=== PATIENT | male | born 1965 | race Hispanic/Latino ===

== ENCOUNTER 2018-01-14 23:32 | Emergency (ER) | payer MEDICAID ==
--- OUTSIDE RECORDS SUMMARY | 2018-01-14 23:40 | XMS REPORT ---
:1965 [facility] Address [address] [place] [address] [address] [place] [address] Care Team Providers Name Role Phone WAYNE HEATH Unavailable Unavailable ZOE, TOMASZ JULIO Unavailable Unavailable ISABELLA, ANJELICA WEAVER Unavailable Unavailable LOREN, BETH MARTINEZ Unavailable Unavailable Problems This patient has no known problems. Allergies, Adverse Reactions, Alerts This patient has no known allergies or adverse reactions. Medications This patient has no known medications. Results Test Description Test Time Test Comments Text Results Atomic Results Result Comments CHINA KNEE, 2018-01-06 11:15:00 Reason for FINAL REPORT PATIENT COMPLETE (4 exam:->FALL, PAIN ID: [id number] VIEWS), RIGHT Bilateral knee series INDICATION: Fall, pain COMPARISON: None available IMPRESSION: Four images of the right knee and four images of the left knee are provided. The bones appear demineralized. No evident acute fracture or dislocation is seen bilaterally. Mild joint space loss suggests degenerative arthritic changes. Small knee joint effusions are suspected. There are extensive bilateral vascular calcifications. Signed: Tatiana Quezada MDReport Verified Date/Time: 01/06/2018 11:15:08 Reading Location: [facility] Radiology Reading Room A KNEE, 2018-01-06 11:15:00 Reason for FINAL REPORT PATIENT COMPLETE (4 exam:->FALL, PAIN ID: [id number] VIEWS), LEFT Bilateral knee series INDICATION: Fall, pain COMPARISON: None available IMPRESSION: Four images of the right knee and four images of the left knee are provided. The bones appear demineralized. No evident acute fracture or dislocation is seen bilaterally. Mild joint space loss suggests degenerative arthritic changes. Small knee joint effusions are suspected. There are extensive bilateral vascular calcifications. Signed: Tatiana Quezada MDReport Verified Date/Time: 01/06/2018 11:15:08 Reading Location: [facility] Reading Room W/PLT COUNT & AUTO DIFFERENTIAL 2018-01-06 10:58:00 Test Item Value Reference Range Comments WHITE BLOOD CELL COUNT (BEAKER) (test pubr=337) 2.9 K/ L 3.5-10.5 RED BLOOD CELL COUNT (BEAKER) (test huwl=504) 2.27 M/ L 4.63-6.08 HEMOGLOBIN (BEAKER) (test ptym=505) 7.1 GM/DL 13.7-17.5 HEMATOCRIT (BEAKER) (test mjkw=138) 21.0 % 40.1-51.0 MEAN CORPUSCULAR VOLUME (BEAKER) (test ekyx=741) 92.5 fL 79.0-92.2 MEAN CORPUSCULAR HEMOGLOBIN (BEAKER) (test afve=561) 31.3 pg 25.7-32.2 MEAN CORPUSCULAR HEMOGLOBIN CONC (BEAKER) (test uwkf=249) 33.8 GM/DL 32.3- 36.5 RED CELL DISTRIBUTION WIDTH (BEAKER) (test jpis=415) 17.2 % 11.6-14.4 PLATELET COUNT (BEAKER) (test uxpl=679) 42 K/CU MM 150-450 MEAN PLATELET VOLUME (BEAKER) (test mohk=232) 10.1 fL 9.4-12.4 NUCLEATED RED BLOOD CELLS (BEAKER) (test oklx=743) 0 /100 WBC 0-0 NEUTROPHILS RELATIVE PERCENT (BEAKER) (test yapt=465) 77 % LYMPHOCYTES RELATIVE PERCENT (BEAKER) (test lshj=288) 12 % MONOCYTES RELATIVE PERCENT (BEAKER) (test yuuc=771) 10 % EOSINOPHILS RELATIVE PERCENT (BEAKER) (test vyzr=540) 1 % BASOPHILS RELATIVE PERCENT (BEAKER) (test slvc=276) 0 % NEUTROPHILS ABSOLUTE COUNT (BEAKER) (test uhez=668) 2.21 K/ L 1.78-5.38 LYMPHOCYTES ABSOLUTE COUNT (BEAKER) (test nhfx=294) 0.33 K/ L 1.32-3.57 MONOCYTES ABSOLUTE COUNT (BEAKER) (test dsjq=878) 0.30 K/ L 0.30-0.82 EOSINOPHILS ABSOLUTE COUNT (BEAKER) (test efmz=026) 0.03 K/ L 0.04-0.54 BASOPHILS ABSOLUTE COUNT (BEAKER) (test nsgb=141) 0.00 K/ L 0.01-0.08 IMMATURE GRANULOCYTES-RELATIVE PERCENT (BEAKER) (test 0 % 0-1 rgvj=2899) [id number] 06:06:00 Test Item Value Reference Range Comments PHOSPHORUS (BEAKER) (test degc=827) 3.6 mg/dL 2.3-4.7 [id number] 06:06:00 Test Item Value Reference Range Comments MAGNESIUM (BEAKER) (test sese=784) 2.0 mg/dL 1.6-2.6 BASIC METABOLIC [id number] 06:06:00 Test Item Value Reference Range Comments SODIUM (BEAKER) (test 130 meq/L 136-145 uqgb=830) POTASSIUM (BEAKER) (test 4.4 meq/L 3.5-5.1 ikwh=099) CHLORIDE (BEAKER) (test 100 meq/L 98-107 qkhq=094) CO2 (BEAKER) (test 23 meq/L 22-29 iltc=176) BLOOD UREA NITROGEN 21 mg/dL 7-21 (BEAKER) (test ncum=565) CREATININE (BEAKER) (test 1.11 mg/dL 0.57-1.25 ukab=936) GLUCOSE RANDOM (BEAKER) 120 mg/dL 70-105 (test yaqu=305) CALCIUM (BEAKER) (test 9.4 mg/dL 8.4-10.2 pamf=905) EGFR (BEAKER) (test 70 mL/min/1.73 sq m ESTIMATED GFR IS NOT wlzk=8815) ACCURATE CREATININE CLEARANCE IN PREDICTING GLOMERULAR FILTRATION RATE. ESTIMATED GFR IS NOT APPLICABLE FOR DIALYSIS PATIENTS. Specimen slightly ictericPROTHROMBIN [id number] 06:02:00 Test Item Value Reference Range Comments PROTIME (BEAKER) (test wbhy=928) 22.9 seconds 11.7-14.7 INR (BEAKER) (test bxlm=864) 2.0 <=5.9 RECOMMENDED COUMADIN/WARFARIN INR THERAPY RANGESSTANDARD DOSE: 2.0 - 3.0 Includes: PROPHYLAXIS forvenous thrombosis, systemic embolization; TREATMENT for venous thrombosis and/or pulmonary embolus.HIGH RISK: Target INR is 2.5-3.5 for patients with mechanical heart valves.CALCIUM, [id number] 06:01:00 Test Item Value Reference Range Comments CALCIUM IONIZED (BEAKER) (test pqxe=360) 1.11 mmol/L 1.12-1.27 PH, BLOOD (BEAKER) (test vzzc=3087) 7.53 CORTISOL,60 [id number] 23:20:00 Test Item Value Reference Range Comments CORTISOL BASELINE NETWORKED (BEAKER) (test 4.8 mcg/dL teco=9305) CORTISOL 30 MINUTE NETWORKED (BEAKER) (test 9.2 mcg/dL wvll=1739) CORTISOL, 60 MINUTE (BEAKER) (test wvaz=2533) 12.6 ug/dL ACTH STIMULATION TEST INTERPRETATION GUIDELINES(Synonyms: Cortrosyn Test, Cosyntropin or Corticotropin Stimulation Test)Adenocorticotropic hormone (ACTH) is a tropic hormone, made in the pituitary gland, which travels trhough the bloodstream and stimulates the cortex of the adrenal glands to release cortisol. Cortisol is a primary hormone, which aids the body's metabolism of fats, carbohydrates, and protein as well as sodium and potassium regulation.ACTH Stimulation Test: Exogenous administrationof biologically active ACTH stimulates the secretion of cortisol from the adrenal gland. This test is used to evaluate adrenal function by measuring cortisol levels at baseline and at 30 and 60 minutesafter the administration of 250 micrograms of cosyntropin (Cortrosyn). Patients who have received exogenous corticosteroids immediately prior to performing the ACTH Stimulation Test will often have elevated baseline cortisol levels, which may lead to erroneous interpretation of test results. The notable exception is with dexamethasone.Normal Response: An increase in cortisol after stimulation by ACTHis normal. Post-stimulation cortisol concentration should be greater than 20 mcg/dL or the rate of rise from baseline cortisol should be greater than or equal to 9 mcg/dL.Patients with sepsis or septicshock: According to a study by Mindy et al (NEVAEH 2000,283( 8):2792-45), the ACTH Stimulation Test provides important prognostic information. This study defined 3 groups of patients with sepsis or septic shock : 1. Good Survival: Low basal cortisol (<or=34 mcg/dL) and high ACTH response (>9mcg/dL) 2. Intermediate Survival: Low basal cortisol (< 34 mcg/dL) and low response to ACTH (<or=9 mcg/dL) OR High basal cortisol (>34 mcg/dL) or high ACTH response (>9 mcg/dL) 3.Poor Survival: High basal cortisol (>34 mcg/dL) and low ACTH response (<or=9 mcg/dL) .Treatment of patients with relative adrenal dysfunction may be indicated based on test results and the clinical condition of the patient. Additional information, including treatment recommendations, is available in critically ill patients, approved by the Pharmacy, Nutrition, and Therapeutics Committee on 10/05/2004 and available through the Pharmacy Policy and Procedure Section on The Source.Do not run this test if systemic hydrocortisone, methylprednisolone, prednisolone or prednisone has been administered within the past 24 hours. Draw baseline cortisol level just prior to cosyntropin administration. Administer cosyntropin 0.25 mg diluted in 2-5 mL of normal saline slow IV Push over a period of 2 minutes. Draw serum cortisol level 30 minutes after cosyntropin administration. Draw serum cortisollevel 60 minutes after cosyntropin administration.CORTISOL,30 [id number] 22:35:00 Test Item Value Reference Range Comments CORTISOL BASELINE NETWORKED (BEAKER) (test 4.8 mcg/dL aomq=1969) CORTISOL, 30 MINUTE (BEAKER) (test yhax=0628) 9.2 ug/dL ACTH STIMULATION TEST INTERPRETATION GUIDELINES(Synonyms: Cortrosyn Test, Cosyntropin or Corticotropin Stimulation Test)Adenocorticotropic hormone (ACTH) is a tropic hormone, made in the pituitary gland, which travels trhough the bloodstream and stimulates the cortex of the adrenal glands to release cortisol. Cortisol is a primary hormone, which aids the body's metabolism of fats, carbohydrates, and protein as well as sodium and potassium regulation.ACTH Stimulation Test: Exogenous administrationof biologically active ACTH stimulates the secretion of cortisol from the adrenal gland. This test is used to evaluate adrenal function by measuring cortisol levels at baseline and at 30 and 60 minutesafter the administration of 250 micrograms of cosyntropin (Cortrosyn). Patients who have received exogenous corticosteroids immediately prior to performing the ACTH Stimulation Test will often have elevated baseline cortisol levels, which may lead to erroneous interpretation of test results. The notable exception is with dexamethasone.Normal Response: An increase in cortisol after stimulation by ACTHis normal. Post-stimulation cortisol concentration should be greater than 20 mcg/dL or the rate of rise from baseline cortisol should be greater than or equal to 9 mcg/dL.Patients with sepsis or septicshock: According to a study by Mindy et al (NEVAEH 2000,283( 8):1038-45), the ACTH Stimulation Test provides important prognostic information. This study defined 3 groups of patients with sepsis or septic shock : 1. Good Survival: Low basal cortisol (<or=34 mcg/dL) and high ACTH response (>9mcg/dL) 2. Intermediate Survival: Low basal cortisol (< 34 mcg/dL) and low response to ACTH (<or=9 mcg/dL) OR High basal cortisol (>34 mcg/dL) or high ACTH response (>9 mcg/dL) 3.Poor Survival: High basal cortisol (>34 mcg/dL) and low ACTH response (<or=9 mcg/dL) .Treatment of patients with relative adrenal dysfunction may be indicated based on test results and the clinical condition of the patient. Additional information, including treatment recommendations, is available in critically ill patients, approved by the Pharmacy, Nutrition, and Therapeutics Committee on 10/05/2004 and available through the Pharmacy Policy and Procedure Section on The Source.Do not run this test if systemic hydrocortisone, methylprednisolone, prednisolone or prednisone has been administered within the past 24 hours. Draw baseline cortisol level just prior to cosyntropin administration. Administer cosyntropin 0.25 mg diluted in 2-5 mL of normal saline slow IV Push over a period of 2 minutes. Draw serum cortisol level 30 minutes after cosyntropin administration. Draw serum cortisollevel 60 minutes after cosyntropin administration.CORTISOL,[id number] 22:35:00 Test Item Value Reference Range Comments CORTISOL, BASELINE (TUNG) (test iofm=8755) 4.8 ug/dL ACTH STIMULATION TEST INTERPRETATION GUIDELINES(Synonyms: Cortrosyn Test, Cosyntropin or Corticotropin Stimulation Test)Adenocorticotropic hormone (ACTH) is a tropic hormone, made in the pituitary gland, which travels trhough the bloodstream and stimulates the cortex of the adrenal glands to release cortisol. Cortisol is a primary hormone, which aids the body's metabolism of fats, carbohydrates, and protein as well as sodium and potassium regulation.ACTH Stimulation Test: Exogenous administrationof biologically active ACTH stimulates the secretion of cortisol from the adrenal gland. This test is used to evaluate adrenal function by measuring cortisol levels at baseline and at 30 and 60 minutesafter the administration of 250 micrograms of cosyntropin (Cortrosyn). Patients who have received exogenous corticosteroids immediately prior to performing the ACTH Stimulation Test will often have elevated baseline cortisol levels, which may lead to erroneous interpretation of test results. The notable exception is with dexamethasone.Normal Response: An increase in cortisol after stimulation by ACTHis normal. Post-stimulation cortisol concentration should be greater than 20 mcg/dL or the rate of rise from baseline cortisol should be greater than or equal to 9 mcg/dL.Patients with sepsis or septicshock: According to a study by Mindy et al (NEVAEH 2000,283( 8):1038-45), the ACTH Stimulation Test provides important prognostic information. This study defined 3 groups of patients with sepsis or septic shock : 1. Good Survival: Low basal cortisol (<or=34 mcg/dL) and high ACTH response (>9mcg/dL) 2. Intermediate Survival: Low basal cortisol (< 34 mcg/dL) and low response to ACTH (<or=9 mcg/dL) OR High basal cortisol (>34 mcg/dL) or high ACTH response (>9 mcg/dL) 3.Poor Survival: High basal cortisol (>34 mcg/dL) and low ACTH response (<or=9 mcg/dL) .Treatment of patients with relative adrenal dysfunction may be indicated based on test results and the clinical condition of the patient. Additional information, including treatment recommendations, is available in critically ill patients, approved by the Pharmacy, Nutrition, and Therapeutics Committee on 10/05/2004 and available through the Pharmacy Policy and Procedure Section on The Source.Do not run this test if systemic hydrocortisone, methylprednisolone, prednisolone or prednisone has been administered within the past 24 hours. Draw baseline cortisol level just prior to cosyntropin administration. Administer cosyntropin 0.25 mg diluted in 2-5 mL of normal saline slow IV Push over a period of 2 minutes. Draw serum cortisol level 30 minutes after cosyntropin administration. Draw serum cortisollevel 60 minutes after cosyntropin administration.U/S, [id number] 17:54:00Reason for exam:->therapeuticFINAL REPORT History: Ascites. PROCEDURE: Following informed written consent,the patient's right lower quadrant was prepped and draped in the usual sterile manner. 2% lidocaine was given locally for anesthesia. No conscious sedation was administered. Using ultrasound guidance, a 5 Swedish one-step catheter was advanced percutaneously into the patient's right lower quadrant peritoneal cavity. Approximately 6.2 L of yellow fluid was removed. Small samples of the fluid were submitted to the lab for requested analysis. At the conclusion of the procedure, the catheter was withdrawn. Overall, the patient tolerated the procedure well without immediate complications and was discharged from the department in stable condition. FINDINGS: Limited sonographic examination of the abdomen performed prior to and during the procedure demonstrates a large volume of anechoic fluid in the peritoneal cavity. Following placement of the catheter, the catheter tip is noted to lie within the largest collection of fluid in the right lower quadrant. IMPRESSION: 1. Successful uncomplicated ultrasound-guided paracentesis. Signed: Karina Rain MDReport Verified Date/Time: 01/05/2018 17: 54:16 Reading Location: [place] [id number] Ul[facility] Reading Room [id number] 11:19:00 Test Item Value Reference Range Comments CORTISOL, TOTAL (BEAKER) (test xxli=4601) 2.7 ug/dL 3.7-19.4 [id number] 10:21:00 Test Item Value Reference Range Comments PHOSPHORUS (BEAKER) (test inng=276) 2.8 mg/dL 2.3-4.7 [id number] 10:21:00 Test Item Value Reference Range Comments MAGNESIUM (BEAKER) (test tggc=505) 1.9 mg/dL 1.6-2.6 BASIC METABOLIC [id number] 10:21:00 Test Item Value Reference Range Comments SODIUM (BEAKER) (test 127 meq/L 136-145 nsky=667) POTASSIUM (BEAKER) (test 5.0 meq/L 3.5-5.1 vsav=975) CHLORIDE (BEAKER) (test 100 meq/L 98-107 anjn=732) CO2 (BEAKER) (test 22 meq/L 22-29 hifo=198) BLOOD UREA NITROGEN 25 mg/dL 7-21 (BEAKER) (test rrrj=819) CREATININE (BEAKER) (test 1.17 mg/dL 0.57-1.25 mswy=810) GLUCOSE RANDOM (BEAKER) 84 mg/dL 70-105 (test wmxx=614) CALCIUM (BEAKER) (test 8.7 mg/dL 8.4-10.2 nmuf=608) EGFR (BEAKER) (test 65 mL/min/1.73 sq m ESTIMATED GFR IS NOT afah=7516) ACCURATE CREATININE CLEARANCE IN PREDICTING GLOMERULAR FILTRATION RATE. ESTIMATED GFR IS NOT APPLICABLE FOR DIALYSIS PATIENTS. Specimen slightly ictericCBC W/PLT COUNT & AUTO [id number] 08:42 :00 Test Item Value Reference Range Comments WHITE BLOOD CELL COUNT (BEAKER) (test otfe=582) 2.7 K/ L 3.5-10.5 RED BLOOD CELL COUNT (BEAKER) (test fgxe=103) 2.33 M/ L 4.63-6.08 HEMOGLOBIN (BEAKER) (test clhu=212) 7.3 GM/DL 13.7-17.5 HEMATOCRIT (BEAKER) (test xznp=988) 22.0 % 40.1-51.0 MEAN CORPUSCULAR VOLUME (BEAKER) (test hhdv=593) 94.4 fL 79.0-92.2 MEAN CORPUSCULAR HEMOGLOBIN (BEAKER) (test 31.3 pg 25.7-32.2 fxfu=227) MEAN CORPUSCULAR HEMOGLOBIN CONC (BEAKER) (test 33.2 GM/DL 32.3-36.5 axcc=221) RED CELL DISTRIBUTION WIDTH (BEAKER) (test 17.2 % 11.6-14.4 fgxk=063) PLATELET COUNT (BEAKER) (test ktxa=316) 45 K/CU MM 150-450 MEAN PLATELET VOLUME (BEAKER) (test yxqk=308) 9.3 fL 9.4-12.4 NUCLEATED RED BLOOD CELLS (BEAKER) (test 0 /100 WBC 0-0 nidb=351) NEUTROPHILS RELATIVE PERCENT (BEAKER) (test 60 % rzqi=794) LYMPHOCYTES RELATIVE PERCENT (BEAKER) (test 17 % sefj=369) MONOCYTES RELATIVE PERCENT (BEAKER) (test 16 % ipya=359) EOSINOPHILS RELATIVE PERCENT (BEAKER) (test 6 % gnto=725) BASOPHILS RELATIVE PERCENT (BEAKER) (test 0 % znui=466) NEUTROPHILS ABSOLUTE COUNT (BEAKER) (test 1.63 K/ L 1.78-5.38 zivh=645) LYMPHOCYTES ABSOLUTE COUNT (BEAKER) (test 0.45 K/ L 1.32-3.57 rgxz=199) MONOCYTES ABSOLUTE COUNT (BEAKER) (test rpss=951) 0.44 K/ L 0.30-0.82 EOSINOPHILS ABSOLUTE COUNT (BEAKER) (test 0.16 K/ L 0.04-0.54 zbbd=887) BASOPHILS ABSOLUTE COUNT (BEAKER) (test mpwo=456) 0.01 K/ L 0.01-0.08 IMMATURE GRANULOCYTES-RELATIVE PERCENT (BEAKER) 1 % 0-1 (test lhda=8426) (MANUAL DIFFERENTIAL)2018-01-05 08:42:00 Test Item Value Reference Range Comments TOTAL COUNTED (BEAKER) (test arcl=5373) WBC MORPHOLOGY (BEAKER) (test xfrs=461) Normal PLT MORPHOLOGY (BEAKER) (test rodz=210) Normal ANISOCYTOSIS (BEAKER) (test rdjw=942) 1+ few CALCIUM, [id number] 08:10:00 Test Item Value Reference Range Comments CALCIUM IONIZED (BEAKER) (test nnuy=632) 1.08 mmol/L 1.12-1.27 PH, BLOOD (BEAKER) (test ztqy=8635) 7.44 PROTHROMBIN [id number] 07:12:00 Test Item Value Reference Range Comments PROTIME (BEAKER) (test xecz=178) 22.4 seconds 11.7-14.7 INR (BEAKER) (test srgm=718) 2.0 <=5.9 RECOMMENDED COUMADIN/WARFARIN INR THERAPY RANGESSTANDARD DOSE: 2.0 - 3.0 Includes: PROPHYLAXIS forvenous thrombosis, systemic embolization; TREATMENT for venous thrombosis and/or pulmonary embolus.HIGH RISK: Target INR is 2.5-3.5 for patients with mechanical heart valves.[id number] 17:54:00 Test Item Value Reference Range Comments SODIUM (BEAKER) (test ykqd=955) 129 meq/L 136-145 POTASSIUM (BEAKER) (test ywri=268) 5.5 meq/L 3.5-5.1 CHLORIDE (BEAKER) (test sbqg=468) 101 meq/L 98-107 CO2 (BEAKER) (test yshf=464) 26 meq/L 22-29 Call [id number] with resultsCBC (HEMOGRAM ONLY)2018-01-04 07:16:00 Test Item Value Reference Range Comments WHITE BLOOD CELL COUNT (BEAKER) (test axvv=338) 2.9 K/ L 3.5-10.5 RED BLOOD CELL COUNT (BEAKER) (test lshv=266) 2.25 M/ L 4.63-6.08 HEMOGLOBIN (BEAKER) (test afab=204) 7.3 GM/DL 13.7-17.5 HEMATOCRIT (BEAKER) (test qdio=260) 21.3 % 40.1-51.0 MEAN CORPUSCULAR VOLUME (BEAKER) (test frba=928) 94.7 fL 79.0-92.2 MEAN CORPUSCULAR HEMOGLOBIN (BEAKER) (test 32.4 pg 25.7-32.2 lfgb=296) MEAN CORPUSCULAR HEMOGLOBIN CONC (BEAKER) (test 34.3 GM/DL 32.3-36.5 rsjf=206) RED CELL DISTRIBUTION WIDTH (BEAKER) (test 17.6 % 11.6-14.4 ubow=658) PLATELET COUNT (BEAKER) (test paag=509) 59 K/CU MM 150-450 MEAN PLATELET VOLUME (BEAKER) (test uqlp=491) 11.3 fL 9.4-12.4 NUCLEATED RED BLOOD CELLS (BEAKER) (test 0 /100 WBC 0-0 okyf=720) COMPREHENSIVE METABOLIC [id number] 06:49:00 Test Item Value Reference Range Comments TOTAL PROTEIN (BEAKER) 5.3 gm/dL 6.0-8.3 Specimen slightly (test viqg=132) hemolyzed ALBUMIN (BEAKER) (test 3.3 g/dL 3.5-5.0 Specimen slightly qoxu=5053) hemolyzed ALKALINE PHOSPHATASE 81 U/L 40-150 (BEAKER) (test ircb=185) BILIRUBIN TOTAL (BEAKER) 2.4 mg/dL 0.2-1.2 Specimen slightly (test dybz=345) hemolyzed SODIUM (BEAKER) (test 127 meq/L 136-145 zcom=801) POTASSIUM (BEAKER) (test 5.7 meq/L 3.5-5.1 Specimen slightly vxqb=999) hemolyzed CHLORIDE (BEAKER) (test 100 meq/L 98-107 awem=117) CO2 (BEAKER) (test 20 meq/L 22-29 dafq=442) BLOOD UREA NITROGEN 22 mg/dL 7-21 (BEAKER) (test plei=978) CREATININE (BEAKER) (test 1.14 mg/dL 0.57-1.25 Specimen slightly lwzf=201) hemolyzed GLUCOSE RANDOM (BEAKER) 96 mg/dL 70-105 (test gyef=323) CALCIUM (BEAKER) (test 8.9 mg/dL 8.4-10.2 aaon=878) AST (SGOT) (BEAKER) (test 30 U/L 5-34 Specimen slightly uddn=296) hemolyzed ALT (SGPT) (BEAKER) (test 8 U/L 6-55 Specimen slightly zzuo=297) hemolyzed EGFR (BEAKER) (test 67 mL/min/1.73 sq m ESTIMATED GFR IS NOT tevl=4314) ACCURATE CREATININE CLEARANCE IN PREDICTING GLOMERULAR FILTRATION RATE. ESTIMATED GFR IS NOT APPLICABLE FOR DIALYSIS PATIENTS. Specimen slightly ictericPROTHROMBIN [id number] 06:15:00 Test Item Value Reference Range Comments PROTIME (BEAKER) (test mqhr=239) 22.7 seconds 11.7-14.7 INR (BEAKER) (test tcxu=937) 2.0 <=5.9 RECOMMENDED COUMADIN/WARFARIN INR THERAPY RANGESSTANDARD DOSE: 2.0 - 3.0 Includes: PROPHYLAXIS forvenous thrombosis, systemic embolization; TREATMENT for venous thrombosis and/or pulmonary embolus.HIGH RISK: Target INR is 2.5-3.5 for patients with mechanical heart valves.VITAMIN B12 AND [id number] 16:39 :00 Test Item Value Reference Range Comments VITAMIN B12 (BEAKER) (test tcwo=055) 829 pg/mL 213-816 FOLATE (BEAKER) (test tnbj=538) 18.9 ng/mL >=7.0 CALCIUM, [id number] 07:14:00 Test Item Value Reference Range Comments CALCIUM IONIZED (BEAKER) (test xqnx=522) 1.08 mmol/L 1.12-1.27 PH, BLOOD (BEAKER) (test zkat=7735) 7.41 COMPREHENSIVE METABOLIC [id number] 07:00:00 Test Item Value Reference Range Comments TOTAL PROTEIN (BEAKER) 5.0 gm/dL 6.0-8.3 (test bkao=048) ALBUMIN (BEAKER) (test 3.1 g/dL 3.5-5.0 jwpr=1587) ALKALINE PHOSPHATASE 65 U/L 40-150 (BEAKER) (test ekkj=982) BILIRUBIN TOTAL (BEAKER) 2.5 mg/dL 0.2-1.2 (test yrld=360) SODIUM (BEAKER) (test 127 meq/L 136-145 syzm=114) POTASSIUM (BEAKER) (test 4.7 meq/L 3.5-5.1 xkhh=591) CHLORIDE (BEAKER) (test 99 meq/L 98-107 pltx=526) CO2 (BEAKER) (test 23 meq/L 22-29 sifn=793) BLOOD UREA NITROGEN 21 mg/dL 7-21 (BEAKER) (test esbz=117) CREATININE (BEAKER) (test 1.13 mg/dL 0.57-1.25 knnh=860) GLUCOSE RANDOM (BEAKER) 92 mg/dL 70-105 (test seqy=405) CALCIUM (BEAKER) (test 8.9 mg/dL 8.4-10.2 ifdd=347) AST (SGOT) (BEAKER) (test 18 U/L 5-34 gnwg=233) ALT (SGPT) (BEAKER) (test 8 U/L 6-55 iqud=701) EGFR (BEAKER) (test 68 mL/min/1.73 sq m ESTIMATED GFR IS NOT ftyp=5574) ACCURATE CREATININE CLEARANCE IN PREDICTING GLOMERULAR FILTRATION RATE. ESTIMATED GFR IS NOT APPLICABLE FOR DIALYSIS PATIENTS. [id number] 06:37:00 Test Item Value Reference Range Comments PHOSPHORUS (BEAKER) (test xtpr=742) 3.2 mg/dL 2.3-4.7 [id number] 06:37:00 Test Item Value Reference Range Comments MAGNESIUM (BEAKER) (test msnt=928) 1.9 mg/dL 1.6-2.6 CBC (HEMOGRAM ONLY)2018-01-03 06:25:00 Test Item Value Reference Range Comments WHITE BLOOD CELL COUNT (BEAKER) (test fcpx=431) 3.1 K/ L 3.5-10.5 RED BLOOD CELL COUNT (BEAKER) (test sxur=068) 2.31 M/ L 4.63-6.08 HEMOGLOBIN (BEAKER) (test vycw=512) 7.4 GM/DL 13.7-17.5 HEMATOCRIT (BEAKER) (test zosh=154) 21.6 % 40.1-51.0 MEAN CORPUSCULAR VOLUME (BEAKER) (test asjn=601) 93.5 fL 79.0-92.2 MEAN CORPUSCULAR HEMOGLOBIN (BEAKER) (test 32.0 pg 25.7-32.2 uixq=148) MEAN CORPUSCULAR HEMOGLOBIN CONC (BEAKER) (test 34.3 GM/DL 32.3-36.5 dhjt=520) RED CELL DISTRIBUTION WIDTH (BEAKER) (test 17.4 % 11.6-14.4 ncsf=382) PLATELET COUNT (BEAKER) (test zcix=222) 50 K/CU MM 150-450 MEAN PLATELET VOLUME (BEAKER) (test lzci=216) 10.5 fL 9.4-12.4 NUCLEATED RED BLOOD CELLS (BEAKER) (test 0 /100 WBC 0-0 otti=168) PROTHROMBIN TIME/[id number] 06:09:00 Test Item Value Reference Range Comments PROTIME (BEAKER) (test uwjy=419) 22.2 seconds 11.7-14.7 INR (BEAKER) (test gckc=523) 2.0 <=5.9 RECOMMENDED COUMADIN/WARFARIN INR THERAPY RANGESSTANDARD DOSE: 2.0 - 3.0 Includes: PROPHYLAXIS forvenous thrombosis, systemic embolization; TREATMENT for venous thrombosis and/or pulmonary embolus.HIGH RISK: Target INR is 2.5-3.5 for patients with mechanical heart valves.[id number] 07:54:00 Test Item Value Reference Range Comments PHOSPHORUS (BEAKER) (test btny=470) 3.2 mg/dL 2.3-4.7 [id number] 07:54:00 Test Item Value Reference Range Comments MAGNESIUM (BEAKER) (test nbhw=098) 1.4 mg/dL 1.6-2.6 COMPREHENSIVE METABOLIC [id number] 07:54:00 Test Item Value Reference Range Comments TOTAL PROTEIN (BEAKER) 5.3 gm/dL 6.0-8.3 (test tmfo=454) ALBUMIN (BEAKER) (test 3.4 g/dL 3.5-5.0 gxgk=1147) ALKALINE PHOSPHATASE 55 U/L 40-150 (BEAKER) (test xicg=634) BILIRUBIN TOTAL (BEAKER) 3.9 mg/dL 0.2-1.2 (test epfl=200) SODIUM (BEAKER) (test 131 meq/L 136-145 yuve=994) POTASSIUM (BEAKER) (test 4.3 meq/L 3.5-5.1 vctu=566) CHLORIDE (BEAKER) (test 101 meq/L 98-107 zwrx=483) CO2 (BEAKER) (test 23 meq/L 22-29 mhnz=739) BLOOD UREA NITROGEN 19 mg/dL 7-21 (BEAKER) (test qovm=628) CREATININE (BEAKER) (test 0.97 mg/dL 0.57-1.25 ruoz=613) GLUCOSE RANDOM (BEAKER) 80 mg/dL 70-105 (test cscv=971) CALCIUM (BEAKER) (test 9.4 mg/dL 8.4-10.2 hvaz=607) AST (SGOT) (BEAKER) (test 17 U/L 5-34 xqxl=684) ALT (SGPT) (BEAKER) (test 8 U/L 6-55 bbsb=513) EGFR (BEAKER) (test 81 mL/min/1.73 sq m ESTIMATED GFR IS NOT mddc=9158) ACCURATE CREATININE CLEARANCE IN PREDICTING GLOMERULAR FILTRATION RATE. ESTIMATED GFR IS NOT APPLICABLE FOR DIALYSIS PATIENTS. Specimen slightly ictericCBC W/PLT COUNT & AUTO [id number] 07:14 :00 Test Item Value Reference Range Comments WHITE BLOOD CELL COUNT (BEAKER) (test xpeu=773) 2.9 K/ L 3.5-10.5 RED BLOOD CELL COUNT (BEAKER) (test gygh=129) 2.55 M/ L 4.63-6.08 HEMOGLOBIN (BEAKER) (test toif=489) 8.1 GM/DL 13.7-17.5 HEMATOCRIT (BEAKER) (test ivei=426) 23.7 % 40.1-51.0 MEAN CORPUSCULAR VOLUME (BEAKER) (test uclc=356) 92.9 fL 79.0-92.2 MEAN CORPUSCULAR HEMOGLOBIN (BEAKER) (test 31.8 pg 25.7-32.2 vnys=412) MEAN CORPUSCULAR HEMOGLOBIN CONC (BEAKER) (test 34.2 GM/DL 32.3-36.5 xtct=370) RED CELL DISTRIBUTION WIDTH (BEAKER) (test 17.5 % 11.6-14.4 jrmm=314) PLATELET COUNT (BEAKER) (test yrqr=878) 50 K/CU MM 150-450 MEAN PLATELET VOLUME (BEAKER) (test vuil=997) 9.5 fL 9.4-12.4 NUCLEATED RED BLOOD CELLS (BEAKER) (test 0 /100 WBC 0-0 nbol=190) NEUTROPHILS RELATIVE PERCENT (BEAKER) (test 57 % hnxr=463) LYMPHOCYTES RELATIVE PERCENT (BEAKER) (test 17 % ncwq=645) MONOCYTES RELATIVE PERCENT (BEAKER) (test 18 % tvyg=177) EOSINOPHILS RELATIVE PERCENT (BEAKER) (test 7 % hmbi=297) BASOPHILS RELATIVE PERCENT (BEAKER) (test 0 % lytw=215) NEUTROPHILS ABSOLUTE COUNT (BEAKER) (test 1.65 K/ L 1.78-5.38 vxrl=574) LYMPHOCYTES ABSOLUTE COUNT (BEAKER) (test 0.49 K/ L 1.32-3.57 qsze=294) MONOCYTES ABSOLUTE COUNT (BEAKER) (test fjmk=982) 0.51 K/ L 0.30-0.82 EOSINOPHILS ABSOLUTE COUNT (BEAKER) (test 0.20 K/ L 0.04-0.54 cdyu=405) BASOPHILS ABSOLUTE COUNT (BEAKER) (test jjbd=979) 0.01 K/ L 0.01-0.08 IMMATURE GRANULOCYTES-RELATIVE PERCENT (BEAKER) 1 % 0-1 (test btkx=3230) (MANUAL DIFFERENTIAL)2018-01-02 07:14:00 Test Item Value Reference Range Comments TOTAL COUNTED (BEAKER) (test fkog=3946) CALCIUM, [id number] 07:04:00 Test Item Value Reference Range Comments CALCIUM IONIZED (BEAKER) (test mwmo=880) 1.07 mmol/L 1.12-1.27 PH, BLOOD (BEAKER) (test xyjz=8464) 7.49 PROTHROMBIN [id number] 06:42:00 Test Item Value Reference Range Comments PROTIME (BEAKER) (test fjbf=697) 24.6 seconds 11.7-14.7 INR (BEAKER) (test wllg=287) 2.2 <=5.9 RECOMMENDED COUMADIN/WARFARIN INR THERAPY RANGESSTANDARD DOSE: 2.0 - 3.0 Includes: PROPHYLAXIS forvenous thrombosis, systemic embolization; TREATMENT for venous thrombosis and/or pulmonary embolus.HIGH RISK: Target INR is 2.5-3.5 for patients with mechanical heart valves.CYTOMEGALOVIRUS ANTIBODY, [id number] 14:58:00 Test Item Value Reference Range Comments CYTOMEGALOVIRUS IGG ANTIBODY (BEAKER) (test Positive qdfa=998) CYTOMEGALOVIRUS ANTIBODY, [id number] 14:58:00 Test Item Value Reference Range Comments CYTOMEGALOVIRUS IGM ANTIBODY (BEAKER) (test Negative naai=592) EBV-VCA ANTIBODY, [id number] 14:58:00 Test Item Value Reference Range Comments MARCELLUS-DAVIS VCA IGG (BEAKER) (test fefq=507) Positive EBV-VCA ANTIBODY, [id number] 14:58:00 Test Item Value Reference Range Comments MARCELLUS-DAVIS VCA IGM (BEAKER) (test iddf=110) Negative BODY FLUID CELL COUNT WITH [id number] 14:27:00 Test Item Value Reference Range Comments APPEARANCE FLUID (BEAKER) (test ygpz=338) Slightly Hazy Clear COLOR FLUID (BEAKER) (test jwee=189) Yellow Colorless, Straw RBC FLUID (BEAKER) (test tvbl=549) 378 /cu mm <=1 ADJUSTED WBC FLUID (BEAKER) (test cicl=2723) 84 /cu mm <=5 LINING CELLS (BEAKER) (test kwgk=2552) 17 /cu mm <=1 NEUTROPHILS FLUID (BEAKER) (test nazu=8925) 1 % LYMPHS FLUID (BEAKER) (test zrth=102) 14 % MONO/MACROPHAGE FLUID (BEAKER) (test 85 % llsb=315) EOSINOPHILS FLUID (BEAKER) (test qvjf=923) 0 % BASO FLUID (BEAKER) (test ejel=655) 0 % CONTAINER BODY FLUID (BEAKER) (test EDTA Tube prjw=5623) U/S, [id number] 11:17:00Reason for exam:->ascitesFINAL REPORT Ultrasound guided paracentesis, 01/01/2018. Clinical History:Ascites. Sedation: None. Drapery Hanger: Paul Butler MD Gas Treater: None. Estimated Blood Loss: < 1 cc. Specimen: 9000 cc of clear yellow fluid, samples sent to laboratory. Technique: Informed consent was obtained. The risks of pain, bleeding, infection, bowel perforation, injury to adjacent structures, and adverse medication reactions were discussed with the patient. After informed consent was obtained, the patient's abdomen was scanned. The right lower quadrant of theabdomen was selected for paracentesis. After the largest fluid pocket area was marked, and the anterior abdominal wall was evaluated with color Doppler to exclude presence of blood vessels traversing the area, the skin was prepped and draped in the usual sterile manner. After local anesthesia was achieved with 1% lidocaine, a 5 Swedish one-step catheter was advanced into the peritoneal cavity under ultrasound guidance. After completion of drainage, the catheter was removed. There was no evidence ofcomplication. Patient Disposition: The patient was transferred to the inpatient unit from the ultrasound department after the paracentesis, in good condition. Impression:Successful ultrasound guided paracentesis. Signed: Paul Butler MDReport Verified Date/Time: 01/01/2018 11:17:26 Reading Location: [address] Ultrasound Reading Room CBC W/PLT COUNT & AUTO [id number] 08:55:00 Test Item Value Reference Range Comments WHITE BLOOD CELL COUNT (BEAKER) (test krva=239) 2.6 K/ L 3.5-10.5 RED BLOOD CELL COUNT (BEAKER) (test rfeo=974) 2.17 M/ L 4.63-6.08 HEMOGLOBIN (BEAKER) (test zvuf=480) 6.9 GM/DL 13.7-17.5 HEMATOCRIT (BEAKER) (test bgxi=867) 20.6 % 40.1-51.0 MEAN CORPUSCULAR VOLUME (BEAKER) (test gbvw=056) 94.9 fL 79.0-92.2 MEAN CORPUSCULAR HEMOGLOBIN (BEAKER) (test 31.8 pg 25.7-32.2 utez=596) MEAN CORPUSCULAR HEMOGLOBIN CONC (BEAKER) (test 33.5 GM/DL 32.3-36.5 ojvi=343) RED CELL DISTRIBUTION WIDTH (BEAKER) (test 17.0 % 11.6-14.4 kabb=493) PLATELET COUNT (BEAKER) (test pfaq=304) 43 K/CU MM 150-450 MEAN PLATELET VOLUME (BEAKER) (test lloc=053) 9.3 fL 9.4-12.4 NUCLEATED RED BLOOD CELLS (BEAKER) (test 0 /100 WBC 0-0 abim=639) NEUTROPHILS RELATIVE PERCENT (BEAKER) (test 62 % xawq=416) LYMPHOCYTES RELATIVE PERCENT (BEAKER) (test 13 % wfnc=331) MONOCYTES RELATIVE PERCENT (BEAKER) (test 18 % xxnk=956) EOSINOPHILS RELATIVE PERCENT (BEAKER) (test 6 % dtnk=864) BASOPHILS RELATIVE PERCENT (BEAKER) (test 0 % fykl=853) NEUTROPHILS ABSOLUTE COUNT (BEAKER) (test 1.58 K/ L 1.78-5.38 alph=608) LYMPHOCYTES ABSOLUTE COUNT (BEAKER) (test 0.33 K/ L 1.32-3.57 rzuu=541) MONOCYTES ABSOLUTE COUNT (BEAKER) (test jqao=247) 0.46 K/ L 0.30-0.82 EOSINOPHILS ABSOLUTE COUNT (BEAKER) (test 0.15 K/ L 0.04-0.54 kddy=627) BASOPHILS ABSOLUTE COUNT (BEAKER) (test yrla=492) 0.01 K/ L 0.01-0.08 IMMATURE GRANULOCYTES-RELATIVE PERCENT (BEAKER) 1 % 0-1 (test ctjl=4135) (MANUAL DIFFERENTIAL)2018-01-01 08:55:00 Test Item Value Reference Range Comments TOTAL COUNTED (BEAKER) (test fidx=4256) CALCIUM, [id number] 07:43:00 Test Item Value Reference Range Comments CALCIUM IONIZED (BEAKER) (test bdbe=649) 1.14 mmol/L 1.12-1.27 PH, BLOOD (BEAKER) (test dhzi=2532) 7.52 [id number] 06:11:00 Test Item Value Reference Range Comments PHOSPHORUS (BEAKER) (test yevx=996) 2.5 mg/dL 2.3-4.7 [id number] 06:11:00 Test Item Value Reference Range Comments MAGNESIUM (BEAKER) (test bldd=462) 1.7 mg/dL 1.6-2.6 COMPREHENSIVE METABOLIC [id number] 06:11:00 Test Item Value Reference Range Comments TOTAL PROTEIN (BEAKER) 5.6 gm/dL 6.0-8.3 (test mvhr=465) ALBUMIN (BEAKER) (test 3.6 g/dL 3.5-5.0 msic=1496) ALKALINE PHOSPHATASE 68 U/L 40-150 (BEAKER) (test mbtn=049) BILIRUBIN TOTAL (BEAKER) 2.7 mg/dL 0.2-1.2 (test tbmg=168) SODIUM (BEAKER) (test 132 meq/L 136-145 djah=922) POTASSIUM (BEAKER) (test 4.9 meq/L 3.5-5.1 smnx=608) CHLORIDE (BEAKER) (test 102 meq/L 98-107 olhg=043) CO2 (BEAKER) (test 24 meq/L 22-29 nosv=046) BLOOD UREA NITROGEN 20 mg/dL 7-21 (BEAKER) (test eunv=263) CREATININE (BEAKER) (test 1.17 mg/dL 0.57-1.25 purz=045) GLUCOSE RANDOM (BEAKER) 92 mg/dL 70-105 (test frms=822) CALCIUM (BEAKER) (test 9.7 mg/dL 8.4-10.2 ywde=189) AST (SGOT) (BEAKER) (test 16 U/L 5-34 phnt=105) ALT (SGPT) (BEAKER) (test 8 U/L 6-55 dhvm=254) EGFR (BEAKER) (test 65 mL/min/1.73 sq m ESTIMATED GFR IS NOT sngd=8066) ACCURATE CREATININE CLEARANCE IN PREDICTING GLOMERULAR FILTRATION RATE. ESTIMATED GFR IS NOT APPLICABLE FOR DIALYSIS PATIENTS. Specimen slightly ictericPROTHROMBIN TIME/[id number] 06:00:00 Test Item Value Reference Range Comments PROTIME (TUNG) (test xflv=270) 24.0 seconds 11.7-14.7 INR (TUNG) (test qfcv=748) 2.2 <=5.9 RECOMMENDED COUMADIN/WARFARIN INR THERAPY RANGESSTANDARD DOSE: 2.0 - 3.0 Includes: PROPHYLAXIS forvenous thrombosis, systemic embolization; TREATMENT for venous thrombosis and/or pulmonary embolus.HIGH RISK: Target INR is 2.5-3.5 for patients with mechanical heart valves.CT, CHEST, WITHOUT [id number] 19:24:00FINAL REPORT HISTORY: Lung nodule, >=1cm COMPARISON : Chest CT dated 02/11/2017 and a chest x-ray dated 12/30/2017 Technique : Multiple axial images of the chest were performed from the lung apices to the lung bases without the administration of IV contrast. Images were presented in both the lung and soft tissue windows. This exam was performed according to our departmental dose optimization program which includes automated exposure control, adjustment of the mA and/or kV according to patient size and/or use of iterative reconstructive technique. Comment: The thyroid gland iswithin normal limits. There is no hilar, mediastinal or axillary lymphadenopathy. There is atherosclerotic vascular disease. There is coronary atherosclerosis. The visualized portions of the adrenal glands, pancreas, and kidneys are within normal limits. There is hepatic cirrhosis. The patient does have splenomegaly. There is a moderate-large amount of partially visualized upper abdominal ascites/free fluid. Multilevel degenerative disc changes of the thoracic spine are seen. The patient does have gynecomastia. No pneumothorax or pleural effusion is seen. The patient does have COPD/emphysema. Thereare bibasilar areas of some linear subsegmental atelectasis versus scarring. In the right lower lobe, there is an elongated nodular density identified measuring up to 2.6 x 1.1 cm. While this could be a component of some atelectasis or parenchymal airspace disease, a lung mass/neoplasm cannot be entirely excluded but is considered less likely. This finding can either be closely followed by chest CT or correlated with a PET-CT scan. Impression: 1. Bibasilar areas of some linear subsegmental atelectasis versus scarring. 2. Elongated nodular density in the right lower lobe that likely corresponds to the finding on the prior chest x-ray. More likely, this represents a component of some atelectasis or some focal airspace disease such as pneumonitis or aspiration. However, this finding should be eitherclosely followed by chest CT or correlated with a PET- CT scan to exclude a mass/neoplasm. 3. COPD/emphysema. 4. Hepatic cirrhosis, splenomegaly and upper abdominal ascites. Signed: Nick Landeros MDReport Verified Date/Time: 12/31/2017 19:24:12 Reading Location: [facility] [id number] Consult Reading Room 07: 24 PMPERIPHERAL BLOOD SMEAR - HOLD [id number] 19:18:00 Test Item Value Reference Range Comments PERIPHERAL SMEAR SAVE (BEAKER) prepared and saved smear, (test jzax=7993) 12/31/17 RETICULOCYTE [id number] 19:14:00 Test Item Value Reference Range Comments RETICULOCYTE COUNT PCT (BEAKER) (test flmk=532) 3.5 % 0.5-1.8 LACTATE DEHYDROGENASE (LDH)2017-12-31 17:47:00 Test Item Value Reference Range Comments LACTATE DEHYDROGENASE (BEAKER) (test avea=384) 112 U/L 125-220 BLOOD GAS, [id number] 17:27:00 Test Item Value Reference Range Comments PH ARTERIAL (BEAKER) (test eryc=829) 7.45 7.35-7.45 PCO2 ARTERIAL (BEAKER) (test jfnf=860) 36 mmHg 35-45 PO2 ARTERIAL (BEAKER) (test kvjk=396) 76 mmHg 80-90 O2 SATURATION ARTERIAL (BEAKER) (test tebe=104) 96.1 % 96.0-97.0 HCO3 ARTERIAL (BEAKER) (test upkb=220) 24 mmol/L 21-29 BASE EXCESS ARTERIAL (BEAKER) (test nott=163) 0.2 mmol/L -2.0-3.0 PATIENT TEMPERATURE (BEAKER) (test lhqg=8416) 36.4 C FIO2 (BEAKER) (test ukzc=5893) 21.0 % MYOCARD IMAGING, MULTI, PHARM, [id number] 15:12:00FINAL REPORT PROCEDURE: Rest/Stress MYOCARDIAL PERFUSION SPECT with regadenoson\XA9\ CPT CODE: 11705 INDICATION: Liver transplant evaluation HISTORY: Cardiac risk factors: Stroke. Other cardiovascular history: No reported CAD. Recent cardiac symptoms:Dyspnea. Current cardiovascular-related medications: None reported. PROTOCOL: 10.8 mCi of Tc -99m sestamibi was injected iv at rest, and SPECT (tomographic) images were obtained. Also, 32.0 mCi of Tc-99m sestamibi was injected iv at expected peak pharmacologic effect, and gated SPECT images were obtained. PRELIMINARY STRESS TEST DATA FROM NONINVASIVE CARDIOLOGY: Pharmacologic stress was by 10-second iv infusion of 0.4 mg of regadenoson. Radiotracer was injected 30 seconds after start of stress. Heart rate was 78 beats/min at rest and 83 beats/min (49 % of MPHR) at tracer injection. BP was 112/75 mmHg at rest and 100/73 mmHg at tracer injection. Stress was stopped for predetermined endpoint. The patient experienced no symptoms; treatment was not required. Preliminary ECG evaluation revealed normal sinus rhythm at rest and no ischemic changes with stress. ( Final ECG interpretation and other stress and monitoring data are reported separately by Cardiology.) IMAGING FINDINGS: Study quality is good. Images obtained after rest and stress injections show normal LV activity. LV and RV volumes appear normal. Gated images obtained at rest after stress show normal LV wall motion and thickening. QGS LVEF is >70%. IMPRESSION: 1. Normal study. 2. Appropriate pharmacologic stress. 3. Normal myocardial perfusion. 4. Normal resting LV function. 5. Normal extracardiac tracer distribution. 6. No previous [facility] study for comparison. NONINVASIVE RISK STRATIFICATION: The above findings are considered low risk (<1% annual mortality rate) based on the following criterion:- Normal orsmall myocardial perfusion defect at rest or with stress(JACC. 2012;59(9):857-81.) Signed: Quinten Napier MDReport Verified Date/Time: 12/31/2017 15:12:03 Reading Location: [address] Reading Room BILIRUBIN, [id number] 14:10:00 Test Item Value Reference Range Comments BILIRUBIN DIRECT (BEAKER) (test kxwh=808) 1.6 mg/dL 0.1-0.5 HEMOGLOBIN AND [id number] 13:22:00 Test Item Value Reference Range Comments HEMOGLOBIN (BEAKER) (test ltvt=035) 7.3 GM/DL 13.7-17.5 HEMATOCRIT (BEAKER) (test ltmz=538) 21.9 % 40.1-51.0 CBC W/PLT COUNT & AUTO [id number] 11:06:00 Test Item Value Reference Range Comments WHITE BLOOD CELL COUNT (BEAKER) (test ycdr=709) 2.2 K/ L 3.5-10.5 RED BLOOD CELL COUNT (BEAKER) (test gtnj=868) 2.07 M/ L 4.63-6.08 HEMOGLOBIN (BEAKER) (test zubc=069) 6.8 GM/DL 13.7-17.5 HEMATOCRIT (BEAKER) (test tsiq=031) 19.6 % 40.1-51.0 MEAN CORPUSCULAR VOLUME (BEAKER) (test urcm=016) 94.7 fL 79.0-92.2 MEAN CORPUSCULAR HEMOGLOBIN (BEAKER) (test 32.9 pg 25.7-32.2 bagv=964) MEAN CORPUSCULAR HEMOGLOBIN CONC (BEAKER) (test 34.7 GM/DL 32.3-36.5 biry=013) RED CELL DISTRIBUTION WIDTH (BEAKER) (test 16.9 % 11.6-14.4 ztke=631) PLATELET COUNT (BEAKER) (test sesl=800) 47 K/CU MM 150-450 MEAN PLATELET VOLUME (BEAKER) (test fdyk=841) 9.7 fL 9.4-12.4 NUCLEATED RED BLOOD CELLS (BEAKER) (test 0 /100 WBC 0-0 dxps=098) NEUTROPHILS RELATIVE PERCENT (BEAKER) (test 54 % iqlx=683) LYMPHOCYTES RELATIVE PERCENT (BEAKER) (test 17 % aufz=246) MONOCYTES RELATIVE PERCENT (BEAKER) (test 21 % ypis=021) EOSINOPHILS RELATIVE PERCENT (BEAKER) (test 8 % qixl=196) BASOPHILS RELATIVE PERCENT (BEAKER) (test 1 % jbbh=404) NEUTROPHILS ABSOLUTE COUNT (BEAKER) (test 1.17 K/ L 1.78-5.38 xflw=811) LYMPHOCYTES ABSOLUTE COUNT (BEAKER) (test 0.36 K/ L 1.32-3.57 lsrl=831) MONOCYTES ABSOLUTE COUNT (BEAKER) (test kafu=656) 0.45 K/ L 0.30-0.82 EOSINOPHILS ABSOLUTE COUNT (BEAKER) (test 0.17 K/ L 0.04-0.54 kinj=627) BASOPHILS ABSOLUTE COUNT (BEAKER) (test qstt=224) 0.01 K/ L 0.01-0.08 IMMATURE GRANULOCYTES-RELATIVE PERCENT (BEAKER) 1 % 0-1 (test mqhv=3337) (MANUAL DIFFERENTIAL)2017-12-31 11:06:00 Test Item Value Reference Range Comments TOTAL COUNTED (BEAKER) (test lbtn=8346) [id number] 08:37:00 Test Item Value Reference Range Comments PROTIME (BEAKER) (test rhqq=741) 24.0 seconds 11.7-14.7 INR (BEAKER) (test wlnp=270) 2.2 <=5.9 PARTIAL THROMBOPLASTIN TIME (BEAKER) (test 55.2 seconds 22.5-36.0 tdoc=150) RECOMMENDED COUMADIN/WARFARIN INR THERAPY RANGESSTANDARD DOSE: 2.0 - 3.0 Includes: PROPHYLAXIS forvenous thrombosis, systemic embolization; TREATMENT for venous thrombosis and/or pulmonary embolus.HIGH RISK: Target INR is 2.5-3.5 for patients with mechanical heart valves.COMPREHENSIVE METABOLIC [id number] 06:37:00 Test Item Value Reference Range Comments TOTAL PROTEIN (BEAKER) 5.7 gm/dL 6.0-8.3 (test wpoi=011) ALBUMIN (BEAKER) (test 3.7 g/dL 3.5-5.0 swhp=0161) ALKALINE PHOSPHATASE 70 U/L 40-150 (BEAKER) (test aypu=938) BILIRUBIN TOTAL (BEAKER) 2.6 mg/dL 0.2-1.2 (test pydy=559) SODIUM (BEAKER) (test 130 meq/L 136-145 wlib=022) POTASSIUM (BEAKER) (test 5.2 meq/L 3.5-5.1 npaw=561) CHLORIDE (BEAKER) (test 100 meq/L 98-107 hrnl=813) CO2 (BEAKER) (test 25 meq/L 22-29 vgnk=178) BLOOD UREA NITROGEN 20 mg/dL 7-21 (BEAKER) (test slwl=498) CREATININE (BEAKER) (test 1.08 mg/dL 0.57-1.25 kxau=874) GLUCOSE RANDOM (BEAKER) 91 mg/dL 70-105 (test nvfo=151) CALCIUM (BEAKER) (test 9.6 mg/dL 8.4-10.2 xahf=694) AST (SGOT) (BEAKER) (test 16 U/L 5-34 zeff=784) ALT (SGPT) (BEAKER) (test 6 U/L 6-55 ncry=977) EGFR (BEAKER) (test 72 mL/min/1.73 sq m ESTIMATED GFR IS NOT ftpk=4788) ACCURATE CREATININE CLEARANCE IN PREDICTING GLOMERULAR FILTRATION RATE. ESTIMATED GFR IS NOT APPLICABLE FOR DIALYSIS PATIENTS. Specimen slightly [id number] 06:01:00 Test Item Value Reference Range Comments RPR SCREEN (BEAKER) (test lqbh=834) Nonreactive Nonreactive CRYPTOCOCCAL [id number] 05:59:00 Test Item Value Reference Range Comments CRYPTOCOCCAL ANTIGEN, SERUM (BEAKER) (test Negative Negative, Interference vtlg=0367) RAD, MANDIBLE, MIN 4 [id number] 01:37:00Reason for exam:->liver transplant evalShould this be performed at the bedside?->YesFINAL REPORT EXAMINATION: MANDIBULAR SERIES, 6 VIEWS CLINICAL INDICATION: TRANSPLANT CANDIDATE. EVALUATE FOR ODONTOGENIC INFECTION. IMPRESSION : No definite evidence of odontogenic infection. The paranasal sinuses and mastoid air cells appear well pneumatized. Orbits are unremarkable. Bony calvarium is mildly heterogeneous with small scattered nonspecific sclerotic foci. Maxillofacial / head CT could be performed for further evaluation if warranted. Bone scan could also be performed to evaluate metabolic activity of the small scattered sclerotic calvarial foci. Signed: Slick Barcenas MDReport Verified Date/Time: 12/31/2017 01:37:57 Reading Location: [address] Reading Room Electronically signed by: SLICK BARCENAS M.D. on 04/2018 01:37 AMRAD, CHEST, 2 [id number] 23:32:00Reason for exam:-> liver transplant evalShould this be performed at the bedside?->YesFINAL REPORT EXAMINATION: 2 VIEW CHEST CLINICAL INDICATION: Liver failure. Transplant candidate IMPRESSION: Compared with February 14, 2017. Of note, a small new or more conspicuouspatchy nodular 2-3 cm opacity projects over the right lung base near the level of the diaphragm. Although the finding may reflect artifact from superimposed soft tissue and bony structures including a prominent right inferior pulmonary artery, a nonspecific pulmonary nodule should also be considered. Thin curvilinear opacities are again noted in both lungs. The morphology, distribution and relative stability favor scarring and/or subsegmental atelectasis. Mild pulmonary edema is difficult to exclude. The heart size is normal. Mediastinal contours are sharp and grossly similar to the prior study. No definite evidence of an acute osseous abnormality or pneumothorax. Chest CT could be performed for further evaluation if warranted. Signed: Slick Barcenas MDReport Verified Date/Time: 12/30/2017 23:32:31 Reading Location: [address] Reading Room HEMOGLOBIN [id number] 22:54:00 Test Item Value Reference Range Comments HEMOGLOBIN A1C (BEAKER) (test ssse=188) 4.1 % 4.3-6.1 HEPATITIS B SURFACE [id number] 16:31:00 Test Item Value Reference Range Comments HEPATITIS B SURFACE ANTIBODY (BEAKER) (test < mIU/mL <8.0 gdry=964) HEPATITIS B SURFACE [id number] 16:29:00 Test Item Value Reference Range Comments HEPATITIS B SURFACE ANTIGEN (2) (BEAKER) (test Nonreactive Nonreactive rpsk=3202) HEPATITIS B CORE ANTIBODY, [id number] 16:29:00 Test Item Value Reference Range Comments HEPATITIS B CORE IGM ANTIBODY (BEAKER) (test Nonreactive Nonreactive uqhh=478) HEPATITIS A ANTIBODY, [id number] 16:29:00 Test Item Value Reference Range Comments HEPATITIS A IGM ANTIBODY (BEAKER) (test Nonreactive Nonreactive weto=548) HEPATITIS B CORE ANTIBODY, [id number] 16:29:00 Test Item Value Reference Range Comments HEPATITIS B CORE TOTAL ANTIBODY (BEAKER) (test Nonreactive Nonreactive dkxt=847) [id number] 16:26:00 Test Item Value Reference Range Comments T4 TOTAL (BEAKER) (test fdik=932) 3.5 ug/dL 4.9-11.7 [id number] 16:26:00 Test Item Value Reference Range Comments T3 TOTAL (BEAKER) (test juqf=623) 42 ng/dL 48-159 [id number] 16:24:00 Test Item Value Reference Range Comments FERRITIN (BEAKER) (test fhiu=375) 1460 ng/mL 5-275 VITAMIN D, 98-[id number] 16:24:00 Test Item Value Reference Range Comments VITAMIN D 25-OH (BEAKER) (test lnlo=1129) 6.9 ng/mL 6.6-49.9 Effective 08/06/2017: Reference Range ChangeNew: 6.6-49.9 ng/mL Previous: 13.0 -47.8 ng/mLRecommended Vitamin D Target Range: 30.0-40.0 ng/[id number] 16: 24:00 Test Item Value Reference Range Comments THYROID STIMULATING HORMONE (BEAKER) (test 1.55 uIU/mL 0.35-4.94 olcw=482) CARCINOEMBRYONIC ANTIGEN (CEA)2017-12-30 16:24:00 Test Item Value Reference Range Comments CARCINOEMBRYONIC ANTIGEN (BEAKER) (test jlki=235) 3.0 ng/mL 0.0-5.0 [id number] 16:23:00 Test Item Value Reference Range Comments PROSTATE SPECIFIC ANTIGEN (BEAKER) (test zsfy=922) 0.1 ng/mL 0.0-4.0 HIV-1 ANTIGEN WITH HIV-1/2 [id number] 16:23:00 Test Item Value Reference Range Comments HIV-1 ANTIGEN WITH HIV 1\T\2 ANTIBODY (2) Nonreactive Nonreactive (BEAKER) (test yfyl=7678) HEPATITIS C [id number] 16:23:00 Test Item Value Reference Range Comments HEPATITIS C ANTIBODY (BEAKER) (test ziak=540) Nonreactive Nonreactive LIPID [id number] 16:06:00 Test Item Value Reference Range Comments TRIGLYCERIDES (BEAKER) (test bote=448) 38 mg/dL CHOLESTEROL (BEAKER) (test ugch=329) 51 mg/dL HDL CHOLESTEROL (BEAKER) (test hztu=553) 10 mg/dL LDL CHOLESTEROL CALCULATED (BEAKER) (test atbs=114) 33 mg/dL Triglyceride Reference Range: Low Risk <150 Borderline 150- 199 High Risk 200-499 Very High Risk >=500Cholesterol Reference Range: Low Risk <200 Borderline 200-239 High Risk > 240HDL Cholesterol Reference Range: Low Risk >=60 High Risk <40LDL Cholesterol Reference Range: Optimal <100 Near Optimal 100-129 Borderline 130-159 High 160-189 Very High >=190 Specimen slightly ictericIRON, TIBC, % SAT. (WITHOUT FERRITIN) 2017-12-30 16:04:00 Test Item Value Reference Range Comments IRON (BEAKER) (test mbos=031) 90 ug/dL 40-160 TOTAL IRON BINDING CAPACITY (BEAKER) (test 85 ug/dL 250-450 hfvn=332) IRON % SATURATION (2) (BEAKER) (test ilvc=7685) 106 % 20-55 [id number] 16:04:00 Test Item Value Reference Range Comments TRANSFERRIN (BEAKER) (test ofga=847) 65 mg/dL 174-382 Specimen slightly ictericURIC [id number] 16:02:00 Test Item Value Reference Range Comments URIC ACID (BEAKER) (test omam=106) 8.5 mg/dL 2.6-7.2 Specimen slightly [id number] 15:50:00 Test Item Value Reference Range Comments FIBRINOGEN LEVEL (BEAKER) (test vmon=685) 161 mg/dl 225-434 BODY FLUID CULTURE + GRAM [id number] 11:45:00 Test Item Value Reference Range Comments CULTURE (BEAKER) (test myrc=0213) No growth GRAM STAIN RESULT (BEAKER) (test No WBCs ujkv=6472) GRAM STAIN RESULT (BEAKER) (test No organisms seen yahx=20988) CBC W/PLT COUNT & AUTO [id number] 08:05:00 Test Item Value Reference Range Comments WHITE BLOOD CELL COUNT (BEAKER) (test ttxa=369) 2.0 K/ L 3.5-10.5 RED BLOOD CELL COUNT (BEAKER) (test unje=125) 2.20 M/ L 4.63-6.08 HEMOGLOBIN (BEAKER) (test weox=348) 7.1 GM/DL 13.7-17.5 HEMATOCRIT (BEAKER) (test uupb=194) 20.8 % 40.1-51.0 MEAN CORPUSCULAR VOLUME (BEAKER) (test xfvr=264) 94.5 fL 79.0-92.2 MEAN CORPUSCULAR HEMOGLOBIN (BEAKER) (test 32.3 pg 25.7-32.2 apwr=777) MEAN CORPUSCULAR HEMOGLOBIN CONC (BEAKER) (test 34.1 GM/DL 32.3-36.5 mjja=096) RED CELL DISTRIBUTION WIDTH (BEAKER) (test 17.0 % 11.6-14.4 lknx=646) PLATELET COUNT (BEAKER) (test vlbc=167) 52 K/CU MM 150-450 MEAN PLATELET VOLUME (BEAKER) (test togs=441) 10.7 fL 9.4-12.4 NUCLEATED RED BLOOD CELLS (BEAKER) (test 0 /100 WBC 0-0 ygrg=304) NEUTROPHILS RELATIVE PERCENT (BEAKER) (test 55 % nkxe=423) LYMPHOCYTES RELATIVE PERCENT (BEAKER) (test 16 % flhx=535) MONOCYTES RELATIVE PERCENT (BEAKER) (test 20 % fzhk=949) EOSINOPHILS RELATIVE PERCENT (BEAKER) (test 8 % vhaq=735) BASOPHILS RELATIVE PERCENT (BEAKER) (test 1 % inet=517) NEUTROPHILS ABSOLUTE COUNT (BEAKER) (test 1.10 K/ L 1.78-5.38 jdmo=729) LYMPHOCYTES ABSOLUTE COUNT (BEAKER) (test 0.32 K/ L 1.32-3.57 zpgm=076) MONOCYTES ABSOLUTE COUNT (BEAKER) (test dwzy=506) 0.40 K/ L 0.30-0.82 EOSINOPHILS ABSOLUTE COUNT (BEAKER) (test 0.16 K/ L 0.04-0.54 lxfk=374) BASOPHILS ABSOLUTE COUNT (BEAKER) (test zgpe=085) 0.01 K/ L 0.01-0.08 IMMATURE GRANULOCYTES-RELATIVE PERCENT (BEAKER) 1 % 0-1 (test akmm=7548) (MANUAL DIFFERENTIAL)2017-12-30 08:05:00 Test Item Value Reference Range Comments TOTAL COUNTED (BEAKER) (test yuty=4636) URINALYSIS W/ [id number] 06:46:00 Test Item Value Reference Range Comments COLOR (BEAKER) (test irul=547) Yellow CLARITY (BEAKER) (test whvd=855) Clear SPECIFIC GRAVITY UA (BEAKER) (test coek=794) 1.008 1.001-1.035 PH UA (BEAKER) (test dmcd=461) 6.0 5.0-8.0 PROTEIN UA (BEAKER) (test enhq=506) Negative Negative GLUCOSE UA (BEAKER) (test welj=314) Negative Negative KETONES UA (BEAKER) (test jkil=409) Negative Negative BILIRUBIN UA (BEAKER) (test qhzu=598) Negative Negative BLOOD UA (BEAKER) (test hapf=897) Negative Negative NITRITE UA (BEAKER) (test blfq=641) Negative Negative LEUKOCYTE ESTERASE UA (BEAKER) (test wwnb=825) Negative Negative UROBILINOGEN UA (BEAKER) (test psjr=056) 0.2 mg/dL 0.2-1.0 RBC UA (BEAKER) (test gawj=502) 0 /HPF WBC UA (BEAKER) (test djgg=703) 0 /HPF HYALINE CASTS (BEAKER) (test vbec=738) 5 /LPF SOURCE(BEAKER) (test elih=2212) Urine, Voided SODIUM, RANDOM [id number] 06:35:00 Test Item Value Reference Range Comments SODIUM URINE (BEAKER) (test odpu=937) < meq/L Reference Range: No NormalsPROTEIN, RANDOM [id number] 06:35:00 Test Item Value Reference Range Comments PROTEIN, URINE (BEAKER) (test grfq=1189) < mg/dL 0-14 [id number] 06:21:00 Test Item Value Reference Range Comments MAGNESIUM (BEAKER) (test 1.8 mg/dL 1.6-2.6 Specimen slightly hemolyzed orqc=946) [id number] 06:21:00 Test Item Value Reference Range Comments PHOSPHORUS (BEAKER) (test 2.9 mg/dL 2.3-4.7 Specimen slightly hemolyzed zhrt=812) COMPREHENSIVE METABOLIC [id number] 06:21:00 Test Item Value Reference Range Comments TOTAL PROTEIN (BEAKER) 5.6 gm/dL 6.0-8.3 Specimen slightly (test czvj=211) hemolyzed ALBUMIN (BEAKER) (test 3.5 g/dL 3.5-5.0 Specimen slightly olnq=4076) hemolyzed ALKALINE PHOSPHATASE 75 U/L 40-150 (BEAKER) (test ovdm=573) BILIRUBIN TOTAL (BEAKER) 3.0 mg/dL 0.2-1.2 Specimen slightly (test hpbt=431) hemolyzed SODIUM (BEAKER) (test 127 meq/L 136-145 zjbj=561) POTASSIUM (BEAKER) (test 5.2 meq/L 3.5-5.1 Specimen slightly zlzh=086) hemolyzed CHLORIDE (BEAKER) (test 97 meq/L 98-107 cotd=449) CO2 (BEAKER) (test 24 meq/L 22-29 pnno=579) BLOOD UREA NITROGEN 22 mg/dL 7-21 (BEAKER) (test bemd=521) CREATININE (BEAKER) (test 1.11 mg/dL 0.57-1.25 Specimen slightly jkus=531) hemolyzed GLUCOSE RANDOM (BEAKER) 94 mg/dL 70-105 (test hhdj=932) CALCIUM (BEAKER) (test 9.4 mg/dL 8.4-10.2 rkny=064) AST (SGOT) (BEAKER) (test 22 U/L 5-34 Specimen slightly ghzk=895) hemolyzed ALT (SGPT) (BEAKER) (test 7 U/L 6-55 Specimen slightly nlya=056) hemolyzed EGFR (BEAKER) (test 70 mL/min/1.73 sq m ESTIMATED GFR IS NOT loom=0506) ACCURATE CREATININE CLEARANCE IN PREDICTING GLOMERULAR FILTRATION RATE. ESTIMATED GFR IS NOT APPLICABLE FOR DIALYSIS PATIENTS. Specimen slightly ictericCREATININE, RANDOM [id number] 06:19:00 Test Item Value Reference Range Comments CREATININE URINE (BEAKER) (test mieu=047) 60.6 mg/dL Reference Range: No [id number] 13:43:00 Test Item Value Reference Range Comments ETHANOL (BEAKER) (test wwwg=960) < mg/dL <=10 COMPREHENSIVE METABOLIC [id number] 08:23:00 Test Item Value Reference Range Comments TOTAL PROTEIN (BEAKER) 5.5 gm/dL 6.0-8.3 (test aapx=126) ALBUMIN (BEAKER) (test 3.3 g/dL 3.5-5.0 unbc=2590) ALKALINE PHOSPHATASE 85 U/L 40-150 (BEAKER) (test qhiu=045) BILIRUBIN TOTAL (BEAKER) 3.8 mg/dL 0.2-1.2 (test zryz=906) SODIUM (BEAKER) (test 125 meq/L 136-145 fpun=183) POTASSIUM (BEAKER) (test 4.7 meq/L 3.5-5.1 yjxs=233) CHLORIDE (BEAKER) (test 96 meq/L 98-107 dkzl=917) CO2 (BEAKER) (test 21 meq/L 22-29 wune=612) BLOOD UREA NITROGEN 22 mg/dL 7-21 (BEAKER) (test zkwd=268) CREATININE (BEAKER) (test 1.26 mg/dL 0.57-1.25 yqjl=222) GLUCOSE RANDOM (BEAKER) 95 mg/dL 70-105 (test owib=972) CALCIUM (BEAKER) (test 9.1 mg/dL 8.4-10.2 geov=919) AST (SGOT) (BEAKER) (test 20 U/L 5-34 nekc=903) ALT (SGPT) (BEAKER) (test 8 U/L 6-55 bywo=742) EGFR (BEAKER) (test 60 mL/min/1.73 sq m ESTIMATED GFR IS NOT hrgx=1118) ACCURATE CREATININE CLEARANCE IN PREDICTING GLOMERULAR FILTRATION RATE. ESTIMATED GFR IS NOT APPLICABLE FOR DIALYSIS PATIENTS. Specimen slightly ictericCBC W/PLT COUNT & AUTO [id number] 07:17 :00 Test Item Value Reference Range Comments WHITE BLOOD CELL COUNT (BEAKER) (test cvsc=514) 2.8 K/ L 3.5-10.5 RED BLOOD CELL COUNT (BEAKER) (test xswz=748) 2.28 M/ L 4.63-6.08 HEMOGLOBIN (BEAKER) (test ygdh=066) 7.3 GM/DL 13.7-17.5 HEMATOCRIT (BEAKER) (test uvaq=791) 21.4 % 40.1-51.0 MEAN CORPUSCULAR VOLUME (BEAKER) (test abxu=927) 93.9 fL 79.0-92.2 MEAN CORPUSCULAR HEMOGLOBIN (BEAKER) (test 32.0 pg 25.7-32.2 hzhn=113) MEAN CORPUSCULAR HEMOGLOBIN CONC (BEAKER) (test 34.1 GM/DL 32.3-36.5 ytzq=370) RED CELL DISTRIBUTION WIDTH (BEAKER) (test 16.9 % 11.6-14.4 oxid=326) PLATELET COUNT (BEAKER) (test mbrs=680) 52 K/CU MM 150-450 MEAN PLATELET VOLUME (BEAKER) (test pgku=973) 9.8 fL 9.4-12.4 NUCLEATED RED BLOOD CELLS (BEAKER) (test 0 /100 WBC 0-0 zoor=156) NEUTROPHILS RELATIVE PERCENT (BEAKER) (test 61 % uhpk=183) LYMPHOCYTES RELATIVE PERCENT (BEAKER) (test 14 % fffw=339) MONOCYTES RELATIVE PERCENT (BEAKER) (test 18 % rtbl=928) EOSINOPHILS RELATIVE PERCENT (BEAKER) (test 7 % ftsx=227) BASOPHILS RELATIVE PERCENT (BEAKER) (test 0 % mogh=686) NEUTROPHILS ABSOLUTE COUNT (BEAKER) (test 1.69 K/ L 1.78-5.38 vryi=519) LYMPHOCYTES ABSOLUTE COUNT (BEAKER) (test 0.38 K/ L 1.32-3.57 rbbj=226) MONOCYTES ABSOLUTE COUNT (BEAKER) (test vaql=186) 0.51 K/ L 0.30-0.82 EOSINOPHILS ABSOLUTE COUNT (BEAKER) (test 0.18 K/ L 0.04-0.54 jxoh=744) BASOPHILS ABSOLUTE COUNT (BEAKER) (test wodh=112) 0.01 K/ L 0.01-0.08 IMMATURE GRANULOCYTES-RELATIVE PERCENT (BEAKER) 1 % 0-1 (test pzzv=0496) CT, [id number] 22:20:00FINAL REPORT EXAM: CT of the abdomen and pelvis, without contrast CLINICAL HISTORY: Paracentesis yesterday with acute drop in hemoglobin. TECHNIQUE: CT of the abdomen and pelviswas performed without the intravenous administration of contrast. This exam was performed accordingto our departmental dose optimization program which includes automated exposure control, adjustment of the mA and/or kV according to patient's size and/or use of iterative reconstructive technique. COMPARISON: CT abdomen and pelvis 02/11/2017. FINDINGS: Please note study is limited due to lack of intravenous contrast. LOWER CHEST: Bilateral gynecomastia. Atherosclerotic calcifications of the coronaryarteries.LIVER: Cirrhotic morphology of the liver.BILE DUCTS: Within normal limits.GALL BLADDER: Cholelithiasis.PANCREAS: Within normal limits.SPLEEN: Mild splenomegaly.ADRENALS : Within normal limits.KIDNEYS/URETERS: Within normal limits. URINARY BLADDER: Apparent diffuse mural thickening is likely due to under distention.REPRODUCTIVE ORGANS: Within normal limits. BOWEL/MESENTERY: Few scattered colonic diverticula without acute diverticulitis. No bowel obstruction or abnormal wall thickening. Normalappendix. PERITONEUM/ RETROPERITONEUM: Large abdominal and pelvic ascites, which measures simple fluid in attenuation. No retroperitoneal hematoma. No free air or fluid collection. VESSELS: Atherosclerotic calcifications of the aorta and branches. LYMPH NODES: No abdominal or pelvic lymphadenopathy.SOFT TISSUES: Small loculated ascites in the periumbilical region likely within an umbilical herniaBONES: Generalized osteopenia. No suspicious osseous lesions. IMPRESSION : Nonhemorrhagic large abdominal and pelvic ascites. No retroperitoneal hematoma.Cirrhosis. Mild hepatomegaly.Cholelithiasis. Signed: Aba Auguste MDReport Verified Date/Time: 12/28/2017 22:20:52 Reading Location: [address] Transitional Reading Room CBC W/PLT COUNT & AUTO [id number] 18:06:00 Test Item Value Reference Range Comments WHITE BLOOD CELL COUNT (BEAKER) (test dvfm=070) 2.9 K/ L 3.5-10.5 RED BLOOD CELL COUNT (BEAKER) (test ghqw=202) 2.03 M/ L 4.63-6.08 HEMOGLOBIN (BEAKER) (test winv=872) 6.5 GM/DL 13.7-17.5 HEMATOCRIT (BEAKER) (test lolv=576) 19.2 % 40.1-51.0 MEAN CORPUSCULAR VOLUME (BEAKER) (test hsqy=411) 94.6 fL 79.0-92.2 MEAN CORPUSCULAR HEMOGLOBIN (BEAKER) (test 32.0 pg 25.7-32.2 rzmh=755) MEAN CORPUSCULAR HEMOGLOBIN CONC (BEAKER) (test 33.9 GM/DL 32.3-36.5 lvhs=608) RED CELL DISTRIBUTION WIDTH (BEAKER) (test 17.6 % 11.6-14.4 ozxs=121) PLATELET COUNT (BEAKER) (test jnqg=972) 46 K/CU MM 150-450 MEAN PLATELET VOLUME (BEAKER) (test qanj=800) 9.3 fL 9.4-12.4 NUCLEATED RED BLOOD CELLS (BEAKER) (test 0 /100 WBC 0-0 hdjx=009) NEUTROPHILS RELATIVE PERCENT (BEAKER) (test 66 % cqyt=781) LYMPHOCYTES RELATIVE PERCENT (BEAKER) (test 12 % kzku=705) MONOCYTES RELATIVE PERCENT (BEAKER) (test 15 % mlsr=814) EOSINOPHILS RELATIVE PERCENT (BEAKER) (test 6 % imnn=977) BASOPHILS RELATIVE PERCENT (BEAKER) (test 0 % heso=583) NEUTROPHILS ABSOLUTE COUNT (BEAKER) (test 1.92 K/ L 1.78-5.38 fxnr=136) LYMPHOCYTES ABSOLUTE COUNT (BEAKER) (test 0.36 K/ L 1.32-3.57 iypd=749) MONOCYTES ABSOLUTE COUNT (BEAKER) (test hzhb=764) 0.44 K/ L 0.30-0.82 EOSINOPHILS ABSOLUTE COUNT (BEAKER) (test 0.16 K/ L 0.04-0.54 zdck=523) BASOPHILS ABSOLUTE COUNT (BEAKER) (test fjla=970) 0.01 K/ L 0.01-0.08 IMMATURE GRANULOCYTES-RELATIVE PERCENT (BEAKER) 1 % 0-1 (test japr=1690) CBC W/PLT COUNT & AUTO [id number] 12:30:00 Test Item Value Reference Range Comments WHITE BLOOD CELL COUNT (BEAKER) (test auwd=003) 3.1 K/ L 3.5-10.5 RED BLOOD CELL COUNT (BEAKER) (test xypt=055) 2.09 M/ L 4.63-6.08 HEMOGLOBIN (BEAKER) (test gaji=248) 6.8 GM/DL 13.7-17.5 HEMATOCRIT (BEAKER) (test vppj=586) 19.9 % 40.1-51.0 MEAN CORPUSCULAR VOLUME (BEAKER) (test oxhw=830) 95.2 fL 79.0-92.2 MEAN CORPUSCULAR HEMOGLOBIN (BEAKER) (test 32.5 pg 25.7-32.2 gxed=176) MEAN CORPUSCULAR HEMOGLOBIN CONC (BEAKER) (test 34.2 GM/DL 32.3-36.5 epgu=034) RED CELL DISTRIBUTION WIDTH (BEAKER) (test 17.5 % 11.6-14.4 kfqu=728) PLATELET COUNT (BEAKER) (test sdmc=493) 65 K/CU MM 150-450 MEAN PLATELET VOLUME (BEAKER) (test twbm=999) 10.6 fL 9.4-12.4 NUCLEATED RED BLOOD CELLS (BEAKER) (test 0 /100 WBC 0-0 hkhd=799) NEUTROPHILS RELATIVE PERCENT (BEAKER) (test 60 % jkot=373) LYMPHOCYTES RELATIVE PERCENT (BEAKER) (test 14 % jqbq=312) MONOCYTES RELATIVE PERCENT (BEAKER) (test 17 % pwxz=792) EOSINOPHILS RELATIVE PERCENT (BEAKER) (test 8 % tlxx=762) BASOPHILS RELATIVE PERCENT (BEAKER) (test 0 % xrdh=929) NEUTROPHILS ABSOLUTE COUNT (BEAKER) (test 1.85 K/ L 1.78-5.38 dqde=198) LYMPHOCYTES ABSOLUTE COUNT (BEAKER) (test 0.42 K/ L 1.32-3.57 ukzz=748) MONOCYTES ABSOLUTE COUNT (BEAKER) (test qeoo=151) 0.52 K/ L 0.30-0.82 EOSINOPHILS ABSOLUTE COUNT (BEAKER) (test 0.26 K/ L 0.04-0.54 udwt=009) BASOPHILS ABSOLUTE COUNT (BEAKER) (test fljy=530) 0.01 K/ L 0.01-0.08 IMMATURE GRANULOCYTES-RELATIVE PERCENT (BEAKER) 1 % 0-1 (test itby=9240) U/S, [id number] 06:59:00Limit fluid removal to no more than 5 litersReason for exam:->ascites, concern for sbpShould thisbe performed at the bedside?->NoFINAL REPORT Paracentesis dated 2017 Procedure: Ultrasound-guided paracentesis. Preprocedure diagnosis: Ascites Postprocedure diagnosis: Ascites Conscious sedation: None. Radiologist: Lena Leah, M.D. Gas Treater: None Anesthesia: 1% Xylocaine mixed with sodium bicarbonate local anesthesia. Technique: After obtaining informed consent, ultrasound-guided paracentesis was performed under usual sterile technique. Using a 5 irish drainage catheter, puncture was made in the right lower quadrant abdomen. Approximately 5000 cc of serous fluid was removed. Patient tolerated the procedure well without complication. Complication: None Graft/ Implant: None Estimated Blood Loss: NoneImpression: Ultrasound-guided paracentesis. Signed: Lena Lynn Verified Date/Time: 12/28/2017 06:59 :16 Reading Location: [facility] B1 C013Y CT Body Reading Room ALPHA FETOPROTEIN (AFP), TUMOR [id number] 06:22:00 Test Item Value Reference Range Comments ALPHA-FETOPROTEIN (BEAKER) (test ddvm=2520) 4.1 ng/mL <10.0 COMPREHENSIVE METABOLIC [id number] 06:00:00 Test Item Value Reference Range Comments TOTAL PROTEIN (BEAKER) 5.3 gm/dL 6.0-8.3 (test yvqu=619) ALBUMIN (BEAKER) (test 2.7 g/dL 3.5-5.0 mmyq=5745) ALKALINE PHOSPHATASE 94 U/L 40-150 (BEAKER) (test unqb=129) BILIRUBIN TOTAL (BEAKER) 3.7 mg/dL 0.2-1.2 (test hxhj=524) SODIUM (BEAKER) (test 124 meq/L 136-145 dnsl=397) POTASSIUM (BEAKER) (test 4.6 meq/L 3.5-5.1 zrng=198) CHLORIDE (BEAKER) (test 96 meq/L 98-107 bcgy=523) CO2 (BEAKER) (test 22 meq/L 22-29 wccb=054) BLOOD UREA NITROGEN 22 mg/dL 7-21 (BEAKER) (test xfjv=752) CREATININE (BEAKER) (test 1.40 mg/dL 0.57-1.25 hpyt=233) GLUCOSE RANDOM (BEAKER) 89 mg/dL 70-105 (test xefo=977) CALCIUM (BEAKER) (test 8.8 mg/dL 8.4-10.2 rduf=505) AST (SGOT) (BEAKER) (test 25 U/L 5-34 tgls=899) ALT (SGPT) (BEAKER) (test 10 U/L 6-55 vecv=423) EGFR (BEAKER) (test 53 mL/min/1.73 sq m ESTIMATED GFR IS NOT sxmt=2302) ACCURATE CREATININE CLEARANCE IN PREDICTING GLOMERULAR FILTRATION RATE. ESTIMATED GFR IS NOT APPLICABLE FOR DIALYSIS PATIENTS. Specimen slightly ictericCBC W/PLT COUNT & AUTO [id number] 05:50 :00 Test Item Value Reference Range Comments WHITE BLOOD CELL COUNT (BEAKER) (test hvue=948) 3.1 K/ L 3.5-10.5 RED BLOOD CELL COUNT (BEAKER) (test imxs=536) 2.00 M/ L 4.63-6.08 HEMOGLOBIN (BEAKER) (test aljm=897) 6.4 GM/DL 13.7-17.5 HEMATOCRIT (BEAKER) (test hbdy=277) 18.9 % 40.1-51.0 MEAN CORPUSCULAR VOLUME (BEAKER) (test ntcw=986) 94.5 fL 79.0-92.2 MEAN CORPUSCULAR HEMOGLOBIN (BEAKER) (test 32.0 pg 25.7-32.2 fvpl=275) MEAN CORPUSCULAR HEMOGLOBIN CONC (BEAKER) (test 33.9 GM/DL 32.3-36.5 ucqg=220) RED CELL DISTRIBUTION WIDTH (BEAKER) (test 17.9 % 11.6-14.4 bxnw=648) PLATELET COUNT (BEAKER) (test myov=195) 59 K/CU MM 150-450 MEAN PLATELET VOLUME (BEAKER) (test mjuk=054) 10.4 fL 9.4-12.4 NUCLEATED RED BLOOD CELLS (BEAKER) (test 0 /100 WBC 0-0 efly=624) NEUTROPHILS RELATIVE PERCENT (BEAKER) (test 63 % ehky=565) LYMPHOCYTES RELATIVE PERCENT (BEAKER) (test 14 % riai=206) MONOCYTES RELATIVE PERCENT (BEAKER) (test 15 % rkft=532) EOSINOPHILS RELATIVE PERCENT (BEAKER) (test 7 % jcgu=488) BASOPHILS RELATIVE PERCENT (BEAKER) (test 0 % acpb=049) NEUTROPHILS ABSOLUTE COUNT (BEAKER) (test 1.94 K/ L 1.78-5.38 hosp=429) LYMPHOCYTES ABSOLUTE COUNT (BEAKER) (test 0.44 K/ L 1.32-3.57 rgta=535) MONOCYTES ABSOLUTE COUNT (BEAKER) (test asdb=552) 0.47 K/ L 0.30-0.82 EOSINOPHILS ABSOLUTE COUNT (BEAKER) (test 0.21 K/ L 0.04-0.54 pjot=409) BASOPHILS ABSOLUTE COUNT (BEAKER) (test sveo=269) 0.01 K/ L 0.01-0.08 IMMATURE GRANULOCYTES-RELATIVE PERCENT (BEAKER) 1 % 0-1 (test ygux=8690) BODY FLUID CELL COUNT WITH [id number] 20:39:00 Test Item Value Reference Range Comments APPEARANCE FLUID (BEAKER) (test udhe=627) Slightly Hazy Clear COLOR FLUID (BEAKER) (test mqdl=975) Yellow Colorless, Straw RBC FLUID (BEAKER) (test nblz=362) 90 /cu mm <=1 ADJUSTED WBC FLUID (BEAKER) (test rxsx=2472) 47 /cu mm <=5 LINING CELLS (BEAKER) (test nljc=4045) 3 /cu mm <=1 NEUTROPHILS FLUID (BEAKER) (test vnob=6802) 2 % LYMPHS FLUID (BEAKER) (test juvb=431) 19 % MONO/MACROPHAGE FLUID (BEAKER) (test 79 % uzni=036) EOSINOPHILS FLUID (BEAKER) (test nzkv=240) 0 % BASO FLUID (BEAKER) (test vtpi=898) 0 % CONTAINER BODY FLUID (BEAKER) (test EDTA Tube gsrn=9148) ALBUMIN, BODY [id number] 20:14:00 Test Item Value Reference Range Comments ALBUMIN FLUID (BEAKER) (test ksde=750) 0.4 gm/dL Reference Range: No Normals Assay performance has not been validated for this type of specimen.BASIC METABOLIC [id number] 10:31:00 Test Item Value Reference Range Comments SODIUM (BEAKER) (test 125 meq/L 136-145 rdyp=127) POTASSIUM (BEAKER) (test 4.5 meq/L 3.5-5.1 rwdy=714) CHLORIDE (BEAKER) (test 98 meq/L 98-107 ghvw=850) CO2 (BEAKER) (test 20 meq/L 22-29 jsgr=032) BLOOD UREA NITROGEN 22 mg/dL 7-21 (BEAKER) (test rqop=281) CREATININE (BEAKER) (test 1.45 mg/dL 0.57-1.25 gmjm=199) GLUCOSE RANDOM (BEAKER) 87 mg/dL 70-105 (test jqde=442) CALCIUM (BEAKER) (test 8.6 mg/dL 8.4-10.2 rghe=881) EGFR (BEAKER) (test 51 mL/min/1.73 sq m ESTIMATED GFR IS NOT efhh=8796) ACCURATE CREATININE CLEARANCE IN PREDICTING GLOMERULAR FILTRATION RATE. ESTIMATED GFR IS NOT APPLICABLE FOR DIALYSIS PATIENTS. Specimen slightly ictericHEPATIC FUNCTION [id number] 10:31:00 Test Item Value Reference Range Comments TOTAL PROTEIN (BEAKER) (test klxs=514) 5.8 gm/dL 6.0-8.3 ALBUMIN (BEAKER) (test vnok=2710) 2.4 g/dL 3.5-5.0 BILIRUBIN TOTAL (BEAKER) (test qoyo=369) 4.1 mg/dL 0.2-1.2 BILIRUBIN DIRECT (BEAKER) (test gyzx=395) 3.1 mg/dL 0.1-0.5 ALKALINE PHOSPHATASE (BEAKER) (test txor=593) 126 U/L 40-150 AST (SGOT) (BEAKER) (test fzzk=189) 28 U/L 5-34 ALT (SGPT) (BEAKER) (test mkgs=803) 13 U/L 6-55 Specimen slightly ictericCBC W/PLT COUNT & AUTO [id number] 10:09 :00 Test Item Value Reference Range Comments WHITE BLOOD CELL COUNT (BEAKER) (test zdak=787) 5.5 K/ L 3.5-10.5 RED BLOOD CELL COUNT (BEAKER) (test suag=815) 2.56 M/ L 4.63-6.08 HEMOGLOBIN (BEAKER) (test wzfp=263) 8.1 GM/DL 13.7-17.5 HEMATOCRIT (BEAKER) (test lsbg=449) 24.2 % 40.1-51.0 MEAN CORPUSCULAR VOLUME (BEAKER) (test lwiz=641) 94.5 fL 79.0-92.2 MEAN CORPUSCULAR HEMOGLOBIN (BEAKER) (test 31.6 pg 25.7-32.2 agar=481) MEAN CORPUSCULAR HEMOGLOBIN CONC (BEAKER) (test 33.5 GM/DL 32.3-36.5 vljc=213) RED CELL DISTRIBUTION WIDTH (BEAKER) (test 18.6 % 11.6-14.4 gagn=041) PLATELET COUNT (BEAKER) (test xztv=539) 86 K/CU MM 150-450 MEAN PLATELET VOLUME (BEAKER) (test kppv=997) 9.7 fL 9.4-12.4 NUCLEATED RED BLOOD CELLS (BEAKER) (test 0 /100 WBC 0-0 tdjp=334) NEUTROPHILS RELATIVE PERCENT (BEAKER) (test 65 % yylz=932) LYMPHOCYTES RELATIVE PERCENT (BEAKER) (test 13 % cdpt=372) MONOCYTES RELATIVE PERCENT (BEAKER) (test 14 % uyvo=796) EOSINOPHILS RELATIVE PERCENT (BEAKER) (test 6 % xrzr=664) BASOPHILS RELATIVE PERCENT (BEAKER) (test 0 % pgxk=456) NEUTROPHILS ABSOLUTE COUNT (BEAKER) (test 3.59 K/ L 1.78-5.38 jsos=808) LYMPHOCYTES ABSOLUTE COUNT (BEAKER) (test 0.73 K/ L 1.32-3.57 fkip=395) MONOCYTES ABSOLUTE COUNT (BEAKER) (test gthq=393) 0.76 K/ L 0.30-0.82 EOSINOPHILS ABSOLUTE COUNT (BEAKER) (test 0.33 K/ L 0.04-0.54 xphg=157) BASOPHILS ABSOLUTE COUNT (BEAKER) (test mhym=284) 0.02 K/ L 0.01-0.08 IMMATURE GRANULOCYTES-RELATIVE PERCENT (BEAKER) 1 % 0-1 (test ovkj=1853) PROTHROMBIN [id number] 07:51:00 Test Item Value Reference Range Comments PROTIME (BEAKER) (test aimz=974) 23.8 seconds 11.7-14.7 INR (BEAKER) (test wcuy=931) 2.1 <=5.9 RECOMMENDED COUMADIN/WARFARIN INR THERAPY RANGESSTANDARD DOSE: 2.0 - 3.0 Includes: PROPHYLAXIS forvenous thrombosis, systemic embolization; TREATMENT for venous thrombosis and/or pulmonary embolus.HIGH RISK: Target INR is 2.5-3.5 for patients with mechanical heart valves.BLOOD [id number] 05:02:00 Test Item Value Reference Range Comments CULTURE (BEAKER) (test gksu=1006) No growth in 5 days BLOOD [id number] 05:02:00 Test Item Value Reference Range Comments CULTURE (BEAKER) (test pecn=3533) No growth in 5 days BODY FLUID CULTURE + GRAM [id number] 09:05:00 Test Item Value Reference Range Comments CULTURE (BEAKER) (test jbfb=2809) No growth GRAM STAIN RESULT (BEAKER) (test No White blood cells seen wyfi=7871) GRAM STAIN RESULT (BEAKER) (test No organisms seen iejr=59146) RAPID DRUG SCREEN, [id number] 23:13:00 Test Item Value Reference Range Comments BARBITURATE URINE (BEAKER) (test cuvl=508) Negative Negative BENZODIAZEPINE SCREEN URINE (BEAKER) (test Negative Negative jqgt=905) COCAINE (METAB.) SCREEN (BEAKER) (test lbeo=3353) Negative Negative METHADONE SCREEN (BEAKER) (test imuz=3790) Negative Negative OPIATE SCREEN URINE (BEAKER) (test mgrm=594) Negative Negative CANNABINOID SCREEN URINE (BEAKER) (test cwtr=742) Negative Negative AMPH/METHAMPH SCREEN (BEAKER) (test ytqm=1862) Negative Negative PHENCYCLIDINE SCREEN URINE (BEAKER) (test ozfv=783) Negative Negative OXYCODONE SCREEN URINE (BEAKER) (test bvzi=4745) Negative Negative DRUG CUTOFF CONC.Cocaine 300 ng/mL Cannabinoid 50 ng/mL Benzodiazepine 200 ng/mLBarbiturate 200 ng/ mLPhencyclidine 25 ng/mLOpiate 300 ng/mLMethadone 300 ng/mLAmphetamine/ 1000 ng/mL MethamphetamineOxycodone 300 ng/mLThis assay provides an unconfirmed qualitative test result for the clinical management of patients in emergency situations. Chain of custody not maintained. Some ytgl-muc-fndopfs medications, as well as adulterants, may cause inaccurate results. Clinical correlation should be applied. A more comprehensive drug screen or confirmation of a detected drug may be performed upon request.MR, ABDOMEN, [id number] 13:52:00FINAL REPORT MRI of the abdomen with and without contrast Reason for study: Liver protocol, cirrhosis Comparison: CT, 02/11/2017; abdominal Doppler ultrasound, 07/2017 Technique: Multisequence, multiplanar MRI of the abdomen was performed before and after intravenous gadoliniumcontrast injection. Findings: The liver is cirrhotic. No abnormally enhancing liver mass is seen. There are bandlike areas of hypervascularity which probably represent areas of altered perfusion. A tiny cyst is identified in the anterior right hepatic lobe. The portal venous system is patent. The mainportal vein measures 2.2 cm in caliber proximally. A recanalized periumbilical vein is identified. The spleen is enlarged. Ascites is noted. The kidneys enhance symmetrically. No hydronephrosis is seen. The adrenal glands and pancreas are unremarkable. The gallbladder is enlarged and contains stones. There is no bile duct dilatation. No lymphadenopathy is appreciated. The lung bases are grossly unremarkable by MRI. An area of edema is identified in the right L3 vertebral body. There is some enhancement seen postcontrast. An area of edema is also identified in the left upper sacrum. Impression 1. Cirrhosis and portal hypertension. No suspicious liver mass. 2. Areas of marrow edema in the right L3 vertebral body and left upper sacrum which are nonspecific and should be closely followed. Signed: Ten Mcgarry MDReport Verified Date/Time: 09/05/2017 13:52:35 Reading Location: [address] BodyReading Room CBC W/PLT COUNT & AUTO [id number] 05:46:00 Test Item Value Reference Range Comments WHITE BLOOD CELL COUNT (BEAKER) (test kysq=665) 4.7 K/ L 3.5-10.5 RED BLOOD CELL COUNT (BEAKER) (test dnlg=925) 2.49 M/ L 4.63-6.08 HEMOGLOBIN (BEAKER) (test ylui=258) 7.9 GM/DL 13.7-17.5 HEMATOCRIT (BEAKER) (test gyzc=736) 22.6 % 40.1-51.0 MEAN CORPUSCULAR VOLUME (BEAKER) (test pwjy=966) 90.8 fL 79.0-92.2 MEAN CORPUSCULAR HEMOGLOBIN (BEAKER) (test 31.7 pg 25.7-32.2 pqlz=624) MEAN CORPUSCULAR HEMOGLOBIN CONC (BEAKER) (test 35.0 GM/DL 32.3-36.5 lzzm=462) RED CELL DISTRIBUTION WIDTH (BEAKER) (test 18.8 % 11.6-14.4 ptai=399) PLATELET COUNT (BEAKER) (test uobx=819) 60 K/CU MM 150-450 MEAN PLATELET VOLUME (BEAKER) (test tmnn=836) 9.2 fL 9.4-12.4 NUCLEATED RED BLOOD CELLS (BEAKER) (test 0 /100 WBC 0-0 hxja=135) NEUTROPHILS RELATIVE PERCENT (BEAKER) (test 65 % bsbv=441) LYMPHOCYTES RELATIVE PERCENT (BEAKER) (test 13 % cdue=055) MONOCYTES RELATIVE PERCENT (BEAKER) (test 15 % xjpc=656) EOSINOPHILS RELATIVE PERCENT (BEAKER) (test 6 % kfgs=292) BASOPHILS RELATIVE PERCENT (BEAKER) (test 0 % lhjp=495) NEUTROPHILS ABSOLUTE COUNT (BEAKER) (test 3.05 K/ L 1.78-5.38 aiif=903) LYMPHOCYTES ABSOLUTE COUNT (BEAKER) (test 0.62 K/ L 1.32-3.57 bvlu=785) MONOCYTES ABSOLUTE COUNT (BEAKER) (test wvoy=964) 0.68 K/ L 0.30-0.82 EOSINOPHILS ABSOLUTE COUNT (BEAKER) (test 0.28 K/ L 0.04-0.54 byjk=263) BASOPHILS ABSOLUTE COUNT (BEAKER) (test lzly=805) 0.02 K/ L 0.01-0.08 IMMATURE GRANULOCYTES-RELATIVE PERCENT (BEAKER) 1 % 0-1 (test hxke=1684) BASIC METABOLIC [id number] 05:44:00 Test Item Value Reference Range Comments SODIUM (BEAKER) (test 127 meq/L 136-145 amev=270) POTASSIUM (BEAKER) (test 4.5 meq/L 3.5-5.1 uysr=743) CHLORIDE (BEAKER) (test 101 meq/L 98-107 univ=820) CO2 (BEAKER) (test 19 meq/L 22-29 kdod=630) BLOOD UREA NITROGEN 17 mg/dL 7-21 (BEAKER) (test uxfc=016) CREATININE (BEAKER) (test 0.91 mg/dL 0.57-1.25 kxxp=070) GLUCOSE RANDOM (BEAKER) 107 mg/dL 70-105 (test qmwi=044) CALCIUM (BEAKER) (test 9.4 mg/dL 8.4-10.2 xzyx=627) EGFR (BEAKER) (test 87 mL/min/1.73 sq m ESTIMATED GFR IS NOT janx=3913) ACCURATE CREATININE CLEARANCE IN PREDICTING GLOMERULAR FILTRATION RATE. ESTIMATED GFR IS NOT APPLICABLE FOR DIALYSIS PATIENTS. Specimen moderately ictericHEPATIC FUNCTION [id number] 05:44:00 Test Item Value Reference Range Comments TOTAL PROTEIN (BEAKER) (test xzkh=268) 5.6 gm/dL 6.0-8.3 ALBUMIN (BEAKER) (test lreu=8084) 3.3 g/dL 3.5-5.0 BILIRUBIN TOTAL (BEAKER) (test gfdw=400) 10.3 mg/dL 0.2-1.2 BILIRUBIN DIRECT (BEAKER) (test fsxb=742) 6.8 mg/dL 0.1-0.5 ALKALINE PHOSPHATASE (BEAKER) (test dixn=389) 103 U/L 40-150 AST (SGOT) (BEAKER) (test ncku=135) 17 U/L 5-34 ALT (SGPT) (BEAKER) (test bhiz=641) 8 U/L 6-55 Specimen moderately ictericPT/[id number] 05:31:00 Test Item Value Reference Range Comments PROTIME (BEAKER) (test kisa=603) 25.6 seconds 11.7-14.7 INR (BEAKER) (test rakv=095) 2.3 <=5.9 PARTIAL THROMBOPLASTIN TIME (BEAKER) (test 51.6 seconds 22.5-36.0 aofe=644) RECOMMENDED COUMADIN/WARFARIN INR THERAPY RANGESSTANDARD DOSE: 2.0 - 3.0 Includes: PROPHYLAXIS forvenous thrombosis, systemic embolization; TREATMENT for venous thrombosis and/or pulmonary embolus.HIGH RISK: Target INR is 2.5-3.5 for patients with mechanical heart valves.PROTHROMBIN TIME/[id number] 05:30: 00 Test Item Value Reference Range Comments PROTIME (BEAKER) (test bems=291) 25.6 seconds 11.7-14.7 INR (BEAKER) (test askb=191) 2.3 <=5.9 RECOMMENDED COUMADIN/WARFARIN INR THERAPY RANGESSTANDARD DOSE: 2.0 - 3.0 Includes: PROPHYLAXIS forvenous thrombosis, systemic embolization; TREATMENT for venous thrombosis and/or pulmonary embolus.HIGH RISK: Target INR is 2.5-3.5 for patients with mechanical heart valves.BODY FLUID CELL COUNT WITH [id number] 19:30:00 Test Item Value Reference Range Comments APPEARANCE FLUID (BEAKER) (test kdtj=192) Slightly Hazy Clear COLOR FLUID (BEAKER) (test vwiy=409) Yellow Colorless, Straw RBC FLUID (BEAKER) (test mzcd=554) 100 /cu mm <=1 ADJUSTED WBC FLUID (BEAKER) (test kfky=8925) 36 /cu mm <=5 LINING CELLS (BEAKER) (test jbqj=0557) 4 /cu mm <=1 NEUTROPHILS FLUID (BEAKER) (test hoqj=9383) 0 % LYMPHS FLUID (BEAKER) (test qllt=578) 20 % MONO/MACROPHAGE FLUID (BEAKER) (test 80 % sagr=004) EOSINOPHILS FLUID (BEAKER) (test uibn=446) 0 % BASO FLUID (BEAKER) (test kdvq=119) 0 % CONTAINER BODY FLUID (BEAKER) (test EDTA Tube srer=0725) U/S, [id number] 16:21:00Reason for exam:->ascitesShould this be performed at the bedside?->NoFINAL REPORT PROCEDURE: Ultrasound-guided paracentesis. INDICATION: 52-year-old man with ascites. DESCRIPTION: After obtaining informed written consent, ultrasound scan of the abdomen identified ascites in the right lower quadrant. The overlying skin was prepped and draped in the usual, sterile fashion and local 1% lidocaine anesthesia was administered. A 5 Swedish catheter was advanced into the peritoneal cavity and 13,200 cc of cloudy yellow fluid was removed. The catheter was removed without immediate complication. Samples were sent for analysis. IMPRESSION:Uncomplicated ultrasound-guided paracentesis with 13,200 cc fluid removed. Signed: Candice Mckeon Verified Date/Time: 2016 16:21:22 Reading Location: [address] Ultrasound Reading Room [facility] METABOLIC [id number] 11:07:00 Test Item Value Reference Range Comments SODIUM (BEAKER) (test 127 meq/L 136-145 gaxi=562) POTASSIUM (BEAKER) (test 4.1 meq/L 3.5-5.1 zpjj=727) CHLORIDE (BEAKER) (test 101 meq/L 98-107 sylo=740) CO2 (BEAKER) (test 23 meq/L 22-29 shrg=678) BLOOD UREA NITROGEN 17 mg/dL 7-21 (BEAKER) (test ijib=781) CREATININE (BEAKER) (test 1.06 mg/dL 0.57-1.25 xdyl=239) GLUCOSE RANDOM (BEAKER) 104 mg/dL 70-105 (test tpsa=598) CALCIUM (BEAKER) (test 8.9 mg/dL 8.4-10.2 wgjy=007) EGFR (BEAKER) (test 73 mL/min/1.73 sq m ESTIMATED GFR IS NOT cnor=4309) ACCURATE CREATININE CLEARANCE IN PREDICTING GLOMERULAR FILTRATION RATE. ESTIMATED GFR IS NOT APPLICABLE FOR DIALYSIS PATIENTS. Specimen markedly ictericHEPATIC FUNCTION [id number] 11:07:00 Test Item Value Reference Range Comments TOTAL PROTEIN (BEAKER) (test ekri=395) 5.4 gm/dL 6.0-8.3 ALBUMIN (BEAKER) (test wemr=2022) 2.8 g/dL 3.5-5.0 BILIRUBIN TOTAL (BEAKER) (test klgz=105) 12.7 mg/dL 0.2-1.2 BILIRUBIN DIRECT (BEAKER) (test oein=136) 7.8 mg/dL 0.1-0.5 ALKALINE PHOSPHATASE (BEAKER) (test bekq=672) 90 U/L 40-150 AST (SGOT) (BEAKER) (test hjxf=607) 22 U/L 5-34 ALT (SGPT) (BEAKER) (test ebhl=959) 11 U/L 6-55 Specimen markedly ictericPT/[id number] 11:02:00 Test Item Value Reference Range Comments PROTIME (BEAKER) (test fvhi=727) 23.4 seconds 11.7-14.7 INR (BEAKER) (test kixb=103) 2.1 <=5.9 PARTIAL THROMBOPLASTIN TIME (BEAKER) (test 48.7 seconds 22.5-36.0 iisn=913) RECOMMENDED COUMADIN/WARFARIN INR THERAPY RANGESSTANDARD DOSE: 2.0 - 3.0 Includes: PROPHYLAXIS forvenous thrombosis, systemic embolization; TREATMENT for venous thrombosis and/or pulmonary embolus.HIGH RISK: Target INR is 2.5-3.5 for patients with mechanical heart valves.PROTHROMBIN [id number] 11:01: 00 Test Item Value Reference Range Comments PROTIME (BEAKER) (test tzll=971) 23.4 seconds 11.7-14.7 INR (BEAKER) (test ydjq=203) 2.1 <=5.9 RECOMMENDED COUMADIN/WARFARIN INR THERAPY RANGESSTANDARD DOSE: 2.0 - 3.0 Includes: PROPHYLAXIS forvenous thrombosis, systemic embolization; TREATMENT for venous thrombosis and/or pulmonary embolus.HIGH RISK: Target INR is 2.5-3.5 for patients with mechanical heart valves.CBC W/PLT COUNT & AUTO [id number] 10:56:00 Test Item Value Reference Range Comments WHITE BLOOD CELL COUNT (BEAKER) (test xvmi=955) 4.4 K/ L 3.5-10.5 RED BLOOD CELL COUNT (BEAKER) (test nher=614) 2.48 M/ L 4.63-6.08 HEMOGLOBIN (BEAKER) (test xsvk=055) 7.8 GM/DL 13.7-17.5 HEMATOCRIT (BEAKER) (test sijq=008) 22.7 % 40.1-51.0 MEAN CORPUSCULAR VOLUME (BEAKER) (test bcue=212) 91.5 fL 79.0-92.2 MEAN CORPUSCULAR HEMOGLOBIN (BEAKER) (test 31.5 pg 25.7-32.2 jmxr=951) MEAN CORPUSCULAR HEMOGLOBIN CONC (BEAKER) (test 34.4 GM/DL 32.3-36.5 jtqq=877) RED CELL DISTRIBUTION WIDTH (BEAKER) (test 18.6 % 11.6-14.4 znoe=621) PLATELET COUNT (BEAKER) (test bwdu=629) 60 K/CU MM 150-450 MEAN PLATELET VOLUME (BEAKER) (test mnzc=507) 8.8 fL 9.4-12.4 NUCLEATED RED BLOOD CELLS (BEAKER) (test 0 /100 WBC 0-0 uuzf=937) NEUTROPHILS RELATIVE PERCENT (BEAKER) (test 61 % nsru=117) LYMPHOCYTES RELATIVE PERCENT (BEAKER) (test 9 % wxbh=776) MONOCYTES RELATIVE PERCENT (BEAKER) (test 21 % jior=459) EOSINOPHILS RELATIVE PERCENT (BEAKER) (test 8 % maux=175) BASOPHILS RELATIVE PERCENT (BEAKER) (test 1 % yzpn=469) NEUTROPHILS ABSOLUTE COUNT (BEAKER) (test 2.68 K/ L 1.78-5.38 hgtu=393) LYMPHOCYTES ABSOLUTE COUNT (BEAKER) (test 0.38 K/ L 1.32-3.57 cxan=983) MONOCYTES ABSOLUTE COUNT (BEAKER) (test ghjs=563) 0.94 K/ L 0.30-0.82 EOSINOPHILS ABSOLUTE COUNT (BEAKER) (test 0.33 K/ L 0.04-0.54 virb=611) BASOPHILS ABSOLUTE COUNT (BEAKER) (test rzjg=770) 0.02 K/ L 0.01-0.08 IMMATURE GRANULOCYTES-RELATIVE PERCENT (BEAKER) 1 % 0-1 (test wgqb=8492) URINALYSIS W/ [id number] 06:18:00 Test Item Value Reference Range Comments COLOR (BEAKER) (test lvrm=153) Dark Yellow CLARITY (BEAKER) (test cgea=478) Clear SPECIFIC GRAVITY UA (BEAKER) (test fxnp=262) 1.008 1.001-1.035 PH UA (BEAKER) (test tghz=843) 6.0 5.0-8.0 PROTEIN UA (BEAKER) (test dikc=365) Negative Negative GLUCOSE UA (BEAKER) (test ovix=742) Negative Negative KETONES UA (BEAKER) (test xdpm=541) Negative Negative BILIRUBIN UA (BEAKER) (test amhc=683) Positive Negative BLOOD UA (BEAKER) (test lijl=963) Moderate Negative NITRITE UA (BEAKER) (test xdop=513) Negative Negative LEUKOCYTE ESTERASE UA (BEAKER) (test dzye=644) Negative Negative UROBILINOGEN UA (BEAKER) (test jfmx=907) 0.2 mg/dL 0.2-1.0 RBC UA (BEAKER) (test yirt=023) 80 /HPF WBC UA (BEAKER) (test zqpb=702) 10 /HPF HYALINE CASTS (BEAKER) (test bdcn=616) 5 /LPF AMORPHOUS CRYSTALS (BEAKER) (test pzsc=4830) Rare SOURCE(BEAKER) (test wilu=2136) CBC W/PLT COUNT & AUTO [id number] 00:00:00 Test Item Value Reference Range Comments WHITE BLOOD CELL COUNT (BEAKER) (test uyqj=777) 3.7 K/ L 3.5-10.5 RED BLOOD CELL COUNT (BEAKER) (test kxrl=179) 2.20 M/ L 4.63-6.08 HEMOGLOBIN (BEAKER) (test jlbg=265) 7.0 GM/DL 13.7-17.5 HEMATOCRIT (BEAKER) (test xjkn=567) 20.2 % 40.1-51.0 MEAN CORPUSCULAR VOLUME (BEAKER) (test ehzd=619) 91.8 fL 79.0-92.2 MEAN CORPUSCULAR HEMOGLOBIN (BEAKER) (test 31.8 pg 25.7-32.2 jukr=262) MEAN CORPUSCULAR HEMOGLOBIN CONC (BEAKER) (test 34.7 GM/DL 32.3-36.5 vpta=517) RED CELL DISTRIBUTION WIDTH (BEAKER) (test 19.3 % 11.6-14.4 dkir=111) PLATELET COUNT (BEAKER) (test bkpk=712) 63 K/CU MM 150-450 MEAN PLATELET VOLUME (BEAKER) (test imwp=599) 9.1 fL 9.4-12.4 NUCLEATED RED BLOOD CELLS (BEAKER) (test 0 /100 WBC 0-0 trqs=196) NEUTROPHILS RELATIVE PERCENT (BEAKER) (test 62 % jgsd=114) LYMPHOCYTES RELATIVE PERCENT (BEAKER) (test 11 % wzsn=278) MONOCYTES RELATIVE PERCENT (BEAKER) (test 19 % ozej=334) EOSINOPHILS RELATIVE PERCENT (BEAKER) (test 7 % avlw=003) BASOPHILS RELATIVE PERCENT (BEAKER) (test 1 % adzc=790) NEUTROPHILS ABSOLUTE COUNT (BEAKER) (test 2.29 K/ L 1.78-5.38 qabh=851) LYMPHOCYTES ABSOLUTE COUNT (BEAKER) (test 0.39 K/ L 1.32-3.57 ulmk=259) MONOCYTES ABSOLUTE COUNT (BEAKER) (test maqa=552) 0.71 K/ L 0.30-0.82 EOSINOPHILS ABSOLUTE COUNT (BEAKER) (test 0.27 K/ L 0.04-0.54 igvz=430) BASOPHILS ABSOLUTE COUNT (BEAKER) (test skzu=041) 0.02 K/ L 0.01-0.08 IMMATURE GRANULOCYTES-RELATIVE PERCENT (BEAKER) 1 % 0-1 (test jtsf=9467) PROTHROMBIN [id number] 22:52:00 Test Item Value Reference Range Comments PROTIME (BEAKER) (test fafr=688) 25.6 seconds 11.7-14.7 INR (BEAKER) (test rhqt=176) 2.3 <=5.9 RECOMMENDED COUMADIN/WARFARIN INR THERAPY RANGESSTANDARD DOSE: 2.0 - 3.0 Includes: PROPHYLAXIS forvenous thrombosis, systemic embolization; TREATMENT for venous thrombosis and/or pulmonary embolus.HIGH RISK: Target INR is 2.5-3.5 for patients with mechanical heart valves.[id number] 22:52:00 Test Item Value Reference Range Comments MAGNESIUM (BEAKER) (test ztju=640) 1.3 mg/dL 1.6-2.6 BASIC METABOLIC [id number] 22:52:00 Test Item Value Reference Range Comments SODIUM (BEAKER) (test 124 meq/L 136-145 dvxq=130) POTASSIUM (BEAKER) (test 4.1 meq/L 3.5-5.1 haex=127) CHLORIDE (BEAKER) (test 99 meq/L 98-107 gure=431) CO2 (BEAKER) (test 18 meq/L 22-29 dmsn=375) BLOOD UREA NITROGEN 16 mg/dL 7-21 (BEAKER) (test grvj=415) CREATININE (BEAKER) (test 0.97 mg/dL 0.57-1.25 gaex=450) GLUCOSE RANDOM (BEAKER) 99 mg/dL 70-105 (test ezlu=204) CALCIUM (BEAKER) (test 8.7 mg/dL 8.4-10.2 yyto=840) EGFR (BEAKER) (test 81 mL/min/1.73 sq m ESTIMATED GFR IS NOT lqdm=0458) ACCURATE CREATININE CLEARANCE IN PREDICTING GLOMERULAR FILTRATION RATE. ESTIMATED GFR IS NOT APPLICABLE FOR DIALYSIS PATIENTS. Specimen markedly ictericHEPATIC FUNCTION [id number] 22:52:00 Test Item Value Reference Range Comments TOTAL PROTEIN (BEAKER) (test fspo=240) 5.3 gm/dL 6.0-8.3 ALBUMIN (BEAKER) (test idef=6426) 2.8 g/dL 3.5-5.0 BILIRUBIN TOTAL (BEAKER) (test fbie=186) 12.7 mg/dL 0.2-1.2 BILIRUBIN DIRECT (BEAKER) (test wmed=012) 7.6 mg/dL 0.1-0.5 ALKALINE PHOSPHATASE (BEAKER) (test rdht=939) 93 U/L 40-150 AST (SGOT) (BEAKER) (test zmrf=156) 21 U/L 5-34 ALT (SGPT) (BEAKER) (test ebon=945) 9 U/L 6-55 Specimen markedly ictericALPHA FETOPROTEIN (AFP), TUMOR [id number] 16:39: 00 Test Item Value Reference Range Comments ALPHA-FETOPROTEIN (BEAKER) (test gimz=7608) 2.5 ng/mL <10.0 BASIC METABOLIC [id number] 15:53:00 Test Item Value Reference Range Comments SODIUM (BEAKER) (test 126 meq/L 136-145 fwaf=680) POTASSIUM (BEAKER) (test 5.1 meq/L 3.5-5.1 whms=710) CHLORIDE (BEAKER) (test 101 meq/L 98-107 bmsh=239) CO2 (BEAKER) (test 19 meq/L 22-29 jauw=486) BLOOD UREA NITROGEN 14 mg/dL 7-21 (BEAKER) (test qeej=625) CREATININE (BEAKER) (test 1.01 mg/dL 0.57-1.25 nrje=604) GLUCOSE RANDOM (BEAKER) 104 mg/dL 70-105 (test jlrb=203) CALCIUM (BEAKER) (test 9.0 mg/dL 8.4-10.2 ueve=486) EGFR (BEAKER) (test 78 mL/min/1.73 sq m ESTIMATED GFR IS NOT ycha=7244) ACCURATE CREATININE CLEARANCE IN PREDICTING GLOMERULAR FILTRATION RATE. ESTIMATED GFR IS NOT APPLICABLE FOR DIALYSIS PATIENTS. Specimen moderately ictericHEPATIC FUNCTION [id number] 15:53:00 Test Item Value Reference Range Comments TOTAL PROTEIN (BEAKER) (test xwmw=434) 6.1 gm/dL 6.0-8.3 ALBUMIN (BEAKER) (test mypt=7469) 2.6 g/dL 3.5-5.0 BILIRUBIN TOTAL (BEAKER) (test kohx=186) 10.4 mg/dL 0.2-1.2 BILIRUBIN DIRECT (BEAKER) (test sowe=262) 7.5 mg/dL 0.1-0.5 ALKALINE PHOSPHATASE (BEAKER) (test mkpc=705) 124 U/L 40-150 AST (SGOT) (BEAKER) (test beat=305) 29 U/L 5-34 ALT (SGPT) (BEAKER) (test gixe=391) 12 U/L 6-55 Specimen moderately ictericGAMMA GLUTAMYL TRANSFERASE (GGT)[id number] 15:53:00 Test Item Value Reference Range Comments GAMMA GLUTAMYL TRANSFERASE (BEAKER) (test oxty=264) 17 U/L 9-64 Specimen moderately ictericPROTHROMBIN [id number] 15:40:00 Test Item Value Reference Range Comments PROTIME (BEAKER) (test ixji=473) 22.6 seconds 11.7-14.7 INR (BEAKER) (test utbz=555) 2.0 <=5.9 RECOMMENDED COUMADIN/WARFARIN INR THERAPY RANGESSTANDARD DOSE: 2.0 - 3.0 Includes: PROPHYLAXIS forvenous thrombosis, systemic embolization; TREATMENT for venous thrombosis and/or pulmonary embolus.HIGH RISK: Target INR is 2.5-3.5 for patients with mechanical heart valves.CBC W/PLT COUNT & AUTO [id number] 15:38:00 Test Item Value Reference Range Comments WHITE BLOOD CELL COUNT (BEAKER) (test xizt=921) 7.3 K/ L 3.5-10.5 RED BLOOD CELL COUNT (BEAKER) (test mjem=582) 2.78 M/ L 4.63-6.08 HEMOGLOBIN (BEAKER) (test itqa=252) 9.1 GM/DL 13.7-17.5 HEMATOCRIT (BEAKER) (test nhjq=188) 27.3 % 40.1-51.0 MEAN CORPUSCULAR VOLUME (BEAKER) (test aqhg=634) 98.2 fL 79.0-92.2 MEAN CORPUSCULAR HEMOGLOBIN (BEAKER) (test 32.7 pg 25.7-32.2 byln=101) MEAN CORPUSCULAR HEMOGLOBIN CONC (BEAKER) (test 33.3 GM/DL 32.3-36.5 ikla=174) RED CELL DISTRIBUTION WIDTH (BEAKER) (test 16.4 % 11.6-14.4 qswd=155) PLATELET COUNT (BEAKER) (test gmar=546) 71 K/CU MM 150-450 MEAN PLATELET VOLUME (BEAKER) (test byya=076) 9.1 fL 9.4-12.4 NUCLEATED RED BLOOD CELLS (BEAKER) (test 0 /100 WBC 0-0 yshr=697) NEUTROPHILS RELATIVE PERCENT (BEAKER) (test 71 % asvd=049) LYMPHOCYTES RELATIVE PERCENT (BEAKER) (test 8 % rorg=946) MONOCYTES RELATIVE PERCENT (BEAKER) (test 15 % hseh=066) EOSINOPHILS RELATIVE PERCENT (BEAKER) (test 5 % kzyy=512) BASOPHILS RELATIVE PERCENT (BEAKER) (test 0 % wwgo=071) NEUTROPHILS ABSOLUTE COUNT (BEAKER) (test 5.13 K/ L 1.78-5.38 imrz=616) LYMPHOCYTES ABSOLUTE COUNT (BEAKER) (test 0.59 K/ L 1.32-3.57 ubrh=220) MONOCYTES ABSOLUTE COUNT (BEAKER) (test jhuk=125) 1.06 K/ L 0.30-0.82 EOSINOPHILS ABSOLUTE COUNT (BEAKER) (test 0.33 K/ L 0.04-0.54 qlxg=454) BASOPHILS ABSOLUTE COUNT (BEAKER) (test ggzu=722) 0.03 K/ L 0.01-0.08 IMMATURE GRANULOCYTES-RELATIVE PERCENT (BEAKER) 2 % 0-1 (test yare=7003) FUNGUS CULTURE + [id number] 07:22:00 Test Item Value Reference Range Comments CULTURE (BEAKER) (test No fungus isolated in 28 days qmgb=4770) FUNGUS SMEAR (BEAKER) (test No fungi seen jdia=6111) HISTOPLASMA ANTIGEN, [id number] 08:01:00 Test Item Value Reference Range Comments SCAN RESULT (test ohev=[id number]) TISSUE [id number] 10:58:00 Test Item Value Reference Range Comments LAB AP CPT CODE (BEAKER) (test xmmc=5831) [id number] BLOOD [id number] 16:15:00 Test Item Value Reference Range Comments CULTURE (BEAKER) (test cfvs=1827) No growth in 5 days BLOOD [id number] 16:15:00 Test Item Value Reference Range Comments CULTURE (BEAKER) (test tnfp=3268) No growth in 5 days [id number] 06:54:00 Test Item Value Reference Range Comments PHOSPHORUS (BEAKER) (test tjfs=947) 3.3 mg/dL 2.3-4.7 [id number] 06:54:00 Test Item Value Reference Range Comments MAGNESIUM (BEAKER) (test zyoh=436) 1.2 mg/dL 1.6-2.6 BASIC METABOLIC [id number] 06:54:00 Test Item Value Reference Range Comments SODIUM (BEAKER) (test 133 meq/L 136-145 uuoj=963) POTASSIUM (BEAKER) (test 3.6 meq/L 3.5-5.1 jagw=980) CHLORIDE (BEAKER) (test 108 meq/L 98-107 vlbj=129) CO2 (BEAKER) (test 17 meq/L 22-29 kjkf=443) BLOOD UREA NITROGEN 13 mg/dL 7-21 (BEAKER) (test fkhd=236) CREATININE (BEAKER) (test 1.16 mg/dL 0.57-1.25 bgpb=545) GLUCOSE RANDOM (BEAKER) 82 mg/dL 70-105 (test ntpc=108) CALCIUM (BEAKER) (test 8.0 mg/dL 8.4-10.2 ijxw=731) EGFR (BEAKER) (test 66 mL/min/1.73 sq m ESTIMATED GFR IS NOT kvpj=7154) ACCURATE CREATININE CLEARANCE IN PREDICTING GLOMERULAR FILTRATION RATE. ESTIMATED GFR IS NOT APPLICABLE FOR DIALYSIS PATIENTS. Specimen moderately ictericHEPATIC FUNCTION [id number] 06:54:00 Test Item Value Reference Range Comments TOTAL PROTEIN (BEAKER) (test wbyc=636) 5.7 gm/dL 6.0-8.3 ALBUMIN (BEAKER) (test uieq=2408) 3.1 g/dL 3.5-5.0 BILIRUBIN TOTAL (BEAKER) (test mlcq=231) 5.2 mg/dL 0.2-1.2 BILIRUBIN DIRECT (BEAKER) (test gbds=855) 2.6 mg/dL 0.1-0.5 ALKALINE PHOSPHATASE (BEAKER) (test eyzz=115) 55 U/L 40-150 AST (SGOT) (BEAKER) (test monh=134) 32 U/L 5-34 ALT (SGPT) (BEAKER) (test vyag=475) 9 U/L 6-55 Specimen moderately ictericCALCIUM, [id number] 06:30:00 Test Item Value Reference Range Comments CALCIUM IONIZED (BEAKER) (test nfmw=456) 1.00 mmol/L 1.12-1.27 PH, BLOOD (BEAKER) (test gycw=1343) 7.52 CBC W/PLT COUNT & AUTO [id number] 06:17:00 Test Item Value Reference Range Comments WHITE BLOOD CELL COUNT (BEAKER) (test vcon=258) 4.7 K/ L 4.0-10.0 RED BLOOD CELL COUNT (BEAKER) (test sqfc=059) 2.05 M/ L 4.20-5.80 HEMOGLOBIN (BEAKER) (test gllz=414) 7.1 GM/DL 13.0-16.8 HEMATOCRIT (BEAKER) (test ifow=529) 21.1 % 40.0-50.0 MEAN CORPUSCULAR VOLUME (BEAKER) (test temf=664) 103.0 fL 82.0-98.0 MEAN CORPUSCULAR HEMOGLOBIN (BEAKER) (test 34.8 pg 27.0-33.0 tbit=413) MEAN CORPUSCULAR HEMOGLOBIN CONC (BEAKER) (test 33.8 GM/DL 32.0-36.0 dylf=119) RED CELL DISTRIBUTION WIDTH (BEAKER) (test 13.9 % 10.3-14.2 eidr=381) PLATELET COUNT (BEAKER) (test ourr=566) 71 K/CU MM 150-430 MEAN PLATELET VOLUME (BEAKER) (test thrg=724) 6.6 fL 6.5-10.5 NUCLEATED RED BLOOD CELLS (BEAKER) (test 0 /100 WBC 0-0 inbr=318) NEUTROPHILS RELATIVE PERCENT (BEAKER) (test 68 % rttd=611) LYMPHOCYTES RELATIVE PERCENT (BEAKER) (test 16 % ravp=750) MONOCYTES RELATIVE PERCENT (BEAKER) (test 12 % kbix=001) EOSINOPHILS RELATIVE PERCENT (BEAKER) (test 4 % gurf=965) BASOPHILS RELATIVE PERCENT (BEAKER) (test 1 % gggr=897) NEUTROPHILS ABSOLUTE COUNT (BEAKER) (test 3.21 K/ L 1.80-8.00 gdyo=448) LYMPHOCYTES ABSOLUTE COUNT (BEAKER) (test 0.75 K/ L 1.48-4.50 zdlg=232) MONOCYTES ABSOLUTE COUNT (BEAKER) (test knci=892) 0.57 K/ L 0.00-1.30 EOSINOPHILS ABSOLUTE COUNT (BEAKER) (test 0.19 K/ L 0.00-0.50 fwhz=473) BASOPHILS ABSOLUTE COUNT (BEAKER) (test hfkm=571) 0.03 K/ L 0.00-0.20 0.00PROTHROMBIN [id number] 05:56:00 Test Item Value Reference Range Comments PROTIME (BEAKER) (test fvkg=065) 26.4 seconds 11.7-14.7 INR (BEAKER) (test pmjp=743) 2.4 <=5.9 RECOMMENDED COUMADIN/WARFARIN INR THERAPY RANGESSTANDARD DOSE: 2.0 - 3.0 Includes: PROPHYLAXIS forvenous thrombosis, systemic embolization; TREATMENT for venous thrombosis and/or pulmonary embolus.HIGH RISK: Target INR is 2.5-3.5 for patients with mechanical heart valves.BASIC METABOLIC [id number] 04:44: 00 Test Item Value Reference Range Comments SODIUM (BEAKER) (test 134 meq/L 136-145 dlas=005) POTASSIUM (BEAKER) (test 3.6 meq/L 3.5-5.1 bvhd=301) CHLORIDE (BEAKER) (test 108 meq/L 98-107 lrvv=080) CO2 (BEAKER) (test 19 meq/L 22-29 ryik=945) BLOOD UREA NITROGEN 12 mg/dL 7-21 (BEAKER) (test zqvr=381) CREATININE (BEAKER) (test 1.32 mg/dL 0.57-1.25 eban=245) GLUCOSE RANDOM (BEAKER) 82 mg/dL 70-105 (test yqys=219) CALCIUM (BEAKER) (test 7.9 mg/dL 8.4-10.2 sbcx=411) EGFR (BEAKER) (test 57 mL/min/1.73 sq m ESTIMATED GFR IS NOT pneg=8589) ACCURATE CREATININE CLEARANCE IN PREDICTING GLOMERULAR FILTRATION RATE. ESTIMATED GFR IS NOT APPLICABLE FOR DIALYSIS PATIENTS. Specimen moderately ictericHEPATIC FUNCTION [id number] 04:42:00 Test Item Value Reference Range Comments TOTAL PROTEIN (BEAKER) (test nqtr=611) 5.8 gm/dL 6.0-8.3 ALBUMIN (BEAKER) (test vplo=9680) 3.1 g/dL 3.5-5.0 BILIRUBIN TOTAL (BEAKER) (test oiew=718) 5.1 mg/dL 0.2-1.2 BILIRUBIN DIRECT (BEAKER) (test tkls=709) 2.7 mg/dL 0.1-0.5 ALKALINE PHOSPHATASE (BEAKER) (test exdb=101) 51 U/L 40-150 AST (SGOT) (BEAKER) (test pxqo=596) 27 U/L 5-34 ALT (SGPT) (BEAKER) (test inhz=638) 7 U/L 6-55 Specimen moderately ictericCBC W/PLT COUNT & AUTO [id number] 04: 35:00 Test Item Value Reference Range Comments WHITE BLOOD CELL COUNT (BEAKER) (test kzts=877) 4.6 K/ L 4.0-10.0 RED BLOOD CELL COUNT (BEAKER) (test nobx=302) 2.06 M/ L 4.20-5.80 HEMOGLOBIN (BEAKER) (test bhsc=808) 7.2 GM/DL 13.0-16.8 HEMATOCRIT (BEAKER) (test jqah=072) 21.5 % 40.0-50.0 MEAN CORPUSCULAR VOLUME (BEAKER) (test czol=811) 104.0 fL 82.0-98.0 MEAN CORPUSCULAR HEMOGLOBIN (BEAKER) (test 35.0 pg 27.0-33.0 glbd=616) MEAN CORPUSCULAR HEMOGLOBIN CONC (BEAKER) (test 33.6 GM/DL 32.0-36.0 oclu=563) RED CELL DISTRIBUTION WIDTH (BEAKER) (test 13.4 % 10.3-14.2 uwtc=063) PLATELET COUNT (BEAKER) (test ekjw=686) 76 K/CU MM 150-430 MEAN PLATELET VOLUME (BEAKER) (test uldf=653) 6.5 fL 6.5-10.5 NUCLEATED RED BLOOD CELLS (BEAKER) (test 0 /100 WBC 0-0 vtkd=702) NEUTROPHILS RELATIVE PERCENT (BEAKER) (test 64 % vhma=367) LYMPHOCYTES RELATIVE PERCENT (BEAKER) (test 16 % txpb=855) MONOCYTES RELATIVE PERCENT (BEAKER) (test 16 % fcpv=768) EOSINOPHILS RELATIVE PERCENT (BEAKER) (test 4 % mkhk=338) BASOPHILS RELATIVE PERCENT (BEAKER) (test 1 % gwed=631) NEUTROPHILS ABSOLUTE COUNT (BEAKER) (test 2.89 K/ L 1.80-8.00 wnes=165) LYMPHOCYTES ABSOLUTE COUNT (BEAKER) (test 0.72 K/ L 1.48-4.50 fukr=607) MONOCYTES ABSOLUTE COUNT (BEAKER) (test jekn=442) 0.71 K/ L 0.00-1.30 EOSINOPHILS ABSOLUTE COUNT (BEAKER) (test 0.20 K/ L 0.00-0.50 owpk=716) BASOPHILS ABSOLUTE COUNT (BEAKER) (test xiwf=147) 0.03 K/ L 0.00-0.20 0.00PROTHROMBIN [id number] 04:33:00 Test Item Value Reference Range Comments PROTIME (BEAKER) (test xbox=881) 30.2 seconds 11.7-14.7 INR (BEAKER) (test ppxy=325) 2.9 <=5.9 RECOMMENDED COUMADIN/WARFARIN INR THERAPY RANGESSTANDARD DOSE: 2.0 - 3.0 Includes: PROPHYLAXIS forvenous thrombosis, systemic embolization; TREATMENT for venous thrombosis and/or pulmonary embolus.HIGH RISK: Target INR is 2.5-3.5 for patients with mechanical heart valves.VANCOMYCIN LEVEL, [id number] 17: 04:00 Test Item Value Reference Range Comments VANCOMYCIN TROUGH (BEAKER) (test kohl=938) 12.2 ug/mL 10.0-20.0 URINE [id number] 14:25:00 Test Item Value Reference Range Comments CULTURE (BEAKER) (test eqlk=4823) No growth TSH/FREE T4 IF [id number] 14:22:00 Test Item Value Reference Range Comments THYROID STIMULATING HORMONE (BEAKER) (test 3.53 uIU/mL 0.35-4.94 iqea=336) URINE [id number] 11:43:00 Test Item Value Reference Range Comments CULTURE (BEAKER) (test mkgj=3924) No growth CBC W/PLT COUNT & AUTO [id number] 07:55:00 Test Item Value Reference Range Comments WHITE BLOOD CELL COUNT (BEAKER) (test kcwj=590) 4.5 K/ L 4.0-10.0 RED BLOOD CELL COUNT (BEAKER) (test uamm=867) 2.06 M/ L 4.20-5.80 HEMOGLOBIN (BEAKER) (test dxbp=912) 7.1 GM/DL 13.0-16.8 HEMATOCRIT (BEAKER) (test gcgy=109) 21.5 % 40.0-50.0 MEAN CORPUSCULAR VOLUME (BEAKER) (test dwbv=591) 104.0 fL 82.0-98.0 MEAN CORPUSCULAR HEMOGLOBIN (BEAKER) (test 34.5 pg 27.0-33.0 ktpd=352) MEAN CORPUSCULAR HEMOGLOBIN CONC (BEAKER) (test 33.1 GM/DL 32.0-36.0 htqx=540) RED CELL DISTRIBUTION WIDTH (BEAKER) (test 13.4 % 10.3-14.2 odmz=031) PLATELET COUNT (BEAKER) (test hgth=853) 79 K/CU MM 150-430 MEAN PLATELET VOLUME (BEAKER) (test uzry=808) 6.8 fL 6.5-10.5 NUCLEATED RED BLOOD CELLS (BEAKER) (test 0 /100 WBC 0-0 wpmu=221) NEUTROPHILS RELATIVE PERCENT (BEAKER) (test 64 % agxe=872) LYMPHOCYTES RELATIVE PERCENT (BEAKER) (test 16 % dkqs=174) MONOCYTES RELATIVE PERCENT (BEAKER) (test 15 % bexb=016) EOSINOPHILS RELATIVE PERCENT (BEAKER) (test 5 % xpdy=254) BASOPHILS RELATIVE PERCENT (BEAKER) (test 0 % ckzx=449) NEUTROPHILS ABSOLUTE COUNT (BEAKER) (test 2.88 K/ L 1.80-8.00 jsjs=537) LYMPHOCYTES ABSOLUTE COUNT (BEAKER) (test 0.73 K/ L 1.48-4.50 kiqv=607) MONOCYTES ABSOLUTE COUNT (BEAKER) (test mugg=578) 0.68 K/ L 0.00-1.30 EOSINOPHILS ABSOLUTE COUNT (BEAKER) (test 0.23 K/ L 0.00-0.50 pjce=356) BASOPHILS ABSOLUTE COUNT (BEAKER) (test bwxt=336) 0.02 K/ L 0.00-0.20 0.00BASIC METABOLIC [id number] 05:58:00 Test Item Value Reference Range Comments SODIUM (BEAKER) (test 137 meq/L 136-145 fwjs=366) POTASSIUM (BEAKER) (test 3.7 meq/L 3.5-5.1 koro=889) CHLORIDE (BEAKER) (test 110 meq/L 98-107 ocfx=400) CO2 (BEAKER) (test 19 meq/L 22-29 ygsq=619) BLOOD UREA NITROGEN 12 mg/dL 7-21 (BEAKER) (test khhw=116) CREATININE (BEAKER) (test 1.29 mg/dL 0.57-1.25 ustq=450) GLUCOSE RANDOM (BEAKER) 80 mg/dL 70-105 (test bdom=114) CALCIUM (BEAKER) (test 8.1 mg/dL 8.4-10.2 czmh=180) EGFR (BEAKER) (test 59 mL/min/1.73 sq m ESTIMATED GFR IS NOT alil=1175) ACCURATE CREATININE CLEARANCE IN PREDICTING GLOMERULAR FILTRATION RATE. ESTIMATED GFR IS NOT APPLICABLE FOR DIALYSIS PATIENTS. Specimen moderately ictericHEPATIC FUNCTION [id number] 05:58:00 Test Item Value Reference Range Comments TOTAL PROTEIN (BEAKER) (test xihm=406) 5.9 gm/dL 6.0-8.3 ALBUMIN (BEAKER) (test pzqw=7880) 3.4 g/dL 3.5-5.0 BILIRUBIN TOTAL (BEAKER) (test pllr=264) 5.6 mg/dL 0.2-1.2 BILIRUBIN DIRECT (BEAKER) (test gvkv=944) 2.6 mg/dL 0.1-0.5 ALKALINE PHOSPHATASE (BEAKER) (test ddgn=586) 50 U/L 40-150 AST (SGOT) (BEAKER) (test lrzf=480) 30 U/L 5-34 ALT (SGPT) (BEAKER) (test mlrd=177) 9 U/L 6-55 Specimen moderately ictericPROTHROMBIN [id number] 05:31:00 Test Item Value Reference Range Comments PROTIME (BEAKER) (test bvik=504) 29.0 seconds 11.7-14.7 INR (BEAKER) (test slgw=110) 2.7 <=5.9 RECOMMENDED COUMADIN/WARFARIN INR THERAPY RANGESSTANDARD DOSE: 2.0 - 3.0 Includes: PROPHYLAXIS forvenous thrombosis, systemic embolization; TREATMENT for venous thrombosis and/or pulmonary embolus.HIGH RISK: Target INR is 2.5-3.5 for patients with mechanical heart valves.ANAEROBIC [id number] 05:15:00 Test Item Value Reference Range Comments CULTURE (BEAKER) (test acmm=3684) No anaerobes isolated BLOOD [id number] 00:00:00 Test Item Value Reference Range Comments CULTURE (BEAKER) (test fosv=7001) No growth in 5 days BLOOD [id number] 00:00:00 Test Item Value Reference Range Comments CULTURE (BEAKER) (test yfzw=9353) No growth in 5 days URINALYSIS W/ REFLEX URINE [id number] 08:28:00 Test Item Value Reference Range Comments COLOR (BEAKER) (test gquz=478) Yellow CLARITY (BEAKER) (test omse=897) Clear SPECIFIC GRAVITY UA (BEAKER) (test akrs=372) 1.006 1.001-1.035 PH UA (BEAKER) (test peox=589) 6.5 5.0-8.0 PROTEIN UA (BEAKER) (test iyyb=707) Negative Negative GLUCOSE UA (BEAKER) (test lclc=333) Negative Negative KETONES UA (BEAKER) (test ntsa=019) Negative Negative BILIRUBIN UA (BEAKER) (test wpsn=715) Negative Negative BLOOD UA (BEAKER) (test gqos=291) Negative Negative NITRITE UA (BEAKER) (test teol=421) Negative Negative LEUKOCYTE ESTERASE UA (BEAKER) (test amus=697) Small Negative UROBILINOGEN UA (BEAKER) (test ldil=376) 0.2 mg/dL 0.2-1.0 RBC UA (BEAKER) (test klfx=756) 1 /HPF WBC UA (BEAKER) (test mybo=721) 6 /HPF BACTERIA (BEAKER) (test hvns=097) Rare SOURCE(BEAKER) (test kayz=7823) CBC W/PLT COUNT & AUTO [id number] 07:21:00 Test Item Value Reference Range Comments WHITE BLOOD CELL COUNT (BEAKER) (test exwt=899) 5.9 K/ L 4.0-10.0 RED BLOOD CELL COUNT (BEAKER) (test pckn=205) 2.12 M/ L 4.20-5.80 HEMOGLOBIN (BEAKER) (test gwth=296) 7.3 GM/DL 13.0-16.8 HEMATOCRIT (BEAKER) (test mwvu=677) 22.2 % 40.0-50.0 MEAN CORPUSCULAR VOLUME (BEAKER) (test zvlz=745) 105.0 fL 82.0-98.0 MEAN CORPUSCULAR HEMOGLOBIN (BEAKER) (test 34.2 pg 27.0-33.0 bjzw=801) MEAN CORPUSCULAR HEMOGLOBIN CONC (BEAKER) (test 32.7 GM/DL 32.0-36.0 etjh=858) RED CELL DISTRIBUTION WIDTH (BEAKER) (test 13.1 % 10.3-14.2 lpah=623) PLATELET COUNT (BEAKER) (test imrj=532) 80 K/CU MM 150-430 MEAN PLATELET VOLUME (BEAKER) (test wtpa=575) 6.5 fL 6.5-10.5 NUCLEATED RED BLOOD CELLS (BEAKER) (test 0 /100 WBC 0-0 kmiz=854) NEUTROPHILS RELATIVE PERCENT (BEAKER) (test 67 % dnpo=765) LYMPHOCYTES RELATIVE PERCENT (BEAKER) (test 14 % lqai=059) MONOCYTES RELATIVE PERCENT (BEAKER) (test 14 % esjw=019) EOSINOPHILS RELATIVE PERCENT (BEAKER) (test 4 % vxel=719) BASOPHILS RELATIVE PERCENT (BEAKER) (test 0 % vash=832) NEUTROPHILS ABSOLUTE COUNT (BEAKER) (test 3.97 K/ L 1.80-8.00 ysdz=921) LYMPHOCYTES ABSOLUTE COUNT (BEAKER) (test 0.85 K/ L 1.48-4.50 sdif=372) MONOCYTES ABSOLUTE COUNT (BEAKER) (test ulrw=149) 0.81 K/ L 0.00-1.30 EOSINOPHILS ABSOLUTE COUNT (BEAKER) (test 0.25 K/ L 0.00-0.50 irbh=108) BASOPHILS ABSOLUTE COUNT (BEAKER) (test vkpx=540) 0.03 K/ L 0.00-0.20 [id number] 06:35:00 Test Item Value Reference Range Comments PHOSPHORUS (BEAKER) (test ykvw=375) 3.5 mg/dL 2.3-4.7 [id number] 06:35:00 Test Item Value Reference Range Comments MAGNESIUM (BEAKER) (test dbzl=998) 1.7 mg/dL 1.6-2.6 BASIC METABOLIC [id number] 06:35:00 Test Item Value Reference Range Comments SODIUM (BEAKER) (test 137 meq/L 136-145 zpak=661) POTASSIUM (BEAKER) (test 4.0 meq/L 3.5-5.1 ispt=577) CHLORIDE (BEAKER) (test 109 meq/L 98-107 jkii=292) CO2 (BEAKER) (test 20 meq/L 22-29 xbcn=381) BLOOD UREA NITROGEN 13 mg/dL 7-21 (BEAKER) (test grbk=903) CREATININE (BEAKER) (test 1.56 mg/dL 0.57-1.25 vchq=834) GLUCOSE RANDOM (BEAKER) 85 mg/dL 70-105 (test nksn=962) CALCIUM (BEAKER) (test 8.4 mg/dL 8.4-10.2 dfhy=376) EGFR (BEAKER) (test 47 mL/min/1.73 sq m ESTIMATED GFR IS NOT wveh=3607) ACCURATE CREATININE CLEARANCE IN PREDICTING GLOMERULAR FILTRATION RATE. ESTIMATED GFR IS NOT APPLICABLE FOR DIALYSIS PATIENTS. Specimen moderately ictericHEPATIC FUNCTION [id number] 06:35:00 Test Item Value Reference Range Comments TOTAL PROTEIN (BEAKER) (test yjyb=504) 6.5 gm/dL 6.0-8.3 ALBUMIN (BEAKER) (test tmrd=2261) 3.8 g/dL 3.5-5.0 BILIRUBIN TOTAL (BEAKER) (test bzjz=192) 6.1 mg/dL 0.2-1.2 BILIRUBIN DIRECT (BEAKER) (test tujl=116) 2.9 mg/dL 0.1-0.5 ALKALINE PHOSPHATASE (BEAKER) (test alnu=764) 54 U/L 40-150 AST (SGOT) (BEAKER) (test kdgo=793) 28 U/L 5-34 ALT (SGPT) (BEAKER) (test mgap=387) 7 U/L 6-55 Specimen moderately ictericPROTHROMBIN [id number] 06:06:00 Test Item Value Reference Range Comments PROTIME (BEAKER) (test knws=420) 26.1 seconds 11.7-14.7 INR (BEAKER) (test kppl=183) 2.4 <=5.9 RECOMMENDED COUMADIN/WARFARIN INR THERAPY RANGESSTANDARD DOSE: 2.0 - 3.0 Includes: PROPHYLAXIS forvenous thrombosis, systemic embolization; TREATMENT for venous thrombosis and/or pulmonary embolus.HIGH RISK: Target INR is 2.5-3.5 for patients with mechanical heart valves.CALCIUM, [id number] 06:06:00 Test Item Value Reference Range Comments CALCIUM IONIZED (BEAKER) (test bpdd=915) 1.06 mmol/L 1.12-1.27 PH, BLOOD (BEAKER) (test hfvi=6966) 7.46 SURGICALLY OBTAINED CULTURE + GRAM [id number] 23:51:00 Test Item Value Reference Range Comments CULTURE (BEAKER) (test tzhv=4563) No growth GRAM STAIN RESULT (BEAKER) (test 1+ WBCs cqwc=1434) GRAM STAIN RESULT (BEAKER) (test No organisms seen kryk=98553) BODY FLUID CULTURE + GRAM [id number] 23:42:00 Test Item Value Reference Range Comments CULTURE (BEAKER) (test bdpr=2295) No growth GRAM STAIN RESULT (BEAKER) (test 1+ WBCs pbco=7583) GRAM STAIN RESULT (BEAKER) (test No organisms seen iqfw=58792) BODY FLUID CELL COUNT WITH [id number] 19:59:00 Test Item Value Reference Range Comments APPEARANCE FLUID (BEAKER) (test bqej=564) Hazy Clear COLOR FLUID (BEAKER) (test wwmp=852) Yellow Colorless, Straw RBC FLUID (BEAKER) (test wuno=986) 2435 /cu mm <=1 ADJUSTED WBC FLUID (BEAKER) (test lttf=4980) 441 /cu mm <=5 LINING CELLS (BEAKER) (test bctx=5687) 9 /cu mm <=1 NEUTROPHILS FLUID (BEAKER) (test bakg=4303) 16 % LYMPHS FLUID (BEAKER) (test wzzd=546) 10 % MONO/MACROPHAGE FLUID (BEAKER) (test yxic=358) 74 % EOSINOPHILS FLUID (BEAKER) (test etjv=306) 0 % BASO FLUID (BEAKER) (test gvcu=754) 0 % CONTAINER BODY FLUID (BEAKER) (test rrml=5361) EDTA Tube [id number] 11:01:00 Test Item Value Reference Range Comments PROCALCITONIN (BEAKER) (test uayj=5937) 0.25 ng/mL <0.05 SEPSIS RISK (ng/mL)Low: 0.05-0.50Intermediate: 0.51-2.00High: & gt;=2.01CBC W/PLT COUNT & AUTO [id number] 08:40:00 Test Item Value Reference Range Comments WHITE BLOOD CELL COUNT (BEAKER) (test dhlv=880) 6.3 K/ L 4.0-10.0 RED BLOOD CELL COUNT (BEAKER) (test lrhx=799) 2.07 M/ L 4.20-5.80 HEMOGLOBIN (BEAKER) (test lkkc=663) 7.1 GM/DL 13.0-16.8 HEMATOCRIT (BEAKER) (test kenh=208) 21.9 % 40.0-50.0 MEAN CORPUSCULAR VOLUME (BEAKER) (test ihqi=812) 106.0 fL 82.0-98.0 MEAN CORPUSCULAR HEMOGLOBIN (BEAKER) (test 34.1 pg 27.0-33.0 ahtv=942) MEAN CORPUSCULAR HEMOGLOBIN CONC (BEAKER) (test 32.2 GM/DL 32.0-36.0 jcan=721) RED CELL DISTRIBUTION WIDTH (BEAKER) (test 13.1 % 10.3-14.2 lrjq=028) PLATELET COUNT (BEAKER) (test uxzv=932) 78 K/CU MM 150-430 MEAN PLATELET VOLUME (BEAKER) (test ocdw=798) 6.6 fL 6.5-10.5 NUCLEATED RED BLOOD CELLS (BEAKER) (test 0 /100 WBC 0-0 hofv=020) NEUTROPHILS RELATIVE PERCENT (BEAKER) (test 73 % mimf=275) LYMPHOCYTES RELATIVE PERCENT (BEAKER) (test 10 % zruh=900) MONOCYTES RELATIVE PERCENT (BEAKER) (test 13 % eire=073) EOSINOPHILS RELATIVE PERCENT (BEAKER) (test 4 % evmd=748) BASOPHILS RELATIVE PERCENT (BEAKER) (test 0 % zhif=931) NEUTROPHILS ABSOLUTE COUNT (BEAKER) (test 4.60 K/ L 1.80-8.00 dras=344) LYMPHOCYTES ABSOLUTE COUNT (BEAKER) (test 0.64 K/ L 1.48-4.50 xjzk=907) MONOCYTES ABSOLUTE COUNT (BEAKER) (test rjyh=378) 0.81 K/ L 0.00-1.30 EOSINOPHILS ABSOLUTE COUNT (BEAKER) (test 0.23 K/ L 0.00-0.50 sxhn=123) BASOPHILS ABSOLUTE COUNT (BEAKER) (test tffo=118) 0.01 K/ L 0.00-0.20 [id number] 06:50:00 Test Item Value Reference Range Comments PHOSPHORUS (BEAKER) (test kwly=491) 3.0 mg/dL 2.3-4.7 [id number] 06:50:00 Test Item Value Reference Range Comments MAGNESIUM (BEAKER) (test jqst=683) 1.9 mg/dL 1.6-2.6 BASIC METABOLIC [id number] 06:50:00 Test Item Value Reference Range Comments SODIUM (BEAKER) (test 135 meq/L 136-145 fltp=451) POTASSIUM (BEAKER) (test 4.2 meq/L 3.5-5.1 ryjp=180) CHLORIDE (BEAKER) (test 106 meq/L 98-107 itkr=040) CO2 (BEAKER) (test 21 meq/L 22-29 rlqr=941) BLOOD UREA NITROGEN 19 mg/dL 7-21 (BEAKER) (test uglc=875) CREATININE (BEAKER) (test 1.62 mg/dL 0.57-1.25 sxrx=311) GLUCOSE RANDOM (BEAKER) 98 mg/dL 70-105 (test zovd=976) CALCIUM (BEAKER) (test 8.6 mg/dL 8.4-10.2 vptq=333) EGFR (BEAKER) (test 45 mL/min/1.73 sq m ESTIMATED GFR IS NOT yqmk=4494) ACCURATE CREATININE CLEARANCE IN PREDICTING GLOMERULAR FILTRATION RATE. ESTIMATED GFR IS NOT APPLICABLE FOR DIALYSIS PATIENTS. Specimen moderately ictericHEPATIC FUNCTION [id number] 06:50:00 Test Item Value Reference Range Comments TOTAL PROTEIN (BEAKER) (test piaa=409) 6.3 gm/dL 6.0-8.3 ALBUMIN (BEAKER) (test jbwq=0977) 3.7 g/dL 3.5-5.0 BILIRUBIN TOTAL (BEAKER) (test yufn=011) 6.2 mg/dL 0.2-1.2 BILIRUBIN DIRECT (BEAKER) (test zpgf=590) 2.8 mg/dL 0.1-0.5 ALKALINE PHOSPHATASE (BEAKER) (test qvwy=630) 54 U/L 40-150 AST (SGOT) (BEAKER) (test spsm=330) 29 U/L 5-34 ALT (SGPT) (BEAKER) (test zubu=199) 8 U/L 6-55 Specimen moderately ictericCALCIUM, [id number] 06:48:00 Test Item Value Reference Range Comments CALCIUM IONIZED (BEAKER) (test cqzz=288) 1.12 mmol/L 1.12-1.27 PH, BLOOD (BEAKER) (test dbke=6854) 7.33 PROTHROMBIN [id number] 06:24:00 Test Item Value Reference Range Comments PROTIME (BEAKER) (test pwnr=540) 25.4 seconds 11.7-14.7 INR (BEAKER) (test tlcm=046) 2.3 <=5.9 RECOMMENDED COUMADIN/WARFARIN INR THERAPY RANGESSTANDARD DOSE: 2.0 - 3.0 Includes: PROPHYLAXIS forvenous thrombosis, systemic embolization; TREATMENT for venous thrombosis and/or pulmonary embolus.HIGH RISK: Target INR is 2.5-3.5 for patients with mechanical heart valves.[id number] 11:17:00 Test Item Value Reference Range Comments FIBRINOGEN LEVEL (BEAKER) (test gbgw=079) 115 mg/dl 225-434 CALCIUM, [id number] 06:04:00 Test Item Value Reference Range Comments CALCIUM IONIZED (BEAKER) (test xayn=145) 1.08 mmol/L 1.12-1.27 PH, BLOOD (BEAKER) (test xccq=7798) 7.41 CBC W/PLT COUNT & AUTO [id number] 05:28:00 Test Item Value Reference Range Comments WHITE BLOOD CELL COUNT (BEAKER) (test lyzj=449) 5.6 K/ L 4.0-10.0 RED BLOOD CELL COUNT (BEAKER) (test lwcn=949) 2.00 M/ L 4.20-5.80 HEMOGLOBIN (BEAKER) (test vikz=116) 7.2 GM/DL 13.0-16.8 HEMATOCRIT (BEAKER) (test vyeb=144) 21.2 % 40.0-50.0 MEAN CORPUSCULAR VOLUME (BEAKER) (test bllj=844) 106.0 fL 82.0-98.0 MEAN CORPUSCULAR HEMOGLOBIN (BEAKER) (test 36.0 pg 27.0-33.0 dlyh=697) MEAN CORPUSCULAR HEMOGLOBIN CONC (BEAKER) (test 34.0 GM/DL 32.0-36.0 imoy=215) RED CELL DISTRIBUTION WIDTH (BEAKER) (test 13.9 % 10.3-14.2 ohkb=792) PLATELET COUNT (BEAKER) (test mxfk=941) 74 K/CU MM 150-430 MEAN PLATELET VOLUME (BEAKER) (test bymy=755) 6.6 fL 6.5-10.5 NUCLEATED RED BLOOD CELLS (BEAKER) (test 0 /100 WBC 0-0 aogs=547) NEUTROPHILS RELATIVE PERCENT (BEAKER) (test 66 % klhh=490) LYMPHOCYTES RELATIVE PERCENT (BEAKER) (test 14 % uoce=038) MONOCYTES RELATIVE PERCENT (BEAKER) (test 13 % qhlt=030) EOSINOPHILS RELATIVE PERCENT (BEAKER) (test 7 % wjfr=141) BASOPHILS RELATIVE PERCENT (BEAKER) (test 0 % zmgc=029) NEUTROPHILS ABSOLUTE COUNT (BEAKER) (test 3.67 K/ L 1.80-8.00 tmve=801) LYMPHOCYTES ABSOLUTE COUNT (BEAKER) (test 0.80 K/ L 1.48-4.50 olcf=088) MONOCYTES ABSOLUTE COUNT (BEAKER) (test zygs=451) 0.69 K/ L 0.00-1.30 EOSINOPHILS ABSOLUTE COUNT (BEAKER) (test 0.38 K/ L 0.00-0.50 ywoq=568) BASOPHILS ABSOLUTE COUNT (BEAKER) (test zobt=735) 0.02 K/ L 0.00-0.20 0.00PROTHROMBIN [id number] 05:11:00 Test Item Value Reference Range Comments PROTIME (BEAKER) (test vgoq=188) 25.9 seconds 11.7-14.7 INR (BEAKER) (test tawk=104) 2.4 <=5.9 RECOMMENDED COUMADIN/WARFARIN INR THERAPY RANGESSTANDARD DOSE: 2.0 - 3.0 Includes: PROPHYLAXIS forvenous thrombosis, systemic embolization; TREATMENT for venous thrombosis and/or pulmonary embolus.HIGH RISK: Target INR is 2.5-3.5 for patients with mechanical heart valves.[id number] 05:03:00 Test Item Value Reference Range Comments PHOSPHORUS (BEAKER) (test sumj=801) 3.5 mg/dL 2.3-4.7 [id number] 05:03:00 Test Item Value Reference Range Comments MAGNESIUM (BEAKER) (test lmac=375) 1.7 mg/dL 1.6-2.6 BASIC METABOLIC [id number] 05:03:00 Test Item Value Reference Range Comments SODIUM (BEAKER) (test 135 meq/L 136-145 litv=849) POTASSIUM (BEAKER) (test 4.0 meq/L 3.5-5.1 xghe=633) CHLORIDE (BEAKER) (test 107 meq/L 98-107 wjfo=968) CO2 (BEAKER) (test 20 meq/L 22-29 qjtf=695) BLOOD UREA NITROGEN 22 mg/dL 7-21 (BEAKER) (test tafy=185) CREATININE (BEAKER) (test 1.77 mg/dL 0.57-1.25 wunv=514) GLUCOSE RANDOM (BEAKER) 83 mg/dL 70-105 (test avta=395) CALCIUM (BEAKER) (test 8.3 mg/dL 8.4-10.2 nwxy=520) EGFR (BEAKER) (test 41 mL/min/1.73 sq m ESTIMATED GFR IS NOT qcuu=4296) ACCURATE CREATININE CLEARANCE IN PREDICTING GLOMERULAR FILTRATION RATE. ESTIMATED GFR IS NOT APPLICABLE FOR DIALYSIS PATIENTS. Specimen moderately ictericHEPATIC FUNCTION [id number] 05:03:00 Test Item Value Reference Range Comments TOTAL PROTEIN (BEAKER) (test ihjn=091) 6.2 gm/dL 6.0-8.3 ALBUMIN (BEAKER) (test zwzc=1945) 3.7 g/dL 3.5-5.0 BILIRUBIN TOTAL (BEAKER) (test zllo=910) 6.0 mg/dL 0.2-1.2 BILIRUBIN DIRECT (BEAKER) (test qitl=347) 2.6 mg/dL 0.1-0.5 ALKALINE PHOSPHATASE (BEAKER) (test wezb=651) 48 U/L 40-150 AST (SGOT) (BEAKER) (test uofq=753) 26 U/L 5-34 ALT (SGPT) (BEAKER) (test yliw=918) 8 U/L 6-55 Specimen moderately ictericURINE [id number] 14:42:00 Test Item Value Reference Range Comments CULTURE (BEAKER) (test dkqj=2468) No growth ANTI-NUCLEAR ANTIBODY (CHERYL)2017-02-12 13:32:00 Test Item Value Reference Range Comments ANTI-NUCLEAR ANTIBODY (CHERYL) (BEAKER) (test Negative Negative zuwd=989) PLATELET [id number] 06:30:00 Test Item Value Reference Range Comments PLATELET COUNT (BEAKER) (test dbll=013) 104 K/CU MM 150-430 [id number] 06:22:00 Test Item Value Reference Range Comments FIBRINOGEN LEVEL (BEAKER) (test ztwn=439) 106 mg/dl 225-434 [id number] 06:16:00 Test Item Value Reference Range Comments PARTIAL THROMBOPLASTIN TIME (BEAKER) (test 48.1 seconds 22.5-36.0 rxnf=770) PROTHROMBIN [id number] 06:15:00 Test Item Value Reference Range Comments PROTIME (BEAKER) (test mcrr=569) 23.5 seconds 11.7-14.7 INR (BEAKER) (test zjut=916) 2.1 <=5.9 RECOMMENDED COUMADIN/WARFARIN INR THERAPY RANGESSTANDARD DOSE: 2.0 - 3.0 Includes: PROPHYLAXIS forvenous thrombosis, systemic embolization; TREATMENT for venous thrombosis and/or pulmonary embolus.HIGH RISK: Target INR is 2.5-3.5 for patients with mechanical heart valves.[id number] 06:12:00 Test Item Value Reference Range Comments MAGNESIUM (BEAKER) (test 2.0 mg/dL 1.6-2.6 Specimen slightly hemolyzed bkzd=633) [id number] 06:12:00 Test Item Value Reference Range Comments PHOSPHORUS (BEAKER) (test 5.0 mg/dL 2.3-4.7 Specimen slightly hemolyzed rvse=449) BASIC METABOLIC [id number] 06:12:00 Test Item Value Reference Range Comments SODIUM (BEAKER) (test 135 meq/L 136-145 jntt=895) POTASSIUM (BEAKER) (test 4.7 meq/L 3.5-5.1 Specimen slightly yciv=007) hemolyzed CHLORIDE (BEAKER) (test 107 meq/L 98-107 gspy=429) CO2 (BEAKER) (test 20 meq/L 22-29 zowj=278) BLOOD UREA NITROGEN 18 mg/dL 7-21 (BEAKER) (test gord=903) CREATININE (BEAKER) (test 1.74 mg/dL 0.57-1.25 Specimen slightly utvt=326) hemolyzed GLUCOSE RANDOM (BEAKER) 76 mg/dL 70-105 (test bdhk=150) CALCIUM (BEAKER) (test 8.1 mg/dL 8.4-10.2 ghns=432) EGFR (BEAKER) (test 42 mL/min/1.73 sq m ESTIMATED GFR IS NOT trws=9655) ACCURATE CREATININE CLEARANCE IN PREDICTING GLOMERULAR FILTRATION RATE. ESTIMATED GFR IS NOT APPLICABLE FOR DIALYSIS PATIENTS. Specimen moderately ictericHEPATIC FUNCTION [id number] 06:12:00 Test Item Value Reference Range Comments TOTAL PROTEIN (BEAKER) (test 6.6 gm/dL 6.0-8.3 Specimen slightly hemolyzed bxkq=348) ALBUMIN (BEAKER) (test 3.7 g/dL 3.5-5.0 Specimen slightly hemolyzed qmxx=9708) BILIRUBIN TOTAL (BEAKER) (test 5.7 mg/dL 0.2-1.2 Specimen slightly hemolyzed ftab=326) BILIRUBIN DIRECT (BEAKER) (test 2.7 mg/dL 0.1-0.5 Specimen slightly hemolyzed jbpm=401) ALKALINE PHOSPHATASE (BEAKER) 56 U/L 40-150 (test rzcg=177) AST (SGOT) (BEAKER) (test 29 U/L 5-34 Specimen slightly hemolyzed bxvh=911) ALT (SGPT) (BEAKER) (test 7 U/L 6-55 Specimen slightly hemolyzed esyv=962) Specimen moderately ictericLACTIC ACID, VENOUS, WHOLE [id number] 06:04:00 Test Item Value Reference Range Comments LACTATE BLOOD VENOUS (2) (BEAKER) (test 1.0 mmol/L 0.5-2.2 dnqu=9769) Effective 02/28/2016: Units/Reference Range ChangeNew: 0.5-2.2 mmol/L Previous: 5 -20 mg/dLSpecimen moderately ictericCALCIUM, [id number] 05:56:00 Test Item Value Reference Range Comments CALCIUM IONIZED (BEAKER) (test ufdq=311) 1.00 mmol/L 1.12-1.27 PH, BLOOD (BEAKER) (test ontk=6124) 7.34 [id number] 21:34:00 Test Item Value Reference Range Comments FIBRINOGEN LEVEL (BEAKER) (test crhl=261) 105 mg/dl 225-434 PLATELET [id number] 20:52:00 Test Item Value Reference Range Comments PLATELET COUNT (BEAKER) (test syqe=458) 77 K/CU MM 150-430 [id number] 20:51:00 Test Item Value Reference Range Comments PROTIME (BEAKER) (test tczt=464) 21.1 seconds 11.7-14.7 INR (BEAKER) (test pwsa=065) 1.8 <=5.9 PARTIAL THROMBOPLASTIN TIME (BEAKER) (test 47.3 seconds 22.5-36.0 wjbb=790) RECOMMENDED COUMADIN/WARFARIN INR THERAPY RANGESSTANDARD DOSE: 2.0 - 3.0 Includes: PROPHYLAXIS forvenous thrombosis, systemic embolization; TREATMENT for venous thrombosis and/or pulmonary embolus.HIGH RISK: Target INR is 2.5-3.5 for patients with mechanical heart valves.[id number] 20:51:00 Test Item Value Reference Range Comments PARTIAL THROMBOPLASTIN TIME (BEAKER) (test 47.3 seconds 22.5-36.0 tlzs=264) PROTHROMBIN TIME/[id number] 20:50:00 Test Item Value Reference Range Comments PROTIME (BEAKER) (test mqxj=371) 21.1 seconds 11.7-14.7 INR (BEAKER) (test qwix=009) 1.8 <=5.9 RECOMMENDED COUMADIN/WARFARIN INR THERAPY RANGESSTANDARD DOSE: 2.0 - 3.0 Includes: PROPHYLAXIS forvenous thrombosis, systemic embolization; TREATMENT for venous thrombosis and/or pulmonary embolus.HIGH RISK: Target INR is 2.5-3.5 for patients with mechanical heart valves.[id number] 19:30:00 Test Item Value Reference Range Comments PARTIAL THROMBOPLASTIN TIME (BEAKER) (test 45.1 seconds 22.5-36.0 toyk=020) PROTHROMBIN TIME/[id number] 19:29:00 Test Item Value Reference Range Comments PROTIME (BEAKER) (test fmvg=358) 28.2 seconds 11.7-14.7 INR (BEAKER) (test jikr=354) 2.6 <=5.9 RECOMMENDED COUMADIN/WARFARIN INR THERAPY RANGESSTANDARD DOSE: 2.0 - 3.0 Includes: PROPHYLAXIS forvenous thrombosis, systemic embolization; TREATMENT for venous thrombosis and/or pulmonary embolus.HIGH RISK: Target INR is 2.5-3.5 for patients with mechanical heart valves.BODY FLUID CELL COUNT WITH [id number] 18:53:00 Test Item Value Reference Range Comments APPEARANCE FLUID (BEAKER) (test aqaj=375) Hazy Clear COLOR FLUID (BEAKER) (test rdwa=189) Yellow Colorless, Straw RBC FLUID (BEAKER) (test eiqo=278) 900 /cu mm <=1 ADJUSTED WBC FLUID (BEAKER) (test nqti=6873) 306 /cu mm <=5 LINING CELLS (BEAKER) (test gjbp=1688) 64 /cu mm <=1 NEUTROPHILS FLUID (BEAKER) (test lfvd=2643) 4 % LYMPHS FLUID (BEAKER) (test vhot=859) 18 % MONO/MACROPHAGE FLUID (BEAKER) (test nvhg=941) 78 % EOSINOPHILS FLUID (BEAKER) (test adil=154) 0 % BASO FLUID (BEAKER) (test pxar=571) 0 % CONTAINER BODY FLUID (BEAKER) (test uniz=3285) EDTA Tube [id number] 16:56:00 Test Item Value Reference Range Comments AMYLASE (BEAKER) (test cwcc=378) 37 U/L 25-125 Specimen moderately ictericCOMPREHENSIVE METABOLIC [id number] 16:56:00 Test Item Value Reference Range Comments TOTAL PROTEIN (BEAKER) 6.1 gm/dL 6.0-8.3 (test ndnl=299) ALBUMIN (BEAKER) (test 3.2 g/dL 3.5-5.0 qqmk=0153) ALKALINE PHOSPHATASE 67 U/L 40-150 (BEAKER) (test hhkj=493) BILIRUBIN TOTAL (BEAKER) 5.7 mg/dL 0.2-1.2 (test xvjt=680) SODIUM (BEAKER) (test 134 meq/L 136-145 roay=379) POTASSIUM (BEAKER) (test 3.8 meq/L 3.5-5.1 xrex=724) CHLORIDE (BEAKER) (test 106 meq/L 98-107 lxnc=706) CO2 (BEAKER) (test 19 meq/L 22-29 udia=220) BLOOD UREA NITROGEN 18 mg/dL 7-21 (BEAKER) (test ahhl=629) CREATININE (BEAKER) (test 1.52 mg/dL 0.57-1.25 levj=173) GLUCOSE RANDOM (BEAKER) 112 mg/dL 70-105 (test xsew=721) CALCIUM (BEAKER) (test 8.3 mg/dL 8.4-10.2 tbep=371) AST (SGOT) (BEAKER) (test 28 U/L 5-34 rjqs=330) ALT (SGPT) (BEAKER) (test 10 U/L 6-55 qyhz=367) EGFR (BEAKER) (test 49 mL/min/1.73 sq m ESTIMATED GFR IS NOT xadn=1790) ACCURATE CREATININE CLEARANCE IN PREDICTING GLOMERULAR FILTRATION RATE. ESTIMATED GFR IS NOT APPLICABLE FOR DIALYSIS PATIENTS. Specimen moderately [id number] 16:56:00 Test Item Value Reference Range Comments LIPASE (BEAKER) (test emsg=319) 52 U/L 8-78 Specimen moderately ictericCBC W/PLT COUNT & AUTO [id number] 16: 27:00 Test Item Value Reference Range Comments WHITE BLOOD CELL COUNT (BEAKER) (test lvfe=309) 3.7 K/ L 4.0-10.0 RED BLOOD CELL COUNT (BEAKER) (test zoec=595) 2.16 M/ L 4.20-5.80 HEMOGLOBIN (BEAKER) (test exlh=264) 7.8 GM/DL 13.0-16.8 HEMATOCRIT (BEAKER) (test jmfs=406) 23.1 % 40.0-50.0 MEAN CORPUSCULAR VOLUME (BEAKER) (test oxon=672) 107.0 fL 82.0-98.0 MEAN CORPUSCULAR HEMOGLOBIN (BEAKER) (test 36.0 pg 27.0-33.0 qlmn=284) MEAN CORPUSCULAR HEMOGLOBIN CONC (BEAKER) (test 33.6 GM/DL 32.0-36.0 ufxb=609) RED CELL DISTRIBUTION WIDTH (BEAKER) (test 13.9 % 10.3-14.2 whzi=080) PLATELET COUNT (BEAKER) (test qnzq=855) 78 K/CU MM 150-430 MEAN PLATELET VOLUME (BEAKER) (test lwcw=992) 6.2 fL 6.5-10.5 NUCLEATED RED BLOOD CELLS (BEAKER) (test 0 /100 WBC 0-0 iggk=489) NEUTROPHILS RELATIVE PERCENT (BEAKER) (test 50 % erle=804) LYMPHOCYTES RELATIVE PERCENT (BEAKER) (test 25 % ktro=406) MONOCYTES RELATIVE PERCENT (BEAKER) (test 19 % vgxj=546) EOSINOPHILS RELATIVE PERCENT (BEAKER) (test 6 % ihpz=258) BASOPHILS RELATIVE PERCENT (BEAKER) (test 1 % dfot=586) NEUTROPHILS ABSOLUTE COUNT (BEAKER) (test 1.82 K/ L 1.80-8.00 ihom=045) LYMPHOCYTES ABSOLUTE COUNT (BEAKER) (test 0.91 K/ L 1.48-4.50 vqdq=561) MONOCYTES ABSOLUTE COUNT (BEAKER) (test pypd=317) 0.69 K/ L 0.00-1.30 EOSINOPHILS ABSOLUTE COUNT (BEAKER) (test 0.21 K/ L 0.00-0.50 ftcm=931) BASOPHILS ABSOLUTE COUNT (BEAKER) (test dqfo=449) 0.02 K/ L 0.00-0.20 0.00HEPATIC FUNCTION [id number] 08:34:00 Test Item Value Reference Range Comments TOTAL PROTEIN (BEAKER) (test fvft=598) 5.9 gm/dL 6.0-8.3 ALBUMIN (BEAKER) (test ivhu=1204) 3.2 g/dL 3.5-5.0 BILIRUBIN TOTAL (BEAKER) (test fnkt=526) 5.4 mg/dL 0.2-1.2 BILIRUBIN DIRECT (BEAKER) (test ildl=829) 2.5 mg/dL 0.1-0.5 ALKALINE PHOSPHATASE (BEAKER) (test wwuk=901) 60 U/L 40-150 AST (SGOT) (BEAKER) (test vttq=896) 28 U/L 5-34 ALT (SGPT) (BEAKER) (test gdvc=797) 10 U/L 6-55 Specimen moderately [id number] 08:16:00 Test Item Value Reference Range Comments PHOSPHORUS (BEAKER) (test lkbj=820) 3.0 mg/dL 2.3-4.7 [id number] 08:16:00 Test Item Value Reference Range Comments MAGNESIUM (BEAKER) (test ktcd=227) 1.6 mg/dL 1.6-2.6 BASIC METABOLIC [id number] 08:16:00 Test Item Value Reference Range Comments SODIUM (BEAKER) (test 133 meq/L 136-145 frnr=726) POTASSIUM (BEAKER) (test 3.6 meq/L 3.5-5.1 sijt=113) CHLORIDE (BEAKER) (test 105 meq/L 98-107 njdn=412) CO2 (BEAKER) (test 20 meq/L 22-29 dung=860) BLOOD UREA NITROGEN 18 mg/dL 7-21 (BEAKER) (test crld=830) CREATININE (BEAKER) (test 1.54 mg/dL 0.57-1.25 yuun=891) GLUCOSE RANDOM (BEAKER) 70 mg/dL 70-105 (test gjyi=505) CALCIUM (BEAKER) (test 8.2 mg/dL 8.4-10.2 qiby=545) EGFR (BEAKER) (test 48 mL/min/1.73 sq m ESTIMATED GFR IS NOT xiwi=8939) ACCURATE CREATININE CLEARANCE IN PREDICTING GLOMERULAR FILTRATION RATE. ESTIMATED GFR IS NOT APPLICABLE FOR DIALYSIS PATIENTS. Specimen moderately ictericCBC W/PLT COUNT & AUTO [id number] 08: 06:00 Test Item Value Reference Range Comments WHITE BLOOD CELL COUNT (BEAKER) (test mseq=696) 3.4 K/ L 4.0-10.0 RED BLOOD CELL COUNT (BEAKER) (test eviv=467) 2.03 M/ L 4.20-5.80 HEMOGLOBIN (BEAKER) (test frpv=063) 7.3 GM/DL 13.0-16.8 HEMATOCRIT (BEAKER) (test pszl=179) 21.6 % 40.0-50.0 MEAN CORPUSCULAR VOLUME (BEAKER) (test nupm=400) 106.0 fL 82.0-98.0 MEAN CORPUSCULAR HEMOGLOBIN (BEAKER) (test 35.8 pg 27.0-33.0 xzgy=699) MEAN CORPUSCULAR HEMOGLOBIN CONC (BEAKER) (test 33.7 GM/DL 32.0-36.0 pyno=465) RED CELL DISTRIBUTION WIDTH (BEAKER) (test 13.5 % 10.3-14.2 gkei=939) PLATELET COUNT (BEAKER) (test ipkb=846) 82 K/CU MM 150-430 MEAN PLATELET VOLUME (BEAKER) (test rjry=462) 6.7 fL 6.5-10.5 NUCLEATED RED BLOOD CELLS (BEAKER) (test 0 /100 WBC 0-0 krye=626) NEUTROPHILS RELATIVE PERCENT (BEAKER) (test 50 % uujb=316) LYMPHOCYTES RELATIVE PERCENT (BEAKER) (test 25 % cwdt=535) MONOCYTES RELATIVE PERCENT (BEAKER) (test 19 % nxhn=767) EOSINOPHILS RELATIVE PERCENT (BEAKER) (test 5 % fvsy=391) BASOPHILS RELATIVE PERCENT (BEAKER) (test 1 % wdwd=662) NEUTROPHILS ABSOLUTE COUNT (BEAKER) (test 1.69 K/ L 1.80-8.00 igkk=669) LYMPHOCYTES ABSOLUTE COUNT (BEAKER) (test 0.83 K/ L 1.48-4.50 isiu=882) MONOCYTES ABSOLUTE COUNT (BEAKER) (test jpng=650) 0.65 K/ L 0.00-1.30 EOSINOPHILS ABSOLUTE COUNT (BEAKER) (test 0.17 K/ L 0.00-0.50 sgrh=998) BASOPHILS ABSOLUTE COUNT (BEAKER) (test tohf=484) 0.04 K/ L 0.00-0.20 0.00PROTHROMBIN [id number] 08:01:00 Test Item Value Reference Range Comments PROTIME (BEAKER) (test ckfk=292) 27.6 seconds 11.7-14.7 INR (BEAKER) (test isdm=150) 2.6 <=5.9 RECOMMENDED COUMADIN/WARFARIN INR THERAPY RANGESSTANDARD DOSE: 2.0 - 3.0 Includes: PROPHYLAXIS forvenous thrombosis, systemic embolization; TREATMENT for venous thrombosis and/or pulmonary embolus.HIGH RISK: Target INR is 2.5-3.5 for patients with mechanical heart valves.CALCIUM, [id number] 07:58:00 Test Item Value Reference Range Comments CALCIUM IONIZED (BEAKER) (test pkka=998) 1.00 mmol/L 1.12-1.27 PH, BLOOD (BEAKER) (test gqlc=8154) 7.53 URINALYSIS W/ [id number] 18:42:00 Test Item Value Reference Range Comments COLOR (BEAKER) (test minp=509) Yellow CLARITY (BEAKER) (test kyfz=499) Clear SPECIFIC GRAVITY UA (BEAKER) (test 1.009 1.001-1.035 ewhn=025) PH UA (BEAKER) (test tjrw=371) 7.5 5.0-8.0 PROTEIN UA (BEAKER) (test jnqe=177) Negative Negative GLUCOSE UA (BEAKER) (test syju=922) Negative Negative KETONES UA (BEAKER) (test nxin=080) Negative Negative BILIRUBIN UA (BEAKER) (test pdhx=718) Negative Negative BLOOD UA (BEAKER) (test xqha=375) Negative Negative NITRITE UA (BEAKER) (test xvmv=589) Negative Negative LEUKOCYTE ESTERASE UA (BEAKER) (test Negative Negative spog=631) UROBILINOGEN UA (BEAKER) (test dcjk=249) 3.0 mg/dL 0.2-1.0 RBC UA (BEAKER) (test gngk=581) 6 /HPF WBC UA (BEAKER) (test tzxa=978) 1 /HPF SOURCE(BEAKER) (test cfyw=1741) Urine, Clean Catch PROTHROMBIN [id number] 15:13:00 Test Item Value Reference Range Comments PROTIME (BEAKER) (test rfyv=158) 31.4 seconds 11.7-14.7 INR (BEAKER) (test vcaj=826) 3.0 <=5.9 RECOMMENDED COUMADIN/WARFARIN INR THERAPY RANGESSTANDARD DOSE: 2.0 - 3.0 Includes: PROPHYLAXIS forvenous thrombosis, systemic embolization; TREATMENT for venous thrombosis and/or pulmonary embolus.HIGH RISK: Target INR is 2.5-3.5 for patients with mechanical heart valves.Draw after vitamin K [facility]AD[facility]/PLT COUNT & AUTO [id number] 07:02:00 Test Item Value Reference Range Comments WHITE BLOOD CELL COUNT (BEAKER) (test iafp=319) 3.0 K/ L 4.0-10.0 RED BLOOD CELL COUNT (BEAKER) (test qnub=262) 2.21 M/ L 4.20-5.80 HEMOGLOBIN (BEAKER) (test rfsa=170) 7.5 GM/DL 13.0-16.8 HEMATOCRIT (BEAKER) (test bgzp=263) 23.5 % 40.0-50.0 MEAN CORPUSCULAR VOLUME (BEAKER) (test qlka=495) 106.0 fL 82.0-98.0 MEAN CORPUSCULAR HEMOGLOBIN (BEAKER) (test 34.0 pg 27.0-33.0 svqp=780) MEAN CORPUSCULAR HEMOGLOBIN CONC (BEAKER) (test 32.0 GM/DL 32.0-36.0 drai=302) RED CELL DISTRIBUTION WIDTH (BEAKER) (test 13.0 % 10.3-14.2 jvpg=732) PLATELET COUNT (BEAKER) (test npcf=517) 81 K/CU MM 150-430 MEAN PLATELET VOLUME (BEAKER) (test zanf=555) 6.3 fL 6.5-10.5 NUCLEATED RED BLOOD CELLS (BEAKER) (test 0 /100 WBC 0-0 gzvo=786) NEUTROPHILS RELATIVE PERCENT (BEAKER) (test 52 % ihyv=620) LYMPHOCYTES RELATIVE PERCENT (BEAKER) (test 24 % pyxu=866) MONOCYTES RELATIVE PERCENT (BEAKER) (test 20 % ttff=018) EOSINOPHILS RELATIVE PERCENT (BEAKER) (test 3 % usod=684) BASOPHILS RELATIVE PERCENT (BEAKER) (test 1 % qctz=160) NEUTROPHILS ABSOLUTE COUNT (BEAKER) (test 1.53 K/ L 1.80-8.00 vvjp=395) LYMPHOCYTES ABSOLUTE COUNT (BEAKER) (test 0.71 K/ L 1.48-4.50 mfqh=283) MONOCYTES ABSOLUTE COUNT (BEAKER) (test lksp=580) 0.60 K/ L 0.00-1.30 EOSINOPHILS ABSOLUTE COUNT (BEAKER) (test 0.10 K/ L 0.00-0.50 dxqg=635) BASOPHILS ABSOLUTE COUNT (BEAKER) (test gmaw=190) 0.03 K/ L 0.00-0.20 0.00BASIC METABOLIC [id number] 06:29:00 Test Item Value Reference Range Comments SODIUM (BEAKER) (test 135 meq/L 136-145 jvmi=886) POTASSIUM (BEAKER) (test 4.0 meq/L 3.5-5.1 jwog=704) CHLORIDE (BEAKER) (test 106 meq/L 98-107 ahgb=104) CO2 (BEAKER) (test 22 meq/L 22-29 tewo=653) BLOOD UREA NITROGEN 17 mg/dL 7-21 (BEAKER) (test flbj=744) CREATININE (BEAKER) (test 1.46 mg/dL 0.57-1.25 ahxl=201) GLUCOSE RANDOM (BEAKER) 75 mg/dL 70-105 (test qeiz=155) CALCIUM (BEAKER) (test 8.0 mg/dL 8.4-10.2 gyud=391) EGFR (BEAKER) (test 51 mL/min/1.73 sq m ESTIMATED GFR IS NOT dhiy=2082) ACCURATE CREATININE CLEARANCE IN PREDICTING GLOMERULAR FILTRATION RATE. ESTIMATED GFR IS NOT APPLICABLE FOR DIALYSIS PATIENTS. Specimen moderately ictericHEPATIC FUNCTION [id number] 06:29:00 Test Item Value Reference Range Comments TOTAL PROTEIN (BEAKER) (test akpz=889) 5.9 gm/dL 6.0-8.3 ALBUMIN (BEAKER) (test jozr=4439) 3.0 g/dL 3.5-5.0 BILIRUBIN TOTAL (BEAKER) (test udpk=393) 5.4 mg/dL 0.2-1.2 BILIRUBIN DIRECT (BEAKER) (test uisq=830) 2.7 mg/dL 0.1-0.5 ALKALINE PHOSPHATASE (BEAKER) (test puna=248) 65 U/L 40-150 AST (SGOT) (BEAKER) (test bvnv=449) 27 U/L 5-34 ALT (SGPT) (BEAKER) (test xvjo=740) 7 U/L 6-55 Specimen moderately ictericPROTHROMBIN [id number] 06:23:00 Test Item Value Reference Range Comments PROTIME (BEAKER) (test rzub=885) 31.2 seconds 11.7-14.7 INR (BEAKER) (test ezhl=461) 3.0 <=5.9 RECOMMENDED COUMADIN/WARFARIN INR THERAPY RANGESSTANDARD DOSE: 2.0 - 3.0 Includes: PROPHYLAXIS forvenous thrombosis, systemic embolization; TREATMENT for venous thrombosis and/or pulmonary embolus.HIGH RISK: Target INR is 2.5-3.5 for patients with mechanical heart valves.CBC W/PLT COUNT & AUTO [id number] 06:26:00 Test Item Value Reference Range Comments WHITE BLOOD CELL COUNT (BEAKER) (test zkej=686) 3.0 K/ L 4.0-10.0 RED BLOOD CELL COUNT (BEAKER) (test ckfy=553) 2.16 M/ L 4.20-5.80 HEMOGLOBIN (BEAKER) (test tgva=601) 7.4 GM/DL 13.0-16.8 HEMATOCRIT (BEAKER) (test ftmc=857) 23.1 % 40.0-50.0 MEAN CORPUSCULAR VOLUME (BEAKER) (test cbzx=940) 107.0 fL 82.0-98.0 MEAN CORPUSCULAR HEMOGLOBIN (BEAKER) (test 34.4 pg 27.0-33.0 ubfq=039) MEAN CORPUSCULAR HEMOGLOBIN CONC (BEAKER) (test 32.1 GM/DL 32.0-36.0 ypht=797) RED CELL DISTRIBUTION WIDTH (BEAKER) (test 13.1 % 10.3-14.2 nwik=386) PLATELET COUNT (BEAKER) (test zdhx=509) 72 K/CU MM 150-430 MEAN PLATELET VOLUME (BEAKER) (test mcwp=823) 6.1 fL 6.5-10.5 NUCLEATED RED BLOOD CELLS (BEAKER) (test 0 /100 WBC 0-0 rnys=769) NEUTROPHILS RELATIVE PERCENT (BEAKER) (test 58 % dzxo=230) LYMPHOCYTES RELATIVE PERCENT (BEAKER) (test 21 % tfli=572) MONOCYTES RELATIVE PERCENT (BEAKER) (test 15 % izav=602) EOSINOPHILS RELATIVE PERCENT (BEAKER) (test 4 % tzfr=753) BASOPHILS RELATIVE PERCENT (BEAKER) (test 1 % nkmk=344) NEUTROPHILS ABSOLUTE COUNT (BEAKER) (test 1.73 K/ L 1.80-8.00 ruil=515) LYMPHOCYTES ABSOLUTE COUNT (BEAKER) (test 0.64 K/ L 1.48-4.50 gqqv=809) MONOCYTES ABSOLUTE COUNT (BEAKER) (test ubfv=682) 0.45 K/ L 0.00-1.30 EOSINOPHILS ABSOLUTE COUNT (BEAKER) (test 0.13 K/ L 0.00-0.50 mrkq=467) BASOPHILS ABSOLUTE COUNT (BEAKER) (test wmpe=615) 0.02 K/ L 0.00-0.20 0.00BASIC METABOLIC [id number] 06:24:00 Test Item Value Reference Range Comments SODIUM (BEAKER) (test 134 meq/L 136-145 rrmh=902) POTASSIUM (BEAKER) (test 3.7 meq/L 3.5-5.1 hntv=975) CHLORIDE (BEAKER) (test 105 meq/L 98-107 dbvn=992) CO2 (BEAKER) (test 21 meq/L 22-29 vrvt=737) BLOOD UREA NITROGEN 18 mg/dL 7-21 (BEAKER) (test lyfs=054) CREATININE (BEAKER) (test 1.53 mg/dL 0.57-1.25 jyvi=179) GLUCOSE RANDOM (BEAKER) 103 mg/dL 70-105 (test oarl=055) CALCIUM (BEAKER) (test 7.6 mg/dL 8.4-10.2 rthu=447) EGFR (BEAKER) (test 48 mL/min/1.73 sq m ESTIMATED GFR IS NOT ycdu=1663) ACCURATE CREATININE CLEARANCE IN PREDICTING GLOMERULAR FILTRATION RATE. ESTIMATED GFR IS NOT APPLICABLE FOR DIALYSIS PATIENTS. Specimen moderately ictericHEPATIC FUNCTION [id number] 06:19:00 Test Item Value Reference Range Comments TOTAL PROTEIN (BEAKER) (test obza=197) 5.6 gm/dL 6.0-8.3 ALBUMIN (BEAKER) (test ezvz=0463) 2.4 g/dL 3.5-5.0 BILIRUBIN TOTAL (BEAKER) (test xmel=273) 4.8 mg/dL 0.2-1.2 BILIRUBIN DIRECT (BEAKER) (test czts=140) 2.6 mg/dL 0.1-0.5 ALKALINE PHOSPHATASE (BEAKER) (test txgv=095) 70 U/L 40-150 AST (SGOT) (BEAKER) (test rjas=270) 28 U/L 5-34 ALT (SGPT) (BEAKER) (test rjnk=377) 11 U/L 6-55 Specimen moderately ictericPROTHROMBIN [id number] 06:00:00 Test Item Value Reference Range Comments PROTIME (BEAKER) (test ktkk=464) 36.7 seconds 11.7-14.7 INR (BEAKER) (test jris=937) 3.7 <=5.9 RECOMMENDED COUMADIN/WARFARIN INR THERAPY RANGESSTANDARD DOSE: 2.0 - 3.0 Includes: PROPHYLAXIS forvenous thrombosis, systemic embolization; TREATMENT for venous thrombosis and/or pulmonary embolus.HIGH RISK: Target INR is 2.5-3.5 for patients with mechanical heart valves.BODY FLUID CULTURE + GRAM [id number] 00:51:00 Test Item Value Reference Range Comments CULTURE (BEAKER) (test eugc=5115) No growth GRAM STAIN RESULT (BEAKER) (test 3+ WBCs goin=0673) GRAM STAIN RESULT (BEAKER) (test No organisms seen luco=45444) BLOOD [id number] 17:08:00 Test Item Value Reference Range Comments CULTURE (BEAKER) (test ftrd=9352) No growth in 5 days BLOOD [id number] 17:06:00 Test Item Value Reference Range Comments CULTURE (BEAKER) (test zkel=4635) No growth in 5 days CBC W/PLT COUNT & AUTO [id number] 07:05:00 Test Item Value Reference Range Comments WHITE BLOOD CELL COUNT (BEAKER) (test ygsn=091) 3.5 K/ L 4.0-10.0 RED BLOOD CELL COUNT (BEAKER) (test strn=361) 2.16 M/ L 4.20-5.80 HEMOGLOBIN (BEAKER) (test bdtn=805) 7.8 GM/DL 13.0-16.8 HEMATOCRIT (BEAKER) (test eari=015) 23.9 % 40.0-50.0 MEAN CORPUSCULAR VOLUME (BEAKER) (test fzjy=109) 111.0 fL 82.0-98.0 MEAN CORPUSCULAR HEMOGLOBIN (BEAKER) (test 36.3 pg 27.0-33.0 badz=508) MEAN CORPUSCULAR HEMOGLOBIN CONC (BEAKER) (test 32.8 GM/DL 32.0-36.0 ouxa=492) RED CELL DISTRIBUTION WIDTH (BEAKER) (test 13.9 % 10.3-14.2 sxwv=008) PLATELET COUNT (BEAKER) (test lwxe=047) 72 K/CU MM 150-430 MEAN PLATELET VOLUME (BEAKER) (test pqws=585) 6.4 fL 6.5-10.5 NUCLEATED RED BLOOD CELLS (BEAKER) (test 0 /100 WBC 0-0 tpwa=714) NEUTROPHILS RELATIVE PERCENT (BEAKER) (test 51 % wdln=534) LYMPHOCYTES RELATIVE PERCENT (BEAKER) (test 25 % vpiq=428) MONOCYTES RELATIVE PERCENT (BEAKER) (test 18 % xefi=607) EOSINOPHILS RELATIVE PERCENT (BEAKER) (test 6 % djbc=789) BASOPHILS RELATIVE PERCENT (BEAKER) (test 0 % hsvj=271) NEUTROPHILS ABSOLUTE COUNT (BEAKER) (test 1.77 K/ L 1.80-8.00 zbkt=662) LYMPHOCYTES ABSOLUTE COUNT (BEAKER) (test 0.87 K/ L 1.48-4.50 ckpk=228) MONOCYTES ABSOLUTE COUNT (BEAKER) (test llpe=971) 0.62 K/ L 0.00-1.30 EOSINOPHILS ABSOLUTE COUNT (BEAKER) (test 0.22 K/ L 0.00-0.50 vxrm=119) BASOPHILS ABSOLUTE COUNT (BEAKER) (test hzty=438) 0.01 K/ L 0.00-0.20 0.00BASI METABOLIC [id number] 06:54:00 Test Item Value Reference Range Comments SODIUM (BEAKER) (test 137 meq/L 136-145 hgqz=351) POTASSIUM (BEAKER) (test 3.8 meq/L 3.5-5.1 uejs=324) CHLORIDE (BEAKER) (test 109 meq/L 98-107 vxfp=468) CO2 (BEAKER) (test 21 meq/L 22-29 dhfh=995) BLOOD UREA NITROGEN 17 mg/dL 7-21 (BEAKER) (test zckh=548) CREATININE (BEAKER) (test 1.60 mg/dL 0.57-1.25 roqd=965) GLUCOSE RANDOM (BEAKER) 76 mg/dL 70-105 (test esod=657) CALCIUM (BEAKER) (test 7.5 mg/dL 8.4-10.2 qwdx=593) EGFR (BEAKER) (test 46 mL/min/1.73 sq m ESTIMATED GFR IS NOT knqi=9533) ACCURATE CREATININE CLEARANCE IN PREDICTING GLOMERULAR FILTRATION RATE. ESTIMATED GFR IS NOT APPLICABLE FOR DIALYSIS PATIENTS. Specimen moderately ictericHEPATIC FUNCTION [id number] 06:53:00 Test Item Value Reference Range Comments TOTAL PROTEIN (BEAKER) (test bqqo=489) 5.6 gm/dL 6.0-8.3 ALBUMIN (BEAKER) (test hyrb=2308) 2.4 g/dL 3.5-5.0 BILIRUBIN TOTAL (BEAKER) (test eqwo=279) 4.5 mg/dL 0.2-1.2 BILIRUBIN DIRECT (BEAKER) (test gxto=598) 2.7 mg/dL 0.1-0.5 ALKALINE PHOSPHATASE (BEAKER) (test noyx=493) 74 U/L 40-150 AST (SGOT) (BEAKER) (test zcay=870) 36 U/L 5-34 ALT (SGPT) (BEAKER) (test bbpo=019) 13 U/L 6-55 Specimen moderately ictericB-TYPE NATRIURETIC FACTOR (BNP)[id number] 06:52:00 Test Item Value Reference Range Comments B-TYPE NATRIURETIC PEPTIDE (BEAKER) (test 446 pg/mL 0-100 zoda=894) PROTHROMBIN [id number] 06:36:00 Test Item Value Reference Range Comments PROTIME (BEAKER) (test kliy=482) 28.7 seconds 11.7-14.7 INR (BEAKER) (test xfmy=241) 2.7 <=5.9 RECOMMENDED COUMADIN/WARFARIN INR THERAPY RANGESSTANDARD DOSE: 2.0 - 3.0 Includes: PROPHYLAXIS forvenous thrombosis, systemic embolization; TREATMENT for venous thrombosis and/or pulmonary embolus.HIGH RISK: Target INR is 2.5-3.5 for patients with mechanical heart valves.EOSINOPHIL SMEAR, [id number] 21: 44:00 Test Item Value Reference Range Comments EOSINOPHIL SMEAR, URINE (BEAKER) (test No EOS seen No EOS seen eiku=5846) CREATININE, RANDOM [id number] 18:02:00 Test Item Value Reference Range Comments CREATININE URINE (BEAKER) (test npwa=389) 96.3 mg/dL Reference Range: No NormalsSODIUM, RANDOM [id number] 18:02:00 Test Item Value Reference Range Comments SODIUM URINE (BEAKER) (test eoay=598) 58 meq/L Reference Range: No NormalsURINALYSIS W/ [id number] 17:33:00 Test Item Value Reference Range Comments COLOR (BEAKER) (test rpxk=620) Yellow CLARITY (BEAKER) (test kyfx=649) Clear SPECIFIC GRAVITY UA (BEAKER) (test wagi=442) 1.009 1.001-1.035 PH UA (BEAKER) (test qlke=727) 6.0 5.0-8.0 PROTEIN UA (BEAKER) (test gqvz=685) Negative Negative GLUCOSE UA (BEAKER) (test mkuu=050) Negative Negative KETONES UA (BEAKER) (test opca=101) Negative Negative BILIRUBIN UA (BEAKER) (test fxof=910) Negative Negative BLOOD UA (BEAKER) (test hagn=235) Negative Negative NITRITE UA (BEAKER) (test gvvq=783) Negative Negative LEUKOCYTE ESTERASE UA (BEAKER) (test zkwv=030) Negative Negative UROBILINOGEN UA (BEAKER) (test cdjb=920) 4.0 mg/dL 0.2-1.0 RBC UA (BEAKER) (test zywu=679) < /HPF WBC UA (BEAKER) (test mvzv=476) 2 /HPF BACTERIA (BEAKER) (test wxpm=461) Rare SOURCE(BEAKER) (test lauu=5185) CBC W/PLT COUNT & AUTO [id number] 06:53:00 Test Item Value Reference Range Comments WHITE BLOOD CELL COUNT (BEAKER) (test cvdy=423) 3.5 K/ L 4.0-10.0 RED BLOOD CELL COUNT (BEAKER) (test lcxc=477) 2.17 M/ L 4.20-5.80 HEMOGLOBIN (BEAKER) (test iajo=856) 7.9 GM/DL 13.0-16.8 HEMATOCRIT (BEAKER) (test rrxk=306) 23.9 % 40.0-50.0 MEAN CORPUSCULAR VOLUME (BEAKER) (test vzfn=677) 110.0 fL 82.0-98.0 MEAN CORPUSCULAR HEMOGLOBIN (BEAKER) (test 36.1 pg 27.0-33.0 btun=062) MEAN CORPUSCULAR HEMOGLOBIN CONC (BEAKER) (test 32.9 GM/DL 32.0-36.0 awzf=286) RED CELL DISTRIBUTION WIDTH (BEAKER) (test 14.0 % 10.3-14.2 rkfh=696) PLATELET COUNT (BEAKER) (test gtmd=408) 77 K/CU MM 150-430 MEAN PLATELET VOLUME (BEAKER) (test difh=557) 6.1 fL 6.5-10.5 NUCLEATED RED BLOOD CELLS (BEAKER) (test 0 /100 WBC 0-0 wipl=296) NEUTROPHILS RELATIVE PERCENT (BEAKER) (test 56 % hxwh=690) LYMPHOCYTES RELATIVE PERCENT (BEAKER) (test 20 % pldp=675) MONOCYTES RELATIVE PERCENT (BEAKER) (test 18 % hyrl=080) EOSINOPHILS RELATIVE PERCENT (BEAKER) (test 6 % utzf=248) BASOPHILS RELATIVE PERCENT (BEAKER) (test 1 % utvc=797) NEUTROPHILS ABSOLUTE COUNT (BEAKER) (test 1.95 K/ L 1.80-8.00 yluo=619) LYMPHOCYTES ABSOLUTE COUNT (BEAKER) (test 0.69 K/ L 1.48-4.50 fgwu=724) MONOCYTES ABSOLUTE COUNT (BEAKER) (test obgz=109) 0.62 K/ L 0.00-1.30 EOSINOPHILS ABSOLUTE COUNT (BEAKER) (test 0.20 K/ L 0.00-0.50 ibxa=088) BASOPHILS ABSOLUTE COUNT (BEAKER) (test euka=351) 0.03 K/ L 0.00-0.20 0.00BASI METABOLIC [id number] 06:45:00 Test Item Value Reference Range Comments SODIUM (BEAKER) (test 134 meq/L 136-145 fumq=623) POTASSIUM (BEAKER) (test 3.6 meq/L 3.5-5.1 ryxu=682) CHLORIDE (BEAKER) (test 106 meq/L 98-107 fcrz=183) CO2 (BEAKER) (test 21 meq/L 22-29 ftob=983) BLOOD UREA NITROGEN 14 mg/dL 7-21 (BEAKER) (test idrq=952) CREATININE (BEAKER) (test 1.33 mg/dL 0.57-1.25 gaxv=852) GLUCOSE RANDOM (BEAKER) 71 mg/dL 70-105 (test grwu=901) CALCIUM (BEAKER) (test 7.6 mg/dL 8.4-10.2 javi=523) EGFR (BEAKER) (test 57 mL/min/1.73 sq m ESTIMATED GFR IS NOT mhtt=1708) ACCURATE CREATININE CLEARANCE IN PREDICTING GLOMERULAR FILTRATION RATE. ESTIMATED GFR IS NOT APPLICABLE FOR DIALYSIS PATIENTS. Specimen moderately ictericHEPATIC FUNCTION [id number] 06:40:00 Test Item Value Reference Range Comments TOTAL PROTEIN (BEAKER) (test nyqz=006) 5.6 gm/dL 6.0-8.3 ALBUMIN (BEAKER) (test vxbq=7875) 2.1 g/dL 3.5-5.0 BILIRUBIN TOTAL (BEAKER) (test bijj=653) 4.4 mg/dL 0.2-1.2 BILIRUBIN DIRECT (BEAKER) (test eszb=466) 2.9 mg/dL 0.1-0.5 ALKALINE PHOSPHATASE (BEAKER) (test esmi=038) 86 U/L 40-150 AST (SGOT) (BEAKER) (test jwdr=027) 45 U/L 5-34 ALT (SGPT) (BEAKER) (test leyv=704) 13 U/L 6-55 Specimen moderately ictericPROTHROMBIN [id number] 06:05:00 Test Item Value Reference Range Comments PROTIME (BEAKER) (test lkdj=750) 29.4 seconds 11.7-14.7 INR (BEAKER) (test ouwy=128) 2.8 <=5.9 RECOMMENDED COUMADIN/WARFARIN INR THERAPY RANGESSTANDARD DOSE: 2.0 - 3.0 Includes: PROPHYLAXIS forvenous thrombosis, systemic embolization; TREATMENT for venous thrombosis and/or pulmonary embolus.HIGH RISK: Target INR is 2.5-3.5 for patients with mechanical heart valves.BODY FLUID CELL COUNT WITH [id number] 20:51:00 Test Item Value Reference Range Comments APPEARANCE FLUID (BEAKER) (test ejop=032) Slightly Hazy Clear COLOR FLUID (BEAKER) (test xcfl=796) Yellow Colorless, Straw RBC FLUID (BEAKER) (test ldtc=646) 545 /cu mm <=1 ADJUSTED WBC FLUID (BEAKER) (test ronn=7243) 104 /cu mm <=5 LINING CELLS (BEAKER) (test cesc=3546) 1 /cu mm <=1 NEUTROPHILS FLUID (BEAKER) (test vlji=8549) 3 % LYMPHS FLUID (BEAKER) (test uyxm=847) 13 % MONO/MACROPHAGE FLUID (BEAKER) (test 84 % ynum=805) EOSINOPHILS FLUID (BEAKER) (test ndfg=151) 0 % BASO FLUID (BEAKER) (test sech=140) 0 % CONTAINER BODY FLUID (BEAKER) (test EDTA Tube lgvk=3613) POCT-GLUCOSE [id number] 18:48:00 Test Item Value Reference Range Comments POC-GLUCOSE METER (BEAKER) 105 mg/dL 70-110 TESTED AT [facility] [address] [facility] (test ftwk=5509) [facility] [address] BASIC METABOLIC [id number] 05:45:00 Test Item Value Reference Range Comments SODIUM (BEAKER) (test 133 meq/L 136-145 xule=064) POTASSIUM (BEAKER) (test 4.3 meq/L 3.5-5.1 Specimen moderately ldoe=774) hemolyzed CHLORIDE (BEAKER) (test 107 meq/L 98-107 cuza=957) CO2 (BEAKER) (test 19 meq/L 22-29 fizz=201) BLOOD UREA NITROGEN 10 mg/dL 7-21 (BEAKER) (test fqyw=326) CREATININE (BEAKER) (test 0.86 mg/dL 0.57-1.25 Specimen moderately qoep=398) hemolyzed GLUCOSE RANDOM (BEAKER) 68 mg/dL 70-105 (test wgqp=920) CALCIUM (BEAKER) (test 7.5 mg/dL 8.4-10.2 giqt=755) EGFR (BEAKER) (test 94 mL/min/1.73 sq m ESTIMATED GFR IS NOT zzix=0037) ACCURATE CREATININE CLEARANCE IN PREDICTING GLOMERULAR FILTRATION RATE. ESTIMATED GFR IS NOT APPLICABLE FOR DIALYSIS PATIENTS. Specimen slightly ictericHEPATIC FUNCTION [id number] 05:45:00 Test Item Value Reference Range Comments TOTAL PROTEIN (BEAKER) (test 5.9 gm/dL 6.0-8.3 Specimen moderately hemolyzed agdq=577) ALBUMIN (BEAKER) (test 1.9 g/dL 3.5-5.0 Specimen moderately hemolyzed hksz=5321) BILIRUBIN TOTAL (BEAKER) (test 4.4 mg/dL 0.2-1.2 Specimen moderately hemolyzed vlor=952) BILIRUBIN DIRECT (BEAKER) 2.6 mg/dL 0.1-0.5 Specimen moderately hemolyzed (test pcqx=666) ALKALINE PHOSPHATASE (BEAKER) 86 U/L 40-150 (test wtjl=894) AST (SGOT) (BEAKER) (test 74 U/L 5-34 Specimen moderately hemolyzed zwvb=349) ALT (SGPT) (BEAKER) (test 17 U/L 6-55 Specimen moderately smlf=110) hemolyzed Specimen slightly ictericCBC W/PLT COUNT & AUTO [id number] 05:21 :00 Test Item Value Reference Range Comments WHITE BLOOD CELL COUNT (BEAKER) (test qktl=508) 3.5 K/ L 4.0-10.0 RED BLOOD CELL COUNT (BEAKER) (test gjpq=253) 2.06 M/ L 4.20-5.80 HEMOGLOBIN (BEAKER) (test wuma=730) 7.9 GM/DL 13.0-16.8 HEMATOCRIT (BEAKER) (test zspb=743) 22.8 % 40.0-50.0 MEAN CORPUSCULAR VOLUME (BEAKER) (test eknw=131) 110.0 fL 82.0-98.0 MEAN CORPUSCULAR HEMOGLOBIN (BEAKER) (test 38.2 pg 27.0-33.0 elem=744) MEAN CORPUSCULAR HEMOGLOBIN CONC (BEAKER) (test 34.6 GM/DL 32.0-36.0 wexm=270) RED CELL DISTRIBUTION WIDTH (BEAKER) (test 13.5 % 10.3-14.2 upix=905) PLATELET COUNT (BEAKER) (test kxuq=882) 61 K/CU MM 150-430 MEAN PLATELET VOLUME (BEAKER) (test qppk=343) 6.8 fL 6.5-10.5 NUCLEATED RED BLOOD CELLS (BEAKER) (test 0 /100 WBC 0-0 jwub=093) NEUTROPHILS RELATIVE PERCENT (BEAKER) (test 51 % cgfe=487) LYMPHOCYTES RELATIVE PERCENT (BEAKER) (test 24 % sgfm=738) MONOCYTES RELATIVE PERCENT (BEAKER) (test 18 % kmoy=659) EOSINOPHILS RELATIVE PERCENT (BEAKER) (test 7 % xmpf=333) BASOPHILS RELATIVE PERCENT (BEAKER) (test 1 % rzbb=019) NEUTROPHILS ABSOLUTE COUNT (BEAKER) (test 1.76 K/ L 1.80-8.00 vyal=657) LYMPHOCYTES ABSOLUTE COUNT (BEAKER) (test 0.85 K/ L 1.48-4.50 hwaa=437) MONOCYTES ABSOLUTE COUNT (BEAKER) (test ynly=671) 0.61 K/ L 0.00-1.30 EOSINOPHILS ABSOLUTE COUNT (BEAKER) (test 0.23 K/ L 0.00-0.50 cgxg=782) BASOPHILS ABSOLUTE COUNT (BEAKER) (test utdg=194) 0.02 K/ L 0.00-0.20 0.00PROTHROMBIN [id number] 05:19:00 Test Item Value Reference Range Comments PROTIME (BEAKER) (test fnpz=311) 28.2 seconds 11.7-14.7 INR (BEAKER) (test wjjp=006) 2.6 <=5.9 RECOMMENDED COUMADIN/WARFARIN INR THERAPY RANGESSTANDARD DOSE: 2.0 - 3.0 Includes: PROPHYLAXIS forvenous thrombosis, systemic embolization; TREATMENT for venous thrombosis and/or pulmonary embolus.HIGH RISK: Target INR is 2.5-3.5 for patients with mechanical heart valves.BODY FLUID CULTURE + GRAM [id number] 14:14:00 Test Item Value Reference Range Comments CULTURE (BEAKER) (test cqsb=2750) No growth GRAM STAIN RESULT (BEAKER) (test 2+ WBCs zkjx=2633) GRAM STAIN RESULT (BEAKER) (test No organisms seen tckx=42286) CBC W/PLT COUNT & AUTO [id number] 10:28:00 Test Item Value Reference Range Comments WHITE BLOOD CELL COUNT (BEAKER) (test bvid=359) 3.6 K/ L 4.0-10.0 RED BLOOD CELL COUNT (BEAKER) (test voxx=083) 2.17 M/ L 4.20-5.80 HEMOGLOBIN (BEAKER) (test sbem=447) 7.7 GM/DL 13.0-16.8 HEMATOCRIT (BEAKER) (test zghg=538) 23.8 % 40.0-50.0 MEAN CORPUSCULAR VOLUME (BEAKER) (test erlt=726) 110.0 fL 82.0-98.0 MEAN CORPUSCULAR HEMOGLOBIN (BEAKER) (test 35.3 pg 27.0-33.0 recz=955) MEAN CORPUSCULAR HEMOGLOBIN CONC (BEAKER) (test 32.1 GM/DL 32.0-36.0 adbp=462) RED CELL DISTRIBUTION WIDTH (BEAKER) (test 13.7 % 10.3-14.2 ldff=622) PLATELET COUNT (BEAKER) (test tnqy=721) 62 K/CU MM 150-430 MEAN PLATELET VOLUME (BEAKER) (test jxxv=711) 6.5 fL 6.5-10.5 NUCLEATED RED BLOOD CELLS (BEAKER) (test 0 /100 WBC 0-0 ioyv=368) NEUTROPHILS RELATIVE PERCENT (BEAKER) (test 58 % xlpb=260) LYMPHOCYTES RELATIVE PERCENT (BEAKER) (test 18 % nclk=793) MONOCYTES RELATIVE PERCENT (BEAKER) (test 17 % eouv=877) EOSINOPHILS RELATIVE PERCENT (BEAKER) (test 8 % bznv=050) BASOPHILS RELATIVE PERCENT (BEAKER) (test 0 % rnuh=171) NEUTROPHILS ABSOLUTE COUNT (BEAKER) (test 2.10 K/ L 1.80-8.00 kwbc=330) LYMPHOCYTES ABSOLUTE COUNT (BEAKER) (test 0.63 K/ L 1.48-4.50 miqc=403) MONOCYTES ABSOLUTE COUNT (BEAKER) (test pfgg=134) 0.59 K/ L 0.00-1.30 EOSINOPHILS ABSOLUTE COUNT (BEAKER) (test 0.28 K/ L 0.00-0.50 lxyx=705) BASOPHILS ABSOLUTE COUNT (BEAKER) (test nctl=584) 0.00 K/ L 0.00-0.20 [id number] 10:16:00 Test Item Value Reference Range Comments PROCALCITONIN (BEAKER) (test khaf=2818) < ng/mL <0.05 SEPSIS RISK (ng/mL)Low: 0.05-0.50Intermediate: 0.51-2.00High: & gt;=2.01HEPATIC FUNCTION [id number] 06:26:00 Test Item Value Reference Range Comments TOTAL PROTEIN (BEAKER) (test ceks=447) 5.6 gm/dL 6.0-8.3 ALBUMIN (BEAKER) (test fvwq=4190) 1.9 g/dL 3.5-5.0 BILIRUBIN TOTAL (BEAKER) (test kdon=726) 4.7 mg/dL 0.2-1.2 BILIRUBIN DIRECT (BEAKER) (test jiwl=982) 2.9 mg/dL 0.1-0.5 ALKALINE PHOSPHATASE (BEAKER) (test pxch=015) 85 U/L 40-150 AST (SGOT) (BEAKER) (test qmve=462) 53 U/L 5-34 ALT (SGPT) (BEAKER) (test mvqa=054) 14 U/L 6-55 Specimen moderately ictericBASIC METABOLIC [id number] 06:26:00 Test Item Value Reference Range Comments SODIUM (BEAKER) (test 134 meq/L 136-145 ikfx=657) POTASSIUM (BEAKER) (test 3.8 meq/L 3.5-5.1 xiku=483) CHLORIDE (BEAKER) (test 107 meq/L 98-107 jcqx=161) CO2 (BEAKER) (test 19 meq/L 22-29 wslm=849) BLOOD UREA NITROGEN 8 mg/dL 7-21 (BEAKER) (test ntzr=665) CREATININE (BEAKER) (test 0.73 mg/dL 0.57-1.25 hmtz=011) GLUCOSE RANDOM (BEAKER) 73 mg/dL 70-105 (test saxo=915) CALCIUM (BEAKER) (test 7.2 mg/dL 8.4-10.2 wcui=349) EGFR (BEAKER) (test 113 mL/min/1.73 sq m ESTIMATED GFR IS NOT arnd=2867) ACCURATE CREATININE CLEARANCE IN PREDICTING GLOMERULAR FILTRATION RATE. ESTIMATED GFR IS NOT APPLICABLE FOR DIALYSIS PATIENTS. Specimen moderately ictericPROTHROMBIN [id number] 06:05:00 Test Item Value Reference Range Comments PROTIME (BEAKER) (test wcgp=736) 30.9 seconds 11.7-14.7 INR (BEAKER) (test lkho=908) 3.0 <=5.9 RECOMMENDED COUMADIN/WARFARIN INR THERAPY RANGESSTANDARD DOSE: 2.0 - 3.0 Includes: PROPHYLAXIS forvenous thrombosis, systemic embolization; TREATMENT for venous thrombosis and/or pulmonary embolus.HIGH RISK: Target INR is 2.5-3.5 for patients with mechanical heart valves.[id number] 05:54:00 Test Item Value Reference Range Comments PREALBUMIN (BEAKER) (test uieg=046) < mg/dL 14-45 URINE [id number] 12:11:00 Test Item Value Reference Range Comments CULTURE (BEAKER) (test adrs=9971) No growth VANCOMYCIN LEVEL, [id number] 09:26:00 Test Item Value Reference Range Comments VANCOMYCIN TROUGH (BEAKER) (test xnnp=178) 15.3 ug/mL 10.0-20.0 HEPATIC FUNCTION [id number] 06:17:00 Test Item Value Reference Range Comments TOTAL PROTEIN (BEAKER) (test ibhb=776) 5.6 gm/dL 6.0-8.3 ALBUMIN (BEAKER) (test eotz=5740) 2.0 g/dL 3.5-5.0 BILIRUBIN TOTAL (BEAKER) (test hnbw=642) 4.2 mg/dL 0.2-1.2 BILIRUBIN DIRECT (BEAKER) (test ptzk=644) 2.7 mg/dL 0.1-0.5 ALKALINE PHOSPHATASE (BEAKER) (test xhgi=392) 98 U/L 40-150 AST (SGOT) (BEAKER) (test aahh=945) 45 U/L 5-34 ALT (SGPT) (BEAKER) (test icli=053) 12 U/L 6-55 Specimen slightly ictericBASIC METABOLIC [id number] 06:17:00 Test Item Value Reference Range Comments SODIUM (BEAKER) (test 133 meq/L 136-145 tfbv=506) POTASSIUM (BEAKER) (test 3.4 meq/L 3.5-5.1 mlds=729) CHLORIDE (BEAKER) (test 107 meq/L 98-107 owuh=679) CO2 (BEAKER) (test 22 meq/L 22-29 rgnv=893) BLOOD UREA NITROGEN 7 mg/dL 7-21 (BEAKER) (test sfkc=559) CREATININE (BEAKER) (test 0.73 mg/dL 0.57-1.25 ksqr=280) GLUCOSE RANDOM (BEAKER) 87 mg/dL 70-105 (test lutx=690) CALCIUM (BEAKER) (test 7.2 mg/dL 8.4-10.2 qiuk=665) EGFR (BEAKER) (test 113 mL/min/1.73 sq m ESTIMATED GFR IS NOT vfsx=3291) ACCURATE CREATININE CLEARANCE IN PREDICTING GLOMERULAR FILTRATION RATE. ESTIMATED GFR IS NOT APPLICABLE FOR DIALYSIS PATIENTS. Specimen slightly ictericPROTHROMBIN [id number] 06:04:00 Test Item Value Reference Range Comments PROTIME (BEAKER) (test azws=378) 31.7 seconds 11.7-14.7 INR (BEAKER) (test ahyu=455) 3.0 <=5.9 RECOMMENDED COUMADIN/WARFARIN INR THERAPY RANGESSTANDARD DOSE: 2.0 - 3.0 Includes: PROPHYLAXIS forvenous thrombosis, systemic embolization; TREATMENT for venous thrombosis and/or pulmonary embolus.HIGH RISK: Target INR is 2.5-3.5 for patients with mechanical heart valves.VITAMIN B12 AND [id number] 19:36 :00 Test Item Value Reference Range Comments VITAMIN B12 (BEAKER) (test prdt=020) 1121 pg/mL 213-816 FOLATE (BEAKER) (test zgmt=991) 18.3 ng/mL >=7.0 Effective 09/13/2014: Folate Reference Range ChangeNew: >=7.0 Previous: & gt;=5.4VITAMIN B12 AND [id number] 14:57:00 Test Item Value Reference Range Comments VITAMIN B12 (BEAKER) (test wics=588) 1325 pg/mL 213-816 FOLATE (BEAKER) (test bnpv=599) 8.3 ng/mL >=7.0 Effective 09/13/2014: Folate Reference Range ChangeNew: >=7.0 Previous: & gt;=5.4ANTI-NUCLEAR ANTIBODY (CHERYL)2017-02-03 13:56:00 Test Item Value Reference Range Comments ANTI-NUCLEAR ANTIBODY (CHERYL) (BEAKER) (test Negative Negative piqx=521) HEPATITIS B CORE ANTIBODY, [id number] 12:27:00 Test Item Value Reference Range Comments HEPATITIS B CORE TOTAL ANTIBODY (BEAKER) (test Nonreactive Nonreactive istw=164) CRYPTOCOCCAL [id number] 11:25:00 Test Item Value Reference Range Comments CRYPTOCOCCAL ANTIGEN, SERUM (BEAKER) (test Negative Negative, Interference jtij=6618) HEPATITIS B SURFACE [id number] 11:15:00 Test Item Value Reference Range Comments HEPATITIS B SURFACE ANTIBODY (BEAKER) (test < mIU/mL <8.0 npkk=426) HEPATITIS B SURFACE [id number] 09:53:00 Test Item Value Reference Range Comments HEPATITIS B SURFACE ANTIGEN (2) (BEAKER) (test Nonreactive Nonreactive wkbk=8604) HIV-1 ANTIGEN WITH HIV-1/2 [id number] 09:53:00 Test Item Value Reference Range Comments HIV-1 ANTIGEN WITH HIV 1\T\2 ANTIBODY (2) Nonreactive Nonreactive (BEAKER) (test qusg=9852) HEPATIC FUNCTION [id number] 07:01:00 Test Item Value Reference Range Comments TOTAL PROTEIN (BEAKER) (test odfn=450) 5.5 gm/dL 6.0-8.3 ALBUMIN (BEAKER) (test yxep=8854) 2.0 g/dL 3.5-5.0 BILIRUBIN TOTAL (BEAKER) (test uahj=946) 3.8 mg/dL 0.2-1.2 BILIRUBIN DIRECT (BEAKER) (test lxhm=009) 2.5 mg/dL 0.1-0.5 ALKALINE PHOSPHATASE (BEAKER) (test jieh=416) 108 U/L 40-150 AST (SGOT) (BEAKER) (test dhww=752) 40 U/L 5-34 ALT (SGPT) (BEAKER) (test oxna=982) 10 U/L 6-55 Specimen slightly ictericBASIC METABOLIC [id number] 07:01:00 Test Item Value Reference Range Comments SODIUM (BEAKER) (test 133 meq/L 136-145 apok=676) POTASSIUM (BEAKER) (test 3.7 meq/L 3.5-5.1 csie=220) CHLORIDE (BEAKER) (test 108 meq/L 98-107 upry=066) CO2 (BEAKER) (test 20 meq/L 22-29 ymhh=608) BLOOD UREA NITROGEN 7 mg/dL 7-21 (BEAKER) (test ajfp=879) CREATININE (BEAKER) (test 0.76 mg/dL 0.57-1.25 vied=306) GLUCOSE RANDOM (BEAKER) 100 mg/dL 70-105 (test evqm=013) CALCIUM (BEAKER) (test 7.3 mg/dL 8.4-10.2 udbe=068) EGFR (BEAKER) (test 108 mL/min/1.73 sq m ESTIMATED GFR IS NOT qlxd=7645) ACCURATE CREATININE CLEARANCE IN PREDICTING GLOMERULAR FILTRATION RATE. ESTIMATED GFR IS NOT APPLICABLE FOR DIALYSIS PATIENTS. Specimen slightly ictericCBC W/PLT COUNT & AUTO [id number] 06:53 :00 Test Item Value Reference Range Comments WHITE BLOOD CELL COUNT (BEAKER) (test savp=113) 3.5 K/ L 4.0-10.0 RED BLOOD CELL COUNT (BEAKER) (test iqzp=874) 1.83 M/ L 4.20-5.80 HEMOGLOBIN (BEAKER) (test bmes=085) 7.3 GM/DL 13.0-16.8 HEMATOCRIT (BEAKER) (test jhow=378) 19.9 % 40.0-50.0 MEAN CORPUSCULAR VOLUME (BEAKER) (test douq=062) 109.0 fL 82.0-98.0 MEAN CORPUSCULAR HEMOGLOBIN (BEAKER) (test 39.9 pg 27.0-33.0 dxrq=273) MEAN CORPUSCULAR HEMOGLOBIN CONC (BEAKER) (test 36.6 GM/DL 32.0-36.0 avbt=573) RED CELL DISTRIBUTION WIDTH (BEAKER) (test 14.3 % 10.3-14.2 khsp=763) PLATELET COUNT (BEAKER) (test zqqn=228) 35 K/CU MM 150-430 MEAN PLATELET VOLUME (BEAKER) (test kreg=671) 6.6 fL 6.5-10.5 NUCLEATED RED BLOOD CELLS (BEAKER) (test 0 /100 WBC 0-0 axkx=996) NEUTROPHILS RELATIVE PERCENT (BEAKER) (test 60 % zlio=009) LYMPHOCYTES RELATIVE PERCENT (BEAKER) (test 18 % znvc=511) MONOCYTES RELATIVE PERCENT (BEAKER) (test 17 % psai=064) EOSINOPHILS RELATIVE PERCENT (BEAKER) (test 6 % wrwr=780) BASOPHILS RELATIVE PERCENT (BEAKER) (test 0 % esdk=147) NEUTROPHILS ABSOLUTE COUNT (BEAKER) (test 2.06 K/ L 1.80-8.00 yrpe=449) LYMPHOCYTES ABSOLUTE COUNT (BEAKER) (test 0.61 K/ L 1.48-4.50 twzd=659) MONOCYTES ABSOLUTE COUNT (BEAKER) (test cfuv=495) 0.58 K/ L 0.00-1.30 EOSINOPHILS ABSOLUTE COUNT (BEAKER) (test 0.19 K/ L 0.00-0.50 yewc=078) BASOPHILS ABSOLUTE COUNT (BEAKER) (test keua=109) 0.01 K/ L 0.00-0.20 0.00PROTHROMBIN [id number] 06:39:00 Test Item Value Reference Range Comments PROTIME (BEAKER) (test gzws=564) 30.6 seconds 11.7-14.7 INR (BEAKER) (test eadl=281) 2.9 <=5.9 RECOMMENDED COUMADIN/WARFARIN INR THERAPY RANGESSTANDARD DOSE: 2.0 - 3.0 Includes: PROPHYLAXIS forvenous thrombosis, systemic embolization; TREATMENT for venous thrombosis and/or pulmonary embolus.HIGH RISK: Target INR is 2.5-3.5 for patients with mechanical heart valves.URINALYSIS W/ [id number] 16 :58:00 Test Item Value Reference Range Comments COLOR (BEAKER) (test hycw=323) Yellow CLARITY (BEAKER) (test alpy=808) Clear SPECIFIC GRAVITY UA (BEAKER) (test 1.025 1.001-1.035 njdh=421) PH UA (BEAKER) (test kagy=930) 7.0 5.0-8.0 PROTEIN UA (BEAKER) (test jufs=718) Negative Negative GLUCOSE UA (BEAKER) (test ornh=420) Negative Negative KETONES UA (BEAKER) (test lcda=340) Negative Negative BILIRUBIN UA (BEAKER) (test yrpa=204) Positive Negative BLOOD UA (BEAKER) (test nytb=510) Negative Negative NITRITE UA (BEAKER) (test xunn=509) Negative Negative LEUKOCYTE ESTERASE UA (BEAKER) (test Negative Negative rmvb=519) UROBILINOGEN UA (BEAKER) (test ommp=763) 8.0 mg/dL 0.2-1.0 RBC UA (BEAKER) (test vnhe=446) 0 /HPF WBC UA (BEAKER) (test fnhq=944) 2 /HPF MUCUS (BEAKER) (test xdte=1191) Rare HYALINE CASTS (BEAKER) (test eoqn=152) 3 /LPF SOURCE(BEAKER) (test nvvj=7674) Urine, Clean Catch [id number] 13:32:00 Test Item Value Reference Range Comments FERRITIN (BEAKER) (test qjdh=609) 116 ng/mL 5-275 Effective 09/13/2014: Reference Range ChangeNew: Male 5-275 Previous: Male 22-322 Female 5-275 Female 10-291HEPATITIS A ANTIBODY, [id number] 13:19:00 Test Item Value Reference Range Comments HEPATITIS A IGG ANTIBODY (BEAKER) (test pfom=0802) Reactive Nonreactive ALPHA FETOPROTEIN (AFP), TUMOR [id number] 13:17:00 Test Item Value Reference Range Comments ALPHA-FETOPROTEIN (BEAKER) (test affz=0725) 4.5 ng/mL <10.0 Effective 09/13/2014: Reference Range ChangeNew: <10.0 Previous: 0.0- 8.0HEPATITIS C [id number] 13:17:00 Test Item Value Reference Range Comments HEPATITIS C ANTIBODY (BEAKER) (test kabd=612) Nonreactive Nonreactive BODY FLUID CELL COUNT WITH [id number] 13:03:00 Test Item Value Reference Range Comments APPEARANCE FLUID (BEAKER) (test tjfr=224) Cloudy Clear COLOR FLUID (BEAKER) (test rohv=372) Yellow Colorless, Straw RBC FLUID (BEAKER) (test tltd=249) 1519 /cu mm <=1 ADJUSTED WBC FLUID (BEAKER) (test mnro=6882) 108 /cu mm <=5 LINING CELLS (BEAKER) (test cagl=0007) 14 /cu mm <=1 NEUTROPHILS FLUID (BEAKER) (test gidk=9038) 11 % LYMPHS FLUID (BEAKER) (test sjvp=728) 30 % MONO/MACROPHAGE FLUID (BEAKER) (test kfdz=990) 59 % EOSINOPHILS FLUID (BEAKER) (test xptf=100) 0 % BASO FLUID (BEAKER) (test xuvv=146) 0 % CONTAINER BODY FLUID (BEAKER) (test ezzr=7383) EDTA Tube BASIC METABOLIC [id number] 12:56:00 Test Item Value Reference Range Comments SODIUM (BEAKER) (test 131 meq/L 136-145 rnkr=098) POTASSIUM (BEAKER) (test 4.0 meq/L 3.5-5.1 Specimen moderately wjvu=300) hemolyzed CHLORIDE (BEAKER) (test 105 meq/L 98-107 uhhn=787) CO2 (BEAKER) (test 18 meq/L 22-29 wlrj=184) BLOOD UREA NITROGEN 6 mg/dL 7-21 (BEAKER) (test tjka=658) CREATININE (BEAKER) (test 0.72 mg/dL 0.57-1.25 Specimen moderately jqqp=559) hemolyzed GLUCOSE RANDOM (BEAKER) 103 mg/dL 70-105 (test vkmv=082) CALCIUM (BEAKER) (test 7.4 mg/dL 8.4-10.2 kesb=680) EGFR (BEAKER) (test 115 mL/min/1.73 sq m ESTIMATED GFR IS NOT tlwu=7498) ACCURATE CREATININE CLEARANCE IN PREDICTING GLOMERULAR FILTRATION RATE. ESTIMATED GFR IS NOT APPLICABLE FOR DIALYSIS PATIENTS. Specimen moderately ictericIRON, TIBC, % SAT. (WITHOUT FERRITIN)[id number] 12:56 :00 Test Item Value Reference Range Comments IRON (BEAKER) (test gwbv=852) 55 ug/dL 40-160 TOTAL IRON BINDING CAPACITY (BEAKER) (test 175 ug/dL 250-450 twmg=971) IRON % SATURATION (2) (BEAKER) (test dzxp=4328) 31 % 20-55 HEPATIC FUNCTION [id number] 12:50:00 Test Item Value Reference Range Comments TOTAL PROTEIN (BEAKER) (test 6.7 gm/dL 6.0-8.3 Specimen moderately hemolyzed uorx=911) ALBUMIN (BEAKER) (test 2.0 g/dL 3.5-5.0 Specimen moderately hemolyzed rrxc=0000) BILIRUBIN TOTAL (BEAKER) (test 5.1 mg/dL 0.2-1.2 Specimen moderately hemolyzed zqos=340) BILIRUBIN DIRECT (BEAKER) 2.8 mg/dL 0.1-0.5 Specimen moderately hemolyzed (test mbqq=221) ALKALINE PHOSPHATASE (BEAKER) 99 U/L 40-150 (test tsnl=762) AST (SGOT) (BEAKER) (test 62 U/L 5-34 Specimen moderately hemolyzed fsbo=312) ALT (SGPT) (BEAKER) (test 15 U/L 6-55 Specimen moderately lrof=768) hemolyzed Specimen moderately ictericCBC W/PLT COUNT & AUTO [id number] 12: 47:00 Test Item Value Reference Range Comments WHITE BLOOD CELL COUNT (BEAKER) (test qkck=732) 3.3 K/ L 4.0-10.0 RED BLOOD CELL COUNT (BEAKER) (test hemo=401) 2.08 M/ L 4.20-5.80 HEMOGLOBIN (BEAKER) (test mxvm=977) 7.8 GM/DL 13.0-16.8 HEMATOCRIT (BEAKER) (test uyks=625) 22.9 % 40.0-50.0 MEAN CORPUSCULAR VOLUME (BEAKER) (test cjao=551) 110.0 fL 82.0-98.0 MEAN CORPUSCULAR HEMOGLOBIN (BEAKER) (test 37.4 pg 27.0-33.0 pgaw=536) MEAN CORPUSCULAR HEMOGLOBIN CONC (BEAKER) (test 34.1 GM/DL 32.0-36.0 ozom=838) RED CELL DISTRIBUTION WIDTH (BEAKER) (test 15.0 % 10.3-14.2 perk=390) PLATELET COUNT (BEAKER) (test cnci=071) 48 K/CU MM 150-430 MEAN PLATELET VOLUME (BEAKER) (test hfzj=433) 6.6 fL 6.5-10.5 NUCLEATED RED BLOOD CELLS (BEAKER) (test 0 /100 WBC 0-0 juid=776) NEUTROPHILS RELATIVE PERCENT (BEAKER) (test 62 % gthk=784) LYMPHOCYTES RELATIVE PERCENT (BEAKER) (test 17 % qcme=845) MONOCYTES RELATIVE PERCENT (BEAKER) (test 15 % xxdn=753) EOSINOPHILS RELATIVE PERCENT (BEAKER) (test 6 % piyt=659) BASOPHILS RELATIVE PERCENT (BEAKER) (test 0 % gfwc=521) NEUTROPHILS ABSOLUTE COUNT (BEAKER) (test 2.03 K/ L 1.80-8.00 fzto=091) LYMPHOCYTES ABSOLUTE COUNT (BEAKER) (test 0.57 K/ L 1.48-4.50 keno=537) MONOCYTES ABSOLUTE COUNT (BEAKER) (test uwxz=633) 0.48 K/ L 0.00-1.30 EOSINOPHILS ABSOLUTE COUNT (BEAKER) (test 0.19 K/ L 0.00-0.50 rclt=995) BASOPHILS ABSOLUTE COUNT (BEAKER) (test pyju=882) 0.01 K/ L 0.00-0.20 0.00PROTHROMBIN [id number] 12:42:00 Test Item Value Reference Range Comments PROTIME (BEAKER) (test onvh=640) 27.0 seconds 11.7-14.7 INR (BEAKER) (test wtuf=608) 2.5 <=5.9 RECOMMENDED COUMADIN/WARFARIN INR THERAPY RANGESSTANDARD DOSE: 2.0 - 3.0 Includes: PROPHYLAXIS forvenous thrombosis, systemic embolization; TREATMENT for venous thrombosis and/or pulmonary embolus.HIGH RISK: Target INR is 2.5-3.5 for patients with mechanical heart valves.ALBUMIN, BODY [id number] 11:46:00 Test Item Value Reference Range Comments ALBUMIN FLUID (BEAKER) (test grya=800) 0.5 gm/dL Reference Range: No Normals Assay performance has not been validated for this type of specimen.PROTEIN, BODY [id number] 11:42:00 Test Item Value Reference Range Comments PROTEIN FLUID (BEAKER) (test eleh=575) 1.3 g/dL Absence of reference range indicates that normals have not been defined.Assay performance has not been validated for this type of specimen.
--- NOTE | 2018-01-15 00:54 | EDPHYS ---
Physician Documentation [facility] Name: Abhishek Davis Age: 52 yrs Sex: Male : 1965 Arrival Date: 01/14/2018 Time: 23:33 Bed 27 Private MD: [facility] ED Physician Stanislaw Stratton HPI: 01/15 17:32 This 52 yrs old Male presents to ER via Wheelchair with complaints of snw Abdominal Distention, Abdominal Pain. 17:32 The patient presents with abdominal distention that is diffuse. Onset: The snw symptoms/episode began/occurred gradually, 2 week(s) ago, and became persistent. The symptoms do not radiate. Associated signs and symptoms: Pertinent positives: pressure. The symptoms are described as steady. The patient has experienced similar episodes in the past. [place]'d from [place] ago. Pt requests paracentesis. Historical: - Allergies: 01/14 23:55 No Known Allergies; bb - Home Meds: 23:55 Lactulose Oral 3 times per day [Active]; midodrine Oral 3 times per day [Active]; bb ursodiol 300 mg Oral cap 2 cap 2 times per day [Active]; Xifaxan 550 mg Oral tab 1 tab 2 times per day [Active]; Hydrocortisone Oral [Active]; Hydroxyzine Oral [Active]; mag oxide [Active]; - PMHx: 23:55 Anemia; Cirrhosis; KIDNEY INSUFF; Umbilical hernia; bb - PSHx: 23:55 Hernia repair; bb - Immunization history:: Adult Immunizations up to date. - Social history:: Smoking status: Patient/guardian denies using tobacco, Patient/guardian denies using alcohol, street drugs. ROS: 01/15 17:32 Constitutional: Negative for fever, chills, and weight loss, Eyes: Negative for injury, snw pain, redness, and discharge, ENT: Negative for injury, pain, and discharge, Neck: Negative for injury, pain, and swelling, Cardiovascular: Negative for chest pain, palpitations, and edema, Respiratory: Negative for shortness of breath, cough, wheezing, and pleuritic chest pain, Back: Negative for injury and pain, : Negative for injury, bleeding, discharge, and swelling, MS/Extremity: Negative for injury and deformity, Skin: Negative for injury, rash, and discoloration, Neuro: Negative for headache, weakness, numbness, tingling, and seizure. Abdomen/GI: Positive for abdominal pain, abdominal distension. Exam: 17:34 Constitutional: This is a well developed, well nourished patient who is awake, alert, snw and in no acute distress. Head/Face: Normocephalic, atraumatic. Eyes: Pupils equal round and reactive to light, extra-ocular motions intact. Lids and lashes normal. Conjunctiva and sclera are icteric and not injected. Cornea within normal limits. Periorbital areas with no swelling, redness, or edema. ENT: Nares patent. No nasal discharge, no septal abnormalities noted. Tympanic membranes are normal and external auditory canals are clear. Oropharynx with no redness, swelling, or masses, exudates, or evidence of obstruction, uvula midline. Mucous membranes moist. Neck: Trachea midline, no thyromegaly or masses palpated, and no cervical lymphadenopathy. Supple, full range of motion without nuchal rigidity, or vertebral point tenderness. No Meningismus. Chest/axilla: Normal chest wall appearance and motion. Nontender with no deformity. No lesions are appreciated. Cardiovascular: Regular rate and rhythm with a normal S1 and S2. No gallops, murmurs, or rubs. Normal PMI, no JVD. No pulse deficits. Respiratory: Lungs have equal breath sounds bilaterally, clear to auscultation and percussion. No rales, rhonchi or wheezes noted. No increased work of breathing, no retractions or nasal flaring. Back: No spinal tenderness. No costovertebral tenderness. Full range of motion. Skin: Warm, dry with normal turgor. Pale with no rashes, no lesions, and no evidence of cellulitis. MS/ Extremity: Pulses equal, no cyanosis. Neurovascular intact. Full, normal range of motion. Neuro: Awake and alert, GCS 15, oriented to person, place, time, and situation. Cranial nerves II-XII grossly intact. Motor strength 5/5 in all extremities. Sensory grossly intact. Cerebellar exam normal. Normal gait. 17:34 Abdomen/GI: Inspection: distension, that is moderate, that is severe, Bowel sounds: normal, Palpation: nontender, in all quadrants, mild abdominal tenderness. Vital Signs: 01/14 23:55 BP 115 / 95; Pulse 79; Resp 20 S; Pulse Ox 100% on R/A; Weight 71.67 kg (R); Height 6 bb ft. 0 in. (182.88 cm) (R); Pain 10/10; 01/15 00:36 Temp 98.7(O); kb1 00:41 BP 121 / 97; Pulse 80; Resp 18; Pulse Ox 100% ; kb1 01:09 BP 126 / 92; Pulse 75; Resp 20; Pulse Ox 99% ; kb1 01/14 23:55 Body Mass Index 21.43 (71.67 kg, 182.88 cm) bb MDM: 00:46 Patient medically screened. snw 17:35 Data reviewed: vital signs, nurses notes. Data interpreted: Pulse oximetry: on room air snw is 99 %. Interpretation: normal. Counseling: I had a detailed discussion with the patient and/or guardian regarding: the historical points, exam findings, and any diagnostic results supporting the discharge/admit diagnosis, the presence of at least one elevated blood pressure reading (>120/80) during this emergency department visit, the need for outpatient follow up, to return to the emergency department if symptoms worsen or persist or if there are any questions or concerns that arise at home. Special discussion: Based on the history and exam findings, there is no indication for further emergent testing or inpatient evaluation. I discussed with the patient/guardian the need to see the primary care provider for further evaluation of the symptoms. IR. Administered Medications: 01:02 CANCELLED (other intervention used): fentaNYL (PF) 50 mcg IM once snw 01:08 Drug: morphine 8 mg Route: IM; Site: right deltoid; kb1 01:37 Follow up: Response: No adverse reaction; Pain is decreased kb1 Disposition: 01/15/18 00:54 Discharged to Home. Impression: Ascites. - Condition is Fair. - Discharge Instructions: Paracentesis. - Medication Reconciliation Form, Thank You Letter, Antibiotic Education, Prescription Opioid Use form. - Follow up: Carlos Payne DO; When: Tomorrow; Reason: Recheck today's complaints, Continuance of care, Re-evaluation by your physician. Follow up: Emergency Department; When: As needed; Reason: Trouble breathing, Worsening of condition. - Problem is chronic. - Symptoms are unchanged. Addendum: 01/16/2018 14:45 Co-signature as Attending Physician, Stanislaw Stratton MD I agree with the assessment and c preston plan of care. Signatures: Stanislaw Stratton MD MD cha Therrien, Shelly, [employer]ICER-C [employer]ER-Csnw Andie Martin, RN RN bb Olga Lidia Haney RN RN kb1 Corrections: (The following items were deleted from the chart) 01/15 01:02 00:53 fentaNYL (PF) 50 mcg IM once ordered. snw snw
--- NOTE | 2018-01-15 00:54 | ER ---
Nurse's Notes [facility] Name: Abhishek Davis Age: 52 yrs Sex: Male : 1965 Arrival Date: 01/14/2018 Time: 23:33 Bed 27 Private MD: Carlos Payne Diagnosis: Ascites Presentation: 01/14 23:52 Presenting complaint: Patient states: he has been home for approx one week from [facility] for same problem with distended abdomen due to liver disease, abdomen is distended, painful and he is having difficulty breathing. Transition of care: patient was not received from another setting of care. Onset of symptoms was January 14, 2018. Care prior to arrival: None. 23:52 Method Of Arrival: Wheelchair 23:52 Acuity: KACEY 2 bb Historical: - Allergies: 23:55 No Known Allergies; bb - Home Meds: 23:55 Lactulose Oral 3 times per day [Active]; midodrine Oral 3 times per day [Active]; bb ursodiol 300 mg Oral cap 2 cap 2 times per day [Active]; Xifaxan 550 mg Oral tab 1 tab 2 times per day [Active]; Hydrocortisone Oral [Active]; Hydroxyzine Oral [Active]; mag oxide [Active]; - PMHx: 23:55 Anemia; Cirrhosis; KIDNEY INSUFF; Umbilical hernia; bb - PSHx: 23:55 Hernia repair; bb - Immunization history:: Adult Immunizations up to date. - Social history:: Smoking status: Patient/guardian denies using tobacco, Patient/guardian denies using alcohol, street drugs. Screenin/22 00:36 Abuse screen: Denies threats or abuse. Nutritional screening: No deficits noted. kb1 Tuberculosis screening: No symptoms or risk factors identified. Fall Risk None identified. Assessment: 00:36 General: Appears in no apparent distress. Behavior is calm, cooperative. Pain: kb1 Complains of pain in abdomen. Neuro: Level of Consciousness is awake, alert, obeys commands, Oriented to person, place, time, situation. Cardiovascular: Patient's skin is warm and dry. Respiratory: Airway is patent Respiratory effort is even, unlabored, Respiratory pattern is regular, symmetrical. GI: Bowel sounds present X 4 quads. firm Reports nausea, hx of cirrhosis. : No signs and/or symptoms were reported regarding the genitourinary system. Derm: Skin is jaundiced. 01:08 Reassessment: Patient appears in no apparent distress at this time. Patient and/or kb1 family updated on plan of care and expected duration. Pain level reassessed. Patient is alert, oriented x 3, equal unlabored respirations, skin warm/dry/pink. Vital Signs: 01/14 23:55 BP 115 / 95; Pulse 79; Resp 20 S; Pulse Ox 100% on R/A; Weight 71.67 kg (R); Height 6 bb ft. 0 in. (182.88 cm) (R); Pain 10/10; 01/15 00:36 Temp 98.7(O); kb1 00:41 BP 121 / 97; Pulse 80; Resp 18; Pulse Ox 100% ; kb1 01:09 BP 126 / 92; Pulse 75; Resp 20; Pulse Ox 99% ; kb1 01/14 23:55 Body Mass Index 21.43 (71.67 kg, 182.88 cm) ED Course: 01/14 23:33 Patient arrived in ED. am2 23:33 Carlos Payne DO is Private Physician. am2 23:43 Olga Lidia Haney, RN is Primary Nurse. kb1 23:54 Triage completed. bb 23:55 Arm band placed on Patient placed in an exam room, on a stretcher, on pulse oximetry. bb Family accompanied patient. 01/15 00:36 Patient has correct armband on for positive identification. Bed in low position. Call kb1 light in reach. Side rails up X 1. nurse monitoring on. Pulse ox on. NIBP on. 00:36 No provider procedures requiring assistance completed. kb1 00:46 [facility] snw 00:46 Stanislaw Stratton MD is Attending Physician. snw 00:53 Carlos Payne DO is Referral Physician. snw 01:38 Patient did not have IV access during this emergency room visit. kb1 Administered Medications: 01:02 CANCELLED (other intervention used): fentaNYL (PF) 50 mcg IM once snw 01:08 Drug: morphine 8 mg Route: IM; Site: right deltoid; kb1 01:37 Follow up: Response: No adverse reaction; Pain is decreased kb1 Outcome: 00:54 Discharge ordered by . snw 01:37 Discharged to home ambulatory, via wheelchair, with family. kb1 01:37 Condition: stable 01:37 Discharge instructions given to patient, Instructed on discharge instructions, follow up and referral plans. Demonstrated understanding of instructions, follow-up care. 01:38 Patient left the ED. kb1 Signatures: Rima Mack, APPLICATIONS PROGRAMMER ANALYST-C APPLICATIONS PROGRAMMER ANALYST-Csnw Andie Martin RN RN Breanna Ocampo Kristina, RN RN kb1
[2018-01-15] MEDS ORDERED: MORPHINE 10 MG/ML VIAL ONE (01:22)
[2018-01-15 01:56] VITALS: TEMP 98.7
[2018-01-15 01:58] VITALS: BP 126/92; O2SAT 99
== END 2018-01-15 01:38 | disposition home or self-care (01) ==
LOC: ER 23:32
DX: R18.8 Other ascites
CPT/HCPCS: 96372; 99284

== ENCOUNTER 2018-02-13 22:59 | Observation (INO) | payer MEDICAID ==
--- OUTSIDE RECORDS SUMMARY | 2018-02-13 23:03 | XMS REPORT | Clinical Summary ---
:1965 Author Organization [facility] Address [address] [place] [address] Phone Care Team Providers Name Role Phone Unavailable Primary Care Provider Unavailable Allergies No Known Allergies Current Medications Prescription Sig. Disp. Refills Start Date End Date Status multivitamin Take 1 tablet 90 tablet 3 02/18/2017 Active (THERAGRAN) tablet by mouth 8 daily. folic acid (FOLVITE) Take 1 tablet 90 tablet 3 02/18/2017 Active 1 MG tablet (1 mg total) 8 by mouth daily. citalopram (CELEXA) Take 10 mg by Active 10 MG mouth daily. tabletIndications: Alcoholic cirrhosis of liver with ascites (HCC) furosemide (LASIX) Take 1 tablet 30 tablet 3 02/03/2018 Active 40 MG (40 mg total) 9 tabletIndications: by mouth Alcoholic cirrhosis daily. of liver with ascites (HCC), Portal hypertensive gastropathy (HCC) furosemide (LASIX) Take 1 tablet 30 tablet 2 02/18/2017 Discontinued 20 MG tablet (20 mg total) 8 by mouth daily. lactulose Take 20 g by Discontinued (CHRONULAC) 20 mouth 3 8 gram/30 mL (three) times solutionIndications: daily. Alcoholic cirrhosis of liver with ascites (HCC) pantoprazole Take 40 mg by Discontinued (PROTONIX) 40 MG mouth daily. 8 tabletIndications: Alcoholic cirrhosis of liver with ascites (HCC) spironolactone Take 50 mg by Discontinued (ALDACTONE) 50 MG mouth 2 (two) 8 tabletIndications: times daily. Alcoholic cirrhosis of liver with ascites (HCC) ciprofloxacin HCl Take 1 tablet 4 tablet 0 09/05/2017 (CIPRO) 500 MG (500 mg 7 tablet total) by mouth once a week for 28 days. furosemide (LASIX) Take 1 tablet 30 tablet 0 09/06/2017 Discontinued 20 MG tablet (20 mg total) 8 by mouth daily. lactulose Take 30 mLs 3000 mL 0 09/05/2017 Discontinued (CHRONULAC) 20 (20 g total) 8 gram/30 mL solution by mouth 3 (three) times daily. spironolactone Take 1 tablet 30 tablet 0 09/05/2017 Discontinued (ALDACTONE) 50 MG (50 mg total) 8 tablet by mouth 2 (two) times daily. midodrine Take 1 tablet 90 tablet 1 01/06/2018 (PROAMATINE) 5 MG (5 mg total) 8 tablet by mouth 3 (three) times daily for 30 days. hydrOXYzine (ATARAX) Take 1 tablet 30 tablet 0 01/06/2018 10 MG tablet (10 mg total) 8 by mouth 4 (four) times daily as needed for Itching for up to 10 days. hydrocortisone Take 1 tablet 30 tablet 1 01/06/2018 (CORTEF) 20 MG (20 mg total) 8 tablet by mouth daily for 30 days. hydrocortisone Take 1 tablet 30 tablet 1 01/06/2018 (CORTEF) 10 MG (10 mg total) 8 tablet by mouth nightly for 30 days. lactulose Take 30 mLs 2700 mL 1 01/06/2018 Discontinued (CHRONULAC) 20 (20 g total) 8 gram/30 mL solution by mouth 3 (three) times daily for 30 days. ursodiol (ACTIGALL) Take 300 mg Discontinued 300 mg capsule by mouth 3 8 (three) times daily. ursodiol (ACTIGALL) Take 1 90 capsule 1 01/06/2018 300 mg capsule capsule (300 8 mg total) by mouth 3 (three) times daily for 30 days. lactulose Take 30 mLs 300 mL 1 01/08/2018 Discontinued (CHRONULAC) 20 (20 g total) 8 gram/30 mL by mouth 3 solutionIndications: (three) times Alcoholic cirrhosis daily. of liver with ascites (HCC) pantoprazole Take 1 tablet 30 tablet 1 01/08/2018 (PROTONIX) 40 MG (40 mg total) 8 tabletIndications: by mouth Alcoholic cirrhosis daily for 30 of liver with days. ascites (HCC) Active Problems Problem Noted Date Pancytopenia (HCC) 01/05/2018 Sarcopenia 01/05/2018 Portal hypertensive gastropathy (HCC) 01/05/2018 Hyponatremia 01/05/2018 Hyperkalemia 01/05/2018 Hypotension 01/05/[address] scan, chest 01/05/2018 H/O alcohol abuse 01/05/2018 Adrenal insufficiency (HCC) 01/05/2018 POLLY (acute kidney injury) (HCC) 12/29/2017 Liver failure (HCC) 12/27/2017 Symptomatic anemia 09/03/2017 Acute kidney injury (HCC) 02/07/2017 Ascites 02/02/2017 Tachycardia 02/02/2017 Alcoholic cirrhosis of liver with ascites (HCC) 02/02/2017 Fever 02/02/2017 Resolved Problems Problem Noted Date Resolved Date Alcohol abuse 02/02/2017 07/24/2017 Encounters Date Type Specialty Care Team Description Telephone Transplant Hepatology Ade Arriaga Follow-up 8 NIYA Seals Telephone Transplant Hepatology Meggan Erickson Appointment ( LVM. 8 E Calling to confirm 03/03 clinic appt w/pt.) Follow-Up Transplant Hepatology Kasi Franklin Itching (Primary 8 MD Gavi Dx);Abnormal CT scan, Woody Malave chest;Acute kidney MD Noman injury (HCC);Alcoholic cirrhosis of liver with ascites (HCC);Other ascites;Portal hypertensive gastropathy (HCC);Sarcopenia Telephone Transplant Hepatology Meggan Erickson Appointment ( LVM. 8 E Calling too confirm 02/03 clinic appt.) Abstract Transplant Hepatology Mohini Nair 8 Documentation Transplant Hepatology Ade Arriaga 8 Bozena, RN Telephone Transplant Hepatology Meggan Erickson Appointment ( LVM. 8 E Calling to confirm 02/03 clinic appt. Itinerary mailed.) Telephone Transplant Hepatology Meggan Erickson 8 E Procedure Pass Gastroenterology 8 Surgery Gastroenterology Jarred Kumari, UPPER ENDOSCOPY 8 Anesthesia Event Gastroenterology Balbir Siegel 8 SHIV Gardner Procedure Pass 8 Documentation Transplant Hepatology Law Mohini R 8 Documentation Transplant Hepatology Mohini Nair R 8 Orders Only General Internal 8 Medicine Abstract Transplant Hepatology Karina Benton 8 MD Hospital Encounter General Internal Brann, Alcoholic cirrhosis 8 - Medicine Michelopher of liver with ascites MD Ghanshyam (HCC) (Primary 8 Tirukkovallfabiola, Dx);Other ascites;POLLY MD Gilda (acute kidney injury) Tyler, (HCC);Portal MD Lesa hypertension Cyrus Benitez, (HCC);Acute kidney MD injury (HCC);Symptomatic anemia;Tachycardia;Ga strointestinal hemorrhage, unspecified gastrointestinal hemorrhage type;Chronic liver failure with hepatic coma (HCC);Abnormal findings on diagnostic imaging of lung;Pancytopenia (HCC);Splenomegaly;Im mune to hepatitis A;Immunization counseling Telephone Critical Care German Holm, Transfer to MICU: 7 Medicine Sepsis with hypotension in liver cirrhosis Telephone Hepatology Bree Dejesus call 7 [facility] Encounter General Internal Ramu Aguila Acute kidney injury 7 - Medicine MD Jj (HCC);Ascites due to Lacie Calderon alcoholic cirrhosis 7 MD Rea (HCC);Other Martha, ascites;Symptomatic Yashash-D anemia;Tachycardia;Al coholic cirrhosis of liver with ascites (HCC) Abstract Transplant Hepatology Ade Arriaga 7 Bozena, RN Documentation Transplant Hepatology Ade Arriaga RN Abstract Transplant Hepatology Ade Arriaga, NIYA Telephone Hepatology Bree Dejesus call 7 [facility] Office Visit Hepatology Kasi Franklin Alcoholic cirrhosis 7 MD Gavi of liver with ascites Suraj, Rise (HCC) (Primary J, MD Dx);Other ascites;History of alcohol use;Esophageal varices without bleeding, unspecified esophageal varices type (HCC);Screening for malignant neoplasm;Hyponatremia Abstract Transplant Hepatology Karina Benton 7 MD Telephone Hepatology Brigitte Man Appointment 7 Orders Only Hepatology Sesay, Alcoholic cirrhosis 7 NIYA Palm of liver with ascites (HCC) (Primary Dx) Hospital Encounter Radiology Michael Davison, Canceled (Patient) 7 Orders Only Hepatology Kiki Carrasquillo Other ascites 7 PAUL Marinelli (Primary Dx) Abstract Transplant Hepatology Ade Arriaga, NIYA Hospital Encounter General Internal Lucina, [facility] Alcoholic cirrhosis 7 - Medicine MD Francesca of liver with ascites Christelle Estrada (HCC);Coagulopathy Sugar Parks MD (HCC);Thrombocytopeni rey Leary (HCC);Generalized Regina Shannon MD abdominal pain;Fever, Yara, Artis, unspecified fever MD cause;Alcohol abuse;Other ascites;Ascites due to alcoholic hepatitis;Macrocytic anemia;Portal hypertension (HCC);POLLY (acute kidney injury) (HCC);Acute kidney injury (HCC);Jaundice;Umbili marcus hernia, incarcerated;Ascites due to alcoholic cirrhosis (HCC);S/P hernia repair after 02/12/2017 Immunizations Name Dates Previously Given Next Due Hepatitis B Dialysis Or Immunosupressed 3-Dose IM 01/02/2018 Family History Medical History Relation Name Comments Diabetes Father Relation Name Status Comments Father Social History Tobacco Use Types Packs/Day Years Used Date Former Smoker Alcohol Use Drinks/Week oz/Week Comments Yes 6 Cans of beer 3.6 Sex Assigned at Date Recorded Not on file Last Filed Vital Signs Vital Sign Reading Time Taken Blood Pressure 129/87 02/03/2018 9:52 AM CDT Pulse 92 02/03/2018 9:52 AM CDT Temperature 37.1 C (98.7 F) 02/03/2018 9:52 AM CDT Respiratory Rate 18 02/03/2018 9:52 AM CDT Oxygen Saturation 97% 02/03/2018 9:52 AM CDT Inhaled Oxygen Concentration - - Weight 87.5 kg (192 lb 12.8 oz) 02/03/2018 9:52 AM CDT Height 182.9 cm (6') 02/03/2018 9:52 AM CDT Body Mass Index 26.15 02/03/2018 9:52 AM CDT Plan of Treatment Date Type Specialty Care Team Description 02/23/2018 Surgery Rinku R & L CATH / MD Tom CORONARY ANGIOS (+/- [address] [place], [place] [id number] 02/23/2018 Procedure Pass 02/23/2018 Hospital Encounter Tom Dobbs MD [address] [place], [place] [id number] 03/03/2018 Follow-Up Transplant Hepatology Health Maintenance Due Date Last Done Comments INFLUENZA VACCINE 07/27/2018 Procedures Procedure Name Priority Date/Time Associated Diagnosis Comments COLONOSCOPY 01/02/2018 9:00 AM SAFETY COMPANION Other iron deficiency anemia UPPER ENDOSCOPY 01/02/2018 9:00 AM SAFETY COMPANION Other iron deficiency anemia after 02/12/2017 Results CBC with platelet count + automated diff (02/03/2018 1:58 PM)Only the most recent of22 resultswithin the time period is included. Component Value Ref Range WBC 5.5 3.5 - 10.5 K/L RBC 2.84 (L) 4.63 - 6.08 M/L Hemoglobin 9.5 (L) 13.7 - 17.5 GM/DL Hematocrit 28.8 (L) 40.1 - 51.0 % MCV 101.4 (H) 79.0 - 92.2 fL MCH 33.5 (H) 25.7 - 32.2 pg MCHC 33.0 32.3 - 36.5 GM/DL RDW 19.4 (H) 11.6 - 14.4 % Platelets 65 (L) 150 - 450 K/CU MM MPV 8.8 (L) 9.4 - 12.4 fL nRBC 0 0 - 0 /100 WBC % Neutros 66 % % Lymphs 14 % % Monos 15 % % Eos 4 % % Baso 0 % # Neutros 3.58 1.78 - 5.38 K/L # Lymphs 0.78 (L) 1.32 - 3.57 K/L # Monos 0.79 0.30 - 0.82 K/L # Eos 0.23 0.04 - 0.54 K/L # Baso 0.02 0.01 - 0.08 K/L Immature Granulocytes-Relative 1 0 - 1 % Specimen Performing Laboratory Blood [address] [address] Prothrombin time/INR (02/03/2018 1:58 PM)Only the most recent of19 resultswithin the time period is included. Component Value Ref Range Protime 19.1 (H) 11.7 - 14.7 seconds INR 1.6 <=5.9 Specimen Performing Laboratory Blood [address] [address] Narrative RECOMMENDED COUMADIN/WARFARIN INR THERAPY RANGES STANDARD DOSE: 2.0 - 3.0 Includes: PROPHYLAXIS for venous thrombosis, systemic embolization; TREATMENT for venous thrombosis and/or pulmonary embolus. HIGH RISK: Target INR is 2.5-3.5 for patients with mechanical heart valves. CBC with platelet count + automated diff (02/03/2018 1:58 PM)Only the most recent of22 resultswithin the time period is included. Specimen Performing Laboratory Blood [facility] ([facility]) Narrative The following orders were created for panel order CBC with platelet count + automated diff. Procedure Abnormality Status --------- ------ CBC with platelet count ...[[id number]]AbnormalFinal result Please view results for these tests on the individual orders. Bilirubin, direct (02/03/2018 1:58 PM)Only the most recent of2 resultswithin the time period is included. Component Value Ref Range Bilirubin, Direct 3.0 (H) 0.1 - 0.5 mg/dL Specimen Performing Laboratory Blood [address] [address] Comprehensive metabolic panel (02/03/2018 1:58 PM)Only the most recent of9 resultswithin the time period is included. Component Value Ref Range Protein, Total 6.5 6.0 - 8.3 gm/dL Albumin 3.7 3.5 - 5.0 g/dL Alkaline Phosphatase 135 40 - 150 U/L Total Bilirubin 4.5 (H) 0.2 - 1.2 mg/dL Sodium 131 (L) 136 - 145 meq/L Potassium 5.8 (H) 3.5 - 5.1 meq/L Chloride 103 98 - 107 meq/L CO2 24 22 - 29 meq/L BUN 27 (H) 7 - 21 mg/dL Creatinine 1.17 0.57 - 1.25 mg/dL Glucose 111 (H) 70 - 105 mg/dL Calcium 11.0 (H) 8.4 - 10.2 mg/dL AST 28 5 - 34 U/L ALT 19 6 - 55 U/L EGFR 65Comment: ESTIMATED GFR IS NOT ACCURATE mL/min/1.73 sq m CREATININE CLEARANCE IN PREDICTING GLOMERULAR FILTRATION RATE. ESTIMATED GFR IS NOT APPLICABLE FOR DIALYSIS PATIENTS. Specimen Performing Laboratory Blood [address] [address] Narrative Specimen slightly icteric EKG-SCANNED (01/08/2018 10:12 AM)XR knee complete 4 views right (01/06/2018 10: 06 AM) Specimen Performing Laboratory GE RIS Narrative FINAL REPORT Bilateral knee series INDICATION: Fall, pain COMPARISON: None available IMPRESSION: Four images of the right knee and four images of the left knee are provided. The bones appear demineralized. No evident acute fracture or dislocation is seen bilaterally. Mild joint space loss suggests degenerative arthritic changes. Small knee joint effusions are suspected. There are extensive bilateral vascular calcifications. Signed: Armin Quezada MD Report Verified Date/Time:01/06/2018 11:15:08 Reading Location: [facility] Radiology Reading Room Procedure Note Interface, External Ris In - 01/06/2018 12:29 PM CDT FINAL REPORT Bilateral knee series INDICATION: Fall, pain COMPARISON: None available IMPRESSION: Four images of the right knee and four images of the left knee are provided. The bones appear demineralized. No evident acute fracture or dislocation is seen bilaterally. Mild joint space loss suggests degenerative arthritic changes. Small knee joint effusions are suspected. There are extensive bilateral vascular calcifications. Signed: Armin Quezada MD Report Verified Date/Time: 01/06/2018 11:15:08 Reading Location: [facility] Radiology Reading Room knee complete 4 views left (01/06/2018 10:06 AM) Specimen Performing Laboratory GE RIS Narrative FINAL REPORT Bilateral knee series INDICATION: Fall, pain COMPARISON: None available IMPRESSION: Four images of the right knee and four images of the left knee are provided. The bones appear demineralized. No evident acute fracture or dislocation is seen bilaterally. Mild joint space loss suggests degenerative arthritic changes. Small knee joint effusions are suspected. There are extensive bilateral vascular calcifications. Signed: Armin Quezada MD Report Verified Date/Time:01/06/2018 11:15:08 Reading Location: [facility] Radiology Reading Room Procedure Note Interface, External Ris In - 01/06/2018 12:29 PM CDT FINAL REPORT Bilateral knee series INDICATION: Fall, pain COMPARISON: None available IMPRESSION: Four images of the right knee and four images of the left knee are provided. The bones appear demineralized. No evident acute fracture or dislocation is seen bilaterally. Mild joint space loss suggests degenerative arthritic changes. Small knee joint effusions are suspected. There are extensive bilateral vascular calcifications. Signed: Armin Quezada MD Report Verified Date/Time: 01/06/2018 11:15:08 Reading Location: [facility] Radiology Reading Room Calcium, Ionized (01/06/2018 5:16 AM)Only the most recent of10 resultswithin the time period is included. Component Value Ref Range Calcium, Ion 1.11 (L) 1.12 - 1.27 mmol/L pH, Blood 7.53 Specimen Performing Laboratory Blood - Arm, [address] [address] Phosphorus (01/06/2018 5:16 AM)Only the most recent of11 resultswithin the time period is included. Component Value Ref Range Phosphorus 3.6 2.3 - 4.7 mg/dL Specimen Performing Laboratory Blood - [place], [address] [address] Magnesium (01/06/2018 5:16 AM)Only the most recent of12 resultswithin the time period is included. Component Value Ref Range Magnesium 2.0 1.6 - 2.6 mg/dL Specimen Performing Laboratory Blood - [place], [address] [address] Basic Metabolic Panel (01/06/2018 5:16 AM)Only the most recent of14 resultswithin the time period is included. Component Value Ref Range Sodium 130 (L) 136 - 145 meq/L Potassium 4.4 3.5 - 5.1 meq/L Chloride 100 98 - 107 meq/L CO2 23 22 - 29 meq/L BUN 21 7 - 21 mg/dL Creatinine 1.11 0.57 - 1.25 mg/dL Glucose 120 (H) 70 - 105 mg/dL Calcium 9.4 8.4 - 10.2 mg/dL EGFR 70Comment: ESTIMATED GFR IS NOT ACCURATE mL/min/1.73 sq m CREATININE CLEARANCE IN PREDICTING GLOMERULAR FILTRATION RATE. ESTIMATED GFR IS NOT APPLICABLE FOR DIALYSIS PATIENTS. Specimen Performing Laboratory Blood - [place], [address] [address] Narrative Specimen slightly icteric Cortisol, 60 minutes (01/05/2018 10:14 PM) Component Value Ref Range Cortisol, Baseline 4.8 mcg/dL Cortisol 30 minute 9.2 mcg/dL Cortisol, 60 Minute 12.6 ug/dL Specimen Performing Laboratory Blood - [place], [address] [address] Narrative ACTH STIMULATION TEST INTERPRETATION GUIDELINES (Synonyms: Cortrosyn Test, Cosyntropin or Corticotropin Stimulation Test) Adenocorticotropic hormone (ACTH)is a tropic hormone, made in the pituitary gland, which travels trhough the bloodstream and stimulates the cortex of the adrenal glands to release cortisol. Cortisol is a primary hormone, which aids the body's metabolism of fats, carbohydrates, and protein as well as sodium and potassium regulation. ACTH Stimulation Test: Exogenous administration of biologically active ACTH stimulates the secretion of cortisol from the adrenal gland. This test is used to evaluate adrenal function by measuring cortisol levels at baseline and at 30 and 60 minutes after the administration of 250 micrograms of cosyntropin (Cortrosyn). Patients who have received exogenous corticosteroids immediately prior to performing the ACTH Stimulation Test will often have elevated baseline cortisol levels, which may lead to erroneous interpretation of test results. The notable exception is with dexamethasone. Normal Response: An increase in cortisol after stimulation by ACTH is normal. Post-stimulation cortisol concentration should be greater than 20 mcg/dL or the rate of rise from baseline cortisol should be greater than or equal to 9 mcg/dL. Patients with sepsis or septic shock: According to a study by Mindy et al ( NEVAEH 2000,283(8):0573-45), the ACTH Stimulation Test provides important prognostic information. This study defined 3 groups of patients with sepsis or septic shock: 1. Good Survival: Low basal cortisol (<or=34 mcg/dL) and high ACTH response (>9mcg/dL) 2.Intermediate Survival: Low basal cortisol (<34 mcg/dL) and low response to ACTH (<or=9 mcg/dL) OR High basal cortisol (>34 mcg/dL) or high ACTH response (>9 mcg/dL) 3.Poor Survival: High basal cortisol (>34 mcg/dL) and low ACTH response (<or=9 mcg/dL). Treatment of patients with relative adrenal dysfunction may be indicated based on test results and the clinical condition of the patient. Additional information, including treatment recommendations, is available in critically ill patients, approved by the Pharmacy, Nutrition, and Therapeutics Committee on 10/05/2004 and available through the Pharmacy Policy and Procedure Section on The Source. Do not run this test if systemic hydrocortisone, methylprednisolone, prednisolone or prednisone has been administered within the past 24 hours.Draw baseline cortisol level just prior to cosyntropin administration.Administer cosyntropin 0.25 mg diluted in 2-5 mL of normal saline slow IV Push over a period of 2 minutes. Draw serum cortisol level 30 minutes after cosyntropin administration.Draw serum cortisol level 60 minutes after cosyntropin administration. Cortisol, 30 minutes (01/05/2018 9:45 PM) Component Value Ref Range Cortisol, Baseline 4.8 mcg/dL Cortisol, 30 Minute 9.2 ug/dL Specimen Performing Laboratory Blood - Arm, [place] [address] Narrative ACTH STIMULATION TEST INTERPRETATION GUIDELINES (Synonyms: Cortrosyn Test, Cosyntropin or Corticotropin Stimulation Test) Adenocorticotropic hormone (ACTH)is a tropic hormone, made in the pituitary gland, which travels trhough the bloodstream and stimulates the cortex of the adrenal glands to release cortisol. Cortisol is a primary hormone, which aids the body's metabolism of fats, carbohydrates, and protein as well as sodium and potassium regulation. ACTH Stimulation Test: Exogenous administration of biologically active ACTH stimulates the secretion of cortisol from the adrenal gland. This test is used to evaluate adrenal function by measuring cortisol levels at baseline and at 30 and 60 minutes after the administration of 250 micrograms of cosyntropin (Cortrosyn). Patients who have received exogenous corticosteroids immediately prior to performing the ACTH Stimulation Test will often have elevated baseline cortisol levels, which may lead to erroneous interpretation of test results. The notable exception is with dexamethasone. Normal Response: An increase in cortisol after stimulation by ACTH is normal. Post-stimulation cortisol concentration should be greater than 20 mcg/dL or the rate of rise from baseline cortisol should be greater than or equal to 9 mcg/dL. Patients with sepsis or septic shock: According to a study by Mindy et al ( NEVAEH 2000,283(8):6890-45), the ACTH Stimulation Test provides important prognostic information. This study defined 3 groups of patients with sepsis or septic shock: 1. Good Survival: Low basal cortisol (<or=34 mcg/dL) and high ACTH response (>9mcg/dL) 2.Intermediate Survival: Low basal cortisol (<34 mcg/dL) and low response to ACTH (<or=9 mcg/dL) OR High basal cortisol (>34 mcg/dL) or high ACTH response (>9 mcg/dL) 3.Poor Survival: High basal cortisol (>34 mcg/dL) and low ACTH response (<or=9 mcg/dL). Treatment of patients with relative adrenal dysfunction may be indicated based on test results and the clinical condition of the patient. Additional information, including treatment recommendations, is available in critically ill patients, approved by the Pharmacy, Nutrition, and Therapeutics Committee on 10/05/2004 and available through the Pharmacy Policy and Procedure Section on The Source. Do not run this test if systemic hydrocortisone, methylprednisolone, prednisolone or prednisone has been administered within the past 24 hours.Draw baseline cortisol level just prior to cosyntropin administration.Administer cosyntropin 0.25 mg diluted in 2-5 mL of normal saline slow IV Push over a period of 2 minutes. Draw serum cortisol level 30 minutes after cosyntropin administration.Draw serum cortisol level 60 minutes after cosyntropin administration. Cortisol, baseline (01/05/2018 9:12 PM) Component Value Ref Range Cortisol, Baseline 4.8 ug/dL Specimen Performing Laboratory Blood - Arm, [place] [address] Narrative ACTH STIMULATION TEST INTERPRETATION GUIDELINES (Synonyms: Cortrosyn Test, Cosyntropin or Corticotropin Stimulation Test) Adenocorticotropic hormone (ACTH)is a tropic hormone, made in the pituitary gland, which travels trhough the bloodstream and stimulates the cortex of the adrenal glands to release cortisol. Cortisol is a primary hormone, which aids the body's metabolism of fats, carbohydrates, and protein as well as sodium and potassium regulation. ACTH Stimulation Test: Exogenous administration of biologically active ACTH stimulates the secretion of cortisol from the adrenal gland. This test is used to evaluate adrenal function by measuring cortisol levels at baseline and at 30 and 60 minutes after the administration of 250 micrograms of cosyntropin (Cortrosyn). Patients who have received exogenous corticosteroids immediately prior to performing the ACTH Stimulation Test will often have elevated baseline cortisol levels, which may lead to erroneous interpretation of test results. The notable exception is with dexamethasone. Normal Response: An increase in cortisol after stimulation by ACTH is normal. Post-stimulation cortisol concentration should be greater than 20 mcg/dL or the rate of rise from baseline cortisol should be greater than or equal to 9 mcg/dL. Patients with sepsis or septic shock: According to a study by Mindy et al ( NEVAEH 2000,283(8):5352-78), the ACTH Stimulation Test provides important prognostic information. This study defined 3 groups of patients with sepsis or septic shock: 1. Good Survival: Low basal cortisol (<or=34 mcg/dL) and high ACTH response (>9mcg/dL) 2.Intermediate Survival: Low basal cortisol (<34 mcg/dL) and low response to ACTH (<or=9 mcg/dL) OR High basal cortisol (>34 mcg/dL) or high ACTH response (>9 mcg/dL) 3.Poor Survival: High basal cortisol (>34 mcg/dL) and low ACTH response (<or=9 mcg/dL). Treatment of patients with relative adrenal dysfunction may be indicated based on test results and the clinical condition of the patient. Additional information, including treatment recommendations, is available in critically ill patients, approved by the Pharmacy, Nutrition, and Therapeutics Committee on 10/05/2004 and available through the Pharmacy Policy and Procedure Section on [employer] Source. Do not run this test if systemic hydrocortisone, methylprednisolone, prednisolone or prednisone has been administered within the past 24 hours.Draw baseline cortisol level just prior to cosyntropin administration.Administer cosyntropin 0.25 mg diluted in 2-5 mL of normal saline slow IV Push over a period of 2 minutes. Draw serum cortisol level 30 minutes after cosyntropin administration.Draw serum cortisol level 60 minutes after cosyntropin administration. ACTH stimulation (01/05/2018 9:12 PM) Specimen Performing Laboratory Blood Narrative The following orders were created for panel order ACTH stimulation. Procedure Abnormality Status --------- ------ Cortisol, baseline[[id number]] Final result Cortisol, 30 minutes[[id number]] Final result Cortisol, 60 minutes[[id number]] Final result Please view results for these tests on the individual orders. ACTH (01/05/2018 9:12 PM) Component Value Ref Range ACTH 10 6 - 50 pg/mL Comment: Reference range applies only to the specimens collected between 7am-10am. Specimen Performing Laboratory Blood - Arm, Left [facility] [address] [place] [address] Narrative Performing Lab [facility] [address] [place] [address] Clau Avila MD, PhD US paracentesis (01/05/2018 5:34 PM)Only the most recent of5 resultswithin the time period is included. Specimen Performing Laboratory GE [facility] Narrative FINAL REPORT History: Ascites. PROCEDURE: Following informed written consent, the patient's right lower quadrant was prepped and draped in the usual sterile manner. 2% lidocaine was given locally for anesthesia. No conscious sedation was administered. Using ultrasound guidance, a 5 Pakistani one-step catheter was advanced percutaneously into the [...] Successful uncomplicated ultrasound-guided paracentesis. Signed: Karina Rain MD Report Verified Date/Time:01/05/2018 17:54:16 Reading Location: [address] Ultrasound Reading Room Procedure Note Interface, External Ris In - 01/05/2018 5:56 PM CDT FINAL REPORT History: Ascites. PROCEDURE: Following informed written consent, the patient's right lower quadrant was prepped and draped in the usual sterile manner. 2% lidocaine was given locally for anesthesia. No conscious sedation was administered. Using ultrasound guidance, a 5 Pakistani one-step catheter was advanced percutaneously into the [...] Successful uncomplicated ultrasound-guided paracentesis. Signed: Karina Rain MD Report Verified Date/Time: 01/05/2018 17:54:16 Reading Location: [address] Ultrasound Reading Room Manual Differential (01/05/2018 6:10 AM)Only the most recent of6 resultswithin the time period is included. Component Value Ref Range Total Counted WBC Morphology Normal Platelet Morphology Normal Anisocytosis 1+ few Specimen Performing Laboratory Blood - Arm, [address] [address] Cortisol (01/05/2018 6:10 AM) Component Value Ref Range Cortisol, Total 2.7 (L) 3.7 - 19.4 ug/dL Specimen Performing Laboratory Blood - Arm, [address] [address] Electrolytes (01/04/2018 4:46 PM) Component Value Ref Range Sodium 129 (L) 136 - 145 meq/L Potassium 5.5 (H) 3.5 - 5.1 meq/L Chloride 101 98 - 107 meq/L CO2 26 22 - 29 meq/L Specimen Performing Laboratory Blood [address] [address] Narrative Call [phone] with results CBC (Hemogram only) (01/04/2018 5:21 AM)Only the most recent of2 resultswithin the time period is included. Component Value Ref Range WBC 2.9 (L) 3.5 - 10.5 K/L RBC 2.25 (L) 4.63 - 6.08 M/L Hemoglobin 7.3 (L) 13.7 - 17.5 GM/DL Hematocrit 21.3 (L) 40.1 - 51.0 % MCV 94.7 (H) 79.0 - 92.2 fL MCH 32.4 (H) 25.7 - 32.2 pg MCHC 34.3 32.3 - 36.5 GM/DL RDW 17.6 (H) 11.6 - 14.4 % Platelets 59 (L) 150 - 450 K/CU MM MPV 11.3 9.4 - 12.4 fL nRBC 0 0 - 0 /100 WBC Specimen Performing Laboratory Blood - Arm, [address] [address] TRANSFUSION SERVICE REPORT - SCAN (01/03/2018 5:53 PM)Only the most recent of6 resultswithin the time period is included.Vitamin B12 and Folate (01/03/2018 2: 57 PM) Component Value Ref Range Vitamin B12 829 (H) 213 - 816 pg/mL Folate 18.9 >=7.0 ng/mL Specimen Performing Laboratory Blood - Arm, [address] [address] Prepare Leuko-Red RBC (01/02/2018 11:55 PM)Only the most recent of3 resultswithin the time period is included. Component Value Ref Range CROSSMATCH COMPATIBLE Unit ABO A Pos UNIT NUMBER [id number] Status TRANSFUSED Blood Bank Product RED BLOOD CELLS PRODUCT CODE [id number] Specimen Performing Laboratory Other [facility] [place] REPORT OF PROCEDURE - ENDOSCOPY URL (01/02/2018 11:12 AM)Only the most recent of2 resultswithin the time period is included.Transfuse Leuko-Red RBC (2017 7:11 PM)Only the most recent of6 resultswithin the time period is included.Type and screen, automated (01/01/2018 2:20 PM)Only the most recent of4 resultswithin the time period is included. Component Value Ref Range ABO/RH AUTOMATED (BEAKER) A POSITIVE Ab Scrn NEGATIVE Specimen Performing Laboratory Blood [address] [address] Body fluid cell count with differential (01/01/2018 9:40 AM)Only the most recent of4 resultswithin the time period is included. Component Value Ref Range Appearance Slightly Hazy (A) Clear Color Yellow (A) Colorless, Straw RBCs 378 (H) <=1 /cu mm Adjusted WBC Count 84 (H) <=5 /cu mm Lining Cells 17 (H) <=1 /cu mm % Segs 1 % % Lymphs 14 % % Monos 85 % % Eos 0 % % Baso 0 % Container Body Fluid EDTA Tube Specimen Performing Laboratory Body Fluid - Ascites [facility] [address] [address] Hereditary Hemochromatosis DNA (01/01/2018 5:26 AM)Only the most recent of2 resultswithin the time period is included. 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 However, it does not rule out the presence of other mutations within the HFE gene or a diagnosis of HH. The risk of this individual carrying a HFE mutation other than those tested in this assay depends greatly on family and clinical history as well as ethnicity. This assay does not test for other primary or secondary iron overload disorders.Consider genetic counseling and DNA testing for at-risk family members. Pablo Meade, Ph.D., [facility] Director, Molecular Genetics Hereditary hemochromatosis (HH) is an autosomal recessive disorder of iron metabolism that results in iron overload and potential organ failure.It is one of the most common genetic disorders in individuals of - ancestry, with an estimated carrier frequency of 10%.HH is caused by mutations in the HFE gene.Most individuals with HH (60-90%) are homozygous for the C282Y mutation.A smaller percentage of affected individuals are either compound heterozygous for the C282Y and H63D mutations (3%-8%), or homozygous for the H63D mutation (approximately 1%). This assay detects the two mutations in the HFE gene, C282Y ([id number]: c.845G>A) and H63D (NM_000410.2: c. 187C>G), that are commonly associated with HH.The mutations are detected by multiplex-polymerase chain reaction (PCR) amplification, followed by digestion of the amplification products with the restriction enzymes Rsal and NlaIII, for the detection of the C282Y and H63D mutations respectively.Fluorescent-labeled restriction fragments are detected by capillary electrophoresis. This assay does not detect other mutations in the HFE gene that can cause HH.Since genetic variation and other factors can affect the accuracy of direct mutation testing, these results should be interpreted in light of clinical and familial data. For assistance with interpretation of these results, please contact your local [email or web address] genetic counselor or call [phone] ([phone]). This test was developed and its analytical performance characteristics have been determined by [employer] [place], [place]. It has not been cleared or approved by the FDA. This assay has been validated pursuant to the CLIA regulations and is used for clinical purposes. For more information on this test, go to http://education.Tempo AI/faq/hemochromatos Specimen Performing Laboratory Blood - Line, Venous [facility] [address] [place] [address] Narrative Performing Lab 15 [employer] [facility], [address] [place] [address] [place] [address] Ly Hansen MD, PhD CT chest without IV contrast (12/31/2017 7:21 PM) Specimen Performing Laboratory [facility] Narrative FINAL REPORT HISTORY: Lung nodule, >=1cm COMPARISON : [...] iterative reconstructive technique. Comment: The thyroid gland is within normal limits. There is no hilar, mediastinal [...] is seen. The patient does have COPD/emphysema. There are bibasilar areas of some linear subsegmental atelectasis [...] or aspiration. However, this finding should be either closely followed by chest CT or correlated with a PET-CT scan to exclude a mass/neoplasm. 3. COPD/emphysema. 4. Hepatic cirrhosis, splenomegaly and upper abdominal ascites. Signed: Sol Landeros MD Report Verified Date/Time:12/31/2017 19:24:12 Reading Location: [address] Consult Reading Room Procedure Note Interface, External Ris In - 12/31/2017 7:26 PM SAFETY COMPANION FINAL REPORT HISTORY: Lung nodule, >=1cm COMPARISON : [...] iterative reconstructive technique. Comment: The thyroid gland is within normal limits. There is no hilar, mediastinal [...] is seen. The patient does have COPD/emphysema. There are bibasilar areas of some linear subsegmental atelectasis [...] or aspiration. However, this finding should be either closely followed by chest CT or correlated with a PET-CT scan to exclude a mass/neoplasm. 3. COPD/emphysema. 4. Hepatic cirrhosis, splenomegaly and upper abdominal ascites. Signed: Sol Landeros MD Report Verified Date/Time: 12/31/2017 19:24:12 Reading Location: [facility] [id number] Consult Reading Room Blood gas, arterial (12/31/2017 5:18 PM) Component Value Ref Range pH, Arterial 7.45 7.35 - 7.45 pCO2, Arterial 36 35 - 45 mmHg pO2, Arterial 76 (L) 80 - 90 mmHg O2 Sat, Arterial 96.1 96.0 - 97.0 % HCO3, Arterial 24 21 - 29 mmol/L Base Excess, Arterial 0.2 -2.0 - 3.0 mmol/L Patient Temperature 36.4 C FIO2 21.0 % Specimen Performing Laboratory Blood, Arterial - Arm, [address] [address] Peripheral Blood Smear - Hold only (12/31/2017 4:48 PM) Component Value Ref Range Peripheral Smear Save prepared and saved smear, 12/31/17 Specimen Performing Laboratory Blood - Arm, [address] [address] Reticulocyte count (12/31/2017 4:48 PM) Component Value Ref Range % Retic 3.5 (H) 0.5 - 1.8 % Specimen Performing Laboratory Blood - Arm, [address] [address] Lactate dehydrogenase (LDH) (12/31/2017 4:48 PM) Component Value Ref Range LDH 112 (L) 125 - 220 U/L Specimen Performing Laboratory Blood - Arm, [address] [address] Hemoglobin and hematocrit (12/31/2017 1:03 PM) Component Value Ref Range Hemoglobin 7.3 (L) 13.7 - 17.5 GM/DL Hematocrit 21.9 (L) 40.1 - 51.0 % Specimen Performing Laboratory Blood - Arm, [address] [address] NM myocardial perfusion SPECT,pharm(Lexiscan) (12/31/2017 12:10 PM) Specimen Performing Laboratory [facility] Narrative FINAL REPORT PROCEDURE:Rest/Stress MYOCARDIAL PERFUSION SPECT with regadenoson\\XA9\\ CPT CODE:34970 INDICATION:Liver transplant evaluation HISTORY:Cardiac risk factors: Stroke. Other cardiovascular history: No reported CAD. Recent cardiac symptoms: Dyspnea. Current cardiovascular-related medications: None reported. PROTOCOL:10.8 mCi of Tc-99m sestamibi was injected iv at rest, and [...] rest and no ischemic changes with stress. (Final ECG interpretation and other stress and monitoring data are reported separately by Cardiology.) IMAGING FINDINGS:Study quality is good. Images obtained after rest and stress injections show normal LV activity. LV and RV volumes appear normal. Gated images obtained at rest after stress show normal LV wall motion and thickening. QGS LVEF is >70%. IMPRESSION: 1. Normal study.2. Appropriate pharmacologic stress. 3. Normal myocardial perfusion.4. Normal resting LV function.5. Normal extracardiac tracer distribution.6. No previous [facility] study for comparison. NONINVASIVE RISK STRATIFICATION: The above findings are considered low risk (<1% annual mortality rate) based on the following criterion: - Normal or small myocardial perfusion defect at rest or with stress (JAC. 2012;59(9):857-74.) Signed: Mabel Napier MD Report Verified Date/Time:12/31/2017 15:12:03 Reading Location: [address] Reading Room Procedure Note Interface, External Ris In - 12/31/2017 3:14 PM SAFETY COMPANION FINAL REPORT PROCEDURE: Rest/Stress MYOCARDIAL PERFUSION SPECT with regadenoson\\XA9\\ CPT CODE: 38141 INDICATION: Liver transplant evaluation HISTORY: Cardiac risk factors: Stroke. Other cardiovascular history: No reported CAD. Recent cardiac symptoms: Dyspnea. Current cardiovascular-related medications: None reported. PROTOCOL: 10.8 mCi of Tc-99m sestamibi was injected iv at rest, and [...] rest and no ischemic changes with stress. (Final ECG interpretation and other stress and monitoring [...] Normal extracardiac tracer distribution. 6. No previous [facility] study for comparison. NONINVASIVE RISK STRATIFICATION: The above findings are considered low risk (<1% annual mortality rate) based on the following criterion: - Normal or small myocardial perfusion defect at rest or with stress (JACC. 2012;59(9):857-81.) Signed: Mabel Napier MD Report Verified Date/Time: 12/31/2017 15:12:03 Reading Location: [address] Reading Room Treadmill tolerance(Non-Nuclear Treadmill) (12/31/2017 10:40 AM) Specimen Performing Laboratory [facility] Narrative Protocol Name Lexiscan Time In Exercise Phase 00:01:00 Max. Systolic BP 100 mmHg Max Diastolic BP 73 mmHg Max Heart Rate 83 BPM Max Predicted Heart Rate 168 BPM Reason For Termination Predetermined end point Reason for Test Pre Op Liver Transplant Evaluation Target HR Formula (220 - Age)*100% Arrhythmias none Resting ECG Normal sinus rhythm ST Changes No Significant Changes Overall Impression Indeterminate due to pharmacological stress Chest Pain none HR Response To Exercise Appropriate for pharmacological stress BP Response To Exercise Appropriate Response for Pharma Stress No meds Confirmed by fellow Patrick Katz ([id number]) on 12/31/2017 10:58:52 AM Confirmed by MD COKER JORGE ([id number]) on 01/02/2018 11:06:54 AM Procedure Note Interface, External Ris In - 01/02/2018 11:07 AM SAFETY COMPANION Protocol Name Lexiscan Time In Exercise Phase 00:01:00 Max. Systolic BP 100 mmHg Max Diastolic BP 73 mmHg Max Heart Rate 83 BPM Max Predicted Heart Rate 168 BPM Reason For Termination Predetermined end point Reason for Test Pre Op Liver Transplant Evaluation Target HR Formula (220 - Age)*100% Arrhythmias none Resting ECG Normal sinus rhythm ST Changes No Significant Changes Overall Impression Indeterminate due to pharmacological stress Chest Pain none HR Response To Exercise Appropriate for pharmacological stress BP Response To Exercise Appropriate Response for Pharma Stress No meds Confirmed by fellow Patrick Katz ([id number]) on 12/31/2017 10:58:52 AM Confirmed by MD COKER JORGE ([id number]) on 01/02/2018 11:06:54 AM ECHOCARDIOGRAM REPORT - SCAN (12/31/2017 9:50 AM)PT/aPTT (12/31/2017 8:08 AM) Only the most recent of3 resultswithin the time period is included. Component Value Ref Range Protime 24.0 (H) 11.7 - 14.7 seconds INR 2.2 <=5.9 PTT 55.2 (H) 22.5 - 36.0 seconds Specimen Performing Laboratory Blood - Arm, [place] [address] Narrative RECOMMENDED COUMADIN/WARFARIN INR THERAPY RANGES STANDARD DOSE: 2.0 - 3.0 Includes: PROPHYLAXIS for venous thrombosis, systemic embolization; TREATMENT for venous thrombosis and/or pulmonary embolus. HIGH RISK: Target INR is 2.5-3.5 for patients with mechanical heart valves. PERIPHERAL VASCULAR REPORT - SCAN (12/31/2017 7:20 AM)XR chest 2 views (2017 11:15 PM) Specimen Performing Laboratory [facility] Narrative FINAL REPORT EXAMINATION: 2 VIEW CHEST CLINICAL INDICATION: Liver failure. Transplant candidate IMPRESSION: Compared with February 14, 2017. Of note, a small new or more conspicuous patchy nodular 2-3 cm opacity projects over the [...] performed for further evaluation if warranted. Signed: Cash Barcenas MD Report Verified Date/Time:12/30/2017 23:32:31 Reading Location: [address] Reading Room Procedure Note Interface, External Ris In - 12/30/2017 11:34 PM SAFETY COMPANION FINAL REPORT EXAMINATION: 2 VIEW CHEST CLINICAL INDICATION: Liver failure. Transplant candidate IMPRESSION: Compared with February 14, 2017. Of note, a small new or more conspicuous patchy nodular 2-3 cm opacity projects over the [...] performed for further evaluation if warranted. Signed: Cash Barcenas MD Report Verified Date/Time: 12/30/2017 23:32:31 Reading Location: [address] Reading Room mandible min 4 views (12/30/2017 11:15 PM) Specimen Performing Laboratory RIS Narrative FINAL REPORT EXAMINATION: MANDIBULAR SERIES, 6 VIEWS CLINICAL INDICATION: TRANSPLANT CANDIDATE. EVALUATE FOR ODONTOGENIC INFECTION. IMPRESSION: No definite evidence of odontogenic infection. The paranasal sinuses and mastoid air cells appear well pneumatized. Orbits are unremarkable. Bony calvarium is mildly heterogeneous with small scattered nonspecific sclerotic foci. Maxillofacial / head CT could be performed for further evaluation if warranted. Bone scan could also be performed to evaluate metabolic activity of the small scattered sclerotic calvarial foci. Signed: Cash Barcenas MD Report Verified Date/Time:12/31/2017 01:37:57 Reading Location: [address] Reading Room Procedure Note Interface, External Ris In - 12/31/2017 1:40 AM SAFETY COMPANION FINAL REPORT EXAMINATION: MANDIBULAR SERIES, 6 VIEWS CLINICAL INDICATION: TRANSPLANT CANDIDATE. EVALUATE FOR ODONTOGENIC INFECTION. IMPRESSION: No definite evidence of odontogenic infection. The paranasal sinuses and mastoid air cells appear well pneumatized. Orbits are unremarkable. Bony calvarium is mildly heterogeneous with small scattered nonspecific sclerotic foci. Maxillofacial / head CT could be performed for further evaluation if warranted. Bone scan could also be performed to evaluate metabolic activity of the small scattered sclerotic calvarial foci. Signed: Cash Barcenas MD Report Verified Date/Time: 12/31/2017 01:37:57 Reading Location: [address] Reading Room 12 lead (12/30/2017 8:35 PM) Specimen Performing Laboratory [facility] Narrative Ventricular Rate 85 BPM Atrial Rate 394 BPM QRS Duration 86 ms Q-T Interval 376 ms QTC Calculation(Bazett) 447 ms P [place] 69 degrees R [place] -3 degrees T [place] 43 degrees Poor data quality, interpretation may be adversely affected Atrial rhythm cannot be determined Cannot rule out Anterior infarct , age undetermined Abnormal ECG No previous ECGs available Please repeat Confirmed by MD CASTILLO YOCHAI ([id number]) on 12/31/2017 6:30:28 AM Procedure Note Interface, External Ris In - 12/31/2017 6:30 AM SAFETY COMPANION Ventricular Rate 85 BPM Atrial Rate 394 BPM QRS Duration 86 ms Q-T Interval 376 ms QTC Calculation(Bazett) 447 ms P [place] 69 degrees R [place] -3 degrees T [place] 43 degrees Poor data quality, interpretation may be adversely affected Atrial rhythm cannot be determined Cannot rule out Anterior infarct , age undetermined Abnormal ECG No previous ECGs available Please repeat Confirmed by MD CASTILLO YOCHAI ([id number]) on 12/31/2017 6:30:28 AM ECHO W CONTRAST & DOPPLER (12/30/2017 7:06 PM) Component Value Ref Range Ejection Fraction Specimen Performing Laboratory [facility] ECHO [facility] MKCKESSON CPA Narrative Transthoracic Echocardiography Report (TTE) Demographics Patient Name ABHISHEK ARRIETADate of Study 12/30/2017 [id number] Male Visit Number [id number] Unknown [id number] Room Number 923 Number Date of Birth1965Referring Physician Pacheco Mota MD Age52 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 Needs to be Pre Physician Read Sarah Ortega MD Fellow CARRIE Benavidez Procedure Type of Study TTE procedure:2DECHO W/CONTRAST & DOPPLER (STAT) Indications:Acute Chest Pain/ Suspected CAD. Clinical History ANEMIA CIRRHOSIS POLLY ASCITIS FEVER TACHYCARDIA HGB 7.1 HCT 20.8 % Height: 72 inches Weight: 77.56 kg (171 lbs) BSA: 1.99 m^2 BMI: 23.19 kg/m^2 HR: 89 bpm BP: 98/63 mmHg Summary 1. IV saline contrast injection demostrates a PFO (patent foramen ovale) at rest . 2. LVEF by Mota's method of disk assessment is increased (>60%) . 3. Estimated peak systolic PA pressure is 20-25 mmHg . 4. Left pleural effusion appears moderate in size. Signature Findings Left Ventricle The left ventricle is chamber size (by vol index) is normal. No evidence of LV hypertrophy. LVEF by Mota's method of disk assessment is increased (>60%) . Normal diastolic function. Left AtriumNormal size left atrium. Right VentricleNormal right ventricle structure and function. Right Atrium Normal right atrium. Atrial SeptumIV saline contrast injection demostrates a PFO (patent foramen ovale) at rest . Aortic Valve Normal AoV structure and function. Mitral Valve Normal MV structure and function. Tricuspid ValveTV structure is normal. A trace of tricuspid regurgitation. Estimated peak systolic PA pressure is 20-25 mmHg . Peak systolic pressure may be underestimated; partial TR signal. Pulmonic Valve PV is not well visualized; function appears normal by Doppler visualized. AortaAortic root size (SInus of Valsalva diameter) is normal . PericardiumNo significant pericardial effusion is visualized. IVC/SVC/PA/PV/PleuralThe estimated RA pressure by IVC dynamics 0-5mmHg . A left pleural effusion is noted. Left pleural effusion appears moderate in size. Ascites is noted. Chambers/Structures Left Atrium LA Volume: 49.36 ml LA Area: 17.68 cm^ 2 LA Vol. Index: 25 ml/m^2 Left Ventricle LVIDd: 4.57 cm LVIDs: 3.02 cm LV Septum Diastolic: 0.97 cm LV PW Diastolic: 0.85 cmLV FS: 33.9 % LVEDV Mota's:124.03 ml LVESV Mota's:39.88 mlLVEDVI: 62 ml/ m^2 LVEF Mota's: 67.9 %LVESVI: 20 ml/m^2 LVOT Diameter: 2.33 cm Aorta Ao Root S of Nori.: 3.64 cm Doppler/Quantitative Measurements Mitral Valve MV Peak E-Wave: 0.87 m/sMV Peak A-Wave: 0.74 m/s E/A Ratio: 1.18 Peak Gradient: 3.05 mmHg MV Blu. Peak: Tissue Doppler E' Lateral Velocity: 0.18 m/s E/E': 4.83 Aortic Valve Peak Velocity: 1.69 m/sMean Velocity: 1.25 m/s Peak Gradient: 11.47 mmHgMean Gradient: 6.72 mmHg AV Area (continuity): 2.47 cm^2 AV VTI: 31.52 cm AV DVI: 0.58 LVOT Peak Velocity: 0.96 m/s Peak Gradient: 3.71 mmHg Mean Velocity: 0.64 m/s Mean Gradient: 1.95 mmHg LVOT Diameter: 2.33 cmLVOT VTI: 18.26 cm LVOT Area: 4.26 cm^2LVOT SV:77.82 ml LVOT CO: 6.93 l/min LVOT CI: 3.48 l/min/m^2 Tricuspid Valve TR Velocity: 2.29 m/s TR Gradient: 21.03 mmHg Procedure Note Interface, External Ris In - 12/31/2017 9:21 AM SAFETY COMPANION Transthoracic Echocardiography Report (TTE) Demographics Patient Name ABHISHEK ARRIETA Date of Study 12/30/2017 Gender Male Visit Number [id number] Race Unknown Room Number 923 Number Date of 1965 Referring Physician Pacheco Mota MD Age 52 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 Needs to be Pre Physician Read Sarah Ortega MD Fellow CARRIE Benavidez Procedure Type of Study TTE procedure:2DECHO W/CONTRAST & DOPPLER (STAT) Indications:Acute Chest Pain/ Suspected CAD. Clinical History ANEMIA CIRRHOSIS POLLY ASCITIS FEVER TACHYCARDIA HGB 7.1 HCT 20.8 % Height: 72 inches Weight: 77.56 kg (171 lbs) BSA: 1.99 m^2 BMI: 23.19 kg/m^2 HR: 89 bpm BP: 98/63 mmHg Summary 1. IV saline contrast injection demostrates a PFO (patent foramen ovale) at rest . 2. LVEF by Mota's method of disk assessment is increased (>60%) . 3. Estimated peak systolic PA pressure is 20-25 mmHg . 4. Left pleural effusion appears moderate in size. Signature Findings Left Ventricle The left ventricle is chamber size (by vol index) is normal. No evidence of LV hypertrophy. LVEF by Mota's method of disk assessment is increased (>60%) . Normal diastolic function. Left Atrium Normal size left atrium. Right Ventricle Normal right ventricle structure and function. Right Atrium Normal right atrium. Atrial Septum IV saline contrast injection demostrates a PFO (patent foramen ovale) at rest . Aortic Valve Normal AoV structure and function. Mitral Valve Normal MV structure and function. Tricuspid Valve TV structure is normal. A trace of tricuspid regurgitation. Estimated peak systolic PA pressure is 20-25 mmHg . Peak systolic pressure may be underestimated; partial TR signal. Pulmonic Valve PV is not well visualized; function appears normal by Doppler visualized. Aorta Aortic root size (SInus of Valsalva diameter) is normal . Pericardium No significant pericardial effusion is visualized. IVC/SVC/PA/PV/Pleural The estimated RA pressure by IVC dynamics 0-5mmHg . A left pleural effusion is noted. Left pleural effusion appears moderate in size. Ascites is noted. Chambers/Structures Left Atrium LA Volume: 49.36 ml LA Area: 17.68 cm^2 LA Vol. Index: 25 ml/m^2 Left Ventricle LVIDd: 4.57 cm LVIDs: 3.02 cm LV Septum Diastolic: 0.97 cm LV PW Diastolic: 0.85 cm LV FS: 33.9 % LVEDV Mota's:124.03 ml LVESV Mota's:39.88 ml LVEDVI: 62 ml/m^2 LVEF Mota's: 67.9 % LVESVI: 20 ml/m^2 LVOT Diameter: 2.33 cm Aorta Ao Root S of Nori.: 3.64 cm Doppler/Quantitative Measurements Mitral Valve MV Peak E-Wave: 0.87 m/s MV Peak A-Wave: 0.74 m/s E/A Ratio: 1.18 Peak Gradient: 3.05 mmHg MV Blu. Peak: Tissue Doppler E' Lateral Velocity: 0.18 m/s E/E': 4.83 Aortic Valve Peak Velocity: 1.69 m/s Mean Velocity: 1.25 m/s Peak Gradient: 11.47 mmHg Mean Gradient: 6.72 mmHg AV Area (continuity): 2.47 cm^2 AV VTI: 31.52 cm AV DVI: 0.58 LVOT Peak Velocity: 0.96 m/s Peak Gradient: 3.71 mmHg Mean Velocity: 0.64 m/s Mean Gradient: 1.95 mmHg LVOT Diameter: 2.33 cm LVOT VTI: 18.26 cm LVOT Area: 4.26 cm^2 LVOT SV:77.82 ml LVOT CO: 6.93 l/min LVOT CI: 3.48 l/min/m^2 Tricuspid Valve TR Velocity: 2.29 m/s TR Gradient: 21.03 mmHg Carotid doppler bilateral (12/30/2017 4:53 PM) Component Value Ref Range Ejection Fraction Specimen Performing Laboratory [facility] Impressions Right Impression 1. There is <50% diameter reduction (approximately 45% by 2-D measurement) in the internal carotid artery with a peak velocity of 64/25 cm/sec and echodense plaque. 2. The external carotid artery is within normal limits. 3. There is non-occluding plaque in the common carotid artery. 4. The vertebral artery flow is antegrade and normal. 5. The subclavian artery is within normal limits where visualized. Left Impression 1. There is <50% diameter reduction (approximately 40% by 2-D measurement) in the internal carotid artery with a peak velocity of 61/17 cm/sec and echodense plaque. 2. The external carotid artery is within normal limits. 3. There is non-occluding plaque in the common carotid artery. 4. The vertebral artery flow is antegrade and normal. 5. The subclavian artery is within normal limits where visualized. Conclusions Summary Carotid duplex scanning and color flow imaging were performed bilaterally. The arteries were adequately visualized. The bilateral internal carotid arteries had <50% hemodynamically insignificant stenosis (approximately 45% by 2-D measurement on the right, approximately 40% by 2-D measurement on the left) with echodense plaque. The vertebral artery flow was antegrade and normal bilaterally. Signature Velocities are measured in cm/s ; Diameters are measured in cm Carotid Right Measurements + +----+----+-----+ + + + !Location !PSV !EDV !Angle!%Stenosis 2D!%Stenosis Doppler! Tortuosity ! + +----+----+-----+ + + + !Prox CCA !80.9!17.6!60 !! ! ! + +----+----+-----+ + + + !Dist CCA !71.1!17.7!60 !! ! ! + +----+----+-----+ + + + !Prox ICA !47.5!16.5!60 !45% !<50% ! ! + +----+----+-----+ + + + !Dist ICA !64!25.1!60 !! ! ! + +----+----+-----+ + + + !Prox ECA !77.4!10.6!60 !! ! ! + +----+----+-----+ + + + !Vertebral!34.8!11.2!60 !! ! ! + +----+----+-----+ + + + !Prox Subclavian!92.7!!60 !! ! ! + +----+----+-----+ + + + - There is antegrade vertebral flow noted on the right side. - Additional Measurements:ICAPSV/CCAPSV 0.9.ICAEDV/CCAEDV 1.43. Carotid Left Measurements + +----+----+-----+ + + + !Location !PSV !EDV !Angle!%Stenosis 2D!%Stenosis Doppler! Tortuosity ! + +----+----+-----+ + + + !Prox CCA !133 !23.6!60 !! ! ! + +----+----+-----+ + + + !Dist CCA !59.8!14.1!60 !! ! ! + +----+----+-----+ + + + !Prox ICA !37.9!14.5!60 !40% !<50% ! ! + +----+----+-----+ + + + !Dist ICA !61!17.6!60 !! ! ! + +----+----+-----+ + + + !Prox ECA !50.3!6.29!60 !! ! ! + +----+----+-----+ + + + !Vertebral!43.2!16.9!60 !! ! ! + +----+----+-----+ + + + !Prox Subclavian!118 !!60 !! ! ! + +----+----+-----+ + + + - There is antegrade vertebral flow noted on the left side. - Additional Measurements:ICAPSV/CCAPSV 1.02.ICAEDV/CCAEDV 0.75. Narrative PV LAB - Carotid Duplex Study Demographics Patient Name Madison ARRIETA of Study 12/30/2017 [id number] Visit Number [id number] Male Accession Number [id number] of 1965 [facility] Number [id number] PhysicianKumar SonographerHeather L.InterpretingJ. Gregory Odell T Physician , RPVI Procedure Type of Study: Cerebral: Carotid, CAROTID DOPPLER, BILATERAL. Indications for Study:Liver transplant evaluation. Patient Status:Routine. Study Location:Vascular Lab. Technical Quality:Adequate visualization. Risk Factors History of Disease + +----+ + !Diagnosis !Date!Comments ! + +----+ + !History/Risk!!Alcoholic cirrhosis, Ascites, Liver Failure, POLLY! !Factors:!! ! + +----+ + Procedure Note Interface, External Ris In - 12/31/2017 5:43 AM SAFETY COMPANION PV LAB - Carotid Duplex Study Demographics Patient Name ABHISHEK ARRIETA Date of Study 12/30/2017 Age 52 Visit Number [id number] Gender Male Accession Number [id number] Date of 1965 Referring Ananda Mckay Room Number 923 Physician [employer] Photographer Massiel Riddle Interpreting Gregory Lopez T Physician , RPJAYLENE Procedure Type of Study: Cerebral: Carotid, CAROTID DOPPLER, BILATERAL. Indications for Study:Liver transplant evaluation. Patient Status:Routine. Study Location:Vascular Lab. Technical Quality:Adequate visualization. Risk Factors History of Disease + +----+ + !Diagnosis !Date!Comments ! + +----+ + !History/Risk ! !Alcoholic cirrhosis, Ascites, Liver Failure, POLLY! !Factors: ! ! ! + +----+ + Impressions Right Impression 1. There is <50% diameter reduction (approximately 45% by 2-D measurement) in the internal carotid artery with a peak velocity of 64/25 cm/sec and echodense plaque. 2. The external carotid artery is within normal limits. 3. There is non-occluding plaque in the common carotid artery. 4. The vertebral artery flow is antegrade and normal. 5. The subclavian artery is within normal limits where visualized. Left Impression 1. There is <50% diameter reduction (approximately 40% by 2-D measurement) in the internal carotid artery with a peak velocity of 61/17 cm/sec and echodense plaque. 2. The external carotid artery is within normal limits. 3. There is non-occluding plaque in the common carotid artery. 4. The vertebral artery flow is antegrade and normal. 5. The subclavian artery is within normal limits where visualized. Conclusions Summary Carotid duplex scanning and color flow imaging were performed bilaterally. The arteries were adequately visualized. The bilateral internal carotid arteries had <50% hemodynamically insignificant stenosis (approximately 45% by 2-D measurement on the right, approximately 40% by 2-D measurement on the left) with echodense plaque. The vertebral artery flow was antegrade and normal bilaterally. Signature Velocities are measured in cm/s ; Diameters are measured in cm Carotid Right Measurements + +----+----+-----+ + + + !Location !PSV !EDV !Angle!%Stenosis 2D!%Stenosis Doppler!Tortuosity ! + +----+----+-----+ + + + !Prox CCA !80.9!17.6!60 ! ! ! ! + +----+----+-----+ + + + !Dist CCA !71.1!17.7!60 ! ! ! ! + +----+----+-----+ + + + !Prox ICA !47.5!16.5!60 !45% !<50% ! ! + +----+----+-----+ + + + !Dist ICA !64 !25.1!60 ! ! ! ! + +----+----+-----+ + + + !Prox ECA !77.4!10.6!60 ! ! ! ! + +----+----+-----+ + + + !Vertebral !34.8!11.2!60 ! ! ! ! + +----+----+-----+ + + + !Prox Subclavian!92.7! !60 ! ! ! ! + +----+----+-----+ + + + - There is antegrade vertebral flow noted on the right side. - Additional Measurements:ICAPSV/CCAPSV 0.9.ICAEDV/CCAEDV 1.43. Carotid Left Measurements + +----+----+-----+ + + + !Location !PSV !EDV !Angle!%Stenosis 2D!%Stenosis Doppler!Tortuosity ! + +----+----+-----+ + + + !Prox CCA !133 !23.6!60 ! ! ! ! + +----+----+-----+ + + + !Dist CCA !59.8!14.1!60 ! ! ! ! + +----+----+-----+ + + + !Prox ICA !37.9!14.5!60 !40% !<50% ! ! + +----+----+-----+ + + + !Dist ICA !61 !17.6!60 ! ! ! ! + +----+----+-----+ + + + !Prox ECA !50.3!6.29!60 ! ! ! ! + +----+----+-----+ + + + !Vertebral !43.2!16.9!60 ! ! ! ! + +----+----+-----+ + + + !Prox Subclavian!118 ! !60 ! ! ! ! + +----+----+-----+ + + + - There is antegrade vertebral flow noted on the left side. - Additional Measurements:ICAPSV/CCAPSV 1.02.ICAEDV/CCAEDV 0.75. Carbohydrate antigen 19-9 (CA 19-9) (12/30/2017 3:24 PM) Component Value Ref Range CA 19-9 17 <34 U/mL Comment: This test was performed using the Siemens (StrikeIron) Chemiluminescent method. Values obtained from different assay methods cannot be used interchangeably. CA19-9 levels, regardless of value, should not be interpreted as absolute evidence of the presence or absence of disease. Specimen Performing Laboratory Blood [facility] [address] [address] Narrative Performing Lab E[facility] [address] [address] Clau Avila MD, PhD Hemoglobin A1c (12/30/2017 3:19 PM) Component Value Ref Range Hemoglobin A1C 4.1 (L) 4.3 - 6.1 % Specimen Performing Laboratory Blood [address] [address] Ieods-5-Wxxxdhpixqg Phenotype (12/30/2017 3:18 PM) Component Value Ref Range A-1 Antitryp Phenotyp SEE BELOW Comment: THIS PATIENT'S IXHXX-3-[id number] PHENOTYPE IS PI*MM. 90% of normal individuals have the MM phenotype, with normal quantitative AAT levels. Many phenotypic patterns have been described, including deficiency states with F, S, Z, or other alleles. As a general estimation, compared to M allele of 100% of normal Z-4-Qvrulllulkx protein, the S allele produces approximately 60% and the Z allele 20%. For example, an MS phenotype would have about 80% of normal C-2-Xjqrpzbkuzq protein level, a 50% contribution from the M allele and 30% from the S allele. A ZZ phenotype would have about 20% of normal levels, a 10% contribution from each Z gene. The F allele has normal H-6-Ccwksoxyajo levels, but the kinetics of elastase inhibition is not as efficient as an M allele product; F alleles should be considered functionally mildly deficient. Other variants are identifiable by phenotypic analysis. These include CM, DP, EM, GM, IS, LM, M1M2, M3M3, MP, MT, XX, MY, and M1N. I, P, T and null alleles are considered deleterious. C, D, E, G, L, M1, M2, M3, X and Y alleles are generally considered normal variants. The MZ-Hughes phenotype is a normal variant; care should be taken to avoid confusion with the deficient MZ phenotype. Specimen Performing Laboratory Blood - Other [facility] [address] [address] Narrative Performing Lab EZ [email or web address] [address] [address] Clau Avila MD, PhD Zinc (12/30/2017 3:18 PM) Component Value Ref Range Zinc 32 (L) 60 - 130 mcg/dL Comment: This test was developed and its analytical performance characteristics have been determined by [email or web address]. It has not been cleared or approved by the US Food and Drug Administration. This assay has been validated pursuant to the CLIA regulations and is used for clinical purposes. Specimen Performing Laboratory Blood [facility] [address] [address] Narrative Performing Lab *SPL [email or web address], [address] [place] [address] Clau Avila MD, PhD Testosterone, free + total (12/30/2017 3:18 PM) Component Value Ref Range Testosterone 90 (L) 250 - 1100 ng/dL Testosterone, Free 12.6 (L) 35.0 - 155.0 pg/mL Comment: This test was developed and its analytical performance characteristics have been determined by [facility]. It has not been cleared or approved by the US Food and Drug Administration. This assay has been validated pursuant to the CLIA regulations and is used for clinical purposes. Specimen Performing Laboratory Blood [facility] [address] [place] [address] Narrative Performing Lab *SPL [facility], [address] [place] [address] Clau Avila MD, PhD Iron, TIBC, % sat. (without ferritin) (12/30/2017 3:17 PM) Component Value Ref Range Iron 90 40 - 160 ug/dL TIBC 85 (L) 250 - 450 ug/dL Iron % Saturation 106 (H) 20 - 55 % Specimen Performing Laboratory Blood [address] [address] HIV-1 Antigen with HIV-1/2 Antibody (12/30/2017 3:17 PM) Component Value Ref Range HIV-1 Antigen with HIV 1&2 Antibody Nonreactive Nonreactive Specimen Performing Laboratory [address] [address] Hepatitis C antibody (12/30/2017 3:17 PM) Component Value Ref Range Hepatitis C Ab Nonreactive Nonreactive Specimen Performing Laboratory Blood [address] [address] Hepatitis A antibody, IgM (12/30/2017 3:17 PM) Component Value Ref Range Hep A IgM Nonreactive Nonreactive Specimen Performing Laboratory [address] [address] Hepatitis B core antibody, IgM (12/30/2017 3:17 PM) Component Value Ref Range Hep B C IgM Nonreactive Nonreactive Specimen Performing Laboratory Blood [address] [address] Hepatitis B core antibody, total (12/30/2017 3:17 PM) Component Value Ref Range Hep B Core Total Ab Nonreactive Nonreactive Specimen Performing Laboratory [address] [address] Vitamin D, 25-Hydroxy (12/30/2017 3:17 PM) Component Value Ref Range Vitamin D 25-Hydroxy 6.9 6.6 - 49.9 ng/mL Specimen Performing Laboratory Blood [address] [address] Narrative Effective 08/06/2017: Reference Range Change New: 6.6-49.9 ng/mL Previous: 13.0-47.8 ng/mL Recommended Vitamin D Target Range: 30.0-40.0 ng/mL RPR (12/30/2017 3:17 PM) Component Value Ref Range RPR Nonreactive Nonreactive Specimen Performing Laboratory [address] [address] Hepatitis B surface antibody (12/30/2017 3:17 PM) Component Value Ref Range Hep B S Ab <8.0 <8.0 mIU/mL Specimen Performing Laboratory [address] [address] Hepatitis B surface antigen (12/30/2017 3:17 PM) Component Value Ref Range hepatitis B Surface Ag Nonreactive Nonreactive Specimen Performing Laboratory [address] [address] Fibrinogen (12/30/2017 3:17 PM)Only the most recent of3 resultswithin the time period is included. Component Value Ref Range Fibrinogen 161 (L) 225 - 434 mg/dl Specimen Performing Laboratory [address] [address] T3 (12/30/2017 3:17 PM) Component Value Ref Range T3, Total 42 (L) 48 - 159 ng/dL Specimen Performing Laboratory [address] [address] Transferrin (12/30/2017 3:17 PM) Component Value Ref Range Transferrin 65 (L) 174 - 382 mg/dL Specimen Performing Laboratory [address] [address] Narrative Specimen slightly icteric TSH (12/30/2017 3:17 PM) Component Value Ref Range TSH 1.55 0.35 - 4.94 uIU/mL Specimen Performing Laboratory [address] [address] T4 (12/30/2017 3:17 PM) Component Value Ref Range T4, Total 3.5 (L) 4.9 - 11.7 ug/dL Specimen Performing Laboratory Blood [facility] [address] PSA (12/30/2017 3:17 PM) Component Value Ref Range PSA 0.1 0.0 - 4.0 ng/mL Specimen Performing Laboratory Blood [address] [address] Ferritin (12/30/2017 3:17 PM) Component Value Ref Range Ferritin 1460 (H) 5 - 275 ng/mL Specimen Performing Laboratory Blood [address] [address] Carcinoembryonic Antigen (CEA) (12/30/2017 3:17 PM) Component Value Ref Range CEA, SERUM 3.0 0.0 - 5.0 ng/mL Specimen Performing Laboratory Blood [address] [address] Cytomegalovirus antibody, IgM (12/30/2017 3:16 PM) Component Value Ref Range CMV IgM Negative Specimen Performing Laboratory Blood - Arm, [address] [address] Cryptococcal antigen (12/30/2017 3:16 PM) Component Value Ref Range Cryptococcal Antigen, Serum Negative Negative, Interference Specimen Performing Laboratory Blood - Arm, [address] [address] EBV-VCA antibody, IgM (12/30/2017 3:16 PM) Component Value Ref Range EBV VCA IgM Negative Specimen Performing Laboratory Blood - Arm, [address] [address] EBV-VCA antibody, IgG (12/30/2017 3:16 PM) Component Value Ref Range EBV VCA IgG Positive Specimen Performing Laboratory Blood - Arm, [address] [address] Cytomegalovirus antibody, IgG (12/30/2017 3:16 PM) Component Value Ref Range CMV IgG Positive Specimen Performing Laboratory Blood - Arm, [address] [address] Uric acid (12/30/2017 3:16 PM) Component Value Ref Range Uric Acid 8.5 (H) 2.6 - 7.2 mg/dL Specimen Performing Laboratory Blood - Arm, Right [address] [address] Narrative Specimen slightly icteric Lipid panel (12/30/2017 3:16 PM) Component Value Ref Range Triglycerides 38 mg/dL Cholesterol 51 mg/dL HDL 10 mg/dL LDL Calculated 33 mg/dL Specimen Performing Laboratory Blood - Arm, Right [address] [address] Narrative Triglyceride Reference Range: Low Risk <150 [id number] High Risk 200-499 Very High Risk>=500 Cholesterol Reference Range: Low Risk <200 [id number] High Risk>240 HDL Cholesterol Reference Range: Low Risk >=60 High Risk <40 LDL Cholesterol Reference Range: Optimal<100 Near Hthlcrx026-249 [id number] [id number] Very High >=190 Specimen slightly icteric Sodium, random urine (12/30/2017 5:14 AM) Component Value Ref Range Sodium Urine <20 meq/L Specimen Performing Laboratory Urine - Urine, Voided [address] [address] Narrative Reference Range: No Normals Protein, random urine (12/30/2017 5:14 AM) Component Value Ref Range Protein, Urine <7 0 - 14 mg/dL Specimen Performing Laboratory Urine - Urine, Voided [address] [address] Creatinine, random urine (12/30/2017 5:14 AM) Component Value Ref Range Creatinine, Ur 60.6 mg/dL Specimen Performing Laboratory Urine - Urine, Void[address] [address] Narrative Reference Range: No Normals Urinalysis w/Microscopic (12/30/2017 5:14 AM)Only the most recent of2 resultswithin the time period is included. Component Value Ref Range Color, UA Yellow Clarity, UA Clear Specific [place], UA 1.008 1.001 - 1.035 pH, UA 6.0 5.0 - 8.0 Protein, UA Negative Negative Glucose, UA Negative Negative Ketones, UA Negative Negative Bilirubin, UA Negative Negative Blood, UA Negative Negative Nitrite, UA Negative Negative Leukocytes, UA Negative Negative Urobilinogen, UA 0.2 0.2 - 1.0 mg/dL RBC, UA 0 /HPF WBC, UA 0 /HPF Hyaline Casts, UA 5 /LPF Specimen Source Urine, Voided Specimen Performing Laboratory Urine - Urine, Voided [address] [address] Drug screen, urine, transplant (12/29/2017 1:12 PM)Only the most recent of2 resultswithin the time period is included. Specimen Performing Laboratory Urine - Urine, [facility] [address] [place] [address] Ethanol (12/29/2017 12:33 PM) Component Value Ref Range Ethanol Lvl <10 <=10 mg/dL Specimen Performing Laboratory Blood - Arm, Right [address] [address] [address] abdomen/pelvis without iv contrast (12/28/2017 9:28 PM) Specimen Performing Laboratory [facility] Narrative FINAL REPORT EXAM: CT of the abdomen and pelvis, without contrast CLINICAL HISTORY: Paracentesis yesterday with acute drop in hemoglobin. TECHNIQUE: CT of the abdomen and pelvis was performed without the intravenous administration of contrast.This exam was performed according to our departmental dose optimization program which includes automated exposure control, adjustment of the mA and/or kV according to patient's size and/or use of iterative reconstructive technique. COMPARISON:CT abdomen and pelvis 02/11/2017. FINDINGS: Please note study is limited due to lack of intravenous contrast. LOWER CHEST: Bilateral gynecomastia. Atherosclerotic calcifications of the coronary arteries. LIVER: Cirrhotic morphology of the liver. BILE DUCTS: Within normal limits. GALL BLADDER: Cholelithiasis. PANCREAS: Within normal limits. SPLEEN: Mild splenomegaly. ADRENALS: Within normal limits. KIDNEYS/URETERS: Within normal limits. URINARY BLADDER: Apparent diffuse mural thickening is likely due to under distention. REPRODUCTIVE ORGANS: Within normal limits. BOWEL/MESENTERY: Few scattered colonic diverticula without acute diverticulitis. No bowel obstruction or abnormal wall thickening. Normal appendix. PERITONEUM/RETROPERITONEUM: Large abdominal and pelvic ascites, which measures simple fluid in attenuation. No retroperitoneal hematoma. No free air or fluid collection. VESSELS: Atherosclerotic calcifications of the aorta and branches. LYMPH NODES: No abdominal or pelvic lymphadenopathy. SOFT TISSUES: Small loculated ascites in the periumbilical region likely within an umbilical hernia BONES: Generalized osteopenia. No suspicious osseous lesions. IMPRESSION: Nonhemorrhagic large abdominal and pelvic ascites. No retroperitoneal hematoma. Cirrhosis. Mild hepatomegaly. Cholelithiasis. Signed: Aba Auguste MD Report Verified Date/Time:12/28/2017 22:20:52 Reading Location: [address] Transitional Reading Room Procedure Note Interface, External Ris In - 12/28/2017 10:23 PM SAFETY COMPANION FINAL REPORT EXAM: CT of the abdomen and pelvis, without contrast CLINICAL HISTORY: Paracentesis yesterday with acute drop in hemoglobin. TECHNIQUE: CT of the abdomen and pelvis was performed without the intravenous administration of contrast. This exam was performed according to our departmental dose optimization program which includes automated exposure control, adjustment of the mA and/or kV according to patient's size and/or use of iterative reconstructive technique. COMPARISON: CT abdomen and pelvis 02/11/2017. FINDINGS: Please note study is limited due to lack of intravenous contrast. LOWER CHEST: Bilateral gynecomastia. Atherosclerotic calcifications of the coronary arteries. LIVER: Cirrhotic morphology of the liver. BILE DUCTS: Within normal limits. GALL BLADDER: Cholelithiasis. PANCREAS: Within normal limits. SPLEEN: Mild splenomegaly. ADRENALS: Within normal limits. KIDNEYS/URETERS: Within normal limits. URINARY BLADDER: Apparent diffuse mural thickening is likely due to under distention. REPRODUCTIVE ORGANS: Within normal limits. BOWEL/MESENTERY: Few scattered colonic diverticula without acute diverticulitis. No bowel obstruction or abnormal wall thickening. Normal appendix. PERITONEUM/RETROPERITONEUM: Large abdominal and pelvic ascites, which measures simple fluid in attenuation. No retroperitoneal hematoma. No free air or fluid collection. VESSELS: Atherosclerotic calcifications of the aorta and branches. LYMPH NODES: No abdominal or pelvic lymphadenopathy. SOFT TISSUES: Small loculated ascites in the periumbilical region likely within an umbilical hernia BONES: Generalized osteopenia. No suspicious osseous lesions. IMPRESSION: Nonhemorrhagic large abdominal and pelvic ascites. No retroperitoneal hematoma. Cirrhosis. Mild hepatomegaly. Cholelithiasis. Signed: Aba Auguste MD Report Verified Date/Time: 12/28/2017 22:20:52 Reading Location: [address] Transitional Reading Room Alpha fetoprotein (AFP), tumor marker (12/28/2017 4:47 AM)Only the most recent of2 resultswithin the time period is included. Component Value Ref Range Alpha-Fetoprotein 4.1 <10.0 ng/mL Specimen Performing Laboratory Blood - Arm, Left [address] [address] Body fluid culture + gram stain (12/27/2017 7:03 PM)Only the most recent of2 resultswithin the time period is included. Component Value Ref Range Result No growth Gram Stain Result No WBCs Gram Stain Result No organisms seen Specimen Performing Laboratory Body Fluid - Ascites [address] [address] Albumin, body fluid (12/27/2017 7:03 PM) Component Value Ref Range Albumin, Fluid 0.4 gm/dL Specimen Performing Laboratory Body Fluid - Ascites [address] [address] Narrative Reference Range:No Normals Assay performance has not been validated for this type of specimen. Hepatic function panel (12/27/2017 9:55 AM)Only the most recent of12 resultswithin the time period is included. Component Value Ref Range Protein, Total 5.8 (L) 6.0 - 8.3 gm/dL Albumin 2.4 (L) 3.5 - 5.0 g/dL Total Bilirubin 4.1 (H) 0.2 - 1.2 mg/dL Bilirubin, Direct 3.1 (H) 0.1 - 0.5 mg/dL Alkaline Phosphatase 126 40 - 150 U/L AST 28 5 - 34 U/L ALT 13 6 - 55 U/L Specimen Performing Laboratory Blood - Arm, Left [address] [address] Narrative Specimen slightly icteric RHYTHM STRIP - SCAN (09/08/2017 12:02 PM)Only the most recent of2 resultswithin the time period is included.Rapid drug screen, urine (09/05/2017 6:02 PM) Component Value Ref Range Barbiturate Screen Negative Negative Benzodiazepine Screen Negative Negative Cocaine (Metab.) Screen Negative Negative Methadone Screen Negative Negative Opiate Screen Negative Negative Cannabinoid Screen Negative Negative Amph/Methamph Screen Negative Negative Phencyclidine Screen Negative Negative Oxycodone Screen Negative Negative Specimen Performing Laboratory Urine - Urine, Clean Catch [address] [address] Narrative DRUGCUTOFF CONC. Cocaine 300 ng/mL Oeammakhvoy70 ng/mL Bvzivfalercbyi917 ng/mL Barbiturate 200 ng/mL Cuxfgdhxaewvz92 ng/mL Vhyoej735 ng/mL Methadone 300 ng/mL Amphetamine/ 1000 ng/mL Methamphetamine Oxycodone 300 ng/mL This assay provides an unconfirmed qualitative test result for the clinical management of patients in emergency situations. Chain of custody not maintained. Some sniq-zaj-fnauzez medications, as well as adulterants, may cause inaccurate results. Clinical correlation should be applied. A more comprehensive drug screen or confirmation of a detected drug may be performed upon request. MR abdomen without & with IV contrast (09/05/2017 12:11 PM) Specimen Performing Laboratory [facility] Narrative FINAL REPORT MRI of the abdomen with and without contrast Reason for study: Liver protocol, cirrhosis Comparison: CT, 02/11/2017; abdominal Doppler ultrasound, 02/03/2017 Technique: Multisequence, multiplanar MRI of the abdomen was performed before and after intravenous gadolinium contrast injection. Findings: The liver is cirrhotic. No abnormally enhancing liver mass is seen. There are bandlike areas of hypervascularity which probably represent areas of altered perfusion. A tiny cyst is identified in the anterior right hepatic lobe. The portal venous system is patent. The main portal vein measures 2.2 cm in caliber proximally. [...] should be closely followed. Signed: Ten Mcgarry MD Report Verified Date/Time:09/05/2017 13:52:35 Reading Location: [facility] C013Y CT Body Reading Room Procedure Note Interface, External Ris In - 09/05/2017 1:54 PM [employer] FINAL REPORT MRI of the abdomen with and without contrast Reason for study: Liver protocol, cirrhosis Comparison: CT, 02/11/2017; abdominal Doppler ultrasound, 02/03/2017 Technique: Multisequence, multiplanar MRI of the abdomen was performed before and after intravenous gadolinium contrast injection. Findings: The liver is cirrhotic. No abnormally enhancing liver mass is seen. There are bandlike areas of hypervascularity which probably represent areas of altered perfusion. A tiny cyst is identified in the anterior right hepatic lobe. The portal venous system is patent. The main portal vein measures 2.2 cm in caliber proximally. [...] should be closely followed. Signed: Ten Mcgarry MD Report Verified Date/Time: 09/05/2017 13:52:35 Reading Location: [facility] B1 C013Y CT Body Reading Room Blood culture #2 (09/03/2017 10:15 PM)Only the most recent of4 resultswithin the time period is included. Component Value Ref Range Result No growth in 5 days Specimen Performing Laboratory Blood - Arm, [address] [address] Gamma Glutamyl Transferase (GGT) (07/24/2017 2:42 PM) Component Value Ref Range GGT 17 9 - 64 U/L Specimen Performing Laboratory Blood [address] [address] Narrative Specimen moderately icteric Vancomycin level, trough (02/16/2017 4:23 PM) Component Value Ref Range Vancomycin Tr 12.2 10.0 - 20.0 ug/mL Specimen Performing Laboratory Blood - Arm, Left [address] [address] TSH/Free T4 If Indicated (02/16/2017 12:29 PM) Component Value Ref Range TSH 3.53 0.35 - 4.94 uIU/mL Specimen Performing Laboratory Blood - Arm, Left [address] [address] Urinalysis w/Microscopic + Reflex to Culture (02/15/2017 5:03 AM) Component Value Ref Range Color, UA Yellow Clarity, UA Clear Specific [place], UA 1.006 1.001 - 1.035 pH, UA 6.5 5.0 - 8.0 Protein, UA Negative Negative Glucose, UA Negative Negative Ketones, UA Negative Negative Bilirubin, UA Negative Negative Blood, UA Negative Negative Nitrite, UA Negative Negative Leukocytes, UA Small (A) Negative Urobilinogen, UA 0.2 0.2 - 1.0 mg/dL RBC, UA 1 /HPF WBC, UA 6 /HPF Bacteria, UA Rare Specimen Source Specimen Performing Laboratory Urine - Urine, Voided [address] [address] Urine culture (02/15/2017 5:03 AM)Only the most recent of2 resultswithin the time period is included. Component Value Ref Range Result No growth Specimen Performing Laboratory Urine - Urine, Voided [address] [address] XR chest 1 view portable / bedside (02/14/2017 10:28 AM) Specimen Performing Laboratory [facility] Narrative FINAL REPORT Chest, portable AP view History: Fever Comparison: CT of the chest dated 02/11/2017, chest radiograph dated 02/02/2017 IMPRESSION: The cardiomediastinal silhouette and pulmonary vasculature are within normal limits. The lungs are clear without evidence of consolidation or effusion.There are no acute osseous abnormalities. The soft tissues are unremarkable. Signed: Paul Butler MD Report Verified Date/Time:02/14/2017 10:49:25 Reading Location: [facility] Radiology Reading Room Procedure Note Interface, External Ris In - 02/14/2017 10:51 AM CDT FINAL REPORT Chest, portable AP view History: Fever Comparison: CT of the chest dated 02/11/2017, chest radiograph dated 02/02/2017 IMPRESSION: The cardiomediastinal silhouette and pulmonary vasculature are within normal limits. The lungs are clear without evidence of consolidation or effusion. There are no acute osseous abnormalities. The soft tissues are unremarkable. Signed: Paul Butler MD Report Verified Date/Time: 02/14/2017 10:49:25 Reading Location: [facility] Radiology Reading Room Procalcitonin (02/14/2017 5:53 AM) Component Value Ref Range Procalcitonin 0.25 (H) <0.05 ng/mL Specimen Performing Laboratory Blood - Arm, [facility] [address] [place] [address] Narrative SEPSIS RISK (ng/mL) Low:0.05-0.50 Intermediate: 0.51-2.00 High: >=2.01 Prepare cryoprecipitate (02/13/2017 6:54 PM)Only the most recent of2 resultswithin the time period is included. Component Value Ref Range Unit ABO O Pos UNIT NUMBER [id number]^CRYO POOLED THAWED Status TRANSFUSED Blood Bank Product CRYOPRECIPITATE PRODUCT CODE O5432T41 Unit ABO O Pos UNIT NUMBER [id number]^CRYO POOLED THAWED Status TRANSFUSED Blood Bank Product CRYOPRECIPITATE PRODUCT CODE [id number] Specimen Performing Laboratory Blood Histoplasma antigen, urine (02/13/2017 4:15 AM) Component Value Ref Range Scan Result Histoplasma Antigen <0.5 ng/mL Comment: REFERENCE RANGE: <0.5 ng/mL Histoplasma galactomannan is frequently detected in urine from patients with disseminated histoplasmosis. However, a negative result does not exclude a diagnosis of histoplasmosis. Many patients with acute pulmonary disease or chronic cavitary disease do not exhibit antigenuria. Galactomannan levels in urine typically decrease with successful treatment. Specimens from patients with other endemic mycoses, such as blastomycosis, coccidioidomycosis, or aspergillosis, may also be positive in this assay. This test should be used in conjunction with other diagnostics tests, including culture, molecular assays, and histology in making a final diagnosis. This test was developed and its analytical performance characteristics have been determined by [email or web address]. It has not been cleared or approved by the U.S. Food and Drug Administration.The FDA has determined that such clearance or approval is not necessary. This assay has been validated pursuant to the CLIA regulations andis used for clinical purposes. Specimen Performing Laboratory Urine - Urine, [facility] [id number] [place] [address] Narrative Performing Lab *[facility] [address] [place] [phone] Tina Wilson MD Prepare plasma (02/12/2017 11:54 PM) Component Value Ref Range Unit ABO A Pos UNIT NUMBER [id number]^THAWED PLASMA Status WORK IN PROGRESS Blood Bank Product FFP PRODUCT CODE M3544G41 Unit ABO A Pos UNIT NUMBER [id number]^THAWED PLASMA Status CANCELED Blood Bank Product FFP PRODUCT CODE [id number] Unit ABO A Pos UNIT NUMBER [id number]^THAWED PLASMA Status CANCELED Blood Bank Product FFP PRODUCT CODE [id number] Unit ABO A Pos UNIT NUMBER [id number]^THAWED PLASMA Status TRANSFUSED Blood Bank Product FFP PRODUCT CODE [id number] Unit ABO A Pos UNIT NUMBER [id number]^THAWED PLASMA Status READY Blood Bank Product FFP PRODUCT CODE [id number] Specimen Performing Laboratory Blood Lactic acid, venous, whole blood (02/12/2017 5:49 AM) Component Value Ref Range Lactate, Venous 1.0 0.5 - 2.2 mmol/L Specimen Performing Laboratory Blood [facility] [address] [address] Narrative Effective 02/28/2016: Units/Reference Range Change New: 0.5-2.2 mmol/LPrevious: 5-20 mg/dL Specimen moderately icteric Platelet count (02/12/2017 5:49 AM) Component Value Ref Range Platelets 104 (L) 150 - 430 K/CU MM Specimen Performing Laboratory Blood [address] [address] T Spot TB (02/12/2017 5:40 AM) Component Value Ref Range T-Spot TB Negative Neg Ctrl Spot Count 0 Panel A Spot 0 Panel B Spot [address] >20 Scan Result Specimen Performing Laboratory Blood [facility] [address], [address] [place] [address] Coccidioides antibodies (02/12/2017 5:40 AM) Component Value Ref Range Coccidioides Ab,Id NEGATIVE Comment: REFERENCE RANGE:NEGATIVE INTERPRETIVE CRITERIA: NEGATIVE:Antibody Not Detected POSITIVE:Antibody Detected The immunodiffusion (ID) procedure correlates both in sensitivity and clinical utility with the CF test. The ID test, which detects IgG directed to the "F" antigen, becomes positive within 4 weeks after infection and remains positive throughout clinically active disease. It is most useful in confirming the specificity of low CF titers, where line(s) of identity are formed with reference antisera. Positive ID reactions are diagnostic for coccidioidomycosis and usually indicate active or recent disease and remain detectable for up to 1 year thereafter. Specimen Performing Laboratory Blood [facility] [address] [address] Narrative Performing Lab *[facility] [address] [place] [phone] Tina Wilson MD aPTT (02/12/2017 5:40 AM) Component Value Ref Range PTT 48.1 (H) 22.5 - 36.0 seconds Specimen Performing Laboratory Blood [address] [address] Anti-Nuclear Antibody (CHERYL) (02/12/2017 5:40 AM) Component Value Ref Range CHERYL Negative Negative Specimen Performing Laboratory Blood [address] [address] after 02/12/2017
--- OUTSIDE RECORDS SUMMARY | 2018-02-13 23:08 | XMS REPORT ---
:1965 [facility] Address [address] [place] [address] [address] [place] [address] Care Team Providers Name Role Phone ISABELLAANJELICA Unavailable Unavailable WAYNE HEATH Unavailable Unavailable TOMASZ ENRIQUEZ Unavailable Unavailable LORENBETH Allen Unavailable Unavailable Problems This patient has no known problems. Allergies, Adverse Reactions, Alerts This patient has no known allergies or adverse reactions. Medications This patient has no known medications. Results Test Description Test Time Test Comments Text Results Atomic Results Result Comments COMPREHENSIVE METABOLIC PANEL 2018-02-03 15:06:00 Test Item Value Reference Range Comments TOTAL PROTEIN (BEAKER) (test 6.5 gm/dL 6.0-8.3 afhm=439) ALBUMIN (BEAKER) (test 3.7 g/dL 3.5-5.0 fdte=1171) ALKALINE PHOSPHATASE 135 U/L 40-150 (BEAKER) (test qcoy=010) BILIRUBIN TOTAL (BEAKER) 4.5 mg/dL 0.2-1.2 (test orso=243) SODIUM (BEAKER) (test 131 meq/L 136-145 xfku=071) POTASSIUM (BEAKER) (test 5.8 meq/L 3.5-5.1 dgit=840) CHLORIDE (BEAKER) (test 103 meq/L 98-107 yjhx=375) CO2 (BEAKER) (test xaxs=999) 24 meq/L 22-29 BLOOD UREA NITROGEN (BEAKER) 27 mg/dL 7-21 (test jiwp=019) CREATININE (BEAKER) (test 1.17 mg/dL 0.57-1.25 kmbl=184) GLUCOSE RANDOM (BEAKER) 111 mg/dL 70-105 (test pngk=602) CALCIUM (BEAKER) (test 11.0 mg/dL 8.4-10.2 bmqm=692) AST (SGOT) (BEAKER) (test 28 U/L 5-34 zast=947) ALT (SGPT) (BEAKER) (test 19 U/L 6-55 dqdk=788) EGFR (BEAKER) (test 65 mL/min/1.73 sq m ESTIMATED GFR IS NOT ydhn=8897) ACCURATE CREATININE CLEARANCE IN PREDICTING GLOMERULAR FILTRATION RATE. ESTIMATED GFR IS NOT APPLICABLE FOR DIALYSIS PATIENTS. Specimen slightly ictericBILIRUBIN, [id number] 15:06:00 Test Item Value Reference Range Comments BILIRUBIN DIRECT (BEAKER) (test iubf=950) 3.0 mg/dL 0.1-0.5 PROTHROMBIN [id number] 14:42:00 Test Item Value Reference Range Comments PROTIME (BEAKER) (test byeq=206) 19.1 seconds 11.7-14.7 INR (BEAKER) (test andw=838) 1.6 <=5.9 RECOMMENDED COUMADIN/WARFARIN INR THERAPY RANGESSTANDARD DOSE: 2.0 - 3.0 Includes: PROPHYLAXIS forvenous thrombosis, systemic embolization; TREATMENT for venous thrombosis and/or pulmonary embolus.HIGH RISK: Target INR is 2.5-3.5 for patients with mechanical heart valves.CBC W/PLT COUNT & AUTO [id number] 14:36:00 Test Item Value Reference Range Comments WHITE BLOOD CELL COUNT (BEAKER) (test alxe=066) 5.5 K/ L 3.5-10.5 RED BLOOD CELL COUNT (BEAKER) (test ddue=501) 2.84 M/ L 4.63-6.08 HEMOGLOBIN (BEAKER) (test jxym=384) 9.5 GM/DL 13.7-17.5 HEMATOCRIT (BEAKER) (test reiw=303) 28.8 % 40.1-51.0 MEAN CORPUSCULAR VOLUME (BEAKER) (test sroc=145) 101.4 fL 79.0-92.2 MEAN CORPUSCULAR HEMOGLOBIN (BEAKER) (test 33.5 pg 25.7-32.2 wxfb=426) MEAN CORPUSCULAR HEMOGLOBIN CONC (BEAKER) (test 33.0 GM/DL 32.3-36.5 irlw=805) RED CELL DISTRIBUTION WIDTH (BEAKER) (test 19.4 % 11.6-14.4 gujd=480) PLATELET COUNT (BEAKER) (test kktk=776) 65 K/CU MM 150-450 MEAN PLATELET VOLUME (BEAKER) (test runm=806) 8.8 fL 9.4-12.4 NUCLEATED RED BLOOD CELLS (BEAKER) (test 0 /100 WBC 0-0 dfox=758) NEUTROPHILS RELATIVE PERCENT (BEAKER) (test 66 % fsbc=343) LYMPHOCYTES RELATIVE PERCENT (BEAKER) (test 14 % fvii=527) MONOCYTES RELATIVE PERCENT (BEAKER) (test 15 % deod=812) EOSINOPHILS RELATIVE PERCENT (BEAKER) (test 4 % wwjl=075) BASOPHILS RELATIVE PERCENT (BEAKER) (test 0 % ghuu=246) NEUTROPHILS ABSOLUTE COUNT (BEAKER) (test 3.58 K/ L 1.78-5.38 zwqm=801) LYMPHOCYTES ABSOLUTE COUNT (BEAKER) (test 0.78 K/ L 1.32-3.57 wlae=161) MONOCYTES ABSOLUTE COUNT (BEAKER) (test cptw=486) 0.79 K/ L 0.30-0.82 EOSINOPHILS ABSOLUTE COUNT (BEAKER) (test 0.23 K/ L 0.04-0.54 uqjr=996) BASOPHILS ABSOLUTE COUNT (BEAKER) (test zvga=039) 0.02 K/ L 0.01-0.08 IMMATURE GRANULOCYTES-RELATIVE PERCENT (BEAKER) 1 % 0-1 (test thny=0871) RAD, KNEE, COMPLETE (4 VIEWS), [id number] 11:15:00Reason for exam:->FALL , PAINFINAL REPORT Bilateral knee series INDICATION: Fall , pain COMPARISON: None available IMPRESSION: Four images of the right knee and four images of the left knee are provided. The bones appear demineralized. No evident acute fracture or dislocation is seen bilaterally. Mild joint space loss suggests degenerative arthritic changes. Small knee joint effusions are suspected. There are extensive bilateral vascular calcifications. Signed: Tatiana Quezada Verified Date/Time: 01/06/2018 11:15:08 Reading Location: [facility] Radiology Reading Room RAD, KNEE, COMPLETE (4 VIEWS), [id number] 11:15:00Reason for exam:->FALL, PAINFINAL REPORT Bilateral knee series INDICATION: Fall, pain [...] MDReport Verified Date/Time: 01/06/2018 11:15:08 Reading Location: [facility] Radiology Reading Room CBC W/PLT COUNT & AUTO [id number] 10: 58:00 Test Item Value Reference Range Comments WHITE BLOOD CELL COUNT (BEAKER) (test rlco=775) 2.9 K/ L 3.5-10.5 RED BLOOD CELL COUNT (BEAKER) (test cmjk=628) 2.27 M/ L 4.63-6.08 HEMOGLOBIN (BEAKER) (test uflk=022) 7.1 GM/DL 13.7-17.5 HEMATOCRIT (BEAKER) (test btrf=887) 21.0 % 40.1-51.0 MEAN CORPUSCULAR VOLUME (BEAKER) (test luhg=249) 92.5 fL 79.0-92.2 MEAN CORPUSCULAR HEMOGLOBIN (BEAKER) (test 31.3 pg 25.7-32.2 mfnh=077) MEAN CORPUSCULAR HEMOGLOBIN CONC (BEAKER) (test 33.8 GM/DL 32.3-36.5 zrxw=255) RED CELL DISTRIBUTION WIDTH (BEAKER) (test 17.2 % 11.6-14.4 bfwv=817) PLATELET COUNT (BEAKER) (test rans=636) 42 K/CU MM 150-450 MEAN PLATELET VOLUME (BEAKER) (test qxmg=431) 10.1 fL 9.4-12.4 NUCLEATED RED BLOOD CELLS (BEAKER) (test 0 /100 WBC 0-0 yopk=098) NEUTROPHILS RELATIVE PERCENT (BEAKER) (test 77 % csla=467) LYMPHOCYTES RELATIVE PERCENT (BEAKER) (test 12 % trnc=083) MONOCYTES RELATIVE PERCENT (BEAKER) (test 10 % eatn=502) EOSINOPHILS RELATIVE PERCENT (BEAKER) (test 1 % pxjf=962) BASOPHILS RELATIVE PERCENT (BEAKER) (test 0 % nnbe=625) NEUTROPHILS ABSOLUTE COUNT (BEAKER) (test 2.21 K/ L 1.78-5.38 efyj=717) LYMPHOCYTES ABSOLUTE COUNT (BEAKER) (test 0.33 K/ L 1.32-3.57 ezek=380) MONOCYTES ABSOLUTE COUNT (BEAKER) (test bwqu=565) 0.30 K/ L 0.30-0.82 EOSINOPHILS ABSOLUTE COUNT (BEAKER) (test 0.03 K/ L 0.04-0.54 jgob=797) BASOPHILS ABSOLUTE COUNT (BEAKER) (test tcdd=122) 0.00 K/ L 0.01-0.08 IMMATURE GRANULOCYTES-RELATIVE PERCENT (BEAKER) 0 % 0-1 (test qdsl=4433) [id number] 06:06:00 Test Item Value Reference Range Comments PHOSPHORUS (BEAKER) (test nydf=319) 3.6 mg/dL 2.3-4.7 [id number] 06:06:00 Test Item Value Reference Range Comments MAGNESIUM (BEAKER) (test uude=738) 2.0 mg/dL 1.6-2.6 BASIC METABOLIC [id number] 06:06:00 Test Item Value Reference Range Comments SODIUM (BEAKER) (test 130 meq/L 136-145 iorc=247) POTASSIUM (BEAKER) (test 4.4 meq/L 3.5-5.1 ifqk=540) CHLORIDE (BEAKER) (test 100 meq/L 98-107 gosz=557) CO2 (BEAKER) (test 23 meq/L 22-29 cupq=125) BLOOD UREA NITROGEN 21 mg/dL 7-21 (BEAKER) (test smrd=159) CREATININE (BEAKER) (test 1.11 mg/dL 0.57-1.25 ffsk=541) GLUCOSE RANDOM (BEAKER) 120 mg/dL 70-105 (test rkit=135) CALCIUM (BEAKER) (test 9.4 mg/dL 8.4-10.2 zalz=059) EGFR (BEAKER) (test 70 mL/min/1.73 sq m ESTIMATED GFR IS NOT nwhn=7976) ACCURATE CREATININE CLEARANCE IN PREDICTING GLOMERULAR FILTRATION RATE. ESTIMATED GFR IS NOT APPLICABLE FOR DIALYSIS PATIENTS. Specimen slightly ictericPROTHROMBIN [id number] 06:02:00 Test Item Value Reference Range Comments PROTIME (BEAKER) (test llzk=685) 22.9 seconds 11.7-14.7 INR (BEAKER) (test poeq=930) 2.0 <=5.9 RECOMMENDED COUMADIN/WARFARIN INR THERAPY RANGESSTANDARD DOSE: 2.0 - 3.0 Includes: PROPHYLAXIS forvenous thrombosis, systemic embolization; TREATMENT for venous thrombosis and/or pulmonary embolus.HIGH RISK: Target INR is 2.5-3.5 for patients with mechanical heart valves.CALCIUM, [id number] 06:01:00 Test Item Value Reference Range Comments CALCIUM IONIZED (BEAKER) (test lalf=509) 1.11 mmol/L 1.12-1.27 PH, BLOOD (BEAKER) (test iuam=1207) 7.53 CORTISOL,60 [id number] 23:20:00 Test Item Value Reference Range Comments CORTISOL BASELINE NETWORKED (BEAKER) (test 4.8 mcg/dL iqjr=5922) CORTISOL 30 MINUTE NETWORKED (BEAKER) (test 9.2 mcg/dL jxte=0772) CORTISOL, 60 MINUTE (BEAKER) (test kkvw=9596) 12.6 ug/dL ACTH STIMULATION TEST INTERPRETATION GUIDELINES(Synonyms: [...] serum cortisollevel 60 minutes after cosyntropin administration.CORTISOL,30 [id number] 22:35:00 Test Item Value Reference Range Comments CORTISOL BASELINE NETWORKED (BEAKER) (test 4.8 mcg/dL ifcu=3005) CORTISOL, 30 MINUTE (BEAKER) (test iwok=9097) 9.2 ug/dL ACTH STIMULATION TEST INTERPRETATION GUIDELINES(Synonyms: [...] Draw serum cortisollevel 60 minutes after cosyntropin administration.CORTISOL,[id number] 22:35:00 Test Item Value Reference Range Comments CORTISOL, BASELINE (TUNG) (test hiyj=8307) 4.8 ug/dL ACTH STIMULATION TEST INTERPRETATION GUIDELINES(Synonyms: [...] study by Mindy et al (NEVAEH 2000,283( 8):7262-45), the ACTH Stimulation Test provides important prognostic [...] serum cortisollevel 60 minutes after cosyntropin administration.U/S, [id number] 17:54:00Reason for exam:->therapeuticFINAL REPORT History: Ascites. PROCEDURE: Following informed written consent,the patient's right lower quadrant was prepped and draped in the usual sterile manner. 2% lidocaine was given locally for anesthesia. No conscious sedation was administered. Using ultrasound guidance, a 5 [place]uv[place] one-step catheter was advanced percutaneously into the [...] Successful uncomplicated ultrasound-guided paracentesis. Signed: Karina Rain Verified Date/Time: 01/05/2018 17: 54:16 Reading Location: [facility] [id number] Ultrasound Reading Room [id number] 11:19:00 Test Item Value Reference Range Comments CORTISOL, TOTAL (BEAKER) (test nzcj=0244) 2.7 ug/dL 3.7-19.4 [id number] 10:21:00 Test Item Value Reference Range Comments PHOSPHORUS (BEAKER) (test wnct=403) 2.8 mg/dL 2.3-4.7 [id number] 10:21:00 Test Item Value Reference Range Comments MAGNESIUM (BEAKER) (test ibiy=604) 1.9 mg/dL 1.6-2.6 BASIC METABOLIC [id number] 10:21:00 Test Item Value Reference Range Comments SODIUM (BEAKER) (test 127 meq/L 136-145 nonw=138) POTASSIUM (BEAKER) (test 5.0 meq/L 3.5-5.1 fjxm=343) CHLORIDE (BEAKER) (test 100 meq/L 98-107 vfng=758) CO2 (BEAKER) (test 22 meq/L 22-29 lilb=468) BLOOD UREA NITROGEN 25 mg/dL 7-21 (BEAKER) (test dfiu=991) CREATININE (BEAKER) (test 1.17 mg/dL 0.57-1.25 ascc=919) GLUCOSE RANDOM (BEAKER) 84 mg/dL 70-105 (test kbxa=721) CALCIUM (BEAKER) (test 8.7 mg/dL 8.4-10.2 gbti=478) EGFR (BEAKER) (test 65 mL/min/1.73 sq m ESTIMATED GFR IS NOT xxfu=0099) ACCURATE CREATININE CLEARANCE IN PREDICTING GLOMERULAR FILTRATION RATE. ESTIMATED GFR IS NOT APPLICABLE FOR DIALYSIS PATIENTS. Specimen slightly ictericCBC W/PLT COUNT & AUTO [id number] 08:42 :00 Test Item Value Reference Range Comments WHITE BLOOD CELL COUNT (BEAKER) (test jobm=848) 2.7 K/ L 3.5-10.5 RED BLOOD CELL COUNT (BEAKER) (test bppo=047) 2.33 M/ L 4.63-6.08 HEMOGLOBIN (BEAKER) (test ksmt=342) 7.3 GM/DL 13.7-17.5 HEMATOCRIT (BEAKER) (test abaa=310) 22.0 % 40.1-51.0 MEAN CORPUSCULAR VOLUME (BEAKER) (test xpfz=314) 94.4 fL 79.0-92.2 MEAN CORPUSCULAR HEMOGLOBIN (BEAKER) (test 31.3 pg 25.7-32.2 smyy=922) MEAN CORPUSCULAR HEMOGLOBIN CONC (BEAKER) (test 33.2 GM/DL 32.3-36.5 zrul=301) RED CELL DISTRIBUTION WIDTH (BEAKER) (test 17.2 % 11.6-14.4 tiim=954) PLATELET COUNT (BEAKER) (test lnny=099) 45 K/CU MM 150-450 MEAN PLATELET VOLUME (BEAKER) (test httz=745) 9.3 fL 9.4-12.4 NUCLEATED RED BLOOD CELLS (BEAKER) (test 0 /100 WBC 0-0 nfow=887) NEUTROPHILS RELATIVE PERCENT (BEAKER) (test 60 % bfne=534) LYMPHOCYTES RELATIVE PERCENT (BEAKER) (test 17 % mskx=037) MONOCYTES RELATIVE PERCENT (BEAKER) (test 16 % oygj=053) EOSINOPHILS RELATIVE PERCENT (BEAKER) (test 6 % nrsj=062) BASOPHILS RELATIVE PERCENT (BEAKER) (test 0 % khth=714) NEUTROPHILS ABSOLUTE COUNT (BEAKER) (test 1.63 K/ L 1.78-5.38 jsls=704) LYMPHOCYTES ABSOLUTE COUNT (BEAKER) (test 0.45 K/ L 1.32-3.57 gscp=776) MONOCYTES ABSOLUTE COUNT (BEAKER) (test hnxq=512) 0.44 K/ L 0.30-0.82 EOSINOPHILS ABSOLUTE COUNT (BEAKER) (test 0.16 K/ L 0.04-0.54 twoq=037) BASOPHILS ABSOLUTE COUNT (BEAKER) (test fvpp=350) 0.01 K/ L 0.01-0.08 IMMATURE GRANULOCYTES-RELATIVE PERCENT (BEAKER) 1 % 0-1 (test xbzt=8315) (MANUAL DIFFERENTIAL)2018-01-05 08:42:00 Test Item Value Reference Range Comments TOTAL COUNTED (BEAKER) (test wkun=5856) WBC MORPHOLOGY (BEAKER) (test tvnq=755) Normal PLT MORPHOLOGY (BEAKER) (test riod=739) Normal ANISOCYTOSIS (BEAKER) (test hmdj=031) 1+ few CALCIUM, [id number] 08:10:00 Test Item Value Reference Range Comments CALCIUM IONIZED (BEAKER) (test lbms=017) 1.08 mmol/L 1.12-1.27 PH, BLOOD (BEAKER) (test jfsq=4248) 7.44 PROTHROMBIN [id number] 07:12:00 Test Item Value Reference Range Comments PROTIME (BEAKER) (test hgxh=661) 22.4 seconds 11.7-14.7 INR (BEAKER) (test obmi=903) 2.0 <=5.9 RECOMMENDED COUMADIN/WARFARIN INR THERAPY RANGESSTANDARD DOSE: 2.0 - 3.0 Includes: PROPHYLAXIS forvenous thrombosis, systemic embolization; TREATMENT for venous thrombosis and/or pulmonary embolus.HIGH RISK: Target INR is 2.5-3.5 for patients with mechanical heart valves.[id number] 17:54:00 Test Item Value Reference Range Comments SODIUM (BEAKER) (test lldt=761) 129 meq/L 136-145 POTASSIUM (BEAKER) (test ells=362) 5.5 meq/L 3.5-5.1 CHLORIDE (BEAKER) (test prjf=016) 101 meq/L 98-107 CO2 (BEAKER) (test ifnj=742) 26 meq/L 22-29 Call [id number] with resultsCBC (HEMOGRAM ONLY)2018-01-04 07:16:00 Test Item Value Reference Range Comments WHITE BLOOD CELL COUNT (BEAKER) (test axdr=578) 2.9 K/ L 3.5-10.5 RED BLOOD CELL COUNT (BEAKER) (test uask=289) 2.25 M/ L 4.63-6.08 HEMOGLOBIN (BEAKER) (test lhgk=706) 7.3 GM/DL 13.7-17.5 HEMATOCRIT (BEAKER) (test rjer=078) 21.3 % 40.1-51.0 MEAN CORPUSCULAR VOLUME (BEAKER) (test ldai=739) 94.7 fL 79.0-92.2 MEAN CORPUSCULAR HEMOGLOBIN (BEAKER) (test 32.4 pg 25.7-32.2 hdtp=093) MEAN CORPUSCULAR HEMOGLOBIN CONC (BEAKER) (test 34.3 GM/DL 32.3-36.5 fyqs=576) RED CELL DISTRIBUTION WIDTH (BEAKER) (test 17.6 % 11.6-14.4 shio=017) PLATELET COUNT (BEAKER) (test higu=747) 59 K/CU MM 150-450 MEAN PLATELET VOLUME (BEAKER) (test xpjl=909) 11.3 fL 9.4-12.4 NUCLEATED RED BLOOD CELLS (BEAKER) (test 0 /100 WBC 0-0 hlgd=775) COMPREHENSIVE METABOLIC [id number] 06:49:00 Test Item Value Reference Range Comments TOTAL PROTEIN (BEAKER) 5.3 gm/dL 6.0-8.3 Specimen slightly (test pkyk=389) hemolyzed ALBUMIN (BEAKER) (test 3.3 g/dL 3.5-5.0 Specimen slightly uffm=2408) hemolyzed ALKALINE PHOSPHATASE 81 U/L 40-150 (BEAKER) (test vvnj=308) BILIRUBIN TOTAL (BEAKER) 2.4 mg/dL 0.2-1.2 Specimen slightly (test zhcj=151) hemolyzed SODIUM (BEAKER) (test 127 meq/L 136-145 eymg=300) POTASSIUM (BEAKER) (test 5.7 meq/L 3.5-5.1 Specimen slightly yvcr=132) hemolyzed CHLORIDE (BEAKER) (test 100 meq/L 98-107 tmdk=303) CO2 (BEAKER) (test 20 meq/L 22-29 ypip=259) BLOOD UREA NITROGEN 22 mg/dL 7-21 (BEAKER) (test hjgz=787) CREATININE (BEAKER) (test 1.14 mg/dL 0.57-1.25 Specimen slightly jmem=484) hemolyzed GLUCOSE RANDOM (BEAKER) 96 mg/dL 70-105 (test qjxo=761) CALCIUM (BEAKER) (test 8.9 mg/dL 8.4-10.2 ysgj=791) AST (SGOT) (BEAKER) (test 30 U/L 5-34 Specimen slightly wxbv=507) hemolyzed ALT (SGPT) (BEAKER) (test 8 U/L 6-55 Specimen slightly yaxv=673) hemolyzed EGFR (BEAKER) (test 67 mL/min/1.73 sq m ESTIMATED GFR IS NOT fwun=4930) ACCURATE CREATININE CLEARANCE IN PREDICTING GLOMERULAR FILTRATION RATE. ESTIMATED GFR IS NOT APPLICABLE FOR DIALYSIS PATIENTS. Specimen slightly ictericPROTHROMBIN [id number] 06:15:00 Test Item Value Reference Range Comments PROTIME (BEAKER) (test ostb=697) 22.7 seconds 11.7-14.7 INR (BEAKER) (test byhx=763) 2.0 <=5.9 RECOMMENDED COUMADIN/WARFARIN INR THERAPY RANGESSTANDARD DOSE: 2.0 - 3.0 Includes: PROPHYLAXIS forvenous thrombosis, systemic embolization; TREATMENT for venous thrombosis and/or pulmonary embolus.HIGH RISK: Target INR is 2.5-3.5 for patients with mechanical heart valves.VITAMIN B12 AND [id number] 16:39 :00 Test Item Value Reference Range Comments VITAMIN B12 (BEAKER) (test mrhi=122) 829 pg/mL 213-816 FOLATE (BEAKER) (test quwm=105) 18.9 ng/mL >=7.0 CALCIUM, [id number] 07:14:00 Test Item Value Reference Range Comments CALCIUM IONIZED (BEAKER) (test fuxu=809) 1.08 mmol/L 1.12-1.27 PH, BLOOD (BEAKER) (test tpcf=6848) 7.41 COMPREHENSIVE METABOLIC [id number] 07:00:00 Test Item Value Reference Range Comments TOTAL PROTEIN (BEAKER) 5.0 gm/dL 6.0-8.3 (test vmxj=601) ALBUMIN (BEAKER) (test 3.1 g/dL 3.5-5.0 mjae=0420) ALKALINE PHOSPHATASE 65 U/L 40-150 (BEAKER) (test yfco=901) BILIRUBIN TOTAL (BEAKER) 2.5 mg/dL 0.2-1.2 (test vyzw=648) SODIUM (BEAKER) (test 127 meq/L 136-145 pjwd=653) POTASSIUM (BEAKER) (test 4.7 meq/L 3.5-5.1 glsj=091) CHLORIDE (BEAKER) (test 99 meq/L 98-107 wfyc=103) CO2 (BEAKER) (test 23 meq/L 22-29 weqt=447) BLOOD UREA NITROGEN 21 mg/dL 7-21 (BEAKER) (test mexh=492) CREATININE (BEAKER) (test 1.13 mg/dL 0.57-1.25 bqwp=492) GLUCOSE RANDOM (BEAKER) 92 mg/dL 70-105 (test lfxc=220) CALCIUM (BEAKER) (test 8.9 mg/dL 8.4-10.2 ifbj=968) AST (SGOT) (BEAKER) (test 18 U/L 5-34 ycbx=190) ALT (SGPT) (BEAKER) (test 8 U/L 6-55 qidg=649) EGFR (BEAKER) (test 68 mL/min/1.73 sq m ESTIMATED GFR IS NOT tpwh=3585) ACCURATE CREATININE CLEARANCE IN PREDICTING GLOMERULAR FILTRATION RATE. ESTIMATED GFR IS NOT APPLICABLE FOR DIALYSIS PATIENTS. [id number] 06:37:00 Test Item Value Reference Range Comments PHOSPHORUS (BEAKER) (test ybgr=618) 3.2 mg/dL 2.3-4.7 [id number] 06:37:00 Test Item Value Reference Range Comments MAGNESIUM (BEAKER) (test hwno=966) 1.9 mg/dL 1.6-2.6 CBC (HEMOGRAM ONLY)2018-01-03 06:25:00 Test Item Value Reference Range Comments WHITE BLOOD CELL COUNT (BEAKER) (test mttf=790) 3.1 K/ L 3.5-10.5 RED BLOOD CELL COUNT (BEAKER) (test wevz=856) 2.31 M/ L 4.63-6.08 HEMOGLOBIN (BEAKER) (test rull=215) 7.4 GM/DL 13.7-17.5 HEMATOCRIT (BEAKER) (test mpct=161) 21.6 % 40.1-51.0 MEAN CORPUSCULAR VOLUME (BEAKER) (test oxxx=050) 93.5 fL 79.0-92.2 MEAN CORPUSCULAR HEMOGLOBIN (BEAKER) (test 32.0 pg 25.7-32.2 jvvd=984) MEAN CORPUSCULAR HEMOGLOBIN CONC (BEAKER) (test 34.3 GM/DL 32.3-36.5 ksfs=698) RED CELL DISTRIBUTION WIDTH (BEAKER) (test 17.4 % 11.6-14.4 vzdy=659) PLATELET COUNT (BEAKER) (test eawl=350) 50 K/CU MM 150-450 MEAN PLATELET VOLUME (BEAKER) (test jatr=326) 10.5 fL 9.4-12.4 NUCLEATED RED BLOOD CELLS (BEAKER) (test 0 /100 WBC 0-0 csvi=983) PROTHROMBIN [id number] 06:09:00 Test Item Value Reference Range Comments PROTIME (BEAKER) (test yvcj=139) 22.2 seconds 11.7-14.7 INR (BEAKER) (test dsru=046) 2.0 <=5.9 RECOMMENDED COUMADIN/WARFARIN INR THERAPY RANGESSTANDARD DOSE: 2.0 - 3.0 Includes: PROPHYLAXIS forvenous thrombosis, systemic embolization; TREATMENT for venous thrombosis and/or pulmonary embolus.HIGH RISK: Target INR is 2.5-3.5 for patients with mechanical heart valves.[id number] 07:54:00 Test Item Value Reference Range Comments PHOSPHORUS (BEAKER) (test lbwa=149) 3.2 mg/dL 2.3-4.7 [id number] 07:54:00 Test Item Value Reference Range Comments MAGNESIUM (BEAKER) (test vmxw=663) 1.4 mg/dL 1.6-2.6 COMPREHENSIVE METABOLIC [id number] 07:54:00 Test Item Value Reference Range Comments TOTAL PROTEIN (BEAKER) 5.3 gm/dL 6.0-8.3 (test qoev=929) ALBUMIN (BEAKER) (test 3.4 g/dL 3.5-5.0 krdh=8237) ALKALINE PHOSPHATASE 55 U/L 40-150 (BEAKER) (test jcpt=512) BILIRUBIN TOTAL (BEAKER) 3.9 mg/dL 0.2-1.2 (test ljqa=873) SODIUM (BEAKER) (test 131 meq/L 136-145 lcej=274) POTASSIUM (BEAKER) (test 4.3 meq/L 3.5-5.1 yjeb=282) CHLORIDE (BEAKER) (test 101 meq/L 98-107 bkqd=327) CO2 (BEAKER) (test 23 meq/L 22-29 rvys=598) BLOOD UREA NITROGEN 19 mg/dL 7-21 (BEAKER) (test kemt=865) CREATININE (BEAKER) (test 0.97 mg/dL 0.57-1.25 mnlf=537) GLUCOSE RANDOM (BEAKER) 80 mg/dL 70-105 (test qere=590) CALCIUM (BEAKER) (test 9.4 mg/dL 8.4-10.2 pynk=041) AST (SGOT) (BEAKER) (test 17 U/L 5-34 mnbr=290) ALT (SGPT) (BEAKER) (test 8 U/L 6-55 ftsh=967) EGFR (BEAKER) (test 81 mL/min/1.73 sq m ESTIMATED GFR IS NOT ounz=3974) ACCURATE CREATININE CLEARANCE IN PREDICTING GLOMERULAR FILTRATION RATE. ESTIMATED GFR IS NOT APPLICABLE FOR DIALYSIS PATIENTS. Specimen slightly ictericCBC W/PLT COUNT & AUTO [id number] 07:14 :00 Test Item Value Reference Range Comments WHITE BLOOD CELL COUNT (BEAKER) (test wzau=593) 2.9 K/ L 3.5-10.5 RED BLOOD CELL COUNT (BEAKER) (test ubtg=431) 2.55 M/ L 4.63-6.08 HEMOGLOBIN (BEAKER) (test jlfh=135) 8.1 GM/DL 13.7-17.5 HEMATOCRIT (BEAKER) (test axem=849) 23.7 % 40.1-51.0 MEAN CORPUSCULAR VOLUME (BEAKER) (test pwtu=933) 92.9 fL 79.0-92.2 MEAN CORPUSCULAR HEMOGLOBIN (BEAKER) (test 31.8 pg 25.7-32.2 ylgi=444) MEAN CORPUSCULAR HEMOGLOBIN CONC (BEAKER) (test 34.2 GM/DL 32.3-36.5 pwnt=535) RED CELL DISTRIBUTION WIDTH (BEAKER) (test 17.5 % 11.6-14.4 wbgd=407) PLATELET COUNT (BEAKER) (test ieck=680) 50 K/CU MM 150-450 MEAN PLATELET VOLUME (BEAKER) (test lamk=067) 9.5 fL 9.4-12.4 NUCLEATED RED BLOOD CELLS (BEAKER) (test 0 /100 WBC 0-0 ainr=724) NEUTROPHILS RELATIVE PERCENT (BEAKER) (test 57 % orvv=105) LYMPHOCYTES RELATIVE PERCENT (BEAKER) (test 17 % djmi=364) MONOCYTES RELATIVE PERCENT (BEAKER) (test 18 % lmev=118) EOSINOPHILS RELATIVE PERCENT (BEAKER) (test 7 % wfck=283) BASOPHILS RELATIVE PERCENT (BEAKER) (test 0 % ydkc=745) NEUTROPHILS ABSOLUTE COUNT (BEAKER) (test 1.65 K/ L 1.78-5.38 ueco=117) LYMPHOCYTES ABSOLUTE COUNT (BEAKER) (test 0.49 K/ L 1.32-3.57 dzjd=301) MONOCYTES ABSOLUTE COUNT (BEAKER) (test hkwo=542) 0.51 K/ L 0.30-0.82 EOSINOPHILS ABSOLUTE COUNT (BEAKER) (test 0.20 K/ L 0.04-0.54 qtsm=026) BASOPHILS ABSOLUTE COUNT (BEAKER) (test hpam=039) 0.01 K/ L 0.01-0.08 IMMATURE GRANULOCYTES-RELATIVE PERCENT (BEAKER) 1 % 0-1 (test kcca=2469) (MANUAL DIFFERENTIAL)2018-01-02 07:14:00 Test Item Value Reference Range Comments TOTAL COUNTED (BEAKER) (test juhr=6038) CALCIUM, [id number] 07:04:00 Test Item Value Reference Range Comments CALCIUM IONIZED (BEAKER) (test fovr=143) 1.07 mmol/L 1.12-1.27 PH, BLOOD (BEAKER) (test jusk=9931) 7.49 PROTHROMBIN TIME/[id number] 06:42:00 Test Item Value Reference Range Comments PROTIME (BEAKER) (test flgp=013) 24.6 seconds 11.7-14.7 INR (BEAKER) (test mnqt=125) 2.2 <=5.9 RECOMMENDED COUMADIN/WARFARIN INR THERAPY RANGESSTANDARD DOSE: 2.0 - 3.0 Includes: PROPHYLAXIS forvenous thrombosis, systemic embolization; TREATMENT for venous thrombosis and/or pulmonary embolus.HIGH RISK: Target INR is 2.5-3.5 for patients with mechanical heart valves.CYTOMEGALOVIRUS ANTIBODY, [id number] 14:58:00 Test Item Value Reference Range Comments CYTOMEGALOVIRUS IGG ANTIBODY (BEAKER) (test Positive vhkz=112) CYTOMEGALOVIRUS ANTIBODY, [id number] 14:58:00 Test Item Value Reference Range Comments CYTOMEGALOVIRUS IGM ANTIBODY (BEAKER) (test Negative pgpk=151) EBV-VCA ANTIBODY, [id number] 14:58:00 Test Item Value Reference Range Comments MACRELLUS-DAVIS VCA IGG (BEAKER) (test bfam=005) Positive EBV-VCA ANTIBODY, [id number] 14:58:00 Test Item Value Reference Range Comments MARCELLUS-DAVIS VCA IGM (BEAKER) (test drqo=378) Negative BODY FLUID CELL COUNT WITH [id number] 14:27:00 Test Item Value Reference Range Comments APPEARANCE FLUID (BEAKER) (test zjvy=358) Slightly Hazy Clear COLOR FLUID (BEAKER) (test wjlo=914) Yellow Colorless, Straw RBC FLUID (BEAKER) (test wwpp=102) 378 /cu mm <=1 ADJUSTED WBC FLUID (BEAKER) (test hdoi=6035) 84 /cu mm <=5 LINING CELLS (BEAKER) (test hrvy=2707) 17 /cu mm <=1 NEUTROPHILS FLUID (BEAKER) (test irzb=0080) 1 % LYMPHS FLUID (BEAKER) (test jaev=226) 14 % MONO/MACROPHAGE FLUID (BEAKER) (test 85 % bdzv=366) EOSINOPHILS FLUID (BEAKER) (test kxfs=714) 0 % BASO FLUID (BEAKER) (test zjkw=254) 0 % CONTAINER BODY FLUID (BEAKER) (test EDTA Tube nknt=2253) U/S, [id number] 11:17:00Reason for exam:->ascitesFINAL REPORT Ultrasound guided paracentesis, 01/01/2018. Clinical History:Ascites. Sedation: None. Wood Carving Machine Operator: Paul Butler MD Primer Inserting Machine Adjuster: None. Estimated Blood Loss: < 1 cc. [...] was achieved with 1% lidocaine, a 5 [place] one-step catheter was advanced into the peritoneal cavity under ultrasound guidance. After completion of drainage, the catheter was removed. There was no evidence ofcomplication. Patient Disposition: The patient was transferred to the inpatient unit from the ultrasound department after the paracentesis, in good condition. Impression:Successful ultrasound guided paracentesis. S[facility]: [facility] Verified Date/Time: 01/01/2018 11:17:26 Reading Location: [address] Ultrasound Reading Room CBC W/PLT COUNT & AUTO [id number] 08:55:00 Test Item Value Reference Range Comments WHITE BLOOD CELL COUNT (BEAKER) (test lzjj=845) 2.6 K/ L 3.5-10.5 RED BLOOD CELL COUNT (BEAKER) (test lmss=479) 2.17 M/ L 4.63-6.08 HEMOGLOBIN (BEAKER) (test qdya=714) 6.9 GM/DL 13.7-17.5 HEMATOCRIT (BEAKER) (test bzhg=014) 20.6 % 40.1-51.0 MEAN CORPUSCULAR VOLUME (BEAKER) (test cvfe=498) 94.9 fL 79.0-92.2 MEAN CORPUSCULAR HEMOGLOBIN (BEAKER) (test 31.8 pg 25.7-32.2 snhm=723) MEAN CORPUSCULAR HEMOGLOBIN CONC (BEAKER) (test 33.5 GM/DL 32.3-36.5 xsbv=938) RED CELL DISTRIBUTION WIDTH (BEAKER) (test 17.0 % 11.6-14.4 kbcb=622) PLATELET COUNT (BEAKER) (test mccu=234) 43 K/CU MM 150-450 MEAN PLATELET VOLUME (BEAKER) (test kqwj=608) 9.3 fL 9.4-12.4 NUCLEATED RED BLOOD CELLS (BEAKER) (test 0 /100 WBC 0-0 xzwh=752) NEUTROPHILS RELATIVE PERCENT (BEAKER) (test 62 % nkbu=525) LYMPHOCYTES RELATIVE PERCENT (BEAKER) (test 13 % volp=248) MONOCYTES RELATIVE PERCENT (BEAKER) (test 18 % ivmb=811) EOSINOPHILS RELATIVE PERCENT (BEAKER) (test 6 % vnna=416) BASOPHILS RELATIVE PERCENT (BEAKER) (test 0 % rftb=690) NEUTROPHILS ABSOLUTE COUNT (BEAKER) (test 1.58 K/ L 1.78-5.38 eako=333) LYMPHOCYTES ABSOLUTE COUNT (BEAKER) (test 0.33 K/ L 1.32-3.57 uyws=454) MONOCYTES ABSOLUTE COUNT (BEAKER) (test xmsf=030) 0.46 K/ L 0.30-0.82 EOSINOPHILS ABSOLUTE COUNT (BEAKER) (test 0.15 K/ L 0.04-0.54 nody=681) BASOPHILS ABSOLUTE COUNT (BEAKER) (test fhpg=833) 0.01 K/ L 0.01-0.08 IMMATURE GRANULOCYTES-RELATIVE PERCENT (BEAKER) 1 % 0-1 (test ogpk=9632) (MANUAL DIFFERENTIAL)2018-01-01 08:55:00 Test Item Value Reference Range Comments TOTAL COUNTED (BEAKER) (test trkg=3189) CALCIUM, [id number] 07:43:00 Test Item Value Reference Range Comments CALCIUM IONIZED (BEAKER) (test prqk=548) 1.14 mmol/L 1.12-1.27 PH, BLOOD (BEAKER) (test mfnk=5976) 7.52 [id number] 06:11:00 Test Item Value Reference Range Comments PHOSPHORUS (BEAKER) (test zfdq=708) 2.5 mg/dL 2.3-4.7 [id number] 06:11:00 Test Item Value Reference Range Comments MAGNESIUM (BEAKER) (test pkum=945) 1.7 mg/dL 1.6-2.6 COMPREHENSIVE METABOLIC [id number] 06:11:00 Test Item Value Reference Range Comments TOTAL PROTEIN (BEAKER) 5.6 gm/dL 6.0-8.3 (test htyh=702) ALBUMIN (BEAKER) (test 3.6 g/dL 3.5-5.0 ybdr=5081) ALKALINE PHOSPHATASE 68 U/L 40-150 (BEAKER) (test xomr=318) BILIRUBIN TOTAL (BEAKER) 2.7 mg/dL 0.2-1.2 (test nipr=049) SODIUM (BEAKER) (test 132 meq/L 136-145 vujx=766) POTASSIUM (BEAKER) (test 4.9 meq/L 3.5-5.1 qtxn=307) CHLORIDE (BEAKER) (test 102 meq/L 98-107 qlbt=299) CO2 (BEAKER) (test 24 meq/L 22-29 qfxg=684) BLOOD UREA NITROGEN 20 mg/dL 7-21 (BEAKER) (test vmgm=718) CREATININE (BEAKER) (test 1.17 mg/dL 0.57-1.25 fjjb=743) GLUCOSE RANDOM (BEAKER) 92 mg/dL 70-105 (test bght=164) CALCIUM (BEAKER) (test 9.7 mg/dL 8.4-10.2 tjbs=305) AST (SGOT) (BEAKER) (test 16 U/L 5-34 yddp=486) ALT (SGPT) (BEAKER) (test 8 U/L 6-55 lhfq=598) EGFR (BEAKER) (test 65 mL/min/1.73 sq m ESTIMATED GFR IS NOT aoct=0472) ACCURATE CREATININE CLEARANCE IN PREDICTING GLOMERULAR FILTRATION RATE. ESTIMATED GFR IS NOT APPLICABLE FOR DIALYSIS PATIENTS. Specimen slightly ictericPROTHROMBIN TIME/[id number] 06:00:00 Test Item Value Reference Range Comments PROTIME (TUNG) (test kjmw=497) 24.0 seconds 11.7-14.7 INR (BEAKER) (test robh=083) 2.2 <=5.9 RECOMMENDED COUMADIN/WARFARIN INR THERAPY RANGESSTANDARD DOSE: 2.0 - 3.0 Includes: PROPHYLAXIS forvenous thrombosis, systemic embolization; TREATMENT for venous thrombosis and/or pulmonary embolus.HIGH RISK: Target INR is 2.5-3.5 for patients with mechanical heart valves.CT, CHEST, WITHOUT [id number] 19:24:00FINAL REPORT HISTORY: Lung nodule, >=1cm COMPARISON [...] and upper abdominal ascites. Signed: Nick Landeros Verified Date/Time: 12/31/2017 19:24:12 Reading Location: [address] Consult Reading Room 07: 24 PMPERIPHERAL BLOOD SMEAR - HOLD [id number] 19:18:00 Test Item Value Reference Range Comments PERIPHERAL SMEAR SAVE (BEAKER) prepared and saved smear, (test hltp=0568) 12/31/17 RETICULOCYTE [id number] 19:14:00 Test Item Value Reference Range Comments RETICULOCYTE COUNT PCT (BEAKER) (test nptt=690) 3.5 % 0.5-1.8 LACTATE DEHYDROGENASE (LDH)2017-12-31 17:47:00 Test Item Value Reference Range Comments LACTATE DEHYDROGENASE (BEAKER) (test bzib=092) 112 U/L 125-220 BLOOD GAS, [id number] 17:27:00 Test Item Value Reference Range Comments PH ARTERIAL (BEAKER) (test vbll=732) 7.45 7.35-7.45 PCO2 ARTERIAL (BEAKER) (test zofz=142) 36 mmHg 35-45 PO2 ARTERIAL (BEAKER) (test mbsl=996) 76 mmHg 80-90 O2 SATURATION ARTERIAL (BEAKER) (test mhjl=674) 96.1 % 96.0-97.0 HCO3 ARTERIAL (BEAKER) (test ngcx=340) 24 mmol/L 21-29 BASE EXCESS ARTERIAL (BEAKER) (test qcjw=854) 0.2 mmol/L -2.0-3.0 PATIENT TEMPERATURE (BEAKER) (test zgwc=3307) 36.4 C FIO2 (BEAKER) (test fpvq=6522) 21.0 % MYOCARD IMAGING, MULTI, PHARM, [id number] 15:12:00FINAL REPORT PROCEDURE: Rest/Stress MYOCARDIAL PERFUSION SPECT with regadenoson\XA9\ CPT CODE: 22814 INDICATION: Liver transplant evaluation HISTORY: Cardiac risk [...] tracer distribution. 6. No previous [facility] study for comparison. NONINVASIVE RISK STRATIFICATION: The above findings are considered low risk (<1% annual mortality rate) based on the following criterion:- Normal orsmall myocardial perfusion defect at rest or with stress(JACC. 2012;59(9):857-63.) Signed: Quinten Napier Verified Date/Time: 12/31/2017 15:12:03 Reading Location: [facility] 3rd Flr P327B [facility] Reading Room BILIRUBIN, [id number] 14:10:00 Test Item Value Reference Range Comments BILIRUBIN DIRECT (BEAKER) (test wlec=121) 1.6 mg/dL 0.1-0.5 HEMOGLOBIN AND [id number] 13:22:00 Test Item Value Reference Range Comments HEMOGLOBIN (BEAKER) (test vmyh=295) 7.3 GM/DL 13.7-17.5 HEMATOCRIT (BEAKER) (test jmke=597) 21.9 % 40.1-51.0 CBC W/PLT COUNT & AUTO [id number] 11:06:00 Test Item Value Reference Range Comments WHITE BLOOD CELL COUNT (BEAKER) (test pcab=617) 2.2 K/ L 3.5-10.5 RED BLOOD CELL COUNT (BEAKER) (test qumh=387) 2.07 M/ L 4.63-6.08 HEMOGLOBIN (BEAKER) (test hwgo=239) 6.8 GM/DL 13.7-17.5 HEMATOCRIT (BEAKER) (test bntd=275) 19.6 % 40.1-51.0 MEAN CORPUSCULAR VOLUME (BEAKER) (test atgl=041) 94.7 fL 79.0-92.2 MEAN CORPUSCULAR HEMOGLOBIN (BEAKER) (test 32.9 pg 25.7-32.2 kqyn=540) MEAN CORPUSCULAR HEMOGLOBIN CONC (BEAKER) (test 34.7 GM/DL 32.3-36.5 xuqy=123) RED CELL DISTRIBUTION WIDTH (BEAKER) (test 16.9 % 11.6-14.4 bfkq=526) PLATELET COUNT (BEAKER) (test diex=881) 47 K/CU MM 150-450 MEAN PLATELET VOLUME (BEAKER) (test reaa=973) 9.7 fL 9.4-12.4 NUCLEATED RED BLOOD CELLS (BEAKER) (test 0 /100 WBC 0-0 xzvj=996) NEUTROPHILS RELATIVE PERCENT (BEAKER) (test 54 % bunn=696) LYMPHOCYTES RELATIVE PERCENT (BEAKER) (test 17 % mity=962) MONOCYTES RELATIVE PERCENT (BEAKER) (test 21 % ajbj=471) EOSINOPHILS RELATIVE PERCENT (BEAKER) (test 8 % rkan=346) BASOPHILS RELATIVE PERCENT (BEAKER) (test 1 % qjgh=477) NEUTROPHILS ABSOLUTE COUNT (BEAKER) (test 1.17 K/ L 1.78-5.38 cyzh=665) LYMPHOCYTES ABSOLUTE COUNT (BEAKER) (test 0.36 K/ L 1.32-3.57 rfru=939) MONOCYTES ABSOLUTE COUNT (BEAKER) (test bacd=409) 0.45 K/ L 0.30-0.82 EOSINOPHILS ABSOLUTE COUNT (BEAKER) (test 0.17 K/ L 0.04-0.54 oecg=431) BASOPHILS ABSOLUTE COUNT (BEAKER) (test hcji=481) 0.01 K/ L 0.01-0.08 IMMATURE GRANULOCYTES-RELATIVE PERCENT (BEAKER) 1 % 0-1 (test mrey=7555) (MANUAL DIFFERENTIAL)2017-12-31 11:06:00 Test Item Value Reference Range Comments TOTAL COUNTED (BEAKER) (test ybta=7628) [id number] 08:37:00 Test Item Value Reference Range Comments PROTIME (BEAKER) (test uwpo=709) 24.0 seconds 11.7-14.7 INR (BEAKER) (test pvoa=454) 2.2 <=5.9 PARTIAL THROMBOPLASTIN TIME (BEAKER) (test 55.2 seconds 22.5-36.0 cigv=602) RECOMMENDED COUMADIN/WARFARIN INR THERAPY RANGESSTANDARD DOSE: 2.0 - 3.0 Includes: PROPHYLAXIS forvenous thrombosis, systemic embolization; TREATMENT for venous thrombosis and/or pulmonary embolus.HIGH RISK: Target INR is 2.5-3.5 for patients with mechanical heart valves.COMPREHENSIVE METABOLIC [id number] 06:37:00 Test Item Value Reference Range Comments TOTAL PROTEIN (BEAKER) 5.7 gm/dL 6.0-8.3 (test pkcw=714) ALBUMIN (BEAKER) (test 3.7 g/dL 3.5-5.0 kgfg=4562) ALKALINE PHOSPHATASE 70 U/L 40-150 (BEAKER) (test yqjc=840) BILIRUBIN TOTAL (BEAKER) 2.6 mg/dL 0.2-1.2 (test qvaa=146) SODIUM (BEAKER) (test 130 meq/L 136-145 tnot=046) POTASSIUM (BEAKER) (test 5.2 meq/L 3.5-5.1 tniq=963) CHLORIDE (BEAKER) (test 100 meq/L 98-107 phjn=484) CO2 (BEAKER) (test 25 meq/L 22-29 tgoo=486) BLOOD UREA NITROGEN 20 mg/dL 7-21 (BEAKER) (test tatr=932) CREATININE (BEAKER) (test 1.08 mg/dL 0.57-1.25 nfgz=429) GLUCOSE RANDOM (BEAKER) 91 mg/dL 70-105 (test zzxa=878) CALCIUM (BEAKER) (test 9.6 mg/dL 8.4-10.2 zfvs=614) AST (SGOT) (BEAKER) (test 16 U/L 5-34 gmyc=689) ALT (SGPT) (BEAKER) (test 6 U/L 6-55 dgro=362) EGFR (BEAKER) (test 72 mL/min/1.73 sq m ESTIMATED GFR IS NOT nvgb=1745) ACCURATE CREATININE CLEARANCE IN PREDICTING GLOMERULAR FILTRATION RATE. ESTIMATED GFR IS NOT APPLICABLE FOR DIALYSIS PATIENTS. Specimen slightly [id number] 06:01:00 Test Item Value Reference Range Comments RPR SCREEN (BEAKER) (test wcmn=338) Nonreactive Nonreactive CRYPTOCOCCAL [id number] 05:59:00 Test Item Value Reference Range Comments CRYPTOCOCCAL ANTIGEN, SERUM (BEAKER) (test Negative Negative, Interference udmn=1739) RAD, MANDIBLE, MIN 4 [id number] 01:37:00Reason for exam:->liver transplant evalShould this be [...] small scattered sclerotic calvarial foci. Signed: Slick Barcenaseport Verified Date/Time: 12/31/2017 01:37:57 Reading Location: [address] Reading Room Electronically signed by: SLICK BARCENAS M.D. on 04/2018 01:37 AMRAD, CHEST, 2 [id number] 23:32:00Reason for exam:-> liver transplant evalShould this [...] MDReport Verified Date/Time: 12/30/2017 23:32:31 Reading Location: [address] Reading Room HEMOGLOBIN [id number] 22:54:00 Test Item Value Reference Range Comments HEMOGLOBIN A1C (BEAKER) (test krig=400) 4.1 % 4.3-6.1 HEPATITIS B SURFACE [id number] 16:31:00 Test Item Value Reference Range Comments HEPATITIS B SURFACE ANTIBODY (BEAKER) (test < mIU/mL <8.0 yecf=895) HEPATITIS B SURFACE [id number] 16:29:00 Test Item Value Reference Range Comments HEPATITIS B SURFACE ANTIGEN (2) (BEAKER) (test Nonreactive Nonreactive kmaq=1271) HEPATITIS B CORE ANTIBODY, [id number] 16:29:00 Test Item Value Reference Range Comments HEPATITIS B CORE IGM ANTIBODY (BEAKER) (test Nonreactive Nonreactive bpkc=563) HEPATITIS A ANTIBODY, [id number] 16:29:00 Test Item Value Reference Range Comments HEPATITIS A IGM ANTIBODY (BEAKER) (test Nonreactive Nonreactive vfzz=004) HEPATITIS B CORE ANTIBODY, [id number] 16:29:00 Test Item Value Reference Range Comments HEPATITIS B CORE TOTAL ANTIBODY (BEAKER) (test Nonreactive Nonreactive hxzv=891) [id number] 16:26:00 Test Item Value Reference Range Comments T4 TOTAL (BEAKER) (test qswl=917) 3.5 ug/dL 4.9-11.7 [id number] 16:26:00 Test Item Value Reference Range Comments T3 TOTAL (BEAKER) (test amro=258) 42 ng/dL 48-159 [id number] 16:24:00 Test Item Value Reference Range Comments FERRITIN (BEAKER) (test brqh=742) 1460 ng/mL 5-275 VITAMIN D, [id number] 16:24:00 Test Item Value Reference Range Comments VITAMIN D 25-OH (BEAKER) (test ciws=4286) 6.9 ng/mL 6.6-49.9 Effective 08/06/2017: Reference Range ChangeNew: 6.6-49.9 ng/mL Previous: 13.0 -47.8 ng/mLRecommended Vitamin D Target Range: 30.0-40.0 ng/[id number] 16: 24:00 Test Item Value Reference Range Comments THYROID STIMULATING HORMONE (BEAKER) (test 1.55 uIU/mL 0.35-4.94 omog=813) CARCINOEMBRYONIC ANTIGEN (CEA)2017-12-30 16:24:00 Test Item Value Reference Range Comments CARCINOEMBRYONIC ANTIGEN (BEAKER) (test kxep=925) 3.0 ng/mL 0.0-5.0 [id number] 16:23:00 Test Item Value Reference Range Comments PROSTATE SPECIFIC ANTIGEN (BEAKER) (test ooru=464) 0.1 ng/mL 0.0-4.0 HIV-1 ANTIGEN WITH HIV-1/2 [id number] 16:23:00 Test Item Value Reference Range Comments HIV-1 ANTIGEN WITH HIV 1\T\2 ANTIBODY (2) Nonreactive Nonreactive (BEAKER) (test miwi=6834) HEPATITIS C [id number] 16:23:00 Test Item Value Reference Range Comments HEPATITIS C ANTIBODY (BEAKER) (test akvv=286) Nonreactive Nonreactive LIPID [id number] 16:06:00 Test Item Value Reference Range Comments TRIGLYCERIDES (BEAKER) (test uxdv=778) 38 mg/dL CHOLESTEROL (BEAKER) (test opdc=502) 51 mg/dL HDL CHOLESTEROL (BEAKER) (test wvxj=719) 10 mg/dL LDL CHOLESTEROL CALCULATED (BEAKER) (test uhee=485) 33 mg/dL Triglyceride Reference Range: Low Risk [...] Value Reference Range Comments IRON (BEAKER) (test dywl=613) 90 ug/dL 40-160 TOTAL IRON BINDING CAPACITY (BEAKER) (test 85 ug/dL 250-450 uoez=840) IRON % SATURATION (2) (BEAKER) (test lgnx=3418) 106 % 20-55 [id number] 16:04:00 Test Item Value Reference Range Comments TRANSFERRIN (BEAKER) (test hlyw=151) 65 mg/dL 174-382 Specimen slightly ictericURIC [id number] 16:02:00 Test Item Value Reference Range Comments URIC ACID (BEAKER) (test axwx=353) 8.5 mg/dL 2.6-7.2 Specimen slightly [id number] 15:50:00 Test Item Value Reference Range Comments FIBRINOGEN LEVEL (BEAKER) (test nrur=463) 161 mg/dl 225-434 BODY FLUID CULTURE + GRAM [id number] 11:45:00 Test Item Value Reference Range Comments CULTURE (BEAKER) (test wkqr=9190) No growth GRAM STAIN RESULT (BEAKER) (test No WBCs knde=9484) GRAM STAIN RESULT (BEAKER) (test No organisms seen oifa=35479) CBC W/PLT COUNT & AUTO [id number] 08:05:00 Test Item Value Reference Range Comments WHITE BLOOD CELL COUNT (BEAKER) (test qbyx=266) 2.0 K/ L 3.5-10.5 RED BLOOD CELL COUNT (BEAKER) (test phwe=203) 2.20 M/ L 4.63-6.08 HEMOGLOBIN (BEAKER) (test jatb=433) 7.1 GM/DL 13.7-17.5 HEMATOCRIT (BEAKER) (test edql=961) 20.8 % 40.1-51.0 MEAN CORPUSCULAR VOLUME (BEAKER) (test jazp=701) 94.5 fL 79.0-92.2 MEAN CORPUSCULAR HEMOGLOBIN (BEAKER) (test 32.3 pg 25.7-32.2 jhxu=748) MEAN CORPUSCULAR HEMOGLOBIN CONC (BEAKER) (test 34.1 GM/DL 32.3-36.5 crmp=513) RED CELL DISTRIBUTION WIDTH (BEAKER) (test 17.0 % 11.6-14.4 dycx=918) PLATELET COUNT (BEAKER) (test vmwx=295) 52 K/CU MM 150-450 MEAN PLATELET VOLUME (BEAKER) (test zcbk=012) 10.7 fL 9.4-12.4 NUCLEATED RED BLOOD CELLS (BEAKER) (test 0 /100 WBC 0-0 lwvw=209) NEUTROPHILS RELATIVE PERCENT (BEAKER) (test 55 % ghmi=018) LYMPHOCYTES RELATIVE PERCENT (BEAKER) (test 16 % wmvc=540) MONOCYTES RELATIVE PERCENT (BEAKER) (test 20 % bbdb=479) EOSINOPHILS RELATIVE PERCENT (BEAKER) (test 8 % rblu=046) BASOPHILS RELATIVE PERCENT (BEAKER) (test 1 % qwdu=937) NEUTROPHILS ABSOLUTE COUNT (BEAKER) (test 1.10 K/ L 1.78-5.38 pmwu=941) LYMPHOCYTES ABSOLUTE COUNT (BEAKER) (test 0.32 K/ L 1.32-3.57 ocyl=689) MONOCYTES ABSOLUTE COUNT (BEAKER) (test mewg=208) 0.40 K/ L 0.30-0.82 EOSINOPHILS ABSOLUTE COUNT (BEAKER) (test 0.16 K/ L 0.04-0.54 plvr=146) BASOPHILS ABSOLUTE COUNT (BEAKER) (test wghr=177) 0.01 K/ L 0.01-0.08 IMMATURE GRANULOCYTES-RELATIVE PERCENT (BEAKER) 1 % 0-1 (test zguv=2881) (MANUAL DIFFERENTIAL)2017-12-30 08:05:00 Test Item Value Reference Range Comments TOTAL COUNTED (BEAKER) (test qdxg=5071) URINALYSIS W/ [id number] 06:46:00 Test Item Value Reference Range Comments COLOR (BEAKER) (test znri=524) Yellow CLARITY (BEAKER) (test utph=996) Clear SPECIFIC GRAVITY UA (BEAKER) (test fbmf=945) 1.008 1.001-1.035 PH UA (BEAKER) (test nohy=009) 6.0 5.0-8.0 PROTEIN UA (BEAKER) (test mnye=564) Negative Negative GLUCOSE UA (BEAKER) (test oqax=678) Negative Negative KETONES UA (BEAKER) (test mpgk=843) Negative Negative BILIRUBIN UA (BEAKER) (test qhri=670) Negative Negative BLOOD UA (BEAKER) (test txhw=610) Negative Negative NITRITE UA (BEAKER) (test fnru=418) Negative Negative LEUKOCYTE ESTERASE UA (BEAKER) (test thby=125) Negative Negative UROBILINOGEN UA (BEAKER) (test vcpr=508) 0.2 mg/dL 0.2-1.0 RBC UA (BEAKER) (test vqlr=489) 0 /HPF WBC UA (BEAKER) (test baqb=526) 0 /HPF HYALINE CASTS (BEAKER) (test tbvw=922) 5 /LPF SOURCE(BEAKER) (test mdno=1136) Urine, Voided SODIUM, RANDOM [id number] 06:35:00 Test Item Value Reference Range Comments SODIUM URINE (BEAKER) (test himu=863) < meq/L Reference Range: No NormalsPROTEIN, RANDOM [id number] 06:35:00 Test Item Value Reference Range Comments PROTEIN, URINE (BEAKER) (test inxn=2142) < mg/dL 0-14 [id number] 06:21:00 Test Item Value Reference Range Comments MAGNESIUM (BEAKER) (test 1.8 mg/dL 1.6-2.6 Specimen slightly hemolyzed ldqt=739) [id number] 06:21:00 Test Item Value Reference Range Comments PHOSPHORUS (BEAKER) (test 2.9 mg/dL 2.3-4.7 Specimen slightly hemolyzed qpna=746) COMPREHENSIVE METABOLIC [id number] 06:21:00 Test Item Value Reference Range Comments TOTAL PROTEIN (BEAKER) 5.6 gm/dL 6.0-8.3 Specimen slightly (test zkqh=647) hemolyzed ALBUMIN (BEAKER) (test 3.5 g/dL 3.5-5.0 Specimen slightly ojsm=8866) hemolyzed ALKALINE PHOSPHATASE 75 U/L 40-150 (BEAKER) (test gfga=304) BILIRUBIN TOTAL (BEAKER) 3.0 mg/dL 0.2-1.2 Specimen slightly (test gsxj=428) hemolyzed SODIUM (BEAKER) (test 127 meq/L 136-145 rgmx=035) POTASSIUM (BEAKER) (test 5.2 meq/L 3.5-5.1 Specimen slightly weva=988) hemolyzed CHLORIDE (BEAKER) (test 97 meq/L 98-107 moeq=286) CO2 (BEAKER) (test 24 meq/L 22-29 lgkq=235) BLOOD UREA NITROGEN 22 mg/dL 7-21 (BEAKER) (test wpww=912) CREATININE (BEAKER) (test 1.11 mg/dL 0.57-1.25 Specimen slightly ucsd=208) hemolyzed GLUCOSE RANDOM (BEAKER) 94 mg/dL 70-105 (test nwaj=028) CALCIUM (BEAKER) (test 9.4 mg/dL 8.4-10.2 qfty=362) AST (SGOT) (BEAKER) (test 22 U/L 5-34 Specimen slightly pzmp=914) hemolyzed ALT (SGPT) (BEAKER) (test 7 U/L 6-55 Specimen slightly wiuf=601) hemolyzed EGFR (BEAKER) (test 70 mL/min/1.73 sq m ESTIMATED GFR IS NOT ohcc=7947) ACCURATE CREATININE CLEARANCE IN PREDICTING GLOMERULAR FILTRATION RATE. ESTIMATED GFR IS NOT APPLICABLE FOR DIALYSIS PATIENTS. Specimen slightly ictericCREATININE, RANDOM [id number] 06:19:00 Test Item Value Reference Range Comments CREATININE URINE (BEAKER) (test bezv=146) 60.6 mg/dL Reference Range: No [id number] 13:43:00 Test Item Value Reference Range Comments ETHANOL (BEAKER) (test zraf=025) < mg/dL <=10 COMPREHENSIVE METABOLIC [id number] 08:23:00 Test Item Value Reference Range Comments TOTAL PROTEIN (BEAKER) 5.5 gm/dL 6.0-8.3 (test ngmc=538) ALBUMIN (BEAKER) (test 3.3 g/dL 3.5-5.0 aqyw=9583) ALKALINE PHOSPHATASE 85 U/L 40-150 (BEAKER) (test pnse=825) BILIRUBIN TOTAL (BEAKER) 3.8 mg/dL 0.2-1.2 (test qcwr=279) SODIUM (BEAKER) (test 125 meq/L 136-145 ctkn=438) POTASSIUM (BEAKER) (test 4.7 meq/L 3.5-5.1 jejf=382) CHLORIDE (BEAKER) (test 96 meq/L 98-107 zidl=698) CO2 (BEAKER) (test 21 meq/L 22-29 tppy=383) BLOOD UREA NITROGEN 22 mg/dL 7-21 (BEAKER) (test itcp=531) CREATININE (BEAKER) (test 1.26 mg/dL 0.57-1.25 qyba=054) GLUCOSE RANDOM (BEAKER) 95 mg/dL 70-105 (test otbu=664) CALCIUM (BEAKER) (test 9.1 mg/dL 8.4-10.2 rvjc=346) AST (SGOT) (BEAKER) (test 20 U/L 5-34 fjks=549) ALT (SGPT) (BEAKER) (test 8 U/L 6-55 wtbg=722) EGFR (BEAKER) (test 60 mL/min/1.73 sq m ESTIMATED GFR IS NOT gzjq=4686) ACCURATE CREATININE CLEARANCE IN PREDICTING GLOMERULAR FILTRATION RATE. ESTIMATED GFR IS NOT APPLICABLE FOR DIALYSIS PATIENTS. Specimen slightly ictericCBC W/PLT COUNT & AUTO [id number] 07:17 :00 Test Item Value Reference Range Comments WHITE BLOOD CELL COUNT (BEAKER) (test smql=125) 2.8 K/ L 3.5-10.5 RED BLOOD CELL COUNT (BEAKER) (test qtts=719) 2.28 M/ L 4.63-6.08 HEMOGLOBIN (BEAKER) (test owvk=066) 7.3 GM/DL 13.7-17.5 HEMATOCRIT (BEAKER) (test sdnr=766) 21.4 % 40.1-51.0 MEAN CORPUSCULAR VOLUME (BEAKER) (test njvp=200) 93.9 fL 79.0-92.2 MEAN CORPUSCULAR HEMOGLOBIN (BEAKER) (test 32.0 pg 25.7-32.2 iihp=569) MEAN CORPUSCULAR HEMOGLOBIN CONC (BEAKER) (test 34.1 GM/DL 32.3-36.5 xdqz=312) RED CELL DISTRIBUTION WIDTH (BEAKER) (test 16.9 % 11.6-14.4 dlfp=828) PLATELET COUNT (BEAKER) (test sdpd=789) 52 K/CU MM 150-450 MEAN PLATELET VOLUME (BEAKER) (test pcsb=156) 9.8 fL 9.4-12.4 NUCLEATED RED BLOOD CELLS (BEAKER) (test 0 /100 WBC 0-0 jzut=646) NEUTROPHILS RELATIVE PERCENT (BEAKER) (test 61 % tkct=880) LYMPHOCYTES RELATIVE PERCENT (BEAKER) (test 14 % nuhu=152) MONOCYTES RELATIVE PERCENT (BEAKER) (test 18 % nmzw=500) EOSINOPHILS RELATIVE PERCENT (BEAKER) (test 7 % tlte=623) BASOPHILS RELATIVE PERCENT (BEAKER) (test 0 % kdra=610) NEUTROPHILS ABSOLUTE COUNT (BEAKER) (test 1.69 K/ L 1.78-5.38 hyuu=500) LYMPHOCYTES ABSOLUTE COUNT (BEAKER) (test 0.38 K/ L 1.32-3.57 cxws=012) MONOCYTES ABSOLUTE COUNT (BEAKER) (test rjzq=868) 0.51 K/ L 0.30-0.82 EOSINOPHILS ABSOLUTE COUNT (BEAKER) (test 0.18 K/ L 0.04-0.54 ybrd=648) BASOPHILS ABSOLUTE COUNT (BEAKER) (test lwaf=938) 0.01 K/ L 0.01-0.08 IMMATURE GRANULOCYTES-RELATIVE PERCENT (BEAKER) 1 % 0-1 (test qpfs=8500) CT, [id number] 22:20:00FINAL REPORT EXAM: CT of the abdomen [...] MDReport Verified Date/Time: 12/28/2017 22:20:52 Reading Location: [address] Transitional Reading Room CBC W/PLT COUNT & AUTO [id number] 18:06:00 Test Item Value Reference Range Comments WHITE BLOOD CELL COUNT (BEAKER) (test rfza=278) 2.9 K/ L 3.5-10.5 RED BLOOD CELL COUNT (BEAKER) (test vzwx=814) 2.03 M/ L 4.63-6.08 HEMOGLOBIN (BEAKER) (test qhrl=277) 6.5 GM/DL 13.7-17.5 HEMATOCRIT (BEAKER) (test inbq=451) 19.2 % 40.1-51.0 MEAN CORPUSCULAR VOLUME (BEAKER) (test jctj=741) 94.6 fL 79.0-92.2 MEAN CORPUSCULAR HEMOGLOBIN (BEAKER) (test 32.0 pg 25.7-32.2 bdcr=941) MEAN CORPUSCULAR HEMOGLOBIN CONC (BEAKER) (test 33.9 GM/DL 32.3-36.5 xovr=959) RED CELL DISTRIBUTION WIDTH (BEAKER) (test 17.6 % 11.6-14.4 wzou=113) PLATELET COUNT (BEAKER) (test mshe=068) 46 K/CU MM 150-450 MEAN PLATELET VOLUME (BEAKER) (test duax=926) 9.3 fL 9.4-12.4 NUCLEATED RED BLOOD CELLS (BEAKER) (test 0 /100 WBC 0-0 vyin=682) NEUTROPHILS RELATIVE PERCENT (BEAKER) (test 66 % shlh=113) LYMPHOCYTES RELATIVE PERCENT (BEAKER) (test 12 % fmcv=112) MONOCYTES RELATIVE PERCENT (BEAKER) (test 15 % qoki=357) EOSINOPHILS RELATIVE PERCENT (BEAKER) (test 6 % ltcw=271) BASOPHILS RELATIVE PERCENT (BEAKER) (test 0 % upvf=527) NEUTROPHILS ABSOLUTE COUNT (BEAKER) (test 1.92 K/ L 1.78-5.38 lnzp=363) LYMPHOCYTES ABSOLUTE COUNT (BEAKER) (test 0.36 K/ L 1.32-3.57 eqmz=132) MONOCYTES ABSOLUTE COUNT (BEAKER) (test shmj=644) 0.44 K/ L 0.30-0.82 EOSINOPHILS ABSOLUTE COUNT (BEAKER) (test 0.16 K/ L 0.04-0.54 jpsm=185) BASOPHILS ABSOLUTE COUNT (BEAKER) (test mmbs=829) 0.01 K/ L 0.01-0.08 IMMATURE GRANULOCYTES-RELATIVE PERCENT (BEAKER) 1 % 0-1 (test eonr=7935) CBC W/PLT COUNT & AUTO [id number] 12:30:00 Test Item Value Reference Range Comments WHITE BLOOD CELL COUNT (BEAKER) (test ebct=798) 3.1 K/ L 3.5-10.5 RED BLOOD CELL COUNT (BEAKER) (test nepg=284) 2.09 M/ L 4.63-6.08 HEMOGLOBIN (BEAKER) (test vmha=699) 6.8 GM/DL 13.7-17.5 HEMATOCRIT (BEAKER) (test ccll=544) 19.9 % 40.1-51.0 MEAN CORPUSCULAR VOLUME (BEAKER) (test cxyn=492) 95.2 fL 79.0-92.2 MEAN CORPUSCULAR HEMOGLOBIN (BEAKER) (test 32.5 pg 25.7-32.2 gvsz=776) MEAN CORPUSCULAR HEMOGLOBIN CONC (BEAKER) (test 34.2 GM/DL 32.3-36.5 wxcl=219) RED CELL DISTRIBUTION WIDTH (BEAKER) (test 17.5 % 11.6-14.4 mdhc=993) PLATELET COUNT (BEAKER) (test rggl=664) 65 K/CU MM 150-450 MEAN PLATELET VOLUME (BEAKER) (test tkao=153) 10.6 fL 9.4-12.4 NUCLEATED RED BLOOD CELLS (BEAKER) (test 0 /100 WBC 0-0 amlt=448) NEUTROPHILS RELATIVE PERCENT (BEAKER) (test 60 % gxwj=345) LYMPHOCYTES RELATIVE PERCENT (BEAKER) (test 14 % mtjk=442) MONOCYTES RELATIVE PERCENT (BEAKER) (test 17 % pvnt=782) EOSINOPHILS RELATIVE PERCENT (BEAKER) (test 8 % mmgj=955) BASOPHILS RELATIVE PERCENT (BEAKER) (test 0 % qecj=459) NEUTROPHILS ABSOLUTE COUNT (BEAKER) (test 1.85 K/ L 1.78-5.38 zxva=804) LYMPHOCYTES ABSOLUTE COUNT (BEAKER) (test 0.42 K/ L 1.32-3.57 dvnx=102) MONOCYTES ABSOLUTE COUNT (BEAKER) (test mcrg=714) 0.52 K/ L 0.30-0.82 EOSINOPHILS ABSOLUTE COUNT (BEAKER) (test 0.26 K/ L 0.04-0.54 bthj=420) BASOPHILS ABSOLUTE COUNT (BEAKER) (test dcpq=498) 0.01 K/ L 0.01-0.08 IMMATURE GRANULOCYTES-RELATIVE PERCENT (BEAKER) 1 % 0-1 (test tgov=0370) U/S, [id number] 06:59:00Limit fluid removal to no more than 5 litersReason for exam:->ascites, concern for sbpShould thisbe performed at the bedside?->NoFINAL REPORT Paracentesis dated 2017 Procedure: Ultrasound-guided paracentesis. Preprocedure diagnosis: Ascites Postprocedure diagnosis: Ascites Conscious sedation: None. Radiologist: Lena Lynn M.D. Primer Inserting Machine Adjuster: None Anesthesia: 1% Xylocaine mixed with sodium bicarbonate local anesthesia. Technique: After obtaining informed consent, ultrasound-guided paracentesis was performed under usual sterile technique. Using a 5 lebanese drainage catheter, puncture was made in the right lower quadrant abdomen. Approximately 5000 cc of serous fluid was removed. Patient tolerated the procedure well without complication. Complication: None Graft/ Implant: None Estimated Blood Loss: NoneImpression: Ultrasound-guided paracentesis. Signed: Lena Lynn MDReport Verified Date/Time: 12/28/2017 06:59 :16 Reading Location: [address] Body Reading Room ALPHA FETOPROTEIN (AFP), TUMOR [id number] 06:22:00 Test Item Value Reference Range Comments ALPHA-FETOPROTEIN (BEAKER) (test uvkc=5900) 4.1 ng/mL <10.0 COMPREHENSIVE METABOLIC [id number] 06:00:00 Test Item Value Reference Range Comments TOTAL PROTEIN (BEAKER) 5.3 gm/dL 6.0-8.3 (test vhti=758) ALBUMIN (BEAKER) (test 2.7 g/dL 3.5-5.0 tzow=1506) ALKALINE PHOSPHATASE 94 U/L 40-150 (BEAKER) (test lgiq=660) BILIRUBIN TOTAL (BEAKER) 3.7 mg/dL 0.2-1.2 (test swdz=135) SODIUM (BEAKER) (test 124 meq/L 136-145 iggt=950) POTASSIUM (BEAKER) (test 4.6 meq/L 3.5-5.1 sdou=338) CHLORIDE (BEAKER) (test 96 meq/L 98-107 vsft=628) CO2 (BEAKER) (test 22 meq/L 22-29 ncps=466) BLOOD UREA NITROGEN 22 mg/dL 7-21 (BEAKER) (test plbk=347) CREATININE (BEAKER) (test 1.40 mg/dL 0.57-1.25 qufv=795) GLUCOSE RANDOM (BEAKER) 89 mg/dL 70-105 (test yljn=643) CALCIUM (BEAKER) (test 8.8 mg/dL 8.4-10.2 cadu=150) AST (SGOT) (BEAKER) (test 25 U/L 5-34 nqxb=837) ALT (SGPT) (BEAKER) (test 10 U/L 6-55 hmxy=541) EGFR (BEAKER) (test 53 mL/min/1.73 sq m ESTIMATED GFR IS NOT oona=4071) ACCURATE CREATININE CLEARANCE IN PREDICTING GLOMERULAR FILTRATION RATE. ESTIMATED GFR IS NOT APPLICABLE FOR DIALYSIS PATIENTS. Specimen slightly ictericCBC W/PLT COUNT & AUTO [id number] 05:50 :00 Test Item Value Reference Range Comments WHITE BLOOD CELL COUNT (BEAKER) (test vjxl=261) 3.1 K/ L 3.5-10.5 RED BLOOD CELL COUNT (BEAKER) (test pjer=145) 2.00 M/ L 4.63-6.08 HEMOGLOBIN (BEAKER) (test blat=907) 6.4 GM/DL 13.7-17.5 HEMATOCRIT (BEAKER) (test gbpl=480) 18.9 % 40.1-51.0 MEAN CORPUSCULAR VOLUME (BEAKER) (test epyc=775) 94.5 fL 79.0-92.2 MEAN CORPUSCULAR HEMOGLOBIN (BEAKER) (test 32.0 pg 25.7-32.2 tkns=556) MEAN CORPUSCULAR HEMOGLOBIN CONC (BEAKER) (test 33.9 GM/DL 32.3-36.5 ysmp=865) RED CELL DISTRIBUTION WIDTH (BEAKER) (test 17.9 % 11.6-14.4 gixn=842) PLATELET COUNT (BEAKER) (test shbn=929) 59 K/CU MM 150-450 MEAN PLATELET VOLUME (BEAKER) (test iyip=775) 10.4 fL 9.4-12.4 NUCLEATED RED BLOOD CELLS (BEAKER) (test 0 /100 WBC 0-0 iijx=858) NEUTROPHILS RELATIVE PERCENT (BEAKER) (test 63 % elxd=030) LYMPHOCYTES RELATIVE PERCENT (BEAKER) (test 14 % tlhn=405) MONOCYTES RELATIVE PERCENT (BEAKER) (test 15 % nsbv=909) EOSINOPHILS RELATIVE PERCENT (BEAKER) (test 7 % yjux=787) BASOPHILS RELATIVE PERCENT (BEAKER) (test 0 % kies=706) NEUTROPHILS ABSOLUTE COUNT (BEAKER) (test 1.94 K/ L 1.78-5.38 zgpi=624) LYMPHOCYTES ABSOLUTE COUNT (BEAKER) (test 0.44 K/ L 1.32-3.57 yzbm=200) MONOCYTES ABSOLUTE COUNT (BEAKER) (test zmgd=511) 0.47 K/ L 0.30-0.82 EOSINOPHILS ABSOLUTE COUNT (BEAKER) (test 0.21 K/ L 0.04-0.54 alkw=515) BASOPHILS ABSOLUTE COUNT (BEAKER) (test rwmn=337) 0.01 K/ L 0.01-0.08 IMMATURE GRANULOCYTES-RELATIVE PERCENT (BEAKER) 1 % 0-1 (test obig=6593) BODY FLUID CELL COUNT WITH [id number] 20:39:00 Test Item Value Reference Range Comments APPEARANCE FLUID (BEAKER) (test usmj=881) Slightly Hazy Clear COLOR FLUID (BEAKER) (test jivd=930) Yellow Colorless, Straw RBC FLUID (BEAKER) (test fitd=158) 90 /cu mm <=1 ADJUSTED WBC FLUID (BEAKER) (test spgk=0336) 47 /cu mm <=5 LINING CELLS (BEAKER) (test cjjf=4152) 3 /cu mm <=1 NEUTROPHILS FLUID (BEAKER) (test ofwh=5248) 2 % LYMPHS FLUID (BEAKER) (test hsif=991) 19 % MONO/MACROPHAGE FLUID (BEAKER) (test 79 % brwn=449) EOSINOPHILS FLUID (BEAKER) (test wwpx=180) 0 % BASO FLUID (BEAKER) (test alow=831) 0 % CONTAINER BODY FLUID (BEAKER) (test EDTA Tube kreo=5338) ALBUMIN, BODY [id number] 20:14:00 Test Item Value Reference Range Comments ALBUMIN FLUID (BEAKER) (test pkmh=441) 0.4 gm/dL Reference Range: No Normals Assay performance has not been validated for this type of specimen.BASIC METABOLIC [id number] 10:31:00 Test Item Value Reference Range Comments SODIUM (BEAKER) (test 125 meq/L 136-145 kykb=977) POTASSIUM (BEAKER) (test 4.5 meq/L 3.5-5.1 weqx=018) CHLORIDE (BEAKER) (test 98 meq/L 98-107 anuf=712) CO2 (BEAKER) (test 20 meq/L 22-29 pysx=086) BLOOD UREA NITROGEN 22 mg/dL 7-21 (BEAKER) (test azeu=042) CREATININE (BEAKER) (test 1.45 mg/dL 0.57-1.25 ywwe=442) GLUCOSE RANDOM (BEAKER) 87 mg/dL 70-105 (test rccn=661) CALCIUM (BEAKER) (test 8.6 mg/dL 8.4-10.2 vvod=888) EGFR (BEAKER) (test 51 mL/min/1.73 sq m ESTIMATED GFR IS NOT tmqj=1606) ACCURATE CREATININE CLEARANCE IN PREDICTING GLOMERULAR FILTRATION RATE. ESTIMATED GFR IS NOT APPLICABLE FOR DIALYSIS PATIENTS. Specimen slightly ictericHEPATIC FUNCTION [id number] 10:31:00 Test Item Value Reference Range Comments TOTAL PROTEIN (BEAKER) (test jqfz=021) 5.8 gm/dL 6.0-8.3 ALBUMIN (BEAKER) (test voav=8200) 2.4 g/dL 3.5-5.0 BILIRUBIN TOTAL (BEAKER) (test otej=631) 4.1 mg/dL 0.2-1.2 BILIRUBIN DIRECT (BEAKER) (test kzct=160) 3.1 mg/dL 0.1-0.5 ALKALINE PHOSPHATASE (BEAKER) (test mgtn=852) 126 U/L 40-150 AST (SGOT) (BEAKER) (test nrvi=889) 28 U/L 5-34 ALT (SGPT) (BEAKER) (test tkma=661) 13 U/L 6-55 Specimen slightly ictericCBC W/PLT COUNT & AUTO [id number] 10:09 :00 Test Item Value Reference Range Comments WHITE BLOOD CELL COUNT (BEAKER) (test fyov=783) 5.5 K/ L 3.5-10.5 RED BLOOD CELL COUNT (BEAKER) (test fkje=358) 2.56 M/ L 4.63-6.08 HEMOGLOBIN (BEAKER) (test ylpm=901) 8.1 GM/DL 13.7-17.5 HEMATOCRIT (BEAKER) (test xulf=632) 24.2 % 40.1-51.0 MEAN CORPUSCULAR VOLUME (BEAKER) (test qttj=408) 94.5 fL 79.0-92.2 MEAN CORPUSCULAR HEMOGLOBIN (BEAKER) (test 31.6 pg 25.7-32.2 ixvh=819) MEAN CORPUSCULAR HEMOGLOBIN CONC (BEAKER) (test 33.5 GM/DL 32.3-36.5 yluh=660) RED CELL DISTRIBUTION WIDTH (BEAKER) (test 18.6 % 11.6-14.4 blos=033) PLATELET COUNT (BEAKER) (test tikm=057) 86 K/CU MM 150-450 MEAN PLATELET VOLUME (BEAKER) (test dsxt=074) 9.7 fL 9.4-12.4 NUCLEATED RED BLOOD CELLS (BEAKER) (test 0 /100 WBC 0-0 ckjb=919) NEUTROPHILS RELATIVE PERCENT (BEAKER) (test 65 % ldvo=309) LYMPHOCYTES RELATIVE PERCENT (BEAKER) (test 13 % dzzw=964) MONOCYTES RELATIVE PERCENT (BEAKER) (test 14 % qvlk=110) EOSINOPHILS RELATIVE PERCENT (BEAKER) (test 6 % rgkb=499) BASOPHILS RELATIVE PERCENT (BEAKER) (test 0 % kijz=826) NEUTROPHILS ABSOLUTE COUNT (BEAKER) (test 3.59 K/ L 1.78-5.38 zobr=485) LYMPHOCYTES ABSOLUTE COUNT (BEAKER) (test 0.73 K/ L 1.32-3.57 hnye=748) MONOCYTES ABSOLUTE COUNT (BEAKER) (test yjxn=462) 0.76 K/ L 0.30-0.82 EOSINOPHILS ABSOLUTE COUNT (BEAKER) (test 0.33 K/ L 0.04-0.54 qtjd=944) BASOPHILS ABSOLUTE COUNT (BEAKER) (test sdkf=128) 0.02 K/ L 0.01-0.08 IMMATURE GRANULOCYTES-RELATIVE PERCENT (BEAKER) 1 % 0-1 (test knuo=0606) PROTHROMBIN TIME/[id number] 07:51:00 Test Item Value Reference Range Comments PROTIME (BEAKER) (test aavz=625) 23.8 seconds 11.7-14.7 INR (BEAKER) (test nrzp=830) 2.1 <=5.9 RECOMMENDED COUMADIN/WARFARIN INR THERAPY RANGESSTANDARD DOSE: 2.0 - 3.0 Includes: PROPHYLAXIS forvenous thrombosis, systemic embolization; TREATMENT for venous thrombosis and/or pulmonary embolus.HIGH RISK: Target INR is 2.5-3.5 for patients with mechanical heart valves.BLOOD [id number] 05:02:00 Test Item Value Reference Range Comments CULTURE (BEAKER) (test gfvj=0306) No growth in 5 days BLOOD [id number] 05:02:00 Test Item Value Reference Range Comments CULTURE (BEAKER) (test yken=9350) No growth in 5 days BODY FLUID CULTURE + GRAM [id number] 09:05:00 Test Item Value Reference Range Comments CULTURE (BEAKER) (test ryfc=6460) No growth GRAM STAIN RESULT (BEAKER) (test No White blood cells seen osyn=4872) GRAM STAIN RESULT (BEAKER) (test No organisms seen etkl=06250) RAPID DRUG SCREEN, [id number] 23:13:00 Test Item Value Reference Range Comments BARBITURATE URINE (BEAKER) (test uscn=578) Negative Negative BENZODIAZEPINE SCREEN URINE (BEAKER) (test Negative Negative ywfm=540) COCAINE (METAB.) SCREEN (BEAKER) (test antm=5160) Negative Negative METHADONE SCREEN (BEAKER) (test eioq=4402) Negative Negative OPIATE SCREEN URINE (BEAKER) (test wdno=661) Negative Negative CANNABINOID SCREEN URINE (BEAKER) (test adnh=772) Negative Negative AMPH/METHAMPH SCREEN (BEAKER) (test uiyz=8005) Negative Negative PHENCYCLIDINE SCREEN URINE (BEAKER) (test tfqo=670) Negative Negative OXYCODONE SCREEN URINE (BEAKER) (test hpkq=4298) Negative Negative DRUG CUTOFF CONC.Cocaine 300 ng/mL Cannabinoid 50 ng/mL Benzodiazepine 200 ng/mLBarbiturate 200 ng/ mLPhencyclidine 25 ng/mLOpiate 300 ng/mLMethadone 300 ng/mLAmphetamine/ 1000 ng/mL MethamphetamineOxycodone 300 ng/mLThis assay provides an unconfirmed qualitative test result for the clinical management of patients in emergency situations. Chain of custody not maintained. Some vwpe-xet-fsfjcwf medications, as well as adulterants, may cause inaccurate results. Clinical correlation should be applied. A more comprehensive drug screen or confirmation of a detected drug may be performed upon request.MR, ABDOMEN, [id number] 13:52:00FINAL REPORT MRI of the abdomen with [...] MDReport Verified Date/Time: 09/05/2017 13:52:35 Reading Location: [address] BodyReading Room CBC W/PLT COUNT & AUTO [id number] 05:46:00 Test Item Value Reference Range Comments WHITE BLOOD CELL COUNT (BEAKER) (test qyuz=127) 4.7 K/ L 3.5-10.5 RED BLOOD CELL COUNT (BEAKER) (test fohc=736) 2.49 M/ L 4.63-6.08 HEMOGLOBIN (BEAKER) (test gmbg=867) 7.9 GM/DL 13.7-17.5 HEMATOCRIT (BEAKER) (test hxvj=754) 22.6 % 40.1-51.0 MEAN CORPUSCULAR VOLUME (BEAKER) (test pvvh=953) 90.8 fL 79.0-92.2 MEAN CORPUSCULAR HEMOGLOBIN (BEAKER) (test 31.7 pg 25.7-32.2 wiem=492) MEAN CORPUSCULAR HEMOGLOBIN CONC (BEAKER) (test 35.0 GM/DL 32.3-36.5 yjzk=054) RED CELL DISTRIBUTION WIDTH (BEAKER) (test 18.8 % 11.6-14.4 mtou=971) PLATELET COUNT (BEAKER) (test sjjt=796) 60 K/CU MM 150-450 MEAN PLATELET VOLUME (BEAKER) (test lbly=209) 9.2 fL 9.4-12.4 NUCLEATED RED BLOOD CELLS (BEAKER) (test 0 /100 WBC 0-0 rmup=686) NEUTROPHILS RELATIVE PERCENT (BEAKER) (test 65 % rdvb=222) LYMPHOCYTES RELATIVE PERCENT (BEAKER) (test 13 % lktj=765) MONOCYTES RELATIVE PERCENT (BEAKER) (test 15 % njke=041) EOSINOPHILS RELATIVE PERCENT (BEAKER) (test 6 % dpxp=812) BASOPHILS RELATIVE PERCENT (BEAKER) (test 0 % idfe=449) NEUTROPHILS ABSOLUTE COUNT (BEAKER) (test 3.05 K/ L 1.78-5.38 juxh=072) LYMPHOCYTES ABSOLUTE COUNT (BEAKER) (test 0.62 K/ L 1.32-3.57 lejv=338) MONOCYTES ABSOLUTE COUNT (BEAKER) (test mknk=428) 0.68 K/ L 0.30-0.82 EOSINOPHILS ABSOLUTE COUNT (BEAKER) (test 0.28 K/ L 0.04-0.54 eaok=583) BASOPHILS ABSOLUTE COUNT (BEAKER) (test vlms=558) 0.02 K/ L 0.01-0.08 IMMATURE GRANULOCYTES-RELATIVE PERCENT (BEAKER) 1 % 0-1 (test yajp=5538) BASIC METABOLIC [id number] 05:44:00 Test Item Value Reference Range Comments SODIUM (BEAKER) (test 127 meq/L 136-145 hkdr=553) POTASSIUM (BEAKER) (test 4.5 meq/L 3.5-5.1 kcni=589) CHLORIDE (BEAKER) (test 101 meq/L 98-107 jiev=982) CO2 (BEAKER) (test 19 meq/L 22-29 sasx=036) BLOOD UREA NITROGEN 17 mg/dL 7-21 (BEAKER) (test oged=256) CREATININE (BEAKER) (test 0.91 mg/dL 0.57-1.25 dfmh=759) GLUCOSE RANDOM (BEAKER) 107 mg/dL 70-105 (test zsyh=932) CALCIUM (BEAKER) (test 9.4 mg/dL 8.4-10.2 firz=698) EGFR (BEAKER) (test 87 mL/min/1.73 sq m ESTIMATED GFR IS NOT rgwg=8144) ACCURATE CREATININE CLEARANCE IN PREDICTING GLOMERULAR FILTRATION RATE. ESTIMATED GFR IS NOT APPLICABLE FOR DIALYSIS PATIENTS. Specimen moderately ictericHEPATIC FUNCTION [id number] 05:44:00 Test Item Value Reference Range Comments TOTAL PROTEIN (BEAKER) (test wiuv=648) 5.6 gm/dL 6.0-8.3 ALBUMIN (BEAKER) (test zvqx=0668) 3.3 g/dL 3.5-5.0 BILIRUBIN TOTAL (BEAKER) (test mpbw=660) 10.3 mg/dL 0.2-1.2 BILIRUBIN DIRECT (BEAKER) (test jabj=596) 6.8 mg/dL 0.1-0.5 ALKALINE PHOSPHATASE (BEAKER) (test ojpd=110) 103 U/L 40-150 AST (SGOT) (BEAKER) (test pnwi=237) 17 U/L 5-34 ALT (SGPT) (BEAKER) (test todg=673) 8 U/L 6-55 Specimen moderately ictericPT/[id number] 05:31:00 Test Item Value Reference Range Comments PROTIME (BEAKER) (test diwt=182) 25.6 seconds 11.7-14.7 INR (BEAKER) (test jhfs=709) 2.3 <=5.9 PARTIAL THROMBOPLASTIN TIME (BEAKER) (test 51.6 seconds 22.5-36.0 rogq=281) RECOMMENDED COUMADIN/WARFARIN INR THERAPY RANGESSTANDARD DOSE: 2.0 - 3.0 Includes: PROPHYLAXIS forvenous thrombosis, systemic embolization; TREATMENT for venous thrombosis and/or pulmonary embolus.HIGH RISK: Target INR is 2.5-3.5 for patients with mechanical heart valves.PROTHROMBIN TIME/[id number] 05:30: 00 Test Item Value Reference Range Comments PROTIME (BEAKER) (test ztnv=206) 25.6 seconds 11.7-14.7 INR (BEAKER) (test ruvx=190) 2.3 <=5.9 RECOMMENDED COUMADIN/WARFARIN INR THERAPY RANGESSTANDARD DOSE: 2.0 - 3.0 Includes: PROPHYLAXIS forvenous thrombosis, systemic embolization; TREATMENT for venous thrombosis and/or pulmonary embolus.HIGH RISK: Target INR is 2.5-3.5 for patients with mechanical heart valves.BODY FLUID CELL COUNT WITH [id number] 19:30:00 Test Item Value Reference Range Comments APPEARANCE FLUID (BEAKER) (test ldwf=420) Slightly Hazy Clear COLOR FLUID (BEAKER) (test twav=839) Yellow Colorless, Straw RBC FLUID (BEAKER) (test xeea=327) 100 /cu mm <=1 ADJUSTED WBC FLUID (BEAKER) (test ybgc=3365) 36 /cu mm <=5 LINING CELLS (BEAKER) (test yipr=0535) 4 /cu mm <=1 NEUTROPHILS FLUID (BEAKER) (test lnuf=7696) 0 % LYMPHS FLUID (BEAKER) (test vfbn=197) 20 % MONO/MACROPHAGE FLUID (BEAKER) (test 80 % htlu=898) EOSINOPHILS FLUID (BEAKER) (test dzks=709) 0 % BASO FLUID (BEAKER) (test jnej=805) 0 % CONTAINER BODY FLUID (BEAKER) (test EDTA Tube hopm=7285) U/S, [id number] 16:21:00Reason for exam:->ascitesShould this be performed at the bedside?->NoFINAL REPORT PROCEDURE: Ultrasound-guided paracentesis. INDICATION: 52-year-old man with ascites. DESCRIPTION: After obtaining informed written consent, ultrasound scan of the abdomen identified ascites in the right lower quadrant. The overlying skin was prepped and draped in the usual, sterile fashion and local 1% lidocaine anesthesia was administered. A 5 [place]ian catheter was advanced into the peritoneal cavity and 13,200 cc of cloudy yellow fluid was removed. The catheter was removed without immediate complication. Samples were sent for analysis. IMPRESSION:Uncomplicated ultrasound-guided paracentesis with 13,200 cc fluid removed. Signed: Candice Mckeon MDReport Verified Date/Time: 2016 16:21:22 Reading Location: [place] [id number] Ultrasound Reading Room BASI METABOLIC [id number] 11:07:00 Test Item Value Reference Range Comments SODIUM (BEAKER) (test 127 meq/L 136-145 qbji=726) POTASSIUM (BEAKER) (test 4.1 meq/L 3.5-5.1 nwot=176) CHLORIDE (BEAKER) (test 101 meq/L 98-107 rwfv=687) CO2 (BEAKER) (test 23 meq/L 22-29 ozxh=488) BLOOD UREA NITROGEN 17 mg/dL 7-21 (BEAKER) (test mlig=655) CREATININE (BEAKER) (test 1.06 mg/dL 0.57-1.25 gyja=011) GLUCOSE RANDOM (BEAKER) 104 mg/dL 70-105 (test xxld=024) CALCIUM (BEAKER) (test 8.9 mg/dL 8.4-10.2 mnws=889) EGFR (BEAKER) (test 73 mL/min/1.73 sq m ESTIMATED GFR IS NOT cmoe=9048) ACCURATE CREATININE CLEARANCE IN PREDICTING GLOMERULAR FILTRATION RATE. ESTIMATED GFR IS NOT APPLICABLE FOR DIALYSIS PATIENTS. Specimen markedly ictericHEPATIC FUNCTION [id number] 11:07:00 Test Item Value Reference Range Comments TOTAL PROTEIN (BEAKER) (test rtox=724) 5.4 gm/dL 6.0-8.3 ALBUMIN (BEAKER) (test ayis=8022) 2.8 g/dL 3.5-5.0 BILIRUBIN TOTAL (BEAKER) (test abik=450) 12.7 mg/dL 0.2-1.2 BILIRUBIN DIRECT (BEAKER) (test cjpn=416) 7.8 mg/dL 0.1-0.5 ALKALINE PHOSPHATASE (BEAKER) (test ktun=702) 90 U/L 40-150 AST (SGOT) (BEAKER) (test swme=174) 22 U/L 5-34 ALT (SGPT) (BEAKER) (test dzwy=354) 11 U/L 6-55 Specimen markedly ictericPT/[id number] 11:02:00 Test Item Value Reference Range Comments PROTIME (BEAKER) (test wuhi=684) 23.4 seconds 11.7-14.7 INR (BEAKER) (test xlpr=065) 2.1 <=5.9 PARTIAL THROMBOPLASTIN TIME (BEAKER) (test 48.7 seconds 22.5-36.0 bttz=599) RECOMMENDED COUMADIN/WARFARIN INR THERAPY RANGESSTANDARD DOSE: 2.0 - 3.0 Includes: PROPHYLAXIS forvenous thrombosis, systemic embolization; TREATMENT for venous thrombosis and/or pulmonary embolus.HIGH RISK: Target INR is 2.5-3.5 for patients with mechanical heart valves.PROTHROMBIN TIME/[id number] 11:01: 00 Test Item Value Reference Range Comments PROTIME (BEAKER) (test ilpr=640) 23.4 seconds 11.7-14.7 INR (BEAKER) (test cywj=819) 2.1 <=5.9 RECOMMENDED COUMADIN/WARFARIN INR THERAPY RANGESSTANDARD DOSE: 2.0 - 3.0 Includes: PROPHYLAXIS forvenous thrombosis, systemic embolization; TREATMENT for venous thrombosis and/or pulmonary embolus.HIGH RISK: Target INR is 2.5-3.5 for patients with mechanical heart valves.CBC W/PLT COUNT & AUTO [id number] 10:56:00 Test Item Value Reference Range Comments WHITE BLOOD CELL COUNT (BEAKER) (test sqwi=472) 4.4 K/ L 3.5-10.5 RED BLOOD CELL COUNT (BEAKER) (test dorm=552) 2.48 M/ L 4.63-6.08 HEMOGLOBIN (BEAKER) (test kceg=783) 7.8 GM/DL 13.7-17.5 HEMATOCRIT (BEAKER) (test fhbz=031) 22.7 % 40.1-51.0 MEAN CORPUSCULAR VOLUME (BEAKER) (test ikiu=432) 91.5 fL 79.0-92.2 MEAN CORPUSCULAR HEMOGLOBIN (BEAKER) (test 31.5 pg 25.7-32.2 ntht=897) MEAN CORPUSCULAR HEMOGLOBIN CONC (BEAKER) (test 34.4 GM/DL 32.3-36.5 kfcq=828) RED CELL DISTRIBUTION WIDTH (BEAKER) (test 18.6 % 11.6-14.4 ljdx=527) PLATELET COUNT (BEAKER) (test sznr=070) 60 K/CU MM 150-450 MEAN PLATELET VOLUME (BEAKER) (test jolb=971) 8.8 fL 9.4-12.4 NUCLEATED RED BLOOD CELLS (BEAKER) (test 0 /100 WBC 0-0 rowo=561) NEUTROPHILS RELATIVE PERCENT (BEAKER) (test 61 % howt=521) LYMPHOCYTES RELATIVE PERCENT (BEAKER) (test 9 % lqgm=696) MONOCYTES RELATIVE PERCENT (BEAKER) (test 21 % iece=230) EOSINOPHILS RELATIVE PERCENT (BEAKER) (test 8 % dhlr=817) BASOPHILS RELATIVE PERCENT (BEAKER) (test 1 % smcv=473) NEUTROPHILS ABSOLUTE COUNT (BEAKER) (test 2.68 K/ L 1.78-5.38 skdx=840) LYMPHOCYTES ABSOLUTE COUNT (BEAKER) (test 0.38 K/ L 1.32-3.57 rhtt=498) MONOCYTES ABSOLUTE COUNT (BEAKER) (test uwhv=256) 0.94 K/ L 0.30-0.82 EOSINOPHILS ABSOLUTE COUNT (BEAKER) (test 0.33 K/ L 0.04-0.54 uzcg=996) BASOPHILS ABSOLUTE COUNT (BEAKER) (test sqyh=562) 0.02 K/ L 0.01-0.08 IMMATURE GRANULOCYTES-RELATIVE PERCENT (BEAKER) 1 % 0-1 (test dgzd=9076) URINALYSIS W/ [id number] 06:18:00 Test Item Value Reference Range Comments COLOR (BEAKER) (test dlef=675) Dark Yellow CLARITY (BEAKER) (test jbvj=121) Clear SPECIFIC GRAVITY UA (BEAKER) (test pysr=719) 1.008 1.001-1.035 PH UA (BEAKER) (test ndwz=710) 6.0 5.0-8.0 PROTEIN UA (BEAKER) (test uxly=579) Negative Negative GLUCOSE UA (BEAKER) (test xsoo=618) Negative Negative KETONES UA (BEAKER) (test upod=277) Negative Negative BILIRUBIN UA (BEAKER) (test tchw=977) Positive Negative BLOOD UA (BEAKER) (test dbgh=510) Moderate Negative NITRITE UA (BEAKER) (test yraq=874) Negative Negative LEUKOCYTE ESTERASE UA (BEAKER) (test laln=106) Negative Negative UROBILINOGEN UA (BEAKER) (test cwxh=688) 0.2 mg/dL 0.2-1.0 RBC UA (BEAKER) (test ewmj=320) 80 /HPF WBC UA (BEAKER) (test xpuc=509) 10 /HPF HYALINE CASTS (BEAKER) (test bscp=510) 5 /LPF AMORPHOUS CRYSTALS (BEAKER) (test vbrf=2020) Rare SOURCE(BEAKER) (test tyxa=9626) CBC W/PLT COUNT & AUTO [id number] 00:00:00 Test Item Value Reference Range Comments WHITE BLOOD CELL COUNT (BEAKER) (test vrnr=582) 3.7 K/ L 3.5-10.5 RED BLOOD CELL COUNT (BEAKER) (test jowk=566) 2.20 M/ L 4.63-6.08 HEMOGLOBIN (BEAKER) (test zvov=654) 7.0 GM/DL 13.7-17.5 HEMATOCRIT (BEAKER) (test dsyz=726) 20.2 % 40.1-51.0 MEAN CORPUSCULAR VOLUME (BEAKER) (test qmcv=446) 91.8 fL 79.0-92.2 MEAN CORPUSCULAR HEMOGLOBIN (BEAKER) (test 31.8 pg 25.7-32.2 rnnm=526) MEAN CORPUSCULAR HEMOGLOBIN CONC (BEAKER) (test 34.7 GM/DL 32.3-36.5 nprv=848) RED CELL DISTRIBUTION WIDTH (BEAKER) (test 19.3 % 11.6-14.4 vtad=208) PLATELET COUNT (BEAKER) (test znjd=738) 63 K/CU MM 150-450 MEAN PLATELET VOLUME (BEAKER) (test idud=231) 9.1 fL 9.4-12.4 NUCLEATED RED BLOOD CELLS (BEAKER) (test 0 /100 WBC 0-0 ykds=402) NEUTROPHILS RELATIVE PERCENT (BEAKER) (test 62 % ihar=117) LYMPHOCYTES RELATIVE PERCENT (BEAKER) (test 11 % oetb=515) MONOCYTES RELATIVE PERCENT (BEAKER) (test 19 % yhsx=675) EOSINOPHILS RELATIVE PERCENT (BEAKER) (test 7 % lfbp=865) BASOPHILS RELATIVE PERCENT (BEAKER) (test 1 % kpyx=794) NEUTROPHILS ABSOLUTE COUNT (BEAKER) (test 2.29 K/ L 1.78-5.38 tjdm=454) LYMPHOCYTES ABSOLUTE COUNT (BEAKER) (test 0.39 K/ L 1.32-3.57 mjzp=579) MONOCYTES ABSOLUTE COUNT (BEAKER) (test mext=560) 0.71 K/ L 0.30-0.82 EOSINOPHILS ABSOLUTE COUNT (BEAKER) (test 0.27 K/ L 0.04-0.54 crsj=084) BASOPHILS ABSOLUTE COUNT (BEAKER) (test pxpw=130) 0.02 K/ L 0.01-0.08 IMMATURE GRANULOCYTES-RELATIVE PERCENT (BEAKER) 1 % 0-1 (test jyor=3638) PROTHROMBIN [id number] 22:52:00 Test Item Value Reference Range Comments PROTIME (BEAKER) (test ndow=429) 25.6 seconds 11.7-14.7 INR (BEAKER) (test fenj=907) 2.3 <=5.9 RECOMMENDED COUMADIN/WARFARIN INR THERAPY RANGESSTANDARD DOSE: 2.0 - 3.0 Includes: PROPHYLAXIS forvenous thrombosis, systemic embolization; TREATMENT for venous thrombosis and/or pulmonary embolus.HIGH RISK: Target INR is 2.5-3.5 for patients with mechanical heart valves.[id number] 22:52:00 Test Item Value Reference Range Comments MAGNESIUM (BEAKER) (test cvmc=516) 1.3 mg/dL 1.6-2.6 BASIC METABOLIC [id number] 22:52:00 Test Item Value Reference Range Comments SODIUM (BEAKER) (test 124 meq/L 136-145 bjag=556) POTASSIUM (BEAKER) (test 4.1 meq/L 3.5-5.1 zkpc=585) CHLORIDE (BEAKER) (test 99 meq/L 98-107 abgz=140) CO2 (BEAKER) (test 18 meq/L 22-29 nmyw=545) BLOOD UREA NITROGEN 16 mg/dL 7-21 (BEAKER) (test zavl=995) CREATININE (BEAKER) (test 0.97 mg/dL 0.57-1.25 iqkq=676) GLUCOSE RANDOM (BEAKER) 99 mg/dL 70-105 (test uagk=682) CALCIUM (BEAKER) (test 8.7 mg/dL 8.4-10.2 dddr=122) EGFR (BEAKER) (test 81 mL/min/1.73 sq m ESTIMATED GFR IS NOT vnoi=4418) ACCURATE CREATININE CLEARANCE IN PREDICTING GLOMERULAR FILTRATION RATE. ESTIMATED GFR IS NOT APPLICABLE FOR DIALYSIS PATIENTS. Specimen markedly ictericHEPATIC FUNCTION [id number] 22:52:00 Test Item Value Reference Range Comments TOTAL PROTEIN (BEAKER) (test gwpl=881) 5.3 gm/dL 6.0-8.3 ALBUMIN (BEAKER) (test xqbc=1101) 2.8 g/dL 3.5-5.0 BILIRUBIN TOTAL (BEAKER) (test odxv=040) 12.7 mg/dL 0.2-1.2 BILIRUBIN DIRECT (BEAKER) (test tgtp=440) 7.6 mg/dL 0.1-0.5 ALKALINE PHOSPHATASE (BEAKER) (test tyci=936) 93 U/L 40-150 AST (SGOT) (BEAKER) (test ommw=949) 21 U/L 5-34 ALT (SGPT) (BEAKER) (test qdlh=321) 9 U/L 6-55 Specimen markedly ictericALPHA FETOPROTEIN (AFP), TUMOR [id number] 16:39: 00 Test Item Value Reference Range Comments ALPHA-FETOPROTEIN (BEAKER) (test kvlo=6169) 2.5 ng/mL <10.0 BASIC METABOLIC [id number] 15:53:00 Test Item Value Reference Range Comments SODIUM (BEAKER) (test 126 meq/L 136-145 qwuw=729) POTASSIUM (BEAKER) (test 5.1 meq/L 3.5-5.1 fulj=654) CHLORIDE (BEAKER) (test 101 meq/L 98-107 mghb=584) CO2 (BEAKER) (test 19 meq/L 22-29 zaxm=433) BLOOD UREA NITROGEN 14 mg/dL 7-21 (BEAKER) (test goiv=057) CREATININE (BEAKER) (test 1.01 mg/dL 0.57-1.25 hpcc=635) GLUCOSE RANDOM (BEAKER) 104 mg/dL 70-105 (test qkzg=976) CALCIUM (BEAKER) (test 9.0 mg/dL 8.4-10.2 nfcs=907) EGFR (BEAKER) (test 78 mL/min/1.73 sq m ESTIMATED GFR IS NOT qncj=9880) ACCURATE CREATININE CLEARANCE IN PREDICTING GLOMERULAR FILTRATION RATE. ESTIMATED GFR IS NOT APPLICABLE FOR DIALYSIS PATIENTS. Specimen moderately ictericHEPATIC FUNCTION [id number] 15:53:00 Test Item Value Reference Range Comments TOTAL PROTEIN (BEAKER) (test mahi=989) 6.1 gm/dL 6.0-8.3 ALBUMIN (BEAKER) (test evfv=8381) 2.6 g/dL 3.5-5.0 BILIRUBIN TOTAL (BEAKER) (test obvd=520) 10.4 mg/dL 0.2-1.2 BILIRUBIN DIRECT (BEAKER) (test pyem=932) 7.5 mg/dL 0.1-0.5 ALKALINE PHOSPHATASE (BEAKER) (test wicj=474) 124 U/L 40-150 AST (SGOT) (BEAKER) (test gnzk=382) 29 U/L 5-34 ALT (SGPT) (BEAKER) (test thnr=716) 12 U/L 6-55 Specimen moderately ictericGAMMA GLUTAMYL TRANSFERASE (GGT)[id number] 15:53:00 Test Item Value Reference Range Comments GAMMA GLUTAMYL TRANSFERASE (BEAKER) (test rgde=070) 17 U/L 9-64 Specimen moderately ictericPROTHROMBIN [id number] 15:40:00 Test Item Value Reference Range Comments PROTIME (BEAKER) (test zkdp=311) 22.6 seconds 11.7-14.7 INR (BEAKER) (test xzcd=525) 2.0 <=5.9 RECOMMENDED COUMADIN/WARFARIN INR THERAPY RANGESSTANDARD DOSE: 2.0 - 3.0 Includes: PROPHYLAXIS forvenous thrombosis, systemic embolization; TREATMENT for venous thrombosis and/or pulmonary embolus.HIGH RISK: Target INR is 2.5-3.5 for patients with mechanical heart valves.CBC W/PLT COUNT & AUTO [id number] 15:38:00 Test Item Value Reference Range Comments WHITE BLOOD CELL COUNT (BEAKER) (test qwth=765) 7.3 K/ L 3.5-10.5 RED BLOOD CELL COUNT (BEAKER) (test nrqy=685) 2.78 M/ L 4.63-6.08 HEMOGLOBIN (BEAKER) (test fepv=313) 9.1 GM/DL 13.7-17.5 HEMATOCRIT (BEAKER) (test muca=399) 27.3 % 40.1-51.0 MEAN CORPUSCULAR VOLUME (BEAKER) (test jnea=665) 98.2 fL 79.0-92.2 MEAN CORPUSCULAR HEMOGLOBIN (BEAKER) (test 32.7 pg 25.7-32.2 gcfz=440) MEAN CORPUSCULAR HEMOGLOBIN CONC (BEAKER) (test 33.3 GM/DL 32.3-36.5 znhz=151) RED CELL DISTRIBUTION WIDTH (BEAKER) (test 16.4 % 11.6-14.4 rfzx=405) PLATELET COUNT (BEAKER) (test ttbx=214) 71 K/CU MM 150-450 MEAN PLATELET VOLUME (BEAKER) (test safp=566) 9.1 fL 9.4-12.4 NUCLEATED RED BLOOD CELLS (BEAKER) (test 0 /100 WBC 0-0 jcjg=233) NEUTROPHILS RELATIVE PERCENT (BEAKER) (test 71 % ukpv=239) LYMPHOCYTES RELATIVE PERCENT (BEAKER) (test 8 % fahd=894) MONOCYTES RELATIVE PERCENT (BEAKER) (test 15 % rnad=031) EOSINOPHILS RELATIVE PERCENT (BEAKER) (test 5 % jgku=771) BASOPHILS RELATIVE PERCENT (BEAKER) (test 0 % recj=202) NEUTROPHILS ABSOLUTE COUNT (BEAKER) (test 5.13 K/ L 1.78-5.38 nfht=614) LYMPHOCYTES ABSOLUTE COUNT (BEAKER) (test 0.59 K/ L 1.32-3.57 krmk=457) MONOCYTES ABSOLUTE COUNT (BEAKER) (test aazx=795) 1.06 K/ L 0.30-0.82 EOSINOPHILS ABSOLUTE COUNT (BEAKER) (test 0.33 K/ L 0.04-0.54 hlcc=238) BASOPHILS ABSOLUTE COUNT (BEAKER) (test yfwa=037) 0.03 K/ L 0.01-0.08 IMMATURE GRANULOCYTES-RELATIVE PERCENT (BEAKER) 2 % 0-1 (test iegv=3671) FUNGUS CULTURE + [id number] 07:22:00 Test Item Value Reference Range Comments CULTURE (BEAKER) (test No fungus isolated in 28 days cflt=3053) FUNGUS SMEAR (BEAKER) (test No fungi seen rpix=2971) HISTOPLASMA ANTIGEN, [id number] 08:01:00 Test Item Value Reference Range Comments SCAN RESULT (test oghn=[id number]) TISSUE [id number] 10:58:00 Test Item Value Reference Range Comments LAB AP CPT CODE (BEAKER) (test tlro=8306) [id number] BLOOD [id number] 16:15:00 Test Item Value Reference Range Comments CULTURE (BEAKER) (test auaj=9603) No growth in 5 days BLOOD [id number] 16:15:00 Test Item Value Reference Range Comments CULTURE (BEAKER) (test gcht=4957) No growth in 5 days [id number] 06:54:00 Test Item Value Reference Range Comments PHOSPHORUS (BEAKER) (test vbis=175) 3.3 mg/dL 2.3-4.7 [id number] 06:54:00 Test Item Value Reference Range Comments MAGNESIUM (BEAKER) (test kchm=158) 1.2 mg/dL 1.6-2.6 BASIC METABOLIC [id number] 06:54:00 Test Item Value Reference Range Comments SODIUM (BEAKER) (test 133 meq/L 136-145 fmey=201) POTASSIUM (BEAKER) (test 3.6 meq/L 3.5-5.1 gsdo=667) CHLORIDE (BEAKER) (test 108 meq/L 98-107 ffcq=681) CO2 (BEAKER) (test 17 meq/L 22-29 ekyr=444) BLOOD UREA NITROGEN 13 mg/dL 7-21 (BEAKER) (test nzey=664) CREATININE (BEAKER) (test 1.16 mg/dL 0.57-1.25 isnx=972) GLUCOSE RANDOM (BEAKER) 82 mg/dL 70-105 (test wphi=991) CALCIUM (BEAKER) (test 8.0 mg/dL 8.4-10.2 kkem=235) EGFR (BEAKER) (test 66 mL/min/1.73 sq m ESTIMATED GFR IS NOT fkob=1978) ACCURATE CREATININE CLEARANCE IN PREDICTING GLOMERULAR FILTRATION RATE. ESTIMATED GFR IS NOT APPLICABLE FOR DIALYSIS PATIENTS. Specimen moderately ictericHEPATIC FUNCTION [id number] 06:54:00 Test Item Value Reference Range Comments TOTAL PROTEIN (BEAKER) (test ngmk=172) 5.7 gm/dL 6.0-8.3 ALBUMIN (BEAKER) (test ksbk=3234) 3.1 g/dL 3.5-5.0 BILIRUBIN TOTAL (BEAKER) (test uskz=287) 5.2 mg/dL 0.2-1.2 BILIRUBIN DIRECT (BEAKER) (test edqb=558) 2.6 mg/dL 0.1-0.5 ALKALINE PHOSPHATASE (BEAKER) (test xuql=110) 55 U/L 40-150 AST (SGOT) (BEAKER) (test kypu=325) 32 U/L 5-34 ALT (SGPT) (BEAKER) (test yiim=844) 9 U/L 6-55 Specimen moderately ictericCALCIUM, [id number] 06:30:00 Test Item Value Reference Range Comments CALCIUM IONIZED (BEAKER) (test ywji=106) 1.00 mmol/L 1.12-1.27 PH, BLOOD (BEAKER) (test tvkl=2115) 7.52 CBC W/PLT COUNT & AUTO [id number] 06:17:00 Test Item Value Reference Range Comments WHITE BLOOD CELL COUNT (BEAKER) (test ygqt=315) 4.7 K/ L 4.0-10.0 RED BLOOD CELL COUNT (BEAKER) (test krvc=989) 2.05 M/ L 4.20-5.80 HEMOGLOBIN (BEAKER) (test xoia=200) 7.1 GM/DL 13.0-16.8 HEMATOCRIT (BEAKER) (test znhd=061) 21.1 % 40.0-50.0 MEAN CORPUSCULAR VOLUME (BEAKER) (test juqj=824) 103.0 fL 82.0-98.0 MEAN CORPUSCULAR HEMOGLOBIN (BEAKER) (test 34.8 pg 27.0-33.0 avgf=740) MEAN CORPUSCULAR HEMOGLOBIN CONC (BEAKER) (test 33.8 GM/DL 32.0-36.0 kytq=246) RED CELL DISTRIBUTION WIDTH (BEAKER) (test 13.9 % 10.3-14.2 lzvn=336) PLATELET COUNT (BEAKER) (test lefo=184) 71 K/CU MM 150-430 MEAN PLATELET VOLUME (BEAKER) (test fwhv=174) 6.6 fL 6.5-10.5 NUCLEATED RED BLOOD CELLS (BEAKER) (test 0 /100 WBC 0-0 cazj=222) NEUTROPHILS RELATIVE PERCENT (BEAKER) (test 68 % ibtc=182) LYMPHOCYTES RELATIVE PERCENT (BEAKER) (test 16 % fxff=660) MONOCYTES RELATIVE PERCENT (BEAKER) (test 12 % uwjg=246) EOSINOPHILS RELATIVE PERCENT (BEAKER) (test 4 % ruqd=819) BASOPHILS RELATIVE PERCENT (BEAKER) (test 1 % oyxs=487) NEUTROPHILS ABSOLUTE COUNT (BEAKER) (test 3.21 K/ L 1.80-8.00 vkcq=852) LYMPHOCYTES ABSOLUTE COUNT (BEAKER) (test 0.75 K/ L 1.48-4.50 ajzg=486) MONOCYTES ABSOLUTE COUNT (BEAKER) (test rrhv=459) 0.57 K/ L 0.00-1.30 EOSINOPHILS ABSOLUTE COUNT (BEAKER) (test 0.19 K/ L 0.00-0.50 uyqx=769) BASOPHILS ABSOLUTE COUNT (BEAKER) (test hiae=699) 0.03 K/ L 0.00-0.20 0.00PROTHROMBIN [id number] 05:56:00 Test Item Value Reference Range Comments PROTIME (BEAKER) (test qrrf=085) 26.4 seconds 11.7-14.7 INR (BEAKER) (test uanx=892) 2.4 <=5.9 RECOMMENDED COUMADIN/WARFARIN INR THERAPY RANGESSTANDARD DOSE: 2.0 - 3.0 Includes: PROPHYLAXIS forvenous thrombosis, systemic embolization; TREATMENT for venous thrombosis and/or pulmonary embolus.HIGH RISK: Target INR is 2.5-3.5 for patients with mechanical heart valves.BASIC METABOLIC [id number] 04:44: 00 Test Item Value Reference Range Comments SODIUM (BEAKER) (test 134 meq/L 136-145 wfsd=331) POTASSIUM (BEAKER) (test 3.6 meq/L 3.5-5.1 wrkq=124) CHLORIDE (BEAKER) (test 108 meq/L 98-107 codm=634) CO2 (BEAKER) (test 19 meq/L 22-29 hxat=338) BLOOD UREA NITROGEN 12 mg/dL 7-21 (BEAKER) (test riou=727) CREATININE (BEAKER) (test 1.32 mg/dL 0.57-1.25 lrlc=986) GLUCOSE RANDOM (BEAKER) 82 mg/dL 70-105 (test ltvp=085) CALCIUM (BEAKER) (test 7.9 mg/dL 8.4-10.2 jfae=062) EGFR (BEAKER) (test 57 mL/min/1.73 sq m ESTIMATED GFR IS NOT dcnx=8727) ACCURATE CREATININE CLEARANCE IN PREDICTING GLOMERULAR FILTRATION RATE. ESTIMATED GFR IS NOT APPLICABLE FOR DIALYSIS PATIENTS. Specimen moderately ictericHEPATIC FUNCTION [id number] 04:42:00 Test Item Value Reference Range Comments TOTAL PROTEIN (BEAKER) (test dtnx=325) 5.8 gm/dL 6.0-8.3 ALBUMIN (BEAKER) (test vqdl=5887) 3.1 g/dL 3.5-5.0 BILIRUBIN TOTAL (BEAKER) (test eawz=348) 5.1 mg/dL 0.2-1.2 BILIRUBIN DIRECT (BEAKER) (test gipo=831) 2.7 mg/dL 0.1-0.5 ALKALINE PHOSPHATASE (BEAKER) (test wyhg=610) 51 U/L 40-150 AST (SGOT) (BEAKER) (test xcit=404) 27 U/L 5-34 ALT (SGPT) (BEAKER) (test donm=670) 7 U/L 6-55 Specimen moderately ictericCBC W/PLT COUNT & AUTO [id number] 04: 35:00 Test Item Value Reference Range Comments WHITE BLOOD CELL COUNT (BEAKER) (test ynai=726) 4.6 K/ L 4.0-10.0 RED BLOOD CELL COUNT (BEAKER) (test nfwb=028) 2.06 M/ L 4.20-5.80 HEMOGLOBIN (BEAKER) (test eumc=732) 7.2 GM/DL 13.0-16.8 HEMATOCRIT (BEAKER) (test hvwx=997) 21.5 % 40.0-50.0 MEAN CORPUSCULAR VOLUME (BEAKER) (test tixl=841) 104.0 fL 82.0-98.0 MEAN CORPUSCULAR HEMOGLOBIN (BEAKER) (test 35.0 pg 27.0-33.0 stjs=057) MEAN CORPUSCULAR HEMOGLOBIN CONC (BEAKER) (test 33.6 GM/DL 32.0-36.0 gabl=310) RED CELL DISTRIBUTION WIDTH (BEAKER) (test 13.4 % 10.3-14.2 svgi=268) PLATELET COUNT (BEAKER) (test uyrj=436) 76 K/CU MM 150-430 MEAN PLATELET VOLUME (BEAKER) (test hvwj=768) 6.5 fL 6.5-10.5 NUCLEATED RED BLOOD CELLS (BEAKER) (test 0 /100 WBC 0-0 sudb=142) NEUTROPHILS RELATIVE PERCENT (BEAKER) (test 64 % rrpe=184) LYMPHOCYTES RELATIVE PERCENT (BEAKER) (test 16 % ycda=427) MONOCYTES RELATIVE PERCENT (BEAKER) (test 16 % zjjz=447) EOSINOPHILS RELATIVE PERCENT (BEAKER) (test 4 % uzib=407) BASOPHILS RELATIVE PERCENT (BEAKER) (test 1 % tcjl=046) NEUTROPHILS ABSOLUTE COUNT (BEAKER) (test 2.89 K/ L 1.80-8.00 kjpm=445) LYMPHOCYTES ABSOLUTE COUNT (BEAKER) (test 0.72 K/ L 1.48-4.50 qskt=784) MONOCYTES ABSOLUTE COUNT (BEAKER) (test fwui=649) 0.71 K/ L 0.00-1.30 EOSINOPHILS ABSOLUTE COUNT (BEAKER) (test 0.20 K/ L 0.00-0.50 unwc=567) BASOPHILS ABSOLUTE COUNT (BEAKER) (test awju=217) 0.03 K/ L 0.00-0.20 0.00PROTHROMBIN [id number] 04:33:00 Test Item Value Reference Range Comments PROTIME (BEAKER) (test jwil=914) 30.2 seconds 11.7-14.7 INR (BEAKER) (test gofj=888) 2.9 <=5.9 RECOMMENDED COUMADIN/WARFARIN INR THERAPY RANGESSTANDARD DOSE: 2.0 - 3.0 Includes: PROPHYLAXIS forvenous thrombosis, systemic embolization; TREATMENT for venous thrombosis and/or pulmonary embolus.HIGH RISK: Target INR is 2.5-3.5 for patients with mechanical heart valves.VANCOMYCIN LEVEL, [id number] 17: 04:00 Test Item Value Reference Range Comments VANCOMYCIN TROUGH (BEAKER) (test iwue=145) 12.2 ug/mL 10.0-20.0 URINE [id number] 14:25:00 Test Item Value Reference Range Comments CULTURE (BEAKER) (test fbwl=4802) No growth TSH/FREE T4 IF [id number] 14:22:00 Test Item Value Reference Range Comments THYROID STIMULATING HORMONE (BEAKER) (test 3.53 uIU/mL 0.35-4.94 nuge=597) URINE [id number] 11:43:00 Test Item Value Reference Range Comments CULTURE (BEAKER) (test nonp=9201) No growth CBC W/PLT COUNT & AUTO [id number] 07:55:00 Test Item Value Reference Range Comments WHITE BLOOD CELL COUNT (BEAKER) (test ritx=527) 4.5 K/ L 4.0-10.0 RED BLOOD CELL COUNT (BEAKER) (test edvl=137) 2.06 M/ L 4.20-5.80 HEMOGLOBIN (BEAKER) (test zwrp=769) 7.1 GM/DL 13.0-16.8 HEMATOCRIT (BEAKER) (test cvjj=525) 21.5 % 40.0-50.0 MEAN CORPUSCULAR VOLUME (BEAKER) (test zfsp=722) 104.0 fL 82.0-98.0 MEAN CORPUSCULAR HEMOGLOBIN (BEAKER) (test 34.5 pg 27.0-33.0 pgxv=724) MEAN CORPUSCULAR HEMOGLOBIN CONC (BEAKER) (test 33.1 GM/DL 32.0-36.0 jtuh=569) RED CELL DISTRIBUTION WIDTH (BEAKER) (test 13.4 % 10.3-14.2 tzwg=994) PLATELET COUNT (BEAKER) (test aaei=539) 79 K/CU MM 150-430 MEAN PLATELET VOLUME (BEAKER) (test axnf=642) 6.8 fL 6.5-10.5 NUCLEATED RED BLOOD CELLS (BEAKER) (test 0 /100 WBC 0-0 sska=531) NEUTROPHILS RELATIVE PERCENT (BEAKER) (test 64 % gxpx=260) LYMPHOCYTES RELATIVE PERCENT (BEAKER) (test 16 % potw=971) MONOCYTES RELATIVE PERCENT (BEAKER) (test 15 % vynf=652) EOSINOPHILS RELATIVE PERCENT (BEAKER) (test 5 % rqfp=896) BASOPHILS RELATIVE PERCENT (BEAKER) (test 0 % ivhn=988) NEUTROPHILS ABSOLUTE COUNT (BEAKER) (test 2.88 K/ L 1.80-8.00 uiyo=284) LYMPHOCYTES ABSOLUTE COUNT (BEAKER) (test 0.73 K/ L 1.48-4.50 klpj=903) MONOCYTES ABSOLUTE COUNT (BEAKER) (test bjay=772) 0.68 K/ L 0.00-1.30 EOSINOPHILS ABSOLUTE COUNT (BEAKER) (test 0.23 K/ L 0.00-0.50 iphg=279) BASOPHILS ABSOLUTE COUNT (BEAKER) (test yeqh=327) 0.02 K/ L 0.00-0.20 0.00BASIC METABOLIC [id number] 05:58:00 Test Item Value Reference Range Comments SODIUM (BEAKER) (test 137 meq/L 136-145 qept=476) POTASSIUM (BEAKER) (test 3.7 meq/L 3.5-5.1 bgdt=464) CHLORIDE (BEAKER) (test 110 meq/L 98-107 ufni=699) CO2 (BEAKER) (test 19 meq/L 22-29 bjlo=212) BLOOD UREA NITROGEN 12 mg/dL 7-21 (BEAKER) (test gipg=897) CREATININE (BEAKER) (test 1.29 mg/dL 0.57-1.25 fmpk=739) GLUCOSE RANDOM (BEAKER) 80 mg/dL 70-105 (test bria=925) CALCIUM (BEAKER) (test 8.1 mg/dL 8.4-10.2 iyzr=142) EGFR (BEAKER) (test 59 mL/min/1.73 sq m ESTIMATED GFR IS NOT apxp=3371) ACCURATE CREATININE CLEARANCE IN PREDICTING GLOMERULAR FILTRATION RATE. ESTIMATED GFR IS NOT APPLICABLE FOR DIALYSIS PATIENTS. Specimen moderately ictericHEPATIC FUNCTION [id number] 05:58:00 Test Item Value Reference Range Comments TOTAL PROTEIN (BEAKER) (test dvpl=611) 5.9 gm/dL 6.0-8.3 ALBUMIN (BEAKER) (test owfh=8984) 3.4 g/dL 3.5-5.0 BILIRUBIN TOTAL (BEAKER) (test xnhg=611) 5.6 mg/dL 0.2-1.2 BILIRUBIN DIRECT (BEAKER) (test yjoh=268) 2.6 mg/dL 0.1-0.5 ALKALINE PHOSPHATASE (BEAKER) (test pvks=367) 50 U/L 40-150 AST (SGOT) (BEAKER) (test puco=431) 30 U/L 5-34 ALT (SGPT) (BEAKER) (test luyy=271) 9 U/L 6-55 Specimen moderately ictericPROTHROMBIN [id number] 05:31:00 Test Item Value Reference Range Comments PROTIME (BEAKER) (test voji=153) 29.0 seconds 11.7-14.7 INR (BEAKER) (test nrmd=901) 2.7 <=5.9 RECOMMENDED COUMADIN/WARFARIN INR THERAPY RANGESSTANDARD DOSE: 2.0 - 3.0 Includes: PROPHYLAXIS forvenous thrombosis, systemic embolization; TREATMENT for venous thrombosis and/or pulmonary embolus.HIGH RISK: Target INR is 2.5-3.5 for patients with mechanical heart valves.ANAEROBIC [id number] 05:15:00 Test Item Value Reference Range Comments CULTURE (BEAKER) (test bhes=6731) No anaerobes isolated BLOOD [id number] 00:00:00 Test Item Value Reference Range Comments CULTURE (BEAKER) (test qbvw=2821) No growth in 5 days BLOOD [id number] 00:00:00 Test Item Value Reference Range Comments CULTURE (BEAKER) (test asds=1104) No growth in 5 days URINALYSIS W/ REFLEX URINE [id number] 08:28:00 Test Item Value Reference Range Comments COLOR (BEAKER) (test logv=062) Yellow CLARITY (BEAKER) (test wwux=356) Clear SPECIFIC GRAVITY UA (BEAKER) (test trnk=115) 1.006 1.001-1.035 PH UA (BEAKER) (test xgds=824) 6.5 5.0-8.0 PROTEIN UA (BEAKER) (test zmtz=087) Negative Negative GLUCOSE UA (BEAKER) (test zhdd=922) Negative Negative KETONES UA (BEAKER) (test xlpk=450) Negative Negative BILIRUBIN UA (BEAKER) (test qmba=391) Negative Negative BLOOD UA (BEAKER) (test sdwz=985) Negative Negative NITRITE UA (BEAKER) (test qfei=496) Negative Negative LEUKOCYTE ESTERASE UA (BEAKER) (test ksne=344) Small Negative UROBILINOGEN UA (BEAKER) (test imhs=385) 0.2 mg/dL 0.2-1.0 RBC UA (BEAKER) (test jzwc=270) 1 /HPF WBC UA (BEAKER) (test nnsk=454) 6 /HPF BACTERIA (BEAKER) (test mydd=104) Rare SOURCE(BEAKER) (test xkbf=5185) CBC W/PLT COUNT & AUTO [id number] 07:21:00 Test Item Value Reference Range Comments WHITE BLOOD CELL COUNT (BEAKER) (test yiml=477) 5.9 K/ L 4.0-10.0 RED BLOOD CELL COUNT (BEAKER) (test fxnw=925) 2.12 M/ L 4.20-5.80 HEMOGLOBIN (BEAKER) (test vjua=129) 7.3 GM/DL 13.0-16.8 HEMATOCRIT (BEAKER) (test pilu=312) 22.2 % 40.0-50.0 MEAN CORPUSCULAR VOLUME (BEAKER) (test pnvz=671) 105.0 fL 82.0-98.0 MEAN CORPUSCULAR HEMOGLOBIN (BEAKER) (test 34.2 pg 27.0-33.0 emwv=891) MEAN CORPUSCULAR HEMOGLOBIN CONC (BEAKER) (test 32.7 GM/DL 32.0-36.0 vntg=604) RED CELL DISTRIBUTION WIDTH (BEAKER) (test 13.1 % 10.3-14.2 lvuu=952) PLATELET COUNT (BEAKER) (test ptgj=154) 80 K/CU MM 150-430 MEAN PLATELET VOLUME (BEAKER) (test qlvk=858) 6.5 fL 6.5-10.5 NUCLEATED RED BLOOD CELLS (BEAKER) (test 0 /100 WBC 0-0 virj=878) NEUTROPHILS RELATIVE PERCENT (BEAKER) (test 67 % fpcj=076) LYMPHOCYTES RELATIVE PERCENT (BEAKER) (test 14 % amsd=336) MONOCYTES RELATIVE PERCENT (BEAKER) (test 14 % tdjq=281) EOSINOPHILS RELATIVE PERCENT (BEAKER) (test 4 % ighh=367) BASOPHILS RELATIVE PERCENT (BEAKER) (test 0 % qiqc=861) NEUTROPHILS ABSOLUTE COUNT (BEAKER) (test 3.97 K/ L 1.80-8.00 urhr=862) LYMPHOCYTES ABSOLUTE COUNT (BEAKER) (test 0.85 K/ L 1.48-4.50 daem=224) MONOCYTES ABSOLUTE COUNT (BEAKER) (test qqkq=270) 0.81 K/ L 0.00-1.30 EOSINOPHILS ABSOLUTE COUNT (BEAKER) (test 0.25 K/ L 0.00-0.50 vnef=298) BASOPHILS ABSOLUTE COUNT (BEAKER) (test iqmf=226) 0.03 K/ L 0.00-0.20 [id number] 06:35:00 Test Item Value Reference Range Comments PHOSPHORUS (BEAKER) (test pypu=296) 3.5 mg/dL 2.3-4.7 [id number] 06:35:00 Test Item Value Reference Range Comments MAGNESIUM (BEAKER) (test nqng=979) 1.7 mg/dL 1.6-2.6 BASIC METABOLIC [id number] 06:35:00 Test Item Value Reference Range Comments SODIUM (BEAKER) (test 137 meq/L 136-145 iade=715) POTASSIUM (BEAKER) (test 4.0 meq/L 3.5-5.1 xoox=542) CHLORIDE (BEAKER) (test 109 meq/L 98-107 chsv=765) CO2 (BEAKER) (test 20 meq/L 22-29 ypsm=132) BLOOD UREA NITROGEN 13 mg/dL 7-21 (BEAKER) (test yrga=235) CREATININE (BEAKER) (test 1.56 mg/dL 0.57-1.25 xhou=123) GLUCOSE RANDOM (BEAKER) 85 mg/dL 70-105 (test cvxh=106) CALCIUM (BEAKER) (test 8.4 mg/dL 8.4-10.2 ynsb=710) EGFR (BEAKER) (test 47 mL/min/1.73 sq m ESTIMATED GFR IS NOT dysu=7173) ACCURATE CREATININE CLEARANCE IN PREDICTING GLOMERULAR FILTRATION RATE. ESTIMATED GFR IS NOT APPLICABLE FOR DIALYSIS PATIENTS. Specimen moderately ictericHEPATIC FUNCTION [id number] 06:35:00 Test Item Value Reference Range Comments TOTAL PROTEIN (BEAKER) (test kjsz=831) 6.5 gm/dL 6.0-8.3 ALBUMIN (BEAKER) (test japp=5933) 3.8 g/dL 3.5-5.0 BILIRUBIN TOTAL (BEAKER) (test pvgi=577) 6.1 mg/dL 0.2-1.2 BILIRUBIN DIRECT (BEAKER) (test lfhx=571) 2.9 mg/dL 0.1-0.5 ALKALINE PHOSPHATASE (BEAKER) (test jptu=162) 54 U/L 40-150 AST (SGOT) (BEAKER) (test musl=609) 28 U/L 5-34 ALT (SGPT) (BEAKER) (test dcbb=912) 7 U/L 6-55 Specimen moderately ictericPROTHROMBIN [id number] 06:06:00 Test Item Value Reference Range Comments PROTIME (BEAKER) (test twia=065) 26.1 seconds 11.7-14.7 INR (BEAKER) (test hpje=513) 2.4 <=5.9 RECOMMENDED COUMADIN/WARFARIN INR THERAPY RANGESSTANDARD DOSE: 2.0 - 3.0 Includes: PROPHYLAXIS forvenous thrombosis, systemic embolization; TREATMENT for venous thrombosis and/or pulmonary embolus.HIGH RISK: Target INR is 2.5-3.5 for patients with mechanical heart valves.CALCIUM, [id number] 06:06:00 Test Item Value Reference Range Comments CALCIUM IONIZED (BEAKER) (test zjfd=098) 1.06 mmol/L 1.12-1.27 PH, BLOOD (BEAKER) (test acqj=9144) 7.46 SURGICALLY OBTAINED CULTURE + GRAM [id number] 23:51:00 Test Item Value Reference Range Comments CULTURE (BEAKER) (test wbwa=7589) No growth GRAM STAIN RESULT (BEAKER) (test 1+ WBCs xqnu=8266) GRAM STAIN RESULT (BEAKER) (test No organisms seen owkr=81702) BODY FLUID CULTURE + GRAM [id number] 23:42:00 Test Item Value Reference Range Comments CULTURE (BEAKER) (test ydbk=8820) No growth GRAM STAIN RESULT (BEAKER) (test 1+ WBCs booh=8808) GRAM STAIN RESULT (BEAKER) (test No organisms seen dmjt=94672) BODY FLUID CELL COUNT WITH [id number] 19:59:00 Test Item Value Reference Range Comments APPEARANCE FLUID (BEAKER) (test xili=371) Hazy Clear COLOR FLUID (BEAKER) (test fpqu=748) Yellow Colorless, Straw RBC FLUID (BEAKER) (test dpqy=646) 2435 /cu mm <=1 ADJUSTED WBC FLUID (BEAKER) (test hhhm=4922) 441 /cu mm <=5 LINING CELLS (BEAKER) (test jagm=9072) 9 /cu mm <=1 NEUTROPHILS FLUID (BEAKER) (test omdf=6414) 16 % LYMPHS FLUID (BEAKER) (test jhrh=221) 10 % MONO/MACROPHAGE FLUID (BEAKER) (test yhsi=550) 74 % EOSINOPHILS FLUID (BEAKER) (test kjsx=345) 0 % BASO FLUID (BEAKER) (test mzpj=937) 0 % CONTAINER BODY FLUID (BEAKER) (test qbdh=4002) EDTA Tube [id number] 11:01:00 Test Item Value Reference Range Comments PROCALCITONIN (BEAKER) (test rkaj=7355) 0.25 ng/mL <0.05 SEPSIS RISK (ng/mL)Low: 0.05-0.50Intermediate: 0.51-2.00High: & gt;=2.01CBC W/PLT COUNT & AUTO [id number] 08:40:00 Test Item Value Reference Range Comments WHITE BLOOD CELL COUNT (BEAKER) (test rrcy=421) 6.3 K/ L 4.0-10.0 RED BLOOD CELL COUNT (BEAKER) (test siqk=703) 2.07 M/ L 4.20-5.80 HEMOGLOBIN (BEAKER) (test mxkj=763) 7.1 GM/DL 13.0-16.8 HEMATOCRIT (BEAKER) (test tcrt=005) 21.9 % 40.0-50.0 MEAN CORPUSCULAR VOLUME (BEAKER) (test cuqi=329) 106.0 fL 82.0-98.0 MEAN CORPUSCULAR HEMOGLOBIN (BEAKER) (test 34.1 pg 27.0-33.0 zdbl=076) MEAN CORPUSCULAR HEMOGLOBIN CONC (BEAKER) (test 32.2 GM/DL 32.0-36.0 donm=091) RED CELL DISTRIBUTION WIDTH (BEAKER) (test 13.1 % 10.3-14.2 baet=209) PLATELET COUNT (BEAKER) (test uzpb=407) 78 K/CU MM 150-430 MEAN PLATELET VOLUME (BEAKER) (test mqbj=691) 6.6 fL 6.5-10.5 NUCLEATED RED BLOOD CELLS (BEAKER) (test 0 /100 WBC 0-0 gtkv=773) NEUTROPHILS RELATIVE PERCENT (BEAKER) (test 73 % vjum=137) LYMPHOCYTES RELATIVE PERCENT (BEAKER) (test 10 % uely=647) MONOCYTES RELATIVE PERCENT (BEAKER) (test 13 % jcxg=669) EOSINOPHILS RELATIVE PERCENT (BEAKER) (test 4 % xozm=184) BASOPHILS RELATIVE PERCENT (BEAKER) (test 0 % sxrh=659) NEUTROPHILS ABSOLUTE COUNT (BEAKER) (test 4.60 K/ L 1.80-8.00 dkpp=693) LYMPHOCYTES ABSOLUTE COUNT (BEAKER) (test 0.64 K/ L 1.48-4.50 mtty=378) MONOCYTES ABSOLUTE COUNT (BEAKER) (test rxsm=944) 0.81 K/ L 0.00-1.30 EOSINOPHILS ABSOLUTE COUNT (BEAKER) (test 0.23 K/ L 0.00-0.50 vikr=373) BASOPHILS ABSOLUTE COUNT (BEAKER) (test tjwa=387) 0.01 K/ L 0.00-0.20 [id number] 06:50:00 Test Item Value Reference Range Comments PHOSPHORUS (BEAKER) (test zxcg=411) 3.0 mg/dL 2.3-4.7 [id number] 06:50:00 Test Item Value Reference Range Comments MAGNESIUM (BEAKER) (test yrym=889) 1.9 mg/dL 1.6-2.6 BASIC METABOLIC [id number] 06:50:00 Test Item Value Reference Range Comments SODIUM (BEAKER) (test 135 meq/L 136-145 zgze=719) POTASSIUM (BEAKER) (test 4.2 meq/L 3.5-5.1 vzuu=482) CHLORIDE (BEAKER) (test 106 meq/L 98-107 glig=547) CO2 (BEAKER) (test 21 meq/L 22-29 oyjj=822) BLOOD UREA NITROGEN 19 mg/dL 7-21 (BEAKER) (test wbej=102) CREATININE (BEAKER) (test 1.62 mg/dL 0.57-1.25 yfle=147) GLUCOSE RANDOM (BEAKER) 98 mg/dL 70-105 (test krik=989) CALCIUM (BEAKER) (test 8.6 mg/dL 8.4-10.2 zhop=575) EGFR (BEAKER) (test 45 mL/min/1.73 sq m ESTIMATED GFR IS NOT sjxr=6054) ACCURATE CREATININE CLEARANCE IN PREDICTING GLOMERULAR FILTRATION RATE. ESTIMATED GFR IS NOT APPLICABLE FOR DIALYSIS PATIENTS. Specimen moderately ictericHEPATIC FUNCTION [id number] 06:50:00 Test Item Value Reference Range Comments TOTAL PROTEIN (BEAKER) (test eznu=060) 6.3 gm/dL 6.0-8.3 ALBUMIN (BEAKER) (test jate=3280) 3.7 g/dL 3.5-5.0 BILIRUBIN TOTAL (BEAKER) (test pbcf=111) 6.2 mg/dL 0.2-1.2 BILIRUBIN DIRECT (BEAKER) (test zdjn=793) 2.8 mg/dL 0.1-0.5 ALKALINE PHOSPHATASE (BEAKER) (test pukt=650) 54 U/L 40-150 AST (SGOT) (BEAKER) (test fdws=467) 29 U/L 5-34 ALT (SGPT) (BEAKER) (test uymu=927) 8 U/L 6-55 Specimen moderately ictericCALCIUM, [id number] 06:48:00 Test Item Value Reference Range Comments CALCIUM IONIZED (BEAKER) (test xpvl=255) 1.12 mmol/L 1.12-1.27 PH, BLOOD (BEAKER) (test kplp=3374) 7.33 PROTHROMBIN [id number] 06:24:00 Test Item Value Reference Range Comments PROTIME (BEAKER) (test izfn=727) 25.4 seconds 11.7-14.7 INR (BEAKER) (test nput=934) 2.3 <=5.9 RECOMMENDED COUMADIN/WARFARIN INR THERAPY RANGESSTANDARD DOSE: 2.0 - 3.0 Includes: PROPHYLAXIS forvenous thrombosis, systemic embolization; TREATMENT for venous thrombosis and/or pulmonary embolus.HIGH RISK: Target INR is 2.5-3.5 for patients with mechanical heart valves.[id number] 11:17:00 Test Item Value Reference Range Comments FIBRINOGEN LEVEL (BEAKER) (test dxyk=410) 115 mg/dl 225-434 CALCIUM, [id number] 06:04:00 Test Item Value Reference Range Comments CALCIUM IONIZED (BEAKER) (test xuzk=751) 1.08 mmol/L 1.12-1.27 PH, BLOOD (BEAKER) (test rmji=7665) 7.41 CBC W/PLT COUNT & AUTO [id number] 05:28:00 Test Item Value Reference Range Comments WHITE BLOOD CELL COUNT (BEAKER) (test hmwf=676) 5.6 K/ L 4.0-10.0 RED BLOOD CELL COUNT (BEAKER) (test wkxj=085) 2.00 M/ L 4.20-5.80 HEMOGLOBIN (BEAKER) (test ikmb=818) 7.2 GM/DL 13.0-16.8 HEMATOCRIT (BEAKER) (test skla=751) 21.2 % 40.0-50.0 MEAN CORPUSCULAR VOLUME (BEAKER) (test yvtb=936) 106.0 fL 82.0-98.0 MEAN CORPUSCULAR HEMOGLOBIN (BEAKER) (test 36.0 pg 27.0-33.0 bjng=276) MEAN CORPUSCULAR HEMOGLOBIN CONC (BEAKER) (test 34.0 GM/DL 32.0-36.0 npyz=109) RED CELL DISTRIBUTION WIDTH (BEAKER) (test 13.9 % 10.3-14.2 zqhu=638) PLATELET COUNT (BEAKER) (test zins=180) 74 K/CU MM 150-430 MEAN PLATELET VOLUME (BEAKER) (test iqlc=375) 6.6 fL 6.5-10.5 NUCLEATED RED BLOOD CELLS (BEAKER) (test 0 /100 WBC 0-0 eilu=752) NEUTROPHILS RELATIVE PERCENT (BEAKER) (test 66 % rrgq=286) LYMPHOCYTES RELATIVE PERCENT (BEAKER) (test 14 % hrni=445) MONOCYTES RELATIVE PERCENT (BEAKER) (test 13 % tkwn=706) EOSINOPHILS RELATIVE PERCENT (BEAKER) (test 7 % xnug=128) BASOPHILS RELATIVE PERCENT (BEAKER) (test 0 % kcxr=855) NEUTROPHILS ABSOLUTE COUNT (BEAKER) (test 3.67 K/ L 1.80-8.00 xqnj=646) LYMPHOCYTES ABSOLUTE COUNT (BEAKER) (test 0.80 K/ L 1.48-4.50 nosz=210) MONOCYTES ABSOLUTE COUNT (BEAKER) (test oehx=348) 0.69 K/ L 0.00-1.30 EOSINOPHILS ABSOLUTE COUNT (BEAKER) (test 0.38 K/ L 0.00-0.50 eilz=311) BASOPHILS ABSOLUTE COUNT (BEAKER) (test iqtl=710) 0.02 K/ L 0.00-0.20 0.00PROTHROMBIN [id number] 05:11:00 Test Item Value Reference Range Comments PROTIME (BEAKER) (test rhod=772) 25.9 seconds 11.7-14.7 INR (BEAKER) (test xlas=344) 2.4 <=5.9 RECOMMENDED COUMADIN/WARFARIN INR THERAPY RANGESSTANDARD DOSE: 2.0 - 3.0 Includes: PROPHYLAXIS forvenous thrombosis, systemic embolization; TREATMENT for venous thrombosis and/or pulmonary embolus.HIGH RISK: Target INR is 2.5-3.5 for patients with mechanical heart valves.[id number] 05:03:00 Test Item Value Reference Range Comments PHOSPHORUS (BEAKER) (test rjlv=288) 3.5 mg/dL 2.3-4.7 [id number] 05:03:00 Test Item Value Reference Range Comments MAGNESIUM (BEAKER) (test kfiw=745) 1.7 mg/dL 1.6-2.6 BASIC METABOLIC [id number] 05:03:00 Test Item Value Reference Range Comments SODIUM (BEAKER) (test 135 meq/L 136-145 fadj=100) POTASSIUM (BEAKER) (test 4.0 meq/L 3.5-5.1 sodz=468) CHLORIDE (BEAKER) (test 107 meq/L 98-107 gylc=668) CO2 (BEAKER) (test 20 meq/L 22-29 mpzi=605) BLOOD UREA NITROGEN 22 mg/dL 7-21 (BEAKER) (test hhxr=425) CREATININE (BEAKER) (test 1.77 mg/dL 0.57-1.25 rbtw=322) GLUCOSE RANDOM (BEAKER) 83 mg/dL 70-105 (test lnvk=214) CALCIUM (BEAKER) (test 8.3 mg/dL 8.4-10.2 gttz=587) EGFR (BEAKER) (test 41 mL/min/1.73 sq m ESTIMATED GFR IS NOT exsb=1388) ACCURATE CREATININE CLEARANCE IN PREDICTING GLOMERULAR FILTRATION RATE. ESTIMATED GFR IS NOT APPLICABLE FOR DIALYSIS PATIENTS. Specimen moderately ictericHEPATIC FUNCTION [id number] 05:03:00 Test Item Value Reference Range Comments TOTAL PROTEIN (BEAKER) (test hjzo=129) 6.2 gm/dL 6.0-8.3 ALBUMIN (BEAKER) (test oevs=1111) 3.7 g/dL 3.5-5.0 BILIRUBIN TOTAL (BEAKER) (test ukhq=482) 6.0 mg/dL 0.2-1.2 BILIRUBIN DIRECT (BEAKER) (test huqy=871) 2.6 mg/dL 0.1-0.5 ALKALINE PHOSPHATASE (BEAKER) (test bzlo=792) 48 U/L 40-150 AST (SGOT) (BEAKER) (test bsdr=486) 26 U/L 5-34 ALT (SGPT) (BEAKER) (test jybw=182) 8 U/L 6-55 Specimen moderately ictericURINE [id number] 14:42:00 Test Item Value Reference Range Comments CULTURE (BEAKER) (test zibu=6245) No growth ANTI-NUCLEAR ANTIBODY (CHERYL)[id number] 13:32:00 Test Item Value Reference Range Comments ANTI-NUCLEAR ANTIBODY (CHERYL) (BEAKER) (test Negative Negative hmjl=647) PLATELET [id number] 06:30:00 Test Item Value Reference Range Comments PLATELET COUNT (BEAKER) (test cwjl=099) 104 K/CU MM 150-430 [id number] 06:22:00 Test Item Value Reference Range Comments FIBRINOGEN LEVEL (BEAKER) (test tnjo=453) 106 mg/dl 225-434 [id number] 06:16:00 Test Item Value Reference Range Comments PARTIAL THROMBOPLASTIN TIME (BEAKER) (test 48.1 seconds 22.5-36.0 rhmr=885) PROTHROMBIN [id number] 06:15:00 Test Item Value Reference Range Comments PROTIME (BEAKER) (test sbnx=889) 23.5 seconds 11.7-14.7 INR (BEAKER) (test oezd=671) 2.1 <=5.9 RECOMMENDED COUMADIN/WARFARIN INR THERAPY RANGESSTANDARD DOSE: 2.0 - 3.0 Includes: PROPHYLAXIS forvenous thrombosis, systemic embolization; TREATMENT for venous thrombosis and/or pulmonary embolus.HIGH RISK: Target INR is 2.5-3.5 for patients with mechanical heart valves.[id number] 06:12:00 Test Item Value Reference Range Comments MAGNESIUM (BEAKER) (test 2.0 mg/dL 1.6-2.6 Specimen slightly hemolyzed uljg=024) [id number] 06:12:00 Test Item Value Reference Range Comments PHOSPHORUS (BEAKER) (test 5.0 mg/dL 2.3-4.7 Specimen slightly hemolyzed wewz=515) BASIC METABOLIC [id number] 06:12:00 Test Item Value Reference Range Comments SODIUM (BEAKER) (test 135 meq/L 136-145 qnmn=257) POTASSIUM (BEAKER) (test 4.7 meq/L 3.5-5.1 Specimen slightly goys=630) hemolyzed CHLORIDE (BEAKER) (test 107 meq/L 98-107 aoxq=481) CO2 (BEAKER) (test 20 meq/L 22-29 lhcw=066) BLOOD UREA NITROGEN 18 mg/dL 7-21 (BEAKER) (test avas=479) CREATININE (BEAKER) (test 1.74 mg/dL 0.57-1.25 Specimen slightly aazf=505) hemolyzed GLUCOSE RANDOM (BEAKER) 76 mg/dL 70-105 (test tcki=288) CALCIUM (BEAKER) (test 8.1 mg/dL 8.4-10.2 gecc=489) EGFR (BEAKER) (test 42 mL/min/1.73 sq m ESTIMATED GFR IS NOT qelf=1399) ACCURATE CREATININE CLEARANCE IN PREDICTING GLOMERULAR FILTRATION RATE. ESTIMATED GFR IS NOT APPLICABLE FOR DIALYSIS PATIENTS. Specimen moderately ictericHEPATIC FUNCTION [id number] 06:12:00 Test Item Value Reference Range Comments TOTAL PROTEIN (BEAKER) (test 6.6 gm/dL 6.0-8.3 Specimen slightly hemolyzed llih=647) ALBUMIN (BEAKER) (test 3.7 g/dL 3.5-5.0 Specimen slightly hemolyzed pzjy=5045) BILIRUBIN TOTAL (BEAKER) (test 5.7 mg/dL 0.2-1.2 Specimen slightly hemolyzed sbct=998) BILIRUBIN DIRECT (BEAKER) (test 2.7 mg/dL 0.1-0.5 Specimen slightly hemolyzed ppxf=876) ALKALINE PHOSPHATASE (BEAKER) 56 U/L 40-150 (test hzpp=049) AST (SGOT) (BEAKER) (test 29 U/L 5-34 Specimen slightly hemolyzed lubm=225) ALT (SGPT) (BEAKER) (test 7 U/L 6-55 Specimen slightly hemolyzed qqwk=290) Specimen moderately ictericLACTIC ACID, VENOUS, WHOLE [id number] 06:04:00 Test Item Value Reference Range Comments LACTATE BLOOD VENOUS (2) (BEAKER) (test 1.0 mmol/L 0.5-2.2 otoa=4717) Effective 02/28/2016: Units/Reference Range ChangeNew: 0.5-2.2 mmol/L Previous: 5 -20 mg/dLSpecimen moderately ictericCALCIUM, [id number] 05:56:00 Test Item Value Reference Range Comments CALCIUM IONIZED (BEAKER) (test tspj=621) 1.00 mmol/L 1.12-1.27 PH, BLOOD (BEAKER) (test kdlx=1235) 7.34 [id number] 21:34:00 Test Item Value Reference Range Comments FIBRINOGEN LEVEL (BEAKER) (test wgwv=461) 105 mg/dl 225-434 PLATELET [id number] 20:52:00 Test Item Value Reference Range Comments PLATELET COUNT (BEAKER) (test eelr=593) 77 K/CU MM 150-430 PT/[id number] 20:51:00 Test Item Value Reference Range Comments PROTIME (BEAKER) (test szwb=612) 21.1 seconds 11.7-14.7 INR (BEAKER) (test hxjv=837) 1.8 <=5.9 PARTIAL THROMBOPLASTIN TIME (BEAKER) (test 47.3 seconds 22.5-36.0 ugah=805) RECOMMENDED COUMADIN/WARFARIN INR THERAPY RANGESSTANDARD DOSE: 2.0 - 3.0 Includes: PROPHYLAXIS forvenous thrombosis, systemic embolization; TREATMENT for venous thrombosis and/or pulmonary embolus.HIGH RISK: Target INR is 2.5-3.5 for patients with mechanical heart valves.[id number] 20:51:00 Test Item Value Reference Range Comments PARTIAL THROMBOPLASTIN TIME (BEAKER) (test 47.3 seconds 22.5-36.0 uwsl=261) PROTHROMBIN TIME/[id number] 20:50:00 Test Item Value Reference Range Comments PROTIME (BEAKER) (test eumk=631) 21.1 seconds 11.7-14.7 INR (BEAKER) (test spqn=683) 1.8 <=5.9 RECOMMENDED COUMADIN/WARFARIN INR THERAPY RANGESSTANDARD DOSE: 2.0 - 3.0 Includes: PROPHYLAXIS forvenous thrombosis, systemic embolization; TREATMENT for venous thrombosis and/or pulmonary embolus.HIGH RISK: Target INR is 2.5-3.5 for patients with mechanical heart valves.[id number] 19:30:00 Test Item Value Reference Range Comments PARTIAL THROMBOPLASTIN TIME (BEAKER) (test 45.1 seconds 22.5-36.0 syvm=052) PROTHROMBIN TIME/[id number] 19:29:00 Test Item Value Reference Range Comments PROTIME (BEAKER) (test qcwp=018) 28.2 seconds 11.7-14.7 INR (BEAKER) (test ppma=350) 2.6 <=5.9 RECOMMENDED COUMADIN/WARFARIN INR THERAPY RANGESSTANDARD DOSE: 2.0 - 3.0 Includes: PROPHYLAXIS forvenous thrombosis, systemic embolization; TREATMENT for venous thrombosis and/or pulmonary embolus.HIGH RISK: Target INR is 2.5-3.5 for patients with mechanical heart valves.BODY FLUID CELL COUNT WITH [id number] 18:53:00 Test Item Value Reference Range Comments APPEARANCE FLUID (BEAKER) (test gddo=737) Hazy Clear COLOR FLUID (BEAKER) (test nsdc=088) Yellow Colorless, Straw RBC FLUID (BEAKER) (test kjln=442) 900 /cu mm <=1 ADJUSTED WBC FLUID (BEAKER) (test oixy=6316) 306 /cu mm <=5 LINING CELLS (BEAKER) (test sewq=2595) 64 /cu mm <=1 NEUTROPHILS FLUID (BEAKER) (test rsws=0459) 4 % LYMPHS FLUID (BEAKER) (test vfyu=902) 18 % MONO/MACROPHAGE FLUID (BEAKER) (test zegd=824) 78 % EOSINOPHILS FLUID (BEAKER) (test tuax=660) 0 % BASO FLUID (BEAKER) (test nsfv=167) 0 % CONTAINER BODY FLUID (BEAKER) (test hhwz=7765) EDTA Tube [id number] 16:56:00 Test Item Value Reference Range Comments AMYLASE (BEAKER) (test jjxn=617) 37 U/L 25-125 Specimen moderately ictericCOMPREHENSIVE METABOLIC [id number] 16:56:00 Test Item Value Reference Range Comments TOTAL PROTEIN (BEAKER) 6.1 gm/dL 6.0-8.3 (test mvqz=933) ALBUMIN (BEAKER) (test 3.2 g/dL 3.5-5.0 ndvs=3579) ALKALINE PHOSPHATASE 67 U/L 40-150 (BEAKER) (test hbjp=905) BILIRUBIN TOTAL (BEAKER) 5.7 mg/dL 0.2-1.2 (test lhhn=732) SODIUM (BEAKER) (test 134 meq/L 136-145 rngo=649) POTASSIUM (BEAKER) (test 3.8 meq/L 3.5-5.1 caed=413) CHLORIDE (BEAKER) (test 106 meq/L 98-107 mmfj=660) CO2 (BEAKER) (test 19 meq/L 22-29 zrql=244) BLOOD UREA NITROGEN 18 mg/dL 7-21 (BEAKER) (test vnqy=173) CREATININE (BEAKER) (test 1.52 mg/dL 0.57-1.25 izoy=597) GLUCOSE RANDOM (BEAKER) 112 mg/dL 70-105 (test ybrd=257) CALCIUM (BEAKER) (test 8.3 mg/dL 8.4-10.2 gyam=469) AST (SGOT) (BEAKER) (test 28 U/L 5-34 jfpd=002) ALT (SGPT) (BEAKER) (test 10 U/L 6-55 bhdu=390) EGFR (BEAKER) (test 49 mL/min/1.73 sq m ESTIMATED GFR IS NOT bqqd=0240) ACCURATE CREATININE CLEARANCE IN PREDICTING GLOMERULAR FILTRATION RATE. ESTIMATED GFR IS NOT APPLICABLE FOR DIALYSIS PATIENTS. Specimen moderately [id number] 16:56:00 Test Item Value Reference Range Comments LIPASE (BEAKER) (test zugk=415) 52 U/L 8-78 Specimen moderately ictericCBC W/PLT COUNT & AUTO [id number] 16: 27:00 Test Item Value Reference Range Comments WHITE BLOOD CELL COUNT (BEAKER) (test egmq=311) 3.7 K/ L 4.0-10.0 RED BLOOD CELL COUNT (BEAKER) (test hmhy=757) 2.16 M/ L 4.20-5.80 HEMOGLOBIN (BEAKER) (test adsi=783) 7.8 GM/DL 13.0-16.8 HEMATOCRIT (BEAKER) (test dekx=849) 23.1 % 40.0-50.0 MEAN CORPUSCULAR VOLUME (BEAKER) (test eexr=834) 107.0 fL 82.0-98.0 MEAN CORPUSCULAR HEMOGLOBIN (BEAKER) (test 36.0 pg 27.0-33.0 qqek=638) MEAN CORPUSCULAR HEMOGLOBIN CONC (BEAKER) (test 33.6 GM/DL 32.0-36.0 ejit=061) RED CELL DISTRIBUTION WIDTH (BEAKER) (test 13.9 % 10.3-14.2 nztr=066) PLATELET COUNT (BEAKER) (test aouu=053) 78 K/CU MM 150-430 MEAN PLATELET VOLUME (BEAKER) (test cott=240) 6.2 fL 6.5-10.5 NUCLEATED RED BLOOD CELLS (BEAKER) (test 0 /100 WBC 0-0 tvez=302) NEUTROPHILS RELATIVE PERCENT (BEAKER) (test 50 % jhzn=801) LYMPHOCYTES RELATIVE PERCENT (BEAKER) (test 25 % omuy=228) MONOCYTES RELATIVE PERCENT (BEAKER) (test 19 % qsaj=941) EOSINOPHILS RELATIVE PERCENT (BEAKER) (test 6 % nlpc=080) BASOPHILS RELATIVE PERCENT (BEAKER) (test 1 % mfxr=368) NEUTROPHILS ABSOLUTE COUNT (BEAKER) (test 1.82 K/ L 1.80-8.00 xhvf=467) LYMPHOCYTES ABSOLUTE COUNT (BEAKER) (test 0.91 K/ L 1.48-4.50 lzfu=888) MONOCYTES ABSOLUTE COUNT (BEAKER) (test uuew=351) 0.69 K/ L 0.00-1.30 EOSINOPHILS ABSOLUTE COUNT (BEAKER) (test 0.21 K/ L 0.00-0.50 pash=364) BASOPHILS ABSOLUTE COUNT (BEAKER) (test zrex=460) 0.02 K/ L 0.00-0.20 0.00HEPATIC FUNCTION [id number] 08:34:00 Test Item Value Reference Range Comments TOTAL PROTEIN (BEAKER) (test lvic=195) 5.9 gm/dL 6.0-8.3 ALBUMIN (BEAKER) (test qsgo=1195) 3.2 g/dL 3.5-5.0 BILIRUBIN TOTAL (BEAKER) (test zxwm=793) 5.4 mg/dL 0.2-1.2 BILIRUBIN DIRECT (BEAKER) (test xmug=103) 2.5 mg/dL 0.1-0.5 ALKALINE PHOSPHATASE (BEAKER) (test page=887) 60 U/L 40-150 AST (SGOT) (BEAKER) (test wdlb=805) 28 U/L 5-34 ALT (SGPT) (BEAKER) (test zqwl=693) 10 U/L 6-55 Specimen moderately [id number] 08:16:00 Test Item Value Reference Range Comments PHOSPHORUS (BEAKER) (test iofw=465) 3.0 mg/dL 2.3-4.7 [id number] 08:16:00 Test Item Value Reference Range Comments MAGNESIUM (BEAKER) (test bjca=616) 1.6 mg/dL 1.6-2.6 BASIC METABOLIC [id number] 08:16:00 Test Item Value Reference Range Comments SODIUM (BEAKER) (test 133 meq/L 136-145 hnae=370) POTASSIUM (BEAKER) (test 3.6 meq/L 3.5-5.1 dsni=394) CHLORIDE (BEAKER) (test 105 meq/L 98-107 ypfb=954) CO2 (BEAKER) (test 20 meq/L 22-29 cqjx=385) BLOOD UREA NITROGEN 18 mg/dL 7-21 (BEAKER) (test fqti=542) CREATININE (BEAKER) (test 1.54 mg/dL 0.57-1.25 armz=040) GLUCOSE RANDOM (BEAKER) 70 mg/dL 70-105 (test dudu=009) CALCIUM (BEAKER) (test 8.2 mg/dL 8.4-10.2 spih=685) EGFR (BEAKER) (test 48 mL/min/1.73 sq m ESTIMATED GFR IS NOT ubnz=5394) ACCURATE CREATININE CLEARANCE IN PREDICTING GLOMERULAR FILTRATION RATE. ESTIMATED GFR IS NOT APPLICABLE FOR DIALYSIS PATIENTS. Specimen moderately ictericCBC W/PLT COUNT & AUTO [id number] 08: 06:00 Test Item Value Reference Range Comments WHITE BLOOD CELL COUNT (BEAKER) (test upqo=275) 3.4 K/ L 4.0-10.0 RED BLOOD CELL COUNT (BEAKER) (test iqkt=043) 2.03 M/ L 4.20-5.80 HEMOGLOBIN (BEAKER) (test thne=059) 7.3 GM/DL 13.0-16.8 HEMATOCRIT (BEAKER) (test kzmp=424) 21.6 % 40.0-50.0 MEAN CORPUSCULAR VOLUME (BEAKER) (test vccd=461) 106.0 fL 82.0-98.0 MEAN CORPUSCULAR HEMOGLOBIN (BEAKER) (test 35.8 pg 27.0-33.0 kjfz=237) MEAN CORPUSCULAR HEMOGLOBIN CONC (BEAKER) (test 33.7 GM/DL 32.0-36.0 yrbv=366) RED CELL DISTRIBUTION WIDTH (BEAKER) (test 13.5 % 10.3-14.2 utcm=468) PLATELET COUNT (BEAKER) (test elea=481) 82 K/CU MM 150-430 MEAN PLATELET VOLUME (BEAKER) (test oeek=858) 6.7 fL 6.5-10.5 NUCLEATED RED BLOOD CELLS (BEAKER) (test 0 /100 WBC 0-0 bfiz=180) NEUTROPHILS RELATIVE PERCENT (BEAKER) (test 50 % wzdp=561) LYMPHOCYTES RELATIVE PERCENT (BEAKER) (test 25 % iorp=162) MONOCYTES RELATIVE PERCENT (BEAKER) (test 19 % ibza=231) EOSINOPHILS RELATIVE PERCENT (BEAKER) (test 5 % ijzg=685) BASOPHILS RELATIVE PERCENT (BEAKER) (test 1 % bfpx=171) NEUTROPHILS ABSOLUTE COUNT (BEAKER) (test 1.69 K/ L 1.80-8.00 ukzq=695) LYMPHOCYTES ABSOLUTE COUNT (BEAKER) (test 0.83 K/ L 1.48-4.50 osdl=670) MONOCYTES ABSOLUTE COUNT (BEAKER) (test snmp=355) 0.65 K/ L 0.00-1.30 EOSINOPHILS ABSOLUTE COUNT (BEAKER) (test 0.17 K/ L 0.00-0.50 gjmr=012) BASOPHILS ABSOLUTE COUNT (BEAKER) (test bpri=073) 0.04 K/ L 0.00-0.20 0.00PROTHROMBIN [id number] 08:01:00 Test Item Value Reference Range Comments PROTIME (BEAKER) (test wrvf=413) 27.6 seconds 11.7-14.7 INR (BEAKER) (test wmjy=108) 2.6 <=5.9 RECOMMENDED COUMADIN/WARFARIN INR THERAPY RANGESSTANDARD DOSE: 2.0 - 3.0 Includes: PROPHYLAXIS forvenous thrombosis, systemic embolization; TREATMENT for venous thrombosis and/or pulmonary embolus.HIGH RISK: Target INR is 2.5-3.5 for patients with mechanical heart valves.CALCIUM, [id number] 07:58:00 Test Item Value Reference Range Comments CALCIUM IONIZED (BEAKER) (test kbcj=257) 1.00 mmol/L 1.12-1.27 PH, BLOOD (BEAKER) (test cdgc=6789) 7.53 URINALYSIS W/ [id number] 18:42:00 Test Item Value Reference Range Comments COLOR (BEAKER) (test hbuo=771) Yellow CLARITY (BEAKER) (test obit=129) Clear SPECIFIC GRAVITY UA (BEAKER) (test 1.009 1.001-1.035 ilgx=278) PH UA (BEAKER) (test udwt=659) 7.5 5.0-8.0 PROTEIN UA (BEAKER) (test zjot=503) Negative Negative GLUCOSE UA (BEAKER) (test ytwx=795) Negative Negative KETONES UA (BEAKER) (test ksff=321) Negative Negative BILIRUBIN UA (BEAKER) (test eqwx=812) Negative Negative BLOOD UA (BEAKER) (test aygl=386) Negative Negative NITRITE UA (BEAKER) (test ljwq=647) Negative Negative LEUKOCYTE ESTERASE UA (BEAKER) (test Negative Negative fbdx=794) UROBILINOGEN UA (BEAKER) (test lbuk=165) 3.0 mg/dL 0.2-1.0 RBC UA (BEAKER) (test zoyl=742) 6 /HPF WBC UA (BEAKER) (test cehv=440) 1 /HPF SOURCE(BEAKER) (test egsf=1643) Urine, Clean Catch PROTHROMBIN TIME/[id number] 15:13:00 Test Item Value Reference Range Comments PROTIME (BEAKER) (test odir=828) 31.4 seconds 11.7-14.7 INR (BEAKER) (test hrpt=649) 3.0 <=5.9 RECOMMENDED COUMADIN/WARFARIN INR THERAPY RANGESSTANDARD DOSE: 2.0 - 3.0 Includes: PROPHYLAXIS forvenous thrombosis, systemic embolization; TREATMENT for venous thrombosis and/or pulmonary embolus.HIGH RISK: Target INR is 2.5-3.5 for patients with mechanical heart valves.Draw after vitamin K administrationCBC W/PLT COUNT & AUTO [id number] 07:02:00 Test Item Value Reference Range Comments WHITE BLOOD CELL COUNT (BEAKER) (test ibcn=790) 3.0 K/ L 4.0-10.0 RED BLOOD CELL COUNT (BEAKER) (test ptuc=969) 2.21 M/ L 4.20-5.80 HEMOGLOBIN (BEAKER) (test vywa=410) 7.5 GM/DL 13.0-16.8 HEMATOCRIT (BEAKER) (test eeef=532) 23.5 % 40.0-50.0 MEAN CORPUSCULAR VOLUME (BEAKER) (test mtbm=773) 106.0 fL 82.0-98.0 MEAN CORPUSCULAR HEMOGLOBIN (BEAKER) (test 34.0 pg 27.0-33.0 uxti=792) MEAN CORPUSCULAR HEMOGLOBIN CONC (BEAKER) (test 32.0 GM/DL 32.0-36.0 jams=688) RED CELL DISTRIBUTION WIDTH (BEAKER) (test 13.0 % 10.3-14.2 egqi=188) PLATELET COUNT (BEAKER) (test zzgk=133) 81 K/CU MM 150-430 MEAN PLATELET VOLUME (BEAKER) (test vtxd=231) 6.3 fL 6.5-10.5 NUCLEATED RED BLOOD CELLS (BEAKER) (test 0 /100 WBC 0-0 qkkl=184) NEUTROPHILS RELATIVE PERCENT (BEAKER) (test 52 % oeos=987) LYMPHOCYTES RELATIVE PERCENT (BEAKER) (test 24 % vcet=525) MONOCYTES RELATIVE PERCENT (BEAKER) (test 20 % nnqu=624) EOSINOPHILS RELATIVE PERCENT (BEAKER) (test 3 % zyny=773) BASOPHILS RELATIVE PERCENT (BEAKER) (test 1 % uipq=795) NEUTROPHILS ABSOLUTE COUNT (BEAKER) (test 1.53 K/ L 1.80-8.00 ddfi=627) LYMPHOCYTES ABSOLUTE COUNT (BEAKER) (test 0.71 K/ L 1.48-4.50 nszy=025) MONOCYTES ABSOLUTE COUNT (BEAKER) (test cypg=056) 0.60 K/ L 0.00-1.30 EOSINOPHILS ABSOLUTE COUNT (BEAKER) (test 0.10 K/ L 0.00-0.50 wgcn=769) BASOPHILS ABSOLUTE COUNT (BEAKER) (test qrsw=338) 0.03 K/ L 0.00-0.20 0.00BASIC METABOLIC [id number] 06:29:00 Test Item Value Reference Range Comments SODIUM (BEAKER) (test 135 meq/L 136-145 ptgq=024) POTASSIUM (BEAKER) (test 4.0 meq/L 3.5-5.1 qntp=301) CHLORIDE (BEAKER) (test 106 meq/L 98-107 jxmr=938) CO2 (BEAKER) (test 22 meq/L 22-29 huwa=963) BLOOD UREA NITROGEN 17 mg/dL 7-21 (BEAKER) (test scbh=011) CREATININE (BEAKER) (test 1.46 mg/dL 0.57-1.25 gvgc=094) GLUCOSE RANDOM (BEAKER) 75 mg/dL 70-105 (test neox=778) CALCIUM (BEAKER) (test 8.0 mg/dL 8.4-10.2 xuxq=196) EGFR (BEAKER) (test 51 mL/min/1.73 sq m ESTIMATED GFR IS NOT jjas=3610) ACCURATE CREATININE CLEARANCE IN PREDICTING GLOMERULAR FILTRATION RATE. ESTIMATED GFR IS NOT APPLICABLE FOR DIALYSIS PATIENTS. Specimen moderately ictericHEPATIC FUNCTION [id number] 06:29:00 Test Item Value Reference Range Comments TOTAL PROTEIN (BEAKER) (test ufde=552) 5.9 gm/dL 6.0-8.3 ALBUMIN (BEAKER) (test qlav=0402) 3.0 g/dL 3.5-5.0 BILIRUBIN TOTAL (BEAKER) (test zhsr=264) 5.4 mg/dL 0.2-1.2 BILIRUBIN DIRECT (BEAKER) (test iasb=567) 2.7 mg/dL 0.1-0.5 ALKALINE PHOSPHATASE (BEAKER) (test engw=433) 65 U/L 40-150 AST (SGOT) (BEAKER) (test bbxb=190) 27 U/L 5-34 ALT (SGPT) (BEAKER) (test vrgo=045) 7 U/L 6-55 Specimen moderately ictericPROTHROMBIN [id number] 06:23:00 Test Item Value Reference Range Comments PROTIME (BEAKER) (test ibhz=193) 31.2 seconds 11.7-14.7 INR (BEAKER) (test eldc=646) 3.0 <=5.9 RECOMMENDED COUMADIN/WARFARIN INR THERAPY RANGESSTANDARD DOSE: 2.0 - 3.0 Includes: PROPHYLAXIS forvenous thrombosis, systemic embolization; TREATMENT for venous thrombosis and/or pulmonary embolus.HIGH RISK: Target INR is 2.5-3.5 for patients with mechanical heart valves.CBC W/PLT COUNT & AUTO [id number] 06:26:00 Test Item Value Reference Range Comments WHITE BLOOD CELL COUNT (BEAKER) (test qlkb=681) 3.0 K/ L 4.0-10.0 RED BLOOD CELL COUNT (BEAKER) (test rpiw=599) 2.16 M/ L 4.20-5.80 HEMOGLOBIN (BEAKER) (test jcsh=005) 7.4 GM/DL 13.0-16.8 HEMATOCRIT (BEAKER) (test oxpy=730) 23.1 % 40.0-50.0 MEAN CORPUSCULAR VOLUME (BEAKER) (test empo=225) 107.0 fL 82.0-98.0 MEAN CORPUSCULAR HEMOGLOBIN (BEAKER) (test 34.4 pg 27.0-33.0 imun=228) MEAN CORPUSCULAR HEMOGLOBIN CONC (BEAKER) (test 32.1 GM/DL 32.0-36.0 ualj=819) RED CELL DISTRIBUTION WIDTH (BEAKER) (test 13.1 % 10.3-14.2 mmfc=921) PLATELET COUNT (BEAKER) (test ehxg=978) 72 K/CU MM 150-430 MEAN PLATELET VOLUME (BEAKER) (test xvah=699) 6.1 fL 6.5-10.5 NUCLEATED RED BLOOD CELLS (BEAKER) (test 0 /100 WBC 0-0 xjye=009) NEUTROPHILS RELATIVE PERCENT (BEAKER) (test 58 % cddl=801) LYMPHOCYTES RELATIVE PERCENT (BEAKER) (test 21 % wtgw=273) MONOCYTES RELATIVE PERCENT (BEAKER) (test 15 % ezih=735) EOSINOPHILS RELATIVE PERCENT (BEAKER) (test 4 % edel=049) BASOPHILS RELATIVE PERCENT (BEAKER) (test 1 % xwkc=102) NEUTROPHILS ABSOLUTE COUNT (BEAKER) (test 1.73 K/ L 1.80-8.00 wwik=995) LYMPHOCYTES ABSOLUTE COUNT (BEAKER) (test 0.64 K/ L 1.48-4.50 qage=089) MONOCYTES ABSOLUTE COUNT (BEAKER) (test eibk=674) 0.45 K/ L 0.00-1.30 EOSINOPHILS ABSOLUTE COUNT (BEAKER) (test 0.13 K/ L 0.00-0.50 qacr=975) BASOPHILS ABSOLUTE COUNT (BEAKER) (test zonh=255) 0.02 K/ L 0.00-0.20 0.00BASIC METABOLIC [id number] 06:24:00 Test Item Value Reference Range Comments SODIUM (BEAKER) (test 134 meq/L 136-145 ezvd=113) POTASSIUM (BEAKER) (test 3.7 meq/L 3.5-5.1 ehli=716) CHLORIDE (BEAKER) (test 105 meq/L 98-107 dttx=266) CO2 (BEAKER) (test 21 meq/L 22-29 uxta=332) BLOOD UREA NITROGEN 18 mg/dL 7-21 (BEAKER) (test wxuh=332) CREATININE (BEAKER) (test 1.53 mg/dL 0.57-1.25 uerv=213) GLUCOSE RANDOM (BEAKER) 103 mg/dL 70-105 (test dfkg=426) CALCIUM (BEAKER) (test 7.6 mg/dL 8.4-10.2 rgoz=988) EGFR (BEAKER) (test 48 mL/min/1.73 sq m ESTIMATED GFR IS NOT tmzx=1581) ACCURATE CREATININE CLEARANCE IN PREDICTING GLOMERULAR FILTRATION RATE. ESTIMATED GFR IS NOT APPLICABLE FOR DIALYSIS PATIENTS. Specimen moderately ictericHEPATIC FUNCTION [id number] 06:19:00 Test Item Value Reference Range Comments TOTAL PROTEIN (BEAKER) (test cgsc=642) 5.6 gm/dL 6.0-8.3 ALBUMIN (BEAKER) (test yqer=7367) 2.4 g/dL 3.5-5.0 BILIRUBIN TOTAL (BEAKER) (test umqb=649) 4.8 mg/dL 0.2-1.2 BILIRUBIN DIRECT (BEAKER) (test hepj=942) 2.6 mg/dL 0.1-0.5 ALKALINE PHOSPHATASE (BEAKER) (test gbrc=364) 70 U/L 40-150 AST (SGOT) (BEAKER) (test nagc=325) 28 U/L 5-34 ALT (SGPT) (BEAKER) (test dqlv=920) 11 U/L 6-55 Specimen moderately ictericPROTHROMBIN [id number] 06:00:00 Test Item Value Reference Range Comments PROTIME (BEAKER) (test ppqn=251) 36.7 seconds 11.7-14.7 INR (BEAKER) (test lxyb=610) 3.7 <=5.9 RECOMMENDED COUMADIN/WARFARIN INR THERAPY RANGESSTANDARD DOSE: 2.0 - 3.0 Includes: PROPHYLAXIS forvenous thrombosis, systemic embolization; TREATMENT for venous thrombosis and/or pulmonary embolus.HIGH RISK: Target INR is 2.5-3.5 for patients with mechanical heart valves.BODY FLUID CULTURE + GRAM [id number] 00:51:00 Test Item Value Reference Range Comments CULTURE (BEAKER) (test mkek=1088) No growth GRAM STAIN RESULT (BEAKER) (test 3+ WBCs curb=1799) GRAM STAIN RESULT (BEAKER) (test No organisms seen pfmh=13631) BLOOD [id number] 17:08:00 Test Item Value Reference Range Comments CULTURE (BEAKER) (test anct=8297) No growth in 5 days BLOOD [id number] 17:06:00 Test Item Value Reference Range Comments CULTURE (BEAKER) (test yges=3865) No growth in 5 days CBC W/PLT COUNT & AUTO [id number] 07:05:00 Test Item Value Reference Range Comments WHITE BLOOD CELL COUNT (BEAKER) (test kmoj=512) 3.5 K/ L 4.0-10.0 RED BLOOD CELL COUNT (BEAKER) (test dzmj=116) 2.16 M/ L 4.20-5.80 HEMOGLOBIN (BEAKER) (test qsmp=368) 7.8 GM/DL 13.0-16.8 HEMATOCRIT (BEAKER) (test ypno=482) 23.9 % 40.0-50.0 MEAN CORPUSCULAR VOLUME (BEAKER) (test xpcz=189) 111.0 fL 82.0-98.0 MEAN CORPUSCULAR HEMOGLOBIN (BEAKER) (test 36.3 pg 27.0-33.0 cmkk=120) MEAN CORPUSCULAR HEMOGLOBIN CONC (BEAKER) (test 32.8 GM/DL 32.0-36.0 awaq=652) RED CELL DISTRIBUTION WIDTH (BEAKER) (test 13.9 % 10.3-14.2 zspd=883) PLATELET COUNT (BEAKER) (test yeye=303) 72 K/CU MM 150-430 MEAN PLATELET VOLUME (BEAKER) (test rtwv=102) 6.4 fL 6.5-10.5 NUCLEATED RED BLOOD CELLS (BEAKER) (test 0 /100 WBC 0-0 ulve=966) NEUTROPHILS RELATIVE PERCENT (BEAKER) (test 51 % bpaw=710) LYMPHOCYTES RELATIVE PERCENT (BEAKER) (test 25 % qbhm=524) MONOCYTES RELATIVE PERCENT (BEAKER) (test 18 % vjfn=411) EOSINOPHILS RELATIVE PERCENT (BEAKER) (test 6 % znfi=995) BASOPHILS RELATIVE PERCENT (BEAKER) (test 0 % bwyi=078) NEUTROPHILS ABSOLUTE COUNT (BEAKER) (test 1.77 K/ L 1.80-8.00 uwre=829) LYMPHOCYTES ABSOLUTE COUNT (BEAKER) (test 0.87 K/ L 1.48-4.50 gefv=819) MONOCYTES ABSOLUTE COUNT (BEAKER) (test vfti=092) 0.62 K/ L 0.00-1.30 EOSINOPHILS ABSOLUTE COUNT (BEAKER) (test 0.22 K/ L 0.00-0.50 pjfr=179) BASOPHILS ABSOLUTE COUNT (BEAKER) (test fbvd=387) 0.01 K/ L 0.00-0.20 0.00BASI METABOLIC [id number] 06:54:00 Test Item Value Reference Range Comments SODIUM (BEAKER) (test 137 meq/L 136-145 zzwb=413) POTASSIUM (BEAKER) (test 3.8 meq/L 3.5-5.1 fehu=065) CHLORIDE (BEAKER) (test 109 meq/L 98-107 okaa=067) CO2 (BEAKER) (test 21 meq/L 22-29 exos=461) BLOOD UREA NITROGEN 17 mg/dL 7-21 (BEAKER) (test ivul=892) CREATININE (BEAKER) (test 1.60 mg/dL 0.57-1.25 mehs=479) GLUCOSE RANDOM (BEAKER) 76 mg/dL 70-105 (test bpcw=200) CALCIUM (BEAKER) (test 7.5 mg/dL 8.4-10.2 kvex=461) EGFR (BEAKER) (test 46 mL/min/1.73 sq m ESTIMATED GFR IS NOT ywtw=1600) ACCURATE CREATININE CLEARANCE IN PREDICTING GLOMERULAR FILTRATION RATE. ESTIMATED GFR IS NOT APPLICABLE FOR DIALYSIS PATIENTS. Specimen moderately ictericHEPATIC FUNCTION [id number] 06:53:00 Test Item Value Reference Range Comments TOTAL PROTEIN (BEAKER) (test qhix=474) 5.6 gm/dL 6.0-8.3 ALBUMIN (BEAKER) (test ltwi=8575) 2.4 g/dL 3.5-5.0 BILIRUBIN TOTAL (BEAKER) (test lpyi=446) 4.5 mg/dL 0.2-1.2 BILIRUBIN DIRECT (BEAKER) (test ewvk=217) 2.7 mg/dL 0.1-0.5 ALKALINE PHOSPHATASE (BEAKER) (test ckon=362) 74 U/L 40-150 AST (SGOT) (BEAKER) (test jnfm=380) 36 U/L 5-34 ALT (SGPT) (BEAKER) (test fnth=618) 13 U/L 6-55 Specimen moderately ictericB-TYPE NATRIURETIC FACTOR (BNP)2017-02-08 06:52:00 Test Item Value Reference Range Comments B-TYPE NATRIURETIC PEPTIDE (BEAKER) (test 446 pg/mL 0-100 lzog=139) PROTHROMBIN [id number] 06:36:00 Test Item Value Reference Range Comments PROTIME (BEAKER) (test omyf=050) 28.7 seconds 11.7-14.7 INR (BEAKER) (test kbpp=022) 2.7 <=5.9 RECOMMENDED COUMADIN/WARFARIN INR THERAPY RANGESSTANDARD DOSE: 2.0 - 3.0 Includes: PROPHYLAXIS forvenous thrombosis, systemic embolization; TREATMENT for venous thrombosis and/or pulmonary embolus.HIGH RISK: Target INR is 2.5-3.5 for patients with mechanical heart valves.EOSINOPHIL SMEAR, [id number] 21: 44:00 Test Item Value Reference Range Comments EOSINOPHIL SMEAR, URINE (BEAKER) (test No EOS seen No EOS seen thho=7076) CREATININE, RANDOM [id number] 18:02:00 Test Item Value Reference Range Comments CREATININE URINE (BEAKER) (test snps=214) 96.3 mg/dL Reference Range: No NormalsSODIUM, RANDOM [id number] 18:02:00 Test Item Value Reference Range Comments SODIUM URINE (BEAKER) (test xopv=455) 58 meq/L Reference Range: No NormalsURINALYSIS W/ [id number] 17:33:00 Test Item Value Reference Range Comments COLOR (BEAKER) (test azjj=940) Yellow CLARITY (BEAKER) (test bifr=155) Clear SPECIFIC GRAVITY UA (BEAKER) (test rxgn=118) 1.009 1.001-1.035 PH UA (BEAKER) (test bhav=232) 6.0 5.0-8.0 PROTEIN UA (BEAKER) (test uxtx=583) Negative Negative GLUCOSE UA (BEAKER) (test qcyh=771) Negative Negative KETONES UA (BEAKER) (test tpic=339) Negative Negative BILIRUBIN UA (BEAKER) (test negc=386) Negative Negative BLOOD UA (BEAKER) (test yozx=472) Negative Negative NITRITE UA (BEAKER) (test idnv=179) Negative Negative LEUKOCYTE ESTERASE UA (BEAKER) (test zggd=753) Negative Negative UROBILINOGEN UA (BEAKER) (test cgqv=697) 4.0 mg/dL 0.2-1.0 RBC UA (BEAKER) (test axgr=556) < /HPF WBC UA (BEAKER) (test zjdw=876) 2 /HPF BACTERIA (BEAKER) (test ypfh=646) Rare SOURCE(BEAKER) (test agkg=1664) CBC W/PLT COUNT & AUTO [id number] 06:53:00 Test Item Value Reference Range Comments WHITE BLOOD CELL COUNT (BEAKER) (test izlm=032) 3.5 K/ L 4.0-10.0 RED BLOOD CELL COUNT (BEAKER) (test wikj=576) 2.17 M/ L 4.20-5.80 HEMOGLOBIN (BEAKER) (test xmgm=302) 7.9 GM/DL 13.0-16.8 HEMATOCRIT (BEAKER) (test fjmq=489) 23.9 % 40.0-50.0 MEAN CORPUSCULAR VOLUME (BEAKER) (test btia=581) 110.0 fL 82.0-98.0 MEAN CORPUSCULAR HEMOGLOBIN (BEAKER) (test 36.1 pg 27.0-33.0 mozt=893) MEAN CORPUSCULAR HEMOGLOBIN CONC (BEAKER) (test 32.9 GM/DL 32.0-36.0 gdqd=219) RED CELL DISTRIBUTION WIDTH (BEAKER) (test 14.0 % 10.3-14.2 esqf=244) PLATELET COUNT (BEAKER) (test rabl=803) 77 K/CU MM 150-430 MEAN PLATELET VOLUME (BEAKER) (test rrqh=851) 6.1 fL 6.5-10.5 NUCLEATED RED BLOOD CELLS (BEAKER) (test 0 /100 WBC 0-0 gkpj=905) NEUTROPHILS RELATIVE PERCENT (BEAKER) (test 56 % hirf=726) LYMPHOCYTES RELATIVE PERCENT (BEAKER) (test 20 % evbe=375) MONOCYTES RELATIVE PERCENT (BEAKER) (test 18 % pbdq=998) EOSINOPHILS RELATIVE PERCENT (BEAKER) (test 6 % njph=368) BASOPHILS RELATIVE PERCENT (BEAKER) (test 1 % orxa=987) NEUTROPHILS ABSOLUTE COUNT (BEAKER) (test 1.95 K/ L 1.80-8.00 gunu=706) LYMPHOCYTES ABSOLUTE COUNT (BEAKER) (test 0.69 K/ L 1.48-4.50 vamv=685) MONOCYTES ABSOLUTE COUNT (BEAKER) (test dynd=160) 0.62 K/ L 0.00-1.30 EOSINOPHILS ABSOLUTE COUNT (BEAKER) (test 0.20 K/ L 0.00-0.50 azpp=429) BASOPHILS ABSOLUTE COUNT (BEAKER) (test fcue=555) 0.03 K/ L 0.00-0.20 0.00BASI METABOLIC [id number] 06:45:00 Test Item Value Reference Range Comments SODIUM (BEAKER) (test 134 meq/L 136-145 iups=404) POTASSIUM (BEAKER) (test 3.6 meq/L 3.5-5.1 wbnv=975) CHLORIDE (BEAKER) (test 106 meq/L 98-107 kuns=820) CO2 (BEAKER) (test 21 meq/L 22-29 xwfd=460) BLOOD UREA NITROGEN 14 mg/dL 7-21 (BEAKER) (test kpfb=597) CREATININE (BEAKER) (test 1.33 mg/dL 0.57-1.25 zdjv=136) GLUCOSE RANDOM (BEAKER) 71 mg/dL 70-105 (test deiq=691) CALCIUM (BEAKER) (test 7.6 mg/dL 8.4-10.2 ufrf=529) EGFR (BEAKER) (test 57 mL/min/1.73 sq m ESTIMATED GFR IS NOT vjkn=3066) ACCURATE CREATININE CLEARANCE IN PREDICTING GLOMERULAR FILTRATION RATE. ESTIMATED GFR IS NOT APPLICABLE FOR DIALYSIS PATIENTS. Specimen moderately ictericHEPATIC FUNCTION [id number] 06:40:00 Test Item Value Reference Range Comments TOTAL PROTEIN (BEAKER) (test szdf=839) 5.6 gm/dL 6.0-8.3 ALBUMIN (BEAKER) (test zqrn=2030) 2.1 g/dL 3.5-5.0 BILIRUBIN TOTAL (BEAKER) (test frzy=638) 4.4 mg/dL 0.2-1.2 BILIRUBIN DIRECT (BEAKER) (test kgxc=151) 2.9 mg/dL 0.1-0.5 ALKALINE PHOSPHATASE (BEAKER) (test kujb=072) 86 U/L 40-150 AST (SGOT) (BEAKER) (test qfts=259) 45 U/L 5-34 ALT (SGPT) (BEAKER) (test zvha=797) 13 U/L 6-55 Specimen moderately ictericPROTHROMBIN [id number] 06:05:00 Test Item Value Reference Range Comments PROTIME (BEAKER) (test lttb=700) 29.4 seconds 11.7-14.7 INR (BEAKER) (test lwib=969) 2.8 <=5.9 RECOMMENDED COUMADIN/WARFARIN INR THERAPY RANGESSTANDARD DOSE: 2.0 - 3.0 Includes: PROPHYLAXIS forvenous thrombosis, systemic embolization; TREATMENT for venous thrombosis and/or pulmonary embolus.HIGH RISK: Target INR is 2.5-3.5 for patients with mechanical heart valves.BODY FLUID CELL COUNT WITH [id number] 20:51:00 Test Item Value Reference Range Comments APPEARANCE FLUID (BEAKER) (test etku=113) Slightly Hazy Clear COLOR FLUID (BEAKER) (test zncy=020) Yellow Colorless, Straw RBC FLUID (BEAKER) (test bybl=642) 545 /cu mm <=1 ADJUSTED WBC FLUID (BEAKER) (test fmnw=5263) 104 /cu mm <=5 LINING CELLS (BEAKER) (test nhpj=1454) 1 /cu mm <=1 NEUTROPHILS FLUID (BEAKER) (test nyaw=3736) 3 % LYMPHS FLUID (BEAKER) (test nmmv=466) 13 % MONO/MACROPHAGE FLUID (BEAKER) (test 84 % lrog=848) EOSINOPHILS FLUID (BEAKER) (test rvtv=155) 0 % BASO FLUID (BEAKER) (test zmuv=208) 0 % CONTAINER BODY FLUID (BEAKER) (test EDTA Tube ozxi=7800) POCT-GLUCOSE [id number] 18:48:00 Test Item Value Reference Range Comments POC-GLUCOSE METER (BEAKER) 105 mg/dL 70-110 TESTED AT [facility] [address] [facility] (test beyv=2556) [facility] [address] BASIC METABOLIC [id number] 05:45:00 Test Item Value Reference Range Comments SODIUM (BEAKER) (test 133 meq/L 136-145 ipoc=901) POTASSIUM (BEAKER) (test 4.3 meq/L 3.5-5.1 Specimen moderately bscm=455) hemolyzed CHLORIDE (BEAKER) (test 107 meq/L 98-107 aefv=275) CO2 (BEAKER) (test 19 meq/L 22-29 xtve=188) BLOOD UREA NITROGEN 10 mg/dL 7-21 (BEAKER) (test myxt=070) CREATININE (BEAKER) (test 0.86 mg/dL 0.57-1.25 Specimen moderately dbao=107) hemolyzed GLUCOSE RANDOM (BEAKER) 68 mg/dL 70-105 (test jyvu=061) CALCIUM (BEAKER) (test 7.5 mg/dL 8.4-10.2 zqkb=092) EGFR (BEAKER) (test 94 mL/min/1.73 sq m ESTIMATED GFR IS NOT atsq=1329) ACCURATE CREATININE CLEARANCE IN PREDICTING GLOMERULAR FILTRATION RATE. ESTIMATED GFR IS NOT APPLICABLE FOR DIALYSIS PATIENTS. Specimen slightly ictericHEPATIC FUNCTION [id number] 05:45:00 Test Item Value Reference Range Comments TOTAL PROTEIN (BEAKER) (test 5.9 gm/dL 6.0-8.3 Specimen moderately hemolyzed skim=365) ALBUMIN (BEAKER) (test 1.9 g/dL 3.5-5.0 Specimen moderately hemolyzed ppva=0735) BILIRUBIN TOTAL (BEAKER) (test 4.4 mg/dL 0.2-1.2 Specimen moderately hemolyzed azmv=863) BILIRUBIN DIRECT (BEAKER) 2.6 mg/dL 0.1-0.5 Specimen moderately hemolyzed (test kmbs=912) ALKALINE PHOSPHATASE (BEAKER) 86 U/L 40-150 (test eeeb=236) AST (SGOT) (BEAKER) (test 74 U/L 5-34 Specimen moderately hemolyzed ywhx=534) ALT (SGPT) (BEAKER) (test 17 U/L 6-55 Specimen moderately tmqa=171) hemolyzed Specimen slightly ictericCBC W/PLT COUNT & AUTO [id number] 05:21 :00 Test Item Value Reference Range Comments WHITE BLOOD CELL COUNT (BEAKER) (test ltzy=583) 3.5 K/ L 4.0-10.0 RED BLOOD CELL COUNT (BEAKER) (test betz=200) 2.06 M/ L 4.20-5.80 HEMOGLOBIN (BEAKER) (test tfsc=969) 7.9 GM/DL 13.0-16.8 HEMATOCRIT (BEAKER) (test ngmu=192) 22.8 % 40.0-50.0 MEAN CORPUSCULAR VOLUME (BEAKER) (test grvv=701) 110.0 fL 82.0-98.0 MEAN CORPUSCULAR HEMOGLOBIN (BEAKER) (test 38.2 pg 27.0-33.0 htjo=352) MEAN CORPUSCULAR HEMOGLOBIN CONC (BEAKER) (test 34.6 GM/DL 32.0-36.0 frjo=433) RED CELL DISTRIBUTION WIDTH (BEAKER) (test 13.5 % 10.3-14.2 xetl=556) PLATELET COUNT (BEAKER) (test kwvh=498) 61 K/CU MM 150-430 MEAN PLATELET VOLUME (BEAKER) (test mfal=977) 6.8 fL 6.5-10.5 NUCLEATED RED BLOOD CELLS (BEAKER) (test 0 /100 WBC 0-0 wgbt=687) NEUTROPHILS RELATIVE PERCENT (BEAKER) (test 51 % lgub=202) LYMPHOCYTES RELATIVE PERCENT (BEAKER) (test 24 % disi=127) MONOCYTES RELATIVE PERCENT (BEAKER) (test 18 % hvdr=213) EOSINOPHILS RELATIVE PERCENT (BEAKER) (test 7 % szeb=789) BASOPHILS RELATIVE PERCENT (BEAKER) (test 1 % paij=542) NEUTROPHILS ABSOLUTE COUNT (BEAKER) (test 1.76 K/ L 1.80-8.00 dxtb=096) LYMPHOCYTES ABSOLUTE COUNT (BEAKER) (test 0.85 K/ L 1.48-4.50 vkmv=486) MONOCYTES ABSOLUTE COUNT (BEAKER) (test nqad=242) 0.61 K/ L 0.00-1.30 EOSINOPHILS ABSOLUTE COUNT (BEAKER) (test 0.23 K/ L 0.00-0.50 vttd=184) BASOPHILS ABSOLUTE COUNT (BEAKER) (test bdlf=502) 0.02 K/ L 0.00-0.20 0.00PROTHROMBIN [id number] 05:19:00 Test Item Value Reference Range Comments PROTIME (BEAKER) (test pqik=840) 28.2 seconds 11.7-14.7 INR (BEAKER) (test osrn=849) 2.6 <=5.9 RECOMMENDED COUMADIN/WARFARIN INR THERAPY RANGESSTANDARD DOSE: 2.0 - 3.0 Includes: PROPHYLAXIS forvenous thrombosis, systemic embolization; TREATMENT for venous thrombosis and/or pulmonary embolus.HIGH RISK: Target INR is 2.5-3.5 for patients with mechanical heart valves.BODY FLUID CULTURE + GRAM [id number] 14:14:00 Test Item Value Reference Range Comments CULTURE (BEAKER) (test zxzx=0868) No growth GRAM STAIN RESULT (BEAKER) (test 2+ WBCs bmom=0945) GRAM STAIN RESULT (BEAKER) (test No organisms seen rcte=93675) CBC W/PLT COUNT & AUTO [id number] 10:28:00 Test Item Value Reference Range Comments WHITE BLOOD CELL COUNT (BEAKER) (test stdm=963) 3.6 K/ L 4.0-10.0 RED BLOOD CELL COUNT (BEAKER) (test zqat=970) 2.17 M/ L 4.20-5.80 HEMOGLOBIN (BEAKER) (test wwki=953) 7.7 GM/DL 13.0-16.8 HEMATOCRIT (BEAKER) (test vhoy=484) 23.8 % 40.0-50.0 MEAN CORPUSCULAR VOLUME (BEAKER) (test rqtx=490) 110.0 fL 82.0-98.0 MEAN CORPUSCULAR HEMOGLOBIN (BEAKER) (test 35.3 pg 27.0-33.0 ctph=086) MEAN CORPUSCULAR HEMOGLOBIN CONC (BEAKER) (test 32.1 GM/DL 32.0-36.0 wtws=197) RED CELL DISTRIBUTION WIDTH (BEAKER) (test 13.7 % 10.3-14.2 zrvs=415) PLATELET COUNT (BEAKER) (test pxur=099) 62 K/CU MM 150-430 MEAN PLATELET VOLUME (BEAKER) (test ysyw=505) 6.5 fL 6.5-10.5 NUCLEATED RED BLOOD CELLS (BEAKER) (test 0 /100 WBC 0-0 gxfk=398) NEUTROPHILS RELATIVE PERCENT (BEAKER) (test 58 % ocyg=798) LYMPHOCYTES RELATIVE PERCENT (BEAKER) (test 18 % omdz=071) MONOCYTES RELATIVE PERCENT (BEAKER) (test 17 % cnmf=549) EOSINOPHILS RELATIVE PERCENT (BEAKER) (test 8 % zutj=131) BASOPHILS RELATIVE PERCENT (BEAKER) (test 0 % qjit=123) NEUTROPHILS ABSOLUTE COUNT (BEAKER) (test 2.10 K/ L 1.80-8.00 szew=402) LYMPHOCYTES ABSOLUTE COUNT (BEAKER) (test 0.63 K/ L 1.48-4.50 dtcq=573) MONOCYTES ABSOLUTE COUNT (BEAKER) (test ogfg=819) 0.59 K/ L 0.00-1.30 EOSINOPHILS ABSOLUTE COUNT (BEAKER) (test 0.28 K/ L 0.00-0.50 peyj=876) BASOPHILS ABSOLUTE COUNT (BEAKER) (test tttm=172) 0.00 K/ L 0.00-0.20 [id number] 10:16:00 Test Item Value Reference Range Comments PROCALCITONIN (BEAKER) (test bapq=6441) < ng/mL <0.05 SEPSIS RISK (ng/mL)Low: 0.05-0.50Intermediate: 0.51-2.00High: & gt;=2.01HEPATIC FUNCTION [id number] 06:26:00 Test Item Value Reference Range Comments TOTAL PROTEIN (BEAKER) (test ukpo=190) 5.6 gm/dL 6.0-8.3 ALBUMIN (BEAKER) (test fqkb=6507) 1.9 g/dL 3.5-5.0 BILIRUBIN TOTAL (BEAKER) (test qxie=958) 4.7 mg/dL 0.2-1.2 BILIRUBIN DIRECT (BEAKER) (test glav=804) 2.9 mg/dL 0.1-0.5 ALKALINE PHOSPHATASE (BEAKER) (test gmvn=925) 85 U/L 40-150 AST (SGOT) (BEAKER) (test mlds=256) 53 U/L 5-34 ALT (SGPT) (BEAKER) (test pgij=056) 14 U/L 6-55 Specimen moderately ictericBASIC METABOLIC [id number] 06:26:00 Test Item Value Reference Range Comments SODIUM (BEAKER) (test 134 meq/L 136-145 ndny=251) POTASSIUM (BEAKER) (test 3.8 meq/L 3.5-5.1 xmgw=307) CHLORIDE (BEAKER) (test 107 meq/L 98-107 rdio=315) CO2 (BEAKER) (test 19 meq/L 22-29 lkcd=595) BLOOD UREA NITROGEN 8 mg/dL 7-21 (BEAKER) (test ziwv=889) CREATININE (BEAKER) (test 0.73 mg/dL 0.57-1.25 pzgq=457) GLUCOSE RANDOM (BEAKER) 73 mg/dL 70-105 (test gajf=194) CALCIUM (BEAKER) (test 7.2 mg/dL 8.4-10.2 lsyd=486) EGFR (BEAKER) (test 113 mL/min/1.73 sq m ESTIMATED GFR IS NOT ipfv=0575) ACCURATE CREATININE CLEARANCE IN PREDICTING GLOMERULAR FILTRATION RATE. ESTIMATED GFR IS NOT APPLICABLE FOR DIALYSIS PATIENTS. Specimen moderately ictericPROTHROMBIN TIME/[id number] 06:05:00 Test Item Value Reference Range Comments PROTIME (BEAKER) (test nmso=002) 30.9 seconds 11.7-14.7 INR (BEAKER) (test dtta=598) 3.0 <=5.9 RECOMMENDED COUMADIN/WARFARIN INR THERAPY RANGESSTANDARD DOSE: 2.0 - 3.0 Includes: PROPHYLAXIS forvenous thrombosis, systemic embolization; TREATMENT for venous thrombosis and/or pulmonary embolus.HIGH RISK: Target INR is 2.5-3.5 for patients with mechanical heart valves.[id number] 05:54:00 Test Item Value Reference Range Comments PREALBUMIN (BEAKER) (test tfdf=723) < mg/dL 14-45 URINE [id number] 12:11:00 Test Item Value Reference Range Comments CULTURE (BEAKER) (test cbsk=7568) No growth VANCOMYCIN LEVEL, [id number] 09:26:00 Test Item Value Reference Range Comments VANCOMYCIN TROUGH (BEAKER) (test bpng=073) 15.3 ug/mL 10.0-20.0 HEPATIC FUNCTION [id number] 06:17:00 Test Item Value Reference Range Comments TOTAL PROTEIN (BEAKER) (test qudk=071) 5.6 gm/dL 6.0-8.3 ALBUMIN (BEAKER) (test grgu=7756) 2.0 g/dL 3.5-5.0 BILIRUBIN TOTAL (BEAKER) (test csyb=302) 4.2 mg/dL 0.2-1.2 BILIRUBIN DIRECT (BEAKER) (test czqd=217) 2.7 mg/dL 0.1-0.5 ALKALINE PHOSPHATASE (BEAKER) (test hgfk=042) 98 U/L 40-150 AST (SGOT) (BEAKER) (test nqph=130) 45 U/L 5-34 ALT (SGPT) (BEAKER) (test rgka=020) 12 U/L 6-55 Specimen slightly ictericBASIC METABOLIC [id number] 06:17:00 Test Item Value Reference Range Comments SODIUM (BEAKER) (test 133 meq/L 136-145 vrsu=567) POTASSIUM (BEAKER) (test 3.4 meq/L 3.5-5.1 hgun=877) CHLORIDE (BEAKER) (test 107 meq/L 98-107 gmkw=626) CO2 (BEAKER) (test 22 meq/L 22-29 hpzt=452) BLOOD UREA NITROGEN 7 mg/dL 7-21 (BEAKER) (test yepv=912) CREATININE (BEAKER) (test 0.73 mg/dL 0.57-1.25 hfjw=046) GLUCOSE RANDOM (BEAKER) 87 mg/dL 70-105 (test qaij=826) CALCIUM (BEAKER) (test 7.2 mg/dL 8.4-10.2 pmow=581) EGFR (BEAKER) (test 113 mL/min/1.73 sq m ESTIMATED GFR IS NOT copr=4103) ACCURATE CREATININE CLEARANCE IN PREDICTING GLOMERULAR FILTRATION RATE. ESTIMATED GFR IS NOT APPLICABLE FOR DIALYSIS PATIENTS. Specimen slightly ictericPROTHROMBIN [id number] 06:04:00 Test Item Value Reference Range Comments PROTIME (BEAKER) (test nwuw=977) 31.7 seconds 11.7-14.7 INR (BEAKER) (test znfo=251) 3.0 <=5.9 RECOMMENDED COUMADIN/WARFARIN INR THERAPY RANGESSTANDARD DOSE: 2.0 - 3.0 Includes: PROPHYLAXIS forvenous thrombosis, systemic embolization; TREATMENT for venous thrombosis and/or pulmonary embolus.HIGH RISK: Target INR is 2.5-3.5 for patients with mechanical heart valves.VITAMIN B12 AND [id number] 19:36 :00 Test Item Value Reference Range Comments VITAMIN B12 (BEAKER) (test yige=953) 1121 pg/mL 213-816 FOLATE (BEAKER) (test axzk=025) 18.3 ng/mL >=7.0 Effective 09/13/2014: Folate Reference Range ChangeNew: >=7.0 Previous: & gt;=5.4VITAMIN B12 AND [id number] 14:57:00 Test Item Value Reference Range Comments VITAMIN B12 (BEAKER) (test oizr=814) 1325 pg/mL 213-816 FOLATE (BEAKER) (test dxyl=650) 8.3 ng/mL >=7.0 Effective 09/13/2014: Folate Reference Range ChangeNew: >=7.0 Previous: & gt;=5.4ANTI-NUCLEAR ANTIBODY (CHERYL)2017-02-03 13:56:00 Test Item Value Reference Range Comments ANTI-NUCLEAR ANTIBODY (CHERYL) (BEAKER) (test Negative Negative ziwk=451) HEPATITIS B CORE ANTIBODY, [id number] 12:27:00 Test Item Value Reference Range Comments HEPATITIS B CORE TOTAL ANTIBODY (BEAKER) (test Nonreactive Nonreactive leqq=597) CRYPTOCOCCAL [id number] 11:25:00 Test Item Value Reference Range Comments CRYPTOCOCCAL ANTIGEN, SERUM (BEAKER) (test Negative Negative, Interference bbqk=5755) HEPATITIS B SURFACE [id number] 11:15:00 Test Item Value Reference Range Comments HEPATITIS B SURFACE ANTIBODY (BEAKER) (test < mIU/mL <8.0 lmna=111) HEPATITIS B SURFACE [id number] 09:53:00 Test Item Value Reference Range Comments HEPATITIS B SURFACE ANTIGEN (2) (BEAKER) (test Nonreactive Nonreactive ttef=0321) HIV-1 ANTIGEN WITH HIV-1/2 [id number] 09:53:00 Test Item Value Reference Range Comments HIV-1 ANTIGEN WITH HIV 1\T\2 ANTIBODY (2) Nonreactive Nonreactive (BEAKER) (test xlaa=7099) HEPATIC FUNCTION [id number] 07:01:00 Test Item Value Reference Range Comments TOTAL PROTEIN (BEAKER) (test qggl=668) 5.5 gm/dL 6.0-8.3 ALBUMIN (BEAKER) (test irfm=5957) 2.0 g/dL 3.5-5.0 BILIRUBIN TOTAL (BEAKER) (test vmyz=390) 3.8 mg/dL 0.2-1.2 BILIRUBIN DIRECT (BEAKER) (test nkld=203) 2.5 mg/dL 0.1-0.5 ALKALINE PHOSPHATASE (BEAKER) (test cyqr=124) 108 U/L 40-150 AST (SGOT) (BEAKER) (test ofyz=875) 40 U/L 5-34 ALT (SGPT) (BEAKER) (test qgbe=255) 10 U/L 6-55 Specimen slightly ictericBASIC METABOLIC [id number] 07:01:00 Test Item Value Reference Range Comments SODIUM (BEAKER) (test 133 meq/L 136-145 jjix=144) POTASSIUM (BEAKER) (test 3.7 meq/L 3.5-5.1 keqr=548) CHLORIDE (BEAKER) (test 108 meq/L 98-107 gwie=207) CO2 (BEAKER) (test 20 meq/L 22-29 luhm=409) BLOOD UREA NITROGEN 7 mg/dL 7-21 (BEAKER) (test iwkj=170) CREATININE (BEAKER) (test 0.76 mg/dL 0.57-1.25 ejpe=905) GLUCOSE RANDOM (BEAKER) 100 mg/dL 70-105 (test dfck=820) CALCIUM (BEAKER) (test 7.3 mg/dL 8.4-10.2 qjha=922) EGFR (BEAKER) (test 108 mL/min/1.73 sq m ESTIMATED GFR IS NOT qmgp=7290) ACCURATE CREATININE CLEARANCE IN PREDICTING GLOMERULAR FILTRATION RATE. ESTIMATED GFR IS NOT APPLICABLE FOR DIALYSIS PATIENTS. Specimen slightly ictericCBC W/PLT COUNT & AUTO [id number] 06:53 :00 Test Item Value Reference Range Comments WHITE BLOOD CELL COUNT (BEAKER) (test edyu=213) 3.5 K/ L 4.0-10.0 RED BLOOD CELL COUNT (BEAKER) (test kvta=545) 1.83 M/ L 4.20-5.80 HEMOGLOBIN (BEAKER) (test lbrx=715) 7.3 GM/DL 13.0-16.8 HEMATOCRIT (BEAKER) (test gpbe=148) 19.9 % 40.0-50.0 MEAN CORPUSCULAR VOLUME (BEAKER) (test futy=124) 109.0 fL 82.0-98.0 MEAN CORPUSCULAR HEMOGLOBIN (BEAKER) (test 39.9 pg 27.0-33.0 wugj=922) MEAN CORPUSCULAR HEMOGLOBIN CONC (BEAKER) (test 36.6 GM/DL 32.0-36.0 cvxl=208) RED CELL DISTRIBUTION WIDTH (BEAKER) (test 14.3 % 10.3-14.2 cfug=238) PLATELET COUNT (BEAKER) (test csad=274) 35 K/CU MM 150-430 MEAN PLATELET VOLUME (BEAKER) (test nyyt=230) 6.6 fL 6.5-10.5 NUCLEATED RED BLOOD CELLS (BEAKER) (test 0 /100 WBC 0-0 jcuy=127) NEUTROPHILS RELATIVE PERCENT (BEAKER) (test 60 % wjju=057) LYMPHOCYTES RELATIVE PERCENT (BEAKER) (test 18 % vobf=120) MONOCYTES RELATIVE PERCENT (BEAKER) (test 17 % qzhp=588) EOSINOPHILS RELATIVE PERCENT (BEAKER) (test 6 % sexg=823) BASOPHILS RELATIVE PERCENT (BEAKER) (test 0 % exdl=171) NEUTROPHILS ABSOLUTE COUNT (BEAKER) (test 2.06 K/ L 1.80-8.00 rfle=509) LYMPHOCYTES ABSOLUTE COUNT (BEAKER) (test 0.61 K/ L 1.48-4.50 jguz=591) MONOCYTES ABSOLUTE COUNT (BEAKER) (test lwlm=803) 0.58 K/ L 0.00-1.30 EOSINOPHILS ABSOLUTE COUNT (BEAKER) (test 0.19 K/ L 0.00-0.50 fifv=885) BASOPHILS ABSOLUTE COUNT (BEAKER) (test tggt=924) 0.01 K/ L 0.00-0.20 0.00PROTHROMBIN [id number] 06:39:00 Test Item Value Reference Range Comments PROTIME (BEAKER) (test hyzr=448) 30.6 seconds 11.7-14.7 INR (BEAKER) (test fqbk=673) 2.9 <=5.9 RECOMMENDED COUMADIN/WARFARIN INR THERAPY RANGESSTANDARD DOSE: 2.0 - 3.0 Includes: PROPHYLAXIS forvenous thrombosis, systemic embolization; TREATMENT for venous thrombosis and/or pulmonary embolus.HIGH RISK: Target INR is 2.5-3.5 for patients with mechanical heart valves.URINALYSIS W/ [id number] 16 :58:00 Test Item Value Reference Range Comments COLOR (BEAKER) (test herh=255) Yellow CLARITY (BEAKER) (test qjht=569) Clear SPECIFIC GRAVITY UA (BEAKER) (test 1.025 1.001-1.035 djra=158) PH UA (BEAKER) (test zlqg=213) 7.0 5.0-8.0 PROTEIN UA (BEAKER) (test fmie=643) Negative Negative GLUCOSE UA (BEAKER) (test qmbs=987) Negative Negative KETONES UA (BEAKER) (test fbwh=011) Negative Negative BILIRUBIN UA (BEAKER) (test yyyr=302) Positive Negative BLOOD UA (BEAKER) (test yyka=646) Negative Negative NITRITE UA (BEAKER) (test munw=476) Negative Negative LEUKOCYTE ESTERASE UA (BEAKER) (test Negative Negative yuzj=725) UROBILINOGEN UA (BEAKER) (test onyv=403) 8.0 mg/dL 0.2-1.0 RBC UA (BEAKER) (test bkes=530) 0 /HPF WBC UA (BEAKER) (test wknq=684) 2 /HPF MUCUS (BEAKER) (test qpfs=0767) Rare HYALINE CASTS (BEAKER) (test rgeu=547) 3 /LPF SOURCE(BEAKER) (test fckl=4925) Urine, Clean Catch [id number] 13:32:00 Test Item Value Reference Range Comments FERRITIN (BEAKER) (test rdpl=069) 116 ng/mL 5-275 Effective 09/13/2014: Reference Range ChangeNew: Male 5-275 Previous: Male 22-322 Female 5-275 Female 10-291HEPATITIS A ANTIBODY, [id number] 13:19:00 Test Item Value Reference Range Comments HEPATITIS A IGG ANTIBODY (BEAKER) (test jluv=0012) Reactive Nonreactive ALPHA FETOPROTEIN (AFP), TUMOR [id number] 13:17:00 Test Item Value Reference Range Comments ALPHA-FETOPROTEIN (BEAKER) (test kely=3603) 4.5 ng/mL <10.0 Effective 09/13/2014: Reference Range ChangeNew: <10.0 Previous: 0.0- 8.0HEPATITIS C [id number] 13:17:00 Test Item Value Reference Range Comments HEPATITIS C ANTIBODY (BEAKER) (test ifpj=770) Nonreactive Nonreactive BODY FLUID CELL COUNT WITH [id number] 13:03:00 Test Item Value Reference Range Comments APPEARANCE FLUID (BEAKER) (test qibz=816) Cloudy Clear COLOR FLUID (BEAKER) (test zqxd=092) Yellow Colorless, Straw RBC FLUID (BEAKER) (test wgmu=129) 1519 /cu mm <=1 ADJUSTED WBC FLUID (BEAKER) (test yfiq=0485) 108 /cu mm <=5 LINING CELLS (BEAKER) (test mfpa=1245) 14 /cu mm <=1 NEUTROPHILS FLUID (BEAKER) (test ngru=2676) 11 % LYMPHS FLUID (BEAKER) (test ligp=833) 30 % MONO/MACROPHAGE FLUID (BEAKER) (test phfb=965) 59 % EOSINOPHILS FLUID (BEAKER) (test ilwl=508) 0 % BASO FLUID (BEAKER) (test fsch=325) 0 % CONTAINER BODY FLUID (BEAKER) (test dund=8434) EDTA Tube BASIC METABOLIC [id number] 12:56:00 Test Item Value Reference Range Comments SODIUM (BEAKER) (test 131 meq/L 136-145 haco=442) POTASSIUM (BEAKER) (test 4.0 meq/L 3.5-5.1 Specimen moderately jwrw=450) hemolyzed CHLORIDE (BEAKER) (test 105 meq/L 98-107 kfhw=912) CO2 (BEAKER) (test 18 meq/L 22-29 pyxi=926) BLOOD UREA NITROGEN 6 mg/dL 7-21 (BEAKER) (test ualu=387) CREATININE (BEAKER) (test 0.72 mg/dL 0.57-1.25 Specimen moderately kjzj=347) hemolyzed GLUCOSE RANDOM (BEAKER) 103 mg/dL 70-105 (test zezk=450) CALCIUM (BEAKER) (test 7.4 mg/dL 8.4-10.2 hzpf=531) EGFR (BEAKER) (test 115 mL/min/1.73 sq m ESTIMATED GFR IS NOT kmqs=3516) ACCURATE CREATININE CLEARANCE IN PREDICTING GLOMERULAR FILTRATION RATE. ESTIMATED GFR IS NOT APPLICABLE FOR DIALYSIS PATIENTS. Specimen moderately ictericIRON, TIBC, % SAT. (WITHOUT FERRITIN)2017-02-02 12:56 :00 Test Item Value Reference Range Comments IRON (BEAKER) (test uupn=063) 55 ug/dL 40-160 TOTAL IRON BINDING CAPACITY (BEAKER) (test 175 ug/dL 250-450 tksv=111) IRON % SATURATION (2) (BEAKER) (test rbge=3408) 31 % 20-55 HEPATIC FUNCTION [id number] 12:50:00 Test Item Value Reference Range Comments TOTAL PROTEIN (BEAKER) (test 6.7 gm/dL 6.0-8.3 Specimen moderately hemolyzed bgjy=071) ALBUMIN (BEAKER) (test 2.0 g/dL 3.5-5.0 Specimen moderately hemolyzed vkvp=9988) BILIRUBIN TOTAL (BEAKER) (test 5.1 mg/dL 0.2-1.2 Specimen moderately hemolyzed uhhw=347) BILIRUBIN DIRECT (BEAKER) 2.8 mg/dL 0.1-0.5 Specimen moderately hemolyzed (test jbdu=766) ALKALINE PHOSPHATASE (BEAKER) 99 U/L 40-150 (test aovc=356) AST (SGOT) (BEAKER) (test 62 U/L 5-34 Specimen moderately hemolyzed dqfz=552) ALT (SGPT) (BEAKER) (test 15 U/L 6-55 Specimen moderately okxh=843) hemolyzed Specimen moderately ictericCBC W/PLT COUNT & AUTO [id number] 12: 47:00 Test Item Value Reference Range Comments WHITE BLOOD CELL COUNT (BEAKER) (test lkir=329) 3.3 K/ L 4.0-10.0 RED BLOOD CELL COUNT (BEAKER) (test xhgc=726) 2.08 M/ L 4.20-5.80 HEMOGLOBIN (BEAKER) (test ecqh=326) 7.8 GM/DL 13.0-16.8 HEMATOCRIT (BEAKER) (test cqbv=998) 22.9 % 40.0-50.0 MEAN CORPUSCULAR VOLUME (BEAKER) (test iszs=350) 110.0 fL 82.0-98.0 MEAN CORPUSCULAR HEMOGLOBIN (BEAKER) (test 37.4 pg 27.0-33.0 jpjl=991) MEAN CORPUSCULAR HEMOGLOBIN CONC (BEAKER) (test 34.1 GM/DL 32.0-36.0 lrnv=790) RED CELL DISTRIBUTION WIDTH (BEAKER) (test 15.0 % 10.3-14.2 uvvp=613) PLATELET COUNT (BEAKER) (test dryo=707) 48 K/CU MM 150-430 MEAN PLATELET VOLUME (BEAKER) (test ynie=312) 6.6 fL 6.5-10.5 NUCLEATED RED BLOOD CELLS (BEAKER) (test 0 /100 WBC 0-0 fese=378) NEUTROPHILS RELATIVE PERCENT (BEAKER) (test 62 % ffbp=897) LYMPHOCYTES RELATIVE PERCENT (BEAKER) (test 17 % kybt=534) MONOCYTES RELATIVE PERCENT (BEAKER) (test 15 % wsoj=631) EOSINOPHILS RELATIVE PERCENT (BEAKER) (test 6 % yxbk=951) BASOPHILS RELATIVE PERCENT (BEAKER) (test 0 % evmn=652) NEUTROPHILS ABSOLUTE COUNT (BEAKER) (test 2.03 K/ L 1.80-8.00 qvpx=810) LYMPHOCYTES ABSOLUTE COUNT (BEAKER) (test 0.57 K/ L 1.48-4.50 ikab=669) MONOCYTES ABSOLUTE COUNT (BEAKER) (test cwnj=327) 0.48 K/ L 0.00-1.30 EOSINOPHILS ABSOLUTE COUNT (BEAKER) (test 0.19 K/ L 0.00-0.50 hrkz=078) BASOPHILS ABSOLUTE COUNT (BEAKER) (test oktb=854) 0.01 K/ L 0.00-0.20 0.00PROTHROMBIN [id number] 12:42:00 Test Item Value Reference Range Comments PROTIME (BEAKER) (test wylu=485) 27.0 seconds 11.7-14.7 INR (BEAKER) (test pmhr=911) 2.5 <=5.9 RECOMMENDED COUMADIN/WARFARIN INR THERAPY RANGESSTANDARD DOSE: 2.0 - 3.0 Includes: PROPHYLAXIS forvenous thrombosis, systemic embolization; TREATMENT for venous thrombosis and/or pulmonary embolus.HIGH RISK: Target INR is 2.5-3.5 for patients with mechanical heart valves.ALBUMIN, BODY [id number] 11:46:00 Test Item Value Reference Range Comments ALBUMIN FLUID (BEAKER) (test vtgd=662) 0.5 gm/dL Reference Range: No Normals Assay performance has not been validated for this type of specimen.PROTEIN, BODY [id number] 11:42:00 Test Item Value Reference Range Comments PROTEIN FLUID (BEAKER) (test lzum=321) 1.3 g/dL Absence of reference range indicates that normals have not been defined.Assay performance has not been validated for this type of specimen.
[2018-02-14 00:27] LABS: Absolute Lymphocytes (CBC) 0.6 K/uL (0.7-4.9); Absolute Monocytes 0.7 K/uL (0.1-1.3); Absolute Neutrophil 2.5 K/uL (1.8-8.0); Basophils % 0.4 % (0-1.3); Eosinophils % 2.5 % (0-4.4); Hematocrit 24.9 % (39.6-49.0); Lymphocytes % 14.8 % (15.3-44.8); MCH 34.1 pg (27.0-35.0); MCV 98.9 fL (80-100); MPV 6.8 fL (7.6-11.3); Monocytes % 17.4 % (3.3-12.3); RBC Red Blood Cell Count 2.52 M/uL (4.33-5.43)
[2018-02-14 00:30] LABS: Protime INR 1.85
[2018-02-14 00:41] LABS: Potassium 3.8 mEq/L (3.6-5.0)
[2018-02-14 00:47] LABS: Albumin 3.4 g/dL (3.2-5.5); Bilirubin Direct 2.6 mg/dL (0-0.2); CKMB Creatine Kinase MB 0.7 ng/ml (0.3-4.0); Magnesium 1.6 mg/dL (1.8-2.5)
[2018-02-14 00:50] LABS: Bilirubin Total 5.1 mg/dL (0.3-1.2)
[2018-02-14] MEDS ORDERED: MAGNESIUM SULFATE 1 gm IVPB 1 GM/100 ML BAG IV ONE ×2 (01:42→11:00)
[2018-02-14 02:01] LABS: Blood Morphology Comment NOTED (NOT SEEN); Platelet Estimate DECR; Teardrop Cell 1+
[2018-02-14 02:20] LABS: Urine Blood NEGATIVE (NEG); Urine Glucose NEGATIVE (NEG); Urine Protein NEGATIVE (NEG); Urine pH 5.5 (5.0-7.0)
--- NOTE | 2018-02-14 03:12 | EDPHYS ---
Physician Documentation [facility] Name: Abhishek Davis Age: 52 yrs Sex: Male : 1965 Arrival Date: 02/13/2018 Time: 23:02 Bed 20 Private MD: ED Physician Stanislaw Stratton HPI: 02/13 23:19 This 52 yrs old Male presents to ER via Unassigned with complaints of fall to marquise left side, ascites. 23:19 The patient presents with abdominal pain in the upper abdomen, in the lower abdomen, marquise abdominal distention in the upper abdomen, in the lower abdomen. Onset: The symptoms/episode began/occurred just prior to arrival, this morning. hx of cirrhosis, needed paracentesis friday. Details of fall: The patient fell from an upright position, while walking. Onset: The symptoms/episode began/occurred 1 week(s) ago. Associated injuries: The patient sustained injury to the abdomen, specifically the anterior aspect of right lateral abdomen, posterior aspect of right lateral abdomen, left upper quadrant and left lower quadrant, contusion. Historical: - Allergies: 23:24 No Known Allergies; kr2 - Home Meds: 23:24 Hydrocortisone Oral [Active]; Hydroxyzine Oral [Active]; Lactulose Oral 3 times per day kr2 [Active]; mag oxide [Active]; midodrine Oral 3 times per day [Active]; ursodiol 300 mg Oral cap 2 cap 2 times per day [Active]; Xifaxan 550 mg Oral tab 1 tab 2 times per day [Active]; - PMHx: 23:24 Anemia; Cirrhosis; Umbilical hernia; renal insufficiency; kr2 - PSHx: 23:24 Hernia repair; kr2 - Immunization history:: Adult Immunizations unknown. - Social history:: Smoking status: Patient/guardian denies using tobacco. - Family history:: not pertinent. ROS: 23:19 Constitutional: Negative for fever, chills, and weight loss, Eyes: Negative for injury, marquise pain, redness, and discharge, ENT: Negative for injury, pain, and discharge, Neck: Negative for injury, pain, and swelling, Cardiovascular: Negative for chest pain, palpitations, and edema, : Negative for injury, bleeding, discharge, and swelling, MS/Extremity: Negative for injury and deformity, Skin: Negative for injury, rash, and discoloration, Neuro: Negative for headache, weakness, numbness, tingling, and seizure, Psych: Negative for depression, anxiety, suicide ideation, homicidal ideation, and hallucinations, Allergy/Immunology: Negative for hives, rash, and allergies, Endocrine: Negative for neck swelling, polydipsia, polyuria, polyphagia, and marked weight changes, Hematologic/Lymphatic: Negative for swollen nodes, abnormal bleeding, and unusual bruising. 23:19 Respiratory: Positive for cough. 23:19 Abdomen/GI: Positive for abdominal pain, of the anterior aspect of right lateral abdomen, posterior aspect of right lateral abdomen, left upper quadrant and left lower quadrant. Exam: 23:19 Constitutional: This is a well developed, well nourished patient who is awake, alert, marquise and in no acute distress. Head/Face: Normocephalic, atraumatic. Eyes: Pupils equal round and reactive to light, extra-ocular motions intact. Lids and lashes normal. Conjunctiva and sclera are non-icteric and not injected. Cornea within normal limits. Periorbital areas with no swelling, redness, or edema. ENT: Nares patent. No nasal discharge, no septal abnormalities noted. Tympanic membranes are normal and external auditory canals are clear. Oropharynx with no redness, swelling, or masses, exudates, or evidence of obstruction, uvula midline. Mucous membranes moist. Neck: Trachea midline, no thyromegaly or masses palpated, and no cervical lymphadenopathy. Supple, full range of motion without nuchal rigidity, or vertebral point tenderness. No Meningismus. Cardiovascular: Regular rate and rhythm with a normal S1 and S2. No gallops, murmurs, or rubs. Normal PMI, no JVD. No pulse deficits. 23:19 Chest/axilla: Inspection: normal, Palpation: tenderness, that is moderate, of the left lateral anterior chest and left lateral posterior chest, Axilla: are normal, Lymph nodes: lymphadenopathy is not appreciated. Vital Signs: 23:21 BP 105 / 88; Pulse 84; Resp 18; Temp 99.2; Pulse Ox 95% on R/A; Weight 73.94 kg (R); kr2 Height 6 ft. (182.88 cm); Pain 8/10; 02/14 00:29 BP 110 / 90; Pulse 81; Resp 16; Pulse Ox 95% on R/A; kr2 01:20 BP 115 / 90; Pulse 78; Resp 16; Pulse Ox 98% on R/A; ao 02:21 BP 120 / 91; Pulse 74; Resp 18; Pulse Ox 98% on R/A; ao 03:30 BP 115 / 88; Pulse 84; Resp 18; Pulse Ox 97% on R/A; Pain 5/10; bs1 04:45 BP 109 / 80; Pulse 83; Resp 18; Pulse Ox 99% on R/A; Pain 4/10; bs1 05:35 BP 114 / 85; Pulse 86; Resp 18; Temp 98.0(O); Pulse Ox 98% on R/A; Pain 0/10; bs1 02/13 23:21 Body Mass Index 22.11 (73.94 kg, 182.88 cm) kr2 MDM: 02/13 23:07 Patient medically screened. [facility] 23:23 Data reviewed: vital signs, nurses notes, lab test result(s), EKG, radiologic studies, [facility] CT scan, plain films. 02/13 23:18 Order name: Basic Metabolic Panel; Complete Time: 01:37 marquise 02/13 23:18 Order name: BNP; Complete Time: 03:01 marquise 02/13 23:18 Order name: CBC with Diff; Complete Time: 03:01 marquise 02/13 23:18 Order name: Ckmb; Complete Time: 01:37 marquise 02/13 23:18 Order name: CPK; Complete Time: 01:37 marquise 02/13 23:18 Order name: LFT's; Complete Time: 01:37 marquise 02/13 23:18 Order name: Magnesium; Complete Time: 01:37 marquise 02/13 23:18 Order name: PT-INR; Complete Time: 01:37 marquise 02/13 23:18 Order name: Ptt, Activated; Complete Time: 01:37 marquise 02/13 23:18 Order name: Troponin (emerg Dept Use Only); Complete Time: 01:37 marquise 02/13 23:18 Order name: Lipase; Complete Time: 01:37 marquise 02/13 23:18 Order name: AMMONIA; Complete Time: 01:37 marquise 02/13 23:18 Order name: Type And Screen marquise 02/14 00:29 Order name: Urine Dipstick--Ancillary (enter results); Complete Time: 03:01 em1 02/13 23:18 Order name: XRAY Chest (1 view) [facility] 02/13 23:18 Order name: EKG; Complete Time: 23:19 [facility] 02/13 23:18 Order name: Cardiac monitoring; Complete Time: 00: [facility] 02/13 23:18 Order name: EKG - Nurse/Tech; Complete Time: 00:31 [facility] 02/13 23:18 Order name: IV Saline Lock; Complete Time: 00: [facility] 02/13 23:18 Order name: Labs collected and sent; Complete Time: 00: [facility] 02/13 23:18 Order name: O2 Per Protocol; Complete Time: 00: [facility] 02/13 23:18 Order name: O2 Sat Monitoring; Complete Time: 00: [facility] 02/13 23:18 Order name: CT Traumagram (Head C Spine CAP W Con) [facility] 02/14 00:32 Order name: Manual Differential; Complete Time: 03:01 EDMS 02/14 03:11 Order name: CONS Physician Consult; Complete Time: 04: EDOH 02/13 23:18 Order name: Urine Dipstick-Ancillary (obtain specimen); Complete Time: 00:28 [facility] Administered Medications: 02/14 00:15 Drug: NS 0.9% 1000 ml Route: IV; Rate: 25 ml/hr; Site: right antecubital; kr2 05:44 Follow up: IV Status: Infusion continued upon admission bs1 00:15 Drug: fentaNYL (PF) 25 mcg Route: IVP; Site: right antecubital; kr2 00:45 Follow up: Response: No adverse reaction; Pain is unchanged, physician notified kr2 00:15 Drug: Zofran 4 mg Route: IVP; Site: right antecubital; kr2 00:44 Follow up: Response: No adverse reaction; Nausea is decreased kr2 00:44 Drug: fentaNYL (PF) 25 mcg Route: IVP; Site: right antecubital; kr2 01:45 Follow up: Response: No adverse reaction ao 01:44 Drug: Magnesium Sulfate 1 grams Route: IVPB; Infused Over: 1 hrs; Site: right ao antecubital; 05:44 Follow up: IV Status: Completed infusion bs1 Disposition: 02/14/18 03:11 Hospitalization ordered by Bobbi Moe for Observation. Preliminary diagnosis are Fall due to bumping against object, Contusion of abdominal wall, Unspecified cirrhosis of liver, Ascites - tense, Hypomagnesemia, Anemia, unspecified, Fracture of one rib, left side - #11, Unspecified kidney failure - insufficency. - Bed requested for Telemetry/MedSurg (observation). - Status is Observation. bs1 - Condition is Stable. - Problem is new. - Symptoms are unchanged. UTI on Admission? No Signatures: Dispatcher [employer] Noemi Ji, RN RN Stanislaw Schmitz MD MD cha Ortiz, Alex, RN RN Elena Fox RN RN kr2 Pebbles Serna, RN RN bs1
--- NOTE | 2018-02-14 03:12 | ER ---
Nurse's Notes [facility] Name: Abhishek Davis Age: 52 yrs Sex: Male : 1965 Arrival Date: 02/13/2018 Time: 23:02 Bed 20 Private MD: Diagnosis: Fall due to bumping against object;Contusion of abdominal wall;Unspecified cirrhosis of liver;Ascites-tense;Hypomagnesemia;Anemia, unspecified;Fracture of one rib, left side-#11;Unspecified kidney failure-insufficency Presentation: 02/13 23:17 Presenting complaint: Patient states: he is supposed to have paracentesis on Friday kr2 but was told that if he became to uncomfortable or swollen to come to the ER. Reports he also fell into the edge of a couch, earlier today, hitting the left side of his abdomen and started hurting more this evening. Transition of care: patient was not received from another setting of care. Onset of symptoms was February 13, 2018. Initial Sepsis Screen: Does the patient meet any 2 criteria? No. Patient's initial sepsis screen is negative. Does the patient have a suspected source of infection? No. Patient's initial sepsis screen is negative. Care prior to arrival: None. 23:17 Method Of Arrival: Wheelchair kr2 23:17 Acuity: KACEY 3 kr2 Triage Assessment: 23:25 General: Appears in no apparent distress. uncomfortable, well nourished, Behavior is kr2 calm, cooperative, appropriate for age. Pain: Complains of pain in abdomen Pain does not radiate. Pain currently is 8 out of 10 on a pain scale. Quality of pain is described as pressure, sharp, stabbing, tender, Is continuous, Alleviated by paracentesis Aggravated by increased activity. EENT: Nares are clear bilaterally Oral mucosa is dry. Neuro: Level of Consciousness is awake, alert, obeys commands, Oriented to person, place, time, situation, Appropriate for age. Cardiovascular: Patient's skin is warm and dry. Respiratory: Airway is patent Respiratory effort is even, unlabored, Respiratory pattern is regular, symmetrical, Parent/caregiver reports the patient having shortness of breath on exertion. GI: Abdomen is round noted to have ascites, Abdomen is tender to palpation in left upper quadrant and left lower quadrant. Derm: Skin is intact, Skin is jaundiced. Musculoskeletal: Circulation, motion, and sensation intact. Historical: - Allergies: 23:24 No Known Allergies; kr2 - Home Meds: 23:24 Hydrocortisone Oral [Active]; Hydroxyzine Oral [Active]; Lactulose Oral 3 times per day kr2 [Active]; mag oxide [Active]; midodrine Oral 3 times per day [Active]; ursodiol 300 mg Oral cap 2 cap 2 times per day [Active]; Xifaxan 550 mg Oral tab 1 tab 2 times per day [Active]; - PMHx: 23:24 Anemia; Cirrhosis; Umbilical hernia; renal insufficiency; kr2 - PSHx: 23:24 Hernia repair; kr2 - Immunization history:: Adult Immunizations unknown. - Social history:: Smoking status: Patient/guardian denies using tobacco. - Family history:: not pertinent. Screenin:24 Abuse screen: Denies threats or abuse. Denies injuries from another. Nutritional kr2 screening: No deficits noted. Tuberculosis screening: No symptoms or risk factors identified. Fall Risk Gait- Weak (10 pts.). Assessment: 23:20 Reassessment: See triage assessment. kr2 02/14 00:33 Reassessment: Patient appears in no apparent distress at this time. Patient and/or kr2 family updated on plan of care and expected duration. Pain level reassessed. Patient is alert, oriented x 3, equal unlabored respirations, skin warm/dry/pink. 00:42 Reassessment: Patient appears in no apparent distress at this time. Patient states his kr2 pain has not improved. Medicated again for pain as ordered, See DEC. 01:20 General: Received report from Elena Antonio RN. Patient AOX3 VS WNL. ao 01:20 Pain: Denies pain. Neuro: Level of Consciousness is awake, alert, obeys commands, ao Oriented to person, place, time, situation, Appropriate for age Moves all extremities. Speech is normal, Facial symmetry appears normal, Pupils are PERRLA, Cardiovascular: Patient's skin is warm and dry. Respiratory: Airway is patent Respiratory effort is even, unlabored, Respiratory pattern is regular, symmetrical. GI: Abdomen is distended, noted to have ascites. : No signs and/or symptoms were reported regarding the genitourinary system. EENT: No signs and/or symptoms were reported regarding the EENT system. Derm: No signs and/or symptoms reported regarding the dermatologic system. Musculoskeletal: No signs and/or symptoms reported regarding the musculoskeletal system. 02:20 Reassessment: Patient appears in no apparent distress at this time. Patient and/or ao family updated on plan of care and expected duration. Pain level reassessed. Patient is alert, oriented x 3, equal unlabored respirations, skin warm/dry/pink. 03:01 Neuro: Level of Consciousness is awake, alert, obeys commands, Oriented to person, bs1 place, time, situation, Appropriate for age Moves all extremities. Speech is normal. Cardiovascular: Denies chest pain, palpitations, shortness of breath, Patient's skin is warm and dry. Respiratory: Airway is patent Trachea midline Respiratory effort is even, unlabored, Respiratory pattern is regular, symmetrical, Breath sounds are clear bilaterally. GI: Abdomen is distended, noted to have ascites, Bowel sounds hypoactive in right upper quadrant, left upper quadrant, right lower quadrant and left lower quadrant. : No signs and/or symptoms were reported regarding the genitourinary system. EENT: No signs and/or symptoms were reported regarding the EENT system. Derm: No signs and/or symptoms reported regarding the dermatologic system. Musculoskeletal: No signs and/or symptoms reported regarding the musculoskeletal system. Circulation, motion, and sensation intact. Capillary refill < 3 seconds. 04:30 Reassessment: No changes from previously documented assessment. Patient and/or family bs1 updated on plan of care and expected duration. Pain level reassessed. Patient is alert, oriented x 3, equal unlabored respirations, skin warm/dry/pink. 05:39 Reassessment: Patient appears in no apparent distress at this time. No changes from bs1 previously documented assessment. Patient and/or family updated on plan of care and expected duration. Pain level reassessed. Patient is alert, oriented x 3, equal unlabored respirations, skin warm/dry/pink. Vital Signs: 02/13 23:21 BP 105 / 88; Pulse 84; Resp 18; Temp 99.2; Pulse Ox 95% on R/A; Weight 73.94 kg (R); kr2 Height 6 ft. (182.88 cm); Pain 8/10; 02/14 00:29 BP 110 / 90; Pulse 81; Resp 16; Pulse Ox 95% on R/A; kr2 01:20 BP 115 / 90; Pulse 78; Resp 16; Pulse Ox 98% on R/A; ao 02:21 BP 120 / 91; Pulse 74; Resp 18; Pulse Ox 98% on R/A; ao 03:30 BP 115 / 88; Pulse 84; Resp 18; Pulse Ox 97% on R/A; Pain 5/10; bs1 04:45 BP 109 / 80; Pulse 83; Resp 18; Pulse Ox 99% on R/A; Pain 4/10; bs1 05:35 BP 114 / 85; Pulse 86; Resp 18; Temp 98.0(O); Pulse Ox 98% on R/A; Pain 0/10; bs1 02/13 23:21 Body Mass Index 22.11 (73.94 kg, 182.88 cm) kr2 ED Course: 02/13 23:02 Patient arrived in ED. es 23:07 Stanislaw Stratton MD is Attending Physician. marquise 23:16 Elena Antonio, NIYA is Primary Nurse. kr2 23:21 Triage completed. kr2 23:28 Arm band placed on. kr2 23:28 Patient has correct armband on for positive identification. Bed in low position. Call kr2 light in reach. Side rails up X2. bottom stainer on. Pulse ox on. NIBP on. Door closed. Warm blanket given. Head of bed elevated. 23:50 Missed attempt(s): 20 gauge in right antecubital area. Bleeding controlled, band aid kr2 applied, catheter tip intact. 23:52 Radiology exam delayed due to lab results not completed at this time. (BUN/Creatinine). 23:53 X-ray completed. Portable x-ray completed in exam room. Patient tolerated procedure jw2 well. 23:55 Inserted saline lock: 20 gauge in right antecubital area, using aseptic technique. kr2 Blood collected. 23:57 XRAY Chest (1 view) In Process Unspecified. EDMS 02/14 00:15 Urine collected: clean catch specimen, adolfo colored. kr2 01:57 CT Traumagram (Head C Spine CAP W Con) In Process Unspecified. EDMS 03:04 Bobbi Moe MD is Hospitalizing Provider. marquise 05:43 No provider procedures requiring assistance completed. Patient admitted, IV remains in bs1 place. intact. Administered Medications: 00:15 Drug: NS 0.9% 1000 ml Route: IV; Rate: 25 ml/hr; Site: right antecubital; kr2 05:44 Follow up: IV Status: Infusion continued upon admission bs1 00:15 Drug: fentaNYL (PF) 25 mcg Route: IVP; Site: right antecubital; kr2 00:45 Follow up: Response: No adverse reaction; Pain is unchanged, physician notified kr2 00:15 Drug: Zofran 4 mg Route: IVP; Site: right antecubital; kr2 00:44 Follow up: Response: No adverse reaction; Nausea is decreased kr2 00:44 Drug: fentaNYL (PF) 25 mcg Route: IVP; Site: right antecubital; kr2 01:45 Follow up: Response: No adverse reaction ao 01:44 Drug: Magnesium Sulfate 1 grams Route: IVPB; Infused Over: 1 hrs; Site: right ao antecubital; 05:44 Follow up: IV Status: Completed infusion bs1 Outcome: 03:11 Decision to Hospitalize by Provider. marquise 05:43 Admitted to Med/surg accompanied by jessica, via stretcher, room 205, with chart, Report bs1 called to NIYA Berrios 05:43 Condition: stable 05:43 Instructed on the need for admit, Demonstrated understanding of instructions. 05:44 Patient left the ED. bs1 Signatures: Dispatcher [employer] Stanislaw Curry MD MD cha Salyer, Ana Canela Alex RN Kia Contreras Karey RN RN Pebbles Lorenzo RN RN bs1
--- NOTE | 2018-02-14 05:28 | P.HP ---
Certification for Inpatient Patient admitted to: Observation With expected LOS: <2 Midnights Practitioner: I am a practitioner with admitting privileges, knowledge of patient current condition, hospital course, and medical plan of care. Services: Services provided to patient in accordance with Admission requirements found in Title 42 Section 412.3 of the Code of Federal Regulations Patient History Date of Service: 02/14/18 Reason for admission: severe ascites History of Present Illness: Mr Davis is a 52 yars old male with history of alcoholic liver cirrhosis, anemia , CKD, who suppose to have done a outpatient paracentesis 4 days ago, however, since his abdominal girth was significant big, he was not easy to move and deferred it. Today he was fell at home over his left side, then he start having significant pain over the left rib cage. He denied chest pain or dizziness. He is more SOB than usual, due to his ascites. At arrival he was afebrile, WBC WNL , bands 1%. CT head/cervical/chest/abd/pelvis remarkable for left 11th rib fracture, no pneumothorax. Allergies No Known Drug Allergies Allergy (Verified 12/06/17 02:55) Unknown No Known Allergies Allergy (Uncoded 08/23/17 06:55) Unknown Home Medications: Diphenhydramine [Benadryl*] 25 mg PO Q6H PRN #30 tab 10/09/17 Lactulose 30 ml PO TID #500 ml 11/20/17 Midodrine HCl 10 mg PO TID #90 tablet 11/20/17 Ondansetron HCl [Zofran] 4 mg PO Q8H PRN #15 tablet 11/20/17 Rifaximin [Xifaxan] 550 mg PO BID #60 tablet 11/20/17 Ursodiol 2 cap PO BID #60 capsule 11/20/17 Magnesium Oxide [Mag 0X Tab] 400 mg PO BID #60 tab 12/07/17 Furosemide [Lasix] 40 mg PO DAILY 02/05/18 - Past Medical/Surgical History Diabetic: No -: kidney insufficiency -: liver cirrhosis -: anemia -: jaundice -: alchohol withdrawal -: left wrist sx to remove cyst -: hernia repair -: sx on left lower leg - Family History Mother -: GI disease, Liver disease Notes: mother because of cirrhosis Father -: Diabetes - Social History Alcohol use: No CD- Drugs: No Caffeine use: Yes Place of Residence: Home Review of Systems 10-point ROS is otherwise unremarkable Physical Examination - Physical Exam General: Alert, In no apparent distress HEENT: Atraumatic, PERRLA, Mucous membr. moist/pink, EOMI, Sclerae nonicteric Neck: Supple, 2+ carotid pulse no bruit, No LAD, Without JVD or thyroid abnormality Respiratory: Diminished (bilateral), Crackles/rales (bibasilar scattered rales) Cardiovascular: Regular rate/rhythm, Normal S1 S2 Gastrointestinal: Normal bowel sounds, Ascites, Tenderness (diffuse tenderness, but more localized over left flank) Musculoskeletal: No tenderness Integumentary: No rashes Neurological: Normal speech, Normal strength at 5/5 x4 extr, Normal tone, Normal affect Lymphatics: No axilla or inguinal lymphadenopathy - Studies Laboratory Data (last 24 hrs) 02/13/18 23:55: PT 22.0 H, INR 1.85, APTT 37.7 H 02/13/18 23:55: WBC 3.9 L, Hgb 8.6 L, Hct 24.9 L, Plt Count 88 L D 02/13/18 23:55: B-Natriuretic Peptide 33 02/13/18 23:55: Sodium 131 L, Potassium 3.8, BUN 27 H, Creatinine 1.40 H, Glucose 112, Magnesium 1.6 L, Total Bilirubin 5.1 H*, AST 34, ALT 16, Alkaline Phosphatase 108, Lipase 23 Assessment and Plan - Problems (Diagnosis) (1) Rib fracture Current Visit: Yes Status: Acute Qualifiers: Encounter type: initial encounter Rib fracture type: single rib Fracture type: closed Laterality: left Qualified Code(s): S22.32XA - Fracture of one rib, left side, initial encounter for closed fracture (2) Dyspnea Onset Date: 06/13/17 Current Visit: No Status: Acute Qualifiers: Dyspnea type: shortness of breath Qualified Code(s): R06.02 - Shortness of breath; R06.00 - Dyspnea, unspecified; R06.01 - Orthopnea (3) Anemia Onset Date: 03/26/17 Current Visit: No Status: Chronic Qualifiers: Anemia type: unspecified type Qualified Code(s): D64.9 - Anemia, unspecified (4) Ascites Onset Date: 11/20/17 Current Visit: No Status: Chronic Qualifiers: Ascites type: due to alcoholic cirrhosis (5) Chronic renal disease Onset Date: 12/11/17 Current Visit: No Status: Chronic Qualifiers: Chronic kidney disease stage: stage 3 (moderate) Qualified Code(s): N18.3 - Chronic kidney disease, stage 3 (moderate) (6) Hyponatremia Onset Date: 06/13/17 Current Visit: No Status: Chronic - Plan Mr Davis will be admitted under observation due to an US guided paracentesis. According to his , he is requiring ascetic fluid remove every week. Will order the procedure today. Give pain medication for broken rib, He may go home after the procedure and be followed up by his civilian jail officer. - Advance Directives Does patient have a Living Will: No Does patient have a Durable POA for Healthcare: No - Code Status/Comfort Care Code Status Assessed: Yes Code Status: Full Code
[2018-02-14] MEDS ORDERED: ONDANSETRON 4 MG/2 ML VIAL IV PRN (05:49)
[2018-02-14] MEDS ORDERED: TRAMADOL HCL 50 MG TAB PO PRN (05:49)
--- NOTE | 2018-02-14 07:15 | EKG ---
Test Date: 2018-02-13 Test Time: 23:34:32 [employer] Applicator: KOBI MEASUREMENT RESULTS: Intervals: Rate: 82 IA: 166 QRSD: 96 QT: 396 QTc: 462 [place]: P: 54 IA: 166 QRS: 1 T: 0 INTERPRETIVE STATEMENTS: Normal sinus rhythm Prolonged QT Abnormal ECG Compared to ECG 12/27/2017 00:37:28 Prolonged QT interval now present Myocardial infarct finding no longer present Electronically Signed On 02-14-18 07:14:42 CDT by Ghanshyam Young
[2018-02-14] MEDS ORDERED: Magnesium Sulfate 2gm IVPB 2 G/50 ML BAG IV ONE (11:00)
--- NOTE | 2018-02-14 12:08 | RAD REPORT ---
EXAM DESCRIPTION: CT - Head C Spine Cap Jyoti Britton - 02/14/2018 9:05 am CLINICAL HISTORY: Head and neck injury with chest and abdominal pain status post fall. Head and neck pain . TECHNIQUE: Computed axial tomography of the head and cervical spine was obtained Computed axial tomography of the chest, abdomen and pelvis was obtained. 100 cc Isovue-300 was given intravenously coronal and sagittal reconstruction was performed.A preliminary report was generated by [employer] in reviewed prior to this dictation All CT scans are performed using dose optimization technique as appropriate and may include automated exposure control or mA/KV adjustment according to patient size. COMPARISON: CT abdomen December 2017 FINDINGS: An intracranial bleed is not seen. The ventricles are normal in caliber. An extra-axial fl uid collection is not noted. A cervical fracture is not seen. No dislocation is seen. A mediastinal hematoma is not noted. A pleural effusion is not present. A lung contusion is not seen. A nondisplaced fracture involves the posterior left eleventh rib. Gallstones are present without gallbladder wall thickening A cirrhotic liver is present. The spleen, pancreas, adrenals and kidneys are unremarkable. A large amount of ascites is present. An umbilical hernia contains fluid IMPRESSION: 1. No acute intracranial abnormality is seen 2. A cervical fracture is not visualized. If the patient continues have symptoms to suggest intracran ial/spinal cord pathology then MRI would be recommended. 3. Nondisplaced fracture involving the posterior left eleventh rib without a pneumothorax 4. No traumatic injury involving the abdomen/pelvis
--- NOTE | 2018-02-14 12:09 | RAD REPORT ---
EXAM DESCRIPTION: Elizabeth Single View02/13/2018 11:57 pm CLINICAL HISTORY: Abdominal pain COMPARISON: December 2017 FINDINGS: The lungs appear clear of acute infiltrate. The heart is normal size. IMPRESSION: No acute abnormalities displayed
[2018-02-14] MEDS: HYDROCODONE/APAP 7.5/325 MG TAB PO PRN ×2 (13:14→19:44)
[2018-02-14] MEDS ORDERED: DIPHENHYDRAMINE 25 MG TAB/CAP PO ONE (19:15)
[2018-02-15] MEDS: HYDROCODONE/APAP 7.5/325 MG TAB PO PRN ×3 (01:36→18:32)
[2018-02-15] MEDS ORDERED: DIPHENHYDRAMINE 25 MG TAB/CAP PO PRN (01:45)
[2018-02-15] MEDS ORDERED: HOME MED 1 EA UNK (Ondansetron Hcl [Zofran] 4 MG) PO PRN (10:53)
[2018-02-15] MEDS ORDERED: ONDANSETRON 4 MG (ODT) TAB PO PRN (12:24)
[2018-02-15] MEDS: DIPHENHYDRAMINE 25 MG TAB/CAP PO PRN ×2 (12:32→18:33)
[2018-02-15] MEDS: LACTULOSE 20 GM/30 ML UCUP PO SCH ×2 (13:25→20:58)
[2018-02-15] MEDS: MIDODRINE HCL 5 MG TABLET PO SCH ×2 (13:25→20:58)
[2018-02-15] MEDS: URSODIOL 300 MG CAP PO SCH ×2 (13:25→20:58)
[2018-02-15] MEDS ORDERED: MIDODRINE HCL 5 MG PO SCH (14:00)
[2018-02-15] MEDS ORDERED: HOME MED 1 EA UNK (Lactulose [Lactulose] 30 ML) PO SCH (14:00)
[2018-02-15] MEDS: MAGNESIUM OXIDE 400 MG TAB PO SCH (20:58)
[2018-02-15] MEDS: Rifaximin 550 MG Tab PO SCH (20:58)
[2018-02-16] MEDS: HYDROCODONE/APAP 7.5/325 MG TAB PO PRN (01:06)
[2018-02-16] MEDS: DIPHENHYDRAMINE 25 MG TAB/CAP PO PRN ×2 (01:06→13:35)
[2018-02-16 05:43] VITALS: BMI 24.9
[2018-02-16 05:44] LABS: Albumin 2.9 g/dL (3.2-5.5); Bilirubin Total 4.1 mg/dL (0.3-1.2); Potassium 3.9 mEq/L (3.6-5.0); Protein, Total 5.3 g/dL (6.0-8.3)
[2018-02-16 05:48] LABS: Absolute Lymphocytes (CBC) 0.6 K/uL (0.7-4.9); Absolute Monocytes 0.6 K/uL (0.1-1.3); Basophils % 0.4 % (0-1.3); Eosinophils % 6.5 % (0-4.4); Hematocrit 22.9 % (39.6-49.0); Lymphocytes % 17.2 % (15.3-44.8); MCH 33.7 pg (27.0-35.0); MCV 97.4 fL (80-100); MPV 6.9 fL (7.6-11.3); RBC Red Blood Cell Count 2.35 M/uL (4.33-5.43)
[2018-02-16] MEDS: LACTULOSE 20 GM/30 ML UCUP PO SCH ×2 (09:00→13:22)
[2018-02-16] MEDS ORDERED: CITALOPRAM 10 MG TABLET PO SCH (09:00)
[2018-02-16] MEDS: Rifaximin 550 MG Tab PO SCH (09:00)
[2018-02-16] MEDS: MAGNESIUM OXIDE 400 MG TAB PO SCH (09:00)
[2018-02-16] MEDS ORDERED: MULTIVITAMIN TAB PO SCH (09:00)
[2018-02-16] MEDS ORDERED: FUROSEMIDE 40 MG TABLET PO SCH (09:00)
[2018-02-16] MEDS: URSODIOL 300 MG CAP PO SCH ×2 (09:00→13:22)
[2018-02-16] MEDS: MIDODRINE HCL 5 MG TABLET PO SCH ×2 (09:00→13:23)
--- NOTE | 2018-02-16 09:48 | PN ---
Subjective: Patient currently lying in bed. He is itching all over. He is sleepy, but arousable. His at the bedside. They think he would need to have more frequent paracentesis than scheduled by primary care physician. They are anxious to have that done tomorrow. Physical Examination: Vital Signs: Currently vital signs; blood pressure is 103/72, respiratory rate 18, pulse 75, tempera ture 97.8, saturating 96% on room air. General: The patient is a sleepy but arousable. He is really. Does not look in severe distress. HEENT: Atraumatic, normocephalic. PERRLA. Oral mucosa is moist. Icteric sclera. Neck: Supple. No JVD. No carotid bruits. Chest: Clear to auscultation with crackles in the bases. Heart: Regular rate and rhythm. S1, S2 normal. No gallop or murmur. Abdomen: Soft with shifting dullness and diffuse tenderness. Extremities: No clubbing or cyanosis. Trace edema. Neurologic: Grossly intact. Cranial nerve exam 2 through 12 intact. Normal sensation. Normal refl exes. Normal muscle strength. Laboratory Data: Labs not done today. They are all pending. Assessment And Plan: 1.Fall with subsequent rib fracture. It is nondisplaced, involving the posterior left 11th rib with out pneumothorax. Continue symptomatic treatment with pain control. 2.Liver cirrhosis with recurrent ascites. The patient will need a paracentesis tomorrow. I resumed his Lasix 40 mg once a day. The patient will probably benefit from Aldactone added to his regimen b efore discharge. 3.History of hepatic encephalopathy. We will resume patient on his rifaximin and ursodiol. 4.Itchiness. The patient will be resumed on his ursodiol 600 mg t.i.d. and also Benadryl 25 mg as n eeded. 5.History of depression. Continue Celexa. 6.Hypomagnesemia, replaced magnesium. 7.Chronic renal insufficiency. Labs today pending. 8.Elevated liver function tests secondary to liver cirrhosis, labs again pending, so I do not know i f they are trending up or down. 9.Discharge plan hopefully after his paracentesis in a.m. YAMILET/ELINA Voice ID: [id number] Report ID: [id number]
[2018-02-16] MEDS ORDERED: ALBUMIN HUMAN 25% 50 ML IV ONE (11:00)
--- NOTE | 2018-02-16 11:22 | RAD REPORT ---
EXAM DESCRIPTION: US - Paracentesis Proc Guidance - 02/16/2018 10:30 am CLINICAL HISTORY: Recurrent ascites, liver failure COMPARISON: Multiple prior paracentesis procedures. TECHNIQUE: The patient presents for ultrasound-guided paracentesis. The procedure, risks and altern atives were discussed with the patient in detail. Oral and written consent were obtained. Time out p rocedure was performed. The patient had no contraindicated allergy or medication history. Preliminary sonographic evaluation identified a right lower quadrant access site. The skin and deepe r tissues were anesthetized with 1 percent lidocaine. Under direct sonographic visualization, a para centesis catheter was advanced into the peritoneal cavity. Intraperitoneal placement was confirmed. A pproximately 15 mL of ascites obtained for requested laboratory studies. Large volume drainage was in itiated with 12 liters of ascites removed. At the conclusion of the procedure, catheter was withdrawn and a bandage placed at the puncture site. Patient was transferred back to the floor for continued c are and albumin infusion. IMPRESSION: Ultrasound-guided paracentesis as detailed.
[2018-02-16 11:39] VITALS: O2SAT 96
[2018-02-16 11:44] LABS: Appearance SLT. TURBID (CLEAR); Body Fluid Source PERITONEAL; Body Fluid WBC 26 /mm^3; Color of fluid Yellow (COLORLESS)
[2018-02-16 12:44] VITALS: BP 102/59; TEMP 98.2
[2018-02-16] MEDS ORDERED: ALBUMIN HUMAN 25% 100 ML IV ONE (12:44)
--- NOTE | 2018-02-16 17:24 | P.DS ---
Admission Date: 02/14/18 Discharge Date: 02/16/18 Primary Care Provider: Carlos Payne Disposition: ROUTINE DISCHARGE Discharge Condition: GOOD Reason for Admission: severe ascites Consultations: Radiology Procedures: Paracentesis Brief History of Present Illness: Mr Davis is a 52 yars old male with history of alcoholic liver cirrhosis, anemia , CKD, who suppose to have done a outpatient paracentesis 4 days ago, however, since his abdominal girth was significant big, he was not easy to move and deferred it. Today he was fell at home over his left side, then he start having significant pain over the left rib cage. He denied chest pain or dizziness. He is more SOB than usual, due to his ascites. At arrival he was afebrile, WBC WNL , bands 1%. CT head/cervical/chest/abd/pelvis remarkable for left 11th rib fracture, no pneumothorax. Hospital Course: Overall during the hospital stay patient remained stable Patient was initially admitted to the hospital for significant ascites. Patient does get outpatient paracentesis done however his schedule was not told to stay and he started feeling short of breath and worsening of his fluid accumulation since Friday morning and thus was to come to the ER and the his fluid tapped. Patient had a paracentesis done here in the hospital today with 12 L of fluid that was obtained by radiology. Patient tolerated the procedure well and this patient was discharged home under stable condition. Patient did receive 2 rounds of albumin 12.5 here in the hospital his vital signs were stable and patient had no other complaints to offer. Patient was asked to follow up with his primary care provider to schedule paracentesis twice weekly now and patient demonstrated understanding. Patient was thus discharged home under stable condition and was asked to follow up with his PCP to repeat lab work and to set up paracentesis 2 times in a Week Vital Signs/Physical Exam: Temp Pulse Resp BP Pulse Ox 98.2 F 93 H 16 102/59 L 98 02/16/18 12:00 02/16/18 12:00 02/16/18 12:00 02/16/18 12:02/16/18 12:00 General: Alert, In no apparent distress HEENT: Atraumatic, Scleral icterus Neck: Supple Respiratory: Clear to auscultation bilaterally, Normal air movement Cardiovascular: Regular rate/rhythm, Normal S1 S2 Gastrointestinal: Normal bowel sounds, Distended, Succussion splash, Ascites Musculoskeletal: No tenderness Integumentary: No rashes Neurological: Normal speech, Normal tone, Normal affect Lymphatics: No axilla or inguinal lymphadenopathy Laboratory Data at Discharge: WBC 3.4 K/uL (4.3-10.9) L 02/16/18 04:35 Hgb 7.9 g/dL (13.6-17.9) L* 02/16/18 04:35 Hct 22.9 % (39.6-49.0) L 02/16/18 04:35 Plt Count 96 K/uL (152-406) L 02/16/18 04:35 PT 22.0 SECONDS (9.5-12.5) H 02/13/18 23:55 INR 1.85 02/13/18 23:55 APTT 37.7 SECONDS (24.3-36.9) H 02/13/18 23:55 Sodium 126 mEq/L (135-145) L 02/16/18 04:35 Potassium 3.9 mEq/L (3.6-5.0) 02/16/18 04:35 BUN 25 mg/dL (6-20) H 02/16/18 04:35 Creatinine 1.39 mg/dL (0.61-1.24) H 02/16/18 04:35 Glucose 84 mg/dL (65-120) 02/16/18 04:35 Magnesium 1.6 mg/dL (1.8-2.5) L 02/13/18 23:55 Total Bilirubin 4.1 mg/dL (0.3-1.2) H 02/16/18 04:35 AST 31 IU/L (10-42) 02/16/18 04:35 ALT 16 IU/L (10-60) 02/16/18 04:35 Alkaline Phosphatase 111 IU/L (42-121) 02/16/18 04:35 B-Natriuretic Peptide 33 pg/ml (<=100) 02/13/18 23:55 Lipase 23 U/L (22-51) 02/13/18 23:55 Home Medications: Diphenhydramine [Benadryl*] 25 mg PO Q6H PRN #30 tab 10/09/17 Lactulose 30 ml PO TID #500 ml 11/20/17 Rifaximin [Xifaxan] 550 mg PO BID #60 tablet 11/20/17 Magnesium Oxide [Mag 0X*] 400 mg PO BID #60 tab 12/07/17 Furosemide [Lasix*] 40 mg PO DAILY 02/05/18 Citalopram [Celexa*] 10 mg PO DAILY 02/14/18 Midodrine HCl 5 mg PO TID 02/14/18 Multivitamin/Iron/Folic Acid [Centrum Adults Tablet] 1 tab PO DAILY 02/14/18 Ondansetron HCl [Zofran] 4 mg PO Q8HP PRN 02/14/18 Ursodiol 2 cap PO TID 02/14/18 Diet: Regular Activity: Ad dell Followup: Carlos Payne DO [Primary Care Provider] - 1 Week
== END 2018-02-16 14:25 | disposition home or self-care (01) ==
LOC: ER 22:59 → ERHOLD 02-14 03:09 → 2ND 02-14 05:29
PROVIDERS: ADMIT Internal Medicine; ATTEND Internal Medicine
PROC: 0W9G3ZX Drainage of Peritoneal Cavity, Percutaneous Approach, Diagnostic (ICD-10-PCS; principal; 2018-02-16)
PROC: BW40ZZZ Ultrasonography of Abdomen (ICD-10-PCS; 2018-02-16)
DX: K70.31 Alcoholic cirrhosis of liver with ascites (principal); S22.32XA Fracture of one rib, left side, initial encounter for closed fracture; W18.30XA Fall on same level, unspecified, initial encounter; Y92.009 Unspecified place in unspecified non-institutional (private) residence as the place of occurrence of the external cause; N18.3 Chronic kidney disease, stage 3 (moderate); D64.9 Anemia, unspecified; E87.1 Hypo-osmolality and hyponatremia; F32.9 Major depressive disorder, single episode, unspecified; E83.42 Hypomagnesemia
CPT/HCPCS: 36415; 49083; 70450; 71045; 71260; 72125; 74177; 80048; 80053; 80076; 81003; 82140; 82550; 82553; 83690; 83735; 83880; 84484; 85025; 85610; 85730; 86850; 86900; 86901; 89050; 93005; 96361; 96365; 96366; 96375; 99285; G0378; J3475; P9047; Q9967

== ENCOUNTER 2018-03-09 10:37 | Emergency (ER) | payer MEDICAID ==
--- OUTSIDE RECORDS SUMMARY | 2018-03-09 10:41 | XMS REPORT | Clinical Summary ---
:1965 Author Organization [facility] Address [address] [place] [address] Phone Care Team Providers Name Role Phone Unavailable Primary Care Provider Unavailable Allergies No Known Allergies Current Medications Prescription Sig. Disp. Refills Start Date End Date Status citalopram (CELEXA) Take 10 mg by Active 10 MG mouth daily. tabletIndications: Alcoholic cirrhosis of liver with ascites (HCC) furosemide (LASIX) 40 Take 1 tablet 30 tablet 3 02/03/2018 Active MG tabletIndications: (40 mg total) 9 Alcoholic cirrhosis by mouth of liver with ascites daily. (HCC), Portal hypertensive gastropathy (HCC) ursodiol (ACTIGALL) Take 300 mg Active 300 mg capsule by mouth 3 (three) times daily. lactulose (CEPHULAC) Take 10 g by Active 10 gram packet mouth 3 (three) times daily. midodrine Take 5 mg by Active (PROAMATINE) 5 MG mouth 3 tablet (three) times daily. magnesium oxide Take 400 mg Active (MAG-OX) 400 mg by mouth 2 tablet (two) times daily. guyzcjxw-hihk-lfh-fol Take by Active ic acid mouth. (FHIBKAVBJVHE-MXGW-KY NERALS-FOLIC ACID) 3,500-18-0.4 unit-mg-mg Chew diphenhydrAMINE Take 25 mg by Active (BENADRYL) 25 mg mouth tablet nightly. ondansetron (ZOFRAN) Take 4 mg by Active 4 MG tablet mouth 2 (two) times daily as needed for Nausea. multivitamin Take 1 tablet 90 tablet 3 02/18/2017 (THERAGRAN) tablet by mouth 8 daily. folic acid (FOLVITE) Take 1 tablet 90 tablet 3 02/18/2017 1 MG tablet (1 mg total) 8 by mouth daily. furosemide (LASIX) 20 Take 1 tablet 30 tablet 2 02/18/2017 Discontinued MG tablet (20 mg total) 8 by mouth daily. lactulose (CHRONULAC) Take 20 g by Discontinued 20 gram/30 mL mouth 3 8 solutionIndications: (three) times Alcoholic cirrhosis daily. of [...] 4 tablet 0 09/05/2017 (CIPRO) 500 MG tablet (500 mg 7 total) by mouth once a week for 28 days. furosemide (LASIX) 20 Take 1 tablet 30 tablet 0 09/06/2017 Discontinued MG tablet (20 mg total) 8 by mouth daily. lactulose (CHRONULAC) Take 30 mLs 3000 mL 0 09/05/2017 Discontinued 20 gram/30 mL (20 g total) 8 solution by mouth 3 (three) times daily. [...] 30 tablet 1 01/06/2018 (CORTEF) 20 MG tablet (20 mg total) 8 by mouth daily for 30 days. hydrocortisone Take 1 tablet 30 tablet 1 01/06/2018 (CORTEF) 10 MG tablet (10 mg total) 8 by mouth nightly for 30 days. lactulose (CHRONULAC) Take 30 mLs 2700 mL 1 01/06/2018 Discontinued 20 gram/30 mL (20 g total) 8 solution by mouth 3 (three) times daily for 30 days. ursodiol (ACTIGALL) Take 300 mg Discontinued 300 mg capsule by mouth 3 8 (three) times daily. ursodiol (ACTIGALL) Take 1 90 capsule 1 01/06/2018 300 mg capsule capsule (300 8 mg total) by mouth 3 (three) times daily for 30 days. lactulose (CHRONULAC) Take 30 mLs 300 mL 1 01/08/2018 Discontinued 20 gram/30 mL (20 g total) 8 solutionIndications: by mouth 3 Alcoholic cirrhosis (three) times of liver with ascites daily. (HCC) pantoprazole Take 1 tablet 30 tablet 1 01/08/2018 (PROTONIX) 40 MG (40 mg total) 8 tabletIndications: by mouth Alcoholic cirrhosis daily for 30 of liver with ascites days. (HCC) Active Problems Problem Noted Date Risk for falls 03/03/2018 CAD (coronary artery disease) 02/23/2018 Pancytopenia (HCC) 01/05/2018 Sarcopenia 01/05/2018 Portal hypertensive [...] Specialty Care Team Description Telephone Transplant Hepatology Meggan Erickson Appointment 8 E (Scheduled 03/[address] scan w/pts spouse. Itinerary mailed.) Telephone Transplant Hepatology Ade Arriaga Follow-up 8 C RN Orders Only Transplant Hepatology Ade Arriaga Abnormal CT scan , 8 C, RN chest (Primary Dx) Hospital Encounter Respiratory Therapy Woody Malave Abnormal CT scan, 8 MD Noman chest Follow-Up Transplant Hepatology Michael Davison, Alcoholic cirrhosis 8 MD of liver with ascites Woody Malave (HCC) (Primary MD Noman Dx);Risk for falls;Pre-transplant evaluation for liver transplant Telephone Transplant Hepatology Meggan Erickson Appointment ( LVM. 8 E Calling to confirm 03/03 clinic appt.) Telephone Transplant Hepatology Meggan Erickson Appointment 8 E (Confirmed 03/03 clinic appt w/spouse (pt will arrive at 10:30) also scheduled 2 pm pft on that day. Itinerary mailed. ) Telephone Central Scheduling Meggan Erickson 8 E Orders Only Transplant Hepatology Ade Arriaga Abnormal CT scan , 8 CNIYA chest (Primary Dx) Hospital Encounter Rinku Abnormal CT scan, 8 MD Tom chest Procedure Pass 8 Surgery Rinku R & L CATH / CORONARY 8 MD Tom ANGIOS (+/- LV) Orders Only Transplant Hepatology Ade Arriaga Encounter for 8 C RN pre-transplant evaluation for liver transplant (Primary Dx);Abnormal CT scan, chest;Screening for malignant neoplasm Telephone Transplant Hepatology Ade Arriaga Follow-up 8 Bozena RN Telephone Transplant Hepatology Meggan Erickson Appointment ( LVM. 8 E Calling to confirm 03/03 clinic appt w/pt.) Follow-Up Transplant Hepatology Noemi, Kasi Itching (Primary 8 MD Gavi Dx);Abnormal CT scan, Woody Malave chest;Acute kidney MD Noman injury (HCC);Alcoholic cirrhosis of liver with ascites (HCC);Other ascites;Portal hypertensive gastropathy (HCC);Sarcopenia Telephone Transplant Hepatology Meggan Erickson Appointment ( LVM. 8 E Calling too confirm 02/03 clinic appt.) Abstract Transplant Hepatology Law Mohini R 8 Documentation Transplant Hepatology Ade Arriaga 8 C, RN Telephone Transplant Hepatology Dre Meggan Appointment ( LVM. 8 E Calling to confirm 02/03 clinic appt. Itinerary mailed.) Telephone Transplant Hepatology Meggan Erickson 8 E Procedure Pass Gastroenterology 8 Surgery Gastroenterology Jarred Kumari, UPPER ENDOSCOPY 8 Anesthesia Event Gastroenterology Balbir Siegel 8 Jj, SHIV Procedure Pass 8 Documentation Transplant Hepatology Law, Mohini R 8 Documentation Transplant Hepatology Law Mohini R Vaelrie Orders Only General Internal 8 Medicine Abstract Transplant Hepatology Karina Benton 8 Hospital Encounter General Internal Brann, Alcoholic cirrhosis [facility] MD Ghanshyam (HCC) (Primary 8 Keyla, Dx);Other ascites;POLLY Vo MD (acute kidney injury) Tyler, (HCC);Portal MD Lesa [...] Ramu Aguila Acute kidney injury 7 - Edgar Gardner MD (HCC);Ascites due to Lacie Calderon alcoholic cirrhosis 7 MD Rea (HCC);Other Martha, Yashash ascites;Symptomatic D anemia;Tachycardia;Al coholic cirrhosis of liver with ascites (HCC) Abstract Transplant Hepatology Ade Arriaga, NIYA Documentation Transplant Hepatology Ade Arriaga, RN Abstract Transplant Hepatology Ade Arriaga, RN Telephone Hepatology Anjelica Bree call 7 AFSHIN Mcfarland Office Visit Hepatology Kasi Franklin Alcoholic cirrhosis 7 MD Gavi of liver with ascites Suraj, Rise (HCC) (Primary J, Dx);Other ascites;History of alcohol use;Esophageal varices without bleeding, unspecified esophageal varices type (HCC);Screening for malignant neoplasm;Hyponatremia Abstract Transplant Hepatology Karina Benton 7 MD Telephone Hepatology Brigitte Man Appointment 7 Orders Only Hepatology Lázaro, Alcoholic cirrhosis 7 NIYA Palm of liver with ascites (HCC) (Primary Dx) Hospital Encounter Radiology Michael Davison, Canceled (Patient) 7 after 03/08/2017 Immunizations Name Dates Previously Given Next Due Hepatitis B Dialysis Or Immunosupressed 3-Dose IM 01/02/2018 Family History Medical History Relation Name Comments Diabetes Father Relation Name Status Comments Father Social History Tobacco Use Types Packs/Day Years Used Date Former Smoker Smokeless Tobacco: Never Used Alcohol Use Drinks/Week oz/Week Comments No Sex Assigned at Date Recorded Not on file Last Filed Vital Signs Vital Sign Reading Time Taken Blood Pressure 96/66 03/03/2018 11:15 AM CDT Pulse 88 03/03/2018 11:15 AM CDT Temperature 36.7 C (98.1 F) 03/03/2018 11:15 AM CDT Respiratory Rate 16 03/03/2018 11:15 AM CDT Oxygen Saturation 96% 03/03/2018 11:15 AM CDT Inhaled Oxygen Concentration - - Weight 79.8 kg (175 lb 14.4 oz) 03/03/2018 11:15 AM CDT Height 182.9 cm (6') 03/03/2018 11:15 AM CDT Body Mass Index 23.86 03/03/2018 11:15 AM CDT Plan of Treatment Date Type Specialty Care Team Description 03/11/2018 Appointment Radiology Woody Malave MD [address] [place] [address] [phone] Health Maintenance Due Date Last Done Comments INFLUENZA VACCINE 07/27/2018 Procedures Procedure Name Priority Date/Time Associated Diagnosis Comments R & L CATH / CORONARY 02/23/2018 10:26 AM Encounter for ANGIOS (+/- LV) CDT pre-transplant evaluation for liver transplant Case Notes (2) POP6 POSSIBLE PCI COLONOSCOPY 01/02/2018 9:00 AM MAINTENANCE MECHANIC TECHNICIAN Other iron deficiency anemia UPPER ENDOSCOPY 01/02/2018 9:00 AM MAINTENANCE MECHANIC TECHNICIAN Other iron deficiency anemia after 03/08/2017 Results PULMONARY FUNCTION - SCAN (03/05/2018 10:13 AM)Pulmonary Funct Lab Spirometry ( 03/03/2018 2:56 PM) Narrative Candido Alejandra, COMMISSIONING EDITOR, SPEEDOMETER MECHANIC 03/03/20182:[address] [facility] PFT CHARTING REPORT Infection Control/Hand Hygiene procedures followed throughout the encounter with patient: Yes Patient Identification Method: Patient name verified on armband, and Medical record on armband, Is the order complete?: Yes Account ID#: [id number] Patient Name: Abhishek Arrieta Birthdate: 1965 Age: 52 y.o.Sex: male Admission Date: 03/03/2018Patient Status: Outpatient Reasons/Symptom for having the Test?: the need of pre-op transplant evaluation and other diagnosis/symptoms as noted Type of study/treatment ordered by physician: Single Breath DLCO and Spirometry Lab Results Component Value Date HGB 8.8 (L) 02/23/2018 Ranges: Adult Male 13 - 16.8 g/dlAdult Female 12 - 15 g/dl 6 Minute Walk (read only) 02/23/2018 02/23/2018 03/03/2018 Pulse 77 77 88 SpO2 - - 96 Study Date: 03/03/18tudy Time: 1350 ASSESSMENT History & Physical Mode of Arrival: Wheel chair Pulse: 84Resp: 18SPO2: 96 %on ra Pain Assessment Pain:None TESTING/THERAPEUTICS Medications ordered or required for procedure: N/A PT EDUCATION/INSTRUCTIONS Barriers to learning: No known barriers to learning. Learning need identified: Yes, Patient/Family/Guradian was informed of the ordered study by the physician Barriers to performing study or treatment: Patient has no known disability to perform the study or treatment. DISCHARGE The study was completed in accordance with the physician's order and patient released from the lab without adverse outcome. CBC with platelet count + automated diff (03/03/2018 1:06 PM)Only the most recent of17 resultswithin the time period is included. Component Value Ref Range WBC 6.0 3.5 - 10.5 K/L RBC 2.74 (L) 4.63 - 6.08 M/L Hemoglobin 9.3 (L) 13.7 - 17.5 GM/DL Hematocrit 27.6 (L) 40.1 - 51.0 % MCV 100.7 (H) 79.0 - 92.2 fL MCH 33.9 (H) 25.7 - 32.2 pg MCHC 33.7 32.3 - 36.5 GM/DL RDW 14.9 (H) 11.6 - 14.4 % Platelets 96 (L) 150 - 450 K/CU MM MPV 9.4 9.4 - 12.4 fL nRBC 0 0 - 0 /100 WBC % Neutros 64 % % Lymphs 11 % % Monos 16 % % Eos 7 % % Baso 1 % # Neutros 3.83 1.78 - 5.38 K/L # Lymphs 0.66 (L) 1.32 - 3.57 K/L # Monos 0.95 (H) 0.30 - 0.82 K/L # Eos 0.41 0.04 - 0.54 K/L # Baso 0.03 0.01 - 0.08 K/L Immature Granulocytes-Relative 2 (H) 0 - 1 % Specimen Performing Laboratory Blood [facility] [address] [place] [address] Prothrombin time/INR (03/03/2018 1:06 PM)Only the most recent of13 resultswithin the time period is included. Component Value Ref Range Protime 19.0 (H) 11.7 - 14.7 seconds INR 1.6 <=5.9 Specimen Performing Laboratory Blood [address] [address] Narrative RECOMMENDED COUMADIN/WARFARIN INR THERAPY RANGES STANDARD DOSE: 2.0 - 3.0 Includes: PROPHYLAXIS for venous thrombosis, systemic embolization; TREATMENT for venous thrombosis and/or pulmonary embolus. HIGH RISK: Target INR is 2.5-3.5 for patients with mechanical heart valves. CBC with platelet count + automated diff (03/03/2018 1:06 PM)Only the most recent of17 resultswithin the time period is included. Specimen Performing Laboratory Blood [facility] ([facility]) Narrative The following orders were created for panel order CBC with platelet count + automated diff. Procedure Abnormality Status --------- ------ CBC with platelet count ...[[id number]]AbnormalFinal result Please view results for these tests on the individual orders. Bilirubin, direct (03/03/2018 1:06 PM)Only the most recent of3 resultswithin the time period is included. Component Value Ref Range Bilirubin, Direct 2.8 (H) 0.1 - 0.5 mg/dL Specimen Performing Laboratory Blood [address] [address] Comprehensive metabolic panel (03/03/2018 1:06 PM)Only the most recent of10 resultswithin the time period is included. Component Value Ref Range Protein, Total 6.2 6.0 - 8.3 gm/dL Albumin 3.4 (L) 3.5 - 5.0 g/dL Alkaline Phosphatase 139 40 - 150 U/L Total Bilirubin 4.0 (H) 0.2 - 1.2 mg/dL Sodium 129 (L) 136 - 145 meq/L Potassium 4.3 3.5 - 5.1 meq/L Chloride 96 (L) 98 - 107 meq/L CO2 22 22 - 29 meq/L BUN 28 (H) 7 - 21 mg/dL Creatinine 1.51 (H) 0.57 - 1.25 mg/dL Glucose 89 70 - 105 mg/dL Calcium 9.5 8.4 - 10.2 mg/dL AST 26 5 - 34 U/L ALT 11 6 - 55 U/L EGFR 49Comment: ESTIMATED GFR IS NOT ACCURATE mL/min/1.73 sq m CREATININE CLEARANCE IN PREDICTING GLOMERULAR FILTRATION RATE. ESTIMATED GFR IS NOT APPLICABLE FOR DIALYSIS PATIENTS. Specimen Performing Laboratory Blood [facility] [address] [place] [address] Narrative Specimen slightly icteric VASCULAR DIAGRAM -SCAN (02/25/2018 10:40 AM)CARDIAC CATH REPORT - SCAN (2017 8:50 PM)ECG 12 lead (02/23/2018 8:36 AM)Only the most recent of2 resultswithin the time period is included. Specimen Performing Laboratory [facility]USE Narrative Ventricular Rate 81 BPM Atrial Rate 81 BPM P-R Interval 172 ms QRS Duration 92 ms Q-T Interval 386 ms QTC Calculation(Bazett) 448 ms P Energy 63 degrees R Energy 8 degrees T Energy 48 degrees Normal sinus rhythm Normal ECG When compared with ECG of 30-DEC-2017 20:35, Previous ECG has undetermined rhythm, needs review Confirmed by MD DAGO, IHAB ([id number]) on 02/23/2018 1:18:52 PM Procedure Note Interface, External Ris In - 02/23/2018 1:19 PM CDT Ventricular Rate 81 BPM Atrial Rate 81 BPM P-R Interval 172 ms QRS Duration 92 ms Q-T Interval 386 ms QTC Calculation(Bazett) 448 ms P Energy 63 degrees R Energy 8 degrees T Energy 48 degrees Normal sinus rhythm Normal ECG When compared with ECG of 30-DEC-2017 20:35, Previous ECG has undetermined rhythm, needs review Confirmed by MD DAGO, IHAB ([id number]) on 02/23/2018 1:18:52 PM CBC (Hemogram only) (02/23/2018 8:00 AM)Only the most recent of3 resultswithin the time period is included. Component Value Ref Range WBC 5.4 3.5 - 10.5 K/L RBC 2.64 (L) 4.63 - 6.08 M/L Hemoglobin 8.8 (L) 13.7 - 17.5 GM/DL Hematocrit 26.2 (L) 40.1 - 51.0 % MCV 99.2 (H) 79.0 - 92.2 fL MCH 33.3 (H) 25.7 - 32.2 pg MCHC 33.6 32.3 - 36.5 GM/DL RDW 16.2 (H) 11.6 - 14.4 % Platelets 100 (L) 150 - 450 K/CU MM MPV 8.7 (L) 9.4 - 12.4 fL nRBC 0 0 - 0 /100 WBC Specimen Performing Laboratory Blood [address] [address] Basic metabolic panel (02/23/2018 8:00 AM)Only the most recent of8 resultswithin the time period is included. Component Value Ref Range Sodium 127 (L) 136 - 145 meq/L Potassium 4.3 3.5 - 5.1 meq/L Chloride 96 (L) 98 - 107 meq/L CO2 23 22 - 29 meq/L BUN 25 (H) 7 - 21 mg/dL Creatinine 1.46 (H) 0.57 - 1.25 mg/dL Glucose 130 (H) 70 - 105 mg/dL Calcium 9.1 8.4 - 10.2 mg/dL EGFR 51Comment: ESTIMATED GFR IS NOT ACCURATE mL/min/1.73 sq m CREATININE CLEARANCE IN PREDICTING GLOMERULAR FILTRATION RATE. ESTIMATED GFR IS NOT APPLICABLE FOR DIALYSIS PATIENTS. Specimen Performing Laboratory Blood [address] [address] Narrative Specimen slightly icteric EKG-SCANNED (01/08/2018 10:12 [...] MD Report Verified Date/Time:01/06/2018 11:15:08 Reading Location: [facility] Reading Room Procedure Note Interface, External [...] Report Verified Date/Time: 01/06/2018 11:15:08 Reading Location: [facility] Reading Room knee complete 4 views [...] MD Report Verified Date/Time:01/06/2018 11:15:08 Reading Location: [facility] Reading Room Procedure Note Interface, External [...] Report Verified Date/Time: 01/06/2018 11:15:08 Reading Location: [facility] Reading Room Calcium, Ionized (01/06/2018 5:16 AM)Only the most recent of5 resultswithin the time period is included. Component Value Ref Range Calcium, Ion 1.11 (L) 1.12 - 1.27 mmol/L pH, Blood 7.53 Specimen Performing Laboratory Blood - Arm, [address] [address] Phosphorus (01/06/2018 5:16 AM)Only the most recent of6 resultswithin the time period is included. Component Value Ref Range Phosphorus 3.6 2.3 - 4.7 mg/dL Specimen Performing Laboratory Blood - Arm, [address] [address] Magnesium (01/06/2018 5:16 AM)Only the most recent of7 resultswithin the time period is included. Component Value Ref Range Magnesium 2.0 1.6 - 2.6 mg/dL Specimen Performing Laboratory Blood - Arm, [address] [address] Cortisol, 60 minutes (01/05/2018 10:14 PM) Component Value Ref Range Cortisol, Baseline 4.8 mcg/dL Cortisol 30 minute 9.2 mcg/dL Cortisol, 60 Minute 12.6 ug/dL Specimen Performing Laboratory Blood - Arm, [address] [address] Narrative ACTH STIMULATION TEST INTERPRETATION GUIDELINES (Synonyms: [...] study by Mindy et al ( NEVAEH 2000,283(8):3090-22), the ACTH Stimulation Test provides important prognostic [...] ug/dL Specimen Performing Laboratory Blood - Arm, [address] [address] Narrative ACTH STIMULATION TEST INTERPRETATION GUIDELINES (Synonyms: [...] study by Mindy et al ( NEVAEH 2000,283(8):1038-45), the ACTH Stimulation Test provides important prognostic [...] ug/dL Specimen Performing Laboratory Blood - Arm, [address] ACTH STIMULATION TEST INTERPRETATION GUIDELINES (Synonyms: Cortrosyn [...] study by Mindy et al ( NEVAEH 2000,283(8):1038-45), the ACTH Stimulation Test provides important prognostic [...] stimulation. Procedure Abnormality Status --------- ------ Cortisol, baseline[[id number]] Final result Cortisol, 30 minutes[[id number]] Final result Cortisol, 60 minutes[[id number]] Final result Please view results for these tests on the individual orders. ACTH (01/05/2018 9:12 PM) Component Value Ref Range ACTH 10 6 - 50 pg/mL Comment: Reference range applies only to the specimens collected between 7am-10am. Specimen Performing Laboratory Blood - Arm, Left [facility] [address] [address] Narrative Performing Lab [facility] [address] [place] [address] Clau Avila MD, PhD US paracentesis (01/05/2018 5:34 PM)Only the most recent of4 resultswithin the time period is included. Specimen Performing Laboratory GE RIS Narrative FINAL REPORT History: Ascites. PROCEDURE: Following informed written consent, the patient's right lower quadrant was prepped and draped in the usual sterile manner. 2% lidocaine was given locally for anesthesia. No conscious sedation was administered. Using ultrasound guidance, a 5 Greenlandic one-step catheter was advanced percutaneously into the [...] MD Report Verified Date/Time:01/05/2018 17:54:16 Reading Location: [address] Ultrasound Reading Room Procedure Note Interface, External Ris In - 01/05/2018 5:56 PM CDT FINAL REPORT History: Ascites. PROCEDURE: Following informed written consent, the patient's right lower quadrant was prepped and draped in the usual sterile manner. 2% lidocaine was given locally for anesthesia. No conscious sedation was administered. Using ultrasound guidance, a 5 Greenlandic one-step catheter was advanced percutaneously into the [...] Report Verified Date/Time: 01/05/2018 17:54:16 Reading Location: [address] Ultrasound Reading Room Manual Differential (01/05/2018 6:10 AM)Only the most recent of6 resultswithin the time period is included. Component Value Ref Range Total Counted WBC Morphology Normal Platelet Morphology Normal Anisocytosis 1+ few Specimen Performing Laboratory Blood - Arm, [address] [address] Cortisol (01/05/2018 6:10 AM) Component Value Ref Range Cortisol, Total 2.7 (L) 3.7 - 19.4 ug/dL Specimen Performing Laboratory Blood - Arm, [address] [address] Electrolytes (01/04/2018 4:46 PM) Component Value Ref Range Sodium 129 (L) 136 - 145 meq/L Potassium 5.5 (H) 3.5 - 5.1 meq/L Chloride 101 98 - 107 meq/L CO2 26 22 - 29 meq/L Specimen Performing Laboratory Blood [address] [address] Narrative Call [phone] with results TRANSFUSION SERVICE REPORT - SCAN (01/03/2018 5:53 PM)Only the most recent of6 resultswithin the time period is included.Vitamin B12 and Folate (01/03/2018 2: 57 PM) Component Value Ref Range Vitamin B12 829 (H) 213 - 816 pg/mL Folate 18.9 >=7.0 ng/mL Specimen Performing Laboratory Blood - Arm, Right [address] [address] Prepare Leuko-Red RBC (01/02/2018 11:55 PM)Only the most recent of3 resultswithin the time period is included. Component Value Ref Range CROSSMATCH COMPATIBLE Unit ABO A Pos UNIT NUMBER [id number] Status TRANSFUSED Blood Bank Product RED BLOOD CELLS PRODUCT CODE [id number] Specimen Performing Laboratory Other [employer] [place] REPORT OF PROCEDURE - ENDOSCOPY URL (01/02/2018 11:12 AM)Only the most recent of2 resultswithin the time period is included.Transfuse Leuko-Red RBC (2017 7:11 PM)Only the most recent of6 resultswithin the time period is included.Type and screen, automated (01/01/2018 2:20 PM)Only the most recent of3 resultswithin the time period is included. Component Value Ref Range ABO/RH AUTOMATED (BEAKER) A POSITIVE Ab Scrn NEGATIVE Specimen Performing Laboratory Blood [address] [address] Body fluid cell count with differential (01/01/2018 9:40 AM)Only the most recent of3 resultswithin the time [...] Performing Laboratory Body Fluid - Ascites [facility] [address] [address] Hereditary Hemochromatosis DNA (01/01/2018 5:26 AM)Only the [...] for at-risk family members. Pablo Meade, Ph.D., [facility] Director, Molecular Genetics Hereditary hemochromatosis (HH) is [...] of these results, please contact your local [employer] genetic counselor or call [phone] ([phone]). This test was developed and its analytical performance characteristics have been determined by [employer] [place], [place], [place]. It has not been cleared or approved by the FDA. This assay has been validated pursuant to the CLIA regulations and is used for clinical purposes. For more information on this test, go to http://education.AdMoment/faq/hemochromatos Specimen Performing Laboratory Blood - Line, Venous [employer] [facility] [address] [place] [address] Narrative Performing Lab [address] [facility], [address] [place] [address] Ly Hansen MD, PhD CT chest without IV contrast (12/31/2017 7:21 PM) Specimen Performing Laboratory [employer] RIS Narrative FINAL REPORT HISTORY: Lung nodule, [...] MD Report Verified Date/Time:12/31/2017 19:24:12 Reading Location: [address] Consult Reading Room Procedure Note Interface, External Ris In - 12/31/2017 7:26 PM MAINTENANCE MECHANIC TECHNICIAN FINAL REPORT HISTORY: Lung nodule, >=1cm COMPARISON [...] Report Verified Date/Time: 12/31/2017 19:24:12 Reading Location: [facility] [id number] Consult Reading Room Blood gas, arterial [...] Specimen Performing Laboratory Blood, Arterial - Arm, [address] [address] Peripheral Blood Smear - Hold only (12/31/2017 4:48 PM) Component Value Ref Range Peripheral Smear Save prepared and saved smear, 12/31/17 Specimen Performing Laboratory Blood - Arm, [address] [address] Reticulocyte count (12/31/2017 4:48 PM) Component Value Ref Range % Retic 3.5 (H) 0.5 - 1.8 % Specimen Performing Laboratory Blood - Arm, Right [facility] [address] [place] [address] Lactate dehydrogenase (LDH) (12/31/2017 4:48 PM) Component Value Ref Range LDH 112 (L) 125 - 220 U/L Specimen Performing Laboratory Blood - Arm, Right [address] [address] Hemoglobin and hematocrit (12/31/2017 1:03 PM) Component Value Ref Range Hemoglobin 7.3 (L) 13.7 - 17.5 GM/DL Hematocrit 21.9 (L) 40.1 - 51.0 % Specimen Performing Laboratory Blood - Arm, Right [address] [address] NM myocardial perfusion SPECT,pharm(Lexiscan) (12/31/2017 12:10 PM) Specimen Performing Laboratory [employer] RIS Narrative FINAL REPORT PROCEDURE:Rest/Stress MYOCARDIAL PERFUSION SPECT with regadenoson\XA9\ CPT CODE:23655 INDICATION:Liver transplant evaluation HISTORY:Cardiac risk factors: Stroke. [...] function.5. Normal extracardiac tracer distribution.6. No previous [facility] study for comparison. NONINVASIVE RISK STRATIFICATION: The above findings are considered low risk (<1% annual mortality rate) based on the following criterion: - Normal or small myocardial perfusion defect at rest or with stress ([facility]. 2012;59(9):857-35.) Signed: Mabel Napier MD Report Verified Date/Time:12/31/2017 15:12:03 Reading Location: [address] [facility] Reading Room Procedure Note Interface, External Ris In - 12/31/2017 3:14 PM MAINTENANCE MECHANIC TECHNICIAN FINAL REPORT PROCEDURE: Rest/Stress MYOCARDIAL PERFUSION SPECT with regadenoson\XA9\ CPT CODE: 79637 INDICATION: Liver transplant evaluation HISTORY: Cardiac risk [...] Normal extracardiac tracer distribution. 6. No previous [facility] study for comparison. NONINVASIVE RISK STRATIFICATION: The above findings are considered low risk (<1% annual mortality rate) based on the following criterion: - Normal or small myocardial perfusion defect at rest or with stress ([facility]. 2012;59(9):857-81.) Signed: Mabel Napier MD Report Verified Date/Time: 12/31/2017 15:12:03 Reading Location: [address] Reading Room Treadmill tolerance(Non-Nuclear Treadmill) (12/31/2017 10:40 AM) Specimen Performing Laboratory [employer] Narrative Protocol Name Lexiscan Time In Exercise [...] No meds Confirmed by fellow Patrick Katz ([id number]) on 12/31/2017 10:58:52 AM Confirmed by MD COKER JORGE [id number]) on 01/02/2018 11:06:54 AM Procedure Note Interface, External Ris In - 01/02/2018 11:07 AM MAINTENANCE MECHANIC TECHNICIAN Protocol Name Lexiscan Time In Exercise Phase [...] No meds Confirmed by fellow Patrick Katz ([id number]) on 12/31/2017 10:58:52 AM Confirmed by MD COKER JORGE ([id number]) on 01/02/2018 11:06:54 AM ECHOCARDIOGRAM REPORT - SCAN (12/31/2017 9:50 AM)PT/aPTT (12/31/2017 8:08 AM) Only the most recent of3 resultswithin the time period is included. Component Value Ref Range Protime 24.0 (H) 11.7 - 14.7 seconds INR 2.2 <=5.9 PTT 55.2 (H) 22.5 - 36.0 seconds Specimen Performing Laboratory Blood - Arm, Right [facility] [address] [address] Narrative RECOMMENDED COUMADIN/WARFARIN INR THERAPY RANGES STANDARD DOSE: 2.0 - 3.0 Includes: PROPHYLAXIS for venous thrombosis, systemic embolization; TREATMENT for venous thrombosis and/or pulmonary embolus. HIGH RISK: Target INR is 2.5-3.5 for patients with mechanical heart valves. PERIPHERAL VASCULAR REPORT - SCAN (12/31/2017 7:20 AM)XR chest 2 views (2017 11:15 PM) Specimen Performing Laboratory [employer] RIS Narrative FINAL REPORT EXAMINATION: 2 VIEW [...] MD Report Verified Date/Time:12/30/2017 23:32:31 Reading Location: [address] Reading Room Procedure Note Interface, External Ris In - 12/30/2017 11:34 PM MAINTENANCE MECHANIC TECHNICIAN FINAL REPORT EXAMINATION: 2 VIEW CHEST CLINICAL [...] Report Verified Date/Time: 12/30/2017 23:32:31 Reading Location: [address] Reading Room mandible min 4 views [...] MD Report Verified Date/Time:12/31/2017 01:37:57 Reading Location: [address] Reading Room Procedure Note Interface, External Ris In - 12/31/2017 1:40 AM MAINTENANCE MECHANIC TECHNICIAN FINAL REPORT EXAMINATION: MANDIBULAR SERIES, 6 VIEWS [...] Report Verified Date/Time: 12/31/2017 01:37:57 Reading Location: [address] Reading Room W CONTRAST & DOPPLER (12/30/2017 7:06 PM) Component Value Ref Range Ejection Fraction Specimen Performing Laboratory [facility] MK[facility]ESSON CPA Narrative Transthoracic Echocardiography Report (TTE) Demographics Patient Name Madison ARRIETA of Study 12/30/2017 [id number] Male Visit Number [id number] Unknown [id number] Room Number 923 Number Date of Birth1965Referring Physician Pacheco Mota MD Age52 year(s)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 Judi Pearson Interpreting [facility] Needs to be Pre Physician Read Sarah Otrega MD Fellow CARRIE Benavidez Procedure Type of [...] External Ris In - 12/31/2017 9:21 AM MAINTENANCE MECHANIC TECHNICIAN Transthoracic Echocardiography Report (TTE) Demographics Patient Name ABHISHEK ARRIETA Date of Study 12/30/2017 Gender Male Visit Number [id number] Race Unknown Room Number 923 Number Date of 1965 Referring Physician Pacheco Mota MD Age 52 year(s) 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 There is [...] Patient Name Madison ARRIETA of Study 12/30/2017 [id number] Visit Number [id number] Male Accession Number [id number] [facility] 1965 [facility] PhysicianKumar SonographerNationwide Children'S Hospitalther L.InterpretingJGregory Matthew T Physician , WOLF Procedure Type of Study: Cerebral: Carotid, CAROTID DOPPLER, BILATERAL. Indications for Study:Liver transplant evaluation. Patient Status:Routine. Study Location:Vascular Lab. Technical Quality:Adequate visualization. Risk Factors History of Disease + +----+ + !Diagnosis !Date!Comments ! + +----+ + !History/Risk!!Alcoholic cirrhosis, Ascites, Liver Failure, POLLY! !Factors:!! ! + +----+ + Procedure Note Interface, External Ris In - 12/31/2017 5:43 AM MAINTENANCE MECHANIC TECHNICIAN [facility] - Carotid Duplex Study Demographics Patient Name ABHISHEK ARRIETA Date of Study 12/30/2017 Age 52 Visit Number [id number] Gender Male Accession Number [id number] Date of 1965 Referring Maylinfrederick Bryanbishop Room Number 923 Physician Noman 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 Massiel Riddle Interpreting Gregory Lopez Angela Physician , RPVI Procedure Type of Study: [...] This test was performed using the Siemens (Forseva) Chemiluminescent method. Values obtained from different assay methods cannot be used interchangeably. CA19-9 levels, regardless of value, should not be interpreted as absolute evidence of the presence or absence of disease. Specimen Performing Laboratory Blood [facility] [address] [place] [address] Narrative Performing Lab [facility] [address] [place] [address] Clau Avila MD, PhD Hemoglobin A1c (12/30/2017 3:19 PM) Component Value Ref Range Hemoglobin A1C 4.1 (L) 4.3 - 6.1 % Specimen Performing Laboratory Blood [facility] [address] [address] Euayn-5-Toovjuseovk Phenotype (12/30/2017 3:18 PM) Component Value Ref Range A-1 Antitryp Phenotyp SEE BELOW Comment: THIS PATIENT'S BIQEQ-0-HBLGGRLMTMF PHENOTYPE IS PI*MM. 90% of normal individuals have the MM phenotype, with normal quantitative AAT levels. Many phenotypic patterns have been described, including deficiency states with F, S, Z, or other alleles. As a general estimation, compared to M allele of 100% of normal L-3-Uvdjcoyqwdx protein, the S allele produces approximately 60% and the Z allele 20%. For example, an MS phenotype would have about 80% of normal M-1-Vgwbetilosi protein level, a 50% contribution from the M allele and 30% from the S allele. A ZZ phenotype would have about 20% of normal levels, a 10% contribution from each Z gene. The F allele has normal K-1-Ncyxzrfzfth levels, but the kinetics of elastase inhibition [...] phenotype. Specimen Performing Laboratory Blood - Other [facility] [address] [place] [address] Narrative Performing Lab E[facility] [address] [place] [address] Clau Avila MD, PhD Zinc (12/30/2017 3:18 PM) Component Value Ref Range Zinc 32 (L) 60 - 130 mcg/dL Comment: This test was developed and its analytical performance characteristics have been determined by [facility]. It has not been cleared or approved by the US Food and Drug Administration. This assay has been validated pursuant to the CLIA regulations and is used for clinical purposes. Specimen Performing Laboratory Blood [address] [address] Narrative Performing Lab *[facility], [address] [place] [phone] Clau Avila MD, PhD Testosterone, free + total (12/30/2017 3:18 PM) Component Value Ref Range Testosterone 90 (L) 250 - 1100 ng/dL Testosterone, Free 12.6 (L) 35.0 - 155.0 pg/mL Comment: This test was developed and its analytical performance characteristics have been determined by [facility]. It has not been cleared or approved by the [place] Food and Drug Administration. This assay has been validated pursuant to the CLIA regulations and is used for clinical purposes. Specimen Performing Laboratory Blood [address] [address] Narrative Performing Lab *[facility], [address] [place] [phone] Clau Avila MD, PhD Iron, TIBC, % sat. (without ferritin) (12/30/2017 3:17 PM) Component Value Ref Range Iron 90 40 - 160 ug/dL TIBC 85 (L) 250 - 450 ug/dL Iron % Saturation 106 (H) 20 - 55 % Specimen Performing Laboratory Blood [address] [address] HIV-1 Antigen with HIV-1/2 Antibody (12/30/2017 3:17 PM) Component Value Ref Range HIV-1 Antigen with HIV 1&2 Antibody Nonreactive Nonreactive Specimen Performing Laboratory Blood [address] [address] Hepatitis C antibody (12/30/2017 3:17 PM) Component Value Ref Range Hepatitis C Ab Nonreactive Nonreactive Specimen Performing Laboratory Blood [address] [address] Hepatitis A antibody, IgM (12/30/2017 3:17 PM) Component Value Ref Range Hep A IgM Nonreactive Nonreactive Specimen Performing Laboratory [address] [address] Hepatitis B core antibody, IgM (12/30/2017 3:17 PM) Component Value Ref Range Hep B C IgM Nonreactive Nonreactive Specimen Performing Laboratory [address] [address] Hepatitis B core antibody, total (12/30/2017 3:17 PM) Component Value Ref Range Hep B Core Total Ab Nonreactive Nonreactive Specimen Performing Laboratory [address] [address] Vitamin D, 25-Hydroxy (12/30/2017 3:17 PM) Component Value Ref Range Vitamin D 25-Hydroxy 6.9 6.6 - 49.9 ng/mL Specimen Performing Laboratory [address] [address] Narrative Effective 08/06/2017: Reference Range Change New: 6.6-49.9 ng/mL Previous: 13.0-47.8 ng/mL Recommended Vitamin D Target Range: 30.0-40.0 ng/mL RPR (12/30/2017 3:17 PM) Component Value Ref Range RPR Nonreactive Nonreactive Specimen Performing Laboratory [address] [address] Hepatitis B surface antibody (12/30/2017 3:17 PM) Component Value Ref Range Hep B S Ab <8.0 <8.0 mIU/mL Specimen Performing Laboratory [address] [address] Hepatitis B surface antigen (12/30/2017 3:17 PM) Component Value Ref Range hepatitis B Surface Ag Nonreactive Nonreactive Specimen Performing Laboratory [address] [address] Fibrinogen (12/30/2017 3:17 PM) Component Value Ref Range Fibrinogen 161 (L) 225 - 434 mg/dl Specimen Performing Laboratory [address] [address] T3 (12/30/2017 3:17 PM) Component Value Ref Range T3, Total 42 (L) 48 - 159 ng/dL Specimen Performing Laboratory [address] [address] Transferrin (12/30/2017 3:17 PM) Component Value Ref Range Transferrin 65 (L) 174 - 382 mg/dL Specimen Performing Laboratory [address] [address] Narrative Specimen slightly icteric TSH (12/30/2017 3:17 PM) Component Value Ref Range TSH 1.55 0.35 - 4.94 uIU/mL Specimen Performing Laboratory [address] [address] T4 (12/30/2017 3:17 PM) Component Value Ref Range T4, Total 3.5 (L) 4.9 - 11.7 ug/dL Specimen Performing Laboratory [address] [address] PSA (12/30/2017 3:17 PM) Component Value Ref Range PSA 0.1 0.0 - 4.0 ng/mL Specimen Performing Laboratory [address] [address] Ferritin (12/30/2017 3:17 PM) Component Value Ref Range Ferritin 1460 (H) 5 - 275 ng/mL Specimen Performing Laboratory [address] [address] Carcinoembryonic Antigen (CEA) (12/30/2017 3:17 PM) Component Value Ref Range CEA, SERUM 3.0 0.0 - 5.0 ng/mL Specimen Performing Laboratory [address] [address] Cytomegalovirus antibody, IgM (12/30/2017 3:16 PM) Component Value Ref Range CMV IgM Negative Specimen Performing Laboratory Blood - Arm, [address] [address] Cryptococcal antigen (12/30/2017 3:16 PM) Component Value Ref Range Cryptococcal Antigen, Serum Negative Negative, Interference Specimen Performing Laboratory Blood - Arm, [address] [address] EBV-VCA antibody, IgM (12/30/2017 3:16 PM) Component Value Ref Range EBV VCA IgM Negative Specimen Performing Laboratory Blood - Arm, [address] [address] EBV-VCA antibody, IgG (12/30/2017 3:16 PM) Component Value Ref Range EBV VCA IgG Positive Specimen Performing Laboratory Blood - Arm, [address] [address] Cytomegalovirus antibody, IgG (12/30/2017 3:16 PM) Component Value Ref Range CMV IgG Positive Specimen Performing Laboratory Blood - Arm, [address] [address] Uric acid (12/30/2017 3:16 PM) Component Value Ref Range Uric Acid 8.5 (H) 2.6 - 7.2 mg/dL Specimen Performing Laboratory Blood - Arm, [address] [address] Narrative Specimen slightly icteric Lipid panel (12/30/2017 3:16 PM) Component Value Ref Range Triglycerides 38 mg/dL Cholesterol 51 mg/dL HDL 10 mg/dL LDL Calculated 33 mg/dL Specimen Performing Laboratory Blood - Arm, [address] [address] Narrative Triglyceride Reference Range: Low Risk <150 Hvwyzxvigu482-690 High Risk 200-499 Very High Risk>=500 Cholesterol Reference Range: Low Risk <200 Hmjtgsmpgq000-338 High Risk>240 HDL Cholesterol Reference Range: Low Risk >=60 High Risk <40 LDL Cholesterol Reference Range: Optimal<100 Near Kogkhid387-670 Yvwslvdvxr011-276 Bltb772-738 Very High >=190 Specimen slightly icteric Sodium, random urine (12/30/2017 5:14 AM) Component Value Ref Range Sodium Urine <20 meq/L Specimen Performing Laboratory Urine - Urine, Voided [address] [address] Narrative Reference Range: No Normals Protein, random urine (12/30/2017 5:14 AM) Component Value Ref Range Protein, Urine <7 0 - 14 mg/dL Specimen Performing Laboratory Urine - Urine, Voided [address] [address] Creatinine, random urine (12/30/2017 5:14 AM) Component Value Ref Range Creatinine, Ur 60.6 mg/dL Specimen Performing Laboratory Urine - Urine, Voided [address] [address] Narrative Reference Range: No Normals Urinalysis w/Microscopic (12/30/2017 5:14 AM)Only the most recent of2 resultswithin the time period is included. Component Value Ref Range Color, UA Yellow Clarity, UA Clear Specific [place], UA 1.008 1.001 - 1.035 pH, UA [...] Specimen Performing Laboratory Urine - Urine, Voided [address] [address] Drug screen, urine, transplant (12/29/2017 1:12 PM)Only the most recent of2 resultswithin the time period is included. Specimen Performing Laboratory Urine - Urine, Clean Catch [facility] [phone] Ethanol (12/29/2017 12:33 PM) Component Value Ref Range Ethanol Lvl <10 <=10 mg/dL Specimen Performing Laboratory Blood - Arm, Right [address] [address] [address] abdomen/pelvis without iv contrast (12/28/2017 9:28 PM) Specimen Performing Laboratory [facility] Narrative FINAL REPORT EXAM: CT of [...] MD Report Verified Date/Time:12/28/2017 22:20:52 Reading Location: [address] Transitional Reading Room Procedure Note Interface, External Ris In - 12/28/2017 10:23 PM MAINTENANCE MECHANIC TECHNICIAN FINAL REPORT EXAM: CT of the abdomen [...] Report Verified Date/Time: 12/28/2017 22:20:52 Reading Location: [address] Reading Room Alpha fetoprotein (AFP), tumor marker (12/28/2017 4:47 AM)Only the most recent of2 resultswithin the time period is included. Component Value Ref Range Alpha-Fetoprotein 4.1 <10.0 ng/mL Specimen Performing Laboratory Blood - Arm, Left [address] [address] Body fluid culture + gram stain (12/27/2017 7:03 PM)Only the most recent of2 resultswithin the time period is included. Component Value Ref Range Result No growth Gram Stain Result No WBCs Gram Stain Result No organisms seen Specimen Performing Laboratory Body Fluid - Ascites [address] [address] Albumin, body fluid (12/27/2017 7:03 PM) Component Value Ref Range Albumin, Fluid 0.4 gm/dL Specimen Performing Laboratory Body Fluid - Ascites [address] [address] Narrative Reference Range:No Normals Assay performance has not been validated for this type of specimen. Hepatic function panel (12/27/2017 9:55 AM)Only the most recent of5 resultswithin the time period is included. Component [...] Specimen Performing Laboratory Blood - Arm, Left [address] [address] Narrative Specimen slightly icteric RHYTHM STRIP - SCAN (09/08/2017 12:02 PM)Rapid drug screen, urine (09/05/2017 6 :02 PM) Component Value Ref Range Barbiturate Screen Negative Negative Benzodiazepine Screen Negative Negative Cocaine (Metab.) Screen Negative Negative Methadone Screen Negative Negative Opiate Screen Negative Negative Cannabinoid Screen Negative Negative Amph/Methamph Screen Negative Negative Phencyclidine Screen Negative Negative Oxycodone Screen Negative Negative Specimen Performing Laboratory Urine - Urine, Clean Catch [address] [address] Narrative DRUGCUTOFF CONC. Cocaine 300 ng/mL Bzolzqllhun29 ng/mL Luxhyfwlunulxr067 ng/mL Barbiturate 200 ng/mL Vliltcmvhfjji64 ng/mL Eyjjdd713 ng/mL Methadone 300 ng/mL Amphetamine/ 1000 ng/mL Methamphetamine Oxycodone 300 ng/mL This assay provides an unconfirmed qualitative test result for the clinical management of patients in emergency situations. Chain of custody not maintained. Some mebh-mos-vshppzm medications, as well as adulterants, may cause inaccurate results. Clinical correlation should be applied. A more comprehensive drug screen or confirmation of a detected drug may be performed upon request. MR abdomen without & with IV contrast (09/05/2017 12:11 PM) Specimen Performing Laboratory [employer] Narrative FINAL REPORT MRI of the abdomen [...] MD Report Verified Date/Time:09/05/2017 13:52:35 Reading Location: [facility] C013Y CT Body Reading Room Procedure Note Interface, External Ris In - 09/05/2017 1:54 PM MAINTENANCE MECHANIC TECHNICIAN FINAL REPORT MRI of the abdomen with [...] Report Verified Date/Time: 09/05/2017 13:52:35 Reading Location: [facility] B1 C013Y CT Body Reading Room Blood culture #2 (09/03/2017 10:15 PM)Only the most recent of2 resultswithin the time period is included. Component Value Ref Range Result No growth in 5 days Specimen Performing Laboratory Blood - Arm, Left [address] [address] Gamma Glutamyl Transferase (GGT) (07/24/2017 2:42 PM) Component Value Ref Range GGT 17 9 - 64 U/L Specimen Performing Laboratory Blood [address] [address] Narrative Specimen moderately icteric after 03/08/2017
--- OUTSIDE RECORDS SUMMARY | 2018-03-09 10:46 | XMS REPORT ---
:1965 [facility] Address [address] [place] [address] [address] [place] [address] Care Team Providers Name Role Phone BRYAN MUSA Unavailable Unavailable ANDREA DENTON Unavailable Unavailable OWEN MASON Unavailable Unavailable MARIAA HEATH Unavailable Unavailable JULIO ENRIQUEZ Unavailable Unavailable JUAN PIMENTEL Unavailable Unavailable Problems This patient has no known problems. Allergies, Adverse Reactions, Alerts This patient has no known allergies or adverse reactions. Medications This patient has no known medications. Results Test Description Test Time Test Comments Text Results Atomic Results Result Comments COMPREHENSIVE METABOLIC PANEL 2018-03-03 16:49:00 Test Item Value Reference Range Comments TOTAL PROTEIN (BEAKER) (test 6.2 gm/dL 6.0-8.3 zeiu=198) ALBUMIN (BEAKER) (test 3.4 g/dL 3.5-5.0 hhrg=5628) ALKALINE PHOSPHATASE 139 U/L 40-150 (BEAKER) (test ladw=630) BILIRUBIN TOTAL (BEAKER) 4.0 mg/dL 0.2-1.2 (test sryo=748) SODIUM (BEAKER) (test 129 meq/L 136-145 uhid=910) POTASSIUM (BEAKER) (test 4.3 meq/L 3.5-5.1 vwic=291) CHLORIDE (BEAKER) (test 96 meq/L 98-107 jwyr=607) CO2 (BEAKER) (test udha=484) 22 meq/L 22-29 BLOOD UREA NITROGEN (BEAKER) 28 mg/dL 7-21 (test abul=180) CREATININE (BEAKER) (test 1.51 mg/dL 0.57-1.25 tues=942) GLUCOSE RANDOM (BEAKER) 89 mg/dL 70-105 (test owfb=606) CALCIUM (BEAKER) (test 9.5 mg/dL 8.4-10.2 kjaf=058) AST (SGOT) (BEAKER) (test 26 U/L 5-34 ueed=398) ALT (SGPT) (BEAKER) (test 11 U/L 6-55 praw=942) EGFR (BEAKER) (test 49 mL/min/1.73 sq m ESTIMATED GFR IS NOT ibsf=8154) ACCURATE CREATININE CLEARANCE IN PREDICTING GLOMERULAR FILTRATION RATE. ESTIMATED GFR IS NOT APPLICABLE FOR DIALYSIS PATIENTS. Specimen slightly ictericBILIRUBIN, [id number] 16:49:00 Test Item Value Reference Range Comments BILIRUBIN DIRECT (BEAKER) (test mqau=902) 2.8 mg/dL 0.1-0.5 PROTHROMBIN [id number] 16:36:00 Test Item Value Reference Range Comments PROTIME (BEAKER) (test fnhy=819) 19.0 seconds 11.7-14.7 INR (BEAKER) (test ylbq=425) 1.6 <=5.9 RECOMMENDED COUMADIN/WARFARIN INR THERAPY RANGESSTANDARD DOSE: 2.0 - 3.0 Includes: PROPHYLAXIS forvenous thrombosis, systemic embolization; TREATMENT for venous thrombosis and/or pulmonary embolus.HIGH RISK: Target INR is 2.5-3.5 for patients with mechanical heart valves.CBC W/PLT COUNT & AUTO [id number] 16:27:00 Test Item Value Reference Range Comments WHITE BLOOD CELL COUNT (BEAKER) (test pvvz=192) 6.0 K/ L 3.5-10.5 RED BLOOD CELL COUNT (BEAKER) (test agdy=835) 2.74 M/ L 4.63-6.08 HEMOGLOBIN (BEAKER) (test hyyh=543) 9.3 GM/DL 13.7-17.5 HEMATOCRIT (BEAKER) (test jlul=050) 27.6 % 40.1-51.0 MEAN CORPUSCULAR VOLUME (BEAKER) (test bsqd=961) 100.7 fL 79.0-92.2 MEAN CORPUSCULAR HEMOGLOBIN (BEAKER) (test 33.9 pg 25.7-32.2 ohwo=426) MEAN CORPUSCULAR HEMOGLOBIN CONC (BEAKER) (test 33.7 GM/DL 32.3-36.5 jsgr=094) RED CELL DISTRIBUTION WIDTH (BEAKER) (test 14.9 % 11.6-14.4 sypa=541) PLATELET COUNT (BEAKER) (test zzam=931) 96 K/CU MM 150-450 MEAN PLATELET VOLUME (BEAKER) (test pkpe=856) 9.4 fL 9.4-12.4 NUCLEATED RED BLOOD CELLS (BEAKER) (test 0 /100 WBC 0-0 syow=573) NEUTROPHILS RELATIVE PERCENT (BEAKER) (test 64 % iwcr=589) LYMPHOCYTES RELATIVE PERCENT (BEAKER) (test 11 % ejab=355) MONOCYTES RELATIVE PERCENT (BEAKER) (test 16 % isxh=805) EOSINOPHILS RELATIVE PERCENT (BEAKER) (test 7 % jpyq=504) BASOPHILS RELATIVE PERCENT (BEAKER) (test 1 % wukn=365) NEUTROPHILS ABSOLUTE COUNT (BEAKER) (test 3.83 K/ L 1.78-5.38 lmiy=420) LYMPHOCYTES ABSOLUTE COUNT (BEAKER) (test 0.66 K/ L 1.32-3.57 pvda=428) MONOCYTES ABSOLUTE COUNT (BEAKER) (test mzve=402) 0.95 K/ L 0.30-0.82 EOSINOPHILS ABSOLUTE COUNT (BEAKER) (test 0.41 K/ L 0.04-0.54 fjml=922) BASOPHILS ABSOLUTE COUNT (BEAKER) (test cjjw=666) 0.03 K/ L 0.01-0.08 IMMATURE GRANULOCYTES-RELATIVE PERCENT (BEAKER) 2 % 0-1 (test wtcz=9505) BASIC METABOLIC [id number] 08:26:00 Test Item Value Reference Range Comments SODIUM (BEAKER) (test 127 meq/L 136-145 pqzj=471) POTASSIUM (BEAKER) (test 4.3 meq/L 3.5-5.1 subf=561) CHLORIDE (BEAKER) (test 96 meq/L 98-107 mjjz=405) CO2 (BEAKER) (test 23 meq/L 22-29 eufg=868) BLOOD UREA NITROGEN 25 mg/dL 7-21 (BEAKER) (test jliu=250) CREATININE (BEAKER) (test 1.46 mg/dL 0.57-1.25 kwkd=330) GLUCOSE RANDOM (BEAKER) 130 mg/dL 70-105 (test qbgh=236) CALCIUM (BEAKER) (test 9.1 mg/dL 8.4-10.2 urwx=742) EGFR (BEAKER) (test 51 mL/min/1.73 sq m ESTIMATED GFR IS NOT qyiq=2961) ACCURATE CREATININE CLEARANCE IN PREDICTING GLOMERULAR FILTRATION RATE. ESTIMATED GFR IS NOT APPLICABLE FOR DIALYSIS PATIENTS. Specimen slightly ictericCBC (HEMOGRAM ONLY)2018-02-23 08:06:00 Test Item Value Reference Range Comments WHITE BLOOD CELL COUNT (BEAKER) (test reue=659) 5.4 K/ L 3.5-10.5 RED BLOOD CELL COUNT (BEAKER) (test sexk=270) 2.64 M/ L 4.63-6.08 HEMOGLOBIN (BEAKER) (test yvwn=693) 8.8 GM/DL 13.7-17.5 HEMATOCRIT (BEAKER) (test cpln=486) 26.2 % 40.1-51.0 MEAN CORPUSCULAR VOLUME (BEAKER) (test pjpo=967) 99.2 fL 79.0-92.2 MEAN CORPUSCULAR HEMOGLOBIN (BEAKER) (test 33.3 pg 25.7-32.2 frlk=919) MEAN CORPUSCULAR HEMOGLOBIN CONC (BEAKER) (test 33.6 GM/DL 32.3-36.5 ezhq=800) RED CELL DISTRIBUTION WIDTH (BEAKER) (test 16.2 % 11.6-14.4 oroi=445) PLATELET COUNT (BEAKER) (test howf=328) 100 K/CU MM 150-450 MEAN PLATELET VOLUME (BEAKER) (test xdrc=113) 8.7 fL 9.4-12.4 NUCLEATED RED BLOOD CELLS (BEAKER) (test 0 /100 WBC 0-0 jltm=507) COMPREHENSIVE METABOLIC [id number] 15:06:00 Test Item Value Reference Range Comments TOTAL PROTEIN (BEAKER) 6.5 gm/dL 6.0-8.3 (test sdrv=699) ALBUMIN (BEAKER) (test 3.7 g/dL 3.5-5.0 jexa=6124) ALKALINE PHOSPHATASE 135 U/L 40-150 (BEAKER) (test abxd=745) BILIRUBIN TOTAL (BEAKER) 4.5 mg/dL 0.2-1.2 (test xdzy=449) SODIUM (BEAKER) (test 131 meq/L 136-145 ewwo=219) POTASSIUM (BEAKER) (test 5.8 meq/L 3.5-5.1 kpwb=768) CHLORIDE (BEAKER) (test 103 meq/L 98-107 jjzi=617) CO2 (BEAKER) (test 24 meq/L 22-29 uprp=258) BLOOD UREA NITROGEN 27 mg/dL 7-21 (BEAKER) (test pgki=828) CREATININE (BEAKER) (test 1.17 mg/dL 0.57-1.25 qlkm=085) GLUCOSE RANDOM (BEAKER) 111 mg/dL 70-105 (test kqed=886) CALCIUM (BEAKER) (test 11.0 mg/dL 8.4-10.2 ynod=741) AST (SGOT) (BEAKER) (test 28 U/L 5-34 ntpo=502) ALT (SGPT) (BEAKER) (test 19 U/L 6-55 pcks=454) EGFR (BEAKER) (test 65 mL/min/1.73 sq m ESTIMATED GFR IS NOT fwxm=2073) ACCURATE CREATININE CLEARANCE IN PREDICTING GLOMERULAR FILTRATION RATE. ESTIMATED GFR IS NOT APPLICABLE FOR DIALYSIS PATIENTS. Specimen slightly ictericBILIRUBIN, [id number] 15:06:00 Test Item Value Reference Range Comments BILIRUBIN DIRECT (BEAKER) (test wzwa=480) 3.0 mg/dL 0.1-0.5 PROTHROMBIN [id number] 14:42:00 Test Item Value Reference Range Comments PROTIME (BEAKER) (test fuid=157) 19.1 seconds 11.7-14.7 INR (BEAKER) (test eyjs=078) 1.6 <=5.9 RECOMMENDED COUMADIN/WARFARIN INR THERAPY RANGESSTANDARD DOSE: 2.0 - 3.0 Includes: PROPHYLAXIS forvenous thrombosis, systemic embolization; TREATMENT for venous thrombosis and/or pulmonary embolus.HIGH RISK: Target INR is 2.5-3.5 for patients with mechanical heart valves.CBC W/PLT COUNT & AUTO [id number] 14:36:00 Test Item Value Reference Range Comments WHITE BLOOD CELL COUNT (BEAKER) (test dlgn=379) 5.5 K/ L 3.5-10.5 RED BLOOD CELL COUNT (BEAKER) (test dsfu=615) 2.84 M/ L 4.63-6.08 HEMOGLOBIN (BEAKER) (test qpbw=490) 9.5 GM/DL 13.7-17.5 HEMATOCRIT (BEAKER) (test ysxj=389) 28.8 % 40.1-51.0 MEAN CORPUSCULAR VOLUME (BEAKER) (test xguj=887) 101.4 fL 79.0-92.2 MEAN CORPUSCULAR HEMOGLOBIN (BEAKER) (test 33.5 pg 25.7-32.2 fcgl=720) MEAN CORPUSCULAR HEMOGLOBIN CONC (BEAKER) (test 33.0 GM/DL 32.3-36.5 geee=144) RED CELL DISTRIBUTION WIDTH (BEAKER) (test 19.4 % 11.6-14.4 nztj=761) PLATELET COUNT (BEAKER) (test lgvc=510) 65 K/CU MM 150-450 MEAN PLATELET VOLUME (BEAKER) (test kpvp=535) 8.8 fL 9.4-12.4 NUCLEATED RED BLOOD CELLS (BEAKER) (test 0 /100 WBC 0-0 xfti=298) NEUTROPHILS RELATIVE PERCENT (BEAKER) (test 66 % wfzs=826) LYMPHOCYTES RELATIVE PERCENT (BEAKER) (test 14 % hcqc=631) MONOCYTES RELATIVE PERCENT (BEAKER) (test 15 % nfvk=528) EOSINOPHILS RELATIVE PERCENT (BEAKER) (test 4 % dlcb=999) BASOPHILS RELATIVE PERCENT (BEAKER) (test 0 % esuh=703) NEUTROPHILS ABSOLUTE COUNT (BEAKER) (test 3.58 K/ L 1.78-5.38 cgaq=529) LYMPHOCYTES ABSOLUTE COUNT (BEAKER) (test 0.78 K/ L 1.32-3.57 gbjj=469) MONOCYTES ABSOLUTE COUNT (BEAKER) (test sfgz=747) 0.79 K/ L 0.30-0.82 EOSINOPHILS ABSOLUTE COUNT (BEAKER) (test 0.23 K/ L 0.04-0.54 aqbk=580) BASOPHILS ABSOLUTE COUNT (BEAKER) (test ixlt=771) 0.02 K/ L 0.01-0.08 IMMATURE GRANULOCYTES-RELATIVE PERCENT (BEAKER) 1 % 0-1 (test wcpj=0481) RAD, KNEE, COMPLETE (4 VIEWS), [id number] 11:15:00Reason for exam:->FALL , PAINFINAL REPORT Bilateral [...] MDReport Verified Date/Time: 01/06/2018 11:15:08 Reading Location: [facility] Radiology Reading Room RAD, KNEE, COMPLETE (4 VIEWS), [id number] 11:15:00Reason for exam:->FALL, PAINFINAL REPORT Bilateral knee [...] MDReport Verified Date/Time: 01/06/2018 11:15:08 Reading Location: [facility] Radiology Reading Room CBC W/PLT COUNT & AUTO [id number] 10: 58:00 Test Item Value Reference Range Comments WHITE BLOOD CELL COUNT (BEAKER) (test xmsp=796) 2.9 K/ L 3.5-10.5 RED BLOOD CELL COUNT (BEAKER) (test svki=076) 2.27 M/ L 4.63-6.08 HEMOGLOBIN (BEAKER) (test xmhy=860) 7.1 GM/DL 13.7-17.5 HEMATOCRIT (BEAKER) (test gxoc=687) 21.0 % 40.1-51.0 MEAN CORPUSCULAR VOLUME (BEAKER) (test lbdm=916) 92.5 fL 79.0-92.2 MEAN CORPUSCULAR HEMOGLOBIN (BEAKER) (test 31.3 pg 25.7-32.2 gyuy=994) MEAN CORPUSCULAR HEMOGLOBIN CONC (BEAKER) (test 33.8 GM/DL 32.3-36.5 fana=251) RED CELL DISTRIBUTION WIDTH (BEAKER) (test 17.2 % 11.6-14.4 dxij=434) PLATELET COUNT (BEAKER) (test fznd=669) 42 K/CU MM 150-450 MEAN PLATELET VOLUME (BEAKER) (test pfar=853) 10.1 fL 9.4-12.4 NUCLEATED RED BLOOD CELLS (BEAKER) (test 0 /100 WBC 0-0 pdrj=158) NEUTROPHILS RELATIVE PERCENT (BEAKER) (test 77 % tjig=582) LYMPHOCYTES RELATIVE PERCENT (BEAKER) (test 12 % twtw=015) MONOCYTES RELATIVE PERCENT (BEAKER) (test 10 % heha=171) EOSINOPHILS RELATIVE PERCENT (BEAKER) (test 1 % jbbi=809) BASOPHILS RELATIVE PERCENT (BEAKER) (test 0 % vgqy=621) NEUTROPHILS ABSOLUTE COUNT (BEAKER) (test 2.21 K/ L 1.78-5.38 qobh=443) LYMPHOCYTES ABSOLUTE COUNT (BEAKER) (test 0.33 K/ L 1.32-3.57 gnzt=058) MONOCYTES ABSOLUTE COUNT (BEAKER) (test rnag=488) 0.30 K/ L 0.30-0.82 EOSINOPHILS ABSOLUTE COUNT (BEAKER) (test 0.03 K/ L 0.04-0.54 asmn=622) BASOPHILS ABSOLUTE COUNT (BEAKER) (test tcxr=895) 0.00 K/ L 0.01-0.08 IMMATURE GRANULOCYTES-RELATIVE PERCENT (BEAKER) 0 % 0-1 (test zynf=8237) [id number] 06:06:00 Test Item Value Reference Range Comments PHOSPHORUS (BEAKER) (test tsch=934) 3.6 mg/dL 2.3-4.7 [id number] 06:06:00 Test Item Value Reference Range Comments MAGNESIUM (BEAKER) (test blpv=045) 2.0 mg/dL 1.6-2.6 BASIC METABOLIC [id number] 06:06:00 Test Item Value Reference Range Comments SODIUM (BEAKER) (test 130 meq/L 136-145 mybd=419) POTASSIUM (BEAKER) (test 4.4 meq/L 3.5-5.1 vagw=688) CHLORIDE (BEAKER) (test 100 meq/L 98-107 gxwb=218) CO2 (BEAKER) (test 23 meq/L 22-29 baid=424) BLOOD UREA NITROGEN 21 mg/dL 7-21 (BEAKER) (test ufrf=918) CREATININE (BEAKER) (test 1.11 mg/dL 0.57-1.25 spto=125) GLUCOSE RANDOM (BEAKER) 120 mg/dL 70-105 (test avbe=073) CALCIUM (BEAKER) (test 9.4 mg/dL 8.4-10.2 wwft=191) EGFR (BEAKER) (test 70 mL/min/1.73 sq m ESTIMATED GFR IS NOT uvlg=4112) ACCURATE CREATININE CLEARANCE IN PREDICTING GLOMERULAR FILTRATION RATE. ESTIMATED GFR IS NOT APPLICABLE FOR DIALYSIS PATIENTS. Specimen slightly ictericPROTHROMBIN TIME/[id number] 06:02:00 Test Item Value Reference Range Comments PROTIME (BEAKER) (test qrzq=817) 22.9 seconds 11.7-14.7 INR (BEAKER) (test cwsv=958) 2.0 <=5.9 RECOMMENDED COUMADIN/WARFARIN INR THERAPY RANGESSTANDARD DOSE: 2.0 - 3.0 Includes: PROPHYLAXIS forvenous thrombosis, systemic embolization; TREATMENT for venous thrombosis and/or pulmonary embolus.HIGH RISK: Target INR is 2.5-3.5 for patients with mechanical heart valves.CALCIUM, [id number] 06:01:00 Test Item Value Reference Range Comments CALCIUM IONIZED (BEAKER) (test raoc=673) 1.11 mmol/L 1.12-1.27 PH, BLOOD (BEAKER) (test dhmo=9940) 7.53 CORTISOL,60 [id number] 23:20:00 Test Item Value Reference Range Comments CORTISOL BASELINE NETWORKED (BEAKER) (test 4.8 mcg/dL uveo=9248) CORTISOL 30 MINUTE NETWORKED (BEAKER) (test 9.2 mcg/dL uadp=0653) CORTISOL, 60 MINUTE (BEAKER) (test qxxv=1753) 12.6 ug/dL ACTH STIMULATION TEST INTERPRETATION GUIDELINES(Synonyms: [...] to a study by Mindy et al (ENVAEH 2000,283( 8):1038-45), the ACTH Stimulation Test provides [...] serum cortisollevel 60 minutes after cosyntropin administration.CORTISOL,30 [id number] 22:35:00 Test Item Value Reference Range Comments CORTISOL BASELINE NETWORKED (BEAKER) (test 4.8 mcg/dL jndu=7231) CORTISOL, 30 MINUTE (BEAKER) (test ptbq=2707) 9.2 ug/dL ACTH STIMULATION TEST INTERPRETATION GUIDELINES(Synonyms: [...] Draw serum cortisollevel 60 minutes after cosyntropin administration.CORTISOL,[id number] 22:35:00 Test Item Value Reference Range Comments CORTISOL, BASELINE (TUNG) (test nmbc=2463) 4.8 ug/dL ACTH STIMULATION TEST INTERPRETATION GUIDELINES(Synonyms: [...] study by Mindy et al (NEVAEH 2000,283( 8):8369-45), the ACTH Stimulation Test provides important prognostic [...] serum cortisollevel 60 minutes after cosyntropin administration.U/S, [id number] 17:54:00Reason for exam:->therapeuticFINAL REPORT History: Ascites. PROCEDURE: Following informed written consent,the patient's right lower quadrant was prepped and draped in the usual sterile manner. 2% lidocaine was given locally for anesthesia. No conscious sedation was administered. Using ultrasound guidance, a 5 Israeli one-step catheter was advanced percutaneously into the [...] IMPRESSION: 1. Successful uncomplicated ultrasound-guided paracentesis. Signed: Rain, Karina MDReport Verified Date/Time: 01/05/2018 17: 54:16 Reading Location: [facility] [id number] Ultrasound Reading Room [id number] 11:19:00 Test Item Value Reference Range Comments CORTISOL, TOTAL (BEAKER) (test vmcp=0248) 2.7 ug/dL 3.7-19.4 [id number] 10:21:00 Test Item Value Reference Range Comments PHOSPHORUS (BEAKER) (test eavq=774) 2.8 mg/dL 2.3-4.7 [id number] 10:21:00 Test Item Value Reference Range Comments MAGNESIUM (BEAKER) (test fesw=330) 1.9 mg/dL 1.6-2.6 BASIC METABOLIC [id number] 10:21:00 Test Item Value Reference Range Comments SODIUM (BEAKER) (test 127 meq/L 136-145 gdzy=354) POTASSIUM (BEAKER) (test 5.0 meq/L 3.5-5.1 uzki=159) CHLORIDE (BEAKER) (test 100 meq/L 98-107 kcub=547) CO2 (BEAKER) (test 22 meq/L 22-29 aqeo=706) BLOOD UREA NITROGEN 25 mg/dL 7-21 (BEAKER) (test ehgm=501) CREATININE (BEAKER) (test 1.17 mg/dL 0.57-1.25 pish=334) GLUCOSE RANDOM (BEAKER) 84 mg/dL 70-105 (test pgiz=614) CALCIUM (BEAKER) (test 8.7 mg/dL 8.4-10.2 mmeb=251) EGFR (BEAKER) (test 65 mL/min/1.73 sq m ESTIMATED GFR IS NOT kzxg=4632) ACCURATE CREATININE CLEARANCE IN PREDICTING GLOMERULAR FILTRATION RATE. ESTIMATED GFR IS NOT APPLICABLE FOR DIALYSIS PATIENTS. Specimen slightly ictericCBC W/PLT COUNT & AUTO [id number] 08:42 :00 Test Item Value Reference Range Comments WHITE BLOOD CELL COUNT (BEAKER) (test uxgq=099) 2.7 K/ L 3.5-10.5 RED BLOOD CELL COUNT (BEAKER) (test yvpr=003) 2.33 M/ L 4.63-6.08 HEMOGLOBIN (BEAKER) (test sryz=530) 7.3 GM/DL 13.7-17.5 HEMATOCRIT (BEAKER) (test zmth=369) 22.0 % 40.1-51.0 MEAN CORPUSCULAR VOLUME (BEAKER) (test cdce=236) 94.4 fL 79.0-92.2 MEAN CORPUSCULAR HEMOGLOBIN (BEAKER) (test 31.3 pg 25.7-32.2 iufh=033) MEAN CORPUSCULAR HEMOGLOBIN CONC (BEAKER) (test 33.2 GM/DL 32.3-36.5 fwye=853) RED CELL DISTRIBUTION WIDTH (BEAKER) (test 17.2 % 11.6-14.4 gyuf=783) PLATELET COUNT (BEAKER) (test fxnb=685) 45 K/CU MM 150-450 MEAN PLATELET VOLUME (BEAKER) (test udos=489) 9.3 fL 9.4-12.4 NUCLEATED RED BLOOD CELLS (BEAKER) (test 0 /100 WBC 0-0 dwii=845) NEUTROPHILS RELATIVE PERCENT (BEAKER) (test 60 % ebqk=447) LYMPHOCYTES RELATIVE PERCENT (BEAKER) (test 17 % ifux=218) MONOCYTES RELATIVE PERCENT (BEAKER) (test 16 % iipn=120) EOSINOPHILS RELATIVE PERCENT (BEAKER) (test 6 % rqac=685) BASOPHILS RELATIVE PERCENT (BEAKER) (test 0 % jtcu=376) NEUTROPHILS ABSOLUTE COUNT (BEAKER) (test 1.63 K/ L 1.78-5.38 xmwc=908) LYMPHOCYTES ABSOLUTE COUNT (BEAKER) (test 0.45 K/ L 1.32-3.57 exzl=691) MONOCYTES ABSOLUTE COUNT (BEAKER) (test iaay=072) 0.44 K/ L 0.30-0.82 EOSINOPHILS ABSOLUTE COUNT (BEAKER) (test 0.16 K/ L 0.04-0.54 dhig=273) BASOPHILS ABSOLUTE COUNT (BEAKER) (test rhxs=025) 0.01 K/ L 0.01-0.08 IMMATURE GRANULOCYTES-RELATIVE PERCENT (BEAKER) 1 % 0-1 (test uejv=9758) (MANUAL DIFFERENTIAL)2018-01-05 08:42:00 Test Item Value Reference Range Comments TOTAL COUNTED (BEAKER) (test bfym=0047) WBC MORPHOLOGY (BEAKER) (test chqj=030) Normal PLT MORPHOLOGY (BEAKER) (test scox=248) Normal ANISOCYTOSIS (BEAKER) (test kbfr=037) 1+ few CALCIUM, [id number] 08:10:00 Test Item Value Reference Range Comments CALCIUM IONIZED (BEAKER) (test sycc=279) 1.08 mmol/L 1.12-1.27 PH, BLOOD (BEAKER) (test ptbo=2550) 7.44 PROTHROMBIN [id number] 07:12:00 Test Item Value Reference Range Comments PROTIME (BEAKER) (test wcim=660) 22.4 seconds 11.7-14.7 INR (BEAKER) (test zoeb=771) 2.0 <=5.9 RECOMMENDED COUMADIN/WARFARIN INR THERAPY RANGESSTANDARD DOSE: 2.0 - 3.0 Includes: PROPHYLAXIS forvenous thrombosis, systemic embolization; TREATMENT for venous thrombosis and/or pulmonary embolus.HIGH RISK: Target INR is 2.5-3.5 for patients with mechanical heart valves.[id number] 17:54:00 Test Item Value Reference Range Comments SODIUM (BEAKER) (test zrrs=685) 129 meq/L 136-145 POTASSIUM (BEAKER) (test lzxh=748) 5.5 meq/L 3.5-5.1 CHLORIDE (BEAKER) (test unpe=044) 101 meq/L 98-107 CO2 (BEAKER) (test igdt=144) 26 meq/L 22-29 Call [id number] with resultsCBC (HEMOGRAM ONLY)2018-01-04 07:16:00 Test Item Value Reference Range Comments WHITE BLOOD CELL COUNT (BEAKER) (test mjci=334) 2.9 K/ L 3.5-10.5 RED BLOOD CELL COUNT (BEAKER) (test jujv=875) 2.25 M/ L 4.63-6.08 HEMOGLOBIN (BEAKER) (test auva=483) 7.3 GM/DL 13.7-17.5 HEMATOCRIT (BEAKER) (test cyni=633) 21.3 % 40.1-51.0 MEAN CORPUSCULAR VOLUME (BEAKER) (test xrpg=241) 94.7 fL 79.0-92.2 MEAN CORPUSCULAR HEMOGLOBIN (BEAKER) (test 32.4 pg 25.7-32.2 hbcy=317) MEAN CORPUSCULAR HEMOGLOBIN CONC (BEAKER) (test 34.3 GM/DL 32.3-36.5 bokc=659) RED CELL DISTRIBUTION WIDTH (BEAKER) (test 17.6 % 11.6-14.4 axkv=080) PLATELET COUNT (BEAKER) (test wwkn=781) 59 K/CU MM 150-450 MEAN PLATELET VOLUME (BEAKER) (test smal=918) 11.3 fL 9.4-12.4 NUCLEATED RED BLOOD CELLS (BEAKER) (test 0 /100 WBC 0-0 tpdw=585) COMPREHENSIVE METABOLIC [id number] 06:49:00 Test Item Value Reference Range Comments TOTAL PROTEIN (BEAKER) 5.3 gm/dL 6.0-8.3 Specimen slightly (test wgqr=399) hemolyzed ALBUMIN (BEAKER) (test 3.3 g/dL 3.5-5.0 Specimen slightly uywa=1732) hemolyzed ALKALINE PHOSPHATASE 81 U/L 40-150 (BEAKER) (test favm=037) BILIRUBIN TOTAL (BEAKER) 2.4 mg/dL 0.2-1.2 Specimen slightly (test vjbo=793) hemolyzed SODIUM (BEAKER) (test 127 meq/L 136-145 inus=551) POTASSIUM (BEAKER) (test 5.7 meq/L 3.5-5.1 Specimen slightly uciw=469) hemolyzed CHLORIDE (BEAKER) (test 100 meq/L 98-107 icpf=009) CO2 (BEAKER) (test 20 meq/L 22-29 yguu=704) BLOOD UREA NITROGEN 22 mg/dL 7-21 (BEAKER) (test mwyc=204) CREATININE (BEAKER) (test 1.14 mg/dL 0.57-1.25 Specimen slightly rqjv=714) hemolyzed GLUCOSE RANDOM (BEAKER) 96 mg/dL 70-105 (test jvmm=988) CALCIUM (BEAKER) (test 8.9 mg/dL 8.4-10.2 otvp=766) AST (SGOT) (BEAKER) (test 30 U/L 5-34 Specimen slightly jvun=898) hemolyzed ALT (SGPT) (BEAKER) (test 8 U/L 6-55 Specimen slightly dcof=730) hemolyzed EGFR (BEAKER) (test 67 mL/min/1.73 sq m ESTIMATED GFR IS NOT hvoc=1223) ACCURATE CREATININE CLEARANCE IN PREDICTING GLOMERULAR FILTRATION RATE. ESTIMATED GFR IS NOT APPLICABLE FOR DIALYSIS PATIENTS. Specimen slightly ictericPROTHROMBIN TIME/[id number] 06:15:00 Test Item Value Reference Range Comments PROTIME (BEAKER) (test hmpy=373) 22.7 seconds 11.7-14.7 INR (BEAKER) (test eque=549) 2.0 <=5.9 RECOMMENDED COUMADIN/WARFARIN INR THERAPY RANGESSTANDARD DOSE: 2.0 - 3.0 Includes: PROPHYLAXIS forvenous thrombosis, systemic embolization; TREATMENT for venous thrombosis and/or pulmonary embolus.HIGH RISK: Target INR is 2.5-3.5 for patients with mechanical heart valves.VITAMIN B12 AND [id number] 16:39 :00 Test Item Value Reference Range Comments VITAMIN B12 (BEAKER) (test lzfg=166) 829 pg/mL 213-816 FOLATE (BEAKER) (test mtll=569) 18.9 ng/mL >=7.0 CALCIUM, [id number] 07:14:00 Test Item Value Reference Range Comments CALCIUM IONIZED (BEAKER) (test zkyd=361) 1.08 mmol/L 1.12-1.27 PH, BLOOD (BEAKER) (test ijyt=5313) 7.41 COMPREHENSIVE METABOLIC [id number] 07:00:00 Test Item Value Reference Range Comments TOTAL PROTEIN (BEAKER) 5.0 gm/dL 6.0-8.3 (test bjpc=462) ALBUMIN (BEAKER) (test 3.1 g/dL 3.5-5.0 fmeo=8442) ALKALINE PHOSPHATASE 65 U/L 40-150 (BEAKER) (test erdo=061) BILIRUBIN TOTAL (BEAKER) 2.5 mg/dL 0.2-1.2 (test iyvk=372) SODIUM (BEAKER) (test 127 meq/L 136-145 pgpn=648) POTASSIUM (BEAKER) (test 4.7 meq/L 3.5-5.1 xibc=716) CHLORIDE (BEAKER) (test 99 meq/L 98-107 lxjc=051) CO2 (BEAKER) (test 23 meq/L 22-29 rcti=255) BLOOD UREA NITROGEN 21 mg/dL 7-21 (BEAKER) (test muws=010) CREATININE (BEAKER) (test 1.13 mg/dL 0.57-1.25 qfou=954) GLUCOSE RANDOM (BEAKER) 92 mg/dL 70-105 (test ivak=390) CALCIUM (BEAKER) (test 8.9 mg/dL 8.4-10.2 cyes=303) AST (SGOT) (BEAKER) (test 18 U/L 5-34 lifm=079) ALT (SGPT) (BEAKER) (test 8 U/L 6-55 unty=788) EGFR (BEAKER) (test 68 mL/min/1.73 sq m ESTIMATED GFR IS NOT knxm=9277) ACCURATE CREATININE CLEARANCE IN PREDICTING GLOMERULAR FILTRATION RATE. ESTIMATED GFR IS NOT APPLICABLE FOR DIALYSIS PATIENTS. [id number] 06:37:00 Test Item Value Reference Range Comments PHOSPHORUS (BEAKER) (test zqez=195) 3.2 mg/dL 2.3-4.7 [id number] 06:37:00 Test Item Value Reference Range Comments MAGNESIUM (BEAKER) (test ucjz=899) 1.9 mg/dL 1.6-2.6 CBC (HEMOGRAM ONLY)[id number] 06:25:00 Test Item Value Reference Range Comments WHITE BLOOD CELL COUNT (BEAKER) (test puex=298) 3.1 K/ L 3.5-10.5 RED BLOOD CELL COUNT (BEAKER) (test ceom=930) 2.31 M/ L 4.63-6.08 HEMOGLOBIN (BEAKER) (test fgrv=751) 7.4 GM/DL 13.7-17.5 HEMATOCRIT (BEAKER) (test dllr=451) 21.6 % 40.1-51.0 MEAN CORPUSCULAR VOLUME (BEAKER) (test ckpy=373) 93.5 fL 79.0-92.2 MEAN CORPUSCULAR HEMOGLOBIN (BEAKER) (test 32.0 pg 25.7-32.2 sllf=694) MEAN CORPUSCULAR HEMOGLOBIN CONC (BEAKER) (test 34.3 GM/DL 32.3-36.5 jajn=103) RED CELL DISTRIBUTION WIDTH (BEAKER) (test 17.4 % 11.6-14.4 bopj=765) PLATELET COUNT (BEAKER) (test jwyk=528) 50 K/CU MM 150-450 MEAN PLATELET VOLUME (BEAKER) (test guvz=645) 10.5 fL 9.4-12.4 NUCLEATED RED BLOOD CELLS (BEAKER) (test 0 /100 WBC 0-0 czmp=286) PROTHROMBIN [id number] 06:09:00 Test Item Value Reference Range Comments PROTIME (BEAKER) (test pyun=388) 22.2 seconds 11.7-14.7 INR (BEAKER) (test cpua=024) 2.0 <=5.9 RECOMMENDED COUMADIN/WARFARIN INR THERAPY RANGESSTANDARD DOSE: 2.0 - 3.0 Includes: PROPHYLAXIS forvenous thrombosis, systemic embolization; TREATMENT for venous thrombosis and/or pulmonary embolus.HIGH RISK: Target INR is 2.5-3.5 for patients with mechanical heart valves.[id number] 07:54:00 Test Item Value Reference Range Comments PHOSPHORUS (BEAKER) (test yuiv=170) 3.2 mg/dL 2.3-4.7 [id number] 07:54:00 Test Item Value Reference Range Comments MAGNESIUM (BEAKER) (test wcsu=566) 1.4 mg/dL 1.6-2.6 COMPREHENSIVE METABOLIC [id number] 07:54:00 Test Item Value Reference Range Comments TOTAL PROTEIN (BEAKER) 5.3 gm/dL 6.0-8.3 (test uuna=194) ALBUMIN (BEAKER) (test 3.4 g/dL 3.5-5.0 zvjt=5423) ALKALINE PHOSPHATASE 55 U/L 40-150 (BEAKER) (test fgkk=343) BILIRUBIN TOTAL (BEAKER) 3.9 mg/dL 0.2-1.2 (test vcxv=292) SODIUM (BEAKER) (test 131 meq/L 136-145 hhfa=344) POTASSIUM (BEAKER) (test 4.3 meq/L 3.5-5.1 gqhv=705) CHLORIDE (BEAKER) (test 101 meq/L 98-107 gjry=877) CO2 (BEAKER) (test 23 meq/L 22-29 irhv=945) BLOOD UREA NITROGEN 19 mg/dL 7-21 (BEAKER) (test wxot=624) CREATININE (BEAKER) (test 0.97 mg/dL 0.57-1.25 nxqc=426) GLUCOSE RANDOM (BEAKER) 80 mg/dL 70-105 (test bfkf=064) CALCIUM (BEAKER) (test 9.4 mg/dL 8.4-10.2 mvyi=919) AST (SGOT) (BEAKER) (test 17 U/L 5-34 bomb=802) ALT (SGPT) (BEAKER) (test 8 U/L 6-55 goji=078) EGFR (BEAKER) (test 81 mL/min/1.73 sq m ESTIMATED GFR IS NOT xqje=3909) ACCURATE CREATININE CLEARANCE IN PREDICTING GLOMERULAR FILTRATION RATE. ESTIMATED GFR IS NOT APPLICABLE FOR DIALYSIS PATIENTS. Specimen slightly ictericCBC W/PLT COUNT & AUTO [id number] 07:14 :00 Test Item Value Reference Range Comments WHITE BLOOD CELL COUNT (BEAKER) (test zdll=942) 2.9 K/ L 3.5-10.5 RED BLOOD CELL COUNT (BEAKER) (test hdca=627) 2.55 M/ L 4.63-6.08 HEMOGLOBIN (BEAKER) (test mlzp=572) 8.1 GM/DL 13.7-17.5 HEMATOCRIT (BEAKER) (test ewlh=813) 23.7 % 40.1-51.0 MEAN CORPUSCULAR VOLUME (BEAKER) (test sehn=876) 92.9 fL 79.0-92.2 MEAN CORPUSCULAR HEMOGLOBIN (BEAKER) (test 31.8 pg 25.7-32.2 bnun=200) MEAN CORPUSCULAR HEMOGLOBIN CONC (BEAKER) (test 34.2 GM/DL 32.3-36.5 qtlp=750) RED CELL DISTRIBUTION WIDTH (BEAKER) (test 17.5 % 11.6-14.4 rqwj=303) PLATELET COUNT (BEAKER) (test bmwo=972) 50 K/CU MM 150-450 MEAN PLATELET VOLUME (BEAKER) (test ldks=815) 9.5 fL 9.4-12.4 NUCLEATED RED BLOOD CELLS (BEAKER) (test 0 /100 WBC 0-0 yilq=696) NEUTROPHILS RELATIVE PERCENT (BEAKER) (test 57 % ikja=449) LYMPHOCYTES RELATIVE PERCENT (BEAKER) (test 17 % sgvy=400) MONOCYTES RELATIVE PERCENT (BEAKER) (test 18 % onwe=974) EOSINOPHILS RELATIVE PERCENT (BEAKER) (test 7 % xyqr=819) BASOPHILS RELATIVE PERCENT (BEAKER) (test 0 % jgof=187) NEUTROPHILS ABSOLUTE COUNT (BEAKER) (test 1.65 K/ L 1.78-5.38 ekgx=126) LYMPHOCYTES ABSOLUTE COUNT (BEAKER) (test 0.49 K/ L 1.32-3.57 optm=005) MONOCYTES ABSOLUTE COUNT (BEAKER) (test eahb=496) 0.51 K/ L 0.30-0.82 EOSINOPHILS ABSOLUTE COUNT (BEAKER) (test 0.20 K/ L 0.04-0.54 wyil=213) BASOPHILS ABSOLUTE COUNT (BEAKER) (test prum=248) 0.01 K/ L 0.01-0.08 IMMATURE GRANULOCYTES-RELATIVE PERCENT (BEAKER) 1 % 0-1 (test pubz=8134) (MANUAL DIFFERENTIAL)2018-01-02 07:14:00 Test Item Value Reference Range Comments TOTAL COUNTED (BEAKER) (test ldhj=6941) CALCIUM, [id number] 07:04:00 Test Item Value Reference Range Comments CALCIUM IONIZED (BEAKER) (test iqcv=625) 1.07 mmol/L 1.12-1.27 PH, BLOOD (BEAKER) (test cqma=7753) 7.49 PROTHROMBIN [id number] 06:42:00 Test Item Value Reference Range Comments PROTIME (BEAKER) (test ltep=696) 24.6 seconds 11.7-14.7 INR (BEAKER) (test vgkc=751) 2.2 <=5.9 RECOMMENDED COUMADIN/WARFARIN INR THERAPY RANGESSTANDARD DOSE: 2.0 - 3.0 Includes: PROPHYLAXIS forvenous thrombosis, systemic embolization; TREATMENT for venous thrombosis and/or pulmonary embolus.HIGH RISK: Target INR is 2.5-3.5 for patients with mechanical heart valves.CYTOMEGALOVIRUS ANTIBODY, [id number] 14:58:00 Test Item Value Reference Range Comments CYTOMEGALOVIRUS IGG ANTIBODY (BEAKER) (test Positive lgne=721) CYTOMEGALOVIRUS ANTIBODY, [id number] 14:58:00 Test Item Value Reference Range Comments CYTOMEGALOVIRUS IGM ANTIBODY (BEAKER) (test Negative ller=395) EBV-VCA ANTIBODY, [id number] 14:58:00 Test Item Value Reference Range Comments MARCELLUS-DAVIS VCA IGG (BEAKER) (test uztz=174) Positive EBV-VCA ANTIBODY, [id number] 14:58:00 Test Item Value Reference Range Comments MARCELLUS-DAVIS VCA IGM (BEAKER) (test nial=473) Negative BODY FLUID CELL COUNT WITH [id number] 14:27:00 Test Item Value Reference Range Comments APPEARANCE FLUID (BEAKER) (test qzux=386) Slightly Hazy Clear COLOR FLUID (BEAKER) (test xvno=916) Yellow Colorless, Straw RBC FLUID (BEAKER) (test zpww=857) 378 /cu mm <=1 ADJUSTED WBC FLUID (BEAKER) (test oywq=9659) 84 /cu mm <=5 LINING CELLS (BEAKER) (test kxud=4556) 17 /cu mm <=1 NEUTROPHILS FLUID (BEAKER) (test ajro=5834) 1 % LYMPHS FLUID (BEAKER) (test rmod=375) 14 % MONO/MACROPHAGE FLUID (BEAKER) (test 85 % odsk=051) EOSINOPHILS FLUID (BEAKER) (test tuvw=784) 0 % BASO FLUID (BEAKER) (test sfza=640) 0 % CONTAINER BODY FLUID (BEAKER) (test EDTA Tube fasn=5472) U/S, [id number] 11:17:00Reason for exam:->ascitesFINAL REPORT Ultrasound guided paracentesis, 01/01/2018. Clinical History:Ascites. Sedation: None. Ornamenter Hand: Paul Butler MD Professor Of Religion: None. Estimated Blood Loss: < 1 cc. [...] was achieved with 1% lidocaine, a 5 Israeli one-step catheter was advanced into the peritoneal cavity under ultrasound guidance. After completion of drainage, the catheter was removed. There was no evidence ofcomplication. Patient Disposition: The patient was transferred to the inpatient unit from the ultrasound department after the paracentesis, in good condition. Impression:Successful ultrasound guided paracentesis. Signed: Paul Butlerort Verified Date/Time: 01/01/2018 11:17:26 Reading Location: [place] [id number] Ultrasound Reading Room CBC W/PLT COUNT & AUTO [id number] 08:55:00 Test Item Value Reference Range Comments WHITE BLOOD CELL COUNT (BEAKER) (test azuo=589) 2.6 K/ L 3.5-10.5 RED BLOOD CELL COUNT (BEAKER) (test rhfj=159) 2.17 M/ L 4.63-6.08 HEMOGLOBIN (BEAKER) (test qnnx=965) 6.9 GM/DL 13.7-17.5 HEMATOCRIT (BEAKER) (test ebyp=964) 20.6 % 40.1-51.0 MEAN CORPUSCULAR VOLUME (BEAKER) (test eauk=429) 94.9 fL 79.0-92.2 MEAN CORPUSCULAR HEMOGLOBIN (BEAKER) (test 31.8 pg 25.7-32.2 gxpa=075) MEAN CORPUSCULAR HEMOGLOBIN CONC (BEAKER) (test 33.5 GM/DL 32.3-36.5 fwdq=283) RED CELL DISTRIBUTION WIDTH (BEAKER) (test 17.0 % 11.6-14.4 okxt=754) PLATELET COUNT (BEAKER) (test qmhw=043) 43 K/CU MM 150-450 MEAN PLATELET VOLUME (BEAKER) (test hykh=932) 9.3 fL 9.4-12.4 NUCLEATED RED BLOOD CELLS (BEAKER) (test 0 /100 WBC 0-0 cglx=066) NEUTROPHILS RELATIVE PERCENT (BEAKER) (test 62 % fmko=783) LYMPHOCYTES RELATIVE PERCENT (BEAKER) (test 13 % qolq=589) MONOCYTES RELATIVE PERCENT (BEAKER) (test 18 % hapg=631) EOSINOPHILS RELATIVE PERCENT (BEAKER) (test 6 % quqr=748) BASOPHILS RELATIVE PERCENT (BEAKER) (test 0 % fmec=734) NEUTROPHILS ABSOLUTE COUNT (BEAKER) (test 1.58 K/ L 1.78-5.38 mvmo=624) LYMPHOCYTES ABSOLUTE COUNT (BEAKER) (test 0.33 K/ L 1.32-3.57 mmry=473) MONOCYTES ABSOLUTE COUNT (BEAKER) (test ymhi=780) 0.46 K/ L 0.30-0.82 EOSINOPHILS ABSOLUTE COUNT (BEAKER) (test 0.15 K/ L 0.04-0.54 ndea=811) BASOPHILS ABSOLUTE COUNT (BEAKER) (test ajcu=465) 0.01 K/ L 0.01-0.08 IMMATURE GRANULOCYTES-RELATIVE PERCENT (BEAKER) 1 % 0-1 (test mtkm=6070) (MANUAL DIFFERENTIAL)2018-01-01 08:55:00 Test Item Value Reference Range Comments TOTAL COUNTED (BEAKER) (test qhdn=1241) CALCIUM, [id number] 07:43:00 Test Item Value Reference Range Comments CALCIUM IONIZED (BEAKER) (test hxlv=541) 1.14 mmol/L 1.12-1.27 PH, BLOOD (BEAKER) (test xsic=7521) 7.52 [id number] 06:11:00 Test Item Value Reference Range Comments PHOSPHORUS (BEAKER) (test kkgq=354) 2.5 mg/dL 2.3-4.7 [id number] 06:11:00 Test Item Value Reference Range Comments MAGNESIUM (BEAKER) (test ikub=339) 1.7 mg/dL 1.6-2.6 COMPREHENSIVE METABOLIC [id number] 06:11:00 Test Item Value Reference Range Comments TOTAL PROTEIN (BEAKER) 5.6 gm/dL 6.0-8.3 (test mexp=507) ALBUMIN (BEAKER) (test 3.6 g/dL 3.5-5.0 vxfp=4939) ALKALINE PHOSPHATASE 68 U/L 40-150 (BEAKER) (test wknz=714) BILIRUBIN TOTAL (BEAKER) 2.7 mg/dL 0.2-1.2 (test uali=787) SODIUM (BEAKER) (test 132 meq/L 136-145 lpsk=224) POTASSIUM (BEAKER) (test 4.9 meq/L 3.5-5.1 cpoo=528) CHLORIDE (BEAKER) (test 102 meq/L 98-107 puck=753) CO2 (BEAKER) (test 24 meq/L 22-29 nndz=227) BLOOD UREA NITROGEN 20 mg/dL 7-21 (BEAKER) (test tgaa=064) CREATININE (BEAKER) (test 1.17 mg/dL 0.57-1.25 ikah=248) GLUCOSE RANDOM (BEAKER) 92 mg/dL 70-105 (test zxjn=289) CALCIUM (BEAKER) (test 9.7 mg/dL 8.4-10.2 grua=695) AST (SGOT) (BEAKER) (test 16 U/L 5-34 davg=676) ALT (SGPT) (BEAKER) (test 8 U/L 6-55 oogh=843) EGFR (BEAKER) (test 65 mL/min/1.73 sq m ESTIMATED GFR IS NOT wnvw=5038) ACCURATE CREATININE CLEARANCE IN PREDICTING GLOMERULAR FILTRATION RATE. ESTIMATED GFR IS NOT APPLICABLE FOR DIALYSIS PATIENTS. Specimen slightly ictericPROTHROMBIN [id number] 06:00:00 Test Item Value Reference Range Comments PROTIME (BEAKER) (test yfpd=140) 24.0 seconds 11.7-14.7 INR (BEAKER) (test fcuy=243) 2.2 <=5.9 RECOMMENDED COUMADIN/WARFARIN INR THERAPY RANGESSTANDARD DOSE: 2.0 - 3.0 Includes: PROPHYLAXIS forvenous thrombosis, systemic embolization; TREATMENT for venous thrombosis and/or pulmonary embolus.HIGH RISK: Target INR is 2.5-3.5 for patients with mechanical heart valves.CT, CHEST, WITHOUT [id number] 19:24:00FINAL REPORT HISTORY: Lung nodule, >=1cm COMPARISON [...] splenomegaly and upper abdominal ascites. Signed: [facility] Verified Date/Time: 12/31/2017 19:24:12 Reading Location: [address] Consult Reading Room 07: 24 PMPERIPHERAL BLOOD SMEAR - HOLD [id number] 19:18:00 Test Item Value Reference Range Comments PERIPHERAL SMEAR SAVE (BEAKER) prepared and saved smear, (test gwyh=8861) 12/31/17 RETICULOCYTE [id number] 19:14:00 Test Item Value Reference Range Comments RETICULOCYTE COUNT PCT (BEAKER) (test pjlh=529) 3.5 % 0.5-1.8 LACTATE DEHYDROGENASE (LDH)2017-12-31 17:47:00 Test Item Value Reference Range Comments LACTATE DEHYDROGENASE (BEAKER) (test eihb=642) 112 U/L 125-220 BLOOD GAS, [id number] 17:27:00 Test Item Value Reference Range Comments PH ARTERIAL (BEAKER) (test immv=249) 7.45 7.35-7.45 PCO2 ARTERIAL (BEAKER) (test jjwx=108) 36 mmHg 35-45 PO2 ARTERIAL (BEAKER) (test ldma=765) 76 mmHg 80-90 O2 SATURATION ARTERIAL (BEAKER) (test qdtc=926) 96.1 % 96.0-97.0 HCO3 ARTERIAL (BEAKER) (test vowg=151) 24 mmol/L 21-29 BASE EXCESS ARTERIAL (BEAKER) (test rxlr=939) 0.2 mmol/L -2.0-3.0 PATIENT TEMPERATURE (BEAKER) (test tevp=0485) 36.4 C FIO2 (BEAKER) (test lvye=7976) 21.0 % MYOCARD IMAGING, MULTI, PHARM, [id number] 15:12:00FINAL REPORT PROCEDURE: Rest/Stress MYOCARDIAL PERFUSION SPECT with regadenoson\XA9\ CPT CODE: 75181 INDICATION: Liver transplant evaluation HISTORY: Cardiac risk [...] extracardiac tracer distribution. 6. No previous [facility] study for comparison. NONINVASIVE RISK STRATIFICATION: The above findings are considered low risk (<1% annual mortality rate) based on the following criterion:- Normal orsmall myocardial perfusion defect at rest or with stress(JACC. 2012;59(9):857-81.) Signed: Quinten Napiereport Verified Date/Time: 12/31/2017 15:12:03 Reading Location: [place] [id number] Reading Room BILIRUBIN, [id number] 14:10:00 Test Item Value Reference Range Comments BILIRUBIN DIRECT (BEAKER) (test jdad=945) 1.6 mg/dL 0.1-0.5 HEMOGLOBIN AND [id number] 13:22:00 Test Item Value Reference Range Comments HEMOGLOBIN (BEAKER) (test iizx=070) 7.3 GM/DL 13.7-17.5 HEMATOCRIT (BEAKER) (test trwe=606) 21.9 % 40.1-51.0 CBC W/PLT COUNT & AUTO [id number] 11:06:00 Test Item Value Reference Range Comments WHITE BLOOD CELL COUNT (BEAKER) (test bjjf=780) 2.2 K/ L 3.5-10.5 RED BLOOD CELL COUNT (BEAKER) (test hcox=317) 2.07 M/ L 4.63-6.08 HEMOGLOBIN (BEAKER) (test ziow=930) 6.8 GM/DL 13.7-17.5 HEMATOCRIT (BEAKER) (test llpt=227) 19.6 % 40.1-51.0 MEAN CORPUSCULAR VOLUME (BEAKER) (test dehd=005) 94.7 fL 79.0-92.2 MEAN CORPUSCULAR HEMOGLOBIN (BEAKER) (test 32.9 pg 25.7-32.2 oisy=257) MEAN CORPUSCULAR HEMOGLOBIN CONC (BEAKER) (test 34.7 GM/DL 32.3-36.5 gebj=609) RED CELL DISTRIBUTION WIDTH (BEAKER) (test 16.9 % 11.6-14.4 asyu=849) PLATELET COUNT (BEAKER) (test wecp=523) 47 K/CU MM 150-450 MEAN PLATELET VOLUME (BEAKER) (test vwdt=540) 9.7 fL 9.4-12.4 NUCLEATED RED BLOOD CELLS (BEAKER) (test 0 /100 WBC 0-0 rugo=230) NEUTROPHILS RELATIVE PERCENT (BEAKER) (test 54 % banv=483) LYMPHOCYTES RELATIVE PERCENT (BEAKER) (test 17 % drzt=173) MONOCYTES RELATIVE PERCENT (BEAKER) (test 21 % zlfy=352) EOSINOPHILS RELATIVE PERCENT (BEAKER) (test 8 % gclm=854) BASOPHILS RELATIVE PERCENT (BEAKER) (test 1 % jhth=917) NEUTROPHILS ABSOLUTE COUNT (BEAKER) (test 1.17 K/ L 1.78-5.38 zxms=812) LYMPHOCYTES ABSOLUTE COUNT (BEAKER) (test 0.36 K/ L 1.32-3.57 zwea=453) MONOCYTES ABSOLUTE COUNT (BEAKER) (test bxum=525) 0.45 K/ L 0.30-0.82 EOSINOPHILS ABSOLUTE COUNT (BEAKER) (test 0.17 K/ L 0.04-0.54 hxrg=215) BASOPHILS ABSOLUTE COUNT (BEAKER) (test eixm=097) 0.01 K/ L 0.01-0.08 IMMATURE GRANULOCYTES-RELATIVE PERCENT (BEAKER) 1 % 0-1 (test kqlo=8412) (MANUAL DIFFERENTIAL)2017-12-31 11:06:00 Test Item Value Reference Range Comments TOTAL COUNTED (BEAKER) (test jucc=0539) [id number] 08:37:00 Test Item Value Reference Range Comments PROTIME (BEAKER) (test tiyp=262) 24.0 seconds 11.7-14.7 INR (BEAKER) (test sxkx=887) 2.2 <=5.9 PARTIAL THROMBOPLASTIN TIME (BEAKER) (test 55.2 seconds 22.5-36.0 erux=938) RECOMMENDED COUMADIN/WARFARIN INR THERAPY RANGESSTANDARD DOSE: 2.0 - 3.0 Includes: PROPHYLAXIS forvenous thrombosis, systemic embolization; TREATMENT for venous thrombosis and/or pulmonary embolus.HIGH RISK: Target INR is 2.5-3.5 for patients with mechanical heart valves.COMPREHENSIVE METABOLIC [id number] 06:37:00 Test Item Value Reference Range Comments TOTAL PROTEIN (BEAKER) 5.7 gm/dL 6.0-8.3 (test axfr=152) ALBUMIN (BEAKER) (test 3.7 g/dL 3.5-5.0 kgjd=3954) ALKALINE PHOSPHATASE 70 U/L 40-150 (BEAKER) (test imqn=349) BILIRUBIN TOTAL (BEAKER) 2.6 mg/dL 0.2-1.2 (test iugh=305) SODIUM (BEAKER) (test 130 meq/L 136-145 zhlt=719) POTASSIUM (BEAKER) (test 5.2 meq/L 3.5-5.1 dhro=289) CHLORIDE (BEAKER) (test 100 meq/L 98-107 batv=493) CO2 (BEAKER) (test 25 meq/L 22-29 mbcr=082) BLOOD UREA NITROGEN 20 mg/dL 7-21 (BEAKER) (test pwla=942) CREATININE (BEAKER) (test 1.08 mg/dL 0.57-1.25 ebtc=892) GLUCOSE RANDOM (BEAKER) 91 mg/dL 70-105 (test begz=638) CALCIUM (BEAKER) (test 9.6 mg/dL 8.4-10.2 jgii=618) AST (SGOT) (BEAKER) (test 16 U/L 5-34 uhgx=254) ALT (SGPT) (BEAKER) (test 6 U/L 6-55 wnpk=099) EGFR (BEAKER) (test 72 mL/min/1.73 sq m ESTIMATED GFR IS NOT hwvv=3784) ACCURATE CREATININE CLEARANCE IN PREDICTING GLOMERULAR FILTRATION RATE. ESTIMATED GFR IS NOT APPLICABLE FOR DIALYSIS PATIENTS. Specimen slightly [id number] 06:01:00 Test Item Value Reference Range Comments RPR SCREEN (BEAKER) (test ivdb=264) Nonreactive Nonreactive CRYPTOCOCCAL [id number] 05:59:00 Test Item Value Reference Range Comments CRYPTOCOCCAL ANTIGEN, SERUM (BEAKER) (test Negative Negative, Interference yqqo=3835) RAD, MANDIBLE, MIN 4 [id number] 01:37:00Reason for exam:->liver transplant evalShould this be [...] small scattered sclerotic calvarial foci. Signed: Slick Barcenasort Verified Date/Time: 12/31/2017 01:37:57 Reading Location: [address] Reading Room Electronically signed by: SLICK BARCENAS M.D. on 04/2018 01:37 AMRAD, CHEST, 2 [id number] 23:32:00Reason for exam:-> liver transplant evalShould this [...] further evaluation if warranted. Signed: Slick Barcenas Verified Date/Time: 12/30/2017 23:32:31 Reading Location: [address] Reading Room HEMOGLOBIN [id number] 22:54:00 Test Item Value Reference Range Comments HEMOGLOBIN A1C (BEAKER) (test mgmp=609) 4.1 % 4.3-6.1 HEPATITIS B SURFACE [id number] 16:31:00 Test Item Value Reference Range Comments HEPATITIS B SURFACE ANTIBODY (BEAKER) (test < mIU/mL <8.0 btnm=850) HEPATITIS B SURFACE [id number] 16:29:00 Test Item Value Reference Range Comments HEPATITIS B SURFACE ANTIGEN (2) (BEAKER) (test Nonreactive Nonreactive kuob=2798) HEPATITIS B CORE ANTIBODY, [id number] 16:29:00 Test Item Value Reference Range Comments HEPATITIS B CORE IGM ANTIBODY (BEAKER) (test Nonreactive Nonreactive oxyi=676) HEPATITIS A ANTIBODY, [id number] 16:29:00 Test Item Value Reference Range Comments HEPATITIS A IGM ANTIBODY (BEAKER) (test Nonreactive Nonreactive zfoj=030) HEPATITIS B CORE ANTIBODY, [id number] 16:29:00 Test Item Value Reference Range Comments HEPATITIS B CORE TOTAL ANTIBODY (BEAKER) (test Nonreactive Nonreactive prpq=460) [id number] 16:26:00 Test Item Value Reference Range Comments T4 TOTAL (BEAKER) (test zicu=208) 3.5 ug/dL 4.9-11.7 [id number] 16:26:00 Test Item Value Reference Range Comments T3 TOTAL (BEAKER) (test udqm=956) 42 ng/dL 48-159 [id number] 16:24:00 Test Item Value Reference Range Comments FERRITIN (BEAKER) (test pkub=417) 1460 ng/mL 5-275 VITAMIN D, [id number] 16:24:00 Test Item Value Reference Range Comments VITAMIN D 25-OH (BEAKER) (test crqs=4972) 6.9 ng/mL 6.6-49.9 Effective 08/06/2017: Reference Range ChangeNew: 6.6-49.9 ng/mL Previous: 13.0 -47.8 ng/mLRecommended Vitamin D Target Range: 30.0-40.0 ng/[id number] 16: 24:00 Test Item Value Reference Range Comments THYROID STIMULATING HORMONE (BEAKER) (test 1.55 uIU/mL 0.35-4.94 cbxz=440) CARCINOEMBRYONIC ANTIGEN (CEA)2017-12-30 16:24:00 Test Item Value Reference Range Comments CARCINOEMBRYONIC ANTIGEN (BEAKER) (test rtpo=862) 3.0 ng/mL 0.0-5.0 [id number] 16:23:00 Test Item Value Reference Range Comments PROSTATE SPECIFIC ANTIGEN (BEAKER) (test ufob=189) 0.1 ng/mL 0.0-4.0 HIV-1 ANTIGEN WITH HIV-1/2 [id number] 16:23:00 Test Item Value Reference Range Comments HIV-1 ANTIGEN WITH HIV 1\T\2 ANTIBODY (2) Nonreactive Nonreactive (BEAKER) (test tnyl=8568) HEPATITIS C [id number] 16:23:00 Test Item Value Reference Range Comments HEPATITIS C ANTIBODY (BEAKER) (test cqwz=827) Nonreactive Nonreactive LIPID [id number] 16:06:00 Test Item Value Reference Range Comments TRIGLYCERIDES (BEAKER) (test jrcy=375) 38 mg/dL CHOLESTEROL (BEAKER) (test zuec=490) 51 mg/dL HDL CHOLESTEROL (BEAKER) (test fdfm=699) 10 mg/dL LDL CHOLESTEROL CALCULATED (BEAKER) (test jgjj=603) 33 mg/dL Triglyceride Reference Range: Low Risk [...] Value Reference Range Comments IRON (BEAKER) (test gefe=610) 90 ug/dL 40-160 TOTAL IRON BINDING CAPACITY (BEAKER) (test 85 ug/dL 250-450 gnhs=859) IRON % SATURATION (2) (BEAKER) (test bpzb=4288) 106 % 20-55 [id number] 16:04:00 Test Item Value Reference Range Comments TRANSFERRIN (BEAKER) (test yexs=670) 65 mg/dL 174-382 Specimen slightly ictericURIC [id number] 16:02:00 Test Item Value Reference Range Comments URIC ACID (BEAKER) (test xuah=864) 8.5 mg/dL 2.6-7.2 Specimen slightly [id number] 15:50:00 Test Item Value Reference Range Comments FIBRINOGEN LEVEL (BEAKER) (test rxsc=087) 161 mg/dl 225-434 BODY FLUID CULTURE + GRAM [id number] 11:45:00 Test Item Value Reference Range Comments CULTURE (BEAKER) (test mosv=1516) No growth GRAM STAIN RESULT (BEAKER) (test No WBCs cfwx=4072) GRAM STAIN RESULT (BEAKER) (test No organisms seen kxwf=26857) CBC W/PLT COUNT & AUTO [id number] 08:05:00 Test Item Value Reference Range Comments WHITE BLOOD CELL COUNT (BEAKER) (test vhon=687) 2.0 K/ L 3.5-10.5 RED BLOOD CELL COUNT (BEAKER) (test jhfk=041) 2.20 M/ L 4.63-6.08 HEMOGLOBIN (BEAKER) (test mlwa=700) 7.1 GM/DL 13.7-17.5 HEMATOCRIT (BEAKER) (test jfro=337) 20.8 % 40.1-51.0 MEAN CORPUSCULAR VOLUME (BEAKER) (test fqhb=488) 94.5 fL 79.0-92.2 MEAN CORPUSCULAR HEMOGLOBIN (BEAKER) (test 32.3 pg 25.7-32.2 mpxn=565) MEAN CORPUSCULAR HEMOGLOBIN CONC (BEAKER) (test 34.1 GM/DL 32.3-36.5 fzji=547) RED CELL DISTRIBUTION WIDTH (BEAKER) (test 17.0 % 11.6-14.4 lbdz=752) PLATELET COUNT (BEAKER) (test jqzb=853) 52 K/CU MM 150-450 MEAN PLATELET VOLUME (BEAKER) (test zfva=256) 10.7 fL 9.4-12.4 NUCLEATED RED BLOOD CELLS (BEAKER) (test 0 /100 WBC 0-0 iacv=276) NEUTROPHILS RELATIVE PERCENT (BEAKER) (test 55 % yxeu=615) LYMPHOCYTES RELATIVE PERCENT (BEAKER) (test 16 % fqar=796) MONOCYTES RELATIVE PERCENT (BEAKER) (test 20 % jlyp=850) EOSINOPHILS RELATIVE PERCENT (BEAKER) (test 8 % rsdq=927) BASOPHILS RELATIVE PERCENT (BEAKER) (test 1 % doob=998) NEUTROPHILS ABSOLUTE COUNT (BEAKER) (test 1.10 K/ L 1.78-5.38 xkfp=288) LYMPHOCYTES ABSOLUTE COUNT (BEAKER) (test 0.32 K/ L 1.32-3.57 vuls=221) MONOCYTES ABSOLUTE COUNT (BEAKER) (test rbyd=953) 0.40 K/ L 0.30-0.82 EOSINOPHILS ABSOLUTE COUNT (BEAKER) (test 0.16 K/ L 0.04-0.54 mndp=886) BASOPHILS ABSOLUTE COUNT (BEAKER) (test sygt=541) 0.01 K/ L 0.01-0.08 IMMATURE GRANULOCYTES-RELATIVE PERCENT (BEAKER) 1 % 0-1 (test rtie=9395) (MANUAL DIFFERENTIAL)2017-12-30 08:05:00 Test Item Value Reference Range Comments TOTAL COUNTED (BEAKER) (test qsqk=1648) URINALYSIS W/ [id number] 06:46:00 Test Item Value Reference Range Comments COLOR (BEAKER) (test jpya=469) Yellow CLARITY (BEAKER) (test vmrf=467) Clear SPECIFIC GRAVITY UA (BEAKER) (test vblv=951) 1.008 1.001-1.035 PH UA (BEAKER) (test xnhl=194) 6.0 5.0-8.0 PROTEIN UA (BEAKER) (test tnhi=910) Negative Negative GLUCOSE UA (BEAKER) (test rcue=463) Negative Negative KETONES UA (BEAKER) (test fnlu=612) Negative Negative BILIRUBIN UA (BEAKER) (test wefa=569) Negative Negative BLOOD UA (BEAKER) (test brym=544) Negative Negative NITRITE UA (BEAKER) (test xyym=350) Negative Negative LEUKOCYTE ESTERASE UA (BEAKER) (test crmu=861) Negative Negative UROBILINOGEN UA (BEAKER) (test cztd=771) 0.2 mg/dL 0.2-1.0 RBC UA (BEAKER) (test cwoi=980) 0 /HPF WBC UA (BEAKER) (test brgq=109) 0 /HPF HYALINE CASTS (BEAKER) (test ceus=671) 5 /LPF SOURCE(BEAKER) (test lbov=7270) Urine, Voided SODIUM, RANDOM [id number] 06:35:00 Test Item Value Reference Range Comments SODIUM URINE (BEAKER) (test kfpp=862) < meq/L Reference Range: No NormalsPROTEIN, RANDOM [id number] 06:35:00 Test Item Value Reference Range Comments PROTEIN, URINE (BEAKER) (test ohdj=0125) < mg/dL 0-14 [id number] 06:21:00 Test Item Value Reference Range Comments MAGNESIUM (BEAKER) (test 1.8 mg/dL 1.6-2.6 Specimen slightly hemolyzed bkbe=198) [id number] 06:21:00 Test Item Value Reference Range Comments PHOSPHORUS (BEAKER) (test 2.9 mg/dL 2.3-4.7 Specimen slightly hemolyzed ledy=330) COMPREHENSIVE METABOLIC [id number] 06:21:00 Test Item Value Reference Range Comments TOTAL PROTEIN (BEAKER) 5.6 gm/dL 6.0-8.3 Specimen slightly (test tboc=679) hemolyzed ALBUMIN (BEAKER) (test 3.5 g/dL 3.5-5.0 Specimen slightly cclo=3161) hemolyzed ALKALINE PHOSPHATASE 75 U/L 40-150 (BEAKER) (test jsuo=853) BILIRUBIN TOTAL (BEAKER) 3.0 mg/dL 0.2-1.2 Specimen slightly (test bacz=596) hemolyzed SODIUM (BEAKER) (test 127 meq/L 136-145 omxe=216) POTASSIUM (BEAKER) (test 5.2 meq/L 3.5-5.1 Specimen slightly doax=007) hemolyzed CHLORIDE (BEAKER) (test 97 meq/L 98-107 yagu=897) CO2 (BEAKER) (test 24 meq/L 22-29 ysfu=425) BLOOD UREA NITROGEN 22 mg/dL 7-21 (BEAKER) (test gugs=640) CREATININE (BEAKER) (test 1.11 mg/dL 0.57-1.25 Specimen slightly zild=857) hemolyzed GLUCOSE RANDOM (BEAKER) 94 mg/dL 70-105 (test qxej=078) CALCIUM (BEAKER) (test 9.4 mg/dL 8.4-10.2 nzwu=661) AST (SGOT) (BEAKER) (test 22 U/L 5-34 Specimen slightly ujbi=051) hemolyzed ALT (SGPT) (BEAKER) (test 7 U/L 6-55 Specimen slightly lcvj=876) hemolyzed EGFR (BEAKER) (test 70 mL/min/1.73 sq m ESTIMATED GFR IS NOT qlrg=5789) ACCURATE CREATININE CLEARANCE IN PREDICTING GLOMERULAR FILTRATION RATE. ESTIMATED GFR IS NOT APPLICABLE FOR DIALYSIS PATIENTS. Specimen slightly ictericCREATININE, RANDOM [id number] 06:19:00 Test Item Value Reference Range Comments CREATININE URINE (BEAKER) (test frmc=801) 60.6 mg/dL Reference Range: No [id number] 13:43:00 Test Item Value Reference Range Comments ETHANOL (BEAKER) (test dwfd=159) < mg/dL <=10 COMPREHENSIVE METABOLIC [id number] 08:23:00 Test Item Value Reference Range Comments TOTAL PROTEIN (BEAKER) 5.5 gm/dL 6.0-8.3 (test ibsv=447) ALBUMIN (BEAKER) (test 3.3 g/dL 3.5-5.0 zxnx=8369) ALKALINE PHOSPHATASE 85 U/L 40-150 (BEAKER) (test jdri=145) BILIRUBIN TOTAL (BEAKER) 3.8 mg/dL 0.2-1.2 (test kepn=887) SODIUM (BEAKER) (test 125 meq/L 136-145 uoej=931) POTASSIUM (BEAKER) (test 4.7 meq/L 3.5-5.1 yhim=168) CHLORIDE (BEAKER) (test 96 meq/L 98-107 uqeu=252) CO2 (BEAKER) (test 21 meq/L 22-29 pwcu=081) BLOOD UREA NITROGEN 22 mg/dL 7-21 (BEAKER) (test vafq=683) CREATININE (BEAKER) (test 1.26 mg/dL 0.57-1.25 ykll=209) GLUCOSE RANDOM (BEAKER) 95 mg/dL 70-105 (test xhqp=889) CALCIUM (BEAKER) (test 9.1 mg/dL 8.4-10.2 qhlp=220) AST (SGOT) (BEAKER) (test 20 U/L 5-34 inti=550) ALT (SGPT) (BEAKER) (test 8 U/L 6-55 glbs=596) EGFR (BEAKER) (test 60 mL/min/1.73 sq m ESTIMATED GFR IS NOT wgoz=6984) ACCURATE CREATININE CLEARANCE IN PREDICTING GLOMERULAR FILTRATION RATE. ESTIMATED GFR IS NOT APPLICABLE FOR DIALYSIS PATIENTS. Specimen slightly ictericCBC W/PLT COUNT & AUTO [id number] 07:17 :00 Test Item Value Reference Range Comments WHITE BLOOD CELL COUNT (BEAKER) (test gtet=771) 2.8 K/ L 3.5-10.5 RED BLOOD CELL COUNT (BEAKER) (test rzlq=055) 2.28 M/ L 4.63-6.08 HEMOGLOBIN (BEAKER) (test aifc=602) 7.3 GM/DL 13.7-17.5 HEMATOCRIT (BEAKER) (test erim=770) 21.4 % 40.1-51.0 MEAN CORPUSCULAR VOLUME (BEAKER) (test aabz=966) 93.9 fL 79.0-92.2 MEAN CORPUSCULAR HEMOGLOBIN (BEAKER) (test 32.0 pg 25.7-32.2 nupc=866) MEAN CORPUSCULAR HEMOGLOBIN CONC (BEAKER) (test 34.1 GM/DL 32.3-36.5 lmpl=114) RED CELL DISTRIBUTION WIDTH (BEAKER) (test 16.9 % 11.6-14.4 bfpx=267) PLATELET COUNT (BEAKER) (test jpdu=607) 52 K/CU MM 150-450 MEAN PLATELET VOLUME (BEAKER) (test jdnt=891) 9.8 fL 9.4-12.4 NUCLEATED RED BLOOD CELLS (BEAKER) (test 0 /100 WBC 0-0 fzbx=277) NEUTROPHILS RELATIVE PERCENT (BEAKER) (test 61 % cjvz=906) LYMPHOCYTES RELATIVE PERCENT (BEAKER) (test 14 % eyri=708) MONOCYTES RELATIVE PERCENT (BEAKER) (test 18 % nkms=047) EOSINOPHILS RELATIVE PERCENT (BEAKER) (test 7 % norv=661) BASOPHILS RELATIVE PERCENT (BEAKER) (test 0 % dbpk=263) NEUTROPHILS ABSOLUTE COUNT (BEAKER) (test 1.69 K/ L 1.78-5.38 uiwh=864) LYMPHOCYTES ABSOLUTE COUNT (BEAKER) (test 0.38 K/ L 1.32-3.57 nsri=601) MONOCYTES ABSOLUTE COUNT (BEAKER) (test mfku=210) 0.51 K/ L 0.30-0.82 EOSINOPHILS ABSOLUTE COUNT (BEAKER) (test 0.18 K/ L 0.04-0.54 nfot=537) BASOPHILS ABSOLUTE COUNT (BEAKER) (test elmw=746) 0.01 K/ L 0.01-0.08 IMMATURE GRANULOCYTES-RELATIVE PERCENT (BEAKER) 1 % 0-1 (test wfjq=0749) CT, [id number] 22:20:00FINAL REPORT EXAM: CT of the abdomen [...] MDReport Verified Date/Time: 12/28/2017 22:20:52 Reading Location: [address] Reading Room CBC W/PLT COUNT & AUTO [id number] 18:06:00 Test Item Value Reference Range Comments WHITE BLOOD CELL COUNT (BEAKER) (test lvbd=330) 2.9 K/ L 3.5-10.5 RED BLOOD CELL COUNT (BEAKER) (test kcuw=967) 2.03 M/ L 4.63-6.08 HEMOGLOBIN (BEAKER) (test tzwn=851) 6.5 GM/DL 13.7-17.5 HEMATOCRIT (BEAKER) (test skne=347) 19.2 % 40.1-51.0 MEAN CORPUSCULAR VOLUME (BEAKER) (test zsew=405) 94.6 fL 79.0-92.2 MEAN CORPUSCULAR HEMOGLOBIN (BEAKER) (test 32.0 pg 25.7-32.2 rvwl=819) MEAN CORPUSCULAR HEMOGLOBIN CONC (BEAKER) (test 33.9 GM/DL 32.3-36.5 qcvl=334) RED CELL DISTRIBUTION WIDTH (BEAKER) (test 17.6 % 11.6-14.4 oicp=848) PLATELET COUNT (BEAKER) (test tfeb=782) 46 K/CU MM 150-450 MEAN PLATELET VOLUME (BEAKER) (test mtcv=069) 9.3 fL 9.4-12.4 NUCLEATED RED BLOOD CELLS (BEAKER) (test 0 /100 WBC 0-0 hjwg=001) NEUTROPHILS RELATIVE PERCENT (BEAKER) (test 66 % lkwx=144) LYMPHOCYTES RELATIVE PERCENT (BEAKER) (test 12 % jmiw=830) MONOCYTES RELATIVE PERCENT (BEAKER) (test 15 % vbhb=461) EOSINOPHILS RELATIVE PERCENT (BEAKER) (test 6 % sxie=519) BASOPHILS RELATIVE PERCENT (BEAKER) (test 0 % wavq=601) NEUTROPHILS ABSOLUTE COUNT (BEAKER) (test 1.92 K/ L 1.78-5.38 dvms=869) LYMPHOCYTES ABSOLUTE COUNT (BEAKER) (test 0.36 K/ L 1.32-3.57 oagu=805) MONOCYTES ABSOLUTE COUNT (BEAKER) (test wfgb=230) 0.44 K/ L 0.30-0.82 EOSINOPHILS ABSOLUTE COUNT (BEAKER) (test 0.16 K/ L 0.04-0.54 xlop=139) BASOPHILS ABSOLUTE COUNT (BEAKER) (test qnha=619) 0.01 K/ L 0.01-0.08 IMMATURE GRANULOCYTES-RELATIVE PERCENT (BEAKER) 1 % 0-1 (test ddod=7994) CBC W/PLT COUNT & AUTO [id number] 12:30:00 Test Item Value Reference Range Comments WHITE BLOOD CELL COUNT (BEAKER) (test cscg=854) 3.1 K/ L 3.5-10.5 RED BLOOD CELL COUNT (BEAKER) (test ikyb=550) 2.09 M/ L 4.63-6.08 HEMOGLOBIN (BEAKER) (test lgfq=924) 6.8 GM/DL 13.7-17.5 HEMATOCRIT (BEAKER) (test yvsb=339) 19.9 % 40.1-51.0 MEAN CORPUSCULAR VOLUME (BEAKER) (test efel=347) 95.2 fL 79.0-92.2 MEAN CORPUSCULAR HEMOGLOBIN (BEAKER) (test 32.5 pg 25.7-32.2 lrfp=332) MEAN CORPUSCULAR HEMOGLOBIN CONC (BEAKER) (test 34.2 GM/DL 32.3-36.5 cjgd=792) RED CELL DISTRIBUTION WIDTH (BEAKER) (test 17.5 % 11.6-14.4 whyi=034) PLATELET COUNT (BEAKER) (test ysbg=545) 65 K/CU MM 150-450 MEAN PLATELET VOLUME (BEAKER) (test yxjs=802) 10.6 fL 9.4-12.4 NUCLEATED RED BLOOD CELLS (BEAKER) (test 0 /100 WBC 0-0 hbdr=809) NEUTROPHILS RELATIVE PERCENT (BEAKER) (test 60 % rouo=560) LYMPHOCYTES RELATIVE PERCENT (BEAKER) (test 14 % srfa=038) MONOCYTES RELATIVE PERCENT (BEAKER) (test 17 % nwfg=804) EOSINOPHILS RELATIVE PERCENT (BEAKER) (test 8 % zdri=137) BASOPHILS RELATIVE PERCENT (BEAKER) (test 0 % rjos=322) NEUTROPHILS ABSOLUTE COUNT (BEAKER) (test 1.85 K/ L 1.78-5.38 nvhy=195) LYMPHOCYTES ABSOLUTE COUNT (BEAKER) (test 0.42 K/ L 1.32-3.57 kbdu=072) MONOCYTES ABSOLUTE COUNT (BEAKER) (test jkbv=520) 0.52 K/ L 0.30-0.82 EOSINOPHILS ABSOLUTE COUNT (BEAKER) (test 0.26 K/ L 0.04-0.54 ldrt=701) BASOPHILS ABSOLUTE COUNT (BEAKER) (test nikq=741) 0.01 K/ L 0.01-0.08 IMMATURE GRANULOCYTES-RELATIVE PERCENT (BEAKER) 1 % 0-1 (test grbp=7001) U/S, [id number] 06:59:00Limit fluid removal to no more than 5 litersReason for exam:->ascites, concern for sbpShould thisbe performed at the bedside?->NoFINAL REPORT Paracentesis dated 2017 Procedure: Ultrasound-guided paracentesis. Preprocedure diagnosis: Ascites Postprocedure diagnosis: Ascites Conscious sedation: None. Radiologist: Lena Lynn M.D. Professor Of Religion: None Anesthesia: 1% Xylocaine mixed with sodium bicarbonate local anesthesia. Technique: After obtaining informed consent, ultrasound-guided paracentesis was performed under usual sterile technique. Using a 5 belgian drainage catheter, puncture was made in the right lower quadrant abdomen. Approximately 5000 cc of serous fluid was removed. Patient tolerated the procedure well without complication. Complication: None Graft/ Implant: None Estimated Blood Loss: NoneImpression: Ultrasound-guided paracentesis. Signed: Lena Lynn [facility] Verified Date/Time: 12/28/2017 06:59 :16 Reading Location: [facility] C013Y CT Body Reading Room ALPHA FETOPROTEIN (AFP), TUMOR [id number] 06:22:00 Test Item Value Reference Range Comments ALPHA-FETOPROTEIN (BEAKER) (test wlqq=4094) 4.1 ng/mL <10.0 COMPREHENSIVE METABOLIC [id number] 06:00:00 Test Item Value Reference Range Comments TOTAL PROTEIN (BEAKER) 5.3 gm/dL 6.0-8.3 (test cilj=932) ALBUMIN (BEAKER) (test 2.7 g/dL 3.5-5.0 wxxg=1261) ALKALINE PHOSPHATASE 94 U/L 40-150 (BEAKER) (test dxbp=176) BILIRUBIN TOTAL (BEAKER) 3.7 mg/dL 0.2-1.2 (test gknr=037) SODIUM (BEAKER) (test 124 meq/L 136-145 nyay=183) POTASSIUM (BEAKER) (test 4.6 meq/L 3.5-5.1 wrlc=019) CHLORIDE (BEAKER) (test 96 meq/L 98-107 pfbk=460) CO2 (BEAKER) (test 22 meq/L 22-29 rxga=875) BLOOD UREA NITROGEN 22 mg/dL 7-21 (BEAKER) (test hnyp=953) CREATININE (BEAKER) (test 1.40 mg/dL 0.57-1.25 dkdi=004) GLUCOSE RANDOM (BEAKER) 89 mg/dL 70-105 (test gvmw=176) CALCIUM (BEAKER) (test 8.8 mg/dL 8.4-10.2 eonx=274) AST (SGOT) (BEAKER) (test 25 U/L 5-34 dsdf=465) ALT (SGPT) (BEAKER) (test 10 U/L 6-55 joiu=235) EGFR (BEAKER) (test 53 mL/min/1.73 sq m ESTIMATED GFR IS NOT dmuq=4433) ACCURATE CREATININE CLEARANCE IN PREDICTING GLOMERULAR FILTRATION RATE. ESTIMATED GFR IS NOT APPLICABLE FOR DIALYSIS PATIENTS. Specimen slightly ictericCBC W/PLT COUNT & AUTO [id number] 05:50 :00 Test Item Value Reference Range Comments WHITE BLOOD CELL COUNT (BEAKER) (test xgex=006) 3.1 K/ L 3.5-10.5 RED BLOOD CELL COUNT (BEAKER) (test fmzv=597) 2.00 M/ L 4.63-6.08 HEMOGLOBIN (BEAKER) (test jymk=841) 6.4 GM/DL 13.7-17.5 HEMATOCRIT (BEAKER) (test ylvs=229) 18.9 % 40.1-51.0 MEAN CORPUSCULAR VOLUME (BEAKER) (test kncm=138) 94.5 fL 79.0-92.2 MEAN CORPUSCULAR HEMOGLOBIN (BEAKER) (test 32.0 pg 25.7-32.2 kjrp=797) MEAN CORPUSCULAR HEMOGLOBIN CONC (BEAKER) (test 33.9 GM/DL 32.3-36.5 nmzx=574) RED CELL DISTRIBUTION WIDTH (BEAKER) (test 17.9 % 11.6-14.4 dxby=364) PLATELET COUNT (BEAKER) (test xeyo=298) 59 K/CU MM 150-450 MEAN PLATELET VOLUME (BEAKER) (test vjhp=823) 10.4 fL 9.4-12.4 NUCLEATED RED BLOOD CELLS (BEAKER) (test 0 /100 WBC 0-0 flhw=503) NEUTROPHILS RELATIVE PERCENT (BEAKER) (test 63 % cimg=704) LYMPHOCYTES RELATIVE PERCENT (BEAKER) (test 14 % ewxt=585) MONOCYTES RELATIVE PERCENT (BEAKER) (test 15 % cakt=500) EOSINOPHILS RELATIVE PERCENT (BEAKER) (test 7 % jpdk=887) BASOPHILS RELATIVE PERCENT (BEAKER) (test 0 % sqre=641) NEUTROPHILS ABSOLUTE COUNT (BEAKER) (test 1.94 K/ L 1.78-5.38 mhaf=394) LYMPHOCYTES ABSOLUTE COUNT (BEAKER) (test 0.44 K/ L 1.32-3.57 sdfy=409) MONOCYTES ABSOLUTE COUNT (BEAKER) (test wruj=435) 0.47 K/ L 0.30-0.82 EOSINOPHILS ABSOLUTE COUNT (BEAKER) (test 0.21 K/ L 0.04-0.54 anhv=550) BASOPHILS ABSOLUTE COUNT (BEAKER) (test qkdr=154) 0.01 K/ L 0.01-0.08 IMMATURE GRANULOCYTES-RELATIVE PERCENT (BEAKER) 1 % 0-1 (test errh=7321) BODY FLUID CELL COUNT WITH [id number] 20:39:00 Test Item Value Reference Range Comments APPEARANCE FLUID (BEAKER) (test bqdr=262) Slightly Hazy Clear COLOR FLUID (BEAKER) (test jppe=514) Yellow Colorless, Straw RBC FLUID (BEAKER) (test tvlf=522) 90 /cu mm <=1 ADJUSTED WBC FLUID (BEAKER) (test goun=2772) 47 /cu mm <=5 LINING CELLS (BEAKER) (test yoku=0972) 3 /cu mm <=1 NEUTROPHILS FLUID (BEAKER) (test hguz=3563) 2 % LYMPHS FLUID (BEAKER) (test nvfk=857) 19 % MONO/MACROPHAGE FLUID (BEAKER) (test 79 % hslp=971) EOSINOPHILS FLUID (BEAKER) (test fylv=150) 0 % BASO FLUID (BEAKER) (test kyoq=122) 0 % CONTAINER BODY FLUID (BEAKER) (test EDTA Tube wltx=0910) ALBUMIN, BODY [id number] 20:14:00 Test Item Value Reference Range Comments ALBUMIN FLUID (BEAKER) (test ygec=336) 0.4 gm/dL Reference Range: No Normals Assay performance has not been validated for this type of specimen.BASIC METABOLIC [id number] 10:31:00 Test Item Value Reference Range Comments SODIUM (BEAKER) (test 125 meq/L 136-145 coiy=544) POTASSIUM (BEAKER) (test 4.5 meq/L 3.5-5.1 ecpe=610) CHLORIDE (BEAKER) (test 98 meq/L 98-107 oddv=761) CO2 (BEAKER) (test 20 meq/L 22-29 fsnc=304) BLOOD UREA NITROGEN 22 mg/dL 7-21 (BEAKER) (test ffeq=685) CREATININE (BEAKER) (test 1.45 mg/dL 0.57-1.25 qzfl=056) GLUCOSE RANDOM (BEAKER) 87 mg/dL 70-105 (test kbxu=198) CALCIUM (BEAKER) (test 8.6 mg/dL 8.4-10.2 uthn=981) EGFR (BEAKER) (test 51 mL/min/1.73 sq m ESTIMATED GFR IS NOT nbcp=6777) ACCURATE CREATININE CLEARANCE IN PREDICTING GLOMERULAR FILTRATION RATE. ESTIMATED GFR IS NOT APPLICABLE FOR DIALYSIS PATIENTS. Specimen slightly ictericHEPATIC FUNCTION [id number] 10:31:00 Test Item Value Reference Range Comments TOTAL PROTEIN (BEAKER) (test upqu=984) 5.8 gm/dL 6.0-8.3 ALBUMIN (BEAKER) (test xoyt=9500) 2.4 g/dL 3.5-5.0 BILIRUBIN TOTAL (BEAKER) (test ancw=480) 4.1 mg/dL 0.2-1.2 BILIRUBIN DIRECT (BEAKER) (test popc=688) 3.1 mg/dL 0.1-0.5 ALKALINE PHOSPHATASE (BEAKER) (test eazi=119) 126 U/L 40-150 AST (SGOT) (BEAKER) (test pzpi=983) 28 U/L 5-34 ALT (SGPT) (BEAKER) (test zrza=535) 13 U/L 6-55 Specimen slightly ictericCBC W/PLT COUNT & AUTO [id number] 10:09 :00 Test Item Value Reference Range Comments WHITE BLOOD CELL COUNT (BEAKER) (test ehic=811) 5.5 K/ L 3.5-10.5 RED BLOOD CELL COUNT (BEAKER) (test tdgz=803) 2.56 M/ L 4.63-6.08 HEMOGLOBIN (BEAKER) (test yuvr=600) 8.1 GM/DL 13.7-17.5 HEMATOCRIT (BEAKER) (test uojo=581) 24.2 % 40.1-51.0 MEAN CORPUSCULAR VOLUME (BEAKER) (test nwva=849) 94.5 fL 79.0-92.2 MEAN CORPUSCULAR HEMOGLOBIN (BEAKER) (test 31.6 pg 25.7-32.2 zkoc=248) MEAN CORPUSCULAR HEMOGLOBIN CONC (BEAKER) (test 33.5 GM/DL 32.3-36.5 ijyi=076) RED CELL DISTRIBUTION WIDTH (BEAKER) (test 18.6 % 11.6-14.4 fxbg=107) PLATELET COUNT (BEAKER) (test pnle=620) 86 K/CU MM 150-450 MEAN PLATELET VOLUME (BEAKER) (test osdd=456) 9.7 fL 9.4-12.4 NUCLEATED RED BLOOD CELLS (BEAKER) (test 0 /100 WBC 0-0 uvwt=251) NEUTROPHILS RELATIVE PERCENT (BEAKER) (test 65 % xhsg=150) LYMPHOCYTES RELATIVE PERCENT (BEAKER) (test 13 % zpjh=482) MONOCYTES RELATIVE PERCENT (BEAKER) (test 14 % qssa=150) EOSINOPHILS RELATIVE PERCENT (BEAKER) (test 6 % wnmm=944) BASOPHILS RELATIVE PERCENT (BEAKER) (test 0 % werv=174) NEUTROPHILS ABSOLUTE COUNT (BEAKER) (test 3.59 K/ L 1.78-5.38 qesv=759) LYMPHOCYTES ABSOLUTE COUNT (BEAKER) (test 0.73 K/ L 1.32-3.57 dtal=822) MONOCYTES ABSOLUTE COUNT (BEAKER) (test suax=610) 0.76 K/ L 0.30-0.82 EOSINOPHILS ABSOLUTE COUNT (BEAKER) (test 0.33 K/ L 0.04-0.54 shco=716) BASOPHILS ABSOLUTE COUNT (BEAKER) (test femu=417) 0.02 K/ L 0.01-0.08 IMMATURE GRANULOCYTES-RELATIVE PERCENT (BEAKER) 1 % 0-1 (test ptav=1203) PROTHROMBIN [id number] 07:51:00 Test Item Value Reference Range Comments PROTIME (BEAKER) (test bqve=087) 23.8 seconds 11.7-14.7 INR (BEAKER) (test dgzj=745) 2.1 <=5.9 RECOMMENDED COUMADIN/WARFARIN INR THERAPY RANGESSTANDARD DOSE: 2.0 - 3.0 Includes: PROPHYLAXIS forvenous thrombosis, systemic embolization; TREATMENT for venous thrombosis and/or pulmonary embolus.HIGH RISK: Target INR is 2.5-3.5 for patients with mechanical heart valves.BLOOD [id number] 05:02:00 Test Item Value Reference Range Comments CULTURE (BEAKER) (test ghsd=0774) No growth in 5 days BLOOD [id number] 05:02:00 Test Item Value Reference Range Comments CULTURE (BEAKER) (test dihb=5108) No growth in 5 days BODY FLUID CULTURE + GRAM [id number] 09:05:00 Test Item Value Reference Range Comments CULTURE (BEAKER) (test xuqm=7218) No growth GRAM STAIN RESULT (BEAKER) (test No White blood cells seen wtln=7056) GRAM STAIN RESULT (BEAKER) (test No organisms seen nkcl=88226) RAPID DRUG SCREEN, [id number] 23:13:00 Test Item Value Reference Range Comments BARBITURATE URINE (BEAKER) (test evth=592) Negative Negative BENZODIAZEPINE SCREEN URINE (BEAKER) (test Negative Negative tyvl=318) COCAINE (METAB.) SCREEN (BEAKER) (test lpjd=1689) Negative Negative METHADONE SCREEN (BEAKER) (test pbvf=4633) Negative Negative OPIATE SCREEN URINE (BEAKER) (test jftq=723) Negative Negative CANNABINOID SCREEN URINE (BEAKER) (test saiy=886) Negative Negative AMPH/METHAMPH SCREEN (BEAKER) (test ciaf=7271) Negative Negative PHENCYCLIDINE SCREEN URINE (BEAKER) (test opte=110) Negative Negative OXYCODONE SCREEN URINE (BEAKER) (test fghr=8666) Negative Negative DRUG CUTOFF CONC.Cocaine 300 ng/mL Cannabinoid 50 ng/mL Benzodiazepine 200 ng/mLBarbiturate 200 ng/ mLPhencyclidine 25 ng/mLOpiate 300 ng/mLMethadone 300 ng/mLAmphetamine/ 1000 ng/mL MethamphetamineOxycodone 300 ng/mLThis assay provides an unconfirmed qualitative test result for the clinical management of patients in emergency situations. Chain of custody not maintained. Some vbip-csx-unxzstc medications, as well as adulterants, may cause inaccurate results. Clinical correlation should be applied. A more comprehensive drug screen or confirmation of a detected drug may be performed upon request.MR, ABDOMEN, [id number] 13:52:00FINAL REPORT MRI of the abdomen with [...] MDReport Verified Date/Time: 09/05/2017 13:52:35 Reading Location: [facility] C013Y CT BodyReading Room CBC W/PLT COUNT & AUTO [id number] 05:46:00 Test Item Value Reference Range Comments WHITE BLOOD CELL COUNT (BEAKER) (test ehoj=510) 4.7 K/ L 3.5-10.5 RED BLOOD CELL COUNT (BEAKER) (test pzrn=811) 2.49 M/ L 4.63-6.08 HEMOGLOBIN (BEAKER) (test kbal=708) 7.9 GM/DL 13.7-17.5 HEMATOCRIT (BEAKER) (test gknp=633) 22.6 % 40.1-51.0 MEAN CORPUSCULAR VOLUME (BEAKER) (test tzrg=957) 90.8 fL 79.0-92.2 MEAN CORPUSCULAR HEMOGLOBIN (BEAKER) (test 31.7 pg 25.7-32.2 dgal=792) MEAN CORPUSCULAR HEMOGLOBIN CONC (BEAKER) (test 35.0 GM/DL 32.3-36.5 wffd=387) RED CELL DISTRIBUTION WIDTH (BEAKER) (test 18.8 % 11.6-14.4 ytid=710) PLATELET COUNT (BEAKER) (test kfbo=217) 60 K/CU MM 150-450 MEAN PLATELET VOLUME (BEAKER) (test dczk=676) 9.2 fL 9.4-12.4 NUCLEATED RED BLOOD CELLS (BEAKER) (test 0 /100 WBC 0-0 maxr=279) NEUTROPHILS RELATIVE PERCENT (BEAKER) (test 65 % vwpf=096) LYMPHOCYTES RELATIVE PERCENT (BEAKER) (test 13 % oezu=865) MONOCYTES RELATIVE PERCENT (BEAKER) (test 15 % upde=168) EOSINOPHILS RELATIVE PERCENT (BEAKER) (test 6 % awdi=359) BASOPHILS RELATIVE PERCENT (BEAKER) (test 0 % oppx=104) NEUTROPHILS ABSOLUTE COUNT (BEAKER) (test 3.05 K/ L 1.78-5.38 hupe=147) LYMPHOCYTES ABSOLUTE COUNT (BEAKER) (test 0.62 K/ L 1.32-3.57 knic=527) MONOCYTES ABSOLUTE COUNT (BEAKER) (test vnsh=524) 0.68 K/ L 0.30-0.82 EOSINOPHILS ABSOLUTE COUNT (BEAKER) (test 0.28 K/ L 0.04-0.54 zebm=932) BASOPHILS ABSOLUTE COUNT (BEAKER) (test lydz=568) 0.02 K/ L 0.01-0.08 IMMATURE GRANULOCYTES-RELATIVE PERCENT (BEAKER) 1 % 0-1 (test cxat=9625) BASIC METABOLIC [id number] 05:44:00 Test Item Value Reference Range Comments SODIUM (BEAKER) (test 127 meq/L 136-145 dogz=878) POTASSIUM (BEAKER) (test 4.5 meq/L 3.5-5.1 nwec=193) CHLORIDE (BEAKER) (test 101 meq/L 98-107 xyut=567) CO2 (BEAKER) (test 19 meq/L 22-29 drkn=306) BLOOD UREA NITROGEN 17 mg/dL 7-21 (BEAKER) (test uqbk=543) CREATININE (BEAKER) (test 0.91 mg/dL 0.57-1.25 tdch=556) GLUCOSE RANDOM (BEAKER) 107 mg/dL 70-105 (test dqzm=907) CALCIUM (BEAKER) (test 9.4 mg/dL 8.4-10.2 mgro=110) EGFR (BEAKER) (test 87 mL/min/1.73 sq m ESTIMATED GFR IS NOT bovc=4676) ACCURATE CREATININE CLEARANCE IN PREDICTING GLOMERULAR FILTRATION RATE. ESTIMATED GFR IS NOT APPLICABLE FOR DIALYSIS PATIENTS. Specimen moderately ictericHEPATIC FUNCTION [id number] 05:44:00 Test Item Value Reference Range Comments TOTAL PROTEIN (BEAKER) (test wlpm=507) 5.6 gm/dL 6.0-8.3 ALBUMIN (BEAKER) (test oeng=3192) 3.3 g/dL 3.5-5.0 BILIRUBIN TOTAL (BEAKER) (test hhsx=063) 10.3 mg/dL 0.2-1.2 BILIRUBIN DIRECT (BEAKER) (test cuta=176) 6.8 mg/dL 0.1-0.5 ALKALINE PHOSPHATASE (BEAKER) (test kzeu=355) 103 U/L 40-150 AST (SGOT) (BEAKER) (test ncwq=299) 17 U/L 5-34 ALT (SGPT) (BEAKER) (test bocs=974) 8 U/L 6-55 Specimen moderately ictericPT/[id number] 05:31:00 Test Item Value Reference Range Comments PROTIME (BEAKER) (test yuiz=854) 25.6 seconds 11.7-14.7 INR (BEAKER) (test ilwn=671) 2.3 <=5.9 PARTIAL THROMBOPLASTIN TIME (BEAKER) (test 51.6 seconds 22.5-36.0 uiuw=504) RECOMMENDED COUMADIN/WARFARIN INR THERAPY RANGESSTANDARD DOSE: 2.0 - 3.0 Includes: PROPHYLAXIS forvenous thrombosis, systemic embolization; TREATMENT for venous thrombosis and/or pulmonary embolus.HIGH RISK: Target INR is 2.5-3.5 for patients with mechanical heart valves.PROTHROMBIN TIME/[id number] 05:30: 00 Test Item Value Reference Range Comments PROTIME (BEAKER) (test bmhu=775) 25.6 seconds 11.7-14.7 INR (BEAKER) (test dosf=559) 2.3 <=5.9 RECOMMENDED COUMADIN/WARFARIN INR THERAPY RANGESSTANDARD DOSE: 2.0 - 3.0 Includes: PROPHYLAXIS forvenous thrombosis, systemic embolization; TREATMENT for venous thrombosis and/or pulmonary embolus.HIGH RISK: Target INR is 2.5-3.5 for patients with mechanical heart valves.BODY FLUID CELL COUNT WITH [id number] 19:30:00 Test Item Value Reference Range Comments APPEARANCE FLUID (BEAKER) (test rvyw=607) Slightly Hazy Clear COLOR FLUID (BEAKER) (test xbwy=059) Yellow Colorless, Straw RBC FLUID (BEAKER) (test hhje=445) 100 /cu mm <=1 ADJUSTED WBC FLUID (BEAKER) (test bdhz=7354) 36 /cu mm <=5 LINING CELLS (BEAKER) (test uwvo=1810) 4 /cu mm <=1 NEUTROPHILS FLUID (BEAKER) (test wmri=3391) 0 % LYMPHS FLUID (BEAKER) (test zkgy=042) 20 % MONO/MACROPHAGE FLUID (BEAKER) (test 80 % ghue=386) EOSINOPHILS FLUID (BEAKER) (test vres=809) 0 % BASO FLUID (BEAKER) (test xwox=241) 0 % CONTAINER BODY FLUID (BEAKER) (test EDTA Tube teel=4310) U/S, [id number] 16:21:00Reason for exam:->ascitesShould this be performed at the bedside?->NoFINAL REPORT PROCEDURE: Ultrasound-guided paracentesis. INDICATION: 52-year-old man with ascites. DESCRIPTION: After obtaining informed written consent, ultrasound scan of the abdomen identified ascites in the right lower quadrant. The overlying skin was prepped and draped in the usual, sterile fashion and local 1% lidocaine anesthesia was administered. A 5 Israeli catheter was advanced into the peritoneal cavity and 13,200 cc of cloudy yellow fluid was removed. The catheter was removed without immediate complication. Samples were sent for analysis. IMPRESSION:Uncomplicated ultrasound-guided paracentesis with 13,200 cc fluid removed. Signed: Candice Mckeon MDReport Verified Date/Time: 2016 16:21:22 Reading Location: [facility] [id number] Ultrasound Reading Room BASIC METABOLIC [id number] 11:07:00 Test Item Value Reference Range Comments SODIUM (BEAKER) (test 127 meq/L 136-145 woai=145) POTASSIUM (BEAKER) (test 4.1 meq/L 3.5-5.1 izqe=582) CHLORIDE (BEAKER) (test 101 meq/L 98-107 udle=926) CO2 (BEAKER) (test 23 meq/L 22-29 jbjb=622) BLOOD UREA NITROGEN 17 mg/dL 7-21 (BEAKER) (test cghi=329) CREATININE (BEAKER) (test 1.06 mg/dL 0.57-1.25 rrxp=983) GLUCOSE RANDOM (BEAKER) 104 mg/dL 70-105 (test aqda=536) CALCIUM (BEAKER) (test 8.9 mg/dL 8.4-10.2 ocns=110) EGFR (BEAKER) (test 73 mL/min/1.73 sq m ESTIMATED GFR IS NOT vjln=5061) ACCURATE CREATININE CLEARANCE IN PREDICTING GLOMERULAR FILTRATION RATE. ESTIMATED GFR IS NOT APPLICABLE FOR DIALYSIS PATIENTS. Specimen markedly ictericHEPATIC FUNCTION [id number] 11:07:00 Test Item Value Reference Range Comments TOTAL PROTEIN (BEAKER) (test abkr=194) 5.4 gm/dL 6.0-8.3 ALBUMIN (BEAKER) (test thfy=7641) 2.8 g/dL 3.5-5.0 BILIRUBIN TOTAL (BEAKER) (test bjwz=594) 12.7 mg/dL 0.2-1.2 BILIRUBIN DIRECT (BEAKER) (test lrhu=488) 7.8 mg/dL 0.1-0.5 ALKALINE PHOSPHATASE (BEAKER) (test ajrt=113) 90 U/L 40-150 AST (SGOT) (BEAKER) (test egxt=374) 22 U/L 5-34 ALT (SGPT) (BEAKER) (test pwkm=048) 11 U/L 6-55 Specimen markedly ictericPT/[id number] 11:02:00 Test Item Value Reference Range Comments PROTIME (BEAKER) (test kade=143) 23.4 seconds 11.7-14.7 INR (BEAKER) (test xmuf=590) 2.1 <=5.9 PARTIAL THROMBOPLASTIN TIME (BEAKER) (test 48.7 seconds 22.5-36.0 cltv=417) RECOMMENDED COUMADIN/WARFARIN INR THERAPY RANGESSTANDARD DOSE: 2.0 - 3.0 Includes: PROPHYLAXIS forvenous thrombosis, systemic embolization; TREATMENT for venous thrombosis and/or pulmonary embolus.HIGH RISK: Target INR is 2.5-3.5 for patients with mechanical heart valves.PROTHROMBIN TIME/[id number] 11:01: 00 Test Item Value Reference Range Comments PROTIME (BEAKER) (test cwww=679) 23.4 seconds 11.7-14.7 INR (BEAKER) (test nwew=255) 2.1 <=5.9 RECOMMENDED COUMADIN/WARFARIN INR THERAPY RANGESSTANDARD DOSE: 2.0 - 3.0 Includes: PROPHYLAXIS forvenous thrombosis, systemic embolization; TREATMENT for venous thrombosis and/or pulmonary embolus.HIGH RISK: Target INR is 2.5-3.5 for patients with mechanical heart valves.CBC W/PLT COUNT & AUTO [id number] 10:56:00 Test Item Value Reference Range Comments WHITE BLOOD CELL COUNT (BEAKER) (test kbza=539) 4.4 K/ L 3.5-10.5 RED BLOOD CELL COUNT (BEAKER) (test ugcl=185) 2.48 M/ L 4.63-6.08 HEMOGLOBIN (BEAKER) (test fezu=022) 7.8 GM/DL 13.7-17.5 HEMATOCRIT (BEAKER) (test xjmf=351) 22.7 % 40.1-51.0 MEAN CORPUSCULAR VOLUME (BEAKER) (test xffk=216) 91.5 fL 79.0-92.2 MEAN CORPUSCULAR HEMOGLOBIN (BEAKER) (test 31.5 pg 25.7-32.2 wyta=155) MEAN CORPUSCULAR HEMOGLOBIN CONC (BEAKER) (test 34.4 GM/DL 32.3-36.5 xixo=004) RED CELL DISTRIBUTION WIDTH (BEAKER) (test 18.6 % 11.6-14.4 nctj=885) PLATELET COUNT (BEAKER) (test webp=967) 60 K/CU MM 150-450 MEAN PLATELET VOLUME (BEAKER) (test dqtz=568) 8.8 fL 9.4-12.4 NUCLEATED RED BLOOD CELLS (BEAKER) (test 0 /100 WBC 0-0 gjsf=921) NEUTROPHILS RELATIVE PERCENT (BEAKER) (test 61 % pvlu=534) LYMPHOCYTES RELATIVE PERCENT (BEAKER) (test 9 % faio=028) MONOCYTES RELATIVE PERCENT (BEAKER) (test 21 % qfmb=060) EOSINOPHILS RELATIVE PERCENT (BEAKER) (test 8 % eqhy=634) BASOPHILS RELATIVE PERCENT (BEAKER) (test 1 % hvqd=756) NEUTROPHILS ABSOLUTE COUNT (BEAKER) (test 2.68 K/ L 1.78-5.38 cdob=699) LYMPHOCYTES ABSOLUTE COUNT (BEAKER) (test 0.38 K/ L 1.32-3.57 kvnf=428) MONOCYTES ABSOLUTE COUNT (BEAKER) (test wrfi=075) 0.94 K/ L 0.30-0.82 EOSINOPHILS ABSOLUTE COUNT (BEAKER) (test 0.33 K/ L 0.04-0.54 snps=647) BASOPHILS ABSOLUTE COUNT (BEAKER) (test adfn=123) 0.02 K/ L 0.01-0.08 IMMATURE GRANULOCYTES-RELATIVE PERCENT (BEAKER) 1 % 0-1 (test gnaw=8446) URINALYSIS W/ [id number] 06:18:00 Test Item Value Reference Range Comments COLOR (BEAKER) (test cxza=979) Dark Yellow CLARITY (BEAKER) (test dviq=462) Clear SPECIFIC GRAVITY UA (BEAKER) (test cnrw=308) 1.008 1.001-1.035 PH UA (BEAKER) (test wybq=545) 6.0 5.0-8.0 PROTEIN UA (BEAKER) (test pctg=977) Negative Negative GLUCOSE UA (BEAKER) (test jysp=435) Negative Negative KETONES UA (BEAKER) (test bbif=473) Negative Negative BILIRUBIN UA (BEAKER) (test bknu=662) Positive Negative BLOOD UA (BEAKER) (test wrgv=878) Moderate Negative NITRITE UA (BEAKER) (test opct=324) Negative Negative LEUKOCYTE ESTERASE UA (BEAKER) (test geat=242) Negative Negative UROBILINOGEN UA (BEAKER) (test esru=159) 0.2 mg/dL 0.2-1.0 RBC UA (BEAKER) (test bwax=146) 80 /HPF WBC UA (BEAKER) (test uckq=891) 10 /HPF HYALINE CASTS (BEAKER) (test tosk=859) 5 /LPF AMORPHOUS CRYSTALS (BEAKER) (test ibgu=0816) Rare SOURCE(BEAKER) (test nsrb=9652) CBC W/PLT COUNT & AUTO [id number] 00:00:00 Test Item Value Reference Range Comments WHITE BLOOD CELL COUNT (BEAKER) (test vbjm=485) 3.7 K/ L 3.5-10.5 RED BLOOD CELL COUNT (BEAKER) (test ecax=756) 2.20 M/ L 4.63-6.08 HEMOGLOBIN (BEAKER) (test rrmu=856) 7.0 GM/DL 13.7-17.5 HEMATOCRIT (BEAKER) (test tfza=364) 20.2 % 40.1-51.0 MEAN CORPUSCULAR VOLUME (BEAKER) (test zmej=777) 91.8 fL 79.0-92.2 MEAN CORPUSCULAR HEMOGLOBIN (BEAKER) (test 31.8 pg 25.7-32.2 dqus=575) MEAN CORPUSCULAR HEMOGLOBIN CONC (BEAKER) (test 34.7 GM/DL 32.3-36.5 wqan=817) RED CELL DISTRIBUTION WIDTH (BEAKER) (test 19.3 % 11.6-14.4 ctgi=504) PLATELET COUNT (BEAKER) (test jiiv=572) 63 K/CU MM 150-450 MEAN PLATELET VOLUME (BEAKER) (test igwr=514) 9.1 fL 9.4-12.4 NUCLEATED RED BLOOD CELLS (BEAKER) (test 0 /100 WBC 0-0 xzee=129) NEUTROPHILS RELATIVE PERCENT (BEAKER) (test 62 % ccsp=549) LYMPHOCYTES RELATIVE PERCENT (BEAKER) (test 11 % myvx=089) MONOCYTES RELATIVE PERCENT (BEAKER) (test 19 % iwpd=439) EOSINOPHILS RELATIVE PERCENT (BEAKER) (test 7 % veno=161) BASOPHILS RELATIVE PERCENT (BEAKER) (test 1 % qefk=515) NEUTROPHILS ABSOLUTE COUNT (BEAKER) (test 2.29 K/ L 1.78-5.38 sdml=099) LYMPHOCYTES ABSOLUTE COUNT (BEAKER) (test 0.39 K/ L 1.32-3.57 edos=468) MONOCYTES ABSOLUTE COUNT (BEAKER) (test extd=295) 0.71 K/ L 0.30-0.82 EOSINOPHILS ABSOLUTE COUNT (BEAKER) (test 0.27 K/ L 0.04-0.54 xvvu=209) BASOPHILS ABSOLUTE COUNT (BEAKER) (test kepr=560) 0.02 K/ L 0.01-0.08 IMMATURE GRANULOCYTES-RELATIVE PERCENT (BEAKER) 1 % 0-1 (test btjj=0285) PROTHROMBIN [id number] 22:52:00 Test Item Value Reference Range Comments PROTIME (BEAKER) (test dxoo=057) 25.6 seconds 11.7-14.7 INR (BEAKER) (test hktj=960) 2.3 <=5.9 RECOMMENDED COUMADIN/WARFARIN INR THERAPY RANGESSTANDARD DOSE: 2.0 - 3.0 Includes: PROPHYLAXIS forvenous thrombosis, systemic embolization; TREATMENT for venous thrombosis and/or pulmonary embolus.HIGH RISK: Target INR is 2.5-3.5 for patients with mechanical heart valves.[id number] 22:52:00 Test Item Value Reference Range Comments MAGNESIUM (BEAKER) (test cwpc=230) 1.3 mg/dL 1.6-2.6 BASIC METABOLIC [id number] 22:52:00 Test Item Value Reference Range Comments SODIUM (BEAKER) (test 124 meq/L 136-145 rjaq=176) POTASSIUM (BEAKER) (test 4.1 meq/L 3.5-5.1 uvln=834) CHLORIDE (BEAKER) (test 99 meq/L 98-107 cpct=891) CO2 (BEAKER) (test 18 meq/L 22-29 ltwe=196) BLOOD UREA NITROGEN 16 mg/dL 7-21 (BEAKER) (test aisj=247) CREATININE (BEAKER) (test 0.97 mg/dL 0.57-1.25 kmxg=478) GLUCOSE RANDOM (BEAKER) 99 mg/dL 70-105 (test ztbn=093) CALCIUM (BEAKER) (test 8.7 mg/dL 8.4-10.2 wbbp=890) EGFR (BEAKER) (test 81 mL/min/1.73 sq m ESTIMATED GFR IS NOT hnue=5194) ACCURATE CREATININE CLEARANCE IN PREDICTING GLOMERULAR FILTRATION RATE. ESTIMATED GFR IS NOT APPLICABLE FOR DIALYSIS PATIENTS. Specimen markedly ictericHEPATIC FUNCTION [id number] 22:52:00 Test Item Value Reference Range Comments TOTAL PROTEIN (BEAKER) (test spar=329) 5.3 gm/dL 6.0-8.3 ALBUMIN (BEAKER) (test obbi=3821) 2.8 g/dL 3.5-5.0 BILIRUBIN TOTAL (BEAKER) (test butd=718) 12.7 mg/dL 0.2-1.2 BILIRUBIN DIRECT (BEAKER) (test qgyp=373) 7.6 mg/dL 0.1-0.5 ALKALINE PHOSPHATASE (BEAKER) (test ouaj=579) 93 U/L 40-150 AST (SGOT) (BEAKER) (test hhis=055) 21 U/L 5-34 ALT (SGPT) (BEAKER) (test hsye=147) 9 U/L 6-55 Specimen markedly ictericALPHA FETOPROTEIN (AFP), TUMOR [id number] 16:39: 00 Test Item Value Reference Range Comments ALPHA-FETOPROTEIN (BEAKER) (test qiju=4892) 2.5 ng/mL <10.0 BASIC METABOLIC [id number] 15:53:00 Test Item Value Reference Range Comments SODIUM (BEAKER) (test 126 meq/L 136-145 rvaq=957) POTASSIUM (BEAKER) (test 5.1 meq/L 3.5-5.1 dtek=021) CHLORIDE (BEAKER) (test 101 meq/L 98-107 eiyd=292) CO2 (BEAKER) (test 19 meq/L 22-29 zqwo=363) BLOOD UREA NITROGEN 14 mg/dL 7-21 (BEAKER) (test yeom=686) CREATININE (BEAKER) (test 1.01 mg/dL 0.57-1.25 dtzu=478) GLUCOSE RANDOM (BEAKER) 104 mg/dL 70-105 (test dlrk=732) CALCIUM (BEAKER) (test 9.0 mg/dL 8.4-10.2 hgmr=563) EGFR (BEAKER) (test 78 mL/min/1.73 sq m ESTIMATED GFR IS NOT pycs=1710) ACCURATE CREATININE CLEARANCE IN PREDICTING GLOMERULAR FILTRATION RATE. ESTIMATED GFR IS NOT APPLICABLE FOR DIALYSIS PATIENTS. Specimen moderately ictericHEPATIC FUNCTION [id number] 15:53:00 Test Item Value Reference Range Comments TOTAL PROTEIN (BEAKER) (test ndhs=252) 6.1 gm/dL 6.0-8.3 ALBUMIN (BEAKER) (test lkyn=9158) 2.6 g/dL 3.5-5.0 BILIRUBIN TOTAL (BEAKER) (test wtbe=362) 10.4 mg/dL 0.2-1.2 BILIRUBIN DIRECT (BEAKER) (test cgwk=402) 7.5 mg/dL 0.1-0.5 ALKALINE PHOSPHATASE (BEAKER) (test aioo=468) 124 U/L 40-150 AST (SGOT) (BEAKER) (test kasi=586) 29 U/L 5-34 ALT (SGPT) (BEAKER) (test cxee=013) 12 U/L 6-55 Specimen moderately ictericGAMMA GLUTAMYL TRANSFERASE (GGT)[id number] 15:53:00 Test Item Value Reference Range Comments GAMMA GLUTAMYL TRANSFERASE (BEAKER) (test tyce=479) 17 U/L 9-64 Specimen moderately ictericPROTHROMBIN [id number] 15:40:00 Test Item Value Reference Range Comments PROTIME (BEAKER) (test gvvh=378) 22.6 seconds 11.7-14.7 INR (BEAKER) (test xrlw=237) 2.0 <=5.9 RECOMMENDED COUMADIN/WARFARIN INR THERAPY RANGESSTANDARD DOSE: 2.0 - 3.0 Includes: PROPHYLAXIS forvenous thrombosis, systemic embolization; TREATMENT for venous thrombosis and/or pulmonary embolus.HIGH RISK: Target INR is 2.5-3.5 for patients with mechanical heart valves.CBC W/PLT COUNT & AUTO [id number] 15:38:00 Test Item Value Reference Range Comments WHITE BLOOD CELL COUNT (BEAKER) (test hdoj=937) 7.3 K/ L 3.5-10.5 RED BLOOD CELL COUNT (BEAKER) (test devz=671) 2.78 M/ L 4.63-6.08 HEMOGLOBIN (BEAKER) (test jajd=840) 9.1 GM/DL 13.7-17.5 HEMATOCRIT (BEAKER) (test dugk=771) 27.3 % 40.1-51.0 MEAN CORPUSCULAR VOLUME (BEAKER) (test uqhk=946) 98.2 fL 79.0-92.2 MEAN CORPUSCULAR HEMOGLOBIN (BEAKER) (test 32.7 pg 25.7-32.2 wkvj=129) MEAN CORPUSCULAR HEMOGLOBIN CONC (BEAKER) (test 33.3 GM/DL 32.3-36.5 pugo=098) RED CELL DISTRIBUTION WIDTH (BEAKER) (test 16.4 % 11.6-14.4 ubfw=790) PLATELET COUNT (BEAKER) (test aecx=910) 71 K/CU MM 150-450 MEAN PLATELET VOLUME (BEAKER) (test ohey=940) 9.1 fL 9.4-12.4 NUCLEATED RED BLOOD CELLS (BEAKER) (test 0 /100 WBC 0-0 dwhe=527) NEUTROPHILS RELATIVE PERCENT (BEAKER) (test 71 % qvzd=658) LYMPHOCYTES RELATIVE PERCENT (BEAKER) (test 8 % nclq=418) MONOCYTES RELATIVE PERCENT (BEAKER) (test 15 % lobt=269) EOSINOPHILS RELATIVE PERCENT (BEAKER) (test 5 % odrk=850) BASOPHILS RELATIVE PERCENT (BEAKER) (test 0 % ldqv=265) NEUTROPHILS ABSOLUTE COUNT (BEAKER) (test 5.13 K/ L 1.78-5.38 zpai=577) LYMPHOCYTES ABSOLUTE COUNT (BEAKER) (test 0.59 K/ L 1.32-3.57 muah=916) MONOCYTES ABSOLUTE COUNT (BEAKER) (test gkhg=296) 1.06 K/ L 0.30-0.82 EOSINOPHILS ABSOLUTE COUNT (BEAKER) (test 0.33 K/ L 0.04-0.54 jypt=669) BASOPHILS ABSOLUTE COUNT (BEAKER) (test dxlo=681) 0.03 K/ L 0.01-0.08 IMMATURE GRANULOCYTES-RELATIVE PERCENT (BEAKER) 2 % 0-1 (test figl=9660) FUNGUS CULTURE + [id number] 07:22:00 Test Item Value Reference Range Comments CULTURE (BEAKER) (test No fungus isolated in 28 days oinc=5950) FUNGUS SMEAR (BEAKER) (test No fungi seen xfxr=6252) HISTOPLASMA ANTIGEN, [id number] 08:01:00 Test Item Value Reference Range Comments SCAN RESULT (test jmdg=[id number]) TISSUE [id number] 10:58:00 Test Item Value Reference Range Comments LAB AP CPT CODE (BEAKER) (test jsza=3042) 08513 BLOOD [id number] 16:15:00 Test Item Value Reference Range Comments CULTURE (BEAKER) (test uowv=1317) No growth in 5 days BLOOD [id number] 16:15:00 Test Item Value Reference Range Comments CULTURE (BEAKER) (test jsjw=2513) No growth in 5 days [id number] 06:54:00 Test Item Value Reference Range Comments PHOSPHORUS (BEAKER) (test xvqt=194) 3.3 mg/dL 2.3-4.7 [id number] 06:54:00 Test Item Value Reference Range Comments MAGNESIUM (BEAKER) (test accn=710) 1.2 mg/dL 1.6-2.6 BASIC METABOLIC [id number] 06:54:00 Test Item Value Reference Range Comments SODIUM (BEAKER) (test 133 meq/L 136-145 vblh=299) POTASSIUM (BEAKER) (test 3.6 meq/L 3.5-5.1 ogzj=392) CHLORIDE (BEAKER) (test 108 meq/L 98-107 ztuz=813) CO2 (BEAKER) (test 17 meq/L 22-29 kkus=265) BLOOD UREA NITROGEN 13 mg/dL 7-21 (BEAKER) (test pjha=729) CREATININE (BEAKER) (test 1.16 mg/dL 0.57-1.25 vppo=003) GLUCOSE RANDOM (BEAKER) 82 mg/dL 70-105 (test zfxo=342) CALCIUM (BEAKER) (test 8.0 mg/dL 8.4-10.2 eibx=611) EGFR (BEAKER) (test 66 mL/min/1.73 sq m ESTIMATED GFR IS NOT ewcn=3174) ACCURATE CREATININE CLEARANCE IN PREDICTING GLOMERULAR FILTRATION RATE. ESTIMATED GFR IS NOT APPLICABLE FOR DIALYSIS PATIENTS. Specimen moderately ictericHEPATIC FUNCTION [id number] 06:54:00 Test Item Value Reference Range Comments TOTAL PROTEIN (BEAKER) (test anfu=921) 5.7 gm/dL 6.0-8.3 ALBUMIN (BEAKER) (test rnlh=2104) 3.1 g/dL 3.5-5.0 BILIRUBIN TOTAL (BEAKER) (test hnfx=216) 5.2 mg/dL 0.2-1.2 BILIRUBIN DIRECT (BEAKER) (test xnuv=793) 2.6 mg/dL 0.1-0.5 ALKALINE PHOSPHATASE (BEAKER) (test jmmb=771) 55 U/L 40-150 AST (SGOT) (BEAKER) (test vrdn=843) 32 U/L 5-34 ALT (SGPT) (BEAKER) (test mmga=216) 9 U/L 6-55 Specimen moderately ictericCALCIUM, [id number] 06:30:00 Test Item Value Reference Range Comments CALCIUM IONIZED (BEAKER) (test xgst=838) 1.00 mmol/L 1.12-1.27 PH, BLOOD (BEAKER) (test qxee=8735) 7.52 CBC W/PLT COUNT & AUTO [id number] 06:17:00 Test Item Value Reference Range Comments WHITE BLOOD CELL COUNT (BEAKER) (test gjxu=120) 4.7 K/ L 4.0-10.0 RED BLOOD CELL COUNT (BEAKER) (test yghq=617) 2.05 M/ L 4.20-5.80 HEMOGLOBIN (BEAKER) (test cwum=105) 7.1 GM/DL 13.0-16.8 HEMATOCRIT (BEAKER) (test cikg=245) 21.1 % 40.0-50.0 MEAN CORPUSCULAR VOLUME (BEAKER) (test cwmb=214) 103.0 fL 82.0-98.0 MEAN CORPUSCULAR HEMOGLOBIN (BEAKER) (test 34.8 pg 27.0-33.0 esix=975) MEAN CORPUSCULAR HEMOGLOBIN CONC (BEAKER) (test 33.8 GM/DL 32.0-36.0 chuv=203) RED CELL DISTRIBUTION WIDTH (BEAKER) (test 13.9 % 10.3-14.2 scnt=538) PLATELET COUNT (BEAKER) (test ripm=865) 71 K/CU MM 150-430 MEAN PLATELET VOLUME (BEAKER) (test wufw=024) 6.6 fL 6.5-10.5 NUCLEATED RED BLOOD CELLS (BEAKER) (test 0 /100 WBC 0-0 mniz=271) NEUTROPHILS RELATIVE PERCENT (BEAKER) (test 68 % gxpf=699) LYMPHOCYTES RELATIVE PERCENT (BEAKER) (test 16 % unpw=270) MONOCYTES RELATIVE PERCENT (BEAKER) (test 12 % anqk=232) EOSINOPHILS RELATIVE PERCENT (BEAKER) (test 4 % rywu=580) BASOPHILS RELATIVE PERCENT (BEAKER) (test 1 % rmpe=633) NEUTROPHILS ABSOLUTE COUNT (BEAKER) (test 3.21 K/ L 1.80-8.00 amds=522) LYMPHOCYTES ABSOLUTE COUNT (BEAKER) (test 0.75 K/ L 1.48-4.50 ujsw=705) MONOCYTES ABSOLUTE COUNT (BEAKER) (test bfky=208) 0.57 K/ L 0.00-1.30 EOSINOPHILS ABSOLUTE COUNT (BEAKER) (test 0.19 K/ L 0.00-0.50 xdcn=405) BASOPHILS ABSOLUTE COUNT (BEAKER) (test kglj=988) 0.03 K/ L 0.00-0.20 0.00PROTHROMBIN [id number] 05:56:00 Test Item Value Reference Range Comments PROTIME (BEAKER) (test tecu=194) 26.4 seconds 11.7-14.7 INR (BEAKER) (test ijro=700) 2.4 <=5.9 RECOMMENDED COUMADIN/WARFARIN INR THERAPY RANGESSTANDARD DOSE: 2.0 - 3.0 Includes: PROPHYLAXIS forvenous thrombosis, systemic embolization; TREATMENT for venous thrombosis and/or pulmonary embolus.HIGH RISK: Target INR is 2.5-3.5 for patients with mechanical heart valves.BASIC METABOLIC [id number] 04:44: 00 Test Item Value Reference Range Comments SODIUM (BEAKER) (test 134 meq/L 136-145 jklv=091) POTASSIUM (BEAKER) (test 3.6 meq/L 3.5-5.1 qkmi=177) CHLORIDE (BEAKER) (test 108 meq/L 98-107 ximh=406) CO2 (BEAKER) (test 19 meq/L 22-29 skqe=280) BLOOD UREA NITROGEN 12 mg/dL 7-21 (BEAKER) (test xkzs=278) CREATININE (BEAKER) (test 1.32 mg/dL 0.57-1.25 kdzp=156) GLUCOSE RANDOM (BEAKER) 82 mg/dL 70-105 (test mvky=401) CALCIUM (BEAKER) (test 7.9 mg/dL 8.4-10.2 tgpd=207) EGFR (BEAKER) (test 57 mL/min/1.73 sq m ESTIMATED GFR IS NOT pcgr=4676) ACCURATE CREATININE CLEARANCE IN PREDICTING GLOMERULAR FILTRATION RATE. ESTIMATED GFR IS NOT APPLICABLE FOR DIALYSIS PATIENTS. Specimen moderately ictericHEPATIC FUNCTION [id number] 04:42:00 Test Item Value Reference Range Comments TOTAL PROTEIN (BEAKER) (test bakr=944) 5.8 gm/dL 6.0-8.3 ALBUMIN (BEAKER) (test czmz=9301) 3.1 g/dL 3.5-5.0 BILIRUBIN TOTAL (BEAKER) (test hpod=088) 5.1 mg/dL 0.2-1.2 BILIRUBIN DIRECT (BEAKER) (test fnyp=587) 2.7 mg/dL 0.1-0.5 ALKALINE PHOSPHATASE (BEAKER) (test vtdg=696) 51 U/L 40-150 AST (SGOT) (BEAKER) (test ggnx=909) 27 U/L 5-34 ALT (SGPT) (BEAKER) (test mfnm=154) 7 U/L 6-55 Specimen moderately ictericCBC W/PLT COUNT & AUTO [id number] 04: 35:00 Test Item Value Reference Range Comments WHITE BLOOD CELL COUNT (BEAKER) (test xioq=481) 4.6 K/ L 4.0-10.0 RED BLOOD CELL COUNT (BEAKER) (test wkjb=502) 2.06 M/ L 4.20-5.80 HEMOGLOBIN (BEAKER) (test fshx=854) 7.2 GM/DL 13.0-16.8 HEMATOCRIT (BEAKER) (test ibkm=164) 21.5 % 40.0-50.0 MEAN CORPUSCULAR VOLUME (BEAKER) (test udam=087) 104.0 fL 82.0-98.0 MEAN CORPUSCULAR HEMOGLOBIN (BEAKER) (test 35.0 pg 27.0-33.0 yukf=577) MEAN CORPUSCULAR HEMOGLOBIN CONC (BEAKER) (test 33.6 GM/DL 32.0-36.0 ught=152) RED CELL DISTRIBUTION WIDTH (BEAKER) (test 13.4 % 10.3-14.2 ctiv=265) PLATELET COUNT (BEAKER) (test hhgw=650) 76 K/CU MM 150-430 MEAN PLATELET VOLUME (BEAKER) (test dels=463) 6.5 fL 6.5-10.5 NUCLEATED RED BLOOD CELLS (BEAKER) (test 0 /100 WBC 0-0 qxkl=322) NEUTROPHILS RELATIVE PERCENT (BEAKER) (test 64 % kijl=782) LYMPHOCYTES RELATIVE PERCENT (BEAKER) (test 16 % ffvk=064) MONOCYTES RELATIVE PERCENT (BEAKER) (test 16 % dbid=899) EOSINOPHILS RELATIVE PERCENT (BEAKER) (test 4 % trab=209) BASOPHILS RELATIVE PERCENT (BEAKER) (test 1 % bxqw=826) NEUTROPHILS ABSOLUTE COUNT (BEAKER) (test 2.89 K/ L 1.80-8.00 khal=740) LYMPHOCYTES ABSOLUTE COUNT (BEAKER) (test 0.72 K/ L 1.48-4.50 ufel=344) MONOCYTES ABSOLUTE COUNT (BEAKER) (test tdie=209) 0.71 K/ L 0.00-1.30 EOSINOPHILS ABSOLUTE COUNT (BEAKER) (test 0.20 K/ L 0.00-0.50 bpdw=403) BASOPHILS ABSOLUTE COUNT (BEAKER) (test xdan=937) 0.03 K/ L 0.00-0.20 0.00PROTHROMBIN [id number] 04:33:00 Test Item Value Reference Range Comments PROTIME (BEAKER) (test qund=765) 30.2 seconds 11.7-14.7 INR (BEAKER) (test waqe=165) 2.9 <=5.9 RECOMMENDED COUMADIN/WARFARIN INR THERAPY RANGESSTANDARD DOSE: 2.0 - 3.0 Includes: PROPHYLAXIS forvenous thrombosis, systemic embolization; TREATMENT for venous thrombosis and/or pulmonary embolus.HIGH RISK: Target INR is 2.5-3.5 for patients with mechanical heart valves.VANCOMYCIN LEVEL, [id number] 17: 04:00 Test Item Value Reference Range Comments VANCOMYCIN TROUGH (BEAKER) (test egps=625) 12.2 ug/mL 10.0-20.0 URINE [id number] 14:25:00 Test Item Value Reference Range Comments CULTURE (BEAKER) (test lcyp=7655) No growth TSH/FREE T4 IF [id number] 14:22:00 Test Item Value Reference Range Comments THYROID STIMULATING HORMONE (BEAKER) (test 3.53 uIU/mL 0.35-4.94 oqzz=658) URINE [id number] 11:43:00 Test Item Value Reference Range Comments CULTURE (BEAKER) (test evji=4929) No growth CBC W/PLT COUNT & AUTO [id number] 07:55:00 Test Item Value Reference Range Comments WHITE BLOOD CELL COUNT (BEAKER) (test mzkh=949) 4.5 K/ L 4.0-10.0 RED BLOOD CELL COUNT (BEAKER) (test byve=613) 2.06 M/ L 4.20-5.80 HEMOGLOBIN (BEAKER) (test avyo=662) 7.1 GM/DL 13.0-16.8 HEMATOCRIT (BEAKER) (test wttv=399) 21.5 % 40.0-50.0 MEAN CORPUSCULAR VOLUME (BEAKER) (test pyuw=854) 104.0 fL 82.0-98.0 MEAN CORPUSCULAR HEMOGLOBIN (BEAKER) (test 34.5 pg 27.0-33.0 sszz=818) MEAN CORPUSCULAR HEMOGLOBIN CONC (BEAKER) (test 33.1 GM/DL 32.0-36.0 tzcg=345) RED CELL DISTRIBUTION WIDTH (BEAKER) (test 13.4 % 10.3-14.2 vtjc=945) PLATELET COUNT (BEAKER) (test ztlu=338) 79 K/CU MM 150-430 MEAN PLATELET VOLUME (BEAKER) (test ynng=484) 6.8 fL 6.5-10.5 NUCLEATED RED BLOOD CELLS (BEAKER) (test 0 /100 WBC 0-0 qajg=371) NEUTROPHILS RELATIVE PERCENT (BEAKER) (test 64 % mhrz=693) LYMPHOCYTES RELATIVE PERCENT (BEAKER) (test 16 % owsp=729) MONOCYTES RELATIVE PERCENT (BEAKER) (test 15 % nzrj=524) EOSINOPHILS RELATIVE PERCENT (BEAKER) (test 5 % fnhz=988) BASOPHILS RELATIVE PERCENT (BEAKER) (test 0 % bpzr=446) NEUTROPHILS ABSOLUTE COUNT (BEAKER) (test 2.88 K/ L 1.80-8.00 mhay=224) LYMPHOCYTES ABSOLUTE COUNT (BEAKER) (test 0.73 K/ L 1.48-4.50 meba=215) MONOCYTES ABSOLUTE COUNT (BEAKER) (test abee=616) 0.68 K/ L 0.00-1.30 EOSINOPHILS ABSOLUTE COUNT (BEAKER) (test 0.23 K/ L 0.00-0.50 gxaj=679) BASOPHILS ABSOLUTE COUNT (BEAKER) (test niea=444) 0.02 K/ L 0.00-0.20 0.00BASIC METABOLIC [id number] 05:58:00 Test Item Value Reference Range Comments SODIUM (BEAKER) (test 137 meq/L 136-145 ymna=745) POTASSIUM (BEAKER) (test 3.7 meq/L 3.5-5.1 fmja=558) CHLORIDE (BEAKER) (test 110 meq/L 98-107 mpke=488) CO2 (BEAKER) (test 19 meq/L 22-29 rtmm=203) BLOOD UREA NITROGEN 12 mg/dL 7-21 (BEAKER) (test jvjf=596) CREATININE (BEAKER) (test 1.29 mg/dL 0.57-1.25 cryo=625) GLUCOSE RANDOM (BEAKER) 80 mg/dL 70-105 (test jxly=118) CALCIUM (BEAKER) (test 8.1 mg/dL 8.4-10.2 fwmo=463) EGFR (BEAKER) (test 59 mL/min/1.73 sq m ESTIMATED GFR IS NOT yoem=6949) ACCURATE CREATININE CLEARANCE IN PREDICTING GLOMERULAR FILTRATION RATE. ESTIMATED GFR IS NOT APPLICABLE FOR DIALYSIS PATIENTS. Specimen moderately ictericHEPATIC FUNCTION [id number] 05:58:00 Test Item Value Reference Range Comments TOTAL PROTEIN (BEAKER) (test usji=826) 5.9 gm/dL 6.0-8.3 ALBUMIN (BEAKER) (test annp=9045) 3.4 g/dL 3.5-5.0 BILIRUBIN TOTAL (BEAKER) (test cpay=289) 5.6 mg/dL 0.2-1.2 BILIRUBIN DIRECT (BEAKER) (test tjvi=657) 2.6 mg/dL 0.1-0.5 ALKALINE PHOSPHATASE (BEAKER) (test vrur=582) 50 U/L 40-150 AST (SGOT) (BEAKER) (test gmuy=564) 30 U/L 5-34 ALT (SGPT) (BEAKER) (test vomi=595) 9 U/L 6-55 Specimen moderately ictericPROTHROMBIN [id number] 05:31:00 Test Item Value Reference Range Comments PROTIME (BEAKER) (test ysyi=007) 29.0 seconds 11.7-14.7 INR (BEAKER) (test ejvo=702) 2.7 <=5.9 RECOMMENDED COUMADIN/WARFARIN INR THERAPY RANGESSTANDARD DOSE: 2.0 - 3.0 Includes: PROPHYLAXIS forvenous thrombosis, systemic embolization; TREATMENT for venous thrombosis and/or pulmonary embolus.HIGH RISK: Target INR is 2.5-3.5 for patients with mechanical heart valves.ANAEROBIC [id number] 05:15:00 Test Item Value Reference Range Comments CULTURE (BEAKER) (test swlv=5548) No anaerobes isolated BLOOD [id number] 00:00:00 Test Item Value Reference Range Comments CULTURE (BEAKER) (test rstp=3775) No growth in 5 days BLOOD [id number] 00:00:00 Test Item Value Reference Range Comments CULTURE (BEAKER) (test lfof=7765) No growth in 5 days URINALYSIS W/ REFLEX URINE [id number] 08:28:00 Test Item Value Reference Range Comments COLOR (BEAKER) (test felk=693) Yellow CLARITY (BEAKER) (test wsfi=401) Clear SPECIFIC GRAVITY UA (BEAKER) (test bpdu=024) 1.006 1.001-1.035 PH UA (BEAKER) (test ssxl=053) 6.5 5.0-8.0 PROTEIN UA (BEAKER) (test fsvr=463) Negative Negative GLUCOSE UA (BEAKER) (test deyf=224) Negative Negative KETONES UA (BEAKER) (test yacx=451) Negative Negative BILIRUBIN UA (BEAKER) (test bkgh=480) Negative Negative BLOOD UA (BEAKER) (test pnyw=726) Negative Negative NITRITE UA (BEAKER) (test spix=531) Negative Negative LEUKOCYTE ESTERASE UA (BEAKER) (test dedc=503) Small Negative UROBILINOGEN UA (BEAKER) (test urqc=579) 0.2 mg/dL 0.2-1.0 RBC UA (BEAKER) (test nbmh=572) 1 /HPF WBC UA (BEAKER) (test nops=870) 6 /HPF BACTERIA (BEAKER) (test kqlp=979) Rare SOURCE(BEAKER) (test ogti=0951) CBC W/PLT COUNT & AUTO [id number] 07:21:00 Test Item Value Reference Range Comments WHITE BLOOD CELL COUNT (BEAKER) (test lrkh=642) 5.9 K/ L 4.0-10.0 RED BLOOD CELL COUNT (BEAKER) (test vmlx=363) 2.12 M/ L 4.20-5.80 HEMOGLOBIN (BEAKER) (test wwvj=484) 7.3 GM/DL 13.0-16.8 HEMATOCRIT (BEAKER) (test kgzt=926) 22.2 % 40.0-50.0 MEAN CORPUSCULAR VOLUME (BEAKER) (test utzu=177) 105.0 fL 82.0-98.0 MEAN CORPUSCULAR HEMOGLOBIN (BEAKER) (test 34.2 pg 27.0-33.0 eqyw=982) MEAN CORPUSCULAR HEMOGLOBIN CONC (BEAKER) (test 32.7 GM/DL 32.0-36.0 fozp=058) RED CELL DISTRIBUTION WIDTH (BEAKER) (test 13.1 % 10.3-14.2 twnc=377) PLATELET COUNT (BEAKER) (test tukh=848) 80 K/CU MM 150-430 MEAN PLATELET VOLUME (BEAKER) (test juxu=573) 6.5 fL 6.5-10.5 NUCLEATED RED BLOOD CELLS (BEAKER) (test 0 /100 WBC 0-0 yvim=886) NEUTROPHILS RELATIVE PERCENT (BEAKER) (test 67 % kaqp=076) LYMPHOCYTES RELATIVE PERCENT (BEAKER) (test 14 % mlrf=194) MONOCYTES RELATIVE PERCENT (BEAKER) (test 14 % chee=002) EOSINOPHILS RELATIVE PERCENT (BEAKER) (test 4 % yhls=233) BASOPHILS RELATIVE PERCENT (BEAKER) (test 0 % dmrr=707) NEUTROPHILS ABSOLUTE COUNT (BEAKER) (test 3.97 K/ L 1.80-8.00 elxv=151) LYMPHOCYTES ABSOLUTE COUNT (BEAKER) (test 0.85 K/ L 1.48-4.50 vede=615) MONOCYTES ABSOLUTE COUNT (BEAKER) (test itdh=132) 0.81 K/ L 0.00-1.30 EOSINOPHILS ABSOLUTE COUNT (BEAKER) (test 0.25 K/ L 0.00-0.50 zlly=644) BASOPHILS ABSOLUTE COUNT (BEAKER) (test kuyz=762) 0.03 K/ L 0.00-0.20 [id number] 06:35:00 Test Item Value Reference Range Comments PHOSPHORUS (BEAKER) (test hzwe=433) 3.5 mg/dL 2.3-4.7 [id number] 06:35:00 Test Item Value Reference Range Comments MAGNESIUM (BEAKER) (test oxml=286) 1.7 mg/dL 1.6-2.6 BASIC METABOLIC [id number] 06:35:00 Test Item Value Reference Range Comments SODIUM (BEAKER) (test 137 meq/L 136-145 jiod=431) POTASSIUM (BEAKER) (test 4.0 meq/L 3.5-5.1 ettb=981) CHLORIDE (BEAKER) (test 109 meq/L 98-107 toua=569) CO2 (BEAKER) (test 20 meq/L 22-29 giom=813) BLOOD UREA NITROGEN 13 mg/dL 7-21 (BEAKER) (test tqzd=149) CREATININE (BEAKER) (test 1.56 mg/dL 0.57-1.25 wkft=676) GLUCOSE RANDOM (BEAKER) 85 mg/dL 70-105 (test vzvh=961) CALCIUM (BEAKER) (test 8.4 mg/dL 8.4-10.2 yyrk=101) EGFR (BEAKER) (test 47 mL/min/1.73 sq m ESTIMATED GFR IS NOT fueo=4981) ACCURATE CREATININE CLEARANCE IN PREDICTING GLOMERULAR FILTRATION RATE. ESTIMATED GFR IS NOT APPLICABLE FOR DIALYSIS PATIENTS. Specimen moderately ictericHEPATIC FUNCTION [id number] 06:35:00 Test Item Value Reference Range Comments TOTAL PROTEIN (BEAKER) (test ilyd=397) 6.5 gm/dL 6.0-8.3 ALBUMIN (BEAKER) (test ktgi=4191) 3.8 g/dL 3.5-5.0 BILIRUBIN TOTAL (BEAKER) (test vqdt=086) 6.1 mg/dL 0.2-1.2 BILIRUBIN DIRECT (BEAKER) (test fumu=829) 2.9 mg/dL 0.1-0.5 ALKALINE PHOSPHATASE (BEAKER) (test kvmx=127) 54 U/L 40-150 AST (SGOT) (BEAKER) (test raek=011) 28 U/L 5-34 ALT (SGPT) (BEAKER) (test amas=481) 7 U/L 6-55 Specimen moderately ictericPROTHROMBIN [id number] 06:06:00 Test Item Value Reference Range Comments PROTIME (BEAKER) (test cegc=939) 26.1 seconds 11.7-14.7 INR (BEAKER) (test adfe=875) 2.4 <=5.9 RECOMMENDED COUMADIN/WARFARIN INR THERAPY RANGESSTANDARD DOSE: 2.0 - 3.0 Includes: PROPHYLAXIS forvenous thrombosis, systemic embolization; TREATMENT for venous thrombosis and/or pulmonary embolus.HIGH RISK: Target INR is 2.5-3.5 for patients with mechanical heart valves.CALCIUM, [id number] 06:06:00 Test Item Value Reference Range Comments CALCIUM IONIZED (BEAKER) (test qvwy=788) 1.06 mmol/L 1.12-1.27 PH, BLOOD (BEAKER) (test khxn=5913) 7.46 SURGICALLY OBTAINED CULTURE + GRAM [id number] 23:51:00 Test Item Value Reference Range Comments CULTURE (BEAKER) (test tajx=0103) No growth GRAM STAIN RESULT (BEAKER) (test 1+ WBCs lnyg=2476) GRAM STAIN RESULT (BEAKER) (test No organisms seen hfli=68175) BODY FLUID CULTURE + GRAM [id number] 23:42:00 Test Item Value Reference Range Comments CULTURE (BEAKER) (test mkni=1743) No growth GRAM STAIN RESULT (BEAKER) (test 1+ WBCs uviz=7180) GRAM STAIN RESULT (BEAKER) (test No organisms seen jvab=45341) BODY FLUID CELL COUNT WITH [id number] 19:59:00 Test Item Value Reference Range Comments APPEARANCE FLUID (BEAKER) (test wqih=642) Hazy Clear COLOR FLUID (BEAKER) (test iwvx=554) Yellow Colorless, Straw RBC FLUID (BEAKER) (test mkzm=782) 2435 /cu mm <=1 ADJUSTED WBC FLUID (BEAKER) (test bjjz=9884) 441 /cu mm <=5 LINING CELLS (BEAKER) (test mfbp=1535) 9 /cu mm <=1 NEUTROPHILS FLUID (BEAKER) (test bfda=4249) 16 % LYMPHS FLUID (BEAKER) (test hfcc=624) 10 % MONO/MACROPHAGE FLUID (BEAKER) (test yokw=965) 74 % EOSINOPHILS FLUID (BEAKER) (test pptw=392) 0 % BASO FLUID (BEAKER) (test ncnl=325) 0 % CONTAINER BODY FLUID (BEAKER) (test ndqb=3453) EDTA Tube [id number] 11:01:00 Test Item Value Reference Range Comments PROCALCITONIN (BEAKER) (test xcil=4242) 0.25 ng/mL <0.05 SEPSIS RISK (ng/mL)Low: 0.05-0.50Intermediate: 0.51-2.00High: & gt;=2.01CBC W/PLT COUNT & AUTO [id number] 08:40:00 Test Item Value Reference Range Comments WHITE BLOOD CELL COUNT (BEAKER) (test icxm=161) 6.3 K/ L 4.0-10.0 RED BLOOD CELL COUNT (BEAKER) (test zdnl=178) 2.07 M/ L 4.20-5.80 HEMOGLOBIN (BEAKER) (test afcs=814) 7.1 GM/DL 13.0-16.8 HEMATOCRIT (BEAKER) (test dgoq=248) 21.9 % 40.0-50.0 MEAN CORPUSCULAR VOLUME (BEAKER) (test kkxp=136) 106.0 fL 82.0-98.0 MEAN CORPUSCULAR HEMOGLOBIN (BEAKER) (test 34.1 pg 27.0-33.0 sgly=661) MEAN CORPUSCULAR HEMOGLOBIN CONC (BEAKER) (test 32.2 GM/DL 32.0-36.0 qmpq=588) RED CELL DISTRIBUTION WIDTH (BEAKER) (test 13.1 % 10.3-14.2 nkfx=437) PLATELET COUNT (BEAKER) (test qqda=495) 78 K/CU MM 150-430 MEAN PLATELET VOLUME (BEAKER) (test zkxu=766) 6.6 fL 6.5-10.5 NUCLEATED RED BLOOD CELLS (BEAKER) (test 0 /100 WBC 0-0 cwnf=348) NEUTROPHILS RELATIVE PERCENT (BEAKER) (test 73 % yaut=452) LYMPHOCYTES RELATIVE PERCENT (BEAKER) (test 10 % cowd=326) MONOCYTES RELATIVE PERCENT (BEAKER) (test 13 % iebv=247) EOSINOPHILS RELATIVE PERCENT (BEAKER) (test 4 % dgzi=105) BASOPHILS RELATIVE PERCENT (BEAKER) (test 0 % wykg=946) NEUTROPHILS ABSOLUTE COUNT (BEAKER) (test 4.60 K/ L 1.80-8.00 kicc=009) LYMPHOCYTES ABSOLUTE COUNT (BEAKER) (test 0.64 K/ L 1.48-4.50 uhdr=849) MONOCYTES ABSOLUTE COUNT (BEAKER) (test dbqw=077) 0.81 K/ L 0.00-1.30 EOSINOPHILS ABSOLUTE COUNT (BEAKER) (test 0.23 K/ L 0.00-0.50 stwz=724) BASOPHILS ABSOLUTE COUNT (BEAKER) (test goyv=198) 0.01 K/ L 0.00-0.20 [id number] 06:50:00 Test Item Value Reference Range Comments PHOSPHORUS (BEAKER) (test hqtb=479) 3.0 mg/dL 2.3-4.7 [id number] 06:50:00 Test Item Value Reference Range Comments MAGNESIUM (BEAKER) (test rifx=206) 1.9 mg/dL 1.6-2.6 BASIC METABOLIC [id number] 06:50:00 Test Item Value Reference Range Comments SODIUM (BEAKER) (test 135 meq/L 136-145 omdv=306) POTASSIUM (BEAKER) (test 4.2 meq/L 3.5-5.1 viwj=105) CHLORIDE (BEAKER) (test 106 meq/L 98-107 eflr=426) CO2 (BEAKER) (test 21 meq/L 22-29 cbbp=474) BLOOD UREA NITROGEN 19 mg/dL 7-21 (BEAKER) (test mjfe=248) CREATININE (BEAKER) (test 1.62 mg/dL 0.57-1.25 fmcm=860) GLUCOSE RANDOM (BEAKER) 98 mg/dL 70-105 (test jgip=753) CALCIUM (BEAKER) (test 8.6 mg/dL 8.4-10.2 yrhq=569) EGFR (BEAKER) (test 45 mL/min/1.73 sq m ESTIMATED GFR IS NOT boci=5752) ACCURATE CREATININE CLEARANCE IN PREDICTING GLOMERULAR FILTRATION RATE. ESTIMATED GFR IS NOT APPLICABLE FOR DIALYSIS PATIENTS. Specimen moderately ictericHEPATIC FUNCTION [id number] 06:50:00 Test Item Value Reference Range Comments TOTAL PROTEIN (BEAKER) (test hbja=036) 6.3 gm/dL 6.0-8.3 ALBUMIN (BEAKER) (test sdou=9804) 3.7 g/dL 3.5-5.0 BILIRUBIN TOTAL (BEAKER) (test rmlg=946) 6.2 mg/dL 0.2-1.2 BILIRUBIN DIRECT (BEAKER) (test pckd=170) 2.8 mg/dL 0.1-0.5 ALKALINE PHOSPHATASE (BEAKER) (test cfwm=540) 54 U/L 40-150 AST (SGOT) (BEAKER) (test txun=274) 29 U/L 5-34 ALT (SGPT) (BEAKER) (test zodz=473) 8 U/L 6-55 Specimen moderately ictericCALCIUM, [id number] 06:48:00 Test Item Value Reference Range Comments CALCIUM IONIZED (BEAKER) (test keps=986) 1.12 mmol/L 1.12-1.27 PH, BLOOD (BEAKER) (test lfzl=4215) 7.33 PROTHROMBIN [id number] 06:24:00 Test Item Value Reference Range Comments PROTIME (BEAKER) (test thns=832) 25.4 seconds 11.7-14.7 INR (BEAKER) (test dgww=172) 2.3 <=5.9 RECOMMENDED COUMADIN/WARFARIN INR THERAPY RANGESSTANDARD DOSE: 2.0 - 3.0 Includes: PROPHYLAXIS forvenous thrombosis, systemic embolization; TREATMENT for venous thrombosis and/or pulmonary embolus.HIGH RISK: Target INR is 2.5-3.5 for patients with mechanical heart valves.[id number] 11:17:00 Test Item Value Reference Range Comments FIBRINOGEN LEVEL (BEAKER) (test bvnu=742) 115 mg/dl 225-434 CALCIUM, [id number] 06:04:00 Test Item Value Reference Range Comments CALCIUM IONIZED (BEAKER) (test zuth=159) 1.08 mmol/L 1.12-1.27 PH, BLOOD (BEAKER) (test imba=7670) 7.41 CBC W/PLT COUNT & AUTO [id number] 05:28:00 Test Item Value Reference Range Comments WHITE BLOOD CELL COUNT (BEAKER) (test moex=159) 5.6 K/ L 4.0-10.0 RED BLOOD CELL COUNT (BEAKER) (test khzc=568) 2.00 M/ L 4.20-5.80 HEMOGLOBIN (BEAKER) (test dsmd=249) 7.2 GM/DL 13.0-16.8 HEMATOCRIT (BEAKER) (test lmrn=559) 21.2 % 40.0-50.0 MEAN CORPUSCULAR VOLUME (BEAKER) (test ikre=498) 106.0 fL 82.0-98.0 MEAN CORPUSCULAR HEMOGLOBIN (BEAKER) (test 36.0 pg 27.0-33.0 bthd=358) MEAN CORPUSCULAR HEMOGLOBIN CONC (BEAKER) (test 34.0 GM/DL 32.0-36.0 lpsi=004) RED CELL DISTRIBUTION WIDTH (BEAKER) (test 13.9 % 10.3-14.2 yiwe=840) PLATELET COUNT (BEAKER) (test zbrf=055) 74 K/CU MM 150-430 MEAN PLATELET VOLUME (BEAKER) (test bole=257) 6.6 fL 6.5-10.5 NUCLEATED RED BLOOD CELLS (BEAKER) (test 0 /100 WBC 0-0 sfdh=527) NEUTROPHILS RELATIVE PERCENT (BEAKER) (test 66 % iqll=051) LYMPHOCYTES RELATIVE PERCENT (BEAKER) (test 14 % phmb=748) MONOCYTES RELATIVE PERCENT (BEAKER) (test 13 % xgmg=835) EOSINOPHILS RELATIVE PERCENT (BEAKER) (test 7 % zpqr=136) BASOPHILS RELATIVE PERCENT (BEAKER) (test 0 % azva=706) NEUTROPHILS ABSOLUTE COUNT (BEAKER) (test 3.67 K/ L 1.80-8.00 mhgr=186) LYMPHOCYTES ABSOLUTE COUNT (BEAKER) (test 0.80 K/ L 1.48-4.50 cbbq=576) MONOCYTES ABSOLUTE COUNT (BEAKER) (test nlfe=762) 0.69 K/ L 0.00-1.30 EOSINOPHILS ABSOLUTE COUNT (BEAKER) (test 0.38 K/ L 0.00-0.50 cqou=293) BASOPHILS ABSOLUTE COUNT (BEAKER) (test vldv=737) 0.02 K/ L 0.00-0.20 0.00PROTHROMBIN [id number] 05:11:00 Test Item Value Reference Range Comments PROTIME (BEAKER) (test yxlp=656) 25.9 seconds 11.7-14.7 INR (BEAKER) (test xmoz=256) 2.4 <=5.9 RECOMMENDED COUMADIN/WARFARIN INR THERAPY RANGESSTANDARD DOSE: 2.0 - 3.0 Includes: PROPHYLAXIS forvenous thrombosis, systemic embolization; TREATMENT for venous thrombosis and/or pulmonary embolus.HIGH RISK: Target INR is 2.5-3.5 for patients with mechanical heart valves.[id number] 05:03:00 Test Item Value Reference Range Comments PHOSPHORUS (BEAKER) (test gadk=238) 3.5 mg/dL 2.3-4.7 [id number] 05:03:00 Test Item Value Reference Range Comments MAGNESIUM (BEAKER) (test uynm=568) 1.7 mg/dL 1.6-2.6 BASIC METABOLIC [id number] 05:03:00 Test Item Value Reference Range Comments SODIUM (BEAKER) (test 135 meq/L 136-145 gqhy=733) POTASSIUM (BEAKER) (test 4.0 meq/L 3.5-5.1 kmvo=407) CHLORIDE (BEAKER) (test 107 meq/L 98-107 wzbl=346) CO2 (BEAKER) (test 20 meq/L 22-29 czsm=561) BLOOD UREA NITROGEN 22 mg/dL 7-21 (BEAKER) (test yyht=246) CREATININE (BEAKER) (test 1.77 mg/dL 0.57-1.25 zkgy=071) GLUCOSE RANDOM (BEAKER) 83 mg/dL 70-105 (test oaaz=526) CALCIUM (BEAKER) (test 8.3 mg/dL 8.4-10.2 ftna=456) EGFR (BEAKER) (test 41 mL/min/1.73 sq m ESTIMATED GFR IS NOT pxgo=7070) ACCURATE CREATININE CLEARANCE IN PREDICTING GLOMERULAR FILTRATION RATE. ESTIMATED GFR IS NOT APPLICABLE FOR DIALYSIS PATIENTS. Specimen moderately ictericHEPATIC FUNCTION [id number] 05:03:00 Test Item Value Reference Range Comments TOTAL PROTEIN (BEAKER) (test ytlk=406) 6.2 gm/dL 6.0-8.3 ALBUMIN (BEAKER) (test gypt=2561) 3.7 g/dL 3.5-5.0 BILIRUBIN TOTAL (BEAKER) (test ljcn=988) 6.0 mg/dL 0.2-1.2 BILIRUBIN DIRECT (BEAKER) (test bnod=564) 2.6 mg/dL 0.1-0.5 ALKALINE PHOSPHATASE (BEAKER) (test ogol=064) 48 U/L 40-150 AST (SGOT) (BEAKER) (test mvgr=683) 26 U/L 5-34 ALT (SGPT) (BEAKER) (test wbeb=251) 8 U/L 6-55 Specimen moderately ictericURINE [id number] 14:42:00 Test Item Value Reference Range Comments CULTURE (BEAKER) (test lblp=6244) No growth ANTI-NUCLEAR ANTIBODY (CHERYL)[id number] 13:32:00 Test Item Value Reference Range Comments ANTI-NUCLEAR ANTIBODY (CHERYL) (BEAKER) (test Negative Negative vhxx=647) PLATELET [id number] 06:30:00 Test Item Value Reference Range Comments PLATELET COUNT (BEAKER) (test zxsp=146) 104 K/CU MM 150-430 [id number] 06:22:00 Test Item Value Reference Range Comments FIBRINOGEN LEVEL (BEAKER) (test ukzr=550) 106 mg/dl 225-434 [id number] 06:16:00 Test Item Value Reference Range Comments PARTIAL THROMBOPLASTIN TIME (BEAKER) (test 48.1 seconds 22.5-36.0 zbhr=754) PROTHROMBIN [id number] 06:15:00 Test Item Value Reference Range Comments PROTIME (BEAKER) (test gpto=448) 23.5 seconds 11.7-14.7 INR (BEAKER) (test kowg=856) 2.1 <=5.9 RECOMMENDED COUMADIN/WARFARIN INR THERAPY RANGESSTANDARD DOSE: 2.0 - 3.0 Includes: PROPHYLAXIS forvenous thrombosis, systemic embolization; TREATMENT for venous thrombosis and/or pulmonary embolus.HIGH RISK: Target INR is 2.5-3.5 for patients with mechanical heart valves.[id number] 06:12:00 Test Item Value Reference Range Comments MAGNESIUM (BEAKER) (test 2.0 mg/dL 1.6-2.6 Specimen slightly hemolyzed lkbc=857) [id number] 06:12:00 Test Item Value Reference Range Comments PHOSPHORUS (BEAKER) (test 5.0 mg/dL 2.3-4.7 Specimen slightly hemolyzed suqj=906) BASIC METABOLIC [id number] 06:12:00 Test Item Value Reference Range Comments SODIUM (BEAKER) (test 135 meq/L 136-145 pxsc=772) POTASSIUM (BEAKER) (test 4.7 meq/L 3.5-5.1 Specimen slightly sfpw=403) hemolyzed CHLORIDE (BEAKER) (test 107 meq/L 98-107 xzkg=405) CO2 (BEAKER) (test 20 meq/L 22-29 zimp=696) BLOOD UREA NITROGEN 18 mg/dL 7-21 (BEAKER) (test unmn=704) CREATININE (BEAKER) (test 1.74 mg/dL 0.57-1.25 Specimen slightly lrlz=944) hemolyzed GLUCOSE RANDOM (BEAKER) 76 mg/dL 70-105 (test ajcy=744) CALCIUM (BEAKER) (test 8.1 mg/dL 8.4-10.2 fekr=255) EGFR (BEAKER) (test 42 mL/min/1.73 sq m ESTIMATED GFR IS NOT tmya=3288) ACCURATE CREATININE CLEARANCE IN PREDICTING GLOMERULAR FILTRATION RATE. ESTIMATED GFR IS NOT APPLICABLE FOR DIALYSIS PATIENTS. Specimen moderately ictericHEPATIC FUNCTION [id number] 06:12:00 Test Item Value Reference Range Comments TOTAL PROTEIN (BEAKER) (test 6.6 gm/dL 6.0-8.3 Specimen slightly hemolyzed dphi=962) ALBUMIN (BEAKER) (test 3.7 g/dL 3.5-5.0 Specimen slightly hemolyzed izfk=1027) BILIRUBIN TOTAL (BEAKER) (test 5.7 mg/dL 0.2-1.2 Specimen slightly hemolyzed irle=183) BILIRUBIN DIRECT (BEAKER) (test 2.7 mg/dL 0.1-0.5 Specimen slightly hemolyzed esdv=791) ALKALINE PHOSPHATASE (BEAKER) 56 U/L 40-150 (test joon=208) AST (SGOT) (BEAKER) (test 29 U/L 5-34 Specimen slightly hemolyzed uxmw=903) ALT (SGPT) (BEAKER) (test 7 U/L 6-55 Specimen slightly hemolyzed gynf=398) Specimen moderately ictericLACTIC ACID, VENOUS, WHOLE [id number] 06:04:00 Test Item Value Reference Range Comments LACTATE BLOOD VENOUS (2) (BEAKER) (test 1.0 mmol/L 0.5-2.2 drrl=1471) Effective 02/28/2016: Units/Reference Range ChangeNew: 0.5-2.2 mmol/L Previous: 5 -20 mg/dLSpecimen moderately ictericCALCIUM, [id number] 05:56:00 Test Item Value Reference Range Comments CALCIUM IONIZED (BEAKER) (test zmrn=916) 1.00 mmol/L 1.12-1.27 PH, BLOOD (BEAKER) (test xglq=6952) 7.34 [id number] 21:34:00 Test Item Value Reference Range Comments FIBRINOGEN LEVEL (BEAKER) (test zifj=184) 105 mg/dl 225-434 PLATELET [id number] 20:52:00 Test Item Value Reference Range Comments PLATELET COUNT (BEAKER) (test oyls=123) 77 K/CU MM 150-430 PT/[id number] 20:51:00 Test Item Value Reference Range Comments PROTIME (BEAKER) (test hhbj=461) 21.1 seconds 11.7-14.7 INR (BEAKER) (test wjpq=715) 1.8 <=5.9 PARTIAL THROMBOPLASTIN TIME (BEAKER) (test 47.3 seconds 22.5-36.0 ghza=816) RECOMMENDED COUMADIN/WARFARIN INR THERAPY RANGESSTANDARD DOSE: 2.0 - 3.0 Includes: PROPHYLAXIS forvenous thrombosis, systemic embolization; TREATMENT for venous thrombosis and/or pulmonary embolus.HIGH RISK: Target INR is 2.5-3.5 for patients with mechanical heart valves.[id number] 20:51:00 Test Item Value Reference Range Comments PARTIAL THROMBOPLASTIN TIME (BEAKER) (test 47.3 seconds 22.5-36.0 rany=259) PROTHROMBIN [id number] 20:50:00 Test Item Value Reference Range Comments PROTIME (BEAKER) (test ohdl=222) 21.1 seconds 11.7-14.7 INR (BEAKER) (test fexi=739) 1.8 <=5.9 RECOMMENDED COUMADIN/WARFARIN INR THERAPY RANGESSTANDARD DOSE: 2.0 - 3.0 Includes: PROPHYLAXIS forvenous thrombosis, systemic embolization; TREATMENT for venous thrombosis and/or pulmonary embolus.HIGH RISK: Target INR is 2.5-3.5 for patients with mechanical heart valves.[id number] 19:30:00 Test Item Value Reference Range Comments PARTIAL THROMBOPLASTIN TIME (BEAKER) (test 45.1 seconds 22.5-36.0 tpze=373) PROTHROMBIN TIME/[id number] 19:29:00 Test Item Value Reference Range Comments PROTIME (BEAKER) (test vxhl=205) 28.2 seconds 11.7-14.7 INR (BEAKER) (test migx=242) 2.6 <=5.9 RECOMMENDED COUMADIN/WARFARIN INR THERAPY RANGESSTANDARD DOSE: 2.0 - 3.0 Includes: PROPHYLAXIS forvenous thrombosis, systemic embolization; TREATMENT for venous thrombosis and/or pulmonary embolus.HIGH RISK: Target INR is 2.5-3.5 for patients with mechanical heart valves.BODY FLUID CELL COUNT WITH [id number] 18:53:00 Test Item Value Reference Range Comments APPEARANCE FLUID (BEAKER) (test ezvj=119) Hazy Clear COLOR FLUID (BEAKER) (test shnz=794) Yellow Colorless, Straw RBC FLUID (BEAKER) (test chvy=996) 900 /cu mm <=1 ADJUSTED WBC FLUID (BEAKER) (test zhgi=0757) 306 /cu mm <=5 LINING CELLS (BEAKER) (test ihon=1054) 64 /cu mm <=1 NEUTROPHILS FLUID (BEAKER) (test kgug=0129) 4 % LYMPHS FLUID (BEAKER) (test jqwo=819) 18 % MONO/MACROPHAGE FLUID (BEAKER) (test holh=451) 78 % EOSINOPHILS FLUID (BEAKER) (test jesb=207) 0 % BASO FLUID (BEAKER) (test gwpp=416) 0 % CONTAINER BODY FLUID (BEAKER) (test yoog=3494) EDTA Tube [id number] 16:56:00 Test Item Value Reference Range Comments AMYLASE (BEAKER) (test xjwb=433) 37 U/L 25-125 Specimen moderately ictericCOMPREHENSIVE METABOLIC [id number] 16:56:00 Test Item Value Reference Range Comments TOTAL PROTEIN (BEAKER) 6.1 gm/dL 6.0-8.3 (test gvtr=710) ALBUMIN (BEAKER) (test 3.2 g/dL 3.5-5.0 bumo=1613) ALKALINE PHOSPHATASE 67 U/L 40-150 (BEAKER) (test chsb=903) BILIRUBIN TOTAL (BEAKER) 5.7 mg/dL 0.2-1.2 (test bept=894) SODIUM (BEAKER) (test 134 meq/L 136-145 bvfn=646) POTASSIUM (BEAKER) (test 3.8 meq/L 3.5-5.1 move=848) CHLORIDE (BEAKER) (test 106 meq/L 98-107 qpwk=224) CO2 (BEAKER) (test 19 meq/L 22-29 choq=223) BLOOD UREA NITROGEN 18 mg/dL 7-21 (BEAKER) (test nzen=790) CREATININE (BEAKER) (test 1.52 mg/dL 0.57-1.25 xufu=185) GLUCOSE RANDOM (BEAKER) 112 mg/dL 70-105 (test thng=553) CALCIUM (BEAKER) (test 8.3 mg/dL 8.4-10.2 ssrr=959) AST (SGOT) (BEAKER) (test 28 U/L 5-34 lczq=626) ALT (SGPT) (BEAKER) (test 10 U/L 6-55 iwuc=811) EGFR (BEAKER) (test 49 mL/min/1.73 sq m ESTIMATED GFR IS NOT ffaf=6977) ACCURATE CREATININE CLEARANCE IN PREDICTING GLOMERULAR FILTRATION RATE. ESTIMATED GFR IS NOT APPLICABLE FOR DIALYSIS PATIENTS. Specimen moderately [id number] 16:56:00 Test Item Value Reference Range Comments LIPASE (BEAKER) (test erol=492) 52 U/L 8-78 Specimen moderately ictericCBC W/PLT COUNT & AUTO [id number] 16: 27:00 Test Item Value Reference Range Comments WHITE BLOOD CELL COUNT (BEAKER) (test afoc=493) 3.7 K/ L 4.0-10.0 RED BLOOD CELL COUNT (BEAKER) (test oxah=762) 2.16 M/ L 4.20-5.80 HEMOGLOBIN (BEAKER) (test txhk=885) 7.8 GM/DL 13.0-16.8 HEMATOCRIT (BEAKER) (test xojk=068) 23.1 % 40.0-50.0 MEAN CORPUSCULAR VOLUME (BEAKER) (test fkcg=341) 107.0 fL 82.0-98.0 MEAN CORPUSCULAR HEMOGLOBIN (BEAKER) (test 36.0 pg 27.0-33.0 nmdl=396) MEAN CORPUSCULAR HEMOGLOBIN CONC (BEAKER) (test 33.6 GM/DL 32.0-36.0 bikx=310) RED CELL DISTRIBUTION WIDTH (BEAKER) (test 13.9 % 10.3-14.2 xbal=691) PLATELET COUNT (BEAKER) (test onlm=662) 78 K/CU MM 150-430 MEAN PLATELET VOLUME (BEAKER) (test skps=760) 6.2 fL 6.5-10.5 NUCLEATED RED BLOOD CELLS (BEAKER) (test 0 /100 WBC 0-0 djtl=050) NEUTROPHILS RELATIVE PERCENT (BEAKER) (test 50 % yrgw=761) LYMPHOCYTES RELATIVE PERCENT (BEAKER) (test 25 % legu=780) MONOCYTES RELATIVE PERCENT (BEAKER) (test 19 % rtgm=281) EOSINOPHILS RELATIVE PERCENT (BEAKER) (test 6 % ihrz=596) BASOPHILS RELATIVE PERCENT (BEAKER) (test 1 % rgqt=338) NEUTROPHILS ABSOLUTE COUNT (BEAKER) (test 1.82 K/ L 1.80-8.00 wfzy=041) LYMPHOCYTES ABSOLUTE COUNT (BEAKER) (test 0.91 K/ L 1.48-4.50 rwsv=399) MONOCYTES ABSOLUTE COUNT (BEAKER) (test xmtr=842) 0.69 K/ L 0.00-1.30 EOSINOPHILS ABSOLUTE COUNT (BEAKER) (test 0.21 K/ L 0.00-0.50 qkfz=677) BASOPHILS ABSOLUTE COUNT (BEAKER) (test klzd=095) 0.02 K/ L 0.00-0.20 0.00HEPATIC FUNCTION [id number] 08:34:00 Test Item Value Reference Range Comments TOTAL PROTEIN (BEAKER) (test clbl=177) 5.9 gm/dL 6.0-8.3 ALBUMIN (BEAKER) (test zopl=9460) 3.2 g/dL 3.5-5.0 BILIRUBIN TOTAL (BEAKER) (test jjph=572) 5.4 mg/dL 0.2-1.2 BILIRUBIN DIRECT (BEAKER) (test yvve=318) 2.5 mg/dL 0.1-0.5 ALKALINE PHOSPHATASE (BEAKER) (test nykl=338) 60 U/L 40-150 AST (SGOT) (BEAKER) (test lrcr=820) 28 U/L 5-34 ALT (SGPT) (BEAKER) (test uyod=114) 10 U/L 6-55 Specimen moderately [id number] 08:16:00 Test Item Value Reference Range Comments PHOSPHORUS (BEAKER) (test akvv=294) 3.0 mg/dL 2.3-4.7 [id number] 08:16:00 Test Item Value Reference Range Comments MAGNESIUM (BEAKER) (test pwqe=525) 1.6 mg/dL 1.6-2.6 BASIC METABOLIC [id number] 08:16:00 Test Item Value Reference Range Comments SODIUM (BEAKER) (test 133 meq/L 136-145 doct=175) POTASSIUM (BEAKER) (test 3.6 meq/L 3.5-5.1 emdg=888) CHLORIDE (BEAKER) (test 105 meq/L 98-107 qvpb=549) CO2 (BEAKER) (test 20 meq/L 22-29 kctg=846) BLOOD UREA NITROGEN 18 mg/dL 7-21 (BEAKER) (test gcby=233) CREATININE (BEAKER) (test 1.54 mg/dL 0.57-1.25 vaej=984) GLUCOSE RANDOM (BEAKER) 70 mg/dL 70-105 (test xwgq=041) CALCIUM (BEAKER) (test 8.2 mg/dL 8.4-10.2 liwz=172) EGFR (BEAKER) (test 48 mL/min/1.73 sq m ESTIMATED GFR IS NOT pbpb=5641) ACCURATE CREATININE CLEARANCE IN PREDICTING GLOMERULAR FILTRATION RATE. ESTIMATED GFR IS NOT APPLICABLE FOR DIALYSIS PATIENTS. Specimen moderately ictericCBC W/PLT COUNT & AUTO [id number] 08: 06:00 Test Item Value Reference Range Comments WHITE BLOOD CELL COUNT (BEAKER) (test denf=484) 3.4 K/ L 4.0-10.0 RED BLOOD CELL COUNT (BEAKER) (test vaym=519) 2.03 M/ L 4.20-5.80 HEMOGLOBIN (BEAKER) (test nsch=967) 7.3 GM/DL 13.0-16.8 HEMATOCRIT (BEAKER) (test nnbh=354) 21.6 % 40.0-50.0 MEAN CORPUSCULAR VOLUME (BEAKER) (test sssf=886) 106.0 fL 82.0-98.0 MEAN CORPUSCULAR HEMOGLOBIN (BEAKER) (test 35.8 pg 27.0-33.0 amss=906) MEAN CORPUSCULAR HEMOGLOBIN CONC (BEAKER) (test 33.7 GM/DL 32.0-36.0 nlfi=043) RED CELL DISTRIBUTION WIDTH (BEAKER) (test 13.5 % 10.3-14.2 fkzi=148) PLATELET COUNT (BEAKER) (test slmk=782) 82 K/CU MM 150-430 MEAN PLATELET VOLUME (BEAKER) (test bgsh=596) 6.7 fL 6.5-10.5 NUCLEATED RED BLOOD CELLS (BEAKER) (test 0 /100 WBC 0-0 shtt=076) NEUTROPHILS RELATIVE PERCENT (BEAKER) (test 50 % qxzz=410) LYMPHOCYTES RELATIVE PERCENT (BEAKER) (test 25 % velg=698) MONOCYTES RELATIVE PERCENT (BEAKER) (test 19 % zexx=873) EOSINOPHILS RELATIVE PERCENT (BEAKER) (test 5 % fbau=563) BASOPHILS RELATIVE PERCENT (BEAKER) (test 1 % undh=249) NEUTROPHILS ABSOLUTE COUNT (BEAKER) (test 1.69 K/ L 1.80-8.00 sabe=811) LYMPHOCYTES ABSOLUTE COUNT (BEAKER) (test 0.83 K/ L 1.48-4.50 lomm=389) MONOCYTES ABSOLUTE COUNT (BEAKER) (test foci=622) 0.65 K/ L 0.00-1.30 EOSINOPHILS ABSOLUTE COUNT (BEAKER) (test 0.17 K/ L 0.00-0.50 gfsw=731) BASOPHILS ABSOLUTE COUNT (BEAKER) (test fwxq=225) 0.04 K/ L 0.00-0.20 0.00PROTHROMBIN [id number] 08:01:00 Test Item Value Reference Range Comments PROTIME (BEAKER) (test bpze=393) 27.6 seconds 11.7-14.7 INR (BEAKER) (test meno=552) 2.6 <=5.9 RECOMMENDED COUMADIN/WARFARIN INR THERAPY RANGESSTANDARD DOSE: 2.0 - 3.0 Includes: PROPHYLAXIS forvenous thrombosis, systemic embolization; TREATMENT for venous thrombosis and/or pulmonary embolus.HIGH RISK: Target INR is 2.5-3.5 for patients with mechanical heart valves.CALCIUM, [id number] 07:58:00 Test Item Value Reference Range Comments CALCIUM IONIZED (BEAKER) (test epow=891) 1.00 mmol/L 1.12-1.27 PH, BLOOD (BEAKER) (test znia=1524) 7.53 URINALYSIS W/ [id number] 18:42:00 Test Item Value Reference Range Comments COLOR (BEAKER) (test qoij=822) Yellow CLARITY (BEAKER) (test iyqr=038) Clear SPECIFIC GRAVITY UA (BEAKER) (test 1.009 1.001-1.035 pzzp=940) PH UA (BEAKER) (test momv=021) 7.5 5.0-8.0 PROTEIN UA (BEAKER) (test yqos=782) Negative Negative GLUCOSE UA (BEAKER) (test npip=476) Negative Negative KETONES UA (BEAKER) (test lpcu=667) Negative Negative BILIRUBIN UA (BEAKER) (test ixmx=014) Negative Negative BLOOD UA (BEAKER) (test zhbs=011) Negative Negative NITRITE UA (BEAKER) (test wzch=078) Negative Negative LEUKOCYTE ESTERASE UA (BEAKER) (test Negative Negative xzce=124) UROBILINOGEN UA (BEAKER) (test jhiy=894) 3.0 mg/dL 0.2-1.0 RBC UA (BEAKER) (test ruwg=924) 6 /HPF WBC UA (BEAKER) (test srxg=799) 1 /HPF SOURCE(BEAKER) (test biqh=7360) Urine, Clean Catch PROTHROMBIN [id number] 15:13:00 Test Item Value Reference Range Comments PROTIME (BEAKER) (test buwp=991) 31.4 seconds 11.7-14.7 INR (BEAKER) (test mqwu=080) 3.0 <=5.9 RECOMMENDED COUMADIN/WARFARIN INR THERAPY RANGESSTANDARD DOSE: 2.0 - 3.0 Includes: PROPHYLAXIS forvenous thrombosis, systemic embolization; TREATMENT for venous thrombosis and/or pulmonary embolus.HIGH RISK: Target INR is 2.5-3.5 for patients with mechanical heart valves.Draw after vitamin K administrationCBC W/PLT COUNT & AUTO [id number] 07:02:00 Test Item Value Reference Range Comments WHITE BLOOD CELL COUNT (BEAKER) (test uqqj=087) 3.0 K/ L 4.0-10.0 RED BLOOD CELL COUNT (BEAKER) (test xvuo=536) 2.21 M/ L 4.20-5.80 HEMOGLOBIN (BEAKER) (test xnkp=998) 7.5 GM/DL 13.0-16.8 HEMATOCRIT (BEAKER) (test rypq=663) 23.5 % 40.0-50.0 MEAN CORPUSCULAR VOLUME (BEAKER) (test dexp=059) 106.0 fL 82.0-98.0 MEAN CORPUSCULAR HEMOGLOBIN (BEAKER) (test 34.0 pg 27.0-33.0 xbzz=645) MEAN CORPUSCULAR HEMOGLOBIN CONC (BEAKER) (test 32.0 GM/DL 32.0-36.0 kcjk=711) RED CELL DISTRIBUTION WIDTH (BEAKER) (test 13.0 % 10.3-14.2 wdsz=689) PLATELET COUNT (BEAKER) (test nzus=089) 81 K/CU MM 150-430 MEAN PLATELET VOLUME (BEAKER) (test elnw=510) 6.3 fL 6.5-10.5 NUCLEATED RED BLOOD CELLS (BEAKER) (test 0 /100 WBC 0-0 fumg=689) NEUTROPHILS RELATIVE PERCENT (BEAKER) (test 52 % qfcl=699) LYMPHOCYTES RELATIVE PERCENT (BEAKER) (test 24 % yaht=252) MONOCYTES RELATIVE PERCENT (BEAKER) (test 20 % eeru=968) EOSINOPHILS RELATIVE PERCENT (BEAKER) (test 3 % dstv=132) BASOPHILS RELATIVE PERCENT (BEAKER) (test 1 % zsko=761) NEUTROPHILS ABSOLUTE COUNT (BEAKER) (test 1.53 K/ L 1.80-8.00 xfoy=030) LYMPHOCYTES ABSOLUTE COUNT (BEAKER) (test 0.71 K/ L 1.48-4.50 fppj=270) MONOCYTES ABSOLUTE COUNT (BEAKER) (test wnzs=972) 0.60 K/ L 0.00-1.30 EOSINOPHILS ABSOLUTE COUNT (BEAKER) (test 0.10 K/ L 0.00-0.50 xgki=446) BASOPHILS ABSOLUTE COUNT (BEAKER) (test rzqt=807) 0.03 K/ L 0.00-0.20 0.00BASIC METABOLIC [id number] 06:29:00 Test Item Value Reference Range Comments SODIUM (BEAKER) (test 135 meq/L 136-145 nlwq=446) POTASSIUM (BEAKER) (test 4.0 meq/L 3.5-5.1 umti=438) CHLORIDE (BEAKER) (test 106 meq/L 98-107 zcch=124) CO2 (BEAKER) (test 22 meq/L 22-29 ntrp=362) BLOOD UREA NITROGEN 17 mg/dL 7-21 (BEAKER) (test hvke=748) CREATININE (BEAKER) (test 1.46 mg/dL 0.57-1.25 zttb=795) GLUCOSE RANDOM (BEAKER) 75 mg/dL 70-105 (test pzcu=228) CALCIUM (BEAKER) (test 8.0 mg/dL 8.4-10.2 xliq=464) EGFR (BEAKER) (test 51 mL/min/1.73 sq m ESTIMATED GFR IS NOT dize=5573) ACCURATE CREATININE CLEARANCE IN PREDICTING GLOMERULAR FILTRATION RATE. ESTIMATED GFR IS NOT APPLICABLE FOR DIALYSIS PATIENTS. Specimen moderately ictericHEPATIC FUNCTION [id number] 06:29:00 Test Item Value Reference Range Comments TOTAL PROTEIN (BEAKER) (test corl=886) 5.9 gm/dL 6.0-8.3 ALBUMIN (BEAKER) (test ueor=0516) 3.0 g/dL 3.5-5.0 BILIRUBIN TOTAL (BEAKER) (test mvgj=478) 5.4 mg/dL 0.2-1.2 BILIRUBIN DIRECT (BEAKER) (test lxmu=604) 2.7 mg/dL 0.1-0.5 ALKALINE PHOSPHATASE (BEAKER) (test ilaw=640) 65 U/L 40-150 AST (SGOT) (BEAKER) (test rvmw=218) 27 U/L 5-34 ALT (SGPT) (BEAKER) (test htoi=598) 7 U/L 6-55 Specimen moderately ictericPROTHROMBIN [id number] 06:23:00 Test Item Value Reference Range Comments PROTIME (BEAKER) (test oujk=116) 31.2 seconds 11.7-14.7 INR (BEAKER) (test whie=257) 3.0 <=5.9 RECOMMENDED COUMADIN/WARFARIN INR THERAPY RANGESSTANDARD DOSE: 2.0 - 3.0 Includes: PROPHYLAXIS forvenous thrombosis, systemic embolization; TREATMENT for venous thrombosis and/or pulmonary embolus.HIGH RISK: Target INR is 2.5-3.5 for patients with mechanical heart valves.CBC W/PLT COUNT & AUTO [id number] 06:26:00 Test Item Value Reference Range Comments WHITE BLOOD CELL COUNT (BEAKER) (test wgvx=812) 3.0 K/ L 4.0-10.0 RED BLOOD CELL COUNT (BEAKER) (test swzd=776) 2.16 M/ L 4.20-5.80 HEMOGLOBIN (BEAKER) (test rvlb=093) 7.4 GM/DL 13.0-16.8 HEMATOCRIT (BEAKER) (test pzgp=144) 23.1 % 40.0-50.0 MEAN CORPUSCULAR VOLUME (BEAKER) (test hfot=917) 107.0 fL 82.0-98.0 MEAN CORPUSCULAR HEMOGLOBIN (BEAKER) (test 34.4 pg 27.0-33.0 jwad=615) MEAN CORPUSCULAR HEMOGLOBIN CONC (BEAKER) (test 32.1 GM/DL 32.0-36.0 xoyi=498) RED CELL DISTRIBUTION WIDTH (BEAKER) (test 13.1 % 10.3-14.2 dbqx=388) PLATELET COUNT (BEAKER) (test nnvc=902) 72 K/CU MM 150-430 MEAN PLATELET VOLUME (BEAKER) (test xurr=692) 6.1 fL 6.5-10.5 NUCLEATED RED BLOOD CELLS (BEAKER) (test 0 /100 WBC 0-0 vyxz=968) NEUTROPHILS RELATIVE PERCENT (BEAKER) (test 58 % hvsk=425) LYMPHOCYTES RELATIVE PERCENT (BEAKER) (test 21 % uovp=143) MONOCYTES RELATIVE PERCENT (BEAKER) (test 15 % dvkg=733) EOSINOPHILS RELATIVE PERCENT (BEAKER) (test 4 % cmjs=256) BASOPHILS RELATIVE PERCENT (BEAKER) (test 1 % tfft=438) NEUTROPHILS ABSOLUTE COUNT (BEAKER) (test 1.73 K/ L 1.80-8.00 pxbk=727) LYMPHOCYTES ABSOLUTE COUNT (BEAKER) (test 0.64 K/ L 1.48-4.50 sgks=085) MONOCYTES ABSOLUTE COUNT (BEAKER) (test xbwq=229) 0.45 K/ L 0.00-1.30 EOSINOPHILS ABSOLUTE COUNT (BEAKER) (test 0.13 K/ L 0.00-0.50 ydpd=506) BASOPHILS ABSOLUTE COUNT (BEAKER) (test eyzx=369) 0.02 K/ L 0.00-0.20 0.00BASIC METABOLIC [id number] 06:24:00 Test Item Value Reference Range Comments SODIUM (BEAKER) (test 134 meq/L 136-145 glib=179) POTASSIUM (BEAKER) (test 3.7 meq/L 3.5-5.1 qjit=622) CHLORIDE (BEAKER) (test 105 meq/L 98-107 bvdm=333) CO2 (BEAKER) (test 21 meq/L 22-29 pviz=417) BLOOD UREA NITROGEN 18 mg/dL 7-21 (BEAKER) (test iqnl=242) CREATININE (BEAKER) (test 1.53 mg/dL 0.57-1.25 yqzx=980) GLUCOSE RANDOM (BEAKER) 103 mg/dL 70-105 (test yxvb=270) CALCIUM (BEAKER) (test 7.6 mg/dL 8.4-10.2 yyye=709) EGFR (BEAKER) (test 48 mL/min/1.73 sq m ESTIMATED GFR IS NOT vvuj=3706) ACCURATE CREATININE CLEARANCE IN PREDICTING GLOMERULAR FILTRATION RATE. ESTIMATED GFR IS NOT APPLICABLE FOR DIALYSIS PATIENTS. Specimen [facility] ictericHEPATIC FUNCTION [id number] 06:19:00 Test Item Value Reference Range Comments TOTAL PROTEIN (BEAKER) (test dase=143) 5.6 gm/dL 6.0-8.3 ALBUMIN (BEAKER) (test yemc=5219) 2.4 g/dL 3.5-5.0 BILIRUBIN TOTAL (BEAKER) (test djfg=257) 4.8 mg/dL 0.2-1.2 BILIRUBIN DIRECT (BEAKER) (test zxrj=574) 2.6 mg/dL 0.1-0.5 ALKALINE PHOSPHATASE (BEAKER) (test lgbk=737) 70 U/L 40-150 AST (SGOT) (BEAKER) (test sbpe=716) 28 U/L 5-34 ALT (SGPT) (BEAKER) (test rzwk=769) 11 U/L 6-55 Specimen moderately ictericPROTHROMBIN [id number] 06:00:00 Test Item Value Reference Range Comments PROTIME (BEAKER) (test xqsf=952) 36.7 seconds 11.7-14.7 INR (BEAKER) (test fzcx=574) 3.7 <=5.9 RECOMMENDED COUMADIN/WARFARIN INR THERAPY RANGESSTANDARD DOSE: 2.0 - 3.0 Includes: PROPHYLAXIS forvenous thrombosis, systemic embolization; TREATMENT for venous thrombosis and/or pulmonary embolus.HIGH RISK: Target INR is 2.5-3.5 for patients with mechanical heart valves.BODY FLUID CULTURE + GRAM [id number] 00:51:00 Test Item Value Reference Range Comments CULTURE (BEAKER) (test hsfv=6798) No growth GRAM STAIN RESULT (BEAKER) (test 3+ WBCs szhl=8702) GRAM STAIN RESULT (BEAKER) (test No organisms seen nnhl=51072) BLOOD [id number] 17:08:00 Test Item Value Reference Range Comments CULTURE (BEAKER) (test ligt=5612) No growth in 5 days BLOOD [id number] 17:06:00 Test Item Value Reference Range Comments CULTURE (BEAKER) (test ougp=5578) No growth in 5 days CBC W/PLT COUNT & AUTO [id number] 07:05:00 Test Item Value Reference Range Comments WHITE BLOOD CELL COUNT (BEAKER) (test ptth=568) 3.5 K/ L 4.0-10.0 RED BLOOD CELL COUNT (BEAKER) (test kule=173) 2.16 M/ L 4.20-5.80 HEMOGLOBIN (BEAKER) (test rrkb=553) 7.8 GM/DL 13.0-16.8 HEMATOCRIT (BEAKER) (test swfo=376) 23.9 % 40.0-50.0 MEAN CORPUSCULAR VOLUME (BEAKER) (test gxva=022) 111.0 fL 82.0-98.0 MEAN CORPUSCULAR HEMOGLOBIN (BEAKER) (test 36.3 pg 27.0-33.0 kyto=008) MEAN CORPUSCULAR HEMOGLOBIN CONC (BEAKER) (test 32.8 GM/DL 32.0-36.0 afhn=345) RED CELL DISTRIBUTION WIDTH (BEAKER) (test 13.9 % 10.3-14.2 uflr=658) PLATELET COUNT (BEAKER) (test nyyp=102) 72 K/CU MM 150-430 MEAN PLATELET VOLUME (BEAKER) (test ewgh=044) 6.4 fL 6.5-10.5 NUCLEATED RED BLOOD CELLS (BEAKER) (test 0 /100 WBC 0-0 nipj=018) NEUTROPHILS RELATIVE PERCENT (BEAKER) (test 51 % cshv=875) LYMPHOCYTES RELATIVE PERCENT (BEAKER) (test 25 % trpg=797) MONOCYTES RELATIVE PERCENT (BEAKER) (test 18 % cndb=425) EOSINOPHILS RELATIVE PERCENT (BEAKER) (test 6 % psob=462) BASOPHILS RELATIVE PERCENT (BEAKER) (test 0 % dmfv=042) NEUTROPHILS ABSOLUTE COUNT (BEAKER) (test 1.77 K/ L 1.80-8.00 bkjm=361) LYMPHOCYTES ABSOLUTE COUNT (BEAKER) (test 0.87 K/ L 1.48-4.50 fvfg=785) MONOCYTES ABSOLUTE COUNT (BEAKER) (test heun=508) 0.62 K/ L 0.00-1.30 EOSINOPHILS ABSOLUTE COUNT (BEAKER) (test 0.22 K/ L 0.00-0.50 bjhm=999) BASOPHILS ABSOLUTE COUNT (BEAKER) (test timk=324) 0.01 K/ L 0.00-0.20 0.00BASIC METABOLIC [id number] 06:54:00 Test Item Value Reference Range Comments SODIUM (BEAKER) (test 137 meq/L 136-145 lelm=189) POTASSIUM (BEAKER) (test 3.8 meq/L 3.5-5.1 gqzw=095) CHLORIDE (BEAKER) (test 109 meq/L 98-107 fgee=182) CO2 (BEAKER) (test 21 meq/L 22-29 glqd=202) BLOOD UREA NITROGEN 17 mg/dL 7-21 (BEAKER) (test nkdp=392) CREATININE (BEAKER) (test 1.60 mg/dL 0.57-1.25 aolf=333) GLUCOSE RANDOM (BEAKER) 76 mg/dL 70-105 (test uzrl=323) CALCIUM (BEAKER) (test 7.5 mg/dL 8.4-10.2 mrci=739) EGFR (BEAKER) (test 46 mL/min/1.73 sq m ESTIMATED GFR IS NOT epuz=2993) ACCURATE CREATININE CLEARANCE IN PREDICTING GLOMERULAR FILTRATION RATE. ESTIMATED GFR IS NOT APPLICABLE FOR DIALYSIS PATIENTS. Specimen moderately ictericHEPATIC FUNCTION [id number] 06:53:00 Test Item Value Reference Range Comments TOTAL PROTEIN (BEAKER) (test qmbr=977) 5.6 gm/dL 6.0-8.3 ALBUMIN (BEAKER) (test divs=2322) 2.4 g/dL 3.5-5.0 BILIRUBIN TOTAL (BEAKER) (test mkuy=231) 4.5 mg/dL 0.2-1.2 BILIRUBIN DIRECT (BEAKER) (test kodn=199) 2.7 mg/dL 0.1-0.5 ALKALINE PHOSPHATASE (BEAKER) (test jbhe=471) 74 U/L 40-150 AST (SGOT) (BEAKER) (test vmkf=204) 36 U/L 5-34 ALT (SGPT) (BEAKER) (test ubsz=248) 13 U/L 6-55 Specimen moderately ictericB-TYPE NATRIURETIC FACTOR (BNP)[id number] 06:52:00 Test Item Value Reference Range Comments B-TYPE NATRIURETIC PEPTIDE (BEAKER) (test 446 pg/mL 0-100 ttpj=537) PROTHROMBIN [id number] 06:36:00 Test Item Value Reference Range Comments PROTIME (BEAKER) (test xnxn=709) 28.7 seconds 11.7-14.7 INR (BEAKER) (test zefw=037) 2.7 <=5.9 RECOMMENDED COUMADIN/WARFARIN INR THERAPY RANGESSTANDARD DOSE: 2.0 - 3.0 Includes: PROPHYLAXIS forvenous thrombosis, systemic embolization; TREATMENT for venous thrombosis and/or pulmonary embolus.HIGH RISK: Target INR is 2.5-3.5 for patients with mechanical heart valves.EOSINOPHIL SMEAR, [id number] 21: 44:00 Test Item Value Reference Range Comments EOSINOPHIL SMEAR, URINE (BEAKER) (test No EOS seen No EOS seen zcro=6988) CREATININE, RANDOM [id number] 18:02:00 Test Item Value Reference Range Comments CREATININE URINE (BEAKER) (test mxfz=467) 96.3 mg/dL Reference Range: No NormalsSODIUM, RANDOM [id number] 18:02:00 Test Item Value Reference Range Comments SODIUM URINE (BEAKER) (test xvxs=952) 58 meq/L Reference Range: No NormalsURINALYSIS W/ [id number] 17:33:00 Test Item Value Reference Range Comments COLOR (BEAKER) (test pxjk=272) Yellow CLARITY (BEAKER) (test wjlh=923) Clear SPECIFIC GRAVITY UA (BEAKER) (test mmif=519) 1.009 1.001-1.035 PH UA (BEAKER) (test oeql=509) 6.0 5.0-8.0 PROTEIN UA (BEAKER) (test kveo=672) Negative Negative GLUCOSE UA (BEAKER) (test bsbx=182) Negative Negative KETONES UA (BEAKER) (test ayol=466) Negative Negative BILIRUBIN UA (BEAKER) (test grej=567) Negative Negative BLOOD UA (BEAKER) (test ptnb=859) Negative Negative NITRITE UA (BEAKER) (test roxq=332) Negative Negative LEUKOCYTE ESTERASE UA (BEAKER) (test glor=461) Negative Negative UROBILINOGEN UA (BEAKER) (test curo=296) 4.0 mg/dL 0.2-1.0 RBC UA (BEAKER) (test pvey=449) < /HPF WBC UA (BEAKER) (test ekto=172) 2 /HPF BACTERIA (BEAKER) (test xlfs=664) Rare SOURCE(BEAKER) (test xbxz=2335) CBC W/PLT COUNT & AUTO [id number] 06:53:00 Test Item Value Reference Range Comments WHITE BLOOD CELL COUNT (BEAKER) (test vkgb=915) 3.5 K/ L 4.0-10.0 RED BLOOD CELL COUNT (BEAKER) (test nzaf=407) 2.17 M/ L 4.20-5.80 HEMOGLOBIN (BEAKER) (test tmwk=063) 7.9 GM/DL 13.0-16.8 HEMATOCRIT (BEAKER) (test gjzy=219) 23.9 % 40.0-50.0 MEAN CORPUSCULAR VOLUME (BEAKER) (test hkka=228) 110.0 fL 82.0-98.0 MEAN CORPUSCULAR HEMOGLOBIN (BEAKER) (test 36.1 pg 27.0-33.0 momo=316) MEAN CORPUSCULAR HEMOGLOBIN CONC (BEAKER) (test 32.9 GM/DL 32.0-36.0 gxox=579) RED CELL DISTRIBUTION WIDTH (BEAKER) (test 14.0 % 10.3-14.2 izwf=343) PLATELET COUNT (BEAKER) (test gvbr=402) 77 K/CU MM 150-430 MEAN PLATELET VOLUME (BEAKER) (test xwdj=120) 6.1 fL 6.5-10.5 NUCLEATED RED BLOOD CELLS (BEAKER) (test 0 /100 WBC 0-0 xohe=962) NEUTROPHILS RELATIVE PERCENT (BEAKER) (test 56 % wkzr=274) LYMPHOCYTES RELATIVE PERCENT (BEAKER) (test 20 % cvtv=631) MONOCYTES RELATIVE PERCENT (BEAKER) (test 18 % ippf=630) EOSINOPHILS RELATIVE PERCENT (BEAKER) (test 6 % wuxa=037) BASOPHILS RELATIVE PERCENT (BEAKER) (test 1 % aysj=214) NEUTROPHILS ABSOLUTE COUNT (BEAKER) (test 1.95 K/ L 1.80-8.00 uwmg=670) LYMPHOCYTES ABSOLUTE COUNT (BEAKER) (test 0.69 K/ L 1.48-4.50 izqq=243) MONOCYTES ABSOLUTE COUNT (BEAKER) (test chxi=552) 0.62 K/ L 0.00-1.30 EOSINOPHILS ABSOLUTE COUNT (BEAKER) (test 0.20 K/ L 0.00-0.50 rmmd=866) BASOPHILS ABSOLUTE COUNT (BEAKER) (test nrac=859) 0.03 K/ L 0.00-0.20 0.00BASI METABOLIC [id number] 06:45:00 Test Item Value Reference Range Comments SODIUM (BEAKER) (test 134 meq/L 136-145 pgja=936) POTASSIUM (BEAKER) (test 3.6 meq/L 3.5-5.1 ekrt=062) CHLORIDE (BEAKER) (test 106 meq/L 98-107 ncfh=349) CO2 (BEAKER) (test 21 meq/L 22-29 jtev=291) BLOOD UREA NITROGEN 14 mg/dL 7-21 (BEAKER) (test dwtx=968) CREATININE (BEAKER) (test 1.33 mg/dL 0.57-1.25 wbcb=918) GLUCOSE RANDOM (BEAKER) 71 mg/dL 70-105 (test zclh=409) CALCIUM (BEAKER) (test 7.6 mg/dL 8.4-10.2 flqj=832) EGFR (BEAKER) (test 57 mL/min/1.73 sq m ESTIMATED GFR IS NOT arts=8437) ACCURATE CREATININE CLEARANCE IN PREDICTING GLOMERULAR FILTRATION RATE. ESTIMATED GFR IS NOT APPLICABLE FOR DIALYSIS PATIENTS. Specimen moderately ictericHEPATIC FUNCTION [id number] 06:40:00 Test Item Value Reference Range Comments TOTAL PROTEIN (BEAKER) (test skzd=844) 5.6 gm/dL 6.0-8.3 ALBUMIN (BEAKER) (test umwh=2599) 2.1 g/dL 3.5-5.0 BILIRUBIN TOTAL (BEAKER) (test kbul=668) 4.4 mg/dL 0.2-1.2 BILIRUBIN DIRECT (BEAKER) (test udqn=304) 2.9 mg/dL 0.1-0.5 ALKALINE PHOSPHATASE (BEAKER) (test mney=905) 86 U/L 40-150 AST (SGOT) (BEAKER) (test losu=558) 45 U/L 5-34 ALT (SGPT) (BEAKER) (test iiml=689) 13 U/L 6-55 Specimen moderately ictericPROTHROMBIN TIME/[id number] 06:05:00 Test Item Value Reference Range Comments PROTIME (BEAKER) (test hgen=402) 29.4 seconds 11.7-14.7 INR (BEAKER) (test jmjj=436) 2.8 <=5.9 RECOMMENDED COUMADIN/WARFARIN INR THERAPY RANGESSTANDARD DOSE: 2.0 - 3.0 Includes: PROPHYLAXIS forvenous thrombosis, systemic embolization; TREATMENT for venous thrombosis and/or pulmonary embolus.HIGH RISK: Target INR is 2.5-3.5 for patients with mechanical heart valves.BODY FLUID CELL COUNT WITH [id number] 20:51:00 Test Item Value Reference Range Comments APPEARANCE FLUID (BEAKER) (test ozcl=011) Slightly Hazy Clear COLOR FLUID (BEAKER) (test qvsu=657) Yellow Colorless, Straw RBC FLUID (BEAKER) (test mexa=740) 545 /cu mm <=1 ADJUSTED WBC FLUID (BEAKER) (test ztot=4503) 104 /cu mm <=5 LINING CELLS (BEAKER) (test snvv=1269) 1 /cu mm <=1 NEUTROPHILS FLUID (BEAKER) (test vixy=3924) 3 % LYMPHS FLUID (BEAKER) (test huyc=730) 13 % MONO/MACROPHAGE FLUID (BEAKER) (test 84 % atck=156) EOSINOPHILS FLUID (BEAKER) (test dmjk=640) 0 % BASO FLUID (BEAKER) (test mltb=413) 0 % CONTAINER BODY FLUID (BEAKER) (test EDTA Tube ovgl=0440) POCT-GLUCOSE [id number] 18:48:00 Test Item Value Reference Range Comments POC-GLUCOSE METER (BEAKER) 105 mg/dL 70-[address] [facility] [address] [facility] (test elfw=6694) [facility] [id number] BASIC METABOLIC [id number] 05:45:00 Test Item Value Reference Range Comments SODIUM (BEAKER) (test 133 meq/L 136-145 xbpx=345) POTASSIUM (BEAKER) (test 4.3 meq/L 3.5-5.1 Specimen moderately ugfv=610) hemolyzed CHLORIDE (BEAKER) (test 107 meq/L 98-107 gqvf=932) CO2 (BEAKER) (test 19 meq/L 22-29 orey=106) BLOOD UREA NITROGEN 10 mg/dL 7-21 (BEAKER) (test xtgy=583) CREATININE (BEAKER) (test 0.86 mg/dL 0.57-1.25 Specimen moderately aqaa=679) hemolyzed GLUCOSE RANDOM (BEAKER) 68 mg/dL 70-105 (test lxay=006) CALCIUM (BEAKER) (test 7.5 mg/dL 8.4-10.2 tzlo=604) EGFR (BEAKER) (test 94 mL/min/1.73 sq m ESTIMATED GFR IS NOT kfxd=4577) ACCURATE CREATININE CLEARANCE IN PREDICTING GLOMERULAR FILTRATION RATE. ESTIMATED GFR IS NOT APPLICABLE FOR DIALYSIS PATIENTS. Specimen slightly ictericHEPATIC FUNCTION [id number] 05:45:00 Test Item Value Reference Range Comments TOTAL PROTEIN (BEAKER) (test 5.9 gm/dL 6.0-8.3 Specimen moderately hemolyzed ykvi=770) ALBUMIN (BEAKER) (test 1.9 g/dL 3.5-5.0 Specimen moderately hemolyzed vxvb=2929) BILIRUBIN TOTAL (BEAKER) (test 4.4 mg/dL 0.2-1.2 Specimen moderately hemolyzed hypg=944) BILIRUBIN DIRECT (BEAKER) 2.6 mg/dL 0.1-0.5 Specimen moderately hemolyzed (test lfps=497) ALKALINE PHOSPHATASE (BEAKER) 86 U/L 40-150 (test nmac=162) AST (SGOT) (BEAKER) (test 74 U/L 5-34 Specimen moderately hemolyzed uhem=037) ALT (SGPT) (BEAKER) (test 17 U/L 6-55 Specimen moderately clee=420) hemolyzed Specimen slightly ictericCBC W/PLT COUNT & AUTO [id number] 05:21 :00 Test Item Value Reference Range Comments WHITE BLOOD CELL COUNT (BEAKER) (test xecn=885) 3.5 K/ L 4.0-10.0 RED BLOOD CELL COUNT (BEAKER) (test vrlp=438) 2.06 M/ L 4.20-5.80 HEMOGLOBIN (BEAKER) (test zeet=361) 7.9 GM/DL 13.0-16.8 HEMATOCRIT (BEAKER) (test szrf=472) 22.8 % 40.0-50.0 MEAN CORPUSCULAR VOLUME (BEAKER) (test kfoa=331) 110.0 fL 82.0-98.0 MEAN CORPUSCULAR HEMOGLOBIN (BEAKER) (test 38.2 pg 27.0-33.0 evto=738) MEAN CORPUSCULAR HEMOGLOBIN CONC (BEAKER) (test 34.6 GM/DL 32.0-36.0 gqlx=274) RED CELL DISTRIBUTION WIDTH (BEAKER) (test 13.5 % 10.3-14.2 emxs=382) PLATELET COUNT (BEAKER) (test actv=907) 61 K/CU MM 150-430 MEAN PLATELET VOLUME (BEAKER) (test zobb=542) 6.8 fL 6.5-10.5 NUCLEATED RED BLOOD CELLS (BEAKER) (test 0 /100 WBC 0-0 yrwi=754) NEUTROPHILS RELATIVE PERCENT (BEAKER) (test 51 % sljy=725) LYMPHOCYTES RELATIVE PERCENT (BEAKER) (test 24 % lwjd=497) MONOCYTES RELATIVE PERCENT (BEAKER) (test 18 % xqzd=329) EOSINOPHILS RELATIVE PERCENT (BEAKER) (test 7 % kcdo=290) BASOPHILS RELATIVE PERCENT (BEAKER) (test 1 % rrpv=707) NEUTROPHILS ABSOLUTE COUNT (BEAKER) (test 1.76 K/ L 1.80-8.00 nqez=429) LYMPHOCYTES ABSOLUTE COUNT (BEAKER) (test 0.85 K/ L 1.48-4.50 hiqm=093) MONOCYTES ABSOLUTE COUNT (BEAKER) (test cfgl=311) 0.61 K/ L 0.00-1.30 EOSINOPHILS ABSOLUTE COUNT (BEAKER) (test 0.23 K/ L 0.00-0.50 phyl=241) BASOPHILS ABSOLUTE COUNT (BEAKER) (test psox=937) 0.02 K/ L 0.00-0.20 0.00PROTHROMBIN [id number] 05:19:00 Test Item Value Reference Range Comments PROTIME (BEAKER) (test cntw=992) 28.2 seconds 11.7-14.7 INR (BEAKER) (test fzyg=591) 2.6 <=5.9 RECOMMENDED COUMADIN/WARFARIN INR THERAPY RANGESSTANDARD DOSE: 2.0 - 3.0 Includes: PROPHYLAXIS forvenous thrombosis, systemic embolization; TREATMENT for venous thrombosis and/or pulmonary embolus.HIGH RISK: Target INR is 2.5-3.5 for patients with mechanical heart valves.BODY FLUID CULTURE + GRAM [id number] 14:14:00 Test Item Value Reference Range Comments CULTURE (BEAKER) (test rpcu=6036) No growth GRAM STAIN RESULT (BEAKER) (test 2+ WBCs olaq=7566) GRAM STAIN RESULT (BEAKER) (test No organisms seen vkak=72507) CBC W/PLT COUNT & AUTO [id number] 10:28:00 Test Item Value Reference Range Comments WHITE BLOOD CELL COUNT (BEAKER) (test mrct=879) 3.6 K/ L 4.0-10.0 RED BLOOD CELL COUNT (BEAKER) (test fodj=772) 2.17 M/ L 4.20-5.80 HEMOGLOBIN (BEAKER) (test udzy=330) 7.7 GM/DL 13.0-16.8 HEMATOCRIT (BEAKER) (test vegs=473) 23.8 % 40.0-50.0 MEAN CORPUSCULAR VOLUME (BEAKER) (test pncx=174) 110.0 fL 82.0-98.0 MEAN CORPUSCULAR HEMOGLOBIN (BEAKER) (test 35.3 pg 27.0-33.0 fhbr=308) MEAN CORPUSCULAR HEMOGLOBIN CONC (BEAKER) (test 32.1 GM/DL 32.0-36.0 rcyx=853) RED CELL DISTRIBUTION WIDTH (BEAKER) (test 13.7 % 10.3-14.2 hxgp=533) PLATELET COUNT (BEAKER) (test oecf=507) 62 K/CU MM 150-430 MEAN PLATELET VOLUME (BEAKER) (test cgtu=213) 6.5 fL 6.5-10.5 NUCLEATED RED BLOOD CELLS (BEAKER) (test 0 /100 WBC 0-0 bmfg=787) NEUTROPHILS RELATIVE PERCENT (BEAKER) (test 58 % mjir=611) LYMPHOCYTES RELATIVE PERCENT (BEAKER) (test 18 % mmju=731) MONOCYTES RELATIVE PERCENT (BEAKER) (test 17 % lbrn=302) EOSINOPHILS RELATIVE PERCENT (BEAKER) (test 8 % wzju=764) BASOPHILS RELATIVE PERCENT (BEAKER) (test 0 % runq=205) NEUTROPHILS ABSOLUTE COUNT (BEAKER) (test 2.10 K/ L 1.80-8.00 henj=195) LYMPHOCYTES ABSOLUTE COUNT (BEAKER) (test 0.63 K/ L 1.48-4.50 mpcg=005) MONOCYTES ABSOLUTE COUNT (BEAKER) (test ukpe=870) 0.59 K/ L 0.00-1.30 EOSINOPHILS ABSOLUTE COUNT (BEAKER) (test 0.28 K/ L 0.00-0.50 qsve=441) BASOPHILS ABSOLUTE COUNT (BEAKER) (test tvbj=259) 0.00 K/ L 0.00-0.20 [id number] 10:16:00 Test Item Value Reference Range Comments PROCALCITONIN (BEAKER) (test ucya=9666) < ng/mL <0.05 SEPSIS RISK (ng/mL)Low: 0.05-0.50Intermediate: 0.51-2.00High: & gt;=2.01HEPATIC FUNCTION [id number] 06:26:00 Test Item Value Reference Range Comments TOTAL PROTEIN (BEAKER) (test leuo=472) 5.6 gm/dL 6.0-8.3 ALBUMIN (BEAKER) (test piuw=2882) 1.9 g/dL 3.5-5.0 BILIRUBIN TOTAL (BEAKER) (test zpsz=193) 4.7 mg/dL 0.2-1.2 BILIRUBIN DIRECT (BEAKER) (test dccq=601) 2.9 mg/dL 0.1-0.5 ALKALINE PHOSPHATASE (BEAKER) (test ilkz=355) 85 U/L 40-150 AST (SGOT) (BEAKER) (test wawj=999) 53 U/L 5-34 ALT (SGPT) (BEAKER) (test jxqg=924) 14 U/L 6-55 Specimen moderately ictericBASIC METABOLIC [id number] 06:26:00 Test Item Value Reference Range Comments SODIUM (BEAKER) (test 134 meq/L 136-145 wlzl=963) POTASSIUM (BEAKER) (test 3.8 meq/L 3.5-5.1 vtjp=559) CHLORIDE (BEAKER) (test 107 meq/L 98-107 uhyx=263) CO2 (BEAKER) (test 19 meq/L 22-29 afai=252) BLOOD UREA NITROGEN 8 mg/dL 7-21 (BEAKER) (test njwe=578) CREATININE (BEAKER) (test 0.73 mg/dL 0.57-1.25 jsac=174) GLUCOSE RANDOM (BEAKER) 73 mg/dL 70-105 (test hpom=387) CALCIUM (BEAKER) (test 7.2 mg/dL 8.4-10.2 caxu=773) EGFR (BEAKER) (test 113 mL/min/1.73 sq m ESTIMATED GFR IS NOT czjt=8910) ACCURATE CREATININE CLEARANCE IN PREDICTING GLOMERULAR FILTRATION RATE. ESTIMATED GFR IS NOT APPLICABLE FOR DIALYSIS PATIENTS. Specimen moderately ictericPROTHROMBIN [id number] 06:05:00 Test Item Value Reference Range Comments PROTIME (BEAKER) (test qzil=033) 30.9 seconds 11.7-14.7 INR (BEAKER) (test zyfr=296) 3.0 <=5.9 RECOMMENDED COUMADIN/WARFARIN INR THERAPY RANGESSTANDARD DOSE: 2.0 - 3.0 Includes: PROPHYLAXIS forvenous thrombosis, systemic embolization; TREATMENT for venous thrombosis and/or pulmonary embolus.HIGH RISK: Target INR is 2.5-3.5 for patients with mechanical heart valves.[id number] 05:54:00 Test Item Value Reference Range Comments PREALBUMIN (BEAKER) (test vpvb=067) < mg/dL 14-45 URINE [id number] 12:11:00 Test Item Value Reference Range Comments CULTURE (BEAKER) (test jpzd=4279) No growth VANCOMYCIN LEVEL, [id number] 09:26:00 Test Item Value Reference Range Comments VANCOMYCIN TROUGH (BEAKER) (test rghz=510) 15.3 ug/mL 10.0-20.0 HEPATIC FUNCTION [id number] 06:17:00 Test Item Value Reference Range Comments TOTAL PROTEIN (BEAKER) (test utcs=650) 5.6 gm/dL 6.0-8.3 ALBUMIN (BEAKER) (test qypf=5644) 2.0 g/dL 3.5-5.0 BILIRUBIN TOTAL (BEAKER) (test sxeb=003) 4.2 mg/dL 0.2-1.2 BILIRUBIN DIRECT (BEAKER) (test mcuq=783) 2.7 mg/dL 0.1-0.5 ALKALINE PHOSPHATASE (BEAKER) (test aute=357) 98 U/L 40-150 AST (SGOT) (BEAKER) (test ijgc=159) 45 U/L 5-34 ALT (SGPT) (BEAKER) (test fqha=570) 12 U/L 6-55 Specimen slightly ictericBASIC METABOLIC [id number] 06:17:00 Test Item Value Reference Range Comments SODIUM (BEAKER) (test 133 meq/L 136-145 esgu=042) POTASSIUM (BEAKER) (test 3.4 meq/L 3.5-5.1 mquj=064) CHLORIDE (BEAKER) (test 107 meq/L 98-107 qwqp=299) CO2 (BEAKER) (test 22 meq/L 22-29 qkxf=907) BLOOD UREA NITROGEN 7 mg/dL 7-21 (BEAKER) (test luwe=872) CREATININE (BEAKER) (test 0.73 mg/dL 0.57-1.25 vmuq=598) GLUCOSE RANDOM (BEAKER) 87 mg/dL 70-105 (test oefp=812) CALCIUM (BEAKER) (test 7.2 mg/dL 8.4-10.2 yiuk=960) EGFR (BEAKER) (test 113 mL/min/1.73 sq m ESTIMATED GFR IS NOT avsj=9849) ACCURATE CREATININE CLEARANCE IN PREDICTING GLOMERULAR FILTRATION RATE. ESTIMATED GFR IS NOT APPLICABLE FOR DIALYSIS PATIENTS. Specimen slightly ictericPROTHROMBIN [id number] 06:04:00 Test Item Value Reference Range Comments PROTIME (BEAKER) (test jabh=817) 31.7 seconds 11.7-14.7 INR (BEAKER) (test hiph=226) 3.0 <=5.9 RECOMMENDED COUMADIN/WARFARIN INR THERAPY RANGESSTANDARD DOSE: 2.0 - 3.0 Includes: PROPHYLAXIS forvenous thrombosis, systemic embolization; TREATMENT for venous thrombosis and/or pulmonary embolus.HIGH RISK: Target INR is 2.5-3.5 for patients with mechanical heart valves.VITAMIN B12 AND [id number] 19:36 :00 Test Item Value Reference Range Comments VITAMIN B12 (BEAKER) (test nsqm=803) 1121 pg/mL 213-816 FOLATE (BEAKER) (test hgan=671) 18.3 ng/mL >=7.0 Effective 09/13/2014: Folate Reference Range ChangeNew: >=7.0 Previous: & gt;=5.4VITAMIN B12 AND [id number] 14:57:00 Test Item Value Reference Range Comments VITAMIN B12 (BEAKER) (test bwrk=108) 1325 pg/mL 213-816 FOLATE (BEAKER) (test bhxq=054) 8.3 ng/mL >=7.0 Effective 09/13/2014: Folate Reference Range ChangeNew: >=7.0 Previous: & gt;=5.4ANTI-NUCLEAR ANTIBODY (CHERYL)2017-02-03 13:56:00 Test Item Value Reference Range Comments ANTI-NUCLEAR ANTIBODY (CHERYL) (BEAKER) (test Negative Negative wyat=624) HEPATITIS B CORE ANTIBODY, [id number] 12:27:00 Test Item Value Reference Range Comments HEPATITIS B CORE TOTAL ANTIBODY (BEAKER) (test Nonreactive Nonreactive vzls=122) CRYPTOCOCCAL [id number] 11:25:00 Test Item Value Reference Range Comments CRYPTOCOCCAL ANTIGEN, SERUM (BEAKER) (test Negative Negative, Interference ngcd=6490) HEPATITIS B SURFACE [id number] 11:15:00 Test Item Value Reference Range Comments HEPATITIS B SURFACE ANTIBODY (BEAKER) (test < mIU/mL <8.0 zmug=280) HEPATITIS B SURFACE [id number] 09:53:00 Test Item Value Reference Range Comments HEPATITIS B SURFACE ANTIGEN (2) (BEAKER) (test Nonreactive Nonreactive iepp=5396) HIV-1 ANTIGEN WITH HIV-1/2 [id number] 09:53:00 Test Item Value Reference Range Comments HIV-1 ANTIGEN WITH HIV 1\T\2 ANTIBODY (2) Nonreactive Nonreactive (BEAKER) (test eqgv=0017) HEPATIC FUNCTION [id number] 07:01:00 Test Item Value Reference Range Comments TOTAL PROTEIN (BEAKER) (test ojga=107) 5.5 gm/dL 6.0-8.3 ALBUMIN (BEAKER) (test qldc=3799) 2.0 g/dL 3.5-5.0 BILIRUBIN TOTAL (BEAKER) (test hoix=066) 3.8 mg/dL 0.2-1.2 BILIRUBIN DIRECT (BEAKER) (test hwgh=676) 2.5 mg/dL 0.1-0.5 ALKALINE PHOSPHATASE (BEAKER) (test atdv=747) 108 U/L 40-150 AST (SGOT) (BEAKER) (test mfun=494) 40 U/L 5-34 ALT (SGPT) (BEAKER) (test jnwg=125) 10 U/L 6-55 Specimen slightly ictericBASIC METABOLIC [id number] 07:01:00 Test Item Value Reference Range Comments SODIUM (BEAKER) (test 133 meq/L 136-145 quln=248) POTASSIUM (BEAKER) (test 3.7 meq/L 3.5-5.1 eqvc=742) CHLORIDE (BEAKER) (test 108 meq/L 98-107 owdh=241) CO2 (BEAKER) (test 20 meq/L 22-29 ellq=494) BLOOD UREA NITROGEN 7 mg/dL 7-21 (BEAKER) (test gash=730) CREATININE (BEAKER) (test 0.76 mg/dL 0.57-1.25 hujd=022) GLUCOSE RANDOM (BEAKER) 100 mg/dL 70-105 (test hlnp=940) CALCIUM (BEAKER) (test 7.3 mg/dL 8.4-10.2 dusp=657) EGFR (BEAKER) (test 108 mL/min/1.73 sq m ESTIMATED GFR IS NOT yupo=1988) ACCURATE CREATININE CLEARANCE IN PREDICTING GLOMERULAR FILTRATION RATE. ESTIMATED GFR IS NOT APPLICABLE FOR DIALYSIS PATIENTS. Specimen slightly ictericCBC W/PLT COUNT & AUTO [id number] 06:53 :00 Test Item Value Reference Range Comments WHITE BLOOD CELL COUNT (BEAKER) (test tafb=189) 3.5 K/ L 4.0-10.0 RED BLOOD CELL COUNT (BEAKER) (test hvzh=632) 1.83 M/ L 4.20-5.80 HEMOGLOBIN (BEAKER) (test pmsy=615) 7.3 GM/DL 13.0-16.8 HEMATOCRIT (BEAKER) (test ckpv=251) 19.9 % 40.0-50.0 MEAN CORPUSCULAR VOLUME (BEAKER) (test solr=210) 109.0 fL 82.0-98.0 MEAN CORPUSCULAR HEMOGLOBIN (BEAKER) (test 39.9 pg 27.0-33.0 vdtp=878) MEAN CORPUSCULAR HEMOGLOBIN CONC (BEAKER) (test 36.6 GM/DL 32.0-36.0 qfun=494) RED CELL DISTRIBUTION WIDTH (BEAKER) (test 14.3 % 10.3-14.2 kwsb=807) PLATELET COUNT (BEAKER) (test xtse=679) 35 K/CU MM 150-430 MEAN PLATELET VOLUME (BEAKER) (test wsrt=989) 6.6 fL 6.5-10.5 NUCLEATED RED BLOOD CELLS (BEAKER) (test 0 /100 WBC 0-0 ymwt=694) NEUTROPHILS RELATIVE PERCENT (BEAKER) (test 60 % vlxt=087) LYMPHOCYTES RELATIVE PERCENT (BEAKER) (test 18 % vukl=060) MONOCYTES RELATIVE PERCENT (BEAKER) (test 17 % esyd=883) EOSINOPHILS RELATIVE PERCENT (BEAKER) (test 6 % rgit=762) BASOPHILS RELATIVE PERCENT (BEAKER) (test 0 % bvfq=451) NEUTROPHILS ABSOLUTE COUNT (BEAKER) (test 2.06 K/ L 1.80-8.00 yuqh=532) LYMPHOCYTES ABSOLUTE COUNT (BEAKER) (test 0.61 K/ L 1.48-4.50 redt=599) MONOCYTES ABSOLUTE COUNT (BEAKER) (test axmv=500) 0.58 K/ L 0.00-1.30 EOSINOPHILS ABSOLUTE COUNT (BEAKER) (test 0.19 K/ L 0.00-0.50 buli=830) BASOPHILS ABSOLUTE COUNT (BEAKER) (test hcnd=838) 0.01 K/ L 0.00-0.20 0.00PROTHROMBIN [id number] 06:39:00 Test Item Value Reference Range Comments PROTIME (BEAKER) (test mpup=213) 30.6 seconds 11.7-14.7 INR (BEAKER) (test zfxy=754) 2.9 <=5.9 RECOMMENDED COUMADIN/WARFARIN INR THERAPY RANGESSTANDARD DOSE: 2.0 - 3.0 Includes: PROPHYLAXIS forvenous thrombosis, systemic embolization; TREATMENT for venous thrombosis and/or pulmonary embolus.HIGH RISK: Target INR is 2.5-3.5 for patients with mechanical heart valves.URINALYSIS W/ [id number] 16 :58:00 Test Item Value Reference Range Comments COLOR (BEAKER) (test nhul=922) Yellow CLARITY (BEAKER) (test mznn=668) Clear SPECIFIC GRAVITY UA (BEAKER) (test 1.025 1.001-1.035 jpfv=538) PH UA (BEAKER) (test syai=649) 7.0 5.0-8.0 PROTEIN UA (BEAKER) (test eatq=889) Negative Negative GLUCOSE UA (BEAKER) (test znsz=973) Negative Negative KETONES UA (BEAKER) (test aodn=931) Negative Negative BILIRUBIN UA (BEAKER) (test rdrj=662) Positive Negative BLOOD UA (BEAKER) (test rkxw=914) Negative Negative NITRITE UA (BEAKER) (test cksc=394) Negative Negative LEUKOCYTE ESTERASE UA (BEAKER) (test Negative Negative kjfw=903) UROBILINOGEN UA (BEAKER) (test hkmz=704) 8.0 mg/dL 0.2-1.0 RBC UA (BEAKER) (test isxi=532) 0 /HPF WBC UA (BEAKER) (test bcku=381) 2 /HPF MUCUS (BEAKER) (test phoe=4703) Rare HYALINE CASTS (BEAKER) (test jgbg=277) 3 /LPF SOURCE(BEAKER) (test azzg=1379) Urine, Clean Catch [id number] 13:32:00 Test Item Value Reference Range Comments FERRITIN (BEAKER) (test rqlg=335) 116 ng/mL 5-275 Effective 09/13/2014: Reference Range ChangeNew: Male 5-275 Previous: Male 22-322 Female 5-275 Female 10-291HEPATITIS A ANTIBODY, [id number] 13:19:00 Test Item Value Reference Range Comments HEPATITIS A IGG ANTIBODY (BEAKER) (test dhhd=3666) Reactive Nonreactive ALPHA FETOPROTEIN (AFP), TUMOR [id number] 13:17:00 Test Item Value Reference Range Comments ALPHA-FETOPROTEIN (BEAKER) (test uwbm=5789) 4.5 ng/mL <10.0 Effective 09/13/2014: Reference Range ChangeNew: <10.0 Previous: 0.0- 8.0HEPATITIS C [id number] 13:17:00 Test Item Value Reference Range Comments HEPATITIS C ANTIBODY (BEAKER) (test xsvb=221) Nonreactive Nonreactive BODY FLUID CELL COUNT WITH [id number] 13:03:00 Test Item Value Reference Range Comments APPEARANCE FLUID (BEAKER) (test zhmj=887) Cloudy Clear COLOR FLUID (BEAKER) (test nqgg=054) Yellow Colorless, Straw RBC FLUID (BEAKER) (test ifbd=964) 1519 /cu mm <=1 ADJUSTED WBC FLUID (BEAKER) (test ksan=5340) 108 /cu mm <=5 LINING CELLS (BEAKER) (test yrlf=6288) 14 /cu mm <=1 NEUTROPHILS FLUID (BEAKER) (test alyb=4201) 11 % LYMPHS FLUID (BEAKER) (test zurp=068) 30 % MONO/MACROPHAGE FLUID (BEAKER) (test ohbc=730) 59 % EOSINOPHILS FLUID (BEAKER) (test nglv=662) 0 % BASO FLUID (BEAKER) (test xmms=552) 0 % CONTAINER BODY FLUID (BEAKER) (test cvew=6791) EDTA Tube BASIC METABOLIC [id number] 12:56:00 Test Item Value Reference Range Comments SODIUM (BEAKER) (test 131 meq/L 136-145 tzhi=279) POTASSIUM (BEAKER) (test 4.0 meq/L 3.5-5.1 Specimen moderately xdhw=593) hemolyzed CHLORIDE (BEAKER) (test 105 meq/L 98-107 orep=715) CO2 (BEAKER) (test 18 meq/L 22-29 pqks=370) BLOOD UREA NITROGEN 6 mg/dL 7-21 (BEAKER) (test eevo=705) CREATININE (BEAKER) (test 0.72 mg/dL 0.57-1.25 Specimen moderately qmvq=006) hemolyzed GLUCOSE RANDOM (BEAKER) 103 mg/dL 70-105 (test ynkg=159) CALCIUM (BEAKER) (test 7.4 mg/dL 8.4-10.2 kubz=859) EGFR (BEAKER) (test 115 mL/min/1.73 sq m ESTIMATED GFR IS NOT vzhf=0111) ACCURATE CREATININE CLEARANCE IN PREDICTING GLOMERULAR FILTRATION RATE. ESTIMATED GFR IS NOT APPLICABLE FOR DIALYSIS PATIENTS. Specimen moderately ictericIRON, TIBC, % SAT. (WITHOUT FERRITIN)2017-02-02 12:56 :00 Test Item Value Reference Range Comments IRON (BEAKER) (test bqzh=409) 55 ug/dL 40-160 TOTAL IRON BINDING CAPACITY (BEAKER) (test 175 ug/dL 250-450 votg=334) IRON % SATURATION (2) (BEAKER) (test fdqf=4075) 31 % 20-55 HEPATIC FUNCTION [id number] 12:50:00 Test Item Value Reference Range Comments TOTAL PROTEIN (BEAKER) (test 6.7 gm/dL 6.0-8.3 Specimen moderately hemolyzed lxjb=383) ALBUMIN (BEAKER) (test 2.0 g/dL 3.5-5.0 Specimen moderately hemolyzed htbr=1475) BILIRUBIN TOTAL (BEAKER) (test 5.1 mg/dL 0.2-1.2 Specimen moderately hemolyzed nohq=470) BILIRUBIN DIRECT (BEAKER) 2.8 mg/dL 0.1-0.5 Specimen moderately hemolyzed (test vjtb=551) ALKALINE PHOSPHATASE (BEAKER) 99 U/L 40-150 (test ymgo=471) AST (SGOT) (BEAKER) (test 62 U/L 5-34 Specimen moderately hemolyzed dgxg=164) ALT (SGPT) (BEAKER) (test 15 U/L 6-55 Specimen moderately eboc=799) hemolyzed Specimen moderately ictericCBC W/PLT COUNT & AUTO [id number] 12: 47:00 Test Item Value Reference Range Comments WHITE BLOOD CELL COUNT (BEAKER) (test amkp=393) 3.3 K/ L 4.0-10.0 RED BLOOD CELL COUNT (BEAKER) (test vlry=326) 2.08 M/ L 4.20-5.80 HEMOGLOBIN (BEAKER) (test xbbn=918) 7.8 GM/DL 13.0-16.8 HEMATOCRIT (BEAKER) (test mhsw=535) 22.9 % 40.0-50.0 MEAN CORPUSCULAR VOLUME (BEAKER) (test supk=624) 110.0 fL 82.0-98.0 MEAN CORPUSCULAR HEMOGLOBIN (BEAKER) (test 37.4 pg 27.0-33.0 iubc=182) MEAN CORPUSCULAR HEMOGLOBIN CONC (BEAKER) (test 34.1 GM/DL 32.0-36.0 jwce=971) RED CELL DISTRIBUTION WIDTH (BEAKER) (test 15.0 % 10.3-14.2 iuzg=795) PLATELET COUNT (BEAKER) (test wioj=690) 48 K/CU MM 150-430 MEAN PLATELET VOLUME (BEAKER) (test ugqr=965) 6.6 fL 6.5-10.5 NUCLEATED RED BLOOD CELLS (BEAKER) (test 0 /100 WBC 0-0 uhma=485) NEUTROPHILS RELATIVE PERCENT (BEAKER) (test 62 % trwo=413) LYMPHOCYTES RELATIVE PERCENT (BEAKER) (test 17 % knst=005) MONOCYTES RELATIVE PERCENT (BEAKER) (test 15 % fral=529) EOSINOPHILS RELATIVE PERCENT (BEAKER) (test 6 % qdes=615) BASOPHILS RELATIVE PERCENT (BEAKER) (test 0 % hkpw=816) NEUTROPHILS ABSOLUTE COUNT (BEAKER) (test 2.03 K/ L 1.80-8.00 vrca=493) LYMPHOCYTES ABSOLUTE COUNT (BEAKER) (test 0.57 K/ L 1.48-4.50 hrzn=554) MONOCYTES ABSOLUTE COUNT (BEAKER) (test ecyr=572) 0.48 K/ L 0.00-1.30 EOSINOPHILS ABSOLUTE COUNT (BEAKER) (test 0.19 K/ L 0.00-0.50 irxn=431) BASOPHILS ABSOLUTE COUNT (BEAKER) (test mzlo=560) 0.01 K/ L 0.00-0.20 0.00PROTHROMBIN [id number] 12:42:00 Test Item Value Reference Range Comments PROTIME (BEAKER) (test nuov=586) 27.0 seconds 11.7-14.7 INR (BEAKER) (test uvxs=433) 2.5 <=5.9 RECOMMENDED COUMADIN/WARFARIN INR THERAPY RANGESSTANDARD DOSE: 2.0 - 3.0 Includes: PROPHYLAXIS forvenous thrombosis, systemic embolization; TREATMENT for venous thrombosis and/or pulmonary embolus.HIGH RISK: Target INR is 2.5-3.5 for patients with mechanical heart valves.ALBUMIN, BODY [id number] 11:46:00 Test Item Value Reference Range Comments ALBUMIN FLUID (BEAKER) (test nvxb=547) 0.5 gm/dL Reference Range: No Normals Assay performance has not been validated for this type of specimen.PROTEIN, BODY [id number] 11:42:00 Test Item Value Reference Range Comments PROTEIN FLUID (BEAKER) (test mxwe=529) 1.3 g/dL Absence of reference range indicates that normals have not been defined.Assay performance has not been validated for this type of specimen.
--- OUTSIDE RECORDS SUMMARY | 2018-03-09 10:46 | XMS REPORT ---
:1965 Author Organization [employer] Care Team Providers Name Role Phone Carlos Payne Provider Role Unavailable Allergies No Known Allergies Problems Problem Type Condition Code Onset Dates Condition Status Problem Chronic alcohol use F10.10 Active Problem History of alcohol abuse Z87.898 Active Problem Encephalopathy, hepatic K72.90 Active Problem Thrombocytopenia D69.6 Active Assessment History of alcohol abuse Z87.898 Active Problem Orthostatic hypotension I95.1 Active Problem Hypomagnesemia E83.42 Active Problem Alcoholic cirrhosis of liver with K70.31 Active ascites Problem GERD without esophagitis K21.9 Active Problem Ascites R18.8 Active Problem Anemia, chronic disease D63.8 Active Assessment Closed fracture of one rib of left S22.32XD Active side with routine healing, subsequent encounter Assessment Thrombocytopenia D69.6 Active Assessment Orthostatic hypotension I95.1 Active Assessment Encephalopathy, hepatic K72.90 Active Assessment Anemia, chronic disease D63.8 Active Assessment Alcoholic cirrhosis of liver with K70.31 Active ascites Assessment Hypomagnesemia E83.42 Active Problem Cirrhosis of liver K74.60 Active Assessment GERD without esophagitis K21.9 Active Problem Depression with anxiety F41.8 Active Medications Medication Code Code Instructions Start End Status Dosage System Date Date Midodrine HCl [facility] 77418993470 10 MG Orally Active 1 tablet Three times a day Pantoprazole [facility] 25638448116 40 MG Orally Active 1 tablet Sodium Once a day Sodium Chloride ND 21853692457 1 GM Orally TID Active 2 tablets Ondansetron HCl ND 08228216307 4 MG Orally Active 1 tab every 8 hours as needed for Nausea and vomiting Hydrocortisone ND 23913326136 20 MG Orally AM Active 1 tablet Once a day with food or milk Ursodiol ND 25073454493 300 MG Orally Active not defined Lactulose ND 99101841580 10 GM/15ML Active 15 ml Orally TID Citalopram [facility] 85131732114 10 MG Active TAKE ONE Hydrobromide DAILY Rifaximin [facility] [address]-28 550 MG Orally Active 1 tablet Twice a day Ondansetron HCl [facility] 67635277017 4 MG Active 1 TAB EVERY 8 HOURS NEEDED FOR NAUSEA AND VOMITING ORALLY 10 DAYS Magnesium Oxide [facility] 96361227578 400 MG Orally Active 1 tablet BID as needed NuFera [facility] 13712277573 - Orally once a Active 1 tab day Hydrocortisone [facility] 07041033894 10 MG Orally PM Active 1 tablet Once a day with food or milk Results No Known Results Summary Purpose [employer] Submission
[2018-03-09] MEDS ORDERED: NA CHLORIDE 0.9% 500 ML ONE (11:12)
[2018-03-09] MEDS ORDERED: ALBUMIN HUMAN 25% 50 ML IV ONE (11:12)
--- NOTE | 2018-03-09 11:23 | RAD REPORT ---
EXAM DESCRIPTION: CT - Head Brain Wo Cont - 03/09/2018 11:15 am CLINICAL HISTORY: Syncope COMPARISON: August 2017 TECHNIQUE: Computed axial tomography of the head was obtained. IV contrast was not requested. All CT scans are performed using dose optimization technique as appropriate and may include automated exposure control or mA/KV adjustment according to patient size. FINDINGS: An intracranial bleed is not seen . The ventricles are normal in caliber. No extra-axial fluid collection is noted. Mild cerebral atrophy is present. Fluid within the sinuses/ mastoids is not seen. Coarse vascular calcifications are noted. IMPRESSION: No acute intracranial abnormality is seen. If patient's symptoms persist MRI of the bra in would be recommended.
[2018-03-09 11:27] LABS: Absolute Lymphocytes (CBC) 1.1 K/uL (0.7-4.9); Absolute Monocytes 0.9 K/uL (0.1-1.3); Absolute Neutrophil 4.8 K/uL (1.8-8.0); Basophils % 0.3 % (0-1.3); Eosinophils % 7.5 % (0-4.4); Hematocrit 29.4 % (39.6-49.0); Lymphocytes % 15.5 % (15.3-44.8); MCH 33.4 pg (27.0-35.0); MCV 97.5 fL (80-100); MPV 7.6 fL (7.6-11.3); Monocytes % 12.2 % (3.3-12.3); RBC Red Blood Cell Count 3.02 M/uL (4.33-5.43)
[2018-03-09 11:30] LABS: Protime INR 1.56
[2018-03-09 11:52] LABS: CKMB Creatine Kinase MB 0.7 ng/ml (0.3-4.0)
[2018-03-09 11:58] LABS: Albumin 3.3 g/dL (3.2-5.5); Bilirubin Direct 1.6 mg/dL (0-0.2); Bilirubin Total 3.3 mg/dL (0.3-1.2); Protein, Total 5.7 g/dL (6.0-8.3)
--- NOTE | 2018-03-09 12:19 | RAD REPORT ---
EXAM DESCRIPTION: [facility] Single View03/09/2018 11:41 am CLINICAL HISTORY: Chest pain COMPARISON: January 2018 FINDINGS: A few areas of subsegmental atelectasis are present within the left lung base. Otherwise, lungs appear clear. The heart is normal size
--- NOTE | 2018-03-09 12:27 | RAD REPORT ---
EXAM DESCRIPTION: CT - Abdomen Pelvis Wo Contrast - 03/09/2018 12:14 pm CLINICAL HISTORY: Abdominal pain COMPARISON: January 2018 TECHNIQUE: Computed axial tomography of the abdomen and pelvis was obtained. IV and oral contrast we re not requested. All CT scans are performed using dose optimization technique as appropriate and may include automated exposure control or mA/KV adjustment according to patient size. FINDINGS: The evaluation of solid organs, vessels and bowel is limited secondary to the lack of con trast administration. A cirrhotic liver is noted. Spleen, pancreas, adrenals and kidneys appear grossly normal. Multiple gallstones are seen without significant gallbladder wall thickening. An umbilical hernia is present which contains ascites. A moderate amount ascites is present within abdomen pelvis which is diminished when compared to January 2018 exam IMPRESSION: Cirrhosis Cholelithiasis without evidence cholecystitis
--- NOTE | 2018-03-09 14:16 | EDPHYS ---
Physician Documentation [facility] Name: Abhishek Davis Age: 52 yrs Sex: Male : 1965 Arrival Date: 03/09/2018 Time: 10:40 Bed 4 Private MD: ED Physician Yasir Watkins HPI: 03/09 11:21 This 52 yrs old Male presents to ER via EMS with complaints of Syncope. rn 11:21 The patient has experienced syncope. Onset: The symptoms/episode began/occurred just rn prior to arrival. Duration: This was a single episode. Context:. Current symptoms: generalized weakness. The patient has not experienced similar symptoms in the past. Patient and report syncope, had 14 L removed from abdomen, paracentesis, 3 days ago, has felt weak since then, no fever, stood up and felt lightheaded, passed out, otherwise has been feeling ok, no fever/vomiting blood/blood in stool, stopped taking lactulose for a few days because of diarrhea, but now taking it again. . Historical: - Allergies: 10:45 No Known Allergies; sv - PMHx: 10:45 Anemia; Cirrhosis; KIDNEY INSUFF; renal insufficiency; Umbilical hernia; sv - PSHx: 10:45 Hernia repair; sv - Immunization history:: Adult Immunizations up to date. - Family history:: not pertinent. - Social history:: Smoking status: Patient/guardian denies using tobacco. - Hospitalizations: : The patient was recently seen at [facility]. ROS: 11:21 Constitutional: Negative for fever, chills, and weight loss, Eyes: Negative for injury, rn pain, redness, and discharge, Neck: Negative for injury, pain, and swelling, Cardiovascular: Negative for chest pain, palpitations, and edema, Respiratory: Negative for shortness of breath, cough, wheezing, and pleuritic chest pain, Abdomen/GI: Negative for vomiting, diarrhea, and constipation, Back: Negative for injury and pain, MS/Extremity: Negative for injury and deformity, Skin: Negative for injury, rash, and discoloration, Neuro: Negative for headache, numbness, tingling, and seizure. Exam: 11:21 Constitutional: This is a well developed, well nourished patient who is awake, alert, rn and in no acute distress. Head/Face: Normocephalic, atraumatic. Eyes: + scleral icterus Neck: Trachea midline, no thyromegaly or masses palpated, and no cervical lymphadenopathy. Supple, full range of motion without nuchal rigidity, or vertebral point tenderness. No Meningismus. Cardiovascular: Regular rate and rhythm with a normal S1 and S2. No gallops, murmurs, or rubs. Normal PMI, no JVD. No pulse deficits. Respiratory: Lungs have equal breath sounds bilaterally, clear to auscultation and percussion. No rales, rhonchi or wheezes noted. No increased work of breathing, no retractions or nasal flaring. Abdomen/GI: soft, mild tenderness at site of peracentesis, no ecchymosis, no peritoneal signs MS/ Extremity: Pulses equal, no cyanosis. Neurovascular intact. Full, normal range of motion. Equal circumference. Neuro: Awake and alert, GCS 15, oriented to person, place, time, and situation. Cranial nerves II-XII grossly intact. Motor strength 5/5 in all extremities. Sensory grossly intact. Vital Signs: 10:44 BP 92 / 72; Pulse 69; Resp 16; Temp 98.2; Pulse Ox 95% ; sv 11:45 BP 98 / 75; Pulse 69; Resp 17; Pulse Ox 98% on R/A; sv 13:48 BP 107 / 80; Pulse 67 MON; Resp 18; Pulse Ox 100% on R/A; sv 13:48 Sinus Rhythm sv MDM: 03/09 10:44 Order name: Basic Metabolic Panel; Complete Time: 12:20 03/09 10:44 Order name: BNP; Complete Time: 12:03/09 10:44 Order name: CBC with Diff; Complete Time: 11:03/09 10:44 Order name: Ckmb; Complete Time: 12:20 sv 03/09 10:44 Order name: CPK; Complete Time: 12:20 03/09 10:44 Order name: LFT's; Complete Time: 12:03/09 10:43 Order name: CT Head Brain wo Cont; Complete Time: 11:03/09 10:44 Order name: Magnesium; Complete Time: 12:20 03/09 10:44 Order name: PT-INR; Complete Time: :03/09 10:44 Order name: Ptt, Activated; Complete Time: 11:40 sv 03/09 10:44 Order name: Troponin (emerg Dept Use Only); Complete Time: 13:12 sv 03/09 10:44 Order name: XRAY Chest (1 view); Complete Time: 12:21 sv 03/09 10:44 Order name: AMMONIA; Complete Time: 11:40 sv 03/09 14:03 Order name: Urine Dipstick--Ancillary (enter results) bd 03/09 10:44 Order name: EKG; Complete Time: 10:44 sv 03/09 10:44 Order name: Cardiac monitoring; Complete Time: : sv 03/09 10:44 Order name: EKG - Nurse/Tech; Complete Time: : sv 03/09 10:44 Order name: IV Saline Lock; Complete Time: : sv 03/09 10:44 Order name: Labs collected and sent; Complete Time: : sv 03/09 10:44 Order name: O2 Per Protocol; Complete Time: :03/09 10:44 Order name: O2 Sat Monitoring; Complete Time: : sv 03/09 11:42 Order name: CT Abd/Pelvis - Without Cont; Complete Time: 13:12 rn MDM: 10:51 Patient medically screened. rn 14:12 Differential Diagnosis: idiopathic syncope, vasovagal episode, dehydration. Data rn reviewed: vital signs, nurses notes, lab test result(s), EKG, radiologic studies, CT scan, plain films, and as a result, I will discharge patient. Counseling: I had a detailed discussion with the patient and/or guardian regarding: the historical points, exam findings, and any diagnostic results supporting the discharge/admit diagnosis, lab results, radiology results, the need for outpatient follow up, to return to the emergency department if symptoms worsen or persist or if there are any questions or concerns that arise at home. Response to treatment: the patient's symptoms have markedly improved after treatment, and as a result, I will discharge patient. Special discussion: I discussed with the patient/guardian in detail that at this point there is no indication for admission to the hospital. It is understood, however, that if the symptoms persist or worsen the patient needs to return immediately for re-evaluation. ED course: Pt feels better, + dehydration from large volume paracentesis, improved with volume here, ct head and abd no acute findings. Will dc home as ecg without ischemia, normal neuro exam. . ED course: Pt got up to go urinate a while ago, feels better. . 03/09 10:44 Order name: Basic Metabolic Panel; Complete Time: 12:20 sv 03/09 10:44 Order name: BNP; Complete Time: 12:20 sv 03/09 10:44 Order name: CBC with Diff; Complete Time: 11:40 sv 03/09 10:44 Order name: Ckmb; Complete Time: 12:20 sv 03/09 10:44 Order name: CPK; Complete Time: 12:20 sv 03/09 10:44 Order name: LFT's; Complete Time: 12:20 sv 03/09 10:43 Order name: CT Head Brain wo Cont; Complete Time: :40 sv 03/09 10:44 Order name: Magnesium; Complete Time: 12:20 sv 03/09 10:44 Order name: PT-INR; Complete Time: :40 03/09 10:44 Order name: Ptt, Activated; Complete Time: : sv 03/09 10:44 Order name: Troponin (emerg Dept Use Only); Complete Time: 13:12 sv 03/09 10:44 Order name: XRAY Chest (1 view); Complete Time: 12: sv 03/09 10:44 Order name: AMMONIA; Complete Time: : sv 03/09 14:03 Order name: Urine Dipstick--Ancillary (enter results) bd 03/09 10:44 Order name: EKG; Complete Time: 10:44 sv 03/09 10:44 Order name: Cardiac monitoring; Complete Time: :03/09 10:44 Order name: EKG - Nurse/Tech; Complete Time: :03/09 10:44 Order name: IV Saline Lock; Complete Time: :03/09 10:44 Order name: Labs collected and sent; Complete Time: :03/09 10:44 Order name: O2 Per Protocol; Complete Time: :03/09 10:44 Order name: O2 Sat Monitoring; Complete Time: :03/09 11:42 Order name: CT Abd/Pelvis - Without Cont; Complete Time: 13:12 rn Administered Medications: 11:15 Drug: Albumin 25 grams Volume: 100 ml; Route: IVPB; Site: right wrist; sv 11:59 Follow up: Response: No adverse reaction; IV Status: Completed infusion; IV Intake: sg 100ml 12:15 Follow up: Response: No adverse reaction; IV Status: Completed infusion; IV Intake: sv 100ml 11:15 Drug: NS 0.9% 500 ml Route: IV; Rate: bolus; Site: right wrist; sv 12:00 Follow up: Response: No adverse reaction; IV Status: Completed infusion; IV Intake: sv 500ml Point of Care Testing: Blood Glucose: 10:44 Blood Glucose: 100 mg/dL; sv Guaiac: 11:40 Stool Guaiac: Negative; Stool Hemoccult Control: Pass; sv 12:21 Stool Guaiac: Negative; Stool Hemoccult Control: Pass; rn 11:[address] June turcios Ranges: Critical Glucose Levels:Adult <50 mg/dl or >400 mg/dl <40 mg/dl or >180 mg/dl Disposition: 03/09/18 14:15 Discharged to Home. Impression: Syncope and collapse, Dehydration, Unspecified cirrhosis of liver. - Condition is Stable. - Discharge Instructions: Dehydration, Adult, Syncope. - Medication Reconciliation Form, Thank You Letter, Antibiotic Education, Prescription Opioid Use form. - Follow up: Private Physician; When: As needed; Reason: Recheck today's complaints, Re-evaluation by your physician. - Problem is new. - Symptoms have improved. Signatures: Dispatcher [employer] Sarah Abdi RN RN sv Nieto, Roman, MD MD rn Gay, Steven RN sg Corrections: (The following items were deleted from the chart) 14:46 14:15 03/09/2018 14:15 Discharged to Home. Impression: Syncope and collapse; sv Dehydration; Unspecified cirrhosis of liver. Condition is Stable. Forms are Medication Reconciliation Form, Thank You Letter, Antibiotic Education, Prescription Opioid Use. Follow up: Private Physician; When: As needed; Reason: Recheck today's complaints, Re-evaluation by your physician. Problem is new. Symptoms have improved. rn
--- NOTE | 2018-03-09 14:16 | ER ---
Nurse's Notes [facility] Name: Abhishek Davis Age: 52 yrs Sex: Male : 1965 Arrival Date: 03/09/2018 Time: 10:40 Bed 4 Private MD: Diagnosis: Syncope and collapse;Dehydration;Unspecified cirrhosis of liver Presentation: 03/09 10:30 Presenting complaint: EMS states: Pt stood up to get some water, felt dizzy and had a sv syncopal episode. c/o head, low back and bilateral hip pain. Pt attempting to get on the liver transplant list. BS-125 20G L AC, SBP on EMS arrival was 190s, en route SBP was in the 90s. Temp-98.5. Pt gets a paracentesis done every 1.5 weeks, last one was last Friday. Transition of care: patient was not received from another setting of care. Onset of symptoms was March 09, 2018. Care prior to arrival: IV initiated. 20 GA, in the left antecubital area, Glucose check: 125. 10:30 Acuity: KACEY 2 sv 10:30 Method Of Arrival: EMS: [facility] sv 10:31 Initial Sepsis Screen: Does the patient meet any 2 criteria? No. Patient's initial sv sepsis screen is negative. Does the patient have a suspected source of infection? No. Patient's initial sepsis screen is negative. Triage Assessment: 10:30 General: Appears uncomfortable, Behavior is calm, cooperative, appropriate for age. sv Pain: Complains of pain in lumbar area, left lower back and right lower back Pain does not radiate. Pain currently is 5 out of 10 on a pain scale. Quality of pain is described as tender, throbbing, Pain began 1 hour ago. Is intermittent, Aggravated by repositioning. EENT: No signs and/or symptoms were reported regarding the EENT system. Neuro: Level of Consciousness is awake, alert, obeys commands, Oriented to person, place, time, situation, Moves all extremities. Full function Speech is normal, Reports a syncopal episode Denies blurred vision dizziness, numbness photophobia. Cardiovascular: Heart tones S1 S2 present Patient's skin is warm and dry. Pulses are 3+ in right radial artery and left radial artery Rhythm is sinus rhythm. Respiratory: Airway is patent Trachea midline Respiratory effort is even, unlabored, Respiratory pattern is regular, symmetrical, Breath sounds are clear bilaterally. Denies shortness of breath. GI: Abdomen is distended, Reports he gets a paracentesis about every 1.5 weeks. Pt had it done Friday. Derm: Skin is jaundiced. Musculoskeletal: No signs and/or symptoms reported regarding the musculoskeletal system. Historical: - Allergies: 10:45 No Known Allergies; sv - PMHx: 10:45 Anemia; Cirrhosis; KIDNEY INSUFF; renal insufficiency; Umbilical hernia; sv - PSHx: 10:45 Hernia repair; sv - Immunization history:: Adult Immunizations up to date. - Family history:: not pertinent. - Social history:: Smoking status: Patient/guardian denies using tobacco. - Hospitalizations: : The patient was recently seen at [facility]. Screenin:30 Abuse screen: Denies threats or abuse. Denies injuries from another. Nutritional sv screening: No deficits noted. Tuberculosis screening: No symptoms or risk factors identified. Fall Risk No fall in past 12 months (0 pts). No secondary diagnosis (0 pts). IV access (20 points). Ambulatory Aid- None/Bed Rest/Nurse Assist (0 pts). Gait- Normal/Bed Rest/Wheelchair (0 pts) Mental Status- Oriented to own ability (0 pts). Total Ty Fall Scale indicates No Risk (0-24 pts). Assessment: 10:30 Reassessment: See triage assessment. sv 11:15 Reassessment: Patient appears in no apparent distress at this time. No changes from sv previously documented assessment. Patient and/or family updated on plan of care and expected duration. Pain level reassessed. Patient is alert, oriented x 3, equal unlabored respirations, skin warm/dry/pink. 12:40 Reassessment: Patient appears in no apparent distress at this time. No changes from sv previously documented assessment. Patient and/or family updated on plan of care and expected duration. Pain level reassessed. Patient is alert, oriented x 3, equal unlabored respirations, skin warm/dry/pink. 14:45 Reassessment: Patient appears in no apparent distress at this time. No changes from sv previously documented assessment. Patient and/or family updated on plan of care and expected duration. Pain level reassessed. Patient is alert, oriented x 3, equal unlabored respirations, skin warm/dry/pink. Vital Signs: 10:44 BP 92 / 72; Pulse 69; Resp 16; Temp 98.2; Pulse Ox 95% ; sv 11:45 BP 98 / 75; Pulse 69; Resp 17; Pulse Ox 98% on R/A; sv 13:48 BP 107 / 80; Pulse 67 MON; Resp 18; Pulse Ox 100% on R/A; sv 13:48 Sinus Rhythm sv ED Course: 10:30 Maintain EMS IV. Dressing intact. Site clean \T\ dry. Gauge \T\ site: 20G L AC. sv 10:30 Arm band placed on right wrist. sv 10:30 Patient has correct armband on for positive identification. Placed in gown. Bed in low sv position. Side rails up X2. vehicle monitor technician on. Pulse ox on. NIBP on. Door closed. Warm blanket given. Pillow given. Head of bed elevated. 10:35 Initial lab(s) drawn, by ED staff, sent to lab. Inserted saline lock: 20 gauge in right sv wrist, using aseptic technique. ,using aseptic technique. done by Andrew NÚÑEZ Blood collected. 10:40 Patient arrived in ED. sv 10:41 Sarah Singh RN is Primary Nurse. sv 10:43 Triage completed. sv 10:50 EKG done, by arch support technician. reviewed by Yasir Watkins MD. sm3 10:51 Yasir Watkins MD is Attending Physician. rn 11:02 Radiology exam delayed due to was with pt at this time. kw1 11:[address] via stretcher. sv 11:14 CT completed. Patient tolerated procedure well. Patient moved back from CT. kw1 11:15 CT Head Brain wo Cont In Process Unspecified. EDMS 11:38 X-ray completed. Portable x-ray completed in exam room. Patient tolerated procedure mh1 well. 11:42 XRAY Chest (1 view) In Process Unspecified. EDMS 12:14 CT Abd/Pelvis - Without Cont In Process Unspecified. EDMS 14:46 No provider procedures requiring assistance completed. IV discontinued, intact, sv bleeding controlled, No redness/swelling at site. Pressure dressing applied. Administered Medications: 11:15 Drug: Albumin 25 grams Volume: 100 ml; Route: IVPB; Site: right wrist; sv 11:59 Follow up: Response: No adverse reaction; IV Status: Completed infusion; IV Intake: sg 100ml 12:15 Follow up: Response: No adverse reaction; IV Status: Completed infusion; IV Intake: sv 100ml 11:15 Drug: NS 0.9% 500 ml Route: IV; Rate: bolus; Site: right wrist; sv 12:00 Follow up: Response: No adverse reaction; IV Status: Completed infusion; IV Intake: sv 500ml Point of Care Testing: Blood Glucose: 10:44 Blood Glucose: 100 mg/dL; sv Guaiac: 11:40 Stool Guaiac: Negative; Stool Hemoccult Control: Pass; sv 12:21 Stool Guaiac: Negative; Stool Hemoccult Control: Pass; rn 11:[address] Watkins sv Ranges: Intake: 11:59 IV: 100ml; Total: 100ml. sg 12:00 IV: 500ml; Total: 600ml. sv 12:15 IV: 100ml; Total: 700ml. sv Output: 13:46 Urine: 200ml (Voided); Total: 200ml. sv Outcome: 14:15 Discharge ordered by MD. rn 14:46 Discharged to home via wheelchair, with family. sv 14:46 Condition: stable 14:46 Condition: improved 14:46 Discharge instructions given to patient, family, Instructed on discharge instructions, follow up and referral plans. Demonstrated understanding of instructions, follow-up care. 14:46 Patient left the ED. sv Signatures: Dispatcher [employer] Sarah Abdi RN RN sv Gay, Steven, RN RN sg Harvey, Martha 1 Yasir Watkins MD MD rn Wilhelm, Kimberly kw1 Katlyn Ordonez 3 Corrections: (The following items were deleted from the chart) 11:02 10:55 Patient moved to [place] via wheelchair. kw1 kw1
[2018-03-09 14:19] LABS: Urine Blood NEGATIVE (NEG); Urine Glucose NEGATIVE (NEG); Urine Protein NEGATIVE (NEG)
--- NOTE | 2018-03-09 14:40 | EKG ---
Test Date: 2018-03-09 Test Time: 10:50:41 Buckle Frame Shaper: PETE MEASUREMENT RESULTS: Intervals: Rate: 68 NH: 170 QRSD: 96 QT: 408 QTc: 433 [place]: P: 39 NH: 170 QRS: -5 T: 17 INTERPRETIVE STATEMENTS: Normal sinus rhythm normal ECG Compared to ECG 02/13/2018 23:34:32 Prolonged QT interval no longer present Electronically Signed On 03-09-18 14:39:50 CDT by Ghanshyam Young
[2018-03-09 15:06] VITALS: TEMP 98.2
[2018-03-09 15:08] VITALS: BP 107/80; O2SAT 100
== END 2018-03-09 14:46 | disposition home or self-care (01) ==
LOC: ER 10:37
DX: E86.0 Dehydration (principal); K74.60 Unspecified cirrhosis of liver
CPT/HCPCS: 36415; 70450; 71045; 74176; 80048; 80076; 81003; 82140; 82550; 82553; 83735; 83880; 84484; 85025; 85610; 85730; 93005; 96361; 96365; 99285; P9047

== ENCOUNTER 2018-04-30 19:44 | Emergency (ER) | payer MEDICAID ==
--- OUTSIDE RECORDS SUMMARY | 2018-04-30 19:47 | XMS REPORT | Clinical Summary ---
:1965 Author Organization [facility] Address [address] [place] [address] Phone Care Team Providers Name Role Phone Unavailable Primary Care Provider Unavailable Allergies No Known Allergies Current Medications Prescription Sig. Disp. Refills Start Date End Date Status citalopram (CELEXA) Take 10 mg by Active 10 MG mouth daily. tabletIndications: Alcoholic cirrhosis of liver with ascites (HCC) furosemide (LASIX) Take 1 tablet 30 tablet 3 02/03/2018 02/04/20 Active 40 MG (40 mg total) 19 tabletIndications: by mouth daily. Alcoholic cirrhosis of liver with ascites (HCC), Portal hypertensive gastropathy (HCC) magnesium oxide Take 400 mg by Active (MAG-OX) 400 mg mouth 2 (two) tablet times daily. dcrcuqes-nrep-fkh-fo Take by mouth. Active lic acid (OVRQXATFTHKO-LLRU-J INERALS-FOLIC ACID) 3,500-18-0.4 unit-mg-mg Chew diphenhydrAMINE Take 25 mg by Active (BENADRYL) 25 mg mouth nightly. tablet ondansetron (ZOFRAN) Take 4 mg by Active 4 MG tablet mouth 2 (two) times daily as needed for Nausea. MOVIPREP USE DIRECTED 1 packet 0 04/07/2018 Active 100-7.5-2.691 gram PwPk packetIndications: Screen for colon cancer rifAXIMin 550 mg Tab Take 550 mg by Active mouth 2 (two) times daily. lactulose Take 30 ml 2200 mL 3 04/06/2018 Active (CHRONULAC) 10 three times a gram/15 mL day to solutionIndications: accomplish 2-3 Hepatic bowel movements encephalopathy (HCC) daily.. ursodiol (ACTIGALL) Take 1 capsule 60 capsule 0 04/17/2018 Active 300 mg (300 mg total) capsuleIndications: by mouth 2 Alcoholic cirrhosis (two) times of liver with daily. ascites (HCC) midodrine Take 2 tablets 120 tablet 0 04/17/2018 Active (PROAMATINE) 5 MG (10 mg total) tabletIndications: by mouth 2 Hypotension, (two) times unspecified daily. hypotension type, Alcoholic cirrhosis of liver with ascites (HCC) multivitamin Take 1 tablet 90 tablet 3 02/18/2017 02/19/20 (THERAGRAN) tablet by mouth daily. 18 folic acid (FOLVITE) Take 1 tablet 90 tablet 3 02/18/2017 02/19/20 1 MG tablet (1 mg total) by 18 mouth daily. furosemide (LASIX) Take 1 tablet 30 tablet 2 02/18/2017 01/06/20 Discontinued 20 MG tablet (20 mg total) 18 by mouth daily. lactulose Take 20 g by 01/09/20 Discontinued (CHRONULAC) 20 mouth 3 (three) 18 gram/30 mL times daily. solutionIndications: Alcoholic cirrhosis of liver with ascites (HCC) pantoprazole Take 40 mg by 01/09/20 Discontinued (PROTONIX) 40 MG mouth daily. 18 tabletIndications: Alcoholic cirrhosis of liver with ascites (HCC) spironolactone Take 50 mg by 01/06/20 Discontinued (ALDACTONE) 50 MG mouth 2 (two) 18 tabletIndications: times daily. Alcoholic cirrhosis of liver with ascites (HCC) ciprofloxacin HCl Take 1 tablet 4 tablet 0 09/05/2017 10/03/20 (CIPRO) 500 MG (500 mg total) 17 tablet by mouth once a week for 28 days. furosemide (LASIX) Take 1 tablet 30 tablet 0 09/06/2017 01/06/20 Discontinued 20 MG tablet (20 mg total) 18 by mouth daily. lactulose Take 30 mLs (20 3000 mL 0 09/05/2017 02/04/20 Discontinued (CHRONULAC) 20 g total) by 18 gram/30 mL solution mouth 3 (three) times daily. spironolactone Take 1 tablet 30 tablet 0 09/05/2017 01/06/20 Discontinued (ALDACTONE) 50 MG (50 mg total) 18 tablet by mouth 2 (two) times daily. midodrine Take 1 tablet 90 tablet 1 01/06/2018 02/06/20 (PROAMATINE) 5 MG (5 mg total) by 18 tablet mouth 3 (three) times daily for 30 days. hydrOXYzine (ATARAX) Take 1 tablet 30 tablet 0 01/06/2018 01/17/20 10 MG tablet (10 mg total) 18 by mouth 4 (four) times daily as needed for Itching for up to 10 days. hydrocortisone Take 1 tablet 30 tablet 1 01/06/2018 02/06/20 (CORTEF) 20 MG (20 mg total) 18 tablet by mouth daily for 30 days. hydrocortisone Take 1 tablet 30 tablet 1 01/06/2018 02/06/20 (CORTEF) 10 MG (10 mg total) 18 tablet by mouth nightly for 30 days. lactulose Take 30 mLs (20 2700 mL 1 01/06/2018 02/04/20 Discontinued (CHRONULAC) 20 g total) by 18 gram/30 mL solution mouth 3 (three) times daily for 30 days. ursodiol (ACTIGALL) Take 300 mg by 01/07/20 Discontinued 300 mg capsule mouth 3 (three) 18 times daily. ursodiol (ACTIGALL) Take 1 capsule 90 capsule 1 01/06/2018 02/06/20 300 mg capsule (300 mg total) 18 by mouth 3 (three) times daily for 30 days. lactulose Take 30 mLs (20 300 mL 1 01/08/2018 02/04/20 Discontinued (CHRONULAC) 20 g total) by 18 gram/30 mL mouth 3 (three) solutionIndications: times daily. Alcoholic cirrhosis of liver with ascites (HCC) pantoprazole Take 1 tablet 30 tablet 1 01/08/2018 02/08/20 (PROTONIX) 40 MG (40 mg total) 18 tabletIndications: by mouth daily Alcoholic cirrhosis for 30 days. of liver with ascites (HCC) ursodiol (ACTIGALL) Take 300 mg by 04/17/20 Discontinued 300 mg capsule mouth 2 (two) 18 times daily . lactulose (CEPHULAC) Take 10 g by 04/06/20 Discontinued 10 gram packet mouth 3 (three) 18 times daily. midodrine Take 10 mg by 04/17/20 Discontinued (PROAMATINE) 5 MG mouth 2 (two) 18 tablet times daily . PEG Use as 1 packet 0 03/13/2018 03/22/20 Discontinued [id number] directed. 18 tamin C (MOVIPREP) 100-7.5-2.691 gram PwPk packetIndications: Screen for colon cancer Active Problems Problem Noted Date Risk for [...] Encounters Date Type Specialty Care Team Description Orders Only Transplant Hepatology Ade Arriaga Alcoholic cirrhosis 8 C, RN of liver with ascites (HCC) Hospital Encounter Radiology Suraj, Rise Encounter for 8 MD Clau pre-transplant evaluation for liver transplant;Screening for malignant neoplasm Follow-Up Transplant Hepatology Woody Malave Vomiting and diarrhea 8 MD Noman (Primary Dx);Pruritus Telephone Transplant Hepatology Gema Hong, ONELIA albumin 100 gm 8 RN Orders Only Transplant Hepatology Ade Arriaga Alcoholic cirrhosis 8 C, RN of liver with ascites (HCC) Telephone Transplant Hepatology Meggan Erickson Appointment 8 E (Scheduled 06/02 followup appt w/spouse. Itinerary mailed.) UNOS Charge Visit Transplant Hepatology Karina Benton, 8 Provider, Unos Registry Generic Telephone Transplant Hepatology Meggan Erickson Appointment ( LVM. 8 E Calling to confirm 04/28 appts w/pt.) Telephone Transplant Hepatology Luis Manuel Arriagain Follow-up 8 C, RN Abstract Transplant Hepatology Luis Manuel Arriagain 8 C, RN Orders Only Transplant Hepatology Luis Manuel Arriagain Alcoholic cirrhosis 8 C, RN of liver with ascites (HCC) Telephone Transplant Hepatology Luis Manuel Arriagain Labs Only 8 C, RN Orders Only Transplant Hepatology Corina Ade Alcoholic cirrhosis 8 C, RN of liver with ascites (HCC) (Primary Dx) Orders Only Transplant Hepatology Ade Arriaga Alcoholic cirrhosis 8 C, RN of liver with ascites (HCC) (Primary Dx);Acute kidney injury (HCC);Chronic liver failure with hepatic coma (HCC);POLLY (acute kidney injury) (HCC);Pancytopenia (HCC) Telephone Transplant Hepatology Ade Arriaga Labs Only 8 C, RN Telephone Transplant Hepatology Luis Manuel Arriagain Follow-up 8 C, RN Orders Only Transplant Hepatology Ade Arriaga Hypotension, 8 C, RN unspecified hypotension type (Primary Dx);Alcoholic cirrhosis of liver with ascites (HCC) Telephone Transplant Hepatology Meggan Erickson Appointment 8 E (Scheduled 04/28 clinic & mri appt w/pt. Itinerary mailed.) Orders Only Transplant Hepatology Luis Manuel Arriagain Hepatic 8 C, RN encephalopathy (HCC) (Primary Dx) Telephone Transplant Hepatology Luis Manuel Arriagain Follow-up 8 C, RN Telephone Transplant Hepatology Luis Manuel Arriagain Follow-up 8 C, RN Telephone Transplant Hepatology Luis Manuel Arriagain fax PET CT chest and 8 C, RN pulmonary fx tests to dr. Spann Hospital Encounter Radiology Woody Malave Abnormal CT scan, 8 MD Noman chest Hospital Encounter Gastroenterology Michael Davison, 8 Procedure Pass Gastroenterology 8 Surgery Gastroenterology Michael Davison, COLONOSCOPY 8 Hospital Encounter Pre-Admission Testing Michael Davison 8 MD Anesthesia Event Gastroenterology Artem Chavarria MD Refill Hepatology Michael Davison, Screen for colon 8 MD cancer Telephone Transplant Hepatology Meggan Erickson Appointment ( LVM. 8 E Calling to schedule linnea clinic and possible MRI (Check w/Ade).) Telephone Transplant HepatMeggan Garrett Appointment 8 E (Scheduled 03/[address] w/spouse. Itinerary mailed.) Telephone Transplant Hepatology Meggan Erickson Appointment ( LVM. 8 E Calling to schedule PET scan) Telephone Hepatology Selin Chambers, Appointment 8 RN (colonoscopy) Documentation Transplant HepatMeggan Garrett 8 E Orders Only Hepatology Selin Chambers, Screen for colon 8 RN cancer (Primary Dx) Telephone Hepatology Heena Garrido Procedure 8 (Colonoscopy) Telephone Transplant HepatMeggan Garrett Appointment 8 E (Rescheduled NM CTchest w/spouse. New dos 03/13. ) Telephone Transplant Hepatology Meggan Erickson Appointment 8 E (Scheduled 03/[address] scan w/pts spouse. Itinerary mailed.) Telephone Transplant Hepatology Ade Arriaga Follow-up 8 CNIYA Orders Only Transplant HepatAde Tam Abnormal CT scan , 8 C RN chest (Primary Dx) Hospital Encounter Respiratory Therapy Woody Malave Abnormal CT scan, 8 MD Noman chest Follow-Up Transplant Hepatology Michael Davison, Alcoholic cirrhosis 8 of liver with ascites Woody Malave (HCC) (Primary MD Noman Dx);Risk for falls;Pre-transplant evaluation for liver transplant Telephone Transplant HepatMeggan Garrett Appointment ( LVM. 8 E Calling to confirm 03/03 clinic appt.) Telephone Transplant Hepatology Meggan Erickson Appointment 8 E (Confirmed 03/03 clinic appt w/spouse (pt will arrive at 10:30) also scheduled 2 pm pft on that day. Itinerary mailed. ) Telephone Central Scheduling Meggan Erickson 8 E Orders Only Transplant Hepatology Ade Arriaga Abnormal CT scan , 8 NIYA Seals chest (Primary Dx) Hospital Encounter Rinku, Abnormal CT scan, 8 MD Tom chest Procedure Pass 8 Surgery Rinku, R & L CATH / CORONARY 8 MD Tom ANGIOS (+/- LV) Orders Only Transplant Hepatology Ade Arriaga Encounter for 8 Bzoena RN pre-transplant evaluation for liver transplant (Primary Dx);Abnormal CT scan, chest;Screening for malignant neoplasm Telephone Transplant HepatAde Tam Follow-up 8 Bozena RN Telephone Transplant Hepatology Meggan Erickson Appointment ( LVM. 8 E Calling to confirm 03/03 clinic appt w/pt.) Follow-Up Transplant Hepatology Kasi Franklin Itching (Primary 8 MD Gavi Dx);Abnormal CT scan, Jalal, Prasun chest;Acute kidney MD Noman injury (HCC);Alcoholic cirrhosis of liver with ascites (HCC);Other ascites;Portal hypertensive gastropathy (HCC);Sarcopenia Telephone Transplant Hepatology Meggan Erickson Appointment ( LVM. 8 E Calling too confirm 02/03 clinic appt.) Abstract Transplant Hepatology Mohini Nair R 8 Documentation Transplant Hepatology Ade Arriaga 8 C RN Telephone Transplant Hepatology Meggan Erickson Appointment ( LVM. 8 E Calling to confirm 02/03 clinic appt. Itinerary mailed.) Telephone Transplant Hepatology Meggan Erickson 8 E Procedure Pass Gastroenterology 8 Surgery Gastroenterology Jarred Kumari, UPPER ENDOSCOPY 8 Anesthesia Event Gastroenterology Balbir Siegel 8 SHIV Gardner Procedure Pass 8 Documentation Transplant Hepatology Mohini Nair R 8 Documentation Transplant Hepatology Mohini Nair R 8 Orders Only General Internal 8 Medicine Abstract Transplant Hepatology Karina Benton 8 Hospital Encounter General Internal Brann, Alcoholic cirrhosis 8 - Medicine Jerad of liver with ascites MD Ghanshyam (HCC) [...] 7 [facility] Encounter General Internal Ayla Ramu Acute kidney injury 7 - Medicine MD Jj (HCC);Ascites due to Lacie Calderon alcoholic cirrhosis 7 MD Rea (HCC);Other Martha, Yashash ascites;Symptomatic D anemia;Tachycardia;Al coholic cirrhosis of liver with ascites (HCC) Abstract Transplant Hepatology Ade Arriaga, RN Documentation Transplant Hepatology Ade Arriaga, RN Abstract Transplant Hepatology Ade Arriaga, RN Telephone Hepatology Bree Dejesus call 7 AFSHIN [facility] Office Visit Hepatology Kasi Franklin Alcoholic cirrhosis 7 MD Gavi of liver with ascites Suraj, Rise (HCC) (Primary J, Dx);Other ascites;History of alcohol use;Esophageal varices without bleeding, unspecified esophageal varices type (HCC);Screening for malignant neoplasm;Hyponatremia Abstract Transplant Hepatology Karina Benton 7 MD Telephone Hepatology Brigitte Man Appointment 7 after 04/29/2017 Immunizations Name Dates Previously Given Next Due Hepatitis B Dialysis Or Immunosupressed 3-Dose IM 01/02/2018 Family History Medical History Relation Name Comments Diabetes Father Relation Name Status Comments Father Social History Tobacco Use Types Packs/Day Years Used Date Former Smoker Smokeless Tobacco: Never Used Comments: January 2015 Alcohol Use Drinks/Week oz/Week Comments No quit January 2015 Sex Assigned at Date Recorded Not on file Last Filed Vital Signs Vital Sign Reading Time Taken Blood Pressure 97/66 04/28/2018 11:17 AM CDT Pulse 86 04/28/2018 11:17 AM CDT Temperature 37 C (98.6 F) 04/28/2018 11:17 AM CDT Respiratory Rate 16 04/28/2018 11:17 AM CDT Oxygen Saturation 96% 04/28/2018 11:17 AM CDT Inhaled Oxygen Concentration - - Weight 73.9 kg (163 lb) 04/28/2018 11:17 AM CDT Height 182.9 cm (6' 0.01") 04/28/2018 11:17 AM CDT Body Mass Index 22.1 04/28/2018 11:17 AM CDT Plan of Treatment Date Type Specialty Care Team Description 06/02/2018 Follow-Up Transplant Hepatology Health Maintenance Due Date Last Done Comments INFLUENZA VACCINE 07/27/2018 Procedures Procedure Name Priority Date/Time Associated Diagnosis Comments COLONOSCOPY 03/25/2018 2:00 PM Pre-transplant CDT evaluation for liver transplant R & L CATH / CORONARY 02/23/2018 10:26 AM Encounter for ANGIOS (+/- LV) CDT pre-transplant evaluation for liver transplant Case Notes (2) POP6 POSSIBLE PCI COLONOSCOPY 01/02/2018 9:00 AM 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 Other iron deficiency anemia UPPER ENDOSCOPY 01/02/2018 9:00 AM 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 Other iron deficiency anemia after 04/29/2017 Results POC-Creatinine (04/28/2018 1:54 PM) Component Value Ref Range POC-Creatinine 2.0 (H)Comment: TESTED AT [facility] [address] [facility] 0.6 - 1.3 mg/[place] [address] POC-EGFR 35 mL/min/1.73M2 Specimen Performing Laboratory Blood [facility] [address] [address] VASCULAR DIAGRAM -SCAN (04/23/2018 11:40 AM)Only the most recent of2 resultswithin the time period is included.NM PET/CT Limited Area Initial (2017 4:44 PM) Specimen Performing Laboratory GE RIS Narrative FINAL REPORT EXAMINATION: FDG-PET/CT, 03/30/2018 2:00 PM CLINICAL HISTORY: Indeterminate right lower lobe pulmonary nodule. INDICATION: Evaluate for malignancy.FDG-PET/CT is obtained for initial treatment evaluation. COMPARISON: Prior scans, most recently Chest CT 12/31/2017. TECHNIQUE: Radiopharmaceutical: F-18 Fluorodeoxyglucose Administered activity: 10.5] mCi Route of administration: Intravenously via the right antecubital vein Localization time: 66 minutes Scan extent: Skull base to the proximal thighs Additional imaging: None Serum blood glucose: 119 CPT Code: 10864 FINDINGS: Head and Neck: There is no trisha hypermetabolism along the cervical chains. Tracer uptake in the head and neck mucosa is normal and symmetric. Chest: The elongated pulmonary nodule in the right lower lobe along the fissure exhibits only background-level radiotracer activity on PET scanning (SUV <0.9). Additional scattered linear opacities also show minimal activity, consistent with scarring and atelectasis. There are no hypermetabolic pulmonary nodules, and there is no trisha hypermetabolism in the chest. Note is made of bilateral gynecomastia. There are scattered coronary arterial calcifications. Abdomen and Pelvis: CT images again show evidence of cirrhosis with a large amount of intra-abdominal ascites. Tracer uptake in the hepatic parenchyma is heterogeneous, but no dominant foci of hypermetabolism are seen in the liver. There are numerous calcified gallstones. Renal contours are normal. There is faint density in the region of the renal pyramids suggesting calcinosis. There is an umbilical-region hernia with extension of ascites through the defect. Musculoskeletal: There are foci of intermediate-grade radiotracer activity localizing to the ribs along the costochondral margins bilaterally, with evidence of cortical irregularity on CT. These are consistent with sites of healing trauma and fracture. No suspicious sites of osseous hypermetabolism are seen. IMPRESSION: 1. The right lower lobe pulmonary nodule seen on the recent CT examination shows only background-level radiotracer activity, favoring a benign etiology. 2. Additional CT findings in the abdomen, including cirrhosis and ascites, as documented on prior scans. Signed: Ingrid Hung MD Report Verified Date/Time:03/31/2018 08:25:09 Procedure Note Interface, External Ris In - 03/31/2018 8:27 AM CDT FINAL REPORT EXAMINATION: FDG-PET/CT, 03/30/2018 2:00 PM CLINICAL HISTORY: Indeterminate right lower lobe pulmonary nodule. INDICATION: Evaluate for malignancy. FDG-PET/CT is obtained for initial treatment evaluation. COMPARISON: Prior scans, most recently Chest CT 12/31/2017. TECHNIQUE: Radiopharmaceutical: F-18 Fluorodeoxyglucose Administered activity: 10.5] mCi Route of administration: Intravenously via the right antecubital vein Localization time: 66 minutes Scan extent: Skull base to the proximal thighs Additional imaging: None Serum blood glucose: 119 CPT Code: 25198 FINDINGS: Head and Neck: There is no trisha hypermetabolism along the cervical chains. Tracer uptake in the head and neck mucosa is normal and symmetric. Chest: The elongated pulmonary nodule in the right lower lobe along the fissure exhibits only background-level radiotracer activity on PET scanning (SUV <0.9). Additional scattered linear opacities also show minimal activity, consistent with scarring and atelectasis. There are no hypermetabolic pulmonary nodules, and there is no trisha hypermetabolism in the chest. Note is made of bilateral gynecomastia. There are scattered coronary arterial calcifications. Abdomen and Pelvis: CT images again show evidence of cirrhosis with a large amount of intra-abdominal ascites. Tracer uptake in the hepatic parenchyma is heterogeneous, but no dominant foci of hypermetabolism are seen in the liver. There are numerous calcified gallstones. Renal contours are normal. There is faint density in the region of the renal pyramids suggesting calcinosis. There is an umbilical-region hernia with extension of ascites through the defect. Musculoskeletal: There are foci of intermediate-grade radiotracer activity localizing to the ribs along the costochondral margins bilaterally, with evidence of cortical irregularity on CT. These are consistent with sites of healing trauma and fracture. No suspicious sites of osseous hypermetabolism are seen. IMPRESSION: 1. The right lower lobe pulmonary nodule seen on the recent CT examination shows only background-level radiotracer activity, favoring a benign etiology. 2. Additional CT findings in the abdomen, including cirrhosis and ascites, as documented on prior scans. Signed: Ingrid Hung MD Report Verified Date/Time: 03/31/2018 08:25:09 -Glucose meter (03/30/2018 2:53 PM) Component Value Ref Range POC-Glucose Meter 119 (H)Comment: TESTED AT [address] 70 - 110 mg/[place] [address] Specimen Performing Laboratory Blood [facility] [address] [address] REPORT OF PROCEDURE - ENDOSCOPY URL (03/25/2018 2:49 PM)Only the most recent of3 resultswithin the time period is included.PULMONARY FUNCTION - SCAN (2017 10:13 AM)Pulmonary Funct Lab Spirometry (03/03/2018 2:56 PM) Narrative Candido Alejandra RRT, COMMERCIAL DRAFTER 03/03/20182:56 PM [facility] PFT CHARTING REPORT Infection Control/Hand Hygiene procedures followed throughout the encounter with patient: Yes Patient Identification Method: Patient name verified on armband, and Medical record on armband, Is the order complete?: Yes Account ID#: [id number] Patient Name: Abhishek Arrieta Birthdate: 1965 Age: [...] released from the lab without adverse outcome. Drug screen, urine, transplant (03/03/2018 1:11 PM)Only the most recent of3 resultswithin the time period is included. Specimen Performing Laboratory Urine [facility] [address] [facility] [place] [address] CBC with platelet count + automated diff [...] 1 % Specimen Performing Laboratory Blood [facility] [address] [address] Prothrombin time/INR (03/03/2018 1:06 PM)Only the most recent of13 resultswithin the time period is included. Component Value Ref Range Protime 19.0 (H) 11.7 - 14.7 seconds INR 1.6 <=5.9 Specimen Performing Laboratory Blood [address] [address] Narrative RECOMMENDED COUMADIN/WARFARIN INR THERAPY RANGES STANDARD DOSE: 2.0 - 3.0 Includes: PROPHYLAXIS for venous thrombosis, systemic embolization; TREATMENT for venous thrombosis and/or pulmonary embolus. HIGH RISK: Target INR is 2.5-3.5 for patients with mechanical heart valves. CBC with platelet count + automated diff (03/03/2018 1:06 PM)Only the most recent of17 resultswithin the time period is included. Specimen Performing Laboratory Blood [facility] ([facility]) Narrative The following orders were created for panel order CBC with platelet count + automated diff. Procedure Abnormality Status --------- ------ CBC with platelet count ...[[id number]]AbnormalFinal result Please view results for these tests on the individual orders. Bilirubin, direct (03/03/2018 1:06 PM)Only the most recent of3 resultswithin the time period is included. Component Value Ref Range Bilirubin, Direct 2.8 (H) 0.1 - 0.5 mg/dL Specimen Performing Laboratory Blood [address] [address] Comprehensive metabolic panel (03/03/2018 1:06 PM)Only the [...] DIALYSIS PATIENTS. Specimen Performing Laboratory Blood [facility] [address] [address] Narrative Specimen slightly icteric CARDIAC CATH REPORT - SCAN (02/24/2018 8:50 PM)ECG 12 lead (02/23/2018 8:36 AM )Only the most recent of2 resultswithin the time period is included. Specimen Performing Laboratory GE MUSE Narrative Ventricular Rate 81 BPM Atrial Rate 81 BPM P-R Interval 172 ms QRS Duration 92 ms Q-T Interval 386 ms QTC Calculation(Bazett) 448 ms P [place]red[place] 63 degrees R [place]red[place] 8 degrees T [place] 48 degrees Normal sinus rhythm Normal ECG [...] 386 ms QTC Calculation(Bazett) 448 ms P [place] 63 degrees R [place]red[place] 8 degrees T [place] 48 degrees Normal sinus rhythm Normal ECG [...] 0 /100 WBC Specimen Performing Laboratory Blood [address] [address] Basic metabolic panel (02/23/2018 8:00 AM)Only the [...] FOR DIALYSIS PATIENTS. Specimen Performing Laboratory Blood [address] [address] Narrative Specimen slightly icteric EKG-SCANNED (01/08/2018 10:12 [...] MD Report Verified Date/Time:01/06/2018 11:15:08 Reading Location: [facility] Radiology Reading Room Procedure Note Interface, [...] Report Verified Date/Time: 01/06/2018 11:15:08 Reading Location: [facility] Radiology Reading Room knee complete 4 [...] MD Report Verified Date/Time:01/06/2018 11:15:08 Reading Location: [facility] Radiology Reading Room Procedure Note Interface, [...] Report Verified Date/Time: 01/06/2018 11:15:08 Reading Location: [facility] Radiology Reading Room Calcium, Ionized (01/06/2018 5:16 AM)Only the most recent of5 resultswithin the time period is included. Component Value Ref Range Calcium, Ion 1.11 (L) 1.12 - 1.27 mmol/L pH, Blood 7.53 Specimen Performing Laboratory Blood - Arm, [address] [address] Phosphorus (01/06/2018 5:16 AM)Only the most recent of6 resultswithin the time period is included. Component Value Ref Range Phosphorus 3.6 2.3 - 4.7 mg/dL Specimen Performing Laboratory Blood - Arm, [address] [address] Magnesium (01/06/2018 5:16 AM)Only the most recent of7 resultswithin the time period is included. Component Value Ref Range Magnesium 2.0 1.6 - 2.6 mg/dL Specimen Performing Laboratory Blood - Arm, [address] [address] Cortisol, 60 minutes (01/05/2018 10:14 PM) Component Value Ref Range Cortisol, Baseline 4.8 mcg/dL Cortisol 30 minute 9.2 mcg/dL Cortisol, 60 Minute 12.6 ug/dL Specimen Performing Laboratory Blood - Arm, [address] [address] Narrative ACTH STIMULATION TEST INTERPRETATION GUIDELINES (Synonyms: [...] study by Mindy et al ( NEVAEH 2000,[id number]), the ACTH Stimulation Test provides important prognostic [...] ug/dL Specimen Performing Laboratory Blood - Arm, [facility] [address] [place] [address], [place] [address] Narrative ACTH STIMULATION TEST INTERPRETATION GUIDELINES (Synonyms: [...] Performing Laboratory Blood - Arm, Left [facility] [address] [place] [address], [place] [address] Narrative ACTH STIMULATION TEST INTERPRETATION GUIDELINES (Synonyms: [...] stimulation. Procedure Abnormality Status --------- ------ Cortisol, baseline[[id number]] Final result Cortisol, 30 minutes[[id number]] Final result Cortisol, 60 minutes[[id number]] Final result Please view results for these tests on the individual orders. ACTH (01/05/2018 9:12 PM) Component Value Ref Range ACTH 10 6 - 50 pg/mL Comment: Reference range applies only to the specimens collected between 7am-10am. Specimen Performing Laboratory Blood - Arm, Left [facility] [address] [address] Narrative Performing Lab [facility] [address] [address] Clau Avila MD, PhD US paracentesis (01/05/2018 [...] was administered. Using ultrasound guidance, a 5 Lao one-step catheter was advanced percutaneously into the [...] MD Report Verified Date/Time:01/05/2018 17:54:16 Reading Location: [address] Ultrasound Reading Room Procedure Note Interface, External Ris In - 01/05/2018 5:56 PM CDT FINAL REPORT History: Ascites. PROCEDURE: Following informed written consent, the patient's right lower quadrant was prepped and draped in the usual sterile manner. 2% lidocaine was given locally for anesthesia. No conscious sedation was administered. Using ultrasound guidance, a 5 Lao one-step catheter was advanced percutaneously into the [...] Report Verified Date/Time: 01/05/2018 17:54:16 Reading Location: [address] Ultrasound Reading Room Manual Differential (01/05/2018 6:10 AM)Only the most recent of6 resultswithin the time period is included. Component Value Ref Range Total Counted WBC Morphology Normal Platelet Morphology Normal Anisocytosis 1+ few Specimen Performing Laboratory Blood - Arm, [address] [address] Cortisol (01/05/2018 6:10 AM) Component Value Ref Range Cortisol, Total 2.7 (L) 3.7 - 19.4 ug/dL Specimen Performing Laboratory Blood - Arm, Left [facility] [address] [address] Electrolytes (01/04/2018 4:46 PM) Component Value Ref Range Sodium 129 (L) 136 - 145 meq/L Potassium 5.5 (H) 3.5 - 5.1 meq/L Chloride 101 98 - 107 meq/L CO2 26 22 - 29 meq/L Specimen Performing Laboratory Blood [address] [address] Narrative Call [phone] with results TRANSFUSION SERVICE REPORT - SCAN (01/03/2018 5:53 PM)Only the most recent of6 resultswithin the time period is included.Vitamin B12 and Folate (01/03/2018 2: 57 PM) Component Value Ref Range Vitamin B12 829 (H) 213 - 816 pg/mL Folate 18.9 >=7.0 ng/mL Specimen Performing Laboratory Blood - Arm, [address] [address] Prepare Leuko-Red RBC (01/02/2018 11:55 PM)Only the most recent of3 resultswithin the time period is included. Component Value Ref Range CROSSMATCH COMPATIBLE Unit ABO A Pos UNIT NUMBER [id number] Status TRANSFUSED Blood Bank Product RED BLOOD CELLS PRODUCT CODE [id number] Specimen Performing Laboratory Other [employer] [place] Transfuse Leuko-Red RBC (01/01/2018 7:11 PM)Only the most recent of6 resultswithin the time period is included.Type and screen, automated (2017 2:20 PM)Only the most recent of3 resultswithin the time period is included. Component Value Ref Range ABO/RH AUTOMATED (BEAKER) A POSITIVE Ab Scrn NEGATIVE Specimen Performing Laboratory Blood [address] [address] Body fluid cell count with differential (01/01/2018 [...] Performing Laboratory Body Fluid - Ascites [facility] [address] [address] Hereditary Hemochromatosis DNA (01/01/2018 5:26 AM)Only the [...] for at-risk family members. Pablo Meade, Ph.D., [facility] Director, Molecular Genetics Hereditary hemochromatosis (HH) [...] of these results, please contact your local [employer] genetic counselor or call [phone] ([phone]). This test was developed and its analytical performance characteristics have been determined by [employer], [place], [place]. It has not been cleared or approved by the FDA. This assay has been validated pursuant to the CLIA regulations and is used for clinical purposes. For more information on this test, go to http://education.[employer]/faq/hemochromatos Specimen Performing Laboratory Blood - Line, [facility] [address] [place] [address] Narrative Performing Lab 15 [employer] [facility], [address] [place] [address] [place] [address] Ly Hansen MD, PhD CT chest without IV contrast (12/31/2017 7:21 PM) Specimen Performing Laboratory [employer] Narrative FINAL REPORT HISTORY: Lung nodule, >=1cm [...] MD Report Verified Date/Time:12/31/2017 19:24:12 Reading Location: [address] Consult Reading Room Procedure Note Interface, External Ris In - 12/31/2017 7:26 PM 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 FINAL REPORT HISTORY: Lung nodule, >=1cm COMPARISON [...] Report Verified Date/Time: 12/31/2017 19:24:12 Reading Location: [address] Consult Reading Room Blood gas, arterial (12/31/2017 [...] Specimen Performing Laboratory Blood, Arterial - Arm, [address] [address] Peripheral Blood Smear - Hold only (12/31/2017 4:48 PM) Component Value Ref Range Peripheral Smear Save prepared and saved smear, 12/31/17 Specimen Performing Laboratory Blood - Arm, [address] [address] Reticulocyte count (12/31/2017 4:48 PM) Component Value Ref Range % Retic 3.5 (H) 0.5 - 1.8 % Specimen Performing Laboratory Blood - Arm, [address] [address] Lactate dehydrogenase (LDH) (12/31/2017 4:48 PM) Component Value Ref Range LDH 112 (L) 125 - 220 U/L Specimen Performing Laboratory Blood - Arm, [address] [address] Hemoglobin and hematocrit (12/31/2017 1:03 PM) Component Value Ref Range Hemoglobin 7.3 (L) 13.7 - 17.5 GM/DL Hematocrit 21.9 (L) 40.1 - 51.0 % Specimen Performing Laboratory Blood - Arm, [address] [address] NM myocardial perfusion SPECT,pharm(Lexiscan) (12/31/2017 12:10 PM) Specimen Performing Laboratory [facility] Narrative FINAL REPORT PROCEDURE:Rest/Stress MYOCARDIAL PERFUSION SPECT with regadenoson\\XA9\\ CPT CODE:72802 INDICATION:Liver transplant evaluation HISTORY:Cardiac risk factors: Stroke. [...] function.5. Normal extracardiac tracer distribution.6. No previous [facility] study for comparison. NONINVASIVE RISK STRATIFICATION: The above findings are considered low risk (<1% annual mortality rate) based on the following criterion: - Normal or small myocardial perfusion defect at rest or with stress ([facility]. 2012;59(9):282-25.) Signed: Mabel Napier MD Report Verified Date/Time:12/31/2017 15:12:03 Reading Location: [address] P327B [facility] Reading Room Procedure Note Interface, External Ris In - 12/31/2017 3:14 PM 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 FINAL REPORT PROCEDURE: Rest/Stress MYOCARDIAL PERFUSION SPECT with regadenoson\\XA9\\ CPT CODE: 46919 INDICATION: Liver transplant evaluation HISTORY: Cardiac risk [...] Normal extracardiac tracer distribution. 6. No previous [facility] study for comparison. NONINVASIVE RISK STRATIFICATION: The above findings are considered low risk (<1% annual mortality rate) based on the following criterion: - Normal or small myocardial perfusion defect at rest or with stress ([facility]. 2012;59(9):857-81.) Signed: Mabel Napier MD Report Verified Date/Time: 12/31/2017 15:12:03 Reading Location: [place] [id number] Med Reading Room Treadmill tolerance(Non-Nuclear Treadmill) (12/31/2017 10:40 AM) Specimen Performing Laboratory [employer] Narrative Protocol Name Lexiscan Time In Exercise [...] No meds Confirmed by fellow Patrick Katz ([id number]) on 12/31/2017 10:58:52 AM Confirmed by MD COKER JORGE ([id number]) on 01/02/2018 11:06:54 AM Procedure Note Interface, External Ris In - 01/02/2018 11:07 AM 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 Protocol Name Lexiscan Time In Exercise Phase [...] No meds Confirmed by fellow Patrick Katz ([id number]) on 12/31/2017 10:58:52 AM Confirmed by MD COKER JORGE ([id number]) on 01/02/2018 11:06:54 AM ECHOCARDIOGRAM REPORT - SCAN (12/31/2017 9:50 AM)PT/aPTT (12/31/2017 8:08 AM) Only the most recent of3 resultswithin the time period is included. Component Value Ref Range Protime 24.0 (H) 11.7 - 14.7 seconds INR 2.2 <=5.9 PTT 55.2 (H) 22.5 - 36.0 seconds Specimen Performing Laboratory Blood - Arm, Right [address] [address] Narrative RECOMMENDED COUMADIN/WARFARIN INR THERAPY RANGES STANDARD DOSE: 2.0 - 3.0 Includes: PROPHYLAXIS for venous thrombosis, systemic embolization; TREATMENT for venous thrombosis and/or pulmonary embolus. HIGH RISK: Target INR is 2.5-3.5 for patients with mechanical heart valves. PERIPHERAL VASCULAR REPORT - SCAN (12/31/2017 7:20 AM)XR chest 2 views (2017 11:15 PM) Specimen Performing Laboratory [facility] Narrative FINAL REPORT EXAMINATION: 2 VIEW [...] MD Report Verified Date/Time:12/30/2017 23:32:31 Reading Location: [address] Reading Room Procedure Note Interface, External Ris In - 12/30/2017 11:34 PM 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 FINAL REPORT EXAMINATION: 2 VIEW CHEST CLINICAL [...] Report Verified Date/Time: 12/30/2017 23:32:31 Reading Location: [address] Reading Room mandible min 4 views [...] MD Report Verified Date/Time:12/31/2017 01:37:57 Reading Location: [address] Reading Room Procedure Note Interface, External Ris In - 12/31/2017 1:40 AM 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 FINAL REPORT EXAMINATION: MANDIBULAR SERIES, 6 VIEWS [...] Report Verified Date/Time: 12/31/2017 01:37:57 Reading Location: [address] Reading Room W CONTRAST & DOPPLER (12/30/2017 7:06 PM) Component Value Ref Range Ejection Fraction Specimen Performing Laboratory [facility] Narrative Transthoracic Echocardiography Report (TTE) Demographics Patient Name Madison ARRIETA of Study 12/30/2017 [id number] Male Visit Number [id number] Unknown [id number] Room Number 923 Number Date of Birth1965Referring Physician Pacheco Mota MD Age52 year(s)Mold Designer Judi Peasron Interpreting [facility] Needs to be Pre Physician [...] External Ris In - 12/31/2017 9:21 AM 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 Transthoracic Echocardiography Report (TTE) Demographics Patient Name ABHISHEK ARRIETA Date of Study 12/30/2017 Gender Male Visit Number [id number] Race Unknown Room Number 923 Number Date of 1965 Referring Physician Pacheco Mota MD Age 52 year(s) Mold Designer Judi Pearson Interpreting [facility] Needs to be Pre Physician [...] Ref Range Ejection Fraction Specimen Performing Laboratory [facility] Impressions Right Impression 1. There is [...] Patient Name Madison ARRIETA of Study 12/30/2017 [id number] Visit Number [id number] Male Accession Number [id number] of 1965 ReferringJalal PrasunRoom Number 923 Kirma SonographerHeather Gregory Rajan Angela Physician , WOLF Procedure Type of Study: Cerebral: Carotid, CAROTID DOPPLER, BILATERAL. Indications for Study:Liver transplant evaluation. Patient Status:Routine. Study Location:Vascular Lab. Technical Quality:Adequate visualization. Risk Factors History of Disease + +----+ + !Diagnosis !Date!Comments ! + +----+ + !History/Risk!!Alcoholic cirrhosis, Ascites, Liver Failure, POLLY! !Factors:!! ! + +----+ + Procedure Note Interface, External Ris In - 12/31/2017 5:43 AM 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 PV LAB - Carotid Duplex Study Demographics Patient Name ABHISHEK ARRIETA Date of Study 12/30/2017 Age 52 Visit Number [id number] Gender Male Accession Number [id number] Date of 1965 Referring Ananda Mckay Room Number 923 Physician Noman Mold Designer Massiel Riddle Interpreting Gregory Lopez Angela Physician [...] This test was performed using the Siemens (Stunn) Chemiluminescent method. Values obtained from different assay methods cannot be used interchangeably. CA19-9 levels, regardless of value, should not be interpreted as absolute evidence of the presence or absence of disease. Specimen Performing Laboratory Blood [facility] [address] [place] [address] Narrative Performing Lab [facility] [address] [place] [address] Clau Avila MD, PhD Hemoglobin A1c (12/30/2017 3:19 PM) Component Value Ref Range Hemoglobin A1C 4.1 (L) 4.3 - 6.1 % Specimen Performing Laboratory Blood [facility] [address] [address] Zmffg-6-Znmegsrhthw Phenotype (12/30/2017 3:18 PM) Component Value Ref Range A-1 Antitryp Phenotyp SEE BELOW Comment: THIS PATIENT'S VLIXQ-2-HYRLZCVBMFL PHENOTYPE IS PI*MM. 90% of normal individuals have the MM phenotype, with normal quantitative AAT levels. Many phenotypic patterns have been described, including deficiency states with F, S, Z, or other alleles. As a general estimation, compared to M allele of 100% of normal E-2-Qtjczjocflp protein, the S allele produces approximately 60% and the Z allele 20%. For example, an MS phenotype would have about 80% of normal G-8-Sqvhzaexdcy protein level, a 50% contribution from the M allele and 30% from the S allele. A ZZ phenotype would have about 20% of normal levels, a 10% contribution from each Z gene. The F allele has normal U-3-Rpwefekuuli levels, but the kinetics of elastase inhibition [...] Laboratory Blood - Other [facility] [address] [address] [place] [address] Narrative Performing Lab [facility] [address] [place] [address] Clau Avila MD, PhD Zinc (12/30/2017 3:18 PM) Component Value Ref Range Zinc 32 (L) 60 - 130 mcg/dL Comment: This test was developed and its analytical performance characteristics have been determined by [facility]. It has not been cleared or approved by the US Food and Drug Administration. This assay has been validated pursuant to the CLIA regulations and is used for clinical purposes. Specimen Performing Laboratory Blood [address] [address] Narrative Performing Lab *[facility], [address] [place] [phone] Clau Avila MD, PhD Testosterone, free + total (12/30/2017 3:18 PM) Component Value Ref Range Testosterone 90 (L) 250 - 1100 ng/dL Testosterone, Free 12.6 (L) 35.0 - 155.0 pg/mL Comment: This test was developed and its analytical performance characteristics have been determined by [employer] [facility]. It has not been cleared or approved by the US Food and Drug Administration. This assay has been validated pursuant to the CLIA regulations and is used for clinical purposes. Specimen Performing Laboratory Blood [address] [address] Narrative Performing Lab *[facility], [address] [place] [phone] Clau Avila MD, PhD Iron, TIBC, % sat. (without ferritin) (12/30/2017 3:17 PM) Component Value Ref Range Iron 90 40 - 160 ug/dL TIBC 85 (L) 250 - 450 ug/dL Iron % Saturation 106 (H) 20 - 55 % Specimen Performing Laboratory Blood [address] [address] HIV-1 Antigen with HIV-1/2 Antibody (12/30/2017 3:17 PM) Component Value Ref Range HIV-1 Antigen with HIV 1&2 Antibody Nonreactive Nonreactive Specimen Performing Laboratory Blood [address] [address] Hepatitis C antibody (12/30/2017 3:17 PM) Component Value Ref Range Hepatitis C Ab Nonreactive Nonreactive Specimen Performing Laboratory Blood [address] [address] Hepatitis A antibody, IgM (12/30/2017 3:17 PM) Component Value Ref Range Hep A IgM Nonreactive Nonreactive Specimen Performing Laboratory Blood [facility] [address] [place] [address] Hepatitis B core antibody, IgM (12/30/2017 3:17 PM) Component Value Ref Range Hep B C IgM Nonreactive Nonreactive Specimen Performing Laboratory [address] [address] Hepatitis B core antibody, total (12/30/2017 3:17 PM) Component Value Ref Range Hep B Core Total Ab Nonreactive Nonreactive Specimen Performing Laboratory [address] [address] Vitamin D, 25-Hydroxy (12/30/2017 3:17 PM) Component Value Ref Range Vitamin D 25-Hydroxy 6.9 6.6 - 49.9 ng/mL Specimen Performing Laboratory [address] [address] Narrative Effective 08/06/2017: Reference Range Change New: 6.6-49.9 ng/mL Previous: 13.0-47.8 ng/mL Recommended Vitamin D Target Range: 30.0-40.0 ng/mL RPR (12/30/2017 3:17 PM) Component Value Ref Range RPR Nonreactive Nonreactive Specimen Performing Laboratory [address] [address] Hepatitis B surface antibody (12/30/2017 3:17 PM) Component Value Ref Range Hep B S Ab <8.0 <8.0 mIU/mL Specimen Performing Laboratory [address] [address] Hepatitis B surface antigen (12/30/2017 3:17 PM) Component Value Ref Range hepatitis B Surface Ag Nonreactive Nonreactive Specimen Performing Laboratory [address] [address] Fibrinogen (12/30/2017 3:17 PM) Component Value Ref Range Fibrinogen 161 (L) 225 - 434 mg/dl Specimen Performing Laboratory [address] [address] T3 (12/30/2017 3:17 PM) Component Value Ref Range T3, Total 42 (L) 48 - 159 ng/dL Specimen Performing Laboratory Blood [facility] [address] Transferrin (12/30/2017 3:17 PM) Component Value Ref Range Transferrin 65 (L) 174 - 382 mg/dL Specimen Performing Laboratory Blood [address] [address] Narrative Specimen slightly icteric TSH (12/30/2017 3:17 PM) Component Value Ref Range TSH 1.55 0.35 - 4.94 uIU/mL Specimen Performing Laboratory Blood [address] [address] T4 (12/30/2017 3:17 PM) Component Value Ref Range T4, Total 3.5 (L) 4.9 - 11.7 ug/dL Specimen Performing Laboratory Blood [address] [address] PSA (12/30/2017 3:17 PM) Component Value Ref Range PSA 0.1 0.0 - 4.0 ng/mL Specimen Performing Laboratory Blood [address] [address] Ferritin (12/30/2017 3:17 PM) Component Value Ref Range Ferritin 1460 (H) 5 - 275 ng/mL Specimen Performing Laboratory Blood [address] [address] Carcinoembryonic Antigen (CEA) (12/30/2017 3:17 PM) Component Value Ref Range CEA, SERUM 3.0 0.0 - 5.0 ng/mL Specimen Performing Laboratory Blood [address] [address] Cytomegalovirus antibody, IgM (12/30/2017 3:16 PM) Component Value Ref Range CMV IgM Negative Specimen Performing Laboratory Blood - Arm, [address] [address] Cryptococcal antigen (12/30/2017 3:16 PM) Component Value Ref Range Cryptococcal Antigen, Serum Negative Negative, Interference Specimen Performing Laboratory Blood - Arm, [address] [address] EBV-VCA antibody, IgM (12/30/2017 3:16 PM) Component Value Ref Range EBV VCA IgM Negative Specimen Performing Laboratory Blood - Arm, [address] [address] EBV-VCA antibody, IgG (12/30/2017 3:16 PM) Component Value Ref Range EBV VCA IgG Positive Specimen Performing Laboratory Blood - Arm, [address] [address] Cytomegalovirus antibody, IgG (12/30/2017 3:16 PM) Component Value Ref Range CMV IgG Positive Specimen Performing Laboratory Blood - Arm, [address] [address] Uric acid (12/30/2017 3:16 PM) Component Value Ref Range Uric Acid 8.5 (H) 2.6 - 7.2 mg/dL Specimen Performing Laboratory Blood - Arm, [address] [address] Narrative Specimen slightly icteric Lipid panel (12/30/2017 3:16 PM) Component Value Ref Range Triglycerides 38 mg/dL Cholesterol 51 mg/dL HDL 10 mg/dL LDL Calculated 33 mg/dL Specimen Performing Laboratory Blood - Arm, [address] [address] Narrative Triglyceride Reference Range: Low Risk <150 Pyznjxzpxi613-987 High Risk 200-499 Very High Risk>=500 Cholesterol Reference Range: Low Risk <200 Icunlzsjgd426-262 High Risk>240 HDL Cholesterol Reference Range: Low Risk >=60 High Risk <40 LDL Cholesterol Reference Range: Optimal<100 Near Irhodcx889-328 Ztmgkhzxoz841-574 Kuqq732-506 Very High >=190 Specimen slightly icteric Sodium, random urine (12/30/2017 5:14 AM) Component Value Ref Range Sodium Urine <20 meq/L Specimen Performing Laboratory Urine - Urine, Voided [address] [address] Narrative Reference Range: No Normals Protein, random urine (12/30/2017 5:14 AM) Component Value Ref Range Protein, Urine <7 0 - 14 mg/dL Specimen Performing Laboratory Urine - Urine, Voided [address] [address] Creatinine, random urine (12/30/2017 5:14 AM) Component Value Ref Range Creatinine, Ur 60.6 mg/dL Specimen Performing Laboratory Urine - Urine, Voided [address] [address] Narrative Reference Range: No Normals Urinalysis w/Microscopic (12/30/2017 5:14 AM)Only the most recent of2 resultswithin the time period is included. Component Value Ref Range Color, UA Yellow Clarity, UA Clear Specific [place], UA 1.008 1.001 - 1.035 pH, UA [...] Specimen Performing Laboratory Urine - Urine, Voided [address] [address] Ethanol (12/29/2017 12:33 PM) Component Value Ref Range Ethanol Lvl <10 <=10 mg/dL Specimen Performing Laboratory Blood - Arm, Right [address] [address] [address] abdomen/pelvis without iv contrast (12/28/2017 9:28 PM) Specimen Performing Laboratory [employer] Narrative FINAL REPORT EXAM: CT of the [...] MD Report Verified Date/Time:12/28/2017 22:20:52 Reading Location: [address] Transitional Reading Room Procedure Note Interface, External Ris In - 12/28/2017 10:23 PM 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 FINAL REPORT EXAM: CT of the abdomen [...] Report Verified Date/Time: 12/28/2017 22:20:52 Reading Location: [address] Transitional Reading Room Alpha fetoprotein (AFP), tumor marker (12/28/2017 4:47 AM)Only the most recent of2 resultswithin the time period is included. Component Value Ref Range Alpha-Fetoprotein 4.1 <10.0 ng/mL Specimen Performing Laboratory Blood - Arm, [address] [address] Body fluid culture + gram stain (12/27/2017 7:03 PM)Only the most recent of2 resultswithin the time period is included. Component Value Ref Range Result No growth Gram Stain Result No WBCs Gram Stain Result No organisms seen Specimen Performing Laboratory Body Fluid - Ascites [address] [address] Albumin, body fluid (12/27/2017 7:03 PM) Component Value Ref Range Albumin, Fluid 0.4 gm/dL Specimen Performing Laboratory Body Fluid - Ascites [address] [address] Narrative Reference Range:No Normals Assay performance has [...] Specimen Performing Laboratory Blood - Arm, Left [address] [address] Narrative Specimen slightly icteric RHYTHM STRIP - [...] Performing Laboratory Urine - Urine, Clean Catch [address] [address] Narrative DRUGCUTOFF CONC. Cocaine 300 ng/mL Gdxehxycofw06 ng/mL Tejkodkelidpoo570 ng/mL Barbiturate 200 ng/mL Mjtklaopltlsn85 ng/mL Yoigav861 ng/mL Methadone 300 ng/mL Amphetamine/ 1000 ng/mL Methamphetamine Oxycodone 300 ng/mL This assay provides an unconfirmed qualitative test result for the clinical management of patients in emergency situations. Chain of custody not maintained. Some pngf-inc-sezwrsh medications, as well as adulterants, may cause inaccurate results. Clinical correlation should be applied. A more comprehensive drug screen or confirmation of a detected drug may be performed upon request. MR abdomen without & with IV contrast (09/05/2017 12:11 PM) Specimen Performing Laboratory [employer] Narrative FINAL REPORT MRI of the abdomen [...] MD Report Verified Date/Time:09/05/2017 13:52:35 Reading Location: [facility] C013Y CT Body Reading Room Procedure Note Interface, External Ris In - 09/05/2017 1:54 PM 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 FINAL REPORT MRI of the abdomen with [...] Report Verified Date/Time: 09/05/2017 13:52:35 Reading Location: [facility] B1 C013Y CT Body Reading Room Blood culture #2 (09/03/2017 10:15 PM)Only the most recent of2 resultswithin the time period is included. Component Value Ref Range Result No growth in 5 days Specimen Performing Laboratory Blood - Arm, Left [address] [address] Gamma Glutamyl Transferase (GGT) (07/24/2017 2:42 PM) Component Value Ref Range GGT 17 9 - 64 U/L Specimen Performing Laboratory Blood [address] [address] Narrative Specimen moderately icteric after 04/29/2017
--- OUTSIDE RECORDS SUMMARY | 2018-04-30 19:51 | XMS REPORT ---
:1965 [facility] Address [address] [place] [address] Dr. [place] [address] [place] [address] Care Team Providers Name Role Phone BRANDO AGUILAR Unavailable Unavailable BRYAN MUSA Unavailable Unavailable ANDREA DENTON Unavailable [...] Comments Text Results Atomic Results Result Comments POCT-CREATININE 2018-04-28 13:59:00 Test Item Value Reference Range Comments POC-CREATININE (BEAKER) (test 2.0 mg/dL 0.6-1.3 TESTED AT [facility] 6720 rgfu=1881) [facility] [address] POC-EGFR (BEAKER) (test cuqm=7585) 35 mL/min/1.73M2 PET/CT, LIMITED AREA [id number] 08:25:00PET/ CT ChestReason for Exam:-> Elongated nodular density in the right lower lobeFINAL REPORT EXAMINATION: FDG-PET/CT, 03/30/2018 2:00 PM CLINICAL HISTORY: Indeterminate right lower lobe pulmonary nodule.INDICATION: Evaluate for malignancy. FDG-PET/CT is obtained for initial treatment evaluation.COMPARISON : Prior scans, most recently Chest CT 12/31/2017. TECHNIQUE:Radiopharmaceutical: F -18 FluorodeoxyglucoseAdministered activity: 10.5] mCiRoute of administration: Intravenously via the right antecubital veinLocalization time: 66 minutesScan extent: Skull base to the proximal thighsAdditional imaging: NoneSerum blood glucose: 119CPT Code: 83508 FINDINGS:Head and Neck: There is no trisha hypermetabolism along the cervical chains. Tracer uptake in the head and neck mucosa is normal and symmetric. Chest: The elongated pulmonary nodule in the right lower lobealong the fissure exhibits only background-level radiotracer activity on PET scanning (SUV <0.9).Additional scattered linear opacities also show minimal activity, [...] the defect. Musculoskeletal: There are foci of intermediate- grade radiotracer activity localizing to the ribs along the costochondral margins bilaterally, with evidence of cortical irregularity on CT. These are consistent with sites of healing trauma and fracture. No suspicious sites of osseous hypermetabolism are seen. IMPRESSION: 1. The right lower lobepulmonary nodule seen on the recent CT examination shows only background-level radiotracer activity,favoring a benign etiology. 2. Additional CT findings in the abdomen, including cirrhosis and ascites, as documented on prior scans. Signed: Ingrid Hung MDReport Verified Date/Time: 03/31/2018 08:25:09 POCT- GLUCOSE [id number] 14:54:00 Test Item Value Reference Range Comments POC-GLUCOSE METER (BEAKER) 119 mg/dL 70-110 TESTED AT [facility] [address] [facility] (test kfau=5753) [facility] [address] COMPREHENSIVE METABOLIC [id number] 16:49:00 Test Item Value Reference Range Comments TOTAL PROTEIN (BEAKER) 6.2 gm/dL 6.0-8.3 (test akcx=900) ALBUMIN (BEAKER) (test 3.4 g/dL 3.5-5.0 rziz=4655) ALKALINE PHOSPHATASE 139 U/L 40-150 (BEAKER) (test tbua=006) BILIRUBIN TOTAL (BEAKER) 4.0 mg/dL 0.2-1.2 (test oxvm=570) SODIUM (BEAKER) (test 129 meq/L 136-145 wvya=089) POTASSIUM (BEAKER) (test 4.3 meq/L 3.5-5.1 hfvp=241) CHLORIDE (BEAKER) (test 96 meq/L 98-107 kemh=646) CO2 (BEAKER) (test 22 meq/L 22-29 xtxg=982) BLOOD UREA NITROGEN 28 mg/dL 7-21 (BEAKER) (test jmld=930) CREATININE (BEAKER) (test 1.51 mg/dL 0.57-1.25 gdvn=710) GLUCOSE RANDOM (BEAKER) 89 mg/dL 70-105 (test ruwz=776) CALCIUM (BEAKER) (test 9.5 mg/dL 8.4-10.2 lixx=038) AST (SGOT) (BEAKER) (test 26 U/L 5-34 gelf=019) ALT (SGPT) (BEAKER) (test 11 U/L 6-55 nrdu=478) EGFR (BEAKER) (test 49 mL/min/1.73 sq m ESTIMATED GFR IS NOT vxtr=7076) ACCURATE CREATININE CLEARANCE IN PREDICTING GLOMERULAR FILTRATION RATE. ESTIMATED GFR IS NOT APPLICABLE FOR DIALYSIS PATIENTS. Specimen slightly ictericBILIRUBIN, [id number] 16:49:00 Test Item Value Reference Range Comments BILIRUBIN DIRECT (BEAKER) (test acxf=343) 2.8 mg/dL 0.1-0.5 PROTHROMBIN [id number] 16:36:00 Test Item Value Reference Range Comments PROTIME (BEAKER) (test viki=158) 19.0 seconds 11.7-14.7 INR (BEAKER) (test yzwx=701) 1.6 <=5.9 RECOMMENDED COUMADIN/WARFARIN INR THERAPY RANGESSTANDARD DOSE: 2.0 - 3.0 Includes: PROPHYLAXIS forvenous thrombosis, systemic embolization; TREATMENT for venous thrombosis and/or pulmonary embolus.HIGH RISK: Target INR is 2.5-3.5 for patients with mechanical heart valves.CBC W/PLT COUNT & AUTO [id number] 16:27:00 Test Item Value Reference Range Comments WHITE BLOOD CELL COUNT (BEAKER) (test vfzq=669) 6.0 K/ L 3.5-10.5 RED BLOOD CELL COUNT (BEAKER) (test slid=323) 2.74 M/ L 4.63-6.08 HEMOGLOBIN (BEAKER) (test omkl=305) 9.3 GM/DL 13.7-17.5 HEMATOCRIT (BEAKER) (test lwqy=925) 27.6 % 40.1-51.0 MEAN CORPUSCULAR VOLUME (BEAKER) (test xpta=026) 100.7 fL 79.0-92.2 MEAN CORPUSCULAR HEMOGLOBIN (BEAKER) (test 33.9 pg 25.7-32.2 dfwv=866) MEAN CORPUSCULAR HEMOGLOBIN CONC (BEAKER) (test 33.7 GM/DL 32.3-36.5 xhyd=445) RED CELL DISTRIBUTION WIDTH (BEAKER) (test 14.9 % 11.6-14.4 adyr=724) PLATELET COUNT (BEAKER) (test ynxy=462) 96 K/CU MM 150-450 MEAN PLATELET VOLUME (BEAKER) (test kgdx=491) 9.4 fL 9.4-12.4 NUCLEATED RED BLOOD CELLS (BEAKER) (test 0 /100 WBC 0-0 oelr=889) NEUTROPHILS RELATIVE PERCENT (BEAKER) (test 64 % gmfg=091) LYMPHOCYTES RELATIVE PERCENT (BEAKER) (test 11 % gocd=143) MONOCYTES RELATIVE PERCENT (BEAKER) (test 16 % djdi=360) EOSINOPHILS RELATIVE PERCENT (BEAKER) (test 7 % wyzx=175) BASOPHILS RELATIVE PERCENT (BEAKER) (test 1 % izrr=505) NEUTROPHILS ABSOLUTE COUNT (BEAKER) (test 3.83 K/ L 1.78-5.38 vtps=668) LYMPHOCYTES ABSOLUTE COUNT (BEAKER) (test 0.66 K/ L 1.32-3.57 pnct=800) MONOCYTES ABSOLUTE COUNT (BEAKER) (test alza=351) 0.95 K/ L 0.30-0.82 EOSINOPHILS ABSOLUTE COUNT (BEAKER) (test 0.41 K/ L 0.04-0.54 zypj=081) BASOPHILS ABSOLUTE COUNT (BEAKER) (test bgqi=215) 0.03 K/ L 0.01-0.08 IMMATURE GRANULOCYTES-RELATIVE PERCENT (BEAKER) 2 % 0-1 (test awnf=1852) BASIC METABOLIC [id number] 08:26:00 Test Item Value Reference Range Comments SODIUM (BEAKER) (test 127 meq/L 136-145 ljfn=089) POTASSIUM (BEAKER) (test 4.3 meq/L 3.5-5.1 zier=652) CHLORIDE (BEAKER) (test 96 meq/L 98-107 nqem=580) CO2 (BEAKER) (test 23 meq/L 22-29 jvvu=379) BLOOD UREA NITROGEN 25 mg/dL 7-21 (BEAKER) (test fwhz=223) CREATININE (BEAKER) (test 1.46 mg/dL 0.57-1.25 tnaw=867) GLUCOSE RANDOM (BEAKER) 130 mg/dL 70-105 (test czrb=580) CALCIUM (BEAKER) (test 9.1 mg/dL 8.4-10.2 wblk=620) EGFR (BEAKER) (test 51 mL/min/1.73 sq m ESTIMATED GFR IS NOT jfsp=0413) ACCURATE CREATININE CLEARANCE IN PREDICTING GLOMERULAR FILTRATION RATE. ESTIMATED GFR IS NOT APPLICABLE FOR DIALYSIS PATIENTS. Specimen slightly ictericCBC (HEMOGRAM ONLY)2018-02-23 08:06:00 Test Item Value Reference Range Comments WHITE BLOOD CELL COUNT (BEAKER) (test dcte=048) 5.4 K/ L 3.5-10.5 RED BLOOD CELL COUNT (BEAKER) (test wmdf=517) 2.64 M/ L 4.63-6.08 HEMOGLOBIN (BEAKER) (test faub=941) 8.8 GM/DL 13.7-17.5 HEMATOCRIT (BEAKER) (test ppnf=530) 26.2 % 40.1-51.0 MEAN CORPUSCULAR VOLUME (BEAKER) (test vehy=343) 99.2 fL 79.0-92.2 MEAN CORPUSCULAR HEMOGLOBIN (BEAKER) (test 33.3 pg 25.7-32.2 wybm=580) MEAN CORPUSCULAR HEMOGLOBIN CONC (BEAKER) (test 33.6 GM/DL 32.3-36.5 sqnb=299) RED CELL DISTRIBUTION WIDTH (BEAKER) (test 16.2 % 11.6-14.4 fgmw=353) PLATELET COUNT (BEAKER) (test pbnr=602) 100 K/CU MM 150-450 MEAN PLATELET VOLUME (BEAKER) (test evae=144) 8.7 fL 9.4-12.4 NUCLEATED RED BLOOD CELLS (BEAKER) (test 0 /100 WBC 0-0 qrbl=127) COMPREHENSIVE METABOLIC [id number] 15:06:00 Test Item Value Reference Range Comments TOTAL PROTEIN (BEAKER) 6.5 gm/dL 6.0-8.3 (test kuso=064) ALBUMIN (BEAKER) (test 3.7 g/dL 3.5-5.0 fcko=6722) ALKALINE PHOSPHATASE 135 U/L 40-150 (BEAKER) (test xtmc=197) BILIRUBIN TOTAL (BEAKER) 4.5 mg/dL 0.2-1.2 (test svfm=474) SODIUM (BEAKER) (test 131 meq/L 136-145 vumf=770) POTASSIUM (BEAKER) (test 5.8 meq/L 3.5-5.1 bamt=015) CHLORIDE (BEAKER) (test 103 meq/L 98-107 lghd=941) CO2 (BEAKER) (test 24 meq/L 22-29 fina=725) BLOOD UREA NITROGEN 27 mg/dL 7-21 (BEAKER) (test xfbd=524) CREATININE (BEAKER) (test 1.17 mg/dL 0.57-1.25 irpg=960) GLUCOSE RANDOM (BEAKER) 111 mg/dL 70-105 (test avew=040) CALCIUM (BEAKER) (test 11.0 mg/dL 8.4-10.2 xbzq=071) AST (SGOT) (BEAKER) (test 28 U/L 5-34 rpgn=418) ALT (SGPT) (BEAKER) (test 19 U/L 6-55 iuzd=036) EGFR (BEAKER) (test 65 mL/min/1.73 sq m ESTIMATED GFR IS NOT pwsh=9897) ACCURATE CREATININE CLEARANCE IN PREDICTING GLOMERULAR FILTRATION RATE. ESTIMATED GFR IS NOT APPLICABLE FOR DIALYSIS PATIENTS. Specimen slightly ictericBILIRUBIN, [id number] 15:06:00 Test Item Value Reference Range Comments BILIRUBIN DIRECT (BEAKER) (test gpar=356) 3.0 mg/dL 0.1-0.5 PROTHROMBIN [id number] 14:42:00 Test Item Value Reference Range Comments PROTIME (BEAKER) (test menx=746) 19.1 seconds 11.7-14.7 INR (BEAKER) (test qhro=748) 1.6 <=5.9 RECOMMENDED COUMADIN/WARFARIN INR THERAPY RANGESSTANDARD DOSE: 2.0 - 3.0 Includes: PROPHYLAXIS forvenous thrombosis, systemic embolization; TREATMENT for venous thrombosis and/or pulmonary embolus.HIGH RISK: Target INR is 2.5-3.5 for patients with mechanical heart valves.CBC W/PLT COUNT & AUTO [id number] 14:36:00 Test Item Value Reference Range Comments WHITE BLOOD CELL COUNT (BEAKER) (test foqx=143) 5.5 K/ L 3.5-10.5 RED BLOOD CELL COUNT (BEAKER) (test kmbb=830) 2.84 M/ L 4.63-6.08 HEMOGLOBIN (BEAKER) (test ndhq=020) 9.5 GM/DL 13.7-17.5 HEMATOCRIT (BEAKER) (test qowf=713) 28.8 % 40.1-51.0 MEAN CORPUSCULAR VOLUME (BEAKER) (test vukn=216) 101.4 fL 79.0-92.2 MEAN CORPUSCULAR HEMOGLOBIN (BEAKER) (test 33.5 pg 25.7-32.2 zmwx=725) MEAN CORPUSCULAR HEMOGLOBIN CONC (BEAKER) (test 33.0 GM/DL 32.3-36.5 rklh=695) RED CELL DISTRIBUTION WIDTH (BEAKER) (test 19.4 % 11.6-14.4 fypx=836) PLATELET COUNT (BEAKER) (test vmgu=449) 65 K/CU MM 150-450 MEAN PLATELET VOLUME (BEAKER) (test oubj=137) 8.8 fL 9.4-12.4 NUCLEATED RED BLOOD CELLS (BEAKER) (test 0 /100 WBC 0-0 mxls=541) NEUTROPHILS RELATIVE PERCENT (BEAKER) (test 66 % ryht=517) LYMPHOCYTES RELATIVE PERCENT (BEAKER) (test 14 % nvev=848) MONOCYTES RELATIVE PERCENT (BEAKER) (test 15 % tksg=655) EOSINOPHILS RELATIVE PERCENT (BEAKER) (test 4 % yeot=551) BASOPHILS RELATIVE PERCENT (BEAKER) (test 0 % duvy=394) NEUTROPHILS ABSOLUTE COUNT (BEAKER) (test 3.58 K/ L 1.78-5.38 xmpb=650) LYMPHOCYTES ABSOLUTE COUNT (BEAKER) (test 0.78 K/ L 1.32-3.57 lekx=825) MONOCYTES ABSOLUTE COUNT (BEAKER) (test mohr=768) 0.79 K/ L 0.30-0.82 EOSINOPHILS ABSOLUTE COUNT (BEAKER) (test 0.23 K/ L 0.04-0.54 jnav=254) BASOPHILS ABSOLUTE COUNT (BEAKER) (test xdyt=663) 0.02 K/ L 0.01-0.08 IMMATURE GRANULOCYTES-RELATIVE PERCENT (BEAKER) 1 % 0-1 (test rpcj=0375) RAD, KNEE, COMPLETE (4 VIEWS), [id number] 11:15:00Reason for exam:->FALL , PAINFINAL REPORT Bilateral [...] Reading Room RAD, KNEE, COMPLETE (4 VIEWS), [id number] 11:15:00Reason for exam:->FALL, PAINFINAL REPORT Bilateral knee [...] extensive bilateral vascular calcifications. Signed: Tatiana Quezada MDRstanort Verified Date/Time: 01/06/2018 11:15:08 Reading Location: [facility] Radiology Reading Room CBC W/PLT COUNT & AUTO [id number] 10: 58:00 Test Item Value Reference Range Comments WHITE BLOOD CELL COUNT (BEAKER) (test yhdd=929) 2.9 K/ L 3.5-10.5 RED BLOOD CELL COUNT (BEAKER) (test xexk=552) 2.27 M/ L 4.63-6.08 HEMOGLOBIN (BEAKER) (test adyw=457) 7.1 GM/DL 13.7-17.5 HEMATOCRIT (BEAKER) (test krui=039) 21.0 % 40.1-51.0 MEAN CORPUSCULAR VOLUME (BEAKER) (test ctsb=281) 92.5 fL 79.0-92.2 MEAN CORPUSCULAR HEMOGLOBIN (BEAKER) (test 31.3 pg 25.7-32.2 zkyr=578) MEAN CORPUSCULAR HEMOGLOBIN CONC (BEAKER) (test 33.8 GM/DL 32.3-36.5 hkzu=124) RED CELL DISTRIBUTION WIDTH (BEAKER) (test 17.2 % 11.6-14.4 mngy=593) PLATELET COUNT (BEAKER) (test lgzs=858) 42 K/CU MM 150-450 MEAN PLATELET VOLUME (BEAKER) (test jgvy=483) 10.1 fL 9.4-12.4 NUCLEATED RED BLOOD CELLS (BEAKER) (test 0 /100 WBC 0-0 nfuz=726) NEUTROPHILS RELATIVE PERCENT (BEAKER) (test 77 % cnds=120) LYMPHOCYTES RELATIVE PERCENT (BEAKER) (test 12 % yamn=331) MONOCYTES RELATIVE PERCENT (BEAKER) (test 10 % gxow=897) EOSINOPHILS RELATIVE PERCENT (BEAKER) (test 1 % dxew=570) BASOPHILS RELATIVE PERCENT (BEAKER) (test 0 % rdev=911) NEUTROPHILS ABSOLUTE COUNT (BEAKER) (test 2.21 K/ L 1.78-5.38 jifs=364) LYMPHOCYTES ABSOLUTE COUNT (BEAKER) (test 0.33 K/ L 1.32-3.57 wxlm=467) MONOCYTES ABSOLUTE COUNT (BEAKER) (test evkz=481) 0.30 K/ L 0.30-0.82 EOSINOPHILS ABSOLUTE COUNT (BEAKER) (test 0.03 K/ L 0.04-0.54 srdd=114) BASOPHILS ABSOLUTE COUNT (BEAKER) (test vxxc=790) 0.00 K/ L 0.01-0.08 IMMATURE GRANULOCYTES-RELATIVE PERCENT (BEAKER) 0 % 0-1 (test xmjd=1307) [id number] 06:06:00 Test Item Value Reference Range Comments PHOSPHORUS (BEAKER) (test swov=654) 3.6 mg/dL 2.3-4.7 [id number] 06:06:00 Test Item Value Reference Range Comments MAGNESIUM (BEAKER) (test caec=869) 2.0 mg/dL 1.6-2.6 BASIC METABOLIC [id number] 06:06:00 Test Item Value Reference Range Comments SODIUM (BEAKER) (test 130 meq/L 136-145 yaxr=802) POTASSIUM (BEAKER) (test 4.4 meq/L 3.5-5.1 vctp=452) CHLORIDE (BEAKER) (test 100 meq/L 98-107 wnmn=194) CO2 (BEAKER) (test 23 meq/L 22-29 pbro=864) BLOOD UREA NITROGEN 21 mg/dL 7-21 (BEAKER) (test cjcs=601) CREATININE (BEAKER) (test 1.11 mg/dL 0.57-1.25 ydgn=759) GLUCOSE RANDOM (BEAKER) 120 mg/dL 70-105 (test fxoq=790) CALCIUM (BEAKER) (test 9.4 mg/dL 8.4-10.2 cyju=709) EGFR (BEAKER) (test 70 mL/min/1.73 sq m ESTIMATED GFR IS NOT tppz=5911) ACCURATE CREATININE CLEARANCE IN PREDICTING GLOMERULAR FILTRATION RATE. ESTIMATED GFR IS NOT APPLICABLE FOR DIALYSIS PATIENTS. Specimen slightly ictericPROTHROMBIN [id number] 06:02:00 Test Item Value Reference Range Comments PROTIME (BEAKER) (test dmsh=772) 22.9 seconds 11.7-14.7 INR (BEAKER) (test oaav=898) 2.0 <=5.9 RECOMMENDED COUMADIN/WARFARIN INR THERAPY RANGESSTANDARD DOSE: 2.0 - 3.0 Includes: PROPHYLAXIS forvenous thrombosis, systemic embolization; TREATMENT for venous thrombosis and/or pulmonary embolus.HIGH RISK: Target INR is 2.5-3.5 for patients with mechanical heart valves.CALCIUM, [id number] 06:01:00 Test Item Value Reference Range Comments CALCIUM IONIZED (BEAKER) (test bpph=112) 1.11 mmol/L 1.12-1.27 PH, BLOOD (BEAKER) (test rcic=6427) 7.53 CORTISOL,60 [id number] 23:20:00 Test Item Value Reference Range Comments CORTISOL BASELINE NETWORKED (BEAKER) (test 4.8 mcg/dL tcmr=0563) CORTISOL 30 MINUTE NETWORKED (BEAKER) (test 9.2 mcg/dL jjgk=8078) CORTISOL, 60 MINUTE (BEAKER) (test olpt=6735) 12.6 ug/dL ACTH STIMULATION TEST INTERPRETATION GUIDELINES(Synonyms: [...] study by Mindy et al (NEVAEH 2000,283( 8):6452-45), the ACTH Stimulation Test provides important prognostic [...] serum cortisollevel 60 minutes after cosyntropin administration.CORTISOL,30 [id number] 22:35:00 Test Item Value Reference Range Comments CORTISOL BASELINE NETWORKED (BEAKER) (test 4.8 mcg/dL lqzj=0559) CORTISOL, 30 MINUTE (BEAKER) (test ejst=1886) 9.2 ug/dL ACTH STIMULATION TEST INTERPRETATION GUIDELINES(Synonyms: [...] study by Mindy et al (NEVAEH 2000,283( 8):1063-46), the ACTH Stimulation Test provides important prognostic [...] Draw serum cortisollevel 60 minutes after cosyntropin administration.CORTISOL,[id number] 22:35:00 Test Item Value Reference Range Comments CORTISOL, BASELINE (TIMOTHYAKER) (test fbno=7653) 4.8 ug/dL ACTH STIMULATION TEST INTERPRETATION GUIDELINES(Synonyms: [...] serum cortisollevel 60 minutes after cosyntropin administration.U/S, [id number] 17:54:00Reason for exam:->therapeuticFINAL REPORT History: Ascites. PROCEDURE: Following informed written consent,the patient's right lower quadrant was prepped and draped in the usual sterile manner. 2% lidocaine was given locally for anesthesia. No conscious sedation was administered. Using ultrasound guidance, a 5 Wolof one-step catheter was advanced percutaneously into the [...] 1. Successful uncomplicated ultrasound-guided paracentesis. Signed: Karina Rainelif Verified Date/Time: 01/05/2018 17: 54:16 Reading Location: [address] Ultrasound Reading Room [id number] 11:19:00 Test Item Value Reference Range Comments CORTISOL, TOTAL (BEAKER) (test tuwq=4299) 2.7 ug/dL 3.7-19.4 [id number] 10:21:00 Test Item Value Reference Range Comments PHOSPHORUS (BEAKER) (test loku=951) 2.8 mg/dL 2.3-4.7 [id number] 10:21:00 Test Item Value Reference Range Comments MAGNESIUM (BEAKER) (test bwxt=860) 1.9 mg/dL 1.6-2.6 BASIC METABOLIC [id number] 10:21:00 Test Item Value Reference Range Comments SODIUM (BEAKER) (test 127 meq/L 136-145 piow=982) POTASSIUM (BEAKER) (test 5.0 meq/L 3.5-5.1 bvjw=376) CHLORIDE (BEAKER) (test 100 meq/L 98-107 mngj=417) CO2 (BEAKER) (test 22 meq/L 22-29 lems=593) BLOOD UREA NITROGEN 25 mg/dL 7-21 (BEAKER) (test jjrl=833) CREATININE (BEAKER) (test 1.17 mg/dL 0.57-1.25 zwsw=765) GLUCOSE RANDOM (BEAKER) 84 mg/dL 70-105 (test gwgu=082) CALCIUM (BEAKER) (test 8.7 mg/dL 8.4-10.2 pjmj=015) EGFR (BEAKER) (test 65 mL/min/1.73 sq m ESTIMATED GFR IS NOT tyvs=1893) ACCURATE CREATININE CLEARANCE IN PREDICTING GLOMERULAR FILTRATION RATE. ESTIMATED GFR IS NOT APPLICABLE FOR DIALYSIS PATIENTS. Specimen slightly ictericCBC W/PLT COUNT & AUTO [id number] 08:42 :00 Test Item Value Reference Range Comments WHITE BLOOD CELL COUNT (BEAKER) (test szav=654) 2.7 K/ L 3.5-10.5 RED BLOOD CELL COUNT (BEAKER) (test qzid=374) 2.33 M/ L 4.63-6.08 HEMOGLOBIN (BEAKER) (test lcrw=123) 7.3 GM/DL 13.7-17.5 HEMATOCRIT (BEAKER) (test qwww=699) 22.0 % 40.1-51.0 MEAN CORPUSCULAR VOLUME (BEAKER) (test serb=972) 94.4 fL 79.0-92.2 MEAN CORPUSCULAR HEMOGLOBIN (BEAKER) (test 31.3 pg 25.7-32.2 ltbp=709) MEAN CORPUSCULAR HEMOGLOBIN CONC (BEAKER) (test 33.2 GM/DL 32.3-36.5 vvgi=710) RED CELL DISTRIBUTION WIDTH (BEAKER) (test 17.2 % 11.6-14.4 ulxc=751) PLATELET COUNT (BEAKER) (test myfm=915) 45 K/CU MM 150-450 MEAN PLATELET VOLUME (BEAKER) (test ybka=320) 9.3 fL 9.4-12.4 NUCLEATED RED BLOOD CELLS (BEAKER) (test 0 /100 WBC 0-0 vzrx=211) NEUTROPHILS RELATIVE PERCENT (BEAKER) (test 60 % dxun=789) LYMPHOCYTES RELATIVE PERCENT (BEAKER) (test 17 % jozn=616) MONOCYTES RELATIVE PERCENT (BEAKER) (test 16 % rofv=013) EOSINOPHILS RELATIVE PERCENT (BEAKER) (test 6 % tafp=048) BASOPHILS RELATIVE PERCENT (BEAKER) (test 0 % vjqj=574) NEUTROPHILS ABSOLUTE COUNT (BEAKER) (test 1.63 K/ L 1.78-5.38 bqal=113) LYMPHOCYTES ABSOLUTE COUNT (BEAKER) (test 0.45 K/ L 1.32-3.57 vbpf=581) MONOCYTES ABSOLUTE COUNT (BEAKER) (test zfkz=602) 0.44 K/ L 0.30-0.82 EOSINOPHILS ABSOLUTE COUNT (BEAKER) (test 0.16 K/ L 0.04-0.54 jweu=727) BASOPHILS ABSOLUTE COUNT (BEAKER) (test eens=084) 0.01 K/ L 0.01-0.08 IMMATURE GRANULOCYTES-RELATIVE PERCENT (BEAKER) 1 % 0-1 (test xhvq=0600) (MANUAL DIFFERENTIAL)2018-01-05 08:42:00 Test Item Value Reference Range Comments TOTAL COUNTED (BEAKER) (test aoyk=0883) WBC MORPHOLOGY (BEAKER) (test qeax=497) Normal PLT MORPHOLOGY (BEAKER) (test jzyv=573) Normal ANISOCYTOSIS (BEAKER) (test qmcu=090) 1+ few CALCIUM, [id number] 08:10:00 Test Item Value Reference Range Comments CALCIUM IONIZED (BEAKER) (test bzei=588) 1.08 mmol/L 1.12-1.27 PH, BLOOD (BEAKER) (test tqpo=2127) 7.44 PROTHROMBIN [id number] 07:12:00 Test Item Value Reference Range Comments PROTIME (BEAKER) (test mmec=158) 22.4 seconds 11.7-14.7 INR (BEAKER) (test fyik=929) 2.0 <=5.9 RECOMMENDED COUMADIN/WARFARIN INR THERAPY RANGESSTANDARD DOSE: 2.0 - 3.0 Includes: PROPHYLAXIS forvenous thrombosis, systemic embolization; TREATMENT for venous thrombosis and/or pulmonary embolus.HIGH RISK: Target INR is 2.5-3.5 for patients with mechanical heart valves.[id number] 17:54:00 Test Item Value Reference Range Comments SODIUM (BEAKER) (test scxf=349) 129 meq/L 136-145 POTASSIUM (BEAKER) (test ibck=722) 5.5 meq/L 3.5-5.1 CHLORIDE (BEAKER) (test hlxn=873) 101 meq/L 98-107 CO2 (BEAKER) (test slmv=349) 26 meq/L 22-29 Call [id number] with resultsCBC (HEMOGRAM ONLY)2018-01-04 07:16:00 Test Item Value Reference Range Comments WHITE BLOOD CELL COUNT (BEAKER) (test unef=582) 2.9 K/ L 3.5-10.5 RED BLOOD CELL COUNT (BEAKER) (test weru=035) 2.25 M/ L 4.63-6.08 HEMOGLOBIN (BEAKER) (test lrdv=960) 7.3 GM/DL 13.7-17.5 HEMATOCRIT (BEAKER) (test dner=239) 21.3 % 40.1-51.0 MEAN CORPUSCULAR VOLUME (BEAKER) (test iqkl=880) 94.7 fL 79.0-92.2 MEAN CORPUSCULAR HEMOGLOBIN (BEAKER) (test 32.4 pg 25.7-32.2 mmen=827) MEAN CORPUSCULAR HEMOGLOBIN CONC (BEAKER) (test 34.3 GM/DL 32.3-36.5 zoqg=965) RED CELL DISTRIBUTION WIDTH (BEAKER) (test 17.6 % 11.6-14.4 gbnz=775) PLATELET COUNT (BEAKER) (test gbet=383) 59 K/CU MM 150-450 MEAN PLATELET VOLUME (BEAKER) (test awsk=276) 11.3 fL 9.4-12.4 NUCLEATED RED BLOOD CELLS (BEAKER) (test 0 /100 WBC 0-0 ebow=923) COMPREHENSIVE METABOLIC [id number] 06:49:00 Test Item Value Reference Range Comments TOTAL PROTEIN (BEAKER) 5.3 gm/dL 6.0-8.3 Specimen slightly (test vrjl=965) hemolyzed ALBUMIN (BEAKER) (test 3.3 g/dL 3.5-5.0 Specimen slightly nreg=6567) hemolyzed ALKALINE PHOSPHATASE 81 U/L 40-150 (BEAKER) (test mskl=423) BILIRUBIN TOTAL (BEAKER) 2.4 mg/dL 0.2-1.2 Specimen slightly (test uwsv=820) hemolyzed SODIUM (BEAKER) (test 127 meq/L 136-145 ujza=344) POTASSIUM (BEAKER) (test 5.7 meq/L 3.5-5.1 Specimen slightly qwcm=494) hemolyzed CHLORIDE (BEAKER) (test 100 meq/L 98-107 qxjj=720) CO2 (BEAKER) (test 20 meq/L 22-29 ilbv=048) BLOOD UREA NITROGEN 22 mg/dL 7-21 (BEAKER) (test pfpz=699) CREATININE (BEAKER) (test 1.14 mg/dL 0.57-1.25 Specimen slightly pdkf=332) hemolyzed GLUCOSE RANDOM (BEAKER) 96 mg/dL 70-105 (test aehj=707) CALCIUM (BEAKER) (test 8.9 mg/dL 8.4-10.2 xzrd=996) AST (SGOT) (BEAKER) (test 30 U/L 5-34 Specimen slightly svkw=905) hemolyzed ALT (SGPT) (BEAKER) (test 8 U/L 6-55 Specimen slightly iypf=688) hemolyzed EGFR (BEAKER) (test 67 mL/min/1.73 sq m ESTIMATED GFR IS NOT awgj=3258) ACCURATE CREATININE CLEARANCE IN PREDICTING GLOMERULAR FILTRATION RATE. ESTIMATED GFR IS NOT APPLICABLE FOR DIALYSIS PATIENTS. Specimen slightly ictericPROTHROMBIN [id number] 06:15:00 Test Item Value Reference Range Comments PROTIME (BEAKER) (test wxlx=397) 22.7 seconds 11.7-14.7 INR (BEAKER) (test iwod=593) 2.0 <=5.9 RECOMMENDED COUMADIN/WARFARIN INR THERAPY RANGESSTANDARD DOSE: 2.0 - 3.0 Includes: PROPHYLAXIS forvenous thrombosis, systemic embolization; TREATMENT for venous thrombosis and/or pulmonary embolus.HIGH RISK: Target INR is 2.5-3.5 for patients with mechanical heart valves.VITAMIN B12 AND [id number] 16:39 :00 Test Item Value Reference Range Comments VITAMIN B12 (BEAKER) (test pzva=629) 829 pg/mL 213-816 FOLATE (BEAKER) (test tzzf=390) 18.9 ng/mL >=7.0 CALCIUM, [id number] 07:14:00 Test Item Value Reference Range Comments CALCIUM IONIZED (BEAKER) (test dwco=797) 1.08 mmol/L 1.12-1.27 PH, BLOOD (BEAKER) (test kwfy=3884) 7.41 COMPREHENSIVE METABOLIC [id number] 07:00:00 Test Item Value Reference Range Comments TOTAL PROTEIN (BEAKER) 5.0 gm/dL 6.0-8.3 (test npbj=003) ALBUMIN (BEAKER) (test 3.1 g/dL 3.5-5.0 jsvu=0096) ALKALINE PHOSPHATASE 65 U/L 40-150 (BEAKER) (test jidw=672) BILIRUBIN TOTAL (BEAKER) 2.5 mg/dL 0.2-1.2 (test dchg=692) SODIUM (BEAKER) (test 127 meq/L 136-145 nhob=859) POTASSIUM (BEAKER) (test 4.7 meq/L 3.5-5.1 ifxo=139) CHLORIDE (BEAKER) (test 99 meq/L 98-107 kbpa=575) CO2 (BEAKER) (test 23 meq/L 22-29 nsia=766) BLOOD UREA NITROGEN 21 mg/dL 7-21 (BEAKER) (test ohhw=755) CREATININE (BEAKER) (test 1.13 mg/dL 0.57-1.25 tzlg=244) GLUCOSE RANDOM (BEAKER) 92 mg/dL 70-105 (test qcjn=367) CALCIUM (BEAKER) (test 8.9 mg/dL 8.4-10.2 iyqm=207) AST (SGOT) (BEAKER) (test 18 U/L 5-34 qoir=394) ALT (SGPT) (BEAKER) (test 8 U/L 6-55 ncyc=795) EGFR (BEAKER) (test 68 mL/min/1.73 sq m ESTIMATED GFR IS NOT clpl=9230) ACCURATE CREATININE CLEARANCE IN PREDICTING GLOMERULAR FILTRATION RATE. ESTIMATED GFR IS NOT APPLICABLE FOR DIALYSIS PATIENTS. [id number] 06:37:00 Test Item Value Reference Range Comments PHOSPHORUS (BEAKER) (test vejr=926) 3.2 mg/dL 2.3-4.7 [id number] 06:37:00 Test Item Value Reference Range Comments MAGNESIUM (BEAKER) (test rhda=530) 1.9 mg/dL 1.6-2.6 CBC (HEMOGRAM ONLY)2018-01-03 06:25:00 Test Item Value Reference Range Comments WHITE BLOOD CELL COUNT (BEAKER) (test oeuc=699) 3.1 K/ L 3.5-10.5 RED BLOOD CELL COUNT (BEAKER) (test mfed=949) 2.31 M/ L 4.63-6.08 HEMOGLOBIN (BEAKER) (test fhwm=233) 7.4 GM/DL 13.7-17.5 HEMATOCRIT (BEAKER) (test wqsw=553) 21.6 % 40.1-51.0 MEAN CORPUSCULAR VOLUME (BEAKER) (test unuj=070) 93.5 fL 79.0-92.2 MEAN CORPUSCULAR HEMOGLOBIN (BEAKER) (test 32.0 pg 25.7-32.2 cjsp=403) MEAN CORPUSCULAR HEMOGLOBIN CONC (BEAKER) (test 34.3 GM/DL 32.3-36.5 jjux=602) RED CELL DISTRIBUTION WIDTH (BEAKER) (test 17.4 % 11.6-14.4 rwaj=532) PLATELET COUNT (BEAKER) (test uifp=606) 50 K/CU MM 150-450 MEAN PLATELET VOLUME (BEAKER) (test aytf=732) 10.5 fL 9.4-12.4 NUCLEATED RED BLOOD CELLS (BEAKER) (test 0 /100 WBC 0-0 bkhq=416) PROTHROMBIN [id number] 06:09:00 Test Item Value Reference Range Comments PROTIME (BEAKER) (test kpos=225) 22.2 seconds 11.7-14.7 INR (BEAKER) (test voyi=858) 2.0 <=5.9 RECOMMENDED COUMADIN/WARFARIN INR THERAPY RANGESSTANDARD DOSE: 2.0 - 3.0 Includes: PROPHYLAXIS forvenous thrombosis, systemic embolization; TREATMENT for venous thrombosis and/or pulmonary embolus.HIGH RISK: Target INR is 2.5-3.5 for patients with mechanical heart valves.[id number] 07:54:00 Test Item Value Reference Range Comments PHOSPHORUS (BEAKER) (test gkmb=326) 3.2 mg/dL 2.3-4.7 [id number] 07:54:00 Test Item Value Reference Range Comments MAGNESIUM (BEAKER) (test mfli=591) 1.4 mg/dL 1.6-2.6 COMPREHENSIVE METABOLIC [id number] 07:54:00 Test Item Value Reference Range Comments TOTAL PROTEIN (BEAKER) 5.3 gm/dL 6.0-8.3 (test wkqp=630) ALBUMIN (BEAKER) (test 3.4 g/dL 3.5-5.0 catm=8560) ALKALINE PHOSPHATASE 55 U/L 40-150 (BEAKER) (test uyqp=240) BILIRUBIN TOTAL (BEAKER) 3.9 mg/dL 0.2-1.2 (test zzfc=773) SODIUM (BEAKER) (test 131 meq/L 136-145 itcr=792) POTASSIUM (BEAKER) (test 4.3 meq/L 3.5-5.1 whnn=286) CHLORIDE (BEAKER) (test 101 meq/L 98-107 gfgo=971) CO2 (BEAKER) (test 23 meq/L 22-29 olni=020) BLOOD UREA NITROGEN 19 mg/dL 7-21 (BEAKER) (test trmw=023) CREATININE (BEAKER) (test 0.97 mg/dL 0.57-1.25 rduu=138) GLUCOSE RANDOM (BEAKER) 80 mg/dL 70-105 (test varw=651) CALCIUM (BEAKER) (test 9.4 mg/dL 8.4-10.2 vfxs=205) AST (SGOT) (BEAKER) (test 17 U/L 5-34 kmqp=018) ALT (SGPT) (BEAKER) (test 8 U/L 6-55 qfoc=425) EGFR (BEAKER) (test 81 mL/min/1.73 sq m ESTIMATED GFR IS NOT covr=3493) ACCURATE CREATININE CLEARANCE IN PREDICTING GLOMERULAR FILTRATION RATE. ESTIMATED GFR IS NOT APPLICABLE FOR DIALYSIS PATIENTS. Specimen slightly ictericCBC W/PLT COUNT & AUTO [id number] 07:14 :00 Test Item Value Reference Range Comments WHITE BLOOD CELL COUNT (BEAKER) (test mzbl=937) 2.9 K/ L 3.5-10.5 RED BLOOD CELL COUNT (BEAKER) (test hnsx=592) 2.55 M/ L 4.63-6.08 HEMOGLOBIN (BEAKER) (test kess=521) 8.1 GM/DL 13.7-17.5 HEMATOCRIT (BEAKER) (test hiyo=486) 23.7 % 40.1-51.0 MEAN CORPUSCULAR VOLUME (BEAKER) (test qjgl=069) 92.9 fL 79.0-92.2 MEAN CORPUSCULAR HEMOGLOBIN (BEAKER) (test 31.8 pg 25.7-32.2 pqmg=624) MEAN CORPUSCULAR HEMOGLOBIN CONC (BEAKER) (test 34.2 GM/DL 32.3-36.5 umiv=523) RED CELL DISTRIBUTION WIDTH (BEAKER) (test 17.5 % 11.6-14.4 dona=703) PLATELET COUNT (BEAKER) (test xcac=477) 50 K/CU MM 150-450 MEAN PLATELET VOLUME (BEAKER) (test oirc=265) 9.5 fL 9.4-12.4 NUCLEATED RED BLOOD CELLS (BEAKER) (test 0 /100 WBC 0-0 nqpm=420) NEUTROPHILS RELATIVE PERCENT (BEAKER) (test 57 % ngmj=452) LYMPHOCYTES RELATIVE PERCENT (BEAKER) (test 17 % zwfk=853) MONOCYTES RELATIVE PERCENT (BEAKER) (test 18 % mqgw=279) EOSINOPHILS RELATIVE PERCENT (BEAKER) (test 7 % lqfn=238) BASOPHILS RELATIVE PERCENT (BEAKER) (test 0 % wjjt=230) NEUTROPHILS ABSOLUTE COUNT (BEAKER) (test 1.65 K/ L 1.78-5.38 tmkk=072) LYMPHOCYTES ABSOLUTE COUNT (BEAKER) (test 0.49 K/ L 1.32-3.57 iahj=011) MONOCYTES ABSOLUTE COUNT (BEAKER) (test chyv=403) 0.51 K/ L 0.30-0.82 EOSINOPHILS ABSOLUTE COUNT (BEAKER) (test 0.20 K/ L 0.04-0.54 ichs=599) BASOPHILS ABSOLUTE COUNT (BEAKER) (test hikd=916) 0.01 K/ L 0.01-0.08 IMMATURE GRANULOCYTES-RELATIVE PERCENT (BEAKER) 1 % 0-1 (test jxey=7274) (MANUAL DIFFERENTIAL)2018-01-02 07:14:00 Test Item Value Reference Range Comments TOTAL COUNTED (BEAKER) (test gtoe=0369) CALCIUM, [id number] 07:04:00 Test Item Value Reference Range Comments CALCIUM IONIZED (BEAKER) (test daam=643) 1.07 mmol/L 1.12-1.27 PH, BLOOD (BEAKER) (test lfaw=3714) 7.49 PROTHROMBIN [id number] 06:42:00 Test Item Value Reference Range Comments PROTIME (BEAKER) (test cfgr=224) 24.6 seconds 11.7-14.7 INR (BEAKER) (test lnpn=949) 2.2 <=5.9 RECOMMENDED COUMADIN/WARFARIN INR THERAPY RANGESSTANDARD DOSE: 2.0 - 3.0 Includes: PROPHYLAXIS forvenous thrombosis, systemic embolization; TREATMENT for venous thrombosis and/or pulmonary embolus.HIGH RISK: Target INR is 2.5-3.5 for patients with mechanical heart valves.CYTOMEGALOVIRUS ANTIBODY, [id number] 14:58:00 Test Item Value Reference Range Comments CYTOMEGALOVIRUS IGG ANTIBODY (BEAKER) (test Positive xhgj=980) CYTOMEGALOVIRUS ANTIBODY, [id number] 14:58:00 Test Item Value Reference Range Comments CYTOMEGALOVIRUS IGM ANTIBODY (BEAKER) (test Negative vmbo=943) EBV-VCA ANTIBODY, [id number] 14:58:00 Test Item Value Reference Range Comments MARCELLUS-DAVIS VCA IGG (BEAKER) (test lhap=166) Positive EBV-VCA ANTIBODY, [id number] 14:58:00 Test Item Value Reference Range Comments MARCELLUS-DAVIS VCA IGM (BEAKER) (test hlqw=894) Negative BODY FLUID CELL COUNT WITH [id number] 14:27:00 Test Item Value Reference Range Comments APPEARANCE FLUID (BEAKER) (test ivhl=960) Slightly Hazy Clear COLOR FLUID (BEAKER) (test fodk=022) Yellow Colorless, Straw RBC FLUID (BEAKER) (test kaga=392) 378 /cu mm <=1 ADJUSTED WBC FLUID (BEAKER) (test vvep=0651) 84 /cu mm <=5 LINING CELLS (BEAKER) (test obbh=0891) 17 /cu mm <=1 NEUTROPHILS FLUID (BEAKER) (test dcpz=7860) 1 % LYMPHS FLUID (BEAKER) (test uhav=791) 14 % MONO/MACROPHAGE FLUID (BEAKER) (test 85 % twax=404) EOSINOPHILS FLUID (BEAKER) (test mbqg=227) 0 % BASO FLUID (BEAKER) (test bnhy=087) 0 % CONTAINER BODY FLUID (BEAKER) (test EDTA Tube cqmz=4225) U/S, [id number] 11:17:00Reason for exam:->ascitesFINAL REPORT Ultrasound guided paracentesis, 01/01/2018. Clinical History:Ascites. Sedation: None. Service Shop Foreman: Paul Butler MD Data Compiler: None. Estimated Blood Loss: < 1 cc. [...] was achieved with 1% lidocaine, a 5 Wolof one-step catheter was advanced into the peritoneal cavity under ultrasound guidance. After completion of drainage, the catheter was removed. There was no evidence ofcomplication. Patient Disposition: The patient was transferred to the inpatient unit from the ultrasound department after the paracentesis, in good condition. Impression:Successful ultrasound guided paracentesis. Signed: Paul Butler MDReport Verified Date/Time: 01/01/2018 11:17:26 Reading Location: [address] Ultrasound Reading Room CBC W/PLT COUNT & AUTO [id number] 08:55:00 Test Item Value Reference Range Comments WHITE BLOOD CELL COUNT (BEAKER) (test fwxy=208) 2.6 K/ L 3.5-10.5 RED BLOOD CELL COUNT (BEAKER) (test ssub=738) 2.17 M/ L 4.63-6.08 HEMOGLOBIN (BEAKER) (test efsq=998) 6.9 GM/DL 13.7-17.5 HEMATOCRIT (BEAKER) (test cxxc=807) 20.6 % 40.1-51.0 MEAN CORPUSCULAR VOLUME (BEAKER) (test gjbd=301) 94.9 fL 79.0-92.2 MEAN CORPUSCULAR HEMOGLOBIN (BEAKER) (test 31.8 pg 25.7-32.2 rohe=549) MEAN CORPUSCULAR HEMOGLOBIN CONC (BEAKER) (test 33.5 GM/DL 32.3-36.5 zycn=687) RED CELL DISTRIBUTION WIDTH (BEAKER) (test 17.0 % 11.6-14.4 zmah=204) PLATELET COUNT (BEAKER) (test jtqd=400) 43 K/CU MM 150-450 MEAN PLATELET VOLUME (BEAKER) (test yjbf=392) 9.3 fL 9.4-12.4 NUCLEATED RED BLOOD CELLS (BEAKER) (test 0 /100 WBC 0-0 kxlt=776) NEUTROPHILS RELATIVE PERCENT (BEAKER) (test 62 % asbt=834) LYMPHOCYTES RELATIVE PERCENT (BEAKER) (test 13 % nmrd=050) MONOCYTES RELATIVE PERCENT (BEAKER) (test 18 % hylj=500) EOSINOPHILS RELATIVE PERCENT (BEAKER) (test 6 % mtuh=131) BASOPHILS RELATIVE PERCENT (BEAKER) (test 0 % qopq=066) NEUTROPHILS ABSOLUTE COUNT (BEAKER) (test 1.58 K/ L 1.78-5.38 kunr=048) LYMPHOCYTES ABSOLUTE COUNT (BEAKER) (test 0.33 K/ L 1.32-3.57 mbdl=860) MONOCYTES ABSOLUTE COUNT (BEAKER) (test xdrz=927) 0.46 K/ L 0.30-0.82 EOSINOPHILS ABSOLUTE COUNT (BEAKER) (test 0.15 K/ L 0.04-0.54 rfud=811) BASOPHILS ABSOLUTE COUNT (BEAKER) (test sczt=147) 0.01 K/ L 0.01-0.08 IMMATURE GRANULOCYTES-RELATIVE PERCENT (BEAKER) 1 % 0-1 (test zhvp=9571) (MANUAL DIFFERENTIAL)2018-01-01 08:55:00 Test Item Value Reference Range Comments TOTAL COUNTED (BEAKER) (test qhzy=4962) CALCIUM, [id number] 07:43:00 Test Item Value Reference Range Comments CALCIUM IONIZED (BEAKER) (test uuge=122) 1.14 mmol/L 1.12-1.27 PH, BLOOD (BEAKER) (test dxlr=5821) 7.52 [id number] 06:11:00 Test Item Value Reference Range Comments PHOSPHORUS (BEAKER) (test aeof=967) 2.5 mg/dL 2.3-4.7 [id number] 06:11:00 Test Item Value Reference Range Comments MAGNESIUM (BEAKER) (test lylg=076) 1.7 mg/dL 1.6-2.6 COMPREHENSIVE METABOLIC [id number] 06:11:00 Test Item Value Reference Range Comments TOTAL PROTEIN (BEAKER) 5.6 gm/dL 6.0-8.3 (test xtpb=274) ALBUMIN (BEAKER) (test 3.6 g/dL 3.5-5.0 zimu=0515) ALKALINE PHOSPHATASE 68 U/L 40-150 (BEAKER) (test kpje=387) BILIRUBIN TOTAL (BEAKER) 2.7 mg/dL 0.2-1.2 (test yacm=954) SODIUM (BEAKER) (test 132 meq/L 136-145 uywh=505) POTASSIUM (BEAKER) (test 4.9 meq/L 3.5-5.1 duwt=021) CHLORIDE (BEAKER) (test 102 meq/L 98-107 xelr=496) CO2 (BEAKER) (test 24 meq/L 22-29 tgyp=494) BLOOD UREA NITROGEN 20 mg/dL 7-21 (BEAKER) (test yexi=238) CREATININE (BEAKER) (test 1.17 mg/dL 0.57-1.25 pccn=025) GLUCOSE RANDOM (BEAKER) 92 mg/dL 70-105 (test kpma=277) CALCIUM (BEAKER) (test 9.7 mg/dL 8.4-10.2 tzqe=689) AST (SGOT) (BEAKER) (test 16 U/L 5-34 lzdt=137) ALT (SGPT) (BEAKER) (test 8 U/L 6-55 ixkr=406) EGFR (BEAKER) (test 65 mL/min/1.73 sq m ESTIMATED GFR IS NOT hcrs=0823) ACCURATE CREATININE CLEARANCE IN PREDICTING GLOMERULAR FILTRATION RATE. ESTIMATED GFR IS NOT APPLICABLE FOR DIALYSIS PATIENTS. Specimen slightly ictericPROTHROMBIN TIME/[id number] 06:00:00 Test Item Value Reference Range Comments PROTIME (BEAKER) (test ogzg=924) 24.0 seconds 11.7-14.7 INR (BEAKER) (test nhym=116) 2.2 <=5.9 RECOMMENDED COUMADIN/WARFARIN INR THERAPY RANGESSTANDARD DOSE: 2.0 - 3.0 Includes: PROPHYLAXIS forvenous thrombosis, systemic embolization; TREATMENT for venous thrombosis and/or pulmonary embolus.HIGH RISK: Target INR is 2.5-3.5 for patients with mechanical heart valves.CT, CHEST, WITHOUT [id number] 19:24:00FINAL REPORT HISTORY: Lung nodule, >=1cm COMPARISON [...] cirrhosis, splenomegaly and upper abdominal ascites. Signed: Sarna, Achal MDReport Verified Date/Time: 12/31/2017 19:24:12 Reading Location: [facility] [id number] Consult Reading Room 07: 24 PMPERIPHERAL BLOOD SMEAR - HOLD [id number] 19:18:00 Test Item Value Reference Range Comments PERIPHERAL SMEAR SAVE (BEAKER) prepared and saved smear, (test pyym=6103) 12/31/17 RETICULOCYTE [id number] 19:14:00 Test Item Value Reference Range Comments RETICULOCYTE COUNT PCT (BEAKER) (test xyva=655) 3.5 % 0.5-1.8 LACTATE DEHYDROGENASE (LDH)2017-12-31 17:47:00 Test Item Value Reference Range Comments LACTATE DEHYDROGENASE (BEAKER) (test atky=921) 112 U/L 125-220 BLOOD GAS, [id number] 17:27:00 Test Item Value Reference Range Comments PH ARTERIAL (BEAKER) (test oypt=812) 7.45 7.35-7.45 PCO2 ARTERIAL (BEAKER) (test hgah=564) 36 mmHg 35-45 PO2 ARTERIAL (BEAKER) (test fque=005) 76 mmHg 80-90 O2 SATURATION ARTERIAL (BEAKER) (test utze=839) 96.1 % 96.0-97.0 HCO3 ARTERIAL (BEAKER) (test gbdp=267) 24 mmol/L 21-29 BASE EXCESS ARTERIAL (BEAKER) (test suaq=230) 0.2 mmol/L -2.0-3.0 PATIENT TEMPERATURE (BEAKER) (test nlcy=6672) 36.4 C FIO2 (BEAKER) (test vaqx=8398) 21.0 % MYOCARD IMAGING, MULTI, PHARM, [id number] 15:12:00FINAL REPORT PROCEDURE: Rest/Stress MYOCARDIAL PERFUSION SPECT with regadenoson\XA9\ CPT CODE: 56420 INDICATION: Liver transplant evaluation HISTORY: Cardiac risk [...] Normal extracardiac tracer distribution. 6. No previous [facility] study for comparison. NONINVASIVE RISK STRATIFICATION: The above findings are considered low risk (<1% annual mortality rate) based on the following criterion:- Normal orsmall myocardial perfusion defect at rest or with stress(JACC. 2012;59(9):857-81.) Signed: Quinten Napier Verified Date/Time: 12/31/2017 15:12:03 Reading Location: [address] Reading Room BILIRUBIN, [id number] 14:10:00 Test Item Value Reference Range Comments BILIRUBIN DIRECT (BEAKER) (test czar=004) 1.6 mg/dL 0.1-0.5 HEMOGLOBIN AND [id number] 13:22:00 Test Item Value Reference Range Comments HEMOGLOBIN (BEAKER) (test izhc=351) 7.3 GM/DL 13.7-17.5 HEMATOCRIT (BEAKER) (test dxcd=795) 21.9 % 40.1-51.0 CBC W/PLT COUNT & AUTO [id number] 11:06:00 Test Item Value Reference Range Comments WHITE BLOOD CELL COUNT (BEAKER) (test iyhl=463) 2.2 K/ L 3.5-10.5 RED BLOOD CELL COUNT (BEAKER) (test lwcm=253) 2.07 M/ L 4.63-6.08 HEMOGLOBIN (BEAKER) (test bvos=081) 6.8 GM/DL 13.7-17.5 HEMATOCRIT (BEAKER) (test npto=072) 19.6 % 40.1-51.0 MEAN CORPUSCULAR VOLUME (BEAKER) (test fcds=439) 94.7 fL 79.0-92.2 MEAN CORPUSCULAR HEMOGLOBIN (BEAKER) (test 32.9 pg 25.7-32.2 jjkk=761) MEAN CORPUSCULAR HEMOGLOBIN CONC (BEAKER) (test 34.7 GM/DL 32.3-36.5 xoqh=501) RED CELL DISTRIBUTION WIDTH (BEAKER) (test 16.9 % 11.6-14.4 nguf=289) PLATELET COUNT (BEAKER) (test olqr=167) 47 K/CU MM 150-450 MEAN PLATELET VOLUME (BEAKER) (test bgqs=981) 9.7 fL 9.4-12.4 NUCLEATED RED BLOOD CELLS (BEAKER) (test 0 /100 WBC 0-0 xyce=192) NEUTROPHILS RELATIVE PERCENT (BEAKER) (test 54 % zqan=218) LYMPHOCYTES RELATIVE PERCENT (BEAKER) (test 17 % fydn=380) MONOCYTES RELATIVE PERCENT (BEAKER) (test 21 % czqt=541) EOSINOPHILS RELATIVE PERCENT (BEAKER) (test 8 % tquo=849) BASOPHILS RELATIVE PERCENT (BEAKER) (test 1 % kvee=248) NEUTROPHILS ABSOLUTE COUNT (BEAKER) (test 1.17 K/ L 1.78-5.38 rlww=558) LYMPHOCYTES ABSOLUTE COUNT (BEAKER) (test 0.36 K/ L 1.32-3.57 wlxl=678) MONOCYTES ABSOLUTE COUNT (BEAKER) (test vbul=413) 0.45 K/ L 0.30-0.82 EOSINOPHILS ABSOLUTE COUNT (BEAKER) (test 0.17 K/ L 0.04-0.54 vxdr=836) BASOPHILS ABSOLUTE COUNT (BEAKER) (test yjag=846) 0.01 K/ L 0.01-0.08 IMMATURE GRANULOCYTES-RELATIVE PERCENT (BEAKER) 1 % 0-1 (test xikh=6920) (MANUAL DIFFERENTIAL)2017-12-31 11:06:00 Test Item Value Reference Range Comments TOTAL COUNTED (BEAKER) (test tduk=9549) [id number] 08:37:00 Test Item Value Reference Range Comments PROTIME (BEAKER) (test dcvo=715) 24.0 seconds 11.7-14.7 INR (BEAKER) (test harg=427) 2.2 <=5.9 PARTIAL THROMBOPLASTIN TIME (BEAKER) (test 55.2 seconds 22.5-36.0 qhlx=735) RECOMMENDED COUMADIN/WARFARIN INR THERAPY RANGESSTANDARD DOSE: 2.0 - 3.0 Includes: PROPHYLAXIS forvenous thrombosis, systemic embolization; TREATMENT for venous thrombosis and/or pulmonary embolus.HIGH RISK: Target INR is 2.5-3.5 for patients with mechanical heart valves.COMPREHENSIVE METABOLIC [id number] 06:37:00 Test Item Value Reference Range Comments TOTAL PROTEIN (BEAKER) 5.7 gm/dL 6.0-8.3 (test veop=531) ALBUMIN (BEAKER) (test 3.7 g/dL 3.5-5.0 namj=1543) ALKALINE PHOSPHATASE 70 U/L 40-150 (BEAKER) (test dozm=139) BILIRUBIN TOTAL (BEAKER) 2.6 mg/dL 0.2-1.2 (test zxqo=485) SODIUM (BEAKER) (test 130 meq/L 136-145 bmdg=624) POTASSIUM (BEAKER) (test 5.2 meq/L 3.5-5.1 kdyr=062) CHLORIDE (BEAKER) (test 100 meq/L 98-107 fwcg=646) CO2 (BEAKER) (test 25 meq/L 22-29 cyih=477) BLOOD UREA NITROGEN 20 mg/dL 7-21 (BEAKER) (test xmsf=453) CREATININE (BEAKER) (test 1.08 mg/dL 0.57-1.25 ksak=115) GLUCOSE RANDOM (BEAKER) 91 mg/dL 70-105 (test koxx=720) CALCIUM (BEAKER) (test 9.6 mg/dL 8.4-10.2 piwq=168) AST (SGOT) (BEAKER) (test 16 U/L 5-34 smja=141) ALT (SGPT) (BEAKER) (test 6 U/L 6-55 ehmc=286) EGFR (BEAKER) (test 72 mL/min/1.73 sq m ESTIMATED GFR IS NOT lnnj=3875) ACCURATE CREATININE CLEARANCE IN PREDICTING GLOMERULAR FILTRATION RATE. ESTIMATED GFR IS NOT APPLICABLE FOR DIALYSIS PATIENTS. Specimen slightly [id number] 06:01:00 Test Item Value Reference Range Comments RPR SCREEN (BEAKER) (test jdmq=248) Nonreactive Nonreactive CRYPTOCOCCAL [id number] 05:59:00 Test Item Value Reference Range Comments CRYPTOCOCCAL ANTIGEN, SERUM (BEAKER) (test Negative Negative, Interference jaay=1455) RAD, MANDIBLE, MIN 4 [id number] 01:37:00Reason for exam:->liver transplant evalShould this be [...] scattered sclerotic calvarial foci. Signed: Slick Barcenas MDRep[facility] Verified Date/Time: 12/31/2017 01:37:57 Reading Location: [address] Reading Room Electronically signed by: SLICK BARCENAS M.D. on 04/2018 01:37 AMRAD, CHEST, 2 [id number] 23:32:00Reason for exam:-> liver transplant evalShould this [...] MDReport Verified Date/Time: 12/30/2017 23:32:31 Reading Location: [address] Reading Room HEMOGLOBIN [id number] 22:54:00 Test Item Value Reference Range Comments HEMOGLOBIN A1C (BEAKER) (test xewr=393) 4.1 % 4.3-6.1 HEPATITIS B SURFACE [id number] 16:31:00 Test Item Value Reference Range Comments HEPATITIS B SURFACE ANTIBODY (BEAKER) (test < mIU/mL <8.0 pbgz=106) HEPATITIS B SURFACE [id number] 16:29:00 Test Item Value Reference Range Comments HEPATITIS B SURFACE ANTIGEN (2) (BEAKER) (test Nonreactive Nonreactive ltid=3055) HEPATITIS B CORE ANTIBODY, [id number] 16:29:00 Test Item Value Reference Range Comments HEPATITIS B CORE IGM ANTIBODY (BEAKER) (test Nonreactive Nonreactive hxmg=153) HEPATITIS A ANTIBODY, [id number] 16:29:00 Test Item Value Reference Range Comments HEPATITIS A IGM ANTIBODY (BEAKER) (test Nonreactive Nonreactive jlkz=193) HEPATITIS B CORE ANTIBODY, [id number] 16:29:00 Test Item Value Reference Range Comments HEPATITIS B CORE TOTAL ANTIBODY (BEAKER) (test Nonreactive Nonreactive dtjz=147) [id number] 16:26:00 Test Item Value Reference Range Comments T4 TOTAL (BEAKER) (test fnbt=424) 3.5 ug/dL 4.9-11.7 [id number] 16:26:00 Test Item Value Reference Range Comments T3 TOTAL (BEAKER) (test skio=287) 42 ng/dL 48-159 [id number] 16:24:00 Test Item Value Reference Range Comments FERRITIN (BEAKER) (test tjrj=663) 1460 ng/mL 5-275 VITAMIN D, [id number] 16:24:00 Test Item Value Reference Range Comments VITAMIN D 25-OH (BEAKER) (test twsm=7834) 6.9 ng/mL 6.6-49.9 Effective 08/06/2017: Reference Range ChangeNew: 6.6-49.9 ng/mL Previous: 13.0 -47.8 ng/mLRecommended Vitamin D Target Range: 30.0-40.0 ng/[id number] 16: 24:00 Test Item Value Reference Range Comments THYROID STIMULATING HORMONE (BEAKER) (test 1.55 uIU/mL 0.35-4.94 uhrw=158) CARCINOEMBRYONIC ANTIGEN (CEA)2017-12-30 16:24:00 Test Item Value Reference Range Comments CARCINOEMBRYONIC ANTIGEN (BEAKER) (test dzez=862) 3.0 ng/mL 0.0-5.0 [id number] 16:23:00 Test Item Value Reference Range Comments PROSTATE SPECIFIC ANTIGEN (BEAKER) (test aewv=417) 0.1 ng/mL 0.0-4.0 HIV-1 ANTIGEN WITH HIV-1/2 [id number] 16:23:00 Test Item Value Reference Range Comments HIV-1 ANTIGEN WITH HIV 1\T\2 ANTIBODY (2) Nonreactive Nonreactive (BEAKER) (test plbg=3194) HEPATITIS C [id number] 16:23:00 Test Item Value Reference Range Comments HEPATITIS C ANTIBODY (BEAKER) (test xagt=504) Nonreactive Nonreactive LIPID [id number] 16:06:00 Test Item Value Reference Range Comments TRIGLYCERIDES (BEAKER) (test bycn=318) 38 mg/dL CHOLESTEROL (BEAKER) (test yjlc=081) 51 mg/dL HDL CHOLESTEROL (BEAKER) (test qmvt=779) 10 mg/dL LDL CHOLESTEROL CALCULATED (BEAKER) (test lmyh=350) 33 mg/dL Triglyceride Reference Range: Low Risk [...] Value Reference Range Comments IRON (BEAKER) (test lcko=970) 90 ug/dL 40-160 TOTAL IRON BINDING CAPACITY (BEAKER) (test 85 ug/dL 250-450 bqum=329) IRON % SATURATION (2) (BEAKER) (test ktbx=8248) 106 % 20-55 [id number] 16:04:00 Test Item Value Reference Range Comments TRANSFERRIN (BEAKER) (test xfoe=344) 65 mg/dL 174-382 Specimen slightly ictericURIC [id number] 16:02:00 Test Item Value Reference Range Comments URIC ACID (BEAKER) (test bebt=340) 8.5 mg/dL 2.6-7.2 Specimen slightly [id number] 15:50:00 Test Item Value Reference Range Comments FIBRINOGEN LEVEL (BEAKER) (test ofsq=856) 161 mg/dl 225-434 BODY FLUID CULTURE + GRAM [id number] 11:45:00 Test Item Value Reference Range Comments CULTURE (BEAKER) (test gxms=9284) No growth GRAM STAIN RESULT (BEAKER) (test No WBCs zulw=3013) GRAM STAIN RESULT (BEAKER) (test No organisms seen ncru=04579) CBC W/PLT COUNT & AUTO [id number] 08:05:00 Test Item Value Reference Range Comments WHITE BLOOD CELL COUNT (BEAKER) (test plxx=044) 2.0 K/ L 3.5-10.5 RED BLOOD CELL COUNT (BEAKER) (test izgk=363) 2.20 M/ L 4.63-6.08 HEMOGLOBIN (BEAKER) (test huev=214) 7.1 GM/DL 13.7-17.5 HEMATOCRIT (BEAKER) (test udag=914) 20.8 % 40.1-51.0 MEAN CORPUSCULAR VOLUME (BEAKER) (test flea=322) 94.5 fL 79.0-92.2 MEAN CORPUSCULAR HEMOGLOBIN (BEAKER) (test 32.3 pg 25.7-32.2 urxm=667) MEAN CORPUSCULAR HEMOGLOBIN CONC (BEAKER) (test 34.1 GM/DL 32.3-36.5 qitv=100) RED CELL DISTRIBUTION WIDTH (BEAKER) (test 17.0 % 11.6-14.4 wejl=122) PLATELET COUNT (BEAKER) (test veor=910) 52 K/CU MM 150-450 MEAN PLATELET VOLUME (BEAKER) (test ayhy=951) 10.7 fL 9.4-12.4 NUCLEATED RED BLOOD CELLS (BEAKER) (test 0 /100 WBC 0-0 yphy=652) NEUTROPHILS RELATIVE PERCENT (BEAKER) (test 55 % ccnn=478) LYMPHOCYTES RELATIVE PERCENT (BEAKER) (test 16 % pzfg=608) MONOCYTES RELATIVE PERCENT (BEAKER) (test 20 % wqgn=355) EOSINOPHILS RELATIVE PERCENT (BEAKER) (test 8 % jtld=254) BASOPHILS RELATIVE PERCENT (BEAKER) (test 1 % elku=294) NEUTROPHILS ABSOLUTE COUNT (BEAKER) (test 1.10 K/ L 1.78-5.38 znjs=981) LYMPHOCYTES ABSOLUTE COUNT (BEAKER) (test 0.32 K/ L 1.32-3.57 iklj=861) MONOCYTES ABSOLUTE COUNT (BEAKER) (test xcii=536) 0.40 K/ L 0.30-0.82 EOSINOPHILS ABSOLUTE COUNT (BEAKER) (test 0.16 K/ L 0.04-0.54 ybft=061) BASOPHILS ABSOLUTE COUNT (BEAKER) (test ltdh=413) 0.01 K/ L 0.01-0.08 IMMATURE GRANULOCYTES-RELATIVE PERCENT (BEAKER) 1 % 0-1 (test qhxa=9388) (MANUAL DIFFERENTIAL)2017-12-30 08:05:00 Test Item Value Reference Range Comments TOTAL COUNTED (BEAKER) (test pmvt=2584) URINALYSIS W/ [id number] 06:46:00 Test Item Value Reference Range Comments COLOR (BEAKER) (test kcfo=419) Yellow CLARITY (BEAKER) (test hswh=740) Clear SPECIFIC GRAVITY UA (BEAKER) (test ojnd=891) 1.008 1.001-1.035 PH UA (BEAKER) (test mzuf=207) 6.0 5.0-8.0 PROTEIN UA (BEAKER) (test fvaf=380) Negative Negative GLUCOSE UA (BEAKER) (test gwfc=159) Negative Negative KETONES UA (BEAKER) (test frgf=344) Negative Negative BILIRUBIN UA (BEAKER) (test pxec=112) Negative Negative BLOOD UA (BEAKER) (test ifhc=610) Negative Negative NITRITE UA (BEAKER) (test iuhs=865) Negative Negative LEUKOCYTE ESTERASE UA (BEAKER) (test nvsp=795) Negative Negative UROBILINOGEN UA (BEAKER) (test znbz=220) 0.2 mg/dL 0.2-1.0 RBC UA (BEAKER) (test dnav=470) 0 /HPF WBC UA (BEAKER) (test miap=738) 0 /HPF HYALINE CASTS (BEAKER) (test sgje=184) 5 /LPF SOURCE(BEAKER) (test qbze=6179) Urine, Voided SODIUM, RANDOM [id number] 06:35:00 Test Item Value Reference Range Comments SODIUM URINE (BEAKER) (test lyiv=646) < meq/L Reference Range: No NormalsPROTEIN, RANDOM [id number] 06:35:00 Test Item Value Reference Range Comments PROTEIN, URINE (BEAKER) (test bpri=2302) < mg/dL 0-14 [id number] 06:21:00 Test Item Value Reference Range Comments MAGNESIUM (BEAKER) (test 1.8 mg/dL 1.6-2.6 Specimen slightly hemolyzed kacx=030) [id number] 06:21:00 Test Item Value Reference Range Comments PHOSPHORUS (BEAKER) (test 2.9 mg/dL 2.3-4.7 Specimen slightly hemolyzed kasc=108) COMPREHENSIVE METABOLIC [id number] 06:21:00 Test Item Value Reference Range Comments TOTAL PROTEIN (BEAKER) 5.6 gm/dL 6.0-8.3 Specimen slightly (test lnyb=534) hemolyzed ALBUMIN (BEAKER) (test 3.5 g/dL 3.5-5.0 Specimen slightly spgq=2260) hemolyzed ALKALINE PHOSPHATASE 75 U/L 40-150 (BEAKER) (test lasn=987) BILIRUBIN TOTAL (BEAKER) 3.0 mg/dL 0.2-1.2 Specimen slightly (test vbew=081) hemolyzed SODIUM (BEAKER) (test 127 meq/L 136-145 xheo=330) POTASSIUM (BEAKER) (test 5.2 meq/L 3.5-5.1 Specimen slightly ptiz=305) hemolyzed CHLORIDE (BEAKER) (test 97 meq/L 98-107 uhds=361) CO2 (BEAKER) (test 24 meq/L 22-29 xjzr=212) BLOOD UREA NITROGEN 22 mg/dL 7-21 (BEAKER) (test dieq=633) CREATININE (BEAKER) (test 1.11 mg/dL 0.57-1.25 Specimen slightly sbvh=786) hemolyzed GLUCOSE RANDOM (BEAKER) 94 mg/dL 70-105 (test aebk=049) CALCIUM (BEAKER) (test 9.4 mg/dL 8.4-10.2 htqv=745) AST (SGOT) (BEAKER) (test 22 U/L 5-34 Specimen slightly skcv=349) hemolyzed ALT (SGPT) (BEAKER) (test 7 U/L 6-55 Specimen slightly uwxf=801) hemolyzed EGFR (BEAKER) (test 70 mL/min/1.73 sq m ESTIMATED GFR IS NOT mizi=8195) ACCURATE CREATININE CLEARANCE IN PREDICTING GLOMERULAR FILTRATION RATE. ESTIMATED GFR IS NOT APPLICABLE FOR DIALYSIS PATIENTS. Specimen slightly ictericCREATININE, RANDOM [id number] 06:19:00 Test Item Value Reference Range Comments CREATININE URINE (BEAKER) (test ovci=342) 60.6 mg/dL Reference Range: No [id number] 13:43:00 Test Item Value Reference Range Comments ETHANOL (BEAKER) (test bjpo=561) < mg/dL <=10 COMPREHENSIVE METABOLIC [id number] 08:23:00 Test Item Value Reference Range Comments TOTAL PROTEIN (BEAKER) 5.5 gm/dL 6.0-8.3 (test mpai=020) ALBUMIN (BEAKER) (test 3.3 g/dL 3.5-5.0 zkii=4331) ALKALINE PHOSPHATASE 85 U/L 40-150 (BEAKER) (test lkuw=611) BILIRUBIN TOTAL (BEAKER) 3.8 mg/dL 0.2-1.2 (test jwkm=033) SODIUM (BEAKER) (test 125 meq/L 136-145 wvtx=547) POTASSIUM (BEAKER) (test 4.7 meq/L 3.5-5.1 tsya=970) CHLORIDE (BEAKER) (test 96 meq/L 98-107 mtgp=612) CO2 (BEAKER) (test 21 meq/L 22-29 fdyb=467) BLOOD UREA NITROGEN 22 mg/dL 7-21 (BEAKER) (test inea=179) CREATININE (BEAKER) (test 1.26 mg/dL 0.57-1.25 fmdu=249) GLUCOSE RANDOM (BEAKER) 95 mg/dL 70-105 (test jiek=993) CALCIUM (BEAKER) (test 9.1 mg/dL 8.4-10.2 rfez=390) AST (SGOT) (BEAKER) (test 20 U/L 5-34 nyhm=536) ALT (SGPT) (BEAKER) (test 8 U/L 6-55 irdm=954) EGFR (BEAKER) (test 60 mL/min/1.73 sq m ESTIMATED GFR IS NOT edio=1886) ACCURATE CREATININE CLEARANCE IN PREDICTING GLOMERULAR FILTRATION RATE. ESTIMATED GFR IS NOT APPLICABLE FOR DIALYSIS PATIENTS. Specimen slightly ictericCBC W/PLT COUNT & AUTO [id number] 07:17 :00 Test Item Value Reference Range Comments WHITE BLOOD CELL COUNT (BEAKER) (test eczy=337) 2.8 K/ L 3.5-10.5 RED BLOOD CELL COUNT (BEAKER) (test suet=842) 2.28 M/ L 4.63-6.08 HEMOGLOBIN (BEAKER) (test reqh=665) 7.3 GM/DL 13.7-17.5 HEMATOCRIT (BEAKER) (test fqct=471) 21.4 % 40.1-51.0 MEAN CORPUSCULAR VOLUME (BEAKER) (test iynr=682) 93.9 fL 79.0-92.2 MEAN CORPUSCULAR HEMOGLOBIN (BEAKER) (test 32.0 pg 25.7-32.2 sgau=194) MEAN CORPUSCULAR HEMOGLOBIN CONC (BEAKER) (test 34.1 GM/DL 32.3-36.5 sqtb=478) RED CELL DISTRIBUTION WIDTH (BEAKER) (test 16.9 % 11.6-14.4 fxpw=037) PLATELET COUNT (BEAKER) (test skqx=097) 52 K/CU MM 150-450 MEAN PLATELET VOLUME (BEAKER) (test tnou=519) 9.8 fL 9.4-12.4 NUCLEATED RED BLOOD CELLS (BEAKER) (test 0 /100 WBC 0-0 hskd=204) NEUTROPHILS RELATIVE PERCENT (BEAKER) (test 61 % encu=518) LYMPHOCYTES RELATIVE PERCENT (BEAKER) (test 14 % qwcr=750) MONOCYTES RELATIVE PERCENT (BEAKER) (test 18 % gsns=679) EOSINOPHILS RELATIVE PERCENT (BEAKER) (test 7 % kpch=591) BASOPHILS RELATIVE PERCENT (BEAKER) (test 0 % vvsu=762) NEUTROPHILS ABSOLUTE COUNT (BEAKER) (test 1.69 K/ L 1.78-5.38 pkys=223) LYMPHOCYTES ABSOLUTE COUNT (BEAKER) (test 0.38 K/ L 1.32-3.57 hvhd=002) MONOCYTES ABSOLUTE COUNT (BEAKER) (test wqfy=363) 0.51 K/ L 0.30-0.82 EOSINOPHILS ABSOLUTE COUNT (BEAKER) (test 0.18 K/ L 0.04-0.54 ensh=675) BASOPHILS ABSOLUTE COUNT (BEAKER) (test uufo=394) 0.01 K/ L 0.01-0.08 IMMATURE GRANULOCYTES-RELATIVE PERCENT (BEAKER) 1 % 0-1 (test nggi=2014) CT, [id number] 22:20:00FINAL REPORT EXAM: CT of the abdomen [...] MDReport Verified Date/Time: 12/28/2017 22:20:52 Reading Location: [address] Reading Room CBC W/PLT COUNT & AUTO [id number] 18:06:00 Test Item Value Reference Range Comments WHITE BLOOD CELL COUNT (BEAKER) (test mqyb=518) 2.9 K/ L 3.5-10.5 RED BLOOD CELL COUNT (BEAKER) (test osvf=852) 2.03 M/ L 4.63-6.08 HEMOGLOBIN (BEAKER) (test gyxf=294) 6.5 GM/DL 13.7-17.5 HEMATOCRIT (BEAKER) (test jseo=206) 19.2 % 40.1-51.0 MEAN CORPUSCULAR VOLUME (BEAKER) (test xaft=558) 94.6 fL 79.0-92.2 MEAN CORPUSCULAR HEMOGLOBIN (BEAKER) (test 32.0 pg 25.7-32.2 qavz=885) MEAN CORPUSCULAR HEMOGLOBIN CONC (BEAKER) (test 33.9 GM/DL 32.3-36.5 lcbm=904) RED CELL DISTRIBUTION WIDTH (BEAKER) (test 17.6 % 11.6-14.4 bwle=198) PLATELET COUNT (BEAKER) (test jqqs=497) 46 K/CU MM 150-450 MEAN PLATELET VOLUME (BEAKER) (test oowa=339) 9.3 fL 9.4-12.4 NUCLEATED RED BLOOD CELLS (BEAKER) (test 0 /100 WBC 0-0 ovgy=273) NEUTROPHILS RELATIVE PERCENT (BEAKER) (test 66 % qjeu=039) LYMPHOCYTES RELATIVE PERCENT (BEAKER) (test 12 % zxay=997) MONOCYTES RELATIVE PERCENT (BEAKER) (test 15 % uqbl=561) EOSINOPHILS RELATIVE PERCENT (BEAKER) (test 6 % qamw=054) BASOPHILS RELATIVE PERCENT (BEAKER) (test 0 % lhqv=400) NEUTROPHILS ABSOLUTE COUNT (BEAKER) (test 1.92 K/ L 1.78-5.38 klyb=433) LYMPHOCYTES ABSOLUTE COUNT (BEAKER) (test 0.36 K/ L 1.32-3.57 lzsk=514) MONOCYTES ABSOLUTE COUNT (BEAKER) (test dofb=511) 0.44 K/ L 0.30-0.82 EOSINOPHILS ABSOLUTE COUNT (BEAKER) (test 0.16 K/ L 0.04-0.54 kpig=704) BASOPHILS ABSOLUTE COUNT (BEAKER) (test kvpz=715) 0.01 K/ L 0.01-0.08 IMMATURE GRANULOCYTES-RELATIVE PERCENT (BEAKER) 1 % 0-1 (test xuql=9144) CBC W/PLT COUNT & AUTO [id number] 12:30:00 Test Item Value Reference Range Comments WHITE BLOOD CELL COUNT (BEAKER) (test qpwt=870) 3.1 K/ L 3.5-10.5 RED BLOOD CELL COUNT (BEAKER) (test czbe=437) 2.09 M/ L 4.63-6.08 HEMOGLOBIN (BEAKER) (test rnls=690) 6.8 GM/DL 13.7-17.5 HEMATOCRIT (BEAKER) (test hoan=964) 19.9 % 40.1-51.0 MEAN CORPUSCULAR VOLUME (BEAKER) (test dfiw=960) 95.2 fL 79.0-92.2 MEAN CORPUSCULAR HEMOGLOBIN (BEAKER) (test 32.5 pg 25.7-32.2 wtcx=601) MEAN CORPUSCULAR HEMOGLOBIN CONC (BEAKER) (test 34.2 GM/DL 32.3-36.5 dych=923) RED CELL DISTRIBUTION WIDTH (BEAKER) (test 17.5 % 11.6-14.4 ctya=714) PLATELET COUNT (BEAKER) (test uovl=375) 65 K/CU MM 150-450 MEAN PLATELET VOLUME (BEAKER) (test sslz=480) 10.6 fL 9.4-12.4 NUCLEATED RED BLOOD CELLS (BEAKER) (test 0 /100 WBC 0-0 vocp=393) NEUTROPHILS RELATIVE PERCENT (BEAKER) (test 60 % leof=233) LYMPHOCYTES RELATIVE PERCENT (BEAKER) (test 14 % kqqj=986) MONOCYTES RELATIVE PERCENT (BEAKER) (test 17 % vuup=132) EOSINOPHILS RELATIVE PERCENT (BEAKER) (test 8 % oevu=609) BASOPHILS RELATIVE PERCENT (BEAKER) (test 0 % qdey=796) NEUTROPHILS ABSOLUTE COUNT (BEAKER) (test 1.85 K/ L 1.78-5.38 rduk=166) LYMPHOCYTES ABSOLUTE COUNT (BEAKER) (test 0.42 K/ L 1.32-3.57 jzpa=887) MONOCYTES ABSOLUTE COUNT (BEAKER) (test xaxd=373) 0.52 K/ L 0.30-0.82 EOSINOPHILS ABSOLUTE COUNT (BEAKER) (test 0.26 K/ L 0.04-0.54 kqpd=689) BASOPHILS ABSOLUTE COUNT (BEAKER) (test bvyo=709) 0.01 K/ L 0.01-0.08 IMMATURE GRANULOCYTES-RELATIVE PERCENT (BEAKER) 1 % 0-1 (test ymrh=9921) U/S, [id number] 06:59:00Limit fluid removal to no more than 5 litersReason for exam:->ascites, concern for sbpShould thisbe performed at the bedside?->NoFINAL REPORT Paracentesis dated 2017 Procedure: Ultrasound-guided paracentesis. Preprocedure diagnosis: Ascites Postprocedure diagnosis: Ascites Conscious sedation: None. Radiologist: Lena Lynn M.D. Data Compiler: None Anesthesia: 1% Xylocaine mixed with sodium bicarbonate local anesthesia. Technique: After obtaining informed consent, ultrasound-guided paracentesis was performed under usual sterile technique. Using a 5 swedish drainage catheter, puncture was made in the right lower quadrant abdomen. Approximately 5000 cc of serous fluid was removed. Patient tolerated the procedure well without complication. Complication: None Graft/ Implant: None Estimated Blood Loss: NoneImpression: Ultrasound-guided paracentesis. Signed: Lena Lynn MDReport Verified Date/Time: 12/28/2017 06:59 :16 Reading Location: [facility] B1 C013Y CT Body Reading Room ALPHA FETOPROTEIN (AFP), TUMOR [id number] 06:22:00 Test Item Value Reference Range Comments ALPHA-FETOPROTEIN (BEAKER) (test apqy=0067) 4.1 ng/mL <10.0 COMPREHENSIVE METABOLIC [id number] 06:00:00 Test Item Value Reference Range Comments TOTAL PROTEIN (BEAKER) 5.3 gm/dL 6.0-8.3 (test ldqz=815) ALBUMIN (BEAKER) (test 2.7 g/dL 3.5-5.0 rkzs=8954) ALKALINE PHOSPHATASE 94 U/L 40-150 (BEAKER) (test vqhz=857) BILIRUBIN TOTAL (BEAKER) 3.7 mg/dL 0.2-1.2 (test ymim=599) SODIUM (BEAKER) (test 124 meq/L 136-145 sqnl=954) POTASSIUM (BEAKER) (test 4.6 meq/L 3.5-5.1 euei=150) CHLORIDE (BEAKER) (test 96 meq/L 98-107 zgtl=921) CO2 (BEAKER) (test 22 meq/L 22-29 hwoj=741) BLOOD UREA NITROGEN 22 mg/dL 7-21 (BEAKER) (test yznp=901) CREATININE (BEAKER) (test 1.40 mg/dL 0.57-1.25 dlui=959) GLUCOSE RANDOM (BEAKER) 89 mg/dL 70-105 (test uoib=198) CALCIUM (BEAKER) (test 8.8 mg/dL 8.4-10.2 qpob=944) AST (SGOT) (BEAKER) (test 25 U/L 5-34 ajsl=465) ALT (SGPT) (BEAKER) (test 10 U/L 6-55 ycik=895) EGFR (BEAKER) (test 53 mL/min/1.73 sq m ESTIMATED GFR IS NOT subs=1366) ACCURATE CREATININE CLEARANCE IN PREDICTING GLOMERULAR FILTRATION RATE. ESTIMATED GFR IS NOT APPLICABLE FOR DIALYSIS PATIENTS. Specimen slightly ictericCBC W/PLT COUNT & AUTO [id number] 05:50 :00 Test Item Value Reference Range Comments WHITE BLOOD CELL COUNT (BEAKER) (test gzsr=806) 3.1 K/ L 3.5-10.5 RED BLOOD CELL COUNT (BEAKER) (test hrtt=438) 2.00 M/ L 4.63-6.08 HEMOGLOBIN (BEAKER) (test qefc=481) 6.4 GM/DL 13.7-17.5 HEMATOCRIT (BEAKER) (test vhrb=211) 18.9 % 40.1-51.0 MEAN CORPUSCULAR VOLUME (BEAKER) (test ocmt=732) 94.5 fL 79.0-92.2 MEAN CORPUSCULAR HEMOGLOBIN (BEAKER) (test 32.0 pg 25.7-32.2 sjsq=422) MEAN CORPUSCULAR HEMOGLOBIN CONC (BEAKER) (test 33.9 GM/DL 32.3-36.5 ivmu=369) RED CELL DISTRIBUTION WIDTH (BEAKER) (test 17.9 % 11.6-14.4 gvnj=384) PLATELET COUNT (BEAKER) (test fchi=935) 59 K/CU MM 150-450 MEAN PLATELET VOLUME (BEAKER) (test ydhl=542) 10.4 fL 9.4-12.4 NUCLEATED RED BLOOD CELLS (BEAKER) (test 0 /100 WBC 0-0 hhrp=262) NEUTROPHILS RELATIVE PERCENT (BEAKER) (test 63 % tvvu=018) LYMPHOCYTES RELATIVE PERCENT (BEAKER) (test 14 % hjet=852) MONOCYTES RELATIVE PERCENT (BEAKER) (test 15 % dznu=397) EOSINOPHILS RELATIVE PERCENT (BEAKER) (test 7 % vovd=880) BASOPHILS RELATIVE PERCENT (BEAKER) (test 0 % nbzs=822) NEUTROPHILS ABSOLUTE COUNT (BEAKER) (test 1.94 K/ L 1.78-5.38 eaae=024) LYMPHOCYTES ABSOLUTE COUNT (BEAKER) (test 0.44 K/ L 1.32-3.57 ngih=779) MONOCYTES ABSOLUTE COUNT (BEAKER) (test fkzv=055) 0.47 K/ L 0.30-0.82 EOSINOPHILS ABSOLUTE COUNT (BEAKER) (test 0.21 K/ L 0.04-0.54 rwgq=585) BASOPHILS ABSOLUTE COUNT (BEAKER) (test dvth=830) 0.01 K/ L 0.01-0.08 IMMATURE GRANULOCYTES-RELATIVE PERCENT (BEAKER) 1 % 0-1 (test lskx=3459) BODY FLUID CELL COUNT WITH [id number] 20:39:00 Test Item Value Reference Range Comments APPEARANCE FLUID (BEAKER) (test tysy=363) Slightly Hazy Clear COLOR FLUID (BEAKER) (test xoik=910) Yellow Colorless, Straw RBC FLUID (BEAKER) (test meqs=185) 90 /cu mm <=1 ADJUSTED WBC FLUID (BEAKER) (test eiad=0030) 47 /cu mm <=5 LINING CELLS (BEAKER) (test qmmk=8410) 3 /cu mm <=1 NEUTROPHILS FLUID (BEAKER) (test jdpe=9197) 2 % LYMPHS FLUID (BEAKER) (test dnkd=480) 19 % MONO/MACROPHAGE FLUID (BEAKER) (test 79 % jvnj=240) EOSINOPHILS FLUID (BEAKER) (test deqb=291) 0 % BASO FLUID (BEAKER) (test lyeo=072) 0 % CONTAINER BODY FLUID (BEAKER) (test EDTA Tube epit=4703) ALBUMIN, BODY [id number] 20:14:00 Test Item Value Reference Range Comments ALBUMIN FLUID (BEAKER) (test dmnx=379) 0.4 gm/dL Reference Range: No Normals Assay performance has not been validated for this type of specimen.BASIC METABOLIC [id number] 10:31:00 Test Item Value Reference Range Comments SODIUM (BEAKER) (test 125 meq/L 136-145 cbdd=951) POTASSIUM (BEAKER) (test 4.5 meq/L 3.5-5.1 zian=798) CHLORIDE (BEAKER) (test 98 meq/L 98-107 sugx=084) CO2 (BEAKER) (test 20 meq/L 22-29 qyoz=941) BLOOD UREA NITROGEN 22 mg/dL 7-21 (BEAKER) (test yoey=345) CREATININE (BEAKER) (test 1.45 mg/dL 0.57-1.25 cxkr=310) GLUCOSE RANDOM (BEAKER) 87 mg/dL 70-105 (test fuwt=759) CALCIUM (BEAKER) (test 8.6 mg/dL 8.4-10.2 ryeq=919) EGFR (BEAKER) (test 51 mL/min/1.73 sq m ESTIMATED GFR IS NOT thbj=9070) ACCURATE CREATININE CLEARANCE IN PREDICTING GLOMERULAR FILTRATION RATE. ESTIMATED GFR IS NOT APPLICABLE FOR DIALYSIS PATIENTS. Specimen slightly ictericHEPATIC FUNCTION [id number] 10:31:00 Test Item Value Reference Range Comments TOTAL PROTEIN (BEAKER) (test zbnh=944) 5.8 gm/dL 6.0-8.3 ALBUMIN (BEAKER) (test vsqj=0124) 2.4 g/dL 3.5-5.0 BILIRUBIN TOTAL (BEAKER) (test taaw=923) 4.1 mg/dL 0.2-1.2 BILIRUBIN DIRECT (BEAKER) (test rrhk=978) 3.1 mg/dL 0.1-0.5 ALKALINE PHOSPHATASE (BEAKER) (test jjvt=144) 126 U/L 40-150 AST (SGOT) (BEAKER) (test imxc=939) 28 U/L 5-34 ALT (SGPT) (BEAKER) (test noty=796) 13 U/L 6-55 Specimen slightly ictericCBC W/PLT COUNT & AUTO [id number] 10:09 :00 Test Item Value Reference Range Comments WHITE BLOOD CELL COUNT (BEAKER) (test wxkp=556) 5.5 K/ L 3.5-10.5 RED BLOOD CELL COUNT (BEAKER) (test wiou=288) 2.56 M/ L 4.63-6.08 HEMOGLOBIN (BEAKER) (test zkdm=110) 8.1 GM/DL 13.7-17.5 HEMATOCRIT (BEAKER) (test kssz=389) 24.2 % 40.1-51.0 MEAN CORPUSCULAR VOLUME (BEAKER) (test bkhx=701) 94.5 fL 79.0-92.2 MEAN CORPUSCULAR HEMOGLOBIN (BEAKER) (test 31.6 pg 25.7-32.2 xfcj=352) MEAN CORPUSCULAR HEMOGLOBIN CONC (BEAKER) (test 33.5 GM/DL 32.3-36.5 glsi=155) RED CELL DISTRIBUTION WIDTH (BEAKER) (test 18.6 % 11.6-14.4 cjbd=171) PLATELET COUNT (BEAKER) (test fcjq=632) 86 K/CU MM 150-450 MEAN PLATELET VOLUME (BEAKER) (test kylc=552) 9.7 fL 9.4-12.4 NUCLEATED RED BLOOD CELLS (BEAKER) (test 0 /100 WBC 0-0 pmhd=514) NEUTROPHILS RELATIVE PERCENT (BEAKER) (test 65 % zegj=796) LYMPHOCYTES RELATIVE PERCENT (BEAKER) (test 13 % zcwz=724) MONOCYTES RELATIVE PERCENT (BEAKER) (test 14 % ljja=160) EOSINOPHILS RELATIVE PERCENT (BEAKER) (test 6 % jqom=014) BASOPHILS RELATIVE PERCENT (BEAKER) (test 0 % jpiq=352) NEUTROPHILS ABSOLUTE COUNT (BEAKER) (test 3.59 K/ L 1.78-5.38 egkz=689) LYMPHOCYTES ABSOLUTE COUNT (BEAKER) (test 0.73 K/ L 1.32-3.57 udft=853) MONOCYTES ABSOLUTE COUNT (BEAKER) (test stqw=980) 0.76 K/ L 0.30-0.82 EOSINOPHILS ABSOLUTE COUNT (BEAKER) (test 0.33 K/ L 0.04-0.54 wzbh=595) BASOPHILS ABSOLUTE COUNT (BEAKER) (test ckqc=971) 0.02 K/ L 0.01-0.08 IMMATURE GRANULOCYTES-RELATIVE PERCENT (BEAKER) 1 % 0-1 (test jhzn=3972) PROTHROMBIN [id number] 07:51:00 Test Item Value Reference Range Comments PROTIME (BEAKER) (test jxeu=423) 23.8 seconds 11.7-14.7 INR (BEAKER) (test pqbg=257) 2.1 <=5.9 RECOMMENDED COUMADIN/WARFARIN INR THERAPY RANGESSTANDARD DOSE: 2.0 - 3.0 Includes: PROPHYLAXIS forvenous thrombosis, systemic embolization; TREATMENT for venous thrombosis and/or pulmonary embolus.HIGH RISK: Target INR is 2.5-3.5 for patients with mechanical heart valves.BLOOD [id number] 05:02:00 Test Item Value Reference Range Comments CULTURE (BEAKER) (test cnzo=5213) No growth in 5 days BLOOD [id number] 05:02:00 Test Item Value Reference Range Comments CULTURE (BEAKER) (test wwqt=1476) No growth in 5 days BODY FLUID CULTURE + GRAM [id number] 09:05:00 Test Item Value Reference Range Comments CULTURE (BEAKER) (test xybb=6486) No growth GRAM STAIN RESULT (BEAKER) (test No White blood cells seen yngc=8891) GRAM STAIN RESULT (BEAKER) (test No organisms seen wilb=18156) RAPID DRUG SCREEN, [id number] 23:13:00 Test Item Value Reference Range Comments BARBITURATE URINE (BEAKER) (test yqih=200) Negative Negative BENZODIAZEPINE SCREEN URINE (BEAKER) (test Negative Negative ouea=374) COCAINE (METAB.) SCREEN (BEAKER) (test hrpk=8769) Negative Negative METHADONE SCREEN (BEAKER) (test ojsg=6369) Negative Negative OPIATE SCREEN URINE (BEAKER) (test nzfc=601) Negative Negative CANNABINOID SCREEN URINE (BEAKER) (test utbh=311) Negative Negative AMPH/METHAMPH SCREEN (BEAKER) (test smon=0805) Negative Negative PHENCYCLIDINE SCREEN URINE (BEAKER) (test lkrv=267) Negative Negative OXYCODONE SCREEN URINE (BEAKER) (test zfnw=3886) Negative Negative DRUG CUTOFF CONC.Cocaine 300 ng/mL Cannabinoid 50 ng/mL Benzodiazepine 200 ng/mLBarbiturate 200 ng/ mLPhencyclidine 25 ng/mLOpiate 300 ng/mLMethadone 300 ng/mLAmphetamine/ 1000 ng/mL MethamphetamineOxycodone 300 ng/mLThis assay provides an unconfirmed qualitative test result for the clinical management of patients in emergency situations. Chain of custody not maintained. Some kjqc-mgs-odxdzdi medications, as well as adulterants, may cause inaccurate results. Clinical correlation should be applied. A more comprehensive drug screen or confirmation of a detected drug may be performed upon request.MR, ABDOMEN, [id number] 13:52:00FINAL REPORT MRI of the abdomen with [...] MDReport Verified Date/Time: 09/05/2017 13:52:35 Reading Location: [address] BodyReading Room CBC W/PLT COUNT & AUTO [id number] 05:46:00 Test Item Value Reference Range Comments WHITE BLOOD CELL COUNT (BEAKER) (test mdtp=084) 4.7 K/ L 3.5-10.5 RED BLOOD CELL COUNT (BEAKER) (test wsxx=479) 2.49 M/ L 4.63-6.08 HEMOGLOBIN (BEAKER) (test iwur=670) 7.9 GM/DL 13.7-17.5 HEMATOCRIT (BEAKER) (test iqnz=504) 22.6 % 40.1-51.0 MEAN CORPUSCULAR VOLUME (BEAKER) (test fjcb=183) 90.8 fL 79.0-92.2 MEAN CORPUSCULAR HEMOGLOBIN (BEAKER) (test 31.7 pg 25.7-32.2 untk=217) MEAN CORPUSCULAR HEMOGLOBIN CONC (BEAKER) (test 35.0 GM/DL 32.3-36.5 aurc=563) RED CELL DISTRIBUTION WIDTH (BEAKER) (test 18.8 % 11.6-14.4 ffst=385) PLATELET COUNT (BEAKER) (test yyla=315) 60 K/CU MM 150-450 MEAN PLATELET VOLUME (BEAKER) (test aqdx=547) 9.2 fL 9.4-12.4 NUCLEATED RED BLOOD CELLS (BEAKER) (test 0 /100 WBC 0-0 aeii=347) NEUTROPHILS RELATIVE PERCENT (BEAKER) (test 65 % ldtd=396) LYMPHOCYTES RELATIVE PERCENT (BEAKER) (test 13 % ttxd=963) MONOCYTES RELATIVE PERCENT (BEAKER) (test 15 % xglc=631) EOSINOPHILS RELATIVE PERCENT (BEAKER) (test 6 % sisu=944) BASOPHILS RELATIVE PERCENT (BEAKER) (test 0 % ajdz=103) NEUTROPHILS ABSOLUTE COUNT (BEAKER) (test 3.05 K/ L 1.78-5.38 qank=468) LYMPHOCYTES ABSOLUTE COUNT (BEAKER) (test 0.62 K/ L 1.32-3.57 sehx=471) MONOCYTES ABSOLUTE COUNT (BEAKER) (test ypun=651) 0.68 K/ L 0.30-0.82 EOSINOPHILS ABSOLUTE COUNT (BEAKER) (test 0.28 K/ L 0.04-0.54 linl=522) BASOPHILS ABSOLUTE COUNT (BEAKER) (test ihaw=707) 0.02 K/ L 0.01-0.08 IMMATURE GRANULOCYTES-RELATIVE PERCENT (BEAKER) 1 % 0-1 (test mmac=7897) BASIC METABOLIC [id number] 05:44:00 Test Item Value Reference Range Comments SODIUM (BEAKER) (test 127 meq/L 136-145 hkil=408) POTASSIUM (BEAKER) (test 4.5 meq/L 3.5-5.1 slnr=714) CHLORIDE (BEAKER) (test 101 meq/L 98-107 zimp=349) CO2 (BEAKER) (test 19 meq/L 22-29 gkja=185) BLOOD UREA NITROGEN 17 mg/dL 7-21 (BEAKER) (test lnli=020) CREATININE (BEAKER) (test 0.91 mg/dL 0.57-1.25 rcnv=375) GLUCOSE RANDOM (BEAKER) 107 mg/dL 70-105 (test vcfk=233) CALCIUM (BEAKER) (test 9.4 mg/dL 8.4-10.2 tpex=883) EGFR (BEAKER) (test 87 mL/min/1.73 sq m ESTIMATED GFR IS NOT zent=1207) ACCURATE CREATININE CLEARANCE IN PREDICTING GLOMERULAR FILTRATION RATE. ESTIMATED GFR IS NOT APPLICABLE FOR DIALYSIS PATIENTS. Specimen moderately ictericHEPATIC FUNCTION [id number] 05:44:00 Test Item Value Reference Range Comments TOTAL PROTEIN (BEAKER) (test whcc=493) 5.6 gm/dL 6.0-8.3 ALBUMIN (BEAKER) (test eebb=4624) 3.3 g/dL 3.5-5.0 BILIRUBIN TOTAL (BEAKER) (test pwal=780) 10.3 mg/dL 0.2-1.2 BILIRUBIN DIRECT (BEAKER) (test tqsh=408) 6.8 mg/dL 0.1-0.5 ALKALINE PHOSPHATASE (BEAKER) (test rdsq=561) 103 U/L 40-150 AST (SGOT) (BEAKER) (test pmrf=705) 17 U/L 5-34 ALT (SGPT) (BEAKER) (test tjze=067) 8 U/L 6-55 Specimen moderately ictericPT/[id number] 05:31:00 Test Item Value Reference Range Comments PROTIME (BEAKER) (test fbmx=352) 25.6 seconds 11.7-14.7 INR (BEAKER) (test bmoi=362) 2.3 <=5.9 PARTIAL THROMBOPLASTIN TIME (BEAKER) (test 51.6 seconds 22.5-36.0 ftvm=456) RECOMMENDED COUMADIN/WARFARIN INR THERAPY RANGESSTANDARD DOSE: 2.0 - 3.0 Includes: PROPHYLAXIS forvenous thrombosis, systemic embolization; TREATMENT for venous thrombosis and/or pulmonary embolus.HIGH RISK: Target INR is 2.5-3.5 for patients with mechanical heart valves.PROTHROMBIN TIME/[id number] 05:30: 00 Test Item Value Reference Range Comments PROTIME (BEAKER) (test ifnd=470) 25.6 seconds 11.7-14.7 INR (BEAKER) (test fzof=594) 2.3 <=5.9 RECOMMENDED COUMADIN/WARFARIN INR THERAPY RANGESSTANDARD DOSE: 2.0 - 3.0 Includes: PROPHYLAXIS forvenous thrombosis, systemic embolization; TREATMENT for venous thrombosis and/or pulmonary embolus.HIGH RISK: Target INR is 2.5-3.5 for patients with mechanical heart valves.BODY FLUID CELL COUNT WITH [id number] 19:30:00 Test Item Value Reference Range Comments APPEARANCE FLUID (BEAKER) (test welk=977) Slightly Hazy Clear COLOR FLUID (BEAKER) (test bhct=414) Yellow Colorless, Straw RBC FLUID (BEAKER) (test nlgi=243) 100 /cu mm <=1 ADJUSTED WBC FLUID (BEAKER) (test wics=7033) 36 /cu mm <=5 LINING CELLS (BEAKER) (test cwir=3897) 4 /cu mm <=1 NEUTROPHILS FLUID (BEAKER) (test pqbp=5197) 0 % LYMPHS FLUID (BEAKER) (test wcoi=280) 20 % MONO/MACROPHAGE FLUID (BEAKER) (test 80 % ezvp=792) EOSINOPHILS FLUID (BEAKER) (test uzew=479) 0 % BASO FLUID (BEAKER) (test rcvj=107) 0 % CONTAINER BODY FLUID (BEAKER) (test EDTA Tube irty=2529) U/S, [id number] 16:21:00Reason for exam:->ascitesShould this be performed at the bedside?->NoFINAL REPORT PROCEDURE: Ultrasound-guided paracentesis. INDICATION: 52-year-old man with ascites. DESCRIPTION: After obtaining informed written consent, ultrasound scan of the abdomen identified ascites in the right lower quadrant. The overlying skin was prepped and draped in the usual, sterile fashion and local 1% lidocaine anesthesia was administered. A 5 Wolof catheter was advanced into the peritoneal cavity and 13,200 cc of cloudy yellow fluid was removed. The catheter was removed without immediate complication. Samples were sent for analysis. IMPRESSION:Uncomplicated ultrasound-guided paracentesis with 13,200 cc fluid removed. Signed: Candice Mckeon Verified Date/Time: 2016 16:21:22 Reading Location: [address] Ultrasound Reading Room [facility] METABOLIC [id number] 11:07:00 Test Item Value Reference Range Comments SODIUM (BEAKER) (test 127 meq/L 136-145 xurq=168) POTASSIUM (BEAKER) (test 4.1 meq/L 3.5-5.1 vjlw=506) CHLORIDE (BEAKER) (test 101 meq/L 98-107 jadp=549) CO2 (BEAKER) (test 23 meq/L 22-29 fwxi=268) BLOOD UREA NITROGEN 17 mg/dL 7-21 (BEAKER) (test vfls=213) CREATININE (BEAKER) (test 1.06 mg/dL 0.57-1.25 wsxy=239) GLUCOSE RANDOM (BEAKER) 104 mg/dL 70-105 (test boae=738) CALCIUM (BEAKER) (test 8.9 mg/dL 8.4-10.2 czet=826) EGFR (BEAKER) (test 73 mL/min/1.73 sq m ESTIMATED GFR IS NOT dyza=7772) ACCURATE CREATININE CLEARANCE IN PREDICTING GLOMERULAR FILTRATION RATE. ESTIMATED GFR IS NOT APPLICABLE FOR DIALYSIS PATIENTS. Specimen markedly ictericHEPATIC FUNCTION [id number] 11:07:00 Test Item Value Reference Range Comments TOTAL PROTEIN (BEAKER) (test wfhj=271) 5.4 gm/dL 6.0-8.3 ALBUMIN (BEAKER) (test zeby=5135) 2.8 g/dL 3.5-5.0 BILIRUBIN TOTAL (BEAKER) (test okjs=500) 12.7 mg/dL 0.2-1.2 BILIRUBIN DIRECT (BEAKER) (test clba=528) 7.8 mg/dL 0.1-0.5 ALKALINE PHOSPHATASE (BEAKER) (test izxd=510) 90 U/L 40-150 AST (SGOT) (BEAKER) (test hobl=424) 22 U/L 5-34 ALT (SGPT) (BEAKER) (test zchx=572) 11 U/L 6-55 Specimen markedly ictericPT/[id number] 11:02:00 Test Item Value Reference Range Comments PROTIME (BEAKER) (test xggo=702) 23.4 seconds 11.7-14.7 INR (BEAKER) (test sjuf=517) 2.1 <=5.9 PARTIAL THROMBOPLASTIN TIME (BEAKER) (test 48.7 seconds 22.5-36.0 nwyk=486) RECOMMENDED COUMADIN/WARFARIN INR THERAPY RANGESSTANDARD DOSE: 2.0 - 3.0 Includes: PROPHYLAXIS forvenous thrombosis, systemic embolization; TREATMENT for venous thrombosis and/or pulmonary embolus.HIGH RISK: Target INR is 2.5-3.5 for patients with mechanical heart valves.PROTHROMBIN TIME/[id number] 11:01: 00 Test Item Value Reference Range Comments PROTIME (BEAKER) (test ozlz=635) 23.4 seconds 11.7-14.7 INR (BEAKER) (test ilai=215) 2.1 <=5.9 RECOMMENDED COUMADIN/WARFARIN INR THERAPY RANGESSTANDARD DOSE: 2.0 - 3.0 Includes: PROPHYLAXIS forvenous thrombosis, systemic embolization; TREATMENT for venous thrombosis and/or pulmonary embolus.HIGH RISK: Target INR is 2.5-3.5 for patients with mechanical heart valves.CBC W/PLT COUNT & AUTO [id number] 10:56:00 Test Item Value Reference Range Comments WHITE BLOOD CELL COUNT (BEAKER) (test xxpb=092) 4.4 K/ L 3.5-10.5 RED BLOOD CELL COUNT (BEAKER) (test yqnc=473) 2.48 M/ L 4.63-6.08 HEMOGLOBIN (BEAKER) (test rgmp=149) 7.8 GM/DL 13.7-17.5 HEMATOCRIT (BEAKER) (test xytd=181) 22.7 % 40.1-51.0 MEAN CORPUSCULAR VOLUME (BEAKER) (test volg=455) 91.5 fL 79.0-92.2 MEAN CORPUSCULAR HEMOGLOBIN (BEAKER) (test 31.5 pg 25.7-32.2 qbds=238) MEAN CORPUSCULAR HEMOGLOBIN CONC (BEAKER) (test 34.4 GM/DL 32.3-36.5 arut=791) RED CELL DISTRIBUTION WIDTH (BEAKER) (test 18.6 % 11.6-14.4 duin=158) PLATELET COUNT (BEAKER) (test lfbc=991) 60 K/CU MM 150-450 MEAN PLATELET VOLUME (BEAKER) (test kerp=411) 8.8 fL 9.4-12.4 NUCLEATED RED BLOOD CELLS (BEAKER) (test 0 /100 WBC 0-0 uewj=763) NEUTROPHILS RELATIVE PERCENT (BEAKER) (test 61 % nzgr=350) LYMPHOCYTES RELATIVE PERCENT (BEAKER) (test 9 % hrac=022) MONOCYTES RELATIVE PERCENT (BEAKER) (test 21 % uybx=055) EOSINOPHILS RELATIVE PERCENT (BEAKER) (test 8 % yrna=676) BASOPHILS RELATIVE PERCENT (BEAKER) (test 1 % jdyj=451) NEUTROPHILS ABSOLUTE COUNT (BEAKER) (test 2.68 K/ L 1.78-5.38 qkiu=369) LYMPHOCYTES ABSOLUTE COUNT (BEAKER) (test 0.38 K/ L 1.32-3.57 regz=242) MONOCYTES ABSOLUTE COUNT (BEAKER) (test ewkr=653) 0.94 K/ L 0.30-0.82 EOSINOPHILS ABSOLUTE COUNT (BEAKER) (test 0.33 K/ L 0.04-0.54 aurd=239) BASOPHILS ABSOLUTE COUNT (BEAKER) (test dehq=464) 0.02 K/ L 0.01-0.08 IMMATURE GRANULOCYTES-RELATIVE PERCENT (BEAKER) 1 % 0-1 (test ahwd=1352) URINALYSIS W/ [id number] 06:18:00 Test Item Value Reference Range Comments COLOR (BEAKER) (test gofa=657) Dark Yellow CLARITY (BEAKER) (test rhtq=276) Clear SPECIFIC GRAVITY UA (BEAKER) (test lkat=939) 1.008 1.001-1.035 PH UA (BEAKER) (test rtty=705) 6.0 5.0-8.0 PROTEIN UA (BEAKER) (test zvow=563) Negative Negative GLUCOSE UA (BEAKER) (test ymhv=067) Negative Negative KETONES UA (BEAKER) (test aycm=445) Negative Negative BILIRUBIN UA (BEAKER) (test ocsg=518) Positive Negative BLOOD UA (BEAKER) (test oqdo=323) Moderate Negative NITRITE UA (BEAKER) (test ljlq=907) Negative Negative LEUKOCYTE ESTERASE UA (BEAKER) (test lvey=580) Negative Negative UROBILINOGEN UA (BEAKER) (test wwav=532) 0.2 mg/dL 0.2-1.0 RBC UA (BEAKER) (test bmae=273) 80 /HPF WBC UA (BEAKER) (test xvnk=351) 10 /HPF HYALINE CASTS (BEAKER) (test svgt=291) 5 /LPF AMORPHOUS CRYSTALS (BEAKER) (test hlmd=4693) Rare SOURCE(BEAKER) (test kthm=4579) CBC W/PLT COUNT & AUTO [id number] 00:00:00 Test Item Value Reference Range Comments WHITE BLOOD CELL COUNT (BEAKER) (test fcce=577) 3.7 K/ L 3.5-10.5 RED BLOOD CELL COUNT (BEAKER) (test ulgh=672) 2.20 M/ L 4.63-6.08 HEMOGLOBIN (BEAKER) (test eyda=567) 7.0 GM/DL 13.7-17.5 HEMATOCRIT (BEAKER) (test gmlo=072) 20.2 % 40.1-51.0 MEAN CORPUSCULAR VOLUME (BEAKER) (test sqdm=232) 91.8 fL 79.0-92.2 MEAN CORPUSCULAR HEMOGLOBIN (BEAKER) (test 31.8 pg 25.7-32.2 qped=061) MEAN CORPUSCULAR HEMOGLOBIN CONC (BEAKER) (test 34.7 GM/DL 32.3-36.5 qshz=726) RED CELL DISTRIBUTION WIDTH (BEAKER) (test 19.3 % 11.6-14.4 bsty=936) PLATELET COUNT (BEAKER) (test qfgo=746) 63 K/CU MM 150-450 MEAN PLATELET VOLUME (BEAKER) (test ohmx=641) 9.1 fL 9.4-12.4 NUCLEATED RED BLOOD CELLS (BEAKER) (test 0 /100 WBC 0-0 xsog=825) NEUTROPHILS RELATIVE PERCENT (BEAKER) (test 62 % kmed=351) LYMPHOCYTES RELATIVE PERCENT (BEAKER) (test 11 % wiwe=280) MONOCYTES RELATIVE PERCENT (BEAKER) (test 19 % eapp=634) EOSINOPHILS RELATIVE PERCENT (BEAKER) (test 7 % jecf=125) BASOPHILS RELATIVE PERCENT (BEAKER) (test 1 % bsyi=514) NEUTROPHILS ABSOLUTE COUNT (BEAKER) (test 2.29 K/ L 1.78-5.38 gmkj=260) LYMPHOCYTES ABSOLUTE COUNT (BEAKER) (test 0.39 K/ L 1.32-3.57 fadq=024) MONOCYTES ABSOLUTE COUNT (BEAKER) (test asai=780) 0.71 K/ L 0.30-0.82 EOSINOPHILS ABSOLUTE COUNT (BEAKER) (test 0.27 K/ L 0.04-0.54 sqhl=139) BASOPHILS ABSOLUTE COUNT (BEAKER) (test bbug=209) 0.02 K/ L 0.01-0.08 IMMATURE GRANULOCYTES-RELATIVE PERCENT (BEAKER) 1 % 0-1 (test zohq=1299) PROTHROMBIN [id number] 22:52:00 Test Item Value Reference Range Comments PROTIME (BEAKER) (test qcua=146) 25.6 seconds 11.7-14.7 INR (BEAKER) (test jmtb=285) 2.3 <=5.9 RECOMMENDED COUMADIN/WARFARIN INR THERAPY RANGESSTANDARD DOSE: 2.0 - 3.0 Includes: PROPHYLAXIS forvenous thrombosis, systemic embolization; TREATMENT for venous thrombosis and/or pulmonary embolus.HIGH RISK: Target INR is 2.5-3.5 for patients with mechanical heart valves.[id number] 22:52:00 Test Item Value Reference Range Comments MAGNESIUM (BEAKER) (test bjlf=634) 1.3 mg/dL 1.6-2.6 BASIC METABOLIC [id number] 22:52:00 Test Item Value Reference Range Comments SODIUM (BEAKER) (test 124 meq/L 136-145 eflu=704) POTASSIUM (BEAKER) (test 4.1 meq/L 3.5-5.1 cgoz=094) CHLORIDE (BEAKER) (test 99 meq/L 98-107 dsmu=168) CO2 (BEAKER) (test 18 meq/L 22-29 mcfr=085) BLOOD UREA NITROGEN 16 mg/dL 7-21 (BEAKER) (test gxic=946) CREATININE (BEAKER) (test 0.97 mg/dL 0.57-1.25 ogvi=904) GLUCOSE RANDOM (BEAKER) 99 mg/dL 70-105 (test uuac=544) CALCIUM (BEAKER) (test 8.7 mg/dL 8.4-10.2 fxfh=737) EGFR (BEAKER) (test 81 mL/min/1.73 sq m ESTIMATED GFR IS NOT nhpf=8823) ACCURATE CREATININE CLEARANCE IN PREDICTING GLOMERULAR FILTRATION RATE. ESTIMATED GFR IS NOT APPLICABLE FOR DIALYSIS PATIENTS. Specimen markedly ictericHEPATIC FUNCTION [id number] 22:52:00 Test Item Value Reference Range Comments TOTAL PROTEIN (BEAKER) (test sxoa=520) 5.3 gm/dL 6.0-8.3 ALBUMIN (BEAKER) (test wnby=1379) 2.8 g/dL 3.5-5.0 BILIRUBIN TOTAL (BEAKER) (test nety=187) 12.7 mg/dL 0.2-1.2 BILIRUBIN DIRECT (BEAKER) (test lqmr=369) 7.6 mg/dL 0.1-0.5 ALKALINE PHOSPHATASE (BEAKER) (test mlhl=157) 93 U/L 40-150 AST (SGOT) (BEAKER) (test nbju=843) 21 U/L 5-34 ALT (SGPT) (BEAKER) (test oufh=350) 9 U/L 6-55 Specimen markedly ictericALPHA FETOPROTEIN (AFP), TUMOR [id number] 16:39: 00 Test Item Value Reference Range Comments ALPHA-FETOPROTEIN (BEAKER) (test dagv=3370) 2.5 ng/mL <10.0 BASIC METABOLIC [id number] 15:53:00 Test Item Value Reference Range Comments SODIUM (BEAKER) (test 126 meq/L 136-145 agdj=201) POTASSIUM (BEAKER) (test 5.1 meq/L 3.5-5.1 rgjy=388) CHLORIDE (BEAKER) (test 101 meq/L 98-107 pjmf=620) CO2 (BEAKER) (test 19 meq/L 22-29 pqae=762) BLOOD UREA NITROGEN 14 mg/dL 7-21 (BEAKER) (test vtyp=990) CREATININE (BEAKER) (test 1.01 mg/dL 0.57-1.25 zqmw=574) GLUCOSE RANDOM (BEAKER) 104 mg/dL 70-105 (test spix=867) CALCIUM (BEAKER) (test 9.0 mg/dL 8.4-10.2 ogfx=795) EGFR (BEAKER) (test 78 mL/min/1.73 sq m ESTIMATED GFR IS NOT alqx=4519) ACCURATE CREATININE CLEARANCE IN PREDICTING GLOMERULAR FILTRATION RATE. ESTIMATED GFR IS NOT APPLICABLE FOR DIALYSIS PATIENTS. Specimen moderately ictericHEPATIC FUNCTION [id number] 15:53:00 Test Item Value Reference Range Comments TOTAL PROTEIN (BEAKER) (test uyvn=090) 6.1 gm/dL 6.0-8.3 ALBUMIN (BEAKER) (test qoru=5710) 2.6 g/dL 3.5-5.0 BILIRUBIN TOTAL (BEAKER) (test xxza=902) 10.4 mg/dL 0.2-1.2 BILIRUBIN DIRECT (BEAKER) (test lfqy=772) 7.5 mg/dL 0.1-0.5 ALKALINE PHOSPHATASE (BEAKER) (test kspr=934) 124 U/L 40-150 AST (SGOT) (BEAKER) (test aiyx=645) 29 U/L 5-34 ALT (SGPT) (BEAKER) (test dypb=463) 12 U/L 6-55 Specimen moderately ictericGAMMA GLUTAMYL TRANSFERASE (GGT)[id number] 15:53:00 Test Item Value Reference Range Comments GAMMA GLUTAMYL TRANSFERASE (BEAKER) (test ibun=942) 17 U/L 9-64 Specimen moderately ictericPROTHROMBIN [id number] 15:40:00 Test Item Value Reference Range Comments PROTIME (BEAKER) (test xvis=629) 22.6 seconds 11.7-14.7 INR (BEAKER) (test lujc=036) 2.0 <=5.9 RECOMMENDED COUMADIN/WARFARIN INR THERAPY RANGESSTANDARD DOSE: 2.0 - 3.0 Includes: PROPHYLAXIS forvenous thrombosis, systemic embolization; TREATMENT for venous thrombosis and/or pulmonary embolus.HIGH RISK: Target INR is 2.5-3.5 for patients with mechanical heart valves.CBC W/PLT COUNT & AUTO [id number] 15:38:00 Test Item Value Reference Range Comments WHITE BLOOD CELL COUNT (BEAKER) (test ipsk=694) 7.3 K/ L 3.5-10.5 RED BLOOD CELL COUNT (BEAKER) (test mkqr=175) 2.78 M/ L 4.63-6.08 HEMOGLOBIN (BEAKER) (test bxhd=241) 9.1 GM/DL 13.7-17.5 HEMATOCRIT (BEAKER) (test umkf=128) 27.3 % 40.1-51.0 MEAN CORPUSCULAR VOLUME (BEAKER) (test ucdd=017) 98.2 fL 79.0-92.2 MEAN CORPUSCULAR HEMOGLOBIN (BEAKER) (test 32.7 pg 25.7-32.2 zmsx=799) MEAN CORPUSCULAR HEMOGLOBIN CONC (BEAKER) (test 33.3 GM/DL 32.3-36.5 gxot=722) RED CELL DISTRIBUTION WIDTH (BEAKER) (test 16.4 % 11.6-14.4 uqdd=776) PLATELET COUNT (BEAKER) (test cbma=458) 71 K/CU MM 150-450 MEAN PLATELET VOLUME (BEAKER) (test kizb=991) 9.1 fL 9.4-12.4 NUCLEATED RED BLOOD CELLS (BEAKER) (test 0 /100 WBC 0-0 qkvr=957) NEUTROPHILS RELATIVE PERCENT (BEAKER) (test 71 % yiuh=890) LYMPHOCYTES RELATIVE PERCENT (BEAKER) (test 8 % mehy=828) MONOCYTES RELATIVE PERCENT (BEAKER) (test 15 % hrpn=451) EOSINOPHILS RELATIVE PERCENT (BEAKER) (test 5 % jynq=620) BASOPHILS RELATIVE PERCENT (BEAKER) (test 0 % gsap=872) NEUTROPHILS ABSOLUTE COUNT (BEAKER) (test 5.13 K/ L 1.78-5.38 ixla=523) LYMPHOCYTES ABSOLUTE COUNT (BEAKER) (test 0.59 K/ L 1.32-3.57 lvhc=361) MONOCYTES ABSOLUTE COUNT (BEAKER) (test cywz=346) 1.06 K/ L 0.30-0.82 EOSINOPHILS ABSOLUTE COUNT (BEAKER) (test 0.33 K/ L 0.04-0.54 eyfj=999) BASOPHILS ABSOLUTE COUNT (BEAKER) (test dacu=144) 0.03 K/ L 0.01-0.08 IMMATURE GRANULOCYTES-RELATIVE PERCENT (BEAKER) 2 % 0-1 (test ypfp=1506) FUNGUS CULTURE + [id number] 07:22:00 Test Item Value Reference Range Comments CULTURE (BEAKER) (test No fungus isolated in 28 days cvqo=1310) FUNGUS SMEAR (BEAKER) (test No fungi seen dhlo=2280) HISTOPLASMA ANTIGEN, [id number] 08:01:00 Test Item Value Reference Range Comments SCAN RESULT (test wvpa=[id number]) TISSUE [id number] 10:58:00 Test Item Value Reference Range Comments LAB AP CPT CODE (BEAKER) (test pgiz=9444) 98594 BLOOD [id number] 16:15:00 Test Item Value Reference Range Comments CULTURE (BEAKER) (test ilkq=9145) No growth in 5 days BLOOD [id number] 16:15:00 Test Item Value Reference Range Comments CULTURE (BEAKER) (test ntmj=2091) No growth in 5 days [id number] 06:54:00 Test Item Value Reference Range Comments PHOSPHORUS (BEAKER) (test mwde=046) 3.3 mg/dL 2.3-4.7 [id number] 06:54:00 Test Item Value Reference Range Comments MAGNESIUM (BEAKER) (test hjdw=236) 1.2 mg/dL 1.6-2.6 BASIC METABOLIC [id number] 06:54:00 Test Item Value Reference Range Comments SODIUM (BEAKER) (test 133 meq/L 136-145 dvdl=317) POTASSIUM (BEAKER) (test 3.6 meq/L 3.5-5.1 eofp=485) CHLORIDE (BEAKER) (test 108 meq/L 98-107 hihn=289) CO2 (BEAKER) (test 17 meq/L 22-29 lyuk=571) BLOOD UREA NITROGEN 13 mg/dL 7-21 (BEAKER) (test dgop=023) CREATININE (BEAKER) (test 1.16 mg/dL 0.57-1.25 ugbr=889) GLUCOSE RANDOM (BEAKER) 82 mg/dL 70-105 (test ccyh=758) CALCIUM (BEAKER) (test 8.0 mg/dL 8.4-10.2 lhff=244) EGFR (BEAKER) (test 66 mL/min/1.73 sq m ESTIMATED GFR IS NOT igwp=3859) ACCURATE CREATININE CLEARANCE IN PREDICTING GLOMERULAR FILTRATION RATE. ESTIMATED GFR IS NOT APPLICABLE FOR DIALYSIS PATIENTS. Specimen moderately ictericHEPATIC FUNCTION [id number] 06:54:00 Test Item Value Reference Range Comments TOTAL PROTEIN (BEAKER) (test vwup=519) 5.7 gm/dL 6.0-8.3 ALBUMIN (BEAKER) (test hmvq=9019) 3.1 g/dL 3.5-5.0 BILIRUBIN TOTAL (BEAKER) (test eswc=082) 5.2 mg/dL 0.2-1.2 BILIRUBIN DIRECT (BEAKER) (test rfxu=816) 2.6 mg/dL 0.1-0.5 ALKALINE PHOSPHATASE (BEAKER) (test avhq=743) 55 U/L 40-150 AST (SGOT) (BEAKER) (test lvmu=915) 32 U/L 5-34 ALT (SGPT) (BEAKER) (test ehvg=350) 9 U/L 6-55 Specimen moderately ictericCALCIUM, [id number] 06:30:00 Test Item Value Reference Range Comments CALCIUM IONIZED (BEAKER) (test npko=559) 1.00 mmol/L 1.12-1.27 PH, BLOOD (BEAKER) (test ukes=4166) 7.52 CBC W/PLT COUNT & AUTO [id number] 06:17:00 Test Item Value Reference Range Comments WHITE BLOOD CELL COUNT (BEAKER) (test xdhh=931) 4.7 K/ L 4.0-10.0 RED BLOOD CELL COUNT (BEAKER) (test vkpk=387) 2.05 M/ L 4.20-5.80 HEMOGLOBIN (BEAKER) (test ybhm=981) 7.1 GM/DL 13.0-16.8 HEMATOCRIT (BEAKER) (test cxrd=679) 21.1 % 40.0-50.0 MEAN CORPUSCULAR VOLUME (BEAKER) (test qzkm=424) 103.0 fL 82.0-98.0 MEAN CORPUSCULAR HEMOGLOBIN (BEAKER) (test 34.8 pg 27.0-33.0 xiok=914) MEAN CORPUSCULAR HEMOGLOBIN CONC (BEAKER) (test 33.8 GM/DL 32.0-36.0 kofc=705) RED CELL DISTRIBUTION WIDTH (BEAKER) (test 13.9 % 10.3-14.2 twpu=642) PLATELET COUNT (BEAKER) (test rotk=773) 71 K/CU MM 150-430 MEAN PLATELET VOLUME (BEAKER) (test uqvo=893) 6.6 fL 6.5-10.5 NUCLEATED RED BLOOD CELLS (BEAKER) (test 0 /100 WBC 0-0 iwjm=901) NEUTROPHILS RELATIVE PERCENT (BEAKER) (test 68 % aywp=716) LYMPHOCYTES RELATIVE PERCENT (BEAKER) (test 16 % omax=904) MONOCYTES RELATIVE PERCENT (BEAKER) (test 12 % ckcp=662) EOSINOPHILS RELATIVE PERCENT (BEAKER) (test 4 % brpr=976) BASOPHILS RELATIVE PERCENT (BEAKER) (test 1 % htgy=757) NEUTROPHILS ABSOLUTE COUNT (BEAKER) (test 3.21 K/ L 1.80-8.00 fwqv=722) LYMPHOCYTES ABSOLUTE COUNT (BEAKER) (test 0.75 K/ L 1.48-4.50 ampy=349) MONOCYTES ABSOLUTE COUNT (BEAKER) (test jkub=574) 0.57 K/ L 0.00-1.30 EOSINOPHILS ABSOLUTE COUNT (BEAKER) (test 0.19 K/ L 0.00-0.50 cldl=707) BASOPHILS ABSOLUTE COUNT (BEAKER) (test lhua=284) 0.03 K/ L 0.00-0.20 0.00PROTHROMBIN [id number] 05:56:00 Test Item Value Reference Range Comments PROTIME (BEAKER) (test ycff=032) 26.4 seconds 11.7-14.7 INR (BEAKER) (test vcie=926) 2.4 <=5.9 RECOMMENDED COUMADIN/WARFARIN INR THERAPY RANGESSTANDARD DOSE: 2.0 - 3.0 Includes: PROPHYLAXIS forvenous thrombosis, systemic embolization; TREATMENT for venous thrombosis and/or pulmonary embolus.HIGH RISK: Target INR is 2.5-3.5 for patients with mechanical heart valves.BASIC METABOLIC [id number] 04:44: 00 Test Item Value Reference Range Comments SODIUM (BEAKER) (test 134 meq/L 136-145 jqet=397) POTASSIUM (BEAKER) (test 3.6 meq/L 3.5-5.1 tfyy=985) CHLORIDE (BEAKER) (test 108 meq/L 98-107 dzxa=847) CO2 (BEAKER) (test 19 meq/L 22-29 zavm=890) BLOOD UREA NITROGEN 12 mg/dL 7-21 (BEAKER) (test xknq=718) CREATININE (BEAKER) (test 1.32 mg/dL 0.57-1.25 phcd=242) GLUCOSE RANDOM (BEAKER) 82 mg/dL 70-105 (test unfx=627) CALCIUM (BEAKER) (test 7.9 mg/dL 8.4-10.2 hwzx=868) EGFR (BEAKER) (test 57 mL/min/1.73 sq m ESTIMATED GFR IS NOT qbcz=9012) ACCURATE CREATININE CLEARANCE IN PREDICTING GLOMERULAR FILTRATION RATE. ESTIMATED GFR IS NOT APPLICABLE FOR DIALYSIS PATIENTS. Specimen moderately ictericHEPATIC FUNCTION [id number] 04:42:00 Test Item Value Reference Range Comments TOTAL PROTEIN (BEAKER) (test qyjt=585) 5.8 gm/dL 6.0-8.3 ALBUMIN (BEAKER) (test qnur=8966) 3.1 g/dL 3.5-5.0 BILIRUBIN TOTAL (BEAKER) (test olgz=223) 5.1 mg/dL 0.2-1.2 BILIRUBIN DIRECT (BEAKER) (test urbk=565) 2.7 mg/dL 0.1-0.5 ALKALINE PHOSPHATASE (BEAKER) (test rsqd=937) 51 U/L 40-150 AST (SGOT) (BEAKER) (test tnzc=200) 27 U/L 5-34 ALT (SGPT) (BEAKER) (test zbir=839) 7 U/L 6-55 Specimen moderately ictericCBC W/PLT COUNT & AUTO [id number] 04: 35:00 Test Item Value Reference Range Comments WHITE BLOOD CELL COUNT (BEAKER) (test oklz=533) 4.6 K/ L 4.0-10.0 RED BLOOD CELL COUNT (BEAKER) (test jdit=284) 2.06 M/ L 4.20-5.80 HEMOGLOBIN (BEAKER) (test qpis=195) 7.2 GM/DL 13.0-16.8 HEMATOCRIT (BEAKER) (test zxqt=361) 21.5 % 40.0-50.0 MEAN CORPUSCULAR VOLUME (BEAKER) (test zaty=399) 104.0 fL 82.0-98.0 MEAN CORPUSCULAR HEMOGLOBIN (BEAKER) (test 35.0 pg 27.0-33.0 uxzr=624) MEAN CORPUSCULAR HEMOGLOBIN CONC (BEAKER) (test 33.6 GM/DL 32.0-36.0 wxad=752) RED CELL DISTRIBUTION WIDTH (BEAKER) (test 13.4 % 10.3-14.2 uykn=804) PLATELET COUNT (BEAKER) (test zkop=711) 76 K/CU MM 150-430 MEAN PLATELET VOLUME (BEAKER) (test hdmd=710) 6.5 fL 6.5-10.5 NUCLEATED RED BLOOD CELLS (BEAKER) (test 0 /100 WBC 0-0 vwrb=670) NEUTROPHILS RELATIVE PERCENT (BEAKER) (test 64 % dtcw=903) LYMPHOCYTES RELATIVE PERCENT (BEAKER) (test 16 % lpcq=182) MONOCYTES RELATIVE PERCENT (BEAKER) (test 16 % xujz=490) EOSINOPHILS RELATIVE PERCENT (BEAKER) (test 4 % lzxf=094) BASOPHILS RELATIVE PERCENT (BEAKER) (test 1 % pclc=094) NEUTROPHILS ABSOLUTE COUNT (BEAKER) (test 2.89 K/ L 1.80-8.00 aile=345) LYMPHOCYTES ABSOLUTE COUNT (BEAKER) (test 0.72 K/ L 1.48-4.50 fpkm=983) MONOCYTES ABSOLUTE COUNT (BEAKER) (test iiqn=892) 0.71 K/ L 0.00-1.30 EOSINOPHILS ABSOLUTE COUNT (BEAKER) (test 0.20 K/ L 0.00-0.50 zhpp=203) BASOPHILS ABSOLUTE COUNT (BEAKER) (test gwkj=771) 0.03 K/ L 0.00-0.20 0.00PROTHROMBIN [id number] 04:33:00 Test Item Value Reference Range Comments PROTIME (BEAKER) (test memh=869) 30.2 seconds 11.7-14.7 INR (BEAKER) (test wdtg=084) 2.9 <=5.9 RECOMMENDED COUMADIN/WARFARIN INR THERAPY RANGESSTANDARD DOSE: 2.0 - 3.0 Includes: PROPHYLAXIS forvenous thrombosis, systemic embolization; TREATMENT for venous thrombosis and/or pulmonary embolus.HIGH RISK: Target INR is 2.5-3.5 for patients with mechanical heart valves.VANCOMYCIN LEVEL, [id number] 17: 04:00 Test Item Value Reference Range Comments VANCOMYCIN TROUGH (BEAKER) (test ilnn=026) 12.2 ug/mL 10.0-20.0 URINE [id number] 14:25:00 Test Item Value Reference Range Comments CULTURE (BEAKER) (test qzfy=2228) No growth TSH/FREE T4 IF [id number] 14:22:00 Test Item Value Reference Range Comments THYROID STIMULATING HORMONE (BEAKER) (test 3.53 uIU/mL 0.35-4.94 olgh=362) URINE [id number] 11:43:00 Test Item Value Reference Range Comments CULTURE (BEAKER) (test esuh=1613) No growth CBC W/PLT COUNT & AUTO [id number] 07:55:00 Test Item Value Reference Range Comments WHITE BLOOD CELL COUNT (BEAKER) (test huub=668) 4.5 K/ L 4.0-10.0 RED BLOOD CELL COUNT (BEAKER) (test euzv=616) 2.06 M/ L 4.20-5.80 HEMOGLOBIN (BEAKER) (test fxiv=738) 7.1 GM/DL 13.0-16.8 HEMATOCRIT (BEAKER) (test qlog=866) 21.5 % 40.0-50.0 MEAN CORPUSCULAR VOLUME (BEAKER) (test xapy=900) 104.0 fL 82.0-98.0 MEAN CORPUSCULAR HEMOGLOBIN (BEAKER) (test 34.5 pg 27.0-33.0 gljr=012) MEAN CORPUSCULAR HEMOGLOBIN CONC (BEAKER) (test 33.1 GM/DL 32.0-36.0 xqok=882) RED CELL DISTRIBUTION WIDTH (BEAKER) (test 13.4 % 10.3-14.2 dcza=723) PLATELET COUNT (BEAKER) (test aebf=808) 79 K/CU MM 150-430 MEAN PLATELET VOLUME (BEAKER) (test pcfi=735) 6.8 fL 6.5-10.5 NUCLEATED RED BLOOD CELLS (BEAKER) (test 0 /100 WBC 0-0 qzle=449) NEUTROPHILS RELATIVE PERCENT (BEAKER) (test 64 % xbgb=600) LYMPHOCYTES RELATIVE PERCENT (BEAKER) (test 16 % wflb=481) MONOCYTES RELATIVE PERCENT (BEAKER) (test 15 % jeej=306) EOSINOPHILS RELATIVE PERCENT (BEAKER) (test 5 % jjkv=560) BASOPHILS RELATIVE PERCENT (BEAKER) (test 0 % npkz=132) NEUTROPHILS ABSOLUTE COUNT (BEAKER) (test 2.88 K/ L 1.80-8.00 yjjn=457) LYMPHOCYTES ABSOLUTE COUNT (BEAKER) (test 0.73 K/ L 1.48-4.50 brqx=571) MONOCYTES ABSOLUTE COUNT (BEAKER) (test jwcu=183) 0.68 K/ L 0.00-1.30 EOSINOPHILS ABSOLUTE COUNT (BEAKER) (test 0.23 K/ L 0.00-0.50 july=091) BASOPHILS ABSOLUTE COUNT (BEAKER) (test awfw=729) 0.02 K/ L 0.00-0.20 [facility]00[facility] [id number] 05:58:00 Test Item Value Reference Range Comments SODIUM (BEAKER) (test 137 meq/L 136-145 nirm=568) POTASSIUM (BEAKER) (test 3.7 meq/L 3.5-5.1 rywo=807) CHLORIDE (BEAKER) (test 110 meq/L 98-107 xshk=029) CO2 (BEAKER) (test 19 meq/L 22-29 ojil=846) BLOOD UREA NITROGEN 12 mg/dL 7-21 (BEAKER) (test xsdt=687) CREATININE (BEAKER) (test 1.29 mg/dL 0.57-1.25 ejik=606) GLUCOSE RANDOM (BEAKER) 80 mg/dL 70-105 (test zeva=687) CALCIUM (BEAKER) (test 8.1 mg/dL 8.4-10.2 cbad=712) EGFR (BEAKER) (test 59 mL/min/1.73 sq m ESTIMATED GFR IS NOT ccbn=2401) ACCURATE CREATININE CLEARANCE IN PREDICTING GLOMERULAR FILTRATION RATE. ESTIMATED GFR IS NOT APPLICABLE FOR DIALYSIS PATIENTS. Specimen moderately ictericHEPATIC FUNCTION [id number] 05:58:00 Test Item Value Reference Range Comments TOTAL PROTEIN (BEAKER) (test edrb=355) 5.9 gm/dL 6.0-8.3 ALBUMIN (BEAKER) (test skzw=1253) 3.4 g/dL 3.5-5.0 BILIRUBIN TOTAL (BEAKER) (test bsdu=219) 5.6 mg/dL 0.2-1.2 BILIRUBIN DIRECT (BEAKER) (test rvkn=097) 2.6 mg/dL 0.1-0.5 ALKALINE PHOSPHATASE (BEAKER) (test qnyh=627) 50 U/L 40-150 AST (SGOT) (BEAKER) (test ijtr=257) 30 U/L 5-34 ALT (SGPT) (BEAKER) (test sray=062) 9 U/L 6-55 Specimen moderately ictericPROTHROMBIN [id number] 05:31:00 Test Item Value Reference Range Comments PROTIME (BEAKER) (test ibkk=029) 29.0 seconds 11.7-14.7 INR (BEAKER) (test iojn=651) 2.7 <=5.9 RECOMMENDED COUMADIN/WARFARIN INR THERAPY RANGESSTANDARD DOSE: 2.0 - 3.0 Includes: PROPHYLAXIS forvenous thrombosis, systemic embolization; TREATMENT for venous thrombosis and/or pulmonary embolus.HIGH RISK: Target INR is 2.5-3.5 for patients with mechanical heart valves.ANAEROBIC [id number] 05:15:00 Test Item Value Reference Range Comments CULTURE (BEAKER) (test tbzp=4345) No anaerobes isolated BLOOD [id number] 00:00:00 Test Item Value Reference Range Comments CULTURE (BEAKER) (test uzsy=8969) No growth in 5 days BLOOD [id number] 00:00:00 Test Item Value Reference Range Comments CULTURE (BEAKER) (test lhhh=7464) No growth in 5 days URINALYSIS W/ REFLEX URINE [id number] 08:28:00 Test Item Value Reference Range Comments COLOR (BEAKER) (test sawu=609) Yellow CLARITY (BEAKER) (test zvgt=731) Clear SPECIFIC GRAVITY UA (BEAKER) (test mbgo=636) 1.006 1.001-1.035 PH UA (BEAKER) (test hokn=215) 6.5 5.0-8.0 PROTEIN UA (BEAKER) (test auuy=847) Negative Negative GLUCOSE UA (BEAKER) (test retw=790) Negative Negative KETONES UA (BEAKER) (test tybj=181) Negative Negative BILIRUBIN UA (BEAKER) (test epfo=745) Negative Negative BLOOD UA (BEAKER) (test kzyg=922) Negative Negative NITRITE UA (BEAKER) (test kwik=838) Negative Negative LEUKOCYTE ESTERASE UA (BEAKER) (test cvpf=402) Small Negative UROBILINOGEN UA (BEAKER) (test iyou=770) 0.2 mg/dL 0.2-1.0 RBC UA (BEAKER) (test qpwq=306) 1 /HPF WBC UA (BEAKER) (test ggji=269) 6 /HPF BACTERIA (BEAKER) (test lcax=229) Rare SOURCE(BEAKER) (test rxrk=9789) CBC W/PLT COUNT & AUTO [id number] 07:21:00 Test Item Value Reference Range Comments WHITE BLOOD CELL COUNT (BEAKER) (test ocde=579) 5.9 K/ L 4.0-10.0 RED BLOOD CELL COUNT (BEAKER) (test rcij=062) 2.12 M/ L 4.20-5.80 HEMOGLOBIN (BEAKER) (test hosa=508) 7.3 GM/DL 13.0-16.8 HEMATOCRIT (BEAKER) (test syzi=764) 22.2 % 40.0-50.0 MEAN CORPUSCULAR VOLUME (BEAKER) (test vlmi=809) 105.0 fL 82.0-98.0 MEAN CORPUSCULAR HEMOGLOBIN (BEAKER) (test 34.2 pg 27.0-33.0 yvvc=035) MEAN CORPUSCULAR HEMOGLOBIN CONC (BEAKER) (test 32.7 GM/DL 32.0-36.0 sses=680) RED CELL DISTRIBUTION WIDTH (BEAKER) (test 13.1 % 10.3-14.2 hopm=905) PLATELET COUNT (BEAKER) (test jqdb=046) 80 K/CU MM 150-430 MEAN PLATELET VOLUME (BEAKER) (test qvhc=744) 6.5 fL 6.5-10.5 NUCLEATED RED BLOOD CELLS (BEAKER) (test 0 /100 WBC 0-0 fmcz=344) NEUTROPHILS RELATIVE PERCENT (BEAKER) (test 67 % jcqh=533) LYMPHOCYTES RELATIVE PERCENT (BEAKER) (test 14 % zxre=806) MONOCYTES RELATIVE PERCENT (BEAKER) (test 14 % cibn=981) EOSINOPHILS RELATIVE PERCENT (BEAKER) (test 4 % hdba=842) BASOPHILS RELATIVE PERCENT (BEAKER) (test 0 % kfgf=907) NEUTROPHILS ABSOLUTE COUNT (BEAKER) (test 3.97 K/ L 1.80-8.00 zkqx=709) LYMPHOCYTES ABSOLUTE COUNT (BEAKER) (test 0.85 K/ L 1.48-4.50 irxu=157) MONOCYTES ABSOLUTE COUNT (BEAKER) (test rlbb=739) 0.81 K/ L 0.00-1.30 EOSINOPHILS ABSOLUTE COUNT (BEAKER) (test 0.25 K/ L 0.00-0.50 zmga=600) BASOPHILS ABSOLUTE COUNT (BEAKER) (test jiwo=367) 0.03 K/ L 0.00-0.20 [id number] 06:35:00 Test Item Value Reference Range Comments PHOSPHORUS (BEAKER) (test gwqk=508) 3.5 mg/dL 2.3-4.7 [id number] 06:35:00 Test Item Value Reference Range Comments MAGNESIUM (BEAKER) (test vmwt=435) 1.7 mg/dL 1.6-2.6 BASIC METABOLIC [id number] 06:35:00 Test Item Value Reference Range Comments SODIUM (BEAKER) (test 137 meq/L 136-145 xqje=820) POTASSIUM (BEAKER) (test 4.0 meq/L 3.5-5.1 sxoq=254) CHLORIDE (BEAKER) (test 109 meq/L 98-107 xrgp=338) CO2 (BEAKER) (test 20 meq/L 22-29 agoc=318) BLOOD UREA NITROGEN 13 mg/dL 7-21 (BEAKER) (test emvz=164) CREATININE (BEAKER) (test 1.56 mg/dL 0.57-1.25 czys=702) GLUCOSE RANDOM (BEAKER) 85 mg/dL 70-105 (test sssy=868) CALCIUM (BEAKER) (test 8.4 mg/dL 8.4-10.2 jxeo=621) EGFR (BEAKER) (test 47 mL/min/1.73 sq m ESTIMATED GFR IS NOT pxvt=5620) ACCURATE CREATININE CLEARANCE IN PREDICTING GLOMERULAR FILTRATION RATE. ESTIMATED GFR IS NOT APPLICABLE FOR DIALYSIS PATIENTS. Specimen moderately ictericHEPATIC FUNCTION [id number] 06:35:00 Test Item Value Reference Range Comments TOTAL PROTEIN (BEAKER) (test vtrk=539) 6.5 gm/dL 6.0-8.3 ALBUMIN (BEAKER) (test atku=9444) 3.8 g/dL 3.5-5.0 BILIRUBIN TOTAL (BEAKER) (test dfvr=498) 6.1 mg/dL 0.2-1.2 BILIRUBIN DIRECT (BEAKER) (test yoch=825) 2.9 mg/dL 0.1-0.5 ALKALINE PHOSPHATASE (BEAKER) (test phqj=191) 54 U/L 40-150 AST (SGOT) (BEAKER) (test xjhh=874) 28 U/L 5-34 ALT (SGPT) (BEAKER) (test fkrf=543) 7 U/L 6-55 Specimen moderately ictericPROTHROMBIN TIME/[id number] 06:06:00 Test Item Value Reference Range Comments PROTIME (BEAKER) (test bbav=924) 26.1 seconds 11.7-14.7 INR (BEAKER) (test rbmv=101) 2.4 <=5.9 RECOMMENDED COUMADIN/WARFARIN INR THERAPY RANGESSTANDARD DOSE: 2.0 - 3.0 Includes: PROPHYLAXIS forvenous thrombosis, systemic embolization; TREATMENT for venous thrombosis and/or pulmonary embolus.HIGH RISK: Target INR is 2.5-3.5 for patients with mechanical heart valves.CALCIUM, [id number] 06:06:00 Test Item Value Reference Range Comments CALCIUM IONIZED (BEAKER) (test hgst=807) 1.06 mmol/L 1.12-1.27 PH, BLOOD (BEAKER) (test ccti=8742) 7.46 SURGICALLY OBTAINED CULTURE + GRAM [id number] 23:51:00 Test Item Value Reference Range Comments CULTURE (BEAKER) (test jrhp=1983) No growth GRAM STAIN RESULT (BEAKER) (test 1+ WBCs ootq=2291) GRAM STAIN RESULT (BEAKER) (test No organisms seen pupr=25512) BODY FLUID CULTURE + GRAM [id number] 23:42:00 Test Item Value Reference Range Comments CULTURE (BEAKER) (test bevc=5526) No growth GRAM STAIN RESULT (BEAKER) (test 1+ WBCs qcnj=3379) GRAM STAIN RESULT (BEAKER) (test No organisms seen kpcp=52862) BODY FLUID CELL COUNT WITH [id number] 19:59:00 Test Item Value Reference Range Comments APPEARANCE FLUID (BEAKER) (test zeii=947) Hazy Clear COLOR FLUID (BEAKER) (test rqjo=107) Yellow Colorless, Straw RBC FLUID (BEAKER) (test fyth=405) 2435 /cu mm <=1 ADJUSTED WBC FLUID (BEAKER) (test wsgk=2692) 441 /cu mm <=5 LINING CELLS (BEAKER) (test elxe=3171) 9 /cu mm <=1 NEUTROPHILS FLUID (BEAKER) (test qezd=5948) 16 % LYMPHS FLUID (BEAKER) (test pbql=127) 10 % MONO/MACROPHAGE FLUID (BEAKER) (test lunw=456) 74 % EOSINOPHILS FLUID (BEAKER) (test teag=559) 0 % BASO FLUID (BEAKER) (test cplj=833) 0 % CONTAINER BODY FLUID (BEAKER) (test uwna=8800) EDTA Tube [id number] 11:01:00 Test Item Value Reference Range Comments PROCALCITONIN (BEAKER) (test ctsg=1222) 0.25 ng/mL <0.05 SEPSIS RISK (ng/mL)Low: 0.05-0.50Intermediate: 0.51-2.00High: & gt;=2.01CBC W/PLT COUNT & AUTO [id number] 08:40:00 Test Item Value Reference Range Comments WHITE BLOOD CELL COUNT (BEAKER) (test secs=624) 6.3 K/ L 4.0-10.0 RED BLOOD CELL COUNT (BEAKER) (test govp=042) 2.07 M/ L 4.20-5.80 HEMOGLOBIN (BEAKER) (test ular=159) 7.1 GM/DL 13.0-16.8 HEMATOCRIT (BEAKER) (test nmsk=147) 21.9 % 40.0-50.0 MEAN CORPUSCULAR VOLUME (BEAKER) (test ucep=529) 106.0 fL 82.0-98.0 MEAN CORPUSCULAR HEMOGLOBIN (BEAKER) (test 34.1 pg 27.0-33.0 vkbf=998) MEAN CORPUSCULAR HEMOGLOBIN CONC (BEAKER) (test 32.2 GM/DL 32.0-36.0 aqcx=447) RED CELL DISTRIBUTION WIDTH (BEAKER) (test 13.1 % 10.3-14.2 ueky=797) PLATELET COUNT (BEAKER) (test yfvq=671) 78 K/CU MM 150-430 MEAN PLATELET VOLUME (BEAKER) (test jvhg=245) 6.6 fL 6.5-10.5 NUCLEATED RED BLOOD CELLS (BEAKER) (test 0 /100 WBC 0-0 kvdw=765) NEUTROPHILS RELATIVE PERCENT (BEAKER) (test 73 % lhiu=707) LYMPHOCYTES RELATIVE PERCENT (BEAKER) (test 10 % basw=152) MONOCYTES RELATIVE PERCENT (BEAKER) (test 13 % penh=384) EOSINOPHILS RELATIVE PERCENT (BEAKER) (test 4 % isdf=041) BASOPHILS RELATIVE PERCENT (BEAKER) (test 0 % axcm=682) NEUTROPHILS ABSOLUTE COUNT (BEAKER) (test 4.60 K/ L 1.80-8.00 bamq=038) LYMPHOCYTES ABSOLUTE COUNT (BEAKER) (test 0.64 K/ L 1.48-4.50 jijo=259) MONOCYTES ABSOLUTE COUNT (BEAKER) (test fury=167) 0.81 K/ L 0.00-1.30 EOSINOPHILS ABSOLUTE COUNT (BEAKER) (test 0.23 K/ L 0.00-0.50 dvyt=107) BASOPHILS ABSOLUTE COUNT (BEAKER) (test kolw=212) 0.01 K/ L 0.00-0.20 [id number] 06:50:00 Test Item Value Reference Range Comments PHOSPHORUS (BEAKER) (test mkny=659) 3.0 mg/dL 2.3-4.7 [id number] 06:50:00 Test Item Value Reference Range Comments MAGNESIUM (BEAKER) (test byec=263) 1.9 mg/dL 1.6-2.6 BASIC METABOLIC [id number] 06:50:00 Test Item Value Reference Range Comments SODIUM (BEAKER) (test 135 meq/L 136-145 trnc=644) POTASSIUM (BEAKER) (test 4.2 meq/L 3.5-5.1 oguq=892) CHLORIDE (BEAKER) (test 106 meq/L 98-107 lvry=567) CO2 (BEAKER) (test 21 meq/L 22-29 xqvn=254) BLOOD UREA NITROGEN 19 mg/dL 7-21 (BEAKER) (test uafp=261) CREATININE (BEAKER) (test 1.62 mg/dL 0.57-1.25 bkti=235) GLUCOSE RANDOM (BEAKER) 98 mg/dL 70-105 (test yarr=841) CALCIUM (BEAKER) (test 8.6 mg/dL 8.4-10.2 lzyj=144) EGFR (BEAKER) (test 45 mL/min/1.73 sq m ESTIMATED GFR IS NOT movq=2587) ACCURATE CREATININE CLEARANCE IN PREDICTING GLOMERULAR FILTRATION RATE. ESTIMATED GFR IS NOT APPLICABLE FOR DIALYSIS PATIENTS. Specimen moderately ictericHEPATIC FUNCTION [id number] 06:50:00 Test Item Value Reference Range Comments TOTAL PROTEIN (BEAKER) (test vnxf=799) 6.3 gm/dL 6.0-8.3 ALBUMIN (BEAKER) (test ashj=9310) 3.7 g/dL 3.5-5.0 BILIRUBIN TOTAL (BEAKER) (test xsjk=371) 6.2 mg/dL 0.2-1.2 BILIRUBIN DIRECT (BEAKER) (test cgnm=428) 2.8 mg/dL 0.1-0.5 ALKALINE PHOSPHATASE (BEAKER) (test ivyl=853) 54 U/L 40-150 AST (SGOT) (BEAKER) (test vzmk=311) 29 U/L 5-34 ALT (SGPT) (BEAKER) (test rups=554) 8 U/L 6-55 Specimen moderately ictericCALCIUM, [id number] 06:48:00 Test Item Value Reference Range Comments CALCIUM IONIZED (BEAKER) (test pzyb=359) 1.12 mmol/L 1.12-1.27 PH, BLOOD (BEAKER) (test xhpy=4670) 7.33 PROTHROMBIN TIME/[id number] 06:24:00 Test Item Value Reference Range Comments PROTIME (BEAKER) (test fues=380) 25.4 seconds 11.7-14.7 INR (BEAKER) (test eqru=369) 2.3 <=5.9 RECOMMENDED COUMADIN/WARFARIN INR THERAPY RANGESSTANDARD DOSE: 2.0 - 3.0 Includes: PROPHYLAXIS forvenous thrombosis, systemic embolization; TREATMENT for venous thrombosis and/or pulmonary embolus.HIGH RISK: Target INR is 2.5-3.5 for patients with mechanical heart valves.[id number] 11:17:00 Test Item Value Reference Range Comments FIBRINOGEN LEVEL (BEAKER) (test rzpn=246) 115 mg/dl 225-434 CALCIUM, [id number] 06:04:00 Test Item Value Reference Range Comments CALCIUM IONIZED (BEAKER) (test elgi=503) 1.08 mmol/L 1.12-1.27 PH, BLOOD (BEAKER) (test kzdt=0043) 7.41 CBC W/PLT COUNT & AUTO [id number] 05:28:00 Test Item Value Reference Range Comments WHITE BLOOD CELL COUNT (BEAKER) (test ophr=622) 5.6 K/ L 4.0-10.0 RED BLOOD CELL COUNT (BEAKER) (test zplu=428) 2.00 M/ L 4.20-5.80 HEMOGLOBIN (BEAKER) (test yyhg=527) 7.2 GM/DL 13.0-16.8 HEMATOCRIT (BEAKER) (test lqhs=760) 21.2 % 40.0-50.0 MEAN CORPUSCULAR VOLUME (BEAKER) (test cujz=004) 106.0 fL 82.0-98.0 MEAN CORPUSCULAR HEMOGLOBIN (BEAKER) (test 36.0 pg 27.0-33.0 blps=698) MEAN CORPUSCULAR HEMOGLOBIN CONC (BEAKER) (test 34.0 GM/DL 32.0-36.0 ziqx=619) RED CELL DISTRIBUTION WIDTH (BEAKER) (test 13.9 % 10.3-14.2 mumz=104) PLATELET COUNT (BEAKER) (test zeog=248) 74 K/CU MM 150-430 MEAN PLATELET VOLUME (BEAKER) (test qlfl=791) 6.6 fL 6.5-10.5 NUCLEATED RED BLOOD CELLS (BEAKER) (test 0 /100 WBC 0-0 hgpp=323) NEUTROPHILS RELATIVE PERCENT (BEAKER) (test 66 % lhbh=541) LYMPHOCYTES RELATIVE PERCENT (BEAKER) (test 14 % wkbf=701) MONOCYTES RELATIVE PERCENT (BEAKER) (test 13 % huzr=497) EOSINOPHILS RELATIVE PERCENT (BEAKER) (test 7 % kqen=186) BASOPHILS RELATIVE PERCENT (BEAKER) (test 0 % hicq=622) NEUTROPHILS ABSOLUTE COUNT (BEAKER) (test 3.67 K/ L 1.80-8.00 prau=637) LYMPHOCYTES ABSOLUTE COUNT (BEAKER) (test 0.80 K/ L 1.48-4.50 ndaf=532) MONOCYTES ABSOLUTE COUNT (BEAKER) (test xnfj=165) 0.69 K/ L 0.00-1.30 EOSINOPHILS ABSOLUTE COUNT (BEAKER) (test 0.38 K/ L 0.00-0.50 yhxr=605) BASOPHILS ABSOLUTE COUNT (BEAKER) (test huuc=842) 0.02 K/ L 0.00-0.20 0.00PROTHROMBIN [id number] 05:11:00 Test Item Value Reference Range Comments PROTIME (BEAKER) (test czpe=829) 25.9 seconds 11.7-14.7 INR (BEAKER) (test orpt=034) 2.4 <=5.9 RECOMMENDED COUMADIN/WARFARIN INR THERAPY RANGESSTANDARD DOSE: 2.0 - 3.0 Includes: PROPHYLAXIS forvenous thrombosis, systemic embolization; TREATMENT for venous thrombosis and/or pulmonary embolus.HIGH RISK: Target INR is 2.5-3.5 for patients with mechanical heart valves.[id number] 05:03:00 Test Item Value Reference Range Comments PHOSPHORUS (BEAKER) (test kzfa=245) 3.5 mg/dL 2.3-4.7 [id number] 05:03:00 Test Item Value Reference Range Comments MAGNESIUM (BEAKER) (test kgpj=819) 1.7 mg/dL 1.6-2.6 BASIC METABOLIC [id number] 05:03:00 Test Item Value Reference Range Comments SODIUM (BEAKER) (test 135 meq/L 136-145 cdax=173) POTASSIUM (BEAKER) (test 4.0 meq/L 3.5-5.1 lgjc=142) CHLORIDE (BEAKER) (test 107 meq/L 98-107 ujln=309) CO2 (BEAKER) (test 20 meq/L 22-29 cdyn=518) BLOOD UREA NITROGEN 22 mg/dL 7-21 (BEAKER) (test gkkv=825) CREATININE (BEAKER) (test 1.77 mg/dL 0.57-1.25 uynm=708) GLUCOSE RANDOM (BEAKER) 83 mg/dL 70-105 (test rtrt=206) CALCIUM (BEAKER) (test 8.3 mg/dL 8.4-10.2 ylmd=158) EGFR (BEAKER) (test 41 mL/min/1.73 sq m ESTIMATED GFR IS NOT jxst=4298) ACCURATE CREATININE CLEARANCE IN PREDICTING GLOMERULAR FILTRATION RATE. ESTIMATED GFR IS NOT APPLICABLE FOR DIALYSIS PATIENTS. Specimen moderately ictericHEPATIC FUNCTION [id number] 05:03:00 Test Item Value Reference Range Comments TOTAL PROTEIN (BEAKER) (test qoqi=342) 6.2 gm/dL 6.0-8.3 ALBUMIN (BEAKER) (test qfhc=7402) 3.7 g/dL 3.5-5.0 BILIRUBIN TOTAL (BEAKER) (test legb=737) 6.0 mg/dL 0.2-1.2 BILIRUBIN DIRECT (BEAKER) (test eqla=928) 2.6 mg/dL 0.1-0.5 ALKALINE PHOSPHATASE (BEAKER) (test jqqn=235) 48 U/L 40-150 AST (SGOT) (BEAKER) (test fpaf=574) 26 U/L 5-34 ALT (SGPT) (BEAKER) (test alji=589) 8 U/L 6-55 Specimen moderately ictericURINE [id number] 14:42:00 Test Item Value Reference Range Comments CULTURE (BEAKER) (test euhb=4854) No growth ANTI-NUCLEAR ANTIBODY (CHERYL)[id number] 13:32:00 Test Item Value Reference Range Comments ANTI-NUCLEAR ANTIBODY (CHERYL) (BEAKER) (test Negative Negative djsz=871) PLATELET [id number] 06:30:00 Test Item Value Reference Range Comments PLATELET COUNT (BEAKER) (test lsig=693) 104 K/CU MM 150-430 [id number] 06:22:00 Test Item Value Reference Range Comments FIBRINOGEN LEVEL (BEAKER) (test iuck=550) 106 mg/dl 225-434 [id number] 06:16:00 Test Item Value Reference Range Comments PARTIAL THROMBOPLASTIN TIME (BEAKER) (test 48.1 seconds 22.5-36.0 eisg=362) PROTHROMBIN [id number] 06:15:00 Test Item Value Reference Range Comments PROTIME (BEAKER) (test mgjp=995) 23.5 seconds 11.7-14.7 INR (BEAKER) (test uvpk=061) 2.1 <=5.9 RECOMMENDED COUMADIN/WARFARIN INR THERAPY RANGESSTANDARD DOSE: 2.0 - 3.0 Includes: PROPHYLAXIS forvenous thrombosis, systemic embolization; TREATMENT for venous thrombosis and/or pulmonary embolus.HIGH RISK: Target INR is 2.5-3.5 for patients with mechanical heart valves.[id number] 06:12:00 Test Item Value Reference Range Comments MAGNESIUM (BEAKER) (test 2.0 mg/dL 1.6-2.6 Specimen slightly hemolyzed jiww=290) [id number] 06:12:00 Test Item Value Reference Range Comments PHOSPHORUS (BEAKER) (test 5.0 mg/dL 2.3-4.7 Specimen slightly hemolyzed poox=535) BASIC METABOLIC [id number] 06:12:00 Test Item Value Reference Range Comments SODIUM (BEAKER) (test 135 meq/L 136-145 zhmf=872) POTASSIUM (BEAKER) (test 4.7 meq/L 3.5-5.1 Specimen slightly pcwj=115) hemolyzed CHLORIDE (BEAKER) (test 107 meq/L 98-107 vjnq=215) CO2 (BEAKER) (test 20 meq/L 22-29 mizm=738) BLOOD UREA NITROGEN 18 mg/dL 7-21 (BEAKER) (test gjuv=481) CREATININE (BEAKER) (test 1.74 mg/dL 0.57-1.25 Specimen slightly gdup=339) hemolyzed GLUCOSE RANDOM (BEAKER) 76 mg/dL 70-105 (test gklw=328) CALCIUM (BEAKER) (test 8.1 mg/dL 8.4-10.2 avju=929) EGFR (BEAKER) (test 42 mL/min/1.73 sq m ESTIMATED GFR IS NOT tuod=4655) ACCURATE CREATININE CLEARANCE IN PREDICTING GLOMERULAR FILTRATION RATE. ESTIMATED GFR IS NOT APPLICABLE FOR DIALYSIS PATIENTS. Specimen moderately ictericHEPATIC FUNCTION [id number] 06:12:00 Test Item Value Reference Range Comments TOTAL PROTEIN (BEAKER) (test 6.6 gm/dL 6.0-8.3 Specimen slightly hemolyzed zsni=990) ALBUMIN (BEAKER) (test 3.7 g/dL 3.5-5.0 Specimen slightly hemolyzed berv=1827) BILIRUBIN TOTAL (BEAKER) (test 5.7 mg/dL 0.2-1.2 Specimen slightly hemolyzed xmcp=522) BILIRUBIN DIRECT (BEAKER) (test 2.7 mg/dL 0.1-0.5 Specimen slightly hemolyzed sltf=403) ALKALINE PHOSPHATASE (BEAKER) 56 U/L 40-150 (test lczb=245) AST (SGOT) (BEAKER) (test 29 U/L 5-34 Specimen slightly hemolyzed olvk=489) ALT (SGPT) (BEAKER) (test 7 U/L 6-55 Specimen slightly hemolyzed ssep=345) Specimen moderately ictericLACTIC ACID, VENOUS, WHOLE [id number] 06:04:00 Test Item Value Reference Range Comments LACTATE BLOOD VENOUS (2) (BEAKER) (test 1.0 mmol/L 0.5-2.2 mohf=2902) Effective 02/28/2016: Units/Reference Range ChangeNew: 0.5-2.2 mmol/L Previous: 5 -20 mg/dLSpecimen moderately ictericCALCIUM, [id number] 05:56:00 Test Item Value Reference Range Comments CALCIUM IONIZED (BEAKER) (test rmxu=489) 1.00 mmol/L 1.12-1.27 PH, BLOOD (BEAKER) (test usab=1309) 7.34 [id number] 21:34:00 Test Item Value Reference Range Comments FIBRINOGEN LEVEL (BEAKER) (test ddnd=982) 105 mg/dl 225-434 PLATELET [id number] 20:52:00 Test Item Value Reference Range Comments PLATELET COUNT (BEAKER) (test idke=524) 77 K/CU MM 150-430 PT/[id number] 20:51:00 Test Item Value Reference Range Comments PROTIME (BEAKER) (test zdwj=795) 21.1 seconds 11.7-14.7 INR (BEAKER) (test qtsk=829) 1.8 <=5.9 PARTIAL THROMBOPLASTIN TIME (BEAKER) (test 47.3 seconds 22.5-36.0 fucd=610) RECOMMENDED COUMADIN/WARFARIN INR THERAPY RANGESSTANDARD DOSE: 2.0 - 3.0 Includes: PROPHYLAXIS forvenous thrombosis, systemic embolization; TREATMENT for venous thrombosis and/or pulmonary embolus.HIGH RISK: Target INR is 2.5-3.5 for patients with mechanical heart valves.[id number] 20:51:00 Test Item Value Reference Range Comments PARTIAL THROMBOPLASTIN TIME (BEAKER) (test 47.3 seconds 22.5-36.0 dkwt=949) PROTHROMBIN [id number] 20:50:00 Test Item Value Reference Range Comments PROTIME (BEAKER) (test zlty=303) 21.1 seconds 11.7-14.7 INR (BEAKER) (test moee=412) 1.8 <=5.9 RECOMMENDED COUMADIN/WARFARIN INR THERAPY RANGESSTANDARD DOSE: 2.0 - 3.0 Includes: PROPHYLAXIS forvenous thrombosis, systemic embolization; TREATMENT for venous thrombosis and/or pulmonary embolus.HIGH RISK: Target INR is 2.5-3.5 for patients with mechanical heart valves.[id number] 19:30:00 Test Item Value Reference Range Comments PARTIAL THROMBOPLASTIN TIME (BEAKER) (test 45.1 seconds 22.5-36.0 lcgs=132) PROTHROMBIN TIME/[id number] 19:29:00 Test Item Value Reference Range Comments PROTIME (BEAKER) (test rgkj=357) 28.2 seconds 11.7-14.7 INR (BEAKER) (test wvsk=348) 2.6 <=5.9 RECOMMENDED COUMADIN/WARFARIN INR THERAPY RANGESSTANDARD DOSE: 2.0 - 3.0 Includes: PROPHYLAXIS forvenous thrombosis, systemic embolization; TREATMENT for venous thrombosis and/or pulmonary embolus.HIGH RISK: Target INR is 2.5-3.5 for patients with mechanical heart valves.BODY FLUID CELL COUNT WITH [id number] 18:53:00 Test Item Value Reference Range Comments APPEARANCE FLUID (BEAKER) (test enwr=919) Hazy Clear COLOR FLUID (BEAKER) (test jgxj=381) Yellow Colorless, Straw RBC FLUID (BEAKER) (test qeom=883) 900 /cu mm <=1 ADJUSTED WBC FLUID (BEAKER) (test oxgv=6535) 306 /cu mm <=5 LINING CELLS (BEAKER) (test vyct=1951) 64 /cu mm <=1 NEUTROPHILS FLUID (BEAKER) (test yshc=1990) 4 % LYMPHS FLUID (BEAKER) (test ezvq=620) 18 % MONO/MACROPHAGE FLUID (BEAKER) (test jikp=137) 78 % EOSINOPHILS FLUID (BEAKER) (test bvfr=232) 0 % BASO FLUID (BEAKER) (test imoa=855) 0 % CONTAINER BODY FLUID (BEAKER) (test pzle=3231) EDTA Tube [id number] 16:56:00 Test Item Value Reference Range Comments AMYLASE (BEAKER) (test wtni=779) 37 U/L 25-125 Specimen moderately ictericCOMPREHENSIVE METABOLIC [id number] 16:56:00 Test Item Value Reference Range Comments TOTAL PROTEIN (BEAKER) 6.1 gm/dL 6.0-8.3 (test fvcq=919) ALBUMIN (BEAKER) (test 3.2 g/dL 3.5-5.0 uhzs=0712) ALKALINE PHOSPHATASE 67 U/L 40-150 (BEAKER) (test rwtl=717) BILIRUBIN TOTAL (BEAKER) 5.7 mg/dL 0.2-1.2 (test qmdr=468) SODIUM (BEAKER) (test 134 meq/L 136-145 lvqu=011) POTASSIUM (BEAKER) (test 3.8 meq/L 3.5-5.1 vnci=285) CHLORIDE (BEAKER) (test 106 meq/L 98-107 tafc=089) CO2 (BEAKER) (test 19 meq/L 22-29 uuug=140) BLOOD UREA NITROGEN 18 mg/dL 7-21 (BEAKER) (test fhcv=807) CREATININE (BEAKER) (test 1.52 mg/dL 0.57-1.25 pbdr=263) GLUCOSE RANDOM (BEAKER) 112 mg/dL 70-105 (test ojjk=461) CALCIUM (BEAKER) (test 8.3 mg/dL 8.4-10.2 rvea=880) AST (SGOT) (BEAKER) (test 28 U/L 5-34 ikdk=566) ALT (SGPT) (BEAKER) (test 10 U/L 6-55 hobl=213) EGFR (BEAKER) (test 49 mL/min/1.73 sq m ESTIMATED GFR IS NOT rjpv=8443) ACCURATE CREATININE CLEARANCE IN PREDICTING GLOMERULAR FILTRATION RATE. ESTIMATED GFR IS NOT APPLICABLE FOR DIALYSIS PATIENTS. Specimen moderately [id number] 16:56:00 Test Item Value Reference Range Comments LIPASE (BEAKER) (test avce=340) 52 U/L 8-78 Specimen moderately ictericCBC W/PLT COUNT & AUTO [id number] 16: 27:00 Test Item Value Reference Range Comments WHITE BLOOD CELL COUNT (BEAKER) (test mxjk=471) 3.7 K/ L 4.0-10.0 RED BLOOD CELL COUNT (BEAKER) (test mqfp=762) 2.16 M/ L 4.20-5.80 HEMOGLOBIN (BEAKER) (test iidz=023) 7.8 GM/DL 13.0-16.8 HEMATOCRIT (BEAKER) (test lcex=315) 23.1 % 40.0-50.0 MEAN CORPUSCULAR VOLUME (BEAKER) (test jezb=749) 107.0 fL 82.0-98.0 MEAN CORPUSCULAR HEMOGLOBIN (BEAKER) (test 36.0 pg 27.0-33.0 cygz=240) MEAN CORPUSCULAR HEMOGLOBIN CONC (BEAKER) (test 33.6 GM/DL 32.0-36.0 gdyn=133) RED CELL DISTRIBUTION WIDTH (BEAKER) (test 13.9 % 10.3-14.2 wyer=277) PLATELET COUNT (BEAKER) (test ffii=389) 78 K/CU MM 150-430 MEAN PLATELET VOLUME (BEAKER) (test nrjo=575) 6.2 fL 6.5-10.5 NUCLEATED RED BLOOD CELLS (BEAKER) (test 0 /100 WBC 0-0 dgpr=385) NEUTROPHILS RELATIVE PERCENT (BEAKER) (test 50 % toir=547) LYMPHOCYTES RELATIVE PERCENT (BEAKER) (test 25 % mqnd=806) MONOCYTES RELATIVE PERCENT (BEAKER) (test 19 % aoux=222) EOSINOPHILS RELATIVE PERCENT (BEAKER) (test 6 % zjgk=034) BASOPHILS RELATIVE PERCENT (BEAKER) (test 1 % ugio=976) NEUTROPHILS ABSOLUTE COUNT (BEAKER) (test 1.82 K/ L 1.80-8.00 buee=735) LYMPHOCYTES ABSOLUTE COUNT (BEAKER) (test 0.91 K/ L 1.48-4.50 oddr=319) MONOCYTES ABSOLUTE COUNT (BEAKER) (test sjsh=391) 0.69 K/ L 0.00-1.30 EOSINOPHILS ABSOLUTE COUNT (BEAKER) (test 0.21 K/ L 0.00-0.50 wqpb=499) BASOPHILS ABSOLUTE COUNT (BEAKER) (test vsuu=951) 0.02 K/ L 0.00-0.20 0.00HEPATIC FUNCTION [id number] 08:34:00 Test Item Value Reference Range Comments TOTAL PROTEIN (BEAKER) (test zzlj=466) 5.9 gm/dL 6.0-8.3 ALBUMIN (BEAKER) (test bdum=7508) 3.2 g/dL 3.5-5.0 BILIRUBIN TOTAL (BEAKER) (test nsno=814) 5.4 mg/dL 0.2-1.2 BILIRUBIN DIRECT (BEAKER) (test rzon=444) 2.5 mg/dL 0.1-0.5 ALKALINE PHOSPHATASE (BEAKER) (test tjre=193) 60 U/L 40-150 AST (SGOT) (BEAKER) (test xiru=142) 28 U/L 5-34 ALT (SGPT) (BEAKER) (test cqwq=686) 10 U/L 6-55 Specimen moderately [id number] 08:16:00 Test Item Value Reference Range Comments PHOSPHORUS (BEAKER) (test hsgi=388) 3.0 mg/dL 2.3-4.7 [id number] 08:16:00 Test Item Value Reference Range Comments MAGNESIUM (BEAKER) (test aaln=346) 1.6 mg/dL 1.6-2.6 BASIC METABOLIC [id number] 08:16:00 Test Item Value Reference Range Comments SODIUM (BEAKER) (test 133 meq/L 136-145 gjpc=616) POTASSIUM (BEAKER) (test 3.6 meq/L 3.5-5.1 vuet=923) CHLORIDE (BEAKER) (test 105 meq/L 98-107 jdwz=479) CO2 (BEAKER) (test 20 meq/L 22-29 yeoc=294) BLOOD UREA NITROGEN 18 mg/dL 7-21 (BEAKER) (test wkpc=262) CREATININE (BEAKER) (test 1.54 mg/dL 0.57-1.25 dsca=903) GLUCOSE RANDOM (BEAKER) 70 mg/dL 70-105 (test xxfe=046) CALCIUM (BEAKER) (test 8.2 mg/dL 8.4-10.2 hrdx=041) EGFR (BEAKER) (test 48 mL/min/1.73 sq m ESTIMATED GFR IS NOT rmwe=0456) ACCURATE CREATININE CLEARANCE IN PREDICTING GLOMERULAR FILTRATION RATE. ESTIMATED GFR IS NOT APPLICABLE FOR DIALYSIS PATIENTS. Specimen moderately ictericCBC W/PLT COUNT & AUTO [id number] 08: 06:00 Test Item Value Reference Range Comments WHITE BLOOD CELL COUNT (BEAKER) (test jdju=627) 3.4 K/ L 4.0-10.0 RED BLOOD CELL COUNT (BEAKER) (test fjqs=399) 2.03 M/ L 4.20-5.80 HEMOGLOBIN (BEAKER) (test nlry=831) 7.3 GM/DL 13.0-16.8 HEMATOCRIT (BEAKER) (test ufmq=537) 21.6 % 40.0-50.0 MEAN CORPUSCULAR VOLUME (BEAKER) (test pvcl=741) 106.0 fL 82.0-98.0 MEAN CORPUSCULAR HEMOGLOBIN (BEAKER) (test 35.8 pg 27.0-33.0 jgfd=638) MEAN CORPUSCULAR HEMOGLOBIN CONC (BEAKER) (test 33.7 GM/DL 32.0-36.0 wdec=343) RED CELL DISTRIBUTION WIDTH (BEAKER) (test 13.5 % 10.3-14.2 ppmg=994) PLATELET COUNT (BEAKER) (test opno=792) 82 K/CU MM 150-430 MEAN PLATELET VOLUME (BEAKER) (test bkds=315) 6.7 fL 6.5-10.5 NUCLEATED RED BLOOD CELLS (BEAKER) (test 0 /100 WBC 0-0 hmdb=101) NEUTROPHILS RELATIVE PERCENT (BEAKER) (test 50 % xtoi=557) LYMPHOCYTES RELATIVE PERCENT (BEAKER) (test 25 % djbs=577) MONOCYTES RELATIVE PERCENT (BEAKER) (test 19 % ovdp=140) EOSINOPHILS RELATIVE PERCENT (BEAKER) (test 5 % qhbg=945) BASOPHILS RELATIVE PERCENT (BEAKER) (test 1 % irxe=753) NEUTROPHILS ABSOLUTE COUNT (BEAKER) (test 1.69 K/ L 1.80-8.00 alyu=109) LYMPHOCYTES ABSOLUTE COUNT (BEAKER) (test 0.83 K/ L 1.48-4.50 qryx=259) MONOCYTES ABSOLUTE COUNT (BEAKER) (test jryi=202) 0.65 K/ L 0.00-1.30 EOSINOPHILS ABSOLUTE COUNT (BEAKER) (test 0.17 K/ L 0.00-0.50 zcha=135) BASOPHILS ABSOLUTE COUNT (BEAKER) (test focf=237) 0.04 K/ L 0.00-0.20 0.00PROTHROMBIN [id number] 08:01:00 Test Item Value Reference Range Comments PROTIME (BEAKER) (test opro=745) 27.6 seconds 11.7-14.7 INR (BEAKER) (test tbke=332) 2.6 <=5.9 RECOMMENDED COUMADIN/WARFARIN INR THERAPY RANGESSTANDARD DOSE: 2.0 - 3.0 Includes: PROPHYLAXIS forvenous thrombosis, systemic embolization; TREATMENT for venous thrombosis and/or pulmonary embolus.HIGH RISK: Target INR is 2.5-3.5 for patients with mechanical heart valves.CALCIUM, [id number] 07:58:00 Test Item Value Reference Range Comments CALCIUM IONIZED (BEAKER) (test yggt=498) 1.00 mmol/L 1.12-1.27 PH, BLOOD (BEAKER) (test merz=4352) 7.53 URINALYSIS W/ [id number] 18:42:00 Test Item Value Reference Range Comments COLOR (BEAKER) (test rasb=532) Yellow CLARITY (BEAKER) (test irez=474) Clear SPECIFIC GRAVITY UA (BEAKER) (test 1.009 1.001-1.035 gnxb=864) PH UA (BEAKER) (test cfft=144) 7.5 5.0-8.0 PROTEIN UA (BEAKER) (test svbx=494) Negative Negative GLUCOSE UA (BEAKER) (test upkv=159) Negative Negative KETONES UA (BEAKER) (test vfqa=169) Negative Negative BILIRUBIN UA (BEAKER) (test myah=062) Negative Negative BLOOD UA (BEAKER) (test mwpn=644) Negative Negative NITRITE UA (BEAKER) (test tehd=857) Negative Negative LEUKOCYTE ESTERASE UA (BEAKER) (test Negative Negative zcto=620) UROBILINOGEN UA (BEAKER) (test obze=169) 3.0 mg/dL 0.2-1.0 RBC UA (BEAKER) (test yivf=825) 6 /HPF WBC UA (BEAKER) (test wnpa=536) 1 /HPF SOURCE(BEAKER) (test wwhi=9634) Urine, Clean Catch PROTHROMBIN [id number] 15:13:00 Test Item Value Reference Range Comments PROTIME (BEAKER) (test vcbh=349) 31.4 seconds 11.7-14.7 INR (BEAKER) (test egje=713) 3.0 <=5.9 RECOMMENDED COUMADIN/WARFARIN INR THERAPY RANGESSTANDARD DOSE: 2.0 - 3.0 Includes: PROPHYLAXIS forvenous thrombosis, systemic embolization; TREATMENT for venous thrombosis and/or pulmonary embolus.HIGH RISK: Target INR is 2.5-3.5 for patients with mechanical heart valves.Draw after vitamin K administrationCBC W/PLT COUNT & AUTO [id number] 07:02:00 Test Item Value Reference Range Comments WHITE BLOOD CELL COUNT (BEAKER) (test cbct=031) 3.0 K/ L 4.0-10.0 RED BLOOD CELL COUNT (BEAKER) (test ineu=453) 2.21 M/ L 4.20-5.80 HEMOGLOBIN (BEAKER) (test omym=825) 7.5 GM/DL 13.0-16.8 HEMATOCRIT (BEAKER) (test xmza=455) 23.5 % 40.0-50.0 MEAN CORPUSCULAR VOLUME (BEAKER) (test flnb=038) 106.0 fL 82.0-98.0 MEAN CORPUSCULAR HEMOGLOBIN (BEAKER) (test 34.0 pg 27.0-33.0 uqol=965) MEAN CORPUSCULAR HEMOGLOBIN CONC (BEAKER) (test 32.0 GM/DL 32.0-36.0 nmxa=283) RED CELL DISTRIBUTION WIDTH (BEAKER) (test 13.0 % 10.3-14.2 ztnx=481) PLATELET COUNT (BEAKER) (test nngm=367) 81 K/CU MM 150-430 MEAN PLATELET VOLUME (BEAKER) (test uebq=221) 6.3 fL 6.5-10.5 NUCLEATED RED BLOOD CELLS (BEAKER) (test 0 /100 WBC 0-0 exbp=956) NEUTROPHILS RELATIVE PERCENT (BEAKER) (test 52 % lxom=296) LYMPHOCYTES RELATIVE PERCENT (BEAKER) (test 24 % naex=550) MONOCYTES RELATIVE PERCENT (BEAKER) (test 20 % ktvc=750) EOSINOPHILS RELATIVE PERCENT (BEAKER) (test 3 % lncl=679) BASOPHILS RELATIVE PERCENT (BEAKER) (test 1 % qvit=042) NEUTROPHILS ABSOLUTE COUNT (BEAKER) (test 1.53 K/ L 1.80-8.00 wtfs=616) LYMPHOCYTES ABSOLUTE COUNT (BEAKER) (test 0.71 K/ L 1.48-4.50 mttu=715) MONOCYTES ABSOLUTE COUNT (BEAKER) (test blic=836) 0.60 K/ L 0.00-1.30 EOSINOPHILS ABSOLUTE COUNT (BEAKER) (test 0.10 K/ L 0.00-0.50 gepg=495) BASOPHILS ABSOLUTE COUNT (BEAKER) (test vujq=682) 0.03 K/ L 0.00-0.20 0.00BASI METABOLIC [id number] 06:29:00 Test Item Value Reference Range Comments SODIUM (BEAKER) (test 135 meq/L 136-145 ljjr=257) POTASSIUM (BEAKER) (test 4.0 meq/L 3.5-5.1 povf=506) CHLORIDE (BEAKER) (test 106 meq/L 98-107 nzwv=899) CO2 (BEAKER) (test 22 meq/L 22-29 iflt=665) BLOOD UREA NITROGEN 17 mg/dL 7-21 (BEAKER) (test uoqi=135) CREATININE (BEAKER) (test 1.46 mg/dL 0.57-1.25 nufl=920) GLUCOSE RANDOM (BEAKER) 75 mg/dL 70-105 (test ywtp=484) CALCIUM (BEAKER) (test 8.0 mg/dL 8.4-10.2 uakl=210) EGFR (BEAKER) (test 51 mL/min/1.73 sq m ESTIMATED GFR IS NOT xxwp=3844) ACCURATE CREATININE CLEARANCE IN PREDICTING GLOMERULAR FILTRATION RATE. ESTIMATED GFR IS NOT APPLICABLE FOR DIALYSIS PATIENTS. Specimen moderately ictericHEPATIC FUNCTION [id number] 06:29:00 Test Item Value Reference Range Comments TOTAL PROTEIN (BEAKER) (test zbtz=102) 5.9 gm/dL 6.0-8.3 ALBUMIN (BEAKER) (test aajw=5098) 3.0 g/dL 3.5-5.0 BILIRUBIN TOTAL (BEAKER) (test zpul=309) 5.4 mg/dL 0.2-1.2 BILIRUBIN DIRECT (BEAKER) (test bmtq=109) 2.7 mg/dL 0.1-0.5 ALKALINE PHOSPHATASE (BEAKER) (test pjyq=781) 65 U/L 40-150 AST (SGOT) (BEAKER) (test cbtw=459) 27 U/L 5-34 ALT (SGPT) (BEAKER) (test sqpl=976) 7 U/L 6-55 Specimen moderately ictericPROTHROMBIN [id number] 06:23:00 Test Item Value Reference Range Comments PROTIME (BEAKER) (test yptc=230) 31.2 seconds 11.7-14.7 INR (BEAKER) (test lfxl=649) 3.0 <=5.9 RECOMMENDED COUMADIN/WARFARIN INR THERAPY RANGESSTANDARD DOSE: 2.0 - 3.0 Includes: PROPHYLAXIS forvenous thrombosis, systemic embolization; TREATMENT for venous thrombosis and/or pulmonary embolus.HIGH RISK: Target INR is 2.5-3.5 for patients with mechanical heart valves.CBC W/PLT COUNT & AUTO [id number] 06:26:00 Test Item Value Reference Range Comments WHITE BLOOD CELL COUNT (BEAKER) (test gboq=301) 3.0 K/ L 4.0-10.0 RED BLOOD CELL COUNT (BEAKER) (test sewh=788) 2.16 M/ L 4.20-5.80 HEMOGLOBIN (BEAKER) (test gsbs=522) 7.4 GM/DL 13.0-16.8 HEMATOCRIT (BEAKER) (test func=022) 23.1 % 40.0-50.0 MEAN CORPUSCULAR VOLUME (BEAKER) (test wfmg=649) 107.0 fL 82.0-98.0 MEAN CORPUSCULAR HEMOGLOBIN (BEAKER) (test 34.4 pg 27.0-33.0 ebyh=401) MEAN CORPUSCULAR HEMOGLOBIN CONC (BEAKER) (test 32.1 GM/DL 32.0-36.0 ceoj=834) RED CELL DISTRIBUTION WIDTH (BEAKER) (test 13.1 % 10.3-14.2 goir=072) PLATELET COUNT (BEAKER) (test comb=069) 72 K/CU MM 150-430 MEAN PLATELET VOLUME (BEAKER) (test bhwu=257) 6.1 fL 6.5-10.5 NUCLEATED RED BLOOD CELLS (BEAKER) (test 0 /100 WBC 0-0 raza=465) NEUTROPHILS RELATIVE PERCENT (BEAKER) (test 58 % kvaz=291) LYMPHOCYTES RELATIVE PERCENT (BEAKER) (test 21 % batg=948) MONOCYTES RELATIVE PERCENT (BEAKER) (test 15 % imgw=497) EOSINOPHILS RELATIVE PERCENT (BEAKER) (test 4 % ywhx=157) BASOPHILS RELATIVE PERCENT (BEAKER) (test 1 % dxya=502) NEUTROPHILS ABSOLUTE COUNT (BEAKER) (test 1.73 K/ L 1.80-8.00 sgzi=832) LYMPHOCYTES ABSOLUTE COUNT (BEAKER) (test 0.64 K/ L 1.48-4.50 qzxg=388) MONOCYTES ABSOLUTE COUNT (BEAKER) (test afrm=625) 0.45 K/ L 0.00-1.30 EOSINOPHILS ABSOLUTE COUNT (BEAKER) (test 0.13 K/ L 0.00-0.50 cpab=428) BASOPHILS ABSOLUTE COUNT (BEAKER) (test oggw=010) 0.02 K/ L 0.00-0.20 0.00BASIC METABOLIC [id number] 06:24:00 Test Item Value Reference Range Comments SODIUM (BEAKER) (test 134 meq/L 136-145 mkoi=627) POTASSIUM (BEAKER) (test 3.7 meq/L 3.5-5.1 apjk=256) CHLORIDE (BEAKER) (test 105 meq/L 98-107 xngx=950) CO2 (BEAKER) (test 21 meq/L 22-29 oyoh=165) BLOOD UREA NITROGEN 18 mg/dL 7-21 (BEAKER) (test vptx=181) CREATININE (BEAKER) (test 1.53 mg/dL 0.57-1.25 ruxm=137) GLUCOSE RANDOM (BEAKER) 103 mg/dL 70-105 (test kxir=796) CALCIUM (BEAKER) (test 7.6 mg/dL 8.4-10.2 mwnl=718) EGFR (BEAKER) (test 48 mL/min/1.73 sq m ESTIMATED GFR IS NOT baui=1669) ACCURATE CREATININE CLEARANCE IN PREDICTING GLOMERULAR FILTRATION RATE. ESTIMATED GFR IS NOT APPLICABLE FOR DIALYSIS PATIENTS. Specimen moderately ictericHEPATIC FUNCTION [id number] 06:19:00 Test Item Value Reference Range Comments TOTAL PROTEIN (BEAKER) (test qwkq=368) 5.6 gm/dL 6.0-8.3 ALBUMIN (BEAKER) (test oxsi=5172) 2.4 g/dL 3.5-5.0 BILIRUBIN TOTAL (BEAKER) (test ojju=703) 4.8 mg/dL 0.2-1.2 BILIRUBIN DIRECT (BEAKER) (test xete=737) 2.6 mg/dL 0.1-0.5 ALKALINE PHOSPHATASE (BEAKER) (test kndd=458) 70 U/L 40-150 AST (SGOT) (BEAKER) (test gssp=575) 28 U/L 5-34 ALT (SGPT) (BEAKER) (test vsea=960) 11 U/L 6-55 Specimen moderately ictericPROTHROMBIN [id number] 06:00:00 Test Item Value Reference Range Comments PROTIME (BEAKER) (test lmyq=380) 36.7 seconds 11.7-14.7 INR (BEAKER) (test hzel=630) 3.7 <=5.9 RECOMMENDED COUMADIN/WARFARIN INR THERAPY RANGESSTANDARD DOSE: 2.0 - 3.0 Includes: PROPHYLAXIS forvenous thrombosis, systemic embolization; TREATMENT for venous thrombosis and/or pulmonary embolus.HIGH RISK: Target INR is 2.5-3.5 for patients with mechanical heart valves.BODY FLUID CULTURE + GRAM [id number] 00:51:00 Test Item Value Reference Range Comments CULTURE (BEAKER) (test ggkr=7047) No growth GRAM STAIN RESULT (BEAKER) (test 3+ WBCs ddts=2214) GRAM STAIN RESULT (BEAKER) (test No organisms seen clfi=13831) BLOOD [id number] 17:08:00 Test Item Value Reference Range Comments CULTURE (BEAKER) (test nbye=0512) No growth in 5 days BLOOD [id number] 17:06:00 Test Item Value Reference Range Comments CULTURE (BEAKER) (test zdda=2318) No growth in 5 days CBC W/PLT COUNT & AUTO [id number] 07:05:00 Test Item Value Reference Range Comments WHITE BLOOD CELL COUNT (BEAKER) (test btmz=053) 3.5 K/ L 4.0-10.0 RED BLOOD CELL COUNT (BEAKER) (test xetg=955) 2.16 M/ L 4.20-5.80 HEMOGLOBIN (BEAKER) (test smwq=908) 7.8 GM/DL 13.0-16.8 HEMATOCRIT (BEAKER) (test gzjr=056) 23.9 % 40.0-50.0 MEAN CORPUSCULAR VOLUME (BEAKER) (test bmyt=611) 111.0 fL 82.0-98.0 MEAN CORPUSCULAR HEMOGLOBIN (BEAKER) (test 36.3 pg 27.0-33.0 vvig=858) MEAN CORPUSCULAR HEMOGLOBIN CONC (BEAKER) (test 32.8 GM/DL 32.0-36.0 bbnp=236) RED CELL DISTRIBUTION WIDTH (BEAKER) (test 13.9 % 10.3-14.2 igwf=622) PLATELET COUNT (BEAKER) (test nhpm=812) 72 K/CU MM 150-430 MEAN PLATELET VOLUME (BEAKER) (test rmfc=220) 6.4 fL 6.5-10.5 NUCLEATED RED BLOOD CELLS (BEAKER) (test 0 /100 WBC 0-0 snnq=300) NEUTROPHILS RELATIVE PERCENT (BEAKER) (test 51 % yxof=444) LYMPHOCYTES RELATIVE PERCENT (BEAKER) (test 25 % lrjp=068) MONOCYTES RELATIVE PERCENT (BEAKER) (test 18 % jbza=976) EOSINOPHILS RELATIVE PERCENT (BEAKER) (test 6 % xdlv=092) BASOPHILS RELATIVE PERCENT (BEAKER) (test 0 % nghr=078) NEUTROPHILS ABSOLUTE COUNT (BEAKER) (test 1.77 K/ L 1.80-8.00 cbcc=453) LYMPHOCYTES ABSOLUTE COUNT (BEAKER) (test 0.87 K/ L 1.48-4.50 wrsv=024) MONOCYTES ABSOLUTE COUNT (BEAKER) (test xdxj=386) 0.62 K/ L 0.00-1.30 EOSINOPHILS ABSOLUTE COUNT (BEAKER) (test 0.22 K/ L 0.00-0.50 mqvo=213) BASOPHILS ABSOLUTE COUNT (BEAKER) (test siwp=595) 0.01 K/ L 0.00-0.20 0.00BASIC METABOLIC [id number] 06:54:00 Test Item Value Reference Range Comments SODIUM (BEAKER) (test 137 meq/L 136-145 gchv=801) POTASSIUM (BEAKER) (test 3.8 meq/L 3.5-5.1 lmtn=808) CHLORIDE (BEAKER) (test 109 meq/L 98-107 qvty=215) CO2 (BEAKER) (test 21 meq/L 22-29 qrqr=466) BLOOD UREA NITROGEN 17 mg/dL 7-21 (BEAKER) (test kteh=544) CREATININE (BEAKER) (test 1.60 mg/dL 0.57-1.25 dsoy=304) GLUCOSE RANDOM (BEAKER) 76 mg/dL 70-105 (test wsmj=038) CALCIUM (BEAKER) (test 7.5 mg/dL 8.4-10.2 fhwx=599) EGFR (BEAKER) (test 46 mL/min/1.73 sq m ESTIMATED GFR IS NOT ggrj=6640) ACCURATE CREATININE CLEARANCE IN PREDICTING GLOMERULAR FILTRATION RATE. ESTIMATED GFR IS NOT APPLICABLE FOR DIALYSIS PATIENTS. Specimen moderately ictericHEPATIC FUNCTION [id number] 06:53:00 Test Item Value Reference Range Comments TOTAL PROTEIN (BEAKER) (test huhr=390) 5.6 gm/dL 6.0-8.3 ALBUMIN (BEAKER) (test bdxx=5711) 2.4 g/dL 3.5-5.0 BILIRUBIN TOTAL (BEAKER) (test yixm=971) 4.5 mg/dL 0.2-1.2 BILIRUBIN DIRECT (BEAKER) (test mwdw=148) 2.7 mg/dL 0.1-0.5 ALKALINE PHOSPHATASE (BEAKER) (test lvkk=020) 74 U/L 40-150 AST (SGOT) (BEAKER) (test sguk=051) 36 U/L 5-34 ALT (SGPT) (BEAKER) (test sbkl=184) 13 U/L 6-55 Specimen moderately ictericB-TYPE NATRIURETIC FACTOR (BNP)[id number] 06:52:00 Test Item Value Reference Range Comments B-TYPE NATRIURETIC PEPTIDE (BEAKER) (test 446 pg/mL 0-100 gasf=824) PROTHROMBIN [id number] 06:36:00 Test Item Value Reference Range Comments PROTIME (BEAKER) (test jaik=401) 28.7 seconds 11.7-14.7 INR (BEAKER) (test gotf=446) 2.7 <=5.9 RECOMMENDED COUMADIN/WARFARIN INR THERAPY RANGESSTANDARD DOSE: 2.0 - 3.0 Includes: PROPHYLAXIS forvenous thrombosis, systemic embolization; TREATMENT for venous thrombosis and/or pulmonary embolus.HIGH RISK: Target INR is 2.5-3.5 for patients with mechanical heart valves.EOSINOPHIL SMEAR, [id number] 21: 44:00 Test Item Value Reference Range Comments EOSINOPHIL SMEAR, URINE (BEAKER) (test No EOS seen No EOS seen rjst=5221) CREATININE, RANDOM [id number] 18:02:00 Test Item Value Reference Range Comments CREATININE URINE (BEAKER) (test ynnu=410) 96.3 mg/dL Reference Range: No NormalsSODIUM, RANDOM [id number] 18:02:00 Test Item Value Reference Range Comments SODIUM URINE (BEAKER) (test bnlf=061) 58 meq/L Reference Range: No NormalsURINALYSIS W/ [id number] 17:33:00 Test Item Value Reference Range Comments COLOR (BEAKER) (test rpwp=457) Yellow CLARITY (BEAKER) (test mass=834) Clear SPECIFIC GRAVITY UA (BEAKER) (test pqsm=645) 1.009 1.001-1.035 PH UA (BEAKER) (test hoei=679) 6.0 5.0-8.0 PROTEIN UA (BEAKER) (test qppg=870) Negative Negative GLUCOSE UA (BEAKER) (test vamr=669) Negative Negative KETONES UA (BEAKER) (test jbmo=418) Negative Negative BILIRUBIN UA (BEAKER) (test gznu=348) Negative Negative BLOOD UA (BEAKER) (test pnmk=616) Negative Negative NITRITE UA (BEAKER) (test pxcz=499) Negative Negative LEUKOCYTE ESTERASE UA (BEAKER) (test kyje=073) Negative Negative UROBILINOGEN UA (BEAKER) (test tnij=812) 4.0 mg/dL 0.2-1.0 RBC UA (BEAKER) (test mjld=358) < /HPF WBC UA (BEAKER) (test ogod=980) 2 /HPF BACTERIA (BEAKER) (test emlb=592) Rare SOURCE(BEAKER) (test gred=0790) CBC W/PLT COUNT & AUTO [id number] 06:53:00 Test Item Value Reference Range Comments WHITE BLOOD CELL COUNT (BEAKER) (test dhtm=382) 3.5 K/ L 4.0-10.0 RED BLOOD CELL COUNT (BEAKER) (test vtak=395) 2.17 M/ L 4.20-5.80 HEMOGLOBIN (BEAKER) (test gncz=753) 7.9 GM/DL 13.0-16.8 HEMATOCRIT (BEAKER) (test imot=896) 23.9 % 40.0-50.0 MEAN CORPUSCULAR VOLUME (BEAKER) (test mmzd=177) 110.0 fL 82.0-98.0 MEAN CORPUSCULAR HEMOGLOBIN (BEAKER) (test 36.1 pg 27.0-33.0 dgiz=930) MEAN CORPUSCULAR HEMOGLOBIN CONC (BEAKER) (test 32.9 GM/DL 32.0-36.0 fbjg=814) RED CELL DISTRIBUTION WIDTH (BEAKER) (test 14.0 % 10.3-14.2 vaxl=077) PLATELET COUNT (BEAKER) (test ylkl=121) 77 K/CU MM 150-430 MEAN PLATELET VOLUME (BEAKER) (test mcme=243) 6.1 fL 6.5-10.5 NUCLEATED RED BLOOD CELLS (BEAKER) (test 0 /100 WBC 0-0 bhyy=817) NEUTROPHILS RELATIVE PERCENT (BEAKER) (test 56 % qegz=827) LYMPHOCYTES RELATIVE PERCENT (BEAKER) (test 20 % eonw=840) MONOCYTES RELATIVE PERCENT (BEAKER) (test 18 % jklq=340) EOSINOPHILS RELATIVE PERCENT (BEAKER) (test 6 % ulew=853) BASOPHILS RELATIVE PERCENT (BEAKER) (test 1 % uzpk=888) NEUTROPHILS ABSOLUTE COUNT (BEAKER) (test 1.95 K/ L 1.80-8.00 codt=557) LYMPHOCYTES ABSOLUTE COUNT (BEAKER) (test 0.69 K/ L 1.48-4.50 kimp=430) MONOCYTES ABSOLUTE COUNT (BEAKER) (test dfqh=787) 0.62 K/ L 0.00-1.30 EOSINOPHILS ABSOLUTE COUNT (BEAKER) (test 0.20 K/ L 0.00-0.50 rsfp=395) BASOPHILS ABSOLUTE COUNT (BEAKER) (test jbgy=945) 0.03 K/ L 0.00-0.20 0.00BASIC METABOLIC [id number] 06:45:00 Test Item Value Reference Range Comments SODIUM (BEAKER) (test 134 meq/L 136-145 brhc=533) POTASSIUM (BEAKER) (test 3.6 meq/L 3.5-5.1 konf=498) CHLORIDE (BEAKER) (test 106 meq/L 98-107 gdgs=550) CO2 (BEAKER) (test 21 meq/L 22-29 pjlg=117) BLOOD UREA NITROGEN 14 mg/dL 7-21 (BEAKER) (test aeyh=396) CREATININE (BEAKER) (test 1.33 mg/dL 0.57-1.25 wflw=927) GLUCOSE RANDOM (BEAKER) 71 mg/dL 70-105 (test kjhx=126) CALCIUM (BEAKER) (test 7.6 mg/dL 8.4-10.2 iabz=381) EGFR (BEAKER) (test 57 mL/min/1.73 sq m ESTIMATED GFR IS NOT yqfj=7553) ACCURATE CREATININE CLEARANCE IN PREDICTING GLOMERULAR FILTRATION RATE. ESTIMATED GFR IS NOT APPLICABLE FOR DIALYSIS PATIENTS. Specimen moderately ictericHEPATIC FUNCTION [id number] 06:40:00 Test Item Value Reference Range Comments TOTAL PROTEIN (BEAKER) (test mviz=902) 5.6 gm/dL 6.0-8.3 ALBUMIN (BEAKER) (test nmkn=8993) 2.1 g/dL 3.5-5.0 BILIRUBIN TOTAL (BEAKER) (test bbnj=311) 4.4 mg/dL 0.2-1.2 BILIRUBIN DIRECT (BEAKER) (test dzml=470) 2.9 mg/dL 0.1-0.5 ALKALINE PHOSPHATASE (BEAKER) (test hujm=901) 86 U/L 40-150 AST (SGOT) (BEAKER) (test gslh=252) 45 U/L 5-34 ALT (SGPT) (BEAKER) (test cafc=569) 13 U/L 6-55 Specimen moderately ictericPROTHROMBIN [id number] 06:05:00 Test Item Value Reference Range Comments PROTIME (BEAKER) (test tbwn=256) 29.4 seconds 11.7-14.7 INR (BEAKER) (test ncwc=429) 2.8 <=5.9 RECOMMENDED COUMADIN/WARFARIN INR THERAPY RANGESSTANDARD DOSE: 2.0 - 3.0 Includes: PROPHYLAXIS forvenous thrombosis, systemic embolization; TREATMENT for venous thrombosis and/or pulmonary embolus.HIGH RISK: Target INR is 2.5-3.5 for patients with mechanical heart valves.BODY FLUID CELL COUNT WITH [id number] 20:51:00 Test Item Value Reference Range Comments APPEARANCE FLUID (BEAKER) (test kkzw=139) Slightly Hazy Clear COLOR FLUID (BEAKER) (test kqdf=473) Yellow Colorless, Straw RBC FLUID (BEAKER) (test hfuv=688) 545 /cu mm <=1 ADJUSTED WBC FLUID (BEAKER) (test jqba=7416) 104 /cu mm <=5 LINING CELLS (BEAKER) (test gwec=1567) 1 /cu mm <=1 NEUTROPHILS FLUID (BEAKER) (test idtx=9684) 3 % LYMPHS FLUID (BEAKER) (test qsre=887) 13 % MONO/MACROPHAGE FLUID (BEAKER) (test 84 % ysrw=302) EOSINOPHILS FLUID (BEAKER) (test uxzu=519) 0 % BASO FLUID (BEAKER) (test ilmx=593) 0 % CONTAINER BODY FLUID (BEAKER) (test EDTA Tube vehd=1448) POCT-GLUCOSE [id number] 18:48:00 Test Item Value Reference Range Comments POC-GLUCOSE METER (BEAKER) 105 mg/dL 70-110 TESTED AT [address] (test bcqy=9369) [facility] [address] BASIC METABOLIC [id number] 05:45:00 Test Item Value Reference Range Comments SODIUM (BEAKER) (test 133 meq/L 136-145 afvi=084) POTASSIUM (BEAKER) (test 4.3 meq/L 3.5-5.1 Specimen moderately wzzg=295) hemolyzed CHLORIDE (BEAKER) (test 107 meq/L 98-107 qopx=516) CO2 (BEAKER) (test 19 meq/L 22-29 wohe=828) BLOOD UREA NITROGEN 10 mg/dL 7-21 (BEAKER) (test iluc=152) CREATININE (BEAKER) (test 0.86 mg/dL 0.57-1.25 Specimen moderately mrvd=841) hemolyzed GLUCOSE RANDOM (BEAKER) 68 mg/dL 70-105 (test jfjl=343) CALCIUM (BEAKER) (test 7.5 mg/dL 8.4-10.2 pvyf=712) EGFR (BEAKER) (test 94 mL/min/1.73 sq m ESTIMATED GFR IS NOT uzdy=8406) ACCURATE CREATININE CLEARANCE IN PREDICTING GLOMERULAR FILTRATION RATE. ESTIMATED GFR IS NOT APPLICABLE FOR DIALYSIS PATIENTS. Specimen slightly ictericHEPATIC FUNCTION [id number] 05:45:00 Test Item Value Reference Range Comments TOTAL PROTEIN (BEAKER) (test 5.9 gm/dL 6.0-8.3 Specimen moderately hemolyzed siwe=531) ALBUMIN (BEAKER) (test 1.9 g/dL 3.5-5.0 Specimen moderately hemolyzed gyxs=1060) BILIRUBIN TOTAL (BEAKER) (test 4.4 mg/dL 0.2-1.2 Specimen moderately hemolyzed upye=340) BILIRUBIN DIRECT (BEAKER) 2.6 mg/dL 0.1-0.5 Specimen moderately hemolyzed (test nbvl=556) ALKALINE PHOSPHATASE (BEAKER) 86 U/L 40-150 (test uhee=138) AST (SGOT) (BEAKER) (test 74 U/L 5-34 Specimen moderately hemolyzed zeyn=894) ALT (SGPT) (BEAKER) (test 17 U/L 6-55 Specimen moderately jism=183) hemolyzed Specimen slightly ictericCBC W/PLT COUNT & AUTO [id number] 05:21 :00 Test Item Value Reference Range Comments WHITE BLOOD CELL COUNT (BEAKER) (test xzet=895) 3.5 K/ L 4.0-10.0 RED BLOOD CELL COUNT (BEAKER) (test tvwu=067) 2.06 M/ L 4.20-5.80 HEMOGLOBIN (BEAKER) (test etia=633) 7.9 GM/DL 13.0-16.8 HEMATOCRIT (BEAKER) (test yvmv=223) 22.8 % 40.0-50.0 MEAN CORPUSCULAR VOLUME (BEAKER) (test odwf=643) 110.0 fL 82.0-98.0 MEAN CORPUSCULAR HEMOGLOBIN (BEAKER) (test 38.2 pg 27.0-33.0 suln=115) MEAN CORPUSCULAR HEMOGLOBIN CONC (BEAKER) (test 34.6 GM/DL 32.0-36.0 hmcd=994) RED CELL DISTRIBUTION WIDTH (BEAKER) (test 13.5 % 10.3-14.2 tdfc=768) PLATELET COUNT (BEAKER) (test mmaf=385) 61 K/CU MM 150-430 MEAN PLATELET VOLUME (BEAKER) (test rlxa=554) 6.8 fL 6.5-10.5 NUCLEATED RED BLOOD CELLS (BEAKER) (test 0 /100 WBC 0-0 tomy=770) NEUTROPHILS RELATIVE PERCENT (BEAKER) (test 51 % jjva=159) LYMPHOCYTES RELATIVE PERCENT (BEAKER) (test 24 % dnsl=833) MONOCYTES RELATIVE PERCENT (BEAKER) (test 18 % lsrg=356) EOSINOPHILS RELATIVE PERCENT (BEAKER) (test 7 % atix=267) BASOPHILS RELATIVE PERCENT (BEAKER) (test 1 % neox=268) NEUTROPHILS ABSOLUTE COUNT (BEAKER) (test 1.76 K/ L 1.80-8.00 yudc=200) LYMPHOCYTES ABSOLUTE COUNT (BEAKER) (test 0.85 K/ L 1.48-4.50 hsve=106) MONOCYTES ABSOLUTE COUNT (BEAKER) (test qzgj=689) 0.61 K/ L 0.00-1.30 EOSINOPHILS ABSOLUTE COUNT (BEAKER) (test 0.23 K/ L 0.00-0.50 bxux=751) BASOPHILS ABSOLUTE COUNT (BEAKER) (test ufqz=793) 0.02 K/ L 0.00-0.20 0.00PROTHROMBIN [id number] 05:19:00 Test Item Value Reference Range Comments PROTIME (BEAKER) (test gyoj=249) 28.2 seconds 11.7-14.7 INR (BEAKER) (test ygtx=320) 2.6 <=5.9 RECOMMENDED COUMADIN/WARFARIN INR THERAPY RANGESSTANDARD DOSE: 2.0 - 3.0 Includes: PROPHYLAXIS forvenous thrombosis, systemic embolization; TREATMENT for venous thrombosis and/or pulmonary embolus.HIGH RISK: Target INR is 2.5-3.5 for patients with mechanical heart valves.BODY FLUID CULTURE + GRAM [id number] 14:14:00 Test Item Value Reference Range Comments CULTURE (BEAKER) (test ricv=6692) No growth GRAM STAIN RESULT (BEAKER) (test 2+ WBCs rmmu=9081) GRAM STAIN RESULT (BEAKER) (test No organisms seen tzgy=16164) CBC W/PLT COUNT & AUTO [id number] 10:28:00 Test Item Value Reference Range Comments WHITE BLOOD CELL COUNT (BEAKER) (test ozgd=019) 3.6 K/ L 4.0-10.0 RED BLOOD CELL COUNT (BEAKER) (test xbxc=862) 2.17 M/ L 4.20-5.80 HEMOGLOBIN (BEAKER) (test xfev=492) 7.7 GM/DL 13.0-16.8 HEMATOCRIT (BEAKER) (test helu=701) 23.8 % 40.0-50.0 MEAN CORPUSCULAR VOLUME (BEAKER) (test ypeb=662) 110.0 fL 82.0-98.0 MEAN CORPUSCULAR HEMOGLOBIN (BEAKER) (test 35.3 pg 27.0-33.0 dibs=287) MEAN CORPUSCULAR HEMOGLOBIN CONC (BEAKER) (test 32.1 GM/DL 32.0-36.0 mflk=097) RED CELL DISTRIBUTION WIDTH (BEAKER) (test 13.7 % 10.3-14.2 pztp=129) PLATELET COUNT (BEAKER) (test wtzj=170) 62 K/CU MM 150-430 MEAN PLATELET VOLUME (BEAKER) (test mlmd=304) 6.5 fL 6.5-10.5 NUCLEATED RED BLOOD CELLS (BEAKER) (test 0 /100 WBC 0-0 rtys=847) NEUTROPHILS RELATIVE PERCENT (BEAKER) (test 58 % patr=045) LYMPHOCYTES RELATIVE PERCENT (BEAKER) (test 18 % rbze=550) MONOCYTES RELATIVE PERCENT (BEAKER) (test 17 % vlwp=446) EOSINOPHILS RELATIVE PERCENT (BEAKER) (test 8 % tooo=491) BASOPHILS RELATIVE PERCENT (BEAKER) (test 0 % ruyz=835) NEUTROPHILS ABSOLUTE COUNT (BEAKER) (test 2.10 K/ L 1.80-8.00 igks=730) LYMPHOCYTES ABSOLUTE COUNT (BEAKER) (test 0.63 K/ L 1.48-4.50 rgfx=588) MONOCYTES ABSOLUTE COUNT (BEAKER) (test cpwg=420) 0.59 K/ L 0.00-1.30 EOSINOPHILS ABSOLUTE COUNT (BEAKER) (test 0.28 K/ L 0.00-0.50 myso=847) BASOPHILS ABSOLUTE COUNT (BEAKER) (test rlzt=535) 0.00 K/ L 0.00-0.20 [id number] 10:16:00 Test Item Value Reference Range Comments PROCALCITONIN (BEAKER) (test ktin=8150) < ng/mL <0.05 SEPSIS RISK (ng/mL)Low: 0.05-0.50Intermediate: 0.51-2.00High: & gt;=2.01HEPATIC FUNCTION [id number] 06:26:00 Test Item Value Reference Range Comments TOTAL PROTEIN (BEAKER) (test wsnc=692) 5.6 gm/dL 6.0-8.3 ALBUMIN (BEAKER) (test guhq=8456) 1.9 g/dL 3.5-5.0 BILIRUBIN TOTAL (BEAKER) (test bron=121) 4.7 mg/dL 0.2-1.2 BILIRUBIN DIRECT (BEAKER) (test sdnm=108) 2.9 mg/dL 0.1-0.5 ALKALINE PHOSPHATASE (BEAKER) (test sxli=778) 85 U/L 40-150 AST (SGOT) (BEAKER) (test dmqp=124) 53 U/L 5-34 ALT (SGPT) (BEAKER) (test awjm=207) 14 U/L 6-55 Specimen moderately ictericBASIC METABOLIC [id number] 06:26:00 Test Item Value Reference Range Comments SODIUM (BEAKER) (test 134 meq/L 136-145 ebvx=163) POTASSIUM (BEAKER) (test 3.8 meq/L 3.5-5.1 lcve=826) CHLORIDE (BEAKER) (test 107 meq/L 98-107 wmub=108) CO2 (BEAKER) (test 19 meq/L 22-29 wbyz=264) BLOOD UREA NITROGEN 8 mg/dL 7-21 (BEAKER) (test eduk=323) CREATININE (BEAKER) (test 0.73 mg/dL 0.57-1.25 xkmj=046) GLUCOSE RANDOM (BEAKER) 73 mg/dL 70-105 (test xeya=717) CALCIUM (BEAKER) (test 7.2 mg/dL 8.4-10.2 ygao=677) EGFR (BEAKER) (test 113 mL/min/1.73 sq m ESTIMATED GFR IS NOT wlkk=0651) ACCURATE CREATININE CLEARANCE IN PREDICTING GLOMERULAR FILTRATION RATE. ESTIMATED GFR IS NOT APPLICABLE FOR DIALYSIS PATIENTS. Specimen moderately ictericPROTHROMBIN [id number] 06:05:00 Test Item Value Reference Range Comments PROTIME (BEAKER) (test pnco=106) 30.9 seconds 11.7-14.7 INR (BEAKER) (test mlds=453) 3.0 <=5.9 RECOMMENDED COUMADIN/WARFARIN INR THERAPY RANGESSTANDARD DOSE: 2.0 - 3.0 Includes: PROPHYLAXIS forvenous thrombosis, systemic embolization; TREATMENT for venous thrombosis and/or pulmonary embolus.HIGH RISK: Target INR is 2.5-3.5 for patients with mechanical heart valves.[id number] 05:54:00 Test Item Value Reference Range Comments PREALBUMIN (BEAKER) (test kutf=525) < mg/dL 14-45 URINE [id number] 12:11:00 Test Item Value Reference Range Comments CULTURE (BEAKER) (test zvjw=0720) No growth VANCOMYCIN LEVEL, [id number] 09:26:00 Test Item Value Reference Range Comments VANCOMYCIN TROUGH (BEAKER) (test ikxu=948) 15.3 ug/mL 10.0-20.0 HEPATIC FUNCTION [id number] 06:17:00 Test Item Value Reference Range Comments TOTAL PROTEIN (BEAKER) (test gkgu=013) 5.6 gm/dL 6.0-8.3 ALBUMIN (BEAKER) (test dpmc=5566) 2.0 g/dL 3.5-5.0 BILIRUBIN TOTAL (BEAKER) (test xkxw=298) 4.2 mg/dL 0.2-1.2 BILIRUBIN DIRECT (BEAKER) (test wpcf=474) 2.7 mg/dL 0.1-0.5 ALKALINE PHOSPHATASE (BEAKER) (test dcbs=322) 98 U/L 40-150 AST (SGOT) (BEAKER) (test xuux=564) 45 U/L 5-34 ALT (SGPT) (BEAKER) (test kpoy=103) 12 U/L 6-55 Specimen slightly ictericBASIC METABOLIC [id number] 06:17:00 Test Item Value Reference Range Comments SODIUM (BEAKER) (test 133 meq/L 136-145 qdiu=309) POTASSIUM (BEAKER) (test 3.4 meq/L 3.5-5.1 dpkr=934) CHLORIDE (BEAKER) (test 107 meq/L 98-107 kius=899) CO2 (BEAKER) (test 22 meq/L 22-29 ftll=932) BLOOD UREA NITROGEN 7 mg/dL 7-21 (BEAKER) (test idiw=671) CREATININE (BEAKER) (test 0.73 mg/dL 0.57-1.25 vrnb=795) GLUCOSE RANDOM (BEAKER) 87 mg/dL 70-105 (test taed=260) CALCIUM (BEAKER) (test 7.2 mg/dL 8.4-10.2 nmag=621) EGFR (BEAKER) (test 113 mL/min/1.73 sq m ESTIMATED GFR IS NOT rcnk=2619) ACCURATE CREATININE CLEARANCE IN PREDICTING GLOMERULAR FILTRATION RATE. ESTIMATED GFR IS NOT APPLICABLE FOR DIALYSIS PATIENTS. Specimen slightly ictericPROTHROMBIN [id number] 06:04:00 Test Item Value Reference Range Comments PROTIME (BEAKER) (test yaaj=738) 31.7 seconds 11.7-14.7 INR (BEAKER) (test xrgl=930) 3.0 <=5.9 RECOMMENDED COUMADIN/WARFARIN INR THERAPY RANGESSTANDARD DOSE: 2.0 - 3.0 Includes: PROPHYLAXIS forvenous thrombosis, systemic embolization; TREATMENT for venous thrombosis and/or pulmonary embolus.HIGH RISK: Target INR is 2.5-3.5 for patients with mechanical heart valves.VITAMIN B12 AND [id number] 19:36 :00 Test Item Value Reference Range Comments VITAMIN B12 (BEAKER) (test aldv=251) 1121 pg/mL 213-816 FOLATE (BEAKER) (test cexk=376) 18.3 ng/mL >=7.0 Effective 09/13/2014: Folate Reference Range ChangeNew: >=7.0 Previous: & gt;=5.4VITAMIN B12 AND [id number] 14:57:00 Test Item Value Reference Range Comments VITAMIN B12 (BEAKER) (test buxk=580) 1325 pg/mL 213-816 FOLATE (BEAKER) (test gqhb=977) 8.3 ng/mL >=7.0 Effective 09/13/2014: Folate Reference Range ChangeNew: >=7.0 Previous: & gt;=5.4ANTI-NUCLEAR ANTIBODY (CHERYL)2017-02-03 13:56:00 Test Item Value Reference Range Comments ANTI-NUCLEAR ANTIBODY (CHERYL) (BEAKER) (test Negative Negative izcj=222) HEPATITIS B CORE ANTIBODY, [id number] 12:27:00 Test Item Value Reference Range Comments HEPATITIS B CORE TOTAL ANTIBODY (BEAKER) (test Nonreactive Nonreactive jnns=742) CRYPTOCOCCAL [id number] 11:25:00 Test Item Value Reference Range Comments CRYPTOCOCCAL ANTIGEN, SERUM (BEAKER) (test Negative Negative, Interference ezyi=6391) HEPATITIS B SURFACE [id number] 11:15:00 Test Item Value Reference Range Comments HEPATITIS B SURFACE ANTIBODY (BEAKER) (test < mIU/mL <8.0 vide=931) HEPATITIS B SURFACE [id number] 09:53:00 Test Item Value Reference Range Comments HEPATITIS B SURFACE ANTIGEN (2) (BEAKER) (test Nonreactive Nonreactive fayl=3354) HIV-1 ANTIGEN WITH HIV-1/2 [id number] 09:53:00 Test Item Value Reference Range Comments HIV-1 ANTIGEN WITH HIV 1\T\2 ANTIBODY (2) Nonreactive Nonreactive (BEAKER) (test pzfd=3599) HEPATIC FUNCTION [id number] 07:01:00 Test Item Value Reference Range Comments TOTAL PROTEIN (BEAKER) (test izgo=218) 5.5 gm/dL 6.0-8.3 ALBUMIN (BEAKER) (test orrt=2281) 2.0 g/dL 3.5-5.0 BILIRUBIN TOTAL (BEAKER) (test avfo=705) 3.8 mg/dL 0.2-1.2 BILIRUBIN DIRECT (BEAKER) (test djch=418) 2.5 mg/dL 0.1-0.5 ALKALINE PHOSPHATASE (BEAKER) (test hknx=809) 108 U/L 40-150 AST (SGOT) (BEAKER) (test qnjz=143) 40 U/L 5-34 ALT (SGPT) (BEAKER) (test zhzi=620) 10 U/L 6-55 Specimen slightly ictericBASIC METABOLIC [id number] 07:01:00 Test Item Value Reference Range Comments SODIUM (BEAKER) (test 133 meq/L 136-145 fxkr=174) POTASSIUM (BEAKER) (test 3.7 meq/L 3.5-5.1 xest=231) CHLORIDE (BEAKER) (test 108 meq/L 98-107 qmzn=204) CO2 (BEAKER) (test 20 meq/L 22-29 foog=879) BLOOD UREA NITROGEN 7 mg/dL 7-21 (BEAKER) (test gqgy=345) CREATININE (BEAKER) (test 0.76 mg/dL 0.57-1.25 wqqj=578) GLUCOSE RANDOM (BEAKER) 100 mg/dL 70-105 (test joit=797) CALCIUM (BEAKER) (test 7.3 mg/dL 8.4-10.2 viem=186) EGFR (BEAKER) (test 108 mL/min/1.73 sq m ESTIMATED GFR IS NOT xyfe=9590) ACCURATE CREATININE CLEARANCE IN PREDICTING GLOMERULAR FILTRATION RATE. ESTIMATED GFR IS NOT APPLICABLE FOR DIALYSIS PATIENTS. Specimen slightly ictericCBC W/PLT COUNT & AUTO [id number] 06:53 :00 Test Item Value Reference Range Comments WHITE BLOOD CELL COUNT (BEAKER) (test wapp=398) 3.5 K/ L 4.0-10.0 RED BLOOD CELL COUNT (BEAKER) (test wjtu=536) 1.83 M/ L 4.20-5.80 HEMOGLOBIN (BEAKER) (test rfpy=006) 7.3 GM/DL 13.0-16.8 HEMATOCRIT (BEAKER) (test xhen=162) 19.9 % 40.0-50.0 MEAN CORPUSCULAR VOLUME (BEAKER) (test ddgz=623) 109.0 fL 82.0-98.0 MEAN CORPUSCULAR HEMOGLOBIN (BEAKER) (test 39.9 pg 27.0-33.0 edjm=248) MEAN CORPUSCULAR HEMOGLOBIN CONC (BEAKER) (test 36.6 GM/DL 32.0-36.0 lkit=555) RED CELL DISTRIBUTION WIDTH (BEAKER) (test 14.3 % 10.3-14.2 dyuv=668) PLATELET COUNT (BEAKER) (test whzt=758) 35 K/CU MM 150-430 MEAN PLATELET VOLUME (BEAKER) (test rdhf=463) 6.6 fL 6.5-10.5 NUCLEATED RED BLOOD CELLS (BEAKER) (test 0 /100 WBC 0-0 jpkf=551) NEUTROPHILS RELATIVE PERCENT (BEAKER) (test 60 % xjtc=821) LYMPHOCYTES RELATIVE PERCENT (BEAKER) (test 18 % zhit=524) MONOCYTES RELATIVE PERCENT (BEAKER) (test 17 % eqtj=954) EOSINOPHILS RELATIVE PERCENT (BEAKER) (test 6 % mfns=437) BASOPHILS RELATIVE PERCENT (BEAKER) (test 0 % uhqd=950) NEUTROPHILS ABSOLUTE COUNT (BEAKER) (test 2.06 K/ L 1.80-8.00 trde=681) LYMPHOCYTES ABSOLUTE COUNT (BEAKER) (test 0.61 K/ L 1.48-4.50 nwjt=379) MONOCYTES ABSOLUTE COUNT (BEAKER) (test qhax=838) 0.58 K/ L 0.00-1.30 EOSINOPHILS ABSOLUTE COUNT (BEAKER) (test 0.19 K/ L 0.00-0.50 uqyl=701) BASOPHILS ABSOLUTE COUNT (BEAKER) (test qfac=394) 0.01 K/ L 0.00-0.20 0.00PROTHROMBIN [id number] 06:39:00 Test Item Value Reference Range Comments PROTIME (BEAKER) (test kcmi=850) 30.6 seconds 11.7-14.7 INR (BEAKER) (test rjqr=525) 2.9 <=5.9 RECOMMENDED COUMADIN/WARFARIN INR THERAPY RANGESSTANDARD DOSE: 2.0 - 3.0 Includes: PROPHYLAXIS forvenous thrombosis, systemic embolization; TREATMENT for venous thrombosis and/or pulmonary embolus.HIGH RISK: Target INR is 2.5-3.5 for patients with mechanical heart valves.URINALYSIS W/ [id number] 16 :58:00 Test Item Value Reference Range Comments COLOR (BEAKER) (test jxyg=555) Yellow CLARITY (BEAKER) (test rwdh=889) Clear SPECIFIC GRAVITY UA (BEAKER) (test 1.025 1.001-1.035 azbs=568) PH UA (BEAKER) (test rkok=628) 7.0 5.0-8.0 PROTEIN UA (BEAKER) (test mczq=542) Negative Negative GLUCOSE UA (BEAKER) (test vtha=758) Negative Negative KETONES UA (BEAKER) (test qmus=463) Negative Negative BILIRUBIN UA (BEAKER) (test wtkz=245) Positive Negative BLOOD UA (BEAKER) (test pshr=800) Negative Negative NITRITE UA (BEAKER) (test zxio=923) Negative Negative LEUKOCYTE ESTERASE UA (BEAKER) (test Negative Negative xjiv=464) UROBILINOGEN UA (BEAKER) (test qvev=356) 8.0 mg/dL 0.2-1.0 RBC UA (BEAKER) (test npgr=162) 0 /HPF WBC UA (BEAKER) (test crhu=203) 2 /HPF MUCUS (BEAKER) (test lplu=4818) Rare HYALINE CASTS (BEAKER) (test geoq=779) 3 /LPF SOURCE(BEAKER) (test yind=4427) Urine, Clean Catch [id number] 13:32:00 Test Item Value Reference Range Comments FERRITIN (BEAKER) (test yxmz=470) 116 ng/mL 5-275 Effective 09/13/2014: Reference Range ChangeNew: Male 5-275 Previous: Male 22-322 Female 5-275 Female 10-291HEPATITIS A ANTIBODY, [id number] 13:19:00 Test Item Value Reference Range Comments HEPATITIS A IGG ANTIBODY (BEAKER) (test zsjz=5570) Reactive Nonreactive ALPHA FETOPROTEIN (AFP), TUMOR [id number] 13:17:00 Test Item Value Reference Range Comments ALPHA-FETOPROTEIN (BEAKER) (test axdc=8154) 4.5 ng/mL <10.0 Effective 09/13/2014: Reference Range ChangeNew: <10.0 Previous: 0.0- 8.0HEPATITIS C [id number] 13:17:00 Test Item Value Reference Range Comments HEPATITIS C ANTIBODY (BEAKER) (test vciy=098) Nonreactive Nonreactive BODY FLUID CELL COUNT WITH [id number] 13:03:00 Test Item Value Reference Range Comments APPEARANCE FLUID (BEAKER) (test rkzr=203) Cloudy Clear COLOR FLUID (BEAKER) (test rstt=035) Yellow Colorless, Straw RBC FLUID (BEAKER) (test ipmw=053) 1519 /cu mm <=1 ADJUSTED WBC FLUID (BEAKER) (test tnjy=8562) 108 /cu mm <=5 LINING CELLS (BEAKER) (test mdot=4780) 14 /cu mm <=1 NEUTROPHILS FLUID (BEAKER) (test pvru=3211) 11 % LYMPHS FLUID (BEAKER) (test ibit=081) 30 % MONO/MACROPHAGE FLUID (BEAKER) (test ugug=897) 59 % EOSINOPHILS FLUID (BEAKER) (test vizg=214) 0 % BASO FLUID (BEAKER) (test zbnt=208) 0 % CONTAINER BODY FLUID (BEAKER) (test qhem=5196) EDTA Tube BASIC METABOLIC [id number] 12:56:00 Test Item Value Reference Range Comments SODIUM (BEAKER) (test 131 meq/L 136-145 eoqx=809) POTASSIUM (BEAKER) (test 4.0 meq/L 3.5-5.1 Specimen moderately ztay=485) hemolyzed CHLORIDE (BEAKER) (test 105 meq/L 98-107 zlyz=350) CO2 (BEAKER) (test 18 meq/L 22-29 wzwx=298) BLOOD UREA NITROGEN 6 mg/dL 7-21 (BEAKER) (test anrx=071) CREATININE (BEAKER) (test 0.72 mg/dL 0.57-1.25 Specimen moderately yjhf=209) hemolyzed GLUCOSE RANDOM (BEAKER) 103 mg/dL 70-105 (test ayyi=461) CALCIUM (BEAKER) (test 7.4 mg/dL 8.4-10.2 rfuh=282) EGFR (BEAKER) (test 115 mL/min/1.73 sq m ESTIMATED GFR IS NOT dlvh=7285) ACCURATE CREATININE CLEARANCE IN PREDICTING GLOMERULAR FILTRATION RATE. ESTIMATED GFR IS NOT APPLICABLE FOR DIALYSIS PATIENTS. Specimen moderately ictericIRON, TIBC, % SAT. (WITHOUT FERRITIN)2017-02-02 12:56 :00 Test Item Value Reference Range Comments IRON (BEAKER) (test cemf=241) 55 ug/dL 40-160 TOTAL IRON BINDING CAPACITY (BEAKER) (test 175 ug/dL 250-450 ovct=397) IRON % SATURATION (2) (BEAKER) (test djhm=2618) 31 % 20-55 HEPATIC FUNCTION [id number] 12:50:00 Test Item Value Reference Range Comments TOTAL PROTEIN (BEAKER) (test 6.7 gm/dL 6.0-8.3 Specimen moderately hemolyzed skgp=726) ALBUMIN (BEAKER) (test 2.0 g/dL 3.5-5.0 Specimen moderately hemolyzed vgtg=2802) BILIRUBIN TOTAL (BEAKER) (test 5.1 mg/dL 0.2-1.2 Specimen moderately hemolyzed sacz=548) BILIRUBIN DIRECT (BEAKER) 2.8 mg/dL 0.1-0.5 Specimen moderately hemolyzed (test ivvl=619) ALKALINE PHOSPHATASE (BEAKER) 99 U/L 40-150 (test mooz=072) AST (SGOT) (BEAKER) (test 62 U/L 5-34 Specimen moderately hemolyzed hmuu=798) ALT (SGPT) (BEAKER) (test 15 U/L 6-55 Specimen moderately wkej=655) hemolyzed Specimen moderately ictericCBC W/PLT COUNT & AUTO [id number] 12: 47:00 Test Item Value Reference Range Comments WHITE BLOOD CELL COUNT (BEAKER) (test rxiu=577) 3.3 K/ L 4.0-10.0 RED BLOOD CELL COUNT (BEAKER) (test qfso=491) 2.08 M/ L 4.20-5.80 HEMOGLOBIN (BEAKER) (test xxsi=795) 7.8 GM/DL 13.0-16.8 HEMATOCRIT (BEAKER) (test hjuu=462) 22.9 % 40.0-50.0 MEAN CORPUSCULAR VOLUME (BEAKER) (test hcgm=641) 110.0 fL 82.0-98.0 MEAN CORPUSCULAR HEMOGLOBIN (BEAKER) (test 37.4 pg 27.0-33.0 tlmt=416) MEAN CORPUSCULAR HEMOGLOBIN CONC (BEAKER) (test 34.1 GM/DL 32.0-36.0 tjmh=410) RED CELL DISTRIBUTION WIDTH (BEAKER) (test 15.0 % 10.3-14.2 ljpr=433) PLATELET COUNT (BEAKER) (test vdrz=361) 48 K/CU MM 150-430 MEAN PLATELET VOLUME (BEAKER) (test egkw=300) 6.6 fL 6.5-10.5 NUCLEATED RED BLOOD CELLS (BEAKER) (test 0 /100 WBC 0-0 sakh=068) NEUTROPHILS RELATIVE PERCENT (BEAKER) (test 62 % thkz=533) LYMPHOCYTES RELATIVE PERCENT (BEAKER) (test 17 % wdpp=113) MONOCYTES RELATIVE PERCENT (BEAKER) (test 15 % xuzk=447) EOSINOPHILS RELATIVE PERCENT (BEAKER) (test 6 % gina=964) BASOPHILS RELATIVE PERCENT (BEAKER) (test 0 % bnqe=334) NEUTROPHILS ABSOLUTE COUNT (BEAKER) (test 2.03 K/ L 1.80-8.00 kktf=195) LYMPHOCYTES ABSOLUTE COUNT (BEAKER) (test 0.57 K/ L 1.48-4.50 szzo=007) MONOCYTES ABSOLUTE COUNT (BEAKER) (test uxfd=519) 0.48 K/ L 0.00-1.30 EOSINOPHILS ABSOLUTE COUNT (BEAKER) (test 0.19 K/ L 0.00-0.50 shwi=317) BASOPHILS ABSOLUTE COUNT (BEAKER) (test crsv=258) 0.01 K/ L 0.00-0.20 0.00PROTHROMBIN [id number] 12:42:00 Test Item Value Reference Range Comments PROTIME (BEAKER) (test srpa=074) 27.0 seconds 11.7-14.7 INR (BEAKER) (test heto=337) 2.5 <=5.9 RECOMMENDED COUMADIN/WARFARIN INR THERAPY RANGESSTANDARD DOSE: 2.0 - 3.0 Includes: PROPHYLAXIS forvenous thrombosis, systemic embolization; TREATMENT for venous thrombosis and/or pulmonary embolus.HIGH RISK: Target INR is 2.5-3.5 for patients with mechanical heart valves.ALBUMIN, BODY [id number] 11:46:00 Test Item Value Reference Range Comments ALBUMIN FLUID (BEAKER) (test qevp=938) 0.5 gm/dL Reference Range: No Normals Assay performance has not been validated for this type of specimen.PROTEIN, BODY [id number] 11:42:00 Test Item Value Reference Range Comments PROTEIN FLUID (BEAKER) (test rhfg=984) 1.3 g/dL Absence of reference range indicates that normals have not been defined.Assay performance has not been validated for this type of specimen.
--- OUTSIDE RECORDS SUMMARY | 2018-04-30 19:51 | XMS REPORT ---
[...] Status Dosage System Date Date Midodrine HCl [facility] 53096924361 10 MG Orally Active 1 tablet Three times a day Pantoprazole [facility] 32936114227 40 MG Orally Active 1 tablet Sodium Once a day Sodium Chloride ND 99633227013 1 GM Orally TID Active 2 tablets Ondansetron HCl ND 86255271134 4 MG Orally Active 1 tab every 8 hours as needed for Nausea and vomiting Hydrocortisone ND 70066945795 20 MG Orally AM Active 1 tablet Once a day with food or milk Ursodiol ND 76376293639 300 MG Orally Active not defined Lactulose ND 28300730089 10 GM/15ML Active 15 ml Orally TID Citalopram [facility] 76455121129 10 MG Active TAKE ONE Hydrobromide DAILY Rifaximin [facility] [address]-17 550 MG Orally Active 1 tablet Twice a day Ondansetron HCl [facility] 63543901812 4 MG Active 1 TAB EVERY 8 HOURS NEEDED FOR NAUSEA AND VOMITING ORALLY 10 DAYS Magnesium Oxide [facility] 87851157841 400 MG Orally Active 1 tablet BID as needed NuFera [facility] 76689418300 - Orally once a Active 1 tab day Hydrocortisone [facility] 13305063535 10 MG Orally PM Active 1 tablet Once a day with food or milk Results No Known Results Summary Purpose eClinicalWorks Submission
--- OUTSIDE RECORDS SUMMARY | 2018-04-30 19:52 | XMS REPORT ---
:1965 Author Organization eClinicalWorks Care Team Providers Name Role Phone Elmer Carlos Provider Role Unavailable Allergies, Adverse Reactions, Alerts Substance Reaction Event Type N.K.D.A. Info Not Available Non Drug Allergy Problems Problem Type Condition Code Onset Dates Condition Status Problem Chronic alcohol use F10.10 Active Problem History of alcohol abuse Z87.898 Active Problem Encephalopathy, hepatic K72.90 Active Problem Thrombocytopenia D69.6 Active Assessment Orthostatic hypotension I95.1 Active Problem Orthostatic hypotension I95.1 Active Assessment History of alcohol abuse Z87.898 Active Problem Hypomagnesemia E83.42 Active Problem Alcoholic cirrhosis of liver with K70.31 Active ascites Problem GERD without esophagitis K21.9 Active Problem Ascites R18.8 Active Problem Anemia, chronic disease D63.8 Active Assessment Hypomagnesemia E83.42 Active Assessment GERD without esophagitis K21.9 Active Assessment Encephalopathy, hepatic K72.90 Active Assessment Thrombocytopenia D69.6 Active Assessment Alcoholic cirrhosis of liver with K70.31 Active ascites Assessment Depression with anxiety F41.8 Active Problem Cirrhosis of liver K74.60 Active Assessment Anemia, chronic disease D63.8 Active Problem Depression with anxiety F41.8 Active Medications Medication Code Code Instructions Start End Status Dosage System Date Date Ondansetron HCl [facility] 57593929053 4 MG Orally Active 1 tab every 8 hours as needed for Nausea and vomiting Hydrocortisone ND 55329991848 20 MG Orally AM Active 1 tablet Once a day with food or milk Magnesium Oxide ND 80269776944 400 MG Orally Active 1 tablet BID as needed Rifaximin [facility] [address]-53 550 MG Orally Active 1 tablet Twice a day Pantoprazole ND 10960089468 40 MG Orally Active 1 tablet Sodium Once a day Sodium Chloride ND 31576714716 1 GM Orally TID Active 2 tablets Lactulose ND 41127390819 10 GM/15ML Active 15 ml Orally TID Ondansetron HCl [facility] 80277184591 4 MG Active 1 TAB EVERY 8 HOURS NEEDED FOR NAUSEA AND VOMITING ORALLY 10 DAYS Citalopram [facility] 68400342401 40 MG Orally Active take one Hydrobromide once a day daily Hydrocortisone [facility] 01261747401 10 MG Orally PM Active 1 tablet Once a day with food or milk NuFera [facility] 05721439016 - Orally once a Active 1 tab day Citalopram [facility] 25640256338 10 MG Active TAKE ONE Hydrobromide DAILY Ursodiol [facility] 63103828549 300 MG Orally Active not defined Midodrine HCl [facility] 80087496548 10 MG Orally Active 1 tablet Three times a day Results No Known Results Summary Purpose eClinicalWorks Submission
[2018-04-30] MEDS ORDERED: NA CHLORIDE 0.9% 1,000 ML ONE (20:10)
[2018-04-30] MEDS ORDERED: ONDANSETRON 4 MG/2 ML VIAL ONE (20:28)
[2018-04-30] MEDS ORDERED: MORPHINE 4 MG/ML SYR ONE (20:28)
[2018-04-30 20:45] LABS: Absolute Lymphocytes (CBC) 0.3 K/uL (0.7-4.9); Absolute Monocytes 0.5 K/uL (0.1-1.3); Basophils % 0.2 % (0-1.3); Eosinophils % 5.3 % (0-4.4); Hematocrit 23.9 % (39.6-49.0); Lymphocytes % 11.8 % (15.3-44.8); MCH 32.2 pg (27.0-35.0); Monocytes % 15.7 % (3.3-12.3); RBC Red Blood Cell Count 2.54 M/uL (4.33-5.43)
[2018-04-30 20:54] LABS: Albumin 3.7 g/dL (3.4-5.0); Bilirubin Direct 2.1 mg/dL (0-0.2); Bilirubin Total 2.9 mg/dL (0.2-1.0); Potassium 3.9 mmol/L (3.5-5.1); Protein, Total 6.3 g/dL (6.4-8.2)
[2018-04-30 21:03] LABS: MCV 93.9 fL (80-100)
[2018-04-30 21:04] LABS: MPV 7.5 fL (7.6-11.3)
[2018-04-30 21:56] LABS: Urine Blood NEGATIVE (NEG); Urine Glucose NEGATIVE (NEG); Urine Protein NEGATIVE (NEG); Urine Specific Gravity 1.015 (1.005-1.030); Urine pH 5.5 (5.0-7.0)
[2018-04-30 22:15] LABS: Urine Bacteria <20 /HPF (NONE SEEN); Urine Culture Reflex Order NOT NEEDED; Urine RBC <5 /HPF (NONE SEEN)
--- NOTE | 2018-04-30 23:16 | EDPHYS ---
Physician Documentation [facility] Name: Abhishek Davis Age: 52 yrs Sex: Male : 1965 Arrival Date: 04/30/2018 Time: 19:45 Bed 5 Private MD: Elmer [facility] ED Physician Carlos Segal HPI: 04/30 20:11 This 52 yrs old Male presents to ER via Wheelchair with complaints of Back pkl Pain. 20:11 The patient presents with pain that is acute. The symptoms are located in the bilateral pkl low back pain. Onset: The symptoms/episode began/occurred 2 day(s) ago. Patient had paracentesis done this morning.. Historical: - Allergies: 19:59 No Known Allergies; aj1 - Home Meds: 19:59 ursodiol 300 mg Oral cap 1 cap 2 times per day [Active]; Lactulose Oral 30 mL 3 times aj1 per day [Active]; midodrine 5 mg oral tab 3 times per day [Active]; mag oxide 400 mg daily [Active]; citalopram 10 mg tab 1 tab once daily [Active]; Xifaxan 550 mg oral tab 1 tab 2 times per day [Active]; Lasix 40 mg Oral tab 1 tab once daily [Active]; Centrum oral oral daily [Active]; - PMHx: 19:59 Anemia; Cirrhosis; renal insufficiency; Umbilical hernia; aj1 - Immunization history:: Flu vaccine is up to date. - Social history:: Smoking status: Patient/guardian denies using tobacco, Patient/guardian denies using alcohol. - Ebola Screening: : Patient denies travel to an Ebola-affected area in the 21 days before illness onset. ROS: 20:11 Eyes: Negative for injury, pain, redness, and discharge, ENT: Negative for injury, pkl pain, and discharge, Neck: Negative for injury, pain, and swelling, Cardiovascular: Negative for chest pain, palpitations, and edema, Respiratory: Negative for shortness of breath, cough, wheezing, and pleuritic chest pain. 20:11 Abdomen/GI: Positive for abdominal pain, of the right lower quadrant and left lower quadrant. 20:11 Back: Positive for pain at rest, of the bilateral lower back. 20:11 : Negative for urinary symptoms. 20:11 MS/extremity: Negative for acute changes. 20:11 Skin: Negative for rash. 20:11 Neuro: Negative for altered mental status. Exam: 20:11 Head/Face: Normocephalic, atraumatic. Eyes: Pupils equal round and reactive to light, pkl extra-ocular motions intact. Lids and lashes normal. Conjunctiva and sclera are non-icteric and not injected. Cornea within normal limits. Periorbital areas with no swelling, redness, or edema. ENT: Nares patent. No nasal discharge, no septal abnormalities noted. Tympanic membranes are normal and external auditory canals are clear. Oropharynx with no redness, swelling, or masses, exudates, or evidence of obstruction, uvula midline. Mucous membranes moist. Neck: Trachea midline, no thyromegaly or masses palpated, and no cervical lymphadenopathy. Supple, full range of motion without nuchal rigidity, or vertebral point tenderness. No Meningismus. Chest/axilla: Normal chest wall appearance and motion. Nontender with no deformity. No lesions are appreciated. Cardiovascular: Regular rate and rhythm with a normal S1 and S2. No gallops, murmurs, or rubs. Normal PMI, no JVD. No pulse deficits. Respiratory: Lungs have equal breath sounds bilaterally, clear to auscultation and percussion. No rales, rhonchi or wheezes noted. No increased work of breathing, no retractions or nasal flaring. 20:11 Abdomen/GI: Bowel sounds: normal, Palpation: abdomen is soft and non-tender, in all quadrants. 20:11 Back: pain, that is moderate, of the bilateral lower back. 20:11 : Exam negative for acute changes. 20:11 Musculoskeletal/extremity: Exam is negative for acute changes. 20:11 Skin: Exam negative for rash. 20:11 Neuro: Orientation: appropriate for stated age, Mentation: is normal, Cranial nerves: grossly normal, Motor: is normal. 20:34 Abdomen/GI: Rectal exam: Stool: guaiac negative, the exam is chaperoned by the nurse. [facility] Vital Signs: 19:59 BP 83 / 61; Pulse 95; Resp 22; Temp 98.5; Pulse Ox 98% on R/A; Weight 76.2 kg (R); aj1 Height 6 ft. 0 in. (182.88 cm) (R); Pain 10/10; 20:51 BP 102 / 76; Pulse 88; Resp 19; Pulse Ox 100% on R/A; rv 21:21 BP 102 / 75; Pulse 96; Resp 16; Pulse Ox 97% on R/A; bp 22:29 BP 100 / 76; Pulse 87; Resp 16; Pulse Ox 94% on R/A; bp 23:09 BP 107 / 77; Pulse 85; Resp 16; Pulse Ox 99% on R/A; bp 19:59 Body Mass Index 22.78 (76.20 kg, 182.88 cm) aj1 MDM: 20:02 Patient medically screened. pkl 23:12 Data reviewed: vital signs, nurses notes, lab test result(s), radiologic studies, CT pkl scan. 04/30 20:09 Order name: Amylase, Serum; Complete Time: 21:22 pkl 04/30 20:09 Order name: Basic Metabolic Panel; Complete Time: 21:22 pkl 04/30 20:09 Order name: CBC with Diff; Complete Time: 21:22 pkl 04/30 20:09 Order name: Creatinine for Radiology; Complete Time: 21:22 pkl 04/30 20:09 Order name: Hepatic Function; Complete Time: 21:22 pkl 04/30 20:09 Order name: Lipase; Complete Time: 21:22 pkl 04/30 20:09 Order name: Urine Microscopic Only; Complete Time: 22:25 pkl 04/30 21:46 Order name: Urine Dipstick--Ancillary (enter results); Complete Time: 22:25 eb 04/30 22:15 Order name: Abdomen EDMS 04/30 20:09 Order name: IV Saline Lock; Complete Time: 20:35 pkl 04/30 20:09 Order name: Labs collected and sent; Complete Time: 20:35 pkl 04/30 20:09 Order name: Urine Dipstick-Ancillary (obtain specimen); Complete Time: 22:49 pkl Administered Medications: 20:34 Drug: NS 0.9% 500 ml Route: IV; Rate: bolus; Site: right antecubital; rv 20:50 Follow up: Response: No adverse reaction; IV Status: Completed infusion rv 20:34 Drug: morphine 2 mg Route: IVP; Site: right antecubital; rv 21:37 Follow up: Response: No adverse reaction; Pain is decreased rv 20:34 Drug: Zofran 4 mg Route: IVP; Site: right antecubital; rv 21:37 Follow up: Response: No adverse reaction rv 20:50 Drug: NS 0.9% 1000 ml Route: IV; Rate: 100 ml/hr; Site: right antecubital; rv Point of Care Testing: Guaiac: 20:45 Stool Guaiac: Negative; Stool Hemoccult Control: Pass; rv Disposition: 04/30/18 23:15 Discharged to Home. Impression: Back pain. Cholelithiasis. S/P paracentesis. Cirrhosis of liver. Anemia. Chronic renal disease. - Condition is Stable. - Prescriptions for Ultram 50 mg Oral Tablet - take 1 tablet by ORAL route every 8 hours As needed; 20 tablet. - Medication Reconciliation Form, Thank You Letter, Antibiotic Education, Prescription Opioid Use form. - Follow up: Melo Motley MD; When: 2 - 3 days; Reason: Re-evaluation by your physician. - Problem is new. - Symptoms have improved. Signatures: Dispatcher [employer] Alyx Yip RN RN aj1 Carlos Segal MD MD pkl Nima Singleton RN RN rv Corrections: (The following items were deleted from the chart) 22:15 20:12 Abdomen Pelvis W Con+CT.RAD.BRZ ordered. [facility] 23:34 23:15 04/30/2018 23:15 Discharged to Home. Impression: Back pain. Cholelithiasis. S/P rv paracentesis. Cirrhosis of liver. Anemia. Chronic renal disease. Condition is Stable. Forms are Medication Reconciliation Form, Thank You Letter, Antibiotic Education, Prescription Opioid Use. Follow up: Melo Motley; When: 2 - 3 days; Reason: Re-evaluation by your physician. Problem is new. Symptoms have improved. pkl
--- NOTE | 2018-04-30 23:16 | ER ---
Nurse's Notes [facility] Name: Abhishek Davis Age: 52 yrs Sex: Male : 1965 Arrival Date: 04/30/2018 Time: 19:45 Bed 5 Private MD: Carlos Payne Diagnosis: Back pain. Cholelithiasis. S/P paracentesis. Cirrhosis of liver. Anemia. Chronic renal disease Presentation: 04/30 19:51 Presenting complaint: Patient states: Bilateral low back pain for the past 2 days. aj1 States that it was hurting before he went to have a paracentesis done this morning, but he felt a little better afterwards so he went home. Denies N/V/D/fever. Reports weakness, dizziness. Transition of care: patient was not received from another setting of care. Onset of symptoms was April 28, 2018. Risk Assessment: Do you want to hurt yourself or someone else? Patient reports no desire to harm self or others. Initial Sepsis Screen: Does the patient meet any 2 criteria? Systolic BP < 90 mmHg. HR > 90 bpm. Yes. Care prior to arrival: None. 19:51 Method Of Arrival: Wheelchair aj1 19:51 Acuity: KACEY 2 aj1 21:22 Initial Sepsis Screen: Does the patient have a suspected source of infection? No. rv Patient's initial sepsis screen is negative. Triage Assessment: 19:59 General: Appears in no apparent distress. uncomfortable, Behavior is calm, cooperative, aj1 appropriate for age. Pain: Complains of pain in low back area Pain radiates to abdomen Pain currently is 10 out of 10 on a pain scale. Quality of pain is described as aching, sharp, stabbing, Pain began 2-3 days ago. Is continuous. Neuro: Level of Consciousness is awake, alert, obeys commands, Speech is normal, Facial symmetry appears normal. Cardiovascular: Patient's skin is warm and dry. Respiratory: Airway is patent Respiratory effort is even, unlabored, Respiratory pattern is regular, symmetrical. GI: Abdomen is distended, Patient currently denies diarrhea, nausea, vomiting. : No signs and/or symptoms were reported regarding the genitourinary system. Derm: Skin is jaundiced. Musculoskeletal: Circulation, motion, and sensation intact. Historical: - Allergies: 19:59 No Known Allergies; aj1 - Home Meds: 19:59 ursodiol 300 mg Oral cap 1 cap 2 times per day [Active]; Lactulose Oral 30 mL 3 times aj1 per day [Active]; midodrine 5 mg oral tab 3 times per day [Active]; mag oxide 400 mg daily [Active]; citalopram 10 mg tab 1 tab once daily [Active]; Xifaxan 550 mg oral tab 1 tab 2 times per day [Active]; Lasix 40 mg Oral tab 1 tab once daily [Active]; Centrum oral oral daily [Active]; - PMHx: 19:59 Anemia; Cirrhosis; renal insufficiency; Umbilical hernia; aj1 - Immunization history:: Flu vaccine is up to date. - Social history:: Smoking status: Patient/guardian denies using tobacco, Patient/guardian denies using alcohol. - Ebola Screening: : Patient denies travel to an Ebola-affected area in the 21 days before illness onset. Screenin:37 Abuse screen: Denies threats or abuse. Denies injuries from another. Nutritional rv screening: No deficits noted. Tuberculosis screening: No symptoms or risk factors identified. Fall Risk None identified. Assessment: 20:35 General: Appears in no apparent distress. comfortable, Behavior is calm, cooperative. rv Pain: Complains of pain in back. Neuro: Level of Consciousness is awake, alert, obeys commands, Oriented to person, place, time, situation. Cardiovascular: Capillary refill < 3 seconds. Respiratory: Airway is patent. GI: No signs and/or symptoms were reported involving the gastrointestinal system. : No signs and/or symptoms were reported regarding the genitourinary system. EENT: No signs and/or symptoms were reported regarding the EENT system. Derm: Bruising that is probably from previous iv insertions on both upper extremities.. 21:37 Reassessment: Patient appears in no apparent distress at this time. Patient and/or rv family updated on plan of care and expected duration. Pain level reassessed. Patient is alert, oriented x 3, equal unlabored respirations, skin warm/dry/pink. patient is comfortable on bed, vital signs are stable. 22:08 Reassessment: patient taken to CT scan. rv 22:28 Reassessment: PATIENT CAME BACK FROM CT SCAN. AWAITING RESULT. bp 23:10 Reassessment: Patient appears in no apparent distress at this time. Patient and/or rv family updated on plan of care and expected duration. Pain level reassessed. Patient is alert, oriented x 3, equal unlabored respirations, skin warm/dry/pink. vital signs are stable. Vital Signs: 19:59 BP 83 / 61; Pulse 95; Resp 22; Temp 98.5; Pulse Ox 98% on R/A; Weight 76.2 kg (R); aj1 Height 6 ft. 0 in. (182.88 cm) (R); Pain 10/10; 20:51 BP 102 / 76; Pulse 88; Resp 19; Pulse Ox 100% on R/A; rv 21:21 BP 102 / 75; Pulse 96; Resp 16; Pulse Ox 97% on R/A; bp 22:29 BP 100 / 76; Pulse 87; Resp 16; Pulse Ox 94% on R/A; bp 23:09 BP 107 / 77; Pulse 85; Resp 16; Pulse Ox 99% on R/A; bp 19:59 Body Mass Index 22.78 (76.20 kg, 182.88 cm) aj1 ED Course: 19:45 Patient arrived in ED. ds1 19:45 Carlos Payne DO is Private Physician. ds1 19:56 Triage completed. aj1 19:59 Arm band placed on Patient placed in an exam room. aj1 20:02 Carlos Segal MD is Attending Physician. pkl 20:08 Cash Torre, NIYA is Primary Nurse. bp 20:20 Inserted saline lock: 20 gauge in right antecubital area, using aseptic technique. rv 20:37 Patient has correct armband on for positive identification. Placed in gown. Bed in low rv position. Call light in reach. Side rails up X 1. Pulse ox on. NIBP on. 20:45 Served as a vp product management during rectal exam. rv 22:18 Abdomen In Process Unspecified. EDMS 23:13 Melo Motley MD is Referral Physician. pkl 23:34 IV discontinued, bleeding controlled, No redness/swelling at site. Pressure dressing rv applied. Administered Medications: 20:34 Drug: NS 0.9% 500 ml Route: IV; Rate: bolus; Site: right antecubital; rv 20:50 Follow up: Response: No adverse reaction; IV Status: Completed infusion rv 20:34 Drug: morphine 2 mg Route: IVP; Site: right antecubital; rv 21:37 Follow up: Response: No adverse reaction; Pain is decreased rv 20:34 Drug: Zofran 4 mg Route: IVP; Site: right antecubital; rv 21:37 Follow up: Response: No adverse reaction rv 20:50 Drug: NS 0.9% 1000 ml Route: IV; Rate: 100 ml/hr; Site: right antecubital; rv Point of Care Testing: Guaiac: 20:45 Stool Guaiac: Negative; Stool Hemoccult Control: Pass; rv Outcome: 23:15 Discharge ordered by . [email or web address] 23:33 Discharged to home via wheelchair. rv 23:33 Condition: stable 23:33 Discharge instructions given to patient, family, Instructed on discharge instructions, follow up and referral plans. medication usage. 23:34 Patient left the ED. rv Signatures: Dispatcher [employer] Alyx Hager RN RN aj1 Carlos Segal MD MD pkl Sanford, Demi ds1 Cash Torre RN RN bp Vicente, Ronaldo, RN RN rv
[2018-04-30 23:38] VITALS: TEMP 98.5
[2018-04-30 23:42] VITALS: BP 107/77; O2SAT 99
--- NOTE | 2018-05-01 08:18 | RAD REPORT ---
EXAM DESCRIPTION: CT - Abdomen Pelvis Wo Contrast - 05/01/2018 5:16 am CLINICAL HISTORY: Abdominal pain. back pain;Abd pain COMPARISON: Abdomen Pelvis Wo Contrast dated 03/09/2018; Paracentesis Proc Guidance dated 04/30/2018 TECHNIQUE: CT imaging of the abdomen and pelvis was performed without contrast. Solid organ and vasc ular assessment is limited due to lack of IV contrast. All CT scans are performed using dose optimization technique as appropriate and may include automated exposure control or mA/KV adjustment according to patient size. FINDINGS: Linear subsegmental atelectasis is present both lung bases, greater on the right. Cirrhotic liver is identified. Multiple gallstones are present gallbladder. Mild splenomegaly. The pa ncreas, adrenal glands and kidneys show no acute process. Moderate ascites. No bowel obstruction or free air. Moderate fecal retention in the colon. Moderate v entral hernia is present containing fat and fluid. No acute fracture is demonstrated. Moderate lumbosacral degenerative changes. IMPRESSION: Liver cirrhosis with mild splenomegaly and moderate ascites. Cholelithiasis. A limited non-contrast examination was performed as detailed.
== END 2018-04-30 23:34 | disposition home or self-care (01) ==
LOC: ER 19:44
DX: K80.20 Calculus of gallbladder without cholecystitis without obstruction (principal); K74.60 Unspecified cirrhosis of liver; D64.9 Anemia, unspecified; N18.9 Chronic kidney disease, unspecified; Z98.890 Other specified postprocedural states
CPT/HCPCS: 36415; 74176; 80048; 80076; 81003; 81015; 82150; 83690; 85025; 96374; 96375; 99284; J2405; J7030

== ENCOUNTER 2018-05-04 21:21 | Emergency (ER) | payer MEDICAID ==
--- OUTSIDE RECORDS SUMMARY | 2018-05-04 21:25 | XMS REPORT | Clinical Summary ---
:1965 Author Organization [facility] Address [address] [place] [address] Phone Care Team Providers Name Role Phone [...] mg mouth 2 (two) tablet times daily. itbtpoug-shlw-vbr-fo Take by mouth. Active lic acid (EMIFYQEGROLR-OUMH-M INERALS-FOLIC ACID) 3,500-18-0.4 unit-mg-mg Chew diphenhydrAMINE Take [...] as 1 packet 0 03/13/2018 03/22/20 Discontinued 4361-yhbveuebvkhd-bd directed. 18 tamin C (MOVIPREP) 100-7.5-2.691 gram [...] Telephone Transplant Hepatology Ade Arriaga Follow-up 8 C, RN Orders Only Transplant [...] confirm 04/28 appts w/pt.) Telephone Transplant Hepatology Corina Ade Follow-up 8 C, RN Abstract Transplant Hepatology Luis Manuel rAriagain 8 C, RN Orders Only Transplant Hepatology Corina Ade Alcoholic cirrhosis 8 C, RN of liver with ascites (HCC) Telephone Transplant Hepatology Corina Ade Labs Only 8 C, RN Orders Only Transplant Hepatology Corina Ade Alcoholic cirrhosis 8 C, RN of liver with ascites (HCC) (Primary Dx) Orders Only Transplant Hepatology Corina Ade Alcoholic cirrhosis 8 C, RN of liver with ascites (HCC) (Primary Dx);Acute kidney injury (HCC);Chronic liver failure with hepatic coma (HCC);POLLY (acute kidney injury) (HCC);Pancytopenia (HCC) Telephone Transplant Hepatology Corina Ade Labs Only 8 C, RN Telephone Transplant Hepatology Luis Manuel Arriagain Follow-up 8 C, RN Orders Only Transplant Hepatology Luis Manuel Arriagain Hypotension, 8 C, RN unspecified hypotension type (Primary Dx);Alcoholic cirrhosis of liver with ascites (HCC) Telephone Transplant Hepatology Meggan Erickson Appointment 8 E (Scheduled 04/28 clinic & mri appt w/pt. Itinerary mailed.) Orders Only Transplant Hepatology Corina Ade Hepatic 8 C, RN encephalopathy (HCC) (Primary Dx) Telephone Transplant Hepatology Corina Ade Follow-up 8 C, RN Telephone Transplant Hepatology Corina Ade Follow-up 8 C, RN Telephone Transplant Hepatology Luis Manuel Arriagain fax PET CT chest and 8 C, RN pulmonary fx tests to dr. Spann Hospital Encounter Radiology Woody Malave Abnormal CT scan, 8 MD Noman chest Hospital Encounter Gastroenterology Michael Davison, 8 Procedure Pass Gastroenterology 8 Surgery Gastroenterology Michael Davison, COLONOSCOPY 8 Hospital Encounter Pre-Admission Testing Michael Davison, Valerie HURT Anesthesia Event Gastroenterology Artem Chavarria MD Refill Hepatology Michael Davison, Screen for colon 8 MD cancer Telephone Transplant Hepatology Meggan Erickson Appointment ( LVM. 8 E Calling to schedule linnea clinic and possible MRI (Check w/Ade).) Telephone Transplant Hepatology Meggan Erickson Appointment 8 E (Scheduled 03/30 NM Pet [...] w/spouse. New dos 03/13. ) Telephone Transplant HepatMeggan Garrett Appointment 8 E (Scheduled 03/[address] scan w/pts spouse. Itinerary mailed.) Telephone Transplant Hepatology Ade Arriaga Follow-up 8 Bozena RN Orders Only Transplant Hepatology Ade Arriaga Abnormal CT scan , 8 C RN [...] NIYA Seals chest (Primary Dx) Hospital Encounter Rinku Abnormal CT scan, 8 MD Tom chest Procedure Pass 8 Surgery Rinku R & L CATH / CORONARY 8 MD Tom ANGIOS (+/- LV) Orders Only Transplant Hepatology Ade Arriaga Encounter for 8 NIYA Seals pre-transplant evaluation for liver transplant (Primary Dx);Abnormal [...] Arriaga 8 C, RN Telephone Transplant Hepatology Meggan Erickson Appointment ( LVM. 8 E Calling to confirm 02/03 clinic appt. Itinerary mailed.) Telephone Transplant Hepatology Meggan Erickson 8 E Procedure Pass Gastroenterology 8 Surgery Gastroenterology Jarred Kumari, UPPER ENDOSCOPY 8 Anesthesia Event Gastroenterology Balbir Siegel 8 SHIV Gardner Procedure Pass 8 Documentation Transplant Hepatology Law Mohini R 8 Documentation Transplant Hepatology LawMohini R 8 Orders Only General Internal 8 Medicine Abstract Transplant Hepatology Karina eBnton 8 Hospital Encounter General Internal Brann, Alcoholic cirrhosis 8 - Medicine Juner of liver with ascites MD Ghanshyam (HCC) (Primary 8 Keyla, Dx);Other ascites;POLLY MD Gilda (acute kidney injury) [...] Telephone Hepatology Brigitte Man Appointment 7 after 05/03/2017 Immunizations Name Dates Previously Given Next Due [...] POP6 POSSIBLE PCI COLONOSCOPY 01/02/2018 9:00 AM MICA MINER Other iron deficiency anemia UPPER ENDOSCOPY 01/02/2018 9:00 AM MICA MINER Other iron deficiency anemia after 05/03/2017 Results POC-Creatinine (04/28/2018 1:54 PM) Component Value Ref Range POC-Creatinine 2.0 (H)Comment: TESTED AT [facility] [address] 0.6 - 1.3 mg/[place] [address] POC-EGFR 35 mL/min/1.73M2 Specimen Performing Laboratory Blood [facility] [address] [place] [address], [place] [address] VASCULAR DIAGRAM -SCAN (04/23/2018 11:40 AM)Only the [...] None Serum blood glucose: 119 CPT Code: 90716 FINDINGS: Head and Neck: There is no [...] None Serum blood glucose: 119 CPT Code: 97948 FINDINGS: Head and Neck: There is no [...] Range POC-Glucose Meter 119 (H)Comment: TESTED AT [address] 70 - 110 mg/[place] [address] Specimen Performing Laboratory Blood [facility] [address] [address] REPORT OF PROCEDURE - ENDOSCOPY URL (03/25/2018 2:49 PM)Only the most recent of3 resultswithin the time period is included.PULMONARY FUNCTION - SCAN (2017 10:13 AM)Pulmonary Funct Lab Spirometry (03/03/2018 2:56 PM) Narrative Candido Alejandra, BLOWER MECHANIC, GRADER OPERATOR 03/03/20182:56 PM [facility] PFT CHARTING REPORT Infection Control/Hand Hygiene procedures followed throughout the encounter with patient: Yes Patient Identification Method: Patient name verified on armband, and Medical record on armband, Is the order complete?: Yes Account ID#: [id number] Patient Name: Abhishek Arrieta Birthdate: 1965 Age: [...] period is included. Specimen Performing Laboratory Urine [employer] [address] [facility] [place] [address] CBC with platelet count + automated diff [...] 1 % Specimen Performing Laboratory Blood [facility] [address] [place] [address] Prothrombin time/INR (03/03/2018 1:06 PM)Only the most recent of13 resultswithin the time period is included. Component Value Ref Range Protime 19.0 (H) 11.7 - 14.7 seconds INR 1.6 <=5.9 Specimen Performing Laboratory Blood [address] [address] Narrative RECOMMENDED COUMADIN/WARFARIN INR THERAPY RANGES STANDARD DOSE: 2.0 - 3.0 Includes: PROPHYLAXIS for venous thrombosis, systemic embolization; TREATMENT for venous thrombosis and/or pulmonary embolus. HIGH RISK: Target INR is 2.5-3.5 for patients with mechanical heart valves. CBC with platelet count + automated diff (03/03/2018 1:06 PM)Only the most recent of17 resultswithin the time period is included. Specimen Performing Laboratory Blood [facility] ([facility]) Narrative The following orders were created for panel order CBC with platelet count + automated diff. Procedure Abnormality Status --------- ------ CBC with platelet count ...[[id number]]AbnormalFinal result Please view results for these tests on the individual orders. Bilirubin, direct (03/03/2018 1:06 PM)Only the most recent of3 resultswithin the time period is included. Component Value Ref Range Bilirubin, Direct 2.8 (H) 0.1 - 0.5 mg/dL Specimen Performing Laboratory Blood [address] [address] Comprehensive metabolic panel (03/03/2018 1:06 PM)Only the [...] DIALYSIS PATIENTS. Specimen Performing Laboratory Blood [facility] [address] [address] Narrative Specimen slightly icteric CARDIAC CATH REPORT - SCAN (02/24/2018 8:50 PM)ECG 12 lead (02/23/2018 8:36 AM )Only the most recent of2 resultswithin the time period is included. Specimen Performing Laboratory [employer] Narrative Ventricular Rate 81 BPM Atrial Rate 81 BPM P-R Interval 172 ms QRS Duration 92 ms Q-T Interval 386 ms QTC Calculation(Bazett) 448 ms P [place] 63 degrees R [place] 8 degrees T [place] 48 degrees Normal sinus rhythm Normal ECG [...] 386 ms QTC Calculation(Bazett) 448 ms P [place] 63 degrees R [place] 8 degrees T [place] 48 degrees Normal sinus rhythm Normal ECG [...] 0 /100 WBC Specimen Performing Laboratory Blood [address] [address] Basic metabolic panel (02/23/2018 8:00 AM)Only the [...] FOR DIALYSIS PATIENTS. Specimen Performing Laboratory Blood [address] [address] Narrative Specimen slightly icteric EKG-SCANNED (01/08/2018 10:12 [...] MD Report Verified Date/Time:01/06/2018 11:15:08 Reading Location: [facility] Radiology Reading Room Procedure Note Interface, External [...] Report Verified Date/Time: 01/06/2018 11:15:08 Reading Location: [facility] Radiology Reading Room knee complete 4 views [...] MD Report Verified Date/Time:01/06/2018 11:15:08 Reading Location: [facility] Radiology Reading Room Procedure Note Interface, External [...] Report Verified Date/Time: 01/06/2018 11:15:08 Reading Location: [facility] Radiology Reading Room Calcium, Ionized (01/06/2018 5:16 AM)Only the most recent of5 resultswithin the time period is included. Component Value Ref Range Calcium, Ion 1.11 (L) 1.12 - 1.27 mmol/L pH, Blood 7.53 Specimen Performing Laboratory Blood - Arm, [address] [address] Phosphorus (01/06/2018 5:16 AM)Only the most recent of6 resultswithin the time period is included. Component Value Ref Range Phosphorus 3.6 2.3 - 4.7 mg/dL Specimen Performing Laboratory Blood - Arm, [address] [address] Magnesium (01/06/2018 5:16 AM)Only the most recent of7 resultswithin the time period is included. Component Value Ref Range Magnesium 2.0 1.6 - 2.6 mg/dL Specimen Performing Laboratory Blood - Arm, [address] [address] Cortisol, 60 minutes (01/05/2018 10:14 PM) Component Value Ref Range Cortisol, Baseline 4.8 mcg/dL Cortisol 30 minute 9.2 mcg/dL Cortisol, 60 Minute 12.6 ug/dL Specimen Performing Laboratory Blood - Arm, [address] [address] Narrative ACTH STIMULATION TEST INTERPRETATION GUIDELINES (Synonyms: [...] study by Mindy et al ( NEVAEH 2000,283(8):3604-45), the ACTH Stimulation Test provides important prognostic [...] Specimen Performing Laboratory Blood - Arm, Left [address] [address] Narrative ACTH STIMULATION TEST INTERPRETATION GUIDELINES (Synonyms: [...] Performing Laboratory Blood - Arm, Left [facility] [address] [address] Narrative ACTH STIMULATION TEST INTERPRETATION GUIDELINES (Synonyms: [...] study by Mindy et al ( NEVAEH 2000,283(8):1848-45), the ACTH Stimulation Test provides important prognostic [...] stimulation. Procedure Abnormality Status --------- ------ Cortisol, baseline[[id number]] Final result Cortisol, 30 minutes[[id number]] Final result Cortisol, 60 minutes[[id number]] Final result Please view results for these tests on the individual orders. ACTH (01/05/2018 9:12 PM) Component Value Ref Range ACTH 10 6 - 50 pg/mL Comment: Reference range applies only to the specimens collected between 7am-10am. Specimen Performing Laboratory Blood - Arm, Left [facility] [address] [address] Narrative Performing Lab [facility] [address] [address] Clau Avila MD, PhD US paracentesis (01/05/2018 5:34 PM)Only the most recent of4 resultswithin the time period is included. Specimen Performing Laboratory [employer] Narrative FINAL REPORT History: Ascites. PROCEDURE: Following informed written consent, the patient's right lower quadrant was prepped and draped in the usual sterile manner. 2% lidocaine was given locally for anesthesia. No conscious sedation was administered. Using ultrasound guidance, a 5 Cymraes one-step catheter was advanced percutaneously into the [...] MD Report Verified Date/Time:01/05/2018 17:54:16 Reading Location: [address] Ultrasound Reading Room Procedure Note Interface, External Ris In - 01/05/2018 5:56 PM CDT FINAL REPORT History: Ascites. PROCEDURE: Following informed written consent, the patient's right lower quadrant was prepped and draped in the usual sterile manner. 2% lidocaine was given locally for anesthesia. No conscious sedation was administered. Using ultrasound guidance, a 5 Cymraes one-step catheter was advanced percutaneously into the [...] Report Verified Date/Time: 01/05/2018 17:54:16 Reading Location: [address] Ultrasound Reading Room Manual Differential (01/05/2018 6:10 AM)Only the most recent of6 resultswithin the time period is included. Component Value Ref Range Total Counted WBC Morphology Normal Platelet Morphology Normal Anisocytosis 1+ few Specimen Performing Laboratory Blood - Arm, Left [address] [address] Cortisol (01/05/2018 6:10 AM) Component Value Ref Range Cortisol, Total 2.7 (L) 3.7 - 19.4 ug/dL Specimen Performing Laboratory Blood - Arm, Left [address] [address] Electrolytes (01/04/2018 4:46 PM) Component Value Ref Range Sodium 129 (L) 136 - 145 meq/L Potassium 5.5 (H) 3.5 - 5.1 meq/L Chloride 101 98 - 107 meq/L CO2 26 22 - 29 meq/L Specimen Performing Laboratory Blood [address] [address] Narrative Call [phone] with results TRANSFUSION SERVICE REPORT - SCAN (01/03/2018 5:53 PM)Only the most recent of6 resultswithin the time period is included.Vitamin B12 and Folate (01/03/2018 2: 57 PM) Component Value Ref Range Vitamin B12 829 (H) 213 - 816 pg/mL Folate 18.9 >=7.0 ng/mL Specimen Performing Laboratory Blood - Arm, Right [address] [address] Prepare Leuko-Red RBC (01/02/2018 11:55 PM)Only the most recent of3 resultswithin the time period is included. Component Value Ref Range CROSSMATCH COMPATIBLE Unit ABO A Pos UNIT NUMBER [id number] Status TRANSFUSED Blood Bank Product RED BLOOD CELLS PRODUCT CODE [id number] Specimen Performing Laboratory Other [employer] [place] Transfuse Leuko-Red RBC (01/01/2018 7:11 PM)Only the most recent of6 resultswithin the time period is included.Type and screen, automated (2017 2:20 PM)Only the most recent of3 resultswithin the time period is included. Component Value Ref Range ABO/RH AUTOMATED (BEAKER) A POSITIVE Ab Scrn NEGATIVE Specimen Performing Laboratory Blood [address] [address] Body fluid cell count with differential (01/01/2018 [...] Performing Laboratory Body Fluid - Ascites [facility] [address] [address] Hereditary Hemochromatosis DNA (01/01/2018 5:26 AM)Only the [...] for at-risk family members. Pablo Meade, Ph.D., [facility] Director, Molecular Genetics Hereditary hemochromatosis (HH) [...] of these results, please contact your local [employer] genetic counselor or call [phone] ([phone]). This test was developed and its analytical performance characteristics have been determined by [employer], [place], [place]. It has not been cleared or approved by the FDA. This assay has been validated pursuant to the CLIA regulations and is used for clinical purposes. For more information on this test, go to http://education.Rx Network/faq/hemochromatos Specimen Performing Laboratory Blood - Line, Venous [email or web address] [address] [place] [address] Narrative Performing Lab [address] [facility], [address] [place] [address] [place] [address] Ly Hansen MD, PhD CT chest without IV contrast (12/31/2017 7:21 PM) Specimen Performing Laboratory REPP RIS Narrative FINAL REPORT HISTORY: Lung nodule, [...] MD Report Verified Date/Time:12/31/2017 19:24:12 Reading Location: [address] Consult Reading Room Procedure Note Interface, External Ris In - 12/31/2017 7:26 PM MICA MINER FINAL REPORT HISTORY: Lung nodule, >=1cm COMPARISON [...] Report Verified Date/Time: 12/31/2017 19:24:12 Reading Location: [facility] [id number] Consult Reading Room Blood gas, [...] Specimen Performing Laboratory Blood, Arterial - Arm, [address] [address] Peripheral Blood Smear - Hold only (12/31/2017 4:48 PM) Component Value Ref Range Peripheral Smear Save prepared and saved smear, 12/31/17 Specimen Performing Laboratory Blood - Arm, [address] [address] Reticulocyte count (12/31/2017 4:48 PM) Component Value Ref Range % Retic 3.5 (H) 0.5 - 1.8 % Specimen Performing Laboratory Blood - Arm, Right [address] [address] Lactate dehydrogenase (LDH) (12/31/2017 4:48 PM) Component Value Ref Range LDH 112 (L) 125 - 220 U/L Specimen Performing Laboratory Blood - Arm, [address] [address] Hemoglobin and hematocrit (12/31/2017 1:03 PM) Component Value Ref Range Hemoglobin 7.3 (L) 13.7 - 17.5 GM/DL Hematocrit 21.9 (L) 40.1 - 51.0 % Specimen Performing Laboratory Blood - Arm, [address] [address] NM myocardial perfusion SPECT,pharm(Lexiscan) (12/31/2017 12:10 PM) Specimen Performing Laboratory REPP RIS Narrative FINAL REPORT PROCEDURE:Rest/Stress MYOCARDIAL PERFUSION SPECT with regadenoson\\XA9\\ CPT CODE:50913 INDICATION:Liver transplant evaluation HISTORY:Cardiac risk factors: Stroke. [...] function.5. Normal extracardiac tracer distribution.6. No previous [facility] study for comparison. NONINVASIVE RISK STRATIFICATION: The above findings are considered low risk (<1% annual mortality rate) based on the following criterion: - Normal or small myocardial perfusion defect at rest or with stress (JAC. 2012;59(9):857-60.) Signed: Mabel Napier MD Report Verified Date/Time:12/31/2017 15:12:03 Reading Location: [address] Reading Room Procedure Note Interface, External Ris In - 12/31/2017 3:14 PM MICA MINER FINAL REPORT PROCEDURE: Rest/Stress MYOCARDIAL PERFUSION SPECT with regadenoson\\XA9\\ CPT CODE: 81092 INDICATION: Liver transplant evaluation HISTORY: Cardiac risk [...] Normal extracardiac tracer distribution. 6. No previous [facility] study for comparison. NONINVASIVE RISK STRATIFICATION: The above findings are considered low risk (<1% annual mortality rate) based on the following criterion: - Normal or small myocardial perfusion defect at rest or with stress (JACC. 2012;59(9):857-81.) Signed: Mabel Napier MD Report Verified Date/Time: 12/31/2017 15:12:03 Reading Location: [address] Reading Room Treadmill tolerance(Non-Nuclear Treadmill) (12/31/2017 10:40 AM) Specimen Performing Laboratory [facility] Narrative Protocol Name Lexiscan Time In Exercise [...] No meds Confirmed by fellow Patrick Katz ([id number]) on 12/31/2017 10:58:52 AM Confirmed by MD COKER JORGE ([id number]) on 01/02/2018 11:06:54 AM Procedure Note Interface, External Ris In - 01/02/2018 11:07 AM MICA MINER Protocol Name Lexiscan Time In Exercise Phase [...] No meds Confirmed by fellow Patrick Katz ([id number]) on 12/31/2017 10:58:52 AM Confirmed by MD COKER JORGE ([id number]) on 01/02/2018 11:06:54 AM ECHOCARDIOGRAM REPORT - SCAN (12/31/2017 9:50 AM)PT/aPTT (12/31/2017 8:08 AM) Only the most recent of3 resultswithin the time period is included. Component Value Ref Range Protime 24.0 (H) 11.7 - 14.7 seconds INR 2.2 <=5.9 PTT 55.2 (H) 22.5 - 36.0 seconds Specimen Performing Laboratory Blood - Arm, [address] [address] Narrative RECOMMENDED COUMADIN/WARFARIN INR THERAPY RANGES STANDARD DOSE: 2.0 - 3.0 Includes: PROPHYLAXIS for venous thrombosis, systemic embolization; TREATMENT for venous thrombosis and/or pulmonary embolus. HIGH RISK: Target INR is 2.5-3.5 for patients with mechanical heart valves. PERIPHERAL VASCULAR REPORT - SCAN (12/31/2017 7:20 AM)XR chest 2 views (2017 11:15 PM) Specimen Performing Laboratory REPP RIS Narrative FINAL REPORT EXAMINATION: 2 VIEW [...] MD Report Verified Date/Time:12/30/2017 23:32:31 Reading Location: [address] Reading Room Procedure Note Interface, External Ris In - 12/30/2017 11:34 PM MICA MINER FINAL REPORT EXAMINATION: 2 VIEW CHEST CLINICAL [...] Report Verified Date/Time: 12/30/2017 23:32:31 Reading Location: [address] Reading Room mandible min 4 views [...] MD Report Verified Date/Time:12/31/2017 01:37:57 Reading Location: [address] Reading Room Procedure Note Interface, External Ris In - 12/31/2017 1:40 AM MICA MINER FINAL REPORT EXAMINATION: MANDIBULAR SERIES, 6 VIEWS [...] Report Verified Date/Time: 12/31/2017 01:37:57 Reading Location: [address] Reading Room W CONTRAST & DOPPLER (12/30/2017 7:06 PM) Component Value Ref Range Ejection Fraction Specimen Performing Laboratory [facility] Narrative Transthoracic Echocardiography Report (TTE) Demographics Patient Name Madison ARRIETA of Study 12/30/2017 [id number] Male Visit Number [id number] Unknown [id number] Room Number 923 Number Date of Birth1965Referring Physician Pacheco Mota MD Age52 year(s)Carpenter/Labor Judi Pearson Interpreting [facility] Needs to be Pre Physician [...] External Ris In - 12/31/2017 9:21 AM MICA MINER Transthoracic Echocardiography Report (TTE) Demographics Patient Name ABHISHEK ARRIETA Date of Study 12/30/2017 Gender Male Visit Number [id number] Race Unknown Room Number 923 Number Date of 1965 Referring Physician Pacheco Mota MD Age 52 year(s) Carpenter/Labor Judi Pearson Interpreting [facility] Needs to be Pre Physician [...] Ref Range Ejection Fraction Specimen Performing Laboratory [facility] Impressions Right Impression 1. There is [...] Patient Name Madison ARRIETA of Study 12/30/2017 [id number] Visit Number [id number] Male Accession Number [id number] [facility] 1965 [facility] PhysicianKirma SonographerLuis Carlosther Gregory Rajan T Physician , RPVI Procedure Type of Study: Cerebral: Carotid, CAROTID DOPPLER, BILATERAL. Indications for Study:Liver transplant evaluation. Patient Status:Routine. Study Location:Vascular Lab. Technical Quality:Adequate visualization. Risk Factors History of Disease + +----+ + !Diagnosis !Date!Comments ! + +----+ + !History/Risk!!Alcoholic cirrhosis, Ascites, Liver Failure, POLLY! !Factors:!! ! + +----+ + Procedure Note Interface, External Ris In - 12/31/2017 5:43 AM MICA MINER PV LAB - Carotid Duplex Study Demographics Patient Name ABHISHEK ARRIETA Date of Study 12/30/2017 Age 52 Visit Number [id number] Gender Male Accession Number [id number] Date of 1965 Referring Ananda Mckay Room Number 923 Physician Noman Carpenter/Labor Massiel Riddle Interpreting Gregory Lopez T Physician , RPVI Procedure Type of [...] This test was performed using the Siemens ([employer]) Chemiluminescent method. Values obtained from different assay methods cannot be used interchangeably. CA19-9 levels, regardless of value, should not be interpreted as absolute evidence of the presence or absence of disease. Specimen Performing Laboratory Blood [facility] [address] [facility] [place] [address] Narrative Performing Lab [facility] [place] [id number] [place] [address] Clau Avila MD, PhD Hemoglobin A1c (12/30/2017 3:19 PM) Component Value Ref Range Hemoglobin A1C 4.1 (L) 4.3 - 6.1 % Specimen Performing Laboratory Blood [facility] [address] [address] Etfxb-9-Nyfgddhhopy Phenotype (12/30/2017 3:18 PM) Component Value Ref Range A-1 Antitryp Phenotyp SEE BELOW Comment: THIS PATIENT'S OXSZJ-0-CEXZIERZWII PHENOTYPE IS PI*MM. 90% of normal individuals have the MM phenotype, with normal quantitative AAT levels. Many phenotypic patterns have been described, including deficiency states with F, S, Z, or other alleles. As a general estimation, compared to M allele of 100% of normal U-6-Yvbevykmglc protein, the S allele produces approximately 60% and the Z allele 20%. For example, an MS phenotype would have about 80% of normal U-8-Urkcpflqnqc protein level, a 50% contribution from the M allele and 30% from the S allele. A ZZ phenotype would have about 20% of normal levels, a 10% contribution from each Z gene. The F allele has normal S-4-Ctqxczrlybm levels, but the kinetics of elastase inhibition [...] Laboratory Blood - Other [facility] [place] [id number] [place] [address] Narrative Performing Lab [facility] [address] [place] [address] Clau Avila MD, PhD Zinc (12/30/2017 3:18 PM) Component Value Ref Range Zinc 32 (L) 60 - 130 mcg/dL Comment: This test was developed and its analytical performance characteristics have been determined by [employer] [facility]. It has not been cleared or approved by the [place] Food and Drug Administration. This assay has been validated pursuant to the CLIA regulations and is used for clinical purposes. Specimen Performing Laboratory Blood [facility] [address] [address] Narrative Performing Lab *[facility], [address] [place] [phone] Clau Avila MD, PhD Testosterone, free + total (12/30/2017 3:18 PM) Component Value Ref Range Testosterone 90 (L) 250 - 1100 ng/dL Testosterone, Free 12.6 (L) 35.0 - 155.0 pg/mL Comment: This test was developed and its analytical performance characteristics have been determined by [employer] [facility]. It has not been cleared or approved by the [place] Food and Drug Administration. This assay has been validated pursuant to the CLIA regulations and is used for clinical purposes. Specimen Performing Laboratory Blood [address] [address] Narrative Performing Lab *[facility], [address] [place] [phone] Clau Avila MD, PhD Iron, TIBC, % sat. (without ferritin) (12/30/2017 3:17 PM) Component Value Ref Range Iron 90 40 - 160 ug/dL TIBC 85 (L) 250 - 450 ug/dL Iron % Saturation 106 (H) 20 - 55 % Specimen Performing Laboratory Blood [address] [address] HIV-1 Antigen with HIV-1/2 Antibody (12/30/2017 3:17 PM) Component Value Ref Range HIV-1 Antigen with HIV 1&2 Antibody Nonreactive Nonreactive Specimen Performing Laboratory Blood [address] [address] Hepatitis C antibody (12/30/2017 3:17 PM) Component Value Ref Range Hepatitis C Ab Nonreactive Nonreactive Specimen Performing Laboratory [address] [address] Hepatitis A antibody, IgM (12/30/2017 3:17 PM) Component Value Ref Range Hep A IgM Nonreactive Nonreactive Specimen Performing Laboratory [address] [address] Hepatitis B core antibody, IgM (12/30/2017 3:17 PM) Component Value Ref Range Hep B C IgM Nonreactive Nonreactive Specimen Performing Laboratory [address] [address] Hepatitis B core antibody, total (12/30/2017 3:17 PM) Component Value Ref Range Hep B Core Total Ab Nonreactive Nonreactive Specimen Performing Laboratory [address] [address] Vitamin D, 25-Hydroxy (12/30/2017 3:17 PM) Component Value Ref Range Vitamin D 25-Hydroxy 6.9 6.6 - 49.9 ng/mL Specimen Performing Laboratory [address] [address] Narrative Effective 08/06/2017: Reference Range Change New: 6.6-49.9 ng/mL Previous: 13.0-47.8 ng/mL Recommended Vitamin D Target Range: 30.0-40.0 ng/mL RPR (12/30/2017 3:17 PM) Component Value Ref Range RPR Nonreactive Nonreactive Specimen Performing Laboratory [address] [address] Hepatitis B surface antibody (12/30/2017 3:17 PM) Component Value Ref Range Hep B S Ab <8.0 <8.0 mIU/mL Specimen Performing Laboratory [address] [address] Hepatitis B surface antigen (12/30/2017 3:17 PM) Component Value Ref Range hepatitis B Surface Ag Nonreactive Nonreactive Specimen Performing Laboratory [address] [address] Fibrinogen (12/30/2017 3:17 PM) Component Value Ref Range Fibrinogen 161 (L) 225 - 434 mg/dl Specimen Performing Laboratory [address] [address] T3 (12/30/2017 3:17 PM) Component Value Ref Range T3, Total 42 (L) 48 - 159 ng/dL Specimen Performing Laboratory Blood [address] [address] Transferrin (12/30/2017 3:17 PM) Component Value Ref Range Transferrin 65 (L) 174 - 382 mg/dL Specimen Performing Laboratory [address] [address] Narrative Specimen slightly icteric TSH (12/30/2017 3:17 PM) Component Value Ref Range TSH 1.55 0.35 - 4.94 uIU/mL Specimen Performing Laboratory [address] [address] T4 (12/30/2017 3:17 PM) Component Value Ref Range T4, Total 3.5 (L) 4.9 - 11.7 ug/dL Specimen Performing Laboratory [address] [address] PSA (12/30/2017 3:17 PM) Component Value Ref Range PSA 0.1 0.0 - 4.0 ng/mL Specimen Performing Laboratory [address] [address] Ferritin (12/30/2017 3:17 PM) Component Value Ref Range Ferritin 1460 (H) 5 - 275 ng/mL Specimen Performing Laboratory [address] [address] Carcinoembryonic Antigen (CEA) (12/30/2017 3:17 PM) Component Value Ref Range CEA, SERUM 3.0 0.0 - 5.0 ng/mL Specimen Performing Laboratory [address] [address] Cytomegalovirus antibody, IgM (12/30/2017 3:16 PM) Component Value Ref Range CMV IgM Negative Specimen Performing Laboratory Blood - Arm, [address] [address] Cryptococcal antigen (12/30/2017 3:16 PM) Component Value Ref Range Cryptococcal Antigen, Serum Negative Negative, Interference Specimen Performing Laboratory Blood - Arm, [address] [address] EBV-VCA antibody, IgM (12/30/2017 3:16 PM) Component Value Ref Range EBV VCA IgM Negative Specimen Performing Laboratory Blood - Arm, [address] [address] EBV-VCA antibody, IgG (12/30/2017 3:16 PM) Component Value Ref Range EBV VCA IgG Positive Specimen Performing Laboratory Blood - Arm, [address] [address] Cytomegalovirus antibody, IgG (12/30/2017 3:16 PM) Component Value Ref Range CMV IgG Positive Specimen Performing Laboratory Blood - Arm, [address] [address] Uric acid (12/30/2017 3:16 PM) Component Value Ref Range Uric Acid 8.5 (H) 2.6 - 7.2 mg/dL Specimen Performing Laboratory Blood - Arm, [address] [address] Narrative Specimen slightly icteric Lipid panel (12/30/2017 3:16 PM) Component Value Ref Range Triglycerides 38 mg/dL Cholesterol 51 mg/dL HDL 10 mg/dL LDL Calculated 33 mg/dL Specimen Performing Laboratory Blood - Arm, [address] [address] Narrative Triglyceride Reference Range: Low Risk <150 [id number] High Risk 200-499 Very High Risk>=500 Cholesterol Reference Range: Low Risk <200 [id number] High Risk>240 HDL Cholesterol Reference Range: Low Risk >=60 High Risk <40 LDL Cholesterol Reference Range: Optimal<100 Near [id number] Very High >=190 Specimen slightly icteric Sodium, random urine (12/30/2017 5:14 AM) Component Value Ref Range Sodium Urine <20 meq/L Specimen Performing Laboratory Urine - Urine, Voided [address] [address] Narrative Reference Range: No Normals Protein, random urine (12/30/2017 5:14 AM) Component Value Ref Range Protein, Urine <7 0 - 14 mg/dL Specimen Performing Laboratory Urine - Urine, Voided [address] [address] Creatinine, random urine (12/30/2017 5:14 AM) Component Value Ref Range Creatinine, Ur 60.6 mg/dL Specimen Performing Laboratory Urine - Urine, Voided [address] [address] Narrative Reference Range: No Normals Urinalysis w/Microscopic (12/30/2017 5:14 AM)Only the most recent of2 resultswithin the time period is included. Component Value Ref Range Color, UA Yellow Clarity, UA Clear Specific [place], UA 1.008 1.001 - 1.035 pH, UA [...] Specimen Performing Laboratory Urine - Urine, Voided [address] [address] Ethanol (12/29/2017 12:33 PM) Component Value Ref Range Ethanol Lvl <10 <=10 mg/dL Specimen Performing Laboratory Blood - Arm, Right [address] [address] [address] abdomen/pelvis without iv contrast (12/28/2017 9:28 PM) Specimen Performing Laboratory [employer] Narrative FINAL REPORT EXAM: CT of the [...] MD Report Verified Date/Time:12/28/2017 22:20:52 Reading Location: [address] Transitional Reading Room Procedure Note Interface, External Ris In - 12/28/2017 10:23 PM MICA MINER FINAL REPORT EXAM: CT of the abdomen [...] Report Verified Date/Time: 12/28/2017 22:20:52 Reading Location: [facility] C0[facility] Transitional Reading Room Alpha fetoprotein (AFP), tumor marker (12/28/2017 4:47 AM)Only the most recent of2 resultswithin the time period is included. Component Value Ref Range Alpha-Fetoprotein 4.1 <10.0 ng/mL Specimen Performing Laboratory Blood - Arm, Left [address] [address] Body fluid culture + gram stain (12/27/2017 7:03 PM)Only the most recent of2 resultswithin the time period is included. Component Value Ref Range Result No growth Gram Stain Result No WBCs Gram Stain Result No organisms seen Specimen Performing Laboratory Body Fluid - Ascites [address] [address] Albumin, body fluid (12/27/2017 7:03 PM) Component Value Ref Range Albumin, Fluid 0.4 gm/dL Specimen Performing Laboratory Body Fluid - Ascites [address] [address] Narrative Reference Range:No Normals Assay performance has [...] Specimen Performing Laboratory Blood - Arm, Left [address] [address] Narrative Specimen slightly icteric RHYTHM STRIP - [...] Performing Laboratory Urine - Urine, Clean Catch [address] [address] Narrative [employer]UT[employer] CONC. Cocaine 300 ng/mL Nnmkzpxfdbd36 ng/mL Afswtmrwjwxpaq665 ng/mL Barbiturate 200 ng/mL Nkjjftjjyjfrp26 ng/mL Yfxruu801 ng/mL Methadone 300 ng/mL Amphetamine/ 1000 ng/mL Methamphetamine Oxycodone 300 ng/mL This assay provides an unconfirmed qualitative test result for the clinical management of patients in emergency situations. Chain of custody not maintained. Some vavv-mvo-sjyjofd medications, as well as adulterants, may cause inaccurate results. Clinical correlation should be applied. A more comprehensive drug screen or confirmation of a detected drug may be performed upon request. MR abdomen without & with IV contrast (09/05/2017 12:11 PM) Specimen Performing Laboratory [employer] Narrative FINAL REPORT MRI of the abdomen [...] MD Report Verified Date/Time:09/05/2017 13:52:35 Reading Location: [facility] C013Y CT Body Reading Room Procedure Note Interface, External Ris In - 09/05/2017 1:54 PM MICA MINER FINAL REPORT MRI of the abdomen with [...] Report Verified Date/Time: 09/05/2017 13:52:35 Reading Location: [facility] C013Y CT Body Reading Room Blood culture #2 (09/03/2017 10:15 PM)Only the most recent of2 resultswithin the time period is included. Component Value Ref Range Result No growth in 5 days Specimen Performing Laboratory Blood - Arm, Left [address] [address] Gamma Glutamyl Transferase (GGT) (07/24/2017 2:42 PM) Component Value Ref Range GGT 17 9 - 64 U/L Specimen Performing Laboratory Blood [address] [address] Narrative Specimen moderately icteric after 05/03/2017
--- OUTSIDE RECORDS SUMMARY | 2018-05-04 21:29 | XMS REPORT ---
:1965 Author Organization [facility] Address [address] [place] [address] Dr. Lant[address]ua [address] [place] [id number] Care Team Providers Name Role Phone BRANDO [...] 0.6-1.3 TESTED AT [facility] 6720 ffcs=[id number]) [facility] [address] POC-EGFR (BEAKER) (test ysdi=8506) 35 mL/min/1.73M2 PET/CT, LIMITED AREA [id number] 08:25:00PET/ CT ChestReason for Exam:-> Elongated nodular [...] thighsAdditional imaging: NoneSerum blood glucose: 119CPT Code: 22274 FINDINGS:Head and Neck: There is no trisha [...] MDReport Verified Date/Time: 03/31/2018 08:25:09 POCT- GLUCOSE [id number] 14:54:00 Test Item Value Reference Range Comments POC-GLUCOSE METER (BEAKER) 119 mg/dL 70-110 TESTED AT [facility] 6720 [facility] (test pzmx=4980) [facility] [address] COMPREHENSIVE METABOLIC [id number] 16:49:00 Test Item Value Reference Range Comments TOTAL PROTEIN (BEAKER) 6.2 gm/dL 6.0-8.3 (test gclf=221) ALBUMIN (BEAKER) (test 3.4 g/dL 3.5-5.0 ykvu=4710) ALKALINE PHOSPHATASE 139 U/L 40-150 (BEAKER) (test rtdk=209) BILIRUBIN TOTAL (BEAKER) 4.0 mg/dL 0.2-1.2 (test thds=426) SODIUM (BEAKER) (test 129 meq/L 136-145 nbgy=710) POTASSIUM (BEAKER) (test 4.3 meq/L 3.5-5.1 srqb=418) CHLORIDE (BEAKER) (test 96 meq/L 98-107 ngpr=566) CO2 (BEAKER) (test 22 meq/L 22-29 tnlp=181) BLOOD UREA NITROGEN 28 mg/dL 7-21 (BEAKER) (test xvof=515) CREATININE (BEAKER) (test 1.51 mg/dL 0.57-1.25 smwf=146) GLUCOSE RANDOM (BEAKER) 89 mg/dL 70-105 (test eynx=083) CALCIUM (BEAKER) (test 9.5 mg/dL 8.4-10.2 etxn=968) AST (SGOT) (BEAKER) (test 26 U/L 5-34 gvkb=994) ALT (SGPT) (BEAKER) (test 11 U/L 6-55 nowh=604) EGFR (BEAKER) (test 49 mL/min/1.73 sq m ESTIMATED GFR IS NOT vwta=0323) ACCURATE CREATININE CLEARANCE IN PREDICTING GLOMERULAR FILTRATION RATE. ESTIMATED GFR IS NOT APPLICABLE FOR DIALYSIS PATIENTS. Specimen slightly ictericBILIRUBIN, [id number] 16:49:00 Test Item Value Reference Range Comments BILIRUBIN DIRECT (BEAKER) (test hscg=112) 2.8 mg/dL 0.1-0.5 PROTHROMBIN [id number] 16:36:00 Test Item Value Reference Range Comments PROTIME (BEAKER) (test edmu=540) 19.0 seconds 11.7-14.7 INR (BEAKER) (test bhoa=447) 1.6 <=5.9 RECOMMENDED COUMADIN/WARFARIN INR THERAPY RANGESSTANDARD DOSE: 2.0 - 3.0 Includes: PROPHYLAXIS forvenous thrombosis, systemic embolization; TREATMENT for venous thrombosis and/or pulmonary embolus.HIGH RISK: Target INR is 2.5-3.5 for patients with mechanical heart valves.CBC W/PLT COUNT & AUTO [id number] 16:27:00 Test Item Value Reference Range Comments WHITE BLOOD CELL COUNT (BEAKER) (test eabt=253) 6.0 K/ L 3.5-10.5 RED BLOOD CELL COUNT (BEAKER) (test dotc=523) 2.74 M/ L 4.63-6.08 HEMOGLOBIN (BEAKER) (test ympl=580) 9.3 GM/DL 13.7-17.5 HEMATOCRIT (BEAKER) (test bujm=720) 27.6 % 40.1-51.0 MEAN CORPUSCULAR VOLUME (BEAKER) (test gfmv=550) 100.7 fL 79.0-92.2 MEAN CORPUSCULAR HEMOGLOBIN (BEAKER) (test 33.9 pg 25.7-32.2 cczl=568) MEAN CORPUSCULAR HEMOGLOBIN CONC (BEAKER) (test 33.7 GM/DL 32.3-36.5 bjbn=475) RED CELL DISTRIBUTION WIDTH (BEAKER) (test 14.9 % 11.6-14.4 pffi=453) PLATELET COUNT (BEAKER) (test awou=721) 96 K/CU MM 150-450 MEAN PLATELET VOLUME (BEAKER) (test tfzb=401) 9.4 fL 9.4-12.4 NUCLEATED RED BLOOD CELLS (BEAKER) (test 0 /100 WBC 0-0 foyc=452) NEUTROPHILS RELATIVE PERCENT (BEAKER) (test 64 % guyb=580) LYMPHOCYTES RELATIVE PERCENT (BEAKER) (test 11 % botu=500) MONOCYTES RELATIVE PERCENT (BEAKER) (test 16 % fsyt=722) EOSINOPHILS RELATIVE PERCENT (BEAKER) (test 7 % jytp=802) BASOPHILS RELATIVE PERCENT (BEAKER) (test 1 % nuua=698) NEUTROPHILS ABSOLUTE COUNT (BEAKER) (test 3.83 K/ L 1.78-5.38 dvgx=862) LYMPHOCYTES ABSOLUTE COUNT (BEAKER) (test 0.66 K/ L 1.32-3.57 mhnf=298) MONOCYTES ABSOLUTE COUNT (BEAKER) (test kxrx=528) 0.95 K/ L 0.30-0.82 EOSINOPHILS ABSOLUTE COUNT (BEAKER) (test 0.41 K/ L 0.04-0.54 htue=525) BASOPHILS ABSOLUTE COUNT (BEAKER) (test cykh=832) 0.03 K/ L 0.01-0.08 IMMATURE GRANULOCYTES-RELATIVE PERCENT (BEAKER) 2 % 0-1 (test blbh=5073) BASIC METABOLIC [id number] 08:26:00 Test Item Value Reference Range Comments SODIUM (BEAKER) (test 127 meq/L 136-145 sogr=603) POTASSIUM (BEAKER) (test 4.3 meq/L 3.5-5.1 fssr=769) CHLORIDE (BEAKER) (test 96 meq/L 98-107 ctdw=972) CO2 (BEAKER) (test 23 meq/L 22-29 gfds=748) BLOOD UREA NITROGEN 25 mg/dL 7-21 (BEAKER) (test ypme=157) CREATININE (BEAKER) (test 1.46 mg/dL 0.57-1.25 fbsq=154) GLUCOSE RANDOM (BEAKER) 130 mg/dL 70-105 (test fpvj=392) CALCIUM (BEAKER) (test 9.1 mg/dL 8.4-10.2 vjoo=818) EGFR (BEAKER) (test 51 mL/min/1.73 sq m ESTIMATED GFR IS NOT btnj=9997) ACCURATE CREATININE CLEARANCE IN PREDICTING GLOMERULAR FILTRATION RATE. ESTIMATED GFR IS NOT APPLICABLE FOR DIALYSIS PATIENTS. Specimen slightly ictericCBC (HEMOGRAM ONLY)2018-02-23 08:06:00 Test Item Value Reference Range Comments WHITE BLOOD CELL COUNT (BEAKER) (test xkok=497) 5.4 K/ L 3.5-10.5 RED BLOOD CELL COUNT (BEAKER) (test admz=119) 2.64 M/ L 4.63-6.08 HEMOGLOBIN (BEAKER) (test eqqb=415) 8.8 GM/DL 13.7-17.5 HEMATOCRIT (BEAKER) (test ttkq=171) 26.2 % 40.1-51.0 MEAN CORPUSCULAR VOLUME (BEAKER) (test fkzr=797) 99.2 fL 79.0-92.2 MEAN CORPUSCULAR HEMOGLOBIN (BEAKER) (test 33.3 pg 25.7-32.2 ldjd=344) MEAN CORPUSCULAR HEMOGLOBIN CONC (BEAKER) (test 33.6 GM/DL 32.3-36.5 zxlh=815) RED CELL DISTRIBUTION WIDTH (BEAKER) (test 16.2 % 11.6-14.4 ssyt=993) PLATELET COUNT (BEAKER) (test ldwz=533) 100 K/CU MM 150-450 MEAN PLATELET VOLUME (BEAKER) (test rmyd=348) 8.7 fL 9.4-12.4 NUCLEATED RED BLOOD CELLS (BEAKER) (test 0 /100 WBC 0-0 euer=383) COMPREHENSIVE METABOLIC [id number] 15:06:00 Test Item Value Reference Range Comments TOTAL PROTEIN (BEAKER) 6.5 gm/dL 6.0-8.3 (test agjk=829) ALBUMIN (BEAKER) (test 3.7 g/dL 3.5-5.0 amdy=6048) ALKALINE PHOSPHATASE 135 U/L 40-150 (BEAKER) (test cecj=082) BILIRUBIN TOTAL (BEAKER) 4.5 mg/dL 0.2-1.2 (test iqer=908) SODIUM (BEAKER) (test 131 meq/L 136-145 yvjf=244) POTASSIUM (BEAKER) (test 5.8 meq/L 3.5-5.1 ghug=950) CHLORIDE (BEAKER) (test 103 meq/L 98-107 gqde=222) CO2 (BEAKER) (test 24 meq/L 22-29 kzds=742) BLOOD UREA NITROGEN 27 mg/dL 7-21 (BEAKER) (test ipkg=202) CREATININE (BEAKER) (test 1.17 mg/dL 0.57-1.25 wzle=512) GLUCOSE RANDOM (BEAKER) 111 mg/dL 70-105 (test xswn=134) CALCIUM (BEAKER) (test 11.0 mg/dL 8.4-10.2 lwgt=670) AST (SGOT) (BEAKER) (test 28 U/L 5-34 swau=676) ALT (SGPT) (BEAKER) (test 19 U/L 6-55 yqdw=254) EGFR (BEAKER) (test 65 mL/min/1.73 sq m ESTIMATED GFR IS NOT hpvm=8226) ACCURATE CREATININE CLEARANCE IN PREDICTING GLOMERULAR FILTRATION RATE. ESTIMATED GFR IS NOT APPLICABLE FOR DIALYSIS PATIENTS. Specimen slightly ictericBILIRUBIN, [id number] 15:06:00 Test Item Value Reference Range Comments BILIRUBIN DIRECT (BEAKER) (test tbpj=710) 3.0 mg/dL 0.1-0.5 PROTHROMBIN [id number] 14:42:00 Test Item Value Reference Range Comments PROTIME (BEAKER) (test yosn=014) 19.1 seconds 11.7-14.7 INR (BEAKER) (test tlcj=262) 1.6 <=5.9 RECOMMENDED COUMADIN/WARFARIN INR THERAPY RANGESSTANDARD DOSE: 2.0 - 3.0 Includes: PROPHYLAXIS forvenous thrombosis, systemic embolization; TREATMENT for venous thrombosis and/or pulmonary embolus.HIGH RISK: Target INR is 2.5-3.5 for patients with mechanical heart valves.CBC W/PLT COUNT & AUTO [id number] 14:36:00 Test Item Value Reference Range Comments WHITE BLOOD CELL COUNT (BEAKER) (test mncs=546) 5.5 K/ L 3.5-10.5 RED BLOOD CELL COUNT (BEAKER) (test nnsw=264) 2.84 M/ L 4.63-6.08 HEMOGLOBIN (BEAKER) (test kkxk=106) 9.5 GM/DL 13.7-17.5 HEMATOCRIT (BEAKER) (test jytc=880) 28.8 % 40.1-51.0 MEAN CORPUSCULAR VOLUME (BEAKER) (test nmdw=237) 101.4 fL 79.0-92.2 MEAN CORPUSCULAR HEMOGLOBIN (BEAKER) (test 33.5 pg 25.7-32.2 bmem=862) MEAN CORPUSCULAR HEMOGLOBIN CONC (BEAKER) (test 33.0 GM/DL 32.3-36.5 zuvi=245) RED CELL DISTRIBUTION WIDTH (BEAKER) (test 19.4 % 11.6-14.4 iyoe=898) PLATELET COUNT (BEAKER) (test cdwr=922) 65 K/CU MM 150-450 MEAN PLATELET VOLUME (BEAKER) (test ydox=381) 8.8 fL 9.4-12.4 NUCLEATED RED BLOOD CELLS (BEAKER) (test 0 /100 WBC 0-0 qqka=106) NEUTROPHILS RELATIVE PERCENT (BEAKER) (test 66 % khnz=021) LYMPHOCYTES RELATIVE PERCENT (BEAKER) (test 14 % sqfu=576) MONOCYTES RELATIVE PERCENT (BEAKER) (test 15 % exnn=510) EOSINOPHILS RELATIVE PERCENT (BEAKER) (test 4 % xwsy=264) BASOPHILS RELATIVE PERCENT (BEAKER) (test 0 % duhx=532) NEUTROPHILS ABSOLUTE COUNT (BEAKER) (test 3.58 K/ L 1.78-5.38 vrkx=318) LYMPHOCYTES ABSOLUTE COUNT (BEAKER) (test 0.78 K/ L 1.32-3.57 zdqk=947) MONOCYTES ABSOLUTE COUNT (BEAKER) (test ewzs=337) 0.79 K/ L 0.30-0.82 EOSINOPHILS ABSOLUTE COUNT (BEAKER) (test 0.23 K/ L 0.04-0.54 jixq=765) BASOPHILS ABSOLUTE COUNT (BEAKER) (test ixym=255) 0.02 K/ L 0.01-0.08 IMMATURE GRANULOCYTES-RELATIVE PERCENT (BEAKER) 1 % 0-1 (test zwjv=1738) RAD, KNEE, COMPLETE (4 VIEWS), [id number] 11:15:00Reason for exam:->FALL , PAINFINAL REPORT Bilateral [...] Quezada Verified Date/Time: 01/06/2018 11:15:08 Reading Location: [facility] Radiology Reading Room RAD, KNEE, COMPLETE (4 VIEWS), [id number] 11:15:00Reason for exam:->FALL, PAINFINAL REPORT Bilateral knee [...] MDRstanort Verified Date/Time: 01/06/2018 11:15:08 Reading Location: [facility] Radiology Reading Room CBC W/PLT COUNT & AUTO [id number] 10: 58:00 Test Item Value Reference Range Comments WHITE BLOOD CELL COUNT (BEAKER) (test blfa=084) 2.9 K/ L 3.5-10.5 RED BLOOD CELL COUNT (BEAKER) (test bpqp=193) 2.27 M/ L 4.63-6.08 HEMOGLOBIN (BEAKER) (test ejkm=059) 7.1 GM/DL 13.7-17.5 HEMATOCRIT (BEAKER) (test wynt=044) 21.0 % 40.1-51.0 MEAN CORPUSCULAR VOLUME (BEAKER) (test vttv=365) 92.5 fL 79.0-92.2 MEAN CORPUSCULAR HEMOGLOBIN (BEAKER) (test 31.3 pg 25.7-32.2 dnsx=793) MEAN CORPUSCULAR HEMOGLOBIN CONC (BEAKER) (test 33.8 GM/DL 32.3-36.5 mcmy=592) RED CELL DISTRIBUTION WIDTH (BEAKER) (test 17.2 % 11.6-14.4 ibxo=610) PLATELET COUNT (BEAKER) (test crza=711) 42 K/CU MM 150-450 MEAN PLATELET VOLUME (BEAKER) (test qpku=014) 10.1 fL 9.4-12.4 NUCLEATED RED BLOOD CELLS (BEAKER) (test 0 /100 WBC 0-0 prdq=323) NEUTROPHILS RELATIVE PERCENT (BEAKER) (test 77 % zunv=370) LYMPHOCYTES RELATIVE PERCENT (BEAKER) (test 12 % bilb=626) MONOCYTES RELATIVE PERCENT (BEAKER) (test 10 % mhil=823) EOSINOPHILS RELATIVE PERCENT (BEAKER) (test 1 % ssvl=734) BASOPHILS RELATIVE PERCENT (BEAKER) (test 0 % fote=312) NEUTROPHILS ABSOLUTE COUNT (BEAKER) (test 2.21 K/ L 1.78-5.38 ycuf=831) LYMPHOCYTES ABSOLUTE COUNT (BEAKER) (test 0.33 K/ L 1.32-3.57 dsdx=099) MONOCYTES ABSOLUTE COUNT (BEAKER) (test zoyy=728) 0.30 K/ L 0.30-0.82 EOSINOPHILS ABSOLUTE COUNT (BEAKER) (test 0.03 K/ L 0.04-0.54 oduy=081) BASOPHILS ABSOLUTE COUNT (BEAKER) (test nrto=646) 0.00 K/ L 0.01-0.08 IMMATURE GRANULOCYTES-RELATIVE PERCENT (BEAKER) 0 % 0-1 (test knxl=3154) [id number] 06:06:00 Test Item Value Reference Range Comments PHOSPHORUS (BEAKER) (test bwdk=814) 3.6 mg/dL 2.3-4.7 [id number] 06:06:00 Test Item Value Reference Range Comments MAGNESIUM (BEAKER) (test igzh=608) 2.0 mg/dL 1.6-2.6 BASIC METABOLIC [id number] 06:06:00 Test Item Value Reference Range Comments SODIUM (BEAKER) (test 130 meq/L 136-145 eipn=736) POTASSIUM (BEAKER) (test 4.4 meq/L 3.5-5.1 lewn=293) CHLORIDE (BEAKER) (test 100 meq/L 98-107 urlk=881) CO2 (BEAKER) (test 23 meq/L 22-29 gkab=088) BLOOD UREA NITROGEN 21 mg/dL 7-21 (BEAKER) (test jtvt=779) CREATININE (BEAKER) (test 1.11 mg/dL 0.57-1.25 grfc=676) GLUCOSE RANDOM (BEAKER) 120 mg/dL 70-105 (test ocfj=404) CALCIUM (BEAKER) (test 9.4 mg/dL 8.4-10.2 fxhg=502) EGFR (BEAKER) (test 70 mL/min/1.73 sq m ESTIMATED GFR IS NOT udky=6644) ACCURATE CREATININE CLEARANCE IN PREDICTING GLOMERULAR FILTRATION RATE. ESTIMATED GFR IS NOT APPLICABLE FOR DIALYSIS PATIENTS. Specimen slightly ictericPROTHROMBIN [id number] 06:02:00 Test Item Value Reference Range Comments PROTIME (BEAKER) (test hdns=676) 22.9 seconds 11.7-14.7 INR (BEAKER) (test xypz=539) 2.0 <=5.9 RECOMMENDED COUMADIN/WARFARIN INR THERAPY RANGESSTANDARD DOSE: 2.0 - 3.0 Includes: PROPHYLAXIS forvenous thrombosis, systemic embolization; TREATMENT for venous thrombosis and/or pulmonary embolus.HIGH RISK: Target INR is 2.5-3.5 for patients with mechanical heart valves.CALCIUM, [id number] 06:01:00 Test Item Value Reference Range Comments CALCIUM IONIZED (BEAKER) (test geml=600) 1.11 mmol/L 1.12-1.27 PH, BLOOD (BEAKER) (test yqap=7441) 7.53 CORTISOL,60 [id number] 23:20:00 Test Item Value Reference Range Comments CORTISOL BASELINE NETWORKED (BEAKER) (test 4.8 mcg/dL fwrq=6006) CORTISOL 30 MINUTE NETWORKED (BEAKER) (test 9.2 mcg/dL pauj=0060) CORTISOL, 60 MINUTE (BEAKER) (test fdjm=2071) 12.6 ug/dL ACTH STIMULATION TEST INTERPRETATION GUIDELINES(Synonyms: [...] study by Mindy et al (NEVAEH 2000,283( 8):4266-45), the ACTH Stimulation Test provides important prognostic [...] serum cortisollevel 60 minutes after cosyntropin administration.CORTISOL,30 [id number] 22:35:00 Test Item Value Reference Range Comments CORTISOL BASELINE NETWORKED (BEAKER) (test 4.8 mcg/dL eydk=9620) CORTISOL, 30 MINUTE (BEAKER) (test rgpq=5982) 9.2 ug/dL ACTH STIMULATION TEST INTERPRETATION GUIDELINES(Synonyms: [...] study by Mindy et al (NEVAEH 2000,283( 8):0044-49), the ACTH Stimulation Test provides important prognostic [...] Draw serum cortisollevel 60 minutes after cosyntropin administration.CORTISOL,[id number] 22:35:00 Test Item Value Reference Range Comments CORTISOL, BASELINE (TIMOTHYAKER) (test xsrw=1700) 4.8 ug/dL ACTH STIMULATION TEST INTERPRETATION GUIDELINES(Synonyms: [...] serum cortisollevel 60 minutes after cosyntropin administration.U/S, [id number] 17:54:00Reason for exam:->therapeuticFINAL REPORT History: Ascites. PROCEDURE: Following informed written consent,the patient's right lower quadrant was prepped and draped in the usual sterile manner. 2% lidocaine was given locally for anesthesia. No conscious sedation was administered. Using ultrasound guidance, a 5 Setswana one-step catheter was advanced percutaneously into the [...] Verified Date/Time: 01/05/2018 17: 54:16 Reading Location: [address] Ultrasound Reading Room [id number] 11:19:00 Test Item Value Reference Range Comments CORTISOL, TOTAL (BEAKER) (test qghs=5397) 2.7 ug/dL 3.7-19.4 [id number] 10:21:00 Test Item Value Reference Range Comments PHOSPHORUS (BEAKER) (test rrvc=586) 2.8 mg/dL 2.3-4.7 [id number] 10:21:00 Test Item Value Reference Range Comments MAGNESIUM (BEAKER) (test nnmu=032) 1.9 mg/dL 1.6-2.6 BASIC METABOLIC [id number] 10:21:00 Test Item Value Reference Range Comments SODIUM (BEAKER) (test 127 meq/L 136-145 psoc=539) POTASSIUM (BEAKER) (test 5.0 meq/L 3.5-5.1 dvdq=380) CHLORIDE (BEAKER) (test 100 meq/L 98-107 wclo=872) CO2 (BEAKER) (test 22 meq/L 22-29 zavb=547) BLOOD UREA NITROGEN 25 mg/dL 7-21 (BEAKER) (test stmq=922) CREATININE (BEAKER) (test 1.17 mg/dL 0.57-1.25 obhc=335) GLUCOSE RANDOM (BEAKER) 84 mg/dL 70-105 (test evnk=630) CALCIUM (BEAKER) (test 8.7 mg/dL 8.4-10.2 ddhi=648) EGFR (BEAKER) (test 65 mL/min/1.73 sq m ESTIMATED GFR IS NOT gvpj=7858) ACCURATE CREATININE CLEARANCE IN PREDICTING GLOMERULAR FILTRATION RATE. ESTIMATED GFR IS NOT APPLICABLE FOR DIALYSIS PATIENTS. Specimen slightly ictericCBC W/PLT COUNT & AUTO [id number] 08:42 :00 Test Item Value Reference Range Comments WHITE BLOOD CELL COUNT (BEAKER) (test vbro=434) 2.7 K/ L 3.5-10.5 RED BLOOD CELL COUNT (BEAKER) (test iwdt=095) 2.33 M/ L 4.63-6.08 HEMOGLOBIN (BEAKER) (test dmgw=143) 7.3 GM/DL 13.7-17.5 HEMATOCRIT (BEAKER) (test nptn=314) 22.0 % 40.1-51.0 MEAN CORPUSCULAR VOLUME (BEAKER) (test mrxj=623) 94.4 fL 79.0-92.2 MEAN CORPUSCULAR HEMOGLOBIN (BEAKER) (test 31.3 pg 25.7-32.2 xpmn=222) MEAN CORPUSCULAR HEMOGLOBIN CONC (BEAKER) (test 33.2 GM/DL 32.3-36.5 yibz=266) RED CELL DISTRIBUTION WIDTH (BEAKER) (test 17.2 % 11.6-14.4 vvim=658) PLATELET COUNT (BEAKER) (test qxxs=327) 45 K/CU MM 150-450 MEAN PLATELET VOLUME (BEAKER) (test lqpy=704) 9.3 fL 9.4-12.4 NUCLEATED RED BLOOD CELLS (BEAKER) (test 0 /100 WBC 0-0 pjmy=015) NEUTROPHILS RELATIVE PERCENT (BEAKER) (test 60 % uzmc=602) LYMPHOCYTES RELATIVE PERCENT (BEAKER) (test 17 % swei=971) MONOCYTES RELATIVE PERCENT (BEAKER) (test 16 % elvs=474) EOSINOPHILS RELATIVE PERCENT (BEAKER) (test 6 % cxxt=132) BASOPHILS RELATIVE PERCENT (BEAKER) (test 0 % rnos=139) NEUTROPHILS ABSOLUTE COUNT (BEAKER) (test 1.63 K/ L 1.78-5.38 cbmj=231) LYMPHOCYTES ABSOLUTE COUNT (BEAKER) (test 0.45 K/ L 1.32-3.57 szsr=018) MONOCYTES ABSOLUTE COUNT (BEAKER) (test vdyo=433) 0.44 K/ L 0.30-0.82 EOSINOPHILS ABSOLUTE COUNT (BEAKER) (test 0.16 K/ L 0.04-0.54 irdd=551) BASOPHILS ABSOLUTE COUNT (BEAKER) (test diql=549) 0.01 K/ L 0.01-0.08 IMMATURE GRANULOCYTES-RELATIVE PERCENT (BEAKER) 1 % 0-1 (test fuxg=5076) (MANUAL DIFFERENTIAL)2018-01-05 08:42:00 Test Item Value Reference Range Comments TOTAL COUNTED (BEAKER) (test wbnu=0166) WBC MORPHOLOGY (BEAKER) (test ftoq=137) Normal PLT MORPHOLOGY (BEAKER) (test pqlm=946) Normal ANISOCYTOSIS (BEAKER) (test rlsg=551) 1+ few CALCIUM, [id number] 08:10:00 Test Item Value Reference Range Comments CALCIUM IONIZED (BEAKER) (test dcno=763) 1.08 mmol/L 1.12-1.27 PH, BLOOD (BEAKER) (test exml=5521) 7.44 PROTHROMBIN [id number] 07:12:00 Test Item Value Reference Range Comments PROTIME (BEAKER) (test eueo=325) 22.4 seconds 11.7-14.7 INR (BEAKER) (test joik=103) 2.0 <=5.9 RECOMMENDED COUMADIN/WARFARIN INR THERAPY RANGESSTANDARD DOSE: 2.0 - 3.0 Includes: PROPHYLAXIS forvenous thrombosis, systemic embolization; TREATMENT for venous thrombosis and/or pulmonary embolus.HIGH RISK: Target INR is 2.5-3.5 for patients with mechanical heart valves.[id number] 17:54:00 Test Item Value Reference Range Comments SODIUM (BEAKER) (test bgxz=339) 129 meq/L 136-145 POTASSIUM (BEAKER) (test wuja=117) 5.5 meq/L 3.5-5.1 CHLORIDE (BEAKER) (test blex=473) 101 meq/L 98-107 CO2 (BEAKER) (test ibhz=180) 26 meq/L 22-29 Call [id number] with resultsCBC (HEMOGRAM ONLY)2018-01-04 07:16:00 Test Item Value Reference Range Comments WHITE BLOOD CELL COUNT (BEAKER) (test lewq=958) 2.9 K/ L 3.5-10.5 RED BLOOD CELL COUNT (BEAKER) (test ialt=328) 2.25 M/ L 4.63-6.08 HEMOGLOBIN (BEAKER) (test crvn=114) 7.3 GM/DL 13.7-17.5 HEMATOCRIT (BEAKER) (test mait=024) 21.3 % 40.1-51.0 MEAN CORPUSCULAR VOLUME (BEAKER) (test fkpt=539) 94.7 fL 79.0-92.2 MEAN CORPUSCULAR HEMOGLOBIN (BEAKER) (test 32.4 pg 25.7-32.2 xtwk=686) MEAN CORPUSCULAR HEMOGLOBIN CONC (BEAKER) (test 34.3 GM/DL 32.3-36.5 sqtn=940) RED CELL DISTRIBUTION WIDTH (BEAKER) (test 17.6 % 11.6-14.4 divw=773) PLATELET COUNT (BEAKER) (test khkg=359) 59 K/CU MM 150-450 MEAN PLATELET VOLUME (BEAKER) (test akmd=811) 11.3 fL 9.4-12.4 NUCLEATED RED BLOOD CELLS (BEAKER) (test 0 /100 WBC 0-0 wxei=745) COMPREHENSIVE METABOLIC [id number] 06:49:00 Test Item Value Reference Range Comments TOTAL PROTEIN (BEAKER) 5.3 gm/dL 6.0-8.3 Specimen slightly (test cijz=797) hemolyzed ALBUMIN (BEAKER) (test 3.3 g/dL 3.5-5.0 Specimen slightly goxb=0035) hemolyzed ALKALINE PHOSPHATASE 81 U/L 40-150 (BEAKER) (test mxww=840) BILIRUBIN TOTAL (BEAKER) 2.4 mg/dL 0.2-1.2 Specimen slightly (test bmhs=699) hemolyzed SODIUM (BEAKER) (test 127 meq/L 136-145 foyg=963) POTASSIUM (BEAKER) (test 5.7 meq/L 3.5-5.1 Specimen slightly htbx=870) hemolyzed CHLORIDE (BEAKER) (test 100 meq/L 98-107 dcem=879) CO2 (BEAKER) (test 20 meq/L 22-29 lwdv=165) BLOOD UREA NITROGEN 22 mg/dL 7-21 (BEAKER) (test cgbj=201) CREATININE (BEAKER) (test 1.14 mg/dL 0.57-1.25 Specimen slightly taxl=836) hemolyzed GLUCOSE RANDOM (BEAKER) 96 mg/dL 70-105 (test hhpz=512) CALCIUM (BEAKER) (test 8.9 mg/dL 8.4-10.2 lgsf=050) AST (SGOT) (BEAKER) (test 30 U/L 5-34 Specimen slightly xrgx=711) hemolyzed ALT (SGPT) (BEAKER) (test 8 U/L 6-55 Specimen slightly ijwr=361) hemolyzed EGFR (BEAKER) (test 67 mL/min/1.73 sq m ESTIMATED GFR IS NOT hcli=4498) ACCURATE CREATININE CLEARANCE IN PREDICTING GLOMERULAR FILTRATION RATE. ESTIMATED GFR IS NOT APPLICABLE FOR DIALYSIS PATIENTS. Specimen slightly ictericPROTHROMBIN [id number] 06:15:00 Test Item Value Reference Range Comments PROTIME (BEAKER) (test yjza=249) 22.7 seconds 11.7-14.7 INR (BEAKER) (test guqw=141) 2.0 <=5.9 RECOMMENDED COUMADIN/WARFARIN INR THERAPY RANGESSTANDARD DOSE: 2.0 - 3.0 Includes: PROPHYLAXIS forvenous thrombosis, systemic embolization; TREATMENT for venous thrombosis and/or pulmonary embolus.HIGH RISK: Target INR is 2.5-3.5 for patients with mechanical heart valves.VITAMIN B12 AND [id number] 16:39 :00 Test Item Value Reference Range Comments VITAMIN B12 (BEAKER) (test cszp=523) 829 pg/mL 213-816 FOLATE (BEAKER) (test clvg=391) 18.9 ng/mL >=7.0 CALCIUM, [id number] 07:14:00 Test Item Value Reference Range Comments CALCIUM IONIZED (BEAKER) (test jvlm=925) 1.08 mmol/L 1.12-1.27 PH, BLOOD (BEAKER) (test ceyu=1639) 7.41 COMPREHENSIVE METABOLIC [id number] 07:00:00 Test Item Value Reference Range Comments TOTAL PROTEIN (BEAKER) 5.0 gm/dL 6.0-8.3 (test hgzp=803) ALBUMIN (BEAKER) (test 3.1 g/dL 3.5-5.0 qgxz=0826) ALKALINE PHOSPHATASE 65 U/L 40-150 (BEAKER) (test efog=935) BILIRUBIN TOTAL (BEAKER) 2.5 mg/dL 0.2-1.2 (test tumg=457) SODIUM (BEAKER) (test 127 meq/L 136-145 mrwq=392) POTASSIUM (BEAKER) (test 4.7 meq/L 3.5-5.1 rfen=540) CHLORIDE (BEAKER) (test 99 meq/L 98-107 rxny=808) CO2 (BEAKER) (test 23 meq/L 22-29 stmg=882) BLOOD UREA NITROGEN 21 mg/dL 7-21 (BEAKER) (test wbps=387) CREATININE (BEAKER) (test 1.13 mg/dL 0.57-1.25 cwfx=243) GLUCOSE RANDOM (BEAKER) 92 mg/dL 70-105 (test qccs=856) CALCIUM (BEAKER) (test 8.9 mg/dL 8.4-10.2 klwl=994) AST (SGOT) (BEAKER) (test 18 U/L 5-34 yxuo=600) ALT (SGPT) (BEAKER) (test 8 U/L 6-55 ahjd=202) EGFR (BEAKER) (test 68 mL/min/1.73 sq m ESTIMATED GFR IS NOT tzek=0703) ACCURATE CREATININE CLEARANCE IN PREDICTING GLOMERULAR FILTRATION RATE. ESTIMATED GFR IS NOT APPLICABLE FOR DIALYSIS PATIENTS. [id number] 06:37:00 Test Item Value Reference Range Comments PHOSPHORUS (BEAKER) (test jdfa=069) 3.2 mg/dL 2.3-4.7 [id number] 06:37:00 Test Item Value Reference Range Comments MAGNESIUM (BEAKER) (test pert=703) 1.9 mg/dL 1.6-2.6 CBC (HEMOGRAM ONLY)2018-01-03 06:25:00 Test Item Value Reference Range Comments WHITE BLOOD CELL COUNT (BEAKER) (test kica=258) 3.1 K/ L 3.5-10.5 RED BLOOD CELL COUNT (BEAKER) (test fywh=078) 2.31 M/ L 4.63-6.08 HEMOGLOBIN (BEAKER) (test vsrs=854) 7.4 GM/DL 13.7-17.5 HEMATOCRIT (BEAKER) (test jpsr=704) 21.6 % 40.1-51.0 MEAN CORPUSCULAR VOLUME (BEAKER) (test lhrx=460) 93.5 fL 79.0-92.2 MEAN CORPUSCULAR HEMOGLOBIN (BEAKER) (test 32.0 pg 25.7-32.2 yvmp=544) MEAN CORPUSCULAR HEMOGLOBIN CONC (BEAKER) (test 34.3 GM/DL 32.3-36.5 bxrd=754) RED CELL DISTRIBUTION WIDTH (BEAKER) (test 17.4 % 11.6-14.4 whwl=246) PLATELET COUNT (BEAKER) (test gopb=711) 50 K/CU MM 150-450 MEAN PLATELET VOLUME (BEAKER) (test ujcj=318) 10.5 fL 9.4-12.4 NUCLEATED RED BLOOD CELLS (BEAKER) (test 0 /100 WBC 0-0 afxx=839) PROTHROMBIN [id number] 06:09:00 Test Item Value Reference Range Comments PROTIME (BEAKER) (test utuh=697) 22.2 seconds 11.7-14.7 INR (BEAKER) (test nvow=526) 2.0 <=5.9 RECOMMENDED COUMADIN/WARFARIN INR THERAPY RANGESSTANDARD DOSE: 2.0 - 3.0 Includes: PROPHYLAXIS forvenous thrombosis, systemic embolization; TREATMENT for venous thrombosis and/or pulmonary embolus.HIGH RISK: Target INR is 2.5-3.5 for patients with mechanical heart valves.[id number] 07:54:00 Test Item Value Reference Range Comments PHOSPHORUS (BEAKER) (test shna=710) 3.2 mg/dL 2.3-4.7 [id number] 07:54:00 Test Item Value Reference Range Comments MAGNESIUM (BEAKER) (test wqwb=627) 1.4 mg/dL 1.6-2.6 COMPREHENSIVE METABOLIC [id number] 07:54:00 Test Item Value Reference Range Comments TOTAL PROTEIN (BEAKER) 5.3 gm/dL 6.0-8.3 (test xlvo=475) ALBUMIN (BEAKER) (test 3.4 g/dL 3.5-5.0 wiqu=0207) ALKALINE PHOSPHATASE 55 U/L 40-150 (BEAKER) (test tjft=638) BILIRUBIN TOTAL (BEAKER) 3.9 mg/dL 0.2-1.2 (test prpv=273) SODIUM (BEAKER) (test 131 meq/L 136-145 xuwa=730) POTASSIUM (BEAKER) (test 4.3 meq/L 3.5-5.1 bfyj=260) CHLORIDE (BEAKER) (test 101 meq/L 98-107 afac=565) CO2 (BEAKER) (test 23 meq/L 22-29 xtiq=419) BLOOD UREA NITROGEN 19 mg/dL 7-21 (BEAKER) (test sabi=543) CREATININE (BEAKER) (test 0.97 mg/dL 0.57-1.25 acbn=620) GLUCOSE RANDOM (BEAKER) 80 mg/dL 70-105 (test lkti=724) CALCIUM (BEAKER) (test 9.4 mg/dL 8.4-10.2 kxag=017) AST (SGOT) (BEAKER) (test 17 U/L 5-34 qyhc=065) ALT (SGPT) (BEAKER) (test 8 U/L 6-55 trts=893) EGFR (BEAKER) (test 81 mL/min/1.73 sq m ESTIMATED GFR IS NOT ahtf=9588) ACCURATE CREATININE CLEARANCE IN PREDICTING GLOMERULAR FILTRATION RATE. ESTIMATED GFR IS NOT APPLICABLE FOR DIALYSIS PATIENTS. Specimen slightly ictericCBC W/PLT COUNT & AUTO [id number] 07:14 :00 Test Item Value Reference Range Comments WHITE BLOOD CELL COUNT (BEAKER) (test vruo=824) 2.9 K/ L 3.5-10.5 RED BLOOD CELL COUNT (BEAKER) (test lsoy=303) 2.55 M/ L 4.63-6.08 HEMOGLOBIN (BEAKER) (test zoxy=623) 8.1 GM/DL 13.7-17.5 HEMATOCRIT (BEAKER) (test jqmm=520) 23.7 % 40.1-51.0 MEAN CORPUSCULAR VOLUME (BEAKER) (test ymoa=934) 92.9 fL 79.0-92.2 MEAN CORPUSCULAR HEMOGLOBIN (BEAKER) (test 31.8 pg 25.7-32.2 dxir=716) MEAN CORPUSCULAR HEMOGLOBIN CONC (BEAKER) (test 34.2 GM/DL 32.3-36.5 ysnl=568) RED CELL DISTRIBUTION WIDTH (BEAKER) (test 17.5 % 11.6-14.4 ugfg=029) PLATELET COUNT (BEAKER) (test bcwp=286) 50 K/CU MM 150-450 MEAN PLATELET VOLUME (BEAKER) (test fsoe=903) 9.5 fL 9.4-12.4 NUCLEATED RED BLOOD CELLS (BEAKER) (test 0 /100 WBC 0-0 vvdx=970) NEUTROPHILS RELATIVE PERCENT (BEAKER) (test 57 % omjk=293) LYMPHOCYTES RELATIVE PERCENT (BEAKER) (test 17 % vdqx=339) MONOCYTES RELATIVE PERCENT (BEAKER) (test 18 % szbi=700) EOSINOPHILS RELATIVE PERCENT (BEAKER) (test 7 % zozj=457) BASOPHILS RELATIVE PERCENT (BEAKER) (test 0 % exzq=682) NEUTROPHILS ABSOLUTE COUNT (BEAKER) (test 1.65 K/ L 1.78-5.38 muin=558) LYMPHOCYTES ABSOLUTE COUNT (BEAKER) (test 0.49 K/ L 1.32-3.57 tree=661) MONOCYTES ABSOLUTE COUNT (BEAKER) (test whew=741) 0.51 K/ L 0.30-0.82 EOSINOPHILS ABSOLUTE COUNT (BEAKER) (test 0.20 K/ L 0.04-0.54 zrzg=557) BASOPHILS ABSOLUTE COUNT (BEAKER) (test buhq=171) 0.01 K/ L 0.01-0.08 IMMATURE GRANULOCYTES-RELATIVE PERCENT (BEAKER) 1 % 0-1 (test fnze=2469) (MANUAL DIFFERENTIAL)2018-01-02 07:14:00 Test Item Value Reference Range Comments TOTAL COUNTED (BEAKER) (test axav=4955) CALCIUM, [id number] 07:04:00 Test Item Value Reference Range Comments CALCIUM IONIZED (BEAKER) (test powl=462) 1.07 mmol/L 1.12-1.27 PH, BLOOD (BEAKER) (test fttf=8767) 7.49 PROTHROMBIN TIME/[id number] 06:42:00 Test Item Value Reference Range Comments PROTIME (BEAKER) (test qzsu=572) 24.6 seconds 11.7-14.7 INR (BEAKER) (test koqu=098) 2.2 <=5.9 RECOMMENDED COUMADIN/WARFARIN INR THERAPY RANGESSTANDARD DOSE: 2.0 - 3.0 Includes: PROPHYLAXIS forvenous thrombosis, systemic embolization; TREATMENT for venous thrombosis and/or pulmonary embolus.HIGH RISK: Target INR is 2.5-3.5 for patients with mechanical heart valves.CYTOMEGALOVIRUS ANTIBODY, [id number] 14:58:00 Test Item Value Reference Range Comments CYTOMEGALOVIRUS IGG ANTIBODY (BEAKER) (test Positive yxvq=186) CYTOMEGALOVIRUS ANTIBODY, [id number] 14:58:00 Test Item Value Reference Range Comments CYTOMEGALOVIRUS IGM ANTIBODY (BEAKER) (test Negative khom=493) EBV-VCA ANTIBODY, [id number] 14:58:00 Test Item Value Reference Range Comments MARCELLUS-DAVIS VCA IGG (BEAKER) (test eiuo=416) Positive EBV-VCA ANTIBODY, [id number] 14:58:00 Test Item Value Reference Range Comments MARCELLUS-DAVIS VCA IGM (BEAKER) (test tcrf=470) Negative BODY FLUID CELL COUNT WITH [id number] 14:27:00 Test Item Value Reference Range Comments APPEARANCE FLUID (BEAKER) (test jhjc=959) Slightly Hazy Clear COLOR FLUID (BEAKER) (test toan=026) Yellow Colorless, Straw RBC FLUID (BEAKER) (test ilar=078) 378 /cu mm <=1 ADJUSTED WBC FLUID (BEAKER) (test gtzu=8128) 84 /cu mm <=5 LINING CELLS (BEAKER) (test jtom=4125) 17 /cu mm <=1 NEUTROPHILS FLUID (BEAKER) (test efpx=5158) 1 % LYMPHS FLUID (BEAKER) (test lxwb=552) 14 % MONO/MACROPHAGE FLUID (BEAKER) (test 85 % wwdk=175) EOSINOPHILS FLUID (BEAKER) (test kkqx=783) 0 % BASO FLUID (BEAKER) (test nlkj=514) 0 % CONTAINER BODY FLUID (BEAKER) (test EDTA Tube phnc=4783) U/S, [id number] 11:17:00Reason for exam:->ascitesFINAL REPORT Ultrasound guided paracentesis, 01/01/2018. Clinical History:Ascites. Sedation: None. Trim Attacher: Paul Butler MD Peritoneal Dialysis Registered Nurse: None. Estimated Blood Loss: < 1 cc. [...] was achieved with 1% lidocaine, a 5 Setswana one-step catheter was advanced into the peritoneal cavity under ultrasound guidance. After completion of drainage, the catheter was removed. There was no evidence ofcomplication. Patient Disposition: The patient was transferred to the inpatient unit from the ultrasound department after the paracentesis, in good condition. Impression:Successful ultrasound guided paracentesis. Signed: Paul Butler MDReport Verified Date/Time: 01/01/2018 11:17:26 Reading Location: [address] Ultrasound Reading Room CBC W/PLT COUNT & AUTO [id number] 08:55:00 Test Item Value Reference Range Comments WHITE BLOOD CELL COUNT (BEAKER) (test qrit=040) 2.6 K/ L 3.5-10.5 RED BLOOD CELL COUNT (BEAKER) (test aerl=699) 2.17 M/ L 4.63-6.08 HEMOGLOBIN (BEAKER) (test gure=210) 6.9 GM/DL 13.7-17.5 HEMATOCRIT (BEAKER) (test qcwn=810) 20.6 % 40.1-51.0 MEAN CORPUSCULAR VOLUME (BEAKER) (test fcwl=643) 94.9 fL 79.0-92.2 MEAN CORPUSCULAR HEMOGLOBIN (BEAKER) (test 31.8 pg 25.7-32.2 rskh=537) MEAN CORPUSCULAR HEMOGLOBIN CONC (BEAKER) (test 33.5 GM/DL 32.3-36.5 eyyc=749) RED CELL DISTRIBUTION WIDTH (BEAKER) (test 17.0 % 11.6-14.4 ujic=053) PLATELET COUNT (BEAKER) (test wayy=584) 43 K/CU MM 150-450 MEAN PLATELET VOLUME (BEAKER) (test laka=775) 9.3 fL 9.4-12.4 NUCLEATED RED BLOOD CELLS (BEAKER) (test 0 /100 WBC 0-0 dgwg=066) NEUTROPHILS RELATIVE PERCENT (BEAKER) (test 62 % igku=896) LYMPHOCYTES RELATIVE PERCENT (BEAKER) (test 13 % nmaa=138) MONOCYTES RELATIVE PERCENT (BEAKER) (test 18 % bxvk=918) EOSINOPHILS RELATIVE PERCENT (BEAKER) (test 6 % exlu=604) BASOPHILS RELATIVE PERCENT (BEAKER) (test 0 % hgki=764) NEUTROPHILS ABSOLUTE COUNT (BEAKER) (test 1.58 K/ L 1.78-5.38 ptxq=847) LYMPHOCYTES ABSOLUTE COUNT (BEAKER) (test 0.33 K/ L 1.32-3.57 hqvm=345) MONOCYTES ABSOLUTE COUNT (BEAKER) (test boii=167) 0.46 K/ L 0.30-0.82 EOSINOPHILS ABSOLUTE COUNT (BEAKER) (test 0.15 K/ L 0.04-0.54 ubhl=092) BASOPHILS ABSOLUTE COUNT (BEAKER) (test nyqb=987) 0.01 K/ L 0.01-0.08 IMMATURE GRANULOCYTES-RELATIVE PERCENT (BEAKER) 1 % 0-1 (test btjh=5744) (MANUAL DIFFERENTIAL)2018-01-01 08:55:00 Test Item Value Reference Range Comments TOTAL COUNTED (BEAKER) (test gpma=1038) CALCIUM, [id number] 07:43:00 Test Item Value Reference Range Comments CALCIUM IONIZED (BEAKER) (test vvch=307) 1.14 mmol/L 1.12-1.27 PH, BLOOD (BEAKER) (test ybqu=2861) 7.52 [id number] 06:11:00 Test Item Value Reference Range Comments PHOSPHORUS (BEAKER) (test evha=195) 2.5 mg/dL 2.3-4.7 [id number] 06:11:00 Test Item Value Reference Range Comments MAGNESIUM (BEAKER) (test hwwg=362) 1.7 mg/dL 1.6-2.6 COMPREHENSIVE METABOLIC [id number] 06:11:00 Test Item Value Reference Range Comments TOTAL PROTEIN (BEAKER) 5.6 gm/dL 6.0-8.3 (test bcze=162) ALBUMIN (BEAKER) (test 3.6 g/dL 3.5-5.0 ybpn=7719) ALKALINE PHOSPHATASE 68 U/L 40-150 (BEAKER) (test mgnu=428) BILIRUBIN TOTAL (BEAKER) 2.7 mg/dL 0.2-1.2 (test sjgd=453) SODIUM (BEAKER) (test 132 meq/L 136-145 effd=455) POTASSIUM (BEAKER) (test 4.9 meq/L 3.5-5.1 kyzg=502) CHLORIDE (BEAKER) (test 102 meq/L 98-107 ohdy=471) CO2 (BEAKER) (test 24 meq/L 22-29 rrtt=871) BLOOD UREA NITROGEN 20 mg/dL 7-21 (BEAKER) (test buzx=381) CREATININE (BEAKER) (test 1.17 mg/dL 0.57-1.25 cepi=607) GLUCOSE RANDOM (BEAKER) 92 mg/dL 70-105 (test okit=651) CALCIUM (BEAKER) (test 9.7 mg/dL 8.4-10.2 ihzu=090) AST (SGOT) (BEAKER) (test 16 U/L 5-34 ccvs=070) ALT (SGPT) (BEAKER) (test 8 U/L 6-55 pzgq=102) EGFR (BEAKER) (test 65 mL/min/1.73 sq m ESTIMATED GFR IS NOT qwwk=9005) ACCURATE CREATININE CLEARANCE IN PREDICTING GLOMERULAR FILTRATION RATE. ESTIMATED GFR IS NOT APPLICABLE FOR DIALYSIS PATIENTS. Specimen slightly ictericPROTHROMBIN TIME/[id number] 06:00:00 Test Item Value Reference Range Comments PROTIME (BEAKER) (test ajll=592) 24.0 seconds 11.7-14.7 INR (BEAKER) (test uedu=654) 2.2 <=5.9 RECOMMENDED COUMADIN/WARFARIN INR THERAPY RANGESSTANDARD DOSE: 2.0 - 3.0 Includes: PROPHYLAXIS forvenous thrombosis, systemic embolization; TREATMENT for venous thrombosis and/or pulmonary embolus.HIGH RISK: Target INR is 2.5-3.5 for patients with mechanical heart valves.CT, CHEST, WITHOUT [id number] 19:24:00FINAL REPORT HISTORY: Lung nodule, >=1cm COMPARISON [...] MDReport Verified Date/Time: 12/31/2017 19:24:12 Reading Location: [facility] [id number] Consult Reading Room 07: 24 PMPERIPHERAL BLOOD SMEAR - HOLD [id number] 19:18:00 Test Item Value Reference Range Comments PERIPHERAL SMEAR SAVE (BEAKER) prepared and saved smear, (test plza=0654) 12/31/17 RETICULOCYTE [id number] 19:14:00 Test Item Value Reference Range Comments RETICULOCYTE COUNT PCT (BEAKER) (test fskz=298) 3.5 % 0.5-1.8 LACTATE DEHYDROGENASE (LDH)2017-12-31 17:47:00 Test Item Value Reference Range Comments LACTATE DEHYDROGENASE (BEAKER) (test hyko=614) 112 U/L 125-220 BLOOD GAS, [id number] 17:27:00 Test Item Value Reference Range Comments PH ARTERIAL (BEAKER) (test iyse=821) 7.45 7.35-7.45 PCO2 ARTERIAL (BEAKER) (test zkcl=673) 36 mmHg 35-45 PO2 ARTERIAL (BEAKER) (test vdgl=918) 76 mmHg 80-90 O2 SATURATION ARTERIAL (BEAKER) (test boam=598) 96.1 % 96.0-97.0 HCO3 ARTERIAL (BEAKER) (test kqnq=219) 24 mmol/L 21-29 BASE EXCESS ARTERIAL (BEAKER) (test hhuq=316) 0.2 mmol/L -2.0-3.0 PATIENT TEMPERATURE (BEAKER) (test nmbp=3427) 36.4 C FIO2 (BEAKER) (test ysny=2911) 21.0 % MYOCARD IMAGING, MULTI, PHARM, [id number] 15:12:00FINAL REPORT PROCEDURE: Rest/Stress MYOCARDIAL PERFUSION SPECT with regadenoson\XA9\ CPT CODE: 47289 INDICATION: Liver transplant evaluation HISTORY: Cardiac risk [...] [place] Verified Date/Time: 12/31/2017 15:12:03 Reading Location: [address] Reading Room BILIRUBIN, [id number] 14:10:00 Test Item Value Reference Range Comments BILIRUBIN DIRECT (BEAKER) (test hqnw=178) 1.6 mg/dL 0.1-0.5 HEMOGLOBIN AND [id number] 13:22:00 Test Item Value Reference Range Comments HEMOGLOBIN (BEAKER) (test kdng=967) 7.3 GM/DL 13.7-17.5 HEMATOCRIT (BEAKER) (test xdqw=079) 21.9 % 40.1-51.0 CBC W/PLT COUNT & AUTO [id number] 11:06:00 Test Item Value Reference Range Comments WHITE BLOOD CELL COUNT (BEAKER) (test jlgs=197) 2.2 K/ L 3.5-10.5 RED BLOOD CELL COUNT (BEAKER) (test wwsb=271) 2.07 M/ L 4.63-6.08 HEMOGLOBIN (BEAKER) (test fbxh=080) 6.8 GM/DL 13.7-17.5 HEMATOCRIT (BEAKER) (test hzie=028) 19.6 % 40.1-51.0 MEAN CORPUSCULAR VOLUME (BEAKER) (test mzsv=257) 94.7 fL 79.0-92.2 MEAN CORPUSCULAR HEMOGLOBIN (BEAKER) (test 32.9 pg 25.7-32.2 fgns=874) MEAN CORPUSCULAR HEMOGLOBIN CONC (BEAKER) (test 34.7 GM/DL 32.3-36.5 ilkz=516) RED CELL DISTRIBUTION WIDTH (BEAKER) (test 16.9 % 11.6-14.4 tfku=419) PLATELET COUNT (BEAKER) (test nteh=736) 47 K/CU MM 150-450 MEAN PLATELET VOLUME (BEAKER) (test fmeq=955) 9.7 fL 9.4-12.4 NUCLEATED RED BLOOD CELLS (BEAKER) (test 0 /100 WBC 0-0 seqf=509) NEUTROPHILS RELATIVE PERCENT (BEAKER) (test 54 % kbkn=216) LYMPHOCYTES RELATIVE PERCENT (BEAKER) (test 17 % rvys=387) MONOCYTES RELATIVE PERCENT (BEAKER) (test 21 % xwpm=788) EOSINOPHILS RELATIVE PERCENT (BEAKER) (test 8 % wvqc=659) BASOPHILS RELATIVE PERCENT (BEAKER) (test 1 % qcxn=517) NEUTROPHILS ABSOLUTE COUNT (BEAKER) (test 1.17 K/ L 1.78-5.38 cngo=299) LYMPHOCYTES ABSOLUTE COUNT (BEAKER) (test 0.36 K/ L 1.32-3.57 wmbi=884) MONOCYTES ABSOLUTE COUNT (BEAKER) (test shrh=251) 0.45 K/ L 0.30-0.82 EOSINOPHILS ABSOLUTE COUNT (BEAKER) (test 0.17 K/ L 0.04-0.54 jwbf=943) BASOPHILS ABSOLUTE COUNT (BEAKER) (test vsxw=497) 0.01 K/ L 0.01-0.08 IMMATURE GRANULOCYTES-RELATIVE PERCENT (BEAKER) 1 % 0-1 (test dryo=8544) (MANUAL DIFFERENTIAL)2017-12-31 11:06:00 Test Item Value Reference Range Comments TOTAL COUNTED (BEAKER) (test yyjo=1116) [id number] 08:37:00 Test Item Value Reference Range Comments PROTIME (BEAKER) (test inxw=328) 24.0 seconds 11.7-14.7 INR (BEAKER) (test tqeg=943) 2.2 <=5.9 PARTIAL THROMBOPLASTIN TIME (BEAKER) (test 55.2 seconds 22.5-36.0 awkm=180) RECOMMENDED COUMADIN/WARFARIN INR THERAPY RANGESSTANDARD DOSE: 2.0 - 3.0 Includes: PROPHYLAXIS forvenous thrombosis, systemic embolization; TREATMENT for venous thrombosis and/or pulmonary embolus.HIGH RISK: Target INR is 2.5-3.5 for patients with mechanical heart valves.COMPREHENSIVE METABOLIC [id number] 06:37:00 Test Item Value Reference Range Comments TOTAL PROTEIN (BEAKER) 5.7 gm/dL 6.0-8.3 (test tsml=825) ALBUMIN (BEAKER) (test 3.7 g/dL 3.5-5.0 uwfi=1317) ALKALINE PHOSPHATASE 70 U/L 40-150 (BEAKER) (test avbd=396) BILIRUBIN TOTAL (BEAKER) 2.6 mg/dL 0.2-1.2 (test jzgc=664) SODIUM (BEAKER) (test 130 meq/L 136-145 epjm=058) POTASSIUM (BEAKER) (test 5.2 meq/L 3.5-5.1 hwml=980) CHLORIDE (BEAKER) (test 100 meq/L 98-107 xvyb=060) CO2 (BEAKER) (test 25 meq/L 22-29 lxli=263) BLOOD UREA NITROGEN 20 mg/dL 7-21 (BEAKER) (test nrjg=134) CREATININE (BEAKER) (test 1.08 mg/dL 0.57-1.25 zmfu=981) GLUCOSE RANDOM (BEAKER) 91 mg/dL 70-105 (test bpai=909) CALCIUM (BEAKER) (test 9.6 mg/dL 8.4-10.2 xury=744) AST (SGOT) (BEAKER) (test 16 U/L 5-34 fvkv=121) ALT (SGPT) (BEAKER) (test 6 U/L 6-55 yyfu=292) EGFR (BEAKER) (test 72 mL/min/1.73 sq m ESTIMATED GFR IS NOT jolg=4310) ACCURATE CREATININE CLEARANCE IN PREDICTING GLOMERULAR FILTRATION RATE. ESTIMATED GFR IS NOT APPLICABLE FOR DIALYSIS PATIENTS. Specimen slightly [id number] 06:01:00 Test Item Value Reference Range Comments RPR SCREEN (BEAKER) (test vhns=379) Nonreactive Nonreactive CRYPTOCOCCAL [id number] 05:59:00 Test Item Value Reference Range Comments CRYPTOCOCCAL ANTIGEN, SERUM (BEAKER) (test Negative Negative, Interference zfwv=2417) RAD, MANDIBLE, MIN 4 [id number] 01:37:00Reason for exam:->liver transplant evalShould this be [...] scattered sclerotic calvarial foci. Signed: Slick Barcenas [facility] Verified Date/Time: 12/31/2017 01:37:57 Reading Location: [address] Reading Room Electronically signed by: SLICK BARCENAS M.D. on 04/2018 01:37 AMRAD, CHEST, 2 [id number] 23:32:00Reason for exam:-> liver transplant evalShould this [...] MDReport Verified Date/Time: 12/30/2017 23:32:31 Reading Location: [address] Reading Room HEMOGLOBIN [id number] 22:54:00 Test Item Value Reference Range Comments HEMOGLOBIN A1C (BEAKER) (test nuyh=934) 4.1 % 4.3-6.1 HEPATITIS B SURFACE [id number] 16:31:00 Test Item Value Reference Range Comments HEPATITIS B SURFACE ANTIBODY (BEAKER) (test < mIU/mL <8.0 ngdv=981) HEPATITIS B SURFACE [id number] 16:29:00 Test Item Value Reference Range Comments HEPATITIS B SURFACE ANTIGEN (2) (BEAKER) (test Nonreactive Nonreactive mrux=1613) HEPATITIS B CORE ANTIBODY, [id number] 16:29:00 Test Item Value Reference Range Comments HEPATITIS B CORE IGM ANTIBODY (BEAKER) (test Nonreactive Nonreactive tynx=464) HEPATITIS A ANTIBODY, [id number] 16:29:00 Test Item Value Reference Range Comments HEPATITIS A IGM ANTIBODY (BEAKER) (test Nonreactive Nonreactive zqoa=166) HEPATITIS B CORE ANTIBODY, [id number] 16:29:00 Test Item Value Reference Range Comments HEPATITIS B CORE TOTAL ANTIBODY (BEAKER) (test Nonreactive Nonreactive xbkk=438) [id number] 16:26:00 Test Item Value Reference Range Comments T4 TOTAL (BEAKER) (test lsju=689) 3.5 ug/dL 4.9-11.7 [id number] 16:26:00 Test Item Value Reference Range Comments T3 TOTAL (BEAKER) (test zsao=713) 42 ng/dL 48-159 [id number] 16:24:00 Test Item Value Reference Range Comments FERRITIN (BEAKER) (test fokj=158) 1460 ng/mL 5-275 VITAMIN D, 23-[id number] 16:24:00 Test Item Value Reference Range Comments VITAMIN D 25-OH (BEAKER) (test rtjp=1115) 6.9 ng/mL 6.6-49.9 Effective 08/06/2017: Reference Range ChangeNew: 6.6-49.9 ng/mL Previous: 13.0 -47.8 ng/mLRecommended Vitamin D Target Range: 30.0-40.0 ng/[id number] 16: 24:00 Test Item Value Reference Range Comments THYROID STIMULATING HORMONE (BEAKER) (test 1.55 uIU/mL 0.35-4.94 fqvr=448) CARCINOEMBRYONIC ANTIGEN (CEA)2017-12-30 16:24:00 Test Item Value Reference Range Comments CARCINOEMBRYONIC ANTIGEN (BEAKER) (test qwdf=856) 3.0 ng/mL 0.0-5.0 [id number] 16:23:00 Test Item Value Reference Range Comments PROSTATE SPECIFIC ANTIGEN (BEAKER) (test rbhr=951) 0.1 ng/mL 0.0-4.0 HIV-1 ANTIGEN WITH HIV-1/2 [id number] 16:23:00 Test Item Value Reference Range Comments HIV-1 ANTIGEN WITH HIV 1\T\2 ANTIBODY (2) Nonreactive Nonreactive (BEAKER) (test gyco=9924) HEPATITIS C [id number] 16:23:00 Test Item Value Reference Range Comments HEPATITIS C ANTIBODY (BEAKER) (test lnrg=663) Nonreactive Nonreactive LIPID [id number] 16:06:00 Test Item Value Reference Range Comments TRIGLYCERIDES (BEAKER) (test ltzm=660) 38 mg/dL CHOLESTEROL (BEAKER) (test jtuw=780) 51 mg/dL HDL CHOLESTEROL (BEAKER) (test maef=912) 10 mg/dL LDL CHOLESTEROL CALCULATED (BEAKER) (test byeh=903) 33 mg/dL Triglyceride Reference Range: Low Risk [...] Value Reference Range Comments IRON (BEAKER) (test hxdu=614) 90 ug/dL 40-160 TOTAL IRON BINDING CAPACITY (BEAKER) (test 85 ug/dL 250-450 ahni=351) IRON % SATURATION (2) (BEAKER) (test klqz=9795) 106 % 20-55 [id number] 16:04:00 Test Item Value Reference Range Comments TRANSFERRIN (BEAKER) (test tnqp=059) 65 mg/dL 174-382 Specimen slightly ictericURIC [id number] 16:02:00 Test Item Value Reference Range Comments URIC ACID (BEAKER) (test shhk=789) 8.5 mg/dL 2.6-7.2 Specimen slightly [id number] 15:50:00 Test Item Value Reference Range Comments FIBRINOGEN LEVEL (BEAKER) (test eild=245) 161 mg/dl 225-434 BODY FLUID CULTURE + GRAM [id number] 11:45:00 Test Item Value Reference Range Comments CULTURE (BEAKER) (test igwq=3957) No growth GRAM STAIN RESULT (BEAKER) (test No WBCs zmvy=4155) GRAM STAIN RESULT (BEAKER) (test No organisms seen rkxo=67020) CBC W/PLT COUNT & AUTO [id number] 08:05:00 Test Item Value Reference Range Comments WHITE BLOOD CELL COUNT (BEAKER) (test zmqb=443) 2.0 K/ L 3.5-10.5 RED BLOOD CELL COUNT (BEAKER) (test aizf=673) 2.20 M/ L 4.63-6.08 HEMOGLOBIN (BEAKER) (test mpst=782) 7.1 GM/DL 13.7-17.5 HEMATOCRIT (BEAKER) (test oerj=720) 20.8 % 40.1-51.0 MEAN CORPUSCULAR VOLUME (BEAKER) (test wgou=715) 94.5 fL 79.0-92.2 MEAN CORPUSCULAR HEMOGLOBIN (BEAKER) (test 32.3 pg 25.7-32.2 rklu=184) MEAN CORPUSCULAR HEMOGLOBIN CONC (BEAKER) (test 34.1 GM/DL 32.3-36.5 ijiw=439) RED CELL DISTRIBUTION WIDTH (BEAKER) (test 17.0 % 11.6-14.4 quvx=094) PLATELET COUNT (BEAKER) (test vxbq=982) 52 K/CU MM 150-450 MEAN PLATELET VOLUME (BEAKER) (test qxpb=879) 10.7 fL 9.4-12.4 NUCLEATED RED BLOOD CELLS (BEAKER) (test 0 /100 WBC 0-0 lewn=683) NEUTROPHILS RELATIVE PERCENT (BEAKER) (test 55 % uxme=487) LYMPHOCYTES RELATIVE PERCENT (BEAKER) (test 16 % irif=454) MONOCYTES RELATIVE PERCENT (BEAKER) (test 20 % wxbi=951) EOSINOPHILS RELATIVE PERCENT (BEAKER) (test 8 % klvn=573) BASOPHILS RELATIVE PERCENT (BEAKER) (test 1 % tkzg=375) NEUTROPHILS ABSOLUTE COUNT (BEAKER) (test 1.10 K/ L 1.78-5.38 zqcp=009) LYMPHOCYTES ABSOLUTE COUNT (BEAKER) (test 0.32 K/ L 1.32-3.57 fmpz=263) MONOCYTES ABSOLUTE COUNT (BEAKER) (test vevj=475) 0.40 K/ L 0.30-0.82 EOSINOPHILS ABSOLUTE COUNT (BEAKER) (test 0.16 K/ L 0.04-0.54 dfrd=025) BASOPHILS ABSOLUTE COUNT (BEAKER) (test mycq=483) 0.01 K/ L 0.01-0.08 IMMATURE GRANULOCYTES-RELATIVE PERCENT (BEAKER) 1 % 0-1 (test xqzq=8944) (MANUAL DIFFERENTIAL)2017-12-30 08:05:00 Test Item Value Reference Range Comments TOTAL COUNTED (BEAKER) (test oliq=6823) URINALYSIS W/ [id number] 06:46:00 Test Item Value Reference Range Comments COLOR (BEAKER) (test gald=521) Yellow CLARITY (BEAKER) (test ttwt=954) Clear SPECIFIC GRAVITY UA (BEAKER) (test tmyv=863) 1.008 1.001-1.035 PH UA (BEAKER) (test pzfk=812) 6.0 5.0-8.0 PROTEIN UA (BEAKER) (test qykf=702) Negative Negative GLUCOSE UA (BEAKER) (test fnkf=111) Negative Negative KETONES UA (BEAKER) (test vajc=011) Negative Negative BILIRUBIN UA (BEAKER) (test twes=691) Negative Negative BLOOD UA (BEAKER) (test tpdm=801) Negative Negative NITRITE UA (BEAKER) (test jasw=698) Negative Negative LEUKOCYTE ESTERASE UA (BEAKER) (test nzyj=242) Negative Negative UROBILINOGEN UA (BEAKER) (test vyif=044) 0.2 mg/dL 0.2-1.0 RBC UA (BEAKER) (test cvua=345) 0 /HPF WBC UA (BEAKER) (test civp=560) 0 /HPF HYALINE CASTS (BEAKER) (test inqy=204) 5 /LPF SOURCE(BEAKER) (test phzd=0503) Urine, Voided SODIUM, RANDOM [id number] 06:35:00 Test Item Value Reference Range Comments SODIUM URINE (BEAKER) (test iwrs=568) < meq/L Reference Range: No NormalsPROTEIN, RANDOM [id number] 06:35:00 Test Item Value Reference Range Comments PROTEIN, URINE (BEAKER) (test vuch=1348) < mg/dL 0-14 [id number] 06:21:00 Test Item Value Reference Range Comments MAGNESIUM (BEAKER) (test 1.8 mg/dL 1.6-2.6 Specimen slightly hemolyzed zdys=416) [id number] 06:21:00 Test Item Value Reference Range Comments PHOSPHORUS (BEAKER) (test 2.9 mg/dL 2.3-4.7 Specimen slightly hemolyzed ixti=362) COMPREHENSIVE METABOLIC [id number] 06:21:00 Test Item Value Reference Range Comments TOTAL PROTEIN (BEAKER) 5.6 gm/dL 6.0-8.3 Specimen slightly (test ncmw=981) hemolyzed ALBUMIN (BEAKER) (test 3.5 g/dL 3.5-5.0 Specimen slightly yxzk=0771) hemolyzed ALKALINE PHOSPHATASE 75 U/L 40-150 (BEAKER) (test tfbw=421) BILIRUBIN TOTAL (BEAKER) 3.0 mg/dL 0.2-1.2 Specimen slightly (test risk=661) hemolyzed SODIUM (BEAKER) (test 127 meq/L 136-145 jfvm=906) POTASSIUM (BEAKER) (test 5.2 meq/L 3.5-5.1 Specimen slightly umeh=614) hemolyzed CHLORIDE (BEAKER) (test 97 meq/L 98-107 skae=318) CO2 (BEAKER) (test 24 meq/L 22-29 cayz=458) BLOOD UREA NITROGEN 22 mg/dL 7-21 (BEAKER) (test xqti=423) CREATININE (BEAKER) (test 1.11 mg/dL 0.57-1.25 Specimen slightly onfd=202) hemolyzed GLUCOSE RANDOM (BEAKER) 94 mg/dL 70-105 (test prli=735) CALCIUM (BEAKER) (test 9.4 mg/dL 8.4-10.2 fdgn=946) AST (SGOT) (BEAKER) (test 22 U/L 5-34 Specimen slightly vert=291) hemolyzed ALT (SGPT) (BEAKER) (test 7 U/L 6-55 Specimen slightly avpu=376) hemolyzed EGFR (BEAKER) (test 70 mL/min/1.73 sq m ESTIMATED GFR IS NOT ohcp=3424) ACCURATE CREATININE CLEARANCE IN PREDICTING GLOMERULAR FILTRATION RATE. ESTIMATED GFR IS NOT APPLICABLE FOR DIALYSIS PATIENTS. Specimen slightly ictericCREATININE, RANDOM [id number] 06:19:00 Test Item Value Reference Range Comments CREATININE URINE (BEAKER) (test iual=796) 60.6 mg/dL Reference Range: No [id number] 13:43:00 Test Item Value Reference Range Comments ETHANOL (BEAKER) (test mafa=948) < mg/dL <=10 COMPREHENSIVE METABOLIC [id number] 08:23:00 Test Item Value Reference Range Comments TOTAL PROTEIN (BEAKER) 5.5 gm/dL 6.0-8.3 (test wbmf=944) ALBUMIN (BEAKER) (test 3.3 g/dL 3.5-5.0 mekz=4656) ALKALINE PHOSPHATASE 85 U/L 40-150 (BEAKER) (test sqeg=920) BILIRUBIN TOTAL (BEAKER) 3.8 mg/dL 0.2-1.2 (test jtrf=780) SODIUM (BEAKER) (test 125 meq/L 136-145 actt=583) POTASSIUM (BEAKER) (test 4.7 meq/L 3.5-5.1 yqzt=323) CHLORIDE (BEAKER) (test 96 meq/L 98-107 twnd=483) CO2 (BEAKER) (test 21 meq/L 22-29 aydp=803) BLOOD UREA NITROGEN 22 mg/dL 7-21 (BEAKER) (test wbof=645) CREATININE (BEAKER) (test 1.26 mg/dL 0.57-1.25 ngvu=857) GLUCOSE RANDOM (BEAKER) 95 mg/dL 70-105 (test zzmi=647) CALCIUM (BEAKER) (test 9.1 mg/dL 8.4-10.2 kdvg=481) AST (SGOT) (BEAKER) (test 20 U/L 5-34 wssv=367) ALT (SGPT) (BEAKER) (test 8 U/L 6-55 dzyq=151) EGFR (BEAKER) (test 60 mL/min/1.73 sq m ESTIMATED GFR IS NOT qcsu=0055) ACCURATE CREATININE CLEARANCE IN PREDICTING GLOMERULAR FILTRATION RATE. ESTIMATED GFR IS NOT APPLICABLE FOR DIALYSIS PATIENTS. Specimen slightly ictericCBC W/PLT COUNT & AUTO [id number] 07:17 :00 Test Item Value Reference Range Comments WHITE BLOOD CELL COUNT (BEAKER) (test ydic=192) 2.8 K/ L 3.5-10.5 RED BLOOD CELL COUNT (BEAKER) (test kpid=307) 2.28 M/ L 4.63-6.08 HEMOGLOBIN (BEAKER) (test bjzc=848) 7.3 GM/DL 13.7-17.5 HEMATOCRIT (BEAKER) (test evpr=487) 21.4 % 40.1-51.0 MEAN CORPUSCULAR VOLUME (BEAKER) (test fknq=462) 93.9 fL 79.0-92.2 MEAN CORPUSCULAR HEMOGLOBIN (BEAKER) (test 32.0 pg 25.7-32.2 xget=205) MEAN CORPUSCULAR HEMOGLOBIN CONC (BEAKER) (test 34.1 GM/DL 32.3-36.5 nbqe=544) RED CELL DISTRIBUTION WIDTH (BEAKER) (test 16.9 % 11.6-14.4 ldrp=091) PLATELET COUNT (BEAKER) (test qnmk=534) 52 K/CU MM 150-450 MEAN PLATELET VOLUME (BEAKER) (test qqco=740) 9.8 fL 9.4-12.4 NUCLEATED RED BLOOD CELLS (BEAKER) (test 0 /100 WBC 0-0 uprk=349) NEUTROPHILS RELATIVE PERCENT (BEAKER) (test 61 % injd=257) LYMPHOCYTES RELATIVE PERCENT (BEAKER) (test 14 % sswk=825) MONOCYTES RELATIVE PERCENT (BEAKER) (test 18 % yclf=543) EOSINOPHILS RELATIVE PERCENT (BEAKER) (test 7 % wvei=598) BASOPHILS RELATIVE PERCENT (BEAKER) (test 0 % bqyq=585) NEUTROPHILS ABSOLUTE COUNT (BEAKER) (test 1.69 K/ L 1.78-5.38 xhmf=391) LYMPHOCYTES ABSOLUTE COUNT (BEAKER) (test 0.38 K/ L 1.32-3.57 exov=051) MONOCYTES ABSOLUTE COUNT (BEAKER) (test omcl=531) 0.51 K/ L 0.30-0.82 EOSINOPHILS ABSOLUTE COUNT (BEAKER) (test 0.18 K/ L 0.04-0.54 vole=944) BASOPHILS ABSOLUTE COUNT (BEAKER) (test afvu=180) 0.01 K/ L 0.01-0.08 IMMATURE GRANULOCYTES-RELATIVE PERCENT (BEAKER) 1 % 0-1 (test qffo=0289) CT, [id number] 22:20:00FINAL REPORT EXAM: CT of the abdomen [...] MDReport Verified Date/Time: 12/28/2017 22:20:52 Reading Location: [address] Reading Room CBC W/PLT COUNT & AUTO [id number] 18:06:00 Test Item Value Reference Range Comments WHITE BLOOD CELL COUNT (BEAKER) (test vxiq=596) 2.9 K/ L 3.5-10.5 RED BLOOD CELL COUNT (BEAKER) (test mqpz=194) 2.03 M/ L 4.63-6.08 HEMOGLOBIN (BEAKER) (test bsya=997) 6.5 GM/DL 13.7-17.5 HEMATOCRIT (BEAKER) (test kqie=659) 19.2 % 40.1-51.0 MEAN CORPUSCULAR VOLUME (BEAKER) (test hzhj=244) 94.6 fL 79.0-92.2 MEAN CORPUSCULAR HEMOGLOBIN (BEAKER) (test 32.0 pg 25.7-32.2 rhuy=303) MEAN CORPUSCULAR HEMOGLOBIN CONC (BEAKER) (test 33.9 GM/DL 32.3-36.5 bqwz=354) RED CELL DISTRIBUTION WIDTH (BEAKER) (test 17.6 % 11.6-14.4 owrd=852) PLATELET COUNT (BEAKER) (test holy=033) 46 K/CU MM 150-450 MEAN PLATELET VOLUME (BEAKER) (test tpdr=262) 9.3 fL 9.4-12.4 NUCLEATED RED BLOOD CELLS (BEAKER) (test 0 /100 WBC 0-0 ybov=252) NEUTROPHILS RELATIVE PERCENT (BEAKER) (test 66 % swaa=735) LYMPHOCYTES RELATIVE PERCENT (BEAKER) (test 12 % irvo=068) MONOCYTES RELATIVE PERCENT (BEAKER) (test 15 % hrva=758) EOSINOPHILS RELATIVE PERCENT (BEAKER) (test 6 % rutz=782) BASOPHILS RELATIVE PERCENT (BEAKER) (test 0 % hpkm=659) NEUTROPHILS ABSOLUTE COUNT (BEAKER) (test 1.92 K/ L 1.78-5.38 torl=777) LYMPHOCYTES ABSOLUTE COUNT (BEAKER) (test 0.36 K/ L 1.32-3.57 dhog=680) MONOCYTES ABSOLUTE COUNT (BEAKER) (test otus=509) 0.44 K/ L 0.30-0.82 EOSINOPHILS ABSOLUTE COUNT (BEAKER) (test 0.16 K/ L 0.04-0.54 gfls=014) BASOPHILS ABSOLUTE COUNT (BEAKER) (test prpn=037) 0.01 K/ L 0.01-0.08 IMMATURE GRANULOCYTES-RELATIVE PERCENT (BEAKER) 1 % 0-1 (test htsq=5349) CBC W/PLT COUNT & AUTO [id number] 12:30:00 Test Item Value Reference Range Comments WHITE BLOOD CELL COUNT (BEAKER) (test dafi=051) 3.1 K/ L 3.5-10.5 RED BLOOD CELL COUNT (BEAKER) (test kucc=190) 2.09 M/ L 4.63-6.08 HEMOGLOBIN (BEAKER) (test oieh=283) 6.8 GM/DL 13.7-17.5 HEMATOCRIT (BEAKER) (test kwqb=019) 19.9 % 40.1-51.0 MEAN CORPUSCULAR VOLUME (BEAKER) (test aivo=657) 95.2 fL 79.0-92.2 MEAN CORPUSCULAR HEMOGLOBIN (BEAKER) (test 32.5 pg 25.7-32.2 ixtc=254) MEAN CORPUSCULAR HEMOGLOBIN CONC (BEAKER) (test 34.2 GM/DL 32.3-36.5 dqxw=510) RED CELL DISTRIBUTION WIDTH (BEAKER) (test 17.5 % 11.6-14.4 okel=082) PLATELET COUNT (BEAKER) (test spgx=887) 65 K/CU MM 150-450 MEAN PLATELET VOLUME (BEAKER) (test vxhc=680) 10.6 fL 9.4-12.4 NUCLEATED RED BLOOD CELLS (BEAKER) (test 0 /100 WBC 0-0 vzos=589) NEUTROPHILS RELATIVE PERCENT (BEAKER) (test 60 % hjyd=767) LYMPHOCYTES RELATIVE PERCENT (BEAKER) (test 14 % epdd=750) MONOCYTES RELATIVE PERCENT (BEAKER) (test 17 % qyli=493) EOSINOPHILS RELATIVE PERCENT (BEAKER) (test 8 % pytm=274) BASOPHILS RELATIVE PERCENT (BEAKER) (test 0 % mdhn=025) NEUTROPHILS ABSOLUTE COUNT (BEAKER) (test 1.85 K/ L 1.78-5.38 kxvx=185) LYMPHOCYTES ABSOLUTE COUNT (BEAKER) (test 0.42 K/ L 1.32-3.57 dfew=467) MONOCYTES ABSOLUTE COUNT (BEAKER) (test bubn=840) 0.52 K/ L 0.30-0.82 EOSINOPHILS ABSOLUTE COUNT (BEAKER) (test 0.26 K/ L 0.04-0.54 oapt=445) BASOPHILS ABSOLUTE COUNT (BEAKER) (test sgmt=762) 0.01 K/ L 0.01-0.08 IMMATURE GRANULOCYTES-RELATIVE PERCENT (BEAKER) 1 % 0-1 (test vllk=1507) U/S, [id number] 06:59:00Limit fluid removal to no more than 5 litersReason for exam:->ascites, concern for sbpShould thisbe performed at the bedside?->NoFINAL REPORT Paracentesis dated 2017 Procedure: Ultrasound-guided paracentesis. Preprocedure diagnosis: Ascites Postprocedure diagnosis: Ascites Conscious sedation: None. Radiologist: Lena Lynn M.D. Peritoneal Dialysis Registered Nurse: None Anesthesia: 1% Xylocaine mixed with sodium bicarbonate local anesthesia. Technique: After obtaining informed consent, ultrasound-guided paracentesis was performed under usual sterile technique. Using a 5 [place] drainage catheter, puncture was made in the right lower quadrant abdomen. Approximately 5000 cc of serous fluid was removed. Patient tolerated the procedure well without complication. Complication: None Graft/ Implant: None Estimated Blood Loss: NoneImpression: Ultrasound-guided paracentesis. Signed: Lena Lynn MDReport Verified Date/Time: 12/28/2017 06:59 :16 Reading Location: [facility] B1 C013Y CT Body Reading Room ALPHA FETOPROTEIN (AFP), TUMOR [id number] 06:22:00 Test Item Value Reference Range Comments ALPHA-FETOPROTEIN (BEAKER) (test srjb=4833) 4.1 ng/mL <10.0 COMPREHENSIVE METABOLIC [id number] 06:00:00 Test Item Value Reference Range Comments TOTAL PROTEIN (BEAKER) 5.3 gm/dL 6.0-8.3 (test tnqy=915) ALBUMIN (BEAKER) (test 2.7 g/dL 3.5-5.0 agdz=9323) ALKALINE PHOSPHATASE 94 U/L 40-150 (BEAKER) (test vmbl=961) BILIRUBIN TOTAL (BEAKER) 3.7 mg/dL 0.2-1.2 (test lgaw=869) SODIUM (BEAKER) (test 124 meq/L 136-145 vqpk=363) POTASSIUM (BEAKER) (test 4.6 meq/L 3.5-5.1 zgkw=978) CHLORIDE (BEAKER) (test 96 meq/L 98-107 ryzv=976) CO2 (BEAKER) (test 22 meq/L 22-29 oijr=077) BLOOD UREA NITROGEN 22 mg/dL 7-21 (BEAKER) (test fcfn=695) CREATININE (BEAKER) (test 1.40 mg/dL 0.57-1.25 ndxy=083) GLUCOSE RANDOM (BEAKER) 89 mg/dL 70-105 (test uffd=405) CALCIUM (BEAKER) (test 8.8 mg/dL 8.4-10.2 edlj=905) AST (SGOT) (BEAKER) (test 25 U/L 5-34 gdkd=454) ALT (SGPT) (BEAKER) (test 10 U/L 6-55 mjys=910) EGFR (BEAKER) (test 53 mL/min/1.73 sq m ESTIMATED GFR IS NOT xidh=9294) ACCURATE CREATININE CLEARANCE IN PREDICTING GLOMERULAR FILTRATION RATE. ESTIMATED GFR IS NOT APPLICABLE FOR DIALYSIS PATIENTS. Specimen slightly ictericCBC W/PLT COUNT & AUTO [id number] 05:50 :00 Test Item Value Reference Range Comments WHITE BLOOD CELL COUNT (BEAKER) (test rgzq=892) 3.1 K/ L 3.5-10.5 RED BLOOD CELL COUNT (BEAKER) (test oplx=331) 2.00 M/ L 4.63-6.08 HEMOGLOBIN (BEAKER) (test wjfv=482) 6.4 GM/DL 13.7-17.5 HEMATOCRIT (BEAKER) (test stmr=657) 18.9 % 40.1-51.0 MEAN CORPUSCULAR VOLUME (BEAKER) (test wnke=358) 94.5 fL 79.0-92.2 MEAN CORPUSCULAR HEMOGLOBIN (BEAKER) (test 32.0 pg 25.7-32.2 hypp=950) MEAN CORPUSCULAR HEMOGLOBIN CONC (BEAKER) (test 33.9 GM/DL 32.3-36.5 ikyk=978) RED CELL DISTRIBUTION WIDTH (BEAKER) (test 17.9 % 11.6-14.4 wrub=826) PLATELET COUNT (BEAKER) (test aavv=380) 59 K/CU MM 150-450 MEAN PLATELET VOLUME (BEAKER) (test rujt=321) 10.4 fL 9.4-12.4 NUCLEATED RED BLOOD CELLS (BEAKER) (test 0 /100 WBC 0-0 xmqs=488) NEUTROPHILS RELATIVE PERCENT (BEAKER) (test 63 % lkdy=897) LYMPHOCYTES RELATIVE PERCENT (BEAKER) (test 14 % ygnv=997) MONOCYTES RELATIVE PERCENT (BEAKER) (test 15 % iryi=273) EOSINOPHILS RELATIVE PERCENT (BEAKER) (test 7 % tzpi=642) BASOPHILS RELATIVE PERCENT (BEAKER) (test 0 % uvjj=383) NEUTROPHILS ABSOLUTE COUNT (BEAKER) (test 1.94 K/ L 1.78-5.38 ptps=240) LYMPHOCYTES ABSOLUTE COUNT (BEAKER) (test 0.44 K/ L 1.32-3.57 kpdo=905) MONOCYTES ABSOLUTE COUNT (BEAKER) (test dpnx=525) 0.47 K/ L 0.30-0.82 EOSINOPHILS ABSOLUTE COUNT (BEAKER) (test 0.21 K/ L 0.04-0.54 hknf=041) BASOPHILS ABSOLUTE COUNT (BEAKER) (test gxkl=090) 0.01 K/ L 0.01-0.08 IMMATURE GRANULOCYTES-RELATIVE PERCENT (BEAKER) 1 % 0-1 (test ywbb=7247) BODY FLUID CELL COUNT WITH [id number] 20:39:00 Test Item Value Reference Range Comments APPEARANCE FLUID (BEAKER) (test smfl=359) Slightly Hazy Clear COLOR FLUID (BEAKER) (test unzy=617) Yellow Colorless, Straw RBC FLUID (BEAKER) (test mnvd=502) 90 /cu mm <=1 ADJUSTED WBC FLUID (BEAKER) (test rdpw=6484) 47 /cu mm <=5 LINING CELLS (BEAKER) (test vuqk=8761) 3 /cu mm <=1 NEUTROPHILS FLUID (BEAKER) (test diuk=9140) 2 % LYMPHS FLUID (BEAKER) (test jafm=098) 19 % MONO/MACROPHAGE FLUID (BEAKER) (test 79 % hmcg=832) EOSINOPHILS FLUID (BEAKER) (test xtnr=588) 0 % BASO FLUID (BEAKER) (test bggy=628) 0 % CONTAINER BODY FLUID (BEAKER) (test EDTA Tube unbr=5042) ALBUMIN, BODY [id number] 20:14:00 Test Item Value Reference Range Comments ALBUMIN FLUID (BEAKER) (test zrkp=130) 0.4 gm/dL Reference Range: No Normals Assay performance has not been validated for this type of specimen.BASIC METABOLIC [id number] 10:31:00 Test Item Value Reference Range Comments SODIUM (BEAKER) (test 125 meq/L 136-145 njsy=813) POTASSIUM (BEAKER) (test 4.5 meq/L 3.5-5.1 jsob=269) CHLORIDE (BEAKER) (test 98 meq/L 98-107 drue=171) CO2 (BEAKER) (test 20 meq/L 22-29 nspy=868) BLOOD UREA NITROGEN 22 mg/dL 7-21 (BEAKER) (test xhhf=301) CREATININE (BEAKER) (test 1.45 mg/dL 0.57-1.25 vyad=821) GLUCOSE RANDOM (BEAKER) 87 mg/dL 70-105 (test ymyp=637) CALCIUM (BEAKER) (test 8.6 mg/dL 8.4-10.2 xiye=851) EGFR (BEAKER) (test 51 mL/min/1.73 sq m ESTIMATED GFR IS NOT xpsy=1973) ACCURATE CREATININE CLEARANCE IN PREDICTING GLOMERULAR FILTRATION RATE. ESTIMATED GFR IS NOT APPLICABLE FOR DIALYSIS PATIENTS. Specimen slightly ictericHEPATIC FUNCTION [id number] 10:31:00 Test Item Value Reference Range Comments TOTAL PROTEIN (BEAKER) (test znno=302) 5.8 gm/dL 6.0-8.3 ALBUMIN (BEAKER) (test wgiy=4431) 2.4 g/dL 3.5-5.0 BILIRUBIN TOTAL (BEAKER) (test agxx=824) 4.1 mg/dL 0.2-1.2 BILIRUBIN DIRECT (BEAKER) (test ymqb=759) 3.1 mg/dL 0.1-0.5 ALKALINE PHOSPHATASE (BEAKER) (test cqcp=216) 126 U/L 40-150 AST (SGOT) (BEAKER) (test knqe=532) 28 U/L 5-34 ALT (SGPT) (BEAKER) (test uiwn=874) 13 U/L 6-55 Specimen slightly ictericCBC W/PLT COUNT & AUTO [id number] 10:09 :00 Test Item Value Reference Range Comments WHITE BLOOD CELL COUNT (BEAKER) (test wvyh=397) 5.5 K/ L 3.5-10.5 RED BLOOD CELL COUNT (BEAKER) (test iieo=791) 2.56 M/ L 4.63-6.08 HEMOGLOBIN (BEAKER) (test opzc=656) 8.1 GM/DL 13.7-17.5 HEMATOCRIT (BEAKER) (test tjrl=377) 24.2 % 40.1-51.0 MEAN CORPUSCULAR VOLUME (BEAKER) (test xxia=405) 94.5 fL 79.0-92.2 MEAN CORPUSCULAR HEMOGLOBIN (BEAKER) (test 31.6 pg 25.7-32.2 lojv=908) MEAN CORPUSCULAR HEMOGLOBIN CONC (BEAKER) (test 33.5 GM/DL 32.3-36.5 pjgh=664) RED CELL DISTRIBUTION WIDTH (BEAKER) (test 18.6 % 11.6-14.4 rmeb=012) PLATELET COUNT (BEAKER) (test bwsz=677) 86 K/CU MM 150-450 MEAN PLATELET VOLUME (BEAKER) (test mpsr=327) 9.7 fL 9.4-12.4 NUCLEATED RED BLOOD CELLS (BEAKER) (test 0 /100 WBC 0-0 lkuk=348) NEUTROPHILS RELATIVE PERCENT (BEAKER) (test 65 % pwpt=440) LYMPHOCYTES RELATIVE PERCENT (BEAKER) (test 13 % xbin=027) MONOCYTES RELATIVE PERCENT (BEAKER) (test 14 % oyvs=799) EOSINOPHILS RELATIVE PERCENT (BEAKER) (test 6 % gwfe=280) BASOPHILS RELATIVE PERCENT (BEAKER) (test 0 % jmfs=597) NEUTROPHILS ABSOLUTE COUNT (BEAKER) (test 3.59 K/ L 1.78-5.38 bbvm=020) LYMPHOCYTES ABSOLUTE COUNT (BEAKER) (test 0.73 K/ L 1.32-3.57 jzyq=323) MONOCYTES ABSOLUTE COUNT (BEAKER) (test qjra=926) 0.76 K/ L 0.30-0.82 EOSINOPHILS ABSOLUTE COUNT (BEAKER) (test 0.33 K/ L 0.04-0.54 jlfs=380) BASOPHILS ABSOLUTE COUNT (BEAKER) (test wawv=568) 0.02 K/ L 0.01-0.08 IMMATURE GRANULOCYTES-RELATIVE PERCENT (BEAKER) 1 % 0-1 (test empf=3615) PROTHROMBIN TIME/[id number] 07:51:00 Test Item Value Reference Range Comments PROTIME (BEAKER) (test algl=578) 23.8 seconds 11.7-14.7 INR (BEAKER) (test susq=320) 2.1 <=5.9 RECOMMENDED COUMADIN/WARFARIN INR THERAPY RANGESSTANDARD DOSE: 2.0 - 3.0 Includes: PROPHYLAXIS forvenous thrombosis, systemic embolization; TREATMENT for venous thrombosis and/or pulmonary embolus.HIGH RISK: Target INR is 2.5-3.5 for patients with mechanical heart valves.BLOOD [id number] 05:02:00 Test Item Value Reference Range Comments CULTURE (BEAKER) (test zrbk=2599) No growth in 5 days BLOOD [id number] 05:02:00 Test Item Value Reference Range Comments CULTURE (BEAKER) (test hzuk=2034) No growth in 5 days BODY FLUID CULTURE + GRAM [id number] 09:05:00 Test Item Value Reference Range Comments CULTURE (BEAKER) (test zonp=5869) No growth GRAM STAIN RESULT (BEAKER) (test No White blood cells seen clnk=3446) GRAM STAIN RESULT (BEAKER) (test No organisms seen vvqh=34959) RAPID DRUG SCREEN, [id number] 23:13:00 Test Item Value Reference Range Comments BARBITURATE URINE (BEAKER) (test loms=720) Negative Negative BENZODIAZEPINE SCREEN URINE (BEAKER) (test Negative Negative pbxu=215) COCAINE (METAB.) SCREEN (BEAKER) (test tahq=7223) Negative Negative METHADONE SCREEN (BEAKER) (test wfzq=1875) Negative Negative OPIATE SCREEN URINE (BEAKER) (test hwyt=361) Negative Negative CANNABINOID SCREEN URINE (BEAKER) (test gnuj=144) Negative Negative AMPH/METHAMPH SCREEN (BEAKER) (test nxnr=5979) Negative Negative PHENCYCLIDINE SCREEN URINE (BEAKER) (test krdg=701) Negative Negative OXYCODONE SCREEN URINE (BEAKER) (test qnnw=6422) Negative Negative DRUG CUTOFF CONC.Cocaine 300 ng/mL Cannabinoid 50 ng/mL Benzodiazepine 200 ng/mLBarbiturate 200 ng/ mLPhencyclidine 25 ng/mLOpiate 300 ng/mLMethadone 300 ng/mLAmphetamine/ 1000 ng/mL MethamphetamineOxycodone 300 ng/mLThis assay provides an unconfirmed qualitative test result for the clinical management of patients in emergency situations. Chain of custody not maintained. Some ctic-vey-iogumcq medications, as well as adulterants, may cause inaccurate results. Clinical correlation should be applied. A more comprehensive drug screen or confirmation of a detected drug may be performed upon request.MR, ABDOMEN, [id number] 13:52:00FINAL REPORT MRI of the abdomen with [...] MDReport Verified Date/Time: 09/05/2017 13:52:35 Reading Location: [address] BodyReading Room CBC W/PLT COUNT & AUTO [id number] 05:46:00 Test Item Value Reference Range Comments WHITE BLOOD CELL COUNT (BEAKER) (test afbv=013) 4.7 K/ L 3.5-10.5 RED BLOOD CELL COUNT (BEAKER) (test vfts=187) 2.49 M/ L 4.63-6.08 HEMOGLOBIN (BEAKER) (test falo=766) 7.9 GM/DL 13.7-17.5 HEMATOCRIT (BEAKER) (test yxfk=037) 22.6 % 40.1-51.0 MEAN CORPUSCULAR VOLUME (BEAKER) (test gmna=541) 90.8 fL 79.0-92.2 MEAN CORPUSCULAR HEMOGLOBIN (BEAKER) (test 31.7 pg 25.7-32.2 uumk=630) MEAN CORPUSCULAR HEMOGLOBIN CONC (BEAKER) (test 35.0 GM/DL 32.3-36.5 insx=040) RED CELL DISTRIBUTION WIDTH (BEAKER) (test 18.8 % 11.6-14.4 kvnt=300) PLATELET COUNT (BEAKER) (test wvtk=116) 60 K/CU MM 150-450 MEAN PLATELET VOLUME (BEAKER) (test eeei=991) 9.2 fL 9.4-12.4 NUCLEATED RED BLOOD CELLS (BEAKER) (test 0 /100 WBC 0-0 ucyi=703) NEUTROPHILS RELATIVE PERCENT (BEAKER) (test 65 % cqrs=192) LYMPHOCYTES RELATIVE PERCENT (BEAKER) (test 13 % qtoy=770) MONOCYTES RELATIVE PERCENT (BEAKER) (test 15 % ksos=760) EOSINOPHILS RELATIVE PERCENT (BEAKER) (test 6 % yjvv=333) BASOPHILS RELATIVE PERCENT (BEAKER) (test 0 % veyq=223) NEUTROPHILS ABSOLUTE COUNT (BEAKER) (test 3.05 K/ L 1.78-5.38 pajn=322) LYMPHOCYTES ABSOLUTE COUNT (BEAKER) (test 0.62 K/ L 1.32-3.57 sgfo=055) MONOCYTES ABSOLUTE COUNT (BEAKER) (test rbqj=854) 0.68 K/ L 0.30-0.82 EOSINOPHILS ABSOLUTE COUNT (BEAKER) (test 0.28 K/ L 0.04-0.54 ptvh=905) BASOPHILS ABSOLUTE COUNT (BEAKER) (test hshe=750) 0.02 K/ L 0.01-0.08 IMMATURE GRANULOCYTES-RELATIVE PERCENT (BEAKER) 1 % 0-1 (test vild=7527) BASIC METABOLIC [id number] 05:44:00 Test Item Value Reference Range Comments SODIUM (BEAKER) (test 127 meq/L 136-145 stex=725) POTASSIUM (BEAKER) (test 4.5 meq/L 3.5-5.1 tlck=411) CHLORIDE (BEAKER) (test 101 meq/L 98-107 xwfw=824) CO2 (BEAKER) (test 19 meq/L 22-29 mnls=539) BLOOD UREA NITROGEN 17 mg/dL 7-21 (BEAKER) (test ktkg=266) CREATININE (BEAKER) (test 0.91 mg/dL 0.57-1.25 rhut=709) GLUCOSE RANDOM (BEAKER) 107 mg/dL 70-105 (test akth=521) CALCIUM (BEAKER) (test 9.4 mg/dL 8.4-10.2 obzy=831) EGFR (BEAKER) (test 87 mL/min/1.73 sq m ESTIMATED GFR IS NOT wsfo=3088) ACCURATE CREATININE CLEARANCE IN PREDICTING GLOMERULAR FILTRATION RATE. ESTIMATED GFR IS NOT APPLICABLE FOR DIALYSIS PATIENTS. Specimen moderately ictericHEPATIC FUNCTION [id number] 05:44:00 Test Item Value Reference Range Comments TOTAL PROTEIN (BEAKER) (test dnou=284) 5.6 gm/dL 6.0-8.3 ALBUMIN (BEAKER) (test dyia=4471) 3.3 g/dL 3.5-5.0 BILIRUBIN TOTAL (BEAKER) (test kkpm=603) 10.3 mg/dL 0.2-1.2 BILIRUBIN DIRECT (BEAKER) (test oojh=858) 6.8 mg/dL 0.1-0.5 ALKALINE PHOSPHATASE (BEAKER) (test bvqu=007) 103 U/L 40-150 AST (SGOT) (BEAKER) (test qsqk=591) 17 U/L 5-34 ALT (SGPT) (BEAKER) (test walq=094) 8 U/L 6-55 Specimen moderately ictericPT/[id number] 05:31:00 Test Item Value Reference Range Comments PROTIME (BEAKER) (test pxwb=057) 25.6 seconds 11.7-14.7 INR (BEAKER) (test kqzv=992) 2.3 <=5.9 PARTIAL THROMBOPLASTIN TIME (BEAKER) (test 51.6 seconds 22.5-36.0 wwsz=424) RECOMMENDED COUMADIN/WARFARIN INR THERAPY RANGESSTANDARD DOSE: 2.0 - 3.0 Includes: PROPHYLAXIS forvenous thrombosis, systemic embolization; TREATMENT for venous thrombosis and/or pulmonary embolus.HIGH RISK: Target INR is 2.5-3.5 for patients with mechanical heart valves.PROTHROMBIN TIME/[id number] 05:30: 00 Test Item Value Reference Range Comments PROTIME (BEAKER) (test xusw=593) 25.6 seconds 11.7-14.7 INR (BEAKER) (test cpov=015) 2.3 <=5.9 RECOMMENDED COUMADIN/WARFARIN INR THERAPY RANGESSTANDARD DOSE: 2.0 - 3.0 Includes: PROPHYLAXIS forvenous thrombosis, systemic embolization; TREATMENT for venous thrombosis and/or pulmonary embolus.HIGH RISK: Target INR is 2.5-3.5 for patients with mechanical heart valves.BODY FLUID CELL COUNT WITH [id number] 19:30:00 Test Item Value Reference Range Comments APPEARANCE FLUID (BEAKER) (test wfph=843) Slightly Hazy Clear COLOR FLUID (BEAKER) (test fssr=779) Yellow Colorless, Straw RBC FLUID (BEAKER) (test asqr=506) 100 /cu mm <=1 ADJUSTED WBC FLUID (BEAKER) (test nmph=2857) 36 /cu mm <=5 LINING CELLS (BEAKER) (test akun=4856) 4 /cu mm <=1 NEUTROPHILS FLUID (BEAKER) (test snak=6084) 0 % LYMPHS FLUID (BEAKER) (test nfni=190) 20 % MONO/MACROPHAGE FLUID (BEAKER) (test 80 % kpwk=205) EOSINOPHILS FLUID (BEAKER) (test igbd=728) 0 % BASO FLUID (BEAKER) (test ilob=252) 0 % CONTAINER BODY FLUID (BEAKER) (test EDTA Tube hdyt=5621) U/S, [id number] 16:21:00Reason for exam:->ascitesShould this be performed at the bedside?->NoFINAL REPORT PROCEDURE: Ultrasound-guided paracentesis. INDICATION: 52-year-old man with ascites. DESCRIPTION: After obtaining informed written consent, ultrasound scan of the abdomen identified ascites in the right lower quadrant. The overlying skin was prepped and draped in the usual, sterile fashion and local 1% lidocaine anesthesia was administered. A 5 Setswana catheter was advanced into the peritoneal cavity and 13,200 cc of cloudy yellow fluid was removed. The catheter was removed without immediate complication. Samples were sent for analysis. IMPRESSION:Uncomplicated ultrasound-guided paracentesis with 13,200 cc fluid removed. Signed: Candice Mckeon Verified Date/Time: 2016 16:21:22 Reading Location: [address] Ultrasound Reading Room [facility] [id number] 11:07:00 Test Item Value Reference Range Comments SODIUM (BEAKER) (test 127 meq/L 136-145 rlll=933) POTASSIUM (BEAKER) (test 4.1 meq/L 3.5-5.1 velc=476) CHLORIDE (BEAKER) (test 101 meq/L 98-107 ndrr=979) CO2 (BEAKER) (test 23 meq/L 22-29 hqjb=628) BLOOD UREA NITROGEN 17 mg/dL 7-21 (BEAKER) (test ewph=251) CREATININE (BEAKER) (test 1.06 mg/dL 0.57-1.25 dcrh=436) GLUCOSE RANDOM (BEAKER) 104 mg/dL 70-105 (test iydc=903) CALCIUM (BEAKER) (test 8.9 mg/dL 8.4-10.2 nsqf=241) EGFR (BEAKER) (test 73 mL/min/1.73 sq m ESTIMATED GFR IS NOT nrlk=5974) ACCURATE CREATININE CLEARANCE IN PREDICTING GLOMERULAR FILTRATION RATE. ESTIMATED GFR IS NOT APPLICABLE FOR DIALYSIS PATIENTS. Specimen markedly ictericHEPATIC FUNCTION [id number] 11:07:00 Test Item Value Reference Range Comments TOTAL PROTEIN (BEAKER) (test fsja=109) 5.4 gm/dL 6.0-8.3 ALBUMIN (BEAKER) (test xaow=2363) 2.8 g/dL 3.5-5.0 BILIRUBIN TOTAL (BEAKER) (test unel=473) 12.7 mg/dL 0.2-1.2 BILIRUBIN DIRECT (BEAKER) (test mrvw=725) 7.8 mg/dL 0.1-0.5 ALKALINE PHOSPHATASE (BEAKER) (test utmd=576) 90 U/L 40-150 AST (SGOT) (BEAKER) (test cpmw=896) 22 U/L 5-34 ALT (SGPT) (BEAKER) (test izsi=555) 11 U/L 6-55 Specimen markedly ictericPT/[id number] 11:02:00 Test Item Value Reference Range Comments PROTIME (BEAKER) (test dwpk=113) 23.4 seconds 11.7-14.7 INR (BEAKER) (test lnvk=266) 2.1 <=5.9 PARTIAL THROMBOPLASTIN TIME (BEAKER) (test 48.7 seconds 22.5-36.0 wjtt=210) RECOMMENDED COUMADIN/WARFARIN INR THERAPY RANGESSTANDARD DOSE: 2.0 - 3.0 Includes: PROPHYLAXIS forvenous thrombosis, systemic embolization; TREATMENT for venous thrombosis and/or pulmonary embolus.HIGH RISK: Target INR is 2.5-3.5 for patients with mechanical heart valves.PROTHROMBIN TIME/[id number] 11:01: 00 Test Item Value Reference Range Comments PROTIME (BEAKER) (test xaue=508) 23.4 seconds 11.7-14.7 INR (BEAKER) (test japr=317) 2.1 <=5.9 RECOMMENDED COUMADIN/WARFARIN INR THERAPY RANGESSTANDARD DOSE: 2.0 - 3.0 Includes: PROPHYLAXIS forvenous thrombosis, systemic embolization; TREATMENT for venous thrombosis and/or pulmonary embolus.HIGH RISK: Target INR is 2.5-3.5 for patients with mechanical heart valves.CBC W/PLT COUNT & AUTO [id number] 10:56:00 Test Item Value Reference Range Comments WHITE BLOOD CELL COUNT (BEAKER) (test kmkj=718) 4.4 K/ L 3.5-10.5 RED BLOOD CELL COUNT (BEAKER) (test dnbh=474) 2.48 M/ L 4.63-6.08 HEMOGLOBIN (BEAKER) (test hsth=032) 7.8 GM/DL 13.7-17.5 HEMATOCRIT (BEAKER) (test xmcj=859) 22.7 % 40.1-51.0 MEAN CORPUSCULAR VOLUME (BEAKER) (test ywku=490) 91.5 fL 79.0-92.2 MEAN CORPUSCULAR HEMOGLOBIN (BEAKER) (test 31.5 pg 25.7-32.2 czmf=707) MEAN CORPUSCULAR HEMOGLOBIN CONC (BEAKER) (test 34.4 GM/DL 32.3-36.5 ehge=032) RED CELL DISTRIBUTION WIDTH (BEAKER) (test 18.6 % 11.6-14.4 vixa=259) PLATELET COUNT (BEAKER) (test xfbs=428) 60 K/CU MM 150-450 MEAN PLATELET VOLUME (BEAKER) (test wkjn=616) 8.8 fL 9.4-12.4 NUCLEATED RED BLOOD CELLS (BEAKER) (test 0 /100 WBC 0-0 amga=839) NEUTROPHILS RELATIVE PERCENT (BEAKER) (test 61 % geqf=583) LYMPHOCYTES RELATIVE PERCENT (BEAKER) (test 9 % ucsz=348) MONOCYTES RELATIVE PERCENT (BEAKER) (test 21 % isfn=050) EOSINOPHILS RELATIVE PERCENT (BEAKER) (test 8 % upda=704) BASOPHILS RELATIVE PERCENT (BEAKER) (test 1 % kywv=546) NEUTROPHILS ABSOLUTE COUNT (BEAKER) (test 2.68 K/ L 1.78-5.38 snmz=074) LYMPHOCYTES ABSOLUTE COUNT (BEAKER) (test 0.38 K/ L 1.32-3.57 ukop=589) MONOCYTES ABSOLUTE COUNT (BEAKER) (test jjhy=298) 0.94 K/ L 0.30-0.82 EOSINOPHILS ABSOLUTE COUNT (BEAKER) (test 0.33 K/ L 0.04-0.54 btic=923) BASOPHILS ABSOLUTE COUNT (BEAKER) (test vlqj=796) 0.02 K/ L 0.01-0.08 IMMATURE GRANULOCYTES-RELATIVE PERCENT (BEAKER) 1 % 0-1 (test yyzz=1457) URINALYSIS W/ [id number] 06:18:00 Test Item Value Reference Range Comments COLOR (BEAKER) (test urjl=810) Dark Yellow CLARITY (BEAKER) (test cpaz=184) Clear SPECIFIC GRAVITY UA (BEAKER) (test hnji=717) 1.008 1.001-1.035 PH UA (BEAKER) (test cgly=134) 6.0 5.0-8.0 PROTEIN UA (BEAKER) (test kewh=317) Negative Negative GLUCOSE UA (BEAKER) (test nzvm=838) Negative Negative KETONES UA (BEAKER) (test hpxv=049) Negative Negative BILIRUBIN UA (BEAKER) (test niwd=734) Positive Negative BLOOD UA (BEAKER) (test yrix=254) Moderate Negative NITRITE UA (BEAKER) (test ejak=528) Negative Negative LEUKOCYTE ESTERASE UA (BEAKER) (test gbyz=552) Negative Negative UROBILINOGEN UA (BEAKER) (test abtu=322) 0.2 mg/dL 0.2-1.0 RBC UA (BEAKER) (test lpjt=263) 80 /HPF WBC UA (BEAKER) (test pzsz=969) 10 /HPF HYALINE CASTS (BEAKER) (test cjvx=424) 5 /LPF AMORPHOUS CRYSTALS (BEAKER) (test nmrg=2464) Rare SOURCE(BEAKER) (test jlzb=5819) CBC W/PLT COUNT & AUTO [id number] 00:00:00 Test Item Value Reference Range Comments WHITE BLOOD CELL COUNT (BEAKER) (test cgir=594) 3.7 K/ L 3.5-10.5 RED BLOOD CELL COUNT (BEAKER) (test rxfm=339) 2.20 M/ L 4.63-6.08 HEMOGLOBIN (BEAKER) (test irrl=435) 7.0 GM/DL 13.7-17.5 HEMATOCRIT (BEAKER) (test qdlc=362) 20.2 % 40.1-51.0 MEAN CORPUSCULAR VOLUME (BEAKER) (test iebe=382) 91.8 fL 79.0-92.2 MEAN CORPUSCULAR HEMOGLOBIN (BEAKER) (test 31.8 pg 25.7-32.2 rhgc=793) MEAN CORPUSCULAR HEMOGLOBIN CONC (BEAKER) (test 34.7 GM/DL 32.3-36.5 llky=431) RED CELL DISTRIBUTION WIDTH (BEAKER) (test 19.3 % 11.6-14.4 kzsw=563) PLATELET COUNT (BEAKER) (test zzxq=615) 63 K/CU MM 150-450 MEAN PLATELET VOLUME (BEAKER) (test kkxq=631) 9.1 fL 9.4-12.4 NUCLEATED RED BLOOD CELLS (BEAKER) (test 0 /100 WBC 0-0 czfn=881) NEUTROPHILS RELATIVE PERCENT (BEAKER) (test 62 % fdnu=202) LYMPHOCYTES RELATIVE PERCENT (BEAKER) (test 11 % qgmr=462) MONOCYTES RELATIVE PERCENT (BEAKER) (test 19 % bavg=153) EOSINOPHILS RELATIVE PERCENT (BEAKER) (test 7 % hsvd=549) BASOPHILS RELATIVE PERCENT (BEAKER) (test 1 % awhc=182) NEUTROPHILS ABSOLUTE COUNT (BEAKER) (test 2.29 K/ L 1.78-5.38 urfe=134) LYMPHOCYTES ABSOLUTE COUNT (BEAKER) (test 0.39 K/ L 1.32-3.57 kqol=389) MONOCYTES ABSOLUTE COUNT (BEAKER) (test xknu=181) 0.71 K/ L 0.30-0.82 EOSINOPHILS ABSOLUTE COUNT (BEAKER) (test 0.27 K/ L 0.04-0.54 kaja=894) BASOPHILS ABSOLUTE COUNT (BEAKER) (test ceqp=212) 0.02 K/ L 0.01-0.08 IMMATURE GRANULOCYTES-RELATIVE PERCENT (BEAKER) 1 % 0-1 (test ocsv=5729) PROTHROMBIN [id number] 22:52:00 Test Item Value Reference Range Comments PROTIME (BEAKER) (test xsnr=330) 25.6 seconds 11.7-14.7 INR (BEAKER) (test tscz=468) 2.3 <=5.9 RECOMMENDED COUMADIN/WARFARIN INR THERAPY RANGESSTANDARD DOSE: 2.0 - 3.0 Includes: PROPHYLAXIS forvenous thrombosis, systemic embolization; TREATMENT for venous thrombosis and/or pulmonary embolus.HIGH RISK: Target INR is 2.5-3.5 for patients with mechanical heart valves.[id number] 22:52:00 Test Item Value Reference Range Comments MAGNESIUM (BEAKER) (test ggmm=263) 1.3 mg/dL 1.6-2.6 BASIC METABOLIC [id number] 22:52:00 Test Item Value Reference Range Comments SODIUM (BEAKER) (test 124 meq/L 136-145 podj=489) POTASSIUM (BEAKER) (test 4.1 meq/L 3.5-5.1 hmlk=949) CHLORIDE (BEAKER) (test 99 meq/L 98-107 mtng=635) CO2 (BEAKER) (test 18 meq/L 22-29 kzvw=333) BLOOD UREA NITROGEN 16 mg/dL 7-21 (BEAKER) (test utgi=432) CREATININE (BEAKER) (test 0.97 mg/dL 0.57-1.25 kceg=029) GLUCOSE RANDOM (BEAKER) 99 mg/dL 70-105 (test jggn=158) CALCIUM (BEAKER) (test 8.7 mg/dL 8.4-10.2 buwx=034) EGFR (BEAKER) (test 81 mL/min/1.73 sq m ESTIMATED GFR IS NOT uzjw=2702) ACCURATE CREATININE CLEARANCE IN PREDICTING GLOMERULAR FILTRATION RATE. ESTIMATED GFR IS NOT APPLICABLE FOR DIALYSIS PATIENTS. Specimen markedly ictericHEPATIC FUNCTION [id number] 22:52:00 Test Item Value Reference Range Comments TOTAL PROTEIN (BEAKER) (test czbc=221) 5.3 gm/dL 6.0-8.3 ALBUMIN (BEAKER) (test qumx=9882) 2.8 g/dL 3.5-5.0 BILIRUBIN TOTAL (BEAKER) (test ysts=555) 12.7 mg/dL 0.2-1.2 BILIRUBIN DIRECT (BEAKER) (test bghl=961) 7.6 mg/dL 0.1-0.5 ALKALINE PHOSPHATASE (BEAKER) (test jyga=230) 93 U/L 40-150 AST (SGOT) (BEAKER) (test ques=468) 21 U/L 5-34 ALT (SGPT) (BEAKER) (test shhg=823) 9 U/L 6-55 Specimen markedly ictericALPHA FETOPROTEIN (AFP), TUMOR [id number] 16:39: 00 Test Item Value Reference Range Comments ALPHA-FETOPROTEIN (BEAKER) (test dcog=7885) 2.5 ng/mL <10.0 BASIC METABOLIC [id number] 15:53:00 Test Item Value Reference Range Comments SODIUM (BEAKER) (test 126 meq/L 136-145 lkhj=820) POTASSIUM (BEAKER) (test 5.1 meq/L 3.5-5.1 gjud=382) CHLORIDE (BEAKER) (test 101 meq/L 98-107 xxmo=414) CO2 (BEAKER) (test 19 meq/L 22-29 oist=432) BLOOD UREA NITROGEN 14 mg/dL 7-21 (BEAKER) (test icbo=696) CREATININE (BEAKER) (test 1.01 mg/dL 0.57-1.25 aase=955) GLUCOSE RANDOM (BEAKER) 104 mg/dL 70-105 (test rrsq=540) CALCIUM (BEAKER) (test 9.0 mg/dL 8.4-10.2 idxu=707) EGFR (BEAKER) (test 78 mL/min/1.73 sq m ESTIMATED GFR IS NOT rrwi=5746) ACCURATE CREATININE CLEARANCE IN PREDICTING GLOMERULAR FILTRATION RATE. ESTIMATED GFR IS NOT APPLICABLE FOR DIALYSIS PATIENTS. Specimen moderately ictericHEPATIC FUNCTION [id number] 15:53:00 Test Item Value Reference Range Comments TOTAL PROTEIN (BEAKER) (test pvvz=656) 6.1 gm/dL 6.0-8.3 ALBUMIN (BEAKER) (test bpex=1172) 2.6 g/dL 3.5-5.0 BILIRUBIN TOTAL (BEAKER) (test xarx=473) 10.4 mg/dL 0.2-1.2 BILIRUBIN DIRECT (BEAKER) (test vrwx=593) 7.5 mg/dL 0.1-0.5 ALKALINE PHOSPHATASE (BEAKER) (test cfxa=806) 124 U/L 40-150 AST (SGOT) (BEAKER) (test eokw=112) 29 U/L 5-34 ALT (SGPT) (BEAKER) (test imfh=935) 12 U/L 6-55 Specimen moderately ictericGAMMA GLUTAMYL TRANSFERASE (GGT)[id number] 15:53:00 Test Item Value Reference Range Comments GAMMA GLUTAMYL TRANSFERASE (BEAKER) (test xctx=781) 17 U/L 9-64 Specimen moderately ictericPROTHROMBIN [id number] 15:40:00 Test Item Value Reference Range Comments PROTIME (BEAKER) (test fpxx=798) 22.6 seconds 11.7-14.7 INR (BEAKER) (test jztw=899) 2.0 <=5.9 RECOMMENDED COUMADIN/WARFARIN INR THERAPY RANGESSTANDARD DOSE: 2.0 - 3.0 Includes: PROPHYLAXIS forvenous thrombosis, systemic embolization; TREATMENT for venous thrombosis and/or pulmonary embolus.HIGH RISK: Target INR is 2.5-3.5 for patients with mechanical heart valves.CBC W/PLT COUNT & AUTO [id number] 15:38:00 Test Item Value Reference Range Comments WHITE BLOOD CELL COUNT (BEAKER) (test atey=518) 7.3 K/ L 3.5-10.5 RED BLOOD CELL COUNT (BEAKER) (test zcyp=424) 2.78 M/ L 4.63-6.08 HEMOGLOBIN (BEAKER) (test thcd=270) 9.1 GM/DL 13.7-17.5 HEMATOCRIT (BEAKER) (test mqza=220) 27.3 % 40.1-51.0 MEAN CORPUSCULAR VOLUME (BEAKER) (test tzku=202) 98.2 fL 79.0-92.2 MEAN CORPUSCULAR HEMOGLOBIN (BEAKER) (test 32.7 pg 25.7-32.2 ovzz=935) MEAN CORPUSCULAR HEMOGLOBIN CONC (BEAKER) (test 33.3 GM/DL 32.3-36.5 skrq=271) RED CELL DISTRIBUTION WIDTH (BEAKER) (test 16.4 % 11.6-14.4 wogg=397) PLATELET COUNT (BEAKER) (test dbvk=729) 71 K/CU MM 150-450 MEAN PLATELET VOLUME (BEAKER) (test pasc=071) 9.1 fL 9.4-12.4 NUCLEATED RED BLOOD CELLS (BEAKER) (test 0 /100 WBC 0-0 qzap=737) NEUTROPHILS RELATIVE PERCENT (BEAKER) (test 71 % jlph=495) LYMPHOCYTES RELATIVE PERCENT (BEAKER) (test 8 % czds=051) MONOCYTES RELATIVE PERCENT (BEAKER) (test 15 % vcen=942) EOSINOPHILS RELATIVE PERCENT (BEAKER) (test 5 % btnn=835) BASOPHILS RELATIVE PERCENT (BEAKER) (test 0 % qxem=237) NEUTROPHILS ABSOLUTE COUNT (BEAKER) (test 5.13 K/ L 1.78-5.38 ylgd=230) LYMPHOCYTES ABSOLUTE COUNT (BEAKER) (test 0.59 K/ L 1.32-3.57 yffu=565) MONOCYTES ABSOLUTE COUNT (BEAKER) (test wcpr=733) 1.06 K/ L 0.30-0.82 EOSINOPHILS ABSOLUTE COUNT (BEAKER) (test 0.33 K/ L 0.04-0.54 jlbz=183) BASOPHILS ABSOLUTE COUNT (BEAKER) (test pfqq=632) 0.03 K/ L 0.01-0.08 IMMATURE GRANULOCYTES-RELATIVE PERCENT (BEAKER) 2 % 0-1 (test aczp=5671) FUNGUS CULTURE + [id number] 07:22:00 Test Item Value Reference Range Comments CULTURE (BEAKER) (test No fungus isolated in 28 days wigq=1184) FUNGUS SMEAR (BEAKER) (test No fungi seen hcaw=6465) HISTOPLASMA ANTIGEN, [id number] 08:01:00 Test Item Value Reference Range Comments SCAN RESULT (test zbvr=[id number]) TISSUE [id number] 10:58:00 Test Item Value Reference Range Comments LAB AP CPT CODE (BEAKER) (test gdie=5500) 25199 BLOOD [id number] 16:15:00 Test Item Value Reference Range Comments CULTURE (BEAKER) (test gixl=1408) No growth in 5 days BLOOD [id number] 16:15:00 Test Item Value Reference Range Comments CULTURE (BEAKER) (test txzq=8481) No growth in 5 days [id number] 06:54:00 Test Item Value Reference Range Comments PHOSPHORUS (BEAKER) (test bxcs=435) 3.3 mg/dL 2.3-4.7 [id number] 06:54:00 Test Item Value Reference Range Comments MAGNESIUM (BEAKER) (test hwzn=052) 1.2 mg/dL 1.6-2.6 BASIC METABOLIC [id number] 06:54:00 Test Item Value Reference Range Comments SODIUM (BEAKER) (test 133 meq/L 136-145 bffp=272) POTASSIUM (BEAKER) (test 3.6 meq/L 3.5-5.1 gobq=975) CHLORIDE (BEAKER) (test 108 meq/L 98-107 zstv=699) CO2 (BEAKER) (test 17 meq/L 22-29 akrs=006) BLOOD UREA NITROGEN 13 mg/dL 7-21 (BEAKER) (test kphn=891) CREATININE (BEAKER) (test 1.16 mg/dL 0.57-1.25 hgeo=419) GLUCOSE RANDOM (BEAKER) 82 mg/dL 70-105 (test yojz=252) CALCIUM (BEAKER) (test 8.0 mg/dL 8.4-10.2 bhaa=472) EGFR (BEAKER) (test 66 mL/min/1.73 sq m ESTIMATED GFR IS NOT jglr=9913) ACCURATE CREATININE CLEARANCE IN PREDICTING GLOMERULAR FILTRATION RATE. ESTIMATED GFR IS NOT APPLICABLE FOR DIALYSIS PATIENTS. Specimen moderately ictericHEPATIC FUNCTION [id number] 06:54:00 Test Item Value Reference Range Comments TOTAL PROTEIN (BEAKER) (test ycbw=361) 5.7 gm/dL 6.0-8.3 ALBUMIN (BEAKER) (test euzo=1210) 3.1 g/dL 3.5-5.0 BILIRUBIN TOTAL (BEAKER) (test strr=163) 5.2 mg/dL 0.2-1.2 BILIRUBIN DIRECT (BEAKER) (test jadm=935) 2.6 mg/dL 0.1-0.5 ALKALINE PHOSPHATASE (BEAKER) (test wksx=718) 55 U/L 40-150 AST (SGOT) (BEAKER) (test veeg=523) 32 U/L 5-34 ALT (SGPT) (BEAKER) (test qvry=496) 9 U/L 6-55 Specimen moderately ictericCALCIUM, [id number] 06:30:00 Test Item Value Reference Range Comments CALCIUM IONIZED (BEAKER) (test csbm=334) 1.00 mmol/L 1.12-1.27 PH, BLOOD (BEAKER) (test bipj=8636) 7.52 CBC W/PLT COUNT & AUTO [id number] 06:17:00 Test Item Value Reference Range Comments WHITE BLOOD CELL COUNT (BEAKER) (test ujqf=821) 4.7 K/ L 4.0-10.0 RED BLOOD CELL COUNT (BEAKER) (test equl=596) 2.05 M/ L 4.20-5.80 HEMOGLOBIN (BEAKER) (test fwqs=426) 7.1 GM/DL 13.0-16.8 HEMATOCRIT (BEAKER) (test hupc=786) 21.1 % 40.0-50.0 MEAN CORPUSCULAR VOLUME (BEAKER) (test rqjf=985) 103.0 fL 82.0-98.0 MEAN CORPUSCULAR HEMOGLOBIN (BEAKER) (test 34.8 pg 27.0-33.0 kesy=474) MEAN CORPUSCULAR HEMOGLOBIN CONC (BEAKER) (test 33.8 GM/DL 32.0-36.0 viwu=925) RED CELL DISTRIBUTION WIDTH (BEAKER) (test 13.9 % 10.3-14.2 qmnn=440) PLATELET COUNT (BEAKER) (test mjkh=561) 71 K/CU MM 150-430 MEAN PLATELET VOLUME (BEAKER) (test jyao=899) 6.6 fL 6.5-10.5 NUCLEATED RED BLOOD CELLS (BEAKER) (test 0 /100 WBC 0-0 fvhf=819) NEUTROPHILS RELATIVE PERCENT (BEAKER) (test 68 % iwrd=825) LYMPHOCYTES RELATIVE PERCENT (BEAKER) (test 16 % skcp=795) MONOCYTES RELATIVE PERCENT (BEAKER) (test 12 % xmuc=979) EOSINOPHILS RELATIVE PERCENT (BEAKER) (test 4 % bvon=579) BASOPHILS RELATIVE PERCENT (BEAKER) (test 1 % jjvm=922) NEUTROPHILS ABSOLUTE COUNT (BEAKER) (test 3.21 K/ L 1.80-8.00 ultz=163) LYMPHOCYTES ABSOLUTE COUNT (BEAKER) (test 0.75 K/ L 1.48-4.50 rfpz=044) MONOCYTES ABSOLUTE COUNT (BEAKER) (test jfoc=634) 0.57 K/ L 0.00-1.30 EOSINOPHILS ABSOLUTE COUNT (BEAKER) (test 0.19 K/ L 0.00-0.50 uyfx=156) BASOPHILS ABSOLUTE COUNT (BEAKER) (test zszo=405) 0.03 K/ L 0.00-0.20 0.00PROTHROMBIN [id number] 05:56:00 Test Item Value Reference Range Comments PROTIME (BEAKER) (test vezv=160) 26.4 seconds 11.7-14.7 INR (BEAKER) (test vrkb=785) 2.4 <=5.9 RECOMMENDED COUMADIN/WARFARIN INR THERAPY RANGESSTANDARD DOSE: 2.0 - 3.0 Includes: PROPHYLAXIS forvenous thrombosis, systemic embolization; TREATMENT for venous thrombosis and/or pulmonary embolus.HIGH RISK: Target INR is 2.5-3.5 for patients with mechanical heart valves.BASIC METABOLIC [id number] 04:44: 00 Test Item Value Reference Range Comments SODIUM (BEAKER) (test 134 meq/L 136-145 fuwv=519) POTASSIUM (BEAKER) (test 3.6 meq/L 3.5-5.1 zygs=189) CHLORIDE (BEAKER) (test 108 meq/L 98-107 npfk=280) CO2 (BEAKER) (test 19 meq/L 22-29 lqom=167) BLOOD UREA NITROGEN 12 mg/dL 7-21 (BEAKER) (test cooo=091) CREATININE (BEAKER) (test 1.32 mg/dL 0.57-1.25 gmzn=714) GLUCOSE RANDOM (BEAKER) 82 mg/dL 70-105 (test qvzi=497) CALCIUM (BEAKER) (test 7.9 mg/dL 8.4-10.2 drpe=204) EGFR (BEAKER) (test 57 mL/min/1.73 sq m ESTIMATED GFR IS NOT cvdl=1569) ACCURATE CREATININE CLEARANCE IN PREDICTING GLOMERULAR FILTRATION RATE. ESTIMATED GFR IS NOT APPLICABLE FOR DIALYSIS PATIENTS. Specimen moderately ictericHEPATIC FUNCTION [id number] 04:42:00 Test Item Value Reference Range Comments TOTAL PROTEIN (BEAKER) (test mlug=516) 5.8 gm/dL 6.0-8.3 ALBUMIN (BEAKER) (test xshc=8849) 3.1 g/dL 3.5-5.0 BILIRUBIN TOTAL (BEAKER) (test szro=848) 5.1 mg/dL 0.2-1.2 BILIRUBIN DIRECT (BEAKER) (test dlbf=207) 2.7 mg/dL 0.1-0.5 ALKALINE PHOSPHATASE (BEAKER) (test tgzf=830) 51 U/L 40-150 AST (SGOT) (BEAKER) (test tfll=614) 27 U/L 5-34 ALT (SGPT) (BEAKER) (test vemr=907) 7 U/L 6-55 Specimen moderately ictericCBC W/PLT COUNT & AUTO [id number] 04: 35:00 Test Item Value Reference Range Comments WHITE BLOOD CELL COUNT (BEAKER) (test hibr=361) 4.6 K/ L 4.0-10.0 RED BLOOD CELL COUNT (BEAKER) (test xnzu=786) 2.06 M/ L 4.20-5.80 HEMOGLOBIN (BEAKER) (test bjcm=299) 7.2 GM/DL 13.0-16.8 HEMATOCRIT (BEAKER) (test rrer=178) 21.5 % 40.0-50.0 MEAN CORPUSCULAR VOLUME (BEAKER) (test apug=243) 104.0 fL 82.0-98.0 MEAN CORPUSCULAR HEMOGLOBIN (BEAKER) (test 35.0 pg 27.0-33.0 idwm=348) MEAN CORPUSCULAR HEMOGLOBIN CONC (BEAKER) (test 33.6 GM/DL 32.0-36.0 qbqk=898) RED CELL DISTRIBUTION WIDTH (BEAKER) (test 13.4 % 10.3-14.2 bmqd=936) PLATELET COUNT (BEAKER) (test ebkl=305) 76 K/CU MM 150-430 MEAN PLATELET VOLUME (BEAKER) (test dlcq=292) 6.5 fL 6.5-10.5 NUCLEATED RED BLOOD CELLS (BEAKER) (test 0 /100 WBC 0-0 vnat=532) NEUTROPHILS RELATIVE PERCENT (BEAKER) (test 64 % vupz=058) LYMPHOCYTES RELATIVE PERCENT (BEAKER) (test 16 % hxcx=827) MONOCYTES RELATIVE PERCENT (BEAKER) (test 16 % vigk=395) EOSINOPHILS RELATIVE PERCENT (BEAKER) (test 4 % dksm=396) BASOPHILS RELATIVE PERCENT (BEAKER) (test 1 % fycy=396) NEUTROPHILS ABSOLUTE COUNT (BEAKER) (test 2.89 K/ L 1.80-8.00 kwea=773) LYMPHOCYTES ABSOLUTE COUNT (BEAKER) (test 0.72 K/ L 1.48-4.50 mzhw=190) MONOCYTES ABSOLUTE COUNT (BEAKER) (test abkz=710) 0.71 K/ L 0.00-1.30 EOSINOPHILS ABSOLUTE COUNT (BEAKER) (test 0.20 K/ L 0.00-0.50 zewj=509) BASOPHILS ABSOLUTE COUNT (BEAKER) (test wfbn=916) 0.03 K/ L 0.00-0.20 0.00PROTHROMBIN [id number] 04:33:00 Test Item Value Reference Range Comments PROTIME (BEAKER) (test udyv=557) 30.2 seconds 11.7-14.7 INR (BEAKER) (test niro=541) 2.9 <=5.9 RECOMMENDED COUMADIN/WARFARIN INR THERAPY RANGESSTANDARD DOSE: 2.0 - 3.0 Includes: PROPHYLAXIS forvenous thrombosis, systemic embolization; TREATMENT for venous thrombosis and/or pulmonary embolus.HIGH RISK: Target INR is 2.5-3.5 for patients with mechanical heart valves.VANCOMYCIN LEVEL, [id number] 17: 04:00 Test Item Value Reference Range Comments VANCOMYCIN TROUGH (BEAKER) (test uese=594) 12.2 ug/mL 10.0-20.0 URINE [id number] 14:25:00 Test Item Value Reference Range Comments CULTURE (BEAKER) (test xkqp=0971) No growth TSH/FREE T4 IF [id number] 14:22:00 Test Item Value Reference Range Comments THYROID STIMULATING HORMONE (BEAKER) (test 3.53 uIU/mL 0.35-4.94 kqvk=239) URINE [id number] 11:43:00 Test Item Value Reference Range Comments CULTURE (BEAKER) (test wzey=4543) No growth CBC W/PLT COUNT & AUTO [id number] 07:55:00 Test Item Value Reference Range Comments WHITE BLOOD CELL COUNT (BEAKER) (test rokp=874) 4.5 K/ L 4.0-10.0 RED BLOOD CELL COUNT (BEAKER) (test zbar=501) 2.06 M/ L 4.20-5.80 HEMOGLOBIN (BEAKER) (test ieey=334) 7.1 GM/DL 13.0-16.8 HEMATOCRIT (BEAKER) (test soid=563) 21.5 % 40.0-50.0 MEAN CORPUSCULAR VOLUME (BEAKER) (test idiw=991) 104.0 fL 82.0-98.0 MEAN CORPUSCULAR HEMOGLOBIN (BEAKER) (test 34.5 pg 27.0-33.0 cuau=948) MEAN CORPUSCULAR HEMOGLOBIN CONC (BEAKER) (test 33.1 GM/DL 32.0-36.0 znee=441) RED CELL DISTRIBUTION WIDTH (BEAKER) (test 13.4 % 10.3-14.2 tgii=953) PLATELET COUNT (BEAKER) (test uzsl=563) 79 K/CU MM 150-430 MEAN PLATELET VOLUME (BEAKER) (test pced=235) 6.8 fL 6.5-10.5 NUCLEATED RED BLOOD CELLS (BEAKER) (test 0 /100 WBC 0-0 uwle=901) NEUTROPHILS RELATIVE PERCENT (BEAKER) (test 64 % icgx=184) LYMPHOCYTES RELATIVE PERCENT (BEAKER) (test 16 % tlkz=139) MONOCYTES RELATIVE PERCENT (BEAKER) (test 15 % crke=955) EOSINOPHILS RELATIVE PERCENT (BEAKER) (test 5 % yfwd=411) BASOPHILS RELATIVE PERCENT (BEAKER) (test 0 % yqao=297) NEUTROPHILS ABSOLUTE COUNT (BEAKER) (test 2.88 K/ L 1.80-8.00 mtcm=877) LYMPHOCYTES ABSOLUTE COUNT (BEAKER) (test 0.73 K/ L 1.48-4.50 hpps=904) MONOCYTES ABSOLUTE COUNT (BEAKER) (test jwey=360) 0.68 K/ L 0.00-1.30 EOSINOPHILS ABSOLUTE COUNT (BEAKER) (test 0.23 K/ L 0.00-0.50 ejcj=995) BASOPHILS ABSOLUTE COUNT (BEAKER) (test uies=588) 0.02 K/ L 0.00-0.20 [facility]00[facility] [id number] 05:58:00 Test Item Value Reference Range Comments SODIUM (BEAKER) (test 137 meq/L 136-145 zcyz=323) POTASSIUM (BEAKER) (test 3.7 meq/L 3.5-5.1 sfjl=723) CHLORIDE (BEAKER) (test 110 meq/L 98-107 odgp=802) CO2 (BEAKER) (test 19 meq/L 22-29 drkm=495) BLOOD UREA NITROGEN 12 mg/dL 7-21 (BEAKER) (test qohn=110) CREATININE (BEAKER) (test 1.29 mg/dL 0.57-1.25 ggif=868) GLUCOSE RANDOM (BEAKER) 80 mg/dL 70-105 (test wfno=580) CALCIUM (BEAKER) (test 8.1 mg/dL 8.4-10.2 brxs=084) EGFR (BEAKER) (test 59 mL/min/1.73 sq m ESTIMATED GFR IS NOT zqly=5511) ACCURATE CREATININE CLEARANCE IN PREDICTING GLOMERULAR FILTRATION RATE. ESTIMATED GFR IS NOT APPLICABLE FOR DIALYSIS PATIENTS. Specimen moderately ictericHEPATIC FUNCTION [id number] 05:58:00 Test Item Value Reference Range Comments TOTAL PROTEIN (BEAKER) (test qyjv=315) 5.9 gm/dL 6.0-8.3 ALBUMIN (BEAKER) (test braj=0925) 3.4 g/dL 3.5-5.0 BILIRUBIN TOTAL (BEAKER) (test qcgs=543) 5.6 mg/dL 0.2-1.2 BILIRUBIN DIRECT (BEAKER) (test lpfe=251) 2.6 mg/dL 0.1-0.5 ALKALINE PHOSPHATASE (BEAKER) (test ectx=351) 50 U/L 40-150 AST (SGOT) (BEAKER) (test saez=176) 30 U/L 5-34 ALT (SGPT) (BEAKER) (test tsit=232) 9 U/L 6-55 Specimen moderately ictericPROTHROMBIN [id number] 05:31:00 Test Item Value Reference Range Comments PROTIME (BEAKER) (test rmxs=091) 29.0 seconds 11.7-14.7 INR (BEAKER) (test xcwz=206) 2.7 <=5.9 RECOMMENDED COUMADIN/WARFARIN INR THERAPY RANGESSTANDARD DOSE: 2.0 - 3.0 Includes: PROPHYLAXIS forvenous thrombosis, systemic embolization; TREATMENT for venous thrombosis and/or pulmonary embolus.HIGH RISK: Target INR is 2.5-3.5 for patients with mechanical heart valves.ANAEROBIC [id number] 05:15:00 Test Item Value Reference Range Comments CULTURE (BEAKER) (test jklw=2005) No anaerobes isolated BLOOD [id number] 00:00:00 Test Item Value Reference Range Comments CULTURE (BEAKER) (test sjfc=3962) No growth in 5 days BLOOD [id number] 00:00:00 Test Item Value Reference Range Comments CULTURE (BEAKER) (test nsmq=3593) No growth in 5 days URINALYSIS W/ REFLEX URINE [id number] 08:28:00 Test Item Value Reference Range Comments COLOR (BEAKER) (test ggis=892) Yellow CLARITY (BEAKER) (test kbhj=352) Clear SPECIFIC GRAVITY UA (BEAKER) (test deon=258) 1.006 1.001-1.035 PH UA (BEAKER) (test cbjn=315) 6.5 5.0-8.0 PROTEIN UA (BEAKER) (test qwqa=895) Negative Negative GLUCOSE UA (BEAKER) (test nxij=564) Negative Negative KETONES UA (BEAKER) (test qypo=997) Negative Negative BILIRUBIN UA (BEAKER) (test ulbn=522) Negative Negative BLOOD UA (BEAKER) (test nwrh=913) Negative Negative NITRITE UA (BEAKER) (test iplf=092) Negative Negative LEUKOCYTE ESTERASE UA (BEAKER) (test otie=801) Small Negative UROBILINOGEN UA (BEAKER) (test zhht=728) 0.2 mg/dL 0.2-1.0 RBC UA (BEAKER) (test ctpw=644) 1 /HPF WBC UA (BEAKER) (test xwem=678) 6 /HPF BACTERIA (BEAKER) (test ayra=131) Rare SOURCE(BEAKER) (test rjga=1838) CBC W/PLT COUNT & AUTO [id number] 07:21:00 Test Item Value Reference Range Comments WHITE BLOOD CELL COUNT (BEAKER) (test khkl=445) 5.9 K/ L 4.0-10.0 RED BLOOD CELL COUNT (BEAKER) (test dyzk=283) 2.12 M/ L 4.20-5.80 HEMOGLOBIN (BEAKER) (test dgah=945) 7.3 GM/DL 13.0-16.8 HEMATOCRIT (BEAKER) (test alab=972) 22.2 % 40.0-50.0 MEAN CORPUSCULAR VOLUME (BEAKER) (test ncxk=484) 105.0 fL 82.0-98.0 MEAN CORPUSCULAR HEMOGLOBIN (BEAKER) (test 34.2 pg 27.0-33.0 mhgv=016) MEAN CORPUSCULAR HEMOGLOBIN CONC (BEAKER) (test 32.7 GM/DL 32.0-36.0 jjvv=166) RED CELL DISTRIBUTION WIDTH (BEAKER) (test 13.1 % 10.3-14.2 xttz=020) PLATELET COUNT (BEAKER) (test ojjf=567) 80 K/CU MM 150-430 MEAN PLATELET VOLUME (BEAKER) (test qpmx=297) 6.5 fL 6.5-10.5 NUCLEATED RED BLOOD CELLS (BEAKER) (test 0 /100 WBC 0-0 uihf=028) NEUTROPHILS RELATIVE PERCENT (BEAKER) (test 67 % clvc=419) LYMPHOCYTES RELATIVE PERCENT (BEAKER) (test 14 % pbij=645) MONOCYTES RELATIVE PERCENT (BEAKER) (test 14 % rzlp=229) EOSINOPHILS RELATIVE PERCENT (BEAKER) (test 4 % zmwe=563) BASOPHILS RELATIVE PERCENT (BEAKER) (test 0 % cbox=394) NEUTROPHILS ABSOLUTE COUNT (BEAKER) (test 3.97 K/ L 1.80-8.00 toqw=111) LYMPHOCYTES ABSOLUTE COUNT (BEAKER) (test 0.85 K/ L 1.48-4.50 bkdq=856) MONOCYTES ABSOLUTE COUNT (BEAKER) (test frqf=569) 0.81 K/ L 0.00-1.30 EOSINOPHILS ABSOLUTE COUNT (BEAKER) (test 0.25 K/ L 0.00-0.50 ujxs=767) BASOPHILS ABSOLUTE COUNT (BEAKER) (test ezkk=449) 0.03 K/ L 0.00-0.20 [id number] 06:35:00 Test Item Value Reference Range Comments PHOSPHORUS (BEAKER) (test mwjv=550) 3.5 mg/dL 2.3-4.7 [id number] 06:35:00 Test Item Value Reference Range Comments MAGNESIUM (BEAKER) (test vvup=576) 1.7 mg/dL 1.6-2.6 BASIC METABOLIC [id number] 06:35:00 Test Item Value Reference Range Comments SODIUM (BEAKER) (test 137 meq/L 136-145 mfue=603) POTASSIUM (BEAKER) (test 4.0 meq/L 3.5-5.1 hylr=515) CHLORIDE (BEAKER) (test 109 meq/L 98-107 dlsc=804) CO2 (BEAKER) (test 20 meq/L 22-29 hskm=662) BLOOD UREA NITROGEN 13 mg/dL 7-21 (BEAKER) (test uwtu=220) CREATININE (BEAKER) (test 1.56 mg/dL 0.57-1.25 wdfo=374) GLUCOSE RANDOM (BEAKER) 85 mg/dL 70-105 (test hfha=564) CALCIUM (BEAKER) (test 8.4 mg/dL 8.4-10.2 voam=856) EGFR (BEAKER) (test 47 mL/min/1.73 sq m ESTIMATED GFR IS NOT wtit=3274) ACCURATE CREATININE CLEARANCE IN PREDICTING GLOMERULAR FILTRATION RATE. ESTIMATED GFR IS NOT APPLICABLE FOR DIALYSIS PATIENTS. Specimen moderately ictericHEPATIC FUNCTION [id number] 06:35:00 Test Item Value Reference Range Comments TOTAL PROTEIN (BEAKER) (test jeig=038) 6.5 gm/dL 6.0-8.3 ALBUMIN (BEAKER) (test zmra=1611) 3.8 g/dL 3.5-5.0 BILIRUBIN TOTAL (BEAKER) (test efja=449) 6.1 mg/dL 0.2-1.2 BILIRUBIN DIRECT (BEAKER) (test uvdr=435) 2.9 mg/dL 0.1-0.5 ALKALINE PHOSPHATASE (BEAKER) (test hurb=427) 54 U/L 40-150 AST (SGOT) (BEAKER) (test otoh=122) 28 U/L 5-34 ALT (SGPT) (BEAKER) (test egme=811) 7 U/L 6-55 Specimen moderately ictericPROTHROMBIN [id number] 06:06:00 Test Item Value Reference Range Comments PROTIME (BEAKER) (test lbpg=256) 26.1 seconds 11.7-14.7 INR (BEAKER) (test vzcp=875) 2.4 <=5.9 RECOMMENDED COUMADIN/WARFARIN INR THERAPY RANGESSTANDARD DOSE: 2.0 - 3.0 Includes: PROPHYLAXIS forvenous thrombosis, systemic embolization; TREATMENT for venous thrombosis and/or pulmonary embolus.HIGH RISK: Target INR is 2.5-3.5 for patients with mechanical heart valves.CALCIUM, [id number] 06:06:00 Test Item Value Reference Range Comments CALCIUM IONIZED (BEAKER) (test hzsk=448) 1.06 mmol/L 1.12-1.27 PH, BLOOD (BEAKER) (test xutg=8615) 7.46 SURGICALLY OBTAINED CULTURE + GRAM [id number] 23:51:00 Test Item Value Reference Range Comments CULTURE (BEAKER) (test ixqv=4052) No growth GRAM STAIN RESULT (BEAKER) (test 1+ WBCs hntx=5829) GRAM STAIN RESULT (BEAKER) (test No organisms seen ojbv=52860) BODY FLUID CULTURE + GRAM [id number] 23:42:00 Test Item Value Reference Range Comments CULTURE (BEAKER) (test zlln=1808) No growth GRAM STAIN RESULT (BEAKER) (test 1+ WBCs yrnz=4858) GRAM STAIN RESULT (BEAKER) (test No organisms seen qpca=61214) BODY FLUID CELL COUNT WITH [id number] 19:59:00 Test Item Value Reference Range Comments APPEARANCE FLUID (BEAKER) (test zgox=952) Hazy Clear COLOR FLUID (BEAKER) (test ewaa=216) Yellow Colorless, Straw RBC FLUID (BEAKER) (test dxme=394) 2435 /cu mm <=1 ADJUSTED WBC FLUID (BEAKER) (test fgtq=4336) 441 /cu mm <=5 LINING CELLS (BEAKER) (test bpoj=7028) 9 /cu mm <=1 NEUTROPHILS FLUID (BEAKER) (test npln=6670) 16 % LYMPHS FLUID (BEAKER) (test qhwk=748) 10 % MONO/MACROPHAGE FLUID (BEAKER) (test qpis=984) 74 % EOSINOPHILS FLUID (BEAKER) (test vkoo=840) 0 % BASO FLUID (BEAKER) (test mvdd=634) 0 % CONTAINER BODY FLUID (BEAKER) (test thuq=6243) EDTA Tube [id number] 11:01:00 Test Item Value Reference Range Comments PROCALCITONIN (BEAKER) (test ckwv=4856) 0.25 ng/mL <0.05 SEPSIS RISK (ng/mL)Low: 0.05-0.50Intermediate: 0.51-2.00High: & gt;=2.01CBC W/PLT COUNT & AUTO [id number] 08:40:00 Test Item Value Reference Range Comments WHITE BLOOD CELL COUNT (BEAKER) (test bzjx=104) 6.3 K/ L 4.0-10.0 RED BLOOD CELL COUNT (BEAKER) (test ldbj=528) 2.07 M/ L 4.20-5.80 HEMOGLOBIN (BEAKER) (test tfzx=627) 7.1 GM/DL 13.0-16.8 HEMATOCRIT (BEAKER) (test xalx=316) 21.9 % 40.0-50.0 MEAN CORPUSCULAR VOLUME (BEAKER) (test dxxb=676) 106.0 fL 82.0-98.0 MEAN CORPUSCULAR HEMOGLOBIN (BEAKER) (test 34.1 pg 27.0-33.0 zkto=752) MEAN CORPUSCULAR HEMOGLOBIN CONC (BEAKER) (test 32.2 GM/DL 32.0-36.0 pxjj=354) RED CELL DISTRIBUTION WIDTH (BEAKER) (test 13.1 % 10.3-14.2 lvlr=199) PLATELET COUNT (BEAKER) (test jqjf=819) 78 K/CU MM 150-430 MEAN PLATELET VOLUME (BEAKER) (test ldxv=960) 6.6 fL 6.5-10.5 NUCLEATED RED BLOOD CELLS (BEAKER) (test 0 /100 WBC 0-0 life=440) NEUTROPHILS RELATIVE PERCENT (BEAKER) (test 73 % tovc=333) LYMPHOCYTES RELATIVE PERCENT (BEAKER) (test 10 % zinc=247) MONOCYTES RELATIVE PERCENT (BEAKER) (test 13 % sqjs=427) EOSINOPHILS RELATIVE PERCENT (BEAKER) (test 4 % fzjx=094) BASOPHILS RELATIVE PERCENT (BEAKER) (test 0 % ipgp=167) NEUTROPHILS ABSOLUTE COUNT (BEAKER) (test 4.60 K/ L 1.80-8.00 bizd=965) LYMPHOCYTES ABSOLUTE COUNT (BEAKER) (test 0.64 K/ L 1.48-4.50 svaw=420) MONOCYTES ABSOLUTE COUNT (BEAKER) (test vglv=473) 0.81 K/ L 0.00-1.30 EOSINOPHILS ABSOLUTE COUNT (BEAKER) (test 0.23 K/ L 0.00-0.50 svhx=212) BASOPHILS ABSOLUTE COUNT (BEAKER) (test clxl=666) 0.01 K/ L 0.00-0.20 [id number] 06:50:00 Test Item Value Reference Range Comments PHOSPHORUS (BEAKER) (test yhbv=713) 3.0 mg/dL 2.3-4.7 [id number] 06:50:00 Test Item Value Reference Range Comments MAGNESIUM (BEAKER) (test glrx=103) 1.9 mg/dL 1.6-2.6 BASIC METABOLIC [id number] 06:50:00 Test Item Value Reference Range Comments SODIUM (BEAKER) (test 135 meq/L 136-145 dyfy=892) POTASSIUM (BEAKER) (test 4.2 meq/L 3.5-5.1 hoef=576) CHLORIDE (BEAKER) (test 106 meq/L 98-107 ithu=504) CO2 (BEAKER) (test 21 meq/L 22-29 hmwx=033) BLOOD UREA NITROGEN 19 mg/dL 7-21 (BEAKER) (test wuon=555) CREATININE (BEAKER) (test 1.62 mg/dL 0.57-1.25 gdrg=964) GLUCOSE RANDOM (BEAKER) 98 mg/dL 70-105 (test puev=051) CALCIUM (BEAKER) (test 8.6 mg/dL 8.4-10.2 rgcv=539) EGFR (BEAKER) (test 45 mL/min/1.73 sq m ESTIMATED GFR IS NOT uamf=2827) ACCURATE CREATININE CLEARANCE IN PREDICTING GLOMERULAR FILTRATION RATE. ESTIMATED GFR IS NOT APPLICABLE FOR DIALYSIS PATIENTS. Specimen moderately ictericHEPATIC FUNCTION [id number] 06:50:00 Test Item Value Reference Range Comments TOTAL PROTEIN (BEAKER) (test mzwz=775) 6.3 gm/dL 6.0-8.3 ALBUMIN (BEAKER) (test ezov=1823) 3.7 g/dL 3.5-5.0 BILIRUBIN TOTAL (BEAKER) (test vqja=033) 6.2 mg/dL 0.2-1.2 BILIRUBIN DIRECT (BEAKER) (test buqa=024) 2.8 mg/dL 0.1-0.5 ALKALINE PHOSPHATASE (BEAKER) (test buzf=721) 54 U/L 40-150 AST (SGOT) (BEAKER) (test bzhw=545) 29 U/L 5-34 ALT (SGPT) (BEAKER) (test mbno=784) 8 U/L 6-55 Specimen moderately ictericCALCIUM, [id number] 06:48:00 Test Item Value Reference Range Comments CALCIUM IONIZED (BEAKER) (test syfj=720) 1.12 mmol/L 1.12-1.27 PH, BLOOD (BEAKER) (test rgyw=8013) 7.33 PROTHROMBIN TIME/[id number] 06:24:00 Test Item Value Reference Range Comments PROTIME (BEAKER) (test dubo=081) 25.4 seconds 11.7-14.7 INR (BEAKER) (test ogsi=709) 2.3 <=5.9 RECOMMENDED COUMADIN/WARFARIN INR THERAPY RANGESSTANDARD DOSE: 2.0 - 3.0 Includes: PROPHYLAXIS forvenous thrombosis, systemic embolization; TREATMENT for venous thrombosis and/or pulmonary embolus.HIGH RISK: Target INR is 2.5-3.5 for patients with mechanical heart valves.[id number] 11:17:00 Test Item Value Reference Range Comments FIBRINOGEN LEVEL (BEAKER) (test ruvc=598) 115 mg/dl 225-434 CALCIUM, [id number] 06:04:00 Test Item Value Reference Range Comments CALCIUM IONIZED (BEAKER) (test jdxe=282) 1.08 mmol/L 1.12-1.27 PH, BLOOD (BEAKER) (test rqel=8399) 7.41 CBC W/PLT COUNT & AUTO [id number] 05:28:00 Test Item Value Reference Range Comments WHITE BLOOD CELL COUNT (BEAKER) (test gxxh=395) 5.6 K/ L 4.0-10.0 RED BLOOD CELL COUNT (BEAKER) (test kkub=800) 2.00 M/ L 4.20-5.80 HEMOGLOBIN (BEAKER) (test ujru=571) 7.2 GM/DL 13.0-16.8 HEMATOCRIT (BEAKER) (test zhia=556) 21.2 % 40.0-50.0 MEAN CORPUSCULAR VOLUME (BEAKER) (test pubq=055) 106.0 fL 82.0-98.0 MEAN CORPUSCULAR HEMOGLOBIN (BEAKER) (test 36.0 pg 27.0-33.0 xmfv=293) MEAN CORPUSCULAR HEMOGLOBIN CONC (BEAKER) (test 34.0 GM/DL 32.0-36.0 bbov=367) RED CELL DISTRIBUTION WIDTH (BEAKER) (test 13.9 % 10.3-14.2 vjhg=598) PLATELET COUNT (BEAKER) (test akyc=836) 74 K/CU MM 150-430 MEAN PLATELET VOLUME (BEAKER) (test detz=148) 6.6 fL 6.5-10.5 NUCLEATED RED BLOOD CELLS (BEAKER) (test 0 /100 WBC 0-0 ngtd=892) NEUTROPHILS RELATIVE PERCENT (BEAKER) (test 66 % mfkn=496) LYMPHOCYTES RELATIVE PERCENT (BEAKER) (test 14 % mplo=108) MONOCYTES RELATIVE PERCENT (BEAKER) (test 13 % cuwo=593) EOSINOPHILS RELATIVE PERCENT (BEAKER) (test 7 % epse=804) BASOPHILS RELATIVE PERCENT (BEAKER) (test 0 % uybw=484) NEUTROPHILS ABSOLUTE COUNT (BEAKER) (test 3.67 K/ L 1.80-8.00 perv=053) LYMPHOCYTES ABSOLUTE COUNT (BEAKER) (test 0.80 K/ L 1.48-4.50 szhp=512) MONOCYTES ABSOLUTE COUNT (BEAKER) (test xwes=608) 0.69 K/ L 0.00-1.30 EOSINOPHILS ABSOLUTE COUNT (BEAKER) (test 0.38 K/ L 0.00-0.50 nisd=089) BASOPHILS ABSOLUTE COUNT (BEAKER) (test vbww=055) 0.02 K/ L 0.00-0.20 0.00PROTHROMBIN [id number] 05:11:00 Test Item Value Reference Range Comments PROTIME (BEAKER) (test obwa=071) 25.9 seconds 11.7-14.7 INR (BEAKER) (test admh=647) 2.4 <=5.9 RECOMMENDED COUMADIN/WARFARIN INR THERAPY RANGESSTANDARD DOSE: 2.0 - 3.0 Includes: PROPHYLAXIS forvenous thrombosis, systemic embolization; TREATMENT for venous thrombosis and/or pulmonary embolus.HIGH RISK: Target INR is 2.5-3.5 for patients with mechanical heart valves.[id number] 05:03:00 Test Item Value Reference Range Comments PHOSPHORUS (BEAKER) (test dvtn=253) 3.5 mg/dL 2.3-4.7 [id number] 05:03:00 Test Item Value Reference Range Comments MAGNESIUM (BEAKER) (test ifba=845) 1.7 mg/dL 1.6-2.6 BASIC METABOLIC [id number] 05:03:00 Test Item Value Reference Range Comments SODIUM (BEAKER) (test 135 meq/L 136-145 sxjg=524) POTASSIUM (BEAKER) (test 4.0 meq/L 3.5-5.1 ukxp=060) CHLORIDE (BEAKER) (test 107 meq/L 98-107 jkgz=904) CO2 (BEAKER) (test 20 meq/L 22-29 hunu=153) BLOOD UREA NITROGEN 22 mg/dL 7-21 (BEAKER) (test zoaq=137) CREATININE (BEAKER) (test 1.77 mg/dL 0.57-1.25 jbmt=814) GLUCOSE RANDOM (BEAKER) 83 mg/dL 70-105 (test ioiu=623) CALCIUM (BEAKER) (test 8.3 mg/dL 8.4-10.2 ayzj=878) EGFR (BEAKER) (test 41 mL/min/1.73 sq m ESTIMATED GFR IS NOT brqp=4391) ACCURATE CREATININE CLEARANCE IN PREDICTING GLOMERULAR FILTRATION RATE. ESTIMATED GFR IS NOT APPLICABLE FOR DIALYSIS PATIENTS. Specimen moderately ictericHEPATIC FUNCTION [id number] 05:03:00 Test Item Value Reference Range Comments TOTAL PROTEIN (BEAKER) (test qyvz=163) 6.2 gm/dL 6.0-8.3 ALBUMIN (BEAKER) (test xiyp=7366) 3.7 g/dL 3.5-5.0 BILIRUBIN TOTAL (BEAKER) (test lvli=108) 6.0 mg/dL 0.2-1.2 BILIRUBIN DIRECT (BEAKER) (test jvdf=722) 2.6 mg/dL 0.1-0.5 ALKALINE PHOSPHATASE (BEAKER) (test iqbt=103) 48 U/L 40-150 AST (SGOT) (BEAKER) (test acfc=018) 26 U/L 5-34 ALT (SGPT) (BEAKER) (test dycx=835) 8 U/L 6-55 Specimen moderately ictericURINE [id number] 14:42:00 Test Item Value Reference Range Comments CULTURE (BEAKER) (test rsza=2527) No growth ANTI-NUCLEAR ANTIBODY (CHERYL)[id number] 13:32:00 Test Item Value Reference Range Comments ANTI-NUCLEAR ANTIBODY (CHERYL) (BEAKER) (test Negative Negative mrtz=125) PLATELET [id number] 06:30:00 Test Item Value Reference Range Comments PLATELET COUNT (BEAKER) (test tdvn=475) 104 K/CU MM 150-430 [id number] 06:22:00 Test Item Value Reference Range Comments FIBRINOGEN LEVEL (BEAKER) (test jekn=385) 106 mg/dl 225-434 [id number] 06:16:00 Test Item Value Reference Range Comments PARTIAL THROMBOPLASTIN TIME (BEAKER) (test 48.1 seconds 22.5-36.0 gndu=936) PROTHROMBIN [id number] 06:15:00 Test Item Value Reference Range Comments PROTIME (BEAKER) (test nhby=737) 23.5 seconds 11.7-14.7 INR (BEAKER) (test raxc=549) 2.1 <=5.9 RECOMMENDED COUMADIN/WARFARIN INR THERAPY RANGESSTANDARD DOSE: 2.0 - 3.0 Includes: PROPHYLAXIS forvenous thrombosis, systemic embolization; TREATMENT for venous thrombosis and/or pulmonary embolus.HIGH RISK: Target INR is 2.5-3.5 for patients with mechanical heart valves.[id number] 06:12:00 Test Item Value Reference Range Comments MAGNESIUM (BEAKER) (test 2.0 mg/dL 1.6-2.6 Specimen slightly hemolyzed vrva=415) [id number] 06:12:00 Test Item Value Reference Range Comments PHOSPHORUS (BEAKER) (test 5.0 mg/dL 2.3-4.7 Specimen slightly hemolyzed kfqs=598) BASIC METABOLIC [id number] 06:12:00 Test Item Value Reference Range Comments SODIUM (BEAKER) (test 135 meq/L 136-145 bxsn=955) POTASSIUM (BEAKER) (test 4.7 meq/L 3.5-5.1 Specimen slightly hxtv=859) hemolyzed CHLORIDE (BEAKER) (test 107 meq/L 98-107 niyd=882) CO2 (BEAKER) (test 20 meq/L 22-29 pyrw=235) BLOOD UREA NITROGEN 18 mg/dL 7-21 (BEAKER) (test ujoo=525) CREATININE (BEAKER) (test 1.74 mg/dL 0.57-1.25 Specimen slightly puar=326) hemolyzed GLUCOSE RANDOM (BEAKER) 76 mg/dL 70-105 (test ydqv=190) CALCIUM (BEAKER) (test 8.1 mg/dL 8.4-10.2 hvpr=161) EGFR (BEAKER) (test 42 mL/min/1.73 sq m ESTIMATED GFR IS NOT cnat=3741) ACCURATE CREATININE CLEARANCE IN PREDICTING GLOMERULAR FILTRATION RATE. ESTIMATED GFR IS NOT APPLICABLE FOR DIALYSIS PATIENTS. Specimen moderately ictericHEPATIC FUNCTION [id number] 06:12:00 Test Item Value Reference Range Comments TOTAL PROTEIN (BEAKER) (test 6.6 gm/dL 6.0-8.3 Specimen slightly hemolyzed wjbi=146) ALBUMIN (BEAKER) (test 3.7 g/dL 3.5-5.0 Specimen slightly hemolyzed ungr=2009) BILIRUBIN TOTAL (BEAKER) (test 5.7 mg/dL 0.2-1.2 Specimen slightly hemolyzed bpsi=192) BILIRUBIN DIRECT (BEAKER) (test 2.7 mg/dL 0.1-0.5 Specimen slightly hemolyzed sytj=589) ALKALINE PHOSPHATASE (BEAKER) 56 U/L 40-150 (test tgcq=169) AST (SGOT) (BEAKER) (test 29 U/L 5-34 Specimen slightly hemolyzed sgtv=121) ALT (SGPT) (BEAKER) (test 7 U/L 6-55 Specimen slightly hemolyzed hvmr=687) Specimen moderately ictericLACTIC ACID, VENOUS, WHOLE [id number] 06:04:00 Test Item Value Reference Range Comments LACTATE BLOOD VENOUS (2) (BEAKER) (test 1.0 mmol/L 0.5-2.2 iezf=9137) Effective 02/28/2016: Units/Reference Range ChangeNew: 0.5-2.2 mmol/L Previous: 5 -20 mg/dLSpecimen moderately ictericCALCIUM, [id number] 05:56:00 Test Item Value Reference Range Comments CALCIUM IONIZED (BEAKER) (test tumy=868) 1.00 mmol/L 1.12-1.27 PH, BLOOD (BEAKER) (test nstj=0653) 7.34 [id number] 21:34:00 Test Item Value Reference Range Comments FIBRINOGEN LEVEL (BEAKER) (test xcua=100) 105 mg/dl 225-434 PLATELET [id number] 20:52:00 Test Item Value Reference Range Comments PLATELET COUNT (BEAKER) (test vhor=179) 77 K/CU MM 150-430 [id number] 20:51:00 Test Item Value Reference Range Comments PROTIME (BEAKER) (test wfwd=461) 21.1 seconds 11.7-14.7 INR (BEAKER) (test asmz=159) 1.8 <=5.9 PARTIAL THROMBOPLASTIN TIME (BEAKER) (test 47.3 seconds 22.5-36.0 ngpd=141) RECOMMENDED COUMADIN/WARFARIN INR THERAPY RANGESSTANDARD DOSE: 2.0 - 3.0 Includes: PROPHYLAXIS forvenous thrombosis, systemic embolization; TREATMENT for venous thrombosis and/or pulmonary embolus.HIGH RISK: Target INR is 2.5-3.5 for patients with mechanical heart valves.[id number] 20:51:00 Test Item Value Reference Range Comments PARTIAL THROMBOPLASTIN TIME (BEAKER) (test 47.3 seconds 22.5-36.0 aeff=605) PROTHROMBIN [id number] 20:50:00 Test Item Value Reference Range Comments PROTIME (BEAKER) (test edzz=524) 21.1 seconds 11.7-14.7 INR (BEAKER) (test sonc=097) 1.8 <=5.9 RECOMMENDED COUMADIN/WARFARIN INR THERAPY RANGESSTANDARD DOSE: 2.0 - 3.0 Includes: PROPHYLAXIS forvenous thrombosis, systemic embolization; TREATMENT for venous thrombosis and/or pulmonary embolus.HIGH RISK: Target INR is 2.5-3.5 for patients with mechanical heart valves.[id number] 19:30:00 Test Item Value Reference Range Comments PARTIAL THROMBOPLASTIN TIME (BEAKER) (test 45.1 seconds 22.5-36.0 gvpr=434) PROTHROMBIN [id number] 19:29:00 Test Item Value Reference Range Comments PROTIME (BEAKER) (test ffxh=238) 28.2 seconds 11.7-14.7 INR (BEAKER) (test etsk=211) 2.6 <=5.9 RECOMMENDED COUMADIN/WARFARIN INR THERAPY RANGESSTANDARD DOSE: 2.0 - 3.0 Includes: PROPHYLAXIS forvenous thrombosis, systemic embolization; TREATMENT for venous thrombosis and/or pulmonary embolus.HIGH RISK: Target INR is 2.5-3.5 for patients with mechanical heart valves.BODY FLUID CELL COUNT WITH [id number] 18:53:00 Test Item Value Reference Range Comments APPEARANCE FLUID (BEAKER) (test ghhs=998) Hazy Clear COLOR FLUID (BEAKER) (test xgjw=278) Yellow Colorless, Straw RBC FLUID (BEAKER) (test tfah=385) 900 /cu mm <=1 ADJUSTED WBC FLUID (BEAKER) (test rzle=9758) 306 /cu mm <=5 LINING CELLS (BEAKER) (test rmcj=9708) 64 /cu mm <=1 NEUTROPHILS FLUID (BEAKER) (test yhln=6467) 4 % LYMPHS FLUID (BEAKER) (test jblp=950) 18 % MONO/MACROPHAGE FLUID (BEAKER) (test zrcx=754) 78 % EOSINOPHILS FLUID (BEAKER) (test pokk=922) 0 % BASO FLUID (BEAKER) (test lkqa=502) 0 % CONTAINER BODY FLUID (BEAKER) (test nfsd=2691) EDTA Tube [id number] 16:56:00 Test Item Value Reference Range Comments AMYLASE (BEAKER) (test qrnr=686) 37 U/L 25-125 Specimen moderately ictericCOMPREHENSIVE METABOLIC [id number] 16:56:00 Test Item Value Reference Range Comments TOTAL PROTEIN (BEAKER) 6.1 gm/dL 6.0-8.3 (test trrr=828) ALBUMIN (BEAKER) (test 3.2 g/dL 3.5-5.0 ixgy=1971) ALKALINE PHOSPHATASE 67 U/L 40-150 (BEAKER) (test impj=064) BILIRUBIN TOTAL (BEAKER) 5.7 mg/dL 0.2-1.2 (test eoff=629) SODIUM (BEAKER) (test 134 meq/L 136-145 jujs=063) POTASSIUM (BEAKER) (test 3.8 meq/L 3.5-5.1 nrvr=469) CHLORIDE (BEAKER) (test 106 meq/L 98-107 tmfr=687) CO2 (BEAKER) (test 19 meq/L 22-29 gaqw=792) BLOOD UREA NITROGEN 18 mg/dL 7-21 (BEAKER) (test ejww=004) CREATININE (BEAKER) (test 1.52 mg/dL 0.57-1.25 xbce=134) GLUCOSE RANDOM (BEAKER) 112 mg/dL 70-105 (test serd=563) CALCIUM (BEAKER) (test 8.3 mg/dL 8.4-10.2 mflr=311) AST (SGOT) (BEAKER) (test 28 U/L 5-34 sscq=597) ALT (SGPT) (BEAKER) (test 10 U/L 6-55 maos=422) EGFR (BEAKER) (test 49 mL/min/1.73 sq m ESTIMATED GFR IS NOT apnu=6873) ACCURATE CREATININE CLEARANCE IN PREDICTING GLOMERULAR FILTRATION RATE. ESTIMATED GFR IS NOT APPLICABLE FOR DIALYSIS PATIENTS. Specimen moderately [id number] 16:56:00 Test Item Value Reference Range Comments LIPASE (BEAKER) (test nrwl=666) 52 U/L 8-78 Specimen moderately ictericCBC W/PLT COUNT & AUTO [id number] 16: 27:00 Test Item Value Reference Range Comments WHITE BLOOD CELL COUNT (BEAKER) (test qqiz=084) 3.7 K/ L 4.0-10.0 RED BLOOD CELL COUNT (BEAKER) (test mpfk=674) 2.16 M/ L 4.20-5.80 HEMOGLOBIN (BEAKER) (test zeqd=507) 7.8 GM/DL 13.0-16.8 HEMATOCRIT (BEAKER) (test ummx=411) 23.1 % 40.0-50.0 MEAN CORPUSCULAR VOLUME (BEAKER) (test alom=429) 107.0 fL 82.0-98.0 MEAN CORPUSCULAR HEMOGLOBIN (BEAKER) (test 36.0 pg 27.0-33.0 jubp=285) MEAN CORPUSCULAR HEMOGLOBIN CONC (BEAKER) (test 33.6 GM/DL 32.0-36.0 mwln=678) RED CELL DISTRIBUTION WIDTH (BEAKER) (test 13.9 % 10.3-14.2 unal=828) PLATELET COUNT (BEAKER) (test zppa=175) 78 K/CU MM 150-430 MEAN PLATELET VOLUME (BEAKER) (test jwof=863) 6.2 fL 6.5-10.5 NUCLEATED RED BLOOD CELLS (BEAKER) (test 0 /100 WBC 0-0 gbcw=300) NEUTROPHILS RELATIVE PERCENT (BEAKER) (test 50 % tavq=932) LYMPHOCYTES RELATIVE PERCENT (BEAKER) (test 25 % arju=571) MONOCYTES RELATIVE PERCENT (BEAKER) (test 19 % johv=550) EOSINOPHILS RELATIVE PERCENT (BEAKER) (test 6 % ofgd=378) BASOPHILS RELATIVE PERCENT (BEAKER) (test 1 % uyix=381) NEUTROPHILS ABSOLUTE COUNT (BEAKER) (test 1.82 K/ L 1.80-8.00 ialt=244) LYMPHOCYTES ABSOLUTE COUNT (BEAKER) (test 0.91 K/ L 1.48-4.50 tvfh=534) MONOCYTES ABSOLUTE COUNT (BEAKER) (test tzsu=630) 0.69 K/ L 0.00-1.30 EOSINOPHILS ABSOLUTE COUNT (BEAKER) (test 0.21 K/ L 0.00-0.50 vhhj=743) BASOPHILS ABSOLUTE COUNT (BEAKER) (test ytvo=053) 0.02 K/ L 0.00-0.20 0.00HEPATIC FUNCTION [id number] 08:34:00 Test Item Value Reference Range Comments TOTAL PROTEIN (BEAKER) (test smdn=300) 5.9 gm/dL 6.0-8.3 ALBUMIN (BEAKER) (test jsgq=3912) 3.2 g/dL 3.5-5.0 BILIRUBIN TOTAL (BEAKER) (test fgpk=151) 5.4 mg/dL 0.2-1.2 BILIRUBIN DIRECT (BEAKER) (test hvtv=733) 2.5 mg/dL 0.1-0.5 ALKALINE PHOSPHATASE (BEAKER) (test nbed=545) 60 U/L 40-150 AST (SGOT) (BEAKER) (test cpmu=194) 28 U/L 5-34 ALT (SGPT) (BEAKER) (test udap=053) 10 U/L 6-55 Specimen moderately [id number] 08:16:00 Test Item Value Reference Range Comments PHOSPHORUS (BEAKER) (test akky=883) 3.0 mg/dL 2.3-4.7 [id number] 08:16:00 Test Item Value Reference Range Comments MAGNESIUM (BEAKER) (test yvvb=541) 1.6 mg/dL 1.6-2.6 BASIC METABOLIC [id number] 08:16:00 Test Item Value Reference Range Comments SODIUM (BEAKER) (test 133 meq/L 136-145 flze=489) POTASSIUM (BEAKER) (test 3.6 meq/L 3.5-5.1 esqw=498) CHLORIDE (BEAKER) (test 105 meq/L 98-107 vmfv=689) CO2 (BEAKER) (test 20 meq/L 22-29 zvda=288) BLOOD UREA NITROGEN 18 mg/dL 7-21 (BEAKER) (test ssxa=425) CREATININE (BEAKER) (test 1.54 mg/dL 0.57-1.25 essu=574) GLUCOSE RANDOM (BEAKER) 70 mg/dL 70-105 (test gldj=528) CALCIUM (BEAKER) (test 8.2 mg/dL 8.4-10.2 jvhf=366) EGFR (BEAKER) (test 48 mL/min/1.73 sq m ESTIMATED GFR IS NOT ksag=0015) ACCURATE CREATININE CLEARANCE IN PREDICTING GLOMERULAR FILTRATION RATE. ESTIMATED GFR IS NOT APPLICABLE FOR DIALYSIS PATIENTS. Specimen moderately ictericCBC W/PLT COUNT & AUTO [id number] 08: 06:00 Test Item Value Reference Range Comments WHITE BLOOD CELL COUNT (BEAKER) (test dhef=701) 3.4 K/ L 4.0-10.0 RED BLOOD CELL COUNT (BEAKER) (test abql=064) 2.03 M/ L 4.20-5.80 HEMOGLOBIN (BEAKER) (test vbvx=417) 7.3 GM/DL 13.0-16.8 HEMATOCRIT (BEAKER) (test tqiy=983) 21.6 % 40.0-50.0 MEAN CORPUSCULAR VOLUME (BEAKER) (test peau=470) 106.0 fL 82.0-98.0 MEAN CORPUSCULAR HEMOGLOBIN (BEAKER) (test 35.8 pg 27.0-33.0 eceu=645) MEAN CORPUSCULAR HEMOGLOBIN CONC (BEAKER) (test 33.7 GM/DL 32.0-36.0 wzit=431) RED CELL DISTRIBUTION WIDTH (BEAKER) (test 13.5 % 10.3-14.2 vuqa=464) PLATELET COUNT (BEAKER) (test xjtg=547) 82 K/CU MM 150-430 MEAN PLATELET VOLUME (BEAKER) (test mwrt=031) 6.7 fL 6.5-10.5 NUCLEATED RED BLOOD CELLS (BEAKER) (test 0 /100 WBC 0-0 qwto=389) NEUTROPHILS RELATIVE PERCENT (BEAKER) (test 50 % ieel=824) LYMPHOCYTES RELATIVE PERCENT (BEAKER) (test 25 % wlzv=599) MONOCYTES RELATIVE PERCENT (BEAKER) (test 19 % neiq=548) EOSINOPHILS RELATIVE PERCENT (BEAKER) (test 5 % dsbj=699) BASOPHILS RELATIVE PERCENT (BEAKER) (test 1 % exqa=244) NEUTROPHILS ABSOLUTE COUNT (BEAKER) (test 1.69 K/ L 1.80-8.00 ccrl=893) LYMPHOCYTES ABSOLUTE COUNT (BEAKER) (test 0.83 K/ L 1.48-4.50 iaaw=659) MONOCYTES ABSOLUTE COUNT (BEAKER) (test ufgj=289) 0.65 K/ L 0.00-1.30 EOSINOPHILS ABSOLUTE COUNT (BEAKER) (test 0.17 K/ L 0.00-0.50 fbsx=873) BASOPHILS ABSOLUTE COUNT (BEAKER) (test ljri=074) 0.04 K/ L 0.00-0.20 0.00PROTHROMBIN [id number] 08:01:00 Test Item Value Reference Range Comments PROTIME (BEAKER) (test tcon=333) 27.6 seconds 11.7-14.7 INR (BEAKER) (test nnzo=462) 2.6 <=5.9 RECOMMENDED COUMADIN/WARFARIN INR THERAPY RANGESSTANDARD DOSE: 2.0 - 3.0 Includes: PROPHYLAXIS forvenous thrombosis, systemic embolization; TREATMENT for venous thrombosis and/or pulmonary embolus.HIGH RISK: Target INR is 2.5-3.5 for patients with mechanical heart valves.CALCIUM, [id number] 07:58:00 Test Item Value Reference Range Comments CALCIUM IONIZED (BEAKER) (test fckt=282) 1.00 mmol/L 1.12-1.27 PH, BLOOD (BEAKER) (test heco=0251) 7.53 URINALYSIS W/ [id number] 18:42:00 Test Item Value Reference Range Comments COLOR (BEAKER) (test ktfd=617) Yellow CLARITY (BEAKER) (test zcrz=510) Clear SPECIFIC GRAVITY UA (BEAKER) (test 1.009 1.001-1.035 wsdn=369) PH UA (BEAKER) (test ioum=352) 7.5 5.0-8.0 PROTEIN UA (BEAKER) (test nlvg=317) Negative Negative GLUCOSE UA (BEAKER) (test molw=133) Negative Negative KETONES UA (BEAKER) (test hryl=715) Negative Negative BILIRUBIN UA (BEAKER) (test eexh=567) Negative Negative BLOOD UA (BEAKER) (test qbvr=550) Negative Negative NITRITE UA (BEAKER) (test swzz=249) Negative Negative LEUKOCYTE ESTERASE UA (BEAKER) (test Negative Negative cklb=332) UROBILINOGEN UA (BEAKER) (test iezp=342) 3.0 mg/dL 0.2-1.0 RBC UA (BEAKER) (test pfkz=118) 6 /HPF WBC UA (BEAKER) (test ocnj=094) 1 /HPF SOURCE(BEAKER) (test xdpx=5551) Urine, Clean Catch PROTHROMBIN [id number] 15:13:00 Test Item Value Reference Range Comments PROTIME (BEAKER) (test xeds=567) 31.4 seconds 11.7-14.7 INR (BEAKER) (test yfri=012) 3.0 <=5.9 RECOMMENDED COUMADIN/WARFARIN INR THERAPY RANGESSTANDARD DOSE: 2.0 - 3.0 Includes: PROPHYLAXIS forvenous thrombosis, systemic embolization; TREATMENT for venous thrombosis and/or pulmonary embolus.HIGH RISK: Target INR is 2.5-3.5 for patients with mechanical heart valves.Draw after vitamin K administrationCBC W/PLT COUNT & AUTO [id number] 07:02:00 Test Item Value Reference Range Comments WHITE BLOOD CELL COUNT (BEAKER) (test tndv=409) 3.0 K/ L 4.0-10.0 RED BLOOD CELL COUNT (BEAKER) (test giat=876) 2.21 M/ L 4.20-5.80 HEMOGLOBIN (BEAKER) (test zogv=842) 7.5 GM/DL 13.0-16.8 HEMATOCRIT (BEAKER) (test lioh=928) 23.5 % 40.0-50.0 MEAN CORPUSCULAR VOLUME (BEAKER) (test zjhr=923) 106.0 fL 82.0-98.0 MEAN CORPUSCULAR HEMOGLOBIN (BEAKER) (test 34.0 pg 27.0-33.0 fdpa=120) MEAN CORPUSCULAR HEMOGLOBIN CONC (BEAKER) (test 32.0 GM/DL 32.0-36.0 bhfv=804) RED CELL DISTRIBUTION WIDTH (BEAKER) (test 13.0 % 10.3-14.2 ebxp=578) PLATELET COUNT (BEAKER) (test gsth=350) 81 K/CU MM 150-430 MEAN PLATELET VOLUME (BEAKER) (test bgzp=425) 6.3 fL 6.5-10.5 NUCLEATED RED BLOOD CELLS (BEAKER) (test 0 /100 WBC 0-0 hydg=004) NEUTROPHILS RELATIVE PERCENT (BEAKER) (test 52 % khzl=719) LYMPHOCYTES RELATIVE PERCENT (BEAKER) (test 24 % lluu=270) MONOCYTES RELATIVE PERCENT (BEAKER) (test 20 % xyft=684) EOSINOPHILS RELATIVE PERCENT (BEAKER) (test 3 % akgi=127) BASOPHILS RELATIVE PERCENT (BEAKER) (test 1 % ttsk=504) NEUTROPHILS ABSOLUTE COUNT (BEAKER) (test 1.53 K/ L 1.80-8.00 gbzj=655) LYMPHOCYTES ABSOLUTE COUNT (BEAKER) (test 0.71 K/ L 1.48-4.50 bwdv=806) MONOCYTES ABSOLUTE COUNT (BEAKER) (test tube=885) 0.60 K/ L 0.00-1.30 EOSINOPHILS ABSOLUTE COUNT (BEAKER) (test 0.10 K/ L 0.00-0.50 xvdv=834) BASOPHILS ABSOLUTE COUNT (BEAKER) (test pykj=772) 0.03 K/ L 0.00-0.20 0.00BASI METABOLIC [id number] 06:29:00 Test Item Value Reference Range Comments SODIUM (BEAKER) (test 135 meq/L 136-145 ixnh=774) POTASSIUM (BEAKER) (test 4.0 meq/L 3.5-5.1 cpwj=737) CHLORIDE (BEAKER) (test 106 meq/L 98-107 yody=443) CO2 (BEAKER) (test 22 meq/L 22-29 qewd=442) BLOOD UREA NITROGEN 17 mg/dL 7-21 (BEAKER) (test pjgm=710) CREATININE (BEAKER) (test 1.46 mg/dL 0.57-1.25 dwnc=529) GLUCOSE RANDOM (BEAKER) 75 mg/dL 70-105 (test gksw=340) CALCIUM (BEAKER) (test 8.0 mg/dL 8.4-10.2 qaiz=141) EGFR (BEAKER) (test 51 mL/min/1.73 sq m ESTIMATED GFR IS NOT kaun=7075) ACCURATE CREATININE CLEARANCE IN PREDICTING GLOMERULAR FILTRATION RATE. ESTIMATED GFR IS NOT APPLICABLE FOR DIALYSIS PATIENTS. Specimen moderately ictericHEPATIC FUNCTION [id number] 06:29:00 Test Item Value Reference Range Comments TOTAL PROTEIN (BEAKER) (test qnad=997) 5.9 gm/dL 6.0-8.3 ALBUMIN (BEAKER) (test zhjh=5353) 3.0 g/dL 3.5-5.0 BILIRUBIN TOTAL (BEAKER) (test qpqr=939) 5.4 mg/dL 0.2-1.2 BILIRUBIN DIRECT (BEAKER) (test cqqv=763) 2.7 mg/dL 0.1-0.5 ALKALINE PHOSPHATASE (BEAKER) (test htnv=799) 65 U/L 40-150 AST (SGOT) (BEAKER) (test srne=548) 27 U/L 5-34 ALT (SGPT) (BEAKER) (test qzpx=315) 7 U/L 6-55 Specimen moderately ictericPROTHROMBIN [id number] 06:23:00 Test Item Value Reference Range Comments PROTIME (BEAKER) (test plko=382) 31.2 seconds 11.7-14.7 INR (BEAKER) (test dapr=931) 3.0 <=5.9 RECOMMENDED COUMADIN/WARFARIN INR THERAPY RANGESSTANDARD DOSE: 2.0 - 3.0 Includes: PROPHYLAXIS forvenous thrombosis, systemic embolization; TREATMENT for venous thrombosis and/or pulmonary embolus.HIGH RISK: Target INR is 2.5-3.5 for patients with mechanical heart valves.CBC W/PLT COUNT & AUTO [id number] 06:26:00 Test Item Value Reference Range Comments WHITE BLOOD CELL COUNT (BEAKER) (test vdbm=628) 3.0 K/ L 4.0-10.0 RED BLOOD CELL COUNT (BEAKER) (test cgxe=599) 2.16 M/ L 4.20-5.80 HEMOGLOBIN (BEAKER) (test zmcg=598) 7.4 GM/DL 13.0-16.8 HEMATOCRIT (BEAKER) (test uziz=215) 23.1 % 40.0-50.0 MEAN CORPUSCULAR VOLUME (BEAKER) (test pexf=951) 107.0 fL 82.0-98.0 MEAN CORPUSCULAR HEMOGLOBIN (BEAKER) (test 34.4 pg 27.0-33.0 aril=023) MEAN CORPUSCULAR HEMOGLOBIN CONC (BEAKER) (test 32.1 GM/DL 32.0-36.0 bdks=160) RED CELL DISTRIBUTION WIDTH (BEAKER) (test 13.1 % 10.3-14.2 xxnr=456) PLATELET COUNT (BEAKER) (test ldtv=939) 72 K/CU MM 150-430 MEAN PLATELET VOLUME (BEAKER) (test nzby=051) 6.1 fL 6.5-10.5 NUCLEATED RED BLOOD CELLS (BEAKER) (test 0 /100 WBC 0-0 ystq=058) NEUTROPHILS RELATIVE PERCENT (BEAKER) (test 58 % maaq=505) LYMPHOCYTES RELATIVE PERCENT (BEAKER) (test 21 % ijtk=224) MONOCYTES RELATIVE PERCENT (BEAKER) (test 15 % afua=829) EOSINOPHILS RELATIVE PERCENT (BEAKER) (test 4 % qakl=232) BASOPHILS RELATIVE PERCENT (BEAKER) (test 1 % npma=005) NEUTROPHILS ABSOLUTE COUNT (BEAKER) (test 1.73 K/ L 1.80-8.00 xvrg=417) LYMPHOCYTES ABSOLUTE COUNT (BEAKER) (test 0.64 K/ L 1.48-4.50 erwr=265) MONOCYTES ABSOLUTE COUNT (BEAKER) (test cmzi=797) 0.45 K/ L 0.00-1.30 EOSINOPHILS ABSOLUTE COUNT (BEAKER) (test 0.13 K/ L 0.00-0.50 afzh=649) BASOPHILS ABSOLUTE COUNT (BEAKER) (test jole=700) 0.02 K/ L 0.00-0.20 0.00BASIC METABOLIC [id number] 06:24:00 Test Item Value Reference Range Comments SODIUM (BEAKER) (test 134 meq/L 136-145 oiom=941) POTASSIUM (BEAKER) (test 3.7 meq/L 3.5-5.1 uive=634) CHLORIDE (BEAKER) (test 105 meq/L 98-107 nmrw=094) CO2 (BEAKER) (test 21 meq/L 22-29 ukac=775) BLOOD UREA NITROGEN 18 mg/dL 7-21 (BEAKER) (test yrhw=647) CREATININE (BEAKER) (test 1.53 mg/dL 0.57-1.25 rdfh=834) GLUCOSE RANDOM (BEAKER) 103 mg/dL 70-105 (test cdbj=276) CALCIUM (BEAKER) (test 7.6 mg/dL 8.4-10.2 lkyg=034) EGFR (BEAKER) (test 48 mL/min/1.73 sq m ESTIMATED GFR IS NOT daqv=0986) ACCURATE CREATININE CLEARANCE IN PREDICTING GLOMERULAR FILTRATION RATE. ESTIMATED GFR IS NOT APPLICABLE FOR DIALYSIS PATIENTS. Specimen moderately ictericHEPATIC FUNCTION [id number] 06:19:00 Test Item Value Reference Range Comments TOTAL PROTEIN (BEAKER) (test kafs=106) 5.6 gm/dL 6.0-8.3 ALBUMIN (BEAKER) (test gbsz=7758) 2.4 g/dL 3.5-5.0 BILIRUBIN TOTAL (BEAKER) (test dfji=718) 4.8 mg/dL 0.2-1.2 BILIRUBIN DIRECT (BEAKER) (test ctpi=937) 2.6 mg/dL 0.1-0.5 ALKALINE PHOSPHATASE (BEAKER) (test bdrh=304) 70 U/L 40-150 AST (SGOT) (BEAKER) (test pifm=022) 28 U/L 5-34 ALT (SGPT) (BEAKER) (test txit=377) 11 U/L 6-55 Specimen moderately ictericPROTHROMBIN [id number] 06:00:00 Test Item Value Reference Range Comments PROTIME (BEAKER) (test mvsb=811) 36.7 seconds 11.7-14.7 INR (BEAKER) (test qqgn=035) 3.7 <=5.9 RECOMMENDED COUMADIN/WARFARIN INR THERAPY RANGESSTANDARD DOSE: 2.0 - 3.0 Includes: PROPHYLAXIS forvenous thrombosis, systemic embolization; TREATMENT for venous thrombosis and/or pulmonary embolus.HIGH RISK: Target INR is 2.5-3.5 for patients with mechanical heart valves.BODY FLUID CULTURE + GRAM [id number] 00:51:00 Test Item Value Reference Range Comments CULTURE (BEAKER) (test rpiu=6996) No growth GRAM STAIN RESULT (BEAKER) (test 3+ WBCs obzs=1010) GRAM STAIN RESULT (BEAKER) (test No organisms seen zidu=78772) BLOOD [id number] 17:08:00 Test Item Value Reference Range Comments CULTURE (BEAKER) (test xmgg=3354) No growth in 5 days BLOOD [id number] 17:06:00 Test Item Value Reference Range Comments CULTURE (BEAKER) (test aucd=7398) No growth in 5 days CBC W/PLT COUNT & AUTO [id number] 07:05:00 Test Item Value Reference Range Comments WHITE BLOOD CELL COUNT (BEAKER) (test hipp=759) 3.5 K/ L 4.0-10.0 RED BLOOD CELL COUNT (BEAKER) (test otrq=744) 2.16 M/ L 4.20-5.80 HEMOGLOBIN (BEAKER) (test weak=737) 7.8 GM/DL 13.0-16.8 HEMATOCRIT (BEAKER) (test cvhm=762) 23.9 % 40.0-50.0 MEAN CORPUSCULAR VOLUME (BEAKER) (test uilp=379) 111.0 fL 82.0-98.0 MEAN CORPUSCULAR HEMOGLOBIN (BEAKER) (test 36.3 pg 27.0-33.0 aucj=894) MEAN CORPUSCULAR HEMOGLOBIN CONC (BEAKER) (test 32.8 GM/DL 32.0-36.0 ilff=384) RED CELL DISTRIBUTION WIDTH (BEAKER) (test 13.9 % 10.3-14.2 fjjn=189) PLATELET COUNT (BEAKER) (test ruup=068) 72 K/CU MM 150-430 MEAN PLATELET VOLUME (BEAKER) (test akya=681) 6.4 fL 6.5-10.5 NUCLEATED RED BLOOD CELLS (BEAKER) (test 0 /100 WBC 0-0 ucbu=097) NEUTROPHILS RELATIVE PERCENT (BEAKER) (test 51 % riju=859) LYMPHOCYTES RELATIVE PERCENT (BEAKER) (test 25 % zscy=159) MONOCYTES RELATIVE PERCENT (BEAKER) (test 18 % sqly=203) EOSINOPHILS RELATIVE PERCENT (BEAKER) (test 6 % frzy=339) BASOPHILS RELATIVE PERCENT (BEAKER) (test 0 % iezn=658) NEUTROPHILS ABSOLUTE COUNT (BEAKER) (test 1.77 K/ L 1.80-8.00 geaf=033) LYMPHOCYTES ABSOLUTE COUNT (BEAKER) (test 0.87 K/ L 1.48-4.50 kepz=539) MONOCYTES ABSOLUTE COUNT (BEAKER) (test efzn=989) 0.62 K/ L 0.00-1.30 EOSINOPHILS ABSOLUTE COUNT (BEAKER) (test 0.22 K/ L 0.00-0.50 ixgj=521) BASOPHILS ABSOLUTE COUNT (BEAKER) (test woje=364) 0.01 K/ L 0.00-0.20 0.00BASIC METABOLIC [id number] 06:54:00 Test Item Value Reference Range Comments SODIUM (BEAKER) (test 137 meq/L 136-145 ulqc=163) POTASSIUM (BEAKER) (test 3.8 meq/L 3.5-5.1 bqnd=171) CHLORIDE (BEAKER) (test 109 meq/L 98-107 izxd=231) CO2 (BEAKER) (test 21 meq/L 22-29 wlpu=494) BLOOD UREA NITROGEN 17 mg/dL 7-21 (BEAKER) (test qdew=257) CREATININE (BEAKER) (test 1.60 mg/dL 0.57-1.25 rpuw=030) GLUCOSE RANDOM (BEAKER) 76 mg/dL 70-105 (test uzkg=092) CALCIUM (BEAKER) (test 7.5 mg/dL 8.4-10.2 dyzj=779) EGFR (BEAKER) (test 46 mL/min/1.73 sq m ESTIMATED GFR IS NOT osgb=0319) ACCURATE CREATININE CLEARANCE IN PREDICTING GLOMERULAR FILTRATION RATE. ESTIMATED GFR IS NOT APPLICABLE FOR DIALYSIS PATIENTS. Specimen moderately ictericHEPATIC FUNCTION [id number] 06:53:00 Test Item Value Reference Range Comments TOTAL PROTEIN (BEAKER) (test ibpv=949) 5.6 gm/dL 6.0-8.3 ALBUMIN (BEAKER) (test gnnm=7143) 2.4 g/dL 3.5-5.0 BILIRUBIN TOTAL (BEAKER) (test rmby=295) 4.5 mg/dL 0.2-1.2 BILIRUBIN DIRECT (BEAKER) (test mizs=731) 2.7 mg/dL 0.1-0.5 ALKALINE PHOSPHATASE (BEAKER) (test wxzr=130) 74 U/L 40-150 AST (SGOT) (BEAKER) (test uxgc=420) 36 U/L 5-34 ALT (SGPT) (BEAKER) (test mxtr=036) 13 U/L 6-55 Specimen moderately ictericB-TYPE NATRIURETIC FACTOR (BNP)[id number] 06:52:00 Test Item Value Reference Range Comments B-TYPE NATRIURETIC PEPTIDE (BEAKER) (test 446 pg/mL 0-100 ggno=811) PROTHROMBIN [id number] 06:36:00 Test Item Value Reference Range Comments PROTIME (BEAKER) (test ajbk=897) 28.7 seconds 11.7-14.7 INR (BEAKER) (test ksbw=059) 2.7 <=5.9 RECOMMENDED COUMADIN/WARFARIN INR THERAPY RANGESSTANDARD DOSE: 2.0 - 3.0 Includes: PROPHYLAXIS forvenous thrombosis, systemic embolization; TREATMENT for venous thrombosis and/or pulmonary embolus.HIGH RISK: Target INR is 2.5-3.5 for patients with mechanical heart valves.EOSINOPHIL SMEAR, [id number] 21: 44:00 Test Item Value Reference Range Comments EOSINOPHIL SMEAR, URINE (BEAKER) (test No EOS seen No EOS seen ydlm=3375) CREATININE, RANDOM [id number] 18:02:00 Test Item Value Reference Range Comments CREATININE URINE (BEAKER) (test czjh=205) 96.3 mg/dL Reference Range: No NormalsSODIUM, RANDOM [id number] 18:02:00 Test Item Value Reference Range Comments SODIUM URINE (BEAKER) (test isyc=810) 58 meq/L Reference Range: No NormalsURINALYSIS W/ [id number] 17:33:00 Test Item Value Reference Range Comments COLOR (BEAKER) (test dyjl=883) Yellow CLARITY (BEAKER) (test kzwe=023) Clear SPECIFIC GRAVITY UA (BEAKER) (test raiw=235) 1.009 1.001-1.035 PH UA (BEAKER) (test bqxy=425) 6.0 5.0-8.0 PROTEIN UA (BEAKER) (test phmt=728) Negative Negative GLUCOSE UA (BEAKER) (test taab=407) Negative Negative KETONES UA (BEAKER) (test hmmb=162) Negative Negative BILIRUBIN UA (BEAKER) (test wmuc=737) Negative Negative BLOOD UA (BEAKER) (test btwq=726) Negative Negative NITRITE UA (BEAKER) (test euha=719) Negative Negative LEUKOCYTE ESTERASE UA (BEAKER) (test wvwq=186) Negative Negative UROBILINOGEN UA (BEAKER) (test ihxt=979) 4.0 mg/dL 0.2-1.0 RBC UA (BEAKER) (test lcre=411) < /HPF WBC UA (BEAKER) (test wcjo=551) 2 /HPF BACTERIA (BEAKER) (test asiw=265) Rare SOURCE(BEAKER) (test kzue=7408) CBC W/PLT COUNT & AUTO [id number] 06:53:00 Test Item Value Reference Range Comments WHITE BLOOD CELL COUNT (BEAKER) (test olkr=535) 3.5 K/ L 4.0-10.0 RED BLOOD CELL COUNT (BEAKER) (test ektp=846) 2.17 M/ L 4.20-5.80 HEMOGLOBIN (BEAKER) (test qzov=890) 7.9 GM/DL 13.0-16.8 HEMATOCRIT (BEAKER) (test bfbt=650) 23.9 % 40.0-50.0 MEAN CORPUSCULAR VOLUME (BEAKER) (test tqgq=510) 110.0 fL 82.0-98.0 MEAN CORPUSCULAR HEMOGLOBIN (BEAKER) (test 36.1 pg 27.0-33.0 podv=015) MEAN CORPUSCULAR HEMOGLOBIN CONC (BEAKER) (test 32.9 GM/DL 32.0-36.0 lysl=095) RED CELL DISTRIBUTION WIDTH (BEAKER) (test 14.0 % 10.3-14.2 uiiq=763) PLATELET COUNT (BEAKER) (test prhr=015) 77 K/CU MM 150-430 MEAN PLATELET VOLUME (BEAKER) (test yitb=784) 6.1 fL 6.5-10.5 NUCLEATED RED BLOOD CELLS (BEAKER) (test 0 /100 WBC 0-0 vane=859) NEUTROPHILS RELATIVE PERCENT (BEAKER) (test 56 % xjlo=059) LYMPHOCYTES RELATIVE PERCENT (BEAKER) (test 20 % spxh=878) MONOCYTES RELATIVE PERCENT (BEAKER) (test 18 % ghwx=738) EOSINOPHILS RELATIVE PERCENT (BEAKER) (test 6 % kknn=392) BASOPHILS RELATIVE PERCENT (BEAKER) (test 1 % gspc=883) NEUTROPHILS ABSOLUTE COUNT (BEAKER) (test 1.95 K/ L 1.80-8.00 kkrx=608) LYMPHOCYTES ABSOLUTE COUNT (BEAKER) (test 0.69 K/ L 1.48-4.50 tugx=630) MONOCYTES ABSOLUTE COUNT (BEAKER) (test ppiu=084) 0.62 K/ L 0.00-1.30 EOSINOPHILS ABSOLUTE COUNT (BEAKER) (test 0.20 K/ L 0.00-0.50 owdz=502) BASOPHILS ABSOLUTE COUNT (BEAKER) (test izap=422) 0.03 K/ L 0.00-0.20 0.00BASIC METABOLIC [id number] 06:45:00 Test Item Value Reference Range Comments SODIUM (BEAKER) (test 134 meq/L 136-145 fiht=014) POTASSIUM (BEAKER) (test 3.6 meq/L 3.5-5.1 ornw=989) CHLORIDE (BEAKER) (test 106 meq/L 98-107 xeyz=392) CO2 (BEAKER) (test 21 meq/L 22-29 xiza=967) BLOOD UREA NITROGEN 14 mg/dL 7-21 (BEAKER) (test wtla=215) CREATININE (BEAKER) (test 1.33 mg/dL 0.57-1.25 qrzx=267) GLUCOSE RANDOM (BEAKER) 71 mg/dL 70-105 (test mjhc=738) CALCIUM (BEAKER) (test 7.6 mg/dL 8.4-10.2 uytx=814) EGFR (BEAKER) (test 57 mL/min/1.73 sq m ESTIMATED GFR IS NOT wcjs=3882) ACCURATE CREATININE CLEARANCE IN PREDICTING GLOMERULAR FILTRATION RATE. ESTIMATED GFR IS NOT APPLICABLE FOR DIALYSIS PATIENTS. Specimen moderately ictericHEPATIC FUNCTION [id number] 06:40:00 Test Item Value Reference Range Comments TOTAL PROTEIN (BEAKER) (test auka=109) 5.6 gm/dL 6.0-8.3 ALBUMIN (BEAKER) (test xtjl=8307) 2.1 g/dL 3.5-5.0 BILIRUBIN TOTAL (BEAKER) (test fhes=897) 4.4 mg/dL 0.2-1.2 BILIRUBIN DIRECT (BEAKER) (test wced=446) 2.9 mg/dL 0.1-0.5 ALKALINE PHOSPHATASE (BEAKER) (test naoo=535) 86 U/L 40-150 AST (SGOT) (BEAKER) (test ratk=378) 45 U/L 5-34 ALT (SGPT) (BEAKER) (test euml=864) 13 U/L 6-55 Specimen moderately ictericPROTHROMBIN [id number] 06:05:00 Test Item Value Reference Range Comments PROTIME (BEAKER) (test aynf=300) 29.4 seconds 11.7-14.7 INR (BEAKER) (test falw=454) 2.8 <=5.9 RECOMMENDED COUMADIN/WARFARIN INR THERAPY RANGESSTANDARD DOSE: 2.0 - 3.0 Includes: PROPHYLAXIS forvenous thrombosis, systemic embolization; TREATMENT for venous thrombosis and/or pulmonary embolus.HIGH RISK: Target INR is 2.5-3.5 for patients with mechanical heart valves.BODY FLUID CELL COUNT WITH [id number] 20:51:00 Test Item Value Reference Range Comments APPEARANCE FLUID (BEAKER) (test huzh=527) Slightly Hazy Clear COLOR FLUID (BEAKER) (test jsuz=914) Yellow Colorless, Straw RBC FLUID (BEAKER) (test njby=047) 545 /cu mm <=1 ADJUSTED WBC FLUID (BEAKER) (test lqov=0155) 104 /cu mm <=5 LINING CELLS (BEAKER) (test nprr=9522) 1 /cu mm <=1 NEUTROPHILS FLUID (BEAKER) (test qvlc=4424) 3 % LYMPHS FLUID (BEAKER) (test hgwr=786) 13 % MONO/MACROPHAGE FLUID (BEAKER) (test 84 % hpiy=449) EOSINOPHILS FLUID (BEAKER) (test kveo=718) 0 % BASO FLUID (BEAKER) (test bpct=501) 0 % CONTAINER BODY FLUID (BEAKER) (test EDTA Tube kfog=6873) POCT-GLUCOSE [id number] 18:48:00 Test Item Value Reference Range Comments POC-GLUCOSE METER (BEAKER) 105 mg/dL 70-110 TESTED AT [address] (test pjlv=6465) [facility] [address] BASIC METABOLIC [id number] 05:45:00 Test Item Value Reference Range Comments SODIUM (BEAKER) (test 133 meq/L 136-145 gvvc=164) POTASSIUM (BEAKER) (test 4.3 meq/L 3.5-5.1 Specimen moderately neta=053) hemolyzed CHLORIDE (BEAKER) (test 107 meq/L 98-107 sbjz=672) CO2 (BEAKER) (test 19 meq/L 22-29 nxwq=917) BLOOD UREA NITROGEN 10 mg/dL 7-21 (BEAKER) (test nwvp=064) CREATININE (BEAKER) (test 0.86 mg/dL 0.57-1.25 Specimen moderately xqon=318) hemolyzed GLUCOSE RANDOM (BEAKER) 68 mg/dL 70-105 (test jdjx=860) CALCIUM (BEAKER) (test 7.5 mg/dL 8.4-10.2 ezmt=804) EGFR (BEAKER) (test 94 mL/min/1.73 sq m ESTIMATED GFR IS NOT xawd=0007) ACCURATE CREATININE CLEARANCE IN PREDICTING GLOMERULAR FILTRATION RATE. ESTIMATED GFR IS NOT APPLICABLE FOR DIALYSIS PATIENTS. Specimen slightly ictericHEPATIC FUNCTION [id number] 05:45:00 Test Item Value Reference Range Comments TOTAL PROTEIN (BEAKER) (test 5.9 gm/dL 6.0-8.3 Specimen moderately hemolyzed knci=424) ALBUMIN (BEAKER) (test 1.9 g/dL 3.5-5.0 Specimen moderately hemolyzed egjh=8411) BILIRUBIN TOTAL (BEAKER) (test 4.4 mg/dL 0.2-1.2 Specimen moderately hemolyzed hmel=033) BILIRUBIN DIRECT (BEAKER) 2.6 mg/dL 0.1-0.5 Specimen moderately hemolyzed (test cwks=711) ALKALINE PHOSPHATASE (BEAKER) 86 U/L 40-150 (test ihel=369) AST (SGOT) (BEAKER) (test 74 U/L 5-34 Specimen moderately hemolyzed gqll=013) ALT (SGPT) (BEAKER) (test 17 U/L 6-55 Specimen moderately gelx=905) hemolyzed Specimen slightly ictericCBC W/PLT COUNT & AUTO [id number] 05:21 :00 Test Item Value Reference Range Comments WHITE BLOOD CELL COUNT (BEAKER) (test hnhi=615) 3.5 K/ L 4.0-10.0 RED BLOOD CELL COUNT (BEAKER) (test zixc=467) 2.06 M/ L 4.20-5.80 HEMOGLOBIN (BEAKER) (test nisq=367) 7.9 GM/DL 13.0-16.8 HEMATOCRIT (BEAKER) (test qead=892) 22.8 % 40.0-50.0 MEAN CORPUSCULAR VOLUME (BEAKER) (test xgjo=655) 110.0 fL 82.0-98.0 MEAN CORPUSCULAR HEMOGLOBIN (BEAKER) (test 38.2 pg 27.0-33.0 hild=666) MEAN CORPUSCULAR HEMOGLOBIN CONC (BEAKER) (test 34.6 GM/DL 32.0-36.0 kuge=153) RED CELL DISTRIBUTION WIDTH (BEAKER) (test 13.5 % 10.3-14.2 bsau=131) PLATELET COUNT (BEAKER) (test winz=183) 61 K/CU MM 150-430 MEAN PLATELET VOLUME (BEAKER) (test fhsx=428) 6.8 fL 6.5-10.5 NUCLEATED RED BLOOD CELLS (BEAKER) (test 0 /100 WBC 0-0 khfr=242) NEUTROPHILS RELATIVE PERCENT (BEAKER) (test 51 % kdzs=348) LYMPHOCYTES RELATIVE PERCENT (BEAKER) (test 24 % cxnx=701) MONOCYTES RELATIVE PERCENT (BEAKER) (test 18 % luvr=259) EOSINOPHILS RELATIVE PERCENT (BEAKER) (test 7 % aapd=334) BASOPHILS RELATIVE PERCENT (BEAKER) (test 1 % iqqp=207) NEUTROPHILS ABSOLUTE COUNT (BEAKER) (test 1.76 K/ L 1.80-8.00 cdhq=820) LYMPHOCYTES ABSOLUTE COUNT (BEAKER) (test 0.85 K/ L 1.48-4.50 bfei=333) MONOCYTES ABSOLUTE COUNT (BEAKER) (test xltl=014) 0.61 K/ L 0.00-1.30 EOSINOPHILS ABSOLUTE COUNT (BEAKER) (test 0.23 K/ L 0.00-0.50 rexk=527) BASOPHILS ABSOLUTE COUNT (BEAKER) (test oyzo=559) 0.02 K/ L 0.00-0.20 0.00PROTHROMBIN [id number] 05:19:00 Test Item Value Reference Range Comments PROTIME (BEAKER) (test cgul=279) 28.2 seconds 11.7-14.7 INR (BEAKER) (test nmhr=942) 2.6 <=5.9 RECOMMENDED COUMADIN/WARFARIN INR THERAPY RANGESSTANDARD DOSE: 2.0 - 3.0 Includes: PROPHYLAXIS forvenous thrombosis, systemic embolization; TREATMENT for venous thrombosis and/or pulmonary embolus.HIGH RISK: Target INR is 2.5-3.5 for patients with mechanical heart valves.BODY FLUID CULTURE + GRAM [id number] 14:14:00 Test Item Value Reference Range Comments CULTURE (BEAKER) (test crnw=6873) No growth GRAM STAIN RESULT (BEAKER) (test 2+ WBCs qtzb=6458) GRAM STAIN RESULT (BEAKER) (test No organisms seen xkgh=28861) CBC W/PLT COUNT & AUTO [id number] 10:28:00 Test Item Value Reference Range Comments WHITE BLOOD CELL COUNT (BEAKER) (test xmxh=372) 3.6 K/ L 4.0-10.0 RED BLOOD CELL COUNT (BEAKER) (test exvc=919) 2.17 M/ L 4.20-5.80 HEMOGLOBIN (BEAKER) (test fvwg=561) 7.7 GM/DL 13.0-16.8 HEMATOCRIT (BEAKER) (test ogwg=611) 23.8 % 40.0-50.0 MEAN CORPUSCULAR VOLUME (BEAKER) (test nakj=927) 110.0 fL 82.0-98.0 MEAN CORPUSCULAR HEMOGLOBIN (BEAKER) (test 35.3 pg 27.0-33.0 wmld=009) MEAN CORPUSCULAR HEMOGLOBIN CONC (BEAKER) (test 32.1 GM/DL 32.0-36.0 kjhf=243) RED CELL DISTRIBUTION WIDTH (BEAKER) (test 13.7 % 10.3-14.2 vhhi=395) PLATELET COUNT (BEAKER) (test rsql=362) 62 K/CU MM 150-430 MEAN PLATELET VOLUME (BEAKER) (test qmus=986) 6.5 fL 6.5-10.5 NUCLEATED RED BLOOD CELLS (BEAKER) (test 0 /100 WBC 0-0 lxsh=687) NEUTROPHILS RELATIVE PERCENT (BEAKER) (test 58 % gdrt=406) LYMPHOCYTES RELATIVE PERCENT (BEAKER) (test 18 % pnux=305) MONOCYTES RELATIVE PERCENT (BEAKER) (test 17 % xktj=801) EOSINOPHILS RELATIVE PERCENT (BEAKER) (test 8 % xwuo=242) BASOPHILS RELATIVE PERCENT (BEAKER) (test 0 % ssxo=654) NEUTROPHILS ABSOLUTE COUNT (BEAKER) (test 2.10 K/ L 1.80-8.00 jesi=049) LYMPHOCYTES ABSOLUTE COUNT (BEAKER) (test 0.63 K/ L 1.48-4.50 dvnd=967) MONOCYTES ABSOLUTE COUNT (BEAKER) (test loli=671) 0.59 K/ L 0.00-1.30 EOSINOPHILS ABSOLUTE COUNT (BEAKER) (test 0.28 K/ L 0.00-0.50 npkh=534) BASOPHILS ABSOLUTE COUNT (BEAKER) (test pejq=549) 0.00 K/ L 0.00-0.20 [id number] 10:16:00 Test Item Value Reference Range Comments PROCALCITONIN (BEAKER) (test hbru=4051) < ng/mL <0.05 SEPSIS RISK (ng/mL)Low: 0.05-0.50Intermediate: 0.51-2.00High: & gt;=2.01HEPATIC FUNCTION [id number] 06:26:00 Test Item Value Reference Range Comments TOTAL PROTEIN (BEAKER) (test nmsj=952) 5.6 gm/dL 6.0-8.3 ALBUMIN (BEAKER) (test josl=6802) 1.9 g/dL 3.5-5.0 BILIRUBIN TOTAL (BEAKER) (test spte=297) 4.7 mg/dL 0.2-1.2 BILIRUBIN DIRECT (BEAKER) (test ikyr=080) 2.9 mg/dL 0.1-0.5 ALKALINE PHOSPHATASE (BEAKER) (test bidi=286) 85 U/L 40-150 AST (SGOT) (BEAKER) (test egby=748) 53 U/L 5-34 ALT (SGPT) (BEAKER) (test nxdk=656) 14 U/L 6-55 Specimen moderately ictericBASIC METABOLIC [id number] 06:26:00 Test Item Value Reference Range Comments SODIUM (BEAKER) (test 134 meq/L 136-145 daap=212) POTASSIUM (BEAKER) (test 3.8 meq/L 3.5-5.1 elcd=464) CHLORIDE (BEAKER) (test 107 meq/L 98-107 ovmo=152) CO2 (BEAKER) (test 19 meq/L 22-29 xugy=113) BLOOD UREA NITROGEN 8 mg/dL 7-21 (BEAKER) (test yeuk=646) CREATININE (BEAKER) (test 0.73 mg/dL 0.57-1.25 gpxr=459) GLUCOSE RANDOM (BEAKER) 73 mg/dL 70-105 (test nitq=596) CALCIUM (BEAKER) (test 7.2 mg/dL 8.4-10.2 kiof=376) EGFR (BEAKER) (test 113 mL/min/1.73 sq m ESTIMATED GFR IS NOT gjtz=5660) ACCURATE CREATININE CLEARANCE IN PREDICTING GLOMERULAR FILTRATION RATE. ESTIMATED GFR IS NOT APPLICABLE FOR DIALYSIS PATIENTS. Specimen moderately ictericPROTHROMBIN [id number] 06:05:00 Test Item Value Reference Range Comments PROTIME (BEAKER) (test lmcl=904) 30.9 seconds 11.7-14.7 INR (BEAKER) (test bkdr=051) 3.0 <=5.9 RECOMMENDED COUMADIN/WARFARIN INR THERAPY RANGESSTANDARD DOSE: 2.0 - 3.0 Includes: PROPHYLAXIS forvenous thrombosis, systemic embolization; TREATMENT for venous thrombosis and/or pulmonary embolus.HIGH RISK: Target INR is 2.5-3.5 for patients with mechanical heart valves.[id number] 05:54:00 Test Item Value Reference Range Comments PREALBUMIN (BEAKER) (test uyev=984) < mg/dL 14-45 URINE [id number] 12:11:00 Test Item Value Reference Range Comments CULTURE (BEAKER) (test isvv=5121) No growth VANCOMYCIN LEVEL, [id number] 09:26:00 Test Item Value Reference Range Comments VANCOMYCIN TROUGH (BEAKER) (test niqi=617) 15.3 ug/mL 10.0-20.0 HEPATIC FUNCTION [id number] 06:17:00 Test Item Value Reference Range Comments TOTAL PROTEIN (BEAKER) (test xvgr=309) 5.6 gm/dL 6.0-8.3 ALBUMIN (BEAKER) (test ecls=9140) 2.0 g/dL 3.5-5.0 BILIRUBIN TOTAL (BEAKER) (test rxjd=655) 4.2 mg/dL 0.2-1.2 BILIRUBIN DIRECT (BEAKER) (test ppim=767) 2.7 mg/dL 0.1-0.5 ALKALINE PHOSPHATASE (BEAKER) (test iahv=316) 98 U/L 40-150 AST (SGOT) (BEAKER) (test useh=810) 45 U/L 5-34 ALT (SGPT) (BEAKER) (test aykz=288) 12 U/L 6-55 Specimen slightly ictericBASIC METABOLIC [id number] 06:17:00 Test Item Value Reference Range Comments SODIUM (BEAKER) (test 133 meq/L 136-145 mlmn=458) POTASSIUM (BEAKER) (test 3.4 meq/L 3.5-5.1 tnyc=038) CHLORIDE (BEAKER) (test 107 meq/L 98-107 jzkn=177) CO2 (BEAKER) (test 22 meq/L 22-29 ypvj=894) BLOOD UREA NITROGEN 7 mg/dL 7-21 (BEAKER) (test kghl=085) CREATININE (BEAKER) (test 0.73 mg/dL 0.57-1.25 nxjt=404) GLUCOSE RANDOM (BEAKER) 87 mg/dL 70-105 (test roii=709) CALCIUM (BEAKER) (test 7.2 mg/dL 8.4-10.2 kjwh=093) EGFR (BEAKER) (test 113 mL/min/1.73 sq m ESTIMATED GFR IS NOT ifcr=3088) ACCURATE CREATININE CLEARANCE IN PREDICTING GLOMERULAR FILTRATION RATE. ESTIMATED GFR IS NOT APPLICABLE FOR DIALYSIS PATIENTS. Specimen slightly ictericPROTHROMBIN [id number] 06:04:00 Test Item Value Reference Range Comments PROTIME (BEAKER) (test zrzv=041) 31.7 seconds 11.7-14.7 INR (BEAKER) (test cxmh=072) 3.0 <=5.9 RECOMMENDED COUMADIN/WARFARIN INR THERAPY RANGESSTANDARD DOSE: 2.0 - 3.0 Includes: PROPHYLAXIS forvenous thrombosis, systemic embolization; TREATMENT for venous thrombosis and/or pulmonary embolus.HIGH RISK: Target INR is 2.5-3.5 for patients with mechanical heart valves.VITAMIN B12 AND [id number] 19:36 :00 Test Item Value Reference Range Comments VITAMIN B12 (BEAKER) (test qfya=299) 1121 pg/mL 213-816 FOLATE (BEAKER) (test mvqc=018) 18.3 ng/mL >=7.0 Effective 09/13/2014: Folate Reference Range ChangeNew: >=7.0 Previous: & gt;=5.4VITAMIN B12 AND [id number] 14:57:00 Test Item Value Reference Range Comments VITAMIN B12 (BEAKER) (test nuzv=682) 1325 pg/mL 213-816 FOLATE (BEAKER) (test nfan=833) 8.3 ng/mL >=7.0 Effective 09/13/2014: Folate Reference Range ChangeNew: >=7.0 Previous: & gt;=5.4ANTI-NUCLEAR ANTIBODY (CHERYL)2017-02-03 13:56:00 Test Item Value Reference Range Comments ANTI-NUCLEAR ANTIBODY (CHERYL) (BEAKER) (test Negative Negative xdht=162) HEPATITIS B CORE ANTIBODY, [id number] 12:27:00 Test Item Value Reference Range Comments HEPATITIS B CORE TOTAL ANTIBODY (BEAKER) (test Nonreactive Nonreactive pjjf=873) CRYPTOCOCCAL [id number] 11:25:00 Test Item Value Reference Range Comments CRYPTOCOCCAL ANTIGEN, SERUM (BEAKER) (test Negative Negative, Interference brbk=7621) HEPATITIS B SURFACE [id number] 11:15:00 Test Item Value Reference Range Comments HEPATITIS B SURFACE ANTIBODY (BEAKER) (test < mIU/mL <8.0 xscu=377) HEPATITIS B SURFACE [id number] 09:53:00 Test Item Value Reference Range Comments HEPATITIS B SURFACE ANTIGEN (2) (BEAKER) (test Nonreactive Nonreactive kekn=4067) HIV-1 ANTIGEN WITH HIV-1/2 [id number] 09:53:00 Test Item Value Reference Range Comments HIV-1 ANTIGEN WITH HIV 1\T\2 ANTIBODY (2) Nonreactive Nonreactive (BEAKER) (test ktcq=4250) HEPATIC FUNCTION [id number] 07:01:00 Test Item Value Reference Range Comments TOTAL PROTEIN (BEAKER) (test gbnj=214) 5.5 gm/dL 6.0-8.3 ALBUMIN (BEAKER) (test pxzd=8824) 2.0 g/dL 3.5-5.0 BILIRUBIN TOTAL (BEAKER) (test nsgm=381) 3.8 mg/dL 0.2-1.2 BILIRUBIN DIRECT (BEAKER) (test qgtj=304) 2.5 mg/dL 0.1-0.5 ALKALINE PHOSPHATASE (BEAKER) (test tsur=066) 108 U/L 40-150 AST (SGOT) (BEAKER) (test jmzq=388) 40 U/L 5-34 ALT (SGPT) (BEAKER) (test ktwd=417) 10 U/L 6-55 Specimen slightly ictericBASIC METABOLIC [id number] 07:01:00 Test Item Value Reference Range Comments SODIUM (BEAKER) (test 133 meq/L 136-145 kapz=837) POTASSIUM (BEAKER) (test 3.7 meq/L 3.5-5.1 rock=274) CHLORIDE (BEAKER) (test 108 meq/L 98-107 gvjo=864) CO2 (BEAKER) (test 20 meq/L 22-29 qpcs=859) BLOOD UREA NITROGEN 7 mg/dL 7-21 (BEAKER) (test jplo=645) CREATININE (BEAKER) (test 0.76 mg/dL 0.57-1.25 aqxe=370) GLUCOSE RANDOM (BEAKER) 100 mg/dL 70-105 (test hkxo=517) CALCIUM (BEAKER) (test 7.3 mg/dL 8.4-10.2 opuk=605) EGFR (BEAKER) (test 108 mL/min/1.73 sq m ESTIMATED GFR IS NOT qjle=7293) ACCURATE CREATININE CLEARANCE IN PREDICTING GLOMERULAR FILTRATION RATE. ESTIMATED GFR IS NOT APPLICABLE FOR DIALYSIS PATIENTS. Specimen slightly ictericCBC W/PLT COUNT & AUTO [id number] 06:53 :00 Test Item Value Reference Range Comments WHITE BLOOD CELL COUNT (BEAKER) (test lflb=275) 3.5 K/ L 4.0-10.0 RED BLOOD CELL COUNT (BEAKER) (test rlam=572) 1.83 M/ L 4.20-5.80 HEMOGLOBIN (BEAKER) (test outg=211) 7.3 GM/DL 13.0-16.8 HEMATOCRIT (BEAKER) (test hlmz=828) 19.9 % 40.0-50.0 MEAN CORPUSCULAR VOLUME (BEAKER) (test xmav=359) 109.0 fL 82.0-98.0 MEAN CORPUSCULAR HEMOGLOBIN (BEAKER) (test 39.9 pg 27.0-33.0 ycei=427) MEAN CORPUSCULAR HEMOGLOBIN CONC (BEAKER) (test 36.6 GM/DL 32.0-36.0 ntqa=599) RED CELL DISTRIBUTION WIDTH (BEAKER) (test 14.3 % 10.3-14.2 svag=346) PLATELET COUNT (BEAKER) (test mofp=432) 35 K/CU MM 150-430 MEAN PLATELET VOLUME (BEAKER) (test idwu=302) 6.6 fL 6.5-10.5 NUCLEATED RED BLOOD CELLS (BEAKER) (test 0 /100 WBC 0-0 ogqk=487) NEUTROPHILS RELATIVE PERCENT (BEAKER) (test 60 % cece=146) LYMPHOCYTES RELATIVE PERCENT (BEAKER) (test 18 % erkv=253) MONOCYTES RELATIVE PERCENT (BEAKER) (test 17 % fmqo=912) EOSINOPHILS RELATIVE PERCENT (BEAKER) (test 6 % tplp=934) BASOPHILS RELATIVE PERCENT (BEAKER) (test 0 % ewus=686) NEUTROPHILS ABSOLUTE COUNT (BEAKER) (test 2.06 K/ L 1.80-8.00 tvjh=914) LYMPHOCYTES ABSOLUTE COUNT (BEAKER) (test 0.61 K/ L 1.48-4.50 envp=624) MONOCYTES ABSOLUTE COUNT (BEAKER) (test xrlz=727) 0.58 K/ L 0.00-1.30 EOSINOPHILS ABSOLUTE COUNT (BEAKER) (test 0.19 K/ L 0.00-0.50 rvvo=496) BASOPHILS ABSOLUTE COUNT (BEAKER) (test gelj=284) 0.01 K/ L 0.00-0.20 0.00PROTHROMBIN [id number] 06:39:00 Test Item Value Reference Range Comments PROTIME (BEAKER) (test orgx=453) 30.6 seconds 11.7-14.7 INR (BEAKER) (test mpvb=369) 2.9 <=5.9 RECOMMENDED COUMADIN/WARFARIN INR THERAPY RANGESSTANDARD DOSE: 2.0 - 3.0 Includes: PROPHYLAXIS forvenous thrombosis, systemic embolization; TREATMENT for venous thrombosis and/or pulmonary embolus.HIGH RISK: Target INR is 2.5-3.5 for patients with mechanical heart valves.URINALYSIS W/ [id number] 16 :58:00 Test Item Value Reference Range Comments COLOR (BEAKER) (test llxp=389) Yellow CLARITY (BEAKER) (test wcyk=668) Clear SPECIFIC GRAVITY UA (BEAKER) (test 1.025 1.001-1.035 xtsl=199) PH UA (BEAKER) (test reuz=012) 7.0 5.0-8.0 PROTEIN UA (BEAKER) (test pfnu=138) Negative Negative GLUCOSE UA (BEAKER) (test wxsi=058) Negative Negative KETONES UA (BEAKER) (test zkjt=690) Negative Negative BILIRUBIN UA (BEAKER) (test nqul=471) Positive Negative BLOOD UA (BEAKER) (test mord=899) Negative Negative NITRITE UA (BEAKER) (test tjer=477) Negative Negative LEUKOCYTE ESTERASE UA (BEAKER) (test Negative Negative fqkb=401) UROBILINOGEN UA (BEAKER) (test ogkb=441) 8.0 mg/dL 0.2-1.0 RBC UA (BEAKER) (test cepq=957) 0 /HPF WBC UA (BEAKER) (test xjjm=051) 2 /HPF MUCUS (BEAKER) (test worz=3053) Rare HYALINE CASTS (BEAKER) (test hgvx=423) 3 /LPF SOURCE(BEAKER) (test cgwx=6212) Urine, Clean Catch [id number] 13:32:00 Test Item Value Reference Range Comments FERRITIN (BEAKER) (test azok=788) 116 ng/mL 5-275 Effective 09/13/2014: Reference Range ChangeNew: Male 5-275 Previous: Male 22-322 Female 5-275 Female 10-291HEPATITIS A ANTIBODY, [id number] 13:19:00 Test Item Value Reference Range Comments HEPATITIS A IGG ANTIBODY (BEAKER) (test tzls=8836) Reactive Nonreactive ALPHA FETOPROTEIN (AFP), TUMOR [id number] 13:17:00 Test Item Value Reference Range Comments ALPHA-FETOPROTEIN (BEAKER) (test vuzy=6043) 4.5 ng/mL <10.0 Effective 09/13/2014: Reference Range ChangeNew: <10.0 Previous: 0.0- 8.0HEPATITIS C [id number] 13:17:00 Test Item Value Reference Range Comments HEPATITIS C ANTIBODY (BEAKER) (test nqpt=724) Nonreactive Nonreactive BODY FLUID CELL COUNT WITH [id number] 13:03:00 Test Item Value Reference Range Comments APPEARANCE FLUID (BEAKER) (test aeed=709) Cloudy Clear COLOR FLUID (BEAKER) (test vgfy=429) Yellow Colorless, Straw RBC FLUID (BEAKER) (test grrr=338) 1519 /cu mm <=1 ADJUSTED WBC FLUID (BEAKER) (test nupy=2267) 108 /cu mm <=5 LINING CELLS (BEAKER) (test htvr=5297) 14 /cu mm <=1 NEUTROPHILS FLUID (BEAKER) (test fmwq=9182) 11 % LYMPHS FLUID (BEAKER) (test ctzb=292) 30 % MONO/MACROPHAGE FLUID (BEAKER) (test ngsc=300) 59 % EOSINOPHILS FLUID (BEAKER) (test vqaw=595) 0 % BASO FLUID (BEAKER) (test omts=955) 0 % CONTAINER BODY FLUID (BEAKER) (test brui=8073) EDTA Tube BASIC METABOLIC [id number] 12:56:00 Test Item Value Reference Range Comments SODIUM (BEAKER) (test 131 meq/L 136-145 vjbl=694) POTASSIUM (BEAKER) (test 4.0 meq/L 3.5-5.1 Specimen moderately hxyp=988) hemolyzed CHLORIDE (BEAKER) (test 105 meq/L 98-107 skve=623) CO2 (BEAKER) (test 18 meq/L 22-29 bihj=909) BLOOD UREA NITROGEN 6 mg/dL 7-21 (BEAKER) (test ljcb=155) CREATININE (BEAKER) (test 0.72 mg/dL 0.57-1.25 Specimen moderately dimv=805) hemolyzed GLUCOSE RANDOM (BEAKER) 103 mg/dL 70-105 (test zize=691) CALCIUM (BEAKER) (test 7.4 mg/dL 8.4-10.2 lkhc=493) EGFR (BEAKER) (test 115 mL/min/1.73 sq m ESTIMATED GFR IS NOT vmop=9458) ACCURATE CREATININE CLEARANCE IN PREDICTING GLOMERULAR FILTRATION RATE. ESTIMATED GFR IS NOT APPLICABLE FOR DIALYSIS PATIENTS. Specimen moderately ictericIRON, TIBC, % SAT. (WITHOUT FERRITIN)2017-02-02 12:56 :00 Test Item Value Reference Range Comments IRON (BEAKER) (test iyjc=538) 55 ug/dL 40-160 TOTAL IRON BINDING CAPACITY (BEAKER) (test 175 ug/dL 250-450 rnqp=944) IRON % SATURATION (2) (BEAKER) (test pnfm=1911) 31 % 20-55 HEPATIC FUNCTION [id number] 12:50:00 Test Item Value Reference Range Comments TOTAL PROTEIN (BEAKER) (test 6.7 gm/dL 6.0-8.3 Specimen moderately hemolyzed mdfj=310) ALBUMIN (BEAKER) (test 2.0 g/dL 3.5-5.0 Specimen moderately hemolyzed ohfu=6477) BILIRUBIN TOTAL (BEAKER) (test 5.1 mg/dL 0.2-1.2 Specimen moderately hemolyzed eycw=525) BILIRUBIN DIRECT (BEAKER) 2.8 mg/dL 0.1-0.5 Specimen moderately hemolyzed (test tmoi=664) ALKALINE PHOSPHATASE (BEAKER) 99 U/L 40-150 (test nhyw=492) AST (SGOT) (BEAKER) (test 62 U/L 5-34 Specimen moderately hemolyzed nler=651) ALT (SGPT) (BEAKER) (test 15 U/L 6-55 Specimen moderately laju=706) hemolyzed Specimen moderately ictericCBC W/PLT COUNT & AUTO [id number] 12: 47:00 Test Item Value Reference Range Comments WHITE BLOOD CELL COUNT (BEAKER) (test erza=835) 3.3 K/ L 4.0-10.0 RED BLOOD CELL COUNT (BEAKER) (test bqlp=765) 2.08 M/ L 4.20-5.80 HEMOGLOBIN (BEAKER) (test kvvu=543) 7.8 GM/DL 13.0-16.8 HEMATOCRIT (BEAKER) (test tyvo=224) 22.9 % 40.0-50.0 MEAN CORPUSCULAR VOLUME (BEAKER) (test sphy=323) 110.0 fL 82.0-98.0 MEAN CORPUSCULAR HEMOGLOBIN (BEAKER) (test 37.4 pg 27.0-33.0 rohz=372) MEAN CORPUSCULAR HEMOGLOBIN CONC (BEAKER) (test 34.1 GM/DL 32.0-36.0 ommd=245) RED CELL DISTRIBUTION WIDTH (BEAKER) (test 15.0 % 10.3-14.2 wjib=980) PLATELET COUNT (BEAKER) (test tjvh=030) 48 K/CU MM 150-430 MEAN PLATELET VOLUME (BEAKER) (test ytoj=100) 6.6 fL 6.5-10.5 NUCLEATED RED BLOOD CELLS (BEAKER) (test 0 /100 WBC 0-0 nqpx=050) NEUTROPHILS RELATIVE PERCENT (BEAKER) (test 62 % rdpc=169) LYMPHOCYTES RELATIVE PERCENT (BEAKER) (test 17 % shyw=516) MONOCYTES RELATIVE PERCENT (BEAKER) (test 15 % qnrv=813) EOSINOPHILS RELATIVE PERCENT (BEAKER) (test 6 % vkam=469) BASOPHILS RELATIVE PERCENT (BEAKER) (test 0 % mrwv=446) NEUTROPHILS ABSOLUTE COUNT (BEAKER) (test 2.03 K/ L 1.80-8.00 wpgr=098) LYMPHOCYTES ABSOLUTE COUNT (BEAKER) (test 0.57 K/ L 1.48-4.50 wghq=871) MONOCYTES ABSOLUTE COUNT (BEAKER) (test vwvr=967) 0.48 K/ L 0.00-1.30 EOSINOPHILS ABSOLUTE COUNT (BEAKER) (test 0.19 K/ L 0.00-0.50 sevn=257) BASOPHILS ABSOLUTE COUNT (BEAKER) (test epkc=158) 0.01 K/ L 0.00-0.20 0.00PROTHROMBIN [id number] 12:42:00 Test Item Value Reference Range Comments PROTIME (BEAKER) (test lvry=609) 27.0 seconds 11.7-14.7 INR (BEAKER) (test hszy=963) 2.5 <=5.9 RECOMMENDED COUMADIN/WARFARIN INR THERAPY RANGESSTANDARD DOSE: 2.0 - 3.0 Includes: PROPHYLAXIS forvenous thrombosis, systemic embolization; TREATMENT for venous thrombosis and/or pulmonary embolus.HIGH RISK: Target INR is 2.5-3.5 for patients with mechanical heart valves.ALBUMIN, BODY [id number] 11:46:00 Test Item Value Reference Range Comments ALBUMIN FLUID (BEAKER) (test waig=675) 0.5 gm/dL Reference Range: No Normals Assay performance has not been validated for this type of specimen.PROTEIN, BODY [id number] 11:42:00 Test Item Value Reference Range Comments PROTEIN FLUID (BEAKER) (test ncsk=889) 1.3 g/dL Absence of reference range indicates that normals have not been defined.Assay performance has not been validated for this type of specimen.
--- OUTSIDE RECORDS SUMMARY | 2018-05-04 21:30 | XMS REPORT ---
[...] Status Dosage System Date Date Midodrine HCl [facility] 94119473448 10 MG Orally Active 1 tablet Three times a day Pantoprazole [facility] 57376868151 40 MG Orally Active 1 tablet Sodium Once a day Sodium Chloride ND 87484306879 1 GM Orally TID Active 2 tablets Ondansetron HCl ND 59299180360 4 MG Orally Active 1 tab every 8 hours as needed for Nausea and vomiting Hydrocortisone ND 94626363667 20 MG Orally AM Active 1 tablet Once a day with food or milk Ursodiol ND 12780109186 300 MG Orally Active not defined Lactulose ND 53866823087 10 GM/15ML Active 15 ml Orally TID Citalopram [facility] 09615165414 10 MG Active TAKE ONE Hydrobromide DAILY Rifaximin [facility] [address]-79 550 MG Orally Active 1 tablet Twice a day Ondansetron HCl [facility] 25311768364 4 MG Active 1 TAB EVERY 8 HOURS NEEDED FOR NAUSEA AND VOMITING ORALLY 10 DAYS Magnesium Oxide [facility] 73392857711 400 MG Orally Active 1 tablet BID as needed NuFera [facility] 12197508707 - Orally once a Active 1 tab day Hydrocortisone [facility] 42055869785 10 MG Orally PM Active 1 tablet Once a day with food or milk Results No Known Results Summary Purpose eClinicalWorks Submission
--- OUTSIDE RECORDS SUMMARY | 2018-05-04 21:30 | XMS REPORT ---
[...] Status Dosage System Date Date Ondansetron HCl [facility] 94132761026 4 MG Orally Active 1 tab every 8 hours as needed for Nausea and vomiting Hydrocortisone ND 33764079574 20 MG Orally AM Active 1 tablet Once a day with food or milk Magnesium Oxide ND 91906112465 400 MG Orally Active 1 tablet BID as needed Rifaximin [facility] [address]-35 550 MG Orally Active 1 tablet Twice a day Pantoprazole ND 36706669848 40 MG Orally Active 1 tablet Sodium Once a day Sodium Chloride ND 47348931019 1 GM Orally TID Active 2 tablets Lactulose ND 96132767062 10 GM/15ML Active 15 ml Orally TID Ondansetron HCl [facility] 59334858526 4 MG Active 1 TAB EVERY 8 HOURS NEEDED FOR NAUSEA AND VOMITING ORALLY 10 DAYS Citalopram [facility] 61922243128 40 MG Orally Active take one Hydrobromide once a day daily Hydrocortisone [facility] 00721278470 10 MG Orally PM Active 1 tablet Once a day with food or milk NuFera [facility] 41582536919 - Orally once a Active 1 tab day Citalopram [facility] 76299602505 10 MG Active TAKE ONE Hydrobromide DAILY Ursodiol [facility] 93712087186 300 MG Orally Active not defined Midodrine HCl [facility] 11050585016 10 MG Orally Active 1 tablet Three times a day Results No Known Results Summary Purpose eClinicalWorks Submission
--- NOTE | 2018-05-04 23:09 | RAD REPORT ---
EXAM DESCRIPTION: RAD - Chest Single View - 05/04/2018 11:00 pm CLINICAL HISTORY: COUGH Chest pain. COMPARISON: Chest Single View dated 03/09/2018; Chest Single View dated 02/13/2018; Chest Single View dated 12/27/2017; Chest Single View dated 12/05/2017 FINDINGS: Portable technique limits examination quality. The lungs are underinflated with subsegmental atelectasis in the left lung base. The heart is normal in size. No displaced fractures. IMPRESSION: Underinflated lungs with subsegmental atelectasis in the left lung base.
[2018-05-04 23:36] LABS: Protime INR 1.71
[2018-05-04 23:44] LABS: Absolute Lymphocytes (CBC) 0.6 K/uL (0.7-4.9); Absolute Monocytes 0.8 K/uL (0.1-1.3); Absolute Neutrophil 3.5 K/uL (1.8-8.0); Basophils % 0.2 % (0-1.3); Eosinophils % 1.6 % (0-4.4); Hematocrit 22.7 % (39.6-49.0); Lymphocytes % 11.7 % (15.3-44.8); MCH 32.9 pg (27.0-35.0); MCV 92.9 fL (80-100); MPV 6.8 fL (7.6-11.3); Monocytes % 15.8 % (3.3-12.3); RBC Red Blood Cell Count 2.45 M/uL (4.33-5.43)
[2018-05-04] MEDS ORDERED: PANTOPRAZOLE 40 MG INJ ONE (23:45)
[2018-05-04] MEDS ORDERED: NA CHLORIDE 0.9% 1,000 ML ONE (23:45)
[2018-05-04 23:50] LABS: Urine Blood NEGATIVE (NEG); Urine Glucose NEGATIVE (NEG); Urine Protein NEGATIVE (NEG); Urine Specific Gravity 1.015 (1.005-1.030); Urine pH 5.5 (5.0-7.0)
[2018-05-04 23:55] LABS: ALT/SGPT 12 U/L (12-78); AST/SGOT 21 U/L (15-37); Albumin 3.2 g/dL (3.4-5.0); Alkaline Phosphatase 132 U/L (45-117); BUN Blood Urea Nitrogen 29 mg/dL (7-18); Bicarbonate 28 mmol/L (21-32); Bilirubin Direct 2.5 mg/dL (0-0.2); Bilirubin Total 3.7 mg/dL (0.2-1.0); CKMB Creatine Kinase MB < 1.0 ng/mL (0.3-3.6); Creatine Phosphokinase 17 U/L (39-308); Glucose Level 115 mg/dL (74-106); Lipase 92 U/L (73-393); Magnesium 2.3 mg/dL (1.8-2.4); NT PRO-BNP 731 pg/mL (<125); Potassium 4.5 mmol/L (3.5-5.1); Protein, Total 5.9 g/dL (6.4-8.2); Sodium Level 130 mmol/L (136-145)
--- NOTE | 2018-05-05 01:17 | ER ---
Nurse's Notes [facility] Name: Abhishek Davis Age: 52 yrs Sex: Male : 1965 Arrival Date: 05/04/2018 Time: 21:24 Bed 15 Private MD: Diagnosis: Fall due to bumping against object;Unspecified cirrhosis of liver;Alcoholic cirrhosis of liver;Fracture of thoracic vertebra-compression fractures T 11, T 12;Fracture of second lumbar vertebra-COMPRESSION;Anemia, unspecified;Ascites;Fracture of first lumbar vertebra-TRANSVERSE PROCESS FRACTURE;Fracture of third lumbar vertebra-transverse process fracture Presentation: 05/04 21:32 Presenting complaint: EMS states: Patient had paracentesis and had a fall. Was kr2 seen in ER for the fall, diagnosed with gallstones and sent home. Since he has had multiple falls everyday, the worst fall being today. Resulting in lower back pain. Multiple bruises to upper arms and back. Denies hitting his head or losing consciousness. Family reports he has been very weak and off balance as well as confused at times. Transition of care: patient was not received from another setting of care. Onset of symptoms was April 30, 2018. Risk Assessment: Do you want to hurt yourself or someone else? Patient reports no desire to harm self or others. Initial Sepsis Screen: Does the patient meet any 2 criteria? No. Patient's initial sepsis screen is negative. Does the patient have a suspected source of infection? No. Patient's initial sepsis screen is negative. Care prior to arrival: None. 21:32 Method Of Arrival: EMS: [facility] kr2 21:32 Acuity: KACEY 3 kr2 Triage Assessment: 21:35 General: Appears in no apparent distress. Behavior is calm, cooperative. Pain: kr2 Complains of pain in lower back Pain does not radiate. Pain currently is 7 out of 10 on a pain scale. Quality of pain is described as aching, tender, Is continuous, Alleviated by rest, Aggravated by increased activity. Historical: - Allergies: 21:36 No Known Allergies; kr2 - Home Meds: 22:22 ursodiol 300 mg Oral cap 1 cap 2 times per day [Active]; Lactulose Oral 30 mL 3 times kr2 per day [Active]; midodrine 5 mg Oral tab twice a day [Active]; mag oxide 400 mg daily [Active]; citalopram 10 mg tab 1 tab once daily [Active]; Xifaxan 550 mg Oral tab 1 tab 2 times per day [Active]; Lasix 40 mg Oral tab 1 tab once daily [Active]; Centrum Oral daily [Active]; - PMHx: 21:36 Anemia; Cirrhosis; renal insufficiency; Umbilical hernia; kr2 - Immunization history:: Adult Immunizations unknown. - Social history:: Smoking status: Patient/guardian denies using tobacco. - Ebola Screening: : No symptoms or risks identified at this time. - Family history:: not pertinent. Screenin:34 Abuse screen: Denies threats or abuse. Denies injuries from another. Nutritional kr2 screening: No deficits noted. Tuberculosis screening: No symptoms or risk factors identified. Fall Risk None identified. Assessment: 21:35 General: Appears in no apparent distress. uncomfortable, well groomed, well developed, kr2 Behavior is calm, cooperative, appropriate for age. Pain: Complains of pain in back, see triage assessment. Neuro: Level of Consciousness is awake, alert, obeys commands, Oriented to person, place, time, situation, confused at times. Neuro: Reports dizziness. Cardiovascular: Capillary refill < 3 seconds in bilateral fingers Patient's skin is warm and dry. Cardiovascular: Reports fatigue. Respiratory: Airway is patent Respiratory effort is even, unlabored, Respiratory pattern is regular, symmetrical. GI: Abdomen is round distended, noted to have ascites. : Denies burning with urination. EENT: Oral mucosa is dry. Derm: Skin is intact, with poor turgor Skin is jaundiced, pale, Skin temperature is warm Bruising that is dark purple, on back, right arm and left arm. Musculoskeletal: Circulation, motion, and sensation intact. Range of motion: limited in all extremities. 22:52 Reassessment: Patient in radiology department at this time. kr2 23:51 Reassessment: Patient appears in no apparent distress at this time. Patient and/or kr2 family updated on plan of care and expected duration. Pain level reassessed. Patient is alert, oriented x 3, equal unlabored respirations, skin warm/dry/pink. 05/05 00:26 Reassessment: Patient appears in no apparent distress at this time. Patient and/or kr2 family updated on plan of care and expected duration. Pain level reassessed. Patient is alert, oriented x 3, equal unlabored respirations, skin warm/dry/pink. Patient denies pain at this time. 03:02 Reassessment: GAVE REPORT ON [facility]. AWAITING EMS FOR TRANSPORT. rv Vital Signs: 05/04 21:36 BP 91 / 64; Pulse 79; Resp 20; Temp 98.4; Pulse Ox 95% on 2 lpm NC; Weight 76.2 kg; kr2 Height 6 ft. (182.88 cm); Pain /; 23:49 BP 96 / 75; Pulse 74; Resp 18; Pulse Ox 96% on 2 lpm NC; kr2 05/05 00:40 BP 97 / 75; Pulse 75; Resp 17; Pulse Ox 95% on 2 lpm NC; kr2 02:06 BP 102 / 77; Pulse 74; Resp 16; Pulse Ox 94% on 3 lpm NC; rv 05/04 21:36 Body Mass Index 22.78 (76.20 kg, 182.88 cm) kr2 ED Course: 05/04 21:24 Patient arrived in ED. fc 21:31 Elena Antonio, RN is Primary Nurse. kr2 21:34 Triage completed. kr2 21:35 Arm band placed on. kr2 21:37 Patient has correct armband on for positive identification. Bed in low position. Call kr2 light in reach. Side rails up X2. Adult w/ patient. site monitor on. Pulse ox on. NIBP on. Door closed. Warm blanket given. Head of bed elevated. 22:23 Stanislaw Stratton MD is Attending Physician. marquise 22:[address] via stretcher. nj 22:51 CT Traumagram (Head C Spine CAP wo con) In Process Unspecified. EDMS 22:51 CT completed. Patient tolerated procedure well. Patient moved back from CT. nj 22:59 XRAY Chest (1 view) In Process Unspecified. EDMS 23:05 Inserted saline lock: 22 gauge in right antecubital area, using aseptic technique. kr2 Blood collected. 23:10 Initial lab(s) drawn, by sd, sent to lab. First set of blood cultures drawn by me. EKG kr2 done, by ED staff, reviewed by Stanislaw Stratton MD. 23:25 Second set of blood cultures drawn. kr2 05/05 03:18 No provider procedures requiring assistance completed. Patient transferred, IV remains rv in place. intact. Administered Medications: 05/04 23:47 Drug: NS 0.9% 1000 ml Route: IV; Rate: 100 ml/hr; Site: right antecubital; kr2 23:47 Drug: ProTONIX 40 mg Route: IVP; Site: right antecubital; kr2 05/05 01:39 Drug: Lactulose 30 grams Volume: 45 ml; Route: PO; rv Outcome: 01:16 ER care complete, transfer ordered by MD. [place] 03:18 Transferred by ground EMS to [facility], Transfer form completed. rv 03:18 Condition: stable 03:18 Discharge instructions given to patient, family, Instructed on the need for transfer. 03:18 Patient left the ED. rv Signatures: Dispatcher [employer] EDMS Stanislaw Stratton MD MD cha Chretien, Felicia, RN RN Alexey Vivas Karey, RN RN kr2 Nima Singleton RN RN rv Corrections: (The following items were deleted from the chart) 00:34 05/04 21:35 Derm: Skin is intact, with poor turgor Skin is jaundiced, pale, Skin kr2 temperature is warm kr2 05/05 00:41 05/04 23:49 BP 96 / 75; Pulse 74bpm; Resp 18bpm; Pulse Ox 96% RA; kr2 kr2
--- NOTE | 2018-05-05 01:17 | EDPHYS ---
Physician Documentation [facility] Name: Abhishek Davis Age: 52 yrs Sex: Male : 1965 Arrival Date: 05/04/2018 Time: 21:24 Bed 15 Private MD: ED Physician Stanislaw Stratton HPI: 05/05 01:05 This 52 yrs old Male presents to ER via EMS with complaints of Weakness - marquise Multiple falls. 01:05 The patient presents to the emergency department with weakness of the entire body, marquise generalized weakness. Onset: The symptoms/episode began/occurred 5 day(s) ago. Context: occurred at home. 01:06 The patient presents with pain that is acute, and decreased range of motion. The marquise symptoms are located in the low back, lumbar area. Onset: The symptoms/episode began/occurred 4 day(s) ago. The pain does not radiate. Associated signs and symptoms: The patient has no apparent associated signs or symptoms. Modifying factors: The patient symptoms are alleviated by remaining still, the patient symptoms are aggravated by movement. Severity of symptoms: At their worst the symptoms were moderate. Severity of symptoms: At their worst the symptoms were moderate in the emergency department the symptoms are worse. Historical: - Allergies: 05/04 21:36 No Known Allergies; kr2 - Home Meds: 22:22 ursodiol 300 mg Oral cap 1 cap 2 times per day [Active]; Lactulose Oral 30 mL 3 times kr2 per day [Active]; midodrine 5 mg Oral tab twice a day [Active]; mag oxide 400 mg daily [Active]; citalopram 10 mg tab 1 tab once daily [Active]; Xifaxan 550 mg Oral tab 1 tab 2 times per day [Active]; Lasix 40 mg Oral tab 1 tab once daily [Active]; Centrum Oral daily [Active]; - PMHx: 21:36 Anemia; Cirrhosis; renal insufficiency; Umbilical hernia; kr2 - Immunization history:: Adult Immunizations unknown. - Social history:: Smoking status: Patient/guardian denies using tobacco. - Ebola Screening: : No symptoms or risks identified at this time. - Family history:: not pertinent. ROS: 05/05 01:06 Constitutional: Negative for fever, chills, and weight loss, Eyes: Negative for injury, marquise pain, redness, and discharge, ENT: Negative for injury, pain, and discharge, Neck: Negative for injury, pain, and swelling, Cardiovascular: Negative for chest pain, palpitations, and edema, Respiratory: Negative for shortness of breath, cough, wheezing, and pleuritic chest pain, : Negative for injury, bleeding, discharge, and swelling, MS/Extremity: Negative for injury and deformity, Skin: Negative for injury, rash, and discoloration, Psych: Negative for depression, anxiety, suicide ideation, homicidal ideation, and hallucinations, Allergy/Immunology: Negative for hives, rash, and allergies, Endocrine: Negative for neck swelling, polydipsia, polyuria, polyphagia, and marked weight changes, Hematologic/Lymphatic: Negative for swollen nodes, abnormal bleeding, and unusual bruising. Abdomen/GI: Positive for abdominal distension. Back: Positive for decreased range of motion, pain at rest, pain with movement, of the lumbar area. Back: Positive for Neuro: Positive for dizziness, weakness, of the right leg and left leg. Exam: 01:06 Constitutional: This is a well developed, well nourished patient who is awake, alert, marquise and in no acute distress. Head/Face: Normocephalic, atraumatic. Eyes: Pupils equal round and reactive to light, extra-ocular motions intact. Lids and lashes normal. Conjunctiva and sclera are non-icteric and not injected. Cornea within normal limits. Periorbital areas with no swelling, redness, or edema. ENT: Nares patent. No nasal discharge, no septal abnormalities noted. Tympanic membranes are normal and external auditory canals are clear. Oropharynx with no redness, swelling, or masses, exudates, or evidence of obstruction, uvula midline. Mucous membranes moist. Neck: Trachea midline, no thyromegaly or masses palpated, and no cervical lymphadenopathy. Supple, full range of motion without nuchal rigidity, or vertebral point tenderness. No Meningismus. Chest/axilla: Normal chest wall appearance and motion. Nontender with no deformity. No lesions are appreciated. Cardiovascular: Regular rate and rhythm with a normal S1 and S2. No gallops, murmurs, or rubs. Normal PMI, no JVD. No pulse deficits. Respiratory: Lungs have equal breath sounds bilaterally, clear to auscultation and percussion. No rales, rhonchi or wheezes noted. No increased work of breathing, no retractions or nasal flaring. Abdomen/GI: Soft, non-tender, with normal bowel sounds. No distension or tympany. No guarding or rebound. No evidence of tenderness throughout. Male : Normal genitalia with no discharge or lesions. Skin: Warm, dry with normal turgor. Normal color with no rashes, no lesions, and no evidence of cellulitis. MS/ Extremity: Pulses equal, no cyanosis. Neurovascular intact. Full, normal range of motion. Psych: Awake, alert, with orientation to person, place and time. Behavior, mood, and affect are within normal limits. 01:06 Back: ROM is painful, normal spinal alignment noted, CVA tenderness, is absent, vertebral tenderness, is appreciated at T9, T10, T11, T12, L1 and L2, muscle spasm, is appreciated in the left low back, left mid back, right mid back and right low back. Vital Signs: 05/04 21:36 BP 91 / 64; Pulse 79; Resp 20; Temp 98.4; Pulse Ox 95% on 2 lpm NC; Weight 76.2 kg; kr2 Height 6 ft. (182.88 cm); Pain 7/10; 23:49 BP 96 / 75; Pulse 74; Resp 18; Pulse Ox 96% on 2 lpm NC; kr2 05/05 00:40 BP 97 / 75; Pulse 75; Resp 17; Pulse Ox 95% on 2 lpm NC; 2 02:06 BP 102 / 77; Pulse 74; Resp 16; Pulse Ox 94% on 3 lpm NC; rv 05/04 21:36 Body Mass Index 22.78 (76.20 kg, 182.88 cm) [facility] MDM: 05/04 22:23 Patient medically screened. [facility] 05/05 01:06 Data reviewed: vital signs, nurses notes, lab test result(s), EKG, radiologic studies, [facility] CT scan, plain films. 05/04 22:26 Order name: Basic Metabolic Panel; Complete Time: 00:15 [facility] 05/04 22:26 Order name: CBC with Diff [facility] 05/04 22: Order name: Ckmb; Complete Time: 00:15 [facility] 05/04 22:26 Order name: CPK; Complete Time: 00:15 [facility] 05/04 22:26 Order name: LFT's; Complete Time: 00:15 [facility] 05/04 22:26 Order name: Magnesium; Complete Time: 00:15 [facility] 05/04 22:26 Order name: NT PRO-BNP; Complete Time: 00:15 [facility] 05/04 22:26 Order name: PT-INR; Complete Time: 00:15 [facility] 05/04 22:26 Order name: Ptt, Activated; Complete Time: 00:15 [facility] 05/04 22:26 Order name: Troponin (emerg Dept Use Only); Complete Time: 00:15 [facility] 05/04 22:26 Order name: Lipase; Complete Time: 00:15 [facility] 05/04 22:26 Order name: Blood Culture Adult (2) [facility] 05/04 22:26 Order name: AMMONIA; Complete Time: 00:15 [facility] 05/04 22:26 Order name: Type And Screen; Complete Time: 00:58 [facility] 05/04 22:26 Order name: XRAY Chest (1 view); Complete Time: 00:15 [facility] 05/04 22:26 Order name: EKG; Complete Time: 22:27 [facility] 05/04 22:26 Order name: Cardiac monitoring; Complete Time: 23:33 [facility] 05/04 22:26 Order name: EKG - Nurse/Tech; Complete Time: 23:33 [facility] 05/04 22:26 Order name: IV Saline Lock; Complete Time: 23:33 [facility] 05/04 22:26 Order name: Labs collected and sent; Complete Time: 23:33 [facility] 05/04 22:26 Order name: O2 Per Protocol; Complete Time: 23:33 [facility] 05/04 22:26 Order name: O2 Sat Monitoring; Complete Time: 23:33 [facility] 05/04 22:26 Order name: Urine Dipstick-Ancillary (obtain specimen); Complete Time: 00:10 [facility] 05/04 22:26 Order name: CT Traumagram (Head C Spine CAP wo con) [facility] 05/04 22:26 Order name: Urine Culture: viscus lido [facility] 05/04 23:47 Order name: Urine Dipstick--Ancillary (enter results); Complete Time: 00:15 [facility] 05/05 01:39 Order name: CBC Smear Scan EDMS Administered Medications: 05/04 23:47 Drug: NS 0.9% 1000 ml Route: IV; Rate: 100 ml/hr; Site: right antecubital; kr2 23:47 Drug: ProTONIX 40 mg Route: IVP; Site: right antecubital; kr2 05/05 01:39 Drug: Lactulose 30 grams Volume: 45 ml; Route: PO; rv Disposition: 05/05/18 01:16 Transfer ordered to [facility]. Diagnosis are Fall due to bumping against object, Unspecified cirrhosis of liver, Alcoholic cirrhosis of liver, Fracture of thoracic vertebra - compression fractures T 11, T 12, Fracture of second lumbar vertebra - COMPRESSION, Anemia, unspecified, Ascites, Fracture of first lumbar vertebra - TRANSVERSE PROCESS FRACTURE, Fracture of third lumbar vertebra - transverse process fracture. - Reason for transfer: Higher level of care. - Accepting physician is to liver team, [facility]. - Condition is Fair. - Problem is new. - Symptoms are unchanged. Signatures: Dispatcher [employer] EDMS Stanislaw Stratton MD MD cha Reaves, Karey, RN RN kr2 Nima Singleton RN RN rv Corrections: (The following items were deleted from the chart) 16 01:16 05/05/2018 01:16 Transfer ordered to [facility]. Diagnosis is marquise Fall due to bumping against object; Unspecified cirrhosis of liver; Alcoholic cirrhosis of liver; Fracture of thoracic vertebra - compression fractures T 11, T 12; Fracture of second lumbar vertebra - COMPRESSION. Reason for transfer: Higher level of care. Accepting physician is to liver team, [facility]. Condition is Fair. Problem is new. Symptoms are unchanged. marquise :18 01:16 05/05/2018 01:16 Transfer ordered to [facility]. Diagnosis is marquise Fall due to bumping against object; Unspecified cirrhosis of liver; Alcoholic cirrhosis of liver; Fracture of thoracic vertebra - compression fractures T 11, T 12; Fracture of second lumbar vertebra - COMPRESSION; Anemia, unspecified; Ascites. Reason for transfer: Higher level of care. Accepting physician is to liver team, [facility]. Condition is Fair. Problem is new. Symptoms are unchanged. marquise 03:18 01:18 05/05/2018 01:16 Transfer ordered to [facility]. Diagnosis is rv Fall due to bumping against object; Unspecified cirrhosis of liver; Alcoholic cirrhosis of liver; Fracture of thoracic vertebra - compression fractures T 11, T 12; Fracture of second lumbar vertebra - COMPRESSION; Anemia, unspecified; Ascites; Fracture of first lumbar vertebra - TRANSVERSE PROCESS FRACTURE; Fracture of third lumbar vertebra - transverse process fracture. Reason for transfer: Higher level of care. Accepting physician is to liver team, [facility]. Condition is Fair. Problem is new. Symptoms are unchanged. marquise
[2018-05-05] MEDS ORDERED: LACTULOSE 20 GM/30 ML UCUP ONE (01:35)
[2018-05-05 01:38] LABS: Blood Morphology Comment NOT SEEN (NOT SEEN); Platelet Estimate DECR; Urine White Blood Cell Casts OK
[2018-05-05 03:26] VITALS: TEMP 98.4
[2018-05-05 03:30] VITALS: BP 102/77; O2SAT 94
--- NOTE | 2018-05-05 06:30 | EKG ---
Test Date: 2018-05-04 Test Time: 23:15:37 Narrative Writer: KOBI MEASUREMENT RESULTS: Intervals: Rate: 74 MI: 170 QRSD: 94 QT: 426 QTc: 472 [place]: P: 44 MI: 170 QRS: 3 T: 26 INTERPRETIVE STATEMENTS: Normal sinus rhythm Normal ECG Compared to ECG 03/09/2018 10:50:41 No significant changes Electronically Signed On 05-05-18 06:29:40 CDT by Ghanshyam Young
--- NOTE | 2018-05-05 08:22 | RAD REPORT ---
EXAM DESCRIPTION: CT - Head C Spine Cap Wo Con - 05/05/2018 6:40 am CLINICAL HISTORY: Trauma, head and neck injury. Chest, abdomen and pelvis pain. Fall, trauma. COMPARISON: Abdomen Pelvis Wo Contrast dated 04/30/2018; Abdomen Pelvis Wo Contrast dated 8; Head Brain Wo Cont dated 03/09/2018; Head C Spine Cap W Con dated 02/14/2018; Abdomen Pelvis W Co ntrast dated 12/10/2017 TECHNIQUE: CT head without contrast. CT cervical spine without contrast with coronal and sagittal reformatted images. CT chest, abdomen and pelvis without contrast with coronal and sagittal reformatted images of the [place] [employer] [facility]. All CT scans are performed using dose optimization technique as appropriate and may include automated exposure control or mA/KV adjustment according to patient size. FINDINGS: CT HEAD WITHOUT CONTRAST: No intracranial hemorrhage, hydrocephalus or extra-axial fluid collection. Mild generalized brain atr ophy is present with mild periventricular and deep white matter chronic microvascular ischemic change s. No areas of brain edema or midline shift. The paranasal sinuses and mastoids are clear. The calvarium is intact. CT CERVICAL SPINE WITHOUT CONTRAST: No fracture or subluxation. The prevertebral soft tissues are normal in thickness. CT CHEST, ABDOMEN, PELVIS WITHOUT CONTRAST: NOTE: Lack of contrast is a significant limitation in the assessment of trauma related findings. Spec ifically, solid organ, vascular and bowel evaluation is significantly limited. The lungs are clear.No pneumothorax or pericardial/pleural fluid. Bilateral gynecomastia is present. Hepatic cirrhosis is noted with significant ascites. Extensive cholelithiasis. Anterior abdominal wal l defect with ascitic fluid within a anterior abdominal hernia. No concerning pelvic findings. Compression fractures involve T11, T12 and L2. These are new since January 2018 comparative study. S2 v ertebral body fractures also noted of indeterminate age. Old left-sided rib fractures. IMPRESSION: [id number] compression fractures involving T11, T12 and L2, new since January 2018 s sheryl. Hepatic cirrhosis with large volume of ascites. Extensive cholelithiasis.
== END 2018-05-05 03:18 | disposition short-term general hospital (02) ==
LOC: ER 21:21
DX: K70.30 Alcoholic cirrhosis of liver without ascites (principal); S22.080A Wedge compression fracture of T11-T12 vertebra, initial encounter for closed fracture; S32.020A Wedge compression fracture of second lumbar vertebra, initial encounter for closed fracture; S32.019A Unspecified fracture of first lumbar vertebra, initial encounter for closed fracture; S32.039A Unspecified fracture of third lumbar vertebra, initial encounter for closed fracture; R18.8 Other ascites; D64.9 Anemia, unspecified; W18.00XA Striking against unspecified object with subsequent fall, initial encounter; Y93.9 Activity, unspecified; Y92.9 Unspecified place or not applicable
CPT/HCPCS: 36415; 70450; 71045; 71250; 72125; 80048; 80076; 81003; 82140; 82550; 82553; 83690; 83735; 83880; 84484; 85025; 85610; 85730; 86850; 86900; 86901; 87040; 87086; 87088; 93005; 96374; 99285; C9113; J7030

== ENCOUNTER 2018-08-13 14:50 | Emergency (ER) | payer MEDICAID ==
--- OUTSIDE RECORDS SUMMARY | 2018-08-13 14:54 | XMS REPORT | Clinical Summary ---
:1965 Author Organization [facility] Address [address] [place] [address] Phone Care Team Providers Name Role Phone Unavailable Primary Care Provider Unavailable Allergies No Known Allergies Current Medications Prescription Sig. Disp. Refills Start End Status Date Date citalopram (CELEXA) Take 10 mg by Active 10 MG mouth daily. tabletIndications: Alcoholic cirrhosis of liver with ascites (HCC) [id number] Take by mouth. Active olic acid (MULTIVITAMIN-IRON- MINERALS-FOLIC ACID) 3,500-18-0.4 unit-mg-mg Chew diphenhydrAMINE Take 25 mg by Active (BENADRYL) 25 mg mouth nightly. tablet lactulose Take 30 ml three 2200 mL 3 Active (CHRONULAC) 10 times a day to 8 gram/15 mL accomplish 2-3 solutionIndications bowel movements : Hepatic daily.. encephalopathy (HCC) midodrine Take 2 tablets (10 120 tablet 0 Active (PROAMATINE) 5 MG mg total) by mouth 8 tabletIndications: 2 (two) times Hypotension, daily. unspecified hypotension type, Alcoholic cirrhosis of liver with ascites (HCC) calcitonin, salmon, 1 spray by Nasal 3.7 mL 0 Active (MIACALCIN) 200 route daily. 8 019 unit/actuation nasal spray ursodiol (ACTIGALL) Take 1 capsule 60 capsule 3 Active 300 mg (300 mg total) by 8 capsuleIndications: mouth 2 (two) Alcoholic cirrhosis times daily. of liver with ascites (HCC), Awaiting organ transplant status rifAXIMin 550 mg Take 1 tablet (550 60 tablet 3 Active TabIndications: mg total) by mouth 8 Alcoholic cirrhosis 2 (two) times of liver with daily. ascites (HCC), Awaiting organ transplant status ondansetron Take 1 tablet (4 30 tablet 0 Active (ZOFRAN) 4 MG mg total) by mouth 8 tabletIndications: 2 (two) times Alcoholic cirrhosis daily as needed of liver with for Nausea. ascites (HCC), Awaiting organ transplant status multivitamin Take 1 tablet by 90 tablet 3 (THERAGRAN) tablet mouth daily. 7 018 folic acid Take 1 tablet (1 90 tablet 3 (FOLVITE) 1 MG mg total) by mouth 7 018 tablet daily. furosemide (LASIX) Take 1 tablet (20 30 tablet 2 Discontinued 20 MG tablet mg total) by mouth 7 018 daily. lactulose Take 20 g by mouth Discontinued (CHRONULAC) 20 3 (three) times 018 gram/30 mL daily. solutionIndications : Alcoholic cirrhosis of liver with ascites (HCC) pantoprazole Take 40 mg by Discontinued (PROTONIX) 40 MG mouth daily. 018 tabletIndications: Alcoholic cirrhosis of liver with ascites (HCC) spironolactone Take 50 mg by Discontinued (ALDACTONE) 50 MG mouth 2 (two) 018 tabletIndications: times daily. Alcoholic cirrhosis of liver with ascites (HCC) ciprofloxacin HCl Take 1 tablet (500 4 tablet 0 (CIPRO) 500 MG mg total) by mouth 7 017 tablet once a week for 28 days. furosemide (LASIX) Take 1 tablet (20 30 tablet 0 Discontinued 20 MG tablet mg total) by mouth 7 018 daily. lactulose Take 30 mLs (20 g 3000 mL 0 Discontinued (CHRONULAC) 20 total) by mouth 3 7 018 gram/30 mL solution (three) times daily. spironolactone Take 1 tablet (50 30 tablet 0 Discontinued (ALDACTONE) 50 MG mg total) by mouth 7 018 tablet 2 (two) times daily. midodrine Take 1 tablet (5 90 tablet 1 (PROAMATINE) 5 MG mg total) by mouth 8 018 tablet 3 (three) times daily for 30 days. hydrOXYzine Take 1 tablet (10 30 tablet 0 (ATARAX) 10 MG mg total) by mouth 8 018 tablet 4 (four) times daily as needed for Itching for up to 10 days. hydrocortisone Take 1 tablet (20 30 tablet 1 (CORTEF) 20 MG mg total) by mouth 8 018 tablet daily for 30 days. hydrocortisone Take 1 tablet (10 30 tablet 1 (CORTEF) 10 MG mg total) by mouth 8 018 tablet nightly for 30 days. lactulose Take 30 mLs (20 g 2700 mL 1 Discontinued (CHRONULAC) 20 total) by mouth 3 8 018 gram/30 mL solution (three) times daily for 30 days. ursodiol (ACTIGALL) Take 300 mg by Discontinued 300 mg capsule mouth 3 (three) 018 times daily. ursodiol (ACTIGALL) Take 1 capsule 90 capsule 1 300 mg capsule (300 mg total) by 8 018 mouth 3 (three) times daily for 30 days. lactulose Take 30 mLs (20 g 300 mL 1 Discontinued (CHRONULAC) 20 total) by mouth 3 8 018 gram/30 mL (three) times solutionIndications daily. : Alcoholic cirrhosis of liver with ascites (HCC) pantoprazole Take 1 tablet (40 30 tablet 1 (PROTONIX) 40 MG mg total) by mouth 8 018 tabletIndications: daily for 30 days. Alcoholic cirrhosis of liver with ascites (HCC) furosemide (LASIX) Take 1 tablet (40 30 tablet 3 Discontinued 40 MG mg total) by mouth 8 018 tabletIndications: daily. Alcoholic cirrhosis of liver with ascites (HCC), Portal hypertensive gastropathy (HCC) ursodiol (ACTIGALL) Take 300 mg by Discontinued 300 mg capsule mouth 2 (two) 018 times daily . lactulose Take 10 g by mouth Discontinued (CEPHULAC) 10 gram 3 (three) times 018 packet daily. midodrine Take 10 mg by Discontinued (PROAMATINE) 5 MG mouth 2 (two) 018 tablet times daily . magnesium oxide Take 400 mg by Discontinued (MAG-OX) 400 mg mouth 2 (two) 018 tablet times daily. ondansetron Take 4 mg by mouth Discontinued (ZOFRAN) 4 MG 2 (two) times 018 tablet daily as needed for Nausea. PEG Use as directed. 1 packet 0 Discontinued [id number] 8 018 itamin C (MOVIPREP) 100-7.5-2.691 gram PwPk packetIndications: Screen for colon cancer MOVIPREP USE DIRECTED 1 packet 0 Discontinued 100-7.5-2.691 gram 8 018 PwPk packetIndications: Screen for colon cancer rifAXIMin 550 mg Take 550 mg by Discontinued Tab mouth 2 (two) 018 times daily. ursodiol (ACTIGALL) Take 1 capsule 60 capsule 0 Discontinued 300 mg (300 mg total) by 8 018 capsuleIndications: mouth 2 (two) Alcoholic cirrhosis times daily. of liver with ascites (HCC) acetaminophen Take 1 tablet (500 30 tablet 0 (TYLENOL) 500 MG mg total) by mouth 8 018 tablet every 8 (eight) hours for 10 days. traMADol (ULTRAM) Take 2 tablets 30 tablet 0 50 mg tablet (100 mg total) by 8 018 mouth every 6 (six) hours as needed for up to 10 days. Max Daily Amount: 400 mg famotidine (PEPCID) Take 1 tablet (20 60 tablet 0 20 MG tablet mg total) by mouth 8 018 2 (two) times daily for 30 days. docusate sodium Take 1 capsule 10 capsule 0 (COLACE) 100 MG (100 mg total) by 8 018 capsule mouth 2 (two) times daily for [address] 2 patches 30 patch 0 (LIDODERM) 5 % onto the skin 8 018 patch daily for 30 days Remove & Discard patch within 12 hours or as directed by MD. octreotide Inject 1 mL (100 90 mL 0 (SANDOSTATIN) 100 mcg total) 8 018 mcg/mL Soln subcutaneously 3 (three) times daily for 30 days. ondansetron Take 1 tablet (4 30 tablet 0 Discontinued (ZOFRAN) 4 MG mg total) by mouth 8 018 tabletIndications: 2 (two) times Alcoholic cirrhosis daily as needed of liver with for Nausea. ascites (HCC), Awaiting organ transplant status Active Problems Problem Noted Date Coagulopathy (HCC) 05/07/2018 Mild protein-calorie malnutrition (HCC) 05/06/2018 Hepatic encephalopathy (HCC) 05/06/2018 Portal hypertension (HCC) 05/06/2018 Compression fracture of body of thoracic vertebra (HCC) 05/05/2018 Lumbar compression fracture, closed, initial encounter (HCC) 05/05/2018 Risk for falls 03/03/2018 CAD (coronary artery disease) 02/23/2018 Pancytopenia (HCC) 01/05/2018 Sarcopenia 01/05/2018 Portal hypertensive gastropathy (HCC) 01/05/2018 Hyponatremia 01/05/2018 Hyperkalemia 01/05/2018 Hypotension 01/05/[address] scan, chest 01/05/2018 H/O alcohol abuse 01/05/2018 Adrenal insufficiency (HCC) 01/05/2018 POLLY (acute kidney injury) (HCC) 12/29/2017 Hepatorenal syndrome (HCC) 12/27/2017 Symptomatic anemia 09/03/2017 Acute kidney injury (HCC) 02/07/2017 Ascites 02/02/2017 Tachycardia 02/02/2017 Alcoholic cirrhosis of liver with ascites (HCC) 02/02/2017 Fever 02/02/2017 Encounters Date Type Specialty Care Team Description Orders Only Transplant Hepatology Kelsie Smith Alcoholic cirrhosis 8 F, RN of liver with ascites (HCC);Awaiting organ transplant status Telephone Transplant Hepatology Kelsie Smith Follow-up 8 F, RN Hospital Encounter Radiology Kasi Franklin 8 MD Gavi Hospital Encounter Radiology Kasi Franklin 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 8 E Scheduled 08/18 clinic appt. 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 8 E Returning spouse's call.) Telephone Transplant Hepatology Meggan Erickson Appointment ( LVM. 8 E Calling to confirm 06/02 appt w/pt.) Telephone Central Scheduling Meggan Erickson Appointment 8 E (Scheduled 08/05 bone scan w/spouse. Itinerary mailed.) Orders Only Transplant Hepatology Ade Arriaga Alcoholic cirrhosis 8 C, RN of liver with ascites (HCC) Orders Only Transplant Hepatology Ade Arriaga Incomplete lesion of 8 C, RN L3 level of lumbar spinal cord, subsequent encounter (HCC) (Primary Dx);Lesion of lung Telephone Transplant Hepatology Ade Arriaga encephalopathy 8 C, RN Procedure Pass 8 Surgery Virtual, Surgeon PROCEDURE DONE 8 OUTSIDE OR Anesthesia Event Valerie Dumont MD Hospital Encounter General Internal ChangelaChristelle Alcoholic cirrhosis 8 - Edgar Parks MD of liver with ascites Efren Ogden (HCC) (Primary 8 RMD Kenzie Dx);Ascites due to AylaRamu MD hepatitis;Compression fracture of body of thoracic vertebra (HCC);Hyponatremia;Cindy mbar compression fracture, closed, initial encounter (HCC);Portal hypertensive gastropathy (HCC);Symptomatic anemia;Acute kidney injury (HCC);Other ascites;Risk for falls;Sarcopenia;POLLY (acute kidney injury) (HCC);Hepatic encephalopathy (HCC);Portal hypertension (HCC) Telephone Transplant Hepatology Ade Arriaga Follow-up 8 C, RN Orders Only Transplant Hepatology Ade Arriaga Alcoholic cirrhosis 8 C, RN of liver with ascites (HCC) Hospital Encounter Radiology Suraj, Rise Encounter for 8 MD Clau pre-transplant evaluation for liver transplant;Screening for malignant neoplasm Follow-Up Transplant Hepatology Woody Malave Vomiting and diarrhea 8 MD Noman (Primary Dx);Pruritus Telephone Transplant Hepatology Gema Hong, IV albumin 100 gm 8 RN Orders Only Transplant Hepatology Ade Arriaga Alcoholic cirrhosis 8 C, RN of liver with ascites (HCC) Telephone Transplant Hepatology Meggan Erickson Appointment 8 E (Scheduled 06/02 followup appt w/spouse. Itinerary mailed.) UNOS Charge Visit Transplant Hepatology Karina Benton, Valerie HURT Provider, Unos Registry Generic Telephone Transplant Hepatology Meggan Erickson Appointment ( LVM. 8 E Calling to confirm 04/28 appts w/pt.) Telephone Transplant Hepatology Ade Arriaga Follow-up 8 C, RN Abstract Transplant Hepatology Ade Arriaga 8 C, RN Orders Only Transplant Hepatology Ade Arriaga Alcoholic cirrhosis 8 C, RN of liver with ascites (HCC) Telephone Transplant Hepatology Ade Arriaga Labs Only 8 C, RN Orders Only Transplant Hepatology Luis Manuel Arriagain Alcoholic cirrhosis 8 C, RN of liver with ascites (HCC) (Primary Dx) Orders Only Transplant Hepatology Corina Ade Alcoholic cirrhosis 8 C, RN of liver with ascites (HCC) (Primary Dx);Acute kidney injury (HCC);Chronic liver failure with hepatic coma (HCC);POLLY (acute kidney injury) (HCC);Pancytopenia (HCC) Telephone Transplant Hepatology Luis Manuel Arriagain Labs Only 8 C, RN Telephone Transplant Hepatology Corina Ade Follow-up 8 C, RN Orders Only Transplant [...] Noman chest Hospital Encounter Gastroenterology Michael Davison, Valerie HURT Procedure Pass Gastroenterology 8 Surgery Gastroenterology Michael Davison, COLONOSCOPY 8 Hospital Encounter Pre-Admission Testing Michael Davison, Valerie HURT Anesthesia Event Gastroenterology Artem Chavarria MD Refill Hepatology Michael Davison, Screen for colon 8 cancer Telephone Transplant Hepatology Meggan Erickson Appointment ( LVM. 8 E Calling to schedule [facility] and possible MRI (Check w/Ade).) Telephone Transplant Hepatology Meggan Erickson Appointment 8 E (Scheduled 03/[address] w/spouse. Itinerary mailed.) Telephone Transplant Hepatology Meggan Erickson Appointment ( LVM. 8 E Calling to schedule PET scan) Telephone Hepatology Selin Chambers, Appointment 8 RN (colonoscopy) Documentation Transplant Hepatology Meggan Erickson 8 E Orders Only Hepatology Selin Chambers, Screen for colon 8 RN cancer (Primary Dx) Telephone Hepatology Heena Garrido Procedure 8 (Colonoscopy) Telephone Transplant Hepatology Meggan Erickson Appointment 8 E (Rescheduled NM CTchest w/spouse. [...] C, RN chest (Primary Dx) Hospital Encounter Rinku, Abnormal CT scan, 8 MD Tom chest Procedure Pass 8 Surgery Rinku, R & L CATH / CORONARY 8 MD Tom ANGIOS (+/- LV) Orders Only Transplant Hepatology Ade Arriaga Encounter for 8 Bozena, RN pre-transplant evaluation for liver transplant (Primary Dx);Abnormal CT scan, chest;Screening for malignant neoplasm Telephone Transplant Hepatology Ade Arriaga Follow-up 8 Bozena RN Telephone Transplant Hepatology Meggan Erickson Appointment ( LVM. 8 E Calling to confirm 03/03 clinic appt w/pt.) Follow-Up Transplant Hepatology Kasi Franklin Itching (Primary 8 MD Gavi Dx);Abnormal CT scan, Maylinl Prasun chest;Acute kidney MD Noman injury (HCC);Alcoholic cirrhosis of liver with ascites (HCC);Other ascites;Portal hypertensive gastropathy (HCC);Sarcopenia Telephone Transplant Hepatology Meggan Erickson Appointment ( LVM. 8 E Calling too confirm 02/03 clinic appt.) Abstract Transplant Hepatology Mohini Nair R Valerie Documentation Transplant Hepatology Ade Arriaga 8 Bozena RN Telephone Transplant Hepatology Meggan Erickson Appointment ( LVM. 8 E Calling to confirm 02/03 clinic appt. Itinerary mailed.) Telephone Transplant Hepatology Meggan Erickson 8 E Procedure Pass Gastroenterology 8 Surgery Gastroenterology Jarred Kumari, UPPER ENDOSCOPY 8 MD Anesthesia Event Gastroenterology Balbir Siegel 8 SHIV Gardner Procedure Pass 8 Documentation Transplant Hepatology Law Mohini R 8 Documentation Transplant Hepatology Law Mohini R Valerie Orders Only General Internal 8 Medicine Abstract Transplant Hepatology Karina Benton 8 Hospital Encounter General Internal Brann, Alcoholic cirrhosis 8 - Medicine Christopher of liver with ascites MD Ghanshyam (HCC) [...] RN Documentation Transplant Hepatology Ade Arriaga, RN after 08/12/2017 Immunizations Name Dates Previously Given Next Due [...] Vital Sign Reading Time Taken Blood Pressure 112/75 06/02/2018 12:43 PM CDT Pulse 104 06/02/2018 12:43 PM CDT Temperature 36.9 C (98.4 F) 06/02/2018 12:43 PM CDT Respiratory Rate 18 06/02/2018 12:43 PM CDT Oxygen Saturation 95% 06/02/2018 12:43 PM CDT Inhaled Oxygen Concentration - - Weight 75.1 kg (165 lb 8 oz) 06/02/2018 12:43 PM CDT Height 182.9 cm (6') 06/02/2018 12:43 PM CDT Body Mass Index 22.45 06/02/2018 12:43 PM CDT Plan of Treatment Date Type Specialty Care Team Description 08/18/2018 Follow-Up Transplant Hepatology Health Maintenance Due Date Last Done Comments INFLUENZA VACCINE 07/27/2018 Procedures Procedure Name Priority Date/Time Associated Diagnosis Comments PROCEDURE DONE OUTSIDE 05/08/2018 1:00 PM Lumbar compression OR CDT fracture, sequela Special Needs COLONOSCOPY 03/25/2018 2:00 PM CDT Pre-transplant evaluation for liver transplant R & L CATH / CORONARY 02/23/2018 10:26 AM CDT Encounter for pre-transplant ANGIOS (+/- LV) evaluation for liver transplant Case Notes (2) POP6 POSSIBLE PCI COLONOSCOPY 01/02/2018 9:00 AM AEROSPACE QUALITY ENGINEER Other iron deficiency anemia UPPER ENDOSCOPY 01/02/2018 9:00 AM AEROSPACE QUALITY ENGINEER Other iron deficiency anemia after 08/12/2017 Results NM bone scan whole body (08/05/2018 4:09 PM) Specimen Performing Laboratory GE RIS Narrative FINAL REPORT PROCEDURE: BONE SCAN, WHOLE BODY CPT CODE:54404 INDICATION:L3 vertebral body lesion follow-upR91.1 PROTOCOL:21.6 mCi of Tc-99m MDP was injected intravenously. Whole body and selected spot images were obtained approximately 3 hours later. FINDINGS: There is focal marked increase in activity in the medial aspect of the right clavicle and mild to moderate increase in activity in multiple costochondral junctions bilaterally. There is additional moderate focal increase in the anterior aspect of left ribs 3-5 and right rib four. There is mild to moderate increase in activity in T12-S1 with greatest increase in the lower lumbar spine. Focal increase in tracer activity in the shoulders, elbows, wrists, hips, knees, ankles, and feet. IMPRESSION: 1. No specific evidence to indicate bony neoplastic disease. 2. Multiple rib and vertebral lesions consistent with prior trauma of varying ages. Comparison was made with CT Abdomen/Pelvis dated 05/08/2018. Signed: Ashutosh Tolliver MD Report Verified Date/Time:08/05/2018 16:45:34 Reading Location: [address] [place] [address] Reading Room Procedure Note Interface, External Ris In - 08/05/2018 4:47 PM CDT FINAL REPORT PROCEDURE: BONE SCAN, WHOLE BODY CPT CODE: 54922 INDICATION: L3 vertebral body lesion follow-up R91.1 PROTOCOL: 21.6 mCi of Tc-99m MDP was injected intravenously. Whole body and selected spot images were obtained approximately 3 hours later. FINDINGS: There is focal marked increase in activity in the medial aspect of the right clavicle and mild to moderate increase in activity in multiple costochondral junctions bilaterally. There is additional moderate focal increase in the anterior aspect of left ribs 3-5 and right rib four. There is mild to moderate increase in activity in T12-S1 with greatest increase in the lower lumbar spine. Focal increase in tracer activity in the shoulders, elbows, wrists, hips, knees, ankles, and feet. IMPRESSION: 1. No specific evidence to indicate bony neoplastic disease. 2. Multiple rib and vertebral lesions consistent with prior trauma of varying ages. Comparison was made with CT Abdomen/Pelvis dated 05/08/2018. Signed: Ashutosh Tolliver MD Report Verified Date/Time: 08/05/2018 16:45:34 Reading Location: [address] Reading Room with platelet count + automated diff (06/02/2018 1:45 PM)Only the most recent of29 resultswithin the time period is included. Component Value Ref Range WBC 3.9 3.5 - 10.5 K/L RBC 2.69 (L) 4.63 - 6.08 M/L Hemoglobin 9.1 (L) 13.7 - 17.5 GM/DL Hematocrit 27.3 (L) 40.1 - 51.0 % MCV 101.5 (H) 79.0 - 92.2 fL MCH 33.8 (H) 25.7 - 32.2 pg MCHC 33.3 32.3 - 36.5 GM/DL RDW 18.6 (H) 11.6 - 14.4 % Platelets 71 (L) 150 - 450 K/CU MM MPV 9.6 9.4 - 12.4 fL nRBC 0 0 - 0 /100 WBC % Neutros 62 % % Lymphs 16 % % Monos 17 % % Eos 5 % % Baso 0 % # Neutros 2.41 1.78 - 5.38 K/L # Lymphs 0.62 (L) 1.32 - 3.57 K/L # Monos 0.65 0.30 - 0.82 K/L # Eos 0.20 0.04 - 0.54 K/L # Baso 0.01 0.01 - 0.08 K/L Immature Granulocytes-Relative 0 0 - 1 % Specimen Performing Laboratory Blood [address] [address] Alpha fetoprotein (AFP), tumor marker (06/02/2018 1:45 PM)Only the most recent of2 resultswithin the time period is included. Component Value Ref Range Alpha-Fetoprotein 2.2 <10.0 ng/mL Specimen Performing Laboratory Blood [address] [address] Prothrombin time/INR (06/02/2018 1:45 PM)Only the most recent of25 resultswithin the time period is included. Component Value Ref Range Protime 19.5 (H) 11.7 - 14.7 seconds INR 1.7 <=5.9 Specimen Performing Laboratory Blood [address] [address] Narrative RECOMMENDED COUMADIN/WARFARIN INR THERAPY RANGES STANDARD DOSE: 2.0 - 3.0 Includes: PROPHYLAXIS for venous thrombosis, systemic embolization; TREATMENT for venous thrombosis and/or pulmonary embolus. HIGH RISK: Target INR is 2.5-3.5 for patients with mechanical heart valves. CBC with platelet count + automated diff (06/02/2018 1:45 PM)Only the most recent of29 resultswithin the time period is included. Specimen Performing Laboratory Blood [facility] ([facility]) Narrative The following orders were created for panel order CBC with platelet count + automated diff. Procedure Abnormality Status --------- ------ CBC with platelet count ...[[id number]]AbnormalFinal result Please view results for these tests on the individual orders. Bilirubin, direct (06/02/2018 1:45 PM)Only the most recent of4 resultswithin the time period is included. Component Value Ref Range Bilirubin, Direct 2.1 (H) 0.1 - 0.5 mg/dL Specimen Performing Laboratory Blood [address] [address] Comprehensive metabolic panel (06/02/2018 1:45 PM)Only the most recent of18 resultswithin the time period is included. Component Value Ref Range Protein, Total 6.5 6.0 - 8.3 gm/dL Albumin 3.6 3.5 - 5.0 g/dL Alkaline Phosphatase 342 (H) 40 - 150 U/L Total Bilirubin 4.2 (H) 0.2 - 1.2 mg/dL Sodium 128 (L) 136 - 145 meq/L Potassium 4.6 3.5 - 5.1 meq/L Chloride 100 98 - 107 meq/L CO2 21 (L) 22 - 29 meq/L BUN 21 7 - 21 mg/dL Creatinine 1.37 (H) 0.57 - 1.25 mg/dL Glucose 108 (H) 70 - 105 mg/dL Calcium 9.5 8.4 - 10.2 mg/dL AST 25 5 - 34 U/L ALT 10 6 - 55 U/L EGFR 54Comment: ESTIMATED GFR IS NOT ACCURATE mL/min/1.73 sq m CREATININE CLEARANCE IN PREDICTING GLOMERULAR FILTRATION RATE. ESTIMATED GFR IS NOT APPLICABLE FOR DIALYSIS PATIENTS. Specimen Performing Laboratory Blood [address] [address] Narrative Specimen slightly icteric Electrolytes (05/15/2018 4:56 PM)Only the most recent of5 resultswithin the time period is included. Component Value Ref Range Sodium 133 (L) 136 - 145 meq/L Potassium 3.2 (L) 3.5 - 5.1 meq/L Chloride 102 98 - 107 meq/L CO2 21 (L) 22 - 29 meq/L Specimen Performing Laboratory Blood - Arm, Right [address] [address] Calcium, Ionized (05/15/2018 3:21 AM)Only the most recent of11 resultswithin the time period is included. Component Value Ref Range Calcium, Ion 1.09 (L) 1.12 - 1.27 mmol/L pH, Blood 7.35 Specimen Performing Laboratory Blood - Arm, Left [address] [address] Phosphorus (05/15/2018 3:21 AM)Only the most recent of12 resultswithin the time period is included. Component Value Ref Range Phosphorus 2.4 2.3 - 4.7 mg/dL Specimen Performing Laboratory Blood - Arm, [address] [address] Magnesium (05/15/2018 3:21 AM)Only the most recent of14 resultswithin the time period is included. Component Value Ref Range Magnesium 2.0 1.6 - 2.6 mg/dL Specimen Performing Laboratory Blood - Arm, [address] [address] Hepatic function panel (05/15/2018 3:21 AM)Only the most recent of15 resultswithin the time period is included. Component Value Ref Range Protein, Total 5.8 (L) 6.0 - 8.3 gm/dL Albumin 4.1 3.5 - 5.0 g/dL Total Bilirubin 3.9 (H) 0.2 - 1.2 mg/dL Bilirubin, Direct 2.0 (H) 0.1 - 0.5 mg/dL Alkaline Phosphatase 123 40 - 150 U/L AST 14 5 - 34 U/L ALT <6 (L) 6 - 55 U/L Specimen Performing Laboratory Blood - Arm, [address] [address] Narrative Specimen slightly icteric Lactic acid, venous, whole blood (05/14/2018 12:52 PM)Only the most recent of2 resultswithin the time period is included. Component Value Ref Range Lactate, Venous 1.6Comment: Specimen slightly hemolyzed 0.5 - 2.2 mmol/L Specimen Performing Laboratory Blood [address] [address] Narrative Effective 02/28/2016: Units/Reference Range Change New: 0.5-2.2 mmol/LPrevious: 5-20 mg/dL Specimen slightly icteric Body fluid culture + gram stain (05/13/2018 3:06 PM)Only the most recent of5 resultswithin the time period is included. Component Value Ref Range Result No growth Gram Stain Result No WBCs Gram Stain Result No organisms seen Specimen Performing Laboratory Body Fluid - Ascites [address] [address] Body fluid cell count with differential (05/13/2018 3:06 PM)Only the most recent of6 resultswithin the time period is included. Component Value Ref Range Appearance Hazy (A) Clear Color Yellow (A) Colorless, Straw RBCs 2000 (H) <=1 /cu mm Adjusted WBC Count 96 (H) <=5 /cu mm Lining Cells 2 (H) <=1 /cu mm % Segs 4 % % Lymphs 11 % % Monos 85 % % Eos 0 % % Baso 0 % Container Body Fluid EDTA Tube Specimen Performing Laboratory [place] [address] US paracentesis (05/13/2018 12:36 PM)Only the most recent of7 resultswithin the time period is included. Specimen Performing Laboratory [facility] Narrative FINAL REPORT Indication: Ascites. Technique: Ultrasound guided paracentesis. Findings: Preliminary ultrasound confirms ascites. A safe window was identified in the midline (suprapubic). The procedure was explained to the patient and informed consent was signed. The skin was marked and prepped in standard sterile fashion. 2% lidocaine was used for local anesthesia. A 5 Cameroonian needle catheter system was advanced into the peritoneal space. 3300 cc clear yellow fluid was taken off. Sample of the fluid was sent to the laboratory. Patient tolerated the procedure well. Impression: Ultrasound guided paracentesis. Signed: Jono Way MD Report Verified Date/Time:05/13/2018 12:49:12 Reading Location: [address] Ultrasound Reading Room Procedure Note Interface, External Ris In - 05/13/2018 12:51 PM CDT FINAL REPORT Indication: Ascites. Technique: Ultrasound guided paracentesis. Findings: Preliminary ultrasound confirms ascites. A safe window was identified in the midline (suprapubic). The procedure was explained to the patient and informed consent was signed. The skin was marked and prepped in standard sterile fashion. 2% lidocaine was used for local anesthesia. A 5 Cameroonian needle catheter system was advanced into the peritoneal space. 3300 cc clear yellow fluid was taken off. Sample of the fluid was sent to the laboratory. Patient tolerated the procedure well. Impression: Ultrasound guided paracentesis. Signed: Jono Way MD Report Verified Date/Time: 05/13/2018 12:49:12 Reading Location: [facility] B1 [id number] Ultrasound Reading Room B-type Natriuretic Factor (BNP) (05/13/2018 3:55 AM) Component Value Ref Range BNP 274 (H) 0 - 100 pg/mL Specimen Performing Laboratory Blood - Arm, [place] [address] TRANSFUSION SERVICE REPORT - SCAN (05/12/2018 5:53 PM)Only the most recent of12 resultswithin the time period is included.XR chest 1 view portable / bedside (05/12/2018 1:18 PM) Specimen Performing Laboratory [facility] Narrative FINAL REPORT Chest one view compared to December 30 Discussion: Ill-defined bilateral airspace opacities are worse since the previous study although this may reflect a lesser inspiratory effort. No gross effusion or pneumothorax. Signed: Karina Pugh MD Report Verified Date/Time:05/12/2018 13:56:44 Reading Location: [facility] B1 [id number] Consult Reading Room Procedure Note Interface, External Ris In - 05/12/2018 1:59 PM CDT FINAL REPORT Chest one view compared to December 30 Discussion: Ill-defined bilateral airspace opacities are worse since the previous study although this may reflect a lesser inspiratory effort. No gross effusion or pneumothorax. Signed: Karina Pugh MD Report Verified Date/Time: 05/12/2018 13:56:44 Reading Location: [facility] B1 [id number] Consult Reading Room Prepare Leuko-Red RBC (05/11/2018 11:54 PM)Only the most recent of5 resultswithin the time period is included. Component Value Ref Range CROSSMATCH COMPATIBLE Unit ABO A Pos UNIT NUMBER [id number] Status TRANSFUSED Blood Bank Product RED BLOOD CELLS PRODUCT CODE [id number] Specimen Performing Laboratory Other [employer] Sodium, random urine (05/11/2018 4:08 PM)Only the most recent of3 resultswithin the time period is included. Component Value Ref Range Sodium Urine <20 meq/L Specimen Performing Laboratory Urine [address] [address] Narrative Reference Range: No Normals Protein, random urine (05/11/2018 4:08 PM)Only the most recent of3 resultswithin the time period is included. Component Value Ref Range Protein, Urine 7 0 - 14 mg/dL Specimen Performing Laboratory Urine [address] [address] Osmolality, urine (05/11/2018 4:08 PM)Only the most recent of2 resultswithin the time period is included. Component Value Ref Range Osmolality, Ur 312 40 - 1400 mOsm/kg Specimen Performing Laboratory Urine [address] [address] Creatinine, random urine (05/11/2018 4:08 PM)Only the most recent of3 resultswithin the time period is included. Component Value Ref Range Creatinine, Ur 116.1 mg/dL Specimen Performing Laboratory Urine [address] [address] Narrative Reference Range: No Normals Urinalysis w/Microscopic (05/11/2018 4:08 PM)Only the most recent of3 resultswithin the time period is included. Component Value Ref Range Color, UA Yellow Clarity, UA Clear Specific [place], UA 1.012 1.001 - 1.035 pH, UA 5.5 5.0 - 8.0 Protein, UA Negative Negative Glucose, UA Negative Negative Ketones, UA Negative Negative Bilirubin, UA Negative Negative Blood, UA Negative Negative Nitrite, UA Negative Negative Leukocytes, UA Negative Negative Urobilinogen, UA 2.0 (H) 0.2 - 1.0 mg/dL RBC, UA 0 /HPF WBC, UA 1 /HPF Mucus Rare Hyaline Casts, UA 15 /LPF Specimen Source Specimen Performing Laboratory Urine [address] [address] XR spine lumbar 2 or 3 views (05/11/2018 11:49 AM) Specimen Performing Laboratory [facility] Narrative FINAL REPORT INDICATION: Mid back and low back pain. Recent kyphoplasty. COMPARISON: MR lumbar spine May 07, 2018 TECHNIQUE: Thoracic spine radiograph two views. Lumbar spine radiograph three views. FINDINGS / IMPRESSION: There is interval kyphoplasty with cement in the L2, T12, and T11 vertebral bodies. No new compression fracture is demonstrated. Normal thoracic kyphosis and lumbar lordosis is maintained. There is no spondylolisthesis. Diffuse osteopenia noted. Intervertebral disc space is relatively maintained. Signed: Jono Way MD Report Verified Date/Time:05/11/2018 13:53:06 Reading Location: [facility] Mammo Reading Room Procedure Note Interface, External Ris In - 05/11/2018 1:55 PM CDT FINAL REPORT INDICATION: Mid back and low back pain. Recent kyphoplasty. COMPARISON: MR lumbar spine May 07, 2018 TECHNIQUE: Thoracic spine radiograph two views. Lumbar spine radiograph three views. FINDINGS / IMPRESSION: There is interval kyphoplasty with cement in the L2, T12, and T11 vertebral bodies. No new compression fracture is demonstrated. Normal thoracic kyphosis and lumbar lordosis is maintained. There is no spondylolisthesis. Diffuse osteopenia noted. Intervertebral disc space is relatively maintained. Signed: Jono Way MD Report Verified Date/Time: 05/11/2018 13:53:06 Reading Location: [facility] Mammo Reading Room spine thoracic 2 views (05/11/2018 11:49 AM) Specimen Performing Laboratory [facility] Narrative FINAL REPORT INDICATION: Mid back and low back pain. Recent kyphoplasty. COMPARISON: MR lumbar spine May 07, 2018 TECHNIQUE: Thoracic spine radiograph two views. Lumbar spine radiograph three views. FINDINGS / IMPRESSION: There is interval kyphoplasty with cement in the L2, T12, and T11 vertebral bodies. No new compression fracture is demonstrated. Normal thoracic kyphosis and lumbar lordosis is maintained. There is no spondylolisthesis. Diffuse osteopenia noted. Intervertebral disc space is relatively maintained. Signed: Jono Way MD Report Verified Date/Time:05/11/2018 13:53:06 Reading Location: [facility] Mammo Reading Room Procedure Note Interface, External Ris In - 05/11/2018 1:55 PM CDT FINAL REPORT INDICATION: Mid back and low back pain. Recent kyphoplasty. COMPARISON: MR lumbar spine May 07, 2018 TECHNIQUE: Thoracic spine radiograph two views. Lumbar spine radiograph three views. FINDINGS / IMPRESSION: There is interval kyphoplasty with cement in the L2, T12, and T11 vertebral bodies. No new compression fracture is demonstrated. Normal thoracic kyphosis and lumbar lordosis is maintained. There is no spondylolisthesis. Diffuse osteopenia noted. Intervertebral disc space is relatively maintained. Signed: Jono Way MD Report Verified Date/Time: 05/11/2018 13:53:06 Reading Location: [facility] Reading Room Transfuse Leuko-Red RBC (05/10/2018 4:51 PM)Only the most recent of10 resultswithin the time period is included.Basic Metabolic Panel (05/10/2018 3: 41 PM)Only the most recent of12 resultswithin the time period is included. Component Value Ref Range Sodium 124 (L) 136 - 145 meq/L Potassium 3.8 3.5 - 5.1 meq/L Chloride 91 (L) 98 - 107 meq/L CO2 22 22 - 29 meq/L BUN 19 7 - 21 mg/dL Creatinine 1.49 (H) 0.57 - 1.25 mg/dL Glucose 105 70 - 105 mg/dL Calcium 9.3 8.4 - 10.2 mg/dL EGFR 50Comment: ESTIMATED GFR IS NOT ACCURATE mL/min/1.73 sq m CREATININE CLEARANCE IN PREDICTING GLOMERULAR FILTRATION RATE. ESTIMATED GFR IS NOT APPLICABLE FOR DIALYSIS PATIENTS. Specimen Performing Laboratory Blood - Arm, [place] [address] Narrative Call [phone] Specimen slightly icteric Type and screen, automated (05/10/2018 10:44 AM)Only the most recent of5 resultswithin the time period is included. Component Value Ref Range ABO/RH AUTOMATED (BEAKER) A POSITIVE Ab Scrn NEGATIVE Specimen Performing Laboratory Blood [place] [id number] Prepare Leuko-Red PLT (05/09/2018 11:54 PM) Component Value Ref Range Unit ABO O Pos UNIT NUMBER [id number] Status TRANSFUSED Blood Bank Product PLATELETS PRODUCT CODE [id number] Specimen Performing Laboratory Blood [employer] Prepare plasma (05/09/2018 11:54 PM)Only the most recent of2 resultswithin the time period is included. Component Value Ref Range Unit ABO A Pos UNIT NUMBER [id number] Status TRANSFUSED Blood Bank Product FFP PRODUCT CODE [id number] Unit ABO A Pos UNIT NUMBER [id number] Status TRANSFUSED Blood Bank Product FFP PRODUCT CODE [id number] Unit ABO A Pos UNIT NUMBER [id number] Status TRANSFUSED Blood Bank Product FFP PRODUCT CODE [id number] Specimen Performing Laboratory Blood [employer] [place] Vertebroplasty/Kyphoplasty (05/08/2018 10:10 PM) Specimen Performing Laboratory [facility] Narrative Addendum Begins REPORT STATUS:A Addendum: June 04, 2018 1720 hours It should be noted that the number images saved to PACS procedure are extremely limited due to equipment malfunction and image archiving problems. Because of these issues, two views of the thoracic and lumbar spine were obtained following the procedure Signed: Karina Alva MD Report Verified Date/Time:06/04/2018 17:23:27 Reading Location: [address] Radiology Reading Room Addendum Ends FINAL REPORT HISTORY: T11, T12 and L2 wedge vertebral compression fracture and severe lower back pain despite conservative therapy. PROCEDURE: Following informed written consent, general endotracheal anesthesia was performed by the anesthesiology service and the patient was placed in a prone position on the angiographic table. The lower back was prepped and draped in the usual sterile manner. Using a bilateral posterior transpedicular approach and fluoroscopic guidance, a single access needle was placed through the right pedicle at L3 and into the posterior aspect of the vertebral body in the sclerotic lesion identified by recent CT scan. Core bone biopsy was obtained from this area and submitted to pathology formalin for evaluation. Bilateral access needles were then placed into the T11, T12 and L2 vertebral bodies again using fluoroscopic guidance and a posterior transpedicular approach. Tracts were drilled through each cannula into the T11, T12 and L2 vertebral bodies. Vertebral augmentation balloons were placed through the access cannulas and inflated bilaterally. The balloons were deflated, removed and a total of 14 cc of methyl methacrylate was infused into the T11, T12 and L2 vertebral bodies under constant fluoroscopic visualization. The cannulas were then removed and the access sites closed with Steri-Strips. Sterile bandages were applied and the patient was transferred from the department in stable condition. There were no immediate complications. FINDINGS: Images obtained during the procedure show the access needles, cannulas and balloons in expected positions within the T11, T12 and L2 vertebral body. Following methacrylate infusion, adequate distribution is seen within the T11, T12 and L2 vertebral body without extravasation. IMPRESSION: 1. Technically successful T11, T12 and L2 percutaneous vertebral augmentation. No immediate complications. Two. Successful uncomplicated fluoroscopically guided core biopsy of the posterior right aspect of the L3 vertebral body. Total fluoroscopy time: 17 mins Estimated dose reported as (Ka,r): 1550 mGy Signed: Karina Alva MD Report Verified Date/Time:06/03/2018 17:56:43 Reading Location: [place] [address] Angio Body Reading Room Procedure Note Interface, External Ris In - 06/04/2018 5:25 PM CDT Addendum Begins REPORT STATUS:A Addendum: June 04, 2018 1720 hours It should be noted that the number images saved to PACS procedure are extremely limited due to equipment malfunction and image archiving problems. Because of these issues, two views of the thoracic and lumbar spine were obtained following the procedure Signed: Karina Alva MD Report Verified Date/Time: 06/04/2018 17:23:27 Reading Location: [address] Radiology Reading Room Addendum Ends FINAL REPORT HISTORY: T11, T12 and L2 wedge vertebral compression fracture and severe lower back pain despite conservative therapy. PROCEDURE: Following informed written consent, general endotracheal anesthesia was performed by the anesthesiology service and the patient was placed in a prone position on the angiographic table. The lower back was prepped and draped in the usual sterile manner. Using a bilateral posterior transpedicular approach and fluoroscopic guidance, a single access needle was placed through the right pedicle at L3 and into the posterior aspect of the vertebral body in the sclerotic lesion identified by recent CT scan. Core bone biopsy was obtained from this area and submitted to pathology formalin for evaluation. Bilateral access needles were then placed into the T11, T12 and L2 vertebral bodies again using fluoroscopic guidance and a posterior transpedicular approach. Tracts were drilled through each cannula into the T11, T12 and L2 vertebral bodies. Vertebral augmentation balloons were placed through the access cannulas and inflated bilaterally. The balloons were deflated, removed and a total of 14 cc of methyl methacrylate was infused into the T11, T12 and L2 vertebral bodies under constant fluoroscopic visualization. The cannulas were then removed and the access sites closed with Steri-Strips. Sterile bandages were applied and the patient was transferred from the department in stable condition. There were no immediate complications. FINDINGS: Images obtained during the procedure show the access needles, cannulas and balloons in expected positions within the T11, T12 and L2 vertebral body. Following methacrylate infusion, adequate distribution is seen within the T11, T12 and L2 vertebral body without extravasation. IMPRESSION: 1. Technically successful T11, T12 and L2 percutaneous vertebral augmentation. No immediate complications. Two. Successful uncomplicated fluoroscopically guided core biopsy of the posterior right aspect of the L3 vertebral body. Total fluoroscopy time: 17 mins Estimated dose reported as (Ka,r): 1550 mGy Signed: Karina Alva MD Report Verified Date/Time: 06/03/2018 17:56:43 Reading Location: [place] [address] Angio Body Reading Room Tissue Exam (05/08/2018 8:00 PM) Component Value Ref Range Case Report Surgical Pathology Report Case: [id number] Authorizing Provider:Karina Alva MDCollected: 05/08/20181999 Ordering Location: [address] Received: 05/11/2018 0837 Service Pathologist: Jesús Craig MD Specimen:Bone DIAGNOSIS L3 VERTEBRAL BODY BONE BIOPSY: BONE AND BONE MARROW, NEGATIVE FOR MALIGNANCY. SEE DIAGNOSTIC COMMENT. Signing Pathologist Direct Phone Line: [phone] COMMENT Histological sections demonstrate portions of bone and bone marrow without evidence of a malignant process. Immunohistochemical studies performed on block A1 demonstrate polytypic plasma cells by kappa and lambda immunostains. Blasts are not increased by CD34. Immunostain for keratin is negative. There is no morphologic evidence of a malignant process in the sampled material. If there is a strong clinical concern for a malignant process, a repeat tissue based study may be warranted as the sample d material may not be fully solar sales representative and assessor. This case was discussed with Dr. Andrea Franklin, cobbler apprentice. CPT Code(s) 99362, 40126, 35526, 17956s4 CLINICAL HISTORY Compression fracture of body thoracic vertebral SPECIMEN SOURCE L3 vertebral body biopsy GROSS DESCRIPTION Received in formalin labeled "L3 vertebral body" is a 0.3 cm in length hong-white core of osseous tissue. The specimen is entirely submitted in cassette A1 for decalcification. DB/pl MICROSCOPIC DESCRIPTION Performed. SPECIAL STUDIES The following special studies were performed on this case and the interpretation is incorporated in the diagnostic report above: BLOCK A1- CD34, KAPPA, LAMBDA, KERATIN The immunohistochemistry test was developed and its performance characteristics determined by [facility], Pathology Laboratory. It has not been cleared or approved by the U.S. Food and Drug Administration. The FDA has determined that such clearance or approval is not necessary. The test is used for clinical purposes. It should not be regarded as investigational or for research. This laboratory is certified under the Clinical Laboratory Improvement Amendments of 1988 (CLIA-88) as qualified to perform high complexity clinical laboratory testing. Specimen Performing Laboratory Tissue - Bone [address] [address] Transfuse plasma (05/08/2018 5:51 PM)Only the most recent of5 resultswithin the time period is included.PT/aPTT (05/08/2018 2:57 PM)Only the most recent of4 resultswithin the time period is included. Component Value Ref Range Protime 20.3 (H) 11.7 - 14.7 seconds INR 1.7 <=5.9 PTT 46.2 (H) 22.5 - 36.0 seconds Specimen Performing Laboratory Blood [address] [address] Narrative RECOMMENDED COUMADIN/WARFARIN INR THERAPY RANGES STANDARD DOSE: 2.0 - 3.0 Includes: PROPHYLAXIS for venous thrombosis, systemic embolization; TREATMENT for venous thrombosis and/or pulmonary embolus. HIGH RISK: Target INR is 2.5-3.5 for patients with mechanical heart valves. 30 minutes after administration of Kcentra 30 minutes after administration of Kcentra Transfuse Leuko-Red PLT (05/08/2018 10:03 AM)Only the most recent of2 resultswithin the time period is included.aPTT (05/08/2018 5:57 AM) Component Value Ref Range PTT 47.9 (H) 22.5 - 36.0 seconds Specimen Performing Laboratory Blood - Arm, Left [address] [address] [address] abdomen/pelvis without iv contrast (05/08/2018 3:11 AM)Only the most recent of2 resultswithin the time period is included. Specimen Performing Laboratory [facility] Narrative FINAL REPORT HISTORY : r/o intra abdominal bleed Technique: Multiple axial images of the abdomen and pelvis were performed without the administration of IV or oral contrast. This exam was performed according to our departmental dose optimization program which includes automated exposure control, adjustment of the mA and/or kV according to patient size and/or use of iterative reconstructive technique. COMPARISON :12/28/2017 COMMENT : The lung bases are clear. The visualized adrenal glands, pancreas, stomach and duodenum are within normal limits. There is medullary nephrocalcinosis. There is splenomegaly. There is hepatic cirrhosis. There is cholelithiasis. There is no abdominal, retroperitoneal or pelvic lymphadenopathy. There is a sclerotic focus in the left acetabulum measuring 0.5 cm. There is gynecomastia. There is a midline ventral hernia in the lower pelvis containing fat and fluid. There are new age indeterminate compression deformities/fractures of the T11 and L2 vertebral bodies. No free air is identified in the abdomen or pelvis. There is a moderate-large amount of abdominal ascites/free fluid. There is colonic diverticulosis. There are no CT findings to suggest diverticulitis, however. There are some nonspecific mildly prominent loops of small bowel particularly in the anterior abdomen or likely due to an ileus. No obvious transition point is seen. A degree of small bowel obstruction cannot be entirely excluded, however. The appendix is visualized and is within normal limits. The prostate gland and seminal vesicles are within normal limits. Impression: 1. No intraabdominal/retroperitoneal hematoma. 2. Hepatic cirrhosis, splenomegaly and findings of portal hypertension. 3. Moderate-large amount of abdominal ascites/free fluid. 4. Midline ventral hernia containing fat as well as fluid. No bowel contents are seen within the hernia. 5. New age indeterminate compression deformities/fractures of the T11 and L2 vertebral bodies. Signed: Sol Del Rosario MD Report Verified Date/Time:05/08/2018 10:30:57 Reading Location: [facility] Diagnostic Imaging Reading Room - [place] [address] Procedure Note Interface, External Ris In - 05/08/2018 10:33 AM CDT FINAL REPORT HISTORY : r/o intra abdominal bleed Technique: Multiple axial images of the abdomen and pelvis were performed without the administration of IV or oral contrast. This exam was performed according to our departmental dose optimization program which includes automated exposure control, adjustment of the mA and/or kV according to patient size and/or use of iterative reconstructive technique. COMPARISON : 12/28/2017 COMMENT : The lung bases are clear. The visualized adrenal glands, pancreas, stomach and duodenum are within normal limits. There is medullary nephrocalcinosis. There is splenomegaly. There is hepatic cirrhosis. There is cholelithiasis. There is no abdominal, retroperitoneal or pelvic lymphadenopathy. There is a sclerotic focus in the left acetabulum measuring 0.5 cm. There is gynecomastia. There is a midline ventral hernia in the lower pelvis containing fat and fluid. There are new age indeterminate compression deformities/fractures of the T11 and L2 vertebral bodies. No free air is identified in the abdomen or pelvis. There is a moderate-large amount of abdominal ascites/free fluid. There is colonic diverticulosis. There are no CT findings to suggest diverticulitis, however. There are some nonspecific mildly prominent loops of small bowel particularly in the anterior abdomen or likely due to an ileus. No obvious transition point is seen. A degree of small bowel obstruction cannot be entirely excluded, however. The appendix is visualized and is within normal limits. The prostate gland and seminal vesicles are within normal limits. Impression: 1. No intraabdominal/retroperitoneal hematoma. 2. Hepatic cirrhosis, splenomegaly and findings of portal hypertension. 3. Moderate-large amount of abdominal ascites/free fluid. 4. Midline ventral hernia containing fat as well as fluid. No bowel contents are seen within the hernia. 5. New age indeterminate compression deformities/fractures of the T11 and L2 vertebral bodies. Signed: Sol Del Rosario MD Report Verified Date/Time: 05/08/2018 10:30:57 Reading Location: [facility] Diagnostic Imaging Reading Room - [place] [address] spine lumbar without IV contrast (05/07/2018 4:50 PM) Specimen Performing Laboratory [facility] Narrative FINAL REPORT MRI lumbar spine without contrast 05/07/2018 at 1632. CLINICAL HISTORY: Low back pain. TECHNIQUE: MRI of the lumbar spine was performed, utilizing the following sequences: Sagittal T1, T2, STIR; axial T1 and T2. COMPARISON: None available. FINDINGS: There are recent superior T11, T12, and L2 compression fractures resulting in up to 30% loss of height in the T11 vertebral body. There is mild osseous retropulsion of the posterior cortex of T12, without mass effect on the distal spinal cord. There is no remarkable osseous retropulsion involving the T11 or L2 vertebral bodies. The remaining vertebral bodies are osteopenic, but intact. There is a nonexpansile 19 mm lesion in the L3 vertebral body, potentially reflecting metastasis. The conus medullaris terminates at L1. The distal spinal cord and terminal nerve roots are unremarkable. 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 Superimposed degenerative changes resulting in varying degrees of foraminal stenosis, without high-grade central canal stenosis. There is large volume ascites. There is cirrhosis with evidence for portal hypertension. IMPRESSION: 1. Recent mild T11, T12, and L2 compression fractures without spinal canal compromise. 2. Potential L3 vertebral body metastasis. 3. Cirrhosis with portal hypertension and large volume ascites. Signed: Tashia Bain MD Report Verified Date/Time:05/07/2018 16:57:00 Reading Location: [facility] [address] Radiology Reading Room Procedure Note Interface, External Ris In - 05/07/2018 4:59 PM CDT FINAL REPORT MRI lumbar spine without contrast 05/07/2018 at 1632. CLINICAL HISTORY: Low back pain. TECHNIQUE: MRI of the lumbar spine was performed, utilizing the following sequences: Sagittal T1, T2, STIR; axial T1 and T2. COMPARISON: None available. FINDINGS: There are recent superior T11, T12, and L2 compression fractures resulting in up to 30% loss of height in the T11 vertebral body. There is mild osseous retropulsion of the posterior cortex of T12, without mass effect on the distal spinal cord. There is no remarkable osseous retropulsion involving the T11 or L2 vertebral bodies. The remaining vertebral bodies are osteopenic, but intact. There is a nonexpansile 19 mm lesion in the L3 vertebral body, potentially reflecting metastasis. The conus medullaris terminates at L1. The distal spinal cord and terminal nerve roots are unremarkable. 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 Superimposed degenerative changes resulting in varying degrees of foraminal stenosis, without high-grade central canal stenosis. There is large volume ascites. There is cirrhosis with evidence for portal hypertension. IMPRESSION: 1. Recent mild T11, T12, and L2 compression fractures without spinal canal compromise. 2. Potential L3 vertebral body metastasis. 3. Cirrhosis with portal hypertension and large volume ascites. Signed: Tashia Bain MD Report Verified Date/Time: 05/07/2018 16:57:00 Reading Location: [facility] [address] Radiology Reading Room 12 lead (05/07/2018 3:00 PM)Only the most recent of3 resultswithin the time period is included. Specimen Performing Laboratory [employer] MUSE Narrative Ventricular Rate 61 BPM Atrial Rate 61 BPM P-R Interval 158 ms QRS Duration 92 ms Q-T Interval 450 ms QTC Calculation(Bazett) 453 ms P Judsonia 42 degrees R Judsonia -3 degrees T Judsonia 20 degrees Normal sinus rhythm Normal ECG When compared with ECG of 23-FEB-2018 08:36, No significant change was found Confirmed by Beulah WILEY, ARGENIS ([id number]) on 05/08/2018 7:20:48 AM Procedure Note Interface, External Ris In - 05/08/2018 7:20 AM CDT Ventricular Rate 61 BPM Atrial Rate 61 BPM P-R Interval 158 ms QRS Duration 92 ms Q-T Interval 450 ms QTC Calculation(Bazett) 453 ms P Judsonia 42 degrees R Judsonia -3 degrees T Judsonia 20 degrees Normal sinus rhythm Normal ECG When compared with ECG of 23-FEB-2018 08:36, No significant change was found Confirmed by Beulah WILEY MICHAEL ([id number]) on 05/08/2018 7:20:48 AM Hemoglobin and hematocrit (05/07/2018 1:37 PM)Only the most recent of4 resultswithin the time period is included. Component Value Ref Range Hemoglobin 7.1 (L) 13.7 - 17.5 GM/DL Hematocrit 21.7 (L) 40.1 - 51.0 % Specimen Performing Laboratory Blood [facility] [address] renal complete (05/07/2018 9:34 AM) Specimen Performing Laboratory GE RIS Narrative FINAL REPORT Renal ultrasound Clinical History:Acute kidney injury Discussion: Sonographic evaluation of the kidneys is performed. The right kidney is normal in size measuring 11.4 x 5.2 x 7.2 cm with cortical thickness of 1.7 cm. Cortical echogenicity is within normal limits. The main renal artery and vein are patent. There is no evidence for solid renal mass, hydronephrosis, or shadowing calculi. The left kidney is normal in size measuring 10.7 x 5.4 x 5.3 cm with cortical thickness is 2.1 cm. Cortical echogenicity is within normal limits. The main renal artery and vein are patent. There is no evidence for solid renal mass, hydronephrosis, or shadowing calculi. The urinary bladder appears grossly unremarkable. Incidentally noted is a moderate volume of the ascites. The spleen appears mildly enlarged. Impression: Unremarkable sonographic appearance of the kidneys. Ascites. Signed: Reece Haque MD Report Verified Date/Time:05/07/2018 09:48:55 Reading Location: [address] Ultrasound Reading Room Procedure Note Interface, External Ris In - 05/07/2018 4:37 PM CDT FINAL REPORT Renal ultrasound Clinical History: Acute kidney injury Discussion: Sonographic evaluation of the kidneys is performed. The right kidney is normal in size measuring 11.4 x 5.2 x 7.2 cm with cortical thickness of 1.7 cm. Cortical echogenicity is within normal limits. The main renal artery and vein are patent. There is no evidence for solid renal mass, hydronephrosis, or shadowing calculi. The left kidney is normal in size measuring 10.7 x 5.4 x 5.3 cm with cortical thickness is 2.1 cm. Cortical echogenicity is within normal limits. The main renal artery and vein are patent. There is no evidence for solid renal mass, hydronephrosis, or shadowing calculi. The urinary bladder appears grossly unremarkable. Incidentally noted is a moderate volume of the ascites. The spleen appears mildly enlarged. Impression: Unremarkable sonographic appearance of the kidneys. Ascites. Signed: Reece Haque MD Report Verified Date/Time: 05/07/2018 09:48:55 Reading Location: [address] Ultrasound Reading Room Blood culture (05/06/2018 7:25 PM)Only the most recent of4 resultswithin the time period is included. Component Value Ref Range Result No growth in 5 days Specimen Performing Laboratory Blood - Arm, Left [address] [address] ethyl glucuronide (05/05/2018 6:51 PM) Component Value Ref Range Scan Result Specimen Performing Laboratory Urine - Urine, Clean Catch [facility] [address] [place] [address] Eosinophil smear (05/05/2018 6:51 PM) Component Value Ref Range Eosinophil Smear No EOS seen No EOS seen Specimen Performing Laboratory Urine - Urine, Clean Catch [address] [address] Zinc (05/05/2018 3:51 PM)Only the most recent of2 resultswithin the time period is included. Component Value Ref Range Zinc 28 (L) 60 - 130 mcg/dL Comment: This test was developed and its analytical performance characteristics have been determined by [employer] [facility]. It has not been cleared or approved by the US Food and Drug Administration. This assay has been validated pursuant to the CLIA regulations and is used for clinical purposes. ZINC Confirmed by repeat analysis. Specimen Performing Laboratory Blood - Arm, Left [employer] [facility] [address] [address] Narrative Performing Lab *SPL [facility], [address] [place] [phone] Clau Avila MD, PhD Prealbumin (05/05/2018 3:51 PM) Component Value Ref Range Prealbumin 5 (L) 14 - 45 mg/dL Specimen Performing Laboratory Blood - Arm, Left [address] [address] Narrative Listed for OLT - Nutrition Surveillance ([facility] Hepatology Transplant Team) POC-Creatinine (04/28/2018 1:54 PM) Component Value Ref Range POC-Creatinine 2.0 (H)Comment: TESTED AT [address] 0.6 - 1.3 mg/[place] [address] POC-EGFR 35 mL/min/1.73M2 Specimen Performing Laboratory Blood [address] [address] VASCULAR DIAGRAM -SCAN (04/23/2018 11:40 AM)Only the [...] None Serum blood glucose: 119 CPT Code: 86248 FINDINGS: Head and Neck: There is no [...] None Serum blood glucose: 119 CPT Code: 48851 FINDINGS: Head and Neck: There is no [...] Range POC-Glucose Meter 119 (H)Comment: TESTED AT [address] 70 - 110 mg/[place] [address] Specimen Performing Laboratory Blood [facility] [address] [address] REPORT OF PROCEDURE - ENDOSCOPY URL (03/25/2018 2:49 PM)Only the most recent of3 resultswithin the time period is included.PULMONARY FUNCTION - SCAN (2017 10:13 AM)Pulmonary Funct Lab Spirometry (03/03/2018 2:56 PM) Narrative Candido Alejandra, GRANITE WORKER, NUTRITION REPRESENTATIVE 03/03/20182:56 PM [facility] PFT CHARTING REPORT Infection Control/Hand Hygiene procedures followed throughout the encounter with patient: Yes Patient Identification Method: Patient name verified on armband, and Medical record on armband, Is the order complete?: Yes Account ID#: [id number] Patient Name: Abhishek Arrieta Birthdate: 1965 Age: [...] included. Specimen Performing Laboratory Urine [facility] [address] [place] [address] CARDIAC CATH REPORT - SCAN (02/24/2018 8:50 PM)CBC (Hemogram only) (02/23/2018 8:00 AM)Only the most [...] 0 /100 WBC Specimen Performing Laboratory Blood [facility] [address] [address] EKG-SCANNED (01/08/2018 10:12 AM)XR knee complete 4 [...] MD Report Verified Date/Time:01/06/2018 11:15:08 Reading Location: [facility] [address] Radiology Reading Room Procedure Note Interface, External [...] Report Verified Date/Time: 01/06/2018 11:15:08 Reading Location: [facility] [address] Radiology Reading Room knee complete 4 views [...] MD Report Verified Date/Time:01/06/2018 11:15:08 Reading Location: [facility] [address] Radiology Reading Room Procedure Note Interface, External [...] Report Verified Date/Time: 01/06/2018 11:15:08 Reading Location: [facility] [address] Radiology Reading Room Cortisol, 60 minutes (01/05/2018 10:14 PM) Component Value Ref Range Cortisol, Baseline 4.8 mcg/dL Cortisol 30 minute 9.2 mcg/dL Cortisol, 60 Minute 12.6 ug/dL Specimen Performing Laboratory Blood - Arm, [place] [address] Narrative ACTH STIMULATION TEST INTERPRETATION GUIDELINES (Synonyms: [...] Specimen Performing Laboratory Blood - Arm, Left [address] [address] Narrative ACTH STIMULATION TEST INTERPRETATION GUIDELINES (Synonyms: [...] Performing Laboratory Blood - Arm, Left [facility] [address] [address] Narrative ACTH STIMULATION TEST INTERPRETATION GUIDELINES (Synonyms: [...] stimulation. Procedure Abnormality Status --------- ------ Cortisol, baseline[[id number]] Final result Cortisol, 30 minutes[[id number]] Final result Cortisol, 60 minutes[[id number]] Final result Please view results for these tests on the individual orders. ACTH (01/05/2018 9:12 PM) Component Value Ref Range ACTH 10 6 - 50 pg/mL Comment: Reference range applies only to the specimens collected between 7am-10am. Specimen Performing Laboratory Blood - Arm, [facility] [address] [address] Narrative Performing Lab [facility] [address] [address] Clau Avila MD, PhD Manual Differential (01/05/2018 6:10 AM)Only the most recent of6 resultswithin the time period is included. Component Value Ref Range Total Counted WBC Morphology Normal Platelet Morphology Normal Anisocytosis 1+ few Specimen Performing Laboratory Blood - Arm, [address] [address] Cortisol (01/05/2018 6:10 AM) Component Value Ref Range Cortisol, Total 2.7 (L) 3.7 - 19.4 ug/dL Specimen Performing Laboratory Blood - Arm, [address] [address] Vitamin B12 and Folate (01/03/2018 2:57 PM) Component Value Ref Range Vitamin B12 829 (H) 213 - 816 pg/mL Folate 18.9 >=7.0 ng/mL Specimen Performing Laboratory Blood - Arm, Right [facility] [address] [place] [address], [place] [address] Hereditary Hemochromatosis DNA (01/01/2018 5:26 AM)Only the [...] for at-risk family members. Pablo Meade, Ph.D., [facility] Director, Molecular Genetics Hereditary hemochromatosis (HH) is [...] of these results, please contact your local [facility] genetic counselor or call [phone] ([phone]). This test was developed and its analytical performance characteristics have been determined by [employer], [place], [place]. It has not been cleared or approved by the FDA. This assay has been validated pursuant to the CLIA regulations and is used for clinical purposes. For more information on this test, go to http://education.MentiNova/faq/hemochromatos Specimen Performing Laboratory Blood - Line, Venous [employer] [facility] [address] [place] [address] Narrative Performing Lab [address] [facility], [address] [place] [address] [place] [address] Ly Hansen MD, PhD CT chest without IV contrast (12/31/2017 7:21 PM) Specimen Performing Laboratory GE RIS Narrative FINAL REPORT HISTORY: Lung nodule, [...] splenomegaly and upper abdominal ascites. Signed: Sol Del Rosario MD Report Verified Date/Time:12/31/2017 19:24:12 Reading Location: [address] Consult Reading Room Procedure Note Interface, External Ris In - 12/31/2017 7:26 PM AEROSPACE QUALITY ENGINEER FINAL REPORT HISTORY: Lung nodule, >=1cm [...] splenomegaly and upper abdominal ascites. Signed: Sol Del Rosario MD Report Verified Date/Time: 12/31/2017 19:24:12 Reading Location: [address] Consult Reading Room Blood gas, arterial [...] Performing Laboratory Blood, Arterial - Arm, [address] [address] Peripheral Blood Smear - Hold only (12/31/2017 4:48 PM) Component Value Ref Range Peripheral Smear Save prepared and saved smear, 12/31/17 Specimen Performing Laboratory Blood - Arm, [address] [address] Reticulocyte count (12/31/2017 4:48 PM) Component Value Ref Range % Retic 3.5 (H) 0.5 - 1.8 % Specimen Performing Laboratory Blood - Arm, [address] [place] [address] Lactate dehydrogenase (LDH) (12/31/2017 4:48 PM) Component Value Ref Range LDH 112 (L) 125 - 220 U/L Specimen Performing Laboratory Blood - Arm, Right [facility] [id number] [place] [address] [place] myocardial perfusion SPECT,pharm(Lexiscan) (12/31/2017 12:10 PM) Specimen Performing Laboratory Induction Manager Narrative FINAL REPORT PROCEDURE:Rest/Stress MYOCARDIAL PERFUSION SPECT with regadenoson\\XA9\\ CPT CODE:88466 INDICATION:Liver transplant evaluation HISTORY:Cardiac risk factors: Stroke. [...] Normal extracardiac tracer distribution.6. No previous [facility] study for comparison. NONINVASIVE RISK STRATIFICATION: The above findings are considered low risk (<1% annual mortality rate) based on the following criterion: - Normal or small myocardial perfusion defect at rest or with stress (JACC. 2012;59(9):857-81.) Signed: Mabel Napier MD Report Verified Date/Time:12/31/2017 15:12:03 Reading Location: [address] Reading Room Procedure Note Interface, External Ris In - 12/31/2017 3:14 PM AEROSPACE QUALITY ENGINEER FINAL REPORT PROCEDURE: Rest/Stress MYOCARDIAL PERFUSION SPECT with regadenoson\\XA9\\ CPT CODE: 81593 INDICATION: Liver transplant evaluation HISTORY: Cardiac risk [...] tracer distribution. 6. No previous [facility] study for comparison. NONINVASIVE RISK STRATIFICATION: The above findings are considered low risk (<1% annual mortality rate) based on the following criterion: - Normal or small myocardial perfusion defect at rest or with stress ([facility]. 2012;59(7):990-09.) Signed: Mabel Napier MD Report Verified Date/Time: 12/31/2017 15:12:03 Reading Location: [address] Reading Room Treadmill tolerance(Non-Nuclear Treadmill) (12/31/2017 10:40 AM) Specimen Performing Laboratory GE MUSE Narrative Protocol Name Lexiscan Time In Exercise [...] No meds Confirmed by fellow Patrick Katz ([id number]) on 12/31/2017 10:58:52 AM Confirmed by MD COKER JORGE ([id number]) on 01/02/2018 11:06:54 AM Procedure Note Interface, External Ris In - 01/02/2018 11:07 AM AEROSPACE QUALITY ENGINEER Protocol Name Lexiscan Time In Exercise [...] No meds Confirmed by fellow Patrick Katz ([id number]) on 12/31/2017 10:58:52 AM Confirmed by MD COKER JORGE ([id number]) on 01/02/2018 11:06:54 AM ECHOCARDIOGRAM REPORT - SCAN (12/31/2017 9:50 AM)PERIPHERAL VASCULAR REPORT - SCAN (12/31/2017 7:20 AM)XR chest 2 views (12/30/2017 11:15 PM) Specimen Performing Laboratory GE RIS Narrative FINAL REPORT EXAMINATION: 2 VIEW [...] for further evaluation if warranted. Signed: Cash Stahl MD Report Verified Date/Time:12/30/2017 23:32:31 Reading Location: [address] [place] Reading Room Procedure Note Interface, External Ris In - 12/30/2017 11:34 PM AEROSPACE QUALITY ENGINEER FINAL REPORT EXAMINATION: 2 VIEW CHEST [...] for further evaluation if warranted. Signed: Cash Stahl MD Report Verified Date/Time: 12/30/2017 23:32:31 Reading Location: [address] [place] Reading Room mandible min 4 views (12/30/2017 [...] small scattered sclerotic calvarial foci. Signed: Cash Stahl MD Report Verified Date/Time:12/31/2017 01:37:57 Reading Location: [address] Reading Room Procedure Note Interface, External Ris In - 12/31/2017 1:40 AM AEROSPACE QUALITY ENGINEER FINAL REPORT EXAMINATION: MANDIBULAR SERIES, 6 [...] small scattered sclerotic calvarial foci. Signed: Cash Stahl MD Report Verified Date/Time: 12/31/2017 01:37:57 Reading Location: [address] Reading Room W CONTRAST & DOPPLER (12/30/2017 7:06 PM) Component Value Ref Range Ejection Fraction Specimen Performing Laboratory [facility] ECHO HEARTLAB MKCKESSON CPACS Narrative Transthoracic Echocardiography Report (TTE) Demographics Patient Name Lamar ARRIETAte of Study 12/30/2017 [id number] Male Visit Number [id number] Unknown [id number] Room Number 923 Number Date of Birth1965Referring Physician Pacheco Mota MD Age52 year(s)Director Custom Judi Pearson Interpreting [facility] Needs to be Pre Physician [...] External Ris In - 12/31/2017 9:21 AM AEROSPACE QUALITY ENGINEER Transthoracic Echocardiography Report (TTE) Demographics Patient Name ABHISHEK ARRIETA Date of Study 12/30/2017 Gender Male Visit Number [id number] Race Unknown Room Number 923 Number Date of 1965 Referring Physician Pacheco Mota MD Age 52 year(s) Director Custom Judi Pearson Interpreting [facility] Needs to be Pre Physician [...] Ref Range Ejection Fraction Specimen Performing Laboratory [facility]CHO HEARTLAB CKESSON [facility] Impressions Right Impression 1. There is <50% [...] Patient Name Madison ARRIETA of Study 12/30/2017 [id number] Visit Number [id number] Male Accession Number [id number] [facility] 1965 [facility] PhysicianKumar SonographerMassiel Pittman.InterpretingJ. Gregory Odell T Physician , WOLF Procedure Type of Study: Cerebral: Carotid, CAROTID DOPPLER, BILATERAL. Indications for Study:Liver transplant evaluation. Patient Status:Routine. Study Location:Vascular Lab. Technical Quality:Adequate visualization. Risk Factors History of Disease + +----+ + !Diagnosis !Date!Comments ! + +----+ + !History/Risk!!Alcoholic cirrhosis, Ascites, Liver Failure, POLLY! !Factors:!! ! + +----+ + Procedure Note Interface, External Ris In - 12/31/2017 5:43 AM AEROSPACE QUALITY ENGINEER PV LAB - Carotid Duplex Study Demographics Patient Name ABHISHEK ARRIETA Date of Study 12/30/2017 Age 52 Visit Number [id number] Gender Male Accession Number [id number] Date of 1965 Referring Ananda Mckay Room Number 923 Physician Noman Director Custom Massiel Riddle Interpreting Gregory Lopez [facility] Physician , RPVI Procedure Type of Study: [...] This test was performed using the Siemens ([employer]) Chemiluminescent method. Values obtained from different assay methods cannot be used interchangeably. CA19-9 levels, regardless of value, should not be interpreted as absolute evidence of the presence or absence of disease. Specimen Performing Laboratory Blood [facility] [id number] [place] [address] Narrative Performing Lab [facility] [address] [place] [address] Clau Avila MD, PhD Hemoglobin A1c (12/30/2017 3:19 PM) Component Value Ref Range Hemoglobin A1C 4.1 (L) 4.3 - 6.1 % Specimen Performing Laboratory Blood [facility] [address] [address] Nxevf-4-Xuffplvcisj Phenotype (12/30/2017 3:18 PM) Component Value Ref Range A-1 Antitryp Phenotyp SEE BELOW Comment: THIS PATIENT'S LNGYD-8-ZYRPXAYEBPD PHENOTYPE IS PI*MM. 90% of normal individuals have the MM phenotype, with normal quantitative AAT levels. Many phenotypic patterns have been described, including deficiency states with F, S, Z, or other alleles. As a general estimation, compared to M allele of 100% of normal O-8-Bzjiiiickzj protein, the S allele produces approximately 60% and the Z allele 20%. For example, an MS phenotype would have about 80% of normal F-8-Brfjxfzjiaq protein level, a 50% contribution from the M allele and 30% from the S allele. A ZZ phenotype would have about 20% of normal levels, a 10% contribution from each Z gene. The F allele has normal S-3-Hrokxrwythl levels, but the kinetics of elastase inhibition [...] phenotype. Specimen Performing Laboratory Blood - Other [employer] [facility] [address] [address] Narrative Performing Lab EZ [facility] [address] [address] Clau Avila MD, PhD Testosterone, free + total (12/30/2017 3:18 PM) Component Value Ref Range Testosterone 90 (L) 250 - 1100 ng/dL Testosterone, Free 12.6 (L) 35.0 - 155.0 pg/mL Comment: This test was developed and its analytical performance characteristics have been determined by [facility]. It has not been cleared or approved by the US Food and Drug Administration. This assay has been validated pursuant to the CLIA regulations and is used for clinical purposes. Specimen Performing Laboratory Blood [employer] [facility] [employer] [address] [address] Narrative Performing Lab *SPL [facility] [place] [employer] [place], [address] [place] [phone] Clau Avila MD, PhD Iron, TIBC, % sat. (without ferritin) (12/30/2017 3:17 PM) Component Value Ref Range Iron 90 40 - 160 ug/dL TIBC 85 (L) 250 - 450 ug/dL Iron % Saturation 106 (H) 20 - 55 % Specimen Performing Laboratory Blood [facility] [address] [place] [address] HIV-1 Antigen with HIV-1/2 Antibody (12/30/2017 3:17 PM) Component Value Ref Range HIV-1 Antigen with HIV 1&2 Antibody Nonreactive Nonreactive Specimen Performing Laboratory Blood [address] [address] Hepatitis C antibody (12/30/2017 3:17 PM) Component Value Ref Range Hepatitis C Ab Nonreactive Nonreactive Specimen Performing Laboratory [address] [address] Hepatitis A antibody, IgM (12/30/2017 3:17 PM) Component Value Ref Range Hep A IgM Nonreactive Nonreactive Specimen Performing Laboratory [address] [address] Hepatitis B core antibody, IgM (12/30/2017 3:17 PM) Component Value Ref Range Hep B C IgM Nonreactive Nonreactive Specimen Performing Laboratory [address] [address] Hepatitis B core antibody, total (12/30/2017 3:17 PM) Component Value Ref Range Hep B Core Total Ab Nonreactive Nonreactive Specimen Performing Laboratory [address] [address] Vitamin D, 25-Hydroxy (12/30/2017 3:17 PM) Component Value Ref Range Vitamin D 25-Hydroxy 6.9 6.6 - 49.9 ng/mL Specimen Performing Laboratory [address] [address] Narrative Effective 08/06/2017: Reference Range Change New: 6.6-49.9 ng/mL Previous: 13.0-47.8 ng/mL Recommended Vitamin D Target Range: 30.0-40.0 ng/mL RPR (12/30/2017 3:17 PM) Component Value Ref Range RPR Nonreactive Nonreactive Specimen Performing Laboratory [address] [address] Hepatitis B surface antibody (12/30/2017 3:17 PM) Component Value Ref Range Hep B S Ab <8.0 <8.0 mIU/mL Specimen Performing Laboratory [address] [address] Hepatitis B surface antigen (12/30/2017 3:17 PM) Component Value Ref Range hepatitis B Surface Ag Nonreactive Nonreactive Specimen Performing Laboratory [facility] [address] Fibrinogen (12/30/2017 3:17 PM) Component Value Ref Range Fibrinogen 161 (L) 225 - 434 mg/dl Specimen Performing Laboratory [address] [address] T3 (12/30/2017 3:17 PM) Component Value Ref Range T3, Total 42 (L) 48 - 159 ng/dL Specimen Performing Laboratory [address] [address] Transferrin (12/30/2017 3:17 PM) Component Value Ref Range Transferrin 65 (L) 174 - 382 mg/dL Specimen Performing Laboratory [address] [address] Narrative Specimen slightly icteric TSH (12/30/2017 3:17 PM) Component Value Ref Range TSH 1.55 0.35 - 4.94 uIU/mL Specimen Performing Laboratory [address] [address] T4 (12/30/2017 3:17 PM) Component Value Ref Range T4, Total 3.5 (L) 4.9 - 11.7 ug/dL Specimen Performing Laboratory [address] [address] PSA (12/30/2017 3:17 PM) Component Value Ref Range PSA 0.1 0.0 - 4.0 ng/mL Specimen Performing Laboratory [address] [address] Ferritin (12/30/2017 3:17 PM) Component Value Ref Range Ferritin 1460 (H) 5 - 275 ng/mL Specimen Performing Laboratory [address] [address] Carcinoembryonic Antigen (CEA) (12/30/2017 3:17 PM) Component Value Ref Range CEA, SERUM 3.0 0.0 - 5.0 ng/mL Specimen Performing Laboratory [address] [address] Cytomegalovirus antibody, IgM (12/30/2017 3:16 PM) Component Value Ref Range CMV IgM Negative Specimen Performing Laboratory Blood - Arm, Right [facility] [address] [address] Cryptococcal antigen (12/30/2017 3:16 PM) Component Value Ref Range Cryptococcal Antigen, Serum Negative Negative, Interference Specimen Performing Laboratory Blood - Arm, [address] [address] EBV-VCA antibody, IgM (12/30/2017 3:16 PM) Component Value Ref Range EBV VCA IgM Negative Specimen Performing Laboratory Blood - Arm, [address] [address] EBV-VCA antibody, IgG (12/30/2017 3:16 PM) Component Value Ref Range EBV VCA IgG Positive Specimen Performing Laboratory Blood - Arm, [address] [address] Cytomegalovirus antibody, IgG (12/30/2017 3:16 PM) Component Value Ref Range CMV IgG Positive Specimen Performing Laboratory Blood - Arm, [address] [address] Uric acid (12/30/2017 3:16 PM) Component Value Ref Range Uric Acid 8.5 (H) 2.6 - 7.2 mg/dL Specimen Performing Laboratory Blood - Arm, [address] [address] Narrative Specimen slightly icteric Lipid panel (12/30/2017 3:16 PM) Component Value Ref Range Triglycerides 38 mg/dL Cholesterol 51 mg/dL HDL 10 mg/dL LDL Calculated 33 mg/dL Specimen Performing Laboratory Blood - Arm, [address] [address] Narrative Triglyceride Reference Range: Low Risk <150 [id number] High Risk 200-499 Very High Risk>=500 Cholesterol Reference Range: Low Risk <200 [id number] High Risk>240 HDL Cholesterol Reference Range: Low Risk >=60 High Risk <40 LDL Cholesterol Reference Range: Optimal<100 Near [id number] [id number] Very High >=190 Specimen slightly icteric Ethanol (12/29/2017 12:33 PM) Component Value Ref Range Ethanol Lvl <10 <=10 mg/dL Specimen Performing Laboratory Blood - Arm, [address] [place] [address] Albumin, body fluid (12/27/2017 7:03 PM) Component Value Ref Range Albumin, Fluid 0.4 gm/dL Specimen Performing Laboratory Body Fluid - Ascites [address] [address] Narrative Reference Range:No Normals Assay performance has not been validated for this type of specimen. RHYTHM STRIP - SCAN (09/08/2017 12:02 PM)Rapid drug screen, urine (09/05/2017 6 :02 PM) Component Value Ref Range Barbiturate Screen Negative Negative Benzodiazepine Screen Negative Negative Cocaine (Metab.) Screen Negative Negative Methadone Screen Negative Negative Opiate Screen Negative Negative Cannabinoid Screen Negative Negative Amph/Methamph Screen Negative Negative Phencyclidine Screen Negative Negative Oxycodone Screen Negative Negative Specimen Performing Laboratory Urine - Urine, Clean Catch [address] [address] Narrative DRUGCUTOFF CONC. Cocaine 300 ng/mL Sjprcfqvycw80 ng/mL [id number] ng/mL Barbiturate 200 ng/mL Vfuaoxpmcpdcb70 ng/mL Xcrqlh228 ng/mL Methadone 300 ng/mL Amphetamine/ 1000 ng/mL Methamphetamine Oxycodone 300 ng/mL This assay provides an unconfirmed qualitative test result for the clinical management of patients in emergency situations. Chain of custody not maintained. Some ndaa-jpi-qrzxhjh medications, as well as adulterants, may cause inaccurate results. Clinical correlation should be applied. A more comprehensive drug screen or confirmation of a detected drug may be performed upon request. MR abdomen without & with IV contrast (09/05/2017 12:11 PM) Specimen Performing Laboratory Induction Manager Narrative FINAL REPORT MRI of the abdomen [...] and should be closely followed. Signed: Ten Julio MD Report Verified Date/Time:09/05/2017 13:52:35 Reading Location: [facility] C013Y CT Body Reading Room Procedure Note Interface, External Ris In - 09/05/2017 1:54 PM [employer] QUALITY ENGINEER FINAL REPORT MRI of the abdomen [...] and should be closely followed. Signed: Ten Julio MD Report Verified Date/Time: 09/05/2017 13:52:35 Reading Location: [facility] C013Y CT Body Reading Room after 08/12/2017
--- OUTSIDE RECORDS SUMMARY | 2018-08-13 15:01 | XMS REPORT ---
:1965 [facility] Address [address] [place] [address] Dr. [place] [address] [place] [id number] Care Team Providers Name Role Phone BRANDO AGUILAR Unavailable Unavailable RYANNE LARKIN Unavailable Unavailable BRYAN MUSA Unavailable Unavailable ANDREA DENTON Unavailable Unavailable OWEN MASON Unavailable Unavailable MARIAA HEATH Unavailable Unavailable JULIO ENRIQUEZ Unavailable Unavailable LORENJUAN Unavailable Unavailable Problems This patient has no known problems. Allergies, Adverse Reactions, Alerts This patient has no known allergies or adverse reactions. Medications This patient has no known medications. Results Test Description Test Time Test Comments Text Results Atomic Results Result Comments BONE AND/OR JOINT 2018-08-05 FINAL REPORT PATIENT ID: IMAGING, WHOLE BODY 16:45:00 [id number] PROCEDURE: BONE SCAN, WHOLE BODY CPT CODE: 66688 INDICATION: L3 vertebral body lesion follow-up R91.1 [...] No specific evidence to indicate bony neoplastic disease.2. Multiple rib and vertebral lesions consistent with prior trauma of varying ages. Comparison was made with CT Abdomen/Pelvis dated 05/08/2018. Signed: Prakash Reideport Verified Date/Time: 08/05/2018 16:45:34 Reading Location: [address] [address] [facility] Med Reading Room IN, VERTEBROPLASTY 2018-06-04 Reason for Addendum BeginsREPORT THORACIC, S 17:23:00 exam:->T11, T12, L2 STATUS:A PATIENT ID: vanessa [id number] Addendum: fractures June 04, 2018 1720 hours It should be noted that the number images saved to PACS procedure are extremely limited due to equipment malfunction and image archiving problems. Because of these issues, two views of the thoracic and lumbar spine were obtained following the procedure Signed: Karina Rain MDReport Verified Date/Time: 06/04/2018 17:23:27 Reading Location: [address] Radiology Reading RoomAddendum EndsFINAL REPORT HISTORY: T11, T12 and L2 wedge [...] L3 vertebral body. Total fluoroscopy time: 17 minsEstimated dose reported as (Ka,r): 1550 mGy Signed: Karina Rain MDReport Verified Date/Time: 06/03/2018 17:56:43 Reading Location: [place] [address] Angio Body Reading Room A FETOPROTEIN (AFP), TUMOR MARKER 2018-06-02 15:20:00 Test Item Value Reference Range Comments ALPHA-FETOPROTEIN (BEAKER) (test terx=4898) 2.2 ng/mL <10.0 COMPREHENSIVE METABOLIC [id number] 14:54:00 Test Item Value Reference Range Comments TOTAL PROTEIN (BEAKER) 6.5 gm/dL 6.0-8.3 (test brwv=544) ALBUMIN (BEAKER) (test 3.6 g/dL 3.5-5.0 gxsw=6114) ALKALINE PHOSPHATASE 342 U/L 40-150 (BEAKER) (test kfew=047) BILIRUBIN TOTAL (BEAKER) 4.2 mg/dL 0.2-1.2 (test tudf=767) SODIUM (BEAKER) (test 128 meq/L 136-145 tcto=284) POTASSIUM (BEAKER) (test 4.6 meq/L 3.5-5.1 nsnn=633) CHLORIDE (BEAKER) (test 100 meq/L 98-107 rqjk=582) CO2 (BEAKER) (test 21 meq/L 22-29 wpkr=501) BLOOD UREA NITROGEN 21 mg/dL 7-21 (BEAKER) (test nyvb=608) CREATININE (BEAKER) (test 1.37 mg/dL 0.57-1.25 funn=339) GLUCOSE RANDOM (BEAKER) 108 mg/dL 70-105 (test mrye=203) CALCIUM (BEAKER) (test 9.5 mg/dL 8.4-10.2 wgmo=192) AST (SGOT) (BEAKER) (test 25 U/L 5-34 rddr=817) ALT (SGPT) (BEAKER) (test 10 U/L 6-55 epeq=411) EGFR (BEAKER) (test 54 mL/min/1.73 sq m ESTIMATED GFR IS NOT ghkh=4650) ACCURATE CREATININE CLEARANCE IN PREDICTING GLOMERULAR FILTRATION RATE. ESTIMATED GFR IS NOT APPLICABLE FOR DIALYSIS PATIENTS. Specimen slightly ictericBILIRUBIN, [id number] 14:54:00 Test Item Value Reference Range Comments BILIRUBIN DIRECT (BEAKER) (test sxtw=298) 2.1 mg/dL 0.1-0.5 CBC W/PLT COUNT & AUTO [id number] 14:52:00 Test Item Value Reference Range Comments WHITE BLOOD CELL COUNT (BEAKER) (test ifmo=250) 3.9 K/ L 3.5-10.5 RED BLOOD CELL COUNT (BEAKER) (test nbkb=241) 2.69 M/ L 4.63-6.08 HEMOGLOBIN (BEAKER) (test wdge=862) 9.1 GM/DL 13.7-17.5 HEMATOCRIT (BEAKER) (test ngoi=200) 27.3 % 40.1-51.0 MEAN CORPUSCULAR VOLUME (BEAKER) (test auur=711) 101.5 fL 79.0-92.2 MEAN CORPUSCULAR HEMOGLOBIN (BEAKER) (test 33.8 pg 25.7-32.2 uoza=041) MEAN CORPUSCULAR HEMOGLOBIN CONC (BEAKER) (test 33.3 GM/DL 32.3-36.5 xfre=509) RED CELL DISTRIBUTION WIDTH (BEAKER) (test 18.6 % 11.6-14.4 mcnr=608) PLATELET COUNT (BEAKER) (test ypnz=663) 71 K/CU MM 150-450 MEAN PLATELET VOLUME (BEAKER) (test yrgf=424) 9.6 fL 9.4-12.4 NUCLEATED RED BLOOD CELLS (BEAKER) (test 0 /100 WBC 0-0 cmwj=580) NEUTROPHILS RELATIVE PERCENT (BEAKER) (test 62 % jopt=390) LYMPHOCYTES RELATIVE PERCENT (BEAKER) (test 16 % hyiq=708) MONOCYTES RELATIVE PERCENT (BEAKER) (test 17 % ontv=719) EOSINOPHILS RELATIVE PERCENT (BEAKER) (test 5 % mkee=004) BASOPHILS RELATIVE PERCENT (BEAKER) (test 0 % ajoe=770) NEUTROPHILS ABSOLUTE COUNT (BEAKER) (test 2.41 K/ L 1.78-5.38 uyhz=454) LYMPHOCYTES ABSOLUTE COUNT (BEAKER) (test 0.62 K/ L 1.32-3.57 ippd=970) MONOCYTES ABSOLUTE COUNT (BEAKER) (test ebou=923) 0.65 K/ L 0.30-0.82 EOSINOPHILS ABSOLUTE COUNT (BEAKER) (test 0.20 K/ L 0.04-0.54 vhif=762) BASOPHILS ABSOLUTE COUNT (BEAKER) (test frei=704) 0.01 K/ L 0.01-0.08 IMMATURE GRANULOCYTES-RELATIVE PERCENT (BEAKER) 0 % 0-1 (test gkdi=2077) PROTHROMBIN [id number] 14:50:00 Test Item Value Reference Range Comments PROTIME (BEAKER) (test wxra=084) 19.5 seconds 11.7-14.7 INR (BEAKER) (test lurw=709) 1.7 <=5.9 RECOMMENDED COUMADIN/WARFARIN INR THERAPY RANGESSTANDARD DOSE: 2.0 - 3.0 Includes: PROPHYLAXIS forvenous thrombosis, systemic embolization; TREATMENT for venous thrombosis and/or pulmonary embolus.HIGH RISK: Target INR is 2.5-3.5 for patients with mechanical heart valves.BODY FLUID CULTURE + GRAM [id number] 13:19:00 Test Item Value Reference Range Comments CULTURE (BEAKER) (test wxoy=2820) No growth GRAM STAIN RESULT (BEAKER) (test No WBCs hnyf=9391) GRAM STAIN RESULT (BEAKER) (test No organisms seen lpzx=60135) [id number] 17:36:00 Test Item Value Reference Range Comments SODIUM (BEAKER) (test cnjn=698) 133 meq/L 136-145 POTASSIUM (BEAKER) (test zglg=299) 3.2 meq/L 3.5-5.1 CHLORIDE (BEAKER) (test lwmu=004) 102 meq/L 98-107 CO2 (BEAKER) (test ytth=850) 21 meq/L 22-29 [id number] 13:21:00 Test Item Value Reference Range Comments SODIUM (BEAKER) (test xbse=735) 134 meq/L 136-145 POTASSIUM (BEAKER) (test mefz=634) 3.0 meq/L 3.5-5.1 CHLORIDE (BEAKER) (test qmry=670) 103 meq/L 98-107 CO2 (BEAKER) (test cnqn=890) 22 meq/L 22-29 CALCIUM, [id number] 04:54:00 Test Item Value Reference Range Comments CALCIUM IONIZED (BEAKER) (test emxz=525) 1.09 mmol/L 1.12-1.27 PH, BLOOD (BEAKER) (test kvqg=8353) 7.35 [id number] 04:04:00 Test Item Value Reference Range Comments PHOSPHORUS (BEAKER) (test wphg=006) 2.4 mg/dL 2.3-4.7 [id number] 04:04:00 Test Item Value Reference Range Comments MAGNESIUM (BEAKER) (test kpsl=657) 2.0 mg/dL 1.6-2.6 HEPATIC FUNCTION [id number] 04:04:00 Test Item Value Reference Range Comments TOTAL PROTEIN (BEAKER) (test vuue=278) 5.8 gm/dL 6.0-8.3 ALBUMIN (BEAKER) (test vumg=5729) 4.1 g/dL 3.5-5.0 BILIRUBIN TOTAL (BEAKER) (test qayv=224) 3.9 mg/dL 0.2-1.2 BILIRUBIN DIRECT (BEAKER) (test xuzw=068) 2.0 mg/dL 0.1-0.5 ALKALINE PHOSPHATASE (BEAKER) (test tpxa=776) 123 U/L 40-150 AST (SGOT) (BEAKER) (test zoxn=592) 14 U/L 5-34 ALT (SGPT) (BEAKER) (test ujii=058) < U/L 6-55 Specimen slightly ictericCOMPREHENSIVE METABOLIC [id number] 04:04:00 Test Item Value Reference Range Comments TOTAL PROTEIN (BEAKER) 5.8 gm/dL 6.0-8.3 (test qfli=147) ALBUMIN (BEAKER) (test 4.1 g/dL 3.5-5.0 vifu=7947) ALKALINE PHOSPHATASE 123 U/L 40-150 (BEAKER) (test ovkh=133) BILIRUBIN TOTAL (BEAKER) 3.9 mg/dL 0.2-1.2 (test pohy=181) SODIUM (BEAKER) (test 135 meq/L 136-145 zfav=257) POTASSIUM (BEAKER) (test 2.9 meq/L 3.5-5.1 mogm=137) CHLORIDE (BEAKER) (test 103 meq/L 98-107 mrud=178) CO2 (BEAKER) (test 21 meq/L 22-29 cank=533) BLOOD UREA NITROGEN 18 mg/dL 7-21 (BEAKER) (test tovw=134) CREATININE (BEAKER) (test 1.32 mg/dL 0.57-1.25 niux=581) GLUCOSE RANDOM (BEAKER) 126 mg/dL 70-105 (test oowh=695) CALCIUM (BEAKER) (test 9.8 mg/dL 8.4-10.2 xfvi=035) AST (SGOT) (BEAKER) (test 14 U/L 5-34 flnp=167) ALT (SGPT) (BEAKER) (test < U/L 6-55 tpqv=222) EGFR (BEAKER) (test 57 mL/min/1.73 sq m ESTIMATED GFR IS NOT mcve=9342) ACCURATE CREATININE CLEARANCE IN PREDICTING GLOMERULAR FILTRATION RATE. ESTIMATED GFR IS NOT APPLICABLE FOR DIALYSIS PATIENTS. Specimen slightly ictericPROTHROMBIN TIME/[id number] 04:02:00 Test Item Value Reference Range Comments PROTIME (BEAKER) (test gijj=274) 25.1 seconds 11.7-14.7 INR (BEAKER) (test kazf=641) 2.3 <=5.9 RECOMMENDED COUMADIN/WARFARIN INR THERAPY RANGESSTANDARD DOSE: 2.0 - 3.0 Includes: PROPHYLAXIS forvenous thrombosis, systemic embolization; TREATMENT for venous thrombosis and/or pulmonary embolus.HIGH RISK: Target INR is 2.5-3.5 for patients with mechanical heart valves.CBC W/PLT COUNT & AUTO [id number] 03:55:00 Test Item Value Reference Range Comments WHITE BLOOD CELL COUNT (BEAKER) (test ogrn=110) 3.6 K/ L 3.5-10.5 RED BLOOD CELL COUNT (BEAKER) (test fdag=876) 2.48 M/ L 4.63-6.08 HEMOGLOBIN (BEAKER) (test fltl=110) 7.9 GM/DL 13.7-17.5 HEMATOCRIT (BEAKER) (test gtlp=295) 23.7 % 40.1-51.0 MEAN CORPUSCULAR VOLUME (BEAKER) (test iuys=402) 95.6 fL 79.0-92.2 MEAN CORPUSCULAR HEMOGLOBIN (BEAKER) (test 31.9 pg 25.7-32.2 fgcz=397) MEAN CORPUSCULAR HEMOGLOBIN CONC (BEAKER) (test 33.3 GM/DL 32.3-36.5 eyaj=141) RED CELL DISTRIBUTION WIDTH (BEAKER) (test 18.8 % 11.6-14.4 qvar=581) PLATELET COUNT (BEAKER) (test lqlu=834) 38 K/CU MM 150-450 MEAN PLATELET VOLUME (BEAKER) (test favg=573) 9.3 fL 9.4-12.4 NUCLEATED RED BLOOD CELLS (BEAKER) (test 0 /100 WBC 0-0 hkev=064) NEUTROPHILS RELATIVE PERCENT (BEAKER) (test 57 % uyng=015) LYMPHOCYTES RELATIVE PERCENT (BEAKER) (test 15 % bdio=480) MONOCYTES RELATIVE PERCENT (BEAKER) (test 22 % sesq=356) EOSINOPHILS RELATIVE PERCENT (BEAKER) (test 4 % csen=774) BASOPHILS RELATIVE PERCENT (BEAKER) (test 0 % wjis=265) NEUTROPHILS ABSOLUTE COUNT (BEAKER) (test 2.09 K/ L 1.78-5.38 isyp=125) LYMPHOCYTES ABSOLUTE COUNT (BEAKER) (test 0.54 K/ L 1.32-3.57 umtx=818) MONOCYTES ABSOLUTE COUNT (BEAKER) (test jvwu=055) 0.81 K/ L 0.30-0.82 EOSINOPHILS ABSOLUTE COUNT (BEAKER) (test 0.15 K/ L 0.04-0.54 ajup=438) BASOPHILS ABSOLUTE COUNT (BEAKER) (test gyif=216) 0.01 K/ L 0.01-0.08 IMMATURE GRANULOCYTES-RELATIVE PERCENT (BEAKER) 1 % 0-1 (test uoaw=2575) [id number] 18:07:00 Test Item Value Reference Range Comments SODIUM (BEAKER) (test zjwe=748) 132 meq/L 136-145 POTASSIUM (BEAKER) (test 2.9 meq/L 3.5-5.1 Specimen slightly hemolyzed mtxm=250) CHLORIDE (BEAKER) (test 101 meq/L 98-107 kkgp=942) CO2 (BEAKER) (test cpxt=691) 18 meq/L 22-29 LACTIC ACID, VENOUS, WHOLE [id number] 16:43:00 Test Item Value Reference Range Comments LACTATE BLOOD VENOUS (2) 1.6 mmol/L 0.5-2.2 Specimen slightly hemolyzed (BEAKER) (test ocrm=9296) Effective 02/28/2016: Units/Reference Range ChangeNew: 0.5-2.2 mmol/L Previous: 5 -20 mg/dLSpecimen slightly ictericBODY FLUID CULTURE + GRAM [id number] 12: 08:00 Test Item Value Reference Range Comments CULTURE (BEAKER) (test ahun=3442) No growth GRAM STAIN RESULT (BEAKER) (test <1+ WBCs qanx=9823) GRAM STAIN RESULT (BEAKER) (test No organisms seen unny=69739) [id number] 08:10:00 Test Item Value Reference Range Comments PHOSPHORUS (BEAKER) (test mklj=377) 2.8 mg/dL 2.3-4.7 [id number] 08:10:00 Test Item Value Reference Range Comments MAGNESIUM (BEAKER) (test lzkb=172) 2.2 mg/dL 1.6-2.6 COMPREHENSIVE METABOLIC [id number] 08:10:00 Test Item Value Reference Range Comments TOTAL PROTEIN (BEAKER) 6.2 gm/dL 6.0-8.3 (test rbsb=038) ALBUMIN (BEAKER) (test 4.4 g/dL 3.5-5.0 srii=6316) ALKALINE PHOSPHATASE 121 U/L 40-150 (BEAKER) (test wsvt=194) BILIRUBIN TOTAL (BEAKER) 4.4 mg/dL 0.2-1.2 (test vwql=041) SODIUM (BEAKER) (test 135 meq/L 136-145 dgjl=897) POTASSIUM (BEAKER) (test 2.8 meq/L 3.5-5.1 blwv=083) CHLORIDE (BEAKER) (test 102 meq/L 98-107 fhki=473) CO2 (BEAKER) (test 21 meq/L 22-29 wbsl=823) BLOOD UREA NITROGEN 20 mg/dL 7-21 (BEAKER) (test ubqp=656) CREATININE (BEAKER) (test 1.34 mg/dL 0.57-1.25 jkyt=592) GLUCOSE RANDOM (BEAKER) 132 mg/dL 70-105 (test eeeb=991) CALCIUM (BEAKER) (test 10.0 mg/dL 8.4-10.2 kuqa=965) AST (SGOT) (BEAKER) (test 16 U/L 5-34 nhyz=297) ALT (SGPT) (BEAKER) (test 6 U/L 6-55 yimz=911) EGFR (BEAKER) (test 56 mL/min/1.73 sq m ESTIMATED GFR IS NOT pssz=0265) ACCURATE CREATININE CLEARANCE IN PREDICTING GLOMERULAR FILTRATION RATE. ESTIMATED GFR IS NOT APPLICABLE FOR DIALYSIS PATIENTS. Specimen slightly ictericHEPATIC FUNCTION [id number] 08:10:00 Test Item Value Reference Range Comments TOTAL PROTEIN (BEAKER) (test wsfh=024) 6.2 gm/dL 6.0-8.3 ALBUMIN (BEAKER) (test wqyq=1058) 4.4 g/dL 3.5-5.0 BILIRUBIN TOTAL (BEAKER) (test vmpw=325) 4.4 mg/dL 0.2-1.2 BILIRUBIN DIRECT (BEAKER) (test deli=839) 1.9 mg/dL 0.1-0.5 ALKALINE PHOSPHATASE (BEAKER) (test xesm=386) 121 U/L 40-150 AST (SGOT) (BEAKER) (test nynx=811) 16 U/L 5-34 ALT (SGPT) (BEAKER) (test sfzn=315) 6 U/L 6-55 Specimen slightly ictericCALCIUM, [id number] 07:20:00 Test Item Value Reference Range Comments CALCIUM IONIZED (BEAKER) (test msde=689) 1.01 mmol/L 1.12-1.27 PH, BLOOD (BEAKER) (test emej=1981) 7.49 CBC W/PLT COUNT & AUTO [id number] 06:59:00 Test Item Value Reference Range Comments WHITE BLOOD CELL COUNT (BEAKER) (test nctp=655) 4.1 K/ L 3.5-10.5 RED BLOOD CELL COUNT (BEAKER) (test dvps=409) 2.62 M/ L 4.63-6.08 HEMOGLOBIN (BEAKER) (test jems=085) 8.2 GM/DL 13.7-17.5 HEMATOCRIT (BEAKER) (test fhkm=657) 24.9 % 40.1-51.0 MEAN CORPUSCULAR VOLUME (BEAKER) (test kyby=192) 95.0 fL 79.0-92.2 MEAN CORPUSCULAR HEMOGLOBIN (BEAKER) (test 31.3 pg 25.7-32.2 lzjh=357) MEAN CORPUSCULAR HEMOGLOBIN CONC (BEAKER) (test 32.9 GM/DL 32.3-36.5 pelb=834) RED CELL DISTRIBUTION WIDTH (BEAKER) (test 18.6 % 11.6-14.4 phxq=491) PLATELET COUNT (BEAKER) (test qoen=253) 38 K/CU MM 150-450 MEAN PLATELET VOLUME (BEAKER) (test mnik=955) 9.3 fL 9.4-12.4 NUCLEATED RED BLOOD CELLS (BEAKER) (test 0 /100 WBC 0-0 osck=232) NEUTROPHILS RELATIVE PERCENT (BEAKER) (test 66 % bten=827) LYMPHOCYTES RELATIVE PERCENT (BEAKER) (test 12 % twat=564) MONOCYTES RELATIVE PERCENT (BEAKER) (test 18 % zcpj=386) EOSINOPHILS RELATIVE PERCENT (BEAKER) (test 3 % wzdn=034) BASOPHILS RELATIVE PERCENT (BEAKER) (test 1 % kime=658) NEUTROPHILS ABSOLUTE COUNT (BEAKER) (test 2.74 K/ L 1.78-5.38 osjm=298) LYMPHOCYTES ABSOLUTE COUNT (BEAKER) (test 0.49 K/ L 1.32-3.57 klhm=768) MONOCYTES ABSOLUTE COUNT (BEAKER) (test ksfi=335) 0.75 K/ L 0.30-0.82 EOSINOPHILS ABSOLUTE COUNT (BEAKER) (test 0.11 K/ L 0.04-0.54 ybcn=563) BASOPHILS ABSOLUTE COUNT (BEAKER) (test ivkz=865) 0.02 K/ L 0.01-0.08 IMMATURE GRANULOCYTES-RELATIVE PERCENT (BEAKER) 1 % 0-1 (test uiof=0946) PROTHROMBIN [id number] 06:56:00 Test Item Value Reference Range Comments PROTIME (BEAKER) (test bkwz=705) 24.5 seconds 11.7-14.7 INR (BEAKER) (test cwsg=450) 2.2 <=5.9 RECOMMENDED COUMADIN/WARFARIN INR THERAPY RANGESSTANDARD DOSE: 2.0 - 3.0 Includes: PROPHYLAXIS forvenous thrombosis, systemic embolization; TREATMENT for venous thrombosis and/or pulmonary embolus.HIGH RISK: Target INR is 2.5-3.5 for patients with mechanical heart valves.BODY FLUID CELL COUNT WITH [id number] 18:36:00 Test Item Value Reference Range Comments APPEARANCE FLUID (BEAKER) (test trxb=294) Hazy Clear COLOR FLUID (BEAKER) (test hnke=592) Yellow Colorless, Straw RBC FLUID (BEAKER) (test moka=247) 2000 /cu mm <=1 ADJUSTED WBC FLUID (BEAKER) (test wfyd=2989) 96 /cu mm <=5 LINING CELLS (BEAKER) (test jxob=6523) 2 /cu mm <=1 NEUTROPHILS FLUID (BEAKER) (test hzts=4764) 4 % LYMPHS FLUID (BEAKER) (test hdrt=490) 11 % MONO/MACROPHAGE FLUID (BEAKER) (test hfpz=527) 85 % EOSINOPHILS FLUID (BEAKER) (test wcic=176) 0 % BASO FLUID (BEAKER) (test ythu=170) 0 % CONTAINER BODY FLUID (BEAKER) (test zsjj=5968) EDTA Tube U/S, [id number] 12:49:00Limit to 4L due to AKIReason for exam:-> ascitesFINAL REPORT Indication: Ascites. Technique: Ultrasound guided paracentesis. Findings:Preliminary ultrasound confirms ascites. A safe window was identified in the midline (suprapubic). The procedure was explained to the patient and informed consent was signed. The skin was marked and prepped in standard sterile fashion. 2% lidocaine was used for local anesthesia. A 5 [place] needle catheter system was advanced into the peritoneal space. 3300 cc clear yellow fluid was taken off.Sample of the fluid was sent to the laboratory. Patient tolerated the procedure well. Impression: Ultrasound guided paracentesis. Signed: Aristeo Xiong MDReport Verified Date/ Time: 05/13/2018 12:49:12 Reading Location: [facility] [id number] Ultrasound Reading Room 12: 49 PMCALCIUM, [id number] 05:29:00 Test Item Value Reference Range Comments CALCIUM IONIZED (BEAKER) (test sbkt=314) 1.10 mmol/L 1.12-1.27 PH, BLOOD (BEAKER) (test djwx=1087) 7.35 B-TYPE NATRIURETIC FACTOR (BNP)2018-05-13 04:48:00 Test Item Value Reference Range Comments B-TYPE NATRIURETIC PEPTIDE (BEAKER) (test 274 pg/mL 0-100 knsl=934) [id number] 04:44:00 Test Item Value Reference Range Comments PHOSPHORUS (BEAKER) (test dpda=080) 3.0 mg/dL 2.3-4.7 [id number] 04:44:00 Test Item Value Reference Range Comments MAGNESIUM (BEAKER) (test ecaf=910) 2.0 mg/dL 1.6-2.6 COMPREHENSIVE METABOLIC [id number] 04:44:00 Test Item Value Reference Range Comments TOTAL PROTEIN (BEAKER) 6.2 gm/dL 6.0-8.3 (test gmlh=747) ALBUMIN (BEAKER) (test 4.3 g/dL 3.5-5.0 crby=5912) ALKALINE PHOSPHATASE 134 U/L 40-150 (BEAKER) (test jozo=451) BILIRUBIN TOTAL (BEAKER) 4.4 mg/dL 0.2-1.2 (test wght=957) SODIUM (BEAKER) (test 131 meq/L 136-145 uuqs=328) POTASSIUM (BEAKER) (test 3.7 meq/L 3.5-5.1 ysqo=446) CHLORIDE (BEAKER) (test 96 meq/L 98-107 xhyy=979) CO2 (BEAKER) (test 26 meq/L 22-29 pnge=846) BLOOD UREA NITROGEN 20 mg/dL 7-21 (BEAKER) (test inis=187) CREATININE (BEAKER) (test 1.60 mg/dL 0.57-1.25 kdmo=802) GLUCOSE RANDOM (BEAKER) 149 mg/dL 70-105 (test mjdd=309) CALCIUM (BEAKER) (test 10.0 mg/dL 8.4-10.2 scqz=745) AST (SGOT) (BEAKER) (test 18 U/L 5-34 ozpg=861) ALT (SGPT) (BEAKER) (test 7 U/L 6-55 yeft=070) EGFR (BEAKER) (test 46 mL/min/1.73 sq m ESTIMATED GFR IS NOT davc=5855) ACCURATE CREATININE CLEARANCE IN PREDICTING GLOMERULAR FILTRATION RATE. ESTIMATED GFR IS NOT APPLICABLE FOR DIALYSIS PATIENTS. Specimen slightly ictericHEPATIC FUNCTION [id number] 04:44:00 Test Item Value Reference Range Comments TOTAL PROTEIN (BEAKER) (test jdio=479) 6.2 gm/dL 6.0-8.3 ALBUMIN (BEAKER) (test zkas=0847) 4.3 g/dL 3.5-5.0 BILIRUBIN TOTAL (BEAKER) (test idix=173) 4.4 mg/dL 0.2-1.2 BILIRUBIN DIRECT (BEAKER) (test ugly=556) 2.4 mg/dL 0.1-0.5 ALKALINE PHOSPHATASE (BEAKER) (test knob=042) 134 U/L 40-150 AST (SGOT) (BEAKER) (test xytq=086) 18 U/L 5-34 ALT (SGPT) (BEAKER) (test qinv=803) 7 U/L 6-55 Specimen slightly ictericPROTHROMBIN [id number] 04:30:00 Test Item Value Reference Range Comments PROTIME (BEAKER) (test jdqt=826) 23.8 seconds 11.7-14.7 INR (BEAKER) (test wrxw=373) 2.1 <=5.9 RECOMMENDED COUMADIN/WARFARIN INR THERAPY RANGESSTANDARD DOSE: 2.0 - 3.0 Includes: PROPHYLAXIS forvenous thrombosis, systemic embolization; TREATMENT for venous thrombosis and/or pulmonary embolus.HIGH RISK: Target INR is 2.5-3.5 for patients with mechanical heart valves.CBC W/PLT COUNT & AUTO [id number] 04:19:00 Test Item Value Reference Range Comments WHITE BLOOD CELL COUNT (BEAKER) (test humy=835) 4.0 K/ L 3.5-10.5 RED BLOOD CELL COUNT (BEAKER) (test nxbt=650) 2.60 M/ L 4.63-6.08 HEMOGLOBIN (BEAKER) (test uzqe=897) 8.2 GM/DL 13.7-17.5 HEMATOCRIT (BEAKER) (test xhjb=347) 24.6 % 40.1-51.0 MEAN CORPUSCULAR VOLUME (BEAKER) (test ulwd=212) 94.6 fL 79.0-92.2 MEAN CORPUSCULAR HEMOGLOBIN (BEAKER) (test 31.5 pg 25.7-32.2 gewb=318) MEAN CORPUSCULAR HEMOGLOBIN CONC (BEAKER) (test 33.3 GM/DL 32.3-36.5 xdpo=964) RED CELL DISTRIBUTION WIDTH (BEAKER) (test 18.1 % 11.6-14.4 glyk=218) PLATELET COUNT (BEAKER) (test qlmm=098) 46 K/CU MM 150-450 MEAN PLATELET VOLUME (BEAKER) (test gcak=288) 9.1 fL 9.4-12.4 NUCLEATED RED BLOOD CELLS (BEAKER) (test 0 /100 WBC 0-0 qfyf=826) NEUTROPHILS RELATIVE PERCENT (BEAKER) (test 62 % bhgn=996) LYMPHOCYTES RELATIVE PERCENT (BEAKER) (test 13 % imel=834) MONOCYTES RELATIVE PERCENT (BEAKER) (test 21 % yplm=391) EOSINOPHILS RELATIVE PERCENT (BEAKER) (test 3 % cmoi=226) BASOPHILS RELATIVE PERCENT (BEAKER) (test 0 % bkmw=106) NEUTROPHILS ABSOLUTE COUNT (BEAKER) (test 2.49 K/ L 1.78-5.38 ooqp=731) LYMPHOCYTES ABSOLUTE COUNT (BEAKER) (test 0.53 K/ L 1.32-3.57 jsjj=537) MONOCYTES ABSOLUTE COUNT (BEAKER) (test gzwq=328) 0.86 K/ L 0.30-0.82 EOSINOPHILS ABSOLUTE COUNT (BEAKER) (test 0.10 K/ L 0.04-0.54 buoe=286) BASOPHILS ABSOLUTE COUNT (BEAKER) (test qxlb=603) 0.01 K/ L 0.01-0.08 IMMATURE GRANULOCYTES-RELATIVE PERCENT (BEAKER) 1 % 0-1 (test otmr=4846) TISSUE [id number] 14:55:00Surgical Pathology Report Case: [id number] Authorizing Provider: Karina Rain MD Collected: 05/08/20181999 Ordering Location: [address] Received: 05/11/2018 0837 Service Pathologist: Jesús Craig MD Specimen: Bone L3 VERTEBRAL BODYBONE BIOPSY:BONE AND BONE MARROW, NEGATIVE FOR MALIGNANCY.SEE DIAGNOSTIC COMMENT. Signing Pathologist Direct Phone Line: [phone] signed by Jesús Craig MD on 05/12/2018 at 2:55 PMHistological sections demonstrate portions of bone and bone marrow without evidence of amalignant process. Immunohistochemical studies performed on block A1 demonstrate polytypic plasma cells by kappa and lambda immunostains. Blasts are not increased by CD34. Immunostain for keratin is negative.There is no morphologic evidence of a malignant process in the sampled material. If there is astrong clinical concern for a malignant process, a repeat tissue based study may be warranted as thesampled material may not be fully b2b sales representative. This case was discussed with Dr. Andrea Mason, churn driller.[id number], [id number], [id number], [id number] fracture of body thoracic vertebralL3 vertebral body biopsyReceived in formalin labeled "L3 vertebral body" is a 0.3 cm in length becerra-white core of osseous tissue. The specimen is entirely submitted in cassette A1 for decalcification. DB/plPerformed.The following special studies were performed on this case and the interpretation is incorporated in the diagnostic report above:BLOCK A1- CD34 , KAPPA, LAMBDA, KERATINThe immunohistochemistry test was developed and its performance characteristics determined by [facility], Pathology Laboratory. It has not been cleared [...] qualified to perform high complexity clinical laboratory testing.RAD, CHEST, 1 VIEW, NON [id number] 13:56:00Reason for exam:->edemaShould this be performed at the bedside?->YesFINAL REPORT Chest one view compared to December 30 Discussion: Ill-defined bilateral airspace opacities are worse since the previous study although this may reflect a lesser inspiratory effort. No gross effusion or pneumothorax. Signed: Karina Pugh MDReport Verified Date/Time : 05/12/2018 13:56:44 Reading Location: [address] Consult Reading Room CALCIUM, [id number] 06:58:00 Test Item Value Reference Range Comments CALCIUM IONIZED (BEAKER) (test vbai=671) 1.11 mmol/L 1.12-1.27 PH, BLOOD (BEAKER) (test pzjk=3422) 7.36 [id number] 06:31:00 Test Item Value Reference Range Comments PHOSPHORUS (BEAKER) (test lfyi=370) 2.9 mg/dL 2.3-4.7 [id number] 06:31:00 Test Item Value Reference Range Comments MAGNESIUM (BEAKER) (test nnxc=472) 1.9 mg/dL 1.6-2.6 COMPREHENSIVE METABOLIC [id number] 06:31:00 Test Item Value Reference Range Comments TOTAL PROTEIN (BEAKER) 5.8 gm/dL 6.0-8.3 (test euvw=217) ALBUMIN (BEAKER) (test 4.0 g/dL 3.5-5.0 npab=3025) ALKALINE PHOSPHATASE 124 U/L 40-150 (BEAKER) (test jeeu=068) BILIRUBIN TOTAL (BEAKER) 4.3 mg/dL 0.2-1.2 (test ynko=110) SODIUM (BEAKER) (test 128 meq/L 136-145 smoe=932) POTASSIUM (BEAKER) (test 3.9 meq/L 3.5-5.1 euzn=022) CHLORIDE (BEAKER) (test 92 meq/L 98-107 wdon=997) CO2 (BEAKER) (test 26 meq/L 22-29 zzgm=003) BLOOD UREA NITROGEN 21 mg/dL 7-21 (BEAKER) (test ynkp=892) CREATININE (BEAKER) (test 1.54 mg/dL 0.57-1.25 wqjn=754) GLUCOSE RANDOM (BEAKER) 113 mg/dL 70-105 (test khyx=802) CALCIUM (BEAKER) (test 9.5 mg/dL 8.4-10.2 paft=865) AST (SGOT) (BEAKER) (test 16 U/L 5-34 sloh=673) ALT (SGPT) (BEAKER) (test 6 U/L 6-55 dbon=024) EGFR (BEAKER) (test 48 mL/min/1.73 sq m ESTIMATED GFR IS NOT dzzc=3393) ACCURATE CREATININE CLEARANCE IN PREDICTING GLOMERULAR FILTRATION RATE. ESTIMATED GFR IS NOT APPLICABLE FOR DIALYSIS PATIENTS. Specimen slightly ictericHEPATIC FUNCTION [id number] 06:31:00 Test Item Value Reference Range Comments TOTAL PROTEIN (BEAKER) (test vkmk=433) 5.8 gm/dL 6.0-8.3 ALBUMIN (BEAKER) (test oqtu=5923) 4.0 g/dL 3.5-5.0 BILIRUBIN TOTAL (BEAKER) (test reqk=296) 4.3 mg/dL 0.2-1.2 BILIRUBIN DIRECT (BEAKER) (test lwuk=712) 2.3 mg/dL 0.1-0.5 ALKALINE PHOSPHATASE (BEAKER) (test fisd=355) 124 U/L 40-150 AST (SGOT) (BEAKER) (test lhce=446) 16 U/L 5-34 ALT (SGPT) (BEAKER) (test gmmt=520) 6 U/L 6-55 Specimen slightly ictericPROTHROMBIN [id number] 06:16:00 Test Item Value Reference Range Comments PROTIME (BEAKER) (test utwh=091) 22.3 seconds 11.7-14.7 INR (BEAKER) (test haen=407) 2.0 <=5.9 RECOMMENDED COUMADIN/WARFARIN INR THERAPY RANGESSTANDARD DOSE: 2.0 - 3.0 Includes: PROPHYLAXIS forvenous thrombosis, systemic embolization; TREATMENT for venous thrombosis and/or pulmonary embolus.HIGH RISK: Target INR is 2.5-3.5 for patients with mechanical heart valves.CBC W/PLT COUNT & AUTO [id number] 06:00:00 Test Item Value Reference Range Comments WHITE BLOOD CELL COUNT (BEAKER) (test vstr=622) 4.3 K/ L 3.5-10.5 RED BLOOD CELL COUNT (BEAKER) (test asrk=266) 2.68 M/ L 4.63-6.08 HEMOGLOBIN (BEAKER) (test snat=140) 8.3 GM/DL 13.7-17.5 HEMATOCRIT (BEAKER) (test yrul=057) 25.0 % 40.1-51.0 MEAN CORPUSCULAR VOLUME (BEAKER) (test uzih=552) 93.3 fL 79.0-92.2 MEAN CORPUSCULAR HEMOGLOBIN (BEAKER) (test 31.0 pg 25.7-32.2 ikds=406) MEAN CORPUSCULAR HEMOGLOBIN CONC (BEAKER) (test 33.2 GM/DL 32.3-36.5 vvzx=528) RED CELL DISTRIBUTION WIDTH (BEAKER) (test 17.4 % 11.6-14.4 gnbq=344) PLATELET COUNT (BEAKER) (test vwez=688) 57 K/CU MM 150-450 MEAN PLATELET VOLUME (BEAKER) (test hzfd=378) 9.3 fL 9.4-12.4 NUCLEATED RED BLOOD CELLS (BEAKER) (test 0 /100 WBC 0-0 zkdb=508) NEUTROPHILS RELATIVE PERCENT (BEAKER) (test 61 % lczk=122) LYMPHOCYTES RELATIVE PERCENT (BEAKER) (test 14 % wrve=275) MONOCYTES RELATIVE PERCENT (BEAKER) (test 17 % frqr=877) EOSINOPHILS RELATIVE PERCENT (BEAKER) (test 7 % ztfa=731) BASOPHILS RELATIVE PERCENT (BEAKER) (test 1 % ebpg=049) NEUTROPHILS ABSOLUTE COUNT (BEAKER) (test 2.62 K/ L 1.78-5.38 shkj=839) LYMPHOCYTES ABSOLUTE COUNT (BEAKER) (test 0.59 K/ L 1.32-3.57 mpkl=829) MONOCYTES ABSOLUTE COUNT (BEAKER) (test wlpv=835) 0.73 K/ L 0.30-0.82 EOSINOPHILS ABSOLUTE COUNT (BEAKER) (test 0.29 K/ L 0.04-0.54 xnvf=733) BASOPHILS ABSOLUTE COUNT (BEAKER) (test irrc=496) 0.02 K/ L 0.01-0.08 IMMATURE GRANULOCYTES-RELATIVE PERCENT (BEAKER) 1 % 0-1 (test cpox=8802) BLOOD [id number] 00:00:00 Test Item Value Reference Range Comments CULTURE (BEAKER) (test btlm=7862) No growth in 5 days BLOOD [id number] 00:00:00 Test Item Value Reference Range Comments CULTURE (BEAKER) (test umke=6193) No growth in 5 days OSMOLALITY, [id number] 18:16:00 Test Item Value Reference Range Comments OSMOLALITY URINE (BEAKER) (test bxfr=092) 312 mOsm/kg 40-1400 BODY FLUID CELL COUNT WITH [id number] 17:17:00 Test Item Value Reference Range Comments APPEARANCE FLUID (BEAKER) (test mswq=405) Clear Clear COLOR FLUID (BEAKER) (test gyxk=455) Yellow Colorless, Straw RBC FLUID (BEAKER) (test jtwb=785) 150 /cu mm <=1 ADJUSTED WBC FLUID (BEAKER) (test yhjc=1499) 72 /cu mm <=5 LINING CELLS (BEAKER) (test wtpc=4283) 2 /cu mm <=1 NEUTROPHILS FLUID (BEAKER) (test pbnl=9001) 3 % LYMPHS FLUID (BEAKER) (test ktde=048) 28 % MONO/MACROPHAGE FLUID (BEAKER) (test duvs=529) 68 % EOSINOPHILS FLUID (BEAKER) (test ulho=760) 1 % BASO FLUID (BEAKER) (test cqnm=015) 0 % CONTAINER BODY FLUID (BEAKER) (test wjdo=1597) EDTA Tube SODIUM, RANDOM [id number] 17:09:00 Test Item Value Reference Range Comments SODIUM URINE (BEAKER) (test nwyl=698) < meq/L Reference Range: No NormalsURINALYSIS W/ [id number] 17:08:00 Test Item Value Reference Range Comments COLOR (BEAKER) (test fxdp=251) Yellow CLARITY (BEAKER) (test xzzp=494) Clear SPECIFIC GRAVITY UA (BEAKER) (test jele=546) 1.012 1.001-1.035 PH UA (BEAKER) (test ynaz=483) 5.5 5.0-8.0 PROTEIN UA (BEAKER) (test wjnn=340) Negative Negative GLUCOSE UA (BEAKER) (test lpcr=918) Negative Negative KETONES UA (BEAKER) (test jeqr=466) Negative Negative BILIRUBIN UA (BEAKER) (test glkl=815) Negative Negative BLOOD UA (BEAKER) (test hnpb=373) Negative Negative NITRITE UA (BEAKER) (test ejfr=347) Negative Negative LEUKOCYTE ESTERASE UA (BEAKER) (test wmmk=984) Negative Negative UROBILINOGEN UA (BEAKER) (test bgyx=863) 2.0 mg/dL 0.2-1.0 RBC UA (BEAKER) (test opjy=414) 0 /HPF WBC UA (BEAKER) (test vypk=996) 1 /HPF MUCUS (BEAKER) (test fzjd=3212) Rare HYALINE CASTS (BEAKER) (test uaqn=211) 15 /LPF SOURCE(BEAKER) (test bypa=8510) CREATININE, RANDOM [id number] 17:05:00 Test Item Value Reference Range Comments CREATININE URINE (BEAKER) (test rluo=564) 116.1 mg/dL Reference Range: No NormalsPROTEIN, RANDOM [id number] 17:05:00 Test Item Value Reference Range Comments PROTEIN, URINE (BEAKER) (test visy=7535) 7 mg/dL 0-14 RAD, SPINE, THORACIC, 2 [id number] 13:53:00Reason for exam:->back pain, s/p kyphoplastyFINAL REPORT INDICATION:Mid back and low back pain. Recent kyphoplasty. COMPARISON: MR lumbar spine May 07, 2018 TECHNIQUE: Thoracic spine radiograph two views.Lumbar spine radiograph three views. FINDINGS / IMPRESSION:There is interval kyphoplasty with cement in the L2 , T12, and T11 vertebral bodies. No new compression fracture is demonstrated. Normal thoracic kyphosis and lumbar lordosis is maintained. There is no spondylolisthesis. Diffuse osteopenia noted. Intervertebral disc space is relatively maintained. Signed: Aristeo Xiong Verified Date/Time: 13:53:06 Reading Location: [facility] Mammo Reading Room RAD, SPINE, LUMBAR, 2 OR 3 [id number] 13:53:00Reason for exam:->back pain, s/p kyphoplastyFINAL REPORT INDICATION:Mid back and low back pain. Recent kyphoplasty. COMPARISON: MR lumbar spine May 07, 2018 TECHNIQUE: Thoracic spine radiograph two views.Lumbar spine radiograph three views. FINDINGS / IMPRESSION:There is interval kyphoplasty with cement in the L2, T12, and T11 vertebral bodies. No new compression fracture is demonstrated. Normal thoracic kyphosis and lumbar lordosis is maintained. There is no spondylolisthesis. Diffuse osteopenia noted. Intervertebral disc space is relatively maintained. Signed: Aristeo XiongOnepager Verified Date/Time: 13:53:06 Reading Location: [facility] Mammo Reading Room U/S, [id number] 12:52:00Limit to 4L due to AKIReason for exam:-> ascitesShould this be performed at the bedside?->NoFINAL REPORT Ultrasound guided paracentesis, 05/11/2018. Clinical History: Ascites. Sedation: None. Practice Office Associate: Elle. Marine Operations Coordinator: None. Estimated Blood Loss: < 1 cc. Specimen: 4000 cc of clear yellow fluid, samples sent to laboratory. Technique: Informed consent was obtained. The risks of pain, bleeding, infection, bowel perforation, injury to adjacent structures, and adverse medication reactions were discussed with the patient. After informed consent was obtained, the patient's abdomen was scanned. The right lower quadrant of the abdomen was selected for paracentesis. After the largest fluid pocket area was marked, and the anterior abdominal wall was evaluated with color Doppler to exclude presence of blood vessels traversing the area, theskin was prepped and draped in the usual sterile manner. After local anesthesia was achieved with 1% lidocaine, a 5 [place] one-step catheter was advanced into the peritoneal cavity under ultrasound guidance. After completion of drainage, the catheter was removed. There was no evidence of complication. Patient Disposition: The patient was discharged from the ultrasound department after the paracentesis, in good condition. Impression: Successful ultrasound guided paracentesis. Signed: Perlita AlmeidaReport Verified Date/Time: 05/11/2018 12:52:57 Reading Location: [facility] B1 [id number] Ultrasound Reading Room MISCELLANEOUS LAB [id number] 10:45:00 Test Item Value Reference Range Comments SCAN RESULT (test apqh=[id number]) [id number] 07:31:00 Test Item Value Reference Range Comments PHOSPHORUS (BEAKER) (test zokl=958) 2.7 mg/dL 2.3-4.7 [id number] 07:31:00 Test Item Value Reference Range Comments MAGNESIUM (BEAKER) (test nmlq=073) 1.8 mg/dL 1.6-2.6 COMPREHENSIVE METABOLIC [id number] 07:31:00 Test Item Value Reference Range Comments TOTAL PROTEIN (BEAKER) 5.5 gm/dL 6.0-8.3 (test knhz=270) ALBUMIN (BEAKER) (test 3.5 g/dL 3.5-5.0 fwux=0462) ALKALINE PHOSPHATASE 118 U/L 40-150 (BEAKER) (test cvdb=448) BILIRUBIN TOTAL (BEAKER) 5.1 mg/dL 0.2-1.2 (test sfwi=414) SODIUM (BEAKER) (test 123 meq/L 136-145 dkbn=415) POTASSIUM (BEAKER) (test 4.1 meq/L 3.5-5.1 uqwf=874) CHLORIDE (BEAKER) (test 91 meq/L 98-107 wlxm=881) CO2 (BEAKER) (test 25 meq/L 22-29 heun=499) BLOOD UREA NITROGEN 21 mg/dL 7-21 (BEAKER) (test emtx=694) CREATININE (BEAKER) (test 1.59 mg/dL 0.57-1.25 ktug=400) GLUCOSE RANDOM (BEAKER) 121 mg/dL 70-105 (test ogmk=965) CALCIUM (BEAKER) (test 9.4 mg/dL 8.4-10.2 qbvs=826) AST (SGOT) (BEAKER) (test 17 U/L 5-34 ehuh=024) ALT (SGPT) (BEAKER) (test 8 U/L 6-55 ciqt=933) EGFR (BEAKER) (test 46 mL/min/1.73 sq m ESTIMATED GFR IS NOT ygqi=0025) ACCURATE CREATININE CLEARANCE IN PREDICTING GLOMERULAR FILTRATION RATE. ESTIMATED GFR IS NOT APPLICABLE FOR DIALYSIS PATIENTS. Specimen moderately ictericHEPATIC FUNCTION [id number] 07:31:00 Test Item Value Reference Range Comments TOTAL PROTEIN (BEAKER) (test luls=237) 5.5 gm/dL 6.0-8.3 ALBUMIN (BEAKER) (test ypog=7444) 3.5 g/dL 3.5-5.0 BILIRUBIN TOTAL (BEAKER) (test htvd=596) 5.1 mg/dL 0.2-1.2 BILIRUBIN DIRECT (BEAKER) (test xpzb=926) 2.3 mg/dL 0.1-0.5 ALKALINE PHOSPHATASE (BEAKER) (test qrnc=490) 118 U/L 40-150 AST (SGOT) (BEAKER) (test feew=985) 17 U/L 5-34 ALT (SGPT) (BEAKER) (test hdln=426) 8 U/L 6-55 Specimen moderately ictericPROTHROMBIN [id number] 07:17:00 Test Item Value Reference Range Comments PROTIME (BEAKER) (test pqco=514) 23.8 seconds 11.7-14.7 INR (BEAKER) (test wsga=985) 2.1 <=5.9 RECOMMENDED COUMADIN/WARFARIN INR THERAPY RANGESSTANDARD DOSE: 2.0 - 3.0 Includes: PROPHYLAXIS forvenous thrombosis, systemic embolization; TREATMENT for venous thrombosis and/or pulmonary embolus.HIGH RISK: Target INR is 2.5-3.5 for patients with mechanical heart valves.CBC W/PLT COUNT & AUTO [id number] 07:15:00 Test Item Value Reference Range Comments WHITE BLOOD CELL COUNT (BEAKER) (test imss=979) 4.4 K/ L 3.5-10.5 RED BLOOD CELL COUNT (BEAKER) (test uenc=785) 2.52 M/ L 4.63-6.08 HEMOGLOBIN (BEAKER) (test vujw=756) 7.9 GM/DL 13.7-17.5 HEMATOCRIT (BEAKER) (test mysx=719) 23.7 % 40.1-51.0 MEAN CORPUSCULAR VOLUME (BEAKER) (test islz=570) 94.0 fL 79.0-92.2 MEAN CORPUSCULAR HEMOGLOBIN (BEAKER) (test 31.3 pg 25.7-32.2 vfbo=938) MEAN CORPUSCULAR HEMOGLOBIN CONC (BEAKER) (test 33.3 GM/DL 32.3-36.5 xsng=518) RED CELL DISTRIBUTION WIDTH (BEAKER) (test 17.6 % 11.6-14.4 jgbe=928) PLATELET COUNT (BEAKER) (test lgia=145) 52 K/CU MM 150-450 MEAN PLATELET VOLUME (BEAKER) (test munq=713) 9.2 fL 9.4-12.4 NUCLEATED RED BLOOD CELLS (BEAKER) (test 0 /100 WBC 0-0 izot=682) NEUTROPHILS RELATIVE PERCENT (BEAKER) (test 62 % txao=012) LYMPHOCYTES RELATIVE PERCENT (BEAKER) (test 10 % qolh=350) MONOCYTES RELATIVE PERCENT (BEAKER) (test 19 % tvnb=900) EOSINOPHILS RELATIVE PERCENT (BEAKER) (test 8 % ocbj=664) BASOPHILS RELATIVE PERCENT (BEAKER) (test 0 % vpen=257) NEUTROPHILS ABSOLUTE COUNT (BEAKER) (test 2.72 K/ L 1.78-5.38 jhvm=426) LYMPHOCYTES ABSOLUTE COUNT (BEAKER) (test 0.42 K/ L 1.32-3.57 qdwm=541) MONOCYTES ABSOLUTE COUNT (BEAKER) (test lwgg=581) 0.84 K/ L 0.30-0.82 EOSINOPHILS ABSOLUTE COUNT (BEAKER) (test 0.34 K/ L 0.04-0.54 yhak=472) BASOPHILS ABSOLUTE COUNT (BEAKER) (test ckzd=205) 0.00 K/ L 0.01-0.08 IMMATURE GRANULOCYTES-RELATIVE PERCENT (BEAKER) 1 % 0-1 (test ccgs=7203) CALCIUM, [id number] 07:09:00 Test Item Value Reference Range Comments CALCIUM IONIZED (BEAKER) (test npxz=418) 1.09 mmol/L 1.12-1.27 PH, BLOOD (BEAKER) (test bqku=2833) 7.36 BASIC METABOLIC [id number] 17:49:00 Test Item Value Reference Range Comments SODIUM (BEAKER) (test 124 meq/L 136-145 vzve=087) POTASSIUM (BEAKER) (test 3.8 meq/L 3.5-5.1 gewg=829) CHLORIDE (BEAKER) (test 91 meq/L 98-107 fxho=658) CO2 (BEAKER) (test 22 meq/L 22-29 zbzk=854) BLOOD UREA NITROGEN 19 mg/dL 7-21 (BEAKER) (test cxdv=682) CREATININE (BEAKER) (test 1.49 mg/dL 0.57-1.25 szva=757) GLUCOSE RANDOM (BEAKER) 105 mg/dL 70-105 (test ejec=378) CALCIUM (BEAKER) (test 9.3 mg/dL 8.4-10.2 poiw=111) EGFR (BEAKER) (test 50 mL/min/1.73 sq m ESTIMATED GFR IS NOT byav=0847) ACCURATE CREATININE CLEARANCE IN PREDICTING GLOMERULAR FILTRATION RATE. ESTIMATED GFR IS NOT APPLICABLE FOR DIALYSIS PATIENTS. Call [id number] slightly ictericCALCIUM, [id number] 06:59:00 Test Item Value Reference Range Comments CALCIUM IONIZED (BEAKER) (test cnky=064) 1.00 mmol/L 1.12-1.27 PH, BLOOD (BEAKER) (test uzat=1831) 7.47 [id number] 05:42:00 Test Item Value Reference Range Comments PHOSPHORUS (BEAKER) (test tszn=803) 2.7 mg/dL 2.3-4.7 [id number] 05:42:00 Test Item Value Reference Range Comments MAGNESIUM (BEAKER) (test qcii=713) 1.7 mg/dL 1.6-2.6 HEPATIC FUNCTION [id number] 05:42:00 Test Item Value Reference Range Comments TOTAL PROTEIN (BEAKER) (test gwkd=171) 5.2 gm/dL 6.0-8.3 ALBUMIN (BEAKER) (test sqif=1767) 3.5 g/dL 3.5-5.0 BILIRUBIN TOTAL (BEAKER) (test vikj=876) 3.4 mg/dL 0.2-1.2 BILIRUBIN DIRECT (BEAKER) (test xkyc=388) 1.8 mg/dL 0.1-0.5 ALKALINE PHOSPHATASE (BEAKER) (test lecz=263) 106 U/L 40-150 AST (SGOT) (BEAKER) (test ibjr=106) 15 U/L 5-34 ALT (SGPT) (BEAKER) (test qkco=212) 7 U/L 6-55 Specimen slightly ictericPROTHROMBIN [id number] 05:22:00 Test Item Value Reference Range Comments PROTIME (BEAKER) (test rujn=549) 22.6 seconds 11.7-14.7 INR (BEAKER) (test nkav=838) 2.0 <=5.9 RECOMMENDED COUMADIN/WARFARIN INR THERAPY RANGESSTANDARD DOSE: 2.0 - 3.0 Includes: PROPHYLAXIS forvenous thrombosis, systemic embolization; TREATMENT for venous thrombosis and/or pulmonary embolus.HIGH RISK: Target INR is 2.5-3.5 for patients with mechanical heart valves.CBC W/PLT COUNT & AUTO [id number] 05:10:00 Test Item Value Reference Range Comments WHITE BLOOD CELL COUNT (BEAKER) (test hxyg=995) 5.6 K/ L 3.5-10.5 RED BLOOD CELL COUNT (BEAKER) (test kafy=231) 2.09 M/ L 4.63-6.08 HEMOGLOBIN (BEAKER) (test rela=284) 6.5 GM/DL 13.7-17.5 HEMATOCRIT (BEAKER) (test dtae=411) 19.8 % 40.1-51.0 MEAN CORPUSCULAR VOLUME (BEAKER) (test pejy=779) 94.7 fL 79.0-92.2 MEAN CORPUSCULAR HEMOGLOBIN (BEAKER) (test 31.1 pg 25.7-32.2 ftqv=008) MEAN CORPUSCULAR HEMOGLOBIN CONC (BEAKER) (test 32.8 GM/DL 32.3-36.5 sgtb=978) RED CELL DISTRIBUTION WIDTH (BEAKER) (test 17.3 % 11.6-14.4 eaex=964) PLATELET COUNT (BEAKER) (test tbkp=564) 57 K/CU MM 150-450 MEAN PLATELET VOLUME (BEAKER) (test qrsj=594) 8.9 fL 9.4-12.4 NUCLEATED RED BLOOD CELLS (BEAKER) (test 0 /100 WBC 0-0 uhle=471) NEUTROPHILS RELATIVE PERCENT (BEAKER) (test 71 % cbfi=389) LYMPHOCYTES RELATIVE PERCENT (BEAKER) (test 9 % hgpv=480) MONOCYTES RELATIVE PERCENT (BEAKER) (test 16 % oxvq=939) EOSINOPHILS RELATIVE PERCENT (BEAKER) (test 3 % lvsh=022) BASOPHILS RELATIVE PERCENT (BEAKER) (test 0 % xfpj=384) NEUTROPHILS ABSOLUTE COUNT (BEAKER) (test 3.93 K/ L 1.78-5.38 degf=861) LYMPHOCYTES ABSOLUTE COUNT (BEAKER) (test 0.52 K/ L 1.32-3.57 blam=462) MONOCYTES ABSOLUTE COUNT (BEAKER) (test wost=500) 0.87 K/ L 0.30-0.82 EOSINOPHILS ABSOLUTE COUNT (BEAKER) (test 0.19 K/ L 0.04-0.54 zxtf=218) BASOPHILS ABSOLUTE COUNT (BEAKER) (test uluy=083) 0.01 K/ L 0.01-0.08 IMMATURE GRANULOCYTES-RELATIVE PERCENT (BEAKER) 1 % 0-1 (test xeyv=9572) HEPATIC FUNCTION [id number] 11:05:00 Test Item Value Reference Range Comments TOTAL PROTEIN (BEAKER) (test rjcu=627) 5.7 gm/dL 6.0-8.3 ALBUMIN (BEAKER) (test xizf=1353) 3.9 g/dL 3.5-5.0 BILIRUBIN TOTAL (BEAKER) (test zgyx=315) 4.9 mg/dL 0.2-1.2 BILIRUBIN DIRECT (BEAKER) (test zkvt=276) 2.0 mg/dL 0.1-0.5 ALKALINE PHOSPHATASE (BEAKER) (test zegi=496) 98 U/L 40-150 AST (SGOT) (BEAKER) (test oekn=637) 19 U/L 5-34 ALT (SGPT) (BEAKER) (test yrcs=780) 8 U/L 6-55 Specimen moderately ictericBASIC METABOLIC [id number] 10:06:00 Test Item Value Reference Range Comments SODIUM (BEAKER) (test 132 meq/L 136-145 fffg=797) POTASSIUM (BEAKER) (test 5.0 meq/L 3.5-5.1 pris=816) CHLORIDE (BEAKER) (test 97 meq/L 98-107 wkxf=135) CO2 (BEAKER) (test 25 meq/L 22-29 qxyh=567) BLOOD UREA NITROGEN 17 mg/dL 7-21 (BEAKER) (test payk=742) CREATININE (BEAKER) (test 1.33 mg/dL 0.57-1.25 vpnq=926) GLUCOSE RANDOM (BEAKER) 181 mg/dL 70-105 (test vega=277) CALCIUM (BEAKER) (test 9.4 mg/dL 8.4-10.2 jzbv=664) EGFR (BEAKER) (test 56 mL/min/1.73 sq m ESTIMATED GFR IS NOT sbym=8745) ACCURATE CREATININE CLEARANCE IN PREDICTING GLOMERULAR FILTRATION RATE. ESTIMATED GFR IS NOT APPLICABLE FOR DIALYSIS PATIENTS. Specimen moderately ictericCBC W/PLT COUNT & AUTO [id number] 07: 45:00 Test Item Value Reference Range Comments WHITE BLOOD CELL COUNT (BEAKER) (test zhxo=903) 3.4 K/ L 3.5-10.5 RED BLOOD CELL COUNT (BEAKER) (test satj=846) 2.26 M/ L 4.63-6.08 HEMOGLOBIN (BEAKER) (test mggw=705) 7.0 GM/DL 13.7-17.5 HEMATOCRIT (BEAKER) (test lvru=690) 21.6 % 40.1-51.0 MEAN CORPUSCULAR VOLUME (BEAKER) (test usrt=156) 95.6 fL 79.0-92.2 MEAN CORPUSCULAR HEMOGLOBIN (BEAKER) (test 31.0 pg 25.7-32.2 sgza=856) MEAN CORPUSCULAR HEMOGLOBIN CONC (BEAKER) (test 32.4 GM/DL 32.3-36.5 ghvi=461) RED CELL DISTRIBUTION WIDTH (BEAKER) (test 17.3 % 11.6-14.4 enms=360) PLATELET COUNT (BEAKER) (test gwgv=518) 66 K/CU MM 150-450 MEAN PLATELET VOLUME (BEAKER) (test xlam=574) 9.8 fL 9.4-12.4 NUCLEATED RED BLOOD CELLS (BEAKER) (test 0 /100 WBC 0-0 omba=457) NEUTROPHILS RELATIVE PERCENT (BEAKER) (test 87 % pniv=552) LYMPHOCYTES RELATIVE PERCENT (BEAKER) (test 7 % lxyv=920) MONOCYTES RELATIVE PERCENT (BEAKER) (test 5 % iedt=491) EOSINOPHILS RELATIVE PERCENT (BEAKER) (test 0 % odbp=954) BASOPHILS RELATIVE PERCENT (BEAKER) (test 0 % quby=599) NEUTROPHILS ABSOLUTE COUNT (BEAKER) (test 2.94 K/ L 1.78-5.38 zhku=084) LYMPHOCYTES ABSOLUTE COUNT (BEAKER) (test 0.23 K/ L 1.32-3.57 pblz=392) MONOCYTES ABSOLUTE COUNT (BEAKER) (test zmho=920) 0.17 K/ L 0.30-0.82 EOSINOPHILS ABSOLUTE COUNT (BEAKER) (test 0.00 K/ L 0.04-0.54 ilta=687) BASOPHILS ABSOLUTE COUNT (BEAKER) (test sdwh=250) 0.00 K/ L 0.01-0.08 IMMATURE GRANULOCYTES-RELATIVE PERCENT (BEAKER) 1 % 0-1 (test wggb=3168) PROTHROMBIN [id number] 06:06:00 Test Item Value Reference Range Comments PROTIME (BEAKER) (test bqcn=920) 19.1 seconds 11.7-14.7 INR (BEAKER) (test dkes=814) 1.6 <=5.9 RECOMMENDED COUMADIN/WARFARIN INR THERAPY RANGESSTANDARD DOSE: 2.0 - 3.0 Includes: PROPHYLAXIS forvenous thrombosis, systemic embolization; TREATMENT for venous thrombosis and/or pulmonary embolus.HIGH RISK: Target INR is 2.5-3.5 for patients with mechanical heart valves.PT/[id number] 15:35:00 Test Item Value Reference Range Comments PROTIME (BEAKER) (test bbwa=095) 20.3 seconds 11.7-14.7 INR (BEAKER) (test zwwi=780) 1.7 <=5.9 PARTIAL THROMBOPLASTIN TIME (BEAKER) (test 46.2 seconds 22.5-36.0 zemk=065) RECOMMENDED COUMADIN/WARFARIN INR THERAPY RANGESSTANDARD DOSE: 2.0 - 3.0 Includes: PROPHYLAXIS forvenous thrombosis, systemic embolization; TREATMENT for venous thrombosis and/or pulmonary embolus.HIGH RISK: Target INR is 2.5-3.5 for patients with mechanical heart valves.30 minutes after administration of Jfwdtry84 minutes after administration of KcentraPROTHROMBIN TIME/[id number] 15:33:00 Test Item Value Reference Range Comments PROTIME (BEAKER) (test tqjl=880) 20.1 seconds 11.7-14.7 INR (BEAKER) (test lkls=223) 1.7 <=5.9 RECOMMENDED COUMADIN/WARFARIN INR THERAPY RANGESSTANDARD DOSE: 2.0 - 3.0 Includes: PROPHYLAXIS forvenous thrombosis, systemic embolization; TREATMENT for venous thrombosis and/or pulmonary embolus.HIGH RISK: Target INR is 2.5-3.5 for patients with mechanical heart valves.Please draw 30 mins after Kcentra doseBODY FLUID CULTURE + GRAM [id number] 11:29:00 Test Item Value Reference Range Comments CULTURE (BEAKER) (test vrhf=7793) No growth GRAM STAIN RESULT (BEAKER) (test <1+ WBCs slde=9020) GRAM STAIN RESULT (BEAKER) (test No organisms seen vugx=91125) CT, [id number] 10:30:00FINAL REPORT HISTORY : r/o intra abdominal bleed Technique: Multiple axial images of the abdomen and pelvis were performed without the administration of IV or oral contrast. Thisexam was performed according to our departmental dose [...] age indeterminate compression deformities/fractures of the T11 andL2 vertebral bodies. No free air is identified [...] the hernia. 5. New age indeterminate compression deformities/ fractures of the T11 and L2 vertebral bodies. Signed: Nick Landerosort Verified Date/Time: 05/08/2018 10:30:57 Reading Location: [facility] Diagnostic Imaging Reading Room - [place] [id number] 1120 CBC W/PLT COUNT & AUTO [id number] 07:27:00 Test Item Value Reference Range Comments WHITE BLOOD CELL COUNT (BEAKER) (test kqzh=883) 3.1 K/ L 3.5-10.5 RED BLOOD CELL COUNT (BEAKER) (test sbjg=394) 2.27 M/ L 4.63-6.08 HEMOGLOBIN (BEAKER) (test oagi=280) 7.1 GM/DL 13.7-17.5 HEMATOCRIT (BEAKER) (test xnbi=901) 21.4 % 40.1-51.0 MEAN CORPUSCULAR VOLUME (BEAKER) (test dzae=076) 94.3 fL 79.0-92.2 MEAN CORPUSCULAR HEMOGLOBIN (BEAKER) (test 31.3 pg 25.7-32.2 nhyc=033) MEAN CORPUSCULAR HEMOGLOBIN CONC (BEAKER) (test 33.2 GM/DL 32.3-36.5 mdzp=386) RED CELL DISTRIBUTION WIDTH (BEAKER) (test 17.5 % 11.6-14.4 qcdz=325) PLATELET COUNT (BEAKER) (test wilm=733) 43 K/CU MM 150-450 MEAN PLATELET VOLUME (BEAKER) (test quxv=838) 8.7 fL 9.4-12.4 NUCLEATED RED BLOOD CELLS (BEAKER) (test 0 /100 WBC 0-0 cjnq=311) NEUTROPHILS RELATIVE PERCENT (BEAKER) (test 60 % qwta=831) LYMPHOCYTES RELATIVE PERCENT (BEAKER) (test 16 % mlfg=153) MONOCYTES RELATIVE PERCENT (BEAKER) (test 17 % djwb=539) EOSINOPHILS RELATIVE PERCENT (BEAKER) (test 7 % vjws=391) BASOPHILS RELATIVE PERCENT (BEAKER) (test 0 % kksx=533) NEUTROPHILS ABSOLUTE COUNT (BEAKER) (test 1.85 K/ L 1.78-5.38 bivl=371) LYMPHOCYTES ABSOLUTE COUNT (BEAKER) (test 0.48 K/ L 1.32-3.57 sgrp=713) MONOCYTES ABSOLUTE COUNT (BEAKER) (test jbtg=197) 0.54 K/ L 0.30-0.82 EOSINOPHILS ABSOLUTE COUNT (BEAKER) (test 0.22 K/ L 0.04-0.54 rwue=577) BASOPHILS ABSOLUTE COUNT (BEAKER) (test odxm=261) 0.00 K/ L 0.01-0.08 IMMATURE GRANULOCYTES-RELATIVE PERCENT (BEAKER) 0 % 0-1 (test yreu=8929) CBC W/PLT COUNT & AUTO [id number] 07:26:00 Test Item Value Reference Range Comments WHITE BLOOD CELL COUNT (BEAKER) (test dnku=176) 2.9 K/ L 3.5-10.5 RED BLOOD CELL COUNT (BEAKER) (test orha=655) 2.25 M/ L 4.63-6.08 HEMOGLOBIN (BEAKER) (test ltvj=911) 7.1 GM/DL 13.7-17.5 HEMATOCRIT (BEAKER) (test vjzy=302) 21.4 % 40.1-51.0 MEAN CORPUSCULAR VOLUME (BEAKER) (test gblx=647) 95.1 fL 79.0-92.2 MEAN CORPUSCULAR HEMOGLOBIN (BEAKER) (test 31.6 pg 25.7-32.2 vokk=292) MEAN CORPUSCULAR HEMOGLOBIN CONC (BEAKER) (test 33.2 GM/DL 32.3-36.5 mncp=544) RED CELL DISTRIBUTION WIDTH (BEAKER) (test 17.5 % 11.6-14.4 rsmx=309) PLATELET COUNT (BEAKER) (test tyyz=140) 44 K/CU MM 150-450 MEAN PLATELET VOLUME (BEAKER) (test xfzm=063) 9.3 fL 9.4-12.4 NUCLEATED RED BLOOD CELLS (BEAKER) (test 0 /100 WBC 0-0 oyfb=795) NEUTROPHILS RELATIVE PERCENT (BEAKER) (test 59 % hqgb=174) LYMPHOCYTES RELATIVE PERCENT (BEAKER) (test 16 % jqpe=327) MONOCYTES RELATIVE PERCENT (BEAKER) (test 17 % vifw=819) EOSINOPHILS RELATIVE PERCENT (BEAKER) (test 7 % akkj=229) BASOPHILS RELATIVE PERCENT (BEAKER) (test 0 % kbzf=198) NEUTROPHILS ABSOLUTE COUNT (BEAKER) (test 1.72 K/ L 1.78-5.38 pqoi=299) LYMPHOCYTES ABSOLUTE COUNT (BEAKER) (test 0.46 K/ L 1.32-3.57 nwlq=549) MONOCYTES ABSOLUTE COUNT (BEAKER) (test dses=674) 0.51 K/ L 0.30-0.82 EOSINOPHILS ABSOLUTE COUNT (BEAKER) (test 0.21 K/ L 0.04-0.54 pcav=419) BASOPHILS ABSOLUTE COUNT (BEAKER) (test nvll=819) 0.01 K/ L 0.01-0.08 IMMATURE GRANULOCYTES-RELATIVE PERCENT (BEAKER) 1 % 0-1 (test nxwn=5407) BASIC METABOLIC [id number] 07:00:00 Test Item Value Reference Range Comments SODIUM (BEAKER) (test 130 meq/L 136-145 misl=002) POTASSIUM (BEAKER) (test 3.6 meq/L 3.5-5.1 ptob=202) CHLORIDE (BEAKER) (test 94 meq/L 98-107 azrf=773) CO2 (BEAKER) (test 27 meq/L 22-29 mkka=185) BLOOD UREA NITROGEN 19 mg/dL 7-21 (BEAKER) (test cnrw=942) CREATININE (BEAKER) (test 1.40 mg/dL 0.57-1.25 opmb=185) GLUCOSE RANDOM (BEAKER) 111 mg/dL 70-105 (test nwjj=356) CALCIUM (BEAKER) (test 9.2 mg/dL 8.4-10.2 zepb=151) EGFR (BEAKER) (test 53 mL/min/1.73 sq m ESTIMATED GFR IS NOT tedb=2036) ACCURATE CREATININE CLEARANCE IN PREDICTING GLOMERULAR FILTRATION RATE. ESTIMATED GFR IS NOT APPLICABLE FOR DIALYSIS PATIENTS. Specimen moderately ictericCOMPREHENSIVE METABOLIC [id number] 07:00:00 Test Item Value Reference Range Comments TOTAL PROTEIN (BEAKER) 5.7 gm/dL 6.0-8.3 (test irxp=768) ALBUMIN (BEAKER) (test 4.0 g/dL 3.5-5.0 spma=6008) ALKALINE PHOSPHATASE 92 U/L 40-150 (BEAKER) (test rric=631) BILIRUBIN TOTAL (BEAKER) 4.6 mg/dL 0.2-1.2 (test nvkp=444) SODIUM (BEAKER) (test 130 meq/L 136-145 rzcq=104) POTASSIUM (BEAKER) (test 3.6 meq/L 3.5-5.1 npgx=233) CHLORIDE (BEAKER) (test 94 meq/L 98-107 view=494) CO2 (BEAKER) (test 27 meq/L 22-29 zxrk=614) BLOOD UREA NITROGEN 19 mg/dL 7-21 (BEAKER) (test jnst=025) CREATININE (BEAKER) (test 1.40 mg/dL 0.57-1.25 yxhi=283) GLUCOSE RANDOM (BEAKER) 111 mg/dL 70-105 (test ubnu=475) CALCIUM (BEAKER) (test 9.2 mg/dL 8.4-10.2 fdqu=364) AST (SGOT) (BEAKER) (test 16 U/L 5-34 aofb=700) ALT (SGPT) (BEAKER) (test 6 U/L 6-55 pcon=033) EGFR (BEAKER) (test 53 mL/min/1.73 sq m ESTIMATED GFR IS NOT tedm=0940) ACCURATE CREATININE CLEARANCE IN PREDICTING GLOMERULAR FILTRATION RATE. ESTIMATED GFR IS NOT APPLICABLE FOR DIALYSIS PATIENTS. Specimen moderately ictericHEPATIC FUNCTION [id number] 07:00:00 Test Item Value Reference Range Comments TOTAL PROTEIN (BEAKER) (test oawo=600) 5.7 gm/dL 6.0-8.3 ALBUMIN (BEAKER) (test gvnn=0130) 4.0 g/dL 3.5-5.0 BILIRUBIN TOTAL (BEAKER) (test gtli=852) 4.6 mg/dL 0.2-1.2 BILIRUBIN DIRECT (BEAKER) (test bcnf=573) 1.8 mg/dL 0.1-0.5 ALKALINE PHOSPHATASE (BEAKER) (test nuvf=815) 92 U/L 40-150 AST (SGOT) (BEAKER) (test kmbq=725) 16 U/L 5-34 ALT (SGPT) (BEAKER) (test hqjq=411) 6 U/L 6-55 Specimen moderately [id number] 06:57:00 Test Item Value Reference Range Comments PARTIAL THROMBOPLASTIN TIME (BEAKER) (test 47.9 seconds 22.5-36.0 wuqw=437) PROTHROMBIN TIME/[id number] 06:55:00 Test Item Value Reference Range Comments PROTIME (BEAKER) (test yxcj=582) 23.7 seconds 11.7-14.7 INR (BEAKER) (test ucoi=909) 2.1 <=5.9 RECOMMENDED COUMADIN/WARFARIN INR THERAPY RANGESSTANDARD DOSE: 2.0 - 3.0 Includes: PROPHYLAXIS forvenous thrombosis, systemic embolization; TREATMENT for venous thrombosis and/or pulmonary embolus.HIGH RISK: Target INR is 2.5-3.5 for patients with mechanical heart valves.MR, SPINE, LUMBAR, WITHOUT [id number] 16:57:00FINAL REPORT MRI lumbar spine without contrast 05/07/2018 [...] posterior cortex of T12, without mass effect onthe distal spinal cord. There is no remarkable osseous retropulsion involving the T11 or L2 vertebral bodies. The remaining vertebral bodies are osteopenic, but intact. There is a nonexpansile 19 mm lesion in the L3 vertebral body, potentially reflecting metastasis. The conus medullaris terminates at L1. The distal spinal cord and terminal nerve roots are unremarkable. 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 [...] portal hypertension and large volume ascites. Signed: Chase Bain Verified Date/Time: 05/07/2018 16:57:00 Reading Location: [facility] Radiology Reading Room LACTIC ACID, VENOUS, WHOLE [id number] 14:13:00 Test Item Value Reference Range Comments LACTATE BLOOD VENOUS (2) (BEAKER) (test 2.6 mmol/L 0.5-2.2 phny=8660) Effective 02/28/2016: Units/Reference Range ChangeNew: 0.5-2.2 mmol/L Previous: 5 -20 mg/dLSpecimen slightly ictericHEMOGLOBIN AND [id number] 13:51:00 Test Item Value Reference Range Comments HEMOGLOBIN (BEAKER) (test eeki=496) 7.1 GM/DL 13.7-17.5 HEMATOCRIT (BEAKER) (test rifo=266) 21.7 % 40.1-51.0 U/S, RENAL, [id number] 09:48:00Reason for exam:->AKIFINAL REPORT Renal ultrasound Clinical History: Acute kidney injury Discussion: Sonographic evaluation of the kidneys is performed. The right kidney is normal in size measuring 11.4 x 5.2 x 7.2 cm with cortical thickness of 1.7 cm. Cortical echogenicity is within normal limits.The main renal artery and vein are patent. There is no evidence for solid renal mass, hydronephrosis, or shadowing calculi. The left kidney is normal in size measuring 10.7 x 5.4 x 5.3 cm with corticalthickness is 2.1 cm. Cortical echogenicity is within normal limits. The main renal artery and vein are patent. There is no evidence for solid renal mass, hydronephrosis, or shadowing calculi. The urinary bladder appears grossly unremarkable. Incidentally noted is a moderate volume of the ascites. The spleen appears mildly enlarged. Impression: Unremarkable sonographic appearance of the kidneys. Ascites. Signed: Reece Haque Verified Date/Time: 05/07/2018 09:48:55 Reading Location: [address] Ultrasound Reading Room Electronically signed by: REECE HAQUE MD on 09:[id number] 09:04:00 Test Item Value Reference Range Comments MAGNESIUM (BEAKER) (test etyq=117) 2.0 mg/dL 1.6-2.6 COMPREHENSIVE METABOLIC [id number] 09:04:00 Test Item Value Reference Range Comments TOTAL PROTEIN (BEAKER) 5.2 gm/dL 6.0-8.3 (test vsob=797) ALBUMIN (BEAKER) (test 3.5 g/dL 3.5-5.0 ovok=9353) ALKALINE PHOSPHATASE 96 U/L 40-150 (BEAKER) (test ckjf=594) BILIRUBIN TOTAL (BEAKER) 4.1 mg/dL 0.2-1.2 (test pzfe=426) SODIUM (BEAKER) (test 129 meq/L 136-145 ilbn=466) POTASSIUM (BEAKER) (test 3.8 meq/L 3.5-5.1 hmcx=378) CHLORIDE (BEAKER) (test 96 meq/L 98-107 pvch=181) CO2 (BEAKER) (test 25 meq/L 22-29 qglf=479) BLOOD UREA NITROGEN 22 mg/dL 7-21 (BEAKER) (test psln=081) CREATININE (BEAKER) (test 1.57 mg/dL 0.57-1.25 auey=492) GLUCOSE RANDOM (BEAKER) 122 mg/dL 70-105 (test edii=855) CALCIUM (BEAKER) (test 8.9 mg/dL 8.4-10.2 txwo=611) AST (SGOT) (BEAKER) (test 15 U/L 5-34 xizi=395) ALT (SGPT) (BEAKER) (test 7 U/L 6-55 ljgo=108) EGFR (BEAKER) (test 47 mL/min/1.73 sq m ESTIMATED GFR IS NOT bbpz=3499) ACCURATE CREATININE CLEARANCE IN PREDICTING GLOMERULAR FILTRATION RATE. ESTIMATED GFR IS NOT APPLICABLE FOR DIALYSIS PATIENTS. Specimen moderately ictericHEPATIC FUNCTION [id number] 09:04:00 Test Item Value Reference Range Comments TOTAL PROTEIN (BEAKER) (test iula=520) 5.2 gm/dL 6.0-8.3 ALBUMIN (BEAKER) (test yize=0686) 3.5 g/dL 3.5-5.0 BILIRUBIN TOTAL (BEAKER) (test cgfr=145) 4.1 mg/dL 0.2-1.2 BILIRUBIN DIRECT (BEAKER) (test mnzd=328) 1.8 mg/dL 0.1-0.5 ALKALINE PHOSPHATASE (BEAKER) (test yprc=436) 96 U/L 40-150 AST (SGOT) (BEAKER) (test ocfb=412) 15 U/L 5-34 ALT (SGPT) (BEAKER) (test thsf=942) 7 U/L 6-55 Specimen moderately ictericCBC W/PLT COUNT & AUTO [id number] 08: 26:00 Test Item Value Reference Range Comments WHITE BLOOD CELL COUNT (BEAKER) (test afyu=378) 2.7 K/ L 3.5-10.5 RED BLOOD CELL COUNT (BEAKER) (test apid=010) 2.13 M/ L 4.63-6.08 HEMOGLOBIN (BEAKER) (test gcqf=002) 6.8 GM/DL 13.7-17.5 HEMATOCRIT (BEAKER) (test slrk=847) 19.5 % 40.1-51.0 MEAN CORPUSCULAR VOLUME (BEAKER) (test vvjk=620) 91.5 fL 79.0-92.2 MEAN CORPUSCULAR HEMOGLOBIN (BEAKER) (test 31.9 pg 25.7-32.2 mgje=711) MEAN CORPUSCULAR HEMOGLOBIN CONC (BEAKER) (test 34.9 GM/DL 32.3-36.5 cdwx=542) RED CELL DISTRIBUTION WIDTH (BEAKER) (test 17.5 % 11.6-14.4 plhl=607) PLATELET COUNT (BEAKER) (test vhnj=724) 52 K/CU MM 150-450 MEAN PLATELET VOLUME (BEAKER) (test vskr=647) 9.1 fL 9.4-12.4 NUCLEATED RED BLOOD CELLS (BEAKER) (test 0 /100 WBC 0-0 laeb=902) NEUTROPHILS RELATIVE PERCENT (BEAKER) (test 62 % leoq=285) LYMPHOCYTES RELATIVE PERCENT (BEAKER) (test 16 % azai=622) MONOCYTES RELATIVE PERCENT (BEAKER) (test 17 % apoy=804) EOSINOPHILS RELATIVE PERCENT (BEAKER) (test 4 % lrbe=630) BASOPHILS RELATIVE PERCENT (BEAKER) (test 0 % xgsd=511) NEUTROPHILS ABSOLUTE COUNT (BEAKER) (test 1.66 K/ L 1.78-5.38 ijhg=792) LYMPHOCYTES ABSOLUTE COUNT (BEAKER) (test 0.43 K/ L 1.32-3.57 nowy=517) MONOCYTES ABSOLUTE COUNT (BEAKER) (test gwwn=981) 0.44 K/ L 0.30-0.82 EOSINOPHILS ABSOLUTE COUNT (BEAKER) (test 0.11 K/ L 0.04-0.54 imzn=138) BASOPHILS ABSOLUTE COUNT (BEAKER) (test tkgo=877) 0.00 K/ L 0.01-0.08 IMMATURE GRANULOCYTES-RELATIVE PERCENT (BEAKER) 1 % 0-1 (test qidi=3748) PROTHROMBIN TIME/[id number] 08:08:00 Test Item Value Reference Range Comments PROTIME (BEAKER) (test mpgj=385) 28.3 seconds 11.7-14.7 INR (BEAKER) (test vmxt=539) 2.7 <=5.9 RECOMMENDED COUMADIN/WARFARIN INR THERAPY RANGESSTANDARD DOSE: 2.0 - 3.0 Includes: PROPHYLAXIS forvenous thrombosis, systemic embolization; TREATMENT for venous thrombosis and/or pulmonary embolus.HIGH RISK: Target INR is 2.5-3.5 for patients with mechanical heart valves.[id number] 19:47:00 Test Item Value Reference Range Comments SODIUM (BEAKER) (test mxgi=737) 129 meq/L 136-145 POTASSIUM (BEAKER) (test rtpx=717) 4.6 meq/L 3.5-5.1 CHLORIDE (BEAKER) (test szqx=065) 96 meq/L 98-107 CO2 (BEAKER) (test fehd=696) 22 meq/L 22-29 Call [id number] AND [id number] 19:27:00 Test Item Value Reference Range Comments HEMOGLOBIN (BEAKER) (test sqgk=335) 7.1 GM/DL 13.7-17.5 HEMATOCRIT (BEAKER) (test pqfx=744) 21.4 % 40.1-51.0 Draw after transfusion of 1u RBC, notify hospitalist if Hgb remains less than 7.0HEMOGLOBIN AND [id number] 11:52:00 Test Item Value Reference Range Comments HEMOGLOBIN (BEAKER) (test xezm=569) 6.3 GM/DL 13.7-17.5 HEMATOCRIT (BEAKER) (test afhk=821) 18.9 % 40.1-51.0 Notify Hepatology if Hgb< 7.0YUNIOR Sandoval PA-CPager#: .BASIC METABOLIC [id number] 05:55:00 Test Item Value Reference Range Comments SODIUM (BEAKER) (test 129 meq/L 136-145 pgso=577) POTASSIUM (BEAKER) (test 5.2 meq/L 3.5-5.1 jplf=823) CHLORIDE (BEAKER) (test 97 meq/L 98-107 mrns=967) CO2 (BEAKER) (test 22 meq/L 22-29 ohgq=598) BLOOD UREA NITROGEN 28 mg/dL 7-21 (BEAKER) (test kbmk=408) CREATININE (BEAKER) (test 1.95 mg/dL 0.57-1.25 ubcm=320) GLUCOSE RANDOM (BEAKER) 102 mg/dL 70-105 (test bqbm=381) CALCIUM (BEAKER) (test 9.4 mg/dL 8.4-10.2 yldl=996) EGFR (BEAKER) (test 36 mL/min/1.73 sq m ESTIMATED GFR IS NOT zsbs=6207) ACCURATE CREATININE CLEARANCE IN PREDICTING GLOMERULAR FILTRATION RATE. ESTIMATED GFR IS NOT APPLICABLE FOR DIALYSIS PATIENTS. Specimen slightly ictericHEPATIC FUNCTION [id number] 05:55:00 Test Item Value Reference Range Comments TOTAL PROTEIN (BEAKER) (test vnjv=782) 5.6 gm/dL 6.0-8.3 ALBUMIN (BEAKER) (test lotm=1788) 3.4 g/dL 3.5-5.0 BILIRUBIN TOTAL (BEAKER) (test eqgi=276) 3.7 mg/dL 0.2-1.2 BILIRUBIN DIRECT (BEAKER) (test yqpl=823) 2.5 mg/dL 0.1-0.5 ALKALINE PHOSPHATASE (BEAKER) (test oxnx=746) 108 U/L 40-150 AST (SGOT) (BEAKER) (test dses=474) 17 U/L 5-34 ALT (SGPT) (BEAKER) (test iwbk=410) 7 U/L 6-55 Specimen slightly ictericCBC W/PLT COUNT & AUTO [id number] 05:42 :00 Test Item Value Reference Range Comments WHITE BLOOD CELL COUNT (BEAKER) (test gfgv=668) 3.7 K/ L 3.5-10.5 RED BLOOD CELL COUNT (BEAKER) (test jrvs=126) 2.10 M/ L 4.63-6.08 HEMOGLOBIN (BEAKER) (test ilge=972) 6.5 GM/DL 13.7-17.5 HEMATOCRIT (BEAKER) (test tmmv=698) 19.8 % 40.1-51.0 MEAN CORPUSCULAR VOLUME (BEAKER) (test tpgq=167) 94.3 fL 79.0-92.2 MEAN CORPUSCULAR HEMOGLOBIN (BEAKER) (test 31.0 pg 25.7-32.2 qcqy=729) MEAN CORPUSCULAR HEMOGLOBIN CONC (BEAKER) (test 32.8 GM/DL 32.3-36.5 qsxn=950) RED CELL DISTRIBUTION WIDTH (BEAKER) (test 16.4 % 11.6-14.4 knjo=288) PLATELET COUNT (BEAKER) (test upue=748) 54 K/CU MM 150-450 MEAN PLATELET VOLUME (BEAKER) (test zxnn=520) 9.8 fL 9.4-12.4 NUCLEATED RED BLOOD CELLS (BEAKER) (test 0 /100 WBC 0-0 gbce=392) NEUTROPHILS RELATIVE PERCENT (BEAKER) (test 62 % muqg=539) LYMPHOCYTES RELATIVE PERCENT (BEAKER) (test 15 % tefw=116) MONOCYTES RELATIVE PERCENT (BEAKER) (test 18 % yvzj=856) EOSINOPHILS RELATIVE PERCENT (BEAKER) (test 3 % szcv=814) BASOPHILS RELATIVE PERCENT (BEAKER) (test 0 % fpfv=823) NEUTROPHILS ABSOLUTE COUNT (BEAKER) (test 2.27 K/ L 1.78-5.38 bhlh=582) LYMPHOCYTES ABSOLUTE COUNT (BEAKER) (test 0.56 K/ L 1.32-3.57 wmwe=681) MONOCYTES ABSOLUTE COUNT (BEAKER) (test kodh=246) 0.66 K/ L 0.30-0.82 EOSINOPHILS ABSOLUTE COUNT (BEAKER) (test 0.12 K/ L 0.04-0.54 rumi=950) BASOPHILS ABSOLUTE COUNT (BEAKER) (test tmvz=333) 0.01 K/ L 0.01-0.08 IMMATURE GRANULOCYTES-RELATIVE PERCENT (BEAKER) 1 % 0-1 (test ayqn=3050) PROTHROMBIN TIME/[id number] 05:34:00 Test Item Value Reference Range Comments PROTIME (BEAKER) (test rhvd=175) 21.7 seconds 11.7-14.7 INR (BEAKER) (test ljim=831) 1.9 <=5.9 RECOMMENDED COUMADIN/WARFARIN INR THERAPY RANGESSTANDARD DOSE: 2.0 - 3.0 Includes: PROPHYLAXIS forvenous thrombosis, systemic embolization; TREATMENT for venous thrombosis and/or pulmonary embolus.HIGH RISK: Target INR is 2.5-3.5 for patients with mechanical heart valves.EOSINOPHIL SMEAR, [id number] 21: 51:00 Test Item Value Reference Range Comments EOSINOPHIL SMEAR, URINE (BEAKER) (test No EOS seen No EOS seen biqn=4984) BODY FLUID CELL COUNT WITH [id number] 21:42:00 Test Item Value Reference Range Comments APPEARANCE FLUID (BEAKER) (test cqdt=520) Hazy Clear COLOR FLUID (BEAKER) (test jewp=068) Yellow Colorless, Straw RBC FLUID (BEAKER) (test lyse=863) 70 /cu mm <=1 ADJUSTED WBC FLUID (BEAKER) (test jueh=1892) 44 /cu mm <=5 LINING CELLS (BEAKER) (test zvdu=4749) 8 /cu mm <=1 NEUTROPHILS FLUID (BEAKER) (test ghub=3067) 0 % LYMPHS FLUID (BEAKER) (test zklh=806) 11 % MONO/MACROPHAGE FLUID (BEAKER) (test dchm=377) 89 % EOSINOPHILS FLUID (BEAKER) (test pogr=709) 0 % BASO FLUID (BEAKER) (test pehj=560) 0 % CONTAINER BODY FLUID (BEAKER) (test dbdq=7735) EDTA Tube OSMOLALITY, [id number] 19:46:00 Test Item Value Reference Range Comments OSMOLALITY URINE (BEAKER) (test leyh=665) 355 mOsm/kg 40-1400 SODIUM, RANDOM [id number] 19:35:00 Test Item Value Reference Range Comments SODIUM URINE (BEAKER) (test uswn=845) < meq/L Reference Range: No NormalsPROTEIN, RANDOM [id number] 19:27:00 Test Item Value Reference Range Comments PROTEIN, URINE (BEAKER) (test ypoc=7472) 7 mg/dL 0-14 CREATININE, RANDOM [id number] 19:25:00 Test Item Value Reference Range Comments CREATININE URINE (BEAKER) (test wnnj=876) 150.3 mg/dL Reference Range: No [id number] 16:26:00 Test Item Value Reference Range Comments PREALBUMIN (BEAKER) (test uioa=288) 5 mg/dL 14-45 Listed for OLT - Nutrition Surveillance ([facility] Hepatology Transplant Team)U/S, [id number] 14:56:00Reason for exam:->ascites - limit to 5L fluid removal, pt has AKIShould this be performed at the bedside?->NoFINAL REPORT Paracentesis: Performing MD: Meggan Escoto M.D.Preoperative Diagnosis:AscitesPostoperative Diagnosis: AscitesAssistant: noneSpecimen: As requestedEstimated Blood Loss: less than 10 ccComplications: noneAnesthesia: local 2% subcutaneously at the insertion site Grafts or Implants : noneModality: sonographySedation: noneApproach: Right lower quadrant, anterior abdominalwall Technique: After informed written consent was obtained, the patient was prepped and draped in the usual sterile manner. Access was obtained using sonographic guidance. Images documented fluid.The images were saved to PACS. The right lower quadrant anterior abdominal wall was instrumented.A small bore catheter was advanced into the peritoneal space. The patient tolerated the procedure well. Impression:Successful, uncomplicated ultrasound guided paracentesis of the right lower quadrant peritoneal space. 5000 cc of serous fluid was removed. The paracentesis was limited to 5 L as ordered by referring physicians. Signed: Meggan Escoto MDReport Verified Date/Time: 05/05/2018 14:56:27 Reading Location: [facility] [id number] Ultrasound Reading Room [facility] METABOLIC [id number] 09:36:00 Test Item Value Reference Range Comments SODIUM (BEAKER) (test 125 meq/L 136-145 rfjq=086) POTASSIUM (BEAKER) (test 4.2 meq/L 3.5-5.1 fzox=525) CHLORIDE (BEAKER) (test 95 meq/L 98-107 pewi=152) CO2 (BEAKER) (test 23 meq/L 22-29 wgqi=638) BLOOD UREA NITROGEN 29 mg/dL 7-21 (BEAKER) (test tzmt=116) CREATININE (BEAKER) (test 2.01 mg/dL 0.57-1.25 wmmv=202) GLUCOSE RANDOM (BEAKER) 112 mg/dL 70-105 (test iogp=272) CALCIUM (BEAKER) (test 9.2 mg/dL 8.4-10.2 ehyq=937) EGFR (BEAKER) (test 35 mL/min/1.73 sq m ESTIMATED GFR IS NOT ijol=9336) ACCURATE CREATININE CLEARANCE IN PREDICTING GLOMERULAR FILTRATION RATE. ESTIMATED GFR IS NOT APPLICABLE FOR DIALYSIS PATIENTS. Specimen slightly ictericHEPATIC FUNCTION [id number] 09:36:00 Test Item Value Reference Range Comments TOTAL PROTEIN (BEAKER) (test lazv=219) 5.3 gm/dL 6.0-8.3 ALBUMIN (BEAKER) (test ordg=1693) 3.0 g/dL 3.5-5.0 BILIRUBIN TOTAL (BEAKER) (test dmmc=626) 4.1 mg/dL 0.2-1.2 BILIRUBIN DIRECT (BEAKER) (test jysg=478) 2.8 mg/dL 0.1-0.5 ALKALINE PHOSPHATASE (BEAKER) (test kbkx=166) 115 U/L 40-150 AST (SGOT) (BEAKER) (test lpgl=721) 20 U/L 5-34 ALT (SGPT) (BEAKER) (test ssnw=969) 9 U/L 6-55 Specimen slightly ictericCBC W/PLT COUNT & AUTO [id number] 09:28 :00 Test Item Value Reference Range Comments WHITE BLOOD CELL COUNT (BEAKER) (test zmak=236) 4.4 K/ L 3.5-10.5 RED BLOOD CELL COUNT (BEAKER) (test uksc=498) 2.20 M/ L 4.63-6.08 HEMOGLOBIN (BEAKER) (test zzhv=764) 7.1 GM/DL 13.7-17.5 HEMATOCRIT (BEAKER) (test cbid=407) 21.1 % 40.1-51.0 MEAN CORPUSCULAR VOLUME (BEAKER) (test yeco=195) 95.9 fL 79.0-92.2 MEAN CORPUSCULAR HEMOGLOBIN (BEAKER) (test 32.3 pg 25.7-32.2 usxc=770) MEAN CORPUSCULAR HEMOGLOBIN CONC (BEAKER) (test 33.6 GM/DL 32.3-36.5 vyfu=981) RED CELL DISTRIBUTION WIDTH (BEAKER) (test 16.7 % 11.6-14.4 vnmf=972) PLATELET COUNT (BEAKER) (test obmn=760) 60 K/CU MM 150-450 MEAN PLATELET VOLUME (BEAKER) (test vxdl=272) 9.7 fL 9.4-12.4 NUCLEATED RED BLOOD CELLS (BEAKER) (test 0 /100 WBC 0-0 xghl=760) NEUTROPHILS RELATIVE PERCENT (BEAKER) (test 71 % vmxp=498) LYMPHOCYTES RELATIVE PERCENT (BEAKER) (test 9 % yuqg=193) MONOCYTES RELATIVE PERCENT (BEAKER) (test 16 % dfrm=422) EOSINOPHILS RELATIVE PERCENT (BEAKER) (test 3 % hbvg=623) BASOPHILS RELATIVE PERCENT (BEAKER) (test 0 % htiq=959) NEUTROPHILS ABSOLUTE COUNT (BEAKER) (test 3.10 K/ L 1.78-5.38 ytle=798) LYMPHOCYTES ABSOLUTE COUNT (BEAKER) (test 0.39 K/ L 1.32-3.57 fadj=701) MONOCYTES ABSOLUTE COUNT (BEAKER) (test xpao=327) 0.69 K/ L 0.30-0.82 EOSINOPHILS ABSOLUTE COUNT (BEAKER) (test 0.12 K/ L 0.04-0.54 tvww=625) BASOPHILS ABSOLUTE COUNT (BEAKER) (test giec=807) 0.01 K/ L 0.01-0.08 IMMATURE GRANULOCYTES-RELATIVE PERCENT (BEAKER) 1 % 0-1 (test tgxa=9686) PROTHROMBIN TIME/[id number] 09:07:00 Test Item Value Reference Range Comments PROTIME (BEAKER) (test mznr=059) 21.6 seconds 11.7-14.7 INR (BEAKER) (test bvyu=699) 1.9 <=5.9 RECOMMENDED COUMADIN/WARFARIN INR THERAPY RANGESSTANDARD DOSE: 2.0 - 3.0 Includes: PROPHYLAXIS forvenous thrombosis, systemic embolization; TREATMENT for venous thrombosis and/or pulmonary embolus.HIGH RISK: Target INR is 2.5-3.5 for patients with mechanical heart valves.[id number] 13:59:00 Test Item Value Reference Range Comments POC-CREATININE (BEAKER) 2.0 mg/dL 0.6-1.[address] [facility] [address] [facility] (test xiit=1643) [facility] [address] POC-EGFR (BEAKER) (test 35 mL/min/1.73M2 uidm=9831) PET/CT, LIMITED AREA [id number] 08:25:00PET/ CT ChestReason for Exam:-> Elongated nodular [...] thighsAdditional imaging: NoneSerum blood glucose: 119CPT Code: 50470 FINDINGS:Head and Neck: There is no trisha [...] documented on prior scans. Signed: Ingrid Hung [facility] Verified Date/Time: 03/31/2018 08:25:09 POCT- GLUCOSE [id number] 14:54:00 Test Item Value Reference Range Comments POC-GLUCOSE METER (BEAKER) 119 mg/dL 70-[address] [facility] [address] (test ceeo=4867) [facility] [address] COMPREHENSIVE METABOLIC [id number] 16:49:00 Test Item Value Reference Range Comments TOTAL PROTEIN (BEAKER) 6.2 gm/dL 6.0-8.3 (test icop=026) ALBUMIN (BEAKER) (test 3.4 g/dL 3.5-5.0 nfbd=8629) ALKALINE PHOSPHATASE 139 U/L 40-150 (BEAKER) (test ebtq=696) BILIRUBIN TOTAL (BEAKER) 4.0 mg/dL 0.2-1.2 (test nyul=524) SODIUM (BEAKER) (test 129 meq/L 136-145 ijar=532) POTASSIUM (BEAKER) (test 4.3 meq/L 3.5-5.1 mpov=274) CHLORIDE (BEAKER) (test 96 meq/L 98-107 kjgw=786) CO2 (BEAKER) (test 22 meq/L 22-29 kbuz=913) BLOOD UREA NITROGEN 28 mg/dL 7-21 (BEAKER) (test trdu=461) CREATININE (BEAKER) (test 1.51 mg/dL 0.57-1.25 zvhg=688) GLUCOSE RANDOM (BEAKER) 89 mg/dL 70-105 (test vthz=509) CALCIUM (BEAKER) (test 9.5 mg/dL 8.4-10.2 hjed=893) AST (SGOT) (BEAKER) (test 26 U/L 5-34 yyrw=229) ALT (SGPT) (BEAKER) (test 11 U/L 6-55 vvrf=518) EGFR (BEAKER) (test 49 mL/min/1.73 sq m ESTIMATED GFR IS NOT jvtn=0776) ACCURATE CREATININE CLEARANCE IN PREDICTING GLOMERULAR FILTRATION RATE. ESTIMATED GFR IS NOT APPLICABLE FOR DIALYSIS PATIENTS. Specimen slightly ictericBILIRUBIN, [id number] 16:49:00 Test Item Value Reference Range Comments BILIRUBIN DIRECT (BEAKER) (test secy=599) 2.8 mg/dL 0.1-0.5 PROTHROMBIN [id number] 16:36:00 Test Item Value Reference Range Comments PROTIME (BEAKER) (test iajx=550) 19.0 seconds 11.7-14.7 INR (BEAKER) (test iimt=534) 1.6 <=5.9 RECOMMENDED COUMADIN/WARFARIN INR THERAPY RANGESSTANDARD DOSE: 2.0 - 3.0 Includes: PROPHYLAXIS forvenous thrombosis, systemic embolization; TREATMENT for venous thrombosis and/or pulmonary embolus.HIGH RISK: Target INR is 2.5-3.5 for patients with mechanical heart valves.CBC W/PLT COUNT & AUTO [id number] 16:27:00 Test Item Value Reference Range Comments WHITE BLOOD CELL COUNT (BEAKER) (test kagk=851) 6.0 K/ L 3.5-10.5 RED BLOOD CELL COUNT (BEAKER) (test fvzu=537) 2.74 M/ L 4.63-6.08 HEMOGLOBIN (BEAKER) (test dqep=118) 9.3 GM/DL 13.7-17.5 HEMATOCRIT (BEAKER) (test adxt=630) 27.6 % 40.1-51.0 MEAN CORPUSCULAR VOLUME (BEAKER) (test rhyr=124) 100.7 fL 79.0-92.2 MEAN CORPUSCULAR HEMOGLOBIN (BEAKER) (test 33.9 pg 25.7-32.2 lvgj=229) MEAN CORPUSCULAR HEMOGLOBIN CONC (BEAKER) (test 33.7 GM/DL 32.3-36.5 dipv=136) RED CELL DISTRIBUTION WIDTH (BEAKER) (test 14.9 % 11.6-14.4 dbdk=252) PLATELET COUNT (BEAKER) (test lsjz=384) 96 K/CU MM 150-450 MEAN PLATELET VOLUME (BEAKER) (test zwit=451) 9.4 fL 9.4-12.4 NUCLEATED RED BLOOD CELLS (BEAKER) (test 0 /100 WBC 0-0 tcfx=468) NEUTROPHILS RELATIVE PERCENT (BEAKER) (test 64 % izku=888) LYMPHOCYTES RELATIVE PERCENT (BEAKER) (test 11 % ygiz=746) MONOCYTES RELATIVE PERCENT (BEAKER) (test 16 % ckqu=531) EOSINOPHILS RELATIVE PERCENT (BEAKER) (test 7 % qdgj=247) BASOPHILS RELATIVE PERCENT (BEAKER) (test 1 % jiiy=628) NEUTROPHILS ABSOLUTE COUNT (BEAKER) (test 3.83 K/ L 1.78-5.38 fwnq=761) LYMPHOCYTES ABSOLUTE COUNT (BEAKER) (test 0.66 K/ L 1.32-3.57 coea=646) MONOCYTES ABSOLUTE COUNT (BEAKER) (test yhzu=390) 0.95 K/ L 0.30-0.82 EOSINOPHILS ABSOLUTE COUNT (BEAKER) (test 0.41 K/ L 0.04-0.54 zfpu=887) BASOPHILS ABSOLUTE COUNT (BEAKER) (test kmzz=569) 0.03 K/ L 0.01-0.08 IMMATURE GRANULOCYTES-RELATIVE PERCENT (BEAKER) 2 % 0-1 (test pyzv=7561) BASIC METABOLIC [id number] 08:26:00 Test Item Value Reference Range Comments SODIUM (BEAKER) (test 127 meq/L 136-145 dprr=620) POTASSIUM (BEAKER) (test 4.3 meq/L 3.5-5.1 iafu=971) CHLORIDE (BEAKER) (test 96 meq/L 98-107 mvnz=025) CO2 (BEAKER) (test 23 meq/L 22-29 wboh=058) BLOOD UREA NITROGEN 25 mg/dL 7-21 (BEAKER) (test updi=846) CREATININE (BEAKER) (test 1.46 mg/dL 0.57-1.25 qktf=252) GLUCOSE RANDOM (BEAKER) 130 mg/dL 70-105 (test mols=517) CALCIUM (BEAKER) (test 9.1 mg/dL 8.4-10.2 xhwh=955) EGFR (BEAKER) (test 51 mL/min/1.73 sq m ESTIMATED GFR IS NOT adfm=[id number]) ACCURATE CREATININE CLEARANCE IN PREDICTING GLOMERULAR FILTRATION RATE. ESTIMATED GFR IS NOT APPLICABLE FOR DIALYSIS PATIENTS. Specimen slightly ictericCBC (HEMOGRAM ONLY)2018-02-23 08:06:00 Test Item Value Reference Range Comments WHITE BLOOD CELL COUNT (BEAKER) (test dtzv=501) 5.4 K/ L 3.5-10.5 RED BLOOD CELL COUNT (BEAKER) (test rwaw=741) 2.64 M/ L 4.63-6.08 HEMOGLOBIN (BEAKER) (test jlwj=395) 8.8 GM/DL 13.7-17.5 HEMATOCRIT (BEAKER) (test jddc=921) 26.2 % 40.1-51.0 MEAN CORPUSCULAR VOLUME (BEAKER) (test iksp=932) 99.2 fL 79.0-92.2 MEAN CORPUSCULAR HEMOGLOBIN (BEAKER) (test 33.3 pg 25.7-32.2 vawo=594) MEAN CORPUSCULAR HEMOGLOBIN CONC (BEAKER) (test 33.6 GM/DL 32.3-36.5 ttyu=266) RED CELL DISTRIBUTION WIDTH (BEAKER) (test 16.2 % 11.6-14.4 znhb=982) PLATELET COUNT (BEAKER) (test rvlg=364) 100 K/CU MM 150-450 MEAN PLATELET VOLUME (BEAKER) (test ycnl=719) 8.7 fL 9.4-12.4 NUCLEATED RED BLOOD CELLS (BEAKER) (test 0 /100 WBC 0-0 jpko=309) COMPREHENSIVE METABOLIC [id number] 15:06:00 Test Item Value Reference Range Comments TOTAL PROTEIN (BEAKER) 6.5 gm/dL 6.0-8.3 (test tdes=076) ALBUMIN (BEAKER) (test 3.7 g/dL 3.5-5.0 rthf=8598) ALKALINE PHOSPHATASE 135 U/L 40-150 (BEAKER) (test yqbs=189) BILIRUBIN TOTAL (BEAKER) 4.5 mg/dL 0.2-1.2 (test xvzo=254) SODIUM (BEAKER) (test 131 meq/L 136-145 rgtr=253) POTASSIUM (BEAKER) (test 5.8 meq/L 3.5-5.1 wxel=532) CHLORIDE (BEAKER) (test 103 meq/L 98-107 wzse=849) CO2 (BEAKER) (test 24 meq/L 22-29 rohe=624) BLOOD UREA NITROGEN 27 mg/dL 7-21 (BEAKER) (test pluj=470) CREATININE (BEAKER) (test 1.17 mg/dL 0.57-1.25 mekw=613) GLUCOSE RANDOM (BEAKER) 111 mg/dL 70-105 (test pkbg=100) CALCIUM (BEAKER) (test 11.0 mg/dL 8.4-10.2 snit=949) AST (SGOT) (BEAKER) (test 28 U/L 5-34 vkik=342) ALT (SGPT) (BEAKER) (test 19 U/L 6-55 rrmw=150) EGFR (BEAKER) (test 65 mL/min/1.73 sq m ESTIMATED GFR IS NOT pqpj=5008) ACCURATE CREATININE CLEARANCE IN PREDICTING GLOMERULAR FILTRATION RATE. ESTIMATED GFR IS NOT APPLICABLE FOR DIALYSIS PATIENTS. Specimen slightly ictericBILIRUBIN, [id number] 15:06:00 Test Item Value Reference Range Comments BILIRUBIN DIRECT (BEAKER) (test cbse=738) 3.0 mg/dL 0.1-0.5 PROTHROMBIN [id number] 14:42:00 Test Item Value Reference Range Comments PROTIME (BEAKER) (test pjge=464) 19.1 seconds 11.7-14.7 INR (BEAKER) (test qcrs=392) 1.6 <=5.9 RECOMMENDED COUMADIN/WARFARIN INR THERAPY RANGESSTANDARD DOSE: 2.0 - 3.0 Includes: PROPHYLAXIS forvenous thrombosis, systemic embolization; TREATMENT for venous thrombosis and/or pulmonary embolus.HIGH RISK: Target INR is 2.5-3.5 for patients with mechanical heart valves.CBC W/PLT COUNT & AUTO [id number] 14:36:00 Test Item Value Reference Range Comments WHITE BLOOD CELL COUNT (BEAKER) (test ilkt=391) 5.5 K/ L 3.5-10.5 RED BLOOD CELL COUNT (BEAKER) (test zhjy=218) 2.84 M/ L 4.63-6.08 HEMOGLOBIN (BEAKER) (test jele=306) 9.5 GM/DL 13.7-17.5 HEMATOCRIT (BEAKER) (test dlnq=276) 28.8 % 40.1-51.0 MEAN CORPUSCULAR VOLUME (BEAKER) (test fucl=091) 101.4 fL 79.0-92.2 MEAN CORPUSCULAR HEMOGLOBIN (BEAKER) (test 33.5 pg 25.7-32.2 irzv=432) MEAN CORPUSCULAR HEMOGLOBIN CONC (BEAKER) (test 33.0 GM/DL 32.3-36.5 heab=426) RED CELL DISTRIBUTION WIDTH (BEAKER) (test 19.4 % 11.6-14.4 cpxp=900) PLATELET COUNT (BEAKER) (test prbe=810) 65 K/CU MM 150-450 MEAN PLATELET VOLUME (BEAKER) (test sgox=738) 8.8 fL 9.4-12.4 NUCLEATED RED BLOOD CELLS (BEAKER) (test 0 /100 WBC 0-0 khew=662) NEUTROPHILS RELATIVE PERCENT (BEAKER) (test 66 % udrv=513) LYMPHOCYTES RELATIVE PERCENT (BEAKER) (test 14 % yjmw=172) MONOCYTES RELATIVE PERCENT (BEAKER) (test 15 % avmu=411) EOSINOPHILS RELATIVE PERCENT (BEAKER) (test 4 % hylj=694) BASOPHILS RELATIVE PERCENT (BEAKER) (test 0 % ejxb=468) NEUTROPHILS ABSOLUTE COUNT (BEAKER) (test 3.58 K/ L 1.78-5.38 xznj=717) LYMPHOCYTES ABSOLUTE COUNT (BEAKER) (test 0.78 K/ L 1.32-3.57 oeec=818) MONOCYTES ABSOLUTE COUNT (BEAKER) (test inbd=443) 0.79 K/ L 0.30-0.82 EOSINOPHILS ABSOLUTE COUNT (BEAKER) (test 0.23 K/ L 0.04-0.54 vzuz=861) BASOPHILS ABSOLUTE COUNT (BEAKER) (test lpil=316) 0.02 K/ L 0.01-0.08 IMMATURE GRANULOCYTES-RELATIVE PERCENT (BEAKER) 1 % 0-1 (test ixqc=2430) RAD, KNEE, COMPLETE (4 VIEWS), [id number] 11:15:00Reason for exam:->FALL , PAINFINAL REPORT Bilateral [...] MDReport Verified Date/Time: 01/06/2018 11:15:08 Reading Location: [facility] Reading Room RAD, KNEE, COMPLETE (4 VIEWS), [id number] 11:15:00Reason for exam:->FALL, PAINFINAL REPORT Bilateral knee [...] MDReport Verified Date/Time: 01/06/2018 11:15:08 Reading Location: [facility] Reading Room CBC W/PLT COUNT & AUTO [id number] 10: 58:00 Test Item Value Reference Range Comments WHITE BLOOD CELL COUNT (BEAKER) (test nxky=876) 2.9 K/ L 3.5-10.5 RED BLOOD CELL COUNT (BEAKER) (test tcxy=004) 2.27 M/ L 4.63-6.08 HEMOGLOBIN (BEAKER) (test cimf=083) 7.1 GM/DL 13.7-17.5 HEMATOCRIT (BEAKER) (test okfw=930) 21.0 % 40.1-51.0 MEAN CORPUSCULAR VOLUME (BEAKER) (test zabn=989) 92.5 fL 79.0-92.2 MEAN CORPUSCULAR HEMOGLOBIN (BEAKER) (test 31.3 pg 25.7-32.2 otzj=578) MEAN CORPUSCULAR HEMOGLOBIN CONC (BEAKER) (test 33.8 GM/DL 32.3-36.5 sndt=831) RED CELL DISTRIBUTION WIDTH (BEAKER) (test 17.2 % 11.6-14.4 rgbz=368) PLATELET COUNT (BEAKER) (test bwhl=695) 42 K/CU MM 150-450 MEAN PLATELET VOLUME (BEAKER) (test fqzz=976) 10.1 fL 9.4-12.4 NUCLEATED RED BLOOD CELLS (BEAKER) (test 0 /100 WBC 0-0 qdpx=447) NEUTROPHILS RELATIVE PERCENT (BEAKER) (test 77 % xepv=206) LYMPHOCYTES RELATIVE PERCENT (BEAKER) (test 12 % hkaw=848) MONOCYTES RELATIVE PERCENT (BEAKER) (test 10 % hwsc=831) EOSINOPHILS RELATIVE PERCENT (BEAKER) (test 1 % hdoh=056) BASOPHILS RELATIVE PERCENT (BEAKER) (test 0 % fbuq=535) NEUTROPHILS ABSOLUTE COUNT (BEAKER) (test 2.21 K/ L 1.78-5.38 phzt=972) LYMPHOCYTES ABSOLUTE COUNT (BEAKER) (test 0.33 K/ L 1.32-3.57 kpzl=558) MONOCYTES ABSOLUTE COUNT (BEAKER) (test qkac=144) 0.30 K/ L 0.30-0.82 EOSINOPHILS ABSOLUTE COUNT (BEAKER) (test 0.03 K/ L 0.04-0.54 cbjs=243) BASOPHILS ABSOLUTE COUNT (BEAKER) (test xvcg=345) 0.00 K/ L 0.01-0.08 IMMATURE GRANULOCYTES-RELATIVE PERCENT (BEAKER) 0 % 0-1 (test hbwq=4442) [id number] 06:06:00 Test Item Value Reference Range Comments PHOSPHORUS (BEAKER) (test qbky=800) 3.6 mg/dL 2.3-4.7 [id number] 06:06:00 Test Item Value Reference Range Comments MAGNESIUM (BEAKER) (test sjjn=216) 2.0 mg/dL 1.6-2.6 BASIC METABOLIC [id number] 06:06:00 Test Item Value Reference Range Comments SODIUM (BEAKER) (test 130 meq/L 136-145 yjqk=364) POTASSIUM (BEAKER) (test 4.4 meq/L 3.5-5.1 nlcb=107) CHLORIDE (BEAKER) (test 100 meq/L 98-107 eosc=935) CO2 (BEAKER) (test 23 meq/L 22-29 awxt=774) BLOOD UREA NITROGEN 21 mg/dL 7-21 (BEAKER) (test lswn=342) CREATININE (BEAKER) (test 1.11 mg/dL 0.57-1.25 sqdr=648) GLUCOSE RANDOM (BEAKER) 120 mg/dL 70-105 (test twan=318) CALCIUM (BEAKER) (test 9.4 mg/dL 8.4-10.2 pfnj=922) EGFR (BEAKER) (test 70 mL/min/1.73 sq m ESTIMATED GFR IS NOT zcna=1002) ACCURATE CREATININE CLEARANCE IN PREDICTING GLOMERULAR FILTRATION RATE. ESTIMATED GFR IS NOT APPLICABLE FOR DIALYSIS PATIENTS. Specimen slightly ictericPROTHROMBIN [id number] 06:02:00 Test Item Value Reference Range Comments PROTIME (BEAKER) (test tzqa=955) 22.9 seconds 11.7-14.7 INR (BEAKER) (test spsl=998) 2.0 <=5.9 RECOMMENDED COUMADIN/WARFARIN INR THERAPY RANGESSTANDARD DOSE: 2.0 - 3.0 Includes: PROPHYLAXIS forvenous thrombosis, systemic embolization; TREATMENT for venous thrombosis and/or pulmonary embolus.HIGH RISK: Target INR is 2.5-3.5 for patients with mechanical heart valves.CALCIUM, [id number] 06:01:00 Test Item Value Reference Range Comments CALCIUM IONIZED (BEAKER) (test yvyz=418) 1.11 mmol/L 1.12-1.27 PH, BLOOD (BEAKER) (test uifs=4337) 7.53 CORTISOL,60 [id number] 23:20:00 Test Item Value Reference Range Comments CORTISOL BASELINE NETWORKED (BEAKER) (test 4.8 mcg/dL etcy=0047) CORTISOL 30 MINUTE NETWORKED (BEAKER) (test 9.2 mcg/dL uwrr=1453) CORTISOL, 60 MINUTE (BEAKER) (test hkrg=9529) 12.6 ug/dL ACTH STIMULATION TEST INTERPRETATION GUIDELINES(Synonyms: [...] study by Mindy et al (NEVAEH 2000,283( 8):8181-45), the ACTH Stimulation Test provides important prognostic [...] serum cortisollevel 60 minutes after cosyntropin administration.CORTISOL,30 [id number] 22:35:00 Test Item Value Reference Range Comments CORTISOL BASELINE NETWORKED (BEAKER) (test 4.8 mcg/dL wukb=7923) CORTISOL, 30 MINUTE (BEAKER) (test qyyn=8855) 9.2 ug/dL ACTH STIMULATION TEST INTERPRETATION GUIDELINES(Synonyms: [...] Draw serum cortisollevel 60 minutes after cosyntropin administration.CORTISOL,[id number] 22:35:00 Test Item Value Reference Range Comments CORTISOL, BASELINE (BEAKER) (test vnwk=7982) 4.8 ug/dL ACTH STIMULATION TEST INTERPRETATION GUIDELINES(Synonyms: [...] serum cortisollevel 60 minutes after cosyntropin administration.U/S, [id number] 17:54:00Reason for exam:->therapeuticFINAL REPORT History: Ascites. PROCEDURE: Following informed written consent,the patient's right lower quadrant was prepped and draped in the usual sterile manner. 2% lidocaine was given locally for anesthesia. No conscious sedation was administered. Using ultrasound guidance, a 5 [place] one-step catheter was advanced percutaneously into the [...] Verified Date/Time: 01/05/2018 17: 54:16 Reading Location: [facility] [id number] Ultrasound Reading Room [id number] 11:19:00 Test Item Value Reference Range Comments CORTISOL, TOTAL (BEAKER) (test nhmh=8586) 2.7 ug/dL 3.7-19.4 [id number] 10:21:00 Test Item Value Reference Range Comments PHOSPHORUS (BEAKER) (test xumk=011) 2.8 mg/dL 2.3-4.7 [id number] 10:21:00 Test Item Value Reference Range Comments MAGNESIUM (BEAKER) (test siul=634) 1.9 mg/dL 1.6-2.6 BASIC METABOLIC [id number] 10:21:00 Test Item Value Reference Range Comments SODIUM (BEAKER) (test 127 meq/L 136-145 glfk=348) POTASSIUM (BEAKER) (test 5.0 meq/L 3.5-5.1 apfy=360) CHLORIDE (BEAKER) (test 100 meq/L 98-107 wlog=067) CO2 (BEAKER) (test 22 meq/L 22-29 fzhs=035) BLOOD UREA NITROGEN 25 mg/dL 7-21 (BEAKER) (test xrog=632) CREATININE (BEAKER) (test 1.17 mg/dL 0.57-1.25 qaiv=969) GLUCOSE RANDOM (BEAKER) 84 mg/dL 70-105 (test rypb=354) CALCIUM (BEAKER) (test 8.7 mg/dL 8.4-10.2 izbe=673) EGFR (BEAKER) (test 65 mL/min/1.73 sq m ESTIMATED GFR IS NOT arrk=7044) ACCURATE CREATININE CLEARANCE IN PREDICTING GLOMERULAR FILTRATION RATE. ESTIMATED GFR IS NOT APPLICABLE FOR DIALYSIS PATIENTS. Specimen slightly ictericCBC W/PLT COUNT & AUTO [id number] 08:42 :00 Test Item Value Reference Range Comments WHITE BLOOD CELL COUNT (BEAKER) (test fxrg=971) 2.7 K/ L 3.5-10.5 RED BLOOD CELL COUNT (BEAKER) (test qcob=654) 2.33 M/ L 4.63-6.08 HEMOGLOBIN (BEAKER) (test lfzh=769) 7.3 GM/DL 13.7-17.5 HEMATOCRIT (BEAKER) (test apkw=191) 22.0 % 40.1-51.0 MEAN CORPUSCULAR VOLUME (BEAKER) (test acqr=911) 94.4 fL 79.0-92.2 MEAN CORPUSCULAR HEMOGLOBIN (BEAKER) (test 31.3 pg 25.7-32.2 kiit=205) MEAN CORPUSCULAR HEMOGLOBIN CONC (BEAKER) (test 33.2 GM/DL 32.3-36.5 dnlz=199) RED CELL DISTRIBUTION WIDTH (BEAKER) (test 17.2 % 11.6-14.4 mzqa=778) PLATELET COUNT (BEAKER) (test vgzb=184) 45 K/CU MM 150-450 MEAN PLATELET VOLUME (BEAKER) (test zqgy=499) 9.3 fL 9.4-12.4 NUCLEATED RED BLOOD CELLS (BEAKER) (test 0 /100 WBC 0-0 gnmq=832) NEUTROPHILS RELATIVE PERCENT (BEAKER) (test 60 % yoem=450) LYMPHOCYTES RELATIVE PERCENT (BEAKER) (test 17 % hgel=371) MONOCYTES RELATIVE PERCENT (BEAKER) (test 16 % ieqh=409) EOSINOPHILS RELATIVE PERCENT (BEAKER) (test 6 % vbcm=663) BASOPHILS RELATIVE PERCENT (BEAKER) (test 0 % ahzv=288) NEUTROPHILS ABSOLUTE COUNT (BEAKER) (test 1.63 K/ L 1.78-5.38 bjef=880) LYMPHOCYTES ABSOLUTE COUNT (BEAKER) (test 0.45 K/ L 1.32-3.57 rhsg=776) MONOCYTES ABSOLUTE COUNT (BEAKER) (test mtug=268) 0.44 K/ L 0.30-0.82 EOSINOPHILS ABSOLUTE COUNT (BEAKER) (test 0.16 K/ L 0.04-0.54 qjid=901) BASOPHILS ABSOLUTE COUNT (BEAKER) (test zlex=670) 0.01 K/ L 0.01-0.08 IMMATURE GRANULOCYTES-RELATIVE PERCENT (BEAKER) 1 % 0-1 (test shmb=3135) (MANUAL DIFFERENTIAL)2018-01-05 08:42:00 Test Item Value Reference Range Comments TOTAL COUNTED (BEAKER) (test qebz=5155) WBC MORPHOLOGY (BEAKER) (test xpwp=224) Normal PLT MORPHOLOGY (BEAKER) (test pwfa=471) Normal ANISOCYTOSIS (BEAKER) (test egnz=358) 1+ few CALCIUM, [id number] 08:10:00 Test Item Value Reference Range Comments CALCIUM IONIZED (BEAKER) (test mokj=123) 1.08 mmol/L 1.12-1.27 PH, BLOOD (BEAKER) (test edtv=1290) 7.44 PROTHROMBIN [id number] 07:12:00 Test Item Value Reference Range Comments PROTIME (BEAKER) (test aefn=617) 22.4 seconds 11.7-14.7 INR (BEAKER) (test klwc=943) 2.0 <=5.9 RECOMMENDED COUMADIN/WARFARIN INR THERAPY RANGESSTANDARD DOSE: 2.0 - 3.0 Includes: PROPHYLAXIS forvenous thrombosis, systemic embolization; TREATMENT for venous thrombosis and/or pulmonary embolus.HIGH RISK: Target INR is 2.5-3.5 for patients with mechanical heart valves.[id number] 17:54:00 Test Item Value Reference Range Comments SODIUM (BEAKER) (test etfk=144) 129 meq/L 136-145 POTASSIUM (BEAKER) (test dkkb=649) 5.5 meq/L 3.5-5.1 CHLORIDE (BEAKER) (test agae=894) 101 meq/L 98-107 CO2 (BEAKER) (test zdaq=884) 26 meq/L 22-29 Call [id number] with resultsCBC (HEMOGRAM ONLY)2018-01-04 07:16:00 Test Item Value Reference Range Comments WHITE BLOOD CELL COUNT (BEAKER) (test dkji=950) 2.9 K/ L 3.5-10.5 RED BLOOD CELL COUNT (BEAKER) (test yhli=254) 2.25 M/ L 4.63-6.08 HEMOGLOBIN (BEAKER) (test izkc=400) 7.3 GM/DL 13.7-17.5 HEMATOCRIT (BEAKER) (test rqxv=079) 21.3 % 40.1-51.0 MEAN CORPUSCULAR VOLUME (BEAKER) (test mvhv=474) 94.7 fL 79.0-92.2 MEAN CORPUSCULAR HEMOGLOBIN (BEAKER) (test 32.4 pg 25.7-32.2 iuys=465) MEAN CORPUSCULAR HEMOGLOBIN CONC (BEAKER) (test 34.3 GM/DL 32.3-36.5 unlf=652) RED CELL DISTRIBUTION WIDTH (BEAKER) (test 17.6 % 11.6-14.4 lnmx=475) PLATELET COUNT (BEAKER) (test ydlg=073) 59 K/CU MM 150-450 MEAN PLATELET VOLUME (BEAKER) (test gskw=774) 11.3 fL 9.4-12.4 NUCLEATED RED BLOOD CELLS (BEAKER) (test 0 /100 WBC 0-0 hxyk=804) COMPREHENSIVE METABOLIC [id number] 06:49:00 Test Item Value Reference Range Comments TOTAL PROTEIN (BEAKER) 5.3 gm/dL 6.0-8.3 Specimen slightly (test cfjj=686) hemolyzed ALBUMIN (BEAKER) (test 3.3 g/dL 3.5-5.0 Specimen slightly wfsy=1021) hemolyzed ALKALINE PHOSPHATASE 81 U/L 40-150 (BEAKER) (test vott=534) BILIRUBIN TOTAL (BEAKER) 2.4 mg/dL 0.2-1.2 Specimen slightly (test ztzr=227) hemolyzed SODIUM (BEAKER) (test 127 meq/L 136-145 rznv=784) POTASSIUM (BEAKER) (test 5.7 meq/L 3.5-5.1 Specimen slightly ncqj=197) hemolyzed CHLORIDE (BEAKER) (test 100 meq/L 98-107 nnpe=457) CO2 (BEAKER) (test 20 meq/L 22-29 ayur=933) BLOOD UREA NITROGEN 22 mg/dL 7-21 (BEAKER) (test mxli=746) CREATININE (BEAKER) (test 1.14 mg/dL 0.57-1.25 Specimen slightly djfl=227) hemolyzed GLUCOSE RANDOM (BEAKER) 96 mg/dL 70-105 (test cpoo=873) CALCIUM (BEAKER) (test 8.9 mg/dL 8.4-10.2 lodd=704) AST (SGOT) (BEAKER) (test 30 U/L 5-34 Specimen slightly qtvi=886) hemolyzed ALT (SGPT) (BEAKER) (test 8 U/L 6-55 Specimen slightly zxng=867) hemolyzed EGFR (BEAKER) (test 67 mL/min/1.73 sq m ESTIMATED GFR IS NOT iwkt=0448) ACCURATE CREATININE CLEARANCE IN PREDICTING GLOMERULAR FILTRATION RATE. ESTIMATED GFR IS NOT APPLICABLE FOR DIALYSIS PATIENTS. Specimen slightly ictericPROTHROMBIN [id number] 06:15:00 Test Item Value Reference Range Comments PROTIME (BEAKER) (test bszx=178) 22.7 seconds 11.7-14.7 INR (BEAKER) (test bgbb=518) 2.0 <=5.9 RECOMMENDED COUMADIN/WARFARIN INR THERAPY RANGESSTANDARD DOSE: 2.0 - 3.0 Includes: PROPHYLAXIS forvenous thrombosis, systemic embolization; TREATMENT for venous thrombosis and/or pulmonary embolus.HIGH RISK: Target INR is 2.5-3.5 for patients with mechanical heart valves.VITAMIN B12 AND [id number] 16:39 :00 Test Item Value Reference Range Comments VITAMIN B12 (BEAKER) (test cnze=321) 829 pg/mL 213-816 FOLATE (BEAKER) (test zqeb=381) 18.9 ng/mL >=7.0 CALCIUM, [id number] 07:14:00 Test Item Value Reference Range Comments CALCIUM IONIZED (BEAKER) (test hmaf=054) 1.08 mmol/L 1.12-1.27 PH, BLOOD (BEAKER) (test mslj=4019) 7.41 COMPREHENSIVE METABOLIC [id number] 07:00:00 Test Item Value Reference Range Comments TOTAL PROTEIN (BEAKER) 5.0 gm/dL 6.0-8.3 (test kygq=021) ALBUMIN (BEAKER) (test 3.1 g/dL 3.5-5.0 jrlh=6302) ALKALINE PHOSPHATASE 65 U/L 40-150 (BEAKER) (test vhje=643) BILIRUBIN TOTAL (BEAKER) 2.5 mg/dL 0.2-1.2 (test tooj=098) SODIUM (BEAKER) (test 127 meq/L 136-145 ircd=208) POTASSIUM (BEAKER) (test 4.7 meq/L 3.5-5.1 vciu=547) CHLORIDE (BEAKER) (test 99 meq/L 98-107 dmcq=211) CO2 (BEAKER) (test 23 meq/L 22-29 uygf=219) BLOOD UREA NITROGEN 21 mg/dL 7-21 (BEAKER) (test vxge=845) CREATININE (BEAKER) (test 1.13 mg/dL 0.57-1.25 ekxf=563) GLUCOSE RANDOM (BEAKER) 92 mg/dL 70-105 (test mwna=918) CALCIUM (BEAKER) (test 8.9 mg/dL 8.4-10.2 rkpk=118) AST (SGOT) (BEAKER) (test 18 U/L 5-34 yuzv=915) ALT (SGPT) (BEAKER) (test 8 U/L 6-55 vadp=093) EGFR (BEAKER) (test 68 mL/min/1.73 sq m ESTIMATED GFR IS NOT tmax=8921) ACCURATE CREATININE CLEARANCE IN PREDICTING GLOMERULAR FILTRATION RATE. ESTIMATED GFR IS NOT APPLICABLE FOR DIALYSIS PATIENTS. [id number] 06:37:00 Test Item Value Reference Range Comments PHOSPHORUS (BEAKER) (test ijve=788) 3.2 mg/dL 2.3-4.7 [id number] 06:37:00 Test Item Value Reference Range Comments MAGNESIUM (BEAKER) (test kxwp=970) 1.9 mg/dL 1.6-2.6 CBC (HEMOGRAM ONLY)2018-01-03 06:25:00 Test Item Value Reference Range Comments WHITE BLOOD CELL COUNT (BEAKER) (test xlae=646) 3.1 K/ L 3.5-10.5 RED BLOOD CELL COUNT (BEAKER) (test cntm=216) 2.31 M/ L 4.63-6.08 HEMOGLOBIN (BEAKER) (test lpmw=230) 7.4 GM/DL 13.7-17.5 HEMATOCRIT (BEAKER) (test xeqt=246) 21.6 % 40.1-51.0 MEAN CORPUSCULAR VOLUME (BEAKER) (test ezsw=417) 93.5 fL 79.0-92.2 MEAN CORPUSCULAR HEMOGLOBIN (BEAKER) (test 32.0 pg 25.7-32.2 gxpk=957) MEAN CORPUSCULAR HEMOGLOBIN CONC (BEAKER) (test 34.3 GM/DL 32.3-36.5 pppy=491) RED CELL DISTRIBUTION WIDTH (BEAKER) (test 17.4 % 11.6-14.4 ofqk=980) PLATELET COUNT (BEAKER) (test bbfj=235) 50 K/CU MM 150-450 MEAN PLATELET VOLUME (BEAKER) (test adgg=559) 10.5 fL 9.4-12.4 NUCLEATED RED BLOOD CELLS (BEAKER) (test 0 /100 WBC 0-0 ecia=543) PROTHROMBIN [id number] 06:09:00 Test Item Value Reference Range Comments PROTIME (BEAKER) (test idxi=867) 22.2 seconds 11.7-14.7 INR (BEAKER) (test ifgb=943) 2.0 <=5.9 RECOMMENDED COUMADIN/WARFARIN INR THERAPY RANGESSTANDARD DOSE: 2.0 - 3.0 Includes: PROPHYLAXIS forvenous thrombosis, systemic embolization; TREATMENT for venous thrombosis and/or pulmonary embolus.HIGH RISK: Target INR is 2.5-3.5 for patients with mechanical heart valves.[id number] 07:54:00 Test Item Value Reference Range Comments PHOSPHORUS (BEAKER) (test ilqf=535) 3.2 mg/dL 2.3-4.7 [id number] 07:54:00 Test Item Value Reference Range Comments MAGNESIUM (BEAKER) (test zovz=400) 1.4 mg/dL 1.6-2.6 COMPREHENSIVE METABOLIC [id number] 07:54:00 Test Item Value Reference Range Comments TOTAL PROTEIN (BEAKER) 5.3 gm/dL 6.0-8.3 (test aqfg=353) ALBUMIN (BEAKER) (test 3.4 g/dL 3.5-5.0 deyi=1988) ALKALINE PHOSPHATASE 55 U/L 40-150 (BEAKER) (test bzbu=879) BILIRUBIN TOTAL (BEAKER) 3.9 mg/dL 0.2-1.2 (test mwhh=086) SODIUM (BEAKER) (test 131 meq/L 136-145 fqqa=974) POTASSIUM (BEAKER) (test 4.3 meq/L 3.5-5.1 vmpe=638) CHLORIDE (BEAKER) (test 101 meq/L 98-107 azyq=078) CO2 (BEAKER) (test 23 meq/L 22-29 kwql=526) BLOOD UREA NITROGEN 19 mg/dL 7-21 (BEAKER) (test kxug=105) CREATININE (BEAKER) (test 0.97 mg/dL 0.57-1.25 tarh=485) GLUCOSE RANDOM (BEAKER) 80 mg/dL 70-105 (test iyzd=764) CALCIUM (BEAKER) (test 9.4 mg/dL 8.4-10.2 sfum=825) AST (SGOT) (BEAKER) (test 17 U/L 5-34 ijnx=148) ALT (SGPT) (BEAKER) (test 8 U/L 6-55 legv=944) EGFR (BEAKER) (test 81 mL/min/1.73 sq m ESTIMATED GFR IS NOT gmbd=1535) ACCURATE CREATININE CLEARANCE IN PREDICTING GLOMERULAR FILTRATION RATE. ESTIMATED GFR IS NOT APPLICABLE FOR DIALYSIS PATIENTS. Specimen slightly ictericCBC W/PLT COUNT & AUTO [id number] 07:14 :00 Test Item Value Reference Range Comments WHITE BLOOD CELL COUNT (BEAKER) (test myqd=580) 2.9 K/ L 3.5-10.5 RED BLOOD CELL COUNT (BEAKER) (test lqeh=311) 2.55 M/ L 4.63-6.08 HEMOGLOBIN (BEAKER) (test lojc=563) 8.1 GM/DL 13.7-17.5 HEMATOCRIT (BEAKER) (test hvtf=106) 23.7 % 40.1-51.0 MEAN CORPUSCULAR VOLUME (BEAKER) (test vxvs=449) 92.9 fL 79.0-92.2 MEAN CORPUSCULAR HEMOGLOBIN (BEAKER) (test 31.8 pg 25.7-32.2 sfpu=812) MEAN CORPUSCULAR HEMOGLOBIN CONC (BEAKER) (test 34.2 GM/DL 32.3-36.5 cybu=563) RED CELL DISTRIBUTION WIDTH (BEAKER) (test 17.5 % 11.6-14.4 bwzd=751) PLATELET COUNT (BEAKER) (test qtqi=509) 50 K/CU MM 150-450 MEAN PLATELET VOLUME (BEAKER) (test voac=536) 9.5 fL 9.4-12.4 NUCLEATED RED BLOOD CELLS (BEAKER) (test 0 /100 WBC 0-0 zdub=828) NEUTROPHILS RELATIVE PERCENT (BEAKER) (test 57 % bzlj=412) LYMPHOCYTES RELATIVE PERCENT (BEAKER) (test 17 % vlcd=132) MONOCYTES RELATIVE PERCENT (BEAKER) (test 18 % dylk=700) EOSINOPHILS RELATIVE PERCENT (BEAKER) (test 7 % qjbv=403) BASOPHILS RELATIVE PERCENT (BEAKER) (test 0 % fddj=928) NEUTROPHILS ABSOLUTE COUNT (BEAKER) (test 1.65 K/ L 1.78-5.38 vqhy=883) LYMPHOCYTES ABSOLUTE COUNT (BEAKER) (test 0.49 K/ L 1.32-3.57 coed=532) MONOCYTES ABSOLUTE COUNT (BEAKER) (test byda=960) 0.51 K/ L 0.30-0.82 EOSINOPHILS ABSOLUTE COUNT (BEAKER) (test 0.20 K/ L 0.04-0.54 jvqa=595) BASOPHILS ABSOLUTE COUNT (BEAKER) (test dcvt=778) 0.01 K/ L 0.01-0.08 IMMATURE GRANULOCYTES-RELATIVE PERCENT (BEAKER) 1 % 0-1 (test wlvc=9208) (MANUAL DIFFERENTIAL)2018-01-02 07:14:00 Test Item Value Reference Range Comments TOTAL COUNTED (BEAKER) (test tlxw=6146) CALCIUM, [id number] 07:04:00 Test Item Value Reference Range Comments CALCIUM IONIZED (BEAKER) (test hnna=383) 1.07 mmol/L 1.12-1.27 PH, BLOOD (BEAKER) (test tctm=3573) 7.49 PROTHROMBIN [id number] 06:42:00 Test Item Value Reference Range Comments PROTIME (BEAKER) (test eosy=932) 24.6 seconds 11.7-14.7 INR (BEAKER) (test enag=200) 2.2 <=5.9 RECOMMENDED COUMADIN/WARFARIN INR THERAPY RANGESSTANDARD DOSE: 2.0 - 3.0 Includes: PROPHYLAXIS forvenous thrombosis, systemic embolization; TREATMENT for venous thrombosis and/or pulmonary embolus.HIGH RISK: Target INR is 2.5-3.5 for patients with mechanical heart valves.CYTOMEGALOVIRUS ANTIBODY, [id number] 14:58:00 Test Item Value Reference Range Comments CYTOMEGALOVIRUS IGG ANTIBODY (BEAKER) (test Positive evsh=897) CYTOMEGALOVIRUS ANTIBODY, [id number] 14:58:00 Test Item Value Reference Range Comments CYTOMEGALOVIRUS IGM ANTIBODY (BEAKER) (test Negative mhjk=156) EBV-VCA ANTIBODY, [id number] 14:58:00 Test Item Value Reference Range Comments MARCELLUS-DAVIS VCA IGG (BEAKER) (test asvr=203) Positive EBV-VCA ANTIBODY, [id number] 14:58:00 Test Item Value Reference Range Comments MARCELLUS-DAVIS VCA IGM (BEAKER) (test eqbt=233) Negative BODY FLUID CELL COUNT WITH [id number] 14:27:00 Test Item Value Reference Range Comments APPEARANCE FLUID (BEAKER) (test mgfx=943) Slightly Hazy Clear COLOR FLUID (BEAKER) (test luzd=373) Yellow Colorless, Straw RBC FLUID (BEAKER) (test hlsb=482) 378 /cu mm <=1 ADJUSTED WBC FLUID (BEAKER) (test nhax=7181) 84 /cu mm <=5 LINING CELLS (BEAKER) (test ujlt=8630) 17 /cu mm <=1 NEUTROPHILS FLUID (BEAKER) (test uawp=3703) 1 % LYMPHS FLUID (BEAKER) (test hgvc=460) 14 % MONO/MACROPHAGE FLUID (BEAKER) (test 85 % xnho=554) EOSINOPHILS FLUID (BEAKER) (test qwgx=635) 0 % BASO FLUID (BEAKER) (test chzr=948) 0 % CONTAINER BODY FLUID (BEAKER) (test EDTA Tube nesh=8030) U/S, [id number] 11:17:00Reason for exam:->ascitesFINAL REPORT Ultrasound guided paracentesis, 01/01/2018. Clinical History:Ascites. Sedation: None. Practice Office Associate: Paul Butler MD Marine Operations Coordinator: None. Estimated Blood Loss: < 1 cc. [...] was achieved with 1% lidocaine, a 5 [place] one-step catheter was advanced into the peritoneal cavity under ultrasound guidance. After completion of drainage, the catheter was removed. There was no evidence ofcomplication. Patient Disposition: The patient was transferred to the inpatient unit from the ultrasound department after the paracentesis, in good condition. Impression:Successful ultrasound guided paracentesis. Signed: Paul Butler MDReport Verified Date/Time: 01/01/2018 11:17:26 Reading Location: [address] Ultrasound Reading Room CBC W/PLT COUNT & AUTO [id number] 08:55:00 Test Item Value Reference Range Comments WHITE BLOOD CELL COUNT (BEAKER) (test adgt=576) 2.6 K/ L 3.5-10.5 RED BLOOD CELL COUNT (BEAKER) (test bvyo=995) 2.17 M/ L 4.63-6.08 HEMOGLOBIN (BEAKER) (test eajl=754) 6.9 GM/DL 13.7-17.5 HEMATOCRIT (BEAKER) (test bgmf=041) 20.6 % 40.1-51.0 MEAN CORPUSCULAR VOLUME (BEAKER) (test mwai=891) 94.9 fL 79.0-92.2 MEAN CORPUSCULAR HEMOGLOBIN (BEAKER) (test 31.8 pg 25.7-32.2 keqo=621) MEAN CORPUSCULAR HEMOGLOBIN CONC (BEAKER) (test 33.5 GM/DL 32.3-36.5 wtbb=209) RED CELL DISTRIBUTION WIDTH (BEAKER) (test 17.0 % 11.6-14.4 eorb=892) PLATELET COUNT (BEAKER) (test dduv=871) 43 K/CU MM 150-450 MEAN PLATELET VOLUME (BEAKER) (test cvcr=071) 9.3 fL 9.4-12.4 NUCLEATED RED BLOOD CELLS (BEAKER) (test 0 /100 WBC 0-0 vmao=537) NEUTROPHILS RELATIVE PERCENT (BEAKER) (test 62 % laec=534) LYMPHOCYTES RELATIVE PERCENT (BEAKER) (test 13 % pyds=071) MONOCYTES RELATIVE PERCENT (BEAKER) (test 18 % upxm=613) EOSINOPHILS RELATIVE PERCENT (BEAKER) (test 6 % cefw=253) BASOPHILS RELATIVE PERCENT (BEAKER) (test 0 % lbjf=679) NEUTROPHILS ABSOLUTE COUNT (BEAKER) (test 1.58 K/ L 1.78-5.38 syus=698) LYMPHOCYTES ABSOLUTE COUNT (BEAKER) (test 0.33 K/ L 1.32-3.57 hhuu=002) MONOCYTES ABSOLUTE COUNT (BEAKER) (test zcta=958) 0.46 K/ L 0.30-0.82 EOSINOPHILS ABSOLUTE COUNT (BEAKER) (test 0.15 K/ L 0.04-0.54 xjam=073) BASOPHILS ABSOLUTE COUNT (BEAKER) (test hmwe=472) 0.01 K/ L 0.01-0.08 IMMATURE GRANULOCYTES-RELATIVE PERCENT (BEAKER) 1 % 0-1 (test indl=3018) (MANUAL DIFFERENTIAL)2018-01-01 08:55:00 Test Item Value Reference Range Comments TOTAL COUNTED (BEAKER) (test vcgw=2787) CALCIUM, [id number] 07:43:00 Test Item Value Reference Range Comments CALCIUM IONIZED (BEAKER) (test misr=888) 1.14 mmol/L 1.12-1.27 PH, BLOOD (BEAKER) (test dorg=8799) 7.52 [id number] 06:11:00 Test Item Value Reference Range Comments PHOSPHORUS (BEAKER) (test zndi=131) 2.5 mg/dL 2.3-4.7 [id number] 06:11:00 Test Item Value Reference Range Comments MAGNESIUM (BEAKER) (test ilcu=827) 1.7 mg/dL 1.6-2.6 COMPREHENSIVE METABOLIC [id number] 06:11:00 Test Item Value Reference Range Comments TOTAL PROTEIN (BEAKER) 5.6 gm/dL 6.0-8.3 (test dxvl=907) ALBUMIN (BEAKER) (test 3.6 g/dL 3.5-5.0 tvil=6814) ALKALINE PHOSPHATASE 68 U/L 40-150 (BEAKER) (test ytul=488) BILIRUBIN TOTAL (BEAKER) 2.7 mg/dL 0.2-1.2 (test neaw=578) SODIUM (BEAKER) (test 132 meq/L 136-145 zqkx=502) POTASSIUM (BEAKER) (test 4.9 meq/L 3.5-5.1 ntgj=165) CHLORIDE (BEAKER) (test 102 meq/L 98-107 smti=811) CO2 (BEAKER) (test 24 meq/L 22-29 rqzm=622) BLOOD UREA NITROGEN 20 mg/dL 7-21 (BEAKER) (test suwo=226) CREATININE (BEAKER) (test 1.17 mg/dL 0.57-1.25 arxp=369) GLUCOSE RANDOM (BEAKER) 92 mg/dL 70-105 (test izxo=776) CALCIUM (BEAKER) (test 9.7 mg/dL 8.4-10.2 phhd=813) AST (SGOT) (BEAKER) (test 16 U/L 5-34 nexh=766) ALT (SGPT) (BEAKER) (test 8 U/L 6-55 iqix=785) EGFR (BEAKER) (test 65 mL/min/1.73 sq m ESTIMATED GFR IS NOT viuv=5534) ACCURATE CREATININE CLEARANCE IN PREDICTING GLOMERULAR FILTRATION RATE. ESTIMATED GFR IS NOT APPLICABLE FOR DIALYSIS PATIENTS. Specimen slightly ictericPROTHROMBIN [id number] 06:00:00 Test Item Value Reference Range Comments PROTIME (TUNG) (test ansz=778) 24.0 seconds 11.7-14.7 INR (BEAKER) (test yovl=917) 2.2 <=5.9 RECOMMENDED COUMADIN/WARFARIN INR THERAPY RANGESSTANDARD DOSE: 2.0 - 3.0 Includes: PROPHYLAXIS forvenous thrombosis, systemic embolization; TREATMENT for venous thrombosis and/or pulmonary embolus.HIGH RISK: Target INR is 2.5-3.5 for patients with mechanical heart valves.CT, CHEST, WITHOUT [id number] 19:24:00FINAL REPORT HISTORY: Lung nodule, >=1cm COMPARISON [...] MDReport Verified Date/Time: 12/31/2017 19:24:12 Reading Location: [address] Consult Reading Room 07: 24 PMPERIPHERAL BLOOD SMEAR - HOLD [id number] 19:18:00 Test Item Value Reference Range Comments PERIPHERAL SMEAR SAVE (BEAKER) prepared and saved smear, (test zaxd=4906) 12/31/17 RETICULOCYTE [id number] 19:14:00 Test Item Value Reference Range Comments RETICULOCYTE COUNT PCT (BEAKER) (test bqfz=289) 3.5 % 0.5-1.8 LACTATE DEHYDROGENASE (LDH)2017-12-31 17:47:00 Test Item Value Reference Range Comments LACTATE DEHYDROGENASE (BEAKER) (test pqnc=609) 112 U/L 125-220 BLOOD GAS, [id number] 17:27:00 Test Item Value Reference Range Comments PH ARTERIAL (BEAKER) (test kkxb=562) 7.45 7.35-7.45 PCO2 ARTERIAL (BEAKER) (test bcwg=453) 36 mmHg 35-45 PO2 ARTERIAL (BEAKER) (test pivi=400) 76 mmHg 80-90 O2 SATURATION ARTERIAL (BEAKER) (test npqn=416) 96.1 % 96.0-97.0 HCO3 ARTERIAL (BEAKER) (test xwld=319) 24 mmol/L 21-29 BASE EXCESS ARTERIAL (BEAKER) (test ehmi=662) 0.2 mmol/L -2.0-3.0 PATIENT TEMPERATURE (BEAKER) (test pccd=8348) 36.4 C FIO2 (BEAKER) (test lfyc=4371) 21.0 % MYOCARD IMAGING, MULTI, PHARM, [id number] 15:12:00FINAL REPORT PROCEDURE: Rest/Stress MYOCARDIAL PERFUSION SPECT with regadenoson\\XA9\\ CPT CODE: 67393 INDICATION: Liver transplant evaluation HISTORY: Cardiac risk [...] [place] Verified Date/Time: 12/31/2017 15:12:03 Reading Location: [address] Reading Room BILIRUBIN, [id number] 14:10:00 Test Item Value Reference Range Comments BILIRUBIN DIRECT (BEAKER) (test zfup=621) 1.6 mg/dL 0.1-0.5 HEMOGLOBIN AND [id number] 13:22:00 Test Item Value Reference Range Comments HEMOGLOBIN (BEAKER) (test joel=827) 7.3 GM/DL 13.7-17.5 HEMATOCRIT (BEAKER) (test aigt=427) 21.9 % 40.1-51.0 CBC W/PLT COUNT & AUTO [id number] 11:06:00 Test Item Value Reference Range Comments WHITE BLOOD CELL COUNT (BEAKER) (test yceu=792) 2.2 K/ L 3.5-10.5 RED BLOOD CELL COUNT (BEAKER) (test zuan=171) 2.07 M/ L 4.63-6.08 HEMOGLOBIN (BEAKER) (test ipza=536) 6.8 GM/DL 13.7-17.5 HEMATOCRIT (BEAKER) (test qpie=636) 19.6 % 40.1-51.0 MEAN CORPUSCULAR VOLUME (BEAKER) (test nryw=877) 94.7 fL 79.0-92.2 MEAN CORPUSCULAR HEMOGLOBIN (BEAKER) (test 32.9 pg 25.7-32.2 lgvd=938) MEAN CORPUSCULAR HEMOGLOBIN CONC (BEAKER) (test 34.7 GM/DL 32.3-36.5 zymu=416) RED CELL DISTRIBUTION WIDTH (BEAKER) (test 16.9 % 11.6-14.4 eknn=256) PLATELET COUNT (BEAKER) (test grlo=702) 47 K/CU MM 150-450 MEAN PLATELET VOLUME (BEAKER) (test shdo=031) 9.7 fL 9.4-12.4 NUCLEATED RED BLOOD CELLS (BEAKER) (test 0 /100 WBC 0-0 ffve=263) NEUTROPHILS RELATIVE PERCENT (BEAKER) (test 54 % hitn=705) LYMPHOCYTES RELATIVE PERCENT (BEAKER) (test 17 % fhmf=492) MONOCYTES RELATIVE PERCENT (BEAKER) (test 21 % vlot=923) EOSINOPHILS RELATIVE PERCENT (BEAKER) (test 8 % wxhu=137) BASOPHILS RELATIVE PERCENT (BEAKER) (test 1 % txwj=198) NEUTROPHILS ABSOLUTE COUNT (BEAKER) (test 1.17 K/ L 1.78-5.38 yjjr=714) LYMPHOCYTES ABSOLUTE COUNT (BEAKER) (test 0.36 K/ L 1.32-3.57 fack=864) MONOCYTES ABSOLUTE COUNT (BEAKER) (test vsbz=492) 0.45 K/ L 0.30-0.82 EOSINOPHILS ABSOLUTE COUNT (BEAKER) (test 0.17 K/ L 0.04-0.54 dofa=200) BASOPHILS ABSOLUTE COUNT (BEAKER) (test mtlh=795) 0.01 K/ L 0.01-0.08 IMMATURE GRANULOCYTES-RELATIVE PERCENT (BEAKER) 1 % 0-1 (test gcci=9140) (MANUAL DIFFERENTIAL)2017-12-31 11:06:00 Test Item Value Reference Range Comments TOTAL COUNTED (BEAKER) (test irhx=1534) [id number] 08:37:00 Test Item Value Reference Range Comments PROTIME (BEAKER) (test mnut=250) 24.0 seconds 11.7-14.7 INR (BEAKER) (test cjdq=319) 2.2 <=5.9 PARTIAL THROMBOPLASTIN TIME (BEAKER) (test 55.2 seconds 22.5-36.0 iclg=773) RECOMMENDED COUMADIN/WARFARIN INR THERAPY RANGESSTANDARD DOSE: 2.0 - 3.0 Includes: PROPHYLAXIS forvenous thrombosis, systemic embolization; TREATMENT for venous thrombosis and/or pulmonary embolus.HIGH RISK: Target INR is 2.5-3.5 for patients with mechanical heart valves.COMPREHENSIVE METABOLIC [id number] 06:37:00 Test Item Value Reference Range Comments TOTAL PROTEIN (BEAKER) 5.7 gm/dL 6.0-8.3 (test tmey=147) ALBUMIN (BEAKER) (test 3.7 g/dL 3.5-5.0 oakd=5914) ALKALINE PHOSPHATASE 70 U/L 40-150 (BEAKER) (test yuzo=341) BILIRUBIN TOTAL (BEAKER) 2.6 mg/dL 0.2-1.2 (test zmfd=527) SODIUM (BEAKER) (test 130 meq/L 136-145 zzcj=559) POTASSIUM (BEAKER) (test 5.2 meq/L 3.5-5.1 egfs=378) CHLORIDE (BEAKER) (test 100 meq/L 98-107 sqij=778) CO2 (BEAKER) (test 25 meq/L 22-29 tkqx=658) BLOOD UREA NITROGEN 20 mg/dL 7-21 (BEAKER) (test inpb=447) CREATININE (BEAKER) (test 1.08 mg/dL 0.57-1.25 vzkg=775) GLUCOSE RANDOM (BEAKER) 91 mg/dL 70-105 (test qalk=047) CALCIUM (BEAKER) (test 9.6 mg/dL 8.4-10.2 bnzr=608) AST (SGOT) (BEAKER) (test 16 U/L 5-34 bobw=291) ALT (SGPT) (BEAKER) (test 6 U/L 6-55 gkav=128) EGFR (BEAKER) (test 72 mL/min/1.73 sq m ESTIMATED GFR IS NOT yykx=1010) ACCURATE CREATININE CLEARANCE IN PREDICTING GLOMERULAR FILTRATION RATE. ESTIMATED GFR IS NOT APPLICABLE FOR DIALYSIS PATIENTS. Specimen slightly [id number] 06:01:00 Test Item Value Reference Range Comments RPR SCREEN (BEAKER) (test rwga=426) Nonreactive Nonreactive CRYPTOCOCCAL [id number] 05:59:00 Test Item Value Reference Range Comments CRYPTOCOCCAL ANTIGEN, SERUM (BEAKER) (test Negative Negative, Interference tkow=5604) RAD, MANDIBLE, MIN 4 [id number] 01:37:00Reason for exam:->liver transplant evalShould this be [...] MDReport Verified Date/Time: 12/31/2017 01:37:57 Reading Location: [address] Reading Room Electronically signed by: SLICK BARCENAS M.D. on 04/2018 01:37 AMRAD, CHEST, 2 [id number] 23:32:00Reason for exam:-> liver transplant evalShould this [...] further evaluation if warranted. Signed: Slick Barcenas [facility] Verified Date/Time: 12/30/2017 23:32:31 Reading Location: [address] Reading Room HEMOGLOBIN [id number] 22:54:00 Test Item Value Reference Range Comments HEMOGLOBIN A1C (BEAKER) (test ljez=709) 4.1 % 4.3-6.1 HEPATITIS B SURFACE [id number] 16:31:00 Test Item Value Reference Range Comments HEPATITIS B SURFACE ANTIBODY (BEAKER) (test < mIU/mL <8.0 ubst=014) HEPATITIS B SURFACE [id number] 16:29:00 Test Item Value Reference Range Comments HEPATITIS B SURFACE ANTIGEN (2) (BEAKER) (test Nonreactive Nonreactive ebta=3996) HEPATITIS B CORE ANTIBODY, [id number] 16:29:00 Test Item Value Reference Range Comments HEPATITIS B CORE IGM ANTIBODY (BEAKER) (test Nonreactive Nonreactive ordr=149) HEPATITIS A ANTIBODY, [id number] 16:29:00 Test Item Value Reference Range Comments HEPATITIS A IGM ANTIBODY (BEAKER) (test Nonreactive Nonreactive deic=667) HEPATITIS B CORE ANTIBODY, [id number] 16:29:00 Test Item Value Reference Range Comments HEPATITIS B CORE TOTAL ANTIBODY (BEAKER) (test Nonreactive Nonreactive syom=273) [id number] 16:26:00 Test Item Value Reference Range Comments T4 TOTAL (BEAKER) (test zbld=696) 3.5 ug/dL 4.9-11.7 [id number] 16:26:00 Test Item Value Reference Range Comments T3 TOTAL (BEAKER) (test qiey=816) 42 ng/dL 48-159 [id number] 16:24:00 Test Item Value Reference Range Comments FERRITIN (BEAKER) (test iamf=141) 1460 ng/mL 5-275 VITAMIN D, 40-[id number] 16:24:00 Test Item Value Reference Range Comments VITAMIN D 25-OH (BEAKER) (test jgcx=3503) 6.9 ng/mL 6.6-49.9 Effective 08/06/2017: Reference Range ChangeNew: 6.6-49.9 ng/mL Previous: 13.0 -47.8 ng/mLRecommended Vitamin D Target Range: 30.0-40.0 ng/[id number] 16: 24:00 Test Item Value Reference Range Comments THYROID STIMULATING HORMONE (BEAKER) (test 1.55 uIU/mL 0.35-4.94 quqk=611) CARCINOEMBRYONIC ANTIGEN (CEA)2017-12-30 16:24:00 Test Item Value Reference Range Comments CARCINOEMBRYONIC ANTIGEN (BEAKER) (test yeee=723) 3.0 ng/mL 0.0-5.0 [id number] 16:23:00 Test Item Value Reference Range Comments PROSTATE SPECIFIC ANTIGEN (BEAKER) (test rhno=660) 0.1 ng/mL 0.0-4.0 HIV-1 ANTIGEN WITH HIV-1/2 [id number] 16:23:00 Test Item Value Reference Range Comments HIV-1 ANTIGEN WITH HIV 1\\T\\2 ANTIBODY (2) Nonreactive Nonreactive (BEAKER) (test ckhe=3006) HEPATITIS C [id number] 16:23:00 Test Item Value Reference Range Comments HEPATITIS C ANTIBODY (BEAKER) (test bpxp=433) Nonreactive Nonreactive LIPID [id number] 16:06:00 Test Item Value Reference Range Comments TRIGLYCERIDES (BEAKER) (test wpqf=780) 38 mg/dL CHOLESTEROL (BEAKER) (test zqvb=358) 51 mg/dL HDL CHOLESTEROL (BEAKER) (test vtcs=300) 10 mg/dL LDL CHOLESTEROL CALCULATED (BEAKER) (test pett=309) 33 mg/dL Triglyceride Reference Range: Low Risk [...] Value Reference Range Comments IRON (BEAKER) (test yakk=282) 90 ug/dL 40-160 TOTAL IRON BINDING CAPACITY (BEAKER) (test 85 ug/dL 250-450 ofna=994) IRON % SATURATION (2) (BEAKER) (test ylhr=2060) 106 % 20-55 [id number] 16:04:00 Test Item Value Reference Range Comments TRANSFERRIN (BEAKER) (test pfuk=301) 65 mg/dL 174-382 Specimen slightly ictericURIC [id number] 16:02:00 Test Item Value Reference Range Comments URIC ACID (BEAKER) (test iuql=287) 8.5 mg/dL 2.6-7.2 Specimen slightly [id number] 15:50:00 Test Item Value Reference Range Comments FIBRINOGEN LEVEL (BEAKER) (test ylzw=094) 161 mg/dl 225-434 BODY FLUID CULTURE + GRAM [id number] 11:45:00 Test Item Value Reference Range Comments CULTURE (BEAKER) (test nthh=6423) No growth GRAM STAIN RESULT (BEAKER) (test No WBCs vmbj=4977) GRAM STAIN RESULT (BEAKER) (test No organisms seen luhx=33958) CBC W/PLT COUNT & AUTO [id number] 08:05:00 Test Item Value Reference Range Comments WHITE BLOOD CELL COUNT (BEAKER) (test ahnc=378) 2.0 K/ L 3.5-10.5 RED BLOOD CELL COUNT (BEAKER) (test lilw=668) 2.20 M/ L 4.63-6.08 HEMOGLOBIN (BEAKER) (test jvbt=196) 7.1 GM/DL 13.7-17.5 HEMATOCRIT (BEAKER) (test aoya=404) 20.8 % 40.1-51.0 MEAN CORPUSCULAR VOLUME (BEAKER) (test xtsq=231) 94.5 fL 79.0-92.2 MEAN CORPUSCULAR HEMOGLOBIN (BEAKER) (test 32.3 pg 25.7-32.2 lvvy=488) MEAN CORPUSCULAR HEMOGLOBIN CONC (BEAKER) (test 34.1 GM/DL 32.3-36.5 abqs=792) RED CELL DISTRIBUTION WIDTH (BEAKER) (test 17.0 % 11.6-14.4 nhdo=655) PLATELET COUNT (BEAKER) (test ojpe=367) 52 K/CU MM 150-450 MEAN PLATELET VOLUME (BEAKER) (test mpkc=124) 10.7 fL 9.4-12.4 NUCLEATED RED BLOOD CELLS (BEAKER) (test 0 /100 WBC 0-0 mkjg=539) NEUTROPHILS RELATIVE PERCENT (BEAKER) (test 55 % weiq=542) LYMPHOCYTES RELATIVE PERCENT (BEAKER) (test 16 % yfnm=452) MONOCYTES RELATIVE PERCENT (BEAKER) (test 20 % ljwr=947) EOSINOPHILS RELATIVE PERCENT (BEAKER) (test 8 % iyto=594) BASOPHILS RELATIVE PERCENT (BEAKER) (test 1 % hvzc=504) NEUTROPHILS ABSOLUTE COUNT (BEAKER) (test 1.10 K/ L 1.78-5.38 oerg=740) LYMPHOCYTES ABSOLUTE COUNT (BEAKER) (test 0.32 K/ L 1.32-3.57 lwjn=758) MONOCYTES ABSOLUTE COUNT (BEAKER) (test balp=217) 0.40 K/ L 0.30-0.82 EOSINOPHILS ABSOLUTE COUNT (BEAKER) (test 0.16 K/ L 0.04-0.54 fhwy=270) BASOPHILS ABSOLUTE COUNT (BEAKER) (test bygn=897) 0.01 K/ L 0.01-0.08 IMMATURE GRANULOCYTES-RELATIVE PERCENT (BEAKER) 1 % 0-1 (test lbqe=9151) (MANUAL DIFFERENTIAL)2017-12-30 08:05:00 Test Item Value Reference Range Comments TOTAL COUNTED (BEAKER) (test pntm=6950) URINALYSIS W/ [id number] 06:46:00 Test Item Value Reference Range Comments COLOR (BEAKER) (test fxaq=568) Yellow CLARITY (BEAKER) (test pgjj=670) Clear SPECIFIC GRAVITY UA (BEAKER) (test wpsp=840) 1.008 1.001-1.035 PH UA (BEAKER) (test fblw=720) 6.0 5.0-8.0 PROTEIN UA (BEAKER) (test kpsh=625) Negative Negative GLUCOSE UA (BEAKER) (test tjph=825) Negative Negative KETONES UA (BEAKER) (test injv=784) Negative Negative BILIRUBIN UA (BEAKER) (test gtmq=329) Negative Negative BLOOD UA (BEAKER) (test cobi=792) Negative Negative NITRITE UA (BEAKER) (test gper=921) Negative Negative LEUKOCYTE ESTERASE UA (BEAKER) (test ujzs=964) Negative Negative UROBILINOGEN UA (BEAKER) (test brlf=698) 0.2 mg/dL 0.2-1.0 RBC UA (BEAKER) (test xkhx=265) 0 /HPF WBC UA (BEAKER) (test rtal=531) 0 /HPF HYALINE CASTS (BEAKER) (test nqhl=417) 5 /LPF SOURCE(BEAKER) (test wpfy=9770) Urine, Voided SODIUM, RANDOM [id number] 06:35:00 Test Item Value Reference Range Comments SODIUM URINE (BEAKER) (test njud=629) < meq/L Reference Range: No NormalsPROTEIN, RANDOM [id number] 06:35:00 Test Item Value Reference Range Comments PROTEIN, URINE (BEAKER) (test dlog=1890) < mg/dL 0-14 [id number] 06:21:00 Test Item Value Reference Range Comments MAGNESIUM (BEAKER) (test 1.8 mg/dL 1.6-2.6 Specimen slightly hemolyzed cmsx=597) [id number] 06:21:00 Test Item Value Reference Range Comments PHOSPHORUS (BEAKER) (test 2.9 mg/dL 2.3-4.7 Specimen slightly hemolyzed dmza=348) COMPREHENSIVE METABOLIC [id number] 06:21:00 Test Item Value Reference Range Comments TOTAL PROTEIN (BEAKER) 5.6 gm/dL 6.0-8.3 Specimen slightly (test gmcg=260) hemolyzed ALBUMIN (BEAKER) (test 3.5 g/dL 3.5-5.0 Specimen slightly socy=2383) hemolyzed ALKALINE PHOSPHATASE 75 U/L 40-150 (BEAKER) (test bkrw=695) BILIRUBIN TOTAL (BEAKER) 3.0 mg/dL 0.2-1.2 Specimen slightly (test ihau=883) hemolyzed SODIUM (BEAKER) (test 127 meq/L 136-145 mizr=548) POTASSIUM (BEAKER) (test 5.2 meq/L 3.5-5.1 Specimen slightly xpxz=231) hemolyzed CHLORIDE (BEAKER) (test 97 meq/L 98-107 gxuv=241) CO2 (BEAKER) (test 24 meq/L 22-29 lvzv=134) BLOOD UREA NITROGEN 22 mg/dL 7-21 (BEAKER) (test snoh=486) CREATININE (BEAKER) (test 1.11 mg/dL 0.57-1.25 Specimen slightly yuvf=042) hemolyzed GLUCOSE RANDOM (BEAKER) 94 mg/dL 70-105 (test bkuq=959) CALCIUM (BEAKER) (test 9.4 mg/dL 8.4-10.2 utkx=531) AST (SGOT) (BEAKER) (test 22 U/L 5-34 Specimen slightly lyrm=484) hemolyzed ALT (SGPT) (BEAKER) (test 7 U/L 6-55 Specimen slightly umaw=852) hemolyzed EGFR (BEAKER) (test 70 mL/min/1.73 sq m ESTIMATED GFR IS NOT butv=9581) ACCURATE CREATININE CLEARANCE IN PREDICTING GLOMERULAR FILTRATION RATE. ESTIMATED GFR IS NOT APPLICABLE FOR DIALYSIS PATIENTS. Specimen slightly ictericCREATININE, RANDOM [id number] 06:19:00 Test Item Value Reference Range Comments CREATININE URINE (BEAKER) (test rxsd=100) 60.6 mg/dL Reference Range: No [id number] 13:43:00 Test Item Value Reference Range Comments ETHANOL (BEAKER) (test guqg=416) < mg/dL <=10 COMPREHENSIVE METABOLIC [id number] 08:23:00 Test Item Value Reference Range Comments TOTAL PROTEIN (BEAKER) 5.5 gm/dL 6.0-8.3 (test ezzl=045) ALBUMIN (BEAKER) (test 3.3 g/dL 3.5-5.0 irej=1518) ALKALINE PHOSPHATASE 85 U/L 40-150 (BEAKER) (test kgcx=505) BILIRUBIN TOTAL (BEAKER) 3.8 mg/dL 0.2-1.2 (test vcmm=530) SODIUM (BEAKER) (test 125 meq/L 136-145 kkyy=772) POTASSIUM (BEAKER) (test 4.7 meq/L 3.5-5.1 bons=229) CHLORIDE (BEAKER) (test 96 meq/L 98-107 lekp=669) CO2 (BEAKER) (test 21 meq/L 22-29 aqhg=270) BLOOD UREA NITROGEN 22 mg/dL 7-21 (BEAKER) (test voei=584) CREATININE (BEAKER) (test 1.26 mg/dL 0.57-1.25 wgiq=107) GLUCOSE RANDOM (BEAKER) 95 mg/dL 70-105 (test djrk=170) CALCIUM (BEAKER) (test 9.1 mg/dL 8.4-10.2 ratc=216) AST (SGOT) (BEAKER) (test 20 U/L 5-34 truh=950) ALT (SGPT) (BEAKER) (test 8 U/L 6-55 gbmy=687) EGFR (BEAKER) (test 60 mL/min/1.73 sq m ESTIMATED GFR IS NOT xivs=7583) ACCURATE CREATININE CLEARANCE IN PREDICTING GLOMERULAR FILTRATION RATE. ESTIMATED GFR IS NOT APPLICABLE FOR DIALYSIS PATIENTS. Specimen slightly ictericCBC W/PLT COUNT & AUTO [id number] 07:17 :00 Test Item Value Reference Range Comments WHITE BLOOD CELL COUNT (BEAKER) (test jqwn=824) 2.8 K/ L 3.5-10.5 RED BLOOD CELL COUNT (BEAKER) (test jnuy=864) 2.28 M/ L 4.63-6.08 HEMOGLOBIN (BEAKER) (test enrq=317) 7.3 GM/DL 13.7-17.5 HEMATOCRIT (BEAKER) (test hldh=008) 21.4 % 40.1-51.0 MEAN CORPUSCULAR VOLUME (BEAKER) (test qfat=612) 93.9 fL 79.0-92.2 MEAN CORPUSCULAR HEMOGLOBIN (BEAKER) (test 32.0 pg 25.7-32.2 eeqg=528) MEAN CORPUSCULAR HEMOGLOBIN CONC (BEAKER) (test 34.1 GM/DL 32.3-36.5 blwf=486) RED CELL DISTRIBUTION WIDTH (BEAKER) (test 16.9 % 11.6-14.4 htvu=107) PLATELET COUNT (BEAKER) (test deim=210) 52 K/CU MM 150-450 MEAN PLATELET VOLUME (BEAKER) (test hhfa=817) 9.8 fL 9.4-12.4 NUCLEATED RED BLOOD CELLS (BEAKER) (test 0 /100 WBC 0-0 kekc=816) NEUTROPHILS RELATIVE PERCENT (BEAKER) (test 61 % ywro=291) LYMPHOCYTES RELATIVE PERCENT (BEAKER) (test 14 % ykcf=384) MONOCYTES RELATIVE PERCENT (BEAKER) (test 18 % rjfn=538) EOSINOPHILS RELATIVE PERCENT (BEAKER) (test 7 % erqf=159) BASOPHILS RELATIVE PERCENT (BEAKER) (test 0 % agud=492) NEUTROPHILS ABSOLUTE COUNT (BEAKER) (test 1.69 K/ L 1.78-5.38 pqlo=739) LYMPHOCYTES ABSOLUTE COUNT (BEAKER) (test 0.38 K/ L 1.32-3.57 ycdn=315) MONOCYTES ABSOLUTE COUNT (BEAKER) (test pgvl=840) 0.51 K/ L 0.30-0.82 EOSINOPHILS ABSOLUTE COUNT (BEAKER) (test 0.18 K/ L 0.04-0.54 zyto=908) BASOPHILS ABSOLUTE COUNT (BEAKER) (test gaet=054) 0.01 K/ L 0.01-0.08 IMMATURE GRANULOCYTES-RELATIVE PERCENT (BEAKER) 1 % 0-1 (test ucxr=8925) CT, [id number] 22:20:00FINAL REPORT EXAM: CT of the abdomen [...] MDReport Verified Date/Time: 12/28/2017 22:20:52 Reading Location: [address] Transitional Reading Room CBC W/PLT COUNT & AUTO [id number] 18:06:00 Test Item Value Reference Range Comments WHITE BLOOD CELL COUNT (BEAKER) (test oplr=304) 2.9 K/ L 3.5-10.5 RED BLOOD CELL COUNT (BEAKER) (test ckpg=774) 2.03 M/ L 4.63-6.08 HEMOGLOBIN (BEAKER) (test zdht=322) 6.5 GM/DL 13.7-17.5 HEMATOCRIT (BEAKER) (test hhdu=315) 19.2 % 40.1-51.0 MEAN CORPUSCULAR VOLUME (BEAKER) (test syan=945) 94.6 fL 79.0-92.2 MEAN CORPUSCULAR HEMOGLOBIN (BEAKER) (test 32.0 pg 25.7-32.2 kmdt=762) MEAN CORPUSCULAR HEMOGLOBIN CONC (BEAKER) (test 33.9 GM/DL 32.3-36.5 fyty=475) RED CELL DISTRIBUTION WIDTH (BEAKER) (test 17.6 % 11.6-14.4 vvjz=081) PLATELET COUNT (BEAKER) (test zjpn=107) 46 K/CU MM 150-450 MEAN PLATELET VOLUME (BEAKER) (test teht=852) 9.3 fL 9.4-12.4 NUCLEATED RED BLOOD CELLS (BEAKER) (test 0 /100 WBC 0-0 iyam=635) NEUTROPHILS RELATIVE PERCENT (BEAKER) (test 66 % dqnb=594) LYMPHOCYTES RELATIVE PERCENT (BEAKER) (test 12 % hrsp=306) MONOCYTES RELATIVE PERCENT (BEAKER) (test 15 % rnss=792) EOSINOPHILS RELATIVE PERCENT (BEAKER) (test 6 % ugpc=581) BASOPHILS RELATIVE PERCENT (BEAKER) (test 0 % awnm=849) NEUTROPHILS ABSOLUTE COUNT (BEAKER) (test 1.92 K/ L 1.78-5.38 uptn=186) LYMPHOCYTES ABSOLUTE COUNT (BEAKER) (test 0.36 K/ L 1.32-3.57 tnxw=482) MONOCYTES ABSOLUTE COUNT (BEAKER) (test juix=119) 0.44 K/ L 0.30-0.82 EOSINOPHILS ABSOLUTE COUNT (BEAKER) (test 0.16 K/ L 0.04-0.54 pjow=056) BASOPHILS ABSOLUTE COUNT (BEAKER) (test aluu=887) 0.01 K/ L 0.01-0.08 IMMATURE GRANULOCYTES-RELATIVE PERCENT (BEAKER) 1 % 0-1 (test dsjs=1790) CBC W/PLT COUNT & AUTO [id number] 12:30:00 Test Item Value Reference Range Comments WHITE BLOOD CELL COUNT (BEAKER) (test urqj=422) 3.1 K/ L 3.5-10.5 RED BLOOD CELL COUNT (BEAKER) (test mtze=653) 2.09 M/ L 4.63-6.08 HEMOGLOBIN (BEAKER) (test uksr=518) 6.8 GM/DL 13.7-17.5 HEMATOCRIT (BEAKER) (test kfjt=743) 19.9 % 40.1-51.0 MEAN CORPUSCULAR VOLUME (BEAKER) (test drps=630) 95.2 fL 79.0-92.2 MEAN CORPUSCULAR HEMOGLOBIN (BEAKER) (test 32.5 pg 25.7-32.2 kuef=603) MEAN CORPUSCULAR HEMOGLOBIN CONC (BEAKER) (test 34.2 GM/DL 32.3-36.5 zevc=008) RED CELL DISTRIBUTION WIDTH (BEAKER) (test 17.5 % 11.6-14.4 ncyy=121) PLATELET COUNT (BEAKER) (test mygw=705) 65 K/CU MM 150-450 MEAN PLATELET VOLUME (BEAKER) (test ppkv=415) 10.6 fL 9.4-12.4 NUCLEATED RED BLOOD CELLS (BEAKER) (test 0 /100 WBC 0-0 icez=912) NEUTROPHILS RELATIVE PERCENT (BEAKER) (test 60 % qzxt=791) LYMPHOCYTES RELATIVE PERCENT (BEAKER) (test 14 % rwqt=193) MONOCYTES RELATIVE PERCENT (BEAKER) (test 17 % erxn=822) EOSINOPHILS RELATIVE PERCENT (BEAKER) (test 8 % imtj=543) BASOPHILS RELATIVE PERCENT (BEAKER) (test 0 % mfww=080) NEUTROPHILS ABSOLUTE COUNT (BEAKER) (test 1.85 K/ L 1.78-5.38 jhol=129) LYMPHOCYTES ABSOLUTE COUNT (BEAKER) (test 0.42 K/ L 1.32-3.57 xmuv=215) MONOCYTES ABSOLUTE COUNT (BEAKER) (test mtlh=258) 0.52 K/ L 0.30-0.82 EOSINOPHILS ABSOLUTE COUNT (BEAKER) (test 0.26 K/ L 0.04-0.54 dljx=823) BASOPHILS ABSOLUTE COUNT (BEAKER) (test fhdu=755) 0.01 K/ L 0.01-0.08 IMMATURE GRANULOCYTES-RELATIVE PERCENT (BEAKER) 1 % 0-1 (test azjw=7831) U/S, [id number] 06:59:00Limit fluid removal to no more than 5 litersReason for exam:->ascites, concern for sbpShould thisbe performed at the bedside?->NoFINAL REPORT Paracentesis dated 2017 Procedure: Ultrasound-guided paracentesis. Preprocedure diagnosis: Ascites Postprocedure diagnosis: Ascites Conscious sedation: None. Radiologist: Lena Lynn M.D. Marine Operations Coordinator: None Anesthesia: 1% Xylocaine mixed with sodium bicarbonate local anesthesia. Technique: After obtaining informed consent, ultrasound-guided paracentesis was performed under usual sterile technique. Using a 5 finnish drainage catheter, puncture was made in the right lower quadrant abdomen. Approximately 5000 cc of serous fluid was removed. Patient tolerated the procedure well without complication. Complication: None Graft/ Implant: None Estimated Blood Loss: NoneImpression: Ultrasound-guided paracentesis. Signed: Lena Lynn MDReport Verified Date/Time: 12/28/2017 06:59 :16 Reading Location: [facility] C013Y CT Body Reading Room ALPHA FETOPROTEIN (AFP), TUMOR [id number] 06:22:00 Test Item Value Reference Range Comments ALPHA-FETOPROTEIN (BEAKER) (test aqqv=0521) 4.1 ng/mL <10.0 COMPREHENSIVE METABOLIC [id number] 06:00:00 Test Item Value Reference Range Comments TOTAL PROTEIN (BEAKER) 5.3 gm/dL 6.0-8.3 (test ejis=196) ALBUMIN (BEAKER) (test 2.7 g/dL 3.5-5.0 yplk=4545) ALKALINE PHOSPHATASE 94 U/L 40-150 (BEAKER) (test vucm=873) BILIRUBIN TOTAL (BEAKER) 3.7 mg/dL 0.2-1.2 (test zqhy=692) SODIUM (BEAKER) (test 124 meq/L 136-145 yarr=803) POTASSIUM (BEAKER) (test 4.6 meq/L 3.5-5.1 laqu=431) CHLORIDE (BEAKER) (test 96 meq/L 98-107 uwjl=346) CO2 (BEAKER) (test 22 meq/L 22-29 lvlj=361) BLOOD UREA NITROGEN 22 mg/dL 7-21 (BEAKER) (test ltvc=879) CREATININE (BEAKER) (test 1.40 mg/dL 0.57-1.25 rzhj=024) GLUCOSE RANDOM (BEAKER) 89 mg/dL 70-105 (test skbt=894) CALCIUM (BEAKER) (test 8.8 mg/dL 8.4-10.2 srsq=156) AST (SGOT) (BEAKER) (test 25 U/L 5-34 smws=223) ALT (SGPT) (BEAKER) (test 10 U/L 6-55 nezt=364) EGFR (BEAKER) (test 53 mL/min/1.73 sq m ESTIMATED GFR IS NOT spfs=2830) ACCURATE CREATININE CLEARANCE IN PREDICTING GLOMERULAR FILTRATION RATE. ESTIMATED GFR IS NOT APPLICABLE FOR DIALYSIS PATIENTS. Specimen slightly ictericCBC W/PLT COUNT & AUTO [id number] 05:50 :00 Test Item Value Reference Range Comments WHITE BLOOD CELL COUNT (BEAKER) (test jixu=569) 3.1 K/ L 3.5-10.5 RED BLOOD CELL COUNT (BEAKER) (test widn=336) 2.00 M/ L 4.63-6.08 HEMOGLOBIN (BEAKER) (test tuqb=272) 6.4 GM/DL 13.7-17.5 HEMATOCRIT (BEAKER) (test ncon=367) 18.9 % 40.1-51.0 MEAN CORPUSCULAR VOLUME (BEAKER) (test dyjv=894) 94.5 fL 79.0-92.2 MEAN CORPUSCULAR HEMOGLOBIN (BEAKER) (test 32.0 pg 25.7-32.2 rqfy=412) MEAN CORPUSCULAR HEMOGLOBIN CONC (BEAKER) (test 33.9 GM/DL 32.3-36.5 ruyk=138) RED CELL DISTRIBUTION WIDTH (BEAKER) (test 17.9 % 11.6-14.4 zthi=055) PLATELET COUNT (BEAKER) (test xakg=098) 59 K/CU MM 150-450 MEAN PLATELET VOLUME (BEAKER) (test yvwq=335) 10.4 fL 9.4-12.4 NUCLEATED RED BLOOD CELLS (BEAKER) (test 0 /100 WBC 0-0 uorr=561) NEUTROPHILS RELATIVE PERCENT (BEAKER) (test 63 % nucj=875) LYMPHOCYTES RELATIVE PERCENT (BEAKER) (test 14 % nclb=877) MONOCYTES RELATIVE PERCENT (BEAKER) (test 15 % pchb=696) EOSINOPHILS RELATIVE PERCENT (BEAKER) (test 7 % ejcu=807) BASOPHILS RELATIVE PERCENT (BEAKER) (test 0 % lzvz=655) NEUTROPHILS ABSOLUTE COUNT (BEAKER) (test 1.94 K/ L 1.78-5.38 fbyf=029) LYMPHOCYTES ABSOLUTE COUNT (BEAKER) (test 0.44 K/ L 1.32-3.57 qfxz=947) MONOCYTES ABSOLUTE COUNT (BEAKER) (test nksi=998) 0.47 K/ L 0.30-0.82 EOSINOPHILS ABSOLUTE COUNT (BEAKER) (test 0.21 K/ L 0.04-0.54 yxkz=807) BASOPHILS ABSOLUTE COUNT (BEAKER) (test wqws=719) 0.01 K/ L 0.01-0.08 IMMATURE GRANULOCYTES-RELATIVE PERCENT (BEAKER) 1 % 0-1 (test yryv=2074) BODY FLUID CELL COUNT WITH [id number] 20:39:00 Test Item Value Reference Range Comments APPEARANCE FLUID (BEAKER) (test bilj=902) Slightly Hazy Clear COLOR FLUID (BEAKER) (test zeuz=662) Yellow Colorless, Straw RBC FLUID (BEAKER) (test deyz=114) 90 /cu mm <=1 ADJUSTED WBC FLUID (BEAKER) (test ljwc=0818) 47 /cu mm <=5 LINING CELLS (BEAKER) (test kheu=1560) 3 /cu mm <=1 NEUTROPHILS FLUID (BEAKER) (test ymde=2099) 2 % LYMPHS FLUID (BEAKER) (test ukxe=267) 19 % MONO/MACROPHAGE FLUID (BEAKER) (test 79 % gpeu=664) EOSINOPHILS FLUID (BEAKER) (test uffd=404) 0 % BASO FLUID (BEAKER) (test xksj=079) 0 % CONTAINER BODY FLUID (BEAKER) (test EDTA Tube spem=5439) ALBUMIN, BODY [id number] 20:14:00 Test Item Value Reference Range Comments ALBUMIN FLUID (BEAKER) (test owsn=669) 0.4 gm/dL Reference Range: No Normals Assay performance has not been validated for this type of specimen.BASIC METABOLIC [id number] 10:31:00 Test Item Value Reference Range Comments SODIUM (BEAKER) (test 125 meq/L 136-145 swul=174) POTASSIUM (BEAKER) (test 4.5 meq/L 3.5-5.1 kihy=241) CHLORIDE (BEAKER) (test 98 meq/L 98-107 yyyz=706) CO2 (BEAKER) (test 20 meq/L 22-29 fhzn=735) BLOOD UREA NITROGEN 22 mg/dL 7-21 (BEAKER) (test dtwl=621) CREATININE (BEAKER) (test 1.45 mg/dL 0.57-1.25 rgrj=022) GLUCOSE RANDOM (BEAKER) 87 mg/dL 70-105 (test cujs=355) CALCIUM (BEAKER) (test 8.6 mg/dL 8.4-10.2 ezce=646) EGFR (BEAKER) (test 51 mL/min/1.73 sq m ESTIMATED GFR IS NOT fsao=1926) ACCURATE CREATININE CLEARANCE IN PREDICTING GLOMERULAR FILTRATION RATE. ESTIMATED GFR IS NOT APPLICABLE FOR DIALYSIS PATIENTS. Specimen slightly ictericHEPATIC FUNCTION [id number] 10:31:00 Test Item Value Reference Range Comments TOTAL PROTEIN (BEAKER) (test dnmp=629) 5.8 gm/dL 6.0-8.3 ALBUMIN (BEAKER) (test klhe=8996) 2.4 g/dL 3.5-5.0 BILIRUBIN TOTAL (BEAKER) (test mdgg=643) 4.1 mg/dL 0.2-1.2 BILIRUBIN DIRECT (BEAKER) (test otdy=741) 3.1 mg/dL 0.1-0.5 ALKALINE PHOSPHATASE (BEAKER) (test cwmq=554) 126 U/L 40-150 AST (SGOT) (BEAKER) (test kutw=681) 28 U/L 5-34 ALT (SGPT) (BEAKER) (test ccel=253) 13 U/L 6-55 Specimen slightly ictericCBC W/PLT COUNT & AUTO [id number] 10:09 :00 Test Item Value Reference Range Comments WHITE BLOOD CELL COUNT (BEAKER) (test imkb=471) 5.5 K/ L 3.5-10.5 RED BLOOD CELL COUNT (BEAKER) (test tacd=474) 2.56 M/ L 4.63-6.08 HEMOGLOBIN (BEAKER) (test qnul=531) 8.1 GM/DL 13.7-17.5 HEMATOCRIT (BEAKER) (test thnm=819) 24.2 % 40.1-51.0 MEAN CORPUSCULAR VOLUME (BEAKER) (test rgez=238) 94.5 fL 79.0-92.2 MEAN CORPUSCULAR HEMOGLOBIN (BEAKER) (test 31.6 pg 25.7-32.2 pukj=995) MEAN CORPUSCULAR HEMOGLOBIN CONC (BEAKER) (test 33.5 GM/DL 32.3-36.5 qrvb=946) RED CELL DISTRIBUTION WIDTH (BEAKER) (test 18.6 % 11.6-14.4 dzgt=512) PLATELET COUNT (BEAKER) (test huby=288) 86 K/CU MM 150-450 MEAN PLATELET VOLUME (BEAKER) (test scdz=116) 9.7 fL 9.4-12.4 NUCLEATED RED BLOOD CELLS (BEAKER) (test 0 /100 WBC 0-0 uflz=546) NEUTROPHILS RELATIVE PERCENT (BEAKER) (test 65 % shyz=504) LYMPHOCYTES RELATIVE PERCENT (BEAKER) (test 13 % dwif=567) MONOCYTES RELATIVE PERCENT (BEAKER) (test 14 % rfct=514) EOSINOPHILS RELATIVE PERCENT (BEAKER) (test 6 % tssy=098) BASOPHILS RELATIVE PERCENT (BEAKER) (test 0 % xgki=598) NEUTROPHILS ABSOLUTE COUNT (BEAKER) (test 3.59 K/ L 1.78-5.38 qdrx=602) LYMPHOCYTES ABSOLUTE COUNT (BEAKER) (test 0.73 K/ L 1.32-3.57 hcxv=487) MONOCYTES ABSOLUTE COUNT (BEAKER) (test qnrd=470) 0.76 K/ L 0.30-0.82 EOSINOPHILS ABSOLUTE COUNT (BEAKER) (test 0.33 K/ L 0.04-0.54 mtfy=924) BASOPHILS ABSOLUTE COUNT (BEAKER) (test zpmm=451) 0.02 K/ L 0.01-0.08 IMMATURE GRANULOCYTES-RELATIVE PERCENT (BEAKER) 1 % 0-1 (test edez=7022) PROTHROMBIN [id number] 07:51:00 Test Item Value Reference Range Comments PROTIME (BEAKER) (test ipnm=394) 23.8 seconds 11.7-14.7 INR (BEAKER) (test bkbm=996) 2.1 <=5.9 RECOMMENDED COUMADIN/WARFARIN INR THERAPY RANGESSTANDARD DOSE: 2.0 - 3.0 Includes: PROPHYLAXIS forvenous thrombosis, systemic embolization; TREATMENT for venous thrombosis and/or pulmonary embolus.HIGH RISK: Target INR is 2.5-3.5 for patients with mechanical heart valves.BLOOD [id number] 05:02:00 Test Item Value Reference Range Comments CULTURE (BEAKER) (test lndl=5963) No growth in 5 days BLOOD [id number] 05:02:00 Test Item Value Reference Range Comments CULTURE (BEAKER) (test slhl=4112) No growth in 5 days BODY FLUID CULTURE + GRAM [id number] 09:05:00 Test Item Value Reference Range Comments CULTURE (BEAKER) (test fnza=6664) No growth GRAM STAIN RESULT (BEAKER) (test No White blood cells seen nrnt=3745) GRAM STAIN RESULT (BEAKER) (test No organisms seen fpxw=84572) RAPID DRUG SCREEN, [id number] 23:13:00 Test Item Value Reference Range Comments BARBITURATE URINE (BEAKER) (test zuzg=442) Negative Negative BENZODIAZEPINE SCREEN URINE (BEAKER) (test Negative Negative vioi=128) COCAINE (METAB.) SCREEN (BEAKER) (test fizq=2846) Negative Negative METHADONE SCREEN (BEAKER) (test djad=8616) Negative Negative OPIATE SCREEN URINE (BEAKER) (test rfjf=309) Negative Negative CANNABINOID SCREEN URINE (BEAKER) (test xlcm=890) Negative Negative AMPH/METHAMPH SCREEN (BEAKER) (test utxk=6251) Negative Negative PHENCYCLIDINE SCREEN URINE (BEAKER) (test nbde=152) Negative Negative OXYCODONE SCREEN URINE (BEAKER) (test cslc=7544) Negative Negative DRUG CUTOFF CONC.Cocaine 300 ng/mL Cannabinoid 50 ng/mL Benzodiazepine 200 ng/mLBarbiturate 200 ng/ mLPhencyclidine 25 ng/mLOpiate 300 ng/mLMethadone 300 ng/mLAmphetamine/ 1000 ng/mL MethamphetamineOxycodone 300 ng/mLThis assay provides an unconfirmed qualitative test result for the clinical management of patients in emergency situations. Chain of custody not maintained. Some khoi-hzn-fsbplhi medications, as well as adulterants, may cause inaccurate results. Clinical correlation should be applied. A more comprehensive drug screen or confirmation of a detected drug may be performed upon request.MR, ABDOMEN, [id number] 13:52:00FINAL REPORT MRI of the abdomen with [...] MDReport Verified Date/Time: 09/05/2017 13:52:35 Reading Location: [address] BodyReading Room CBC W/PLT COUNT & AUTO [id number] 05:46:00 Test Item Value Reference Range Comments WHITE BLOOD CELL COUNT (BEAKER) (test kiju=258) 4.7 K/ L 3.5-10.5 RED BLOOD CELL COUNT (BEAKER) (test ggoi=684) 2.49 M/ L 4.63-6.08 HEMOGLOBIN (BEAKER) (test sgwh=411) 7.9 GM/DL 13.7-17.5 HEMATOCRIT (BEAKER) (test nyae=130) 22.6 % 40.1-51.0 MEAN CORPUSCULAR VOLUME (BEAKER) (test bzsv=762) 90.8 fL 79.0-92.2 MEAN CORPUSCULAR HEMOGLOBIN (BEAKER) (test 31.7 pg 25.7-32.2 usqw=470) MEAN CORPUSCULAR HEMOGLOBIN CONC (BEAKER) (test 35.0 GM/DL 32.3-36.5 objg=156) RED CELL DISTRIBUTION WIDTH (BEAKER) (test 18.8 % 11.6-14.4 tlhf=387) PLATELET COUNT (BEAKER) (test ebra=495) 60 K/CU MM 150-450 MEAN PLATELET VOLUME (BEAKER) (test cweu=400) 9.2 fL 9.4-12.4 NUCLEATED RED BLOOD CELLS (BEAKER) (test 0 /100 WBC 0-0 mxii=043) NEUTROPHILS RELATIVE PERCENT (BEAKER) (test 65 % cwdu=090) LYMPHOCYTES RELATIVE PERCENT (BEAKER) (test 13 % budg=506) MONOCYTES RELATIVE PERCENT (BEAKER) (test 15 % chie=807) EOSINOPHILS RELATIVE PERCENT (BEAKER) (test 6 % kppw=899) BASOPHILS RELATIVE PERCENT (BEAKER) (test 0 % bhsx=991) NEUTROPHILS ABSOLUTE COUNT (BEAKER) (test 3.05 K/ L 1.78-5.38 nynv=157) LYMPHOCYTES ABSOLUTE COUNT (BEAKER) (test 0.62 K/ L 1.32-3.57 hgun=937) MONOCYTES ABSOLUTE COUNT (BEAKER) (test acyb=672) 0.68 K/ L 0.30-0.82 EOSINOPHILS ABSOLUTE COUNT (BEAKER) (test 0.28 K/ L 0.04-0.54 jpmt=355) BASOPHILS ABSOLUTE COUNT (BEAKER) (test xfrk=962) 0.02 K/ L 0.01-0.08 IMMATURE GRANULOCYTES-RELATIVE PERCENT (BEAKER) 1 % 0-1 (test ebwf=4510) BASIC METABOLIC [id number] 05:44:00 Test Item Value Reference Range Comments SODIUM (BEAKER) (test 127 meq/L 136-145 xtzk=618) POTASSIUM (BEAKER) (test 4.5 meq/L 3.5-5.1 xfnm=162) CHLORIDE (BEAKER) (test 101 meq/L 98-107 marj=582) CO2 (BEAKER) (test 19 meq/L 22-29 wvwg=169) BLOOD UREA NITROGEN 17 mg/dL 7-21 (BEAKER) (test aaam=716) CREATININE (BEAKER) (test 0.91 mg/dL 0.57-1.25 cqsy=089) GLUCOSE RANDOM (BEAKER) 107 mg/dL 70-105 (test jsvb=297) CALCIUM (BEAKER) (test 9.4 mg/dL 8.4-10.2 wnad=027) EGFR (BEAKER) (test 87 mL/min/1.73 sq m ESTIMATED GFR IS NOT wfvu=9433) ACCURATE CREATININE CLEARANCE IN PREDICTING GLOMERULAR FILTRATION RATE. ESTIMATED GFR IS NOT APPLICABLE FOR DIALYSIS PATIENTS. Specimen moderately ictericHEPATIC FUNCTION [id number] 05:44:00 Test Item Value Reference Range Comments TOTAL PROTEIN (BEAKER) (test pycu=905) 5.6 gm/dL 6.0-8.3 ALBUMIN (BEAKER) (test klej=4181) 3.3 g/dL 3.5-5.0 BILIRUBIN TOTAL (BEAKER) (test mpjq=963) 10.3 mg/dL 0.2-1.2 BILIRUBIN DIRECT (BEAKER) (test xsgq=353) 6.8 mg/dL 0.1-0.5 ALKALINE PHOSPHATASE (BEAKER) (test veak=386) 103 U/L 40-150 AST (SGOT) (BEAKER) (test yvhc=970) 17 U/L 5-34 ALT (SGPT) (BEAKER) (test qkrj=934) 8 U/L 6-55 Specimen moderately ictericPT/[id number] 05:31:00 Test Item Value Reference Range Comments PROTIME (BEAKER) (test adeg=295) 25.6 seconds 11.7-14.7 INR (BEAKER) (test fcdm=763) 2.3 <=5.9 PARTIAL THROMBOPLASTIN TIME (BEAKER) (test 51.6 seconds 22.5-36.0 prai=485) RECOMMENDED COUMADIN/WARFARIN INR THERAPY RANGESSTANDARD DOSE: 2.0 - 3.0 Includes: PROPHYLAXIS forvenous thrombosis, systemic embolization; TREATMENT for venous thrombosis and/or pulmonary embolus.HIGH RISK: Target INR is 2.5-3.5 for patients with mechanical heart valves.PROTHROMBIN TIME/[id number] 05:30: 00 Test Item Value Reference Range Comments PROTIME (BEAKER) (test pqyk=302) 25.6 seconds 11.7-14.7 INR (BEAKER) (test vinm=448) 2.3 <=5.9 RECOMMENDED COUMADIN/WARFARIN INR THERAPY RANGESSTANDARD DOSE: 2.0 - 3.0 Includes: PROPHYLAXIS forvenous thrombosis, systemic embolization; TREATMENT for venous thrombosis and/or pulmonary embolus.HIGH RISK: Target INR is 2.5-3.5 for patients with mechanical heart valves.BODY FLUID CELL COUNT WITH [id number] 19:30:00 Test Item Value Reference Range Comments APPEARANCE FLUID (BEAKER) (test owkl=574) Slightly Hazy Clear COLOR FLUID (BEAKER) (test lfve=336) Yellow Colorless, Straw RBC FLUID (BEAKER) (test xlru=787) 100 /cu mm <=1 ADJUSTED WBC FLUID (BEAKER) (test xkbj=4119) 36 /cu mm <=5 LINING CELLS (BEAKER) (test bqfe=2774) 4 /cu mm <=1 NEUTROPHILS FLUID (BEAKER) (test tyks=0440) 0 % LYMPHS FLUID (BEAKER) (test ovks=765) 20 % MONO/MACROPHAGE FLUID (BEAKER) (test 80 % mxgm=976) EOSINOPHILS FLUID (BEAKER) (test aqow=734) 0 % BASO FLUID (BEAKER) (test psjm=461) 0 % CONTAINER BODY FLUID (BEAKER) (test EDTA Tube blkz=7352) U/S, [id number] 16:21:00Reason for exam:->ascitesShould this be performed at the bedside?->NoFINAL REPORT PROCEDURE: Ultrasound-guided paracentesis. INDICATION: 52-year-old man with ascites. DESCRIPTION: After obtaining informed written consent, ultrasound scan of the abdomen identified ascites in the right lower quadrant. The overlying skin was prepped and draped in the usual, sterile fashion and local 1% lidocaine anesthesia was administered. A 5 [place] catheter was advanced into the peritoneal cavity and 13,200 cc of cloudy yellow fluid was removed. The catheter was removed without immediate complication. Samples were sent for analysis. IMPRESSION:Uncomplicated ultrasound-guided paracentesis with 13,200 cc fluid removed. Signed: Candice Mckeon Verified Date/Time: 2016 16:21:22 Reading Location: [address] Ultrasound Reading Room [facility] METABOLIC [id number] 11:07:00 Test Item Value Reference Range Comments SODIUM (BEAKER) (test 127 meq/L 136-145 cvwt=957) POTASSIUM (BEAKER) (test 4.1 meq/L 3.5-5.1 ahyt=357) CHLORIDE (BEAKER) (test 101 meq/L 98-107 pahg=390) CO2 (BEAKER) (test 23 meq/L 22-29 bqsz=909) BLOOD UREA NITROGEN 17 mg/dL 7-21 (BEAKER) (test uzfy=845) CREATININE (BEAKER) (test 1.06 mg/dL 0.57-1.25 iyao=336) GLUCOSE RANDOM (BEAKER) 104 mg/dL 70-105 (test wfdw=575) CALCIUM (BEAKER) (test 8.9 mg/dL 8.4-10.2 fzwv=702) EGFR (BEAKER) (test 73 mL/min/1.73 sq m ESTIMATED GFR IS NOT htvy=6200) ACCURATE CREATININE CLEARANCE IN PREDICTING GLOMERULAR FILTRATION RATE. ESTIMATED GFR IS NOT APPLICABLE FOR DIALYSIS PATIENTS. Specimen markedly ictericHEPATIC FUNCTION [id number] 11:07:00 Test Item Value Reference Range Comments TOTAL PROTEIN (BEAKER) (test hjrn=173) 5.4 gm/dL 6.0-8.3 ALBUMIN (BEAKER) (test sras=5703) 2.8 g/dL 3.5-5.0 BILIRUBIN TOTAL (BEAKER) (test bknb=496) 12.7 mg/dL 0.2-1.2 BILIRUBIN DIRECT (BEAKER) (test dxcu=067) 7.8 mg/dL 0.1-0.5 ALKALINE PHOSPHATASE (BEAKER) (test sofz=423) 90 U/L 40-150 AST (SGOT) (BEAKER) (test zsps=408) 22 U/L 5-34 ALT (SGPT) (BEAKER) (test modk=762) 11 U/L 6-55 Specimen markedly ictericPT/[id number] 11:02:00 Test Item Value Reference Range Comments PROTIME (BEAKER) (test ebqm=996) 23.4 seconds 11.7-14.7 INR (BEAKER) (test ucoj=076) 2.1 <=5.9 PARTIAL THROMBOPLASTIN TIME (BEAKER) (test 48.7 seconds 22.5-36.0 ycch=569) RECOMMENDED COUMADIN/WARFARIN INR THERAPY RANGESSTANDARD DOSE: 2.0 - 3.0 Includes: PROPHYLAXIS forvenous thrombosis, systemic embolization; TREATMENT for venous thrombosis and/or pulmonary embolus.HIGH RISK: Target INR is 2.5-3.5 for patients with mechanical heart valves.PROTHROMBIN TIME/[id number] 11:01: 00 Test Item Value Reference Range Comments PROTIME (BEAKER) (test wlkh=750) 23.4 seconds 11.7-14.7 INR (BEAKER) (test yypm=243) 2.1 <=5.9 RECOMMENDED COUMADIN/WARFARIN INR THERAPY RANGESSTANDARD DOSE: 2.0 - 3.0 Includes: PROPHYLAXIS forvenous thrombosis, systemic embolization; TREATMENT for venous thrombosis and/or pulmonary embolus.HIGH RISK: Target INR is 2.5-3.5 for patients with mechanical heart valves.CBC W/PLT COUNT & AUTO [id number] 10:56:00 Test Item Value Reference Range Comments WHITE BLOOD CELL COUNT (BEAKER) (test sqto=279) 4.4 K/ L 3.5-10.5 RED BLOOD CELL COUNT (BEAKER) (test lwhh=358) 2.48 M/ L 4.63-6.08 HEMOGLOBIN (BEAKER) (test dein=812) 7.8 GM/DL 13.7-17.5 HEMATOCRIT (BEAKER) (test ixzg=639) 22.7 % 40.1-51.0 MEAN CORPUSCULAR VOLUME (BEAKER) (test iogg=758) 91.5 fL 79.0-92.2 MEAN CORPUSCULAR HEMOGLOBIN (BEAKER) (test 31.5 pg 25.7-32.2 dtwt=395) MEAN CORPUSCULAR HEMOGLOBIN CONC (BEAKER) (test 34.4 GM/DL 32.3-36.5 bwks=354) RED CELL DISTRIBUTION WIDTH (BEAKER) (test 18.6 % 11.6-14.4 nuap=797) PLATELET COUNT (BEAKER) (test zhxj=205) 60 K/CU MM 150-450 MEAN PLATELET VOLUME (BEAKER) (test bede=443) 8.8 fL 9.4-12.4 NUCLEATED RED BLOOD CELLS (BEAKER) (test 0 /100 WBC 0-0 vzfd=639) NEUTROPHILS RELATIVE PERCENT (BEAKER) (test 61 % pwck=884) LYMPHOCYTES RELATIVE PERCENT (BEAKER) (test 9 % hsum=331) MONOCYTES RELATIVE PERCENT (BEAKER) (test 21 % srol=470) EOSINOPHILS RELATIVE PERCENT (BEAKER) (test 8 % perz=028) BASOPHILS RELATIVE PERCENT (BEAKER) (test 1 % mdkc=276) NEUTROPHILS ABSOLUTE COUNT (BEAKER) (test 2.68 K/ L 1.78-5.38 xhwa=554) LYMPHOCYTES ABSOLUTE COUNT (BEAKER) (test 0.38 K/ L 1.32-3.57 ecel=238) MONOCYTES ABSOLUTE COUNT (BEAKER) (test vqhc=738) 0.94 K/ L 0.30-0.82 EOSINOPHILS ABSOLUTE COUNT (BEAKER) (test 0.33 K/ L 0.04-0.54 uxrc=425) BASOPHILS ABSOLUTE COUNT (BEAKER) (test mpke=149) 0.02 K/ L 0.01-0.08 IMMATURE GRANULOCYTES-RELATIVE PERCENT (BEAKER) 1 % 0-1 (test yyhv=1413) URINALYSIS W/ [id number] 06:18:00 Test Item Value Reference Range Comments COLOR (BEAKER) (test wzin=042) Dark Yellow CLARITY (BEAKER) (test eche=142) Clear SPECIFIC GRAVITY UA (BEAKER) (test dhfj=251) 1.008 1.001-1.035 PH UA (BEAKER) (test ihnh=665) 6.0 5.0-8.0 PROTEIN UA (BEAKER) (test uhis=684) Negative Negative GLUCOSE UA (BEAKER) (test jepu=081) Negative Negative KETONES UA (BEAKER) (test orec=602) Negative Negative BILIRUBIN UA (BEAKER) (test exmc=560) Positive Negative BLOOD UA (BEAKER) (test ynyc=340) Moderate Negative NITRITE UA (BEAKER) (test emlg=016) Negative Negative LEUKOCYTE ESTERASE UA (BEAKER) (test gfew=075) Negative Negative UROBILINOGEN UA (BEAKER) (test pgef=828) 0.2 mg/dL 0.2-1.0 RBC UA (BEAKER) (test ebrb=974) 80 /HPF WBC UA (BEAKER) (test auow=033) 10 /HPF HYALINE CASTS (BEAKER) (test tlyr=931) 5 /LPF AMORPHOUS CRYSTALS (BEAKER) (test xmin=2176) Rare SOURCE(BEAKER) (test qaxv=4273) CBC W/PLT COUNT & AUTO [id number] 00:00:00 Test Item Value Reference Range Comments WHITE BLOOD CELL COUNT (BEAKER) (test czao=917) 3.7 K/ L 3.5-10.5 RED BLOOD CELL COUNT (BEAKER) (test mrbw=706) 2.20 M/ L 4.63-6.08 HEMOGLOBIN (BEAKER) (test hwos=490) 7.0 GM/DL 13.7-17.5 HEMATOCRIT (BEAKER) (test txmh=246) 20.2 % 40.1-51.0 MEAN CORPUSCULAR VOLUME (BEAKER) (test tidy=682) 91.8 fL 79.0-92.2 MEAN CORPUSCULAR HEMOGLOBIN (BEAKER) (test 31.8 pg 25.7-32.2 tuhv=882) MEAN CORPUSCULAR HEMOGLOBIN CONC (BEAKER) (test 34.7 GM/DL 32.3-36.5 vbmy=387) RED CELL DISTRIBUTION WIDTH (BEAKER) (test 19.3 % 11.6-14.4 hokp=489) PLATELET COUNT (BEAKER) (test zpdc=208) 63 K/CU MM 150-450 MEAN PLATELET VOLUME (BEAKER) (test syzf=935) 9.1 fL 9.4-12.4 NUCLEATED RED BLOOD CELLS (BEAKER) (test 0 /100 WBC 0-0 orxr=290) NEUTROPHILS RELATIVE PERCENT (BEAKER) (test 62 % ytnz=522) LYMPHOCYTES RELATIVE PERCENT (BEAKER) (test 11 % ggwk=748) MONOCYTES RELATIVE PERCENT (BEAKER) (test 19 % kwck=502) EOSINOPHILS RELATIVE PERCENT (BEAKER) (test 7 % ydex=424) BASOPHILS RELATIVE PERCENT (BEAKER) (test 1 % xham=291) NEUTROPHILS ABSOLUTE COUNT (BEAKER) (test 2.29 K/ L 1.78-5.38 azlb=735) LYMPHOCYTES ABSOLUTE COUNT (BEAKER) (test 0.39 K/ L 1.32-3.57 bdjz=403) MONOCYTES ABSOLUTE COUNT (BEAKER) (test znbo=197) 0.71 K/ L 0.30-0.82 EOSINOPHILS ABSOLUTE COUNT (BEAKER) (test 0.27 K/ L 0.04-0.54 nzfw=913) BASOPHILS ABSOLUTE COUNT (BEAKER) (test ijnt=597) 0.02 K/ L 0.01-0.08 IMMATURE GRANULOCYTES-RELATIVE PERCENT (BEAKER) 1 % 0-1 (test tsbq=3744) PROTHROMBIN TIME/[id number] 22:52:00 Test Item Value Reference Range Comments PROTIME (BEAKER) (test ayco=195) 25.6 seconds 11.7-14.7 INR (BEAKER) (test rnva=261) 2.3 <=5.9 RECOMMENDED COUMADIN/WARFARIN INR THERAPY RANGESSTANDARD DOSE: 2.0 - 3.0 Includes: PROPHYLAXIS forvenous thrombosis, systemic embolization; TREATMENT for venous thrombosis and/or pulmonary embolus.HIGH RISK: Target INR is 2.5-3.5 for patients with mechanical heart valves.[id number] 22:52:00 Test Item Value Reference Range Comments MAGNESIUM (BEAKER) (test xyfx=017) 1.3 mg/dL 1.6-2.6 BASIC METABOLIC [id number] 22:52:00 Test Item Value Reference Range Comments SODIUM (BEAKER) (test 124 meq/L 136-145 yrrc=036) POTASSIUM (BEAKER) (test 4.1 meq/L 3.5-5.1 xpkj=502) CHLORIDE (BEAKER) (test 99 meq/L 98-107 atiq=684) CO2 (BEAKER) (test 18 meq/L 22-29 lbmj=552) BLOOD UREA NITROGEN 16 mg/dL 7-21 (BEAKER) (test psco=577) CREATININE (BEAKER) (test 0.97 mg/dL 0.57-1.25 ckpg=188) GLUCOSE RANDOM (BEAKER) 99 mg/dL 70-105 (test tpet=260) CALCIUM (BEAKER) (test 8.7 mg/dL 8.4-10.2 bqvc=342) EGFR (BEAKER) (test 81 mL/min/1.73 sq m ESTIMATED GFR IS NOT ndtb=1774) ACCURATE CREATININE CLEARANCE IN PREDICTING GLOMERULAR FILTRATION RATE. ESTIMATED GFR IS NOT APPLICABLE FOR DIALYSIS PATIENTS. Specimen markedly ictericHEPATIC FUNCTION [id number] 22:52:00 Test Item Value Reference Range Comments TOTAL PROTEIN (BEAKER) (test dufg=640) 5.3 gm/dL 6.0-8.3 ALBUMIN (BEAKER) (test erdj=7084) 2.8 g/dL 3.5-5.0 BILIRUBIN TOTAL (BEAKER) (test btvp=173) 12.7 mg/dL 0.2-1.2 BILIRUBIN DIRECT (BEAKER) (test ztoz=456) 7.6 mg/dL 0.1-0.5 ALKALINE PHOSPHATASE (BEAKER) (test ires=699) 93 U/L 40-150 AST (SGOT) (BEAKER) (test pxmj=721) 21 U/L 5-34 ALT (SGPT) (BEAKER) (test dqbx=786) 9 U/L 6-55 Specimen markedly ictericALPHA FETOPROTEIN (AFP), TUMOR [id number] 16:39: 00 Test Item Value Reference Range Comments ALPHA-FETOPROTEIN (BEAKER) (test vwsp=7816) 2.5 ng/mL <10.0 BASIC METABOLIC [id number] 15:53:00 Test Item Value Reference Range Comments SODIUM (BEAKER) (test 126 meq/L 136-145 mwyj=481) POTASSIUM (BEAKER) (test 5.1 meq/L 3.5-5.1 itqp=467) CHLORIDE (BEAKER) (test 101 meq/L 98-107 ckys=177) CO2 (BEAKER) (test 19 meq/L 22-29 uxcb=227) BLOOD UREA NITROGEN 14 mg/dL 7-21 (BEAKER) (test bbmc=456) CREATININE (BEAKER) (test 1.01 mg/dL 0.57-1.25 nxjh=041) GLUCOSE RANDOM (BEAKER) 104 mg/dL 70-105 (test iuit=225) CALCIUM (BEAKER) (test 9.0 mg/dL 8.4-10.2 agzv=078) EGFR (BEAKER) (test 78 mL/min/1.73 sq m ESTIMATED GFR IS NOT ssxl=1046) ACCURATE CREATININE CLEARANCE IN PREDICTING GLOMERULAR FILTRATION RATE. ESTIMATED GFR IS NOT APPLICABLE FOR DIALYSIS PATIENTS. Specimen moderately ictericHEPATIC FUNCTION [id number] 15:53:00 Test Item Value Reference Range Comments TOTAL PROTEIN (BEAKER) (test ifvl=971) 6.1 gm/dL 6.0-8.3 ALBUMIN (BEAKER) (test xdoj=7597) 2.6 g/dL 3.5-5.0 BILIRUBIN TOTAL (BEAKER) (test alcu=495) 10.4 mg/dL 0.2-1.2 BILIRUBIN DIRECT (BEAKER) (test hmkr=290) 7.5 mg/dL 0.1-0.5 ALKALINE PHOSPHATASE (BEAKER) (test rtqk=416) 124 U/L 40-150 AST (SGOT) (BEAKER) (test mbqs=141) 29 U/L 5-34 ALT (SGPT) (BEAKER) (test hxlw=722) 12 U/L 6-55 Specimen moderately ictericGAMMA GLUTAMYL TRANSFERASE (GGT)[id number] 15:53:00 Test Item Value Reference Range Comments GAMMA GLUTAMYL TRANSFERASE (BEAKER) (test yncg=739) 17 U/L 9-64 Specimen moderately ictericPROTHROMBIN TIME/[id number] 15:40:00 Test Item Value Reference Range Comments PROTIME (BEAKER) (test jzzj=449) 22.6 seconds 11.7-14.7 INR (BEAKER) (test pkao=415) 2.0 <=5.9 RECOMMENDED COUMADIN/WARFARIN INR THERAPY RANGESSTANDARD DOSE: 2.0 - 3.0 Includes: PROPHYLAXIS forvenous thrombosis, systemic embolization; TREATMENT for venous thrombosis and/or pulmonary embolus.HIGH RISK: Target INR is 2.5-3.5 for patients with mechanical heart valves.CBC W/PLT COUNT & AUTO [id number] 15:38:00 Test Item Value Reference Range Comments WHITE BLOOD CELL COUNT (BEAKER) (test yavc=238) 7.3 K/ L 3.5-10.5 RED BLOOD CELL COUNT (BEAKER) (test hpku=680) 2.78 M/ L 4.63-6.08 HEMOGLOBIN (BEAKER) (test pvdy=041) 9.1 GM/DL 13.7-17.5 HEMATOCRIT (BEAKER) (test lwzn=284) 27.3 % 40.1-51.0 MEAN CORPUSCULAR VOLUME (BEAKER) (test svfb=182) 98.2 fL 79.0-92.2 MEAN CORPUSCULAR HEMOGLOBIN (BEAKER) (test 32.7 pg 25.7-32.2 huzx=247) MEAN CORPUSCULAR HEMOGLOBIN CONC (BEAKER) (test 33.3 GM/DL 32.3-36.5 vmnb=515) RED CELL DISTRIBUTION WIDTH (BEAKER) (test 16.4 % 11.6-14.4 jmvs=261) PLATELET COUNT (BEAKER) (test jmdg=873) 71 K/CU MM 150-450 MEAN PLATELET VOLUME (BEAKER) (test ggdc=021) 9.1 fL 9.4-12.4 NUCLEATED RED BLOOD CELLS (BEAKER) (test 0 /100 WBC 0-0 zvgr=986) NEUTROPHILS RELATIVE PERCENT (BEAKER) (test 71 % cdcg=052) LYMPHOCYTES RELATIVE PERCENT (BEAKER) (test 8 % isgs=890) MONOCYTES RELATIVE PERCENT (BEAKER) (test 15 % asal=656) EOSINOPHILS RELATIVE PERCENT (BEAKER) (test 5 % yufv=459) BASOPHILS RELATIVE PERCENT (BEAKER) (test 0 % tdos=088) NEUTROPHILS ABSOLUTE COUNT (BEAKER) (test 5.13 K/ L 1.78-5.38 rctc=664) LYMPHOCYTES ABSOLUTE COUNT (BEAKER) (test 0.59 K/ L 1.32-3.57 mypa=895) MONOCYTES ABSOLUTE COUNT (BEAKER) (test xgaf=683) 1.06 K/ L 0.30-0.82 EOSINOPHILS ABSOLUTE COUNT (BEAKER) (test 0.33 K/ L 0.04-0.54 jbsg=477) BASOPHILS ABSOLUTE COUNT (BEAKER) (test rjoj=599) 0.03 K/ L 0.01-0.08 IMMATURE GRANULOCYTES-RELATIVE PERCENT (BEAKER) 2 % 0-1 (test wpib=1341) FUNGUS CULTURE + [id number] 07:22:00 Test Item Value Reference Range Comments CULTURE (BEAKER) (test No fungus isolated in 28 days ujge=6654) FUNGUS SMEAR (BEAKER) (test No fungi seen gibn=2015) HISTOPLASMA ANTIGEN, [id number] 08:01:00 Test Item Value Reference Range Comments SCAN RESULT (test hoei=[id number]) TISSUE [id number] 10:58:00 Test Item Value Reference Range Comments LAB AP CPT CODE (BEAKER) (test ytfn=2679) [id number] BLOOD [id number] 16:15:00 Test Item Value Reference Range Comments CULTURE (BEAKER) (test guuw=2878) No growth in 5 days BLOOD [id number] 16:15:00 Test Item Value Reference Range Comments CULTURE (BEAKER) (test trqh=9054) No growth in 5 days [id number] 06:54:00 Test Item Value Reference Range Comments PHOSPHORUS (BEAKER) (test yhpb=907) 3.3 mg/dL 2.3-4.7 [id number] 06:54:00 Test Item Value Reference Range Comments MAGNESIUM (BEAKER) (test khtl=131) 1.2 mg/dL 1.6-2.6 BASIC METABOLIC [id number] 06:54:00 Test Item Value Reference Range Comments SODIUM (BEAKER) (test 133 meq/L 136-145 kdqp=364) POTASSIUM (BEAKER) (test 3.6 meq/L 3.5-5.1 rzdg=119) CHLORIDE (BEAKER) (test 108 meq/L 98-107 estc=223) CO2 (BEAKER) (test 17 meq/L 22-29 jvoz=175) BLOOD UREA NITROGEN 13 mg/dL 7-21 (BEAKER) (test sdxt=533) CREATININE (BEAKER) (test 1.16 mg/dL 0.57-1.25 rijx=658) GLUCOSE RANDOM (BEAKER) 82 mg/dL 70-105 (test rbju=939) CALCIUM (BEAKER) (test 8.0 mg/dL 8.4-10.2 pvpo=984) EGFR (BEAKER) (test 66 mL/min/1.73 sq m ESTIMATED GFR IS NOT ffeb=6896) ACCURATE CREATININE CLEARANCE IN PREDICTING GLOMERULAR FILTRATION RATE. ESTIMATED GFR IS NOT APPLICABLE FOR DIALYSIS PATIENTS. Specimen moderately ictericHEPATIC FUNCTION [id number] 06:54:00 Test Item Value Reference Range Comments TOTAL PROTEIN (BEAKER) (test daru=744) 5.7 gm/dL 6.0-8.3 ALBUMIN (BEAKER) (test muwy=4695) 3.1 g/dL 3.5-5.0 BILIRUBIN TOTAL (BEAKER) (test qrdd=996) 5.2 mg/dL 0.2-1.2 BILIRUBIN DIRECT (BEAKER) (test slxv=609) 2.6 mg/dL 0.1-0.5 ALKALINE PHOSPHATASE (BEAKER) (test wyxh=955) 55 U/L 40-150 AST (SGOT) (BEAKER) (test sjxz=361) 32 U/L 5-34 ALT (SGPT) (BEAKER) (test pxhv=231) 9 U/L 6-55 Specimen moderately ictericCALCIUM, [id number] 06:30:00 Test Item Value Reference Range Comments CALCIUM IONIZED (BEAKER) (test gvtw=244) 1.00 mmol/L 1.12-1.27 PH, BLOOD (BEAKER) (test hvag=6241) 7.52 CBC W/PLT COUNT & AUTO [id number] 06:17:00 Test Item Value Reference Range Comments WHITE BLOOD CELL COUNT (BEAKER) (test zcrd=200) 4.7 K/ L 4.0-10.0 RED BLOOD CELL COUNT (BEAKER) (test scdx=077) 2.05 M/ L 4.20-5.80 HEMOGLOBIN (BEAKER) (test tbmd=013) 7.1 GM/DL 13.0-16.8 HEMATOCRIT (BEAKER) (test dhwj=380) 21.1 % 40.0-50.0 MEAN CORPUSCULAR VOLUME (BEAKER) (test vjxg=140) 103.0 fL 82.0-98.0 MEAN CORPUSCULAR HEMOGLOBIN (BEAKER) (test 34.8 pg 27.0-33.0 qnqt=043) MEAN CORPUSCULAR HEMOGLOBIN CONC (BEAKER) (test 33.8 GM/DL 32.0-36.0 rahg=527) RED CELL DISTRIBUTION WIDTH (BEAKER) (test 13.9 % 10.3-14.2 yqka=366) PLATELET COUNT (BEAKER) (test wowu=327) 71 K/CU MM 150-430 MEAN PLATELET VOLUME (BEAKER) (test onvu=107) 6.6 fL 6.5-10.5 NUCLEATED RED BLOOD CELLS (BEAKER) (test 0 /100 WBC 0-0 yktt=823) NEUTROPHILS RELATIVE PERCENT (BEAKER) (test 68 % qorl=194) LYMPHOCYTES RELATIVE PERCENT (BEAKER) (test 16 % alfy=166) MONOCYTES RELATIVE PERCENT (BEAKER) (test 12 % wxug=763) EOSINOPHILS RELATIVE PERCENT (BEAKER) (test 4 % wjdn=899) BASOPHILS RELATIVE PERCENT (BEAKER) (test 1 % dvtt=548) NEUTROPHILS ABSOLUTE COUNT (BEAKER) (test 3.21 K/ L 1.80-8.00 pspo=455) LYMPHOCYTES ABSOLUTE COUNT (BEAKER) (test 0.75 K/ L 1.48-4.50 rzbd=586) MONOCYTES ABSOLUTE COUNT (BEAKER) (test skvg=338) 0.57 K/ L 0.00-1.30 EOSINOPHILS ABSOLUTE COUNT (BEAKER) (test 0.19 K/ L 0.00-0.50 qaqs=129) BASOPHILS ABSOLUTE COUNT (BEAKER) (test twsb=882) 0.03 K/ L 0.00-0.20 0.00PROTHROMBIN [id number] 05:56:00 Test Item Value Reference Range Comments PROTIME (BEAKER) (test accg=896) 26.4 seconds 11.7-14.7 INR (BEAKER) (test witw=959) 2.4 <=5.9 RECOMMENDED COUMADIN/WARFARIN INR THERAPY RANGESSTANDARD DOSE: 2.0 - 3.0 Includes: PROPHYLAXIS forvenous thrombosis, systemic embolization; TREATMENT for venous thrombosis and/or pulmonary embolus.HIGH RISK: Target INR is 2.5-3.5 for patients with mechanical heart valves.BASIC METABOLIC [id number] 04:44: 00 Test Item Value Reference Range Comments SODIUM (BEAKER) (test 134 meq/L 136-145 ferr=560) POTASSIUM (BEAKER) (test 3.6 meq/L 3.5-5.1 imum=411) CHLORIDE (BEAKER) (test 108 meq/L 98-107 been=507) CO2 (BEAKER) (test 19 meq/L 22-29 pwvd=519) BLOOD UREA NITROGEN 12 mg/dL 7-21 (BEAKER) (test vpuu=889) CREATININE (BEAKER) (test 1.32 mg/dL 0.57-1.25 xpds=245) GLUCOSE RANDOM (BEAKER) 82 mg/dL 70-105 (test bule=723) CALCIUM (BEAKER) (test 7.9 mg/dL 8.4-10.2 lzcw=172) EGFR (BEAKER) (test 57 mL/min/1.73 sq m ESTIMATED GFR IS NOT cpmt=1177) ACCURATE CREATININE CLEARANCE IN PREDICTING GLOMERULAR FILTRATION RATE. ESTIMATED GFR IS NOT APPLICABLE FOR DIALYSIS PATIENTS. Specimen moderately ictericHEPATIC FUNCTION [id number] 04:42:00 Test Item Value Reference Range Comments TOTAL PROTEIN (BEAKER) (test bihm=058) 5.8 gm/dL 6.0-8.3 ALBUMIN (BEAKER) (test spil=1437) 3.1 g/dL 3.5-5.0 BILIRUBIN TOTAL (BEAKER) (test esmv=575) 5.1 mg/dL 0.2-1.2 BILIRUBIN DIRECT (BEAKER) (test pody=790) 2.7 mg/dL 0.1-0.5 ALKALINE PHOSPHATASE (BEAKER) (test wnzt=603) 51 U/L 40-150 AST (SGOT) (BEAKER) (test klam=803) 27 U/L 5-34 ALT (SGPT) (BEAKER) (test oodv=889) 7 U/L 6-55 Specimen moderately ictericCBC W/PLT COUNT & AUTO [id number] 04: 35:00 Test Item Value Reference Range Comments WHITE BLOOD CELL COUNT (BEAKER) (test gzjx=670) 4.6 K/ L 4.0-10.0 RED BLOOD CELL COUNT (BEAKER) (test qrop=436) 2.06 M/ L 4.20-5.80 HEMOGLOBIN (BEAKER) (test gykt=231) 7.2 GM/DL 13.0-16.8 HEMATOCRIT (BEAKER) (test fygg=238) 21.5 % 40.0-50.0 MEAN CORPUSCULAR VOLUME (BEAKER) (test gwyy=699) 104.0 fL 82.0-98.0 MEAN CORPUSCULAR HEMOGLOBIN (BEAKER) (test 35.0 pg 27.0-33.0 edju=200) MEAN CORPUSCULAR HEMOGLOBIN CONC (BEAKER) (test 33.6 GM/DL 32.0-36.0 pnbt=777) RED CELL DISTRIBUTION WIDTH (BEAKER) (test 13.4 % 10.3-14.2 nszr=738) PLATELET COUNT (BEAKER) (test vtvm=532) 76 K/CU MM 150-430 MEAN PLATELET VOLUME (BEAKER) (test pwyd=997) 6.5 fL 6.5-10.5 NUCLEATED RED BLOOD CELLS (BEAKER) (test 0 /100 WBC 0-0 neuw=907) NEUTROPHILS RELATIVE PERCENT (BEAKER) (test 64 % swka=529) LYMPHOCYTES RELATIVE PERCENT (BEAKER) (test 16 % jvuo=586) MONOCYTES RELATIVE PERCENT (BEAKER) (test 16 % mbrs=679) EOSINOPHILS RELATIVE PERCENT (BEAKER) (test 4 % sdno=085) BASOPHILS RELATIVE PERCENT (BEAKER) (test 1 % bpnj=319) NEUTROPHILS ABSOLUTE COUNT (BEAKER) (test 2.89 K/ L 1.80-8.00 dvai=909) LYMPHOCYTES ABSOLUTE COUNT (BEAKER) (test 0.72 K/ L 1.48-4.50 euxu=479) MONOCYTES ABSOLUTE COUNT (BEAKER) (test exzh=776) 0.71 K/ L 0.00-1.30 EOSINOPHILS ABSOLUTE COUNT (BEAKER) (test 0.20 K/ L 0.00-0.50 cnhf=738) BASOPHILS ABSOLUTE COUNT (BEAKER) (test nwwh=288) 0.03 K/ L 0.00-0.20 0.00PROTHROMBIN [id number] 04:33:00 Test Item Value Reference Range Comments PROTIME (BEAKER) (test niod=660) 30.2 seconds 11.7-14.7 INR (BEAKER) (test dtuk=367) 2.9 <=5.9 RECOMMENDED COUMADIN/WARFARIN INR THERAPY RANGESSTANDARD DOSE: 2.0 - 3.0 Includes: PROPHYLAXIS forvenous thrombosis, systemic embolization; TREATMENT for venous thrombosis and/or pulmonary embolus.HIGH RISK: Target INR is 2.5-3.5 for patients with mechanical heart valves.VANCOMYCIN LEVEL, [id number] 17: 04:00 Test Item Value Reference Range Comments VANCOMYCIN TROUGH (BEAKER) (test hprh=889) 12.2 ug/mL 10.0-20.0 URINE [id number] 14:25:00 Test Item Value Reference Range Comments CULTURE (BEAKER) (test tzix=5416) No growth TSH/FREE T4 IF [id number] 14:22:00 Test Item Value Reference Range Comments THYROID STIMULATING HORMONE (BEAKER) (test 3.53 uIU/mL 0.35-4.94 joog=060) URINE [id number] 11:43:00 Test Item Value Reference Range Comments CULTURE (BEAKER) (test rqfq=2060) No growth CBC W/PLT COUNT & AUTO [id number] 07:55:00 Test Item Value Reference Range Comments WHITE BLOOD CELL COUNT (BEAKER) (test ggez=024) 4.5 K/ L 4.0-10.0 RED BLOOD CELL COUNT (BEAKER) (test wzgm=300) 2.06 M/ L 4.20-5.80 HEMOGLOBIN (BEAKER) (test ilfe=802) 7.1 GM/DL 13.0-16.8 HEMATOCRIT (BEAKER) (test iytu=006) 21.5 % 40.0-50.0 MEAN CORPUSCULAR VOLUME (BEAKER) (test vekk=603) 104.0 fL 82.0-98.0 MEAN CORPUSCULAR HEMOGLOBIN (BEAKER) (test 34.5 pg 27.0-33.0 uaqz=106) MEAN CORPUSCULAR HEMOGLOBIN CONC (BEAKER) (test 33.1 GM/DL 32.0-36.0 varr=452) RED CELL DISTRIBUTION WIDTH (BEAKER) (test 13.4 % 10.3-14.2 bprc=717) PLATELET COUNT (BEAKER) (test cypx=292) 79 K/CU MM 150-430 MEAN PLATELET VOLUME (BEAKER) (test abuq=757) 6.8 fL 6.5-10.5 NUCLEATED RED BLOOD CELLS (BEAKER) (test 0 /100 WBC 0-0 ruey=798) NEUTROPHILS RELATIVE PERCENT (BEAKER) (test 64 % ineb=967) LYMPHOCYTES RELATIVE PERCENT (BEAKER) (test 16 % wrnn=601) MONOCYTES RELATIVE PERCENT (BEAKER) (test 15 % lznr=826) EOSINOPHILS RELATIVE PERCENT (BEAKER) (test 5 % otsk=376) BASOPHILS RELATIVE PERCENT (BEAKER) (test 0 % pgwe=396) NEUTROPHILS ABSOLUTE COUNT (BEAKER) (test 2.88 K/ L 1.80-8.00 kabu=536) LYMPHOCYTES ABSOLUTE COUNT (BEAKER) (test 0.73 K/ L 1.48-4.50 jxoy=716) MONOCYTES ABSOLUTE COUNT (BEAKER) (test mrst=537) 0.68 K/ L 0.00-1.30 EOSINOPHILS ABSOLUTE COUNT (BEAKER) (test 0.23 K/ L 0.00-0.50 lljb=440) BASOPHILS ABSOLUTE COUNT (BEAKER) (test vxbo=675) 0.02 K/ L 0.00-0.20 0.00BASIC METABOLIC [id number] 05:58:00 Test Item Value Reference Range Comments SODIUM (BEAKER) (test 137 meq/L 136-145 wabh=509) POTASSIUM (BEAKER) (test 3.7 meq/L 3.5-5.1 uyje=459) CHLORIDE (BEAKER) (test 110 meq/L 98-107 ialn=422) CO2 (BEAKER) (test 19 meq/L 22-29 ayjb=153) BLOOD UREA NITROGEN 12 mg/dL 7-21 (BEAKER) (test jmou=623) CREATININE (BEAKER) (test 1.29 mg/dL 0.57-1.25 rzjf=917) GLUCOSE RANDOM (BEAKER) 80 mg/dL 70-105 (test dbot=658) CALCIUM (BEAKER) (test 8.1 mg/dL 8.4-10.2 cefx=127) EGFR (BEAKER) (test 59 mL/min/1.73 sq m ESTIMATED GFR IS NOT qtkl=8859) ACCURATE CREATININE CLEARANCE IN PREDICTING GLOMERULAR FILTRATION RATE. ESTIMATED GFR IS NOT APPLICABLE FOR DIALYSIS PATIENTS. Specimen moderately ictericHEPATIC FUNCTION [id number] 05:58:00 Test Item Value Reference Range Comments TOTAL PROTEIN (BEAKER) (test nhud=261) 5.9 gm/dL 6.0-8.3 ALBUMIN (BEAKER) (test nqrz=2522) 3.4 g/dL 3.5-5.0 BILIRUBIN TOTAL (BEAKER) (test cynu=549) 5.6 mg/dL 0.2-1.2 BILIRUBIN DIRECT (BEAKER) (test srbz=766) 2.6 mg/dL 0.1-0.5 ALKALINE PHOSPHATASE (BEAKER) (test rore=861) 50 U/L 40-150 AST (SGOT) (BEAKER) (test ctmj=647) 30 U/L 5-34 ALT (SGPT) (BEAKER) (test kvdr=879) 9 U/L 6-55 Specimen moderately ictericPROTHROMBIN [id number] 05:31:00 Test Item Value Reference Range Comments PROTIME (BEAKER) (test wzrh=347) 29.0 seconds 11.7-14.7 INR (BEAKER) (test zqlp=712) 2.7 <=5.9 RECOMMENDED COUMADIN/WARFARIN INR THERAPY RANGESSTANDARD DOSE: 2.0 - 3.0 Includes: PROPHYLAXIS forvenous thrombosis, systemic embolization; TREATMENT for venous thrombosis and/or pulmonary embolus.HIGH RISK: Target INR is 2.5-3.5 for patients with mechanical heart valves.ANAEROBIC [id number] 05:15:00 Test Item Value Reference Range Comments CULTURE (BEAKER) (test deyy=6025) No anaerobes isolated BLOOD [id number] 00:00:00 Test Item Value Reference Range Comments CULTURE (BEAKER) (test kuby=5720) No growth in 5 days BLOOD [id number] 00:00:00 Test Item Value Reference Range Comments CULTURE (BEAKER) (test yudr=3146) No growth in 5 days URINALYSIS W/ REFLEX URINE [id number] 08:28:00 Test Item Value Reference Range Comments COLOR (BEAKER) (test wgtv=723) Yellow CLARITY (BEAKER) (test cmrd=327) Clear SPECIFIC GRAVITY UA (BEAKER) (test tbpg=757) 1.006 1.001-1.035 PH UA (BEAKER) (test bzqr=664) 6.5 5.0-8.0 PROTEIN UA (BEAKER) (test sxsb=868) Negative Negative GLUCOSE UA (BEAKER) (test xxjm=664) Negative Negative KETONES UA (BEAKER) (test vxsa=215) Negative Negative BILIRUBIN UA (BEAKER) (test smiu=348) Negative Negative BLOOD UA (BEAKER) (test dzmo=021) Negative Negative NITRITE UA (BEAKER) (test yhvw=725) Negative Negative LEUKOCYTE ESTERASE UA (BEAKER) (test clmx=697) Small Negative UROBILINOGEN UA (BEAKER) (test vowy=914) 0.2 mg/dL 0.2-1.0 RBC UA (BEAKER) (test quoi=965) 1 /HPF WBC UA (BEAKER) (test cuew=850) 6 /HPF BACTERIA (BEAKER) (test dqqw=781) Rare SOURCE(BEAKER) (test npda=3699) CBC W/PLT COUNT & AUTO [id number] 07:21:00 Test Item Value Reference Range Comments WHITE BLOOD CELL COUNT (BEAKER) (test lfki=080) 5.9 K/ L 4.0-10.0 RED BLOOD CELL COUNT (BEAKER) (test pphr=341) 2.12 M/ L 4.20-5.80 HEMOGLOBIN (BEAKER) (test iuhs=773) 7.3 GM/DL 13.0-16.8 HEMATOCRIT (BEAKER) (test jhph=195) 22.2 % 40.0-50.0 MEAN CORPUSCULAR VOLUME (BEAKER) (test zpeo=701) 105.0 fL 82.0-98.0 MEAN CORPUSCULAR HEMOGLOBIN (BEAKER) (test 34.2 pg 27.0-33.0 acgo=459) MEAN CORPUSCULAR HEMOGLOBIN CONC (BEAKER) (test 32.7 GM/DL 32.0-36.0 vdvt=850) RED CELL DISTRIBUTION WIDTH (BEAKER) (test 13.1 % 10.3-14.2 koea=048) PLATELET COUNT (BEAKER) (test hafl=930) 80 K/CU MM 150-430 MEAN PLATELET VOLUME (BEAKER) (test byne=991) 6.5 fL 6.5-10.5 NUCLEATED RED BLOOD CELLS (BEAKER) (test 0 /100 WBC 0-0 haou=976) NEUTROPHILS RELATIVE PERCENT (BEAKER) (test 67 % smok=490) LYMPHOCYTES RELATIVE PERCENT (BEAKER) (test 14 % mrte=602) MONOCYTES RELATIVE PERCENT (BEAKER) (test 14 % cafr=903) EOSINOPHILS RELATIVE PERCENT (BEAKER) (test 4 % wipe=840) BASOPHILS RELATIVE PERCENT (BEAKER) (test 0 % bzxp=068) NEUTROPHILS ABSOLUTE COUNT (BEAKER) (test 3.97 K/ L 1.80-8.00 cjgw=780) LYMPHOCYTES ABSOLUTE COUNT (BEAKER) (test 0.85 K/ L 1.48-4.50 zokr=473) MONOCYTES ABSOLUTE COUNT (BEAKER) (test hawr=479) 0.81 K/ L 0.00-1.30 EOSINOPHILS ABSOLUTE COUNT (BEAKER) (test 0.25 K/ L 0.00-0.50 dzng=100) BASOPHILS ABSOLUTE COUNT (BEAKER) (test kvbi=428) 0.03 K/ L 0.00-0.20 [id number] 06:35:00 Test Item Value Reference Range Comments PHOSPHORUS (BEAKER) (test dqks=086) 3.5 mg/dL 2.3-4.7 [id number] 06:35:00 Test Item Value Reference Range Comments MAGNESIUM (BEAKER) (test laia=762) 1.7 mg/dL 1.6-2.6 BASIC METABOLIC [id number] 06:35:00 Test Item Value Reference Range Comments SODIUM (BEAKER) (test 137 meq/L 136-145 xofa=851) POTASSIUM (BEAKER) (test 4.0 meq/L 3.5-5.1 gtvi=785) CHLORIDE (BEAKER) (test 109 meq/L 98-107 dpgi=846) CO2 (BEAKER) (test 20 meq/L 22-29 avfa=892) BLOOD UREA NITROGEN 13 mg/dL 7-21 (BEAKER) (test flst=535) CREATININE (BEAKER) (test 1.56 mg/dL 0.57-1.25 zciy=493) GLUCOSE RANDOM (BEAKER) 85 mg/dL 70-105 (test zagc=726) CALCIUM (BEAKER) (test 8.4 mg/dL 8.4-10.2 fkza=001) EGFR (BEAKER) (test 47 mL/min/1.73 sq m ESTIMATED GFR IS NOT mltf=6815) ACCURATE CREATININE CLEARANCE IN PREDICTING GLOMERULAR FILTRATION RATE. ESTIMATED GFR IS NOT APPLICABLE FOR DIALYSIS PATIENTS. Specimen moderately ictericHEPATIC FUNCTION [id number] 06:35:00 Test Item Value Reference Range Comments TOTAL PROTEIN (BEAKER) (test dgsa=863) 6.5 gm/dL 6.0-8.3 ALBUMIN (BEAKER) (test qfpo=9658) 3.8 g/dL 3.5-5.0 BILIRUBIN TOTAL (BEAKER) (test cptz=986) 6.1 mg/dL 0.2-1.2 BILIRUBIN DIRECT (BEAKER) (test ukyu=183) 2.9 mg/dL 0.1-0.5 ALKALINE PHOSPHATASE (BEAKER) (test sfuy=800) 54 U/L 40-150 AST (SGOT) (BEAKER) (test pene=878) 28 U/L 5-34 ALT (SGPT) (BEAKER) (test upnx=919) 7 U/L 6-55 Specimen moderately ictericPROTHROMBIN [id number] 06:06:00 Test Item Value Reference Range Comments PROTIME (BEAKER) (test ujcy=992) 26.1 seconds 11.7-14.7 INR (BEAKER) (test wyyo=511) 2.4 <=5.9 RECOMMENDED COUMADIN/WARFARIN INR THERAPY RANGESSTANDARD DOSE: 2.0 - 3.0 Includes: PROPHYLAXIS forvenous thrombosis, systemic embolization; TREATMENT for venous thrombosis and/or pulmonary embolus.HIGH RISK: Target INR is 2.5-3.5 for patients with mechanical heart valves.CALCIUM, [id number] 06:06:00 Test Item Value Reference Range Comments CALCIUM IONIZED (BEAKER) (test juoc=595) 1.06 mmol/L 1.12-1.27 PH, BLOOD (BEAKER) (test jtts=7074) 7.46 SURGICALLY OBTAINED CULTURE + GRAM [id number] 23:51:00 Test Item Value Reference Range Comments CULTURE (BEAKER) (test nrur=8579) No growth GRAM STAIN RESULT (BEAKER) (test 1+ WBCs ntck=6482) GRAM STAIN RESULT (BEAKER) (test No organisms seen urkd=43972) BODY FLUID CULTURE + GRAM [id number] 23:42:00 Test Item Value Reference Range Comments CULTURE (BEAKER) (test kpcv=9281) No growth GRAM STAIN RESULT (BEAKER) (test 1+ WBCs uvka=2273) GRAM STAIN RESULT (BEAKER) (test No organisms seen bgti=18501) BODY FLUID CELL COUNT WITH [id number] 19:59:00 Test Item Value Reference Range Comments APPEARANCE FLUID (BEAKER) (test kkdw=293) Hazy Clear COLOR FLUID (BEAKER) (test cwrk=272) Yellow Colorless, Straw RBC FLUID (BEAKER) (test htpj=134) 2435 /cu mm <=1 ADJUSTED WBC FLUID (BEAKER) (test keez=9592) 441 /cu mm <=5 LINING CELLS (BEAKER) (test rpgq=0943) 9 /cu mm <=1 NEUTROPHILS FLUID (BEAKER) (test funr=1986) 16 % LYMPHS FLUID (BEAKER) (test aqyy=062) 10 % MONO/MACROPHAGE FLUID (BEAKER) (test vwbf=770) 74 % EOSINOPHILS FLUID (BEAKER) (test ijof=498) 0 % BASO FLUID (BEAKER) (test lpao=858) 0 % CONTAINER BODY FLUID (BEAKER) (test eslk=3958) EDTA Tube [id number] 11:01:00 Test Item Value Reference Range Comments PROCALCITONIN (BEAKER) (test bfcu=0720) 0.25 ng/mL <0.05 SEPSIS RISK (ng/mL)Low: 0.05-0.50Intermediate: 0.51-2.00High: & gt;=2.01CBC W/PLT COUNT & AUTO [id number] 08:40:00 Test Item Value Reference Range Comments WHITE BLOOD CELL COUNT (BEAKER) (test jvqr=577) 6.3 K/ L 4.0-10.0 RED BLOOD CELL COUNT (BEAKER) (test xfon=365) 2.07 M/ L 4.20-5.80 HEMOGLOBIN (BEAKER) (test bglk=119) 7.1 GM/DL 13.0-16.8 HEMATOCRIT (BEAKER) (test uqjq=648) 21.9 % 40.0-50.0 MEAN CORPUSCULAR VOLUME (BEAKER) (test vzdb=336) 106.0 fL 82.0-98.0 MEAN CORPUSCULAR HEMOGLOBIN (BEAKER) (test 34.1 pg 27.0-33.0 quku=119) MEAN CORPUSCULAR HEMOGLOBIN CONC (BEAKER) (test 32.2 GM/DL 32.0-36.0 awsr=139) RED CELL DISTRIBUTION WIDTH (BEAKER) (test 13.1 % 10.3-14.2 fodp=171) PLATELET COUNT (BEAKER) (test jxhw=105) 78 K/CU MM 150-430 MEAN PLATELET VOLUME (BEAKER) (test tkyi=022) 6.6 fL 6.5-10.5 NUCLEATED RED BLOOD CELLS (BEAKER) (test 0 /100 WBC 0-0 ymnl=899) NEUTROPHILS RELATIVE PERCENT (BEAKER) (test 73 % unzb=637) LYMPHOCYTES RELATIVE PERCENT (BEAKER) (test 10 % lfcc=394) MONOCYTES RELATIVE PERCENT (BEAKER) (test 13 % rcni=641) EOSINOPHILS RELATIVE PERCENT (BEAKER) (test 4 % adrt=752) BASOPHILS RELATIVE PERCENT (BEAKER) (test 0 % ansk=979) NEUTROPHILS ABSOLUTE COUNT (BEAKER) (test 4.60 K/ L 1.80-8.00 awpi=831) LYMPHOCYTES ABSOLUTE COUNT (BEAKER) (test 0.64 K/ L 1.48-4.50 rbvk=490) MONOCYTES ABSOLUTE COUNT (BEAKER) (test xamj=495) 0.81 K/ L 0.00-1.30 EOSINOPHILS ABSOLUTE COUNT (BEAKER) (test 0.23 K/ L 0.00-0.50 lfgv=913) BASOPHILS ABSOLUTE COUNT (BEAKER) (test gvza=991) 0.01 K/ L 0.00-0.20 [id number] 06:50:00 Test Item Value Reference Range Comments PHOSPHORUS (BEAKER) (test dbpv=508) 3.0 mg/dL 2.3-4.7 [id number] 06:50:00 Test Item Value Reference Range Comments MAGNESIUM (BEAKER) (test auaf=897) 1.9 mg/dL 1.6-2.6 BASIC METABOLIC [id number] 06:50:00 Test Item Value Reference Range Comments SODIUM (BEAKER) (test 135 meq/L 136-145 cvhh=035) POTASSIUM (BEAKER) (test 4.2 meq/L 3.5-5.1 usjj=301) CHLORIDE (BEAKER) (test 106 meq/L 98-107 dofq=388) CO2 (BEAKER) (test 21 meq/L 22-29 tqfg=236) BLOOD UREA NITROGEN 19 mg/dL 7-21 (BEAKER) (test hyuc=711) CREATININE (BEAKER) (test 1.62 mg/dL 0.57-1.25 ljln=231) GLUCOSE RANDOM (BEAKER) 98 mg/dL 70-105 (test laaq=875) CALCIUM (BEAKER) (test 8.6 mg/dL 8.4-10.2 jacd=063) EGFR (BEAKER) (test 45 mL/min/1.73 sq m ESTIMATED GFR IS NOT fyzx=9553) ACCURATE CREATININE CLEARANCE IN PREDICTING GLOMERULAR FILTRATION RATE. ESTIMATED GFR IS NOT APPLICABLE FOR DIALYSIS PATIENTS. Specimen moderately ictericHEPATIC FUNCTION [id number] 06:50:00 Test Item Value Reference Range Comments TOTAL PROTEIN (BEAKER) (test epmg=788) 6.3 gm/dL 6.0-8.3 ALBUMIN (BEAKER) (test avlw=9683) 3.7 g/dL 3.5-5.0 BILIRUBIN TOTAL (BEAKER) (test uldm=370) 6.2 mg/dL 0.2-1.2 BILIRUBIN DIRECT (BEAKER) (test eqvk=665) 2.8 mg/dL 0.1-0.5 ALKALINE PHOSPHATASE (BEAKER) (test dacc=299) 54 U/L 40-150 AST (SGOT) (BEAKER) (test xoqf=635) 29 U/L 5-34 ALT (SGPT) (BEAKER) (test vpov=887) 8 U/L 6-55 Specimen moderately ictericCALCIUM, [id number] 06:48:00 Test Item Value Reference Range Comments CALCIUM IONIZED (BEAKER) (test tkme=553) 1.12 mmol/L 1.12-1.27 PH, BLOOD (BEAKER) (test gizc=9510) 7.33 PROTHROMBIN [id number] 06:24:00 Test Item Value Reference Range Comments PROTIME (BEAKER) (test unff=078) 25.4 seconds 11.7-14.7 INR (BEAKER) (test ukwa=717) 2.3 <=5.9 RECOMMENDED COUMADIN/WARFARIN INR THERAPY RANGESSTANDARD DOSE: 2.0 - 3.0 Includes: PROPHYLAXIS forvenous thrombosis, systemic embolization; TREATMENT for venous thrombosis and/or pulmonary embolus.HIGH RISK: Target INR is 2.5-3.5 for patients with mechanical heart valves.[id number] 11:17:00 Test Item Value Reference Range Comments FIBRINOGEN LEVEL (BEAKER) (test rrdw=442) 115 mg/dl 225-434 CALCIUM, [id number] 06:04:00 Test Item Value Reference Range Comments CALCIUM IONIZED (BEAKER) (test kizt=728) 1.08 mmol/L 1.12-1.27 PH, BLOOD (BEAKER) (test jrwz=5971) 7.41 CBC W/PLT COUNT & AUTO [id number] 05:28:00 Test Item Value Reference Range Comments WHITE BLOOD CELL COUNT (BEAKER) (test ders=552) 5.6 K/ L 4.0-10.0 RED BLOOD CELL COUNT (BEAKER) (test grzt=113) 2.00 M/ L 4.20-5.80 HEMOGLOBIN (BEAKER) (test fiww=636) 7.2 GM/DL 13.0-16.8 HEMATOCRIT (BEAKER) (test kwhg=492) 21.2 % 40.0-50.0 MEAN CORPUSCULAR VOLUME (BEAKER) (test uwxd=714) 106.0 fL 82.0-98.0 MEAN CORPUSCULAR HEMOGLOBIN (BEAKER) (test 36.0 pg 27.0-33.0 smti=050) MEAN CORPUSCULAR HEMOGLOBIN CONC (BEAKER) (test 34.0 GM/DL 32.0-36.0 sdql=570) RED CELL DISTRIBUTION WIDTH (BEAKER) (test 13.9 % 10.3-14.2 vrdr=877) PLATELET COUNT (BEAKER) (test gxdz=640) 74 K/CU MM 150-430 MEAN PLATELET VOLUME (BEAKER) (test zrfv=778) 6.6 fL 6.5-10.5 NUCLEATED RED BLOOD CELLS (BEAKER) (test 0 /100 WBC 0-0 vitb=178) NEUTROPHILS RELATIVE PERCENT (BEAKER) (test 66 % qyvf=025) LYMPHOCYTES RELATIVE PERCENT (BEAKER) (test 14 % srik=674) MONOCYTES RELATIVE PERCENT (BEAKER) (test 13 % virs=566) EOSINOPHILS RELATIVE PERCENT (BEAKER) (test 7 % pdsi=372) BASOPHILS RELATIVE PERCENT (BEAKER) (test 0 % ljyh=604) NEUTROPHILS ABSOLUTE COUNT (BEAKER) (test 3.67 K/ L 1.80-8.00 raoo=260) LYMPHOCYTES ABSOLUTE COUNT (BEAKER) (test 0.80 K/ L 1.48-4.50 hqmd=592) MONOCYTES ABSOLUTE COUNT (BEAKER) (test hcyv=139) 0.69 K/ L 0.00-1.30 EOSINOPHILS ABSOLUTE COUNT (BEAKER) (test 0.38 K/ L 0.00-0.50 jwjo=779) BASOPHILS ABSOLUTE COUNT (BEAKER) (test gzdq=876) 0.02 K/ L 0.00-0.20 0.00PROTHROMBIN [id number] 05:11:00 Test Item Value Reference Range Comments PROTIME (BEAKER) (test ucbs=594) 25.9 seconds 11.7-14.7 INR (BEAKER) (test ighn=254) 2.4 <=5.9 RECOMMENDED COUMADIN/WARFARIN INR THERAPY RANGESSTANDARD DOSE: 2.0 - 3.0 Includes: PROPHYLAXIS forvenous thrombosis, systemic embolization; TREATMENT for venous thrombosis and/or pulmonary embolus.HIGH RISK: Target INR is 2.5-3.5 for patients with mechanical heart valves.[id number] 05:03:00 Test Item Value Reference Range Comments PHOSPHORUS (BEAKER) (test seoe=133) 3.5 mg/dL 2.3-4.7 [id number] 05:03:00 Test Item Value Reference Range Comments MAGNESIUM (BEAKER) (test kusp=691) 1.7 mg/dL 1.6-2.6 BASIC METABOLIC [id number] 05:03:00 Test Item Value Reference Range Comments SODIUM (BEAKER) (test 135 meq/L 136-145 yhnk=968) POTASSIUM (BEAKER) (test 4.0 meq/L 3.5-5.1 cdvt=939) CHLORIDE (BEAKER) (test 107 meq/L 98-107 gvnt=621) CO2 (BEAKER) (test 20 meq/L 22-29 ukdn=438) BLOOD UREA NITROGEN 22 mg/dL 7-21 (BEAKER) (test fuyb=244) CREATININE (BEAKER) (test 1.77 mg/dL 0.57-1.25 ycuh=948) GLUCOSE RANDOM (BEAKER) 83 mg/dL 70-105 (test jfjh=997) CALCIUM (BEAKER) (test 8.3 mg/dL 8.4-10.2 ivpg=438) EGFR (BEAKER) (test 41 mL/min/1.73 sq m ESTIMATED GFR IS NOT dkpx=2391) ACCURATE CREATININE CLEARANCE IN PREDICTING GLOMERULAR FILTRATION RATE. ESTIMATED GFR IS NOT APPLICABLE FOR DIALYSIS PATIENTS. Specimen moderately ictericHEPATIC FUNCTION [id number] 05:03:00 Test Item Value Reference Range Comments TOTAL PROTEIN (BEAKER) (test csmw=061) 6.2 gm/dL 6.0-8.3 ALBUMIN (BEAKER) (test hjau=9990) 3.7 g/dL 3.5-5.0 BILIRUBIN TOTAL (BEAKER) (test egdn=451) 6.0 mg/dL 0.2-1.2 BILIRUBIN DIRECT (BEAKER) (test phxv=709) 2.6 mg/dL 0.1-0.5 ALKALINE PHOSPHATASE (BEAKER) (test vlug=548) 48 U/L 40-150 AST (SGOT) (BEAKER) (test jbog=378) 26 U/L 5-34 ALT (SGPT) (BEAKER) (test yaqj=539) 8 U/L 6-55 Specimen moderately ictericURINE [id number] 14:42:00 Test Item Value Reference Range Comments CULTURE (BEAKER) (test obbv=7948) No growth ANTI-NUCLEAR ANTIBODY (CHERYL)[id number] 13:32:00 Test Item Value Reference Range Comments ANTI-NUCLEAR ANTIBODY (CHERYL) (BEAKER) (test Negative Negative mtzj=657) PLATELET [id number] 06:30:00 Test Item Value Reference Range Comments PLATELET COUNT (BEAKER) (test unwb=563) 104 K/CU MM 150-430 [id number] 06:22:00 Test Item Value Reference Range Comments FIBRINOGEN LEVEL (BEAKER) (test ahlc=694) 106 mg/dl 225-434 [id number] 06:16:00 Test Item Value Reference Range Comments PARTIAL THROMBOPLASTIN TIME (BEAKER) (test 48.1 seconds 22.5-36.0 mruj=345) PROTHROMBIN [id number] 06:15:00 Test Item Value Reference Range Comments PROTIME (BEAKER) (test qldi=230) 23.5 seconds 11.7-14.7 INR (BEAKER) (test kfzd=430) 2.1 <=5.9 RECOMMENDED COUMADIN/WARFARIN INR THERAPY RANGESSTANDARD DOSE: 2.0 - 3.0 Includes: PROPHYLAXIS forvenous thrombosis, systemic embolization; TREATMENT for venous thrombosis and/or pulmonary embolus.HIGH RISK: Target INR is 2.5-3.5 for patients with mechanical heart valves.[id number] 06:12:00 Test Item Value Reference Range Comments MAGNESIUM (BEAKER) (test 2.0 mg/dL 1.6-2.6 Specimen slightly hemolyzed rnfg=265) [id number] 06:12:00 Test Item Value Reference Range Comments PHOSPHORUS (BEAKER) (test 5.0 mg/dL 2.3-4.7 Specimen slightly hemolyzed uxdr=078) BASIC METABOLIC [id number] 06:12:00 Test Item Value Reference Range Comments SODIUM (BEAKER) (test 135 meq/L 136-145 yqfm=296) POTASSIUM (BEAKER) (test 4.7 meq/L 3.5-5.1 Specimen slightly aphj=714) hemolyzed CHLORIDE (BEAKER) (test 107 meq/L 98-107 ghjl=652) CO2 (BEAKER) (test 20 meq/L 22-29 zxcg=365) BLOOD UREA NITROGEN 18 mg/dL 7-21 (BEAKER) (test klrm=342) CREATININE (BEAKER) (test 1.74 mg/dL 0.57-1.25 Specimen slightly fcjr=207) hemolyzed GLUCOSE RANDOM (BEAKER) 76 mg/dL 70-105 (test vcyk=976) CALCIUM (BEAKER) (test 8.1 mg/dL 8.4-10.2 xvre=774) EGFR (BEAKER) (test 42 mL/min/1.73 sq m ESTIMATED GFR IS NOT cqdt=9898) ACCURATE CREATININE CLEARANCE IN PREDICTING GLOMERULAR FILTRATION RATE. ESTIMATED GFR IS NOT APPLICABLE FOR DIALYSIS PATIENTS. Specimen moderately ictericHEPATIC FUNCTION [id number] 06:12:00 Test Item Value Reference Range Comments TOTAL PROTEIN (BEAKER) (test 6.6 gm/dL 6.0-8.3 Specimen slightly hemolyzed ijeo=221) ALBUMIN (BEAKER) (test 3.7 g/dL 3.5-5.0 Specimen slightly hemolyzed qpsk=7342) BILIRUBIN TOTAL (BEAKER) (test 5.7 mg/dL 0.2-1.2 Specimen slightly hemolyzed ponk=596) BILIRUBIN DIRECT (BEAKER) (test 2.7 mg/dL 0.1-0.5 Specimen slightly hemolyzed lhuw=708) ALKALINE PHOSPHATASE (BEAKER) 56 U/L 40-150 (test rgqb=131) AST (SGOT) (BEAKER) (test 29 U/L 5-34 Specimen slightly hemolyzed ojcp=728) ALT (SGPT) (BEAKER) (test 7 U/L 6-55 Specimen slightly hemolyzed eocq=887) Specimen moderately ictericLACTIC ACID, VENOUS, WHOLE [id number] 06:04:00 Test Item Value Reference Range Comments LACTATE BLOOD VENOUS (2) (BEAKER) (test 1.0 mmol/L 0.5-2.2 smwr=4422) Effective 02/28/2016: Units/Reference Range ChangeNew: 0.5-2.2 mmol/L Previous: 5 -20 mg/dLSpecimen moderately ictericCALCIUM, [id number] 05:56:00 Test Item Value Reference Range Comments CALCIUM IONIZED (BEAKER) (test wljc=727) 1.00 mmol/L 1.12-1.27 PH, BLOOD (BEAKER) (test ynhn=2905) 7.34 [id number] 21:34:00 Test Item Value Reference Range Comments FIBRINOGEN LEVEL (BEAKER) (test sdop=859) 105 mg/dl 225-434 PLATELET [id number] 20:52:00 Test Item Value Reference Range Comments PLATELET COUNT (BEAKER) (test xnvw=315) 77 K/CU MM 150-430 [id number] 20:51:00 Test Item Value Reference Range Comments PROTIME (BEAKER) (test eapx=132) 21.1 seconds 11.7-14.7 INR (BEAKER) (test nmyd=304) 1.8 <=5.9 PARTIAL THROMBOPLASTIN TIME (BEAKER) (test 47.3 seconds 22.5-36.0 lnqt=487) RECOMMENDED COUMADIN/WARFARIN INR THERAPY RANGESSTANDARD DOSE: 2.0 - 3.0 Includes: PROPHYLAXIS forvenous thrombosis, systemic embolization; TREATMENT for venous thrombosis and/or pulmonary embolus.HIGH RISK: Target INR is 2.5-3.5 for patients with mechanical heart valves.[id number] 20:51:00 Test Item Value Reference Range Comments PARTIAL THROMBOPLASTIN TIME (BEAKER) (test 47.3 seconds 22.5-36.0 dcfe=229) PROTHROMBIN [id number] 20:50:00 Test Item Value Reference Range Comments PROTIME (BEAKER) (test arpw=307) 21.1 seconds 11.7-14.7 INR (BEAKER) (test vwpn=021) 1.8 <=5.9 RECOMMENDED COUMADIN/WARFARIN INR THERAPY RANGESSTANDARD DOSE: 2.0 - 3.0 Includes: PROPHYLAXIS forvenous thrombosis, systemic embolization; TREATMENT for venous thrombosis and/or pulmonary embolus.HIGH RISK: Target INR is 2.5-3.5 for patients with mechanical heart valves.[id number] 19:30:00 Test Item Value Reference Range Comments PARTIAL THROMBOPLASTIN TIME (BEAKER) (test 45.1 seconds 22.5-36.0 lfgj=933) PROTHROMBIN [id number] 19:29:00 Test Item Value Reference Range Comments PROTIME (BEAKER) (test siad=161) 28.2 seconds 11.7-14.7 INR (BEAKER) (test hcki=602) 2.6 <=5.9 RECOMMENDED COUMADIN/WARFARIN INR THERAPY RANGESSTANDARD DOSE: 2.0 - 3.0 Includes: PROPHYLAXIS forvenous thrombosis, systemic embolization; TREATMENT for venous thrombosis and/or pulmonary embolus.HIGH RISK: Target INR is 2.5-3.5 for patients with mechanical heart valves.BODY FLUID CELL COUNT WITH [id number] 18:53:00 Test Item Value Reference Range Comments APPEARANCE FLUID (BEAKER) (test clve=768) Hazy Clear COLOR FLUID (BEAKER) (test hghy=855) Yellow Colorless, Straw RBC FLUID (BEAKER) (test ywkx=451) 900 /cu mm <=1 ADJUSTED WBC FLUID (BEAKER) (test nvrs=9676) 306 /cu mm <=5 LINING CELLS (BEAKER) (test gmqg=1062) 64 /cu mm <=1 NEUTROPHILS FLUID (BEAKER) (test xaoa=8197) 4 % LYMPHS FLUID (BEAKER) (test rgpx=957) 18 % MONO/MACROPHAGE FLUID (BEAKER) (test rnbm=186) 78 % EOSINOPHILS FLUID (BEAKER) (test hois=740) 0 % BASO FLUID (BEAKER) (test tpec=583) 0 % CONTAINER BODY FLUID (BEAKER) (test zmvs=4229) EDTA Tube [id number] 16:56:00 Test Item Value Reference Range Comments AMYLASE (BEAKER) (test uyrq=475) 37 U/L 25-125 Specimen moderately ictericCOMPREHENSIVE METABOLIC [id number] 16:56:00 Test Item Value Reference Range Comments TOTAL PROTEIN (BEAKER) 6.1 gm/dL 6.0-8.3 (test wpgg=445) ALBUMIN (BEAKER) (test 3.2 g/dL 3.5-5.0 oaqk=6080) ALKALINE PHOSPHATASE 67 U/L 40-150 (BEAKER) (test iaht=940) BILIRUBIN TOTAL (BEAKER) 5.7 mg/dL 0.2-1.2 (test vndm=678) SODIUM (BEAKER) (test 134 meq/L 136-145 bowi=630) POTASSIUM (BEAKER) (test 3.8 meq/L 3.5-5.1 opqb=806) CHLORIDE (BEAKER) (test 106 meq/L 98-107 ftxh=968) CO2 (BEAKER) (test 19 meq/L 22-29 oigp=348) BLOOD UREA NITROGEN 18 mg/dL 7-21 (BEAKER) (test oydv=044) CREATININE (BEAKER) (test 1.52 mg/dL 0.57-1.25 ennu=955) GLUCOSE RANDOM (BEAKER) 112 mg/dL 70-105 (test idja=558) CALCIUM (BEAKER) (test 8.3 mg/dL 8.4-10.2 upaq=805) AST (SGOT) (BEAKER) (test 28 U/L 5-34 pbtj=874) ALT (SGPT) (BEAKER) (test 10 U/L 6-55 ksyt=696) EGFR (BEAKER) (test 49 mL/min/1.73 sq m ESTIMATED GFR IS NOT gyag=2840) ACCURATE CREATININE CLEARANCE IN PREDICTING GLOMERULAR FILTRATION RATE. ESTIMATED GFR IS NOT APPLICABLE FOR DIALYSIS PATIENTS. Specimen moderately [id number] 16:56:00 Test Item Value Reference Range Comments LIPASE (BEAKER) (test qzic=743) 52 U/L 8-78 Specimen moderately ictericCBC W/PLT COUNT & AUTO [id number] 16: 27:00 Test Item Value Reference Range Comments WHITE BLOOD CELL COUNT (BEAKER) (test nnrf=112) 3.7 K/ L 4.0-10.0 RED BLOOD CELL COUNT (BEAKER) (test vozn=915) 2.16 M/ L 4.20-5.80 HEMOGLOBIN (BEAKER) (test cdgr=124) 7.8 GM/DL 13.0-16.8 HEMATOCRIT (BEAKER) (test dvfo=826) 23.1 % 40.0-50.0 MEAN CORPUSCULAR VOLUME (BEAKER) (test jxro=060) 107.0 fL 82.0-98.0 MEAN CORPUSCULAR HEMOGLOBIN (BEAKER) (test 36.0 pg 27.0-33.0 hzsn=219) MEAN CORPUSCULAR HEMOGLOBIN CONC (BEAKER) (test 33.6 GM/DL 32.0-36.0 ijmw=629) RED CELL DISTRIBUTION WIDTH (BEAKER) (test 13.9 % 10.3-14.2 tisw=435) PLATELET COUNT (BEAKER) (test uafv=385) 78 K/CU MM 150-430 MEAN PLATELET VOLUME (BEAKER) (test wsrp=884) 6.2 fL 6.5-10.5 NUCLEATED RED BLOOD CELLS (BEAKER) (test 0 /100 WBC 0-0 rony=592) NEUTROPHILS RELATIVE PERCENT (BEAKER) (test 50 % xgct=231) LYMPHOCYTES RELATIVE PERCENT (BEAKER) (test 25 % hjxh=658) MONOCYTES RELATIVE PERCENT (BEAKER) (test 19 % qfnn=475) EOSINOPHILS RELATIVE PERCENT (BEAKER) (test 6 % taev=879) BASOPHILS RELATIVE PERCENT (BEAKER) (test 1 % gdur=743) NEUTROPHILS ABSOLUTE COUNT (BEAKER) (test 1.82 K/ L 1.80-8.00 nwpb=853) LYMPHOCYTES ABSOLUTE COUNT (BEAKER) (test 0.91 K/ L 1.48-4.50 vflv=531) MONOCYTES ABSOLUTE COUNT (BEAKER) (test pqga=527) 0.69 K/ L 0.00-1.30 EOSINOPHILS ABSOLUTE COUNT (BEAKER) (test 0.21 K/ L 0.00-0.50 nxaw=715) BASOPHILS ABSOLUTE COUNT (BEAKER) (test dcwb=042) 0.02 K/ L 0.00-0.20 0.00HEPATIC FUNCTION [id number] 08:34:00 Test Item Value Reference Range Comments TOTAL PROTEIN (BEAKER) (test fxor=848) 5.9 gm/dL 6.0-8.3 ALBUMIN (BEAKER) (test dnsl=0885) 3.2 g/dL 3.5-5.0 BILIRUBIN TOTAL (BEAKER) (test duuh=000) 5.4 mg/dL 0.2-1.2 BILIRUBIN DIRECT (BEAKER) (test slcc=672) 2.5 mg/dL 0.1-0.5 ALKALINE PHOSPHATASE (BEAKER) (test zsol=452) 60 U/L 40-150 AST (SGOT) (BEAKER) (test ljxc=662) 28 U/L 5-34 ALT (SGPT) (BEAKER) (test nuug=773) 10 U/L 6-55 Specimen moderately [id number] 08:16:00 Test Item Value Reference Range Comments PHOSPHORUS (BEAKER) (test uvft=320) 3.0 mg/dL 2.3-4.7 [id number] 08:16:00 Test Item Value Reference Range Comments MAGNESIUM (BEAKER) (test czom=390) 1.6 mg/dL 1.6-2.6 BASIC METABOLIC [id number] 08:16:00 Test Item Value Reference Range Comments SODIUM (BEAKER) (test 133 meq/L 136-145 zlnk=283) POTASSIUM (BEAKER) (test 3.6 meq/L 3.5-5.1 eeke=861) CHLORIDE (BEAKER) (test 105 meq/L 98-107 zdbm=958) CO2 (BEAKER) (test 20 meq/L 22-29 obru=251) BLOOD UREA NITROGEN 18 mg/dL 7-21 (BEAKER) (test jrvi=917) CREATININE (BEAKER) (test 1.54 mg/dL 0.57-1.25 uxnu=844) GLUCOSE RANDOM (BEAKER) 70 mg/dL 70-105 (test binv=559) CALCIUM (BEAKER) (test 8.2 mg/dL 8.4-10.2 mgdz=201) EGFR (BEAKER) (test 48 mL/min/1.73 sq m ESTIMATED GFR IS NOT uwnr=5283) ACCURATE CREATININE CLEARANCE IN PREDICTING GLOMERULAR FILTRATION RATE. ESTIMATED GFR IS NOT APPLICABLE FOR DIALYSIS PATIENTS. Specimen moderately ictericCBC W/PLT COUNT & AUTO [id number] 08: 06:00 Test Item Value Reference Range Comments WHITE BLOOD CELL COUNT (BEAKER) (test lfrk=851) 3.4 K/ L 4.0-10.0 RED BLOOD CELL COUNT (BEAKER) (test kuut=573) 2.03 M/ L 4.20-5.80 HEMOGLOBIN (BEAKER) (test oscx=040) 7.3 GM/DL 13.0-16.8 HEMATOCRIT (BEAKER) (test rpxt=495) 21.6 % 40.0-50.0 MEAN CORPUSCULAR VOLUME (BEAKER) (test anre=124) 106.0 fL 82.0-98.0 MEAN CORPUSCULAR HEMOGLOBIN (BEAKER) (test 35.8 pg 27.0-33.0 rhtx=438) MEAN CORPUSCULAR HEMOGLOBIN CONC (BEAKER) (test 33.7 GM/DL 32.0-36.0 xkok=675) RED CELL DISTRIBUTION WIDTH (BEAKER) (test 13.5 % 10.3-14.2 qyvq=191) PLATELET COUNT (BEAKER) (test wqds=926) 82 K/CU MM 150-430 MEAN PLATELET VOLUME (BEAKER) (test fxil=010) 6.7 fL 6.5-10.5 NUCLEATED RED BLOOD CELLS (BEAKER) (test 0 /100 WBC 0-0 elbu=168) NEUTROPHILS RELATIVE PERCENT (BEAKER) (test 50 % ypcd=234) LYMPHOCYTES RELATIVE PERCENT (BEAKER) (test 25 % zjvd=694) MONOCYTES RELATIVE PERCENT (BEAKER) (test 19 % jmgd=042) EOSINOPHILS RELATIVE PERCENT (BEAKER) (test 5 % tufm=032) BASOPHILS RELATIVE PERCENT (BEAKER) (test 1 % enck=918) NEUTROPHILS ABSOLUTE COUNT (BEAKER) (test 1.69 K/ L 1.80-8.00 ljko=807) LYMPHOCYTES ABSOLUTE COUNT (BEAKER) (test 0.83 K/ L 1.48-4.50 ktwo=005) MONOCYTES ABSOLUTE COUNT (BEAKER) (test abkh=297) 0.65 K/ L 0.00-1.30 EOSINOPHILS ABSOLUTE COUNT (BEAKER) (test 0.17 K/ L 0.00-0.50 wqcw=279) BASOPHILS ABSOLUTE COUNT (BEAKER) (test bspe=927) 0.04 K/ L 0.00-0.20 0.00PROTHROMBIN TIME/[id number] 08:01:00 Test Item Value Reference Range Comments PROTIME (BEAKER) (test jydj=958) 27.6 seconds 11.7-14.7 INR (BEAKER) (test adwa=115) 2.6 <=5.9 RECOMMENDED COUMADIN/WARFARIN INR THERAPY RANGESSTANDARD DOSE: 2.0 - 3.0 Includes: PROPHYLAXIS forvenous thrombosis, systemic embolization; TREATMENT for venous thrombosis and/or pulmonary embolus.HIGH RISK: Target INR is 2.5-3.5 for patients with mechanical heart valves.CALCIUM, [id number] 07:58:00 Test Item Value Reference Range Comments CALCIUM IONIZED (BEAKER) (test diob=104) 1.00 mmol/L 1.12-1.27 PH, BLOOD (BEAKER) (test oyjc=7790) 7.53 URINALYSIS W/ [id number] 18:42:00 Test Item Value Reference Range Comments COLOR (BEAKER) (test lwvk=728) Yellow CLARITY (BEAKER) (test ancc=412) Clear SPECIFIC GRAVITY UA (BEAKER) (test 1.009 1.001-1.035 wkpt=947) PH UA (BEAKER) (test xhdv=967) 7.5 5.0-8.0 PROTEIN UA (BEAKER) (test muos=199) Negative Negative GLUCOSE UA (BEAKER) (test uawo=109) Negative Negative KETONES UA (BEAKER) (test qheo=414) Negative Negative BILIRUBIN UA (BEAKER) (test aula=649) Negative Negative BLOOD UA (BEAKER) (test lfex=375) Negative Negative NITRITE UA (BEAKER) (test abba=192) Negative Negative LEUKOCYTE ESTERASE UA (BEAKER) (test Negative Negative bkpd=075) UROBILINOGEN UA (BEAKER) (test thiw=524) 3.0 mg/dL 0.2-1.0 RBC UA (BEAKER) (test togy=870) 6 /HPF WBC UA (BEAKER) (test vpff=242) 1 /HPF SOURCE(BEAKER) (test hcvj=0282) Urine, Clean Catch PROTHROMBIN [id number] 15:13:00 Test Item Value Reference Range Comments PROTIME (BEAKER) (test ntkg=059) 31.4 seconds 11.7-14.7 INR (BEAKER) (test ciio=562) 3.0 <=5.9 RECOMMENDED COUMADIN/WARFARIN INR THERAPY RANGESSTANDARD DOSE: 2.0 - 3.0 Includes: PROPHYLAXIS forvenous thrombosis, systemic embolization; TREATMENT for venous thrombosis and/or pulmonary embolus.HIGH RISK: Target INR is 2.5-3.5 for patients with mechanical heart valves.Draw after vitamin K administrationCBC W/PLT COUNT & AUTO [id number] 07:02:00 Test Item Value Reference Range Comments WHITE BLOOD CELL COUNT (BEAKER) (test kgkm=082) 3.0 K/ L 4.0-10.0 RED BLOOD CELL COUNT (BEAKER) (test ozjq=991) 2.21 M/ L 4.20-5.80 HEMOGLOBIN (BEAKER) (test shhr=509) 7.5 GM/DL 13.0-16.8 HEMATOCRIT (BEAKER) (test hnip=366) 23.5 % 40.0-50.0 MEAN CORPUSCULAR VOLUME (BEAKER) (test qtjj=753) 106.0 fL 82.0-98.0 MEAN CORPUSCULAR HEMOGLOBIN (BEAKER) (test 34.0 pg 27.0-33.0 zwgd=375) MEAN CORPUSCULAR HEMOGLOBIN CONC (BEAKER) (test 32.0 GM/DL 32.0-36.0 qxal=784) RED CELL DISTRIBUTION WIDTH (BEAKER) (test 13.0 % 10.3-14.2 upro=460) PLATELET COUNT (BEAKER) (test btvh=050) 81 K/CU MM 150-430 MEAN PLATELET VOLUME (BEAKER) (test zmqh=531) 6.3 fL 6.5-10.5 NUCLEATED RED BLOOD CELLS (BEAKER) (test 0 /100 WBC 0-0 qdwt=816) NEUTROPHILS RELATIVE PERCENT (BEAKER) (test 52 % uzso=469) LYMPHOCYTES RELATIVE PERCENT (BEAKER) (test 24 % admz=269) MONOCYTES RELATIVE PERCENT (BEAKER) (test 20 % dihp=662) EOSINOPHILS RELATIVE PERCENT (BEAKER) (test 3 % avch=807) BASOPHILS RELATIVE PERCENT (BEAKER) (test 1 % jrmf=059) NEUTROPHILS ABSOLUTE COUNT (BEAKER) (test 1.53 K/ L 1.80-8.00 mbir=812) LYMPHOCYTES ABSOLUTE COUNT (BEAKER) (test 0.71 K/ L 1.48-4.50 qmcd=453) MONOCYTES ABSOLUTE COUNT (BEAKER) (test olww=073) 0.60 K/ L 0.00-1.30 EOSINOPHILS ABSOLUTE COUNT (BEAKER) (test 0.10 K/ L 0.00-0.50 jxng=807) BASOPHILS ABSOLUTE COUNT (BEAKER) (test qpeb=431) 0.03 K/ L 0.00-0.20 0.00BASIC METABOLIC [id number] 06:29:00 Test Item Value Reference Range Comments SODIUM (BEAKER) (test 135 meq/L 136-145 aaso=079) POTASSIUM (BEAKER) (test 4.0 meq/L 3.5-5.1 irzf=067) CHLORIDE (BEAKER) (test 106 meq/L 98-107 bacu=513) CO2 (BEAKER) (test 22 meq/L 22-29 yrnr=145) BLOOD UREA NITROGEN 17 mg/dL 7-21 (BEAKER) (test ruax=015) CREATININE (BEAKER) (test 1.46 mg/dL 0.57-1.25 dblr=856) GLUCOSE RANDOM (BEAKER) 75 mg/dL 70-105 (test ztyx=619) CALCIUM (BEAKER) (test 8.0 mg/dL 8.4-10.2 shjc=658) EGFR (BEAKER) (test 51 mL/min/1.73 sq m ESTIMATED GFR IS NOT tuah=2700) ACCURATE CREATININE CLEARANCE IN PREDICTING GLOMERULAR FILTRATION RATE. ESTIMATED GFR IS NOT APPLICABLE FOR DIALYSIS PATIENTS. Specimen moderately ictericHEPATIC FUNCTION [id number] 06:29:00 Test Item Value Reference Range Comments TOTAL PROTEIN (BEAKER) (test sile=922) 5.9 gm/dL 6.0-8.3 ALBUMIN (BEAKER) (test fpkw=0009) 3.0 g/dL 3.5-5.0 BILIRUBIN TOTAL (BEAKER) (test yrhp=824) 5.4 mg/dL 0.2-1.2 BILIRUBIN DIRECT (BEAKER) (test wjwb=994) 2.7 mg/dL 0.1-0.5 ALKALINE PHOSPHATASE (BEAKER) (test unlm=116) 65 U/L 40-150 AST (SGOT) (BEAKER) (test pean=414) 27 U/L 5-34 ALT (SGPT) (BEAKER) (test gqpp=857) 7 U/L 6-55 Specimen moderately ictericPROTHROMBIN [id number] 06:23:00 Test Item Value Reference Range Comments PROTIME (BEAKER) (test oggp=251) 31.2 seconds 11.7-14.7 INR (BEAKER) (test bust=270) 3.0 <=5.9 RECOMMENDED COUMADIN/WARFARIN INR THERAPY RANGESSTANDARD DOSE: 2.0 - 3.0 Includes: PROPHYLAXIS forvenous thrombosis, systemic embolization; TREATMENT for venous thrombosis and/or pulmonary embolus.HIGH RISK: Target INR is 2.5-3.5 for patients with mechanical heart valves.CBC W/PLT COUNT & AUTO [id number] 06:26:00 Test Item Value Reference Range Comments WHITE BLOOD CELL COUNT (BEAKER) (test wvtb=583) 3.0 K/ L 4.0-10.0 RED BLOOD CELL COUNT (BEAKER) (test hjqj=275) 2.16 M/ L 4.20-5.80 HEMOGLOBIN (BEAKER) (test blee=653) 7.4 GM/DL 13.0-16.8 HEMATOCRIT (BEAKER) (test thvw=230) 23.1 % 40.0-50.0 MEAN CORPUSCULAR VOLUME (BEAKER) (test vuto=034) 107.0 fL 82.0-98.0 MEAN CORPUSCULAR HEMOGLOBIN (BEAKER) (test 34.4 pg 27.0-33.0 bwav=100) MEAN CORPUSCULAR HEMOGLOBIN CONC (BEAKER) (test 32.1 GM/DL 32.0-36.0 gvtk=207) RED CELL DISTRIBUTION WIDTH (BEAKER) (test 13.1 % 10.3-14.2 ysie=161) PLATELET COUNT (BEAKER) (test umin=426) 72 K/CU MM 150-430 MEAN PLATELET VOLUME (BEAKER) (test euwp=137) 6.1 fL 6.5-10.5 NUCLEATED RED BLOOD CELLS (BEAKER) (test 0 /100 WBC 0-0 xrxu=107) NEUTROPHILS RELATIVE PERCENT (BEAKER) (test 58 % avcq=773) LYMPHOCYTES RELATIVE PERCENT (BEAKER) (test 21 % uyft=673) MONOCYTES RELATIVE PERCENT (BEAKER) (test 15 % etsx=287) EOSINOPHILS RELATIVE PERCENT (BEAKER) (test 4 % xduq=055) BASOPHILS RELATIVE PERCENT (BEAKER) (test 1 % zmsi=980) NEUTROPHILS ABSOLUTE COUNT (BEAKER) (test 1.73 K/ L 1.80-8.00 fjda=352) LYMPHOCYTES ABSOLUTE COUNT (BEAKER) (test 0.64 K/ L 1.48-4.50 sqku=094) MONOCYTES ABSOLUTE COUNT (BEAKER) (test ryxq=341) 0.45 K/ L 0.00-1.30 EOSINOPHILS ABSOLUTE COUNT (BEAKER) (test 0.13 K/ L 0.00-0.50 vzjq=525) BASOPHILS ABSOLUTE COUNT (BEAKER) (test sytf=494) 0.02 K/ L 0.00-0.20 0.00BASIC METABOLIC [id number] 06:24:00 Test Item Value Reference Range Comments SODIUM (BEAKER) (test 134 meq/L 136-145 eeou=315) POTASSIUM (BEAKER) (test 3.7 meq/L 3.5-5.1 fksp=103) CHLORIDE (BEAKER) (test 105 meq/L 98-107 bvzd=392) CO2 (BEAKER) (test 21 meq/L 22-29 latw=995) BLOOD UREA NITROGEN 18 mg/dL 7-21 (BEAKER) (test mqyh=054) CREATININE (BEAKER) (test 1.53 mg/dL 0.57-1.25 prfn=139) GLUCOSE RANDOM (BEAKER) 103 mg/dL 70-105 (test dpck=669) CALCIUM (BEAKER) (test 7.6 mg/dL 8.4-10.2 gijw=567) EGFR (BEAKER) (test 48 mL/min/1.73 sq m ESTIMATED GFR IS NOT ghfr=7816) ACCURATE CREATININE CLEARANCE IN PREDICTING GLOMERULAR FILTRATION RATE. ESTIMATED GFR IS NOT APPLICABLE FOR DIALYSIS PATIENTS. Specimen moderately ictericHEPATIC FUNCTION [id number] 06:19:00 Test Item Value Reference Range Comments TOTAL PROTEIN (BEAKER) (test tpta=597) 5.6 gm/dL 6.0-8.3 ALBUMIN (BEAKER) (test rwgj=1831) 2.4 g/dL 3.5-5.0 BILIRUBIN TOTAL (BEAKER) (test yhme=946) 4.8 mg/dL 0.2-1.2 BILIRUBIN DIRECT (BEAKER) (test aguc=448) 2.6 mg/dL 0.1-0.5 ALKALINE PHOSPHATASE (BEAKER) (test sdzm=279) 70 U/L 40-150 AST (SGOT) (BEAKER) (test qvfr=066) 28 U/L 5-34 ALT (SGPT) (BEAKER) (test jzwq=105) 11 U/L 6-55 Specimen moderately ictericPROTHROMBIN [id number] 06:00:00 Test Item Value Reference Range Comments PROTIME (BEAKER) (test wdop=749) 36.7 seconds 11.7-14.7 INR (BEAKER) (test dqkp=424) 3.7 <=5.9 RECOMMENDED COUMADIN/WARFARIN INR THERAPY RANGESSTANDARD DOSE: 2.0 - 3.0 Includes: PROPHYLAXIS forvenous thrombosis, systemic embolization; TREATMENT for venous thrombosis and/or pulmonary embolus.HIGH RISK: Target INR is 2.5-3.5 for patients with mechanical heart valves.BODY FLUID CULTURE + GRAM [id number] 00:51:00 Test Item Value Reference Range Comments CULTURE (BEAKER) (test kaxy=9975) No growth GRAM STAIN RESULT (BEAKER) (test 3+ WBCs vhxb=3860) GRAM STAIN RESULT (BEAKER) (test No organisms seen lyoy=26550) BLOOD [id number] 17:08:00 Test Item Value Reference Range Comments CULTURE (BEAKER) (test snug=6458) No growth in 5 days BLOOD [id number] 17:06:00 Test Item Value Reference Range Comments CULTURE (BEAKER) (test hfmh=3476) No growth in 5 days CBC W/PLT COUNT & AUTO [id number] 07:05:00 Test Item Value Reference Range Comments WHITE BLOOD CELL COUNT (BEAKER) (test tikf=796) 3.5 K/ L 4.0-10.0 RED BLOOD CELL COUNT (BEAKER) (test kmbk=767) 2.16 M/ L 4.20-5.80 HEMOGLOBIN (BEAKER) (test oxru=024) 7.8 GM/DL 13.0-16.8 HEMATOCRIT (BEAKER) (test gfxy=403) 23.9 % 40.0-50.0 MEAN CORPUSCULAR VOLUME (BEAKER) (test kjwn=760) 111.0 fL 82.0-98.0 MEAN CORPUSCULAR HEMOGLOBIN (BEAKER) (test 36.3 pg 27.0-33.0 dgio=289) MEAN CORPUSCULAR HEMOGLOBIN CONC (BEAKER) (test 32.8 GM/DL 32.0-36.0 sffb=380) RED CELL DISTRIBUTION WIDTH (BEAKER) (test 13.9 % 10.3-14.2 zpsb=091) PLATELET COUNT (BEAKER) (test rwov=029) 72 K/CU MM 150-430 MEAN PLATELET VOLUME (BEAKER) (test lwjf=025) 6.4 fL 6.5-10.5 NUCLEATED RED BLOOD CELLS (BEAKER) (test 0 /100 WBC 0-0 zvcb=428) NEUTROPHILS RELATIVE PERCENT (BEAKER) (test 51 % nkyu=216) LYMPHOCYTES RELATIVE PERCENT (BEAKER) (test 25 % mbtt=321) MONOCYTES RELATIVE PERCENT (BEAKER) (test 18 % yoez=840) EOSINOPHILS RELATIVE PERCENT (BEAKER) (test 6 % ajoz=302) BASOPHILS RELATIVE PERCENT (BEAKER) (test 0 % iulr=935) NEUTROPHILS ABSOLUTE COUNT (BEAKER) (test 1.77 K/ L 1.80-8.00 coce=045) LYMPHOCYTES ABSOLUTE COUNT (BEAKER) (test 0.87 K/ L 1.48-4.50 jimz=891) MONOCYTES ABSOLUTE COUNT (BEAKER) (test myvd=111) 0.62 K/ L 0.00-1.30 EOSINOPHILS ABSOLUTE COUNT (BEAKER) (test 0.22 K/ L 0.00-0.50 uomy=693) BASOPHILS ABSOLUTE COUNT (BEAKER) (test sbxb=848) 0.01 K/ L 0.00-0.20 0.00BASI METABOLIC [id number] 06:54:00 Test Item Value Reference Range Comments SODIUM (BEAKER) (test 137 meq/L 136-145 vgnq=744) POTASSIUM (BEAKER) (test 3.8 meq/L 3.5-5.1 dbgc=485) CHLORIDE (BEAKER) (test 109 meq/L 98-107 zaaf=281) CO2 (BEAKER) (test 21 meq/L 22-29 yvya=952) BLOOD UREA NITROGEN 17 mg/dL 7-21 (BEAKER) (test ange=500) CREATININE (BEAKER) (test 1.60 mg/dL 0.57-1.25 hkee=500) GLUCOSE RANDOM (BEAKER) 76 mg/dL 70-105 (test avpf=107) CALCIUM (BEAKER) (test 7.5 mg/dL 8.4-10.2 sntk=740) EGFR (BEAKER) (test 46 mL/min/1.73 sq m ESTIMATED GFR IS NOT xwzi=3173) ACCURATE CREATININE CLEARANCE IN PREDICTING GLOMERULAR FILTRATION RATE. ESTIMATED GFR IS NOT APPLICABLE FOR DIALYSIS PATIENTS. Specimen moderately ictericHEPATIC FUNCTION [id number] 06:53:00 Test Item Value Reference Range Comments TOTAL PROTEIN (BEAKER) (test iynb=363) 5.6 gm/dL 6.0-8.3 ALBUMIN (BEAKER) (test mlmd=8413) 2.4 g/dL 3.5-5.0 BILIRUBIN TOTAL (BEAKER) (test cpym=469) 4.5 mg/dL 0.2-1.2 BILIRUBIN DIRECT (BEAKER) (test caru=041) 2.7 mg/dL 0.1-0.5 ALKALINE PHOSPHATASE (BEAKER) (test yybh=795) 74 U/L 40-150 AST (SGOT) (BEAKER) (test bqlz=719) 36 U/L 5-34 ALT (SGPT) (BEAKER) (test pxps=899) 13 U/L 6-55 Specimen moderately ictericB-TYPE NATRIURETIC FACTOR (BNP)2017-02-08 06:52:00 Test Item Value Reference Range Comments B-TYPE NATRIURETIC PEPTIDE (BEAKER) (test 446 pg/mL 0-100 rgpr=184) PROTHROMBIN [id number] 06:36:00 Test Item Value Reference Range Comments PROTIME (BEAKER) (test nozj=400) 28.7 seconds 11.7-14.7 INR (BEAKER) (test mzgk=913) 2.7 <=5.9 RECOMMENDED COUMADIN/WARFARIN INR THERAPY RANGESSTANDARD DOSE: 2.0 - 3.0 Includes: PROPHYLAXIS forvenous thrombosis, systemic embolization; TREATMENT for venous thrombosis and/or pulmonary embolus.HIGH RISK: Target INR is 2.5-3.5 for patients with mechanical heart valves.EOSINOPHIL SMEAR, [id number] 21: 44:00 Test Item Value Reference Range Comments EOSINOPHIL SMEAR, URINE (BEAKER) (test No EOS seen No EOS seen jfxq=8796) CREATININE, RANDOM [id number] 18:02:00 Test Item Value Reference Range Comments CREATININE URINE (BEAKER) (test lcik=420) 96.3 mg/dL Reference Range: No NormalsSODIUM, RANDOM [id number] 18:02:00 Test Item Value Reference Range Comments SODIUM URINE (BEAKER) (test rlid=548) 58 meq/L Reference Range: No NormalsURINALYSIS W/ [id number] 17:33:00 Test Item Value Reference Range Comments COLOR (BEAKER) (test tvpn=928) Yellow CLARITY (BEAKER) (test xksa=103) Clear SPECIFIC GRAVITY UA (BEAKER) (test ofqm=413) 1.009 1.001-1.035 PH UA (BEAKER) (test hrgc=725) 6.0 5.0-8.0 PROTEIN UA (BEAKER) (test dbbf=249) Negative Negative GLUCOSE UA (BEAKER) (test kvue=238) Negative Negative KETONES UA (BEAKER) (test cflc=001) Negative Negative BILIRUBIN UA (BEAKER) (test fezs=545) Negative Negative BLOOD UA (BEAKER) (test jxdj=424) Negative Negative NITRITE UA (BEAKER) (test fspt=218) Negative Negative LEUKOCYTE ESTERASE UA (BEAKER) (test zpgb=105) Negative Negative UROBILINOGEN UA (BEAKER) (test ishh=306) 4.0 mg/dL 0.2-1.0 RBC UA (BEAKER) (test kdur=665) < /HPF WBC UA (BEAKER) (test nyjo=284) 2 /HPF BACTERIA (BEAKER) (test wiui=806) Rare SOURCE(BEAKER) (test vaku=8101) CBC W/PLT COUNT & AUTO [id number] 06:53:00 Test Item Value Reference Range Comments WHITE BLOOD CELL COUNT (BEAKER) (test yjex=906) 3.5 K/ L 4.0-10.0 RED BLOOD CELL COUNT (BEAKER) (test ugok=300) 2.17 M/ L 4.20-5.80 HEMOGLOBIN (BEAKER) (test kczo=708) 7.9 GM/DL 13.0-16.8 HEMATOCRIT (BEAKER) (test vdvr=394) 23.9 % 40.0-50.0 MEAN CORPUSCULAR VOLUME (BEAKER) (test bini=928) 110.0 fL 82.0-98.0 MEAN CORPUSCULAR HEMOGLOBIN (BEAKER) (test 36.1 pg 27.0-33.0 auks=269) MEAN CORPUSCULAR HEMOGLOBIN CONC (BEAKER) (test 32.9 GM/DL 32.0-36.0 nead=029) RED CELL DISTRIBUTION WIDTH (BEAKER) (test 14.0 % 10.3-14.2 uarr=490) PLATELET COUNT (BEAKER) (test rlvm=590) 77 K/CU MM 150-430 MEAN PLATELET VOLUME (BEAKER) (test uukt=437) 6.1 fL 6.5-10.5 NUCLEATED RED BLOOD CELLS (BEAKER) (test 0 /100 WBC 0-0 xugz=660) NEUTROPHILS RELATIVE PERCENT (BEAKER) (test 56 % hcdg=879) LYMPHOCYTES RELATIVE PERCENT (BEAKER) (test 20 % aaaq=085) MONOCYTES RELATIVE PERCENT (BEAKER) (test 18 % yzaa=843) EOSINOPHILS RELATIVE PERCENT (BEAKER) (test 6 % uddh=257) BASOPHILS RELATIVE PERCENT (BEAKER) (test 1 % qjia=445) NEUTROPHILS ABSOLUTE COUNT (BEAKER) (test 1.95 K/ L 1.80-8.00 zobx=859) LYMPHOCYTES ABSOLUTE COUNT (BEAKER) (test 0.69 K/ L 1.48-4.50 ddfh=452) MONOCYTES ABSOLUTE COUNT (BEAKER) (test nqux=025) 0.62 K/ L 0.00-1.30 EOSINOPHILS ABSOLUTE COUNT (BEAKER) (test 0.20 K/ L 0.00-0.50 heql=320) BASOPHILS ABSOLUTE COUNT (BEAKER) (test tgjp=093) 0.03 K/ L 0.00-0.20 0.00BASI METABOLIC [id number] 06:45:00 Test Item Value Reference Range Comments SODIUM (BEAKER) (test 134 meq/L 136-145 wznh=249) POTASSIUM (BEAKER) (test 3.6 meq/L 3.5-5.1 ittf=796) CHLORIDE (BEAKER) (test 106 meq/L 98-107 vkvm=342) CO2 (BEAKER) (test 21 meq/L 22-29 pzbq=845) BLOOD UREA NITROGEN 14 mg/dL 7-21 (BEAKER) (test fuvw=381) CREATININE (BEAKER) (test 1.33 mg/dL 0.57-1.25 tsve=593) GLUCOSE RANDOM (BEAKER) 71 mg/dL 70-105 (test ujuf=206) CALCIUM (BEAKER) (test 7.6 mg/dL 8.4-10.2 rcaf=013) EGFR (BEAKER) (test 57 mL/min/1.73 sq m ESTIMATED GFR IS NOT ubgo=6169) ACCURATE CREATININE CLEARANCE IN PREDICTING GLOMERULAR FILTRATION RATE. ESTIMATED GFR IS NOT APPLICABLE FOR DIALYSIS PATIENTS. Specimen moderately ictericHEPATIC FUNCTION [id number] 06:40:00 Test Item Value Reference Range Comments TOTAL PROTEIN (BEAKER) (test oamo=251) 5.6 gm/dL 6.0-8.3 ALBUMIN (BEAKER) (test agpe=3764) 2.1 g/dL 3.5-5.0 BILIRUBIN TOTAL (BEAKER) (test hlzz=594) 4.4 mg/dL 0.2-1.2 BILIRUBIN DIRECT (BEAKER) (test orzq=962) 2.9 mg/dL 0.1-0.5 ALKALINE PHOSPHATASE (BEAKER) (test niyz=293) 86 U/L 40-150 AST (SGOT) (BEAKER) (test dhno=317) 45 U/L 5-34 ALT (SGPT) (BEAKER) (test lzzi=699) 13 U/L 6-55 Specimen moderately ictericPROTHROMBIN [id number] 06:05:00 Test Item Value Reference Range Comments PROTIME (BEAKER) (test aqrc=330) 29.4 seconds 11.7-14.7 INR (BEAKER) (test fsbu=379) 2.8 <=5.9 RECOMMENDED COUMADIN/WARFARIN INR THERAPY RANGESSTANDARD DOSE: 2.0 - 3.0 Includes: PROPHYLAXIS forvenous thrombosis, systemic embolization; TREATMENT for venous thrombosis and/or pulmonary embolus.HIGH RISK: Target INR is 2.5-3.5 for patients with mechanical heart valves.BODY FLUID CELL COUNT WITH [id number] 20:51:00 Test Item Value Reference Range Comments APPEARANCE FLUID (BEAKER) (test ndko=106) Slightly Hazy Clear COLOR FLUID (BEAKER) (test sblm=228) Yellow Colorless, Straw RBC FLUID (BEAKER) (test wpso=205) 545 /cu mm <=1 ADJUSTED WBC FLUID (BEAKER) (test ztws=5909) 104 /cu mm <=5 LINING CELLS (BEAKER) (test fgre=0714) 1 /cu mm <=1 NEUTROPHILS FLUID (BEAKER) (test mxkc=0044) 3 % LYMPHS FLUID (BEAKER) (test wieg=158) 13 % MONO/MACROPHAGE FLUID (BEAKER) (test 84 % spgy=521) EOSINOPHILS FLUID (BEAKER) (test jgrx=976) 0 % BASO FLUID (BEAKER) (test uwrp=167) 0 % CONTAINER BODY FLUID (BEAKER) (test EDTA Tube flsh=4749) POCT-GLUCOSE [id number] 18:48:00 Test Item Value Reference Range Comments POC-GLUCOSE METER (BEAKER) 105 mg/dL 70-[address] [facility] [address] [facility] (test oyxv=0648) [facility] [address] BASIC METABOLIC [id number] 05:45:00 Test Item Value Reference Range Comments SODIUM (BEAKER) (test 133 meq/L 136-145 dabe=401) POTASSIUM (BEAKER) (test 4.3 meq/L 3.5-5.1 Specimen moderately utyb=164) hemolyzed CHLORIDE (BEAKER) (test 107 meq/L 98-107 pvaq=354) CO2 (BEAKER) (test 19 meq/L 22-29 unhn=852) BLOOD UREA NITROGEN 10 mg/dL 7-21 (BEAKER) (test briv=893) CREATININE (BEAKER) (test 0.86 mg/dL 0.57-1.25 Specimen moderately vupe=119) hemolyzed GLUCOSE RANDOM (BEAKER) 68 mg/dL 70-105 (test xtzw=666) CALCIUM (BEAKER) (test 7.5 mg/dL 8.4-10.2 hqhj=109) EGFR (BEAKER) (test 94 mL/min/1.73 sq m ESTIMATED GFR IS NOT vypi=2037) ACCURATE CREATININE CLEARANCE IN PREDICTING GLOMERULAR FILTRATION RATE. ESTIMATED GFR IS NOT APPLICABLE FOR DIALYSIS PATIENTS. Specimen slightly ictericHEPATIC FUNCTION [id number] 05:45:00 Test Item Value Reference Range Comments TOTAL PROTEIN (BEAKER) (test 5.9 gm/dL 6.0-8.3 Specimen moderately hemolyzed bcnj=101) ALBUMIN (BEAKER) (test 1.9 g/dL 3.5-5.0 Specimen moderately hemolyzed ezmc=6638) BILIRUBIN TOTAL (BEAKER) (test 4.4 mg/dL 0.2-1.2 Specimen moderately hemolyzed styi=220) BILIRUBIN DIRECT (BEAKER) 2.6 mg/dL 0.1-0.5 Specimen moderately hemolyzed (test bkrw=816) ALKALINE PHOSPHATASE (BEAKER) 86 U/L 40-150 (test kfos=673) AST (SGOT) (BEAKER) (test 74 U/L 5-34 Specimen moderately hemolyzed guzw=124) ALT (SGPT) (BEAKER) (test 17 U/L 6-55 Specimen moderately lltn=296) hemolyzed Specimen slightly ictericCBC W/PLT COUNT & AUTO [id number] 05:21 :00 Test Item Value Reference Range Comments WHITE BLOOD CELL COUNT (BEAKER) (test fwsh=742) 3.5 K/ L 4.0-10.0 RED BLOOD CELL COUNT (BEAKER) (test jazk=532) 2.06 M/ L 4.20-5.80 HEMOGLOBIN (BEAKER) (test yfxn=938) 7.9 GM/DL 13.0-16.8 HEMATOCRIT (BEAKER) (test uinn=455) 22.8 % 40.0-50.0 MEAN CORPUSCULAR VOLUME (BEAKER) (test ekyz=186) 110.0 fL 82.0-98.0 MEAN CORPUSCULAR HEMOGLOBIN (BEAKER) (test 38.2 pg 27.0-33.0 ufid=897) MEAN CORPUSCULAR HEMOGLOBIN CONC (BEAKER) (test 34.6 GM/DL 32.0-36.0 mrcc=094) RED CELL DISTRIBUTION WIDTH (BEAKER) (test 13.5 % 10.3-14.2 xhmm=277) PLATELET COUNT (BEAKER) (test fakj=396) 61 K/CU MM 150-430 MEAN PLATELET VOLUME (BEAKER) (test tmau=984) 6.8 fL 6.5-10.5 NUCLEATED RED BLOOD CELLS (BEAKER) (test 0 /100 WBC 0-0 vgdb=812) NEUTROPHILS RELATIVE PERCENT (BEAKER) (test 51 % xiog=823) LYMPHOCYTES RELATIVE PERCENT (BEAKER) (test 24 % vsvs=037) MONOCYTES RELATIVE PERCENT (BEAKER) (test 18 % iifo=450) EOSINOPHILS RELATIVE PERCENT (BEAKER) (test 7 % zgay=246) BASOPHILS RELATIVE PERCENT (BEAKER) (test 1 % iyei=702) NEUTROPHILS ABSOLUTE COUNT (BEAKER) (test 1.76 K/ L 1.80-8.00 zjhd=986) LYMPHOCYTES ABSOLUTE COUNT (BEAKER) (test 0.85 K/ L 1.48-4.50 icak=152) MONOCYTES ABSOLUTE COUNT (BEAKER) (test yvbn=880) 0.61 K/ L 0.00-1.30 EOSINOPHILS ABSOLUTE COUNT (BEAKER) (test 0.23 K/ L 0.00-0.50 uvej=635) BASOPHILS ABSOLUTE COUNT (BEAKER) (test hwqk=314) 0.02 K/ L 0.00-0.20 0.00PROTHROMBIN [id number] 05:19:00 Test Item Value Reference Range Comments PROTIME (BEAKER) (test coxc=667) 28.2 seconds 11.7-14.7 INR (BEAKER) (test sdpi=737) 2.6 <=5.9 RECOMMENDED COUMADIN/WARFARIN INR THERAPY RANGESSTANDARD DOSE: 2.0 - 3.0 Includes: PROPHYLAXIS forvenous thrombosis, systemic embolization; TREATMENT for venous thrombosis and/or pulmonary embolus.HIGH RISK: Target INR is 2.5-3.5 for patients with mechanical heart valves.BODY FLUID CULTURE + GRAM [id number] 14:14:00 Test Item Value Reference Range Comments CULTURE (BEAKER) (test stsz=1621) No growth GRAM STAIN RESULT (BEAKER) (test 2+ WBCs ldjl=2209) GRAM STAIN RESULT (BEAKER) (test No organisms seen xwgq=54833) CBC W/PLT COUNT & AUTO [id number] 10:28:00 Test Item Value Reference Range Comments WHITE BLOOD CELL COUNT (BEAKER) (test wiji=957) 3.6 K/ L 4.0-10.0 RED BLOOD CELL COUNT (BEAKER) (test uurr=170) 2.17 M/ L 4.20-5.80 HEMOGLOBIN (BEAKER) (test sytr=993) 7.7 GM/DL 13.0-16.8 HEMATOCRIT (BEAKER) (test iqjk=153) 23.8 % 40.0-50.0 MEAN CORPUSCULAR VOLUME (BEAKER) (test wgbh=115) 110.0 fL 82.0-98.0 MEAN CORPUSCULAR HEMOGLOBIN (BEAKER) (test 35.3 pg 27.0-33.0 qfla=919) MEAN CORPUSCULAR HEMOGLOBIN CONC (BEAKER) (test 32.1 GM/DL 32.0-36.0 szbb=820) RED CELL DISTRIBUTION WIDTH (BEAKER) (test 13.7 % 10.3-14.2 yvnd=557) PLATELET COUNT (BEAKER) (test iqyv=854) 62 K/CU MM 150-430 MEAN PLATELET VOLUME (BEAKER) (test qykw=497) 6.5 fL 6.5-10.5 NUCLEATED RED BLOOD CELLS (BEAKER) (test 0 /100 WBC 0-0 ldpy=335) NEUTROPHILS RELATIVE PERCENT (BEAKER) (test 58 % ghjy=729) LYMPHOCYTES RELATIVE PERCENT (BEAKER) (test 18 % pvff=305) MONOCYTES RELATIVE PERCENT (BEAKER) (test 17 % iegs=196) EOSINOPHILS RELATIVE PERCENT (BEAKER) (test 8 % znwi=065) BASOPHILS RELATIVE PERCENT (BEAKER) (test 0 % iiza=917) NEUTROPHILS ABSOLUTE COUNT (BEAKER) (test 2.10 K/ L 1.80-8.00 vqmz=830) LYMPHOCYTES ABSOLUTE COUNT (BEAKER) (test 0.63 K/ L 1.48-4.50 wrad=091) MONOCYTES ABSOLUTE COUNT (BEAKER) (test mfen=769) 0.59 K/ L 0.00-1.30 EOSINOPHILS ABSOLUTE COUNT (BEAKER) (test 0.28 K/ L 0.00-0.50 xbor=820) BASOPHILS ABSOLUTE COUNT (BEAKER) (test zxry=507) 0.00 K/ L 0.00-0.20 [id number] 10:16:00 Test Item Value Reference Range Comments PROCALCITONIN (BEAKER) (test tcfb=8269) < ng/mL <0.05 SEPSIS RISK (ng/mL)Low: 0.05-0.50Intermediate: 0.51-2.00High: & gt;=2.01HEPATIC FUNCTION [id number] 06:26:00 Test Item Value Reference Range Comments TOTAL PROTEIN (BEAKER) (test oikh=354) 5.6 gm/dL 6.0-8.3 ALBUMIN (BEAKER) (test yozs=8504) 1.9 g/dL 3.5-5.0 BILIRUBIN TOTAL (BEAKER) (test rpye=979) 4.7 mg/dL 0.2-1.2 BILIRUBIN DIRECT (BEAKER) (test flsw=647) 2.9 mg/dL 0.1-0.5 ALKALINE PHOSPHATASE (BEAKER) (test qmlg=359) 85 U/L 40-150 AST (SGOT) (BEAKER) (test hkjn=322) 53 U/L 5-34 ALT (SGPT) (BEAKER) (test gvdl=188) 14 U/L 6-55 Specimen moderately ictericBASIC METABOLIC [id number] 06:26:00 Test Item Value Reference Range Comments SODIUM (BEAKER) (test 134 meq/L 136-145 sseo=009) POTASSIUM (BEAKER) (test 3.8 meq/L 3.5-5.1 zafw=436) CHLORIDE (BEAKER) (test 107 meq/L 98-107 drwj=818) CO2 (BEAKER) (test 19 meq/L 22-29 qmxt=021) BLOOD UREA NITROGEN 8 mg/dL 7-21 (BEAKER) (test rtjs=272) CREATININE (BEAKER) (test 0.73 mg/dL 0.57-1.25 kiig=189) GLUCOSE RANDOM (BEAKER) 73 mg/dL 70-105 (test knxt=392) CALCIUM (BEAKER) (test 7.2 mg/dL 8.4-10.2 punw=661) EGFR (BEAKER) (test 113 mL/min/1.73 sq m ESTIMATED GFR IS NOT dzqm=6859) ACCURATE CREATININE CLEARANCE IN PREDICTING GLOMERULAR FILTRATION RATE. ESTIMATED GFR IS NOT APPLICABLE FOR DIALYSIS PATIENTS. Specimen moderately ictericPROTHROMBIN [id number] 06:05:00 Test Item Value Reference Range Comments PROTIME (BEAKER) (test acxi=041) 30.9 seconds 11.7-14.7 INR (BEAKER) (test jfun=534) 3.0 <=5.9 RECOMMENDED COUMADIN/WARFARIN INR THERAPY RANGESSTANDARD DOSE: 2.0 - 3.0 Includes: PROPHYLAXIS forvenous thrombosis, systemic embolization; TREATMENT for venous thrombosis and/or pulmonary embolus.HIGH RISK: Target INR is 2.5-3.5 for patients with mechanical heart valves.[id number] 05:54:00 Test Item Value Reference Range Comments PREALBUMIN (BEAKER) (test zsmc=856) < mg/dL 14-45 URINE [id number] 12:11:00 Test Item Value Reference Range Comments CULTURE (BEAKER) (test vriv=6565) No growth VANCOMYCIN LEVEL, [id number] 09:26:00 Test Item Value Reference Range Comments VANCOMYCIN TROUGH (BEAKER) (test zsok=078) 15.3 ug/mL 10.0-20.0 HEPATIC FUNCTION [id number] 06:17:00 Test Item Value Reference Range Comments TOTAL PROTEIN (BEAKER) (test msta=735) 5.6 gm/dL 6.0-8.3 ALBUMIN (BEAKER) (test lbvn=2112) 2.0 g/dL 3.5-5.0 BILIRUBIN TOTAL (BEAKER) (test rqeu=670) 4.2 mg/dL 0.2-1.2 BILIRUBIN DIRECT (BEAKER) (test xbuf=031) 2.7 mg/dL 0.1-0.5 ALKALINE PHOSPHATASE (BEAKER) (test jnah=906) 98 U/L 40-150 AST (SGOT) (BEAKER) (test ryem=566) 45 U/L 5-34 ALT (SGPT) (BEAKER) (test savc=667) 12 U/L 6-55 Specimen slightly ictericBASIC METABOLIC [id number] 06:17:00 Test Item Value Reference Range Comments SODIUM (BEAKER) (test 133 meq/L 136-145 hxng=238) POTASSIUM (BEAKER) (test 3.4 meq/L 3.5-5.1 zwid=957) CHLORIDE (BEAKER) (test 107 meq/L 98-107 kavq=462) CO2 (BEAKER) (test 22 meq/L 22-29 lebt=450) BLOOD UREA NITROGEN 7 mg/dL 7-21 (BEAKER) (test vwbz=929) CREATININE (BEAKER) (test 0.73 mg/dL 0.57-1.25 dcsi=443) GLUCOSE RANDOM (BEAKER) 87 mg/dL 70-105 (test sqyd=777) CALCIUM (BEAKER) (test 7.2 mg/dL 8.4-10.2 cgja=714) EGFR (BEAKER) (test 113 mL/min/1.73 sq m ESTIMATED GFR IS NOT huuw=7024) ACCURATE CREATININE CLEARANCE IN PREDICTING GLOMERULAR FILTRATION RATE. ESTIMATED GFR IS NOT APPLICABLE FOR DIALYSIS PATIENTS. Specimen slightly ictericPROTHROMBIN [id number] 06:04:00 Test Item Value Reference Range Comments PROTIME (BEAKER) (test gddz=546) 31.7 seconds 11.7-14.7 INR (BEAKER) (test fpkw=640) 3.0 <=5.9 RECOMMENDED COUMADIN/WARFARIN INR THERAPY RANGESSTANDARD DOSE: 2.0 - 3.0 Includes: PROPHYLAXIS forvenous thrombosis, systemic embolization; TREATMENT for venous thrombosis and/or pulmonary embolus.HIGH RISK: Target INR is 2.5-3.5 for patients with mechanical heart valves.VITAMIN B12 AND [id number] 19:36 :00 Test Item Value Reference Range Comments VITAMIN B12 (BEAKER) (test iyij=684) 1121 pg/mL 213-816 FOLATE (BEAKER) (test gsrj=128) 18.3 ng/mL >=7.0 Effective 09/13/2014: Folate Reference Range ChangeNew: >=7.0 Previous: & gt;=5.4VITAMIN B12 AND [id number] 14:57:00 Test Item Value Reference Range Comments VITAMIN B12 (BEAKER) (test ddvg=024) 1325 pg/mL 213-816 FOLATE (BEAKER) (test xrzq=707) 8.3 ng/mL >=7.0 Effective 09/13/2014: Folate Reference Range ChangeNew: >=7.0 Previous: & gt;=5.4ANTI-NUCLEAR ANTIBODY (CHERYL)2017-02-03 13:56:00 Test Item Value Reference Range Comments ANTI-NUCLEAR ANTIBODY (CHERYL) (BEAKER) (test Negative Negative milw=078) HEPATITIS B CORE ANTIBODY, [id number] 12:27:00 Test Item Value Reference Range Comments HEPATITIS B CORE TOTAL ANTIBODY (BEAKER) (test Nonreactive Nonreactive izlw=355) CRYPTOCOCCAL [id number] 11:25:00 Test Item Value Reference Range Comments CRYPTOCOCCAL ANTIGEN, SERUM (BEAKER) (test Negative Negative, Interference rzvy=3718) HEPATITIS B SURFACE [id number] 11:15:00 Test Item Value Reference Range Comments HEPATITIS B SURFACE ANTIBODY (BEAKER) (test < mIU/mL <8.0 jypv=602) HEPATITIS B SURFACE [id number] 09:53:00 Test Item Value Reference Range Comments HEPATITIS B SURFACE ANTIGEN (2) (BEAKER) (test Nonreactive Nonreactive sqkn=3022) HIV-1 ANTIGEN WITH HIV-1/2 [id number] 09:53:00 Test Item Value Reference Range Comments HIV-1 ANTIGEN WITH HIV 1\\T\\2 ANTIBODY (2) Nonreactive Nonreactive (BEAKER) (test ktjq=5044) HEPATIC FUNCTION [id number] 07:01:00 Test Item Value Reference Range Comments TOTAL PROTEIN (BEAKER) (test jmxc=316) 5.5 gm/dL 6.0-8.3 ALBUMIN (BEAKER) (test njgg=0106) 2.0 g/dL 3.5-5.0 BILIRUBIN TOTAL (BEAKER) (test pduk=983) 3.8 mg/dL 0.2-1.2 BILIRUBIN DIRECT (BEAKER) (test rwcg=855) 2.5 mg/dL 0.1-0.5 ALKALINE PHOSPHATASE (BEAKER) (test zxbt=797) 108 U/L 40-150 AST (SGOT) (BEAKER) (test fghy=962) 40 U/L 5-34 ALT (SGPT) (BEAKER) (test lbyi=128) 10 U/L 6-55 Specimen slightly ictericBASIC METABOLIC [id number] 07:01:00 Test Item Value Reference Range Comments SODIUM (BEAKER) (test 133 meq/L 136-145 mxzd=751) POTASSIUM (BEAKER) (test 3.7 meq/L 3.5-5.1 zkba=572) CHLORIDE (BEAKER) (test 108 meq/L 98-107 fuko=582) CO2 (BEAKER) (test 20 meq/L 22-29 wufu=939) BLOOD UREA NITROGEN 7 mg/dL 7-21 (BEAKER) (test qbhr=192) CREATININE (BEAKER) (test 0.76 mg/dL 0.57-1.25 tweb=902) GLUCOSE RANDOM (BEAKER) 100 mg/dL 70-105 (test ahtk=574) CALCIUM (BEAKER) (test 7.3 mg/dL 8.4-10.2 fmsb=075) EGFR (BEAKER) (test 108 mL/min/1.73 sq m ESTIMATED GFR IS NOT vvrh=3884) ACCURATE CREATININE CLEARANCE IN PREDICTING GLOMERULAR FILTRATION RATE. ESTIMATED GFR IS NOT APPLICABLE FOR DIALYSIS PATIENTS. Specimen slightly ictericCBC W/PLT COUNT & AUTO [id number] 06:53 :00 Test Item Value Reference Range Comments WHITE BLOOD CELL COUNT (BEAKER) (test smbp=314) 3.5 K/ L 4.0-10.0 RED BLOOD CELL COUNT (BEAKER) (test qhql=204) 1.83 M/ L 4.20-5.80 HEMOGLOBIN (BEAKER) (test atsv=202) 7.3 GM/DL 13.0-16.8 HEMATOCRIT (BEAKER) (test juen=936) 19.9 % 40.0-50.0 MEAN CORPUSCULAR VOLUME (BEAKER) (test rtbh=836) 109.0 fL 82.0-98.0 MEAN CORPUSCULAR HEMOGLOBIN (BEAKER) (test 39.9 pg 27.0-33.0 rohs=803) MEAN CORPUSCULAR HEMOGLOBIN CONC (BEAKER) (test 36.6 GM/DL 32.0-36.0 vqlp=736) RED CELL DISTRIBUTION WIDTH (BEAKER) (test 14.3 % 10.3-14.2 zptg=130) PLATELET COUNT (BEAKER) (test ulvq=842) 35 K/CU MM 150-430 MEAN PLATELET VOLUME (BEAKER) (test bdql=950) 6.6 fL 6.5-10.5 NUCLEATED RED BLOOD CELLS (BEAKER) (test 0 /100 WBC 0-0 amfq=497) NEUTROPHILS RELATIVE PERCENT (BEAKER) (test 60 % vlvo=309) LYMPHOCYTES RELATIVE PERCENT (BEAKER) (test 18 % mtls=241) MONOCYTES RELATIVE PERCENT (BEAKER) (test 17 % mshy=003) EOSINOPHILS RELATIVE PERCENT (BEAKER) (test 6 % pijo=410) BASOPHILS RELATIVE PERCENT (BEAKER) (test 0 % jlvp=634) NEUTROPHILS ABSOLUTE COUNT (BEAKER) (test 2.06 K/ L 1.80-8.00 hnrh=287) LYMPHOCYTES ABSOLUTE COUNT (BEAKER) (test 0.61 K/ L 1.48-4.50 uaws=615) MONOCYTES ABSOLUTE COUNT (BEAKER) (test paex=538) 0.58 K/ L 0.00-1.30 EOSINOPHILS ABSOLUTE COUNT (BEAKER) (test 0.19 K/ L 0.00-0.50 pfjq=509) BASOPHILS ABSOLUTE COUNT (BEAKER) (test smmy=840) 0.01 K/ L 0.00-0.20 0.00PROTHROMBIN [id number] 06:39:00 Test Item Value Reference Range Comments PROTIME (BEAKER) (test rjag=613) 30.6 seconds 11.7-14.7 INR (BEAKER) (test vbxj=246) 2.9 <=5.9 RECOMMENDED COUMADIN/WARFARIN INR THERAPY RANGESSTANDARD DOSE: 2.0 - 3.0 Includes: PROPHYLAXIS forvenous thrombosis, systemic embolization; TREATMENT for venous thrombosis and/or pulmonary embolus.HIGH RISK: Target INR is 2.5-3.5 for patients with mechanical heart valves.URINALYSIS W/ [id number] 16 :58:00 Test Item Value Reference Range Comments COLOR (BEAKER) (test ksgj=498) Yellow CLARITY (BEAKER) (test pqlk=351) Clear SPECIFIC GRAVITY UA (BEAKER) (test 1.025 1.001-1.035 mruh=097) PH UA (BEAKER) (test aszu=320) 7.0 5.0-8.0 PROTEIN UA (BEAKER) (test liiq=840) Negative Negative GLUCOSE UA (BEAKER) (test agtb=285) Negative Negative KETONES UA (BEAKER) (test pccx=694) Negative Negative BILIRUBIN UA (BEAKER) (test tlgh=669) Positive Negative BLOOD UA (BEAKER) (test wlkg=136) Negative Negative NITRITE UA (BEAKER) (test fnoh=196) Negative Negative LEUKOCYTE ESTERASE UA (BEAKER) (test Negative Negative bjxu=238) UROBILINOGEN UA (BEAKER) (test prju=636) 8.0 mg/dL 0.2-1.0 RBC UA (BEAKER) (test zpny=458) 0 /HPF WBC UA (BEAKER) (test ejfp=887) 2 /HPF MUCUS (BEAKER) (test edec=5266) Rare HYALINE CASTS (BEAKER) (test neim=207) 3 /LPF SOURCE(BEAKER) (test vtog=4155) Urine, Clean Catch [id number] 13:32:00 Test Item Value Reference Range Comments FERRITIN (BEAKER) (test gfyg=805) 116 ng/mL 5-275 Effective 09/13/2014: Reference Range ChangeNew: Male 5-275 Previous: Male 22-322 Female 5-275 Female 10-291HEPATITIS A ANTIBODY, [id number] 13:19:00 Test Item Value Reference Range Comments HEPATITIS A IGG ANTIBODY (BEAKER) (test idqs=7152) Reactive Nonreactive ALPHA FETOPROTEIN (AFP), TUMOR [id number] 13:17:00 Test Item Value Reference Range Comments ALPHA-FETOPROTEIN (BEAKER) (test tsaw=4157) 4.5 ng/mL <10.0 Effective 09/13/2014: Reference Range ChangeNew: <10.0 Previous: 0.0- 8.0HEPATITIS C [id number] 13:17:00 Test Item Value Reference Range Comments HEPATITIS C ANTIBODY (BEAKER) (test kbwz=110) Nonreactive Nonreactive BODY FLUID CELL COUNT WITH [id number] 13:03:00 Test Item Value Reference Range Comments APPEARANCE FLUID (BEAKER) (test jrkh=811) Cloudy Clear COLOR FLUID (BEAKER) (test kmvt=309) Yellow Colorless, Straw RBC FLUID (BEAKER) (test skcd=365) 1519 /cu mm <=1 ADJUSTED WBC FLUID (BEAKER) (test wkyh=7331) 108 /cu mm <=5 LINING CELLS (BEAKER) (test hgrz=7115) 14 /cu mm <=1 NEUTROPHILS FLUID (BEAKER) (test rkkz=4700) 11 % LYMPHS FLUID (BEAKER) (test fcte=170) 30 % MONO/MACROPHAGE FLUID (BEAKER) (test dfvh=760) 59 % EOSINOPHILS FLUID (BEAKER) (test tetc=032) 0 % BASO FLUID (BEAKER) (test paqb=642) 0 % CONTAINER BODY FLUID (BEAKER) (test wxpm=6717) EDTA Tube BASIC METABOLIC [id number] 12:56:00 Test Item Value Reference Range Comments SODIUM (BEAKER) (test 131 meq/L 136-145 hvlw=870) POTASSIUM (BEAKER) (test 4.0 meq/L 3.5-5.1 Specimen moderately eaha=874) hemolyzed CHLORIDE (BEAKER) (test 105 meq/L 98-107 kway=792) CO2 (BEAKER) (test 18 meq/L 22-29 efzo=758) BLOOD UREA NITROGEN 6 mg/dL 7-21 (BEAKER) (test ukbd=232) CREATININE (BEAKER) (test 0.72 mg/dL 0.57-1.25 Specimen moderately zrkb=703) hemolyzed GLUCOSE RANDOM (BEAKER) 103 mg/dL 70-105 (test dinr=037) CALCIUM (BEAKER) (test 7.4 mg/dL 8.4-10.2 wpkz=091) EGFR (BEAKER) (test 115 mL/min/1.73 sq m ESTIMATED GFR IS NOT soug=9630) ACCURATE CREATININE CLEARANCE IN PREDICTING GLOMERULAR FILTRATION RATE. ESTIMATED GFR IS NOT APPLICABLE FOR DIALYSIS PATIENTS. Specimen moderately ictericIRON, TIBC, % SAT. (WITHOUT FERRITIN)2017-02-02 12:56 :00 Test Item Value Reference Range Comments IRON (BEAKER) (test firb=507) 55 ug/dL 40-160 TOTAL IRON BINDING CAPACITY (BEAKER) (test 175 ug/dL 250-450 hjjk=456) IRON % SATURATION (2) (BEAKER) (test kwdf=6507) 31 % 20-55 HEPATIC FUNCTION [id number] 12:50:00 Test Item Value Reference Range Comments TOTAL PROTEIN (BEAKER) (test 6.7 gm/dL 6.0-8.3 Specimen moderately hemolyzed lfdt=929) ALBUMIN (BEAKER) (test 2.0 g/dL 3.5-5.0 Specimen moderately hemolyzed xfss=6177) BILIRUBIN TOTAL (BEAKER) (test 5.1 mg/dL 0.2-1.2 Specimen moderately hemolyzed bodu=807) BILIRUBIN DIRECT (BEAKER) 2.8 mg/dL 0.1-0.5 Specimen moderately hemolyzed (test mnzz=725) ALKALINE PHOSPHATASE (BEAKER) 99 U/L 40-150 (test gocr=104) AST (SGOT) (BEAKER) (test 62 U/L 5-34 Specimen moderately hemolyzed favv=710) ALT (SGPT) (BEAKER) (test 15 U/L 6-55 Specimen moderately eqwa=506) hemolyzed Specimen moderately ictericCBC W/PLT COUNT & AUTO [id number] 12: 47:00 Test Item Value Reference Range Comments WHITE BLOOD CELL COUNT (BEAKER) (test cyah=610) 3.3 K/ L 4.0-10.0 RED BLOOD CELL COUNT (BEAKER) (test jqrz=862) 2.08 M/ L 4.20-5.80 HEMOGLOBIN (BEAKER) (test kkeo=768) 7.8 GM/DL 13.0-16.8 HEMATOCRIT (BEAKER) (test glzq=630) 22.9 % 40.0-50.0 MEAN CORPUSCULAR VOLUME (BEAKER) (test hurn=801) 110.0 fL 82.0-98.0 MEAN CORPUSCULAR HEMOGLOBIN (BEAKER) (test 37.4 pg 27.0-33.0 paea=887) MEAN CORPUSCULAR HEMOGLOBIN CONC (BEAKER) (test 34.1 GM/DL 32.0-36.0 iceb=703) RED CELL DISTRIBUTION WIDTH (BEAKER) (test 15.0 % 10.3-14.2 kvxz=827) PLATELET COUNT (BEAKER) (test vvkr=973) 48 K/CU MM 150-430 MEAN PLATELET VOLUME (BEAKER) (test xqhg=153) 6.6 fL 6.5-10.5 NUCLEATED RED BLOOD CELLS (BEAKER) (test 0 /100 WBC 0-0 fxwy=012) NEUTROPHILS RELATIVE PERCENT (BEAKER) (test 62 % goog=497) LYMPHOCYTES RELATIVE PERCENT (BEAKER) (test 17 % xpjw=324) MONOCYTES RELATIVE PERCENT (BEAKER) (test 15 % gvbz=034) EOSINOPHILS RELATIVE PERCENT (BEAKER) (test 6 % gqni=544) BASOPHILS RELATIVE PERCENT (BEAKER) (test 0 % fqun=839) NEUTROPHILS ABSOLUTE COUNT (BEAKER) (test 2.03 K/ L 1.80-8.00 fxsk=070) LYMPHOCYTES ABSOLUTE COUNT (BEAKER) (test 0.57 K/ L 1.48-4.50 kqpr=483) MONOCYTES ABSOLUTE COUNT (BEAKER) (test rery=999) 0.48 K/ L 0.00-1.30 EOSINOPHILS ABSOLUTE COUNT (BEAKER) (test 0.19 K/ L 0.00-0.50 jfjq=968) BASOPHILS ABSOLUTE COUNT (BEAKER) (test liol=155) 0.01 K/ L 0.00-0.20 0.00PROTHROMBIN [id number] 12:42:00 Test Item Value Reference Range Comments PROTIME (BEAKER) (test caly=206) 27.0 seconds 11.7-14.7 INR (BEAKER) (test fimx=791) 2.5 <=5.9 RECOMMENDED COUMADIN/WARFARIN INR THERAPY RANGESSTANDARD DOSE: 2.0 - 3.0 Includes: PROPHYLAXIS forvenous thrombosis, systemic embolization; TREATMENT for venous thrombosis and/or pulmonary embolus.HIGH RISK: Target INR is 2.5-3.5 for patients with mechanical heart valves.ALBUMIN, BODY [id number] 11:46:00 Test Item Value Reference Range Comments ALBUMIN FLUID (BEAKER) (test wuzz=662) 0.5 gm/dL Reference Range: No Normals Assay performance has not been validated for this type of specimen.PROTEIN, BODY [id number] 11:42:00 Test Item Value Reference Range Comments PROTEIN FLUID (BEAKER) (test sexp=702) 1.3 g/dL Absence of reference range indicates that normals have not been defined.Assay performance has not been validated for this type of specimen.
--- OUTSIDE RECORDS SUMMARY | 2018-08-13 15:02 | XMS REPORT ---
[...] Status Dosage System Date Date Ondansetron HCl [facility] [place] 22994597363 4 MG Orally Active 1 tab every 8 hours as needed for Nausea and vomiting Hydrocortisone ND 36055573083 20 MG Orally AM Active 1 tablet Once a day with food or milk Magnesium Oxide ND 50019396644 400 MG Orally Active 1 tablet BID as needed Rifaximin [facility] [place] [address]-27 550 MG Orally Active 1 tablet Twice a day Pantoprazole ND 07383966962 40 MG Orally Active 1 tablet Sodium Once a day Sodium Chloride ND 96871203984 1 GM Orally TID Active 2 tablets Lactulose ND 01821033073 10 GM/15ML Active 15 ml Orally TID Ondansetron HCl [facility] [place] 24180180700 4 MG Active 1 TAB EVERY 8 HOURS NEEDED FOR NAUSEA AND VOMITING ORALLY 10 DAYS Citalopram [facility] 92659518619 40 MG Orally Active take one Hydrobromide once a day daily Hydrocortisone [facility] [place] 83813091108 10 MG Orally PM Active 1 tablet Once a day with food or milk NuFera [facility] [place] 10152422194 - Orally once a Active 1 tab day Citalopram [facility] 64660783326 10 MG Active TAKE ONE Hydrobromide DAILY Ursodiol [facility] [place] 06515958459 300 MG Orally Active not defined Midodrine HCl [facility] 50313816284 10 MG Orally Active 1 tablet Three times a day Results No Known Results Summary Purpose eClinicalWorks Submission
--- OUTSIDE RECORDS SUMMARY | 2018-08-13 15:02 | XMS REPORT ---
[...] Status Dosage System Date Date Midodrine HCl [facility] 80504686269 10 MG Orally Active 1 tablet Three times a day Pantoprazole [facility] 59177088591 40 MG Orally Active 1 tablet Sodium Once a day Sodium Chloride ND 72860718528 1 GM Orally TID Active 2 tablets Ondansetron HCl ND 58515240526 4 MG Orally Active 1 tab every 8 hours as needed for Nausea and vomiting Hydrocortisone ND 41172436876 20 MG Orally AM Active 1 tablet Once a day with food or milk Ursodiol ND 77797145307 300 MG Orally Active not defined Lactulose ND 65979532533 10 GM/15ML Active 15 ml Orally TID Citalopram [facility] 01360048192 10 MG Active TAKE ONE Hydrobromide DAILY Rifaximin [facility] [address]-97 550 MG Orally Active 1 tablet Twice a day Ondansetron HCl [facility] 80476760171 4 MG Active 1 TAB EVERY 8 HOURS NEEDED FOR NAUSEA AND VOMITING ORALLY 10 DAYS Magnesium Oxide [facility] 30062473513 400 MG Orally Active 1 tablet BID as needed NuFera [facility] 55824363640 - Orally once a Active 1 tab day Hydrocortisone [facility] 16031819743 10 MG Orally PM Active 1 tablet Once a day with food or milk Results No Known Results Summary Purpose eClinicalWorks Submission
[2018-08-13 15:57] LABS: Absolute Lymphocytes (CBC) 0.3 K/uL (0.7-4.9); Absolute Monocytes 0.6 K/uL (0.1-1.3); Absolute Neutrophil 3.3 K/uL (1.8-8.0); Basophils % 0.3 % (0-1.3); Eosinophils % 2.4 % (0-4.4); Hematocrit 22.3 % (39.6-49.0); Lymphocytes % 7.1 % (15.3-44.8); MCV 94.5 fL (80-100); MPV 7.3 fL (7.6-11.3); Monocytes % 13.8 % (3.3-12.3); RBC Red Blood Cell Count 2.36 M/uL (4.33-5.43)
--- NOTE | 2018-08-13 16:04 | RAD REPORT ---
EXAM DESCRIPTION: Elizabeth Single View08/13/2018 3:51 pm CLINICAL HISTORY: Shortness of breath COMPARISON: April 2018 FINDINGS: The lungs appear clear of acute infiltrate. The heart is normal size IMPRESSION: No acute abnormalities displayed
[2018-08-13 16:07] LABS: Protime INR 1.63
[2018-08-13 16:13] LABS: ALT/SGPT 13 U/L (12-78); AST/SGOT 11 U/L (15-37); Albumin 3.7 g/dL (3.4-5.0); Alkaline Phosphatase 145 U/L (45-117); BUN Blood Urea Nitrogen 37 mg/dL (7-18); Bicarbonate 21 mmol/L (21-32); Bilirubin Total 1.8 mg/dL (0.2-1.0); Glucose Level 138 mg/dL (74-106); Magnesium 2.9 mg/dL (1.8-2.4); NT PRO-BNP 267 pg/mL (<125); Potassium 4.1 mmol/L (3.5-5.1); Protein, Total 6.2 g/dL (6.4-8.2); Sodium Level 130 mmol/L (136-145); Troponin (Emerg Dept Use Only) < 0.02 ng/mL (0.0-0.045)
[2018-08-13 17:03] LABS: Urine Blood NEGATIVE (NEG); Urine Glucose NEGATIVE (NEG); Urine Protein NEGATIVE (NEG); Urine Specific Gravity 1.015 (1.005-1.030); Urine pH 5.5 (5.0-7.0)
--- NOTE | 2018-08-13 17:19 | EDPHYS ---
Physician Documentation [facility] Name: Abhishek Davis Age: 53 yrs Sex: Male : 1965 Arrival Date: 08/13/2018 Time: 14:53 Bed 13 Private MD: Carlos Payne ED Physician Yasir Watkins HPI: 08/13 16:30 This 53 yrs old Male presents to ER via Wheelchair with complaints of Back pm1 pain and weakness. 16:30 Duration: The symptoms are chronic. Associated signs and symptoms: Pertinent negatives: pm1 chest pain, non-productive cough, productive cough, diaphoresis, dizziness, fever, nausea, numbness in extremities, vomiting. The patient has experienced similar episodes in the past, multiple times. The patient has been recently seen by a physician: paracentesis today. Patient with paracentesis today and after returning to his home had difficulty going up the flight of stairs. Patient was going up the flight of stairs and he started having low back pain and felt that his legs were weak. Patient with reported longer paracentesis procedure time and the positioning hurt his lower back. Patient with chronic back pain from fall injury and vertebral fractures. Patient does not have any pain medications at home. Patient ran out of tramadol. Patient does not have any shortness of breath or chest pain. Historical: - Allergies: 15:02 No Known Drug Allergies; aj - Home Meds: 15:02 Centrum Oral daily [Active]; citalopram 10 mg tab 1 tab once daily [Active]; Lactulose aj Oral 30 mL 3 times per day [Active]; Lasix 40 mg Oral tab 1 tab once daily [Active]; mag oxide 400 mg daily [Active]; midodrine 5 mg Oral tab twice a day [Active]; ursodiol 300 mg Oral cap 1 cap 2 times per day [Active]; Xifaxan 550 mg Oral tab 1 tab 2 times per day [Active]; - PMHx: 15:02 Anemia; Cirrhosis; renal insufficiency; Umbilical hernia; aj - Immunization history:: Adult Immunizations up to date. - Social history:: Smoking status: Patient/guardian denies using tobacco. - Ebola Screening: : Patient negative for fever greater than or equal to 101.5 degrees Fahrenheit, and additional compatible Ebola Virus Disease symptoms Patient denies exposure to infectious person Patient denies travel to an Ebola-affected area in the 21 days before illness onset No symptoms or risks identified at this time. ROS: 16:30 Constitutional: Negative for fever, chills, and weight loss, Eyes: Negative for injury, pm1 pain, redness, and discharge, ENT: Negative for injury, pain, and discharge, Neck: Negative for injury, pain, and swelling, Cardiovascular: Negative for chest pain, palpitations, and edema, Respiratory: Negative for shortness of breath, cough, wheezing, and pleuritic chest pain, Abdomen/GI: Negative for abdominal pain, nausea, vomiting, diarrhea, and constipation. 16:30 : Negative for injury, bleeding, discharge, and swelling, MS/Extremity: Negative for injury and deformity, Skin: Negative for injury, rash, and discoloration. 16:30 Back: Positive for of the lumbar area, left low back and right low back. 16:30 Neuro: Positive for weakness, Negative for altered mental status, dizziness, headache, numbness, tingling. Exam: 16:30 Constitutional: This is a well developed, well nourished patient who is awake, alert, pm1 and in no acute distress. Head/Face: Normocephalic, atraumatic. Eyes: Pupils equal round and reactive to light, extra-ocular motions intact. Lids and lashes normal. Conjunctiva and sclera are non-icteric and not injected. Cornea within normal limits. Periorbital areas with no swelling, redness, or edema. ENT: Nares patent. No nasal discharge, no septal abnormalities noted. Tympanic membranes are normal and external auditory canals are clear. Oropharynx with no redness, swelling, or masses, exudates, or evidence of obstruction, uvula midline. Mucous membranes moist. Neck: Trachea midline, no thyromegaly or masses palpated, and no cervical lymphadenopathy. Supple, full range of motion without nuchal rigidity, or vertebral point tenderness. No Meningismus. Chest/axilla: Normal chest wall appearance and motion. Nontender with no deformity. No lesions are appreciated. Cardiovascular: Regular rate and rhythm with a normal S1 and S2. No gallops, murmurs, or rubs. No pulse deficits. Respiratory: Lungs have equal breath sounds bilaterally, clear to auscultation and percussion. No rales, rhonchi or wheezes noted. No increased work of breathing, no retractions or nasal flaring. Abdomen/GI: Soft, non-tender, with normal bowel sounds. No distension or tympany. No guarding or rebound. No evidence of tenderness throughout. 16:30 Skin: Warm, dry with normal turgor. Normal color with no rashes, no lesions, and no evidence of cellulitis. MS/ Extremity: Pulses equal, no cyanosis. Neurovascular intact. Full, normal range of motion. 16:30 Back: vertebral tenderness, is not appreciated, muscle spasm, is appreciated in the left low back and right low back. 16:30 Neuro: Orientation: is normal, Motor: moves all fours, Sensation: is normal, no obvious gross deficits. Vital Signs: 15:02 BP 82 / 64; Pulse 98; Resp 20; Temp 98.0; Pulse Ox 100% on R/A; Weight 72.57 kg; Height aj 6 ft. 0 in. (182.88 cm); 15:16 BP 105 / 77; Pulse 91; Resp 19; Pulse Ox 100% on R/A; jl7 15:30 BP 106 / 77; Pulse 93; Resp 18 S; Pulse Ox 99% on R/A; jl7 16:00 BP 103 / 75; Pulse 96; Resp 16 S; Pulse Ox 98% on R/A; jl7 16:38 BP 99 / 70 Supine; Pulse 101; Resp 16 S; Pulse Ox 96% on R/A; jl7 16:40 BP 97 / 66 Sitting; Pulse 102; jl7 16:42 BP 97 / 59 Standing; Pulse 106; jl7 17:00 BP 112 / 83; Pulse 97; Resp 16 S; Pulse Ox 97% on R/A; jl7 15:02 Body Mass Index 21.70 (72.57 kg, 182.88 cm) aj MDM: 15:05 Patient medically screened. pm1 17:15 Data reviewed: vital signs. Data interpreted: Pulse oximetry: on room air is 97 %. pm1 Interpretation: normal. Counseling: I had a detailed discussion with the patient and/or guardian regarding: the historical points, exam findings, and any diagnostic results supporting the discharge/admit diagnosis, lab results, radiology results, the need for outpatient follow up, to return to the emergency department if symptoms worsen or persist or if there are any questions or concerns that arise at home. 08/13 15:28 Order name: Basic Metabolic Panel; Complete Time: 16:32 pm1 08/13 15:28 Order name: CBC with Diff; Complete Time: 17:38 pm1 08/13 15:28 Order name: LFT's; Complete Time: 16:32 pm1 08/13 15:28 Order name: Magnesium; Complete Time: 16:32 pm1 08/13 15:28 Order name: NT PRO-BNP; Complete Time: 16:32 pm1 08/13 15:28 Order name: PT-INR; Complete Time: 16:32 pm1 08/13 15:28 Order name: Troponin (emerg Dept Use Only); Complete Time: 16:32 pm1 08/13 15:28 Order name: XRAY Chest (1 view); Complete Time: 16:06 pm1 08/13 15:28 Order name: EKG; Complete Time: 15:29 pm1 08/13 15:28 Order name: Cardiac monitoring; Complete Time: 15:55 pm1 08/13 15:28 Order name: EKG - Nurse/Tech; Complete Time: 15:55 pm1 08/13 16:19 Order name: CBC Smear Scan; Complete Time: 17:38 EDMS 08/13 16:51 Order name: Urine Dipstick--Ancillary (enter results); Complete Time: 17:14 mt 08/13 15:28 Order name: IV Saline Lock; Complete Time: 15:55 pm1 08/13 15:28 Order name: Labs collected and sent; Complete Time: 15:54 pm1 08/13 15:28 Order name: O2 Per Protocol; Complete Time: 15:54 pm1 08/13 15:28 Order name: O2 Sat Monitoring; Complete Time: 15:54 pm1 08/13 16:34 Order name: Orthostatics; Complete Time: 16:55 pm1 Administered Medications: 17:17 Drug: Haugen 5 mg-325 mg 1 tabs Route: PO; jl7 18:03 Follow up: Response: No adverse reaction jl7 Disposition: 18:37 Co-signature as Attending Physician, Yasir Watkins MD. rn Disposition: 08/13/18 17:18 Discharged to Home. Impression: Low back pain. - Condition is Stable. - Discharge Instructions: Back Pain, Adult. - Prescriptions for Tramadol 50 mg Oral Tablet - take 1 tablet by ORAL route every 8 hours as needed; 15 tablet. - Medication Reconciliation Form, Thank You Letter, Prescription Opioid Use form. - Follow up: Emergency Department; When: As needed; Reason: Worsening of condition. Follow up: Private Physician; When: 2 - 3 days; Reason: Recheck today's complaints, Continuance of care, Re-evaluation by your physician. - Problem is new. - Symptoms have improved. Signatures: Dispatcher [employer] EDBreanna Burris RN Yasir Garcia MD MD rn Marinas, Patrick, PROGRAM MANAGEMENT PROFESSIONAL PROGRAM MANAGEMENT PROFESSIONAL pm1 Baldemar Hamilton RN RN jl7 Corrections: (The following items were deleted from the chart) 18:04 17:18 08/13/2018 17:18 Discharged to Home. Impression: Low back pain. Condition is jl7 Stable. Forms are Medication Reconciliation Form, Thank You Letter, Antibiotic Education, Prescription Opioid Use. Follow up: Emergency Department; When: As needed; Reason: Worsening of condition. Follow up: Private Physician; When: 2 - 3 days; Reason: Recheck today's complaints, Continuance of care, Re-evaluation by your physician. Problem is new. Symptoms have improved. pm1
--- NOTE | 2018-08-13 17:19 | ER ---
Nurse's Notes [facility] Name: Abhishek Davis Age: 53 yrs Sex: Male : 1965 Arrival Date: 08/13/2018 Time: 14:53 Bed 13 Private MD: Carlos Payne Diagnosis: Low back pain Presentation: 08/13 15:00 Presenting complaint: Patient states: Patient reports generalized weakness that is aj constant, but was worse after paracentesis this afternoon. Transition of care: patient was not received from another setting of care. Onset of symptoms was August 13, 2018. Risk Assessment: Do you want to hurt yourself or someone else? Patient reports no desire to harm self or others. Initial Sepsis Screen: Does the patient meet any 2 criteria? No. Patient's initial sepsis screen is negative. Does the patient have a suspected source of infection? No. Patient's initial sepsis screen is negative. Care prior to arrival: None. 15:00 Method Of Arrival: Wheelchair aj 15:00 Acuity: KACEY 2 aj Triage Assessment: 15:02 General: Appears in no apparent distress. uncomfortable, Behavior is calm, cooperative, aj appropriate for age. Pain: Denies pain. Neuro: Level of Consciousness is awake, alert, obeys commands, Oriented to person, place, time, situation, Appropriate for age Reports weakness. Respiratory: Reports shortness of breath on exertion Airway is patent Respiratory effort is even, unlabored, Respiratory pattern is regular, symmetrical, Onset: The symptoms/episode began/occurred gradually, the patient has mild shortness of breath. Derm: Skin is intact, is healthy with good turgor, Skin is pink, warm \\T\\ dry. normal. Historical: - Allergies: 15:02 No Known Drug Allergies; aj - Home Meds: 15:02 Centrum Oral daily [Active]; citalopram 10 mg tab 1 tab once daily [Active]; Lactulose aj Oral 30 mL 3 times per day [Active]; Lasix 40 mg Oral tab 1 tab once daily [Active]; mag oxide 400 mg daily [Active]; midodrine 5 mg Oral tab twice a day [Active]; ursodiol 300 mg Oral cap 1 cap 2 times per day [Active]; Xifaxan 550 mg Oral tab 1 tab 2 times per day [Active]; - PMHx: 15:02 Anemia; Cirrhosis; renal insufficiency; Umbilical hernia; aj - Immunization history:: Adult Immunizations up to date. - Social history:: Smoking status: Patient/guardian denies using tobacco. - Ebola Screening: : Patient negative for fever greater than or equal to 101.5 degrees Fahrenheit, and additional compatible Ebola Virus Disease symptoms Patient denies exposure to infectious person Patient denies travel to an Ebola-affected area in the 21 days before illness onset No symptoms or risks identified at this time. Screenin:00 Abuse screen: Denies threats or abuse. Denies injuries from another. Nutritional jl7 screening: No deficits noted. Tuberculosis screening: No symptoms or risk factors identified. Fall Risk IV access (20 points). Total Ty Fall Scale indicates No Risk (0-24 pts). Assessment: 15:10 General: Appears in no apparent distress. uncomfortable, ill, Behavior is calm, jl7 cooperative, appropriate for age. Pain: Complains of pain in umbilical hernia, pt states "It's sore." Pain began years ago. Neuro: Level of Consciousness is awake, alert, obeys commands, Oriented to person, place, time, situation. Cardiovascular: Heart tones S1 S2 present Patient's skin is warm and dry. Rhythm is regular. Respiratory: Airway is patent Respiratory effort is even, unlabored, Respiratory pattern is regular, symmetrical, Breath sounds are clear bilaterally. Denies shortness of breath Pt reported feeling short of breath post paracentesis but he is not short of breath at this time. GI: Abdomen is round non-distended, Umbilical hernia noted. : No signs and/or symptoms were reported regarding the genitourinary system. EENT: No signs and/or symptoms were reported regarding the EENT system. Derm: Skin is pink, warm \\T\\ dry. Musculoskeletal: Reports weakness in all over. 16:00 Reassessment: Patient and/or family updated on plan of care and expected duration. Pain jl7 level reassessed. Patient is alert, oriented x 3, equal unlabored respirations, skin warm/dry/pink. 16:28 Reassessment: critical lab result- HGB- 7.8. mg2 17:16 Reassessment: No changes from previously documented assessment. Patient and/or family jl7 updated on plan of care and expected duration. Pain level reassessed. Patient is alert, oriented x 3, equal unlabored respirations, skin warm/dry/pink. Pt c/o low back pain, reports he has chronic low back pain but it's worse right now and having a hard time standing, provider notified, see MAR for orders. Vital Signs: 15:02 BP 82 / 64; Pulse 98; Resp 20; Temp 98.0; Pulse Ox 100% on R/A; Weight 72.57 kg; Height aj 6 ft. 0 in. (182.88 cm); 15:16 BP 105 / 77; Pulse 91; Resp 19; Pulse Ox 100% on R/A; jl7 15:30 BP 106 / 77; Pulse 93; Resp 18 S; Pulse Ox 99% on R/A; jl7 16:00 BP 103 / 75; Pulse 96; Resp 16 S; Pulse Ox 98% on R/A; jl7 16:38 BP 99 / 70 Supine; Pulse 101; Resp 16 S; Pulse Ox 96% on R/A; jl7 16:40 BP 97 / 66 Sitting; Pulse 102; jl7 16:42 BP 97 / 59 Standing; Pulse 106; jl7 17:00 BP 112 / 83; Pulse 97; Resp 16 S; Pulse Ox 97% on R/A; jl7 15:02 Body Mass Index 21.70 (72.57 kg, 182.88 cm) ED Course: 14:53 Patient arrived in ED. mr 14:53 Carlos Payne DO is Private Physician. mr 15:01 Triage completed. aj 15:02 Arm band placed on right wrist. Patient placed in an exam room. aj 15:05 Quinten Hyde, AFSHIN is PHCP. pm1 15:05 Yasir Watkins MD is Attending Physician. pm1 15:07 Baldemar Hamilton, NIYA is Primary Nurse. jl7 15:46 EKG done, by air technician. reviewed by Quinten Hyde NP. sm3 15:50 X-ray completed. Portable x-ray completed in exam room. Patient tolerated procedure ml well. 15:51 XRAY Chest (1 view) In Process Unspecified. EDMS 16:00 Patient has correct armband on for positive identification. Bed in low position. Call jl7 light in reach. Side rails up X 1. school lunch monitor on. Pulse ox on. NIBP on. Warm blanket given. 16:00 Initial lab(s) drawn, by me, sent to lab. Inserted saline lock: 20 gauge in right jl7 antecubital area, using aseptic technique. Blood collected. 16:27 Assisted with urinal. jl7 18:02 No provider procedures requiring assistance completed. IV discontinued, intact, jl7 bleeding controlled, No redness/swelling at site. Pressure dressing applied. Administered Medications: 17:17 Drug: Coden 5 mg-325 mg 1 tabs Route: PO; jl7 18:03 Follow up: Response: No adverse reaction jl7 Outcome: 17:18 Discharge ordered by MD. pm1 18:02 Discharged to home ambulatory, with family. jl7 18:02 Condition: stable 18:02 Discharge instructions given to patient, family, Instructed on discharge instructions, follow up and referral plans. medication usage, Demonstrated understanding of instructions, follow-up care, medications, Prescriptions given X 1. 18:04 Patient left the ED. jl7 Signatures: Dispatcher [employer] EDMS Breanna Coleman RN RN aj Rivera, Meggan mr Oseas, Quinten Workman, AFSHIN COMMUNICATIONS ATTENDANT pm1 Baldemar Hamilton RN RN jl7 Miguel Farrell RN RN [facility] Katlyn Ordonez sm3 Corrections: (The following items were deleted from the chart) 17:16 16:00 Reassessment: No changes from previously documented assessment. Patient and/or jl7 family updated on plan of care and expected duration. Pain level reassessed. Patient is alert, oriented x 3, equal unlabored respirations, skin warm/dry/pink. Pt c/o low back pain, reports he has chronic low back pain but it's worse right now and having a hard time standing, provider notified, see MAR for orders jl7
[2018-08-13] MEDS ORDERED: HYDROCODONE/APAP 5/325 MG TAB ONE (17:20)
[2018-08-13 17:37] LABS: Anisocytosis 1+; Blood Morphology Comment NOTED (NOT SEEN); Ovalocytes 1+; Platelet Estimate DECR; Poikilocytosis 1+; Urine White Blood Cell Casts OK
[2018-08-13 18:11] VITALS: TEMP 98
[2018-08-13 18:19] VITALS: BP 112/83; O2SAT 97
--- NOTE | 2018-08-14 06:51 | EKG ---
Test Date: 2018-08-13 Test Time: 15:43:16 [employer] Operator [employer]: G[employer] MEASUREMENT RESULTS: Intervals: Rate: 96 UT: 196 QRSD: 98 QT: 400 QTc: 505 [place]: P: 43 UT: 196 QRS: -1 T: 39 INTERPRETIVE STATEMENTS: Normal sinus rhythm Prolonged QT Abnormal ECG Compared to ECG 05/04/2018 23:15:37 Prolonged QT interval now present Electronically Signed On 08-14-18 06:49:13 CDT by Chris Ramos
== END 2018-08-13 18:04 | disposition home or self-care (01) ==
LOC: ER 14:50
DX: M54.5 Low back pain (principal); R53.1 Weakness; N28.9 Disorder of kidney and ureter, unspecified; K74.60 Unspecified cirrhosis of liver
CPT/HCPCS: 36415; 71045; 80048; 80076; 81003; 83735; 83880; 84484; 85025; 85610; 93005; 99285

== ENCOUNTER 2018-08-24 22:19 | Emergency (ER) | payer MEDICAID ==
--- OUTSIDE RECORDS SUMMARY | 2018-08-24 22:29 | XMS REPORT ---
:1965 [facility] Organization [facility] [address] [place] [place] [id number] Care Team Providers Name Role Phone BRANDO [...] Atomic Results Result Comments COMPREHENSIVE METABOLIC PANEL 2018-08-18 13:54:00 Test Item Value Reference Range Comments TOTAL PROTEIN (BEAKER) (test 6.2 gm/dL 6.0-8.3 cnfi=262) ALBUMIN (BEAKER) (test 3.4 g/dL 3.5-5.0 wsgp=0963) ALKALINE PHOSPHATASE 190 U/L 40-150 (BEAKER) (test tbip=729) BILIRUBIN TOTAL (BEAKER) 1.9 mg/dL 0.2-1.2 (test fcny=212) SODIUM (BEAKER) (test 125 meq/L 136-145 rxvt=169) POTASSIUM (BEAKER) (test 5.0 meq/L 3.5-5.1 rrkn=591) CHLORIDE (BEAKER) (test 99 meq/L 98-107 phlj=427) CO2 (BEAKER) (test thip=054) 19 meq/L 22-29 BLOOD UREA NITROGEN (BEAKER) 36 mg/dL 7-21 (test buet=006) CREATININE (BEAKER) (test 1.65 mg/dL 0.57-1.25 kkrl=554) GLUCOSE RANDOM (BEAKER) 133 mg/dL 70-105 (test eblq=047) CALCIUM (BEAKER) (test 9.5 mg/dL 8.4-10.2 scdc=306) AST (SGOT) (BEAKER) (test 23 U/L 5-34 fdhz=748) ALT (SGPT) (BEAKER) (test 12 U/L 6-55 sbpr=183) EGFR (BEAKER) (test 44 mL/min/1.73 sq m ESTIMATED GFR IS NOT hrgu=7164) ACCURATE CREATININE CLEARANCE IN PREDICTING GLOMERULAR FILTRATION RATE. ESTIMATED GFR IS NOT APPLICABLE FOR DIALYSIS PATIENTS. BILIRUBIN, [id number] 13:54:00 Test Item Value Reference Range Comments BILIRUBIN DIRECT (BEAKER) (test mxsv=009) 1.4 mg/dL 0.1-0.5 CBC W/PLT COUNT & AUTO [id number] 13:50:00 Test Item Value Reference Range Comments WHITE BLOOD CELL COUNT (BEAKER) (test upfo=748) 6.8 K/ L 3.5-10.5 RED BLOOD CELL COUNT (BEAKER) (test rhpr=490) 3.01 M/ L 4.63-6.08 HEMOGLOBIN (BEAKER) (test xdyp=099) 9.5 GM/DL 13.7-17.5 HEMATOCRIT (BEAKER) (test tfgk=103) 28.3 % 40.1-51.0 MEAN CORPUSCULAR VOLUME (BEAKER) (test sxjf=628) 94.0 fL 79.0-92.2 MEAN CORPUSCULAR HEMOGLOBIN (BEAKER) (test 31.6 pg 25.7-32.2 xzoj=251) MEAN CORPUSCULAR HEMOGLOBIN CONC (BEAKER) (test 33.6 GM/DL 32.3-36.5 vwcn=577) RED CELL DISTRIBUTION WIDTH (BEAKER) (test 14.5 % 11.6-14.4 svzc=341) PLATELET COUNT (BEAKER) (test rznh=201) 131 K/CU MM 150-450 MEAN PLATELET VOLUME (BEAKER) (test eenw=437) 9.0 fL 9.4-12.4 NUCLEATED RED BLOOD CELLS (BEAKER) (test 0 /100 WBC 0-0 eslp=834) NEUTROPHILS RELATIVE PERCENT (BEAKER) (test 75 % tzbd=351) LYMPHOCYTES RELATIVE PERCENT (BEAKER) (test 7 % zhxw=718) MONOCYTES RELATIVE PERCENT (BEAKER) (test 14 % vdkc=398) EOSINOPHILS RELATIVE PERCENT (BEAKER) (test 2 % jqit=134) BASOPHILS RELATIVE PERCENT (BEAKER) (test 0 % flge=197) NEUTROPHILS ABSOLUTE COUNT (BEAKER) (test 5.11 K/ L 1.78-5.38 cjsa=561) LYMPHOCYTES ABSOLUTE COUNT (BEAKER) (test 0.50 K/ L 1.32-3.57 ielq=079) MONOCYTES ABSOLUTE COUNT (BEAKER) (test 0.94 K/ L 0.30-0.82 qhje=330) EOSINOPHILS ABSOLUTE COUNT (BEAKER) (test 0.12 K/ L 0.04-0.54 xdcp=253) BASOPHILS ABSOLUTE COUNT (BEAKER) (test 0.03 K/ L 0.01-0.08 kesd=158) IMMATURE GRANULOCYTES-RELATIVE PERCENT (BEAKER) 1 % 0-1 (test uakp=1412) PROTHROMBIN [id number] 13:46:00 Test Item Value Reference Range Comments PROTIME (BEAKER) (test mwxr=693) 19.5 seconds 11.7-14.7 INR (BEAKER) (test aefb=312) 1.7 <=5.9 RECOMMENDED COUMADIN/WARFARIN INR THERAPY RANGESSTANDARD DOSE: 2.0 - 3.0 Includes: PROPHYLAXIS forvenous thrombosis, systemic embolization; TREATMENT for venous thrombosis and/or pulmonary embolus.HIGH RISK: Target INR is 2.5-3.5 for patients with mechanical heart valves.BONE AND/OR JOINT IMAGING, WHOLE [id number] 16:45:00FINAL REPORT PROCEDURE: BONE SCAN, WHOLE BODY CPT CODE: [id number] INDICATION: L3 vertebral body lesion follow-up R91.1 [...] 3-5 and right rib four. There is mildto moderate increase in activity in T12-S1 with greatest increase in the lower lumbar spine. Focal increase in tracer activity in the shoulders, elbows, wrists, hips, knees, ankles, and feet. IMPRESSION: 1. No specific evidence to indicate bony neoplastic disease.2. Multiple rib and vertebral lesions consistent with prior trauma of varying ages. Comparison was made with CT Abdomen/Pelvis dated 05/08/2018. Signed: Prakash Reid Verified Date/ Time: 08/05/2018 16:45:34 Reading Location: [address] Reading Room NIR, VERTEBROPLASTY THORACIC, [id number] 17:23:00Reason for exam:->T11, T12, L2 compression fracturesAddendum BeginsREPORT STATUS:A Addendum: June 04, 2018 1720 hours It should be noted that the number images saved to PACS procedure are extremely limited due to equipment malfunction and image archiving problems. Because of these issues, two views of the thoracic and lumbar spine were obtained following the procedure Signed: Karina Rain Verified Date/Time: 06/04/2018 17:23:27 Reading Location : [address] Radiology Reading RoomAddendum EndsFINAL REPORT HISTORY: T11, T12 and L2 wedge vertebral compression fracture and severe lower back pain despite conservative therapy. PROCEDURE: Following informed written consent, general endotracheal anesthesia was performed by the anesthesiology service and the patient was placed in a prone positionon the angiographic table. The lower back was prepped and draped in the usual sterile manner. Using a bilateral posterior transpedicular approach and fluoroscopic guidance, a single access needle was placed through the right pedicle at L3 and into the posterior aspect of the vertebral body in the sclerotic lesion identified by recent CT scan. Core bone biopsy was obtained from this area and submittedto pathology formalin for evaluation. Bilateral access needles [...] vertebral augmentation. No immediate complications. Two. Successful uncomplicatedfluoroscopically guided core biopsy of the posterior right aspect of the L3 vertebral body. Total fluoroscopy time: 17 minsEstimated dose reported as (Ka,r): 1550 mGy Signed: Karina Rain MDReport Verified Date/Time: 06/03/2018 17:56:43 Reading Location : [place] [address] Angio Body Reading Room ALPHA FETOPROTEIN (AFP), TUMOR [id number] 15:20:00 Test Item Value Reference Range Comments ALPHA-FETOPROTEIN (BEAKER) (test hiel=5687) 2.2 ng/mL <10.0 COMPREHENSIVE METABOLIC [id number] 14:54:00 Test Item Value Reference Range Comments TOTAL PROTEIN (BEAKER) 6.5 gm/dL 6.0-8.3 (test ghjj=228) ALBUMIN (BEAKER) (test 3.6 g/dL 3.5-5.0 rpyd=9080) ALKALINE PHOSPHATASE 342 U/L 40-150 (BEAKER) (test yjih=274) BILIRUBIN TOTAL (BEAKER) 4.2 mg/dL 0.2-1.2 (test omdf=084) SODIUM (BEAKER) (test 128 meq/L 136-145 qyaz=915) POTASSIUM (BEAKER) (test 4.6 meq/L 3.5-5.1 msza=985) CHLORIDE (BEAKER) (test 100 meq/L 98-107 jydd=131) CO2 (BEAKER) (test 21 meq/L 22-29 mgmn=253) BLOOD UREA NITROGEN 21 mg/dL 7-21 (BEAKER) (test gtck=888) CREATININE (BEAKER) (test 1.37 mg/dL 0.57-1.25 wuml=578) GLUCOSE RANDOM (BEAKER) 108 mg/dL 70-105 (test pfyf=373) CALCIUM (BEAKER) (test 9.5 mg/dL 8.4-10.2 qnbg=764) AST (SGOT) (BEAKER) (test 25 U/L 5-34 pocr=379) ALT (SGPT) (BEAKER) (test 10 U/L 6-55 guuc=494) EGFR (BEAKER) (test 54 mL/min/1.73 sq m ESTIMATED GFR IS NOT uixv=1295) ACCURATE CREATININE CLEARANCE IN PREDICTING GLOMERULAR FILTRATION RATE. ESTIMATED GFR IS NOT APPLICABLE FOR DIALYSIS PATIENTS. Specimen slightly ictericBILIRUBIN, [id number] 14:54:00 Test Item Value Reference Range Comments BILIRUBIN DIRECT (BEAKER) (test klwn=166) 2.1 mg/dL 0.1-0.5 CBC W/PLT COUNT & AUTO [id number] 14:52:00 Test Item Value Reference Range Comments WHITE BLOOD CELL COUNT (BEAKER) (test rekt=462) 3.9 K/ L 3.5-10.5 RED BLOOD CELL COUNT (BEAKER) (test plcs=588) 2.69 M/ L 4.63-6.08 HEMOGLOBIN (BEAKER) (test pnxs=885) 9.1 GM/DL 13.7-17.5 HEMATOCRIT (BEAKER) (test jkaa=646) 27.3 % 40.1-51.0 MEAN CORPUSCULAR VOLUME (BEAKER) (test qogl=477) 101.5 fL 79.0-92.2 MEAN CORPUSCULAR HEMOGLOBIN (BEAKER) (test 33.8 pg 25.7-32.2 yihc=816) MEAN CORPUSCULAR HEMOGLOBIN CONC (BEAKER) (test 33.3 GM/DL 32.3-36.5 zupi=165) RED CELL DISTRIBUTION WIDTH (BEAKER) (test 18.6 % 11.6-14.4 yoze=951) PLATELET COUNT (BEAKER) (test ljcr=270) 71 K/CU MM 150-450 MEAN PLATELET VOLUME (BEAKER) (test ebni=945) 9.6 fL 9.4-12.4 NUCLEATED RED BLOOD CELLS (BEAKER) (test 0 /100 WBC 0-0 rteh=742) NEUTROPHILS RELATIVE PERCENT (BEAKER) (test 62 % oqga=138) LYMPHOCYTES RELATIVE PERCENT (BEAKER) (test 16 % yzbk=781) MONOCYTES RELATIVE PERCENT (BEAKER) (test 17 % hjqa=594) EOSINOPHILS RELATIVE PERCENT (BEAKER) (test 5 % hcme=152) BASOPHILS RELATIVE PERCENT (BEAKER) (test 0 % rwnu=372) NEUTROPHILS ABSOLUTE COUNT (BEAKER) (test 2.41 K/ L 1.78-5.38 inwl=728) LYMPHOCYTES ABSOLUTE COUNT (BEAKER) (test 0.62 K/ L 1.32-3.57 qhfq=100) MONOCYTES ABSOLUTE COUNT (BEAKER) (test ljmv=263) 0.65 K/ L 0.30-0.82 EOSINOPHILS ABSOLUTE COUNT (BEAKER) (test 0.20 K/ L 0.04-0.54 nqdl=493) BASOPHILS ABSOLUTE COUNT (BEAKER) (test zjsq=413) 0.01 K/ L 0.01-0.08 IMMATURE GRANULOCYTES-RELATIVE PERCENT (BEAKER) 0 % 0-1 (test wzte=7285) PROTHROMBIN [id number] 14:50:00 Test Item Value Reference Range Comments PROTIME (BEAKER) (test besj=844) 19.5 seconds 11.7-14.7 INR (BEAKER) (test bjdm=678) 1.7 <=5.9 RECOMMENDED COUMADIN/WARFARIN INR THERAPY RANGESSTANDARD DOSE: 2.0 - 3.0 Includes: PROPHYLAXIS forvenous thrombosis, systemic embolization; TREATMENT for venous thrombosis and/or pulmonary embolus.HIGH RISK: Target INR is 2.5-3.5 for patients with mechanical heart valves.BODY FLUID CULTURE + GRAM [id number] 13:19:00 Test Item Value Reference Range Comments CULTURE (BEAKER) (test hoqe=8818) No growth GRAM STAIN RESULT (BEAKER) (test No WBCs wjmk=4699) GRAM STAIN RESULT (BEAKER) (test No organisms seen ffqu=83392) [id number] 17:36:00 Test Item Value Reference Range Comments SODIUM (BEAKER) (test yvfj=654) 133 meq/L 136-145 POTASSIUM (BEAKER) (test orov=518) 3.2 meq/L 3.5-5.1 CHLORIDE (BEAKER) (test xcep=682) 102 meq/L 98-107 CO2 (BEAKER) (test fgzl=412) 21 meq/L 22-29 [id number] 13:21:00 Test Item Value Reference Range Comments SODIUM (BEAKER) (test wmus=104) 134 meq/L 136-145 POTASSIUM (BEAKER) (test bitt=217) 3.0 meq/L 3.5-5.1 CHLORIDE (BEAKER) (test glis=084) 103 meq/L 98-107 CO2 (BEAKER) (test fnko=206) 22 meq/L 22-29 CALCIUM, [id number] 04:54:00 Test Item Value Reference Range Comments CALCIUM IONIZED (BEAKER) (test kjfc=584) 1.09 mmol/L 1.12-1.27 PH, BLOOD (BEAKER) (test nrlk=7345) 7.35 [id number] 04:04:00 Test Item Value Reference Range Comments PHOSPHORUS (BEAKER) (test mkxk=345) 2.4 mg/dL 2.3-4.7 [id number] 04:04:00 Test Item Value Reference Range Comments MAGNESIUM (BEAKER) (test jkkj=931) 2.0 mg/dL 1.6-2.6 HEPATIC FUNCTION [id number] 04:04:00 Test Item Value Reference Range Comments TOTAL PROTEIN (BEAKER) (test kquf=488) 5.8 gm/dL 6.0-8.3 ALBUMIN (BEAKER) (test toba=1254) 4.1 g/dL 3.5-5.0 BILIRUBIN TOTAL (BEAKER) (test seob=140) 3.9 mg/dL 0.2-1.2 BILIRUBIN DIRECT (BEAKER) (test ojgg=982) 2.0 mg/dL 0.1-0.5 ALKALINE PHOSPHATASE (BEAKER) (test qhlb=702) 123 U/L 40-150 AST (SGOT) (BEAKER) (test fpow=552) 14 U/L 5-34 ALT (SGPT) (BEAKER) (test otah=592) < U/L 6-55 Specimen slightly ictericCOMPREHENSIVE METABOLIC [id number] 04:04:00 Test Item Value Reference Range Comments TOTAL PROTEIN (BEAKER) 5.8 gm/dL 6.0-8.3 (test suxe=254) ALBUMIN (BEAKER) (test 4.1 g/dL 3.5-5.0 hdjo=7661) ALKALINE PHOSPHATASE 123 U/L 40-150 (BEAKER) (test txdo=335) BILIRUBIN TOTAL (BEAKER) 3.9 mg/dL 0.2-1.2 (test gaim=385) SODIUM (BEAKER) (test 135 meq/L 136-145 acjb=907) POTASSIUM (BEAKER) (test 2.9 meq/L 3.5-5.1 qlrn=568) CHLORIDE (BEAKER) (test 103 meq/L 98-107 ojcn=680) CO2 (BEAKER) (test 21 meq/L 22-29 pmzs=346) BLOOD UREA NITROGEN 18 mg/dL 7-21 (BEAKER) (test oyge=311) CREATININE (BEAKER) (test 1.32 mg/dL 0.57-1.25 zsoe=948) GLUCOSE RANDOM (BEAKER) 126 mg/dL 70-105 (test ttve=881) CALCIUM (BEAKER) (test 9.8 mg/dL 8.4-10.2 bkzu=420) AST (SGOT) (BEAKER) (test 14 U/L 5-34 tere=537) ALT (SGPT) (BEAKER) (test < U/L 6-55 lhun=088) EGFR (BEAKER) (test 57 mL/min/1.73 sq m ESTIMATED GFR IS NOT faxs=7622) ACCURATE CREATININE CLEARANCE IN PREDICTING GLOMERULAR FILTRATION RATE. ESTIMATED GFR IS NOT APPLICABLE FOR DIALYSIS PATIENTS. Specimen slightly ictericPROTHROMBIN [id number] 04:02:00 Test Item Value Reference Range Comments PROTIME (BEAKER) (test uzhl=305) 25.1 seconds 11.7-14.7 INR (BEAKER) (test ogfc=782) 2.3 <=5.9 RECOMMENDED COUMADIN/WARFARIN INR THERAPY RANGESSTANDARD DOSE: 2.0 - 3.0 Includes: PROPHYLAXIS forvenous thrombosis, systemic embolization; TREATMENT for venous thrombosis and/or pulmonary embolus.HIGH RISK: Target INR is 2.5-3.5 for patients with mechanical heart valves.CBC W/PLT COUNT & AUTO [id number] 03:55:00 Test Item Value Reference Range Comments WHITE BLOOD CELL COUNT (BEAKER) (test xlat=852) 3.6 K/ L 3.5-10.5 RED BLOOD CELL COUNT (BEAKER) (test xlpf=578) 2.48 M/ L 4.63-6.08 HEMOGLOBIN (BEAKER) (test fqge=925) 7.9 GM/DL 13.7-17.5 HEMATOCRIT (BEAKER) (test ssfr=323) 23.7 % 40.1-51.0 MEAN CORPUSCULAR VOLUME (BEAKER) (test xkyt=447) 95.6 fL 79.0-92.2 MEAN CORPUSCULAR HEMOGLOBIN (BEAKER) (test 31.9 pg 25.7-32.2 xauw=383) MEAN CORPUSCULAR HEMOGLOBIN CONC (BEAKER) (test 33.3 GM/DL 32.3-36.5 demd=641) RED CELL DISTRIBUTION WIDTH (BEAKER) (test 18.8 % 11.6-14.4 qaud=754) PLATELET COUNT (BEAKER) (test iqrg=657) 38 K/CU MM 150-450 MEAN PLATELET VOLUME (BEAKER) (test yyee=717) 9.3 fL 9.4-12.4 NUCLEATED RED BLOOD CELLS (BEAKER) (test 0 /100 WBC 0-0 ngsq=735) NEUTROPHILS RELATIVE PERCENT (BEAKER) (test 57 % ekhi=374) LYMPHOCYTES RELATIVE PERCENT (BEAKER) (test 15 % ysec=825) MONOCYTES RELATIVE PERCENT (BEAKER) (test 22 % tpag=268) EOSINOPHILS RELATIVE PERCENT (BEAKER) (test 4 % cylf=920) BASOPHILS RELATIVE PERCENT (BEAKER) (test 0 % osys=060) NEUTROPHILS ABSOLUTE COUNT (BEAKER) (test 2.09 K/ L 1.78-5.38 djuh=522) LYMPHOCYTES ABSOLUTE COUNT (BEAKER) (test 0.54 K/ L 1.32-3.57 wuza=863) MONOCYTES ABSOLUTE COUNT (BEAKER) (test fahr=952) 0.81 K/ L 0.30-0.82 EOSINOPHILS ABSOLUTE COUNT (BEAKER) (test 0.15 K/ L 0.04-0.54 rzmv=210) BASOPHILS ABSOLUTE COUNT (BEAKER) (test axym=070) 0.01 K/ L 0.01-0.08 IMMATURE GRANULOCYTES-RELATIVE PERCENT (BEAKER) 1 % 0-1 (test lfic=6783) [id number] 18:07:00 Test Item Value Reference Range Comments SODIUM (BEAKER) (test dfnv=760) 132 meq/L 136-145 POTASSIUM (BEAKER) (test 2.9 meq/L 3.5-5.1 Specimen slightly hemolyzed hagz=911) CHLORIDE (BEAKER) (test 101 meq/L 98-107 dqco=334) CO2 (BEAKER) (test omrp=615) 18 meq/L 22-29 LACTIC ACID, VENOUS, WHOLE [id number] 16:43:00 Test Item Value Reference Range Comments LACTATE BLOOD VENOUS (2) 1.6 mmol/L 0.5-2.2 Specimen slightly hemolyzed (BEAKER) (test sego=2355) Effective 02/28/2016: Units/Reference Range ChangeNew: 0.5-2.2 mmol/L Previous: 5 -20 mg/dLSpecimen slightly ictericBODY FLUID CULTURE + GRAM [id number] 12: 08:00 Test Item Value Reference Range Comments CULTURE (BEAKER) (test slyd=7661) No growth GRAM STAIN RESULT (BEAKER) (test <1+ WBCs vild=8396) GRAM STAIN RESULT (BEAKER) (test No organisms seen ixpz=08801) [id number] 08:10:00 Test Item Value Reference Range Comments PHOSPHORUS (BEAKER) (test orck=044) 2.8 mg/dL 2.3-4.7 [id number] 08:10:00 Test Item Value Reference Range Comments MAGNESIUM (BEAKER) (test pqgc=653) 2.2 mg/dL 1.6-2.6 COMPREHENSIVE METABOLIC [id number] 08:10:00 Test Item Value Reference Range Comments TOTAL PROTEIN (BEAKER) 6.2 gm/dL 6.0-8.3 (test qejm=083) ALBUMIN (BEAKER) (test 4.4 g/dL 3.5-5.0 swdp=4044) ALKALINE PHOSPHATASE 121 U/L 40-150 (BEAKER) (test njlo=327) BILIRUBIN TOTAL (BEAKER) 4.4 mg/dL 0.2-1.2 (test esxu=331) SODIUM (BEAKER) (test 135 meq/L 136-145 ipop=859) POTASSIUM (BEAKER) (test 2.8 meq/L 3.5-5.1 tduv=219) CHLORIDE (BEAKER) (test 102 meq/L 98-107 qstw=454) CO2 (BEAKER) (test 21 meq/L 22-29 xfhw=666) BLOOD UREA NITROGEN 20 mg/dL 7-21 (BEAKER) (test hpdm=864) CREATININE (BEAKER) (test 1.34 mg/dL 0.57-1.25 anws=012) GLUCOSE RANDOM (BEAKER) 132 mg/dL 70-105 (test mjgc=857) CALCIUM (BEAKER) (test 10.0 mg/dL 8.4-10.2 cedg=840) AST (SGOT) (BEAKER) (test 16 U/L 5-34 bjwe=615) ALT (SGPT) (BEAKER) (test 6 U/L 6-55 oebq=373) EGFR (BEAKER) (test 56 mL/min/1.73 sq m ESTIMATED GFR IS NOT fxtd=8265) ACCURATE CREATININE CLEARANCE IN PREDICTING GLOMERULAR FILTRATION RATE. ESTIMATED GFR IS NOT APPLICABLE FOR DIALYSIS PATIENTS. Specimen slightly ictericHEPATIC FUNCTION [id number] 08:10:00 Test Item Value Reference Range Comments TOTAL PROTEIN (BEAKER) (test sium=664) 6.2 gm/dL 6.0-8.3 ALBUMIN (BEAKER) (test agwx=4456) 4.4 g/dL 3.5-5.0 BILIRUBIN TOTAL (BEAKER) (test gruq=274) 4.4 mg/dL 0.2-1.2 BILIRUBIN DIRECT (BEAKER) (test ygpu=675) 1.9 mg/dL 0.1-0.5 ALKALINE PHOSPHATASE (BEAKER) (test nsuz=749) 121 U/L 40-150 AST (SGOT) (BEAKER) (test shbc=216) 16 U/L 5-34 ALT (SGPT) (BEAKER) (test xzzp=534) 6 U/L 6-55 Specimen slightly ictericCALCIUM, [id number] 07:20:00 Test Item Value Reference Range Comments CALCIUM IONIZED (BEAKER) (test fbah=340) 1.01 mmol/L 1.12-1.27 PH, BLOOD (BEAKER) (test leue=1021) 7.49 CBC W/PLT COUNT & AUTO [id number] 06:59:00 Test Item Value Reference Range Comments WHITE BLOOD CELL COUNT (BEAKER) (test mmvc=445) 4.1 K/ L 3.5-10.5 RED BLOOD CELL COUNT (BEAKER) (test kqsq=161) 2.62 M/ L 4.63-6.08 HEMOGLOBIN (BEAKER) (test ukyz=243) 8.2 GM/DL 13.7-17.5 HEMATOCRIT (BEAKER) (test ftep=688) 24.9 % 40.1-51.0 MEAN CORPUSCULAR VOLUME (BEAKER) (test oihc=767) 95.0 fL 79.0-92.2 MEAN CORPUSCULAR HEMOGLOBIN (BEAKER) (test 31.3 pg 25.7-32.2 rwas=860) MEAN CORPUSCULAR HEMOGLOBIN CONC (BEAKER) (test 32.9 GM/DL 32.3-36.5 jnuu=087) RED CELL DISTRIBUTION WIDTH (BEAKER) (test 18.6 % 11.6-14.4 gnsa=592) PLATELET COUNT (BEAKER) (test cjml=007) 38 K/CU MM 150-450 MEAN PLATELET VOLUME (BEAKER) (test kjro=481) 9.3 fL 9.4-12.4 NUCLEATED RED BLOOD CELLS (BEAKER) (test 0 /100 WBC 0-0 vmam=537) NEUTROPHILS RELATIVE PERCENT (BEAKER) (test 66 % qowf=826) LYMPHOCYTES RELATIVE PERCENT (BEAKER) (test 12 % fvub=076) MONOCYTES RELATIVE PERCENT (BEAKER) (test 18 % plwr=947) EOSINOPHILS RELATIVE PERCENT (BEAKER) (test 3 % pcyj=750) BASOPHILS RELATIVE PERCENT (BEAKER) (test 1 % ldjw=488) NEUTROPHILS ABSOLUTE COUNT (BEAKER) (test 2.74 K/ L 1.78-5.38 awta=304) LYMPHOCYTES ABSOLUTE COUNT (BEAKER) (test 0.49 K/ L 1.32-3.57 torz=473) MONOCYTES ABSOLUTE COUNT (BEAKER) (test ztkk=578) 0.75 K/ L 0.30-0.82 EOSINOPHILS ABSOLUTE COUNT (BEAKER) (test 0.11 K/ L 0.04-0.54 ikgo=332) BASOPHILS ABSOLUTE COUNT (BEAKER) (test bzal=363) 0.02 K/ L 0.01-0.08 IMMATURE GRANULOCYTES-RELATIVE PERCENT (BEAKER) 1 % 0-1 (test dmzb=7552) PROTHROMBIN [id number] 06:56:00 Test Item Value Reference Range Comments PROTIME (BEAKER) (test nktc=150) 24.5 seconds 11.7-14.7 INR (BEAKER) (test kmdd=811) 2.2 <=5.9 RECOMMENDED COUMADIN/WARFARIN INR THERAPY RANGESSTANDARD DOSE: 2.0 - 3.0 Includes: PROPHYLAXIS forvenous thrombosis, systemic embolization; TREATMENT for venous thrombosis and/or pulmonary embolus.HIGH RISK: Target INR is 2.5-3.5 for patients with mechanical heart valves.BODY FLUID CELL COUNT WITH [id number] 18:36:00 Test Item Value Reference Range Comments APPEARANCE FLUID (BEAKER) (test ejai=380) Hazy Clear COLOR FLUID (BEAKER) (test hofg=838) Yellow Colorless, Straw RBC FLUID (BEAKER) (test hvti=819) 2000 /cu mm <=1 ADJUSTED WBC FLUID (BEAKER) (test fnii=7114) 96 /cu mm <=5 LINING CELLS (BEAKER) (test pxjc=6408) 2 /cu mm <=1 NEUTROPHILS FLUID (BEAKER) (test jwyp=4804) 4 % LYMPHS FLUID (BEAKER) (test gzfs=113) 11 % MONO/MACROPHAGE FLUID (BEAKER) (test aqeg=555) 85 % EOSINOPHILS FLUID (BEAKER) (test ihwm=024) 0 % BASO FLUID (BEAKER) (test kbgq=117) 0 % CONTAINER BODY FLUID (BEAKER) (test aiig=2071) EDTA Tube U/S, [id number] 12:49:00Limit to 4L due to AKIReason for exam:-> ascitesFINAL REPORT Indication: Ascites. Technique: Ultrasound guided paracentesis. Findings:Preliminary ultrasound confirms ascites. A safe window was identified in the midline (suprapubic). The procedure was explained to the patient and informed consent was signed. The skin was marked and prepped in standard sterile fashion. 2% lidocaine was used for local anesthesia. A 5 [place] needle catheter system was advanced into the peritoneal space. 3300 cc clear yellow fluid was taken off.Sample of the fluid was sent to the laboratory. Patient tolerated the procedure well. Impression: Ultrasound guided paracentesis. Signed: Inga, Aristeo MDReport Verified Date/ Time: 05/13/2018 12:49:12 Reading Location: [facility] [id number] Ultrasound Reading Room 12: 49 PMCALCIUM, [id number] 05:29:00 Test Item Value Reference Range Comments CALCIUM IONIZED (BEAKER) (test uick=454) 1.10 mmol/L 1.12-1.27 PH, BLOOD (BEAKER) (test twvt=9440) 7.35 B-TYPE NATRIURETIC FACTOR (BNP)2018-05-13 04:48:00 Test Item Value Reference Range Comments B-TYPE NATRIURETIC PEPTIDE (BEAKER) (test 274 pg/mL 0-100 qyzi=410) [id number] 04:44:00 Test Item Value Reference Range Comments PHOSPHORUS (BEAKER) (test cytv=784) 3.0 mg/dL 2.3-4.7 [id number] 04:44:00 Test Item Value Reference Range Comments MAGNESIUM (BEAKER) (test cybb=411) 2.0 mg/dL 1.6-2.6 COMPREHENSIVE METABOLIC [id number] 04:44:00 Test Item Value Reference Range Comments TOTAL PROTEIN (BEAKER) 6.2 gm/dL 6.0-8.3 (test sibd=962) ALBUMIN (BEAKER) (test 4.3 g/dL 3.5-5.0 fqfz=5922) ALKALINE PHOSPHATASE 134 U/L 40-150 (BEAKER) (test zfpi=105) BILIRUBIN TOTAL (BEAKER) 4.4 mg/dL 0.2-1.2 (test octg=857) SODIUM (BEAKER) (test 131 meq/L 136-145 ewne=539) POTASSIUM (BEAKER) (test 3.7 meq/L 3.5-5.1 ywbb=488) CHLORIDE (BEAKER) (test 96 meq/L 98-107 ediu=901) CO2 (BEAKER) (test 26 meq/L 22-29 ifvb=089) BLOOD UREA NITROGEN 20 mg/dL 7-21 (BEAKER) (test whvx=292) CREATININE (BEAKER) (test 1.60 mg/dL 0.57-1.25 wfxi=974) GLUCOSE RANDOM (BEAKER) 149 mg/dL 70-105 (test ymfv=205) CALCIUM (BEAKER) (test 10.0 mg/dL 8.4-10.2 dmlg=234) AST (SGOT) (BEAKER) (test 18 U/L 5-34 fuid=560) ALT (SGPT) (BEAKER) (test 7 U/L 6-55 ijeh=845) EGFR (BEAKER) (test 46 mL/min/1.73 sq m ESTIMATED GFR IS NOT ccar=9208) ACCURATE CREATININE CLEARANCE IN PREDICTING GLOMERULAR FILTRATION RATE. ESTIMATED GFR IS NOT APPLICABLE FOR DIALYSIS PATIENTS. Specimen slightly ictericHEPATIC FUNCTION [id number] 04:44:00 Test Item Value Reference Range Comments TOTAL PROTEIN (BEAKER) (test ycod=068) 6.2 gm/dL 6.0-8.3 ALBUMIN (BEAKER) (test exto=0753) 4.3 g/dL 3.5-5.0 BILIRUBIN TOTAL (BEAKER) (test ytqr=537) 4.4 mg/dL 0.2-1.2 BILIRUBIN DIRECT (BEAKER) (test leyl=307) 2.4 mg/dL 0.1-0.5 ALKALINE PHOSPHATASE (BEAKER) (test vrfa=254) 134 U/L 40-150 AST (SGOT) (BEAKER) (test bvqq=235) 18 U/L 5-34 ALT (SGPT) (BEAKER) (test suuk=213) 7 U/L 6-55 Specimen slightly ictericPROTHROMBIN [id number] 04:30:00 Test Item Value Reference Range Comments PROTIME (BEAKER) (test xygt=010) 23.8 seconds 11.7-14.7 INR (BEAKER) (test wbya=069) 2.1 <=5.9 RECOMMENDED COUMADIN/WARFARIN INR THERAPY RANGESSTANDARD DOSE: 2.0 - 3.0 Includes: PROPHYLAXIS forvenous thrombosis, systemic embolization; TREATMENT for venous thrombosis and/or pulmonary embolus.HIGH RISK: Target INR is 2.5-3.5 for patients with mechanical heart valves.CBC W/PLT COUNT & AUTO [id number] 04:19:00 Test Item Value Reference Range Comments WHITE BLOOD CELL COUNT (BEAKER) (test nama=031) 4.0 K/ L 3.5-10.5 RED BLOOD CELL COUNT (BEAKER) (test lmmv=045) 2.60 M/ L 4.63-6.08 HEMOGLOBIN (BEAKER) (test enym=647) 8.2 GM/DL 13.7-17.5 HEMATOCRIT (BEAKER) (test hnvf=241) 24.6 % 40.1-51.0 MEAN CORPUSCULAR VOLUME (BEAKER) (test drsx=105) 94.6 fL 79.0-92.2 MEAN CORPUSCULAR HEMOGLOBIN (BEAKER) (test 31.5 pg 25.7-32.2 enrl=690) MEAN CORPUSCULAR HEMOGLOBIN CONC (BEAKER) (test 33.3 GM/DL 32.3-36.5 gynq=244) RED CELL DISTRIBUTION WIDTH (BEAKER) (test 18.1 % 11.6-14.4 xpdb=805) PLATELET COUNT (BEAKER) (test ltdl=940) 46 K/CU MM 150-450 MEAN PLATELET VOLUME (BEAKER) (test vgat=132) 9.1 fL 9.4-12.4 NUCLEATED RED BLOOD CELLS (BEAKER) (test 0 /100 WBC 0-0 sqcy=397) NEUTROPHILS RELATIVE PERCENT (BEAKER) (test 62 % vqkp=397) LYMPHOCYTES RELATIVE PERCENT (BEAKER) (test 13 % oglv=765) MONOCYTES RELATIVE PERCENT (BEAKER) (test 21 % deii=965) EOSINOPHILS RELATIVE PERCENT (BEAKER) (test 3 % cdre=094) BASOPHILS RELATIVE PERCENT (BEAKER) (test 0 % sgjb=925) NEUTROPHILS ABSOLUTE COUNT (BEAKER) (test 2.49 K/ L 1.78-5.38 mdfc=071) LYMPHOCYTES ABSOLUTE COUNT (BEAKER) (test 0.53 K/ L 1.32-3.57 vtni=127) MONOCYTES ABSOLUTE COUNT (BEAKER) (test qiay=714) 0.86 K/ L 0.30-0.82 EOSINOPHILS ABSOLUTE COUNT (BEAKER) (test 0.10 K/ L 0.04-0.54 guhd=119) BASOPHILS ABSOLUTE COUNT (BEAKER) (test fanf=865) 0.01 K/ L 0.01-0.08 IMMATURE GRANULOCYTES-RELATIVE PERCENT (BEAKER) 1 % 0-1 (test ytsh=5269) TISSUE [id number] 14:55:00Surgical Pathology Report Case: [id number] Authorizing Provider: Karina Rain MD Collected: 05/08/20181999 Ordering Location: [address] Received: 05/11/2018 0837 Service Pathologist: Jesús Craig MD Specimen: Bone L3 VERTEBRAL BODYBONE BIOPSY:BONE AND BONE MARROW, NEGATIVE FOR MALIGNANCY.SEE DIAGNOSTIC COMMENT. Signing Pathologist Direct Phone Line: [phone] signed by Jesús Craig MD on 05/12/2018 [...] as thesampled material may not be fully correspondence representative. This case was discussed with Dr. Andrea Mason, loading inspector.70522, [id number], [id number], [id number] fracture of body thoracic vertebralL3 vertebral body [...] developed and its performance characteristics determined by [facility], Pathology Laboratory. It has not been cleared [...] clinical laboratory testing.RAD, CHEST, 1 VIEW, NON [id number] 13:56:00Reason for exam:->edemaShould this be performed at the bedside?->YesFINAL REPORT Chest one view compared to December 30 Discussion: Ill-defined bilateral airspace opacities are worse since the previous study although this may reflect a lesser inspiratory effort. No gross effusion or pneumothorax. Signed: Karina Pug[place]port Verified Date/Time : 05/12/2018 13:56:44 Reading Location: [facility] C013W Consult Reading Room CALCIUM, [id number] 06:58:00 Test Item Value Reference Range Comments CALCIUM IONIZED (BEAKER) (test eczn=498) 1.11 mmol/L 1.12-1.27 PH, BLOOD (BEAKER) (test xkyx=1617) 7.36 [id number] 06:31:00 Test Item Value Reference Range Comments PHOSPHORUS (BEAKER) (test tzxz=072) 2.9 mg/dL 2.3-4.7 [id number] 06:31:00 Test Item Value Reference Range Comments MAGNESIUM (BEAKER) (test gvvb=631) 1.9 mg/dL 1.6-2.6 COMPREHENSIVE METABOLIC [id number] 06:31:00 Test Item Value Reference Range Comments TOTAL PROTEIN (BEAKER) 5.8 gm/dL 6.0-8.3 (test ygid=535) ALBUMIN (BEAKER) (test 4.0 g/dL 3.5-5.0 djld=2972) ALKALINE PHOSPHATASE 124 U/L 40-150 (BEAKER) (test axhd=947) BILIRUBIN TOTAL (BEAKER) 4.3 mg/dL 0.2-1.2 (test ilmi=805) SODIUM (BEAKER) (test 128 meq/L 136-145 nrbw=636) POTASSIUM (BEAKER) (test 3.9 meq/L 3.5-5.1 nqrq=894) CHLORIDE (BEAKER) (test 92 meq/L 98-107 kmxd=836) CO2 (BEAKER) (test 26 meq/L 22-29 josl=630) BLOOD UREA NITROGEN 21 mg/dL 7-21 (BEAKER) (test vpro=833) CREATININE (BEAKER) (test 1.54 mg/dL 0.57-1.25 hnvb=959) GLUCOSE RANDOM (BEAKER) 113 mg/dL 70-105 (test ffex=489) CALCIUM (BEAKER) (test 9.5 mg/dL 8.4-10.2 dxvp=557) AST (SGOT) (BEAKER) (test 16 U/L 5-34 zugy=654) ALT (SGPT) (BEAKER) (test 6 U/L 6-55 nmuv=946) EGFR (BEAKER) (test 48 mL/min/1.73 sq m ESTIMATED GFR IS NOT yqnp=8532) ACCURATE CREATININE CLEARANCE IN PREDICTING GLOMERULAR FILTRATION RATE. ESTIMATED GFR IS NOT APPLICABLE FOR DIALYSIS PATIENTS. Specimen slightly ictericHEPATIC FUNCTION [id number] 06:31:00 Test Item Value Reference Range Comments TOTAL PROTEIN (BEAKER) (test frrc=412) 5.8 gm/dL 6.0-8.3 ALBUMIN (BEAKER) (test tylx=0259) 4.0 g/dL 3.5-5.0 BILIRUBIN TOTAL (BEAKER) (test hfau=846) 4.3 mg/dL 0.2-1.2 BILIRUBIN DIRECT (BEAKER) (test buom=282) 2.3 mg/dL 0.1-0.5 ALKALINE PHOSPHATASE (BEAKER) (test klpt=087) 124 U/L 40-150 AST (SGOT) (BEAKER) (test ayxy=250) 16 U/L 5-34 ALT (SGPT) (BEAKER) (test kynv=548) 6 U/L 6-55 Specimen slightly ictericPROTHROMBIN [id number] 06:16:00 Test Item Value Reference Range Comments PROTIME (BEAKER) (test cwhx=983) 22.3 seconds 11.7-14.7 INR (BEAKER) (test qmgp=586) 2.0 <=5.9 RECOMMENDED COUMADIN/WARFARIN INR THERAPY RANGESSTANDARD DOSE: 2.0 - 3.0 Includes: PROPHYLAXIS forvenous thrombosis, systemic embolization; TREATMENT for venous thrombosis and/or pulmonary embolus.HIGH RISK: Target INR is 2.5-3.5 for patients with mechanical heart valves.CBC W/PLT COUNT & AUTO [id number] 06:00:00 Test Item Value Reference Range Comments WHITE BLOOD CELL COUNT (BEAKER) (test aahq=013) 4.3 K/ L 3.5-10.5 RED BLOOD CELL COUNT (BEAKER) (test ieah=585) 2.68 M/ L 4.63-6.08 HEMOGLOBIN (BEAKER) (test lqjr=312) 8.3 GM/DL 13.7-17.5 HEMATOCRIT (BEAKER) (test kjrq=730) 25.0 % 40.1-51.0 MEAN CORPUSCULAR VOLUME (BEAKER) (test vxid=110) 93.3 fL 79.0-92.2 MEAN CORPUSCULAR HEMOGLOBIN (BEAKER) (test 31.0 pg 25.7-32.2 afmg=618) MEAN CORPUSCULAR HEMOGLOBIN CONC (BEAKER) (test 33.2 GM/DL 32.3-36.5 znch=573) RED CELL DISTRIBUTION WIDTH (BEAKER) (test 17.4 % 11.6-14.4 gyyf=763) PLATELET COUNT (BEAKER) (test nulv=899) 57 K/CU MM 150-450 MEAN PLATELET VOLUME (BEAKER) (test rili=621) 9.3 fL 9.4-12.4 NUCLEATED RED BLOOD CELLS (BEAKER) (test 0 /100 WBC 0-0 tqhd=906) NEUTROPHILS RELATIVE PERCENT (BEAKER) (test 61 % brua=689) LYMPHOCYTES RELATIVE PERCENT (BEAKER) (test 14 % ampo=759) MONOCYTES RELATIVE PERCENT (BEAKER) (test 17 % ncot=547) EOSINOPHILS RELATIVE PERCENT (BEAKER) (test 7 % uauo=173) BASOPHILS RELATIVE PERCENT (BEAKER) (test 1 % fbpt=247) NEUTROPHILS ABSOLUTE COUNT (BEAKER) (test 2.62 K/ L 1.78-5.38 xzyb=358) LYMPHOCYTES ABSOLUTE COUNT (BEAKER) (test 0.59 K/ L 1.32-3.57 jfsw=509) MONOCYTES ABSOLUTE COUNT (BEAKER) (test gxdr=023) 0.73 K/ L 0.30-0.82 EOSINOPHILS ABSOLUTE COUNT (BEAKER) (test 0.29 K/ L 0.04-0.54 wrio=845) BASOPHILS ABSOLUTE COUNT (BEAKER) (test ncuu=404) 0.02 K/ L 0.01-0.08 IMMATURE GRANULOCYTES-RELATIVE PERCENT (BEAKER) 1 % 0-1 (test fygn=7924) BLOOD [id number] 00:00:00 Test Item Value Reference Range Comments CULTURE (BEAKER) (test dgvz=0093) No growth in 5 days BLOOD [id number] 00:00:00 Test Item Value Reference Range Comments CULTURE (BEAKER) (test ujcv=3823) No growth in 5 days OSMOLALITY, [id number] 18:16:00 Test Item Value Reference Range Comments OSMOLALITY URINE (BEAKER) (test yxnv=003) 312 mOsm/kg 40-1400 BODY FLUID CELL COUNT WITH [id number] 17:17:00 Test Item Value Reference Range Comments APPEARANCE FLUID (BEAKER) (test ycxn=967) Clear Clear COLOR FLUID (BEAKER) (test yciu=496) Yellow Colorless, Straw RBC FLUID (BEAKER) (test glcl=297) 150 /cu mm <=1 ADJUSTED WBC FLUID (BEAKER) (test ntgr=6373) 72 /cu mm <=5 LINING CELLS (BEAKER) (test ffqj=6355) 2 /cu mm <=1 NEUTROPHILS FLUID (BEAKER) (test glyt=6652) 3 % LYMPHS FLUID (BEAKER) (test ifiy=579) 28 % MONO/MACROPHAGE FLUID (BEAKER) (test oecj=428) 68 % EOSINOPHILS FLUID (BEAKER) (test ycrc=999) 1 % BASO FLUID (BEAKER) (test ydzt=618) 0 % CONTAINER BODY FLUID (BEAKER) (test mrnw=1140) EDTA Tube SODIUM, RANDOM [id number] 17:09:00 Test Item Value Reference Range Comments SODIUM URINE (BEAKER) (test cysk=053) < meq/L Reference Range: No NormalsURINALYSIS W/ [id number] 17:08:00 Test Item Value Reference Range Comments COLOR (BEAKER) (test aqav=564) Yellow CLARITY (BEAKER) (test xcrw=364) Clear SPECIFIC GRAVITY UA (BEAKER) (test bgab=570) 1.012 1.001-1.035 PH UA (BEAKER) (test dlkq=798) 5.5 5.0-8.0 PROTEIN UA (BEAKER) (test sria=087) Negative Negative GLUCOSE UA (BEAKER) (test avji=777) Negative Negative KETONES UA (BEAKER) (test ydaw=335) Negative Negative BILIRUBIN UA (BEAKER) (test bokt=120) Negative Negative BLOOD UA (BEAKER) (test drtn=371) Negative Negative NITRITE UA (BEAKER) (test eznv=325) Negative Negative LEUKOCYTE ESTERASE UA (BEAKER) (test jahd=184) Negative Negative UROBILINOGEN UA (BEAKER) (test mpxv=055) 2.0 mg/dL 0.2-1.0 RBC UA (BEAKER) (test shxc=861) 0 /HPF WBC UA (BEAKER) (test lkbg=793) 1 /HPF MUCUS (BEAKER) (test eite=3798) Rare HYALINE CASTS (BEAKER) (test tveu=736) 15 /LPF SOURCE(BEAKER) (test uhdn=2884) CREATININE, RANDOM [id number] 17:05:00 Test Item Value Reference Range Comments CREATININE URINE (BEAKER) (test bwjy=389) 116.1 mg/dL Reference Range: No NormalsPROTEIN, RANDOM [id number] 17:05:00 Test Item Value Reference Range Comments PROTEIN, URINE (BEAKER) (test lkzb=8820) 7 mg/dL 0-14 RAD, SPINE, THORACIC, 2 [id number] 13:53:00Reason for exam:->back pain, s/p kyphoplastyFINAL REPORT [...] space is relatively maintained. Signed: Aristeo Xiong [facility] Verified Date/Time: 13:53:06 Reading Location: [facility] Mammo Reading Room RAD, SPINE, LUMBAR, 2 OR 3 [id number] 13:53:00Reason for exam:->back pain, s/p kyphoplastyFINAL REPORT [...] space is relatively maintained. Signed: Aristeo Xiong MDReport Verified Date/Time: 13:53:06 Reading Location: [facility] Mammo Reading Room U/S, [id number] 12:52:00Limit to 4L due to AKIReason for exam:-> ascitesShould this be performed at the bedside?->NoFINAL REPORT Ultrasound guided paracentesis, 05/11/2018. Clinical History: Ascites. Sedation: None. Rubber Worker: Elle. Second Vp Hr Assessment: None. Estimated Blood Loss: < 1 cc. [...] was achieved with 1% lidocaine, a 5 [place] one-step catheter was advanced into the peritoneal cavity under ultrasound guidance. After completion of drainage, the catheter was removed. There was no evidence of complication. Patient Disposition: The patient was discharged from the ultrasound department after the paracentesis, in good condition. Impression: Successful ultrasound guided paracentesis. Signed: Yaniv AlmeidaMDReport Verified Date/Time: 05/11/2018 12:52:57 Reading Location: [facility] B1 P006J Ultrasound Reading Room MISCELLANEOUS LAB [id number] 10:45:00 Test Item Value Reference Range Comments SCAN RESULT (test zity=[id number]) [id number] 07:31:00 Test Item Value Reference Range Comments PHOSPHORUS (BEAKER) (test phfu=445) 2.7 mg/dL 2.3-4.7 [id number] 07:31:00 Test Item Value Reference Range Comments MAGNESIUM (BEAKER) (test lgfr=503) 1.8 mg/dL 1.6-2.6 COMPREHENSIVE METABOLIC [id number] 07:31:00 Test Item Value Reference Range Comments TOTAL PROTEIN (BEAKER) 5.5 gm/dL 6.0-8.3 (test dlak=246) ALBUMIN (BEAKER) (test 3.5 g/dL 3.5-5.0 bdtu=3139) ALKALINE PHOSPHATASE 118 U/L 40-150 (BEAKER) (test djru=969) BILIRUBIN TOTAL (BEAKER) 5.1 mg/dL 0.2-1.2 (test acdd=435) SODIUM (BEAKER) (test 123 meq/L 136-145 hssc=700) POTASSIUM (BEAKER) (test 4.1 meq/L 3.5-5.1 vywf=010) CHLORIDE (BEAKER) (test 91 meq/L 98-107 cwbc=235) CO2 (BEAKER) (test 25 meq/L 22-29 zbxf=844) BLOOD UREA NITROGEN 21 mg/dL 7-21 (BEAKER) (test crhs=920) CREATININE (BEAKER) (test 1.59 mg/dL 0.57-1.25 dnoy=262) GLUCOSE RANDOM (BEAKER) 121 mg/dL 70-105 (test jsjd=062) CALCIUM (BEAKER) (test 9.4 mg/dL 8.4-10.2 nhcf=492) AST (SGOT) (BEAKER) (test 17 U/L 5-34 codf=542) ALT (SGPT) (BEAKER) (test 8 U/L 6-55 mkyq=145) EGFR (BEAKER) (test 46 mL/min/1.73 sq m ESTIMATED GFR IS NOT vwxs=3135) ACCURATE CREATININE CLEARANCE IN PREDICTING GLOMERULAR FILTRATION RATE. ESTIMATED GFR IS NOT APPLICABLE FOR DIALYSIS PATIENTS. Specimen moderately ictericHEPATIC FUNCTION [id number] 07:31:00 Test Item Value Reference Range Comments TOTAL PROTEIN (BEAKER) (test zmai=618) 5.5 gm/dL 6.0-8.3 ALBUMIN (BEAKER) (test jpqn=9837) 3.5 g/dL 3.5-5.0 BILIRUBIN TOTAL (BEAKER) (test bjns=822) 5.1 mg/dL 0.2-1.2 BILIRUBIN DIRECT (BEAKER) (test qdjt=272) 2.3 mg/dL 0.1-0.5 ALKALINE PHOSPHATASE (BEAKER) (test dugv=454) 118 U/L 40-150 AST (SGOT) (BEAKER) (test afvw=959) 17 U/L 5-34 ALT (SGPT) (BEAKER) (test xeow=536) 8 U/L 6-55 Specimen moderately ictericPROTHROMBIN [id number] 07:17:00 Test Item Value Reference Range Comments PROTIME (BEAKER) (test fcck=080) 23.8 seconds 11.7-14.7 INR (BEAKER) (test vuhn=507) 2.1 <=5.9 RECOMMENDED COUMADIN/WARFARIN INR THERAPY RANGESSTANDARD DOSE: 2.0 - 3.0 Includes: PROPHYLAXIS forvenous thrombosis, systemic embolization; TREATMENT for venous thrombosis and/or pulmonary embolus.HIGH RISK: Target INR is 2.5-3.5 for patients with mechanical heart valves.CBC W/PLT COUNT & AUTO [id number] 07:15:00 Test Item Value Reference Range Comments WHITE BLOOD CELL COUNT (BEAKER) (test ckde=292) 4.4 K/ L 3.5-10.5 RED BLOOD CELL COUNT (BEAKER) (test yrhn=169) 2.52 M/ L 4.63-6.08 HEMOGLOBIN (BEAKER) (test jxic=814) 7.9 GM/DL 13.7-17.5 HEMATOCRIT (BEAKER) (test qdfs=114) 23.7 % 40.1-51.0 MEAN CORPUSCULAR VOLUME (BEAKER) (test vhca=283) 94.0 fL 79.0-92.2 MEAN CORPUSCULAR HEMOGLOBIN (BEAKER) (test 31.3 pg 25.7-32.2 wklg=205) MEAN CORPUSCULAR HEMOGLOBIN CONC (BEAKER) (test 33.3 GM/DL 32.3-36.5 fprp=012) RED CELL DISTRIBUTION WIDTH (BEAKER) (test 17.6 % 11.6-14.4 panu=299) PLATELET COUNT (BEAKER) (test mgio=677) 52 K/CU MM 150-450 MEAN PLATELET VOLUME (BEAKER) (test eawj=504) 9.2 fL 9.4-12.4 NUCLEATED RED BLOOD CELLS (BEAKER) (test 0 /100 WBC 0-0 yrzn=315) NEUTROPHILS RELATIVE PERCENT (BEAKER) (test 62 % grkj=996) LYMPHOCYTES RELATIVE PERCENT (BEAKER) (test 10 % pwzu=428) MONOCYTES RELATIVE PERCENT (BEAKER) (test 19 % tmrl=346) EOSINOPHILS RELATIVE PERCENT (BEAKER) (test 8 % gjsi=181) BASOPHILS RELATIVE PERCENT (BEAKER) (test 0 % ykbs=037) NEUTROPHILS ABSOLUTE COUNT (BEAKER) (test 2.72 K/ L 1.78-5.38 bdxh=034) LYMPHOCYTES ABSOLUTE COUNT (BEAKER) (test 0.42 K/ L 1.32-3.57 ryee=993) MONOCYTES ABSOLUTE COUNT (BEAKER) (test ezcm=816) 0.84 K/ L 0.30-0.82 EOSINOPHILS ABSOLUTE COUNT (BEAKER) (test 0.34 K/ L 0.04-0.54 xkdh=505) BASOPHILS ABSOLUTE COUNT (BEAKER) (test bdaj=151) 0.00 K/ L 0.01-0.08 IMMATURE GRANULOCYTES-RELATIVE PERCENT (BEAKER) 1 % 0-1 (test exmx=8210) CALCIUM, [id number] 07:09:00 Test Item Value Reference Range Comments CALCIUM IONIZED (BEAKER) (test btbh=772) 1.09 mmol/L 1.12-1.27 PH, BLOOD (BEAKER) (test ejeu=3911) 7.36 BASIC METABOLIC [id number] 17:49:00 Test Item Value Reference Range Comments SODIUM (BEAKER) (test 124 meq/L 136-145 jogb=516) POTASSIUM (BEAKER) (test 3.8 meq/L 3.5-5.1 agbf=598) CHLORIDE (BEAKER) (test 91 meq/L 98-107 ukqp=841) CO2 (BEAKER) (test 22 meq/L 22-29 cnym=935) BLOOD UREA NITROGEN 19 mg/dL 7-21 (BEAKER) (test vncy=985) CREATININE (BEAKER) (test 1.49 mg/dL 0.57-1.25 tdaj=219) GLUCOSE RANDOM (BEAKER) 105 mg/dL 70-105 (test xqxc=324) CALCIUM (BEAKER) (test 9.3 mg/dL 8.4-10.2 clct=099) EGFR (BEAKER) (test 50 mL/min/1.73 sq m ESTIMATED GFR IS NOT qfrv=5407) ACCURATE CREATININE CLEARANCE IN PREDICTING GLOMERULAR FILTRATION RATE. ESTIMATED GFR IS NOT APPLICABLE FOR DIALYSIS PATIENTS. Call [id number] slightly ictericCALCIUM, [id number] 06:59:00 Test Item Value Reference Range Comments CALCIUM IONIZED (BEAKER) (test dklh=511) 1.00 mmol/L 1.12-1.27 PH, BLOOD (BEAKER) (test hnfz=1560) 7.47 [id number] 05:42:00 Test Item Value Reference Range Comments PHOSPHORUS (BEAKER) (test aoms=518) 2.7 mg/dL 2.3-4.7 [id number] 05:42:00 Test Item Value Reference Range Comments MAGNESIUM (BEAKER) (test fbsj=921) 1.7 mg/dL 1.6-2.6 HEPATIC FUNCTION [id number] 05:42:00 Test Item Value Reference Range Comments TOTAL PROTEIN (BEAKER) (test rdbf=203) 5.2 gm/dL 6.0-8.3 ALBUMIN (BEAKER) (test rrmh=3725) 3.5 g/dL 3.5-5.0 BILIRUBIN TOTAL (BEAKER) (test tmgk=613) 3.4 mg/dL 0.2-1.2 BILIRUBIN DIRECT (BEAKER) (test kzym=934) 1.8 mg/dL 0.1-0.5 ALKALINE PHOSPHATASE (BEAKER) (test lvfx=373) 106 U/L 40-150 AST (SGOT) (BEAKER) (test bvdu=694) 15 U/L 5-34 ALT (SGPT) (BEAKER) (test yzvs=940) 7 U/L 6-55 Specimen slightly ictericPROTHROMBIN [id number] 05:22:00 Test Item Value Reference Range Comments PROTIME (BEAKER) (test wkzu=454) 22.6 seconds 11.7-14.7 INR (BEAKER) (test wjuu=805) 2.0 <=5.9 RECOMMENDED COUMADIN/WARFARIN INR THERAPY RANGESSTANDARD DOSE: 2.0 - 3.0 Includes: PROPHYLAXIS forvenous thrombosis, systemic embolization; TREATMENT for venous thrombosis and/or pulmonary embolus.HIGH RISK: Target INR is 2.5-3.5 for patients with mechanical heart valves.CBC W/PLT COUNT & AUTO [id number] 05:10:00 Test Item Value Reference Range Comments WHITE BLOOD CELL COUNT (BEAKER) (test tizy=977) 5.6 K/ L 3.5-10.5 RED BLOOD CELL COUNT (BEAKER) (test icqq=106) 2.09 M/ L 4.63-6.08 HEMOGLOBIN (BEAKER) (test bksa=117) 6.5 GM/DL 13.7-17.5 HEMATOCRIT (BEAKER) (test huvb=975) 19.8 % 40.1-51.0 MEAN CORPUSCULAR VOLUME (BEAKER) (test didi=518) 94.7 fL 79.0-92.2 MEAN CORPUSCULAR HEMOGLOBIN (BEAKER) (test 31.1 pg 25.7-32.2 zrji=138) MEAN CORPUSCULAR HEMOGLOBIN CONC (BEAKER) (test 32.8 GM/DL 32.3-36.5 zwyf=727) RED CELL DISTRIBUTION WIDTH (BEAKER) (test 17.3 % 11.6-14.4 qqmg=188) PLATELET COUNT (BEAKER) (test kcpp=312) 57 K/CU MM 150-450 MEAN PLATELET VOLUME (BEAKER) (test lnvv=520) 8.9 fL 9.4-12.4 NUCLEATED RED BLOOD CELLS (BEAKER) (test 0 /100 WBC 0-0 lkoe=240) NEUTROPHILS RELATIVE PERCENT (BEAKER) (test 71 % pknu=338) LYMPHOCYTES RELATIVE PERCENT (BEAKER) (test 9 % rdnd=790) MONOCYTES RELATIVE PERCENT (BEAKER) (test 16 % wehg=879) EOSINOPHILS RELATIVE PERCENT (BEAKER) (test 3 % gjlc=953) BASOPHILS RELATIVE PERCENT (BEAKER) (test 0 % uxgh=759) NEUTROPHILS ABSOLUTE COUNT (BEAKER) (test 3.93 K/ L 1.78-5.38 tugl=921) LYMPHOCYTES ABSOLUTE COUNT (BEAKER) (test 0.52 K/ L 1.32-3.57 xetm=037) MONOCYTES ABSOLUTE COUNT (BEAKER) (test pwfq=999) 0.87 K/ L 0.30-0.82 EOSINOPHILS ABSOLUTE COUNT (BEAKER) (test 0.19 K/ L 0.04-0.54 neoo=134) BASOPHILS ABSOLUTE COUNT (BEAKER) (test ugej=439) 0.01 K/ L 0.01-0.08 IMMATURE GRANULOCYTES-RELATIVE PERCENT (BEAKER) 1 % 0-1 (test uqyq=1658) HEPATIC FUNCTION [id number] 11:05:00 Test Item Value Reference Range Comments TOTAL PROTEIN (BEAKER) (test hejc=869) 5.7 gm/dL 6.0-8.3 ALBUMIN (BEAKER) (test osdc=6946) 3.9 g/dL 3.5-5.0 BILIRUBIN TOTAL (BEAKER) (test bbbm=911) 4.9 mg/dL 0.2-1.2 BILIRUBIN DIRECT (BEAKER) (test ceaq=894) 2.0 mg/dL 0.1-0.5 ALKALINE PHOSPHATASE (BEAKER) (test fdql=369) 98 U/L 40-150 AST (SGOT) (BEAKER) (test khtp=611) 19 U/L 5-34 ALT (SGPT) (BEAKER) (test kifw=041) 8 U/L 6-55 Specimen moderately ictericBASIC METABOLIC [id number] 10:06:00 Test Item Value Reference Range Comments SODIUM (BEAKER) (test 132 meq/L 136-145 nmzb=756) POTASSIUM (BEAKER) (test 5.0 meq/L 3.5-5.1 ybca=922) CHLORIDE (BEAKER) (test 97 meq/L 98-107 xooq=367) CO2 (BEAKER) (test 25 meq/L 22-29 qqeg=628) BLOOD UREA NITROGEN 17 mg/dL 7-21 (BEAKER) (test ufcz=104) CREATININE (BEAKER) (test 1.33 mg/dL 0.57-1.25 jcqf=012) GLUCOSE RANDOM (BEAKER) 181 mg/dL 70-105 (test yrpn=443) CALCIUM (BEAKER) (test 9.4 mg/dL 8.4-10.2 vwnl=638) EGFR (BEAKER) (test 56 mL/min/1.73 sq m ESTIMATED GFR IS NOT ttuh=3799) ACCURATE CREATININE CLEARANCE IN PREDICTING GLOMERULAR FILTRATION RATE. ESTIMATED GFR IS NOT APPLICABLE FOR DIALYSIS PATIENTS. Specimen moderately ictericCBC W/PLT COUNT & AUTO [id number] 07: 45:00 Test Item Value Reference Range Comments WHITE BLOOD CELL COUNT (BEAKER) (test wdll=434) 3.4 K/ L 3.5-10.5 RED BLOOD CELL COUNT (BEAKER) (test ijce=689) 2.26 M/ L 4.63-6.08 HEMOGLOBIN (BEAKER) (test dsrr=577) 7.0 GM/DL 13.7-17.5 HEMATOCRIT (BEAKER) (test jqmr=063) 21.6 % 40.1-51.0 MEAN CORPUSCULAR VOLUME (BEAKER) (test yskt=560) 95.6 fL 79.0-92.2 MEAN CORPUSCULAR HEMOGLOBIN (BEAKER) (test 31.0 pg 25.7-32.2 ayxo=420) MEAN CORPUSCULAR HEMOGLOBIN CONC (BEAKER) (test 32.4 GM/DL 32.3-36.5 mogs=773) RED CELL DISTRIBUTION WIDTH (BEAKER) (test 17.3 % 11.6-14.4 atfw=058) PLATELET COUNT (BEAKER) (test enbi=228) 66 K/CU MM 150-450 MEAN PLATELET VOLUME (BEAKER) (test twjk=708) 9.8 fL 9.4-12.4 NUCLEATED RED BLOOD CELLS (BEAKER) (test 0 /100 WBC 0-0 igsb=992) NEUTROPHILS RELATIVE PERCENT (BEAKER) (test 87 % qbmu=815) LYMPHOCYTES RELATIVE PERCENT (BEAKER) (test 7 % njka=258) MONOCYTES RELATIVE PERCENT (BEAKER) (test 5 % xctj=811) EOSINOPHILS RELATIVE PERCENT (BEAKER) (test 0 % bzei=892) BASOPHILS RELATIVE PERCENT (BEAKER) (test 0 % wnav=671) NEUTROPHILS ABSOLUTE COUNT (BEAKER) (test 2.94 K/ L 1.78-5.38 erby=316) LYMPHOCYTES ABSOLUTE COUNT (BEAKER) (test 0.23 K/ L 1.32-3.57 dzzv=391) MONOCYTES ABSOLUTE COUNT (BEAKER) (test ijle=136) 0.17 K/ L 0.30-0.82 EOSINOPHILS ABSOLUTE COUNT (BEAKER) (test 0.00 K/ L 0.04-0.54 mnsj=240) BASOPHILS ABSOLUTE COUNT (BEAKER) (test gawp=085) 0.00 K/ L 0.01-0.08 IMMATURE GRANULOCYTES-RELATIVE PERCENT (BEAKER) 1 % 0-1 (test igdx=3055) PROTHROMBIN [id number] 06:06:00 Test Item Value Reference Range Comments PROTIME (BEAKER) (test bcfn=423) 19.1 seconds 11.7-14.7 INR (BEAKER) (test apbn=096) 1.6 <=5.9 RECOMMENDED COUMADIN/WARFARIN INR THERAPY RANGESSTANDARD DOSE: 2.0 - 3.0 Includes: PROPHYLAXIS forvenous thrombosis, systemic embolization; TREATMENT for venous thrombosis and/or pulmonary embolus.HIGH RISK: Target INR is 2.5-3.5 for patients with mechanical heart valves.[id number] 15:35:00 Test Item Value Reference Range Comments PROTIME (BEAKER) (test iuqh=996) 20.3 seconds 11.7-14.7 INR (BEAKER) (test pqjd=993) 1.7 <=5.9 PARTIAL THROMBOPLASTIN TIME (BEAKER) (test 46.2 seconds 22.5-36.0 cslm=195) RECOMMENDED COUMADIN/WARFARIN INR THERAPY RANGESSTANDARD DOSE: 2.0 - 3.0 Includes: PROPHYLAXIS forvenous thrombosis, systemic embolization; TREATMENT for venous thrombosis and/or pulmonary embolus.HIGH RISK: Target INR is 2.5-3.5 for patients with mechanical heart valves.30 minutes after administration of Kbdppzr58 minutes after administration of KcentraPROTHROMBIN [id number] 15:33:00 Test Item Value Reference Range Comments PROTIME (BEAKER) (test yswq=927) 20.1 seconds 11.7-14.7 INR (BEAKER) (test djue=188) 1.7 <=5.9 RECOMMENDED COUMADIN/WARFARIN INR THERAPY RANGESSTANDARD DOSE: 2.0 - 3.0 Includes: PROPHYLAXIS forvenous thrombosis, systemic embolization; TREATMENT for venous thrombosis and/or pulmonary embolus.HIGH RISK: Target INR is 2.5-3.5 for patients with mechanical heart valves.Please draw 30 mins after Kcentra doseBODY FLUID CULTURE + GRAM [id number] 11:29:00 Test Item Value Reference Range Comments CULTURE (BEAKER) (test cpue=8711) No growth GRAM STAIN RESULT (BEAKER) (test <1+ WBCs pvbs=3787) GRAM STAIN RESULT (BEAKER) (test No organisms seen imqn=[id number]) CT, [id number] 10:30:00FINAL REPORT HISTORY : r/o intra abdominal [...] T11 and L2 vertebral bodies. Signed: Nick Landeros MDReport Verified Date/Time: 05/08/2018 10:30:57 Reading Location: [facility] Diagnostic Imaging Reading Room - [place] [address] CBC W/PLT COUNT & AUTO [id number] 07:27:00 Test Item Value Reference Range Comments WHITE BLOOD CELL COUNT (BEAKER) (test ebif=758) 3.1 K/ L 3.5-10.5 RED BLOOD CELL COUNT (BEAKER) (test erjh=422) 2.27 M/ L 4.63-6.08 HEMOGLOBIN (BEAKER) (test bnrg=303) 7.1 GM/DL 13.7-17.5 HEMATOCRIT (BEAKER) (test qejf=365) 21.4 % 40.1-51.0 MEAN CORPUSCULAR VOLUME (BEAKER) (test focj=328) 94.3 fL 79.0-92.2 MEAN CORPUSCULAR HEMOGLOBIN (BEAKER) (test 31.3 pg 25.7-32.2 ibqp=447) MEAN CORPUSCULAR HEMOGLOBIN CONC (BEAKER) (test 33.2 GM/DL 32.3-36.5 bujt=576) RED CELL DISTRIBUTION WIDTH (BEAKER) (test 17.5 % 11.6-14.4 tlez=165) PLATELET COUNT (BEAKER) (test byss=408) 43 K/CU MM 150-450 MEAN PLATELET VOLUME (BEAKER) (test xiem=153) 8.7 fL 9.4-12.4 NUCLEATED RED BLOOD CELLS (BEAKER) (test 0 /100 WBC 0-0 iklu=108) NEUTROPHILS RELATIVE PERCENT (BEAKER) (test 60 % acez=871) LYMPHOCYTES RELATIVE PERCENT (BEAKER) (test 16 % eklt=065) MONOCYTES RELATIVE PERCENT (BEAKER) (test 17 % emca=920) EOSINOPHILS RELATIVE PERCENT (BEAKER) (test 7 % sqas=179) BASOPHILS RELATIVE PERCENT (BEAKER) (test 0 % ywxg=040) NEUTROPHILS ABSOLUTE COUNT (BEAKER) (test 1.85 K/ L 1.78-5.38 qzpy=990) LYMPHOCYTES ABSOLUTE COUNT (BEAKER) (test 0.48 K/ L 1.32-3.57 item=996) MONOCYTES ABSOLUTE COUNT (BEAKER) (test ucud=669) 0.54 K/ L 0.30-0.82 EOSINOPHILS ABSOLUTE COUNT (BEAKER) (test 0.22 K/ L 0.04-0.54 vpga=538) BASOPHILS ABSOLUTE COUNT (BEAKER) (test ozzd=589) 0.00 K/ L 0.01-0.08 IMMATURE GRANULOCYTES-RELATIVE PERCENT (BEAKER) 0 % 0-1 (test fmhe=0025) CBC W/PLT COUNT & AUTO [id number] 07:26:00 Test Item Value Reference Range Comments WHITE BLOOD CELL COUNT (BEAKER) (test wekv=801) 2.9 K/ L 3.5-10.5 RED BLOOD CELL COUNT (BEAKER) (test fymu=300) 2.25 M/ L 4.63-6.08 HEMOGLOBIN (BEAKER) (test snel=924) 7.1 GM/DL 13.7-17.5 HEMATOCRIT (BEAKER) (test hkzo=752) 21.4 % 40.1-51.0 MEAN CORPUSCULAR VOLUME (BEAKER) (test tsuq=898) 95.1 fL 79.0-92.2 MEAN CORPUSCULAR HEMOGLOBIN (BEAKER) (test 31.6 pg 25.7-32.2 tubu=373) MEAN CORPUSCULAR HEMOGLOBIN CONC (BEAKER) (test 33.2 GM/DL 32.3-36.5 xsao=150) RED CELL DISTRIBUTION WIDTH (BEAKER) (test 17.5 % 11.6-14.4 xtdi=760) PLATELET COUNT (BEAKER) (test vqxi=183) 44 K/CU MM 150-450 MEAN PLATELET VOLUME (BEAKER) (test glxn=927) 9.3 fL 9.4-12.4 NUCLEATED RED BLOOD CELLS (BEAKER) (test 0 /100 WBC 0-0 zadq=077) NEUTROPHILS RELATIVE PERCENT (BEAKER) (test 59 % kbzb=608) LYMPHOCYTES RELATIVE PERCENT (BEAKER) (test 16 % pxym=313) MONOCYTES RELATIVE PERCENT (BEAKER) (test 17 % zqef=979) EOSINOPHILS RELATIVE PERCENT (BEAKER) (test 7 % kplf=053) BASOPHILS RELATIVE PERCENT (BEAKER) (test 0 % jfeg=942) NEUTROPHILS ABSOLUTE COUNT (BEAKER) (test 1.72 K/ L 1.78-5.38 legz=766) LYMPHOCYTES ABSOLUTE COUNT (BEAKER) (test 0.46 K/ L 1.32-3.57 ziml=797) MONOCYTES ABSOLUTE COUNT (BEAKER) (test thmc=383) 0.51 K/ L 0.30-0.82 EOSINOPHILS ABSOLUTE COUNT (BEAKER) (test 0.21 K/ L 0.04-0.54 gtgx=738) BASOPHILS ABSOLUTE COUNT (BEAKER) (test nalw=983) 0.01 K/ L 0.01-0.08 IMMATURE GRANULOCYTES-RELATIVE PERCENT (BEAKER) 1 % 0-1 (test qdff=7224) BASIC METABOLIC [id number] 07:00:00 Test Item Value Reference Range Comments SODIUM (BEAKER) (test 130 meq/L 136-145 lsdn=816) POTASSIUM (BEAKER) (test 3.6 meq/L 3.5-5.1 ycma=955) CHLORIDE (BEAKER) (test 94 meq/L 98-107 egzm=522) CO2 (BEAKER) (test 27 meq/L 22-29 kjvu=629) BLOOD UREA NITROGEN 19 mg/dL 7-21 (BEAKER) (test fmju=944) CREATININE (BEAKER) (test 1.40 mg/dL 0.57-1.25 jlpa=190) GLUCOSE RANDOM (BEAKER) 111 mg/dL 70-105 (test rpaq=686) CALCIUM (BEAKER) (test 9.2 mg/dL 8.4-10.2 fkyy=007) EGFR (BEAKER) (test 53 mL/min/1.73 sq m ESTIMATED GFR IS NOT erzf=9378) ACCURATE CREATININE CLEARANCE IN PREDICTING GLOMERULAR FILTRATION RATE. ESTIMATED GFR IS NOT APPLICABLE FOR DIALYSIS PATIENTS. Specimen moderately ictericCOMPREHENSIVE METABOLIC [id number] 07:00:00 Test Item Value Reference Range Comments TOTAL PROTEIN (BEAKER) 5.7 gm/dL 6.0-8.3 (test drpr=478) ALBUMIN (BEAKER) (test 4.0 g/dL 3.5-5.0 yrou=5879) ALKALINE PHOSPHATASE 92 U/L 40-150 (BEAKER) (test ufpq=547) BILIRUBIN TOTAL (BEAKER) 4.6 mg/dL 0.2-1.2 (test nghd=913) SODIUM (BEAKER) (test 130 meq/L 136-145 yypu=964) POTASSIUM (BEAKER) (test 3.6 meq/L 3.5-5.1 ipyp=046) CHLORIDE (BEAKER) (test 94 meq/L 98-107 eguh=882) CO2 (BEAKER) (test 27 meq/L 22-29 vdus=786) BLOOD UREA NITROGEN 19 mg/dL 7-21 (BEAKER) (test vyaf=818) CREATININE (BEAKER) (test 1.40 mg/dL 0.57-1.25 uicj=890) GLUCOSE RANDOM (BEAKER) 111 mg/dL 70-105 (test yefo=946) CALCIUM (BEAKER) (test 9.2 mg/dL 8.4-10.2 pbqe=255) AST (SGOT) (BEAKER) (test 16 U/L 5-34 whae=631) ALT (SGPT) (BEAKER) (test 6 U/L 6-55 tbae=144) EGFR (BEAKER) (test 53 mL/min/1.73 sq m ESTIMATED GFR IS NOT uwrm=9008) ACCURATE CREATININE CLEARANCE IN PREDICTING GLOMERULAR FILTRATION RATE. ESTIMATED GFR IS NOT APPLICABLE FOR DIALYSIS PATIENTS. Specimen moderately ictericHEPATIC FUNCTION [id number] 07:00:00 Test Item Value Reference Range Comments TOTAL PROTEIN (BEAKER) (test omdj=775) 5.7 gm/dL 6.0-8.3 ALBUMIN (BEAKER) (test ayzw=6570) 4.0 g/dL 3.5-5.0 BILIRUBIN TOTAL (BEAKER) (test xcos=490) 4.6 mg/dL 0.2-1.2 BILIRUBIN DIRECT (BEAKER) (test yegj=724) 1.8 mg/dL 0.1-0.5 ALKALINE PHOSPHATASE (BEAKER) (test sebz=014) 92 U/L 40-150 AST (SGOT) (BEAKER) (test lxcj=498) 16 U/L 5-34 ALT (SGPT) (BEAKER) (test vuox=668) 6 U/L 6-55 Specimen moderately [id number] 06:57:00 Test Item Value Reference Range Comments PARTIAL THROMBOPLASTIN TIME (BEAKER) (test 47.9 seconds 22.5-36.0 fqwa=393) PROTHROMBIN [id number] 06:55:00 Test Item Value Reference Range Comments PROTIME (BEAKER) (test ixaq=784) 23.7 seconds 11.7-14.7 INR (BEAKER) (test ykzc=487) 2.1 <=5.9 RECOMMENDED COUMADIN/WARFARIN INR THERAPY RANGESSTANDARD DOSE: 2.0 - 3.0 Includes: PROPHYLAXIS forvenous thrombosis, systemic embolization; TREATMENT for venous thrombosis and/or pulmonary embolus.HIGH RISK: Target INR is 2.5-3.5 for patients with mechanical heart valves.MR, SPINE, LUMBAR, WITHOUT [id number] 16:57:00FINAL REPORT MRI lumbar spine without contrast [...] Bain Verified Date/Time: 05/07/2018 16:57:00 Reading Location: [facility] Radiology Reading Room LACTIC ACID, VENOUS, WHOLE [id number] 14:13:00 Test Item Value Reference Range Comments LACTATE BLOOD VENOUS (2) (BEAKER) (test 2.6 mmol/L 0.5-2.2 cysp=2688) Effective 02/28/2016: Units/Reference Range ChangeNew: 0.5-2.2 mmol/L Previous: 5 -20 mg/dLSpecimen slightly ictericHEMOGLOBIN AND [id number] 13:51:00 Test Item Value Reference Range Comments HEMOGLOBIN (BEAKER) (test tyfg=949) 7.1 GM/DL 13.7-17.5 HEMATOCRIT (BEAKER) (test ldxr=483) 21.7 % 40.1-51.0 U/S, RENAL, [id number] 09:48:00Reason for exam:->AKIFINAL REPORT Renal ultrasound Clinical [...] appearance of the kidneys. Ascites. Signed: Re[facility] Verified Date/Time: 05/07/2018 09:48:55 Reading Location: [address] Ultrasound Reading Room Electronically signed by: REECE HAQUE MD on 09:[id number] 09:04:00 Test Item Value Reference Range Comments MAGNESIUM (BEAKER) (test yxli=975) 2.0 mg/dL 1.6-2.6 COMPREHENSIVE METABOLIC [id number] 09:04:00 Test Item Value Reference Range Comments TOTAL PROTEIN (BEAKER) 5.2 gm/dL 6.0-8.3 (test sccw=807) ALBUMIN (BEAKER) (test 3.5 g/dL 3.5-5.0 bplm=2907) ALKALINE PHOSPHATASE 96 U/L 40-150 (BEAKER) (test gtie=661) BILIRUBIN TOTAL (BEAKER) 4.1 mg/dL 0.2-1.2 (test ubpf=093) SODIUM (BEAKER) (test 129 meq/L 136-145 jrws=378) POTASSIUM (BEAKER) (test 3.8 meq/L 3.5-5.1 fgeu=095) CHLORIDE (BEAKER) (test 96 meq/L 98-107 ogga=555) CO2 (BEAKER) (test 25 meq/L 22-29 qbzy=988) BLOOD UREA NITROGEN 22 mg/dL 7-21 (BEAKER) (test mcjl=362) CREATININE (BEAKER) (test 1.57 mg/dL 0.57-1.25 mzpv=559) GLUCOSE RANDOM (BEAKER) 122 mg/dL 70-105 (test zgiu=785) CALCIUM (BEAKER) (test 8.9 mg/dL 8.4-10.2 otbz=869) AST (SGOT) (BEAKER) (test 15 U/L 5-34 mnwd=341) ALT (SGPT) (BEAKER) (test 7 U/L 6-55 akxe=935) EGFR (BEAKER) (test 47 mL/min/1.73 sq m ESTIMATED GFR IS NOT bjoe=3732) ACCURATE CREATININE CLEARANCE IN PREDICTING GLOMERULAR FILTRATION RATE. ESTIMATED GFR IS NOT APPLICABLE FOR DIALYSIS PATIENTS. Specimen moderately ictericHEPATIC FUNCTION [id number] 09:04:00 Test Item Value Reference Range Comments TOTAL PROTEIN (BEAKER) (test whlc=399) 5.2 gm/dL 6.0-8.3 ALBUMIN (BEAKER) (test bmfc=6097) 3.5 g/dL 3.5-5.0 BILIRUBIN TOTAL (BEAKER) (test ftab=935) 4.1 mg/dL 0.2-1.2 BILIRUBIN DIRECT (BEAKER) (test aydu=915) 1.8 mg/dL 0.1-0.5 ALKALINE PHOSPHATASE (BEAKER) (test cjuk=862) 96 U/L 40-150 AST (SGOT) (BEAKER) (test grjn=874) 15 U/L 5-34 ALT (SGPT) (BEAKER) (test bdcu=658) 7 U/L 6-55 Specimen moderately ictericCBC W/PLT COUNT & AUTO [id number] 08: 26:00 Test Item Value Reference Range Comments WHITE BLOOD CELL COUNT (BEAKER) (test deyi=108) 2.7 K/ L 3.5-10.5 RED BLOOD CELL COUNT (BEAKER) (test ewgr=995) 2.13 M/ L 4.63-6.08 HEMOGLOBIN (BEAKER) (test esmw=218) 6.8 GM/DL 13.7-17.5 HEMATOCRIT (BEAKER) (test ncvc=562) 19.5 % 40.1-51.0 MEAN CORPUSCULAR VOLUME (BEAKER) (test jcqy=361) 91.5 fL 79.0-92.2 MEAN CORPUSCULAR HEMOGLOBIN (BEAKER) (test 31.9 pg 25.7-32.2 rbnj=744) MEAN CORPUSCULAR HEMOGLOBIN CONC (BEAKER) (test 34.9 GM/DL 32.3-36.5 jvxh=096) RED CELL DISTRIBUTION WIDTH (BEAKER) (test 17.5 % 11.6-14.4 tiam=233) PLATELET COUNT (BEAKER) (test exbs=390) 52 K/CU MM 150-450 MEAN PLATELET VOLUME (BEAKER) (test qefp=674) 9.1 fL 9.4-12.4 NUCLEATED RED BLOOD CELLS (BEAKER) (test 0 /100 WBC 0-0 gxhk=356) NEUTROPHILS RELATIVE PERCENT (BEAKER) (test 62 % ldvv=277) LYMPHOCYTES RELATIVE PERCENT (BEAKER) (test 16 % gvld=987) MONOCYTES RELATIVE PERCENT (BEAKER) (test 17 % ykvj=666) EOSINOPHILS RELATIVE PERCENT (BEAKER) (test 4 % fcgh=337) BASOPHILS RELATIVE PERCENT (BEAKER) (test 0 % mepv=806) NEUTROPHILS ABSOLUTE COUNT (BEAKER) (test 1.66 K/ L 1.78-5.38 ayej=083) LYMPHOCYTES ABSOLUTE COUNT (BEAKER) (test 0.43 K/ L 1.32-3.57 ptqp=056) MONOCYTES ABSOLUTE COUNT (BEAKER) (test tcyy=796) 0.44 K/ L 0.30-0.82 EOSINOPHILS ABSOLUTE COUNT (BEAKER) (test 0.11 K/ L 0.04-0.54 tiqp=745) BASOPHILS ABSOLUTE COUNT (BEAKER) (test zjqn=870) 0.00 K/ L 0.01-0.08 IMMATURE GRANULOCYTES-RELATIVE PERCENT (BEAKER) 1 % 0-1 (test rwhj=1588) PROTHROMBIN [id number] 08:08:00 Test Item Value Reference Range Comments PROTIME (BEAKER) (test hjxw=910) 28.3 seconds 11.7-14.7 INR (BEAKER) (test oyph=523) 2.7 <=5.9 RECOMMENDED COUMADIN/WARFARIN INR THERAPY RANGESSTANDARD DOSE: 2.0 - 3.0 Includes: PROPHYLAXIS forvenous thrombosis, systemic embolization; TREATMENT for venous thrombosis and/or pulmonary embolus.HIGH RISK: Target INR is 2.5-3.5 for patients with mechanical heart valves.[id number] 19:47:00 Test Item Value Reference Range Comments SODIUM (BEAKER) (test rweu=706) 129 meq/L 136-145 POTASSIUM (BEAKER) (test tktg=215) 4.6 meq/L 3.5-5.1 CHLORIDE (BEAKER) (test ibso=790) 96 meq/L 98-107 CO2 (BEAKER) (test zgnw=550) 22 meq/L 22-29 Call [id number] AND [id number] 19:27:00 Test Item Value Reference Range Comments HEMOGLOBIN (BEAKER) (test fiog=616) 7.1 GM/DL 13.7-17.5 HEMATOCRIT (BEAKER) (test fxkw=031) 21.4 % 40.1-51.0 Draw after transfusion of 1u RBC, notify hospitalist if Hgb remains less than 7.0HEMOGLOBIN AND [id number] 11:52:00 Test Item Value Reference Range Comments HEMOGLOBIN (BEAKER) (test dtov=585) 6.3 GM/DL 13.7-17.5 HEMATOCRIT (BEAKER) (test sgag=650) 18.9 % 40.1-51.0 Notify Hepatology if Hgb< 7.0YUNIOR Sandoval PA-CPager#: .BASIC METABOLIC [id number] 05:55:00 Test Item Value Reference Range Comments SODIUM (BEAKER) (test 129 meq/L 136-145 uhus=007) POTASSIUM (BEAKER) (test 5.2 meq/L 3.5-5.1 nywe=847) CHLORIDE (BEAKER) (test 97 meq/L 98-107 znnw=838) CO2 (BEAKER) (test 22 meq/L 22-29 eylq=282) BLOOD UREA NITROGEN 28 mg/dL 7-21 (BEAKER) (test pypd=673) CREATININE (BEAKER) (test 1.95 mg/dL 0.57-1.25 igas=580) GLUCOSE RANDOM (BEAKER) 102 mg/dL 70-105 (test xkfd=708) CALCIUM (BEAKER) (test 9.4 mg/dL 8.4-10.2 hklw=893) EGFR (BEAKER) (test 36 mL/min/1.73 sq m ESTIMATED GFR IS NOT mitv=7336) ACCURATE CREATININE CLEARANCE IN PREDICTING GLOMERULAR FILTRATION RATE. ESTIMATED GFR IS NOT APPLICABLE FOR DIALYSIS PATIENTS. Specimen slightly ictericHEPATIC FUNCTION [id number] 05:55:00 Test Item Value Reference Range Comments TOTAL PROTEIN (BEAKER) (test hosd=408) 5.6 gm/dL 6.0-8.3 ALBUMIN (BEAKER) (test gpph=9702) 3.4 g/dL 3.5-5.0 BILIRUBIN TOTAL (BEAKER) (test csdm=253) 3.7 mg/dL 0.2-1.2 BILIRUBIN DIRECT (BEAKER) (test qaxr=464) 2.5 mg/dL 0.1-0.5 ALKALINE PHOSPHATASE (BEAKER) (test ggow=038) 108 U/L 40-150 AST (SGOT) (BEAKER) (test mfnm=703) 17 U/L 5-34 ALT (SGPT) (BEAKER) (test rtwe=547) 7 U/L 6-55 Specimen slightly ictericCBC W/PLT COUNT & AUTO [id number] 05:42 :00 Test Item Value Reference Range Comments WHITE BLOOD CELL COUNT (BEAKER) (test mfju=234) 3.7 K/ L 3.5-10.5 RED BLOOD CELL COUNT (BEAKER) (test ftjn=787) 2.10 M/ L 4.63-6.08 HEMOGLOBIN (BEAKER) (test awpq=801) 6.5 GM/DL 13.7-17.5 HEMATOCRIT (BEAKER) (test omyy=636) 19.8 % 40.1-51.0 MEAN CORPUSCULAR VOLUME (BEAKER) (test aasf=846) 94.3 fL 79.0-92.2 MEAN CORPUSCULAR HEMOGLOBIN (BEAKER) (test 31.0 pg 25.7-32.2 vkcy=747) MEAN CORPUSCULAR HEMOGLOBIN CONC (BEAKER) (test 32.8 GM/DL 32.3-36.5 sujm=232) RED CELL DISTRIBUTION WIDTH (BEAKER) (test 16.4 % 11.6-14.4 kgyd=628) PLATELET COUNT (BEAKER) (test bsai=461) 54 K/CU MM 150-450 MEAN PLATELET VOLUME (BEAKER) (test dlmd=625) 9.8 fL 9.4-12.4 NUCLEATED RED BLOOD CELLS (BEAKER) (test 0 /100 WBC 0-0 ghnw=876) NEUTROPHILS RELATIVE PERCENT (BEAKER) (test 62 % oxkv=851) LYMPHOCYTES RELATIVE PERCENT (BEAKER) (test 15 % rwtt=174) MONOCYTES RELATIVE PERCENT (BEAKER) (test 18 % djfi=792) EOSINOPHILS RELATIVE PERCENT (BEAKER) (test 3 % heye=632) BASOPHILS RELATIVE PERCENT (BEAKER) (test 0 % kuhm=767) NEUTROPHILS ABSOLUTE COUNT (BEAKER) (test 2.27 K/ L 1.78-5.38 eghy=160) LYMPHOCYTES ABSOLUTE COUNT (BEAKER) (test 0.56 K/ L 1.32-3.57 gzob=702) MONOCYTES ABSOLUTE COUNT (BEAKER) (test oqzm=241) 0.66 K/ L 0.30-0.82 EOSINOPHILS ABSOLUTE COUNT (BEAKER) (test 0.12 K/ L 0.04-0.54 piqj=795) BASOPHILS ABSOLUTE COUNT (BEAKER) (test xbir=428) 0.01 K/ L 0.01-0.08 IMMATURE GRANULOCYTES-RELATIVE PERCENT (BEAKER) 1 % 0-1 (test rove=9060) PROTHROMBIN TIME/[id number] 05:34:00 Test Item Value Reference Range Comments PROTIME (BEAKER) (test ujpa=512) 21.7 seconds 11.7-14.7 INR (BEAKER) (test lphn=686) 1.9 <=5.9 RECOMMENDED COUMADIN/WARFARIN INR THERAPY RANGESSTANDARD DOSE: 2.0 - 3.0 Includes: PROPHYLAXIS forvenous thrombosis, systemic embolization; TREATMENT for venous thrombosis and/or pulmonary embolus.HIGH RISK: Target INR is 2.5-3.5 for patients with mechanical heart valves.EOSINOPHIL SMEAR, [id number] 21: 51:00 Test Item Value Reference Range Comments EOSINOPHIL SMEAR, URINE (BEAKER) (test No EOS seen No EOS seen hkwy=9419) BODY FLUID CELL COUNT WITH [id number] 21:42:00 Test Item Value Reference Range Comments APPEARANCE FLUID (BEAKER) (test xupp=814) Hazy Clear COLOR FLUID (BEAKER) (test zibg=042) Yellow Colorless, Straw RBC FLUID (BEAKER) (test unjp=934) 70 /cu mm <=1 ADJUSTED WBC FLUID (BEAKER) (test daet=7489) 44 /cu mm <=5 LINING CELLS (BEAKER) (test dxlg=2484) 8 /cu mm <=1 NEUTROPHILS FLUID (BEAKER) (test sqqy=1340) 0 % LYMPHS FLUID (BEAKER) (test ehdm=977) 11 % MONO/MACROPHAGE FLUID (BEAKER) (test hhzj=616) 89 % EOSINOPHILS FLUID (BEAKER) (test twev=134) 0 % BASO FLUID (BEAKER) (test ntiw=883) 0 % CONTAINER BODY FLUID (BEAKER) (test mcnj=7061) EDTA Tube OSMOLALITY, [id number] 19:46:00 Test Item Value Reference Range Comments OSMOLALITY URINE (BEAKER) (test lcpd=779) 355 mOsm/kg 40-1400 SODIUM, RANDOM [id number] 19:35:00 Test Item Value Reference Range Comments SODIUM URINE (BEAKER) (test dsub=717) < meq/L Reference Range: No NormalsPROTEIN, RANDOM [id number] 19:27:00 Test Item Value Reference Range Comments PROTEIN, URINE (BEAKER) (test xybs=4043) 7 mg/dL 0-14 CREATININE, RANDOM [id number] 19:25:00 Test Item Value Reference Range Comments CREATININE URINE (BEAKER) (test cspt=125) 150.3 mg/dL Reference Range: No [id number] 16:26:00 Test Item Value Reference Range Comments PREALBUMIN (BEAKER) (test tbuw=188) 5 mg/dL 14-45 Listed for OLT - Nutrition Surveillance ([facility] Hepatology Transplant Team)U/S, [id number] 14:56:00Reason for exam:->ascites - limit to 5L [...] MDReport Verified Date/Time: 05/05/2018 14:56:27 Reading Location: [address] Ultrasound Reading [facility] [id number] 09:36:00 Test Item Value Reference Range Comments SODIUM (BEAKER) (test 125 meq/L 136-145 heaq=765) POTASSIUM (BEAKER) (test 4.2 meq/L 3.5-5.1 sorx=807) CHLORIDE (BEAKER) (test 95 meq/L 98-107 yxfe=279) CO2 (BEAKER) (test 23 meq/L 22-29 ujsv=742) BLOOD UREA NITROGEN 29 mg/dL 7-21 (BEAKER) (test pgiu=670) CREATININE (BEAKER) (test 2.01 mg/dL 0.57-1.25 bssy=030) GLUCOSE RANDOM (BEAKER) 112 mg/dL 70-105 (test klwz=274) CALCIUM (BEAKER) (test 9.2 mg/dL 8.4-10.2 cbve=642) EGFR (BEAKER) (test 35 mL/min/1.73 sq m ESTIMATED GFR IS NOT mxag=9259) ACCURATE CREATININE CLEARANCE IN PREDICTING GLOMERULAR FILTRATION RATE. ESTIMATED GFR IS NOT APPLICABLE FOR DIALYSIS PATIENTS. Specimen slightly ictericHEPATIC FUNCTION [id number] 09:36:00 Test Item Value Reference Range Comments TOTAL PROTEIN (BEAKER) (test lyga=656) 5.3 gm/dL 6.0-8.3 ALBUMIN (BEAKER) (test igyg=4229) 3.0 g/dL 3.5-5.0 BILIRUBIN TOTAL (BEAKER) (test bmfo=206) 4.1 mg/dL 0.2-1.2 BILIRUBIN DIRECT (BEAKER) (test zvqp=753) 2.8 mg/dL 0.1-0.5 ALKALINE PHOSPHATASE (BEAKER) (test fxea=210) 115 U/L 40-150 AST (SGOT) (BEAKER) (test xnfa=514) 20 U/L 5-34 ALT (SGPT) (BEAKER) (test fzke=463) 9 U/L 6-55 Specimen slightly ictericCBC W/PLT COUNT & AUTO [id number] 09:28 :00 Test Item Value Reference Range Comments WHITE BLOOD CELL COUNT (BEAKER) (test lkao=443) 4.4 K/ L 3.5-10.5 RED BLOOD CELL COUNT (BEAKER) (test bbro=415) 2.20 M/ L 4.63-6.08 HEMOGLOBIN (BEAKER) (test xxms=020) 7.1 GM/DL 13.7-17.5 HEMATOCRIT (BEAKER) (test yjjg=809) 21.1 % 40.1-51.0 MEAN CORPUSCULAR VOLUME (BEAKER) (test wfxx=129) 95.9 fL 79.0-92.2 MEAN CORPUSCULAR HEMOGLOBIN (BEAKER) (test 32.3 pg 25.7-32.2 ktsx=631) MEAN CORPUSCULAR HEMOGLOBIN CONC (BEAKER) (test 33.6 GM/DL 32.3-36.5 vlvp=095) RED CELL DISTRIBUTION WIDTH (BEAKER) (test 16.7 % 11.6-14.4 iwqe=878) PLATELET COUNT (BEAKER) (test rjyl=614) 60 K/CU MM 150-450 MEAN PLATELET VOLUME (BEAKER) (test thlv=914) 9.7 fL 9.4-12.4 NUCLEATED RED BLOOD CELLS (BEAKER) (test 0 /100 WBC 0-0 dpno=978) NEUTROPHILS RELATIVE PERCENT (BEAKER) (test 71 % naht=111) LYMPHOCYTES RELATIVE PERCENT (BEAKER) (test 9 % exgy=110) MONOCYTES RELATIVE PERCENT (BEAKER) (test 16 % hdcj=784) EOSINOPHILS RELATIVE PERCENT (BEAKER) (test 3 % dpus=784) BASOPHILS RELATIVE PERCENT (BEAKER) (test 0 % ibdu=189) NEUTROPHILS ABSOLUTE COUNT (BEAKER) (test 3.10 K/ L 1.78-5.38 fygx=881) LYMPHOCYTES ABSOLUTE COUNT (BEAKER) (test 0.39 K/ L 1.32-3.57 nwyy=300) MONOCYTES ABSOLUTE COUNT (BEAKER) (test uyso=987) 0.69 K/ L 0.30-0.82 EOSINOPHILS ABSOLUTE COUNT (BEAKER) (test 0.12 K/ L 0.04-0.54 zhjd=730) BASOPHILS ABSOLUTE COUNT (BEAKER) (test yanh=251) 0.01 K/ L 0.01-0.08 IMMATURE GRANULOCYTES-RELATIVE PERCENT (BEAKER) 1 % 0-1 (test ojlc=6503) PROTHROMBIN [id number] 09:07:00 Test Item Value Reference Range Comments PROTIME (BEAKER) (test xgtf=347) 21.6 seconds 11.7-14.7 INR (BEAKER) (test uigw=435) 1.9 <=5.9 RECOMMENDED COUMADIN/WARFARIN INR THERAPY RANGESSTANDARD DOSE: 2.0 - 3.0 Includes: PROPHYLAXIS forvenous thrombosis, systemic embolization; TREATMENT for venous thrombosis and/or pulmonary embolus.HIGH RISK: Target INR is 2.5-3.5 for patients with mechanical heart valves.[id number] 13:59:00 Test Item Value Reference Range Comments POC-CREATININE (BEAKER) 2.0 mg/dL 0.6-1.3 TESTED AT [address] (test jgad=0708) [facility] [address] POC-EGFR (TUNG) (test 35 mL/min/1.73M2 zyyo=0069) PET/CT, LIMITED AREA [id number] 08:25:00PET/ CT ChestReason for Exam:-> Elongated nodular [...] thighsAdditional imaging: NoneSerum blood glucose: 119CPT Code: 27707 FINDINGS:Head and Neck: There is no trisha [...] documented on prior scans. Signed: Ingrid Hung Verified Date/Time: 03/31/2018 08:25:09 POCT- GLUCOSE [id number] 14:54:00 Test Item Value Reference Range Comments POC-GLUCOSE METER (BEAKER) 119 mg/dL 70-110 TESTED AT [facility] [address] [facility] (test ospk=1040) [facility] [address] COMPREHENSIVE METABOLIC [id number] 16:49:00 Test Item Value Reference Range Comments TOTAL PROTEIN (BEAKER) 6.2 gm/dL 6.0-8.3 (test lcos=279) ALBUMIN (BEAKER) (test 3.4 g/dL 3.5-5.0 vodq=7385) ALKALINE PHOSPHATASE 139 U/L 40-150 (BEAKER) (test gcrk=542) BILIRUBIN TOTAL (BEAKER) 4.0 mg/dL 0.2-1.2 (test bpiy=699) SODIUM (BEAKER) (test 129 meq/L 136-145 nysh=392) POTASSIUM (BEAKER) (test 4.3 meq/L 3.5-5.1 aqny=921) CHLORIDE (BEAKER) (test 96 meq/L 98-107 rghx=458) CO2 (BEAKER) (test 22 meq/L 22-29 mixj=671) BLOOD UREA NITROGEN 28 mg/dL 7-21 (BEAKER) (test kxpu=754) CREATININE (BEAKER) (test 1.51 mg/dL 0.57-1.25 eblg=090) GLUCOSE RANDOM (BEAKER) 89 mg/dL 70-105 (test jxwp=140) CALCIUM (BEAKER) (test 9.5 mg/dL 8.4-10.2 quya=991) AST (SGOT) (BEAKER) (test 26 U/L 5-34 ookz=985) ALT (SGPT) (BEAKER) (test 11 U/L 6-55 lcxq=555) EGFR (BEAKER) (test 49 mL/min/1.73 sq m ESTIMATED GFR IS NOT opzo=2170) ACCURATE CREATININE CLEARANCE IN PREDICTING GLOMERULAR FILTRATION RATE. ESTIMATED GFR IS NOT APPLICABLE FOR DIALYSIS PATIENTS. Specimen slightly ictericBILIRUBIN, [id number] 16:49:00 Test Item Value Reference Range Comments BILIRUBIN DIRECT (BEAKER) (test xsxg=296) 2.8 mg/dL 0.1-0.5 PROTHROMBIN TIME/[id number] 16:36:00 Test Item Value Reference Range Comments PROTIME (BEAKER) (test tfaj=734) 19.0 seconds 11.7-14.7 INR (BEAKER) (test kgcr=406) 1.6 <=5.9 RECOMMENDED COUMADIN/WARFARIN INR THERAPY RANGESSTANDARD DOSE: 2.0 - 3.0 Includes: PROPHYLAXIS forvenous thrombosis, systemic embolization; TREATMENT for venous thrombosis and/or pulmonary embolus.HIGH RISK: Target INR is 2.5-3.5 for patients with mechanical heart valves.CBC W/PLT COUNT & AUTO [id number] 16:27:00 Test Item Value Reference Range Comments WHITE BLOOD CELL COUNT (BEAKER) (test dmeo=061) 6.0 K/ L 3.5-10.5 RED BLOOD CELL COUNT (BEAKER) (test fghx=328) 2.74 M/ L 4.63-6.08 HEMOGLOBIN (BEAKER) (test twch=987) 9.3 GM/DL 13.7-17.5 HEMATOCRIT (BEAKER) (test bhrl=332) 27.6 % 40.1-51.0 MEAN CORPUSCULAR VOLUME (BEAKER) (test iajp=179) 100.7 fL 79.0-92.2 MEAN CORPUSCULAR HEMOGLOBIN (BEAKER) (test 33.9 pg 25.7-32.2 wwxc=189) MEAN CORPUSCULAR HEMOGLOBIN CONC (BEAKER) (test 33.7 GM/DL 32.3-36.5 oxhn=305) RED CELL DISTRIBUTION WIDTH (BEAKER) (test 14.9 % 11.6-14.4 rijv=821) PLATELET COUNT (BEAKER) (test qalh=632) 96 K/CU MM 150-450 MEAN PLATELET VOLUME (BEAKER) (test hgkw=814) 9.4 fL 9.4-12.4 NUCLEATED RED BLOOD CELLS (BEAKER) (test 0 /100 WBC 0-0 ycgu=167) NEUTROPHILS RELATIVE PERCENT (BEAKER) (test 64 % baoo=635) LYMPHOCYTES RELATIVE PERCENT (BEAKER) (test 11 % siwb=519) MONOCYTES RELATIVE PERCENT (BEAKER) (test 16 % asvm=108) EOSINOPHILS RELATIVE PERCENT (BEAKER) (test 7 % nbgm=280) BASOPHILS RELATIVE PERCENT (BEAKER) (test 1 % tfhh=898) NEUTROPHILS ABSOLUTE COUNT (BEAKER) (test 3.83 K/ L 1.78-5.38 oppt=714) LYMPHOCYTES ABSOLUTE COUNT (BEAKER) (test 0.66 K/ L 1.32-3.57 fazk=251) MONOCYTES ABSOLUTE COUNT (BEAKER) (test mpqf=535) 0.95 K/ L 0.30-0.82 EOSINOPHILS ABSOLUTE COUNT (BEAKER) (test 0.41 K/ L 0.04-0.54 bgsa=581) BASOPHILS ABSOLUTE COUNT (BEAKER) (test jihu=394) 0.03 K/ L 0.01-0.08 IMMATURE GRANULOCYTES-RELATIVE PERCENT (BEAKER) 2 % 0-1 (test pgie=8314) BASIC METABOLIC [id number] 08:26:00 Test Item Value Reference Range Comments SODIUM (BEAKER) (test 127 meq/L 136-145 qzrq=260) POTASSIUM (BEAKER) (test 4.3 meq/L 3.5-5.1 nuqb=647) CHLORIDE (BEAKER) (test 96 meq/L 98-107 awya=918) CO2 (BEAKER) (test 23 meq/L 22-29 luma=738) BLOOD UREA NITROGEN 25 mg/dL 7-21 (BEAKER) (test jfqu=578) CREATININE (BEAKER) (test 1.46 mg/dL 0.57-1.25 tdye=805) GLUCOSE RANDOM (BEAKER) 130 mg/dL 70-105 (test tkag=929) CALCIUM (BEAKER) (test 9.1 mg/dL 8.4-10.2 ezha=616) EGFR (BEAKER) (test 51 mL/min/1.73 sq m ESTIMATED GFR IS NOT gqqz=7939) ACCURATE CREATININE CLEARANCE IN PREDICTING GLOMERULAR FILTRATION RATE. ESTIMATED GFR IS NOT APPLICABLE FOR DIALYSIS PATIENTS. Specimen slightly ictericCBC (HEMOGRAM ONLY)2018-02-23 08:06:00 Test Item Value Reference Range Comments WHITE BLOOD CELL COUNT (BEAKER) (test zlsv=720) 5.4 K/ L 3.5-10.5 RED BLOOD CELL COUNT (BEAKER) (test srsr=572) 2.64 M/ L 4.63-6.08 HEMOGLOBIN (BEAKER) (test uhhf=594) 8.8 GM/DL 13.7-17.5 HEMATOCRIT (BEAKER) (test vtoq=664) 26.2 % 40.1-51.0 MEAN CORPUSCULAR VOLUME (BEAKER) (test uufv=549) 99.2 fL 79.0-92.2 MEAN CORPUSCULAR HEMOGLOBIN (BEAKER) (test 33.3 pg 25.7-32.2 vhhh=833) MEAN CORPUSCULAR HEMOGLOBIN CONC (BEAKER) (test 33.6 GM/DL 32.3-36.5 mvrv=530) RED CELL DISTRIBUTION WIDTH (BEAKER) (test 16.2 % 11.6-14.4 xgkq=278) PLATELET COUNT (BEAKER) (test eybr=026) 100 K/CU MM 150-450 MEAN PLATELET VOLUME (BEAKER) (test brql=219) 8.7 fL 9.4-12.4 NUCLEATED RED BLOOD CELLS (BEAKER) (test 0 /100 WBC 0-0 ukkg=808) COMPREHENSIVE METABOLIC [id number] 15:06:00 Test Item Value Reference Range Comments TOTAL PROTEIN (BEAKER) 6.5 gm/dL 6.0-8.3 (test rzow=499) ALBUMIN (BEAKER) (test 3.7 g/dL 3.5-5.0 lfdp=4470) ALKALINE PHOSPHATASE 135 U/L 40-150 (BEAKER) (test oyro=620) BILIRUBIN TOTAL (BEAKER) 4.5 mg/dL 0.2-1.2 (test ucjd=641) SODIUM (BEAKER) (test 131 meq/L 136-145 wyqe=579) POTASSIUM (BEAKER) (test 5.8 meq/L 3.5-5.1 xptt=883) CHLORIDE (BEAKER) (test 103 meq/L 98-107 kejd=709) CO2 (BEAKER) (test 24 meq/L 22-29 mvcb=599) BLOOD UREA NITROGEN 27 mg/dL 7-21 (BEAKER) (test dvmn=607) CREATININE (BEAKER) (test 1.17 mg/dL 0.57-1.25 vyfb=932) GLUCOSE RANDOM (BEAKER) 111 mg/dL 70-105 (test hwso=519) CALCIUM (BEAKER) (test 11.0 mg/dL 8.4-10.2 rorc=805) AST (SGOT) (BEAKER) (test 28 U/L 5-34 xngo=949) ALT (SGPT) (BEAKER) (test 19 U/L 6-55 aaty=041) EGFR (BEAKER) (test 65 mL/min/1.73 sq m ESTIMATED GFR IS NOT fjxr=6169) ACCURATE CREATININE CLEARANCE IN PREDICTING GLOMERULAR FILTRATION RATE. ESTIMATED GFR IS NOT APPLICABLE FOR DIALYSIS PATIENTS. Specimen slightly ictericBILIRUBIN, [id number] 15:06:00 Test Item Value Reference Range Comments BILIRUBIN DIRECT (BEAKER) (test ejco=520) 3.0 mg/dL 0.1-0.5 PROTHROMBIN [id number] 14:42:00 Test Item Value Reference Range Comments PROTIME (BEAKER) (test ldob=968) 19.1 seconds 11.7-14.7 INR (BEAKER) (test edii=767) 1.6 <=5.9 RECOMMENDED COUMADIN/WARFARIN INR THERAPY RANGESSTANDARD DOSE: 2.0 - 3.0 Includes: PROPHYLAXIS forvenous thrombosis, systemic embolization; TREATMENT for venous thrombosis and/or pulmonary embolus.HIGH RISK: Target INR is 2.5-3.5 for patients with mechanical heart valves.CBC W/PLT COUNT & AUTO [id number] 14:36:00 Test Item Value Reference Range Comments WHITE BLOOD CELL COUNT (BEAKER) (test ozbi=228) 5.5 K/ L 3.5-10.5 RED BLOOD CELL COUNT (BEAKER) (test owbv=265) 2.84 M/ L 4.63-6.08 HEMOGLOBIN (BEAKER) (test plnn=027) 9.5 GM/DL 13.7-17.5 HEMATOCRIT (BEAKER) (test hqym=809) 28.8 % 40.1-51.0 MEAN CORPUSCULAR VOLUME (BEAKER) (test scbq=085) 101.4 fL 79.0-92.2 MEAN CORPUSCULAR HEMOGLOBIN (BEAKER) (test 33.5 pg 25.7-32.2 fpec=448) MEAN CORPUSCULAR HEMOGLOBIN CONC (BEAKER) (test 33.0 GM/DL 32.3-36.5 lwwp=610) RED CELL DISTRIBUTION WIDTH (BEAKER) (test 19.4 % 11.6-14.4 gbcu=225) PLATELET COUNT (BEAKER) (test ueas=652) 65 K/CU MM 150-450 MEAN PLATELET VOLUME (BEAKER) (test ryuq=805) 8.8 fL 9.4-12.4 NUCLEATED RED BLOOD CELLS (BEAKER) (test 0 /100 WBC 0-0 iuiw=318) NEUTROPHILS RELATIVE PERCENT (BEAKER) (test 66 % vdbz=008) LYMPHOCYTES RELATIVE PERCENT (BEAKER) (test 14 % inqr=300) MONOCYTES RELATIVE PERCENT (BEAKER) (test 15 % tkof=068) EOSINOPHILS RELATIVE PERCENT (BEAKER) (test 4 % bixf=805) BASOPHILS RELATIVE PERCENT (BEAKER) (test 0 % yxap=622) NEUTROPHILS ABSOLUTE COUNT (BEAKER) (test 3.58 K/ L 1.78-5.38 xfqd=503) LYMPHOCYTES ABSOLUTE COUNT (BEAKER) (test 0.78 K/ L 1.32-3.57 axfw=702) MONOCYTES ABSOLUTE COUNT (BEAKER) (test lbtl=975) 0.79 K/ L 0.30-0.82 EOSINOPHILS ABSOLUTE COUNT (BEAKER) (test 0.23 K/ L 0.04-0.54 nyhy=769) BASOPHILS ABSOLUTE COUNT (BEAKER) (test pevd=246) 0.02 K/ L 0.01-0.08 IMMATURE GRANULOCYTES-RELATIVE PERCENT (BEAKER) 1 % 0-1 (test pado=3106) RAD, KNEE, COMPLETE (4 VIEWS), [id number] 11:15:00Reason for exam:->FALL , PAINFINAL REPORT Bilateral [...] MDReport Verified Date/Time: 01/06/2018 11:15:08 Reading Location: [facility] Radiology Reading Room RAD, KNEE, COMPLETE (4 VIEWS), [id number] 11:15:00Reason for exam:->FALL, PAINFINAL REPORT Bilateral knee [...] MDReport Verified Date/Time: 01/06/2018 11:15:08 Reading Location: [facility] Radiology Reading Room CBC W/PLT COUNT & AUTO [id number] 10: 58:00 Test Item Value Reference Range Comments WHITE BLOOD CELL COUNT (BEAKER) (test krzm=845) 2.9 K/ L 3.5-10.5 RED BLOOD CELL COUNT (BEAKER) (test tmap=036) 2.27 M/ L 4.63-6.08 HEMOGLOBIN (BEAKER) (test nkhg=807) 7.1 GM/DL 13.7-17.5 HEMATOCRIT (BEAKER) (test pmqj=761) 21.0 % 40.1-51.0 MEAN CORPUSCULAR VOLUME (BEAKER) (test sxkf=634) 92.5 fL 79.0-92.2 MEAN CORPUSCULAR HEMOGLOBIN (BEAKER) (test 31.3 pg 25.7-32.2 hwcp=604) MEAN CORPUSCULAR HEMOGLOBIN CONC (BEAKER) (test 33.8 GM/DL 32.3-36.5 vwtx=325) RED CELL DISTRIBUTION WIDTH (BEAKER) (test 17.2 % 11.6-14.4 bvfv=870) PLATELET COUNT (BEAKER) (test xutb=787) 42 K/CU MM 150-450 MEAN PLATELET VOLUME (BEAKER) (test nxxp=267) 10.1 fL 9.4-12.4 NUCLEATED RED BLOOD CELLS (BEAKER) (test 0 /100 WBC 0-0 pcgl=097) NEUTROPHILS RELATIVE PERCENT (BEAKER) (test 77 % wpkq=289) LYMPHOCYTES RELATIVE PERCENT (BEAKER) (test 12 % ruxk=619) MONOCYTES RELATIVE PERCENT (BEAKER) (test 10 % qcgj=283) EOSINOPHILS RELATIVE PERCENT (BEAKER) (test 1 % vkas=792) BASOPHILS RELATIVE PERCENT (BEAKER) (test 0 % ifwt=088) NEUTROPHILS ABSOLUTE COUNT (BEAKER) (test 2.21 K/ L 1.78-5.38 nbjp=112) LYMPHOCYTES ABSOLUTE COUNT (BEAKER) (test 0.33 K/ L 1.32-3.57 xnut=028) MONOCYTES ABSOLUTE COUNT (BEAKER) (test unwb=701) 0.30 K/ L 0.30-0.82 EOSINOPHILS ABSOLUTE COUNT (BEAKER) (test 0.03 K/ L 0.04-0.54 tdzd=674) BASOPHILS ABSOLUTE COUNT (BEAKER) (test lddf=485) 0.00 K/ L 0.01-0.08 IMMATURE GRANULOCYTES-RELATIVE PERCENT (BEAKER) 0 % 0-1 (test vzre=4786) [id number] 06:06:00 Test Item Value Reference Range Comments PHOSPHORUS (BEAKER) (test gpqu=569) 3.6 mg/dL 2.3-4.7 [id number] 06:06:00 Test Item Value Reference Range Comments MAGNESIUM (BEAKER) (test kwqb=736) 2.0 mg/dL 1.6-2.6 BASIC METABOLIC [id number] 06:06:00 Test Item Value Reference Range Comments SODIUM (BEAKER) (test 130 meq/L 136-145 fjcx=467) POTASSIUM (BEAKER) (test 4.4 meq/L 3.5-5.1 nugz=761) CHLORIDE (BEAKER) (test 100 meq/L 98-107 gwot=436) CO2 (BEAKER) (test 23 meq/L 22-29 xhml=314) BLOOD UREA NITROGEN 21 mg/dL 7-21 (BEAKER) (test qsbo=497) CREATININE (BEAKER) (test 1.11 mg/dL 0.57-1.25 ezrp=739) GLUCOSE RANDOM (BEAKER) 120 mg/dL 70-105 (test tkvg=285) CALCIUM (BEAKER) (test 9.4 mg/dL 8.4-10.2 dfus=954) EGFR (BEAKER) (test 70 mL/min/1.73 sq m ESTIMATED GFR IS NOT hlmg=5726) ACCURATE CREATININE CLEARANCE IN PREDICTING GLOMERULAR FILTRATION RATE. ESTIMATED GFR IS NOT APPLICABLE FOR DIALYSIS PATIENTS. Specimen slightly ictericPROTHROMBIN [id number] 06:02:00 Test Item Value Reference Range Comments PROTIME (BEAKER) (test bpqa=081) 22.9 seconds 11.7-14.7 INR (BEAKER) (test dcyx=185) 2.0 <=5.9 RECOMMENDED COUMADIN/WARFARIN INR THERAPY RANGESSTANDARD DOSE: 2.0 - 3.0 Includes: PROPHYLAXIS forvenous thrombosis, systemic embolization; TREATMENT for venous thrombosis and/or pulmonary embolus.HIGH RISK: Target INR is 2.5-3.5 for patients with mechanical heart valves.CALCIUM, [id number] 06:01:00 Test Item Value Reference Range Comments CALCIUM IONIZED (BEAKER) (test snzm=483) 1.11 mmol/L 1.12-1.27 PH, BLOOD (BEAKER) (test yosq=4183) 7.53 CORTISOL,60 [id number] 23:20:00 Test Item Value Reference Range Comments CORTISOL BASELINE NETWORKED (BEAKER) (test 4.8 mcg/dL qonb=4642) CORTISOL 30 MINUTE NETWORKED (BEAKER) (test 9.2 mcg/dL ykcc=0025) CORTISOL, 60 MINUTE (BEAKER) (test gtag=8572) 12.6 ug/dL ACTH STIMULATION TEST INTERPRETATION GUIDELINES(Synonyms: [...] serum cortisollevel 60 minutes after cosyntropin administration.CORTISOL,30 [id number] 22:35:00 Test Item Value Reference Range Comments CORTISOL BASELINE NETWORKED (BEAKER) (test 4.8 mcg/dL gcwm=6469) CORTISOL, 30 MINUTE (BEAKER) (test aoqc=1481) 9.2 ug/dL ACTH STIMULATION TEST INTERPRETATION GUIDELINES(Synonyms: [...] Draw serum cortisollevel 60 minutes after cosyntropin administration.CORTISOL,[id number] 22:35:00 Test Item Value Reference Range Comments CORTISOL, BASELINE (TUNG) (test pvyz=7277) 4.8 ug/dL ACTH STIMULATION TEST INTERPRETATION GUIDELINES(Synonyms: [...] serum cortisollevel 60 minutes after cosyntropin administration.U/S, [id number] 17:54:00Reason for exam:->therapeuticFINAL REPORT History: Ascites. PROCEDURE: Following informed written consent,the patient's right lower quadrant was prepped and draped in the usual sterile manner. 2% lidocaine was given locally for anesthesia. No conscious sedation was administered. Using ultrasound guidance, a 5 [place] one-step catheter was advanced percutaneously into the [...] Verified Date/Time: 01/05/2018 17: 54:16 Reading Location: [facility] [id number] Ultrasound Reading Room [id number] 11:19:00 Test Item Value Reference Range Comments CORTISOL, TOTAL (BEAKER) (test vunv=5705) 2.7 ug/dL 3.7-19.4 [id number] 10:21:00 Test Item Value Reference Range Comments PHOSPHORUS (BEAKER) (test gjpm=891) 2.8 mg/dL 2.3-4.7 [id number] 10:21:00 Test Item Value Reference Range Comments MAGNESIUM (BEAKER) (test tfvu=581) 1.9 mg/dL 1.6-2.6 BASIC METABOLIC [id number] 10:21:00 Test Item Value Reference Range Comments SODIUM (BEAKER) (test 127 meq/L 136-145 kjbn=934) POTASSIUM (BEAKER) (test 5.0 meq/L 3.5-5.1 audn=553) CHLORIDE (BEAKER) (test 100 meq/L 98-107 rdrv=875) CO2 (BEAKER) (test 22 meq/L 22-29 pmqm=432) BLOOD UREA NITROGEN 25 mg/dL 7-21 (BEAKER) (test hwfs=215) CREATININE (BEAKER) (test 1.17 mg/dL 0.57-1.25 vnvh=382) GLUCOSE RANDOM (BEAKER) 84 mg/dL 70-105 (test vqce=258) CALCIUM (BEAKER) (test 8.7 mg/dL 8.4-10.2 bavg=416) EGFR (BEAKER) (test 65 mL/min/1.73 sq m ESTIMATED GFR IS NOT hbje=2534) ACCURATE CREATININE CLEARANCE IN PREDICTING GLOMERULAR FILTRATION RATE. ESTIMATED GFR IS NOT APPLICABLE FOR DIALYSIS PATIENTS. Specimen slightly ictericCBC W/PLT COUNT & AUTO [id number] 08:42 :00 Test Item Value Reference Range Comments WHITE BLOOD CELL COUNT (BEAKER) (test zgpb=552) 2.7 K/ L 3.5-10.5 RED BLOOD CELL COUNT (BEAKER) (test evlt=154) 2.33 M/ L 4.63-6.08 HEMOGLOBIN (BEAKER) (test hgwd=050) 7.3 GM/DL 13.7-17.5 HEMATOCRIT (BEAKER) (test giyn=206) 22.0 % 40.1-51.0 MEAN CORPUSCULAR VOLUME (BEAKER) (test eual=029) 94.4 fL 79.0-92.2 MEAN CORPUSCULAR HEMOGLOBIN (BEAKER) (test 31.3 pg 25.7-32.2 ggxw=294) MEAN CORPUSCULAR HEMOGLOBIN CONC (BEAKER) (test 33.2 GM/DL 32.3-36.5 cvxz=878) RED CELL DISTRIBUTION WIDTH (BEAKER) (test 17.2 % 11.6-14.4 dhpj=884) PLATELET COUNT (BEAKER) (test ghbq=995) 45 K/CU MM 150-450 MEAN PLATELET VOLUME (BEAKER) (test afub=474) 9.3 fL 9.4-12.4 NUCLEATED RED BLOOD CELLS (BEAKER) (test 0 /100 WBC 0-0 epai=610) NEUTROPHILS RELATIVE PERCENT (BEAKER) (test 60 % gazq=060) LYMPHOCYTES RELATIVE PERCENT (BEAKER) (test 17 % hbap=428) MONOCYTES RELATIVE PERCENT (BEAKER) (test 16 % xpmu=310) EOSINOPHILS RELATIVE PERCENT (BEAKER) (test 6 % znvx=794) BASOPHILS RELATIVE PERCENT (BEAKER) (test 0 % srln=524) NEUTROPHILS ABSOLUTE COUNT (BEAKER) (test 1.63 K/ L 1.78-5.38 ytsu=334) LYMPHOCYTES ABSOLUTE COUNT (BEAKER) (test 0.45 K/ L 1.32-3.57 zhef=974) MONOCYTES ABSOLUTE COUNT (BEAKER) (test fxbo=104) 0.44 K/ L 0.30-0.82 EOSINOPHILS ABSOLUTE COUNT (BEAKER) (test 0.16 K/ L 0.04-0.54 sbnv=204) BASOPHILS ABSOLUTE COUNT (BEAKER) (test lbqn=238) 0.01 K/ L 0.01-0.08 IMMATURE GRANULOCYTES-RELATIVE PERCENT (BEAKER) 1 % 0-1 (test zqjo=6854) (MANUAL DIFFERENTIAL)2018-01-05 08:42:00 Test Item Value Reference Range Comments TOTAL COUNTED (BEAKER) (test amaj=0240) WBC MORPHOLOGY (BEAKER) (test ywve=074) Normal PLT MORPHOLOGY (BEAKER) (test wkyc=241) Normal ANISOCYTOSIS (BEAKER) (test fnua=004) 1+ few CALCIUM, [id number] 08:10:00 Test Item Value Reference Range Comments CALCIUM IONIZED (BEAKER) (test ovfa=855) 1.08 mmol/L 1.12-1.27 PH, BLOOD (BEAKER) (test lths=2201) 7.44 PROTHROMBIN [id number] 07:12:00 Test Item Value Reference Range Comments PROTIME (BEAKER) (test zzqm=049) 22.4 seconds 11.7-14.7 INR (BEAKER) (test dyfy=856) 2.0 <=5.9 RECOMMENDED COUMADIN/WARFARIN INR THERAPY RANGESSTANDARD DOSE: 2.0 - 3.0 Includes: PROPHYLAXIS forvenous thrombosis, systemic embolization; TREATMENT for venous thrombosis and/or pulmonary embolus.HIGH RISK: Target INR is 2.5-3.5 for patients with mechanical heart valves.[id number] 17:54:00 Test Item Value Reference Range Comments SODIUM (BEAKER) (test rslq=550) 129 meq/L 136-145 POTASSIUM (BEAKER) (test tehj=645) 5.5 meq/L 3.5-5.1 CHLORIDE (BEAKER) (test igch=464) 101 meq/L 98-107 CO2 (BEAKER) (test thql=159) 26 meq/L 22-29 Call [id number] with resultsCBC (HEMOGRAM ONLY)2018-01-04 07:16:00 Test Item Value Reference Range Comments WHITE BLOOD CELL COUNT (BEAKER) (test ylit=818) 2.9 K/ L 3.5-10.5 RED BLOOD CELL COUNT (BEAKER) (test ndug=893) 2.25 M/ L 4.63-6.08 HEMOGLOBIN (BEAKER) (test btri=805) 7.3 GM/DL 13.7-17.5 HEMATOCRIT (BEAKER) (test zhwg=385) 21.3 % 40.1-51.0 MEAN CORPUSCULAR VOLUME (BEAKER) (test zcrz=541) 94.7 fL 79.0-92.2 MEAN CORPUSCULAR HEMOGLOBIN (BEAKER) (test 32.4 pg 25.7-32.2 vpga=457) MEAN CORPUSCULAR HEMOGLOBIN CONC (BEAKER) (test 34.3 GM/DL 32.3-36.5 wugi=199) RED CELL DISTRIBUTION WIDTH (BEAKER) (test 17.6 % 11.6-14.4 mhlh=770) PLATELET COUNT (BEAKER) (test lgmk=530) 59 K/CU MM 150-450 MEAN PLATELET VOLUME (BEAKER) (test mmao=432) 11.3 fL 9.4-12.4 NUCLEATED RED BLOOD CELLS (BEAKER) (test 0 /100 WBC 0-0 brkg=965) COMPREHENSIVE METABOLIC [id number] 06:49:00 Test Item Value Reference Range Comments TOTAL PROTEIN (BEAKER) 5.3 gm/dL 6.0-8.3 Specimen slightly (test txjr=645) hemolyzed ALBUMIN (BEAKER) (test 3.3 g/dL 3.5-5.0 Specimen slightly fmcx=5558) hemolyzed ALKALINE PHOSPHATASE 81 U/L 40-150 (BEAKER) (test eqdz=355) BILIRUBIN TOTAL (BEAKER) 2.4 mg/dL 0.2-1.2 Specimen slightly (test wuzg=834) hemolyzed SODIUM (BEAKER) (test 127 meq/L 136-145 xhrh=906) POTASSIUM (BEAKER) (test 5.7 meq/L 3.5-5.1 Specimen slightly elwe=147) hemolyzed CHLORIDE (BEAKER) (test 100 meq/L 98-107 zkel=998) CO2 (BEAKER) (test 20 meq/L 22-29 wups=583) BLOOD UREA NITROGEN 22 mg/dL 7-21 (BEAKER) (test kgup=891) CREATININE (BEAKER) (test 1.14 mg/dL 0.57-1.25 Specimen slightly grim=007) hemolyzed GLUCOSE RANDOM (BEAKER) 96 mg/dL 70-105 (test ubpf=728) CALCIUM (BEAKER) (test 8.9 mg/dL 8.4-10.2 udly=636) AST (SGOT) (BEAKER) (test 30 U/L 5-34 Specimen slightly lgwt=790) hemolyzed ALT (SGPT) (BEAKER) (test 8 U/L 6-55 Specimen slightly kuvc=543) hemolyzed EGFR (BEAKER) (test 67 mL/min/1.73 sq m ESTIMATED GFR IS NOT eqck=3294) ACCURATE CREATININE CLEARANCE IN PREDICTING GLOMERULAR FILTRATION RATE. ESTIMATED GFR IS NOT APPLICABLE FOR DIALYSIS PATIENTS. Specimen slightly ictericPROTHROMBIN [id number] 06:15:00 Test Item Value Reference Range Comments PROTIME (BEAKER) (test baqa=877) 22.7 seconds 11.7-14.7 INR (BEAKER) (test gzbr=066) 2.0 <=5.9 RECOMMENDED COUMADIN/WARFARIN INR THERAPY RANGESSTANDARD DOSE: 2.0 - 3.0 Includes: PROPHYLAXIS forvenous thrombosis, systemic embolization; TREATMENT for venous thrombosis and/or pulmonary embolus.HIGH RISK: Target INR is 2.5-3.5 for patients with mechanical heart valves.VITAMIN B12 AND [id number] 16:39 :00 Test Item Value Reference Range Comments VITAMIN B12 (BEAKER) (test apcg=062) 829 pg/mL 213-816 FOLATE (BEAKER) (test smlx=739) 18.9 ng/mL >=7.0 CALCIUM, [id number] 07:14:00 Test Item Value Reference Range Comments CALCIUM IONIZED (BEAKER) (test jmrn=020) 1.08 mmol/L 1.12-1.27 PH, BLOOD (BEAKER) (test vuyu=1740) 7.41 COMPREHENSIVE METABOLIC [id number] 07:00:00 Test Item Value Reference Range Comments TOTAL PROTEIN (BEAKER) 5.0 gm/dL 6.0-8.3 (test ukor=309) ALBUMIN (BEAKER) (test 3.1 g/dL 3.5-5.0 jezn=0515) ALKALINE PHOSPHATASE 65 U/L 40-150 (BEAKER) (test ztkj=279) BILIRUBIN TOTAL (BEAKER) 2.5 mg/dL 0.2-1.2 (test dehc=354) SODIUM (BEAKER) (test 127 meq/L 136-145 sazr=857) POTASSIUM (BEAKER) (test 4.7 meq/L 3.5-5.1 ezcv=294) CHLORIDE (BEAKER) (test 99 meq/L 98-107 ottr=329) CO2 (BEAKER) (test 23 meq/L 22-29 stdr=795) BLOOD UREA NITROGEN 21 mg/dL 7-21 (BEAKER) (test cbzg=469) CREATININE (BEAKER) (test 1.13 mg/dL 0.57-1.25 vmjv=118) GLUCOSE RANDOM (BEAKER) 92 mg/dL 70-105 (test cpvl=515) CALCIUM (BEAKER) (test 8.9 mg/dL 8.4-10.2 ztgo=986) AST (SGOT) (BEAKER) (test 18 U/L 5-34 xtbi=064) ALT (SGPT) (BEAKER) (test 8 U/L 6-55 xhks=868) EGFR (BEAKER) (test 68 mL/min/1.73 sq m ESTIMATED GFR IS NOT yuyc=3022) ACCURATE CREATININE CLEARANCE IN PREDICTING GLOMERULAR FILTRATION RATE. ESTIMATED GFR IS NOT APPLICABLE FOR DIALYSIS PATIENTS. [id number] 06:37:00 Test Item Value Reference Range Comments PHOSPHORUS (BEAKER) (test jadj=008) 3.2 mg/dL 2.3-4.7 [id number] 06:37:00 Test Item Value Reference Range Comments MAGNESIUM (BEAKER) (test webs=339) 1.9 mg/dL 1.6-2.6 CBC (HEMOGRAM ONLY)2018-01-03 06:25:00 Test Item Value Reference Range Comments WHITE BLOOD CELL COUNT (BEAKER) (test qewe=907) 3.1 K/ L 3.5-10.5 RED BLOOD CELL COUNT (BEAKER) (test ccid=114) 2.31 M/ L 4.63-6.08 HEMOGLOBIN (BEAKER) (test icoc=896) 7.4 GM/DL 13.7-17.5 HEMATOCRIT (BEAKER) (test rxwk=530) 21.6 % 40.1-51.0 MEAN CORPUSCULAR VOLUME (BEAKER) (test ngvv=172) 93.5 fL 79.0-92.2 MEAN CORPUSCULAR HEMOGLOBIN (BEAKER) (test 32.0 pg 25.7-32.2 xoeu=001) MEAN CORPUSCULAR HEMOGLOBIN CONC (BEAKER) (test 34.3 GM/DL 32.3-36.5 ccvy=122) RED CELL DISTRIBUTION WIDTH (BEAKER) (test 17.4 % 11.6-14.4 uvqd=644) PLATELET COUNT (BEAKER) (test wgol=767) 50 K/CU MM 150-450 MEAN PLATELET VOLUME (BEAKER) (test qakw=402) 10.5 fL 9.4-12.4 NUCLEATED RED BLOOD CELLS (BEAKER) (test 0 /100 WBC 0-0 ruzu=987) PROTHROMBIN [id number] 06:09:00 Test Item Value Reference Range Comments PROTIME (BEAKER) (test clfa=770) 22.2 seconds 11.7-14.7 INR (BEAKER) (test lyui=623) 2.0 <=5.9 RECOMMENDED COUMADIN/WARFARIN INR THERAPY RANGESSTANDARD DOSE: 2.0 - 3.0 Includes: PROPHYLAXIS forvenous thrombosis, systemic embolization; TREATMENT for venous thrombosis and/or pulmonary embolus.HIGH RISK: Target INR is 2.5-3.5 for patients with mechanical heart valves.[id number] 07:54:00 Test Item Value Reference Range Comments PHOSPHORUS (BEAKER) (test zorv=229) 3.2 mg/dL 2.3-4.7 [id number] 07:54:00 Test Item Value Reference Range Comments MAGNESIUM (BEAKER) (test omye=457) 1.4 mg/dL 1.6-2.6 COMPREHENSIVE METABOLIC [id number] 07:54:00 Test Item Value Reference Range Comments TOTAL PROTEIN (BEAKER) 5.3 gm/dL 6.0-8.3 (test oldo=333) ALBUMIN (BEAKER) (test 3.4 g/dL 3.5-5.0 dwan=7405) ALKALINE PHOSPHATASE 55 U/L 40-150 (BEAKER) (test vikr=554) BILIRUBIN TOTAL (BEAKER) 3.9 mg/dL 0.2-1.2 (test udpc=970) SODIUM (BEAKER) (test 131 meq/L 136-145 rszg=678) POTASSIUM (BEAKER) (test 4.3 meq/L 3.5-5.1 qkhg=093) CHLORIDE (BEAKER) (test 101 meq/L 98-107 vnhk=312) CO2 (BEAKER) (test 23 meq/L 22-29 enrv=469) BLOOD UREA NITROGEN 19 mg/dL 7-21 (BEAKER) (test arwg=151) CREATININE (BEAKER) (test 0.97 mg/dL 0.57-1.25 nouj=853) GLUCOSE RANDOM (BEAKER) 80 mg/dL 70-105 (test iflf=280) CALCIUM (BEAKER) (test 9.4 mg/dL 8.4-10.2 rmvy=142) AST (SGOT) (BEAKER) (test 17 U/L 5-34 fkvc=009) ALT (SGPT) (BEAKER) (test 8 U/L 6-55 bxpu=511) EGFR (BEAKER) (test 81 mL/min/1.73 sq m ESTIMATED GFR IS NOT jvac=0976) ACCURATE CREATININE CLEARANCE IN PREDICTING GLOMERULAR FILTRATION RATE. ESTIMATED GFR IS NOT APPLICABLE FOR DIALYSIS PATIENTS. Specimen slightly ictericCBC W/PLT COUNT & AUTO [id number] 07:14 :00 Test Item Value Reference Range Comments WHITE BLOOD CELL COUNT (BEAKER) (test nwwr=837) 2.9 K/ L 3.5-10.5 RED BLOOD CELL COUNT (BEAKER) (test jfkx=944) 2.55 M/ L 4.63-6.08 HEMOGLOBIN (BEAKER) (test zoyr=308) 8.1 GM/DL 13.7-17.5 HEMATOCRIT (BEAKER) (test bzcv=315) 23.7 % 40.1-51.0 MEAN CORPUSCULAR VOLUME (BEAKER) (test uzcm=838) 92.9 fL 79.0-92.2 MEAN CORPUSCULAR HEMOGLOBIN (BEAKER) (test 31.8 pg 25.7-32.2 qvcy=505) MEAN CORPUSCULAR HEMOGLOBIN CONC (BEAKER) (test 34.2 GM/DL 32.3-36.5 ugkk=201) RED CELL DISTRIBUTION WIDTH (BEAKER) (test 17.5 % 11.6-14.4 ejzs=064) PLATELET COUNT (BEAKER) (test zrsv=336) 50 K/CU MM 150-450 MEAN PLATELET VOLUME (BEAKER) (test jovt=003) 9.5 fL 9.4-12.4 NUCLEATED RED BLOOD CELLS (BEAKER) (test 0 /100 WBC 0-0 olpz=480) NEUTROPHILS RELATIVE PERCENT (BEAKER) (test 57 % mgsj=631) LYMPHOCYTES RELATIVE PERCENT (BEAKER) (test 17 % jdvb=730) MONOCYTES RELATIVE PERCENT (BEAKER) (test 18 % uofd=148) EOSINOPHILS RELATIVE PERCENT (BEAKER) (test 7 % kkav=321) BASOPHILS RELATIVE PERCENT (BEAKER) (test 0 % xcmx=652) NEUTROPHILS ABSOLUTE COUNT (BEAKER) (test 1.65 K/ L 1.78-5.38 relt=323) LYMPHOCYTES ABSOLUTE COUNT (BEAKER) (test 0.49 K/ L 1.32-3.57 mayf=459) MONOCYTES ABSOLUTE COUNT (BEAKER) (test rzjc=305) 0.51 K/ L 0.30-0.82 EOSINOPHILS ABSOLUTE COUNT (BEAKER) (test 0.20 K/ L 0.04-0.54 avnc=304) BASOPHILS ABSOLUTE COUNT (BEAKER) (test likb=433) 0.01 K/ L 0.01-0.08 IMMATURE GRANULOCYTES-RELATIVE PERCENT (BEAKER) 1 % 0-1 (test opfp=1558) (MANUAL DIFFERENTIAL)2018-01-02 07:14:00 Test Item Value Reference Range Comments TOTAL COUNTED (BEAKER) (test udal=3648) CALCIUM, [id number] 07:04:00 Test Item Value Reference Range Comments CALCIUM IONIZED (BEAKER) (test dced=183) 1.07 mmol/L 1.12-1.27 PH, BLOOD (BEAKER) (test pwlv=4702) 7.49 PROTHROMBIN TIME/[id number] 06:42:00 Test Item Value Reference Range Comments PROTIME (BEAKER) (test vmav=714) 24.6 seconds 11.7-14.7 INR (BEAKER) (test aamp=393) 2.2 <=5.9 RECOMMENDED COUMADIN/WARFARIN INR THERAPY RANGESSTANDARD DOSE: 2.0 - 3.0 Includes: PROPHYLAXIS forvenous thrombosis, systemic embolization; TREATMENT for venous thrombosis and/or pulmonary embolus.HIGH RISK: Target INR is 2.5-3.5 for patients with mechanical heart valves.CYTOMEGALOVIRUS ANTIBODY, [id number] 14:58:00 Test Item Value Reference Range Comments CYTOMEGALOVIRUS IGG ANTIBODY (BEAKER) (test Positive mrzw=642) CYTOMEGALOVIRUS ANTIBODY, [id number] 14:58:00 Test Item Value Reference Range Comments CYTOMEGALOVIRUS IGM ANTIBODY (BEAKER) (test Negative sspq=974) EBV-VCA ANTIBODY, [id number] 14:58:00 Test Item Value Reference Range Comments MARCELLUS-DAVIS VCA IGG (BEAKER) (test pvco=044) Positive EBV-VCA ANTIBODY, [id number] 14:58:00 Test Item Value Reference Range Comments MARCELLUS-DAVIS VCA IGM (BEAKER) (test vkie=261) Negative BODY FLUID CELL COUNT WITH [id number] 14:27:00 Test Item Value Reference Range Comments APPEARANCE FLUID (BEAKER) (test wotq=287) Slightly Hazy Clear COLOR FLUID (BEAKER) (test uyiu=050) Yellow Colorless, Straw RBC FLUID (BEAKER) (test gsgy=092) 378 /cu mm <=1 ADJUSTED WBC FLUID (BEAKER) (test zxjz=7726) 84 /cu mm <=5 LINING CELLS (BEAKER) (test kvmo=8131) 17 /cu mm <=1 NEUTROPHILS FLUID (BEAKER) (test yroc=6939) 1 % LYMPHS FLUID (BEAKER) (test vpaz=545) 14 % MONO/MACROPHAGE FLUID (BEAKER) (test 85 % afvb=078) EOSINOPHILS FLUID (BEAKER) (test vrnn=349) 0 % BASO FLUID (BEAKER) (test pvrp=034) 0 % CONTAINER BODY FLUID (BEAKER) (test EDTA Tube iofj=3455) U/S, [id number] 11:17:00Reason for exam:->ascitesFINAL REPORT Ultrasound guided paracentesis, 01/01/2018. Clinical History:Ascites. Sedation: None. Rubber Worker: Paul Butler MD Second Vp Hr Assessment: None. Estimated Blood Loss: < 1 cc. [...] was achieved with 1% lidocaine, a 5 [place] one-step catheter was advanced into the peritoneal cavity under ultrasound guidance. After completion of drainage, the catheter was removed. There was no evidence ofcomplication. Patient Disposition: The patient was transferred to the inpatient unit from the ultrasound department after the paracentesis, in good condition. Impression:Successful ultrasound guided paracentesis. Signed: Paul Butler MDReport Verified Date/Time: 01/01/2018 11:17:26 Reading Location: [address] Ultrasound Reading Room CBC W/PLT COUNT & AUTO [id number] 08:55:00 Test Item Value Reference Range Comments WHITE BLOOD CELL COUNT (BEAKER) (test xmax=148) 2.6 K/ L 3.5-10.5 RED BLOOD CELL COUNT (BEAKER) (test gddw=747) 2.17 M/ L 4.63-6.08 HEMOGLOBIN (BEAKER) (test khii=937) 6.9 GM/DL 13.7-17.5 HEMATOCRIT (BEAKER) (test hmsy=336) 20.6 % 40.1-51.0 MEAN CORPUSCULAR VOLUME (BEAKER) (test aawa=125) 94.9 fL 79.0-92.2 MEAN CORPUSCULAR HEMOGLOBIN (BEAKER) (test 31.8 pg 25.7-32.2 xzij=832) MEAN CORPUSCULAR HEMOGLOBIN CONC (BEAKER) (test 33.5 GM/DL 32.3-36.5 bcmw=607) RED CELL DISTRIBUTION WIDTH (BEAKER) (test 17.0 % 11.6-14.4 radx=172) PLATELET COUNT (BEAKER) (test nvkq=416) 43 K/CU MM 150-450 MEAN PLATELET VOLUME (BEAKER) (test vqsv=799) 9.3 fL 9.4-12.4 NUCLEATED RED BLOOD CELLS (BEAKER) (test 0 /100 WBC 0-0 ydfn=897) NEUTROPHILS RELATIVE PERCENT (BEAKER) (test 62 % pcqh=070) LYMPHOCYTES RELATIVE PERCENT (BEAKER) (test 13 % snfo=330) MONOCYTES RELATIVE PERCENT (BEAKER) (test 18 % imkh=182) EOSINOPHILS RELATIVE PERCENT (BEAKER) (test 6 % bcmv=912) BASOPHILS RELATIVE PERCENT (BEAKER) (test 0 % xwud=207) NEUTROPHILS ABSOLUTE COUNT (BEAKER) (test 1.58 K/ L 1.78-5.38 rdqj=954) LYMPHOCYTES ABSOLUTE COUNT (BEAKER) (test 0.33 K/ L 1.32-3.57 toes=768) MONOCYTES ABSOLUTE COUNT (BEAKER) (test nmse=140) 0.46 K/ L 0.30-0.82 EOSINOPHILS ABSOLUTE COUNT (BEAKER) (test 0.15 K/ L 0.04-0.54 ngao=503) BASOPHILS ABSOLUTE COUNT (BEAKER) (test nxzo=970) 0.01 K/ L 0.01-0.08 IMMATURE GRANULOCYTES-RELATIVE PERCENT (BEAKER) 1 % 0-1 (test qqjt=9881) (MANUAL DIFFERENTIAL)2018-01-01 08:55:00 Test Item Value Reference Range Comments TOTAL COUNTED (BEAKER) (test gjno=4523) CALCIUM, [id number] 07:43:00 Test Item Value Reference Range Comments CALCIUM IONIZED (BEAKER) (test niao=632) 1.14 mmol/L 1.12-1.27 PH, BLOOD (BEAKER) (test zhaz=1500) 7.52 [id number] 06:11:00 Test Item Value Reference Range Comments PHOSPHORUS (BEAKER) (test xutm=897) 2.5 mg/dL 2.3-4.7 [id number] 06:11:00 Test Item Value Reference Range Comments MAGNESIUM (BEAKER) (test uazc=239) 1.7 mg/dL 1.6-2.6 COMPREHENSIVE METABOLIC [id number] 06:11:00 Test Item Value Reference Range Comments TOTAL PROTEIN (BEAKER) 5.6 gm/dL 6.0-8.3 (test uvyh=540) ALBUMIN (BEAKER) (test 3.6 g/dL 3.5-5.0 ccsd=6425) ALKALINE PHOSPHATASE 68 U/L 40-150 (BEAKER) (test ygqp=969) BILIRUBIN TOTAL (BEAKER) 2.7 mg/dL 0.2-1.2 (test srnc=038) SODIUM (BEAKER) (test 132 meq/L 136-145 vzys=465) POTASSIUM (BEAKER) (test 4.9 meq/L 3.5-5.1 tnvf=059) CHLORIDE (BEAKER) (test 102 meq/L 98-107 rmbl=214) CO2 (BEAKER) (test 24 meq/L 22-29 rogf=596) BLOOD UREA NITROGEN 20 mg/dL 7-21 (BEAKER) (test aaoo=848) CREATININE (BEAKER) (test 1.17 mg/dL 0.57-1.25 cjoo=236) GLUCOSE RANDOM (BEAKER) 92 mg/dL 70-105 (test wnxb=688) CALCIUM (BEAKER) (test 9.7 mg/dL 8.4-10.2 hend=733) AST (SGOT) (BEAKER) (test 16 U/L 5-34 xvhk=727) ALT (SGPT) (BEAKER) (test 8 U/L 6-55 nhba=305) EGFR (BEAKER) (test 65 mL/min/1.73 sq m ESTIMATED GFR IS NOT izkt=3773) ACCURATE CREATININE CLEARANCE IN PREDICTING GLOMERULAR FILTRATION RATE. ESTIMATED GFR IS NOT APPLICABLE FOR DIALYSIS PATIENTS. Specimen slightly ictericPROTHROMBIN [id number] 06:00:00 Test Item Value Reference Range Comments PROTIME (TIMOTHYAKER) (test mfau=193) 24.0 seconds 11.7-14.7 INR (BEAKER) (test ikia=620) 2.2 <=5.9 RECOMMENDED COUMADIN/WARFARIN INR THERAPY RANGESSTANDARD DOSE: 2.0 - 3.0 Includes: PROPHYLAXIS forvenous thrombosis, systemic embolization; TREATMENT for venous thrombosis and/or pulmonary embolus.HIGH RISK: Target INR is 2.5-3.5 for patients with mechanical heart valves.CT, CHEST, WITHOUT [id number] 19:24:00FINAL REPORT HISTORY: Lung nodule, >=1cm COMPARISON [...] splenomegaly and upper abdominal ascites. Signed: Nick Landeroseport Verified Date/Time: 12/31/2017 19:24:12 Reading Location: [place] [id number] Consult Reading Room 07: 24 PMPERIPHERAL BLOOD SMEAR - HOLD [id number] 19:18:00 Test Item Value Reference Range Comments PERIPHERAL SMEAR SAVE (BEAKER) prepared and saved smear, (test eusr=1223) 12/31/17 RETICULOCYTE [id number] 19:14:00 Test Item Value Reference Range Comments RETICULOCYTE COUNT PCT (BEAKER) (test veml=590) 3.5 % 0.5-1.8 LACTATE DEHYDROGENASE (LDH)2017-12-31 17:47:00 Test Item Value Reference Range Comments LACTATE DEHYDROGENASE (BEAKER) (test ngjg=897) 112 U/L 125-220 BLOOD GAS, [id number] 17:27:00 Test Item Value Reference Range Comments PH ARTERIAL (BEAKER) (test wrwf=262) 7.45 7.35-7.45 PCO2 ARTERIAL (BEAKER) (test ztlo=863) 36 mmHg 35-45 PO2 ARTERIAL (BEAKER) (test cyvp=581) 76 mmHg 80-90 O2 SATURATION ARTERIAL (BEAKER) (test jduo=459) 96.1 % 96.0-97.0 HCO3 ARTERIAL (BEAKER) (test mczi=289) 24 mmol/L 21-29 BASE EXCESS ARTERIAL (BEAKER) (test dtxz=771) 0.2 mmol/L -2.0-3.0 PATIENT TEMPERATURE (BEAKER) (test blxd=4239) 36.4 C FIO2 (BEAKER) (test swjk=0944) 21.0 % MYOCARD IMAGING, MULTI, PHARM, [id number] 15:12:00FINAL REPORT PROCEDURE: Rest/Stress MYOCARDIAL PERFUSION SPECT with regadenoson\\XA9\\ CPT CODE: 17008 INDICATION: Liver transplant evaluation HISTORY: Cardiac risk [...] MDReport Verified Date/Time: 12/31/2017 15:12:03 Reading Location: [address] Reading Room BILIRUBIN, [id number] 14:10:00 Test Item Value Reference Range Comments BILIRUBIN DIRECT (BEAKER) (test zvqh=344) 1.6 mg/dL 0.1-0.5 HEMOGLOBIN AND [id number] 13:22:00 Test Item Value Reference Range Comments HEMOGLOBIN (BEAKER) (test ylnl=896) 7.3 GM/DL 13.7-17.5 HEMATOCRIT (BEAKER) (test dcuz=483) 21.9 % 40.1-51.0 CBC W/PLT COUNT & AUTO [id number] 11:06:00 Test Item Value Reference Range Comments WHITE BLOOD CELL COUNT (BEAKER) (test egju=629) 2.2 K/ L 3.5-10.5 RED BLOOD CELL COUNT (BEAKER) (test sjeg=923) 2.07 M/ L 4.63-6.08 HEMOGLOBIN (BEAKER) (test udem=722) 6.8 GM/DL 13.7-17.5 HEMATOCRIT (BEAKER) (test uicb=915) 19.6 % 40.1-51.0 MEAN CORPUSCULAR VOLUME (BEAKER) (test iyeh=644) 94.7 fL 79.0-92.2 MEAN CORPUSCULAR HEMOGLOBIN (BEAKER) (test 32.9 pg 25.7-32.2 pgfc=296) MEAN CORPUSCULAR HEMOGLOBIN CONC (BEAKER) (test 34.7 GM/DL 32.3-36.5 urgl=538) RED CELL DISTRIBUTION WIDTH (BEAKER) (test 16.9 % 11.6-14.4 qoga=331) PLATELET COUNT (BEAKER) (test ceap=964) 47 K/CU MM 150-450 MEAN PLATELET VOLUME (BEAKER) (test kbsk=049) 9.7 fL 9.4-12.4 NUCLEATED RED BLOOD CELLS (BEAKER) (test 0 /100 WBC 0-0 moyr=378) NEUTROPHILS RELATIVE PERCENT (BEAKER) (test 54 % qvyh=732) LYMPHOCYTES RELATIVE PERCENT (BEAKER) (test 17 % qtqk=593) MONOCYTES RELATIVE PERCENT (BEAKER) (test 21 % rmla=887) EOSINOPHILS RELATIVE PERCENT (BEAKER) (test 8 % rjgh=936) BASOPHILS RELATIVE PERCENT (BEAKER) (test 1 % bsmv=529) NEUTROPHILS ABSOLUTE COUNT (BEAKER) (test 1.17 K/ L 1.78-5.38 sluu=950) LYMPHOCYTES ABSOLUTE COUNT (BEAKER) (test 0.36 K/ L 1.32-3.57 tkse=768) MONOCYTES ABSOLUTE COUNT (BEAKER) (test nkdz=996) 0.45 K/ L 0.30-0.82 EOSINOPHILS ABSOLUTE COUNT (BEAKER) (test 0.17 K/ L 0.04-0.54 gtog=709) BASOPHILS ABSOLUTE COUNT (BEAKER) (test geie=377) 0.01 K/ L 0.01-0.08 IMMATURE GRANULOCYTES-RELATIVE PERCENT (BEAKER) 1 % 0-1 (test ipwj=8908) (MANUAL DIFFERENTIAL)2017-12-31 11:06:00 Test Item Value Reference Range Comments TOTAL COUNTED (BEAKER) (test afrj=9763) [id number] 08:37:00 Test Item Value Reference Range Comments PROTIME (BEAKER) (test ocga=010) 24.0 seconds 11.7-14.7 INR (BEAKER) (test sing=702) 2.2 <=5.9 PARTIAL THROMBOPLASTIN TIME (BEAKER) (test 55.2 seconds 22.5-36.0 ipex=268) RECOMMENDED COUMADIN/WARFARIN INR THERAPY RANGESSTANDARD DOSE: 2.0 - 3.0 Includes: PROPHYLAXIS forvenous thrombosis, systemic embolization; TREATMENT for venous thrombosis and/or pulmonary embolus.HIGH RISK: Target INR is 2.5-3.5 for patients with mechanical heart valves.COMPREHENSIVE METABOLIC [id number] 06:37:00 Test Item Value Reference Range Comments TOTAL PROTEIN (BEAKER) 5.7 gm/dL 6.0-8.3 (test nuuy=673) ALBUMIN (BEAKER) (test 3.7 g/dL 3.5-5.0 ajmr=3282) ALKALINE PHOSPHATASE 70 U/L 40-150 (BEAKER) (test tvke=097) BILIRUBIN TOTAL (BEAKER) 2.6 mg/dL 0.2-1.2 (test hxjd=741) SODIUM (BEAKER) (test 130 meq/L 136-145 kvdc=144) POTASSIUM (BEAKER) (test 5.2 meq/L 3.5-5.1 dgwc=504) CHLORIDE (BEAKER) (test 100 meq/L 98-107 qomx=282) CO2 (BEAKER) (test 25 meq/L 22-29 bkrz=006) BLOOD UREA NITROGEN 20 mg/dL 7-21 (BEAKER) (test olmw=271) CREATININE (BEAKER) (test 1.08 mg/dL 0.57-1.25 wlkw=613) GLUCOSE RANDOM (BEAKER) 91 mg/dL 70-105 (test wiwn=019) CALCIUM (BEAKER) (test 9.6 mg/dL 8.4-10.2 dfmw=339) AST (SGOT) (BEAKER) (test 16 U/L 5-34 afzy=050) ALT (SGPT) (BEAKER) (test 6 U/L 6-55 vxoo=343) EGFR (BEAKER) (test 72 mL/min/1.73 sq m ESTIMATED GFR IS NOT kcet=3555) ACCURATE CREATININE CLEARANCE IN PREDICTING GLOMERULAR FILTRATION RATE. ESTIMATED GFR IS NOT APPLICABLE FOR DIALYSIS PATIENTS. Specimen slightly [id number] 06:01:00 Test Item Value Reference Range Comments RPR SCREEN (BEAKER) (test zimy=524) Nonreactive Nonreactive CRYPTOCOCCAL [id number] 05:59:00 Test Item Value Reference Range Comments CRYPTOCOCCAL ANTIGEN, SERUM (BEAKER) (test Negative Negative, Interference exuf=8169) RAD, MANDIBLE, MIN 4 [id number] 01:37:00Reason for exam:->liver transplant evalShould this be [...] MDReport Verified Date/Time: 12/31/2017 01:37:57 Reading Location: [address] Reading Room Electronically signed by: SLICK BARCENAS M.D. on 04/2018 01:37 AMRAD, CHEST, 2 [id number] 23:32:00Reason for exam:-> liver transplant evalShould this [...] for further evaluation if warranted. Signed: Slick Barcenasort Verified Date/Time: 12/30/2017 23:32:31 Reading Location: [address] Reading Room HEMOGLOBIN [id number] 22:54:00 Test Item Value Reference Range Comments HEMOGLOBIN A1C (BEAKER) (test jfgu=589) 4.1 % 4.3-6.1 HEPATITIS B SURFACE [id number] 16:31:00 Test Item Value Reference Range Comments HEPATITIS B SURFACE ANTIBODY (BEAKER) (test < mIU/mL <8.0 qtnb=695) HEPATITIS B SURFACE [id number] 16:29:00 Test Item Value Reference Range Comments HEPATITIS B SURFACE ANTIGEN (2) (BEAKER) (test Nonreactive Nonreactive efzj=5350) HEPATITIS B CORE ANTIBODY, [id number] 16:29:00 Test Item Value Reference Range Comments HEPATITIS B CORE IGM ANTIBODY (BEAKER) (test Nonreactive Nonreactive bpaq=653) HEPATITIS A ANTIBODY, [id number] 16:29:00 Test Item Value Reference Range Comments HEPATITIS A IGM ANTIBODY (BEAKER) (test Nonreactive Nonreactive cqkm=672) HEPATITIS B CORE ANTIBODY, [id number] 16:29:00 Test Item Value Reference Range Comments HEPATITIS B CORE TOTAL ANTIBODY (BEAKER) (test Nonreactive Nonreactive vhbl=981) [id number] 16:26:00 Test Item Value Reference Range Comments T4 TOTAL (BEAKER) (test zlhg=803) 3.5 ug/dL 4.9-11.7 [id number] 16:26:00 Test Item Value Reference Range Comments T3 TOTAL (BEAKER) (test aujv=659) 42 ng/dL 48-159 [id number] 16:24:00 Test Item Value Reference Range Comments FERRITIN (BEAKER) (test yqle=471) 1460 ng/mL 5-275 VITAMIN D, [id number] 16:24:00 Test Item Value Reference Range Comments VITAMIN D 25-OH (BEAKER) (test zgtt=2212) 6.9 ng/mL 6.6-49.9 Effective 08/06/2017: Reference Range ChangeNew: 6.6-49.9 ng/mL Previous: 13.0 -47.8 ng/mLRecommended Vitamin D Target Range: 30.0-40.0 ng/[id number] 16: 24:00 Test Item Value Reference Range Comments THYROID STIMULATING HORMONE (BEAKER) (test 1.55 uIU/mL 0.35-4.94 lwxg=864) CARCINOEMBRYONIC ANTIGEN (CEA)2017-12-30 16:24:00 Test Item Value Reference Range Comments CARCINOEMBRYONIC ANTIGEN (BEAKER) (test vckj=525) 3.0 ng/mL 0.0-5.0 [id number] 16:23:00 Test Item Value Reference Range Comments PROSTATE SPECIFIC ANTIGEN (BEAKER) (test misv=516) 0.1 ng/mL 0.0-4.0 HIV-1 ANTIGEN WITH HIV-1/2 [id number] 16:23:00 Test Item Value Reference Range Comments HIV-1 ANTIGEN WITH HIV 1\\T\\2 ANTIBODY (2) Nonreactive Nonreactive (BEAKER) (test tuft=4010) HEPATITIS C [id number] 16:23:00 Test Item Value Reference Range Comments HEPATITIS C ANTIBODY (BEAKER) (test sgjg=199) Nonreactive Nonreactive LIPID [id number] 16:06:00 Test Item Value Reference Range Comments TRIGLYCERIDES (BEAKER) (test jwty=343) 38 mg/dL CHOLESTEROL (BEAKER) (test rreb=419) 51 mg/dL HDL CHOLESTEROL (BEAKER) (test xouj=786) 10 mg/dL LDL CHOLESTEROL CALCULATED (BEAKER) (test elfs=328) 33 mg/dL Triglyceride Reference Range: Low Risk [...] Value Reference Range Comments IRON (BEAKER) (test vluh=626) 90 ug/dL 40-160 TOTAL IRON BINDING CAPACITY (BEAKER) (test 85 ug/dL 250-450 lwab=707) IRON % SATURATION (2) (BEAKER) (test jlgi=8683) 106 % 20-55 [id number] 16:04:00 Test Item Value Reference Range Comments TRANSFERRIN (BEAKER) (test hecc=415) 65 mg/dL 174-382 Specimen slightly ictericURIC [id number] 16:02:00 Test Item Value Reference Range Comments URIC ACID (BEAKER) (test obsb=535) 8.5 mg/dL 2.6-7.2 Specimen slightly [id number] 15:50:00 Test Item Value Reference Range Comments FIBRINOGEN LEVEL (BEAKER) (test fprr=866) 161 mg/dl 225-434 BODY FLUID CULTURE + GRAM [id number] 11:45:00 Test Item Value Reference Range Comments CULTURE (BEAKER) (test irlz=9461) No growth GRAM STAIN RESULT (BEAKER) (test No WBCs bkhj=7507) GRAM STAIN RESULT (BEAKER) (test No organisms seen mwzn=19508) CBC W/PLT COUNT & AUTO [id number] 08:05:00 Test Item Value Reference Range Comments WHITE BLOOD CELL COUNT (BEAKER) (test cqfj=982) 2.0 K/ L 3.5-10.5 RED BLOOD CELL COUNT (BEAKER) (test etst=750) 2.20 M/ L 4.63-6.08 HEMOGLOBIN (BEAKER) (test scys=222) 7.1 GM/DL 13.7-17.5 HEMATOCRIT (BEAKER) (test tjns=822) 20.8 % 40.1-51.0 MEAN CORPUSCULAR VOLUME (BEAKER) (test qmre=577) 94.5 fL 79.0-92.2 MEAN CORPUSCULAR HEMOGLOBIN (BEAKER) (test 32.3 pg 25.7-32.2 farl=048) MEAN CORPUSCULAR HEMOGLOBIN CONC (BEAKER) (test 34.1 GM/DL 32.3-36.5 ptav=112) RED CELL DISTRIBUTION WIDTH (BEAKER) (test 17.0 % 11.6-14.4 mjpl=214) PLATELET COUNT (BEAKER) (test nowi=925) 52 K/CU MM 150-450 MEAN PLATELET VOLUME (BEAKER) (test byxl=521) 10.7 fL 9.4-12.4 NUCLEATED RED BLOOD CELLS (BEAKER) (test 0 /100 WBC 0-0 ktsq=821) NEUTROPHILS RELATIVE PERCENT (BEAKER) (test 55 % iber=717) LYMPHOCYTES RELATIVE PERCENT (BEAKER) (test 16 % fydx=952) MONOCYTES RELATIVE PERCENT (BEAKER) (test 20 % femr=004) EOSINOPHILS RELATIVE PERCENT (BEAKER) (test 8 % qaag=153) BASOPHILS RELATIVE PERCENT (BEAKER) (test 1 % hhcn=155) NEUTROPHILS ABSOLUTE COUNT (BEAKER) (test 1.10 K/ L 1.78-5.38 bhfo=225) LYMPHOCYTES ABSOLUTE COUNT (BEAKER) (test 0.32 K/ L 1.32-3.57 zlsr=278) MONOCYTES ABSOLUTE COUNT (BEAKER) (test cfnl=985) 0.40 K/ L 0.30-0.82 EOSINOPHILS ABSOLUTE COUNT (BEAKER) (test 0.16 K/ L 0.04-0.54 ydtv=216) BASOPHILS ABSOLUTE COUNT (BEAKER) (test bjjy=063) 0.01 K/ L 0.01-0.08 IMMATURE GRANULOCYTES-RELATIVE PERCENT (BEAKER) 1 % 0-1 (test zxyn=4431) (MANUAL DIFFERENTIAL)2017-12-30 08:05:00 Test Item Value Reference Range Comments TOTAL COUNTED (BEAKER) (test kctn=6224) URINALYSIS W/ [id number] 06:46:00 Test Item Value Reference Range Comments COLOR (BEAKER) (test rmzc=811) Yellow CLARITY (BEAKER) (test jkkr=000) Clear SPECIFIC GRAVITY UA (BEAKER) (test feyx=184) 1.008 1.001-1.035 PH UA (BEAKER) (test budh=255) 6.0 5.0-8.0 PROTEIN UA (BEAKER) (test eqsr=534) Negative Negative GLUCOSE UA (BEAKER) (test lwab=668) Negative Negative KETONES UA (BEAKER) (test ohxr=090) Negative Negative BILIRUBIN UA (BEAKER) (test dolt=415) Negative Negative BLOOD UA (BEAKER) (test jjlh=260) Negative Negative NITRITE UA (BEAKER) (test xnqr=383) Negative Negative LEUKOCYTE ESTERASE UA (BEAKER) (test zwfa=658) Negative Negative UROBILINOGEN UA (BEAKER) (test szym=002) 0.2 mg/dL 0.2-1.0 RBC UA (BEAKER) (test epru=109) 0 /HPF WBC UA (BEAKER) (test wkon=131) 0 /HPF HYALINE CASTS (BEAKER) (test borf=728) 5 /LPF SOURCE(BEAKER) (test tfnq=1851) Urine, Voided SODIUM, RANDOM [id number] 06:35:00 Test Item Value Reference Range Comments SODIUM URINE (BEAKER) (test wajn=699) < meq/L Reference Range: No NormalsPROTEIN, RANDOM [id number] 06:35:00 Test Item Value Reference Range Comments PROTEIN, URINE (BEAKER) (test zbry=6347) < mg/dL 0-14 [id number] 06:21:00 Test Item Value Reference Range Comments MAGNESIUM (BEAKER) (test 1.8 mg/dL 1.6-2.6 Specimen slightly hemolyzed mnnr=239) [id number] 06:21:00 Test Item Value Reference Range Comments PHOSPHORUS (BEAKER) (test 2.9 mg/dL 2.3-4.7 Specimen slightly hemolyzed iuqx=994) COMPREHENSIVE METABOLIC [id number] 06:21:00 Test Item Value Reference Range Comments TOTAL PROTEIN (BEAKER) 5.6 gm/dL 6.0-8.3 Specimen slightly (test zlcg=196) hemolyzed ALBUMIN (BEAKER) (test 3.5 g/dL 3.5-5.0 Specimen slightly nxqt=9697) hemolyzed ALKALINE PHOSPHATASE 75 U/L 40-150 (BEAKER) (test awoc=121) BILIRUBIN TOTAL (BEAKER) 3.0 mg/dL 0.2-1.2 Specimen slightly (test rixz=171) hemolyzed SODIUM (BEAKER) (test 127 meq/L 136-145 mgit=616) POTASSIUM (BEAKER) (test 5.2 meq/L 3.5-5.1 Specimen slightly bimj=822) hemolyzed CHLORIDE (BEAKER) (test 97 meq/L 98-107 ymnx=850) CO2 (BEAKER) (test 24 meq/L 22-29 pjmt=297) BLOOD UREA NITROGEN 22 mg/dL 7-21 (BEAKER) (test ugfp=585) CREATININE (BEAKER) (test 1.11 mg/dL 0.57-1.25 Specimen slightly pnmu=612) hemolyzed GLUCOSE RANDOM (BEAKER) 94 mg/dL 70-105 (test ifek=134) CALCIUM (BEAKER) (test 9.4 mg/dL 8.4-10.2 pije=127) AST (SGOT) (BEAKER) (test 22 U/L 5-34 Specimen slightly vnsm=406) hemolyzed ALT (SGPT) (BEAKER) (test 7 U/L 6-55 Specimen slightly qfqn=676) hemolyzed EGFR (BEAKER) (test 70 mL/min/1.73 sq m ESTIMATED GFR IS NOT qfxc=9085) ACCURATE CREATININE CLEARANCE IN PREDICTING GLOMERULAR FILTRATION RATE. ESTIMATED GFR IS NOT APPLICABLE FOR DIALYSIS PATIENTS. Specimen slightly ictericCREATININE, RANDOM [id number] 06:19:00 Test Item Value Reference Range Comments CREATININE URINE (BEAKER) (test capx=818) 60.6 mg/dL Reference Range: No [id number] 13:43:00 Test Item Value Reference Range Comments ETHANOL (BEAKER) (test zywd=879) < mg/dL <=10 COMPREHENSIVE METABOLIC [id number] 08:23:00 Test Item Value Reference Range Comments TOTAL PROTEIN (BEAKER) 5.5 gm/dL 6.0-8.3 (test ncho=682) ALBUMIN (BEAKER) (test 3.3 g/dL 3.5-5.0 oohs=9506) ALKALINE PHOSPHATASE 85 U/L 40-150 (BEAKER) (test irrz=897) BILIRUBIN TOTAL (BEAKER) 3.8 mg/dL 0.2-1.2 (test cmkv=392) SODIUM (BEAKER) (test 125 meq/L 136-145 hdux=034) POTASSIUM (BEAKER) (test 4.7 meq/L 3.5-5.1 oxyl=608) CHLORIDE (BEAKER) (test 96 meq/L 98-107 qeir=258) CO2 (BEAKER) (test 21 meq/L 22-29 dpcs=863) BLOOD UREA NITROGEN 22 mg/dL 7-21 (BEAKER) (test cwwf=000) CREATININE (BEAKER) (test 1.26 mg/dL 0.57-1.25 flby=351) GLUCOSE RANDOM (BEAKER) 95 mg/dL 70-105 (test rmjd=670) CALCIUM (BEAKER) (test 9.1 mg/dL 8.4-10.2 lvrb=362) AST (SGOT) (BEAKER) (test 20 U/L 5-34 whnw=888) ALT (SGPT) (BEAKER) (test 8 U/L 6-55 ryaa=550) EGFR (BEAKER) (test 60 mL/min/1.73 sq m ESTIMATED GFR IS NOT vhlj=2741) ACCURATE CREATININE CLEARANCE IN PREDICTING GLOMERULAR FILTRATION RATE. ESTIMATED GFR IS NOT APPLICABLE FOR DIALYSIS PATIENTS. Specimen slightly ictericCBC W/PLT COUNT & AUTO [id number] 07:17 :00 Test Item Value Reference Range Comments WHITE BLOOD CELL COUNT (BEAKER) (test tags=555) 2.8 K/ L 3.5-10.5 RED BLOOD CELL COUNT (BEAKER) (test wmlb=459) 2.28 M/ L 4.63-6.08 HEMOGLOBIN (BEAKER) (test iear=654) 7.3 GM/DL 13.7-17.5 HEMATOCRIT (BEAKER) (test sryh=646) 21.4 % 40.1-51.0 MEAN CORPUSCULAR VOLUME (BEAKER) (test eppa=364) 93.9 fL 79.0-92.2 MEAN CORPUSCULAR HEMOGLOBIN (BEAKER) (test 32.0 pg 25.7-32.2 rqay=863) MEAN CORPUSCULAR HEMOGLOBIN CONC (BEAKER) (test 34.1 GM/DL 32.3-36.5 ezlu=602) RED CELL DISTRIBUTION WIDTH (BEAKER) (test 16.9 % 11.6-14.4 rycn=008) PLATELET COUNT (BEAKER) (test ddhz=908) 52 K/CU MM 150-450 MEAN PLATELET VOLUME (BEAKER) (test pbqm=127) 9.8 fL 9.4-12.4 NUCLEATED RED BLOOD CELLS (BEAKER) (test 0 /100 WBC 0-0 gopk=210) NEUTROPHILS RELATIVE PERCENT (BEAKER) (test 61 % suqy=531) LYMPHOCYTES RELATIVE PERCENT (BEAKER) (test 14 % acrp=156) MONOCYTES RELATIVE PERCENT (BEAKER) (test 18 % gnpk=419) EOSINOPHILS RELATIVE PERCENT (BEAKER) (test 7 % nmfh=961) BASOPHILS RELATIVE PERCENT (BEAKER) (test 0 % wdop=199) NEUTROPHILS ABSOLUTE COUNT (BEAKER) (test 1.69 K/ L 1.78-5.38 elqr=323) LYMPHOCYTES ABSOLUTE COUNT (BEAKER) (test 0.38 K/ L 1.32-3.57 foih=533) MONOCYTES ABSOLUTE COUNT (BEAKER) (test vbbp=479) 0.51 K/ L 0.30-0.82 EOSINOPHILS ABSOLUTE COUNT (BEAKER) (test 0.18 K/ L 0.04-0.54 crqo=666) BASOPHILS ABSOLUTE COUNT (BEAKER) (test btzx=827) 0.01 K/ L 0.01-0.08 IMMATURE GRANULOCYTES-RELATIVE PERCENT (BEAKER) 1 % 0-1 (test hwfe=1216) CT, [id number] 22:20:00FINAL REPORT EXAM: CT of the abdomen [...] MDReport Verified Date/Time: 12/28/2017 22:20:52 Reading Location: [address] Reading Room CBC W/PLT COUNT & AUTO [id number] 18:06:00 Test Item Value Reference Range Comments WHITE BLOOD CELL COUNT (BEAKER) (test tpmb=496) 2.9 K/ L 3.5-10.5 RED BLOOD CELL COUNT (BEAKER) (test htfv=019) 2.03 M/ L 4.63-6.08 HEMOGLOBIN (BEAKER) (test ldca=045) 6.5 GM/DL 13.7-17.5 HEMATOCRIT (BEAKER) (test tdry=068) 19.2 % 40.1-51.0 MEAN CORPUSCULAR VOLUME (BEAKER) (test wfyv=201) 94.6 fL 79.0-92.2 MEAN CORPUSCULAR HEMOGLOBIN (BEAKER) (test 32.0 pg 25.7-32.2 upcj=916) MEAN CORPUSCULAR HEMOGLOBIN CONC (BEAKER) (test 33.9 GM/DL 32.3-36.5 mojj=585) RED CELL DISTRIBUTION WIDTH (BEAKER) (test 17.6 % 11.6-14.4 hdwg=452) PLATELET COUNT (BEAKER) (test ueen=440) 46 K/CU MM 150-450 MEAN PLATELET VOLUME (BEAKER) (test hypi=123) 9.3 fL 9.4-12.4 NUCLEATED RED BLOOD CELLS (BEAKER) (test 0 /100 WBC 0-0 aqby=003) NEUTROPHILS RELATIVE PERCENT (BEAKER) (test 66 % vxrc=591) LYMPHOCYTES RELATIVE PERCENT (BEAKER) (test 12 % gfmk=988) MONOCYTES RELATIVE PERCENT (BEAKER) (test 15 % khdy=357) EOSINOPHILS RELATIVE PERCENT (BEAKER) (test 6 % hrmj=863) BASOPHILS RELATIVE PERCENT (BEAKER) (test 0 % mahh=648) NEUTROPHILS ABSOLUTE COUNT (BEAKER) (test 1.92 K/ L 1.78-5.38 koeb=431) LYMPHOCYTES ABSOLUTE COUNT (BEAKER) (test 0.36 K/ L 1.32-3.57 znzm=933) MONOCYTES ABSOLUTE COUNT (BEAKER) (test gwlp=777) 0.44 K/ L 0.30-0.82 EOSINOPHILS ABSOLUTE COUNT (BEAKER) (test 0.16 K/ L 0.04-0.54 pacn=729) BASOPHILS ABSOLUTE COUNT (BEAKER) (test ztor=431) 0.01 K/ L 0.01-0.08 IMMATURE GRANULOCYTES-RELATIVE PERCENT (BEAKER) 1 % 0-1 (test osxm=3298) CBC W/PLT COUNT & AUTO [id number] 12:30:00 Test Item Value Reference Range Comments WHITE BLOOD CELL COUNT (BEAKER) (test ikkb=498) 3.1 K/ L 3.5-10.5 RED BLOOD CELL COUNT (BEAKER) (test hnzj=510) 2.09 M/ L 4.63-6.08 HEMOGLOBIN (BEAKER) (test vhqk=284) 6.8 GM/DL 13.7-17.5 HEMATOCRIT (BEAKER) (test otdz=868) 19.9 % 40.1-51.0 MEAN CORPUSCULAR VOLUME (BEAKER) (test pcqj=802) 95.2 fL 79.0-92.2 MEAN CORPUSCULAR HEMOGLOBIN (BEAKER) (test 32.5 pg 25.7-32.2 lwpo=426) MEAN CORPUSCULAR HEMOGLOBIN CONC (BEAKER) (test 34.2 GM/DL 32.3-36.5 abxf=925) RED CELL DISTRIBUTION WIDTH (BEAKER) (test 17.5 % 11.6-14.4 osjt=777) PLATELET COUNT (BEAKER) (test wewm=750) 65 K/CU MM 150-450 MEAN PLATELET VOLUME (BEAKER) (test yfsp=030) 10.6 fL 9.4-12.4 NUCLEATED RED BLOOD CELLS (BEAKER) (test 0 /100 WBC 0-0 zwwc=456) NEUTROPHILS RELATIVE PERCENT (BEAKER) (test 60 % egwq=123) LYMPHOCYTES RELATIVE PERCENT (BEAKER) (test 14 % iiaa=798) MONOCYTES RELATIVE PERCENT (BEAKER) (test 17 % excm=791) EOSINOPHILS RELATIVE PERCENT (BEAKER) (test 8 % zsjv=382) BASOPHILS RELATIVE PERCENT (BEAKER) (test 0 % nmnh=085) NEUTROPHILS ABSOLUTE COUNT (BEAKER) (test 1.85 K/ L 1.78-5.38 qshl=736) LYMPHOCYTES ABSOLUTE COUNT (BEAKER) (test 0.42 K/ L 1.32-3.57 litw=027) MONOCYTES ABSOLUTE COUNT (BEAKER) (test auvb=263) 0.52 K/ L 0.30-0.82 EOSINOPHILS ABSOLUTE COUNT (BEAKER) (test 0.26 K/ L 0.04-0.54 fbsb=518) BASOPHILS ABSOLUTE COUNT (BEAKER) (test diqk=468) 0.01 K/ L 0.01-0.08 IMMATURE GRANULOCYTES-RELATIVE PERCENT (BEAKER) 1 % 0-1 (test esrs=1650) U/S, [id number] 06:59:00Limit fluid removal to no more than 5 litersReason for exam:->ascites, concern for sbpShould thisbe performed at the bedside?->NoFINAL REPORT Paracentesis dated 2017 Procedure: Ultrasound-guided paracentesis. Preprocedure diagnosis: Ascites Postprocedure diagnosis: Ascites Conscious sedation: None. Radiologist: Lena Lynn M.D. Second [facility] Assessment: None Anesthesia: 1% Xylocaine mixed with sodium bicarbonate local anesthesia. Technique: After obtaining informed consent, ultrasound-guided paracentesis was performed under usual sterile technique. Using a 5 thai drainage catheter, puncture was made in the right lower quadrant abdomen. Approximately 5000 cc of serous fluid was removed. Patient tolerated the procedure well without complication. Complication: None Graft/ Implant: None Estimated Blood Loss: NoneImpression: Ultrasound-guided paracentesis. Signed: Lena Lynneport Verified Date/Time: 12/28/2017 06:59 :16 Reading Location: [address] Body Reading Room ALPHA FETOPROTEIN (AFP), TUMOR [id number] 06:22:00 Test Item Value Reference Range Comments ALPHA-FETOPROTEIN (BEAKER) (test zguq=7402) 4.1 ng/mL <10.0 COMPREHENSIVE METABOLIC [id number] 06:00:00 Test Item Value Reference Range Comments TOTAL PROTEIN (BEAKER) 5.3 gm/dL 6.0-8.3 (test vwah=742) ALBUMIN (BEAKER) (test 2.7 g/dL 3.5-5.0 uehv=9934) ALKALINE PHOSPHATASE 94 U/L 40-150 (BEAKER) (test emmw=748) BILIRUBIN TOTAL (BEAKER) 3.7 mg/dL 0.2-1.2 (test kfyj=471) SODIUM (BEAKER) (test 124 meq/L 136-145 pzgn=694) POTASSIUM (BEAKER) (test 4.6 meq/L 3.5-5.1 hfop=768) CHLORIDE (BEAKER) (test 96 meq/L 98-107 uhjq=408) CO2 (BEAKER) (test 22 meq/L 22-29 pkzz=767) BLOOD UREA NITROGEN 22 mg/dL 7-21 (BEAKER) (test dmhc=388) CREATININE (BEAKER) (test 1.40 mg/dL 0.57-1.25 nzfl=682) GLUCOSE RANDOM (BEAKER) 89 mg/dL 70-105 (test btmi=839) CALCIUM (BEAKER) (test 8.8 mg/dL 8.4-10.2 tamk=013) AST (SGOT) (BEAKER) (test 25 U/L 5-34 yeop=749) ALT (SGPT) (BEAKER) (test 10 U/L 6-55 rgdl=714) EGFR (BEAKER) (test 53 mL/min/1.73 sq m ESTIMATED GFR IS NOT ajne=4648) ACCURATE CREATININE CLEARANCE IN PREDICTING GLOMERULAR FILTRATION RATE. ESTIMATED GFR IS NOT APPLICABLE FOR DIALYSIS PATIENTS. Specimen slightly ictericCBC W/PLT COUNT & AUTO [id number] 05:50 :00 Test Item Value Reference Range Comments WHITE BLOOD CELL COUNT (BEAKER) (test nxgl=802) 3.1 K/ L 3.5-10.5 RED BLOOD CELL COUNT (BEAKER) (test ewem=373) 2.00 M/ L 4.63-6.08 HEMOGLOBIN (BEAKER) (test lfqh=144) 6.4 GM/DL 13.7-17.5 HEMATOCRIT (BEAKER) (test hnqn=095) 18.9 % 40.1-51.0 MEAN CORPUSCULAR VOLUME (BEAKER) (test pzjn=218) 94.5 fL 79.0-92.2 MEAN CORPUSCULAR HEMOGLOBIN (BEAKER) (test 32.0 pg 25.7-32.2 rnhb=069) MEAN CORPUSCULAR HEMOGLOBIN CONC (BEAKER) (test 33.9 GM/DL 32.3-36.5 ccfr=658) RED CELL DISTRIBUTION WIDTH (BEAKER) (test 17.9 % 11.6-14.4 mqml=364) PLATELET COUNT (BEAKER) (test zhjv=293) 59 K/CU MM 150-450 MEAN PLATELET VOLUME (BEAKER) (test ucbs=253) 10.4 fL 9.4-12.4 NUCLEATED RED BLOOD CELLS (BEAKER) (test 0 /100 WBC 0-0 lbdq=782) NEUTROPHILS RELATIVE PERCENT (BEAKER) (test 63 % auah=961) LYMPHOCYTES RELATIVE PERCENT (BEAKER) (test 14 % zutb=633) MONOCYTES RELATIVE PERCENT (BEAKER) (test 15 % iiup=849) EOSINOPHILS RELATIVE PERCENT (BEAKER) (test 7 % rool=537) BASOPHILS RELATIVE PERCENT (BEAKER) (test 0 % vhhp=766) NEUTROPHILS ABSOLUTE COUNT (BEAKER) (test 1.94 K/ L 1.78-5.38 ktnt=185) LYMPHOCYTES ABSOLUTE COUNT (BEAKER) (test 0.44 K/ L 1.32-3.57 ipfk=323) MONOCYTES ABSOLUTE COUNT (BEAKER) (test icdr=771) 0.47 K/ L 0.30-0.82 EOSINOPHILS ABSOLUTE COUNT (BEAKER) (test 0.21 K/ L 0.04-0.54 xtyh=027) BASOPHILS ABSOLUTE COUNT (BEAKER) (test askb=626) 0.01 K/ L 0.01-0.08 IMMATURE GRANULOCYTES-RELATIVE PERCENT (BEAKER) 1 % 0-1 (test zhpw=8204) BODY FLUID CELL COUNT WITH [id number] 20:39:00 Test Item Value Reference Range Comments APPEARANCE FLUID (BEAKER) (test alec=840) Slightly Hazy Clear COLOR FLUID (BEAKER) (test kyxg=669) Yellow Colorless, Straw RBC FLUID (BEAKER) (test ucev=164) 90 /cu mm <=1 ADJUSTED WBC FLUID (BEAKER) (test jtql=0605) 47 /cu mm <=5 LINING CELLS (BEAKER) (test ryww=5877) 3 /cu mm <=1 NEUTROPHILS FLUID (BEAKER) (test rwdj=7753) 2 % LYMPHS FLUID (BEAKER) (test tnyw=735) 19 % MONO/MACROPHAGE FLUID (BEAKER) (test 79 % omie=781) EOSINOPHILS FLUID (BEAKER) (test eomi=463) 0 % BASO FLUID (BEAKER) (test eyiz=988) 0 % CONTAINER BODY FLUID (BEAKER) (test EDTA Tube ujdt=4532) ALBUMIN, BODY [id number] 20:14:00 Test Item Value Reference Range Comments ALBUMIN FLUID (BEAKER) (test ssbe=462) 0.4 gm/dL Reference Range: No Normals Assay performance has not been validated for this type of specimen.BASIC METABOLIC [id number] 10:31:00 Test Item Value Reference Range Comments SODIUM (BEAKER) (test 125 meq/L 136-145 djtd=567) POTASSIUM (BEAKER) (test 4.5 meq/L 3.5-5.1 gywu=902) CHLORIDE (BEAKER) (test 98 meq/L 98-107 qbjj=455) CO2 (BEAKER) (test 20 meq/L 22-29 xpbv=283) BLOOD UREA NITROGEN 22 mg/dL 7-21 (BEAKER) (test fyzd=609) CREATININE (BEAKER) (test 1.45 mg/dL 0.57-1.25 qqtw=159) GLUCOSE RANDOM (BEAKER) 87 mg/dL 70-105 (test rvdr=735) CALCIUM (BEAKER) (test 8.6 mg/dL 8.4-10.2 deuq=759) EGFR (BEAKER) (test 51 mL/min/1.73 sq m ESTIMATED GFR IS NOT yvoq=9314) ACCURATE CREATININE CLEARANCE IN PREDICTING GLOMERULAR FILTRATION RATE. ESTIMATED GFR IS NOT APPLICABLE FOR DIALYSIS PATIENTS. Specimen slightly ictericHEPATIC FUNCTION [id number] 10:31:00 Test Item Value Reference Range Comments TOTAL PROTEIN (BEAKER) (test eupq=956) 5.8 gm/dL 6.0-8.3 ALBUMIN (BEAKER) (test sxld=6491) 2.4 g/dL 3.5-5.0 BILIRUBIN TOTAL (BEAKER) (test ydmr=079) 4.1 mg/dL 0.2-1.2 BILIRUBIN DIRECT (BEAKER) (test ashv=618) 3.1 mg/dL 0.1-0.5 ALKALINE PHOSPHATASE (BEAKER) (test qmtz=840) 126 U/L 40-150 AST (SGOT) (BEAKER) (test hgbj=791) 28 U/L 5-34 ALT (SGPT) (BEAKER) (test qpmo=874) 13 U/L 6-55 Specimen slightly ictericCBC W/PLT COUNT & AUTO [id number] 10:09 :00 Test Item Value Reference Range Comments WHITE BLOOD CELL COUNT (BEAKER) (test bpow=973) 5.5 K/ L 3.5-10.5 RED BLOOD CELL COUNT (BEAKER) (test gmkm=602) 2.56 M/ L 4.63-6.08 HEMOGLOBIN (BEAKER) (test lghr=626) 8.1 GM/DL 13.7-17.5 HEMATOCRIT (BEAKER) (test wyqv=618) 24.2 % 40.1-51.0 MEAN CORPUSCULAR VOLUME (BEAKER) (test szla=517) 94.5 fL 79.0-92.2 MEAN CORPUSCULAR HEMOGLOBIN (BEAKER) (test 31.6 pg 25.7-32.2 kihe=144) MEAN CORPUSCULAR HEMOGLOBIN CONC (BEAKER) (test 33.5 GM/DL 32.3-36.5 ezut=638) RED CELL DISTRIBUTION WIDTH (BEAKER) (test 18.6 % 11.6-14.4 thim=542) PLATELET COUNT (BEAKER) (test gkia=163) 86 K/CU MM 150-450 MEAN PLATELET VOLUME (BEAKER) (test ilcn=395) 9.7 fL 9.4-12.4 NUCLEATED RED BLOOD CELLS (BEAKER) (test 0 /100 WBC 0-0 joif=653) NEUTROPHILS RELATIVE PERCENT (BEAKER) (test 65 % bhck=914) LYMPHOCYTES RELATIVE PERCENT (BEAKER) (test 13 % hnai=334) MONOCYTES RELATIVE PERCENT (BEAKER) (test 14 % fcja=393) EOSINOPHILS RELATIVE PERCENT (BEAKER) (test 6 % ifya=946) BASOPHILS RELATIVE PERCENT (BEAKER) (test 0 % fcmj=053) NEUTROPHILS ABSOLUTE COUNT (BEAKER) (test 3.59 K/ L 1.78-5.38 ppme=480) LYMPHOCYTES ABSOLUTE COUNT (BEAKER) (test 0.73 K/ L 1.32-3.57 nzdq=400) MONOCYTES ABSOLUTE COUNT (BEAKER) (test iyqt=623) 0.76 K/ L 0.30-0.82 EOSINOPHILS ABSOLUTE COUNT (BEAKER) (test 0.33 K/ L 0.04-0.54 lwel=398) BASOPHILS ABSOLUTE COUNT (BEAKER) (test ines=434) 0.02 K/ L 0.01-0.08 IMMATURE GRANULOCYTES-RELATIVE PERCENT (BEAKER) 1 % 0-1 (test vinq=4617) PROTHROMBIN TIME/[id number] 07:51:00 Test Item Value Reference Range Comments PROTIME (BEAKER) (test lvci=535) 23.8 seconds 11.7-14.7 INR (BEAKER) (test rgfv=194) 2.1 <=5.9 RECOMMENDED COUMADIN/WARFARIN INR THERAPY RANGESSTANDARD DOSE: 2.0 - 3.0 Includes: PROPHYLAXIS forvenous thrombosis, systemic embolization; TREATMENT for venous thrombosis and/or pulmonary embolus.HIGH RISK: Target INR is 2.5-3.5 for patients with mechanical heart valves.BLOOD [id number] 05:02:00 Test Item Value Reference Range Comments CULTURE (BEAKER) (test nhwn=7142) No growth in 5 days BLOOD [id number] 05:02:00 Test Item Value Reference Range Comments CULTURE (BEAKER) (test uxlj=3171) No growth in 5 days BODY FLUID CULTURE + GRAM [id number] 09:05:00 Test Item Value Reference Range Comments CULTURE (BEAKER) (test onxg=5720) No growth GRAM STAIN RESULT (BEAKER) (test No White blood cells seen namu=8454) GRAM STAIN RESULT (BEAKER) (test No organisms seen honp=08527) RAPID DRUG SCREEN, [id number] 23:13:00 Test Item Value Reference Range Comments BARBITURATE URINE (BEAKER) (test wljp=794) Negative Negative BENZODIAZEPINE SCREEN URINE (BEAKER) (test Negative Negative rkst=811) COCAINE (METAB.) SCREEN (BEAKER) (test agvh=8568) Negative Negative METHADONE SCREEN (BEAKER) (test eakf=5014) Negative Negative OPIATE SCREEN URINE (BEAKER) (test cbjz=683) Negative Negative CANNABINOID SCREEN URINE (BEAKER) (test goqp=978) Negative Negative AMPH/METHAMPH SCREEN (BEAKER) (test zqeg=7619) Negative Negative PHENCYCLIDINE SCREEN URINE (BEAKER) (test xesp=750) Negative Negative OXYCODONE SCREEN URINE (BEAKER) (test cdzh=0237) Negative Negative DRUG CUTOFF CONC.Cocaine 300 ng/mL Cannabinoid 50 ng/mL Benzodiazepine 200 ng/mLBarbiturate 200 ng/ mLPhencyclidine 25 ng/mLOpiate 300 ng/mLMethadone 300 ng/mLAmphetamine/ 1000 ng/mL MethamphetamineOxycodone 300 ng/mLThis assay provides an unconfirmed qualitative test result for the clinical management of patients in emergency situations. Chain of custody not maintained. Some yglc-hzw-khnpbdj medications, as well as adulterants, may cause inaccurate results. Clinical correlation should be applied. A more comprehensive drug screen or confirmation of a detected drug may be performed upon request.MR, ABDOMEN, [id number] 13:52:00FINAL REPORT MRI of the abdomen with [...] MDReport Verified Date/Time: 09/05/2017 13:52:35 Reading Location: [facility] [id number] CT BodyReading Room CBC W/PLT COUNT & AUTO [id number] 05:46:00 Test Item Value Reference Range Comments WHITE BLOOD CELL COUNT (BEAKER) (test uhog=848) 4.7 K/ L 3.5-10.5 RED BLOOD CELL COUNT (BEAKER) (test eimg=067) 2.49 M/ L 4.63-6.08 HEMOGLOBIN (BEAKER) (test bokd=385) 7.9 GM/DL 13.7-17.5 HEMATOCRIT (BEAKER) (test toxl=359) 22.6 % 40.1-51.0 MEAN CORPUSCULAR VOLUME (BEAKER) (test kgkb=264) 90.8 fL 79.0-92.2 MEAN CORPUSCULAR HEMOGLOBIN (BEAKER) (test 31.7 pg 25.7-32.2 zvzp=760) MEAN CORPUSCULAR HEMOGLOBIN CONC (BEAKER) (test 35.0 GM/DL 32.3-36.5 ktth=809) RED CELL DISTRIBUTION WIDTH (BEAKER) (test 18.8 % 11.6-14.4 cmzi=812) PLATELET COUNT (BEAKER) (test wyce=018) 60 K/CU MM 150-450 MEAN PLATELET VOLUME (BEAKER) (test lhxk=076) 9.2 fL 9.4-12.4 NUCLEATED RED BLOOD CELLS (BEAKER) (test 0 /100 WBC 0-0 eypi=979) NEUTROPHILS RELATIVE PERCENT (BEAKER) (test 65 % xdre=701) LYMPHOCYTES RELATIVE PERCENT (BEAKER) (test 13 % wvwc=003) MONOCYTES RELATIVE PERCENT (BEAKER) (test 15 % ocem=912) EOSINOPHILS RELATIVE PERCENT (BEAKER) (test 6 % zxmq=946) BASOPHILS RELATIVE PERCENT (BEAKER) (test 0 % crkg=973) NEUTROPHILS ABSOLUTE COUNT (BEAKER) (test 3.05 K/ L 1.78-5.38 vjgn=089) LYMPHOCYTES ABSOLUTE COUNT (BEAKER) (test 0.62 K/ L 1.32-3.57 ovkv=258) MONOCYTES ABSOLUTE COUNT (BEAKER) (test onoe=057) 0.68 K/ L 0.30-0.82 EOSINOPHILS ABSOLUTE COUNT (BEAKER) (test 0.28 K/ L 0.04-0.54 ijjb=019) BASOPHILS ABSOLUTE COUNT (BEAKER) (test tgta=035) 0.02 K/ L 0.01-0.08 IMMATURE GRANULOCYTES-RELATIVE PERCENT (BEAKER) 1 % 0-1 (test fgbn=2464) BASIC METABOLIC [id number] 05:44:00 Test Item Value Reference Range Comments SODIUM (BEAKER) (test 127 meq/L 136-145 kcix=874) POTASSIUM (BEAKER) (test 4.5 meq/L 3.5-5.1 advg=752) CHLORIDE (BEAKER) (test 101 meq/L 98-107 qodt=538) CO2 (BEAKER) (test 19 meq/L 22-29 qnon=537) BLOOD UREA NITROGEN 17 mg/dL 7-21 (BEAKER) (test incl=947) CREATININE (BEAKER) (test 0.91 mg/dL 0.57-1.25 zarh=862) GLUCOSE RANDOM (BEAKER) 107 mg/dL 70-105 (test xity=098) CALCIUM (BEAKER) (test 9.4 mg/dL 8.4-10.2 niij=288) EGFR (BEAKER) (test 87 mL/min/1.73 sq m ESTIMATED GFR IS NOT puwv=9828) ACCURATE CREATININE CLEARANCE IN PREDICTING GLOMERULAR FILTRATION RATE. ESTIMATED GFR IS NOT APPLICABLE FOR DIALYSIS PATIENTS. Specimen moderately ictericHEPATIC FUNCTION [id number] 05:44:00 Test Item Value Reference Range Comments TOTAL PROTEIN (BEAKER) (test dksf=773) 5.6 gm/dL 6.0-8.3 ALBUMIN (BEAKER) (test xwkr=2304) 3.3 g/dL 3.5-5.0 BILIRUBIN TOTAL (BEAKER) (test oxzc=004) 10.3 mg/dL 0.2-1.2 BILIRUBIN DIRECT (BEAKER) (test mytb=307) 6.8 mg/dL 0.1-0.5 ALKALINE PHOSPHATASE (BEAKER) (test ryvr=455) 103 U/L 40-150 AST (SGOT) (BEAKER) (test vhvt=923) 17 U/L 5-34 ALT (SGPT) (BEAKER) (test hbwo=768) 8 U/L 6-55 Specimen moderately ictericPT/[id number] 05:31:00 Test Item Value Reference Range Comments PROTIME (BEAKER) (test jarr=756) 25.6 seconds 11.7-14.7 INR (BEAKER) (test nlgg=644) 2.3 <=5.9 PARTIAL THROMBOPLASTIN TIME (BEAKER) (test 51.6 seconds 22.5-36.0 tyhq=319) RECOMMENDED COUMADIN/WARFARIN INR THERAPY RANGESSTANDARD DOSE: 2.0 - 3.0 Includes: PROPHYLAXIS forvenous thrombosis, systemic embolization; TREATMENT for venous thrombosis and/or pulmonary embolus.HIGH RISK: Target INR is 2.5-3.5 for patients with mechanical heart valves.PROTHROMBIN TIME/[id number] 05:30: 00 Test Item Value Reference Range Comments PROTIME (BEAKER) (test nvsj=963) 25.6 seconds 11.7-14.7 INR (BEAKER) (test ylic=633) 2.3 <=5.9 RECOMMENDED COUMADIN/WARFARIN INR THERAPY RANGESSTANDARD DOSE: 2.0 - 3.0 Includes: PROPHYLAXIS forvenous thrombosis, systemic embolization; TREATMENT for venous thrombosis and/or pulmonary embolus.HIGH RISK: Target INR is 2.5-3.5 for patients with mechanical heart valves.BODY FLUID CELL COUNT WITH [id number] 19:30:00 Test Item Value Reference Range Comments APPEARANCE FLUID (BEAKER) (test pbws=163) Slightly Hazy Clear COLOR FLUID (BEAKER) (test bpww=756) Yellow Colorless, Straw RBC FLUID (BEAKER) (test zcib=362) 100 /cu mm <=1 ADJUSTED WBC FLUID (BEAKER) (test umvi=2451) 36 /cu mm <=5 LINING CELLS (BEAKER) (test bdvc=9507) 4 /cu mm <=1 NEUTROPHILS FLUID (BEAKER) (test jpsx=8188) 0 % LYMPHS FLUID (BEAKER) (test itpk=822) 20 % MONO/MACROPHAGE FLUID (BEAKER) (test 80 % ggap=886) EOSINOPHILS FLUID (BEAKER) (test hnnx=049) 0 % BASO FLUID (BEAKER) (test gtqg=242) 0 % CONTAINER BODY FLUID (BEAKER) (test EDTA Tube cnuu=5769) U/S, [id number] 16:21:00Reason for exam:->ascitesShould this be performed at the bedside?->NoFINAL REPORT PROCEDURE: Ultrasound-guided paracentesis. INDICATION: 52-year-old man with ascites. DESCRIPTION: After obtaining informed written consent, ultrasound scan of the abdomen identified ascites in the right lower quadrant. The overlying skin was prepped and draped in the usual, sterile fashion and local 1% lidocaine anesthesia was administered. A 5 [place] catheter was advanced into the peritoneal cavity and 13,200 cc of cloudy yellow fluid was removed. The catheter was removed without immediate complication. Samples were sent for analysis. IMPRESSION:Uncomplicated ultrasound-guided paracentesis with 13,200 cc fluid removed. Signed: Candice Mckeon MDReport Verified Date/Time: 2016 16:21:22 Reading Location: [place] [id number] Ultrasound Reading Room [facility] METABOLIC [id number] 11:07:00 Test Item Value Reference Range Comments SODIUM (BEAKER) (test 127 meq/L 136-145 kqib=078) POTASSIUM (BEAKER) (test 4.1 meq/L 3.5-5.1 ljrr=328) CHLORIDE (BEAKER) (test 101 meq/L 98-107 kxsg=797) CO2 (BEAKER) (test 23 meq/L 22-29 chuj=719) BLOOD UREA NITROGEN 17 mg/dL 7-21 (BEAKER) (test myex=648) CREATININE (BEAKER) (test 1.06 mg/dL 0.57-1.25 gjpf=623) GLUCOSE RANDOM (BEAKER) 104 mg/dL 70-105 (test amon=101) CALCIUM (BEAKER) (test 8.9 mg/dL 8.4-10.2 hphr=610) EGFR (BEAKER) (test 73 mL/min/1.73 sq m ESTIMATED GFR IS NOT rzay=0824) ACCURATE CREATININE CLEARANCE IN PREDICTING GLOMERULAR FILTRATION RATE. ESTIMATED GFR IS NOT APPLICABLE FOR DIALYSIS PATIENTS. Specimen markedly ictericHEPATIC FUNCTION [id number] 11:07:00 Test Item Value Reference Range Comments TOTAL PROTEIN (BEAKER) (test nggo=803) 5.4 gm/dL 6.0-8.3 ALBUMIN (BEAKER) (test rvax=7041) 2.8 g/dL 3.5-5.0 BILIRUBIN TOTAL (BEAKER) (test uaqd=583) 12.7 mg/dL 0.2-1.2 BILIRUBIN DIRECT (BEAKER) (test vlet=831) 7.8 mg/dL 0.1-0.5 ALKALINE PHOSPHATASE (BEAKER) (test quzu=690) 90 U/L 40-150 AST (SGOT) (BEAKER) (test ymyl=794) 22 U/L 5-34 ALT (SGPT) (BEAKER) (test ctvk=031) 11 U/L 6-55 Specimen markedly ictericPT/[id number] 11:02:00 Test Item Value Reference Range Comments PROTIME (BEAKER) (test uiso=045) 23.4 seconds 11.7-14.7 INR (BEAKER) (test slxq=899) 2.1 <=5.9 PARTIAL THROMBOPLASTIN TIME (BEAKER) (test 48.7 seconds 22.5-36.0 kcfi=472) RECOMMENDED COUMADIN/WARFARIN INR THERAPY RANGESSTANDARD DOSE: 2.0 - 3.0 Includes: PROPHYLAXIS forvenous thrombosis, systemic embolization; TREATMENT for venous thrombosis and/or pulmonary embolus.HIGH RISK: Target INR is 2.5-3.5 for patients with mechanical heart valves.PROTHROMBIN TIME/[id number] 11:01: 00 Test Item Value Reference Range Comments PROTIME (BEAKER) (test ftfn=632) 23.4 seconds 11.7-14.7 INR (BEAKER) (test zueq=521) 2.1 <=5.9 RECOMMENDED COUMADIN/WARFARIN INR THERAPY RANGESSTANDARD DOSE: 2.0 - 3.0 Includes: PROPHYLAXIS forvenous thrombosis, systemic embolization; TREATMENT for venous thrombosis and/or pulmonary embolus.HIGH RISK: Target INR is 2.5-3.5 for patients with mechanical heart valves.CBC W/PLT COUNT & AUTO [id number] 10:56:00 Test Item Value Reference Range Comments WHITE BLOOD CELL COUNT (BEAKER) (test whgp=364) 4.4 K/ L 3.5-10.5 RED BLOOD CELL COUNT (BEAKER) (test irbq=629) 2.48 M/ L 4.63-6.08 HEMOGLOBIN (BEAKER) (test ngfi=550) 7.8 GM/DL 13.7-17.5 HEMATOCRIT (BEAKER) (test gxxe=317) 22.7 % 40.1-51.0 MEAN CORPUSCULAR VOLUME (BEAKER) (test whtu=492) 91.5 fL 79.0-92.2 MEAN CORPUSCULAR HEMOGLOBIN (BEAKER) (test 31.5 pg 25.7-32.2 yent=596) MEAN CORPUSCULAR HEMOGLOBIN CONC (BEAKER) (test 34.4 GM/DL 32.3-36.5 dzmc=928) RED CELL DISTRIBUTION WIDTH (BEAKER) (test 18.6 % 11.6-14.4 pyij=975) PLATELET COUNT (BEAKER) (test aogv=844) 60 K/CU MM 150-450 MEAN PLATELET VOLUME (BEAKER) (test vwht=448) 8.8 fL 9.4-12.4 NUCLEATED RED BLOOD CELLS (BEAKER) (test 0 /100 WBC 0-0 zatt=963) NEUTROPHILS RELATIVE PERCENT (BEAKER) (test 61 % dpzq=872) LYMPHOCYTES RELATIVE PERCENT (BEAKER) (test 9 % iwgb=465) MONOCYTES RELATIVE PERCENT (BEAKER) (test 21 % lujm=374) EOSINOPHILS RELATIVE PERCENT (BEAKER) (test 8 % lauw=035) BASOPHILS RELATIVE PERCENT (BEAKER) (test 1 % isem=084) NEUTROPHILS ABSOLUTE COUNT (BEAKER) (test 2.68 K/ L 1.78-5.38 abrt=826) LYMPHOCYTES ABSOLUTE COUNT (BEAKER) (test 0.38 K/ L 1.32-3.57 vzpp=100) MONOCYTES ABSOLUTE COUNT (BEAKER) (test yzay=859) 0.94 K/ L 0.30-0.82 EOSINOPHILS ABSOLUTE COUNT (BEAKER) (test 0.33 K/ L 0.04-0.54 pqmb=804) BASOPHILS ABSOLUTE COUNT (BEAKER) (test fgjb=952) 0.02 K/ L 0.01-0.08 IMMATURE GRANULOCYTES-RELATIVE PERCENT (BEAKER) 1 % 0-1 (test iwtl=6620) URINALYSIS W/ [id number] 06:18:00 Test Item Value Reference Range Comments COLOR (BEAKER) (test qiih=668) Dark Yellow CLARITY (BEAKER) (test cwfr=865) Clear SPECIFIC GRAVITY UA (BEAKER) (test zgkz=919) 1.008 1.001-1.035 PH UA (BEAKER) (test xfwo=515) 6.0 5.0-8.0 PROTEIN UA (BEAKER) (test kbdu=960) Negative Negative GLUCOSE UA (BEAKER) (test kila=440) Negative Negative KETONES UA (BEAKER) (test oqla=919) Negative Negative BILIRUBIN UA (BEAKER) (test aorb=369) Positive Negative BLOOD UA (BEAKER) (test ebje=251) Moderate Negative NITRITE UA (BEAKER) (test mdhx=919) Negative Negative LEUKOCYTE ESTERASE UA (BEAKER) (test fytu=411) Negative Negative UROBILINOGEN UA (BEAKER) (test bdif=123) 0.2 mg/dL 0.2-1.0 RBC UA (BEAKER) (test nzti=726) 80 /HPF WBC UA (BEAKER) (test fmrv=290) 10 /HPF HYALINE CASTS (BEAKER) (test jisj=535) 5 /LPF AMORPHOUS CRYSTALS (BEAKER) (test njxp=8169) Rare SOURCE(BEAKER) (test btwd=1598) CBC W/PLT COUNT & AUTO [id number] 00:00:00 Test Item Value Reference Range Comments WHITE BLOOD CELL COUNT (BEAKER) (test fvnw=682) 3.7 K/ L 3.5-10.5 RED BLOOD CELL COUNT (BEAKER) (test vycn=030) 2.20 M/ L 4.63-6.08 HEMOGLOBIN (BEAKER) (test yniu=955) 7.0 GM/DL 13.7-17.5 HEMATOCRIT (BEAKER) (test qdny=300) 20.2 % 40.1-51.0 MEAN CORPUSCULAR VOLUME (BEAKER) (test yysx=258) 91.8 fL 79.0-92.2 MEAN CORPUSCULAR HEMOGLOBIN (BEAKER) (test 31.8 pg 25.7-32.2 fwmb=626) MEAN CORPUSCULAR HEMOGLOBIN CONC (BEAKER) (test 34.7 GM/DL 32.3-36.5 lbtq=789) RED CELL DISTRIBUTION WIDTH (BEAKER) (test 19.3 % 11.6-14.4 fsjg=861) PLATELET COUNT (BEAKER) (test qawz=283) 63 K/CU MM 150-450 MEAN PLATELET VOLUME (BEAKER) (test mdnc=462) 9.1 fL 9.4-12.4 NUCLEATED RED BLOOD CELLS (BEAKER) (test 0 /100 WBC 0-0 ntro=969) NEUTROPHILS RELATIVE PERCENT (BEAKER) (test 62 % xqmu=003) LYMPHOCYTES RELATIVE PERCENT (BEAKER) (test 11 % wkjl=669) MONOCYTES RELATIVE PERCENT (BEAKER) (test 19 % dexp=775) EOSINOPHILS RELATIVE PERCENT (BEAKER) (test 7 % gesq=934) BASOPHILS RELATIVE PERCENT (BEAKER) (test 1 % rtud=357) NEUTROPHILS ABSOLUTE COUNT (BEAKER) (test 2.29 K/ L 1.78-5.38 bhnd=851) LYMPHOCYTES ABSOLUTE COUNT (BEAKER) (test 0.39 K/ L 1.32-3.57 gtoa=930) MONOCYTES ABSOLUTE COUNT (BEAKER) (test hhyr=740) 0.71 K/ L 0.30-0.82 EOSINOPHILS ABSOLUTE COUNT (BEAKER) (test 0.27 K/ L 0.04-0.54 ioap=652) BASOPHILS ABSOLUTE COUNT (BEAKER) (test oeoo=622) 0.02 K/ L 0.01-0.08 IMMATURE GRANULOCYTES-RELATIVE PERCENT (BEAKER) 1 % 0-1 (test rgpn=9755) PROTHROMBIN [id number] 22:52:00 Test Item Value Reference Range Comments PROTIME (BEAKER) (test iqgx=648) 25.6 seconds 11.7-14.7 INR (BEAKER) (test ekiz=243) 2.3 <=5.9 RECOMMENDED COUMADIN/WARFARIN INR THERAPY RANGESSTANDARD DOSE: 2.0 - 3.0 Includes: PROPHYLAXIS forvenous thrombosis, systemic embolization; TREATMENT for venous thrombosis and/or pulmonary embolus.HIGH RISK: Target INR is 2.5-3.5 for patients with mechanical heart valves.[id number] 22:52:00 Test Item Value Reference Range Comments MAGNESIUM (BEAKER) (test qcvh=785) 1.3 mg/dL 1.6-2.6 BASIC METABOLIC [id number] 22:52:00 Test Item Value Reference Range Comments SODIUM (BEAKER) (test 124 meq/L 136-145 evje=909) POTASSIUM (BEAKER) (test 4.1 meq/L 3.5-5.1 ztld=401) CHLORIDE (BEAKER) (test 99 meq/L 98-107 rbmi=680) CO2 (BEAKER) (test 18 meq/L 22-29 qdiw=949) BLOOD UREA NITROGEN 16 mg/dL 7-21 (BEAKER) (test ttyk=094) CREATININE (BEAKER) (test 0.97 mg/dL 0.57-1.25 uyjm=183) GLUCOSE RANDOM (BEAKER) 99 mg/dL 70-105 (test bsuu=236) CALCIUM (BEAKER) (test 8.7 mg/dL 8.4-10.2 wnpa=788) EGFR (BEAKER) (test 81 mL/min/1.73 sq m ESTIMATED GFR IS NOT yiam=5215) ACCURATE CREATININE CLEARANCE IN PREDICTING GLOMERULAR FILTRATION RATE. ESTIMATED GFR IS NOT APPLICABLE FOR DIALYSIS PATIENTS. Specimen markedly ictericHEPATIC FUNCTION [id number] 22:52:00 Test Item Value Reference Range Comments TOTAL PROTEIN (BEAKER) (test nrtu=941) 5.3 gm/dL 6.0-8.3 ALBUMIN (BEAKER) (test uyop=6830) 2.8 g/dL 3.5-5.0 BILIRUBIN TOTAL (BEAKER) (test xrxb=967) 12.7 mg/dL 0.2-1.2 BILIRUBIN DIRECT (BEAKER) (test iohf=243) 7.6 mg/dL 0.1-0.5 ALKALINE PHOSPHATASE (BEAKER) (test wtxj=287) 93 U/L 40-150 AST (SGOT) (BEAKER) (test gqgh=467) 21 U/L 5-34 ALT (SGPT) (BEAKER) (test rumj=657) 9 U/L 6-55 Specimen markedly ictericALPHA FETOPROTEIN (AFP), TUMOR [id number] 16:39: 00 Test Item Value Reference Range Comments ALPHA-FETOPROTEIN (BEAKER) (test hqfi=6657) 2.5 ng/mL <10.0 BASIC METABOLIC [id number] 15:53:00 Test Item Value Reference Range Comments SODIUM (BEAKER) (test 126 meq/L 136-145 qzmt=677) POTASSIUM (BEAKER) (test 5.1 meq/L 3.5-5.1 zxdf=406) CHLORIDE (BEAKER) (test 101 meq/L 98-107 lorw=976) CO2 (BEAKER) (test 19 meq/L 22-29 frex=907) BLOOD UREA NITROGEN 14 mg/dL 7-21 (BEAKER) (test cnro=471) CREATININE (BEAKER) (test 1.01 mg/dL 0.57-1.25 tfdp=729) GLUCOSE RANDOM (BEAKER) 104 mg/dL 70-105 (test uujs=207) CALCIUM (BEAKER) (test 9.0 mg/dL 8.4-10.2 zqcq=019) EGFR (BEAKER) (test 78 mL/min/1.73 sq m ESTIMATED GFR IS NOT whhm=4840) ACCURATE CREATININE CLEARANCE IN PREDICTING GLOMERULAR FILTRATION RATE. ESTIMATED GFR IS NOT APPLICABLE FOR DIALYSIS PATIENTS. Specimen moderately ictericHEPATIC FUNCTION [id number] 15:53:00 Test Item Value Reference Range Comments TOTAL PROTEIN (BEAKER) (test mjdx=713) 6.1 gm/dL 6.0-8.3 ALBUMIN (BEAKER) (test spzz=5087) 2.6 g/dL 3.5-5.0 BILIRUBIN TOTAL (BEAKER) (test ilrp=903) 10.4 mg/dL 0.2-1.2 BILIRUBIN DIRECT (BEAKER) (test magm=179) 7.5 mg/dL 0.1-0.5 ALKALINE PHOSPHATASE (BEAKER) (test xoxy=119) 124 U/L 40-150 AST (SGOT) (BEAKER) (test raqb=308) 29 U/L 5-34 ALT (SGPT) (BEAKER) (test psqo=658) 12 U/L 6-55 Specimen moderately ictericGAMMA GLUTAMYL TRANSFERASE (GGT)[id number] 15:53:00 Test Item Value Reference Range Comments GAMMA GLUTAMYL TRANSFERASE (BEAKER) (test fgvg=959) 17 U/L 9-64 Specimen moderately ictericPROTHROMBIN [id number] 15:40:00 Test Item Value Reference Range Comments PROTIME (BEAKER) (test iara=826) 22.6 seconds 11.7-14.7 INR (BEAKER) (test hvtu=918) 2.0 <=5.9 RECOMMENDED COUMADIN/WARFARIN INR THERAPY RANGESSTANDARD DOSE: 2.0 - 3.0 Includes: PROPHYLAXIS forvenous thrombosis, systemic embolization; TREATMENT for venous thrombosis and/or pulmonary embolus.HIGH RISK: Target INR is 2.5-3.5 for patients with mechanical heart valves.CBC W/PLT COUNT & AUTO [id number] 15:38:00 Test Item Value Reference Range Comments WHITE BLOOD CELL COUNT (BEAKER) (test sqwu=258) 7.3 K/ L 3.5-10.5 RED BLOOD CELL COUNT (BEAKER) (test zcqj=723) 2.78 M/ L 4.63-6.08 HEMOGLOBIN (BEAKER) (test zlhw=465) 9.1 GM/DL 13.7-17.5 HEMATOCRIT (BEAKER) (test egsw=452) 27.3 % 40.1-51.0 MEAN CORPUSCULAR VOLUME (BEAKER) (test dgvb=692) 98.2 fL 79.0-92.2 MEAN CORPUSCULAR HEMOGLOBIN (BEAKER) (test 32.7 pg 25.7-32.2 fzcr=432) MEAN CORPUSCULAR HEMOGLOBIN CONC (BEAKER) (test 33.3 GM/DL 32.3-36.5 cguc=008) RED CELL DISTRIBUTION WIDTH (BEAKER) (test 16.4 % 11.6-14.4 atdo=686) PLATELET COUNT (BEAKER) (test cfac=750) 71 K/CU MM 150-450 MEAN PLATELET VOLUME (BEAKER) (test ssmc=810) 9.1 fL 9.4-12.4 NUCLEATED RED BLOOD CELLS (BEAKER) (test 0 /100 WBC 0-0 exxu=310) NEUTROPHILS RELATIVE PERCENT (BEAKER) (test 71 % jexk=634) LYMPHOCYTES RELATIVE PERCENT (BEAKER) (test 8 % fecu=809) MONOCYTES RELATIVE PERCENT (BEAKER) (test 15 % qcpo=348) EOSINOPHILS RELATIVE PERCENT (BEAKER) (test 5 % obbl=605) BASOPHILS RELATIVE PERCENT (BEAKER) (test 0 % iolc=643) NEUTROPHILS ABSOLUTE COUNT (BEAKER) (test 5.13 K/ L 1.78-5.38 qzdi=096) LYMPHOCYTES ABSOLUTE COUNT (BEAKER) (test 0.59 K/ L 1.32-3.57 swqw=300) MONOCYTES ABSOLUTE COUNT (BEAKER) (test fpuu=112) 1.06 K/ L 0.30-0.82 EOSINOPHILS ABSOLUTE COUNT (BEAKER) (test 0.33 K/ L 0.04-0.54 fomh=412) BASOPHILS ABSOLUTE COUNT (BEAKER) (test cphj=413) 0.03 K/ L 0.01-0.08 IMMATURE GRANULOCYTES-RELATIVE PERCENT (BEAKER) 2 % 0-1 (test occn=3741) FUNGUS CULTURE + [id number] 07:22:00 Test Item Value Reference Range Comments CULTURE (BEAKER) (test No fungus isolated in 28 days llyl=7381) FUNGUS SMEAR (BEAKER) (test No fungi seen tgws=4806) HISTOPLASMA ANTIGEN, [id number] 08:01:00 Test Item Value Reference Range Comments SCAN RESULT (test [id number]) TISSUE [id number] 10:58:00 Test Item Value Reference Range Comments LAB AP CPT CODE (BEAKER) (test curi=5935) [id number] BLOOD [id number] 16:15:00 Test Item Value Reference Range Comments CULTURE (BEAKER) (test mcax=9729) No growth in 5 days BLOOD [id number] 16:15:00 Test Item Value Reference Range Comments CULTURE (BEAKER) (test gmrg=5777) No growth in 5 days [id number] 06:54:00 Test Item Value Reference Range Comments PHOSPHORUS (BEAKER) (test urit=906) 3.3 mg/dL 2.3-4.7 [id number] 06:54:00 Test Item Value Reference Range Comments MAGNESIUM (BEAKER) (test fnds=118) 1.2 mg/dL 1.6-2.6 BASIC METABOLIC [id number] 06:54:00 Test Item Value Reference Range Comments SODIUM (BEAKER) (test 133 meq/L 136-145 tuft=178) POTASSIUM (BEAKER) (test 3.6 meq/L 3.5-5.1 byly=524) CHLORIDE (BEAKER) (test 108 meq/L 98-107 galk=065) CO2 (BEAKER) (test 17 meq/L 22-29 xwsm=421) BLOOD UREA NITROGEN 13 mg/dL 7-21 (BEAKER) (test yqrn=512) CREATININE (BEAKER) (test 1.16 mg/dL 0.57-1.25 ethr=760) GLUCOSE RANDOM (BEAKER) 82 mg/dL 70-105 (test vjgg=880) CALCIUM (BEAKER) (test 8.0 mg/dL 8.4-10.2 rojh=553) EGFR (BEAKER) (test 66 mL/min/1.73 sq m ESTIMATED GFR IS NOT wyuc=2892) ACCURATE CREATININE CLEARANCE IN PREDICTING GLOMERULAR FILTRATION RATE. ESTIMATED GFR IS NOT APPLICABLE FOR DIALYSIS PATIENTS. Specimen moderately ictericHEPATIC FUNCTION [id number] 06:54:00 Test Item Value Reference Range Comments TOTAL PROTEIN (BEAKER) (test hdmv=283) 5.7 gm/dL 6.0-8.3 ALBUMIN (BEAKER) (test irqu=2834) 3.1 g/dL 3.5-5.0 BILIRUBIN TOTAL (BEAKER) (test wgkh=220) 5.2 mg/dL 0.2-1.2 BILIRUBIN DIRECT (BEAKER) (test xugt=574) 2.6 mg/dL 0.1-0.5 ALKALINE PHOSPHATASE (BEAKER) (test cjgv=786) 55 U/L 40-150 AST (SGOT) (BEAKER) (test ucwd=176) 32 U/L 5-34 ALT (SGPT) (BEAKER) (test cidg=761) 9 U/L 6-55 Specimen moderately ictericCALCIUM, [id number] 06:30:00 Test Item Value Reference Range Comments CALCIUM IONIZED (BEAKER) (test ixjc=171) 1.00 mmol/L 1.12-1.27 PH, BLOOD (BEAKER) (test twkq=8927) 7.52 CBC W/PLT COUNT & AUTO [id number] 06:17:00 Test Item Value Reference Range Comments WHITE BLOOD CELL COUNT (BEAKER) (test dzqi=136) 4.7 K/ L 4.0-10.0 RED BLOOD CELL COUNT (BEAKER) (test rhql=480) 2.05 M/ L 4.20-5.80 HEMOGLOBIN (BEAKER) (test shug=942) 7.1 GM/DL 13.0-16.8 HEMATOCRIT (BEAKER) (test wicl=477) 21.1 % 40.0-50.0 MEAN CORPUSCULAR VOLUME (BEAKER) (test tfnk=940) 103.0 fL 82.0-98.0 MEAN CORPUSCULAR HEMOGLOBIN (BEAKER) (test 34.8 pg 27.0-33.0 texq=675) MEAN CORPUSCULAR HEMOGLOBIN CONC (BEAKER) (test 33.8 GM/DL 32.0-36.0 iggg=664) RED CELL DISTRIBUTION WIDTH (BEAKER) (test 13.9 % 10.3-14.2 ynia=860) PLATELET COUNT (BEAKER) (test gkph=403) 71 K/CU MM 150-430 MEAN PLATELET VOLUME (BEAKER) (test nsak=848) 6.6 fL 6.5-10.5 NUCLEATED RED BLOOD CELLS (BEAKER) (test 0 /100 WBC 0-0 vmfo=569) NEUTROPHILS RELATIVE PERCENT (BEAKER) (test 68 % qbbn=871) LYMPHOCYTES RELATIVE PERCENT (BEAKER) (test 16 % kvbq=688) MONOCYTES RELATIVE PERCENT (BEAKER) (test 12 % aynn=003) EOSINOPHILS RELATIVE PERCENT (BEAKER) (test 4 % xatd=903) BASOPHILS RELATIVE PERCENT (BEAKER) (test 1 % tukc=725) NEUTROPHILS ABSOLUTE COUNT (BEAKER) (test 3.21 K/ L 1.80-8.00 vvot=311) LYMPHOCYTES ABSOLUTE COUNT (BEAKER) (test 0.75 K/ L 1.48-4.50 xojb=691) MONOCYTES ABSOLUTE COUNT (BEAKER) (test zndh=945) 0.57 K/ L 0.00-1.30 EOSINOPHILS ABSOLUTE COUNT (BEAKER) (test 0.19 K/ L 0.00-0.50 tjzi=450) BASOPHILS ABSOLUTE COUNT (BEAKER) (test fbxn=787) 0.03 K/ L 0.00-0.20 0.00PROTHROMBIN [id number] 05:56:00 Test Item Value Reference Range Comments PROTIME (BEAKER) (test bnji=804) 26.4 seconds 11.7-14.7 INR (BEAKER) (test dios=041) 2.4 <=5.9 RECOMMENDED COUMADIN/WARFARIN INR THERAPY RANGESSTANDARD DOSE: 2.0 - 3.0 Includes: PROPHYLAXIS forvenous thrombosis, systemic embolization; TREATMENT for venous thrombosis and/or pulmonary embolus.HIGH RISK: Target INR is 2.5-3.5 for patients with mechanical heart valves.BASIC METABOLIC [id number] 04:44: 00 Test Item Value Reference Range Comments SODIUM (BEAKER) (test 134 meq/L 136-145 fedi=363) POTASSIUM (BEAKER) (test 3.6 meq/L 3.5-5.1 otwl=551) CHLORIDE (BEAKER) (test 108 meq/L 98-107 jtif=630) CO2 (BEAKER) (test 19 meq/L 22-29 zott=965) BLOOD UREA NITROGEN 12 mg/dL 7-21 (BEAKER) (test hdot=903) CREATININE (BEAKER) (test 1.32 mg/dL 0.57-1.25 koss=979) GLUCOSE RANDOM (BEAKER) 82 mg/dL 70-105 (test smdq=297) CALCIUM (BEAKER) (test 7.9 mg/dL 8.4-10.2 lfcg=968) EGFR (BEAKER) (test 57 mL/min/1.73 sq m ESTIMATED GFR IS NOT qfme=3593) ACCURATE CREATININE CLEARANCE IN PREDICTING GLOMERULAR FILTRATION RATE. ESTIMATED GFR IS NOT APPLICABLE FOR DIALYSIS PATIENTS. Specimen moderately ictericHEPATIC FUNCTION [id number] 04:42:00 Test Item Value Reference Range Comments TOTAL PROTEIN (BEAKER) (test sqqc=539) 5.8 gm/dL 6.0-8.3 ALBUMIN (BEAKER) (test gkoq=4252) 3.1 g/dL 3.5-5.0 BILIRUBIN TOTAL (BEAKER) (test rkaf=835) 5.1 mg/dL 0.2-1.2 BILIRUBIN DIRECT (BEAKER) (test esgz=367) 2.7 mg/dL 0.1-0.5 ALKALINE PHOSPHATASE (BEAKER) (test vmxc=697) 51 U/L 40-150 AST (SGOT) (BEAKER) (test yhvw=152) 27 U/L 5-34 ALT (SGPT) (BEAKER) (test izos=258) 7 U/L 6-55 Specimen moderately ictericCBC W/PLT COUNT & AUTO [id number] 04: 35:00 Test Item Value Reference Range Comments WHITE BLOOD CELL COUNT (BEAKER) (test udlm=047) 4.6 K/ L 4.0-10.0 RED BLOOD CELL COUNT (BEAKER) (test eeqf=938) 2.06 M/ L 4.20-5.80 HEMOGLOBIN (BEAKER) (test fgjp=622) 7.2 GM/DL 13.0-16.8 HEMATOCRIT (BEAKER) (test glyl=853) 21.5 % 40.0-50.0 MEAN CORPUSCULAR VOLUME (BEAKER) (test flvg=039) 104.0 fL 82.0-98.0 MEAN CORPUSCULAR HEMOGLOBIN (BEAKER) (test 35.0 pg 27.0-33.0 ikif=036) MEAN CORPUSCULAR HEMOGLOBIN CONC (BEAKER) (test 33.6 GM/DL 32.0-36.0 gbkj=411) RED CELL DISTRIBUTION WIDTH (BEAKER) (test 13.4 % 10.3-14.2 rmyx=050) PLATELET COUNT (BEAKER) (test jkwp=527) 76 K/CU MM 150-430 MEAN PLATELET VOLUME (BEAKER) (test tklf=938) 6.5 fL 6.5-10.5 NUCLEATED RED BLOOD CELLS (BEAKER) (test 0 /100 WBC 0-0 cftk=170) NEUTROPHILS RELATIVE PERCENT (BEAKER) (test 64 % ysdx=899) LYMPHOCYTES RELATIVE PERCENT (BEAKER) (test 16 % xuva=416) MONOCYTES RELATIVE PERCENT (BEAKER) (test 16 % eqbc=662) EOSINOPHILS RELATIVE PERCENT (BEAKER) (test 4 % zlkg=418) BASOPHILS RELATIVE PERCENT (BEAKER) (test 1 % qnij=967) NEUTROPHILS ABSOLUTE COUNT (BEAKER) (test 2.89 K/ L 1.80-8.00 luyr=597) LYMPHOCYTES ABSOLUTE COUNT (BEAKER) (test 0.72 K/ L 1.48-4.50 uibq=199) MONOCYTES ABSOLUTE COUNT (BEAKER) (test cjlh=162) 0.71 K/ L 0.00-1.30 EOSINOPHILS ABSOLUTE COUNT (BEAKER) (test 0.20 K/ L 0.00-0.50 scuy=016) BASOPHILS ABSOLUTE COUNT (BEAKER) (test ceht=030) 0.03 K/ L 0.00-0.20 0.00PROTHROMBIN [id number] 04:33:00 Test Item Value Reference Range Comments PROTIME (BEAKER) (test tygl=317) 30.2 seconds 11.7-14.7 INR (BEAKER) (test zfoq=204) 2.9 <=5.9 RECOMMENDED COUMADIN/WARFARIN INR THERAPY RANGESSTANDARD DOSE: 2.0 - 3.0 Includes: PROPHYLAXIS forvenous thrombosis, systemic embolization; TREATMENT for venous thrombosis and/or pulmonary embolus.HIGH RISK: Target INR is 2.5-3.5 for patients with mechanical heart valves.VANCOMYCIN LEVEL, [id number] 17: 04:00 Test Item Value Reference Range Comments VANCOMYCIN TROUGH (BEAKER) (test xfpr=377) 12.2 ug/mL 10.0-20.0 URINE [id number] 14:25:00 Test Item Value Reference Range Comments CULTURE (BEAKER) (test ycvr=2511) No growth TSH/FREE T4 IF [id number] 14:22:00 Test Item Value Reference Range Comments THYROID STIMULATING HORMONE (BEAKER) (test 3.53 uIU/mL 0.35-4.94 rhgw=894) URINE [id number] 11:43:00 Test Item Value Reference Range Comments CULTURE (BEAKER) (test czwf=5977) No growth CBC W/PLT COUNT & AUTO [id number] 07:55:00 Test Item Value Reference Range Comments WHITE BLOOD CELL COUNT (BEAKER) (test lypg=330) 4.5 K/ L 4.0-10.0 RED BLOOD CELL COUNT (BEAKER) (test acqh=319) 2.06 M/ L 4.20-5.80 HEMOGLOBIN (BEAKER) (test ofur=235) 7.1 GM/DL 13.0-16.8 HEMATOCRIT (BEAKER) (test wyvk=021) 21.5 % 40.0-50.0 MEAN CORPUSCULAR VOLUME (BEAKER) (test tgal=287) 104.0 fL 82.0-98.0 MEAN CORPUSCULAR HEMOGLOBIN (BEAKER) (test 34.5 pg 27.0-33.0 bnoc=306) MEAN CORPUSCULAR HEMOGLOBIN CONC (BEAKER) (test 33.1 GM/DL 32.0-36.0 idjl=692) RED CELL DISTRIBUTION WIDTH (BEAKER) (test 13.4 % 10.3-14.2 crvc=427) PLATELET COUNT (BEAKER) (test yngm=376) 79 K/CU MM 150-430 MEAN PLATELET VOLUME (BEAKER) (test qqlu=797) 6.8 fL 6.5-10.5 NUCLEATED RED BLOOD CELLS (BEAKER) (test 0 /100 WBC 0-0 emvt=427) NEUTROPHILS RELATIVE PERCENT (BEAKER) (test 64 % btaw=150) LYMPHOCYTES RELATIVE PERCENT (BEAKER) (test 16 % gpop=725) MONOCYTES RELATIVE PERCENT (BEAKER) (test 15 % btdz=075) EOSINOPHILS RELATIVE PERCENT (BEAKER) (test 5 % ztil=712) BASOPHILS RELATIVE PERCENT (BEAKER) (test 0 % qhjo=664) NEUTROPHILS ABSOLUTE COUNT (BEAKER) (test 2.88 K/ L 1.80-8.00 zibn=663) LYMPHOCYTES ABSOLUTE COUNT (BEAKER) (test 0.73 K/ L 1.48-4.50 kcwv=453) MONOCYTES ABSOLUTE COUNT (BEAKER) (test vnpc=329) 0.68 K/ L 0.00-1.30 EOSINOPHILS ABSOLUTE COUNT (BEAKER) (test 0.23 K/ L 0.00-0.50 cmwt=890) BASOPHILS ABSOLUTE COUNT (BEAKER) (test mshz=520) 0.02 K/ L 0.00-0.20 0.00BASIC METABOLIC [id number] 05:58:00 Test Item Value Reference Range Comments SODIUM (BEAKER) (test 137 meq/L 136-145 ipab=904) POTASSIUM (BEAKER) (test 3.7 meq/L 3.5-5.1 wvdp=094) CHLORIDE (BEAKER) (test 110 meq/L 98-107 aeyt=372) CO2 (BEAKER) (test 19 meq/L 22-29 tynr=504) BLOOD UREA NITROGEN 12 mg/dL 7-21 (BEAKER) (test kxxe=294) CREATININE (BEAKER) (test 1.29 mg/dL 0.57-1.25 cqmr=907) GLUCOSE RANDOM (BEAKER) 80 mg/dL 70-105 (test dzhb=135) CALCIUM (BEAKER) (test 8.1 mg/dL 8.4-10.2 snvc=616) EGFR (BEAKER) (test 59 mL/min/1.73 sq m ESTIMATED GFR IS NOT opsd=8172) ACCURATE CREATININE CLEARANCE IN PREDICTING GLOMERULAR FILTRATION RATE. ESTIMATED GFR IS NOT APPLICABLE FOR DIALYSIS PATIENTS. Specimen moderately ictericHEPATIC FUNCTION [id number] 05:58:00 Test Item Value Reference Range Comments TOTAL PROTEIN (BEAKER) (test nefy=057) 5.9 gm/dL 6.0-8.3 ALBUMIN (BEAKER) (test uxfr=1441) 3.4 g/dL 3.5-5.0 BILIRUBIN TOTAL (BEAKER) (test ycpa=142) 5.6 mg/dL 0.2-1.2 BILIRUBIN DIRECT (BEAKER) (test vrqc=166) 2.6 mg/dL 0.1-0.5 ALKALINE PHOSPHATASE (BEAKER) (test nhdm=705) 50 U/L 40-150 AST (SGOT) (BEAKER) (test hmjo=548) 30 U/L 5-34 ALT (SGPT) (BEAKER) (test lrgf=855) 9 U/L 6-55 Specimen moderately ictericPROTHROMBIN [id number] 05:31:00 Test Item Value Reference Range Comments PROTIME (BEAKER) (test qvth=541) 29.0 seconds 11.7-14.7 INR (BEAKER) (test cgpe=537) 2.7 <=5.9 RECOMMENDED COUMADIN/WARFARIN INR THERAPY RANGESSTANDARD DOSE: 2.0 - 3.0 Includes: PROPHYLAXIS forvenous thrombosis, systemic embolization; TREATMENT for venous thrombosis and/or pulmonary embolus.HIGH RISK: Target INR is 2.5-3.5 for patients with mechanical heart valves.ANAEROBIC [id number] 05:15:00 Test Item Value Reference Range Comments CULTURE (BEAKER) (test hvfp=6256) No anaerobes isolated BLOOD [id number] 00:00:00 Test Item Value Reference Range Comments CULTURE (BEAKER) (test ylja=0037) No growth in 5 days BLOOD [id number] 00:00:00 Test Item Value Reference Range Comments CULTURE (BEAKER) (test hqfj=8485) No growth in 5 days URINALYSIS W/ REFLEX URINE [id number] 08:28:00 Test Item Value Reference Range Comments COLOR (BEAKER) (test xcmf=622) Yellow CLARITY (BEAKER) (test zgpl=632) Clear SPECIFIC GRAVITY UA (BEAKER) (test jmof=062) 1.006 1.001-1.035 PH UA (BEAKER) (test rmsp=421) 6.5 5.0-8.0 PROTEIN UA (BEAKER) (test lamq=827) Negative Negative GLUCOSE UA (BEAKER) (test dgsy=331) Negative Negative KETONES UA (BEAKER) (test saro=798) Negative Negative BILIRUBIN UA (BEAKER) (test qdbx=175) Negative Negative BLOOD UA (BEAKER) (test xvwm=697) Negative Negative NITRITE UA (BEAKER) (test qyfa=405) Negative Negative LEUKOCYTE ESTERASE UA (BEAKER) (test scrw=478) Small Negative UROBILINOGEN UA (BEAKER) (test pule=188) 0.2 mg/dL 0.2-1.0 RBC UA (BEAKER) (test cbvg=442) 1 /HPF WBC UA (BEAKER) (test dmus=357) 6 /HPF BACTERIA (BEAKER) (test yzzt=263) Rare SOURCE(BEAKER) (test zwhl=8572) CBC W/PLT COUNT & AUTO [id number] 07:21:00 Test Item Value Reference Range Comments WHITE BLOOD CELL COUNT (BEAKER) (test fygc=359) 5.9 K/ L 4.0-10.0 RED BLOOD CELL COUNT (BEAKER) (test tiqc=599) 2.12 M/ L 4.20-5.80 HEMOGLOBIN (BEAKER) (test nmvy=328) 7.3 GM/DL 13.0-16.8 HEMATOCRIT (BEAKER) (test bijc=606) 22.2 % 40.0-50.0 MEAN CORPUSCULAR VOLUME (BEAKER) (test eyip=265) 105.0 fL 82.0-98.0 MEAN CORPUSCULAR HEMOGLOBIN (BEAKER) (test 34.2 pg 27.0-33.0 wdza=611) MEAN CORPUSCULAR HEMOGLOBIN CONC (BEAKER) (test 32.7 GM/DL 32.0-36.0 ryjp=778) RED CELL DISTRIBUTION WIDTH (BEAKER) (test 13.1 % 10.3-14.2 jlzf=583) PLATELET COUNT (BEAKER) (test oltr=172) 80 K/CU MM 150-430 MEAN PLATELET VOLUME (BEAKER) (test tnep=788) 6.5 fL 6.5-10.5 NUCLEATED RED BLOOD CELLS (BEAKER) (test 0 /100 WBC 0-0 rdcv=047) NEUTROPHILS RELATIVE PERCENT (BEAKER) (test 67 % plrp=162) LYMPHOCYTES RELATIVE PERCENT (BEAKER) (test 14 % ispb=708) MONOCYTES RELATIVE PERCENT (BEAKER) (test 14 % muql=726) EOSINOPHILS RELATIVE PERCENT (BEAKER) (test 4 % ahrv=725) BASOPHILS RELATIVE PERCENT (BEAKER) (test 0 % qoqw=671) NEUTROPHILS ABSOLUTE COUNT (BEAKER) (test 3.97 K/ L 1.80-8.00 vwpn=421) LYMPHOCYTES ABSOLUTE COUNT (BEAKER) (test 0.85 K/ L 1.48-4.50 hpau=595) MONOCYTES ABSOLUTE COUNT (BEAKER) (test ziqq=095) 0.81 K/ L 0.00-1.30 EOSINOPHILS ABSOLUTE COUNT (BEAKER) (test 0.25 K/ L 0.00-0.50 rdgl=750) BASOPHILS ABSOLUTE COUNT (BEAKER) (test tzps=946) 0.03 K/ L 0.00-0.20 [id number] 06:35:00 Test Item Value Reference Range Comments PHOSPHORUS (BEAKER) (test alcp=517) 3.5 mg/dL 2.3-4.7 [id number] 06:35:00 Test Item Value Reference Range Comments MAGNESIUM (BEAKER) (test hjes=562) 1.7 mg/dL 1.6-2.6 BASIC METABOLIC [id number] 06:35:00 Test Item Value Reference Range Comments SODIUM (BEAKER) (test 137 meq/L 136-145 itbz=924) POTASSIUM (BEAKER) (test 4.0 meq/L 3.5-5.1 kmwl=403) CHLORIDE (BEAKER) (test 109 meq/L 98-107 dsex=629) CO2 (BEAKER) (test 20 meq/L 22-29 qgpa=830) BLOOD UREA NITROGEN 13 mg/dL 7-21 (BEAKER) (test whnu=035) CREATININE (BEAKER) (test 1.56 mg/dL 0.57-1.25 mwmb=002) GLUCOSE RANDOM (BEAKER) 85 mg/dL 70-105 (test tfav=240) CALCIUM (BEAKER) (test 8.4 mg/dL 8.4-10.2 ropo=354) EGFR (BEAKER) (test 47 mL/min/1.73 sq m ESTIMATED GFR IS NOT nplt=7078) ACCURATE CREATININE CLEARANCE IN PREDICTING GLOMERULAR FILTRATION RATE. ESTIMATED GFR IS NOT APPLICABLE FOR DIALYSIS PATIENTS. Specimen moderately ictericHEPATIC FUNCTION [id number] 06:35:00 Test Item Value Reference Range Comments TOTAL PROTEIN (BEAKER) (test euzk=264) 6.5 gm/dL 6.0-8.3 ALBUMIN (BEAKER) (test brxm=5557) 3.8 g/dL 3.5-5.0 BILIRUBIN TOTAL (BEAKER) (test oltc=430) 6.1 mg/dL 0.2-1.2 BILIRUBIN DIRECT (BEAKER) (test rgym=199) 2.9 mg/dL 0.1-0.5 ALKALINE PHOSPHATASE (BEAKER) (test gjis=596) 54 U/L 40-150 AST (SGOT) (BEAKER) (test mopx=457) 28 U/L 5-34 ALT (SGPT) (BEAKER) (test lwaf=529) 7 U/L 6-55 Specimen moderately ictericPROTHROMBIN [id number] 06:06:00 Test Item Value Reference Range Comments PROTIME (BEAKER) (test czco=650) 26.1 seconds 11.7-14.7 INR (BEAKER) (test xnzd=762) 2.4 <=5.9 RECOMMENDED COUMADIN/WARFARIN INR THERAPY RANGESSTANDARD DOSE: 2.0 - 3.0 Includes: PROPHYLAXIS forvenous thrombosis, systemic embolization; TREATMENT for venous thrombosis and/or pulmonary embolus.HIGH RISK: Target INR is 2.5-3.5 for patients with mechanical heart valves.CALCIUM, [id number] 06:06:00 Test Item Value Reference Range Comments CALCIUM IONIZED (BEAKER) (test pvdq=551) 1.06 mmol/L 1.12-1.27 PH, BLOOD (BEAKER) (test yfpj=4629) 7.46 SURGICALLY OBTAINED CULTURE + GRAM [id number] 23:51:00 Test Item Value Reference Range Comments CULTURE (BEAKER) (test kxmj=0386) No growth GRAM STAIN RESULT (BEAKER) (test 1+ WBCs kfzi=0762) GRAM STAIN RESULT (BEAKER) (test No organisms seen svew=46616) BODY FLUID CULTURE + GRAM [id number] 23:42:00 Test Item Value Reference Range Comments CULTURE (BEAKER) (test kgja=6357) No growth GRAM STAIN RESULT (BEAKER) (test 1+ WBCs vjob=6771) GRAM STAIN RESULT (BEAKER) (test No organisms seen lvyb=49235) BODY FLUID CELL COUNT WITH [id number] 19:59:00 Test Item Value Reference Range Comments APPEARANCE FLUID (BEAKER) (test tvvd=324) Hazy Clear COLOR FLUID (BEAKER) (test tlwl=193) Yellow Colorless, Straw RBC FLUID (BEAKER) (test ixoc=546) 2435 /cu mm <=1 ADJUSTED WBC FLUID (BEAKER) (test jhoy=3116) 441 /cu mm <=5 LINING CELLS (BEAKER) (test ucsf=9168) 9 /cu mm <=1 NEUTROPHILS FLUID (BEAKER) (test qcgt=5364) 16 % LYMPHS FLUID (BEAKER) (test gezh=850) 10 % MONO/MACROPHAGE FLUID (BEAKER) (test sien=847) 74 % EOSINOPHILS FLUID (BEAKER) (test tizw=003) 0 % BASO FLUID (BEAKER) (test kuwd=486) 0 % CONTAINER BODY FLUID (BEAKER) (test taqc=4994) EDTA Tube [id number] 11:01:00 Test Item Value Reference Range Comments PROCALCITONIN (BEAKER) (test ekxm=5491) 0.25 ng/mL <0.05 SEPSIS RISK (ng/mL)Low: 0.05-0.50Intermediate: 0.51-2.00High: & gt;=2.01CBC W/PLT COUNT & AUTO [id number] 08:40:00 Test Item Value Reference Range Comments WHITE BLOOD CELL COUNT (BEAKER) (test ppkz=849) 6.3 K/ L 4.0-10.0 RED BLOOD CELL COUNT (BEAKER) (test egdr=728) 2.07 M/ L 4.20-5.80 HEMOGLOBIN (BEAKER) (test xvoz=825) 7.1 GM/DL 13.0-16.8 HEMATOCRIT (BEAKER) (test cukz=366) 21.9 % 40.0-50.0 MEAN CORPUSCULAR VOLUME (BEAKER) (test cyjr=955) 106.0 fL 82.0-98.0 MEAN CORPUSCULAR HEMOGLOBIN (BEAKER) (test 34.1 pg 27.0-33.0 lhje=142) MEAN CORPUSCULAR HEMOGLOBIN CONC (BEAKER) (test 32.2 GM/DL 32.0-36.0 iois=852) RED CELL DISTRIBUTION WIDTH (BEAKER) (test 13.1 % 10.3-14.2 gfmi=505) PLATELET COUNT (BEAKER) (test cklk=850) 78 K/CU MM 150-430 MEAN PLATELET VOLUME (BEAKER) (test sftd=918) 6.6 fL 6.5-10.5 NUCLEATED RED BLOOD CELLS (BEAKER) (test 0 /100 WBC 0-0 dxqk=794) NEUTROPHILS RELATIVE PERCENT (BEAKER) (test 73 % dwqd=322) LYMPHOCYTES RELATIVE PERCENT (BEAKER) (test 10 % bkrc=884) MONOCYTES RELATIVE PERCENT (BEAKER) (test 13 % nyen=010) EOSINOPHILS RELATIVE PERCENT (BEAKER) (test 4 % qpwk=014) BASOPHILS RELATIVE PERCENT (BEAKER) (test 0 % qagz=575) NEUTROPHILS ABSOLUTE COUNT (BEAKER) (test 4.60 K/ L 1.80-8.00 janj=648) LYMPHOCYTES ABSOLUTE COUNT (BEAKER) (test 0.64 K/ L 1.48-4.50 hrcg=059) MONOCYTES ABSOLUTE COUNT (BEAKER) (test sopt=534) 0.81 K/ L 0.00-1.30 EOSINOPHILS ABSOLUTE COUNT (BEAKER) (test 0.23 K/ L 0.00-0.50 ofye=668) BASOPHILS ABSOLUTE COUNT (BEAKER) (test nekh=781) 0.01 K/ L 0.00-0.20 [id number] 06:50:00 Test Item Value Reference Range Comments PHOSPHORUS (BEAKER) (test nrap=544) 3.0 mg/dL 2.3-4.7 [id number] 06:50:00 Test Item Value Reference Range Comments MAGNESIUM (BEAKER) (test knan=680) 1.9 mg/dL 1.6-2.6 BASIC METABOLIC [id number] 06:50:00 Test Item Value Reference Range Comments SODIUM (BEAKER) (test 135 meq/L 136-145 fons=946) POTASSIUM (BEAKER) (test 4.2 meq/L 3.5-5.1 ythk=482) CHLORIDE (BEAKER) (test 106 meq/L 98-107 sqye=056) CO2 (BEAKER) (test 21 meq/L 22-29 dkeq=061) BLOOD UREA NITROGEN 19 mg/dL 7-21 (BEAKER) (test nslq=361) CREATININE (BEAKER) (test 1.62 mg/dL 0.57-1.25 myoq=192) GLUCOSE RANDOM (BEAKER) 98 mg/dL 70-105 (test cblk=756) CALCIUM (BEAKER) (test 8.6 mg/dL 8.4-10.2 diqr=365) EGFR (BEAKER) (test 45 mL/min/1.73 sq m ESTIMATED GFR IS NOT cfli=9613) ACCURATE CREATININE CLEARANCE IN PREDICTING GLOMERULAR FILTRATION RATE. ESTIMATED GFR IS NOT APPLICABLE FOR DIALYSIS PATIENTS. Specimen moderately ictericHEPATIC FUNCTION [id number] 06:50:00 Test Item Value Reference Range Comments TOTAL PROTEIN (BEAKER) (test ehdf=889) 6.3 gm/dL 6.0-8.3 ALBUMIN (BEAKER) (test gioc=5471) 3.7 g/dL 3.5-5.0 BILIRUBIN TOTAL (BEAKER) (test oxsz=383) 6.2 mg/dL 0.2-1.2 BILIRUBIN DIRECT (BEAKER) (test dhlq=769) 2.8 mg/dL 0.1-0.5 ALKALINE PHOSPHATASE (BEAKER) (test eldg=740) 54 U/L 40-150 AST (SGOT) (BEAKER) (test mwaf=105) 29 U/L 5-34 ALT (SGPT) (BEAKER) (test eqwy=305) 8 U/L 6-55 Specimen moderately ictericCALCIUM, [id number] 06:48:00 Test Item Value Reference Range Comments CALCIUM IONIZED (BEAKER) (test zohj=067) 1.12 mmol/L 1.12-1.27 PH, BLOOD (BEAKER) (test hhdt=6836) 7.33 PROTHROMBIN [id number] 06:24:00 Test Item Value Reference Range Comments PROTIME (BEAKER) (test nkpz=217) 25.4 seconds 11.7-14.7 INR (BEAKER) (test tfut=642) 2.3 <=5.9 RECOMMENDED COUMADIN/WARFARIN INR THERAPY RANGESSTANDARD DOSE: 2.0 - 3.0 Includes: PROPHYLAXIS forvenous thrombosis, systemic embolization; TREATMENT for venous thrombosis and/or pulmonary embolus.HIGH RISK: Target INR is 2.5-3.5 for patients with mechanical heart valves.[id number] 11:17:00 Test Item Value Reference Range Comments FIBRINOGEN LEVEL (BEAKER) (test vlzn=149) 115 mg/dl 225-434 CALCIUM, [id number] 06:04:00 Test Item Value Reference Range Comments CALCIUM IONIZED (BEAKER) (test sqve=831) 1.08 mmol/L 1.12-1.27 PH, BLOOD (BEAKER) (test ltrm=3975) 7.41 CBC W/PLT COUNT & AUTO [id number] 05:28:00 Test Item Value Reference Range Comments WHITE BLOOD CELL COUNT (BEAKER) (test tzsa=093) 5.6 K/ L 4.0-10.0 RED BLOOD CELL COUNT (BEAKER) (test ozeg=528) 2.00 M/ L 4.20-5.80 HEMOGLOBIN (BEAKER) (test zdvh=085) 7.2 GM/DL 13.0-16.8 HEMATOCRIT (BEAKER) (test pqia=778) 21.2 % 40.0-50.0 MEAN CORPUSCULAR VOLUME (BEAKER) (test glof=015) 106.0 fL 82.0-98.0 MEAN CORPUSCULAR HEMOGLOBIN (BEAKER) (test 36.0 pg 27.0-33.0 uxpt=752) MEAN CORPUSCULAR HEMOGLOBIN CONC (BEAKER) (test 34.0 GM/DL 32.0-36.0 qslq=750) RED CELL DISTRIBUTION WIDTH (BEAKER) (test 13.9 % 10.3-14.2 aacm=119) PLATELET COUNT (BEAKER) (test motw=970) 74 K/CU MM 150-430 MEAN PLATELET VOLUME (BEAKER) (test ipua=989) 6.6 fL 6.5-10.5 NUCLEATED RED BLOOD CELLS (BEAKER) (test 0 /100 WBC 0-0 mtpw=406) NEUTROPHILS RELATIVE PERCENT (BEAKER) (test 66 % oxkt=981) LYMPHOCYTES RELATIVE PERCENT (BEAKER) (test 14 % ibce=722) MONOCYTES RELATIVE PERCENT (BEAKER) (test 13 % gljg=963) EOSINOPHILS RELATIVE PERCENT (BEAKER) (test 7 % cmzs=870) BASOPHILS RELATIVE PERCENT (BEAKER) (test 0 % yegw=655) NEUTROPHILS ABSOLUTE COUNT (BEAKER) (test 3.67 K/ L 1.80-8.00 pvrk=720) LYMPHOCYTES ABSOLUTE COUNT (BEAKER) (test 0.80 K/ L 1.48-4.50 uqua=831) MONOCYTES ABSOLUTE COUNT (BEAKER) (test xwnr=613) 0.69 K/ L 0.00-1.30 EOSINOPHILS ABSOLUTE COUNT (BEAKER) (test 0.38 K/ L 0.00-0.50 exhi=443) BASOPHILS ABSOLUTE COUNT (BEAKER) (test ytko=059) 0.02 K/ L 0.00-0.20 0.00PROTHROMBIN [id number] 05:11:00 Test Item Value Reference Range Comments PROTIME (BEAKER) (test hegk=882) 25.9 seconds 11.7-14.7 INR (BEAKER) (test ikwi=987) 2.4 <=5.9 RECOMMENDED COUMADIN/WARFARIN INR THERAPY RANGESSTANDARD DOSE: 2.0 - 3.0 Includes: PROPHYLAXIS forvenous thrombosis, systemic embolization; TREATMENT for venous thrombosis and/or pulmonary embolus.HIGH RISK: Target INR is 2.5-3.5 for patients with mechanical heart valves.[id number] 05:03:00 Test Item Value Reference Range Comments PHOSPHORUS (BEAKER) (test gcbo=407) 3.5 mg/dL 2.3-4.7 [id number] 05:03:00 Test Item Value Reference Range Comments MAGNESIUM (BEAKER) (test dgdq=121) 1.7 mg/dL 1.6-2.6 BASIC METABOLIC [id number] 05:03:00 Test Item Value Reference Range Comments SODIUM (BEAKER) (test 135 meq/L 136-145 zdxn=086) POTASSIUM (BEAKER) (test 4.0 meq/L 3.5-5.1 ywyz=920) CHLORIDE (BEAKER) (test 107 meq/L 98-107 glsw=194) CO2 (BEAKER) (test 20 meq/L 22-29 htbn=212) BLOOD UREA NITROGEN 22 mg/dL 7-21 (BEAKER) (test ajpl=637) CREATININE (BEAKER) (test 1.77 mg/dL 0.57-1.25 jimw=704) GLUCOSE RANDOM (BEAKER) 83 mg/dL 70-105 (test vtaj=524) CALCIUM (BEAKER) (test 8.3 mg/dL 8.4-10.2 xzju=993) EGFR (BEAKER) (test 41 mL/min/1.73 sq m ESTIMATED GFR IS NOT thoy=0164) ACCURATE CREATININE CLEARANCE IN PREDICTING GLOMERULAR FILTRATION RATE. ESTIMATED GFR IS NOT APPLICABLE FOR DIALYSIS PATIENTS. Specimen moderately ictericHEPATIC FUNCTION [id number] 05:03:00 Test Item Value Reference Range Comments TOTAL PROTEIN (BEAKER) (test vzke=952) 6.2 gm/dL 6.0-8.3 ALBUMIN (BEAKER) (test mcph=0235) 3.7 g/dL 3.5-5.0 BILIRUBIN TOTAL (BEAKER) (test utqd=943) 6.0 mg/dL 0.2-1.2 BILIRUBIN DIRECT (BEAKER) (test sdeb=562) 2.6 mg/dL 0.1-0.5 ALKALINE PHOSPHATASE (BEAKER) (test jpkz=244) 48 U/L 40-150 AST (SGOT) (BEAKER) (test bhcj=590) 26 U/L 5-34 ALT (SGPT) (BEAKER) (test nygq=112) 8 U/L 6-55 Specimen moderately ictericURINE [id number] 14:42:00 Test Item Value Reference Range Comments CULTURE (BEAKER) (test xnww=8536) No growth ANTI-NUCLEAR ANTIBODY (CHERYL)[id number] 13:32:00 Test Item Value Reference Range Comments ANTI-NUCLEAR ANTIBODY (CHERYL) (BEAKER) (test Negative Negative rhzz=556) PLATELET [id number] 06:30:00 Test Item Value Reference Range Comments PLATELET COUNT (BEAKER) (test azxu=515) 104 K/CU MM 150-430 [id number] 06:22:00 Test Item Value Reference Range Comments FIBRINOGEN LEVEL (BEAKER) (test oknp=403) 106 mg/dl 225-434 [id number] 06:16:00 Test Item Value Reference Range Comments PARTIAL THROMBOPLASTIN TIME (BEAKER) (test 48.1 seconds 22.5-36.0 miqk=284) PROTHROMBIN [id number] 06:15:00 Test Item Value Reference Range Comments PROTIME (BEAKER) (test svel=333) 23.5 seconds 11.7-14.7 INR (BEAKER) (test omrg=524) 2.1 <=5.9 RECOMMENDED COUMADIN/WARFARIN INR THERAPY RANGESSTANDARD DOSE: 2.0 - 3.0 Includes: PROPHYLAXIS forvenous thrombosis, systemic embolization; TREATMENT for venous thrombosis and/or pulmonary embolus.HIGH RISK: Target INR is 2.5-3.5 for patients with mechanical heart valves.[id number] 06:12:00 Test Item Value Reference Range Comments MAGNESIUM (BEAKER) (test 2.0 mg/dL 1.6-2.6 Specimen slightly hemolyzed rjfu=890) [id number] 06:12:00 Test Item Value Reference Range Comments PHOSPHORUS (BEAKER) (test 5.0 mg/dL 2.3-4.7 Specimen slightly hemolyzed ncqi=698) BASIC METABOLIC [id number] 06:12:00 Test Item Value Reference Range Comments SODIUM (BEAKER) (test 135 meq/L 136-145 bato=985) POTASSIUM (BEAKER) (test 4.7 meq/L 3.5-5.1 Specimen slightly otey=358) hemolyzed CHLORIDE (BEAKER) (test 107 meq/L 98-107 qiyy=201) CO2 (BEAKER) (test 20 meq/L 22-29 cwkb=327) BLOOD UREA NITROGEN 18 mg/dL 7-21 (BEAKER) (test dpsg=257) CREATININE (BEAKER) (test 1.74 mg/dL 0.57-1.25 Specimen slightly rbrm=868) hemolyzed GLUCOSE RANDOM (BEAKER) 76 mg/dL 70-105 (test mxvy=797) CALCIUM (BEAKER) (test 8.1 mg/dL 8.4-10.2 xunb=388) EGFR (BEAKER) (test 42 mL/min/1.73 sq m ESTIMATED GFR IS NOT tjpc=1774) ACCURATE CREATININE CLEARANCE IN PREDICTING GLOMERULAR FILTRATION RATE. ESTIMATED GFR IS NOT APPLICABLE FOR DIALYSIS PATIENTS. Specimen moderately ictericHEPATIC FUNCTION [id number] 06:12:00 Test Item Value Reference Range Comments TOTAL PROTEIN (BEAKER) (test 6.6 gm/dL 6.0-8.3 Specimen slightly hemolyzed bglr=247) ALBUMIN (BEAKER) (test 3.7 g/dL 3.5-5.0 Specimen slightly hemolyzed xszn=4144) BILIRUBIN TOTAL (BEAKER) (test 5.7 mg/dL 0.2-1.2 Specimen slightly hemolyzed nnju=504) BILIRUBIN DIRECT (BEAKER) (test 2.7 mg/dL 0.1-0.5 Specimen slightly hemolyzed rwlc=093) ALKALINE PHOSPHATASE (BEAKER) 56 U/L 40-150 (test dtdi=355) AST (SGOT) (BEAKER) (test 29 U/L 5-34 Specimen slightly hemolyzed kytj=181) ALT (SGPT) (BEAKER) (test 7 U/L 6-55 Specimen slightly hemolyzed gqpb=900) Specimen moderately ictericLACTIC ACID, VENOUS, WHOLE [id number] 06:04:00 Test Item Value Reference Range Comments LACTATE BLOOD VENOUS (2) (BEAKER) (test 1.0 mmol/L 0.5-2.2 btax=0094) Effective 02/28/2016: Units/Reference Range ChangeNew: 0.5-2.2 mmol/L Previous: 5 -20 mg/dLSpecimen moderately ictericCALCIUM, [id number] 05:56:00 Test Item Value Reference Range Comments CALCIUM IONIZED (BEAKER) (test srhs=108) 1.00 mmol/L 1.12-1.27 PH, BLOOD (BEAKER) (test fhyy=8506) 7.34 [id number] 21:34:00 Test Item Value Reference Range Comments FIBRINOGEN LEVEL (BEAKER) (test hkil=924) 105 mg/dl 225-434 PLATELET [id number] 20:52:00 Test Item Value Reference Range Comments PLATELET COUNT (BEAKER) (test pojk=169) 77 K/CU MM 150-430 [id number] 20:51:00 Test Item Value Reference Range Comments PROTIME (BEAKER) (test gsqx=827) 21.1 seconds 11.7-14.7 INR (BEAKER) (test osbt=526) 1.8 <=5.9 PARTIAL THROMBOPLASTIN TIME (BEAKER) (test 47.3 seconds 22.5-36.0 gvtu=713) RECOMMENDED COUMADIN/WARFARIN INR THERAPY RANGESSTANDARD DOSE: 2.0 - 3.0 Includes: PROPHYLAXIS forvenous thrombosis, systemic embolization; TREATMENT for venous thrombosis and/or pulmonary embolus.HIGH RISK: Target INR is 2.5-3.5 for patients with mechanical heart valves.[id number] 20:51:00 Test Item Value Reference Range Comments PARTIAL THROMBOPLASTIN TIME (BEAKER) (test 47.3 seconds 22.5-36.0 yqpf=073) PROTHROMBIN [id number] 20:50:00 Test Item Value Reference Range Comments PROTIME (BEAKER) (test jfpw=919) 21.1 seconds 11.7-14.7 INR (BEAKER) (test ncls=783) 1.8 <=5.9 RECOMMENDED COUMADIN/WARFARIN INR THERAPY RANGESSTANDARD DOSE: 2.0 - 3.0 Includes: PROPHYLAXIS forvenous thrombosis, systemic embolization; TREATMENT for venous thrombosis and/or pulmonary embolus.HIGH RISK: Target INR is 2.5-3.5 for patients with mechanical heart valves.[id number] 19:30:00 Test Item Value Reference Range Comments PARTIAL THROMBOPLASTIN TIME (BEAKER) (test 45.1 seconds 22.5-36.0 klge=673) PROTHROMBIN [id number] 19:29:00 Test Item Value Reference Range Comments PROTIME (BEAKER) (test wacp=211) 28.2 seconds 11.7-14.7 INR (BEAKER) (test rfeb=767) 2.6 <=5.9 RECOMMENDED COUMADIN/WARFARIN INR THERAPY RANGESSTANDARD DOSE: 2.0 - 3.0 Includes: PROPHYLAXIS forvenous thrombosis, systemic embolization; TREATMENT for venous thrombosis and/or pulmonary embolus.HIGH RISK: Target INR is 2.5-3.5 for patients with mechanical heart valves.BODY FLUID CELL COUNT WITH [id number] 18:53:00 Test Item Value Reference Range Comments APPEARANCE FLUID (BEAKER) (test gvhi=778) Hazy Clear COLOR FLUID (BEAKER) (test opsc=721) Yellow Colorless, Straw RBC FLUID (BEAKER) (test npvu=087) 900 /cu mm <=1 ADJUSTED WBC FLUID (BEAKER) (test rmxu=8302) 306 /cu mm <=5 LINING CELLS (BEAKER) (test znxe=4068) 64 /cu mm <=1 NEUTROPHILS FLUID (BEAKER) (test rxrj=2542) 4 % LYMPHS FLUID (BEAKER) (test lmhl=415) 18 % MONO/MACROPHAGE FLUID (BEAKER) (test xxvz=155) 78 % EOSINOPHILS FLUID (BEAKER) (test fcgn=735) 0 % BASO FLUID (BEAKER) (test lmhb=930) 0 % CONTAINER BODY FLUID (BEAKER) (test nelk=8888) EDTA Tube [id number] 16:56:00 Test Item Value Reference Range Comments AMYLASE (BEAKER) (test jxji=717) 37 U/L 25-125 Specimen moderately ictericCOMPREHENSIVE METABOLIC [id number] 16:56:00 Test Item Value Reference Range Comments TOTAL PROTEIN (BEAKER) 6.1 gm/dL 6.0-8.3 (test mwds=016) ALBUMIN (BEAKER) (test 3.2 g/dL 3.5-5.0 ysvj=5908) ALKALINE PHOSPHATASE 67 U/L 40-150 (BEAKER) (test wfas=780) BILIRUBIN TOTAL (BEAKER) 5.7 mg/dL 0.2-1.2 (test lkig=229) SODIUM (BEAKER) (test 134 meq/L 136-145 qigo=934) POTASSIUM (BEAKER) (test 3.8 meq/L 3.5-5.1 lgdd=971) CHLORIDE (BEAKER) (test 106 meq/L 98-107 ssgv=468) CO2 (BEAKER) (test 19 meq/L 22-29 qtdv=663) BLOOD UREA NITROGEN 18 mg/dL 7-21 (BEAKER) (test pdib=796) CREATININE (BEAKER) (test 1.52 mg/dL 0.57-1.25 vxsn=420) GLUCOSE RANDOM (BEAKER) 112 mg/dL 70-105 (test ljzm=865) CALCIUM (BEAKER) (test 8.3 mg/dL 8.4-10.2 arfg=030) AST (SGOT) (BEAKER) (test 28 U/L 5-34 pyco=934) ALT (SGPT) (BEAKER) (test 10 U/L 6-55 ffbl=127) EGFR (BEAKER) (test 49 mL/min/1.73 sq m ESTIMATED GFR IS NOT gsds=9652) ACCURATE CREATININE CLEARANCE IN PREDICTING GLOMERULAR FILTRATION RATE. ESTIMATED GFR IS NOT APPLICABLE FOR DIALYSIS PATIENTS. Specimen moderately [id number] 16:56:00 Test Item Value Reference Range Comments LIPASE (BEAKER) (test zkbp=575) 52 U/L 8-78 Specimen moderately ictericCBC W/PLT COUNT & AUTO [id number] 16: 27:00 Test Item Value Reference Range Comments WHITE BLOOD CELL COUNT (BEAKER) (test zaso=517) 3.7 K/ L 4.0-10.0 RED BLOOD CELL COUNT (BEAKER) (test ptge=214) 2.16 M/ L 4.20-5.80 HEMOGLOBIN (BEAKER) (test azcz=283) 7.8 GM/DL 13.0-16.8 HEMATOCRIT (BEAKER) (test jtue=421) 23.1 % 40.0-50.0 MEAN CORPUSCULAR VOLUME (BEAKER) (test sicp=089) 107.0 fL 82.0-98.0 MEAN CORPUSCULAR HEMOGLOBIN (BEAKER) (test 36.0 pg 27.0-33.0 beil=396) MEAN CORPUSCULAR HEMOGLOBIN CONC (BEAKER) (test 33.6 GM/DL 32.0-36.0 mevo=436) RED CELL DISTRIBUTION WIDTH (BEAKER) (test 13.9 % 10.3-14.2 ekou=768) PLATELET COUNT (BEAKER) (test ktpt=427) 78 K/CU MM 150-430 MEAN PLATELET VOLUME (BEAKER) (test ccdu=560) 6.2 fL 6.5-10.5 NUCLEATED RED BLOOD CELLS (BEAKER) (test 0 /100 WBC 0-0 uvvk=368) NEUTROPHILS RELATIVE PERCENT (BEAKER) (test 50 % oufj=248) LYMPHOCYTES RELATIVE PERCENT (BEAKER) (test 25 % ribv=072) MONOCYTES RELATIVE PERCENT (BEAKER) (test 19 % kgws=040) EOSINOPHILS RELATIVE PERCENT (BEAKER) (test 6 % fago=922) BASOPHILS RELATIVE PERCENT (BEAKER) (test 1 % fqib=649) NEUTROPHILS ABSOLUTE COUNT (BEAKER) (test 1.82 K/ L 1.80-8.00 mzeh=141) LYMPHOCYTES ABSOLUTE COUNT (BEAKER) (test 0.91 K/ L 1.48-4.50 ppnp=107) MONOCYTES ABSOLUTE COUNT (BEAKER) (test sjqb=811) 0.69 K/ L 0.00-1.30 EOSINOPHILS ABSOLUTE COUNT (BEAKER) (test 0.21 K/ L 0.00-0.50 nmaj=723) BASOPHILS ABSOLUTE COUNT (BEAKER) (test zydk=540) 0.02 K/ L 0.00-0.20 0.00HEPATIC FUNCTION [id number] 08:34:00 Test Item Value Reference Range Comments TOTAL PROTEIN (BEAKER) (test kpsh=250) 5.9 gm/dL 6.0-8.3 ALBUMIN (BEAKER) (test mkco=0908) 3.2 g/dL 3.5-5.0 BILIRUBIN TOTAL (BEAKER) (test tvso=469) 5.4 mg/dL 0.2-1.2 BILIRUBIN DIRECT (BEAKER) (test rgtq=775) 2.5 mg/dL 0.1-0.5 ALKALINE PHOSPHATASE (BEAKER) (test ywvo=091) 60 U/L 40-150 AST (SGOT) (BEAKER) (test txke=160) 28 U/L 5-34 ALT (SGPT) (BEAKER) (test azra=489) 10 U/L 6-55 Specimen moderately [id number] 08:16:00 Test Item Value Reference Range Comments PHOSPHORUS (BEAKER) (test pwvq=188) 3.0 mg/dL 2.3-4.7 [id number] 08:16:00 Test Item Value Reference Range Comments MAGNESIUM (BEAKER) (test gott=735) 1.6 mg/dL 1.6-2.6 BASIC METABOLIC [id number] 08:16:00 Test Item Value Reference Range Comments SODIUM (BEAKER) (test 133 meq/L 136-145 xugf=090) POTASSIUM (BEAKER) (test 3.6 meq/L 3.5-5.1 dbky=449) CHLORIDE (BEAKER) (test 105 meq/L 98-107 mqos=044) CO2 (BEAKER) (test 20 meq/L 22-29 spvs=710) BLOOD UREA NITROGEN 18 mg/dL 7-21 (BEAKER) (test thxa=236) CREATININE (BEAKER) (test 1.54 mg/dL 0.57-1.25 eait=665) GLUCOSE RANDOM (BEAKER) 70 mg/dL 70-105 (test bwlk=408) CALCIUM (BEAKER) (test 8.2 mg/dL 8.4-10.2 ligq=004) EGFR (BEAKER) (test 48 mL/min/1.73 sq m ESTIMATED GFR IS NOT bgwy=1793) ACCURATE CREATININE CLEARANCE IN PREDICTING GLOMERULAR FILTRATION RATE. ESTIMATED GFR IS NOT APPLICABLE FOR DIALYSIS PATIENTS. Specimen moderately ictericCBC W/PLT COUNT & AUTO [id number] 08: 06:00 Test Item Value Reference Range Comments WHITE BLOOD CELL COUNT (BEAKER) (test jeyv=789) 3.4 K/ L 4.0-10.0 RED BLOOD CELL COUNT (BEAKER) (test osjx=079) 2.03 M/ L 4.20-5.80 HEMOGLOBIN (BEAKER) (test stqw=342) 7.3 GM/DL 13.0-16.8 HEMATOCRIT (BEAKER) (test saaa=927) 21.6 % 40.0-50.0 MEAN CORPUSCULAR VOLUME (BEAKER) (test beqq=627) 106.0 fL 82.0-98.0 MEAN CORPUSCULAR HEMOGLOBIN (BEAKER) (test 35.8 pg 27.0-33.0 quvz=694) MEAN CORPUSCULAR HEMOGLOBIN CONC (BEAKER) (test 33.7 GM/DL 32.0-36.0 dsqc=739) RED CELL DISTRIBUTION WIDTH (BEAKER) (test 13.5 % 10.3-14.2 evje=394) PLATELET COUNT (BEAKER) (test hgbp=002) 82 K/CU MM 150-430 MEAN PLATELET VOLUME (BEAKER) (test acvk=597) 6.7 fL 6.5-10.5 NUCLEATED RED BLOOD CELLS (BEAKER) (test 0 /100 WBC 0-0 qyci=817) NEUTROPHILS RELATIVE PERCENT (BEAKER) (test 50 % zycg=897) LYMPHOCYTES RELATIVE PERCENT (BEAKER) (test 25 % okus=153) MONOCYTES RELATIVE PERCENT (BEAKER) (test 19 % vaoj=465) EOSINOPHILS RELATIVE PERCENT (BEAKER) (test 5 % zpne=652) BASOPHILS RELATIVE PERCENT (BEAKER) (test 1 % ebqc=847) NEUTROPHILS ABSOLUTE COUNT (BEAKER) (test 1.69 K/ L 1.80-8.00 ezzo=561) LYMPHOCYTES ABSOLUTE COUNT (BEAKER) (test 0.83 K/ L 1.48-4.50 czin=105) MONOCYTES ABSOLUTE COUNT (BEAKER) (test nqoa=688) 0.65 K/ L 0.00-1.30 EOSINOPHILS ABSOLUTE COUNT (BEAKER) (test 0.17 K/ L 0.00-0.50 hedf=666) BASOPHILS ABSOLUTE COUNT (BEAKER) (test jalc=978) 0.04 K/ L 0.00-0.20 0.00PROTHROMBIN [id number] 08:01:00 Test Item Value Reference Range Comments PROTIME (BEAKER) (test oakh=965) 27.6 seconds 11.7-14.7 INR (BEAKER) (test zhvb=023) 2.6 <=5.9 RECOMMENDED COUMADIN/WARFARIN INR THERAPY RANGESSTANDARD DOSE: 2.0 - 3.0 Includes: PROPHYLAXIS forvenous thrombosis, systemic embolization; TREATMENT for venous thrombosis and/or pulmonary embolus.HIGH RISK: Target INR is 2.5-3.5 for patients with mechanical heart valves.CALCIUM, [id number] 07:58:00 Test Item Value Reference Range Comments CALCIUM IONIZED (BEAKER) (test nbmu=907) 1.00 mmol/L 1.12-1.27 PH, BLOOD (BEAKER) (test kjbw=7404) 7.53 URINALYSIS W/ [id number] 18:42:00 Test Item Value Reference Range Comments COLOR (BEAKER) (test vwqd=925) Yellow CLARITY (BEAKER) (test shck=197) Clear SPECIFIC GRAVITY UA (BEAKER) (test 1.009 1.001-1.035 qdrx=252) PH UA (BEAKER) (test xfla=780) 7.5 5.0-8.0 PROTEIN UA (BEAKER) (test hffm=874) Negative Negative GLUCOSE UA (BEAKER) (test jhcd=167) Negative Negative KETONES UA (BEAKER) (test hnar=014) Negative Negative BILIRUBIN UA (BEAKER) (test vybp=653) Negative Negative BLOOD UA (BEAKER) (test wbbr=148) Negative Negative NITRITE UA (BEAKER) (test skah=349) Negative Negative LEUKOCYTE ESTERASE UA (BEAKER) (test Negative Negative jsjb=022) UROBILINOGEN UA (BEAKER) (test hunj=582) 3.0 mg/dL 0.2-1.0 RBC UA (BEAKER) (test kznf=413) 6 /HPF WBC UA (BEAKER) (test qhzz=395) 1 /HPF SOURCE(BEAKER) (test dndz=3702) Urine, Clean Catch PROTHROMBIN [id number] 15:13:00 Test Item Value Reference Range Comments PROTIME (BEAKER) (test zrsl=426) 31.4 seconds 11.7-14.7 INR (BEAKER) (test pmuz=922) 3.0 <=5.9 RECOMMENDED COUMADIN/WARFARIN INR THERAPY RANGESSTANDARD DOSE: 2.0 - 3.0 Includes: PROPHYLAXIS forvenous thrombosis, systemic embolization; TREATMENT for venous thrombosis and/or pulmonary embolus.HIGH RISK: Target INR is 2.5-3.5 for patients with mechanical heart valves.Draw after vitamin K administrationC W/PLT COUNT & AUTO [id number] 07:02:00 Test Item Value Reference Range Comments WHITE BLOOD CELL COUNT (BEAKER) (test gqle=816) 3.0 K/ L 4.0-10.0 RED BLOOD CELL COUNT (BEAKER) (test yenw=570) 2.21 M/ L 4.20-5.80 HEMOGLOBIN (BEAKER) (test ldso=233) 7.5 GM/DL 13.0-16.8 HEMATOCRIT (BEAKER) (test pzjz=215) 23.5 % 40.0-50.0 MEAN CORPUSCULAR VOLUME (BEAKER) (test dokz=045) 106.0 fL 82.0-98.0 MEAN CORPUSCULAR HEMOGLOBIN (BEAKER) (test 34.0 pg 27.0-33.0 xodv=495) MEAN CORPUSCULAR HEMOGLOBIN CONC (BEAKER) (test 32.0 GM/DL 32.0-36.0 cyaz=321) RED CELL DISTRIBUTION WIDTH (BEAKER) (test 13.0 % 10.3-14.2 bjos=943) PLATELET COUNT (BEAKER) (test cxyt=903) 81 K/CU MM 150-430 MEAN PLATELET VOLUME (BEAKER) (test owkl=591) 6.3 fL 6.5-10.5 NUCLEATED RED BLOOD CELLS (BEAKER) (test 0 /100 WBC 0-0 izkb=240) NEUTROPHILS RELATIVE PERCENT (BEAKER) (test 52 % uztk=202) LYMPHOCYTES RELATIVE PERCENT (BEAKER) (test 24 % pctf=996) MONOCYTES RELATIVE PERCENT (BEAKER) (test 20 % yvgy=294) EOSINOPHILS RELATIVE PERCENT (BEAKER) (test 3 % vwib=728) BASOPHILS RELATIVE PERCENT (BEAKER) (test 1 % gvpo=088) NEUTROPHILS ABSOLUTE COUNT (BEAKER) (test 1.53 K/ L 1.80-8.00 fbbw=997) LYMPHOCYTES ABSOLUTE COUNT (BEAKER) (test 0.71 K/ L 1.48-4.50 ppes=327) MONOCYTES ABSOLUTE COUNT (BEAKER) (test tzmf=900) 0.60 K/ L 0.00-1.30 EOSINOPHILS ABSOLUTE COUNT (BEAKER) (test 0.10 K/ L 0.00-0.50 xmwl=453) BASOPHILS ABSOLUTE COUNT (BEAKER) (test opfy=579) 0.03 K/ L 0.00-0.20 0.00BASIC METABOLIC [id number] 06:29:00 Test Item Value Reference Range Comments SODIUM (BEAKER) (test 135 meq/L 136-145 netw=483) POTASSIUM (BEAKER) (test 4.0 meq/L 3.5-5.1 mnle=399) CHLORIDE (BEAKER) (test 106 meq/L 98-107 krds=046) CO2 (BEAKER) (test 22 meq/L 22-29 rpdd=473) BLOOD UREA NITROGEN 17 mg/dL 7-21 (BEAKER) (test jcde=826) CREATININE (BEAKER) (test 1.46 mg/dL 0.57-1.25 uymb=161) GLUCOSE RANDOM (BEAKER) 75 mg/dL 70-105 (test nzid=105) CALCIUM (BEAKER) (test 8.0 mg/dL 8.4-10.2 tsjb=198) EGFR (BEAKER) (test 51 mL/min/1.73 sq m ESTIMATED GFR IS NOT bqro=0195) ACCURATE CREATININE CLEARANCE IN PREDICTING GLOMERULAR FILTRATION RATE. ESTIMATED GFR IS NOT APPLICABLE FOR DIALYSIS PATIENTS. Specimen moderately ictericHEPATIC FUNCTION [id number] 06:29:00 Test Item Value Reference Range Comments TOTAL PROTEIN (BEAKER) (test oiup=170) 5.9 gm/dL 6.0-8.3 ALBUMIN (BEAKER) (test wscl=9732) 3.0 g/dL 3.5-5.0 BILIRUBIN TOTAL (BEAKER) (test nbxv=795) 5.4 mg/dL 0.2-1.2 BILIRUBIN DIRECT (BEAKER) (test euip=550) 2.7 mg/dL 0.1-0.5 ALKALINE PHOSPHATASE (BEAKER) (test evqe=612) 65 U/L 40-150 AST (SGOT) (BEAKER) (test udxo=408) 27 U/L 5-34 ALT (SGPT) (BEAKER) (test avzw=037) 7 U/L 6-55 Specimen moderately ictericPROTHROMBIN TIME/[id number] 06:23:00 Test Item Value Reference Range Comments PROTIME (BEAKER) (test zgik=114) 31.2 seconds 11.7-14.7 INR (BEAKER) (test knvz=486) 3.0 <=5.9 RECOMMENDED COUMADIN/WARFARIN INR THERAPY RANGESSTANDARD DOSE: 2.0 - 3.0 Includes: PROPHYLAXIS forvenous thrombosis, systemic embolization; TREATMENT for venous thrombosis and/or pulmonary embolus.HIGH RISK: Target INR is 2.5-3.5 for patients with mechanical heart valves.CBC W/PLT COUNT & AUTO [id number] 06:26:00 Test Item Value Reference Range Comments WHITE BLOOD CELL COUNT (BEAKER) (test zxpi=321) 3.0 K/ L 4.0-10.0 RED BLOOD CELL COUNT (BEAKER) (test bexd=643) 2.16 M/ L 4.20-5.80 HEMOGLOBIN (BEAKER) (test dmpd=897) 7.4 GM/DL 13.0-16.8 HEMATOCRIT (BEAKER) (test pnvf=237) 23.1 % 40.0-50.0 MEAN CORPUSCULAR VOLUME (BEAKER) (test whix=266) 107.0 fL 82.0-98.0 MEAN CORPUSCULAR HEMOGLOBIN (BEAKER) (test 34.4 pg 27.0-33.0 sqwb=090) MEAN CORPUSCULAR HEMOGLOBIN CONC (BEAKER) (test 32.1 GM/DL 32.0-36.0 bixq=238) RED CELL DISTRIBUTION WIDTH (BEAKER) (test 13.1 % 10.3-14.2 mrbt=684) PLATELET COUNT (BEAKER) (test afnm=633) 72 K/CU MM 150-430 MEAN PLATELET VOLUME (BEAKER) (test jsly=828) 6.1 fL 6.5-10.5 NUCLEATED RED BLOOD CELLS (BEAKER) (test 0 /100 WBC 0-0 lmld=086) NEUTROPHILS RELATIVE PERCENT (BEAKER) (test 58 % tpuc=801) LYMPHOCYTES RELATIVE PERCENT (BEAKER) (test 21 % rsvr=881) MONOCYTES RELATIVE PERCENT (BEAKER) (test 15 % jfqe=266) EOSINOPHILS RELATIVE PERCENT (BEAKER) (test 4 % dnuz=382) BASOPHILS RELATIVE PERCENT (BEAKER) (test 1 % riqx=746) NEUTROPHILS ABSOLUTE COUNT (BEAKER) (test 1.73 K/ L 1.80-8.00 rpsv=462) LYMPHOCYTES ABSOLUTE COUNT (BEAKER) (test 0.64 K/ L 1.48-4.50 ypsw=549) MONOCYTES ABSOLUTE COUNT (BEAKER) (test yaei=957) 0.45 K/ L 0.00-1.30 EOSINOPHILS ABSOLUTE COUNT (BEAKER) (test 0.13 K/ L 0.00-0.50 ynuz=653) BASOPHILS ABSOLUTE COUNT (BEAKER) (test seua=602) 0.02 K/ L 0.00-0.20 0.00BASIC METABOLIC [id number] 06:24:00 Test Item Value Reference Range Comments SODIUM (BEAKER) (test 134 meq/L 136-145 ywiv=535) POTASSIUM (BEAKER) (test 3.7 meq/L 3.5-5.1 yxvs=718) CHLORIDE (BEAKER) (test 105 meq/L 98-107 kukn=810) CO2 (BEAKER) (test 21 meq/L 22-29 rxqb=397) BLOOD UREA NITROGEN 18 mg/dL 7-21 (BEAKER) (test ohbo=154) CREATININE (BEAKER) (test 1.53 mg/dL 0.57-1.25 idtg=369) GLUCOSE RANDOM (BEAKER) 103 mg/dL 70-105 (test jqii=736) CALCIUM (BEAKER) (test 7.6 mg/dL 8.4-10.2 yrhz=342) EGFR (BEAKER) (test 48 mL/min/1.73 sq m ESTIMATED GFR IS NOT zhpg=9708) ACCURATE CREATININE CLEARANCE IN PREDICTING GLOMERULAR FILTRATION RATE. ESTIMATED GFR IS NOT APPLICABLE FOR DIALYSIS PATIENTS. Specimen moderately ictericHEPATIC FUNCTION [id number] 06:19:00 Test Item Value Reference Range Comments TOTAL PROTEIN (BEAKER) (test ysnh=874) 5.6 gm/dL 6.0-8.3 ALBUMIN (BEAKER) (test cbiu=4579) 2.4 g/dL 3.5-5.0 BILIRUBIN TOTAL (BEAKER) (test qzqq=576) 4.8 mg/dL 0.2-1.2 BILIRUBIN DIRECT (BEAKER) (test noir=197) 2.6 mg/dL 0.1-0.5 ALKALINE PHOSPHATASE (BEAKER) (test fols=129) 70 U/L 40-150 AST (SGOT) (BEAKER) (test jdmo=491) 28 U/L 5-34 ALT (SGPT) (BEAKER) (test yidk=817) 11 U/L 6-55 Specimen moderately ictericPROTHROMBIN [id number] 06:00:00 Test Item Value Reference Range Comments PROTIME (BEAKER) (test iaee=452) 36.7 seconds 11.7-14.7 INR (BEAKER) (test piva=436) 3.7 <=5.9 RECOMMENDED COUMADIN/WARFARIN INR THERAPY RANGESSTANDARD DOSE: 2.0 - 3.0 Includes: PROPHYLAXIS forvenous thrombosis, systemic embolization; TREATMENT for venous thrombosis and/or pulmonary embolus.HIGH RISK: Target INR is 2.5-3.5 for patients with mechanical heart valves.BODY FLUID CULTURE + GRAM [id number] 00:51:00 Test Item Value Reference Range Comments CULTURE (BEAKER) (test lizz=1205) No growth GRAM STAIN RESULT (BEAKER) (test 3+ WBCs wiwu=5646) GRAM STAIN RESULT (BEAKER) (test No organisms seen ugdc=23274) BLOOD [id number] 17:08:00 Test Item Value Reference Range Comments CULTURE (BEAKER) (test oidy=4532) No growth in 5 days BLOOD [id number] 17:06:00 Test Item Value Reference Range Comments CULTURE (BEAKER) (test rthn=2911) No growth in 5 days CBC W/PLT COUNT & AUTO [id number] 07:05:00 Test Item Value Reference Range Comments WHITE BLOOD CELL COUNT (BEAKER) (test aspn=707) 3.5 K/ L 4.0-10.0 RED BLOOD CELL COUNT (BEAKER) (test gvoh=276) 2.16 M/ L 4.20-5.80 HEMOGLOBIN (BEAKER) (test isyg=150) 7.8 GM/DL 13.0-16.8 HEMATOCRIT (BEAKER) (test yzpd=772) 23.9 % 40.0-50.0 MEAN CORPUSCULAR VOLUME (BEAKER) (test sqfj=089) 111.0 fL 82.0-98.0 MEAN CORPUSCULAR HEMOGLOBIN (BEAKER) (test 36.3 pg 27.0-33.0 lgxm=575) MEAN CORPUSCULAR HEMOGLOBIN CONC (BEAKER) (test 32.8 GM/DL 32.0-36.0 aoon=716) RED CELL DISTRIBUTION WIDTH (BEAKER) (test 13.9 % 10.3-14.2 roqf=888) PLATELET COUNT (BEAKER) (test eeut=472) 72 K/CU MM 150-430 MEAN PLATELET VOLUME (BEAKER) (test cbdq=094) 6.4 fL 6.5-10.5 NUCLEATED RED BLOOD CELLS (BEAKER) (test 0 /100 WBC 0-0 zcpo=127) NEUTROPHILS RELATIVE PERCENT (BEAKER) (test 51 % ufun=423) LYMPHOCYTES RELATIVE PERCENT (BEAKER) (test 25 % twsm=273) MONOCYTES RELATIVE PERCENT (BEAKER) (test 18 % zunx=644) EOSINOPHILS RELATIVE PERCENT (BEAKER) (test 6 % dpne=728) BASOPHILS RELATIVE PERCENT (BEAKER) (test 0 % epin=665) NEUTROPHILS ABSOLUTE COUNT (BEAKER) (test 1.77 K/ L 1.80-8.00 ozev=695) LYMPHOCYTES ABSOLUTE COUNT (BEAKER) (test 0.87 K/ L 1.48-4.50 zaku=775) MONOCYTES ABSOLUTE COUNT (BEAKER) (test aogi=014) 0.62 K/ L 0.00-1.30 EOSINOPHILS ABSOLUTE COUNT (BEAKER) (test 0.22 K/ L 0.00-0.50 ipya=662) BASOPHILS ABSOLUTE COUNT (BEAKER) (test jixy=522) 0.01 K/ L 0.00-0.20 0.00BASI METABOLIC [id number] 06:54:00 Test Item Value Reference Range Comments SODIUM (BEAKER) (test 137 meq/L 136-145 uxgq=702) POTASSIUM (BEAKER) (test 3.8 meq/L 3.5-5.1 kmxm=262) CHLORIDE (BEAKER) (test 109 meq/L 98-107 dciu=057) CO2 (BEAKER) (test 21 meq/L 22-29 zrss=522) BLOOD UREA NITROGEN 17 mg/dL 7-21 (BEAKER) (test fxwh=177) CREATININE (BEAKER) (test 1.60 mg/dL 0.57-1.25 vugd=026) GLUCOSE RANDOM (BEAKER) 76 mg/dL 70-105 (test wyoi=675) CALCIUM (BEAKER) (test 7.5 mg/dL 8.4-10.2 masx=771) EGFR (BEAKER) (test 46 mL/min/1.73 sq m ESTIMATED GFR IS NOT aiim=2301) ACCURATE CREATININE CLEARANCE IN PREDICTING GLOMERULAR FILTRATION RATE. ESTIMATED GFR IS NOT APPLICABLE FOR DIALYSIS PATIENTS. Specimen moderately ictericHEPATIC FUNCTION [id number] 06:53:00 Test Item Value Reference Range Comments TOTAL PROTEIN (BEAKER) (test bvvt=813) 5.6 gm/dL 6.0-8.3 ALBUMIN (BEAKER) (test kbfx=1302) 2.4 g/dL 3.5-5.0 BILIRUBIN TOTAL (BEAKER) (test xrop=660) 4.5 mg/dL 0.2-1.2 BILIRUBIN DIRECT (BEAKER) (test xnjs=710) 2.7 mg/dL 0.1-0.5 ALKALINE PHOSPHATASE (BEAKER) (test uwtu=092) 74 U/L 40-150 AST (SGOT) (BEAKER) (test qeio=347) 36 U/L 5-34 ALT (SGPT) (BEAKER) (test njqd=391) 13 U/L 6-55 Specimen moderately ictericB-TYPE NATRIURETIC FACTOR (BNP)2017-02-08 06:52:00 Test Item Value Reference Range Comments B-TYPE NATRIURETIC PEPTIDE (BEAKER) (test 446 pg/mL 0-100 vdeg=260) PROTHROMBIN [id number] 06:36:00 Test Item Value Reference Range Comments PROTIME (BEAKER) (test szbk=695) 28.7 seconds 11.7-14.7 INR (BEAKER) (test odrj=914) 2.7 <=5.9 RECOMMENDED COUMADIN/WARFARIN INR THERAPY RANGESSTANDARD DOSE: 2.0 - 3.0 Includes: PROPHYLAXIS forvenous thrombosis, systemic embolization; TREATMENT for venous thrombosis and/or pulmonary embolus.HIGH RISK: Target INR is 2.5-3.5 for patients with mechanical heart valves.EOSINOPHIL SMEAR, [id number] 21: 44:00 Test Item Value Reference Range Comments EOSINOPHIL SMEAR, URINE (BEAKER) (test No EOS seen No EOS seen sqma=7081) CREATININE, RANDOM [id number] 18:02:00 Test Item Value Reference Range Comments CREATININE URINE (BEAKER) (test tanc=030) 96.3 mg/dL Reference Range: No NormalsSODIUM, RANDOM [id number] 18:02:00 Test Item Value Reference Range Comments SODIUM URINE (BEAKER) (test avze=947) 58 meq/L Reference Range: No NormalsURINALYSIS W/ [id number] 17:33:00 Test Item Value Reference Range Comments COLOR (BEAKER) (test rpin=240) Yellow CLARITY (BEAKER) (test creo=579) Clear SPECIFIC GRAVITY UA (BEAKER) (test gtzr=725) 1.009 1.001-1.035 PH UA (BEAKER) (test gssj=297) 6.0 5.0-8.0 PROTEIN UA (BEAKER) (test djlj=985) Negative Negative GLUCOSE UA (BEAKER) (test tirl=235) Negative Negative KETONES UA (BEAKER) (test cxwj=023) Negative Negative BILIRUBIN UA (BEAKER) (test qzwx=581) Negative Negative BLOOD UA (BEAKER) (test ytrc=603) Negative Negative NITRITE UA (BEAKER) (test eiea=962) Negative Negative LEUKOCYTE ESTERASE UA (BEAKER) (test fuak=927) Negative Negative UROBILINOGEN UA (BEAKER) (test llhy=145) 4.0 mg/dL 0.2-1.0 RBC UA (BEAKER) (test jkum=191) < /HPF WBC UA (BEAKER) (test uliq=670) 2 /HPF BACTERIA (BEAKER) (test zvqc=824) Rare SOURCE(BEAKER) (test nqum=2734) CBC W/PLT COUNT & AUTO [id number] 06:53:00 Test Item Value Reference Range Comments WHITE BLOOD CELL COUNT (BEAKER) (test ozvt=964) 3.5 K/ L 4.0-10.0 RED BLOOD CELL COUNT (BEAKER) (test qhnb=117) 2.17 M/ L 4.20-5.80 HEMOGLOBIN (BEAKER) (test wbuk=233) 7.9 GM/DL 13.0-16.8 HEMATOCRIT (BEAKER) (test eamh=617) 23.9 % 40.0-50.0 MEAN CORPUSCULAR VOLUME (BEAKER) (test wsow=873) 110.0 fL 82.0-98.0 MEAN CORPUSCULAR HEMOGLOBIN (BEAKER) (test 36.1 pg 27.0-33.0 lngf=353) MEAN CORPUSCULAR HEMOGLOBIN CONC (BEAKER) (test 32.9 GM/DL 32.0-36.0 snyo=917) RED CELL DISTRIBUTION WIDTH (BEAKER) (test 14.0 % 10.3-14.2 rtpv=124) PLATELET COUNT (BEAKER) (test usru=617) 77 K/CU MM 150-430 MEAN PLATELET VOLUME (BEAKER) (test ekxu=326) 6.1 fL 6.5-10.5 NUCLEATED RED BLOOD CELLS (BEAKER) (test 0 /100 WBC 0-0 kunt=933) NEUTROPHILS RELATIVE PERCENT (BEAKER) (test 56 % ggan=538) LYMPHOCYTES RELATIVE PERCENT (BEAKER) (test 20 % shin=771) MONOCYTES RELATIVE PERCENT (BEAKER) (test 18 % qlzn=078) EOSINOPHILS RELATIVE PERCENT (BEAKER) (test 6 % gdjq=859) BASOPHILS RELATIVE PERCENT (BEAKER) (test 1 % qfxr=513) NEUTROPHILS ABSOLUTE COUNT (BEAKER) (test 1.95 K/ L 1.80-8.00 iwwg=219) LYMPHOCYTES ABSOLUTE COUNT (BEAKER) (test 0.69 K/ L 1.48-4.50 tvjo=256) MONOCYTES ABSOLUTE COUNT (BEAKER) (test dolf=829) 0.62 K/ L 0.00-1.30 EOSINOPHILS ABSOLUTE COUNT (BEAKER) (test 0.20 K/ L 0.00-0.50 qxaf=784) BASOPHILS ABSOLUTE COUNT (BEAKER) (test ossu=134) 0.03 K/ L 0.00-0.20 0.00BASI METABOLIC [id number] 06:45:00 Test Item Value Reference Range Comments SODIUM (BEAKER) (test 134 meq/L 136-145 pbri=231) POTASSIUM (BEAKER) (test 3.6 meq/L 3.5-5.1 yzki=371) CHLORIDE (BEAKER) (test 106 meq/L 98-107 hqmh=182) CO2 (BEAKER) (test 21 meq/L 22-29 zirv=949) BLOOD UREA NITROGEN 14 mg/dL 7-21 (BEAKER) (test ykpw=489) CREATININE (BEAKER) (test 1.33 mg/dL 0.57-1.25 miel=814) GLUCOSE RANDOM (BEAKER) 71 mg/dL 70-105 (test ybfv=533) CALCIUM (BEAKER) (test 7.6 mg/dL 8.4-10.2 zfua=134) EGFR (BEAKER) (test 57 mL/min/1.73 sq m ESTIMATED GFR IS NOT lzeo=5145) ACCURATE CREATININE CLEARANCE IN PREDICTING GLOMERULAR FILTRATION RATE. ESTIMATED GFR IS NOT APPLICABLE FOR DIALYSIS PATIENTS. Specimen moderately ictericHEPATIC FUNCTION [id number] 06:40:00 Test Item Value Reference Range Comments TOTAL PROTEIN (BEAKER) (test eigx=728) 5.6 gm/dL 6.0-8.3 ALBUMIN (BEAKER) (test blml=5740) 2.1 g/dL 3.5-5.0 BILIRUBIN TOTAL (BEAKER) (test uvds=203) 4.4 mg/dL 0.2-1.2 BILIRUBIN DIRECT (BEAKER) (test oqor=172) 2.9 mg/dL 0.1-0.5 ALKALINE PHOSPHATASE (BEAKER) (test omsx=948) 86 U/L 40-150 AST (SGOT) (BEAKER) (test ilyu=808) 45 U/L 5-34 ALT (SGPT) (BEAKER) (test dfcu=481) 13 U/L 6-55 Specimen moderately ictericPROTHROMBIN [id number] 06:05:00 Test Item Value Reference Range Comments PROTIME (BEAKER) (test oqdj=239) 29.4 seconds 11.7-14.7 INR (BEAKER) (test olgf=131) 2.8 <=5.9 RECOMMENDED COUMADIN/WARFARIN INR THERAPY RANGESSTANDARD DOSE: 2.0 - 3.0 Includes: PROPHYLAXIS forvenous thrombosis, systemic embolization; TREATMENT for venous thrombosis and/or pulmonary embolus.HIGH RISK: Target INR is 2.5-3.5 for patients with mechanical heart valves.BODY FLUID CELL COUNT WITH [id number] 20:51:00 Test Item Value Reference Range Comments APPEARANCE FLUID (BEAKER) (test gvtq=588) Slightly Hazy Clear COLOR FLUID (BEAKER) (test dmaa=934) Yellow Colorless, Straw RBC FLUID (BEAKER) (test khnm=432) 545 /cu mm <=1 ADJUSTED WBC FLUID (BEAKER) (test jdel=1508) 104 /cu mm <=5 LINING CELLS (BEAKER) (test lieq=3715) 1 /cu mm <=1 NEUTROPHILS FLUID (BEAKER) (test dkvp=5232) 3 % LYMPHS FLUID (BEAKER) (test jpfs=170) 13 % MONO/MACROPHAGE FLUID (BEAKER) (test 84 % ttkl=150) EOSINOPHILS FLUID (BEAKER) (test uhov=270) 0 % BASO FLUID (BEAKER) (test tiqj=671) 0 % CONTAINER BODY FLUID (BEAKER) (test EDTA Tube cvby=5026) POCT-GLUCOSE [id number] 18:48:00 Test Item Value Reference Range Comments POC-GLUCOSE METER (BEAKER) 105 mg/dL 70-110 TESTED AT [facility] [address] [facility] (test zewn=9519) [facility] [address] BASIC METABOLIC [id number] 05:45:00 Test Item Value Reference Range Comments SODIUM (BEAKER) (test 133 meq/L 136-145 vvzn=942) POTASSIUM (BEAKER) (test 4.3 meq/L 3.5-5.1 Specimen moderately orxq=249) hemolyzed CHLORIDE (BEAKER) (test 107 meq/L 98-107 mwte=779) CO2 (BEAKER) (test 19 meq/L 22-29 hyar=742) BLOOD UREA NITROGEN 10 mg/dL 7-21 (BEAKER) (test nafy=934) CREATININE (BEAKER) (test 0.86 mg/dL 0.57-1.25 Specimen moderately nkjk=375) hemolyzed GLUCOSE RANDOM (BEAKER) 68 mg/dL 70-105 (test horq=065) CALCIUM (BEAKER) (test 7.5 mg/dL 8.4-10.2 jqqr=295) EGFR (BEAKER) (test 94 mL/min/1.73 sq m ESTIMATED GFR IS NOT jabe=5416) ACCURATE CREATININE CLEARANCE IN PREDICTING GLOMERULAR FILTRATION RATE. ESTIMATED GFR IS NOT APPLICABLE FOR DIALYSIS PATIENTS. Specimen slightly ictericHEPATIC FUNCTION [id number] 05:45:00 Test Item Value Reference Range Comments TOTAL PROTEIN (BEAKER) (test 5.9 gm/dL 6.0-8.3 Specimen moderately hemolyzed uuce=283) ALBUMIN (BEAKER) (test 1.9 g/dL 3.5-5.0 Specimen moderately hemolyzed fxcq=4574) BILIRUBIN TOTAL (BEAKER) (test 4.4 mg/dL 0.2-1.2 Specimen moderately hemolyzed rttz=882) BILIRUBIN DIRECT (BEAKER) 2.6 mg/dL 0.1-0.5 Specimen moderately hemolyzed (test ovni=132) ALKALINE PHOSPHATASE (BEAKER) 86 U/L 40-150 (test tfqt=461) AST (SGOT) (BEAKER) (test 74 U/L 5-34 Specimen moderately hemolyzed lkgi=062) ALT (SGPT) (BEAKER) (test 17 U/L 6-55 Specimen moderately bmsi=012) hemolyzed Specimen slightly ictericCBC W/PLT COUNT & AUTO [id number] 05:21 :00 Test Item Value Reference Range Comments WHITE BLOOD CELL COUNT (BEAKER) (test pplh=522) 3.5 K/ L 4.0-10.0 RED BLOOD CELL COUNT (BEAKER) (test tfjs=761) 2.06 M/ L 4.20-5.80 HEMOGLOBIN (BEAKER) (test swmu=342) 7.9 GM/DL 13.0-16.8 HEMATOCRIT (BEAKER) (test qdzk=078) 22.8 % 40.0-50.0 MEAN CORPUSCULAR VOLUME (BEAKER) (test qaom=953) 110.0 fL 82.0-98.0 MEAN CORPUSCULAR HEMOGLOBIN (BEAKER) (test 38.2 pg 27.0-33.0 bqby=906) MEAN CORPUSCULAR HEMOGLOBIN CONC (BEAKER) (test 34.6 GM/DL 32.0-36.0 mjtn=106) RED CELL DISTRIBUTION WIDTH (BEAKER) (test 13.5 % 10.3-14.2 zymp=639) PLATELET COUNT (BEAKER) (test potj=664) 61 K/CU MM 150-430 MEAN PLATELET VOLUME (BEAKER) (test wudu=466) 6.8 fL 6.5-10.5 NUCLEATED RED BLOOD CELLS (BEAKER) (test 0 /100 WBC 0-0 iopn=629) NEUTROPHILS RELATIVE PERCENT (BEAKER) (test 51 % qrnj=603) LYMPHOCYTES RELATIVE PERCENT (BEAKER) (test 24 % dzlf=272) MONOCYTES RELATIVE PERCENT (BEAKER) (test 18 % cbwp=240) EOSINOPHILS RELATIVE PERCENT (BEAKER) (test 7 % ynki=062) BASOPHILS RELATIVE PERCENT (BEAKER) (test 1 % eukc=951) NEUTROPHILS ABSOLUTE COUNT (BEAKER) (test 1.76 K/ L 1.80-8.00 qnaw=511) LYMPHOCYTES ABSOLUTE COUNT (BEAKER) (test 0.85 K/ L 1.48-4.50 ybbf=105) MONOCYTES ABSOLUTE COUNT (BEAKER) (test dekt=371) 0.61 K/ L 0.00-1.30 EOSINOPHILS ABSOLUTE COUNT (BEAKER) (test 0.23 K/ L 0.00-0.50 obkt=422) BASOPHILS ABSOLUTE COUNT (BEAKER) (test shnv=978) 0.02 K/ L 0.00-0.20 0.00PROTHROMBIN [id number] 05:19:00 Test Item Value Reference Range Comments PROTIME (BEAKER) (test vkul=833) 28.2 seconds 11.7-14.7 INR (BEAKER) (test klav=643) 2.6 <=5.9 RECOMMENDED COUMADIN/WARFARIN INR THERAPY RANGESSTANDARD DOSE: 2.0 - 3.0 Includes: PROPHYLAXIS forvenous thrombosis, systemic embolization; TREATMENT for venous thrombosis and/or pulmonary embolus.HIGH RISK: Target INR is 2.5-3.5 for patients with mechanical heart valves.BODY FLUID CULTURE + GRAM [id number] 14:14:00 Test Item Value Reference Range Comments CULTURE (BEAKER) (test zsdu=8098) No growth GRAM STAIN RESULT (BEAKER) (test 2+ WBCs abeg=6734) GRAM STAIN RESULT (BEAKER) (test No organisms seen ljaw=37321) CBC W/PLT COUNT & AUTO [id number] 10:28:00 Test Item Value Reference Range Comments WHITE BLOOD CELL COUNT (BEAKER) (test waut=547) 3.6 K/ L 4.0-10.0 RED BLOOD CELL COUNT (BEAKER) (test mrrk=720) 2.17 M/ L 4.20-5.80 HEMOGLOBIN (BEAKER) (test ekfw=692) 7.7 GM/DL 13.0-16.8 HEMATOCRIT (BEAKER) (test zgdz=137) 23.8 % 40.0-50.0 MEAN CORPUSCULAR VOLUME (BEAKER) (test vzgb=890) 110.0 fL 82.0-98.0 MEAN CORPUSCULAR HEMOGLOBIN (BEAKER) (test 35.3 pg 27.0-33.0 uusz=929) MEAN CORPUSCULAR HEMOGLOBIN CONC (BEAKER) (test 32.1 GM/DL 32.0-36.0 egie=674) RED CELL DISTRIBUTION WIDTH (BEAKER) (test 13.7 % 10.3-14.2 apin=635) PLATELET COUNT (BEAKER) (test odqq=312) 62 K/CU MM 150-430 MEAN PLATELET VOLUME (BEAKER) (test gfjt=934) 6.5 fL 6.5-10.5 NUCLEATED RED BLOOD CELLS (BEAKER) (test 0 /100 WBC 0-0 yqsy=752) NEUTROPHILS RELATIVE PERCENT (BEAKER) (test 58 % uomh=860) LYMPHOCYTES RELATIVE PERCENT (BEAKER) (test 18 % iddx=379) MONOCYTES RELATIVE PERCENT (BEAKER) (test 17 % onlh=072) EOSINOPHILS RELATIVE PERCENT (BEAKER) (test 8 % afgv=204) BASOPHILS RELATIVE PERCENT (BEAKER) (test 0 % rfwp=472) NEUTROPHILS ABSOLUTE COUNT (BEAKER) (test 2.10 K/ L 1.80-8.00 qvus=521) LYMPHOCYTES ABSOLUTE COUNT (BEAKER) (test 0.63 K/ L 1.48-4.50 fgqo=811) MONOCYTES ABSOLUTE COUNT (BEAKER) (test ycxo=281) 0.59 K/ L 0.00-1.30 EOSINOPHILS ABSOLUTE COUNT (BEAKER) (test 0.28 K/ L 0.00-0.50 sgoi=295) BASOPHILS ABSOLUTE COUNT (BEAKER) (test rxsa=996) 0.00 K/ L 0.00-0.20 [id number] 10:16:00 Test Item Value Reference Range Comments PROCALCITONIN (BEAKER) (test ubzh=9806) < ng/mL <0.05 SEPSIS RISK (ng/mL)Low: 0.05-0.50Intermediate: 0.51-2.00High: & gt;=2.01HEPATIC FUNCTION [id number] 06:26:00 Test Item Value Reference Range Comments TOTAL PROTEIN (BEAKER) (test shtg=766) 5.6 gm/dL 6.0-8.3 ALBUMIN (BEAKER) (test smky=0616) 1.9 g/dL 3.5-5.0 BILIRUBIN TOTAL (BEAKER) (test uvvg=345) 4.7 mg/dL 0.2-1.2 BILIRUBIN DIRECT (BEAKER) (test fktm=681) 2.9 mg/dL 0.1-0.5 ALKALINE PHOSPHATASE (BEAKER) (test rrca=297) 85 U/L 40-150 AST (SGOT) (BEAKER) (test dhwf=347) 53 U/L 5-34 ALT (SGPT) (BEAKER) (test jvav=921) 14 U/L 6-55 Specimen moderately ictericBASIC METABOLIC [id number] 06:26:00 Test Item Value Reference Range Comments SODIUM (BEAKER) (test 134 meq/L 136-145 bwkn=861) POTASSIUM (BEAKER) (test 3.8 meq/L 3.5-5.1 szjh=733) CHLORIDE (BEAKER) (test 107 meq/L 98-107 uprz=676) CO2 (BEAKER) (test 19 meq/L 22-29 yovt=963) BLOOD UREA NITROGEN 8 mg/dL 7-21 (BEAKER) (test ecsr=182) CREATININE (BEAKER) (test 0.73 mg/dL 0.57-1.25 awtw=606) GLUCOSE RANDOM (BEAKER) 73 mg/dL 70-105 (test dmhz=248) CALCIUM (BEAKER) (test 7.2 mg/dL 8.4-10.2 zpit=474) EGFR (BEAKER) (test 113 mL/min/1.73 sq m ESTIMATED GFR IS NOT cjls=4191) ACCURATE CREATININE CLEARANCE IN PREDICTING GLOMERULAR FILTRATION RATE. ESTIMATED GFR IS NOT APPLICABLE FOR DIALYSIS PATIENTS. Specimen moderately ictericPROTHROMBIN [id number] 06:05:00 Test Item Value Reference Range Comments PROTIME (BEAKER) (test nnfs=404) 30.9 seconds 11.7-14.7 INR (BEAKER) (test yquk=426) 3.0 <=5.9 RECOMMENDED COUMADIN/WARFARIN INR THERAPY RANGESSTANDARD DOSE: 2.0 - 3.0 Includes: PROPHYLAXIS forvenous thrombosis, systemic embolization; TREATMENT for venous thrombosis and/or pulmonary embolus.HIGH RISK: Target INR is 2.5-3.5 for patients with mechanical heart valves.[id number] 05:54:00 Test Item Value Reference Range Comments PREALBUMIN (BEAKER) (test dnoi=527) < mg/dL 14-45 URINE [id number] 12:11:00 Test Item Value Reference Range Comments CULTURE (BEAKER) (test vwqp=1677) No growth VANCOMYCIN LEVEL, [id number] 09:26:00 Test Item Value Reference Range Comments VANCOMYCIN TROUGH (BEAKER) (test nmrm=886) 15.3 ug/mL 10.0-20.0 HEPATIC FUNCTION [id number] 06:17:00 Test Item Value Reference Range Comments TOTAL PROTEIN (BEAKER) (test cmzd=710) 5.6 gm/dL 6.0-8.3 ALBUMIN (BEAKER) (test wlvm=6281) 2.0 g/dL 3.5-5.0 BILIRUBIN TOTAL (BEAKER) (test sldm=445) 4.2 mg/dL 0.2-1.2 BILIRUBIN DIRECT (BEAKER) (test iimu=283) 2.7 mg/dL 0.1-0.5 ALKALINE PHOSPHATASE (BEAKER) (test ocdt=184) 98 U/L 40-150 AST (SGOT) (BEAKER) (test drkq=533) 45 U/L 5-34 ALT (SGPT) (BEAKER) (test sbkq=485) 12 U/L 6-55 Specimen slightly ictericBASIC METABOLIC [id number] 06:17:00 Test Item Value Reference Range Comments SODIUM (BEAKER) (test 133 meq/L 136-145 ywxg=050) POTASSIUM (BEAKER) (test 3.4 meq/L 3.5-5.1 lpas=257) CHLORIDE (BEAKER) (test 107 meq/L 98-107 uxnc=938) CO2 (BEAKER) (test 22 meq/L 22-29 nohk=266) BLOOD UREA NITROGEN 7 mg/dL 7-21 (BEAKER) (test sodq=732) CREATININE (BEAKER) (test 0.73 mg/dL 0.57-1.25 xmnf=827) GLUCOSE RANDOM (BEAKER) 87 mg/dL 70-105 (test vgkl=618) CALCIUM (BEAKER) (test 7.2 mg/dL 8.4-10.2 wczm=571) EGFR (BEAKER) (test 113 mL/min/1.73 sq m ESTIMATED GFR IS NOT pxao=7319) ACCURATE CREATININE CLEARANCE IN PREDICTING GLOMERULAR FILTRATION RATE. ESTIMATED GFR IS NOT APPLICABLE FOR DIALYSIS PATIENTS. Specimen slightly ictericPROTHROMBIN [id number] 06:04:00 Test Item Value Reference Range Comments PROTIME (BEAKER) (test gdbc=741) 31.7 seconds 11.7-14.7 INR (BEAKER) (test jmlr=256) 3.0 <=5.9 RECOMMENDED COUMADIN/WARFARIN INR THERAPY RANGESSTANDARD DOSE: 2.0 - 3.0 Includes: PROPHYLAXIS forvenous thrombosis, systemic embolization; TREATMENT for venous thrombosis and/or pulmonary embolus.HIGH RISK: Target INR is 2.5-3.5 for patients with mechanical heart valves.VITAMIN B12 AND [id number] 19:36 :00 Test Item Value Reference Range Comments VITAMIN B12 (BEAKER) (test qixu=140) 1121 pg/mL 213-816 FOLATE (BEAKER) (test achw=764) 18.3 ng/mL >=7.0 Effective 09/13/2014: Folate Reference Range ChangeNew: >=7.0 Previous: & gt;=5.4VITAMIN B12 AND [id number] 14:57:00 Test Item Value Reference Range Comments VITAMIN B12 (BEAKER) (test kexq=344) 1325 pg/mL 213-816 FOLATE (BEAKER) (test qezp=763) 8.3 ng/mL >=7.0 Effective 09/13/2014: Folate Reference Range ChangeNew: >=7.0 Previous: & gt;=5.4ANTI-NUCLEAR ANTIBODY (CHERYL)2017-02-03 13:56:00 Test Item Value Reference Range Comments ANTI-NUCLEAR ANTIBODY (CHERYL) (BEAKER) (test Negative Negative ixhq=080) HEPATITIS B CORE ANTIBODY, [id number] 12:27:00 Test Item Value Reference Range Comments HEPATITIS B CORE TOTAL ANTIBODY (BEAKER) (test Nonreactive Nonreactive zuqp=194) CRYPTOCOCCAL [id number] 11:25:00 Test Item Value Reference Range Comments CRYPTOCOCCAL ANTIGEN, SERUM (BEAKER) (test Negative Negative, Interference wgdb=1416) HEPATITIS B SURFACE [id number] 11:15:00 Test Item Value Reference Range Comments HEPATITIS B SURFACE ANTIBODY (BEAKER) (test < mIU/mL <8.0 artx=583) HEPATITIS B SURFACE [id number] 09:53:00 Test Item Value Reference Range Comments HEPATITIS B SURFACE ANTIGEN (2) (BEAKER) (test Nonreactive Nonreactive pdgo=2200) HIV-1 ANTIGEN WITH HIV-1/2 [id number] 09:53:00 Test Item Value Reference Range Comments HIV-1 ANTIGEN WITH HIV 1\\T\\2 ANTIBODY (2) Nonreactive Nonreactive (BEAKER) (test wtpm=1555) HEPATIC FUNCTION [id number] 07:01:00 Test Item Value Reference Range Comments TOTAL PROTEIN (BEAKER) (test rezm=907) 5.5 gm/dL 6.0-8.3 ALBUMIN (BEAKER) (test bgef=0823) 2.0 g/dL 3.5-5.0 BILIRUBIN TOTAL (BEAKER) (test xmsp=345) 3.8 mg/dL 0.2-1.2 BILIRUBIN DIRECT (BEAKER) (test avcx=123) 2.5 mg/dL 0.1-0.5 ALKALINE PHOSPHATASE (BEAKER) (test cprj=827) 108 U/L 40-150 AST (SGOT) (BEAKER) (test mvzk=165) 40 U/L 5-34 ALT (SGPT) (BEAKER) (test wgdh=983) 10 U/L 6-55 Specimen slightly ictericBASIC METABOLIC [id number] 07:01:00 Test Item Value Reference Range Comments SODIUM (BEAKER) (test 133 meq/L 136-145 pvdn=064) POTASSIUM (BEAKER) (test 3.7 meq/L 3.5-5.1 lwda=757) CHLORIDE (BEAKER) (test 108 meq/L 98-107 ksag=157) CO2 (BEAKER) (test 20 meq/L 22-29 hmsj=202) BLOOD UREA NITROGEN 7 mg/dL 7-21 (BEAKER) (test jsuj=207) CREATININE (BEAKER) (test 0.76 mg/dL 0.57-1.25 jmrh=230) GLUCOSE RANDOM (BEAKER) 100 mg/dL 70-105 (test axzk=448) CALCIUM (BEAKER) (test 7.3 mg/dL 8.4-10.2 yheb=944) EGFR (BEAKER) (test 108 mL/min/1.73 sq m ESTIMATED GFR IS NOT bllc=9447) ACCURATE CREATININE CLEARANCE IN PREDICTING GLOMERULAR FILTRATION RATE. ESTIMATED GFR IS NOT APPLICABLE FOR DIALYSIS PATIENTS. Specimen slightly ictericCBC W/PLT COUNT & AUTO [id number] 06:53 :00 Test Item Value Reference Range Comments WHITE BLOOD CELL COUNT (BEAKER) (test mtfl=853) 3.5 K/ L 4.0-10.0 RED BLOOD CELL COUNT (BEAKER) (test runq=493) 1.83 M/ L 4.20-5.80 HEMOGLOBIN (BEAKER) (test bfos=348) 7.3 GM/DL 13.0-16.8 HEMATOCRIT (BEAKER) (test vkcx=793) 19.9 % 40.0-50.0 MEAN CORPUSCULAR VOLUME (BEAKER) (test mcdn=434) 109.0 fL 82.0-98.0 MEAN CORPUSCULAR HEMOGLOBIN (BEAKER) (test 39.9 pg 27.0-33.0 xgen=852) MEAN CORPUSCULAR HEMOGLOBIN CONC (BEAKER) (test 36.6 GM/DL 32.0-36.0 mouv=019) RED CELL DISTRIBUTION WIDTH (BEAKER) (test 14.3 % 10.3-14.2 fxjj=685) PLATELET COUNT (BEAKER) (test yzak=509) 35 K/CU MM 150-430 MEAN PLATELET VOLUME (BEAKER) (test lnel=443) 6.6 fL 6.5-10.5 NUCLEATED RED BLOOD CELLS (BEAKER) (test 0 /100 WBC 0-0 ciah=482) NEUTROPHILS RELATIVE PERCENT (BEAKER) (test 60 % zstv=481) LYMPHOCYTES RELATIVE PERCENT (BEAKER) (test 18 % lvbq=241) MONOCYTES RELATIVE PERCENT (BEAKER) (test 17 % odot=887) EOSINOPHILS RELATIVE PERCENT (BEAKER) (test 6 % wfjx=303) BASOPHILS RELATIVE PERCENT (BEAKER) (test 0 % jexs=277) NEUTROPHILS ABSOLUTE COUNT (BEAKER) (test 2.06 K/ L 1.80-8.00 lect=253) LYMPHOCYTES ABSOLUTE COUNT (BEAKER) (test 0.61 K/ L 1.48-4.50 alyj=516) MONOCYTES ABSOLUTE COUNT (BEAKER) (test arbk=556) 0.58 K/ L 0.00-1.30 EOSINOPHILS ABSOLUTE COUNT (BEAKER) (test 0.19 K/ L 0.00-0.50 khig=880) BASOPHILS ABSOLUTE COUNT (BEAKER) (test gyux=821) 0.01 K/ L 0.00-0.20 0.00PROTHROMBIN [id number] 06:39:00 Test Item Value Reference Range Comments PROTIME (BEAKER) (test tsav=592) 30.6 seconds 11.7-14.7 INR (BEAKER) (test guhl=890) 2.9 <=5.9 RECOMMENDED COUMADIN/WARFARIN INR THERAPY RANGESSTANDARD DOSE: 2.0 - 3.0 Includes: PROPHYLAXIS forvenous thrombosis, systemic embolization; TREATMENT for venous thrombosis and/or pulmonary embolus.HIGH RISK: Target INR is 2.5-3.5 for patients with mechanical heart valves.URINALYSIS W/ [id number] 16 :58:00 Test Item Value Reference Range Comments COLOR (BEAKER) (test nexp=166) Yellow CLARITY (BEAKER) (test bbpb=219) Clear SPECIFIC GRAVITY UA (BEAKER) (test 1.025 1.001-1.035 eyah=682) PH UA (BEAKER) (test djly=516) 7.0 5.0-8.0 PROTEIN UA (BEAKER) (test xuum=931) Negative Negative GLUCOSE UA (BEAKER) (test lwlc=392) Negative Negative KETONES UA (BEAKER) (test hflg=494) Negative Negative BILIRUBIN UA (BEAKER) (test gbcx=166) Positive Negative BLOOD UA (BEAKER) (test mzxq=608) Negative Negative NITRITE UA (BEAKER) (test tumx=184) Negative Negative LEUKOCYTE ESTERASE UA (BEAKER) (test Negative Negative mkbl=757) UROBILINOGEN UA (BEAKER) (test qsng=171) 8.0 mg/dL 0.2-1.0 RBC UA (BEAKER) (test mbla=817) 0 /HPF WBC UA (BEAKER) (test rggr=173) 2 /HPF MUCUS (BEAKER) (test hjoz=4865) Rare HYALINE CASTS (BEAKER) (test rtfy=586) 3 /LPF SOURCE(BEAKER) (test odxg=9843) Urine, Clean Catch [id number] 13:32:00 Test Item Value Reference Range Comments FERRITIN (BEAKER) (test dlvo=627) 116 ng/mL 5-275 Effective 09/13/2014: Reference Range ChangeNew: Male 5-275 Previous: Male 22-322 Female 5-275 Female 10-291HEPATITIS A ANTIBODY, [id number] 13:19:00 Test Item Value Reference Range Comments HEPATITIS A IGG ANTIBODY (BEAKER) (test dzbb=8769) Reactive Nonreactive ALPHA FETOPROTEIN (AFP), TUMOR [id number] 13:17:00 Test Item Value Reference Range Comments ALPHA-FETOPROTEIN (BEAKER) (test wnco=3855) 4.5 ng/mL <10.0 Effective 09/13/2014: Reference Range ChangeNew: <10.0 Previous: 0.0- 8.0HEPATITIS C [id number] 13:17:00 Test Item Value Reference Range Comments HEPATITIS C ANTIBODY (BEAKER) (test vtjn=369) Nonreactive Nonreactive BODY FLUID CELL COUNT WITH [id number] 13:03:00 Test Item Value Reference Range Comments APPEARANCE FLUID (BEAKER) (test dupf=791) Cloudy Clear COLOR FLUID (BEAKER) (test ydan=013) Yellow Colorless, Straw RBC FLUID (BEAKER) (test mbiw=839) 1519 /cu mm <=1 ADJUSTED WBC FLUID (BEAKER) (test sqzq=7624) 108 /cu mm <=5 LINING CELLS (BEAKER) (test noxx=8499) 14 /cu mm <=1 NEUTROPHILS FLUID (BEAKER) (test dfod=5187) 11 % LYMPHS FLUID (BEAKER) (test hfat=566) 30 % MONO/MACROPHAGE FLUID (BEAKER) (test zvcr=913) 59 % EOSINOPHILS FLUID (BEAKER) (test otpv=639) 0 % BASO FLUID (BEAKER) (test bvqa=487) 0 % CONTAINER BODY FLUID (BEAKER) (test kncp=2659) EDTA Tube BASIC METABOLIC [id number] 12:56:00 Test Item Value Reference Range Comments SODIUM (BEAKER) (test 131 meq/L 136-145 fpmq=970) POTASSIUM (BEAKER) (test 4.0 meq/L 3.5-5.1 Specimen moderately ilkw=287) hemolyzed CHLORIDE (BEAKER) (test 105 meq/L 98-107 sjqs=674) CO2 (BEAKER) (test 18 meq/L 22-29 ugbm=756) BLOOD UREA NITROGEN 6 mg/dL 7-21 (BEAKER) (test aqme=729) CREATININE (BEAKER) (test 0.72 mg/dL 0.57-1.25 Specimen moderately xlhd=658) hemolyzed GLUCOSE RANDOM (BEAKER) 103 mg/dL 70-105 (test cjqh=967) CALCIUM (BEAKER) (test 7.4 mg/dL 8.4-10.2 vcgx=338) EGFR (BEAKER) (test 115 mL/min/1.73 sq m ESTIMATED GFR IS NOT rfed=4894) ACCURATE CREATININE CLEARANCE IN PREDICTING GLOMERULAR FILTRATION RATE. ESTIMATED GFR IS NOT APPLICABLE FOR DIALYSIS PATIENTS. Specimen moderately ictericIRON, TIBC, % SAT. (WITHOUT FERRITIN)2017-02-02 12:56 :00 Test Item Value Reference Range Comments IRON (BEAKER) (test iybg=516) 55 ug/dL 40-160 TOTAL IRON BINDING CAPACITY (BEAKER) (test 175 ug/dL 250-450 pwsx=059) IRON % SATURATION (2) (BEAKER) (test rjag=3501) 31 % 20-55 HEPATIC FUNCTION [id number] 12:50:00 Test Item Value Reference Range Comments TOTAL PROTEIN (BEAKER) (test 6.7 gm/dL 6.0-8.3 Specimen moderately hemolyzed vops=976) ALBUMIN (BEAKER) (test 2.0 g/dL 3.5-5.0 Specimen moderately hemolyzed umbv=2636) BILIRUBIN TOTAL (BEAKER) (test 5.1 mg/dL 0.2-1.2 Specimen moderately hemolyzed xzqv=045) BILIRUBIN DIRECT (BEAKER) 2.8 mg/dL 0.1-0.5 Specimen moderately hemolyzed (test gjzu=379) ALKALINE PHOSPHATASE (BEAKER) 99 U/L 40-150 (test zmeq=758) AST (SGOT) (BEAKER) (test 62 U/L 5-34 Specimen moderately hemolyzed ltns=311) ALT (SGPT) (BEAKER) (test 15 U/L 6-55 Specimen moderately jeof=378) hemolyzed Specimen moderately ictericCBC W/PLT COUNT & AUTO [id number] 12: 47:00 Test Item Value Reference Range Comments WHITE BLOOD CELL COUNT (BEAKER) (test hjiq=896) 3.3 K/ L 4.0-10.0 RED BLOOD CELL COUNT (BEAKER) (test druv=865) 2.08 M/ L 4.20-5.80 HEMOGLOBIN (BEAKER) (test acre=271) 7.8 GM/DL 13.0-16.8 HEMATOCRIT (BEAKER) (test bcnw=264) 22.9 % 40.0-50.0 MEAN CORPUSCULAR VOLUME (BEAKER) (test kyio=631) 110.0 fL 82.0-98.0 MEAN CORPUSCULAR HEMOGLOBIN (BEAKER) (test 37.4 pg 27.0-33.0 nvmt=143) MEAN CORPUSCULAR HEMOGLOBIN CONC (BEAKER) (test 34.1 GM/DL 32.0-36.0 hftt=549) RED CELL DISTRIBUTION WIDTH (BEAKER) (test 15.0 % 10.3-14.2 cyyn=767) PLATELET COUNT (BEAKER) (test wncm=936) 48 K/CU MM 150-430 MEAN PLATELET VOLUME (BEAKER) (test duqn=414) 6.6 fL 6.5-10.5 NUCLEATED RED BLOOD CELLS (BEAKER) (test 0 /100 WBC 0-0 kkwk=075) NEUTROPHILS RELATIVE PERCENT (BEAKER) (test 62 % bkwh=584) LYMPHOCYTES RELATIVE PERCENT (BEAKER) (test 17 % qpmk=892) MONOCYTES RELATIVE PERCENT (BEAKER) (test 15 % roqy=934) EOSINOPHILS RELATIVE PERCENT (BEAKER) (test 6 % xunm=092) BASOPHILS RELATIVE PERCENT (BEAKER) (test 0 % yklz=334) NEUTROPHILS ABSOLUTE COUNT (BEAKER) (test 2.03 K/ L 1.80-8.00 qatp=607) LYMPHOCYTES ABSOLUTE COUNT (BEAKER) (test 0.57 K/ L 1.48-4.50 divc=280) MONOCYTES ABSOLUTE COUNT (BEAKER) (test ubtx=892) 0.48 K/ L 0.00-1.30 EOSINOPHILS ABSOLUTE COUNT (BEAKER) (test 0.19 K/ L 0.00-0.50 jqoo=208) BASOPHILS ABSOLUTE COUNT (BEAKER) (test mmmc=819) 0.01 K/ L 0.00-0.20 0.00PROTHROMBIN [id number] 12:42:00 Test Item Value Reference Range Comments PROTIME (BEAKER) (test jyfz=237) 27.0 seconds 11.7-14.7 INR (BEAKER) (test ffvo=029) 2.5 <=5.9 RECOMMENDED COUMADIN/WARFARIN INR THERAPY RANGESSTANDARD DOSE: 2.0 - 3.0 Includes: PROPHYLAXIS forvenous thrombosis, systemic embolization; TREATMENT for venous thrombosis and/or pulmonary embolus.HIGH RISK: Target INR is 2.5-3.5 for patients with mechanical heart valves.ALBUMIN, BODY [id number] 11:46:00 Test Item Value Reference Range Comments ALBUMIN FLUID (BEAKER) (test badg=668) 0.5 gm/dL Reference Range: No Normals Assay performance has not been validated for this type of specimen.PROTEIN, BODY [id number] 11:42:00 Test Item Value Reference Range Comments PROTEIN FLUID (BEAKER) (test evcq=915) 1.3 g/dL Absence of reference range indicates that normals have not been defined.Assay performance has not been validated for this type of specimen.
--- OUTSIDE RECORDS SUMMARY | 2018-08-24 22:30 | XMS REPORT ---
[...] Status Dosage System Date Date Midodrine HCl [facility] 78265193445 10 MG Orally Active 1 tablet Three times a day Pantoprazole [facility] 48605456221 40 MG Orally Active 1 tablet Sodium Once a day Sodium Chloride ND 74370442663 1 GM Orally TID Active 2 tablets Ondansetron HCl ND 76963721101 4 MG Orally Active 1 tab every 8 hours as needed for Nausea and vomiting Hydrocortisone ND 13413669021 20 MG Orally AM Active 1 tablet Once a day with food or milk Ursodiol ND 04798100336 300 MG Orally Active not defined Lactulose ND 65749750497 10 GM/15ML Active 15 ml Orally TID Citalopram [facility] 81771251228 10 MG Active TAKE ONE Hydrobromide DAILY Rifaximin [facility] [address]-40 550 MG Orally Active 1 tablet Twice a day Ondansetron HCl [facility] 77463333609 4 MG Active 1 TAB EVERY 8 HOURS NEEDED FOR NAUSEA AND VOMITING ORALLY 10 DAYS Magnesium Oxide [facility] 93961217582 400 MG Orally Active 1 tablet BID as needed NuFera [facility] 28723649343 - Orally once a Active 1 tab day Hydrocortisone [facility] 77853038267 10 MG Orally PM Active 1 tablet Once a day with food or milk Results No Known Results Summary Purpose eClinicalWorks Submission
--- OUTSIDE RECORDS SUMMARY | 2018-08-24 22:30 | XMS REPORT ---
[...] Status Dosage System Date Date Ondansetron HCl [facility] 07841954695 4 MG Orally Active 1 tab every 8 hours as needed for Nausea and vomiting Hydrocortisone ND 82095416201 20 MG Orally AM Active 1 tablet Once a day with food or milk Magnesium Oxide ND 17857262127 400 MG Orally Active 1 tablet BID as needed Rifaximin [facility] [address]-27 550 MG Orally Active 1 tablet Twice a day Pantoprazole ND 99495049958 40 MG Orally Active 1 tablet Sodium Once a day Sodium Chloride ND 52015420138 1 GM Orally TID Active 2 tablets Lactulose ND 20777661311 10 GM/15ML Active 15 ml Orally TID Ondansetron HCl [facility] 45785133688 4 MG Active 1 TAB EVERY 8 HOURS NEEDED FOR NAUSEA AND VOMITING ORALLY 10 DAYS Citalopram [facility] 45380878121 40 MG Orally Active take one Hydrobromide once a day daily Hydrocortisone [facility] 86832079431 10 MG Orally PM Active 1 tablet Once a day with food or milk NuFera [facility] 22416013730 - Orally once a Active 1 tab day Citalopram [facility] 58878585934 10 MG Active TAKE ONE Hydrobromide DAILY Ursodiol [facility] 43863285436 300 MG Orally Active not defined Midodrine HCl [facility] 28820980320 10 MG Orally Active 1 tablet Three times a day Results No Known Results Summary Purpose eClinicalWorks Submission
[2018-08-24] MEDS ORDERED: NA CHLORIDE 0.9% 1,000 ML ONE (23:01)
[2018-08-24 23:08] LABS: Absolute Lymphocytes (CBC) 0.4 K/uL (0.7-4.9); Absolute Monocytes 1.3 K/uL (0.1-1.3); Absolute Neutrophil 8.1 K/uL (1.8-8.0); Basophils % 0.3 % (0-1.3); Eosinophils % 0.2 % (0-4.4); MCH 32.6 pg (27.0-35.0); MCV 91.7 fL (80-100); MPV 7.4 fL (7.6-11.3); Monocytes % 13.1 % (3.3-12.3); RBC Red Blood Cell Count 2.73 M/uL (4.33-5.43)
[2018-08-24 23:10] LABS: Protime INR 1.91
[2018-08-24 23:32] LABS: ALT/SGPT 13 U/L (12-78); AST/SGOT 22 U/L (15-37); Albumin 3.1 g/dL (3.4-5.0); Alkaline Phosphatase 179 U/L (45-117); Amylase Level 31 U/L (25-115); BUN Blood Urea Nitrogen 41 mg/dL (7-18); Bicarbonate 22 mmol/L (21-32); Bilirubin Direct 1.4 mg/dL (0-0.2); Bilirubin Total 2.3 mg/dL (0.2-1.0); Glucose Level 109 mg/dL (74-106); Magnesium 2.5 mg/dL (1.8-2.4); NT PRO-BNP 369 pg/mL (<125); Potassium 4.5 mmol/L (3.5-5.1); Protein, Total 5.6 g/dL (6.4-8.2); Troponin (Emerg Dept Use Only) < 0.02 ng/mL (0.0-0.045)
[2018-08-24 23:33] LABS: Sodium Level 115 mmol/L (136-145)
--- NOTE | 2018-08-25 03:02 | ER ---
Nurse's Notes [facility] Name: Abhishek Davis Age: 53 yrs Sex: Male : 1965 Arrival Date: 08/24/2018 Time: 22:21 Bed 7 Private MD: Diagnosis: Hyponatremia. Multilevel compression fractures lumbar vertebral bodies. S/P Fall Presentation: 08/24 22:22 Presenting complaint: EMS states: pt slipped in shower unknown time ago, was found by ak1 caregiver 20 mins prior to EMS arrival. pt A\T\OX4 with back pain and generalized pain all over. Transition of care: patient was not received from another setting of care. Onset of symptoms was August 24, 2018. Risk Assessment: Do you want to hurt yourself or someone else? Patient reports no desire to harm self or others. Care prior to arrival: None. 22:22 Method Of Arrival: EMS: [facility] ak1 22:22 Acuity: KACEY 3 ak1 22:25 Note pt denies LOC. ak1 23:22 Initial Sepsis Screen: Does the patient meet any 2 criteria? Altered Mental Status. HR rr5 > 90 bpm. Yes Does the patient have a suspected source of infection? No. Patient's initial sepsis screen is negative. Triage Assessment: 22:25 General: Appears uncomfortable, ill, Behavior is calm, cooperative. ak1 Historical: - Allergies: 22:25 No Known Allergies; ak1 - Home Meds: 22:25 Centrum Oral daily [Active]; citalopram 10 mg tab 1 tab once daily [Active]; Lactulose ak1 Oral 30 mL 3 times per day [Active]; Lasix 40 mg Oral tab 1 tab once daily [Active]; mag oxide 400 mg daily [Active]; midodrine 5 mg Oral tab twice a day [Active]; ursodiol 300 mg Oral cap 1 cap 2 times per day [Active]; Xifaxan 550 mg Oral tab 1 tab 2 times per day [Active]; - PMHx: 22:25 Anemia; Cirrhosis; renal insufficiency; Umbilical hernia; ak1 - PSHx: 22:25 Unable to obtain; ak1 - Immunization history:: Adult Immunizations unknown. - Social history:: Smoking status: Patient/guardian denies using tobacco. - Ebola Screening: : No symptoms or risks identified at this time. Screenin:10 Abuse screen: Denies threats or abuse. Denies injuries from another. Nutritional rr5 screening: No deficits noted. Tuberculosis screening: No symptoms or risk factors identified. Fall Risk IV access (20 points). Gait- Weak (10 pts.). Mental Status- Overestimates/Forgets Limitations (15 pts.). Total Ty Fall Scale indicates High Risk Score (45 or more points). Fall prevention measures have been instituted. Side Rails Up X 2 Frequent Obs/Assessments Occuring Family Present and informed to notify staff if the need to leave the bedside As available patient and family educated on Fall Prevention Program and Strategies. Assessment: 22:40 General: Appears uncomfortable, Behavior is calm, cooperative. rr5 22:40 General: Reports weakness. Pain:. Pain: Complains of pain in back Pain does not rr5 radiate. Pain currently is 6 out of 10 on a pain scale. Quality of pain is described as aching, Pain began 1 hour ago. Is continuous, Aggravated by increased activity. Neuro: Level of Consciousness is awake, Oriented to person. Cardiovascular: Capillary refill < 3 seconds Rhythm is sinus tachycardia. Respiratory: Airway is patent. GI: Abdomen is distended, protrude navel area. : No signs and/or symptoms were reported regarding the genitourinary system. EENT: Eyes icteric sclera. Derm: Skin is dry. Musculoskeletal: Capillary refill < 3 seconds, back pain. 23:10 Reassessment: Patient and/or family updated on plan of care and expected duration. Pain rr5 level reassessed. Patient states symptoms have improved. 08/25 00:21 Reassessment: Patient and/or family updated on plan of care and expected duration. Pain ea level reassessed. Pt returned from CT. Alert and oriented to self. Respirations even and unlabored. Chest expansions even and symmetrical. No s/s of pain or discomfort noted at this time. 01:12 Reassessment: Patient appears in no apparent distress at this time. waiting for CT rr5 results. 02:38 Reassessment: Patient appears in no apparent distress at this time. Patient and/or rr5 family updated on plan of care and expected duration. Pain level reassessed. 03:19 Reassessment: Patient and/or family updated on plan of care and expected duration. Pain ea level reassessed. Pt complaining of pain, provider notified, verbal order for pain medication obtained. 04:30 Reassessment: [facility] josue NÚÑEZdirector of midwifery/staff midwife accepted the case. rr5 05:08 Reassessment: Patient appears in no apparent distress at this time. hand over to EMS rr5 staff patient is stable vital signs. Vital Signs: 08/24 22:22 BP 127 / 84; Pulse 111; Resp 20; Temp 98.6(O); Pulse Ox 99% on R/A; Weight 63.5 kg (R); ak1 Height 5 ft. 9 in. (175.26 cm) (R); Pain 6/10; 23:01 BP 119 / 93; Pulse 105; Resp 19; Pulse Ox 100% ; ea 08/25 00:23 BP 111 / 95; Pulse 110; Resp 18; Pulse Ox 100% ; ea 01:05 BP 178 / 85; Pulse 70; Resp 18; Pulse Ox 99% on R/A; ea 02:37 BP 117 / 80; Pulse 98; Resp 17; Pulse Ox 98% on R/A; rr5 03:30 BP 121 / 88; Pulse 102; Resp 13; Pulse Ox 99% on R/A; rr5 04:21 BP 112 / 82; Pulse 100; Resp 12; Pulse Ox 98% on R/A; ea 05:00 BP 118 / 87; Pulse 97; Resp 12; Pulse Ox 97% on R/A; ea 08/24 22:22 Body Mass Index 20.67 (63.50 kg, 175.26 cm) ak1 ED Course: 08/24 22:21 Patient arrived in ED. ak1 22:23 Triage completed. ak1 22:25 Arm band placed on Patient placed in an exam room, on a stretcher, on pulse oximetry, ak1 Patient notified of wait time. 22:26 Patient has correct armband on for positive identification. Placed in gown. Bed in low ak1 position. Call light in reach. Side rails up X2. Pulse ox on. NIBP on. 22:29 Carlos Segal MD is Attending Physician. pkl 22:31 Berry Juarez RN is Primary Nurse. rr5 22:51 XRAY Chest (1 view) In Process Unspecified. EDMS 23:00 Inserted saline lock: 20 gauge in right forearm, using aseptic technique. Blood rr5 collected. 23:[address] via stretcher. kw1 08/25 00:12 CT completed. Patient tolerated procedure well. Patient moved back from CT. kw1 00:13 CT Traumagram (Head C Spine CAP wo con) In Process Unspecified. EDMS 04:23 No provider procedures requiring assistance completed. Patient transferred, IV remains ea in place. Administered Medications: 08/24 23:00 Drug: NS 0.9% 1000 ml Route: IV; Rate: 100 ml/hr; Site: right forearm; rr5 08/25 04:28 Follow up: IV Status: Infusion continued upon transfer ea 03:30 Drug: Zofran 4 mg Route: IVP; Site: right forearm; rr5 04:20 Follow up: Response: No adverse reaction; Marked relief of symptoms; Nausea is decreasedea 03:32 Drug: morphine 4 mg Route: IVP; Site: right forearm; rr5 04:21 Follow up: Response: No adverse reaction; Pain is decreased ea Outcome: 03:02 ER care complete, transfer ordered by . pkfrederick 03:30 Instructed on the need for admit, Demonstrated understanding of instructions. ea 05:09 Transferred by ground EMS to [facility], Transfer form completed. rr5 05:09 Condition: stable 05:11 Patient left the ED. rr5 Signatures: Dispatcher [employer] Carlos Juárez MD MD pkl Krenek, Amber RN RN akAgustina Rausch RN RN ea Wilhelm, Kimberly kw1 Berry Juarez RN RN rr5
--- NOTE | 2018-08-25 03:03 | EDPHYS ---
Physician Documentation [facility] Name: Abhishek Davis Age: 53 yrs Sex: Male : 1965 Arrival Date: 08/24/2018 Time: 22:21 Bed 7 Private MD: ED Physician Carlos Segal HPI: 08/24 22:59 This 53 yrs old Male presents to ER via EMS with complaints of Fall Injury. pkl 22:59 Details of fall: The patient fell from an upright position. Onset: The symptoms/episode pkl began/occurred just prior to arrival, 1 hour(s) ago. Associated injuries: The patient sustained upper back injury, injury to the low back, contusion. Historical: - Allergies: 22:25 No Known Allergies; ak1 - Home Meds: 22:25 Centrum Oral daily [Active]; citalopram 10 mg tab 1 tab once daily [Active]; Lactulose ak1 Oral 30 mL 3 times per day [Active]; Lasix 40 mg Oral tab 1 tab once daily [Active]; mag oxide 400 mg daily [Active]; midodrine 5 mg Oral tab twice a day [Active]; ursodiol 300 mg Oral cap 1 cap 2 times per day [Active]; Xifaxan 550 mg Oral tab 1 tab 2 times per day [Active]; - PMHx: 22:25 Anemia; Cirrhosis; renal insufficiency; Umbilical hernia; ak1 - PSHx: 22:25 Unable to obtain; ak1 - Immunization history:: Adult Immunizations unknown. - Social history:: Smoking status: Patient/guardian denies using tobacco. - Ebola Screening: : No symptoms or risks identified at this time. ROS: 22:59 Eyes: Negative for injury, pain, redness, and discharge, ENT: Negative for injury, pkl pain, and discharge, Neck: Negative for injury, pain, and swelling, Cardiovascular: Negative for chest pain, palpitations, and edema, Respiratory: Negative for shortness of breath, cough, wheezing, and pleuritic chest pain, Abdomen/GI: Negative for abdominal pain, nausea, vomiting, diarrhea, and constipation. 22:59 Back: Positive for pain with movement, of the upper and lower back. 22:59 : Negative for urinary symptoms. 22:59 MS/extremity: Negative for acute changes, injury or acute deformity. 22:59 Skin: Negative for rash. 22:59 Neuro: Negative for altered mental status, loss of consciousness. Exam: 22:59 Head/Face: Normocephalic, atraumatic. Eyes: Pupils equal round and reactive to light, pkl extra-ocular motions intact. Lids and lashes normal. Conjunctiva and sclera are non-icteric and not injected. Cornea within normal limits. Periorbital areas with no swelling, redness, or edema. ENT: Nares patent. No nasal discharge, no septal abnormalities noted. Tympanic membranes are normal and external auditory canals are clear. Oropharynx with no redness, swelling, or masses, exudates, or evidence of obstruction, uvula midline. Mucous membranes moist. Neck: Trachea midline, no thyromegaly or masses palpated, and no cervical lymphadenopathy. Supple, full range of motion without nuchal rigidity, or vertebral point tenderness. No Meningismus. Chest/axilla: Normal chest wall appearance and motion. Nontender with no deformity. No lesions are appreciated. Cardiovascular: Regular rate and rhythm with a normal S1 and S2. No gallops, murmurs, or rubs. Normal PMI, no JVD. No pulse deficits. Respiratory: Lungs have equal breath sounds bilaterally, clear to auscultation and percussion. No rales, rhonchi or wheezes noted. No increased work of breathing, no retractions or nasal flaring. Abdomen/GI: Soft, non-tender, with normal bowel sounds. No distension or tympany. No guarding or rebound. No evidence of tenderness throughout. 22:59 Back: pain, that is moderate, of the upper and lower back. 22:59 : Exam negative for acute changes. 22:59 Musculoskeletal/extremity: Exam is negative for acute changes. 22:59 Skin: Exam negative for rash. 22:59 Neuro: Orientation: appropriate for stated age, Mentation: is normal, Cranial nerves: grossly normal, Motor: is normal. Vital Signs: 22:22 BP 127 / 84; Pulse 111; Resp 20; Temp 98.6(O); Pulse Ox 99% on R/A; Weight 63.5 kg (R); ak1 Height 5 ft. 9 in. (175.26 cm) (R); Pain 6/10; 23:01 BP 119 / 93; Pulse 105; Resp 19; Pulse Ox 100% ; ea 08/25 00:23 BP 111 / 95; Pulse 110; Resp 18; Pulse Ox 100% ; ea 01:05 BP 178 / 85; Pulse 70; Resp 18; Pulse Ox 99% on R/A; ea 02:37 BP 117 / 80; Pulse 98; Resp 17; Pulse Ox 98% on R/A; rr5 03:30 BP 121 / 88; Pulse 102; Resp 13; Pulse Ox 99% on R/A; rr5 04:21 BP 112 / 82; Pulse 100; Resp 12; Pulse Ox 98% on R/A; ea 05:00 BP 118 / 87; Pulse 97; Resp 12; Pulse Ox 97% on R/A; ea 08/24 22:22 Body Mass Index 20.67 (63.50 kg, 175.26 cm) ak1 MDM: 08/24 22:29 Patient medically screened. pkl 08/25 00:25 Data reviewed: vital signs, nurses notes, lab test result(s), EKG, radiologic studies, pkl CT scan, plain films. 08/24 22:36 Order name: Basic Metabolic Panel pkl 08/24 22:36 Order name: CBC with Diff; Complete Time: 23:30 pkl 08/24 22:36 Order name: LFT's; Complete Time: 23:35 pkl 08/24 22:36 Order name: Magnesium; Complete Time: 23:35 pkl 08/24 22:36 Order name: NT PRO-BNP; Complete Time: 23:35 pkl 08/24 22:36 Order name: PT-INR; Complete Time: 23:30 pkl 08/24 22:36 Order name: Troponin (emerg Dept Use Only); Complete Time: 23:35 pkl 08/24 22:36 Order name: XRAY Chest (1 view) pkl 08/24 22:36 Order name: Amylase, Serum; Complete Time: 23:35 pkl 08/24 22:36 Order name: AMMONIA; Complete Time: 23:30 pkl 08/24 22:37 Order name: Basic Metabolic Panel; Complete Time: 23:35 EDMS 08/24 23:37 Order name: CT Traumagram (Head C Spine CAP wo con) pkl 08/24 22:36 Order name: EKG; Complete Time: 22:37 pkl 08/24 22:36 Order name: Cardiac monitoring; Complete Time: 23:18 pkl 08/24 22:36 Order name: EKG - Nurse/Tech; Complete Time: 23:00 pkl 08/24 22:36 Order name: IV Saline Lock; Complete Time: 23:00 pkl 08/24 22:36 Order name: Labs collected and sent; Complete Time: 23:00 pkl 08/24 22:36 Order name: O2 Per Protocol; Complete Time: 23:00 pkl 08/24 22:36 Order name: O2 Sat Monitoring; Complete Time: 23:00 pkl Administered Medications: 08/24 23:00 Drug: NS 0.9% 1000 ml Route: IV; Rate: 100 ml/hr; Site: right forearm; rr5 08/25 04:28 Follow up: IV Status: Infusion continued upon transfer ea 03:30 Drug: Zofran 4 mg Route: IVP; Site: right forearm; rr5 04:20 Follow up: Response: No adverse reaction; Marked relief of symptoms; Nausea is decreasedea 03:32 Drug: morphine 4 mg Route: IVP; Site: right forearm; rr5 04:21 Follow up: Response: No adverse reaction; Pain is decreased ea Disposition: 08/25/18 03:02 Transfer ordered to [facility]. Diagnosis is Hyponatremia. Multilevel compression fractures lumbar vertebral bodies. S/P Fall. - Reason for transfer: Higher level of care. - Accepting physician is Dr. Franco. - Condition is Stable. - Problem is new. - Symptoms are unchanged. Signatures: Dispatcher [employer] EDCarlos Jimenez MD MD pkl Jenna Leahy RN RN ak1 Berry Juarez RN RN rr5 Agustina Stout RN, ea Corrections: (The following items were deleted from the chart) 05:11 03:02 08/25/2018 03:02 Transfer ordered to [facility]. Diagnosis is rr5 Hyponatremia. Multilevel compression fractures lumbar vertebral bodies. S/P Fall. Reason for transfer: Higher level of care. Accepting physician is Dr. Franco. Condition is Stable. Problem is new. Symptoms are unchanged. pkl
[2018-08-25] MEDS ORDERED: MORPHINE 4 MG/ML SYR ONE ×2 (03:30→05:11)
[2018-08-25] MEDS ORDERED: ONDANSETRON 4 MG/2 ML VIAL ONE (03:31)
[2018-08-25 05:15] VITALS: TEMP 98.6
[2018-08-25 05:23] VITALS: BP 118/87; O2SAT 97
--- NOTE | 2018-08-25 06:58 | EKG ---
Test Date: 2018-08-24 Test Time: 22:53:26 Hotbed Lever Operator: LAURA MEASUREMENT RESULTS: Intervals: Rate: 105 TN: 192 QRSD: 94 QT: 360 QTc: 475 [place]: P: 22 TN: 192 QRS: -16 T: -18 INTERPRETIVE STATEMENTS: Sinus tachycardia Voltage criteria for left ventricular hypertrophy Abnormal ECG Compared to ECG 08/13/2018 15:43:16 Left ventricular hypertrophy now present Sinus rhythm no longer present Prolonged QT interval no longer present Electronically Signed On 08-25-18 06:58:11 CDT by Ghanshyam Young
--- NOTE | 2018-08-25 08:58 | RAD REPORT ---
EXAM DESCRIPTION: CT - Head C Spine Cap Wo Con - 08/25/2018 1:35 am TECHNIQUE: Computed axial tomography of the head and cervical spine was obtained. Coronal and sagitt al reconstruction was performed Prelim report was generated virtual radiologic and prior to dictation Computed axial tomography of the chest, abdomen and pelvis was obtained. Contrast was not requested. All CT scans are performed using dose optimization technique as appropriate and may include automated exposure control or mA/KV adjustment according to patient size. CLINICAL HISTORY: Head and neck injury with chest and abdominal pain status post fall COMPARISON: April 2018 FINDINGS: An intracranial bleed is not seen. The ventricles are normal in caliber. No acute intracranial abnormality is noted. Fluid within the sinuses/mastoids is not seen. A cervical fracture is not seen. No dislocation is noted. The evaluation of mediastinum, eleazar, vessels, solid organs and bowel are limited secondary to the lac k of contrast administration. A mediastinal hematoma is not noted. A pleural effusion is not seen. A lung contusion is not present. The liver,spleen, pancreas, adrenals,kidneys and bladder do not demonstrate a traumatic injury. A cir rhotic liver is noted. Gallstones are present without gallbladder wall thickening. Mild compression fractures have developed involving L1, L4 and L5 vertebral bodies. . Moderate to large amount of ascites is present. Umbilical hernia is noted IMPRESSION: 1. No acute intracranial abnormality is seen. 2. A cervical fracture is not visualized. 3. Mild compression fractures involving the vertebral bodies of L1, L4 and L5 appear acute 4. No additional acute traumatic injury involving the chest, abdomen/pelvis
--- NOTE | 2018-08-25 08:59 | RAD REPORT ---
EXAM DESCRIPTION: Elizabeth Single View08/24/2018 10:51 pm CLINICAL HISTORY: Chest pain COMPARISON: July 2018 FINDINGS: The lungs appear clear of acute infiltrate. The heart is normal size IMPRESSION: No acute abnormalities displayed
== END 2018-08-25 05:11 | disposition short-term general hospital (02) ==
LOC: ER 22:19
DX: S32.009A Unspecified fracture of unspecified lumbar vertebra, initial encounter for closed fracture (principal); E87.1 Hypo-osmolality and hyponatremia; K74.60 Unspecified cirrhosis of liver; W17.89XA Other fall from one level to another, initial encounter; Y93.9 Activity, unspecified; Y92.9 Unspecified place or not applicable
CPT/HCPCS: 36415; 70450; 71045; 71250; 72125; 80048; 80076; 82140; 82150; 83735; 83880; 84484; 85025; 85610; 93005; 96361; 96374; 96375; 99285; J2405; J7030

== ENCOUNTER → 2018-09-15 | Day surgery (SDC) | payer MEDICAID ==
[~2018-09-15] MED LIST: ALBUMIN HUMAN 25% 100 ML IV ONE; TRAMADOL HCL 50 MG TAB ONE
--- OUTSIDE RECORDS SUMMARY | 2018-09-15 09:30 | XMS REPORT ---
:1965 Author Organization [facility] Address [facility] [place] [address] [place] [id number] Care Team Providers Name Role Phone INGRID JUNIOR Unavailable Unavailable BRANDO AGUILAR Unavailable Unavailable RYANNE LARKIN Unavailable [...] Comments Text Results Atomic Results Result Comments BODY FLUID CULTURE + GRAM STAIN 2018-09-12 09:32:00 Test Item Value Reference Range Comments CULTURE (BEAKER) (test cidl=6104) No growth GRAM STAIN RESULT (BEAKER) (test fykb=3021) No WBCs GRAM STAIN RESULT (BEAKER) (test orkq=62867) No organisms seen POCT-GLUCOSE [id number] 07:52:00 Test Item Value Reference Range Comments POC-GLUCOSE METER (BEAKER) 115 mg/dL 70-110 TESTED AT [facility] [address] [place] [address] (test tklm=7202) [facility] [address] [id number] 05:18:00 Test Item Value Reference Range Comments MAGNESIUM (BEAKER) (test eizq=544) 1.9 mg/dL 1.6-2.6 COMPREHENSIVE METABOLIC [id number] 05:18:00 Test Item Value Reference Range Comments TOTAL PROTEIN (BEAKER) 5.2 gm/dL 6.0-8.3 (test lpvh=973) ALBUMIN (BEAKER) (test 3.4 g/dL 3.5-5.0 riji=4385) ALKALINE PHOSPHATASE 113 U/L 40-150 (BEAKER) (test ejfo=948) BILIRUBIN TOTAL (BEAKER) 2.9 mg/dL 0.2-1.2 (test ehtq=005) SODIUM (BEAKER) (test 131 meq/L 136-145 gdmm=389) POTASSIUM (BEAKER) (test 4.0 meq/L 3.5-5.1 xvau=639) CHLORIDE (BEAKER) (test 101 meq/L 98-107 gnfa=659) CO2 (BEAKER) (test 21 meq/L 22-29 gcnu=163) BLOOD UREA NITROGEN 28 mg/dL 7-21 (BEAKER) (test vmbd=691) CREATININE (BEAKER) (test 1.65 mg/dL 0.57-1.25 rniv=658) GLUCOSE RANDOM (BEAKER) 122 mg/dL 70-105 (test njuc=083) CALCIUM (BEAKER) (test 9.3 mg/dL 8.4-10.2 qzkz=911) AST (SGOT) (BEAKER) (test 15 U/L 5-34 hzxe=651) ALT (SGPT) (BEAKER) (test 8 U/L 6-55 zglt=910) EGFR (BEAKER) (test 44 mL/min/1.73 sq m ESTIMATED GFR IS NOT eklv=0084) ACCURATE CREATININE CLEARANCE IN PREDICTING GLOMERULAR FILTRATION RATE. ESTIMATED GFR IS NOT APPLICABLE FOR DIALYSIS PATIENTS. Specimen slightly ictericPROTHROMBIN [id number] 04:48:00 Test Item Value Reference Range Comments PROTIME (BEAKER) (test dgio=153) 20.9 seconds 11.7-14.7 INR (BEAKER) (test tkeu=067) 1.8 <=5.9 RECOMMENDED COUMADIN/WARFARIN INR THERAPY RANGESSTANDARD DOSE: 2.0 - 3.0 Includes: PROPHYLAXIS forvenous thrombosis, systemic embolization; TREATMENT for venous thrombosis and/or pulmonary embolus.HIGH RISK: Target INR is 2.5-3.5 for patients with mechanical heart valves.CBC W/PLT COUNT & AUTO [id number] 04:45:00 Test Item Value Reference Range Comments WHITE BLOOD CELL COUNT (BEAKER) (test wbyv=205) 3.4 K/ L 3.5-10.5 RED BLOOD CELL COUNT (BEAKER) (test nzka=250) 2.55 M/ L 4.63-6.08 HEMOGLOBIN (BEAKER) (test jodo=034) 8.1 GM/DL 13.7-17.5 HEMATOCRIT (BEAKER) (test htgf=026) 24.0 % 40.1-51.0 MEAN CORPUSCULAR VOLUME (BEAKER) (test nmkl=743) 94.1 fL 79.0-92.2 MEAN CORPUSCULAR HEMOGLOBIN (BEAKER) (test 31.8 pg 25.7-32.2 tvmj=110) MEAN CORPUSCULAR HEMOGLOBIN CONC (BEAKER) (test 33.8 GM/DL 32.3-36.5 eizi=157) RED CELL DISTRIBUTION WIDTH (BEAKER) (test 15.8 % 11.6-14.4 vyfj=955) PLATELET COUNT (BEAKER) (test ylje=416) 41 K/CU MM 150-450 MEAN PLATELET VOLUME (BEAKER) (test mqbm=397) 10.0 fL 9.4-12.4 NUCLEATED RED BLOOD CELLS (BEAKER) (test 0 /100 WBC 0-0 gwoc=204) NEUTROPHILS RELATIVE PERCENT (BEAKER) (test 63 % eruq=798) LYMPHOCYTES RELATIVE PERCENT (BEAKER) (test 19 % hary=502) MONOCYTES RELATIVE PERCENT (BEAKER) (test 16 % fwsy=593) EOSINOPHILS RELATIVE PERCENT (BEAKER) (test 2 % lenb=268) BASOPHILS RELATIVE PERCENT (BEAKER) (test 0 % fwat=347) NEUTROPHILS ABSOLUTE COUNT (BEAKER) (test 2.13 K/ L 1.78-5.38 tzcp=645) LYMPHOCYTES ABSOLUTE COUNT (BEAKER) (test 0.62 K/ L 1.32-3.57 jntk=732) MONOCYTES ABSOLUTE COUNT (BEAKER) (test dwxt=535) 0.52 K/ L 0.30-0.82 EOSINOPHILS ABSOLUTE COUNT (BEAKER) (test 0.08 K/ L 0.04-0.54 spmu=496) BASOPHILS ABSOLUTE COUNT (BEAKER) (test qsrg=684) 0.00 K/ L 0.01-0.08 IMMATURE GRANULOCYTES-RELATIVE PERCENT (BEAKER) 0 % 0-1 (test aupu=0830) POCT-GLUCOSE [id number] 21:35:00 Test Item Value Reference Range Comments POC-GLUCOSE METER (BEAKER) 215 mg/dL 70-110 TESTED AT [facility] [address] [facility] (test tmeu=3787) [facility] [address] POCT-GLUCOSE [id number] 18:17:00 Test Item Value Reference Range Comments POC-GLUCOSE METER (BEAKER) 149 mg/dL 70-110 TESTED AT [facility] [address] [facility] (test yzah=9757) [facility] [address] COMPREHENSIVE METABOLIC [id number] 07:34:00 Test Item Value Reference Range Comments TOTAL PROTEIN (BEAKER) 4.7 gm/dL 6.0-8.3 Specimen slightly (test opcg=521) hemolyzed ALBUMIN (BEAKER) (test 3.0 g/dL 3.5-5.0 Specimen slightly uzak=7981) hemolyzed ALKALINE PHOSPHATASE 107 U/L 40-150 (BEAKER) (test sxma=333) BILIRUBIN TOTAL (BEAKER) 3.1 mg/dL 0.2-1.2 Specimen slightly (test mnby=950) hemolyzed SODIUM (BEAKER) (test 125 meq/L 136-145 wcrn=266) POTASSIUM (BEAKER) (test 4.9 meq/L 3.5-5.1 Specimen slightly mhju=903) hemolyzed CHLORIDE (BEAKER) (test 96 meq/L 98-107 rksy=856) CO2 (BEAKER) (test 24 meq/L 22-29 mzpr=842) BLOOD UREA NITROGEN 30 mg/dL 7-21 (BEAKER) (test cvwn=069) CREATININE (BEAKER) (test 1.61 mg/dL 0.57-1.25 Specimen slightly wloh=719) hemolyzed GLUCOSE RANDOM (BEAKER) 127 mg/dL 70-105 (test fmpt=163) CALCIUM (BEAKER) (test 8.6 mg/dL 8.4-10.2 wefd=652) AST (SGOT) (BEAKER) (test 17 U/L 5-34 Specimen slightly shaf=504) hemolyzed ALT (SGPT) (BEAKER) (test < U/L 6-55 Specimen slightly izem=249) hemolyzed EGFR (BEAKER) (test 45 mL/min/1.73 sq m ESTIMATED GFR IS NOT nejc=8173) ACCURATE CREATININE CLEARANCE IN PREDICTING GLOMERULAR FILTRATION RATE. ESTIMATED GFR IS NOT APPLICABLE FOR DIALYSIS PATIENTS. Specimen slightly [id number] 06:49:00 Test Item Value Reference Range Comments PHOSPHORUS (BEAKER) (test xnmq=046) 3.0 mg/dL 2.3-4.7 [id number] 06:49:00 Test Item Value Reference Range Comments MAGNESIUM (BEAKER) (test vziz=317) 2.0 mg/dL 1.6-2.6 PROTHROMBIN [id number] 06:39:00 Test Item Value Reference Range Comments PROTIME (BEAKER) (test kbuq=152) 23.0 seconds 11.7-14.7 INR (BEAKER) (test bdnk=836) 2.0 <=5.9 RECOMMENDED COUMADIN/WARFARIN INR THERAPY RANGESSTANDARD DOSE: 2.0 - 3.0 Includes: PROPHYLAXIS forvenous thrombosis, systemic embolization; TREATMENT for venous thrombosis and/or pulmonary embolus.HIGH RISK: Target INR is 2.5-3.5 for patients with mechanical heart valves.CBC W/PLT COUNT & AUTO [id number] 06:37:00 Test Item Value Reference Range Comments WHITE BLOOD CELL COUNT (BEAKER) (test fllf=979) 3.3 K/ L 3.5-10.5 RED BLOOD CELL COUNT (BEAKER) (test idxm=382) 2.43 M/ L 4.63-6.08 HEMOGLOBIN (BEAKER) (test yvhd=934) 7.8 GM/DL 13.7-17.5 HEMATOCRIT (BEAKER) (test xore=991) 22.7 % 40.1-51.0 MEAN CORPUSCULAR VOLUME (BEAKER) (test khht=955) 93.4 fL 79.0-92.2 MEAN CORPUSCULAR HEMOGLOBIN (BEAKER) (test 32.1 pg 25.7-32.2 stmv=161) MEAN CORPUSCULAR HEMOGLOBIN CONC (BEAKER) (test 34.4 GM/DL 32.3-36.5 phgm=804) RED CELL DISTRIBUTION WIDTH (BEAKER) (test 15.7 % 11.6-14.4 rrye=323) PLATELET COUNT (BEAKER) (test shjf=792) 37 K/CU MM 150-450 MEAN PLATELET VOLUME (BEAKER) (test pcex=742) 9.6 fL 9.4-12.4 NUCLEATED RED BLOOD CELLS (BEAKER) (test 0 /100 WBC 0-0 maka=844) NEUTROPHILS RELATIVE PERCENT (BEAKER) (test 70 % ymvu=865) LYMPHOCYTES RELATIVE PERCENT (BEAKER) (test 16 % ulmj=338) MONOCYTES RELATIVE PERCENT (BEAKER) (test 11 % xyha=066) EOSINOPHILS RELATIVE PERCENT (BEAKER) (test 2 % jbgk=082) BASOPHILS RELATIVE PERCENT (BEAKER) (test 0 % ugyz=268) NEUTROPHILS ABSOLUTE COUNT (BEAKER) (test 2.29 K/ L 1.78-5.38 fvos=181) LYMPHOCYTES ABSOLUTE COUNT (BEAKER) (test 0.51 K/ L 1.32-3.57 ebrt=381) MONOCYTES ABSOLUTE COUNT (BEAKER) (test kvpd=717) 0.37 K/ L 0.30-0.82 EOSINOPHILS ABSOLUTE COUNT (BEAKER) (test 0.07 K/ L 0.04-0.54 qnoa=027) BASOPHILS ABSOLUTE COUNT (BEAKER) (test heqi=632) 0.01 K/ L 0.01-0.08 IMMATURE GRANULOCYTES-RELATIVE PERCENT (BEAKER) 0 % 0-1 (test esit=7202) CALCIUM, [id number] 06:36:00 Test Item Value Reference Range Comments CALCIUM IONIZED (BEAKER) (test aoww=605) 1.00 mmol/L 1.12-1.27 PH, BLOOD (BEAKER) (test jbra=5506) 7.53 POCT-GLUCOSE [id number] 22:31:00 Test Item Value Reference Range Comments POC-GLUCOSE METER (BEAKER) 185 mg/dL 70-110 TESTED AT [address] (test qbfu=2293) [facility] [address] POCT-GLUCOSE [id number] 16:03:00 Test Item Value Reference Range Comments POC-GLUCOSE METER (BEAKER) 166 mg/dL 70-110 TESTED AT [address] (test cami=4216) [facility] [address] POCT-GLUCOSE [id number] 12:05:00 Test Item Value Reference Range Comments POC-GLUCOSE METER (BEAKER) 175 mg/dL 70-110 TESTED AT [address] (test rjcx=9477) [facility] [address] POCT-GLUCOSE [id number] 08:02:00 Test Item Value Reference Range Comments POC-GLUCOSE METER (BEAKER) 162 mg/dL 70-110 TESTED AT [facility] [address] (test krxp=1411) [place] [address] [id number] 03:52:00 Test Item Value Reference Range Comments MAGNESIUM (BEAKER) (test 2.1 mg/dL 1.6-2.6 Specimen slightly hemolyzed qttu=275) [id number] 03:52:00 Test Item Value Reference Range Comments PHOSPHORUS (BEAKER) (test 3.0 mg/dL 2.3-4.7 Specimen slightly hemolyzed plii=842) COMPREHENSIVE METABOLIC [id number] 03:52:00 Test Item Value Reference Range Comments TOTAL PROTEIN (BEAKER) 4.9 gm/dL 6.0-8.3 Specimen slightly (test jknz=727) hemolyzed ALBUMIN (BEAKER) (test 3.2 g/dL 3.5-5.0 Specimen slightly etle=7251) hemolyzed ALKALINE PHOSPHATASE 109 U/L 40-150 (BEAKER) (test bren=235) BILIRUBIN TOTAL (BEAKER) 2.7 mg/dL 0.2-1.2 Specimen slightly (test qcqo=171) hemolyzed SODIUM (BEAKER) (test 125 meq/L 136-145 tfuk=131) POTASSIUM (BEAKER) (test 4.7 meq/L 3.5-5.1 Specimen slightly bjdx=339) hemolyzed CHLORIDE (BEAKER) (test 96 meq/L 98-107 cbch=164) CO2 (BEAKER) (test 23 meq/L 22-29 tbri=309) BLOOD UREA NITROGEN 27 mg/dL 7-21 (BEAKER) (test uiqp=223) CREATININE (BEAKER) (test 1.86 mg/dL 0.57-1.25 Specimen slightly qaqn=271) hemolyzed GLUCOSE RANDOM (BEAKER) 164 mg/dL 70-105 (test cujo=755) CALCIUM (BEAKER) (test 8.4 mg/dL 8.4-10.2 cbys=730) AST (SGOT) (BEAKER) (test 17 U/L 5-34 Specimen slightly sqho=459) hemolyzed ALT (SGPT) (BEAKER) (test 6 U/L 6-55 Specimen slightly rogi=996) hemolyzed EGFR (BEAKER) (test 38 mL/min/1.73 sq m ESTIMATED GFR IS NOT oqja=2903) ACCURATE CREATININE CLEARANCE IN PREDICTING GLOMERULAR FILTRATION RATE. ESTIMATED GFR IS NOT APPLICABLE FOR DIALYSIS PATIENTS. Specimen slightly ictericCALCIUM, [id number] 03:13:00 Test Item Value Reference Range Comments CALCIUM IONIZED (BEAKER) (test oqob=904) 0.94 mmol/L 1.12-1.27 PH, BLOOD (BEAKER) (test tadu=6985) 7.55 PROTHROMBIN [id number] 03:10:00 Test Item Value Reference Range Comments PROTIME (BEAKER) (test zboa=547) 22.6 seconds 11.7-14.7 INR (BEAKER) (test tapd=949) 2.0 <=5.9 RECOMMENDED COUMADIN/WARFARIN INR THERAPY RANGESSTANDARD DOSE: 2.0 - 3.0 Includes: PROPHYLAXIS forvenous thrombosis, systemic embolization; TREATMENT for venous thrombosis and/or pulmonary embolus.HIGH RISK: Target INR is 2.5-3.5 for patients with mechanical heart valves.CBC W/PLT COUNT & AUTO [id number] 03:03:00 Test Item Value Reference Range Comments WHITE BLOOD CELL COUNT (BEAKER) (test cqjv=631) 3.4 K/ L 3.5-10.5 RED BLOOD CELL COUNT (BEAKER) (test fxzz=622) 2.46 M/ L 4.63-6.08 HEMOGLOBIN (BEAKER) (test ddiv=273) 7.8 GM/DL 13.7-17.5 HEMATOCRIT (BEAKER) (test fybh=551) 23.5 % 40.1-51.0 MEAN CORPUSCULAR VOLUME (BEAKER) (test eatg=034) 95.5 fL 79.0-92.2 MEAN CORPUSCULAR HEMOGLOBIN (BEAKER) (test 31.7 pg 25.7-32.2 jssk=680) MEAN CORPUSCULAR HEMOGLOBIN CONC (BEAKER) (test 33.2 GM/DL 32.3-36.5 gahe=351) RED CELL DISTRIBUTION WIDTH (BEAKER) (test 15.6 % 11.6-14.4 kvac=366) PLATELET COUNT (BEAKER) (test dbdt=160) 44 K/CU MM 150-450 MEAN PLATELET VOLUME (BEAKER) (test lzeh=028) 10.6 fL 9.4-12.4 NUCLEATED RED BLOOD CELLS (BEAKER) (test 0 /100 WBC 0-0 vinv=999) NEUTROPHILS RELATIVE PERCENT (BEAKER) (test 79 % jbas=414) LYMPHOCYTES RELATIVE PERCENT (BEAKER) (test 12 % eemh=291) MONOCYTES RELATIVE PERCENT (BEAKER) (test 8 % hdje=428) EOSINOPHILS RELATIVE PERCENT (BEAKER) (test 0 % nrgx=239) BASOPHILS RELATIVE PERCENT (BEAKER) (test 0 % gscf=229) NEUTROPHILS ABSOLUTE COUNT (BEAKER) (test 2.67 K/ L 1.78-5.38 mbmz=802) LYMPHOCYTES ABSOLUTE COUNT (BEAKER) (test 0.41 K/ L 1.32-3.57 ixpk=103) MONOCYTES ABSOLUTE COUNT (BEAKER) (test ehmp=495) 0.27 K/ L 0.30-0.82 EOSINOPHILS ABSOLUTE COUNT (BEAKER) (test 0.01 K/ L 0.04-0.54 nllo=146) BASOPHILS ABSOLUTE COUNT (BEAKER) (test bqkr=261) 0.01 K/ L 0.01-0.08 IMMATURE GRANULOCYTES-RELATIVE PERCENT (BEAKER) 0 % 0-1 (test qgau=5481) POCT-GLUCOSE [id number] 22:50:00 Test Item Value Reference Range Comments POC-GLUCOSE METER (BEAKER) 199 mg/dL 70-110 TESTED AT [facility] [address] [facility] (test drvk=3084) [facility] [address] BODY FLUID CELL COUNT WITH [id number] 21:09:00 Test Item Value Reference Range Comments APPEARANCE FLUID (BEAKER) (test nnpo=107) Clear Clear COLOR FLUID (BEAKER) (test qzfq=227) Yellow Colorless, Straw RBC FLUID (BEAKER) (test hvvp=295) 140 /cu mm <=1 ADJUSTED WBC FLUID (BEAKER) (test uekv=7021) 70 /cu mm <=5 LINING CELLS (BEAKER) (test sctx=9725) 0 /cu mm <=1 NEUTROPHILS FLUID (BEAKER) (test fpae=7860) 5 % LYMPHS FLUID (BEAKER) (test bsif=983) 18 % MONO/MACROPHAGE FLUID (BEAKER) (test cswu=291) 77 % EOSINOPHILS FLUID (BEAKER) (test xzwu=037) 0 % BASO FLUID (BEAKER) (test audt=453) 0 % CONTAINER BODY FLUID (BEAKER) (test toco=2719) EDTA Tube CORTISOL,60 [id number] 20:10:00 Test Item Value Reference Range Comments CORTISOL BASELINE NETWORKED (BEAKER) (test 5.6 mcg/dL ohmg=6973) CORTISOL 30 MINUTE NETWORKED (BEAKER) (test 13.7 mcg/dL xmoo=6303) CORTISOL, 60 MINUTE (BEAKER) (test bvvt=0354) 17.1 ug/dL ACTH STIMULATION TEST INTERPRETATION GUIDELINES(Synonyms: Cortrosyn [...] serum cortisollevel 60 minutes after cosyntropin administration.CORTISOL,30 [id number] 19:45:00 Test Item Value Reference Range Comments CORTISOL BASELINE NETWORKED (BEAKER) (test 5.6 mcg/dL vhtp=9037) CORTISOL, 30 MINUTE (BEAKER) (test vvbf=2408) 13.7 ug/dL ACTH STIMULATION TEST INTERPRETATION GUIDELINES(Synonyms: Cortrosyn [...] serum cortisollevel 60 minutes after cosyntropin administration.U/S, [id number] 19:13:00Reason for exam:->therapeuticFINAL REPORT PROCEDURE: Ultrasound- guided paracentesis. INDICATION: Ascites. DESCRIPTION: After obtaining informed written consent, ultrasound scan of the abdomen identified ascites in the right lower quadrant. The overlying skin was prepped and draped in the usual, sterile fashion and local 1% lidocaine anesthesia was administered. A 5 [place] catheter was advanced into the peritoneal cavity and 6000 mL of area fluid was removed. The catheter was removed without immediate complication. Samples were sent for analysis. IMPRESSION:Uncomplicated ultrasound-guided paracentesis with 6000 mL of fluid removed. Signed: Stuart Dupree [facility] Verified Date/Time: 09/08/2018 19 :13:16 Reading Location: [address] Ultrasound Reading Room Electronically signed by: Claudia WEAVER 09/08/2018 07:13 PMCORTISOL, [id number] 18:54:00 Test Item Value Reference Range Comments CORTISOL, BASELINE (TUNG) (test vwub=8361) 5.6 ug/dL ACTH STIMULATION TEST INTERPRETATION GUIDELINES(Synonyms: Cortrosyn [...] Draw serum cortisollevel 60 minutes after cosyntropin administration.POCT-GLUCOSE [id number] 12:49:00 Test Item Value Reference Range Comments POC-GLUCOSE METER (BEAKER) 184 mg/dL 70-110 TESTED AT [address] (test hldr=7559) [place] [address] POCT-GLUCOSE [id number] 07:56:00 Test Item Value Reference Range Comments POC-GLUCOSE METER (BEAKER) 174 mg/dL 70-110 TESTED AT [address] (test njjg=2169) [place] [address] B-TYPE NATRIURETIC FACTOR (BNP)2018-09-08 05:20:00 Test Item Value Reference Range Comments B-TYPE NATRIURETIC PEPTIDE (BEAKER) (test 900 pg/mL 0-100 zfzh=867) [id number] 05:15:00 Test Item Value Reference Range Comments PHOSPHORUS (BEAKER) (test adfu=834) 3.2 mg/dL 2.3-4.7 [id number] 05:15:00 Test Item Value Reference Range Comments MAGNESIUM (BEAKER) (test cqrt=762) 2.1 mg/dL 1.6-2.6 COMPREHENSIVE METABOLIC [id number] 05:15:00 Test Item Value Reference Range Comments TOTAL PROTEIN (BEAKER) 4.9 gm/dL 6.0-8.3 (test wvue=410) ALBUMIN (BEAKER) (test 3.2 g/dL 3.5-5.0 xahh=3109) ALKALINE PHOSPHATASE 109 U/L 40-150 (BEAKER) (test ixsc=157) BILIRUBIN TOTAL (BEAKER) 2.7 mg/dL 0.2-1.2 (test oikd=535) SODIUM (BEAKER) (test 128 meq/L 136-145 oezp=072) POTASSIUM (BEAKER) (test 3.9 meq/L 3.5-5.1 vwfb=655) CHLORIDE (BEAKER) (test 98 meq/L 98-107 ycwo=566) CO2 (BEAKER) (test 23 meq/L 22-29 yprx=821) BLOOD UREA NITROGEN 27 mg/dL 7-21 (BEAKER) (test xzip=027) CREATININE (BEAKER) (test 2.17 mg/dL 0.57-1.25 duoh=898) GLUCOSE RANDOM (BEAKER) 136 mg/dL 70-105 (test hzdt=353) CALCIUM (BEAKER) (test 8.6 mg/dL 8.4-10.2 mfjz=470) AST (SGOT) (BEAKER) (test 15 U/L 5-34 diuf=318) ALT (SGPT) (BEAKER) (test 7 U/L 6-55 nkkq=606) EGFR (BEAKER) (test 32 mL/min/1.73 sq m ESTIMATED GFR IS NOT ciqb=5004) ACCURATE CREATININE CLEARANCE IN PREDICTING GLOMERULAR FILTRATION RATE. ESTIMATED GFR IS NOT APPLICABLE FOR DIALYSIS PATIENTS. Specimen slightly ictericPROTHROMBIN [id number] 05:01:00 Test Item Value Reference Range Comments PROTIME (BEAKER) (test ekcb=240) 22.0 seconds 11.7-14.7 INR (BEAKER) (test wzru=840) 1.9 <=5.9 RECOMMENDED COUMADIN/WARFARIN INR THERAPY RANGESSTANDARD DOSE: 2.0 - 3.0 Includes: PROPHYLAXIS forvenous thrombosis, systemic embolization; TREATMENT for venous thrombosis and/or pulmonary embolus.HIGH RISK: Target INR is 2.5-3.5 for patients with mechanical heart valves.CBC W/PLT COUNT & AUTO [id number] 04:55:00 Test Item Value Reference Range Comments WHITE BLOOD CELL COUNT (BEAKER) (test zqtt=972) 4.3 K/ L 3.5-10.5 RED BLOOD CELL COUNT (BEAKER) (test exgo=832) 2.46 M/ L 4.63-6.08 HEMOGLOBIN (BEAKER) (test jobm=044) 7.9 GM/DL 13.7-17.5 HEMATOCRIT (BEAKER) (test ojmb=362) 23.3 % 40.1-51.0 MEAN CORPUSCULAR VOLUME (BEAKER) (test akkp=843) 94.7 fL 79.0-92.2 MEAN CORPUSCULAR HEMOGLOBIN (BEAKER) (test 32.1 pg 25.7-32.2 wckh=278) MEAN CORPUSCULAR HEMOGLOBIN CONC (BEAKER) (test 33.9 GM/DL 32.3-36.5 ncuc=259) RED CELL DISTRIBUTION WIDTH (BEAKER) (test 15.6 % 11.6-14.4 dlip=675) PLATELET COUNT (BEAKER) (test hcjg=597) 43 K/CU MM 150-450 MEAN PLATELET VOLUME (BEAKER) (test qqct=463) 9.6 fL 9.4-12.4 NUCLEATED RED BLOOD CELLS (BEAKER) (test 0 /100 WBC 0-0 txfh=012) NEUTROPHILS RELATIVE PERCENT (BEAKER) (test 63 % ggrk=996) LYMPHOCYTES RELATIVE PERCENT (BEAKER) (test 13 % ulwz=550) MONOCYTES RELATIVE PERCENT (BEAKER) (test 19 % llaf=043) EOSINOPHILS RELATIVE PERCENT (BEAKER) (test 5 % ogdc=272) BASOPHILS RELATIVE PERCENT (BEAKER) (test 0 % zhqv=302) NEUTROPHILS ABSOLUTE COUNT (BEAKER) (test 2.72 K/ L 1.78-5.38 hcpe=513) LYMPHOCYTES ABSOLUTE COUNT (BEAKER) (test 0.55 K/ L 1.32-3.57 fzur=640) MONOCYTES ABSOLUTE COUNT (BEAKER) (test crum=441) 0.81 K/ L 0.30-0.82 EOSINOPHILS ABSOLUTE COUNT (BEAKER) (test 0.21 K/ L 0.04-0.54 depa=253) BASOPHILS ABSOLUTE COUNT (BEAKER) (test ulzh=529) 0.01 K/ L 0.01-0.08 IMMATURE GRANULOCYTES-RELATIVE PERCENT (BEAKER) 0 % 0-1 (test ufct=4746) POCT-GLUCOSE [id number] 23:33:00 Test Item Value Reference Range Comments POC-GLUCOSE METER (BEAKER) 156 mg/dL 70-110 TESTED AT [facility] [address] [facility] (test vuti=5989) [facility] [address] POCT-GLUCOSE [id number] 18:09:00 Test Item Value Reference Range Comments POC-GLUCOSE METER (BEAKER) 170 mg/dL 70-110 TESTED AT [facility] [address] [place] [address] (test vhtm=3291) [facility] [address] POCT-GLUCOSE [id number] 12:01:00 Test Item Value Reference Range Comments POC-GLUCOSE METER (BEAKER) 181 mg/dL 70-110 TESTED AT [address] (test bovo=5755) [facility] [address] PROTHROMBIN [id number] 08:17:00 Test Item Value Reference Range Comments PROTIME (BEAKER) (test uqdj=727) 21.9 seconds 11.7-14.7 INR (BEAKER) (test koii=945) 1.9 <=5.9 RECOMMENDED COUMADIN/WARFARIN INR THERAPY RANGESSTANDARD DOSE: 2.0 - 3.0 Includes: PROPHYLAXIS forvenous thrombosis, systemic embolization; TREATMENT for venous thrombosis and/or pulmonary embolus.HIGH RISK: Target INR is 2.5-3.5 for patients with mechanical heart valves.POCT-GLUCOSE [id number] 08:07:00 Test Item Value Reference Range Comments POC-GLUCOSE METER (BEAKER) 205 mg/dL 70-110 TESTED AT [address] (test gktk=4372) [facility] [address] COMPREHENSIVE METABOLIC [id number] 07:29:00 Test Item Value Reference Range Comments TOTAL PROTEIN (BEAKER) 4.9 gm/dL 6.0-8.3 (test lbac=480) ALBUMIN (BEAKER) (test 3.3 g/dL 3.5-5.0 talf=8969) ALKALINE PHOSPHATASE 106 U/L 40-150 (BEAKER) (test chga=325) BILIRUBIN TOTAL (BEAKER) 2.6 mg/dL 0.2-1.2 (test seuz=143) SODIUM (BEAKER) (test 129 meq/L 136-145 vmhg=132) POTASSIUM (BEAKER) (test 4.9 meq/L 3.5-5.1 pjmr=871) CHLORIDE (BEAKER) (test 98 meq/L 98-107 toho=642) CO2 (BEAKER) (test 23 meq/L 22-29 dnuz=570) BLOOD UREA NITROGEN 28 mg/dL 7-21 (BEAKER) (test owdd=969) CREATININE (BEAKER) (test 2.31 mg/dL 0.57-1.25 xagw=840) GLUCOSE RANDOM (BEAKER) 172 mg/dL 70-105 (test xznk=338) CALCIUM (BEAKER) (test 8.5 mg/dL 8.4-10.2 hegw=691) AST (SGOT) (BEAKER) (test 15 U/L 5-34 oart=582) ALT (SGPT) (BEAKER) (test 6 U/L 6-55 ekku=335) EGFR (BEAKER) (test 30 mL/min/1.73 sq m ESTIMATED GFR IS NOT zgqf=4949) ACCURATE CREATININE CLEARANCE IN PREDICTING GLOMERULAR FILTRATION RATE. ESTIMATED GFR IS NOT APPLICABLE FOR DIALYSIS PATIENTS. Specimen slightly ictericCBC W/PLT COUNT & AUTO [id number] 07:11 :00 Test Item Value Reference Range Comments WHITE BLOOD CELL COUNT (BEAKER) (test akty=117) 4.5 K/ L 3.5-10.5 RED BLOOD CELL COUNT (BEAKER) (test tddp=993) 2.47 M/ L 4.63-6.08 HEMOGLOBIN (BEAKER) (test idmi=544) 7.8 GM/DL 13.7-17.5 HEMATOCRIT (BEAKER) (test guta=127) 23.3 % 40.1-51.0 MEAN CORPUSCULAR VOLUME (BEAKER) (test zgkh=985) 94.3 fL 79.0-92.2 MEAN CORPUSCULAR HEMOGLOBIN (BEAKER) (test 31.6 pg 25.7-32.2 cjwi=626) MEAN CORPUSCULAR HEMOGLOBIN CONC (BEAKER) (test 33.5 GM/DL 32.3-36.5 zkfy=452) RED CELL DISTRIBUTION WIDTH (BEAKER) (test 15.4 % 11.6-14.4 uhbf=785) PLATELET COUNT (BEAKER) (test yhwy=696) 43 K/CU MM 150-450 MEAN PLATELET VOLUME (BEAKER) (test zhbz=321) 8.7 fL 9.4-12.4 NUCLEATED RED BLOOD CELLS (BEAKER) (test 0 /100 WBC 0-0 wwta=663) NEUTROPHILS RELATIVE PERCENT (BEAKER) (test 64 % ubsm=602) LYMPHOCYTES RELATIVE PERCENT (BEAKER) (test 11 % okoq=233) MONOCYTES RELATIVE PERCENT (BEAKER) (test 20 % oftc=153) EOSINOPHILS RELATIVE PERCENT (BEAKER) (test 4 % zydd=775) BASOPHILS RELATIVE PERCENT (BEAKER) (test 0 % gstr=647) NEUTROPHILS ABSOLUTE COUNT (BEAKER) (test 2.86 K/ L 1.78-5.38 jncn=905) LYMPHOCYTES ABSOLUTE COUNT (BEAKER) (test 0.49 K/ L 1.32-3.57 gacm=307) MONOCYTES ABSOLUTE COUNT (BEAKER) (test iync=259) 0.90 K/ L 0.30-0.82 EOSINOPHILS ABSOLUTE COUNT (BEAKER) (test 0.18 K/ L 0.04-0.54 lqex=590) BASOPHILS ABSOLUTE COUNT (BEAKER) (test tcaj=909) 0.02 K/ L 0.01-0.08 IMMATURE GRANULOCYTES-RELATIVE PERCENT (BEAKER) 0 % 0-1 (test tsgu=4374) POCT-GLUCOSE [id number] 22:31:00 Test Item Value Reference Range Comments POC-GLUCOSE METER (BEAKER) 161 mg/dL 70-110 TESTED AT [address] (test wvod=8330) [facility] [address] POCT-GLUCOSE [id number] 16:31:00 Test Item Value Reference Range Comments POC-GLUCOSE METER (BEAKER) 135 mg/dL 70-110 TESTED AT [address] (test yrzu=4925) [place] [id number] POCT-GLUCOSE [id number] 12:16:00 Test Item Value Reference Range Comments POC-GLUCOSE METER (BEAKER) 144 mg/dL 70-110 TESTED AT [address] (test sogl=4125) [place] [id number] POCT-GLUCOSE [id number] 07:53:00 Test Item Value Reference Range Comments POC-GLUCOSE METER (BEAKER) 93 mg/dL 70-110 TESTED AT [address] (test gbif=9318) [place] [address] COMPREHENSIVE METABOLIC [id number] 06:55:00 Test Item Value Reference Range Comments TOTAL PROTEIN (BEAKER) 4.8 gm/dL 6.0-8.3 (test rxpi=572) ALBUMIN (BEAKER) (test 3.3 g/dL 3.5-5.0 rrut=5034) ALKALINE PHOSPHATASE 103 U/L 40-150 (BEAKER) (test ljzl=537) BILIRUBIN TOTAL (BEAKER) 2.7 mg/dL 0.2-1.2 (test vkdj=453) SODIUM (BEAKER) (test 125 meq/L 136-145 ebjw=437) POTASSIUM (BEAKER) (test 4.6 meq/L 3.5-5.1 qbtx=115) CHLORIDE (BEAKER) (test 96 meq/L 98-107 bgsq=063) CO2 (BEAKER) (test 22 meq/L 22-29 wmeq=046) BLOOD UREA NITROGEN 30 mg/dL 7-21 (BEAKER) (test tvhv=950) CREATININE (BEAKER) (test 2.01 mg/dL 0.57-1.25 mryg=013) GLUCOSE RANDOM (BEAKER) 88 mg/dL 70-105 (test gsni=886) CALCIUM (BEAKER) (test 8.5 mg/dL 8.4-10.2 iaud=524) AST (SGOT) (BEAKER) (test 17 U/L 5-34 sqbh=088) ALT (SGPT) (BEAKER) (test 7 U/L 6-55 ymkv=826) EGFR (BEAKER) (test 35 mL/min/1.73 sq m ESTIMATED GFR IS NOT rgby=3287) ACCURATE CREATININE CLEARANCE IN PREDICTING GLOMERULAR FILTRATION RATE. ESTIMATED GFR IS NOT APPLICABLE FOR DIALYSIS PATIENTS. Specimen slightly ictericPROTHROMBIN [id number] 06:10:00 Test Item Value Reference Range Comments PROTIME (BEAKER) (test vlrj=003) 23.2 seconds 11.7-14.7 INR (BEAKER) (test xvvb=662) 2.1 <=5.9 RECOMMENDED COUMADIN/WARFARIN INR THERAPY RANGESSTANDARD DOSE: 2.0 - 3.0 Includes: PROPHYLAXIS forvenous thrombosis, systemic embolization; TREATMENT for venous thrombosis and/or pulmonary embolus.HIGH RISK: Target INR is 2.5-3.5 for patients with mechanical heart valves.POCT-GLUCOSE [id number] 22:42:00 Test Item Value Reference Range Comments POC-GLUCOSE METER (BEAKER) 124 mg/dL 70-110 TESTED AT [facility] [address] (test gxrz=7542) [facility] [address] POCT-GLUCOSE [id number] 17:04:00 Test Item Value Reference Range Comments POC-GLUCOSE METER (BEAKER) 86 mg/dL 70-110 TESTED AT [facility] [address] [facility] (test psgt=4329) [facility] [address] POCT-GLUCOSE [id number] 12:08:00 Test Item Value Reference Range Comments POC-GLUCOSE METER (BEAKER) 159 mg/dL 70-110 TESTED AT [facility] [address] [facility] (test vdqs=0260) [facility] [address] [id number] 08:39:00 Test Item Value Reference Range Comments PHOSPHORUS (BEAKER) (test myiq=725) 3.9 mg/dL 2.3-4.7 [id number] 08:39:00 Test Item Value Reference Range Comments MAGNESIUM (BEAKER) (test xsqk=078) 2.1 mg/dL 1.6-2.6 COMPREHENSIVE METABOLIC [id number] 08:39:00 Test Item Value Reference Range Comments TOTAL PROTEIN (BEAKER) 5.2 gm/dL 6.0-8.3 (test ptgr=959) ALBUMIN (BEAKER) (test 3.5 g/dL 3.5-5.0 dltj=2376) ALKALINE PHOSPHATASE 110 U/L 40-150 (BEAKER) (test ptfm=872) BILIRUBIN TOTAL (BEAKER) 2.4 mg/dL 0.2-1.2 (test psgx=102) SODIUM (BEAKER) (test 122 meq/L 136-145 hdia=435) POTASSIUM (BEAKER) (test 4.5 meq/L 3.5-5.1 spil=920) CHLORIDE (BEAKER) (test 94 meq/L 98-107 wfwy=161) CO2 (BEAKER) (test 20 meq/L 22-29 khdg=643) BLOOD UREA NITROGEN 31 mg/dL 7-21 (BEAKER) (test irgh=269) CREATININE (BEAKER) (test 1.94 mg/dL 0.57-1.25 ttye=582) GLUCOSE RANDOM (BEAKER) 127 mg/dL 70-105 (test syqu=650) CALCIUM (BEAKER) (test 8.6 mg/dL 8.4-10.2 xhyx=837) AST (SGOT) (BEAKER) (test 17 U/L 5-34 ajyk=708) ALT (SGPT) (BEAKER) (test 8 U/L 6-55 xono=622) EGFR (BEAKER) (test 36 mL/min/1.73 sq m ESTIMATED GFR IS NOT remh=4645) ACCURATE CREATININE CLEARANCE IN PREDICTING GLOMERULAR FILTRATION RATE. ESTIMATED GFR IS NOT APPLICABLE FOR DIALYSIS PATIENTS. Specimen slightly ictericPOCT-GLUCOSE [id number] 07:49:00 Test Item Value Reference Range Comments POC-GLUCOSE METER (BEAKER) 132 mg/dL 70-110 TESTED AT [facility] [address] [facility] (test asvf=4870) [place] [address] CALCIUM, [id number] 06:35:00 Test Item Value Reference Range Comments CALCIUM IONIZED (BEAKER) (test qexr=330) 1.08 mmol/L 1.12-1.27 PH, BLOOD (BEAKER) (test pexl=4157) 7.39 CBC W/PLT COUNT & AUTO [id number] 05:56:00 Test Item Value Reference Range Comments WHITE BLOOD CELL COUNT (BEAKER) (test nenq=333) 4.1 K/ L 3.5-10.5 RED BLOOD CELL COUNT (BEAKER) (test yzpn=444) 2.67 M/ L 4.63-6.08 HEMOGLOBIN (BEAKER) (test uhmj=222) 8.3 GM/DL 13.7-17.5 HEMATOCRIT (BEAKER) (test hlxx=448) 24.7 % 40.1-51.0 MEAN CORPUSCULAR VOLUME (BEAKER) (test pzdu=479) 92.5 fL 79.0-92.2 MEAN CORPUSCULAR HEMOGLOBIN (BEAKER) (test 31.1 pg 25.7-32.2 sthc=603) MEAN CORPUSCULAR HEMOGLOBIN CONC (BEAKER) (test 33.6 GM/DL 32.3-36.5 pptm=258) RED CELL DISTRIBUTION WIDTH (BEAKER) (test 15.0 % 11.6-14.4 uixn=624) PLATELET COUNT (BEAKER) (test asju=151) 58 K/CU MM 150-450 MEAN PLATELET VOLUME (BEAKER) (test bkxk=334) 9.3 fL 9.4-12.4 NUCLEATED RED BLOOD CELLS (BEAKER) (test 0 /100 WBC 0-0 qwee=363) NEUTROPHILS RELATIVE PERCENT (BEAKER) (test 64 % gscn=984) LYMPHOCYTES RELATIVE PERCENT (BEAKER) (test 12 % wkxf=343) MONOCYTES RELATIVE PERCENT (BEAKER) (test 18 % swug=697) EOSINOPHILS RELATIVE PERCENT (BEAKER) (test 5 % qxtt=498) BASOPHILS RELATIVE PERCENT (BEAKER) (test 0 % cvyf=185) NEUTROPHILS ABSOLUTE COUNT (BEAKER) (test 2.63 K/ L 1.78-5.38 qtrr=084) LYMPHOCYTES ABSOLUTE COUNT (BEAKER) (test 0.51 K/ L 1.32-3.57 eyzj=014) MONOCYTES ABSOLUTE COUNT (BEAKER) (test ylzh=396) 0.74 K/ L 0.30-0.82 EOSINOPHILS ABSOLUTE COUNT (BEAKER) (test 0.21 K/ L 0.04-0.54 yxga=911) BASOPHILS ABSOLUTE COUNT (BEAKER) (test semo=380) 0.01 K/ L 0.01-0.08 IMMATURE GRANULOCYTES-RELATIVE PERCENT (BEAKER) 1 % 0-1 (test lhsu=4979) PROTHROMBIN [id number] 05:49:00 Test Item Value Reference Range Comments PROTIME (BEAKER) (test riwi=511) 20.4 seconds 11.7-14.7 INR (BEAKER) (test gpdt=767) 1.8 <=5.9 RECOMMENDED COUMADIN/WARFARIN INR THERAPY RANGESSTANDARD DOSE: 2.0 - 3.0 Includes: PROPHYLAXIS forvenous thrombosis, systemic embolization; TREATMENT for venous thrombosis and/or pulmonary embolus.HIGH RISK: Target INR is 2.5-3.5 for patients with mechanical heart valves.[id number] 22:31:00 Test Item Value Reference Range Comments SODIUM (BEAKER) (test tztj=181) 123 meq/L 136-145 POTASSIUM (BEAKER) (test pxrh=772) 4.5 meq/L 3.5-5.1 CHLORIDE (BEAKER) (test eqdh=620) 94 meq/L 98-107 CO2 (BEAKER) (test wnrq=723) 22 meq/L 22-29 Call results "at a decent hour" to [phone]-GLUCOSE [id number] 21: 48:00 Test Item Value Reference Range Comments POC-GLUCOSE METER (BEAKER) 144 mg/dL 70-110 TESTED AT [facility] [address] [facility] (test wmvy=5467) [facility] [address] [id number] 17:27:00 Test Item Value Reference Range Comments CORTISOL, TOTAL (BEAKER) (test wslz=2168) 1.9 ug/dL 3.7-19.4 [id number] 17:03:00 Test Item Value Reference Range Comments SODIUM (BEAKER) (test ioav=779) 123 meq/L 136-145 POTASSIUM (BEAKER) (test xlzd=855) 4.7 meq/L 3.5-5.1 CHLORIDE (BEAKER) (test knwd=468) 95 meq/L 98-107 CO2 (BEAKER) (test qztv=033) 21 meq/L 22-29 Call resultsPOCT-GLUCOSE [id number] 16:48:00 Test Item Value Reference Range Comments POC-GLUCOSE METER (BEAKER) 117 mg/dL 70-110 TESTED AT [address] (test acqz=4116) [place] [address] SODIUM, RANDOM [id number] 15:12:00 Test Item Value Reference Range Comments SODIUM URINE (BEAKER) (test yedb=094) < meq/L Reference Range: No NormalsCREATININE, RANDOM [id number] 15:11:00 Test Item Value Reference Range Comments CREATININE URINE (BEAKER) (test expt=537) 87.5 mg/dL Reference Range: No NormalsOSMOLALITY, [id number] 15:05:00 Test Item Value Reference Range Comments OSMOLALITY URINE (BEAKER) (test mkqu=264) 234 mOsm/kg 40-1,400 POCT-GLUCOSE [id number] 13:14:00 Test Item Value Reference Range Comments POC-GLUCOSE METER (BEAKER) 129 mg/dL 70-110 TESTED AT [address] (test cwoy=1799) [place] [address] [id number] 10:06:00 Test Item Value Reference Range Comments SODIUM (BEAKER) (test dyre=299) 120 meq/L 136-145 POTASSIUM (BEAKER) (test mbeh=137) 4.6 meq/L 3.5-5.1 CHLORIDE (BEAKER) (test vtgd=652) 93 meq/L 98-107 CO2 (BEAKER) (test fpra=541) 23 meq/L 22-29 Call [id number] 09:01:00 Test Item Value Reference Range Comments POC-GLUCOSE METER (BEAKER) 97 mg/dL 70-110 TESTED AT [facility] [address] (test dxyl=8284) [facility] [address] COMPREHENSIVE METABOLIC [id number] 08:40:00 Test Item Value Reference Range Comments TOTAL PROTEIN (BEAKER) 5.2 gm/dL 6.0-8.3 (test xnaq=577) ALBUMIN (BEAKER) (test 3.7 g/dL 3.5-5.0 fdbw=3579) ALKALINE PHOSPHATASE 104 U/L 40-150 (BEAKER) (test gjwo=895) BILIRUBIN TOTAL (BEAKER) 3.3 mg/dL 0.2-1.2 (test ptyz=641) SODIUM (BEAKER) (test 120 meq/L 136-145 ajde=811) POTASSIUM (BEAKER) (test 4.8 meq/L 3.5-5.1 ocia=005) CHLORIDE (BEAKER) (test 93 meq/L 98-107 wyss=721) CO2 (BEAKER) (test 20 meq/L 22-29 qpld=611) BLOOD UREA NITROGEN 31 mg/dL 7-21 (BEAKER) (test usuo=415) CREATININE (BEAKER) (test 1.72 mg/dL 0.57-1.25 nttl=206) GLUCOSE RANDOM (BEAKER) 99 mg/dL 70-105 (test uwle=239) CALCIUM (BEAKER) (test 8.9 mg/dL 8.4-10.2 snjb=886) AST (SGOT) (BEAKER) (test 16 U/L 5-34 cikd=950) ALT (SGPT) (BEAKER) (test < U/L 6-55 todn=029) EGFR (BEAKER) (test 42 mL/min/1.73 sq m ESTIMATED GFR IS NOT emuj=6355) ACCURATE CREATININE CLEARANCE IN PREDICTING GLOMERULAR FILTRATION RATE. ESTIMATED GFR IS NOT APPLICABLE FOR DIALYSIS PATIENTS. Specimen slightly [id number] 08:14:00 Test Item Value Reference Range Comments PHOSPHORUS (BEAKER) (test ihml=763) 3.8 mg/dL 2.3-4.7 [id number] 08:14:00 Test Item Value Reference Range Comments MAGNESIUM (BEAKER) (test cpdo=971) 2.1 mg/dL 1.6-2.6 CALCIUM, [id number] 06:56:00 Test Item Value Reference Range Comments CALCIUM IONIZED (BEAKER) (test vuwt=577) 1.12 mmol/L 1.12-1.27 PH, BLOOD (BEAKER) (test dheh=2884) 7.36 CBC W/PLT COUNT & AUTO [id number] 06:38:00 Test Item Value Reference Range Comments WHITE BLOOD CELL COUNT (BEAKER) (test nxux=803) 4.9 K/ L 3.5-10.5 RED BLOOD CELL COUNT (BEAKER) (test wqok=523) 2.69 M/ L 4.63-6.08 HEMOGLOBIN (BEAKER) (test nppi=416) 8.3 GM/DL 13.7-17.5 HEMATOCRIT (BEAKER) (test rppe=366) 24.8 % 40.1-51.0 MEAN CORPUSCULAR VOLUME (BEAKER) (test wxmv=827) 92.2 fL 79.0-92.2 MEAN CORPUSCULAR HEMOGLOBIN (BEAKER) (test 30.9 pg 25.7-32.2 tmwm=957) MEAN CORPUSCULAR HEMOGLOBIN CONC (BEAKER) (test 33.5 GM/DL 32.3-36.5 rvzp=258) RED CELL DISTRIBUTION WIDTH (BEAKER) (test 14.8 % 11.6-14.4 frli=867) PLATELET COUNT (BEAKER) (test ckqo=266) 65 K/CU MM 150-450 MEAN PLATELET VOLUME (BEAKER) (test ymlo=933) 9.1 fL 9.4-12.4 NUCLEATED RED BLOOD CELLS (BEAKER) (test 0 /100 WBC 0-0 tgtz=334) NEUTROPHILS RELATIVE PERCENT (BEAKER) (test 67 % gwqa=311) LYMPHOCYTES RELATIVE PERCENT (BEAKER) (test 10 % qwkk=084) MONOCYTES RELATIVE PERCENT (BEAKER) (test 17 % fesd=463) EOSINOPHILS RELATIVE PERCENT (BEAKER) (test 5 % cddc=088) BASOPHILS RELATIVE PERCENT (BEAKER) (test 0 % mlkw=773) NEUTROPHILS ABSOLUTE COUNT (BEAKER) (test 3.32 K/ L 1.78-5.38 mbcj=771) LYMPHOCYTES ABSOLUTE COUNT (BEAKER) (test 0.51 K/ L 1.32-3.57 mrxc=062) MONOCYTES ABSOLUTE COUNT (BEAKER) (test dmrf=350) 0.83 K/ L 0.30-0.82 EOSINOPHILS ABSOLUTE COUNT (BEAKER) (test 0.23 K/ L 0.04-0.54 wyes=097) BASOPHILS ABSOLUTE COUNT (BEAKER) (test rxxc=467) 0.02 K/ L 0.01-0.08 IMMATURE GRANULOCYTES-RELATIVE PERCENT (BEAKER) 1 % 0-1 (test lbip=8987) [id number] 06:35:00 Test Item Value Reference Range Comments PARTIAL THROMBOPLASTIN TIME (BEAKER) (test 52.6 seconds 22.5-36.0 icjs=614) PROTHROMBIN [id number] 06:34:00 Test Item Value Reference Range Comments PROTIME (BEAKER) (test eyvb=424) 21.6 seconds 11.7-14.7 INR (BEAKER) (test zlva=551) 1.9 <=5.9 RECOMMENDED COUMADIN/WARFARIN INR THERAPY RANGESSTANDARD DOSE: 2.0 - 3.0 Includes: PROPHYLAXIS forvenous thrombosis, systemic embolization; TREATMENT for venous thrombosis and/or pulmonary embolus.HIGH RISK: Target INR is 2.5-3.5 for patients with mechanical heart valves.POCT-GLUCOSE [id number] 22:00:00 Test Item Value Reference Range Comments POC-GLUCOSE METER (BEAKER) 114 mg/dL 70-110 TESTED AT [address] (test gncv=0076) [place] [address] POCT-GLUCOSE [id number] 17:57:00 Test Item Value Reference Range Comments POC-GLUCOSE METER (BEAKER) 139 mg/dL 70-110 TESTED AT [address] (test yods=9045) [place] [address] POCT-GLUCOSE [id number] 11:57:00 Test Item Value Reference Range Comments POC-GLUCOSE METER (BEAKER) 146 mg/dL 70-110 TESTED AT [address] (test pqmy=9115) [place] [address] POCT-GLUCOSE [id number] 09:16:00 Test Item Value Reference Range Comments POC-GLUCOSE METER (BEAKER) 109 mg/dL 70-110 TESTED AT [address] (test qjap=7681) [place] [address] COMPREHENSIVE METABOLIC [id number] 05:53:00 Test Item Value Reference Range Comments TOTAL PROTEIN (BEAKER) 5.2 gm/dL 6.0-8.3 (test znpp=136) ALBUMIN (BEAKER) (test 3.8 g/dL 3.5-5.0 rmns=5606) ALKALINE PHOSPHATASE 110 U/L 40-150 (BEAKER) (test duqy=520) BILIRUBIN TOTAL (BEAKER) 4.5 mg/dL 0.2-1.2 (test rtbh=079) SODIUM (BEAKER) (test 124 meq/L 136-145 akfs=117) POTASSIUM (BEAKER) (test 4.5 meq/L 3.5-5.1 enhp=828) CHLORIDE (BEAKER) (test 95 meq/L 98-107 yopw=469) CO2 (BEAKER) (test 22 meq/L 22-29 qhlo=878) BLOOD UREA NITROGEN 30 mg/dL 7-21 (BEAKER) (test qmki=058) CREATININE (BEAKER) (test 1.67 mg/dL 0.57-1.25 uqgx=214) GLUCOSE RANDOM (BEAKER) 99 mg/dL 70-105 (test sptd=495) CALCIUM (BEAKER) (test 9.0 mg/dL 8.4-10.2 fchm=325) AST (SGOT) (BEAKER) (test 16 U/L 5-34 aetg=233) ALT (SGPT) (BEAKER) (test < U/L 6-55 ccfb=087) EGFR (BEAKER) (test 43 mL/min/1.73 sq m ESTIMATED GFR IS NOT rxid=4317) ACCURATE CREATININE CLEARANCE IN PREDICTING GLOMERULAR FILTRATION RATE. ESTIMATED GFR IS NOT APPLICABLE FOR DIALYSIS PATIENTS. Specimen slightly [id number] 05:50:00 Test Item Value Reference Range Comments PHOSPHORUS (BEAKER) (test jgnp=255) 3.7 mg/dL 2.3-4.7 [id number] 05:50:00 Test Item Value Reference Range Comments MAGNESIUM (BEAKER) (test bvsa=820) 2.1 mg/dL 1.6-2.6 CBC W/PLT COUNT & AUTO [id number] 05:28:00 Test Item Value Reference Range Comments WHITE BLOOD CELL COUNT (BEAKER) (test hkgd=345) 4.0 K/ L 3.5-10.5 RED BLOOD CELL COUNT (BEAKER) (test raxt=107) 2.80 M/ L 4.63-6.08 HEMOGLOBIN (BEAKER) (test pokr=387) 8.7 GM/DL 13.7-17.5 HEMATOCRIT (BEAKER) (test bypg=856) 25.8 % 40.1-51.0 MEAN CORPUSCULAR VOLUME (BEAKER) (test pasn=799) 92.1 fL 79.0-92.2 MEAN CORPUSCULAR HEMOGLOBIN (BEAKER) (test 31.1 pg 25.7-32.2 hwmx=549) MEAN CORPUSCULAR HEMOGLOBIN CONC (BEAKER) (test 33.7 GM/DL 32.3-36.5 yqnw=318) RED CELL DISTRIBUTION WIDTH (BEAKER) (test 14.7 % 11.6-14.4 mkss=772) PLATELET COUNT (BEAKER) (test qpst=211) 42 K/CU MM 150-450 MEAN PLATELET VOLUME (BEAKER) (test somf=015) 9.8 fL 9.4-12.4 NUCLEATED RED BLOOD CELLS (BEAKER) (test 0 /100 WBC 0-0 lfgo=712) NEUTROPHILS RELATIVE PERCENT (BEAKER) (test 59 % wxgo=977) LYMPHOCYTES RELATIVE PERCENT (BEAKER) (test 15 % zklt=154) MONOCYTES RELATIVE PERCENT (BEAKER) (test 20 % vqhq=316) EOSINOPHILS RELATIVE PERCENT (BEAKER) (test 5 % shtd=112) BASOPHILS RELATIVE PERCENT (BEAKER) (test 1 % mcif=962) NEUTROPHILS ABSOLUTE COUNT (BEAKER) (test 2.37 K/ L 1.78-5.38 rufy=061) LYMPHOCYTES ABSOLUTE COUNT (BEAKER) (test 0.58 K/ L 1.32-3.57 kgyn=789) MONOCYTES ABSOLUTE COUNT (BEAKER) (test ufqy=069) 0.78 K/ L 0.30-0.82 EOSINOPHILS ABSOLUTE COUNT (BEAKER) (test 0.21 K/ L 0.04-0.54 goue=413) BASOPHILS ABSOLUTE COUNT (BEAKER) (test fkbl=392) 0.02 K/ L 0.01-0.08 IMMATURE GRANULOCYTES-RELATIVE PERCENT (BEAKER) 1 % 0-1 (test dfdc=9830) PROTHROMBIN [id number] 05:26:00 Test Item Value Reference Range Comments PROTIME (BEAKER) (test fnoj=388) 23.3 seconds 11.7-14.7 INR (BEAKER) (test gwhh=528) 2.1 <=5.9 RECOMMENDED COUMADIN/WARFARIN INR THERAPY RANGESSTANDARD DOSE: 2.0 - 3.0 Includes: PROPHYLAXIS forvenous thrombosis, systemic embolization; TREATMENT for venous thrombosis and/or pulmonary embolus.HIGH RISK: Target INR is 2.5-3.5 for patients with mechanical heart valves.CALCIUM, [id number] 05:21:00 Test Item Value Reference Range Comments CALCIUM IONIZED (BEAKER) (test vhyl=930) 1.11 mmol/L 1.12-1.27 PH, BLOOD (BEAKER) (test gpzs=7465) 7.40 POCT-GLUCOSE [id number] 21:47:00 Test Item Value Reference Range Comments POC-GLUCOSE METER (BEAKER) 129 mg/dL 70-110 TESTED AT [address] (test pmrv=7520) [facility] [address] RAD, CHEST, 1 VIEW, NON [id number] 17:18:00Reason for exam:->sobFINAL REPORT Comparison: 08/26/2018 TECHNIQUE: Single view of the chest FINDINGS: Lung volumes are low. Bibasilar densities may represent atelectasis. Otherwise lungs are clear. Cardiac silhouette is within normal limits. Soft tissues and bones are unremarkable. Signed: Rick Guerra MDReport Verified Date/Time: 09/02/2018 17:18:49 Reading Location: [facility] Mammo Reading Room CBC W/ PLT COUNT & AUTO [id number] 17:16:00 Test Item Value Reference Range Comments WHITE BLOOD CELL COUNT (BEAKER) (test ytdh=602) 3.8 K/ L 3.5-10.5 RED BLOOD CELL COUNT (BEAKER) (test jqwn=817) 2.37 M/ L 4.63-6.08 HEMOGLOBIN (BEAKER) (test qdnm=644) 7.4 GM/DL 13.7-17.5 HEMATOCRIT (BEAKER) (test sdns=583) 21.8 % 40.1-51.0 MEAN CORPUSCULAR VOLUME (BEAKER) (test ljzv=494) 92.0 fL 79.0-92.2 MEAN CORPUSCULAR HEMOGLOBIN (BEAKER) (test 31.2 pg 25.7-32.2 lpry=552) MEAN CORPUSCULAR HEMOGLOBIN CONC (BEAKER) (test 33.9 GM/DL 32.3-36.5 ybqu=884) RED CELL DISTRIBUTION WIDTH (BEAKER) (test 14.9 % 11.6-14.4 vaeo=297) PLATELET COUNT (BEAKER) (test cohe=071) 41 K/CU MM 150-450 MEAN PLATELET VOLUME (BEAKER) (test vmeu=752) 8.8 fL 9.4-12.4 NUCLEATED RED BLOOD CELLS (BEAKER) (test 0 /100 WBC 0-0 qxcw=047) NEUTROPHILS RELATIVE PERCENT (BEAKER) (test 62 % lfii=040) LYMPHOCYTES RELATIVE PERCENT (BEAKER) (test 14 % yxwj=372) MONOCYTES RELATIVE PERCENT (BEAKER) (test 18 % aore=888) EOSINOPHILS RELATIVE PERCENT (BEAKER) (test 4 % yhjp=080) BASOPHILS RELATIVE PERCENT (BEAKER) (test 0 % xdmj=617) NEUTROPHILS ABSOLUTE COUNT (BEAKER) (test 2.39 K/ L 1.78-5.38 oblh=892) LYMPHOCYTES ABSOLUTE COUNT (BEAKER) (test 0.55 K/ L 1.32-3.57 retj=486) MONOCYTES ABSOLUTE COUNT (BEAKER) (test ppgz=532) 0.69 K/ L 0.30-0.82 EOSINOPHILS ABSOLUTE COUNT (BEAKER) (test 0.17 K/ L 0.04-0.54 mytx=424) BASOPHILS ABSOLUTE COUNT (BEAKER) (test hdmv=535) 0.01 K/ L 0.01-0.08 IMMATURE GRANULOCYTES-RELATIVE PERCENT (BEAKER) 1 % 0-1 (test irex=0300) POCT-BLOOD GASES, [id number] 16:58:00 Test Item Value Reference Range Comments TEMP, CELSIUS-POC (BEAKER) 37.0 (test skuk=2218) FIO2-POC (BEAKER) (test TESTED AT [facility] [address] [facility] xqzc=3866) [place] [address] PH, ARTERIAL-POC (BEAKER) 7.412 7.350-7.450 (test yljl=3095) PCO2, ARTERIAL-POC (BEAKER) 35.5 mm Hg 35.0-45.0 (test sarn=0870) PO2, ARTERIAL-POC (BEAKER) 69.0 mm Hg 80.0-90.0 (test oyyj=8266) SO2, ARTERIAL-POC (BEAKER) 94.0 % 96.0-97.0 (test zwsv=7518) HCO3, ARTERIAL-POC (BEAKER) 22.6 meq/L 21.0-29.0 (test shtd=1416) BASE EXCESS, ARTERIAL-POC -2.0 meq/L -2.0-3.0 (BEAKER) (test nhbd=8483) [id number] 16:58:00 Test Item Value Reference Range Comments POC-SODIUM (BEAKER) (test 125 meq/L 135-148 TESTED AT [address] uflh=6308) [place] [address] [id number] 16:58:00 Test Item Value Reference Range Comments POC-POTASSIUM (BEAKER) (test 4.2 meq/L 3.6-5.5 TESTED AT [address] ogrp=6910) [place] [address] [id number] 16:58:00 Test Item Value Reference Range Comments POC-GLUCOSE (BEAKER) (test 128 mg/dL 70-110 TESTED AT [address] ihyr=0688) [place] [address] POCT-CALCIUM [id number] 16:58:00 Test Item Value Reference Range Comments POC-CALCIUM IONIZED (BEAKER) 1.24 mmol/L 1.12-1.27 TESTED AT [address] (test ohlw=0581) [place] [address] [id number] 16:58:00 Test Item Value Reference Range Comments POC-HEMATOCRIT (BEAKER) (test 21 % 40-50 TESTED AT [address] aduz=6085) [place] [address] [id number] 16:58:00 Test Item Value Reference Range Comments POC-HEMOGLOBIN (BEAKER) 7.1 g/dL 13.0-16.8 TESTED AT [address] (test hfpe=5436) [facility] [id number] AT [address] [address] POCT-LACTIC ACID, [id number] 16:58:00 Test Item Value Reference Range Comments POC-LACTIC ACID, ARTERIAL 1.0 mmol/L 0.4-1.3 TESTED AT [address] (BEAKER) (test xgla=9934) [facility] [address] POCT-GLUCOSE [id number] 11:43:00 Test Item Value Reference Range Comments POC-GLUCOSE METER (BEAKER) 169 mg/dL 70-110 TESTED AT [address] (test klwv=1379) [facility] [address] POCT-GLUCOSE [id number] 08:23:00 Test Item Value Reference Range Comments POC-GLUCOSE METER (BEAKER) 128 mg/dL 70-110 TESTED AT [address] (test ptpv=8295) [facility] [address] [id number] 05:16:00 Test Item Value Reference Range Comments PHOSPHORUS (BEAKER) (test mueb=512) 3.8 mg/dL 2.3-4.7 [id number] 05:16:00 Test Item Value Reference Range Comments MAGNESIUM (BEAKER) (test phfz=154) 2.0 mg/dL 1.6-2.6 COMPREHENSIVE METABOLIC [id number] 05:16:00 Test Item Value Reference Range Comments TOTAL PROTEIN (BEAKER) 5.0 gm/dL 6.0-8.3 (test tyod=768) ALBUMIN (BEAKER) (test 3.5 g/dL 3.5-5.0 yazd=1607) ALKALINE PHOSPHATASE 124 U/L 40-150 (BEAKER) (test eydx=587) BILIRUBIN TOTAL (BEAKER) 2.2 mg/dL 0.2-1.2 (test jxoc=643) SODIUM (BEAKER) (test 125 meq/L 136-145 fpns=600) POTASSIUM (BEAKER) (test 4.4 meq/L 3.5-5.1 znuu=046) CHLORIDE (BEAKER) (test 96 meq/L 98-107 xkgh=933) CO2 (BEAKER) (test 23 meq/L 22-29 dztv=571) BLOOD UREA NITROGEN 27 mg/dL 7-21 (BEAKER) (test edza=139) CREATININE (BEAKER) (test 1.74 mg/dL 0.57-1.25 ubfl=284) GLUCOSE RANDOM (BEAKER) 112 mg/dL 70-105 (test hetf=379) CALCIUM (BEAKER) (test 8.8 mg/dL 8.4-10.2 cecp=819) AST (SGOT) (BEAKER) (test 17 U/L 5-34 cqtl=412) ALT (SGPT) (BEAKER) (test 7 U/L 6-55 eloa=391) EGFR (BEAKER) (test 41 mL/min/1.73 sq m ESTIMATED GFR IS NOT vbju=9283) ACCURATE CREATININE CLEARANCE IN PREDICTING GLOMERULAR FILTRATION RATE. ESTIMATED GFR IS NOT APPLICABLE FOR DIALYSIS PATIENTS. CALCIUM, [id number] 05:13:00 Test Item Value Reference Range Comments CALCIUM IONIZED (BEAKER) (test ezhs=066) 1.10 mmol/L 1.12-1.27 PH, BLOOD (BEAKER) (test koqs=4415) 7.44 CBC W/PLT COUNT & AUTO [id number] 05:02:00 Test Item Value Reference Range Comments WHITE BLOOD CELL COUNT (BEAKER) (test ovtn=088) 3.2 K/ L 3.5-10.5 RED BLOOD CELL COUNT (BEAKER) (test bfau=841) 2.23 M/ L 4.63-6.08 HEMOGLOBIN (BEAKER) (test yrqc=189) 6.9 GM/DL 13.7-17.5 HEMATOCRIT (BEAKER) (test sxua=524) 20.8 % 40.1-51.0 MEAN CORPUSCULAR VOLUME (BEAKER) (test brcy=306) 93.3 fL 79.0-92.2 MEAN CORPUSCULAR HEMOGLOBIN (BEAKER) (test 30.9 pg 25.7-32.2 xafq=990) MEAN CORPUSCULAR HEMOGLOBIN CONC (BEAKER) (test 33.2 GM/DL 32.3-36.5 jdfu=483) RED CELL DISTRIBUTION WIDTH (BEAKER) (test 14.6 % 11.6-14.4 zzry=183) PLATELET COUNT (BEAKER) (test dmum=174) 43 K/CU MM 150-450 MEAN PLATELET VOLUME (BEAKER) (test rstx=773) 9.3 fL 9.4-12.4 NUCLEATED RED BLOOD CELLS (BEAKER) (test 0 /100 WBC 0-0 sqsq=977) NEUTROPHILS RELATIVE PERCENT (BEAKER) (test 58 % puin=056) LYMPHOCYTES RELATIVE PERCENT (BEAKER) (test 17 % myvs=756) MONOCYTES RELATIVE PERCENT (BEAKER) (test 18 % fqcu=371) EOSINOPHILS RELATIVE PERCENT (BEAKER) (test 5 % txqd=456) BASOPHILS RELATIVE PERCENT (BEAKER) (test 1 % jlzq=213) NEUTROPHILS ABSOLUTE COUNT (BEAKER) (test 1.84 K/ L 1.78-5.38 iszw=526) LYMPHOCYTES ABSOLUTE COUNT (BEAKER) (test 0.54 K/ L 1.32-3.57 udvr=573) MONOCYTES ABSOLUTE COUNT (BEAKER) (test ezja=232) 0.56 K/ L 0.30-0.82 EOSINOPHILS ABSOLUTE COUNT (BEAKER) (test 0.15 K/ L 0.04-0.54 pvey=570) BASOPHILS ABSOLUTE COUNT (BEAKER) (test rhwc=763) 0.02 K/ L 0.01-0.08 IMMATURE GRANULOCYTES-RELATIVE PERCENT (BEAKER) 1 % 0-1 (test bdcb=6514) PROTHROMBIN [id number] 05:00:00 Test Item Value Reference Range Comments PROTIME (BEAKER) (test rewy=468) 22.7 seconds 11.7-14.7 INR (BEAKER) (test cghx=911) 2.0 <=5.9 RECOMMENDED COUMADIN/WARFARIN INR THERAPY RANGESSTANDARD DOSE: 2.0 - 3.0 Includes: PROPHYLAXIS forvenous thrombosis, systemic embolization; TREATMENT for venous thrombosis and/or pulmonary embolus.HIGH RISK: Target INR is 2.5-3.5 for patients with mechanical heart valves.POCT-GLUCOSE [id number] 22:18:00 Test Item Value Reference Range Comments POC-GLUCOSE METER (BEAKER) 194 mg/dL 70-110 TESTED AT [address] (test wiwb=0921) [place] [address] POCT-GLUCOSE [id number] 17:33:00 Test Item Value Reference Range Comments POC-GLUCOSE METER (BEAKER) 160 mg/dL 70-110 TESTED AT [address] (test xcik=2871) [place] [id number] POCT-GLUCOSE [id number] 11:56:00 Test Item Value Reference Range Comments POC-GLUCOSE METER (BEAKER) 151 mg/dL 70-110 TESTED AT [facility] [address] (test bbpb=9845) [facility] [address] URINALYSIS W/ [id number] 09:52:00 Test Item Value Reference Range Comments COLOR (BEAKER) (test elgm=423) Yellow CLARITY (BEAKER) (test dlhl=918) Clear SPECIFIC GRAVITY UA (BEAKER) (test 1.014 1.001-1.035 tsqh=090) PH UA (BEAKER) (test nclb=906) 5.5 5.0-8.0 PROTEIN UA (BEAKER) (test cpmv=743) Negative Negative GLUCOSE UA (BEAKER) (test szcj=413) Negative Negative KETONES UA (BEAKER) (test gnnv=299) Negative Negative BILIRUBIN UA (BEAKER) (test svur=470) Negative Negative BLOOD UA (BEAKER) (test ovlz=166) Negative Negative NITRITE UA (BEAKER) (test zgdf=526) Negative Negative LEUKOCYTE ESTERASE UA (BEAKER) (test Negative Negative pfsl=831) UROBILINOGEN UA (BEAKER) (test dmdx=580) 0.2 mg/dL 0.2-1.0 RBC UA (BEAKER) (test diqo=103) 1 /HPF WBC UA (BEAKER) (test uurp=215) 4 /HPF BACTERIA (BEAKER) (test aqhx=613) Rare MUCUS (BEAKER) (test zcwh=4151) Rare HYALINE CASTS (BEAKER) (test qlak=088) 19 /LPF YEAST (BEAKER) (test tfsq=2373) Rare SOURCE(BEAKER) (test szst=0368) Urine, Clean Catch SODIUM, RANDOM [id number] 09:09:00 Test Item Value Reference Range Comments SODIUM URINE (BEAKER) (test dind=673) < meq/L Reference Range: No NormalsCREATININE, RANDOM [id number] 09:04:00 Test Item Value Reference Range Comments CREATININE URINE (BEAKER) (test xzas=335) 149.6 mg/dL Reference Range: No NormalsPOCT-GLUCOSE [id number] 08:12:00 Test Item Value Reference Range Comments POC-GLUCOSE METER (BEAKER) 106 mg/dL 70-110 TESTED AT [facility] [address] (test cfhw=1197) [place] [address] CBC W/PLT COUNT & AUTO [id number] 06:56:00 Test Item Value Reference Range Comments WHITE BLOOD CELL COUNT (BEAKER) (test nwrf=552) 4.5 K/ L 3.5-10.5 RED BLOOD CELL COUNT (BEAKER) (test lcnz=069) 2.22 M/ L 4.63-6.08 HEMOGLOBIN (BEAKER) (test rjne=860) 7.0 GM/DL 13.7-17.5 HEMATOCRIT (BEAKER) (test jlts=444) 20.6 % 40.1-51.0 MEAN CORPUSCULAR VOLUME (BEAKER) (test kpel=634) 92.8 fL 79.0-92.2 MEAN CORPUSCULAR HEMOGLOBIN (BEAKER) (test 31.5 pg 25.7-32.2 loym=221) MEAN CORPUSCULAR HEMOGLOBIN CONC (BEAKER) (test 34.0 GM/DL 32.3-36.5 vsxw=099) RED CELL DISTRIBUTION WIDTH (BEAKER) (test 14.7 % 11.6-14.4 cwrm=171) PLATELET COUNT (BEAKER) (test qict=714) 44 K/CU MM 150-450 MEAN PLATELET VOLUME (BEAKER) (test oubs=665) 9.0 fL 9.4-12.4 NUCLEATED RED BLOOD CELLS (BEAKER) (test 0 /100 WBC 0-0 tvgh=652) NEUTROPHILS RELATIVE PERCENT (BEAKER) (test 69 % ljss=568) LYMPHOCYTES RELATIVE PERCENT (BEAKER) (test 12 % kipb=317) MONOCYTES RELATIVE PERCENT (BEAKER) (test 14 % pghd=070) EOSINOPHILS RELATIVE PERCENT (BEAKER) (test 4 % exlq=562) BASOPHILS RELATIVE PERCENT (BEAKER) (test 0 % mzlv=149) NEUTROPHILS ABSOLUTE COUNT (BEAKER) (test 3.12 K/ L 1.78-5.38 bwbc=858) LYMPHOCYTES ABSOLUTE COUNT (BEAKER) (test 0.55 K/ L 1.32-3.57 aftg=756) MONOCYTES ABSOLUTE COUNT (BEAKER) (test jkln=872) 0.62 K/ L 0.30-0.82 EOSINOPHILS ABSOLUTE COUNT (BEAKER) (test 0.18 K/ L 0.04-0.54 cugz=341) BASOPHILS ABSOLUTE COUNT (BEAKER) (test qqux=952) 0.00 K/ L 0.01-0.08 IMMATURE GRANULOCYTES-RELATIVE PERCENT (BEAKER) 1 % 0-1 (test socu=0591) [id number] 06:41:00 Test Item Value Reference Range Comments PHOSPHORUS (BEAKER) (test rdxk=984) 2.7 mg/dL 2.3-4.7 [id number] 06:41:00 Test Item Value Reference Range Comments MAGNESIUM (BEAKER) (test sqzy=353) 2.0 mg/dL 1.6-2.6 COMPREHENSIVE METABOLIC [id number] 06:41:00 Test Item Value Reference Range Comments TOTAL PROTEIN (BEAKER) 4.9 gm/dL 6.0-8.3 (test bphq=263) ALBUMIN (BEAKER) (test 3.1 g/dL 3.5-5.0 oujs=0829) ALKALINE PHOSPHATASE 148 U/L 40-150 (BEAKER) (test cwgt=646) BILIRUBIN TOTAL (BEAKER) 1.9 mg/dL 0.2-1.2 (test xbbi=916) SODIUM (BEAKER) (test 123 meq/L 136-145 utuv=489) POTASSIUM (BEAKER) (test 3.9 meq/L 3.5-5.1 qhdd=820) CHLORIDE (BEAKER) (test 94 meq/L 98-107 vkfe=070) CO2 (BEAKER) (test 22 meq/L 22-29 ncdq=523) BLOOD UREA NITROGEN 24 mg/dL 7-21 (BEAKER) (test pzaa=467) CREATININE (BEAKER) (test 1.55 mg/dL 0.57-1.25 waov=957) GLUCOSE RANDOM (BEAKER) 95 mg/dL 70-105 (test zsnr=355) CALCIUM (BEAKER) (test 8.5 mg/dL 8.4-10.2 slcg=563) AST (SGOT) (BEAKER) (test 18 U/L 5-34 hlcv=537) ALT (SGPT) (BEAKER) (test 10 U/L 6-55 lflb=760) EGFR (BEAKER) (test 47 mL/min/1.73 sq m ESTIMATED GFR IS NOT wbbw=1662) ACCURATE CREATININE CLEARANCE IN PREDICTING GLOMERULAR FILTRATION RATE. ESTIMATED GFR IS NOT APPLICABLE FOR DIALYSIS PATIENTS. BILIRUBIN, [id number] 06:41:00 Test Item Value Reference Range Comments BILIRUBIN DIRECT (BEAKER) (test obov=507) 1.3 mg/dL 0.1-0.5 PROTHROMBIN [id number] 06:26:00 Test Item Value Reference Range Comments PROTIME (BEAKER) (test rkct=695) 23.3 seconds 11.7-14.7 INR (BEAKER) (test hprk=614) 2.1 <=5.9 RECOMMENDED COUMADIN/WARFARIN INR THERAPY RANGESSTANDARD DOSE: 2.0 - 3.0 Includes: PROPHYLAXIS forvenous thrombosis, systemic embolization; TREATMENT for venous thrombosis and/or pulmonary embolus.HIGH RISK: Target INR is 2.5-3.5 for patients with mechanical heart valves.POCT-GLUCOSE [id number] 22:17:00 Test Item Value Reference Range Comments POC-GLUCOSE METER (BEAKER) 136 mg/dL 70-110 TESTED AT [facility] [address] [facility] (test yivs=7874) [place] [address] POCT-GLUCOSE [id number] 18:08:00 Test Item Value Reference Range Comments POC-GLUCOSE METER (BEAKER) 126 mg/dL 70-110 TESTED AT [address] (test soem=0709) [place] [address] U/S, [id number] 17:47:00Reason for exam:->ascitesFINAL REPORT Indication: Ascites. Technique: Ultrasound guided paracentesis. Findings:Preliminary ultrasound confirms ascites. A safe window was identified in the left lower quadrant. The procedure was explained to the patient and informed consent was signed. The skin was markedand prepped in standard sterile fashion. Lidocaine was used for local anesthesia. A 5 [place] needle catheter system was advanced into the peritoneal space. 5500 cc slightly cloudy yellow fluid was taken off. Patient tolerated the procedure well. Impression: Ultrasound guided paracentesis. Signed: Aristeo Xion[place] Verified Date/Time: 08/31/2018 17:47:54 Reading Location: [address] Ultrasound Reading Room POCT-GLUCOSE [id number] 11:52:00 Test Item Value Reference Range Comments POC-GLUCOSE METER (BEAKER) 151 mg/dL 70-110 TESTED AT [facility] [address] [facility] (test mjzy=7158) [facility] [address] POCT-GLUCOSE [id number] 08:19:00 Test Item Value Reference Range Comments POC-GLUCOSE METER (BEAKER) 129 mg/dL 70-110 TESTED AT [address] (test hrdr=9607) [facility] [address] [id number] 05:12:00 Test Item Value Reference Range Comments PHOSPHORUS (BEAKER) (test buon=223) 2.9 mg/dL 2.3-4.7 [id number] 05:12:00 Test Item Value Reference Range Comments MAGNESIUM (BEAKER) (test wvnn=639) 2.0 mg/dL 1.6-2.6 COMPREHENSIVE METABOLIC [id number] 05:12:00 Test Item Value Reference Range Comments TOTAL PROTEIN (BEAKER) 5.4 gm/dL 6.0-8.3 (test jbne=049) ALBUMIN (BEAKER) (test 3.2 g/dL 3.5-5.0 inmv=2580) ALKALINE PHOSPHATASE 159 U/L 40-150 (BEAKER) (test aonm=419) BILIRUBIN TOTAL (BEAKER) 1.8 mg/dL 0.2-1.2 (test wqcg=199) SODIUM (BEAKER) (test 125 meq/L 136-145 lqen=697) POTASSIUM (BEAKER) (test 4.3 meq/L 3.5-5.1 peih=842) CHLORIDE (BEAKER) (test 97 meq/L 98-107 uuex=520) CO2 (BEAKER) (test 22 meq/L 22-29 yqjj=451) BLOOD UREA NITROGEN 21 mg/dL 7-21 (BEAKER) (test phpa=573) CREATININE (BEAKER) (test 1.34 mg/dL 0.57-1.25 hokv=233) GLUCOSE RANDOM (BEAKER) 113 mg/dL 70-105 (test cxum=257) CALCIUM (BEAKER) (test 8.8 mg/dL 8.4-10.2 qcjt=213) AST (SGOT) (BEAKER) (test 22 U/L 5-34 gojb=742) ALT (SGPT) (BEAKER) (test 11 U/L 6-55 lsww=807) EGFR (BEAKER) (test 56 mL/min/1.73 sq m ESTIMATED GFR IS NOT vwqn=3312) ACCURATE CREATININE CLEARANCE IN PREDICTING GLOMERULAR FILTRATION RATE. ESTIMATED GFR IS NOT APPLICABLE FOR DIALYSIS PATIENTS. BILIRUBIN, [id number] 05:12:00 Test Item Value Reference Range Comments BILIRUBIN DIRECT (BEAKER) (test fffn=970) 1.2 mg/dL 0.1-0.5 PROTHROMBIN [id number] 04:48:00 Test Item Value Reference Range Comments PROTIME (BEAKER) (test omgq=387) 22.3 seconds 11.7-14.7 INR (BEAKER) (test rboz=384) 2.0 <=5.9 RECOMMENDED COUMADIN/WARFARIN INR THERAPY RANGESSTANDARD DOSE: 2.0 - 3.0 Includes: PROPHYLAXIS forvenous thrombosis, systemic embolization; TREATMENT for venous thrombosis and/or pulmonary embolus.HIGH RISK: Target INR is 2.5-3.5 for patients with mechanical heart valves.CBC W/PLT COUNT & AUTO [id number] 04:33:00 Test Item Value Reference Range Comments WHITE BLOOD CELL COUNT (BEAKER) (test qxcj=768) 5.5 K/ L 3.5-10.5 RED BLOOD CELL COUNT (BEAKER) (test vbns=184) 2.58 M/ L 4.63-6.08 HEMOGLOBIN (BEAKER) (test nynp=760) 7.9 GM/DL 13.7-17.5 HEMATOCRIT (BEAKER) (test lipi=103) 24.3 % 40.1-51.0 MEAN CORPUSCULAR VOLUME (BEAKER) (test skhc=086) 94.2 fL 79.0-92.2 MEAN CORPUSCULAR HEMOGLOBIN (BEAKER) (test 30.6 pg 25.7-32.2 fkpl=824) MEAN CORPUSCULAR HEMOGLOBIN CONC (BEAKER) (test 32.5 GM/DL 32.3-36.5 xiwe=921) RED CELL DISTRIBUTION WIDTH (BEAKER) (test 15.0 % 11.6-14.4 zilg=455) PLATELET COUNT (BEAKER) (test aqae=229) 57 K/CU MM 150-450 MEAN PLATELET VOLUME (BEAKER) (test usam=183) 9.2 fL 9.4-12.4 NUCLEATED RED BLOOD CELLS (BEAKER) (test 0 /100 WBC 0-0 fiom=558) NEUTROPHILS RELATIVE PERCENT (BEAKER) (test 70 % yixt=577) LYMPHOCYTES RELATIVE PERCENT (BEAKER) (test 12 % tkdd=155) MONOCYTES RELATIVE PERCENT (BEAKER) (test 14 % agoj=686) EOSINOPHILS RELATIVE PERCENT (BEAKER) (test 4 % xlvq=710) BASOPHILS RELATIVE PERCENT (BEAKER) (test 0 % crrk=600) NEUTROPHILS ABSOLUTE COUNT (BEAKER) (test 3.85 K/ L 1.78-5.38 cizr=056) LYMPHOCYTES ABSOLUTE COUNT (BEAKER) (test 0.67 K/ L 1.32-3.57 rhrh=295) MONOCYTES ABSOLUTE COUNT (BEAKER) (test fzcl=005) 0.75 K/ L 0.30-0.82 EOSINOPHILS ABSOLUTE COUNT (BEAKER) (test 0.22 K/ L 0.04-0.54 ewxp=987) BASOPHILS ABSOLUTE COUNT (BEAKER) (test klxi=077) 0.01 K/ L 0.01-0.08 IMMATURE GRANULOCYTES-RELATIVE PERCENT (BEAKER) 1 % 0-1 (test elka=4542) BLOOD [id number] 23:01:00 Test Item Value Reference Range Comments CULTURE (BEAKER) (test afuo=6195) No growth in 5 days POCT-GLUCOSE [id number] 22:15:00 Test Item Value Reference Range Comments POC-GLUCOSE METER (BEAKER) 133 mg/dL 70-110 TESTED AT [address] (test qdwd=9748) [facility] [address] POCT-GLUCOSE [id number] 17:42:00 Test Item Value Reference Range Comments POC-GLUCOSE METER (BEAKER) 139 mg/dL 70-110 TESTED AT [address] (test bsdx=2423) [facility] [address] POCT-GLUCOSE [id number] 12:02:00 Test Item Value Reference Range Comments POC-GLUCOSE METER (BEAKER) 152 mg/dL 70-110 TESTED AT [address] (test ruwe=3417) [place] [id number] POCT-GLUCOSE [id number] 09:04:00 Test Item Value Reference Range Comments POC-GLUCOSE METER (BEAKER) 130 mg/dL 70-110 TESTED AT [facility] [address] (test sdgj=4887) [facility] [address] CALCIUM, [id number] 07:27:00 Test Item Value Reference Range Comments CALCIUM IONIZED (BEAKER) (test uioj=092) 1.10 mmol/L 1.12-1.27 PH, BLOOD (BEAKER) (test sxuq=3811) 7.42 [id number] 06:46:00 Test Item Value Reference Range Comments PHOSPHORUS (BEAKER) (test lxsc=809) 3.0 mg/dL 2.3-4.7 [id number] 06:46:00 Test Item Value Reference Range Comments MAGNESIUM (BEAKER) (test mrek=357) 2.0 mg/dL 1.6-2.6 COMPREHENSIVE METABOLIC [id number] 06:46:00 Test Item Value Reference Range Comments TOTAL PROTEIN (BEAKER) 4.9 gm/dL 6.0-8.3 (test ykan=415) ALBUMIN (BEAKER) (test 3.0 g/dL 3.5-5.0 niun=1126) ALKALINE PHOSPHATASE 145 U/L 40-150 (BEAKER) (test upqv=075) BILIRUBIN TOTAL (BEAKER) 1.9 mg/dL 0.2-1.2 (test hmjm=656) SODIUM (BEAKER) (test 127 meq/L 136-145 sxhs=118) POTASSIUM (BEAKER) (test 3.7 meq/L 3.5-5.1 kias=385) CHLORIDE (BEAKER) (test 99 meq/L 98-107 nsut=957) CO2 (BEAKER) (test 21 meq/L 22-29 xjoe=864) BLOOD UREA NITROGEN 20 mg/dL 7-21 (BEAKER) (test spst=337) CREATININE (BEAKER) (test 1.21 mg/dL 0.57-1.25 fpdl=820) GLUCOSE RANDOM (BEAKER) 108 mg/dL 70-105 (test hyrb=841) CALCIUM (BEAKER) (test 8.9 mg/dL 8.4-10.2 mzxi=991) AST (SGOT) (BEAKER) (test 22 U/L 5-34 nkbi=620) ALT (SGPT) (BEAKER) (test 9 U/L 6-55 vhil=435) EGFR (BEAKER) (test 63 mL/min/1.73 sq m ESTIMATED GFR IS NOT kakn=9053) ACCURATE CREATININE CLEARANCE IN PREDICTING GLOMERULAR FILTRATION RATE. ESTIMATED GFR IS NOT APPLICABLE FOR DIALYSIS PATIENTS. BASIC METABOLIC [id number] 06:46:00 Test Item Value Reference Range Comments SODIUM (BEAKER) (test 127 meq/L 136-145 icuy=805) POTASSIUM (BEAKER) (test 3.7 meq/L 3.5-5.1 xyww=686) CHLORIDE (BEAKER) (test 99 meq/L 98-107 wiot=931) CO2 (BEAKER) (test 21 meq/L 22-29 mnlc=780) BLOOD UREA NITROGEN 20 mg/dL 7-21 (BEAKER) (test ekww=743) CREATININE (BEAKER) (test 1.21 mg/dL 0.57-1.25 lhtt=768) GLUCOSE RANDOM (BEAKER) 108 mg/dL 70-105 (test cqtx=998) CALCIUM (BEAKER) (test 8.9 mg/dL 8.4-10.2 cayq=661) EGFR (BEAKER) (test 63 mL/min/1.73 sq m ESTIMATED GFR IS NOT cjgt=0311) ACCURATE CREATININE CLEARANCE IN PREDICTING GLOMERULAR FILTRATION RATE. ESTIMATED GFR IS NOT APPLICABLE FOR DIALYSIS PATIENTS. BILIRUBIN, [id number] 06:46:00 Test Item Value Reference Range Comments BILIRUBIN DIRECT (BEAKER) (test bjpq=967) 1.2 mg/dL 0.1-0.5 CBC W/PLT COUNT & AUTO [id number] 06:30:00 Test Item Value Reference Range Comments WHITE BLOOD CELL COUNT (BEAKER) (test wbpz=542) 3.7 K/ L 3.5-10.5 RED BLOOD CELL COUNT (BEAKER) (test ksmd=069) 2.35 M/ L 4.63-6.08 HEMOGLOBIN (BEAKER) (test cnpr=858) 7.4 GM/DL 13.7-17.5 HEMATOCRIT (BEAKER) (test lmom=508) 22.1 % 40.1-51.0 MEAN CORPUSCULAR VOLUME (BEAKER) (test ckkj=309) 94.0 fL 79.0-92.2 MEAN CORPUSCULAR HEMOGLOBIN (BEAKER) (test 31.5 pg 25.7-32.2 aahr=205) MEAN CORPUSCULAR HEMOGLOBIN CONC (BEAKER) (test 33.5 GM/DL 32.3-36.5 tkyn=896) RED CELL DISTRIBUTION WIDTH (BEAKER) (test 14.8 % 11.6-14.4 wlqj=978) PLATELET COUNT (BEAKER) (test tjae=451) 45 K/CU MM 150-450 MEAN PLATELET VOLUME (BEAKER) (test hedb=664) 8.8 fL 9.4-12.4 NUCLEATED RED BLOOD CELLS (BEAKER) (test 0 /100 WBC 0-0 ginm=929) NEUTROPHILS RELATIVE PERCENT (BEAKER) (test 61 % baha=476) LYMPHOCYTES RELATIVE PERCENT (BEAKER) (test 14 % nhtf=162) MONOCYTES RELATIVE PERCENT (BEAKER) (test 18 % yssw=550) EOSINOPHILS RELATIVE PERCENT (BEAKER) (test 6 % aoxi=397) BASOPHILS RELATIVE PERCENT (BEAKER) (test 0 % texc=160) NEUTROPHILS ABSOLUTE COUNT (BEAKER) (test 2.25 K/ L 1.78-5.38 bofa=298) LYMPHOCYTES ABSOLUTE COUNT (BEAKER) (test 0.53 K/ L 1.32-3.57 oend=165) MONOCYTES ABSOLUTE COUNT (BEAKER) (test hzsh=788) 0.67 K/ L 0.30-0.82 EOSINOPHILS ABSOLUTE COUNT (BEAKER) (test 0.23 K/ L 0.04-0.54 keve=876) BASOPHILS ABSOLUTE COUNT (BEAKER) (test gnqa=188) 0.01 K/ L 0.01-0.08 IMMATURE GRANULOCYTES-RELATIVE PERCENT (BEAKER) 1 % 0-1 (test vyct=0009) PROTHROMBIN [id number] 06:07:00 Test Item Value Reference Range Comments PROTIME (BEAKER) (test otfs=911) 21.4 seconds 11.7-14.7 INR (BEAKER) (test khvd=242) 1.9 <=5.9 RECOMMENDED COUMADIN/WARFARIN INR THERAPY RANGESSTANDARD DOSE: 2.0 - 3.0 Includes: PROPHYLAXIS forvenous thrombosis, systemic embolization; TREATMENT for venous thrombosis and/or pulmonary embolus.HIGH RISK: Target INR is 2.5-3.5 for patients with mechanical heart valves.POCT-GLUCOSE [id number] 23:37:00 Test Item Value Reference Range Comments POC-GLUCOSE METER (BEAKER) 154 mg/dL 70-110 TESTED AT [address] (test gqaw=5354) [place] [address] BASIC METABOLIC [id number] 20:17:00 Test Item Value Reference Range Comments SODIUM (BEAKER) (test 125 meq/L 136-145 hxhc=930) POTASSIUM (BEAKER) (test 4.0 meq/L 3.5-5.1 dgob=182) CHLORIDE (BEAKER) (test 94 meq/L 98-107 ulsc=435) CO2 (BEAKER) (test 25 meq/L 22-29 xqow=679) BLOOD UREA NITROGEN 20 mg/dL 7-21 (BEAKER) (test fiuu=631) CREATININE (BEAKER) (test 1.34 mg/dL 0.57-1.25 xtmz=227) GLUCOSE RANDOM (BEAKER) 115 mg/dL 70-105 (test ypcj=720) CALCIUM (BEAKER) (test 8.9 mg/dL 8.4-10.2 feca=499) EGFR (BEAKER) (test 56 mL/min/1.73 sq m ESTIMATED GFR IS NOT wiub=5849) ACCURATE CREATININE CLEARANCE IN PREDICTING GLOMERULAR FILTRATION RATE. ESTIMATED GFR IS NOT APPLICABLE FOR DIALYSIS PATIENTS. POCT-GLUCOSE [id number] 17:59:00 Test Item Value Reference Range Comments POC-GLUCOSE METER (BEAKER) 161 mg/dL 70-110 TESTED AT [address] (test akvh=7483) [place] [address] BODY FLUID CULTURE + GRAM [id number] 13:31:00 Test Item Value Reference Range Comments CULTURE (BEAKER) (test hmvh=5677) No growth GRAM STAIN RESULT (BEAKER) (test No organisms seen pzcz=9089) GRAM STAIN RESULT (BEAKER) (test No White blood cells seen mjoq=42888) POCT-GLUCOSE [id number] 12:31:00 Test Item Value Reference Range Comments POC-GLUCOSE METER (BEAKER) 114 mg/dL 70-110 TESTED AT [address] (test cxzh=0558) [place] [address] BASIC METABOLIC [id number] 11:33:00 Test Item Value Reference Range Comments SODIUM (BEAKER) (test 124 meq/L 136-145 vpxy=766) POTASSIUM (BEAKER) (test 4.1 meq/L 3.5-5.1 vpfp=552) CHLORIDE (BEAKER) (test 94 meq/L 98-107 lnro=956) CO2 (BEAKER) (test 23 meq/L 22-29 ikke=573) BLOOD UREA NITROGEN 20 mg/dL 7-21 (BEAKER) (test ahih=533) CREATININE (BEAKER) (test 1.22 mg/dL 0.57-1.25 bkpw=717) GLUCOSE RANDOM (BEAKER) 94 mg/dL 70-105 (test dhzp=891) CALCIUM (BEAKER) (test 8.8 mg/dL 8.4-10.2 rgyb=590) EGFR (BEAKER) (test 62 mL/min/1.73 sq m ESTIMATED GFR IS NOT xegf=0375) ACCURATE CREATININE CLEARANCE IN PREDICTING GLOMERULAR FILTRATION RATE. ESTIMATED GFR IS NOT APPLICABLE FOR DIALYSIS PATIENTS. [id number] 09:24:00 Test Item Value Reference Range Comments FERRITIN (BEAKER) (test ykzf=462) 1685 ng/mL 5-275 POCT-GLUCOSE [id number] 07:59:00 Test Item Value Reference Range Comments POC-GLUCOSE METER (BEAKER) 225 mg/dL 70-110 TESTED AT [address] (test zgjy=2779) [facility] [address] IRON, TIBC, % SAT. (WITHOUT FERRITIN)[id number] 07:54:00 Test Item Value Reference Range Comments IRON (BEAKER) (test vnth=829) 98 ug/dL 40-160 TOTAL IRON BINDING CAPACITY (BEAKER) (test 90 ug/dL 250-450 llej=249) IRON % SATURATION (2) (BEAKER) (test tfed=0908) 109 % 20-55 CALCIUM, [id number] 07:13:00 Test Item Value Reference Range Comments CALCIUM IONIZED (BEAKER) (test erte=179) 1.10 mmol/L 1.12-1.27 PH, BLOOD (BEAKER) (test klca=6548) 7.37 [id number] 06:32:00 Test Item Value Reference Range Comments PHOSPHORUS (BEAKER) (test zqvf=746) 2.6 mg/dL 2.3-4.7 [id number] 06:32:00 Test Item Value Reference Range Comments MAGNESIUM (BEAKER) (test kami=573) 1.8 mg/dL 1.6-2.6 COMPREHENSIVE METABOLIC [id number] 06:32:00 Test Item Value Reference Range Comments TOTAL PROTEIN (BEAKER) 5.0 gm/dL 6.0-8.3 (test oztf=878) ALBUMIN (BEAKER) (test 3.2 g/dL 3.5-5.0 tlbu=2167) ALKALINE PHOSPHATASE 138 U/L 40-150 (BEAKER) (test xvlm=653) BILIRUBIN TOTAL (BEAKER) 2.1 mg/dL 0.2-1.2 (test ujpi=607) SODIUM (BEAKER) (test 126 meq/L 136-145 zwfo=085) POTASSIUM (BEAKER) (test 4.0 meq/L 3.5-5.1 kynd=003) CHLORIDE (BEAKER) (test 95 meq/L 98-107 yacp=548) CO2 (BEAKER) (test 23 meq/L 22-29 mllq=213) BLOOD UREA NITROGEN 21 mg/dL 7-21 (BEAKER) (test dlvk=443) CREATININE (BEAKER) (test 1.15 mg/dL 0.57-1.25 cuox=211) GLUCOSE RANDOM (BEAKER) 110 mg/dL 70-105 (test tyku=605) CALCIUM (BEAKER) (test 8.8 mg/dL 8.4-10.2 nfgz=075) AST (SGOT) (BEAKER) (test 22 U/L 5-34 apvn=278) ALT (SGPT) (BEAKER) (test 11 U/L 6-55 aobw=755) EGFR (BEAKER) (test 67 mL/min/1.73 sq m ESTIMATED GFR IS NOT tzzu=2814) ACCURATE CREATININE CLEARANCE IN PREDICTING GLOMERULAR FILTRATION RATE. ESTIMATED GFR IS NOT APPLICABLE FOR DIALYSIS PATIENTS. BASIC METABOLIC [id number] 06:32:00 Test Item Value Reference Range Comments SODIUM (BEAKER) (test 126 meq/L 136-145 cemm=706) POTASSIUM (BEAKER) (test 4.0 meq/L 3.5-5.1 jcih=980) CHLORIDE (BEAKER) (test 95 meq/L 98-107 gqyj=105) CO2 (BEAKER) (test 23 meq/L 22-29 aoyu=385) BLOOD UREA NITROGEN 21 mg/dL 7-21 (BEAKER) (test zzub=659) CREATININE (BEAKER) (test 1.15 mg/dL 0.57-1.25 yhzh=650) GLUCOSE RANDOM (BEAKER) 110 mg/dL 70-105 (test alis=990) CALCIUM (BEAKER) (test 8.8 mg/dL 8.4-10.2 veag=555) EGFR (BEAKER) (test 67 mL/min/1.73 sq m ESTIMATED GFR IS NOT oqau=4389) ACCURATE CREATININE CLEARANCE IN PREDICTING GLOMERULAR FILTRATION RATE. ESTIMATED GFR IS NOT APPLICABLE FOR DIALYSIS PATIENTS. BILIRUBIN, [id number] 06:32:00 Test Item Value Reference Range Comments BILIRUBIN DIRECT (BEAKER) (test wvzs=956) 1.4 mg/dL 0.1-0.5 PROTHROMBIN [id number] 05:44:00 Test Item Value Reference Range Comments PROTIME (BEAKER) (test yhht=327) 20.9 seconds 11.7-14.7 INR (BEAKER) (test abji=580) 1.8 <=5.9 RECOMMENDED COUMADIN/WARFARIN INR THERAPY RANGESSTANDARD DOSE: 2.0 - 3.0 Includes: PROPHYLAXIS forvenous thrombosis, systemic embolization; TREATMENT for venous thrombosis and/or pulmonary embolus.HIGH RISK: Target INR is 2.5-3.5 for patients with mechanical heart valves.CBC W/PLT COUNT & AUTO [id number] 05:43:00 Test Item Value Reference Range Comments WHITE BLOOD CELL COUNT (BEAKER) (test pfug=765) 4.0 K/ L 3.5-10.5 RED BLOOD CELL COUNT (BEAKER) (test lqsu=240) 2.30 M/ L 4.63-6.08 HEMOGLOBIN (BEAKER) (test tnqa=295) 7.5 GM/DL 13.7-17.5 HEMATOCRIT (BEAKER) (test wuwc=145) 22.0 % 40.1-51.0 MEAN CORPUSCULAR VOLUME (BEAKER) (test ueli=630) 95.7 fL 79.0-92.2 MEAN CORPUSCULAR HEMOGLOBIN (BEAKER) (test 32.6 pg 25.7-32.2 lvlr=391) MEAN CORPUSCULAR HEMOGLOBIN CONC (BEAKER) (test 34.1 GM/DL 32.3-36.5 yfqo=988) RED CELL DISTRIBUTION WIDTH (BEAKER) (test 14.8 % 11.6-14.4 bdkb=953) PLATELET COUNT (BEAKER) (test ehui=902) 51 K/CU MM 150-450 MEAN PLATELET VOLUME (BEAKER) (test hyrb=604) 8.8 fL 9.4-12.4 NUCLEATED RED BLOOD CELLS (BEAKER) (test 0 /100 WBC 0-0 gvea=099) NEUTROPHILS RELATIVE PERCENT (BEAKER) (test 61 % ruej=490) LYMPHOCYTES RELATIVE PERCENT (BEAKER) (test 12 % yvmb=162) MONOCYTES RELATIVE PERCENT (BEAKER) (test 19 % brxk=109) EOSINOPHILS RELATIVE PERCENT (BEAKER) (test 7 % kymc=927) BASOPHILS RELATIVE PERCENT (BEAKER) (test 0 % omnw=350) NEUTROPHILS ABSOLUTE COUNT (BEAKER) (test 2.43 K/ L 1.78-5.38 pugd=974) LYMPHOCYTES ABSOLUTE COUNT (BEAKER) (test 0.49 K/ L 1.32-3.57 xprr=669) MONOCYTES ABSOLUTE COUNT (BEAKER) (test shvq=684) 0.75 K/ L 0.30-0.82 EOSINOPHILS ABSOLUTE COUNT (BEAKER) (test 0.29 K/ L 0.04-0.54 omuc=104) BASOPHILS ABSOLUTE COUNT (BEAKER) (test djzj=467) 0.00 K/ L 0.01-0.08 IMMATURE GRANULOCYTES-RELATIVE PERCENT (BEAKER) 1 % 0-1 (test wzmt=7883) POCT-GLUCOSE [id number] 22:23:00 Test Item Value Reference Range Comments POC-GLUCOSE METER (BEAKER) 166 mg/dL 70-110 TESTED AT [address] (test yfoo=4898) [facility] [id number] POCT-GLUCOSE [id number] 16:12:00 Test Item Value Reference Range Comments POC-GLUCOSE METER (BEAKER) 110 mg/dL 70-110 TESTED AT [address] (test tyup=7070) [facility] [address] PTH, [id number] 15:57:00 Test Item Value Reference Range Comments PARATHYROID HORMONE INTACT (BEAKER) (test 26.2 pg/mL 8.5-72.5 poqf=832) GAMMA GLUTAMYL TRANSFERASE (GGT)[id number] 15:51:00 Test Item Value Reference Range Comments GAMMA GLUTAMYL TRANSFERASE (BEAKER) (test iwqa=770) 11 U/L 9-64 BASIC METABOLIC [id number] 15:49:00 Test Item Value Reference Range Comments SODIUM (BEAKER) (test 127 meq/L 136-145 yejj=722) POTASSIUM (BEAKER) (test 3.6 meq/L 3.5-5.1 mkez=919) CHLORIDE (BEAKER) (test 97 meq/L 98-107 zxqu=232) CO2 (BEAKER) (test 23 meq/L 22-29 klnc=433) BLOOD UREA NITROGEN 20 mg/dL 7-21 (BEAKER) (test cqun=642) CREATININE (BEAKER) (test 1.19 mg/dL 0.57-1.25 dkdo=210) GLUCOSE RANDOM (BEAKER) 123 mg/dL 70-105 (test flrc=245) CALCIUM (BEAKER) (test 8.6 mg/dL 8.4-10.2 oafz=223) EGFR (BEAKER) (test 64 mL/min/1.73 sq m ESTIMATED GFR IS NOT epqk=3212) ACCURATE CREATININE CLEARANCE IN PREDICTING GLOMERULAR FILTRATION RATE. ESTIMATED GFR IS NOT APPLICABLE FOR DIALYSIS PATIENTS. VITAMIN D, [id number] 15:24:00 Test Item Value Reference Range Comments VITAMIN D 25-OH (BEAKER) (test lzrw=0271) 11.2 ng/mL 6.6-49.9 Effective 08/06/2017: Reference Range ChangeNew: 6.6-49.9 ng/mL Previous: 13.0 -47.8 ng/mLRecommended Vitamin D Target Range: 30.0-40.0 ng/mLPOCT-GLUCOSE [id number] 12:35:00 Test Item Value Reference Range Comments POC-GLUCOSE METER (BEAKER) 138 mg/dL 70-110 TESTED AT [facility] [address] [facility] (test dkzn=5157) [facility] [address] BASIC METABOLIC [id number] 09:59:00 Test Item Value Reference Range Comments SODIUM (BEAKER) (test 130 meq/L 136-145 eyce=989) POTASSIUM (BEAKER) (test 4.1 meq/L 3.5-5.1 dduh=688) CHLORIDE (BEAKER) (test 99 meq/L 98-107 zkaz=142) CO2 (BEAKER) (test 24 meq/L 22-29 fgcn=782) BLOOD UREA NITROGEN 22 mg/dL 7-21 (BEAKER) (test ilzw=467) CREATININE (BEAKER) (test 1.31 mg/dL 0.57-1.25 fazb=310) GLUCOSE RANDOM (BEAKER) 121 mg/dL 70-105 (test zdyy=239) CALCIUM (BEAKER) (test 9.4 mg/dL 8.4-10.2 flop=548) EGFR (BEAKER) (test 57 mL/min/1.73 sq m ESTIMATED GFR IS NOT mpfe=8345) ACCURATE CREATININE CLEARANCE IN PREDICTING GLOMERULAR FILTRATION RATE. ESTIMATED GFR IS NOT APPLICABLE FOR DIALYSIS PATIENTS. POCT-GLUCOSE [id number] 08:17:00 Test Item Value Reference Range Comments POC-GLUCOSE METER (BEAKER) 131 mg/dL 70-110 TESTED AT [address] (test qxaz=7907) [facility] [address] CALCIUM, [id number] 06:01:00 Test Item Value Reference Range Comments CALCIUM IONIZED (BEAKER) (test cfss=177) 1.06 mmol/L 1.12-1.27 PH, BLOOD (BEAKER) (test fngw=6493) 7.42 [id number] 05:52:00 Test Item Value Reference Range Comments PHOSPHORUS (BEAKER) (test alil=685) 3.1 mg/dL 2.3-4.7 [id number] 05:52:00 Test Item Value Reference Range Comments MAGNESIUM (BEAKER) (test geja=331) 2.3 mg/dL 1.6-2.6 BASIC METABOLIC [id number] 05:52:00 Test Item Value Reference Range Comments SODIUM (BEAKER) (test 130 meq/L 136-145 donh=719) POTASSIUM (BEAKER) (test 3.8 meq/L 3.5-5.1 dlpw=073) CHLORIDE (BEAKER) (test 98 meq/L 98-107 paow=770) CO2 (BEAKER) (test 22 meq/L 22-29 fgse=000) BLOOD UREA NITROGEN 22 mg/dL 7-21 (BEAKER) (test rwdz=108) CREATININE (BEAKER) (test 1.37 mg/dL 0.57-1.25 aode=925) GLUCOSE RANDOM (BEAKER) 118 mg/dL 70-105 (test zpeq=552) CALCIUM (BEAKER) (test 9.6 mg/dL 8.4-10.2 lrbj=170) EGFR (BEAKER) (test 54 mL/min/1.73 sq m ESTIMATED GFR IS NOT yxqb=2018) ACCURATE CREATININE CLEARANCE IN PREDICTING GLOMERULAR FILTRATION RATE. ESTIMATED GFR IS NOT APPLICABLE FOR DIALYSIS PATIENTS. Specimen slightly ictericCOMPREHENSIVE METABOLIC [id number] 05:52:00 Test Item Value Reference Range Comments TOTAL PROTEIN (BEAKER) 5.6 gm/dL 6.0-8.3 (test ymdi=161) ALBUMIN (BEAKER) (test 3.6 g/dL 3.5-5.0 eqbq=3715) ALKALINE PHOSPHATASE 146 U/L 40-150 (BEAKER) (test mtnb=101) BILIRUBIN TOTAL (BEAKER) 2.5 mg/dL 0.2-1.2 (test xurw=820) SODIUM (BEAKER) (test 130 meq/L 136-145 xnaz=409) POTASSIUM (BEAKER) (test 3.8 meq/L 3.5-5.1 qhaa=576) CHLORIDE (BEAKER) (test 98 meq/L 98-107 pvbw=684) CO2 (BEAKER) (test 22 meq/L 22-29 pvue=750) BLOOD UREA NITROGEN 22 mg/dL 7-21 (BEAKER) (test svfu=307) CREATININE (BEAKER) (test 1.37 mg/dL 0.57-1.25 mync=287) GLUCOSE RANDOM (BEAKER) 118 mg/dL 70-105 (test ykvf=660) CALCIUM (BEAKER) (test 9.6 mg/dL 8.4-10.2 hais=055) AST (SGOT) (BEAKER) (test 25 U/L 5-34 tmlj=418) ALT (SGPT) (BEAKER) (test 10 U/L 6-55 ribj=108) EGFR (BEAKER) (test 54 mL/min/1.73 sq m ESTIMATED GFR IS NOT tsrk=3219) ACCURATE CREATININE CLEARANCE IN PREDICTING GLOMERULAR FILTRATION RATE. ESTIMATED GFR IS NOT APPLICABLE FOR DIALYSIS PATIENTS. Specimen slightly ictericBILIRUBIN, [id number] 05:52:00 Test Item Value Reference Range Comments BILIRUBIN DIRECT (BEAKER) (test kopb=591) 1.6 mg/dL 0.1-0.5 PROTHROMBIN [id number] 05:41:00 Test Item Value Reference Range Comments PROTIME (BEAKER) (test smxs=959) 21.3 seconds 11.7-14.7 INR (BEAKER) (test uojs=742) 1.8 <=5.9 RECOMMENDED COUMADIN/WARFARIN INR THERAPY RANGESSTANDARD DOSE: 2.0 - 3.0 Includes: PROPHYLAXIS forvenous thrombosis, systemic embolization; TREATMENT for venous thrombosis and/or pulmonary embolus.HIGH RISK: Target INR is 2.5-3.5 for patients with mechanical heart valves.CBC W/PLT COUNT & AUTO [id number] 05:32:00 Test Item Value Reference Range Comments WHITE BLOOD CELL COUNT (BEAKER) (test rgfn=692) 5.0 K/ L 3.5-10.5 RED BLOOD CELL COUNT (BEAKER) (test jocs=605) 2.53 M/ L 4.63-6.08 HEMOGLOBIN (BEAKER) (test nvrk=286) 8.1 GM/DL 13.7-17.5 HEMATOCRIT (BEAKER) (test czja=416) 23.6 % 40.1-51.0 MEAN CORPUSCULAR VOLUME (BEAKER) (test gron=598) 93.3 fL 79.0-92.2 MEAN CORPUSCULAR HEMOGLOBIN (BEAKER) (test 32.0 pg 25.7-32.2 mvcl=219) MEAN CORPUSCULAR HEMOGLOBIN CONC (BEAKER) (test 34.3 GM/DL 32.3-36.5 zmim=154) RED CELL DISTRIBUTION WIDTH (BEAKER) (test 14.6 % 11.6-14.4 mpnz=254) PLATELET COUNT (BEAKER) (test ddmv=479) 73 K/CU MM 150-450 MEAN PLATELET VOLUME (BEAKER) (test zvby=130) 8.8 fL 9.4-12.4 NUCLEATED RED BLOOD CELLS (BEAKER) (test 0 /100 WBC 0-0 jrbg=580) NEUTROPHILS RELATIVE PERCENT (BEAKER) (test 71 % eaqm=607) LYMPHOCYTES RELATIVE PERCENT (BEAKER) (test 10 % ytwx=902) MONOCYTES RELATIVE PERCENT (BEAKER) (test 16 % akej=369) EOSINOPHILS RELATIVE PERCENT (BEAKER) (test 3 % njnw=990) BASOPHILS RELATIVE PERCENT (BEAKER) (test 0 % afjt=524) NEUTROPHILS ABSOLUTE COUNT (BEAKER) (test 3.56 K/ L 1.78-5.38 jxmr=446) LYMPHOCYTES ABSOLUTE COUNT (BEAKER) (test 0.48 K/ L 1.32-3.57 tqjp=937) MONOCYTES ABSOLUTE COUNT (BEAKER) (test bxzc=585) 0.80 K/ L 0.30-0.82 EOSINOPHILS ABSOLUTE COUNT (BEAKER) (test 0.13 K/ L 0.04-0.54 tjch=661) BASOPHILS ABSOLUTE COUNT (BEAKER) (test spwv=585) 0.01 K/ L 0.01-0.08 IMMATURE GRANULOCYTES-RELATIVE PERCENT (BEAKER) 1 % 0-1 (test xgdg=0694) POCT-GLUCOSE [id number] 21:24:00 Test Item Value Reference Range Comments POC-GLUCOSE METER (BEAKER) 137 mg/dL 70-110 TESTED AT [address] (test zypr=5736) [place] [address] POCT-GLUCOSE [id number] 17:52:00 Test Item Value Reference Range Comments POC-GLUCOSE METER (BEAKER) 166 mg/dL 70-110 TESTED AT [address] (test dfro=9527) [place] [address] BASIC METABOLIC [id number] 17:48:00 Test Item Value Reference Range Comments SODIUM (BEAKER) (test 128 meq/L 136-145 csay=800) POTASSIUM (BEAKER) (test 4.0 meq/L 3.5-5.1 ejft=088) CHLORIDE (BEAKER) (test 97 meq/L 98-107 lsdl=178) CO2 (BEAKER) (test 23 meq/L 22-29 sqxw=077) BLOOD UREA NITROGEN 24 mg/dL 7-21 (BEAKER) (test mnye=107) CREATININE (BEAKER) (test 1.25 mg/dL 0.57-1.25 smnk=419) GLUCOSE RANDOM (BEAKER) 123 mg/dL 70-105 (test zjpo=911) CALCIUM (BEAKER) (test 8.9 mg/dL 8.4-10.2 yvqf=138) EGFR (BEAKER) (test 60 mL/min/1.73 sq m ESTIMATED GFR IS NOT ddvz=5143) ACCURATE CREATININE CLEARANCE IN PREDICTING GLOMERULAR FILTRATION RATE. ESTIMATED GFR IS NOT APPLICABLE FOR DIALYSIS PATIENTS. POCT-GLUCOSE [id number] 12:18:00 Test Item Value Reference Range Comments POC-GLUCOSE METER (BEAKER) 152 mg/dL 70-110 TESTED AT [address] (test dewu=5490) [place] [address] POCT-GLUCOSE [id number] 09:31:00 Test Item Value Reference Range Comments POC-GLUCOSE METER (BEAKER) 142 mg/dL 70-110 TESTED AT [address] (test ggkk=1147) [place] [address] BASIC METABOLIC [id number] 09:03:00 Test Item Value Reference Range Comments SODIUM (BEAKER) (test 125 meq/L 136-145 vatg=228) POTASSIUM (BEAKER) (test 5.1 meq/L 3.5-5.1 Specimen slightly uwss=007) hemolyzed CHLORIDE (BEAKER) (test 95 meq/L 98-107 xdnt=220) CO2 (BEAKER) (test 23 meq/L 22-29 qpmj=136) BLOOD UREA NITROGEN 26 mg/dL 7-21 (BEAKER) (test zcyr=408) CREATININE (BEAKER) (test 1.25 mg/dL 0.57-1.25 Specimen slightly dgxr=622) hemolyzed GLUCOSE RANDOM (BEAKER) 99 mg/dL 70-105 (test uluv=811) CALCIUM (BEAKER) (test 9.0 mg/dL 8.4-10.2 elpr=915) EGFR (BEAKER) (test 60 mL/min/1.73 sq m ESTIMATED GFR IS NOT apju=6827) ACCURATE CREATININE CLEARANCE IN PREDICTING GLOMERULAR FILTRATION RATE. ESTIMATED GFR IS NOT APPLICABLE FOR DIALYSIS PATIENTS. POCT-GLUCOSE [id number] 08:38:00 Test Item Value Reference Range Comments POC-GLUCOSE METER (BEAKER) 171 mg/dL 70-110 TESTED AT [address] (test fvgi=6806) [place] [address] [id number] 05:30:00 Test Item Value Reference Range Comments PHOSPHORUS (BEAKER) (test pxmw=095) 2.9 mg/dL 2.3-4.7 [id number] 05:30:00 Test Item Value Reference Range Comments MAGNESIUM (BEAKER) (test tpud=541) 2.2 mg/dL 1.6-2.6 COMPREHENSIVE METABOLIC [id number] 05:30:00 Test Item Value Reference Range Comments TOTAL PROTEIN (BEAKER) 5.2 gm/dL 6.0-8.3 (test xorl=942) ALBUMIN (BEAKER) (test 3.4 g/dL 3.5-5.0 vweb=6290) ALKALINE PHOSPHATASE 134 U/L 40-150 (BEAKER) (test bevm=683) BILIRUBIN TOTAL (BEAKER) 2.3 mg/dL 0.2-1.2 (test cddx=199) SODIUM (BEAKER) (test 124 meq/L 136-145 hecq=449) POTASSIUM (BEAKER) (test 4.9 meq/L 3.5-5.1 ikre=810) CHLORIDE (BEAKER) (test 94 meq/L 98-107 txsg=040) CO2 (BEAKER) (test 24 meq/L 22-29 czjg=679) BLOOD UREA NITROGEN 27 mg/dL 7-21 (BEAKER) (test cemt=960) CREATININE (BEAKER) (test 1.27 mg/dL 0.57-1.25 rpuo=654) GLUCOSE RANDOM (BEAKER) 122 mg/dL 70-105 (test sjez=148) CALCIUM (BEAKER) (test 9.2 mg/dL 8.4-10.2 uijc=193) AST (SGOT) (BEAKER) (test 24 U/L 5-34 mxni=072) ALT (SGPT) (BEAKER) (test 10 U/L 6-55 kcvw=427) EGFR (BEAKER) (test 59 mL/min/1.73 sq m ESTIMATED GFR IS NOT fsfq=4131) ACCURATE CREATININE CLEARANCE IN PREDICTING GLOMERULAR FILTRATION RATE. ESTIMATED GFR IS NOT APPLICABLE FOR DIALYSIS PATIENTS. BILIRUBIN, [id number] 05:30:00 Test Item Value Reference Range Comments BILIRUBIN DIRECT (BEAKER) (test jhgz=038) 1.5 mg/dL 0.1-0.5 PROTHROMBIN [id number] 05:09:00 Test Item Value Reference Range Comments PROTIME (BEAKER) (test lylm=742) 22.3 seconds 11.7-14.7 INR (BEAKER) (test ujdz=787) 2.0 <=5.9 RECOMMENDED COUMADIN/WARFARIN INR THERAPY RANGESSTANDARD DOSE: 2.0 - 3.0 Includes: PROPHYLAXIS forvenous thrombosis, systemic embolization; TREATMENT for venous thrombosis and/or pulmonary embolus.HIGH RISK: Target INR is 2.5-3.5 for patients with mechanical heart valves.CBC W/PLT COUNT & AUTO [id number] 04:59:00 Test Item Value Reference Range Comments WHITE BLOOD CELL COUNT (BEAKER) (test zbja=621) 5.0 K/ L 3.5-10.5 RED BLOOD CELL COUNT (BEAKER) (test qyai=722) 2.24 M/ L 4.63-6.08 HEMOGLOBIN (BEAKER) (test ylrh=473) 7.2 GM/DL 13.7-17.5 HEMATOCRIT (BEAKER) (test ehra=014) 20.8 % 40.1-51.0 MEAN CORPUSCULAR VOLUME (BEAKER) (test vwqm=944) 92.9 fL 79.0-92.2 MEAN CORPUSCULAR HEMOGLOBIN (BEAKER) (test 32.1 pg 25.7-32.2 kecv=636) MEAN CORPUSCULAR HEMOGLOBIN CONC (BEAKER) (test 34.6 GM/DL 32.3-36.5 aupm=669) RED CELL DISTRIBUTION WIDTH (BEAKER) (test 14.2 % 11.6-14.4 beyj=517) PLATELET COUNT (BEAKER) (test gpmf=563) 56 K/CU MM 150-450 MEAN PLATELET VOLUME (BEAKER) (test wumx=023) 8.9 fL 9.4-12.4 NUCLEATED RED BLOOD CELLS (BEAKER) (test 0 /100 WBC 0-0 ifqy=237) NEUTROPHILS RELATIVE PERCENT (BEAKER) (test 82 % rsrf=893) LYMPHOCYTES RELATIVE PERCENT (BEAKER) (test 5 % qbfm=250) MONOCYTES RELATIVE PERCENT (BEAKER) (test 12 % xxjm=848) EOSINOPHILS RELATIVE PERCENT (BEAKER) (test 0 % roie=020) BASOPHILS RELATIVE PERCENT (BEAKER) (test 0 % sjhu=038) NEUTROPHILS ABSOLUTE COUNT (BEAKER) (test 4.12 K/ L 1.78-5.38 qmkw=976) LYMPHOCYTES ABSOLUTE COUNT (BEAKER) (test 0.26 K/ L 1.32-3.57 feny=857) MONOCYTES ABSOLUTE COUNT (BEAKER) (test zugf=753) 0.59 K/ L 0.30-0.82 EOSINOPHILS ABSOLUTE COUNT (BEAKER) (test 0.00 K/ L 0.04-0.54 udwb=242) BASOPHILS ABSOLUTE COUNT (BEAKER) (test vmpr=923) 0.00 K/ L 0.01-0.08 IMMATURE GRANULOCYTES-RELATIVE PERCENT (BEAKER) 1 % 0-1 (test iwvt=1350) CALCIUM, [id number] 04:57:00 Test Item Value Reference Range Comments CALCIUM IONIZED (BEAKER) (test zzwy=587) 1.14 mmol/L 1.12-1.27 PH, BLOOD (BEAKER) (test zufq=0554) 7.39 POCT-GLUCOSE [id number] 00:41:00 Test Item Value Reference Range Comments POC-GLUCOSE METER (BEAKER) 186 mg/dL 70-110 TESTED AT [facility] [address] [facility] (test okdp=5315) [facility] [address] CORTISOL,60 [id number] 23:00:00 Test Item Value Reference Range Comments CORTISOL BASELINE NETWORKED (BEAKER) (test 7.5 mcg/dL mqvn=3244) CORTISOL 30 MINUTE NETWORKED (BEAKER) (test 14.1 mcg/dL oqtr=9013) CORTISOL, 60 MINUTE (BEAKER) (test jjsz=1065) 18.9 ug/dL ACTH STIMULATION TEST INTERPRETATION GUIDELINES(Synonyms: Cortrosyn [...] serum cortisollevel 60 minutes after cosyntropin administration.CORTISOL,30 [id number] 22:05:00 Test Item Value Reference Range Comments CORTISOL BASELINE NETWORKED (BEAKER) (test 7.5 mcg/dL aiyb=2874) CORTISOL, 30 MINUTE (BEAKER) (test qqvf=5339) 14.1 ug/dL ACTH STIMULATION TEST INTERPRETATION GUIDELINES(Synonyms: Cortrosyn [...] Draw serum cortisollevel 60 minutes after cosyntropin administration.BASIC METABOLIC [id number] 21:42:00 Test Item Value Reference Range Comments SODIUM (BEAKER) (test 123 meq/L 136-145 lpib=076) POTASSIUM (BEAKER) (test 4.3 meq/L 3.5-5.1 uvcq=927) CHLORIDE (BEAKER) (test 93 meq/L 98-107 ocdb=686) CO2 (BEAKER) (test 24 meq/L 22-29 wnxk=347) BLOOD UREA NITROGEN 29 mg/dL 7-21 (BEAKER) (test ezfl=629) CREATININE (BEAKER) (test 1.38 mg/dL 0.57-1.25 cqoc=510) GLUCOSE RANDOM (BEAKER) 109 mg/dL 70-105 (test pftc=577) CALCIUM (BEAKER) (test 9.2 mg/dL 8.4-10.2 smjh=191) EGFR (BEAKER) (test 54 mL/min/1.73 sq m ESTIMATED GFR IS NOT awwa=1070) ACCURATE CREATININE CLEARANCE IN PREDICTING GLOMERULAR FILTRATION RATE. ESTIMATED GFR IS NOT APPLICABLE FOR DIALYSIS PATIENTS. Call results to Dr Almendarez METABOLIC [id number] 18:03:00 Test Item Value Reference Range Comments SODIUM (BEAKER) (test 124 meq/L 136-145 vmxe=359) POTASSIUM (BEAKER) (test 4.6 meq/L 3.5-5.1 tlaw=571) CHLORIDE (BEAKER) (test 93 meq/L 98-107 ibpy=974) CO2 (BEAKER) (test 25 meq/L 22-29 vqzl=036) BLOOD UREA NITROGEN 32 mg/dL 7-21 (BEAKER) (test duex=786) CREATININE (BEAKER) (test 1.40 mg/dL 0.57-1.25 heac=864) GLUCOSE RANDOM (BEAKER) 94 mg/dL 70-105 (test dhkz=319) CALCIUM (BEAKER) (test 9.0 mg/dL 8.4-10.2 kimf=200) EGFR (BEAKER) (test 53 mL/min/1.73 sq m ESTIMATED GFR IS NOT tkwm=3444) ACCURATE CREATININE CLEARANCE IN PREDICTING GLOMERULAR FILTRATION RATE. ESTIMATED GFR IS NOT APPLICABLE FOR DIALYSIS PATIENTS. BODY FLUID CELL COUNT WITH [id number] 13:54:00 Test Item Value Reference Range Comments APPEARANCE FLUID (BEAKER) (test wlse=055) Slightly Hazy Clear COLOR FLUID (BEAKER) (test xeqe=231) Yellow Colorless, Straw RBC FLUID (BEAKER) (test ahha=783) 1000 /cu mm <=1 ADJUSTED WBC FLUID (BEAKER) (test hslu=7222) 54 /cu mm <=5 LINING CELLS (BEAKER) (test ohzk=0928) 2 /cu mm <=1 NEUTROPHILS FLUID (BEAKER) (test fhwc=1426) 6 % LYMPHS FLUID (BEAKER) (test yhzl=369) 25 % MONO/MACROPHAGE FLUID (BEAKER) (test 69 % cfri=596) EOSINOPHILS FLUID (BEAKER) (test zkoj=073) 0 % BASO FLUID (BEAKER) (test sjvl=197) 0 % CONTAINER BODY FLUID (BEAKER) (test Sterile Vial zrtj=9625) ALBUMIN, BODY [id number] 13:45:00 Test Item Value Reference Range Comments ALBUMIN FLUID (BEAKER) (test xomx=537) 0.8 gm/dL Reference Range: No Normals Assay performance has not been validated for this type of specimen.LACTATE DEHYDROGENASE (LDH), BODY [id number] 13:13:00 Test Item Value Reference Range Comments LACTATE DEHYDROGENASE FLUID (BEAKER) (test ipmu=429) < U/L Absence of reference range indicates that normals have not been defined.Assay performance has not been validated for this type of specimen.GLUCOSE, BODY [id number] 13:13:00 Test Item Value Reference Range Comments GLUCOSE, BODY FLUID (BEAKER) (test ewwd=7510) 82 mg/dL Absence of reference range indicates that normals have not been defined.Assay performance has not been validated for this type of specimen.TRIGLYCERIDES, BODY [id number] 13:10:00 Test Item Value Reference Range Comments TRIGLYCERIDES FLUID (BEAKER) (test anbn=902) 39 mg/dL Reference Range: No Normals Assay performance has not been validated for this type of specimen.PROTEIN, BODY [id number] 13:09:00 Test Item Value Reference Range Comments PROTEIN FLUID (BEAKER) (test egqr=281) 1.2 g/dL Absence of reference range indicates that normals have not been defined.Assay performance has not been validated for this type of specimen.CORTISOL, [id number] 12:52:00 Test Item Value Reference Range Comments CORTISOL, BASELINE (BEAKER) (test onwi=8997) 7.5 ug/dL ACTH STIMULATION TEST INTERPRETATION GUIDELINES(Synonyms: Cortrosyn [...] Draw serum cortisollevel 60 minutes after cosyntropin administration.BASIC METABOLIC [id number] 12:40:00 Test Item Value Reference Range Comments SODIUM (BEAKER) (test 119 meq/L 136-145 tsmn=297) POTASSIUM (BEAKER) (test 5.2 meq/L 3.5-5.1 okeq=551) CHLORIDE (BEAKER) (test 90 meq/L 98-107 cfso=923) CO2 (BEAKER) (test 23 meq/L 22-29 aiys=458) BLOOD UREA NITROGEN 34 mg/dL 7-21 (BEAKER) (test nbit=003) CREATININE (BEAKER) (test 1.46 mg/dL 0.57-1.25 sgox=715) GLUCOSE RANDOM (BEAKER) 84 mg/dL 70-105 (test ihlj=507) CALCIUM (BEAKER) (test 8.8 mg/dL 8.4-10.2 mdnz=957) EGFR (BEAKER) (test 51 mL/min/1.73 sq m ESTIMATED GFR IS NOT uynn=0228) ACCURATE CREATININE CLEARANCE IN PREDICTING GLOMERULAR FILTRATION RATE. ESTIMATED GFR IS NOT APPLICABLE FOR DIALYSIS PATIENTS. Specimen slightly ictericRAD, CHEST, 1 VIEW, NON [id number] 11:50:00Reason for exam:->coughShould this be performed at the bedside?->YesFINAL REPORT Chest one view compared to May 12, 2018 Discussion: There is diffuse interstitial prominence. No effusion or pneumothorax. Heart size normal. IMPRESSIONS: No changeSigned: Nisbet, Karina MDReport Verified Date/ Time: 08/26/2018 11:50:19 Reading Location: [facility] Radiology Reading Room BASIC METABOLIC [id number] 09:35:00 Test Item Value Reference Range Comments SODIUM (BEAKER) (test 119 meq/L 136-145 bxnd=081) POTASSIUM (BEAKER) (test 4.9 meq/L 3.5-5.1 kafh=284) CHLORIDE (BEAKER) (test 89 meq/L 98-107 nrmf=930) CO2 (BEAKER) (test 23 meq/L 22-29 jqvo=452) BLOOD UREA NITROGEN 36 mg/dL 7-21 (BEAKER) (test korx=506) CREATININE (BEAKER) (test 1.46 mg/dL 0.57-1.25 ntud=399) GLUCOSE RANDOM (BEAKER) 83 mg/dL 70-105 (test bncl=611) CALCIUM (BEAKER) (test 8.8 mg/dL 8.4-10.2 lbri=708) EGFR (BEAKER) (test 51 mL/min/1.73 sq m ESTIMATED GFR IS NOT hwps=6670) ACCURATE CREATININE CLEARANCE IN PREDICTING GLOMERULAR FILTRATION RATE. ESTIMATED GFR IS NOT APPLICABLE FOR DIALYSIS PATIENTS. POCT-GLUCOSE [id number] 05:56:00 Test Item Value Reference Range Comments POC-GLUCOSE METER (BEAKER) 86 mg/dL 70-110 TESTED AT [facility] [address] [facility] (test hzug=5146) [facility] [address] CBC W/PLT COUNT & AUTO [id number] 04:42:00 Test Item Value Reference Range Comments WHITE BLOOD CELL COUNT (BEAKER) (test ioou=287) 10.5 K/ L 3.5-10.5 RED BLOOD CELL COUNT (BEAKER) (test ijbt=198) 2.37 M/ L 4.63-6.08 HEMOGLOBIN (BEAKER) (test oplt=725) 7.4 GM/DL 13.7-17.5 HEMATOCRIT (BEAKER) (test exio=063) 21.6 % 40.1-51.0 MEAN CORPUSCULAR VOLUME (BEAKER) (test njbv=794) 91.1 fL 79.0-92.2 MEAN CORPUSCULAR HEMOGLOBIN (BEAKER) (test 31.2 pg 25.7-32.2 teom=614) MEAN CORPUSCULAR HEMOGLOBIN CONC (BEAKER) (test 34.3 GM/DL 32.3-36.5 bkcc=158) RED CELL DISTRIBUTION WIDTH (BEAKER) (test 14.4 % 11.6-14.4 aaxm=821) PLATELET COUNT (BEAKER) (test pccu=950) 67 K/CU MM 150-450 MEAN PLATELET VOLUME (BEAKER) (test koxm=635) 8.3 fL 9.4-12.4 NUCLEATED RED BLOOD CELLS (BEAKER) (test 0 /100 WBC 0-0 jcsd=282) NEUTROPHILS RELATIVE PERCENT (BEAKER) (test 82 % flea=429) LYMPHOCYTES RELATIVE PERCENT (BEAKER) (test 4 % opdp=639) MONOCYTES RELATIVE PERCENT (BEAKER) (test 12 % oogl=086) EOSINOPHILS RELATIVE PERCENT (BEAKER) (test 1 % ijsn=467) BASOPHILS RELATIVE PERCENT (BEAKER) (test 0 % klga=971) NEUTROPHILS ABSOLUTE COUNT (BEAKER) (test 8.62 K/ L 1.78-5.38 ktmr=118) LYMPHOCYTES ABSOLUTE COUNT (BEAKER) (test 0.45 K/ L 1.32-3.57 rxtl=098) MONOCYTES ABSOLUTE COUNT (BEAKER) (test grtx=646) 1.31 K/ L 0.30-0.82 EOSINOPHILS ABSOLUTE COUNT (BEAKER) (test 0.10 K/ L 0.04-0.54 ldhg=093) BASOPHILS ABSOLUTE COUNT (BEAKER) (test rmtg=834) 0.00 K/ L 0.01-0.08 IMMATURE GRANULOCYTES-RELATIVE PERCENT (BEAKER) 1 % 0-1 (test pllx=2749) COMPREHENSIVE METABOLIC [id number] 04:36:00 Test Item Value Reference Range Comments TOTAL PROTEIN (BEAKER) 4.9 gm/dL 6.0-8.3 (test olsk=050) ALBUMIN (BEAKER) (test 2.8 g/dL 3.5-5.0 grnw=0685) ALKALINE PHOSPHATASE 146 U/L 40-150 (BEAKER) (test bhex=835) BILIRUBIN TOTAL (BEAKER) 2.9 mg/dL 0.2-1.2 (test tcoe=305) SODIUM (BEAKER) (test 118 meq/L 136-145 akzv=066) POTASSIUM (BEAKER) (test 5.2 meq/L 3.5-5.1 excc=555) CHLORIDE (BEAKER) (test 90 meq/L 98-107 cigu=487) CO2 (BEAKER) (test 23 meq/L 22-29 ulgj=694) BLOOD UREA NITROGEN 37 mg/dL 7-21 (BEAKER) (test fatl=090) CREATININE (BEAKER) (test 1.47 mg/dL 0.57-1.25 ylyj=653) GLUCOSE RANDOM (BEAKER) 65 mg/dL 70-105 (test wwjh=936) CALCIUM (BEAKER) (test 8.9 mg/dL 8.4-10.2 tqvl=469) AST (SGOT) (BEAKER) (test 29 U/L 5-34 mvnr=008) ALT (SGPT) (BEAKER) (test 10 U/L 6-55 cyns=416) EGFR (BEAKER) (test 50 mL/min/1.73 sq m ESTIMATED GFR IS NOT yfyh=4646) ACCURATE CREATININE CLEARANCE IN PREDICTING GLOMERULAR FILTRATION RATE. ESTIMATED GFR IS NOT APPLICABLE FOR DIALYSIS PATIENTS. Specimen slightly [id number] 04:33:00 Test Item Value Reference Range Comments PHOSPHORUS (BEAKER) (test kznj=989) 3.1 mg/dL 2.3-4.7 [id number] 04:33:00 Test Item Value Reference Range Comments MAGNESIUM (BEAKER) (test yjey=025) 2.1 mg/dL 1.6-2.6 CALCIUM, [id number] 04:05:00 Test Item Value Reference Range Comments CALCIUM IONIZED (BEAKER) (test bznc=601) 1.13 mmol/L 1.12-1.27 PH, BLOOD (BEAKER) (test vdyo=5201) 7.38 BASIC METABOLIC [id number] 01:34:00 Test Item Value Reference Range Comments SODIUM (BEAKER) (test 117 meq/L 136-145 cynn=240) POTASSIUM (BEAKER) (test 4.9 meq/L 3.5-5.1 ocgw=466) CHLORIDE (BEAKER) (test 89 meq/L 98-107 yxxd=440) CO2 (BEAKER) (test 22 meq/L 22-29 fftw=751) BLOOD UREA NITROGEN 37 mg/dL 7-21 (BEAKER) (test pfjp=499) CREATININE (BEAKER) (test 1.52 mg/dL 0.57-1.25 cftt=498) GLUCOSE RANDOM (BEAKER) 67 mg/dL 70-105 (test qttz=920) CALCIUM (BEAKER) (test 9.1 mg/dL 8.4-10.2 tfps=181) EGFR (BEAKER) (test 48 mL/min/1.73 sq m ESTIMATED GFR IS NOT zjjs=7901) ACCURATE CREATININE CLEARANCE IN PREDICTING GLOMERULAR FILTRATION RATE. ESTIMATED GFR IS NOT APPLICABLE FOR DIALYSIS PATIENTS. Specimen slightly ictericU/S, ABDOMINAL, [id number] 23:49:00Abdomen limited area? Add comment if clarification is needed.->Right upper quadrantReason for exam:->Cirrhotic patient - HCC screening and also ascites eval for paracentesisShould this be performed at the bedside?-> YesFINAL REPORT Exam: Limited abdominal ultrasound. Clinical History: Cirrhotic patient - HCC screening and also ascites eval for paracentesis . Comparison: Abdominal ultrasound 02/03/17. Findings: Sonographic evaluation of the right upper quadrant of the abdomen was performed. Liver: 10.3 cm in length at the right midclavicular line. Echogenic and coarse parenchyma with nodular contour in keeping with cirrhosis. No lesion is identified by ultrasound. Main portal vein ispatent measuring 1.3 cm in diameter, and demonstrates hepatopetal flow. Biliary tree: Common duct 5mm. No intrahepatic biliary ductal dilatation. Gallbladder: Multiple small shadowing mobile gallstones. No wall thickening. No pericholecystic fluid. Negative sonographic Bynum's sign. Pancreas: Largely obstructed by bowel gas and therefore not evaluated. Ascites: Large abdominal ascites. Right kidney: 10.7 x 6.6 x 5.7 cm with cortical thickness of 1.4 cm. Normal cortical echogenicity. No mass. No shadowing calculus. No hydronephrosis. IVC/Aorta: Segments partially seen. Unremarkable.Impression:Cholelithiasis without sonographic evidence of acute cholecystitis. No biliary ductal dilatation.Liver cirrhosis. No focal liver lesions by ultrasound.Large abdominal ascites. Signed : Aba Augusteeport Verified Date/Time: 08/25/2018 23:49:36 Reading Location: [facility] [id number] CT Body Reading Room POCT-GLUCOSE [id number] 23:16:00 Test Item Value Reference Range Comments POC-GLUCOSE METER (BEAKER) 89 mg/dL 70-110 TESTED AT [facility] [facility] [address] [facility] (test ufgg=8873) [facility] [address] COMPREHENSIVE METABOLIC [id number] 21:15:00 Test Item Value Reference Range Comments TOTAL PROTEIN (BEAKER) 5.4 gm/dL 6.0-8.3 (test vvca=957) ALBUMIN (BEAKER) (test 3.1 g/dL 3.5-5.0 iwrs=3085) ALKALINE PHOSPHATASE 164 U/L 40-150 (BEAKER) (test gjwc=972) BILIRUBIN TOTAL (BEAKER) 3.1 mg/dL 0.2-1.2 (test gqtt=886) SODIUM (BEAKER) (test 116 meq/L 136-145 hmxx=505) POTASSIUM (BEAKER) (test 5.0 meq/L 3.5-5.1 yspt=339) CHLORIDE (BEAKER) (test 87 meq/L 98-107 boja=933) CO2 (BEAKER) (test 22 meq/L 22-29 pegx=498) BLOOD UREA NITROGEN 38 mg/dL 7-21 (BEAKER) (test scqc=140) CREATININE (BEAKER) (test 1.52 mg/dL 0.57-1.25 tdze=841) GLUCOSE RANDOM (BEAKER) 67 mg/dL 70-105 (test fwdm=677) CALCIUM (BEAKER) (test 9.1 mg/dL 8.4-10.2 mstv=035) AST (SGOT) (BEAKER) (test 30 U/L 5-34 ijou=819) ALT (SGPT) (BEAKER) (test 10 U/L 6-55 lnwg=606) EGFR (BEAKER) (test 48 mL/min/1.73 sq m ESTIMATED GFR IS NOT ndge=1613) ACCURATE CREATININE CLEARANCE IN PREDICTING GLOMERULAR FILTRATION RATE. ESTIMATED GFR IS NOT APPLICABLE FOR DIALYSIS PATIENTS. Recheck and call Dr. Solorio with results [phone] slightly ictericBASIC METABOLIC [id number] 17:36:00 Test Item Value Reference Range Comments SODIUM (BEAKER) (test 119 meq/L 136-145 ttbs=697) POTASSIUM (BEAKER) (test 5.0 meq/L 3.5-5.1 rzbv=315) CHLORIDE (BEAKER) (test 89 meq/L 98-107 sneo=786) CO2 (BEAKER) (test 22 meq/L 22-29 sdam=552) BLOOD UREA NITROGEN 38 mg/dL 7-21 (BEAKER) (test shli=227) CREATININE (BEAKER) (test 1.50 mg/dL 0.57-1.25 lnhs=662) GLUCOSE RANDOM (BEAKER) 70 mg/dL 70-105 (test zrty=398) CALCIUM (BEAKER) (test 8.9 mg/dL 8.4-10.2 jxyb=066) EGFR (BEAKER) (test 49 mL/min/1.73 sq m ESTIMATED GFR IS NOT noan=8246) ACCURATE CREATININE CLEARANCE IN PREDICTING GLOMERULAR FILTRATION RATE. ESTIMATED GFR IS NOT APPLICABLE FOR DIALYSIS PATIENTS. Specimen slightly ictericCT, CHEST, WITH HIGH RESOLUTION, INTERSTITAL LUNG [id number] 17:36:00Reason for exam:->follow up for lung noduleFINAL REPORT CT of the Chest dated 08/25/2018 COMPARISON: December 31, 2017 CLINICAL INFORMATION: follow up for lung nodule Comment: Axial images of the chest were obtained from thoracic inlet to the upper abdomen without intravenous contrast. This exam was performed accordingto our departmental dose-optimization program, which includes automated exposure control, adjustmentof the mA and/or kV according to patient size and/or use of interactive reconstruction technique. Heart is normal in size. Great vessels are unremarkable. No adenopathy in the mediastinum or perihilarregion. Trachea and mainstem bronchi are patent. Subsegmental atelectasis is seen in both lower lobes. The rest of the lungs are clear. No nodular, mass lesion or airspace disease is noted. No interstitial disease or bronchiectasis is present. No pleural effusion or pleural based mass is seen. Visualized upper abdomen demonstrates cirrhotic liver with ascites. Multiple gallstones are present. Impression: Bibasilar subsegmental atelectasis. Signed: Lena Lynn MDReport Verified Date/Time: 08/25/2018 17:36:51 Reading Location: [facility] B1 C013Y CT Body Reading Room CT, SPINE, LUMBAR, WO [id number] 17:06:00FINAL REPORT CT thoracic and lumbar spine without contrast 4:59 PMCLINICAL INDICATION: Spine fracture, traumatic, lumbar COMPARISON : None available TECHNIQUE: Multiple axial noncontrast CT images of the thoracic and lumbar spine were obtained in bone and soft tissue windows. Axially acquired data were reformatted in sagittal and coronal planes for further analysis. This examination was performed according to our departmental dose optimization program, which includes automated exposure control, adjustment of the mA and/or kV according to patient size, and/or use ofiterated reconstruction technique. FINDINGS: There are mild superior T1, T2, and T3 compression fractures. There are moderate superior L1, L4, and L5 compression fractures. There are previously augmented T11, T12, and L2 compression fractures. There are varying degrees of osseous retropulsion. There is no result in high-grade central canal stenosis. The remaining vertebral bodies are osteopenic, but intact. 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 There are superimposed degenerative changes, without high-grade central canal stenosis. There is hepatic cirrhosis with splenomegalyand portal hypertension. There is large volume ascites. There is cholelithiasis. Diffusely diminished density in both kidneys suggests acute nephropathy. There is multivessel coronary artery calcification. IMPRESSION: 1. Multilevel age indeterminate compression fractures without spinal canal compromise. 2. Nonskeletal findings as discussed. Signed: Chase Bain MDReport Verified Date/Time: 08/25/2018 17:06:21 Reading Location: [facility] Radiology Reading Room CT, SPINE, THORACIC, WO [id number] 17:06:00FINAL REPORT CT thoracic and lumbar spine without contrast 08/25/2018 4:59 PMCLINICAL INDICATION: Spine fracture, traumatic, lumbar COMPARISON: None available TECHNIQUE: Multiple axial noncontrast CT images of the thoracic and lumbar spine were obtained in bone and soft tissue windows. Axially acquired data were reformatted in sagittal and coronal planes for further analysis. This examination was performed according to our departmental dose optimization program, which includes automated exposure control, adjustment of the mA and/or kV according to patient size, and/or use ofiterated reconstruction technique. FINDINGS: There are mild superior T1, T2, and T3 compression fractures. There are moderate superior L1, L4, and L5 compression fractures. There are previously augmented T11, T12, and L2 compression fractures. There are varying degrees of osseous retropulsion. There is no result in high-grade central canal stenosis. The remaining vertebral bodies are osteopenic, but intact. 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 There are superimposed degenerative changes, without high-grade central canal stenosis. There is hepatic cirrhosis with splenomegalyand portal hypertension. There is large volume ascites. There is cholelithiasis. Diffusely diminished density in both kidneys suggests acute nephropathy. There is multivessel coronary artery calcification. IMPRESSION: 1. Multilevel age indeterminate compression fractures without spinal canal compromise. 2. Nonskeletal findings as discussed. Signed: Chase Bain MDReport Verified Date/Time: 08/25/2018 17: 06:21 Reading Location: [facility] Radiology Reading Room EOSINOPHIL SMEAR, [id number] 16:40:00 Test Item Value Reference Range Comments EOSINOPHIL SMEAR, URINE (BEAKER) (test No EOS seen No EOS seen fxqh=3985) SODIUM, RANDOM [id number] 15:13:00 Test Item Value Reference Range Comments SODIUM URINE (BEAKER) (test ryre=187) < meq/L Reference Range: No NormalsCOMPREHENSIVE METABOLIC [id number] 15:12:00 Test Item Value Reference Range Comments TOTAL PROTEIN (BEAKER) 5.0 gm/dL 6.0-8.3 (test jpnx=375) ALBUMIN (BEAKER) (test 2.9 g/dL 3.5-5.0 zvpv=5121) ALKALINE PHOSPHATASE 154 U/L 40-150 (BEAKER) (test gsgy=376) BILIRUBIN TOTAL (BEAKER) 3.1 mg/dL 0.2-1.2 (test lapv=192) SODIUM (BEAKER) (test 116 meq/L 136-145 obpy=845) POTASSIUM (BEAKER) (test 4.8 meq/L 3.5-5.1 fiyu=462) CHLORIDE (BEAKER) (test 87 meq/L 98-107 rtmo=046) CO2 (BEAKER) (test 24 meq/L 22-29 yyor=666) BLOOD UREA NITROGEN 39 mg/dL 7-21 (BEAKER) (test qdsm=107) CREATININE (BEAKER) (test 1.53 mg/dL 0.57-1.25 xmih=955) GLUCOSE RANDOM (BEAKER) 67 mg/dL 70-105 (test vfso=840) CALCIUM (BEAKER) (test 8.6 mg/dL 8.4-10.2 vrwm=889) AST (SGOT) (BEAKER) (test 24 U/L 5-34 mpay=045) ALT (SGPT) (BEAKER) (test 11 U/L 6-55 eidu=811) EGFR (BEAKER) (test 48 mL/min/1.73 sq m ESTIMATED GFR IS NOT uzkz=0746) ACCURATE CREATININE CLEARANCE IN PREDICTING GLOMERULAR FILTRATION RATE. ESTIMATED GFR IS NOT APPLICABLE FOR DIALYSIS PATIENTS. Specimen slightly ictericPROTEIN, RANDOM [id number] 15:12:00 Test Item Value Reference Range Comments PROTEIN, URINE (BEAKER) (test ohcw=5045) < mg/dL 0-14 CREATININE, RANDOM [id number] 15:10:00 Test Item Value Reference Range Comments CREATININE URINE (BEAKER) (test dbsg=476) 75.0 mg/dL Reference Range: No NormalsURINALYSIS W/ [id number] 14:55:00 Test Item Value Reference Range Comments COLOR (BEAKER) (test vhiv=319) Yellow CLARITY (BEAKER) (test ldgo=446) Hazy SPECIFIC GRAVITY UA (BEAKER) (test grhf=256) 1.009 1.001-1.035 PH UA (BEAKER) (test ydkp=047) 5.5 5.0-8.0 PROTEIN UA (BEAKER) (test qjtr=983) Negative Negative GLUCOSE UA (BEAKER) (test mduk=256) Negative Negative KETONES UA (BEAKER) (test twca=788) Negative Negative BILIRUBIN UA (BEAKER) (test xlpo=816) Negative Negative BLOOD UA (BEAKER) (test mzlu=584) Small Negative NITRITE UA (BEAKER) (test bnyx=900) Negative Negative LEUKOCYTE ESTERASE UA (BEAKER) (test eych=947) Negative Negative UROBILINOGEN UA (BEAKER) (test zoif=359) 0.2 mg/dL 0.2-1.0 RBC UA (BEAKER) (test gtpn=737) 20 /HPF WBC UA (BEAKER) (test yqtw=815) 27 /HPF SQUAMOUS EPITHELIAL (BEAKER) (test nnba=547) 18 /HPF SOURCE(BEAKER) (test lung=3988) URINALYSIS W/ REFLEX URINE [id number] 14:47:00 Test Item Value Reference Range Comments COLOR (BEAKER) (test kgji=457) Yellow CLARITY (BEAKER) (test kszf=453) Hazy SPECIFIC GRAVITY UA (BEAKER) (test eshc=403) 1.010 1.001-1.035 PH UA (BEAKER) (test eelz=670) 5.5 5.0-8.0 PROTEIN UA (BEAKER) (test joga=449) Negative Negative GLUCOSE UA (BEAKER) (test tafq=676) Negative Negative KETONES UA (BEAKER) (test whmx=103) Negative Negative BILIRUBIN UA (BEAKER) (test aqio=925) Negative Negative BLOOD UA (BEAKER) (test sqou=784) Small Negative NITRITE UA (BEAKER) (test ltcl=119) Negative Negative LEUKOCYTE ESTERASE UA (BEAKER) (test nnyl=464) Negative Negative UROBILINOGEN UA (BEAKER) (test qtke=819) 0.2 mg/dL 0.2-1.0 RBC UA (BEAKER) (test fvdw=411) 38 /HPF WBC UA (BEAKER) (test conn=899) 7 /HPF SQUAMOUS EPITHELIAL (BEAKER) (test kksi=730) 18 /HPF AMORPHOUS CRYSTALS (BEAKER) (test krpg=8060) Rare SOURCE(BEAKER) (test cvhk=2175) OSMOLALITY, [id number] 14:40:00 Test Item Value Reference Range Comments OSMOLALITY URINE (BEAKER) (test jsbu=452) 284 mOsm/kg 40-1,400 [id number] 13:34:00 Test Item Value Reference Range Comments PROCALCITONIN (BEAKER) (test qtxy=2390) 0.25 ng/mL <0.05 SEPSIS RISK (ng/mL)Low: 0.05-0.50Intermediate: 0.51-2.00High: & gt;=2.01OSMOLALITY, [id number] 12:43:00 Test Item Value Reference Range Comments OSMOLALITY URINE (BEAKER) (test hklb=231) 316 mOsm/kg 40-1,400 OSMOLALITY, [id number] 12:41:00 Test Item Value Reference Range Comments OSMOLALITY, SERUM (BEAKER) (test wgjo=694) 259 mOsm/kg 275-295 TSH/FREE T4 IF [id number] 11:36:00 Test Item Value Reference Range Comments THYROID STIMULATING HORMONE (BEAKER) (test 2.55 uIU/mL 0.35-4.94 tkmx=960) [id number] 11:34:00 Test Item Value Reference Range Comments CORTISOL, TOTAL (BEAKER) (test dcmj=0230) 7.9 ug/dL 3.7-19.4 SODIUM, RANDOM [id number] 11:34:00 Test Item Value Reference Range Comments SODIUM URINE (BEAKER) (test ljif=561) < meq/L Reference Range: No NormalsBASIC METABOLIC [id number] 11:24:00 Test Item Value Reference Range Comments SODIUM (BEAKER) (test 113 meq/L 136-145 bbol=620) POTASSIUM (BEAKER) (test 5.3 meq/L 3.5-5.1 iwwm=453) CHLORIDE (BEAKER) (test 86 meq/L 98-107 kunu=588) CO2 (BEAKER) (test 21 meq/L 22-29 wpiv=892) BLOOD UREA NITROGEN 39 mg/dL 7-21 (BEAKER) (test zxoq=844) CREATININE (BEAKER) (test 1.57 mg/dL 0.57-1.25 ylhk=523) GLUCOSE RANDOM (BEAKER) 64 mg/dL 70-105 (test khhc=719) CALCIUM (BEAKER) (test 9.1 mg/dL 8.4-10.2 lvuh=600) EGFR (BEAKER) (test 46 mL/min/1.73 sq m ESTIMATED GFR IS NOT pajz=0370) ACCURATE CREATININE CLEARANCE IN PREDICTING GLOMERULAR FILTRATION RATE. ESTIMATED GFR IS NOT APPLICABLE FOR DIALYSIS PATIENTS. Specimen slightly ictericURIC [id number] 11:21:00 Test Item Value Reference Range Comments URIC ACID (BEAKER) (test novx=965) 8.2 mg/dL 2.6-7.2 Specimen slightly ictericCREATININE, RANDOM [id number] 11:21:00 Test Item Value Reference Range Comments CREATININE URINE (BEAKER) (test txas=810) 81.9 mg/dL Reference Range: No NormalsPOTASSIUM, RANDOM [id number] 11:21:00 Test Item Value Reference Range Comments POTASSIUM URINE (BEAKER) (test turl=666) 19.2 meq/L Reference Range: No NormalsCBC W/PLT COUNT & AUTO [id number] 10: 20:00 Test Item Value Reference Range Comments WHITE BLOOD CELL COUNT (BEAKER) (test jbjv=942) 10.9 K/ L 3.5-10.5 RED BLOOD CELL COUNT (BEAKER) (test yrwg=872) 2.46 M/ L 4.63-6.08 HEMOGLOBIN (BEAKER) (test lnix=579) 7.9 GM/DL 13.7-17.5 HEMATOCRIT (BEAKER) (test xebk=485) 22.2 % 40.1-51.0 MEAN CORPUSCULAR VOLUME (BEAKER) (test aire=394) 90.2 fL 79.0-92.2 MEAN CORPUSCULAR HEMOGLOBIN (BEAKER) (test 32.1 pg 25.7-32.2 xeii=427) MEAN CORPUSCULAR HEMOGLOBIN CONC (BEAKER) (test 35.6 GM/DL 32.3-36.5 jjdw=934) RED CELL DISTRIBUTION WIDTH (BEAKER) (test 14.2 % 11.6-14.4 ilik=216) PLATELET COUNT (BEAKER) (test ccnh=890) 82 K/CU MM 150-450 MEAN PLATELET VOLUME (BEAKER) (test ugjh=263) 8.3 fL 9.4-12.4 NUCLEATED RED BLOOD CELLS (BEAKER) (test 0 /100 WBC 0-0 cxjb=161) (CELLAVISION MANUAL DIFF)[id number] 10:20:00 Test Item Value Reference Range Comments NEUTROPHILS - REL (CELLAVISION)(BEAKER) (test 80 % bvvs=3086) LYMPHOCYTES - REL (CELLAVISION)(BEAKER) (test 2 % ityl=7914) MONOCYTES - REL (CELLAVISION)(BEAKER) (test 6 % eayh=3765) BANDS - REL (CELLAVISION)(BEAKER) (test 12 % 0-10 bgqq=1238) NEUTROPHILS - ABS (CELLAVISION)(BEAKER) (test 8.72 K/ul 1.78-5.38 nvjk=2574) LYMPHOCYTES - ABS (CELLAVISION)(BEAKER) (test 0.22 K/ul 1.32-3.57 dsck=4902) MONOCYTES - ABS (CELLAVISION)(BEAKER) (test 0.65 K/uL 0.30-0.82 gniq=5303) BANDS - ABS (CELLAVISION)(BEAKER) (test 1.31 K/uL 0.00-0.80 ncse=9426) TOTAL COUNTED (BEAKER) (test pono=5261) 100 WBC MORPHOLOGY (BEAKER) (test ekzx=207) Normal PLT MORPHOLOGY (BEAKER) (test giim=777) Normal POLYCHROMATOPHILLIC RBCS(BEAKER) (test pkou=888) 2+ moderate ANISOCYTOSIS (BEAKER) (test radv=152) 2+ moderate POIKILOCYTES (BEAKER) (test bllo=949) 2+ moderate ARTIFACT (CELLAVISION)(BEAKER) (test daav=6221) Present PLATELET CONCENTRATION (CELLAVISION)(BEAKER) Decreased (test oaqx=9240) Received comment: User comments: Slide comments:COMPREHENSIVE METABOLIC [id number] 09:30:00 Test Item Value Reference Range Comments TOTAL PROTEIN (BEAKER) 5.2 gm/dL 6.0-8.3 (test uava=732) ALBUMIN (BEAKER) (test 3.0 g/dL 3.5-5.0 azrm=0127) ALKALINE PHOSPHATASE 158 U/L 40-150 (BEAKER) (test jwje=419) BILIRUBIN TOTAL (BEAKER) 2.9 mg/dL 0.2-1.2 (test qqms=234) SODIUM (BEAKER) (test 111 meq/L 136-145 qiyf=971) POTASSIUM (BEAKER) (test 5.5 meq/L 3.5-5.1 fenm=395) CHLORIDE (BEAKER) (test 87 meq/L 98-107 tmyf=776) CO2 (BEAKER) (test 20 meq/L 22-29 laok=847) BLOOD UREA NITROGEN 39 mg/dL 7-21 (BEAKER) (test vteb=438) CREATININE (BEAKER) (test 1.55 mg/dL 0.57-1.25 dyyr=458) GLUCOSE RANDOM (BEAKER) 79 mg/dL 70-105 (test piqi=381) CALCIUM (BEAKER) (test 9.0 mg/dL 8.4-10.2 bkbc=389) AST (SGOT) (BEAKER) (test 27 U/L 5-34 amzi=419) ALT (SGPT) (BEAKER) (test 9 U/L 6-55 ietk=845) EGFR (BEAKER) (test 47 mL/min/1.73 sq m ESTIMATED GFR IS NOT pfhr=5845) ACCURATE CREATININE CLEARANCE IN PREDICTING GLOMERULAR FILTRATION RATE. ESTIMATED GFR IS NOT APPLICABLE FOR DIALYSIS PATIENTS. Specimen slightly ictericLACTIC ACID, VENOUS, WHOLE [id number] 09:15:00 Test Item Value Reference Range Comments LACTATE BLOOD VENOUS (2) (BEAKER) (test 0.9 mmol/L 0.5-2.2 linw=1240) Effective 02/28/2016: Units/Reference Range ChangeNew: 0.5-2.2 mmol/L Previous: 5 -20 mg/dLSpecimen slightly [id number] 09:01:00 Test Item Value Reference Range Comments AMMONIA (BEAKER) (test tqvu=703) 83 mol/L 18-72 [id number] 08:54:00 Test Item Value Reference Range Comments PROTIME (BEAKER) (test usjp=539) 21.4 seconds 11.7-14.7 INR (BEAKER) (test lase=205) 1.9 <=5.9 PARTIAL THROMBOPLASTIN TIME (BEAKER) (test 44.2 seconds 22.5-36.0 ftpj=784) RECOMMENDED COUMADIN/WARFARIN INR THERAPY RANGESSTANDARD DOSE: 2.0 - 3.0 Includes: PROPHYLAXIS forvenous thrombosis, systemic embolization; TREATMENT for venous thrombosis and/or pulmonary embolus.HIGH RISK: Target INR is 2.5-3.5 for patients with mechanical heart valves.PROTHROMBIN [id number] 08:53: 00 Test Item Value Reference Range Comments PROTIME (BEAKER) (test vfzj=657) 21.4 seconds 11.7-14.7 INR (BEAKER) (test phud=742) 1.9 <=5.9 RECOMMENDED COUMADIN/WARFARIN INR THERAPY RANGESSTANDARD DOSE: 2.0 - 3.0 Includes: PROPHYLAXIS forvenous thrombosis, systemic embolization; TREATMENT for venous thrombosis and/or pulmonary embolus.HIGH RISK: Target INR is 2.5-3.5 for patients with mechanical heart valves.COMPREHENSIVE METABOLIC [id number] 13:54:00 Test Item Value Reference Range Comments TOTAL PROTEIN (BEAKER) 6.2 gm/dL 6.0-8.3 (test cntq=510) ALBUMIN (BEAKER) (test 3.4 g/dL 3.5-5.0 rogd=0718) ALKALINE PHOSPHATASE 190 U/L 40-150 (BEAKER) (test cydg=891) BILIRUBIN TOTAL (BEAKER) 1.9 mg/dL 0.2-1.2 (test ypvr=308) SODIUM (BEAKER) (test 125 meq/L 136-145 xunr=022) POTASSIUM (BEAKER) (test 5.0 meq/L 3.5-5.1 gbkr=178) CHLORIDE (BEAKER) (test 99 meq/L 98-107 qudf=381) CO2 (BEAKER) (test 19 meq/L 22-29 mwcy=452) BLOOD UREA NITROGEN 36 mg/dL 7-21 (BEAKER) (test ofie=538) CREATININE (BEAKER) (test 1.65 mg/dL 0.57-1.25 blpf=865) GLUCOSE RANDOM (BEAKER) 133 mg/dL 70-105 (test clgb=583) CALCIUM (BEAKER) (test 9.5 mg/dL 8.4-10.2 pquy=756) AST (SGOT) (BEAKER) (test 23 U/L 5-34 xtdd=081) ALT (SGPT) (BEAKER) (test 12 U/L 6-55 uiiz=241) EGFR (BEAKER) (test 44 mL/min/1.73 sq m ESTIMATED GFR IS NOT jykg=7035) ACCURATE CREATININE CLEARANCE IN PREDICTING GLOMERULAR FILTRATION RATE. ESTIMATED GFR IS NOT APPLICABLE FOR DIALYSIS PATIENTS. BILIRUBIN, [id number] 13:54:00 Test Item Value Reference Range Comments BILIRUBIN DIRECT (BEAKER) (test wewc=215) 1.4 mg/dL 0.1-0.5 CBC W/PLT COUNT & AUTO [id number] 13:50:00 Test Item Value Reference Range Comments WHITE BLOOD CELL COUNT (BEAKER) (test wffw=236) 6.8 K/ L 3.5-10.5 RED BLOOD CELL COUNT (BEAKER) (test nxxh=806) 3.01 M/ L 4.63-6.08 HEMOGLOBIN (BEAKER) (test ysoc=620) 9.5 GM/DL 13.7-17.5 HEMATOCRIT (BEAKER) (test wixm=244) 28.3 % 40.1-51.0 MEAN CORPUSCULAR VOLUME (BEAKER) (test mkng=203) 94.0 fL 79.0-92.2 MEAN CORPUSCULAR HEMOGLOBIN (BEAKER) (test 31.6 pg 25.7-32.2 tkit=756) MEAN CORPUSCULAR HEMOGLOBIN CONC (BEAKER) (test 33.6 GM/DL 32.3-36.5 tthv=562) RED CELL DISTRIBUTION WIDTH (BEAKER) (test 14.5 % 11.6-14.4 crpb=339) PLATELET COUNT (BEAKER) (test cbaa=277) 131 K/CU MM 150-450 MEAN PLATELET VOLUME (BEAKER) (test usae=086) 9.0 fL 9.4-12.4 NUCLEATED RED BLOOD CELLS (BEAKER) (test 0 /100 WBC 0-0 ikpk=759) NEUTROPHILS RELATIVE PERCENT (BEAKER) (test 75 % wehr=460) LYMPHOCYTES RELATIVE PERCENT (BEAKER) (test 7 % qmnd=739) MONOCYTES RELATIVE PERCENT (BEAKER) (test 14 % awmp=947) EOSINOPHILS RELATIVE PERCENT (BEAKER) (test 2 % fvkm=761) BASOPHILS RELATIVE PERCENT (BEAKER) (test 0 % torp=094) NEUTROPHILS ABSOLUTE COUNT (BEAKER) (test 5.11 K/ L 1.78-5.38 fjxl=690) LYMPHOCYTES ABSOLUTE COUNT (BEAKER) (test 0.50 K/ L 1.32-3.57 lrmw=350) MONOCYTES ABSOLUTE COUNT (BEAKER) (test 0.94 K/ L 0.30-0.82 tpto=889) EOSINOPHILS ABSOLUTE COUNT (BEAKER) (test 0.12 K/ L 0.04-0.54 kaau=320) BASOPHILS ABSOLUTE COUNT (BEAKER) (test 0.03 K/ L 0.01-0.08 xgre=598) IMMATURE GRANULOCYTES-RELATIVE PERCENT (BEAKER) 1 % 0-1 (test ouyo=5932) PROTHROMBIN [id number] 13:46:00 Test Item Value Reference Range Comments PROTIME (BEAKER) (test hhbp=932) 19.5 seconds 11.7-14.7 INR (BEAKER) (test dkzg=958) 1.7 <=5.9 RECOMMENDED COUMADIN/WARFARIN INR THERAPY RANGESSTANDARD DOSE: 2.0 - 3.0 Includes: PROPHYLAXIS forvenous thrombosis, systemic embolization; TREATMENT for venous thrombosis and/or pulmonary embolus.HIGH RISK: Target INR is 2.5-3.5 for patients with mechanical heart valves.BONE AND/OR JOINT IMAGING, WHOLE [id number] 16:45:00FINAL REPORT PROCEDURE: BONE SCAN, WHOLE BODY CPT CODE: [id number] INDICATION: L3 vertebral body lesion follow-up R91.1 [...] CT Abdomen/Pelvis dated 05/08/2018. Signed: Prakash Reid MDReport Verified Date/ Time: 08/05/2018 16:45:34 Reading Location: [address] Reading Room NIR, VERTEBROPLASTY THORACIC, [id number] 17:23:00Reason for exam:->T11, T12, L2 compression fracturesAddendum [...] Rain MDReport Verified Date/Time: 06/04/2018 17:23:27 Reading Location : [address] Radiology Reading RoomAddendum EndsFINAL REPORT HISTORY: [...] Verified Date/Time: 06/03/2018 17:56:43 Reading Location : [place] [address] Angio Body Reading Room ALPHA FETOPROTEIN (AFP), TUMOR [id number] 15:20:00 Test Item Value Reference Range Comments ALPHA-FETOPROTEIN (BEAKER) (test umie=8892) 2.2 ng/mL <10.0 COMPREHENSIVE METABOLIC [id number] 14:54:00 Test Item Value Reference Range Comments TOTAL PROTEIN (BEAKER) 6.5 gm/dL 6.0-8.3 (test tkdq=349) ALBUMIN (BEAKER) (test 3.6 g/dL 3.5-5.0 xthx=9435) ALKALINE PHOSPHATASE 342 U/L 40-150 (BEAKER) (test lout=602) BILIRUBIN TOTAL (BEAKER) 4.2 mg/dL 0.2-1.2 (test oxsv=419) SODIUM (BEAKER) (test 128 meq/L 136-145 lljn=638) POTASSIUM (BEAKER) (test 4.6 meq/L 3.5-5.1 kpgi=973) CHLORIDE (BEAKER) (test 100 meq/L 98-107 jyee=506) CO2 (BEAKER) (test 21 meq/L 22-29 vwpc=071) BLOOD UREA NITROGEN 21 mg/dL 7-21 (BEAKER) (test sccl=069) CREATININE (BEAKER) (test 1.37 mg/dL 0.57-1.25 gtmn=558) GLUCOSE RANDOM (BEAKER) 108 mg/dL 70-105 (test jdyh=475) CALCIUM (BEAKER) (test 9.5 mg/dL 8.4-10.2 auhh=404) AST (SGOT) (BEAKER) (test 25 U/L 5-34 quoi=595) ALT (SGPT) (BEAKER) (test 10 U/L 6-55 iwsd=461) EGFR (BEAKER) (test 54 mL/min/1.73 sq m ESTIMATED GFR IS NOT upxc=3265) ACCURATE CREATININE CLEARANCE IN PREDICTING GLOMERULAR FILTRATION RATE. ESTIMATED GFR IS NOT APPLICABLE FOR DIALYSIS PATIENTS. Specimen slightly ictericBILIRUBIN, [id number] 14:54:00 Test Item Value Reference Range Comments BILIRUBIN DIRECT (BEAKER) (test eowq=103) 2.1 mg/dL 0.1-0.5 CBC W/PLT COUNT & AUTO [id number] 14:52:00 Test Item Value Reference Range Comments WHITE BLOOD CELL COUNT (BEAKER) (test vtye=978) 3.9 K/ L 3.5-10.5 RED BLOOD CELL COUNT (BEAKER) (test yeki=669) 2.69 M/ L 4.63-6.08 HEMOGLOBIN (BEAKER) (test azha=007) 9.1 GM/DL 13.7-17.5 HEMATOCRIT (BEAKER) (test xpbb=712) 27.3 % 40.1-51.0 MEAN CORPUSCULAR VOLUME (BEAKER) (test ahqe=584) 101.5 fL 79.0-92.2 MEAN CORPUSCULAR HEMOGLOBIN (BEAKER) (test 33.8 pg 25.7-32.2 hzuc=568) MEAN CORPUSCULAR HEMOGLOBIN CONC (BEAKER) (test 33.3 GM/DL 32.3-36.5 saqr=528) RED CELL DISTRIBUTION WIDTH (BEAKER) (test 18.6 % 11.6-14.4 yuku=762) PLATELET COUNT (BEAKER) (test ktyk=758) 71 K/CU MM 150-450 MEAN PLATELET VOLUME (BEAKER) (test hron=548) 9.6 fL 9.4-12.4 NUCLEATED RED BLOOD CELLS (BEAKER) (test 0 /100 WBC 0-0 nrrt=057) NEUTROPHILS RELATIVE PERCENT (BEAKER) (test 62 % qsgd=742) LYMPHOCYTES RELATIVE PERCENT (BEAKER) (test 16 % svuy=376) MONOCYTES RELATIVE PERCENT (BEAKER) (test 17 % oadr=787) EOSINOPHILS RELATIVE PERCENT (BEAKER) (test 5 % lukr=072) BASOPHILS RELATIVE PERCENT (BEAKER) (test 0 % dcwa=299) NEUTROPHILS ABSOLUTE COUNT (BEAKER) (test 2.41 K/ L 1.78-5.38 xpwn=426) LYMPHOCYTES ABSOLUTE COUNT (BEAKER) (test 0.62 K/ L 1.32-3.57 aypr=719) MONOCYTES ABSOLUTE COUNT (BEAKER) (test gkgi=847) 0.65 K/ L 0.30-0.82 EOSINOPHILS ABSOLUTE COUNT (BEAKER) (test 0.20 K/ L 0.04-0.54 ppoa=149) BASOPHILS ABSOLUTE COUNT (BEAKER) (test fhzn=043) 0.01 K/ L 0.01-0.08 IMMATURE GRANULOCYTES-RELATIVE PERCENT (BEAKER) 0 % 0-1 (test elnb=1163) PROTHROMBIN TIME/[id number] 14:50:00 Test Item Value Reference Range Comments PROTIME (BEAKER) (test qjvf=381) 19.5 seconds 11.7-14.7 INR (BEAKER) (test iruw=724) 1.7 <=5.9 RECOMMENDED COUMADIN/WARFARIN INR THERAPY RANGESSTANDARD DOSE: 2.0 - 3.0 Includes: PROPHYLAXIS forvenous thrombosis, systemic embolization; TREATMENT for venous thrombosis and/or pulmonary embolus.HIGH RISK: Target INR is 2.5-3.5 for patients with mechanical heart valves.BODY FLUID CULTURE + GRAM [id number] 13:19:00 Test Item Value Reference Range Comments CULTURE (BEAKER) (test dfac=8806) No growth GRAM STAIN RESULT (BEAKER) (test No WBCs wwew=8908) GRAM STAIN RESULT (BEAKER) (test No organisms seen yxtl=28242) [id number] 17:36:00 Test Item Value Reference Range Comments SODIUM (BEAKER) (test lgjo=861) 133 meq/L 136-145 POTASSIUM (BEAKER) (test ezlg=061) 3.2 meq/L 3.5-5.1 CHLORIDE (BEAKER) (test phxt=173) 102 meq/L 98-107 CO2 (BEAKER) (test sdhg=761) 21 meq/L 22-29 [id number] 13:21:00 Test Item Value Reference Range Comments SODIUM (BEAKER) (test efog=502) 134 meq/L 136-145 POTASSIUM (BEAKER) (test gvji=554) 3.0 meq/L 3.5-5.1 CHLORIDE (BEAKER) (test zesk=923) 103 meq/L 98-107 CO2 (BEAKER) (test fvwp=436) 22 meq/L 22-29 CALCIUM, [id number] 04:54:00 Test Item Value Reference Range Comments CALCIUM IONIZED (BEAKER) (test vyar=982) 1.09 mmol/L 1.12-1.27 PH, BLOOD (BEAKER) (test oguw=3866) 7.35 [id number] 04:04:00 Test Item Value Reference Range Comments PHOSPHORUS (BEAKER) (test dxua=979) 2.4 mg/dL 2.3-4.7 [id number] 04:04:00 Test Item Value Reference Range Comments MAGNESIUM (BEAKER) (test ober=762) 2.0 mg/dL 1.6-2.6 HEPATIC FUNCTION [id number] 04:04:00 Test Item Value Reference Range Comments TOTAL PROTEIN (BEAKER) (test zmbq=163) 5.8 gm/dL 6.0-8.3 ALBUMIN (BEAKER) (test uaky=7381) 4.1 g/dL 3.5-5.0 BILIRUBIN TOTAL (BEAKER) (test hyng=925) 3.9 mg/dL 0.2-1.2 BILIRUBIN DIRECT (BEAKER) (test qhtg=969) 2.0 mg/dL 0.1-0.5 ALKALINE PHOSPHATASE (BEAKER) (test zkgt=448) 123 U/L 40-150 AST (SGOT) (BEAKER) (test eyal=861) 14 U/L 5-34 ALT (SGPT) (BEAKER) (test shuv=630) < U/L 6-55 Specimen slightly ictericCOMPREHENSIVE METABOLIC [id number] 04:04:00 Test Item Value Reference Range Comments TOTAL PROTEIN (BEAKER) 5.8 gm/dL 6.0-8.3 (test kgpg=301) ALBUMIN (BEAKER) (test 4.1 g/dL 3.5-5.0 agpi=6438) ALKALINE PHOSPHATASE 123 U/L 40-150 (BEAKER) (test mkhm=887) BILIRUBIN TOTAL (BEAKER) 3.9 mg/dL 0.2-1.2 (test jqzo=277) SODIUM (BEAKER) (test 135 meq/L 136-145 lkig=906) POTASSIUM (BEAKER) (test 2.9 meq/L 3.5-5.1 piey=044) CHLORIDE (BEAKER) (test 103 meq/L 98-107 bbqb=706) CO2 (BEAKER) (test 21 meq/L 22-29 lhgu=276) BLOOD UREA NITROGEN 18 mg/dL 7-21 (BEAKER) (test pcyj=282) CREATININE (BEAKER) (test 1.32 mg/dL 0.57-1.25 fffv=413) GLUCOSE RANDOM (BEAKER) 126 mg/dL 70-105 (test yogy=616) CALCIUM (BEAKER) (test 9.8 mg/dL 8.4-10.2 mfus=741) AST (SGOT) (BEAKER) (test 14 U/L 5-34 nmux=663) ALT (SGPT) (BEAKER) (test < U/L 6-55 mizk=502) EGFR (BEAKER) (test 57 mL/min/1.73 sq m ESTIMATED GFR IS NOT zlap=0931) ACCURATE CREATININE CLEARANCE IN PREDICTING GLOMERULAR FILTRATION RATE. ESTIMATED GFR IS NOT APPLICABLE FOR DIALYSIS PATIENTS. Specimen slightly ictericPROTHROMBIN [id number] 04:02:00 Test Item Value Reference Range Comments PROTIME (BEAKER) (test anvb=134) 25.1 seconds 11.7-14.7 INR (BEAKER) (test nvxv=003) 2.3 <=5.9 RECOMMENDED COUMADIN/WARFARIN INR THERAPY RANGESSTANDARD DOSE: 2.0 - 3.0 Includes: PROPHYLAXIS forvenous thrombosis, systemic embolization; TREATMENT for venous thrombosis and/or pulmonary embolus.HIGH RISK: Target INR is 2.5-3.5 for patients with mechanical heart valves.CBC W/PLT COUNT & AUTO [id number] 03:55:00 Test Item Value Reference Range Comments WHITE BLOOD CELL COUNT (BEAKER) (test xxyj=744) 3.6 K/ L 3.5-10.5 RED BLOOD CELL COUNT (BEAKER) (test reje=023) 2.48 M/ L 4.63-6.08 HEMOGLOBIN (BEAKER) (test fmpd=635) 7.9 GM/DL 13.7-17.5 HEMATOCRIT (BEAKER) (test layi=814) 23.7 % 40.1-51.0 MEAN CORPUSCULAR VOLUME (BEAKER) (test ptaw=566) 95.6 fL 79.0-92.2 MEAN CORPUSCULAR HEMOGLOBIN (BEAKER) (test 31.9 pg 25.7-32.2 smod=525) MEAN CORPUSCULAR HEMOGLOBIN CONC (BEAKER) (test 33.3 GM/DL 32.3-36.5 mgmw=659) RED CELL DISTRIBUTION WIDTH (BEAKER) (test 18.8 % 11.6-14.4 jmld=774) PLATELET COUNT (BEAKER) (test okks=657) 38 K/CU MM 150-450 MEAN PLATELET VOLUME (BEAKER) (test ypeo=539) 9.3 fL 9.4-12.4 NUCLEATED RED BLOOD CELLS (BEAKER) (test 0 /100 WBC 0-0 nhow=291) NEUTROPHILS RELATIVE PERCENT (BEAKER) (test 57 % thdi=462) LYMPHOCYTES RELATIVE PERCENT (BEAKER) (test 15 % depl=223) MONOCYTES RELATIVE PERCENT (BEAKER) (test 22 % lfdi=029) EOSINOPHILS RELATIVE PERCENT (BEAKER) (test 4 % owed=817) BASOPHILS RELATIVE PERCENT (BEAKER) (test 0 % ryhq=382) NEUTROPHILS ABSOLUTE COUNT (BEAKER) (test 2.09 K/ L 1.78-5.38 cigh=437) LYMPHOCYTES ABSOLUTE COUNT (BEAKER) (test 0.54 K/ L 1.32-3.57 qpir=275) MONOCYTES ABSOLUTE COUNT (BEAKER) (test vqev=892) 0.81 K/ L 0.30-0.82 EOSINOPHILS ABSOLUTE COUNT (BEAKER) (test 0.15 K/ L 0.04-0.54 srvh=880) BASOPHILS ABSOLUTE COUNT (BEAKER) (test mzil=339) 0.01 K/ L 0.01-0.08 IMMATURE GRANULOCYTES-RELATIVE PERCENT (BEAKER) 1 % 0-1 (test gbvv=2351) [id number] 18:07:00 Test Item Value Reference Range Comments SODIUM (BEAKER) (test bjux=821) 132 meq/L 136-145 POTASSIUM (BEAKER) (test 2.9 meq/L 3.5-5.1 Specimen slightly hemolyzed tosk=445) CHLORIDE (BEAKER) (test 101 meq/L 98-107 ngxq=636) CO2 (BEAKER) (test foit=388) 18 meq/L 22-29 LACTIC ACID, VENOUS, WHOLE [id number] 16:43:00 Test Item Value Reference Range Comments LACTATE BLOOD VENOUS (2) 1.6 mmol/L 0.5-2.2 Specimen slightly hemolyzed (BEAKER) (test pcqy=9471) Effective 02/28/2016: Units/Reference Range ChangeNew: 0.5-2.2 mmol/L Previous: 5 -20 mg/dLSpecimen slightly ictericBODY FLUID CULTURE + GRAM [id number] 12: 08:00 Test Item Value Reference Range Comments CULTURE (BEAKER) (test yvgv=4921) No growth GRAM STAIN RESULT (BEAKER) (test <1+ WBCs dvdn=4998) GRAM STAIN RESULT (BEAKER) (test No organisms seen bmkk=01165) [id number] 08:10:00 Test Item Value Reference Range Comments PHOSPHORUS (BEAKER) (test ksrh=008) 2.8 mg/dL 2.3-4.7 [id number] 08:10:00 Test Item Value Reference Range Comments MAGNESIUM (BEAKER) (test dpix=529) 2.2 mg/dL 1.6-2.6 COMPREHENSIVE METABOLIC [id number] 08:10:00 Test Item Value Reference Range Comments TOTAL PROTEIN (BEAKER) 6.2 gm/dL 6.0-8.3 (test qfqz=015) ALBUMIN (BEAKER) (test 4.4 g/dL 3.5-5.0 sveh=4545) ALKALINE PHOSPHATASE 121 U/L 40-150 (BEAKER) (test vkbu=789) BILIRUBIN TOTAL (BEAKER) 4.4 mg/dL 0.2-1.2 (test gwjv=914) SODIUM (BEAKER) (test 135 meq/L 136-145 qfvu=289) POTASSIUM (BEAKER) (test 2.8 meq/L 3.5-5.1 bddp=855) CHLORIDE (BEAKER) (test 102 meq/L 98-107 vkag=630) CO2 (BEAKER) (test 21 meq/L 22-29 ifwz=392) BLOOD UREA NITROGEN 20 mg/dL 7-21 (BEAKER) (test hfyn=405) CREATININE (BEAKER) (test 1.34 mg/dL 0.57-1.25 fmax=978) GLUCOSE RANDOM (BEAKER) 132 mg/dL 70-105 (test efkv=482) CALCIUM (BEAKER) (test 10.0 mg/dL 8.4-10.2 bvej=490) AST (SGOT) (BEAKER) (test 16 U/L 5-34 ayhy=083) ALT (SGPT) (BEAKER) (test 6 U/L 6-55 uerj=869) EGFR (BEAKER) (test 56 mL/min/1.73 sq m ESTIMATED GFR IS NOT rskj=7387) ACCURATE CREATININE CLEARANCE IN PREDICTING GLOMERULAR FILTRATION RATE. ESTIMATED GFR IS NOT APPLICABLE FOR DIALYSIS PATIENTS. Specimen slightly ictericHEPATIC FUNCTION [id number] 08:10:00 Test Item Value Reference Range Comments TOTAL PROTEIN (BEAKER) (test buws=903) 6.2 gm/dL 6.0-8.3 ALBUMIN (BEAKER) (test prls=4927) 4.4 g/dL 3.5-5.0 BILIRUBIN TOTAL (BEAKER) (test hlrl=146) 4.4 mg/dL 0.2-1.2 BILIRUBIN DIRECT (BEAKER) (test jfeo=600) 1.9 mg/dL 0.1-0.5 ALKALINE PHOSPHATASE (BEAKER) (test aedl=307) 121 U/L 40-150 AST (SGOT) (BEAKER) (test cdxt=755) 16 U/L 5-34 ALT (SGPT) (BEAKER) (test llup=451) 6 U/L 6-55 Specimen slightly ictericCALCIUM, [id number] 07:20:00 Test Item Value Reference Range Comments CALCIUM IONIZED (BEAKER) (test feys=973) 1.01 mmol/L 1.12-1.27 PH, BLOOD (BEAKER) (test wehf=3849) 7.49 CBC W/PLT COUNT & AUTO [id number] 06:59:00 Test Item Value Reference Range Comments WHITE BLOOD CELL COUNT (BEAKER) (test amvz=349) 4.1 K/ L 3.5-10.5 RED BLOOD CELL COUNT (BEAKER) (test pjyv=227) 2.62 M/ L 4.63-6.08 HEMOGLOBIN (BEAKER) (test vcte=541) 8.2 GM/DL 13.7-17.5 HEMATOCRIT (BEAKER) (test brae=577) 24.9 % 40.1-51.0 MEAN CORPUSCULAR VOLUME (BEAKER) (test grbq=943) 95.0 fL 79.0-92.2 MEAN CORPUSCULAR HEMOGLOBIN (BEAKER) (test 31.3 pg 25.7-32.2 sqvf=065) MEAN CORPUSCULAR HEMOGLOBIN CONC (BEAKER) (test 32.9 GM/DL 32.3-36.5 nztp=494) RED CELL DISTRIBUTION WIDTH (BEAKER) (test 18.6 % 11.6-14.4 kleh=881) PLATELET COUNT (BEAKER) (test cdhb=126) 38 K/CU MM 150-450 MEAN PLATELET VOLUME (BEAKER) (test udvu=072) 9.3 fL 9.4-12.4 NUCLEATED RED BLOOD CELLS (BEAKER) (test 0 /100 WBC 0-0 kljf=844) NEUTROPHILS RELATIVE PERCENT (BEAKER) (test 66 % hkij=011) LYMPHOCYTES RELATIVE PERCENT (BEAKER) (test 12 % ywro=051) MONOCYTES RELATIVE PERCENT (BEAKER) (test 18 % wkxq=135) EOSINOPHILS RELATIVE PERCENT (BEAKER) (test 3 % yojm=889) BASOPHILS RELATIVE PERCENT (BEAKER) (test 1 % ucka=874) NEUTROPHILS ABSOLUTE COUNT (BEAKER) (test 2.74 K/ L 1.78-5.38 hpfh=896) LYMPHOCYTES ABSOLUTE COUNT (BEAKER) (test 0.49 K/ L 1.32-3.57 fusv=821) MONOCYTES ABSOLUTE COUNT (BEAKER) (test xssa=977) 0.75 K/ L 0.30-0.82 EOSINOPHILS ABSOLUTE COUNT (BEAKER) (test 0.11 K/ L 0.04-0.54 odyj=969) BASOPHILS ABSOLUTE COUNT (BEAKER) (test bjyv=583) 0.02 K/ L 0.01-0.08 IMMATURE GRANULOCYTES-RELATIVE PERCENT (BEAKER) 1 % 0-1 (test xpzp=4275) PROTHROMBIN [id number] 06:56:00 Test Item Value Reference Range Comments PROTIME (BEAKER) (test hgkf=339) 24.5 seconds 11.7-14.7 INR (BEAKER) (test boor=697) 2.2 <=5.9 RECOMMENDED COUMADIN/WARFARIN INR THERAPY RANGESSTANDARD DOSE: 2.0 - 3.0 Includes: PROPHYLAXIS forvenous thrombosis, systemic embolization; TREATMENT for venous thrombosis and/or pulmonary embolus.HIGH RISK: Target INR is 2.5-3.5 for patients with mechanical heart valves.BODY FLUID CELL COUNT WITH [id number] 18:36:00 Test Item Value Reference Range Comments APPEARANCE FLUID (BEAKER) (test qqyl=796) Hazy Clear COLOR FLUID (BEAKER) (test jhgt=832) Yellow Colorless, Straw RBC FLUID (BEAKER) (test wztj=898) 2000 /cu mm <=1 ADJUSTED WBC FLUID (BEAKER) (test pneb=4184) 96 /cu mm <=5 LINING CELLS (BEAKER) (test fjqj=0374) 2 /cu mm <=1 NEUTROPHILS FLUID (BEAKER) (test kqrx=5609) 4 % LYMPHS FLUID (BEAKER) (test kcfk=234) 11 % MONO/MACROPHAGE FLUID (BEAKER) (test sqvl=993) 85 % EOSINOPHILS FLUID (BEAKER) (test rftl=258) 0 % BASO FLUID (BEAKER) (test nlfo=580) 0 % CONTAINER BODY FLUID (BEAKER) (test qiix=0270) EDTA Tube U/S, [id number] 12:49:00Limit to 4L due to AKIReason for exam:-> ascitesFINAL REPORT Indication: Ascites. Technique: Ultrasound guided paracentesis. Findings:Preliminary ultrasound confirms ascites. A safe window was identified in the midline (suprapubic). The procedure was explained to the patient and informed consent was signed. The skin was marked and prepped in standard sterile fashion. 2% lidocaine was used for local anesthesia. A 5 [place] needle catheter system was advanced into the peritoneal space. 3300 cc clear yellow fluid was taken off.Sample of the fluid was sent to the laboratory. Patient tolerated the procedure well. Impression: Ultrasound guided paracentesis. Signed: Aristeo Xiong [facility] Verified Date/ Time: 05/13/2018 12:49:12 Reading Location: [facility] [id number] Ultrasound Reading Room 12: 49 PMCALCIUM, [id number] 05:29:00 Test Item Value Reference Range Comments CALCIUM IONIZED (BEAKER) (test mruz=416) 1.10 mmol/L 1.12-1.27 PH, BLOOD (BEAKER) (test chyx=9827) 7.35 B-TYPE NATRIURETIC FACTOR (BNP)2018-05-13 04:48:00 Test Item Value Reference Range Comments B-TYPE NATRIURETIC PEPTIDE (BEAKER) (test 274 pg/mL 0-100 kdfl=165) [id number] 04:44:00 Test Item Value Reference Range Comments PHOSPHORUS (BEAKER) (test vtcv=646) 3.0 mg/dL 2.3-4.7 [id number] 04:44:00 Test Item Value Reference Range Comments MAGNESIUM (BEAKER) (test elmu=080) 2.0 mg/dL 1.6-2.6 COMPREHENSIVE METABOLIC [id number] 04:44:00 Test Item Value Reference Range Comments TOTAL PROTEIN (BEAKER) 6.2 gm/dL 6.0-8.3 (test plca=198) ALBUMIN (BEAKER) (test 4.3 g/dL 3.5-5.0 avkd=7586) ALKALINE PHOSPHATASE 134 U/L 40-150 (BEAKER) (test uxvj=211) BILIRUBIN TOTAL (BEAKER) 4.4 mg/dL 0.2-1.2 (test spir=240) SODIUM (BEAKER) (test 131 meq/L 136-145 adnu=033) POTASSIUM (BEAKER) (test 3.7 meq/L 3.5-5.1 jrmq=641) CHLORIDE (BEAKER) (test 96 meq/L 98-107 ouau=806) CO2 (BEAKER) (test 26 meq/L 22-29 nfam=877) BLOOD UREA NITROGEN 20 mg/dL 7-21 (BEAKER) (test wtvt=208) CREATININE (BEAKER) (test 1.60 mg/dL 0.57-1.25 mwlj=600) GLUCOSE RANDOM (BEAKER) 149 mg/dL 70-105 (test iloj=053) CALCIUM (BEAKER) (test 10.0 mg/dL 8.4-10.2 bgeb=610) AST (SGOT) (BEAKER) (test 18 U/L 5-34 ojom=217) ALT (SGPT) (BEAKER) (test 7 U/L 6-55 nrqe=358) EGFR (BEAKER) (test 46 mL/min/1.73 sq m ESTIMATED GFR IS NOT ixjr=1751) ACCURATE CREATININE CLEARANCE IN PREDICTING GLOMERULAR FILTRATION RATE. ESTIMATED GFR IS NOT APPLICABLE FOR DIALYSIS PATIENTS. Specimen slightly ictericHEPATIC FUNCTION [id number] 04:44:00 Test Item Value Reference Range Comments TOTAL PROTEIN (BEAKER) (test bnfy=952) 6.2 gm/dL 6.0-8.3 ALBUMIN (BEAKER) (test jtlo=5699) 4.3 g/dL 3.5-5.0 BILIRUBIN TOTAL (BEAKER) (test tpsy=612) 4.4 mg/dL 0.2-1.2 BILIRUBIN DIRECT (BEAKER) (test krqs=956) 2.4 mg/dL 0.1-0.5 ALKALINE PHOSPHATASE (BEAKER) (test oxbj=668) 134 U/L 40-150 AST (SGOT) (BEAKER) (test gesq=233) 18 U/L 5-34 ALT (SGPT) (BEAKER) (test wjgg=573) 7 U/L 6-55 Specimen slightly ictericPROTHROMBIN [id number] 04:30:00 Test Item Value Reference Range Comments PROTIME (BEAKER) (test mhry=425) 23.8 seconds 11.7-14.7 INR (BEAKER) (test rwxk=646) 2.1 <=5.9 RECOMMENDED COUMADIN/WARFARIN INR THERAPY RANGESSTANDARD DOSE: 2.0 - 3.0 Includes: PROPHYLAXIS forvenous thrombosis, systemic embolization; TREATMENT for venous thrombosis and/or pulmonary embolus.HIGH RISK: Target INR is 2.5-3.5 for patients with mechanical heart valves.CBC W/PLT COUNT & AUTO [id number] 04:19:00 Test Item Value Reference Range Comments WHITE BLOOD CELL COUNT (BEAKER) (test hxli=982) 4.0 K/ L 3.5-10.5 RED BLOOD CELL COUNT (BEAKER) (test cmsw=706) 2.60 M/ L 4.63-6.08 HEMOGLOBIN (BEAKER) (test gdpw=141) 8.2 GM/DL 13.7-17.5 HEMATOCRIT (BEAKER) (test muns=162) 24.6 % 40.1-51.0 MEAN CORPUSCULAR VOLUME (BEAKER) (test fvew=441) 94.6 fL 79.0-92.2 MEAN CORPUSCULAR HEMOGLOBIN (BEAKER) (test 31.5 pg 25.7-32.2 kmmm=465) MEAN CORPUSCULAR HEMOGLOBIN CONC (BEAKER) (test 33.3 GM/DL 32.3-36.5 fydn=862) RED CELL DISTRIBUTION WIDTH (BEAKER) (test 18.1 % 11.6-14.4 epwx=349) PLATELET COUNT (BEAKER) (test bowl=388) 46 K/CU MM 150-450 MEAN PLATELET VOLUME (BEAKER) (test itmh=385) 9.1 fL 9.4-12.4 NUCLEATED RED BLOOD CELLS (BEAKER) (test 0 /100 WBC 0-0 agli=788) NEUTROPHILS RELATIVE PERCENT (BEAKER) (test 62 % ibdm=470) LYMPHOCYTES RELATIVE PERCENT (BEAKER) (test 13 % qesb=233) MONOCYTES RELATIVE PERCENT (BEAKER) (test 21 % ezpd=391) EOSINOPHILS RELATIVE PERCENT (BEAKER) (test 3 % zkxy=287) BASOPHILS RELATIVE PERCENT (BEAKER) (test 0 % saaw=282) NEUTROPHILS ABSOLUTE COUNT (BEAKER) (test 2.49 K/ L 1.78-5.38 swvn=581) LYMPHOCYTES ABSOLUTE COUNT (BEAKER) (test 0.53 K/ L 1.32-3.57 mpgt=193) MONOCYTES ABSOLUTE COUNT (BEAKER) (test xhhy=671) 0.86 K/ L 0.30-0.82 EOSINOPHILS ABSOLUTE COUNT (BEAKER) (test 0.10 K/ L 0.04-0.54 vvhr=948) BASOPHILS ABSOLUTE COUNT (BEAKER) (test pmig=991) 0.01 K/ L 0.01-0.08 IMMATURE GRANULOCYTES-RELATIVE PERCENT (BEAKER) 1 % 0-1 (test cmui=6789) TISSUE [id number] 14:55:00Surgical Pathology Report Case: [id number] Authorizing Provider: Karina Rain MD Collected: 05/08/20181999 Ordering Location: [address] Received: 05/11/2018 0837 Service Pathologist: Jesús Craig MD Specimen: Bone L3 VERTEBRAL BODYBONE BIOPSY:BONE AND BONE MARROW, NEGATIVE FOR MALIGNANCY.SEE DIAGNOSTIC COMMENT. Signing Pathologist Direct Phone Line: [phone] signed by Jesús Craig MD on 05/12/2018 [...] as thesampled material may not be fully passenger service representative. This case was discussed with Dr. Andrea Mason, testing machine operator.[id number], [id number], 11108, [id number] fracture of body thoracic vertebralL3 vertebral body [...] developed and its performance characteristics determined by [facility], Pathology Laboratory. It has not been [...] clinical laboratory testing.RAD, CHEST, 1 VIEW, NON [id number] 13:56:00Reason for exam:->edemaShould this be performed at the bedside?->YesFINAL REPORT Chest one view compared to December 30 Discussion: Ill-defined bilateral airspace opacities are worse since the previous study although this may reflect a lesser inspiratory effort. No gross effusion or pneumothorax. Signed: Karina Pugh Verified Date/Time : 05/12/2018 13:56:44 Reading Location: [address] Consult Reading Room CALCIUM [id number] 06:58:00 Test Item Value Reference Range Comments CALCIUM IONIZED (BEAKER) (test doth=332) 1.11 mmol/L 1.12-1.27 PH, BLOOD (BEAKER) (test uunj=3548) 7.36 [id number] 06:31:00 Test Item Value Reference Range Comments PHOSPHORUS (BEAKER) (test fixc=965) 2.9 mg/dL 2.3-4.7 [id number] 06:31:00 Test Item Value Reference Range Comments MAGNESIUM (BEAKER) (test hpgd=653) 1.9 mg/dL 1.6-2.6 COMPREHENSIVE METABOLIC [id number] 06:31:00 Test Item Value Reference Range Comments TOTAL PROTEIN (BEAKER) 5.8 gm/dL 6.0-8.3 (test wiev=673) ALBUMIN (BEAKER) (test 4.0 g/dL 3.5-5.0 wuuj=9685) ALKALINE PHOSPHATASE 124 U/L 40-150 (BEAKER) (test ecxe=344) BILIRUBIN TOTAL (BEAKER) 4.3 mg/dL 0.2-1.2 (test bpun=599) SODIUM (BEAKER) (test 128 meq/L 136-145 vnls=194) POTASSIUM (BEAKER) (test 3.9 meq/L 3.5-5.1 lknn=407) CHLORIDE (BEAKER) (test 92 meq/L 98-107 xbop=399) CO2 (BEAKER) (test 26 meq/L 22-29 rrka=393) BLOOD UREA NITROGEN 21 mg/dL 7-21 (BEAKER) (test ebdb=209) CREATININE (BEAKER) (test 1.54 mg/dL 0.57-1.25 clde=999) GLUCOSE RANDOM (BEAKER) 113 mg/dL 70-105 (test csjs=182) CALCIUM (BEAKER) (test 9.5 mg/dL 8.4-10.2 bsxq=869) AST (SGOT) (BEAKER) (test 16 U/L 5-34 xmqj=300) ALT (SGPT) (BEAKER) (test 6 U/L 6-55 nlst=227) EGFR (BEAKER) (test 48 mL/min/1.73 sq m ESTIMATED GFR IS NOT jqbo=9116) ACCURATE CREATININE CLEARANCE IN PREDICTING GLOMERULAR FILTRATION RATE. ESTIMATED GFR IS NOT APPLICABLE FOR DIALYSIS PATIENTS. Specimen slightly ictericHEPATIC FUNCTION [id number] 06:31:00 Test Item Value Reference Range Comments TOTAL PROTEIN (BEAKER) (test qnjv=665) 5.8 gm/dL 6.0-8.3 ALBUMIN (BEAKER) (test bpyg=2970) 4.0 g/dL 3.5-5.0 BILIRUBIN TOTAL (BEAKER) (test qrfz=659) 4.3 mg/dL 0.2-1.2 BILIRUBIN DIRECT (BEAKER) (test ngac=420) 2.3 mg/dL 0.1-0.5 ALKALINE PHOSPHATASE (BEAKER) (test pmiz=360) 124 U/L 40-150 AST (SGOT) (BEAKER) (test wthu=180) 16 U/L 5-34 ALT (SGPT) (BEAKER) (test csim=882) 6 U/L 6-55 Specimen slightly ictericPROTHROMBIN [id number] 06:16:00 Test Item Value Reference Range Comments PROTIME (BEAKER) (test oozu=416) 22.3 seconds 11.7-14.7 INR (BEAKER) (test fdfv=647) 2.0 <=5.9 RECOMMENDED COUMADIN/WARFARIN INR THERAPY RANGESSTANDARD DOSE: 2.0 - 3.0 Includes: PROPHYLAXIS forvenous thrombosis, systemic embolization; TREATMENT for venous thrombosis and/or pulmonary embolus.HIGH RISK: Target INR is 2.5-3.5 for patients with mechanical heart valves.CBC W/PLT COUNT & AUTO [id number] 06:00:00 Test Item Value Reference Range Comments WHITE BLOOD CELL COUNT (BEAKER) (test cjom=768) 4.3 K/ L 3.5-10.5 RED BLOOD CELL COUNT (BEAKER) (test uyru=087) 2.68 M/ L 4.63-6.08 HEMOGLOBIN (BEAKER) (test jlce=486) 8.3 GM/DL 13.7-17.5 HEMATOCRIT (BEAKER) (test pwtt=520) 25.0 % 40.1-51.0 MEAN CORPUSCULAR VOLUME (BEAKER) (test lzzp=474) 93.3 fL 79.0-92.2 MEAN CORPUSCULAR HEMOGLOBIN (BEAKER) (test 31.0 pg 25.7-32.2 wztf=315) MEAN CORPUSCULAR HEMOGLOBIN CONC (BEAKER) (test 33.2 GM/DL 32.3-36.5 stxo=577) RED CELL DISTRIBUTION WIDTH (BEAKER) (test 17.4 % 11.6-14.4 tueh=223) PLATELET COUNT (BEAKER) (test crlz=325) 57 K/CU MM 150-450 MEAN PLATELET VOLUME (BEAKER) (test eljd=154) 9.3 fL 9.4-12.4 NUCLEATED RED BLOOD CELLS (BEAKER) (test 0 /100 WBC 0-0 vhnq=612) NEUTROPHILS RELATIVE PERCENT (BEAKER) (test 61 % qzcm=659) LYMPHOCYTES RELATIVE PERCENT (BEAKER) (test 14 % pucj=577) MONOCYTES RELATIVE PERCENT (BEAKER) (test 17 % jwwn=992) EOSINOPHILS RELATIVE PERCENT (BEAKER) (test 7 % oguy=906) BASOPHILS RELATIVE PERCENT (BEAKER) (test 1 % amqt=487) NEUTROPHILS ABSOLUTE COUNT (BEAKER) (test 2.62 K/ L 1.78-5.38 khji=564) LYMPHOCYTES ABSOLUTE COUNT (BEAKER) (test 0.59 K/ L 1.32-3.57 tcjp=670) MONOCYTES ABSOLUTE COUNT (BEAKER) (test ghpd=982) 0.73 K/ L 0.30-0.82 EOSINOPHILS ABSOLUTE COUNT (BEAKER) (test 0.29 K/ L 0.04-0.54 bkzs=125) BASOPHILS ABSOLUTE COUNT (BEAKER) (test uuhe=636) 0.02 K/ L 0.01-0.08 IMMATURE GRANULOCYTES-RELATIVE PERCENT (BEAKER) 1 % 0-1 (test fsoa=6390) BLOOD [id number] 00:00:00 Test Item Value Reference Range Comments CULTURE (BEAKER) (test bhjb=2540) No growth in 5 days BLOOD [id number] 00:00:00 Test Item Value Reference Range Comments CULTURE (BEAKER) (test wqrc=1564) No growth in 5 days OSMOLALITY, [id number] 18:16:00 Test Item Value Reference Range Comments OSMOLALITY URINE (BEAKER) (test kyzk=413) 312 mOsm/kg 40-1400 BODY FLUID CELL COUNT WITH [id number] 17:17:00 Test Item Value Reference Range Comments APPEARANCE FLUID (BEAKER) (test yqyv=649) Clear Clear COLOR FLUID (BEAKER) (test tneu=264) Yellow Colorless, Straw RBC FLUID (BEAKER) (test sqxy=545) 150 /cu mm <=1 ADJUSTED WBC FLUID (BEAKER) (test qpar=5910) 72 /cu mm <=5 LINING CELLS (BEAKER) (test lxas=3980) 2 /cu mm <=1 NEUTROPHILS FLUID (BEAKER) (test ftcz=7866) 3 % LYMPHS FLUID (BEAKER) (test ifzu=705) 28 % MONO/MACROPHAGE FLUID (BEAKER) (test xrcx=011) 68 % EOSINOPHILS FLUID (BEAKER) (test njoz=454) 1 % BASO FLUID (BEAKER) (test kaud=346) 0 % CONTAINER BODY FLUID (BEAKER) (test bfoc=5999) EDTA Tube SODIUM, RANDOM [id number] 17:09:00 Test Item Value Reference Range Comments SODIUM URINE (BEAKER) (test ohrm=666) < meq/L Reference Range: No NormalsURINALYSIS W/ [id number] 17:08:00 Test Item Value Reference Range Comments COLOR (BEAKER) (test bhit=620) Yellow CLARITY (BEAKER) (test qmyr=389) Clear SPECIFIC GRAVITY UA (BEAKER) (test omox=110) 1.012 1.001-1.035 PH UA (BEAKER) (test wjnl=097) 5.5 5.0-8.0 PROTEIN UA (BEAKER) (test yddr=678) Negative Negative GLUCOSE UA (BEAKER) (test vlmv=222) Negative Negative KETONES UA (BEAKER) (test fgue=068) Negative Negative BILIRUBIN UA (BEAKER) (test ildl=723) Negative Negative BLOOD UA (BEAKER) (test chhy=601) Negative Negative NITRITE UA (BEAKER) (test ntvb=744) Negative Negative LEUKOCYTE ESTERASE UA (BEAKER) (test txbb=525) Negative Negative UROBILINOGEN UA (BEAKER) (test ucca=296) 2.0 mg/dL 0.2-1.0 RBC UA (BEAKER) (test ssbf=718) 0 /HPF WBC UA (BEAKER) (test bdqy=835) 1 /HPF MUCUS (BEAKER) (test jegx=0068) Rare HYALINE CASTS (BEAKER) (test lrng=605) 15 /LPF SOURCE(BEAKER) (test kaur=5474) CREATININE, RANDOM [id number] 17:05:00 Test Item Value Reference Range Comments CREATININE URINE (BEAKER) (test idks=861) 116.1 mg/dL Reference Range: No NormalsPROTEIN, RANDOM [id number] 17:05:00 Test Item Value Reference Range Comments PROTEIN, URINE (BEAKER) (test hhgh=8757) 7 mg/dL 0-14 RAD, SPINE, THORACIC, 2 [id number] 13:53:00Reason for exam:->back pain, s/p kyphoplastyFINAL REPORT [...] disc space is relatively maintained. Signed: Aristeo XiongYasound Verified Date/Time: 13:53:06 Reading Location: [facility] Reading Room RAD, SPINE, LUMBAR, 2 OR 3 [id number] 13:53:00Reason for exam:->back pain, s/p kyphoplastyFINAL REPORT [...] space is relatively maintained. Signed: Aristeo Xiong RogatestanYasound Verified Date/Time: 13:53:06 Reading Location: [facility] Mammo Reading Room U/S, [id number] 12:52:00Limit to 4L due to AKIReason for exam:-> ascitesShould this be performed at the bedside?->NoFINAL REPORT Ultrasound guided paracentesis, 05/11/2018. Clinical History: Ascites. Sedation: None. Senior Engineering Manager: Elle. Armature Winder Repair Helper: None. Estimated Blood Loss: < 1 cc. [...] was achieved with 1% lidocaine, a 5 [place] one-step catheter was advanced into the peritoneal cavity under ultrasound guidance. After completion of drainage, the catheter was removed. There was no evidence of complication. Patient Disposition: The patient was discharged from the ultrasound department after the paracentesis, in good condition. Impression: Successful ultrasound guided paracentesis. Signed: Perlita AlmeidaReport Verified Date/Time: 05/11/2018 12:52:57 Reading Location: [address] Ultrasound Reading Room MISCELLANEOUS LAB [id number] 10:45:00 Test Item Value Reference Range Comments SCAN RESULT (test ybzi=[id number]) [id number] 07:31:00 Test Item Value Reference Range Comments PHOSPHORUS (BEAKER) (test topw=796) 2.7 mg/dL 2.3-4.7 [id number] 07:31:00 Test Item Value Reference Range Comments MAGNESIUM (BEAKER) (test hbff=342) 1.8 mg/dL 1.6-2.6 COMPREHENSIVE METABOLIC [id number] 07:31:00 Test Item Value Reference Range Comments TOTAL PROTEIN (BEAKER) 5.5 gm/dL 6.0-8.3 (test iwxj=968) ALBUMIN (BEAKER) (test 3.5 g/dL 3.5-5.0 dxzc=8230) ALKALINE PHOSPHATASE 118 U/L 40-150 (BEAKER) (test jyca=327) BILIRUBIN TOTAL (BEAKER) 5.1 mg/dL 0.2-1.2 (test kbyv=965) SODIUM (BEAKER) (test 123 meq/L 136-145 vpxf=614) POTASSIUM (BEAKER) (test 4.1 meq/L 3.5-5.1 zbhv=958) CHLORIDE (BEAKER) (test 91 meq/L 98-107 tcdf=643) CO2 (BEAKER) (test 25 meq/L 22-29 eyln=871) BLOOD UREA NITROGEN 21 mg/dL 7-21 (BEAKER) (test logj=725) CREATININE (BEAKER) (test 1.59 mg/dL 0.57-1.25 smqa=551) GLUCOSE RANDOM (BEAKER) 121 mg/dL 70-105 (test oyai=684) CALCIUM (BEAKER) (test 9.4 mg/dL 8.4-10.2 hqql=705) AST (SGOT) (BEAKER) (test 17 U/L 5-34 skyq=193) ALT (SGPT) (BEAKER) (test 8 U/L 6-55 tfzs=446) EGFR (BEAKER) (test 46 mL/min/1.73 sq m ESTIMATED GFR IS NOT tjra=6949) ACCURATE CREATININE CLEARANCE IN PREDICTING GLOMERULAR FILTRATION RATE. ESTIMATED GFR IS NOT APPLICABLE FOR DIALYSIS PATIENTS. Specimen moderately ictericHEPATIC FUNCTION [id number] 07:31:00 Test Item Value Reference Range Comments TOTAL PROTEIN (BEAKER) (test xpfb=829) 5.5 gm/dL 6.0-8.3 ALBUMIN (BEAKER) (test yjqw=7197) 3.5 g/dL 3.5-5.0 BILIRUBIN TOTAL (BEAKER) (test zomk=078) 5.1 mg/dL 0.2-1.2 BILIRUBIN DIRECT (BEAKER) (test xpjc=138) 2.3 mg/dL 0.1-0.5 ALKALINE PHOSPHATASE (BEAKER) (test nejd=941) 118 U/L 40-150 AST (SGOT) (BEAKER) (test avcm=839) 17 U/L 5-34 ALT (SGPT) (BEAKER) (test dbdu=432) 8 U/L 6-55 Specimen moderately ictericPROTHROMBIN [id number] 07:17:00 Test Item Value Reference Range Comments PROTIME (BEAKER) (test biof=021) 23.8 seconds 11.7-14.7 INR (BEAKER) (test xqxw=866) 2.1 <=5.9 RECOMMENDED COUMADIN/WARFARIN INR THERAPY RANGESSTANDARD DOSE: 2.0 - 3.0 Includes: PROPHYLAXIS forvenous thrombosis, systemic embolization; TREATMENT for venous thrombosis and/or pulmonary embolus.HIGH RISK: Target INR is 2.5-3.5 for patients with mechanical heart valves.CBC W/PLT COUNT & AUTO [id number] 07:15:00 Test Item Value Reference Range Comments WHITE BLOOD CELL COUNT (BEAKER) (test hwto=253) 4.4 K/ L 3.5-10.5 RED BLOOD CELL COUNT (BEAKER) (test wxgl=249) 2.52 M/ L 4.63-6.08 HEMOGLOBIN (BEAKER) (test yadw=299) 7.9 GM/DL 13.7-17.5 HEMATOCRIT (BEAKER) (test aaep=159) 23.7 % 40.1-51.0 MEAN CORPUSCULAR VOLUME (BEAKER) (test xmdb=780) 94.0 fL 79.0-92.2 MEAN CORPUSCULAR HEMOGLOBIN (BEAKER) (test 31.3 pg 25.7-32.2 qeft=766) MEAN CORPUSCULAR HEMOGLOBIN CONC (BEAKER) (test 33.3 GM/DL 32.3-36.5 qali=009) RED CELL DISTRIBUTION WIDTH (BEAKER) (test 17.6 % 11.6-14.4 ikod=676) PLATELET COUNT (BEAKER) (test xawv=620) 52 K/CU MM 150-450 MEAN PLATELET VOLUME (BEAKER) (test vlig=812) 9.2 fL 9.4-12.4 NUCLEATED RED BLOOD CELLS (BEAKER) (test 0 /100 WBC 0-0 xvlm=966) NEUTROPHILS RELATIVE PERCENT (BEAKER) (test 62 % zyav=760) LYMPHOCYTES RELATIVE PERCENT (BEAKER) (test 10 % lgbn=261) MONOCYTES RELATIVE PERCENT (BEAKER) (test 19 % iyck=304) EOSINOPHILS RELATIVE PERCENT (BEAKER) (test 8 % vbrh=581) BASOPHILS RELATIVE PERCENT (BEAKER) (test 0 % hyso=978) NEUTROPHILS ABSOLUTE COUNT (BEAKER) (test 2.72 K/ L 1.78-5.38 nrmb=381) LYMPHOCYTES ABSOLUTE COUNT (BEAKER) (test 0.42 K/ L 1.32-3.57 ovpl=846) MONOCYTES ABSOLUTE COUNT (BEAKER) (test jbxl=682) 0.84 K/ L 0.30-0.82 EOSINOPHILS ABSOLUTE COUNT (BEAKER) (test 0.34 K/ L 0.04-0.54 ldcg=077) BASOPHILS ABSOLUTE COUNT (BEAKER) (test xuhq=078) 0.00 K/ L 0.01-0.08 IMMATURE GRANULOCYTES-RELATIVE PERCENT (BEAKER) 1 % 0-1 (test lwrl=0688) CALCIUM, [id number] 07:09:00 Test Item Value Reference Range Comments CALCIUM IONIZED (BEAKER) (test jbym=936) 1.09 mmol/L 1.12-1.27 PH, BLOOD (BEAKER) (test bczz=3767) 7.36 BASIC METABOLIC [id number] 17:49:00 Test Item Value Reference Range Comments SODIUM (BEAKER) (test 124 meq/L 136-145 ielu=927) POTASSIUM (BEAKER) (test 3.8 meq/L 3.5-5.1 dxoj=386) CHLORIDE (BEAKER) (test 91 meq/L 98-107 yomy=087) CO2 (BEAKER) (test 22 meq/L 22-29 jnqy=785) BLOOD UREA NITROGEN 19 mg/dL 7-21 (BEAKER) (test ahvx=106) CREATININE (BEAKER) (test 1.49 mg/dL 0.57-1.25 zysi=803) GLUCOSE RANDOM (BEAKER) 105 mg/dL 70-105 (test yutv=306) CALCIUM (BEAKER) (test 9.3 mg/dL 8.4-10.2 yuop=715) EGFR (BEAKER) (test 50 mL/min/1.73 sq m ESTIMATED GFR IS NOT xtfj=7149) ACCURATE CREATININE CLEARANCE IN PREDICTING GLOMERULAR FILTRATION RATE. ESTIMATED GFR IS NOT APPLICABLE FOR DIALYSIS PATIENTS. Call [id number] slightly ictericCALCIUM, [id number] 06:59:00 Test Item Value Reference Range Comments CALCIUM IONIZED (BEAKER) (test qxrk=339) 1.00 mmol/L 1.12-1.27 PH, BLOOD (BEAKER) (test kuns=0864) 7.47 [id number] 05:42:00 Test Item Value Reference Range Comments PHOSPHORUS (BEAKER) (test qppu=254) 2.7 mg/dL 2.3-4.7 [id number] 05:42:00 Test Item Value Reference Range Comments MAGNESIUM (BEAKER) (test smzd=951) 1.7 mg/dL 1.6-2.6 HEPATIC FUNCTION [id number] 05:42:00 Test Item Value Reference Range Comments TOTAL PROTEIN (BEAKER) (test oqlc=193) 5.2 gm/dL 6.0-8.3 ALBUMIN (BEAKER) (test jjgq=9948) 3.5 g/dL 3.5-5.0 BILIRUBIN TOTAL (BEAKER) (test yxkz=541) 3.4 mg/dL 0.2-1.2 BILIRUBIN DIRECT (BEAKER) (test daop=151) 1.8 mg/dL 0.1-0.5 ALKALINE PHOSPHATASE (BEAKER) (test rwab=721) 106 U/L 40-150 AST (SGOT) (BEAKER) (test fcmv=482) 15 U/L 5-34 ALT (SGPT) (BEAKER) (test glwh=112) 7 U/L 6-55 Specimen slightly ictericPROTHROMBIN [id number] 05:22:00 Test Item Value Reference Range Comments PROTIME (BEAKER) (test ghyl=566) 22.6 seconds 11.7-14.7 INR (BEAKER) (test kmvl=844) 2.0 <=5.9 RECOMMENDED COUMADIN/WARFARIN INR THERAPY RANGESSTANDARD DOSE: 2.0 - 3.0 Includes: PROPHYLAXIS forvenous thrombosis, systemic embolization; TREATMENT for venous thrombosis and/or pulmonary embolus.HIGH RISK: Target INR is 2.5-3.5 for patients with mechanical heart valves.CBC W/PLT COUNT & AUTO [id number] 05:10:00 Test Item Value Reference Range Comments WHITE BLOOD CELL COUNT (BEAKER) (test euvz=983) 5.6 K/ L 3.5-10.5 RED BLOOD CELL COUNT (BEAKER) (test oyza=065) 2.09 M/ L 4.63-6.08 HEMOGLOBIN (BEAKER) (test eani=326) 6.5 GM/DL 13.7-17.5 HEMATOCRIT (BEAKER) (test munj=506) 19.8 % 40.1-51.0 MEAN CORPUSCULAR VOLUME (BEAKER) (test sjsa=457) 94.7 fL 79.0-92.2 MEAN CORPUSCULAR HEMOGLOBIN (BEAKER) (test 31.1 pg 25.7-32.2 bnpi=203) MEAN CORPUSCULAR HEMOGLOBIN CONC (BEAKER) (test 32.8 GM/DL 32.3-36.5 evvc=754) RED CELL DISTRIBUTION WIDTH (BEAKER) (test 17.3 % 11.6-14.4 vlzs=565) PLATELET COUNT (BEAKER) (test mzvx=289) 57 K/CU MM 150-450 MEAN PLATELET VOLUME (BEAKER) (test qkmv=864) 8.9 fL 9.4-12.4 NUCLEATED RED BLOOD CELLS (BEAKER) (test 0 /100 WBC 0-0 jqdx=487) NEUTROPHILS RELATIVE PERCENT (BEAKER) (test 71 % yhde=370) LYMPHOCYTES RELATIVE PERCENT (BEAKER) (test 9 % zvrh=979) MONOCYTES RELATIVE PERCENT (BEAKER) (test 16 % lxem=063) EOSINOPHILS RELATIVE PERCENT (BEAKER) (test 3 % olyw=500) BASOPHILS RELATIVE PERCENT (BEAKER) (test 0 % whqf=078) NEUTROPHILS ABSOLUTE COUNT (BEAKER) (test 3.93 K/ L 1.78-5.38 sqkw=813) LYMPHOCYTES ABSOLUTE COUNT (BEAKER) (test 0.52 K/ L 1.32-3.57 cbsw=178) MONOCYTES ABSOLUTE COUNT (BEAKER) (test alpe=957) 0.87 K/ L 0.30-0.82 EOSINOPHILS ABSOLUTE COUNT (BEAKER) (test 0.19 K/ L 0.04-0.54 qcpx=703) BASOPHILS ABSOLUTE COUNT (BEAKER) (test igpp=348) 0.01 K/ L 0.01-0.08 IMMATURE GRANULOCYTES-RELATIVE PERCENT (BEAKER) 1 % 0-1 (test bpqv=5784) HEPATIC FUNCTION [id number] 11:05:00 Test Item Value Reference Range Comments TOTAL PROTEIN (BEAKER) (test amcg=719) 5.7 gm/dL 6.0-8.3 ALBUMIN (BEAKER) (test tidu=0132) 3.9 g/dL 3.5-5.0 BILIRUBIN TOTAL (BEAKER) (test hqnu=575) 4.9 mg/dL 0.2-1.2 BILIRUBIN DIRECT (BEAKER) (test ihht=418) 2.0 mg/dL 0.1-0.5 ALKALINE PHOSPHATASE (BEAKER) (test hsii=582) 98 U/L 40-150 AST (SGOT) (BEAKER) (test wgmb=580) 19 U/L 5-34 ALT (SGPT) (BEAKER) (test lpoz=899) 8 U/L 6-55 Specimen moderately ictericBASIC METABOLIC [id number] 10:06:00 Test Item Value Reference Range Comments SODIUM (BEAKER) (test 132 meq/L 136-145 jvua=403) POTASSIUM (BEAKER) (test 5.0 meq/L 3.5-5.1 diqf=340) CHLORIDE (BEAKER) (test 97 meq/L 98-107 fsch=904) CO2 (BEAKER) (test 25 meq/L 22-29 smtk=480) BLOOD UREA NITROGEN 17 mg/dL 7-21 (BEAKER) (test uzex=579) CREATININE (BEAKER) (test 1.33 mg/dL 0.57-1.25 hifg=041) GLUCOSE RANDOM (BEAKER) 181 mg/dL 70-105 (test umxy=419) CALCIUM (BEAKER) (test 9.4 mg/dL 8.4-10.2 gmaw=858) EGFR (BEAKER) (test 56 mL/min/1.73 sq m ESTIMATED GFR IS NOT mifa=7746) ACCURATE CREATININE CLEARANCE IN PREDICTING GLOMERULAR FILTRATION RATE. ESTIMATED GFR IS NOT APPLICABLE FOR DIALYSIS PATIENTS. Specimen moderately ictericCBC W/PLT COUNT & AUTO [id number] 07: 45:00 Test Item Value Reference Range Comments WHITE BLOOD CELL COUNT (BEAKER) (test zyxq=895) 3.4 K/ L 3.5-10.5 RED BLOOD CELL COUNT (BEAKER) (test cgve=638) 2.26 M/ L 4.63-6.08 HEMOGLOBIN (BEAKER) (test yyhk=705) 7.0 GM/DL 13.7-17.5 HEMATOCRIT (BEAKER) (test fnjk=160) 21.6 % 40.1-51.0 MEAN CORPUSCULAR VOLUME (BEAKER) (test micb=619) 95.6 fL 79.0-92.2 MEAN CORPUSCULAR HEMOGLOBIN (BEAKER) (test 31.0 pg 25.7-32.2 cdzl=325) MEAN CORPUSCULAR HEMOGLOBIN CONC (BEAKER) (test 32.4 GM/DL 32.3-36.5 yedt=777) RED CELL DISTRIBUTION WIDTH (BEAKER) (test 17.3 % 11.6-14.4 ffnp=236) PLATELET COUNT (BEAKER) (test bwdb=664) 66 K/CU MM 150-450 MEAN PLATELET VOLUME (BEAKER) (test bjab=939) 9.8 fL 9.4-12.4 NUCLEATED RED BLOOD CELLS (BEAKER) (test 0 /100 WBC 0-0 besm=560) NEUTROPHILS RELATIVE PERCENT (BEAKER) (test 87 % hxdb=440) LYMPHOCYTES RELATIVE PERCENT (BEAKER) (test 7 % ierb=629) MONOCYTES RELATIVE PERCENT (BEAKER) (test 5 % leuf=364) EOSINOPHILS RELATIVE PERCENT (BEAKER) (test 0 % fmed=689) BASOPHILS RELATIVE PERCENT (BEAKER) (test 0 % fcdv=225) NEUTROPHILS ABSOLUTE COUNT (BEAKER) (test 2.94 K/ L 1.78-5.38 jefx=923) LYMPHOCYTES ABSOLUTE COUNT (BEAKER) (test 0.23 K/ L 1.32-3.57 inhf=855) MONOCYTES ABSOLUTE COUNT (BEAKER) (test niix=421) 0.17 K/ L 0.30-0.82 EOSINOPHILS ABSOLUTE COUNT (BEAKER) (test 0.00 K/ L 0.04-0.54 mfuu=941) BASOPHILS ABSOLUTE COUNT (BEAKER) (test mvyl=826) 0.00 K/ L 0.01-0.08 IMMATURE GRANULOCYTES-RELATIVE PERCENT (BEAKER) 1 % 0-1 (test idyf=4227) PROTHROMBIN [id number] 06:06:00 Test Item Value Reference Range Comments PROTIME (BEAKER) (test wivr=759) 19.1 seconds 11.7-14.7 INR (BEAKER) (test imbu=589) 1.6 <=5.9 RECOMMENDED COUMADIN/WARFARIN INR THERAPY RANGESSTANDARD DOSE: 2.0 - 3.0 Includes: PROPHYLAXIS forvenous thrombosis, systemic embolization; TREATMENT for venous thrombosis and/or pulmonary embolus.HIGH RISK: Target INR is 2.5-3.5 for patients with mechanical heart valves.[id number] 15:35:00 Test Item Value Reference Range Comments PROTIME (BEAKER) (test gsxe=923) 20.3 seconds 11.7-14.7 INR (BEAKER) (test tfsp=815) 1.7 <=5.9 PARTIAL THROMBOPLASTIN TIME (BEAKER) (test 46.2 seconds 22.5-36.0 gpkk=728) RECOMMENDED COUMADIN/WARFARIN INR THERAPY RANGESSTANDARD DOSE: 2.0 - 3.0 Includes: PROPHYLAXIS forvenous thrombosis, systemic embolization; TREATMENT for venous thrombosis and/or pulmonary embolus.HIGH RISK: Target INR is 2.5-3.5 for patients with mechanical heart valves.30 minutes after administration of Apvyzba41 minutes after administration of KcentraPROTHROMBIN [id number] 15:33:00 Test Item Value Reference Range Comments PROTIME (BEAKER) (test ygta=285) 20.1 seconds 11.7-14.7 INR (BEAKER) (test kshi=915) 1.7 <=5.9 RECOMMENDED COUMADIN/WARFARIN INR THERAPY RANGESSTANDARD DOSE: 2.0 - 3.0 Includes: PROPHYLAXIS forvenous thrombosis, systemic embolization; TREATMENT for venous thrombosis and/or pulmonary embolus.HIGH RISK: Target INR is 2.5-3.5 for patients with mechanical heart valves.Please draw 30 mins after Kcentra doseBODY FLUID CULTURE + GRAM [id number] 11:29:00 Test Item Value Reference Range Comments CULTURE (BEAKER) (test unfe=2851) No growth GRAM STAIN RESULT (BEAKER) (test <1+ WBCs rshg=7727) GRAM STAIN RESULT (BEAKER) (test No organisms seen lmrw=66818) CT, [id number] 10:30:00FINAL REPORT HISTORY : r/o intra abdominal [...] MDReport Verified Date/Time: 05/08/2018 10:30:57 Reading Location: [facility] Diagnostic Imaging Reading Room - [place] [id number] CBC W/PLT COUNT & AUTO [id number] 07:27:00 Test Item Value Reference Range Comments WHITE BLOOD CELL COUNT (BEAKER) (test uwbf=327) 3.1 K/ L 3.5-10.5 RED BLOOD CELL COUNT (BEAKER) (test jqvk=427) 2.27 M/ L 4.63-6.08 HEMOGLOBIN (BEAKER) (test lcfn=890) 7.1 GM/DL 13.7-17.5 HEMATOCRIT (BEAKER) (test zjdx=070) 21.4 % 40.1-51.0 MEAN CORPUSCULAR VOLUME (BEAKER) (test hyga=575) 94.3 fL 79.0-92.2 MEAN CORPUSCULAR HEMOGLOBIN (BEAKER) (test 31.3 pg 25.7-32.2 qqwb=620) MEAN CORPUSCULAR HEMOGLOBIN CONC (BEAKER) (test 33.2 GM/DL 32.3-36.5 etnj=451) RED CELL DISTRIBUTION WIDTH (BEAKER) (test 17.5 % 11.6-14.4 dsrj=132) PLATELET COUNT (BEAKER) (test niaw=991) 43 K/CU MM 150-450 MEAN PLATELET VOLUME (BEAKER) (test fsdx=094) 8.7 fL 9.4-12.4 NUCLEATED RED BLOOD CELLS (BEAKER) (test 0 /100 WBC 0-0 xjkk=386) NEUTROPHILS RELATIVE PERCENT (BEAKER) (test 60 % vmda=912) LYMPHOCYTES RELATIVE PERCENT (BEAKER) (test 16 % wywq=461) MONOCYTES RELATIVE PERCENT (BEAKER) (test 17 % tbdt=397) EOSINOPHILS RELATIVE PERCENT (BEAKER) (test 7 % heow=249) BASOPHILS RELATIVE PERCENT (BEAKER) (test 0 % hjad=116) NEUTROPHILS ABSOLUTE COUNT (BEAKER) (test 1.85 K/ L 1.78-5.38 keag=981) LYMPHOCYTES ABSOLUTE COUNT (BEAKER) (test 0.48 K/ L 1.32-3.57 cifi=801) MONOCYTES ABSOLUTE COUNT (BEAKER) (test oxpl=618) 0.54 K/ L 0.30-0.82 EOSINOPHILS ABSOLUTE COUNT (BEAKER) (test 0.22 K/ L 0.04-0.54 ogcg=705) BASOPHILS ABSOLUTE COUNT (BEAKER) (test gjio=199) 0.00 K/ L 0.01-0.08 IMMATURE GRANULOCYTES-RELATIVE PERCENT (BEAKER) 0 % 0-1 (test nurp=5946) CBC W/PLT COUNT & AUTO [id number] 07:26:00 Test Item Value Reference Range Comments WHITE BLOOD CELL COUNT (BEAKER) (test hzdv=394) 2.9 K/ L 3.5-10.5 RED BLOOD CELL COUNT (BEAKER) (test rmbl=338) 2.25 M/ L 4.63-6.08 HEMOGLOBIN (BEAKER) (test vphw=548) 7.1 GM/DL 13.7-17.5 HEMATOCRIT (BEAKER) (test cspm=514) 21.4 % 40.1-51.0 MEAN CORPUSCULAR VOLUME (BEAKER) (test alwx=340) 95.1 fL 79.0-92.2 MEAN CORPUSCULAR HEMOGLOBIN (BEAKER) (test 31.6 pg 25.7-32.2 zyur=413) MEAN CORPUSCULAR HEMOGLOBIN CONC (BEAKER) (test 33.2 GM/DL 32.3-36.5 vrns=713) RED CELL DISTRIBUTION WIDTH (BEAKER) (test 17.5 % 11.6-14.4 last=034) PLATELET COUNT (BEAKER) (test tqtp=599) 44 K/CU MM 150-450 MEAN PLATELET VOLUME (BEAKER) (test qklu=379) 9.3 fL 9.4-12.4 NUCLEATED RED BLOOD CELLS (BEAKER) (test 0 /100 WBC 0-0 nyrf=021) NEUTROPHILS RELATIVE PERCENT (BEAKER) (test 59 % ycoy=405) LYMPHOCYTES RELATIVE PERCENT (BEAKER) (test 16 % spfc=472) MONOCYTES RELATIVE PERCENT (BEAKER) (test 17 % mbtu=278) EOSINOPHILS RELATIVE PERCENT (BEAKER) (test 7 % gzca=822) BASOPHILS RELATIVE PERCENT (BEAKER) (test 0 % kwmu=527) NEUTROPHILS ABSOLUTE COUNT (BEAKER) (test 1.72 K/ L 1.78-5.38 iriy=470) LYMPHOCYTES ABSOLUTE COUNT (BEAKER) (test 0.46 K/ L 1.32-3.57 zbst=712) MONOCYTES ABSOLUTE COUNT (BEAKER) (test fmic=424) 0.51 K/ L 0.30-0.82 EOSINOPHILS ABSOLUTE COUNT (BEAKER) (test 0.21 K/ L 0.04-0.54 fuil=438) BASOPHILS ABSOLUTE COUNT (BEAKER) (test wszz=919) 0.01 K/ L 0.01-0.08 IMMATURE GRANULOCYTES-RELATIVE PERCENT (BEAKER) 1 % 0-1 (test hrsm=3335) BASIC METABOLIC [id number] 07:00:00 Test Item Value Reference Range Comments SODIUM (BEAKER) (test 130 meq/L 136-145 shfp=690) POTASSIUM (BEAKER) (test 3.6 meq/L 3.5-5.1 oucv=249) CHLORIDE (BEAKER) (test 94 meq/L 98-107 dhqh=020) CO2 (BEAKER) (test 27 meq/L 22-29 dskw=493) BLOOD UREA NITROGEN 19 mg/dL 7-21 (BEAKER) (test gcwi=167) CREATININE (BEAKER) (test 1.40 mg/dL 0.57-1.25 kftv=001) GLUCOSE RANDOM (BEAKER) 111 mg/dL 70-105 (test eqhu=894) CALCIUM (BEAKER) (test 9.2 mg/dL 8.4-10.2 qdur=053) EGFR (BEAKER) (test 53 mL/min/1.73 sq m ESTIMATED GFR IS NOT jktn=0037) ACCURATE CREATININE CLEARANCE IN PREDICTING GLOMERULAR FILTRATION RATE. ESTIMATED GFR IS NOT APPLICABLE FOR DIALYSIS PATIENTS. Specimen moderately ictericCOMPREHENSIVE METABOLIC [id number] 07:00:00 Test Item Value Reference Range Comments TOTAL PROTEIN (BEAKER) 5.7 gm/dL 6.0-8.3 (test cesu=600) ALBUMIN (BEAKER) (test 4.0 g/dL 3.5-5.0 fjei=7157) ALKALINE PHOSPHATASE 92 U/L 40-150 (BEAKER) (test rmso=576) BILIRUBIN TOTAL (BEAKER) 4.6 mg/dL 0.2-1.2 (test fkld=795) SODIUM (BEAKER) (test 130 meq/L 136-145 wmaf=829) POTASSIUM (BEAKER) (test 3.6 meq/L 3.5-5.1 eoyq=934) CHLORIDE (BEAKER) (test 94 meq/L 98-107 jvjr=781) CO2 (BEAKER) (test 27 meq/L 22-29 hpce=694) BLOOD UREA NITROGEN 19 mg/dL 7-21 (BEAKER) (test zbfx=568) CREATININE (BEAKER) (test 1.40 mg/dL 0.57-1.25 ahid=004) GLUCOSE RANDOM (BEAKER) 111 mg/dL 70-105 (test ooeq=937) CALCIUM (BEAKER) (test 9.2 mg/dL 8.4-10.2 xrsn=513) AST (SGOT) (BEAKER) (test 16 U/L 5-34 swtp=449) ALT (SGPT) (BEAKER) (test 6 U/L 6-55 hsfh=024) EGFR (BEAKER) (test 53 mL/min/1.73 sq m ESTIMATED GFR IS NOT rutm=5125) ACCURATE CREATININE CLEARANCE IN PREDICTING GLOMERULAR FILTRATION RATE. ESTIMATED GFR IS NOT APPLICABLE FOR DIALYSIS PATIENTS. Specimen moderately ictericHEPATIC FUNCTION [id number] 07:00:00 Test Item Value Reference Range Comments TOTAL PROTEIN (BEAKER) (test iwwm=245) 5.7 gm/dL 6.0-8.3 ALBUMIN (BEAKER) (test edsv=9115) 4.0 g/dL 3.5-5.0 BILIRUBIN TOTAL (BEAKER) (test fwbs=603) 4.6 mg/dL 0.2-1.2 BILIRUBIN DIRECT (BEAKER) (test eicc=942) 1.8 mg/dL 0.1-0.5 ALKALINE PHOSPHATASE (BEAKER) (test efmp=694) 92 U/L 40-150 AST (SGOT) (BEAKER) (test jhal=886) 16 U/L 5-34 ALT (SGPT) (BEAKER) (test phsl=506) 6 U/L 6-55 Specimen moderately [id number] 06:57:00 Test Item Value Reference Range Comments PARTIAL THROMBOPLASTIN TIME (BEAKER) (test 47.9 seconds 22.5-36.0 srbt=793) PROTHROMBIN TIME/[id number] 06:55:00 Test Item Value Reference Range Comments PROTIME (BEAKER) (test pspm=206) 23.7 seconds 11.7-14.7 INR (BEAKER) (test mvdq=910) 2.1 <=5.9 RECOMMENDED COUMADIN/WARFARIN INR THERAPY RANGESSTANDARD DOSE: 2.0 - 3.0 Includes: PROPHYLAXIS forvenous thrombosis, systemic embolization; TREATMENT for venous thrombosis and/or pulmonary embolus.HIGH RISK: Target INR is 2.5-3.5 for patients with mechanical heart valves.MR, SPINE, LUMBAR, WITHOUT [id number] 16:57:00FINAL REPORT MRI lumbar spine without contrast [...] Bain Verified Date/Time: 05/07/2018 16:57:00 Reading Location: [facility] Radiology Reading Room LACTIC ACID, VENOUS, WHOLE [id number] 14:13:00 Test Item Value Reference Range Comments LACTATE BLOOD VENOUS (2) (BEAKER) (test 2.6 mmol/L 0.5-2.2 slgr=1558) Effective 02/28/2016: Units/Reference Range ChangeNew: 0.5-2.2 mmol/L Previous: 5 -20 mg/dLSpecimen slightly ictericHEMOGLOBIN AND [id number] 13:51:00 Test Item Value Reference Range Comments HEMOGLOBIN (BEAKER) (test fcfv=746) 7.1 GM/DL 13.7-17.5 HEMATOCRIT (BEAKER) (test lhqe=255) 21.7 % 40.1-51.0 U/S, RENAL, [id number] 09:48:00Reason for exam:->AKIFINAL REPORT Renal ultrasound Clinical [...] of the kidneys. Ascites. Signed: Reece Haque MDReport Verified Date/Time: 05/07/2018 09:48:55 Reading Location: [address] Ultrasound Reading Room Electronically signed by: REECE HAQUE MD on 09:[id number] 09:04:00 Test Item Value Reference Range Comments MAGNESIUM (BEAKER) (test whoe=174) 2.0 mg/dL 1.6-2.6 COMPREHENSIVE METABOLIC [id number] 09:04:00 Test Item Value Reference Range Comments TOTAL PROTEIN (BEAKER) 5.2 gm/dL 6.0-8.3 (test iuke=404) ALBUMIN (BEAKER) (test 3.5 g/dL 3.5-5.0 myet=4280) ALKALINE PHOSPHATASE 96 U/L 40-150 (BEAKER) (test otvo=373) BILIRUBIN TOTAL (BEAKER) 4.1 mg/dL 0.2-1.2 (test caia=070) SODIUM (BEAKER) (test 129 meq/L 136-145 ghmz=466) POTASSIUM (BEAKER) (test 3.8 meq/L 3.5-5.1 qlzt=603) CHLORIDE (BEAKER) (test 96 meq/L 98-107 xtvl=317) CO2 (BEAKER) (test 25 meq/L 22-29 tpkc=055) BLOOD UREA NITROGEN 22 mg/dL 7-21 (BEAKER) (test difh=160) CREATININE (BEAKER) (test 1.57 mg/dL 0.57-1.25 lcwb=754) GLUCOSE RANDOM (BEAKER) 122 mg/dL 70-105 (test syvl=575) CALCIUM (BEAKER) (test 8.9 mg/dL 8.4-10.2 kpqs=899) AST (SGOT) (BEAKER) (test 15 U/L 5-34 yvss=914) ALT (SGPT) (BEAKER) (test 7 U/L 6-55 eabr=741) EGFR (BEAKER) (test 47 mL/min/1.73 sq m ESTIMATED GFR IS NOT nmkp=8974) ACCURATE CREATININE CLEARANCE IN PREDICTING GLOMERULAR FILTRATION RATE. ESTIMATED GFR IS NOT APPLICABLE FOR DIALYSIS PATIENTS. Specimen moderately ictericHEPATIC FUNCTION [id number] 09:04:00 Test Item Value Reference Range Comments TOTAL PROTEIN (BEAKER) (test duxx=572) 5.2 gm/dL 6.0-8.3 ALBUMIN (BEAKER) (test ncfw=0670) 3.5 g/dL 3.5-5.0 BILIRUBIN TOTAL (BEAKER) (test ffsf=259) 4.1 mg/dL 0.2-1.2 BILIRUBIN DIRECT (BEAKER) (test ruoz=347) 1.8 mg/dL 0.1-0.5 ALKALINE PHOSPHATASE (BEAKER) (test vnca=011) 96 U/L 40-150 AST (SGOT) (BEAKER) (test dbac=705) 15 U/L 5-34 ALT (SGPT) (BEAKER) (test gqmw=955) 7 U/L 6-55 Specimen moderately ictericCBC W/PLT COUNT & AUTO [id number] 08: 26:00 Test Item Value Reference Range Comments WHITE BLOOD CELL COUNT (BEAKER) (test kjdf=972) 2.7 K/ L 3.5-10.5 RED BLOOD CELL COUNT (BEAKER) (test ckao=518) 2.13 M/ L 4.63-6.08 HEMOGLOBIN (BEAKER) (test uyyl=613) 6.8 GM/DL 13.7-17.5 HEMATOCRIT (BEAKER) (test rjcm=072) 19.5 % 40.1-51.0 MEAN CORPUSCULAR VOLUME (BEAKER) (test xuiu=863) 91.5 fL 79.0-92.2 MEAN CORPUSCULAR HEMOGLOBIN (BEAKER) (test 31.9 pg 25.7-32.2 ghok=429) MEAN CORPUSCULAR HEMOGLOBIN CONC (BEAKER) (test 34.9 GM/DL 32.3-36.5 orjt=810) RED CELL DISTRIBUTION WIDTH (BEAKER) (test 17.5 % 11.6-14.4 ivuf=414) PLATELET COUNT (BEAKER) (test iipg=308) 52 K/CU MM 150-450 MEAN PLATELET VOLUME (BEAKER) (test asdd=317) 9.1 fL 9.4-12.4 NUCLEATED RED BLOOD CELLS (BEAKER) (test 0 /100 WBC 0-0 fbpf=728) NEUTROPHILS RELATIVE PERCENT (BEAKER) (test 62 % xvyu=648) LYMPHOCYTES RELATIVE PERCENT (BEAKER) (test 16 % tsir=933) MONOCYTES RELATIVE PERCENT (BEAKER) (test 17 % azke=925) EOSINOPHILS RELATIVE PERCENT (BEAKER) (test 4 % ejny=314) BASOPHILS RELATIVE PERCENT (BEAKER) (test 0 % gfgp=249) NEUTROPHILS ABSOLUTE COUNT (BEAKER) (test 1.66 K/ L 1.78-5.38 dsei=391) LYMPHOCYTES ABSOLUTE COUNT (BEAKER) (test 0.43 K/ L 1.32-3.57 esov=327) MONOCYTES ABSOLUTE COUNT (BEAKER) (test pgir=462) 0.44 K/ L 0.30-0.82 EOSINOPHILS ABSOLUTE COUNT (BEAKER) (test 0.11 K/ L 0.04-0.54 laey=233) BASOPHILS ABSOLUTE COUNT (BEAKER) (test xxoa=226) 0.00 K/ L 0.01-0.08 IMMATURE GRANULOCYTES-RELATIVE PERCENT (BEAKER) 1 % 0-1 (test ztlx=4053) PROTHROMBIN TIME/[id number] 08:08:00 Test Item Value Reference Range Comments PROTIME (BEAKER) (test xtkm=938) 28.3 seconds 11.7-14.7 INR (BEAKER) (test qjpj=274) 2.7 <=5.9 RECOMMENDED COUMADIN/WARFARIN INR THERAPY RANGESSTANDARD DOSE: 2.0 - 3.0 Includes: PROPHYLAXIS forvenous thrombosis, systemic embolization; TREATMENT for venous thrombosis and/or pulmonary embolus.HIGH RISK: Target INR is 2.5-3.5 for patients with mechanical heart valves.[id number] 19:47:00 Test Item Value Reference Range Comments SODIUM (BEAKER) (test fzpa=181) 129 meq/L 136-145 POTASSIUM (BEAKER) (test lyma=134) 4.6 meq/L 3.5-5.1 CHLORIDE (BEAKER) (test ltel=252) 96 meq/L 98-107 CO2 (BEAKER) (test ozsf=813) 22 meq/L 22-29 Call [id number] AND [id number] 19:27:00 Test Item Value Reference Range Comments HEMOGLOBIN (BEAKER) (test valo=316) 7.1 GM/DL 13.7-17.5 HEMATOCRIT (BEAKER) (test vnio=112) 21.4 % 40.1-51.0 Draw after transfusion of 1u RBC, notify hospitalist if Hgb remains less than 7.0HEMOGLOBIN AND [id number] 11:52:00 Test Item Value Reference Range Comments HEMOGLOBIN (BEAKER) (test grxi=160) 6.3 GM/DL 13.7-17.5 HEMATOCRIT (BEAKER) (test mibd=912) 18.9 % 40.1-51.0 Notify Hepatology if Hgb< 7.0YUNIOR Sandoval PA-CPager#: .BASIC METABOLIC [id number] 05:55:00 Test Item Value Reference Range Comments SODIUM (BEAKER) (test 129 meq/L 136-145 gich=837) POTASSIUM (BEAKER) (test 5.2 meq/L 3.5-5.1 haha=001) CHLORIDE (BEAKER) (test 97 meq/L 98-107 joxm=261) CO2 (BEAKER) (test 22 meq/L 22-29 heyt=581) BLOOD UREA NITROGEN 28 mg/dL 7-21 (BEAKER) (test aiiz=707) CREATININE (BEAKER) (test 1.95 mg/dL 0.57-1.25 kpdl=773) GLUCOSE RANDOM (BEAKER) 102 mg/dL 70-105 (test zked=253) CALCIUM (BEAKER) (test 9.4 mg/dL 8.4-10.2 gtog=225) EGFR (BEAKER) (test 36 mL/min/1.73 sq m ESTIMATED GFR IS NOT dfqm=0343) ACCURATE CREATININE CLEARANCE IN PREDICTING GLOMERULAR FILTRATION RATE. ESTIMATED GFR IS NOT APPLICABLE FOR DIALYSIS PATIENTS. Specimen slightly ictericHEPATIC FUNCTION [id number] 05:55:00 Test Item Value Reference Range Comments TOTAL PROTEIN (BEAKER) (test rkua=255) 5.6 gm/dL 6.0-8.3 ALBUMIN (BEAKER) (test isbf=1465) 3.4 g/dL 3.5-5.0 BILIRUBIN TOTAL (BEAKER) (test ajuv=760) 3.7 mg/dL 0.2-1.2 BILIRUBIN DIRECT (BEAKER) (test kzct=451) 2.5 mg/dL 0.1-0.5 ALKALINE PHOSPHATASE (BEAKER) (test hmuw=929) 108 U/L 40-150 AST (SGOT) (BEAKER) (test pyoi=236) 17 U/L 5-34 ALT (SGPT) (BEAKER) (test dmdk=134) 7 U/L 6-55 Specimen slightly ictericCBC W/PLT COUNT & AUTO [id number] 05:42 :00 Test Item Value Reference Range Comments WHITE BLOOD CELL COUNT (BEAKER) (test loyb=793) 3.7 K/ L 3.5-10.5 RED BLOOD CELL COUNT (BEAKER) (test nlph=137) 2.10 M/ L 4.63-6.08 HEMOGLOBIN (BEAKER) (test epbc=586) 6.5 GM/DL 13.7-17.5 HEMATOCRIT (BEAKER) (test nmba=958) 19.8 % 40.1-51.0 MEAN CORPUSCULAR VOLUME (BEAKER) (test krjq=233) 94.3 fL 79.0-92.2 MEAN CORPUSCULAR HEMOGLOBIN (BEAKER) (test 31.0 pg 25.7-32.2 eval=955) MEAN CORPUSCULAR HEMOGLOBIN CONC (BEAKER) (test 32.8 GM/DL 32.3-36.5 pvlh=911) RED CELL DISTRIBUTION WIDTH (BEAKER) (test 16.4 % 11.6-14.4 wsdi=891) PLATELET COUNT (BEAKER) (test gmnq=233) 54 K/CU MM 150-450 MEAN PLATELET VOLUME (BEAKER) (test ndvy=165) 9.8 fL 9.4-12.4 NUCLEATED RED BLOOD CELLS (BEAKER) (test 0 /100 WBC 0-0 bajm=842) NEUTROPHILS RELATIVE PERCENT (BEAKER) (test 62 % lreb=334) LYMPHOCYTES RELATIVE PERCENT (BEAKER) (test 15 % zoec=855) MONOCYTES RELATIVE PERCENT (BEAKER) (test 18 % eodz=517) EOSINOPHILS RELATIVE PERCENT (BEAKER) (test 3 % aroh=538) BASOPHILS RELATIVE PERCENT (BEAKER) (test 0 % yqdv=025) NEUTROPHILS ABSOLUTE COUNT (BEAKER) (test 2.27 K/ L 1.78-5.38 gsjm=777) LYMPHOCYTES ABSOLUTE COUNT (BEAKER) (test 0.56 K/ L 1.32-3.57 ltzi=100) MONOCYTES ABSOLUTE COUNT (BEAKER) (test sxhu=419) 0.66 K/ L 0.30-0.82 EOSINOPHILS ABSOLUTE COUNT (BEAKER) (test 0.12 K/ L 0.04-0.54 jejg=870) BASOPHILS ABSOLUTE COUNT (BEAKER) (test sknd=983) 0.01 K/ L 0.01-0.08 IMMATURE GRANULOCYTES-RELATIVE PERCENT (BEAKER) 1 % 0-1 (test wnto=3518) PROTHROMBIN [id number] 05:34:00 Test Item Value Reference Range Comments PROTIME (BEAKER) (test twcj=577) 21.7 seconds 11.7-14.7 INR (BEAKER) (test atur=931) 1.9 <=5.9 RECOMMENDED COUMADIN/WARFARIN INR THERAPY RANGESSTANDARD DOSE: 2.0 - 3.0 Includes: PROPHYLAXIS forvenous thrombosis, systemic embolization; TREATMENT for venous thrombosis and/or pulmonary embolus.HIGH RISK: Target INR is 2.5-3.5 for patients with mechanical heart valves.EOSINOPHIL SMEAR, [id number] 21: 51:00 Test Item Value Reference Range Comments EOSINOPHIL SMEAR, URINE (BEAKER) (test No EOS seen No EOS seen ajqu=3845) BODY FLUID CELL COUNT WITH [id number] 21:42:00 Test Item Value Reference Range Comments APPEARANCE FLUID (BEAKER) (test quub=352) Hazy Clear COLOR FLUID (BEAKER) (test cuba=648) Yellow Colorless, Straw RBC FLUID (BEAKER) (test lghk=593) 70 /cu mm <=1 ADJUSTED WBC FLUID (BEAKER) (test sryl=6024) 44 /cu mm <=5 LINING CELLS (BEAKER) (test yoic=6642) 8 /cu mm <=1 NEUTROPHILS FLUID (BEAKER) (test ffxi=5283) 0 % LYMPHS FLUID (BEAKER) (test hnse=228) 11 % MONO/MACROPHAGE FLUID (BEAKER) (test prcz=499) 89 % EOSINOPHILS FLUID (BEAKER) (test digr=699) 0 % BASO FLUID (BEAKER) (test hxjt=217) 0 % CONTAINER BODY FLUID (BEAKER) (test pgyl=8233) EDTA Tube OSMOLALITY, [id number] 19:46:00 Test Item Value Reference Range Comments OSMOLALITY URINE (BEAKER) (test iykg=802) 355 mOsm/kg 40-1400 SODIUM, RANDOM [id number] 19:35:00 Test Item Value Reference Range Comments SODIUM URINE (BEAKER) (test wmom=297) < meq/L Reference Range: No NormalsPROTEIN, RANDOM [id number] 19:27:00 Test Item Value Reference Range Comments PROTEIN, URINE (BEAKER) (test yume=8800) 7 mg/dL 0-14 CREATININE, RANDOM [id number] 19:25:00 Test Item Value Reference Range Comments CREATININE URINE (BEAKER) (test avbe=495) 150.3 mg/dL Reference Range: No [id number] 16:26:00 Test Item Value Reference Range Comments PREALBUMIN (BEAKER) (test rffx=799) 5 mg/dL 14-45 Listed for OLT - Nutrition Surveillance ([facility] Hepatology Transplant Team)U/S, [id number] 14:56:00Reason for exam:->ascites - limit to 5L [...] MDReport Verified Date/Time: 05/05/2018 14:56:27 Reading Location: [address] Ultrasound Reading Room BASI METABOLIC [id number] 09:36:00 Test Item Value Reference Range Comments SODIUM (BEAKER) (test 125 meq/L 136-145 wfef=812) POTASSIUM (BEAKER) (test 4.2 meq/L 3.5-5.1 bybb=310) CHLORIDE (BEAKER) (test 95 meq/L 98-107 swje=799) CO2 (BEAKER) (test 23 meq/L 22-29 nsit=152) BLOOD UREA NITROGEN 29 mg/dL 7-21 (BEAKER) (test hlks=538) CREATININE (BEAKER) (test 2.01 mg/dL 0.57-1.25 fech=691) GLUCOSE RANDOM (BEAKER) 112 mg/dL 70-105 (test eqjf=008) CALCIUM (BEAKER) (test 9.2 mg/dL 8.4-10.2 hgpm=557) EGFR (BEAKER) (test 35 mL/min/1.73 sq m ESTIMATED GFR IS NOT xlpk=9895) ACCURATE CREATININE CLEARANCE IN PREDICTING GLOMERULAR FILTRATION RATE. ESTIMATED GFR IS NOT APPLICABLE FOR DIALYSIS PATIENTS. Specimen slightly ictericHEPATIC FUNCTION [id number] 09:36:00 Test Item Value Reference Range Comments TOTAL PROTEIN (BEAKER) (test iuod=143) 5.3 gm/dL 6.0-8.3 ALBUMIN (BEAKER) (test szwl=3512) 3.0 g/dL 3.5-5.0 BILIRUBIN TOTAL (BEAKER) (test aqrx=407) 4.1 mg/dL 0.2-1.2 BILIRUBIN DIRECT (BEAKER) (test hgik=672) 2.8 mg/dL 0.1-0.5 ALKALINE PHOSPHATASE (BEAKER) (test nmgi=130) 115 U/L 40-150 AST (SGOT) (BEAKER) (test womx=579) 20 U/L 5-34 ALT (SGPT) (BEAKER) (test vams=141) 9 U/L 6-55 Specimen slightly ictericCBC W/PLT COUNT & AUTO [id number] 09:28 :00 Test Item Value Reference Range Comments WHITE BLOOD CELL COUNT (BEAKER) (test tbyh=576) 4.4 K/ L 3.5-10.5 RED BLOOD CELL COUNT (BEAKER) (test jwtv=630) 2.20 M/ L 4.63-6.08 HEMOGLOBIN (BEAKER) (test qhyr=245) 7.1 GM/DL 13.7-17.5 HEMATOCRIT (BEAKER) (test wodw=013) 21.1 % 40.1-51.0 MEAN CORPUSCULAR VOLUME (BEAKER) (test wmen=318) 95.9 fL 79.0-92.2 MEAN CORPUSCULAR HEMOGLOBIN (BEAKER) (test 32.3 pg 25.7-32.2 ocuy=078) MEAN CORPUSCULAR HEMOGLOBIN CONC (BEAKER) (test 33.6 GM/DL 32.3-36.5 ujyj=211) RED CELL DISTRIBUTION WIDTH (BEAKER) (test 16.7 % 11.6-14.4 wzkg=911) PLATELET COUNT (BEAKER) (test athe=595) 60 K/CU MM 150-450 MEAN PLATELET VOLUME (BEAKER) (test klqi=470) 9.7 fL 9.4-12.4 NUCLEATED RED BLOOD CELLS (BEAKER) (test 0 /100 WBC 0-0 olet=976) NEUTROPHILS RELATIVE PERCENT (BEAKER) (test 71 % vdgg=524) LYMPHOCYTES RELATIVE PERCENT (BEAKER) (test 9 % hxhz=685) MONOCYTES RELATIVE PERCENT (BEAKER) (test 16 % ropd=562) EOSINOPHILS RELATIVE PERCENT (BEAKER) (test 3 % noth=727) BASOPHILS RELATIVE PERCENT (BEAKER) (test 0 % acqx=473) NEUTROPHILS ABSOLUTE COUNT (BEAKER) (test 3.10 K/ L 1.78-5.38 dbog=523) LYMPHOCYTES ABSOLUTE COUNT (BEAKER) (test 0.39 K/ L 1.32-3.57 ejpn=810) MONOCYTES ABSOLUTE COUNT (BEAKER) (test xeyl=473) 0.69 K/ L 0.30-0.82 EOSINOPHILS ABSOLUTE COUNT (BEAKER) (test 0.12 K/ L 0.04-0.54 vvlk=053) BASOPHILS ABSOLUTE COUNT (BEAKER) (test tafd=449) 0.01 K/ L 0.01-0.08 IMMATURE GRANULOCYTES-RELATIVE PERCENT (BEAKER) 1 % 0-1 (test pgjx=7638) PROTHROMBIN [id number] 09:07:00 Test Item Value Reference Range Comments PROTIME (BEAKER) (test aanl=339) 21.6 seconds 11.7-14.7 INR (BEAKER) (test wdys=701) 1.9 <=5.9 RECOMMENDED COUMADIN/WARFARIN INR THERAPY RANGESSTANDARD DOSE: 2.0 - 3.0 Includes: PROPHYLAXIS forvenous thrombosis, systemic embolization; TREATMENT for venous thrombosis and/or pulmonary embolus.HIGH RISK: Target INR is 2.5-3.5 for patients with mechanical heart valves.[id number] 13:59:00 Test Item Value Reference Range Comments POC-CREATININE (BEAKER) 2.0 mg/dL 0.6-1.3 TESTED AT [facility] [address] [facility] (test clca=0148) [facility] [address] POC-EGFR (BEAKER) (test 35 mL/min/1.73M2 mlqu=8287) PET/CT, LIMITED AREA [id number] 08:25:00PET/ CT ChestReason for Exam:-> Elongated nodular [...] thighsAdditional imaging: NoneSerum blood glucose: 119CPT Code: 10670 FINDINGS:Head and Neck: There is no trisha [...] Hung Verified Date/Time: 03/31/2018 08:25:09 POCT- GLUCOSE [id number] 14:54:00 Test Item Value Reference Range Comments POC-GLUCOSE METER (BEAKER) 119 mg/dL 70-110 TESTED AT [facility] [address] (test ewmy=4854) [facility] [address] COMPREHENSIVE METABOLIC [id number] 16:49:00 Test Item Value Reference Range Comments TOTAL PROTEIN (BEAKER) 6.2 gm/dL 6.0-8.3 (test spas=737) ALBUMIN (BEAKER) (test 3.4 g/dL 3.5-5.0 bomm=0448) ALKALINE PHOSPHATASE 139 U/L 40-150 (BEAKER) (test axsr=200) BILIRUBIN TOTAL (BEAKER) 4.0 mg/dL 0.2-1.2 (test roqt=550) SODIUM (BEAKER) (test 129 meq/L 136-145 jrge=148) POTASSIUM (BEAKER) (test 4.3 meq/L 3.5-5.1 qojn=349) CHLORIDE (BEAKER) (test 96 meq/L 98-107 adsy=766) CO2 (BEAKER) (test 22 meq/L 22-29 orhi=986) BLOOD UREA NITROGEN 28 mg/dL 7-21 (BEAKER) (test hyxm=344) CREATININE (BEAKER) (test 1.51 mg/dL 0.57-1.25 hcpt=940) GLUCOSE RANDOM (BEAKER) 89 mg/dL 70-105 (test ofba=498) CALCIUM (BEAKER) (test 9.5 mg/dL 8.4-10.2 ksft=160) AST (SGOT) (BEAKER) (test 26 U/L 5-34 wdaf=008) ALT (SGPT) (BEAKER) (test 11 U/L 6-55 bsey=945) EGFR (BEAKER) (test 49 mL/min/1.73 sq m ESTIMATED GFR IS NOT qtlb=5667) ACCURATE CREATININE CLEARANCE IN PREDICTING GLOMERULAR FILTRATION RATE. ESTIMATED GFR IS NOT APPLICABLE FOR DIALYSIS PATIENTS. Specimen slightly ictericBILIRUBIN, [id number] 16:49:00 Test Item Value Reference Range Comments BILIRUBIN DIRECT (BEAKER) (test ymjc=489) 2.8 mg/dL 0.1-0.5 PROTHROMBIN [id number] 16:36:00 Test Item Value Reference Range Comments PROTIME (BEAKER) (test yrbh=159) 19.0 seconds 11.7-14.7 INR (BEAKER) (test rcer=640) 1.6 <=5.9 RECOMMENDED COUMADIN/WARFARIN INR THERAPY RANGESSTANDARD DOSE: 2.0 - 3.0 Includes: PROPHYLAXIS forvenous thrombosis, systemic embolization; TREATMENT for venous thrombosis and/or pulmonary embolus.HIGH RISK: Target INR is 2.5-3.5 for patients with mechanical heart valves.CBC W/PLT COUNT & AUTO [id number] 16:27:00 Test Item Value Reference Range Comments WHITE BLOOD CELL COUNT (BEAKER) (test ugls=488) 6.0 K/ L 3.5-10.5 RED BLOOD CELL COUNT (BEAKER) (test erzk=640) 2.74 M/ L 4.63-6.08 HEMOGLOBIN (BEAKER) (test qwnw=609) 9.3 GM/DL 13.7-17.5 HEMATOCRIT (BEAKER) (test kovz=079) 27.6 % 40.1-51.0 MEAN CORPUSCULAR VOLUME (BEAKER) (test lsls=620) 100.7 fL 79.0-92.2 MEAN CORPUSCULAR HEMOGLOBIN (BEAKER) (test 33.9 pg 25.7-32.2 rkuw=912) MEAN CORPUSCULAR HEMOGLOBIN CONC (BEAKER) (test 33.7 GM/DL 32.3-36.5 xmxf=208) RED CELL DISTRIBUTION WIDTH (BEAKER) (test 14.9 % 11.6-14.4 cloq=245) PLATELET COUNT (BEAKER) (test dorm=199) 96 K/CU MM 150-450 MEAN PLATELET VOLUME (BEAKER) (test bsuk=765) 9.4 fL 9.4-12.4 NUCLEATED RED BLOOD CELLS (BEAKER) (test 0 /100 WBC 0-0 uipl=746) NEUTROPHILS RELATIVE PERCENT (BEAKER) (test 64 % qlwc=287) LYMPHOCYTES RELATIVE PERCENT (BEAKER) (test 11 % lkax=427) MONOCYTES RELATIVE PERCENT (BEAKER) (test 16 % evox=539) EOSINOPHILS RELATIVE PERCENT (BEAKER) (test 7 % syzq=894) BASOPHILS RELATIVE PERCENT (BEAKER) (test 1 % jofi=915) NEUTROPHILS ABSOLUTE COUNT (BEAKER) (test 3.83 K/ L 1.78-5.38 nbya=864) LYMPHOCYTES ABSOLUTE COUNT (BEAKER) (test 0.66 K/ L 1.32-3.57 oazp=229) MONOCYTES ABSOLUTE COUNT (BEAKER) (test cuyx=159) 0.95 K/ L 0.30-0.82 EOSINOPHILS ABSOLUTE COUNT (BEAKER) (test 0.41 K/ L 0.04-0.54 ztzx=662) BASOPHILS ABSOLUTE COUNT (BEAKER) (test inmc=933) 0.03 K/ L 0.01-0.08 IMMATURE GRANULOCYTES-RELATIVE PERCENT (BEAKER) 2 % 0-1 (test tznh=6562) BASIC METABOLIC [id number] 08:26:00 Test Item Value Reference Range Comments SODIUM (BEAKER) (test 127 meq/L 136-145 wdug=329) POTASSIUM (BEAKER) (test 4.3 meq/L 3.5-5.1 grtj=326) CHLORIDE (BEAKER) (test 96 meq/L 98-107 gfck=597) CO2 (BEAKER) (test 23 meq/L 22-29 dqnd=441) BLOOD UREA NITROGEN 25 mg/dL 7-21 (BEAKER) (test bdmd=457) CREATININE (BEAKER) (test 1.46 mg/dL 0.57-1.25 cybd=128) GLUCOSE RANDOM (BEAKER) 130 mg/dL 70-105 (test geec=984) CALCIUM (BEAKER) (test 9.1 mg/dL 8.4-10.2 eytw=045) EGFR (BEAKER) (test 51 mL/min/1.73 sq m ESTIMATED GFR IS NOT cnfs=0978) ACCURATE CREATININE CLEARANCE IN PREDICTING GLOMERULAR FILTRATION RATE. ESTIMATED GFR IS NOT APPLICABLE FOR DIALYSIS PATIENTS. Specimen slightly ictericCBC (HEMOGRAM ONLY)2018-02-23 08:06:00 Test Item Value Reference Range Comments WHITE BLOOD CELL COUNT (BEAKER) (test arzv=271) 5.4 K/ L 3.5-10.5 RED BLOOD CELL COUNT (BEAKER) (test xdfl=840) 2.64 M/ L 4.63-6.08 HEMOGLOBIN (BEAKER) (test ivqc=911) 8.8 GM/DL 13.7-17.5 HEMATOCRIT (BEAKER) (test xtux=681) 26.2 % 40.1-51.0 MEAN CORPUSCULAR VOLUME (BEAKER) (test mfne=557) 99.2 fL 79.0-92.2 MEAN CORPUSCULAR HEMOGLOBIN (BEAKER) (test 33.3 pg 25.7-32.2 wyxo=861) MEAN CORPUSCULAR HEMOGLOBIN CONC (BEAKER) (test 33.6 GM/DL 32.3-36.5 yqqr=289) RED CELL DISTRIBUTION WIDTH (BEAKER) (test 16.2 % 11.6-14.4 xojt=686) PLATELET COUNT (BEAKER) (test qhfh=153) 100 K/CU MM 150-450 MEAN PLATELET VOLUME (BEAKER) (test tfwq=667) 8.7 fL 9.4-12.4 NUCLEATED RED BLOOD CELLS (BEAKER) (test 0 /100 WBC 0-0 grsc=292) COMPREHENSIVE METABOLIC [id number] 15:06:00 Test Item Value Reference Range Comments TOTAL PROTEIN (BEAKER) 6.5 gm/dL 6.0-8.3 (test kpad=731) ALBUMIN (BEAKER) (test 3.7 g/dL 3.5-5.0 vpmn=4010) ALKALINE PHOSPHATASE 135 U/L 40-150 (BEAKER) (test hhpr=774) BILIRUBIN TOTAL (BEAKER) 4.5 mg/dL 0.2-1.2 (test cxes=339) SODIUM (BEAKER) (test 131 meq/L 136-145 gjqn=797) POTASSIUM (BEAKER) (test 5.8 meq/L 3.5-5.1 gleg=455) CHLORIDE (BEAKER) (test 103 meq/L 98-107 jwrx=245) CO2 (BEAKER) (test 24 meq/L 22-29 lvnq=119) BLOOD UREA NITROGEN 27 mg/dL 7-21 (BEAKER) (test gzlw=562) CREATININE (BEAKER) (test 1.17 mg/dL 0.57-1.25 pflj=725) GLUCOSE RANDOM (BEAKER) 111 mg/dL 70-105 (test xupu=152) CALCIUM (BEAKER) (test 11.0 mg/dL 8.4-10.2 eaar=186) AST (SGOT) (BEAKER) (test 28 U/L 5-34 fydt=367) ALT (SGPT) (BEAKER) (test 19 U/L 6-55 tawm=281) EGFR (BEAKER) (test 65 mL/min/1.73 sq m ESTIMATED GFR IS NOT hcfw=0673) ACCURATE CREATININE CLEARANCE IN PREDICTING GLOMERULAR FILTRATION RATE. ESTIMATED GFR IS NOT APPLICABLE FOR DIALYSIS PATIENTS. Specimen slightly ictericBILIRUBIN, [id number] 15:06:00 Test Item Value Reference Range Comments BILIRUBIN DIRECT (BEAKER) (test pckq=362) 3.0 mg/dL 0.1-0.5 PROTHROMBIN [id number] 14:42:00 Test Item Value Reference Range Comments PROTIME (BEAKER) (test iywp=844) 19.1 seconds 11.7-14.7 INR (BEAKER) (test oexc=092) 1.6 <=5.9 RECOMMENDED COUMADIN/WARFARIN INR THERAPY RANGESSTANDARD DOSE: 2.0 - 3.0 Includes: PROPHYLAXIS forvenous thrombosis, systemic embolization; TREATMENT for venous thrombosis and/or pulmonary embolus.HIGH RISK: Target INR is 2.5-3.5 for patients with mechanical heart valves.CBC W/PLT COUNT & AUTO [id number] 14:36:00 Test Item Value Reference Range Comments WHITE BLOOD CELL COUNT (BEAKER) (test ytjg=896) 5.5 K/ L 3.5-10.5 RED BLOOD CELL COUNT (BEAKER) (test ishh=005) 2.84 M/ L 4.63-6.08 HEMOGLOBIN (BEAKER) (test ezsr=892) 9.5 GM/DL 13.7-17.5 HEMATOCRIT (BEAKER) (test pwdw=896) 28.8 % 40.1-51.0 MEAN CORPUSCULAR VOLUME (BEAKER) (test lepr=070) 101.4 fL 79.0-92.2 MEAN CORPUSCULAR HEMOGLOBIN (BEAKER) (test 33.5 pg 25.7-32.2 zgqm=173) MEAN CORPUSCULAR HEMOGLOBIN CONC (BEAKER) (test 33.0 GM/DL 32.3-36.5 hicc=235) RED CELL DISTRIBUTION WIDTH (BEAKER) (test 19.4 % 11.6-14.4 txsq=791) PLATELET COUNT (BEAKER) (test alye=760) 65 K/CU MM 150-450 MEAN PLATELET VOLUME (BEAKER) (test bzio=619) 8.8 fL 9.4-12.4 NUCLEATED RED BLOOD CELLS (BEAKER) (test 0 /100 WBC 0-0 vtno=670) NEUTROPHILS RELATIVE PERCENT (BEAKER) (test 66 % mjek=216) LYMPHOCYTES RELATIVE PERCENT (BEAKER) (test 14 % ouzu=509) MONOCYTES RELATIVE PERCENT (BEAKER) (test 15 % jwqg=729) EOSINOPHILS RELATIVE PERCENT (BEAKER) (test 4 % yovj=663) BASOPHILS RELATIVE PERCENT (BEAKER) (test 0 % eidg=617) NEUTROPHILS ABSOLUTE COUNT (BEAKER) (test 3.58 K/ L 1.78-5.38 yqan=359) LYMPHOCYTES ABSOLUTE COUNT (BEAKER) (test 0.78 K/ L 1.32-3.57 zeuu=189) MONOCYTES ABSOLUTE COUNT (BEAKER) (test gndr=402) 0.79 K/ L 0.30-0.82 EOSINOPHILS ABSOLUTE COUNT (BEAKER) (test 0.23 K/ L 0.04-0.54 ydne=737) BASOPHILS ABSOLUTE COUNT (BEAKER) (test xbxe=438) 0.02 K/ L 0.01-0.08 IMMATURE GRANULOCYTES-RELATIVE PERCENT (BEAKER) 1 % 0-1 (test fnha=5649) RAD, KNEE, COMPLETE (4 VIEWS), [id number] 11:15:00Reason for exam:->FALL , PAINFINAL REPORT Bilateral [...] MDReport Verified Date/Time: 01/06/2018 11:15:08 Reading Location: [facility] Radiology Reading Room RAD, KNEE, COMPLETE (4 VIEWS), [id number] 11:15:00Reason for exam:->FALL, PAINFINAL REPORT Bilateral knee [...] MDReport Verified Date/Time: 01/06/2018 11:15:08 Reading Location: [facility] Radiology Reading Room CBC W/PLT COUNT & AUTO [id number] 10: 58:00 Test Item Value Reference Range Comments WHITE BLOOD CELL COUNT (BEAKER) (test ozfq=861) 2.9 K/ L 3.5-10.5 RED BLOOD CELL COUNT (BEAKER) (test onbj=329) 2.27 M/ L 4.63-6.08 HEMOGLOBIN (BEAKER) (test ehmr=102) 7.1 GM/DL 13.7-17.5 HEMATOCRIT (BEAKER) (test gsit=337) 21.0 % 40.1-51.0 MEAN CORPUSCULAR VOLUME (BEAKER) (test mfqb=450) 92.5 fL 79.0-92.2 MEAN CORPUSCULAR HEMOGLOBIN (BEAKER) (test 31.3 pg 25.7-32.2 snfp=814) MEAN CORPUSCULAR HEMOGLOBIN CONC (BEAKER) (test 33.8 GM/DL 32.3-36.5 klji=006) RED CELL DISTRIBUTION WIDTH (BEAKER) (test 17.2 % 11.6-14.4 kcex=375) PLATELET COUNT (BEAKER) (test zovq=898) 42 K/CU MM 150-450 MEAN PLATELET VOLUME (BEAKER) (test tclw=176) 10.1 fL 9.4-12.4 NUCLEATED RED BLOOD CELLS (BEAKER) (test 0 /100 WBC 0-0 dxol=702) NEUTROPHILS RELATIVE PERCENT (BEAKER) (test 77 % ndlr=451) LYMPHOCYTES RELATIVE PERCENT (BEAKER) (test 12 % lhsy=620) MONOCYTES RELATIVE PERCENT (BEAKER) (test 10 % nati=128) EOSINOPHILS RELATIVE PERCENT (BEAKER) (test 1 % mfnb=561) BASOPHILS RELATIVE PERCENT (BEAKER) (test 0 % jskh=472) NEUTROPHILS ABSOLUTE COUNT (BEAKER) (test 2.21 K/ L 1.78-5.38 vfml=423) LYMPHOCYTES ABSOLUTE COUNT (BEAKER) (test 0.33 K/ L 1.32-3.57 vuqf=692) MONOCYTES ABSOLUTE COUNT (BEAKER) (test oniq=291) 0.30 K/ L 0.30-0.82 EOSINOPHILS ABSOLUTE COUNT (BEAKER) (test 0.03 K/ L 0.04-0.54 fcyp=787) BASOPHILS ABSOLUTE COUNT (BEAKER) (test blym=185) 0.00 K/ L 0.01-0.08 IMMATURE GRANULOCYTES-RELATIVE PERCENT (BEAKER) 0 % 0-1 (test omba=7058) [id number] 06:06:00 Test Item Value Reference Range Comments PHOSPHORUS (BEAKER) (test nkjc=271) 3.6 mg/dL 2.3-4.7 [id number] 06:06:00 Test Item Value Reference Range Comments MAGNESIUM (BEAKER) (test iwgf=771) 2.0 mg/dL 1.6-2.6 BASIC METABOLIC [id number] 06:06:00 Test Item Value Reference Range Comments SODIUM (BEAKER) (test 130 meq/L 136-145 rdkf=838) POTASSIUM (BEAKER) (test 4.4 meq/L 3.5-5.1 hyjk=311) CHLORIDE (BEAKER) (test 100 meq/L 98-107 owfk=856) CO2 (BEAKER) (test 23 meq/L 22-29 pbup=945) BLOOD UREA NITROGEN 21 mg/dL 7-21 (BEAKER) (test rjcg=157) CREATININE (BEAKER) (test 1.11 mg/dL 0.57-1.25 pbqj=130) GLUCOSE RANDOM (BEAKER) 120 mg/dL 70-105 (test rncd=399) CALCIUM (BEAKER) (test 9.4 mg/dL 8.4-10.2 xxvn=538) EGFR (BEAKER) (test 70 mL/min/1.73 sq m ESTIMATED GFR IS NOT gwmx=8945) ACCURATE CREATININE CLEARANCE IN PREDICTING GLOMERULAR FILTRATION RATE. ESTIMATED GFR IS NOT APPLICABLE FOR DIALYSIS PATIENTS. Specimen slightly ictericPROTHROMBIN [id number] 06:02:00 Test Item Value Reference Range Comments PROTIME (BEAKER) (test ftuo=854) 22.9 seconds 11.7-14.7 INR (BEAKER) (test pqpc=881) 2.0 <=5.9 RECOMMENDED COUMADIN/WARFARIN INR THERAPY RANGESSTANDARD DOSE: 2.0 - 3.0 Includes: PROPHYLAXIS forvenous thrombosis, systemic embolization; TREATMENT for venous thrombosis and/or pulmonary embolus.HIGH RISK: Target INR is 2.5-3.5 for patients with mechanical heart valves.CALCIUM, [id number] 06:01:00 Test Item Value Reference Range Comments CALCIUM IONIZED (BEAKER) (test gbtt=287) 1.11 mmol/L 1.12-1.27 PH, BLOOD (BEAKER) (test mfyu=1857) 7.53 CORTISOL,60 [id number] 23:20:00 Test Item Value Reference Range Comments CORTISOL BASELINE NETWORKED (BEAKER) (test 4.8 mcg/dL oqhx=4363) CORTISOL 30 MINUTE NETWORKED (BEAKER) (test 9.2 mcg/dL uygd=8864) CORTISOL, 60 MINUTE (BEAKER) (test pcjf=0473) 12.6 ug/dL ACTH STIMULATION TEST INTERPRETATION GUIDELINES(Synonyms: [...] study by Mindy et al (NEVAEH 2000,283( 8):0593-54), the ACTH Stimulation Test provides important prognostic [...] serum cortisollevel 60 minutes after cosyntropin administration.CORTISOL,30 [id number] 22:35:00 Test Item Value Reference Range Comments CORTISOL BASELINE NETWORKED (BEAKER) (test 4.8 mcg/dL etxn=4356) CORTISOL, 30 MINUTE (BEAKER) (test mecy=7348) 9.2 ug/dL ACTH STIMULATION TEST INTERPRETATION GUIDELINES(Synonyms: [...] Draw serum cortisollevel 60 minutes after cosyntropin administration.CORTISOL,[id number] 22:35:00 Test Item Value Reference Range Comments CORTISOL, BASELINE (BEAKER) (test hmbi=4410) 4.8 ug/dL ACTH STIMULATION TEST INTERPRETATION GUIDELINES(Synonyms: [...] serum cortisollevel 60 minutes after cosyntropin administration.U/S, [id number] 17:54:00Reason for exam:->therapeuticFINAL REPORT History: Ascites. PROCEDURE: Following informed written consent,the patient's right lower quadrant was prepped and draped in the usual sterile manner. 2% lidocaine was given locally for anesthesia. No conscious sedation was administered. Using ultrasound guidance, a 5 [place] one-step catheter was advanced percutaneously into the [...] 1. Successful uncomplicated ultrasound-guided paracentesis. Signed: Karina Raineport Verified Date/Time: 01/05/2018 17: 54:16 Reading Location: [address] Ultrasound Reading Room [id number] 11:19:00 Test Item Value Reference Range Comments CORTISOL, TOTAL (BEAKER) (test qdui=4482) 2.7 ug/dL 3.7-19.4 [id number] 10:21:00 Test Item Value Reference Range Comments PHOSPHORUS (BEAKER) (test gufh=751) 2.8 mg/dL 2.3-4.7 [id number] 10:21:00 Test Item Value Reference Range Comments MAGNESIUM (BEAKER) (test orqz=985) 1.9 mg/dL 1.6-2.6 BASIC METABOLIC [id number] 10:21:00 Test Item Value Reference Range Comments SODIUM (BEAKER) (test 127 meq/L 136-145 hwja=139) POTASSIUM (BEAKER) (test 5.0 meq/L 3.5-5.1 csun=791) CHLORIDE (BEAKER) (test 100 meq/L 98-107 dnvi=583) CO2 (BEAKER) (test 22 meq/L 22-29 jwri=273) BLOOD UREA NITROGEN 25 mg/dL 7-21 (BEAKER) (test qubo=152) CREATININE (BEAKER) (test 1.17 mg/dL 0.57-1.25 yits=532) GLUCOSE RANDOM (BEAKER) 84 mg/dL 70-105 (test bylf=491) CALCIUM (BEAKER) (test 8.7 mg/dL 8.4-10.2 mrrr=713) EGFR (BEAKER) (test 65 mL/min/1.73 sq m ESTIMATED GFR IS NOT baif=3576) ACCURATE CREATININE CLEARANCE IN PREDICTING GLOMERULAR FILTRATION RATE. ESTIMATED GFR IS NOT APPLICABLE FOR DIALYSIS PATIENTS. Specimen slightly ictericCBC W/PLT COUNT & AUTO [id number] 08:42 :00 Test Item Value Reference Range Comments WHITE BLOOD CELL COUNT (BEAKER) (test xhjs=868) 2.7 K/ L 3.5-10.5 RED BLOOD CELL COUNT (BEAKER) (test twez=168) 2.33 M/ L 4.63-6.08 HEMOGLOBIN (BEAKER) (test phcg=117) 7.3 GM/DL 13.7-17.5 HEMATOCRIT (BEAKER) (test ehrc=167) 22.0 % 40.1-51.0 MEAN CORPUSCULAR VOLUME (BEAKER) (test odbx=105) 94.4 fL 79.0-92.2 MEAN CORPUSCULAR HEMOGLOBIN (BEAKER) (test 31.3 pg 25.7-32.2 nxfd=802) MEAN CORPUSCULAR HEMOGLOBIN CONC (BEAKER) (test 33.2 GM/DL 32.3-36.5 ofum=167) RED CELL DISTRIBUTION WIDTH (BEAKER) (test 17.2 % 11.6-14.4 hziw=339) PLATELET COUNT (BEAKER) (test uurt=078) 45 K/CU MM 150-450 MEAN PLATELET VOLUME (BEAKER) (test srwf=424) 9.3 fL 9.4-12.4 NUCLEATED RED BLOOD CELLS (BEAKER) (test 0 /100 WBC 0-0 ojxj=539) NEUTROPHILS RELATIVE PERCENT (BEAKER) (test 60 % zqlq=121) LYMPHOCYTES RELATIVE PERCENT (BEAKER) (test 17 % sura=179) MONOCYTES RELATIVE PERCENT (BEAKER) (test 16 % ydqi=266) EOSINOPHILS RELATIVE PERCENT (BEAKER) (test 6 % gndo=614) BASOPHILS RELATIVE PERCENT (BEAKER) (test 0 % xrno=356) NEUTROPHILS ABSOLUTE COUNT (BEAKER) (test 1.63 K/ L 1.78-5.38 kpga=655) LYMPHOCYTES ABSOLUTE COUNT (BEAKER) (test 0.45 K/ L 1.32-3.57 fbqt=017) MONOCYTES ABSOLUTE COUNT (BEAKER) (test oois=212) 0.44 K/ L 0.30-0.82 EOSINOPHILS ABSOLUTE COUNT (BEAKER) (test 0.16 K/ L 0.04-0.54 dopj=307) BASOPHILS ABSOLUTE COUNT (BEAKER) (test dyin=434) 0.01 K/ L 0.01-0.08 IMMATURE GRANULOCYTES-RELATIVE PERCENT (BEAKER) 1 % 0-1 (test qaxm=0415) (MANUAL DIFFERENTIAL)2018-01-05 08:42:00 Test Item Value Reference Range Comments TOTAL COUNTED (BEAKER) (test zeqf=8612) WBC MORPHOLOGY (BEAKER) (test vnep=320) Normal PLT MORPHOLOGY (BEAKER) (test dfhr=314) Normal ANISOCYTOSIS (BEAKER) (test zavn=812) 1+ few CALCIUM, [id number] 08:10:00 Test Item Value Reference Range Comments CALCIUM IONIZED (BEAKER) (test dzyk=379) 1.08 mmol/L 1.12-1.27 PH, BLOOD (BEAKER) (test qbbd=6367) 7.44 PROTHROMBIN [id number] 07:12:00 Test Item Value Reference Range Comments PROTIME (BEAKER) (test dctu=939) 22.4 seconds 11.7-14.7 INR (BEAKER) (test xxph=928) 2.0 <=5.9 RECOMMENDED COUMADIN/WARFARIN INR THERAPY RANGESSTANDARD DOSE: 2.0 - 3.0 Includes: PROPHYLAXIS forvenous thrombosis, systemic embolization; TREATMENT for venous thrombosis and/or pulmonary embolus.HIGH RISK: Target INR is 2.5-3.5 for patients with mechanical heart valves.[id number] 17:54:00 Test Item Value Reference Range Comments SODIUM (BEAKER) (test tlij=303) 129 meq/L 136-145 POTASSIUM (BEAKER) (test klzc=773) 5.5 meq/L 3.5-5.1 CHLORIDE (BEAKER) (test tywe=729) 101 meq/L 98-107 CO2 (BEAKER) (test aijd=065) 26 meq/L 22-29 Call [id number] with resultsCBC (HEMOGRAM ONLY)2018-01-04 07:16:00 Test Item Value Reference Range Comments WHITE BLOOD CELL COUNT (BEAKER) (test lekw=116) 2.9 K/ L 3.5-10.5 RED BLOOD CELL COUNT (BEAKER) (test kfjl=701) 2.25 M/ L 4.63-6.08 HEMOGLOBIN (BEAKER) (test gidf=111) 7.3 GM/DL 13.7-17.5 HEMATOCRIT (BEAKER) (test alwc=901) 21.3 % 40.1-51.0 MEAN CORPUSCULAR VOLUME (BEAKER) (test caeu=276) 94.7 fL 79.0-92.2 MEAN CORPUSCULAR HEMOGLOBIN (BEAKER) (test 32.4 pg 25.7-32.2 pgit=127) MEAN CORPUSCULAR HEMOGLOBIN CONC (BEAKER) (test 34.3 GM/DL 32.3-36.5 jeus=149) RED CELL DISTRIBUTION WIDTH (BEAKER) (test 17.6 % 11.6-14.4 jple=331) PLATELET COUNT (BEAKER) (test wjpc=661) 59 K/CU MM 150-450 MEAN PLATELET VOLUME (BEAKER) (test evcb=377) 11.3 fL 9.4-12.4 NUCLEATED RED BLOOD CELLS (BEAKER) (test 0 /100 WBC 0-0 jsqz=515) COMPREHENSIVE METABOLIC [id number] 06:49:00 Test Item Value Reference Range Comments TOTAL PROTEIN (BEAKER) 5.3 gm/dL 6.0-8.3 Specimen slightly (test zuny=005) hemolyzed ALBUMIN (BEAKER) (test 3.3 g/dL 3.5-5.0 Specimen slightly lsbx=3875) hemolyzed ALKALINE PHOSPHATASE 81 U/L 40-150 (BEAKER) (test nqkr=844) BILIRUBIN TOTAL (BEAKER) 2.4 mg/dL 0.2-1.2 Specimen slightly (test ajbq=905) hemolyzed SODIUM (BEAKER) (test 127 meq/L 136-145 hfbd=593) POTASSIUM (BEAKER) (test 5.7 meq/L 3.5-5.1 Specimen slightly jgmv=324) hemolyzed CHLORIDE (BEAKER) (test 100 meq/L 98-107 yxnj=965) CO2 (BEAKER) (test 20 meq/L 22-29 frhj=480) BLOOD UREA NITROGEN 22 mg/dL 7-21 (BEAKER) (test wspz=470) CREATININE (BEAKER) (test 1.14 mg/dL 0.57-1.25 Specimen slightly qmgc=140) hemolyzed GLUCOSE RANDOM (BEAKER) 96 mg/dL 70-105 (test zldy=545) CALCIUM (BEAKER) (test 8.9 mg/dL 8.4-10.2 nrqj=596) AST (SGOT) (BEAKER) (test 30 U/L 5-34 Specimen slightly gghb=995) hemolyzed ALT (SGPT) (BEAKER) (test 8 U/L 6-55 Specimen slightly kijd=785) hemolyzed EGFR (BEAKER) (test 67 mL/min/1.73 sq m ESTIMATED GFR IS NOT wfdu=7934) ACCURATE CREATININE CLEARANCE IN PREDICTING GLOMERULAR FILTRATION RATE. ESTIMATED GFR IS NOT APPLICABLE FOR DIALYSIS PATIENTS. Specimen slightly ictericPROTHROMBIN [id number] 06:15:00 Test Item Value Reference Range Comments PROTIME (BEAKER) (test byyf=939) 22.7 seconds 11.7-14.7 INR (BEAKER) (test kiym=508) 2.0 <=5.9 RECOMMENDED COUMADIN/WARFARIN INR THERAPY RANGESSTANDARD DOSE: 2.0 - 3.0 Includes: PROPHYLAXIS forvenous thrombosis, systemic embolization; TREATMENT for venous thrombosis and/or pulmonary embolus.HIGH RISK: Target INR is 2.5-3.5 for patients with mechanical heart valves.VITAMIN B12 AND [id number] 16:39 :00 Test Item Value Reference Range Comments VITAMIN B12 (BEAKER) (test qtkd=725) 829 pg/mL 213-816 FOLATE (BEAKER) (test azqz=481) 18.9 ng/mL >=7.0 CALCIUM, [id number] 07:14:00 Test Item Value Reference Range Comments CALCIUM IONIZED (BEAKER) (test pehu=462) 1.08 mmol/L 1.12-1.27 PH, BLOOD (BEAKER) (test hmqx=2193) 7.41 COMPREHENSIVE METABOLIC [id number] 07:00:00 Test Item Value Reference Range Comments TOTAL PROTEIN (BEAKER) 5.0 gm/dL 6.0-8.3 (test xftc=893) ALBUMIN (BEAKER) (test 3.1 g/dL 3.5-5.0 xpmx=9888) ALKALINE PHOSPHATASE 65 U/L 40-150 (BEAKER) (test desn=622) BILIRUBIN TOTAL (BEAKER) 2.5 mg/dL 0.2-1.2 (test bcbw=161) SODIUM (BEAKER) (test 127 meq/L 136-145 loos=514) POTASSIUM (BEAKER) (test 4.7 meq/L 3.5-5.1 mwft=119) CHLORIDE (BEAKER) (test 99 meq/L 98-107 cclg=839) CO2 (BEAKER) (test 23 meq/L 22-29 bjcj=295) BLOOD UREA NITROGEN 21 mg/dL 7-21 (BEAKER) (test uobe=526) CREATININE (BEAKER) (test 1.13 mg/dL 0.57-1.25 cxpo=340) GLUCOSE RANDOM (BEAKER) 92 mg/dL 70-105 (test pugy=958) CALCIUM (BEAKER) (test 8.9 mg/dL 8.4-10.2 djiu=438) AST (SGOT) (BEAKER) (test 18 U/L 5-34 wvhc=443) ALT (SGPT) (BEAKER) (test 8 U/L 6-55 khfx=311) EGFR (BEAKER) (test 68 mL/min/1.73 sq m ESTIMATED GFR IS NOT qzwd=5789) ACCURATE CREATININE CLEARANCE IN PREDICTING GLOMERULAR FILTRATION RATE. ESTIMATED GFR IS NOT APPLICABLE FOR DIALYSIS PATIENTS. [id number] 06:37:00 Test Item Value Reference Range Comments PHOSPHORUS (BEAKER) (test ohhs=399) 3.2 mg/dL 2.3-4.7 [id number] 06:37:00 Test Item Value Reference Range Comments MAGNESIUM (BEAKER) (test cxdc=178) 1.9 mg/dL 1.6-2.6 CBC (HEMOGRAM ONLY)2018-01-03 06:25:00 Test Item Value Reference Range Comments WHITE BLOOD CELL COUNT (BEAKER) (test cxkt=276) 3.1 K/ L 3.5-10.5 RED BLOOD CELL COUNT (BEAKER) (test ofec=226) 2.31 M/ L 4.63-6.08 HEMOGLOBIN (BEAKER) (test yqlw=477) 7.4 GM/DL 13.7-17.5 HEMATOCRIT (BEAKER) (test gxpo=780) 21.6 % 40.1-51.0 MEAN CORPUSCULAR VOLUME (BEAKER) (test ovoz=127) 93.5 fL 79.0-92.2 MEAN CORPUSCULAR HEMOGLOBIN (BEAKER) (test 32.0 pg 25.7-32.2 aubg=058) MEAN CORPUSCULAR HEMOGLOBIN CONC (BEAKER) (test 34.3 GM/DL 32.3-36.5 hoaw=292) RED CELL DISTRIBUTION WIDTH (BEAKER) (test 17.4 % 11.6-14.4 ijvo=581) PLATELET COUNT (BEAKER) (test dngu=088) 50 K/CU MM 150-450 MEAN PLATELET VOLUME (BEAKER) (test plar=475) 10.5 fL 9.4-12.4 NUCLEATED RED BLOOD CELLS (BEAKER) (test 0 /100 WBC 0-0 kmai=916) PROTHROMBIN [id number] 06:09:00 Test Item Value Reference Range Comments PROTIME (BEAKER) (test ssob=590) 22.2 seconds 11.7-14.7 INR (BEAKER) (test xslq=829) 2.0 <=5.9 RECOMMENDED COUMADIN/WARFARIN INR THERAPY RANGESSTANDARD DOSE: 2.0 - 3.0 Includes: PROPHYLAXIS forvenous thrombosis, systemic embolization; TREATMENT for venous thrombosis and/or pulmonary embolus.HIGH RISK: Target INR is 2.5-3.5 for patients with mechanical heart valves.[id number] 07:54:00 Test Item Value Reference Range Comments PHOSPHORUS (BEAKER) (test wcca=475) 3.2 mg/dL 2.3-4.7 [id number] 07:54:00 Test Item Value Reference Range Comments MAGNESIUM (BEAKER) (test hwfu=992) 1.4 mg/dL 1.6-2.6 COMPREHENSIVE METABOLIC [id number] 07:54:00 Test Item Value Reference Range Comments TOTAL PROTEIN (BEAKER) 5.3 gm/dL 6.0-8.3 (test bunm=962) ALBUMIN (BEAKER) (test 3.4 g/dL 3.5-5.0 gfna=8751) ALKALINE PHOSPHATASE 55 U/L 40-150 (BEAKER) (test tfun=178) BILIRUBIN TOTAL (BEAKER) 3.9 mg/dL 0.2-1.2 (test vafb=969) SODIUM (BEAKER) (test 131 meq/L 136-145 ayxi=717) POTASSIUM (BEAKER) (test 4.3 meq/L 3.5-5.1 qkkh=418) CHLORIDE (BEAKER) (test 101 meq/L 98-107 kwgu=482) CO2 (BEAKER) (test 23 meq/L 22-29 qtlh=930) BLOOD UREA NITROGEN 19 mg/dL 7-21 (BEAKER) (test juar=132) CREATININE (BEAKER) (test 0.97 mg/dL 0.57-1.25 lnue=536) GLUCOSE RANDOM (BEAKER) 80 mg/dL 70-105 (test gexq=113) CALCIUM (BEAKER) (test 9.4 mg/dL 8.4-10.2 oqqj=622) AST (SGOT) (BEAKER) (test 17 U/L 5-34 eyiw=240) ALT (SGPT) (BEAKER) (test 8 U/L 6-55 eylq=865) EGFR (BEAKER) (test 81 mL/min/1.73 sq m ESTIMATED GFR IS NOT aazp=4417) ACCURATE CREATININE CLEARANCE IN PREDICTING GLOMERULAR FILTRATION RATE. ESTIMATED GFR IS NOT APPLICABLE FOR DIALYSIS PATIENTS. Specimen slightly ictericCBC W/PLT COUNT & AUTO [id number] 07:14 :00 Test Item Value Reference Range Comments WHITE BLOOD CELL COUNT (BEAKER) (test akue=173) 2.9 K/ L 3.5-10.5 RED BLOOD CELL COUNT (BEAKER) (test usug=221) 2.55 M/ L 4.63-6.08 HEMOGLOBIN (BEAKER) (test ojxw=651) 8.1 GM/DL 13.7-17.5 HEMATOCRIT (BEAKER) (test funj=575) 23.7 % 40.1-51.0 MEAN CORPUSCULAR VOLUME (BEAKER) (test rjpg=747) 92.9 fL 79.0-92.2 MEAN CORPUSCULAR HEMOGLOBIN (BEAKER) (test 31.8 pg 25.7-32.2 bvyc=627) MEAN CORPUSCULAR HEMOGLOBIN CONC (BEAKER) (test 34.2 GM/DL 32.3-36.5 nxmv=118) RED CELL DISTRIBUTION WIDTH (BEAKER) (test 17.5 % 11.6-14.4 pxyr=901) PLATELET COUNT (BEAKER) (test pgih=269) 50 K/CU MM 150-450 MEAN PLATELET VOLUME (BEAKER) (test mgdv=765) 9.5 fL 9.4-12.4 NUCLEATED RED BLOOD CELLS (BEAKER) (test 0 /100 WBC 0-0 zmzz=351) NEUTROPHILS RELATIVE PERCENT (BEAKER) (test 57 % sfgn=956) LYMPHOCYTES RELATIVE PERCENT (BEAKER) (test 17 % eemd=166) MONOCYTES RELATIVE PERCENT (BEAKER) (test 18 % daud=032) EOSINOPHILS RELATIVE PERCENT (BEAKER) (test 7 % msfm=298) BASOPHILS RELATIVE PERCENT (BEAKER) (test 0 % hjek=630) NEUTROPHILS ABSOLUTE COUNT (BEAKER) (test 1.65 K/ L 1.78-5.38 pwim=638) LYMPHOCYTES ABSOLUTE COUNT (BEAKER) (test 0.49 K/ L 1.32-3.57 wcaa=854) MONOCYTES ABSOLUTE COUNT (BEAKER) (test srpp=857) 0.51 K/ L 0.30-0.82 EOSINOPHILS ABSOLUTE COUNT (BEAKER) (test 0.20 K/ L 0.04-0.54 erfi=729) BASOPHILS ABSOLUTE COUNT (BEAKER) (test lkzv=926) 0.01 K/ L 0.01-0.08 IMMATURE GRANULOCYTES-RELATIVE PERCENT (BEAKER) 1 % 0-1 (test awxc=3007) (MANUAL DIFFERENTIAL)2018-01-02 07:14:00 Test Item Value Reference Range Comments TOTAL COUNTED (BEAKER) (test gpmn=3549) CALCIUM, [id number] 07:04:00 Test Item Value Reference Range Comments CALCIUM IONIZED (BEAKER) (test daca=707) 1.07 mmol/L 1.12-1.27 PH, BLOOD (BEAKER) (test ldgu=2647) 7.49 PROTHROMBIN [id number] 06:42:00 Test Item Value Reference Range Comments PROTIME (BEAKER) (test webh=770) 24.6 seconds 11.7-14.7 INR (BEAKER) (test itit=106) 2.2 <=5.9 RECOMMENDED COUMADIN/WARFARIN INR THERAPY RANGESSTANDARD DOSE: 2.0 - 3.0 Includes: PROPHYLAXIS forvenous thrombosis, systemic embolization; TREATMENT for venous thrombosis and/or pulmonary embolus.HIGH RISK: Target INR is 2.5-3.5 for patients with mechanical heart valves.CYTOMEGALOVIRUS ANTIBODY, [id number] 14:58:00 Test Item Value Reference Range Comments CYTOMEGALOVIRUS IGG ANTIBODY (BEAKER) (test Positive ugdi=477) CYTOMEGALOVIRUS ANTIBODY, [id number] 14:58:00 Test Item Value Reference Range Comments CYTOMEGALOVIRUS IGM ANTIBODY (BEAKER) (test Negative gybj=625) EBV-VCA ANTIBODY, [id number] 14:58:00 Test Item Value Reference Range Comments MARCELLUS-DAVIS VCA IGG (BEAKER) (test awbk=608) Positive EBV-VCA ANTIBODY, [id number] 14:58:00 Test Item Value Reference Range Comments MARCELLUS-DAVIS VCA IGM (BEAKER) (test svco=783) Negative BODY FLUID CELL COUNT WITH [id number] 14:27:00 Test Item Value Reference Range Comments APPEARANCE FLUID (BEAKER) (test psqr=843) Slightly Hazy Clear COLOR FLUID (BEAKER) (test mffn=172) Yellow Colorless, Straw RBC FLUID (BEAKER) (test ojxl=559) 378 /cu mm <=1 ADJUSTED WBC FLUID (BEAKER) (test rrin=0658) 84 /cu mm <=5 LINING CELLS (BEAKER) (test fygp=1458) 17 /cu mm <=1 NEUTROPHILS FLUID (BEAKER) (test bzuq=7507) 1 % LYMPHS FLUID (BEAKER) (test zycp=946) 14 % MONO/MACROPHAGE FLUID (BEAKER) (test 85 % ywld=312) EOSINOPHILS FLUID (BEAKER) (test vadx=556) 0 % BASO FLUID (BEAKER) (test vhvk=696) 0 % CONTAINER BODY FLUID (BEAKER) (test EDTA Tube kdir=1038) U/S, [id number] 11:17:00Reason for exam:->ascitesFINAL REPORT Ultrasound guided paracentesis, 01/01/2018. Clinical History:Ascites. Sedation: None. Senior Engineering Manager: Paul Butler MD Armature Winder Repair Helper: None. Estimated Blood Loss: < 1 cc. [...] was achieved with 1% lidocaine, a 5 [place] one-step catheter was advanced into the peritoneal cavity under ultrasound guidance. After completion of drainage, the catheter was removed. There was no evidence ofcomplication. Patient Disposition: The patient was transferred to the inpatient unit from the ultrasound department after the paracentesis, in good condition. Impression:Successful ultrasound guided paracentesis. Signed: Paul Butler MDReport Verified Date/Time: 01/01/2018 11:17:26 Reading Location: [address] Ultrasound Reading Room CBC W/PLT COUNT & AUTO [id number] 08:55:00 Test Item Value Reference Range Comments WHITE BLOOD CELL COUNT (BEAKER) (test gtlr=626) 2.6 K/ L 3.5-10.5 RED BLOOD CELL COUNT (BEAKER) (test rrqz=501) 2.17 M/ L 4.63-6.08 HEMOGLOBIN (BEAKER) (test ntlb=743) 6.9 GM/DL 13.7-17.5 HEMATOCRIT (BEAKER) (test tlwo=797) 20.6 % 40.1-51.0 MEAN CORPUSCULAR VOLUME (BEAKER) (test zjxm=730) 94.9 fL 79.0-92.2 MEAN CORPUSCULAR HEMOGLOBIN (BEAKER) (test 31.8 pg 25.7-32.2 tzix=699) MEAN CORPUSCULAR HEMOGLOBIN CONC (BEAKER) (test 33.5 GM/DL 32.3-36.5 zbyk=897) RED CELL DISTRIBUTION WIDTH (BEAKER) (test 17.0 % 11.6-14.4 szgj=069) PLATELET COUNT (BEAKER) (test zmwq=144) 43 K/CU MM 150-450 MEAN PLATELET VOLUME (BEAKER) (test bttj=894) 9.3 fL 9.4-12.4 NUCLEATED RED BLOOD CELLS (BEAKER) (test 0 /100 WBC 0-0 phmm=373) NEUTROPHILS RELATIVE PERCENT (BEAKER) (test 62 % zrty=046) LYMPHOCYTES RELATIVE PERCENT (BEAKER) (test 13 % vnyo=626) MONOCYTES RELATIVE PERCENT (BEAKER) (test 18 % ypkc=124) EOSINOPHILS RELATIVE PERCENT (BEAKER) (test 6 % rqsx=536) BASOPHILS RELATIVE PERCENT (BEAKER) (test 0 % hone=408) NEUTROPHILS ABSOLUTE COUNT (BEAKER) (test 1.58 K/ L 1.78-5.38 cjme=215) LYMPHOCYTES ABSOLUTE COUNT (BEAKER) (test 0.33 K/ L 1.32-3.57 gaxj=431) MONOCYTES ABSOLUTE COUNT (BEAKER) (test yaoq=129) 0.46 K/ L 0.30-0.82 EOSINOPHILS ABSOLUTE COUNT (BEAKER) (test 0.15 K/ L 0.04-0.54 fywq=429) BASOPHILS ABSOLUTE COUNT (BEAKER) (test necg=090) 0.01 K/ L 0.01-0.08 IMMATURE GRANULOCYTES-RELATIVE PERCENT (BEAKER) 1 % 0-1 (test grjx=5887) (MANUAL DIFFERENTIAL)2018-01-01 08:55:00 Test Item Value Reference Range Comments TOTAL COUNTED (BEAKER) (test lguz=4258) CALCIUM, [id number] 07:43:00 Test Item Value Reference Range Comments CALCIUM IONIZED (BEAKER) (test dfki=003) 1.14 mmol/L 1.12-1.27 PH, BLOOD (BEAKER) (test sgyy=3040) 7.52 [id number] 06:11:00 Test Item Value Reference Range Comments PHOSPHORUS (BEAKER) (test erre=336) 2.5 mg/dL 2.3-4.7 [id number] 06:11:00 Test Item Value Reference Range Comments MAGNESIUM (BEAKER) (test oaje=076) 1.7 mg/dL 1.6-2.6 COMPREHENSIVE METABOLIC [id number] 06:11:00 Test Item Value Reference Range Comments TOTAL PROTEIN (BEAKER) 5.6 gm/dL 6.0-8.3 (test vkax=280) ALBUMIN (BEAKER) (test 3.6 g/dL 3.5-5.0 tqkd=4061) ALKALINE PHOSPHATASE 68 U/L 40-150 (BEAKER) (test qvhy=848) BILIRUBIN TOTAL (BEAKER) 2.7 mg/dL 0.2-1.2 (test ithx=685) SODIUM (BEAKER) (test 132 meq/L 136-145 ipqk=997) POTASSIUM (BEAKER) (test 4.9 meq/L 3.5-5.1 yldw=333) CHLORIDE (BEAKER) (test 102 meq/L 98-107 mudu=332) CO2 (BEAKER) (test 24 meq/L 22-29 htdx=194) BLOOD UREA NITROGEN 20 mg/dL 7-21 (BEAKER) (test fuwm=020) CREATININE (BEAKER) (test 1.17 mg/dL 0.57-1.25 lkrl=899) GLUCOSE RANDOM (BEAKER) 92 mg/dL 70-105 (test gwdt=119) CALCIUM (BEAKER) (test 9.7 mg/dL 8.4-10.2 pwlq=185) AST (SGOT) (BEAKER) (test 16 U/L 5-34 lfvi=568) ALT (SGPT) (BEAKER) (test 8 U/L 6-55 ries=983) EGFR (BEAKER) (test 65 mL/min/1.73 sq m ESTIMATED GFR IS NOT cffo=1966) ACCURATE CREATININE CLEARANCE IN PREDICTING GLOMERULAR FILTRATION RATE. ESTIMATED GFR IS NOT APPLICABLE FOR DIALYSIS PATIENTS. Specimen slightly ictericPROTHROMBIN [id number] 06:00:00 Test Item Value Reference Range Comments PROTIME (TUNG) (test vctl=580) 24.0 seconds 11.7-14.7 INR (TUNG) (test jwfb=096) 2.2 <=5.9 RECOMMENDED COUMADIN/WARFARIN INR THERAPY RANGESSTANDARD DOSE: 2.0 - 3.0 Includes: PROPHYLAXIS forvenous thrombosis, systemic embolization; TREATMENT for venous thrombosis and/or pulmonary embolus.HIGH RISK: Target INR is 2.5-3.5 for patients with mechanical heart valves.CT, CHEST, WITHOUT [id number] 19:24:00FINAL REPORT HISTORY: Lung nodule, >=1cm COMPARISON [...] MDReport Verified Date/Time: 12/31/2017 19:24:12 Reading Location: [facility] C013W Consult Reading Room 07: 24 PMPERIPHERAL BLOOD SMEAR - HOLD [id number] 19:18:00 Test Item Value Reference Range Comments PERIPHERAL SMEAR SAVE (BEAKER) prepared and saved smear, (test zpeq=1588) 12/31/17 RETICULOCYTE [id number] 19:14:00 Test Item Value Reference Range Comments RETICULOCYTE COUNT PCT (BEAKER) (test ufjj=803) 3.5 % 0.5-1.8 LACTATE DEHYDROGENASE (LDH)2017-12-31 17:47:00 Test Item Value Reference Range Comments LACTATE DEHYDROGENASE (BEAKER) (test resk=716) 112 U/L 125-220 BLOOD GAS, [id number] 17:27:00 Test Item Value Reference Range Comments PH ARTERIAL (BEAKER) (test dchw=947) 7.45 7.35-7.45 PCO2 ARTERIAL (BEAKER) (test ucqq=281) 36 mmHg 35-45 PO2 ARTERIAL (BEAKER) (test gafb=464) 76 mmHg 80-90 O2 SATURATION ARTERIAL (BEAKER) (test fyrg=138) 96.1 % 96.0-97.0 HCO3 ARTERIAL (BEAKER) (test rjvl=793) 24 mmol/L 21-29 BASE EXCESS ARTERIAL (BEAKER) (test cdjs=433) 0.2 mmol/L -2.0-3.0 PATIENT TEMPERATURE (BEAKER) (test jpdv=8187) 36.4 C FIO2 (BEAKER) (test nxbi=7697) 21.0 % MYOCARD IMAGING, MULTI, PHARM, [id number] 15:12:00FINAL REPORT PROCEDURE: Rest/Stress MYOCARDIAL PERFUSION SPECT with regadenoson\\XA9\\ CPT CODE: 26571 INDICATION: Liver transplant evaluation HISTORY: Cardiac risk [...] Normal extracardiac tracer distribution. 6. No previous [facility] study for comparison. NONINVASIVE RISK STRATIFICATION: The above findings are considered low risk (<1% annual mortality rate) based on the following criterion:- Normal orsmall myocardial perfusion defect at rest or with stress(JACC. 2012;59(9):857-81.) Signed: Quinten Napier Verified Date/Time: 12/31/2017 15:12:03 Reading Location: [address] P[address] Reading Room BILIRUBIN, [id number] 14:10:00 Test Item Value Reference Range Comments BILIRUBIN DIRECT (BEAKER) (test esid=456) 1.6 mg/dL 0.1-0.5 HEMOGLOBIN AND [id number] 13:22:00 Test Item Value Reference Range Comments HEMOGLOBIN (BEAKER) (test vwgq=141) 7.3 GM/DL 13.7-17.5 HEMATOCRIT (BEAKER) (test usil=623) 21.9 % 40.1-51.0 CBC W/PLT COUNT & AUTO [id number] 11:06:00 Test Item Value Reference Range Comments WHITE BLOOD CELL COUNT (BEAKER) (test hipt=863) 2.2 K/ L 3.5-10.5 RED BLOOD CELL COUNT (BEAKER) (test cqaq=589) 2.07 M/ L 4.63-6.08 HEMOGLOBIN (BEAKER) (test fftj=618) 6.8 GM/DL 13.7-17.5 HEMATOCRIT (BEAKER) (test ftqp=056) 19.6 % 40.1-51.0 MEAN CORPUSCULAR VOLUME (BEAKER) (test mbza=034) 94.7 fL 79.0-92.2 MEAN CORPUSCULAR HEMOGLOBIN (BEAKER) (test 32.9 pg 25.7-32.2 vjkh=968) MEAN CORPUSCULAR HEMOGLOBIN CONC (BEAKER) (test 34.7 GM/DL 32.3-36.5 udii=448) RED CELL DISTRIBUTION WIDTH (BEAKER) (test 16.9 % 11.6-14.4 puhh=625) PLATELET COUNT (BEAKER) (test flsg=477) 47 K/CU MM 150-450 MEAN PLATELET VOLUME (BEAKER) (test ikms=405) 9.7 fL 9.4-12.4 NUCLEATED RED BLOOD CELLS (BEAKER) (test 0 /100 WBC 0-0 dptb=642) NEUTROPHILS RELATIVE PERCENT (BEAKER) (test 54 % tfwg=779) LYMPHOCYTES RELATIVE PERCENT (BEAKER) (test 17 % rnmj=874) MONOCYTES RELATIVE PERCENT (BEAKER) (test 21 % qvjt=593) EOSINOPHILS RELATIVE PERCENT (BEAKER) (test 8 % wktb=569) BASOPHILS RELATIVE PERCENT (BEAKER) (test 1 % mlto=692) NEUTROPHILS ABSOLUTE COUNT (BEAKER) (test 1.17 K/ L 1.78-5.38 dhvm=227) LYMPHOCYTES ABSOLUTE COUNT (BEAKER) (test 0.36 K/ L 1.32-3.57 hpey=826) MONOCYTES ABSOLUTE COUNT (BEAKER) (test zecy=123) 0.45 K/ L 0.30-0.82 EOSINOPHILS ABSOLUTE COUNT (BEAKER) (test 0.17 K/ L 0.04-0.54 uhbu=500) BASOPHILS ABSOLUTE COUNT (BEAKER) (test dyir=848) 0.01 K/ L 0.01-0.08 IMMATURE GRANULOCYTES-RELATIVE PERCENT (BEAKER) 1 % 0-1 (test clwm=6868) (MANUAL DIFFERENTIAL)2017-12-31 11:06:00 Test Item Value Reference Range Comments TOTAL COUNTED (BEAKER) (test ynzp=7940) [id number] 08:37:00 Test Item Value Reference Range Comments PROTIME (BEAKER) (test uiye=363) 24.0 seconds 11.7-14.7 INR (BEAKER) (test kuab=105) 2.2 <=5.9 PARTIAL THROMBOPLASTIN TIME (BEAKER) (test 55.2 seconds 22.5-36.0 aewa=406) RECOMMENDED COUMADIN/WARFARIN INR THERAPY RANGESSTANDARD DOSE: 2.0 - 3.0 Includes: PROPHYLAXIS forvenous thrombosis, systemic embolization; TREATMENT for venous thrombosis and/or pulmonary embolus.HIGH RISK: Target INR is 2.5-3.5 for patients with mechanical heart valves.COMPREHENSIVE METABOLIC [id number] 06:37:00 Test Item Value Reference Range Comments TOTAL PROTEIN (BEAKER) 5.7 gm/dL 6.0-8.3 (test tzat=917) ALBUMIN (BEAKER) (test 3.7 g/dL 3.5-5.0 zknf=8907) ALKALINE PHOSPHATASE 70 U/L 40-150 (BEAKER) (test yxud=081) BILIRUBIN TOTAL (BEAKER) 2.6 mg/dL 0.2-1.2 (test xekp=845) SODIUM (BEAKER) (test 130 meq/L 136-145 gzcz=013) POTASSIUM (BEAKER) (test 5.2 meq/L 3.5-5.1 eukj=011) CHLORIDE (BEAKER) (test 100 meq/L 98-107 nxje=456) CO2 (BEAKER) (test 25 meq/L 22-29 tabr=082) BLOOD UREA NITROGEN 20 mg/dL 7-21 (BEAKER) (test lkig=404) CREATININE (BEAKER) (test 1.08 mg/dL 0.57-1.25 mphk=028) GLUCOSE RANDOM (BEAKER) 91 mg/dL 70-105 (test tkpk=317) CALCIUM (BEAKER) (test 9.6 mg/dL 8.4-10.2 vfac=063) AST (SGOT) (BEAKER) (test 16 U/L 5-34 wtyr=825) ALT (SGPT) (BEAKER) (test 6 U/L 6-55 rjfo=244) EGFR (BEAKER) (test 72 mL/min/1.73 sq m ESTIMATED GFR IS NOT mijd=5220) ACCURATE CREATININE CLEARANCE IN PREDICTING GLOMERULAR FILTRATION RATE. ESTIMATED GFR IS NOT APPLICABLE FOR DIALYSIS PATIENTS. Specimen slightly [id number] 06:01:00 Test Item Value Reference Range Comments RPR SCREEN (BEAKER) (test fifx=900) Nonreactive Nonreactive CRYPTOCOCCAL [id number] 05:59:00 Test Item Value Reference Range Comments CRYPTOCOCCAL ANTIGEN, SERUM (BEAKER) (test Negative Negative, Interference gvnp=1075) RAD, MANDIBLE, MIN 4 [id number] 01:37:00Reason for exam:->liver transplant evalShould this be [...] scattered sclerotic calvarial foci. Signed: Slick Barcenas Verified Date/Time: 12/31/2017 01:37:57 Reading Location: [address] Reading Room Electronically signed by: SLICK BARCENAS M.D. on 04/2018 01:37 AMRAD, CHEST, 2 [id number] 23:32:00Reason for exam:-> liver transplant evalShould this [...] MDReport Verified Date/Time: 12/30/2017 23:32:31 Reading Location: [address] Reading Room HEMOGLOBIN [id number] 22:54:00 Test Item Value Reference Range Comments HEMOGLOBIN A1C (BEAKER) (test sllr=313) 4.1 % 4.3-6.1 HEPATITIS B SURFACE [id number] 16:31:00 Test Item Value Reference Range Comments HEPATITIS B SURFACE ANTIBODY (BEAKER) (test < mIU/mL <8.0 phla=772) HEPATITIS B SURFACE [id number] 16:29:00 Test Item Value Reference Range Comments HEPATITIS B SURFACE ANTIGEN (2) (BEAKER) (test Nonreactive Nonreactive jnxr=3397) HEPATITIS B CORE ANTIBODY, [id number] 16:29:00 Test Item Value Reference Range Comments HEPATITIS B CORE IGM ANTIBODY (BEAKER) (test Nonreactive Nonreactive doiq=628) HEPATITIS A ANTIBODY, [id number] 16:29:00 Test Item Value Reference Range Comments HEPATITIS A IGM ANTIBODY (BEAKER) (test Nonreactive Nonreactive fadb=054) HEPATITIS B CORE ANTIBODY, [id number] 16:29:00 Test Item Value Reference Range Comments HEPATITIS B CORE TOTAL ANTIBODY (BEAKER) (test Nonreactive Nonreactive ebdk=362) [id number] 16:26:00 Test Item Value Reference Range Comments T4 TOTAL (BEAKER) (test aebd=210) 3.5 ug/dL 4.9-11.7 [id number] 16:26:00 Test Item Value Reference Range Comments T3 TOTAL (BEAKER) (test ocjf=898) 42 ng/dL 48-159 [id number] 16:24:00 Test Item Value Reference Range Comments FERRITIN (BEAKER) (test larg=864) 1460 ng/mL 5-275 VITAMIN D, [id number] 16:24:00 Test Item Value Reference Range Comments VITAMIN D 25-OH (BEAKER) (test cdrr=2088) 6.9 ng/mL 6.6-49.9 Effective 08/06/2017: Reference Range ChangeNew: 6.6-49.9 ng/mL Previous: 13.0 -47.8 ng/mLRecommended Vitamin D Target Range: 30.0-40.0 ng/[id number] 16: 24:00 Test Item Value Reference Range Comments THYROID STIMULATING HORMONE (BEAKER) (test 1.55 uIU/mL 0.35-4.94 irip=235) CARCINOEMBRYONIC ANTIGEN (CEA)2017-12-30 16:24:00 Test Item Value Reference Range Comments CARCINOEMBRYONIC ANTIGEN (BEAKER) (test flqz=919) 3.0 ng/mL 0.0-5.0 [id number] 16:23:00 Test Item Value Reference Range Comments PROSTATE SPECIFIC ANTIGEN (BEAKER) (test cpuv=396) 0.1 ng/mL 0.0-4.0 HIV-1 ANTIGEN WITH HIV-1/2 [id number] 16:23:00 Test Item Value Reference Range Comments HIV-1 ANTIGEN WITH HIV 1\\T\\2 ANTIBODY (2) Nonreactive Nonreactive (BEAKER) (test misd=5051) HEPATITIS C [id number] 16:23:00 Test Item Value Reference Range Comments HEPATITIS C ANTIBODY (BEAKER) (test ikqj=490) Nonreactive Nonreactive LIPID [id number] 16:06:00 Test Item Value Reference Range Comments TRIGLYCERIDES (BEAKER) (test jxxh=999) 38 mg/dL CHOLESTEROL (BEAKER) (test gsjm=791) 51 mg/dL HDL CHOLESTEROL (BEAKER) (test vgtg=503) 10 mg/dL LDL CHOLESTEROL CALCULATED (BEAKER) (test gmha=831) 33 mg/dL Triglyceride Reference Range: Low Risk [...] Value Reference Range Comments IRON (BEAKER) (test fcsn=488) 90 ug/dL 40-160 TOTAL IRON BINDING CAPACITY (BEAKER) (test 85 ug/dL 250-450 pqzi=293) IRON % SATURATION (2) (BEAKER) (test sodv=4122) 106 % 20-55 [id number] 16:04:00 Test Item Value Reference Range Comments TRANSFERRIN (BEAKER) (test lvnt=125) 65 mg/dL 174-382 Specimen slightly ictericURIC [id number] 16:02:00 Test Item Value Reference Range Comments URIC ACID (BEAKER) (test qagd=011) 8.5 mg/dL 2.6-7.2 Specimen slightly [id number] 15:50:00 Test Item Value Reference Range Comments FIBRINOGEN LEVEL (BEAKER) (test trne=674) 161 mg/dl 225-434 BODY FLUID CULTURE + GRAM [id number] 11:45:00 Test Item Value Reference Range Comments CULTURE (BEAKER) (test phph=5003) No growth GRAM STAIN RESULT (BEAKER) (test No WBCs tein=4335) GRAM STAIN RESULT (BEAKER) (test No organisms seen awpv=93082) CBC W/PLT COUNT & AUTO [id number] 08:05:00 Test Item Value Reference Range Comments WHITE BLOOD CELL COUNT (BEAKER) (test qtdp=496) 2.0 K/ L 3.5-10.5 RED BLOOD CELL COUNT (BEAKER) (test wfxo=163) 2.20 M/ L 4.63-6.08 HEMOGLOBIN (BEAKER) (test renf=501) 7.1 GM/DL 13.7-17.5 HEMATOCRIT (BEAKER) (test amuv=495) 20.8 % 40.1-51.0 MEAN CORPUSCULAR VOLUME (BEAKER) (test grnz=938) 94.5 fL 79.0-92.2 MEAN CORPUSCULAR HEMOGLOBIN (BEAKER) (test 32.3 pg 25.7-32.2 rcuh=978) MEAN CORPUSCULAR HEMOGLOBIN CONC (BEAKER) (test 34.1 GM/DL 32.3-36.5 igna=706) RED CELL DISTRIBUTION WIDTH (BEAKER) (test 17.0 % 11.6-14.4 szht=057) PLATELET COUNT (BEAKER) (test irbc=277) 52 K/CU MM 150-450 MEAN PLATELET VOLUME (BEAKER) (test lcts=907) 10.7 fL 9.4-12.4 NUCLEATED RED BLOOD CELLS (BEAKER) (test 0 /100 WBC 0-0 dvnr=545) NEUTROPHILS RELATIVE PERCENT (BEAKER) (test 55 % jhzt=164) LYMPHOCYTES RELATIVE PERCENT (BEAKER) (test 16 % fbxq=893) MONOCYTES RELATIVE PERCENT (BEAKER) (test 20 % gsxu=671) EOSINOPHILS RELATIVE PERCENT (BEAKER) (test 8 % qmpn=031) BASOPHILS RELATIVE PERCENT (BEAKER) (test 1 % xwpc=447) NEUTROPHILS ABSOLUTE COUNT (BEAKER) (test 1.10 K/ L 1.78-5.38 libj=663) LYMPHOCYTES ABSOLUTE COUNT (BEAKER) (test 0.32 K/ L 1.32-3.57 ookg=901) MONOCYTES ABSOLUTE COUNT (BEAKER) (test opha=363) 0.40 K/ L 0.30-0.82 EOSINOPHILS ABSOLUTE COUNT (BEAKER) (test 0.16 K/ L 0.04-0.54 ledj=000) BASOPHILS ABSOLUTE COUNT (BEAKER) (test krkx=291) 0.01 K/ L 0.01-0.08 IMMATURE GRANULOCYTES-RELATIVE PERCENT (BEAKER) 1 % 0-1 (test jweg=2482) (MANUAL DIFFERENTIAL)2017-12-30 08:05:00 Test Item Value Reference Range Comments TOTAL COUNTED (BEAKER) (test jfpz=6062) URINALYSIS W/ [id number] 06:46:00 Test Item Value Reference Range Comments COLOR (BEAKER) (test ujda=705) Yellow CLARITY (BEAKER) (test hgtb=516) Clear SPECIFIC GRAVITY UA (BEAKER) (test bkkn=843) 1.008 1.001-1.035 PH UA (BEAKER) (test puwa=802) 6.0 5.0-8.0 PROTEIN UA (BEAKER) (test immm=174) Negative Negative GLUCOSE UA (BEAKER) (test ycil=271) Negative Negative KETONES UA (BEAKER) (test exdq=991) Negative Negative BILIRUBIN UA (BEAKER) (test ueyl=279) Negative Negative BLOOD UA (BEAKER) (test kgkz=477) Negative Negative NITRITE UA (BEAKER) (test loup=085) Negative Negative LEUKOCYTE ESTERASE UA (BEAKER) (test bdks=258) Negative Negative UROBILINOGEN UA (BEAKER) (test gfcs=757) 0.2 mg/dL 0.2-1.0 RBC UA (BEAKER) (test weqg=489) 0 /HPF WBC UA (BEAKER) (test oigz=340) 0 /HPF HYALINE CASTS (BEAKER) (test oqxh=025) 5 /LPF SOURCE(BEAKER) (test ueva=6937) Urine, Voided SODIUM, RANDOM [id number] 06:35:00 Test Item Value Reference Range Comments SODIUM URINE (BEAKER) (test lbvi=954) < meq/L Reference Range: No NormalsPROTEIN, RANDOM [id number] 06:35:00 Test Item Value Reference Range Comments PROTEIN, URINE (BEAKER) (test xltn=1458) < mg/dL 0-14 [id number] 06:21:00 Test Item Value Reference Range Comments MAGNESIUM (BEAKER) (test 1.8 mg/dL 1.6-2.6 Specimen slightly hemolyzed bdmn=447) [id number] 06:21:00 Test Item Value Reference Range Comments PHOSPHORUS (BEAKER) (test 2.9 mg/dL 2.3-4.7 Specimen slightly hemolyzed rten=631) COMPREHENSIVE METABOLIC [id number] 06:21:00 Test Item Value Reference Range Comments TOTAL PROTEIN (BEAKER) 5.6 gm/dL 6.0-8.3 Specimen slightly (test tepi=857) hemolyzed ALBUMIN (BEAKER) (test 3.5 g/dL 3.5-5.0 Specimen slightly sdrr=0802) hemolyzed ALKALINE PHOSPHATASE 75 U/L 40-150 (BEAKER) (test ygik=187) BILIRUBIN TOTAL (BEAKER) 3.0 mg/dL 0.2-1.2 Specimen slightly (test cggk=132) hemolyzed SODIUM (BEAKER) (test 127 meq/L 136-145 mywf=277) POTASSIUM (BEAKER) (test 5.2 meq/L 3.5-5.1 Specimen slightly rull=068) hemolyzed CHLORIDE (BEAKER) (test 97 meq/L 98-107 tfox=542) CO2 (BEAKER) (test 24 meq/L 22-29 bivm=034) BLOOD UREA NITROGEN 22 mg/dL 7-21 (BEAKER) (test gmhr=596) CREATININE (BEAKER) (test 1.11 mg/dL 0.57-1.25 Specimen slightly wtyw=744) hemolyzed GLUCOSE RANDOM (BEAKER) 94 mg/dL 70-105 (test rimy=197) CALCIUM (BEAKER) (test 9.4 mg/dL 8.4-10.2 dfgd=462) AST (SGOT) (BEAKER) (test 22 U/L 5-34 Specimen slightly mjfb=888) hemolyzed ALT (SGPT) (BEAKER) (test 7 U/L 6-55 Specimen slightly qdtl=639) hemolyzed EGFR (BEAKER) (test 70 mL/min/1.73 sq m ESTIMATED GFR IS NOT opdj=2828) ACCURATE CREATININE CLEARANCE IN PREDICTING GLOMERULAR FILTRATION RATE. ESTIMATED GFR IS NOT APPLICABLE FOR DIALYSIS PATIENTS. Specimen slightly ictericCREATININE, RANDOM [id number] 06:19:00 Test Item Value Reference Range Comments CREATININE URINE (BEAKER) (test efbe=562) 60.6 mg/dL Reference Range: No [id number] 13:43:00 Test Item Value Reference Range Comments ETHANOL (BEAKER) (test rkkb=600) < mg/dL <=10 COMPREHENSIVE METABOLIC [id number] 08:23:00 Test Item Value Reference Range Comments TOTAL PROTEIN (BEAKER) 5.5 gm/dL 6.0-8.3 (test zlau=666) ALBUMIN (BEAKER) (test 3.3 g/dL 3.5-5.0 zusv=6768) ALKALINE PHOSPHATASE 85 U/L 40-150 (BEAKER) (test uclr=435) BILIRUBIN TOTAL (BEAKER) 3.8 mg/dL 0.2-1.2 (test jajb=378) SODIUM (BEAKER) (test 125 meq/L 136-145 kpcl=377) POTASSIUM (BEAKER) (test 4.7 meq/L 3.5-5.1 zncx=695) CHLORIDE (BEAKER) (test 96 meq/L 98-107 phfs=133) CO2 (BEAKER) (test 21 meq/L 22-29 nwzd=387) BLOOD UREA NITROGEN 22 mg/dL 7-21 (BEAKER) (test steq=329) CREATININE (BEAKER) (test 1.26 mg/dL 0.57-1.25 txsw=253) GLUCOSE RANDOM (BEAKER) 95 mg/dL 70-105 (test tgcz=418) CALCIUM (BEAKER) (test 9.1 mg/dL 8.4-10.2 uskb=325) AST (SGOT) (BEAKER) (test 20 U/L 5-34 ygus=164) ALT (SGPT) (BEAKER) (test 8 U/L 6-55 yrmt=628) EGFR (BEAKER) (test 60 mL/min/1.73 sq m ESTIMATED GFR IS NOT yaiu=2366) ACCURATE CREATININE CLEARANCE IN PREDICTING GLOMERULAR FILTRATION RATE. ESTIMATED GFR IS NOT APPLICABLE FOR DIALYSIS PATIENTS. Specimen slightly ictericCBC W/PLT COUNT & AUTO [id number] 07:17 :00 Test Item Value Reference Range Comments WHITE BLOOD CELL COUNT (BEAKER) (test mmae=984) 2.8 K/ L 3.5-10.5 RED BLOOD CELL COUNT (BEAKER) (test vwce=918) 2.28 M/ L 4.63-6.08 HEMOGLOBIN (BEAKER) (test hbkh=788) 7.3 GM/DL 13.7-17.5 HEMATOCRIT (BEAKER) (test vpcf=284) 21.4 % 40.1-51.0 MEAN CORPUSCULAR VOLUME (BEAKER) (test rhgc=469) 93.9 fL 79.0-92.2 MEAN CORPUSCULAR HEMOGLOBIN (BEAKER) (test 32.0 pg 25.7-32.2 tmkl=712) MEAN CORPUSCULAR HEMOGLOBIN CONC (BEAKER) (test 34.1 GM/DL 32.3-36.5 jnvs=649) RED CELL DISTRIBUTION WIDTH (BEAKER) (test 16.9 % 11.6-14.4 icme=664) PLATELET COUNT (BEAKER) (test swca=759) 52 K/CU MM 150-450 MEAN PLATELET VOLUME (BEAKER) (test mbyi=745) 9.8 fL 9.4-12.4 NUCLEATED RED BLOOD CELLS (BEAKER) (test 0 /100 WBC 0-0 kdvr=586) NEUTROPHILS RELATIVE PERCENT (BEAKER) (test 61 % aanh=721) LYMPHOCYTES RELATIVE PERCENT (BEAKER) (test 14 % sztn=263) MONOCYTES RELATIVE PERCENT (BEAKER) (test 18 % ntdd=428) EOSINOPHILS RELATIVE PERCENT (BEAKER) (test 7 % uoxr=477) BASOPHILS RELATIVE PERCENT (BEAKER) (test 0 % pads=958) NEUTROPHILS ABSOLUTE COUNT (BEAKER) (test 1.69 K/ L 1.78-5.38 xcme=544) LYMPHOCYTES ABSOLUTE COUNT (BEAKER) (test 0.38 K/ L 1.32-3.57 aide=816) MONOCYTES ABSOLUTE COUNT (BEAKER) (test vdss=828) 0.51 K/ L 0.30-0.82 EOSINOPHILS ABSOLUTE COUNT (BEAKER) (test 0.18 K/ L 0.04-0.54 vtqw=860) BASOPHILS ABSOLUTE COUNT (BEAKER) (test gyje=304) 0.01 K/ L 0.01-0.08 IMMATURE GRANULOCYTES-RELATIVE PERCENT (BEAKER) 1 % 0-1 (test gdmm=4995) CT, [id number] 22:20:00FINAL REPORT EXAM: CT of the abdomen [...] MDReport Verified Date/Time: 12/28/2017 22:20:52 Reading Location: [address] Transitional Reading Room CBC W/PLT COUNT & AUTO [id number] 18:06:00 Test Item Value Reference Range Comments WHITE BLOOD CELL COUNT (BEAKER) (test mzzu=251) 2.9 K/ L 3.5-10.5 RED BLOOD CELL COUNT (BEAKER) (test cnhb=730) 2.03 M/ L 4.63-6.08 HEMOGLOBIN (BEAKER) (test jsmc=090) 6.5 GM/DL 13.7-17.5 HEMATOCRIT (BEAKER) (test qwzx=720) 19.2 % 40.1-51.0 MEAN CORPUSCULAR VOLUME (BEAKER) (test woyq=837) 94.6 fL 79.0-92.2 MEAN CORPUSCULAR HEMOGLOBIN (BEAKER) (test 32.0 pg 25.7-32.2 nldc=804) MEAN CORPUSCULAR HEMOGLOBIN CONC (BEAKER) (test 33.9 GM/DL 32.3-36.5 joth=595) RED CELL DISTRIBUTION WIDTH (BEAKER) (test 17.6 % 11.6-14.4 kkhi=190) PLATELET COUNT (BEAKER) (test xomf=660) 46 K/CU MM 150-450 MEAN PLATELET VOLUME (BEAKER) (test rkxf=902) 9.3 fL 9.4-12.4 NUCLEATED RED BLOOD CELLS (BEAKER) (test 0 /100 WBC 0-0 cyry=648) NEUTROPHILS RELATIVE PERCENT (BEAKER) (test 66 % tajx=150) LYMPHOCYTES RELATIVE PERCENT (BEAKER) (test 12 % fgmt=179) MONOCYTES RELATIVE PERCENT (BEAKER) (test 15 % xlkn=404) EOSINOPHILS RELATIVE PERCENT (BEAKER) (test 6 % evws=149) BASOPHILS RELATIVE PERCENT (BEAKER) (test 0 % rjvm=691) NEUTROPHILS ABSOLUTE COUNT (BEAKER) (test 1.92 K/ L 1.78-5.38 kmhc=198) LYMPHOCYTES ABSOLUTE COUNT (BEAKER) (test 0.36 K/ L 1.32-3.57 wwjd=887) MONOCYTES ABSOLUTE COUNT (BEAKER) (test pmzn=764) 0.44 K/ L 0.30-0.82 EOSINOPHILS ABSOLUTE COUNT (BEAKER) (test 0.16 K/ L 0.04-0.54 sbup=107) BASOPHILS ABSOLUTE COUNT (BEAKER) (test lesa=789) 0.01 K/ L 0.01-0.08 IMMATURE GRANULOCYTES-RELATIVE PERCENT (BEAKER) 1 % 0-1 (test cirq=8015) CBC W/PLT COUNT & AUTO [id number] 12:30:00 Test Item Value Reference Range Comments WHITE BLOOD CELL COUNT (BEAKER) (test blho=417) 3.1 K/ L 3.5-10.5 RED BLOOD CELL COUNT (BEAKER) (test dsku=577) 2.09 M/ L 4.63-6.08 HEMOGLOBIN (BEAKER) (test cidd=269) 6.8 GM/DL 13.7-17.5 HEMATOCRIT (BEAKER) (test ieba=929) 19.9 % 40.1-51.0 MEAN CORPUSCULAR VOLUME (BEAKER) (test khps=639) 95.2 fL 79.0-92.2 MEAN CORPUSCULAR HEMOGLOBIN (BEAKER) (test 32.5 pg 25.7-32.2 kgcu=003) MEAN CORPUSCULAR HEMOGLOBIN CONC (BEAKER) (test 34.2 GM/DL 32.3-36.5 efns=330) RED CELL DISTRIBUTION WIDTH (BEAKER) (test 17.5 % 11.6-14.4 qfdp=962) PLATELET COUNT (BEAKER) (test zllv=501) 65 K/CU MM 150-450 MEAN PLATELET VOLUME (BEAKER) (test xhfn=142) 10.6 fL 9.4-12.4 NUCLEATED RED BLOOD CELLS (BEAKER) (test 0 /100 WBC 0-0 ucvn=793) NEUTROPHILS RELATIVE PERCENT (BEAKER) (test 60 % ctjl=440) LYMPHOCYTES RELATIVE PERCENT (BEAKER) (test 14 % hboj=009) MONOCYTES RELATIVE PERCENT (BEAKER) (test 17 % gucu=924) EOSINOPHILS RELATIVE PERCENT (BEAKER) (test 8 % lwau=151) BASOPHILS RELATIVE PERCENT (BEAKER) (test 0 % pdrp=901) NEUTROPHILS ABSOLUTE COUNT (BEAKER) (test 1.85 K/ L 1.78-5.38 kkxy=194) LYMPHOCYTES ABSOLUTE COUNT (BEAKER) (test 0.42 K/ L 1.32-3.57 nrrp=896) MONOCYTES ABSOLUTE COUNT (BEAKER) (test vrfj=317) 0.52 K/ L 0.30-0.82 EOSINOPHILS ABSOLUTE COUNT (BEAKER) (test 0.26 K/ L 0.04-0.54 lzbd=351) BASOPHILS ABSOLUTE COUNT (BEAKER) (test laev=318) 0.01 K/ L 0.01-0.08 IMMATURE GRANULOCYTES-RELATIVE PERCENT (BEAKER) 1 % 0-1 (test kufl=7089) U/S, [id number] 06:59:00Limit fluid removal to no more than 5 litersReason for exam:->ascites, concern for sbpShould thisbe performed at the bedside?->NoFINAL REPORT Paracentesis dated 2017 Procedure: Ultrasound-guided paracentesis. Preprocedure diagnosis: Ascites Postprocedure diagnosis: Ascites Conscious sedation: None. Radiologist: Lena Lynn M.D. Armature Winder Repair Helper: None Anesthesia: 1% Xylocaine mixed with sodium bicarbonate local anesthesia. Technique: After obtaining informed consent, ultrasound-guided paracentesis was performed under usual sterile technique. Using a 5 amharic drainage catheter, puncture was made in the right lower quadrant abdomen. Approximately 5000 cc of serous fluid was removed. Patient tolerated the procedure well without complication. Complication: None Graft/ Implant: None Estimated Blood Loss: NoneImpression: Ultrasound-guided paracentesis. Signed: Lena Lynn MDReport Verified Date/Time: 12/28/2017 06:59 :16 Reading Location: [facility] B1 C013Y CT Body Reading Room ALPHA FETOPROTEIN (AFP), TUMOR [id number] 06:22:00 Test Item Value Reference Range Comments ALPHA-FETOPROTEIN (BEAKER) (test uzxq=5851) 4.1 ng/mL <10.0 COMPREHENSIVE METABOLIC [id number] 06:00:00 Test Item Value Reference Range Comments TOTAL PROTEIN (BEAKER) 5.3 gm/dL 6.0-8.3 (test opwi=695) ALBUMIN (BEAKER) (test 2.7 g/dL 3.5-5.0 dtgr=4331) ALKALINE PHOSPHATASE 94 U/L 40-150 (BEAKER) (test tjbv=775) BILIRUBIN TOTAL (BEAKER) 3.7 mg/dL 0.2-1.2 (test voxm=193) SODIUM (BEAKER) (test 124 meq/L 136-145 bnka=811) POTASSIUM (BEAKER) (test 4.6 meq/L 3.5-5.1 dpmn=024) CHLORIDE (BEAKER) (test 96 meq/L 98-107 sskm=558) CO2 (BEAKER) (test 22 meq/L 22-29 ctjb=983) BLOOD UREA NITROGEN 22 mg/dL 7-21 (BEAKER) (test ekpn=160) CREATININE (BEAKER) (test 1.40 mg/dL 0.57-1.25 vgqs=036) GLUCOSE RANDOM (BEAKER) 89 mg/dL 70-105 (test isfd=698) CALCIUM (BEAKER) (test 8.8 mg/dL 8.4-10.2 epzk=757) AST (SGOT) (BEAKER) (test 25 U/L 5-34 ouqr=274) ALT (SGPT) (BEAKER) (test 10 U/L 6-55 cqpw=429) EGFR (BEAKER) (test 53 mL/min/1.73 sq m ESTIMATED GFR IS NOT netx=9069) ACCURATE CREATININE CLEARANCE IN PREDICTING GLOMERULAR FILTRATION RATE. ESTIMATED GFR IS NOT APPLICABLE FOR DIALYSIS PATIENTS. Specimen slightly ictericCBC W/PLT COUNT & AUTO [id number] 05:50 :00 Test Item Value Reference Range Comments WHITE BLOOD CELL COUNT (BEAKER) (test urjn=392) 3.1 K/ L 3.5-10.5 RED BLOOD CELL COUNT (BEAKER) (test hldk=371) 2.00 M/ L 4.63-6.08 HEMOGLOBIN (BEAKER) (test rtce=187) 6.4 GM/DL 13.7-17.5 HEMATOCRIT (BEAKER) (test qgdo=202) 18.9 % 40.1-51.0 MEAN CORPUSCULAR VOLUME (BEAKER) (test euvu=333) 94.5 fL 79.0-92.2 MEAN CORPUSCULAR HEMOGLOBIN (BEAKER) (test 32.0 pg 25.7-32.2 dkwo=467) MEAN CORPUSCULAR HEMOGLOBIN CONC (BEAKER) (test 33.9 GM/DL 32.3-36.5 ehfr=762) RED CELL DISTRIBUTION WIDTH (BEAKER) (test 17.9 % 11.6-14.4 ugxx=945) PLATELET COUNT (BEAKER) (test bkaq=753) 59 K/CU MM 150-450 MEAN PLATELET VOLUME (BEAKER) (test vibh=917) 10.4 fL 9.4-12.4 NUCLEATED RED BLOOD CELLS (BEAKER) (test 0 /100 WBC 0-0 zozw=742) NEUTROPHILS RELATIVE PERCENT (BEAKER) (test 63 % cpsw=707) LYMPHOCYTES RELATIVE PERCENT (BEAKER) (test 14 % ukkx=446) MONOCYTES RELATIVE PERCENT (BEAKER) (test 15 % jbpq=049) EOSINOPHILS RELATIVE PERCENT (BEAKER) (test 7 % rtpw=864) BASOPHILS RELATIVE PERCENT (BEAKER) (test 0 % mbwk=001) NEUTROPHILS ABSOLUTE COUNT (BEAKER) (test 1.94 K/ L 1.78-5.38 vlxf=923) LYMPHOCYTES ABSOLUTE COUNT (BEAKER) (test 0.44 K/ L 1.32-3.57 qxgk=332) MONOCYTES ABSOLUTE COUNT (BEAKER) (test fuhc=553) 0.47 K/ L 0.30-0.82 EOSINOPHILS ABSOLUTE COUNT (BEAKER) (test 0.21 K/ L 0.04-0.54 blqy=453) BASOPHILS ABSOLUTE COUNT (BEAKER) (test efuw=533) 0.01 K/ L 0.01-0.08 IMMATURE GRANULOCYTES-RELATIVE PERCENT (BEAKER) 1 % 0-1 (test xjxh=7810) BODY FLUID CELL COUNT WITH [id number] 20:39:00 Test Item Value Reference Range Comments APPEARANCE FLUID (BEAKER) (test iryu=149) Slightly Hazy Clear COLOR FLUID (BEAKER) (test efrx=866) Yellow Colorless, Straw RBC FLUID (BEAKER) (test nmpu=225) 90 /cu mm <=1 ADJUSTED WBC FLUID (BEAKER) (test ddvx=6055) 47 /cu mm <=5 LINING CELLS (BEAKER) (test aicu=2403) 3 /cu mm <=1 NEUTROPHILS FLUID (BEAKER) (test feqj=5830) 2 % LYMPHS FLUID (BEAKER) (test smps=856) 19 % MONO/MACROPHAGE FLUID (BEAKER) (test 79 % alen=977) EOSINOPHILS FLUID (BEAKER) (test aqfe=971) 0 % BASO FLUID (BEAKER) (test nhko=627) 0 % CONTAINER BODY FLUID (BEAKER) (test EDTA Tube gbkg=0850) ALBUMIN, BODY [id number] 20:14:00 Test Item Value Reference Range Comments ALBUMIN FLUID (BEAKER) (test wbeg=502) 0.4 gm/dL Reference Range: No Normals Assay performance has not been validated for this type of specimen.BASIC METABOLIC [id number] 10:31:00 Test Item Value Reference Range Comments SODIUM (BEAKER) (test 125 meq/L 136-145 eghr=455) POTASSIUM (BEAKER) (test 4.5 meq/L 3.5-5.1 mclg=160) CHLORIDE (BEAKER) (test 98 meq/L 98-107 yile=687) CO2 (BEAKER) (test 20 meq/L 22-29 useu=778) BLOOD UREA NITROGEN 22 mg/dL 7-21 (BEAKER) (test wqcn=308) CREATININE (BEAKER) (test 1.45 mg/dL 0.57-1.25 dhlj=267) GLUCOSE RANDOM (BEAKER) 87 mg/dL 70-105 (test iwrj=832) CALCIUM (BEAKER) (test 8.6 mg/dL 8.4-10.2 eoky=791) EGFR (BEAKER) (test 51 mL/min/1.73 sq m ESTIMATED GFR IS NOT hzph=0952) ACCURATE CREATININE CLEARANCE IN PREDICTING GLOMERULAR FILTRATION RATE. ESTIMATED GFR IS NOT APPLICABLE FOR DIALYSIS PATIENTS. Specimen slightly ictericHEPATIC FUNCTION [id number] 10:31:00 Test Item Value Reference Range Comments TOTAL PROTEIN (BEAKER) (test tmwo=254) 5.8 gm/dL 6.0-8.3 ALBUMIN (BEAKER) (test ofpz=9892) 2.4 g/dL 3.5-5.0 BILIRUBIN TOTAL (BEAKER) (test rolw=842) 4.1 mg/dL 0.2-1.2 BILIRUBIN DIRECT (BEAKER) (test jyqh=424) 3.1 mg/dL 0.1-0.5 ALKALINE PHOSPHATASE (BEAKER) (test rpuw=758) 126 U/L 40-150 AST (SGOT) (BEAKER) (test zoof=093) 28 U/L 5-34 ALT (SGPT) (BEAKER) (test wtdl=005) 13 U/L 6-55 Specimen slightly ictericCBC W/PLT COUNT & AUTO [id number] 10:09 :00 Test Item Value Reference Range Comments WHITE BLOOD CELL COUNT (BEAKER) (test kloi=233) 5.5 K/ L 3.5-10.5 RED BLOOD CELL COUNT (BEAKER) (test rbvz=190) 2.56 M/ L 4.63-6.08 HEMOGLOBIN (BEAKER) (test yzvx=886) 8.1 GM/DL 13.7-17.5 HEMATOCRIT (BEAKER) (test utlg=876) 24.2 % 40.1-51.0 MEAN CORPUSCULAR VOLUME (BEAKER) (test xlph=815) 94.5 fL 79.0-92.2 MEAN CORPUSCULAR HEMOGLOBIN (BEAKER) (test 31.6 pg 25.7-32.2 ajxd=910) MEAN CORPUSCULAR HEMOGLOBIN CONC (BEAKER) (test 33.5 GM/DL 32.3-36.5 jega=448) RED CELL DISTRIBUTION WIDTH (BEAKER) (test 18.6 % 11.6-14.4 aspr=435) PLATELET COUNT (BEAKER) (test ngzy=617) 86 K/CU MM 150-450 MEAN PLATELET VOLUME (BEAKER) (test jpnb=129) 9.7 fL 9.4-12.4 NUCLEATED RED BLOOD CELLS (BEAKER) (test 0 /100 WBC 0-0 cobb=356) NEUTROPHILS RELATIVE PERCENT (BEAKER) (test 65 % snun=484) LYMPHOCYTES RELATIVE PERCENT (BEAKER) (test 13 % vlgx=394) MONOCYTES RELATIVE PERCENT (BEAKER) (test 14 % dusy=431) EOSINOPHILS RELATIVE PERCENT (BEAKER) (test 6 % lcrv=614) BASOPHILS RELATIVE PERCENT (BEAKER) (test 0 % qbbo=489) NEUTROPHILS ABSOLUTE COUNT (BEAKER) (test 3.59 K/ L 1.78-5.38 ihnn=313) LYMPHOCYTES ABSOLUTE COUNT (BEAKER) (test 0.73 K/ L 1.32-3.57 qsgc=292) MONOCYTES ABSOLUTE COUNT (BEAKER) (test tcke=595) 0.76 K/ L 0.30-0.82 EOSINOPHILS ABSOLUTE COUNT (BEAKER) (test 0.33 K/ L 0.04-0.54 ldeo=387) BASOPHILS ABSOLUTE COUNT (BEAKER) (test wulz=298) 0.02 K/ L 0.01-0.08 IMMATURE GRANULOCYTES-RELATIVE PERCENT (BEAKER) 1 % 0-1 (test zbla=6946) PROTHROMBIN [id number] 07:51:00 Test Item Value Reference Range Comments PROTIME (BEAKER) (test xiqn=699) 23.8 seconds 11.7-14.7 INR (BEAKER) (test oahx=695) 2.1 <=5.9 RECOMMENDED COUMADIN/WARFARIN INR THERAPY RANGESSTANDARD DOSE: 2.0 - 3.0 Includes: PROPHYLAXIS forvenous thrombosis, systemic embolization; TREATMENT for venous thrombosis and/or pulmonary embolus.HIGH RISK: Target INR is 2.5-3.5 for patients with mechanical heart valves.BLOOD [id number] 05:02:00 Test Item Value Reference Range Comments CULTURE (BEAKER) (test kfin=9339) No growth in 5 days BLOOD [id number] 05:02:00 Test Item Value Reference Range Comments CULTURE (BEAKER) (test uwhh=9258) No growth in 5 days BODY FLUID CULTURE + GRAM [id number] 09:05:00 Test Item Value Reference Range Comments CULTURE (BEAKER) (test ndmy=8624) No growth GRAM STAIN RESULT (BEAKER) (test No White blood cells seen rheb=1103) GRAM STAIN RESULT (BEAKER) (test No organisms seen zitl=83545) RAPID DRUG SCREEN, [id number] 23:13:00 Test Item Value Reference Range Comments BARBITURATE URINE (BEAKER) (test xbbn=559) Negative Negative BENZODIAZEPINE SCREEN URINE (BEAKER) (test Negative Negative tqno=911) COCAINE (METAB.) SCREEN (BEAKER) (test zsuy=8189) Negative Negative METHADONE SCREEN (BEAKER) (test zedj=1972) Negative Negative OPIATE SCREEN URINE (BEAKER) (test knff=370) Negative Negative CANNABINOID SCREEN URINE (BEAKER) (test gurp=535) Negative Negative AMPH/METHAMPH SCREEN (BEAKER) (test ijet=0066) Negative Negative PHENCYCLIDINE SCREEN URINE (BEAKER) (test wtyy=146) Negative Negative OXYCODONE SCREEN URINE (BEAKER) (test msop=8781) Negative Negative DRUG CUTOFF CONC.Cocaine 300 ng/mL Cannabinoid 50 ng/mL Benzodiazepine 200 ng/mLBarbiturate 200 ng/ mLPhencyclidine 25 ng/mLOpiate 300 ng/mLMethadone 300 ng/mLAmphetamine/ 1000 ng/mL MethamphetamineOxycodone 300 ng/mLThis assay provides an unconfirmed qualitative test result for the clinical management of patients in emergency situations. Chain of custody not maintained. Some uieu-xtl-stbqgid medications, as well as adulterants, may cause inaccurate results. Clinical correlation should be applied. A more comprehensive drug screen or confirmation of a detected drug may be performed upon request.MR, ABDOMEN, [id number] 13:52:00FINAL REPORT MRI of the abdomen with [...] Verified Date/Time: 09/05/2017 13:52:35 Reading Location: [address] BodyReading Room CBC W/PLT COUNT & AUTO [id number] 05:46:00 Test Item Value Reference Range Comments WHITE BLOOD CELL COUNT (BEAKER) (test tfld=475) 4.7 K/ L 3.5-10.5 RED BLOOD CELL COUNT (BEAKER) (test nblg=300) 2.49 M/ L 4.63-6.08 HEMOGLOBIN (BEAKER) (test guvl=683) 7.9 GM/DL 13.7-17.5 HEMATOCRIT (BEAKER) (test srqp=806) 22.6 % 40.1-51.0 MEAN CORPUSCULAR VOLUME (BEAKER) (test vfaq=151) 90.8 fL 79.0-92.2 MEAN CORPUSCULAR HEMOGLOBIN (BEAKER) (test 31.7 pg 25.7-32.2 afqu=295) MEAN CORPUSCULAR HEMOGLOBIN CONC (BEAKER) (test 35.0 GM/DL 32.3-36.5 dpoj=717) RED CELL DISTRIBUTION WIDTH (BEAKER) (test 18.8 % 11.6-14.4 bfmm=575) PLATELET COUNT (BEAKER) (test yjfn=628) 60 K/CU MM 150-450 MEAN PLATELET VOLUME (BEAKER) (test loiu=083) 9.2 fL 9.4-12.4 NUCLEATED RED BLOOD CELLS (BEAKER) (test 0 /100 WBC 0-0 dhnv=491) NEUTROPHILS RELATIVE PERCENT (BEAKER) (test 65 % ntaa=292) LYMPHOCYTES RELATIVE PERCENT (BEAKER) (test 13 % buly=335) MONOCYTES RELATIVE PERCENT (BEAKER) (test 15 % noyw=164) EOSINOPHILS RELATIVE PERCENT (BEAKER) (test 6 % tffq=076) BASOPHILS RELATIVE PERCENT (BEAKER) (test 0 % ccon=144) NEUTROPHILS ABSOLUTE COUNT (BEAKER) (test 3.05 K/ L 1.78-5.38 whns=619) LYMPHOCYTES ABSOLUTE COUNT (BEAKER) (test 0.62 K/ L 1.32-3.57 vmbz=537) MONOCYTES ABSOLUTE COUNT (BEAKER) (test gknn=627) 0.68 K/ L 0.30-0.82 EOSINOPHILS ABSOLUTE COUNT (BEAKER) (test 0.28 K/ L 0.04-0.54 fwpx=773) BASOPHILS ABSOLUTE COUNT (BEAKER) (test kpvz=342) 0.02 K/ L 0.01-0.08 IMMATURE GRANULOCYTES-RELATIVE PERCENT (BEAKER) 1 % 0-1 (test eehm=9953) BASIC METABOLIC [id number] 05:44:00 Test Item Value Reference Range Comments SODIUM (BEAKER) (test 127 meq/L 136-145 razw=174) POTASSIUM (BEAKER) (test 4.5 meq/L 3.5-5.1 mqef=344) CHLORIDE (BEAKER) (test 101 meq/L 98-107 nuuz=270) CO2 (BEAKER) (test 19 meq/L 22-29 gnar=693) BLOOD UREA NITROGEN 17 mg/dL 7-21 (BEAKER) (test kvdf=598) CREATININE (BEAKER) (test 0.91 mg/dL 0.57-1.25 kihe=839) GLUCOSE RANDOM (BEAKER) 107 mg/dL 70-105 (test xjep=004) CALCIUM (BEAKER) (test 9.4 mg/dL 8.4-10.2 mrqi=790) EGFR (BEAKER) (test 87 mL/min/1.73 sq m ESTIMATED GFR IS NOT grrd=0196) ACCURATE CREATININE CLEARANCE IN PREDICTING GLOMERULAR FILTRATION RATE. ESTIMATED GFR IS NOT APPLICABLE FOR DIALYSIS PATIENTS. Specimen moderately ictericHEPATIC FUNCTION [id number] 05:44:00 Test Item Value Reference Range Comments TOTAL PROTEIN (BEAKER) (test lwrl=236) 5.6 gm/dL 6.0-8.3 ALBUMIN (BEAKER) (test yrvu=0704) 3.3 g/dL 3.5-5.0 BILIRUBIN TOTAL (BEAKER) (test rgob=772) 10.3 mg/dL 0.2-1.2 BILIRUBIN DIRECT (BEAKER) (test piyt=045) 6.8 mg/dL 0.1-0.5 ALKALINE PHOSPHATASE (BEAKER) (test exzl=339) 103 U/L 40-150 AST (SGOT) (BEAKER) (test ihfa=269) 17 U/L 5-34 ALT (SGPT) (BEAKER) (test geyz=939) 8 U/L 6-55 Specimen moderately ictericPT/[id number] 05:31:00 Test Item Value Reference Range Comments PROTIME (BEAKER) (test xgmk=020) 25.6 seconds 11.7-14.7 INR (BEAKER) (test cdvn=019) 2.3 <=5.9 PARTIAL THROMBOPLASTIN TIME (BEAKER) (test 51.6 seconds 22.5-36.0 cglv=213) RECOMMENDED COUMADIN/WARFARIN INR THERAPY RANGESSTANDARD DOSE: 2.0 - 3.0 Includes: PROPHYLAXIS forvenous thrombosis, systemic embolization; TREATMENT for venous thrombosis and/or pulmonary embolus.HIGH RISK: Target INR is 2.5-3.5 for patients with mechanical heart valves.PROTHROMBIN TIME/[id number] 05:30: 00 Test Item Value Reference Range Comments PROTIME (BEAKER) (test miib=606) 25.6 seconds 11.7-14.7 INR (BEAKER) (test aqfw=147) 2.3 <=5.9 RECOMMENDED COUMADIN/WARFARIN INR THERAPY RANGESSTANDARD DOSE: 2.0 - 3.0 Includes: PROPHYLAXIS forvenous thrombosis, systemic embolization; TREATMENT for venous thrombosis and/or pulmonary embolus.HIGH RISK: Target INR is 2.5-3.5 for patients with mechanical heart valves.BODY FLUID CELL COUNT WITH [id number] 19:30:00 Test Item Value Reference Range Comments APPEARANCE FLUID (BEAKER) (test jdhz=379) Slightly Hazy Clear COLOR FLUID (BEAKER) (test nggu=142) Yellow Colorless, Straw RBC FLUID (BEAKER) (test cvjt=303) 100 /cu mm <=1 ADJUSTED WBC FLUID (BEAKER) (test yoto=4944) 36 /cu mm <=5 LINING CELLS (BEAKER) (test zzui=4989) 4 /cu mm <=1 NEUTROPHILS FLUID (BEAKER) (test evxt=1905) 0 % LYMPHS FLUID (BEAKER) (test ddyo=987) 20 % MONO/MACROPHAGE FLUID (BEAKER) (test 80 % trod=704) EOSINOPHILS FLUID (BEAKER) (test nxsp=285) 0 % BASO FLUID (BEAKER) (test sonf=363) 0 % CONTAINER BODY FLUID (BEAKER) (test EDTA Tube drtl=8703) U/S, [id number] 16:21:00Reason for exam:->ascitesShould this be performed at the bedside?->NoFINAL REPORT PROCEDURE: Ultrasound-guided paracentesis. INDICATION: 52-year-old man with ascites. DESCRIPTION: After obtaining informed written consent, ultrasound scan of the abdomen identified ascites in the right lower quadrant. The overlying skin was prepped and draped in the usual, sterile fashion and local 1% lidocaine anesthesia was administered. A 5 [place] catheter was advanced into the peritoneal cavity and 13,200 cc of cloudy yellow fluid was removed. The catheter was removed without immediate complication. Samples were sent for analysis. IMPRESSION:Uncomplicated ultrasound-guided paracentesis with 13,200 cc fluid removed. Signed: Candice Mckeon Verified Date/Time: 2016 16:21:22 Reading Location: [facility] [id number] Ultrasound Reading Room BASIC METABOLIC [id number] 11:07:00 Test Item Value Reference Range Comments SODIUM (BEAKER) (test 127 meq/L 136-145 eyaf=030) POTASSIUM (BEAKER) (test 4.1 meq/L 3.5-5.1 hxwe=441) CHLORIDE (BEAKER) (test 101 meq/L 98-107 icsb=535) CO2 (BEAKER) (test 23 meq/L 22-29 lvgf=447) BLOOD UREA NITROGEN 17 mg/dL 7-21 (BEAKER) (test alwj=215) CREATININE (BEAKER) (test 1.06 mg/dL 0.57-1.25 fmjm=157) GLUCOSE RANDOM (BEAKER) 104 mg/dL 70-105 (test jacb=712) CALCIUM (BEAKER) (test 8.9 mg/dL 8.4-10.2 lxxi=354) EGFR (BEAKER) (test 73 mL/min/1.73 sq m ESTIMATED GFR IS NOT spud=2821) ACCURATE CREATININE CLEARANCE IN PREDICTING GLOMERULAR FILTRATION RATE. ESTIMATED GFR IS NOT APPLICABLE FOR DIALYSIS PATIENTS. Specimen markedly ictericHEPATIC FUNCTION [id number] 11:07:00 Test Item Value Reference Range Comments TOTAL PROTEIN (BEAKER) (test bypi=785) 5.4 gm/dL 6.0-8.3 ALBUMIN (BEAKER) (test iheb=7742) 2.8 g/dL 3.5-5.0 BILIRUBIN TOTAL (BEAKER) (test dlhz=135) 12.7 mg/dL 0.2-1.2 BILIRUBIN DIRECT (BEAKER) (test rnxd=955) 7.8 mg/dL 0.1-0.5 ALKALINE PHOSPHATASE (BEAKER) (test ycou=256) 90 U/L 40-150 AST (SGOT) (BEAKER) (test fcgk=645) 22 U/L 5-34 ALT (SGPT) (BEAKER) (test cnwk=186) 11 U/L 6-55 Specimen markedly ictericPT/[id number] 11:02:00 Test Item Value Reference Range Comments PROTIME (BEAKER) (test xxwu=821) 23.4 seconds 11.7-14.7 INR (BEAKER) (test almt=791) 2.1 <=5.9 PARTIAL THROMBOPLASTIN TIME (BEAKER) (test 48.7 seconds 22.5-36.0 hxvb=240) RECOMMENDED COUMADIN/WARFARIN INR THERAPY RANGESSTANDARD DOSE: 2.0 - 3.0 Includes: PROPHYLAXIS forvenous thrombosis, systemic embolization; TREATMENT for venous thrombosis and/or pulmonary embolus.HIGH RISK: Target INR is 2.5-3.5 for patients with mechanical heart valves.PROTHROMBIN TIME/[id number] 11:01: 00 Test Item Value Reference Range Comments PROTIME (BEAKER) (test pwkk=973) 23.4 seconds 11.7-14.7 INR (BEAKER) (test vwun=078) 2.1 <=5.9 RECOMMENDED COUMADIN/WARFARIN INR THERAPY RANGESSTANDARD DOSE: 2.0 - 3.0 Includes: PROPHYLAXIS forvenous thrombosis, systemic embolization; TREATMENT for venous thrombosis and/or pulmonary embolus.HIGH RISK: Target INR is 2.5-3.5 for patients with mechanical heart valves.CBC W/PLT COUNT & AUTO [id number] 10:56:00 Test Item Value Reference Range Comments WHITE BLOOD CELL COUNT (BEAKER) (test nzli=037) 4.4 K/ L 3.5-10.5 RED BLOOD CELL COUNT (BEAKER) (test eyou=841) 2.48 M/ L 4.63-6.08 HEMOGLOBIN (BEAKER) (test eagr=077) 7.8 GM/DL 13.7-17.5 HEMATOCRIT (BEAKER) (test uaap=651) 22.7 % 40.1-51.0 MEAN CORPUSCULAR VOLUME (BEAKER) (test ybtp=800) 91.5 fL 79.0-92.2 MEAN CORPUSCULAR HEMOGLOBIN (BEAKER) (test 31.5 pg 25.7-32.2 ibgg=065) MEAN CORPUSCULAR HEMOGLOBIN CONC (BEAKER) (test 34.4 GM/DL 32.3-36.5 sobx=432) RED CELL DISTRIBUTION WIDTH (BEAKER) (test 18.6 % 11.6-14.4 zlef=845) PLATELET COUNT (BEAKER) (test iucw=525) 60 K/CU MM 150-450 MEAN PLATELET VOLUME (BEAKER) (test nhip=103) 8.8 fL 9.4-12.4 NUCLEATED RED BLOOD CELLS (BEAKER) (test 0 /100 WBC 0-0 gayp=992) NEUTROPHILS RELATIVE PERCENT (BEAKER) (test 61 % aqmf=328) LYMPHOCYTES RELATIVE PERCENT (BEAKER) (test 9 % krcl=427) MONOCYTES RELATIVE PERCENT (BEAKER) (test 21 % rgdx=890) EOSINOPHILS RELATIVE PERCENT (BEAKER) (test 8 % gjsh=839) BASOPHILS RELATIVE PERCENT (BEAKER) (test 1 % hqxo=131) NEUTROPHILS ABSOLUTE COUNT (BEAKER) (test 2.68 K/ L 1.78-5.38 nouh=644) LYMPHOCYTES ABSOLUTE COUNT (BEAKER) (test 0.38 K/ L 1.32-3.57 yrnj=064) MONOCYTES ABSOLUTE COUNT (BEAKER) (test ieyb=614) 0.94 K/ L 0.30-0.82 EOSINOPHILS ABSOLUTE COUNT (BEAKER) (test 0.33 K/ L 0.04-0.54 npqo=626) BASOPHILS ABSOLUTE COUNT (BEAKER) (test izfj=329) 0.02 K/ L 0.01-0.08 IMMATURE GRANULOCYTES-RELATIVE PERCENT (BEAKER) 1 % 0-1 (test mzry=9649) URINALYSIS W/ [id number] 06:18:00 Test Item Value Reference Range Comments COLOR (BEAKER) (test pqdi=492) Dark Yellow CLARITY (BEAKER) (test zgof=461) Clear SPECIFIC GRAVITY UA (BEAKER) (test odzw=329) 1.008 1.001-1.035 PH UA (BEAKER) (test wnni=276) 6.0 5.0-8.0 PROTEIN UA (BEAKER) (test ycah=825) Negative Negative GLUCOSE UA (BEAKER) (test wldn=551) Negative Negative KETONES UA (BEAKER) (test qcte=614) Negative Negative BILIRUBIN UA (BEAKER) (test ezzc=814) Positive Negative BLOOD UA (BEAKER) (test zipk=651) Moderate Negative NITRITE UA (BEAKER) (test cnsf=503) Negative Negative LEUKOCYTE ESTERASE UA (BEAKER) (test uuij=375) Negative Negative UROBILINOGEN UA (BEAKER) (test epla=307) 0.2 mg/dL 0.2-1.0 RBC UA (BEAKER) (test iyov=421) 80 /HPF WBC UA (BEAKER) (test xjql=212) 10 /HPF HYALINE CASTS (BEAKER) (test bqhd=224) 5 /LPF AMORPHOUS CRYSTALS (BEAKER) (test gosx=0296) Rare SOURCE(BEAKER) (test cigx=6499) CBC W/PLT COUNT & AUTO [id number] 00:00:00 Test Item Value Reference Range Comments WHITE BLOOD CELL COUNT (BEAKER) (test cpja=914) 3.7 K/ L 3.5-10.5 RED BLOOD CELL COUNT (BEAKER) (test bphp=200) 2.20 M/ L 4.63-6.08 HEMOGLOBIN (BEAKER) (test lfbs=101) 7.0 GM/DL 13.7-17.5 HEMATOCRIT (BEAKER) (test bigx=985) 20.2 % 40.1-51.0 MEAN CORPUSCULAR VOLUME (BEAKER) (test gahg=218) 91.8 fL 79.0-92.2 MEAN CORPUSCULAR HEMOGLOBIN (BEAKER) (test 31.8 pg 25.7-32.2 krss=071) MEAN CORPUSCULAR HEMOGLOBIN CONC (BEAKER) (test 34.7 GM/DL 32.3-36.5 yrrj=104) RED CELL DISTRIBUTION WIDTH (BEAKER) (test 19.3 % 11.6-14.4 eazw=463) PLATELET COUNT (BEAKER) (test hhjq=305) 63 K/CU MM 150-450 MEAN PLATELET VOLUME (BEAKER) (test nzez=233) 9.1 fL 9.4-12.4 NUCLEATED RED BLOOD CELLS (BEAKER) (test 0 /100 WBC 0-0 ebxp=604) NEUTROPHILS RELATIVE PERCENT (BEAKER) (test 62 % tecg=423) LYMPHOCYTES RELATIVE PERCENT (BEAKER) (test 11 % bfue=135) MONOCYTES RELATIVE PERCENT (BEAKER) (test 19 % febk=561) EOSINOPHILS RELATIVE PERCENT (BEAKER) (test 7 % mcgd=900) BASOPHILS RELATIVE PERCENT (BEAKER) (test 1 % xkbw=071) NEUTROPHILS ABSOLUTE COUNT (BEAKER) (test 2.29 K/ L 1.78-5.38 voba=483) LYMPHOCYTES ABSOLUTE COUNT (BEAKER) (test 0.39 K/ L 1.32-3.57 iaty=499) MONOCYTES ABSOLUTE COUNT (BEAKER) (test yosi=036) 0.71 K/ L 0.30-0.82 EOSINOPHILS ABSOLUTE COUNT (BEAKER) (test 0.27 K/ L 0.04-0.54 shzj=233) BASOPHILS ABSOLUTE COUNT (BEAKER) (test qqpx=788) 0.02 K/ L 0.01-0.08 IMMATURE GRANULOCYTES-RELATIVE PERCENT (BEAKER) 1 % 0-1 (test lwuu=7753) PROTHROMBIN [id number] 22:52:00 Test Item Value Reference Range Comments PROTIME (BEAKER) (test ohrl=810) 25.6 seconds 11.7-14.7 INR (BEAKER) (test ukmc=034) 2.3 <=5.9 RECOMMENDED COUMADIN/WARFARIN INR THERAPY RANGESSTANDARD DOSE: 2.0 - 3.0 Includes: PROPHYLAXIS forvenous thrombosis, systemic embolization; TREATMENT for venous thrombosis and/or pulmonary embolus.HIGH RISK: Target INR is 2.5-3.5 for patients with mechanical heart valves.[id number] 22:52:00 Test Item Value Reference Range Comments MAGNESIUM (BEAKER) (test ocsv=698) 1.3 mg/dL 1.6-2.6 BASIC METABOLIC [id number] 22:52:00 Test Item Value Reference Range Comments SODIUM (BEAKER) (test 124 meq/L 136-145 rbxk=736) POTASSIUM (BEAKER) (test 4.1 meq/L 3.5-5.1 thia=247) CHLORIDE (BEAKER) (test 99 meq/L 98-107 ziwt=923) CO2 (BEAKER) (test 18 meq/L 22-29 bxdl=925) BLOOD UREA NITROGEN 16 mg/dL 7-21 (BEAKER) (test oarb=647) CREATININE (BEAKER) (test 0.97 mg/dL 0.57-1.25 lmab=881) GLUCOSE RANDOM (BEAKER) 99 mg/dL 70-105 (test kcnj=258) CALCIUM (BEAKER) (test 8.7 mg/dL 8.4-10.2 iggf=442) EGFR (BEAKER) (test 81 mL/min/1.73 sq m ESTIMATED GFR IS NOT vipm=1982) ACCURATE CREATININE CLEARANCE IN PREDICTING GLOMERULAR FILTRATION RATE. ESTIMATED GFR IS NOT APPLICABLE FOR DIALYSIS PATIENTS. Specimen markedly ictericHEPATIC FUNCTION [id number] 22:52:00 Test Item Value Reference Range Comments TOTAL PROTEIN (BEAKER) (test bpnf=926) 5.3 gm/dL 6.0-8.3 ALBUMIN (BEAKER) (test tbja=2680) 2.8 g/dL 3.5-5.0 BILIRUBIN TOTAL (BEAKER) (test orwb=253) 12.7 mg/dL 0.2-1.2 BILIRUBIN DIRECT (BEAKER) (test pqia=350) 7.6 mg/dL 0.1-0.5 ALKALINE PHOSPHATASE (BEAKER) (test qghx=430) 93 U/L 40-150 AST (SGOT) (BEAKER) (test lckh=198) 21 U/L 5-34 ALT (SGPT) (BEAKER) (test nxrb=428) 9 U/L 6-55 Specimen markedly ictericALPHA FETOPROTEIN (AFP), TUMOR [id number] 16:39: 00 Test Item Value Reference Range Comments ALPHA-FETOPROTEIN (BEAKER) (test vmrb=5607) 2.5 ng/mL <10.0 BASIC METABOLIC [id number] 15:53:00 Test Item Value Reference Range Comments SODIUM (BEAKER) (test 126 meq/L 136-145 jqlo=359) POTASSIUM (BEAKER) (test 5.1 meq/L 3.5-5.1 flrq=861) CHLORIDE (BEAKER) (test 101 meq/L 98-107 dzzr=275) CO2 (BEAKER) (test 19 meq/L 22-29 hpsa=224) BLOOD UREA NITROGEN 14 mg/dL 7-21 (BEAKER) (test aaab=056) CREATININE (BEAKER) (test 1.01 mg/dL 0.57-1.25 cuao=325) GLUCOSE RANDOM (BEAKER) 104 mg/dL 70-105 (test hrdx=105) CALCIUM (BEAKER) (test 9.0 mg/dL 8.4-10.2 tnnz=498) EGFR (BEAKER) (test 78 mL/min/1.73 sq m ESTIMATED GFR IS NOT orgr=2475) ACCURATE CREATININE CLEARANCE IN PREDICTING GLOMERULAR FILTRATION RATE. ESTIMATED GFR IS NOT APPLICABLE FOR DIALYSIS PATIENTS. Specimen moderately ictericHEPATIC FUNCTION [id number] 15:53:00 Test Item Value Reference Range Comments TOTAL PROTEIN (BEAKER) (test azco=265) 6.1 gm/dL 6.0-8.3 ALBUMIN (BEAKER) (test eixp=9271) 2.6 g/dL 3.5-5.0 BILIRUBIN TOTAL (BEAKER) (test iqii=996) 10.4 mg/dL 0.2-1.2 BILIRUBIN DIRECT (BEAKER) (test jfwr=357) 7.5 mg/dL 0.1-0.5 ALKALINE PHOSPHATASE (BEAKER) (test spnc=302) 124 U/L 40-150 AST (SGOT) (BEAKER) (test jbla=659) 29 U/L 5-34 ALT (SGPT) (BEAKER) (test eynn=977) 12 U/L 6-55 Specimen moderately ictericGAMMA GLUTAMYL TRANSFERASE (GGT)[id number] 15:53:00 Test Item Value Reference Range Comments GAMMA GLUTAMYL TRANSFERASE (BEAKER) (test uvld=310) 17 U/L 9-64 Specimen moderately ictericPROTHROMBIN TIME/[id number] 15:40:00 Test Item Value Reference Range Comments PROTIME (BEAKER) (test yfjy=976) 22.6 seconds 11.7-14.7 INR (BEAKER) (test sqhn=953) 2.0 <=5.9 RECOMMENDED COUMADIN/WARFARIN INR THERAPY RANGESSTANDARD DOSE: 2.0 - 3.0 Includes: PROPHYLAXIS forvenous thrombosis, systemic embolization; TREATMENT for venous thrombosis and/or pulmonary embolus.HIGH RISK: Target INR is 2.5-3.5 for patients with mechanical heart valves.CBC W/PLT COUNT & AUTO [id number] 15:38:00 Test Item Value Reference Range Comments WHITE BLOOD CELL COUNT (BEAKER) (test ikhk=552) 7.3 K/ L 3.5-10.5 RED BLOOD CELL COUNT (BEAKER) (test zxez=356) 2.78 M/ L 4.63-6.08 HEMOGLOBIN (BEAKER) (test oteh=764) 9.1 GM/DL 13.7-17.5 HEMATOCRIT (BEAKER) (test mpni=079) 27.3 % 40.1-51.0 MEAN CORPUSCULAR VOLUME (BEAKER) (test vleu=273) 98.2 fL 79.0-92.2 MEAN CORPUSCULAR HEMOGLOBIN (BEAKER) (test 32.7 pg 25.7-32.2 igxb=541) MEAN CORPUSCULAR HEMOGLOBIN CONC (BEAKER) (test 33.3 GM/DL 32.3-36.5 bipm=953) RED CELL DISTRIBUTION WIDTH (BEAKER) (test 16.4 % 11.6-14.4 qruq=450) PLATELET COUNT (BEAKER) (test ltvq=156) 71 K/CU MM 150-450 MEAN PLATELET VOLUME (BEAKER) (test yjer=186) 9.1 fL 9.4-12.4 NUCLEATED RED BLOOD CELLS (BEAKER) (test 0 /100 WBC 0-0 ydtw=741) NEUTROPHILS RELATIVE PERCENT (BEAKER) (test 71 % yvrx=764) LYMPHOCYTES RELATIVE PERCENT (BEAKER) (test 8 % kjej=655) MONOCYTES RELATIVE PERCENT (BEAKER) (test 15 % ybve=544) EOSINOPHILS RELATIVE PERCENT (BEAKER) (test 5 % ezqf=092) BASOPHILS RELATIVE PERCENT (BEAKER) (test 0 % jdyx=822) NEUTROPHILS ABSOLUTE COUNT (BEAKER) (test 5.13 K/ L 1.78-5.38 zlap=055) LYMPHOCYTES ABSOLUTE COUNT (BEAKER) (test 0.59 K/ L 1.32-3.57 cstw=029) MONOCYTES ABSOLUTE COUNT (BEAKER) (test uulf=935) 1.06 K/ L 0.30-0.82 EOSINOPHILS ABSOLUTE COUNT (BEAKER) (test 0.33 K/ L 0.04-0.54 arov=727) BASOPHILS ABSOLUTE COUNT (BEAKER) (test mpqk=226) 0.03 K/ L 0.01-0.08 IMMATURE GRANULOCYTES-RELATIVE PERCENT (BEAKER) 2 % 0-1 (test bkaz=3440) FUNGUS CULTURE + [id number] 07:22:00 Test Item Value Reference Range Comments CULTURE (BEAKER) (test No fungus isolated in 28 days nkeb=7625) FUNGUS SMEAR (BEAKER) (test No fungi seen bamq=6233) HISTOPLASMA ANTIGEN, [id number] 08:01:00 Test Item Value Reference Range Comments SCAN RESULT (test mdkl=[id number]) TISSUE [id number] 10:58:00 Test Item Value Reference Range Comments LAB AP CPT CODE (BEAKER) (test twqx=2047) 236[address] BLOOD [id number] 16:15:00 Test Item Value Reference Range Comments CULTURE (BEAKER) (test xapd=8252) No growth in 5 days BLOOD [id number] 16:15:00 Test Item Value Reference Range Comments CULTURE (BEAKER) (test qacb=5664) No growth in 5 days [id number] 06:54:00 Test Item Value Reference Range Comments PHOSPHORUS (BEAKER) (test qzwz=820) 3.3 mg/dL 2.3-4.7 [id number] 06:54:00 Test Item Value Reference Range Comments MAGNESIUM (BEAKER) (test szew=126) 1.2 mg/dL 1.6-2.6 BASIC METABOLIC [id number] 06:54:00 Test Item Value Reference Range Comments SODIUM (BEAKER) (test 133 meq/L 136-145 iuiq=817) POTASSIUM (BEAKER) (test 3.6 meq/L 3.5-5.1 iuhw=721) CHLORIDE (BEAKER) (test 108 meq/L 98-107 ntuj=132) CO2 (BEAKER) (test 17 meq/L 22-29 kxcu=208) BLOOD UREA NITROGEN 13 mg/dL 7-21 (BEAKER) (test dzcb=264) CREATININE (BEAKER) (test 1.16 mg/dL 0.57-1.25 ixxb=535) GLUCOSE RANDOM (BEAKER) 82 mg/dL 70-105 (test bjif=950) CALCIUM (BEAKER) (test 8.0 mg/dL 8.4-10.2 famo=128) EGFR (BEAKER) (test 66 mL/min/1.73 sq m ESTIMATED GFR IS NOT ggar=6130) ACCURATE CREATININE CLEARANCE IN PREDICTING GLOMERULAR FILTRATION RATE. ESTIMATED GFR IS NOT APPLICABLE FOR DIALYSIS PATIENTS. Specimen moderately ictericHEPATIC FUNCTION [id number] 06:54:00 Test Item Value Reference Range Comments TOTAL PROTEIN (BEAKER) (test zdmf=559) 5.7 gm/dL 6.0-8.3 ALBUMIN (BEAKER) (test mnkr=7919) 3.1 g/dL 3.5-5.0 BILIRUBIN TOTAL (BEAKER) (test hhrm=036) 5.2 mg/dL 0.2-1.2 BILIRUBIN DIRECT (BEAKER) (test jamt=035) 2.6 mg/dL 0.1-0.5 ALKALINE PHOSPHATASE (BEAKER) (test wquk=830) 55 U/L 40-150 AST (SGOT) (BEAKER) (test epsv=034) 32 U/L 5-34 ALT (SGPT) (BEAKER) (test jbtc=320) 9 U/L 6-55 Specimen moderately ictericCALCIUM, [id number] 06:30:00 Test Item Value Reference Range Comments CALCIUM IONIZED (BEAKER) (test tagg=929) 1.00 mmol/L 1.12-1.27 PH, BLOOD (BEAKER) (test nguo=8850) 7.52 CBC W/PLT COUNT & AUTO [id number] 06:17:00 Test Item Value Reference Range Comments WHITE BLOOD CELL COUNT (BEAKER) (test flyt=720) 4.7 K/ L 4.0-10.0 RED BLOOD CELL COUNT (BEAKER) (test okyi=091) 2.05 M/ L 4.20-5.80 HEMOGLOBIN (BEAKER) (test kbxq=380) 7.1 GM/DL 13.0-16.8 HEMATOCRIT (BEAKER) (test zahc=137) 21.1 % 40.0-50.0 MEAN CORPUSCULAR VOLUME (BEAKER) (test qgql=460) 103.0 fL 82.0-98.0 MEAN CORPUSCULAR HEMOGLOBIN (BEAKER) (test 34.8 pg 27.0-33.0 belx=821) MEAN CORPUSCULAR HEMOGLOBIN CONC (BEAKER) (test 33.8 GM/DL 32.0-36.0 yqed=902) RED CELL DISTRIBUTION WIDTH (BEAKER) (test 13.9 % 10.3-14.2 ktns=211) PLATELET COUNT (BEAKER) (test yeeh=323) 71 K/CU MM 150-430 MEAN PLATELET VOLUME (BEAKER) (test ytbe=860) 6.6 fL 6.5-10.5 NUCLEATED RED BLOOD CELLS (BEAKER) (test 0 /100 WBC 0-0 zauk=522) NEUTROPHILS RELATIVE PERCENT (BEAKER) (test 68 % bpdh=963) LYMPHOCYTES RELATIVE PERCENT (BEAKER) (test 16 % iwys=083) MONOCYTES RELATIVE PERCENT (BEAKER) (test 12 % vxpd=044) EOSINOPHILS RELATIVE PERCENT (BEAKER) (test 4 % pgpd=914) BASOPHILS RELATIVE PERCENT (BEAKER) (test 1 % auyy=067) NEUTROPHILS ABSOLUTE COUNT (BEAKER) (test 3.21 K/ L 1.80-8.00 euyb=270) LYMPHOCYTES ABSOLUTE COUNT (BEAKER) (test 0.75 K/ L 1.48-4.50 lljx=204) MONOCYTES ABSOLUTE COUNT (BEAKER) (test snbw=771) 0.57 K/ L 0.00-1.30 EOSINOPHILS ABSOLUTE COUNT (BEAKER) (test 0.19 K/ L 0.00-0.50 wtua=641) BASOPHILS ABSOLUTE COUNT (BEAKER) (test rguk=048) 0.03 K/ L 0.00-0.20 0.00PROTHROMBIN [id number] 05:56:00 Test Item Value Reference Range Comments PROTIME (BEAKER) (test yhth=386) 26.4 seconds 11.7-14.7 INR (BEAKER) (test edep=779) 2.4 <=5.9 RECOMMENDED COUMADIN/WARFARIN INR THERAPY RANGESSTANDARD DOSE: 2.0 - 3.0 Includes: PROPHYLAXIS forvenous thrombosis, systemic embolization; TREATMENT for venous thrombosis and/or pulmonary embolus.HIGH RISK: Target INR is 2.5-3.5 for patients with mechanical heart valves.BASIC METABOLIC [id number] 04:44: 00 Test Item Value Reference Range Comments SODIUM (BEAKER) (test 134 meq/L 136-145 jlbz=625) POTASSIUM (BEAKER) (test 3.6 meq/L 3.5-5.1 skmh=838) CHLORIDE (BEAKER) (test 108 meq/L 98-107 buwk=496) CO2 (BEAKER) (test 19 meq/L 22-29 ptko=273) BLOOD UREA NITROGEN 12 mg/dL 7-21 (BEAKER) (test pbcl=198) CREATININE (BEAKER) (test 1.32 mg/dL 0.57-1.25 cpra=654) GLUCOSE RANDOM (BEAKER) 82 mg/dL 70-105 (test ogjo=450) CALCIUM (BEAKER) (test 7.9 mg/dL 8.4-10.2 yyyt=913) EGFR (BEAKER) (test 57 mL/min/1.73 sq m ESTIMATED GFR IS NOT etsj=9967) ACCURATE CREATININE CLEARANCE IN PREDICTING GLOMERULAR FILTRATION RATE. ESTIMATED GFR IS NOT APPLICABLE FOR DIALYSIS PATIENTS. Specimen moderately ictericHEPATIC FUNCTION [id number] 04:42:00 Test Item Value Reference Range Comments TOTAL PROTEIN (BEAKER) (test nhga=056) 5.8 gm/dL 6.0-8.3 ALBUMIN (BEAKER) (test xlgy=2039) 3.1 g/dL 3.5-5.0 BILIRUBIN TOTAL (BEAKER) (test pjlu=794) 5.1 mg/dL 0.2-1.2 BILIRUBIN DIRECT (BEAKER) (test osck=859) 2.7 mg/dL 0.1-0.5 ALKALINE PHOSPHATASE (BEAKER) (test vvyj=877) 51 U/L 40-150 AST (SGOT) (BEAKER) (test szkv=963) 27 U/L 5-34 ALT (SGPT) (BEAKER) (test xbip=132) 7 U/L 6-55 Specimen moderately ictericCBC W/PLT COUNT & AUTO [id number] 04: 35:00 Test Item Value Reference Range Comments WHITE BLOOD CELL COUNT (BEAKER) (test vpgt=683) 4.6 K/ L 4.0-10.0 RED BLOOD CELL COUNT (BEAKER) (test ngrn=229) 2.06 M/ L 4.20-5.80 HEMOGLOBIN (BEAKER) (test uzhh=644) 7.2 GM/DL 13.0-16.8 HEMATOCRIT (BEAKER) (test xqdg=809) 21.5 % 40.0-50.0 MEAN CORPUSCULAR VOLUME (BEAKER) (test kytn=684) 104.0 fL 82.0-98.0 MEAN CORPUSCULAR HEMOGLOBIN (BEAKER) (test 35.0 pg 27.0-33.0 dzmr=878) MEAN CORPUSCULAR HEMOGLOBIN CONC (BEAKER) (test 33.6 GM/DL 32.0-36.0 fnft=142) RED CELL DISTRIBUTION WIDTH (BEAKER) (test 13.4 % 10.3-14.2 tcbm=369) PLATELET COUNT (BEAKER) (test wfau=873) 76 K/CU MM 150-430 MEAN PLATELET VOLUME (BEAKER) (test cehw=058) 6.5 fL 6.5-10.5 NUCLEATED RED BLOOD CELLS (BEAKER) (test 0 /100 WBC 0-0 cxza=742) NEUTROPHILS RELATIVE PERCENT (BEAKER) (test 64 % ifiq=973) LYMPHOCYTES RELATIVE PERCENT (BEAKER) (test 16 % nbhs=239) MONOCYTES RELATIVE PERCENT (BEAKER) (test 16 % mesp=538) EOSINOPHILS RELATIVE PERCENT (BEAKER) (test 4 % hyrg=836) BASOPHILS RELATIVE PERCENT (BEAKER) (test 1 % aowo=161) NEUTROPHILS ABSOLUTE COUNT (BEAKER) (test 2.89 K/ L 1.80-8.00 imqx=636) LYMPHOCYTES ABSOLUTE COUNT (BEAKER) (test 0.72 K/ L 1.48-4.50 txsr=364) MONOCYTES ABSOLUTE COUNT (BEAKER) (test luly=349) 0.71 K/ L 0.00-1.30 EOSINOPHILS ABSOLUTE COUNT (BEAKER) (test 0.20 K/ L 0.00-0.50 szwz=338) BASOPHILS ABSOLUTE COUNT (BEAKER) (test rptl=242) 0.03 K/ L 0.00-0.20 0.00PROTHROMBIN [id number] 04:33:00 Test Item Value Reference Range Comments PROTIME (BEAKER) (test fwkv=725) 30.2 seconds 11.7-14.7 INR (BEAKER) (test rowk=699) 2.9 <=5.9 RECOMMENDED COUMADIN/WARFARIN INR THERAPY RANGESSTANDARD DOSE: 2.0 - 3.0 Includes: PROPHYLAXIS forvenous thrombosis, systemic embolization; TREATMENT for venous thrombosis and/or pulmonary embolus.HIGH RISK: Target INR is 2.5-3.5 for patients with mechanical heart valves.VANCOMYCIN LEVEL, [id number] 17: 04:00 Test Item Value Reference Range Comments VANCOMYCIN TROUGH (BEAKER) (test vcds=779) 12.2 ug/mL 10.0-20.0 URINE [id number] 14:25:00 Test Item Value Reference Range Comments CULTURE (BEAKER) (test pkuu=7337) No growth TSH/FREE T4 IF [id number] 14:22:00 Test Item Value Reference Range Comments THYROID STIMULATING HORMONE (BEAKER) (test 3.53 uIU/mL 0.35-4.94 ycvr=300) URINE [id number] 11:43:00 Test Item Value Reference Range Comments CULTURE (BEAKER) (test bkag=4780) No growth CBC W/PLT COUNT & AUTO [id number] 07:55:00 Test Item Value Reference Range Comments WHITE BLOOD CELL COUNT (BEAKER) (test mbsv=770) 4.5 K/ L 4.0-10.0 RED BLOOD CELL COUNT (BEAKER) (test iuxu=197) 2.06 M/ L 4.20-5.80 HEMOGLOBIN (BEAKER) (test xrvd=254) 7.1 GM/DL 13.0-16.8 HEMATOCRIT (BEAKER) (test ufbw=292) 21.5 % 40.0-50.0 MEAN CORPUSCULAR VOLUME (BEAKER) (test twed=951) 104.0 fL 82.0-98.0 MEAN CORPUSCULAR HEMOGLOBIN (BEAKER) (test 34.5 pg 27.0-33.0 rznv=770) MEAN CORPUSCULAR HEMOGLOBIN CONC (BEAKER) (test 33.1 GM/DL 32.0-36.0 drwh=289) RED CELL DISTRIBUTION WIDTH (BEAKER) (test 13.4 % 10.3-14.2 ibbi=339) PLATELET COUNT (BEAKER) (test jzdz=763) 79 K/CU MM 150-430 MEAN PLATELET VOLUME (BEAKER) (test jjtx=865) 6.8 fL 6.5-10.5 NUCLEATED RED BLOOD CELLS (BEAKER) (test 0 /100 WBC 0-0 pekt=230) NEUTROPHILS RELATIVE PERCENT (BEAKER) (test 64 % owqa=274) LYMPHOCYTES RELATIVE PERCENT (BEAKER) (test 16 % ttew=003) MONOCYTES RELATIVE PERCENT (BEAKER) (test 15 % pevv=415) EOSINOPHILS RELATIVE PERCENT (BEAKER) (test 5 % nisb=699) BASOPHILS RELATIVE PERCENT (BEAKER) (test 0 % cmrv=980) NEUTROPHILS ABSOLUTE COUNT (BEAKER) (test 2.88 K/ L 1.80-8.00 cvbv=489) LYMPHOCYTES ABSOLUTE COUNT (BEAKER) (test 0.73 K/ L 1.48-4.50 otnu=732) MONOCYTES ABSOLUTE COUNT (BEAKER) (test yakk=766) 0.68 K/ L 0.00-1.30 EOSINOPHILS ABSOLUTE COUNT (BEAKER) (test 0.23 K/ L 0.00-0.50 lulr=105) BASOPHILS ABSOLUTE COUNT (BEAKER) (test chkt=837) 0.02 K/ L 0.00-0.20 0.00BASI METABOLIC [id number] 05:58:00 Test Item Value Reference Range Comments SODIUM (BEAKER) (test 137 meq/L 136-145 rilh=678) POTASSIUM (BEAKER) (test 3.7 meq/L 3.5-5.1 cdmt=280) CHLORIDE (BEAKER) (test 110 meq/L 98-107 tteh=144) CO2 (BEAKER) (test 19 meq/L 22-29 fxjq=996) BLOOD UREA NITROGEN 12 mg/dL 7-21 (BEAKER) (test evxg=147) CREATININE (BEAKER) (test 1.29 mg/dL 0.57-1.25 wplz=953) GLUCOSE RANDOM (BEAKER) 80 mg/dL 70-105 (test mlyp=083) CALCIUM (BEAKER) (test 8.1 mg/dL 8.4-10.2 iqnr=882) EGFR (BEAKER) (test 59 mL/min/1.73 sq m ESTIMATED GFR IS NOT cqdr=6479) ACCURATE CREATININE CLEARANCE IN PREDICTING GLOMERULAR FILTRATION RATE. ESTIMATED GFR IS NOT APPLICABLE FOR DIALYSIS PATIENTS. Specimen moderately ictericHEPATIC FUNCTION [id number] 05:58:00 Test Item Value Reference Range Comments TOTAL PROTEIN (BEAKER) (test zico=543) 5.9 gm/dL 6.0-8.3 ALBUMIN (BEAKER) (test agfx=6773) 3.4 g/dL 3.5-5.0 BILIRUBIN TOTAL (BEAKER) (test bohi=922) 5.6 mg/dL 0.2-1.2 BILIRUBIN DIRECT (BEAKER) (test djrx=597) 2.6 mg/dL 0.1-0.5 ALKALINE PHOSPHATASE (BEAKER) (test jwvz=564) 50 U/L 40-150 AST (SGOT) (BEAKER) (test zigp=527) 30 U/L 5-34 ALT (SGPT) (BEAKER) (test icty=073) 9 U/L 6-55 Specimen moderately ictericPROTHROMBIN TIME/[id number] 05:31:00 Test Item Value Reference Range Comments PROTIME (BEAKER) (test jxfp=573) 29.0 seconds 11.7-14.7 INR (BEAKER) (test xocz=082) 2.7 <=5.9 RECOMMENDED COUMADIN/WARFARIN INR THERAPY RANGESSTANDARD DOSE: 2.0 - 3.0 Includes: PROPHYLAXIS forvenous thrombosis, systemic embolization; TREATMENT for venous thrombosis and/or pulmonary embolus.HIGH RISK: Target INR is 2.5-3.5 for patients with mechanical heart valves.ANAEROBIC [id number] 05:15:00 Test Item Value Reference Range Comments CULTURE (BEAKER) (test zcab=7282) No anaerobes isolated BLOOD [id number] 00:00:00 Test Item Value Reference Range Comments CULTURE (BEAKER) (test hvsy=7955) No growth in 5 days BLOOD [id number] 00:00:00 Test Item Value Reference Range Comments CULTURE (BEAKER) (test iibb=7004) No growth in 5 days URINALYSIS W/ REFLEX URINE [id number] 08:28:00 Test Item Value Reference Range Comments COLOR (BEAKER) (test gsgg=015) Yellow CLARITY (BEAKER) (test trfe=349) Clear SPECIFIC GRAVITY UA (BEAKER) (test zgpq=317) 1.006 1.001-1.035 PH UA (BEAKER) (test mgrm=244) 6.5 5.0-8.0 PROTEIN UA (BEAKER) (test pbjr=968) Negative Negative GLUCOSE UA (BEAKER) (test naiu=178) Negative Negative KETONES UA (BEAKER) (test eczc=903) Negative Negative BILIRUBIN UA (BEAKER) (test xjjr=606) Negative Negative BLOOD UA (BEAKER) (test lguw=209) Negative Negative NITRITE UA (BEAKER) (test gnwu=855) Negative Negative LEUKOCYTE ESTERASE UA (BEAKER) (test lwdl=213) Small Negative UROBILINOGEN UA (BEAKER) (test xmrl=292) 0.2 mg/dL 0.2-1.0 RBC UA (BEAKER) (test zfvi=117) 1 /HPF WBC UA (BEAKER) (test ccak=712) 6 /HPF BACTERIA (BEAKER) (test adkk=570) Rare SOURCE(BEAKER) (test ajnd=3870) CBC W/PLT COUNT & AUTO [id number] 07:21:00 Test Item Value Reference Range Comments WHITE BLOOD CELL COUNT (BEAKER) (test bcyk=201) 5.9 K/ L 4.0-10.0 RED BLOOD CELL COUNT (BEAKER) (test iiae=798) 2.12 M/ L 4.20-5.80 HEMOGLOBIN (BEAKER) (test zayp=060) 7.3 GM/DL 13.0-16.8 HEMATOCRIT (BEAKER) (test zzji=131) 22.2 % 40.0-50.0 MEAN CORPUSCULAR VOLUME (BEAKER) (test cunp=087) 105.0 fL 82.0-98.0 MEAN CORPUSCULAR HEMOGLOBIN (BEAKER) (test 34.2 pg 27.0-33.0 jnyi=683) MEAN CORPUSCULAR HEMOGLOBIN CONC (BEAKER) (test 32.7 GM/DL 32.0-36.0 dqym=731) RED CELL DISTRIBUTION WIDTH (BEAKER) (test 13.1 % 10.3-14.2 recj=152) PLATELET COUNT (BEAKER) (test ftup=851) 80 K/CU MM 150-430 MEAN PLATELET VOLUME (BEAKER) (test catd=886) 6.5 fL 6.5-10.5 NUCLEATED RED BLOOD CELLS (BEAKER) (test 0 /100 WBC 0-0 sftz=165) NEUTROPHILS RELATIVE PERCENT (BEAKER) (test 67 % wcqo=948) LYMPHOCYTES RELATIVE PERCENT (BEAKER) (test 14 % zqkw=247) MONOCYTES RELATIVE PERCENT (BEAKER) (test 14 % nhqh=580) EOSINOPHILS RELATIVE PERCENT (BEAKER) (test 4 % hckz=914) BASOPHILS RELATIVE PERCENT (BEAKER) (test 0 % omdp=640) NEUTROPHILS ABSOLUTE COUNT (BEAKER) (test 3.97 K/ L 1.80-8.00 vrjq=289) LYMPHOCYTES ABSOLUTE COUNT (BEAKER) (test 0.85 K/ L 1.48-4.50 wirr=993) MONOCYTES ABSOLUTE COUNT (BEAKER) (test drck=860) 0.81 K/ L 0.00-1.30 EOSINOPHILS ABSOLUTE COUNT (BEAKER) (test 0.25 K/ L 0.00-0.50 sskm=239) BASOPHILS ABSOLUTE COUNT (BEAKER) (test gucw=524) 0.03 K/ L 0.00-0.20 [id number] 06:35:00 Test Item Value Reference Range Comments PHOSPHORUS (BEAKER) (test yvcp=509) 3.5 mg/dL 2.3-4.7 [id number] 06:35:00 Test Item Value Reference Range Comments MAGNESIUM (BEAKER) (test ajec=535) 1.7 mg/dL 1.6-2.6 BASIC METABOLIC [id number] 06:35:00 Test Item Value Reference Range Comments SODIUM (BEAKER) (test 137 meq/L 136-145 fwwj=905) POTASSIUM (BEAKER) (test 4.0 meq/L 3.5-5.1 nulq=304) CHLORIDE (BEAKER) (test 109 meq/L 98-107 wbgc=755) CO2 (BEAKER) (test 20 meq/L 22-29 msad=658) BLOOD UREA NITROGEN 13 mg/dL 7-21 (BEAKER) (test zejd=951) CREATININE (BEAKER) (test 1.56 mg/dL 0.57-1.25 hpvx=274) GLUCOSE RANDOM (BEAKER) 85 mg/dL 70-105 (test nvfz=839) CALCIUM (BEAKER) (test 8.4 mg/dL 8.4-10.2 aqme=124) EGFR (BEAKER) (test 47 mL/min/1.73 sq m ESTIMATED GFR IS NOT xoyh=5336) ACCURATE CREATININE CLEARANCE IN PREDICTING GLOMERULAR FILTRATION RATE. ESTIMATED GFR IS NOT APPLICABLE FOR DIALYSIS PATIENTS. Specimen moderately ictericHEPATIC FUNCTION [id number] 06:35:00 Test Item Value Reference Range Comments TOTAL PROTEIN (BEAKER) (test plbq=753) 6.5 gm/dL 6.0-8.3 ALBUMIN (BEAKER) (test ghfn=6908) 3.8 g/dL 3.5-5.0 BILIRUBIN TOTAL (BEAKER) (test smce=000) 6.1 mg/dL 0.2-1.2 BILIRUBIN DIRECT (BEAKER) (test simk=948) 2.9 mg/dL 0.1-0.5 ALKALINE PHOSPHATASE (BEAKER) (test qjvj=137) 54 U/L 40-150 AST (SGOT) (BEAKER) (test fhqe=243) 28 U/L 5-34 ALT (SGPT) (BEAKER) (test mbcf=356) 7 U/L 6-55 Specimen moderately ictericPROTHROMBIN [id number] 06:06:00 Test Item Value Reference Range Comments PROTIME (BEAKER) (test pzuq=009) 26.1 seconds 11.7-14.7 INR (BEAKER) (test wsyt=065) 2.4 <=5.9 RECOMMENDED COUMADIN/WARFARIN INR THERAPY RANGESSTANDARD DOSE: 2.0 - 3.0 Includes: PROPHYLAXIS forvenous thrombosis, systemic embolization; TREATMENT for venous thrombosis and/or pulmonary embolus.HIGH RISK: Target INR is 2.5-3.5 for patients with mechanical heart valves.CALCIUM, [id number] 06:06:00 Test Item Value Reference Range Comments CALCIUM IONIZED (BEAKER) (test neiy=104) 1.06 mmol/L 1.12-1.27 PH, BLOOD (BEAKER) (test jrmb=0083) 7.46 SURGICALLY OBTAINED CULTURE + GRAM [id number] 23:51:00 Test Item Value Reference Range Comments CULTURE (BEAKER) (test wfve=8266) No growth GRAM STAIN RESULT (BEAKER) (test 1+ WBCs mdiq=2618) GRAM STAIN RESULT (BEAKER) (test No organisms seen tthm=80468) BODY FLUID CULTURE + GRAM [id number] 23:42:00 Test Item Value Reference Range Comments CULTURE (BEAKER) (test fdur=4134) No growth GRAM STAIN RESULT (BEAKER) (test 1+ WBCs xetw=3348) GRAM STAIN RESULT (BEAKER) (test No organisms seen cacr=39185) BODY FLUID CELL COUNT WITH [id number] 19:59:00 Test Item Value Reference Range Comments APPEARANCE FLUID (BEAKER) (test gepd=852) Hazy Clear COLOR FLUID (BEAKER) (test ivhx=003) Yellow Colorless, Straw RBC FLUID (BEAKER) (test qqmk=804) 2435 /cu mm <=1 ADJUSTED WBC FLUID (BEAKER) (test lhfb=2915) 441 /cu mm <=5 LINING CELLS (BEAKER) (test wxmj=6937) 9 /cu mm <=1 NEUTROPHILS FLUID (BEAKER) (test kzuq=2819) 16 % LYMPHS FLUID (BEAKER) (test kpzp=898) 10 % MONO/MACROPHAGE FLUID (BEAKER) (test cwmk=119) 74 % EOSINOPHILS FLUID (BEAKER) (test vmfm=941) 0 % BASO FLUID (BEAKER) (test enua=350) 0 % CONTAINER BODY FLUID (BEAKER) (test zxtb=7346) EDTA Tube [id number] 11:01:00 Test Item Value Reference Range Comments PROCALCITONIN (BEAKER) (test dinl=1258) 0.25 ng/mL <0.05 SEPSIS RISK (ng/mL)Low: 0.05-0.50Intermediate: 0.51-2.00High: & gt;=2.01CBC W/PLT COUNT & AUTO [id number] 08:40:00 Test Item Value Reference Range Comments WHITE BLOOD CELL COUNT (BEAKER) (test zadm=069) 6.3 K/ L 4.0-10.0 RED BLOOD CELL COUNT (BEAKER) (test ronc=176) 2.07 M/ L 4.20-5.80 HEMOGLOBIN (BEAKER) (test onjq=136) 7.1 GM/DL 13.0-16.8 HEMATOCRIT (BEAKER) (test xxmv=214) 21.9 % 40.0-50.0 MEAN CORPUSCULAR VOLUME (BEAKER) (test cksl=779) 106.0 fL 82.0-98.0 MEAN CORPUSCULAR HEMOGLOBIN (BEAKER) (test 34.1 pg 27.0-33.0 xycm=647) MEAN CORPUSCULAR HEMOGLOBIN CONC (BEAKER) (test 32.2 GM/DL 32.0-36.0 zrxq=826) RED CELL DISTRIBUTION WIDTH (BEAKER) (test 13.1 % 10.3-14.2 dfil=849) PLATELET COUNT (BEAKER) (test wpyi=211) 78 K/CU MM 150-430 MEAN PLATELET VOLUME (BEAKER) (test xymj=644) 6.6 fL 6.5-10.5 NUCLEATED RED BLOOD CELLS (BEAKER) (test 0 /100 WBC 0-0 fuje=166) NEUTROPHILS RELATIVE PERCENT (BEAKER) (test 73 % iqch=250) LYMPHOCYTES RELATIVE PERCENT (BEAKER) (test 10 % tufx=642) MONOCYTES RELATIVE PERCENT (BEAKER) (test 13 % iklb=409) EOSINOPHILS RELATIVE PERCENT (BEAKER) (test 4 % dtmt=398) BASOPHILS RELATIVE PERCENT (BEAKER) (test 0 % smui=427) NEUTROPHILS ABSOLUTE COUNT (BEAKER) (test 4.60 K/ L 1.80-8.00 yzsv=306) LYMPHOCYTES ABSOLUTE COUNT (BEAKER) (test 0.64 K/ L 1.48-4.50 nvwt=107) MONOCYTES ABSOLUTE COUNT (BEAKER) (test dokx=885) 0.81 K/ L 0.00-1.30 EOSINOPHILS ABSOLUTE COUNT (BEAKER) (test 0.23 K/ L 0.00-0.50 njkz=838) BASOPHILS ABSOLUTE COUNT (BEAKER) (test zlzi=028) 0.01 K/ L 0.00-0.20 [id number] 06:50:00 Test Item Value Reference Range Comments PHOSPHORUS (BEAKER) (test abfw=406) 3.0 mg/dL 2.3-4.7 [id number] 06:50:00 Test Item Value Reference Range Comments MAGNESIUM (BEAKER) (test qgfb=933) 1.9 mg/dL 1.6-2.6 BASIC METABOLIC [id number] 06:50:00 Test Item Value Reference Range Comments SODIUM (BEAKER) (test 135 meq/L 136-145 foqq=105) POTASSIUM (BEAKER) (test 4.2 meq/L 3.5-5.1 vyve=417) CHLORIDE (BEAKER) (test 106 meq/L 98-107 ipfy=871) CO2 (BEAKER) (test 21 meq/L 22-29 vthx=002) BLOOD UREA NITROGEN 19 mg/dL 7-21 (BEAKER) (test woag=278) CREATININE (BEAKER) (test 1.62 mg/dL 0.57-1.25 ojib=188) GLUCOSE RANDOM (BEAKER) 98 mg/dL 70-105 (test upsy=821) CALCIUM (BEAKER) (test 8.6 mg/dL 8.4-10.2 uqxo=979) EGFR (BEAKER) (test 45 mL/min/1.73 sq m ESTIMATED GFR IS NOT mmss=0683) ACCURATE CREATININE CLEARANCE IN PREDICTING GLOMERULAR FILTRATION RATE. ESTIMATED GFR IS NOT APPLICABLE FOR DIALYSIS PATIENTS. Specimen moderately ictericHEPATIC FUNCTION [id number] 06:50:00 Test Item Value Reference Range Comments TOTAL PROTEIN (BEAKER) (test ygys=059) 6.3 gm/dL 6.0-8.3 ALBUMIN (BEAKER) (test iuvh=4182) 3.7 g/dL 3.5-5.0 BILIRUBIN TOTAL (BEAKER) (test rtfk=201) 6.2 mg/dL 0.2-1.2 BILIRUBIN DIRECT (BEAKER) (test ahvm=539) 2.8 mg/dL 0.1-0.5 ALKALINE PHOSPHATASE (BEAKER) (test oqmi=891) 54 U/L 40-150 AST (SGOT) (BEAKER) (test ubnp=577) 29 U/L 5-34 ALT (SGPT) (BEAKER) (test mxdn=897) 8 U/L 6-55 Specimen moderately ictericCALCIUM, [id number] 06:48:00 Test Item Value Reference Range Comments CALCIUM IONIZED (BEAKER) (test moyf=529) 1.12 mmol/L 1.12-1.27 PH, BLOOD (BEAKER) (test cayj=6645) 7.33 PROTHROMBIN [id number] 06:24:00 Test Item Value Reference Range Comments PROTIME (BEAKER) (test muzx=796) 25.4 seconds 11.7-14.7 INR (BEAKER) (test wvve=577) 2.3 <=5.9 RECOMMENDED COUMADIN/WARFARIN INR THERAPY RANGESSTANDARD DOSE: 2.0 - 3.0 Includes: PROPHYLAXIS forvenous thrombosis, systemic embolization; TREATMENT for venous thrombosis and/or pulmonary embolus.HIGH RISK: Target INR is 2.5-3.5 for patients with mechanical heart valves.[id number] 11:17:00 Test Item Value Reference Range Comments FIBRINOGEN LEVEL (BEAKER) (test wmus=771) 115 mg/dl 225-434 CALCIUM, [id number] 06:04:00 Test Item Value Reference Range Comments CALCIUM IONIZED (BEAKER) (test tfug=118) 1.08 mmol/L 1.12-1.27 PH, BLOOD (BEAKER) (test pjfg=0547) 7.41 CBC W/PLT COUNT & AUTO [id number] 05:28:00 Test Item Value Reference Range Comments WHITE BLOOD CELL COUNT (BEAKER) (test eypm=912) 5.6 K/ L 4.0-10.0 RED BLOOD CELL COUNT (BEAKER) (test qubs=164) 2.00 M/ L 4.20-5.80 HEMOGLOBIN (BEAKER) (test nyxx=634) 7.2 GM/DL 13.0-16.8 HEMATOCRIT (BEAKER) (test ipcl=256) 21.2 % 40.0-50.0 MEAN CORPUSCULAR VOLUME (BEAKER) (test vuiz=028) 106.0 fL 82.0-98.0 MEAN CORPUSCULAR HEMOGLOBIN (BEAKER) (test 36.0 pg 27.0-33.0 mtih=925) MEAN CORPUSCULAR HEMOGLOBIN CONC (BEAKER) (test 34.0 GM/DL 32.0-36.0 gljt=599) RED CELL DISTRIBUTION WIDTH (BEAKER) (test 13.9 % 10.3-14.2 amnc=221) PLATELET COUNT (BEAKER) (test lual=993) 74 K/CU MM 150-430 MEAN PLATELET VOLUME (BEAKER) (test dpza=286) 6.6 fL 6.5-10.5 NUCLEATED RED BLOOD CELLS (BEAKER) (test 0 /100 WBC 0-0 qthq=284) NEUTROPHILS RELATIVE PERCENT (BEAKER) (test 66 % hayd=670) LYMPHOCYTES RELATIVE PERCENT (BEAKER) (test 14 % cgri=624) MONOCYTES RELATIVE PERCENT (BEAKER) (test 13 % hwpw=510) EOSINOPHILS RELATIVE PERCENT (BEAKER) (test 7 % ypuu=428) BASOPHILS RELATIVE PERCENT (BEAKER) (test 0 % ojez=841) NEUTROPHILS ABSOLUTE COUNT (BEAKER) (test 3.67 K/ L 1.80-8.00 ckbb=573) LYMPHOCYTES ABSOLUTE COUNT (BEAKER) (test 0.80 K/ L 1.48-4.50 jckl=067) MONOCYTES ABSOLUTE COUNT (BEAKER) (test ppsb=893) 0.69 K/ L 0.00-1.30 EOSINOPHILS ABSOLUTE COUNT (BEAKER) (test 0.38 K/ L 0.00-0.50 qdkh=692) BASOPHILS ABSOLUTE COUNT (BEAKER) (test tnvi=293) 0.02 K/ L 0.00-0.20 0.00PROTHROMBIN [id number] 05:11:00 Test Item Value Reference Range Comments PROTIME (BEAKER) (test hfjj=648) 25.9 seconds 11.7-14.7 INR (BEAKER) (test ysuz=950) 2.4 <=5.9 RECOMMENDED COUMADIN/WARFARIN INR THERAPY RANGESSTANDARD DOSE: 2.0 - 3.0 Includes: PROPHYLAXIS forvenous thrombosis, systemic embolization; TREATMENT for venous thrombosis and/or pulmonary embolus.HIGH RISK: Target INR is 2.5-3.5 for patients with mechanical heart valves.[id number] 05:03:00 Test Item Value Reference Range Comments PHOSPHORUS (BEAKER) (test oiab=753) 3.5 mg/dL 2.3-4.7 [id number] 05:03:00 Test Item Value Reference Range Comments MAGNESIUM (BEAKER) (test vqbt=952) 1.7 mg/dL 1.6-2.6 BASIC METABOLIC [id number] 05:03:00 Test Item Value Reference Range Comments SODIUM (BEAKER) (test 135 meq/L 136-145 xnka=677) POTASSIUM (BEAKER) (test 4.0 meq/L 3.5-5.1 vksn=075) CHLORIDE (BEAKER) (test 107 meq/L 98-107 cfqa=179) CO2 (BEAKER) (test 20 meq/L 22-29 hrhe=207) BLOOD UREA NITROGEN 22 mg/dL 7-21 (BEAKER) (test repc=403) CREATININE (BEAKER) (test 1.77 mg/dL 0.57-1.25 sbih=589) GLUCOSE RANDOM (BEAKER) 83 mg/dL 70-105 (test xhmg=147) CALCIUM (BEAKER) (test 8.3 mg/dL 8.4-10.2 khyt=872) EGFR (BEAKER) (test 41 mL/min/1.73 sq m ESTIMATED GFR IS NOT kssv=5087) ACCURATE CREATININE CLEARANCE IN PREDICTING GLOMERULAR FILTRATION RATE. ESTIMATED GFR IS NOT APPLICABLE FOR DIALYSIS PATIENTS. Specimen moderately ictericHEPATIC FUNCTION [id number] 05:03:00 Test Item Value Reference Range Comments TOTAL PROTEIN (BEAKER) (test rvxx=715) 6.2 gm/dL 6.0-8.3 ALBUMIN (BEAKER) (test qkjb=1910) 3.7 g/dL 3.5-5.0 BILIRUBIN TOTAL (BEAKER) (test bqev=025) 6.0 mg/dL 0.2-1.2 BILIRUBIN DIRECT (BEAKER) (test yzri=893) 2.6 mg/dL 0.1-0.5 ALKALINE PHOSPHATASE (BEAKER) (test xcuy=183) 48 U/L 40-150 AST (SGOT) (BEAKER) (test dnvm=767) 26 U/L 5-34 ALT (SGPT) (BEAKER) (test jmny=900) 8 U/L 6-55 Specimen moderately ictericURINE [id number] 14:42:00 Test Item Value Reference Range Comments CULTURE (BEAKER) (test adlp=6578) No growth ANTI-NUCLEAR ANTIBODY (CHERYL)[id number] 13:32:00 Test Item Value Reference Range Comments ANTI-NUCLEAR ANTIBODY (CHERYL) (BEAKER) (test Negative Negative nury=319) PLATELET [id number] 06:30:00 Test Item Value Reference Range Comments PLATELET COUNT (BEAKER) (test alvl=742) 104 K/CU MM 150-430 [id number] 06:22:00 Test Item Value Reference Range Comments FIBRINOGEN LEVEL (BEAKER) (test rmtp=697) 106 mg/dl 225-434 [id number] 06:16:00 Test Item Value Reference Range Comments PARTIAL THROMBOPLASTIN TIME (BEAKER) (test 48.1 seconds 22.5-36.0 uuto=707) PROTHROMBIN [id number] 06:15:00 Test Item Value Reference Range Comments PROTIME (BEAKER) (test jovw=978) 23.5 seconds 11.7-14.7 INR (BEAKER) (test wsaz=473) 2.1 <=5.9 RECOMMENDED COUMADIN/WARFARIN INR THERAPY RANGESSTANDARD DOSE: 2.0 - 3.0 Includes: PROPHYLAXIS forvenous thrombosis, systemic embolization; TREATMENT for venous thrombosis and/or pulmonary embolus.HIGH RISK: Target INR is 2.5-3.5 for patients with mechanical heart valves.[id number] 06:12:00 Test Item Value Reference Range Comments MAGNESIUM (BEAKER) (test 2.0 mg/dL 1.6-2.6 Specimen slightly hemolyzed osun=035) [id number] 06:12:00 Test Item Value Reference Range Comments PHOSPHORUS (BEAKER) (test 5.0 mg/dL 2.3-4.7 Specimen slightly hemolyzed nhhl=955) BASIC METABOLIC [id number] 06:12:00 Test Item Value Reference Range Comments SODIUM (BEAKER) (test 135 meq/L 136-145 ucds=704) POTASSIUM (BEAKER) (test 4.7 meq/L 3.5-5.1 Specimen slightly wlmd=211) hemolyzed CHLORIDE (BEAKER) (test 107 meq/L 98-107 naso=748) CO2 (BEAKER) (test 20 meq/L 22-29 neps=562) BLOOD UREA NITROGEN 18 mg/dL 7-21 (BEAKER) (test sohg=745) CREATININE (BEAKER) (test 1.74 mg/dL 0.57-1.25 Specimen slightly ubar=879) hemolyzed GLUCOSE RANDOM (BEAKER) 76 mg/dL 70-105 (test kqqp=664) CALCIUM (BEAKER) (test 8.1 mg/dL 8.4-10.2 qglo=582) EGFR (BEAKER) (test 42 mL/min/1.73 sq m ESTIMATED GFR IS NOT wfrr=1259) ACCURATE CREATININE CLEARANCE IN PREDICTING GLOMERULAR FILTRATION RATE. ESTIMATED GFR IS NOT APPLICABLE FOR DIALYSIS PATIENTS. Specimen moderately ictericHEPATIC FUNCTION [id number] 06:12:00 Test Item Value Reference Range Comments TOTAL PROTEIN (BEAKER) (test 6.6 gm/dL 6.0-8.3 Specimen slightly hemolyzed dhkg=794) ALBUMIN (BEAKER) (test 3.7 g/dL 3.5-5.0 Specimen slightly hemolyzed xsbs=4348) BILIRUBIN TOTAL (BEAKER) (test 5.7 mg/dL 0.2-1.2 Specimen slightly hemolyzed eucv=127) BILIRUBIN DIRECT (BEAKER) (test 2.7 mg/dL 0.1-0.5 Specimen slightly hemolyzed xbtd=174) ALKALINE PHOSPHATASE (BEAKER) 56 U/L 40-150 (test qtxj=480) AST (SGOT) (BEAKER) (test 29 U/L 5-34 Specimen slightly hemolyzed rkat=653) ALT (SGPT) (BEAKER) (test 7 U/L 6-55 Specimen slightly hemolyzed yodv=220) Specimen moderately ictericLACTIC ACID, VENOUS, WHOLE [id number] 06:04:00 Test Item Value Reference Range Comments LACTATE BLOOD VENOUS (2) (BEAKER) (test 1.0 mmol/L 0.5-2.2 pcoi=0300) Effective 02/28/2016: Units/Reference Range ChangeNew: 0.5-2.2 mmol/L Previous: 5 -20 mg/dLSpecimen moderately ictericCALCIUM, [id number] 05:56:00 Test Item Value Reference Range Comments CALCIUM IONIZED (BEAKER) (test yybn=992) 1.00 mmol/L 1.12-1.27 PH, BLOOD (BEAKER) (test wdbt=3169) 7.34 [id number] 21:34:00 Test Item Value Reference Range Comments FIBRINOGEN LEVEL (BEAKER) (test yrss=673) 105 mg/dl 225-434 PLATELET [id number] 20:52:00 Test Item Value Reference Range Comments PLATELET COUNT (BEAKER) (test qiis=979) 77 K/CU MM 150-430 [id number] 20:51:00 Test Item Value Reference Range Comments PROTIME (BEAKER) (test fmvg=361) 21.1 seconds 11.7-14.7 INR (BEAKER) (test axjz=193) 1.8 <=5.9 PARTIAL THROMBOPLASTIN TIME (BEAKER) (test 47.3 seconds 22.5-36.0 kfui=392) RECOMMENDED COUMADIN/WARFARIN INR THERAPY RANGESSTANDARD DOSE: 2.0 - 3.0 Includes: PROPHYLAXIS forvenous thrombosis, systemic embolization; TREATMENT for venous thrombosis and/or pulmonary embolus.HIGH RISK: Target INR is 2.5-3.5 for patients with mechanical heart valves.[id number] 20:51:00 Test Item Value Reference Range Comments PARTIAL THROMBOPLASTIN TIME (BEAKER) (test 47.3 seconds 22.5-36.0 xves=305) PROTHROMBIN [id number] 20:50:00 Test Item Value Reference Range Comments PROTIME (BEAKER) (test cwcx=357) 21.1 seconds 11.7-14.7 INR (BEAKER) (test sqjv=993) 1.8 <=5.9 RECOMMENDED COUMADIN/WARFARIN INR THERAPY RANGESSTANDARD DOSE: 2.0 - 3.0 Includes: PROPHYLAXIS forvenous thrombosis, systemic embolization; TREATMENT for venous thrombosis and/or pulmonary embolus.HIGH RISK: Target INR is 2.5-3.5 for patients with mechanical heart valves.[id number] 19:30:00 Test Item Value Reference Range Comments PARTIAL THROMBOPLASTIN TIME (BEAKER) (test 45.1 seconds 22.5-36.0 picr=495) PROTHROMBIN TIME/[id number] 19:29:00 Test Item Value Reference Range Comments PROTIME (BEAKER) (test tjcv=587) 28.2 seconds 11.7-14.7 INR (BEAKER) (test rsjw=610) 2.6 <=5.9 RECOMMENDED COUMADIN/WARFARIN INR THERAPY RANGESSTANDARD DOSE: 2.0 - 3.0 Includes: PROPHYLAXIS forvenous thrombosis, systemic embolization; TREATMENT for venous thrombosis and/or pulmonary embolus.HIGH RISK: Target INR is 2.5-3.5 for patients with mechanical heart valves.BODY FLUID CELL COUNT WITH [id number] 18:53:00 Test Item Value Reference Range Comments APPEARANCE FLUID (BEAKER) (test zcpm=296) Hazy Clear COLOR FLUID (BEAKER) (test nblk=726) Yellow Colorless, Straw RBC FLUID (BEAKER) (test movy=924) 900 /cu mm <=1 ADJUSTED WBC FLUID (BEAKER) (test ggbp=0641) 306 /cu mm <=5 LINING CELLS (BEAKER) (test lkqw=6416) 64 /cu mm <=1 NEUTROPHILS FLUID (BEAKER) (test bort=4352) 4 % LYMPHS FLUID (BEAKER) (test mcac=507) 18 % MONO/MACROPHAGE FLUID (BEAKER) (test mnvp=390) 78 % EOSINOPHILS FLUID (BEAKER) (test uddb=502) 0 % BASO FLUID (BEAKER) (test saak=186) 0 % CONTAINER BODY FLUID (BEAKER) (test aerw=6419) EDTA Tube [id number] 16:56:00 Test Item Value Reference Range Comments AMYLASE (BEAKER) (test wblu=788) 37 U/L 25-125 Specimen moderately ictericCOMPREHENSIVE METABOLIC [id number] 16:56:00 Test Item Value Reference Range Comments TOTAL PROTEIN (BEAKER) 6.1 gm/dL 6.0-8.3 (test ahsx=438) ALBUMIN (BEAKER) (test 3.2 g/dL 3.5-5.0 kjii=6955) ALKALINE PHOSPHATASE 67 U/L 40-150 (BEAKER) (test ebkq=389) BILIRUBIN TOTAL (BEAKER) 5.7 mg/dL 0.2-1.2 (test nmsf=131) SODIUM (BEAKER) (test 134 meq/L 136-145 rkwu=607) POTASSIUM (BEAKER) (test 3.8 meq/L 3.5-5.1 juhj=594) CHLORIDE (BEAKER) (test 106 meq/L 98-107 jzrq=998) CO2 (BEAKER) (test 19 meq/L 22-29 qzyc=773) BLOOD UREA NITROGEN 18 mg/dL 7-21 (BEAKER) (test pgrm=778) CREATININE (BEAKER) (test 1.52 mg/dL 0.57-1.25 mtzw=785) GLUCOSE RANDOM (BEAKER) 112 mg/dL 70-105 (test wsbz=173) CALCIUM (BEAKER) (test 8.3 mg/dL 8.4-10.2 rvxd=693) AST (SGOT) (BEAKER) (test 28 U/L 5-34 aczj=526) ALT (SGPT) (BEAKER) (test 10 U/L 6-55 nnhk=682) EGFR (BEAKER) (test 49 mL/min/1.73 sq m ESTIMATED GFR IS NOT qdjr=8970) ACCURATE CREATININE CLEARANCE IN PREDICTING GLOMERULAR FILTRATION RATE. ESTIMATED GFR IS NOT APPLICABLE FOR DIALYSIS PATIENTS. Specimen moderately [id number] 16:56:00 Test Item Value Reference Range Comments LIPASE (BEAKER) (test owcq=720) 52 U/L 8-78 Specimen moderately ictericCBC W/PLT COUNT & AUTO [id number] 16: 27:00 Test Item Value Reference Range Comments WHITE BLOOD CELL COUNT (BEAKER) (test gdlp=441) 3.7 K/ L 4.0-10.0 RED BLOOD CELL COUNT (BEAKER) (test tzzd=887) 2.16 M/ L 4.20-5.80 HEMOGLOBIN (BEAKER) (test xrzf=985) 7.8 GM/DL 13.0-16.8 HEMATOCRIT (BEAKER) (test dkkb=288) 23.1 % 40.0-50.0 MEAN CORPUSCULAR VOLUME (BEAKER) (test nytk=066) 107.0 fL 82.0-98.0 MEAN CORPUSCULAR HEMOGLOBIN (BEAKER) (test 36.0 pg 27.0-33.0 xeyr=354) MEAN CORPUSCULAR HEMOGLOBIN CONC (BEAKER) (test 33.6 GM/DL 32.0-36.0 twio=774) RED CELL DISTRIBUTION WIDTH (BEAKER) (test 13.9 % 10.3-14.2 ywmx=861) PLATELET COUNT (BEAKER) (test hfof=932) 78 K/CU MM 150-430 MEAN PLATELET VOLUME (BEAKER) (test qreu=576) 6.2 fL 6.5-10.5 NUCLEATED RED BLOOD CELLS (BEAKER) (test 0 /100 WBC 0-0 dixu=595) NEUTROPHILS RELATIVE PERCENT (BEAKER) (test 50 % rsbr=151) LYMPHOCYTES RELATIVE PERCENT (BEAKER) (test 25 % ipze=201) MONOCYTES RELATIVE PERCENT (BEAKER) (test 19 % oovz=619) EOSINOPHILS RELATIVE PERCENT (BEAKER) (test 6 % wnjm=974) BASOPHILS RELATIVE PERCENT (BEAKER) (test 1 % jggm=411) NEUTROPHILS ABSOLUTE COUNT (BEAKER) (test 1.82 K/ L 1.80-8.00 zcpk=556) LYMPHOCYTES ABSOLUTE COUNT (BEAKER) (test 0.91 K/ L 1.48-4.50 ekjy=437) MONOCYTES ABSOLUTE COUNT (BEAKER) (test uvzy=172) 0.69 K/ L 0.00-1.30 EOSINOPHILS ABSOLUTE COUNT (BEAKER) (test 0.21 K/ L 0.00-0.50 itps=778) BASOPHILS ABSOLUTE COUNT (BEAKER) (test lqwj=468) 0.02 K/ L 0.00-0.20 0.00HEPATIC FUNCTION [id number] 08:34:00 Test Item Value Reference Range Comments TOTAL PROTEIN (BEAKER) (test xvdu=028) 5.9 gm/dL 6.0-8.3 ALBUMIN (BEAKER) (test cdsc=8361) 3.2 g/dL 3.5-5.0 BILIRUBIN TOTAL (BEAKER) (test mixw=442) 5.4 mg/dL 0.2-1.2 BILIRUBIN DIRECT (BEAKER) (test oesn=788) 2.5 mg/dL 0.1-0.5 ALKALINE PHOSPHATASE (BEAKER) (test zajo=252) 60 U/L 40-150 AST (SGOT) (BEAKER) (test kqtw=867) 28 U/L 5-34 ALT (SGPT) (BEAKER) (test ctxc=909) 10 U/L 6-55 Specimen moderately [id number] 08:16:00 Test Item Value Reference Range Comments PHOSPHORUS (BEAKER) (test ybqp=051) 3.0 mg/dL 2.3-4.7 [id number] 08:16:00 Test Item Value Reference Range Comments MAGNESIUM (BEAKER) (test rtic=412) 1.6 mg/dL 1.6-2.6 BASIC METABOLIC [id number] 08:16:00 Test Item Value Reference Range Comments SODIUM (BEAKER) (test 133 meq/L 136-145 ucpz=301) POTASSIUM (BEAKER) (test 3.6 meq/L 3.5-5.1 oija=851) CHLORIDE (BEAKER) (test 105 meq/L 98-107 lxvj=926) CO2 (BEAKER) (test 20 meq/L 22-29 kdon=004) BLOOD UREA NITROGEN 18 mg/dL 7-21 (BEAKER) (test twob=831) CREATININE (BEAKER) (test 1.54 mg/dL 0.57-1.25 zppx=357) GLUCOSE RANDOM (BEAKER) 70 mg/dL 70-105 (test xirt=903) CALCIUM (BEAKER) (test 8.2 mg/dL 8.4-10.2 jecv=767) EGFR (BEAKER) (test 48 mL/min/1.73 sq m ESTIMATED GFR IS NOT csmz=9329) ACCURATE CREATININE CLEARANCE IN PREDICTING GLOMERULAR FILTRATION RATE. ESTIMATED GFR IS NOT APPLICABLE FOR DIALYSIS PATIENTS. Specimen moderately ictericCBC W/PLT COUNT & AUTO [id number] 08: 06:00 Test Item Value Reference Range Comments WHITE BLOOD CELL COUNT (BEAKER) (test jkbu=662) 3.4 K/ L 4.0-10.0 RED BLOOD CELL COUNT (BEAKER) (test yfdf=197) 2.03 M/ L 4.20-5.80 HEMOGLOBIN (BEAKER) (test phgd=363) 7.3 GM/DL 13.0-16.8 HEMATOCRIT (BEAKER) (test kzpy=885) 21.6 % 40.0-50.0 MEAN CORPUSCULAR VOLUME (BEAKER) (test sapw=624) 106.0 fL 82.0-98.0 MEAN CORPUSCULAR HEMOGLOBIN (BEAKER) (test 35.8 pg 27.0-33.0 fccw=011) MEAN CORPUSCULAR HEMOGLOBIN CONC (BEAKER) (test 33.7 GM/DL 32.0-36.0 imrp=071) RED CELL DISTRIBUTION WIDTH (BEAKER) (test 13.5 % 10.3-14.2 nogp=148) PLATELET COUNT (BEAKER) (test ioyg=801) 82 K/CU MM 150-430 MEAN PLATELET VOLUME (BEAKER) (test pniu=966) 6.7 fL 6.5-10.5 NUCLEATED RED BLOOD CELLS (BEAKER) (test 0 /100 WBC 0-0 boox=770) NEUTROPHILS RELATIVE PERCENT (BEAKER) (test 50 % nrsn=065) LYMPHOCYTES RELATIVE PERCENT (BEAKER) (test 25 % aptb=875) MONOCYTES RELATIVE PERCENT (BEAKER) (test 19 % qsrt=313) EOSINOPHILS RELATIVE PERCENT (BEAKER) (test 5 % wpgc=205) BASOPHILS RELATIVE PERCENT (BEAKER) (test 1 % cuyy=083) NEUTROPHILS ABSOLUTE COUNT (BEAKER) (test 1.69 K/ L 1.80-8.00 mqys=897) LYMPHOCYTES ABSOLUTE COUNT (BEAKER) (test 0.83 K/ L 1.48-4.50 meys=988) MONOCYTES ABSOLUTE COUNT (BEAKER) (test zgxe=960) 0.65 K/ L 0.00-1.30 EOSINOPHILS ABSOLUTE COUNT (BEAKER) (test 0.17 K/ L 0.00-0.50 bycm=586) BASOPHILS ABSOLUTE COUNT (BEAKER) (test xprw=429) 0.04 K/ L 0.00-0.20 0.00PROTHROMBIN [id number] 08:01:00 Test Item Value Reference Range Comments PROTIME (BEAKER) (test gmzq=001) 27.6 seconds 11.7-14.7 INR (BEAKER) (test gtul=277) 2.6 <=5.9 RECOMMENDED COUMADIN/WARFARIN INR THERAPY RANGESSTANDARD DOSE: 2.0 - 3.0 Includes: PROPHYLAXIS forvenous thrombosis, systemic embolization; TREATMENT for venous thrombosis and/or pulmonary embolus.HIGH RISK: Target INR is 2.5-3.5 for patients with mechanical heart valves.CALCIUM, [id number] 07:58:00 Test Item Value Reference Range Comments CALCIUM IONIZED (BEAKER) (test ywiz=602) 1.00 mmol/L 1.12-1.27 PH, BLOOD (BEAKER) (test neba=7636) 7.53 URINALYSIS W/ [id number] 18:42:00 Test Item Value Reference Range Comments COLOR (BEAKER) (test sdih=974) Yellow CLARITY (BEAKER) (test zbiy=352) Clear SPECIFIC GRAVITY UA (BEAKER) (test 1.009 1.001-1.035 sedx=159) PH UA (BEAKER) (test wicx=713) 7.5 5.0-8.0 PROTEIN UA (BEAKER) (test cpwe=114) Negative Negative GLUCOSE UA (BEAKER) (test wezr=238) Negative Negative KETONES UA (BEAKER) (test puxe=850) Negative Negative BILIRUBIN UA (BEAKER) (test txzt=973) Negative Negative BLOOD UA (BEAKER) (test vobh=315) Negative Negative NITRITE UA (BEAKER) (test wtfj=752) Negative Negative LEUKOCYTE ESTERASE UA (BEAKER) (test Negative Negative revj=701) UROBILINOGEN UA (BEAKER) (test ooxo=628) 3.0 mg/dL 0.2-1.0 RBC UA (BEAKER) (test wyig=916) 6 /HPF WBC UA (BEAKER) (test prrp=764) 1 /HPF SOURCE(BEAKER) (test gmfv=6469) Urine, Clean Catch PROTHROMBIN [id number] 15:13:00 Test Item Value Reference Range Comments PROTIME (BEAKER) (test bbbr=411) 31.4 seconds 11.7-14.7 INR (BEAKER) (test aowg=870) 3.0 <=5.9 RECOMMENDED COUMADIN/WARFARIN INR THERAPY RANGESSTANDARD DOSE: 2.0 - 3.0 Includes: PROPHYLAXIS forvenous thrombosis, systemic embolization; TREATMENT for venous thrombosis and/or pulmonary embolus.HIGH RISK: Target INR is 2.5-3.5 for patients with mechanical heart valves.Draw after vitamin K administrationCBC W/PLT COUNT & AUTO [id number] 07:02:00 Test Item Value Reference Range Comments WHITE BLOOD CELL COUNT (BEAKER) (test ziii=650) 3.0 K/ L 4.0-10.0 RED BLOOD CELL COUNT (BEAKER) (test ldds=527) 2.21 M/ L 4.20-5.80 HEMOGLOBIN (BEAKER) (test grao=224) 7.5 GM/DL 13.0-16.8 HEMATOCRIT (BEAKER) (test wplm=042) 23.5 % 40.0-50.0 MEAN CORPUSCULAR VOLUME (BEAKER) (test pqmo=987) 106.0 fL 82.0-98.0 MEAN CORPUSCULAR HEMOGLOBIN (BEAKER) (test 34.0 pg 27.0-33.0 obhg=879) MEAN CORPUSCULAR HEMOGLOBIN CONC (BEAKER) (test 32.0 GM/DL 32.0-36.0 sjzx=115) RED CELL DISTRIBUTION WIDTH (BEAKER) (test 13.0 % 10.3-14.2 fwwt=902) PLATELET COUNT (BEAKER) (test rfij=492) 81 K/CU MM 150-430 MEAN PLATELET VOLUME (BEAKER) (test obmj=705) 6.3 fL 6.5-10.5 NUCLEATED RED BLOOD CELLS (BEAKER) (test 0 /100 WBC 0-0 nshz=557) NEUTROPHILS RELATIVE PERCENT (BEAKER) (test 52 % uvca=584) LYMPHOCYTES RELATIVE PERCENT (BEAKER) (test 24 % hksu=243) MONOCYTES RELATIVE PERCENT (BEAKER) (test 20 % hhnu=865) EOSINOPHILS RELATIVE PERCENT (BEAKER) (test 3 % vwpu=196) BASOPHILS RELATIVE PERCENT (BEAKER) (test 1 % peap=001) NEUTROPHILS ABSOLUTE COUNT (BEAKER) (test 1.53 K/ L 1.80-8.00 oqjt=915) LYMPHOCYTES ABSOLUTE COUNT (BEAKER) (test 0.71 K/ L 1.48-4.50 pfvc=679) MONOCYTES ABSOLUTE COUNT (BEAKER) (test tiue=014) 0.60 K/ L 0.00-1.30 EOSINOPHILS ABSOLUTE COUNT (BEAKER) (test 0.10 K/ L 0.00-0.50 pyca=020) BASOPHILS ABSOLUTE COUNT (BEAKER) (test oohl=464) 0.03 K/ L 0.00-0.20 0.00BASIC METABOLIC [id number] 06:29:00 Test Item Value Reference Range Comments SODIUM (BEAKER) (test 135 meq/L 136-145 cadi=786) POTASSIUM (BEAKER) (test 4.0 meq/L 3.5-5.1 xran=529) CHLORIDE (BEAKER) (test 106 meq/L 98-107 zghn=907) CO2 (BEAKER) (test 22 meq/L 22-29 xefw=092) BLOOD UREA NITROGEN 17 mg/dL 7-21 (BEAKER) (test ukyw=511) CREATININE (BEAKER) (test 1.46 mg/dL 0.57-1.25 xqgx=648) GLUCOSE RANDOM (BEAKER) 75 mg/dL 70-105 (test seit=735) CALCIUM (BEAKER) (test 8.0 mg/dL 8.4-10.2 ansg=708) EGFR (BEAKER) (test 51 mL/min/1.73 sq m ESTIMATED GFR IS NOT tivl=5965) ACCURATE CREATININE CLEARANCE IN PREDICTING GLOMERULAR FILTRATION RATE. ESTIMATED GFR IS NOT APPLICABLE FOR DIALYSIS PATIENTS. Specimen moderately ictericHEPATIC FUNCTION [id number] 06:29:00 Test Item Value Reference Range Comments TOTAL PROTEIN (BEAKER) (test wdea=131) 5.9 gm/dL 6.0-8.3 ALBUMIN (BEAKER) (test xcgh=3472) 3.0 g/dL 3.5-5.0 BILIRUBIN TOTAL (BEAKER) (test qppi=577) 5.4 mg/dL 0.2-1.2 BILIRUBIN DIRECT (BEAKER) (test bcrs=498) 2.7 mg/dL 0.1-0.5 ALKALINE PHOSPHATASE (BEAKER) (test mtwj=015) 65 U/L 40-150 AST (SGOT) (BEAKER) (test ofhg=798) 27 U/L 5-34 ALT (SGPT) (BEAKER) (test hrxn=787) 7 U/L 6-55 Specimen moderately ictericPROTHROMBIN TIME/[id number] 06:23:00 Test Item Value Reference Range Comments PROTIME (BEAKER) (test yvzo=824) 31.2 seconds 11.7-14.7 INR (BEAKER) (test fbjh=263) 3.0 <=5.9 RECOMMENDED COUMADIN/WARFARIN INR THERAPY RANGESSTANDARD DOSE: 2.0 - 3.0 Includes: PROPHYLAXIS forvenous thrombosis, systemic embolization; TREATMENT for venous thrombosis and/or pulmonary embolus.HIGH RISK: Target INR is 2.5-3.5 for patients with mechanical heart valves.CBC W/PLT COUNT & AUTO [id number] 06:26:00 Test Item Value Reference Range Comments WHITE BLOOD CELL COUNT (BEAKER) (test yyas=769) 3.0 K/ L 4.0-10.0 RED BLOOD CELL COUNT (BEAKER) (test vztp=415) 2.16 M/ L 4.20-5.80 HEMOGLOBIN (BEAKER) (test dfst=050) 7.4 GM/DL 13.0-16.8 HEMATOCRIT (BEAKER) (test amga=001) 23.1 % 40.0-50.0 MEAN CORPUSCULAR VOLUME (BEAKER) (test tpma=054) 107.0 fL 82.0-98.0 MEAN CORPUSCULAR HEMOGLOBIN (BEAKER) (test 34.4 pg 27.0-33.0 neah=275) MEAN CORPUSCULAR HEMOGLOBIN CONC (BEAKER) (test 32.1 GM/DL 32.0-36.0 guyf=638) RED CELL DISTRIBUTION WIDTH (BEAKER) (test 13.1 % 10.3-14.2 bkir=024) PLATELET COUNT (BEAKER) (test unda=624) 72 K/CU MM 150-430 MEAN PLATELET VOLUME (BEAKER) (test jwos=000) 6.1 fL 6.5-10.5 NUCLEATED RED BLOOD CELLS (BEAKER) (test 0 /100 WBC 0-0 lpbq=904) NEUTROPHILS RELATIVE PERCENT (BEAKER) (test 58 % sdgt=498) LYMPHOCYTES RELATIVE PERCENT (BEAKER) (test 21 % znzd=670) MONOCYTES RELATIVE PERCENT (BEAKER) (test 15 % fftw=362) EOSINOPHILS RELATIVE PERCENT (BEAKER) (test 4 % tpzh=629) BASOPHILS RELATIVE PERCENT (BEAKER) (test 1 % goyd=593) NEUTROPHILS ABSOLUTE COUNT (BEAKER) (test 1.73 K/ L 1.80-8.00 orxi=044) LYMPHOCYTES ABSOLUTE COUNT (BEAKER) (test 0.64 K/ L 1.48-4.50 lbjn=226) MONOCYTES ABSOLUTE COUNT (BEAKER) (test suyn=433) 0.45 K/ L 0.00-1.30 EOSINOPHILS ABSOLUTE COUNT (BEAKER) (test 0.13 K/ L 0.00-0.50 ssgd=026) BASOPHILS ABSOLUTE COUNT (BEAKER) (test xkzr=049) 0.02 K/ L 0.00-0.20 0.00BASIC METABOLIC [id number] 06:24:00 Test Item Value Reference Range Comments SODIUM (BEAKER) (test 134 meq/L 136-145 jrzx=497) POTASSIUM (BEAKER) (test 3.7 meq/L 3.5-5.1 sxro=196) CHLORIDE (BEAKER) (test 105 meq/L 98-107 scnq=914) CO2 (BEAKER) (test 21 meq/L 22-29 azgf=417) BLOOD UREA NITROGEN 18 mg/dL 7-21 (BEAKER) (test yjih=922) CREATININE (BEAKER) (test 1.53 mg/dL 0.57-1.25 dhes=345) GLUCOSE RANDOM (BEAKER) 103 mg/dL 70-105 (test faej=196) CALCIUM (BEAKER) (test 7.6 mg/dL 8.4-10.2 sqiu=026) EGFR (BEAKER) (test 48 mL/min/1.73 sq m ESTIMATED GFR IS NOT yowq=9492) ACCURATE CREATININE CLEARANCE IN PREDICTING GLOMERULAR FILTRATION RATE. ESTIMATED GFR IS NOT APPLICABLE FOR DIALYSIS PATIENTS. Specimen moderately ictericHEPATIC FUNCTION [id number] 06:19:00 Test Item Value Reference Range Comments TOTAL PROTEIN (BEAKER) (test bzpg=689) 5.6 gm/dL 6.0-8.3 ALBUMIN (BEAKER) (test ajpm=7297) 2.4 g/dL 3.5-5.0 BILIRUBIN TOTAL (BEAKER) (test ohhk=623) 4.8 mg/dL 0.2-1.2 BILIRUBIN DIRECT (BEAKER) (test sksp=426) 2.6 mg/dL 0.1-0.5 ALKALINE PHOSPHATASE (BEAKER) (test mhrq=913) 70 U/L 40-150 AST (SGOT) (BEAKER) (test qhwa=943) 28 U/L 5-34 ALT (SGPT) (BEAKER) (test cfph=945) 11 U/L 6-55 Specimen moderately ictericPROTHROMBIN [id number] 06:00:00 Test Item Value Reference Range Comments PROTIME (BEAKER) (test mhkb=738) 36.7 seconds 11.7-14.7 INR (BEAKER) (test hjsx=138) 3.7 <=5.9 RECOMMENDED COUMADIN/WARFARIN INR THERAPY RANGESSTANDARD DOSE: 2.0 - 3.0 Includes: PROPHYLAXIS forvenous thrombosis, systemic embolization; TREATMENT for venous thrombosis and/or pulmonary embolus.HIGH RISK: Target INR is 2.5-3.5 for patients with mechanical heart valves.BODY FLUID CULTURE + GRAM [id number] 00:51:00 Test Item Value Reference Range Comments CULTURE (BEAKER) (test edoc=9093) No growth GRAM STAIN RESULT (BEAKER) (test 3+ WBCs bdjm=9074) GRAM STAIN RESULT (BEAKER) (test No organisms seen ibdr=80437) BLOOD [id number] 17:08:00 Test Item Value Reference Range Comments CULTURE (BEAKER) (test jkte=6161) No growth in 5 days BLOOD [id number] 17:06:00 Test Item Value Reference Range Comments CULTURE (BEAKER) (test xaqy=0861) No growth in 5 days CBC W/PLT COUNT & AUTO [id number] 07:05:00 Test Item Value Reference Range Comments WHITE BLOOD CELL COUNT (BEAKER) (test zqsn=565) 3.5 K/ L 4.0-10.0 RED BLOOD CELL COUNT (BEAKER) (test mlaq=792) 2.16 M/ L 4.20-5.80 HEMOGLOBIN (BEAKER) (test dutp=617) 7.8 GM/DL 13.0-16.8 HEMATOCRIT (BEAKER) (test xsge=292) 23.9 % 40.0-50.0 MEAN CORPUSCULAR VOLUME (BEAKER) (test owbs=222) 111.0 fL 82.0-98.0 MEAN CORPUSCULAR HEMOGLOBIN (BEAKER) (test 36.3 pg 27.0-33.0 uknk=237) MEAN CORPUSCULAR HEMOGLOBIN CONC (BEAKER) (test 32.8 GM/DL 32.0-36.0 tfyf=122) RED CELL DISTRIBUTION WIDTH (BEAKER) (test 13.9 % 10.3-14.2 hekh=406) PLATELET COUNT (BEAKER) (test sjui=450) 72 K/CU MM 150-430 MEAN PLATELET VOLUME (BEAKER) (test qdnw=875) 6.4 fL 6.5-10.5 NUCLEATED RED BLOOD CELLS (BEAKER) (test 0 /100 WBC 0-0 jpxf=085) NEUTROPHILS RELATIVE PERCENT (BEAKER) (test 51 % dqrc=396) LYMPHOCYTES RELATIVE PERCENT (BEAKER) (test 25 % kghi=688) MONOCYTES RELATIVE PERCENT (BEAKER) (test 18 % dusd=166) EOSINOPHILS RELATIVE PERCENT (BEAKER) (test 6 % xhdt=352) BASOPHILS RELATIVE PERCENT (BEAKER) (test 0 % qifo=437) NEUTROPHILS ABSOLUTE COUNT (BEAKER) (test 1.77 K/ L 1.80-8.00 uacd=155) LYMPHOCYTES ABSOLUTE COUNT (BEAKER) (test 0.87 K/ L 1.48-4.50 twgc=821) MONOCYTES ABSOLUTE COUNT (BEAKER) (test htup=233) 0.62 K/ L 0.00-1.30 EOSINOPHILS ABSOLUTE COUNT (BEAKER) (test 0.22 K/ L 0.00-0.50 vzwi=529) BASOPHILS ABSOLUTE COUNT (BEAKER) (test pboj=756) 0.01 K/ L 0.00-0.20 0.00BASIC METABOLIC [id number] 06:54:00 Test Item Value Reference Range Comments SODIUM (BEAKER) (test 137 meq/L 136-145 byne=334) POTASSIUM (BEAKER) (test 3.8 meq/L 3.5-5.1 jjiw=276) CHLORIDE (BEAKER) (test 109 meq/L 98-107 bfcp=925) CO2 (BEAKER) (test 21 meq/L 22-29 nrbx=028) BLOOD UREA NITROGEN 17 mg/dL 7-21 (BEAKER) (test dkdb=972) CREATININE (BEAKER) (test 1.60 mg/dL 0.57-1.25 hksn=142) GLUCOSE RANDOM (BEAKER) 76 mg/dL 70-105 (test yiiw=771) CALCIUM (BEAKER) (test 7.5 mg/dL 8.4-10.2 rjar=848) EGFR (BEAKER) (test 46 mL/min/1.73 sq m ESTIMATED GFR IS NOT rpzb=0716) ACCURATE CREATININE CLEARANCE IN PREDICTING GLOMERULAR FILTRATION RATE. ESTIMATED GFR IS NOT APPLICABLE FOR DIALYSIS PATIENTS. Specimen moderately ictericHEPATIC FUNCTION [id number] 06:53:00 Test Item Value Reference Range Comments TOTAL PROTEIN (BEAKER) (test hsen=915) 5.6 gm/dL 6.0-8.3 ALBUMIN (BEAKER) (test lpru=5156) 2.4 g/dL 3.5-5.0 BILIRUBIN TOTAL (BEAKER) (test mzag=889) 4.5 mg/dL 0.2-1.2 BILIRUBIN DIRECT (BEAKER) (test yomx=673) 2.7 mg/dL 0.1-0.5 ALKALINE PHOSPHATASE (BEAKER) (test bfbx=458) 74 U/L 40-150 AST (SGOT) (BEAKER) (test wnfw=873) 36 U/L 5-34 ALT (SGPT) (BEAKER) (test maua=797) 13 U/L 6-55 Specimen moderately ictericB-TYPE NATRIURETIC FACTOR (BNP)[id number] 06:52:00 Test Item Value Reference Range Comments B-TYPE NATRIURETIC PEPTIDE (BEAKER) (test 446 pg/mL 0-100 almx=449) PROTHROMBIN [id number] 06:36:00 Test Item Value Reference Range Comments PROTIME (BEAKER) (test xjcw=437) 28.7 seconds 11.7-14.7 INR (BEAKER) (test ambg=436) 2.7 <=5.9 RECOMMENDED COUMADIN/WARFARIN INR THERAPY RANGESSTANDARD DOSE: 2.0 - 3.0 Includes: PROPHYLAXIS forvenous thrombosis, systemic embolization; TREATMENT for venous thrombosis and/or pulmonary embolus.HIGH RISK: Target INR is 2.5-3.5 for patients with mechanical heart valves.EOSINOPHIL SMEAR, [id number] 21: 44:00 Test Item Value Reference Range Comments EOSINOPHIL SMEAR, URINE (BEAKER) (test No EOS seen No EOS seen jgjt=7505) CREATININE, RANDOM [id number] 18:02:00 Test Item Value Reference Range Comments CREATININE URINE (BEAKER) (test dioc=454) 96.3 mg/dL Reference Range: No NormalsSODIUM, RANDOM [id number] 18:02:00 Test Item Value Reference Range Comments SODIUM URINE (BEAKER) (test qbcx=113) 58 meq/L Reference Range: No NormalsURINALYSIS W/ [id number] 17:33:00 Test Item Value Reference Range Comments COLOR (BEAKER) (test erxo=053) Yellow CLARITY (BEAKER) (test agpo=859) Clear SPECIFIC GRAVITY UA (BEAKER) (test beaq=379) 1.009 1.001-1.035 PH UA (BEAKER) (test ujjv=275) 6.0 5.0-8.0 PROTEIN UA (BEAKER) (test uroa=097) Negative Negative GLUCOSE UA (BEAKER) (test boly=492) Negative Negative KETONES UA (BEAKER) (test huak=747) Negative Negative BILIRUBIN UA (BEAKER) (test jgxs=540) Negative Negative BLOOD UA (BEAKER) (test gfya=253) Negative Negative NITRITE UA (BEAKER) (test ldpv=721) Negative Negative LEUKOCYTE ESTERASE UA (BEAKER) (test xacw=494) Negative Negative UROBILINOGEN UA (BEAKER) (test uime=339) 4.0 mg/dL 0.2-1.0 RBC UA (BEAKER) (test uhrf=650) < /HPF WBC UA (BEAKER) (test hkqh=267) 2 /HPF BACTERIA (BEAKER) (test zqur=918) Rare SOURCE(BEAKER) (test aytb=8950) CBC W/PLT COUNT & AUTO [id number] 06:53:00 Test Item Value Reference Range Comments WHITE BLOOD CELL COUNT (BEAKER) (test iypt=390) 3.5 K/ L 4.0-10.0 RED BLOOD CELL COUNT (BEAKER) (test yvrx=652) 2.17 M/ L 4.20-5.80 HEMOGLOBIN (BEAKER) (test xwtg=939) 7.9 GM/DL 13.0-16.8 HEMATOCRIT (BEAKER) (test kysw=387) 23.9 % 40.0-50.0 MEAN CORPUSCULAR VOLUME (BEAKER) (test pltx=762) 110.0 fL 82.0-98.0 MEAN CORPUSCULAR HEMOGLOBIN (BEAKER) (test 36.1 pg 27.0-33.0 cfya=226) MEAN CORPUSCULAR HEMOGLOBIN CONC (BEAKER) (test 32.9 GM/DL 32.0-36.0 sowm=044) RED CELL DISTRIBUTION WIDTH (BEAKER) (test 14.0 % 10.3-14.2 dpag=730) PLATELET COUNT (BEAKER) (test gazm=741) 77 K/CU MM 150-430 MEAN PLATELET VOLUME (BEAKER) (test slau=162) 6.1 fL 6.5-10.5 NUCLEATED RED BLOOD CELLS (BEAKER) (test 0 /100 WBC 0-0 tkol=556) NEUTROPHILS RELATIVE PERCENT (BEAKER) (test 56 % bkoz=053) LYMPHOCYTES RELATIVE PERCENT (BEAKER) (test 20 % jstl=163) MONOCYTES RELATIVE PERCENT (BEAKER) (test 18 % gisl=472) EOSINOPHILS RELATIVE PERCENT (BEAKER) (test 6 % rdxf=765) BASOPHILS RELATIVE PERCENT (BEAKER) (test 1 % nlye=871) NEUTROPHILS ABSOLUTE COUNT (BEAKER) (test 1.95 K/ L 1.80-8.00 wezx=076) LYMPHOCYTES ABSOLUTE COUNT (BEAKER) (test 0.69 K/ L 1.48-4.50 sggr=446) MONOCYTES ABSOLUTE COUNT (BEAKER) (test jzxf=498) 0.62 K/ L 0.00-1.30 EOSINOPHILS ABSOLUTE COUNT (BEAKER) (test 0.20 K/ L 0.00-0.50 dxfm=875) BASOPHILS ABSOLUTE COUNT (BEAKER) (test fhqj=244) 0.03 K/ L 0.00-0.20 0.00BASI METABOLIC [id number] 06:45:00 Test Item Value Reference Range Comments SODIUM (BEAKER) (test 134 meq/L 136-145 aszn=321) POTASSIUM (BEAKER) (test 3.6 meq/L 3.5-5.1 sgpu=971) CHLORIDE (BEAKER) (test 106 meq/L 98-107 rwvc=158) CO2 (BEAKER) (test 21 meq/L 22-29 yvhg=460) BLOOD UREA NITROGEN 14 mg/dL 7-21 (BEAKER) (test bswj=081) CREATININE (BEAKER) (test 1.33 mg/dL 0.57-1.25 wsxw=152) GLUCOSE RANDOM (BEAKER) 71 mg/dL 70-105 (test bmoq=670) CALCIUM (BEAKER) (test 7.6 mg/dL 8.4-10.2 qgzc=089) EGFR (BEAKER) (test 57 mL/min/1.73 sq m ESTIMATED GFR IS NOT ffyf=4798) ACCURATE CREATININE CLEARANCE IN PREDICTING GLOMERULAR FILTRATION RATE. ESTIMATED GFR IS NOT APPLICABLE FOR DIALYSIS PATIENTS. Specimen moderately ictericHEPATIC FUNCTION [id number] 06:40:00 Test Item Value Reference Range Comments TOTAL PROTEIN (BEAKER) (test rjwu=994) 5.6 gm/dL 6.0-8.3 ALBUMIN (BEAKER) (test ggpy=8515) 2.1 g/dL 3.5-5.0 BILIRUBIN TOTAL (BEAKER) (test dloe=857) 4.4 mg/dL 0.2-1.2 BILIRUBIN DIRECT (BEAKER) (test wdbz=560) 2.9 mg/dL 0.1-0.5 ALKALINE PHOSPHATASE (BEAKER) (test lfzs=751) 86 U/L 40-150 AST (SGOT) (BEAKER) (test qseu=942) 45 U/L 5-34 ALT (SGPT) (BEAKER) (test ivha=363) 13 U/L 6-55 Specimen moderately ictericPROTHROMBIN [id number] 06:05:00 Test Item Value Reference Range Comments PROTIME (BEAKER) (test tfrn=237) 29.4 seconds 11.7-14.7 INR (BEAKER) (test jzin=768) 2.8 <=5.9 RECOMMENDED COUMADIN/WARFARIN INR THERAPY RANGESSTANDARD DOSE: 2.0 - 3.0 Includes: PROPHYLAXIS forvenous thrombosis, systemic embolization; TREATMENT for venous thrombosis and/or pulmonary embolus.HIGH RISK: Target INR is 2.5-3.5 for patients with mechanical heart valves.BODY FLUID CELL COUNT WITH [id number] 20:51:00 Test Item Value Reference Range Comments APPEARANCE FLUID (BEAKER) (test hodg=666) Slightly Hazy Clear COLOR FLUID (BEAKER) (test bbda=773) Yellow Colorless, Straw RBC FLUID (BEAKER) (test cyqt=717) 545 /cu mm <=1 ADJUSTED WBC FLUID (BEAKER) (test rywc=8529) 104 /cu mm <=5 LINING CELLS (BEAKER) (test ypky=1430) 1 /cu mm <=1 NEUTROPHILS FLUID (BEAKER) (test fctb=6503) 3 % LYMPHS FLUID (BEAKER) (test xsci=549) 13 % MONO/MACROPHAGE FLUID (BEAKER) (test 84 % tbzz=131) EOSINOPHILS FLUID (BEAKER) (test cgrm=885) 0 % BASO FLUID (BEAKER) (test mqre=328) 0 % CONTAINER BODY FLUID (BEAKER) (test EDTA Tube xjrf=7750) POCT-GLUCOSE [id number] 18:48:00 Test Item Value Reference Range Comments POC-GLUCOSE METER (BEAKER) 105 mg/dL 70-110 TESTED AT [facility] [address] [facility] (test adrs=4394) [facility] [address] BASIC METABOLIC [id number] 05:45:00 Test Item Value Reference Range Comments SODIUM (BEAKER) (test 133 meq/L 136-145 txrn=168) POTASSIUM (BEAKER) (test 4.3 meq/L 3.5-5.1 Specimen moderately zdpu=091) hemolyzed CHLORIDE (BEAKER) (test 107 meq/L 98-107 ioez=300) CO2 (BEAKER) (test 19 meq/L 22-29 zhmj=106) BLOOD UREA NITROGEN 10 mg/dL 7-21 (BEAKER) (test xgqz=568) CREATININE (BEAKER) (test 0.86 mg/dL 0.57-1.25 Specimen moderately fuud=695) hemolyzed GLUCOSE RANDOM (BEAKER) 68 mg/dL 70-105 (test oucl=531) CALCIUM (BEAKER) (test 7.5 mg/dL 8.4-10.2 vuyy=587) EGFR (BEAKER) (test 94 mL/min/1.73 sq m ESTIMATED GFR IS NOT wdln=9398) ACCURATE CREATININE CLEARANCE IN PREDICTING GLOMERULAR FILTRATION RATE. ESTIMATED GFR IS NOT APPLICABLE FOR DIALYSIS PATIENTS. Specimen slightly ictericHEPATIC FUNCTION [id number] 05:45:00 Test Item Value Reference Range Comments TOTAL PROTEIN (BEAKER) (test 5.9 gm/dL 6.0-8.3 Specimen moderately hemolyzed regt=223) ALBUMIN (BEAKER) (test 1.9 g/dL 3.5-5.0 Specimen moderately hemolyzed omfw=2437) BILIRUBIN TOTAL (BEAKER) (test 4.4 mg/dL 0.2-1.2 Specimen moderately hemolyzed rrkt=951) BILIRUBIN DIRECT (BEAKER) 2.6 mg/dL 0.1-0.5 Specimen moderately hemolyzed (test hhnr=639) ALKALINE PHOSPHATASE (BEAKER) 86 U/L 40-150 (test pfcv=587) AST (SGOT) (BEAKER) (test 74 U/L 5-34 Specimen moderately hemolyzed iagc=321) ALT (SGPT) (BEAKER) (test 17 U/L 6-55 Specimen moderately oqti=126) hemolyzed Specimen slightly ictericCBC W/PLT COUNT & AUTO [id number] 05:21 :00 Test Item Value Reference Range Comments WHITE BLOOD CELL COUNT (BEAKER) (test xoqj=347) 3.5 K/ L 4.0-10.0 RED BLOOD CELL COUNT (BEAKER) (test tzqs=068) 2.06 M/ L 4.20-5.80 HEMOGLOBIN (BEAKER) (test coyb=263) 7.9 GM/DL 13.0-16.8 HEMATOCRIT (BEAKER) (test vjha=211) 22.8 % 40.0-50.0 MEAN CORPUSCULAR VOLUME (BEAKER) (test npxo=320) 110.0 fL 82.0-98.0 MEAN CORPUSCULAR HEMOGLOBIN (BEAKER) (test 38.2 pg 27.0-33.0 ekuy=588) MEAN CORPUSCULAR HEMOGLOBIN CONC (BEAKER) (test 34.6 GM/DL 32.0-36.0 ubca=350) RED CELL DISTRIBUTION WIDTH (BEAKER) (test 13.5 % 10.3-14.2 pvio=692) PLATELET COUNT (BEAKER) (test agwp=196) 61 K/CU MM 150-430 MEAN PLATELET VOLUME (BEAKER) (test dmfc=533) 6.8 fL 6.5-10.5 NUCLEATED RED BLOOD CELLS (BEAKER) (test 0 /100 WBC 0-0 pzcb=639) NEUTROPHILS RELATIVE PERCENT (BEAKER) (test 51 % jgko=930) LYMPHOCYTES RELATIVE PERCENT (BEAKER) (test 24 % sizy=602) MONOCYTES RELATIVE PERCENT (BEAKER) (test 18 % lovo=796) EOSINOPHILS RELATIVE PERCENT (BEAKER) (test 7 % izlt=549) BASOPHILS RELATIVE PERCENT (BEAKER) (test 1 % wxcw=888) NEUTROPHILS ABSOLUTE COUNT (BEAKER) (test 1.76 K/ L 1.80-8.00 zhdq=964) LYMPHOCYTES ABSOLUTE COUNT (BEAKER) (test 0.85 K/ L 1.48-4.50 vtup=492) MONOCYTES ABSOLUTE COUNT (BEAKER) (test nhon=413) 0.61 K/ L 0.00-1.30 EOSINOPHILS ABSOLUTE COUNT (BEAKER) (test 0.23 K/ L 0.00-0.50 visu=940) BASOPHILS ABSOLUTE COUNT (BEAKER) (test nkts=378) 0.02 K/ L 0.00-0.20 0.00PROTHROMBIN [id number] 05:19:00 Test Item Value Reference Range Comments PROTIME (BEAKER) (test jtoh=816) 28.2 seconds 11.7-14.7 INR (BEAKER) (test wfod=199) 2.6 <=5.9 RECOMMENDED COUMADIN/WARFARIN INR THERAPY RANGESSTANDARD DOSE: 2.0 - 3.0 Includes: PROPHYLAXIS forvenous thrombosis, systemic embolization; TREATMENT for venous thrombosis and/or pulmonary embolus.HIGH RISK: Target INR is 2.5-3.5 for patients with mechanical heart valves.BODY FLUID CULTURE + GRAM [id number] 14:14:00 Test Item Value Reference Range Comments CULTURE (BEAKER) (test fxwh=0183) No growth GRAM STAIN RESULT (BEAKER) (test 2+ WBCs ztfd=3490) GRAM STAIN RESULT (BEAKER) (test No organisms seen mmvc=42825) CBC W/PLT COUNT & AUTO [id number] 10:28:00 Test Item Value Reference Range Comments WHITE BLOOD CELL COUNT (BEAKER) (test jaud=325) 3.6 K/ L 4.0-10.0 RED BLOOD CELL COUNT (BEAKER) (test nvbq=066) 2.17 M/ L 4.20-5.80 HEMOGLOBIN (BEAKER) (test oekp=889) 7.7 GM/DL 13.0-16.8 HEMATOCRIT (BEAKER) (test rkwq=539) 23.8 % 40.0-50.0 MEAN CORPUSCULAR VOLUME (BEAKER) (test vwrd=942) 110.0 fL 82.0-98.0 MEAN CORPUSCULAR HEMOGLOBIN (BEAKER) (test 35.3 pg 27.0-33.0 ixvt=488) MEAN CORPUSCULAR HEMOGLOBIN CONC (BEAKER) (test 32.1 GM/DL 32.0-36.0 wjpv=114) RED CELL DISTRIBUTION WIDTH (BEAKER) (test 13.7 % 10.3-14.2 hhhn=093) PLATELET COUNT (BEAKER) (test onep=291) 62 K/CU MM 150-430 MEAN PLATELET VOLUME (BEAKER) (test gvxr=451) 6.5 fL 6.5-10.5 NUCLEATED RED BLOOD CELLS (BEAKER) (test 0 /100 WBC 0-0 selo=414) NEUTROPHILS RELATIVE PERCENT (BEAKER) (test 58 % rzpb=003) LYMPHOCYTES RELATIVE PERCENT (BEAKER) (test 18 % jnbc=507) MONOCYTES RELATIVE PERCENT (BEAKER) (test 17 % cmfo=159) EOSINOPHILS RELATIVE PERCENT (BEAKER) (test 8 % jzdp=458) BASOPHILS RELATIVE PERCENT (BEAKER) (test 0 % rkax=537) NEUTROPHILS ABSOLUTE COUNT (BEAKER) (test 2.10 K/ L 1.80-8.00 qnro=253) LYMPHOCYTES ABSOLUTE COUNT (BEAKER) (test 0.63 K/ L 1.48-4.50 svaa=668) MONOCYTES ABSOLUTE COUNT (BEAKER) (test fqzq=365) 0.59 K/ L 0.00-1.30 EOSINOPHILS ABSOLUTE COUNT (BEAKER) (test 0.28 K/ L 0.00-0.50 bjcl=826) BASOPHILS ABSOLUTE COUNT (BEAKER) (test naze=720) 0.00 K/ L 0.00-0.20 [id number] 10:16:00 Test Item Value Reference Range Comments PROCALCITONIN (BEAKER) (test lurq=0058) < ng/mL <0.05 SEPSIS RISK (ng/mL)Low: 0.05-0.50Intermediate: 0.51-2.00High: & gt;=2.01HEPATIC FUNCTION [id number] 06:26:00 Test Item Value Reference Range Comments TOTAL PROTEIN (BEAKER) (test pxqy=537) 5.6 gm/dL 6.0-8.3 ALBUMIN (BEAKER) (test yvnf=3824) 1.9 g/dL 3.5-5.0 BILIRUBIN TOTAL (BEAKER) (test qrbv=501) 4.7 mg/dL 0.2-1.2 BILIRUBIN DIRECT (BEAKER) (test mvrj=616) 2.9 mg/dL 0.1-0.5 ALKALINE PHOSPHATASE (BEAKER) (test wkvy=833) 85 U/L 40-150 AST (SGOT) (BEAKER) (test opyb=347) 53 U/L 5-34 ALT (SGPT) (BEAKER) (test xwhn=693) 14 U/L 6-55 Specimen moderately ictericBASIC METABOLIC [id number] 06:26:00 Test Item Value Reference Range Comments SODIUM (BEAKER) (test 134 meq/L 136-145 wmjf=847) POTASSIUM (BEAKER) (test 3.8 meq/L 3.5-5.1 bmpx=136) CHLORIDE (BEAKER) (test 107 meq/L 98-107 mgyz=808) CO2 (BEAKER) (test 19 meq/L 22-29 kuqr=100) BLOOD UREA NITROGEN 8 mg/dL 7-21 (BEAKER) (test hbuw=427) CREATININE (BEAKER) (test 0.73 mg/dL 0.57-1.25 vrzn=572) GLUCOSE RANDOM (BEAKER) 73 mg/dL 70-105 (test ukvh=641) CALCIUM (BEAKER) (test 7.2 mg/dL 8.4-10.2 ipzp=881) EGFR (BEAKER) (test 113 mL/min/1.73 sq m ESTIMATED GFR IS NOT uoue=8734) ACCURATE CREATININE CLEARANCE IN PREDICTING GLOMERULAR FILTRATION RATE. ESTIMATED GFR IS NOT APPLICABLE FOR DIALYSIS PATIENTS. Specimen moderately ictericPROTHROMBIN [id number] 06:05:00 Test Item Value Reference Range Comments PROTIME (BEAKER) (test uvkz=156) 30.9 seconds 11.7-14.7 INR (BEAKER) (test gptz=347) 3.0 <=5.9 RECOMMENDED COUMADIN/WARFARIN INR THERAPY RANGESSTANDARD DOSE: 2.0 - 3.0 Includes: PROPHYLAXIS forvenous thrombosis, systemic embolization; TREATMENT for venous thrombosis and/or pulmonary embolus.HIGH RISK: Target INR is 2.5-3.5 for patients with mechanical heart valves.[id number] 05:54:00 Test Item Value Reference Range Comments PREALBUMIN (BEAKER) (test glxi=542) < mg/dL 14-45 URINE [id number] 12:11:00 Test Item Value Reference Range Comments CULTURE (BEAKER) (test wyef=0207) No growth VANCOMYCIN LEVEL, [id number] 09:26:00 Test Item Value Reference Range Comments VANCOMYCIN TROUGH (BEAKER) (test fvzn=552) 15.3 ug/mL 10.0-20.0 HEPATIC FUNCTION [id number] 06:17:00 Test Item Value Reference Range Comments TOTAL PROTEIN (BEAKER) (test okzk=364) 5.6 gm/dL 6.0-8.3 ALBUMIN (BEAKER) (test vqko=9158) 2.0 g/dL 3.5-5.0 BILIRUBIN TOTAL (BEAKER) (test jpyr=710) 4.2 mg/dL 0.2-1.2 BILIRUBIN DIRECT (BEAKER) (test kteo=716) 2.7 mg/dL 0.1-0.5 ALKALINE PHOSPHATASE (BEAKER) (test lwsn=430) 98 U/L 40-150 AST (SGOT) (BEAKER) (test nopg=270) 45 U/L 5-34 ALT (SGPT) (BEAKER) (test gztv=991) 12 U/L 6-55 Specimen slightly ictericBASIC METABOLIC [id number] 06:17:00 Test Item Value Reference Range Comments SODIUM (BEAKER) (test 133 meq/L 136-145 fkqq=460) POTASSIUM (BEAKER) (test 3.4 meq/L 3.5-5.1 ufdi=009) CHLORIDE (BEAKER) (test 107 meq/L 98-107 fsyp=996) CO2 (BEAKER) (test 22 meq/L 22-29 bigg=453) BLOOD UREA NITROGEN 7 mg/dL 7-21 (BEAKER) (test pjuy=626) CREATININE (BEAKER) (test 0.73 mg/dL 0.57-1.25 qxpa=996) GLUCOSE RANDOM (BEAKER) 87 mg/dL 70-105 (test qtgx=101) CALCIUM (BEAKER) (test 7.2 mg/dL 8.4-10.2 yuog=790) EGFR (BEAKER) (test 113 mL/min/1.73 sq m ESTIMATED GFR IS NOT micq=3653) ACCURATE CREATININE CLEARANCE IN PREDICTING GLOMERULAR FILTRATION RATE. ESTIMATED GFR IS NOT APPLICABLE FOR DIALYSIS PATIENTS. Specimen slightly ictericPROTHROMBIN [id number] 06:04:00 Test Item Value Reference Range Comments PROTIME (BEAKER) (test ypoi=642) 31.7 seconds 11.7-14.7 INR (BEAKER) (test upsg=377) 3.0 <=5.9 RECOMMENDED COUMADIN/WARFARIN INR THERAPY RANGESSTANDARD DOSE: 2.0 - 3.0 Includes: PROPHYLAXIS forvenous thrombosis, systemic embolization; TREATMENT for venous thrombosis and/or pulmonary embolus.HIGH RISK: Target INR is 2.5-3.5 for patients with mechanical heart valves.VITAMIN B12 AND [id number] 19:36 :00 Test Item Value Reference Range Comments VITAMIN B12 (BEAKER) (test ygjo=440) 1121 pg/mL 213-816 FOLATE (BEAKER) (test kaye=436) 18.3 ng/mL >=7.0 Effective 09/13/2014: Folate Reference Range ChangeNew: >=7.0 Previous: & gt;=5.4VITAMIN B12 AND [id number] 14:57:00 Test Item Value Reference Range Comments VITAMIN B12 (BEAKER) (test uzoe=134) 1325 pg/mL 213-816 FOLATE (BEAKER) (test geis=575) 8.3 ng/mL >=7.0 Effective 09/13/2014: Folate Reference Range ChangeNew: >=7.0 Previous: & gt;=5.4ANTI-NUCLEAR ANTIBODY (CHERYL)2017-02-03 13:56:00 Test Item Value Reference Range Comments ANTI-NUCLEAR ANTIBODY (CHERYL) (BEAKER) (test Negative Negative btyq=311) HEPATITIS B CORE ANTIBODY, [id number] 12:27:00 Test Item Value Reference Range Comments HEPATITIS B CORE TOTAL ANTIBODY (BEAKER) (test Nonreactive Nonreactive nqzh=813) CRYPTOCOCCAL [id number] 11:25:00 Test Item Value Reference Range Comments CRYPTOCOCCAL ANTIGEN, SERUM (BEAKER) (test Negative Negative, Interference zlwn=0209) HEPATITIS B SURFACE [id number] 11:15:00 Test Item Value Reference Range Comments HEPATITIS B SURFACE ANTIBODY (BEAKER) (test < mIU/mL <8.0 iqbi=647) HEPATITIS B SURFACE [id number] 09:53:00 Test Item Value Reference Range Comments HEPATITIS B SURFACE ANTIGEN (2) (BEAKER) (test Nonreactive Nonreactive solm=8103) HIV-1 ANTIGEN WITH HIV-1/2 [id number] 09:53:00 Test Item Value Reference Range Comments HIV-1 ANTIGEN WITH HIV 1\\T\\2 ANTIBODY (2) Nonreactive Nonreactive (BEAKER) (test woea=0259) HEPATIC FUNCTION [id number] 07:01:00 Test Item Value Reference Range Comments TOTAL PROTEIN (BEAKER) (test jxpj=438) 5.5 gm/dL 6.0-8.3 ALBUMIN (BEAKER) (test yrqp=9573) 2.0 g/dL 3.5-5.0 BILIRUBIN TOTAL (BEAKER) (test mgdf=833) 3.8 mg/dL 0.2-1.2 BILIRUBIN DIRECT (BEAKER) (test steo=430) 2.5 mg/dL 0.1-0.5 ALKALINE PHOSPHATASE (BEAKER) (test jnxg=462) 108 U/L 40-150 AST (SGOT) (BEAKER) (test dpqi=010) 40 U/L 5-34 ALT (SGPT) (BEAKER) (test hlcv=152) 10 U/L 6-55 Specimen slightly ictericBASIC METABOLIC [id number] 07:01:00 Test Item Value Reference Range Comments SODIUM (BEAKER) (test 133 meq/L 136-145 iccx=111) POTASSIUM (BEAKER) (test 3.7 meq/L 3.5-5.1 mtog=055) CHLORIDE (BEAKER) (test 108 meq/L 98-107 hkeo=503) CO2 (BEAKER) (test 20 meq/L 22-29 oyxy=105) BLOOD UREA NITROGEN 7 mg/dL 7-21 (BEAKER) (test ekgp=947) CREATININE (BEAKER) (test 0.76 mg/dL 0.57-1.25 fubq=933) GLUCOSE RANDOM (BEAKER) 100 mg/dL 70-105 (test qujt=765) CALCIUM (BEAKER) (test 7.3 mg/dL 8.4-10.2 pciu=176) EGFR (BEAKER) (test 108 mL/min/1.73 sq m ESTIMATED GFR IS NOT nvww=1303) ACCURATE CREATININE CLEARANCE IN PREDICTING GLOMERULAR FILTRATION RATE. ESTIMATED GFR IS NOT APPLICABLE FOR DIALYSIS PATIENTS. Specimen slightly ictericC W/PLT COUNT & AUTO [id number] 06:53 :00 Test Item Value Reference Range Comments WHITE BLOOD CELL COUNT (BEAKER) (test lhtj=326) 3.5 K/ L 4.0-10.0 RED BLOOD CELL COUNT (BEAKER) (test zbij=826) 1.83 M/ L 4.20-5.80 HEMOGLOBIN (BEAKER) (test syte=333) 7.3 GM/DL 13.0-16.8 HEMATOCRIT (BEAKER) (test nzka=567) 19.9 % 40.0-50.0 MEAN CORPUSCULAR VOLUME (BEAKER) (test krfy=846) 109.0 fL 82.0-98.0 MEAN CORPUSCULAR HEMOGLOBIN (BEAKER) (test 39.9 pg 27.0-33.0 xknx=651) MEAN CORPUSCULAR HEMOGLOBIN CONC (BEAKER) (test 36.6 GM/DL 32.0-36.0 maeu=396) RED CELL DISTRIBUTION WIDTH (BEAKER) (test 14.3 % 10.3-14.2 tgfw=546) PLATELET COUNT (BEAKER) (test sapu=498) 35 K/CU MM 150-430 MEAN PLATELET VOLUME (BEAKER) (test dshz=440) 6.6 fL 6.5-10.5 NUCLEATED RED BLOOD CELLS (BEAKER) (test 0 /100 WBC 0-0 itaz=224) NEUTROPHILS RELATIVE PERCENT (BEAKER) (test 60 % zhkw=602) LYMPHOCYTES RELATIVE PERCENT (BEAKER) (test 18 % hitz=419) MONOCYTES RELATIVE PERCENT (BEAKER) (test 17 % smnu=458) EOSINOPHILS RELATIVE PERCENT (BEAKER) (test 6 % tusu=151) BASOPHILS RELATIVE PERCENT (BEAKER) (test 0 % cnav=150) NEUTROPHILS ABSOLUTE COUNT (BEAKER) (test 2.06 K/ L 1.80-8.00 ywhw=660) LYMPHOCYTES ABSOLUTE COUNT (BEAKER) (test 0.61 K/ L 1.48-4.50 wjeq=543) MONOCYTES ABSOLUTE COUNT (BEAKER) (test nxgs=029) 0.58 K/ L 0.00-1.30 EOSINOPHILS ABSOLUTE COUNT (BEAKER) (test 0.19 K/ L 0.00-0.50 jian=858) BASOPHILS ABSOLUTE COUNT (BEAKER) (test szgn=913) 0.01 K/ L 0.00-0.20 0.00PROTHROMBIN [id number] 06:39:00 Test Item Value Reference Range Comments PROTIME (BEAKER) (test jscn=692) 30.6 seconds 11.7-14.7 INR (BEAKER) (test aded=291) 2.9 <=5.9 RECOMMENDED COUMADIN/WARFARIN INR THERAPY RANGESSTANDARD DOSE: 2.0 - 3.0 Includes: PROPHYLAXIS forvenous thrombosis, systemic embolization; TREATMENT for venous thrombosis and/or pulmonary embolus.HIGH RISK: Target INR is 2.5-3.5 for patients with mechanical heart valves.URINALYSIS W/ [id number] 16 :58:00 Test Item Value Reference Range Comments COLOR (BEAKER) (test gvns=598) Yellow CLARITY (BEAKER) (test hzpi=267) Clear SPECIFIC GRAVITY UA (BEAKER) (test 1.025 1.001-1.035 nwpf=265) PH UA (BEAKER) (test efzp=238) 7.0 5.0-8.0 PROTEIN UA (BEAKER) (test xszg=807) Negative Negative GLUCOSE UA (BEAKER) (test aodu=757) Negative Negative KETONES UA (BEAKER) (test mkas=190) Negative Negative BILIRUBIN UA (BEAKER) (test ucej=943) Positive Negative BLOOD UA (BEAKER) (test cfbn=926) Negative Negative NITRITE UA (BEAKER) (test huoo=841) Negative Negative LEUKOCYTE ESTERASE UA (BEAKER) (test Negative Negative ecer=395) UROBILINOGEN UA (BEAKER) (test alnh=136) 8.0 mg/dL 0.2-1.0 RBC UA (BEAKER) (test sjny=774) 0 /HPF WBC UA (BEAKER) (test zouk=615) 2 /HPF MUCUS (BEAKER) (test npyo=7491) Rare HYALINE CASTS (BEAKER) (test twvy=158) 3 /LPF SOURCE(BEAKER) (test lgmn=8845) Urine, Clean Catch [id number] 13:32:00 Test Item Value Reference Range Comments FERRITIN (BEAKER) (test akvs=648) 116 ng/mL 5-275 Effective 09/13/2014: Reference Range ChangeNew: Male 5-275 Previous: Male 22-322 Female 5-275 Female 10-291HEPATITIS A ANTIBODY, [id number] 13:19:00 Test Item Value Reference Range Comments HEPATITIS A IGG ANTIBODY (BEAKER) (test rqol=0499) Reactive Nonreactive ALPHA FETOPROTEIN (AFP), TUMOR [id number] 13:17:00 Test Item Value Reference Range Comments ALPHA-FETOPROTEIN (BEAKER) (test lefa=6963) 4.5 ng/mL <10.0 Effective 09/13/2014: Reference Range ChangeNew: <10.0 Previous: 0.0- 8.0HEPATITIS C [id number] 13:17:00 Test Item Value Reference Range Comments HEPATITIS C ANTIBODY (BEAKER) (test mcnt=990) Nonreactive Nonreactive BODY FLUID CELL COUNT WITH [id number] 13:03:00 Test Item Value Reference Range Comments APPEARANCE FLUID (BEAKER) (test vfjy=622) Cloudy Clear COLOR FLUID (BEAKER) (test ubqs=383) Yellow Colorless, Straw RBC FLUID (BEAKER) (test pddd=379) 1519 /cu mm <=1 ADJUSTED WBC FLUID (BEAKER) (test phpm=0431) 108 /cu mm <=5 LINING CELLS (BEAKER) (test ofhg=1001) 14 /cu mm <=1 NEUTROPHILS FLUID (BEAKER) (test yikl=8567) 11 % LYMPHS FLUID (BEAKER) (test ijib=930) 30 % MONO/MACROPHAGE FLUID (BEAKER) (test fuop=216) 59 % EOSINOPHILS FLUID (BEAKER) (test ubui=639) 0 % BASO FLUID (BEAKER) (test zhvr=623) 0 % CONTAINER BODY FLUID (BEAKER) (test cogo=1759) EDTA Tube BASIC METABOLIC [id number] 12:56:00 Test Item Value Reference Range Comments SODIUM (BEAKER) (test 131 meq/L 136-145 qfig=018) POTASSIUM (BEAKER) (test 4.0 meq/L 3.5-5.1 Specimen moderately ddiv=704) hemolyzed CHLORIDE (BEAKER) (test 105 meq/L 98-107 zgfy=435) CO2 (BEAKER) (test 18 meq/L 22-29 niyx=772) BLOOD UREA NITROGEN 6 mg/dL 7-21 (BEAKER) (test pfvr=222) CREATININE (BEAKER) (test 0.72 mg/dL 0.57-1.25 Specimen moderately bmha=857) hemolyzed GLUCOSE RANDOM (BEAKER) 103 mg/dL 70-105 (test ptif=137) CALCIUM (BEAKER) (test 7.4 mg/dL 8.4-10.2 cqpm=523) EGFR (BEAKER) (test 115 mL/min/1.73 sq m ESTIMATED GFR IS NOT aukb=3845) ACCURATE CREATININE CLEARANCE IN PREDICTING GLOMERULAR FILTRATION RATE. ESTIMATED GFR IS NOT APPLICABLE FOR DIALYSIS PATIENTS. Specimen moderately ictericIRON, TIBC, % SAT. (WITHOUT FERRITIN)2017-02-02 12:56 :00 Test Item Value Reference Range Comments IRON (BEAKER) (test udnj=417) 55 ug/dL 40-160 TOTAL IRON BINDING CAPACITY (BEAKER) (test 175 ug/dL 250-450 hgns=962) IRON % SATURATION (2) (BEAKER) (test vcvl=7508) 31 % 20-55 HEPATIC FUNCTION [id number] 12:50:00 Test Item Value Reference Range Comments TOTAL PROTEIN (BEAKER) (test 6.7 gm/dL 6.0-8.3 Specimen moderately hemolyzed hcbx=623) ALBUMIN (BEAKER) (test 2.0 g/dL 3.5-5.0 Specimen moderately hemolyzed ewes=7567) BILIRUBIN TOTAL (BEAKER) (test 5.1 mg/dL 0.2-1.2 Specimen moderately hemolyzed wrhr=999) BILIRUBIN DIRECT (BEAKER) 2.8 mg/dL 0.1-0.5 Specimen moderately hemolyzed (test atvc=179) ALKALINE PHOSPHATASE (BEAKER) 99 U/L 40-150 (test jozm=492) AST (SGOT) (BEAKER) (test 62 U/L 5-34 Specimen moderately hemolyzed domj=931) ALT (SGPT) (BEAKER) (test 15 U/L 6-55 Specimen moderately oafc=323) hemolyzed Specimen moderately ictericCBC W/PLT COUNT & AUTO [id number] 12: 47:00 Test Item Value Reference Range Comments WHITE BLOOD CELL COUNT (BEAKER) (test njek=193) 3.3 K/ L 4.0-10.0 RED BLOOD CELL COUNT (BEAKER) (test wmzd=729) 2.08 M/ L 4.20-5.80 HEMOGLOBIN (BEAKER) (test btjc=944) 7.8 GM/DL 13.0-16.8 HEMATOCRIT (BEAKER) (test xwrb=553) 22.9 % 40.0-50.0 MEAN CORPUSCULAR VOLUME (BEAKER) (test qysx=650) 110.0 fL 82.0-98.0 MEAN CORPUSCULAR HEMOGLOBIN (BEAKER) (test 37.4 pg 27.0-33.0 xqdg=714) MEAN CORPUSCULAR HEMOGLOBIN CONC (BEAKER) (test 34.1 GM/DL 32.0-36.0 kexh=208) RED CELL DISTRIBUTION WIDTH (BEAKER) (test 15.0 % 10.3-14.2 dcne=216) PLATELET COUNT (BEAKER) (test hqzt=764) 48 K/CU MM 150-430 MEAN PLATELET VOLUME (BEAKER) (test gfcs=534) 6.6 fL 6.5-10.5 NUCLEATED RED BLOOD CELLS (BEAKER) (test 0 /100 WBC 0-0 bxle=522) NEUTROPHILS RELATIVE PERCENT (BEAKER) (test 62 % fiaw=403) LYMPHOCYTES RELATIVE PERCENT (BEAKER) (test 17 % vqjg=400) MONOCYTES RELATIVE PERCENT (BEAKER) (test 15 % njjn=660) EOSINOPHILS RELATIVE PERCENT (BEAKER) (test 6 % jrcy=200) BASOPHILS RELATIVE PERCENT (BEAKER) (test 0 % pgce=525) NEUTROPHILS ABSOLUTE COUNT (BEAKER) (test 2.03 K/ L 1.80-8.00 ntet=368) LYMPHOCYTES ABSOLUTE COUNT (BEAKER) (test 0.57 K/ L 1.48-4.50 tgqc=101) MONOCYTES ABSOLUTE COUNT (BEAKER) (test wlqt=779) 0.48 K/ L 0.00-1.30 EOSINOPHILS ABSOLUTE COUNT (BEAKER) (test 0.19 K/ L 0.00-0.50 evbg=694) BASOPHILS ABSOLUTE COUNT (BEAKER) (test yanb=230) 0.01 K/ L 0.00-0.20 0.00PROTHROMBIN [id number] 12:42:00 Test Item Value Reference Range Comments PROTIME (BEAKER) (test hzlf=010) 27.0 seconds 11.7-14.7 INR (BEAKER) (test sdtz=429) 2.5 <=5.9 RECOMMENDED COUMADIN/WARFARIN INR THERAPY RANGESSTANDARD DOSE: 2.0 - 3.0 Includes: PROPHYLAXIS forvenous thrombosis, systemic embolization; TREATMENT for venous thrombosis and/or pulmonary embolus.HIGH RISK: Target INR is 2.5-3.5 for patients with mechanical heart valves.ALBUMIN, BODY [id number] 11:46:00 Test Item Value Reference Range Comments ALBUMIN FLUID (BEAKER) (test jvmd=070) 0.5 gm/dL Reference Range: No Normals Assay performance has not been validated for this type of specimen.PROTEIN, BODY [id number] 11:42:00 Test Item Value Reference Range Comments PROTEIN FLUID (BEAKER) (test boph=128) 1.3 g/dL Absence of reference range indicates that normals have not been defined.Assay performance has not been validated for this type of specimen.
--- OUTSIDE RECORDS SUMMARY | 2018-09-15 09:31 | XMS REPORT ---
[...] Status Dosage System Date Date Ondansetron HCl [facility] 07383299422 4 MG Orally Active 1 tab every 8 hours as needed for Nausea and vomiting Hydrocortisone ND 38857987178 20 MG Orally AM Active 1 tablet Once a day with food or milk Magnesium Oxide ND 46176576707 400 MG Orally Active 1 tablet BID as needed Rifaximin [facility] [address]-87 550 MG Orally Active 1 tablet Twice a day Pantoprazole ND 48196376788 40 MG Orally Active 1 tablet Sodium Once a day Sodium Chloride ND 68454967368 1 GM Orally TID Active 2 tablets Lactulose ND 72087080541 10 GM/15ML Active 15 ml Orally TID Ondansetron HCl [facility] 39865892697 4 MG Active 1 TAB EVERY 8 HOURS NEEDED FOR NAUSEA AND VOMITING ORALLY 10 DAYS Citalopram [facility] 92224779006 40 MG Orally Active take one Hydrobromide once a day daily Hydrocortisone [facility] 82614846886 10 MG Orally PM Active 1 tablet Once a day with food or milk NuFera [facility] 49083794455 - Orally once a Active 1 tab day Citalopram [facility] 51769165792 10 MG Active TAKE ONE Hydrobromide DAILY Ursodiol [facility] 52587423507 300 MG Orally Active not defined Midodrine HCl [facility] 87672071754 10 MG Orally Active 1 tablet Three times a day Results No Known Results Summary Purpose eClinicalWorks Submission
--- OUTSIDE RECORDS SUMMARY | 2018-09-15 09:31 | XMS REPORT ---
[...] Status Dosage System Date Date Midodrine HCl [facility] [place] 04036315032 10 MG Orally Active 1 tablet Three times a day Pantoprazole [facility] [place] 56084366710 40 MG Orally Active 1 tablet Sodium Once a day Sodium Chloride ND 46059108142 1 GM Orally TID Active 2 tablets Ondansetron HCl ND 53716303212 4 MG Orally Active 1 tab every 8 hours as needed for Nausea and vomiting Hydrocortisone ND 22277637896 20 MG Orally AM Active 1 tablet Once a day with food or milk Ursodiol ND 26256618106 300 MG Orally Active not defined Lactulose ND 52325052144 10 GM/15ML Active 15 ml Orally TID Citalopram [facility] [place] 45065876841 10 MG Active TAKE ONE Hydrobromide DAILY Rifaximin [facility] [place] [address]-27 550 MG Orally Active 1 tablet Twice a day Ondansetron HCl [facility] [place] 19175550243 4 MG Active 1 TAB EVERY 8 HOURS NEEDED FOR NAUSEA AND VOMITING ORALLY 10 DAYS Magnesium Oxide [facility] [place] 96591296776 400 MG Orally Active 1 tablet BID as needed NuFera [facility] [place] 18700033437 - Orally once a Active 1 tab day Hydrocortisone [facility] [place] 34777195850 10 MG Orally PM Active 1 tablet Once a day with food or milk Results No Known Results Summary Purpose eClinicalWorks Submission
[2018-09-15 09:47] VITALS: O2SAT 98
--- NOTE | 2018-09-15 10:50 | RAD REPORT ---
EXAM DESCRIPTION: US - Paracentesis Proc Guidance - 09/15/2018 10:22 am CLINICAL HISTORY: ASCITES Ascites COMPARISON: Paracentesis Proc Guidance dated 08/21/2018 FINDINGS: Informed consent was obtained and time-out was performed. Patient's abdomen was prepped and draped in the usual sterile fashion. 1% lidocaine was used for loca l anesthetic purposes. A small skin incision was made. A paracentesis catheter was guided into the peroneal cavity under son ographic guidance. A large volume paracentesis was performed. The patient tolerated the procedure well. Patient was administered IV albumin per protocol following the procedure. IMPRESSION: Successful ultrasound-guided paracentesis.
[2018-09-15 13:41] VITALS: BP 100/77; TEMP 98
== END | disposition home or self-care (01) ==
LOC: DS 09:14
PROVIDERS: ATTEND Family Medicine
PROC: 0W9G3ZX Drainage of Peritoneal Cavity, Percutaneous Approach, Diagnostic (ICD-10-PCS; principal; 2018-09-15)
PROC: BW40ZZZ Ultrasonography of Abdomen (ICD-10-PCS; 2018-09-15)
DX: K70.31 Alcoholic cirrhosis of liver with ascites (principal); K72.90 Hepatic failure, unspecified without coma
CPT/HCPCS: 49083; 96365; P9047

== ENCOUNTER 2018-09-21 23:45 | Observation (INO) | payer MEDICAID ==
--- OUTSIDE RECORDS SUMMARY | 2018-09-21 23:58 | XMS REPORT ---
:1965 Author Organization [facility] Address [address] [place], [place] [address]mariela Lantigua [address] [place] [address] Care Team Providers Name Role Phone INGRID [...] Value Reference Range Comments CULTURE (BEAKER) (test hqxm=3329) No growth GRAM STAIN RESULT (BEAKER) (test lhrt=8749) No WBCs GRAM STAIN RESULT (BEAKER) (test opso=28963) No organisms seen POCT-GLUCOSE [id number] 07:52:00 Test Item Value Reference Range Comments POC-GLUCOSE METER (BEAKER) 115 mg/dL 70-110 TESTED AT [facility] [address] [place] [address] (test ncyc=6393) [facility] [address] [id number] 05:18:00 Test Item Value Reference Range Comments MAGNESIUM (BEAKER) (test swdk=287) 1.9 mg/dL 1.6-2.6 COMPREHENSIVE METABOLIC [id number] 05:18:00 Test Item Value Reference Range Comments TOTAL PROTEIN (BEAKER) 5.2 gm/dL 6.0-8.3 (test ldku=221) ALBUMIN (BEAKER) (test 3.4 g/dL 3.5-5.0 eqck=1836) ALKALINE PHOSPHATASE 113 U/L 40-150 (BEAKER) (test qtnq=818) BILIRUBIN TOTAL (BEAKER) 2.9 mg/dL 0.2-1.2 (test phpd=563) SODIUM (BEAKER) (test 131 meq/L 136-145 aanf=843) POTASSIUM (BEAKER) (test 4.0 meq/L 3.5-5.1 exat=770) CHLORIDE (BEAKER) (test 101 meq/L 98-107 ntal=145) CO2 (BEAKER) (test 21 meq/L 22-29 bbgf=983) BLOOD UREA NITROGEN 28 mg/dL 7-21 (BEAKER) (test zbzr=554) CREATININE (BEAKER) (test 1.65 mg/dL 0.57-1.25 shvj=962) GLUCOSE RANDOM (BEAKER) 122 mg/dL 70-105 (test cljs=979) CALCIUM (BEAKER) (test 9.3 mg/dL 8.4-10.2 fhhq=462) AST (SGOT) (BEAKER) (test 15 U/L 5-34 uoag=414) ALT (SGPT) (BEAKER) (test 8 U/L 6-55 moes=005) EGFR (BEAKER) (test 44 mL/min/1.73 sq m ESTIMATED GFR IS NOT zgai=9499) ACCURATE CREATININE CLEARANCE IN PREDICTING GLOMERULAR FILTRATION RATE. ESTIMATED GFR IS NOT APPLICABLE FOR DIALYSIS PATIENTS. Specimen slightly ictericPROTHROMBIN [id number] 04:48:00 Test Item Value Reference Range Comments PROTIME (BEAKER) (test fopg=904) 20.9 seconds 11.7-14.7 INR (BEAKER) (test kfed=730) 1.8 <=5.9 RECOMMENDED COUMADIN/WARFARIN INR THERAPY RANGESSTANDARD DOSE: 2.0 - 3.0 Includes: PROPHYLAXIS forvenous thrombosis, systemic embolization; TREATMENT for venous thrombosis and/or pulmonary embolus.HIGH RISK: Target INR is 2.5-3.5 for patients with mechanical heart valves.CBC W/PLT COUNT & AUTO [id number] 04:45:00 Test Item Value Reference Range Comments WHITE BLOOD CELL COUNT (BEAKER) (test jnuh=606) 3.4 K/ L 3.5-10.5 RED BLOOD CELL COUNT (BEAKER) (test bxxc=114) 2.55 M/ L 4.63-6.08 HEMOGLOBIN (BEAKER) (test hflq=955) 8.1 GM/DL 13.7-17.5 HEMATOCRIT (BEAKER) (test sonu=622) 24.0 % 40.1-51.0 MEAN CORPUSCULAR VOLUME (BEAKER) (test dvyf=161) 94.1 fL 79.0-92.2 MEAN CORPUSCULAR HEMOGLOBIN (BEAKER) (test 31.8 pg 25.7-32.2 zoow=967) MEAN CORPUSCULAR HEMOGLOBIN CONC (BEAKER) (test 33.8 GM/DL 32.3-36.5 mfua=084) RED CELL DISTRIBUTION WIDTH (BEAKER) (test 15.8 % 11.6-14.4 xqyu=422) PLATELET COUNT (BEAKER) (test ntpa=570) 41 K/CU MM 150-450 MEAN PLATELET VOLUME (BEAKER) (test bzmk=569) 10.0 fL 9.4-12.4 NUCLEATED RED BLOOD CELLS (BEAKER) (test 0 /100 WBC 0-0 edns=652) NEUTROPHILS RELATIVE PERCENT (BEAKER) (test 63 % deun=130) LYMPHOCYTES RELATIVE PERCENT (BEAKER) (test 19 % dprc=314) MONOCYTES RELATIVE PERCENT (BEAKER) (test 16 % lpnl=044) EOSINOPHILS RELATIVE PERCENT (BEAKER) (test 2 % aevx=523) BASOPHILS RELATIVE PERCENT (BEAKER) (test 0 % kweo=243) NEUTROPHILS ABSOLUTE COUNT (BEAKER) (test 2.13 K/ L 1.78-5.38 ggfk=702) LYMPHOCYTES ABSOLUTE COUNT (BEAKER) (test 0.62 K/ L 1.32-3.57 qfny=888) MONOCYTES ABSOLUTE COUNT (BEAKER) (test wbup=105) 0.52 K/ L 0.30-0.82 EOSINOPHILS ABSOLUTE COUNT (BEAKER) (test 0.08 K/ L 0.04-0.54 nfse=694) BASOPHILS ABSOLUTE COUNT (BEAKER) (test nfhr=719) 0.00 K/ L 0.01-0.08 IMMATURE GRANULOCYTES-RELATIVE PERCENT (BEAKER) 0 % 0-1 (test aqjz=8810) POCT-GLUCOSE [id number] 21:35:00 Test Item Value Reference Range Comments POC-GLUCOSE METER (BEAKER) 215 mg/dL 70-110 TESTED AT [address] (test wseq=8027) [facility] [address] POCT-GLUCOSE [id number] 18:17:00 Test Item Value Reference Range Comments POC-GLUCOSE METER (BEAKER) 149 mg/dL 70-110 TESTED AT [place] [id number] (test genu=3964) [facility] [address] COMPREHENSIVE METABOLIC [id number] 07:34:00 Test Item Value Reference Range Comments TOTAL PROTEIN (BEAKER) 4.7 gm/dL 6.0-8.3 Specimen slightly (test wdjr=456) hemolyzed ALBUMIN (BEAKER) (test 3.0 g/dL 3.5-5.0 Specimen slightly nypi=5865) hemolyzed ALKALINE PHOSPHATASE 107 U/L 40-150 (BEAKER) (test pnmt=159) BILIRUBIN TOTAL (BEAKER) 3.1 mg/dL 0.2-1.2 Specimen slightly (test qjgn=981) hemolyzed SODIUM (BEAKER) (test 125 meq/L 136-145 fzup=255) POTASSIUM (BEAKER) (test 4.9 meq/L 3.5-5.1 Specimen slightly wthj=425) hemolyzed CHLORIDE (BEAKER) (test 96 meq/L 98-107 taws=087) CO2 (BEAKER) (test 24 meq/L 22-29 xtcv=375) BLOOD UREA NITROGEN 30 mg/dL 7-21 (BEAKER) (test krre=720) CREATININE (BEAKER) (test 1.61 mg/dL 0.57-1.25 Specimen slightly gxar=692) hemolyzed GLUCOSE RANDOM (BEAKER) 127 mg/dL 70-105 (test ytlx=472) CALCIUM (BEAKER) (test 8.6 mg/dL 8.4-10.2 xkoq=615) AST (SGOT) (BEAKER) (test 17 U/L 5-34 Specimen slightly qlgn=494) hemolyzed ALT (SGPT) (BEAKER) (test < U/L 6-55 Specimen slightly zxif=203) hemolyzed EGFR (BEAKER) (test 45 mL/min/1.73 sq m ESTIMATED GFR IS NOT qmqp=2026) ACCURATE CREATININE CLEARANCE IN PREDICTING GLOMERULAR FILTRATION RATE. ESTIMATED GFR IS NOT APPLICABLE FOR DIALYSIS PATIENTS. Specimen slightly [id number] 06:49:00 Test Item Value Reference Range Comments PHOSPHORUS (BEAKER) (test wwnr=417) 3.0 mg/dL 2.3-4.7 [id number] 06:49:00 Test Item Value Reference Range Comments MAGNESIUM (BEAKER) (test dkgm=500) 2.0 mg/dL 1.6-2.6 PROTHROMBIN [id number] 06:39:00 Test Item Value Reference Range Comments PROTIME (BEAKER) (test lsfk=228) 23.0 seconds 11.7-14.7 INR (BEAKER) (test vpzt=139) 2.0 <=5.9 RECOMMENDED COUMADIN/WARFARIN INR THERAPY RANGESSTANDARD DOSE: 2.0 - 3.0 Includes: PROPHYLAXIS forvenous thrombosis, systemic embolization; TREATMENT for venous thrombosis and/or pulmonary embolus.HIGH RISK: Target INR is 2.5-3.5 for patients with mechanical heart valves.CBC W/PLT COUNT & AUTO [id number] 06:37:00 Test Item Value Reference Range Comments WHITE BLOOD CELL COUNT (BEAKER) (test lvgo=439) 3.3 K/ L 3.5-10.5 RED BLOOD CELL COUNT (BEAKER) (test tqlg=949) 2.43 M/ L 4.63-6.08 HEMOGLOBIN (BEAKER) (test pbqj=185) 7.8 GM/DL 13.7-17.5 HEMATOCRIT (BEAKER) (test bdvd=669) 22.7 % 40.1-51.0 MEAN CORPUSCULAR VOLUME (BEAKER) (test jetk=445) 93.4 fL 79.0-92.2 MEAN CORPUSCULAR HEMOGLOBIN (BEAKER) (test 32.1 pg 25.7-32.2 oxzq=727) MEAN CORPUSCULAR HEMOGLOBIN CONC (BEAKER) (test 34.4 GM/DL 32.3-36.5 dqai=319) RED CELL DISTRIBUTION WIDTH (BEAKER) (test 15.7 % 11.6-14.4 ltun=048) PLATELET COUNT (BEAKER) (test ilqh=560) 37 K/CU MM 150-450 MEAN PLATELET VOLUME (BEAKER) (test xjpy=073) 9.6 fL 9.4-12.4 NUCLEATED RED BLOOD CELLS (BEAKER) (test 0 /100 WBC 0-0 qwdg=235) NEUTROPHILS RELATIVE PERCENT (BEAKER) (test 70 % diwv=706) LYMPHOCYTES RELATIVE PERCENT (BEAKER) (test 16 % wiso=794) MONOCYTES RELATIVE PERCENT (BEAKER) (test 11 % wyfp=799) EOSINOPHILS RELATIVE PERCENT (BEAKER) (test 2 % wipe=330) BASOPHILS RELATIVE PERCENT (BEAKER) (test 0 % uysb=736) NEUTROPHILS ABSOLUTE COUNT (BEAKER) (test 2.29 K/ L 1.78-5.38 vewi=036) LYMPHOCYTES ABSOLUTE COUNT (BEAKER) (test 0.51 K/ L 1.32-3.57 lbsw=668) MONOCYTES ABSOLUTE COUNT (BEAKER) (test kgxd=692) 0.37 K/ L 0.30-0.82 EOSINOPHILS ABSOLUTE COUNT (BEAKER) (test 0.07 K/ L 0.04-0.54 oguz=290) BASOPHILS ABSOLUTE COUNT (BEAKER) (test orby=800) 0.01 K/ L 0.01-0.08 IMMATURE GRANULOCYTES-RELATIVE PERCENT (BEAKER) 0 % 0-1 (test ocbb=1701) CALCIUM, [id number] 06:36:00 Test Item Value Reference Range Comments CALCIUM IONIZED (BEAKER) (test nqqh=551) 1.00 mmol/L 1.12-1.27 PH, BLOOD (BEAKER) (test cpef=9072) 7.53 POCT-GLUCOSE [id number] 22:31:00 Test Item Value Reference Range Comments POC-GLUCOSE METER (BEAKER) 185 mg/dL 70-110 TESTED AT [address] (test supr=6068) [facility] [address] POCT-GLUCOSE [id number] 16:03:00 Test Item Value Reference Range Comments POC-GLUCOSE METER (BEAKER) 166 mg/dL 70-110 TESTED AT [address] (test mrim=4167) [facility] [address] POCT-GLUCOSE [id number] 12:05:00 Test Item Value Reference Range Comments POC-GLUCOSE METER (BEAKER) 175 mg/dL 70-110 TESTED AT [address] (test iprh=4723) [facility] [address] POCT-GLUCOSE [id number] 08:02:00 Test Item Value Reference Range Comments POC-GLUCOSE METER (BEAKER) 162 mg/dL 70-110 TESTED AT [address] (test xbmz=5768) [place] [address] [id number] 03:52:00 Test Item Value Reference Range Comments MAGNESIUM (BEAKER) (test 2.1 mg/dL 1.6-2.6 Specimen slightly hemolyzed aart=322) [id number] 03:52:00 Test Item Value Reference Range Comments PHOSPHORUS (BEAKER) (test 3.0 mg/dL 2.3-4.7 Specimen slightly hemolyzed jswq=046) COMPREHENSIVE METABOLIC [id number] 03:52:00 Test Item Value Reference Range Comments TOTAL PROTEIN (BEAKER) 4.9 gm/dL 6.0-8.3 Specimen slightly (test azdp=989) hemolyzed ALBUMIN (BEAKER) (test 3.2 g/dL 3.5-5.0 Specimen slightly uwqc=8590) hemolyzed ALKALINE PHOSPHATASE 109 U/L 40-150 (BEAKER) (test cmmz=087) BILIRUBIN TOTAL (BEAKER) 2.7 mg/dL 0.2-1.2 Specimen slightly (test rtdu=019) hemolyzed SODIUM (BEAKER) (test 125 meq/L 136-145 awsl=922) POTASSIUM (BEAKER) (test 4.7 meq/L 3.5-5.1 Specimen slightly wasi=349) hemolyzed CHLORIDE (BEAKER) (test 96 meq/L 98-107 dcyd=655) CO2 (BEAKER) (test 23 meq/L 22-29 rnua=007) BLOOD UREA NITROGEN 27 mg/dL 7-21 (BEAKER) (test xrhv=274) CREATININE (BEAKER) (test 1.86 mg/dL 0.57-1.25 Specimen slightly cyfv=044) hemolyzed GLUCOSE RANDOM (BEAKER) 164 mg/dL 70-105 (test yyjt=501) CALCIUM (BEAKER) (test 8.4 mg/dL 8.4-10.2 whni=989) AST (SGOT) (BEAKER) (test 17 U/L 5-34 Specimen slightly hziz=902) hemolyzed ALT (SGPT) (BEAKER) (test 6 U/L 6-55 Specimen slightly syzw=430) hemolyzed EGFR (BEAKER) (test 38 mL/min/1.73 sq m ESTIMATED GFR IS NOT aiwz=8882) ACCURATE CREATININE CLEARANCE IN PREDICTING GLOMERULAR FILTRATION RATE. ESTIMATED GFR IS NOT APPLICABLE FOR DIALYSIS PATIENTS. Specimen slightly ictericCALCIUM, [id number] 03:13:00 Test Item Value Reference Range Comments CALCIUM IONIZED (BEAKER) (test qobs=282) 0.94 mmol/L 1.12-1.27 PH, BLOOD (BEAKER) (test zzoj=9784) 7.55 PROTHROMBIN [id number] 03:10:00 Test Item Value Reference Range Comments PROTIME (BEAKER) (test lrha=225) 22.6 seconds 11.7-14.7 INR (BEAKER) (test neux=862) 2.0 <=5.9 RECOMMENDED COUMADIN/WARFARIN INR THERAPY RANGESSTANDARD DOSE: 2.0 - 3.0 Includes: PROPHYLAXIS forvenous thrombosis, systemic embolization; TREATMENT for venous thrombosis and/or pulmonary embolus.HIGH RISK: Target INR is 2.5-3.5 for patients with mechanical heart valves.CBC W/PLT COUNT & AUTO [id number] 03:03:00 Test Item Value Reference Range Comments WHITE BLOOD CELL COUNT (BEAKER) (test kivo=176) 3.4 K/ L 3.5-10.5 RED BLOOD CELL COUNT (BEAKER) (test wggl=822) 2.46 M/ L 4.63-6.08 HEMOGLOBIN (BEAKER) (test xkjd=869) 7.8 GM/DL 13.7-17.5 HEMATOCRIT (BEAKER) (test dscj=492) 23.5 % 40.1-51.0 MEAN CORPUSCULAR VOLUME (BEAKER) (test jwhp=987) 95.5 fL 79.0-92.2 MEAN CORPUSCULAR HEMOGLOBIN (BEAKER) (test 31.7 pg 25.7-32.2 kdgs=564) MEAN CORPUSCULAR HEMOGLOBIN CONC (BEAKER) (test 33.2 GM/DL 32.3-36.5 pnxt=580) RED CELL DISTRIBUTION WIDTH (BEAKER) (test 15.6 % 11.6-14.4 gvdk=828) PLATELET COUNT (BEAKER) (test nusz=918) 44 K/CU MM 150-450 MEAN PLATELET VOLUME (BEAKER) (test xrcv=129) 10.6 fL 9.4-12.4 NUCLEATED RED BLOOD CELLS (BEAKER) (test 0 /100 WBC 0-0 kmpn=887) NEUTROPHILS RELATIVE PERCENT (BEAKER) (test 79 % xjip=420) LYMPHOCYTES RELATIVE PERCENT (BEAKER) (test 12 % tyrj=994) MONOCYTES RELATIVE PERCENT (BEAKER) (test 8 % xpmg=271) EOSINOPHILS RELATIVE PERCENT (BEAKER) (test 0 % qoel=525) BASOPHILS RELATIVE PERCENT (BEAKER) (test 0 % srid=006) NEUTROPHILS ABSOLUTE COUNT (BEAKER) (test 2.67 K/ L 1.78-5.38 vljq=899) LYMPHOCYTES ABSOLUTE COUNT (BEAKER) (test 0.41 K/ L 1.32-3.57 jmnh=940) MONOCYTES ABSOLUTE COUNT (BEAKER) (test plve=393) 0.27 K/ L 0.30-0.82 EOSINOPHILS ABSOLUTE COUNT (BEAKER) (test 0.01 K/ L 0.04-0.54 esym=723) BASOPHILS ABSOLUTE COUNT (BEAKER) (test qkoz=362) 0.01 K/ L 0.01-0.08 IMMATURE GRANULOCYTES-RELATIVE PERCENT (BEAKER) 0 % 0-1 (test yvrg=2910) POCT-GLUCOSE [id number] 22:50:00 Test Item Value Reference Range Comments POC-GLUCOSE METER (BEAKER) 199 mg/dL 70-110 TESTED AT [facility] [address] [facility] (test ezds=8081) [facility] [address] BODY FLUID CELL COUNT WITH [id number] 21:09:00 Test Item Value Reference Range Comments APPEARANCE FLUID (BEAKER) (test ewfj=236) Clear Clear COLOR FLUID (BEAKER) (test nsat=005) Yellow Colorless, Straw RBC FLUID (BEAKER) (test hclu=740) 140 /cu mm <=1 ADJUSTED WBC FLUID (BEAKER) (test yumo=1647) 70 /cu mm <=5 LINING CELLS (BEAKER) (test pivu=5142) 0 /cu mm <=1 NEUTROPHILS FLUID (BEAKER) (test bwkg=7229) 5 % LYMPHS FLUID (BEAKER) (test byyt=188) 18 % MONO/MACROPHAGE FLUID (BEAKER) (test hfde=898) 77 % EOSINOPHILS FLUID (BEAKER) (test wkyp=539) 0 % BASO FLUID (BEAKER) (test ynzg=700) 0 % CONTAINER BODY FLUID (BEAKER) (test jujd=6111) EDTA Tube CORTISOL,60 [id number] 20:10:00 Test Item Value Reference Range Comments CORTISOL BASELINE NETWORKED (BEAKER) (test 5.6 mcg/dL mzkl=7171) CORTISOL 30 MINUTE NETWORKED (BEAKER) (test 13.7 mcg/dL mkzy=7017) CORTISOL, 60 MINUTE (BEAKER) (test dnfh=3643) 17.1 ug/dL ACTH STIMULATION TEST INTERPRETATION GUIDELINES(Synonyms: [...] serum cortisollevel 60 minutes after cosyntropin administration.CORTISOL,30 [id number] 19:45:00 Test Item Value Reference Range Comments CORTISOL BASELINE NETWORKED (BEAKER) (test 5.6 mcg/dL uggb=0402) CORTISOL, 30 MINUTE (BEAKER) (test pqkw=4043) 13.7 ug/dL ACTH STIMULATION TEST INTERPRETATION GUIDELINES(Synonyms: [...] serum cortisollevel 60 minutes after cosyntropin administration.U/S, [id number] 19:13:00Reason for exam:->therapeuticFINAL REPORT PROCEDURE: Ultrasound- guided paracentesis. INDICATION: Ascites. DESCRIPTION: After obtaining informed written consent, ultrasound scan of the abdomen identified ascites in the right lower quadrant. The overlying skin was prepped and draped in the usual, sterile fashion and local 1% lidocaine anesthesia was administered. A 5 [place] catheter was advanced into the peritoneal cavity and 6000 mL of area fluid was removed. The catheter was removed without immediate complication. Samples were sent for analysis. IMPRESSION:Uncomplicated ultrasound-guided paracentesis with 6000 mL of fluid removed. Signed: Stuart Dupree Verified Date/Time: 09/08/2018 19 :13:16 Reading Location: [address] Ultrasound Reading Room Electronically signed by: Claudia WEAVER 09/08/2018 07:13 PMCORTISOL, [id number] 18:54:00 Test Item Value Reference Range Comments CORTISOL, BASELINE (TUNG) (test bebz=7842) 5.6 ug/dL ACTH STIMULATION TEST INTERPRETATION GUIDELINES(Synonyms: [...] study by Mindy et al (NEVAEH 2000,283( 8):4314-45), the ACTH Stimulation Test provides important prognostic [...] serum cortisollevel 60 minutes after cosyntropin administration.POCT-GLUCOSE [id number] 12:49:00 Test Item Value Reference Range Comments POC-GLUCOSE METER (BEAKER) 184 mg/dL 70-110 TESTED AT [address] (test kugi=0312) [place] [address] POCT-GLUCOSE [id number] 07:56:00 Test Item Value Reference Range Comments POC-GLUCOSE METER (BEAKER) 174 mg/dL 70-110 TESTED AT [address] (test tpxb=0485) [place] [address] B-TYPE NATRIURETIC FACTOR (BNP)2018-09-08 05:20:00 Test Item Value Reference Range Comments B-TYPE NATRIURETIC PEPTIDE (BEAKER) (test 900 pg/mL 0-100 uuoz=833) [id number] 05:15:00 Test Item Value Reference Range Comments PHOSPHORUS (BEAKER) (test aglf=853) 3.2 mg/dL 2.3-4.7 [id number] 05:15:00 Test Item Value Reference Range Comments MAGNESIUM (BEAKER) (test zdvl=144) 2.1 mg/dL 1.6-2.6 COMPREHENSIVE METABOLIC [id number] 05:15:00 Test Item Value Reference Range Comments TOTAL PROTEIN (BEAKER) 4.9 gm/dL 6.0-8.3 (test lvcg=747) ALBUMIN (BEAKER) (test 3.2 g/dL 3.5-5.0 tqps=9808) ALKALINE PHOSPHATASE 109 U/L 40-150 (BEAKER) (test zmih=695) BILIRUBIN TOTAL (BEAKER) 2.7 mg/dL 0.2-1.2 (test dszx=216) SODIUM (BEAKER) (test 128 meq/L 136-145 jvpw=342) POTASSIUM (BEAKER) (test 3.9 meq/L 3.5-5.1 tfzo=041) CHLORIDE (BEAKER) (test 98 meq/L 98-107 lotr=982) CO2 (BEAKER) (test 23 meq/L 22-29 hlhz=110) BLOOD UREA NITROGEN 27 mg/dL 7-21 (BEAKER) (test viso=940) CREATININE (BEAKER) (test 2.17 mg/dL 0.57-1.25 wxic=597) GLUCOSE RANDOM (BEAKER) 136 mg/dL 70-105 (test hwla=116) CALCIUM (BEAKER) (test 8.6 mg/dL 8.4-10.2 lncm=748) AST (SGOT) (BEAKER) (test 15 U/L 5-34 ieyl=065) ALT (SGPT) (BEAKER) (test 7 U/L 6-55 mlmv=581) EGFR (BEAKER) (test 32 mL/min/1.73 sq m ESTIMATED GFR IS NOT qxdf=2931) ACCURATE CREATININE CLEARANCE IN PREDICTING GLOMERULAR FILTRATION RATE. ESTIMATED GFR IS NOT APPLICABLE FOR DIALYSIS PATIENTS. Specimen slightly ictericPROTHROMBIN TIME/[id number] 05:01:00 Test Item Value Reference Range Comments PROTIME (BEAKER) (test fjio=726) 22.0 seconds 11.7-14.7 INR (BEAKER) (test xmkk=410) 1.9 <=5.9 RECOMMENDED COUMADIN/WARFARIN INR THERAPY RANGESSTANDARD DOSE: 2.0 - 3.0 Includes: PROPHYLAXIS forvenous thrombosis, systemic embolization; TREATMENT for venous thrombosis and/or pulmonary embolus.HIGH RISK: Target INR is 2.5-3.5 for patients with mechanical heart valves.CBC W/PLT COUNT & AUTO [id number] 04:55:00 Test Item Value Reference Range Comments WHITE BLOOD CELL COUNT (BEAKER) (test uyor=630) 4.3 K/ L 3.5-10.5 RED BLOOD CELL COUNT (BEAKER) (test yyxd=648) 2.46 M/ L 4.63-6.08 HEMOGLOBIN (BEAKER) (test ridk=207) 7.9 GM/DL 13.7-17.5 HEMATOCRIT (BEAKER) (test jlgc=132) 23.3 % 40.1-51.0 MEAN CORPUSCULAR VOLUME (BEAKER) (test effb=593) 94.7 fL 79.0-92.2 MEAN CORPUSCULAR HEMOGLOBIN (BEAKER) (test 32.1 pg 25.7-32.2 hncu=597) MEAN CORPUSCULAR HEMOGLOBIN CONC (BEAKER) (test 33.9 GM/DL 32.3-36.5 sbcg=800) RED CELL DISTRIBUTION WIDTH (BEAKER) (test 15.6 % 11.6-14.4 pnxn=444) PLATELET COUNT (BEAKER) (test bwxk=545) 43 K/CU MM 150-450 MEAN PLATELET VOLUME (BEAKER) (test klpj=865) 9.6 fL 9.4-12.4 NUCLEATED RED BLOOD CELLS (BEAKER) (test 0 /100 WBC 0-0 pbfk=750) NEUTROPHILS RELATIVE PERCENT (BEAKER) (test 63 % jdyv=760) LYMPHOCYTES RELATIVE PERCENT (BEAKER) (test 13 % pzyv=907) MONOCYTES RELATIVE PERCENT (BEAKER) (test 19 % ocmu=457) EOSINOPHILS RELATIVE PERCENT (BEAKER) (test 5 % vlco=957) BASOPHILS RELATIVE PERCENT (BEAKER) (test 0 % arie=988) NEUTROPHILS ABSOLUTE COUNT (BEAKER) (test 2.72 K/ L 1.78-5.38 fdtk=505) LYMPHOCYTES ABSOLUTE COUNT (BEAKER) (test 0.55 K/ L 1.32-3.57 waup=130) MONOCYTES ABSOLUTE COUNT (BEAKER) (test ysaf=885) 0.81 K/ L 0.30-0.82 EOSINOPHILS ABSOLUTE COUNT (BEAKER) (test 0.21 K/ L 0.04-0.54 pcyl=423) BASOPHILS ABSOLUTE COUNT (BEAKER) (test sgog=285) 0.01 K/ L 0.01-0.08 IMMATURE GRANULOCYTES-RELATIVE PERCENT (BEAKER) 0 % 0-1 (test rsis=4937) POCT-GLUCOSE [id number] 23:33:00 Test Item Value Reference Range Comments POC-GLUCOSE METER (BEAKER) 156 mg/dL 70-110 TESTED AT [facility] [address] (test xvtm=2525) [facility] [address] POCT-GLUCOSE [id number] 18:09:00 Test Item Value Reference Range Comments POC-GLUCOSE METER (BEAKER) 170 mg/dL 70-110 TESTED AT [address] (test uaxr=1207) [facility] [address] POCT-GLUCOSE [id number] 12:01:00 Test Item Value Reference Range Comments POC-GLUCOSE METER (BEAKER) 181 mg/dL 70-110 TESTED AT [address] (test skvv=1793) [facility] [id number] PROTHROMBIN [id number] 08:17:00 Test Item Value Reference Range Comments PROTIME (BEAKER) (test ppsn=741) 21.9 seconds 11.7-14.7 INR (BEAKER) (test xcno=049) 1.9 <=5.9 RECOMMENDED COUMADIN/WARFARIN INR THERAPY RANGESSTANDARD DOSE: 2.0 - 3.0 Includes: PROPHYLAXIS forvenous thrombosis, systemic embolization; TREATMENT for venous thrombosis and/or pulmonary embolus.HIGH RISK: Target INR is 2.5-3.5 for patients with mechanical heart valves.POCT-GLUCOSE [id number] 08:07:00 Test Item Value Reference Range Comments POC-GLUCOSE METER (BEAKER) 205 mg/dL 70-110 TESTED AT [address] (test dzwo=7299) [facility] [address] COMPREHENSIVE METABOLIC [id number] 07:29:00 Test Item Value Reference Range Comments TOTAL PROTEIN (BEAKER) 4.9 gm/dL 6.0-8.3 (test kfwf=632) ALBUMIN (BEAKER) (test 3.3 g/dL 3.5-5.0 ldaw=7185) ALKALINE PHOSPHATASE 106 U/L 40-150 (BEAKER) (test yuxr=207) BILIRUBIN TOTAL (BEAKER) 2.6 mg/dL 0.2-1.2 (test svry=631) SODIUM (BEAKER) (test 129 meq/L 136-145 lswr=692) POTASSIUM (BEAKER) (test 4.9 meq/L 3.5-5.1 etbe=439) CHLORIDE (BEAKER) (test 98 meq/L 98-107 teoz=511) CO2 (BEAKER) (test 23 meq/L 22-29 owsu=796) BLOOD UREA NITROGEN 28 mg/dL 7-21 (BEAKER) (test hans=881) CREATININE (BEAKER) (test 2.31 mg/dL 0.57-1.25 qsdf=799) GLUCOSE RANDOM (BEAKER) 172 mg/dL 70-105 (test pcrn=081) CALCIUM (BEAKER) (test 8.5 mg/dL 8.4-10.2 sbrf=569) AST (SGOT) (BEAKER) (test 15 U/L 5-34 shvz=727) ALT (SGPT) (BEAKER) (test 6 U/L 6-55 wyrf=627) EGFR (BEAKER) (test 30 mL/min/1.73 sq m ESTIMATED GFR IS NOT phuz=6216) ACCURATE CREATININE CLEARANCE IN PREDICTING GLOMERULAR FILTRATION RATE. ESTIMATED GFR IS NOT APPLICABLE FOR DIALYSIS PATIENTS. Specimen slightly ictericCBC W/PLT COUNT & AUTO [id number] 07:11 :00 Test Item Value Reference Range Comments WHITE BLOOD CELL COUNT (BEAKER) (test xupl=687) 4.5 K/ L 3.5-10.5 RED BLOOD CELL COUNT (BEAKER) (test txyp=941) 2.47 M/ L 4.63-6.08 HEMOGLOBIN (BEAKER) (test beiv=554) 7.8 GM/DL 13.7-17.5 HEMATOCRIT (BEAKER) (test bpmp=624) 23.3 % 40.1-51.0 MEAN CORPUSCULAR VOLUME (BEAKER) (test nopf=799) 94.3 fL 79.0-92.2 MEAN CORPUSCULAR HEMOGLOBIN (BEAKER) (test 31.6 pg 25.7-32.2 aaam=384) MEAN CORPUSCULAR HEMOGLOBIN CONC (BEAKER) (test 33.5 GM/DL 32.3-36.5 nybs=926) RED CELL DISTRIBUTION WIDTH (BEAKER) (test 15.4 % 11.6-14.4 hxbn=966) PLATELET COUNT (BEAKER) (test pizk=707) 43 K/CU MM 150-450 MEAN PLATELET VOLUME (BEAKER) (test jywh=858) 8.7 fL 9.4-12.4 NUCLEATED RED BLOOD CELLS (BEAKER) (test 0 /100 WBC 0-0 kkno=079) NEUTROPHILS RELATIVE PERCENT (BEAKER) (test 64 % ignm=356) LYMPHOCYTES RELATIVE PERCENT (BEAKER) (test 11 % kzoz=749) MONOCYTES RELATIVE PERCENT (BEAKER) (test 20 % dybo=437) EOSINOPHILS RELATIVE PERCENT (BEAKER) (test 4 % qogv=303) BASOPHILS RELATIVE PERCENT (BEAKER) (test 0 % drgo=288) NEUTROPHILS ABSOLUTE COUNT (BEAKER) (test 2.86 K/ L 1.78-5.38 qmjj=912) LYMPHOCYTES ABSOLUTE COUNT (BEAKER) (test 0.49 K/ L 1.32-3.57 keoy=388) MONOCYTES ABSOLUTE COUNT (BEAKER) (test djgj=637) 0.90 K/ L 0.30-0.82 EOSINOPHILS ABSOLUTE COUNT (BEAKER) (test 0.18 K/ L 0.04-0.54 zpus=723) BASOPHILS ABSOLUTE COUNT (BEAKER) (test rcjy=608) 0.02 K/ L 0.01-0.08 IMMATURE GRANULOCYTES-RELATIVE PERCENT (BEAKER) 0 % 0-1 (test tvxh=2204) POCT-GLUCOSE [id number] 22:31:00 Test Item Value Reference Range Comments POC-GLUCOSE METER (BEAKER) 161 mg/dL 70-110 TESTED AT [address] (test ovpp=7891) [place] [id number] POCT-GLUCOSE [id number] 16:31:00 Test Item Value Reference Range Comments POC-GLUCOSE METER (BEAKER) 135 mg/dL 70-110 TESTED AT [address] (test cdhn=3475) [place] [id number] POCT-GLUCOSE [id number] 12:16:00 Test Item Value Reference Range Comments POC-GLUCOSE METER (BEAKER) 144 mg/dL 70-110 TESTED AT [address] (test ovmi=1452) [facility] [address] POCT-GLUCOSE [id number] 07:53:00 Test Item Value Reference Range Comments POC-GLUCOSE METER (BEAKER) 93 mg/dL 70-110 TESTED AT [address] (test ykbp=0492) [facility] [address] COMPREHENSIVE METABOLIC [id number] 06:55:00 Test Item Value Reference Range Comments TOTAL PROTEIN (BEAKER) 4.8 gm/dL 6.0-8.3 (test eurk=224) ALBUMIN (BEAKER) (test 3.3 g/dL 3.5-5.0 irte=7976) ALKALINE PHOSPHATASE 103 U/L 40-150 (BEAKER) (test havy=494) BILIRUBIN TOTAL (BEAKER) 2.7 mg/dL 0.2-1.2 (test xwot=507) SODIUM (BEAKER) (test 125 meq/L 136-145 nndt=707) POTASSIUM (BEAKER) (test 4.6 meq/L 3.5-5.1 uypz=654) CHLORIDE (BEAKER) (test 96 meq/L 98-107 ztjo=033) CO2 (BEAKER) (test 22 meq/L 22-29 hyna=253) BLOOD UREA NITROGEN 30 mg/dL 7-21 (BEAKER) (test nmpt=842) CREATININE (BEAKER) (test 2.01 mg/dL 0.57-1.25 porc=137) GLUCOSE RANDOM (BEAKER) 88 mg/dL 70-105 (test xeup=833) CALCIUM (BEAKER) (test 8.5 mg/dL 8.4-10.2 aggj=421) AST (SGOT) (BEAKER) (test 17 U/L 5-34 zkpn=348) ALT (SGPT) (BEAKER) (test 7 U/L 6-55 gngb=778) EGFR (BEAKER) (test 35 mL/min/1.73 sq m ESTIMATED GFR IS NOT zknw=2908) ACCURATE CREATININE CLEARANCE IN PREDICTING GLOMERULAR FILTRATION RATE. ESTIMATED GFR IS NOT APPLICABLE FOR DIALYSIS PATIENTS. Specimen slightly ictericPROTHROMBIN [id number] 06:10:00 Test Item Value Reference Range Comments PROTIME (BEAKER) (test natn=447) 23.2 seconds 11.7-14.7 INR (BEAKER) (test ehhj=623) 2.1 <=5.9 RECOMMENDED COUMADIN/WARFARIN INR THERAPY RANGESSTANDARD DOSE: 2.0 - 3.0 Includes: PROPHYLAXIS forvenous thrombosis, systemic embolization; TREATMENT for venous thrombosis and/or pulmonary embolus.HIGH RISK: Target INR is 2.5-3.5 for patients with mechanical heart valves.POCT-GLUCOSE [id number] 22:42:00 Test Item Value Reference Range Comments POC-GLUCOSE METER (BEAKER) 124 mg/dL 70-110 TESTED AT [address] (test yvqn=4322) [facility] [address] POCT-GLUCOSE [id number] 17:04:00 Test Item Value Reference Range Comments POC-GLUCOSE METER (BEAKER) 86 mg/dL 70-110 TESTED AT [address] (test uglp=4310) [facility] [address] POCT-GLUCOSE [id number] 12:08:00 Test Item Value Reference Range Comments POC-GLUCOSE METER (BEAKER) 159 mg/dL 70-110 TESTED AT [facility] [address] [facility] (test vosg=8454) [facility] [address] [id number] 08:39:00 Test Item Value Reference Range Comments PHOSPHORUS (BEAKER) (test qjiu=976) 3.9 mg/dL 2.3-4.7 [id number] 08:39:00 Test Item Value Reference Range Comments MAGNESIUM (BEAKER) (test pige=409) 2.1 mg/dL 1.6-2.6 COMPREHENSIVE METABOLIC [id number] 08:39:00 Test Item Value Reference Range Comments TOTAL PROTEIN (BEAKER) 5.2 gm/dL 6.0-8.3 (test rrva=580) ALBUMIN (BEAKER) (test 3.5 g/dL 3.5-5.0 qtjq=4852) ALKALINE PHOSPHATASE 110 U/L 40-150 (BEAKER) (test eiox=887) BILIRUBIN TOTAL (BEAKER) 2.4 mg/dL 0.2-1.2 (test bnjr=123) SODIUM (BEAKER) (test 122 meq/L 136-145 stej=261) POTASSIUM (BEAKER) (test 4.5 meq/L 3.5-5.1 mbnh=970) CHLORIDE (BEAKER) (test 94 meq/L 98-107 dhdz=109) CO2 (BEAKER) (test 20 meq/L 22-29 qpon=471) BLOOD UREA NITROGEN 31 mg/dL 7-21 (BEAKER) (test kjmf=707) CREATININE (BEAKER) (test 1.94 mg/dL 0.57-1.25 iunh=016) GLUCOSE RANDOM (BEAKER) 127 mg/dL 70-105 (test ycol=416) CALCIUM (BEAKER) (test 8.6 mg/dL 8.4-10.2 utyw=489) AST (SGOT) (BEAKER) (test 17 U/L 5-34 sdmy=083) ALT (SGPT) (BEAKER) (test 8 U/L 6-55 gphe=480) EGFR (BEAKER) (test 36 mL/min/1.73 sq m ESTIMATED GFR IS NOT mqtp=7443) ACCURATE CREATININE CLEARANCE IN PREDICTING GLOMERULAR FILTRATION RATE. ESTIMATED GFR IS NOT APPLICABLE FOR DIALYSIS PATIENTS. Specimen slightly ictericPOCT-GLUCOSE [id number] 07:49:00 Test Item Value Reference Range Comments POC-GLUCOSE METER (BEAKER) 132 mg/dL 70-110 TESTED AT [facility] [address] [facility] (test nboo=1349) [place] [address] CALCIUM, [id number] 06:35:00 Test Item Value Reference Range Comments CALCIUM IONIZED (BEAKER) (test lnrw=289) 1.08 mmol/L 1.12-1.27 PH, BLOOD (BEAKER) (test olmy=1828) 7.39 CBC W/PLT COUNT & AUTO [id number] 05:56:00 Test Item Value Reference Range Comments WHITE BLOOD CELL COUNT (BEAKER) (test vvyj=623) 4.1 K/ L 3.5-10.5 RED BLOOD CELL COUNT (BEAKER) (test ntdb=901) 2.67 M/ L 4.63-6.08 HEMOGLOBIN (BEAKER) (test besx=214) 8.3 GM/DL 13.7-17.5 HEMATOCRIT (BEAKER) (test gukr=091) 24.7 % 40.1-51.0 MEAN CORPUSCULAR VOLUME (BEAKER) (test wqbm=540) 92.5 fL 79.0-92.2 MEAN CORPUSCULAR HEMOGLOBIN (BEAKER) (test 31.1 pg 25.7-32.2 lbcd=493) MEAN CORPUSCULAR HEMOGLOBIN CONC (BEAKER) (test 33.6 GM/DL 32.3-36.5 zzvz=415) RED CELL DISTRIBUTION WIDTH (BEAKER) (test 15.0 % 11.6-14.4 mdmg=266) PLATELET COUNT (BEAKER) (test kclj=792) 58 K/CU MM 150-450 MEAN PLATELET VOLUME (BEAKER) (test gxwn=240) 9.3 fL 9.4-12.4 NUCLEATED RED BLOOD CELLS (BEAKER) (test 0 /100 WBC 0-0 umye=532) NEUTROPHILS RELATIVE PERCENT (BEAKER) (test 64 % dnju=641) LYMPHOCYTES RELATIVE PERCENT (BEAKER) (test 12 % ilgt=450) MONOCYTES RELATIVE PERCENT (BEAKER) (test 18 % nwxn=426) EOSINOPHILS RELATIVE PERCENT (BEAKER) (test 5 % fphl=094) BASOPHILS RELATIVE PERCENT (BEAKER) (test 0 % ikfm=773) NEUTROPHILS ABSOLUTE COUNT (BEAKER) (test 2.63 K/ L 1.78-5.38 dxnq=483) LYMPHOCYTES ABSOLUTE COUNT (BEAKER) (test 0.51 K/ L 1.32-3.57 ncrm=744) MONOCYTES ABSOLUTE COUNT (BEAKER) (test fofa=730) 0.74 K/ L 0.30-0.82 EOSINOPHILS ABSOLUTE COUNT (BEAKER) (test 0.21 K/ L 0.04-0.54 knge=965) BASOPHILS ABSOLUTE COUNT (BEAKER) (test tyqg=400) 0.01 K/ L 0.01-0.08 IMMATURE GRANULOCYTES-RELATIVE PERCENT (BEAKER) 1 % 0-1 (test usfj=4055) PROTHROMBIN [id number] 05:49:00 Test Item Value Reference Range Comments PROTIME (BEAKER) (test epmx=215) 20.4 seconds 11.7-14.7 INR (BEAKER) (test fsbo=468) 1.8 <=5.9 RECOMMENDED COUMADIN/WARFARIN INR THERAPY RANGESSTANDARD DOSE: 2.0 - 3.0 Includes: PROPHYLAXIS forvenous thrombosis, systemic embolization; TREATMENT for venous thrombosis and/or pulmonary embolus.HIGH RISK: Target INR is 2.5-3.5 for patients with mechanical heart valves.[id number] 22:31:00 Test Item Value Reference Range Comments SODIUM (BEAKER) (test cjqu=249) 123 meq/L 136-145 POTASSIUM (BEAKER) (test fmdk=052) 4.5 meq/L 3.5-5.1 CHLORIDE (BEAKER) (test fvjp=530) 94 meq/L 98-107 CO2 (BEAKER) (test icex=000) 22 meq/L 22-29 Call results "at a decent hour" to [phone]-GLUCOSE [id number] 21: 48:00 Test Item Value Reference Range Comments POC-GLUCOSE METER (BEAKER) 144 mg/dL 70-110 TESTED AT [facility] [address] [facility] (test nizg=6325) [facility] [address] [id number] 17:27:00 Test Item Value Reference Range Comments CORTISOL, TOTAL (BEAKER) (test odkz=6020) 1.9 ug/dL 3.7-19.4 [id number] 17:03:00 Test Item Value Reference Range Comments SODIUM (BEAKER) (test dfxj=029) 123 meq/L 136-145 POTASSIUM (BEAKER) (test owbc=836) 4.7 meq/L 3.5-5.1 CHLORIDE (BEAKER) (test jjyo=049) 95 meq/L 98-107 CO2 (BEAKER) (test mjcz=022) 21 meq/L 22-29 Call resultsPOCT-GLUCOSE [id number] 16:48:00 Test Item Value Reference Range Comments POC-GLUCOSE METER (BEAKER) 117 mg/dL 70-110 TESTED AT [address] (test frlc=7447) [place] [address] SODIUM, RANDOM [id number] 15:12:00 Test Item Value Reference Range Comments SODIUM URINE (BEAKER) (test ekgn=193) < meq/L Reference Range: No NormalsCREATININE, RANDOM [id number] 15:11:00 Test Item Value Reference Range Comments CREATININE URINE (BEAKER) (test zkko=924) 87.5 mg/dL Reference Range: No NormalsOSMOLALITY, [id number] 15:05:00 Test Item Value Reference Range Comments OSMOLALITY URINE (BEAKER) (test bedl=868) 234 mOsm/kg 40-1,400 POCT-GLUCOSE [id number] 13:14:00 Test Item Value Reference Range Comments POC-GLUCOSE METER (BEAKER) 129 mg/dL 70-110 TESTED AT [address] (test ksja=2698) [place] [address] [id number] 10:06:00 Test Item Value Reference Range Comments SODIUM (BEAKER) (test filb=252) 120 meq/L 136-145 POTASSIUM (BEAKER) (test oyjz=052) 4.6 meq/L 3.5-5.1 CHLORIDE (BEAKER) (test yccp=456) 93 meq/L 98-107 CO2 (BEAKER) (test pjpt=523) 23 meq/L 22-29 Call [id number] 09:01:00 Test Item Value Reference Range Comments POC-GLUCOSE METER (BEAKER) 97 mg/dL 70-110 TESTED AT [facility] [address] (test yafa=0956) [facility] [address] COMPREHENSIVE METABOLIC [id number] 08:40:00 Test Item Value Reference Range Comments TOTAL PROTEIN (BEAKER) 5.2 gm/dL 6.0-8.3 (test gwvc=928) ALBUMIN (BEAKER) (test 3.7 g/dL 3.5-5.0 clep=0000) ALKALINE PHOSPHATASE 104 U/L 40-150 (BEAKER) (test eswf=163) BILIRUBIN TOTAL (BEAKER) 3.3 mg/dL 0.2-1.2 (test hvup=455) SODIUM (BEAKER) (test 120 meq/L 136-145 wjtb=853) POTASSIUM (BEAKER) (test 4.8 meq/L 3.5-5.1 pgnw=169) CHLORIDE (BEAKER) (test 93 meq/L 98-107 mfla=764) CO2 (BEAKER) (test 20 meq/L 22-29 zzpv=233) BLOOD UREA NITROGEN 31 mg/dL 7-21 (BEAKER) (test uzsl=431) CREATININE (BEAKER) (test 1.72 mg/dL 0.57-1.25 dhyv=360) GLUCOSE RANDOM (BEAKER) 99 mg/dL 70-105 (test rcdz=739) CALCIUM (BEAKER) (test 8.9 mg/dL 8.4-10.2 fgbe=252) AST (SGOT) (BEAKER) (test 16 U/L 5-34 fltv=752) ALT (SGPT) (BEAKER) (test < U/L 6-55 fqtq=782) EGFR (BEAKER) (test 42 mL/min/1.73 sq m ESTIMATED GFR IS NOT iqnv=4624) ACCURATE CREATININE CLEARANCE IN PREDICTING GLOMERULAR FILTRATION RATE. ESTIMATED GFR IS NOT APPLICABLE FOR DIALYSIS PATIENTS. Specimen slightly [id number] 08:14:00 Test Item Value Reference Range Comments PHOSPHORUS (BEAKER) (test yrkn=908) 3.8 mg/dL 2.3-4.7 [id number] 08:14:00 Test Item Value Reference Range Comments MAGNESIUM (BEAKER) (test iimu=512) 2.1 mg/dL 1.6-2.6 CALCIUM, [id number] 06:56:00 Test Item Value Reference Range Comments CALCIUM IONIZED (BEAKER) (test nzgl=943) 1.12 mmol/L 1.12-1.27 PH, BLOOD (BEAKER) (test hmch=2765) 7.36 CBC W/PLT COUNT & AUTO [id number] 06:38:00 Test Item Value Reference Range Comments WHITE BLOOD CELL COUNT (BEAKER) (test yobz=384) 4.9 K/ L 3.5-10.5 RED BLOOD CELL COUNT (BEAKER) (test iisv=593) 2.69 M/ L 4.63-6.08 HEMOGLOBIN (BEAKER) (test iipn=791) 8.3 GM/DL 13.7-17.5 HEMATOCRIT (BEAKER) (test zllj=005) 24.8 % 40.1-51.0 MEAN CORPUSCULAR VOLUME (BEAKER) (test hjgf=984) 92.2 fL 79.0-92.2 MEAN CORPUSCULAR HEMOGLOBIN (BEAKER) (test 30.9 pg 25.7-32.2 ptrq=681) MEAN CORPUSCULAR HEMOGLOBIN CONC (BEAKER) (test 33.5 GM/DL 32.3-36.5 wylz=217) RED CELL DISTRIBUTION WIDTH (BEAKER) (test 14.8 % 11.6-14.4 vnhz=136) PLATELET COUNT (BEAKER) (test nfyt=919) 65 K/CU MM 150-450 MEAN PLATELET VOLUME (BEAKER) (test hqbq=759) 9.1 fL 9.4-12.4 NUCLEATED RED BLOOD CELLS (BEAKER) (test 0 /100 WBC 0-0 cfie=525) NEUTROPHILS RELATIVE PERCENT (BEAKER) (test 67 % jnfs=940) LYMPHOCYTES RELATIVE PERCENT (BEAKER) (test 10 % xiot=330) MONOCYTES RELATIVE PERCENT (BEAKER) (test 17 % ydbm=295) EOSINOPHILS RELATIVE PERCENT (BEAKER) (test 5 % bwqo=960) BASOPHILS RELATIVE PERCENT (BEAKER) (test 0 % lmih=870) NEUTROPHILS ABSOLUTE COUNT (BEAKER) (test 3.32 K/ L 1.78-5.38 xuxn=850) LYMPHOCYTES ABSOLUTE COUNT (BEAKER) (test 0.51 K/ L 1.32-3.57 jftx=704) MONOCYTES ABSOLUTE COUNT (BEAKER) (test pswi=071) 0.83 K/ L 0.30-0.82 EOSINOPHILS ABSOLUTE COUNT (BEAKER) (test 0.23 K/ L 0.04-0.54 ijbm=500) BASOPHILS ABSOLUTE COUNT (BEAKER) (test fdne=457) 0.02 K/ L 0.01-0.08 IMMATURE GRANULOCYTES-RELATIVE PERCENT (BEAKER) 1 % 0-1 (test qery=3261) [id number] 06:35:00 Test Item Value Reference Range Comments PARTIAL THROMBOPLASTIN TIME (BEAKER) (test 52.6 seconds 22.5-36.0 jhtw=371) PROTHROMBIN [id number] 06:34:00 Test Item Value Reference Range Comments PROTIME (BEAKER) (test knbo=938) 21.6 seconds 11.7-14.7 INR (BEAKER) (test qjcn=393) 1.9 <=5.9 RECOMMENDED COUMADIN/WARFARIN INR THERAPY RANGESSTANDARD DOSE: 2.0 - 3.0 Includes: PROPHYLAXIS forvenous thrombosis, systemic embolization; TREATMENT for venous thrombosis and/or pulmonary embolus.HIGH RISK: Target INR is 2.5-3.5 for patients with mechanical heart valves.POCT-GLUCOSE [id number] 22:00:00 Test Item Value Reference Range Comments POC-GLUCOSE METER (BEAKER) 114 mg/dL 70-110 TESTED AT [address] (test hjma=8040) [place] [address] POCT-GLUCOSE [id number] 17:57:00 Test Item Value Reference Range Comments POC-GLUCOSE METER (BEAKER) 139 mg/dL 70-110 TESTED AT [address] (test stwd=6840) [place] [address] POCT-GLUCOSE [id number] 11:57:00 Test Item Value Reference Range Comments POC-GLUCOSE METER (BEAKER) 146 mg/dL 70-110 TESTED AT [address] (test nnff=6024) [place] [address] POCT-GLUCOSE [id number] 09:16:00 Test Item Value Reference Range Comments POC-GLUCOSE METER (BEAKER) 109 mg/dL 70-110 TESTED AT [address] (test nkfy=5048) [place] [address] COMPREHENSIVE METABOLIC [id number] 05:53:00 Test Item Value Reference Range Comments TOTAL PROTEIN (BEAKER) 5.2 gm/dL 6.0-8.3 (test itkv=601) ALBUMIN (BEAKER) (test 3.8 g/dL 3.5-5.0 wktq=9273) ALKALINE PHOSPHATASE 110 U/L 40-150 (BEAKER) (test kvyd=257) BILIRUBIN TOTAL (BEAKER) 4.5 mg/dL 0.2-1.2 (test dhtj=090) SODIUM (BEAKER) (test 124 meq/L 136-145 hlcs=855) POTASSIUM (BEAKER) (test 4.5 meq/L 3.5-5.1 nlsj=063) CHLORIDE (BEAKER) (test 95 meq/L 98-107 plze=962) CO2 (BEAKER) (test 22 meq/L 22-29 lozi=213) BLOOD UREA NITROGEN 30 mg/dL 7-21 (BEAKER) (test lvta=855) CREATININE (BEAKER) (test 1.67 mg/dL 0.57-1.25 qirr=187) GLUCOSE RANDOM (BEAKER) 99 mg/dL 70-105 (test plxj=908) CALCIUM (BEAKER) (test 9.0 mg/dL 8.4-10.2 bjjj=248) AST (SGOT) (BEAKER) (test 16 U/L 5-34 zdjh=648) ALT (SGPT) (BEAKER) (test < U/L 6-55 ymhg=981) EGFR (BEAKER) (test 43 mL/min/1.73 sq m ESTIMATED GFR IS NOT vixp=9755) ACCURATE CREATININE CLEARANCE IN PREDICTING GLOMERULAR FILTRATION RATE. ESTIMATED GFR IS NOT APPLICABLE FOR DIALYSIS PATIENTS. Specimen slightly [id number] 05:50:00 Test Item Value Reference Range Comments PHOSPHORUS (BEAKER) (test aztb=758) 3.7 mg/dL 2.3-4.7 [id number] 05:50:00 Test Item Value Reference Range Comments MAGNESIUM (BEAKER) (test nzkz=903) 2.1 mg/dL 1.6-2.6 CBC W/PLT COUNT & AUTO [id number] 05:28:00 Test Item Value Reference Range Comments WHITE BLOOD CELL COUNT (BEAKER) (test atfh=578) 4.0 K/ L 3.5-10.5 RED BLOOD CELL COUNT (BEAKER) (test wnho=289) 2.80 M/ L 4.63-6.08 HEMOGLOBIN (BEAKER) (test xvjx=486) 8.7 GM/DL 13.7-17.5 HEMATOCRIT (BEAKER) (test smub=635) 25.8 % 40.1-51.0 MEAN CORPUSCULAR VOLUME (BEAKER) (test mobu=668) 92.1 fL 79.0-92.2 MEAN CORPUSCULAR HEMOGLOBIN (BEAKER) (test 31.1 pg 25.7-32.2 xlyk=668) MEAN CORPUSCULAR HEMOGLOBIN CONC (BEAKER) (test 33.7 GM/DL 32.3-36.5 kqbs=032) RED CELL DISTRIBUTION WIDTH (BEAKER) (test 14.7 % 11.6-14.4 lghw=012) PLATELET COUNT (BEAKER) (test akfo=072) 42 K/CU MM 150-450 MEAN PLATELET VOLUME (BEAKER) (test kkbd=170) 9.8 fL 9.4-12.4 NUCLEATED RED BLOOD CELLS (BEAKER) (test 0 /100 WBC 0-0 vcoz=841) NEUTROPHILS RELATIVE PERCENT (BEAKER) (test 59 % fxvt=841) LYMPHOCYTES RELATIVE PERCENT (BEAKER) (test 15 % oozu=758) MONOCYTES RELATIVE PERCENT (BEAKER) (test 20 % khsx=061) EOSINOPHILS RELATIVE PERCENT (BEAKER) (test 5 % aont=505) BASOPHILS RELATIVE PERCENT (BEAKER) (test 1 % sbxv=808) NEUTROPHILS ABSOLUTE COUNT (BEAKER) (test 2.37 K/ L 1.78-5.38 njbg=035) LYMPHOCYTES ABSOLUTE COUNT (BEAKER) (test 0.58 K/ L 1.32-3.57 nyef=930) MONOCYTES ABSOLUTE COUNT (BEAKER) (test guur=608) 0.78 K/ L 0.30-0.82 EOSINOPHILS ABSOLUTE COUNT (BEAKER) (test 0.21 K/ L 0.04-0.54 wgtc=802) BASOPHILS ABSOLUTE COUNT (BEAKER) (test qdbn=671) 0.02 K/ L 0.01-0.08 IMMATURE GRANULOCYTES-RELATIVE PERCENT (BEAKER) 1 % 0-1 (test gueg=2370) PROTHROMBIN [id number] 05:26:00 Test Item Value Reference Range Comments PROTIME (BEAKER) (test xbog=181) 23.3 seconds 11.7-14.7 INR (BEAKER) (test xhag=323) 2.1 <=5.9 RECOMMENDED COUMADIN/WARFARIN INR THERAPY RANGESSTANDARD DOSE: 2.0 - 3.0 Includes: PROPHYLAXIS forvenous thrombosis, systemic embolization; TREATMENT for venous thrombosis and/or pulmonary embolus.HIGH RISK: Target INR is 2.5-3.5 for patients with mechanical heart valves.CALCIUM, [id number] 05:21:00 Test Item Value Reference Range Comments CALCIUM IONIZED (BEAKER) (test nyfl=089) 1.11 mmol/L 1.12-1.27 PH, BLOOD (BEAKER) (test kknv=6257) 7.40 POCT-GLUCOSE [id number] 21:47:00 Test Item Value Reference Range Comments POC-GLUCOSE METER (BEAKER) 129 mg/dL 70-110 TESTED AT [address] (test tsva=7334) [facility] [address] RAD, CHEST, 1 VIEW, NON [id number] 17:18:00Reason for exam:->sobFINAL REPORT Comparison: 08/26/2018 TECHNIQUE: Single view of the chest FINDINGS: Lung volumes are low. Bibasilar densities may represent atelectasis. Otherwise lungs are clear. Cardiac silhouette is within normal limits. Soft tissues and bones are unremarkable. Signed: Rick Guerra MDReport Verified Date/Time: 09/02/2018 17:18:49 Reading Location: [facility] Mammo Reading Room CBC W/ PLT COUNT & AUTO [id number] 17:16:00 Test Item Value Reference Range Comments WHITE BLOOD CELL COUNT (BEAKER) (test rqfs=111) 3.8 K/ L 3.5-10.5 RED BLOOD CELL COUNT (BEAKER) (test iwyi=920) 2.37 M/ L 4.63-6.08 HEMOGLOBIN (BEAKER) (test abmn=856) 7.4 GM/DL 13.7-17.5 HEMATOCRIT (BEAKER) (test kwzt=546) 21.8 % 40.1-51.0 MEAN CORPUSCULAR VOLUME (BEAKER) (test pdrf=858) 92.0 fL 79.0-92.2 MEAN CORPUSCULAR HEMOGLOBIN (BEAKER) (test 31.2 pg 25.7-32.2 mkrf=204) MEAN CORPUSCULAR HEMOGLOBIN CONC (BEAKER) (test 33.9 GM/DL 32.3-36.5 hhsx=246) RED CELL DISTRIBUTION WIDTH (BEAKER) (test 14.9 % 11.6-14.4 ornj=548) PLATELET COUNT (BEAKER) (test uzhy=038) 41 K/CU MM 150-450 MEAN PLATELET VOLUME (BEAKER) (test spzr=140) 8.8 fL 9.4-12.4 NUCLEATED RED BLOOD CELLS (BEAKER) (test 0 /100 WBC 0-0 tacm=928) NEUTROPHILS RELATIVE PERCENT (BEAKER) (test 62 % xlnd=892) LYMPHOCYTES RELATIVE PERCENT (BEAKER) (test 14 % osko=481) MONOCYTES RELATIVE PERCENT (BEAKER) (test 18 % gdtb=686) EOSINOPHILS RELATIVE PERCENT (BEAKER) (test 4 % xgdr=314) BASOPHILS RELATIVE PERCENT (BEAKER) (test 0 % ygue=436) NEUTROPHILS ABSOLUTE COUNT (BEAKER) (test 2.39 K/ L 1.78-5.38 jwnj=871) LYMPHOCYTES ABSOLUTE COUNT (BEAKER) (test 0.55 K/ L 1.32-3.57 eisq=377) MONOCYTES ABSOLUTE COUNT (BEAKER) (test tjuh=610) 0.69 K/ L 0.30-0.82 EOSINOPHILS ABSOLUTE COUNT (BEAKER) (test 0.17 K/ L 0.04-0.54 yysn=458) BASOPHILS ABSOLUTE COUNT (BEAKER) (test gtos=010) 0.01 K/ L 0.01-0.08 IMMATURE GRANULOCYTES-RELATIVE PERCENT (BEAKER) 1 % 0-1 (test ahad=8385) POCT-BLOOD GASES, [id number] 16:58:00 Test Item Value Reference Range Comments TEMP, CELSIUS-POC (BEAKER) 37.0 (test pvuh=2667) FIO2-POC (BEAKER) (test TESTED AT [facility] [address] [facility] aojz=1218) [facility] [address] PH, ARTERIAL-POC (BEAKER) 7.412 7.350-7.450 (test sslz=1670) PCO2, ARTERIAL-POC (BEAKER) 35.5 mm Hg 35.0-45.0 (test qcwz=5156) PO2, ARTERIAL-POC (BEAKER) 69.0 mm Hg 80.0-90.0 (test dapx=6150) SO2, ARTERIAL-POC (BEAKER) 94.0 % 96.0-97.0 (test ohps=0733) HCO3, ARTERIAL-POC (BEAKER) 22.6 meq/L 21.0-29.0 (test gyph=1087) BASE EXCESS, ARTERIAL-POC -2.0 meq/L -2.0-3.0 (BEAKER) (test tjyw=3551) [id number] 16:58:00 Test Item Value Reference Range Comments POC-SODIUM (BEAKER) (test 125 meq/L 135-148 TESTED AT [address] mvpy=6005) [place] [address] [id number] 16:58:00 Test Item Value Reference Range Comments POC-POTASSIUM (BEAKER) (test 4.2 meq/L 3.6-5.5 TESTED AT [address] qbgg=7538) [place] [address] [id number] 16:58:00 Test Item Value Reference Range Comments POC-GLUCOSE (BEAKER) (test 128 mg/dL 70-110 TESTED AT [address] mxtk=8558) [place] [address] POCT-CALCIUM [id number] 16:58:00 Test Item Value Reference Range Comments POC-CALCIUM IONIZED (BEAKER) 1.24 mmol/L 1.12-1.27 TESTED AT [address] (test oroa=7946) [place] [address] [id number] 16:58:00 Test Item Value Reference Range Comments POC-HEMATOCRIT (BEAKER) (test 21 % 40-50 TESTED AT [address] vksl=0518) [place] [address] [id number] 16:58:00 Test Item Value Reference Range Comments POC-HEMOGLOBIN (BEAKER) 7.1 g/dL 13.0-16.8 TESTED AT [address] (test ivcy=4553) [facility] [id number] AT [address] [address] POCT-LACTIC ACID, [id number] 16:58:00 Test Item Value Reference Range Comments POC-LACTIC ACID, ARTERIAL 1.0 mmol/L 0.4-1.3 TESTED AT [address] (BEAKER) (test ixdu=9792) [facility] [address] POCT-GLUCOSE [id number] 11:43:00 Test Item Value Reference Range Comments POC-GLUCOSE METER (BEAKER) 169 mg/dL 70-110 TESTED AT [address] (test wodx=9709) [facility] [address] POCT-GLUCOSE [id number] 08:23:00 Test Item Value Reference Range Comments POC-GLUCOSE METER (BEAKER) 128 mg/dL 70-110 TESTED AT [address] (test eqdh=1210) [place] [address] [id number] 05:16:00 Test Item Value Reference Range Comments PHOSPHORUS (BEAKER) (test xtiu=034) 3.8 mg/dL 2.3-4.7 [id number] 05:16:00 Test Item Value Reference Range Comments MAGNESIUM (BEAKER) (test kwsj=927) 2.0 mg/dL 1.6-2.6 COMPREHENSIVE METABOLIC [id number] 05:16:00 Test Item Value Reference Range Comments TOTAL PROTEIN (BEAKER) 5.0 gm/dL 6.0-8.3 (test kixf=886) ALBUMIN (BEAKER) (test 3.5 g/dL 3.5-5.0 gyzg=6839) ALKALINE PHOSPHATASE 124 U/L 40-150 (BEAKER) (test liwr=569) BILIRUBIN TOTAL (BEAKER) 2.2 mg/dL 0.2-1.2 (test hysq=209) SODIUM (BEAKER) (test 125 meq/L 136-145 zmvm=084) POTASSIUM (BEAKER) (test 4.4 meq/L 3.5-5.1 ypif=687) CHLORIDE (BEAKER) (test 96 meq/L 98-107 ymcc=047) CO2 (BEAKER) (test 23 meq/L 22-29 axrk=661) BLOOD UREA NITROGEN 27 mg/dL 7-21 (BEAKER) (test dsse=288) CREATININE (BEAKER) (test 1.74 mg/dL 0.57-1.25 vxvq=480) GLUCOSE RANDOM (BEAKER) 112 mg/dL 70-105 (test jcri=233) CALCIUM (BEAKER) (test 8.8 mg/dL 8.4-10.2 lnfv=727) AST (SGOT) (BEAKER) (test 17 U/L 5-34 lwzl=292) ALT (SGPT) (BEAKER) (test 7 U/L 6-55 jhrs=957) EGFR (BEAKER) (test 41 mL/min/1.73 sq m ESTIMATED GFR IS NOT bcce=2252) ACCURATE CREATININE CLEARANCE IN PREDICTING GLOMERULAR FILTRATION RATE. ESTIMATED GFR IS NOT APPLICABLE FOR DIALYSIS PATIENTS. CALCIUM, [id number] 05:13:00 Test Item Value Reference Range Comments CALCIUM IONIZED (BEAKER) (test pilh=287) 1.10 mmol/L 1.12-1.27 PH, BLOOD (BEAKER) (test czem=3550) 7.44 CBC W/PLT COUNT & AUTO [id number] 05:02:00 Test Item Value Reference Range Comments WHITE BLOOD CELL COUNT (BEAKER) (test qkqx=490) 3.2 K/ L 3.5-10.5 RED BLOOD CELL COUNT (BEAKER) (test lkcr=505) 2.23 M/ L 4.63-6.08 HEMOGLOBIN (BEAKER) (test sltj=400) 6.9 GM/DL 13.7-17.5 HEMATOCRIT (BEAKER) (test dulp=037) 20.8 % 40.1-51.0 MEAN CORPUSCULAR VOLUME (BEAKER) (test fqfr=350) 93.3 fL 79.0-92.2 MEAN CORPUSCULAR HEMOGLOBIN (BEAKER) (test 30.9 pg 25.7-32.2 etyi=506) MEAN CORPUSCULAR HEMOGLOBIN CONC (BEAKER) (test 33.2 GM/DL 32.3-36.5 qnnp=351) RED CELL DISTRIBUTION WIDTH (BEAKER) (test 14.6 % 11.6-14.4 heuf=954) PLATELET COUNT (BEAKER) (test ktzu=496) 43 K/CU MM 150-450 MEAN PLATELET VOLUME (BEAKER) (test axan=575) 9.3 fL 9.4-12.4 NUCLEATED RED BLOOD CELLS (BEAKER) (test 0 /100 WBC 0-0 vjbz=002) NEUTROPHILS RELATIVE PERCENT (BEAKER) (test 58 % qgsg=066) LYMPHOCYTES RELATIVE PERCENT (BEAKER) (test 17 % rzgt=377) MONOCYTES RELATIVE PERCENT (BEAKER) (test 18 % cvya=642) EOSINOPHILS RELATIVE PERCENT (BEAKER) (test 5 % xbnj=263) BASOPHILS RELATIVE PERCENT (BEAKER) (test 1 % xucv=941) NEUTROPHILS ABSOLUTE COUNT (BEAKER) (test 1.84 K/ L 1.78-5.38 gsge=301) LYMPHOCYTES ABSOLUTE COUNT (BEAKER) (test 0.54 K/ L 1.32-3.57 iedr=200) MONOCYTES ABSOLUTE COUNT (BEAKER) (test nnhv=415) 0.56 K/ L 0.30-0.82 EOSINOPHILS ABSOLUTE COUNT (BEAKER) (test 0.15 K/ L 0.04-0.54 uppm=489) BASOPHILS ABSOLUTE COUNT (BEAKER) (test fozd=456) 0.02 K/ L 0.01-0.08 IMMATURE GRANULOCYTES-RELATIVE PERCENT (BEAKER) 1 % 0-1 (test cdrt=6865) PROTHROMBIN [id number] 05:00:00 Test Item Value Reference Range Comments PROTIME (BEAKER) (test yblz=440) 22.7 seconds 11.7-14.7 INR (BEAKER) (test evxn=242) 2.0 <=5.9 RECOMMENDED COUMADIN/WARFARIN INR THERAPY RANGESSTANDARD DOSE: 2.0 - 3.0 Includes: PROPHYLAXIS forvenous thrombosis, systemic embolization; TREATMENT for venous thrombosis and/or pulmonary embolus.HIGH RISK: Target INR is 2.5-3.5 for patients with mechanical heart valves.POCT-GLUCOSE [id number] 22:18:00 Test Item Value Reference Range Comments POC-GLUCOSE METER (BEAKER) 194 mg/dL 70-110 TESTED AT [address] (test dkfa=8288) [facility] [address] POCT-GLUCOSE [id number] 17:33:00 Test Item Value Reference Range Comments POC-GLUCOSE METER (BEAKER) 160 mg/dL 70-110 TESTED AT [address] (test towo=3500) [facility] [address] POCT-GLUCOSE [id number] 11:56:00 Test Item Value Reference Range Comments POC-GLUCOSE METER (BEAKER) 151 mg/dL 70-110 TESTED AT [facility] [address] [facility] (test itaf=8808) [facility] [address] URINALYSIS W/ [id number] 09:52:00 Test Item Value Reference Range Comments COLOR (BEAKER) (test ziof=348) Yellow CLARITY (BEAKER) (test xncw=059) Clear SPECIFIC GRAVITY UA (BEAKER) (test 1.014 1.001-1.035 kbkc=457) PH UA (BEAKER) (test cidu=405) 5.5 5.0-8.0 PROTEIN UA (BEAKER) (test ftkr=235) Negative Negative GLUCOSE UA (BEAKER) (test xwfy=131) Negative Negative KETONES UA (BEAKER) (test npto=163) Negative Negative BILIRUBIN UA (BEAKER) (test goow=851) Negative Negative BLOOD UA (BEAKER) (test slun=207) Negative Negative NITRITE UA (BEAKER) (test vitu=163) Negative Negative LEUKOCYTE ESTERASE UA (BEAKER) (test Negative Negative dtqx=322) UROBILINOGEN UA (BEAKER) (test xxgi=707) 0.2 mg/dL 0.2-1.0 RBC UA (BEAKER) (test didp=349) 1 /HPF WBC UA (BEAKER) (test vzko=377) 4 /HPF BACTERIA (BEAKER) (test qczv=854) Rare MUCUS (BEAKER) (test atkm=4153) Rare HYALINE CASTS (BEAKER) (test hrzr=254) 19 /LPF YEAST (BEAKER) (test hblc=6708) Rare SOURCE(BEAKER) (test irne=5035) Urine, Clean Catch SODIUM, RANDOM [id number] 09:09:00 Test Item Value Reference Range Comments SODIUM URINE (BEAKER) (test cnjx=877) < meq/L Reference Range: No NormalsCREATININE, RANDOM [id number] 09:04:00 Test Item Value Reference Range Comments CREATININE URINE (BEAKER) (test eirq=091) 149.6 mg/dL Reference Range: No NormalsPOCT-GLUCOSE [id number] 08:12:00 Test Item Value Reference Range Comments POC-GLUCOSE METER (BEAKER) 106 mg/dL 70-110 TESTED AT [facility] [address] (test twes=7383) [place] [address] CBC W/PLT COUNT & AUTO [id number] 06:56:00 Test Item Value Reference Range Comments WHITE BLOOD CELL COUNT (BEAKER) (test aipf=394) 4.5 K/ L 3.5-10.5 RED BLOOD CELL COUNT (BEAKER) (test ehcv=708) 2.22 M/ L 4.63-6.08 HEMOGLOBIN (BEAKER) (test aftc=759) 7.0 GM/DL 13.7-17.5 HEMATOCRIT (BEAKER) (test uaqy=923) 20.6 % 40.1-51.0 MEAN CORPUSCULAR VOLUME (BEAKER) (test rtzr=201) 92.8 fL 79.0-92.2 MEAN CORPUSCULAR HEMOGLOBIN (BEAKER) (test 31.5 pg 25.7-32.2 dryz=264) MEAN CORPUSCULAR HEMOGLOBIN CONC (BEAKER) (test 34.0 GM/DL 32.3-36.5 egvm=946) RED CELL DISTRIBUTION WIDTH (BEAKER) (test 14.7 % 11.6-14.4 akub=363) PLATELET COUNT (BEAKER) (test ajlf=404) 44 K/CU MM 150-450 MEAN PLATELET VOLUME (BEAKER) (test bkpk=998) 9.0 fL 9.4-12.4 NUCLEATED RED BLOOD CELLS (BEAKER) (test 0 /100 WBC 0-0 lhja=289) NEUTROPHILS RELATIVE PERCENT (BEAKER) (test 69 % elsn=851) LYMPHOCYTES RELATIVE PERCENT (BEAKER) (test 12 % gpsz=299) MONOCYTES RELATIVE PERCENT (BEAKER) (test 14 % ijqe=553) EOSINOPHILS RELATIVE PERCENT (BEAKER) (test 4 % wlph=386) BASOPHILS RELATIVE PERCENT (BEAKER) (test 0 % ogmr=119) NEUTROPHILS ABSOLUTE COUNT (BEAKER) (test 3.12 K/ L 1.78-5.38 jtro=127) LYMPHOCYTES ABSOLUTE COUNT (BEAKER) (test 0.55 K/ L 1.32-3.57 ifkg=314) MONOCYTES ABSOLUTE COUNT (BEAKER) (test zwnl=498) 0.62 K/ L 0.30-0.82 EOSINOPHILS ABSOLUTE COUNT (BEAKER) (test 0.18 K/ L 0.04-0.54 ieks=536) BASOPHILS ABSOLUTE COUNT (BEAKER) (test bapj=061) 0.00 K/ L 0.01-0.08 IMMATURE GRANULOCYTES-RELATIVE PERCENT (BEAKER) 1 % 0-1 (test owlr=2246) [id number] 06:41:00 Test Item Value Reference Range Comments PHOSPHORUS (BEAKER) (test jdbh=739) 2.7 mg/dL 2.3-4.7 [id number] 06:41:00 Test Item Value Reference Range Comments MAGNESIUM (BEAKER) (test ucuw=159) 2.0 mg/dL 1.6-2.6 COMPREHENSIVE METABOLIC [id number] 06:41:00 Test Item Value Reference Range Comments TOTAL PROTEIN (BEAKER) 4.9 gm/dL 6.0-8.3 (test iala=776) ALBUMIN (BEAKER) (test 3.1 g/dL 3.5-5.0 afxr=3820) ALKALINE PHOSPHATASE 148 U/L 40-150 (BEAKER) (test yrcb=538) BILIRUBIN TOTAL (BEAKER) 1.9 mg/dL 0.2-1.2 (test wefg=375) SODIUM (BEAKER) (test 123 meq/L 136-145 trpb=165) POTASSIUM (BEAKER) (test 3.9 meq/L 3.5-5.1 ozuy=469) CHLORIDE (BEAKER) (test 94 meq/L 98-107 iprz=410) CO2 (BEAKER) (test 22 meq/L 22-29 rhmo=154) BLOOD UREA NITROGEN 24 mg/dL 7-21 (BEAKER) (test twrf=900) CREATININE (BEAKER) (test 1.55 mg/dL 0.57-1.25 wnxn=388) GLUCOSE RANDOM (BEAKER) 95 mg/dL 70-105 (test pbiy=274) CALCIUM (BEAKER) (test 8.5 mg/dL 8.4-10.2 gvaa=939) AST (SGOT) (BEAKER) (test 18 U/L 5-34 adsu=278) ALT (SGPT) (BEAKER) (test 10 U/L 6-55 puew=960) EGFR (BEAKER) (test 47 mL/min/1.73 sq m ESTIMATED GFR IS NOT nmdm=0104) ACCURATE CREATININE CLEARANCE IN PREDICTING GLOMERULAR FILTRATION RATE. ESTIMATED GFR IS NOT APPLICABLE FOR DIALYSIS PATIENTS. BILIRUBIN, [id number] 06:41:00 Test Item Value Reference Range Comments BILIRUBIN DIRECT (BEAKER) (test jcen=661) 1.3 mg/dL 0.1-0.5 PROTHROMBIN [id number] 06:26:00 Test Item Value Reference Range Comments PROTIME (BEAKER) (test mhnb=205) 23.3 seconds 11.7-14.7 INR (BEAKER) (test jncm=529) 2.1 <=5.9 RECOMMENDED COUMADIN/WARFARIN INR THERAPY RANGESSTANDARD DOSE: 2.0 - 3.0 Includes: PROPHYLAXIS forvenous thrombosis, systemic embolization; TREATMENT for venous thrombosis and/or pulmonary embolus.HIGH RISK: Target INR is 2.5-3.5 for patients with mechanical heart valves.POCT-GLUCOSE [id number] 22:17:00 Test Item Value Reference Range Comments POC-GLUCOSE METER (BEAKER) 136 mg/dL 70-110 TESTED AT [address] (test rsdv=2066) [place] [address] POCT-GLUCOSE [id number] 18:08:00 Test Item Value Reference Range Comments POC-GLUCOSE METER (BEAKER) 126 mg/dL 70-110 TESTED AT [address] (test mkjo=6844) [place] [address] U/S, [id number] 17:47:00Reason for exam:->ascitesFINAL REPORT Indication: Ascites. Technique: Ultrasound guided paracentesis. Findings:Preliminary ultrasound confirms ascites. A safe window was identified in the left lower quadrant. The procedure was explained to the patient and informed consent was signed. The skin was markedand prepped in standard sterile fashion. Lidocaine was used for local anesthesia. A 5 [place] needle catheter system was advanced into the peritoneal space. 5500 cc slightly cloudy yellow fluid was taken off. Patient tolerated the procedure well. Impression: Ultrasound guided paracentesis. Signed: Aristeo Xiong [facility]AD[facility]ort Verified Date/Time: 08/31/2018 17:47:54 Reading Location: [address] Ultrasound Reading Room POCT-GLUCOSE [id number] 11:52:00 Test Item Value Reference Range Comments POC-GLUCOSE METER (BEAKER) 151 mg/dL 70-110 TESTED AT [place] [id number] [facility] (test lflb=5540) [facility] [address] POCT-GLUCOSE [id number] 08:19:00 Test Item Value Reference Range Comments POC-GLUCOSE METER (BEAKER) 129 mg/dL 70-110 TESTED AT [address] (test oycm=0327) [facility] [address] [id number] 05:12:00 Test Item Value Reference Range Comments PHOSPHORUS (BEAKER) (test eeyv=689) 2.9 mg/dL 2.3-4.7 [id number] 05:12:00 Test Item Value Reference Range Comments MAGNESIUM (BEAKER) (test uatc=953) 2.0 mg/dL 1.6-2.6 COMPREHENSIVE METABOLIC [id number] 05:12:00 Test Item Value Reference Range Comments TOTAL PROTEIN (BEAKER) 5.4 gm/dL 6.0-8.3 (test ppet=632) ALBUMIN (BEAKER) (test 3.2 g/dL 3.5-5.0 wpwk=6506) ALKALINE PHOSPHATASE 159 U/L 40-150 (BEAKER) (test lejm=461) BILIRUBIN TOTAL (BEAKER) 1.8 mg/dL 0.2-1.2 (test vofh=570) SODIUM (BEAKER) (test 125 meq/L 136-145 gnam=420) POTASSIUM (BEAKER) (test 4.3 meq/L 3.5-5.1 wwpe=943) CHLORIDE (BEAKER) (test 97 meq/L 98-107 tcud=240) CO2 (BEAKER) (test 22 meq/L 22-29 iqys=388) BLOOD UREA NITROGEN 21 mg/dL 7-21 (BEAKER) (test yljs=112) CREATININE (BEAKER) (test 1.34 mg/dL 0.57-1.25 mbuw=328) GLUCOSE RANDOM (BEAKER) 113 mg/dL 70-105 (test aiem=462) CALCIUM (BEAKER) (test 8.8 mg/dL 8.4-10.2 zdri=990) AST (SGOT) (BEAKER) (test 22 U/L 5-34 vckb=832) ALT (SGPT) (BEAKER) (test 11 U/L 6-55 pidt=086) EGFR (BEAKER) (test 56 mL/min/1.73 sq m ESTIMATED GFR IS NOT kflw=5366) ACCURATE CREATININE CLEARANCE IN PREDICTING GLOMERULAR FILTRATION RATE. ESTIMATED GFR IS NOT APPLICABLE FOR DIALYSIS PATIENTS. BILIRUBIN, [id number] 05:12:00 Test Item Value Reference Range Comments BILIRUBIN DIRECT (BEAKER) (test lwio=590) 1.2 mg/dL 0.1-0.5 PROTHROMBIN [id number] 04:48:00 Test Item Value Reference Range Comments PROTIME (BEAKER) (test fkqi=449) 22.3 seconds 11.7-14.7 INR (BEAKER) (test botn=486) 2.0 <=5.9 RECOMMENDED COUMADIN/WARFARIN INR THERAPY RANGESSTANDARD DOSE: 2.0 - 3.0 Includes: PROPHYLAXIS forvenous thrombosis, systemic embolization; TREATMENT for venous thrombosis and/or pulmonary embolus.HIGH RISK: Target INR is 2.5-3.5 for patients with mechanical heart valves.CBC W/PLT COUNT & AUTO [id number] 04:33:00 Test Item Value Reference Range Comments WHITE BLOOD CELL COUNT (BEAKER) (test oylz=646) 5.5 K/ L 3.5-10.5 RED BLOOD CELL COUNT (BEAKER) (test wylm=607) 2.58 M/ L 4.63-6.08 HEMOGLOBIN (BEAKER) (test plvh=192) 7.9 GM/DL 13.7-17.5 HEMATOCRIT (BEAKER) (test awfr=533) 24.3 % 40.1-51.0 MEAN CORPUSCULAR VOLUME (BEAKER) (test mcko=717) 94.2 fL 79.0-92.2 MEAN CORPUSCULAR HEMOGLOBIN (BEAKER) (test 30.6 pg 25.7-32.2 ezlw=698) MEAN CORPUSCULAR HEMOGLOBIN CONC (BEAKER) (test 32.5 GM/DL 32.3-36.5 sllg=490) RED CELL DISTRIBUTION WIDTH (BEAKER) (test 15.0 % 11.6-14.4 nfvu=897) PLATELET COUNT (BEAKER) (test clsh=909) 57 K/CU MM 150-450 MEAN PLATELET VOLUME (BEAKER) (test oulp=313) 9.2 fL 9.4-12.4 NUCLEATED RED BLOOD CELLS (BEAKER) (test 0 /100 WBC 0-0 icdw=142) NEUTROPHILS RELATIVE PERCENT (BEAKER) (test 70 % oocw=558) LYMPHOCYTES RELATIVE PERCENT (BEAKER) (test 12 % aiyd=330) MONOCYTES RELATIVE PERCENT (BEAKER) (test 14 % onwl=921) EOSINOPHILS RELATIVE PERCENT (BEAKER) (test 4 % vepc=602) BASOPHILS RELATIVE PERCENT (BEAKER) (test 0 % nggw=274) NEUTROPHILS ABSOLUTE COUNT (BEAKER) (test 3.85 K/ L 1.78-5.38 soxb=863) LYMPHOCYTES ABSOLUTE COUNT (BEAKER) (test 0.67 K/ L 1.32-3.57 qspc=399) MONOCYTES ABSOLUTE COUNT (BEAKER) (test afme=299) 0.75 K/ L 0.30-0.82 EOSINOPHILS ABSOLUTE COUNT (BEAKER) (test 0.22 K/ L 0.04-0.54 bmbc=740) BASOPHILS ABSOLUTE COUNT (BEAKER) (test jrpq=009) 0.01 K/ L 0.01-0.08 IMMATURE GRANULOCYTES-RELATIVE PERCENT (BEAKER) 1 % 0-1 (test qnqr=3487) BLOOD [id number] 23:01:00 Test Item Value Reference Range Comments CULTURE (BEAKER) (test rjkg=1172) No growth in 5 days POCT-GLUCOSE [id number] 22:15:00 Test Item Value Reference Range Comments POC-GLUCOSE METER (BEAKER) 133 mg/dL 70-110 TESTED AT [address] (test ifpw=4729) [facility] [address] POCT-GLUCOSE [id number] 17:42:00 Test Item Value Reference Range Comments POC-GLUCOSE METER (BEAKER) 139 mg/dL 70-110 TESTED AT [address] (test ircu=0878) [place] [id number] POCT-GLUCOSE [id number] 12:02:00 Test Item Value Reference Range Comments POC-GLUCOSE METER (BEAKER) 152 mg/dL 70-110 TESTED AT [address] (test fjjq=8826) [facility] [address] POCT-GLUCOSE [id number] 09:04:00 Test Item Value Reference Range Comments POC-GLUCOSE METER (BEAKER) 130 mg/dL 70-110 TESTED AT [facility] [address] (test nnen=9971) [place] [address] CALCIUM, [id number] 07:27:00 Test Item Value Reference Range Comments CALCIUM IONIZED (BEAKER) (test ijqm=555) 1.10 mmol/L 1.12-1.27 PH, BLOOD (BEAKER) (test fzqm=8040) 7.42 [id number] 06:46:00 Test Item Value Reference Range Comments PHOSPHORUS (BEAKER) (test qltc=146) 3.0 mg/dL 2.3-4.7 [id number] 06:46:00 Test Item Value Reference Range Comments MAGNESIUM (BEAKER) (test omul=371) 2.0 mg/dL 1.6-2.6 COMPREHENSIVE METABOLIC [id number] 06:46:00 Test Item Value Reference Range Comments TOTAL PROTEIN (BEAKER) 4.9 gm/dL 6.0-8.3 (test xnuf=148) ALBUMIN (BEAKER) (test 3.0 g/dL 3.5-5.0 fwxj=8572) ALKALINE PHOSPHATASE 145 U/L 40-150 (BEAKER) (test ydbx=329) BILIRUBIN TOTAL (BEAKER) 1.9 mg/dL 0.2-1.2 (test ssra=772) SODIUM (BEAKER) (test 127 meq/L 136-145 yaob=992) POTASSIUM (BEAKER) (test 3.7 meq/L 3.5-5.1 rwwa=785) CHLORIDE (BEAKER) (test 99 meq/L 98-107 ahku=175) CO2 (BEAKER) (test 21 meq/L 22-29 enpi=060) BLOOD UREA NITROGEN 20 mg/dL 7-21 (BEAKER) (test jvgf=229) CREATININE (BEAKER) (test 1.21 mg/dL 0.57-1.25 yyir=117) GLUCOSE RANDOM (BEAKER) 108 mg/dL 70-105 (test pdpc=109) CALCIUM (BEAKER) (test 8.9 mg/dL 8.4-10.2 zqpr=212) AST (SGOT) (BEAKER) (test 22 U/L 5-34 tukp=029) ALT (SGPT) (BEAKER) (test 9 U/L 6-55 vcrw=142) EGFR (BEAKER) (test 63 mL/min/1.73 sq m ESTIMATED GFR IS NOT xjgo=6335) ACCURATE CREATININE CLEARANCE IN PREDICTING GLOMERULAR FILTRATION RATE. ESTIMATED GFR IS NOT APPLICABLE FOR DIALYSIS PATIENTS. BASIC METABOLIC [id number] 06:46:00 Test Item Value Reference Range Comments SODIUM (BEAKER) (test 127 meq/L 136-145 zfgi=389) POTASSIUM (BEAKER) (test 3.7 meq/L 3.5-5.1 crox=666) CHLORIDE (BEAKER) (test 99 meq/L 98-107 rwaw=334) CO2 (BEAKER) (test 21 meq/L 22-29 nolm=070) BLOOD UREA NITROGEN 20 mg/dL 7-21 (BEAKER) (test cfty=095) CREATININE (BEAKER) (test 1.21 mg/dL 0.57-1.25 bdrl=239) GLUCOSE RANDOM (BEAKER) 108 mg/dL 70-105 (test gkib=068) CALCIUM (BEAKER) (test 8.9 mg/dL 8.4-10.2 koqk=595) EGFR (BEAKER) (test 63 mL/min/1.73 sq m ESTIMATED GFR IS NOT assx=7814) ACCURATE CREATININE CLEARANCE IN PREDICTING GLOMERULAR FILTRATION RATE. ESTIMATED GFR IS NOT APPLICABLE FOR DIALYSIS PATIENTS. BILIRUBIN, [id number] 06:46:00 Test Item Value Reference Range Comments BILIRUBIN DIRECT (BEAKER) (test ocus=043) 1.2 mg/dL 0.1-0.5 CBC W/PLT COUNT & AUTO [id number] 06:30:00 Test Item Value Reference Range Comments WHITE BLOOD CELL COUNT (BEAKER) (test qqme=128) 3.7 K/ L 3.5-10.5 RED BLOOD CELL COUNT (BEAKER) (test idra=934) 2.35 M/ L 4.63-6.08 HEMOGLOBIN (BEAKER) (test ljpk=791) 7.4 GM/DL 13.7-17.5 HEMATOCRIT (BEAKER) (test rogh=535) 22.1 % 40.1-51.0 MEAN CORPUSCULAR VOLUME (BEAKER) (test btst=523) 94.0 fL 79.0-92.2 MEAN CORPUSCULAR HEMOGLOBIN (BEAKER) (test 31.5 pg 25.7-32.2 ashk=281) MEAN CORPUSCULAR HEMOGLOBIN CONC (BEAKER) (test 33.5 GM/DL 32.3-36.5 xxea=651) RED CELL DISTRIBUTION WIDTH (BEAKER) (test 14.8 % 11.6-14.4 gkmh=053) PLATELET COUNT (BEAKER) (test daaq=883) 45 K/CU MM 150-450 MEAN PLATELET VOLUME (BEAKER) (test phtk=260) 8.8 fL 9.4-12.4 NUCLEATED RED BLOOD CELLS (BEAKER) (test 0 /100 WBC 0-0 sqrb=193) NEUTROPHILS RELATIVE PERCENT (BEAKER) (test 61 % ddnx=405) LYMPHOCYTES RELATIVE PERCENT (BEAKER) (test 14 % bali=715) MONOCYTES RELATIVE PERCENT (BEAKER) (test 18 % zhwu=238) EOSINOPHILS RELATIVE PERCENT (BEAKER) (test 6 % jeao=383) BASOPHILS RELATIVE PERCENT (BEAKER) (test 0 % dlqj=872) NEUTROPHILS ABSOLUTE COUNT (BEAKER) (test 2.25 K/ L 1.78-5.38 gzog=469) LYMPHOCYTES ABSOLUTE COUNT (BEAKER) (test 0.53 K/ L 1.32-3.57 lssc=403) MONOCYTES ABSOLUTE COUNT (BEAKER) (test nzqy=932) 0.67 K/ L 0.30-0.82 EOSINOPHILS ABSOLUTE COUNT (BEAKER) (test 0.23 K/ L 0.04-0.54 ubcz=560) BASOPHILS ABSOLUTE COUNT (BEAKER) (test bpgy=041) 0.01 K/ L 0.01-0.08 IMMATURE GRANULOCYTES-RELATIVE PERCENT (BEAKER) 1 % 0-1 (test qtac=4648) PROTHROMBIN [id number] 06:07:00 Test Item Value Reference Range Comments PROTIME (BEAKER) (test dlkd=224) 21.4 seconds 11.7-14.7 INR (BEAKER) (test adip=739) 1.9 <=5.9 RECOMMENDED COUMADIN/WARFARIN INR THERAPY RANGESSTANDARD DOSE: 2.0 - 3.0 Includes: PROPHYLAXIS forvenous thrombosis, systemic embolization; TREATMENT for venous thrombosis and/or pulmonary embolus.HIGH RISK: Target INR is 2.5-3.5 for patients with mechanical heart valves.POCT-GLUCOSE [id number] 23:37:00 Test Item Value Reference Range Comments POC-GLUCOSE METER (BEAKER) 154 mg/dL 70-110 TESTED AT [address] (test cepx=6450) [place] [address] BASIC METABOLIC [id number] 20:17:00 Test Item Value Reference Range Comments SODIUM (BEAKER) (test 125 meq/L 136-145 tyky=173) POTASSIUM (BEAKER) (test 4.0 meq/L 3.5-5.1 dcxe=942) CHLORIDE (BEAKER) (test 94 meq/L 98-107 prej=821) CO2 (BEAKER) (test 25 meq/L 22-29 yvsk=000) BLOOD UREA NITROGEN 20 mg/dL 7-21 (BEAKER) (test emea=594) CREATININE (BEAKER) (test 1.34 mg/dL 0.57-1.25 ympd=054) GLUCOSE RANDOM (BEAKER) 115 mg/dL 70-105 (test fvik=049) CALCIUM (BEAKER) (test 8.9 mg/dL 8.4-10.2 tnmp=741) EGFR (BEAKER) (test 56 mL/min/1.73 sq m ESTIMATED GFR IS NOT dini=1293) ACCURATE CREATININE CLEARANCE IN PREDICTING GLOMERULAR FILTRATION RATE. ESTIMATED GFR IS NOT APPLICABLE FOR DIALYSIS PATIENTS. POCT-GLUCOSE [id number] 17:59:00 Test Item Value Reference Range Comments POC-GLUCOSE METER (BEAKER) 161 mg/dL 70-110 TESTED AT [address] (test syjx=7213) [place] [address] BODY FLUID CULTURE + GRAM [id number] 13:31:00 Test Item Value Reference Range Comments CULTURE (BEAKER) (test eyph=2953) No growth GRAM STAIN RESULT (BEAKER) (test No organisms seen sxlp=0283) GRAM STAIN RESULT (BEAKER) (test No White blood cells seen khku=38162) POCT-GLUCOSE [id number] 12:31:00 Test Item Value Reference Range Comments POC-GLUCOSE METER (BEAKER) 114 mg/dL 70-110 TESTED AT [address] (test wiqk=3459) [place] [address] BASIC METABOLIC [id number] 11:33:00 Test Item Value Reference Range Comments SODIUM (BEAKER) (test 124 meq/L 136-145 vwfw=754) POTASSIUM (BEAKER) (test 4.1 meq/L 3.5-5.1 putk=089) CHLORIDE (BEAKER) (test 94 meq/L 98-107 tetb=016) CO2 (BEAKER) (test 23 meq/L 22-29 cozw=135) BLOOD UREA NITROGEN 20 mg/dL 7-21 (BEAKER) (test sevg=309) CREATININE (BEAKER) (test 1.22 mg/dL 0.57-1.25 tybj=761) GLUCOSE RANDOM (BEAKER) 94 mg/dL 70-105 (test brzw=028) CALCIUM (BEAKER) (test 8.8 mg/dL 8.4-10.2 wedt=133) EGFR (BEAKER) (test 62 mL/min/1.73 sq m ESTIMATED GFR IS NOT lgzr=0636) ACCURATE CREATININE CLEARANCE IN PREDICTING GLOMERULAR FILTRATION RATE. ESTIMATED GFR IS NOT APPLICABLE FOR DIALYSIS PATIENTS. [id number] 09:24:00 Test Item Value Reference Range Comments FERRITIN (BEAKER) (test zcig=735) 1685 ng/mL 5-275 POCT-GLUCOSE [id number] 07:59:00 Test Item Value Reference Range Comments POC-GLUCOSE METER (BEAKER) 225 mg/dL 70-110 TESTED AT [facility] [address] [facility] (test flfx=5541) [facility] [address] IRON, TIBC, % SAT. (WITHOUT FERRITIN)[id number] 07:54:00 Test Item Value Reference Range Comments IRON (BEAKER) (test ajzh=339) 98 ug/dL 40-160 TOTAL IRON BINDING CAPACITY (BEAKER) (test 90 ug/dL 250-450 ixrx=223) IRON % SATURATION (2) (BEAKER) (test qvaz=2355) 109 % 20-55 CALCIUM, [id number] 07:13:00 Test Item Value Reference Range Comments CALCIUM IONIZED (BEAKER) (test hego=084) 1.10 mmol/L 1.12-1.27 PH, BLOOD (BEAKER) (test szij=1422) 7.37 [id number] 06:32:00 Test Item Value Reference Range Comments PHOSPHORUS (BEAKER) (test fiyv=017) 2.6 mg/dL 2.3-4.7 [id number] 06:32:00 Test Item Value Reference Range Comments MAGNESIUM (BEAKER) (test cfty=146) 1.8 mg/dL 1.6-2.6 COMPREHENSIVE METABOLIC [id number] 06:32:00 Test Item Value Reference Range Comments TOTAL PROTEIN (BEAKER) 5.0 gm/dL 6.0-8.3 (test usog=914) ALBUMIN (BEAKER) (test 3.2 g/dL 3.5-5.0 jlff=1264) ALKALINE PHOSPHATASE 138 U/L 40-150 (BEAKER) (test woni=692) BILIRUBIN TOTAL (BEAKER) 2.1 mg/dL 0.2-1.2 (test srkf=830) SODIUM (BEAKER) (test 126 meq/L 136-145 kuzl=291) POTASSIUM (BEAKER) (test 4.0 meq/L 3.5-5.1 ajcf=946) CHLORIDE (BEAKER) (test 95 meq/L 98-107 awda=784) CO2 (BEAKER) (test 23 meq/L 22-29 nabz=585) BLOOD UREA NITROGEN 21 mg/dL 7-21 (BEAKER) (test iimg=897) CREATININE (BEAKER) (test 1.15 mg/dL 0.57-1.25 orku=204) GLUCOSE RANDOM (BEAKER) 110 mg/dL 70-105 (test mijj=271) CALCIUM (BEAKER) (test 8.8 mg/dL 8.4-10.2 lxxp=718) AST (SGOT) (BEAKER) (test 22 U/L 5-34 wktc=030) ALT (SGPT) (BEAKER) (test 11 U/L 6-55 khtq=018) EGFR (BEAKER) (test 67 mL/min/1.73 sq m ESTIMATED GFR IS NOT jiuu=6440) ACCURATE CREATININE CLEARANCE IN PREDICTING GLOMERULAR FILTRATION RATE. ESTIMATED GFR IS NOT APPLICABLE FOR DIALYSIS PATIENTS. BASIC METABOLIC [id number] 06:32:00 Test Item Value Reference Range Comments SODIUM (BEAKER) (test 126 meq/L 136-145 aunx=160) POTASSIUM (BEAKER) (test 4.0 meq/L 3.5-5.1 bpkw=766) CHLORIDE (BEAKER) (test 95 meq/L 98-107 gtvi=294) CO2 (BEAKER) (test 23 meq/L 22-29 sgdn=304) BLOOD UREA NITROGEN 21 mg/dL 7-21 (BEAKER) (test pfpm=612) CREATININE (BEAKER) (test 1.15 mg/dL 0.57-1.25 nzbm=804) GLUCOSE RANDOM (BEAKER) 110 mg/dL 70-105 (test akpj=030) CALCIUM (BEAKER) (test 8.8 mg/dL 8.4-10.2 djlo=913) EGFR (BEAKER) (test 67 mL/min/1.73 sq m ESTIMATED GFR IS NOT awux=0732) ACCURATE CREATININE CLEARANCE IN PREDICTING GLOMERULAR FILTRATION RATE. ESTIMATED GFR IS NOT APPLICABLE FOR DIALYSIS PATIENTS. BILIRUBIN, [id number] 06:32:00 Test Item Value Reference Range Comments BILIRUBIN DIRECT (BEAKER) (test hoie=204) 1.4 mg/dL 0.1-0.5 PROTHROMBIN [id number] 05:44:00 Test Item Value Reference Range Comments PROTIME (BEAKER) (test toko=275) 20.9 seconds 11.7-14.7 INR (BEAKER) (test wrrw=445) 1.8 <=5.9 RECOMMENDED COUMADIN/WARFARIN INR THERAPY RANGESSTANDARD DOSE: 2.0 - 3.0 Includes: PROPHYLAXIS forvenous thrombosis, systemic embolization; TREATMENT for venous thrombosis and/or pulmonary embolus.HIGH RISK: Target INR is 2.5-3.5 for patients with mechanical heart valves.CBC W/PLT COUNT & AUTO [id number] 05:43:00 Test Item Value Reference Range Comments WHITE BLOOD CELL COUNT (BEAKER) (test yfsv=698) 4.0 K/ L 3.5-10.5 RED BLOOD CELL COUNT (BEAKER) (test adlx=792) 2.30 M/ L 4.63-6.08 HEMOGLOBIN (BEAKER) (test xgvi=873) 7.5 GM/DL 13.7-17.5 HEMATOCRIT (BEAKER) (test xkur=378) 22.0 % 40.1-51.0 MEAN CORPUSCULAR VOLUME (BEAKER) (test xqrr=827) 95.7 fL 79.0-92.2 MEAN CORPUSCULAR HEMOGLOBIN (BEAKER) (test 32.6 pg 25.7-32.2 rxui=750) MEAN CORPUSCULAR HEMOGLOBIN CONC (BEAKER) (test 34.1 GM/DL 32.3-36.5 pnwb=714) RED CELL DISTRIBUTION WIDTH (BEAKER) (test 14.8 % 11.6-14.4 lwmc=850) PLATELET COUNT (BEAKER) (test trkb=825) 51 K/CU MM 150-450 MEAN PLATELET VOLUME (BEAKER) (test qdha=152) 8.8 fL 9.4-12.4 NUCLEATED RED BLOOD CELLS (BEAKER) (test 0 /100 WBC 0-0 qyol=635) NEUTROPHILS RELATIVE PERCENT (BEAKER) (test 61 % dtqy=057) LYMPHOCYTES RELATIVE PERCENT (BEAKER) (test 12 % qtzs=047) MONOCYTES RELATIVE PERCENT (BEAKER) (test 19 % oesy=087) EOSINOPHILS RELATIVE PERCENT (BEAKER) (test 7 % nzrd=988) BASOPHILS RELATIVE PERCENT (BEAKER) (test 0 % yclf=834) NEUTROPHILS ABSOLUTE COUNT (BEAKER) (test 2.43 K/ L 1.78-5.38 dhfk=397) LYMPHOCYTES ABSOLUTE COUNT (BEAKER) (test 0.49 K/ L 1.32-3.57 uore=221) MONOCYTES ABSOLUTE COUNT (BEAKER) (test thcw=923) 0.75 K/ L 0.30-0.82 EOSINOPHILS ABSOLUTE COUNT (BEAKER) (test 0.29 K/ L 0.04-0.54 boxf=311) BASOPHILS ABSOLUTE COUNT (BEAKER) (test zsdw=901) 0.00 K/ L 0.01-0.08 IMMATURE GRANULOCYTES-RELATIVE PERCENT (BEAKER) 1 % 0-1 (test azdh=2905) POCT-GLUCOSE [id number] 22:23:00 Test Item Value Reference Range Comments POC-GLUCOSE METER (BEAKER) 166 mg/dL 70-110 TESTED AT [address] (test hygo=9975) [facility] [id number] POCT-GLUCOSE [id number] 16:12:00 Test Item Value Reference Range Comments POC-GLUCOSE METER (BEAKER) 110 mg/dL 70-110 TESTED AT [address] (test hbwz=7443) [facility] [address] [address], [id number] 15:57:00 Test Item Value Reference Range Comments PARATHYROID HORMONE INTACT (BEAKER) (test 26.2 pg/mL 8.5-72.5 ikff=002) GAMMA GLUTAMYL TRANSFERASE ([id number] 15:51:00 Test Item Value Reference Range Comments GAMMA GLUTAMYL TRANSFERASE (BEAKER) (test llbl=479) 11 U/L 9-64 BASIC METABOLIC [id number] 15:49:00 Test Item Value Reference Range Comments SODIUM (BEAKER) (test 127 meq/L 136-145 yfug=557) POTASSIUM (BEAKER) (test 3.6 meq/L 3.5-5.1 loel=253) CHLORIDE (BEAKER) (test 97 meq/L 98-107 fuxc=094) CO2 (BEAKER) (test 23 meq/L 22-29 pslr=581) BLOOD UREA NITROGEN 20 mg/dL 7-21 (BEAKER) (test hmyr=460) CREATININE (BEAKER) (test 1.19 mg/dL 0.57-1.25 tpwj=182) GLUCOSE RANDOM (BEAKER) 123 mg/dL 70-105 (test xece=537) CALCIUM (BEAKER) (test 8.6 mg/dL 8.4-10.2 uuqe=161) EGFR (BEAKER) (test 64 mL/min/1.73 sq m ESTIMATED GFR IS NOT hngn=7680) ACCURATE CREATININE CLEARANCE IN PREDICTING GLOMERULAR FILTRATION RATE. ESTIMATED GFR IS NOT APPLICABLE FOR DIALYSIS PATIENTS. VITAMIN D, [id number] 15:24:00 Test Item Value Reference Range Comments VITAMIN D 25-OH (BEAKER) (test fmjv=0241) 11.2 ng/mL 6.6-49.9 Effective 08/06/2017: Reference Range ChangeNew: 6.6-49.9 ng/mL Previous: 13.0 -47.8 ng/mLRecommended Vitamin D Target Range: 30.0-40.0 ng/mLPOCT-GLUCOSE [id number] 12:35:00 Test Item Value Reference Range Comments POC-GLUCOSE METER (BEAKER) 138 mg/dL 70-110 TESTED AT [facility] [address] [facility] (test rxmr=6134) [facility] [address] BASIC METABOLIC [id number] 09:59:00 Test Item Value Reference Range Comments SODIUM (BEAKER) (test 130 meq/L 136-145 kffa=019) POTASSIUM (BEAKER) (test 4.1 meq/L 3.5-5.1 puhc=326) CHLORIDE (BEAKER) (test 99 meq/L 98-107 dhaq=533) CO2 (BEAKER) (test 24 meq/L 22-29 kwhv=051) BLOOD UREA NITROGEN 22 mg/dL 7-21 (BEAKER) (test ayse=517) CREATININE (BEAKER) (test 1.31 mg/dL 0.57-1.25 dynh=208) GLUCOSE RANDOM (BEAKER) 121 mg/dL 70-105 (test kefg=875) CALCIUM (BEAKER) (test 9.4 mg/dL 8.4-10.2 iekx=491) EGFR (BEAKER) (test 57 mL/min/1.73 sq m ESTIMATED GFR IS NOT zagq=2991) ACCURATE CREATININE CLEARANCE IN PREDICTING GLOMERULAR FILTRATION RATE. ESTIMATED GFR IS NOT APPLICABLE FOR DIALYSIS PATIENTS. POCT-GLUCOSE [id number] 08:17:00 Test Item Value Reference Range Comments POC-GLUCOSE METER (BEAKER) 131 mg/dL 70-110 TESTED AT [address] (test sfyl=5797) [facility] [address] CALCIUM, [id number] 06:01:00 Test Item Value Reference Range Comments CALCIUM IONIZED (BEAKER) (test sxxt=897) 1.06 mmol/L 1.12-1.27 PH, BLOOD (BEAKER) (test qzkn=2130) 7.42 [id number] 05:52:00 Test Item Value Reference Range Comments PHOSPHORUS (BEAKER) (test jveh=062) 3.1 mg/dL 2.3-4.7 [id number] 05:52:00 Test Item Value Reference Range Comments MAGNESIUM (BEAKER) (test bpht=899) 2.3 mg/dL 1.6-2.6 BASIC METABOLIC [id number] 05:52:00 Test Item Value Reference Range Comments SODIUM (BEAKER) (test 130 meq/L 136-145 vovw=348) POTASSIUM (BEAKER) (test 3.8 meq/L 3.5-5.1 nivu=749) CHLORIDE (BEAKER) (test 98 meq/L 98-107 jydu=068) CO2 (BEAKER) (test 22 meq/L 22-29 waei=916) BLOOD UREA NITROGEN 22 mg/dL 7-21 (BEAKER) (test xdtp=752) CREATININE (BEAKER) (test 1.37 mg/dL 0.57-1.25 sthl=946) GLUCOSE RANDOM (BEAKER) 118 mg/dL 70-105 (test wciq=691) CALCIUM (BEAKER) (test 9.6 mg/dL 8.4-10.2 jzta=691) EGFR (BEAKER) (test 54 mL/min/1.73 sq m ESTIMATED GFR IS NOT tdut=1285) ACCURATE CREATININE CLEARANCE IN PREDICTING GLOMERULAR FILTRATION RATE. ESTIMATED GFR IS NOT APPLICABLE FOR DIALYSIS PATIENTS. Specimen slightly ictericCOMPREHENSIVE METABOLIC [id number] 05:52:00 Test Item Value Reference Range Comments TOTAL PROTEIN (BEAKER) 5.6 gm/dL 6.0-8.3 (test pfnl=360) ALBUMIN (BEAKER) (test 3.6 g/dL 3.5-5.0 acfa=6169) ALKALINE PHOSPHATASE 146 U/L 40-150 (BEAKER) (test nmdv=319) BILIRUBIN TOTAL (BEAKER) 2.5 mg/dL 0.2-1.2 (test jeek=440) SODIUM (BEAKER) (test 130 meq/L 136-145 fpgi=197) POTASSIUM (BEAKER) (test 3.8 meq/L 3.5-5.1 bcql=597) CHLORIDE (BEAKER) (test 98 meq/L 98-107 rkqq=408) CO2 (BEAKER) (test 22 meq/L 22-29 buob=444) BLOOD UREA NITROGEN 22 mg/dL 7-21 (BEAKER) (test urrb=167) CREATININE (BEAKER) (test 1.37 mg/dL 0.57-1.25 xqbh=696) GLUCOSE RANDOM (BEAKER) 118 mg/dL 70-105 (test toae=822) CALCIUM (BEAKER) (test 9.6 mg/dL 8.4-10.2 fyit=980) AST (SGOT) (BEAKER) (test 25 U/L 5-34 ftmw=898) ALT (SGPT) (BEAKER) (test 10 U/L 6-55 rnbx=220) EGFR (BEAKER) (test 54 mL/min/1.73 sq m ESTIMATED GFR IS NOT hbrn=7647) ACCURATE CREATININE CLEARANCE IN PREDICTING GLOMERULAR FILTRATION RATE. ESTIMATED GFR IS NOT APPLICABLE FOR DIALYSIS PATIENTS. Specimen slightly ictericBILIRUBIN, [id number] 05:52:00 Test Item Value Reference Range Comments BILIRUBIN DIRECT (BEAKER) (test esof=649) 1.6 mg/dL 0.1-0.5 PROTHROMBIN [id number] 05:41:00 Test Item Value Reference Range Comments PROTIME (BEAKER) (test hvkk=440) 21.3 seconds 11.7-14.7 INR (BEAKER) (test ecfy=808) 1.8 <=5.9 RECOMMENDED COUMADIN/WARFARIN INR THERAPY RANGESSTANDARD DOSE: 2.0 - 3.0 Includes: PROPHYLAXIS forvenous thrombosis, systemic embolization; TREATMENT for venous thrombosis and/or pulmonary embolus.HIGH RISK: Target INR is 2.5-3.5 for patients with mechanical heart valves.CBC W/PLT COUNT & AUTO [id number] 05:32:00 Test Item Value Reference Range Comments WHITE BLOOD CELL COUNT (BEAKER) (test jjwc=724) 5.0 K/ L 3.5-10.5 RED BLOOD CELL COUNT (BEAKER) (test udfs=547) 2.53 M/ L 4.63-6.08 HEMOGLOBIN (BEAKER) (test akwx=619) 8.1 GM/DL 13.7-17.5 HEMATOCRIT (BEAKER) (test acnt=810) 23.6 % 40.1-51.0 MEAN CORPUSCULAR VOLUME (BEAKER) (test fwjc=408) 93.3 fL 79.0-92.2 MEAN CORPUSCULAR HEMOGLOBIN (BEAKER) (test 32.0 pg 25.7-32.2 xxte=263) MEAN CORPUSCULAR HEMOGLOBIN CONC (BEAKER) (test 34.3 GM/DL 32.3-36.5 kewg=824) RED CELL DISTRIBUTION WIDTH (BEAKER) (test 14.6 % 11.6-14.4 hdhc=119) PLATELET COUNT (BEAKER) (test qtae=346) 73 K/CU MM 150-450 MEAN PLATELET VOLUME (BEAKER) (test hosf=845) 8.8 fL 9.4-12.4 NUCLEATED RED BLOOD CELLS (BEAKER) (test 0 /100 WBC 0-0 giwk=746) NEUTROPHILS RELATIVE PERCENT (BEAKER) (test 71 % zuop=952) LYMPHOCYTES RELATIVE PERCENT (BEAKER) (test 10 % uwwe=543) MONOCYTES RELATIVE PERCENT (BEAKER) (test 16 % jrtw=235) EOSINOPHILS RELATIVE PERCENT (BEAKER) (test 3 % hpko=579) BASOPHILS RELATIVE PERCENT (BEAKER) (test 0 % xaic=563) NEUTROPHILS ABSOLUTE COUNT (BEAKER) (test 3.56 K/ L 1.78-5.38 przz=412) LYMPHOCYTES ABSOLUTE COUNT (BEAKER) (test 0.48 K/ L 1.32-3.57 nbjy=072) MONOCYTES ABSOLUTE COUNT (BEAKER) (test bsyk=285) 0.80 K/ L 0.30-0.82 EOSINOPHILS ABSOLUTE COUNT (BEAKER) (test 0.13 K/ L 0.04-0.54 tqzj=270) BASOPHILS ABSOLUTE COUNT (BEAKER) (test cvra=453) 0.01 K/ L 0.01-0.08 IMMATURE GRANULOCYTES-RELATIVE PERCENT (BEAKER) 1 % 0-1 (test bakt=9771) POCT-GLUCOSE [id number] 21:24:00 Test Item Value Reference Range Comments POC-GLUCOSE METER (BEAKER) 137 mg/dL 70-110 TESTED AT [address] (test azeh=9898) [place] [address] POCT-GLUCOSE [id number] 17:52:00 Test Item Value Reference Range Comments POC-GLUCOSE METER (BEAKER) 166 mg/dL 70-110 TESTED AT [address] (test zudv=7826) [place] [id number] BASIC METABOLIC [id number] 17:48:00 Test Item Value Reference Range Comments SODIUM (BEAKER) (test 128 meq/L 136-145 jyaj=174) POTASSIUM (BEAKER) (test 4.0 meq/L 3.5-5.1 iizh=317) CHLORIDE (BEAKER) (test 97 meq/L 98-107 ouuw=860) CO2 (BEAKER) (test 23 meq/L 22-29 pozl=326) BLOOD UREA NITROGEN 24 mg/dL 7-21 (BEAKER) (test budh=362) CREATININE (BEAKER) (test 1.25 mg/dL 0.57-1.25 gjlr=769) GLUCOSE RANDOM (BEAKER) 123 mg/dL 70-105 (test vdrh=435) CALCIUM (BEAKER) (test 8.9 mg/dL 8.4-10.2 hpit=232) EGFR (BEAKER) (test 60 mL/min/1.73 sq m ESTIMATED GFR IS NOT lxrl=8379) ACCURATE CREATININE CLEARANCE IN PREDICTING GLOMERULAR FILTRATION RATE. ESTIMATED GFR IS NOT APPLICABLE FOR DIALYSIS PATIENTS. POCT-GLUCOSE [id number] 12:18:00 Test Item Value Reference Range Comments POC-GLUCOSE METER (BEAKER) 152 mg/dL 70-110 TESTED AT [address] (test tqrc=3791) [place] [address] POCT-GLUCOSE [id number] 09:31:00 Test Item Value Reference Range Comments POC-GLUCOSE METER (BEAKER) 142 mg/dL 70-110 TESTED AT [address] (test anes=3633) [place] [address] BASIC METABOLIC [id number] 09:03:00 Test Item Value Reference Range Comments SODIUM (BEAKER) (test 125 meq/L 136-145 wmxr=584) POTASSIUM (BEAKER) (test 5.1 meq/L 3.5-5.1 Specimen slightly xlss=869) hemolyzed CHLORIDE (BEAKER) (test 95 meq/L 98-107 ckmw=142) CO2 (BEAKER) (test 23 meq/L 22-29 dzyd=136) BLOOD UREA NITROGEN 26 mg/dL 7-21 (BEAKER) (test aiur=640) CREATININE (BEAKER) (test 1.25 mg/dL 0.57-1.25 Specimen slightly zemw=598) hemolyzed GLUCOSE RANDOM (BEAKER) 99 mg/dL 70-105 (test gugu=177) CALCIUM (BEAKER) (test 9.0 mg/dL 8.4-10.2 enqm=633) EGFR (BEAKER) (test 60 mL/min/1.73 sq m ESTIMATED GFR IS NOT ofaq=5947) ACCURATE CREATININE CLEARANCE IN PREDICTING GLOMERULAR FILTRATION RATE. ESTIMATED GFR IS NOT APPLICABLE FOR DIALYSIS PATIENTS. POCT-GLUCOSE [id number] 08:38:00 Test Item Value Reference Range Comments POC-GLUCOSE METER (BEAKER) 171 mg/dL 70-110 TESTED AT [address] (test qcxb=1727) [place] [address] [id number] 05:30:00 Test Item Value Reference Range Comments PHOSPHORUS (BEAKER) (test esci=399) 2.9 mg/dL 2.3-4.7 [id number] 05:30:00 Test Item Value Reference Range Comments MAGNESIUM (BEAKER) (test pjdb=251) 2.2 mg/dL 1.6-2.6 COMPREHENSIVE METABOLIC [id number] 05:30:00 Test Item Value Reference Range Comments TOTAL PROTEIN (BEAKER) 5.2 gm/dL 6.0-8.3 (test inru=772) ALBUMIN (BEAKER) (test 3.4 g/dL 3.5-5.0 mmrc=6168) ALKALINE PHOSPHATASE 134 U/L 40-150 (BEAKER) (test qwho=749) BILIRUBIN TOTAL (BEAKER) 2.3 mg/dL 0.2-1.2 (test ghff=329) SODIUM (BEAKER) (test 124 meq/L 136-145 mozd=062) POTASSIUM (BEAKER) (test 4.9 meq/L 3.5-5.1 hvus=358) CHLORIDE (BEAKER) (test 94 meq/L 98-107 tyfb=917) CO2 (BEAKER) (test 24 meq/L 22-29 ntnu=355) BLOOD UREA NITROGEN 27 mg/dL 7-21 (BEAKER) (test gyde=628) CREATININE (BEAKER) (test 1.27 mg/dL 0.57-1.25 ueqc=780) GLUCOSE RANDOM (BEAKER) 122 mg/dL 70-105 (test pgok=764) CALCIUM (BEAKER) (test 9.2 mg/dL 8.4-10.2 lmtv=395) AST (SGOT) (BEAKER) (test 24 U/L 5-34 uunp=179) ALT (SGPT) (BEAKER) (test 10 U/L 6-55 pkeb=612) EGFR (BEAKER) (test 59 mL/min/1.73 sq m ESTIMATED GFR IS NOT mkws=3392) ACCURATE CREATININE CLEARANCE IN PREDICTING GLOMERULAR FILTRATION RATE. ESTIMATED GFR IS NOT APPLICABLE FOR DIALYSIS PATIENTS. BILIRUBIN, [id number] 05:30:00 Test Item Value Reference Range Comments BILIRUBIN DIRECT (BEAKER) (test xbmj=884) 1.5 mg/dL 0.1-0.5 PROTHROMBIN [id number] 05:09:00 Test Item Value Reference Range Comments PROTIME (BEAKER) (test onae=700) 22.3 seconds 11.7-14.7 INR (BEAKER) (test vcsj=494) 2.0 <=5.9 RECOMMENDED COUMADIN/WARFARIN INR THERAPY RANGESSTANDARD DOSE: 2.0 - 3.0 Includes: PROPHYLAXIS forvenous thrombosis, systemic embolization; TREATMENT for venous thrombosis and/or pulmonary embolus.HIGH RISK: Target INR is 2.5-3.5 for patients with mechanical heart valves.CBC W/PLT COUNT & AUTO [id number] 04:59:00 Test Item Value Reference Range Comments WHITE BLOOD CELL COUNT (BEAKER) (test gvdv=437) 5.0 K/ L 3.5-10.5 RED BLOOD CELL COUNT (BEAKER) (test warn=882) 2.24 M/ L 4.63-6.08 HEMOGLOBIN (BEAKER) (test lgnf=862) 7.2 GM/DL 13.7-17.5 HEMATOCRIT (BEAKER) (test ofni=080) 20.8 % 40.1-51.0 MEAN CORPUSCULAR VOLUME (BEAKER) (test kwys=719) 92.9 fL 79.0-92.2 MEAN CORPUSCULAR HEMOGLOBIN (BEAKER) (test 32.1 pg 25.7-32.2 dolr=958) MEAN CORPUSCULAR HEMOGLOBIN CONC (BEAKER) (test 34.6 GM/DL 32.3-36.5 smqh=301) RED CELL DISTRIBUTION WIDTH (BEAKER) (test 14.2 % 11.6-14.4 rfnu=152) PLATELET COUNT (BEAKER) (test ccnk=453) 56 K/CU MM 150-450 MEAN PLATELET VOLUME (BEAKER) (test wqxq=227) 8.9 fL 9.4-12.4 NUCLEATED RED BLOOD CELLS (BEAKER) (test 0 /100 WBC 0-0 lzuf=252) NEUTROPHILS RELATIVE PERCENT (BEAKER) (test 82 % xeod=719) LYMPHOCYTES RELATIVE PERCENT (BEAKER) (test 5 % arni=903) MONOCYTES RELATIVE PERCENT (BEAKER) (test 12 % djed=094) EOSINOPHILS RELATIVE PERCENT (BEAKER) (test 0 % oava=179) BASOPHILS RELATIVE PERCENT (BEAKER) (test 0 % atmt=054) NEUTROPHILS ABSOLUTE COUNT (BEAKER) (test 4.12 K/ L 1.78-5.38 rhad=661) LYMPHOCYTES ABSOLUTE COUNT (BEAKER) (test 0.26 K/ L 1.32-3.57 maly=017) MONOCYTES ABSOLUTE COUNT (BEAKER) (test oqus=025) 0.59 K/ L 0.30-0.82 EOSINOPHILS ABSOLUTE COUNT (BEAKER) (test 0.00 K/ L 0.04-0.54 uluu=887) BASOPHILS ABSOLUTE COUNT (BEAKER) (test yfsr=012) 0.00 K/ L 0.01-0.08 IMMATURE GRANULOCYTES-RELATIVE PERCENT (BEAKER) 1 % 0-1 (test yqzz=2116) CALCIUM, [id number] 04:57:00 Test Item Value Reference Range Comments CALCIUM IONIZED (BEAKER) (test ayfb=480) 1.14 mmol/L 1.12-1.27 PH, BLOOD (BEAKER) (test ledi=4870) 7.39 POCT-GLUCOSE [id number] 00:41:00 Test Item Value Reference Range Comments POC-GLUCOSE METER (BEAKER) 186 mg/dL 70-110 TESTED AT [facility] [address] [facility] (test ukgc=6849) [facility] [address] CORTISOL,60 [id number] 23:00:00 Test Item Value Reference Range Comments CORTISOL BASELINE NETWORKED (BEAKER) (test 7.5 mcg/dL bpqu=1194) CORTISOL 30 MINUTE NETWORKED (BEAKER) (test 14.1 mcg/dL nnro=9417) CORTISOL, 60 MINUTE (BEAKER) (test drhk=0782) 18.9 ug/dL ACTH STIMULATION TEST INTERPRETATION GUIDELINES(Synonyms: [...] serum cortisollevel 60 minutes after cosyntropin administration.CORTISOL,30 [id number] 22:05:00 Test Item Value Reference Range Comments CORTISOL BASELINE NETWORKED (BEAKER) (test 7.5 mcg/dL zqng=9770) CORTISOL, 30 MINUTE (BEAKER) (test cjik=5239) 14.1 ug/dL ACTH STIMULATION TEST INTERPRETATION GUIDELINES(Synonyms: [...] study by Mindy et al (NEVAEH 2000,283( 8):7600-45), the ACTH Stimulation Test provides important prognostic [...] cortisollevel 60 minutes after cosyntropin administration.BASIC METABOLIC [id number] 21:42:00 Test Item Value Reference Range Comments SODIUM (BEAKER) (test 123 meq/L 136-145 jhbi=712) POTASSIUM (BEAKER) (test 4.3 meq/L 3.5-5.1 xcso=909) CHLORIDE (BEAKER) (test 93 meq/L 98-107 sdkb=506) CO2 (BEAKER) (test 24 meq/L 22-29 xtjy=146) BLOOD UREA NITROGEN 29 mg/dL 7-21 (BEAKER) (test ieav=843) CREATININE (BEAKER) (test 1.38 mg/dL 0.57-1.25 nrrn=657) GLUCOSE RANDOM (BEAKER) 109 mg/dL 70-105 (test daug=991) CALCIUM (BEAKER) (test 9.2 mg/dL 8.4-10.2 iizi=638) EGFR (BEAKER) (test 54 mL/min/1.73 sq m ESTIMATED GFR IS NOT zmnt=0623) ACCURATE CREATININE CLEARANCE IN PREDICTING GLOMERULAR FILTRATION RATE. ESTIMATED GFR IS NOT APPLICABLE FOR DIALYSIS PATIENTS. Call results to Dr Almendarez METABOLIC [id number] 18:03:00 Test Item Value Reference Range Comments SODIUM (BEAKER) (test 124 meq/L 136-145 pdzz=584) POTASSIUM (BEAKER) (test 4.6 meq/L 3.5-5.1 cnmh=151) CHLORIDE (BEAKER) (test 93 meq/L 98-107 dxfh=532) CO2 (BEAKER) (test 25 meq/L 22-29 kmhm=022) BLOOD UREA NITROGEN 32 mg/dL 7-21 (BEAKER) (test vjxk=749) CREATININE (BEAKER) (test 1.40 mg/dL 0.57-1.25 apfg=935) GLUCOSE RANDOM (BEAKER) 94 mg/dL 70-105 (test oodu=989) CALCIUM (BEAKER) (test 9.0 mg/dL 8.4-10.2 audj=980) EGFR (BEAKER) (test 53 mL/min/1.73 sq m ESTIMATED GFR IS NOT nflq=4607) ACCURATE CREATININE CLEARANCE IN PREDICTING GLOMERULAR FILTRATION RATE. ESTIMATED GFR IS NOT APPLICABLE FOR DIALYSIS PATIENTS. BODY FLUID CELL COUNT WITH [id number] 13:54:00 Test Item Value Reference Range Comments APPEARANCE FLUID (BEAKER) (test icar=605) Slightly Hazy Clear COLOR FLUID (BEAKER) (test mozz=842) Yellow Colorless, Straw RBC FLUID (BEAKER) (test gcfp=905) 1000 /cu mm <=1 ADJUSTED WBC FLUID (BEAKER) (test emlu=3836) 54 /cu mm <=5 LINING CELLS (BEAKER) (test wohm=2551) 2 /cu mm <=1 NEUTROPHILS FLUID (BEAKER) (test cfjl=1324) 6 % LYMPHS FLUID (BEAKER) (test btqp=042) 25 % MONO/MACROPHAGE FLUID (BEAKER) (test 69 % icwo=574) EOSINOPHILS FLUID (BEAKER) (test fjyg=943) 0 % BASO FLUID (BEAKER) (test cjti=194) 0 % CONTAINER BODY FLUID (BEAKER) (test Sterile Vial boec=4037) ALBUMIN, BODY [id number] 13:45:00 Test Item Value Reference Range Comments ALBUMIN FLUID (BEAKER) (test dfsi=242) 0.8 gm/dL Reference Range: No Normals Assay performance has not been validated for this type of specimen.LACTATE DEHYDROGENASE (LDH), BODY [id number] 13:13:00 Test Item Value Reference Range Comments LACTATE DEHYDROGENASE FLUID (BEAKER) (test uble=420) < U/L Absence of reference range indicates that normals have not been defined.Assay performance has not been validated for this type of specimen.GLUCOSE, BODY [id number] 13:13:00 Test Item Value Reference Range Comments GLUCOSE, BODY FLUID (BEAKER) (test lpdv=4973) 82 mg/dL Absence of reference range indicates that normals have not been defined.Assay performance has not been validated for this type of specimen.TRIGLYCERIDES, BODY [id number] 13:10:00 Test Item Value Reference Range Comments TRIGLYCERIDES FLUID (BEAKER) (test iwgy=265) 39 mg/dL Reference Range: No Normals Assay performance has not been validated for this type of specimen.PROTEIN, BODY [id number] 13:09:00 Test Item Value Reference Range Comments PROTEIN FLUID (BEAKER) (test omda=503) 1.2 g/dL Absence of reference range indicates that normals have not been defined.Assay performance has not been validated for this type of specimen.CORTISOL, [id number] 12:52:00 Test Item Value Reference Range Comments CORTISOL, BASELINE (BEAKER) (test hoto=6700) 7.5 ug/dL ACTH STIMULATION TEST INTERPRETATION GUIDELINES(Synonyms: [...] cortisollevel 60 minutes after cosyntropin administration.BASIC METABOLIC [id number] 12:40:00 Test Item Value Reference Range Comments SODIUM (BEAKER) (test 119 meq/L 136-145 aizk=441) POTASSIUM (BEAKER) (test 5.2 meq/L 3.5-5.1 gude=790) CHLORIDE (BEAKER) (test 90 meq/L 98-107 vwaq=941) CO2 (BEAKER) (test 23 meq/L 22-29 ubya=374) BLOOD UREA NITROGEN 34 mg/dL 7-21 (BEAKER) (test mcao=144) CREATININE (BEAKER) (test 1.46 mg/dL 0.57-1.25 izvp=230) GLUCOSE RANDOM (BEAKER) 84 mg/dL 70-105 (test cadh=880) CALCIUM (BEAKER) (test 8.8 mg/dL 8.4-10.2 azzb=934) EGFR (BEAKER) (test 51 mL/min/1.73 sq m ESTIMATED GFR IS NOT ptzf=7263) ACCURATE CREATININE CLEARANCE IN PREDICTING GLOMERULAR FILTRATION RATE. ESTIMATED GFR IS NOT APPLICABLE FOR DIALYSIS PATIENTS. Specimen slightly ictericRAD, CHEST, 1 VIEW, NON [id number] 11:50:00Reason for exam:->coughShould this be performed at the bedside?->YesFINAL REPORT Chest one view compared to May 12, 2018 Discussion: There is diffuse interstitial prominence. No effusion or pneumothorax. Heart size normal. IMPRESSIONS: No changeSigned: Nisbet, Karina MDReport Verified Date/ Time: 08/26/2018 11:50:19 Reading Location: [facility] Reading Room BASIC METABOLIC [id number] 09:35:00 Test Item Value Reference Range Comments SODIUM (BEAKER) (test 119 meq/L 136-145 zjyu=876) POTASSIUM (BEAKER) (test 4.9 meq/L 3.5-5.1 mfjc=768) CHLORIDE (BEAKER) (test 89 meq/L 98-107 ssyj=580) CO2 (BEAKER) (test 23 meq/L 22-29 aqca=588) BLOOD UREA NITROGEN 36 mg/dL 7-21 (BEAKER) (test befn=046) CREATININE (BEAKER) (test 1.46 mg/dL 0.57-1.25 buol=618) GLUCOSE RANDOM (BEAKER) 83 mg/dL 70-105 (test dpcw=433) CALCIUM (BEAKER) (test 8.8 mg/dL 8.4-10.2 ehgv=397) EGFR (BEAKER) (test 51 mL/min/1.73 sq m ESTIMATED GFR IS NOT okwp=0419) ACCURATE CREATININE CLEARANCE IN PREDICTING GLOMERULAR FILTRATION RATE. ESTIMATED GFR IS NOT APPLICABLE FOR DIALYSIS PATIENTS. POCT-GLUCOSE [id number] 05:56:00 Test Item Value Reference Range Comments POC-GLUCOSE METER (BEAKER) 86 mg/dL 70-110 TESTED AT [facility] [address] [facility] (test wfjv=8055) [facility] [address] CBC W/PLT COUNT & AUTO [id number] 04:42:00 Test Item Value Reference Range Comments WHITE BLOOD CELL COUNT (BEAKER) (test gddv=628) 10.5 K/ L 3.5-10.5 RED BLOOD CELL COUNT (BEAKER) (test dfpy=723) 2.37 M/ L 4.63-6.08 HEMOGLOBIN (BEAKER) (test gdrq=530) 7.4 GM/DL 13.7-17.5 HEMATOCRIT (BEAKER) (test zlds=745) 21.6 % 40.1-51.0 MEAN CORPUSCULAR VOLUME (BEAKER) (test qmrw=188) 91.1 fL 79.0-92.2 MEAN CORPUSCULAR HEMOGLOBIN (BEAKER) (test 31.2 pg 25.7-32.2 tqyr=968) MEAN CORPUSCULAR HEMOGLOBIN CONC (BEAKER) (test 34.3 GM/DL 32.3-36.5 irtq=813) RED CELL DISTRIBUTION WIDTH (BEAKER) (test 14.4 % 11.6-14.4 bcna=092) PLATELET COUNT (BEAKER) (test qeuo=949) 67 K/CU MM 150-450 MEAN PLATELET VOLUME (BEAKER) (test ijnr=467) 8.3 fL 9.4-12.4 NUCLEATED RED BLOOD CELLS (BEAKER) (test 0 /100 WBC 0-0 ytgh=773) NEUTROPHILS RELATIVE PERCENT (BEAKER) (test 82 % ebnf=307) LYMPHOCYTES RELATIVE PERCENT (BEAKER) (test 4 % yaaq=777) MONOCYTES RELATIVE PERCENT (BEAKER) (test 12 % yuvn=827) EOSINOPHILS RELATIVE PERCENT (BEAKER) (test 1 % kuec=027) BASOPHILS RELATIVE PERCENT (BEAKER) (test 0 % crof=272) NEUTROPHILS ABSOLUTE COUNT (BEAKER) (test 8.62 K/ L 1.78-5.38 apaj=581) LYMPHOCYTES ABSOLUTE COUNT (BEAKER) (test 0.45 K/ L 1.32-3.57 ajhc=207) MONOCYTES ABSOLUTE COUNT (BEAKER) (test rfgs=818) 1.31 K/ L 0.30-0.82 EOSINOPHILS ABSOLUTE COUNT (BEAKER) (test 0.10 K/ L 0.04-0.54 itzc=344) BASOPHILS ABSOLUTE COUNT (BEAKER) (test idql=007) 0.00 K/ L 0.01-0.08 IMMATURE GRANULOCYTES-RELATIVE PERCENT (BEAKER) 1 % 0-1 (test jkux=1543) COMPREHENSIVE METABOLIC [id number] 04:36:00 Test Item Value Reference Range Comments TOTAL PROTEIN (BEAKER) 4.9 gm/dL 6.0-8.3 (test ajqi=011) ALBUMIN (BEAKER) (test 2.8 g/dL 3.5-5.0 kkan=5617) ALKALINE PHOSPHATASE 146 U/L 40-150 (BEAKER) (test mmki=077) BILIRUBIN TOTAL (BEAKER) 2.9 mg/dL 0.2-1.2 (test fjaf=503) SODIUM (BEAKER) (test 118 meq/L 136-145 hpbt=746) POTASSIUM (BEAKER) (test 5.2 meq/L 3.5-5.1 xldq=838) CHLORIDE (BEAKER) (test 90 meq/L 98-107 ipas=902) CO2 (BEAKER) (test 23 meq/L 22-29 kvcm=672) BLOOD UREA NITROGEN 37 mg/dL 7-21 (BEAKER) (test kkcj=072) CREATININE (BEAKER) (test 1.47 mg/dL 0.57-1.25 wcjd=536) GLUCOSE RANDOM (BEAKER) 65 mg/dL 70-105 (test nnvy=953) CALCIUM (BEAKER) (test 8.9 mg/dL 8.4-10.2 ozqd=882) AST (SGOT) (BEAKER) (test 29 U/L 5-34 hhug=681) ALT (SGPT) (BEAKER) (test 10 U/L 6-55 nzrx=585) EGFR (BEAKER) (test 50 mL/min/1.73 sq m ESTIMATED GFR IS NOT sdvg=3198) ACCURATE CREATININE CLEARANCE IN PREDICTING GLOMERULAR FILTRATION RATE. ESTIMATED GFR IS NOT APPLICABLE FOR DIALYSIS PATIENTS. Specimen slightly [id number] 04:33:00 Test Item Value Reference Range Comments PHOSPHORUS (BEAKER) (test vpys=072) 3.1 mg/dL 2.3-4.7 [id number] 04:33:00 Test Item Value Reference Range Comments MAGNESIUM (BEAKER) (test viwr=107) 2.1 mg/dL 1.6-2.6 CALCIUM, [id number] 04:05:00 Test Item Value Reference Range Comments CALCIUM IONIZED (BEAKER) (test yxvq=013) 1.13 mmol/L 1.12-1.27 PH, BLOOD (BEAKER) (test sktn=2148) 7.38 BASIC METABOLIC [id number] 01:34:00 Test Item Value Reference Range Comments SODIUM (BEAKER) (test 117 meq/L 136-145 rcmi=524) POTASSIUM (BEAKER) (test 4.9 meq/L 3.5-5.1 frii=936) CHLORIDE (BEAKER) (test 89 meq/L 98-107 gjkd=801) CO2 (BEAKER) (test 22 meq/L 22-29 nygv=869) BLOOD UREA NITROGEN 37 mg/dL 7-21 (BEAKER) (test wwyp=526) CREATININE (BEAKER) (test 1.52 mg/dL 0.57-1.25 mqlr=149) GLUCOSE RANDOM (BEAKER) 67 mg/dL 70-105 (test ptii=605) CALCIUM (BEAKER) (test 9.1 mg/dL 8.4-10.2 zyzf=115) EGFR (BEAKER) (test 48 mL/min/1.73 sq m ESTIMATED GFR IS NOT knci=9233) ACCURATE CREATININE CLEARANCE IN PREDICTING GLOMERULAR FILTRATION RATE. ESTIMATED GFR IS NOT APPLICABLE FOR DIALYSIS PATIENTS. Specimen slightly ictericU/S, ABDOMINAL, [id number] 23:49:00Abdomen limited area? Add comment if clarification [...] [place] Verified Date/Time: 08/25/2018 23:49:36 Reading Location: [facility] B1 C[address]Y CT Body Reading Room POCT-GLUCOSE [id number] 23:16:00 Test Item Value Reference Range Comments POC-GLUCOSE METER (BEAKER) 89 mg/dL 70-110 TESTED AT [facility] [address] [facility] (test fxip=0114) [facility] [address] COMPREHENSIVE METABOLIC [id number] 21:15:00 Test Item Value Reference Range Comments TOTAL PROTEIN (BEAKER) 5.4 gm/dL 6.0-8.3 (test vvdf=252) ALBUMIN (BEAKER) (test 3.1 g/dL 3.5-5.0 nwxq=5356) ALKALINE PHOSPHATASE 164 U/L 40-150 (BEAKER) (test styv=697) BILIRUBIN TOTAL (BEAKER) 3.1 mg/dL 0.2-1.2 (test agku=779) SODIUM (BEAKER) (test 116 meq/L 136-145 otrv=925) POTASSIUM (BEAKER) (test 5.0 meq/L 3.5-5.1 ostc=528) CHLORIDE (BEAKER) (test 87 meq/L 98-107 ithy=797) CO2 (BEAKER) (test 22 meq/L 22-29 txwh=691) BLOOD UREA NITROGEN 38 mg/dL 7-21 (BEAKER) (test rpwz=974) CREATININE (BEAKER) (test 1.52 mg/dL 0.57-1.25 jstg=917) GLUCOSE RANDOM (BEAKER) 67 mg/dL 70-105 (test nlru=792) CALCIUM (BEAKER) (test 9.1 mg/dL 8.4-10.2 qavw=214) AST (SGOT) (BEAKER) (test 30 U/L 5-34 ntlc=484) ALT (SGPT) (BEAKER) (test 10 U/L 6-55 hrun=304) EGFR (BEAKER) (test 48 mL/min/1.73 sq m ESTIMATED GFR IS NOT luzu=4063) ACCURATE CREATININE CLEARANCE IN PREDICTING GLOMERULAR FILTRATION RATE. ESTIMATED GFR IS NOT APPLICABLE FOR DIALYSIS PATIENTS. Recheck and call Dr. Solorio with results [phone] slightly ictericBASIC METABOLIC [id number] 17:36:00 Test Item Value Reference Range Comments SODIUM (BEAKER) (test 119 meq/L 136-145 tvay=244) POTASSIUM (BEAKER) (test 5.0 meq/L 3.5-5.1 tijw=425) CHLORIDE (BEAKER) (test 89 meq/L 98-107 ktmt=387) CO2 (BEAKER) (test 22 meq/L 22-29 zhqn=518) BLOOD UREA NITROGEN 38 mg/dL 7-21 (BEAKER) (test coqn=036) CREATININE (BEAKER) (test 1.50 mg/dL 0.57-1.25 azrd=394) GLUCOSE RANDOM (BEAKER) 70 mg/dL 70-105 (test dhfe=461) CALCIUM (BEAKER) (test 8.9 mg/dL 8.4-10.2 jvhy=711) EGFR (BEAKER) (test 49 mL/min/1.73 sq m ESTIMATED GFR IS NOT wubp=0168) ACCURATE CREATININE CLEARANCE IN PREDICTING GLOMERULAR FILTRATION RATE. ESTIMATED GFR IS NOT APPLICABLE FOR DIALYSIS PATIENTS. Specimen slightly ictericCT, CHEST, WITH HIGH RESOLUTION, INTERSTITAL LUNG [id number] 17:36:00Reason for exam:->follow up for lung noduleFINAL [...] MDReport Verified Date/Time: 08/25/2018 17:36:51 Reading Location: [facility] B1 C013Y CT Body Reading Room CT, SPINE, LUMBAR, WO [id number] 17:06:00FINAL REPORT CT thoracic and lumbar spine [...] Nonskeletal findings as discussed. Signed: Chase Bain Verified Date/Time: 08/25/2018 17:06:21 Reading Location: [facility] Radiology Reading Room CT, SPINE, THORACIC, WO [id number] 17:06:00FINAL REPORT CT thoracic and lumbar spine [...] Verified Date/Time: 08/25/2018 17: 06:21 Reading Location: [facility] Radiology Reading Room EOSINOPHIL SMEAR, [id number] 16:40:00 Test Item Value Reference Range Comments EOSINOPHIL SMEAR, URINE (BEAKER) (test No EOS seen No EOS seen bujv=9481) SODIUM, RANDOM [id number] 15:13:00 Test Item Value Reference Range Comments SODIUM URINE (BEAKER) (test pgre=286) < meq/L Reference Range: No NormalsCOMPREHENSIVE METABOLIC [id number] 15:12:00 Test Item Value Reference Range Comments TOTAL PROTEIN (BEAKER) 5.0 gm/dL 6.0-8.3 (test ngau=975) ALBUMIN (BEAKER) (test 2.9 g/dL 3.5-5.0 uiid=5949) ALKALINE PHOSPHATASE 154 U/L 40-150 (BEAKER) (test nuul=990) BILIRUBIN TOTAL (BEAKER) 3.1 mg/dL 0.2-1.2 (test wkld=639) SODIUM (BEAKER) (test 116 meq/L 136-145 vsso=219) POTASSIUM (BEAKER) (test 4.8 meq/L 3.5-5.1 lvuw=526) CHLORIDE (BEAKER) (test 87 meq/L 98-107 imfh=904) CO2 (BEAKER) (test 24 meq/L 22-29 nyft=526) BLOOD UREA NITROGEN 39 mg/dL 7-21 (BEAKER) (test rqdh=268) CREATININE (BEAKER) (test 1.53 mg/dL 0.57-1.25 wrvu=151) GLUCOSE RANDOM (BEAKER) 67 mg/dL 70-105 (test hjdb=059) CALCIUM (BEAKER) (test 8.6 mg/dL 8.4-10.2 nwaa=022) AST (SGOT) (BEAKER) (test 24 U/L 5-34 poix=685) ALT (SGPT) (BEAKER) (test 11 U/L 6-55 nzcm=950) EGFR (BEAKER) (test 48 mL/min/1.73 sq m ESTIMATED GFR IS NOT cwuz=2431) ACCURATE CREATININE CLEARANCE IN PREDICTING GLOMERULAR FILTRATION RATE. ESTIMATED GFR IS NOT APPLICABLE FOR DIALYSIS PATIENTS. Specimen slightly ictericPROTEIN, RANDOM [id number] 15:12:00 Test Item Value Reference Range Comments PROTEIN, URINE (BEAKER) (test vxgo=0853) < mg/dL 0-14 CREATININE, RANDOM [id number] 15:10:00 Test Item Value Reference Range Comments CREATININE URINE (BEAKER) (test ggyi=037) 75.0 mg/dL Reference Range: No NormalsURINALYSIS W/ [id number] 14:55:00 Test Item Value Reference Range Comments COLOR (BEAKER) (test tbql=259) Yellow CLARITY (BEAKER) (test kqjd=439) Hazy SPECIFIC GRAVITY UA (BEAKER) (test weck=352) 1.009 1.001-1.035 PH UA (BEAKER) (test lfid=048) 5.5 5.0-8.0 PROTEIN UA (BEAKER) (test pkjw=703) Negative Negative GLUCOSE UA (BEAKER) (test kvkj=862) Negative Negative KETONES UA (BEAKER) (test rerc=093) Negative Negative BILIRUBIN UA (BEAKER) (test yqvy=422) Negative Negative BLOOD UA (BEAKER) (test qkzo=652) Small Negative NITRITE UA (BEAKER) (test ypcs=916) Negative Negative LEUKOCYTE ESTERASE UA (BEAKER) (test qjex=341) Negative Negative UROBILINOGEN UA (BEAKER) (test tsoj=176) 0.2 mg/dL 0.2-1.0 RBC UA (BEAKER) (test dtib=445) 20 /HPF WBC UA (BEAKER) (test ywub=338) 27 /HPF SQUAMOUS EPITHELIAL (BEAKER) (test iaip=132) 18 /HPF SOURCE(BEAKER) (test bluv=5438) URINALYSIS W/ REFLEX URINE [id number] 14:47:00 Test Item Value Reference Range Comments COLOR (BEAKER) (test aerj=879) Yellow CLARITY (BEAKER) (test yixz=344) Hazy SPECIFIC GRAVITY UA (BEAKER) (test ehbl=593) 1.010 1.001-1.035 PH UA (BEAKER) (test gofx=421) 5.5 5.0-8.0 PROTEIN UA (BEAKER) (test ptvw=011) Negative Negative GLUCOSE UA (BEAKER) (test efsw=963) Negative Negative KETONES UA (BEAKER) (test hsly=878) Negative Negative BILIRUBIN UA (BEAKER) (test dkml=537) Negative Negative BLOOD UA (BEAKER) (test vvmf=935) Small Negative NITRITE UA (BEAKER) (test edsy=393) Negative Negative LEUKOCYTE ESTERASE UA (BEAKER) (test oibj=972) Negative Negative UROBILINOGEN UA (BEAKER) (test yesa=408) 0.2 mg/dL 0.2-1.0 RBC UA (BEAKER) (test gtpa=722) 38 /HPF WBC UA (BEAKER) (test ytoi=789) 7 /HPF SQUAMOUS EPITHELIAL (BEAKER) (test ckpy=073) 18 /HPF AMORPHOUS CRYSTALS (BEAKER) (test huzk=2649) Rare SOURCE(BEAKER) (test circ=6611) OSMOLALITY, [id number] 14:40:00 Test Item Value Reference Range Comments OSMOLALITY URINE (BEAKER) (test yxcd=926) 284 mOsm/kg 40-1,400 [id number] 13:34:00 Test Item Value Reference Range Comments PROCALCITONIN (BEAKER) (test remz=7899) 0.25 ng/mL <0.05 SEPSIS RISK (ng/mL)Low: 0.05-0.50Intermediate: 0.51-2.00High: & gt;=2.01OSMOLALITY, [id number] 12:43:00 Test Item Value Reference Range Comments OSMOLALITY URINE (BEAKER) (test jlvd=657) 316 mOsm/kg 40-1,400 OSMOLALITY, [id number] 12:41:00 Test Item Value Reference Range Comments OSMOLALITY, SERUM (BEAKER) (test fitz=892) 259 mOsm/kg 275-295 TSH/FREE T4 IF [id number] 11:36:00 Test Item Value Reference Range Comments THYROID STIMULATING HORMONE (BEAKER) (test 2.55 uIU/mL 0.35-4.94 irot=955) [id number] 11:34:00 Test Item Value Reference Range Comments CORTISOL, TOTAL (BEAKER) (test jkih=3819) 7.9 ug/dL 3.7-19.4 SODIUM, RANDOM [id number] 11:34:00 Test Item Value Reference Range Comments SODIUM URINE (BEAKER) (test rypd=532) < meq/L Reference Range: No NormalsBASIC METABOLIC [id number] 11:24:00 Test Item Value Reference Range Comments SODIUM (BEAKER) (test 113 meq/L 136-145 oaed=573) POTASSIUM (BEAKER) (test 5.3 meq/L 3.5-5.1 xhsz=088) CHLORIDE (BEAKER) (test 86 meq/L 98-107 ohap=103) CO2 (BEAKER) (test 21 meq/L 22-29 eqvb=208) BLOOD UREA NITROGEN 39 mg/dL 7-21 (BEAKER) (test ucwz=179) CREATININE (BEAKER) (test 1.57 mg/dL 0.57-1.25 vzwt=016) GLUCOSE RANDOM (BEAKER) 64 mg/dL 70-105 (test mxjq=894) CALCIUM (BEAKER) (test 9.1 mg/dL 8.4-10.2 aqqk=930) EGFR (BEAKER) (test 46 mL/min/1.73 sq m ESTIMATED GFR IS NOT xwbf=1197) ACCURATE CREATININE CLEARANCE IN PREDICTING GLOMERULAR FILTRATION RATE. ESTIMATED GFR IS NOT APPLICABLE FOR DIALYSIS PATIENTS. Specimen slightly ictericURIC [id number] 11:21:00 Test Item Value Reference Range Comments URIC ACID (BEAKER) (test iuri=254) 8.2 mg/dL 2.6-7.2 Specimen slightly ictericCREATININE, RANDOM [id number] 11:21:00 Test Item Value Reference Range Comments CREATININE URINE (BEAKER) (test dtyg=257) 81.9 mg/dL Reference Range: No NormalsPOTASSIUM, RANDOM [id number] 11:21:00 Test Item Value Reference Range Comments POTASSIUM URINE (BEAKER) (test baju=288) 19.2 meq/L Reference Range: No NormalsCBC W/PLT COUNT & AUTO [id number] 10: 20:00 Test Item Value Reference Range Comments WHITE BLOOD CELL COUNT (BEAKER) (test zqyt=266) 10.9 K/ L 3.5-10.5 RED BLOOD CELL COUNT (BEAKER) (test allz=118) 2.46 M/ L 4.63-6.08 HEMOGLOBIN (BEAKER) (test mnbo=862) 7.9 GM/DL 13.7-17.5 HEMATOCRIT (BEAKER) (test apos=073) 22.2 % 40.1-51.0 MEAN CORPUSCULAR VOLUME (BEAKER) (test inlb=152) 90.2 fL 79.0-92.2 MEAN CORPUSCULAR HEMOGLOBIN (BEAKER) (test 32.1 pg 25.7-32.2 rgak=942) MEAN CORPUSCULAR HEMOGLOBIN CONC (BEAKER) (test 35.6 GM/DL 32.3-36.5 tkqn=073) RED CELL DISTRIBUTION WIDTH (BEAKER) (test 14.2 % 11.6-14.4 ykvl=363) PLATELET COUNT (BEAKER) (test fzci=469) 82 K/CU MM 150-450 MEAN PLATELET VOLUME (BEAKER) (test kqzh=952) 8.3 fL 9.4-12.4 NUCLEATED RED BLOOD CELLS (BEAKER) (test 0 /100 WBC 0-0 voij=460) (CELLAVISION MANUAL DIFF)[id number] 10:20:00 Test Item Value Reference Range Comments NEUTROPHILS - REL (CELLAVISION)(BEAKER) (test 80 % nrwr=7866) LYMPHOCYTES - REL (CELLAVISION)(BEAKER) (test 2 % fddg=7195) MONOCYTES - REL (CELLAVISION)(BEAKER) (test 6 % psww=0136) BANDS - REL (CELLAVISION)(BEAKER) (test 12 % 0-10 yijx=6364) NEUTROPHILS - ABS (CELLAVISION)(BEAKER) (test 8.72 K/ul 1.78-5.38 drdr=2651) LYMPHOCYTES - ABS (CELLAVISION)(BEAKER) (test 0.22 K/ul 1.32-3.57 ftrg=3444) MONOCYTES - ABS (CELLAVISION)(BEAKER) (test 0.65 K/uL 0.30-0.82 vckc=0165) BANDS - ABS (CELLAVISION)(BEAKER) (test 1.31 K/uL 0.00-0.80 zpgr=7322) TOTAL COUNTED (BEAKER) (test yxtj=2443) 100 WBC MORPHOLOGY (BEAKER) (test hrov=907) Normal PLT MORPHOLOGY (BEAKER) (test mtys=823) Normal POLYCHROMATOPHILLIC RBCS(BEAKER) (test imdg=285) 2+ moderate ANISOCYTOSIS (BEAKER) (test xqdx=246) 2+ moderate POIKILOCYTES (BEAKER) (test ouyh=322) 2+ moderate ARTIFACT (CELLAVISION)(BEAKER) (test lvgb=9227) Present PLATELET CONCENTRATION (CELLAVISION)(BEAKER) Decreased (test rzqo=6583) Received comment: User comments: Slide comments:COMPREHENSIVE METABOLIC [id number] 09:30:00 Test Item Value Reference Range Comments TOTAL PROTEIN (BEAKER) 5.2 gm/dL 6.0-8.3 (test pyer=950) ALBUMIN (BEAKER) (test 3.0 g/dL 3.5-5.0 bkym=3542) ALKALINE PHOSPHATASE 158 U/L 40-150 (BEAKER) (test gahr=103) BILIRUBIN TOTAL (BEAKER) 2.9 mg/dL 0.2-1.2 (test yntm=682) SODIUM (BEAKER) (test 111 meq/L 136-145 iogg=363) POTASSIUM (BEAKER) (test 5.5 meq/L 3.5-5.1 xvol=150) CHLORIDE (BEAKER) (test 87 meq/L 98-107 fmca=534) CO2 (BEAKER) (test 20 meq/L 22-29 pbeu=235) BLOOD UREA NITROGEN 39 mg/dL 7-21 (BEAKER) (test lura=844) CREATININE (BEAKER) (test 1.55 mg/dL 0.57-1.25 lqpj=578) GLUCOSE RANDOM (BEAKER) 79 mg/dL 70-105 (test bmok=986) CALCIUM (BEAKER) (test 9.0 mg/dL 8.4-10.2 kjco=997) AST (SGOT) (BEAKER) (test 27 U/L 5-34 gtoy=018) ALT (SGPT) (BEAKER) (test 9 U/L 6-55 gvmj=862) EGFR (BEAKER) (test 47 mL/min/1.73 sq m ESTIMATED GFR IS NOT ouhn=3094) ACCURATE CREATININE CLEARANCE IN PREDICTING GLOMERULAR FILTRATION RATE. ESTIMATED GFR IS NOT APPLICABLE FOR DIALYSIS PATIENTS. Specimen slightly ictericLACTIC ACID, VENOUS, WHOLE [id number] 09:15:00 Test Item Value Reference Range Comments LACTATE BLOOD VENOUS (2) (BEAKER) (test 0.9 mmol/L 0.5-2.2 wxks=4823) Effective 02/28/2016: Units/Reference Range ChangeNew: 0.5-2.2 mmol/L Previous: 5 -20 mg/dLSpecimen slightly [id number] 09:01:00 Test Item Value Reference Range Comments AMMONIA (BEAKER) (test hove=333) 83 mol/L 18-72 PT/[id number] 08:54:00 Test Item Value Reference Range Comments PROTIME (BEAKER) (test vakb=886) 21.4 seconds 11.7-14.7 INR (BEAKER) (test geuk=614) 1.9 <=5.9 PARTIAL THROMBOPLASTIN TIME (BEAKER) (test 44.2 seconds 22.5-36.0 yxhi=710) RECOMMENDED COUMADIN/WARFARIN INR THERAPY RANGESSTANDARD DOSE: 2.0 - 3.0 Includes: PROPHYLAXIS forvenous thrombosis, systemic embolization; TREATMENT for venous thrombosis and/or pulmonary embolus.HIGH RISK: Target INR is 2.5-3.5 for patients with mechanical heart valves.PROTHROMBIN TIME/[id number] 08:53: 00 Test Item Value Reference Range Comments PROTIME (BEAKER) (test dyxs=426) 21.4 seconds 11.7-14.7 INR (BEAKER) (test dbro=968) 1.9 <=5.9 RECOMMENDED COUMADIN/WARFARIN INR THERAPY RANGESSTANDARD DOSE: 2.0 - 3.0 Includes: PROPHYLAXIS forvenous thrombosis, systemic embolization; TREATMENT for venous thrombosis and/or pulmonary embolus.HIGH RISK: Target INR is 2.5-3.5 for patients with mechanical heart valves.COMPREHENSIVE METABOLIC [id number] 13:54:00 Test Item Value Reference Range Comments TOTAL PROTEIN (BEAKER) 6.2 gm/dL 6.0-8.3 (test wpar=148) ALBUMIN (BEAKER) (test 3.4 g/dL 3.5-5.0 xnvy=7252) ALKALINE PHOSPHATASE 190 U/L 40-150 (BEAKER) (test zgjx=208) BILIRUBIN TOTAL (BEAKER) 1.9 mg/dL 0.2-1.2 (test ntan=958) SODIUM (BEAKER) (test 125 meq/L 136-145 ybfp=515) POTASSIUM (BEAKER) (test 5.0 meq/L 3.5-5.1 ombu=305) CHLORIDE (BEAKER) (test 99 meq/L 98-107 fvmf=279) CO2 (BEAKER) (test 19 meq/L 22-29 llbu=378) BLOOD UREA NITROGEN 36 mg/dL 7-21 (BEAKER) (test nzdy=774) CREATININE (BEAKER) (test 1.65 mg/dL 0.57-1.25 zdtb=763) GLUCOSE RANDOM (BEAKER) 133 mg/dL 70-105 (test iqrj=418) CALCIUM (BEAKER) (test 9.5 mg/dL 8.4-10.2 nnyq=490) AST (SGOT) (BEAKER) (test 23 U/L 5-34 hwrt=563) ALT (SGPT) (BEAKER) (test 12 U/L 6-55 jouc=908) EGFR (BEAKER) (test 44 mL/min/1.73 sq m ESTIMATED GFR IS NOT qbhr=4721) ACCURATE CREATININE CLEARANCE IN PREDICTING GLOMERULAR FILTRATION RATE. ESTIMATED GFR IS NOT APPLICABLE FOR DIALYSIS PATIENTS. BILIRUBIN, [id number] 13:54:00 Test Item Value Reference Range Comments BILIRUBIN DIRECT (BEAKER) (test zilm=377) 1.4 mg/dL 0.1-0.5 CBC W/PLT COUNT & AUTO [id number] 13:50:00 Test Item Value Reference Range Comments WHITE BLOOD CELL COUNT (BEAKER) (test kndm=731) 6.8 K/ L 3.5-10.5 RED BLOOD CELL COUNT (BEAKER) (test yluy=980) 3.01 M/ L 4.63-6.08 HEMOGLOBIN (BEAKER) (test vyvf=371) 9.5 GM/DL 13.7-17.5 HEMATOCRIT (BEAKER) (test mdxq=500) 28.3 % 40.1-51.0 MEAN CORPUSCULAR VOLUME (BEAKER) (test prmn=566) 94.0 fL 79.0-92.2 MEAN CORPUSCULAR HEMOGLOBIN (BEAKER) (test 31.6 pg 25.7-32.2 wifh=944) MEAN CORPUSCULAR HEMOGLOBIN CONC (BEAKER) (test 33.6 GM/DL 32.3-36.5 syoe=631) RED CELL DISTRIBUTION WIDTH (BEAKER) (test 14.5 % 11.6-14.4 inwr=821) PLATELET COUNT (BEAKER) (test divu=049) 131 K/CU MM 150-450 MEAN PLATELET VOLUME (BEAKER) (test puck=129) 9.0 fL 9.4-12.4 NUCLEATED RED BLOOD CELLS (BEAKER) (test 0 /100 WBC 0-0 vkud=605) NEUTROPHILS RELATIVE PERCENT (BEAKER) (test 75 % iywc=977) LYMPHOCYTES RELATIVE PERCENT (BEAKER) (test 7 % kkzw=474) MONOCYTES RELATIVE PERCENT (BEAKER) (test 14 % ihny=503) EOSINOPHILS RELATIVE PERCENT (BEAKER) (test 2 % dmeb=123) BASOPHILS RELATIVE PERCENT (BEAKER) (test 0 % sydy=133) NEUTROPHILS ABSOLUTE COUNT (BEAKER) (test 5.11 K/ L 1.78-5.38 qizl=829) LYMPHOCYTES ABSOLUTE COUNT (BEAKER) (test 0.50 K/ L 1.32-3.57 xkuk=185) MONOCYTES ABSOLUTE COUNT (BEAKER) (test 0.94 K/ L 0.30-0.82 vsig=973) EOSINOPHILS ABSOLUTE COUNT (BEAKER) (test 0.12 K/ L 0.04-0.54 kegc=864) BASOPHILS ABSOLUTE COUNT (BEAKER) (test 0.03 K/ L 0.01-0.08 xaig=326) IMMATURE GRANULOCYTES-RELATIVE PERCENT (BEAKER) 1 % 0-1 (test byph=6154) PROTHROMBIN [id number] 13:46:00 Test Item Value Reference Range Comments PROTIME (BEAKER) (test pwqs=379) 19.5 seconds 11.7-14.7 INR (BEAKER) (test ptkj=174) 1.7 <=5.9 RECOMMENDED COUMADIN/WARFARIN INR THERAPY RANGESSTANDARD DOSE: 2.0 - 3.0 Includes: PROPHYLAXIS forvenous thrombosis, systemic embolization; TREATMENT for venous thrombosis and/or pulmonary embolus.HIGH RISK: Target INR is 2.5-3.5 for patients with mechanical heart valves.BONE AND/OR JOINT IMAGING, WHOLE [id number] 16:45:00FINAL REPORT PROCEDURE: BONE SCAN, WHOLE BODY CPT CODE: [id number] INDICATION: L3 vertebral body lesion follow-up R91.1 [...] Verified Date/ Time: 08/05/2018 16:45:34 Reading Location: [address] Reading Room NIR, VERTEBROPLASTY THORACIC, [id number] 17:23:00Reason for exam:->T11, T12, L2 compression fracturesAddendum [...] Verified Date/Time: 06/04/2018 17:23:27 Reading Location : [address] Radiology Reading RoomAddendum EndsFINAL REPORT HISTORY: [...] Verified Date/Time: 06/03/2018 17:56:43 Reading Location : [place] [id number] Angio Body Reading Room ALPHA FETOPROTEIN (AFP), TUMOR [id number] 15:20:00 Test Item Value Reference Range Comments ALPHA-FETOPROTEIN (BEAKER) (test rfeb=6455) 2.2 ng/mL <10.0 COMPREHENSIVE METABOLIC [id number] 14:54:00 Test Item Value Reference Range Comments TOTAL PROTEIN (BEAKER) 6.5 gm/dL 6.0-8.3 (test vjty=907) ALBUMIN (BEAKER) (test 3.6 g/dL 3.5-5.0 dfcp=7193) ALKALINE PHOSPHATASE 342 U/L 40-150 (BEAKER) (test svve=288) BILIRUBIN TOTAL (BEAKER) 4.2 mg/dL 0.2-1.2 (test uazb=075) SODIUM (BEAKER) (test 128 meq/L 136-145 fhcc=893) POTASSIUM (BEAKER) (test 4.6 meq/L 3.5-5.1 fbog=966) CHLORIDE (BEAKER) (test 100 meq/L 98-107 vvvq=998) CO2 (BEAKER) (test 21 meq/L 22-29 ipxi=501) BLOOD UREA NITROGEN 21 mg/dL 7-21 (BEAKER) (test jmfr=642) CREATININE (BEAKER) (test 1.37 mg/dL 0.57-1.25 jldp=218) GLUCOSE RANDOM (BEAKER) 108 mg/dL 70-105 (test ebjp=858) CALCIUM (BEAKER) (test 9.5 mg/dL 8.4-10.2 xpsb=808) AST (SGOT) (BEAKER) (test 25 U/L 5-34 dimr=224) ALT (SGPT) (BEAKER) (test 10 U/L 6-55 kpok=169) EGFR (BEAKER) (test 54 mL/min/1.73 sq m ESTIMATED GFR IS NOT gmmx=7659) ACCURATE CREATININE CLEARANCE IN PREDICTING GLOMERULAR FILTRATION RATE. ESTIMATED GFR IS NOT APPLICABLE FOR DIALYSIS PATIENTS. Specimen slightly ictericBILIRUBIN, [id number] 14:54:00 Test Item Value Reference Range Comments BILIRUBIN DIRECT (BEAKER) (test xfrf=650) 2.1 mg/dL 0.1-0.5 CBC W/PLT COUNT & AUTO [id number] 14:52:00 Test Item Value Reference Range Comments WHITE BLOOD CELL COUNT (BEAKER) (test adcj=624) 3.9 K/ L 3.5-10.5 RED BLOOD CELL COUNT (BEAKER) (test erpa=128) 2.69 M/ L 4.63-6.08 HEMOGLOBIN (BEAKER) (test hriw=974) 9.1 GM/DL 13.7-17.5 HEMATOCRIT (BEAKER) (test vqya=100) 27.3 % 40.1-51.0 MEAN CORPUSCULAR VOLUME (BEAKER) (test gyjq=228) 101.5 fL 79.0-92.2 MEAN CORPUSCULAR HEMOGLOBIN (BEAKER) (test 33.8 pg 25.7-32.2 qkeu=587) MEAN CORPUSCULAR HEMOGLOBIN CONC (BEAKER) (test 33.3 GM/DL 32.3-36.5 gmiz=178) RED CELL DISTRIBUTION WIDTH (BEAKER) (test 18.6 % 11.6-14.4 efbp=464) PLATELET COUNT (BEAKER) (test iaxt=645) 71 K/CU MM 150-450 MEAN PLATELET VOLUME (BEAKER) (test lyyd=296) 9.6 fL 9.4-12.4 NUCLEATED RED BLOOD CELLS (BEAKER) (test 0 /100 WBC 0-0 gqne=979) NEUTROPHILS RELATIVE PERCENT (BEAKER) (test 62 % dehr=442) LYMPHOCYTES RELATIVE PERCENT (BEAKER) (test 16 % fngt=890) MONOCYTES RELATIVE PERCENT (BEAKER) (test 17 % aaxy=238) EOSINOPHILS RELATIVE PERCENT (BEAKER) (test 5 % piya=452) BASOPHILS RELATIVE PERCENT (BEAKER) (test 0 % dmyc=902) NEUTROPHILS ABSOLUTE COUNT (BEAKER) (test 2.41 K/ L 1.78-5.38 tppe=986) LYMPHOCYTES ABSOLUTE COUNT (BEAKER) (test 0.62 K/ L 1.32-3.57 papc=546) MONOCYTES ABSOLUTE COUNT (BEAKER) (test nvei=610) 0.65 K/ L 0.30-0.82 EOSINOPHILS ABSOLUTE COUNT (BEAKER) (test 0.20 K/ L 0.04-0.54 gksx=813) BASOPHILS ABSOLUTE COUNT (BEAKER) (test mfgx=547) 0.01 K/ L 0.01-0.08 IMMATURE GRANULOCYTES-RELATIVE PERCENT (BEAKER) 0 % 0-1 (test kxjq=6685) PROTHROMBIN [id number] 14:50:00 Test Item Value Reference Range Comments PROTIME (BEAKER) (test sfaq=958) 19.5 seconds 11.7-14.7 INR (BEAKER) (test ygiu=162) 1.7 <=5.9 RECOMMENDED COUMADIN/WARFARIN INR THERAPY RANGESSTANDARD DOSE: 2.0 - 3.0 Includes: PROPHYLAXIS forvenous thrombosis, systemic embolization; TREATMENT for venous thrombosis and/or pulmonary embolus.HIGH RISK: Target INR is 2.5-3.5 for patients with mechanical heart valves.BODY FLUID CULTURE + GRAM [id number] 13:19:00 Test Item Value Reference Range Comments CULTURE (BEAKER) (test flgg=2430) No growth GRAM STAIN RESULT (BEAKER) (test No WBCs kanq=4013) GRAM STAIN RESULT (BEAKER) (test No organisms seen uojm=14203) [id number] 17:36:00 Test Item Value Reference Range Comments SODIUM (BEAKER) (test ojxs=743) 133 meq/L 136-145 POTASSIUM (BEAKER) (test xfsl=396) 3.2 meq/L 3.5-5.1 CHLORIDE (BEAKER) (test nmbj=360) 102 meq/L 98-107 CO2 (BEAKER) (test ppvj=834) 21 meq/L 22-29 [id number] 13:21:00 Test Item Value Reference Range Comments SODIUM (BEAKER) (test wiau=485) 134 meq/L 136-145 POTASSIUM (BEAKER) (test wfgi=916) 3.0 meq/L 3.5-5.1 CHLORIDE (BEAKER) (test xaas=810) 103 meq/L 98-107 CO2 (BEAKER) (test otts=778) 22 meq/L 22-29 CALCIUM, [id number] 04:54:00 Test Item Value Reference Range Comments CALCIUM IONIZED (BEAKER) (test llyc=025) 1.09 mmol/L 1.12-1.27 PH, BLOOD (BEAKER) (test cahf=0572) 7.35 [id number] 04:04:00 Test Item Value Reference Range Comments PHOSPHORUS (BEAKER) (test tktk=827) 2.4 mg/dL 2.3-4.7 [id number] 04:04:00 Test Item Value Reference Range Comments MAGNESIUM (BEAKER) (test rcgd=899) 2.0 mg/dL 1.6-2.6 HEPATIC FUNCTION [id number] 04:04:00 Test Item Value Reference Range Comments TOTAL PROTEIN (BEAKER) (test odlc=134) 5.8 gm/dL 6.0-8.3 ALBUMIN (BEAKER) (test orux=8209) 4.1 g/dL 3.5-5.0 BILIRUBIN TOTAL (BEAKER) (test lwyt=761) 3.9 mg/dL 0.2-1.2 BILIRUBIN DIRECT (BEAKER) (test bizj=423) 2.0 mg/dL 0.1-0.5 ALKALINE PHOSPHATASE (BEAKER) (test cinw=243) 123 U/L 40-150 AST (SGOT) (BEAKER) (test rngd=426) 14 U/L 5-34 ALT (SGPT) (BEAKER) (test bzzr=714) < U/L 6-55 Specimen slightly ictericCOMPREHENSIVE METABOLIC [id number] 04:04:00 Test Item Value Reference Range Comments TOTAL PROTEIN (BEAKER) 5.8 gm/dL 6.0-8.3 (test bjvh=340) ALBUMIN (BEAKER) (test 4.1 g/dL 3.5-5.0 qdlu=4863) ALKALINE PHOSPHATASE 123 U/L 40-150 (BEAKER) (test sacu=047) BILIRUBIN TOTAL (BEAKER) 3.9 mg/dL 0.2-1.2 (test igwy=321) SODIUM (BEAKER) (test 135 meq/L 136-145 zxvv=926) POTASSIUM (BEAKER) (test 2.9 meq/L 3.5-5.1 fnsv=869) CHLORIDE (BEAKER) (test 103 meq/L 98-107 xjym=243) CO2 (BEAKER) (test 21 meq/L 22-29 gymk=508) BLOOD UREA NITROGEN 18 mg/dL 7-21 (BEAKER) (test zbxz=723) CREATININE (BEAKER) (test 1.32 mg/dL 0.57-1.25 apky=868) GLUCOSE RANDOM (BEAKER) 126 mg/dL 70-105 (test pcxf=719) CALCIUM (BEAKER) (test 9.8 mg/dL 8.4-10.2 zijc=504) AST (SGOT) (BEAKER) (test 14 U/L 5-34 irer=344) ALT (SGPT) (BEAKER) (test < U/L 6-55 eaco=534) EGFR (BEAKER) (test 57 mL/min/1.73 sq m ESTIMATED GFR IS NOT fhta=6295) ACCURATE CREATININE CLEARANCE IN PREDICTING GLOMERULAR FILTRATION RATE. ESTIMATED GFR IS NOT APPLICABLE FOR DIALYSIS PATIENTS. Specimen slightly ictericPROTHROMBIN [id number] 04:02:00 Test Item Value Reference Range Comments PROTIME (BEAKER) (test tyvs=554) 25.1 seconds 11.7-14.7 INR (BEAKER) (test kqpj=982) 2.3 <=5.9 RECOMMENDED COUMADIN/WARFARIN INR THERAPY RANGESSTANDARD DOSE: 2.0 - 3.0 Includes: PROPHYLAXIS forvenous thrombosis, systemic embolization; TREATMENT for venous thrombosis and/or pulmonary embolus.HIGH RISK: Target INR is 2.5-3.5 for patients with mechanical heart valves.CBC W/PLT COUNT & AUTO [id number] 03:55:00 Test Item Value Reference Range Comments WHITE BLOOD CELL COUNT (BEAKER) (test nzck=796) 3.6 K/ L 3.5-10.5 RED BLOOD CELL COUNT (BEAKER) (test kyoh=565) 2.48 M/ L 4.63-6.08 HEMOGLOBIN (BEAKER) (test hxfd=565) 7.9 GM/DL 13.7-17.5 HEMATOCRIT (BEAKER) (test hhfo=930) 23.7 % 40.1-51.0 MEAN CORPUSCULAR VOLUME (BEAKER) (test dzcw=622) 95.6 fL 79.0-92.2 MEAN CORPUSCULAR HEMOGLOBIN (BEAKER) (test 31.9 pg 25.7-32.2 psfe=457) MEAN CORPUSCULAR HEMOGLOBIN CONC (BEAKER) (test 33.3 GM/DL 32.3-36.5 dwnp=654) RED CELL DISTRIBUTION WIDTH (BEAKER) (test 18.8 % 11.6-14.4 oulj=893) PLATELET COUNT (BEAKER) (test epmc=125) 38 K/CU MM 150-450 MEAN PLATELET VOLUME (BEAKER) (test kawd=225) 9.3 fL 9.4-12.4 NUCLEATED RED BLOOD CELLS (BEAKER) (test 0 /100 WBC 0-0 jfec=093) NEUTROPHILS RELATIVE PERCENT (BEAKER) (test 57 % basy=591) LYMPHOCYTES RELATIVE PERCENT (BEAKER) (test 15 % fpka=775) MONOCYTES RELATIVE PERCENT (BEAKER) (test 22 % pdxl=622) EOSINOPHILS RELATIVE PERCENT (BEAKER) (test 4 % mpxi=476) BASOPHILS RELATIVE PERCENT (BEAKER) (test 0 % sknf=198) NEUTROPHILS ABSOLUTE COUNT (BEAKER) (test 2.09 K/ L 1.78-5.38 zans=987) LYMPHOCYTES ABSOLUTE COUNT (BEAKER) (test 0.54 K/ L 1.32-3.57 ubcu=988) MONOCYTES ABSOLUTE COUNT (BEAKER) (test hswd=874) 0.81 K/ L 0.30-0.82 EOSINOPHILS ABSOLUTE COUNT (BEAKER) (test 0.15 K/ L 0.04-0.54 pnal=265) BASOPHILS ABSOLUTE COUNT (BEAKER) (test jrmt=655) 0.01 K/ L 0.01-0.08 IMMATURE GRANULOCYTES-RELATIVE PERCENT (BEAKER) 1 % 0-1 (test tahf=5402) [id number] 18:07:00 Test Item Value Reference Range Comments SODIUM (BEAKER) (test cjaf=087) 132 meq/L 136-145 POTASSIUM (BEAKER) (test 2.9 meq/L 3.5-5.1 Specimen slightly hemolyzed mhsf=314) CHLORIDE (BEAKER) (test 101 meq/L 98-107 olgv=124) CO2 (BEAKER) (test nrtk=670) 18 meq/L 22-29 LACTIC ACID, VENOUS, WHOLE [id number] 16:43:00 Test Item Value Reference Range Comments LACTATE BLOOD VENOUS (2) 1.6 mmol/L 0.5-2.2 Specimen slightly hemolyzed (BEAKER) (test jblu=8771) Effective 02/28/2016: Units/Reference Range ChangeNew: 0.5-2.2 mmol/L Previous: 5 -20 mg/dLSpecimen slightly ictericBODY FLUID CULTURE + GRAM [id number] 12: 08:00 Test Item Value Reference Range Comments CULTURE (BEAKER) (test prkz=5508) No growth GRAM STAIN RESULT (BEAKER) (test <1+ WBCs tgpm=9391) GRAM STAIN RESULT (BEAKER) (test No organisms seen rzfo=74760) [id number] 08:10:00 Test Item Value Reference Range Comments PHOSPHORUS (BEAKER) (test pivd=167) 2.8 mg/dL 2.3-4.7 [id number] 08:10:00 Test Item Value Reference Range Comments MAGNESIUM (BEAKER) (test wmwd=661) 2.2 mg/dL 1.6-2.6 COMPREHENSIVE METABOLIC [id number] 08:10:00 Test Item Value Reference Range Comments TOTAL PROTEIN (BEAKER) 6.2 gm/dL 6.0-8.3 (test wrqo=382) ALBUMIN (BEAKER) (test 4.4 g/dL 3.5-5.0 tnyq=0826) ALKALINE PHOSPHATASE 121 U/L 40-150 (BEAKER) (test uxiz=374) BILIRUBIN TOTAL (BEAKER) 4.4 mg/dL 0.2-1.2 (test male=445) SODIUM (BEAKER) (test 135 meq/L 136-145 enyx=138) POTASSIUM (BEAKER) (test 2.8 meq/L 3.5-5.1 ikwx=370) CHLORIDE (BEAKER) (test 102 meq/L 98-107 rdrj=060) CO2 (BEAKER) (test 21 meq/L 22-29 yyzn=625) BLOOD UREA NITROGEN 20 mg/dL 7-21 (BEAKER) (test wrxh=337) CREATININE (BEAKER) (test 1.34 mg/dL 0.57-1.25 jvlz=889) GLUCOSE RANDOM (BEAKER) 132 mg/dL 70-105 (test gkwy=348) CALCIUM (BEAKER) (test 10.0 mg/dL 8.4-10.2 hwxl=415) AST (SGOT) (BEAKER) (test 16 U/L 5-34 lqem=358) ALT (SGPT) (BEAKER) (test 6 U/L 6-55 jkef=311) EGFR (BEAKER) (test 56 mL/min/1.73 sq m ESTIMATED GFR IS NOT llqg=9462) ACCURATE CREATININE CLEARANCE IN PREDICTING GLOMERULAR FILTRATION RATE. ESTIMATED GFR IS NOT APPLICABLE FOR DIALYSIS PATIENTS. Specimen slightly ictericHEPATIC FUNCTION [id number] 08:10:00 Test Item Value Reference Range Comments TOTAL PROTEIN (BEAKER) (test epod=318) 6.2 gm/dL 6.0-8.3 ALBUMIN (BEAKER) (test nste=1259) 4.4 g/dL 3.5-5.0 BILIRUBIN TOTAL (BEAKER) (test iygz=953) 4.4 mg/dL 0.2-1.2 BILIRUBIN DIRECT (BEAKER) (test ukef=653) 1.9 mg/dL 0.1-0.5 ALKALINE PHOSPHATASE (BEAKER) (test xnch=843) 121 U/L 40-150 AST (SGOT) (BEAKER) (test bohe=160) 16 U/L 5-34 ALT (SGPT) (BEAKER) (test zdmd=365) 6 U/L 6-55 Specimen slightly ictericCALCIUM, [id number] 07:20:00 Test Item Value Reference Range Comments CALCIUM IONIZED (BEAKER) (test fbfo=140) 1.01 mmol/L 1.12-1.27 PH, BLOOD (BEAKER) (test ctju=8014) 7.49 CBC W/PLT COUNT & AUTO [id number] 06:59:00 Test Item Value Reference Range Comments WHITE BLOOD CELL COUNT (BEAKER) (test bxda=014) 4.1 K/ L 3.5-10.5 RED BLOOD CELL COUNT (BEAKER) (test qrmo=536) 2.62 M/ L 4.63-6.08 HEMOGLOBIN (BEAKER) (test uzev=645) 8.2 GM/DL 13.7-17.5 HEMATOCRIT (BEAKER) (test lbtf=114) 24.9 % 40.1-51.0 MEAN CORPUSCULAR VOLUME (BEAKER) (test pxhg=761) 95.0 fL 79.0-92.2 MEAN CORPUSCULAR HEMOGLOBIN (BEAKER) (test 31.3 pg 25.7-32.2 odzj=501) MEAN CORPUSCULAR HEMOGLOBIN CONC (BEAKER) (test 32.9 GM/DL 32.3-36.5 vzvw=560) RED CELL DISTRIBUTION WIDTH (BEAKER) (test 18.6 % 11.6-14.4 nyve=048) PLATELET COUNT (BEAKER) (test zfkw=007) 38 K/CU MM 150-450 MEAN PLATELET VOLUME (BEAKER) (test gfjq=186) 9.3 fL 9.4-12.4 NUCLEATED RED BLOOD CELLS (BEAKER) (test 0 /100 WBC 0-0 tjas=953) NEUTROPHILS RELATIVE PERCENT (BEAKER) (test 66 % cdgl=360) LYMPHOCYTES RELATIVE PERCENT (BEAKER) (test 12 % qiwp=180) MONOCYTES RELATIVE PERCENT (BEAKER) (test 18 % moza=282) EOSINOPHILS RELATIVE PERCENT (BEAKER) (test 3 % jkef=219) BASOPHILS RELATIVE PERCENT (BEAKER) (test 1 % qomw=442) NEUTROPHILS ABSOLUTE COUNT (BEAKER) (test 2.74 K/ L 1.78-5.38 owxz=561) LYMPHOCYTES ABSOLUTE COUNT (BEAKER) (test 0.49 K/ L 1.32-3.57 fwar=274) MONOCYTES ABSOLUTE COUNT (BEAKER) (test qqgx=951) 0.75 K/ L 0.30-0.82 EOSINOPHILS ABSOLUTE COUNT (BEAKER) (test 0.11 K/ L 0.04-0.54 natw=397) BASOPHILS ABSOLUTE COUNT (BEAKER) (test pqvv=814) 0.02 K/ L 0.01-0.08 IMMATURE GRANULOCYTES-RELATIVE PERCENT (BEAKER) 1 % 0-1 (test drsn=7538) PROTHROMBIN [id number] 06:56:00 Test Item Value Reference Range Comments PROTIME (BEAKER) (test bkfb=712) 24.5 seconds 11.7-14.7 INR (BEAKER) (test kypp=941) 2.2 <=5.9 RECOMMENDED COUMADIN/WARFARIN INR THERAPY RANGESSTANDARD DOSE: 2.0 - 3.0 Includes: PROPHYLAXIS forvenous thrombosis, systemic embolization; TREATMENT for venous thrombosis and/or pulmonary embolus.HIGH RISK: Target INR is 2.5-3.5 for patients with mechanical heart valves.BODY FLUID CELL COUNT WITH [id number] 18:36:00 Test Item Value Reference Range Comments APPEARANCE FLUID (BEAKER) (test qzuz=988) Hazy Clear COLOR FLUID (BEAKER) (test vrmh=937) Yellow Colorless, Straw RBC FLUID (BEAKER) (test vvio=694) 2000 /cu mm <=1 ADJUSTED WBC FLUID (BEAKER) (test zrim=9283) 96 /cu mm <=5 LINING CELLS (BEAKER) (test qcti=0826) 2 /cu mm <=1 NEUTROPHILS FLUID (BEAKER) (test jfad=9764) 4 % LYMPHS FLUID (BEAKER) (test mmbu=071) 11 % MONO/MACROPHAGE FLUID (BEAKER) (test urjn=718) 85 % EOSINOPHILS FLUID (BEAKER) (test alcj=537) 0 % BASO FLUID (BEAKER) (test oliu=608) 0 % CONTAINER BODY FLUID (BEAKER) (test ayoa=7565) EDTA Tube U/S, [id number] 12:49:00Limit to 4L due to AKIReason for exam:-> ascitesFINAL REPORT Indication: Ascites. Technique: Ultrasound guided paracentesis. Findings:Preliminary ultrasound confirms ascites. A safe window was identified in the midline (suprapubic). The procedure was explained to the patient and informed consent was signed. The skin was marked and prepped in standard sterile fashion. 2% lidocaine was used for local anesthesia. A 5 Anguillan needle catheter system was advanced into the peritoneal space. 3300 cc clear yellow fluid was taken off.Sample of the fluid was sent to the laboratory. Patient tolerated the procedure well. Impression: Ultrasound guided paracentesis. Signed: Aristeo Xiong MDReport Verified Date/ Time: 05/13/2018 12:49:12 Reading Location: [facility] [id number] Ultrasound Reading Room 12: 49 PMCALCIUM, [id number] 05:29:00 Test Item Value Reference Range Comments CALCIUM IONIZED (BEAKER) (test jnhr=668) 1.10 mmol/L 1.12-1.27 PH, BLOOD (BEAKER) (test jedh=0206) 7.35 B-TYPE NATRIURETIC FACTOR (BNP)2018-05-13 04:48:00 Test Item Value Reference Range Comments B-TYPE NATRIURETIC PEPTIDE (BEAKER) (test 274 pg/mL 0-100 sesk=419) [id number] 04:44:00 Test Item Value Reference Range Comments PHOSPHORUS (BEAKER) (test kavf=305) 3.0 mg/dL 2.3-4.7 [id number] 04:44:00 Test Item Value Reference Range Comments MAGNESIUM (BEAKER) (test joku=933) 2.0 mg/dL 1.6-2.6 COMPREHENSIVE METABOLIC [id number] 04:44:00 Test Item Value Reference Range Comments TOTAL PROTEIN (BEAKER) 6.2 gm/dL 6.0-8.3 (test zsqz=041) ALBUMIN (BEAKER) (test 4.3 g/dL 3.5-5.0 zemn=1102) ALKALINE PHOSPHATASE 134 U/L 40-150 (BEAKER) (test flyz=033) BILIRUBIN TOTAL (BEAKER) 4.4 mg/dL 0.2-1.2 (test npjv=165) SODIUM (BEAKER) (test 131 meq/L 136-145 jipx=301) POTASSIUM (BEAKER) (test 3.7 meq/L 3.5-5.1 dpfm=134) CHLORIDE (BEAKER) (test 96 meq/L 98-107 qayf=750) CO2 (BEAKER) (test 26 meq/L 22-29 suky=531) BLOOD UREA NITROGEN 20 mg/dL 7-21 (BEAKER) (test zheu=905) CREATININE (BEAKER) (test 1.60 mg/dL 0.57-1.25 jrmz=698) GLUCOSE RANDOM (BEAKER) 149 mg/dL 70-105 (test bdge=966) CALCIUM (BEAKER) (test 10.0 mg/dL 8.4-10.2 sibv=439) AST (SGOT) (BEAKER) (test 18 U/L 5-34 zmxp=494) ALT (SGPT) (BEAKER) (test 7 U/L 6-55 xvti=519) EGFR (BEAKER) (test 46 mL/min/1.73 sq m ESTIMATED GFR IS NOT easb=7106) ACCURATE CREATININE CLEARANCE IN PREDICTING GLOMERULAR FILTRATION RATE. ESTIMATED GFR IS NOT APPLICABLE FOR DIALYSIS PATIENTS. Specimen slightly ictericHEPATIC FUNCTION [id number] 04:44:00 Test Item Value Reference Range Comments TOTAL PROTEIN (BEAKER) (test djrx=753) 6.2 gm/dL 6.0-8.3 ALBUMIN (BEAKER) (test qtii=3453) 4.3 g/dL 3.5-5.0 BILIRUBIN TOTAL (BEAKER) (test kgoq=047) 4.4 mg/dL 0.2-1.2 BILIRUBIN DIRECT (BEAKER) (test oijy=270) 2.4 mg/dL 0.1-0.5 ALKALINE PHOSPHATASE (BEAKER) (test kaso=740) 134 U/L 40-150 AST (SGOT) (BEAKER) (test zpzx=189) 18 U/L 5-34 ALT (SGPT) (BEAKER) (test gnaw=365) 7 U/L 6-55 Specimen slightly ictericPROTHROMBIN [id number] 04:30:00 Test Item Value Reference Range Comments PROTIME (BEAKER) (test onpo=811) 23.8 seconds 11.7-14.7 INR (BEAKER) (test wzvu=136) 2.1 <=5.9 RECOMMENDED COUMADIN/WARFARIN INR THERAPY RANGESSTANDARD DOSE: 2.0 - 3.0 Includes: PROPHYLAXIS forvenous thrombosis, systemic embolization; TREATMENT for venous thrombosis and/or pulmonary embolus.HIGH RISK: Target INR is 2.5-3.5 for patients with mechanical heart valves.CBC W/PLT COUNT & AUTO [id number] 04:19:00 Test Item Value Reference Range Comments WHITE BLOOD CELL COUNT (BEAKER) (test gabl=359) 4.0 K/ L 3.5-10.5 RED BLOOD CELL COUNT (BEAKER) (test nval=514) 2.60 M/ L 4.63-6.08 HEMOGLOBIN (BEAKER) (test mibk=663) 8.2 GM/DL 13.7-17.5 HEMATOCRIT (BEAKER) (test ajtk=552) 24.6 % 40.1-51.0 MEAN CORPUSCULAR VOLUME (BEAKER) (test daxn=529) 94.6 fL 79.0-92.2 MEAN CORPUSCULAR HEMOGLOBIN (BEAKER) (test 31.5 pg 25.7-32.2 cvkw=717) MEAN CORPUSCULAR HEMOGLOBIN CONC (BEAKER) (test 33.3 GM/DL 32.3-36.5 ogbp=239) RED CELL DISTRIBUTION WIDTH (BEAKER) (test 18.1 % 11.6-14.4 etbb=132) PLATELET COUNT (BEAKER) (test tppi=450) 46 K/CU MM 150-450 MEAN PLATELET VOLUME (BEAKER) (test ffhy=597) 9.1 fL 9.4-12.4 NUCLEATED RED BLOOD CELLS (BEAKER) (test 0 /100 WBC 0-0 ubfz=973) NEUTROPHILS RELATIVE PERCENT (BEAKER) (test 62 % vbfx=366) LYMPHOCYTES RELATIVE PERCENT (BEAKER) (test 13 % amsh=333) MONOCYTES RELATIVE PERCENT (BEAKER) (test 21 % kgmk=797) EOSINOPHILS RELATIVE PERCENT (BEAKER) (test 3 % lokj=673) BASOPHILS RELATIVE PERCENT (BEAKER) (test 0 % rtrm=532) NEUTROPHILS ABSOLUTE COUNT (BEAKER) (test 2.49 K/ L 1.78-5.38 rxlb=705) LYMPHOCYTES ABSOLUTE COUNT (BEAKER) (test 0.53 K/ L 1.32-3.57 uxyk=485) MONOCYTES ABSOLUTE COUNT (BEAKER) (test keut=382) 0.86 K/ L 0.30-0.82 EOSINOPHILS ABSOLUTE COUNT (BEAKER) (test 0.10 K/ L 0.04-0.54 zshp=229) BASOPHILS ABSOLUTE COUNT (BEAKER) (test oopr=942) 0.01 K/ L 0.01-0.08 IMMATURE GRANULOCYTES-RELATIVE PERCENT (BEAKER) 1 % 0-1 (test blhw=2358) TISSUE [id number] 14:55:00Surgical Pathology Report Case: [id number] Authorizing Provider: Karina Rain MD Collected: 05/08/20181999 Ordering Location: [address] Received: 05/11/2018 0837 Service Pathologist: Jesús Craig MD Specimen: Bone L3 VERTEBRAL BODYBONE BIOPSY:BONE AND BONE MARROW, NEGATIVE FOR MALIGNANCY.SEE DIAGNOSTIC COMMENT. Signing Pathologist Direct Phone Line: [phone] signed by Jesús Craig MD on 05/12/2018 [...] as thesampled material may not be fully customer operations representative. This case was discussed with Dr. Andrea Mason, net development manager.[id number], [id number] fracture of body thoracic vertebralL3 vertebral body [...] developed and its performance characteristics determined by [facility], Pathology Laboratory. It has not been cleared [...] clinical laboratory testing.RAD, CHEST, 1 VIEW, NON [id number] 13:56:00Reason for exam:->edemaShould this be performed at the bedside?->YesFINAL REPORT Chest one view compared to December 30 Discussion: Ill-defined bilateral airspace opacities are worse since the previous study although this may reflect a lesser inspiratory effort. No gross effusion or pneumothorax. Signed: Karina Pugh Verified Date/Time : 05/12/2018 13:56:44 Reading Location: [address] Consult Reading Room CALCIUM, [id number] 06:58:00 Test Item Value Reference Range Comments CALCIUM IONIZED (BEAKER) (test fsnj=228) 1.11 mmol/L 1.12-1.27 PH, BLOOD (BEAKER) (test ltao=3471) 7.36 [id number] 06:31:00 Test Item Value Reference Range Comments PHOSPHORUS (BEAKER) (test oiwx=087) 2.9 mg/dL 2.3-4.7 [id number] 06:31:00 Test Item Value Reference Range Comments MAGNESIUM (BEAKER) (test gujy=075) 1.9 mg/dL 1.6-2.6 COMPREHENSIVE METABOLIC [id number] 06:31:00 Test Item Value Reference Range Comments TOTAL PROTEIN (BEAKER) 5.8 gm/dL 6.0-8.3 (test ekcq=888) ALBUMIN (BEAKER) (test 4.0 g/dL 3.5-5.0 khyh=1934) ALKALINE PHOSPHATASE 124 U/L 40-150 (BEAKER) (test ugac=818) BILIRUBIN TOTAL (BEAKER) 4.3 mg/dL 0.2-1.2 (test gvtd=668) SODIUM (BEAKER) (test 128 meq/L 136-145 nfsl=450) POTASSIUM (BEAKER) (test 3.9 meq/L 3.5-5.1 mmms=707) CHLORIDE (BEAKER) (test 92 meq/L 98-107 assy=556) CO2 (BEAKER) (test 26 meq/L 22-29 szsl=240) BLOOD UREA NITROGEN 21 mg/dL 7-21 (BEAKER) (test ghbp=597) CREATININE (BEAKER) (test 1.54 mg/dL 0.57-1.25 rgdu=292) GLUCOSE RANDOM (BEAKER) 113 mg/dL 70-105 (test gcai=255) CALCIUM (BEAKER) (test 9.5 mg/dL 8.4-10.2 onsp=752) AST (SGOT) (BEAKER) (test 16 U/L 5-34 sdns=130) ALT (SGPT) (BEAKER) (test 6 U/L 6-55 wixi=133) EGFR (BEAKER) (test 48 mL/min/1.73 sq m ESTIMATED GFR IS NOT imql=9049) ACCURATE CREATININE CLEARANCE IN PREDICTING GLOMERULAR FILTRATION RATE. ESTIMATED GFR IS NOT APPLICABLE FOR DIALYSIS PATIENTS. Specimen slightly ictericHEPATIC FUNCTION [id number] 06:31:00 Test Item Value Reference Range Comments TOTAL PROTEIN (BEAKER) (test zzvp=203) 5.8 gm/dL 6.0-8.3 ALBUMIN (BEAKER) (test rrtr=4478) 4.0 g/dL 3.5-5.0 BILIRUBIN TOTAL (BEAKER) (test hysz=103) 4.3 mg/dL 0.2-1.2 BILIRUBIN DIRECT (BEAKER) (test yfng=033) 2.3 mg/dL 0.1-0.5 ALKALINE PHOSPHATASE (BEAKER) (test qjyi=722) 124 U/L 40-150 AST (SGOT) (BEAKER) (test iuuz=417) 16 U/L 5-34 ALT (SGPT) (BEAKER) (test jdea=520) 6 U/L 6-55 Specimen slightly ictericPROTHROMBIN [id number] 06:16:00 Test Item Value Reference Range Comments PROTIME (BEAKER) (test jvhz=725) 22.3 seconds 11.7-14.7 INR (BEAKER) (test cybm=770) 2.0 <=5.9 RECOMMENDED COUMADIN/WARFARIN INR THERAPY RANGESSTANDARD DOSE: 2.0 - 3.0 Includes: PROPHYLAXIS forvenous thrombosis, systemic embolization; TREATMENT for venous thrombosis and/or pulmonary embolus.HIGH RISK: Target INR is 2.5-3.5 for patients with mechanical heart valves.CBC W/PLT COUNT & AUTO [id number] 06:00:00 Test Item Value Reference Range Comments WHITE BLOOD CELL COUNT (BEAKER) (test fliv=603) 4.3 K/ L 3.5-10.5 RED BLOOD CELL COUNT (BEAKER) (test itea=707) 2.68 M/ L 4.63-6.08 HEMOGLOBIN (BEAKER) (test adcs=816) 8.3 GM/DL 13.7-17.5 HEMATOCRIT (BEAKER) (test yrwv=182) 25.0 % 40.1-51.0 MEAN CORPUSCULAR VOLUME (BEAKER) (test ezto=191) 93.3 fL 79.0-92.2 MEAN CORPUSCULAR HEMOGLOBIN (BEAKER) (test 31.0 pg 25.7-32.2 bavb=619) MEAN CORPUSCULAR HEMOGLOBIN CONC (BEAKER) (test 33.2 GM/DL 32.3-36.5 tifa=705) RED CELL DISTRIBUTION WIDTH (BEAKER) (test 17.4 % 11.6-14.4 pfvr=860) PLATELET COUNT (BEAKER) (test vvna=667) 57 K/CU MM 150-450 MEAN PLATELET VOLUME (BEAKER) (test wzmv=743) 9.3 fL 9.4-12.4 NUCLEATED RED BLOOD CELLS (BEAKER) (test 0 /100 WBC 0-0 jmni=517) NEUTROPHILS RELATIVE PERCENT (BEAKER) (test 61 % wigu=035) LYMPHOCYTES RELATIVE PERCENT (BEAKER) (test 14 % hila=390) MONOCYTES RELATIVE PERCENT (BEAKER) (test 17 % kpfh=607) EOSINOPHILS RELATIVE PERCENT (BEAKER) (test 7 % yzud=241) BASOPHILS RELATIVE PERCENT (BEAKER) (test 1 % qoso=216) NEUTROPHILS ABSOLUTE COUNT (BEAKER) (test 2.62 K/ L 1.78-5.38 pmxk=272) LYMPHOCYTES ABSOLUTE COUNT (BEAKER) (test 0.59 K/ L 1.32-3.57 buah=694) MONOCYTES ABSOLUTE COUNT (BEAKER) (test ummt=689) 0.73 K/ L 0.30-0.82 EOSINOPHILS ABSOLUTE COUNT (BEAKER) (test 0.29 K/ L 0.04-0.54 yvlu=708) BASOPHILS ABSOLUTE COUNT (BEAKER) (test jrtl=390) 0.02 K/ L 0.01-0.08 IMMATURE GRANULOCYTES-RELATIVE PERCENT (BEAKER) 1 % 0-1 (test acoe=5872) BLOOD [id number] 00:00:00 Test Item Value Reference Range Comments CULTURE (BEAKER) (test ecpl=4431) No growth in 5 days BLOOD [id number] 00:00:00 Test Item Value Reference Range Comments CULTURE (BEAKER) (test fabf=6419) No growth in 5 days OSMOLALITY, [id number] 18:16:00 Test Item Value Reference Range Comments OSMOLALITY URINE (BEAKER) (test xrst=835) 312 mOsm/kg 40-1400 BODY FLUID CELL COUNT WITH [id number] 17:17:00 Test Item Value Reference Range Comments APPEARANCE FLUID (BEAKER) (test qpgc=376) Clear Clear COLOR FLUID (BEAKER) (test nyqq=316) Yellow Colorless, Straw RBC FLUID (BEAKER) (test eyqy=027) 150 /cu mm <=1 ADJUSTED WBC FLUID (BEAKER) (test frhf=8857) 72 /cu mm <=5 LINING CELLS (BEAKER) (test mpfj=0713) 2 /cu mm <=1 NEUTROPHILS FLUID (BEAKER) (test fkdf=8161) 3 % LYMPHS FLUID (BEAKER) (test ucuu=362) 28 % MONO/MACROPHAGE FLUID (BEAKER) (test poxb=996) 68 % EOSINOPHILS FLUID (BEAKER) (test ixma=223) 1 % BASO FLUID (BEAKER) (test zujr=494) 0 % CONTAINER BODY FLUID (BEAKER) (test uihz=4793) EDTA Tube SODIUM, RANDOM [id number] 17:09:00 Test Item Value Reference Range Comments SODIUM URINE (BEAKER) (test lise=860) < meq/L Reference Range: No NormalsURINALYSIS W/ [id number] 17:08:00 Test Item Value Reference Range Comments COLOR (BEAKER) (test gyew=367) Yellow CLARITY (BEAKER) (test suba=503) Clear SPECIFIC GRAVITY UA (BEAKER) (test nivr=517) 1.012 1.001-1.035 PH UA (BEAKER) (test onuf=861) 5.5 5.0-8.0 PROTEIN UA (BEAKER) (test qwac=062) Negative Negative GLUCOSE UA (BEAKER) (test ecyl=272) Negative Negative KETONES UA (BEAKER) (test lftq=180) Negative Negative BILIRUBIN UA (BEAKER) (test rffk=455) Negative Negative BLOOD UA (BEAKER) (test oflz=176) Negative Negative NITRITE UA (BEAKER) (test xsdn=315) Negative Negative LEUKOCYTE ESTERASE UA (BEAKER) (test cujq=866) Negative Negative UROBILINOGEN UA (BEAKER) (test ftmg=918) 2.0 mg/dL 0.2-1.0 RBC UA (BEAKER) (test tglg=256) 0 /HPF WBC UA (BEAKER) (test glbh=453) 1 /HPF MUCUS (BEAKER) (test qivl=1937) Rare HYALINE CASTS (BEAKER) (test rptv=396) 15 /LPF SOURCE(BEAKER) (test ocxx=9309) CREATININE, RANDOM [id number] 17:05:00 Test Item Value Reference Range Comments CREATININE URINE ([place]) (test dxku=999) 116.1 mg/dL Reference Range: No NormalsPROTEIN, RANDOM [id number] 17:05:00 Test Item Value Reference Range Comments PROTEIN, URINE (BEAKER) (test tyxu=3191) 7 mg/dL 0-14 RAD, SPINE, THORACIC, 2 [id number] 13:53:00Reason for exam:->back pain, s/p kyphoplastyFINAL REPORT [...] Aristeo Xiong Verified Date/Time: 13:53:06 Reading Location: [facility] [employer] Reading Room RAD, SPINE, LUMBAR, 2 OR 3 [id number] 13:53:00Reason for exam:->back pain, s/p kyphoplastyFINAL REPORT [...] disc space is relatively maintained. Signed: Aristeo Xiongort Verified Date/Time: 13:53:06 Reading Location: [facility] [employer] Reading Room U/S, [id number] 12:52:00Limit to 4L due to AKIReason for exam:-> ascitesShould this be performed at the bedside?->NoFINAL REPORT Ultrasound guided paracentesis, 05/11/2018. Clinical History: Ascites. Sedation: None. Retail Personal Banker: Elle. Iron Erector: None. Estimated Blood Loss: < 1 cc. [...] was achieved with 1% lidocaine, a 5 [place]gu[place]an one-step catheter was advanced into the peritoneal cavity under ultrasound guidance. After completion of drainage, the catheter was removed. There was no evidence of complication. Patient Disposition: The patient was discharged from the ultrasound department after the paracentesis, in good condition. Impression: Successful ultrasound guided paracentesis. Signed: Elizabeth Almeidaort Verified Date/Time: 05/11/2018 12:52:57 Reading Location: [address] Ultrasound Reading Room MISCELLANEOUS LAB [id number] 10:45:00 Test Item Value Reference Range Comments SCAN RESULT (test xwvu=[id number]) [id number] 07:31:00 Test Item Value Reference Range Comments PHOSPHORUS (BEAKER) (test wqis=670) 2.7 mg/dL 2.3-4.7 [id number] 07:31:00 Test Item Value Reference Range Comments MAGNESIUM (BEAKER) (test mhbl=970) 1.8 mg/dL 1.6-2.6 COMPREHENSIVE METABOLIC [id number] 07:31:00 Test Item Value Reference Range Comments TOTAL PROTEIN (BEAKER) 5.5 gm/dL 6.0-8.3 (test wiws=630) ALBUMIN (BEAKER) (test 3.5 g/dL 3.5-5.0 gqyp=8949) ALKALINE PHOSPHATASE 118 U/L 40-150 (BEAKER) (test kxmi=363) BILIRUBIN TOTAL (BEAKER) 5.1 mg/dL 0.2-1.2 (test paiu=335) SODIUM (BEAKER) (test 123 meq/L 136-145 rgyw=476) POTASSIUM (BEAKER) (test 4.1 meq/L 3.5-5.1 vwhl=233) CHLORIDE (BEAKER) (test 91 meq/L 98-107 svoz=276) CO2 (BEAKER) (test 25 meq/L 22-29 pabr=803) BLOOD UREA NITROGEN 21 mg/dL 7-21 (BEAKER) (test alyk=232) CREATININE (BEAKER) (test 1.59 mg/dL 0.57-1.25 leek=389) GLUCOSE RANDOM (BEAKER) 121 mg/dL 70-105 (test iyvk=238) CALCIUM (BEAKER) (test 9.4 mg/dL 8.4-10.2 islo=386) AST (SGOT) (BEAKER) (test 17 U/L 5-34 xkjv=661) ALT (SGPT) (BEAKER) (test 8 U/L 6-55 ibgs=108) EGFR (BEAKER) (test 46 mL/min/1.73 sq m ESTIMATED GFR IS NOT nlkq=3277) ACCURATE CREATININE CLEARANCE IN PREDICTING GLOMERULAR FILTRATION RATE. ESTIMATED GFR IS NOT APPLICABLE FOR DIALYSIS PATIENTS. Specimen moderately ictericHEPATIC FUNCTION [id number] 07:31:00 Test Item Value Reference Range Comments TOTAL PROTEIN (BEAKER) (test ness=377) 5.5 gm/dL 6.0-8.3 ALBUMIN (BEAKER) (test wjmr=1425) 3.5 g/dL 3.5-5.0 BILIRUBIN TOTAL (BEAKER) (test aebx=061) 5.1 mg/dL 0.2-1.2 BILIRUBIN DIRECT (BEAKER) (test mfib=459) 2.3 mg/dL 0.1-0.5 ALKALINE PHOSPHATASE (BEAKER) (test hpiv=080) 118 U/L 40-150 AST (SGOT) (BEAKER) (test qvul=972) 17 U/L 5-34 ALT (SGPT) (BEAKER) (test yhwu=168) 8 U/L 6-55 Specimen moderately ictericPROTHROMBIN [id number] 07:17:00 Test Item Value Reference Range Comments PROTIME (BEAKER) (test pblr=513) 23.8 seconds 11.7-14.7 INR (BEAKER) (test kofr=974) 2.1 <=5.9 RECOMMENDED COUMADIN/WARFARIN INR THERAPY RANGESSTANDARD DOSE: 2.0 - 3.0 Includes: PROPHYLAXIS forvenous thrombosis, systemic embolization; TREATMENT for venous thrombosis and/or pulmonary embolus.HIGH RISK: Target INR is 2.5-3.5 for patients with mechanical heart valves.CBC W/PLT COUNT & AUTO [id number] 07:15:00 Test Item Value Reference Range Comments WHITE BLOOD CELL COUNT (BEAKER) (test iusy=284) 4.4 K/ L 3.5-10.5 RED BLOOD CELL COUNT (BEAKER) (test gqwl=633) 2.52 M/ L 4.63-6.08 HEMOGLOBIN (BEAKER) (test qpag=208) 7.9 GM/DL 13.7-17.5 HEMATOCRIT (BEAKER) (test gvzw=783) 23.7 % 40.1-51.0 MEAN CORPUSCULAR VOLUME (BEAKER) (test tacj=556) 94.0 fL 79.0-92.2 MEAN CORPUSCULAR HEMOGLOBIN (BEAKER) (test 31.3 pg 25.7-32.2 ixux=620) MEAN CORPUSCULAR HEMOGLOBIN CONC (BEAKER) (test 33.3 GM/DL 32.3-36.5 ozpz=093) RED CELL DISTRIBUTION WIDTH (BEAKER) (test 17.6 % 11.6-14.4 oqtq=705) PLATELET COUNT (BEAKER) (test truf=128) 52 K/CU MM 150-450 MEAN PLATELET VOLUME (BEAKER) (test mclj=460) 9.2 fL 9.4-12.4 NUCLEATED RED BLOOD CELLS (BEAKER) (test 0 /100 WBC 0-0 nwtt=180) NEUTROPHILS RELATIVE PERCENT (BEAKER) (test 62 % kxuh=820) LYMPHOCYTES RELATIVE PERCENT (BEAKER) (test 10 % nkpi=088) MONOCYTES RELATIVE PERCENT (BEAKER) (test 19 % zldk=323) EOSINOPHILS RELATIVE PERCENT (BEAKER) (test 8 % xszk=599) BASOPHILS RELATIVE PERCENT (BEAKER) (test 0 % xlpm=924) NEUTROPHILS ABSOLUTE COUNT (BEAKER) (test 2.72 K/ L 1.78-5.38 zucz=850) LYMPHOCYTES ABSOLUTE COUNT (BEAKER) (test 0.42 K/ L 1.32-3.57 rklh=550) MONOCYTES ABSOLUTE COUNT (BEAKER) (test jecj=326) 0.84 K/ L 0.30-0.82 EOSINOPHILS ABSOLUTE COUNT (BEAKER) (test 0.34 K/ L 0.04-0.54 ntve=221) BASOPHILS ABSOLUTE COUNT (BEAKER) (test yflm=225) 0.00 K/ L 0.01-0.08 IMMATURE GRANULOCYTES-RELATIVE PERCENT (BEAKER) 1 % 0-1 (test zrhj=5406) CALCIUM, [id number] 07:09:00 Test Item Value Reference Range Comments CALCIUM IONIZED (BEAKER) (test rmbv=594) 1.09 mmol/L 1.12-1.27 PH, BLOOD (BEAKER) (test ayhe=1714) 7.36 BASIC METABOLIC [id number] 17:49:00 Test Item Value Reference Range Comments SODIUM (BEAKER) (test 124 meq/L 136-145 hxru=268) POTASSIUM (BEAKER) (test 3.8 meq/L 3.5-5.1 pana=292) CHLORIDE (BEAKER) (test 91 meq/L 98-107 yccb=907) CO2 (BEAKER) (test 22 meq/L 22-29 uzht=534) BLOOD UREA NITROGEN 19 mg/dL 7-21 (BEAKER) (test oylh=405) CREATININE (BEAKER) (test 1.49 mg/dL 0.57-1.25 qbjy=252) GLUCOSE RANDOM (BEAKER) 105 mg/dL 70-105 (test bskc=150) CALCIUM (BEAKER) (test 9.3 mg/dL 8.4-10.2 svlw=615) EGFR (BEAKER) (test 50 mL/min/1.73 sq m ESTIMATED GFR IS NOT xfdy=5103) ACCURATE CREATININE CLEARANCE IN PREDICTING GLOMERULAR FILTRATION RATE. ESTIMATED GFR IS NOT APPLICABLE FOR DIALYSIS PATIENTS. Call [id number] slightly ictericCALCIUM, [id number] 06:59:00 Test Item Value Reference Range Comments CALCIUM IONIZED (BEAKER) (test yubb=361) 1.00 mmol/L 1.12-1.27 PH, BLOOD (BEAKER) (test bisa=4463) 7.47 [id number] 05:42:00 Test Item Value Reference Range Comments PHOSPHORUS (BEAKER) (test fckn=483) 2.7 mg/dL 2.3-4.7 [id number] 05:42:00 Test Item Value Reference Range Comments MAGNESIUM (BEAKER) (test hxrf=844) 1.7 mg/dL 1.6-2.6 HEPATIC FUNCTION [id number] 05:42:00 Test Item Value Reference Range Comments TOTAL PROTEIN (BEAKER) (test husv=465) 5.2 gm/dL 6.0-8.3 ALBUMIN (BEAKER) (test wgsg=3423) 3.5 g/dL 3.5-5.0 BILIRUBIN TOTAL (BEAKER) (test wpfo=993) 3.4 mg/dL 0.2-1.2 BILIRUBIN DIRECT (BEAKER) (test teri=006) 1.8 mg/dL 0.1-0.5 ALKALINE PHOSPHATASE (BEAKER) (test xhgb=133) 106 U/L 40-150 AST (SGOT) (BEAKER) (test xasl=241) 15 U/L 5-34 ALT (SGPT) (BEAKER) (test jprj=575) 7 U/L 6-55 Specimen slightly ictericPROTHROMBIN [id number] 05:22:00 Test Item Value Reference Range Comments PROTIME (BEAKER) (test qkfy=767) 22.6 seconds 11.7-14.7 INR (BEAKER) (test iahq=837) 2.0 <=5.9 RECOMMENDED COUMADIN/WARFARIN INR THERAPY RANGESSTANDARD DOSE: 2.0 - 3.0 Includes: PROPHYLAXIS forvenous thrombosis, systemic embolization; TREATMENT for venous thrombosis and/or pulmonary embolus.HIGH RISK: Target INR is 2.5-3.5 for patients with mechanical heart valves.CBC W/PLT COUNT & AUTO [id number] 05:10:00 Test Item Value Reference Range Comments WHITE BLOOD CELL COUNT (BEAKER) (test cnkp=100) 5.6 K/ L 3.5-10.5 RED BLOOD CELL COUNT (BEAKER) (test ofga=953) 2.09 M/ L 4.63-6.08 HEMOGLOBIN (BEAKER) (test hqmf=058) 6.5 GM/DL 13.7-17.5 HEMATOCRIT (BEAKER) (test cvdw=514) 19.8 % 40.1-51.0 MEAN CORPUSCULAR VOLUME (BEAKER) (test ftrs=073) 94.7 fL 79.0-92.2 MEAN CORPUSCULAR HEMOGLOBIN (BEAKER) (test 31.1 pg 25.7-32.2 lmjz=143) MEAN CORPUSCULAR HEMOGLOBIN CONC (BEAKER) (test 32.8 GM/DL 32.3-36.5 fonl=317) RED CELL DISTRIBUTION WIDTH (BEAKER) (test 17.3 % 11.6-14.4 khjp=079) PLATELET COUNT (BEAKER) (test dqns=773) 57 K/CU MM 150-450 MEAN PLATELET VOLUME (BEAKER) (test mzxj=659) 8.9 fL 9.4-12.4 NUCLEATED RED BLOOD CELLS (BEAKER) (test 0 /100 WBC 0-0 hkcx=915) NEUTROPHILS RELATIVE PERCENT (BEAKER) (test 71 % uzux=835) LYMPHOCYTES RELATIVE PERCENT (BEAKER) (test 9 % hola=680) MONOCYTES RELATIVE PERCENT (BEAKER) (test 16 % xrsd=535) EOSINOPHILS RELATIVE PERCENT (BEAKER) (test 3 % adue=363) BASOPHILS RELATIVE PERCENT (BEAKER) (test 0 % uvlm=939) NEUTROPHILS ABSOLUTE COUNT (BEAKER) (test 3.93 K/ L 1.78-5.38 eznt=662) LYMPHOCYTES ABSOLUTE COUNT (BEAKER) (test 0.52 K/ L 1.32-3.57 zwbr=861) MONOCYTES ABSOLUTE COUNT (BEAKER) (test nsvs=455) 0.87 K/ L 0.30-0.82 EOSINOPHILS ABSOLUTE COUNT (BEAKER) (test 0.19 K/ L 0.04-0.54 ywpy=717) BASOPHILS ABSOLUTE COUNT (BEAKER) (test qqid=241) 0.01 K/ L 0.01-0.08 IMMATURE GRANULOCYTES-RELATIVE PERCENT (BEAKER) 1 % 0-1 (test jbwo=2214) HEPATIC FUNCTION [id number] 11:05:00 Test Item Value Reference Range Comments TOTAL PROTEIN (BEAKER) (test otcc=125) 5.7 gm/dL 6.0-8.3 ALBUMIN (BEAKER) (test dtgo=2483) 3.9 g/dL 3.5-5.0 BILIRUBIN TOTAL (BEAKER) (test ykss=605) 4.9 mg/dL 0.2-1.2 BILIRUBIN DIRECT (BEAKER) (test fdko=587) 2.0 mg/dL 0.1-0.5 ALKALINE PHOSPHATASE (BEAKER) (test yrki=558) 98 U/L 40-150 AST (SGOT) (BEAKER) (test oaqy=910) 19 U/L 5-34 ALT (SGPT) (BEAKER) (test fkgc=020) 8 U/L 6-55 Specimen moderately ictericBASIC METABOLIC [id number] 10:06:00 Test Item Value Reference Range Comments SODIUM (BEAKER) (test 132 meq/L 136-145 xxny=552) POTASSIUM (BEAKER) (test 5.0 meq/L 3.5-5.1 zmvg=335) CHLORIDE (BEAKER) (test 97 meq/L 98-107 bkjn=641) CO2 (BEAKER) (test 25 meq/L 22-29 ptqt=473) BLOOD UREA NITROGEN 17 mg/dL 7-21 (BEAKER) (test qzmj=660) CREATININE (BEAKER) (test 1.33 mg/dL 0.57-1.25 lwwf=121) GLUCOSE RANDOM (BEAKER) 181 mg/dL 70-105 (test csmz=880) CALCIUM (BEAKER) (test 9.4 mg/dL 8.4-10.2 boen=825) EGFR (BEAKER) (test 56 mL/min/1.73 sq m ESTIMATED GFR IS NOT tftu=4000) ACCURATE CREATININE CLEARANCE IN PREDICTING GLOMERULAR FILTRATION RATE. ESTIMATED GFR IS NOT APPLICABLE FOR DIALYSIS PATIENTS. Specimen moderately ictericCBC W/PLT COUNT & AUTO [id number] 07: 45:00 Test Item Value Reference Range Comments WHITE BLOOD CELL COUNT (BEAKER) (test hmcl=447) 3.4 K/ L 3.5-10.5 RED BLOOD CELL COUNT (BEAKER) (test xcqt=039) 2.26 M/ L 4.63-6.08 HEMOGLOBIN (BEAKER) (test vskg=990) 7.0 GM/DL 13.7-17.5 HEMATOCRIT (BEAKER) (test mbsg=223) 21.6 % 40.1-51.0 MEAN CORPUSCULAR VOLUME (BEAKER) (test ldup=517) 95.6 fL 79.0-92.2 MEAN CORPUSCULAR HEMOGLOBIN (BEAKER) (test 31.0 pg 25.7-32.2 prmn=304) MEAN CORPUSCULAR HEMOGLOBIN CONC (BEAKER) (test 32.4 GM/DL 32.3-36.5 bdis=219) RED CELL DISTRIBUTION WIDTH (BEAKER) (test 17.3 % 11.6-14.4 mmlt=477) PLATELET COUNT (BEAKER) (test atmx=920) 66 K/CU MM 150-450 MEAN PLATELET VOLUME (BEAKER) (test awhp=876) 9.8 fL 9.4-12.4 NUCLEATED RED BLOOD CELLS (BEAKER) (test 0 /100 WBC 0-0 hoic=890) NEUTROPHILS RELATIVE PERCENT (BEAKER) (test 87 % pncm=860) LYMPHOCYTES RELATIVE PERCENT (BEAKER) (test 7 % odjz=792) MONOCYTES RELATIVE PERCENT (BEAKER) (test 5 % hegr=634) EOSINOPHILS RELATIVE PERCENT (BEAKER) (test 0 % gqbp=494) BASOPHILS RELATIVE PERCENT (BEAKER) (test 0 % cnsz=674) NEUTROPHILS ABSOLUTE COUNT (BEAKER) (test 2.94 K/ L 1.78-5.38 tsjl=297) LYMPHOCYTES ABSOLUTE COUNT (BEAKER) (test 0.23 K/ L 1.32-3.57 gmed=508) MONOCYTES ABSOLUTE COUNT (BEAKER) (test wycw=639) 0.17 K/ L 0.30-0.82 EOSINOPHILS ABSOLUTE COUNT (BEAKER) (test 0.00 K/ L 0.04-0.54 osue=248) BASOPHILS ABSOLUTE COUNT (BEAKER) (test dnwt=297) 0.00 K/ L 0.01-0.08 IMMATURE GRANULOCYTES-RELATIVE PERCENT (BEAKER) 1 % 0-1 (test honz=2255) PROTHROMBIN [id number] 06:06:00 Test Item Value Reference Range Comments PROTIME (BEAKER) (test shaq=020) 19.1 seconds 11.7-14.7 INR (BEAKER) (test twlp=056) 1.6 <=5.9 RECOMMENDED COUMADIN/WARFARIN INR THERAPY RANGESSTANDARD DOSE: 2.0 - 3.0 Includes: PROPHYLAXIS forvenous thrombosis, systemic embolization; TREATMENT for venous thrombosis and/or pulmonary embolus.HIGH RISK: Target INR is 2.5-3.5 for patients with mechanical heart valves.[id number] 15:35:00 Test Item Value Reference Range Comments PROTIME (BEAKER) (test mbtr=986) 20.3 seconds 11.7-14.7 INR (BEAKER) (test mgag=622) 1.7 <=5.9 PARTIAL THROMBOPLASTIN TIME (BEAKER) (test 46.2 seconds 22.5-36.0 fcgb=836) RECOMMENDED COUMADIN/WARFARIN INR THERAPY RANGESSTANDARD DOSE: 2.0 - 3.0 Includes: PROPHYLAXIS forvenous thrombosis, systemic embolization; TREATMENT for venous thrombosis and/or pulmonary embolus.HIGH RISK: Target INR is 2.5-3.5 for patients with mechanical heart valves.30 minutes after administration of Zyhpajn83 minutes after administration of KcentraPROTHROMBIN TIME/[id number] 15:33:00 Test Item Value Reference Range Comments PROTIME (BEAKER) (test sdod=249) 20.1 seconds 11.7-14.7 INR (BEAKER) (test rboz=088) 1.7 <=5.9 RECOMMENDED COUMADIN/WARFARIN INR THERAPY RANGESSTANDARD DOSE: 2.0 - 3.0 Includes: PROPHYLAXIS forvenous thrombosis, systemic embolization; TREATMENT for venous thrombosis and/or pulmonary embolus.HIGH RISK: Target INR is 2.5-3.5 for patients with mechanical heart valves.Please draw 30 mins after Kcentra doseBODY FLUID CULTURE + GRAM [id number] 11:29:00 Test Item Value Reference Range Comments CULTURE (BEAKER) (test qooo=5323) No growth GRAM STAIN RESULT (BEAKER) (test <1+ WBCs rxzg=1252) GRAM STAIN RESULT (BEAKER) (test No organisms seen ideh=00643) CT, [id number] 10:30:00FINAL REPORT HISTORY : r/o intra abdominal [...] MDReport Verified Date/Time: 05/08/2018 10:30:57 Reading Location: [facility] Diagnostic Imaging Reading Room - [place] [id number] CBC W/PLT COUNT & AUTO [id number] 07:27:00 Test Item Value Reference Range Comments WHITE BLOOD CELL COUNT (BEAKER) (test puml=081) 3.1 K/ L 3.5-10.5 RED BLOOD CELL COUNT (BEAKER) (test rkku=797) 2.27 M/ L 4.63-6.08 HEMOGLOBIN (BEAKER) (test dzxu=036) 7.1 GM/DL 13.7-17.5 HEMATOCRIT (BEAKER) (test btbz=413) 21.4 % 40.1-51.0 MEAN CORPUSCULAR VOLUME (BEAKER) (test bbvr=599) 94.3 fL 79.0-92.2 MEAN CORPUSCULAR HEMOGLOBIN (BEAKER) (test 31.3 pg 25.7-32.2 hwsr=649) MEAN CORPUSCULAR HEMOGLOBIN CONC (BEAKER) (test 33.2 GM/DL 32.3-36.5 gvqv=058) RED CELL DISTRIBUTION WIDTH (BEAKER) (test 17.5 % 11.6-14.4 jyug=837) PLATELET COUNT (BEAKER) (test yphm=736) 43 K/CU MM 150-450 MEAN PLATELET VOLUME (BEAKER) (test fqem=566) 8.7 fL 9.4-12.4 NUCLEATED RED BLOOD CELLS (BEAKER) (test 0 /100 WBC 0-0 yklb=283) NEUTROPHILS RELATIVE PERCENT (BEAKER) (test 60 % ukby=584) LYMPHOCYTES RELATIVE PERCENT (BEAKER) (test 16 % jxyp=561) MONOCYTES RELATIVE PERCENT (BEAKER) (test 17 % hghi=082) EOSINOPHILS RELATIVE PERCENT (BEAKER) (test 7 % wtba=215) BASOPHILS RELATIVE PERCENT (BEAKER) (test 0 % gufo=155) NEUTROPHILS ABSOLUTE COUNT (BEAKER) (test 1.85 K/ L 1.78-5.38 qmig=108) LYMPHOCYTES ABSOLUTE COUNT (BEAKER) (test 0.48 K/ L 1.32-3.57 bxwb=367) MONOCYTES ABSOLUTE COUNT (BEAKER) (test nqke=499) 0.54 K/ L 0.30-0.82 EOSINOPHILS ABSOLUTE COUNT (BEAKER) (test 0.22 K/ L 0.04-0.54 xqsy=816) BASOPHILS ABSOLUTE COUNT (BEAKER) (test wepd=783) 0.00 K/ L 0.01-0.08 IMMATURE GRANULOCYTES-RELATIVE PERCENT (BEAKER) 0 % 0-1 (test mkyl=8773) CBC W/PLT COUNT & AUTO [id number] 07:26:00 Test Item Value Reference Range Comments WHITE BLOOD CELL COUNT (BEAKER) (test hyuh=598) 2.9 K/ L 3.5-10.5 RED BLOOD CELL COUNT (BEAKER) (test khxz=995) 2.25 M/ L 4.63-6.08 HEMOGLOBIN (BEAKER) (test waxu=140) 7.1 GM/DL 13.7-17.5 HEMATOCRIT (BEAKER) (test ayia=800) 21.4 % 40.1-51.0 MEAN CORPUSCULAR VOLUME (BEAKER) (test lfou=644) 95.1 fL 79.0-92.2 MEAN CORPUSCULAR HEMOGLOBIN (BEAKER) (test 31.6 pg 25.7-32.2 xkqn=734) MEAN CORPUSCULAR HEMOGLOBIN CONC (BEAKER) (test 33.2 GM/DL 32.3-36.5 ipmk=338) RED CELL DISTRIBUTION WIDTH (BEAKER) (test 17.5 % 11.6-14.4 xzaq=854) PLATELET COUNT (BEAKER) (test qaio=068) 44 K/CU MM 150-450 MEAN PLATELET VOLUME (BEAKER) (test bfci=301) 9.3 fL 9.4-12.4 NUCLEATED RED BLOOD CELLS (BEAKER) (test 0 /100 WBC 0-0 oiki=528) NEUTROPHILS RELATIVE PERCENT (BEAKER) (test 59 % qjpy=456) LYMPHOCYTES RELATIVE PERCENT (BEAKER) (test 16 % dnet=764) MONOCYTES RELATIVE PERCENT (BEAKER) (test 17 % bdjb=078) EOSINOPHILS RELATIVE PERCENT (BEAKER) (test 7 % etat=726) BASOPHILS RELATIVE PERCENT (BEAKER) (test 0 % upai=283) NEUTROPHILS ABSOLUTE COUNT (BEAKER) (test 1.72 K/ L 1.78-5.38 rlsv=639) LYMPHOCYTES ABSOLUTE COUNT (BEAKER) (test 0.46 K/ L 1.32-3.57 nvda=266) MONOCYTES ABSOLUTE COUNT (BEAKER) (test ykgl=307) 0.51 K/ L 0.30-0.82 EOSINOPHILS ABSOLUTE COUNT (BEAKER) (test 0.21 K/ L 0.04-0.54 vznv=949) BASOPHILS ABSOLUTE COUNT (BEAKER) (test sfku=353) 0.01 K/ L 0.01-0.08 IMMATURE GRANULOCYTES-RELATIVE PERCENT (BEAKER) 1 % 0-1 (test uyjr=6233) BASIC METABOLIC [id number] 07:00:00 Test Item Value Reference Range Comments SODIUM (BEAKER) (test 130 meq/L 136-145 jomv=935) POTASSIUM (BEAKER) (test 3.6 meq/L 3.5-5.1 hmgw=464) CHLORIDE (BEAKER) (test 94 meq/L 98-107 xnxb=027) CO2 (BEAKER) (test 27 meq/L 22-29 cyva=105) BLOOD UREA NITROGEN 19 mg/dL 7-21 (BEAKER) (test flao=270) CREATININE (BEAKER) (test 1.40 mg/dL 0.57-1.25 ipyr=792) GLUCOSE RANDOM (BEAKER) 111 mg/dL 70-105 (test zdei=061) CALCIUM (BEAKER) (test 9.2 mg/dL 8.4-10.2 dkkh=414) EGFR (BEAKER) (test 53 mL/min/1.73 sq m ESTIMATED GFR IS NOT dvig=6642) ACCURATE CREATININE CLEARANCE IN PREDICTING GLOMERULAR FILTRATION RATE. ESTIMATED GFR IS NOT APPLICABLE FOR DIALYSIS PATIENTS. Specimen moderately ictericCOMPREHENSIVE METABOLIC [id number] 07:00:00 Test Item Value Reference Range Comments TOTAL PROTEIN (BEAKER) 5.7 gm/dL 6.0-8.3 (test oirm=345) ALBUMIN (BEAKER) (test 4.0 g/dL 3.5-5.0 slmi=5388) ALKALINE PHOSPHATASE 92 U/L 40-150 (BEAKER) (test obrc=253) BILIRUBIN TOTAL (BEAKER) 4.6 mg/dL 0.2-1.2 (test qnos=516) SODIUM (BEAKER) (test 130 meq/L 136-145 bitk=732) POTASSIUM (BEAKER) (test 3.6 meq/L 3.5-5.1 mmmd=770) CHLORIDE (BEAKER) (test 94 meq/L 98-107 bhyw=719) CO2 (BEAKER) (test 27 meq/L 22-29 yhcv=437) BLOOD UREA NITROGEN 19 mg/dL 7-21 (BEAKER) (test eyxf=053) CREATININE (BEAKER) (test 1.40 mg/dL 0.57-1.25 hcug=766) GLUCOSE RANDOM (BEAKER) 111 mg/dL 70-105 (test kkxt=959) CALCIUM (BEAKER) (test 9.2 mg/dL 8.4-10.2 slat=538) AST (SGOT) (BEAKER) (test 16 U/L 5-34 vuyt=945) ALT (SGPT) (BEAKER) (test 6 U/L 6-55 qvts=850) EGFR (BEAKER) (test 53 mL/min/1.73 sq m ESTIMATED GFR IS NOT elax=6350) ACCURATE CREATININE CLEARANCE IN PREDICTING GLOMERULAR FILTRATION RATE. ESTIMATED GFR IS NOT APPLICABLE FOR DIALYSIS PATIENTS. Specimen moderately ictericHEPATIC FUNCTION [id number] 07:00:00 Test Item Value Reference Range Comments TOTAL PROTEIN (BEAKER) (test gyhc=830) 5.7 gm/dL 6.0-8.3 ALBUMIN (BEAKER) (test tlub=0246) 4.0 g/dL 3.5-5.0 BILIRUBIN TOTAL (BEAKER) (test huab=572) 4.6 mg/dL 0.2-1.2 BILIRUBIN DIRECT (BEAKER) (test oouv=562) 1.8 mg/dL 0.1-0.5 ALKALINE PHOSPHATASE (BEAKER) (test yphd=229) 92 U/L 40-150 AST (SGOT) (BEAKER) (test pjla=111) 16 U/L 5-34 ALT (SGPT) (BEAKER) (test ywwa=126) 6 U/L 6-55 Specimen moderately [id number] 06:57:00 Test Item Value Reference Range Comments PARTIAL THROMBOPLASTIN TIME (BEAKER) (test 47.9 seconds 22.5-36.0 wgcn=869) PROTHROMBIN [id number] 06:55:00 Test Item Value Reference Range Comments PROTIME (BEAKER) (test biba=153) 23.7 seconds 11.7-14.7 INR (BEAKER) (test sqla=237) 2.1 <=5.9 RECOMMENDED COUMADIN/WARFARIN INR THERAPY RANGESSTANDARD DOSE: 2.0 - 3.0 Includes: PROPHYLAXIS forvenous thrombosis, systemic embolization; TREATMENT for venous thrombosis and/or pulmonary embolus.HIGH RISK: Target INR is 2.5-3.5 for patients with mechanical heart valves.MR, SPINE, LUMBAR, WITHOUT [id number] 16:57:00FINAL REPORT MRI lumbar spine without contrast [...] Bain Verified Date/Time: 05/07/2018 16:57:00 Reading Location: [facility] Radiology Reading Room LACTIC ACID, VENOUS, WHOLE [id number] 14:13:00 Test Item Value Reference Range Comments LACTATE BLOOD VENOUS (2) (BEAKER) (test 2.6 mmol/L 0.5-2.2 pcms=9371) Effective 02/28/2016: Units/Reference Range ChangeNew: 0.5-2.2 mmol/L Previous: 5 -20 mg/dLSpecimen slightly ictericHEMOGLOBIN AND [id number] 13:51:00 Test Item Value Reference Range Comments HEMOGLOBIN (BEAKER) (test ailn=828) 7.1 GM/DL 13.7-17.5 HEMATOCRIT (BEAKER) (test tlbt=653) 21.7 % 40.1-51.0 U/S, RENAL, [id number] 09:48:00Reason for exam:->AKIFINAL REPORT Renal ultrasound Clinical [...] MDReport Verified Date/Time: 05/07/2018 09:48:55 Reading Location: [address] Ultrasound Reading Room Electronically signed by: REECE HAQUE MD on 09:[id number] 09:04:00 Test Item Value Reference Range Comments MAGNESIUM (BEAKER) (test pkom=358) 2.0 mg/dL 1.6-2.6 COMPREHENSIVE METABOLIC [id number] 09:04:00 Test Item Value Reference Range Comments TOTAL PROTEIN (BEAKER) 5.2 gm/dL 6.0-8.3 (test dvcy=804) ALBUMIN (BEAKER) (test 3.5 g/dL 3.5-5.0 jzel=8646) ALKALINE PHOSPHATASE 96 U/L 40-150 (BEAKER) (test shbz=544) BILIRUBIN TOTAL (BEAKER) 4.1 mg/dL 0.2-1.2 (test krjb=129) SODIUM (BEAKER) (test 129 meq/L 136-145 xnef=680) POTASSIUM (BEAKER) (test 3.8 meq/L 3.5-5.1 pbcc=294) CHLORIDE (BEAKER) (test 96 meq/L 98-107 aeqc=356) CO2 (BEAKER) (test 25 meq/L 22-29 vxlw=958) BLOOD UREA NITROGEN 22 mg/dL 7-21 (BEAKER) (test vaoh=015) CREATININE (BEAKER) (test 1.57 mg/dL 0.57-1.25 pmgr=980) GLUCOSE RANDOM (BEAKER) 122 mg/dL 70-105 (test bojh=026) CALCIUM (BEAKER) (test 8.9 mg/dL 8.4-10.2 ajhr=594) AST (SGOT) (BEAKER) (test 15 U/L 5-34 wcxc=835) ALT (SGPT) (BEAKER) (test 7 U/L 6-55 pgdf=197) EGFR (BEAKER) (test 47 mL/min/1.73 sq m ESTIMATED GFR IS NOT jieq=2606) ACCURATE CREATININE CLEARANCE IN PREDICTING GLOMERULAR FILTRATION RATE. ESTIMATED GFR IS NOT APPLICABLE FOR DIALYSIS PATIENTS. Specimen moderately ictericHEPATIC FUNCTION [id number] 09:04:00 Test Item Value Reference Range Comments TOTAL PROTEIN (BEAKER) (test hkfk=971) 5.2 gm/dL 6.0-8.3 ALBUMIN (BEAKER) (test shiy=1084) 3.5 g/dL 3.5-5.0 BILIRUBIN TOTAL (BEAKER) (test dsol=796) 4.1 mg/dL 0.2-1.2 BILIRUBIN DIRECT (BEAKER) (test ejwx=034) 1.8 mg/dL 0.1-0.5 ALKALINE PHOSPHATASE (BEAKER) (test mxum=559) 96 U/L 40-150 AST (SGOT) (BEAKER) (test hore=760) 15 U/L 5-34 ALT (SGPT) (BEAKER) (test wqvb=412) 7 U/L 6-55 Specimen moderately ictericCBC W/PLT COUNT & AUTO [id number] 08: 26:00 Test Item Value Reference Range Comments WHITE BLOOD CELL COUNT (BEAKER) (test jfyv=584) 2.7 K/ L 3.5-10.5 RED BLOOD CELL COUNT (BEAKER) (test ppkm=684) 2.13 M/ L 4.63-6.08 HEMOGLOBIN (BEAKER) (test ncay=302) 6.8 GM/DL 13.7-17.5 HEMATOCRIT (BEAKER) (test qlyg=348) 19.5 % 40.1-51.0 MEAN CORPUSCULAR VOLUME (BEAKER) (test wnhg=139) 91.5 fL 79.0-92.2 MEAN CORPUSCULAR HEMOGLOBIN (BEAKER) (test 31.9 pg 25.7-32.2 ccvr=600) MEAN CORPUSCULAR HEMOGLOBIN CONC (BEAKER) (test 34.9 GM/DL 32.3-36.5 vjaj=595) RED CELL DISTRIBUTION WIDTH (BEAKER) (test 17.5 % 11.6-14.4 mlbi=587) PLATELET COUNT (BEAKER) (test hfst=865) 52 K/CU MM 150-450 MEAN PLATELET VOLUME (BEAKER) (test osog=339) 9.1 fL 9.4-12.4 NUCLEATED RED BLOOD CELLS (BEAKER) (test 0 /100 WBC 0-0 cyck=991) NEUTROPHILS RELATIVE PERCENT (BEAKER) (test 62 % ciru=087) LYMPHOCYTES RELATIVE PERCENT (BEAKER) (test 16 % fzbv=021) MONOCYTES RELATIVE PERCENT (BEAKER) (test 17 % ltko=610) EOSINOPHILS RELATIVE PERCENT (BEAKER) (test 4 % eqfx=209) BASOPHILS RELATIVE PERCENT (BEAKER) (test 0 % cbuk=615) NEUTROPHILS ABSOLUTE COUNT (BEAKER) (test 1.66 K/ L 1.78-5.38 wqre=151) LYMPHOCYTES ABSOLUTE COUNT (BEAKER) (test 0.43 K/ L 1.32-3.57 ncdx=420) MONOCYTES ABSOLUTE COUNT (BEAKER) (test pneq=850) 0.44 K/ L 0.30-0.82 EOSINOPHILS ABSOLUTE COUNT (BEAKER) (test 0.11 K/ L 0.04-0.54 btvi=865) BASOPHILS ABSOLUTE COUNT (BEAKER) (test hsxj=731) 0.00 K/ L 0.01-0.08 IMMATURE GRANULOCYTES-RELATIVE PERCENT (BEAKER) 1 % 0-1 (test tsgv=8798) PROTHROMBIN [id number] 08:08:00 Test Item Value Reference Range Comments PROTIME (BEAKER) (test ooaj=788) 28.3 seconds 11.7-14.7 INR (BEAKER) (test zboz=650) 2.7 <=5.9 RECOMMENDED COUMADIN/WARFARIN INR THERAPY RANGESSTANDARD DOSE: 2.0 - 3.0 Includes: PROPHYLAXIS forvenous thrombosis, systemic embolization; TREATMENT for venous thrombosis and/or pulmonary embolus.HIGH RISK: Target INR is 2.5-3.5 for patients with mechanical heart valves.[id number] 19:47:00 Test Item Value Reference Range Comments SODIUM (BEAKER) (test wxlb=202) 129 meq/L 136-145 POTASSIUM (BEAKER) (test ldho=787) 4.6 meq/L 3.5-5.1 CHLORIDE (BEAKER) (test svnb=475) 96 meq/L 98-107 CO2 (BEAKER) (test aful=491) 22 meq/L 22-29 Call [id number] 19:27:00 Test Item Value Reference Range Comments HEMOGLOBIN (BEAKER) (test thkb=863) 7.1 GM/DL 13.7-17.5 HEMATOCRIT (BEAKER) (test cbrq=145) 21.4 % 40.1-51.0 Draw after transfusion of 1u RBC, notify hospitalist if Hgb remains less than 7.0HEMOGLOBIN AND [id number] 11:52:00 Test Item Value Reference Range Comments HEMOGLOBIN (BEAKER) (test kntz=612) 6.3 GM/DL 13.7-17.5 HEMATOCRIT (BEAKER) (test irte=047) 18.9 % 40.1-51.0 Notify Hepatology if Hgb< 7.0YUNIOR Sandoval PA-CPager#: .BASIC METABOLIC [id number] 05:55:00 Test Item Value Reference Range Comments SODIUM (BEAKER) (test 129 meq/L 136-145 xgzo=808) POTASSIUM (BEAKER) (test 5.2 meq/L 3.5-5.1 gewl=447) CHLORIDE (BEAKER) (test 97 meq/L 98-107 avqi=497) CO2 (BEAKER) (test 22 meq/L 22-29 cmly=624) BLOOD UREA NITROGEN 28 mg/dL 7-21 (BEAKER) (test tzmu=662) CREATININE (BEAKER) (test 1.95 mg/dL 0.57-1.25 boda=799) GLUCOSE RANDOM (BEAKER) 102 mg/dL 70-105 (test vbik=880) CALCIUM (BEAKER) (test 9.4 mg/dL 8.4-10.2 bnga=127) EGFR (BEAKER) (test 36 mL/min/1.73 sq m ESTIMATED GFR IS NOT bbzz=5001) ACCURATE CREATININE CLEARANCE IN PREDICTING GLOMERULAR FILTRATION RATE. ESTIMATED GFR IS NOT APPLICABLE FOR DIALYSIS PATIENTS. Specimen slightly ictericHEPATIC FUNCTION [id number] 05:55:00 Test Item Value Reference Range Comments TOTAL PROTEIN (BEAKER) (test ppsm=386) 5.6 gm/dL 6.0-8.3 ALBUMIN (BEAKER) (test kogh=5798) 3.4 g/dL 3.5-5.0 BILIRUBIN TOTAL (BEAKER) (test axci=725) 3.7 mg/dL 0.2-1.2 BILIRUBIN DIRECT (BEAKER) (test ztih=760) 2.5 mg/dL 0.1-0.5 ALKALINE PHOSPHATASE (BEAKER) (test cqzp=428) 108 U/L 40-150 AST (SGOT) (BEAKER) (test jvby=295) 17 U/L 5-34 ALT (SGPT) (BEAKER) (test zqus=032) 7 U/L 6-55 Specimen slightly ictericCBC W/PLT COUNT & AUTO [id number] 05:42 :00 Test Item Value Reference Range Comments WHITE BLOOD CELL COUNT (BEAKER) (test wznp=702) 3.7 K/ L 3.5-10.5 RED BLOOD CELL COUNT (BEAKER) (test sbhl=808) 2.10 M/ L 4.63-6.08 HEMOGLOBIN (BEAKER) (test kblh=379) 6.5 GM/DL 13.7-17.5 HEMATOCRIT (BEAKER) (test srgz=100) 19.8 % 40.1-51.0 MEAN CORPUSCULAR VOLUME (BEAKER) (test algp=269) 94.3 fL 79.0-92.2 MEAN CORPUSCULAR HEMOGLOBIN (BEAKER) (test 31.0 pg 25.7-32.2 rngk=672) MEAN CORPUSCULAR HEMOGLOBIN CONC (BEAKER) (test 32.8 GM/DL 32.3-36.5 fjqg=224) RED CELL DISTRIBUTION WIDTH (BEAKER) (test 16.4 % 11.6-14.4 wbhy=836) PLATELET COUNT (BEAKER) (test dwos=521) 54 K/CU MM 150-450 MEAN PLATELET VOLUME (BEAKER) (test szye=706) 9.8 fL 9.4-12.4 NUCLEATED RED BLOOD CELLS (BEAKER) (test 0 /100 WBC 0-0 cqnd=882) NEUTROPHILS RELATIVE PERCENT (BEAKER) (test 62 % hegx=370) LYMPHOCYTES RELATIVE PERCENT (BEAKER) (test 15 % oykb=513) MONOCYTES RELATIVE PERCENT (BEAKER) (test 18 % dosb=701) EOSINOPHILS RELATIVE PERCENT (BEAKER) (test 3 % zurd=977) BASOPHILS RELATIVE PERCENT (BEAKER) (test 0 % rkms=232) NEUTROPHILS ABSOLUTE COUNT (BEAKER) (test 2.27 K/ L 1.78-5.38 vpls=996) LYMPHOCYTES ABSOLUTE COUNT (BEAKER) (test 0.56 K/ L 1.32-3.57 wcoi=216) MONOCYTES ABSOLUTE COUNT (BEAKER) (test aeow=034) 0.66 K/ L 0.30-0.82 EOSINOPHILS ABSOLUTE COUNT (BEAKER) (test 0.12 K/ L 0.04-0.54 zwou=009) BASOPHILS ABSOLUTE COUNT (BEAKER) (test zvng=306) 0.01 K/ L 0.01-0.08 IMMATURE GRANULOCYTES-RELATIVE PERCENT (BEAKER) 1 % 0-1 (test lsxz=2294) PROTHROMBIN [id number] 05:34:00 Test Item Value Reference Range Comments PROTIME (BEAKER) (test ggqk=431) 21.7 seconds 11.7-14.7 INR (BEAKER) (test ipty=769) 1.9 <=5.9 RECOMMENDED COUMADIN/WARFARIN INR THERAPY RANGESSTANDARD DOSE: 2.0 - 3.0 Includes: PROPHYLAXIS forvenous thrombosis, systemic embolization; TREATMENT for venous thrombosis and/or pulmonary embolus.HIGH RISK: Target INR is 2.5-3.5 for patients with mechanical heart valves.EOSINOPHIL SMEAR, [id number] 21: 51:00 Test Item Value Reference Range Comments EOSINOPHIL SMEAR, URINE (BEAKER) (test No EOS seen No EOS seen bggk=2991) BODY FLUID CELL COUNT WITH [id number] 21:42:00 Test Item Value Reference Range Comments APPEARANCE FLUID (BEAKER) (test bwgp=693) Hazy Clear COLOR FLUID (BEAKER) (test huro=386) Yellow Colorless, Straw RBC FLUID (BEAKER) (test ftmj=677) 70 /cu mm <=1 ADJUSTED WBC FLUID (BEAKER) (test oryo=5223) 44 /cu mm <=5 LINING CELLS (BEAKER) (test ipcr=1302) 8 /cu mm <=1 NEUTROPHILS FLUID (BEAKER) (test iild=4389) 0 % LYMPHS FLUID (BEAKER) (test wuli=547) 11 % MONO/MACROPHAGE FLUID (BEAKER) (test wpff=250) 89 % EOSINOPHILS FLUID (BEAKER) (test szsu=970) 0 % BASO FLUID (BEAKER) (test mofx=432) 0 % CONTAINER BODY FLUID (BEAKER) (test zghi=9981) EDTA Tube OSMOLALITY, [id number] 19:46:00 Test Item Value Reference Range Comments OSMOLALITY URINE (BEAKER) (test jnmr=615) 355 mOsm/kg 40-1400 SODIUM, RANDOM [id number] 19:35:00 Test Item Value Reference Range Comments SODIUM URINE (BEAKER) (test wusd=462) < meq/L Reference Range: No NormalsPROTEIN, RANDOM [id number] 19:27:00 Test Item Value Reference Range Comments PROTEIN, URINE (BEAKER) (test gcmp=1104) 7 mg/dL 0-14 CREATININE, RANDOM [id number] 19:25:00 Test Item Value Reference Range Comments CREATININE URINE (BEAKER) (test vuzr=616) 150.3 mg/dL Reference Range: No [id number] 16:26:00 Test Item Value Reference Range Comments PREALBUMIN (BEAKER) (test upjm=022) 5 mg/dL 14-45 Listed for OLT - Nutrition Surveillance ([facility] Hepatology Transplant Team)U/S, [id number] 14:56:00Reason for exam:->ascites - limit to 5L [...] MDReport Verified Date/Time: 05/05/2018 14:56:27 Reading Location: [address] Ultrasound Reading Room BASIC METABOLIC [id number] 09:36:00 Test Item Value Reference Range Comments SODIUM (BEAKER) (test 125 meq/L 136-145 pkbc=879) POTASSIUM (BEAKER) (test 4.2 meq/L 3.5-5.1 xqqz=147) CHLORIDE (BEAKER) (test 95 meq/L 98-107 chhh=587) CO2 (BEAKER) (test 23 meq/L 22-29 jnnd=838) BLOOD UREA NITROGEN 29 mg/dL 7-21 (BEAKER) (test lccl=279) CREATININE (BEAKER) (test 2.01 mg/dL 0.57-1.25 iqkz=655) GLUCOSE RANDOM (BEAKER) 112 mg/dL 70-105 (test hkxw=032) CALCIUM (BEAKER) (test 9.2 mg/dL 8.4-10.2 xbae=369) EGFR (BEAKER) (test 35 mL/min/1.73 sq m ESTIMATED GFR IS NOT poli=4278) ACCURATE CREATININE CLEARANCE IN PREDICTING GLOMERULAR FILTRATION RATE. ESTIMATED GFR IS NOT APPLICABLE FOR DIALYSIS PATIENTS. Specimen slightly ictericHEPATIC FUNCTION [id number] 09:36:00 Test Item Value Reference Range Comments TOTAL PROTEIN (BEAKER) (test upki=576) 5.3 gm/dL 6.0-8.3 ALBUMIN (BEAKER) (test eogn=8282) 3.0 g/dL 3.5-5.0 BILIRUBIN TOTAL (BEAKER) (test oapr=570) 4.1 mg/dL 0.2-1.2 BILIRUBIN DIRECT (BEAKER) (test pomh=541) 2.8 mg/dL 0.1-0.5 ALKALINE PHOSPHATASE (BEAKER) (test lbec=051) 115 U/L 40-150 AST (SGOT) (BEAKER) (test ysyu=976) 20 U/L 5-34 ALT (SGPT) (BEAKER) (test xzbt=520) 9 U/L 6-55 Specimen slightly ictericCBC W/PLT COUNT & AUTO [id number] 09:28 :00 Test Item Value Reference Range Comments WHITE BLOOD CELL COUNT (BEAKER) (test jqsy=627) 4.4 K/ L 3.5-10.5 RED BLOOD CELL COUNT (BEAKER) (test afri=286) 2.20 M/ L 4.63-6.08 HEMOGLOBIN (BEAKER) (test zspu=699) 7.1 GM/DL 13.7-17.5 HEMATOCRIT (BEAKER) (test gdwy=457) 21.1 % 40.1-51.0 MEAN CORPUSCULAR VOLUME (BEAKER) (test rbxa=763) 95.9 fL 79.0-92.2 MEAN CORPUSCULAR HEMOGLOBIN (BEAKER) (test 32.3 pg 25.7-32.2 naiz=241) MEAN CORPUSCULAR HEMOGLOBIN CONC (BEAKER) (test 33.6 GM/DL 32.3-36.5 rzvy=894) RED CELL DISTRIBUTION WIDTH (BEAKER) (test 16.7 % 11.6-14.4 mvmy=795) PLATELET COUNT (BEAKER) (test wxyp=002) 60 K/CU MM 150-450 MEAN PLATELET VOLUME (BEAKER) (test qwxn=623) 9.7 fL 9.4-12.4 NUCLEATED RED BLOOD CELLS (BEAKER) (test 0 /100 WBC 0-0 mgbg=244) NEUTROPHILS RELATIVE PERCENT (BEAKER) (test 71 % sdpk=218) LYMPHOCYTES RELATIVE PERCENT (BEAKER) (test 9 % znpl=387) MONOCYTES RELATIVE PERCENT (BEAKER) (test 16 % vosx=112) EOSINOPHILS RELATIVE PERCENT (BEAKER) (test 3 % ynjk=040) BASOPHILS RELATIVE PERCENT (BEAKER) (test 0 % jndd=216) NEUTROPHILS ABSOLUTE COUNT (BEAKER) (test 3.10 K/ L 1.78-5.38 tbca=209) LYMPHOCYTES ABSOLUTE COUNT (BEAKER) (test 0.39 K/ L 1.32-3.57 yzhx=380) MONOCYTES ABSOLUTE COUNT (BEAKER) (test miao=453) 0.69 K/ L 0.30-0.82 EOSINOPHILS ABSOLUTE COUNT (BEAKER) (test 0.12 K/ L 0.04-0.54 dyzq=940) BASOPHILS ABSOLUTE COUNT (BEAKER) (test qvvb=795) 0.01 K/ L 0.01-0.08 IMMATURE GRANULOCYTES-RELATIVE PERCENT (BEAKER) 1 % 0-1 (test aowp=7085) PROTHROMBIN [id number] 09:07:00 Test Item Value Reference Range Comments PROTIME (BEAKER) (test rrvb=691) 21.6 seconds 11.7-14.7 INR (BEAKER) (test pvrr=999) 1.9 <=5.9 RECOMMENDED COUMADIN/WARFARIN INR THERAPY RANGESSTANDARD DOSE: 2.0 - 3.0 Includes: PROPHYLAXIS forvenous thrombosis, systemic embolization; TREATMENT for venous thrombosis and/or pulmonary embolus.HIGH RISK: Target INR is 2.5-3.5 for patients with mechanical heart valves.[id number] 13:59:00 Test Item Value Reference Range Comments POC-CREATININE (BEAKER) 2.0 mg/dL 0.6-1.3 TESTED AT [address] (test ekux=4524) [facility] [address] POC-EGFR (BEAKER) (test 35 mL/min/1.73M2 czcl=9669) PET/CT, LIMITED AREA [id number] 08:25:00PET/ CT ChestReason for Exam:-> Elongated nodular [...] thighsAdditional imaging: NoneSerum blood glucose: 119CPT Code: 49129 FINDINGS:Head and Neck: There is no trisha [...] Hung Verified Date/Time: 03/31/2018 08:25:09 POCT- GLUCOSE [id number] 14:54:00 Test Item Value Reference Range Comments POC-GLUCOSE METER (BEAKER) 119 mg/dL 70-110 TESTED AT [facility] [address] (test nbov=2589) [facility] [address] COMPREHENSIVE METABOLIC [id number] 16:49:00 Test Item Value Reference Range Comments TOTAL PROTEIN (BEAKER) 6.2 gm/dL 6.0-8.3 (test mudn=688) ALBUMIN (BEAKER) (test 3.4 g/dL 3.5-5.0 rzas=7747) ALKALINE PHOSPHATASE 139 U/L 40-150 (BEAKER) (test xjhh=421) BILIRUBIN TOTAL (BEAKER) 4.0 mg/dL 0.2-1.2 (test ksdf=916) SODIUM (BEAKER) (test 129 meq/L 136-145 rvpg=276) POTASSIUM (BEAKER) (test 4.3 meq/L 3.5-5.1 kyhw=146) CHLORIDE (BEAKER) (test 96 meq/L 98-107 cnbb=479) CO2 (BEAKER) (test 22 meq/L 22-29 rptb=558) BLOOD UREA NITROGEN 28 mg/dL 7-21 (BEAKER) (test mfmp=523) CREATININE (BEAKER) (test 1.51 mg/dL 0.57-1.25 qcjk=878) GLUCOSE RANDOM (BEAKER) 89 mg/dL 70-105 (test jwwc=099) CALCIUM (BEAKER) (test 9.5 mg/dL 8.4-10.2 fjir=840) AST (SGOT) (BEAKER) (test 26 U/L 5-34 qsjs=095) ALT (SGPT) (BEAKER) (test 11 U/L 6-55 yxul=057) EGFR (BEAKER) (test 49 mL/min/1.73 sq m ESTIMATED GFR IS NOT vgwr=1719) ACCURATE CREATININE CLEARANCE IN PREDICTING GLOMERULAR FILTRATION RATE. ESTIMATED GFR IS NOT APPLICABLE FOR DIALYSIS PATIENTS. Specimen slightly ictericBILIRUBIN, [id number] 16:49:00 Test Item Value Reference Range Comments BILIRUBIN DIRECT (BEAKER) (test olvc=038) 2.8 mg/dL 0.1-0.5 PROTHROMBIN [id number] 16:36:00 Test Item Value Reference Range Comments PROTIME (BEAKER) (test gnkq=087) 19.0 seconds 11.7-14.7 INR (BEAKER) (test frxj=308) 1.6 <=5.9 RECOMMENDED COUMADIN/WARFARIN INR THERAPY RANGESSTANDARD DOSE: 2.0 - 3.0 Includes: PROPHYLAXIS forvenous thrombosis, systemic embolization; TREATMENT for venous thrombosis and/or pulmonary embolus.HIGH RISK: Target INR is 2.5-3.5 for patients with mechanical heart valves.CBC W/PLT COUNT & AUTO [id number] 16:27:00 Test Item Value Reference Range Comments WHITE BLOOD CELL COUNT (BEAKER) (test bnnn=525) 6.0 K/ L 3.5-10.5 RED BLOOD CELL COUNT (BEAKER) (test ctvn=100) 2.74 M/ L 4.63-6.08 HEMOGLOBIN (BEAKER) (test uywl=446) 9.3 GM/DL 13.7-17.5 HEMATOCRIT (BEAKER) (test kiel=912) 27.6 % 40.1-51.0 MEAN CORPUSCULAR VOLUME (BEAKER) (test fqkb=238) 100.7 fL 79.0-92.2 MEAN CORPUSCULAR HEMOGLOBIN (BEAKER) (test 33.9 pg 25.7-32.2 anky=049) MEAN CORPUSCULAR HEMOGLOBIN CONC (BEAKER) (test 33.7 GM/DL 32.3-36.5 eyrk=366) RED CELL DISTRIBUTION WIDTH (BEAKER) (test 14.9 % 11.6-14.4 mgzv=894) PLATELET COUNT (BEAKER) (test xivo=449) 96 K/CU MM 150-450 MEAN PLATELET VOLUME (BEAKER) (test xloc=060) 9.4 fL 9.4-12.4 NUCLEATED RED BLOOD CELLS (BEAKER) (test 0 /100 WBC 0-0 ymvh=917) NEUTROPHILS RELATIVE PERCENT (BEAKER) (test 64 % eria=016) LYMPHOCYTES RELATIVE PERCENT (BEAKER) (test 11 % wlfj=203) MONOCYTES RELATIVE PERCENT (BEAKER) (test 16 % praf=188) EOSINOPHILS RELATIVE PERCENT (BEAKER) (test 7 % xoyv=817) BASOPHILS RELATIVE PERCENT (BEAKER) (test 1 % xasi=879) NEUTROPHILS ABSOLUTE COUNT (BEAKER) (test 3.83 K/ L 1.78-5.38 bxiw=141) LYMPHOCYTES ABSOLUTE COUNT (BEAKER) (test 0.66 K/ L 1.32-3.57 adfm=714) MONOCYTES ABSOLUTE COUNT (BEAKER) (test pcrl=850) 0.95 K/ L 0.30-0.82 EOSINOPHILS ABSOLUTE COUNT (BEAKER) (test 0.41 K/ L 0.04-0.54 ynuw=566) BASOPHILS ABSOLUTE COUNT (BEAKER) (test zvhk=473) 0.03 K/ L 0.01-0.08 IMMATURE GRANULOCYTES-RELATIVE PERCENT (BEAKER) 2 % 0-1 (test alkp=3013) BASIC METABOLIC [id number] 08:26:00 Test Item Value Reference Range Comments SODIUM (BEAKER) (test 127 meq/L 136-145 dzoq=964) POTASSIUM (BEAKER) (test 4.3 meq/L 3.5-5.1 oane=936) CHLORIDE (BEAKER) (test 96 meq/L 98-107 fwjk=575) CO2 (BEAKER) (test 23 meq/L 22-29 vkqm=074) BLOOD UREA NITROGEN 25 mg/dL 7-21 (BEAKER) (test dmtr=030) CREATININE (BEAKER) (test 1.46 mg/dL 0.57-1.25 fnqn=528) GLUCOSE RANDOM (BEAKER) 130 mg/dL 70-105 (test xurx=240) CALCIUM (BEAKER) (test 9.1 mg/dL 8.4-10.2 miqx=164) EGFR (BEAKER) (test 51 mL/min/1.73 sq m ESTIMATED GFR IS NOT xgop=3080) ACCURATE CREATININE CLEARANCE IN PREDICTING GLOMERULAR FILTRATION RATE. ESTIMATED GFR IS NOT APPLICABLE FOR DIALYSIS PATIENTS. Specimen slightly ictericCBC (HEMOGRAM ONLY)2018-02-23 08:06:00 Test Item Value Reference Range Comments WHITE BLOOD CELL COUNT (BEAKER) (test fqvg=108) 5.4 K/ L 3.5-10.5 RED BLOOD CELL COUNT (BEAKER) (test umyx=009) 2.64 M/ L 4.63-6.08 HEMOGLOBIN (BEAKER) (test kocy=932) 8.8 GM/DL 13.7-17.5 HEMATOCRIT (BEAKER) (test vggd=578) 26.2 % 40.1-51.0 MEAN CORPUSCULAR VOLUME (BEAKER) (test dxpo=282) 99.2 fL 79.0-92.2 MEAN CORPUSCULAR HEMOGLOBIN (BEAKER) (test 33.3 pg 25.7-32.2 jwba=710) MEAN CORPUSCULAR HEMOGLOBIN CONC (BEAKER) (test 33.6 GM/DL 32.3-36.5 ifqu=500) RED CELL DISTRIBUTION WIDTH (BEAKER) (test 16.2 % 11.6-14.4 piqk=889) PLATELET COUNT (BEAKER) (test ssug=258) 100 K/CU MM 150-450 MEAN PLATELET VOLUME (BEAKER) (test tkmd=380) 8.7 fL 9.4-12.4 NUCLEATED RED BLOOD CELLS (BEAKER) (test 0 /100 WBC 0-0 dhwv=496) COMPREHENSIVE METABOLIC [id number] 15:06:00 Test Item Value Reference Range Comments TOTAL PROTEIN (BEAKER) 6.5 gm/dL 6.0-8.3 (test ydho=112) ALBUMIN (BEAKER) (test 3.7 g/dL 3.5-5.0 nevv=3617) ALKALINE PHOSPHATASE 135 U/L 40-150 (BEAKER) (test cxwn=507) BILIRUBIN TOTAL (BEAKER) 4.5 mg/dL 0.2-1.2 (test bcwl=277) SODIUM (BEAKER) (test 131 meq/L 136-145 leru=891) POTASSIUM (BEAKER) (test 5.8 meq/L 3.5-5.1 izar=623) CHLORIDE (BEAKER) (test 103 meq/L 98-107 gjqq=982) CO2 (BEAKER) (test 24 meq/L 22-29 odnk=053) BLOOD UREA NITROGEN 27 mg/dL 7-21 (BEAKER) (test biav=569) CREATININE (BEAKER) (test 1.17 mg/dL 0.57-1.25 mxat=574) GLUCOSE RANDOM (BEAKER) 111 mg/dL 70-105 (test dyzq=097) CALCIUM (BEAKER) (test 11.0 mg/dL 8.4-10.2 bnna=426) AST (SGOT) (BEAKER) (test 28 U/L 5-34 xfxv=238) ALT (SGPT) (BEAKER) (test 19 U/L 6-55 nwui=211) EGFR (BEAKER) (test 65 mL/min/1.73 sq m ESTIMATED GFR IS NOT awql=3438) ACCURATE CREATININE CLEARANCE IN PREDICTING GLOMERULAR FILTRATION RATE. ESTIMATED GFR IS NOT APPLICABLE FOR DIALYSIS PATIENTS. Specimen slightly ictericBILIRUBIN, [id number] 15:06:00 Test Item Value Reference Range Comments BILIRUBIN DIRECT (BEAKER) (test qtta=003) 3.0 mg/dL 0.1-0.5 PROTHROMBIN [id number] 14:42:00 Test Item Value Reference Range Comments PROTIME (BEAKER) (test mhdl=431) 19.1 seconds 11.7-14.7 INR (BEAKER) (test iqte=673) 1.6 <=5.9 RECOMMENDED COUMADIN/WARFARIN INR THERAPY RANGESSTANDARD DOSE: 2.0 - 3.0 Includes: PROPHYLAXIS forvenous thrombosis, systemic embolization; TREATMENT for venous thrombosis and/or pulmonary embolus.HIGH RISK: Target INR is 2.5-3.5 for patients with mechanical heart valves.CBC W/PLT COUNT & AUTO [id number] 14:36:00 Test Item Value Reference Range Comments WHITE BLOOD CELL COUNT (BEAKER) (test gzvu=975) 5.5 K/ L 3.5-10.5 RED BLOOD CELL COUNT (BEAKER) (test mtzq=762) 2.84 M/ L 4.63-6.08 HEMOGLOBIN (BEAKER) (test anzu=250) 9.5 GM/DL 13.7-17.5 HEMATOCRIT (BEAKER) (test vpzt=131) 28.8 % 40.1-51.0 MEAN CORPUSCULAR VOLUME (BEAKER) (test bwlv=915) 101.4 fL 79.0-92.2 MEAN CORPUSCULAR HEMOGLOBIN (BEAKER) (test 33.5 pg 25.7-32.2 jxws=596) MEAN CORPUSCULAR HEMOGLOBIN CONC (BEAKER) (test 33.0 GM/DL 32.3-36.5 nnbk=080) RED CELL DISTRIBUTION WIDTH (BEAKER) (test 19.4 % 11.6-14.4 shuv=190) PLATELET COUNT (BEAKER) (test hndw=439) 65 K/CU MM 150-450 MEAN PLATELET VOLUME (BEAKER) (test unus=012) 8.8 fL 9.4-12.4 NUCLEATED RED BLOOD CELLS (BEAKER) (test 0 /100 WBC 0-0 khqm=929) NEUTROPHILS RELATIVE PERCENT (BEAKER) (test 66 % plkv=836) LYMPHOCYTES RELATIVE PERCENT (BEAKER) (test 14 % oege=774) MONOCYTES RELATIVE PERCENT (BEAKER) (test 15 % vyev=921) EOSINOPHILS RELATIVE PERCENT (BEAKER) (test 4 % xoza=099) BASOPHILS RELATIVE PERCENT (BEAKER) (test 0 % ozzu=501) NEUTROPHILS ABSOLUTE COUNT (BEAKER) (test 3.58 K/ L 1.78-5.38 envu=498) LYMPHOCYTES ABSOLUTE COUNT (BEAKER) (test 0.78 K/ L 1.32-3.57 ajda=145) MONOCYTES ABSOLUTE COUNT (BEAKER) (test vjhh=883) 0.79 K/ L 0.30-0.82 EOSINOPHILS ABSOLUTE COUNT (BEAKER) (test 0.23 K/ L 0.04-0.54 pcgm=596) BASOPHILS ABSOLUTE COUNT (BEAKER) (test wuhk=508) 0.02 K/ L 0.01-0.08 IMMATURE GRANULOCYTES-RELATIVE PERCENT (BEAKER) 1 % 0-1 (test mfnv=5943) RAD, KNEE, COMPLETE (4 VIEWS), [id number] 11:15:00Reason for exam:->FALL , PAINFINAL REPORT Bilateral [...] MDReport Verified Date/Time: 01/06/2018 11:15:08 Reading Location: [facility] Radiology Reading Room RAD, KNEE, COMPLETE (4 VIEWS), [id number] 11:15:00Reason for exam:->FALL, PAINFINAL REPORT Bilateral knee [...] MDReport Verified Date/Time: 01/06/2018 11:15:08 Reading Location: [facility] Radiology Reading Room CBC W/PLT COUNT & AUTO [id number] 10: 58:00 Test Item Value Reference Range Comments WHITE BLOOD CELL COUNT (BEAKER) (test wrwa=033) 2.9 K/ L 3.5-10.5 RED BLOOD CELL COUNT (BEAKER) (test tayl=149) 2.27 M/ L 4.63-6.08 HEMOGLOBIN (BEAKER) (test grbv=182) 7.1 GM/DL 13.7-17.5 HEMATOCRIT (BEAKER) (test bbua=821) 21.0 % 40.1-51.0 MEAN CORPUSCULAR VOLUME (BEAKER) (test ixkg=254) 92.5 fL 79.0-92.2 MEAN CORPUSCULAR HEMOGLOBIN (BEAKER) (test 31.3 pg 25.7-32.2 hhtf=228) MEAN CORPUSCULAR HEMOGLOBIN CONC (BEAKER) (test 33.8 GM/DL 32.3-36.5 kvxz=597) RED CELL DISTRIBUTION WIDTH (BEAKER) (test 17.2 % 11.6-14.4 tope=275) PLATELET COUNT (BEAKER) (test rufg=146) 42 K/CU MM 150-450 MEAN PLATELET VOLUME (BEAKER) (test ysjr=841) 10.1 fL 9.4-12.4 NUCLEATED RED BLOOD CELLS (BEAKER) (test 0 /100 WBC 0-0 uotg=127) NEUTROPHILS RELATIVE PERCENT (BEAKER) (test 77 % wgjz=694) LYMPHOCYTES RELATIVE PERCENT (BEAKER) (test 12 % zdrt=112) MONOCYTES RELATIVE PERCENT (BEAKER) (test 10 % tqnc=880) EOSINOPHILS RELATIVE PERCENT (BEAKER) (test 1 % nqpn=235) BASOPHILS RELATIVE PERCENT (BEAKER) (test 0 % qhrt=283) NEUTROPHILS ABSOLUTE COUNT (BEAKER) (test 2.21 K/ L 1.78-5.38 tbhj=350) LYMPHOCYTES ABSOLUTE COUNT (BEAKER) (test 0.33 K/ L 1.32-3.57 hefk=125) MONOCYTES ABSOLUTE COUNT (BEAKER) (test cmhj=489) 0.30 K/ L 0.30-0.82 EOSINOPHILS ABSOLUTE COUNT (BEAKER) (test 0.03 K/ L 0.04-0.54 iviq=405) BASOPHILS ABSOLUTE COUNT (BEAKER) (test klgn=455) 0.00 K/ L 0.01-0.08 IMMATURE GRANULOCYTES-RELATIVE PERCENT (BEAKER) 0 % 0-1 (test yxjg=7833) [id number] 06:06:00 Test Item Value Reference Range Comments PHOSPHORUS (BEAKER) (test polt=539) 3.6 mg/dL 2.3-4.7 [id number] 06:06:00 Test Item Value Reference Range Comments MAGNESIUM (BEAKER) (test thho=554) 2.0 mg/dL 1.6-2.6 BASIC METABOLIC [id number] 06:06:00 Test Item Value Reference Range Comments SODIUM (BEAKER) (test 130 meq/L 136-145 zacc=385) POTASSIUM (BEAKER) (test 4.4 meq/L 3.5-5.1 hdtf=191) CHLORIDE (BEAKER) (test 100 meq/L 98-107 xnzo=515) CO2 (BEAKER) (test 23 meq/L 22-29 help=026) BLOOD UREA NITROGEN 21 mg/dL 7-21 (BEAKER) (test ndzo=059) CREATININE (BEAKER) (test 1.11 mg/dL 0.57-1.25 duhb=806) GLUCOSE RANDOM (BEAKER) 120 mg/dL 70-105 (test jksa=088) CALCIUM (BEAKER) (test 9.4 mg/dL 8.4-10.2 ynfe=467) EGFR (BEAKER) (test 70 mL/min/1.73 sq m ESTIMATED GFR IS NOT bwfu=1827) ACCURATE CREATININE CLEARANCE IN PREDICTING GLOMERULAR FILTRATION RATE. ESTIMATED GFR IS NOT APPLICABLE FOR DIALYSIS PATIENTS. Specimen slightly ictericPROTHROMBIN [id number] 06:02:00 Test Item Value Reference Range Comments PROTIME (BEAKER) (test pbme=980) 22.9 seconds 11.7-14.7 INR (BEAKER) (test oszc=070) 2.0 <=5.9 RECOMMENDED COUMADIN/WARFARIN INR THERAPY RANGESSTANDARD DOSE: 2.0 - 3.0 Includes: PROPHYLAXIS forvenous thrombosis, systemic embolization; TREATMENT for venous thrombosis and/or pulmonary embolus.HIGH RISK: Target INR is 2.5-3.5 for patients with mechanical heart valves.CALCIUM, [id number] 06:01:00 Test Item Value Reference Range Comments CALCIUM IONIZED (BEAKER) (test lqgr=540) 1.11 mmol/L 1.12-1.27 PH, BLOOD (BEAKER) (test wegx=7540) 7.53 CORTISOL,60 [id number] 23:20:00 Test Item Value Reference Range Comments CORTISOL BASELINE NETWORKED (BEAKER) (test 4.8 mcg/dL ttom=8567) CORTISOL 30 MINUTE NETWORKED (BEAKER) (test 9.2 mcg/dL lkpd=5256) CORTISOL, 60 MINUTE (BEAKER) (test xfgf=8860) 12.6 ug/dL ACTH STIMULATION TEST INTERPRETATION GUIDELINES(Synonyms: [...] study by Mindy et al (NEVAEH 2000,283( 8):3803-45), the ACTH Stimulation Test provides important prognostic [...] serum cortisollevel 60 minutes after cosyntropin administration.CORTISOL,30 [id number] 22:35:00 Test Item Value Reference Range Comments CORTISOL BASELINE NETWORKED (BEAKER) (test 4.8 mcg/dL awrp=4496) CORTISOL, 30 MINUTE (BEAKER) (test enhm=7890) 9.2 ug/dL ACTH STIMULATION TEST INTERPRETATION GUIDELINES(Synonyms: [...] Draw serum cortisollevel 60 minutes after cosyntropin administration.CORTISOL,[id number] 22:35:00 Test Item Value Reference Range Comments CORTISOL, BASELINE (TUNG) (test zaku=0066) 4.8 ug/dL ACTH STIMULATION TEST INTERPRETATION GUIDELINES(Synonyms: [...] serum cortisollevel 60 minutes after cosyntropin administration.U/S, [id number] 17:54:00Reason for exam:->therapeuticFINAL REPORT History: Ascites. PROCEDURE: Following informed written consent,the patient's right lower quadrant was prepped and draped in the usual sterile manner. 2% lidocaine was given locally for anesthesia. No conscious sedation was administered. Using ultrasound guidance, a 5 [place] one-step catheter was advanced percutaneously into the [...] IMPRESSION: 1. Successful uncomplicated ultrasound-guided paracentesis. Signed: Karnia Rain Verified Date/Time: 01/05/2018 17: 54:16 Reading Location: [address] Ultrasound Reading Room [id number] 11:19:00 Test Item Value Reference Range Comments CORTISOL, TOTAL (BEAKER) (test xvzv=1777) 2.7 ug/dL 3.7-19.4 [id number] 10:21:00 Test Item Value Reference Range Comments PHOSPHORUS (BEAKER) (test lovl=510) 2.8 mg/dL 2.3-4.7 [id number] 10:21:00 Test Item Value Reference Range Comments MAGNESIUM (BEAKER) (test cncr=965) 1.9 mg/dL 1.6-2.6 BASIC METABOLIC [id number] 10:21:00 Test Item Value Reference Range Comments SODIUM (BEAKER) (test 127 meq/L 136-145 adzs=136) POTASSIUM (BEAKER) (test 5.0 meq/L 3.5-5.1 ozfj=464) CHLORIDE (BEAKER) (test 100 meq/L 98-107 ztko=221) CO2 (BEAKER) (test 22 meq/L 22-29 zioj=103) BLOOD UREA NITROGEN 25 mg/dL 7-21 (BEAKER) (test toqv=510) CREATININE (BEAKER) (test 1.17 mg/dL 0.57-1.25 fdyk=594) GLUCOSE RANDOM (BEAKER) 84 mg/dL 70-105 (test waaj=845) CALCIUM (BEAKER) (test 8.7 mg/dL 8.4-10.2 ritt=582) EGFR (BEAKER) (test 65 mL/min/1.73 sq m ESTIMATED GFR IS NOT gnxn=8761) ACCURATE CREATININE CLEARANCE IN PREDICTING GLOMERULAR FILTRATION RATE. ESTIMATED GFR IS NOT APPLICABLE FOR DIALYSIS PATIENTS. Specimen slightly ictericCBC W/PLT COUNT & AUTO [id number] 08:42 :00 Test Item Value Reference Range Comments WHITE BLOOD CELL COUNT (BEAKER) (test lvve=777) 2.7 K/ L 3.5-10.5 RED BLOOD CELL COUNT (BEAKER) (test jsbk=807) 2.33 M/ L 4.63-6.08 HEMOGLOBIN (BEAKER) (test hblc=738) 7.3 GM/DL 13.7-17.5 HEMATOCRIT (BEAKER) (test uwed=247) 22.0 % 40.1-51.0 MEAN CORPUSCULAR VOLUME (BEAKER) (test wixv=889) 94.4 fL 79.0-92.2 MEAN CORPUSCULAR HEMOGLOBIN (BEAKER) (test 31.3 pg 25.7-32.2 uwqa=364) MEAN CORPUSCULAR HEMOGLOBIN CONC (BEAKER) (test 33.2 GM/DL 32.3-36.5 dskr=667) RED CELL DISTRIBUTION WIDTH (BEAKER) (test 17.2 % 11.6-14.4 eeir=294) PLATELET COUNT (BEAKER) (test pzjn=118) 45 K/CU MM 150-450 MEAN PLATELET VOLUME (BEAKER) (test pixe=678) 9.3 fL 9.4-12.4 NUCLEATED RED BLOOD CELLS (BEAKER) (test 0 /100 WBC 0-0 ijyx=575) NEUTROPHILS RELATIVE PERCENT (BEAKER) (test 60 % keih=270) LYMPHOCYTES RELATIVE PERCENT (BEAKER) (test 17 % mevf=863) MONOCYTES RELATIVE PERCENT (BEAKER) (test 16 % fymr=590) EOSINOPHILS RELATIVE PERCENT (BEAKER) (test 6 % ozza=962) BASOPHILS RELATIVE PERCENT (BEAKER) (test 0 % qhnz=063) NEUTROPHILS ABSOLUTE COUNT (BEAKER) (test 1.63 K/ L 1.78-5.38 lilr=981) LYMPHOCYTES ABSOLUTE COUNT (BEAKER) (test 0.45 K/ L 1.32-3.57 hlcz=357) MONOCYTES ABSOLUTE COUNT (BEAKER) (test dubx=437) 0.44 K/ L 0.30-0.82 EOSINOPHILS ABSOLUTE COUNT (BEAKER) (test 0.16 K/ L 0.04-0.54 vszu=369) BASOPHILS ABSOLUTE COUNT (BEAKER) (test wkaf=227) 0.01 K/ L 0.01-0.08 IMMATURE GRANULOCYTES-RELATIVE PERCENT (BEAKER) 1 % 0-1 (test ezka=5776) (MANUAL DIFFERENTIAL)2018-01-05 08:42:00 Test Item Value Reference Range Comments TOTAL COUNTED (BEAKER) (test kwky=0452) WBC MORPHOLOGY (BEAKER) (test aunj=849) Normal PLT MORPHOLOGY (BEAKER) (test yfzy=206) Normal ANISOCYTOSIS (BEAKER) (test spbc=756) 1+ few CALCIUM, [id number] 08:10:00 Test Item Value Reference Range Comments CALCIUM IONIZED (BEAKER) (test cmmn=009) 1.08 mmol/L 1.12-1.27 PH, BLOOD (BEAKER) (test sjyb=4777) 7.44 PROTHROMBIN [id number] 07:12:00 Test Item Value Reference Range Comments PROTIME (BEAKER) (test yaxg=156) 22.4 seconds 11.7-14.7 INR (BEAKER) (test esko=796) 2.0 <=5.9 RECOMMENDED COUMADIN/WARFARIN INR THERAPY RANGESSTANDARD DOSE: 2.0 - 3.0 Includes: PROPHYLAXIS forvenous thrombosis, systemic embolization; TREATMENT for venous thrombosis and/or pulmonary embolus.HIGH RISK: Target INR is 2.5-3.5 for patients with mechanical heart valves.[id number] 17:54:00 Test Item Value Reference Range Comments SODIUM (BEAKER) (test rjis=684) 129 meq/L 136-145 POTASSIUM (BEAKER) (test lzif=678) 5.5 meq/L 3.5-5.1 CHLORIDE (BEAKER) (test ewka=208) 101 meq/L 98-107 CO2 (BEAKER) (test brgm=937) 26 meq/L 22-29 Call [id number] with resultsCBC (HEMOGRAM ONLY)2018-01-04 07:16:00 Test Item Value Reference Range Comments WHITE BLOOD CELL COUNT (BEAKER) (test pgsb=850) 2.9 K/ L 3.5-10.5 RED BLOOD CELL COUNT (BEAKER) (test enbn=735) 2.25 M/ L 4.63-6.08 HEMOGLOBIN (BEAKER) (test efuh=455) 7.3 GM/DL 13.7-17.5 HEMATOCRIT (BEAKER) (test sxgz=403) 21.3 % 40.1-51.0 MEAN CORPUSCULAR VOLUME (BEAKER) (test wwbw=416) 94.7 fL 79.0-92.2 MEAN CORPUSCULAR HEMOGLOBIN (BEAKER) (test 32.4 pg 25.7-32.2 shes=009) MEAN CORPUSCULAR HEMOGLOBIN CONC (BEAKER) (test 34.3 GM/DL 32.3-36.5 uqhq=882) RED CELL DISTRIBUTION WIDTH (BEAKER) (test 17.6 % 11.6-14.4 ywcm=085) PLATELET COUNT (BEAKER) (test riwd=650) 59 K/CU MM 150-450 MEAN PLATELET VOLUME (BEAKER) (test vvlw=135) 11.3 fL 9.4-12.4 NUCLEATED RED BLOOD CELLS (BEAKER) (test 0 /100 WBC 0-0 sfli=407) COMPREHENSIVE METABOLIC [id number] 06:49:00 Test Item Value Reference Range Comments TOTAL PROTEIN (BEAKER) 5.3 gm/dL 6.0-8.3 Specimen slightly (test tpxc=519) hemolyzed ALBUMIN (BEAKER) (test 3.3 g/dL 3.5-5.0 Specimen slightly rvfd=0807) hemolyzed ALKALINE PHOSPHATASE 81 U/L 40-150 (BEAKER) (test mqlb=959) BILIRUBIN TOTAL (BEAKER) 2.4 mg/dL 0.2-1.2 Specimen slightly (test mmsx=533) hemolyzed SODIUM (BEAKER) (test 127 meq/L 136-145 ynho=201) POTASSIUM (BEAKER) (test 5.7 meq/L 3.5-5.1 Specimen slightly qqnu=519) hemolyzed CHLORIDE (BEAKER) (test 100 meq/L 98-107 rkcy=890) CO2 (BEAKER) (test 20 meq/L 22-29 koha=598) BLOOD UREA NITROGEN 22 mg/dL 7-21 (BEAKER) (test zkuv=244) CREATININE (BEAKER) (test 1.14 mg/dL 0.57-1.25 Specimen slightly dkxx=121) hemolyzed GLUCOSE RANDOM (BEAKER) 96 mg/dL 70-105 (test bokr=506) CALCIUM (BEAKER) (test 8.9 mg/dL 8.4-10.2 yaxd=585) AST (SGOT) (BEAKER) (test 30 U/L 5-34 Specimen slightly xybh=001) hemolyzed ALT (SGPT) (BEAKER) (test 8 U/L 6-55 Specimen slightly plxi=410) hemolyzed EGFR (BEAKER) (test 67 mL/min/1.73 sq m ESTIMATED GFR IS NOT gxbp=1699) ACCURATE CREATININE CLEARANCE IN PREDICTING GLOMERULAR FILTRATION RATE. ESTIMATED GFR IS NOT APPLICABLE FOR DIALYSIS PATIENTS. Specimen slightly ictericPROTHROMBIN [id number] 06:15:00 Test Item Value Reference Range Comments PROTIME (BEAKER) (test aizl=610) 22.7 seconds 11.7-14.7 INR (BEAKER) (test uhvt=060) 2.0 <=5.9 RECOMMENDED COUMADIN/WARFARIN INR THERAPY RANGESSTANDARD DOSE: 2.0 - 3.0 Includes: PROPHYLAXIS forvenous thrombosis, systemic embolization; TREATMENT for venous thrombosis and/or pulmonary embolus.HIGH RISK: Target INR is 2.5-3.5 for patients with mechanical heart valves.VITAMIN B12 AND [id number] 16:39 :00 Test Item Value Reference Range Comments VITAMIN B12 (BEAKER) (test lqmx=662) 829 pg/mL 213-816 FOLATE (BEAKER) (test ytqp=623) 18.9 ng/mL >=7.0 CALCIUM, [id number] 07:14:00 Test Item Value Reference Range Comments CALCIUM IONIZED (BEAKER) (test padc=709) 1.08 mmol/L 1.12-1.27 PH, BLOOD (BEAKER) (test aykx=8429) 7.41 COMPREHENSIVE METABOLIC [id number] 07:00:00 Test Item Value Reference Range Comments TOTAL PROTEIN (BEAKER) 5.0 gm/dL 6.0-8.3 (test udia=974) ALBUMIN (BEAKER) (test 3.1 g/dL 3.5-5.0 xhmg=2498) ALKALINE PHOSPHATASE 65 U/L 40-150 (BEAKER) (test knke=643) BILIRUBIN TOTAL (BEAKER) 2.5 mg/dL 0.2-1.2 (test dlxr=984) SODIUM (BEAKER) (test 127 meq/L 136-145 ofdk=572) POTASSIUM (BEAKER) (test 4.7 meq/L 3.5-5.1 qszn=818) CHLORIDE (BEAKER) (test 99 meq/L 98-107 bdrg=503) CO2 (BEAKER) (test 23 meq/L 22-29 eauv=267) BLOOD UREA NITROGEN 21 mg/dL 7-21 (BEAKER) (test bopd=594) CREATININE (BEAKER) (test 1.13 mg/dL 0.57-1.25 herc=250) GLUCOSE RANDOM (BEAKER) 92 mg/dL 70-105 (test kubv=986) CALCIUM (BEAKER) (test 8.9 mg/dL 8.4-10.2 wonh=922) AST (SGOT) (BEAKER) (test 18 U/L 5-34 edwj=216) ALT (SGPT) (BEAKER) (test 8 U/L 6-55 quvf=409) EGFR (BEAKER) (test 68 mL/min/1.73 sq m ESTIMATED GFR IS NOT pxug=7230) ACCURATE CREATININE CLEARANCE IN PREDICTING GLOMERULAR FILTRATION RATE. ESTIMATED GFR IS NOT APPLICABLE FOR DIALYSIS PATIENTS. [id number] 06:37:00 Test Item Value Reference Range Comments PHOSPHORUS (BEAKER) (test tfyl=418) 3.2 mg/dL 2.3-4.7 [id number] 06:37:00 Test Item Value Reference Range Comments MAGNESIUM (BEAKER) (test dzyz=704) 1.9 mg/dL 1.6-2.6 CBC (HEMOGRAM ONLY)2018-01-03 06:25:00 Test Item Value Reference Range Comments WHITE BLOOD CELL COUNT (BEAKER) (test avob=052) 3.1 K/ L 3.5-10.5 RED BLOOD CELL COUNT (BEAKER) (test mwva=006) 2.31 M/ L 4.63-6.08 HEMOGLOBIN (BEAKER) (test xgpz=477) 7.4 GM/DL 13.7-17.5 HEMATOCRIT (BEAKER) (test onbw=380) 21.6 % 40.1-51.0 MEAN CORPUSCULAR VOLUME (BEAKER) (test umsj=090) 93.5 fL 79.0-92.2 MEAN CORPUSCULAR HEMOGLOBIN (BEAKER) (test 32.0 pg 25.7-32.2 kogp=517) MEAN CORPUSCULAR HEMOGLOBIN CONC (BEAKER) (test 34.3 GM/DL 32.3-36.5 botm=584) RED CELL DISTRIBUTION WIDTH (BEAKER) (test 17.4 % 11.6-14.4 jvwe=084) PLATELET COUNT (BEAKER) (test tbas=621) 50 K/CU MM 150-450 MEAN PLATELET VOLUME (BEAKER) (test wabm=897) 10.5 fL 9.4-12.4 NUCLEATED RED BLOOD CELLS (BEAKER) (test 0 /100 WBC 0-0 xiab=451) PROTHROMBIN [id number] 06:09:00 Test Item Value Reference Range Comments PROTIME (BEAKER) (test nunm=923) 22.2 seconds 11.7-14.7 INR (BEAKER) (test kbpd=269) 2.0 <=5.9 RECOMMENDED COUMADIN/WARFARIN INR THERAPY RANGESSTANDARD DOSE: 2.0 - 3.0 Includes: PROPHYLAXIS forvenous thrombosis, systemic embolization; TREATMENT for venous thrombosis and/or pulmonary embolus.HIGH RISK: Target INR is 2.5-3.5 for patients with mechanical heart valves.[id number] 07:54:00 Test Item Value Reference Range Comments PHOSPHORUS (BEAKER) (test kpzu=775) 3.2 mg/dL 2.3-4.7 [id number] 07:54:00 Test Item Value Reference Range Comments MAGNESIUM (BEAKER) (test thev=113) 1.4 mg/dL 1.6-2.6 COMPREHENSIVE METABOLIC [id number] 07:54:00 Test Item Value Reference Range Comments TOTAL PROTEIN (BEAKER) 5.3 gm/dL 6.0-8.3 (test pxrk=596) ALBUMIN (BEAKER) (test 3.4 g/dL 3.5-5.0 kzoy=6027) ALKALINE PHOSPHATASE 55 U/L 40-150 (BEAKER) (test pflp=898) BILIRUBIN TOTAL (BEAKER) 3.9 mg/dL 0.2-1.2 (test ulbu=511) SODIUM (BEAKER) (test 131 meq/L 136-145 sqav=555) POTASSIUM (BEAKER) (test 4.3 meq/L 3.5-5.1 njae=164) CHLORIDE (BEAKER) (test 101 meq/L 98-107 jbxc=938) CO2 (BEAKER) (test 23 meq/L 22-29 ofpk=110) BLOOD UREA NITROGEN 19 mg/dL 7-21 (BEAKER) (test qwea=373) CREATININE (BEAKER) (test 0.97 mg/dL 0.57-1.25 brxn=861) GLUCOSE RANDOM (BEAKER) 80 mg/dL 70-105 (test uecf=420) CALCIUM (BEAKER) (test 9.4 mg/dL 8.4-10.2 iitz=737) AST (SGOT) (BEAKER) (test 17 U/L 5-34 hgqv=770) ALT (SGPT) (BEAKER) (test 8 U/L 6-55 vptc=509) EGFR (BEAKER) (test 81 mL/min/1.73 sq m ESTIMATED GFR IS NOT tvdn=7959) ACCURATE CREATININE CLEARANCE IN PREDICTING GLOMERULAR FILTRATION RATE. ESTIMATED GFR IS NOT APPLICABLE FOR DIALYSIS PATIENTS. Specimen slightly ictericCBC W/PLT COUNT & AUTO [id number] 07:14 :00 Test Item Value Reference Range Comments WHITE BLOOD CELL COUNT (BEAKER) (test ondn=975) 2.9 K/ L 3.5-10.5 RED BLOOD CELL COUNT (BEAKER) (test amlv=382) 2.55 M/ L 4.63-6.08 HEMOGLOBIN (BEAKER) (test zgwe=234) 8.1 GM/DL 13.7-17.5 HEMATOCRIT (BEAKER) (test ppmz=106) 23.7 % 40.1-51.0 MEAN CORPUSCULAR VOLUME (BEAKER) (test nvjs=961) 92.9 fL 79.0-92.2 MEAN CORPUSCULAR HEMOGLOBIN (BEAKER) (test 31.8 pg 25.7-32.2 gcav=921) MEAN CORPUSCULAR HEMOGLOBIN CONC (BEAKER) (test 34.2 GM/DL 32.3-36.5 doie=599) RED CELL DISTRIBUTION WIDTH (BEAKER) (test 17.5 % 11.6-14.4 dbmt=644) PLATELET COUNT (BEAKER) (test bszo=971) 50 K/CU MM 150-450 MEAN PLATELET VOLUME (BEAKER) (test cqnq=205) 9.5 fL 9.4-12.4 NUCLEATED RED BLOOD CELLS (BEAKER) (test 0 /100 WBC 0-0 ssyr=154) NEUTROPHILS RELATIVE PERCENT (BEAKER) (test 57 % vnvb=975) LYMPHOCYTES RELATIVE PERCENT (BEAKER) (test 17 % wrqi=263) MONOCYTES RELATIVE PERCENT (BEAKER) (test 18 % xyyb=232) EOSINOPHILS RELATIVE PERCENT (BEAKER) (test 7 % cnla=502) BASOPHILS RELATIVE PERCENT (BEAKER) (test 0 % qpbf=244) NEUTROPHILS ABSOLUTE COUNT (BEAKER) (test 1.65 K/ L 1.78-5.38 kwht=203) LYMPHOCYTES ABSOLUTE COUNT (BEAKER) (test 0.49 K/ L 1.32-3.57 cuvo=596) MONOCYTES ABSOLUTE COUNT (BEAKER) (test bshz=817) 0.51 K/ L 0.30-0.82 EOSINOPHILS ABSOLUTE COUNT (BEAKER) (test 0.20 K/ L 0.04-0.54 ffgf=513) BASOPHILS ABSOLUTE COUNT (BEAKER) (test atjn=721) 0.01 K/ L 0.01-0.08 IMMATURE GRANULOCYTES-RELATIVE PERCENT (BEAKER) 1 % 0-1 (test wxed=4519) (MANUAL DIFFERENTIAL)2018-01-02 07:14:00 Test Item Value Reference Range Comments TOTAL COUNTED (BEAKER) (test cflv=5732) CALCIUM, [id number] 07:04:00 Test Item Value Reference Range Comments CALCIUM IONIZED (BEAKER) (test rcer=931) 1.07 mmol/L 1.12-1.27 PH, BLOOD (BEAKER) (test icdy=1154) 7.49 PROTHROMBIN [id number] 06:42:00 Test Item Value Reference Range Comments PROTIME (BEAKER) (test eoly=096) 24.6 seconds 11.7-14.7 INR (BEAKER) (test ghgn=760) 2.2 <=5.9 RECOMMENDED COUMADIN/WARFARIN INR THERAPY RANGESSTANDARD DOSE: 2.0 - 3.0 Includes: PROPHYLAXIS forvenous thrombosis, systemic embolization; TREATMENT for venous thrombosis and/or pulmonary embolus.HIGH RISK: Target INR is 2.5-3.5 for patients with mechanical heart valves.CYTOMEGALOVIRUS ANTIBODY, [id number] 14:58:00 Test Item Value Reference Range Comments CYTOMEGALOVIRUS IGG ANTIBODY (BEAKER) (test Positive zcyk=918) CYTOMEGALOVIRUS ANTIBODY, [id number] 14:58:00 Test Item Value Reference Range Comments CYTOMEGALOVIRUS IGM ANTIBODY (BEAKER) (test Negative bxdj=572) EBV-VCA ANTIBODY, [id number] 14:58:00 Test Item Value Reference Range Comments MARCELLUS-DAVIS VCA IGG (BEAKER) (test twli=408) Positive EBV-VCA ANTIBODY, [id number] 14:58:00 Test Item Value Reference Range Comments MARCELLUS-DAVIS VCA IGM (BEAKER) (test ecsu=541) Negative BODY FLUID CELL COUNT WITH [id number] 14:27:00 Test Item Value Reference Range Comments APPEARANCE FLUID (BEAKER) (test lqwo=482) Slightly Hazy Clear COLOR FLUID (BEAKER) (test chci=473) Yellow Colorless, Straw RBC FLUID (BEAKER) (test vuau=935) 378 /cu mm <=1 ADJUSTED WBC FLUID (BEAKER) (test iqfb=5175) 84 /cu mm <=5 LINING CELLS (BEAKER) (test rwbg=5975) 17 /cu mm <=1 NEUTROPHILS FLUID (BEAKER) (test xbtx=9012) 1 % LYMPHS FLUID (BEAKER) (test xzzv=613) 14 % MONO/MACROPHAGE FLUID (BEAKER) (test 85 % oryp=132) EOSINOPHILS FLUID (BEAKER) (test ukeb=441) 0 % BASO FLUID (BEAKER) (test vwon=396) 0 % CONTAINER BODY FLUID (BEAKER) (test EDTA Tube ojlu=8856) U/S, [id number] 11:17:00Reason for exam:->ascitesFINAL REPORT Ultrasound guided paracentesis, 01/01/2018. Clinical History:Ascites. Sedation: None. Retail Personal Banker: Paul Bulter MD Iron Erector: None. Estimated Blood Loss: < 1 cc. [...] was achieved with 1% lidocaine, a 5 [place] one-step catheter was advanced into the peritoneal cavity under ultrasound guidance. After completion of drainage, the catheter was removed. There was no evidence ofcomplication. Patient Disposition: The patient was transferred to the inpatient unit from the ultrasound department after the paracentesis, in good condition. Impression:Successful ultrasound guided paracentesis. Signed: [facility] Verified Date/Time: 01/01/2018 11:17:26 Reading Location: [address] Ultrasound Reading Room CBC W/PLT COUNT & AUTO [id number] 08:55:00 Test Item Value Reference Range Comments WHITE BLOOD CELL COUNT (BEAKER) (test qsly=664) 2.6 K/ L 3.5-10.5 RED BLOOD CELL COUNT (BEAKER) (test mzav=759) 2.17 M/ L 4.63-6.08 HEMOGLOBIN (BEAKER) (test ohrh=707) 6.9 GM/DL 13.7-17.5 HEMATOCRIT (BEAKER) (test humj=415) 20.6 % 40.1-51.0 MEAN CORPUSCULAR VOLUME (BEAKER) (test lkqt=193) 94.9 fL 79.0-92.2 MEAN CORPUSCULAR HEMOGLOBIN (BEAKER) (test 31.8 pg 25.7-32.2 bnwn=165) MEAN CORPUSCULAR HEMOGLOBIN CONC (BEAKER) (test 33.5 GM/DL 32.3-36.5 wkqa=413) RED CELL DISTRIBUTION WIDTH (BEAKER) (test 17.0 % 11.6-14.4 qkbe=941) PLATELET COUNT (BEAKER) (test jqjf=465) 43 K/CU MM 150-450 MEAN PLATELET VOLUME (BEAKER) (test rywi=664) 9.3 fL 9.4-12.4 NUCLEATED RED BLOOD CELLS (BEAKER) (test 0 /100 WBC 0-0 nhcr=709) NEUTROPHILS RELATIVE PERCENT (BEAKER) (test 62 % hvgz=286) LYMPHOCYTES RELATIVE PERCENT (BEAKER) (test 13 % jpop=846) MONOCYTES RELATIVE PERCENT (BEAKER) (test 18 % nwst=045) EOSINOPHILS RELATIVE PERCENT (BEAKER) (test 6 % pwcu=946) BASOPHILS RELATIVE PERCENT (BEAKER) (test 0 % feut=498) NEUTROPHILS ABSOLUTE COUNT (BEAKER) (test 1.58 K/ L 1.78-5.38 ntec=857) LYMPHOCYTES ABSOLUTE COUNT (BEAKER) (test 0.33 K/ L 1.32-3.57 aakv=648) MONOCYTES ABSOLUTE COUNT (BEAKER) (test hatv=083) 0.46 K/ L 0.30-0.82 EOSINOPHILS ABSOLUTE COUNT (BEAKER) (test 0.15 K/ L 0.04-0.54 bjam=580) BASOPHILS ABSOLUTE COUNT (BEAKER) (test ezpt=598) 0.01 K/ L 0.01-0.08 IMMATURE GRANULOCYTES-RELATIVE PERCENT (BEAKER) 1 % 0-1 (test feyo=6251) (MANUAL DIFFERENTIAL)2018-01-01 08:55:00 Test Item Value Reference Range Comments TOTAL COUNTED (BEAKER) (test wuzn=3171) CALCIUM, [id number] 07:43:00 Test Item Value Reference Range Comments CALCIUM IONIZED (BEAKER) (test mmzd=775) 1.14 mmol/L 1.12-1.27 PH, BLOOD (BEAKER) (test qhsf=5028) 7.52 [id number] 06:11:00 Test Item Value Reference Range Comments PHOSPHORUS (BEAKER) (test wwkh=998) 2.5 mg/dL 2.3-4.7 [id number] 06:11:00 Test Item Value Reference Range Comments MAGNESIUM (BEAKER) (test gtgg=967) 1.7 mg/dL 1.6-2.6 COMPREHENSIVE METABOLIC [id number] 06:11:00 Test Item Value Reference Range Comments TOTAL PROTEIN (BEAKER) 5.6 gm/dL 6.0-8.3 (test aiep=745) ALBUMIN (BEAKER) (test 3.6 g/dL 3.5-5.0 ghhn=2821) ALKALINE PHOSPHATASE 68 U/L 40-150 (BEAKER) (test rrcn=682) BILIRUBIN TOTAL (BEAKER) 2.7 mg/dL 0.2-1.2 (test ybxl=602) SODIUM (BEAKER) (test 132 meq/L 136-145 rdti=943) POTASSIUM (BEAKER) (test 4.9 meq/L 3.5-5.1 nxeo=872) CHLORIDE (BEAKER) (test 102 meq/L 98-107 ckyn=762) CO2 (BEAKER) (test 24 meq/L 22-29 wfam=445) BLOOD UREA NITROGEN 20 mg/dL 7-21 (BEAKER) (test yvcb=175) CREATININE (BEAKER) (test 1.17 mg/dL 0.57-1.25 enev=710) GLUCOSE RANDOM (BEAKER) 92 mg/dL 70-105 (test vthv=061) CALCIUM (BEAKER) (test 9.7 mg/dL 8.4-10.2 psmq=621) AST (SGOT) (BEAKER) (test 16 U/L 5-34 xpht=898) ALT (SGPT) (BEAKER) (test 8 U/L 6-55 gddk=909) EGFR (BEAKER) (test 65 mL/min/1.73 sq m ESTIMATED GFR IS NOT ktxq=5584) ACCURATE CREATININE CLEARANCE IN PREDICTING GLOMERULAR FILTRATION RATE. ESTIMATED GFR IS NOT APPLICABLE FOR DIALYSIS PATIENTS. Specimen slightly ictericPROTHROMBIN [id number] 06:00:00 Test Item Value Reference Range Comments PROTIME (TUNG) (test avhe=251) 24.0 seconds 11.7-14.7 INR (TUNG) (test axxt=135) 2.2 <=5.9 RECOMMENDED COUMADIN/WARFARIN INR THERAPY RANGESSTANDARD DOSE: 2.0 - 3.0 Includes: PROPHYLAXIS forvenous thrombosis, systemic embolization; TREATMENT for venous thrombosis and/or pulmonary embolus.HIGH RISK: Target INR is 2.5-3.5 for patients with mechanical heart valves.CT, CHEST, WITHOUT [id number] 19:24:00FINAL REPORT HISTORY: Lung nodule, >=1cm COMPARISON [...] MDReport Verified Date/Time: 12/31/2017 19:24:12 Reading Location: [facility] [id number] Consult Reading Room 07: 24 PMPERIPHERAL BLOOD SMEAR - HOLD [id number] 19:18:00 Test Item Value Reference Range Comments PERIPHERAL SMEAR SAVE (BEAKER) prepared and saved smear, (test wocm=6078) 12/31/17 RETICULOCYTE [id number] 19:14:00 Test Item Value Reference Range Comments RETICULOCYTE COUNT PCT (BEAKER) (test wwbw=085) 3.5 % 0.5-1.8 LACTATE DEHYDROGENASE (LDH)2017-12-31 17:47:00 Test Item Value Reference Range Comments LACTATE DEHYDROGENASE (BEAKER) (test lavc=731) 112 U/L 125-220 BLOOD GAS, [id number] 17:27:00 Test Item Value Reference Range Comments PH ARTERIAL (BEAKER) (test ewwz=652) 7.45 7.35-7.45 PCO2 ARTERIAL (BEAKER) (test hpmj=731) 36 mmHg 35-45 PO2 ARTERIAL (BEAKER) (test mjrb=578) 76 mmHg 80-90 O2 SATURATION ARTERIAL (BEAKER) (test uyjg=599) 96.1 % 96.0-97.0 HCO3 ARTERIAL (BEAKER) (test hybl=432) 24 mmol/L 21-29 BASE EXCESS ARTERIAL (BEAKER) (test nakz=738) 0.2 mmol/L -2.0-3.0 PATIENT TEMPERATURE (BEAKER) (test appz=4893) 36.4 C FIO2 (BEAKER) (test vrae=3360) 21.0 % MYOCARD IMAGING, MULTI, PHARM, [id number] 15:12:00FINAL REPORT PROCEDURE: Rest/Stress MYOCARDIAL PERFUSION SPECT with regadenoson\\XA9\\ CPT CODE: 51993 INDICATION: Liver transplant evaluation HISTORY: Cardiac risk [...] [place] Verified Date/Time: 12/31/2017 15:12:03 Reading Location: [address] Reading Room BILIRUBIN, [id number] 14:10:00 Test Item Value Reference Range Comments BILIRUBIN DIRECT (BEAKER) (test qbtc=635) 1.6 mg/dL 0.1-0.5 HEMOGLOBIN AND [id number] 13:22:00 Test Item Value Reference Range Comments HEMOGLOBIN (BEAKER) (test ygyb=219) 7.3 GM/DL 13.7-17.5 HEMATOCRIT (BEAKER) (test hgxw=296) 21.9 % 40.1-51.0 CBC W/PLT COUNT & AUTO [id number] 11:06:00 Test Item Value Reference Range Comments WHITE BLOOD CELL COUNT (BEAKER) (test drqi=165) 2.2 K/ L 3.5-10.5 RED BLOOD CELL COUNT (BEAKER) (test dhem=726) 2.07 M/ L 4.63-6.08 HEMOGLOBIN (BEAKER) (test kttt=289) 6.8 GM/DL 13.7-17.5 HEMATOCRIT (BEAKER) (test cpsk=434) 19.6 % 40.1-51.0 MEAN CORPUSCULAR VOLUME (BEAKER) (test slqu=546) 94.7 fL 79.0-92.2 MEAN CORPUSCULAR HEMOGLOBIN (BEAKER) (test 32.9 pg 25.7-32.2 fzum=787) MEAN CORPUSCULAR HEMOGLOBIN CONC (BEAKER) (test 34.7 GM/DL 32.3-36.5 eufl=133) RED CELL DISTRIBUTION WIDTH (BEAKER) (test 16.9 % 11.6-14.4 hgia=529) PLATELET COUNT (BEAKER) (test zwyx=515) 47 K/CU MM 150-450 MEAN PLATELET VOLUME (BEAKER) (test zqrv=663) 9.7 fL 9.4-12.4 NUCLEATED RED BLOOD CELLS (BEAKER) (test 0 /100 WBC 0-0 wjgn=635) NEUTROPHILS RELATIVE PERCENT (BEAKER) (test 54 % flie=183) LYMPHOCYTES RELATIVE PERCENT (BEAKER) (test 17 % nths=614) MONOCYTES RELATIVE PERCENT (BEAKER) (test 21 % kdnh=839) EOSINOPHILS RELATIVE PERCENT (BEAKER) (test 8 % oxga=055) BASOPHILS RELATIVE PERCENT (BEAKER) (test 1 % pncr=092) NEUTROPHILS ABSOLUTE COUNT (BEAKER) (test 1.17 K/ L 1.78-5.38 lnhh=089) LYMPHOCYTES ABSOLUTE COUNT (BEAKER) (test 0.36 K/ L 1.32-3.57 uhtf=452) MONOCYTES ABSOLUTE COUNT (BEAKER) (test viit=395) 0.45 K/ L 0.30-0.82 EOSINOPHILS ABSOLUTE COUNT (BEAKER) (test 0.17 K/ L 0.04-0.54 bwwy=230) BASOPHILS ABSOLUTE COUNT (BEAKER) (test semh=964) 0.01 K/ L 0.01-0.08 IMMATURE GRANULOCYTES-RELATIVE PERCENT (BEAKER) 1 % 0-1 (test wmqt=0904) (MANUAL DIFFERENTIAL)2017-12-31 11:06:00 Test Item Value Reference Range Comments TOTAL COUNTED (BEAKER) (test luxx=0284) [id number] 08:37:00 Test Item Value Reference Range Comments PROTIME (BEAKER) (test haik=569) 24.0 seconds 11.7-14.7 INR (BEAKER) (test hfkq=168) 2.2 <=5.9 PARTIAL THROMBOPLASTIN TIME (BEAKER) (test 55.2 seconds 22.5-36.0 epye=110) RECOMMENDED COUMADIN/WARFARIN INR THERAPY RANGESSTANDARD DOSE: 2.0 - 3.0 Includes: PROPHYLAXIS forvenous thrombosis, systemic embolization; TREATMENT for venous thrombosis and/or pulmonary embolus.HIGH RISK: Target INR is 2.5-3.5 for patients with mechanical heart valves.COMPREHENSIVE METABOLIC [id number] 06:37:00 Test Item Value Reference Range Comments TOTAL PROTEIN (BEAKER) 5.7 gm/dL 6.0-8.3 (test gcpb=728) ALBUMIN (BEAKER) (test 3.7 g/dL 3.5-5.0 zhsi=6750) ALKALINE PHOSPHATASE 70 U/L 40-150 (BEAKER) (test jilx=120) BILIRUBIN TOTAL (BEAKER) 2.6 mg/dL 0.2-1.2 (test ynua=748) SODIUM (BEAKER) (test 130 meq/L 136-145 czug=133) POTASSIUM (BEAKER) (test 5.2 meq/L 3.5-5.1 bslg=208) CHLORIDE (BEAKER) (test 100 meq/L 98-107 qmqv=222) CO2 (BEAKER) (test 25 meq/L 22-29 jcuu=428) BLOOD UREA NITROGEN 20 mg/dL 7-21 (BEAKER) (test xacr=371) CREATININE (BEAKER) (test 1.08 mg/dL 0.57-1.25 hsbu=640) GLUCOSE RANDOM (BEAKER) 91 mg/dL 70-105 (test rmdw=113) CALCIUM (BEAKER) (test 9.6 mg/dL 8.4-10.2 sufn=177) AST (SGOT) (BEAKER) (test 16 U/L 5-34 xeue=046) ALT (SGPT) (BEAKER) (test 6 U/L 6-55 ekqr=563) EGFR (BEAKER) (test 72 mL/min/1.73 sq m ESTIMATED GFR IS NOT aobw=7654) ACCURATE CREATININE CLEARANCE IN PREDICTING GLOMERULAR FILTRATION RATE. ESTIMATED GFR IS NOT APPLICABLE FOR DIALYSIS PATIENTS. Specimen slightly [id number] 06:01:00 Test Item Value Reference Range Comments RPR SCREEN (BEAKER) (test uwzv=025) Nonreactive Nonreactive CRYPTOCOCCAL [id number] 05:59:00 Test Item Value Reference Range Comments CRYPTOCOCCAL ANTIGEN, SERUM (BEAKER) (test Negative Negative, Interference vsqn=3063) RAD, MANDIBLE, MIN 4 [id number] 01:37:00Reason for exam:->liver transplant evalShould this be [...] [place] Verified Date/Time: 12/31/2017 01:37:57 Reading Location: [address] Reading Room Electronically signed by: SLICK BARCENAS M.D. on 04/2018 01:37 AMRAD, CHEST, 2 [id number] 23:32:00Reason for exam:-> liver transplant evalShould this [...] [place] Verified Date/Time: 12/30/2017 23:32:31 Reading Location: [address] Reading Room HEMOGLOBIN [id number] 22:54:00 Test Item Value Reference Range Comments HEMOGLOBIN A1C (BEAKER) (test cejx=723) 4.1 % 4.3-6.1 HEPATITIS B SURFACE [id number] 16:31:00 Test Item Value Reference Range Comments HEPATITIS B SURFACE ANTIBODY (BEAKER) (test < mIU/mL <8.0 gpnp=308) HEPATITIS B SURFACE [id number] 16:29:00 Test Item Value Reference Range Comments HEPATITIS B SURFACE ANTIGEN (2) (BEAKER) (test Nonreactive Nonreactive fywa=2818) HEPATITIS B CORE ANTIBODY, [id number] 16:29:00 Test Item Value Reference Range Comments HEPATITIS B CORE IGM ANTIBODY (BEAKER) (test Nonreactive Nonreactive mnuf=567) HEPATITIS A ANTIBODY, [id number] 16:29:00 Test Item Value Reference Range Comments HEPATITIS A IGM ANTIBODY (BEAKER) (test Nonreactive Nonreactive jwjp=498) HEPATITIS B CORE ANTIBODY, [id number] 16:29:00 Test Item Value Reference Range Comments HEPATITIS B CORE TOTAL ANTIBODY (BEAKER) (test Nonreactive Nonreactive nfmx=832) [id number] 16:26:00 Test Item Value Reference Range Comments T4 TOTAL (BEAKER) (test ihfk=143) 3.5 ug/dL 4.9-11.7 [id number] 16:26:00 Test Item Value Reference Range Comments T3 TOTAL (BEAKER) (test zxxh=221) 42 ng/dL 48-159 [id number] 16:24:00 Test Item Value Reference Range Comments FERRITIN (BEAKER) (test fdlj=052) 1460 ng/mL 5-275 VITAMIN D, [id number] 16:24:00 Test Item Value Reference Range Comments VITAMIN D 25-OH (BEAKER) (test qyoh=3391) 6.9 ng/mL 6.6-49.9 Effective 08/06/2017: Reference Range ChangeNew: 6.6-49.9 ng/mL Previous: 13.0 -47.8 ng/mLRecommended Vitamin D Target Range: 30.0-40.0 ng/[id number] 16: 24:00 Test Item Value Reference Range Comments THYROID STIMULATING HORMONE (BEAKER) (test 1.55 uIU/mL 0.35-4.94 euvr=238) CARCINOEMBRYONIC ANTIGEN (CEA)2017-12-30 16:24:00 Test Item Value Reference Range Comments CARCINOEMBRYONIC ANTIGEN (BEAKER) (test bowf=318) 3.0 ng/mL 0.0-5.0 [id number] 16:23:00 Test Item Value Reference Range Comments PROSTATE SPECIFIC ANTIGEN (BEAKER) (test tlqe=864) 0.1 ng/mL 0.0-4.0 HIV-1 ANTIGEN WITH HIV-1/2 [id number] 16:23:00 Test Item Value Reference Range Comments HIV-1 ANTIGEN WITH HIV 1\\T\\2 ANTIBODY (2) Nonreactive Nonreactive (BEAKER) (test uhuu=6295) HEPATITIS C [id number] 16:23:00 Test Item Value Reference Range Comments HEPATITIS C ANTIBODY (BEAKER) (test eypm=511) Nonreactive Nonreactive LIPID [id number] 16:06:00 Test Item Value Reference Range Comments TRIGLYCERIDES (BEAKER) (test etdx=270) 38 mg/dL CHOLESTEROL (BEAKER) (test hmra=304) 51 mg/dL HDL CHOLESTEROL (BEAKER) (test taps=696) 10 mg/dL LDL CHOLESTEROL CALCULATED (BEAKER) (test msaq=063) 33 mg/dL Triglyceride Reference Range: Low Risk [...] Value Reference Range Comments IRON (BEAKER) (test bgji=877) 90 ug/dL 40-160 TOTAL IRON BINDING CAPACITY (BEAKER) (test 85 ug/dL 250-450 rqab=938) IRON % SATURATION (2) (BEAKER) (test nnmp=9861) 106 % 20-55 [id number] 16:04:00 Test Item Value Reference Range Comments TRANSFERRIN (BEAKER) (test pauf=929) 65 mg/dL 174-382 Specimen slightly ictericURIC [id number] 16:02:00 Test Item Value Reference Range Comments URIC ACID (BEAKER) (test eben=496) 8.5 mg/dL 2.6-7.2 Specimen slightly [id number] 15:50:00 Test Item Value Reference Range Comments FIBRINOGEN LEVEL (BEAKER) (test hsoq=089) 161 mg/dl 225-434 BODY FLUID CULTURE + GRAM [id number] 11:45:00 Test Item Value Reference Range Comments CULTURE (BEAKER) (test rqok=0621) No growth GRAM STAIN RESULT (BEAKER) (test No WBCs ziyj=9982) GRAM STAIN RESULT (BEAKER) (test No organisms seen axvs=17742) CBC W/PLT COUNT & AUTO [id number] 08:05:00 Test Item Value Reference Range Comments WHITE BLOOD CELL COUNT (BEAKER) (test rehk=461) 2.0 K/ L 3.5-10.5 RED BLOOD CELL COUNT (BEAKER) (test hypf=699) 2.20 M/ L 4.63-6.08 HEMOGLOBIN (BEAKER) (test vska=665) 7.1 GM/DL 13.7-17.5 HEMATOCRIT (BEAKER) (test bwiq=663) 20.8 % 40.1-51.0 MEAN CORPUSCULAR VOLUME (BEAKER) (test rigd=286) 94.5 fL 79.0-92.2 MEAN CORPUSCULAR HEMOGLOBIN (BEAKER) (test 32.3 pg 25.7-32.2 ygnm=127) MEAN CORPUSCULAR HEMOGLOBIN CONC (BEAKER) (test 34.1 GM/DL 32.3-36.5 jyee=035) RED CELL DISTRIBUTION WIDTH (BEAKER) (test 17.0 % 11.6-14.4 rndz=210) PLATELET COUNT (BEAKER) (test epwi=909) 52 K/CU MM 150-450 MEAN PLATELET VOLUME (BEAKER) (test bywl=376) 10.7 fL 9.4-12.4 NUCLEATED RED BLOOD CELLS (BEAKER) (test 0 /100 WBC 0-0 myds=525) NEUTROPHILS RELATIVE PERCENT (BEAKER) (test 55 % iock=898) LYMPHOCYTES RELATIVE PERCENT (BEAKER) (test 16 % ruxq=367) MONOCYTES RELATIVE PERCENT (BEAKER) (test 20 % mhvi=760) EOSINOPHILS RELATIVE PERCENT (BEAKER) (test 8 % nvno=378) BASOPHILS RELATIVE PERCENT (BEAKER) (test 1 % srhc=576) NEUTROPHILS ABSOLUTE COUNT (BEAKER) (test 1.10 K/ L 1.78-5.38 vrkq=204) LYMPHOCYTES ABSOLUTE COUNT (BEAKER) (test 0.32 K/ L 1.32-3.57 vgvj=636) MONOCYTES ABSOLUTE COUNT (BEAKER) (test wnul=629) 0.40 K/ L 0.30-0.82 EOSINOPHILS ABSOLUTE COUNT (BEAKER) (test 0.16 K/ L 0.04-0.54 accl=938) BASOPHILS ABSOLUTE COUNT (BEAKER) (test kmpf=539) 0.01 K/ L 0.01-0.08 IMMATURE GRANULOCYTES-RELATIVE PERCENT (BEAKER) 1 % 0-1 (test rbmb=8815) (MANUAL DIFFERENTIAL)2017-12-30 08:05:00 Test Item Value Reference Range Comments TOTAL COUNTED (BEAKER) (test jkkv=8936) URINALYSIS W/ [id number] 06:46:00 Test Item Value Reference Range Comments COLOR (BEAKER) (test zkor=313) Yellow CLARITY (BEAKER) (test gwui=556) Clear SPECIFIC GRAVITY UA (BEAKER) (test luur=107) 1.008 1.001-1.035 PH UA (BEAKER) (test xnle=149) 6.0 5.0-8.0 PROTEIN UA (BEAKER) (test jdgb=175) Negative Negative GLUCOSE UA (BEAKER) (test viya=841) Negative Negative KETONES UA (BEAKER) (test lnvz=442) Negative Negative BILIRUBIN UA (BEAKER) (test hnmh=953) Negative Negative BLOOD UA (BEAKER) (test pnhz=066) Negative Negative NITRITE UA (BEAKER) (test xlgw=885) Negative Negative LEUKOCYTE ESTERASE UA (BEAKER) (test beef=943) Negative Negative UROBILINOGEN UA (BEAKER) (test otkn=075) 0.2 mg/dL 0.2-1.0 RBC UA (BEAKER) (test qffr=270) 0 /HPF WBC UA (BEAKER) (test ndkx=169) 0 /HPF HYALINE CASTS (BEAKER) (test ddhj=416) 5 /LPF SOURCE(BEAKER) (test vlrr=7789) Urine, Voided SODIUM, RANDOM [id number] 06:35:00 Test Item Value Reference Range Comments SODIUM URINE (BEAKER) (test qjcm=361) < meq/L Reference Range: No NormalsPROTEIN, RANDOM [id number] 06:35:00 Test Item Value Reference Range Comments PROTEIN, URINE (BEAKER) (test yifi=8832) < mg/dL 0-14 [id number] 06:21:00 Test Item Value Reference Range Comments MAGNESIUM (BEAKER) (test 1.8 mg/dL 1.6-2.6 Specimen slightly hemolyzed eqka=033) [id number] 06:21:00 Test Item Value Reference Range Comments PHOSPHORUS (BEAKER) (test 2.9 mg/dL 2.3-4.7 Specimen slightly hemolyzed ewvy=893) COMPREHENSIVE METABOLIC [id number] 06:21:00 Test Item Value Reference Range Comments TOTAL PROTEIN (BEAKER) 5.6 gm/dL 6.0-8.3 Specimen slightly (test plcq=460) hemolyzed ALBUMIN (BEAKER) (test 3.5 g/dL 3.5-5.0 Specimen slightly spwe=8835) hemolyzed ALKALINE PHOSPHATASE 75 U/L 40-150 (BEAKER) (test osja=417) BILIRUBIN TOTAL (BEAKER) 3.0 mg/dL 0.2-1.2 Specimen slightly (test fqap=359) hemolyzed SODIUM (BEAKER) (test 127 meq/L 136-145 glki=204) POTASSIUM (BEAKER) (test 5.2 meq/L 3.5-5.1 Specimen slightly orps=227) hemolyzed CHLORIDE (BEAKER) (test 97 meq/L 98-107 ohoe=565) CO2 (BEAKER) (test 24 meq/L 22-29 eksb=197) BLOOD UREA NITROGEN 22 mg/dL 7-21 (BEAKER) (test sarh=403) CREATININE (BEAKER) (test 1.11 mg/dL 0.57-1.25 Specimen slightly zrfb=451) hemolyzed GLUCOSE RANDOM (BEAKER) 94 mg/dL 70-105 (test mfsa=044) CALCIUM (BEAKER) (test 9.4 mg/dL 8.4-10.2 barm=451) AST (SGOT) (BEAKER) (test 22 U/L 5-34 Specimen slightly ndtm=462) hemolyzed ALT (SGPT) (BEAKER) (test 7 U/L 6-55 Specimen slightly vpay=790) hemolyzed EGFR (BEAKER) (test 70 mL/min/1.73 sq m ESTIMATED GFR IS NOT daoh=0881) ACCURATE CREATININE CLEARANCE IN PREDICTING GLOMERULAR FILTRATION RATE. ESTIMATED GFR IS NOT APPLICABLE FOR DIALYSIS PATIENTS. Specimen slightly ictericCREATININE, RANDOM [id number] 06:19:00 Test Item Value Reference Range Comments CREATININE URINE (BEAKER) (test pdoo=039) 60.6 mg/dL Reference Range: No [id number] 13:43:00 Test Item Value Reference Range Comments ETHANOL (BEAKER) (test ncfs=195) < mg/dL <=10 COMPREHENSIVE METABOLIC [id number] 08:23:00 Test Item Value Reference Range Comments TOTAL PROTEIN (BEAKER) 5.5 gm/dL 6.0-8.3 (test ckmc=021) ALBUMIN (BEAKER) (test 3.3 g/dL 3.5-5.0 xqvk=6843) ALKALINE PHOSPHATASE 85 U/L 40-150 (BEAKER) (test ekfn=398) BILIRUBIN TOTAL (BEAKER) 3.8 mg/dL 0.2-1.2 (test hiru=031) SODIUM (BEAKER) (test 125 meq/L 136-145 jkbd=937) POTASSIUM (BEAKER) (test 4.7 meq/L 3.5-5.1 qolr=405) CHLORIDE (BEAKER) (test 96 meq/L 98-107 cion=217) CO2 (BEAKER) (test 21 meq/L 22-29 qumh=606) BLOOD UREA NITROGEN 22 mg/dL 7-21 (BEAKER) (test zfvi=715) CREATININE (BEAKER) (test 1.26 mg/dL 0.57-1.25 vnwr=531) GLUCOSE RANDOM (BEAKER) 95 mg/dL 70-105 (test yvsq=712) CALCIUM (BEAKER) (test 9.1 mg/dL 8.4-10.2 megv=757) AST (SGOT) (BEAKER) (test 20 U/L 5-34 ykmg=114) ALT (SGPT) (BEAKER) (test 8 U/L 6-55 zzam=291) EGFR (BEAKER) (test 60 mL/min/1.73 sq m ESTIMATED GFR IS NOT wmht=4941) ACCURATE CREATININE CLEARANCE IN PREDICTING GLOMERULAR FILTRATION RATE. ESTIMATED GFR IS NOT APPLICABLE FOR DIALYSIS PATIENTS. Specimen slightly ictericCBC W/PLT COUNT & AUTO [id number] 07:17 :00 Test Item Value Reference Range Comments WHITE BLOOD CELL COUNT (BEAKER) (test qtud=135) 2.8 K/ L 3.5-10.5 RED BLOOD CELL COUNT (BEAKER) (test xppm=518) 2.28 M/ L 4.63-6.08 HEMOGLOBIN (BEAKER) (test tbgb=020) 7.3 GM/DL 13.7-17.5 HEMATOCRIT (BEAKER) (test rzzg=775) 21.4 % 40.1-51.0 MEAN CORPUSCULAR VOLUME (BEAKER) (test tfvt=165) 93.9 fL 79.0-92.2 MEAN CORPUSCULAR HEMOGLOBIN (BEAKER) (test 32.0 pg 25.7-32.2 kezv=996) MEAN CORPUSCULAR HEMOGLOBIN CONC (BEAKER) (test 34.1 GM/DL 32.3-36.5 clkn=684) RED CELL DISTRIBUTION WIDTH (BEAKER) (test 16.9 % 11.6-14.4 sunx=315) PLATELET COUNT (BEAKER) (test hucf=360) 52 K/CU MM 150-450 MEAN PLATELET VOLUME (BEAKER) (test eumz=592) 9.8 fL 9.4-12.4 NUCLEATED RED BLOOD CELLS (BEAKER) (test 0 /100 WBC 0-0 kzyx=160) NEUTROPHILS RELATIVE PERCENT (BEAKER) (test 61 % vlic=003) LYMPHOCYTES RELATIVE PERCENT (BEAKER) (test 14 % ohad=582) MONOCYTES RELATIVE PERCENT (BEAKER) (test 18 % uqmh=800) EOSINOPHILS RELATIVE PERCENT (BEAKER) (test 7 % iawk=806) BASOPHILS RELATIVE PERCENT (BEAKER) (test 0 % hkzb=468) NEUTROPHILS ABSOLUTE COUNT (BEAKER) (test 1.69 K/ L 1.78-5.38 ipck=441) LYMPHOCYTES ABSOLUTE COUNT (BEAKER) (test 0.38 K/ L 1.32-3.57 ipvv=272) MONOCYTES ABSOLUTE COUNT (BEAKER) (test lvwp=645) 0.51 K/ L 0.30-0.82 EOSINOPHILS ABSOLUTE COUNT (BEAKER) (test 0.18 K/ L 0.04-0.54 uapb=901) BASOPHILS ABSOLUTE COUNT (BEAKER) (test rmhc=859) 0.01 K/ L 0.01-0.08 IMMATURE GRANULOCYTES-RELATIVE PERCENT (BEAKER) 1 % 0-1 (test hevo=8838) CT, [id number] 22:20:00FINAL REPORT EXAM: CT of the abdomen [...] MDReport Verified Date/Time: 12/28/2017 22:20:52 Reading Location: [address] Transitional Reading Room CBC W/PLT COUNT & AUTO [id number] 18:06:00 Test Item Value Reference Range Comments WHITE BLOOD CELL COUNT (BEAKER) (test eqcz=617) 2.9 K/ L 3.5-10.5 RED BLOOD CELL COUNT (BEAKER) (test ivii=968) 2.03 M/ L 4.63-6.08 HEMOGLOBIN (BEAKER) (test ucjd=206) 6.5 GM/DL 13.7-17.5 HEMATOCRIT (BEAKER) (test vwcg=164) 19.2 % 40.1-51.0 MEAN CORPUSCULAR VOLUME (BEAKER) (test qkhv=598) 94.6 fL 79.0-92.2 MEAN CORPUSCULAR HEMOGLOBIN (BEAKER) (test 32.0 pg 25.7-32.2 sqov=025) MEAN CORPUSCULAR HEMOGLOBIN CONC (BEAKER) (test 33.9 GM/DL 32.3-36.5 mumm=302) RED CELL DISTRIBUTION WIDTH (BEAKER) (test 17.6 % 11.6-14.4 icbe=297) PLATELET COUNT (BEAKER) (test pvua=424) 46 K/CU MM 150-450 MEAN PLATELET VOLUME (BEAKER) (test uupl=493) 9.3 fL 9.4-12.4 NUCLEATED RED BLOOD CELLS (BEAKER) (test 0 /100 WBC 0-0 dgdq=290) NEUTROPHILS RELATIVE PERCENT (BEAKER) (test 66 % vfpe=780) LYMPHOCYTES RELATIVE PERCENT (BEAKER) (test 12 % mtbk=084) MONOCYTES RELATIVE PERCENT (BEAKER) (test 15 % vjsq=710) EOSINOPHILS RELATIVE PERCENT (BEAKER) (test 6 % mhmq=404) BASOPHILS RELATIVE PERCENT (BEAKER) (test 0 % dpoy=469) NEUTROPHILS ABSOLUTE COUNT (BEAKER) (test 1.92 K/ L 1.78-5.38 rwfi=733) LYMPHOCYTES ABSOLUTE COUNT (BEAKER) (test 0.36 K/ L 1.32-3.57 uvgy=666) MONOCYTES ABSOLUTE COUNT (BEAKER) (test naxp=576) 0.44 K/ L 0.30-0.82 EOSINOPHILS ABSOLUTE COUNT (BEAKER) (test 0.16 K/ L 0.04-0.54 jode=269) BASOPHILS ABSOLUTE COUNT (BEAKER) (test aaly=066) 0.01 K/ L 0.01-0.08 IMMATURE GRANULOCYTES-RELATIVE PERCENT (BEAKER) 1 % 0-1 (test ijxs=8598) CBC W/PLT COUNT & AUTO [id number] 12:30:00 Test Item Value Reference Range Comments WHITE BLOOD CELL COUNT (BEAKER) (test ijfz=989) 3.1 K/ L 3.5-10.5 RED BLOOD CELL COUNT (BEAKER) (test wjon=840) 2.09 M/ L 4.63-6.08 HEMOGLOBIN (BEAKER) (test glgv=569) 6.8 GM/DL 13.7-17.5 HEMATOCRIT (BEAKER) (test jzdp=396) 19.9 % 40.1-51.0 MEAN CORPUSCULAR VOLUME (BEAKER) (test tsrn=652) 95.2 fL 79.0-92.2 MEAN CORPUSCULAR HEMOGLOBIN (BEAKER) (test 32.5 pg 25.7-32.2 llgz=956) MEAN CORPUSCULAR HEMOGLOBIN CONC (BEAKER) (test 34.2 GM/DL 32.3-36.5 nuls=606) RED CELL DISTRIBUTION WIDTH (BEAKER) (test 17.5 % 11.6-14.4 tzqi=249) PLATELET COUNT (BEAKER) (test oacr=274) 65 K/CU MM 150-450 MEAN PLATELET VOLUME (BEAKER) (test aous=741) 10.6 fL 9.4-12.4 NUCLEATED RED BLOOD CELLS (BEAKER) (test 0 /100 WBC 0-0 spdx=470) NEUTROPHILS RELATIVE PERCENT (BEAKER) (test 60 % yoam=160) LYMPHOCYTES RELATIVE PERCENT (BEAKER) (test 14 % mjko=258) MONOCYTES RELATIVE PERCENT (BEAKER) (test 17 % cigu=119) EOSINOPHILS RELATIVE PERCENT (BEAKER) (test 8 % licy=753) BASOPHILS RELATIVE PERCENT (BEAKER) (test 0 % hnly=881) NEUTROPHILS ABSOLUTE COUNT (BEAKER) (test 1.85 K/ L 1.78-5.38 dozh=399) LYMPHOCYTES ABSOLUTE COUNT (BEAKER) (test 0.42 K/ L 1.32-3.57 kdna=911) MONOCYTES ABSOLUTE COUNT (BEAKER) (test lmey=359) 0.52 K/ L 0.30-0.82 EOSINOPHILS ABSOLUTE COUNT (BEAKER) (test 0.26 K/ L 0.04-0.54 skui=540) BASOPHILS ABSOLUTE COUNT (BEAKER) (test ygnh=264) 0.01 K/ L 0.01-0.08 IMMATURE GRANULOCYTES-RELATIVE PERCENT (BEAKER) 1 % 0-1 (test pyey=2906) U/S, [id number] 06:59:00Limit fluid removal to no more than 5 litersReason for exam:->ascites, concern for sbpShould thisbe performed at the bedside?->NoFINAL REPORT Paracentesis dated 2017 Procedure: Ultrasound-guided paracentesis. Preprocedure diagnosis: Ascites Postprocedure diagnosis: Ascites Conscious sedation: None. Radiologist: Lena Lynn M.D. Iron Erector: None Anesthesia: 1% Xylocaine mixed with sodium bicarbonate local anesthesia. Technique: After obtaining informed consent, ultrasound-guided paracentesis was performed under usual sterile technique. Using a 5 syrian drainage catheter, puncture was made in the right lower quadrant abdomen. Approximately 5000 cc of serous fluid was removed. Patient tolerated the procedure well without complication. Complication: None Graft/ Implant: None Estimated Blood Loss: NoneImpression: Ultrasound-guided paracentesis. Signed: Lena Lynn Verified Date/Time: 12/28/2017 06:59 :16 Reading Location: [facility] B1 C013Y CT Body Reading Room ALPHA FETOPROTEIN (AFP), TUMOR [id number] 06:22:00 Test Item Value Reference Range Comments ALPHA-FETOPROTEIN (BEAKER) (test njza=2966) 4.1 ng/mL <10.0 COMPREHENSIVE METABOLIC [id number] 06:00:00 Test Item Value Reference Range Comments TOTAL PROTEIN (BEAKER) 5.3 gm/dL 6.0-8.3 (test ofbu=610) ALBUMIN (BEAKER) (test 2.7 g/dL 3.5-5.0 jemn=6522) ALKALINE PHOSPHATASE 94 U/L 40-150 (BEAKER) (test ydfj=674) BILIRUBIN TOTAL (BEAKER) 3.7 mg/dL 0.2-1.2 (test icwy=568) SODIUM (BEAKER) (test 124 meq/L 136-145 mpbe=147) POTASSIUM (BEAKER) (test 4.6 meq/L 3.5-5.1 pgvq=834) CHLORIDE (BEAKER) (test 96 meq/L 98-107 cpis=950) CO2 (BEAKER) (test 22 meq/L 22-29 ibil=792) BLOOD UREA NITROGEN 22 mg/dL 7-21 (BEAKER) (test inql=544) CREATININE (BEAKER) (test 1.40 mg/dL 0.57-1.25 agjg=246) GLUCOSE RANDOM (BEAKER) 89 mg/dL 70-105 (test skag=354) CALCIUM (BEAKER) (test 8.8 mg/dL 8.4-10.2 fowq=681) AST (SGOT) (BEAKER) (test 25 U/L 5-34 fkpt=233) ALT (SGPT) (BEAKER) (test 10 U/L 6-55 ijeh=033) EGFR (BEAKER) (test 53 mL/min/1.73 sq m ESTIMATED GFR IS NOT ftpu=1701) ACCURATE CREATININE CLEARANCE IN PREDICTING GLOMERULAR FILTRATION RATE. ESTIMATED GFR IS NOT APPLICABLE FOR DIALYSIS PATIENTS. Specimen slightly ictericCBC W/PLT COUNT & AUTO [id number] 05:50 :00 Test Item Value Reference Range Comments WHITE BLOOD CELL COUNT (BEAKER) (test hupz=454) 3.1 K/ L 3.5-10.5 RED BLOOD CELL COUNT (BEAKER) (test bcss=705) 2.00 M/ L 4.63-6.08 HEMOGLOBIN (BEAKER) (test uzcb=884) 6.4 GM/DL 13.7-17.5 HEMATOCRIT (BEAKER) (test nbga=495) 18.9 % 40.1-51.0 MEAN CORPUSCULAR VOLUME (BEAKER) (test sgsi=828) 94.5 fL 79.0-92.2 MEAN CORPUSCULAR HEMOGLOBIN (BEAKER) (test 32.0 pg 25.7-32.2 hjxo=375) MEAN CORPUSCULAR HEMOGLOBIN CONC (BEAKER) (test 33.9 GM/DL 32.3-36.5 ocls=057) RED CELL DISTRIBUTION WIDTH (BEAKER) (test 17.9 % 11.6-14.4 ccok=308) PLATELET COUNT (BEAKER) (test fzdo=006) 59 K/CU MM 150-450 MEAN PLATELET VOLUME (BEAKER) (test kkmk=459) 10.4 fL 9.4-12.4 NUCLEATED RED BLOOD CELLS (BEAKER) (test 0 /100 WBC 0-0 eugl=315) NEUTROPHILS RELATIVE PERCENT (BEAKER) (test 63 % onqd=440) LYMPHOCYTES RELATIVE PERCENT (BEAKER) (test 14 % rrsh=896) MONOCYTES RELATIVE PERCENT (BEAKER) (test 15 % xbpw=861) EOSINOPHILS RELATIVE PERCENT (BEAKER) (test 7 % tuht=643) BASOPHILS RELATIVE PERCENT (BEAKER) (test 0 % zbli=574) NEUTROPHILS ABSOLUTE COUNT (BEAKER) (test 1.94 K/ L 1.78-5.38 gwdu=274) LYMPHOCYTES ABSOLUTE COUNT (BEAKER) (test 0.44 K/ L 1.32-3.57 xeiy=029) MONOCYTES ABSOLUTE COUNT (BEAKER) (test foxk=936) 0.47 K/ L 0.30-0.82 EOSINOPHILS ABSOLUTE COUNT (BEAKER) (test 0.21 K/ L 0.04-0.54 heum=815) BASOPHILS ABSOLUTE COUNT (BEAKER) (test ijec=613) 0.01 K/ L 0.01-0.08 IMMATURE GRANULOCYTES-RELATIVE PERCENT (BEAKER) 1 % 0-1 (test jwln=5477) BODY FLUID CELL COUNT WITH [id number] 20:39:00 Test Item Value Reference Range Comments APPEARANCE FLUID (BEAKER) (test cqhd=169) Slightly Hazy Clear COLOR FLUID (BEAKER) (test bptm=539) Yellow Colorless, Straw RBC FLUID (BEAKER) (test xzoi=761) 90 /cu mm <=1 ADJUSTED WBC FLUID (BEAKER) (test rlhz=9498) 47 /cu mm <=5 LINING CELLS (BEAKER) (test lsbs=7249) 3 /cu mm <=1 NEUTROPHILS FLUID (BEAKER) (test ptyk=7987) 2 % LYMPHS FLUID (BEAKER) (test gzai=573) 19 % MONO/MACROPHAGE FLUID (BEAKER) (test 79 % nufk=182) EOSINOPHILS FLUID (BEAKER) (test urzl=869) 0 % BASO FLUID (BEAKER) (test fwqb=397) 0 % CONTAINER BODY FLUID (BEAKER) (test EDTA Tube batv=6655) ALBUMIN, BODY [id number] 20:14:00 Test Item Value Reference Range Comments ALBUMIN FLUID (BEAKER) (test rwyp=370) 0.4 gm/dL Reference Range: No Normals Assay performance has not been validated for this type of specimen.BASIC METABOLIC [id number] 10:31:00 Test Item Value Reference Range Comments SODIUM (BEAKER) (test 125 meq/L 136-145 zllt=672) POTASSIUM (BEAKER) (test 4.5 meq/L 3.5-5.1 udtk=447) CHLORIDE (BEAKER) (test 98 meq/L 98-107 tfhk=477) CO2 (BEAKER) (test 20 meq/L 22-29 gdtb=073) BLOOD UREA NITROGEN 22 mg/dL 7-21 (BEAKER) (test ctxi=132) CREATININE (BEAKER) (test 1.45 mg/dL 0.57-1.25 rqlv=848) GLUCOSE RANDOM (BEAKER) 87 mg/dL 70-105 (test aopl=443) CALCIUM (BEAKER) (test 8.6 mg/dL 8.4-10.2 ftec=530) EGFR (BEAKER) (test 51 mL/min/1.73 sq m ESTIMATED GFR IS NOT kouh=9527) ACCURATE CREATININE CLEARANCE IN PREDICTING GLOMERULAR FILTRATION RATE. ESTIMATED GFR IS NOT APPLICABLE FOR DIALYSIS PATIENTS. Specimen slightly ictericHEPATIC FUNCTION [id number] 10:31:00 Test Item Value Reference Range Comments TOTAL PROTEIN (BEAKER) (test guqh=880) 5.8 gm/dL 6.0-8.3 ALBUMIN (BEAKER) (test igmb=4648) 2.4 g/dL 3.5-5.0 BILIRUBIN TOTAL (BEAKER) (test imyb=350) 4.1 mg/dL 0.2-1.2 BILIRUBIN DIRECT (BEAKER) (test tqdw=040) 3.1 mg/dL 0.1-0.5 ALKALINE PHOSPHATASE (BEAKER) (test wglf=189) 126 U/L 40-150 AST (SGOT) (BEAKER) (test kxub=443) 28 U/L 5-34 ALT (SGPT) (BEAKER) (test enus=528) 13 U/L 6-55 Specimen slightly ictericCBC W/PLT COUNT & AUTO [id number] 10:09 :00 Test Item Value Reference Range Comments WHITE BLOOD CELL COUNT (BEAKER) (test ptlh=455) 5.5 K/ L 3.5-10.5 RED BLOOD CELL COUNT (BEAKER) (test jyzz=496) 2.56 M/ L 4.63-6.08 HEMOGLOBIN (BEAKER) (test eawm=369) 8.1 GM/DL 13.7-17.5 HEMATOCRIT (BEAKER) (test vaap=460) 24.2 % 40.1-51.0 MEAN CORPUSCULAR VOLUME (BEAKER) (test guis=106) 94.5 fL 79.0-92.2 MEAN CORPUSCULAR HEMOGLOBIN (BEAKER) (test 31.6 pg 25.7-32.2 szfq=722) MEAN CORPUSCULAR HEMOGLOBIN CONC (BEAKER) (test 33.5 GM/DL 32.3-36.5 ubgp=902) RED CELL DISTRIBUTION WIDTH (BEAKER) (test 18.6 % 11.6-14.4 qjia=913) PLATELET COUNT (BEAKER) (test fztm=940) 86 K/CU MM 150-450 MEAN PLATELET VOLUME (BEAKER) (test pauo=293) 9.7 fL 9.4-12.4 NUCLEATED RED BLOOD CELLS (BEAKER) (test 0 /100 WBC 0-0 wluq=162) NEUTROPHILS RELATIVE PERCENT (BEAKER) (test 65 % ukkp=843) LYMPHOCYTES RELATIVE PERCENT (BEAKER) (test 13 % bggv=895) MONOCYTES RELATIVE PERCENT (BEAKER) (test 14 % jdns=536) EOSINOPHILS RELATIVE PERCENT (BEAKER) (test 6 % gmps=833) BASOPHILS RELATIVE PERCENT (BEAKER) (test 0 % yarm=756) NEUTROPHILS ABSOLUTE COUNT (BEAKER) (test 3.59 K/ L 1.78-5.38 asdt=043) LYMPHOCYTES ABSOLUTE COUNT (BEAKER) (test 0.73 K/ L 1.32-3.57 aoct=977) MONOCYTES ABSOLUTE COUNT (BEAKER) (test ekek=135) 0.76 K/ L 0.30-0.82 EOSINOPHILS ABSOLUTE COUNT (BEAKER) (test 0.33 K/ L 0.04-0.54 tbgs=812) BASOPHILS ABSOLUTE COUNT (BEAKER) (test jhkv=493) 0.02 K/ L 0.01-0.08 IMMATURE GRANULOCYTES-RELATIVE PERCENT (BEAKER) 1 % 0-1 (test zpjt=5645) PROTHROMBIN [id number] 07:51:00 Test Item Value Reference Range Comments PROTIME (BEAKER) (test trpf=716) 23.8 seconds 11.7-14.7 INR (BEAKER) (test wvki=056) 2.1 <=5.9 RECOMMENDED COUMADIN/WARFARIN INR THERAPY RANGESSTANDARD DOSE: 2.0 - 3.0 Includes: PROPHYLAXIS forvenous thrombosis, systemic embolization; TREATMENT for venous thrombosis and/or pulmonary embolus.HIGH RISK: Target INR is 2.5-3.5 for patients with mechanical heart valves.BLOOD [id number] 05:02:00 Test Item Value Reference Range Comments CULTURE (BEAKER) (test woox=8916) No growth in 5 days BLOOD [id number] 05:02:00 Test Item Value Reference Range Comments CULTURE (BEAKER) (test ishx=7828) No growth in 5 days BODY FLUID CULTURE + GRAM [id number] 09:05:00 Test Item Value Reference Range Comments CULTURE (BEAKER) (test lwov=5996) No growth GRAM STAIN RESULT (BEAKER) (test No White blood cells seen pdsl=0647) GRAM STAIN RESULT (BEAKER) (test No organisms seen hqii=51224) RAPID DRUG SCREEN, [id number] 23:13:00 Test Item Value Reference Range Comments BARBITURATE URINE (BEAKER) (test xvto=410) Negative Negative BENZODIAZEPINE SCREEN URINE (BEAKER) (test Negative Negative sejf=941) COCAINE (METAB.) SCREEN (BEAKER) (test ybwf=4854) Negative Negative METHADONE SCREEN (BEAKER) (test zcyb=6270) Negative Negative OPIATE SCREEN URINE (BEAKER) (test fook=646) Negative Negative CANNABINOID SCREEN URINE (BEAKER) (test jomw=001) Negative Negative AMPH/METHAMPH SCREEN (BEAKER) (test pgmh=8227) Negative Negative PHENCYCLIDINE SCREEN URINE (BEAKER) (test gkho=063) Negative Negative OXYCODONE SCREEN URINE (BEAKER) (test ovnh=7512) Negative Negative DRUG CUTOFF CONC.Cocaine 300 ng/mL Cannabinoid 50 ng/mL Benzodiazepine 200 ng/mLBarbiturate 200 ng/ mLPhencyclidine 25 ng/mLOpiate 300 ng/mLMethadone 300 ng/mLAmphetamine/ 1000 ng/mL MethamphetamineOxycodone 300 ng/mLThis assay provides an unconfirmed qualitative test result for the clinical management of patients in emergency situations. Chain of custody not maintained. Some bmht-gsc-ieyhemp medications, as well as adulterants, may cause inaccurate results. Clinical correlation should be applied. A more comprehensive drug screen or confirmation of a detected drug may be performed upon request.MR, ABDOMEN, [id number] 13:52:00FINAL REPORT MRI of the abdomen with [...] should be closely followed. Signed: Ten Mcgarry MDRort Verified Date/Time: 09/05/2017 13:52:35 Reading Location: [facility] C013Y CT BodyReading Room CBC W/PLT COUNT & AUTO [id number] 05:46:00 Test Item Value Reference Range Comments WHITE BLOOD CELL COUNT (BEAKER) (test pauj=168) 4.7 K/ L 3.5-10.5 RED BLOOD CELL COUNT (BEAKER) (test quee=490) 2.49 M/ L 4.63-6.08 HEMOGLOBIN (BEAKER) (test ezhw=007) 7.9 GM/DL 13.7-17.5 HEMATOCRIT (BEAKER) (test nvft=200) 22.6 % 40.1-51.0 MEAN CORPUSCULAR VOLUME (BEAKER) (test upru=181) 90.8 fL 79.0-92.2 MEAN CORPUSCULAR HEMOGLOBIN (BEAKER) (test 31.7 pg 25.7-32.2 ekhj=940) MEAN CORPUSCULAR HEMOGLOBIN CONC (BEAKER) (test 35.0 GM/DL 32.3-36.5 cmnn=449) RED CELL DISTRIBUTION WIDTH (BEAKER) (test 18.8 % 11.6-14.4 lhan=310) PLATELET COUNT (BEAKER) (test hwgc=701) 60 K/CU MM 150-450 MEAN PLATELET VOLUME (BEAKER) (test jsad=020) 9.2 fL 9.4-12.4 NUCLEATED RED BLOOD CELLS (BEAKER) (test 0 /100 WBC 0-0 phxw=904) NEUTROPHILS RELATIVE PERCENT (BEAKER) (test 65 % wsul=828) LYMPHOCYTES RELATIVE PERCENT (BEAKER) (test 13 % abpg=882) MONOCYTES RELATIVE PERCENT (BEAKER) (test 15 % fwdi=464) EOSINOPHILS RELATIVE PERCENT (BEAKER) (test 6 % duqh=766) BASOPHILS RELATIVE PERCENT (BEAKER) (test 0 % uhoe=431) NEUTROPHILS ABSOLUTE COUNT (BEAKER) (test 3.05 K/ L 1.78-5.38 zuqi=259) LYMPHOCYTES ABSOLUTE COUNT (BEAKER) (test 0.62 K/ L 1.32-3.57 moii=887) MONOCYTES ABSOLUTE COUNT (BEAKER) (test qkds=658) 0.68 K/ L 0.30-0.82 EOSINOPHILS ABSOLUTE COUNT (BEAKER) (test 0.28 K/ L 0.04-0.54 yuyf=604) BASOPHILS ABSOLUTE COUNT (BEAKER) (test rdro=833) 0.02 K/ L 0.01-0.08 IMMATURE GRANULOCYTES-RELATIVE PERCENT (BEAKER) 1 % 0-1 (test medn=2142) BASIC METABOLIC [id number] 05:44:00 Test Item Value Reference Range Comments SODIUM (BEAKER) (test 127 meq/L 136-145 naxj=786) POTASSIUM (BEAKER) (test 4.5 meq/L 3.5-5.1 zfyx=895) CHLORIDE (BEAKER) (test 101 meq/L 98-107 ujsz=383) CO2 (BEAKER) (test 19 meq/L 22-29 afhr=247) BLOOD UREA NITROGEN 17 mg/dL 7-21 (BEAKER) (test kssu=623) CREATININE (BEAKER) (test 0.91 mg/dL 0.57-1.25 tlkq=062) GLUCOSE RANDOM (BEAKER) 107 mg/dL 70-105 (test bfey=111) CALCIUM (BEAKER) (test 9.4 mg/dL 8.4-10.2 dfbm=090) EGFR (BEAKER) (test 87 mL/min/1.73 sq m ESTIMATED GFR IS NOT qjyw=3363) ACCURATE CREATININE CLEARANCE IN PREDICTING GLOMERULAR FILTRATION RATE. ESTIMATED GFR IS NOT APPLICABLE FOR DIALYSIS PATIENTS. Specimen moderately ictericHEPATIC FUNCTION [id number] 05:44:00 Test Item Value Reference Range Comments TOTAL PROTEIN (BEAKER) (test dgki=791) 5.6 gm/dL 6.0-8.3 ALBUMIN (BEAKER) (test ypoz=1849) 3.3 g/dL 3.5-5.0 BILIRUBIN TOTAL (BEAKER) (test rxcx=984) 10.3 mg/dL 0.2-1.2 BILIRUBIN DIRECT (BEAKER) (test tosu=045) 6.8 mg/dL 0.1-0.5 ALKALINE PHOSPHATASE (BEAKER) (test jrms=484) 103 U/L 40-150 AST (SGOT) (BEAKER) (test zwpa=361) 17 U/L 5-34 ALT (SGPT) (BEAKER) (test xzix=981) 8 U/L 6-55 Specimen moderately ictericPT/[id number] 05:31:00 Test Item Value Reference Range Comments PROTIME (BEAKER) (test xcou=879) 25.6 seconds 11.7-14.7 INR (BEAKER) (test azio=185) 2.3 <=5.9 PARTIAL THROMBOPLASTIN TIME (BEAKER) (test 51.6 seconds 22.5-36.0 dhom=965) RECOMMENDED COUMADIN/WARFARIN INR THERAPY RANGESSTANDARD DOSE: 2.0 - 3.0 Includes: PROPHYLAXIS forvenous thrombosis, systemic embolization; TREATMENT for venous thrombosis and/or pulmonary embolus.HIGH RISK: Target INR is 2.5-3.5 for patients with mechanical heart valves.PROTHROMBIN TIME/[id number] 05:30: 00 Test Item Value Reference Range Comments PROTIME (BEAKER) (test bmqc=131) 25.6 seconds 11.7-14.7 INR (BEAKER) (test etqi=835) 2.3 <=5.9 RECOMMENDED COUMADIN/WARFARIN INR THERAPY RANGESSTANDARD DOSE: 2.0 - 3.0 Includes: PROPHYLAXIS forvenous thrombosis, systemic embolization; TREATMENT for venous thrombosis and/or pulmonary embolus.HIGH RISK: Target INR is 2.5-3.5 for patients with mechanical heart valves.BODY FLUID CELL COUNT WITH [id number] 19:30:00 Test Item Value Reference Range Comments APPEARANCE FLUID (BEAKER) (test fkcq=863) Slightly Hazy Clear COLOR FLUID (BEAKER) (test mfpp=773) Yellow Colorless, Straw RBC FLUID (BEAKER) (test avtu=039) 100 /cu mm <=1 ADJUSTED WBC FLUID (BEAKER) (test qpgc=6468) 36 /cu mm <=5 LINING CELLS (BEAKER) (test erfl=2456) 4 /cu mm <=1 NEUTROPHILS FLUID (BEAKER) (test nbjo=0044) 0 % LYMPHS FLUID (BEAKER) (test wglb=929) 20 % MONO/MACROPHAGE FLUID (BEAKER) (test 80 % qnpu=486) EOSINOPHILS FLUID (BEAKER) (test hoqj=189) 0 % BASO FLUID (BEAKER) (test cghy=395) 0 % CONTAINER BODY FLUID (BEAKER) (test EDTA Tube xijf=9973) U/S, [id number] 16:21:00Reason for exam:->ascitesShould this be performed at the bedside?->NoFINAL REPORT PROCEDURE: Ultrasound-guided paracentesis. INDICATION: 52-year-old man with ascites. DESCRIPTION: After obtaining informed written consent, ultrasound scan of the abdomen identified ascites in the right lower quadrant. The overlying skin was prepped and draped in the usual, sterile fashion and local 1% lidocaine anesthesia was administered. A 5 [place] catheter was advanced into the peritoneal cavity and 13,200 cc of cloudy yellow fluid was removed. The catheter was removed without immediate complication. Samples were sent for analysis. IMPRESSION:Uncomplicated ultrasound-guided paracentesis with 13,200 cc fluid removed. Signed: Candice Mckeon Verified Date/Time: 2016 16:21:22 Reading Location: [address] Ultrasound Reading Room BASI METABOLIC [id number] 11:07:00 Test Item Value Reference Range Comments SODIUM (BEAKER) (test 127 meq/L 136-145 opko=851) POTASSIUM (BEAKER) (test 4.1 meq/L 3.5-5.1 iicz=919) CHLORIDE (BEAKER) (test 101 meq/L 98-107 xwyq=429) CO2 (BEAKER) (test 23 meq/L 22-29 sebr=256) BLOOD UREA NITROGEN 17 mg/dL 7-21 (BEAKER) (test qbar=682) CREATININE (BEAKER) (test 1.06 mg/dL 0.57-1.25 bwat=090) GLUCOSE RANDOM (BEAKER) 104 mg/dL 70-105 (test hzts=619) CALCIUM (BEAKER) (test 8.9 mg/dL 8.4-10.2 uoho=233) EGFR (BEAKER) (test 73 mL/min/1.73 sq m ESTIMATED GFR IS NOT qclq=3024) ACCURATE CREATININE CLEARANCE IN PREDICTING GLOMERULAR FILTRATION RATE. ESTIMATED GFR IS NOT APPLICABLE FOR DIALYSIS PATIENTS. Specimen markedly ictericHEPATIC FUNCTION [id number] 11:07:00 Test Item Value Reference Range Comments TOTAL PROTEIN (BEAKER) (test dwvu=142) 5.4 gm/dL 6.0-8.3 ALBUMIN (BEAKER) (test blvd=6826) 2.8 g/dL 3.5-5.0 BILIRUBIN TOTAL (BEAKER) (test clwd=964) 12.7 mg/dL 0.2-1.2 BILIRUBIN DIRECT (BEAKER) (test naas=642) 7.8 mg/dL 0.1-0.5 ALKALINE PHOSPHATASE (BEAKER) (test pgqj=811) 90 U/L 40-150 AST (SGOT) (BEAKER) (test evmp=407) 22 U/L 5-34 ALT (SGPT) (BEAKER) (test cwqr=740) 11 U/L 6-55 Specimen markedly ictericPT/[id number] 11:02:00 Test Item Value Reference Range Comments PROTIME (BEAKER) (test ecpt=630) 23.4 seconds 11.7-14.7 INR (BEAKER) (test qxkp=958) 2.1 <=5.9 PARTIAL THROMBOPLASTIN TIME (BEAKER) (test 48.7 seconds 22.5-36.0 zoyv=948) RECOMMENDED COUMADIN/WARFARIN INR THERAPY RANGESSTANDARD DOSE: 2.0 - 3.0 Includes: PROPHYLAXIS forvenous thrombosis, systemic embolization; TREATMENT for venous thrombosis and/or pulmonary embolus.HIGH RISK: Target INR is 2.5-3.5 for patients with mechanical heart valves.PROTHROMBIN TIME/[id number] 11:01: 00 Test Item Value Reference Range Comments PROTIME (BEAKER) (test ylxn=808) 23.4 seconds 11.7-14.7 INR (BEAKER) (test uqay=195) 2.1 <=5.9 RECOMMENDED COUMADIN/WARFARIN INR THERAPY RANGESSTANDARD DOSE: 2.0 - 3.0 Includes: PROPHYLAXIS forvenous thrombosis, systemic embolization; TREATMENT for venous thrombosis and/or pulmonary embolus.HIGH RISK: Target INR is 2.5-3.5 for patients with mechanical heart valves.CBC W/PLT COUNT & AUTO [id number] 10:56:00 Test Item Value Reference Range Comments WHITE BLOOD CELL COUNT (BEAKER) (test lymo=990) 4.4 K/ L 3.5-10.5 RED BLOOD CELL COUNT (BEAKER) (test roor=622) 2.48 M/ L 4.63-6.08 HEMOGLOBIN (BEAKER) (test bwrc=992) 7.8 GM/DL 13.7-17.5 HEMATOCRIT (BEAKER) (test djij=856) 22.7 % 40.1-51.0 MEAN CORPUSCULAR VOLUME (BEAKER) (test pvyo=689) 91.5 fL 79.0-92.2 MEAN CORPUSCULAR HEMOGLOBIN (BEAKER) (test 31.5 pg 25.7-32.2 aksb=290) MEAN CORPUSCULAR HEMOGLOBIN CONC (BEAKER) (test 34.4 GM/DL 32.3-36.5 pwtb=363) RED CELL DISTRIBUTION WIDTH (BEAKER) (test 18.6 % 11.6-14.4 corj=170) PLATELET COUNT (BEAKER) (test nibd=195) 60 K/CU MM 150-450 MEAN PLATELET VOLUME (BEAKER) (test dcdo=238) 8.8 fL 9.4-12.4 NUCLEATED RED BLOOD CELLS (BEAKER) (test 0 /100 WBC 0-0 abhk=091) NEUTROPHILS RELATIVE PERCENT (BEAKER) (test 61 % ydaz=064) LYMPHOCYTES RELATIVE PERCENT (BEAKER) (test 9 % kycs=093) MONOCYTES RELATIVE PERCENT (BEAKER) (test 21 % gsav=656) EOSINOPHILS RELATIVE PERCENT (BEAKER) (test 8 % obnu=640) BASOPHILS RELATIVE PERCENT (BEAKER) (test 1 % lwor=311) NEUTROPHILS ABSOLUTE COUNT (BEAKER) (test 2.68 K/ L 1.78-5.38 klyh=566) LYMPHOCYTES ABSOLUTE COUNT (BEAKER) (test 0.38 K/ L 1.32-3.57 vkph=252) MONOCYTES ABSOLUTE COUNT (BEAKER) (test gnyr=122) 0.94 K/ L 0.30-0.82 EOSINOPHILS ABSOLUTE COUNT (BEAKER) (test 0.33 K/ L 0.04-0.54 pary=525) BASOPHILS ABSOLUTE COUNT (BEAKER) (test cyrn=710) 0.02 K/ L 0.01-0.08 IMMATURE GRANULOCYTES-RELATIVE PERCENT (BEAKER) 1 % 0-1 (test erkk=9866) URINALYSIS W/ [id number] 06:18:00 Test Item Value Reference Range Comments COLOR (BEAKER) (test monu=564) Dark Yellow CLARITY (BEAKER) (test vomj=673) Clear SPECIFIC GRAVITY UA (BEAKER) (test vmgu=174) 1.008 1.001-1.035 PH UA (BEAKER) (test bbbm=511) 6.0 5.0-8.0 PROTEIN UA (BEAKER) (test fyod=406) Negative Negative GLUCOSE UA (BEAKER) (test dhlo=402) Negative Negative KETONES UA (BEAKER) (test ayfj=402) Negative Negative BILIRUBIN UA (BEAKER) (test vaeu=728) Positive Negative BLOOD UA (BEAKER) (test susd=089) Moderate Negative NITRITE UA (BEAKER) (test hiwm=592) Negative Negative LEUKOCYTE ESTERASE UA (BEAKER) (test ujxp=471) Negative Negative UROBILINOGEN UA (BEAKER) (test zqvg=567) 0.2 mg/dL 0.2-1.0 RBC UA (BEAKER) (test wmeq=183) 80 /HPF WBC UA (BEAKER) (test lykq=013) 10 /HPF HYALINE CASTS (BEAKER) (test pwnv=198) 5 /LPF AMORPHOUS CRYSTALS (BEAKER) (test wjkr=1846) Rare SOURCE(BEAKER) (test wqdi=2335) CBC W/PLT COUNT & AUTO [id number] 00:00:00 Test Item Value Reference Range Comments WHITE BLOOD CELL COUNT (BEAKER) (test bzxb=771) 3.7 K/ L 3.5-10.5 RED BLOOD CELL COUNT (BEAKER) (test iklw=408) 2.20 M/ L 4.63-6.08 HEMOGLOBIN (BEAKER) (test owof=345) 7.0 GM/DL 13.7-17.5 HEMATOCRIT (BEAKER) (test bpcz=293) 20.2 % 40.1-51.0 MEAN CORPUSCULAR VOLUME (BEAKER) (test nvzl=305) 91.8 fL 79.0-92.2 MEAN CORPUSCULAR HEMOGLOBIN (BEAKER) (test 31.8 pg 25.7-32.2 xetp=391) MEAN CORPUSCULAR HEMOGLOBIN CONC (BEAKER) (test 34.7 GM/DL 32.3-36.5 tewg=799) RED CELL DISTRIBUTION WIDTH (BEAKER) (test 19.3 % 11.6-14.4 xkiw=342) PLATELET COUNT (BEAKER) (test oygn=234) 63 K/CU MM 150-450 MEAN PLATELET VOLUME (BEAKER) (test ilfw=067) 9.1 fL 9.4-12.4 NUCLEATED RED BLOOD CELLS (BEAKER) (test 0 /100 WBC 0-0 cbks=364) NEUTROPHILS RELATIVE PERCENT (BEAKER) (test 62 % vqpv=442) LYMPHOCYTES RELATIVE PERCENT (BEAKER) (test 11 % kmoi=492) MONOCYTES RELATIVE PERCENT (BEAKER) (test 19 % vghe=755) EOSINOPHILS RELATIVE PERCENT (BEAKER) (test 7 % quxt=851) BASOPHILS RELATIVE PERCENT (BEAKER) (test 1 % tugp=875) NEUTROPHILS ABSOLUTE COUNT (BEAKER) (test 2.29 K/ L 1.78-5.38 nbvk=639) LYMPHOCYTES ABSOLUTE COUNT (BEAKER) (test 0.39 K/ L 1.32-3.57 otfo=323) MONOCYTES ABSOLUTE COUNT (BEAKER) (test qghe=935) 0.71 K/ L 0.30-0.82 EOSINOPHILS ABSOLUTE COUNT (BEAKER) (test 0.27 K/ L 0.04-0.54 siin=642) BASOPHILS ABSOLUTE COUNT (BEAKER) (test sbmb=721) 0.02 K/ L 0.01-0.08 IMMATURE GRANULOCYTES-RELATIVE PERCENT (BEAKER) 1 % 0-1 (test blyv=0970) PROTHROMBIN [id number] 22:52:00 Test Item Value Reference Range Comments PROTIME (BEAKER) (test lkhv=400) 25.6 seconds 11.7-14.7 INR (BEAKER) (test bdnw=174) 2.3 <=5.9 RECOMMENDED COUMADIN/WARFARIN INR THERAPY RANGESSTANDARD DOSE: 2.0 - 3.0 Includes: PROPHYLAXIS forvenous thrombosis, systemic embolization; TREATMENT for venous thrombosis and/or pulmonary embolus.HIGH RISK: Target INR is 2.5-3.5 for patients with mechanical heart valves.[id number] 22:52:00 Test Item Value Reference Range Comments MAGNESIUM (BEAKER) (test yufu=361) 1.3 mg/dL 1.6-2.6 BASIC METABOLIC [id number] 22:52:00 Test Item Value Reference Range Comments SODIUM (BEAKER) (test 124 meq/L 136-145 joew=275) POTASSIUM (BEAKER) (test 4.1 meq/L 3.5-5.1 ynwr=136) CHLORIDE (BEAKER) (test 99 meq/L 98-107 llax=594) CO2 (BEAKER) (test 18 meq/L 22-29 cqrx=815) BLOOD UREA NITROGEN 16 mg/dL 7-21 (BEAKER) (test ekdy=689) CREATININE (BEAKER) (test 0.97 mg/dL 0.57-1.25 lrfn=307) GLUCOSE RANDOM (BEAKER) 99 mg/dL 70-105 (test qkvk=854) CALCIUM (BEAKER) (test 8.7 mg/dL 8.4-10.2 hfrj=896) EGFR (BEAKER) (test 81 mL/min/1.73 sq m ESTIMATED GFR IS NOT bnsz=1656) ACCURATE CREATININE CLEARANCE IN PREDICTING GLOMERULAR FILTRATION RATE. ESTIMATED GFR IS NOT APPLICABLE FOR DIALYSIS PATIENTS. Specimen markedly ictericHEPATIC FUNCTION [id number] 22:52:00 Test Item Value Reference Range Comments TOTAL PROTEIN (BEAKER) (test cfvf=385) 5.3 gm/dL 6.0-8.3 ALBUMIN (BEAKER) (test dwmg=0618) 2.8 g/dL 3.5-5.0 BILIRUBIN TOTAL (BEAKER) (test gbri=917) 12.7 mg/dL 0.2-1.2 BILIRUBIN DIRECT (BEAKER) (test htjj=319) 7.6 mg/dL 0.1-0.5 ALKALINE PHOSPHATASE (BEAKER) (test wkob=061) 93 U/L 40-150 AST (SGOT) (BEAKER) (test yqja=353) 21 U/L 5-34 ALT (SGPT) (BEAKER) (test rmei=389) 9 U/L 6-55 Specimen markedly ictericALPHA FETOPROTEIN (AFP), TUMOR [id number] 16:39: 00 Test Item Value Reference Range Comments ALPHA-FETOPROTEIN (BEAKER) (test eapr=3075) 2.5 ng/mL <10.0 BASIC METABOLIC [id number] 15:53:00 Test Item Value Reference Range Comments SODIUM (BEAKER) (test 126 meq/L 136-145 nhmr=484) POTASSIUM (BEAKER) (test 5.1 meq/L 3.5-5.1 msux=737) CHLORIDE (BEAKER) (test 101 meq/L 98-107 pook=394) CO2 (BEAKER) (test 19 meq/L 22-29 iokr=306) BLOOD UREA NITROGEN 14 mg/dL 7-21 (BEAKER) (test kcbx=525) CREATININE (BEAKER) (test 1.01 mg/dL 0.57-1.25 nuww=594) GLUCOSE RANDOM (BEAKER) 104 mg/dL 70-105 (test udsi=024) CALCIUM (BEAKER) (test 9.0 mg/dL 8.4-10.2 hxbw=756) EGFR (BEAKER) (test 78 mL/min/1.73 sq m ESTIMATED GFR IS NOT hvds=0258) ACCURATE CREATININE CLEARANCE IN PREDICTING GLOMERULAR FILTRATION RATE. ESTIMATED GFR IS NOT APPLICABLE FOR DIALYSIS PATIENTS. Specimen moderately ictericHEPATIC FUNCTION [id number] 15:53:00 Test Item Value Reference Range Comments TOTAL PROTEIN (BEAKER) (test jwau=745) 6.1 gm/dL 6.0-8.3 ALBUMIN (BEAKER) (test getu=4818) 2.6 g/dL 3.5-5.0 BILIRUBIN TOTAL (BEAKER) (test zhcg=434) 10.4 mg/dL 0.2-1.2 BILIRUBIN DIRECT (BEAKER) (test ywiy=497) 7.5 mg/dL 0.1-0.5 ALKALINE PHOSPHATASE (BEAKER) (test inmu=684) 124 U/L 40-150 AST (SGOT) (BEAKER) (test kjwk=852) 29 U/L 5-34 ALT (SGPT) (BEAKER) (test pwqg=980) 12 U/L 6-55 Specimen moderately ictericGAMMA GLUTAMYL TRANSFERASE (GGT)[id number] 15:53:00 Test Item Value Reference Range Comments GAMMA GLUTAMYL TRANSFERASE (BEAKER) (test jejo=308) 17 U/L 9-64 Specimen moderately ictericPROTHROMBIN [id number] 15:40:00 Test Item Value Reference Range Comments PROTIME (BEAKER) (test erkd=268) 22.6 seconds 11.7-14.7 INR (BEAKER) (test ljmd=926) 2.0 <=5.9 RECOMMENDED COUMADIN/WARFARIN INR THERAPY RANGESSTANDARD DOSE: 2.0 - 3.0 Includes: PROPHYLAXIS forvenous thrombosis, systemic embolization; TREATMENT for venous thrombosis and/or pulmonary embolus.HIGH RISK: Target INR is 2.5-3.5 for patients with mechanical heart valves.CBC W/PLT COUNT & AUTO [id number] 15:38:00 Test Item Value Reference Range Comments WHITE BLOOD CELL COUNT (BEAKER) (test ibej=105) 7.3 K/ L 3.5-10.5 RED BLOOD CELL COUNT (BEAKER) (test iclc=557) 2.78 M/ L 4.63-6.08 HEMOGLOBIN (BEAKER) (test nydp=724) 9.1 GM/DL 13.7-17.5 HEMATOCRIT (BEAKER) (test oqub=023) 27.3 % 40.1-51.0 MEAN CORPUSCULAR VOLUME (BEAKER) (test yytq=300) 98.2 fL 79.0-92.2 MEAN CORPUSCULAR HEMOGLOBIN (BEAKER) (test 32.7 pg 25.7-32.2 lgak=314) MEAN CORPUSCULAR HEMOGLOBIN CONC (BEAKER) (test 33.3 GM/DL 32.3-36.5 npff=587) RED CELL DISTRIBUTION WIDTH (BEAKER) (test 16.4 % 11.6-14.4 dkje=703) PLATELET COUNT (BEAKER) (test jaxb=083) 71 K/CU MM 150-450 MEAN PLATELET VOLUME (BEAKER) (test eplk=253) 9.1 fL 9.4-12.4 NUCLEATED RED BLOOD CELLS (BEAKER) (test 0 /100 WBC 0-0 uafh=200) NEUTROPHILS RELATIVE PERCENT (BEAKER) (test 71 % rjyu=738) LYMPHOCYTES RELATIVE PERCENT (BEAKER) (test 8 % bjuh=437) MONOCYTES RELATIVE PERCENT (BEAKER) (test 15 % qnvm=571) EOSINOPHILS RELATIVE PERCENT (BEAKER) (test 5 % oorj=414) BASOPHILS RELATIVE PERCENT (BEAKER) (test 0 % buar=777) NEUTROPHILS ABSOLUTE COUNT (BEAKER) (test 5.13 K/ L 1.78-5.38 feew=411) LYMPHOCYTES ABSOLUTE COUNT (BEAKER) (test 0.59 K/ L 1.32-3.57 vtmr=643) MONOCYTES ABSOLUTE COUNT (BEAKER) (test wfrb=535) 1.06 K/ L 0.30-0.82 EOSINOPHILS ABSOLUTE COUNT (BEAKER) (test 0.33 K/ L 0.04-0.54 aspx=071) BASOPHILS ABSOLUTE COUNT (BEAKER) (test usrf=645) 0.03 K/ L 0.01-0.08 IMMATURE GRANULOCYTES-RELATIVE PERCENT (BEAKER) 2 % 0-1 (test kgvq=0752) FUNGUS CULTURE + [id number] 07:22:00 Test Item Value Reference Range Comments CULTURE (BEAKER) (test No fungus isolated in 28 days tiox=0568) FUNGUS SMEAR (BEAKER) (test No fungi seen kojh=4124) HISTOPLASMA ANTIGEN, [id number] 08:01:00 Test Item Value Reference Range Comments SCAN RESULT (test zrtw=[id number]) TISSUE [id number] 10:58:00 Test Item Value Reference Range Comments LAB AP CPT CODE (BEAKER) (test ffrj=2376) [id number] BLOOD [id number] 16:15:00 Test Item Value Reference Range Comments CULTURE (BEAKER) (test adfr=3683) No growth in 5 days BLOOD [id number] 16:15:00 Test Item Value Reference Range Comments CULTURE (BEAKER) (test csbd=5993) No growth in 5 days [id number] 06:54:00 Test Item Value Reference Range Comments PHOSPHORUS (BEAKER) (test ozpc=541) 3.3 mg/dL 2.3-4.7 [id number] 06:54:00 Test Item Value Reference Range Comments MAGNESIUM (BEAKER) (test uadb=337) 1.2 mg/dL 1.6-2.6 BASIC METABOLIC [id number] 06:54:00 Test Item Value Reference Range Comments SODIUM (BEAKER) (test 133 meq/L 136-145 yzla=400) POTASSIUM (BEAKER) (test 3.6 meq/L 3.5-5.1 ytbt=446) CHLORIDE (BEAKER) (test 108 meq/L 98-107 agmb=857) CO2 (BEAKER) (test 17 meq/L 22-29 gixi=599) BLOOD UREA NITROGEN 13 mg/dL 7-21 (BEAKER) (test zqyw=971) CREATININE (BEAKER) (test 1.16 mg/dL 0.57-1.25 hsrd=250) GLUCOSE RANDOM (BEAKER) 82 mg/dL 70-105 (test fgaq=363) CALCIUM (BEAKER) (test 8.0 mg/dL 8.4-10.2 ngzh=726) EGFR (BEAKER) (test 66 mL/min/1.73 sq m ESTIMATED GFR IS NOT voux=2822) ACCURATE CREATININE CLEARANCE IN PREDICTING GLOMERULAR FILTRATION RATE. ESTIMATED GFR IS NOT APPLICABLE FOR DIALYSIS PATIENTS. Specimen moderately ictericHEPATIC FUNCTION [id number] 06:54:00 Test Item Value Reference Range Comments TOTAL PROTEIN (BEAKER) (test bcaq=070) 5.7 gm/dL 6.0-8.3 ALBUMIN (BEAKER) (test jitb=7361) 3.1 g/dL 3.5-5.0 BILIRUBIN TOTAL (BEAKER) (test livr=165) 5.2 mg/dL 0.2-1.2 BILIRUBIN DIRECT (BEAKER) (test zbsl=650) 2.6 mg/dL 0.1-0.5 ALKALINE PHOSPHATASE (BEAKER) (test iibr=489) 55 U/L 40-150 AST (SGOT) (BEAKER) (test kgfn=327) 32 U/L 5-34 ALT (SGPT) (BEAKER) (test btwh=133) 9 U/L 6-55 Specimen moderately ictericCALCIUM, [id number] 06:30:00 Test Item Value Reference Range Comments CALCIUM IONIZED (BEAKER) (test xxbp=706) 1.00 mmol/L 1.12-1.27 PH, BLOOD (BEAKER) (test yxkm=0409) 7.52 CBC W/PLT COUNT & AUTO [id number] 06:17:00 Test Item Value Reference Range Comments WHITE BLOOD CELL COUNT (BEAKER) (test tyfq=176) 4.7 K/ L 4.0-10.0 RED BLOOD CELL COUNT (BEAKER) (test yyda=961) 2.05 M/ L 4.20-5.80 HEMOGLOBIN (BEAKER) (test haxd=439) 7.1 GM/DL 13.0-16.8 HEMATOCRIT (BEAKER) (test ahsn=202) 21.1 % 40.0-50.0 MEAN CORPUSCULAR VOLUME (BEAKER) (test mciu=626) 103.0 fL 82.0-98.0 MEAN CORPUSCULAR HEMOGLOBIN (BEAKER) (test 34.8 pg 27.0-33.0 mxpc=870) MEAN CORPUSCULAR HEMOGLOBIN CONC (BEAKER) (test 33.8 GM/DL 32.0-36.0 shci=249) RED CELL DISTRIBUTION WIDTH (BEAKER) (test 13.9 % 10.3-14.2 vcel=239) PLATELET COUNT (BEAKER) (test cqin=414) 71 K/CU MM 150-430 MEAN PLATELET VOLUME (BEAKER) (test bhbf=101) 6.6 fL 6.5-10.5 NUCLEATED RED BLOOD CELLS (BEAKER) (test 0 /100 WBC 0-0 ityw=019) NEUTROPHILS RELATIVE PERCENT (BEAKER) (test 68 % otpu=906) LYMPHOCYTES RELATIVE PERCENT (BEAKER) (test 16 % imfz=950) MONOCYTES RELATIVE PERCENT (BEAKER) (test 12 % ovvy=132) EOSINOPHILS RELATIVE PERCENT (BEAKER) (test 4 % zagb=146) BASOPHILS RELATIVE PERCENT (BEAKER) (test 1 % ijaq=829) NEUTROPHILS ABSOLUTE COUNT (BEAKER) (test 3.21 K/ L 1.80-8.00 bmdb=314) LYMPHOCYTES ABSOLUTE COUNT (BEAKER) (test 0.75 K/ L 1.48-4.50 azuz=798) MONOCYTES ABSOLUTE COUNT (BEAKER) (test zkxc=299) 0.57 K/ L 0.00-1.30 EOSINOPHILS ABSOLUTE COUNT (BEAKER) (test 0.19 K/ L 0.00-0.50 rssf=336) BASOPHILS ABSOLUTE COUNT (BEAKER) (test gmgq=631) 0.03 K/ L 0.00-0.20 0.00PROTHROMBIN [id number] 05:56:00 Test Item Value Reference Range Comments PROTIME (BEAKER) (test rxzp=945) 26.4 seconds 11.7-14.7 INR (BEAKER) (test xyck=253) 2.4 <=5.9 RECOMMENDED COUMADIN/WARFARIN INR THERAPY RANGESSTANDARD DOSE: 2.0 - 3.0 Includes: PROPHYLAXIS forvenous thrombosis, systemic embolization; TREATMENT for venous thrombosis and/or pulmonary embolus.HIGH RISK: Target INR is 2.5-3.5 for patients with mechanical heart valves.BASIC METABOLIC [id number] 04:44: 00 Test Item Value Reference Range Comments SODIUM (BEAKER) (test 134 meq/L 136-145 jghr=113) POTASSIUM (BEAKER) (test 3.6 meq/L 3.5-5.1 eipe=922) CHLORIDE (BEAKER) (test 108 meq/L 98-107 oqti=727) CO2 (BEAKER) (test 19 meq/L 22-29 xajh=026) BLOOD UREA NITROGEN 12 mg/dL 7-21 (BEAKER) (test jggh=824) CREATININE (BEAKER) (test 1.32 mg/dL 0.57-1.25 xrjl=478) GLUCOSE RANDOM (BEAKER) 82 mg/dL 70-105 (test hbbc=122) CALCIUM (BEAKER) (test 7.9 mg/dL 8.4-10.2 eawg=694) EGFR (BEAKER) (test 57 mL/min/1.73 sq m ESTIMATED GFR IS NOT yqfe=7176) ACCURATE CREATININE CLEARANCE IN PREDICTING GLOMERULAR FILTRATION RATE. ESTIMATED GFR IS NOT APPLICABLE FOR DIALYSIS PATIENTS. Specimen moderately ictericHEPATIC FUNCTION [id number] 04:42:00 Test Item Value Reference Range Comments TOTAL PROTEIN (BEAKER) (test twcu=636) 5.8 gm/dL 6.0-8.3 ALBUMIN (BEAKER) (test drzv=6394) 3.1 g/dL 3.5-5.0 BILIRUBIN TOTAL (BEAKER) (test ojps=472) 5.1 mg/dL 0.2-1.2 BILIRUBIN DIRECT (BEAKER) (test xwfr=884) 2.7 mg/dL 0.1-0.5 ALKALINE PHOSPHATASE (BEAKER) (test hqlb=536) 51 U/L 40-150 AST (SGOT) (BEAKER) (test swlw=228) 27 U/L 5-34 ALT (SGPT) (BEAKER) (test mfky=244) 7 U/L 6-55 Specimen moderately ictericCBC W/PLT COUNT & AUTO [id number] 04: 35:00 Test Item Value Reference Range Comments WHITE BLOOD CELL COUNT (BEAKER) (test apxv=556) 4.6 K/ L 4.0-10.0 RED BLOOD CELL COUNT (BEAKER) (test zckm=259) 2.06 M/ L 4.20-5.80 HEMOGLOBIN (BEAKER) (test fvvz=242) 7.2 GM/DL 13.0-16.8 HEMATOCRIT (BEAKER) (test fmio=632) 21.5 % 40.0-50.0 MEAN CORPUSCULAR VOLUME (BEAKER) (test gkhg=498) 104.0 fL 82.0-98.0 MEAN CORPUSCULAR HEMOGLOBIN (BEAKER) (test 35.0 pg 27.0-33.0 mwrv=545) MEAN CORPUSCULAR HEMOGLOBIN CONC (BEAKER) (test 33.6 GM/DL 32.0-36.0 yxzk=644) RED CELL DISTRIBUTION WIDTH (BEAKER) (test 13.4 % 10.3-14.2 gate=428) PLATELET COUNT (BEAKER) (test wrdn=635) 76 K/CU MM 150-430 MEAN PLATELET VOLUME (BEAKER) (test ehub=904) 6.5 fL 6.5-10.5 NUCLEATED RED BLOOD CELLS (BEAKER) (test 0 /100 WBC 0-0 bicw=295) NEUTROPHILS RELATIVE PERCENT (BEAKER) (test 64 % oxys=395) LYMPHOCYTES RELATIVE PERCENT (BEAKER) (test 16 % zara=843) MONOCYTES RELATIVE PERCENT (BEAKER) (test 16 % hovd=480) EOSINOPHILS RELATIVE PERCENT (BEAKER) (test 4 % ntop=095) BASOPHILS RELATIVE PERCENT (BEAKER) (test 1 % sayw=461) NEUTROPHILS ABSOLUTE COUNT (BEAKER) (test 2.89 K/ L 1.80-8.00 xnyx=309) LYMPHOCYTES ABSOLUTE COUNT (BEAKER) (test 0.72 K/ L 1.48-4.50 oqca=283) MONOCYTES ABSOLUTE COUNT (BEAKER) (test zpiu=527) 0.71 K/ L 0.00-1.30 EOSINOPHILS ABSOLUTE COUNT (BEAKER) (test 0.20 K/ L 0.00-0.50 eusn=216) BASOPHILS ABSOLUTE COUNT (BEAKER) (test hbju=022) 0.03 K/ L 0.00-0.20 0.00PROTHROMBIN [id number] 04:33:00 Test Item Value Reference Range Comments PROTIME (BEAKER) (test pyys=876) 30.2 seconds 11.7-14.7 INR (BEAKER) (test roky=219) 2.9 <=5.9 RECOMMENDED COUMADIN/WARFARIN INR THERAPY RANGESSTANDARD DOSE: 2.0 - 3.0 Includes: PROPHYLAXIS forvenous thrombosis, systemic embolization; TREATMENT for venous thrombosis and/or pulmonary embolus.HIGH RISK: Target INR is 2.5-3.5 for patients with mechanical heart valves.VANCOMYCIN LEVEL, [id number] 17: 04:00 Test Item Value Reference Range Comments VANCOMYCIN TROUGH (BEAKER) (test auqv=695) 12.2 ug/mL 10.0-20.0 URINE [id number] 14:25:00 Test Item Value Reference Range Comments CULTURE (BEAKER) (test zskr=9046) No growth TSH/FREE T4 IF [id number] 14:22:00 Test Item Value Reference Range Comments THYROID STIMULATING HORMONE (BEAKER) (test 3.53 uIU/mL 0.35-4.94 osar=916) URINE [id number] 11:43:00 Test Item Value Reference Range Comments CULTURE (BEAKER) (test utaf=0468) No growth CBC W/PLT COUNT & AUTO [id number] 07:55:00 Test Item Value Reference Range Comments WHITE BLOOD CELL COUNT (BEAKER) (test tbnp=215) 4.5 K/ L 4.0-10.0 RED BLOOD CELL COUNT (BEAKER) (test hxtq=655) 2.06 M/ L 4.20-5.80 HEMOGLOBIN (BEAKER) (test ycwx=723) 7.1 GM/DL 13.0-16.8 HEMATOCRIT (BEAKER) (test jznn=469) 21.5 % 40.0-50.0 MEAN CORPUSCULAR VOLUME (BEAKER) (test rqfc=972) 104.0 fL 82.0-98.0 MEAN CORPUSCULAR HEMOGLOBIN (BEAKER) (test 34.5 pg 27.0-33.0 ffwk=209) MEAN CORPUSCULAR HEMOGLOBIN CONC (BEAKER) (test 33.1 GM/DL 32.0-36.0 zwfk=413) RED CELL DISTRIBUTION WIDTH (BEAKER) (test 13.4 % 10.3-14.2 hcpm=697) PLATELET COUNT (BEAKER) (test rexw=370) 79 K/CU MM 150-430 MEAN PLATELET VOLUME (BEAKER) (test xzbs=851) 6.8 fL 6.5-10.5 NUCLEATED RED BLOOD CELLS (BEAKER) (test 0 /100 WBC 0-0 yvbn=744) NEUTROPHILS RELATIVE PERCENT (BEAKER) (test 64 % uixd=028) LYMPHOCYTES RELATIVE PERCENT (BEAKER) (test 16 % vqvd=476) MONOCYTES RELATIVE PERCENT (BEAKER) (test 15 % bfwo=135) EOSINOPHILS RELATIVE PERCENT (BEAKER) (test 5 % vblw=506) BASOPHILS RELATIVE PERCENT (BEAKER) (test 0 % uuhl=772) NEUTROPHILS ABSOLUTE COUNT (BEAKER) (test 2.88 K/ L 1.80-8.00 empa=870) LYMPHOCYTES ABSOLUTE COUNT (BEAKER) (test 0.73 K/ L 1.48-4.50 erxs=239) MONOCYTES ABSOLUTE COUNT (BEAKER) (test squw=838) 0.68 K/ L 0.00-1.30 EOSINOPHILS ABSOLUTE COUNT (BEAKER) (test 0.23 K/ L 0.00-0.50 pnuh=066) BASOPHILS ABSOLUTE COUNT (BEAKER) (test jaoe=260) 0.02 K/ L 0.00-0.20 0.00BASI METABOLIC [id number] 05:58:00 Test Item Value Reference Range Comments SODIUM (BEAKER) (test 137 meq/L 136-145 ofza=399) POTASSIUM (BEAKER) (test 3.7 meq/L 3.5-5.1 aizs=179) CHLORIDE (BEAKER) (test 110 meq/L 98-107 gsjw=450) CO2 (BEAKER) (test 19 meq/L 22-29 pvyp=675) BLOOD UREA NITROGEN 12 mg/dL 7-21 (BEAKER) (test yulo=598) CREATININE (BEAKER) (test 1.29 mg/dL 0.57-1.25 hdks=583) GLUCOSE RANDOM (BEAKER) 80 mg/dL 70-105 (test ijvd=924) CALCIUM (BEAKER) (test 8.1 mg/dL 8.4-10.2 pipw=629) EGFR (BEAKER) (test 59 mL/min/1.73 sq m ESTIMATED GFR IS NOT zvxy=7600) ACCURATE CREATININE CLEARANCE IN PREDICTING GLOMERULAR FILTRATION RATE. ESTIMATED GFR IS NOT APPLICABLE FOR DIALYSIS PATIENTS. Specimen moderately ictericHEPATIC FUNCTION [id number] 05:58:00 Test Item Value Reference Range Comments TOTAL PROTEIN (BEAKER) (test qqyn=029) 5.9 gm/dL 6.0-8.3 ALBUMIN (BEAKER) (test faec=0949) 3.4 g/dL 3.5-5.0 BILIRUBIN TOTAL (BEAKER) (test jnct=797) 5.6 mg/dL 0.2-1.2 BILIRUBIN DIRECT (BEAKER) (test csup=231) 2.6 mg/dL 0.1-0.5 ALKALINE PHOSPHATASE (BEAKER) (test kmar=196) 50 U/L 40-150 AST (SGOT) (BEAKER) (test vzir=935) 30 U/L 5-34 ALT (SGPT) (BEAKER) (test nnxt=248) 9 U/L 6-55 Specimen moderately ictericPROTHROMBIN [id number] 05:31:00 Test Item Value Reference Range Comments PROTIME (BEAKER) (test tpsj=374) 29.0 seconds 11.7-14.7 INR (BEAKER) (test efga=963) 2.7 <=5.9 RECOMMENDED COUMADIN/WARFARIN INR THERAPY RANGESSTANDARD DOSE: 2.0 - 3.0 Includes: PROPHYLAXIS forvenous thrombosis, systemic embolization; TREATMENT for venous thrombosis and/or pulmonary embolus.HIGH RISK: Target INR is 2.5-3.5 for patients with mechanical heart valves.ANAEROBIC [id number] 05:15:00 Test Item Value Reference Range Comments CULTURE (BEAKER) (test vwvz=5907) No anaerobes isolated BLOOD [id number] 00:00:00 Test Item Value Reference Range Comments CULTURE (BEAKER) (test xspb=4608) No growth in 5 days BLOOD [id number] 00:00:00 Test Item Value Reference Range Comments CULTURE (BEAKER) (test dxsd=4337) No growth in 5 days URINALYSIS W/ REFLEX URINE [id number] 08:28:00 Test Item Value Reference Range Comments COLOR (BEAKER) (test autr=527) Yellow CLARITY (BEAKER) (test gwlb=411) Clear SPECIFIC GRAVITY UA (BEAKER) (test lsfj=930) 1.006 1.001-1.035 PH UA (BEAKER) (test bvzr=255) 6.5 5.0-8.0 PROTEIN UA (BEAKER) (test rcuk=007) Negative Negative GLUCOSE UA (BEAKER) (test wups=607) Negative Negative KETONES UA (BEAKER) (test chwe=766) Negative Negative BILIRUBIN UA (BEAKER) (test jgdq=439) Negative Negative BLOOD UA (BEAKER) (test kvtg=327) Negative Negative NITRITE UA (BEAKER) (test hoxt=536) Negative Negative LEUKOCYTE ESTERASE UA (BEAKER) (test jsxo=218) Small Negative UROBILINOGEN UA (BEAKER) (test sapk=401) 0.2 mg/dL 0.2-1.0 RBC UA (BEAKER) (test oofm=356) 1 /HPF WBC UA (BEAKER) (test wfon=848) 6 /HPF BACTERIA (BEAKER) (test frzi=043) Rare SOURCE(BEAKER) (test xfmw=7743) CBC W/PLT COUNT & AUTO [id number] 07:21:00 Test Item Value Reference Range Comments WHITE BLOOD CELL COUNT (BEAKER) (test lieq=404) 5.9 K/ L 4.0-10.0 RED BLOOD CELL COUNT (BEAKER) (test fvza=665) 2.12 M/ L 4.20-5.80 HEMOGLOBIN (BEAKER) (test yreu=995) 7.3 GM/DL 13.0-16.8 HEMATOCRIT (BEAKER) (test zpwl=365) 22.2 % 40.0-50.0 MEAN CORPUSCULAR VOLUME (BEAKER) (test bfjt=176) 105.0 fL 82.0-98.0 MEAN CORPUSCULAR HEMOGLOBIN (BEAKER) (test 34.2 pg 27.0-33.0 egdm=658) MEAN CORPUSCULAR HEMOGLOBIN CONC (BEAKER) (test 32.7 GM/DL 32.0-36.0 ufhg=569) RED CELL DISTRIBUTION WIDTH (BEAKER) (test 13.1 % 10.3-14.2 wlet=433) PLATELET COUNT (BEAKER) (test dgsb=494) 80 K/CU MM 150-430 MEAN PLATELET VOLUME (BEAKER) (test rjyn=819) 6.5 fL 6.5-10.5 NUCLEATED RED BLOOD CELLS (BEAKER) (test 0 /100 WBC 0-0 qwdp=329) NEUTROPHILS RELATIVE PERCENT (BEAKER) (test 67 % lpfp=586) LYMPHOCYTES RELATIVE PERCENT (BEAKER) (test 14 % zavh=581) MONOCYTES RELATIVE PERCENT (BEAKER) (test 14 % kkpo=821) EOSINOPHILS RELATIVE PERCENT (BEAKER) (test 4 % zocg=082) BASOPHILS RELATIVE PERCENT (BEAKER) (test 0 % tnrj=011) NEUTROPHILS ABSOLUTE COUNT (BEAKER) (test 3.97 K/ L 1.80-8.00 gpze=605) LYMPHOCYTES ABSOLUTE COUNT (BEAKER) (test 0.85 K/ L 1.48-4.50 tniz=448) MONOCYTES ABSOLUTE COUNT (BEAKER) (test kuvw=111) 0.81 K/ L 0.00-1.30 EOSINOPHILS ABSOLUTE COUNT (BEAKER) (test 0.25 K/ L 0.00-0.50 tevj=963) BASOPHILS ABSOLUTE COUNT (BEAKER) (test dvdi=191) 0.03 K/ L 0.00-0.20 [id number] 06:35:00 Test Item Value Reference Range Comments PHOSPHORUS (BEAKER) (test ckod=538) 3.5 mg/dL 2.3-4.7 [id number] 06:35:00 Test Item Value Reference Range Comments MAGNESIUM (BEAKER) (test ihef=444) 1.7 mg/dL 1.6-2.6 BASIC METABOLIC [id number] 06:35:00 Test Item Value Reference Range Comments SODIUM (BEAKER) (test 137 meq/L 136-145 fmqj=110) POTASSIUM (BEAKER) (test 4.0 meq/L 3.5-5.1 hgpc=867) CHLORIDE (BEAKER) (test 109 meq/L 98-107 zczf=138) CO2 (BEAKER) (test 20 meq/L 22-29 ijoo=520) BLOOD UREA NITROGEN 13 mg/dL 7-21 (BEAKER) (test vgav=665) CREATININE (BEAKER) (test 1.56 mg/dL 0.57-1.25 tyik=639) GLUCOSE RANDOM (BEAKER) 85 mg/dL 70-105 (test djhx=707) CALCIUM (BEAKER) (test 8.4 mg/dL 8.4-10.2 exmp=702) EGFR (BEAKER) (test 47 mL/min/1.73 sq m ESTIMATED GFR IS NOT jxet=3012) ACCURATE CREATININE CLEARANCE IN PREDICTING GLOMERULAR FILTRATION RATE. ESTIMATED GFR IS NOT APPLICABLE FOR DIALYSIS PATIENTS. Specimen moderately ictericHEPATIC FUNCTION [id number] 06:35:00 Test Item Value Reference Range Comments TOTAL PROTEIN (BEAKER) (test flhr=400) 6.5 gm/dL 6.0-8.3 ALBUMIN (BEAKER) (test bcgw=6988) 3.8 g/dL 3.5-5.0 BILIRUBIN TOTAL (BEAKER) (test kjyi=809) 6.1 mg/dL 0.2-1.2 BILIRUBIN DIRECT (BEAKER) (test vsjt=136) 2.9 mg/dL 0.1-0.5 ALKALINE PHOSPHATASE (BEAKER) (test ldgu=105) 54 U/L 40-150 AST (SGOT) (BEAKER) (test jhgz=519) 28 U/L 5-34 ALT (SGPT) (BEAKER) (test cgkn=559) 7 U/L 6-55 Specimen moderately ictericPROTHROMBIN TIME/[id number] 06:06:00 Test Item Value Reference Range Comments PROTIME (BEAKER) (test gnsc=165) 26.1 seconds 11.7-14.7 INR (BEAKER) (test zpis=480) 2.4 <=5.9 RECOMMENDED COUMADIN/WARFARIN INR THERAPY RANGESSTANDARD DOSE: 2.0 - 3.0 Includes: PROPHYLAXIS forvenous thrombosis, systemic embolization; TREATMENT for venous thrombosis and/or pulmonary embolus.HIGH RISK: Target INR is 2.5-3.5 for patients with mechanical heart valves.CALCIUM, [id number] 06:06:00 Test Item Value Reference Range Comments CALCIUM IONIZED (BEAKER) (test ybny=911) 1.06 mmol/L 1.12-1.27 PH, BLOOD (BEAKER) (test irfq=5238) 7.46 SURGICALLY OBTAINED CULTURE + GRAM [id number] 23:51:00 Test Item Value Reference Range Comments CULTURE (BEAKER) (test ukgs=8370) No growth GRAM STAIN RESULT (BEAKER) (test 1+ WBCs gohk=1920) GRAM STAIN RESULT (BEAKER) (test No organisms seen qhea=16939) BODY FLUID CULTURE + GRAM [id number] 23:42:00 Test Item Value Reference Range Comments CULTURE (BEAKER) (test bzmm=8026) No growth GRAM STAIN RESULT (BEAKER) (test 1+ WBCs peap=0850) GRAM STAIN RESULT (BEAKER) (test No organisms seen ycqw=84353) BODY FLUID CELL COUNT WITH [id number] 19:59:00 Test Item Value Reference Range Comments APPEARANCE FLUID (BEAKER) (test kgzf=681) Hazy Clear COLOR FLUID (BEAKER) (test nhby=607) Yellow Colorless, Straw RBC FLUID (BEAKER) (test elyx=684) 2435 /cu mm <=1 ADJUSTED WBC FLUID (BEAKER) (test fsmy=1847) 441 /cu mm <=5 LINING CELLS (BEAKER) (test ncmr=8900) 9 /cu mm <=1 NEUTROPHILS FLUID (BEAKER) (test cjlj=7231) 16 % LYMPHS FLUID (BEAKER) (test oqjb=813) 10 % MONO/MACROPHAGE FLUID (BEAKER) (test syme=116) 74 % EOSINOPHILS FLUID (BEAKER) (test bvzh=848) 0 % BASO FLUID (BEAKER) (test zpvw=201) 0 % CONTAINER BODY FLUID (BEAKER) (test gyxa=1271) EDTA Tube [id number] 11:01:00 Test Item Value Reference Range Comments PROCALCITONIN (BEAKER) (test ctuy=2206) 0.25 ng/mL <0.05 SEPSIS RISK (ng/mL)Low: 0.05-0.50Intermediate: 0.51-2.00High: & gt;=2.01CBC W/PLT COUNT & AUTO [id number] 08:40:00 Test Item Value Reference Range Comments WHITE BLOOD CELL COUNT (BEAKER) (test spvq=657) 6.3 K/ L 4.0-10.0 RED BLOOD CELL COUNT (BEAKER) (test ppqi=505) 2.07 M/ L 4.20-5.80 HEMOGLOBIN (BEAKER) (test riur=442) 7.1 GM/DL 13.0-16.8 HEMATOCRIT (BEAKER) (test jfia=662) 21.9 % 40.0-50.0 MEAN CORPUSCULAR VOLUME (BEAKER) (test adjv=361) 106.0 fL 82.0-98.0 MEAN CORPUSCULAR HEMOGLOBIN (BEAKER) (test 34.1 pg 27.0-33.0 cifz=986) MEAN CORPUSCULAR HEMOGLOBIN CONC (BEAKER) (test 32.2 GM/DL 32.0-36.0 obea=426) RED CELL DISTRIBUTION WIDTH (BEAKER) (test 13.1 % 10.3-14.2 pmrq=437) PLATELET COUNT (BEAKER) (test vuak=951) 78 K/CU MM 150-430 MEAN PLATELET VOLUME (BEAKER) (test xzas=098) 6.6 fL 6.5-10.5 NUCLEATED RED BLOOD CELLS (BEAKER) (test 0 /100 WBC 0-0 qudg=518) NEUTROPHILS RELATIVE PERCENT (BEAKER) (test 73 % iycl=765) LYMPHOCYTES RELATIVE PERCENT (BEAKER) (test 10 % jsxp=093) MONOCYTES RELATIVE PERCENT (BEAKER) (test 13 % tmkm=027) EOSINOPHILS RELATIVE PERCENT (BEAKER) (test 4 % omer=676) BASOPHILS RELATIVE PERCENT (BEAKER) (test 0 % ahmf=936) NEUTROPHILS ABSOLUTE COUNT (BEAKER) (test 4.60 K/ L 1.80-8.00 ojni=501) LYMPHOCYTES ABSOLUTE COUNT (BEAKER) (test 0.64 K/ L 1.48-4.50 jfjl=028) MONOCYTES ABSOLUTE COUNT (BEAKER) (test qyke=273) 0.81 K/ L 0.00-1.30 EOSINOPHILS ABSOLUTE COUNT (BEAKER) (test 0.23 K/ L 0.00-0.50 vwfc=276) BASOPHILS ABSOLUTE COUNT (BEAKER) (test nnzd=928) 0.01 K/ L 0.00-0.20 [id number] 06:50:00 Test Item Value Reference Range Comments PHOSPHORUS (BEAKER) (test ogjo=419) 3.0 mg/dL 2.3-4.7 [id number] 06:50:00 Test Item Value Reference Range Comments MAGNESIUM (BEAKER) (test pezf=004) 1.9 mg/dL 1.6-2.6 BASIC METABOLIC [id number] 06:50:00 Test Item Value Reference Range Comments SODIUM (BEAKER) (test 135 meq/L 136-145 rupv=899) POTASSIUM (BEAKER) (test 4.2 meq/L 3.5-5.1 ssam=924) CHLORIDE (BEAKER) (test 106 meq/L 98-107 clmt=359) CO2 (BEAKER) (test 21 meq/L 22-29 sosr=143) BLOOD UREA NITROGEN 19 mg/dL 7-21 (BEAKER) (test xxlu=337) CREATININE (BEAKER) (test 1.62 mg/dL 0.57-1.25 sjfn=387) GLUCOSE RANDOM (BEAKER) 98 mg/dL 70-105 (test ogfv=187) CALCIUM (BEAKER) (test 8.6 mg/dL 8.4-10.2 kllf=277) EGFR (BEAKER) (test 45 mL/min/1.73 sq m ESTIMATED GFR IS NOT adke=0014) ACCURATE CREATININE CLEARANCE IN PREDICTING GLOMERULAR FILTRATION RATE. ESTIMATED GFR IS NOT APPLICABLE FOR DIALYSIS PATIENTS. Specimen moderately ictericHEPATIC FUNCTION [id number] 06:50:00 Test Item Value Reference Range Comments TOTAL PROTEIN (BEAKER) (test qqco=719) 6.3 gm/dL 6.0-8.3 ALBUMIN (BEAKER) (test zyrl=1292) 3.7 g/dL 3.5-5.0 BILIRUBIN TOTAL (BEAKER) (test rwae=722) 6.2 mg/dL 0.2-1.2 BILIRUBIN DIRECT (BEAKER) (test tjnb=559) 2.8 mg/dL 0.1-0.5 ALKALINE PHOSPHATASE (BEAKER) (test umbz=974) 54 U/L 40-150 AST (SGOT) (BEAKER) (test kiqi=152) 29 U/L 5-34 ALT (SGPT) (BEAKER) (test isph=549) 8 U/L 6-55 Specimen moderately ictericCALCIUM, [id number] 06:48:00 Test Item Value Reference Range Comments CALCIUM IONIZED (BEAKER) (test dvck=449) 1.12 mmol/L 1.12-1.27 PH, BLOOD (BEAKER) (test rmcd=2985) 7.33 PROTHROMBIN [id number] 06:24:00 Test Item Value Reference Range Comments PROTIME (BEAKER) (test wzgz=632) 25.4 seconds 11.7-14.7 INR (BEAKER) (test rvrv=750) 2.3 <=5.9 RECOMMENDED COUMADIN/WARFARIN INR THERAPY RANGESSTANDARD DOSE: 2.0 - 3.0 Includes: PROPHYLAXIS forvenous thrombosis, systemic embolization; TREATMENT for venous thrombosis and/or pulmonary embolus.HIGH RISK: Target INR is 2.5-3.5 for patients with mechanical heart valves.[id number] 11:17:00 Test Item Value Reference Range Comments FIBRINOGEN LEVEL (BEAKER) (test msar=853) 115 mg/dl 225-434 CALCIUM, [id number] 06:04:00 Test Item Value Reference Range Comments CALCIUM IONIZED (BEAKER) (test flbt=995) 1.08 mmol/L 1.12-1.27 PH, BLOOD (BEAKER) (test dmta=0129) 7.41 CBC W/PLT COUNT & AUTO [id number] 05:28:00 Test Item Value Reference Range Comments WHITE BLOOD CELL COUNT (BEAKER) (test myoi=580) 5.6 K/ L 4.0-10.0 RED BLOOD CELL COUNT (BEAKER) (test eqri=287) 2.00 M/ L 4.20-5.80 HEMOGLOBIN (BEAKER) (test hfel=940) 7.2 GM/DL 13.0-16.8 HEMATOCRIT (BEAKER) (test mozw=006) 21.2 % 40.0-50.0 MEAN CORPUSCULAR VOLUME (BEAKER) (test adry=165) 106.0 fL 82.0-98.0 MEAN CORPUSCULAR HEMOGLOBIN (BEAKER) (test 36.0 pg 27.0-33.0 twdh=332) MEAN CORPUSCULAR HEMOGLOBIN CONC (BEAKER) (test 34.0 GM/DL 32.0-36.0 bmsp=508) RED CELL DISTRIBUTION WIDTH (BEAKER) (test 13.9 % 10.3-14.2 daju=571) PLATELET COUNT (BEAKER) (test qgcq=045) 74 K/CU MM 150-430 MEAN PLATELET VOLUME (BEAKER) (test vdum=070) 6.6 fL 6.5-10.5 NUCLEATED RED BLOOD CELLS (BEAKER) (test 0 /100 WBC 0-0 jjre=126) NEUTROPHILS RELATIVE PERCENT (BEAKER) (test 66 % kfbv=247) LYMPHOCYTES RELATIVE PERCENT (BEAKER) (test 14 % vugd=612) MONOCYTES RELATIVE PERCENT (BEAKER) (test 13 % asht=176) EOSINOPHILS RELATIVE PERCENT (BEAKER) (test 7 % lmgg=846) BASOPHILS RELATIVE PERCENT (BEAKER) (test 0 % bxqo=753) NEUTROPHILS ABSOLUTE COUNT (BEAKER) (test 3.67 K/ L 1.80-8.00 weqo=834) LYMPHOCYTES ABSOLUTE COUNT (BEAKER) (test 0.80 K/ L 1.48-4.50 rkuy=688) MONOCYTES ABSOLUTE COUNT (BEAKER) (test lrea=828) 0.69 K/ L 0.00-1.30 EOSINOPHILS ABSOLUTE COUNT (BEAKER) (test 0.38 K/ L 0.00-0.50 hcqd=906) BASOPHILS ABSOLUTE COUNT (BEAKER) (test pwqb=121) 0.02 K/ L 0.00-0.20 0.00PROTHROMBIN [id number] 05:11:00 Test Item Value Reference Range Comments PROTIME (BEAKER) (test ztet=687) 25.9 seconds 11.7-14.7 INR (BEAKER) (test cdbn=928) 2.4 <=5.9 RECOMMENDED COUMADIN/WARFARIN INR THERAPY RANGESSTANDARD DOSE: 2.0 - 3.0 Includes: PROPHYLAXIS forvenous thrombosis, systemic embolization; TREATMENT for venous thrombosis and/or pulmonary embolus.HIGH RISK: Target INR is 2.5-3.5 for patients with mechanical heart valves.[id number] 05:03:00 Test Item Value Reference Range Comments PHOSPHORUS (BEAKER) (test yita=532) 3.5 mg/dL 2.3-4.7 [id number] 05:03:00 Test Item Value Reference Range Comments MAGNESIUM (BEAKER) (test ksik=843) 1.7 mg/dL 1.6-2.6 BASIC METABOLIC [id number] 05:03:00 Test Item Value Reference Range Comments SODIUM (BEAKER) (test 135 meq/L 136-145 mbit=846) POTASSIUM (BEAKER) (test 4.0 meq/L 3.5-5.1 kird=123) CHLORIDE (BEAKER) (test 107 meq/L 98-107 mpqo=369) CO2 (BEAKER) (test 20 meq/L 22-29 ldag=571) BLOOD UREA NITROGEN 22 mg/dL 7-21 (BEAKER) (test tcut=047) CREATININE (BEAKER) (test 1.77 mg/dL 0.57-1.25 kfxq=152) GLUCOSE RANDOM (BEAKER) 83 mg/dL 70-105 (test hrjj=912) CALCIUM (BEAKER) (test 8.3 mg/dL 8.4-10.2 tirv=682) EGFR (BEAKER) (test 41 mL/min/1.73 sq m ESTIMATED GFR IS NOT zilt=5638) ACCURATE CREATININE CLEARANCE IN PREDICTING GLOMERULAR FILTRATION RATE. ESTIMATED GFR IS NOT APPLICABLE FOR DIALYSIS PATIENTS. Specimen moderately ictericHEPATIC FUNCTION [id number] 05:03:00 Test Item Value Reference Range Comments TOTAL PROTEIN (BEAKER) (test afix=965) 6.2 gm/dL 6.0-8.3 ALBUMIN (BEAKER) (test azim=9827) 3.7 g/dL 3.5-5.0 BILIRUBIN TOTAL (BEAKER) (test tdan=827) 6.0 mg/dL 0.2-1.2 BILIRUBIN DIRECT (BEAKER) (test drbr=969) 2.6 mg/dL 0.1-0.5 ALKALINE PHOSPHATASE (BEAKER) (test vxuk=062) 48 U/L 40-150 AST (SGOT) (BEAKER) (test ctpo=906) 26 U/L 5-34 ALT (SGPT) (BEAKER) (test rqex=070) 8 U/L 6-55 Specimen moderately ictericURINE [id number] 14:42:00 Test Item Value Reference Range Comments CULTURE (BEAKER) (test wgpj=6090) No growth ANTI-NUCLEAR ANTIBODY (CHERYL)[id number] 13:32:00 Test Item Value Reference Range Comments ANTI-NUCLEAR ANTIBODY (CHERYL) (BEAKER) (test Negative Negative owfv=506) PLATELET [id number] 06:30:00 Test Item Value Reference Range Comments PLATELET COUNT (BEAKER) (test wira=667) 104 K/CU MM 150-430 [id number] 06:22:00 Test Item Value Reference Range Comments FIBRINOGEN LEVEL (BEAKER) (test rerm=867) 106 mg/dl 225-434 [id number] 06:16:00 Test Item Value Reference Range Comments PARTIAL THROMBOPLASTIN TIME (BEAKER) (test 48.1 seconds 22.5-36.0 ojsd=231) PROTHROMBIN [id number] 06:15:00 Test Item Value Reference Range Comments PROTIME (BEAKER) (test ghai=779) 23.5 seconds 11.7-14.7 INR (BEAKER) (test lchw=089) 2.1 <=5.9 RECOMMENDED COUMADIN/WARFARIN INR THERAPY RANGESSTANDARD DOSE: 2.0 - 3.0 Includes: PROPHYLAXIS forvenous thrombosis, systemic embolization; TREATMENT for venous thrombosis and/or pulmonary embolus.HIGH RISK: Target INR is 2.5-3.5 for patients with mechanical heart valves.[id number] 06:12:00 Test Item Value Reference Range Comments MAGNESIUM (BEAKER) (test 2.0 mg/dL 1.6-2.6 Specimen slightly hemolyzed obzs=552) [id number] 06:12:00 Test Item Value Reference Range Comments PHOSPHORUS (BEAKER) (test 5.0 mg/dL 2.3-4.7 Specimen slightly hemolyzed bajo=049) BASIC METABOLIC [id number] 06:12:00 Test Item Value Reference Range Comments SODIUM (BEAKER) (test 135 meq/L 136-145 rciz=985) POTASSIUM (BEAKER) (test 4.7 meq/L 3.5-5.1 Specimen slightly ktko=188) hemolyzed CHLORIDE (BEAKER) (test 107 meq/L 98-107 mvlp=722) CO2 (BEAKER) (test 20 meq/L 22-29 spcm=892) BLOOD UREA NITROGEN 18 mg/dL 7-21 (BEAKER) (test gmth=725) CREATININE (BEAKER) (test 1.74 mg/dL 0.57-1.25 Specimen slightly azoc=091) hemolyzed GLUCOSE RANDOM (BEAKER) 76 mg/dL 70-105 (test bmmd=589) CALCIUM (BEAKER) (test 8.1 mg/dL 8.4-10.2 zccf=848) EGFR (BEAKER) (test 42 mL/min/1.73 sq m ESTIMATED GFR IS NOT redt=0197) ACCURATE CREATININE CLEARANCE IN PREDICTING GLOMERULAR FILTRATION RATE. ESTIMATED GFR IS NOT APPLICABLE FOR DIALYSIS PATIENTS. Specimen moderately ictericHEPATIC FUNCTION [id number] 06:12:00 Test Item Value Reference Range Comments TOTAL PROTEIN (BEAKER) (test 6.6 gm/dL 6.0-8.3 Specimen slightly hemolyzed thhz=958) ALBUMIN (BEAKER) (test 3.7 g/dL 3.5-5.0 Specimen slightly hemolyzed bnyz=4976) BILIRUBIN TOTAL (BEAKER) (test 5.7 mg/dL 0.2-1.2 Specimen slightly hemolyzed annr=783) BILIRUBIN DIRECT (BEAKER) (test 2.7 mg/dL 0.1-0.5 Specimen slightly hemolyzed ebmj=336) ALKALINE PHOSPHATASE (BEAKER) 56 U/L 40-150 (test btto=105) AST (SGOT) (BEAKER) (test 29 U/L 5-34 Specimen slightly hemolyzed fkvp=815) ALT (SGPT) (BEAKER) (test 7 U/L 6-55 Specimen slightly hemolyzed qjpe=233) Specimen moderately ictericLACTIC ACID, VENOUS, WHOLE [id number] 06:04:00 Test Item Value Reference Range Comments LACTATE BLOOD VENOUS (2) (BEAKER) (test 1.0 mmol/L 0.5-2.2 rmma=2120) Effective 02/28/2016: Units/Reference Range ChangeNew: 0.5-2.2 mmol/L Previous: 5 -20 mg/dLSpecimen moderately ictericCALCIUM, [id number] 05:56:00 Test Item Value Reference Range Comments CALCIUM IONIZED (BEAKER) (test tmvr=422) 1.00 mmol/L 1.12-1.27 PH, BLOOD (BEAKER) (test tety=4146) 7.34 [id number] 21:34:00 Test Item Value Reference Range Comments FIBRINOGEN LEVEL (BEAKER) (test fctm=342) 105 mg/dl 225-434 PLATELET [id number] 20:52:00 Test Item Value Reference Range Comments PLATELET COUNT (BEAKER) (test ybeh=993) 77 K/CU MM 150-430 PT/[id number] 20:51:00 Test Item Value Reference Range Comments PROTIME (BEAKER) (test eoyb=885) 21.1 seconds 11.7-14.7 INR (BEAKER) (test qhuo=601) 1.8 <=5.9 PARTIAL THROMBOPLASTIN TIME (BEAKER) (test 47.3 seconds 22.5-36.0 zrcn=937) RECOMMENDED COUMADIN/WARFARIN INR THERAPY RANGESSTANDARD DOSE: 2.0 - 3.0 Includes: PROPHYLAXIS forvenous thrombosis, systemic embolization; TREATMENT for venous thrombosis and/or pulmonary embolus.HIGH RISK: Target INR is 2.5-3.5 for patients with mechanical heart valves.[id number] 20:51:00 Test Item Value Reference Range Comments PARTIAL THROMBOPLASTIN TIME (BEAKER) (test 47.3 seconds 22.5-36.0 jtmg=218) PROTHROMBIN TIME/[id number] 20:50:00 Test Item Value Reference Range Comments PROTIME (BEAKER) (test tkfe=618) 21.1 seconds 11.7-14.7 INR (BEAKER) (test lrqk=451) 1.8 <=5.9 RECOMMENDED COUMADIN/WARFARIN INR THERAPY RANGESSTANDARD DOSE: 2.0 - 3.0 Includes: PROPHYLAXIS forvenous thrombosis, systemic embolization; TREATMENT for venous thrombosis and/or pulmonary embolus.HIGH RISK: Target INR is 2.5-3.5 for patients with mechanical heart valves.[id number] 19:30:00 Test Item Value Reference Range Comments PARTIAL THROMBOPLASTIN TIME (BEAKER) (test 45.1 seconds 22.5-36.0 xxgg=988) PROTHROMBIN TIME/[id number] 19:29:00 Test Item Value Reference Range Comments PROTIME (BEAKER) (test qwep=284) 28.2 seconds 11.7-14.7 INR (BEAKER) (test aikk=323) 2.6 <=5.9 RECOMMENDED COUMADIN/WARFARIN INR THERAPY RANGESSTANDARD DOSE: 2.0 - 3.0 Includes: PROPHYLAXIS forvenous thrombosis, systemic embolization; TREATMENT for venous thrombosis and/or pulmonary embolus.HIGH RISK: Target INR is 2.5-3.5 for patients with mechanical heart valves.BODY FLUID CELL COUNT WITH [id number] 18:53:00 Test Item Value Reference Range Comments APPEARANCE FLUID (BEAKER) (test bquk=536) Hazy Clear COLOR FLUID (BEAKER) (test qtet=990) Yellow Colorless, Straw RBC FLUID (BEAKER) (test sepp=052) 900 /cu mm <=1 ADJUSTED WBC FLUID (BEAKER) (test smtz=4643) 306 /cu mm <=5 LINING CELLS (BEAKER) (test ccdl=3903) 64 /cu mm <=1 NEUTROPHILS FLUID (BEAKER) (test eoua=2175) 4 % LYMPHS FLUID (BEAKER) (test josz=289) 18 % MONO/MACROPHAGE FLUID (BEAKER) (test opza=367) 78 % EOSINOPHILS FLUID (BEAKER) (test gxeg=272) 0 % BASO FLUID (BEAKER) (test piyt=482) 0 % CONTAINER BODY FLUID (BEAKER) (test uwpa=5383) EDTA Tube [id number] 16:56:00 Test Item Value Reference Range Comments AMYLASE (BEAKER) (test abvj=346) 37 U/L 25-125 Specimen moderately ictericCOMPREHENSIVE METABOLIC [id number] 16:56:00 Test Item Value Reference Range Comments TOTAL PROTEIN (BEAKER) 6.1 gm/dL 6.0-8.3 (test zrdf=804) ALBUMIN (BEAKER) (test 3.2 g/dL 3.5-5.0 bbre=1815) ALKALINE PHOSPHATASE 67 U/L 40-150 (BEAKER) (test pyds=825) BILIRUBIN TOTAL (BEAKER) 5.7 mg/dL 0.2-1.2 (test hvrv=119) SODIUM (BEAKER) (test 134 meq/L 136-145 wmrt=222) POTASSIUM (BEAKER) (test 3.8 meq/L 3.5-5.1 vgwi=503) CHLORIDE (BEAKER) (test 106 meq/L 98-107 fprv=349) CO2 (BEAKER) (test 19 meq/L 22-29 qrjn=990) BLOOD UREA NITROGEN 18 mg/dL 7-21 (BEAKER) (test cxzz=885) CREATININE (BEAKER) (test 1.52 mg/dL 0.57-1.25 ummp=171) GLUCOSE RANDOM (BEAKER) 112 mg/dL 70-105 (test vbsv=749) CALCIUM (BEAKER) (test 8.3 mg/dL 8.4-10.2 kzeo=837) AST (SGOT) (BEAKER) (test 28 U/L 5-34 jqjc=005) ALT (SGPT) (BEAKER) (test 10 U/L 6-55 uilq=126) EGFR (BEAKER) (test 49 mL/min/1.73 sq m ESTIMATED GFR IS NOT kbfd=5798) ACCURATE CREATININE CLEARANCE IN PREDICTING GLOMERULAR FILTRATION RATE. ESTIMATED GFR IS NOT APPLICABLE FOR DIALYSIS PATIENTS. Specimen moderately [id number] 16:56:00 Test Item Value Reference Range Comments LIPASE (BEAKER) (test xpyt=207) 52 U/L 8-78 Specimen moderately ictericCBC W/PLT COUNT & AUTO [id number] 16: 27:00 Test Item Value Reference Range Comments WHITE BLOOD CELL COUNT (BEAKER) (test cwli=681) 3.7 K/ L 4.0-10.0 RED BLOOD CELL COUNT (BEAKER) (test mtyi=282) 2.16 M/ L 4.20-5.80 HEMOGLOBIN (BEAKER) (test lfpx=934) 7.8 GM/DL 13.0-16.8 HEMATOCRIT (BEAKER) (test guvn=973) 23.1 % 40.0-50.0 MEAN CORPUSCULAR VOLUME (BEAKER) (test fbdh=035) 107.0 fL 82.0-98.0 MEAN CORPUSCULAR HEMOGLOBIN (BEAKER) (test 36.0 pg 27.0-33.0 pdsb=628) MEAN CORPUSCULAR HEMOGLOBIN CONC (BEAKER) (test 33.6 GM/DL 32.0-36.0 uxwi=421) RED CELL DISTRIBUTION WIDTH (BEAKER) (test 13.9 % 10.3-14.2 mqzy=471) PLATELET COUNT (BEAKER) (test zipk=712) 78 K/CU MM 150-430 MEAN PLATELET VOLUME (BEAKER) (test fyuf=595) 6.2 fL 6.5-10.5 NUCLEATED RED BLOOD CELLS (BEAKER) (test 0 /100 WBC 0-0 putr=701) NEUTROPHILS RELATIVE PERCENT (BEAKER) (test 50 % hssk=147) LYMPHOCYTES RELATIVE PERCENT (BEAKER) (test 25 % tdct=640) MONOCYTES RELATIVE PERCENT (BEAKER) (test 19 % qggm=049) EOSINOPHILS RELATIVE PERCENT (BEAKER) (test 6 % khma=732) BASOPHILS RELATIVE PERCENT (BEAKER) (test 1 % ybqf=966) NEUTROPHILS ABSOLUTE COUNT (BEAKER) (test 1.82 K/ L 1.80-8.00 kkbk=502) LYMPHOCYTES ABSOLUTE COUNT (BEAKER) (test 0.91 K/ L 1.48-4.50 epmd=665) MONOCYTES ABSOLUTE COUNT (BEAKER) (test wsjs=761) 0.69 K/ L 0.00-1.30 EOSINOPHILS ABSOLUTE COUNT (BEAKER) (test 0.21 K/ L 0.00-0.50 yfvs=160) BASOPHILS ABSOLUTE COUNT (BEAKER) (test zxyh=173) 0.02 K/ L 0.00-0.20 0.00HEPATIC FUNCTION [id number] 08:34:00 Test Item Value Reference Range Comments TOTAL PROTEIN (BEAKER) (test ilun=168) 5.9 gm/dL 6.0-8.3 ALBUMIN (BEAKER) (test lpyk=6764) 3.2 g/dL 3.5-5.0 BILIRUBIN TOTAL (BEAKER) (test wggb=114) 5.4 mg/dL 0.2-1.2 BILIRUBIN DIRECT (BEAKER) (test ajgc=942) 2.5 mg/dL 0.1-0.5 ALKALINE PHOSPHATASE (BEAKER) (test csmu=264) 60 U/L 40-150 AST (SGOT) (BEAKER) (test zkkk=688) 28 U/L 5-34 ALT (SGPT) (BEAKER) (test mbwh=630) 10 U/L 6-55 Specimen moderately [id number] 08:16:00 Test Item Value Reference Range Comments PHOSPHORUS (BEAKER) (test vhws=162) 3.0 mg/dL 2.3-4.7 [id number] 08:16:00 Test Item Value Reference Range Comments MAGNESIUM (BEAKER) (test arha=885) 1.6 mg/dL 1.6-2.6 BASIC METABOLIC [id number] 08:16:00 Test Item Value Reference Range Comments SODIUM (BEAKER) (test 133 meq/L 136-145 bssv=913) POTASSIUM (BEAKER) (test 3.6 meq/L 3.5-5.1 jafm=736) CHLORIDE (BEAKER) (test 105 meq/L 98-107 vovi=257) CO2 (BEAKER) (test 20 meq/L 22-29 yuwi=093) BLOOD UREA NITROGEN 18 mg/dL 7-21 (BEAKER) (test bkpc=088) CREATININE (BEAKER) (test 1.54 mg/dL 0.57-1.25 owfj=139) GLUCOSE RANDOM (BEAKER) 70 mg/dL 70-105 (test opnx=423) CALCIUM (BEAKER) (test 8.2 mg/dL 8.4-10.2 fxqt=119) EGFR (BEAKER) (test 48 mL/min/1.73 sq m ESTIMATED GFR IS NOT rrue=5310) ACCURATE CREATININE CLEARANCE IN PREDICTING GLOMERULAR FILTRATION RATE. ESTIMATED GFR IS NOT APPLICABLE FOR DIALYSIS PATIENTS. Specimen moderately ictericCBC W/PLT COUNT & AUTO [id number] 08: 06:00 Test Item Value Reference Range Comments WHITE BLOOD CELL COUNT (BEAKER) (test tjok=235) 3.4 K/ L 4.0-10.0 RED BLOOD CELL COUNT (BEAKER) (test xxkg=958) 2.03 M/ L 4.20-5.80 HEMOGLOBIN (BEAKER) (test rzlm=521) 7.3 GM/DL 13.0-16.8 HEMATOCRIT (BEAKER) (test blud=261) 21.6 % 40.0-50.0 MEAN CORPUSCULAR VOLUME (BEAKER) (test fmpv=868) 106.0 fL 82.0-98.0 MEAN CORPUSCULAR HEMOGLOBIN (BEAKER) (test 35.8 pg 27.0-33.0 sbtt=528) MEAN CORPUSCULAR HEMOGLOBIN CONC (BEAKER) (test 33.7 GM/DL 32.0-36.0 mngd=906) RED CELL DISTRIBUTION WIDTH (BEAKER) (test 13.5 % 10.3-14.2 yyjc=100) PLATELET COUNT (BEAKER) (test pvpk=214) 82 K/CU MM 150-430 MEAN PLATELET VOLUME (BEAKER) (test spxo=752) 6.7 fL 6.5-10.5 NUCLEATED RED BLOOD CELLS (BEAKER) (test 0 /100 WBC 0-0 ielh=180) NEUTROPHILS RELATIVE PERCENT (BEAKER) (test 50 % qiwx=584) LYMPHOCYTES RELATIVE PERCENT (BEAKER) (test 25 % sqvi=923) MONOCYTES RELATIVE PERCENT (BEAKER) (test 19 % xpag=378) EOSINOPHILS RELATIVE PERCENT (BEAKER) (test 5 % pocj=454) BASOPHILS RELATIVE PERCENT (BEAKER) (test 1 % odbd=923) NEUTROPHILS ABSOLUTE COUNT (BEAKER) (test 1.69 K/ L 1.80-8.00 dprq=959) LYMPHOCYTES ABSOLUTE COUNT (BEAKER) (test 0.83 K/ L 1.48-4.50 ysmw=506) MONOCYTES ABSOLUTE COUNT (BEAKER) (test pdfk=803) 0.65 K/ L 0.00-1.30 EOSINOPHILS ABSOLUTE COUNT (BEAKER) (test 0.17 K/ L 0.00-0.50 yleu=589) BASOPHILS ABSOLUTE COUNT (BEAKER) (test wiuu=583) 0.04 K/ L 0.00-0.20 0.00PROTHROMBIN [id number] 08:01:00 Test Item Value Reference Range Comments PROTIME (BEAKER) (test ruor=688) 27.6 seconds 11.7-14.7 INR (BEAKER) (test hdul=784) 2.6 <=5.9 RECOMMENDED COUMADIN/WARFARIN INR THERAPY RANGESSTANDARD DOSE: 2.0 - 3.0 Includes: PROPHYLAXIS forvenous thrombosis, systemic embolization; TREATMENT for venous thrombosis and/or pulmonary embolus.HIGH RISK: Target INR is 2.5-3.5 for patients with mechanical heart valves.CALCIUM, [id number] 07:58:00 Test Item Value Reference Range Comments CALCIUM IONIZED (BEAKER) (test yged=851) 1.00 mmol/L 1.12-1.27 PH, BLOOD (BEAKER) (test ymdt=5392) 7.53 URINALYSIS W/ [id number] 18:42:00 Test Item Value Reference Range Comments COLOR (BEAKER) (test udmj=920) Yellow CLARITY (BEAKER) (test kjdo=330) Clear SPECIFIC GRAVITY UA (BEAKER) (test 1.009 1.001-1.035 qwbk=449) PH UA (BEAKER) (test rtub=302) 7.5 5.0-8.0 PROTEIN UA (BEAKER) (test qcjf=541) Negative Negative GLUCOSE UA (BEAKER) (test sqyf=855) Negative Negative KETONES UA (BEAKER) (test fgfb=012) Negative Negative BILIRUBIN UA (BEAKER) (test ykew=161) Negative Negative BLOOD UA (BEAKER) (test iytj=789) Negative Negative NITRITE UA (BEAKER) (test ywtq=884) Negative Negative LEUKOCYTE ESTERASE UA (BEAKER) (test Negative Negative qkbs=018) UROBILINOGEN UA (BEAKER) (test iifs=211) 3.0 mg/dL 0.2-1.0 RBC UA (BEAKER) (test quoi=872) 6 /HPF WBC UA (BEAKER) (test kbfr=987) 1 /HPF SOURCE(BEAKER) (test xevo=3802) Urine, Clean Catch PROTHROMBIN [id number] 15:13:00 Test Item Value Reference Range Comments PROTIME (BEAKER) (test qvvu=792) 31.4 seconds 11.7-14.7 INR (BEAKER) (test iefu=744) 3.0 <=5.9 RECOMMENDED COUMADIN/WARFARIN INR THERAPY RANGESSTANDARD DOSE: 2.0 - 3.0 Includes: PROPHYLAXIS forvenous thrombosis, systemic embolization; TREATMENT for venous thrombosis and/or pulmonary embolus.HIGH RISK: Target INR is 2.5-3.5 for patients with mechanical heart valves.Draw after vitamin K administrationCBC W/PLT COUNT & AUTO [id number] 07:02:00 Test Item Value Reference Range Comments WHITE BLOOD CELL COUNT (BEAKER) (test flfq=945) 3.0 K/ L 4.0-10.0 RED BLOOD CELL COUNT (BEAKER) (test wrtu=918) 2.21 M/ L 4.20-5.80 HEMOGLOBIN (BEAKER) (test yggy=315) 7.5 GM/DL 13.0-16.8 HEMATOCRIT (BEAKER) (test jnwq=111) 23.5 % 40.0-50.0 MEAN CORPUSCULAR VOLUME (BEAKER) (test wqqv=835) 106.0 fL 82.0-98.0 MEAN CORPUSCULAR HEMOGLOBIN (BEAKER) (test 34.0 pg 27.0-33.0 jroa=298) MEAN CORPUSCULAR HEMOGLOBIN CONC (BEAKER) (test 32.0 GM/DL 32.0-36.0 avwj=366) RED CELL DISTRIBUTION WIDTH (BEAKER) (test 13.0 % 10.3-14.2 puqf=478) PLATELET COUNT (BEAKER) (test ngkz=520) 81 K/CU MM 150-430 MEAN PLATELET VOLUME (BEAKER) (test bovq=632) 6.3 fL 6.5-10.5 NUCLEATED RED BLOOD CELLS (BEAKER) (test 0 /100 WBC 0-0 odhc=801) NEUTROPHILS RELATIVE PERCENT (BEAKER) (test 52 % zywl=776) LYMPHOCYTES RELATIVE PERCENT (BEAKER) (test 24 % ogfp=764) MONOCYTES RELATIVE PERCENT (BEAKER) (test 20 % kjxx=145) EOSINOPHILS RELATIVE PERCENT (BEAKER) (test 3 % mtlb=388) BASOPHILS RELATIVE PERCENT (BEAKER) (test 1 % kxpb=330) NEUTROPHILS ABSOLUTE COUNT (BEAKER) (test 1.53 K/ L 1.80-8.00 ghcf=240) LYMPHOCYTES ABSOLUTE COUNT (BEAKER) (test 0.71 K/ L 1.48-4.50 bomk=463) MONOCYTES ABSOLUTE COUNT (BEAKER) (test irnp=150) 0.60 K/ L 0.00-1.30 EOSINOPHILS ABSOLUTE COUNT (BEAKER) (test 0.10 K/ L 0.00-0.50 ccrd=767) BASOPHILS ABSOLUTE COUNT (BEAKER) (test xzsd=050) 0.03 K/ L 0.00-0.20 0.00BASIC METABOLIC [id number] 06:29:00 Test Item Value Reference Range Comments SODIUM (BEAKER) (test 135 meq/L 136-145 ptyj=664) POTASSIUM (BEAKER) (test 4.0 meq/L 3.5-5.1 vklu=274) CHLORIDE (BEAKER) (test 106 meq/L 98-107 hsus=907) CO2 (BEAKER) (test 22 meq/L 22-29 smtb=256) BLOOD UREA NITROGEN 17 mg/dL 7-21 (BEAKER) (test cgzv=402) CREATININE (BEAKER) (test 1.46 mg/dL 0.57-1.25 cbtd=009) GLUCOSE RANDOM (BEAKER) 75 mg/dL 70-105 (test ttng=298) CALCIUM (BEAKER) (test 8.0 mg/dL 8.4-10.2 ygxb=156) EGFR (BEAKER) (test 51 mL/min/1.73 sq m ESTIMATED GFR IS NOT gebo=1166) ACCURATE CREATININE CLEARANCE IN PREDICTING GLOMERULAR FILTRATION RATE. ESTIMATED GFR IS NOT APPLICABLE FOR DIALYSIS PATIENTS. Specimen moderately ictericHEPATIC FUNCTION [id number] 06:29:00 Test Item Value Reference Range Comments TOTAL PROTEIN (BEAKER) (test nyhv=205) 5.9 gm/dL 6.0-8.3 ALBUMIN (BEAKER) (test wytf=9699) 3.0 g/dL 3.5-5.0 BILIRUBIN TOTAL (BEAKER) (test wvee=848) 5.4 mg/dL 0.2-1.2 BILIRUBIN DIRECT (BEAKER) (test hnrx=336) 2.7 mg/dL 0.1-0.5 ALKALINE PHOSPHATASE (BEAKER) (test vhli=652) 65 U/L 40-150 AST (SGOT) (BEAKER) (test nqmr=017) 27 U/L 5-34 ALT (SGPT) (BEAKER) (test hfqh=090) 7 U/L 6-55 Specimen moderately ictericPROTHROMBIN [id number] 06:23:00 Test Item Value Reference Range Comments PROTIME (BEAKER) (test akcp=925) 31.2 seconds 11.7-14.7 INR (BEAKER) (test higs=536) 3.0 <=5.9 RECOMMENDED COUMADIN/WARFARIN INR THERAPY RANGESSTANDARD DOSE: 2.0 - 3.0 Includes: PROPHYLAXIS forvenous thrombosis, systemic embolization; TREATMENT for venous thrombosis and/or pulmonary embolus.HIGH RISK: Target INR is 2.5-3.5 for patients with mechanical heart valves.CBC W/PLT COUNT & AUTO [id number] 06:26:00 Test Item Value Reference Range Comments WHITE BLOOD CELL COUNT (BEAKER) (test fjsx=367) 3.0 K/ L 4.0-10.0 RED BLOOD CELL COUNT (BEAKER) (test vegu=462) 2.16 M/ L 4.20-5.80 HEMOGLOBIN (BEAKER) (test zvcp=036) 7.4 GM/DL 13.0-16.8 HEMATOCRIT (BEAKER) (test qpoq=308) 23.1 % 40.0-50.0 MEAN CORPUSCULAR VOLUME (BEAKER) (test zgpl=407) 107.0 fL 82.0-98.0 MEAN CORPUSCULAR HEMOGLOBIN (BEAKER) (test 34.4 pg 27.0-33.0 fwsl=872) MEAN CORPUSCULAR HEMOGLOBIN CONC (BEAKER) (test 32.1 GM/DL 32.0-36.0 loiv=793) RED CELL DISTRIBUTION WIDTH (BEAKER) (test 13.1 % 10.3-14.2 xlre=286) PLATELET COUNT (BEAKER) (test azop=825) 72 K/CU MM 150-430 MEAN PLATELET VOLUME (BEAKER) (test clkc=614) 6.1 fL 6.5-10.5 NUCLEATED RED BLOOD CELLS (BEAKER) (test 0 /100 WBC 0-0 hqpz=972) NEUTROPHILS RELATIVE PERCENT (BEAKER) (test 58 % ssnx=243) LYMPHOCYTES RELATIVE PERCENT (BEAKER) (test 21 % vpon=205) MONOCYTES RELATIVE PERCENT (BEAKER) (test 15 % gsav=725) EOSINOPHILS RELATIVE PERCENT (BEAKER) (test 4 % hibi=895) BASOPHILS RELATIVE PERCENT (BEAKER) (test 1 % guki=483) NEUTROPHILS ABSOLUTE COUNT (BEAKER) (test 1.73 K/ L 1.80-8.00 lwdg=963) LYMPHOCYTES ABSOLUTE COUNT (BEAKER) (test 0.64 K/ L 1.48-4.50 qeot=934) MONOCYTES ABSOLUTE COUNT (BEAKER) (test vtps=776) 0.45 K/ L 0.00-1.30 EOSINOPHILS ABSOLUTE COUNT (BEAKER) (test 0.13 K/ L 0.00-0.50 pfvj=315) BASOPHILS ABSOLUTE COUNT (BEAKER) (test qbud=144) 0.02 K/ L 0.00-0.20 0.00BASIC METABOLIC [id number] 06:24:00 Test Item Value Reference Range Comments SODIUM (BEAKER) (test 134 meq/L 136-145 jnug=485) POTASSIUM (BEAKER) (test 3.7 meq/L 3.5-5.1 ioue=657) CHLORIDE (BEAKER) (test 105 meq/L 98-107 bymz=254) CO2 (BEAKER) (test 21 meq/L 22-29 luab=645) BLOOD UREA NITROGEN 18 mg/dL 7-21 (BEAKER) (test firz=135) CREATININE (BEAKER) (test 1.53 mg/dL 0.57-1.25 hkcr=135) GLUCOSE RANDOM (BEAKER) 103 mg/dL 70-105 (test dwqz=008) CALCIUM (BEAKER) (test 7.6 mg/dL 8.4-10.2 ksgf=837) EGFR (BEAKER) (test 48 mL/min/1.73 sq m ESTIMATED GFR IS NOT geat=2681) ACCURATE CREATININE CLEARANCE IN PREDICTING GLOMERULAR FILTRATION RATE. ESTIMATED GFR IS NOT APPLICABLE FOR DIALYSIS PATIENTS. Specimen moderately ictericHEPATIC FUNCTION [id number] 06:19:00 Test Item Value Reference Range Comments TOTAL PROTEIN (BEAKER) (test qzfs=368) 5.6 gm/dL 6.0-8.3 ALBUMIN (BEAKER) (test zfhb=7990) 2.4 g/dL 3.5-5.0 BILIRUBIN TOTAL (BEAKER) (test qpoc=956) 4.8 mg/dL 0.2-1.2 BILIRUBIN DIRECT (BEAKER) (test qybp=454) 2.6 mg/dL 0.1-0.5 ALKALINE PHOSPHATASE (BEAKER) (test xewt=407) 70 U/L 40-150 AST (SGOT) (BEAKER) (test cifc=252) 28 U/L 5-34 ALT (SGPT) (BEAKER) (test xnvi=755) 11 U/L 6-55 Specimen moderately ictericPROTHROMBIN [id number] 06:00:00 Test Item Value Reference Range Comments PROTIME (BEAKER) (test zdtc=435) 36.7 seconds 11.7-14.7 INR (BEAKER) (test migz=692) 3.7 <=5.9 RECOMMENDED COUMADIN/WARFARIN INR THERAPY RANGESSTANDARD DOSE: 2.0 - 3.0 Includes: PROPHYLAXIS forvenous thrombosis, systemic embolization; TREATMENT for venous thrombosis and/or pulmonary embolus.HIGH RISK: Target INR is 2.5-3.5 for patients with mechanical heart valves.BODY FLUID CULTURE + GRAM [id number] 00:51:00 Test Item Value Reference Range Comments CULTURE (BEAKER) (test fces=7550) No growth GRAM STAIN RESULT (BEAKER) (test 3+ WBCs qwtt=4768) GRAM STAIN RESULT (BEAKER) (test No organisms seen bnsn=17507) BLOOD [id number] 17:08:00 Test Item Value Reference Range Comments CULTURE (BEAKER) (test ekiy=2382) No growth in 5 days BLOOD [id number] 17:06:00 Test Item Value Reference Range Comments CULTURE (BEAKER) (test qxvj=5869) No growth in 5 days CBC W/PLT COUNT & AUTO [id number] 07:05:00 Test Item Value Reference Range Comments WHITE BLOOD CELL COUNT (BEAKER) (test oyci=350) 3.5 K/ L 4.0-10.0 RED BLOOD CELL COUNT (BEAKER) (test waky=541) 2.16 M/ L 4.20-5.80 HEMOGLOBIN (BEAKER) (test vydo=226) 7.8 GM/DL 13.0-16.8 HEMATOCRIT (BEAKER) (test gcpm=798) 23.9 % 40.0-50.0 MEAN CORPUSCULAR VOLUME (BEAKER) (test avti=250) 111.0 fL 82.0-98.0 MEAN CORPUSCULAR HEMOGLOBIN (BEAKER) (test 36.3 pg 27.0-33.0 eeqy=871) MEAN CORPUSCULAR HEMOGLOBIN CONC (BEAKER) (test 32.8 GM/DL 32.0-36.0 utgl=790) RED CELL DISTRIBUTION WIDTH (BEAKER) (test 13.9 % 10.3-14.2 ttbu=193) PLATELET COUNT (BEAKER) (test dbxp=405) 72 K/CU MM 150-430 MEAN PLATELET VOLUME (BEAKER) (test awty=484) 6.4 fL 6.5-10.5 NUCLEATED RED BLOOD CELLS (BEAKER) (test 0 /100 WBC 0-0 rubk=460) NEUTROPHILS RELATIVE PERCENT (BEAKER) (test 51 % wuwq=032) LYMPHOCYTES RELATIVE PERCENT (BEAKER) (test 25 % kxbn=847) MONOCYTES RELATIVE PERCENT (BEAKER) (test 18 % stfq=184) EOSINOPHILS RELATIVE PERCENT (BEAKER) (test 6 % amih=114) BASOPHILS RELATIVE PERCENT (BEAKER) (test 0 % mtww=109) NEUTROPHILS ABSOLUTE COUNT (BEAKER) (test 1.77 K/ L 1.80-8.00 nwdt=300) LYMPHOCYTES ABSOLUTE COUNT (BEAKER) (test 0.87 K/ L 1.48-4.50 tpdr=798) MONOCYTES ABSOLUTE COUNT (BEAKER) (test xkbx=782) 0.62 K/ L 0.00-1.30 EOSINOPHILS ABSOLUTE COUNT (BEAKER) (test 0.22 K/ L 0.00-0.50 iqkh=159) BASOPHILS ABSOLUTE COUNT (BEAKER) (test hndp=369) 0.01 K/ L 0.00-0.20 0.00BASIC METABOLIC [id number] 06:54:00 Test Item Value Reference Range Comments SODIUM (BEAKER) (test 137 meq/L 136-145 meab=872) POTASSIUM (BEAKER) (test 3.8 meq/L 3.5-5.1 blpo=588) CHLORIDE (BEAKER) (test 109 meq/L 98-107 ruls=587) CO2 (BEAKER) (test 21 meq/L 22-29 xdfn=249) BLOOD UREA NITROGEN 17 mg/dL 7-21 (BEAKER) (test imsg=218) CREATININE (BEAKER) (test 1.60 mg/dL 0.57-1.25 baya=403) GLUCOSE RANDOM (BEAKER) 76 mg/dL 70-105 (test hwdd=160) CALCIUM (BEAKER) (test 7.5 mg/dL 8.4-10.2 gbgp=830) EGFR (BEAKER) (test 46 mL/min/1.73 sq m ESTIMATED GFR IS NOT fnne=9897) ACCURATE CREATININE CLEARANCE IN PREDICTING GLOMERULAR FILTRATION RATE. ESTIMATED GFR IS NOT APPLICABLE FOR DIALYSIS PATIENTS. Specimen moderately ictericHEPATIC FUNCTION [id number] 06:53:00 Test Item Value Reference Range Comments TOTAL PROTEIN (BEAKER) (test xxbv=651) 5.6 gm/dL 6.0-8.3 ALBUMIN (BEAKER) (test vcbm=6277) 2.4 g/dL 3.5-5.0 BILIRUBIN TOTAL (BEAKER) (test zxvh=369) 4.5 mg/dL 0.2-1.2 BILIRUBIN DIRECT (BEAKER) (test wufw=968) 2.7 mg/dL 0.1-0.5 ALKALINE PHOSPHATASE (BEAKER) (test xlgy=661) 74 U/L 40-150 AST (SGOT) (BEAKER) (test gnix=851) 36 U/L 5-34 ALT (SGPT) (BEAKER) (test mtyu=569) 13 U/L 6-55 Specimen moderately ictericB-TYPE NATRIURETIC FACTOR (BNP)[id number] 06:52:00 Test Item Value Reference Range Comments B-TYPE NATRIURETIC PEPTIDE (BEAKER) (test 446 pg/mL 0-100 isdb=141) PROTHROMBIN [id number] 06:36:00 Test Item Value Reference Range Comments PROTIME (BEAKER) (test fpry=021) 28.7 seconds 11.7-14.7 INR (BEAKER) (test glvw=548) 2.7 <=5.9 RECOMMENDED COUMADIN/WARFARIN INR THERAPY RANGESSTANDARD DOSE: 2.0 - 3.0 Includes: PROPHYLAXIS forvenous thrombosis, systemic embolization; TREATMENT for venous thrombosis and/or pulmonary embolus.HIGH RISK: Target INR is 2.5-3.5 for patients with mechanical heart valves.EOSINOPHIL SMEAR, [id number] 21: 44:00 Test Item Value Reference Range Comments EOSINOPHIL SMEAR, URINE (BEAKER) (test No EOS seen No EOS seen zigr=4632) CREATININE, RANDOM [id number] 18:02:00 Test Item Value Reference Range Comments CREATININE URINE (BEAKER) (test mnns=004) 96.3 mg/dL Reference Range: No NormalsSODIUM, RANDOM [id number] 18:02:00 Test Item Value Reference Range Comments SODIUM URINE (BEAKER) (test qfei=669) 58 meq/L Reference Range: No NormalsURINALYSIS W/ [id number] 17:33:00 Test Item Value Reference Range Comments COLOR (BEAKER) (test ouiq=994) Yellow CLARITY (BEAKER) (test mokl=951) Clear SPECIFIC GRAVITY UA (BEAKER) (test qkvw=832) 1.009 1.001-1.035 PH UA (BEAKER) (test evbp=748) 6.0 5.0-8.0 PROTEIN UA (BEAKER) (test kxia=205) Negative Negative GLUCOSE UA (BEAKER) (test gzft=824) Negative Negative KETONES UA (BEAKER) (test detz=801) Negative Negative BILIRUBIN UA (BEAKER) (test hank=161) Negative Negative BLOOD UA (BEAKER) (test gxyd=833) Negative Negative NITRITE UA (BEAKER) (test wjfd=503) Negative Negative LEUKOCYTE ESTERASE UA (BEAKER) (test gtsy=056) Negative Negative UROBILINOGEN UA (BEAKER) (test pjqv=498) 4.0 mg/dL 0.2-1.0 RBC UA (BEAKER) (test ctdy=510) < /HPF WBC UA (BEAKER) (test dlwv=174) 2 /HPF BACTERIA (BEAKER) (test ziup=560) Rare SOURCE(BEAKER) (test qtlh=6698) CBC W/PLT COUNT & AUTO [id number] 06:53:00 Test Item Value Reference Range Comments WHITE BLOOD CELL COUNT (BEAKER) (test gwvy=181) 3.5 K/ L 4.0-10.0 RED BLOOD CELL COUNT (BEAKER) (test xrmm=204) 2.17 M/ L 4.20-5.80 HEMOGLOBIN (BEAKER) (test bvli=734) 7.9 GM/DL 13.0-16.8 HEMATOCRIT (BEAKER) (test vhjh=080) 23.9 % 40.0-50.0 MEAN CORPUSCULAR VOLUME (BEAKER) (test vrmy=105) 110.0 fL 82.0-98.0 MEAN CORPUSCULAR HEMOGLOBIN (BEAKER) (test 36.1 pg 27.0-33.0 bklv=156) MEAN CORPUSCULAR HEMOGLOBIN CONC (BEAKER) (test 32.9 GM/DL 32.0-36.0 elfo=198) RED CELL DISTRIBUTION WIDTH (BEAKER) (test 14.0 % 10.3-14.2 bnwn=654) PLATELET COUNT (BEAKER) (test mblz=889) 77 K/CU MM 150-430 MEAN PLATELET VOLUME (BEAKER) (test goct=486) 6.1 fL 6.5-10.5 NUCLEATED RED BLOOD CELLS (BEAKER) (test 0 /100 WBC 0-0 goqg=351) NEUTROPHILS RELATIVE PERCENT (BEAKER) (test 56 % idty=581) LYMPHOCYTES RELATIVE PERCENT (BEAKER) (test 20 % iowg=258) MONOCYTES RELATIVE PERCENT (BEAKER) (test 18 % jddf=908) EOSINOPHILS RELATIVE PERCENT (BEAKER) (test 6 % vadz=644) BASOPHILS RELATIVE PERCENT (BEAKER) (test 1 % criw=663) NEUTROPHILS ABSOLUTE COUNT (BEAKER) (test 1.95 K/ L 1.80-8.00 qmze=440) LYMPHOCYTES ABSOLUTE COUNT (BEAKER) (test 0.69 K/ L 1.48-4.50 ljwb=428) MONOCYTES ABSOLUTE COUNT (BEAKER) (test edly=991) 0.62 K/ L 0.00-1.30 EOSINOPHILS ABSOLUTE COUNT (BEAKER) (test 0.20 K/ L 0.00-0.50 hgvy=626) BASOPHILS ABSOLUTE COUNT (BEAKER) (test zuqn=276) 0.03 K/ L 0.00-0.20 0.00BASI METABOLIC [id number] 06:45:00 Test Item Value Reference Range Comments SODIUM (BEAKER) (test 134 meq/L 136-145 eiqw=741) POTASSIUM (BEAKER) (test 3.6 meq/L 3.5-5.1 popm=796) CHLORIDE (BEAKER) (test 106 meq/L 98-107 unvr=077) CO2 (BEAKER) (test 21 meq/L 22-29 ypka=391) BLOOD UREA NITROGEN 14 mg/dL 7-21 (BEAKER) (test wqqb=169) CREATININE (BEAKER) (test 1.33 mg/dL 0.57-1.25 aqvq=465) GLUCOSE RANDOM (BEAKER) 71 mg/dL 70-105 (test acyr=136) CALCIUM (BEAKER) (test 7.6 mg/dL 8.4-10.2 tgke=766) EGFR (BEAKER) (test 57 mL/min/1.73 sq m ESTIMATED GFR IS NOT eyzu=9402) ACCURATE CREATININE CLEARANCE IN PREDICTING GLOMERULAR FILTRATION RATE. ESTIMATED GFR IS NOT APPLICABLE FOR DIALYSIS PATIENTS. Specimen moderately ictericHEPATIC FUNCTION [id number] 06:40:00 Test Item Value Reference Range Comments TOTAL PROTEIN (BEAKER) (test ngnt=375) 5.6 gm/dL 6.0-8.3 ALBUMIN (BEAKER) (test abja=4640) 2.1 g/dL 3.5-5.0 BILIRUBIN TOTAL (BEAKER) (test tsxq=892) 4.4 mg/dL 0.2-1.2 BILIRUBIN DIRECT (BEAKER) (test eraj=154) 2.9 mg/dL 0.1-0.5 ALKALINE PHOSPHATASE (BEAKER) (test nhlx=882) 86 U/L 40-150 AST (SGOT) (BEAKER) (test ibec=837) 45 U/L 5-34 ALT (SGPT) (BEAKER) (test ofby=893) 13 U/L 6-55 Specimen moderately ictericPROTHROMBIN [id number] 06:05:00 Test Item Value Reference Range Comments PROTIME (BEAKER) (test xrcv=515) 29.4 seconds 11.7-14.7 INR (BEAKER) (test eqvx=553) 2.8 <=5.9 RECOMMENDED COUMADIN/WARFARIN INR THERAPY RANGESSTANDARD DOSE: 2.0 - 3.0 Includes: PROPHYLAXIS forvenous thrombosis, systemic embolization; TREATMENT for venous thrombosis and/or pulmonary embolus.HIGH RISK: Target INR is 2.5-3.5 for patients with mechanical heart valves.BODY FLUID CELL COUNT WITH [id number] 20:51:00 Test Item Value Reference Range Comments APPEARANCE FLUID (BEAKER) (test euqt=524) Slightly Hazy Clear COLOR FLUID (BEAKER) (test ajgm=921) Yellow Colorless, Straw RBC FLUID (BEAKER) (test tune=864) 545 /cu mm <=1 ADJUSTED WBC FLUID (BEAKER) (test rgan=6053) 104 /cu mm <=5 LINING CELLS (BEAKER) (test vhea=1874) 1 /cu mm <=1 NEUTROPHILS FLUID (BEAKER) (test bzdl=5042) 3 % LYMPHS FLUID (BEAKER) (test zxjk=140) 13 % MONO/MACROPHAGE FLUID (BEAKER) (test 84 % mxsm=324) EOSINOPHILS FLUID (BEAKER) (test nvzv=378) 0 % BASO FLUID (BEAKER) (test uzgm=183) 0 % CONTAINER BODY FLUID (BEAKER) (test EDTA Tube rugw=2806) POCT-GLUCOSE [id number] 18:48:00 Test Item Value Reference Range Comments POC-GLUCOSE METER (BEAKER) 105 mg/dL 70-110 TESTED AT [facility] [address] [facility] (test ckqk=7881) [facility] [address] BASIC METABOLIC [id number] 05:45:00 Test Item Value Reference Range Comments SODIUM (BEAKER) (test 133 meq/L 136-145 kgfv=896) POTASSIUM (BEAKER) (test 4.3 meq/L 3.5-5.1 Specimen moderately jrjc=865) hemolyzed CHLORIDE (BEAKER) (test 107 meq/L 98-107 aonm=626) CO2 (BEAKER) (test 19 meq/L 22-29 ahfn=401) BLOOD UREA NITROGEN 10 mg/dL 7-21 (BEAKER) (test feut=241) CREATININE (BEAKER) (test 0.86 mg/dL 0.57-1.25 Specimen moderately gpoa=196) hemolyzed GLUCOSE RANDOM (BEAKER) 68 mg/dL 70-105 (test yepk=282) CALCIUM (BEAKER) (test 7.5 mg/dL 8.4-10.2 wskd=587) EGFR (BEAKER) (test 94 mL/min/1.73 sq m ESTIMATED GFR IS NOT jvcb=0106) ACCURATE CREATININE CLEARANCE IN PREDICTING GLOMERULAR FILTRATION RATE. ESTIMATED GFR IS NOT APPLICABLE FOR DIALYSIS PATIENTS. Specimen slightly ictericHEPATIC FUNCTION [id number] 05:45:00 Test Item Value Reference Range Comments TOTAL PROTEIN (BEAKER) (test 5.9 gm/dL 6.0-8.3 Specimen moderately hemolyzed qgsy=856) ALBUMIN (BEAKER) (test 1.9 g/dL 3.5-5.0 Specimen moderately hemolyzed only=5500) BILIRUBIN TOTAL (BEAKER) (test 4.4 mg/dL 0.2-1.2 Specimen moderately hemolyzed gwra=460) BILIRUBIN DIRECT (BEAKER) 2.6 mg/dL 0.1-0.5 Specimen moderately hemolyzed (test efzl=558) ALKALINE PHOSPHATASE (BEAKER) 86 U/L 40-150 (test yetm=072) AST (SGOT) (BEAKER) (test 74 U/L 5-34 Specimen moderately hemolyzed xhnk=391) ALT (SGPT) (BEAKER) (test 17 U/L 6-55 Specimen moderately ygrn=223) hemolyzed Specimen slightly ictericCBC W/PLT COUNT & AUTO [id number] 05:21 :00 Test Item Value Reference Range Comments WHITE BLOOD CELL COUNT (BEAKER) (test evnl=477) 3.5 K/ L 4.0-10.0 RED BLOOD CELL COUNT (BEAKER) (test obyl=292) 2.06 M/ L 4.20-5.80 HEMOGLOBIN (BEAKER) (test udzm=536) 7.9 GM/DL 13.0-16.8 HEMATOCRIT (BEAKER) (test jlif=733) 22.8 % 40.0-50.0 MEAN CORPUSCULAR VOLUME (BEAKER) (test cbth=760) 110.0 fL 82.0-98.0 MEAN CORPUSCULAR HEMOGLOBIN (BEAKER) (test 38.2 pg 27.0-33.0 wsih=981) MEAN CORPUSCULAR HEMOGLOBIN CONC (BEAKER) (test 34.6 GM/DL 32.0-36.0 pvfu=764) RED CELL DISTRIBUTION WIDTH (BEAKER) (test 13.5 % 10.3-14.2 tnvv=186) PLATELET COUNT (BEAKER) (test jtfx=721) 61 K/CU MM 150-430 MEAN PLATELET VOLUME (BEAKER) (test mzmk=596) 6.8 fL 6.5-10.5 NUCLEATED RED BLOOD CELLS (BEAKER) (test 0 /100 WBC 0-0 irtz=798) NEUTROPHILS RELATIVE PERCENT (BEAKER) (test 51 % rxjq=192) LYMPHOCYTES RELATIVE PERCENT (BEAKER) (test 24 % bjgn=460) MONOCYTES RELATIVE PERCENT (BEAKER) (test 18 % cqpu=289) EOSINOPHILS RELATIVE PERCENT (BEAKER) (test 7 % topb=005) BASOPHILS RELATIVE PERCENT (BEAKER) (test 1 % bxel=166) NEUTROPHILS ABSOLUTE COUNT (BEAKER) (test 1.76 K/ L 1.80-8.00 rtmc=419) LYMPHOCYTES ABSOLUTE COUNT (BEAKER) (test 0.85 K/ L 1.48-4.50 rcsc=004) MONOCYTES ABSOLUTE COUNT (BEAKER) (test nbux=483) 0.61 K/ L 0.00-1.30 EOSINOPHILS ABSOLUTE COUNT (BEAKER) (test 0.23 K/ L 0.00-0.50 ozow=716) BASOPHILS ABSOLUTE COUNT (BEAKER) (test khae=721) 0.02 K/ L 0.00-0.20 0.00PROTHROMBIN [id number] 05:19:00 Test Item Value Reference Range Comments PROTIME (BEAKER) (test pvmf=331) 28.2 seconds 11.7-14.7 INR (BEAKER) (test ylrc=211) 2.6 <=5.9 RECOMMENDED COUMADIN/WARFARIN INR THERAPY RANGESSTANDARD DOSE: 2.0 - 3.0 Includes: PROPHYLAXIS forvenous thrombosis, systemic embolization; TREATMENT for venous thrombosis and/or pulmonary embolus.HIGH RISK: Target INR is 2.5-3.5 for patients with mechanical heart valves.BODY FLUID CULTURE + GRAM [id number] 14:14:00 Test Item Value Reference Range Comments CULTURE (BEAKER) (test lolu=6538) No growth GRAM STAIN RESULT (BEAKER) (test 2+ WBCs xnnm=7265) GRAM STAIN RESULT (BEAKER) (test No organisms seen aezd=41432) CBC W/PLT COUNT & AUTO [id number] 10:28:00 Test Item Value Reference Range Comments WHITE BLOOD CELL COUNT (BEAKER) (test khdv=950) 3.6 K/ L 4.0-10.0 RED BLOOD CELL COUNT (BEAKER) (test bmpm=845) 2.17 M/ L 4.20-5.80 HEMOGLOBIN (BEAKER) (test ymcq=010) 7.7 GM/DL 13.0-16.8 HEMATOCRIT (BEAKER) (test ahjs=868) 23.8 % 40.0-50.0 MEAN CORPUSCULAR VOLUME (BEAKER) (test ojqd=181) 110.0 fL 82.0-98.0 MEAN CORPUSCULAR HEMOGLOBIN (BEAKER) (test 35.3 pg 27.0-33.0 bugh=466) MEAN CORPUSCULAR HEMOGLOBIN CONC (BEAKER) (test 32.1 GM/DL 32.0-36.0 ibto=064) RED CELL DISTRIBUTION WIDTH (BEAKER) (test 13.7 % 10.3-14.2 gvfk=692) PLATELET COUNT (BEAKER) (test qvnd=595) 62 K/CU MM 150-430 MEAN PLATELET VOLUME (BEAKER) (test wdds=661) 6.5 fL 6.5-10.5 NUCLEATED RED BLOOD CELLS (BEAKER) (test 0 /100 WBC 0-0 qqio=876) NEUTROPHILS RELATIVE PERCENT (BEAKER) (test 58 % lahf=944) LYMPHOCYTES RELATIVE PERCENT (BEAKER) (test 18 % tvlg=732) MONOCYTES RELATIVE PERCENT (BEAKER) (test 17 % zblc=358) EOSINOPHILS RELATIVE PERCENT (BEAKER) (test 8 % embc=790) BASOPHILS RELATIVE PERCENT (BEAKER) (test 0 % rdhj=968) NEUTROPHILS ABSOLUTE COUNT (BEAKER) (test 2.10 K/ L 1.80-8.00 bitx=389) LYMPHOCYTES ABSOLUTE COUNT (BEAKER) (test 0.63 K/ L 1.48-4.50 nrtg=746) MONOCYTES ABSOLUTE COUNT (BEAKER) (test xhxg=180) 0.59 K/ L 0.00-1.30 EOSINOPHILS ABSOLUTE COUNT (BEAKER) (test 0.28 K/ L 0.00-0.50 hnuj=754) BASOPHILS ABSOLUTE COUNT (BEAKER) (test tvli=109) 0.00 K/ L 0.00-0.20 [id number] 10:16:00 Test Item Value Reference Range Comments PROCALCITONIN (BEAKER) (test bjni=7570) < ng/mL <0.05 SEPSIS RISK (ng/mL)Low: 0.05-0.50Intermediate: 0.51-2.00High: & gt;=2.01HEPATIC FUNCTION [id number] 06:26:00 Test Item Value Reference Range Comments TOTAL PROTEIN (BEAKER) (test ryxx=266) 5.6 gm/dL 6.0-8.3 ALBUMIN (BEAKER) (test jccp=3324) 1.9 g/dL 3.5-5.0 BILIRUBIN TOTAL (BEAKER) (test pkth=618) 4.7 mg/dL 0.2-1.2 BILIRUBIN DIRECT (BEAKER) (test vfnq=046) 2.9 mg/dL 0.1-0.5 ALKALINE PHOSPHATASE (BEAKER) (test sfeq=018) 85 U/L 40-150 AST (SGOT) (BEAKER) (test voyl=614) 53 U/L 5-34 ALT (SGPT) (BEAKER) (test jviw=998) 14 U/L 6-55 Specimen moderately ictericBASIC METABOLIC [id number] 06:26:00 Test Item Value Reference Range Comments SODIUM (BEAKER) (test 134 meq/L 136-145 gztu=488) POTASSIUM (BEAKER) (test 3.8 meq/L 3.5-5.1 pqde=010) CHLORIDE (BEAKER) (test 107 meq/L 98-107 ckbm=218) CO2 (BEAKER) (test 19 meq/L 22-29 patm=230) BLOOD UREA NITROGEN 8 mg/dL 7-21 (BEAKER) (test mmyi=436) CREATININE (BEAKER) (test 0.73 mg/dL 0.57-1.25 fsbn=537) GLUCOSE RANDOM (BEAKER) 73 mg/dL 70-105 (test uxbf=961) CALCIUM (BEAKER) (test 7.2 mg/dL 8.4-10.2 yppv=203) EGFR (BEAKER) (test 113 mL/min/1.73 sq m ESTIMATED GFR IS NOT tlrq=6253) ACCURATE CREATININE CLEARANCE IN PREDICTING GLOMERULAR FILTRATION RATE. ESTIMATED GFR IS NOT APPLICABLE FOR DIALYSIS PATIENTS. Specimen moderately ictericPROTHROMBIN [id number] 06:05:00 Test Item Value Reference Range Comments PROTIME (BEAKER) (test gjqz=358) 30.9 seconds 11.7-14.7 INR (BEAKER) (test qgef=905) 3.0 <=5.9 RECOMMENDED COUMADIN/WARFARIN INR THERAPY RANGESSTANDARD DOSE: 2.0 - 3.0 Includes: PROPHYLAXIS forvenous thrombosis, systemic embolization; TREATMENT for venous thrombosis and/or pulmonary embolus.HIGH RISK: Target INR is 2.5-3.5 for patients with mechanical heart valves.[id number] 05:54:00 Test Item Value Reference Range Comments PREALBUMIN (BEAKER) (test svvp=331) < mg/dL 14-45 URINE [id number] 12:11:00 Test Item Value Reference Range Comments CULTURE (BEAKER) (test fywp=6067) No growth VANCOMYCIN LEVEL, [id number] 09:26:00 Test Item Value Reference Range Comments VANCOMYCIN TROUGH (BEAKER) (test lujw=113) 15.3 ug/mL 10.0-20.0 HEPATIC FUNCTION [id number] 06:17:00 Test Item Value Reference Range Comments TOTAL PROTEIN (BEAKER) (test qxmi=402) 5.6 gm/dL 6.0-8.3 ALBUMIN (BEAKER) (test khqn=1810) 2.0 g/dL 3.5-5.0 BILIRUBIN TOTAL (BEAKER) (test sdnd=701) 4.2 mg/dL 0.2-1.2 BILIRUBIN DIRECT (BEAKER) (test sieb=648) 2.7 mg/dL 0.1-0.5 ALKALINE PHOSPHATASE (BEAKER) (test upqe=309) 98 U/L 40-150 AST (SGOT) (BEAKER) (test gynb=311) 45 U/L 5-34 ALT (SGPT) (BEAKER) (test ozwb=642) 12 U/L 6-55 Specimen slightly ictericBASIC METABOLIC [id number] 06:17:00 Test Item Value Reference Range Comments SODIUM (BEAKER) (test 133 meq/L 136-145 xvwi=378) POTASSIUM (BEAKER) (test 3.4 meq/L 3.5-5.1 rwco=140) CHLORIDE (BEAKER) (test 107 meq/L 98-107 cxwj=360) CO2 (BEAKER) (test 22 meq/L 22-29 bmda=109) BLOOD UREA NITROGEN 7 mg/dL 7-21 (BEAKER) (test kcpf=550) CREATININE (BEAKER) (test 0.73 mg/dL 0.57-1.25 aeau=816) GLUCOSE RANDOM (BEAKER) 87 mg/dL 70-105 (test ikrk=391) CALCIUM (BEAKER) (test 7.2 mg/dL 8.4-10.2 cccf=295) EGFR (BEAKER) (test 113 mL/min/1.73 sq m ESTIMATED GFR IS NOT ueiz=9605) ACCURATE CREATININE CLEARANCE IN PREDICTING GLOMERULAR FILTRATION RATE. ESTIMATED GFR IS NOT APPLICABLE FOR DIALYSIS PATIENTS. Specimen slightly ictericPROTHROMBIN [id number] 06:04:00 Test Item Value Reference Range Comments PROTIME (BEAKER) (test lkgo=106) 31.7 seconds 11.7-14.7 INR (BEAKER) (test zqge=724) 3.0 <=5.9 RECOMMENDED COUMADIN/WARFARIN INR THERAPY RANGESSTANDARD DOSE: 2.0 - 3.0 Includes: PROPHYLAXIS forvenous thrombosis, systemic embolization; TREATMENT for venous thrombosis and/or pulmonary embolus.HIGH RISK: Target INR is 2.5-3.5 for patients with mechanical heart valves.VITAMIN B12 AND [id number] 19:36 :00 Test Item Value Reference Range Comments VITAMIN B12 (BEAKER) (test egef=063) 1121 pg/mL 213-816 FOLATE (BEAKER) (test vvyc=503) 18.3 ng/mL >=7.0 Effective 09/13/2014: Folate Reference Range ChangeNew: >=7.0 Previous: & gt;=5.4VITAMIN B12 AND [id number] 14:57:00 Test Item Value Reference Range Comments VITAMIN B12 (BEAKER) (test yqtb=033) 1325 pg/mL 213-816 FOLATE (BEAKER) (test lkpu=568) 8.3 ng/mL >=7.0 Effective 09/13/2014: Folate Reference Range ChangeNew: >=7.0 Previous: & gt;=5.4ANTI-NUCLEAR ANTIBODY (CHERYL)2017-02-03 13:56:00 Test Item Value Reference Range Comments ANTI-NUCLEAR ANTIBODY (CHERYL) (BEAKER) (test Negative Negative bifr=214) HEPATITIS B CORE ANTIBODY, [id number] 12:27:00 Test Item Value Reference Range Comments HEPATITIS B CORE TOTAL ANTIBODY (BEAKER) (test Nonreactive Nonreactive jzda=541) CRYPTOCOCCAL [id number] 11:25:00 Test Item Value Reference Range Comments CRYPTOCOCCAL ANTIGEN, SERUM (BEAKER) (test Negative Negative, Interference yarq=7241) HEPATITIS B SURFACE [id number] 11:15:00 Test Item Value Reference Range Comments HEPATITIS B SURFACE ANTIBODY (BEAKER) (test < mIU/mL <8.0 rvqq=686) HEPATITIS B SURFACE [id number] 09:53:00 Test Item Value Reference Range Comments HEPATITIS B SURFACE ANTIGEN (2) (BEAKER) (test Nonreactive Nonreactive eciz=8379) HIV-1 ANTIGEN WITH HIV-1/2 [id number] 09:53:00 Test Item Value Reference Range Comments HIV-1 ANTIGEN WITH HIV 1\\T\\2 ANTIBODY (2) Nonreactive Nonreactive (BEAKER) (test wdxe=5149) HEPATIC FUNCTION [id number] 07:01:00 Test Item Value Reference Range Comments TOTAL PROTEIN (BEAKER) (test sgcb=202) 5.5 gm/dL 6.0-8.3 ALBUMIN (BEAKER) (test ansy=2285) 2.0 g/dL 3.5-5.0 BILIRUBIN TOTAL (BEAKER) (test sgej=318) 3.8 mg/dL 0.2-1.2 BILIRUBIN DIRECT (BEAKER) (test grwf=863) 2.5 mg/dL 0.1-0.5 ALKALINE PHOSPHATASE (BEAKER) (test uddc=961) 108 U/L 40-150 AST (SGOT) (BEAKER) (test yspc=048) 40 U/L 5-34 ALT (SGPT) (BEAKER) (test ebhd=294) 10 U/L 6-55 Specimen slightly ictericBASIC METABOLIC [id number] 07:01:00 Test Item Value Reference Range Comments SODIUM (BEAKER) (test 133 meq/L 136-145 mjrq=995) POTASSIUM (BEAKER) (test 3.7 meq/L 3.5-5.1 ondo=775) CHLORIDE (BEAKER) (test 108 meq/L 98-107 wsok=063) CO2 (BEAKER) (test 20 meq/L 22-29 uxmh=276) BLOOD UREA NITROGEN 7 mg/dL 7-21 (BEAKER) (test oeny=712) CREATININE (BEAKER) (test 0.76 mg/dL 0.57-1.25 kash=807) GLUCOSE RANDOM (BEAKER) 100 mg/dL 70-105 (test cppp=474) CALCIUM (BEAKER) (test 7.3 mg/dL 8.4-10.2 icyv=901) EGFR (BEAKER) (test 108 mL/min/1.73 sq m ESTIMATED GFR IS NOT mrwy=8058) ACCURATE CREATININE CLEARANCE IN PREDICTING GLOMERULAR FILTRATION RATE. ESTIMATED GFR IS NOT APPLICABLE FOR DIALYSIS PATIENTS. Specimen slightly ictericCBC W/PLT COUNT & AUTO [id number] 06:53 :00 Test Item Value Reference Range Comments WHITE BLOOD CELL COUNT (BEAKER) (test aghs=619) 3.5 K/ L 4.0-10.0 RED BLOOD CELL COUNT (BEAKER) (test qpep=416) 1.83 M/ L 4.20-5.80 HEMOGLOBIN (BEAKER) (test gmic=533) 7.3 GM/DL 13.0-16.8 HEMATOCRIT (BEAKER) (test ngnu=300) 19.9 % 40.0-50.0 MEAN CORPUSCULAR VOLUME (BEAKER) (test yyly=221) 109.0 fL 82.0-98.0 MEAN CORPUSCULAR HEMOGLOBIN (BEAKER) (test 39.9 pg 27.0-33.0 fdix=936) MEAN CORPUSCULAR HEMOGLOBIN CONC (BEAKER) (test 36.6 GM/DL 32.0-36.0 vamz=151) RED CELL DISTRIBUTION WIDTH (BEAKER) (test 14.3 % 10.3-14.2 fssc=741) PLATELET COUNT (BEAKER) (test jlts=537) 35 K/CU MM 150-430 MEAN PLATELET VOLUME (BEAKER) (test gefp=951) 6.6 fL 6.5-10.5 NUCLEATED RED BLOOD CELLS (BEAKER) (test 0 /100 WBC 0-0 uxhr=266) NEUTROPHILS RELATIVE PERCENT (BEAKER) (test 60 % qpjj=314) LYMPHOCYTES RELATIVE PERCENT (BEAKER) (test 18 % okrr=659) MONOCYTES RELATIVE PERCENT (BEAKER) (test 17 % bjxe=749) EOSINOPHILS RELATIVE PERCENT (BEAKER) (test 6 % cvgf=319) BASOPHILS RELATIVE PERCENT (BEAKER) (test 0 % zyqo=912) NEUTROPHILS ABSOLUTE COUNT (BEAKER) (test 2.06 K/ L 1.80-8.00 rcuj=331) LYMPHOCYTES ABSOLUTE COUNT (BEAKER) (test 0.61 K/ L 1.48-4.50 quri=006) MONOCYTES ABSOLUTE COUNT (BEAKER) (test xafr=028) 0.58 K/ L 0.00-1.30 EOSINOPHILS ABSOLUTE COUNT (BEAKER) (test 0.19 K/ L 0.00-0.50 pdtc=983) BASOPHILS ABSOLUTE COUNT (BEAKER) (test yvam=948) 0.01 K/ L 0.00-0.20 0.00PROTHROMBIN [id number] 06:39:00 Test Item Value Reference Range Comments PROTIME (BEAKER) (test mnjb=966) 30.6 seconds 11.7-14.7 INR (BEAKER) (test vdpv=074) 2.9 <=5.9 RECOMMENDED COUMADIN/WARFARIN INR THERAPY RANGESSTANDARD DOSE: 2.0 - 3.0 Includes: PROPHYLAXIS forvenous thrombosis, systemic embolization; TREATMENT for venous thrombosis and/or pulmonary embolus.HIGH RISK: Target INR is 2.5-3.5 for patients with mechanical heart valves.URINALYSIS W/ [id number] 16 :58:00 Test Item Value Reference Range Comments COLOR (BEAKER) (test ypxg=115) Yellow CLARITY (BEAKER) (test nteb=350) Clear SPECIFIC GRAVITY UA (BEAKER) (test 1.025 1.001-1.035 gfhd=541) PH UA (BEAKER) (test gffq=956) 7.0 5.0-8.0 PROTEIN UA (BEAKER) (test vkvg=408) Negative Negative GLUCOSE UA (BEAKER) (test njcq=591) Negative Negative KETONES UA (BEAKER) (test wjmd=031) Negative Negative BILIRUBIN UA (BEAKER) (test oivy=579) Positive Negative BLOOD UA (BEAKER) (test gfgd=144) Negative Negative NITRITE UA (BEAKER) (test lcdv=912) Negative Negative LEUKOCYTE ESTERASE UA (BEAKER) (test Negative Negative ueak=500) UROBILINOGEN UA (BEAKER) (test cfqr=117) 8.0 mg/dL 0.2-1.0 RBC UA (BEAKER) (test oxre=007) 0 /HPF WBC UA (BEAKER) (test cvbz=409) 2 /HPF MUCUS (BEAKER) (test onqb=6489) Rare HYALINE CASTS (BEAKER) (test adij=899) 3 /LPF SOURCE(BEAKER) (test njzy=2947) Urine, Clean Catch [id number] 13:32:00 Test Item Value Reference Range Comments FERRITIN (BEAKER) (test irsu=400) 116 ng/mL 5-275 Effective 09/13/2014: Reference Range ChangeNew: Male 5-275 Previous: Male 22-322 Female 5-275 Female 10-291HEPATITIS A ANTIBODY, [id number] 13:19:00 Test Item Value Reference Range Comments HEPATITIS A IGG ANTIBODY (BEAKER) (test msbt=4676) Reactive Nonreactive ALPHA FETOPROTEIN (AFP), TUMOR [id number] 13:17:00 Test Item Value Reference Range Comments ALPHA-FETOPROTEIN (BEAKER) (test wyqa=4729) 4.5 ng/mL <10.0 Effective 09/13/2014: Reference Range ChangeNew: <10.0 Previous: 0.0- 8.0HEPATITIS C [id number] 13:17:00 Test Item Value Reference Range Comments HEPATITIS C ANTIBODY (BEAKER) (test vpok=168) Nonreactive Nonreactive BODY FLUID CELL COUNT WITH [id number] 13:03:00 Test Item Value Reference Range Comments APPEARANCE FLUID (BEAKER) (test ycts=268) Cloudy Clear COLOR FLUID (BEAKER) (test qchn=835) Yellow Colorless, Straw RBC FLUID (BEAKER) (test hvtv=138) 1519 /cu mm <=1 ADJUSTED WBC FLUID (BEAKER) (test usyx=8340) 108 /cu mm <=5 LINING CELLS (BEAKER) (test okkd=5004) 14 /cu mm <=1 NEUTROPHILS FLUID (BEAKER) (test tdyg=0601) 11 % LYMPHS FLUID (BEAKER) (test txbb=377) 30 % MONO/MACROPHAGE FLUID (BEAKER) (test yxfw=105) 59 % EOSINOPHILS FLUID (BEAKER) (test sjdc=653) 0 % BASO FLUID (BEAKER) (test bvqk=746) 0 % CONTAINER BODY FLUID (BEAKER) (test ijsy=7434) EDTA Tube BASIC METABOLIC [id number] 12:56:00 Test Item Value Reference Range Comments SODIUM (BEAKER) (test 131 meq/L 136-145 dumb=792) POTASSIUM (BEAKER) (test 4.0 meq/L 3.5-5.1 Specimen moderately thgw=756) hemolyzed CHLORIDE (BEAKER) (test 105 meq/L 98-107 znci=126) CO2 (BEAKER) (test 18 meq/L 22-29 nrmv=792) BLOOD UREA NITROGEN 6 mg/dL 7-21 (BEAKER) (test dbis=346) CREATININE (BEAKER) (test 0.72 mg/dL 0.57-1.25 Specimen moderately aees=984) hemolyzed GLUCOSE RANDOM (BEAKER) 103 mg/dL 70-105 (test uumn=820) CALCIUM (BEAKER) (test 7.4 mg/dL 8.4-10.2 sazp=338) EGFR (BEAKER) (test 115 mL/min/1.73 sq m ESTIMATED GFR IS NOT qyjy=5513) ACCURATE CREATININE CLEARANCE IN PREDICTING GLOMERULAR FILTRATION RATE. ESTIMATED GFR IS NOT APPLICABLE FOR DIALYSIS PATIENTS. Specimen moderately ictericIRON, TIBC, % SAT. (WITHOUT FERRITIN)2017-02-02 12:56 :00 Test Item Value Reference Range Comments IRON (BEAKER) (test xbab=933) 55 ug/dL 40-160 TOTAL IRON BINDING CAPACITY (BEAKER) (test 175 ug/dL 250-450 qlrm=324) IRON % SATURATION (2) (BEAKER) (test ytrz=9740) 31 % 20-55 HEPATIC FUNCTION [id number] 12:50:00 Test Item Value Reference Range Comments TOTAL PROTEIN (BEAKER) (test 6.7 gm/dL 6.0-8.3 Specimen moderately hemolyzed pfoh=705) ALBUMIN (BEAKER) (test 2.0 g/dL 3.5-5.0 Specimen moderately hemolyzed uycw=2198) BILIRUBIN TOTAL (BEAKER) (test 5.1 mg/dL 0.2-1.2 Specimen moderately hemolyzed gymc=114) BILIRUBIN DIRECT (BEAKER) 2.8 mg/dL 0.1-0.5 Specimen moderately hemolyzed (test efvs=106) ALKALINE PHOSPHATASE (BEAKER) 99 U/L 40-150 (test anhi=421) AST (SGOT) (BEAKER) (test 62 U/L 5-34 Specimen moderately hemolyzed pwxi=104) ALT (SGPT) (BEAKER) (test 15 U/L 6-55 Specimen moderately vrso=002) hemolyzed Specimen moderately ictericCBC W/PLT COUNT & AUTO [id number] 12: 47:00 Test Item Value Reference Range Comments WHITE BLOOD CELL COUNT (BEAKER) (test cpnq=354) 3.3 K/ L 4.0-10.0 RED BLOOD CELL COUNT (BEAKER) (test qthr=537) 2.08 M/ L 4.20-5.80 HEMOGLOBIN (BEAKER) (test tjet=139) 7.8 GM/DL 13.0-16.8 HEMATOCRIT (BEAKER) (test qxfe=531) 22.9 % 40.0-50.0 MEAN CORPUSCULAR VOLUME (BEAKER) (test ttkt=814) 110.0 fL 82.0-98.0 MEAN CORPUSCULAR HEMOGLOBIN (BEAKER) (test 37.4 pg 27.0-33.0 aakt=047) MEAN CORPUSCULAR HEMOGLOBIN CONC (BEAKER) (test 34.1 GM/DL 32.0-36.0 rnok=033) RED CELL DISTRIBUTION WIDTH (BEAKER) (test 15.0 % 10.3-14.2 auqz=999) PLATELET COUNT (BEAKER) (test bcpx=077) 48 K/CU MM 150-430 MEAN PLATELET VOLUME (BEAKER) (test fihx=791) 6.6 fL 6.5-10.5 NUCLEATED RED BLOOD CELLS (BEAKER) (test 0 /100 WBC 0-0 rjbc=117) NEUTROPHILS RELATIVE PERCENT (BEAKER) (test 62 % hnzy=329) LYMPHOCYTES RELATIVE PERCENT (BEAKER) (test 17 % cknx=410) MONOCYTES RELATIVE PERCENT (BEAKER) (test 15 % ijmm=709) EOSINOPHILS RELATIVE PERCENT (BEAKER) (test 6 % ezec=392) BASOPHILS RELATIVE PERCENT (BEAKER) (test 0 % ghti=339) NEUTROPHILS ABSOLUTE COUNT (BEAKER) (test 2.03 K/ L 1.80-8.00 pimu=917) LYMPHOCYTES ABSOLUTE COUNT (BEAKER) (test 0.57 K/ L 1.48-4.50 nxvg=781) MONOCYTES ABSOLUTE COUNT (BEAKER) (test eeze=416) 0.48 K/ L 0.00-1.30 EOSINOPHILS ABSOLUTE COUNT (BEAKER) (test 0.19 K/ L 0.00-0.50 lfcj=771) BASOPHILS ABSOLUTE COUNT (BEAKER) (test itod=604) 0.01 K/ L 0.00-0.20 0.00PROTHROMBIN [id number] 12:42:00 Test Item Value Reference Range Comments PROTIME (BEAKER) (test uwup=040) 27.0 seconds 11.7-14.7 INR (BEAKER) (test zqzp=808) 2.5 <=5.9 RECOMMENDED COUMADIN/WARFARIN INR THERAPY RANGESSTANDARD DOSE: 2.0 - 3.0 Includes: PROPHYLAXIS forvenous thrombosis, systemic embolization; TREATMENT for venous thrombosis and/or pulmonary embolus.HIGH RISK: Target INR is 2.5-3.5 for patients with mechanical heart valves.ALBUMIN, BODY [id number] 11:46:00 Test Item Value Reference Range Comments ALBUMIN FLUID (BEAKER) (test jhrc=239) 0.5 gm/dL Reference Range: No Normals Assay performance has not been validated for this type of specimen.PROTEIN, BODY [id number] 11:42:00 Test Item Value Reference Range Comments PROTEIN FLUID (BEAKER) (test xnyl=595) 1.3 g/dL Absence of reference range indicates that normals have not been defined.Assay performance has not been validated for this type of specimen.
--- OUTSIDE RECORDS SUMMARY | 2018-09-21 23:59 | XMS REPORT ---
[...] Status Dosage System Date Date Midodrine HCl [facility] 44295667896 10 MG Orally Active 1 tablet Three times a day Pantoprazole [facility] 02697294057 40 MG Orally Active 1 tablet Sodium Once a day Sodium Chloride ND 09827562648 1 GM Orally TID Active 2 tablets Ondansetron HCl ND 21902599677 4 MG Orally Active 1 tab every 8 hours as needed for Nausea and vomiting Hydrocortisone ND 17332079998 20 MG Orally AM Active 1 tablet Once a day with food or milk Ursodiol ND 78568102817 300 MG Orally Active not defined Lactulose ND 50813262209 10 GM/15ML Active 15 ml Orally TID Citalopram [facility] 43725435762 10 MG Active TAKE ONE Hydrobromide DAILY Rifaximin [facility] [address]-08 550 MG Orally Active 1 tablet Twice a day Ondansetron HCl [facility] 26335258018 4 MG Active 1 TAB EVERY 8 HOURS NEEDED FOR NAUSEA AND VOMITING ORALLY 10 DAYS Magnesium Oxide [facility] 14877334910 400 MG Orally Active 1 tablet BID as needed NuFera [facility] 74674882300 - Orally once a Active 1 tab day Hydrocortisone [facility] 46896421192 10 MG Orally PM Active 1 tablet Once a day with food or milk Results No Known Results Summary Purpose eClinicalWorks Submission
--- OUTSIDE RECORDS SUMMARY | 2018-09-21 23:59 | XMS REPORT ---
[...] Status Dosage System Date Date Ondansetron HCl [facility] 69970921261 4 MG Orally Active 1 tab every 8 hours as needed for Nausea and vomiting Hydrocortisone ND 87843756597 20 MG Orally AM Active 1 tablet Once a day with food or milk Magnesium Oxide ND 17466746597 400 MG Orally Active 1 tablet BID as needed Rifaximin [facility] [address]-23 550 MG Orally Active 1 tablet Twice a day Pantoprazole ND 46940161951 40 MG Orally Active 1 tablet Sodium Once a day Sodium Chloride ND 20264514452 1 GM Orally TID Active 2 tablets Lactulose ND 89614985482 10 GM/15ML Active 15 ml Orally TID Ondansetron HCl [facility] 53664633156 4 MG Active 1 TAB EVERY 8 HOURS NEEDED FOR NAUSEA AND VOMITING ORALLY 10 DAYS Citalopram [facility] 47528612837 40 MG Orally Active take one Hydrobromide once a day daily Hydrocortisone [facility] 87508971579 10 MG Orally PM Active 1 tablet Once a day with food or milk NuFera [facility] 61453278980 - Orally once a Active 1 tab day Citalopram [facility] 82376881105 10 MG Active TAKE ONE Hydrobromide DAILY Ursodiol [facility] 56165251862 300 MG Orally Active not defined Midodrine HCl [facility] 40814420386 10 MG Orally Active 1 tablet Three times a day Results No Known Results Summary Purpose eClinicalWorks Submission
[2018-09-22] MEDS ORDERED: FENTANYL CITR 100 MCG/2 ML ONE (00:37)
[2018-09-22] MEDS ORDERED: CEFTRIAXONE/SWI 1gm 1 GM/10 ML SYR ONE (00:37)
[2018-09-22] MEDS ORDERED: NA CHLORIDE 0.9% 1,000 ML ONE (00:37)
[2018-09-22 00:52] LABS: Absolute Lymphocytes (CBC) 0.4 K/uL (0.7-4.9); Absolute Monocytes 0.7 K/uL (0.1-1.3); Absolute Neutrophil 3.2 K/uL (1.8-8.0); Basophils % 0.2 % (0-1.3); Eosinophils % 3.7 % (0-4.4); Hematocrit 25.1 % (39.6-49.0); Lymphocytes % 8.4 % (15.3-44.8); MCH 32.4 pg (27.0-35.0); MCV 92.2 fL (80-100); MPV 7.4 fL (7.6-11.3); Monocytes % 15.6 % (3.3-12.3); RBC Red Blood Cell Count 2.73 M/uL (4.33-5.43)
[2018-09-22 01:19] LABS: Protime INR 1.71
[2018-09-22 01:33] LABS: ALT/SGPT 10 U/L (12-78); AST/SGOT 18 U/L (15-37); Albumin 2.9 g/dL (3.4-5.0); Alkaline Phosphatase 207 U/L (45-117); BUN Blood Urea Nitrogen 27 mg/dL (7-18); Bicarbonate 24 mmol/L (21-32); Bilirubin Total 2.7 mg/dL (0.2-1.0); Creatine Phosphokinase 13 U/L (39-308); Glucose Level 168 mg/dL (74-106); Lipase 341 U/L (73-393); Potassium 4.7 mmol/L (3.5-5.1); Protein, Total 5.6 g/dL (6.4-8.2); Sodium Level 126 mmol/L (136-145); Troponin (Emerg Dept Use Only) < 0.02 ng/mL (0.0-0.045)
[2018-09-22 01:51] LABS: Blood Morphology Comment NOTED (NOT SEEN); Burr Cells 2+; Platelet Estimate DECR
--- NOTE | 2018-09-22 04:32 | ER ---
Nurse's Notes [facility] Name: Abhishek Davis Age: 53 yrs Sex: Male : 1965 Arrival Date: 09/21/2018 Time: 23:52 Bed 20 Private MD: Diagnosis: Generalized abdominal pain;Ascites Presentation: 09/21 23:52 Presenting complaint: EMS states: "pt is reporting pain with an extensive history of jd3 cirrhosis. today he is also reporting nausea and vomiting this morning along with his normal pain he is having with his cirrhosis pain.". Transition of care: patient was not received from another setting of care. Onset of symptoms was September 21, 2018. Risk Assessment: Do you want to hurt yourself or someone else? Patient reports no desire to harm self or others. Initial Sepsis Screen: Does the patient meet any 2 criteria? No. Patient's initial sepsis screen is negative. Does the patient have a suspected source of infection? No. Patient's initial sepsis screen is negative. Care prior to arrival: None. 23:52 Method Of Arrival: EMS: [facility] j 23:52 Acuity: KACEY 3 jd3 Historical: - Allergies: 23:58 No Known Allergies; jd3 - Home Meds: 23:58 Xifaxan 550 mg Oral tab 1 tab 2 times per day [Active]; Centrum Oral daily [Active]; jd3 citalopram 10 mg tab 1 tab once daily [Active]; Lactulose Oral 30 mL 3 times per day [Active]; Lasix 40 mg Oral tab 1 tab once daily [Active]; mag oxide 400 mg daily [Active]; midodrine 5 mg Oral tab twice a day [Active]; ursodiol 300 mg Oral cap 1 cap 2 times per day [Active]; - PMHx: 23:58 Anemia; Cirrhosis; renal insufficiency; Umbilical hernia; jd3 - Immunization history:: Adult Immunizations up to date, Flu vaccine is up to date. - Social history:: Smoking status: Patient/guardian denies using tobacco, but has a distant history of tobacco abuse. - Ebola Screening: : Patient negative for fever greater than or equal to 101.5 degrees Fahrenheit, and additional compatible Ebola Virus Disease symptoms. Screenin/27 00:02 Abuse screen: Denies threats or abuse. Nutritional screening: No deficits noted. jd3 Tuberculosis screening: No symptoms or risk factors identified. Fall Risk Ambulatory Aid- Crutches/Cane/Walker (15 pts). Gait- Weak (10 pts.). Mental Status- Oriented to own ability (0 pts). Total Ty Fall Scale indicates No Risk (0-24 pts). Assessment: 00:00 General: Appears uncomfortable, Behavior is calm, cooperative, appropriate for age. jd3 Pain: Complains of pain in abdomen Quality of pain is described as aching, tender. Neuro: Level of Consciousness is awake, alert, obeys commands, Oriented to person, place, time, situation. Cardiovascular: Denies chest pain, Capillary refill < 3 seconds Patient's skin is warm and dry. Respiratory: Airway is patent Respiratory effort is even, unlabored, Respiratory pattern is regular, symmetrical, Denies shortness of breath. GI: Abdomen is round distended, pmx of hernia noted to abdomen Abd is soft Abd is rigid Reports lower abdominal pain, upper abdominal pain, nausea, vomiting. : No signs and/or symptoms were reported regarding the genitourinary system. EENT: No signs and/or symptoms were reported regarding the EENT system. Derm: Skin is intact, Skin is dry, Skin is jaundiced, Skin temperature is warm. Musculoskeletal: Circulation, motion, and sensation intact. Range of motion: intact in all extremities. 01:32 Reassessment: Patient appears in no apparent distress at this time. Patient and/or jd3 family updated on plan of care and expected duration. Pain level reassessed. Patient is alert, oriented x 3, equal unlabored respirations, skin warm/dry/pink. 02:47 Reassessment: Patient appears in no apparent distress at this time. Patient and/or jd3 family updated on plan of care and expected duration. Pain level reassessed. Patient is alert, oriented x 3, equal unlabored respirations, skin warm/dry/pink. 03:51 Reassessment: Patient appears in no apparent distress at this time. Patient and/or jd3 family updated on plan of care and expected duration. Pain level reassessed. Patient is alert, oriented x 3, equal unlabored respirations, skin warm/dry/pink. awaiting disposition from provider. 04:54 Reassessment: Patient appears in no apparent distress at this time. Patient and/or jd3 family updated on plan of care and expected duration. Pain level reassessed. Patient is alert, oriented x 3, equal unlabored respirations, skin warm/dry/pink. 05:56 Reassessment: Patient appears in no apparent distress at this time. Patient and/or jd3 family updated on plan of care and expected duration. Pain level reassessed. Patient is alert, oriented x 3, equal unlabored respirations, skin warm/dry/pink. Vital Signs: 09/21 23:59 BP 99 / 73; Pulse 92; Resp 18 S; Temp 99.2(O); Pulse Ox 96% on R/A; Weight 67.13 kg jd3 (R); Height 6 ft. 0 in. (182.88 cm) (R); Pain 08/05; 09/22 01:33 BP 104 / 78; Pulse 81; Resp 20 S; Pulse Ox 100% on R/A; jd3 02:48 BP 93 / 72; Pulse 72; Resp 19 S; Pulse Ox 97% on R/A; jd3 03:51 BP 112 / 82; Pulse 75; Resp 18 S; Pulse Ox 97% on R/A; jd3 04:54 BP 92 / 71; Pulse 75; Resp 17 S; Pulse Ox 96% on R/A; jd3 05:56 BP 99 / 71; Pulse 74; Resp 19 S; Pulse Ox 97% on R/A; jd3 09/21 23:59 Body Mass Index 20.07 (67.13 kg, 182.88 cm) jd3 ED Course: 09/21 23:52 Patient arrived in ED. jd3 23:53 Fernando Parson MD is Attending Physician. gs 23:55 Triage completed. jd3 23:59 Arm band placed on. jd3 09/22 00:03 Patient has correct armband on for positive identification. Placed in gown. Bed in low jd3 position. Call light in reach. Side rails up X 1. Adult w/ patient. 00:23 Radiology exam delayed due to With ER staff at this time having an IV inserted and labs kw1 drawn. 00:26 Kaveh Gimenez RN is Primary Nurse. jd3 00:35 Inserted saline lock: 18 gauge in right antecubital area, using aseptic technique. ds4 Blood collected. 00:38 Radiology exam delayed due to Patient being given pain meds at this time. kw1 00:46 Basic Metabolic Panel Sent. ds4 00:46 Blood Culture Adult (2) Sent. ds4 00:46 CBC with Diff Sent. ds4 00:46 CPK Sent. ds4 00:46 Lactate Sent. ds4 00:46 LFT's Sent. ds4 00:46 Lipase Sent. ds4 00:46 Procalcitonin Sent. ds4 00:46 Protime (+inr) Sent. ds4 00:46 Troponin (emerg Dept Use Only) Sent. ds4 00:47 X-ray completed. Portable x-ray completed in exam room. Patient tolerated procedure kw well. 00:49 Chest Single View XRAY In Process Unspecified. EDMS 00:51 Radiology exam delayed due to XRay being done at this time. kw1 00:[address] via wheelchair. kw1 00:57 CT Stone Protocol In Process Unspecified. EDMS 00:58 CT completed. Patient tolerated procedure well. Patient moved back from CT. kw1 04:28 Warm blanket given. jd3 04:30 Bobbi Moe MD is Hospitalizing Provider. gs 05:49 No provider procedures requiring assistance completed. Patient admitted, IV remains in jd3 place. Administered Medications: 00:37 Drug: fentaNYL (PF) 25 mcg Route: IVP; Site: right antecubital; jd3 05:25 Follow up: Response: No adverse reaction jd3 00:38 Drug: NS 0.9% 750 ml Route: IV; Rate: 1 bolus; Site: right antecubital; jd3 05:25 Follow up: Response: No adverse reaction; IV Status: Completed infusion jd3 00:39 Drug: Rocephin - (cefTRIAXone) 1 grams Route: IVPB; Infused Over: 30 mins; Site: right j antecubital; 05:25 Follow up: Response: No adverse reaction; IV Status: Completed infusion jd3 Outcome: 04:31 Decision to Hospitalize by Provider. gs 05:49 Admitted to Med/surg accompanied by tech, via wheelchair, room 421, with chart, Report jd3 called to Ivelisse NÚÑEZ 05:49 Condition: stable 05:49 Instructed on the need for admit, Demonstrated understanding of instructions. 06:01 Patient left the ED. jd3 Signatures: Dispatcher [employer] EDRenetta Zimmerman Donovan ds4 Fernando Parson MD MD gs Davies, Jonathon RN RN jd3 Noemi Hernandes kw1 Corrections: (The following items were deleted from the chart) 04:30 04:30 Warm blanket given. jd3 jd3 05:49 00:00 GI: Abdomen is round pmx of hernia noted to abdomen Reports lower abdominal pain, jd3 upper abdominal pain, nausea, vomiting, jd3
--- NOTE | 2018-09-22 04:33 | EDPHYS ---
Physician Documentation [facility] Name: Abhishek Davis Age: 53 yrs Sex: Male : 1965 Arrival Date: 09/21/2018 Time: 23:52 Bed 20 Private MD: ED Physician Fernando Parson HPI: 09/22 04:32 This 53 yrs old Male presents to ER via EMS with complaints of ab pain. gs 04:32 The patient presents with abdominal pain that is diffuse. Onset: The symptoms/episode gs began/occurred 2 day(s) ago. The symptoms do not radiate. Associated signs and symptoms: Pertinent negatives: nausea, vomiting, and diarrhea. The symptoms are described as crampy. Modifying factors: The symptoms are alleviated by nothing, the symptoms are aggravated by nothing. Severity of pain: At its worst the pain was moderate in the emergency department the pain is unchanged. The patient has experienced similar episodes in the past, multiple times. The patient has been recently seen by a physician: at [facility]. Historical: - Allergies: 09/21 23:58 No Known Allergies; jd3 - Home Meds: 23:58 Xifaxan 550 mg Oral tab 1 tab 2 times per day [Active]; Centrum Oral daily [Active]; jd3 citalopram 10 mg tab 1 tab once daily [Active]; Lactulose Oral 30 mL 3 times per day [Active]; Lasix 40 mg Oral tab 1 tab once daily [Active]; mag oxide 400 mg daily [Active]; midodrine 5 mg Oral tab twice a day [Active]; ursodiol 300 mg Oral cap 1 cap 2 times per day [Active]; - PMHx: 23:58 Anemia; Cirrhosis; renal insufficiency; Umbilical hernia; jd3 - Immunization history:: Adult Immunizations up to date, Flu vaccine is up to date. - Social history:: Smoking status: Patient/guardian denies using tobacco, but has a distant history of tobacco abuse. - Ebola Screening: : Patient negative for fever greater than or equal to 101.5 degrees Fahrenheit, and additional compatible Ebola Virus Disease symptoms. ROS: 09/22 04:32 All other systems are negative. gs Exam: 04:32 Head/Face: Normocephalic, atraumatic. ENT: Nares patent. No nasal discharge, no gs septal abnormalities noted. Tympanic membranes are normal and external auditory canals are clear. Oropharynx with no redness, swelling, or masses, exudates, or evidence of obstruction, uvula midline. Mucous membranes moist. Neck: Trachea midline, no thyromegaly or masses palpated, and no cervical lymphadenopathy. Supple, full range of motion without nuchal rigidity, or vertebral point tenderness. No Meningismus. Chest/axilla: Normal chest wall appearance and motion. Nontender with no deformity. No lesions are appreciated. Cardiovascular: Regular rate and rhythm with a normal S1 and S2. No gallops, murmurs, or rubs. Normal PMI, no JVD. No pulse deficits. Respiratory: Lungs have equal breath sounds bilaterally, clear to auscultation and percussion. No rales, rhonchi or wheezes noted. No increased work of breathing, no retractions or nasal flaring. 04:32 Back: No spinal tenderness. No costovertebral tenderness. Full range of motion. Skin: Warm, dry with normal turgor. Normal color with no rashes, no lesions, and no evidence of cellulitis. 04:32 Constitutional: The patient appears alert, awake. 04:32 Abdomen/GI: Inspection: distension, that is moderate, Palpation: moderate abdominal tenderness, in all quadrants, rebound tenderness, is not appreciated. Vital Signs: 09/21 23:59 BP 99 / 73; Pulse 92; Resp 18 S; Temp 99.2(O); Pulse Ox 96% on R/A; Weight 67.13 kg jd3 (R); Height 6 ft. 0 in. (182.88 cm) (R); Pain 10; 09/22 01:33 BP 104 / 78; Pulse 81; Resp 20 S; Pulse Ox 100% on R/A; jd3 02:48 BP 93 / 72; Pulse 72; Resp 19 S; Pulse Ox 97% on R/A; jd3 03:51 BP 112 / 82; Pulse 75; Resp 18 S; Pulse Ox 97% on R/A; jd3 04:54 BP 92 / 71; Pulse 75; Resp 17 S; Pulse Ox 96% on R/A; jd3 05:56 BP 99 / 71; Pulse 74; Resp 19 S; Pulse Ox 97% on R/A; jd3 09/21 23:59 Body Mass Index 20.07 (67.13 kg, 182.88 cm) jd3 MDM: 00:07 Patient medically screened. 04:32 Differential diagnosis: bowel obstruction, non-specific abd pain, pancreatitis, Peptic gs Ulcer Disease. Data reviewed: vital signs, nurses notes. Counseling: I had a detailed discussion with the patient and/or guardian regarding: the historical points, exam findings, and any diagnostic results supporting the discharge/admit diagnosis. Response to treatment: the patient's symptoms have mildly improved after treatment. 09/22 00:09 Order name: Basic Metabolic Panel; Complete Time: 01:51 09/22 00:09 Order name: Blood Culture Adult (2) 09/22 00:09 Order name: CBC with Diff; Complete Time: 03:01 09/22 00:09 Order name: CPK; Complete Time: :51 09/22 00:09 Order name: Lactate; Complete Time: :51 09/22 00:09 Order name: LFT's; Complete Time: :51 09/22 00:09 Order name: Lipase; Complete Time: :51 09/22 00:09 Order name: Procalcitonin; Complete Time: :51 09/22 00:09 Order name: Protime (+inr); Complete Time: :51 09/22 00:09 Order name: Troponin (emerg Dept Use Only); Complete Time: :51 09/22 00:09 Order name: Urine Microscopic Only 09/22 00:09 Order name: Chest Single View XRAY 09/22 00:09 Order name: CT Stone Protocol 09/22 01:03 Order name: Manual Differential; Complete Time: 03:01 EDMS 09/22 00:09 Order name: Accucheck; Complete Time: 01:51 09/22 00:09 Order name: Cardiac monitoring; Complete Time: 00:39 09/22 00:09 Order name: EKG - Nurse/Tech; Complete Time: 01:51 09/22 00:09 Order name: IV Saline Lock - Large Bore; Complete Time: 00:39 09/22 00:09 Order name: Labs collected and sent; Complete Time: 00:39 09/22 00:09 Order name: O2 Per Protocol; Complete Time: 00:39 09/22 00:09 Order name: O2 Sat Monitoring; Complete Time: 00:39 gs Administered Medications: 00:37 Drug: fentaNYL (PF) 25 mcg Route: IVP; Site: right antecubital; jd3 05:25 Follow up: Response: No adverse reaction jd3 00:38 Drug: NS 0.9% 750 ml Route: IV; Rate: 1 bolus; Site: right antecubital; jd3 05:25 Follow up: Response: No adverse reaction; IV Status: Completed infusion jd3 00:39 Drug: Rocephin - (cefTRIAXone) 1 grams Route: IVPB; Infused Over: 30 mins; Site: right jd3 antecubital; 05:25 Follow up: Response: No adverse reaction; IV Status: Completed infusion jd3 Disposition: 09/22/18 04:31 Hospitalization ordered by Bobbi Moe for Observation. Preliminary diagnosis are Generalized abdominal pain, Ascites. - Bed requested for Telemetry/MedSurg (observation). - Status is Observation. jd3 - Condition is Stable. - Problem is an ongoing problem. - Symptoms are unchanged. UTI on Admission? No Signatures: Dispatcher [employer] EDMS Allan Merlos em1 Fernando Parson MD MD gs Davies, Jonathon RN RN jd3 Corrections: (The following items were deleted from the chart) 05:06 04:31 Hospitalization Ordered by Bobbi Meo MD for Observation. Preliminary em1 diagnosis is Generalized abdominal pain; Ascites. Bed requested for Telemetry/MedSurg (observation). Status is Observation. Condition is Stable. Problem is an ongoing problem. Symptoms are unchanged. UTI on Admission? No. gs 06:01 05:06 09/22/2018 04:31 Hospitalization Ordered by Bobbi Moe MD for Observation. jd3 Preliminary diagnosis is Generalized abdominal pain; Ascites. Bed requested for Telemetry/MedSurg (observation). Status is Observation. Condition is Stable. Problem is an ongoing problem. Symptoms are unchanged. UTI on Admission? No. em1
[2018-09-22] MEDS ORDERED: ONDANSETRON 4 MG/2 ML VIAL IV PRN (04:54)
--- NOTE | 2018-09-22 05:24 | P.HP ---
Certification for Inpatient Patient admitted to: Observation With expected LOS: <2 Midnights Practitioner: I am a practitioner with admitting privileges, knowledge of patient current condition, hospital course, and medical plan of care. Services: Services provided to patient in accordance with Admission requirements found in Title 42 Section 412.3 of the Code of Federal Regulations Patient History Date of Service: 09/22/18 Reason for admission: abdominal pain, ascites History of Present Illness: Mr Davis is a 53 years old male with history of CKD, alcoholic liver cirrhosis, followed up by finished cloth checker at [place], on a transplant list, who has recurrent therapeutic paracentesis, last one done 1 week ago. He came to ED last night complaining of severe abdominal pain associated with nausea. The pain is diffuse , comes and go. He denied any fever or chills. He has had diarrhea, but is chronic due to Lactulose. In ER lab work remarkable for normal WBC count, low Hgb (about his baseline), hyponatremia, abnormal renal function, and elevated lactate. Abd CT report liver cirrhosis with large amount of acsites. No fever at presentation. Allergies No Known Drug Allergies Allergy (Verified 07/06/18 10:35) Unknown Home medications list reviewed: Yes Home Medications: Diphenhydramine [Benadryl*] 25 mg PO Q6H PRN #30 tab 10/09/17 Lactulose 30 ml PO TID #500 ml 11/20/17 Rifaximin [Xifaxan] 550 mg PO BID #60 tablet 11/20/17 Magnesium Oxide [Mag 0X*] 400 mg PO BID #60 tab 12/07/17 Furosemide [Lasix*] 40 mg PO DAILY 02/05/18 Citalopram [Celexa*] 40 mg PO DAILY 02/14/18 Midodrine HCl 5 mg PO TID 02/14/18 Multivitamin/Iron/Folic Acid [Centrum Adults Tablet] 1 tab PO DAILY 02/14/18 Ondansetron HCl [Zofran] 4 mg PO Q8HP PRN 02/14/18 Ursodiol 2 cap PO TID 02/14/18 - Past Medical/Surgical History Diabetic: No -: kidney insufficiency -: liver cirrhosis -: anemia -: jaundice -: alchohol withdrawal -: left wrist sx to remove cyst -: hernia repair -: sx on left lower leg - Family History Mother -: GI disease, Liver disease Notes: mother because of cirrhosis Father -: Diabetes - Social History Smoking Status: Never smoker Alcohol use: No CD- Drugs: No Caffeine use: Yes Place of Residence: Home Review of Systems 10-point ROS is otherwise unremarkable Physical Examination - Physical Exam General: Alert, In no apparent distress HEENT: Atraumatic, PERRLA, Mucous membr. moist/pink, EOMI, Sclerae nonicteric Neck: Supple, 2+ carotid pulse no bruit, No LAD, Without JVD or thyroid abnormality Respiratory: Clear to auscultation bilaterally, Normal air movement Cardiovascular: Regular rate/rhythm, Normal S1 S2 Gastrointestinal: Hyperactive, Tenderness (diffuse), Rebound Musculoskeletal: No tenderness Integumentary: No rashes Neurological: Normal speech, Normal strength at 5/5 x4 extr, Normal tone, Normal affect Lymphatics: No axilla or inguinal lymphadenopathy - Studies Laboratory Data (last 24 hrs) 09/22/18 00:30: PT 20.3 H, INR 1.71 09/22/18 00:30: WBC 4.4, Hgb 8.8 L, Hct 25.1 L, Plt Count 81 L 09/22/18 00:30: Sodium 126 L, Potassium 4.7, BUN 27 H, Creatinine 1.90 H, Glucose 168 H, Total Bilirubin 2.7 H, AST 18, ALT 10 L, Alkaline Phosphatase 207 H, Lipase 341 Assessment and Plan - Problems (Diagnosis) (1) Ascites Onset Date: 11/20/17 Current Visit: No Status: Chronic Qualifiers: Ascites type: due to alcoholic cirrhosis (2) Chronic renal disease Onset Date: 12/11/17 Current Visit: No Status: Chronic Qualifiers: Chronic kidney disease stage: stage 3 (moderate) Qualified Code(s): N18.3 - Chronic kidney disease, stage 3 (moderate) (3) Cirrhosis of liver Onset Date: 03/23/15 Current Visit: No Status: Chronic (4) Hyponatremia Onset Date: 06/13/17 Current Visit: No Status: Chronic - Plan Will admit the patient to the hospital due to abdominal pain in context of large ascites. He has normal WBC count, is afebrile, but lactate is elevated. He already received IV fluids and empiric antibiotic in ER. Will check C.Diff. Order diagnosit and theraputic US guided paracentesis. Will resume antibiotic according ascetic lab results. - Advance Directives Does patient have a Living Will: No Does patient have a Durable POA for Healthcare: No - Code Status/Comfort Care Code Status Assessed: Yes Code Status: Full Code
[2018-09-22 06:30] VITALS: BMI 20.7
[2018-09-22 07:09] LABS: Urine Bacteria 20-50 /HPF (NONE SEEN); Urine Culture Reflex Order REFLEXED; Urine RBC <5 /HPF (NONE SEEN)
[2018-09-22] MEDS: MIDODRINE HCL 5 MG TABLET PO SCH ×3 (08:04→20:26)
--- NOTE | 2018-09-22 08:18 | RAD REPORT ---
EXAM DESCRIPTION: CT - Stone Protocol - 09/22/2018 5:32 am CLINICAL HISTORY: Abdominal pain. Cirrhosis COMPARISON: August 24, 2018 TECHNIQUE: Computed axial tomography of the abdomen pelvis was obtained without oral or IV contrast. Lack of IV and oral contrast limits evaluation of solid organs, bowel, and vessels. Coronal reformat gene images were obtained and reviewed. Preliminary report generated by virtual radiologic in review prior to dictation All CT scans are performed using dose optimization technique as appropriate and may include automated exposure control or mA/KV adjustment according to patient size. FINDINGS: Cirrhosis with large amount of ascites. Cholelithiasis without cholecystitis. Mild splenomegaly. Pancreas and adrenals unremarkable Bilateral nephrocalcinosis without hydronephrosis Umbilical hernia containing ascites The liver, spleen, pancreas and adrenals appear grossly normal There is no evidence of diverticulitis. The appendix appears normal IMPRESSION: Cirrhosis with large amount of ascites
[2018-09-22] MEDS: CITALOPRAM 10 MG TABLET PO SCH ×2 (08:36→15:03)
[2018-09-22] MEDS: MULTIVIT W/ MINERAL TAB PO SCH ×2 (08:37→15:03)
[2018-09-22] MEDS: Rifaximin 550 MG Tab PO SCH ×2 (08:37→20:32)
[2018-09-22] MEDS: FUROSEMIDE 40 MG TABLET PO SCH ×2 (08:37→15:04)
[2018-09-22] MEDS: LACTULOSE 20 GM/30 ML UCUP PO SCH ×3 (08:37→20:26)
--- NOTE | 2018-09-22 08:57 | RAD REPORT ---
EXAM DESCRIPTION: Elizabeth Single View09/22/2018 12:51 am CLINICAL HISTORY: Fever COMPARISON: July 2018 FINDINGS: The lungs appear clear of acute infiltrate. The heart is normal size IMPRESSION: No acute abnormalities displayed
[2018-09-22] MEDS ORDERED: ALBUMIN HUMAN 25% 100 ML IV ONE (11:00)
--- NOTE | 2018-09-22 11:13 | RAD REPORT ---
EXAM DESCRIPTION: US - Paracentesis Proc Guidance - 09/22/2018 9:42 am CLINICAL HISTORY: Recurrent ascites, liver failure COMPARISON: None. TECHNIQUE: The patient presents for ultrasound-guided paracentesis. The procedure, risks and altern atives were discussed with the patient in detail. Oral and written consent were obtained. Time out p rocedure was performed. The patient had no contraindicated allergy or medication history. PT, INR va lues within acceptable limits. Preliminary sonographic evaluation identified right lower quadrant access site. The skin and deeper tissues were anesthetized with 1 percent lidocaine. Under direct sonographic visualization, a parace ntesis catheter was advanced into the peritoneal cavity. Approximately 15 milliliters of ascites milena ined for requested laboratory studies. Large volume drainage was initiated. Approximately 7.5 liters of ascites removed. At the conclusion of the procedure, catheter was withdrawn and a bandage placed at the puncture site. Patient was transferred back to the floor for continued care and pending albumin infusion. The retai raina fluid was delivered to the lab. IMPRESSION: Ultrasound-guided paracentesis as detailed.
[2018-09-22 11:35] LABS: Body Fluid WBC 132 /mm^3
[2018-09-22 12:40] LABS: Appearance SLT. TURBID (CLEAR); Body Fluid Source OTHER; Color of fluid Yellow (COLORLESS)
--- NOTE | 2018-09-22 16:52 | P.PN ---
Subjective Date of Service: 09/22/18 Primary Care Provider: Dr. Carlos Payne Chief Complaint: abdominal pain, ascites Subjective: Other (Patient doing well postop paracentesis) Physical Examination - Vital Signs Temperature: 98.8 F Blood Pressure: 102/69 Pulse: 92 Respirations: 18 Pulse Ox (%): 99 - Physical Exam General: Alert, In no apparent distress, Oriented x3, Cooperative HEENT: Atraumatic Neck: Supple Respiratory: Clear to auscultation bilaterally, Normal air movement Cardiovascular: Normal pulses, Regular rate/rhythm Gastrointestinal: Normal bowel sounds, Soft and benign, Non-distended, Other ( No ascites after paracentesis) Integumentary: No tenderness/swelling, No erythema, No warmth, No cyanosis Neurological: Normal speech, Normal strength at 5/5 x4 extr, Normal tone, Normal affect - Studies Laboratory Data (last 24 hrs) 09/22/18 00:30: PT 20.3 H, INR 1.71 09/22/18 00:30: WBC 4.4, Hgb 8.8 L, Hct 25.1 L, Plt Count 81 L 09/22/18 00:30: Sodium 126 L, Potassium 4.7, BUN 27 H, Creatinine 1.90 H, Glucose 168 H, Total Bilirubin 2.7 H, AST 18, ALT 10 L, Alkaline Phosphatase 207 H, Lipase 341 Medications List Reviewed: Yes Assessment & Plan Discharge Plan: Home Plan to discharge in: 24 Hours Physician Review Additional Text: Impression: Significant ascites secondary to alcoholic cirrhosis currently on liver transplant list, status post paracentesis Anemia of chronic disease Thrombocytopenia likely related to cirrhosis Hyponatremia Chronic renal disease stage III Depression Hypotension on midodrine Plan: Significant ascites secondary to alcoholic cirrhosis currently on liver transplant list, status post paracentesis: Patient status post paracentesis. Ascites improved. Patient received IV albumin. Will monitor closely Overnite. Lab obtained. Will continue with his home medication including Xifaxan and lactulose. Anticipate discharge tomorrow after physical therapy assess his ambulation. Patient will likely to continue with home health and physical therapy at discharge. Patient will need follow up with GI to monitor closely. Patient may require future therapeutic paracentesis in the future. This can likely be done as an outpatient. Anemia of chronic disease: Overall stable. Will monitor closely. Thrombocytopenia likely related to cirrhosis: Overall stable. Will monitor closely. Hyponatremia: Will continue to monitor closely. Will recheck lab in the morning. Chronic renal disease stage III: Likely related to his liver cirrhosis. Will monitor closely. Depression: Will continue with medication. Hypotension on midodrine: Will continue the medication and monitor closely. Time Spent Managing Pts Care (In Minutes): 55
[2018-09-22] MEDS ORDERED: hydrOXYzine HCl 25 MG TAB PO SCH (21:00)
[2018-09-22] MEDS: TRAMADOL HCL 50 MG TAB PO PRN (21:52)
[2018-09-23] MEDS: TRAMADOL HCL 50 MG TAB PO PRN ×2 (03:46→10:49)
[2018-09-23 04:45] LABS: Absolute Lymphocytes (CBC) 0.5 K/uL (0.7-4.9); Absolute Monocytes 0.7 K/uL (0.1-1.3); Absolute Neutrophil 3.3 K/uL (1.8-8.0); Basophils % 0.2 % (0-1.3); Eosinophils % 3.3 % (0-4.4); Hematocrit 22.6 % (39.6-49.0); Lymphocytes % 10.7 % (15.3-44.8); MCH 32.6 pg (27.0-35.0); MCV 92.3 fL (80-100); MPV 6.9 fL (7.6-11.3); Monocytes % 15.6 % (3.3-12.3); RBC Red Blood Cell Count 2.45 M/uL (4.33-5.43)
[2018-09-23 05:01] LABS: Magnesium 2.2 mg/dL (1.8-2.4); Potassium 5.2 mmol/L (3.5-5.1)
--- NOTE | 2018-09-23 07:14 | EKG ---
Test Date: 2018-09-22 Test Time: 01:30:00 Printing Pressman: JOSE MEASUREMENT RESULTS: Intervals: Rate: 73 MN: 190 QRSD: 96 QT: 422 QTc: 464 [place]: P: 43 MN: 190 QRS: -8 T: 21 INTERPRETIVE STATEMENTS: Normal sinus rhythm Abnormal ECG Compared to ECG 08/24/2018 22:53:26 Sinus tachycardia no longer present Left ventricular hypertrophy no longer present Electronically Signed On 09-23-18 07:14:16 [employer]OTE [employer]OL M[employer] INST[employer]ER by Ghanshyam Young
[2018-09-23] MEDS: LACTULOSE 20 GM/30 ML UCUP PO SCH ×2 (08:50→14:29)
[2018-09-23] MEDS: CITALOPRAM 10 MG TABLET PO SCH (08:50)
[2018-09-23] MEDS: MULTIVIT W/ MINERAL TAB PO SCH (08:50)
[2018-09-23] MEDS: MIDODRINE HCL 5 MG TABLET PO SCH ×2 (08:51→14:29)
[2018-09-23] MEDS: FUROSEMIDE 40 MG TABLET PO SCH ×2 (08:51→08:55)
[2018-09-23] MEDS: Rifaximin 550 MG Tab PO SCH (08:52)
[2018-09-23] MEDS ORDERED: FUROSEMIDE 40 MG TABLET PO SCH (09:00)
[2018-09-23] MEDS ORDERED: DIPHENHYDRAMINE 25 MG TAB/CAP PO PRN (09:01)
[2018-09-23 10:33] VITALS: O2SAT 100
[2018-09-23] MEDS ORDERED: TRAMADOL HCL 50 MG TAB PO ONE (12:32)
--- NOTE | 2018-09-23 13:23 | P.DS ---
Admission Date: 09/22/18 Discharge Date: 09/23/18 Primary Care Provider: Dr. Carlos Payne Disposition: IN HOME/HOME HEALTH CARE Reason for Admission: abdominal pain, ascites Procedures: CT scan: COMPARISON: August 24, 2018 TECHNIQUE: Computed axial tomography of the abdomen pelvis was obtained without oral or IV contrast. Lack of IV and oral contrast limits evaluation of solid organs, bowel, and vessels. Coronal reformatted images were obtained and reviewed. Preliminary report generated by virtual radiologic in review prior to dictation All CT scans are performed using dose optimization technique as appropriate and may include automated exposure control or mA/KV adjustment according to patient size. FINDINGS: Cirrhosis with large amount of ascites. Cholelithiasis without cholecystitis. Mild splenomegaly. Pancreas and adrenals unremarkable Bilateral nephrocalcinosis without hydronephrosis Umbilical hernia containing ascites The liver, spleen, pancreas and adrenals appear grossly normal There is no evidence of diverticulitis. The appendix appears normal IMPRESSION: Cirrhosis with large amount of ascites US guided Abdominal paracentesis: COMPARISON: None. TECHNIQUE: The patient presents for ultrasound-guided paracentesis. The procedure, risks and alternatives were discussed with the patient in detail. Oral and written consent were obtained. Time out procedure was performed. The patient had no contraindicated allergy or medication history. PT, INR values within acceptable limits. Preliminary sonographic evaluation identified right lower quadrant access site. The skin and deeper tissues were anesthetized with 1 percent lidocaine. Under direct sonographic visualization, a paracentesis catheter was advanced into the peritoneal cavity. Approximately 15 milliliters of ascites retained for requested laboratory studies. Large volume drainage was initiated. Approximately 7.5 liters of ascites removed. At the conclusion of the procedure, catheter was withdrawn and a bandage placed at the puncture site. Patient was transferred back to the floor for continued care and pending albumin infusion. The retained fluid was delivered to the lab. IMPRESSION: Ultrasound-guided paracentesis as detailed. Impression: Significant ascites secondary to chronic alcoholic cirrhosis currently on liver transplant list, status post ultrasound-guided paracentesis with removal of 7.5 L Anemia of chronic disease, stated Thrombocytopenia likely related to cirrhosis Hyponatremia, chronic Chronic renal disease stage IIIa Depression Hypotension on midodrine GERD Compression fractures to the L-spine with chronic back pain Brief History of Present Illness: 53-year-old male presented to emergency room with increased ascites to the abdomen. Patient with chronic alcoholic cirrhosis needing therapeutic paracentesis. Patient currently on liver transplant. Patient was evaluated the emergency room. Patient admitted for further treatment. Hospital Course: Patient presented with significant ascites requiring ultrasound-guided paracentesis. Patient with history of chronic alcoholic cirrhosis currently on liver transplant. Patient has required repeat paracentesis in the past due to significant ascites. CT scan revealed significant ascites. Patient had ultrasound-guided paracentesis. 7.5 L of fluid removed. Patient given IV albumin afterwards. Patient tolerated procedure well. No complications noted. Cytology and cultures were negative. Patient will be discharged home. 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 Continue with 1500 cc per day fluid restriction. Arrangements for repeat therapeutic paracentesis is to be set up as an outpatient by his PCP. Patient will continue with home health and physical therapy at discharge. Patient will continue with his medication Xifaxan 550 mg 1 pill twice daily, lactulose 3 times a day, multi vitamin daily, ursodial 300 mg 2 pills 3 times a day and Benadryl 25 mg every 6 hr as needed for itching. Compliance with medication and follow up will need to be monitored closely. Patient has anemia of chronic disease with thrombocytopenia likely related to his cirrhosis. This has remained stable during the course of his stay. No rectal bleeding noted. Recommendation to recheck lab-CBC in 1 week to monitor his progress. Recommendation on no further use of nonsteroidal anti- inflammatories. Patient has chronic renal disease stage III a. Patient has been taking off his diuretic therapy due to his renal disease. He will continue with a 1500 cc per day fluid restriction. Recommendation for the patient to follow up with nephrology in 1-2 weeks to monitor his progress. Consideration of restarting diuretic therapy-Lasix 40 mg daily may be required. This can be further addressed by a nephrology. Patient with chronic hyponatremia. This remained stable. This can be followed up as an outpatient by nephrology. Recommendation to recheck BMP in 1 week to monitor his progress. Patient has depression. Patient will continue with his medication-Celexa 40 mg daily. Patient has hypotension on midodrine. He will continue with his medication- midodrine 5 mg 1 pill 3 times a day. He is to monitor for orthostatics changes. Further adjustment can be done by his PCP. Patient has multiple compression fractures that are chronic to the lumbar region. Patient also has chronic back pain. This has been addressed this in the past. He is considering vertebroplasty. This can be further evaluated and address as an outpatient with the help of his PCP. Patient will be provided a limited supply of tramadol 50 mg 1 pill 3 times a day as needed for pain and lidocaine patch to be applied to the area. Recommendation is for the patient follow up with his PCP to continue pain medication. Patient may require pain management to further evaluate and treat. Vital Signs/Physical Exam: Temp Pulse Resp BP Pulse Ox 98.6 F 80 18 100/65 99 09/23/18 12:00 09/23/18 12:00 09/23/18 12:00 09/23/18 12:00 09/23/18 12:00 General: Alert, In no apparent distress, Oriented x3, Cooperative HEENT: Atraumatic, Other (Jaundice noted) Neck: Supple Respiratory: Clear to auscultation bilaterally, Normal air movement Cardiovascular: Normal pulses, Regular rate/rhythm Gastrointestinal: Normal bowel sounds, Soft and benign, Non-distended, Other ( No significant ascites noted.) Integumentary: No erythema, No warmth, No cyanosis, Tenderness/swelling (Pain to the back with palpation) Neurological: Normal speech, Normal strength at 5/5 x4 extr, Normal tone, Normal affect Laboratory Data at Discharge: WBC 4.7 K/uL (4.3-10.9) 09/23/18 03:26 Hgb 8.0 g/dL (13.6-17.9) L 09/23/18 03:26 Hct 22.6 % (39.6-49.0) L 09/23/18 03:26 Plt Count 68 K/uL (152-406) L 09/23/18 03:26 PT 20.3 SECONDS (9.5-12.5) H 09/22/18 00:30 INR 1.71 09/22/18 00:30 Sodium 126 mmol/L (136-145) L 09/23/18 03:26 Potassium 4.2 mmol/L (3.5-5.1) 09/23/18 08:15 BUN 26 mg/dL (7-18) H 09/23/18 03:26 Creatinine 1.70 mg/dL (0.55-1.3) H 09/23/18 03:26 Glucose 90 mg/dL (74-106) 09/23/18 03:26 Magnesium 2.2 mg/dL (1.8-2.4) 09/23/18 03:26 Total Bilirubin 2.7 mg/dL (0.2-1.0) H 09/22/18 00:30 AST 18 U/L (15-37) 09/22/18 00:30 ALT 10 U/L (12-78) L 09/22/18 00:30 Alkaline Phosphatase 207 U/L (45-117) H 09/22/18 00:30 Lipase 341 U/L (73-393) 09/22/18 00:30 Home Medications: RX: Diphenhydramine [Benadryl*] 25 mg PO Q6H PRN #30 tab 10/09/17 RX: Lactulose 30 ml PO TID #500 ml 11/20/17 RX: Rifaximin [Xifaxan] 550 mg PO BID #60 tablet 11/20/17 RX: Citalopram [Celexa*] 40 mg PO DAILY 02/14/18 RX: Midodrine HCl 5 mg PO TID 02/14/18 RX: Multivitamin/Iron/Folic Acid [Centrum Adults Tablet] 1 tab PO DAILY RX: Ondansetron HCl [Zofran] 4 mg PO Q8HP PRN 02/14/18 RX: Ursodiol 2 cap PO TID 02/14/18 Pantoprazole [Protonix Tab] 40 mg PO DAILY #30 tab 09/23/18 RX: Lidocaine 5% Patch [Lidoderm 5% Patch*] 1 patch TOP DAILY #30 patch RX: traMADol HCL [Ultram*] 50 mg PO Q6H PRN #30 tab 09/23/18 New Medications: Pantoprazole [Protonix Tab] 40 mg PO DAILY #30 tab RX: Lidocaine 5% Patch [Lidoderm 5% Patch*] 1 patch TOP DAILY #30 patch RX: traMADol HCL [Ultram*] 50 mg PO Q6H PRN #30 tab PRN Reason: Pain Patient Discharge Instructions: 1. Patient will need a follow up with his PCP within 1 week to follow up this hospitalization. 2. Patient presented with significant ascites requiring ultrasound-guided paracentesis. Patient with history of chronic alcoholic cirrhosis currently on liver transplant. Patient has required repeat paracentesis in the past due to significant ascites. CT scan revealed significant ascites. Patient had ultrasound-guided paracentesis. 7.5 L of fluid removed. Patient given IV albumin afterwards. Patient tolerated procedure well. No complications noted. Cytology and cultures were negative. Patient will be discharged home. Recommendation for the patient to follow up with his marking devices assembler in the next 1-2 weeks to follow up this hospitalization and continue his care. Continue with 1500 cc per day fluid restriction. Arrangements for repeat therapeutic paracentesis is to be set up as an outpatient by his PCP. Patient will continue with home health and physical therapy at discharge. Patient will continue with his medication Xifaxan 550 mg 1 pill twice daily, lactulose 3 times a day, multi vitamin daily , ursodial 300 mg 2 pills 3 times a day and Benadryl 25 mg every 6 hr as needed for itching. Compliance with medication and follow up will need to be monitored closely. 3. Patient has anemia of chronic disease with thrombocytopenia likely related to his cirrhosis. This has remained stable during the course of his stay. No rectal bleeding noted. Recommendation to recheck lab-CBC in 1 week to monitor his progress. Recommendation on no further use of nonsteroidal anti-inflammatories. 4. Patient has chronic renal disease stage III a. Patient has been taking off his diuretic therapy due to his renal disease. He will continue with a 1500 cc per day fluid restriction. Recommendation for the patient to follow up with nephrology in 1-2 weeks to monitor his progress. Consideration of restarting diuretic therapy-Lasix 40 mg daily may be required. This can be further addressed by a nephrology. 5. Patient with chronic hyponatremia. This remained stable. This can be followed up as an outpatient by nephrology. Recommendation to recheck BMP in 1 week to monitor his progress. 6. Patient has depression. Patient will continue with his medication-Celexa 40 mg daily. 7. Patient has hypotension on midodrine. He will continue with his medication-midodrine 5 mg 1 pill 3 times a day. He is to monitor for orthostatics changes. Further adjustment can be done by his PCP. 8. Patient has multiple compression fractures that are chronic to the lumbar region. This has been addressed this in the past. He is considering vertebroplasty. This can be further evaluated and address as an outpatient with the help of his PCP. Patient will be provided a limited supply of tramadol 50 mg 1 pill 3 times a day as needed for pain and lidocaine patch to be applied to the area. Recommendation is for the patient follow up with his PCP to continue pain medication. Patient may require pain management to further evaluate and treat. Diet: AHA Activity: Fall precautions Time spent managing pt's care (in minutes): 55
[2018-09-23] MEDS ORDERED: URSODIOL 300 MG CAP PO SCH (14:00)
[2018-09-23 17:07] VITALS: BP 105/69; TEMP 98.5
[2018-09-24] MEDS ORDERED: LIDOCAINE 5% PATCH TOP SCH (09:00)
== END 2018-09-23 18:04 | disposition home health service (06) ==
LOC: ER 23:45 → ERHOLD 09-22 04:34 → 4TH 09-22 05:53
PROVIDERS: ADMIT Internal Medicine; ATTEND Internal Medicine
PROC: 0W9G3ZX Drainage of Peritoneal Cavity, Percutaneous Approach, Diagnostic (ICD-10-PCS; principal; 2018-09-22)
PROC: BW40ZZZ Ultrasonography of Abdomen (ICD-10-PCS; 2018-09-22)
DX: K70.31 Alcoholic cirrhosis of liver with ascites (principal); D69.6 Thrombocytopenia, unspecified; E87.1 Hypo-osmolality and hyponatremia; N18.3 Chronic kidney disease, stage 3 (moderate); D63.1 Anemia in chronic kidney disease; F32.9 Major depressive disorder, single episode, unspecified; I95.9 Hypotension, unspecified; S32.009A Unspecified fracture of unspecified lumbar vertebra, initial encounter for closed fracture
CPT/HCPCS: 36415; 49083; 71045; 74176; 76377; 80048; 80076; 81015; 82140; 82550; 83605; 83690; 83735; 84132; 84145; 84484; 85025; 85610; 87040; 87070; 87086; 87088; 87493; 88108; 88305; 89050; 93005; 96365; 96366; 96375; 99285; G0378; J0696; J3010; J7030; P9047

== ENCOUNTER 2018-10-02 15:14 | Observation (INO) | payer MEDICAID ==
--- OUTSIDE RECORDS SUMMARY | 2018-10-02 15:31 | XMS REPORT ---
:1965 [facility] Address [address] [place], [place] [address]mariela Lantigua [address] [place] [id number] Care Team Providers Name Role Phone INGRID [...] Value Reference Range Comments CULTURE (BEAKER) (test cgdi=0494) No growth GRAM STAIN RESULT (BEAKER) (test kdcu=2975) No WBCs GRAM STAIN RESULT (BEAKER) (test eijt=46710) No organisms seen POCT-GLUCOSE [id number] 07:52:00 Test Item Value Reference Range Comments POC-GLUCOSE METER (BEAKER) 115 mg/dL 70-110 TESTED AT [facility] [address] [place] [address] (test dxhx=9328) [facility] [address] [id number] 05:18:00 Test Item Value Reference Range Comments MAGNESIUM (BEAKER) (test ntvw=230) 1.9 mg/dL 1.6-2.6 COMPREHENSIVE METABOLIC [id number] 05:18:00 Test Item Value Reference Range Comments TOTAL PROTEIN (BEAKER) 5.2 gm/dL 6.0-8.3 (test lfyx=918) ALBUMIN (BEAKER) (test 3.4 g/dL 3.5-5.0 altd=3736) ALKALINE PHOSPHATASE 113 U/L 40-150 (BEAKER) (test bnds=788) BILIRUBIN TOTAL (BEAKER) 2.9 mg/dL 0.2-1.2 (test colz=366) SODIUM (BEAKER) (test 131 meq/L 136-145 igte=663) POTASSIUM (BEAKER) (test 4.0 meq/L 3.5-5.1 hafk=533) CHLORIDE (BEAKER) (test 101 meq/L 98-107 kwdr=304) CO2 (BEAKER) (test 21 meq/L 22-29 nggh=043) BLOOD UREA NITROGEN 28 mg/dL 7-21 (BEAKER) (test xqmu=384) CREATININE (BEAKER) (test 1.65 mg/dL 0.57-1.25 pdnt=134) GLUCOSE RANDOM (BEAKER) 122 mg/dL 70-105 (test ilig=515) CALCIUM (BEAKER) (test 9.3 mg/dL 8.4-10.2 pbrl=572) AST (SGOT) (BEAKER) (test 15 U/L 5-34 qwur=410) ALT (SGPT) (BEAKER) (test 8 U/L 6-55 jauz=991) EGFR (BEAKER) (test 44 mL/min/1.73 sq m ESTIMATED GFR IS NOT oskf=3694) ACCURATE CREATININE CLEARANCE IN PREDICTING GLOMERULAR FILTRATION RATE. ESTIMATED GFR IS NOT APPLICABLE FOR DIALYSIS PATIENTS. Specimen slightly ictericPROTHROMBIN [id number] 04:48:00 Test Item Value Reference Range Comments PROTIME (BEAKER) (test ofnc=362) 20.9 seconds 11.7-14.7 INR (BEAKER) (test nwsj=237) 1.8 <=5.9 RECOMMENDED COUMADIN/WARFARIN INR THERAPY RANGESSTANDARD DOSE: 2.0 - 3.0 Includes: PROPHYLAXIS forvenous thrombosis, systemic embolization; TREATMENT for venous thrombosis and/or pulmonary embolus.HIGH RISK: Target INR is 2.5-3.5 for patients with mechanical heart valves.CBC W/PLT COUNT & AUTO [id number] 04:45:00 Test Item Value Reference Range Comments WHITE BLOOD CELL COUNT (BEAKER) (test hukf=789) 3.4 K/ L 3.5-10.5 RED BLOOD CELL COUNT (BEAKER) (test cdxr=781) 2.55 M/ L 4.63-6.08 HEMOGLOBIN (BEAKER) (test lark=196) 8.1 GM/DL 13.7-17.5 HEMATOCRIT (BEAKER) (test yvkm=529) 24.0 % 40.1-51.0 MEAN CORPUSCULAR VOLUME (BEAKER) (test nbxk=117) 94.1 fL 79.0-92.2 MEAN CORPUSCULAR HEMOGLOBIN (BEAKER) (test 31.8 pg 25.7-32.2 sugz=175) MEAN CORPUSCULAR HEMOGLOBIN CONC (BEAKER) (test 33.8 GM/DL 32.3-36.5 iqwc=082) RED CELL DISTRIBUTION WIDTH (BEAKER) (test 15.8 % 11.6-14.4 lvqi=241) PLATELET COUNT (BEAKER) (test dphs=995) 41 K/CU MM 150-450 MEAN PLATELET VOLUME (BEAKER) (test zpnc=189) 10.0 fL 9.4-12.4 NUCLEATED RED BLOOD CELLS (BEAKER) (test 0 /100 WBC 0-0 upka=765) NEUTROPHILS RELATIVE PERCENT (BEAKER) (test 63 % pxzs=897) LYMPHOCYTES RELATIVE PERCENT (BEAKER) (test 19 % tmgu=094) MONOCYTES RELATIVE PERCENT (BEAKER) (test 16 % qpuj=287) EOSINOPHILS RELATIVE PERCENT (BEAKER) (test 2 % nile=127) BASOPHILS RELATIVE PERCENT (BEAKER) (test 0 % pbtp=929) NEUTROPHILS ABSOLUTE COUNT (BEAKER) (test 2.13 K/ L 1.78-5.38 qxoi=339) LYMPHOCYTES ABSOLUTE COUNT (BEAKER) (test 0.62 K/ L 1.32-3.57 pssg=966) MONOCYTES ABSOLUTE COUNT (BEAKER) (test qhdl=602) 0.52 K/ L 0.30-0.82 EOSINOPHILS ABSOLUTE COUNT (BEAKER) (test 0.08 K/ L 0.04-0.54 zzpy=722) BASOPHILS ABSOLUTE COUNT (BEAKER) (test jwgr=659) 0.00 K/ L 0.01-0.08 IMMATURE GRANULOCYTES-RELATIVE PERCENT (BEAKER) 0 % 0-1 (test rrsz=2714) POCT-GLUCOSE [id number] 21:35:00 Test Item Value Reference Range Comments POC-GLUCOSE METER (BEAKER) 215 mg/dL 70-110 TESTED AT [address] (test dtou=2581) [facility] [address] POCT-GLUCOSE [id number] 18:17:00 Test Item Value Reference Range Comments POC-GLUCOSE METER (BEAKER) 149 mg/dL 70-110 TESTED AT [place] [id number] [place] (test wixj=7736) [facility] [address] COMPREHENSIVE METABOLIC [id number] 07:34:00 Test Item Value Reference Range Comments TOTAL PROTEIN (BEAKER) 4.7 gm/dL 6.0-8.3 Specimen slightly (test dzwk=399) hemolyzed ALBUMIN (BEAKER) (test 3.0 g/dL 3.5-5.0 Specimen slightly awwg=5709) hemolyzed ALKALINE PHOSPHATASE 107 U/L 40-150 (BEAKER) (test xidq=123) BILIRUBIN TOTAL (BEAKER) 3.1 mg/dL 0.2-1.2 Specimen slightly (test vwqd=307) hemolyzed SODIUM (BEAKER) (test 125 meq/L 136-145 oczf=238) POTASSIUM (BEAKER) (test 4.9 meq/L 3.5-5.1 Specimen slightly maqo=988) hemolyzed CHLORIDE (BEAKER) (test 96 meq/L 98-107 nflk=085) CO2 (BEAKER) (test 24 meq/L 22-29 aadm=026) BLOOD UREA NITROGEN 30 mg/dL 7-21 (BEAKER) (test fkly=620) CREATININE (BEAKER) (test 1.61 mg/dL 0.57-1.25 Specimen slightly xcao=820) hemolyzed GLUCOSE RANDOM (BEAKER) 127 mg/dL 70-105 (test belc=181) CALCIUM (BEAKER) (test 8.6 mg/dL 8.4-10.2 dqcd=336) AST (SGOT) (BEAKER) (test 17 U/L 5-34 Specimen slightly rpra=237) hemolyzed ALT (SGPT) (BEAKER) (test < U/L 6-55 Specimen slightly ejwg=722) hemolyzed EGFR (BEAKER) (test 45 mL/min/1.73 sq m ESTIMATED GFR IS NOT xybt=3054) ACCURATE CREATININE CLEARANCE IN PREDICTING GLOMERULAR FILTRATION RATE. ESTIMATED GFR IS NOT APPLICABLE FOR DIALYSIS PATIENTS. Specimen slightly [id number] 06:49:00 Test Item Value Reference Range Comments PHOSPHORUS (BEAKER) (test dpeu=393) 3.0 mg/dL 2.3-4.7 [id number] 06:49:00 Test Item Value Reference Range Comments MAGNESIUM (BEAKER) (test jztk=413) 2.0 mg/dL 1.6-2.6 PROTHROMBIN [id number] 06:39:00 Test Item Value Reference Range Comments PROTIME (BEAKER) (test fzyz=781) 23.0 seconds 11.7-14.7 INR (BEAKER) (test xdkk=228) 2.0 <=5.9 RECOMMENDED COUMADIN/WARFARIN INR THERAPY RANGESSTANDARD DOSE: 2.0 - 3.0 Includes: PROPHYLAXIS forvenous thrombosis, systemic embolization; TREATMENT for venous thrombosis and/or pulmonary embolus.HIGH RISK: Target INR is 2.5-3.5 for patients with mechanical heart valves.CBC W/PLT COUNT & AUTO [id number] 06:37:00 Test Item Value Reference Range Comments WHITE BLOOD CELL COUNT (BEAKER) (test oukh=985) 3.3 K/ L 3.5-10.5 RED BLOOD CELL COUNT (BEAKER) (test oxja=974) 2.43 M/ L 4.63-6.08 HEMOGLOBIN (BEAKER) (test jlyb=813) 7.8 GM/DL 13.7-17.5 HEMATOCRIT (BEAKER) (test icpy=146) 22.7 % 40.1-51.0 MEAN CORPUSCULAR VOLUME (BEAKER) (test yqjh=233) 93.4 fL 79.0-92.2 MEAN CORPUSCULAR HEMOGLOBIN (BEAKER) (test 32.1 pg 25.7-32.2 buwa=979) MEAN CORPUSCULAR HEMOGLOBIN CONC (BEAKER) (test 34.4 GM/DL 32.3-36.5 cuin=115) RED CELL DISTRIBUTION WIDTH (BEAKER) (test 15.7 % 11.6-14.4 uvfj=523) PLATELET COUNT (BEAKER) (test ljms=104) 37 K/CU MM 150-450 MEAN PLATELET VOLUME (BEAKER) (test xrbg=406) 9.6 fL 9.4-12.4 NUCLEATED RED BLOOD CELLS (BEAKER) (test 0 /100 WBC 0-0 cxko=517) NEUTROPHILS RELATIVE PERCENT (BEAKER) (test 70 % brra=559) LYMPHOCYTES RELATIVE PERCENT (BEAKER) (test 16 % hwft=306) MONOCYTES RELATIVE PERCENT (BEAKER) (test 11 % ffbq=563) EOSINOPHILS RELATIVE PERCENT (BEAKER) (test 2 % ckwc=542) BASOPHILS RELATIVE PERCENT (BEAKER) (test 0 % kkvg=061) NEUTROPHILS ABSOLUTE COUNT (BEAKER) (test 2.29 K/ L 1.78-5.38 frgm=381) LYMPHOCYTES ABSOLUTE COUNT (BEAKER) (test 0.51 K/ L 1.32-3.57 czcb=303) MONOCYTES ABSOLUTE COUNT (BEAKER) (test hokb=326) 0.37 K/ L 0.30-0.82 EOSINOPHILS ABSOLUTE COUNT (BEAKER) (test 0.07 K/ L 0.04-0.54 sfna=796) BASOPHILS ABSOLUTE COUNT (BEAKER) (test onym=128) 0.01 K/ L 0.01-0.08 IMMATURE GRANULOCYTES-RELATIVE PERCENT (BEAKER) 0 % 0-1 (test osqu=0802) CALCIUM, [id number] 06:36:00 Test Item Value Reference Range Comments CALCIUM IONIZED (BEAKER) (test zpxn=186) 1.00 mmol/L 1.12-1.27 PH, BLOOD (BEAKER) (test mpje=4071) 7.53 POCT-GLUCOSE [id number] 22:31:00 Test Item Value Reference Range Comments POC-GLUCOSE METER (BEAKER) 185 mg/dL 70-110 TESTED AT [address] (test aija=0733) [facility] [address] POCT-GLUCOSE [id number] 16:03:00 Test Item Value Reference Range Comments POC-GLUCOSE METER (BEAKER) 166 mg/dL 70-110 TESTED AT [address] (test numq=9524) [facility] [address] POCT-GLUCOSE [id number] 12:05:00 Test Item Value Reference Range Comments POC-GLUCOSE METER (BEAKER) 175 mg/dL 70-110 TESTED AT [address] (test eczb=3983) [facility] [address] POCT-GLUCOSE [id number] 08:02:00 Test Item Value Reference Range Comments POC-GLUCOSE METER (BEAKER) 162 mg/dL 70-110 TESTED AT [address] (test cwrs=4330) [place] [address] [id number] 03:52:00 Test Item Value Reference Range Comments MAGNESIUM (BEAKER) (test 2.1 mg/dL 1.6-2.6 Specimen slightly hemolyzed rrof=948) [id number] 03:52:00 Test Item Value Reference Range Comments PHOSPHORUS (BEAKER) (test 3.0 mg/dL 2.3-4.7 Specimen slightly hemolyzed kwfk=387) COMPREHENSIVE METABOLIC [id number] 03:52:00 Test Item Value Reference Range Comments TOTAL PROTEIN (BEAKER) 4.9 gm/dL 6.0-8.3 Specimen slightly (test qkbm=896) hemolyzed ALBUMIN (BEAKER) (test 3.2 g/dL 3.5-5.0 Specimen slightly qrvk=4191) hemolyzed ALKALINE PHOSPHATASE 109 U/L 40-150 (BEAKER) (test iplt=061) BILIRUBIN TOTAL (BEAKER) 2.7 mg/dL 0.2-1.2 Specimen slightly (test oyom=387) hemolyzed SODIUM (BEAKER) (test 125 meq/L 136-145 dotk=626) POTASSIUM (BEAKER) (test 4.7 meq/L 3.5-5.1 Specimen slightly smet=412) hemolyzed CHLORIDE (BEAKER) (test 96 meq/L 98-107 ksxa=668) CO2 (BEAKER) (test 23 meq/L 22-29 rfom=880) BLOOD UREA NITROGEN 27 mg/dL 7-21 (BEAKER) (test zsgk=768) CREATININE (BEAKER) (test 1.86 mg/dL 0.57-1.25 Specimen slightly luts=790) hemolyzed GLUCOSE RANDOM (BEAKER) 164 mg/dL 70-105 (test lqht=398) CALCIUM (BEAKER) (test 8.4 mg/dL 8.4-10.2 frsw=381) AST (SGOT) (BEAKER) (test 17 U/L 5-34 Specimen slightly ovxc=398) hemolyzed ALT (SGPT) (BEAKER) (test 6 U/L 6-55 Specimen slightly eljb=981) hemolyzed EGFR (BEAKER) (test 38 mL/min/1.73 sq m ESTIMATED GFR IS NOT gxtz=7748) ACCURATE CREATININE CLEARANCE IN PREDICTING GLOMERULAR FILTRATION RATE. ESTIMATED GFR IS NOT APPLICABLE FOR DIALYSIS PATIENTS. Specimen slightly ictericCALCIUM, [id number] 03:13:00 Test Item Value Reference Range Comments CALCIUM IONIZED (BEAKER) (test glxe=134) 0.94 mmol/L 1.12-1.27 PH, BLOOD (BEAKER) (test ttxd=4042) 7.55 PROTHROMBIN [id number] 03:10:00 Test Item Value Reference Range Comments PROTIME (BEAKER) (test dmvw=917) 22.6 seconds 11.7-14.7 INR (BEAKER) (test xiir=109) 2.0 <=5.9 RECOMMENDED COUMADIN/WARFARIN INR THERAPY RANGESSTANDARD DOSE: 2.0 - 3.0 Includes: PROPHYLAXIS forvenous thrombosis, systemic embolization; TREATMENT for venous thrombosis and/or pulmonary embolus.HIGH RISK: Target INR is 2.5-3.5 for patients with mechanical heart valves.CBC W/PLT COUNT & AUTO [id number] 03:03:00 Test Item Value Reference Range Comments WHITE BLOOD CELL COUNT (BEAKER) (test knru=931) 3.4 K/ L 3.5-10.5 RED BLOOD CELL COUNT (BEAKER) (test kxxg=689) 2.46 M/ L 4.63-6.08 HEMOGLOBIN (BEAKER) (test xwcy=134) 7.8 GM/DL 13.7-17.5 HEMATOCRIT (BEAKER) (test yydg=664) 23.5 % 40.1-51.0 MEAN CORPUSCULAR VOLUME (BEAKER) (test gihs=579) 95.5 fL 79.0-92.2 MEAN CORPUSCULAR HEMOGLOBIN (BEAKER) (test 31.7 pg 25.7-32.2 jmpn=063) MEAN CORPUSCULAR HEMOGLOBIN CONC (BEAKER) (test 33.2 GM/DL 32.3-36.5 eocy=955) RED CELL DISTRIBUTION WIDTH (BEAKER) (test 15.6 % 11.6-14.4 ccep=151) PLATELET COUNT (BEAKER) (test jrjb=770) 44 K/CU MM 150-450 MEAN PLATELET VOLUME (BEAKER) (test rfdj=522) 10.6 fL 9.4-12.4 NUCLEATED RED BLOOD CELLS (BEAKER) (test 0 /100 WBC 0-0 scrb=160) NEUTROPHILS RELATIVE PERCENT (BEAKER) (test 79 % klun=948) LYMPHOCYTES RELATIVE PERCENT (BEAKER) (test 12 % nebx=943) MONOCYTES RELATIVE PERCENT (BEAKER) (test 8 % yfgp=536) EOSINOPHILS RELATIVE PERCENT (BEAKER) (test 0 % eofw=544) BASOPHILS RELATIVE PERCENT (BEAKER) (test 0 % sixg=887) NEUTROPHILS ABSOLUTE COUNT (BEAKER) (test 2.67 K/ L 1.78-5.38 lnsg=165) LYMPHOCYTES ABSOLUTE COUNT (BEAKER) (test 0.41 K/ L 1.32-3.57 jgmr=302) MONOCYTES ABSOLUTE COUNT (BEAKER) (test icjn=478) 0.27 K/ L 0.30-0.82 EOSINOPHILS ABSOLUTE COUNT (BEAKER) (test 0.01 K/ L 0.04-0.54 uagj=963) BASOPHILS ABSOLUTE COUNT (BEAKER) (test krjy=568) 0.01 K/ L 0.01-0.08 IMMATURE GRANULOCYTES-RELATIVE PERCENT (BEAKER) 0 % 0-1 (test cagh=2687) POCT-GLUCOSE [id number] 22:50:00 Test Item Value Reference Range Comments POC-GLUCOSE METER (BEAKER) 199 mg/dL 70-110 TESTED AT [facility] [address] [facility] [place] (test ykdb=1720) [facility] [address] BODY FLUID CELL COUNT WITH [id number] 21:09:00 Test Item Value Reference Range Comments APPEARANCE FLUID (BEAKER) (test igfm=289) Clear Clear COLOR FLUID (BEAKER) (test pncg=281) Yellow Colorless, Straw RBC FLUID (BEAKER) (test gqza=987) 140 /cu mm <=1 ADJUSTED WBC FLUID (BEAKER) (test cyxi=4387) 70 /cu mm <=5 LINING CELLS (BEAKER) (test xsav=0993) 0 /cu mm <=1 NEUTROPHILS FLUID (BEAKER) (test nwpt=5567) 5 % LYMPHS FLUID (BEAKER) (test tezb=675) 18 % MONO/MACROPHAGE FLUID (BEAKER) (test xzmy=799) 77 % EOSINOPHILS FLUID (BEAKER) (test htcv=261) 0 % BASO FLUID (BEAKER) (test zrlu=056) 0 % CONTAINER BODY FLUID (BEAKER) (test btfn=1749) EDTA Tube CORTISOL,60 [id number] 20:10:00 Test Item Value Reference Range Comments CORTISOL BASELINE NETWORKED (BEAKER) (test 5.6 mcg/dL nqwv=7145) CORTISOL 30 MINUTE NETWORKED (BEAKER) (test 13.7 mcg/dL rjvo=0593) CORTISOL, 60 MINUTE (BEAKER) (test xifo=9726) 17.1 ug/dL ACTH STIMULATION TEST INTERPRETATION GUIDELINES(Synonyms: [...] serum cortisollevel 60 minutes after cosyntropin administration.CORTISOL,30 [id number] 19:45:00 Test Item Value Reference Range Comments CORTISOL BASELINE NETWORKED (BEAKER) (test 5.6 mcg/dL qmyz=4141) CORTISOL, 30 MINUTE (BEAKER) (test eioq=5342) 13.7 ug/dL ACTH STIMULATION TEST INTERPRETATION GUIDELINES(Synonyms: [...] serum cortisollevel 60 minutes after cosyntropin administration.U/S, [id number] 19:13:00Reason for exam:->therapeuticFINAL REPORT PROCEDURE: Ultrasound- guided paracentesis. INDICATION: Ascites. DESCRIPTION: After obtaining informed written consent, ultrasound scan of the abdomen identified ascites in the right lower quadrant. The overlying skin was prepped and draped in the usual, sterile fashion and local 1% lidocaine anesthesia was administered. A 5 Portuguese catheter was advanced into the peritoneal cavity and 6000 mL of area fluid was removed. The catheter was removed without immediate complication. Samples were sent for analysis. IMPRESSION:Uncomplicated ultrasound-guided paracentesis with 6000 mL of fluid removed. Signed: Stuart Dupree Verified Date/Time: 09/08/2018 19 :13:16 Reading Location: [address] Ultrasound Reading Room Electronically signed by: Claudia WEAVER 09/08/2018 07:13 PMCORTISOL, [id number] 18:54:00 Test Item Value Reference Range Comments CORTISOL, BASELINE (TUNG) (test ttqm=4643) 5.6 ug/dL ACTH STIMULATION TEST INTERPRETATION GUIDELINES(Synonyms: [...] study by Mindy et al (NEVAEH 2000,283( 8):6648-45), the ACTH Stimulation Test provides important prognostic [...] serum cortisollevel 60 minutes after cosyntropin administration.POCT-GLUCOSE [id number] 12:49:00 Test Item Value Reference Range Comments POC-GLUCOSE METER (BEAKER) 184 mg/dL 70-110 TESTED AT [address] (test loks=9084) [place] [address] POCT-GLUCOSE [id number] 07:56:00 Test Item Value Reference Range Comments POC-GLUCOSE METER (BEAKER) 174 mg/dL 70-110 TESTED AT [address] (test mpox=3774) [place] [address] B-TYPE NATRIURETIC FACTOR (BNP)2018-09-08 05:20:00 Test Item Value Reference Range Comments B-TYPE NATRIURETIC PEPTIDE (BEAKER) (test 900 pg/mL 0-100 flfk=413) [id number] 05:15:00 Test Item Value Reference Range Comments PHOSPHORUS (BEAKER) (test hdpt=706) 3.2 mg/dL 2.3-4.7 [id number] 05:15:00 Test Item Value Reference Range Comments MAGNESIUM (BEAKER) (test nkyc=853) 2.1 mg/dL 1.6-2.6 COMPREHENSIVE METABOLIC [id number] 05:15:00 Test Item Value Reference Range Comments TOTAL PROTEIN (BEAKER) 4.9 gm/dL 6.0-8.3 (test cawm=645) ALBUMIN (BEAKER) (test 3.2 g/dL 3.5-5.0 rnlg=0428) ALKALINE PHOSPHATASE 109 U/L 40-150 (BEAKER) (test pkbl=648) BILIRUBIN TOTAL (BEAKER) 2.7 mg/dL 0.2-1.2 (test abpk=643) SODIUM (BEAKER) (test 128 meq/L 136-145 vuwa=729) POTASSIUM (BEAKER) (test 3.9 meq/L 3.5-5.1 rzlb=106) CHLORIDE (BEAKER) (test 98 meq/L 98-107 vffl=621) CO2 (BEAKER) (test 23 meq/L 22-29 moui=989) BLOOD UREA NITROGEN 27 mg/dL 7-21 (BEAKER) (test fhjd=492) CREATININE (BEAKER) (test 2.17 mg/dL 0.57-1.25 gecz=277) GLUCOSE RANDOM (BEAKER) 136 mg/dL 70-105 (test nukq=813) CALCIUM (BEAKER) (test 8.6 mg/dL 8.4-10.2 tnrt=529) AST (SGOT) (BEAKER) (test 15 U/L 5-34 eqzv=621) ALT (SGPT) (BEAKER) (test 7 U/L 6-55 miod=640) EGFR (BEAKER) (test 32 mL/min/1.73 sq m ESTIMATED GFR IS NOT wngn=4086) ACCURATE CREATININE CLEARANCE IN PREDICTING GLOMERULAR FILTRATION RATE. ESTIMATED GFR IS NOT APPLICABLE FOR DIALYSIS PATIENTS. Specimen slightly ictericPROTHROMBIN [id number] 05:01:00 Test Item Value Reference Range Comments PROTIME (BEAKER) (test kxpf=613) 22.0 seconds 11.7-14.7 INR (BEAKER) (test cjmi=580) 1.9 <=5.9 RECOMMENDED COUMADIN/WARFARIN INR THERAPY RANGESSTANDARD DOSE: 2.0 - 3.0 Includes: PROPHYLAXIS forvenous thrombosis, systemic embolization; TREATMENT for venous thrombosis and/or pulmonary embolus.HIGH RISK: Target INR is 2.5-3.5 for patients with mechanical heart valves.CBC W/PLT COUNT & AUTO [id number] 04:55:00 Test Item Value Reference Range Comments WHITE BLOOD CELL COUNT (BEAKER) (test nkoy=014) 4.3 K/ L 3.5-10.5 RED BLOOD CELL COUNT (BEAKER) (test fiea=822) 2.46 M/ L 4.63-6.08 HEMOGLOBIN (BEAKER) (test sgoc=954) 7.9 GM/DL 13.7-17.5 HEMATOCRIT (BEAKER) (test utjh=064) 23.3 % 40.1-51.0 MEAN CORPUSCULAR VOLUME (BEAKER) (test qvtp=998) 94.7 fL 79.0-92.2 MEAN CORPUSCULAR HEMOGLOBIN (BEAKER) (test 32.1 pg 25.7-32.2 zuzn=400) MEAN CORPUSCULAR HEMOGLOBIN CONC (BEAKER) (test 33.9 GM/DL 32.3-36.5 cbmx=449) RED CELL DISTRIBUTION WIDTH (BEAKER) (test 15.6 % 11.6-14.4 wptm=888) PLATELET COUNT (BEAKER) (test mato=455) 43 K/CU MM 150-450 MEAN PLATELET VOLUME (BEAKER) (test ewom=187) 9.6 fL 9.4-12.4 NUCLEATED RED BLOOD CELLS (BEAKER) (test 0 /100 WBC 0-0 zlzi=215) NEUTROPHILS RELATIVE PERCENT (BEAKER) (test 63 % czgv=411) LYMPHOCYTES RELATIVE PERCENT (BEAKER) (test 13 % xffv=254) MONOCYTES RELATIVE PERCENT (BEAKER) (test 19 % pfvq=194) EOSINOPHILS RELATIVE PERCENT (BEAKER) (test 5 % otps=776) BASOPHILS RELATIVE PERCENT (BEAKER) (test 0 % slya=667) NEUTROPHILS ABSOLUTE COUNT (BEAKER) (test 2.72 K/ L 1.78-5.38 osfh=082) LYMPHOCYTES ABSOLUTE COUNT (BEAKER) (test 0.55 K/ L 1.32-3.57 czpz=227) MONOCYTES ABSOLUTE COUNT (BEAKER) (test fwbs=463) 0.81 K/ L 0.30-0.82 EOSINOPHILS ABSOLUTE COUNT (BEAKER) (test 0.21 K/ L 0.04-0.54 nmfk=607) BASOPHILS ABSOLUTE COUNT (BEAKER) (test cogf=118) 0.01 K/ L 0.01-0.08 IMMATURE GRANULOCYTES-RELATIVE PERCENT (BEAKER) 0 % 0-1 (test uaxm=9729) POCT-GLUCOSE [id number] 23:33:00 Test Item Value Reference Range Comments POC-GLUCOSE METER (BEAKER) 156 mg/dL 70-110 TESTED AT [facility] [address] (test jeom=2423) [facility] [address] POCT-GLUCOSE [id number] 18:09:00 Test Item Value Reference Range Comments POC-GLUCOSE METER (BEAKER) 170 mg/dL 70-110 TESTED AT [address] (test wola=5967) [facility] [address] POCT-GLUCOSE [id number] 12:01:00 Test Item Value Reference Range Comments POC-GLUCOSE METER (BEAKER) 181 mg/dL 70-110 TESTED AT [address] (test ahil=0460) [facility] [address] PROTHROMBIN [id number] 08:17:00 Test Item Value Reference Range Comments PROTIME (BEAKER) (test zzyy=064) 21.9 seconds 11.7-14.7 INR (BEAKER) (test iczc=681) 1.9 <=5.9 RECOMMENDED COUMADIN/WARFARIN INR THERAPY RANGESSTANDARD DOSE: 2.0 - 3.0 Includes: PROPHYLAXIS forvenous thrombosis, systemic embolization; TREATMENT for venous thrombosis and/or pulmonary embolus.HIGH RISK: Target INR is 2.5-3.5 for patients with mechanical heart valves.POCT-GLUCOSE [id number] 08:07:00 Test Item Value Reference Range Comments POC-GLUCOSE METER (BEAKER) 205 mg/dL 70-110 TESTED AT [address] (test dkjq=2013) [facility] [address] COMPREHENSIVE METABOLIC [id number] 07:29:00 Test Item Value Reference Range Comments TOTAL PROTEIN (BEAKER) 4.9 gm/dL 6.0-8.3 (test tlgp=939) ALBUMIN (BEAKER) (test 3.3 g/dL 3.5-5.0 nnef=0858) ALKALINE PHOSPHATASE 106 U/L 40-150 (BEAKER) (test yyzc=504) BILIRUBIN TOTAL (BEAKER) 2.6 mg/dL 0.2-1.2 (test hsib=372) SODIUM (BEAKER) (test 129 meq/L 136-145 gewv=751) POTASSIUM (BEAKER) (test 4.9 meq/L 3.5-5.1 djyy=144) CHLORIDE (BEAKER) (test 98 meq/L 98-107 iaux=608) CO2 (BEAKER) (test 23 meq/L 22-29 knni=006) BLOOD UREA NITROGEN 28 mg/dL 7-21 (BEAKER) (test qjut=860) CREATININE (BEAKER) (test 2.31 mg/dL 0.57-1.25 pcuu=497) GLUCOSE RANDOM (BEAKER) 172 mg/dL 70-105 (test ybvt=452) CALCIUM (BEAKER) (test 8.5 mg/dL 8.4-10.2 jsqz=829) AST (SGOT) (BEAKER) (test 15 U/L 5-34 oyzl=441) ALT (SGPT) (BEAKER) (test 6 U/L 6-55 gncf=425) EGFR (BEAKER) (test 30 mL/min/1.73 sq m ESTIMATED GFR IS NOT pgaf=4085) ACCURATE CREATININE CLEARANCE IN PREDICTING GLOMERULAR FILTRATION RATE. ESTIMATED GFR IS NOT APPLICABLE FOR DIALYSIS PATIENTS. Specimen slightly ictericCBC W/PLT COUNT & AUTO [id number] 07:11 :00 Test Item Value Reference Range Comments WHITE BLOOD CELL COUNT (BEAKER) (test zogo=933) 4.5 K/ L 3.5-10.5 RED BLOOD CELL COUNT (BEAKER) (test cssx=040) 2.47 M/ L 4.63-6.08 HEMOGLOBIN (BEAKER) (test upku=204) 7.8 GM/DL 13.7-17.5 HEMATOCRIT (BEAKER) (test blrf=050) 23.3 % 40.1-51.0 MEAN CORPUSCULAR VOLUME (BEAKER) (test basn=623) 94.3 fL 79.0-92.2 MEAN CORPUSCULAR HEMOGLOBIN (BEAKER) (test 31.6 pg 25.7-32.2 vmjq=326) MEAN CORPUSCULAR HEMOGLOBIN CONC (BEAKER) (test 33.5 GM/DL 32.3-36.5 ruyg=908) RED CELL DISTRIBUTION WIDTH (BEAKER) (test 15.4 % 11.6-14.4 oasd=888) PLATELET COUNT (BEAKER) (test wbzh=099) 43 K/CU MM 150-450 MEAN PLATELET VOLUME (BEAKER) (test klgx=575) 8.7 fL 9.4-12.4 NUCLEATED RED BLOOD CELLS (BEAKER) (test 0 /100 WBC 0-0 nzwf=458) NEUTROPHILS RELATIVE PERCENT (BEAKER) (test 64 % rtew=459) LYMPHOCYTES RELATIVE PERCENT (BEAKER) (test 11 % xyvu=043) MONOCYTES RELATIVE PERCENT (BEAKER) (test 20 % tofn=887) EOSINOPHILS RELATIVE PERCENT (BEAKER) (test 4 % spjn=838) BASOPHILS RELATIVE PERCENT (BEAKER) (test 0 % ukgj=733) NEUTROPHILS ABSOLUTE COUNT (BEAKER) (test 2.86 K/ L 1.78-5.38 ltom=680) LYMPHOCYTES ABSOLUTE COUNT (BEAKER) (test 0.49 K/ L 1.32-3.57 ybhb=642) MONOCYTES ABSOLUTE COUNT (BEAKER) (test algj=704) 0.90 K/ L 0.30-0.82 EOSINOPHILS ABSOLUTE COUNT (BEAKER) (test 0.18 K/ L 0.04-0.54 hnve=469) BASOPHILS ABSOLUTE COUNT (BEAKER) (test ocni=133) 0.02 K/ L 0.01-0.08 IMMATURE GRANULOCYTES-RELATIVE PERCENT (BEAKER) 0 % 0-1 (test vzkd=8486) POCT-GLUCOSE [id number] 22:31:00 Test Item Value Reference Range Comments POC-GLUCOSE METER (BEAKER) 161 mg/dL 70-110 TESTED AT [address] (test pwyn=6394) [place] [id number] POCT-GLUCOSE [id number] 16:31:00 Test Item Value Reference Range Comments POC-GLUCOSE METER (BEAKER) 135 mg/dL 70-110 TESTED AT [address] (test vozc=4182) [place] [id number] POCT-GLUCOSE [id number] 12:16:00 Test Item Value Reference Range Comments POC-GLUCOSE METER (BEAKER) 144 mg/dL 70-110 TESTED AT [address] (test ecsr=9202) [facility] [address] POCT-GLUCOSE [id number] 07:53:00 Test Item Value Reference Range Comments POC-GLUCOSE METER (BEAKER) 93 mg/dL 70-110 TESTED AT [address] (test hccn=2855) [facility] [address] COMPREHENSIVE METABOLIC [id number] 06:55:00 Test Item Value Reference Range Comments TOTAL PROTEIN (BEAKER) 4.8 gm/dL 6.0-8.3 (test tzde=455) ALBUMIN (BEAKER) (test 3.3 g/dL 3.5-5.0 gkiu=4628) ALKALINE PHOSPHATASE 103 U/L 40-150 (BEAKER) (test coya=362) BILIRUBIN TOTAL (BEAKER) 2.7 mg/dL 0.2-1.2 (test lgwy=257) SODIUM (BEAKER) (test 125 meq/L 136-145 jncf=289) POTASSIUM (BEAKER) (test 4.6 meq/L 3.5-5.1 wemx=486) CHLORIDE (BEAKER) (test 96 meq/L 98-107 lzjl=530) CO2 (BEAKER) (test 22 meq/L 22-29 tacx=163) BLOOD UREA NITROGEN 30 mg/dL 7-21 (BEAKER) (test rglg=450) CREATININE (BEAKER) (test 2.01 mg/dL 0.57-1.25 aehx=493) GLUCOSE RANDOM (BEAKER) 88 mg/dL 70-105 (test jzsv=432) CALCIUM (BEAKER) (test 8.5 mg/dL 8.4-10.2 lbxi=019) AST (SGOT) (BEAKER) (test 17 U/L 5-34 ywac=720) ALT (SGPT) (BEAKER) (test 7 U/L 6-55 luzl=191) EGFR (BEAKER) (test 35 mL/min/1.73 sq m ESTIMATED GFR IS NOT mydn=3473) ACCURATE CREATININE CLEARANCE IN PREDICTING GLOMERULAR FILTRATION RATE. ESTIMATED GFR IS NOT APPLICABLE FOR DIALYSIS PATIENTS. Specimen slightly ictericPROTHROMBIN TIME/[id number] 06:10:00 Test Item Value Reference Range Comments PROTIME (BEAKER) (test cpht=488) 23.2 seconds 11.7-14.7 INR (BEAKER) (test pgzg=719) 2.1 <=5.9 RECOMMENDED COUMADIN/WARFARIN INR THERAPY RANGESSTANDARD DOSE: 2.0 - 3.0 Includes: PROPHYLAXIS forvenous thrombosis, systemic embolization; TREATMENT for venous thrombosis and/or pulmonary embolus.HIGH RISK: Target INR is 2.5-3.5 for patients with mechanical heart valves.POCT-GLUCOSE [id number] 22:42:00 Test Item Value Reference Range Comments POC-GLUCOSE METER (BEAKER) 124 mg/dL 70-110 TESTED AT [address] (test ugmn=3817) [facility] [address] POCT-GLUCOSE [id number] 17:04:00 Test Item Value Reference Range Comments POC-GLUCOSE METER (BEAKER) 86 mg/dL 70-110 TESTED AT [address] (test ybxh=5603) [facility] [address] POCT-GLUCOSE [id number] 12:08:00 Test Item Value Reference Range Comments POC-GLUCOSE METER (BEAKER) 159 mg/dL 70-110 TESTED AT [facility] [address] [place] (test vdat=0092) [facility] [address] [id number] 08:39:00 Test Item Value Reference Range Comments PHOSPHORUS (BEAKER) (test hurf=680) 3.9 mg/dL 2.3-4.7 [id number] 08:39:00 Test Item Value Reference Range Comments MAGNESIUM (BEAKER) (test xysd=668) 2.1 mg/dL 1.6-2.6 COMPREHENSIVE METABOLIC [id number] 08:39:00 Test Item Value Reference Range Comments TOTAL PROTEIN (BEAKER) 5.2 gm/dL 6.0-8.3 (test kqze=804) ALBUMIN (BEAKER) (test 3.5 g/dL 3.5-5.0 rgqn=9356) ALKALINE PHOSPHATASE 110 U/L 40-150 (BEAKER) (test igcx=559) BILIRUBIN TOTAL (BEAKER) 2.4 mg/dL 0.2-1.2 (test prtm=465) SODIUM (BEAKER) (test 122 meq/L 136-145 zmag=931) POTASSIUM (BEAKER) (test 4.5 meq/L 3.5-5.1 ixgy=315) CHLORIDE (BEAKER) (test 94 meq/L 98-107 titj=964) CO2 (BEAKER) (test 20 meq/L 22-29 zpgs=607) BLOOD UREA NITROGEN 31 mg/dL 7-21 (BEAKER) (test lduf=437) CREATININE (BEAKER) (test 1.94 mg/dL 0.57-1.25 wmjf=287) GLUCOSE RANDOM (BEAKER) 127 mg/dL 70-105 (test olta=797) CALCIUM (BEAKER) (test 8.6 mg/dL 8.4-10.2 poko=278) AST (SGOT) (BEAKER) (test 17 U/L 5-34 ccnh=305) ALT (SGPT) (BEAKER) (test 8 U/L 6-55 uqsu=192) EGFR (BEAKER) (test 36 mL/min/1.73 sq m ESTIMATED GFR IS NOT hsst=3067) ACCURATE CREATININE CLEARANCE IN PREDICTING GLOMERULAR FILTRATION RATE. ESTIMATED GFR IS NOT APPLICABLE FOR DIALYSIS PATIENTS. Specimen slightly ictericPOCT-GLUCOSE [id number] 07:49:00 Test Item Value Reference Range Comments POC-GLUCOSE METER (BEAKER) 132 mg/dL 70-110 TESTED AT [facility] [address] [place] (test ykhm=9472) [place] [address] CALCIUM, [id number] 06:35:00 Test Item Value Reference Range Comments CALCIUM IONIZED (BEAKER) (test uoed=895) 1.08 mmol/L 1.12-1.27 PH, BLOOD (BEAKER) (test lele=4407) 7.39 CBC W/PLT COUNT & AUTO [id number] 05:56:00 Test Item Value Reference Range Comments WHITE BLOOD CELL COUNT (BEAKER) (test chdf=132) 4.1 K/ L 3.5-10.5 RED BLOOD CELL COUNT (BEAKER) (test ngxj=828) 2.67 M/ L 4.63-6.08 HEMOGLOBIN (BEAKER) (test zgav=127) 8.3 GM/DL 13.7-17.5 HEMATOCRIT (BEAKER) (test ovod=675) 24.7 % 40.1-51.0 MEAN CORPUSCULAR VOLUME (BEAKER) (test vupr=992) 92.5 fL 79.0-92.2 MEAN CORPUSCULAR HEMOGLOBIN (BEAKER) (test 31.1 pg 25.7-32.2 yuxy=601) MEAN CORPUSCULAR HEMOGLOBIN CONC (BEAKER) (test 33.6 GM/DL 32.3-36.5 hhqu=886) RED CELL DISTRIBUTION WIDTH (BEAKER) (test 15.0 % 11.6-14.4 khzx=965) PLATELET COUNT (BEAKER) (test baho=827) 58 K/CU MM 150-450 MEAN PLATELET VOLUME (BEAKER) (test vkas=458) 9.3 fL 9.4-12.4 NUCLEATED RED BLOOD CELLS (BEAKER) (test 0 /100 WBC 0-0 pwgm=818) NEUTROPHILS RELATIVE PERCENT (BEAKER) (test 64 % kjmc=318) LYMPHOCYTES RELATIVE PERCENT (BEAKER) (test 12 % xbwt=877) MONOCYTES RELATIVE PERCENT (BEAKER) (test 18 % vtzn=351) EOSINOPHILS RELATIVE PERCENT (BEAKER) (test 5 % smxk=850) BASOPHILS RELATIVE PERCENT (BEAKER) (test 0 % rkme=708) NEUTROPHILS ABSOLUTE COUNT (BEAKER) (test 2.63 K/ L 1.78-5.38 sjmj=407) LYMPHOCYTES ABSOLUTE COUNT (BEAKER) (test 0.51 K/ L 1.32-3.57 ikxm=046) MONOCYTES ABSOLUTE COUNT (BEAKER) (test cttz=074) 0.74 K/ L 0.30-0.82 EOSINOPHILS ABSOLUTE COUNT (BEAKER) (test 0.21 K/ L 0.04-0.54 lgpp=371) BASOPHILS ABSOLUTE COUNT (BEAKER) (test znzx=733) 0.01 K/ L 0.01-0.08 IMMATURE GRANULOCYTES-RELATIVE PERCENT (BEAKER) 1 % 0-1 (test mfjy=5911) PROTHROMBIN [id number] 05:49:00 Test Item Value Reference Range Comments PROTIME (BEAKER) (test kehq=748) 20.4 seconds 11.7-14.7 INR (BEAKER) (test bann=253) 1.8 <=5.9 RECOMMENDED COUMADIN/WARFARIN INR THERAPY RANGESSTANDARD DOSE: 2.0 - 3.0 Includes: PROPHYLAXIS forvenous thrombosis, systemic embolization; TREATMENT for venous thrombosis and/or pulmonary embolus.HIGH RISK: Target INR is 2.5-3.5 for patients with mechanical heart valves.[id number] 22:31:00 Test Item Value Reference Range Comments SODIUM (BEAKER) (test jauh=392) 123 meq/L 136-145 POTASSIUM (BEAKER) (test czop=169) 4.5 meq/L 3.5-5.1 CHLORIDE (BEAKER) (test fnug=487) 94 meq/L 98-107 CO2 (BEAKER) (test ogai=664) 22 meq/L 22-29 Call results "at a decent hour" to [phone]-GLUCOSE [id number] 21: 48:00 Test Item Value Reference Range Comments POC-GLUCOSE METER (BEAKER) 144 mg/dL 70-110 TESTED AT [facility] [address] [place] (test efoq=5535) [facility] [address] [id number] 17:27:00 Test Item Value Reference Range Comments CORTISOL, TOTAL (BEAKER) (test zfaq=3045) 1.9 ug/dL 3.7-19.4 [id number] 17:03:00 Test Item Value Reference Range Comments SODIUM (BEAKER) (test tuzy=701) 123 meq/L 136-145 POTASSIUM (BEAKER) (test ahtb=481) 4.7 meq/L 3.5-5.1 CHLORIDE (BEAKER) (test lzlc=840) 95 meq/L 98-107 CO2 (BEAKER) (test rqkl=563) 21 meq/L 22-29 Call resultsPOCT-GLUCOSE [id number] 16:48:00 Test Item Value Reference Range Comments POC-GLUCOSE METER (BEAKER) 117 mg/dL 70-110 TESTED AT [address] (test imhb=0354) [place] [address] SODIUM, RANDOM [id number] 15:12:00 Test Item Value Reference Range Comments SODIUM URINE (BEAKER) (test faqz=079) < meq/L Reference Range: No NormalsCREATININE, RANDOM [id number] 15:11:00 Test Item Value Reference Range Comments CREATININE URINE (BEAKER) (test ueme=825) 87.5 mg/dL Reference Range: No NormalsOSMOLALITY, [id number] 15:05:00 Test Item Value Reference Range Comments OSMOLALITY URINE (BEAKER) (test lxcn=777) 234 mOsm/kg 40-1,400 POCT-GLUCOSE [id number] 13:14:00 Test Item Value Reference Range Comments POC-GLUCOSE METER (BEAKER) 129 mg/dL 70-110 TESTED AT [address] (test qvae=2829) [place] [address] [id number] 10:06:00 Test Item Value Reference Range Comments SODIUM (BEAKER) (test xejf=670) 120 meq/L 136-145 POTASSIUM (BEAKER) (test qjcm=829) 4.6 meq/L 3.5-5.1 CHLORIDE (BEAKER) (test jxkr=415) 93 meq/L 98-107 CO2 (BEAKER) (test mvcf=565) 23 meq/L 22-29 Call [id number] 09:01:00 Test Item Value Reference Range Comments POC-GLUCOSE METER (BEAKER) 97 mg/dL 70-110 TESTED AT [facility] [address] (test uuxc=3907) [facility] [address] COMPREHENSIVE METABOLIC [id number] 08:40:00 Test Item Value Reference Range Comments TOTAL PROTEIN (BEAKER) 5.2 gm/dL 6.0-8.3 (test ides=337) ALBUMIN (BEAKER) (test 3.7 g/dL 3.5-5.0 chqq=5318) ALKALINE PHOSPHATASE 104 U/L 40-150 (BEAKER) (test dhan=307) BILIRUBIN TOTAL (BEAKER) 3.3 mg/dL 0.2-1.2 (test foyz=980) SODIUM (BEAKER) (test 120 meq/L 136-145 keto=873) POTASSIUM (BEAKER) (test 4.8 meq/L 3.5-5.1 spch=295) CHLORIDE (BEAKER) (test 93 meq/L 98-107 paws=020) CO2 (BEAKER) (test 20 meq/L 22-29 koop=377) BLOOD UREA NITROGEN 31 mg/dL 7-21 (BEAKER) (test rjze=277) CREATININE (BEAKER) (test 1.72 mg/dL 0.57-1.25 prfo=161) GLUCOSE RANDOM (BEAKER) 99 mg/dL 70-105 (test roca=692) CALCIUM (BEAKER) (test 8.9 mg/dL 8.4-10.2 ugwj=087) AST (SGOT) (BEAKER) (test 16 U/L 5-34 lpzg=828) ALT (SGPT) (BEAKER) (test < U/L 6-55 vzdh=934) EGFR (BEAKER) (test 42 mL/min/1.73 sq m ESTIMATED GFR IS NOT cvsi=3522) ACCURATE CREATININE CLEARANCE IN PREDICTING GLOMERULAR FILTRATION RATE. ESTIMATED GFR IS NOT APPLICABLE FOR DIALYSIS PATIENTS. Specimen slightly [id number] 08:14:00 Test Item Value Reference Range Comments PHOSPHORUS (BEAKER) (test fpna=213) 3.8 mg/dL 2.3-4.7 [id number] 08:14:00 Test Item Value Reference Range Comments MAGNESIUM (BEAKER) (test wnca=659) 2.1 mg/dL 1.6-2.6 CALCIUM, [id number] 06:56:00 Test Item Value Reference Range Comments CALCIUM IONIZED (BEAKER) (test wwsq=388) 1.12 mmol/L 1.12-1.27 PH, BLOOD (BEAKER) (test noqi=7568) 7.36 CBC W/PLT COUNT & AUTO [id number] 06:38:00 Test Item Value Reference Range Comments WHITE BLOOD CELL COUNT (BEAKER) (test hypf=144) 4.9 K/ L 3.5-10.5 RED BLOOD CELL COUNT (BEAKER) (test mwps=405) 2.69 M/ L 4.63-6.08 HEMOGLOBIN (BEAKER) (test koky=035) 8.3 GM/DL 13.7-17.5 HEMATOCRIT (BEAKER) (test kmxt=987) 24.8 % 40.1-51.0 MEAN CORPUSCULAR VOLUME (BEAKER) (test mgaq=124) 92.2 fL 79.0-92.2 MEAN CORPUSCULAR HEMOGLOBIN (BEAKER) (test 30.9 pg 25.7-32.2 pvlr=180) MEAN CORPUSCULAR HEMOGLOBIN CONC (BEAKER) (test 33.5 GM/DL 32.3-36.5 zkeh=092) RED CELL DISTRIBUTION WIDTH (BEAKER) (test 14.8 % 11.6-14.4 xzgv=040) PLATELET COUNT (BEAKER) (test letf=917) 65 K/CU MM 150-450 MEAN PLATELET VOLUME (BEAKER) (test erkm=326) 9.1 fL 9.4-12.4 NUCLEATED RED BLOOD CELLS (BEAKER) (test 0 /100 WBC 0-0 dgfu=828) NEUTROPHILS RELATIVE PERCENT (BEAKER) (test 67 % lsbi=794) LYMPHOCYTES RELATIVE PERCENT (BEAKER) (test 10 % mfvd=528) MONOCYTES RELATIVE PERCENT (BEAKER) (test 17 % lprl=293) EOSINOPHILS RELATIVE PERCENT (BEAKER) (test 5 % ltcn=531) BASOPHILS RELATIVE PERCENT (BEAKER) (test 0 % owxd=452) NEUTROPHILS ABSOLUTE COUNT (BEAKER) (test 3.32 K/ L 1.78-5.38 mxkf=167) LYMPHOCYTES ABSOLUTE COUNT (BEAKER) (test 0.51 K/ L 1.32-3.57 aqmi=332) MONOCYTES ABSOLUTE COUNT (BEAKER) (test bewe=058) 0.83 K/ L 0.30-0.82 EOSINOPHILS ABSOLUTE COUNT (BEAKER) (test 0.23 K/ L 0.04-0.54 vlbf=838) BASOPHILS ABSOLUTE COUNT (BEAKER) (test iciz=907) 0.02 K/ L 0.01-0.08 IMMATURE GRANULOCYTES-RELATIVE PERCENT (BEAKER) 1 % 0-1 (test mmuz=5644) [id number] 06:35:00 Test Item Value Reference Range Comments PARTIAL THROMBOPLASTIN TIME (BEAKER) (test 52.6 seconds 22.5-36.0 tidc=699) PROTHROMBIN [id number] 06:34:00 Test Item Value Reference Range Comments PROTIME (BEAKER) (test jisa=719) 21.6 seconds 11.7-14.7 INR (BEAKER) (test hvrg=434) 1.9 <=5.9 RECOMMENDED COUMADIN/WARFARIN INR THERAPY RANGESSTANDARD DOSE: 2.0 - 3.0 Includes: PROPHYLAXIS forvenous thrombosis, systemic embolization; TREATMENT for venous thrombosis and/or pulmonary embolus.HIGH RISK: Target INR is 2.5-3.5 for patients with mechanical heart valves.POCT-GLUCOSE [id number] 22:00:00 Test Item Value Reference Range Comments POC-GLUCOSE METER (BEAKER) 114 mg/dL 70-110 TESTED AT [address] (test qfmh=9077) [place] [address] POCT-GLUCOSE [id number] 17:57:00 Test Item Value Reference Range Comments POC-GLUCOSE METER (BEAKER) 139 mg/dL 70-110 TESTED AT [address] (test tbhe=0985) [place] [address] POCT-GLUCOSE [id number] 11:57:00 Test Item Value Reference Range Comments POC-GLUCOSE METER (BEAKER) 146 mg/dL 70-110 TESTED AT [address] (test hnuy=3337) [place] [address] POCT-GLUCOSE [id number] 09:16:00 Test Item Value Reference Range Comments POC-GLUCOSE METER (BEAKER) 109 mg/dL 70-110 TESTED AT [address] (test ckdp=6822) [place] [address] COMPREHENSIVE METABOLIC [id number] 05:53:00 Test Item Value Reference Range Comments TOTAL PROTEIN (BEAKER) 5.2 gm/dL 6.0-8.3 (test timp=817) ALBUMIN (BEAKER) (test 3.8 g/dL 3.5-5.0 kxib=8765) ALKALINE PHOSPHATASE 110 U/L 40-150 (BEAKER) (test qgei=361) BILIRUBIN TOTAL (BEAKER) 4.5 mg/dL 0.2-1.2 (test tvys=688) SODIUM (BEAKER) (test 124 meq/L 136-145 jufr=228) POTASSIUM (BEAKER) (test 4.5 meq/L 3.5-5.1 oouv=926) CHLORIDE (BEAKER) (test 95 meq/L 98-107 avms=308) CO2 (BEAKER) (test 22 meq/L 22-29 oovu=511) BLOOD UREA NITROGEN 30 mg/dL 7-21 (BEAKER) (test anbd=596) CREATININE (BEAKER) (test 1.67 mg/dL 0.57-1.25 pgpj=400) GLUCOSE RANDOM (BEAKER) 99 mg/dL 70-105 (test mtby=156) CALCIUM (BEAKER) (test 9.0 mg/dL 8.4-10.2 kqes=940) AST (SGOT) (BEAKER) (test 16 U/L 5-34 lzoa=262) ALT (SGPT) (BEAKER) (test < U/L 6-55 nvbx=089) EGFR (BEAKER) (test 43 mL/min/1.73 sq m ESTIMATED GFR IS NOT ardz=5044) ACCURATE CREATININE CLEARANCE IN PREDICTING GLOMERULAR FILTRATION RATE. ESTIMATED GFR IS NOT APPLICABLE FOR DIALYSIS PATIENTS. Specimen slightly [id number] 05:50:00 Test Item Value Reference Range Comments PHOSPHORUS (BEAKER) (test ougc=856) 3.7 mg/dL 2.3-4.7 [id number] 05:50:00 Test Item Value Reference Range Comments MAGNESIUM (BEAKER) (test wbgu=437) 2.1 mg/dL 1.6-2.6 CBC W/PLT COUNT & AUTO [id number] 05:28:00 Test Item Value Reference Range Comments WHITE BLOOD CELL COUNT (BEAKER) (test outa=774) 4.0 K/ L 3.5-10.5 RED BLOOD CELL COUNT (BEAKER) (test riwd=163) 2.80 M/ L 4.63-6.08 HEMOGLOBIN (BEAKER) (test ntmy=251) 8.7 GM/DL 13.7-17.5 HEMATOCRIT (BEAKER) (test islw=455) 25.8 % 40.1-51.0 MEAN CORPUSCULAR VOLUME (BEAKER) (test mdns=521) 92.1 fL 79.0-92.2 MEAN CORPUSCULAR HEMOGLOBIN (BEAKER) (test 31.1 pg 25.7-32.2 kjca=638) MEAN CORPUSCULAR HEMOGLOBIN CONC (BEAKER) (test 33.7 GM/DL 32.3-36.5 zols=487) RED CELL DISTRIBUTION WIDTH (BEAKER) (test 14.7 % 11.6-14.4 bqbf=615) PLATELET COUNT (BEAKER) (test gbdn=983) 42 K/CU MM 150-450 MEAN PLATELET VOLUME (BEAKER) (test gcoi=074) 9.8 fL 9.4-12.4 NUCLEATED RED BLOOD CELLS (BEAKER) (test 0 /100 WBC 0-0 qkou=331) NEUTROPHILS RELATIVE PERCENT (BEAKER) (test 59 % cpld=932) LYMPHOCYTES RELATIVE PERCENT (BEAKER) (test 15 % mzwf=382) MONOCYTES RELATIVE PERCENT (BEAKER) (test 20 % nsas=380) EOSINOPHILS RELATIVE PERCENT (BEAKER) (test 5 % upeq=460) BASOPHILS RELATIVE PERCENT (BEAKER) (test 1 % fcho=256) NEUTROPHILS ABSOLUTE COUNT (BEAKER) (test 2.37 K/ L 1.78-5.38 bwmo=943) LYMPHOCYTES ABSOLUTE COUNT (BEAKER) (test 0.58 K/ L 1.32-3.57 yvzt=145) MONOCYTES ABSOLUTE COUNT (BEAKER) (test rbgh=437) 0.78 K/ L 0.30-0.82 EOSINOPHILS ABSOLUTE COUNT (BEAKER) (test 0.21 K/ L 0.04-0.54 yras=785) BASOPHILS ABSOLUTE COUNT (BEAKER) (test zcnp=753) 0.02 K/ L 0.01-0.08 IMMATURE GRANULOCYTES-RELATIVE PERCENT (BEAKER) 1 % 0-1 (test vdpb=0258) PROTHROMBIN [id number] 05:26:00 Test Item Value Reference Range Comments PROTIME (BEAKER) (test cdob=433) 23.3 seconds 11.7-14.7 INR (BEAKER) (test vzai=856) 2.1 <=5.9 RECOMMENDED COUMADIN/WARFARIN INR THERAPY RANGESSTANDARD DOSE: 2.0 - 3.0 Includes: PROPHYLAXIS forvenous thrombosis, systemic embolization; TREATMENT for venous thrombosis and/or pulmonary embolus.HIGH RISK: Target INR is 2.5-3.5 for patients with mechanical heart valves.CALCIUM, [id number] 05:21:00 Test Item Value Reference Range Comments CALCIUM IONIZED (BEAKER) (test idsw=575) 1.11 mmol/L 1.12-1.27 PH, BLOOD (BEAKER) (test nvjk=3276) 7.40 POCT-GLUCOSE [id number] 21:47:00 Test Item Value Reference Range Comments POC-GLUCOSE METER (BEAKER) 129 mg/dL 70-110 TESTED AT [address] (test pzlf=3839) [facility] [address] RAD, CHEST, 1 VIEW, NON [id number] 17:18:00Reason for exam:->sobFINAL REPORT Comparison: 08/26/2018 TECHNIQUE: Single view of the chest FINDINGS: Lung volumes are low. Bibasilar densities may represent atelectasis. Otherwise lungs are clear. Cardiac silhouette is within normal limits. Soft tissues and bones are unremarkable. Signed: Rick Guerra MDReport Verified Date/Time: 09/02/2018 17:18:49 Reading Location: [facility] Mammo Reading Room CBC W/ PLT COUNT & AUTO [id number] 17:16:00 Test Item Value Reference Range Comments WHITE BLOOD CELL COUNT (BEAKER) (test jbei=397) 3.8 K/ L 3.5-10.5 RED BLOOD CELL COUNT (BEAKER) (test moak=910) 2.37 M/ L 4.63-6.08 HEMOGLOBIN (BEAKER) (test ydul=937) 7.4 GM/DL 13.7-17.5 HEMATOCRIT (BEAKER) (test sraw=938) 21.8 % 40.1-51.0 MEAN CORPUSCULAR VOLUME (BEAKER) (test enxn=374) 92.0 fL 79.0-92.2 MEAN CORPUSCULAR HEMOGLOBIN (BEAKER) (test 31.2 pg 25.7-32.2 kcpc=195) MEAN CORPUSCULAR HEMOGLOBIN CONC (BEAKER) (test 33.9 GM/DL 32.3-36.5 afzq=000) RED CELL DISTRIBUTION WIDTH (BEAKER) (test 14.9 % 11.6-14.4 dnge=885) PLATELET COUNT (BEAKER) (test xqrs=889) 41 K/CU MM 150-450 MEAN PLATELET VOLUME (BEAKER) (test btpo=737) 8.8 fL 9.4-12.4 NUCLEATED RED BLOOD CELLS (BEAKER) (test 0 /100 WBC 0-0 zjyh=764) NEUTROPHILS RELATIVE PERCENT (BEAKER) (test 62 % lqfw=862) LYMPHOCYTES RELATIVE PERCENT (BEAKER) (test 14 % hvbx=891) MONOCYTES RELATIVE PERCENT (BEAKER) (test 18 % zcws=904) EOSINOPHILS RELATIVE PERCENT (BEAKER) (test 4 % ajdd=225) BASOPHILS RELATIVE PERCENT (BEAKER) (test 0 % caqs=619) NEUTROPHILS ABSOLUTE COUNT (BEAKER) (test 2.39 K/ L 1.78-5.38 ycmj=578) LYMPHOCYTES ABSOLUTE COUNT (BEAKER) (test 0.55 K/ L 1.32-3.57 mynr=390) MONOCYTES ABSOLUTE COUNT (BEAKER) (test pbof=729) 0.69 K/ L 0.30-0.82 EOSINOPHILS ABSOLUTE COUNT (BEAKER) (test 0.17 K/ L 0.04-0.54 zkoo=314) BASOPHILS ABSOLUTE COUNT (BEAKER) (test cqsr=233) 0.01 K/ L 0.01-0.08 IMMATURE GRANULOCYTES-RELATIVE PERCENT (BEAKER) 1 % 0-1 (test wfpk=6028) POCT-BLOOD GASES, [id number] 16:58:00 Test Item Value Reference Range Comments TEMP, CELSIUS-POC (BEAKER) 37.0 (test xnok=9430) FIO2-POC (BEAKER) (test TESTED AT [facility] [address] [place] gxdm=9132) [facility] [address] PH, ARTERIAL-POC (BEAKER) 7.412 7.350-7.450 (test xdse=5933) PCO2, ARTERIAL-POC (BEAKER) 35.5 mm Hg 35.0-45.0 (test vcdr=9654) PO2, ARTERIAL-POC (BEAKER) 69.0 mm Hg 80.0-90.0 (test zsdl=2211) SO2, ARTERIAL-POC (BEAKER) 94.0 % 96.0-97.0 (test vyky=3460) HCO3, ARTERIAL-POC (BEAKER) 22.6 meq/L 21.0-29.0 (test zxmo=2984) BASE EXCESS, ARTERIAL-POC -2.0 meq/L -2.0-3.0 (BEAKER) (test oxhc=7947) [id number] 16:58:00 Test Item Value Reference Range Comments POC-SODIUM (BEAKER) (test 125 meq/L 135-148 TESTED AT [address] ewqm=6305) [place] [address] [id number] 16:58:00 Test Item Value Reference Range Comments POC-POTASSIUM (BEAKER) (test 4.2 meq/L 3.6-5.5 TESTED AT [address] hngi=3978) [place] [address] [id number] 16:58:00 Test Item Value Reference Range Comments POC-GLUCOSE (BEAKER) (test 128 mg/dL 70-110 TESTED AT [address] wgma=8068) [place] [address] POCT-CALCIUM [id number] 16:58:00 Test Item Value Reference Range Comments POC-CALCIUM IONIZED (BEAKER) 1.24 mmol/L 1.12-1.27 TESTED AT [address] (test ddlh=1424) [place] [address] [id number] 16:58:00 Test Item Value Reference Range Comments POC-HEMATOCRIT (BEAKER) (test 21 % 40-50 TESTED AT [address] aqmm=8989) [place] [address] [id number] 16:58:00 Test Item Value Reference Range Comments POC-HEMOGLOBIN (BEAKER) 7.1 g/dL 13.0-16.8 TESTED AT [address] (test qlej=1751) [facility] [id number] AT [address] [address] POCT-LACTIC ACID, [id number] 16:58:00 Test Item Value Reference Range Comments POC-LACTIC ACID, ARTERIAL 1.0 mmol/L 0.4-1.3 TESTED AT [address] (BEAKER) (test ovvs=7612) [facility] [address] POCT-GLUCOSE [id number] 11:43:00 Test Item Value Reference Range Comments POC-GLUCOSE METER (BEAKER) 169 mg/dL 70-110 TESTED AT [address] (test hdvi=4123) [facility] [address] POCT-GLUCOSE [id number] 08:23:00 Test Item Value Reference Range Comments POC-GLUCOSE METER (BEAKER) 128 mg/dL 70-110 TESTED AT [address] (test qqxg=1207) [place] [address] [id number] 05:16:00 Test Item Value Reference Range Comments PHOSPHORUS (BEAKER) (test bbbe=836) 3.8 mg/dL 2.3-4.7 [id number] 05:16:00 Test Item Value Reference Range Comments MAGNESIUM (BEAKER) (test cbql=576) 2.0 mg/dL 1.6-2.6 COMPREHENSIVE METABOLIC [id number] 05:16:00 Test Item Value Reference Range Comments TOTAL PROTEIN (BEAKER) 5.0 gm/dL 6.0-8.3 (test dovk=487) ALBUMIN (BEAKER) (test 3.5 g/dL 3.5-5.0 yure=8403) ALKALINE PHOSPHATASE 124 U/L 40-150 (BEAKER) (test zagy=087) BILIRUBIN TOTAL (BEAKER) 2.2 mg/dL 0.2-1.2 (test gyae=453) SODIUM (BEAKER) (test 125 meq/L 136-145 kxcl=358) POTASSIUM (BEAKER) (test 4.4 meq/L 3.5-5.1 grtn=392) CHLORIDE (BEAKER) (test 96 meq/L 98-107 ltpv=750) CO2 (BEAKER) (test 23 meq/L 22-29 xdzl=490) BLOOD UREA NITROGEN 27 mg/dL 7-21 (BEAKER) (test qlgw=888) CREATININE (BEAKER) (test 1.74 mg/dL 0.57-1.25 dzuc=305) GLUCOSE RANDOM (BEAKER) 112 mg/dL 70-105 (test ssga=890) CALCIUM (BEAKER) (test 8.8 mg/dL 8.4-10.2 rwed=772) AST (SGOT) (BEAKER) (test 17 U/L 5-34 ktkv=619) ALT (SGPT) (BEAKER) (test 7 U/L 6-55 upgd=621) EGFR (BEAKER) (test 41 mL/min/1.73 sq m ESTIMATED GFR IS NOT ifzm=0827) ACCURATE CREATININE CLEARANCE IN PREDICTING GLOMERULAR FILTRATION RATE. ESTIMATED GFR IS NOT APPLICABLE FOR DIALYSIS PATIENTS. CALCIUM, [id number] 05:13:00 Test Item Value Reference Range Comments CALCIUM IONIZED (BEAKER) (test mpmy=493) 1.10 mmol/L 1.12-1.27 PH, BLOOD (BEAKER) (test jszt=5326) 7.44 CBC W/PLT COUNT & AUTO [id number] 05:02:00 Test Item Value Reference Range Comments WHITE BLOOD CELL COUNT (BEAKER) (test bthh=802) 3.2 K/ L 3.5-10.5 RED BLOOD CELL COUNT (BEAKER) (test unoy=525) 2.23 M/ L 4.63-6.08 HEMOGLOBIN (BEAKER) (test nxrv=014) 6.9 GM/DL 13.7-17.5 HEMATOCRIT (BEAKER) (test ksmz=959) 20.8 % 40.1-51.0 MEAN CORPUSCULAR VOLUME (BEAKER) (test jzbv=938) 93.3 fL 79.0-92.2 MEAN CORPUSCULAR HEMOGLOBIN (BEAKER) (test 30.9 pg 25.7-32.2 qfxf=060) MEAN CORPUSCULAR HEMOGLOBIN CONC (BEAKER) (test 33.2 GM/DL 32.3-36.5 szvb=227) RED CELL DISTRIBUTION WIDTH (BEAKER) (test 14.6 % 11.6-14.4 lwjg=118) PLATELET COUNT (BEAKER) (test ldnm=633) 43 K/CU MM 150-450 MEAN PLATELET VOLUME (BEAKER) (test voev=976) 9.3 fL 9.4-12.4 NUCLEATED RED BLOOD CELLS (BEAKER) (test 0 /100 WBC 0-0 nxyr=206) NEUTROPHILS RELATIVE PERCENT (BEAKER) (test 58 % gwnj=308) LYMPHOCYTES RELATIVE PERCENT (BEAKER) (test 17 % bpyl=655) MONOCYTES RELATIVE PERCENT (BEAKER) (test 18 % nvvc=863) EOSINOPHILS RELATIVE PERCENT (BEAKER) (test 5 % gdss=194) BASOPHILS RELATIVE PERCENT (BEAKER) (test 1 % ssxo=649) NEUTROPHILS ABSOLUTE COUNT (BEAKER) (test 1.84 K/ L 1.78-5.38 duvq=090) LYMPHOCYTES ABSOLUTE COUNT (BEAKER) (test 0.54 K/ L 1.32-3.57 tlmq=511) MONOCYTES ABSOLUTE COUNT (BEAKER) (test qfrf=783) 0.56 K/ L 0.30-0.82 EOSINOPHILS ABSOLUTE COUNT (BEAKER) (test 0.15 K/ L 0.04-0.54 gakf=153) BASOPHILS ABSOLUTE COUNT (BEAKER) (test kzcp=508) 0.02 K/ L 0.01-0.08 IMMATURE GRANULOCYTES-RELATIVE PERCENT (BEAKER) 1 % 0-1 (test vcdg=6558) PROTHROMBIN [id number] 05:00:00 Test Item Value Reference Range Comments PROTIME (BEAKER) (test aaiu=565) 22.7 seconds 11.7-14.7 INR (BEAKER) (test uyjn=951) 2.0 <=5.9 RECOMMENDED COUMADIN/WARFARIN INR THERAPY RANGESSTANDARD DOSE: 2.0 - 3.0 Includes: PROPHYLAXIS forvenous thrombosis, systemic embolization; TREATMENT for venous thrombosis and/or pulmonary embolus.HIGH RISK: Target INR is 2.5-3.5 for patients with mechanical heart valves.POCT-GLUCOSE [id number] 22:18:00 Test Item Value Reference Range Comments POC-GLUCOSE METER (BEAKER) 194 mg/dL 70-110 TESTED AT [address] (test uimm=8810) [facility] [address] POCT-GLUCOSE [id number] 17:33:00 Test Item Value Reference Range Comments POC-GLUCOSE METER (BEAKER) 160 mg/dL 70-110 TESTED AT [address] (test vsua=0031) [facility] [address] POCT-GLUCOSE [id number] 11:56:00 Test Item Value Reference Range Comments POC-GLUCOSE METER (BEAKER) 151 mg/dL 70-110 TESTED AT [facility] [address], [place] (test hllm=7387) [facility] [address] URINALYSIS W/ [id number] 09:52:00 Test Item Value Reference Range Comments COLOR (BEAKER) (test jinw=338) Yellow CLARITY (BEAKER) (test xxhb=447) Clear SPECIFIC GRAVITY UA (BEAKER) (test 1.014 1.001-1.035 apnc=568) PH UA (BEAKER) (test zcct=177) 5.5 5.0-8.0 PROTEIN UA (BEAKER) (test zjxu=227) Negative Negative GLUCOSE UA (BEAKER) (test vsks=638) Negative Negative KETONES UA (BEAKER) (test ezuw=006) Negative Negative BILIRUBIN UA (BEAKER) (test ytuc=482) Negative Negative BLOOD UA (BEAKER) (test uqvf=083) Negative Negative NITRITE UA (BEAKER) (test ezao=602) Negative Negative LEUKOCYTE ESTERASE UA (BEAKER) (test Negative Negative uiqa=302) UROBILINOGEN UA (BEAKER) (test tjli=012) 0.2 mg/dL 0.2-1.0 RBC UA (BEAKER) (test mvjx=873) 1 /HPF WBC UA (BEAKER) (test muom=272) 4 /HPF BACTERIA (BEAKER) (test szbl=177) Rare MUCUS (BEAKER) (test ncls=8597) Rare HYALINE CASTS (BEAKER) (test woai=200) 19 /LPF YEAST (BEAKER) (test gnna=6663) Rare SOURCE(BEAKER) (test atso=1186) Urine, Clean Catch SODIUM, RANDOM [id number] 09:09:00 Test Item Value Reference Range Comments SODIUM URINE (BEAKER) (test ikeq=751) < meq/L Reference Range: No NormalsCREATININE, RANDOM [id number] 09:04:00 Test Item Value Reference Range Comments CREATININE URINE (BEAKER) (test mswp=453) 149.6 mg/dL Reference Range: No NormalsPOCT-GLUCOSE [id number] 08:12:00 Test Item Value Reference Range Comments POC-GLUCOSE METER (BEAKER) 106 mg/dL 70-110 TESTED AT [facility] [address] (test rgkm=7611) [place] [address] CBC W/PLT COUNT & AUTO [id number] 06:56:00 Test Item Value Reference Range Comments WHITE BLOOD CELL COUNT (BEAKER) (test lvng=708) 4.5 K/ L 3.5-10.5 RED BLOOD CELL COUNT (BEAKER) (test zlws=123) 2.22 M/ L 4.63-6.08 HEMOGLOBIN (BEAKER) (test nypq=285) 7.0 GM/DL 13.7-17.5 HEMATOCRIT (BEAKER) (test orya=374) 20.6 % 40.1-51.0 MEAN CORPUSCULAR VOLUME (BEAKER) (test rkeh=643) 92.8 fL 79.0-92.2 MEAN CORPUSCULAR HEMOGLOBIN (BEAKER) (test 31.5 pg 25.7-32.2 dkua=376) MEAN CORPUSCULAR HEMOGLOBIN CONC (BEAKER) (test 34.0 GM/DL 32.3-36.5 sroe=588) RED CELL DISTRIBUTION WIDTH (BEAKER) (test 14.7 % 11.6-14.4 fjvi=865) PLATELET COUNT (BEAKER) (test qyyp=326) 44 K/CU MM 150-450 MEAN PLATELET VOLUME (BEAKER) (test fusl=876) 9.0 fL 9.4-12.4 NUCLEATED RED BLOOD CELLS (BEAKER) (test 0 /100 WBC 0-0 cllk=510) NEUTROPHILS RELATIVE PERCENT (BEAKER) (test 69 % skzv=812) LYMPHOCYTES RELATIVE PERCENT (BEAKER) (test 12 % ofdl=107) MONOCYTES RELATIVE PERCENT (BEAKER) (test 14 % jrri=265) EOSINOPHILS RELATIVE PERCENT (BEAKER) (test 4 % wsyb=048) BASOPHILS RELATIVE PERCENT (BEAKER) (test 0 % hzzg=318) NEUTROPHILS ABSOLUTE COUNT (BEAKER) (test 3.12 K/ L 1.78-5.38 adcy=191) LYMPHOCYTES ABSOLUTE COUNT (BEAKER) (test 0.55 K/ L 1.32-3.57 vqnw=957) MONOCYTES ABSOLUTE COUNT (BEAKER) (test yxiz=821) 0.62 K/ L 0.30-0.82 EOSINOPHILS ABSOLUTE COUNT (BEAKER) (test 0.18 K/ L 0.04-0.54 zrwo=995) BASOPHILS ABSOLUTE COUNT (BEAKER) (test eovq=656) 0.00 K/ L 0.01-0.08 IMMATURE GRANULOCYTES-RELATIVE PERCENT (BEAKER) 1 % 0-1 (test qcot=0738) [id number] 06:41:00 Test Item Value Reference Range Comments PHOSPHORUS (BEAKER) (test tpjd=041) 2.7 mg/dL 2.3-4.7 [id number] 06:41:00 Test Item Value Reference Range Comments MAGNESIUM (BEAKER) (test vrvo=012) 2.0 mg/dL 1.6-2.6 COMPREHENSIVE METABOLIC [id number] 06:41:00 Test Item Value Reference Range Comments TOTAL PROTEIN (BEAKER) 4.9 gm/dL 6.0-8.3 (test wxzv=663) ALBUMIN (BEAKER) (test 3.1 g/dL 3.5-5.0 yxdi=5403) ALKALINE PHOSPHATASE 148 U/L 40-150 (BEAKER) (test qeiw=692) BILIRUBIN TOTAL (BEAKER) 1.9 mg/dL 0.2-1.2 (test goau=148) SODIUM (BEAKER) (test 123 meq/L 136-145 zqfg=284) POTASSIUM (BEAKER) (test 3.9 meq/L 3.5-5.1 ujsc=617) CHLORIDE (BEAKER) (test 94 meq/L 98-107 qrlg=534) CO2 (BEAKER) (test 22 meq/L 22-29 gjej=390) BLOOD UREA NITROGEN 24 mg/dL 7-21 (BEAKER) (test jziy=584) CREATININE (BEAKER) (test 1.55 mg/dL 0.57-1.25 pfis=442) GLUCOSE RANDOM (BEAKER) 95 mg/dL 70-105 (test slww=741) CALCIUM (BEAKER) (test 8.5 mg/dL 8.4-10.2 nudb=510) AST (SGOT) (BEAKER) (test 18 U/L 5-34 mscg=588) ALT (SGPT) (BEAKER) (test 10 U/L 6-55 kjla=141) EGFR (BEAKER) (test 47 mL/min/1.73 sq m ESTIMATED GFR IS NOT vqta=3866) ACCURATE CREATININE CLEARANCE IN PREDICTING GLOMERULAR FILTRATION RATE. ESTIMATED GFR IS NOT APPLICABLE FOR DIALYSIS PATIENTS. BILIRUBIN, [id number] 06:41:00 Test Item Value Reference Range Comments BILIRUBIN DIRECT (BEAKER) (test ncky=910) 1.3 mg/dL 0.1-0.5 PROTHROMBIN [id number] 06:26:00 Test Item Value Reference Range Comments PROTIME (BEAKER) (test ykob=444) 23.3 seconds 11.7-14.7 INR (BEAKER) (test cihj=900) 2.1 <=5.9 RECOMMENDED COUMADIN/WARFARIN INR THERAPY RANGESSTANDARD DOSE: 2.0 - 3.0 Includes: PROPHYLAXIS forvenous thrombosis, systemic embolization; TREATMENT for venous thrombosis and/or pulmonary embolus.HIGH RISK: Target INR is 2.5-3.5 for patients with mechanical heart valves.POCT-GLUCOSE [id number] 22:17:00 Test Item Value Reference Range Comments POC-GLUCOSE METER (BEAKER) 136 mg/dL 70-110 TESTED AT [address] (test xeme=1739) [place] [address] POCT-GLUCOSE [id number] 18:08:00 Test Item Value Reference Range Comments POC-GLUCOSE METER (BEAKER) 126 mg/dL 70-110 TESTED AT [address] (test rewj=7734) [place] [address] U/S, [id number] 17:47:00Reason for exam:->ascitesFINAL REPORT Indication: Ascites. Technique: Ultrasound guided paracentesis. Findings:Preliminary ultrasound confirms ascites. A safe window was identified in the left lower quadrant. The procedure was explained to the patient and informed consent was signed. The skin was markedand prepped in standard sterile fashion. Lidocaine was used for local anesthesia. A 5 Portuguese needle catheter system was advanced into the peritoneal space. 5500 cc slightly cloudy yellow fluid was taken off. Patient tolerated the procedure well. Impression: Ultrasound guided paracentesis. Signed: Aristeo Xiong [facility] CENTEReport Verified Date/Time: 08/31/2018 17:47:54 Reading Location: [address] Ultrasound Reading Room POCT-GLUCOSE [id number] 11:52:00 Test Item Value Reference Range Comments POC-GLUCOSE METER (BEAKER) 151 mg/dL 70-110 TESTED AT [place] [id number] [place] (test rbqz=3418) [facility] [address] POCT-GLUCOSE [id number] 08:19:00 Test Item Value Reference Range Comments POC-GLUCOSE METER (BEAKER) 129 mg/dL 70-110 TESTED AT [address] (test froc=7461) [facility] [address] [id number] 05:12:00 Test Item Value Reference Range Comments PHOSPHORUS (BEAKER) (test yuoj=174) 2.9 mg/dL 2.3-4.7 [id number] 05:12:00 Test Item Value Reference Range Comments MAGNESIUM (BEAKER) (test sasd=381) 2.0 mg/dL 1.6-2.6 COMPREHENSIVE METABOLIC [id number] 05:12:00 Test Item Value Reference Range Comments TOTAL PROTEIN (BEAKER) 5.4 gm/dL 6.0-8.3 (test qwew=853) ALBUMIN (BEAKER) (test 3.2 g/dL 3.5-5.0 zosp=5466) ALKALINE PHOSPHATASE 159 U/L 40-150 (BEAKER) (test vmvo=430) BILIRUBIN TOTAL (BEAKER) 1.8 mg/dL 0.2-1.2 (test bewl=021) SODIUM (BEAKER) (test 125 meq/L 136-145 htdv=383) POTASSIUM (BEAKER) (test 4.3 meq/L 3.5-5.1 gyar=315) CHLORIDE (BEAKER) (test 97 meq/L 98-107 tavn=896) CO2 (BEAKER) (test 22 meq/L 22-29 xlat=153) BLOOD UREA NITROGEN 21 mg/dL 7-21 (BEAKER) (test nkpi=869) CREATININE (BEAKER) (test 1.34 mg/dL 0.57-1.25 zgmr=354) GLUCOSE RANDOM (BEAKER) 113 mg/dL 70-105 (test dmzc=626) CALCIUM (BEAKER) (test 8.8 mg/dL 8.4-10.2 zeut=389) AST (SGOT) (BEAKER) (test 22 U/L 5-34 focr=902) ALT (SGPT) (BEAKER) (test 11 U/L 6-55 cxer=760) EGFR (BEAKER) (test 56 mL/min/1.73 sq m ESTIMATED GFR IS NOT mzzh=4665) ACCURATE CREATININE CLEARANCE IN PREDICTING GLOMERULAR FILTRATION RATE. ESTIMATED GFR IS NOT APPLICABLE FOR DIALYSIS PATIENTS. BILIRUBIN, [id number] 05:12:00 Test Item Value Reference Range Comments BILIRUBIN DIRECT (BEAKER) (test djdj=177) 1.2 mg/dL 0.1-0.5 PROTHROMBIN [id number] 04:48:00 Test Item Value Reference Range Comments PROTIME (BEAKER) (test kegr=424) 22.3 seconds 11.7-14.7 INR (BEAKER) (test xzpr=174) 2.0 <=5.9 RECOMMENDED COUMADIN/WARFARIN INR THERAPY RANGESSTANDARD DOSE: 2.0 - 3.0 Includes: PROPHYLAXIS forvenous thrombosis, systemic embolization; TREATMENT for venous thrombosis and/or pulmonary embolus.HIGH RISK: Target INR is 2.5-3.5 for patients with mechanical heart valves.CBC W/PLT COUNT & AUTO [id number] 04:33:00 Test Item Value Reference Range Comments WHITE BLOOD CELL COUNT (BEAKER) (test nzgv=060) 5.5 K/ L 3.5-10.5 RED BLOOD CELL COUNT (BEAKER) (test qamt=088) 2.58 M/ L 4.63-6.08 HEMOGLOBIN (BEAKER) (test tvow=877) 7.9 GM/DL 13.7-17.5 HEMATOCRIT (BEAKER) (test oxhq=596) 24.3 % 40.1-51.0 MEAN CORPUSCULAR VOLUME (BEAKER) (test xvrp=817) 94.2 fL 79.0-92.2 MEAN CORPUSCULAR HEMOGLOBIN (BEAKER) (test 30.6 pg 25.7-32.2 rbeg=167) MEAN CORPUSCULAR HEMOGLOBIN CONC (BEAKER) (test 32.5 GM/DL 32.3-36.5 xccd=719) RED CELL DISTRIBUTION WIDTH (BEAKER) (test 15.0 % 11.6-14.4 ehhs=229) PLATELET COUNT (BEAKER) (test uxch=650) 57 K/CU MM 150-450 MEAN PLATELET VOLUME (BEAKER) (test obux=620) 9.2 fL 9.4-12.4 NUCLEATED RED BLOOD CELLS (BEAKER) (test 0 /100 WBC 0-0 ntlc=121) NEUTROPHILS RELATIVE PERCENT (BEAKER) (test 70 % chpb=115) LYMPHOCYTES RELATIVE PERCENT (BEAKER) (test 12 % liit=321) MONOCYTES RELATIVE PERCENT (BEAKER) (test 14 % uvpd=611) EOSINOPHILS RELATIVE PERCENT (BEAKER) (test 4 % nhti=744) BASOPHILS RELATIVE PERCENT (BEAKER) (test 0 % ypyr=199) NEUTROPHILS ABSOLUTE COUNT (BEAKER) (test 3.85 K/ L 1.78-5.38 rmqe=214) LYMPHOCYTES ABSOLUTE COUNT (BEAKER) (test 0.67 K/ L 1.32-3.57 dilf=114) MONOCYTES ABSOLUTE COUNT (BEAKER) (test tdyg=289) 0.75 K/ L 0.30-0.82 EOSINOPHILS ABSOLUTE COUNT (BEAKER) (test 0.22 K/ L 0.04-0.54 civh=002) BASOPHILS ABSOLUTE COUNT (BEAKER) (test khru=413) 0.01 K/ L 0.01-0.08 IMMATURE GRANULOCYTES-RELATIVE PERCENT (BEAKER) 1 % 0-1 (test nzrn=1882) BLOOD [id number] 23:01:00 Test Item Value Reference Range Comments CULTURE (BEAKER) (test gclr=9838) No growth in 5 days POCT-GLUCOSE [id number] 22:15:00 Test Item Value Reference Range Comments POC-GLUCOSE METER (BEAKER) 133 mg/dL 70-110 TESTED AT [address] (test ixbl=3510) [facility] [address] POCT-GLUCOSE [id number] 17:42:00 Test Item Value Reference Range Comments POC-GLUCOSE METER (BEAKER) 139 mg/dL 70-110 TESTED AT [address] (test wcza=0160) [place] [id number] POCT-GLUCOSE [id number] 12:02:00 Test Item Value Reference Range Comments POC-GLUCOSE METER (BEAKER) 152 mg/dL 70-110 TESTED AT [address] (test cbrf=2285) [facility] [address] POCT-GLUCOSE [id number] 09:04:00 Test Item Value Reference Range Comments POC-GLUCOSE METER (BEAKER) 130 mg/dL 70-110 TESTED AT [facility] [address] (test izxo=9524) [place] [address] CALCIUM, [id number] 07:27:00 Test Item Value Reference Range Comments CALCIUM IONIZED (BEAKER) (test hxib=371) 1.10 mmol/L 1.12-1.27 PH, BLOOD (BEAKER) (test wxpp=4569) 7.42 [id number] 06:46:00 Test Item Value Reference Range Comments PHOSPHORUS (BEAKER) (test bpns=446) 3.0 mg/dL 2.3-4.7 [id number] 06:46:00 Test Item Value Reference Range Comments MAGNESIUM (BEAKER) (test hlzo=218) 2.0 mg/dL 1.6-2.6 COMPREHENSIVE METABOLIC [id number] 06:46:00 Test Item Value Reference Range Comments TOTAL PROTEIN (BEAKER) 4.9 gm/dL 6.0-8.3 (test bwqc=224) ALBUMIN (BEAKER) (test 3.0 g/dL 3.5-5.0 dwgl=7386) ALKALINE PHOSPHATASE 145 U/L 40-150 (BEAKER) (test vbkv=332) BILIRUBIN TOTAL (BEAKER) 1.9 mg/dL 0.2-1.2 (test etci=981) SODIUM (BEAKER) (test 127 meq/L 136-145 plcl=032) POTASSIUM (BEAKER) (test 3.7 meq/L 3.5-5.1 llfx=093) CHLORIDE (BEAKER) (test 99 meq/L 98-107 kdoe=181) CO2 (BEAKER) (test 21 meq/L 22-29 unlu=126) BLOOD UREA NITROGEN 20 mg/dL 7-21 (BEAKER) (test viqr=479) CREATININE (BEAKER) (test 1.21 mg/dL 0.57-1.25 hhoz=041) GLUCOSE RANDOM (BEAKER) 108 mg/dL 70-105 (test xzkd=819) CALCIUM (BEAKER) (test 8.9 mg/dL 8.4-10.2 xznx=377) AST (SGOT) (BEAKER) (test 22 U/L 5-34 gycc=341) ALT (SGPT) (BEAKER) (test 9 U/L 6-55 wekq=918) EGFR (BEAKER) (test 63 mL/min/1.73 sq m ESTIMATED GFR IS NOT pigb=2482) ACCURATE CREATININE CLEARANCE IN PREDICTING GLOMERULAR FILTRATION RATE. ESTIMATED GFR IS NOT APPLICABLE FOR DIALYSIS PATIENTS. BASIC METABOLIC [id number] 06:46:00 Test Item Value Reference Range Comments SODIUM (BEAKER) (test 127 meq/L 136-145 rudk=756) POTASSIUM (BEAKER) (test 3.7 meq/L 3.5-5.1 uvlk=446) CHLORIDE (BEAKER) (test 99 meq/L 98-107 ooqo=999) CO2 (BEAKER) (test 21 meq/L 22-29 ekcs=863) BLOOD UREA NITROGEN 20 mg/dL 7-21 (BEAKER) (test qlqj=770) CREATININE (BEAKER) (test 1.21 mg/dL 0.57-1.25 bgfy=377) GLUCOSE RANDOM (BEAKER) 108 mg/dL 70-105 (test fqkj=576) CALCIUM (BEAKER) (test 8.9 mg/dL 8.4-10.2 ksjn=864) EGFR (BEAKER) (test 63 mL/min/1.73 sq m ESTIMATED GFR IS NOT ffyr=7453) ACCURATE CREATININE CLEARANCE IN PREDICTING GLOMERULAR FILTRATION RATE. ESTIMATED GFR IS NOT APPLICABLE FOR DIALYSIS PATIENTS. BILIRUBIN, [id number] 06:46:00 Test Item Value Reference Range Comments BILIRUBIN DIRECT (BEAKER) (test ioty=549) 1.2 mg/dL 0.1-0.5 CBC W/PLT COUNT & AUTO [id number] 06:30:00 Test Item Value Reference Range Comments WHITE BLOOD CELL COUNT (BEAKER) (test fqug=144) 3.7 K/ L 3.5-10.5 RED BLOOD CELL COUNT (BEAKER) (test ubgi=247) 2.35 M/ L 4.63-6.08 HEMOGLOBIN (BEAKER) (test wqcj=247) 7.4 GM/DL 13.7-17.5 HEMATOCRIT (BEAKER) (test iyej=840) 22.1 % 40.1-51.0 MEAN CORPUSCULAR VOLUME (BEAKER) (test ngxs=131) 94.0 fL 79.0-92.2 MEAN CORPUSCULAR HEMOGLOBIN (BEAKER) (test 31.5 pg 25.7-32.2 lfoy=871) MEAN CORPUSCULAR HEMOGLOBIN CONC (BEAKER) (test 33.5 GM/DL 32.3-36.5 mrlg=591) RED CELL DISTRIBUTION WIDTH (BEAKER) (test 14.8 % 11.6-14.4 pvmj=631) PLATELET COUNT (BEAKER) (test scqy=887) 45 K/CU MM 150-450 MEAN PLATELET VOLUME (BEAKER) (test wczy=988) 8.8 fL 9.4-12.4 NUCLEATED RED BLOOD CELLS (BEAKER) (test 0 /100 WBC 0-0 ohuk=770) NEUTROPHILS RELATIVE PERCENT (BEAKER) (test 61 % lcil=704) LYMPHOCYTES RELATIVE PERCENT (BEAKER) (test 14 % sazp=422) MONOCYTES RELATIVE PERCENT (BEAKER) (test 18 % szbj=544) EOSINOPHILS RELATIVE PERCENT (BEAKER) (test 6 % vkla=367) BASOPHILS RELATIVE PERCENT (BEAKER) (test 0 % thuf=184) NEUTROPHILS ABSOLUTE COUNT (BEAKER) (test 2.25 K/ L 1.78-5.38 akad=919) LYMPHOCYTES ABSOLUTE COUNT (BEAKER) (test 0.53 K/ L 1.32-3.57 bzfi=441) MONOCYTES ABSOLUTE COUNT (BEAKER) (test idcn=042) 0.67 K/ L 0.30-0.82 EOSINOPHILS ABSOLUTE COUNT (BEAKER) (test 0.23 K/ L 0.04-0.54 pokw=522) BASOPHILS ABSOLUTE COUNT (BEAKER) (test muaj=511) 0.01 K/ L 0.01-0.08 IMMATURE GRANULOCYTES-RELATIVE PERCENT (BEAKER) 1 % 0-1 (test eqez=0519) PROTHROMBIN [id number] 06:07:00 Test Item Value Reference Range Comments PROTIME (BEAKER) (test wvxf=037) 21.4 seconds 11.7-14.7 INR (BEAKER) (test zwin=785) 1.9 <=5.9 RECOMMENDED COUMADIN/WARFARIN INR THERAPY RANGESSTANDARD DOSE: 2.0 - 3.0 Includes: PROPHYLAXIS forvenous thrombosis, systemic embolization; TREATMENT for venous thrombosis and/or pulmonary embolus.HIGH RISK: Target INR is 2.5-3.5 for patients with mechanical heart valves.POCT-GLUCOSE [id number] 23:37:00 Test Item Value Reference Range Comments POC-GLUCOSE METER (BEAKER) 154 mg/dL 70-110 TESTED AT [address] (test chdz=9850) [place] [address] BASIC METABOLIC [id number] 20:17:00 Test Item Value Reference Range Comments SODIUM (BEAKER) (test 125 meq/L 136-145 wjix=168) POTASSIUM (BEAKER) (test 4.0 meq/L 3.5-5.1 zqww=895) CHLORIDE (BEAKER) (test 94 meq/L 98-107 uwgl=861) CO2 (BEAKER) (test 25 meq/L 22-29 oxde=571) BLOOD UREA NITROGEN 20 mg/dL 7-21 (BEAKER) (test ysog=024) CREATININE (BEAKER) (test 1.34 mg/dL 0.57-1.25 jvct=417) GLUCOSE RANDOM (BEAKER) 115 mg/dL 70-105 (test qndm=742) CALCIUM (BEAKER) (test 8.9 mg/dL 8.4-10.2 tywb=087) EGFR (BEAKER) (test 56 mL/min/1.73 sq m ESTIMATED GFR IS NOT tobb=6235) ACCURATE CREATININE CLEARANCE IN PREDICTING GLOMERULAR FILTRATION RATE. ESTIMATED GFR IS NOT APPLICABLE FOR DIALYSIS PATIENTS. POCT-GLUCOSE [id number] 17:59:00 Test Item Value Reference Range Comments POC-GLUCOSE METER (BEAKER) 161 mg/dL 70-110 TESTED AT [address] (test dpay=3917) [place] [address] BODY FLUID CULTURE + GRAM [id number] 13:31:00 Test Item Value Reference Range Comments CULTURE (BEAKER) (test xorp=1779) No growth GRAM STAIN RESULT (BEAKER) (test No organisms seen uaba=3151) GRAM STAIN RESULT (BEAKER) (test No White blood cells seen zvyi=36498) POCT-GLUCOSE [id number] 12:31:00 Test Item Value Reference Range Comments POC-GLUCOSE METER (BEAKER) 114 mg/dL 70-110 TESTED AT [address] (test wrnt=0792) [place] [address] BASIC METABOLIC [id number] 11:33:00 Test Item Value Reference Range Comments SODIUM (BEAKER) (test 124 meq/L 136-145 ulno=310) POTASSIUM (BEAKER) (test 4.1 meq/L 3.5-5.1 oynf=233) CHLORIDE (BEAKER) (test 94 meq/L 98-107 rsgc=257) CO2 (BEAKER) (test 23 meq/L 22-29 mpzx=875) BLOOD UREA NITROGEN 20 mg/dL 7-21 (BEAKER) (test kvgr=219) CREATININE (BEAKER) (test 1.22 mg/dL 0.57-1.25 qxfi=268) GLUCOSE RANDOM (BEAKER) 94 mg/dL 70-105 (test afsa=557) CALCIUM (BEAKER) (test 8.8 mg/dL 8.4-10.2 uqrj=259) EGFR (BEAKER) (test 62 mL/min/1.73 sq m ESTIMATED GFR IS NOT qnct=4829) ACCURATE CREATININE CLEARANCE IN PREDICTING GLOMERULAR FILTRATION RATE. ESTIMATED GFR IS NOT APPLICABLE FOR DIALYSIS PATIENTS. [id number] 09:24:00 Test Item Value Reference Range Comments FERRITIN (BEAKER) (test kszk=071) 1685 ng/mL 5-275 POCT-GLUCOSE [id number] 07:59:00 Test Item Value Reference Range Comments POC-GLUCOSE METER (BEAKER) 225 mg/dL 70-110 TESTED AT [facility] [address] [place] (test zxaz=4089) [facility] [address] IRON, TIBC, % SAT. (WITHOUT FERRITIN)[id number] 07:54:00 Test Item Value Reference Range Comments IRON (BEAKER) (test vnlf=410) 98 ug/dL 40-160 TOTAL IRON BINDING CAPACITY (BEAKER) (test 90 ug/dL 250-450 xkei=126) IRON % SATURATION (2) (BEAKER) (test enyi=9984) 109 % 20-55 CALCIUM, [id number] 07:13:00 Test Item Value Reference Range Comments CALCIUM IONIZED (BEAKER) (test klcc=818) 1.10 mmol/L 1.12-1.27 PH, BLOOD (BEAKER) (test jjzm=4829) 7.37 [id number] 06:32:00 Test Item Value Reference Range Comments PHOSPHORUS (BEAKER) (test uvph=633) 2.6 mg/dL 2.3-4.7 [id number] 06:32:00 Test Item Value Reference Range Comments MAGNESIUM (BEAKER) (test eyaj=203) 1.8 mg/dL 1.6-2.6 COMPREHENSIVE METABOLIC [id number] 06:32:00 Test Item Value Reference Range Comments TOTAL PROTEIN (BEAKER) 5.0 gm/dL 6.0-8.3 (test lcej=082) ALBUMIN (BEAKER) (test 3.2 g/dL 3.5-5.0 tbov=6827) ALKALINE PHOSPHATASE 138 U/L 40-150 (BEAKER) (test cjmw=941) BILIRUBIN TOTAL (BEAKER) 2.1 mg/dL 0.2-1.2 (test fpuz=116) SODIUM (BEAKER) (test 126 meq/L 136-145 qzsl=098) POTASSIUM (BEAKER) (test 4.0 meq/L 3.5-5.1 arqh=048) CHLORIDE (BEAKER) (test 95 meq/L 98-107 chdp=482) CO2 (BEAKER) (test 23 meq/L 22-29 ntzc=517) BLOOD UREA NITROGEN 21 mg/dL 7-21 (BEAKER) (test jrbo=926) CREATININE (BEAKER) (test 1.15 mg/dL 0.57-1.25 garm=491) GLUCOSE RANDOM (BEAKER) 110 mg/dL 70-105 (test utns=172) CALCIUM (BEAKER) (test 8.8 mg/dL 8.4-10.2 vawk=647) AST (SGOT) (BEAKER) (test 22 U/L 5-34 msuv=130) ALT (SGPT) (BEAKER) (test 11 U/L 6-55 vxbi=647) EGFR (BEAKER) (test 67 mL/min/1.73 sq m ESTIMATED GFR IS NOT lobm=6345) ACCURATE CREATININE CLEARANCE IN PREDICTING GLOMERULAR FILTRATION RATE. ESTIMATED GFR IS NOT APPLICABLE FOR DIALYSIS PATIENTS. BASIC METABOLIC [id number] 06:32:00 Test Item Value Reference Range Comments SODIUM (BEAKER) (test 126 meq/L 136-145 qktg=814) POTASSIUM (BEAKER) (test 4.0 meq/L 3.5-5.1 uftl=258) CHLORIDE (BEAKER) (test 95 meq/L 98-107 fjsf=453) CO2 (BEAKER) (test 23 meq/L 22-29 hite=033) BLOOD UREA NITROGEN 21 mg/dL 7-21 (BEAKER) (test fxde=547) CREATININE (BEAKER) (test 1.15 mg/dL 0.57-1.25 matu=123) GLUCOSE RANDOM (BEAKER) 110 mg/dL 70-105 (test oolq=950) CALCIUM (BEAKER) (test 8.8 mg/dL 8.4-10.2 lybx=366) EGFR (BEAKER) (test 67 mL/min/1.73 sq m ESTIMATED GFR IS NOT fzdw=5091) ACCURATE CREATININE CLEARANCE IN PREDICTING GLOMERULAR FILTRATION RATE. ESTIMATED GFR IS NOT APPLICABLE FOR DIALYSIS PATIENTS. BILIRUBIN, [id number] 06:32:00 Test Item Value Reference Range Comments BILIRUBIN DIRECT (BEAKER) (test oauc=657) 1.4 mg/dL 0.1-0.5 PROTHROMBIN [id number] 05:44:00 Test Item Value Reference Range Comments PROTIME (BEAKER) (test xtja=525) 20.9 seconds 11.7-14.7 INR (BEAKER) (test ovvu=613) 1.8 <=5.9 RECOMMENDED COUMADIN/WARFARIN INR THERAPY RANGESSTANDARD DOSE: 2.0 - 3.0 Includes: PROPHYLAXIS forvenous thrombosis, systemic embolization; TREATMENT for venous thrombosis and/or pulmonary embolus.HIGH RISK: Target INR is 2.5-3.5 for patients with mechanical heart valves.CBC W/PLT COUNT & AUTO [id number] 05:43:00 Test Item Value Reference Range Comments WHITE BLOOD CELL COUNT (BEAKER) (test vfjr=830) 4.0 K/ L 3.5-10.5 RED BLOOD CELL COUNT (BEAKER) (test demh=080) 2.30 M/ L 4.63-6.08 HEMOGLOBIN (BEAKER) (test qedq=454) 7.5 GM/DL 13.7-17.5 HEMATOCRIT (BEAKER) (test zdhd=307) 22.0 % 40.1-51.0 MEAN CORPUSCULAR VOLUME (BEAKER) (test fowm=011) 95.7 fL 79.0-92.2 MEAN CORPUSCULAR HEMOGLOBIN (BEAKER) (test 32.6 pg 25.7-32.2 anfy=196) MEAN CORPUSCULAR HEMOGLOBIN CONC (BEAKER) (test 34.1 GM/DL 32.3-36.5 ooij=516) RED CELL DISTRIBUTION WIDTH (BEAKER) (test 14.8 % 11.6-14.4 qnke=164) PLATELET COUNT (BEAKER) (test qdvk=061) 51 K/CU MM 150-450 MEAN PLATELET VOLUME (BEAKER) (test mpvy=209) 8.8 fL 9.4-12.4 NUCLEATED RED BLOOD CELLS (BEAKER) (test 0 /100 WBC 0-0 obod=313) NEUTROPHILS RELATIVE PERCENT (BEAKER) (test 61 % unag=528) LYMPHOCYTES RELATIVE PERCENT (BEAKER) (test 12 % xghu=170) MONOCYTES RELATIVE PERCENT (BEAKER) (test 19 % tsud=757) EOSINOPHILS RELATIVE PERCENT (BEAKER) (test 7 % cziv=289) BASOPHILS RELATIVE PERCENT (BEAKER) (test 0 % dncc=620) NEUTROPHILS ABSOLUTE COUNT (BEAKER) (test 2.43 K/ L 1.78-5.38 wcqa=728) LYMPHOCYTES ABSOLUTE COUNT (BEAKER) (test 0.49 K/ L 1.32-3.57 whpf=675) MONOCYTES ABSOLUTE COUNT (BEAKER) (test kiru=346) 0.75 K/ L 0.30-0.82 EOSINOPHILS ABSOLUTE COUNT (BEAKER) (test 0.29 K/ L 0.04-0.54 yuxg=299) BASOPHILS ABSOLUTE COUNT (BEAKER) (test mpdf=543) 0.00 K/ L 0.01-0.08 IMMATURE GRANULOCYTES-RELATIVE PERCENT (BEAKER) 1 % 0-1 (test omze=9451) POCT-GLUCOSE [id number] 22:23:00 Test Item Value Reference Range Comments POC-GLUCOSE METER (BEAKER) 166 mg/dL 70-110 TESTED AT [address] (test pbjw=5043) [facility] [id number] POCT-GLUCOSE [id number] 16:12:00 Test Item Value Reference Range Comments POC-GLUCOSE METER (BEAKER) 110 mg/dL 70-110 TESTED AT [address] (test yekf=4289) [facility] [id number] PTH, [id number] 15:57:00 Test Item Value Reference Range Comments PARATHYROID HORMONE INTACT (BEAKER) (test 26.2 pg/mL 8.5-72.5 qguv=177) GAMMA GLUTAMYL TRANSFERASE ([id number] 15:51:00 Test Item Value Reference Range Comments GAMMA GLUTAMYL TRANSFERASE (BEAKER) (test tqtx=590) 11 U/L 9-64 BASIC METABOLIC [id number] 15:49:00 Test Item Value Reference Range Comments SODIUM (BEAKER) (test 127 meq/L 136-145 egcq=576) POTASSIUM (BEAKER) (test 3.6 meq/L 3.5-5.1 uocd=433) CHLORIDE (BEAKER) (test 97 meq/L 98-107 jaad=134) CO2 (BEAKER) (test 23 meq/L 22-29 fwly=684) BLOOD UREA NITROGEN 20 mg/dL 7-21 (BEAKER) (test lszu=488) CREATININE (BEAKER) (test 1.19 mg/dL 0.57-1.25 xoch=957) GLUCOSE RANDOM (BEAKER) 123 mg/dL 70-105 (test tyon=331) CALCIUM (BEAKER) (test 8.6 mg/dL 8.4-10.2 xggc=561) EGFR (BEAKER) (test 64 mL/min/1.73 sq m ESTIMATED GFR IS NOT klyh=4907) ACCURATE CREATININE CLEARANCE IN PREDICTING GLOMERULAR FILTRATION RATE. ESTIMATED GFR IS NOT APPLICABLE FOR DIALYSIS PATIENTS. VITAMIN D, [id number] 15:24:00 Test Item Value Reference Range Comments VITAMIN D 25-OH (BEAKER) (test oljv=0894) 11.2 ng/mL 6.6-49.9 Effective 08/06/2017: Reference Range ChangeNew: 6.6-49.9 ng/mL Previous: 13.0 -47.8 ng/mLRecommended Vitamin D Target Range: 30.0-40.0 ng/mLPOCT-GLUCOSE [id number] 12:35:00 Test Item Value Reference Range Comments POC-GLUCOSE METER (BEAKER) 138 mg/dL 70-110 TESTED AT [facility] [address], [place] (test bfaj=9545) [facility] [address] BASIC METABOLIC [id number] 09:59:00 Test Item Value Reference Range Comments SODIUM (BEAKER) (test 130 meq/L 136-145 gsty=750) POTASSIUM (BEAKER) (test 4.1 meq/L 3.5-5.1 ernt=864) CHLORIDE (BEAKER) (test 99 meq/L 98-107 nhgd=843) CO2 (BEAKER) (test 24 meq/L 22-29 shsj=034) BLOOD UREA NITROGEN 22 mg/dL 7-21 (BEAKER) (test wwfb=067) CREATININE (BEAKER) (test 1.31 mg/dL 0.57-1.25 qdvl=929) GLUCOSE RANDOM (BEAKER) 121 mg/dL 70-105 (test kmdc=408) CALCIUM (BEAKER) (test 9.4 mg/dL 8.4-10.2 yves=478) EGFR (BEAKER) (test 57 mL/min/1.73 sq m ESTIMATED GFR IS NOT nxlb=7569) ACCURATE CREATININE CLEARANCE IN PREDICTING GLOMERULAR FILTRATION RATE. ESTIMATED GFR IS NOT APPLICABLE FOR DIALYSIS PATIENTS. POCT-GLUCOSE [id number] 08:17:00 Test Item Value Reference Range Comments POC-GLUCOSE METER (BEAKER) 131 mg/dL 70-110 TESTED AT [address] (test dyeb=5395) [facility] [address] CALCIUM, [id number] 06:01:00 Test Item Value Reference Range Comments CALCIUM IONIZED (BEAKER) (test cwlj=469) 1.06 mmol/L 1.12-1.27 PH, BLOOD (BEAKER) (test aqgb=6651) 7.42 [id number] 05:52:00 Test Item Value Reference Range Comments PHOSPHORUS (BEAKER) (test bzmi=001) 3.1 mg/dL 2.3-4.7 [id number] 05:52:00 Test Item Value Reference Range Comments MAGNESIUM (BEAKER) (test uqyj=909) 2.3 mg/dL 1.6-2.6 BASIC METABOLIC [id number] 05:52:00 Test Item Value Reference Range Comments SODIUM (BEAKER) (test 130 meq/L 136-145 aqri=190) POTASSIUM (BEAKER) (test 3.8 meq/L 3.5-5.1 ulnp=814) CHLORIDE (BEAKER) (test 98 meq/L 98-107 zdjf=131) CO2 (BEAKER) (test 22 meq/L 22-29 dlbi=485) BLOOD UREA NITROGEN 22 mg/dL 7-21 (BEAKER) (test giik=868) CREATININE (BEAKER) (test 1.37 mg/dL 0.57-1.25 ahgg=074) GLUCOSE RANDOM (BEAKER) 118 mg/dL 70-105 (test mqee=471) CALCIUM (BEAKER) (test 9.6 mg/dL 8.4-10.2 uqhh=516) EGFR (BEAKER) (test 54 mL/min/1.73 sq m ESTIMATED GFR IS NOT vixb=0100) ACCURATE CREATININE CLEARANCE IN PREDICTING GLOMERULAR FILTRATION RATE. ESTIMATED GFR IS NOT APPLICABLE FOR DIALYSIS PATIENTS. Specimen slightly ictericCOMPREHENSIVE METABOLIC [id number] 05:52:00 Test Item Value Reference Range Comments TOTAL PROTEIN (BEAKER) 5.6 gm/dL 6.0-8.3 (test rwaw=315) ALBUMIN (BEAKER) (test 3.6 g/dL 3.5-5.0 qurr=2703) ALKALINE PHOSPHATASE 146 U/L 40-150 (BEAKER) (test jbds=484) BILIRUBIN TOTAL (BEAKER) 2.5 mg/dL 0.2-1.2 (test csam=523) SODIUM (BEAKER) (test 130 meq/L 136-145 qwcb=182) POTASSIUM (BEAKER) (test 3.8 meq/L 3.5-5.1 sqwd=645) CHLORIDE (BEAKER) (test 98 meq/L 98-107 aofz=751) CO2 (BEAKER) (test 22 meq/L 22-29 xmoc=010) BLOOD UREA NITROGEN 22 mg/dL 7-21 (BEAKER) (test xlqj=818) CREATININE (BEAKER) (test 1.37 mg/dL 0.57-1.25 kzlg=803) GLUCOSE RANDOM (BEAKER) 118 mg/dL 70-105 (test hcyk=241) CALCIUM (BEAKER) (test 9.6 mg/dL 8.4-10.2 reed=977) AST (SGOT) (BEAKER) (test 25 U/L 5-34 ltvi=628) ALT (SGPT) (BEAKER) (test 10 U/L 6-55 dhgu=188) EGFR (BEAKER) (test 54 mL/min/1.73 sq m ESTIMATED GFR IS NOT jxky=4058) ACCURATE CREATININE CLEARANCE IN PREDICTING GLOMERULAR FILTRATION RATE. ESTIMATED GFR IS NOT APPLICABLE FOR DIALYSIS PATIENTS. Specimen slightly ictericBILIRUBIN, [id number] 05:52:00 Test Item Value Reference Range Comments BILIRUBIN DIRECT (BEAKER) (test ttcd=504) 1.6 mg/dL 0.1-0.5 PROTHROMBIN [id number] 05:41:00 Test Item Value Reference Range Comments PROTIME (BEAKER) (test lpih=057) 21.3 seconds 11.7-14.7 INR (BEAKER) (test djvt=093) 1.8 <=5.9 RECOMMENDED COUMADIN/WARFARIN INR THERAPY RANGESSTANDARD DOSE: 2.0 - 3.0 Includes: PROPHYLAXIS forvenous thrombosis, systemic embolization; TREATMENT for venous thrombosis and/or pulmonary embolus.HIGH RISK: Target INR is 2.5-3.5 for patients with mechanical heart valves.CBC W/PLT COUNT & AUTO [id number] 05:32:00 Test Item Value Reference Range Comments WHITE BLOOD CELL COUNT (BEAKER) (test meaz=088) 5.0 K/ L 3.5-10.5 RED BLOOD CELL COUNT (BEAKER) (test kzjn=768) 2.53 M/ L 4.63-6.08 HEMOGLOBIN (BEAKER) (test sxhi=900) 8.1 GM/DL 13.7-17.5 HEMATOCRIT (BEAKER) (test cehr=050) 23.6 % 40.1-51.0 MEAN CORPUSCULAR VOLUME (BEAKER) (test zlsg=589) 93.3 fL 79.0-92.2 MEAN CORPUSCULAR HEMOGLOBIN (BEAKER) (test 32.0 pg 25.7-32.2 xrnt=144) MEAN CORPUSCULAR HEMOGLOBIN CONC (BEAKER) (test 34.3 GM/DL 32.3-36.5 xgnd=607) RED CELL DISTRIBUTION WIDTH (BEAKER) (test 14.6 % 11.6-14.4 bkyv=326) PLATELET COUNT (BEAKER) (test olag=807) 73 K/CU MM 150-450 MEAN PLATELET VOLUME (BEAKER) (test hizi=942) 8.8 fL 9.4-12.4 NUCLEATED RED BLOOD CELLS (BEAKER) (test 0 /100 WBC 0-0 sdpi=680) NEUTROPHILS RELATIVE PERCENT (BEAKER) (test 71 % nzwo=771) LYMPHOCYTES RELATIVE PERCENT (BEAKER) (test 10 % ygkb=463) MONOCYTES RELATIVE PERCENT (BEAKER) (test 16 % ybwt=565) EOSINOPHILS RELATIVE PERCENT (BEAKER) (test 3 % slzb=922) BASOPHILS RELATIVE PERCENT (BEAKER) (test 0 % rlmu=188) NEUTROPHILS ABSOLUTE COUNT (BEAKER) (test 3.56 K/ L 1.78-5.38 jxqz=420) LYMPHOCYTES ABSOLUTE COUNT (BEAKER) (test 0.48 K/ L 1.32-3.57 epte=692) MONOCYTES ABSOLUTE COUNT (BEAKER) (test hcdn=288) 0.80 K/ L 0.30-0.82 EOSINOPHILS ABSOLUTE COUNT (BEAKER) (test 0.13 K/ L 0.04-0.54 gfog=178) BASOPHILS ABSOLUTE COUNT (BEAKER) (test jkgk=107) 0.01 K/ L 0.01-0.08 IMMATURE GRANULOCYTES-RELATIVE PERCENT (BEAKER) 1 % 0-1 (test sjak=8307) POCT-GLUCOSE [id number] 21:24:00 Test Item Value Reference Range Comments POC-GLUCOSE METER (BEAKER) 137 mg/dL 70-110 TESTED AT [address] (test agap=9875) [place] [address] POCT-GLUCOSE [id number] 17:52:00 Test Item Value Reference Range Comments POC-GLUCOSE METER (BEAKER) 166 mg/dL 70-110 TESTED AT [address] (test eryd=1171) [place] [id number] BASIC METABOLIC [id number] 17:48:00 Test Item Value Reference Range Comments SODIUM (BEAKER) (test 128 meq/L 136-145 rzoz=543) POTASSIUM (BEAKER) (test 4.0 meq/L 3.5-5.1 bhyl=634) CHLORIDE (BEAKER) (test 97 meq/L 98-107 ptuv=194) CO2 (BEAKER) (test 23 meq/L 22-29 zjgj=363) BLOOD UREA NITROGEN 24 mg/dL 7-21 (BEAKER) (test qpjl=771) CREATININE (BEAKER) (test 1.25 mg/dL 0.57-1.25 hugi=871) GLUCOSE RANDOM (BEAKER) 123 mg/dL 70-105 (test irzv=863) CALCIUM (BEAKER) (test 8.9 mg/dL 8.4-10.2 mqmt=353) EGFR (BEAKER) (test 60 mL/min/1.73 sq m ESTIMATED GFR IS NOT dbgg=6461) ACCURATE CREATININE CLEARANCE IN PREDICTING GLOMERULAR FILTRATION RATE. ESTIMATED GFR IS NOT APPLICABLE FOR DIALYSIS PATIENTS. POCT-GLUCOSE [id number] 12:18:00 Test Item Value Reference Range Comments POC-GLUCOSE METER (BEAKER) 152 mg/dL 70-110 TESTED AT [address] (test wohj=2134) [place] [address] POCT-GLUCOSE [id number] 09:31:00 Test Item Value Reference Range Comments POC-GLUCOSE METER (BEAKER) 142 mg/dL 70-110 TESTED AT [address] (test tedc=7581) [place] [address] BASIC METABOLIC [id number] 09:03:00 Test Item Value Reference Range Comments SODIUM (BEAKER) (test 125 meq/L 136-145 bgsu=097) POTASSIUM (BEAKER) (test 5.1 meq/L 3.5-5.1 Specimen slightly kxkz=073) hemolyzed CHLORIDE (BEAKER) (test 95 meq/L 98-107 xduh=621) CO2 (BEAKER) (test 23 meq/L 22-29 kylq=065) BLOOD UREA NITROGEN 26 mg/dL 7-21 (BEAKER) (test uxnt=569) CREATININE (BEAKER) (test 1.25 mg/dL 0.57-1.25 Specimen slightly ylex=775) hemolyzed GLUCOSE RANDOM (BEAKER) 99 mg/dL 70-105 (test fbba=721) CALCIUM (BEAKER) (test 9.0 mg/dL 8.4-10.2 jobc=658) EGFR (BEAKER) (test 60 mL/min/1.73 sq m ESTIMATED GFR IS NOT efyz=7179) ACCURATE CREATININE CLEARANCE IN PREDICTING GLOMERULAR FILTRATION RATE. ESTIMATED GFR IS NOT APPLICABLE FOR DIALYSIS PATIENTS. POCT-GLUCOSE [id number] 08:38:00 Test Item Value Reference Range Comments POC-GLUCOSE METER (BEAKER) 171 mg/dL 70-110 TESTED AT [address] (test mmct=4230) [place] [address] [id number] 05:30:00 Test Item Value Reference Range Comments PHOSPHORUS (BEAKER) (test antb=435) 2.9 mg/dL 2.3-4.7 [id number] 05:30:00 Test Item Value Reference Range Comments MAGNESIUM (BEAKER) (test edex=635) 2.2 mg/dL 1.6-2.6 COMPREHENSIVE METABOLIC [id number] 05:30:00 Test Item Value Reference Range Comments TOTAL PROTEIN (BEAKER) 5.2 gm/dL 6.0-8.3 (test slgh=697) ALBUMIN (BEAKER) (test 3.4 g/dL 3.5-5.0 dhyk=8071) ALKALINE PHOSPHATASE 134 U/L 40-150 (BEAKER) (test ftbw=095) BILIRUBIN TOTAL (BEAKER) 2.3 mg/dL 0.2-1.2 (test yeww=291) SODIUM (BEAKER) (test 124 meq/L 136-145 yghz=032) POTASSIUM (BEAKER) (test 4.9 meq/L 3.5-5.1 dzvx=803) CHLORIDE (BEAKER) (test 94 meq/L 98-107 noja=191) CO2 (BEAKER) (test 24 meq/L 22-29 zwgp=061) BLOOD UREA NITROGEN 27 mg/dL 7-21 (BEAKER) (test vqza=417) CREATININE (BEAKER) (test 1.27 mg/dL 0.57-1.25 gcax=427) GLUCOSE RANDOM (BEAKER) 122 mg/dL 70-105 (test meuq=247) CALCIUM (BEAKER) (test 9.2 mg/dL 8.4-10.2 kauy=077) AST (SGOT) (BEAKER) (test 24 U/L 5-34 kldm=849) ALT (SGPT) (BEAKER) (test 10 U/L 6-55 kuoa=224) EGFR (BEAKER) (test 59 mL/min/1.73 sq m ESTIMATED GFR IS NOT tizz=8703) ACCURATE CREATININE CLEARANCE IN PREDICTING GLOMERULAR FILTRATION RATE. ESTIMATED GFR IS NOT APPLICABLE FOR DIALYSIS PATIENTS. BILIRUBIN, [id number] 05:30:00 Test Item Value Reference Range Comments BILIRUBIN DIRECT (BEAKER) (test dxht=259) 1.5 mg/dL 0.1-0.5 PROTHROMBIN [id number] 05:09:00 Test Item Value Reference Range Comments PROTIME (BEAKER) (test ydvx=919) 22.3 seconds 11.7-14.7 INR (BEAKER) (test dwxq=324) 2.0 <=5.9 RECOMMENDED COUMADIN/WARFARIN INR THERAPY RANGESSTANDARD DOSE: 2.0 - 3.0 Includes: PROPHYLAXIS forvenous thrombosis, systemic embolization; TREATMENT for venous thrombosis and/or pulmonary embolus.HIGH RISK: Target INR is 2.5-3.5 for patients with mechanical heart valves.CBC W/PLT COUNT & AUTO [id number] 04:59:00 Test Item Value Reference Range Comments WHITE BLOOD CELL COUNT (BEAKER) (test ryqb=688) 5.0 K/ L 3.5-10.5 RED BLOOD CELL COUNT (BEAKER) (test spjh=619) 2.24 M/ L 4.63-6.08 HEMOGLOBIN (BEAKER) (test wvxc=622) 7.2 GM/DL 13.7-17.5 HEMATOCRIT (BEAKER) (test rnaj=919) 20.8 % 40.1-51.0 MEAN CORPUSCULAR VOLUME (BEAKER) (test hymo=322) 92.9 fL 79.0-92.2 MEAN CORPUSCULAR HEMOGLOBIN (BEAKER) (test 32.1 pg 25.7-32.2 zgxo=939) MEAN CORPUSCULAR HEMOGLOBIN CONC (BEAKER) (test 34.6 GM/DL 32.3-36.5 izee=844) RED CELL DISTRIBUTION WIDTH (BEAKER) (test 14.2 % 11.6-14.4 enan=725) PLATELET COUNT (BEAKER) (test yaxm=077) 56 K/CU MM 150-450 MEAN PLATELET VOLUME (BEAKER) (test nxzd=170) 8.9 fL 9.4-12.4 NUCLEATED RED BLOOD CELLS (BEAKER) (test 0 /100 WBC 0-0 ufkl=531) NEUTROPHILS RELATIVE PERCENT (BEAKER) (test 82 % fpej=808) LYMPHOCYTES RELATIVE PERCENT (BEAKER) (test 5 % gxnx=510) MONOCYTES RELATIVE PERCENT (BEAKER) (test 12 % xdps=512) EOSINOPHILS RELATIVE PERCENT (BEAKER) (test 0 % xxkh=196) BASOPHILS RELATIVE PERCENT (BEAKER) (test 0 % gkgf=445) NEUTROPHILS ABSOLUTE COUNT (BEAKER) (test 4.12 K/ L 1.78-5.38 scjx=310) LYMPHOCYTES ABSOLUTE COUNT (BEAKER) (test 0.26 K/ L 1.32-3.57 gsbk=834) MONOCYTES ABSOLUTE COUNT (BEAKER) (test dgmz=073) 0.59 K/ L 0.30-0.82 EOSINOPHILS ABSOLUTE COUNT (BEAKER) (test 0.00 K/ L 0.04-0.54 cunf=009) BASOPHILS ABSOLUTE COUNT (BEAKER) (test bzru=064) 0.00 K/ L 0.01-0.08 IMMATURE GRANULOCYTES-RELATIVE PERCENT (BEAKER) 1 % 0-1 (test zpwq=0435) CALCIUM, [id number] 04:57:00 Test Item Value Reference Range Comments CALCIUM IONIZED (BEAKER) (test zdtj=224) 1.14 mmol/L 1.12-1.27 PH, BLOOD (BEAKER) (test cgsr=9648) 7.39 POCT-GLUCOSE [id number] 00:41:00 Test Item Value Reference Range Comments POC-GLUCOSE METER (BEAKER) 186 mg/dL 70-110 TESTED AT [facility] [address] [place] (test dlsa=3639) [facility] [address] CORTISOL,60 [id number] 23:00:00 Test Item Value Reference Range Comments CORTISOL BASELINE NETWORKED (BEAKER) (test 7.5 mcg/dL krtg=4482) CORTISOL 30 MINUTE NETWORKED (BEAKER) (test 14.1 mcg/dL illj=5815) CORTISOL, 60 MINUTE (BEAKER) (test rmeq=7868) 18.9 ug/dL ACTH STIMULATION TEST INTERPRETATION GUIDELINES(Synonyms: [...] serum cortisollevel 60 minutes after cosyntropin administration.CORTISOL,30 [id number] 22:05:00 Test Item Value Reference Range Comments CORTISOL BASELINE NETWORKED (BEAKER) (test 7.5 mcg/dL lelp=5352) CORTISOL, 30 MINUTE (BEAKER) (test efvf=3611) 14.1 ug/dL ACTH STIMULATION TEST INTERPRETATION GUIDELINES(Synonyms: [...] or septicshock: According to a study by Mnidy et al (NEVAEH 2000,283( 8):6957-45), the ACTH Stimulation Test provides important prognostic [...] cortisollevel 60 minutes after cosyntropin administration.BASIC METABOLIC [id number] 21:42:00 Test Item Value Reference Range Comments SODIUM (BEAKER) (test 123 meq/L 136-145 yifa=533) POTASSIUM (BEAKER) (test 4.3 meq/L 3.5-5.1 ncci=484) CHLORIDE (BEAKER) (test 93 meq/L 98-107 anhj=689) CO2 (BEAKER) (test 24 meq/L 22-29 oybm=680) BLOOD UREA NITROGEN 29 mg/dL 7-21 (BEAKER) (test wabm=761) CREATININE (BEAKER) (test 1.38 mg/dL 0.57-1.25 qtgc=277) GLUCOSE RANDOM (BEAKER) 109 mg/dL 70-105 (test kvzw=670) CALCIUM (BEAKER) (test 9.2 mg/dL 8.4-10.2 pqkl=086) EGFR (BEAKER) (test 54 mL/min/1.73 sq m ESTIMATED GFR IS NOT liai=2851) ACCURATE CREATININE CLEARANCE IN PREDICTING GLOMERULAR FILTRATION RATE. ESTIMATED GFR IS NOT APPLICABLE FOR DIALYSIS PATIENTS. Call results to Dr Almendarez METABOLIC [id number] 18:03:00 Test Item Value Reference Range Comments SODIUM (BEAKER) (test 124 meq/L 136-145 oxzh=564) POTASSIUM (BEAKER) (test 4.6 meq/L 3.5-5.1 ibku=295) CHLORIDE (BEAKER) (test 93 meq/L 98-107 ftob=946) CO2 (BEAKER) (test 25 meq/L 22-29 aypf=155) BLOOD UREA NITROGEN 32 mg/dL 7-21 (BEAKER) (test kupe=902) CREATININE (BEAKER) (test 1.40 mg/dL 0.57-1.25 gapd=130) GLUCOSE RANDOM (BEAKER) 94 mg/dL 70-105 (test azib=991) CALCIUM (BEAKER) (test 9.0 mg/dL 8.4-10.2 bluc=238) EGFR (BEAKER) (test 53 mL/min/1.73 sq m ESTIMATED GFR IS NOT gwfq=6446) ACCURATE CREATININE CLEARANCE IN PREDICTING GLOMERULAR FILTRATION RATE. ESTIMATED GFR IS NOT APPLICABLE FOR DIALYSIS PATIENTS. BODY FLUID CELL COUNT WITH [id number] 13:54:00 Test Item Value Reference Range Comments APPEARANCE FLUID (BEAKER) (test lipv=208) Slightly Hazy Clear COLOR FLUID (BEAKER) (test vspq=730) Yellow Colorless, Straw RBC FLUID (BEAKER) (test csyl=197) 1000 /cu mm <=1 ADJUSTED WBC FLUID (BEAKER) (test mmuv=2369) 54 /cu mm <=5 LINING CELLS (BEAKER) (test ykiu=1690) 2 /cu mm <=1 NEUTROPHILS FLUID (BEAKER) (test dxdu=4127) 6 % LYMPHS FLUID (BEAKER) (test rsax=979) 25 % MONO/MACROPHAGE FLUID (BEAKER) (test 69 % sytl=806) EOSINOPHILS FLUID (BEAKER) (test lisr=047) 0 % BASO FLUID (BEAKER) (test bpkh=325) 0 % CONTAINER BODY FLUID (BEAKER) (test Sterile Vial detc=4266) ALBUMIN, BODY [id number] 13:45:00 Test Item Value Reference Range Comments ALBUMIN FLUID (BEAKER) (test cyae=039) 0.8 gm/dL Reference Range: No Normals Assay performance has not been validated for this type of specimen.LACTATE DEHYDROGENASE (LDH), BODY [id number] 13:13:00 Test Item Value Reference Range Comments LACTATE DEHYDROGENASE FLUID (BEAKER) (test pcus=026) < U/L Absence of reference range indicates that normals have not been defined.Assay performance has not been validated for this type of specimen.GLUCOSE, BODY [id number] 13:13:00 Test Item Value Reference Range Comments GLUCOSE, BODY FLUID (BEAKER) (test clzx=7975) 82 mg/dL Absence of reference range indicates that normals have not been defined.Assay performance has not been validated for this type of specimen.TRIGLYCERIDES, BODY [id number] 13:10:00 Test Item Value Reference Range Comments TRIGLYCERIDES FLUID (BEAKER) (test xtja=466) 39 mg/dL Reference Range: No Normals Assay performance has not been validated for this type of specimen.PROTEIN, BODY [id number] 13:09:00 Test Item Value Reference Range Comments PROTEIN FLUID (BEAKER) (test catm=145) 1.2 g/dL Absence of reference range indicates that normals have not been defined.Assay performance has not been validated for this type of specimen.CORTISOL, [id number] 12:52:00 Test Item Value Reference Range Comments CORTISOL, BASELINE (BEAKER) (test dkjg=6024) 7.5 ug/dL ACTH STIMULATION TEST INTERPRETATION GUIDELINES(Synonyms: [...] cortisollevel 60 minutes after cosyntropin administration.BASIC METABOLIC [id number] 12:40:00 Test Item Value Reference Range Comments SODIUM (BEAKER) (test 119 meq/L 136-145 puqb=749) POTASSIUM (BEAKER) (test 5.2 meq/L 3.5-5.1 doop=442) CHLORIDE (BEAKER) (test 90 meq/L 98-107 vxbg=908) CO2 (BEAKER) (test 23 meq/L 22-29 yxtj=855) BLOOD UREA NITROGEN 34 mg/dL 7-21 (BEAKER) (test gsle=302) CREATININE (BEAKER) (test 1.46 mg/dL 0.57-1.25 atsh=362) GLUCOSE RANDOM (BEAKER) 84 mg/dL 70-105 (test xswu=893) CALCIUM (BEAKER) (test 8.8 mg/dL 8.4-10.2 ndxb=754) EGFR (BEAKER) (test 51 mL/min/1.73 sq m ESTIMATED GFR IS NOT oiwf=8211) ACCURATE CREATININE CLEARANCE IN PREDICTING GLOMERULAR FILTRATION RATE. ESTIMATED GFR IS NOT APPLICABLE FOR DIALYSIS PATIENTS. Specimen slightly ictericRAD, CHEST, 1 VIEW, NON [id number] 11:50:00Reason for exam:->coughShould this be performed at the bedside?->YesFINAL REPORT Chest one view compared to May 12, 2018 Discussion: There is diffuse interstitial prominence. No effusion or pneumothorax. Heart size normal. IMPRESSIONS: No changeSigned: Nisbet, Karina MDReport Verified Date/ Time: 08/26/2018 11:50:19 Reading Location: [facility] Reading Room BASIC METABOLIC [id number] 09:35:00 Test Item Value Reference Range Comments SODIUM (BEAKER) (test 119 meq/L 136-145 edde=938) POTASSIUM (BEAKER) (test 4.9 meq/L 3.5-5.1 joeb=200) CHLORIDE (BEAKER) (test 89 meq/L 98-107 crqy=201) CO2 (BEAKER) (test 23 meq/L 22-29 mood=438) BLOOD UREA NITROGEN 36 mg/dL 7-21 (BEAKER) (test ftxy=613) CREATININE (BEAKER) (test 1.46 mg/dL 0.57-1.25 aqhy=010) GLUCOSE RANDOM (BEAKER) 83 mg/dL 70-105 (test qapo=895) CALCIUM (BEAKER) (test 8.8 mg/dL 8.4-10.2 buak=081) EGFR (BEAKER) (test 51 mL/min/1.73 sq m ESTIMATED GFR IS NOT wgpx=1928) ACCURATE CREATININE CLEARANCE IN PREDICTING GLOMERULAR FILTRATION RATE. ESTIMATED GFR IS NOT APPLICABLE FOR DIALYSIS PATIENTS. POCT-GLUCOSE [id number] 05:56:00 Test Item Value Reference Range Comments POC-GLUCOSE METER (BEAKER) 86 mg/dL 70-110 TESTED AT [facility] [address], [place] (test giwp=3473) [facility] [address] CBC W/PLT COUNT & AUTO [id number] 04:42:00 Test Item Value Reference Range Comments WHITE BLOOD CELL COUNT (BEAKER) (test kegu=726) 10.5 K/ L 3.5-10.5 RED BLOOD CELL COUNT (BEAKER) (test pfoo=801) 2.37 M/ L 4.63-6.08 HEMOGLOBIN (BEAKER) (test twtd=025) 7.4 GM/DL 13.7-17.5 HEMATOCRIT (BEAKER) (test pdqh=726) 21.6 % 40.1-51.0 MEAN CORPUSCULAR VOLUME (BEAKER) (test ltns=209) 91.1 fL 79.0-92.2 MEAN CORPUSCULAR HEMOGLOBIN (BEAKER) (test 31.2 pg 25.7-32.2 bgio=230) MEAN CORPUSCULAR HEMOGLOBIN CONC (BEAKER) (test 34.3 GM/DL 32.3-36.5 qkbe=485) RED CELL DISTRIBUTION WIDTH (BEAKER) (test 14.4 % 11.6-14.4 uyrz=631) PLATELET COUNT (BEAKER) (test qnyw=755) 67 K/CU MM 150-450 MEAN PLATELET VOLUME (BEAKER) (test rflu=423) 8.3 fL 9.4-12.4 NUCLEATED RED BLOOD CELLS (BEAKER) (test 0 /100 WBC 0-0 ozii=883) NEUTROPHILS RELATIVE PERCENT (BEAKER) (test 82 % scdx=408) LYMPHOCYTES RELATIVE PERCENT (BEAKER) (test 4 % olza=096) MONOCYTES RELATIVE PERCENT (BEAKER) (test 12 % dbxb=195) EOSINOPHILS RELATIVE PERCENT (BEAKER) (test 1 % isoh=726) BASOPHILS RELATIVE PERCENT (BEAKER) (test 0 % usix=467) NEUTROPHILS ABSOLUTE COUNT (BEAKER) (test 8.62 K/ L 1.78-5.38 vztb=736) LYMPHOCYTES ABSOLUTE COUNT (BEAKER) (test 0.45 K/ L 1.32-3.57 rosv=512) MONOCYTES ABSOLUTE COUNT (BEAKER) (test qibf=349) 1.31 K/ L 0.30-0.82 EOSINOPHILS ABSOLUTE COUNT (BEAKER) (test 0.10 K/ L 0.04-0.54 izve=335) BASOPHILS ABSOLUTE COUNT (BEAKER) (test ncxy=703) 0.00 K/ L 0.01-0.08 IMMATURE GRANULOCYTES-RELATIVE PERCENT (BEAKER) 1 % 0-1 (test jtgf=5711) COMPREHENSIVE METABOLIC [id number] 04:36:00 Test Item Value Reference Range Comments TOTAL PROTEIN (BEAKER) 4.9 gm/dL 6.0-8.3 (test fyvg=050) ALBUMIN (BEAKER) (test 2.8 g/dL 3.5-5.0 ydni=1703) ALKALINE PHOSPHATASE 146 U/L 40-150 (BEAKER) (test ancv=481) BILIRUBIN TOTAL (BEAKER) 2.9 mg/dL 0.2-1.2 (test mizq=910) SODIUM (BEAKER) (test 118 meq/L 136-145 hbou=776) POTASSIUM (BEAKER) (test 5.2 meq/L 3.5-5.1 hxez=390) CHLORIDE (BEAKER) (test 90 meq/L 98-107 yarw=151) CO2 (BEAKER) (test 23 meq/L 22-29 ukdm=095) BLOOD UREA NITROGEN 37 mg/dL 7-21 (BEAKER) (test nooc=534) CREATININE (BEAKER) (test 1.47 mg/dL 0.57-1.25 kppj=312) GLUCOSE RANDOM (BEAKER) 65 mg/dL 70-105 (test adsv=687) CALCIUM (BEAKER) (test 8.9 mg/dL 8.4-10.2 qnqc=526) AST (SGOT) (BEAKER) (test 29 U/L 5-34 turf=610) ALT (SGPT) (BEAKER) (test 10 U/L 6-55 juop=359) EGFR (BEAKER) (test 50 mL/min/1.73 sq m ESTIMATED GFR IS NOT cyad=0628) ACCURATE CREATININE CLEARANCE IN PREDICTING GLOMERULAR FILTRATION RATE. ESTIMATED GFR IS NOT APPLICABLE FOR DIALYSIS PATIENTS. Specimen slightly [id number] 04:33:00 Test Item Value Reference Range Comments PHOSPHORUS (BEAKER) (test hkwy=726) 3.1 mg/dL 2.3-4.7 [id number] 04:33:00 Test Item Value Reference Range Comments MAGNESIUM (BEAKER) (test gncu=301) 2.1 mg/dL 1.6-2.6 CALCIUM, [id number] 04:05:00 Test Item Value Reference Range Comments CALCIUM IONIZED (BEAKER) (test beuo=743) 1.13 mmol/L 1.12-1.27 PH, BLOOD (BEAKER) (test cauk=7862) 7.38 BASIC METABOLIC [id number] 01:34:00 Test Item Value Reference Range Comments SODIUM (BEAKER) (test 117 meq/L 136-145 awqv=090) POTASSIUM (BEAKER) (test 4.9 meq/L 3.5-5.1 flvm=916) CHLORIDE (BEAKER) (test 89 meq/L 98-107 awan=593) CO2 (BEAKER) (test 22 meq/L 22-29 qpgr=733) BLOOD UREA NITROGEN 37 mg/dL 7-21 (BEAKER) (test lklc=423) CREATININE (BEAKER) (test 1.52 mg/dL 0.57-1.25 zvyo=472) GLUCOSE RANDOM (BEAKER) 67 mg/dL 70-105 (test ogwc=193) CALCIUM (BEAKER) (test 9.1 mg/dL 8.4-10.2 lnko=480) EGFR (BEAKER) (test 48 mL/min/1.73 sq m ESTIMATED GFR IS NOT fbip=5001) ACCURATE CREATININE CLEARANCE IN PREDICTING GLOMERULAR FILTRATION RATE. ESTIMATED GFR IS NOT APPLICABLE FOR DIALYSIS PATIENTS. Specimen slightly ictericU/S, ABDOMINAL, [id number] 23:49:00Abdomen limited area? Add comment if clarification [...] Verified Date/Time: 08/25/2018 23:49:36 Reading Location: [facility] B1 C013Y CT Body Reading Room POCT-GLUCOSE [id number] 23:16:00 Test Item Value Reference Range Comments POC-GLUCOSE METER (BEAKER) 89 mg/dL 70-110 TESTED AT [facility] [address], [place] (test pdcq=5654) [facility] [address] COMPREHENSIVE METABOLIC [id number] 21:15:00 Test Item Value Reference Range Comments TOTAL PROTEIN (BEAKER) 5.4 gm/dL 6.0-8.3 (test jcxz=189) ALBUMIN (BEAKER) (test 3.1 g/dL 3.5-5.0 hbdn=1268) ALKALINE PHOSPHATASE 164 U/L 40-150 (BEAKER) (test btle=907) BILIRUBIN TOTAL (BEAKER) 3.1 mg/dL 0.2-1.2 (test kcrm=228) SODIUM (BEAKER) (test 116 meq/L 136-145 qddn=178) POTASSIUM (BEAKER) (test 5.0 meq/L 3.5-5.1 tydf=472) CHLORIDE (BEAKER) (test 87 meq/L 98-107 axcq=727) CO2 (BEAKER) (test 22 meq/L 22-29 ozzk=333) BLOOD UREA NITROGEN 38 mg/dL 7-21 (BEAKER) (test kzbw=033) CREATININE (BEAKER) (test 1.52 mg/dL 0.57-1.25 dazg=298) GLUCOSE RANDOM (BEAKER) 67 mg/dL 70-105 (test lwga=186) CALCIUM (BEAKER) (test 9.1 mg/dL 8.4-10.2 ngjb=204) AST (SGOT) (BEAKER) (test 30 U/L 5-34 dgqd=771) ALT (SGPT) (BEAKER) (test 10 U/L 6-55 eudk=870) EGFR (BEAKER) (test 48 mL/min/1.73 sq m ESTIMATED GFR IS NOT ucml=5024) ACCURATE CREATININE CLEARANCE IN PREDICTING GLOMERULAR FILTRATION RATE. ESTIMATED GFR IS NOT APPLICABLE FOR DIALYSIS PATIENTS. Recheck and call Dr. Solorio with results [phone] slightly ictericBASIC METABOLIC [id number] 17:36:00 Test Item Value Reference Range Comments SODIUM (BEAKER) (test 119 meq/L 136-145 edar=477) POTASSIUM (BEAKER) (test 5.0 meq/L 3.5-5.1 ryky=284) CHLORIDE (BEAKER) (test 89 meq/L 98-107 vpcs=149) CO2 (BEAKER) (test 22 meq/L 22-29 ymla=032) BLOOD UREA NITROGEN 38 mg/dL 7-21 (BEAKER) (test mkyy=732) CREATININE (BEAKER) (test 1.50 mg/dL 0.57-1.25 tsxx=297) GLUCOSE RANDOM (BEAKER) 70 mg/dL 70-105 (test fchs=665) CALCIUM (BEAKER) (test 8.9 mg/dL 8.4-10.2 aqtq=303) EGFR (BEAKER) (test 49 mL/min/1.73 sq m ESTIMATED GFR IS NOT tzld=7686) ACCURATE CREATININE CLEARANCE IN PREDICTING GLOMERULAR FILTRATION RATE. ESTIMATED GFR IS NOT APPLICABLE FOR DIALYSIS PATIENTS. Specimen slightly ictericCT, CHEST, WITH HIGH RESOLUTION, INTERSTITAL LUNG [id number] 17:36:00Reason for exam:->follow up for lung noduleFINAL [...] Verified Date/Time: 08/25/2018 17:36:51 Reading Location: [facility] B1 [id number] CT Body Reading Room CT, SPINE, LUMBAR, WO [id number] 17:06:00FINAL REPORT CT thoracic and lumbar spine [...] Bain Verified Date/Time: 08/25/2018 17:06:21 Reading Location: [facility] Radiology Reading Room CT, SPINE, THORACIC, WO [id number] 17:06:00FINAL REPORT CT thoracic and lumbar spine [...] Verified Date/Time: 08/25/2018 17: 06:21 Reading Location: [facility] Radiology Reading Room EOSINOPHIL SMEAR, [id number] 16:40:00 Test Item Value Reference Range Comments EOSINOPHIL SMEAR, URINE (BEAKER) (test No EOS seen No EOS seen gmbx=8642) SODIUM, RANDOM [id number] 15:13:00 Test Item Value Reference Range Comments SODIUM URINE (BEAKER) (test lphz=198) < meq/L Reference Range: No NormalsCOMPREHENSIVE METABOLIC [id number] 15:12:00 Test Item Value Reference Range Comments TOTAL PROTEIN (BEAKER) 5.0 gm/dL 6.0-8.3 (test rxje=550) ALBUMIN (BEAKER) (test 2.9 g/dL 3.5-5.0 payr=1294) ALKALINE PHOSPHATASE 154 U/L 40-150 (BEAKER) (test wujl=691) BILIRUBIN TOTAL (BEAKER) 3.1 mg/dL 0.2-1.2 (test ihjl=118) SODIUM (BEAKER) (test 116 meq/L 136-145 jjnh=572) POTASSIUM (BEAKER) (test 4.8 meq/L 3.5-5.1 ntwq=970) CHLORIDE (BEAKER) (test 87 meq/L 98-107 zrzp=822) CO2 (BEAKER) (test 24 meq/L 22-29 zqbv=845) BLOOD UREA NITROGEN 39 mg/dL 7-21 (BEAKER) (test zegu=841) CREATININE (BEAKER) (test 1.53 mg/dL 0.57-1.25 esbn=086) GLUCOSE RANDOM (BEAKER) 67 mg/dL 70-105 (test lgsd=470) CALCIUM (BEAKER) (test 8.6 mg/dL 8.4-10.2 anfj=658) AST (SGOT) (BEAKER) (test 24 U/L 5-34 iqzr=694) ALT (SGPT) (BEAKER) (test 11 U/L 6-55 xkuu=404) EGFR (BEAKER) (test 48 mL/min/1.73 sq m ESTIMATED GFR IS NOT osqn=2216) ACCURATE CREATININE CLEARANCE IN PREDICTING GLOMERULAR FILTRATION RATE. ESTIMATED GFR IS NOT APPLICABLE FOR DIALYSIS PATIENTS. Specimen slightly ictericPROTEIN, RANDOM [id number] 15:12:00 Test Item Value Reference Range Comments PROTEIN, URINE (BEAKER) (test bwrp=2875) < mg/dL 0-14 CREATININE, RANDOM [id number] 15:10:00 Test Item Value Reference Range Comments CREATININE URINE (BEAKER) (test eowt=179) 75.0 mg/dL Reference Range: No NormalsURINALYSIS W/ [id number] 14:55:00 Test Item Value Reference Range Comments COLOR (BEAKER) (test hqgi=582) Yellow CLARITY (BEAKER) (test jtlh=622) Hazy SPECIFIC GRAVITY UA (BEAKER) (test wgdk=446) 1.009 1.001-1.035 PH UA (BEAKER) (test ftjc=459) 5.5 5.0-8.0 PROTEIN UA (BEAKER) (test uvlz=901) Negative Negative GLUCOSE UA (BEAKER) (test yolk=657) Negative Negative KETONES UA (BEAKER) (test itpq=945) Negative Negative BILIRUBIN UA (BEAKER) (test wxkh=289) Negative Negative BLOOD UA (BEAKER) (test hvcj=458) Small Negative NITRITE UA (BEAKER) (test rwja=523) Negative Negative LEUKOCYTE ESTERASE UA (BEAKER) (test usqe=791) Negative Negative UROBILINOGEN UA (BEAKER) (test mkay=995) 0.2 mg/dL 0.2-1.0 RBC UA (BEAKER) (test lexu=777) 20 /HPF WBC UA (BEAKER) (test ouyd=243) 27 /HPF SQUAMOUS EPITHELIAL (BEAKER) (test gwvo=875) 18 /HPF SOURCE(BEAKER) (test rmsn=8020) URINALYSIS W/ REFLEX URINE [id number] 14:47:00 Test Item Value Reference Range Comments COLOR (BEAKER) (test mzfr=341) Yellow CLARITY (BEAKER) (test ujat=114) Hazy SPECIFIC GRAVITY UA (BEAKER) (test ybtf=870) 1.010 1.001-1.035 PH UA (BEAKER) (test xmgm=060) 5.5 5.0-8.0 PROTEIN UA (BEAKER) (test ekcr=774) Negative Negative GLUCOSE UA (BEAKER) (test xuyp=284) Negative Negative KETONES UA (BEAKER) (test iwlw=263) Negative Negative BILIRUBIN UA (BEAKER) (test krca=410) Negative Negative BLOOD UA (BEAKER) (test qrsv=507) Small Negative NITRITE UA (BEAKER) (test qkss=460) Negative Negative LEUKOCYTE ESTERASE UA (BEAKER) (test zhdx=810) Negative Negative UROBILINOGEN UA (BEAKER) (test wiop=639) 0.2 mg/dL 0.2-1.0 RBC UA (BEAKER) (test rejp=234) 38 /HPF WBC UA (BEAKER) (test jlgv=104) 7 /HPF SQUAMOUS EPITHELIAL (BEAKER) (test dmsi=223) 18 /HPF AMORPHOUS CRYSTALS (BEAKER) (test gqph=5963) Rare SOURCE(BEAKER) (test bjgw=4930) OSMOLALITY, [id number] 14:40:00 Test Item Value Reference Range Comments OSMOLALITY URINE (BEAKER) (test gsoa=656) 284 mOsm/kg 40-1,400 [id number] 13:34:00 Test Item Value Reference Range Comments PROCALCITONIN (BEAKER) (test pkmi=0957) 0.25 ng/mL <0.05 SEPSIS RISK (ng/mL)Low: 0.05-0.50Intermediate: 0.51-2.00High: & gt;=2.01OSMOLALITY, [id number] 12:43:00 Test Item Value Reference Range Comments OSMOLALITY URINE (BEAKER) (test jwgy=268) 316 mOsm/kg 40-1,400 OSMOLALITY, [id number] 12:41:00 Test Item Value Reference Range Comments OSMOLALITY, SERUM (BEAKER) (test vqgu=059) 259 mOsm/kg 275-295 TSH/FREE T4 IF [id number] 11:36:00 Test Item Value Reference Range Comments THYROID STIMULATING HORMONE (BEAKER) (test 2.55 uIU/mL 0.35-4.94 kmex=072) [id number] 11:34:00 Test Item Value Reference Range Comments CORTISOL, TOTAL (BEAKER) (test znkj=5970) 7.9 ug/dL 3.7-19.4 SODIUM, RANDOM [id number] 11:34:00 Test Item Value Reference Range Comments SODIUM URINE (BEAKER) (test cpbq=111) < meq/L Reference Range: No NormalsBASIC METABOLIC [id number] 11:24:00 Test Item Value Reference Range Comments SODIUM (BEAKER) (test 113 meq/L 136-145 btwv=924) POTASSIUM (BEAKER) (test 5.3 meq/L 3.5-5.1 zmjf=835) CHLORIDE (BEAKER) (test 86 meq/L 98-107 kodb=864) CO2 (BEAKER) (test 21 meq/L 22-29 wezf=574) BLOOD UREA NITROGEN 39 mg/dL 7-21 (BEAKER) (test scgb=604) CREATININE (BEAKER) (test 1.57 mg/dL 0.57-1.25 ewbb=604) GLUCOSE RANDOM (BEAKER) 64 mg/dL 70-105 (test trbo=766) CALCIUM (BEAKER) (test 9.1 mg/dL 8.4-10.2 hhdr=491) EGFR (BEAKER) (test 46 mL/min/1.73 sq m ESTIMATED GFR IS NOT tjvk=0650) ACCURATE CREATININE CLEARANCE IN PREDICTING GLOMERULAR FILTRATION RATE. ESTIMATED GFR IS NOT APPLICABLE FOR DIALYSIS PATIENTS. Specimen slightly ictericURIC [id number] 11:21:00 Test Item Value Reference Range Comments URIC ACID (BEAKER) (test iywu=607) 8.2 mg/dL 2.6-7.2 Specimen slightly ictericCREATININE, RANDOM [id number] 11:21:00 Test Item Value Reference Range Comments CREATININE URINE (BEAKER) (test jwlq=109) 81.9 mg/dL Reference Range: No NormalsPOTASSIUM, RANDOM [id number] 11:21:00 Test Item Value Reference Range Comments POTASSIUM URINE (BEAKER) (test wtgv=099) 19.2 meq/L Reference Range: No NormalsCBC W/PLT COUNT & AUTO [id number] 10: 20:00 Test Item Value Reference Range Comments WHITE BLOOD CELL COUNT (BEAKER) (test irea=219) 10.9 K/ L 3.5-10.5 RED BLOOD CELL COUNT (BEAKER) (test kdtn=438) 2.46 M/ L 4.63-6.08 HEMOGLOBIN (BEAKER) (test sbdq=104) 7.9 GM/DL 13.7-17.5 HEMATOCRIT (BEAKER) (test bhlg=514) 22.2 % 40.1-51.0 MEAN CORPUSCULAR VOLUME (BEAKER) (test acoc=763) 90.2 fL 79.0-92.2 MEAN CORPUSCULAR HEMOGLOBIN (BEAKER) (test 32.1 pg 25.7-32.2 lhmc=051) MEAN CORPUSCULAR HEMOGLOBIN CONC (BEAKER) (test 35.6 GM/DL 32.3-36.5 cvfc=554) RED CELL DISTRIBUTION WIDTH (BEAKER) (test 14.2 % 11.6-14.4 hbzm=752) PLATELET COUNT (BEAKER) (test naio=967) 82 K/CU MM 150-450 MEAN PLATELET VOLUME (BEAKER) (test nxbk=535) 8.3 fL 9.4-12.4 NUCLEATED RED BLOOD CELLS (BEAKER) (test 0 /100 WBC 0-0 tika=761) (CELLAVISION MANUAL DIFF)[id number] 10:20:00 Test Item Value Reference Range Comments NEUTROPHILS - REL (CELLAVISION)(BEAKER) (test 80 % thic=6545) LYMPHOCYTES - REL (CELLAVISION)(BEAKER) (test 2 % gfcr=9885) MONOCYTES - REL (CELLAVISION)(BEAKER) (test 6 % ibqh=3043) BANDS - REL (CELLAVISION)(BEAKER) (test 12 % 0-10 ajol=0931) NEUTROPHILS - ABS (CELLAVISION)(BEAKER) (test 8.72 K/ul 1.78-5.38 aqoo=8303) LYMPHOCYTES - ABS (CELLAVISION)(BEAKER) (test 0.22 K/ul 1.32-3.57 eagp=3084) MONOCYTES - ABS (CELLAVISION)(BEAKER) (test 0.65 K/uL 0.30-0.82 fguf=7001) BANDS - ABS (CELLAVISION)(BEAKER) (test 1.31 K/uL 0.00-0.80 dzdn=0842) TOTAL COUNTED (BEAKER) (test nihz=3895) 100 WBC MORPHOLOGY (BEAKER) (test jfji=494) Normal PLT MORPHOLOGY (BEAKER) (test vjlf=419) Normal POLYCHROMATOPHILLIC RBCS(BEAKER) (test siuh=995) 2+ moderate ANISOCYTOSIS (BEAKER) (test woqr=768) 2+ moderate POIKILOCYTES (BEAKER) (test kwyk=826) 2+ moderate ARTIFACT (CELLAVISION)(BEAKER) (test hozg=8343) Present PLATELET CONCENTRATION (CELLAVISION)(BEAKER) Decreased (test qpsz=9259) Received comment: User comments: Slide comments:COMPREHENSIVE METABOLIC [id number] 09:30:00 Test Item Value Reference Range Comments TOTAL PROTEIN (BEAKER) 5.2 gm/dL 6.0-8.3 (test hzzx=392) ALBUMIN (BEAKER) (test 3.0 g/dL 3.5-5.0 jgbj=6436) ALKALINE PHOSPHATASE 158 U/L 40-150 (BEAKER) (test zvvl=644) BILIRUBIN TOTAL (BEAKER) 2.9 mg/dL 0.2-1.2 (test rpzn=660) SODIUM (BEAKER) (test 111 meq/L 136-145 etbw=505) POTASSIUM (BEAKER) (test 5.5 meq/L 3.5-5.1 xjdq=510) CHLORIDE (BEAKER) (test 87 meq/L 98-107 xxiu=728) CO2 (BEAKER) (test 20 meq/L 22-29 suki=271) BLOOD UREA NITROGEN 39 mg/dL 7-21 (BEAKER) (test qjnw=341) CREATININE (BEAKER) (test 1.55 mg/dL 0.57-1.25 vrhz=309) GLUCOSE RANDOM (BEAKER) 79 mg/dL 70-105 (test mjfo=290) CALCIUM (BEAKER) (test 9.0 mg/dL 8.4-10.2 kfim=635) AST (SGOT) (BEAKER) (test 27 U/L 5-34 mpnr=277) ALT (SGPT) (BEAKER) (test 9 U/L 6-55 dzws=881) EGFR (BEAKER) (test 47 mL/min/1.73 sq m ESTIMATED GFR IS NOT jykk=2436) ACCURATE CREATININE CLEARANCE IN PREDICTING GLOMERULAR FILTRATION RATE. ESTIMATED GFR IS NOT APPLICABLE FOR DIALYSIS PATIENTS. Specimen slightly ictericLACTIC ACID, VENOUS, WHOLE [id number] 09:15:00 Test Item Value Reference Range Comments LACTATE BLOOD VENOUS (2) (BEAKER) (test 0.9 mmol/L 0.5-2.2 fafo=5985) Effective 02/28/2016: Units/Reference Range ChangeNew: 0.5-2.2 mmol/L Previous: 5 -20 mg/dLSpecimen slightly [id number] 09:01:00 Test Item Value Reference Range Comments AMMONIA (BEAKER) (test fdal=766) 83 mol/L 18-72 PT/[id number] 08:54:00 Test Item Value Reference Range Comments PROTIME (BEAKER) (test jyco=946) 21.4 seconds 11.7-14.7 INR (BEAKER) (test mpyr=081) 1.9 <=5.9 PARTIAL THROMBOPLASTIN TIME (BEAKER) (test 44.2 seconds 22.5-36.0 cubj=112) RECOMMENDED COUMADIN/WARFARIN INR THERAPY RANGESSTANDARD DOSE: 2.0 - 3.0 Includes: PROPHYLAXIS forvenous thrombosis, systemic embolization; TREATMENT for venous thrombosis and/or pulmonary embolus.HIGH RISK: Target INR is 2.5-3.5 for patients with mechanical heart valves.PROTHROMBIN TIME/[id number] 08:53: 00 Test Item Value Reference Range Comments PROTIME (BEAKER) (test hfwu=328) 21.4 seconds 11.7-14.7 INR (BEAKER) (test dmun=097) 1.9 <=5.9 RECOMMENDED COUMADIN/WARFARIN INR THERAPY RANGESSTANDARD DOSE: 2.0 - 3.0 Includes: PROPHYLAXIS forvenous thrombosis, systemic embolization; TREATMENT for venous thrombosis and/or pulmonary embolus.HIGH RISK: Target INR is 2.5-3.5 for patients with mechanical heart valves.COMPREHENSIVE METABOLIC [id number] 13:54:00 Test Item Value Reference Range Comments TOTAL PROTEIN (BEAKER) 6.2 gm/dL 6.0-8.3 (test dgen=235) ALBUMIN (BEAKER) (test 3.4 g/dL 3.5-5.0 ygpk=7706) ALKALINE PHOSPHATASE 190 U/L 40-150 (BEAKER) (test cclr=351) BILIRUBIN TOTAL (BEAKER) 1.9 mg/dL 0.2-1.2 (test xfjb=721) SODIUM (BEAKER) (test 125 meq/L 136-145 sukd=735) POTASSIUM (BEAKER) (test 5.0 meq/L 3.5-5.1 soss=588) CHLORIDE (BEAKER) (test 99 meq/L 98-107 mqyj=220) CO2 (BEAKER) (test 19 meq/L 22-29 zeuk=943) BLOOD UREA NITROGEN 36 mg/dL 7-21 (BEAKER) (test wgri=056) CREATININE (BEAKER) (test 1.65 mg/dL 0.57-1.25 juap=446) GLUCOSE RANDOM (BEAKER) 133 mg/dL 70-105 (test uoke=090) CALCIUM (BEAKER) (test 9.5 mg/dL 8.4-10.2 tmmn=609) AST (SGOT) (BEAKER) (test 23 U/L 5-34 kyop=669) ALT (SGPT) (BEAKER) (test 12 U/L 6-55 husi=057) EGFR (BEAKER) (test 44 mL/min/1.73 sq m ESTIMATED GFR IS NOT tctz=8589) ACCURATE CREATININE CLEARANCE IN PREDICTING GLOMERULAR FILTRATION RATE. ESTIMATED GFR IS NOT APPLICABLE FOR DIALYSIS PATIENTS. BILIRUBIN, [id number] 13:54:00 Test Item Value Reference Range Comments BILIRUBIN DIRECT (BEAKER) (test cmfz=051) 1.4 mg/dL 0.1-0.5 CBC W/PLT COUNT & AUTO [id number] 13:50:00 Test Item Value Reference Range Comments WHITE BLOOD CELL COUNT (BEAKER) (test pqgp=271) 6.8 K/ L 3.5-10.5 RED BLOOD CELL COUNT (BEAKER) (test cpnf=339) 3.01 M/ L 4.63-6.08 HEMOGLOBIN (BEAKER) (test fvpr=607) 9.5 GM/DL 13.7-17.5 HEMATOCRIT (BEAKER) (test gxhs=837) 28.3 % 40.1-51.0 MEAN CORPUSCULAR VOLUME (BEAKER) (test kemx=905) 94.0 fL 79.0-92.2 MEAN CORPUSCULAR HEMOGLOBIN (BEAKER) (test 31.6 pg 25.7-32.2 jbrg=001) MEAN CORPUSCULAR HEMOGLOBIN CONC (BEAKER) (test 33.6 GM/DL 32.3-36.5 qnrn=770) RED CELL DISTRIBUTION WIDTH (BEAKER) (test 14.5 % 11.6-14.4 suwk=052) PLATELET COUNT (BEAKER) (test nonk=153) 131 K/CU MM 150-450 MEAN PLATELET VOLUME (BEAKER) (test jnpl=627) 9.0 fL 9.4-12.4 NUCLEATED RED BLOOD CELLS (BEAKER) (test 0 /100 WBC 0-0 xalk=790) NEUTROPHILS RELATIVE PERCENT (BEAKER) (test 75 % srmr=469) LYMPHOCYTES RELATIVE PERCENT (BEAKER) (test 7 % pmml=508) MONOCYTES RELATIVE PERCENT (BEAKER) (test 14 % icxa=369) EOSINOPHILS RELATIVE PERCENT (BEAKER) (test 2 % vqfo=094) BASOPHILS RELATIVE PERCENT (BEAKER) (test 0 % tgiz=093) NEUTROPHILS ABSOLUTE COUNT (BEAKER) (test 5.11 K/ L 1.78-5.38 mclq=411) LYMPHOCYTES ABSOLUTE COUNT (BEAKER) (test 0.50 K/ L 1.32-3.57 hnzv=855) MONOCYTES ABSOLUTE COUNT (BEAKER) (test 0.94 K/ L 0.30-0.82 yeic=912) EOSINOPHILS ABSOLUTE COUNT (BEAKER) (test 0.12 K/ L 0.04-0.54 dnre=793) BASOPHILS ABSOLUTE COUNT (BEAKER) (test 0.03 K/ L 0.01-0.08 rham=643) IMMATURE GRANULOCYTES-RELATIVE PERCENT (BEAKER) 1 % 0-1 (test nlfk=9517) PROTHROMBIN [id number] 13:46:00 Test Item Value Reference Range Comments PROTIME (BEAKER) (test cpxn=012) 19.5 seconds 11.7-14.7 INR (BEAKER) (test xudv=953) 1.7 <=5.9 RECOMMENDED COUMADIN/WARFARIN INR THERAPY RANGESSTANDARD DOSE: 2.0 - 3.0 Includes: PROPHYLAXIS forvenous thrombosis, systemic embolization; TREATMENT for venous thrombosis and/or pulmonary embolus.HIGH RISK: Target INR is 2.5-3.5 for patients with mechanical heart valves.BONE AND/OR JOINT IMAGING, WHOLE [id number] 16:45:00FINAL REPORT PROCEDURE: BONE SCAN, WHOLE BODY CPT CODE: [id number] INDICATION: L3 vertebral body lesion follow-up R91.1 [...] Verified Date/ Time: 08/05/2018 16:45:34 Reading Location: [address] Reading Room NIR, VERTEBROPLASTY THORACIC, [id number] 17:23:00Reason for exam:->T11, T12, L2 compression fracturesAddendum [...] Verified Date/Time: 06/04/2018 17:23:27 Reading Location : [address] Radiology Reading RoomAddendum EndsFINAL REPORT HISTORY: [...] Verified Date/Time: 06/03/2018 17:56:43 Reading Location : [place] [id number] Angio Body Reading Room ALPHA FETOPROTEIN (AFP), TUMOR [id number] 15:20:00 Test Item Value Reference Range Comments ALPHA-FETOPROTEIN (BEAKER) (test xasv=2399) 2.2 ng/mL <10.0 COMPREHENSIVE METABOLIC [id number] 14:54:00 Test Item Value Reference Range Comments TOTAL PROTEIN (BEAKER) 6.5 gm/dL 6.0-8.3 (test dfbd=484) ALBUMIN (BEAKER) (test 3.6 g/dL 3.5-5.0 ksww=1653) ALKALINE PHOSPHATASE 342 U/L 40-150 (BEAKER) (test dzvm=058) BILIRUBIN TOTAL (BEAKER) 4.2 mg/dL 0.2-1.2 (test yjef=581) SODIUM (BEAKER) (test 128 meq/L 136-145 hfny=618) POTASSIUM (BEAKER) (test 4.6 meq/L 3.5-5.1 lgms=877) CHLORIDE (BEAKER) (test 100 meq/L 98-107 gnxa=921) CO2 (BEAKER) (test 21 meq/L 22-29 nzbo=093) BLOOD UREA NITROGEN 21 mg/dL 7-21 (BEAKER) (test izix=059) CREATININE (BEAKER) (test 1.37 mg/dL 0.57-1.25 ljwz=997) GLUCOSE RANDOM (BEAKER) 108 mg/dL 70-105 (test ucnl=788) CALCIUM (BEAKER) (test 9.5 mg/dL 8.4-10.2 kydk=086) AST (SGOT) (BEAKER) (test 25 U/L 5-34 sppk=501) ALT (SGPT) (BEAKER) (test 10 U/L 6-55 ajpf=030) EGFR (BEAKER) (test 54 mL/min/1.73 sq m ESTIMATED GFR IS NOT wjvv=2420) ACCURATE CREATININE CLEARANCE IN PREDICTING GLOMERULAR FILTRATION RATE. ESTIMATED GFR IS NOT APPLICABLE FOR DIALYSIS PATIENTS. Specimen slightly ictericBILIRUBIN, [id number] 14:54:00 Test Item Value Reference Range Comments BILIRUBIN DIRECT (BEAKER) (test jenx=475) 2.1 mg/dL 0.1-0.5 CBC W/PLT COUNT & AUTO [id number] 14:52:00 Test Item Value Reference Range Comments WHITE BLOOD CELL COUNT (BEAKER) (test egsh=263) 3.9 K/ L 3.5-10.5 RED BLOOD CELL COUNT (BEAKER) (test isxg=772) 2.69 M/ L 4.63-6.08 HEMOGLOBIN (BEAKER) (test hbwt=121) 9.1 GM/DL 13.7-17.5 HEMATOCRIT (BEAKER) (test badu=732) 27.3 % 40.1-51.0 MEAN CORPUSCULAR VOLUME (BEAKER) (test urlm=482) 101.5 fL 79.0-92.2 MEAN CORPUSCULAR HEMOGLOBIN (BEAKER) (test 33.8 pg 25.7-32.2 jkeh=883) MEAN CORPUSCULAR HEMOGLOBIN CONC (BEAKER) (test 33.3 GM/DL 32.3-36.5 bmxh=735) RED CELL DISTRIBUTION WIDTH (BEAKER) (test 18.6 % 11.6-14.4 nvqe=485) PLATELET COUNT (BEAKER) (test awlw=157) 71 K/CU MM 150-450 MEAN PLATELET VOLUME (BEAKER) (test cztk=541) 9.6 fL 9.4-12.4 NUCLEATED RED BLOOD CELLS (BEAKER) (test 0 /100 WBC 0-0 oguw=700) NEUTROPHILS RELATIVE PERCENT (BEAKER) (test 62 % uwyw=332) LYMPHOCYTES RELATIVE PERCENT (BEAKER) (test 16 % yufd=733) MONOCYTES RELATIVE PERCENT (BEAKER) (test 17 % xaab=991) EOSINOPHILS RELATIVE PERCENT (BEAKER) (test 5 % zvtn=823) BASOPHILS RELATIVE PERCENT (BEAKER) (test 0 % vxpt=887) NEUTROPHILS ABSOLUTE COUNT (BEAKER) (test 2.41 K/ L 1.78-5.38 kbvq=247) LYMPHOCYTES ABSOLUTE COUNT (BEAKER) (test 0.62 K/ L 1.32-3.57 dbmb=811) MONOCYTES ABSOLUTE COUNT (BEAKER) (test pkpf=872) 0.65 K/ L 0.30-0.82 EOSINOPHILS ABSOLUTE COUNT (BEAKER) (test 0.20 K/ L 0.04-0.54 zdgk=436) BASOPHILS ABSOLUTE COUNT (BEAKER) (test tcis=668) 0.01 K/ L 0.01-0.08 IMMATURE GRANULOCYTES-RELATIVE PERCENT (BEAKER) 0 % 0-1 (test qqbp=6773) PROTHROMBIN [id number] 14:50:00 Test Item Value Reference Range Comments PROTIME (BEAKER) (test wpbf=258) 19.5 seconds 11.7-14.7 INR (BEAKER) (test dall=616) 1.7 <=5.9 RECOMMENDED COUMADIN/WARFARIN INR THERAPY RANGESSTANDARD DOSE: 2.0 - 3.0 Includes: PROPHYLAXIS forvenous thrombosis, systemic embolization; TREATMENT for venous thrombosis and/or pulmonary embolus.HIGH RISK: Target INR is 2.5-3.5 for patients with mechanical heart valves.BODY FLUID CULTURE + GRAM [id number] 13:19:00 Test Item Value Reference Range Comments CULTURE (BEAKER) (test xgxo=3427) No growth GRAM STAIN RESULT (BEAKER) (test No WBCs hxtf=2525) GRAM STAIN RESULT (BEAKER) (test No organisms seen srzq=43508) [id number] 17:36:00 Test Item Value Reference Range Comments SODIUM (BEAKER) (test yzqb=973) 133 meq/L 136-145 POTASSIUM (BEAKER) (test sruw=377) 3.2 meq/L 3.5-5.1 CHLORIDE (BEAKER) (test tyap=372) 102 meq/L 98-107 CO2 (BEAKER) (test taql=467) 21 meq/L 22-29 [id number] 13:21:00 Test Item Value Reference Range Comments SODIUM (BEAKER) (test eulu=681) 134 meq/L 136-145 POTASSIUM (BEAKER) (test eyfv=408) 3.0 meq/L 3.5-5.1 CHLORIDE (BEAKER) (test nhqs=350) 103 meq/L 98-107 CO2 (BEAKER) (test thfx=369) 22 meq/L 22-29 CALCIUM, [id number] 04:54:00 Test Item Value Reference Range Comments CALCIUM IONIZED (BEAKER) (test trwk=491) 1.09 mmol/L 1.12-1.27 PH, BLOOD (BEAKER) (test hkyn=1593) 7.35 [id number] 04:04:00 Test Item Value Reference Range Comments PHOSPHORUS (BEAKER) (test bovr=448) 2.4 mg/dL 2.3-4.7 [id number] 04:04:00 Test Item Value Reference Range Comments MAGNESIUM (BEAKER) (test qgxr=830) 2.0 mg/dL 1.6-2.6 HEPATIC FUNCTION [id number] 04:04:00 Test Item Value Reference Range Comments TOTAL PROTEIN (BEAKER) (test cvxc=351) 5.8 gm/dL 6.0-8.3 ALBUMIN (BEAKER) (test cfnb=7920) 4.1 g/dL 3.5-5.0 BILIRUBIN TOTAL (BEAKER) (test vnyo=993) 3.9 mg/dL 0.2-1.2 BILIRUBIN DIRECT (BEAKER) (test xroy=970) 2.0 mg/dL 0.1-0.5 ALKALINE PHOSPHATASE (BEAKER) (test oxxm=777) 123 U/L 40-150 AST (SGOT) (BEAKER) (test iboi=388) 14 U/L 5-34 ALT (SGPT) (BEAKER) (test ocet=569) < U/L 6-55 Specimen slightly ictericCOMPREHENSIVE METABOLIC [id number] 04:04:00 Test Item Value Reference Range Comments TOTAL PROTEIN (BEAKER) 5.8 gm/dL 6.0-8.3 (test vcir=615) ALBUMIN (BEAKER) (test 4.1 g/dL 3.5-5.0 ynso=5795) ALKALINE PHOSPHATASE 123 U/L 40-150 (BEAKER) (test qhgi=662) BILIRUBIN TOTAL (BEAKER) 3.9 mg/dL 0.2-1.2 (test titi=297) SODIUM (BEAKER) (test 135 meq/L 136-145 xzqa=000) POTASSIUM (BEAKER) (test 2.9 meq/L 3.5-5.1 uiwa=830) CHLORIDE (BEAKER) (test 103 meq/L 98-107 bgdy=420) CO2 (BEAKER) (test 21 meq/L 22-29 ijen=466) BLOOD UREA NITROGEN 18 mg/dL 7-21 (BEAKER) (test vjcn=788) CREATININE (BEAKER) (test 1.32 mg/dL 0.57-1.25 abtl=735) GLUCOSE RANDOM (BEAKER) 126 mg/dL 70-105 (test nste=855) CALCIUM (BEAKER) (test 9.8 mg/dL 8.4-10.2 odou=579) AST (SGOT) (BEAKER) (test 14 U/L 5-34 rvbs=416) ALT (SGPT) (BEAKER) (test < U/L 6-55 gscf=681) EGFR (BEAKER) (test 57 mL/min/1.73 sq m ESTIMATED GFR IS NOT dfvh=8528) ACCURATE CREATININE CLEARANCE IN PREDICTING GLOMERULAR FILTRATION RATE. ESTIMATED GFR IS NOT APPLICABLE FOR DIALYSIS PATIENTS. Specimen slightly ictericPROTHROMBIN [id number] 04:02:00 Test Item Value Reference Range Comments PROTIME (BEAKER) (test letd=193) 25.1 seconds 11.7-14.7 INR (BEAKER) (test xgwi=581) 2.3 <=5.9 RECOMMENDED COUMADIN/WARFARIN INR THERAPY RANGESSTANDARD DOSE: 2.0 - 3.0 Includes: PROPHYLAXIS forvenous thrombosis, systemic embolization; TREATMENT for venous thrombosis and/or pulmonary embolus.HIGH RISK: Target INR is 2.5-3.5 for patients with mechanical heart valves.CBC W/PLT COUNT & AUTO [id number] 03:55:00 Test Item Value Reference Range Comments WHITE BLOOD CELL COUNT (BEAKER) (test ximi=016) 3.6 K/ L 3.5-10.5 RED BLOOD CELL COUNT (BEAKER) (test egfg=371) 2.48 M/ L 4.63-6.08 HEMOGLOBIN (BEAKER) (test uxpp=158) 7.9 GM/DL 13.7-17.5 HEMATOCRIT (BEAKER) (test hmdv=618) 23.7 % 40.1-51.0 MEAN CORPUSCULAR VOLUME (BEAKER) (test pkfv=608) 95.6 fL 79.0-92.2 MEAN CORPUSCULAR HEMOGLOBIN (BEAKER) (test 31.9 pg 25.7-32.2 xzkw=669) MEAN CORPUSCULAR HEMOGLOBIN CONC (BEAKER) (test 33.3 GM/DL 32.3-36.5 gfhj=415) RED CELL DISTRIBUTION WIDTH (BEAKER) (test 18.8 % 11.6-14.4 edug=092) PLATELET COUNT (BEAKER) (test xdku=458) 38 K/CU MM 150-450 MEAN PLATELET VOLUME (BEAKER) (test ldzc=861) 9.3 fL 9.4-12.4 NUCLEATED RED BLOOD CELLS (BEAKER) (test 0 /100 WBC 0-0 dcpy=752) NEUTROPHILS RELATIVE PERCENT (BEAKER) (test 57 % wjpy=119) LYMPHOCYTES RELATIVE PERCENT (BEAKER) (test 15 % amwd=171) MONOCYTES RELATIVE PERCENT (BEAKER) (test 22 % fdiu=719) EOSINOPHILS RELATIVE PERCENT (BEAKER) (test 4 % smyp=000) BASOPHILS RELATIVE PERCENT (BEAKER) (test 0 % sfns=724) NEUTROPHILS ABSOLUTE COUNT (BEAKER) (test 2.09 K/ L 1.78-5.38 aktr=805) LYMPHOCYTES ABSOLUTE COUNT (BEAKER) (test 0.54 K/ L 1.32-3.57 yjjo=825) MONOCYTES ABSOLUTE COUNT (BEAKER) (test xqup=259) 0.81 K/ L 0.30-0.82 EOSINOPHILS ABSOLUTE COUNT (BEAKER) (test 0.15 K/ L 0.04-0.54 nlgz=303) BASOPHILS ABSOLUTE COUNT (BEAKER) (test optf=831) 0.01 K/ L 0.01-0.08 IMMATURE GRANULOCYTES-RELATIVE PERCENT (BEAKER) 1 % 0-1 (test wefe=6426) [id number] 18:07:00 Test Item Value Reference Range Comments SODIUM (BEAKER) (test qnzj=972) 132 meq/L 136-145 POTASSIUM (BEAKER) (test 2.9 meq/L 3.5-5.1 Specimen slightly hemolyzed zwnv=910) CHLORIDE (BEAKER) (test 101 meq/L 98-107 zhah=465) CO2 (BEAKER) (test qmxv=213) 18 meq/L 22-29 LACTIC ACID, VENOUS, WHOLE [id number] 16:43:00 Test Item Value Reference Range Comments LACTATE BLOOD VENOUS (2) 1.6 mmol/L 0.5-2.2 Specimen slightly hemolyzed (BEAKER) (test bftp=0880) Effective 02/28/2016: Units/Reference Range ChangeNew: 0.5-2.2 mmol/L Previous: 5 -20 mg/dLSpecimen slightly ictericBODY FLUID CULTURE + GRAM [id number] 12: 08:00 Test Item Value Reference Range Comments CULTURE (BEAKER) (test jsvz=1751) No growth GRAM STAIN RESULT (BEAKER) (test <1+ WBCs fmhy=3596) GRAM STAIN RESULT (BEAKER) (test No organisms seen nibl=42314) [id number] 08:10:00 Test Item Value Reference Range Comments PHOSPHORUS (BEAKER) (test vtuc=951) 2.8 mg/dL 2.3-4.7 [id number] 08:10:00 Test Item Value Reference Range Comments MAGNESIUM (BEAKER) (test kdol=612) 2.2 mg/dL 1.6-2.6 COMPREHENSIVE METABOLIC [id number] 08:10:00 Test Item Value Reference Range Comments TOTAL PROTEIN (BEAKER) 6.2 gm/dL 6.0-8.3 (test pggs=090) ALBUMIN (BEAKER) (test 4.4 g/dL 3.5-5.0 fewc=4000) ALKALINE PHOSPHATASE 121 U/L 40-150 (BEAKER) (test kzgb=366) BILIRUBIN TOTAL (BEAKER) 4.4 mg/dL 0.2-1.2 (test agqt=896) SODIUM (BEAKER) (test 135 meq/L 136-145 mkuj=600) POTASSIUM (BEAKER) (test 2.8 meq/L 3.5-5.1 yqrf=007) CHLORIDE (BEAKER) (test 102 meq/L 98-107 ohbm=363) CO2 (BEAKER) (test 21 meq/L 22-29 nnpv=408) BLOOD UREA NITROGEN 20 mg/dL 7-21 (BEAKER) (test ragn=461) CREATININE (BEAKER) (test 1.34 mg/dL 0.57-1.25 kirc=161) GLUCOSE RANDOM (BEAKER) 132 mg/dL 70-105 (test jkkz=980) CALCIUM (BEAKER) (test 10.0 mg/dL 8.4-10.2 opnb=104) AST (SGOT) (BEAKER) (test 16 U/L 5-34 yfkp=699) ALT (SGPT) (BEAKER) (test 6 U/L 6-55 unqh=265) EGFR (BEAKER) (test 56 mL/min/1.73 sq m ESTIMATED GFR IS NOT kmtz=4806) ACCURATE CREATININE CLEARANCE IN PREDICTING GLOMERULAR FILTRATION RATE. ESTIMATED GFR IS NOT APPLICABLE FOR DIALYSIS PATIENTS. Specimen slightly ictericHEPATIC FUNCTION [id number] 08:10:00 Test Item Value Reference Range Comments TOTAL PROTEIN (BEAKER) (test qnje=681) 6.2 gm/dL 6.0-8.3 ALBUMIN (BEAKER) (test lnnx=9549) 4.4 g/dL 3.5-5.0 BILIRUBIN TOTAL (BEAKER) (test rqlm=851) 4.4 mg/dL 0.2-1.2 BILIRUBIN DIRECT (BEAKER) (test uotx=648) 1.9 mg/dL 0.1-0.5 ALKALINE PHOSPHATASE (BEAKER) (test rnke=137) 121 U/L 40-150 AST (SGOT) (BEAKER) (test nixv=193) 16 U/L 5-34 ALT (SGPT) (BEAKER) (test dasf=131) 6 U/L 6-55 Specimen slightly ictericCALCIUM, [id number] 07:20:00 Test Item Value Reference Range Comments CALCIUM IONIZED (BEAKER) (test clph=623) 1.01 mmol/L 1.12-1.27 PH, BLOOD (BEAKER) (test byre=8477) 7.49 CBC W/PLT COUNT & AUTO [id number] 06:59:00 Test Item Value Reference Range Comments WHITE BLOOD CELL COUNT (BEAKER) (test fbah=067) 4.1 K/ L 3.5-10.5 RED BLOOD CELL COUNT (BEAKER) (test tmef=548) 2.62 M/ L 4.63-6.08 HEMOGLOBIN (BEAKER) (test urxh=279) 8.2 GM/DL 13.7-17.5 HEMATOCRIT (BEAKER) (test jmhp=649) 24.9 % 40.1-51.0 MEAN CORPUSCULAR VOLUME (BEAKER) (test tnqn=396) 95.0 fL 79.0-92.2 MEAN CORPUSCULAR HEMOGLOBIN (BEAKER) (test 31.3 pg 25.7-32.2 aywf=042) MEAN CORPUSCULAR HEMOGLOBIN CONC (BEAKER) (test 32.9 GM/DL 32.3-36.5 jwje=880) RED CELL DISTRIBUTION WIDTH (BEAKER) (test 18.6 % 11.6-14.4 qlbv=863) PLATELET COUNT (BEAKER) (test gxie=746) 38 K/CU MM 150-450 MEAN PLATELET VOLUME (BEAKER) (test qtvr=416) 9.3 fL 9.4-12.4 NUCLEATED RED BLOOD CELLS (BEAKER) (test 0 /100 WBC 0-0 iixu=367) NEUTROPHILS RELATIVE PERCENT (BEAKER) (test 66 % tzdx=083) LYMPHOCYTES RELATIVE PERCENT (BEAKER) (test 12 % qdzp=373) MONOCYTES RELATIVE PERCENT (BEAKER) (test 18 % nklp=415) EOSINOPHILS RELATIVE PERCENT (BEAKER) (test 3 % pqnt=683) BASOPHILS RELATIVE PERCENT (BEAKER) (test 1 % nspy=453) NEUTROPHILS ABSOLUTE COUNT (BEAKER) (test 2.74 K/ L 1.78-5.38 pyii=039) LYMPHOCYTES ABSOLUTE COUNT (BEAKER) (test 0.49 K/ L 1.32-3.57 rggi=939) MONOCYTES ABSOLUTE COUNT (BEAKER) (test dxtb=296) 0.75 K/ L 0.30-0.82 EOSINOPHILS ABSOLUTE COUNT (BEAKER) (test 0.11 K/ L 0.04-0.54 szlg=738) BASOPHILS ABSOLUTE COUNT (BEAKER) (test hdaj=862) 0.02 K/ L 0.01-0.08 IMMATURE GRANULOCYTES-RELATIVE PERCENT (BEAKER) 1 % 0-1 (test nzrn=6564) PROTHROMBIN [id number] 06:56:00 Test Item Value Reference Range Comments PROTIME (BEAKER) (test qfvl=075) 24.5 seconds 11.7-14.7 INR (BEAKER) (test anxj=512) 2.2 <=5.9 RECOMMENDED COUMADIN/WARFARIN INR THERAPY RANGESSTANDARD DOSE: 2.0 - 3.0 Includes: PROPHYLAXIS forvenous thrombosis, systemic embolization; TREATMENT for venous thrombosis and/or pulmonary embolus.HIGH RISK: Target INR is 2.5-3.5 for patients with mechanical heart valves.BODY FLUID CELL COUNT WITH [id number] 18:36:00 Test Item Value Reference Range Comments APPEARANCE FLUID (BEAKER) (test yqjc=944) Hazy Clear COLOR FLUID (BEAKER) (test hfvs=311) Yellow Colorless, Straw RBC FLUID (BEAKER) (test tote=892) 2000 /cu mm <=1 ADJUSTED WBC FLUID (BEAKER) (test bzjw=2779) 96 /cu mm <=5 LINING CELLS (BEAKER) (test xgvx=2502) 2 /cu mm <=1 NEUTROPHILS FLUID (BEAKER) (test eiwt=7038) 4 % LYMPHS FLUID (BEAKER) (test ymrx=939) 11 % MONO/MACROPHAGE FLUID (BEAKER) (test ujnh=188) 85 % EOSINOPHILS FLUID (BEAKER) (test gcqu=926) 0 % BASO FLUID (BEAKER) (test oubq=876) 0 % CONTAINER BODY FLUID (BEAKER) (test zezx=8697) EDTA Tube U/S, [id number] 12:49:00Limit to 4L due to AKIReason for exam:-> ascitesFINAL REPORT Indication: Ascites. Technique: Ultrasound guided paracentesis. Findings:Preliminary ultrasound confirms ascites. A safe window was identified in the midline (suprapubic). The procedure was explained to the patient and informed consent was signed. The skin was marked and prepped in standard sterile fashion. 2% lidocaine was used for local anesthesia. A 5 Portuguese needle catheter system was advanced into the peritoneal space. 3300 cc clear yellow fluid was taken off.Sample of the fluid was sent to the laboratory. Patient tolerated the procedure well. Impression: Ultrasound guided paracentesis. Signed: Aristeo Xiong MDReport Verified Date/ Time: 05/13/2018 12:49:12 Reading Location: [facility] P006J Ultrasound Reading Room 12: 49 PMCALCIUM, [id number] 05:29:00 Test Item Value Reference Range Comments CALCIUM IONIZED (BEAKER) (test fdzj=051) 1.10 mmol/L 1.12-1.27 PH, BLOOD (BEAKER) (test iuft=7946) 7.35 B-TYPE NATRIURETIC FACTOR (BNP)2018-05-13 04:48:00 Test Item Value Reference Range Comments B-TYPE NATRIURETIC PEPTIDE (BEAKER) (test 274 pg/mL 0-100 ifqf=243) [id number] 04:44:00 Test Item Value Reference Range Comments PHOSPHORUS (BEAKER) (test movw=161) 3.0 mg/dL 2.3-4.7 [id number] 04:44:00 Test Item Value Reference Range Comments MAGNESIUM (BEAKER) (test ledr=773) 2.0 mg/dL 1.6-2.6 COMPREHENSIVE METABOLIC [id number] 04:44:00 Test Item Value Reference Range Comments TOTAL PROTEIN (BEAKER) 6.2 gm/dL 6.0-8.3 (test maah=037) ALBUMIN (BEAKER) (test 4.3 g/dL 3.5-5.0 dbvs=4155) ALKALINE PHOSPHATASE 134 U/L 40-150 (BEAKER) (test ilyx=516) BILIRUBIN TOTAL (BEAKER) 4.4 mg/dL 0.2-1.2 (test whyv=048) SODIUM (BEAKER) (test 131 meq/L 136-145 afll=851) POTASSIUM (BEAKER) (test 3.7 meq/L 3.5-5.1 yhfn=324) CHLORIDE (BEAKER) (test 96 meq/L 98-107 rqms=810) CO2 (BEAKER) (test 26 meq/L 22-29 zasp=261) BLOOD UREA NITROGEN 20 mg/dL 7-21 (BEAKER) (test cnlr=448) CREATININE (BEAKER) (test 1.60 mg/dL 0.57-1.25 yurb=475) GLUCOSE RANDOM (BEAKER) 149 mg/dL 70-105 (test jfjy=639) CALCIUM (BEAKER) (test 10.0 mg/dL 8.4-10.2 ytsx=860) AST (SGOT) (BEAKER) (test 18 U/L 5-34 ykmf=105) ALT (SGPT) (BEAKER) (test 7 U/L 6-55 vqlx=756) EGFR (BEAKER) (test 46 mL/min/1.73 sq m ESTIMATED GFR IS NOT mcpl=8097) ACCURATE CREATININE CLEARANCE IN PREDICTING GLOMERULAR FILTRATION RATE. ESTIMATED GFR IS NOT APPLICABLE FOR DIALYSIS PATIENTS. Specimen slightly ictericHEPATIC FUNCTION [id number] 04:44:00 Test Item Value Reference Range Comments TOTAL PROTEIN (BEAKER) (test lnom=935) 6.2 gm/dL 6.0-8.3 ALBUMIN (BEAKER) (test ulvs=4007) 4.3 g/dL 3.5-5.0 BILIRUBIN TOTAL (BEAKER) (test cipd=180) 4.4 mg/dL 0.2-1.2 BILIRUBIN DIRECT (BEAKER) (test imjc=935) 2.4 mg/dL 0.1-0.5 ALKALINE PHOSPHATASE (BEAKER) (test qnqb=213) 134 U/L 40-150 AST (SGOT) (BEAKER) (test cqza=410) 18 U/L 5-34 ALT (SGPT) (BEAKER) (test kksq=215) 7 U/L 6-55 Specimen slightly ictericPROTHROMBIN [id number] 04:30:00 Test Item Value Reference Range Comments PROTIME (BEAKER) (test epsy=033) 23.8 seconds 11.7-14.7 INR (BEAKER) (test vwlf=053) 2.1 <=5.9 RECOMMENDED COUMADIN/WARFARIN INR THERAPY RANGESSTANDARD DOSE: 2.0 - 3.0 Includes: PROPHYLAXIS forvenous thrombosis, systemic embolization; TREATMENT for venous thrombosis and/or pulmonary embolus.HIGH RISK: Target INR is 2.5-3.5 for patients with mechanical heart valves.CBC W/PLT COUNT & AUTO [id number] 04:19:00 Test Item Value Reference Range Comments WHITE BLOOD CELL COUNT (BEAKER) (test cxwq=260) 4.0 K/ L 3.5-10.5 RED BLOOD CELL COUNT (BEAKER) (test senn=335) 2.60 M/ L 4.63-6.08 HEMOGLOBIN (BEAKER) (test dyys=545) 8.2 GM/DL 13.7-17.5 HEMATOCRIT (BEAKER) (test duyh=925) 24.6 % 40.1-51.0 MEAN CORPUSCULAR VOLUME (BEAKER) (test jrey=727) 94.6 fL 79.0-92.2 MEAN CORPUSCULAR HEMOGLOBIN (BEAKER) (test 31.5 pg 25.7-32.2 shqb=124) MEAN CORPUSCULAR HEMOGLOBIN CONC (BEAKER) (test 33.3 GM/DL 32.3-36.5 lkru=034) RED CELL DISTRIBUTION WIDTH (BEAKER) (test 18.1 % 11.6-14.4 oczf=550) PLATELET COUNT (BEAKER) (test sghz=787) 46 K/CU MM 150-450 MEAN PLATELET VOLUME (BEAKER) (test xqno=754) 9.1 fL 9.4-12.4 NUCLEATED RED BLOOD CELLS (BEAKER) (test 0 /100 WBC 0-0 zsaz=150) NEUTROPHILS RELATIVE PERCENT (BEAKER) (test 62 % esea=584) LYMPHOCYTES RELATIVE PERCENT (BEAKER) (test 13 % ovef=114) MONOCYTES RELATIVE PERCENT (BEAKER) (test 21 % cdvd=602) EOSINOPHILS RELATIVE PERCENT (BEAKER) (test 3 % fhot=786) BASOPHILS RELATIVE PERCENT (BEAKER) (test 0 % atap=324) NEUTROPHILS ABSOLUTE COUNT (BEAKER) (test 2.49 K/ L 1.78-5.38 tqfz=888) LYMPHOCYTES ABSOLUTE COUNT (BEAKER) (test 0.53 K/ L 1.32-3.57 lzib=629) MONOCYTES ABSOLUTE COUNT (BEAKER) (test wdzy=324) 0.86 K/ L 0.30-0.82 EOSINOPHILS ABSOLUTE COUNT (BEAKER) (test 0.10 K/ L 0.04-0.54 znqk=399) BASOPHILS ABSOLUTE COUNT (BEAKER) (test qvrr=337) 0.01 K/ L 0.01-0.08 IMMATURE GRANULOCYTES-RELATIVE PERCENT (BEAKER) 1 % 0-1 (test aiif=2285) TISSUE [id number] 14:55:00Surgical Pathology Report Case: [id number] Authorizing Provider: Karina Rain MD Collected: 05/08/20181999 Ordering Location: [address] Received: 05/11/2018 0837 Service Pathologist: Jesús Craig MD Specimen: Bone L3 VERTEBRAL BODYBONE BIOPSY:BONE AND BONE MARROW, NEGATIVE FOR MALIGNANCY.SEE DIAGNOSTIC COMMENT. Signing Pathologist Direct Phone Line: [phone] signed by Jesús Craig MD on 05/12/2018 [...] as thesampled material may not be fully territory account representative. This case was discussed with Dr. Andrea Mason, real estate sales agent.[id number], [id number], [id number], [id number] fracture of body thoracic vertebralL3 vertebral body [...] developed and its performance characteristics determined by [facility], Pathology Laboratory. It has not been [...] clinical laboratory testing.RAD, CHEST, 1 VIEW, NON [id number] 13:56:00Reason for exam:->edemaShould this be performed at the bedside?->YesFINAL REPORT Chest one view compared to December 30 Discussion: Ill-defined bilateral airspace opacities are worse since the previous study although this may reflect a lesser inspiratory effort. No gross effusion or pneumothorax. Signed: Karina Pugh Verified Date/Time : 05/12/2018 13:56:44 Reading Location: [address] Consult Reading Room CALCIUM, [id number] 06:58:00 Test Item Value Reference Range Comments CALCIUM IONIZED (BEAKER) (test mhwg=377) 1.11 mmol/L 1.12-1.27 PH, BLOOD (BEAKER) (test tzzz=1716) 7.36 [id number] 06:31:00 Test Item Value Reference Range Comments PHOSPHORUS (BEAKER) (test veqg=377) 2.9 mg/dL 2.3-4.7 [id number] 06:31:00 Test Item Value Reference Range Comments MAGNESIUM (BEAKER) (test phrt=616) 1.9 mg/dL 1.6-2.6 COMPREHENSIVE METABOLIC [id number] 06:31:00 Test Item Value Reference Range Comments TOTAL PROTEIN (BEAKER) 5.8 gm/dL 6.0-8.3 (test htrh=333) ALBUMIN (BEAKER) (test 4.0 g/dL 3.5-5.0 tvon=4440) ALKALINE PHOSPHATASE 124 U/L 40-150 (BEAKER) (test fhco=033) BILIRUBIN TOTAL (BEAKER) 4.3 mg/dL 0.2-1.2 (test ezwm=116) SODIUM (BEAKER) (test 128 meq/L 136-145 arvf=623) POTASSIUM (BEAKER) (test 3.9 meq/L 3.5-5.1 swbu=053) CHLORIDE (BEAKER) (test 92 meq/L 98-107 xnyx=664) CO2 (BEAKER) (test 26 meq/L 22-29 jexa=805) BLOOD UREA NITROGEN 21 mg/dL 7-21 (BEAKER) (test mrvf=556) CREATININE (BEAKER) (test 1.54 mg/dL 0.57-1.25 vkvd=278) GLUCOSE RANDOM (BEAKER) 113 mg/dL 70-105 (test zjsz=727) CALCIUM (BEAKER) (test 9.5 mg/dL 8.4-10.2 ndhj=970) AST (SGOT) (BEAKER) (test 16 U/L 5-34 eghr=263) ALT (SGPT) (BEAKER) (test 6 U/L 6-55 rfnb=698) EGFR (BEAKER) (test 48 mL/min/1.73 sq m ESTIMATED GFR IS NOT qghk=6672) ACCURATE CREATININE CLEARANCE IN PREDICTING GLOMERULAR FILTRATION RATE. ESTIMATED GFR IS NOT APPLICABLE FOR DIALYSIS PATIENTS. Specimen slightly ictericHEPATIC FUNCTION [id number] 06:31:00 Test Item Value Reference Range Comments TOTAL PROTEIN (BEAKER) (test lfir=760) 5.8 gm/dL 6.0-8.3 ALBUMIN (BEAKER) (test hdvx=0969) 4.0 g/dL 3.5-5.0 BILIRUBIN TOTAL (BEAKER) (test guls=903) 4.3 mg/dL 0.2-1.2 BILIRUBIN DIRECT (BEAKER) (test kaih=209) 2.3 mg/dL 0.1-0.5 ALKALINE PHOSPHATASE (BEAKER) (test yqmv=594) 124 U/L 40-150 AST (SGOT) (BEAKER) (test cxbb=228) 16 U/L 5-34 ALT (SGPT) (BEAKER) (test pjon=908) 6 U/L 6-55 Specimen slightly ictericPROTHROMBIN [id number] 06:16:00 Test Item Value Reference Range Comments PROTIME (BEAKER) (test rcjt=118) 22.3 seconds 11.7-14.7 INR (BEAKER) (test soag=572) 2.0 <=5.9 RECOMMENDED COUMADIN/WARFARIN INR THERAPY RANGESSTANDARD DOSE: 2.0 - 3.0 Includes: PROPHYLAXIS forvenous thrombosis, systemic embolization; TREATMENT for venous thrombosis and/or pulmonary embolus.HIGH RISK: Target INR is 2.5-3.5 for patients with mechanical heart valves.CBC W/PLT COUNT & AUTO [id number] 06:00:00 Test Item Value Reference Range Comments WHITE BLOOD CELL COUNT (BEAKER) (test jawi=795) 4.3 K/ L 3.5-10.5 RED BLOOD CELL COUNT (BEAKER) (test ypfm=828) 2.68 M/ L 4.63-6.08 HEMOGLOBIN (BEAKER) (test ldhz=038) 8.3 GM/DL 13.7-17.5 HEMATOCRIT (BEAKER) (test hmka=991) 25.0 % 40.1-51.0 MEAN CORPUSCULAR VOLUME (BEAKER) (test zpbt=657) 93.3 fL 79.0-92.2 MEAN CORPUSCULAR HEMOGLOBIN (BEAKER) (test 31.0 pg 25.7-32.2 qxfz=084) MEAN CORPUSCULAR HEMOGLOBIN CONC (BEAKER) (test 33.2 GM/DL 32.3-36.5 wtif=156) RED CELL DISTRIBUTION WIDTH (BEAKER) (test 17.4 % 11.6-14.4 zewe=032) PLATELET COUNT (BEAKER) (test qjmh=348) 57 K/CU MM 150-450 MEAN PLATELET VOLUME (BEAKER) (test stpe=798) 9.3 fL 9.4-12.4 NUCLEATED RED BLOOD CELLS (BEAKER) (test 0 /100 WBC 0-0 nhzf=482) NEUTROPHILS RELATIVE PERCENT (BEAKER) (test 61 % azfc=083) LYMPHOCYTES RELATIVE PERCENT (BEAKER) (test 14 % hysj=474) MONOCYTES RELATIVE PERCENT (BEAKER) (test 17 % mhpk=262) EOSINOPHILS RELATIVE PERCENT (BEAKER) (test 7 % drss=758) BASOPHILS RELATIVE PERCENT (BEAKER) (test 1 % vhqi=607) NEUTROPHILS ABSOLUTE COUNT (BEAKER) (test 2.62 K/ L 1.78-5.38 ovgh=745) LYMPHOCYTES ABSOLUTE COUNT (BEAKER) (test 0.59 K/ L 1.32-3.57 gwuh=389) MONOCYTES ABSOLUTE COUNT (BEAKER) (test zlxc=922) 0.73 K/ L 0.30-0.82 EOSINOPHILS ABSOLUTE COUNT (BEAKER) (test 0.29 K/ L 0.04-0.54 btby=579) BASOPHILS ABSOLUTE COUNT (BEAKER) (test rmud=986) 0.02 K/ L 0.01-0.08 IMMATURE GRANULOCYTES-RELATIVE PERCENT (BEAKER) 1 % 0-1 (test zcdf=3179) BLOOD [id number] 00:00:00 Test Item Value Reference Range Comments CULTURE (BEAKER) (test pdef=7061) No growth in 5 days BLOOD [id number] 00:00:00 Test Item Value Reference Range Comments CULTURE (BEAKER) (test gfpo=2461) No growth in 5 days OSMOLALITY, [id number] 18:16:00 Test Item Value Reference Range Comments OSMOLALITY URINE (BEAKER) (test orug=992) 312 mOsm/kg 40-1400 BODY FLUID CELL COUNT WITH [id number] 17:17:00 Test Item Value Reference Range Comments APPEARANCE FLUID (BEAKER) (test bywk=309) Clear Clear COLOR FLUID (BEAKER) (test gpny=885) Yellow Colorless, Straw RBC FLUID (BEAKER) (test sjfo=612) 150 /cu mm <=1 ADJUSTED WBC FLUID (BEAKER) (test rkli=9711) 72 /cu mm <=5 LINING CELLS (BEAKER) (test sheb=5220) 2 /cu mm <=1 NEUTROPHILS FLUID (BEAKER) (test rrbx=1341) 3 % LYMPHS FLUID (BEAKER) (test hzvk=108) 28 % MONO/MACROPHAGE FLUID (BEAKER) (test ofsw=424) 68 % EOSINOPHILS FLUID (BEAKER) (test iwdz=209) 1 % BASO FLUID (BEAKER) (test nhya=236) 0 % CONTAINER BODY FLUID (BEAKER) (test rdca=2653) EDTA Tube SODIUM, RANDOM [id number] 17:09:00 Test Item Value Reference Range Comments SODIUM URINE (BEAKER) (test sgsg=669) < meq/L Reference Range: No NormalsURINALYSIS W/ [id number] 17:08:00 Test Item Value Reference Range Comments COLOR (BEAKER) (test kemd=673) Yellow CLARITY (BEAKER) (test qzlc=869) Clear SPECIFIC GRAVITY UA (BEAKER) (test ijtr=121) 1.012 1.001-1.035 PH UA (BEAKER) (test pckg=547) 5.5 5.0-8.0 PROTEIN UA (BEAKER) (test vkap=972) Negative Negative GLUCOSE UA (BEAKER) (test pwzm=659) Negative Negative KETONES UA (BEAKER) (test qnre=492) Negative Negative BILIRUBIN UA (BEAKER) (test idxf=385) Negative Negative BLOOD UA (BEAKER) (test hysq=953) Negative Negative NITRITE UA (BEAKER) (test hity=314) Negative Negative LEUKOCYTE ESTERASE UA (BEAKER) (test ysqy=583) Negative Negative UROBILINOGEN UA (BEAKER) (test qmej=668) 2.0 mg/dL 0.2-1.0 RBC UA (BEAKER) (test vhbr=732) 0 /HPF WBC UA (BEAKER) (test ilyj=334) 1 /HPF MUCUS (BEAKER) (test nroa=5124) Rare HYALINE CASTS (BEAKER) (test jjao=840) 15 /LPF SOURCE(BEAKER) (test zbwg=4613) CREATININE, RANDOM [id number] 17:05:00 Test Item Value Reference Range Comments CREATININE URINE ([place]) (test woti=858) 116.1 mg/dL Reference Range: No NormalsPROTEIN, RANDOM [id number] 17:05:00 Test Item Value Reference Range Comments PROTEIN, URINE (BEAKER) (test pzty=5568) 7 mg/dL 0-14 RAD, SPINE, THORACIC, 2 [id number] 13:53:00Reason for exam:->back pain, s/p kyphoplastyFINAL REPORT [...] Aristeo Xiong Verified Date/Time: 13:53:06 Reading Location: [facility] [employer] Reading Room RAD, SPINE, LUMBAR, 2 OR 3 [id number] 13:53:00Reason for exam:->back pain, s/p kyphoplastyFINAL REPORT [...] Aristeo Xiongort Verified Date/Time: 13:53:06 Reading Location: [facility] [employer] Reading Room U/S, [id number] 12:52:00Limit to 4L due to AKIReason for exam:-> ascitesShould this be performed at the bedside?->NoFINAL REPORT Ultrasound guided paracentesis, 05/11/2018. Clinical History: Ascites. Sedation: None. Servicenow Administrator: Elle. Chief Of Harbor Patrol: None. Estimated Blood Loss: < 1 cc. [...] was achieved with 1% lidocaine, a 5 Portuguese one-step catheter was advanced into the peritoneal cavity under ultrasound guidance. After completion of drainage, the catheter was removed. There was no evidence of complication. Patient Disposition: The patient was discharged from the ultrasound department after the paracentesis, in good condition. Impression: Successful ultrasound guided paracentesis. Signed: Elizabeth Almeidaort Verified Date/Time: 05/11/2018 12:52:57 Reading Location: [address] Ultrasound Reading Room MISCELLANEOUS LAB [id number] 10:45:00 Test Item Value Reference Range Comments SCAN RESULT (test ggcm=[id number]) [id number] 07:31:00 Test Item Value Reference Range Comments PHOSPHORUS (BEAKER) (test lhsp=474) 2.7 mg/dL 2.3-4.7 [id number] 07:31:00 Test Item Value Reference Range Comments MAGNESIUM (BEAKER) (test uaiy=965) 1.8 mg/dL 1.6-2.6 COMPREHENSIVE METABOLIC [id number] 07:31:00 Test Item Value Reference Range Comments TOTAL PROTEIN (BEAKER) 5.5 gm/dL 6.0-8.3 (test vcjj=182) ALBUMIN (BEAKER) (test 3.5 g/dL 3.5-5.0 yzbw=3445) ALKALINE PHOSPHATASE 118 U/L 40-150 (BEAKER) (test fylo=578) BILIRUBIN TOTAL (BEAKER) 5.1 mg/dL 0.2-1.2 (test hkzb=460) SODIUM (BEAKER) (test 123 meq/L 136-145 keoy=271) POTASSIUM (BEAKER) (test 4.1 meq/L 3.5-5.1 qbbk=965) CHLORIDE (BEAKER) (test 91 meq/L 98-107 pgcy=391) CO2 (BEAKER) (test 25 meq/L 22-29 sjic=853) BLOOD UREA NITROGEN 21 mg/dL 7-21 (BEAKER) (test jtvs=632) CREATININE (BEAKER) (test 1.59 mg/dL 0.57-1.25 snzh=070) GLUCOSE RANDOM (BEAKER) 121 mg/dL 70-105 (test wbev=469) CALCIUM (BEAKER) (test 9.4 mg/dL 8.4-10.2 pvks=311) AST (SGOT) (BEAKER) (test 17 U/L 5-34 mdgz=703) ALT (SGPT) (BEAKER) (test 8 U/L 6-55 plww=345) EGFR (BEAKER) (test 46 mL/min/1.73 sq m ESTIMATED GFR IS NOT bzlg=7520) ACCURATE CREATININE CLEARANCE IN PREDICTING GLOMERULAR FILTRATION RATE. ESTIMATED GFR IS NOT APPLICABLE FOR DIALYSIS PATIENTS. Specimen moderately ictericHEPATIC FUNCTION [id number] 07:31:00 Test Item Value Reference Range Comments TOTAL PROTEIN (BEAKER) (test rxap=891) 5.5 gm/dL 6.0-8.3 ALBUMIN (BEAKER) (test ppvi=3388) 3.5 g/dL 3.5-5.0 BILIRUBIN TOTAL (BEAKER) (test lczx=188) 5.1 mg/dL 0.2-1.2 BILIRUBIN DIRECT (BEAKER) (test gzkw=486) 2.3 mg/dL 0.1-0.5 ALKALINE PHOSPHATASE (BEAKER) (test xxpw=289) 118 U/L 40-150 AST (SGOT) (BEAKER) (test emhj=442) 17 U/L 5-34 ALT (SGPT) (BEAKER) (test edxh=210) 8 U/L 6-55 Specimen moderately ictericPROTHROMBIN [id number] 07:17:00 Test Item Value Reference Range Comments PROTIME (BEAKER) (test hrep=353) 23.8 seconds 11.7-14.7 INR (BEAKER) (test vvvr=876) 2.1 <=5.9 RECOMMENDED COUMADIN/WARFARIN INR THERAPY RANGESSTANDARD DOSE: 2.0 - 3.0 Includes: PROPHYLAXIS forvenous thrombosis, systemic embolization; TREATMENT for venous thrombosis and/or pulmonary embolus.HIGH RISK: Target INR is 2.5-3.5 for patients with mechanical heart valves.CBC W/PLT COUNT & AUTO [id number] 07:15:00 Test Item Value Reference Range Comments WHITE BLOOD CELL COUNT (BEAKER) (test awpc=139) 4.4 K/ L 3.5-10.5 RED BLOOD CELL COUNT (BEAKER) (test snzi=068) 2.52 M/ L 4.63-6.08 HEMOGLOBIN (BEAKER) (test jsbv=760) 7.9 GM/DL 13.7-17.5 HEMATOCRIT (BEAKER) (test ulax=107) 23.7 % 40.1-51.0 MEAN CORPUSCULAR VOLUME (BEAKER) (test hpgb=941) 94.0 fL 79.0-92.2 MEAN CORPUSCULAR HEMOGLOBIN (BEAKER) (test 31.3 pg 25.7-32.2 gmgl=862) MEAN CORPUSCULAR HEMOGLOBIN CONC (BEAKER) (test 33.3 GM/DL 32.3-36.5 ihtn=206) RED CELL DISTRIBUTION WIDTH (BEAKER) (test 17.6 % 11.6-14.4 lsoi=615) PLATELET COUNT (BEAKER) (test lpng=281) 52 K/CU MM 150-450 MEAN PLATELET VOLUME (BEAKER) (test icwc=345) 9.2 fL 9.4-12.4 NUCLEATED RED BLOOD CELLS (BEAKER) (test 0 /100 WBC 0-0 axqt=022) NEUTROPHILS RELATIVE PERCENT (BEAKER) (test 62 % ahfz=662) LYMPHOCYTES RELATIVE PERCENT (BEAKER) (test 10 % iuwm=494) MONOCYTES RELATIVE PERCENT (BEAKER) (test 19 % nebu=836) EOSINOPHILS RELATIVE PERCENT (BEAKER) (test 8 % efvx=202) BASOPHILS RELATIVE PERCENT (BEAKER) (test 0 % iqkr=749) NEUTROPHILS ABSOLUTE COUNT (BEAKER) (test 2.72 K/ L 1.78-5.38 dejk=627) LYMPHOCYTES ABSOLUTE COUNT (BEAKER) (test 0.42 K/ L 1.32-3.57 jjwq=609) MONOCYTES ABSOLUTE COUNT (BEAKER) (test umit=628) 0.84 K/ L 0.30-0.82 EOSINOPHILS ABSOLUTE COUNT (BEAKER) (test 0.34 K/ L 0.04-0.54 zilz=083) BASOPHILS ABSOLUTE COUNT (BEAKER) (test oter=760) 0.00 K/ L 0.01-0.08 IMMATURE GRANULOCYTES-RELATIVE PERCENT (BEAKER) 1 % 0-1 (test axta=9464) CALCIUM, [id number] 07:09:00 Test Item Value Reference Range Comments CALCIUM IONIZED (BEAKER) (test ntlt=844) 1.09 mmol/L 1.12-1.27 PH, BLOOD (BEAKER) (test oinn=1092) 7.36 BASIC METABOLIC [id number] 17:49:00 Test Item Value Reference Range Comments SODIUM (BEAKER) (test 124 meq/L 136-145 hnyy=988) POTASSIUM (BEAKER) (test 3.8 meq/L 3.5-5.1 dnms=709) CHLORIDE (BEAKER) (test 91 meq/L 98-107 htep=791) CO2 (BEAKER) (test 22 meq/L 22-29 fmbo=553) BLOOD UREA NITROGEN 19 mg/dL 7-21 (BEAKER) (test syxo=686) CREATININE (BEAKER) (test 1.49 mg/dL 0.57-1.25 nvsn=133) GLUCOSE RANDOM (BEAKER) 105 mg/dL 70-105 (test bfek=923) CALCIUM (BEAKER) (test 9.3 mg/dL 8.4-10.2 jyys=830) EGFR (BEAKER) (test 50 mL/min/1.73 sq m ESTIMATED GFR IS NOT shtu=9995) ACCURATE CREATININE CLEARANCE IN PREDICTING GLOMERULAR FILTRATION RATE. ESTIMATED GFR IS NOT APPLICABLE FOR DIALYSIS PATIENTS. Call [id number] slightly ictericCALCIUM, [id number] 06:59:00 Test Item Value Reference Range Comments CALCIUM IONIZED (BEAKER) (test qyzc=831) 1.00 mmol/L 1.12-1.27 PH, BLOOD (BEAKER) (test lgmu=6655) 7.47 [id number] 05:42:00 Test Item Value Reference Range Comments PHOSPHORUS (BEAKER) (test hnsz=872) 2.7 mg/dL 2.3-4.7 [id number] 05:42:00 Test Item Value Reference Range Comments MAGNESIUM (BEAKER) (test nesp=664) 1.7 mg/dL 1.6-2.6 HEPATIC FUNCTION [id number] 05:42:00 Test Item Value Reference Range Comments TOTAL PROTEIN (BEAKER) (test efuw=436) 5.2 gm/dL 6.0-8.3 ALBUMIN (BEAKER) (test brwu=8034) 3.5 g/dL 3.5-5.0 BILIRUBIN TOTAL (BEAKER) (test pvrb=034) 3.4 mg/dL 0.2-1.2 BILIRUBIN DIRECT (BEAKER) (test vsbx=057) 1.8 mg/dL 0.1-0.5 ALKALINE PHOSPHATASE (BEAKER) (test fmxc=433) 106 U/L 40-150 AST (SGOT) (BEAKER) (test mzxg=517) 15 U/L 5-34 ALT (SGPT) (BEAKER) (test whkj=724) 7 U/L 6-55 Specimen slightly ictericPROTHROMBIN [id number] 05:22:00 Test Item Value Reference Range Comments PROTIME (BEAKER) (test pumb=182) 22.6 seconds 11.7-14.7 INR (BEAKER) (test fryg=450) 2.0 <=5.9 RECOMMENDED COUMADIN/WARFARIN INR THERAPY RANGESSTANDARD DOSE: 2.0 - 3.0 Includes: PROPHYLAXIS forvenous thrombosis, systemic embolization; TREATMENT for venous thrombosis and/or pulmonary embolus.HIGH RISK: Target INR is 2.5-3.5 for patients with mechanical heart valves.CBC W/PLT COUNT & AUTO [id number] 05:10:00 Test Item Value Reference Range Comments WHITE BLOOD CELL COUNT (BEAKER) (test zfln=395) 5.6 K/ L 3.5-10.5 RED BLOOD CELL COUNT (BEAKER) (test jnpv=486) 2.09 M/ L 4.63-6.08 HEMOGLOBIN (BEAKER) (test ynej=124) 6.5 GM/DL 13.7-17.5 HEMATOCRIT (BEAKER) (test uuif=200) 19.8 % 40.1-51.0 MEAN CORPUSCULAR VOLUME (BEAKER) (test fyxp=434) 94.7 fL 79.0-92.2 MEAN CORPUSCULAR HEMOGLOBIN (BEAKER) (test 31.1 pg 25.7-32.2 wuus=344) MEAN CORPUSCULAR HEMOGLOBIN CONC (BEAKER) (test 32.8 GM/DL 32.3-36.5 quvk=008) RED CELL DISTRIBUTION WIDTH (BEAKER) (test 17.3 % 11.6-14.4 wxbn=590) PLATELET COUNT (BEAKER) (test mxox=843) 57 K/CU MM 150-450 MEAN PLATELET VOLUME (BEAKER) (test ueyu=059) 8.9 fL 9.4-12.4 NUCLEATED RED BLOOD CELLS (BEAKER) (test 0 /100 WBC 0-0 rtlp=799) NEUTROPHILS RELATIVE PERCENT (BEAKER) (test 71 % kuyy=106) LYMPHOCYTES RELATIVE PERCENT (BEAKER) (test 9 % uipt=690) MONOCYTES RELATIVE PERCENT (BEAKER) (test 16 % eiji=471) EOSINOPHILS RELATIVE PERCENT (BEAKER) (test 3 % okwg=082) BASOPHILS RELATIVE PERCENT (BEAKER) (test 0 % jxhl=507) NEUTROPHILS ABSOLUTE COUNT (BEAKER) (test 3.93 K/ L 1.78-5.38 vxyp=990) LYMPHOCYTES ABSOLUTE COUNT (BEAKER) (test 0.52 K/ L 1.32-3.57 oagd=742) MONOCYTES ABSOLUTE COUNT (BEAKER) (test zaux=566) 0.87 K/ L 0.30-0.82 EOSINOPHILS ABSOLUTE COUNT (BEAKER) (test 0.19 K/ L 0.04-0.54 jhkm=874) BASOPHILS ABSOLUTE COUNT (BEAKER) (test teqb=025) 0.01 K/ L 0.01-0.08 IMMATURE GRANULOCYTES-RELATIVE PERCENT (BEAKER) 1 % 0-1 (test hwoj=8201) HEPATIC FUNCTION [id number] 11:05:00 Test Item Value Reference Range Comments TOTAL PROTEIN (BEAKER) (test eymt=935) 5.7 gm/dL 6.0-8.3 ALBUMIN (BEAKER) (test dblx=8724) 3.9 g/dL 3.5-5.0 BILIRUBIN TOTAL (BEAKER) (test nrjq=431) 4.9 mg/dL 0.2-1.2 BILIRUBIN DIRECT (BEAKER) (test zilr=380) 2.0 mg/dL 0.1-0.5 ALKALINE PHOSPHATASE (BEAKER) (test smde=999) 98 U/L 40-150 AST (SGOT) (BEAKER) (test vtij=226) 19 U/L 5-34 ALT (SGPT) (BEAKER) (test dudv=426) 8 U/L 6-55 Specimen moderately ictericBASIC METABOLIC [id number] 10:06:00 Test Item Value Reference Range Comments SODIUM (BEAKER) (test 132 meq/L 136-145 vdwm=312) POTASSIUM (BEAKER) (test 5.0 meq/L 3.5-5.1 ktks=700) CHLORIDE (BEAKER) (test 97 meq/L 98-107 qjkv=690) CO2 (BEAKER) (test 25 meq/L 22-29 bwjd=720) BLOOD UREA NITROGEN 17 mg/dL 7-21 (BEAKER) (test bkmp=635) CREATININE (BEAKER) (test 1.33 mg/dL 0.57-1.25 wmgo=460) GLUCOSE RANDOM (BEAKER) 181 mg/dL 70-105 (test jugw=166) CALCIUM (BEAKER) (test 9.4 mg/dL 8.4-10.2 wisv=751) EGFR (BEAKER) (test 56 mL/min/1.73 sq m ESTIMATED GFR IS NOT cyes=2854) ACCURATE CREATININE CLEARANCE IN PREDICTING GLOMERULAR FILTRATION RATE. ESTIMATED GFR IS NOT APPLICABLE FOR DIALYSIS PATIENTS. Specimen moderately ictericCBC W/PLT COUNT & AUTO [id number] 07: 45:00 Test Item Value Reference Range Comments WHITE BLOOD CELL COUNT (BEAKER) (test omfp=132) 3.4 K/ L 3.5-10.5 RED BLOOD CELL COUNT (BEAKER) (test owhc=969) 2.26 M/ L 4.63-6.08 HEMOGLOBIN (BEAKER) (test qhkr=132) 7.0 GM/DL 13.7-17.5 HEMATOCRIT (BEAKER) (test cblt=007) 21.6 % 40.1-51.0 MEAN CORPUSCULAR VOLUME (BEAKER) (test mpfd=520) 95.6 fL 79.0-92.2 MEAN CORPUSCULAR HEMOGLOBIN (BEAKER) (test 31.0 pg 25.7-32.2 ykkg=427) MEAN CORPUSCULAR HEMOGLOBIN CONC (BEAKER) (test 32.4 GM/DL 32.3-36.5 mczf=400) RED CELL DISTRIBUTION WIDTH (BEAKER) (test 17.3 % 11.6-14.4 fwgi=881) PLATELET COUNT (BEAKER) (test irbu=156) 66 K/CU MM 150-450 MEAN PLATELET VOLUME (BEAKER) (test hetn=855) 9.8 fL 9.4-12.4 NUCLEATED RED BLOOD CELLS (BEAKER) (test 0 /100 WBC 0-0 jrjx=445) NEUTROPHILS RELATIVE PERCENT (BEAKER) (test 87 % xopa=355) LYMPHOCYTES RELATIVE PERCENT (BEAKER) (test 7 % uydy=944) MONOCYTES RELATIVE PERCENT (BEAKER) (test 5 % ndxc=250) EOSINOPHILS RELATIVE PERCENT (BEAKER) (test 0 % rxka=415) BASOPHILS RELATIVE PERCENT (BEAKER) (test 0 % qqvf=832) NEUTROPHILS ABSOLUTE COUNT (BEAKER) (test 2.94 K/ L 1.78-5.38 dydt=521) LYMPHOCYTES ABSOLUTE COUNT (BEAKER) (test 0.23 K/ L 1.32-3.57 xecf=352) MONOCYTES ABSOLUTE COUNT (BEAKER) (test vruf=933) 0.17 K/ L 0.30-0.82 EOSINOPHILS ABSOLUTE COUNT (BEAKER) (test 0.00 K/ L 0.04-0.54 wtou=774) BASOPHILS ABSOLUTE COUNT (BEAKER) (test jwap=106) 0.00 K/ L 0.01-0.08 IMMATURE GRANULOCYTES-RELATIVE PERCENT (BEAKER) 1 % 0-1 (test aovv=0831) PROTHROMBIN [id number] 06:06:00 Test Item Value Reference Range Comments PROTIME (BEAKER) (test clea=941) 19.1 seconds 11.7-14.7 INR (BEAKER) (test fsfb=571) 1.6 <=5.9 RECOMMENDED COUMADIN/WARFARIN INR THERAPY RANGESSTANDARD DOSE: 2.0 - 3.0 Includes: PROPHYLAXIS forvenous thrombosis, systemic embolization; TREATMENT for venous thrombosis and/or pulmonary embolus.HIGH RISK: Target INR is 2.5-3.5 for patients with mechanical heart valves.PT/[id number] 15:35:00 Test Item Value Reference Range Comments PROTIME (BEAKER) (test dbda=949) 20.3 seconds 11.7-14.7 INR (BEAKER) (test qnhx=478) 1.7 <=5.9 PARTIAL THROMBOPLASTIN TIME (BEAKER) (test 46.2 seconds 22.5-36.0 xokz=749) RECOMMENDED COUMADIN/WARFARIN INR THERAPY RANGESSTANDARD DOSE: 2.0 - 3.0 Includes: PROPHYLAXIS forvenous thrombosis, systemic embolization; TREATMENT for venous thrombosis and/or pulmonary embolus.HIGH RISK: Target INR is 2.5-3.5 for patients with mechanical heart valves.30 minutes after administration of Zznrrcv86 minutes after administration of KcentraPROTHROMBIN TIME/[id number] 15:33:00 Test Item Value Reference Range Comments PROTIME (BEAKER) (test sktu=926) 20.1 seconds 11.7-14.7 INR (BEAKER) (test cuch=436) 1.7 <=5.9 RECOMMENDED COUMADIN/WARFARIN INR THERAPY RANGESSTANDARD DOSE: 2.0 - 3.0 Includes: PROPHYLAXIS forvenous thrombosis, systemic embolization; TREATMENT for venous thrombosis and/or pulmonary embolus.HIGH RISK: Target INR is 2.5-3.5 for patients with mechanical heart valves.Please draw 30 mins after Kcentra doseBODY FLUID CULTURE + GRAM [id number] 11:29:00 Test Item Value Reference Range Comments CULTURE (BEAKER) (test dsfo=6099) No growth GRAM STAIN RESULT (BEAKER) (test <1+ WBCs qviz=5466) GRAM STAIN RESULT (BEAKER) (test No organisms seen fbit=87725) CT, [id number] 10:30:00FINAL REPORT HISTORY : r/o intra abdominal [...] MDReport Verified Date/Time: 05/08/2018 10:30:57 Reading Location: [facility] Diagnostic Imaging Reading Room - [place] [address] CBC W/PLT COUNT & AUTO [id number] 07:27:00 Test Item Value Reference Range Comments WHITE BLOOD CELL COUNT (BEAKER) (test htjc=831) 3.1 K/ L 3.5-10.5 RED BLOOD CELL COUNT (BEAKER) (test oyxc=182) 2.27 M/ L 4.63-6.08 HEMOGLOBIN (BEAKER) (test uhxn=039) 7.1 GM/DL 13.7-17.5 HEMATOCRIT (BEAKER) (test xamk=523) 21.4 % 40.1-51.0 MEAN CORPUSCULAR VOLUME (BEAKER) (test proj=948) 94.3 fL 79.0-92.2 MEAN CORPUSCULAR HEMOGLOBIN (BEAKER) (test 31.3 pg 25.7-32.2 scut=193) MEAN CORPUSCULAR HEMOGLOBIN CONC (BEAKER) (test 33.2 GM/DL 32.3-36.5 kxug=968) RED CELL DISTRIBUTION WIDTH (BEAKER) (test 17.5 % 11.6-14.4 kghd=754) PLATELET COUNT (BEAKER) (test phvz=888) 43 K/CU MM 150-450 MEAN PLATELET VOLUME (BEAKER) (test gmvx=986) 8.7 fL 9.4-12.4 NUCLEATED RED BLOOD CELLS (BEAKER) (test 0 /100 WBC 0-0 eqoj=155) NEUTROPHILS RELATIVE PERCENT (BEAKER) (test 60 % sggq=691) LYMPHOCYTES RELATIVE PERCENT (BEAKER) (test 16 % ybpt=773) MONOCYTES RELATIVE PERCENT (BEAKER) (test 17 % kskw=410) EOSINOPHILS RELATIVE PERCENT (BEAKER) (test 7 % brcj=881) BASOPHILS RELATIVE PERCENT (BEAKER) (test 0 % wxft=564) NEUTROPHILS ABSOLUTE COUNT (BEAKER) (test 1.85 K/ L 1.78-5.38 hvxt=473) LYMPHOCYTES ABSOLUTE COUNT (BEAKER) (test 0.48 K/ L 1.32-3.57 fdfr=775) MONOCYTES ABSOLUTE COUNT (BEAKER) (test wyox=967) 0.54 K/ L 0.30-0.82 EOSINOPHILS ABSOLUTE COUNT (BEAKER) (test 0.22 K/ L 0.04-0.54 rjpe=939) BASOPHILS ABSOLUTE COUNT (BEAKER) (test bsbg=560) 0.00 K/ L 0.01-0.08 IMMATURE GRANULOCYTES-RELATIVE PERCENT (BEAKER) 0 % 0-1 (test xmwz=7172) CBC W/PLT COUNT & AUTO [id number] 07:26:00 Test Item Value Reference Range Comments WHITE BLOOD CELL COUNT (BEAKER) (test rdpk=114) 2.9 K/ L 3.5-10.5 RED BLOOD CELL COUNT (BEAKER) (test ioxv=283) 2.25 M/ L 4.63-6.08 HEMOGLOBIN (BEAKER) (test kbcv=777) 7.1 GM/DL 13.7-17.5 HEMATOCRIT (BEAKER) (test nuyx=331) 21.4 % 40.1-51.0 MEAN CORPUSCULAR VOLUME (BEAKER) (test wngs=579) 95.1 fL 79.0-92.2 MEAN CORPUSCULAR HEMOGLOBIN (BEAKER) (test 31.6 pg 25.7-32.2 sote=961) MEAN CORPUSCULAR HEMOGLOBIN CONC (BEAKER) (test 33.2 GM/DL 32.3-36.5 pcvd=411) RED CELL DISTRIBUTION WIDTH (BEAKER) (test 17.5 % 11.6-14.4 nspw=155) PLATELET COUNT (BEAKER) (test hlzm=866) 44 K/CU MM 150-450 MEAN PLATELET VOLUME (BEAKER) (test eohv=180) 9.3 fL 9.4-12.4 NUCLEATED RED BLOOD CELLS (BEAKER) (test 0 /100 WBC 0-0 tegs=542) NEUTROPHILS RELATIVE PERCENT (BEAKER) (test 59 % mjvm=981) LYMPHOCYTES RELATIVE PERCENT (BEAKER) (test 16 % siiw=508) MONOCYTES RELATIVE PERCENT (BEAKER) (test 17 % olsw=813) EOSINOPHILS RELATIVE PERCENT (BEAKER) (test 7 % dirw=754) BASOPHILS RELATIVE PERCENT (BEAKER) (test 0 % yvmr=710) NEUTROPHILS ABSOLUTE COUNT (BEAKER) (test 1.72 K/ L 1.78-5.38 qxvk=794) LYMPHOCYTES ABSOLUTE COUNT (BEAKER) (test 0.46 K/ L 1.32-3.57 cbfh=767) MONOCYTES ABSOLUTE COUNT (BEAKER) (test jhkl=098) 0.51 K/ L 0.30-0.82 EOSINOPHILS ABSOLUTE COUNT (BEAKER) (test 0.21 K/ L 0.04-0.54 thur=452) BASOPHILS ABSOLUTE COUNT (BEAKER) (test vmrx=517) 0.01 K/ L 0.01-0.08 IMMATURE GRANULOCYTES-RELATIVE PERCENT (BEAKER) 1 % 0-1 (test fhwf=9007) BASIC METABOLIC [id number] 07:00:00 Test Item Value Reference Range Comments SODIUM (BEAKER) (test 130 meq/L 136-145 fyqr=201) POTASSIUM (BEAKER) (test 3.6 meq/L 3.5-5.1 oees=476) CHLORIDE (BEAKER) (test 94 meq/L 98-107 rylj=444) CO2 (BEAKER) (test 27 meq/L 22-29 uafr=316) BLOOD UREA NITROGEN 19 mg/dL 7-21 (BEAKER) (test odsi=555) CREATININE (BEAKER) (test 1.40 mg/dL 0.57-1.25 fsxz=294) GLUCOSE RANDOM (BEAKER) 111 mg/dL 70-105 (test vxyk=242) CALCIUM (BEAKER) (test 9.2 mg/dL 8.4-10.2 hwpt=001) EGFR (BEAKER) (test 53 mL/min/1.73 sq m ESTIMATED GFR IS NOT vcpx=3507) ACCURATE CREATININE CLEARANCE IN PREDICTING GLOMERULAR FILTRATION RATE. ESTIMATED GFR IS NOT APPLICABLE FOR DIALYSIS PATIENTS. Specimen moderately ictericCOMPREHENSIVE METABOLIC [id number] 07:00:00 Test Item Value Reference Range Comments TOTAL PROTEIN (BEAKER) 5.7 gm/dL 6.0-8.3 (test mlwk=899) ALBUMIN (BEAKER) (test 4.0 g/dL 3.5-5.0 uurx=0410) ALKALINE PHOSPHATASE 92 U/L 40-150 (BEAKER) (test eopd=463) BILIRUBIN TOTAL (BEAKER) 4.6 mg/dL 0.2-1.2 (test kpyy=509) SODIUM (BEAKER) (test 130 meq/L 136-145 kvok=881) POTASSIUM (BEAKER) (test 3.6 meq/L 3.5-5.1 fvzx=127) CHLORIDE (BEAKER) (test 94 meq/L 98-107 koeb=390) CO2 (BEAKER) (test 27 meq/L 22-29 fxoc=322) BLOOD UREA NITROGEN 19 mg/dL 7-21 (BEAKER) (test spbr=819) CREATININE (BEAKER) (test 1.40 mg/dL 0.57-1.25 febf=196) GLUCOSE RANDOM (BEAKER) 111 mg/dL 70-105 (test rnrn=228) CALCIUM (BEAKER) (test 9.2 mg/dL 8.4-10.2 fslw=515) AST (SGOT) (BEAKER) (test 16 U/L 5-34 uxyy=080) ALT (SGPT) (BEAKER) (test 6 U/L 6-55 kvjs=886) EGFR (BEAKER) (test 53 mL/min/1.73 sq m ESTIMATED GFR IS NOT mbhi=5089) ACCURATE CREATININE CLEARANCE IN PREDICTING GLOMERULAR FILTRATION RATE. ESTIMATED GFR IS NOT APPLICABLE FOR DIALYSIS PATIENTS. Specimen moderately ictericHEPATIC FUNCTION [id number] 07:00:00 Test Item Value Reference Range Comments TOTAL PROTEIN (BEAKER) (test vibd=319) 5.7 gm/dL 6.0-8.3 ALBUMIN (BEAKER) (test kyyf=5551) 4.0 g/dL 3.5-5.0 BILIRUBIN TOTAL (BEAKER) (test zmjt=810) 4.6 mg/dL 0.2-1.2 BILIRUBIN DIRECT (BEAKER) (test ioir=855) 1.8 mg/dL 0.1-0.5 ALKALINE PHOSPHATASE (BEAKER) (test nupb=396) 92 U/L 40-150 AST (SGOT) (BEAKER) (test tmag=852) 16 U/L 5-34 ALT (SGPT) (BEAKER) (test crjf=808) 6 U/L 6-55 Specimen moderately [id number] 06:57:00 Test Item Value Reference Range Comments PARTIAL THROMBOPLASTIN TIME (BEAKER) (test 47.9 seconds 22.5-36.0 grmp=962) PROTHROMBIN [id number] 06:55:00 Test Item Value Reference Range Comments PROTIME (BEAKER) (test aagn=043) 23.7 seconds 11.7-14.7 INR (BEAKER) (test nuiw=001) 2.1 <=5.9 RECOMMENDED COUMADIN/WARFARIN INR THERAPY RANGESSTANDARD DOSE: 2.0 - 3.0 Includes: PROPHYLAXIS forvenous thrombosis, systemic embolization; TREATMENT for venous thrombosis and/or pulmonary embolus.HIGH RISK: Target INR is 2.5-3.5 for patients with mechanical heart valves.MR, SPINE, LUMBAR, WITHOUT [id number] 16:57:00FINAL REPORT MRI lumbar spine without contrast [...] Bain Verified Date/Time: 05/07/2018 16:57:00 Reading Location: [facility] Radiology Reading Room LACTIC ACID, VENOUS, WHOLE [id number] 14:13:00 Test Item Value Reference Range Comments LACTATE BLOOD VENOUS (2) (BEAKER) (test 2.6 mmol/L 0.5-2.2 oxnd=7640) Effective 02/28/2016: Units/Reference Range ChangeNew: 0.5-2.2 mmol/L Previous: 5 -20 mg/dLSpecimen slightly ictericHEMOGLOBIN AND [id number] 13:51:00 Test Item Value Reference Range Comments HEMOGLOBIN (BEAKER) (test pxwm=078) 7.1 GM/DL 13.7-17.5 HEMATOCRIT (BEAKER) (test xjwj=629) 21.7 % 40.1-51.0 U/S, RENAL, [id number] 09:48:00Reason for exam:->AKIFINAL REPORT Renal ultrasound Clinical [...] MDReport Verified Date/Time: 05/07/2018 09:48:55 Reading Location: [address] Ultrasound Reading Room Electronically signed by: REECE HAQUE MD on 09:[id number] 09:04:00 Test Item Value Reference Range Comments MAGNESIUM (BEAKER) (test nyeu=965) 2.0 mg/dL 1.6-2.6 COMPREHENSIVE METABOLIC [id number] 09:04:00 Test Item Value Reference Range Comments TOTAL PROTEIN (BEAKER) 5.2 gm/dL 6.0-8.3 (test ozzv=604) ALBUMIN (BEAKER) (test 3.5 g/dL 3.5-5.0 taiw=4820) ALKALINE PHOSPHATASE 96 U/L 40-150 (BEAKER) (test siyj=035) BILIRUBIN TOTAL (BEAKER) 4.1 mg/dL 0.2-1.2 (test cvvn=207) SODIUM (BEAKER) (test 129 meq/L 136-145 yngt=681) POTASSIUM (BEAKER) (test 3.8 meq/L 3.5-5.1 pnok=610) CHLORIDE (BEAKER) (test 96 meq/L 98-107 btrz=873) CO2 (BEAKER) (test 25 meq/L 22-29 kkft=467) BLOOD UREA NITROGEN 22 mg/dL 7-21 (BEAKER) (test cyma=409) CREATININE (BEAKER) (test 1.57 mg/dL 0.57-1.25 btbr=096) GLUCOSE RANDOM (BEAKER) 122 mg/dL 70-105 (test iilr=064) CALCIUM (BEAKER) (test 8.9 mg/dL 8.4-10.2 xaen=904) AST (SGOT) (BEAKER) (test 15 U/L 5-34 vtjk=569) ALT (SGPT) (BEAKER) (test 7 U/L 6-55 nacn=000) EGFR (BEAKER) (test 47 mL/min/1.73 sq m ESTIMATED GFR IS NOT pjgv=0995) ACCURATE CREATININE CLEARANCE IN PREDICTING GLOMERULAR FILTRATION RATE. ESTIMATED GFR IS NOT APPLICABLE FOR DIALYSIS PATIENTS. Specimen moderately ictericHEPATIC FUNCTION [id number] 09:04:00 Test Item Value Reference Range Comments TOTAL PROTEIN (BEAKER) (test vfej=342) 5.2 gm/dL 6.0-8.3 ALBUMIN (BEAKER) (test blxy=2032) 3.5 g/dL 3.5-5.0 BILIRUBIN TOTAL (BEAKER) (test xcmd=031) 4.1 mg/dL 0.2-1.2 BILIRUBIN DIRECT (BEAKER) (test idup=804) 1.8 mg/dL 0.1-0.5 ALKALINE PHOSPHATASE (BEAKER) (test jfjv=085) 96 U/L 40-150 AST (SGOT) (BEAKER) (test tqey=130) 15 U/L 5-34 ALT (SGPT) (BEAKER) (test xtgu=737) 7 U/L 6-55 Specimen moderately ictericCBC W/PLT COUNT & AUTO [id number] 08: 26:00 Test Item Value Reference Range Comments WHITE BLOOD CELL COUNT (BEAKER) (test zuzm=109) 2.7 K/ L 3.5-10.5 RED BLOOD CELL COUNT (BEAKER) (test gyym=690) 2.13 M/ L 4.63-6.08 HEMOGLOBIN (BEAKER) (test qutk=347) 6.8 GM/DL 13.7-17.5 HEMATOCRIT (BEAKER) (test aqdp=365) 19.5 % 40.1-51.0 MEAN CORPUSCULAR VOLUME (BEAKER) (test hctl=996) 91.5 fL 79.0-92.2 MEAN CORPUSCULAR HEMOGLOBIN (BEAKER) (test 31.9 pg 25.7-32.2 ahhn=489) MEAN CORPUSCULAR HEMOGLOBIN CONC (BEAKER) (test 34.9 GM/DL 32.3-36.5 wceo=799) RED CELL DISTRIBUTION WIDTH (BEAKER) (test 17.5 % 11.6-14.4 qapj=044) PLATELET COUNT (BEAKER) (test umke=582) 52 K/CU MM 150-450 MEAN PLATELET VOLUME (BEAKER) (test acxf=626) 9.1 fL 9.4-12.4 NUCLEATED RED BLOOD CELLS (BEAKER) (test 0 /100 WBC 0-0 xiqs=803) NEUTROPHILS RELATIVE PERCENT (BEAKER) (test 62 % hsxo=170) LYMPHOCYTES RELATIVE PERCENT (BEAKER) (test 16 % iypu=318) MONOCYTES RELATIVE PERCENT (BEAKER) (test 17 % csms=355) EOSINOPHILS RELATIVE PERCENT (BEAKER) (test 4 % vjpv=394) BASOPHILS RELATIVE PERCENT (BEAKER) (test 0 % gtak=209) NEUTROPHILS ABSOLUTE COUNT (BEAKER) (test 1.66 K/ L 1.78-5.38 wwpe=985) LYMPHOCYTES ABSOLUTE COUNT (BEAKER) (test 0.43 K/ L 1.32-3.57 ubqn=726) MONOCYTES ABSOLUTE COUNT (BEAKER) (test rtue=121) 0.44 K/ L 0.30-0.82 EOSINOPHILS ABSOLUTE COUNT (BEAKER) (test 0.11 K/ L 0.04-0.54 etji=011) BASOPHILS ABSOLUTE COUNT (BEAKER) (test trmi=194) 0.00 K/ L 0.01-0.08 IMMATURE GRANULOCYTES-RELATIVE PERCENT (BEAKER) 1 % 0-1 (test ilao=2327) PROTHROMBIN [id number] 08:08:00 Test Item Value Reference Range Comments PROTIME (BEAKER) (test vysa=203) 28.3 seconds 11.7-14.7 INR (BEAKER) (test yszi=387) 2.7 <=5.9 RECOMMENDED COUMADIN/WARFARIN INR THERAPY RANGESSTANDARD DOSE: 2.0 - 3.0 Includes: PROPHYLAXIS forvenous thrombosis, systemic embolization; TREATMENT for venous thrombosis and/or pulmonary embolus.HIGH RISK: Target INR is 2.5-3.5 for patients with mechanical heart valves.[id number] 19:47:00 Test Item Value Reference Range Comments SODIUM (BEAKER) (test lgmb=042) 129 meq/L 136-145 POTASSIUM (BEAKER) (test xaxm=567) 4.6 meq/L 3.5-5.1 CHLORIDE (BEAKER) (test ghtu=511) 96 meq/L 98-107 CO2 (BEAKER) (test xvjh=741) 22 meq/L 22-29 Call [id number] AND [id number] 19:27:00 Test Item Value Reference Range Comments HEMOGLOBIN (BEAKER) (test aahx=930) 7.1 GM/DL 13.7-17.5 HEMATOCRIT (BEAKER) (test bdhz=799) 21.4 % 40.1-51.0 Draw after transfusion of 1u RBC, notify hospitalist if Hgb remains less than 7.0HEMOGLOBIN AND [id number] 11:52:00 Test Item Value Reference Range Comments HEMOGLOBIN (BEAKER) (test tjbz=055) 6.3 GM/DL 13.7-17.5 HEMATOCRIT (BEAKER) (test ixdx=605) 18.9 % 40.1-51.0 Notify Hepatology if Hgb< 7.0YUNIOR Sandoval PA-CPager#: [phone].BASIC METABOLIC [id number] 05:55:00 Test Item Value Reference Range Comments SODIUM (BEAKER) (test 129 meq/L 136-145 dsrc=134) POTASSIUM (BEAKER) (test 5.2 meq/L 3.5-5.1 fcvt=956) CHLORIDE (BEAKER) (test 97 meq/L 98-107 przk=019) CO2 (BEAKER) (test 22 meq/L 22-29 qtfa=697) BLOOD UREA NITROGEN 28 mg/dL 7-21 (BEAKER) (test trxm=300) CREATININE (BEAKER) (test 1.95 mg/dL 0.57-1.25 gkzd=756) GLUCOSE RANDOM (BEAKER) 102 mg/dL 70-105 (test eyyq=875) CALCIUM (BEAKER) (test 9.4 mg/dL 8.4-10.2 feee=235) EGFR (BEAKER) (test 36 mL/min/1.73 sq m ESTIMATED GFR IS NOT imhv=6590) ACCURATE CREATININE CLEARANCE IN PREDICTING GLOMERULAR FILTRATION RATE. ESTIMATED GFR IS NOT APPLICABLE FOR DIALYSIS PATIENTS. Specimen slightly ictericHEPATIC FUNCTION [id number] 05:55:00 Test Item Value Reference Range Comments TOTAL PROTEIN (BEAKER) (test aufg=685) 5.6 gm/dL 6.0-8.3 ALBUMIN (BEAKER) (test hnst=8348) 3.4 g/dL 3.5-5.0 BILIRUBIN TOTAL (BEAKER) (test mkti=833) 3.7 mg/dL 0.2-1.2 BILIRUBIN DIRECT (BEAKER) (test yiao=306) 2.5 mg/dL 0.1-0.5 ALKALINE PHOSPHATASE (BEAKER) (test qoxr=522) 108 U/L 40-150 AST (SGOT) (BEAKER) (test ojfo=966) 17 U/L 5-34 ALT (SGPT) (BEAKER) (test zfij=850) 7 U/L 6-55 Specimen slightly ictericCBC W/PLT COUNT & AUTO [id number] 05:42 :00 Test Item Value Reference Range Comments WHITE BLOOD CELL COUNT (BEAKER) (test kkyl=091) 3.7 K/ L 3.5-10.5 RED BLOOD CELL COUNT (BEAKER) (test bwnh=863) 2.10 M/ L 4.63-6.08 HEMOGLOBIN (BEAKER) (test kjpk=158) 6.5 GM/DL 13.7-17.5 HEMATOCRIT (BEAKER) (test xeyh=292) 19.8 % 40.1-51.0 MEAN CORPUSCULAR VOLUME (BEAKER) (test ydug=948) 94.3 fL 79.0-92.2 MEAN CORPUSCULAR HEMOGLOBIN (BEAKER) (test 31.0 pg 25.7-32.2 nznr=020) MEAN CORPUSCULAR HEMOGLOBIN CONC (BEAKER) (test 32.8 GM/DL 32.3-36.5 hwxg=191) RED CELL DISTRIBUTION WIDTH (BEAKER) (test 16.4 % 11.6-14.4 ukif=832) PLATELET COUNT (BEAKER) (test oyka=336) 54 K/CU MM 150-450 MEAN PLATELET VOLUME (BEAKER) (test irsf=272) 9.8 fL 9.4-12.4 NUCLEATED RED BLOOD CELLS (BEAKER) (test 0 /100 WBC 0-0 ykar=999) NEUTROPHILS RELATIVE PERCENT (BEAKER) (test 62 % zcny=431) LYMPHOCYTES RELATIVE PERCENT (BEAKER) (test 15 % rgdb=729) MONOCYTES RELATIVE PERCENT (BEAKER) (test 18 % fbjo=847) EOSINOPHILS RELATIVE PERCENT (BEAKER) (test 3 % uroz=034) BASOPHILS RELATIVE PERCENT (BEAKER) (test 0 % ormx=636) NEUTROPHILS ABSOLUTE COUNT (BEAKER) (test 2.27 K/ L 1.78-5.38 tkyq=347) LYMPHOCYTES ABSOLUTE COUNT (BEAKER) (test 0.56 K/ L 1.32-3.57 slbr=293) MONOCYTES ABSOLUTE COUNT (BEAKER) (test przr=586) 0.66 K/ L 0.30-0.82 EOSINOPHILS ABSOLUTE COUNT (BEAKER) (test 0.12 K/ L 0.04-0.54 lvup=762) BASOPHILS ABSOLUTE COUNT (BEAKER) (test bbur=813) 0.01 K/ L 0.01-0.08 IMMATURE GRANULOCYTES-RELATIVE PERCENT (BEAKER) 1 % 0-1 (test motv=1412) PROTHROMBIN [id number] 05:34:00 Test Item Value Reference Range Comments PROTIME (BEAKER) (test mraz=457) 21.7 seconds 11.7-14.7 INR (BEAKER) (test sxtr=035) 1.9 <=5.9 RECOMMENDED COUMADIN/WARFARIN INR THERAPY RANGESSTANDARD DOSE: 2.0 - 3.0 Includes: PROPHYLAXIS forvenous thrombosis, systemic embolization; TREATMENT for venous thrombosis and/or pulmonary embolus.HIGH RISK: Target INR is 2.5-3.5 for patients with mechanical heart valves.EOSINOPHIL SMEAR, [id number] 21: 51:00 Test Item Value Reference Range Comments EOSINOPHIL SMEAR, URINE (BEAKER) (test No EOS seen No EOS seen uqqk=9858) BODY FLUID CELL COUNT WITH [id number] 21:42:00 Test Item Value Reference Range Comments APPEARANCE FLUID (BEAKER) (test mcvb=779) Hazy Clear COLOR FLUID (BEAKER) (test iyhb=506) Yellow Colorless, Straw RBC FLUID (BEAKER) (test uapu=176) 70 /cu mm <=1 ADJUSTED WBC FLUID (BEAKER) (test edcj=9168) 44 /cu mm <=5 LINING CELLS (BEAKER) (test bhfc=5474) 8 /cu mm <=1 NEUTROPHILS FLUID (BEAKER) (test quag=5349) 0 % LYMPHS FLUID (BEAKER) (test wula=129) 11 % MONO/MACROPHAGE FLUID (BEAKER) (test oerx=525) 89 % EOSINOPHILS FLUID (BEAKER) (test snxg=116) 0 % BASO FLUID (BEAKER) (test gxxc=301) 0 % CONTAINER BODY FLUID (BEAKER) (test btoh=3246) EDTA Tube OSMOLALITY, [id number] 19:46:00 Test Item Value Reference Range Comments OSMOLALITY URINE (BEAKER) (test lboz=842) 355 mOsm/kg 40-1400 SODIUM, RANDOM [id number] 19:35:00 Test Item Value Reference Range Comments SODIUM URINE (BEAKER) (test vblj=163) < meq/L Reference Range: No NormalsPROTEIN, RANDOM [id number] 19:27:00 Test Item Value Reference Range Comments PROTEIN, URINE (BEAKER) (test hnou=4725) 7 mg/dL 0-14 CREATININE, RANDOM [id number] 19:25:00 Test Item Value Reference Range Comments CREATININE URINE (BEAKER) (test tqkn=307) 150.3 mg/dL Reference Range: No [id number] 16:26:00 Test Item Value Reference Range Comments PREALBUMIN (BEAKER) (test jfaw=161) 5 mg/dL 14-45 Listed for OLT - Nutrition Surveillance ([facility] Hepatology Transplant Team)U/S, [id number] 14:56:00Reason for exam:->ascites - limit to 5L [...] MDReport Verified Date/Time: 05/05/2018 14:56:27 Reading Location: [address] Ultrasound Reading Room BASIC METABOLIC [id number] 09:36:00 Test Item Value Reference Range Comments SODIUM (BEAKER) (test 125 meq/L 136-145 wuap=395) POTASSIUM (BEAKER) (test 4.2 meq/L 3.5-5.1 xlbk=135) CHLORIDE (BEAKER) (test 95 meq/L 98-107 jsbr=243) CO2 (BEAKER) (test 23 meq/L 22-29 wafb=689) BLOOD UREA NITROGEN 29 mg/dL 7-21 (BEAKER) (test pphq=331) CREATININE (BEAKER) (test 2.01 mg/dL 0.57-1.25 xesc=462) GLUCOSE RANDOM (BEAKER) 112 mg/dL 70-105 (test nioo=275) CALCIUM (BEAKER) (test 9.2 mg/dL 8.4-10.2 wpzn=875) EGFR (BEAKER) (test 35 mL/min/1.73 sq m ESTIMATED GFR IS NOT wizm=8961) ACCURATE CREATININE CLEARANCE IN PREDICTING GLOMERULAR FILTRATION RATE. ESTIMATED GFR IS NOT APPLICABLE FOR DIALYSIS PATIENTS. Specimen slightly ictericHEPATIC FUNCTION [id number] 09:36:00 Test Item Value Reference Range Comments TOTAL PROTEIN (BEAKER) (test ulmw=699) 5.3 gm/dL 6.0-8.3 ALBUMIN (BEAKER) (test udos=2172) 3.0 g/dL 3.5-5.0 BILIRUBIN TOTAL (BEAKER) (test agtk=546) 4.1 mg/dL 0.2-1.2 BILIRUBIN DIRECT (BEAKER) (test owxn=857) 2.8 mg/dL 0.1-0.5 ALKALINE PHOSPHATASE (BEAKER) (test uobd=347) 115 U/L 40-150 AST (SGOT) (BEAKER) (test mtpv=471) 20 U/L 5-34 ALT (SGPT) (BEAKER) (test spzb=340) 9 U/L 6-55 Specimen slightly ictericCBC W/PLT COUNT & AUTO [id number] 09:28 :00 Test Item Value Reference Range Comments WHITE BLOOD CELL COUNT (BEAKER) (test fgdl=311) 4.4 K/ L 3.5-10.5 RED BLOOD CELL COUNT (BEAKER) (test poxi=122) 2.20 M/ L 4.63-6.08 HEMOGLOBIN (BEAKER) (test njoy=837) 7.1 GM/DL 13.7-17.5 HEMATOCRIT (BEAKER) (test ebos=518) 21.1 % 40.1-51.0 MEAN CORPUSCULAR VOLUME (BEAKER) (test fizx=777) 95.9 fL 79.0-92.2 MEAN CORPUSCULAR HEMOGLOBIN (BEAKER) (test 32.3 pg 25.7-32.2 zsvf=939) MEAN CORPUSCULAR HEMOGLOBIN CONC (BEAKER) (test 33.6 GM/DL 32.3-36.5 amva=682) RED CELL DISTRIBUTION WIDTH (BEAKER) (test 16.7 % 11.6-14.4 ifat=309) PLATELET COUNT (BEAKER) (test hakj=062) 60 K/CU MM 150-450 MEAN PLATELET VOLUME (BEAKER) (test nkla=894) 9.7 fL 9.4-12.4 NUCLEATED RED BLOOD CELLS (BEAKER) (test 0 /100 WBC 0-0 guua=603) NEUTROPHILS RELATIVE PERCENT (BEAKER) (test 71 % vptq=688) LYMPHOCYTES RELATIVE PERCENT (BEAKER) (test 9 % koic=730) MONOCYTES RELATIVE PERCENT (BEAKER) (test 16 % jojk=850) EOSINOPHILS RELATIVE PERCENT (BEAKER) (test 3 % wemm=213) BASOPHILS RELATIVE PERCENT (BEAKER) (test 0 % zpyn=257) NEUTROPHILS ABSOLUTE COUNT (BEAKER) (test 3.10 K/ L 1.78-5.38 awab=150) LYMPHOCYTES ABSOLUTE COUNT (BEAKER) (test 0.39 K/ L 1.32-3.57 yyue=357) MONOCYTES ABSOLUTE COUNT (BEAKER) (test qfkv=450) 0.69 K/ L 0.30-0.82 EOSINOPHILS ABSOLUTE COUNT (BEAKER) (test 0.12 K/ L 0.04-0.54 epkf=201) BASOPHILS ABSOLUTE COUNT (BEAKER) (test gewo=962) 0.01 K/ L 0.01-0.08 IMMATURE GRANULOCYTES-RELATIVE PERCENT (BEAKER) 1 % 0-1 (test zbsm=9246) PROTHROMBIN [id number] 09:07:00 Test Item Value Reference Range Comments PROTIME (BEAKER) (test rpaw=642) 21.6 seconds 11.7-14.7 INR (BEAKER) (test awwe=458) 1.9 <=5.9 RECOMMENDED COUMADIN/WARFARIN INR THERAPY RANGESSTANDARD DOSE: 2.0 - 3.0 Includes: PROPHYLAXIS forvenous thrombosis, systemic embolization; TREATMENT for venous thrombosis and/or pulmonary embolus.HIGH RISK: Target INR is 2.5-3.5 for patients with mechanical heart valves.[id number] 13:59:00 Test Item Value Reference Range Comments POC-CREATININE (BEAKER) 2.0 mg/dL 0.6-1.3 TESTED AT [address] (test opqb=2259) [facility] [address] POC-EGFR (BEAKER) (test 35 mL/min/1.73M2 xwrj=4107) PET/CT, LIMITED AREA [id number] 08:25:00PET/ CT ChestReason for Exam:-> Elongated nodular [...] thighsAdditional imaging: NoneSerum blood glucose: 119CPT Code: 94190 FINDINGS:Head and Neck: There is no trisha [...] Hung Verified Date/Time: 03/31/2018 08:25:09 POCT- GLUCOSE [id number] 14:54:00 Test Item Value Reference Range Comments POC-GLUCOSE METER (BEAKER) 119 mg/dL 70-110 TESTED AT [facility] [address] (test dstw=6601) [facility] [address] COMPREHENSIVE METABOLIC [id number] 16:49:00 Test Item Value Reference Range Comments TOTAL PROTEIN (BEAKER) 6.2 gm/dL 6.0-8.3 (test nnhp=571) ALBUMIN (BEAKER) (test 3.4 g/dL 3.5-5.0 izkx=3690) ALKALINE PHOSPHATASE 139 U/L 40-150 (BEAKER) (test dcxk=095) BILIRUBIN TOTAL (BEAKER) 4.0 mg/dL 0.2-1.2 (test lghc=167) SODIUM (BEAKER) (test 129 meq/L 136-145 tjnf=359) POTASSIUM (BEAKER) (test 4.3 meq/L 3.5-5.1 bnzg=005) CHLORIDE (BEAKER) (test 96 meq/L 98-107 eghb=752) CO2 (BEAKER) (test 22 meq/L 22-29 ndyh=046) BLOOD UREA NITROGEN 28 mg/dL 7-21 (BEAKER) (test gqbm=770) CREATININE (BEAKER) (test 1.51 mg/dL 0.57-1.25 mizx=986) GLUCOSE RANDOM (BEAKER) 89 mg/dL 70-105 (test fauy=669) CALCIUM (BEAKER) (test 9.5 mg/dL 8.4-10.2 fmpg=289) AST (SGOT) (BEAKER) (test 26 U/L 5-34 kqkk=695) ALT (SGPT) (BEAKER) (test 11 U/L 6-55 dbdw=104) EGFR (BEAKER) (test 49 mL/min/1.73 sq m ESTIMATED GFR IS NOT mtkm=4459) ACCURATE CREATININE CLEARANCE IN PREDICTING GLOMERULAR FILTRATION RATE. ESTIMATED GFR IS NOT APPLICABLE FOR DIALYSIS PATIENTS. Specimen slightly ictericBILIRUBIN, [id number] 16:49:00 Test Item Value Reference Range Comments BILIRUBIN DIRECT (BEAKER) (test ucmc=436) 2.8 mg/dL 0.1-0.5 PROTHROMBIN [id number] 16:36:00 Test Item Value Reference Range Comments PROTIME (BEAKER) (test rnfc=575) 19.0 seconds 11.7-14.7 INR (BEAKER) (test owhv=629) 1.6 <=5.9 RECOMMENDED COUMADIN/WARFARIN INR THERAPY RANGESSTANDARD DOSE: 2.0 - 3.0 Includes: PROPHYLAXIS forvenous thrombosis, systemic embolization; TREATMENT for venous thrombosis and/or pulmonary embolus.HIGH RISK: Target INR is 2.5-3.5 for patients with mechanical heart valves.CBC W/PLT COUNT & AUTO [id number] 16:27:00 Test Item Value Reference Range Comments WHITE BLOOD CELL COUNT (BEAKER) (test zciw=518) 6.0 K/ L 3.5-10.5 RED BLOOD CELL COUNT (BEAKER) (test iape=868) 2.74 M/ L 4.63-6.08 HEMOGLOBIN (BEAKER) (test gyjf=713) 9.3 GM/DL 13.7-17.5 HEMATOCRIT (BEAKER) (test rokc=638) 27.6 % 40.1-51.0 MEAN CORPUSCULAR VOLUME (BEAKER) (test vrcp=101) 100.7 fL 79.0-92.2 MEAN CORPUSCULAR HEMOGLOBIN (BEAKER) (test 33.9 pg 25.7-32.2 djjj=978) MEAN CORPUSCULAR HEMOGLOBIN CONC (BEAKER) (test 33.7 GM/DL 32.3-36.5 ndep=128) RED CELL DISTRIBUTION WIDTH (BEAKER) (test 14.9 % 11.6-14.4 sigm=178) PLATELET COUNT (BEAKER) (test wagg=304) 96 K/CU MM 150-450 MEAN PLATELET VOLUME (BEAKER) (test lspx=111) 9.4 fL 9.4-12.4 NUCLEATED RED BLOOD CELLS (BEAKER) (test 0 /100 WBC 0-0 ptoo=893) NEUTROPHILS RELATIVE PERCENT (BEAKER) (test 64 % gdfs=898) LYMPHOCYTES RELATIVE PERCENT (BEAKER) (test 11 % ixgm=620) MONOCYTES RELATIVE PERCENT (BEAKER) (test 16 % hvvs=501) EOSINOPHILS RELATIVE PERCENT (BEAKER) (test 7 % rkyp=074) BASOPHILS RELATIVE PERCENT (BEAKER) (test 1 % rkdi=439) NEUTROPHILS ABSOLUTE COUNT (BEAKER) (test 3.83 K/ L 1.78-5.38 vhrd=811) LYMPHOCYTES ABSOLUTE COUNT (BEAKER) (test 0.66 K/ L 1.32-3.57 owaz=011) MONOCYTES ABSOLUTE COUNT (BEAKER) (test pizo=669) 0.95 K/ L 0.30-0.82 EOSINOPHILS ABSOLUTE COUNT (BEAKER) (test 0.41 K/ L 0.04-0.54 dngd=246) BASOPHILS ABSOLUTE COUNT (BEAKER) (test cmhv=171) 0.03 K/ L 0.01-0.08 IMMATURE GRANULOCYTES-RELATIVE PERCENT (BEAKER) 2 % 0-1 (test uuki=5654) BASIC METABOLIC [id number] 08:26:00 Test Item Value Reference Range Comments SODIUM (BEAKER) (test 127 meq/L 136-145 yalh=580) POTASSIUM (BEAKER) (test 4.3 meq/L 3.5-5.1 ftsb=649) CHLORIDE (BEAKER) (test 96 meq/L 98-107 cwav=902) CO2 (BEAKER) (test 23 meq/L 22-29 xagh=600) BLOOD UREA NITROGEN 25 mg/dL 7-21 (BEAKER) (test hnks=026) CREATININE (BEAKER) (test 1.46 mg/dL 0.57-1.25 cfrw=097) GLUCOSE RANDOM (BEAKER) 130 mg/dL 70-105 (test pfep=711) CALCIUM (BEAKER) (test 9.1 mg/dL 8.4-10.2 zfco=282) EGFR (BEAKER) (test 51 mL/min/1.73 sq m ESTIMATED GFR IS NOT xpdn=0448) ACCURATE CREATININE CLEARANCE IN PREDICTING GLOMERULAR FILTRATION RATE. ESTIMATED GFR IS NOT APPLICABLE FOR DIALYSIS PATIENTS. Specimen slightly ictericCBC (HEMOGRAM ONLY)2018-02-23 08:06:00 Test Item Value Reference Range Comments WHITE BLOOD CELL COUNT (BEAKER) (test rzuk=257) 5.4 K/ L 3.5-10.5 RED BLOOD CELL COUNT (BEAKER) (test akbt=317) 2.64 M/ L 4.63-6.08 HEMOGLOBIN (BEAKER) (test zxjw=042) 8.8 GM/DL 13.7-17.5 HEMATOCRIT (BEAKER) (test uosm=351) 26.2 % 40.1-51.0 MEAN CORPUSCULAR VOLUME (BEAKER) (test klyv=608) 99.2 fL 79.0-92.2 MEAN CORPUSCULAR HEMOGLOBIN (BEAKER) (test 33.3 pg 25.7-32.2 iqze=484) MEAN CORPUSCULAR HEMOGLOBIN CONC (BEAKER) (test 33.6 GM/DL 32.3-36.5 mtds=400) RED CELL DISTRIBUTION WIDTH (BEAKER) (test 16.2 % 11.6-14.4 hrog=132) PLATELET COUNT (BEAKER) (test vdyu=938) 100 K/CU MM 150-450 MEAN PLATELET VOLUME (BEAKER) (test eorb=997) 8.7 fL 9.4-12.4 NUCLEATED RED BLOOD CELLS (BEAKER) (test 0 /100 WBC 0-0 ukjk=407) COMPREHENSIVE METABOLIC [id number] 15:06:00 Test Item Value Reference Range Comments TOTAL PROTEIN (BEAKER) 6.5 gm/dL 6.0-8.3 (test ykdy=328) ALBUMIN (BEAKER) (test 3.7 g/dL 3.5-5.0 iwgq=8438) ALKALINE PHOSPHATASE 135 U/L 40-150 (BEAKER) (test rksb=562) BILIRUBIN TOTAL (BEAKER) 4.5 mg/dL 0.2-1.2 (test fwcm=555) SODIUM (BEAKER) (test 131 meq/L 136-145 vlvc=500) POTASSIUM (BEAKER) (test 5.8 meq/L 3.5-5.1 saws=941) CHLORIDE (BEAKER) (test 103 meq/L 98-107 qfgm=451) CO2 (BEAKER) (test 24 meq/L 22-29 mzxk=171) BLOOD UREA NITROGEN 27 mg/dL 7-21 (BEAKER) (test lwdh=330) CREATININE (BEAKER) (test 1.17 mg/dL 0.57-1.25 kpdc=004) GLUCOSE RANDOM (BEAKER) 111 mg/dL 70-105 (test afjf=302) CALCIUM (BEAKER) (test 11.0 mg/dL 8.4-10.2 odiz=743) AST (SGOT) (BEAKER) (test 28 U/L 5-34 fcft=723) ALT (SGPT) (BEAKER) (test 19 U/L 6-55 hdau=032) EGFR (BEAKER) (test 65 mL/min/1.73 sq m ESTIMATED GFR IS NOT liiv=6016) ACCURATE CREATININE CLEARANCE IN PREDICTING GLOMERULAR FILTRATION RATE. ESTIMATED GFR IS NOT APPLICABLE FOR DIALYSIS PATIENTS. Specimen slightly ictericBILIRUBIN, [id number] 15:06:00 Test Item Value Reference Range Comments BILIRUBIN DIRECT (BEAKER) (test astc=191) 3.0 mg/dL 0.1-0.5 PROTHROMBIN [id number] 14:42:00 Test Item Value Reference Range Comments PROTIME (BEAKER) (test boch=653) 19.1 seconds 11.7-14.7 INR (BEAKER) (test negq=054) 1.6 <=5.9 RECOMMENDED COUMADIN/WARFARIN INR THERAPY RANGESSTANDARD DOSE: 2.0 - 3.0 Includes: PROPHYLAXIS forvenous thrombosis, systemic embolization; TREATMENT for venous thrombosis and/or pulmonary embolus.HIGH RISK: Target INR is 2.5-3.5 for patients with mechanical heart valves.CBC W/PLT COUNT & AUTO [id number] 14:36:00 Test Item Value Reference Range Comments WHITE BLOOD CELL COUNT (BEAKER) (test vzhk=406) 5.5 K/ L 3.5-10.5 RED BLOOD CELL COUNT (BEAKER) (test drdg=679) 2.84 M/ L 4.63-6.08 HEMOGLOBIN (BEAKER) (test vxev=136) 9.5 GM/DL 13.7-17.5 HEMATOCRIT (BEAKER) (test mcoz=989) 28.8 % 40.1-51.0 MEAN CORPUSCULAR VOLUME (BEAKER) (test ruxz=024) 101.4 fL 79.0-92.2 MEAN CORPUSCULAR HEMOGLOBIN (BEAKER) (test 33.5 pg 25.7-32.2 dxbo=456) MEAN CORPUSCULAR HEMOGLOBIN CONC (BEAKER) (test 33.0 GM/DL 32.3-36.5 pcby=571) RED CELL DISTRIBUTION WIDTH (BEAKER) (test 19.4 % 11.6-14.4 zlqk=937) PLATELET COUNT (BEAKER) (test wbxe=645) 65 K/CU MM 150-450 MEAN PLATELET VOLUME (BEAKER) (test lfxr=457) 8.8 fL 9.4-12.4 NUCLEATED RED BLOOD CELLS (BEAKER) (test 0 /100 WBC 0-0 cwci=498) NEUTROPHILS RELATIVE PERCENT (BEAKER) (test 66 % phvp=996) LYMPHOCYTES RELATIVE PERCENT (BEAKER) (test 14 % vcsc=630) MONOCYTES RELATIVE PERCENT (BEAKER) (test 15 % wuia=525) EOSINOPHILS RELATIVE PERCENT (BEAKER) (test 4 % sqdl=918) BASOPHILS RELATIVE PERCENT (BEAKER) (test 0 % uotq=433) NEUTROPHILS ABSOLUTE COUNT (BEAKER) (test 3.58 K/ L 1.78-5.38 jymp=707) LYMPHOCYTES ABSOLUTE COUNT (BEAKER) (test 0.78 K/ L 1.32-3.57 jerc=539) MONOCYTES ABSOLUTE COUNT (BEAKER) (test ixax=790) 0.79 K/ L 0.30-0.82 EOSINOPHILS ABSOLUTE COUNT (BEAKER) (test 0.23 K/ L 0.04-0.54 vpkl=299) BASOPHILS ABSOLUTE COUNT (BEAKER) (test efbn=657) 0.02 K/ L 0.01-0.08 IMMATURE GRANULOCYTES-RELATIVE PERCENT (BEAKER) 1 % 0-1 (test zuon=5900) RAD, KNEE, COMPLETE (4 VIEWS), [id number] 11:15:00Reason for exam:->FALL , PAINFINAL REPORT Bilateral [...] MDReport Verified Date/Time: 01/06/2018 11:15:08 Reading Location: [facility] Reading Room RAD, KNEE, COMPLETE (4 VIEWS), [id number] 11:15:00Reason for exam:->FALL, PAINFINAL REPORT Bilateral knee [...] MDReport Verified Date/Time: 01/06/2018 11:15:08 Reading Location: [facility] Rad[facility] Reading Room CBC W/PLT COUNT & AUTO [id number] 10: 58:00 Test Item Value Reference Range Comments WHITE BLOOD CELL COUNT (BEAKER) (test jcer=061) 2.9 K/ L 3.5-10.5 RED BLOOD CELL COUNT (BEAKER) (test xqrj=220) 2.27 M/ L 4.63-6.08 HEMOGLOBIN (BEAKER) (test wqqy=050) 7.1 GM/DL 13.7-17.5 HEMATOCRIT (BEAKER) (test euem=028) 21.0 % 40.1-51.0 MEAN CORPUSCULAR VOLUME (BEAKER) (test obpd=526) 92.5 fL 79.0-92.2 MEAN CORPUSCULAR HEMOGLOBIN (BEAKER) (test 31.3 pg 25.7-32.2 dzck=017) MEAN CORPUSCULAR HEMOGLOBIN CONC (BEAKER) (test 33.8 GM/DL 32.3-36.5 jpwt=985) RED CELL DISTRIBUTION WIDTH (BEAKER) (test 17.2 % 11.6-14.4 xghu=100) PLATELET COUNT (BEAKER) (test jnmg=663) 42 K/CU MM 150-450 MEAN PLATELET VOLUME (BEAKER) (test wgha=934) 10.1 fL 9.4-12.4 NUCLEATED RED BLOOD CELLS (BEAKER) (test 0 /100 WBC 0-0 vrmr=674) NEUTROPHILS RELATIVE PERCENT (BEAKER) (test 77 % iqno=570) LYMPHOCYTES RELATIVE PERCENT (BEAKER) (test 12 % cupz=508) MONOCYTES RELATIVE PERCENT (BEAKER) (test 10 % xono=717) EOSINOPHILS RELATIVE PERCENT (BEAKER) (test 1 % mtmm=803) BASOPHILS RELATIVE PERCENT (BEAKER) (test 0 % jzsb=309) NEUTROPHILS ABSOLUTE COUNT (BEAKER) (test 2.21 K/ L 1.78-5.38 ynug=306) LYMPHOCYTES ABSOLUTE COUNT (BEAKER) (test 0.33 K/ L 1.32-3.57 fpkl=332) MONOCYTES ABSOLUTE COUNT (BEAKER) (test rpwg=149) 0.30 K/ L 0.30-0.82 EOSINOPHILS ABSOLUTE COUNT (BEAKER) (test 0.03 K/ L 0.04-0.54 olud=210) BASOPHILS ABSOLUTE COUNT (BEAKER) (test dluy=016) 0.00 K/ L 0.01-0.08 IMMATURE GRANULOCYTES-RELATIVE PERCENT (BEAKER) 0 % 0-1 (test wwko=1259) [id number] 06:06:00 Test Item Value Reference Range Comments PHOSPHORUS (BEAKER) (test sphl=262) 3.6 mg/dL 2.3-4.7 [id number] 06:06:00 Test Item Value Reference Range Comments MAGNESIUM (BEAKER) (test aeip=552) 2.0 mg/dL 1.6-2.6 BASIC METABOLIC [id number] 06:06:00 Test Item Value Reference Range Comments SODIUM (BEAKER) (test 130 meq/L 136-145 qgqs=640) POTASSIUM (BEAKER) (test 4.4 meq/L 3.5-5.1 nkvl=221) CHLORIDE (BEAKER) (test 100 meq/L 98-107 emab=163) CO2 (BEAKER) (test 23 meq/L 22-29 mnpg=585) BLOOD UREA NITROGEN 21 mg/dL 7-21 (BEAKER) (test vhxl=903) CREATININE (BEAKER) (test 1.11 mg/dL 0.57-1.25 nmgl=794) GLUCOSE RANDOM (BEAKER) 120 mg/dL 70-105 (test hyge=670) CALCIUM (BEAKER) (test 9.4 mg/dL 8.4-10.2 ziwe=352) EGFR (BEAKER) (test 70 mL/min/1.73 sq m ESTIMATED GFR IS NOT grml=4579) ACCURATE CREATININE CLEARANCE IN PREDICTING GLOMERULAR FILTRATION RATE. ESTIMATED GFR IS NOT APPLICABLE FOR DIALYSIS PATIENTS. Specimen slightly ictericPROTHROMBIN [id number] 06:02:00 Test Item Value Reference Range Comments PROTIME (BEAKER) (test nxhq=323) 22.9 seconds 11.7-14.7 INR (BEAKER) (test pvfh=553) 2.0 <=5.9 RECOMMENDED COUMADIN/WARFARIN INR THERAPY RANGESSTANDARD DOSE: 2.0 - 3.0 Includes: PROPHYLAXIS forvenous thrombosis, systemic embolization; TREATMENT for venous thrombosis and/or pulmonary embolus.HIGH RISK: Target INR is 2.5-3.5 for patients with mechanical heart valves.CALCIUM, [id number] 06:01:00 Test Item Value Reference Range Comments CALCIUM IONIZED (BEAKER) (test mcfu=044) 1.11 mmol/L 1.12-1.27 PH, BLOOD (BEAKER) (test pbbd=6218) 7.53 CORTISOL,60 [id number] 23:20:00 Test Item Value Reference Range Comments CORTISOL BASELINE NETWORKED (BEAKER) (test 4.8 mcg/dL aooa=6164) CORTISOL 30 MINUTE NETWORKED (BEAKER) (test 9.2 mcg/dL xlhe=2663) CORTISOL, 60 MINUTE (BEAKER) (test kscq=0002) 12.6 ug/dL ACTH STIMULATION TEST INTERPRETATION GUIDELINES(Synonyms: [...] study by Mindy et al (NEVAEH 2000,283( 8):4987-45), the ACTH Stimulation Test provides important prognostic [...] serum cortisollevel 60 minutes after cosyntropin administration.CORTISOL,30 [id number] 22:35:00 Test Item Value Reference Range Comments CORTISOL BASELINE NETWORKED (BEAKER) (test 4.8 mcg/dL virq=9692) CORTISOL, 30 MINUTE (BEAKER) (test jdmw=0858) 9.2 ug/dL ACTH STIMULATION TEST INTERPRETATION GUIDELINES(Synonyms: [...] Draw serum cortisollevel 60 minutes after cosyntropin administration.CORTISOL,[id number] 22:35:00 Test Item Value Reference Range Comments CORTISOL, BASELINE (TUNG) (test lwma=5389) 4.8 ug/dL ACTH STIMULATION TEST INTERPRETATION GUIDELINES(Synonyms: [...] serum cortisollevel 60 minutes after cosyntropin administration.U/S, [id number] 17:54:00Reason for exam:->therapeuticFINAL REPORT History: Ascites. PROCEDURE: Following informed written consent,the patient's right lower quadrant was prepped and draped in the usual sterile manner. 2% lidocaine was given locally for anesthesia. No conscious sedation was administered. Using ultrasound guidance, a 5 Portuguese one-step catheter was advanced percutaneously into the [...] Verified Date/Time: 01/05/2018 17: 54:16 Reading Location: [address] Ultrasound Reading Room [id number] 11:19:00 Test Item Value Reference Range Comments CORTISOL, TOTAL (BEAKER) (test qler=2852) 2.7 ug/dL 3.7-19.4 [id number] 10:21:00 Test Item Value Reference Range Comments PHOSPHORUS (BEAKER) (test qcsh=265) 2.8 mg/dL 2.3-4.7 [id number] 10:21:00 Test Item Value Reference Range Comments MAGNESIUM (BEAKER) (test mcye=525) 1.9 mg/dL 1.6-2.6 BASIC METABOLIC [id number] 10:21:00 Test Item Value Reference Range Comments SODIUM (BEAKER) (test 127 meq/L 136-145 tbiw=885) POTASSIUM (BEAKER) (test 5.0 meq/L 3.5-5.1 ojth=777) CHLORIDE (BEAKER) (test 100 meq/L 98-107 qlpf=868) CO2 (BEAKER) (test 22 meq/L 22-29 dunt=746) BLOOD UREA NITROGEN 25 mg/dL 7-21 (BEAKER) (test gduo=243) CREATININE (BEAKER) (test 1.17 mg/dL 0.57-1.25 qljh=372) GLUCOSE RANDOM (BEAKER) 84 mg/dL 70-105 (test jczw=159) CALCIUM (BEAKER) (test 8.7 mg/dL 8.4-10.2 fzhj=545) EGFR (BEAKER) (test 65 mL/min/1.73 sq m ESTIMATED GFR IS NOT lgos=6178) ACCURATE CREATININE CLEARANCE IN PREDICTING GLOMERULAR FILTRATION RATE. ESTIMATED GFR IS NOT APPLICABLE FOR DIALYSIS PATIENTS. Specimen slightly ictericCBC W/PLT COUNT & AUTO [id number] 08:42 :00 Test Item Value Reference Range Comments WHITE BLOOD CELL COUNT (BEAKER) (test xelt=891) 2.7 K/ L 3.5-10.5 RED BLOOD CELL COUNT (BEAKER) (test xaki=764) 2.33 M/ L 4.63-6.08 HEMOGLOBIN (BEAKER) (test pbbh=834) 7.3 GM/DL 13.7-17.5 HEMATOCRIT (BEAKER) (test bpwl=348) 22.0 % 40.1-51.0 MEAN CORPUSCULAR VOLUME (BEAKER) (test mqiy=408) 94.4 fL 79.0-92.2 MEAN CORPUSCULAR HEMOGLOBIN (BEAKER) (test 31.3 pg 25.7-32.2 agnm=043) MEAN CORPUSCULAR HEMOGLOBIN CONC (BEAKER) (test 33.2 GM/DL 32.3-36.5 gtvb=090) RED CELL DISTRIBUTION WIDTH (BEAKER) (test 17.2 % 11.6-14.4 mfpk=470) PLATELET COUNT (BEAKER) (test zobx=586) 45 K/CU MM 150-450 MEAN PLATELET VOLUME (BEAKER) (test jgnp=488) 9.3 fL 9.4-12.4 NUCLEATED RED BLOOD CELLS (BEAKER) (test 0 /100 WBC 0-0 nags=087) NEUTROPHILS RELATIVE PERCENT (BEAKER) (test 60 % qgea=415) LYMPHOCYTES RELATIVE PERCENT (BEAKER) (test 17 % elfy=887) MONOCYTES RELATIVE PERCENT (BEAKER) (test 16 % xhxs=254) EOSINOPHILS RELATIVE PERCENT (BEAKER) (test 6 % gdmb=680) BASOPHILS RELATIVE PERCENT (BEAKER) (test 0 % apgj=136) NEUTROPHILS ABSOLUTE COUNT (BEAKER) (test 1.63 K/ L 1.78-5.38 pynn=390) LYMPHOCYTES ABSOLUTE COUNT (BEAKER) (test 0.45 K/ L 1.32-3.57 fjgf=372) MONOCYTES ABSOLUTE COUNT (BEAKER) (test dlub=946) 0.44 K/ L 0.30-0.82 EOSINOPHILS ABSOLUTE COUNT (BEAKER) (test 0.16 K/ L 0.04-0.54 eddr=902) BASOPHILS ABSOLUTE COUNT (BEAKER) (test asuc=329) 0.01 K/ L 0.01-0.08 IMMATURE GRANULOCYTES-RELATIVE PERCENT (BEAKER) 1 % 0-1 (test hxfe=6112) (MANUAL DIFFERENTIAL)2018-01-05 08:42:00 Test Item Value Reference Range Comments TOTAL COUNTED (BEAKER) (test ubtl=0690) WBC MORPHOLOGY (BEAKER) (test dtqd=328) Normal PLT MORPHOLOGY (BEAKER) (test xheq=357) Normal ANISOCYTOSIS (BEAKER) (test abpo=839) 1+ few CALCIUM, [id number] 08:10:00 Test Item Value Reference Range Comments CALCIUM IONIZED (BEAKER) (test hjkj=664) 1.08 mmol/L 1.12-1.27 PH, BLOOD (BEAKER) (test cble=6820) 7.44 PROTHROMBIN [id number] 07:12:00 Test Item Value Reference Range Comments PROTIME (BEAKER) (test jjec=837) 22.4 seconds 11.7-14.7 INR (BEAKER) (test gpqb=383) 2.0 <=5.9 RECOMMENDED COUMADIN/WARFARIN INR THERAPY RANGESSTANDARD DOSE: 2.0 - 3.0 Includes: PROPHYLAXIS forvenous thrombosis, systemic embolization; TREATMENT for venous thrombosis and/or pulmonary embolus.HIGH RISK: Target INR is 2.5-3.5 for patients with mechanical heart valves.[id number] 17:54:00 Test Item Value Reference Range Comments SODIUM (BEAKER) (test nwjw=956) 129 meq/L 136-145 POTASSIUM (BEAKER) (test gqfj=648) 5.5 meq/L 3.5-5.1 CHLORIDE (BEAKER) (test fcfp=699) 101 meq/L 98-107 CO2 (BEAKER) (test huaj=846) 26 meq/L 22-29 Call [id number] with resultsCBC (HEMOGRAM ONLY)2018-01-04 07:16:00 Test Item Value Reference Range Comments WHITE BLOOD CELL COUNT (BEAKER) (test fnfr=212) 2.9 K/ L 3.5-10.5 RED BLOOD CELL COUNT (BEAKER) (test ofnb=190) 2.25 M/ L 4.63-6.08 HEMOGLOBIN (BEAKER) (test pech=956) 7.3 GM/DL 13.7-17.5 HEMATOCRIT (BEAKER) (test geth=415) 21.3 % 40.1-51.0 MEAN CORPUSCULAR VOLUME (BEAKER) (test qcrv=251) 94.7 fL 79.0-92.2 MEAN CORPUSCULAR HEMOGLOBIN (BEAKER) (test 32.4 pg 25.7-32.2 ttll=012) MEAN CORPUSCULAR HEMOGLOBIN CONC (BEAKER) (test 34.3 GM/DL 32.3-36.5 gidm=989) RED CELL DISTRIBUTION WIDTH (BEAKER) (test 17.6 % 11.6-14.4 vcvf=045) PLATELET COUNT (BEAKER) (test avex=190) 59 K/CU MM 150-450 MEAN PLATELET VOLUME (BEAKER) (test oupt=833) 11.3 fL 9.4-12.4 NUCLEATED RED BLOOD CELLS (BEAKER) (test 0 /100 WBC 0-0 smsv=292) COMPREHENSIVE METABOLIC [id number] 06:49:00 Test Item Value Reference Range Comments TOTAL PROTEIN (BEAKER) 5.3 gm/dL 6.0-8.3 Specimen slightly (test ywvi=947) hemolyzed ALBUMIN (BEAKER) (test 3.3 g/dL 3.5-5.0 Specimen slightly jphb=5964) hemolyzed ALKALINE PHOSPHATASE 81 U/L 40-150 (BEAKER) (test pfcv=357) BILIRUBIN TOTAL (BEAKER) 2.4 mg/dL 0.2-1.2 Specimen slightly (test unzg=788) hemolyzed SODIUM (BEAKER) (test 127 meq/L 136-145 cwsa=202) POTASSIUM (BEAKER) (test 5.7 meq/L 3.5-5.1 Specimen slightly ruol=051) hemolyzed CHLORIDE (BEAKER) (test 100 meq/L 98-107 sgko=708) CO2 (BEAKER) (test 20 meq/L 22-29 wlcf=708) BLOOD UREA NITROGEN 22 mg/dL 7-21 (BEAKER) (test sosw=285) CREATININE (BEAKER) (test 1.14 mg/dL 0.57-1.25 Specimen slightly xrit=201) hemolyzed GLUCOSE RANDOM (BEAKER) 96 mg/dL 70-105 (test utwj=217) CALCIUM (BEAKER) (test 8.9 mg/dL 8.4-10.2 cuvo=377) AST (SGOT) (BEAKER) (test 30 U/L 5-34 Specimen slightly gcga=176) hemolyzed ALT (SGPT) (BEAKER) (test 8 U/L 6-55 Specimen slightly sqqg=040) hemolyzed EGFR (BEAKER) (test 67 mL/min/1.73 sq m ESTIMATED GFR IS NOT jbeb=4434) ACCURATE CREATININE CLEARANCE IN PREDICTING GLOMERULAR FILTRATION RATE. ESTIMATED GFR IS NOT APPLICABLE FOR DIALYSIS PATIENTS. Specimen slightly ictericPROTHROMBIN [id number] 06:15:00 Test Item Value Reference Range Comments PROTIME (BEAKER) (test wnbd=628) 22.7 seconds 11.7-14.7 INR (BEAKER) (test ioao=440) 2.0 <=5.9 RECOMMENDED COUMADIN/WARFARIN INR THERAPY RANGESSTANDARD DOSE: 2.0 - 3.0 Includes: PROPHYLAXIS forvenous thrombosis, systemic embolization; TREATMENT for venous thrombosis and/or pulmonary embolus.HIGH RISK: Target INR is 2.5-3.5 for patients with mechanical heart valves.VITAMIN B12 AND [id number] 16:39 :00 Test Item Value Reference Range Comments VITAMIN B12 (BEAKER) (test fcaz=024) 829 pg/mL 213-816 FOLATE (BEAKER) (test deiq=270) 18.9 ng/mL >=7.0 CALCIUM, [id number] 07:14:00 Test Item Value Reference Range Comments CALCIUM IONIZED (BEAKER) (test xxuj=547) 1.08 mmol/L 1.12-1.27 PH, BLOOD (BEAKER) (test vhak=6970) 7.41 COMPREHENSIVE METABOLIC [id number] 07:00:00 Test Item Value Reference Range Comments TOTAL PROTEIN (BEAKER) 5.0 gm/dL 6.0-8.3 (test vghm=293) ALBUMIN (BEAKER) (test 3.1 g/dL 3.5-5.0 egzj=8157) ALKALINE PHOSPHATASE 65 U/L 40-150 (BEAKER) (test zcgc=933) BILIRUBIN TOTAL (BEAKER) 2.5 mg/dL 0.2-1.2 (test widv=349) SODIUM (BEAKER) (test 127 meq/L 136-145 xnoq=698) POTASSIUM (BEAKER) (test 4.7 meq/L 3.5-5.1 vvcp=872) CHLORIDE (BEAKER) (test 99 meq/L 98-107 ryao=533) CO2 (BEAKER) (test 23 meq/L 22-29 lssz=922) BLOOD UREA NITROGEN 21 mg/dL 7-21 (BEAKER) (test turq=367) CREATININE (BEAKER) (test 1.13 mg/dL 0.57-1.25 ebcj=085) GLUCOSE RANDOM (BEAKER) 92 mg/dL 70-105 (test hqzd=244) CALCIUM (BEAKER) (test 8.9 mg/dL 8.4-10.2 jcoe=577) AST (SGOT) (BEAKER) (test 18 U/L 5-34 dnam=095) ALT (SGPT) (BEAKER) (test 8 U/L 6-55 gjxd=428) EGFR (BEAKER) (test 68 mL/min/1.73 sq m ESTIMATED GFR IS NOT eptw=0527) ACCURATE CREATININE CLEARANCE IN PREDICTING GLOMERULAR FILTRATION RATE. ESTIMATED GFR IS NOT APPLICABLE FOR DIALYSIS PATIENTS. [id number] 06:37:00 Test Item Value Reference Range Comments PHOSPHORUS (BEAKER) (test rrbf=878) 3.2 mg/dL 2.3-4.7 [id number] 06:37:00 Test Item Value Reference Range Comments MAGNESIUM (BEAKER) (test veam=337) 1.9 mg/dL 1.6-2.6 CBC (HEMOGRAM ONLY)2018-01-03 06:25:00 Test Item Value Reference Range Comments WHITE BLOOD CELL COUNT (BEAKER) (test xooc=296) 3.1 K/ L 3.5-10.5 RED BLOOD CELL COUNT (BEAKER) (test fakm=772) 2.31 M/ L 4.63-6.08 HEMOGLOBIN (BEAKER) (test pylx=995) 7.4 GM/DL 13.7-17.5 HEMATOCRIT (BEAKER) (test frwe=821) 21.6 % 40.1-51.0 MEAN CORPUSCULAR VOLUME (BEAKER) (test ngxm=535) 93.5 fL 79.0-92.2 MEAN CORPUSCULAR HEMOGLOBIN (BEAKER) (test 32.0 pg 25.7-32.2 dbnj=926) MEAN CORPUSCULAR HEMOGLOBIN CONC (BEAKER) (test 34.3 GM/DL 32.3-36.5 xzvk=012) RED CELL DISTRIBUTION WIDTH (BEAKER) (test 17.4 % 11.6-14.4 rahv=710) PLATELET COUNT (BEAKER) (test lcgu=004) 50 K/CU MM 150-450 MEAN PLATELET VOLUME (BEAKER) (test xoxf=381) 10.5 fL 9.4-12.4 NUCLEATED RED BLOOD CELLS (BEAKER) (test 0 /100 WBC 0-0 rqqo=902) PROTHROMBIN [id number] 06:09:00 Test Item Value Reference Range Comments PROTIME (BEAKER) (test ptvi=249) 22.2 seconds 11.7-14.7 INR (BEAKER) (test lcin=365) 2.0 <=5.9 RECOMMENDED COUMADIN/WARFARIN INR THERAPY RANGESSTANDARD DOSE: 2.0 - 3.0 Includes: PROPHYLAXIS forvenous thrombosis, systemic embolization; TREATMENT for venous thrombosis and/or pulmonary embolus.HIGH RISK: Target INR is 2.5-3.5 for patients with mechanical heart valves.[id number] 07:54:00 Test Item Value Reference Range Comments PHOSPHORUS (BEAKER) (test mvcz=089) 3.2 mg/dL 2.3-4.7 [id number] 07:54:00 Test Item Value Reference Range Comments MAGNESIUM (BEAKER) (test bvsd=327) 1.4 mg/dL 1.6-2.6 COMPREHENSIVE METABOLIC [id number] 07:54:00 Test Item Value Reference Range Comments TOTAL PROTEIN (BEAKER) 5.3 gm/dL 6.0-8.3 (test ivnh=252) ALBUMIN (BEAKER) (test 3.4 g/dL 3.5-5.0 tlvl=7070) ALKALINE PHOSPHATASE 55 U/L 40-150 (BEAKER) (test tqyn=762) BILIRUBIN TOTAL (BEAKER) 3.9 mg/dL 0.2-1.2 (test tsok=938) SODIUM (BEAKER) (test 131 meq/L 136-145 rsmc=865) POTASSIUM (BEAKER) (test 4.3 meq/L 3.5-5.1 ptmw=477) CHLORIDE (BEAKER) (test 101 meq/L 98-107 ogsv=730) CO2 (BEAKER) (test 23 meq/L 22-29 dleo=175) BLOOD UREA NITROGEN 19 mg/dL 7-21 (BEAKER) (test hchw=985) CREATININE (BEAKER) (test 0.97 mg/dL 0.57-1.25 ztdw=958) GLUCOSE RANDOM (BEAKER) 80 mg/dL 70-105 (test olrp=323) CALCIUM (BEAKER) (test 9.4 mg/dL 8.4-10.2 agpy=145) AST (SGOT) (BEAKER) (test 17 U/L 5-34 zfqj=252) ALT (SGPT) (BEAKER) (test 8 U/L 6-55 ulmu=954) EGFR (BEAKER) (test 81 mL/min/1.73 sq m ESTIMATED GFR IS NOT yiql=8308) ACCURATE CREATININE CLEARANCE IN PREDICTING GLOMERULAR FILTRATION RATE. ESTIMATED GFR IS NOT APPLICABLE FOR DIALYSIS PATIENTS. Specimen slightly ictericCBC W/PLT COUNT & AUTO [id number] 07:14 :00 Test Item Value Reference Range Comments WHITE BLOOD CELL COUNT (BEAKER) (test mcef=630) 2.9 K/ L 3.5-10.5 RED BLOOD CELL COUNT (BEAKER) (test lwxb=080) 2.55 M/ L 4.63-6.08 HEMOGLOBIN (BEAKER) (test bmcp=236) 8.1 GM/DL 13.7-17.5 HEMATOCRIT (BEAKER) (test ylvr=018) 23.7 % 40.1-51.0 MEAN CORPUSCULAR VOLUME (BEAKER) (test swpr=652) 92.9 fL 79.0-92.2 MEAN CORPUSCULAR HEMOGLOBIN (BEAKER) (test 31.8 pg 25.7-32.2 gzzl=373) MEAN CORPUSCULAR HEMOGLOBIN CONC (BEAKER) (test 34.2 GM/DL 32.3-36.5 pefn=537) RED CELL DISTRIBUTION WIDTH (BEAKER) (test 17.5 % 11.6-14.4 pkii=883) PLATELET COUNT (BEAKER) (test kzvw=332) 50 K/CU MM 150-450 MEAN PLATELET VOLUME (BEAKER) (test saus=169) 9.5 fL 9.4-12.4 NUCLEATED RED BLOOD CELLS (BEAKER) (test 0 /100 WBC 0-0 tqtj=078) NEUTROPHILS RELATIVE PERCENT (BEAKER) (test 57 % jmfq=458) LYMPHOCYTES RELATIVE PERCENT (BEAKER) (test 17 % ssyg=190) MONOCYTES RELATIVE PERCENT (BEAKER) (test 18 % kiwj=007) EOSINOPHILS RELATIVE PERCENT (BEAKER) (test 7 % nqnz=836) BASOPHILS RELATIVE PERCENT (BEAKER) (test 0 % nlur=959) NEUTROPHILS ABSOLUTE COUNT (BEAKER) (test 1.65 K/ L 1.78-5.38 qvjn=752) LYMPHOCYTES ABSOLUTE COUNT (BEAKER) (test 0.49 K/ L 1.32-3.57 mwqa=810) MONOCYTES ABSOLUTE COUNT (BEAKER) (test hche=550) 0.51 K/ L 0.30-0.82 EOSINOPHILS ABSOLUTE COUNT (BEAKER) (test 0.20 K/ L 0.04-0.54 qgcv=575) BASOPHILS ABSOLUTE COUNT (BEAKER) (test itgg=637) 0.01 K/ L 0.01-0.08 IMMATURE GRANULOCYTES-RELATIVE PERCENT (BEAKER) 1 % 0-1 (test siyk=3453) (MANUAL DIFFERENTIAL)2018-01-02 07:14:00 Test Item Value Reference Range Comments TOTAL COUNTED (BEAKER) (test dmnt=3193) CALCIUM, [id number] 07:04:00 Test Item Value Reference Range Comments CALCIUM IONIZED (BEAKER) (test xdku=710) 1.07 mmol/L 1.12-1.27 PH, BLOOD (BEAKER) (test jwcq=1923) 7.49 PROTHROMBIN [id number] 06:42:00 Test Item Value Reference Range Comments PROTIME (BEAKER) (test qvzm=709) 24.6 seconds 11.7-14.7 INR (BEAKER) (test beat=958) 2.2 <=5.9 RECOMMENDED COUMADIN/WARFARIN INR THERAPY RANGESSTANDARD DOSE: 2.0 - 3.0 Includes: PROPHYLAXIS forvenous thrombosis, systemic embolization; TREATMENT for venous thrombosis and/or pulmonary embolus.HIGH RISK: Target INR is 2.5-3.5 for patients with mechanical heart valves.CYTOMEGALOVIRUS ANTIBODY, [id number] 14:58:00 Test Item Value Reference Range Comments CYTOMEGALOVIRUS IGG ANTIBODY (BEAKER) (test Positive okbc=089) CYTOMEGALOVIRUS ANTIBODY, [id number] 14:58:00 Test Item Value Reference Range Comments CYTOMEGALOVIRUS IGM ANTIBODY (BEAKER) (test Negative ohmu=353) EBV-VCA ANTIBODY, [id number] 14:58:00 Test Item Value Reference Range Comments MARCELLUS-DAVIS VCA IGG (BEAKER) (test xcmf=469) Positive EBV-VCA ANTIBODY, [id number] 14:58:00 Test Item Value Reference Range Comments MARCELLUS-DAVIS VCA IGM (BEAKER) (test rdqf=140) Negative BODY FLUID CELL COUNT WITH [id number] 14:27:00 Test Item Value Reference Range Comments APPEARANCE FLUID (BEAKER) (test gunn=623) Slightly Hazy Clear COLOR FLUID (BEAKER) (test ptlm=440) Yellow Colorless, Straw RBC FLUID (BEAKER) (test zysv=897) 378 /cu mm <=1 ADJUSTED WBC FLUID (BEAKER) (test byog=3658) 84 /cu mm <=5 LINING CELLS (BEAKER) (test dckp=3806) 17 /cu mm <=1 NEUTROPHILS FLUID (BEAKER) (test ssow=8065) 1 % LYMPHS FLUID (BEAKER) (test ydvc=123) 14 % MONO/MACROPHAGE FLUID (BEAKER) (test 85 % vsei=280) EOSINOPHILS FLUID (BEAKER) (test tkqt=175) 0 % BASO FLUID (BEAKER) (test amzl=635) 0 % CONTAINER BODY FLUID (BEAKER) (test EDTA Tube blbp=3043) U/S, [id number] 11:17:00Reason for exam:->ascitesFINAL REPORT Ultrasound guided paracentesis, 01/01/2018. Clinical History:Ascites. Sedation: None. [employer] Administrator: Paul Butler MD Chief Of [employer] Patrol: None. Estimated Blood Loss: < 1 cc. [...] was achieved with 1% lidocaine, a 5 Portuguese one-step catheter was advanced into the peritoneal cavity under ultrasound guidance. After completion of drainage, the catheter was removed. There was no evidence ofcomplication. Patient Disposition: The patient was transferred to the inpatient unit from the ultrasound department after the paracentesis, in good condition. Impression:Successful ultrasound guided paracentesis. Signed: [facility] Verified Date/Time: 01/01/2018 11:17:26 Reading Location: [address] Ultrasound Reading Room CBC W/PLT COUNT & AUTO [id number] 08:55:00 Test Item Value Reference Range Comments WHITE BLOOD CELL COUNT (BEAKER) (test bqdg=574) 2.6 K/ L 3.5-10.5 RED BLOOD CELL COUNT (BEAKER) (test uywy=999) 2.17 M/ L 4.63-6.08 HEMOGLOBIN (BEAKER) (test awhq=192) 6.9 GM/DL 13.7-17.5 HEMATOCRIT (BEAKER) (test eioj=182) 20.6 % 40.1-51.0 MEAN CORPUSCULAR VOLUME (BEAKER) (test vnih=897) 94.9 fL 79.0-92.2 MEAN CORPUSCULAR HEMOGLOBIN (BEAKER) (test 31.8 pg 25.7-32.2 pqtj=335) MEAN CORPUSCULAR HEMOGLOBIN CONC (BEAKER) (test 33.5 GM/DL 32.3-36.5 mfsb=478) RED CELL DISTRIBUTION WIDTH (BEAKER) (test 17.0 % 11.6-14.4 jwgg=867) PLATELET COUNT (BEAKER) (test qzxz=302) 43 K/CU MM 150-450 MEAN PLATELET VOLUME (BEAKER) (test rlsj=023) 9.3 fL 9.4-12.4 NUCLEATED RED BLOOD CELLS (BEAKER) (test 0 /100 WBC 0-0 bmfh=251) NEUTROPHILS RELATIVE PERCENT (BEAKER) (test 62 % eomx=383) LYMPHOCYTES RELATIVE PERCENT (BEAKER) (test 13 % qdou=920) MONOCYTES RELATIVE PERCENT (BEAKER) (test 18 % vrmw=316) EOSINOPHILS RELATIVE PERCENT (BEAKER) (test 6 % cutg=772) BASOPHILS RELATIVE PERCENT (BEAKER) (test 0 % vwkz=273) NEUTROPHILS ABSOLUTE COUNT (BEAKER) (test 1.58 K/ L 1.78-5.38 bfme=476) LYMPHOCYTES ABSOLUTE COUNT (BEAKER) (test 0.33 K/ L 1.32-3.57 tupo=750) MONOCYTES ABSOLUTE COUNT (BEAKER) (test biwc=848) 0.46 K/ L 0.30-0.82 EOSINOPHILS ABSOLUTE COUNT (BEAKER) (test 0.15 K/ L 0.04-0.54 ytql=867) BASOPHILS ABSOLUTE COUNT (BEAKER) (test wkqi=434) 0.01 K/ L 0.01-0.08 IMMATURE GRANULOCYTES-RELATIVE PERCENT (BEAKER) 1 % 0-1 (test cyzx=9189) (MANUAL DIFFERENTIAL)2018-01-01 08:55:00 Test Item Value Reference Range Comments TOTAL COUNTED (BEAKER) (test nvtq=4848) CALCIUM, [id number] 07:43:00 Test Item Value Reference Range Comments CALCIUM IONIZED (BEAKER) (test kahc=679) 1.14 mmol/L 1.12-1.27 PH, BLOOD (BEAKER) (test mcsz=8812) 7.52 [id number] 06:11:00 Test Item Value Reference Range Comments PHOSPHORUS (BEAKER) (test asrl=468) 2.5 mg/dL 2.3-4.7 [id number] 06:11:00 Test Item Value Reference Range Comments MAGNESIUM (BEAKER) (test hyjl=767) 1.7 mg/dL 1.6-2.6 COMPREHENSIVE METABOLIC [id number] 06:11:00 Test Item Value Reference Range Comments TOTAL PROTEIN (BEAKER) 5.6 gm/dL 6.0-8.3 (test axih=719) ALBUMIN (BEAKER) (test 3.6 g/dL 3.5-5.0 ydao=5822) ALKALINE PHOSPHATASE 68 U/L 40-150 (BEAKER) (test byzr=391) BILIRUBIN TOTAL (BEAKER) 2.7 mg/dL 0.2-1.2 (test ocfb=385) SODIUM (BEAKER) (test 132 meq/L 136-145 dbnn=515) POTASSIUM (BEAKER) (test 4.9 meq/L 3.5-5.1 kuww=606) CHLORIDE (BEAKER) (test 102 meq/L 98-107 mbxf=808) CO2 (BEAKER) (test 24 meq/L 22-29 mvnp=609) BLOOD UREA NITROGEN 20 mg/dL 7-21 (BEAKER) (test bwey=993) CREATININE (BEAKER) (test 1.17 mg/dL 0.57-1.25 oajp=073) GLUCOSE RANDOM (BEAKER) 92 mg/dL 70-105 (test rtra=305) CALCIUM (BEAKER) (test 9.7 mg/dL 8.4-10.2 ibxh=599) AST (SGOT) (BEAKER) (test 16 U/L 5-34 dhdm=605) ALT (SGPT) (BEAKER) (test 8 U/L 6-55 tdwc=311) EGFR (BEAKER) (test 65 mL/min/1.73 sq m ESTIMATED GFR IS NOT quqa=7576) ACCURATE CREATININE CLEARANCE IN PREDICTING GLOMERULAR FILTRATION RATE. ESTIMATED GFR IS NOT APPLICABLE FOR DIALYSIS PATIENTS. Specimen slightly ictericPROTHROMBIN TIME/[id number] 06:00:00 Test Item Value Reference Range Comments PROTIME (TUNG) (test cyfx=786) 24.0 seconds 11.7-14.7 INR (TUNG) (test yhuz=720) 2.2 <=5.9 RECOMMENDED COUMADIN/WARFARIN INR THERAPY RANGESSTANDARD DOSE: 2.0 - 3.0 Includes: PROPHYLAXIS forvenous thrombosis, systemic embolization; TREATMENT for venous thrombosis and/or pulmonary embolus.HIGH RISK: Target INR is 2.5-3.5 for patients with mechanical heart valves.CT, CHEST, WITHOUT [id number] 19:24:00FINAL REPORT HISTORY: Lung nodule, >=1cm COMPARISON [...] MDReport Verified Date/Time: 12/31/2017 19:24:12 Reading Location: [facility] [id number] Consult Reading Room 07: 24 PMPERIPHERAL BLOOD SMEAR - HOLD [id number] 19:18:00 Test Item Value Reference Range Comments PERIPHERAL SMEAR SAVE (BEAKER) prepared and saved smear, (test nkqd=4443) 12/31/17 RETICULOCYTE [id number] 19:14:00 Test Item Value Reference Range Comments RETICULOCYTE COUNT PCT (BEAKER) (test bwvn=448) 3.5 % 0.5-1.8 LACTATE DEHYDROGENASE (LDH)2017-12-31 17:47:00 Test Item Value Reference Range Comments LACTATE DEHYDROGENASE (BEAKER) (test udlt=044) 112 U/L 125-220 BLOOD GAS, [id number] 17:27:00 Test Item Value Reference Range Comments PH ARTERIAL (BEAKER) (test gsln=589) 7.45 7.35-7.45 PCO2 ARTERIAL (BEAKER) (test bpyv=673) 36 mmHg 35-45 PO2 ARTERIAL (BEAKER) (test qlyq=125) 76 mmHg 80-90 O2 SATURATION ARTERIAL (BEAKER) (test dzsh=856) 96.1 % 96.0-97.0 HCO3 ARTERIAL (BEAKER) (test sbqr=423) 24 mmol/L 21-29 BASE EXCESS ARTERIAL (BEAKER) (test mqis=236) 0.2 mmol/L -2.0-3.0 PATIENT TEMPERATURE (BEAKER) (test htvm=9680) 36.4 C FIO2 (BEAKER) (test bhgq=5235) 21.0 % MYOCARD IMAGING, MULTI, PHARM, [id number] 15:12:00FINAL REPORT PROCEDURE: Rest/Stress MYOCARDIAL PERFUSION SPECT with regadenoson\\XA9\\ CPT CODE: 15307 INDICATION: Liver transplant evaluation HISTORY: Cardiac risk [...] Normal extracardiac tracer distribution. 6. No previous [facility] study for comparison. NONINVASIVE RISK STRATIFICATION: The above findings are considered low risk (<1% annual mortality rate) based on the following criterion:- Normal orsmall myocardial perfusion defect at rest or with stress(JACC. 2012;59(9):857-81.) Signed: Quinten Napier Verified Date/Time: 12/31/2017 15:12:03 Reading Location: [address] Reading Room BILIRUBIN, [id number] 14:10:00 Test Item Value Reference Range Comments BILIRUBIN DIRECT (BEAKER) (test oguz=357) 1.6 mg/dL 0.1-0.5 HEMOGLOBIN AND [id number] 13:22:00 Test Item Value Reference Range Comments HEMOGLOBIN (BEAKER) (test sfom=653) 7.3 GM/DL 13.7-17.5 HEMATOCRIT (BEAKER) (test nzck=668) 21.9 % 40.1-51.0 CBC W/PLT COUNT & AUTO [id number] 11:06:00 Test Item Value Reference Range Comments WHITE BLOOD CELL COUNT (BEAKER) (test zqmm=967) 2.2 K/ L 3.5-10.5 RED BLOOD CELL COUNT (BEAKER) (test txrh=531) 2.07 M/ L 4.63-6.08 HEMOGLOBIN (BEAKER) (test lygf=643) 6.8 GM/DL 13.7-17.5 HEMATOCRIT (BEAKER) (test alag=131) 19.6 % 40.1-51.0 MEAN CORPUSCULAR VOLUME (BEAKER) (test clfz=668) 94.7 fL 79.0-92.2 MEAN CORPUSCULAR HEMOGLOBIN (BEAKER) (test 32.9 pg 25.7-32.2 fdps=875) MEAN CORPUSCULAR HEMOGLOBIN CONC (BEAKER) (test 34.7 GM/DL 32.3-36.5 avpz=818) RED CELL DISTRIBUTION WIDTH (BEAKER) (test 16.9 % 11.6-14.4 aisk=372) PLATELET COUNT (BEAKER) (test ykvi=464) 47 K/CU MM 150-450 MEAN PLATELET VOLUME (BEAKER) (test emqv=306) 9.7 fL 9.4-12.4 NUCLEATED RED BLOOD CELLS (BEAKER) (test 0 /100 WBC 0-0 pday=465) NEUTROPHILS RELATIVE PERCENT (BEAKER) (test 54 % vlcv=031) LYMPHOCYTES RELATIVE PERCENT (BEAKER) (test 17 % hczg=729) MONOCYTES RELATIVE PERCENT (BEAKER) (test 21 % yets=984) EOSINOPHILS RELATIVE PERCENT (BEAKER) (test 8 % sevr=465) BASOPHILS RELATIVE PERCENT (BEAKER) (test 1 % aptg=976) NEUTROPHILS ABSOLUTE COUNT (BEAKER) (test 1.17 K/ L 1.78-5.38 yeoz=101) LYMPHOCYTES ABSOLUTE COUNT (BEAKER) (test 0.36 K/ L 1.32-3.57 jtfu=840) MONOCYTES ABSOLUTE COUNT (BEAKER) (test teej=206) 0.45 K/ L 0.30-0.82 EOSINOPHILS ABSOLUTE COUNT (BEAKER) (test 0.17 K/ L 0.04-0.54 yjso=261) BASOPHILS ABSOLUTE COUNT (BEAKER) (test ekuk=339) 0.01 K/ L 0.01-0.08 IMMATURE GRANULOCYTES-RELATIVE PERCENT (BEAKER) 1 % 0-1 (test ksem=6851) (MANUAL DIFFERENTIAL)2017-12-31 11:06:00 Test Item Value Reference Range Comments TOTAL COUNTED (BEAKER) (test wtst=7734) [id number] 08:37:00 Test Item Value Reference Range Comments PROTIME (BEAKER) (test ljbk=602) 24.0 seconds 11.7-14.7 INR (BEAKER) (test yjtw=408) 2.2 <=5.9 PARTIAL THROMBOPLASTIN TIME (BEAKER) (test 55.2 seconds 22.5-36.0 wllk=356) RECOMMENDED COUMADIN/WARFARIN INR THERAPY RANGESSTANDARD DOSE: 2.0 - 3.0 Includes: PROPHYLAXIS forvenous thrombosis, systemic embolization; TREATMENT for venous thrombosis and/or pulmonary embolus.HIGH RISK: Target INR is 2.5-3.5 for patients with mechanical heart valves.COMPREHENSIVE METABOLIC [id number] 06:37:00 Test Item Value Reference Range Comments TOTAL PROTEIN (BEAKER) 5.7 gm/dL 6.0-8.3 (test mije=916) ALBUMIN (BEAKER) (test 3.7 g/dL 3.5-5.0 cjiw=7299) ALKALINE PHOSPHATASE 70 U/L 40-150 (BEAKER) (test jwtp=703) BILIRUBIN TOTAL (BEAKER) 2.6 mg/dL 0.2-1.2 (test xagt=053) SODIUM (BEAKER) (test 130 meq/L 136-145 sogx=729) POTASSIUM (BEAKER) (test 5.2 meq/L 3.5-5.1 detc=535) CHLORIDE (BEAKER) (test 100 meq/L 98-107 xdif=715) CO2 (BEAKER) (test 25 meq/L 22-29 unne=379) BLOOD UREA NITROGEN 20 mg/dL 7-21 (BEAKER) (test cteq=937) CREATININE (BEAKER) (test 1.08 mg/dL 0.57-1.25 mxdm=502) GLUCOSE RANDOM (BEAKER) 91 mg/dL 70-105 (test otvd=475) CALCIUM (BEAKER) (test 9.6 mg/dL 8.4-10.2 iqev=033) AST (SGOT) (BEAKER) (test 16 U/L 5-34 drba=281) ALT (SGPT) (BEAKER) (test 6 U/L 6-55 mbuz=839) EGFR (BEAKER) (test 72 mL/min/1.73 sq m ESTIMATED GFR IS NOT fwix=0633) ACCURATE CREATININE CLEARANCE IN PREDICTING GLOMERULAR FILTRATION RATE. ESTIMATED GFR IS NOT APPLICABLE FOR DIALYSIS PATIENTS. Specimen slightly [id number] 06:01:00 Test Item Value Reference Range Comments RPR SCREEN (BEAKER) (test frtb=069) Nonreactive Nonreactive CRYPTOCOCCAL [id number] 05:59:00 Test Item Value Reference Range Comments CRYPTOCOCCAL ANTIGEN, SERUM (BEAKER) (test Negative Negative, Interference pigl=1587) RAD, MANDIBLE, MIN 4 [id number] 01:37:00Reason for exam:->liver transplant evalShould this be [...] Barcenas Verified Date/Time: 12/31/2017 01:37:57 Reading Location: [address] Reading Room Electronically signed by: SLICK BARCENAS M.D. on 04/2018 01:37 AMRAD, CHEST, 2 [id number] 23:32:00Reason for exam:-> liver transplant evalShould this [...] Barcenas Verified Date/Time: 12/30/2017 23:32:31 Reading Location: [address] Reading Room HEMOGLOBIN [id number] 22:54:00 Test Item Value Reference Range Comments HEMOGLOBIN A1C (BEAKER) (test llgo=194) 4.1 % 4.3-6.1 HEPATITIS B SURFACE [id number] 16:31:00 Test Item Value Reference Range Comments HEPATITIS B SURFACE ANTIBODY (BEAKER) (test < mIU/mL <8.0 gmff=749) HEPATITIS B SURFACE [id number] 16:29:00 Test Item Value Reference Range Comments HEPATITIS B SURFACE ANTIGEN (2) (BEAKER) (test Nonreactive Nonreactive vfqx=8333) HEPATITIS B CORE ANTIBODY, [id number] 16:29:00 Test Item Value Reference Range Comments HEPATITIS B CORE IGM ANTIBODY (BEAKER) (test Nonreactive Nonreactive xjck=860) HEPATITIS A ANTIBODY, [id number] 16:29:00 Test Item Value Reference Range Comments HEPATITIS A IGM ANTIBODY (BEAKER) (test Nonreactive Nonreactive wret=282) HEPATITIS B CORE ANTIBODY, [id number] 16:29:00 Test Item Value Reference Range Comments HEPATITIS B CORE TOTAL ANTIBODY (BEAKER) (test Nonreactive Nonreactive jmpt=502) [id number] 16:26:00 Test Item Value Reference Range Comments T4 TOTAL (BEAKER) (test otxm=936) 3.5 ug/dL 4.9-11.7 [id number] 16:26:00 Test Item Value Reference Range Comments T3 TOTAL (BEAKER) (test xkpk=700) 42 ng/dL 48-159 [id number] 16:24:00 Test Item Value Reference Range Comments FERRITIN (BEAKER) (test rxif=050) 1460 ng/mL 5-275 VITAMIN D, [id number] 16:24:00 Test Item Value Reference Range Comments VITAMIN D 25-OH (BEAKER) (test svkf=6642) 6.9 ng/mL 6.6-49.9 Effective 08/06/2017: Reference Range ChangeNew: 6.6-49.9 ng/mL Previous: 13.0 -47.8 ng/mLRecommended Vitamin D Target Range: 30.0-40.0 ng/[id number] 16: 24:00 Test Item Value Reference Range Comments THYROID STIMULATING HORMONE (BEAKER) (test 1.55 uIU/mL 0.35-4.94 qlqi=795) CARCINOEMBRYONIC ANTIGEN (CEA)2017-12-30 16:24:00 Test Item Value Reference Range Comments CARCINOEMBRYONIC ANTIGEN (BEAKER) (test gnvx=306) 3.0 ng/mL 0.0-5.0 [id number] 16:23:00 Test Item Value Reference Range Comments PROSTATE SPECIFIC ANTIGEN (BEAKER) (test ewal=095) 0.1 ng/mL 0.0-4.0 HIV-1 ANTIGEN WITH HIV-1/2 [id number] 16:23:00 Test Item Value Reference Range Comments HIV-1 ANTIGEN WITH HIV 1\\T\\2 ANTIBODY (2) Nonreactive Nonreactive (BEAKER) (test djuo=1830) HEPATITIS C [id number] 16:23:00 Test Item Value Reference Range Comments HEPATITIS C ANTIBODY (BEAKER) (test ejof=102) Nonreactive Nonreactive LIPID [id number] 16:06:00 Test Item Value Reference Range Comments TRIGLYCERIDES (BEAKER) (test djbv=056) 38 mg/dL CHOLESTEROL (BEAKER) (test fvsu=538) 51 mg/dL HDL CHOLESTEROL (BEAKER) (test vpvh=995) 10 mg/dL LDL CHOLESTEROL CALCULATED (BEAKER) (test pqqi=236) 33 mg/dL Triglyceride Reference Range: Low Risk [...] Value Reference Range Comments IRON (BEAKER) (test bggv=767) 90 ug/dL 40-160 TOTAL IRON BINDING CAPACITY (BEAKER) (test 85 ug/dL 250-450 gsmy=978) IRON % SATURATION (2) (BEAKER) (test vhvf=0495) 106 % 20-55 [id number] 16:04:00 Test Item Value Reference Range Comments TRANSFERRIN (BEAKER) (test bzra=318) 65 mg/dL 174-382 Specimen slightly ictericURIC [id number] 16:02:00 Test Item Value Reference Range Comments URIC ACID (BEAKER) (test kdxg=518) 8.5 mg/dL 2.6-7.2 Specimen slightly [id number] 15:50:00 Test Item Value Reference Range Comments FIBRINOGEN LEVEL (BEAKER) (test niwm=842) 161 mg/dl 225-434 BODY FLUID CULTURE + GRAM [id number] 11:45:00 Test Item Value Reference Range Comments CULTURE (BEAKER) (test zymv=2307) No growth GRAM STAIN RESULT (BEAKER) (test No WBCs bqrb=9051) GRAM STAIN RESULT (BEAKER) (test No organisms seen bcih=03320) CBC W/PLT COUNT & AUTO [id number] 08:05:00 Test Item Value Reference Range Comments WHITE BLOOD CELL COUNT (BEAKER) (test qpzc=341) 2.0 K/ L 3.5-10.5 RED BLOOD CELL COUNT (BEAKER) (test keqp=071) 2.20 M/ L 4.63-6.08 HEMOGLOBIN (BEAKER) (test fzbp=635) 7.1 GM/DL 13.7-17.5 HEMATOCRIT (BEAKER) (test efzo=082) 20.8 % 40.1-51.0 MEAN CORPUSCULAR VOLUME (BEAKER) (test dwqg=944) 94.5 fL 79.0-92.2 MEAN CORPUSCULAR HEMOGLOBIN (BEAKER) (test 32.3 pg 25.7-32.2 nnip=739) MEAN CORPUSCULAR HEMOGLOBIN CONC (BEAKER) (test 34.1 GM/DL 32.3-36.5 cdjp=181) RED CELL DISTRIBUTION WIDTH (BEAKER) (test 17.0 % 11.6-14.4 hqbf=599) PLATELET COUNT (BEAKER) (test ekbw=536) 52 K/CU MM 150-450 MEAN PLATELET VOLUME (BEAKER) (test xmta=617) 10.7 fL 9.4-12.4 NUCLEATED RED BLOOD CELLS (BEAKER) (test 0 /100 WBC 0-0 wtat=153) NEUTROPHILS RELATIVE PERCENT (BEAKER) (test 55 % fpls=231) LYMPHOCYTES RELATIVE PERCENT (BEAKER) (test 16 % syiu=654) MONOCYTES RELATIVE PERCENT (BEAKER) (test 20 % kqmq=901) EOSINOPHILS RELATIVE PERCENT (BEAKER) (test 8 % wcpj=116) BASOPHILS RELATIVE PERCENT (BEAKER) (test 1 % dutn=744) NEUTROPHILS ABSOLUTE COUNT (BEAKER) (test 1.10 K/ L 1.78-5.38 iouc=402) LYMPHOCYTES ABSOLUTE COUNT (BEAKER) (test 0.32 K/ L 1.32-3.57 spoz=445) MONOCYTES ABSOLUTE COUNT (BEAKER) (test luit=846) 0.40 K/ L 0.30-0.82 EOSINOPHILS ABSOLUTE COUNT (BEAKER) (test 0.16 K/ L 0.04-0.54 sifu=847) BASOPHILS ABSOLUTE COUNT (BEAKER) (test fbtg=471) 0.01 K/ L 0.01-0.08 IMMATURE GRANULOCYTES-RELATIVE PERCENT (BEAKER) 1 % 0-1 (test pohc=4375) (MANUAL DIFFERENTIAL)2017-12-30 08:05:00 Test Item Value Reference Range Comments TOTAL COUNTED (BEAKER) (test bpec=5473) URINALYSIS W/ [id number] 06:46:00 Test Item Value Reference Range Comments COLOR (BEAKER) (test faei=052) Yellow CLARITY (BEAKER) (test ipao=143) Clear SPECIFIC GRAVITY UA (BEAKER) (test smpu=982) 1.008 1.001-1.035 PH UA (BEAKER) (test ogkb=975) 6.0 5.0-8.0 PROTEIN UA (BEAKER) (test dxqt=646) Negative Negative GLUCOSE UA (BEAKER) (test jwhv=072) Negative Negative KETONES UA (BEAKER) (test zxhr=377) Negative Negative BILIRUBIN UA (BEAKER) (test hadk=879) Negative Negative BLOOD UA (BEAKER) (test jtxw=381) Negative Negative NITRITE UA (BEAKER) (test nawk=485) Negative Negative LEUKOCYTE ESTERASE UA (BEAKER) (test qulv=540) Negative Negative UROBILINOGEN UA (BEAKER) (test zxvx=591) 0.2 mg/dL 0.2-1.0 RBC UA (BEAKER) (test afbm=617) 0 /HPF WBC UA (BEAKER) (test vxxr=196) 0 /HPF HYALINE CASTS (BEAKER) (test qyrg=650) 5 /LPF SOURCE(BEAKER) (test lkut=0400) Urine, Voided SODIUM, RANDOM [id number] 06:35:00 Test Item Value Reference Range Comments SODIUM URINE (BEAKER) (test jmsj=586) < meq/L Reference Range: No NormalsPROTEIN, RANDOM [id number] 06:35:00 Test Item Value Reference Range Comments PROTEIN, URINE (BEAKER) (test bisp=1455) < mg/dL 0-14 [id number] 06:21:00 Test Item Value Reference Range Comments MAGNESIUM (BEAKER) (test 1.8 mg/dL 1.6-2.6 Specimen slightly hemolyzed tqkj=151) [id number] 06:21:00 Test Item Value Reference Range Comments PHOSPHORUS (BEAKER) (test 2.9 mg/dL 2.3-4.7 Specimen slightly hemolyzed zprg=964) COMPREHENSIVE METABOLIC [id number] 06:21:00 Test Item Value Reference Range Comments TOTAL PROTEIN (BEAKER) 5.6 gm/dL 6.0-8.3 Specimen slightly (test tfom=953) hemolyzed ALBUMIN (BEAKER) (test 3.5 g/dL 3.5-5.0 Specimen slightly xnby=8838) hemolyzed ALKALINE PHOSPHATASE 75 U/L 40-150 (BEAKER) (test pipe=352) BILIRUBIN TOTAL (BEAKER) 3.0 mg/dL 0.2-1.2 Specimen slightly (test deph=558) hemolyzed SODIUM (BEAKER) (test 127 meq/L 136-145 mdmq=376) POTASSIUM (BEAKER) (test 5.2 meq/L 3.5-5.1 Specimen slightly djlb=563) hemolyzed CHLORIDE (BEAKER) (test 97 meq/L 98-107 lbpj=162) CO2 (BEAKER) (test 24 meq/L 22-29 urhs=616) BLOOD UREA NITROGEN 22 mg/dL 7-21 (BEAKER) (test gshk=865) CREATININE (BEAKER) (test 1.11 mg/dL 0.57-1.25 Specimen slightly gwaw=932) hemolyzed GLUCOSE RANDOM (BEAKER) 94 mg/dL 70-105 (test snwe=313) CALCIUM (BEAKER) (test 9.4 mg/dL 8.4-10.2 wats=183) AST (SGOT) (BEAKER) (test 22 U/L 5-34 Specimen slightly ggda=205) hemolyzed ALT (SGPT) (BEAKER) (test 7 U/L 6-55 Specimen slightly jhcm=606) hemolyzed EGFR (BEAKER) (test 70 mL/min/1.73 sq m ESTIMATED GFR IS NOT bfyy=7205) ACCURATE CREATININE CLEARANCE IN PREDICTING GLOMERULAR FILTRATION RATE. ESTIMATED GFR IS NOT APPLICABLE FOR DIALYSIS PATIENTS. Specimen slightly ictericCREATININE, RANDOM [id number] 06:19:00 Test Item Value Reference Range Comments CREATININE URINE (BEAKER) (test rmqt=197) 60.6 mg/dL Reference Range: No [id number] 13:43:00 Test Item Value Reference Range Comments ETHANOL (BEAKER) (test usum=961) < mg/dL <=10 COMPREHENSIVE METABOLIC [id number] 08:23:00 Test Item Value Reference Range Comments TOTAL PROTEIN (BEAKER) 5.5 gm/dL 6.0-8.3 (test thcl=015) ALBUMIN (BEAKER) (test 3.3 g/dL 3.5-5.0 gisv=6591) ALKALINE PHOSPHATASE 85 U/L 40-150 (BEAKER) (test ivae=570) BILIRUBIN TOTAL (BEAKER) 3.8 mg/dL 0.2-1.2 (test zuuu=756) SODIUM (BEAKER) (test 125 meq/L 136-145 ioys=132) POTASSIUM (BEAKER) (test 4.7 meq/L 3.5-5.1 mqlq=170) CHLORIDE (BEAKER) (test 96 meq/L 98-107 bnfw=237) CO2 (BEAKER) (test 21 meq/L 22-29 fzpx=281) BLOOD UREA NITROGEN 22 mg/dL 7-21 (BEAKER) (test brmj=672) CREATININE (BEAKER) (test 1.26 mg/dL 0.57-1.25 wmcd=260) GLUCOSE RANDOM (BEAKER) 95 mg/dL 70-105 (test sykv=021) CALCIUM (BEAKER) (test 9.1 mg/dL 8.4-10.2 eqgk=440) AST (SGOT) (BEAKER) (test 20 U/L 5-34 kflu=848) ALT (SGPT) (BEAKER) (test 8 U/L 6-55 qptg=854) EGFR (BEAKER) (test 60 mL/min/1.73 sq m ESTIMATED GFR IS NOT gexu=1792) ACCURATE CREATININE CLEARANCE IN PREDICTING GLOMERULAR FILTRATION RATE. ESTIMATED GFR IS NOT APPLICABLE FOR DIALYSIS PATIENTS. Specimen slightly ictericCBC W/PLT COUNT & AUTO [id number] 07:17 :00 Test Item Value Reference Range Comments WHITE BLOOD CELL COUNT (BEAKER) (test rkah=686) 2.8 K/ L 3.5-10.5 RED BLOOD CELL COUNT (BEAKER) (test qtmj=226) 2.28 M/ L 4.63-6.08 HEMOGLOBIN (BEAKER) (test lepw=715) 7.3 GM/DL 13.7-17.5 HEMATOCRIT (BEAKER) (test uanx=810) 21.4 % 40.1-51.0 MEAN CORPUSCULAR VOLUME (BEAKER) (test hosw=089) 93.9 fL 79.0-92.2 MEAN CORPUSCULAR HEMOGLOBIN (BEAKER) (test 32.0 pg 25.7-32.2 ubwf=302) MEAN CORPUSCULAR HEMOGLOBIN CONC (BEAKER) (test 34.1 GM/DL 32.3-36.5 buyt=344) RED CELL DISTRIBUTION WIDTH (BEAKER) (test 16.9 % 11.6-14.4 aale=985) PLATELET COUNT (BEAKER) (test aubi=968) 52 K/CU MM 150-450 MEAN PLATELET VOLUME (BEAKER) (test hqvt=676) 9.8 fL 9.4-12.4 NUCLEATED RED BLOOD CELLS (BEAKER) (test 0 /100 WBC 0-0 sxpu=042) NEUTROPHILS RELATIVE PERCENT (BEAKER) (test 61 % mjvc=522) LYMPHOCYTES RELATIVE PERCENT (BEAKER) (test 14 % pevp=270) MONOCYTES RELATIVE PERCENT (BEAKER) (test 18 % bqdn=362) EOSINOPHILS RELATIVE PERCENT (BEAKER) (test 7 % hydc=624) BASOPHILS RELATIVE PERCENT (BEAKER) (test 0 % ecdh=362) NEUTROPHILS ABSOLUTE COUNT (BEAKER) (test 1.69 K/ L 1.78-5.38 akzj=441) LYMPHOCYTES ABSOLUTE COUNT (BEAKER) (test 0.38 K/ L 1.32-3.57 wuub=963) MONOCYTES ABSOLUTE COUNT (BEAKER) (test hpuo=410) 0.51 K/ L 0.30-0.82 EOSINOPHILS ABSOLUTE COUNT (BEAKER) (test 0.18 K/ L 0.04-0.54 xuaa=210) BASOPHILS ABSOLUTE COUNT (BEAKER) (test awpv=118) 0.01 K/ L 0.01-0.08 IMMATURE GRANULOCYTES-RELATIVE PERCENT (BEAKER) 1 % 0-1 (test oawp=2442) CT, [id number] 22:20:00FINAL REPORT EXAM: CT of the abdomen [...] Verified Date/Time: 12/28/2017 22:20:52 Reading Location: [address] Transitional Reading Room CBC W/PLT COUNT & AUTO [id number] 18:06:00 Test Item Value Reference Range Comments WHITE BLOOD CELL COUNT (BEAKER) (test oscv=546) 2.9 K/ L 3.5-10.5 RED BLOOD CELL COUNT (BEAKER) (test fsbk=710) 2.03 M/ L 4.63-6.08 HEMOGLOBIN (BEAKER) (test jqdz=720) 6.5 GM/DL 13.7-17.5 HEMATOCRIT (BEAKER) (test tqjg=748) 19.2 % 40.1-51.0 MEAN CORPUSCULAR VOLUME (BEAKER) (test xbwr=849) 94.6 fL 79.0-92.2 MEAN CORPUSCULAR HEMOGLOBIN (BEAKER) (test 32.0 pg 25.7-32.2 pysd=948) MEAN CORPUSCULAR HEMOGLOBIN CONC (BEAKER) (test 33.9 GM/DL 32.3-36.5 hngz=208) RED CELL DISTRIBUTION WIDTH (BEAKER) (test 17.6 % 11.6-14.4 iocz=792) PLATELET COUNT (BEAKER) (test fxdc=304) 46 K/CU MM 150-450 MEAN PLATELET VOLUME (BEAKER) (test fisz=452) 9.3 fL 9.4-12.4 NUCLEATED RED BLOOD CELLS (BEAKER) (test 0 /100 WBC 0-0 gycl=486) NEUTROPHILS RELATIVE PERCENT (BEAKER) (test 66 % lfqw=561) LYMPHOCYTES RELATIVE PERCENT (BEAKER) (test 12 % zkjw=652) MONOCYTES RELATIVE PERCENT (BEAKER) (test 15 % yykd=834) EOSINOPHILS RELATIVE PERCENT (BEAKER) (test 6 % faip=031) BASOPHILS RELATIVE PERCENT (BEAKER) (test 0 % wbjp=212) NEUTROPHILS ABSOLUTE COUNT (BEAKER) (test 1.92 K/ L 1.78-5.38 lvcm=885) LYMPHOCYTES ABSOLUTE COUNT (BEAKER) (test 0.36 K/ L 1.32-3.57 swkp=218) MONOCYTES ABSOLUTE COUNT (BEAKER) (test hmuj=041) 0.44 K/ L 0.30-0.82 EOSINOPHILS ABSOLUTE COUNT (BEAKER) (test 0.16 K/ L 0.04-0.54 kdbc=323) BASOPHILS ABSOLUTE COUNT (BEAKER) (test zyfh=970) 0.01 K/ L 0.01-0.08 IMMATURE GRANULOCYTES-RELATIVE PERCENT (BEAKER) 1 % 0-1 (test tysb=9732) CBC W/PLT COUNT & AUTO [id number] 12:30:00 Test Item Value Reference Range Comments WHITE BLOOD CELL COUNT (BEAKER) (test asjh=259) 3.1 K/ L 3.5-10.5 RED BLOOD CELL COUNT (BEAKER) (test cbet=246) 2.09 M/ L 4.63-6.08 HEMOGLOBIN (BEAKER) (test ocxd=035) 6.8 GM/DL 13.7-17.5 HEMATOCRIT (BEAKER) (test mtfh=217) 19.9 % 40.1-51.0 MEAN CORPUSCULAR VOLUME (BEAKER) (test nirz=400) 95.2 fL 79.0-92.2 MEAN CORPUSCULAR HEMOGLOBIN (BEAKER) (test 32.5 pg 25.7-32.2 czrn=013) MEAN CORPUSCULAR HEMOGLOBIN CONC (BEAKER) (test 34.2 GM/DL 32.3-36.5 qrul=648) RED CELL DISTRIBUTION WIDTH (BEAKER) (test 17.5 % 11.6-14.4 kbql=170) PLATELET COUNT (BEAKER) (test fdde=300) 65 K/CU MM 150-450 MEAN PLATELET VOLUME (BEAKER) (test vcuj=665) 10.6 fL 9.4-12.4 NUCLEATED RED BLOOD CELLS (BEAKER) (test 0 /100 WBC 0-0 kjsk=521) NEUTROPHILS RELATIVE PERCENT (BEAKER) (test 60 % hjla=868) LYMPHOCYTES RELATIVE PERCENT (BEAKER) (test 14 % pscm=704) MONOCYTES RELATIVE PERCENT (BEAKER) (test 17 % fwrw=827) EOSINOPHILS RELATIVE PERCENT (BEAKER) (test 8 % gare=658) BASOPHILS RELATIVE PERCENT (BEAKER) (test 0 % rrlg=136) NEUTROPHILS ABSOLUTE COUNT (BEAKER) (test 1.85 K/ L 1.78-5.38 mffz=798) LYMPHOCYTES ABSOLUTE COUNT (BEAKER) (test 0.42 K/ L 1.32-3.57 nuwa=734) MONOCYTES ABSOLUTE COUNT (BEAKER) (test edmr=822) 0.52 K/ L 0.30-0.82 EOSINOPHILS ABSOLUTE COUNT (BEAKER) (test 0.26 K/ L 0.04-0.54 pvbi=669) BASOPHILS ABSOLUTE COUNT (BEAKER) (test nuik=948) 0.01 K/ L 0.01-0.08 IMMATURE GRANULOCYTES-RELATIVE PERCENT (BEAKER) 1 % 0-1 (test mjaw=6587) U/S, [id number] 06:59:00Limit fluid removal to no more than 5 litersReason for exam:->ascites, concern for sbpShould thisbe performed at the bedside?->NoFINAL REPORT Paracentesis dated 2017 Procedure: Ultrasound-guided paracentesis. Preprocedure diagnosis: Ascites Postprocedure diagnosis: Ascites Conscious sedation: None. Radiologist: Lena Lynn M.D. [employer]: None Anesthesia: 1% Xylocaine mixed with sodium bicarbonate local anesthesia. Technique: After obtaining informed consent, ultrasound-guided paracentesis was performed under usual sterile technique. Using a 5 polish drainage catheter, puncture was made in the right lower quadrant abdomen. Approximately 5000 cc of serous fluid was removed. Patient tolerated the procedure well without complication. Complication: None Graft/ Implant: None Estimated Blood Loss: NoneImpression: Ultrasound-guided paracentesis. Signed: Lena Lynn Verified Date/Time: 12/28/2017 06:59 :16 Reading Location: [facility] B1 C013Y CT Body Reading Room ALPHA FETOPROTEIN (AFP), TUMOR [id number] 06:22:00 Test Item Value Reference Range Comments ALPHA-FETOPROTEIN (BEAKER) (test dfmq=1757) 4.1 ng/mL <10.0 COMPREHENSIVE METABOLIC [id number] 06:00:00 Test Item Value Reference Range Comments TOTAL PROTEIN (BEAKER) 5.3 gm/dL 6.0-8.3 (test adqk=188) ALBUMIN (BEAKER) (test 2.7 g/dL 3.5-5.0 ytoi=8826) ALKALINE PHOSPHATASE 94 U/L 40-150 (BEAKER) (test ghzr=850) BILIRUBIN TOTAL (BEAKER) 3.7 mg/dL 0.2-1.2 (test prgt=557) SODIUM (BEAKER) (test 124 meq/L 136-145 sumq=846) POTASSIUM (BEAKER) (test 4.6 meq/L 3.5-5.1 mnaq=166) CHLORIDE (BEAKER) (test 96 meq/L 98-107 lmvk=077) CO2 (BEAKER) (test 22 meq/L 22-29 gxkd=149) BLOOD UREA NITROGEN 22 mg/dL 7-21 (BEAKER) (test fblu=292) CREATININE (BEAKER) (test 1.40 mg/dL 0.57-1.25 mdgp=898) GLUCOSE RANDOM (BEAKER) 89 mg/dL 70-105 (test ifph=771) CALCIUM (BEAKER) (test 8.8 mg/dL 8.4-10.2 rkph=463) AST (SGOT) (BEAKER) (test 25 U/L 5-34 wjfr=546) ALT (SGPT) (BEAKER) (test 10 U/L 6-55 dhdp=014) EGFR (BEAKER) (test 53 mL/min/1.73 sq m ESTIMATED GFR IS NOT jzcq=4383) ACCURATE CREATININE CLEARANCE IN PREDICTING GLOMERULAR FILTRATION RATE. ESTIMATED GFR IS NOT APPLICABLE FOR DIALYSIS PATIENTS. Specimen slightly ictericCBC W/PLT COUNT & AUTO [id number] 05:50 :00 Test Item Value Reference Range Comments WHITE BLOOD CELL COUNT (BEAKER) (test cmcq=381) 3.1 K/ L 3.5-10.5 RED BLOOD CELL COUNT (BEAKER) (test gqmy=333) 2.00 M/ L 4.63-6.08 HEMOGLOBIN (BEAKER) (test mbje=789) 6.4 GM/DL 13.7-17.5 HEMATOCRIT (BEAKER) (test jxja=478) 18.9 % 40.1-51.0 MEAN CORPUSCULAR VOLUME (BEAKER) (test shxx=121) 94.5 fL 79.0-92.2 MEAN CORPUSCULAR HEMOGLOBIN (BEAKER) (test 32.0 pg 25.7-32.2 fgkv=374) MEAN CORPUSCULAR HEMOGLOBIN CONC (BEAKER) (test 33.9 GM/DL 32.3-36.5 dirf=709) RED CELL DISTRIBUTION WIDTH (BEAKER) (test 17.9 % 11.6-14.4 vios=779) PLATELET COUNT (BEAKER) (test wrsa=215) 59 K/CU MM 150-450 MEAN PLATELET VOLUME (BEAKER) (test nzej=311) 10.4 fL 9.4-12.4 NUCLEATED RED BLOOD CELLS (BEAKER) (test 0 /100 WBC 0-0 fcxf=954) NEUTROPHILS RELATIVE PERCENT (BEAKER) (test 63 % vfgw=734) LYMPHOCYTES RELATIVE PERCENT (BEAKER) (test 14 % kvaw=189) MONOCYTES RELATIVE PERCENT (BEAKER) (test 15 % dpqx=609) EOSINOPHILS RELATIVE PERCENT (BEAKER) (test 7 % aplv=542) BASOPHILS RELATIVE PERCENT (BEAKER) (test 0 % vazj=238) NEUTROPHILS ABSOLUTE COUNT (BEAKER) (test 1.94 K/ L 1.78-5.38 uhey=380) LYMPHOCYTES ABSOLUTE COUNT (BEAKER) (test 0.44 K/ L 1.32-3.57 fsuz=464) MONOCYTES ABSOLUTE COUNT (BEAKER) (test tjqj=024) 0.47 K/ L 0.30-0.82 EOSINOPHILS ABSOLUTE COUNT (BEAKER) (test 0.21 K/ L 0.04-0.54 pmsj=639) BASOPHILS ABSOLUTE COUNT (BEAKER) (test pykb=530) 0.01 K/ L 0.01-0.08 IMMATURE GRANULOCYTES-RELATIVE PERCENT (BEAKER) 1 % 0-1 (test qeav=5698) BODY FLUID CELL COUNT WITH [id number] 20:39:00 Test Item Value Reference Range Comments APPEARANCE FLUID (BEAKER) (test ouqr=672) Slightly Hazy Clear COLOR FLUID (BEAKER) (test srre=926) Yellow Colorless, Straw RBC FLUID (BEAKER) (test ieco=508) 90 /cu mm <=1 ADJUSTED WBC FLUID (BEAKER) (test xgwj=5973) 47 /cu mm <=5 LINING CELLS (BEAKER) (test ylhn=4249) 3 /cu mm <=1 NEUTROPHILS FLUID (BEAKER) (test zcjh=7100) 2 % LYMPHS FLUID (BEAKER) (test vwze=358) 19 % MONO/MACROPHAGE FLUID (BEAKER) (test 79 % cjqa=403) EOSINOPHILS FLUID (BEAKER) (test uopy=461) 0 % BASO FLUID (BEAKER) (test qzjs=382) 0 % CONTAINER BODY FLUID (BEAKER) (test EDTA Tube mtxi=8515) ALBUMIN, BODY [id number] 20:14:00 Test Item Value Reference Range Comments ALBUMIN FLUID (BEAKER) (test qwne=804) 0.4 gm/dL Reference Range: No Normals Assay performance has not been validated for this type of specimen.BASIC METABOLIC [id number] 10:31:00 Test Item Value Reference Range Comments SODIUM (BEAKER) (test 125 meq/L 136-145 rfeo=724) POTASSIUM (BEAKER) (test 4.5 meq/L 3.5-5.1 bbux=923) CHLORIDE (BEAKER) (test 98 meq/L 98-107 afgm=474) CO2 (BEAKER) (test 20 meq/L 22-29 jkqb=939) BLOOD UREA NITROGEN 22 mg/dL 7-21 (BEAKER) (test iyrp=477) CREATININE (BEAKER) (test 1.45 mg/dL 0.57-1.25 gaup=734) GLUCOSE RANDOM (BEAKER) 87 mg/dL 70-105 (test hnfn=055) CALCIUM (BEAKER) (test 8.6 mg/dL 8.4-10.2 qbbi=400) EGFR (BEAKER) (test 51 mL/min/1.73 sq m ESTIMATED GFR IS NOT ybhq=5549) ACCURATE CREATININE CLEARANCE IN PREDICTING GLOMERULAR FILTRATION RATE. ESTIMATED GFR IS NOT APPLICABLE FOR DIALYSIS PATIENTS. Specimen slightly ictericHEPATIC FUNCTION [id number] 10:31:00 Test Item Value Reference Range Comments TOTAL PROTEIN (BEAKER) (test rymz=191) 5.8 gm/dL 6.0-8.3 ALBUMIN (BEAKER) (test kwao=3791) 2.4 g/dL 3.5-5.0 BILIRUBIN TOTAL (BEAKER) (test kahm=266) 4.1 mg/dL 0.2-1.2 BILIRUBIN DIRECT (BEAKER) (test qjmm=857) 3.1 mg/dL 0.1-0.5 ALKALINE PHOSPHATASE (BEAKER) (test qdqf=708) 126 U/L 40-150 AST (SGOT) (BEAKER) (test fnmm=381) 28 U/L 5-34 ALT (SGPT) (BEAKER) (test eddk=278) 13 U/L 6-55 Specimen slightly ictericCBC W/PLT COUNT & AUTO [id number] 10:09 :00 Test Item Value Reference Range Comments WHITE BLOOD CELL COUNT (BEAKER) (test ufse=042) 5.5 K/ L 3.5-10.5 RED BLOOD CELL COUNT (BEAKER) (test wrsl=797) 2.56 M/ L 4.63-6.08 HEMOGLOBIN (BEAKER) (test bygi=959) 8.1 GM/DL 13.7-17.5 HEMATOCRIT (BEAKER) (test gxey=545) 24.2 % 40.1-51.0 MEAN CORPUSCULAR VOLUME (BEAKER) (test njdd=564) 94.5 fL 79.0-92.2 MEAN CORPUSCULAR HEMOGLOBIN (BEAKER) (test 31.6 pg 25.7-32.2 nqzj=115) MEAN CORPUSCULAR HEMOGLOBIN CONC (BEAKER) (test 33.5 GM/DL 32.3-36.5 rotj=365) RED CELL DISTRIBUTION WIDTH (BEAKER) (test 18.6 % 11.6-14.4 yics=690) PLATELET COUNT (BEAKER) (test jats=465) 86 K/CU MM 150-450 MEAN PLATELET VOLUME (BEAKER) (test sfoj=794) 9.7 fL 9.4-12.4 NUCLEATED RED BLOOD CELLS (BEAKER) (test 0 /100 WBC 0-0 jgtx=864) NEUTROPHILS RELATIVE PERCENT (BEAKER) (test 65 % sjey=322) LYMPHOCYTES RELATIVE PERCENT (BEAKER) (test 13 % gnnm=428) MONOCYTES RELATIVE PERCENT (BEAKER) (test 14 % fric=471) EOSINOPHILS RELATIVE PERCENT (BEAKER) (test 6 % eeov=854) BASOPHILS RELATIVE PERCENT (BEAKER) (test 0 % zlqe=332) NEUTROPHILS ABSOLUTE COUNT (BEAKER) (test 3.59 K/ L 1.78-5.38 ptif=102) LYMPHOCYTES ABSOLUTE COUNT (BEAKER) (test 0.73 K/ L 1.32-3.57 nydl=430) MONOCYTES ABSOLUTE COUNT (BEAKER) (test vbjn=709) 0.76 K/ L 0.30-0.82 EOSINOPHILS ABSOLUTE COUNT (BEAKER) (test 0.33 K/ L 0.04-0.54 aweh=799) BASOPHILS ABSOLUTE COUNT (BEAKER) (test tjuw=046) 0.02 K/ L 0.01-0.08 IMMATURE GRANULOCYTES-RELATIVE PERCENT (BEAKER) 1 % 0-1 (test elro=6519) PROTHROMBIN [id number] 07:51:00 Test Item Value Reference Range Comments PROTIME (BEAKER) (test hmwz=405) 23.8 seconds 11.7-14.7 INR (BEAKER) (test blbs=573) 2.1 <=5.9 RECOMMENDED COUMADIN/WARFARIN INR THERAPY RANGESSTANDARD DOSE: 2.0 - 3.0 Includes: PROPHYLAXIS forvenous thrombosis, systemic embolization; TREATMENT for venous thrombosis and/or pulmonary embolus.HIGH RISK: Target INR is 2.5-3.5 for patients with mechanical heart valves.BLOOD [id number] 05:02:00 Test Item Value Reference Range Comments CULTURE (BEAKER) (test mbtk=5432) No growth in 5 days BLOOD [id number] 05:02:00 Test Item Value Reference Range Comments CULTURE (BEAKER) (test ighb=6055) No growth in 5 days BODY FLUID CULTURE + GRAM [id number] 09:05:00 Test Item Value Reference Range Comments CULTURE (BEAKER) (test hceg=8816) No growth GRAM STAIN RESULT (BEAKER) (test No White blood cells seen cneu=6340) GRAM STAIN RESULT (BEAKER) (test No organisms seen lwtk=48677) RAPID DRUG SCREEN, [id number] 23:13:00 Test Item Value Reference Range Comments BARBITURATE URINE (BEAKER) (test hltv=873) Negative Negative BENZODIAZEPINE SCREEN URINE (BEAKER) (test Negative Negative fwnb=459) COCAINE (METAB.) SCREEN (BEAKER) (test ywmr=0422) Negative Negative METHADONE SCREEN (BEAKER) (test fdzu=7433) Negative Negative OPIATE SCREEN URINE (BEAKER) (test lyng=640) Negative Negative CANNABINOID SCREEN URINE (BEAKER) (test czmm=458) Negative Negative AMPH/METHAMPH SCREEN (BEAKER) (test flmf=6541) Negative Negative PHENCYCLIDINE SCREEN URINE (BEAKER) (test zdsg=453) Negative Negative OXYCODONE SCREEN URINE (BEAKER) (test huov=9177) Negative Negative DRUG CUTOFF CONC.Cocaine 300 ng/mL Cannabinoid 50 ng/mL Benzodiazepine 200 ng/mLBarbiturate 200 ng/ mLPhencyclidine 25 ng/mLOpiate 300 ng/mLMethadone 300 ng/mLAmphetamine/ 1000 ng/mL MethamphetamineOxycodone 300 ng/mLThis assay provides an unconfirmed qualitative test result for the clinical management of patients in emergency situations. Chain of custody not maintained. Some emvn-noq-gabxbgz medications, as well as adulterants, may cause inaccurate results. Clinical correlation should be applied. A more comprehensive drug screen or confirmation of a detected drug may be performed upon request.MR, ABDOMEN, [id number] 13:52:00FINAL REPORT MRI of the abdomen with [...] MDRort Verified Date/Time: 09/05/2017 13:52:35 Reading Location: [facility] C013Y CT BodyReading Room CBC W/PLT COUNT & AUTO [id number] 05:46:00 Test Item Value Reference Range Comments WHITE BLOOD CELL COUNT (BEAKER) (test zdgo=036) 4.7 K/ L 3.5-10.5 RED BLOOD CELL COUNT (BEAKER) (test qocz=220) 2.49 M/ L 4.63-6.08 HEMOGLOBIN (BEAKER) (test vabh=337) 7.9 GM/DL 13.7-17.5 HEMATOCRIT (BEAKER) (test vfvl=005) 22.6 % 40.1-51.0 MEAN CORPUSCULAR VOLUME (BEAKER) (test xtih=682) 90.8 fL 79.0-92.2 MEAN CORPUSCULAR HEMOGLOBIN (BEAKER) (test 31.7 pg 25.7-32.2 blow=358) MEAN CORPUSCULAR HEMOGLOBIN CONC (BEAKER) (test 35.0 GM/DL 32.3-36.5 bgsl=889) RED CELL DISTRIBUTION WIDTH (BEAKER) (test 18.8 % 11.6-14.4 svpv=793) PLATELET COUNT (BEAKER) (test lbww=898) 60 K/CU MM 150-450 MEAN PLATELET VOLUME (BEAKER) (test rlvj=956) 9.2 fL 9.4-12.4 NUCLEATED RED BLOOD CELLS (BEAKER) (test 0 /100 WBC 0-0 hzjq=639) NEUTROPHILS RELATIVE PERCENT (BEAKER) (test 65 % pauw=839) LYMPHOCYTES RELATIVE PERCENT (BEAKER) (test 13 % mkmt=643) MONOCYTES RELATIVE PERCENT (BEAKER) (test 15 % oolo=551) EOSINOPHILS RELATIVE PERCENT (BEAKER) (test 6 % jrbz=913) BASOPHILS RELATIVE PERCENT (BEAKER) (test 0 % kbmf=559) NEUTROPHILS ABSOLUTE COUNT (BEAKER) (test 3.05 K/ L 1.78-5.38 gfkp=164) LYMPHOCYTES ABSOLUTE COUNT (BEAKER) (test 0.62 K/ L 1.32-3.57 gupf=157) MONOCYTES ABSOLUTE COUNT (BEAKER) (test vkcf=561) 0.68 K/ L 0.30-0.82 EOSINOPHILS ABSOLUTE COUNT (BEAKER) (test 0.28 K/ L 0.04-0.54 yalp=698) BASOPHILS ABSOLUTE COUNT (BEAKER) (test swkf=941) 0.02 K/ L 0.01-0.08 IMMATURE GRANULOCYTES-RELATIVE PERCENT (BEAKER) 1 % 0-1 (test ypsj=5354) BASIC METABOLIC [id number] 05:44:00 Test Item Value Reference Range Comments SODIUM (BEAKER) (test 127 meq/L 136-145 fmiy=682) POTASSIUM (BEAKER) (test 4.5 meq/L 3.5-5.1 znrv=879) CHLORIDE (BEAKER) (test 101 meq/L 98-107 lyrm=544) CO2 (BEAKER) (test 19 meq/L 22-29 nszg=535) BLOOD UREA NITROGEN 17 mg/dL 7-21 (BEAKER) (test dayt=672) CREATININE (BEAKER) (test 0.91 mg/dL 0.57-1.25 ylae=163) GLUCOSE RANDOM (BEAKER) 107 mg/dL 70-105 (test hugl=651) CALCIUM (BEAKER) (test 9.4 mg/dL 8.4-10.2 qwai=563) EGFR (BEAKER) (test 87 mL/min/1.73 sq m ESTIMATED GFR IS NOT rxuw=2323) ACCURATE CREATININE CLEARANCE IN PREDICTING GLOMERULAR FILTRATION RATE. ESTIMATED GFR IS NOT APPLICABLE FOR DIALYSIS PATIENTS. Specimen moderately ictericHEPATIC FUNCTION [id number] 05:44:00 Test Item Value Reference Range Comments TOTAL PROTEIN (BEAKER) (test tcmp=423) 5.6 gm/dL 6.0-8.3 ALBUMIN (BEAKER) (test tijh=6623) 3.3 g/dL 3.5-5.0 BILIRUBIN TOTAL (BEAKER) (test uncs=766) 10.3 mg/dL 0.2-1.2 BILIRUBIN DIRECT (BEAKER) (test pofv=739) 6.8 mg/dL 0.1-0.5 ALKALINE PHOSPHATASE (BEAKER) (test zoot=631) 103 U/L 40-150 AST (SGOT) (BEAKER) (test qplq=005) 17 U/L 5-34 ALT (SGPT) (BEAKER) (test rfdn=689) 8 U/L 6-55 Specimen moderately ictericPT/[id number] 05:31:00 Test Item Value Reference Range Comments PROTIME (BEAKER) (test xtvr=965) 25.6 seconds 11.7-14.7 INR (BEAKER) (test ycbu=502) 2.3 <=5.9 PARTIAL THROMBOPLASTIN TIME (BEAKER) (test 51.6 seconds 22.5-36.0 ilwl=533) RECOMMENDED COUMADIN/WARFARIN INR THERAPY RANGESSTANDARD DOSE: 2.0 - 3.0 Includes: PROPHYLAXIS forvenous thrombosis, systemic embolization; TREATMENT for venous thrombosis and/or pulmonary embolus.HIGH RISK: Target INR is 2.5-3.5 for patients with mechanical heart valves.PROTHROMBIN TIME/[id number] 05:30: 00 Test Item Value Reference Range Comments PROTIME (BEAKER) (test xgeq=725) 25.6 seconds 11.7-14.7 INR (BEAKER) (test mntt=074) 2.3 <=5.9 RECOMMENDED COUMADIN/WARFARIN INR THERAPY RANGESSTANDARD DOSE: 2.0 - 3.0 Includes: PROPHYLAXIS forvenous thrombosis, systemic embolization; TREATMENT for venous thrombosis and/or pulmonary embolus.HIGH RISK: Target INR is 2.5-3.5 for patients with mechanical heart valves.BODY FLUID CELL COUNT WITH [id number] 19:30:00 Test Item Value Reference Range Comments APPEARANCE FLUID (BEAKER) (test dyey=855) Slightly Hazy Clear COLOR FLUID (BEAKER) (test wkwb=889) Yellow Colorless, Straw RBC FLUID (BEAKER) (test kxig=185) 100 /cu mm <=1 ADJUSTED WBC FLUID (BEAKER) (test qhlw=7685) 36 /cu mm <=5 LINING CELLS (BEAKER) (test hlau=4310) 4 /cu mm <=1 NEUTROPHILS FLUID (BEAKER) (test ymsf=8724) 0 % LYMPHS FLUID (BEAKER) (test mhsb=155) 20 % MONO/MACROPHAGE FLUID (BEAKER) (test 80 % eudx=330) EOSINOPHILS FLUID (BEAKER) (test mwpn=534) 0 % BASO FLUID (BEAKER) (test dbib=866) 0 % CONTAINER BODY FLUID (BEAKER) (test EDTA Tube dbxn=1753) U/S, [id number] 16:21:00Reason for exam:->ascitesShould this be performed at the bedside?->NoFINAL REPORT PROCEDURE: Ultrasound-guided paracentesis. INDICATION: 52-year-old man with ascites. DESCRIPTION: After obtaining informed written consent, ultrasound scan of the abdomen identified ascites in the right lower quadrant. The overlying skin was prepped and draped in the usual, sterile fashion and local 1% lidocaine anesthesia was administered. A 5 Portuguese catheter was advanced into the peritoneal cavity and 13,200 cc of cloudy yellow fluid was removed. The catheter was removed without immediate complication. Samples were sent for analysis. IMPRESSION:Uncomplicated ultrasound-guided paracentesis with 13,200 cc fluid removed. Signed: Candice Mckeon Verified Date/Time: 2016 16:21:22 Reading Location: [address] Ultrasound Reading Room BASI METABOLIC [id number] 11:07:00 Test Item Value Reference Range Comments SODIUM (BEAKER) (test 127 meq/L 136-145 gbyt=562) POTASSIUM (BEAKER) (test 4.1 meq/L 3.5-5.1 zehs=722) CHLORIDE (BEAKER) (test 101 meq/L 98-107 lbsv=861) CO2 (BEAKER) (test 23 meq/L 22-29 pwzi=437) BLOOD UREA NITROGEN 17 mg/dL 7-21 (BEAKER) (test oujj=495) CREATININE (BEAKER) (test 1.06 mg/dL 0.57-1.25 wemm=057) GLUCOSE RANDOM (BEAKER) 104 mg/dL 70-105 (test evpy=500) CALCIUM (BEAKER) (test 8.9 mg/dL 8.4-10.2 atvd=136) EGFR (BEAKER) (test 73 mL/min/1.73 sq m ESTIMATED GFR IS NOT xfde=7397) ACCURATE CREATININE CLEARANCE IN PREDICTING GLOMERULAR FILTRATION RATE. ESTIMATED GFR IS NOT APPLICABLE FOR DIALYSIS PATIENTS. Specimen markedly ictericHEPATIC FUNCTION [id number] 11:07:00 Test Item Value Reference Range Comments TOTAL PROTEIN (BEAKER) (test vacq=046) 5.4 gm/dL 6.0-8.3 ALBUMIN (BEAKER) (test xaoj=9333) 2.8 g/dL 3.5-5.0 BILIRUBIN TOTAL (BEAKER) (test vszo=495) 12.7 mg/dL 0.2-1.2 BILIRUBIN DIRECT (BEAKER) (test jzqo=957) 7.8 mg/dL 0.1-0.5 ALKALINE PHOSPHATASE (BEAKER) (test keyf=125) 90 U/L 40-150 AST (SGOT) (BEAKER) (test xojr=741) 22 U/L 5-34 ALT (SGPT) (BEAKER) (test zihe=995) 11 U/L 6-55 Specimen markedly ictericPT/[id number] 11:02:00 Test Item Value Reference Range Comments PROTIME (BEAKER) (test zpat=615) 23.4 seconds 11.7-14.7 INR (BEAKER) (test unqk=992) 2.1 <=5.9 PARTIAL THROMBOPLASTIN TIME (BEAKER) (test 48.7 seconds 22.5-36.0 ljvf=520) RECOMMENDED COUMADIN/WARFARIN INR THERAPY RANGESSTANDARD DOSE: 2.0 - 3.0 Includes: PROPHYLAXIS forvenous thrombosis, systemic embolization; TREATMENT for venous thrombosis and/or pulmonary embolus.HIGH RISK: Target INR is 2.5-3.5 for patients with mechanical heart valves.PROTHROMBIN TIME/[id number] 11:01: 00 Test Item Value Reference Range Comments PROTIME (BEAKER) (test kvie=061) 23.4 seconds 11.7-14.7 INR (BEAKER) (test xovw=263) 2.1 <=5.9 RECOMMENDED COUMADIN/WARFARIN INR THERAPY RANGESSTANDARD DOSE: 2.0 - 3.0 Includes: PROPHYLAXIS forvenous thrombosis, systemic embolization; TREATMENT for venous thrombosis and/or pulmonary embolus.HIGH RISK: Target INR is 2.5-3.5 for patients with mechanical heart valves.CBC W/PLT COUNT & AUTO [id number] 10:56:00 Test Item Value Reference Range Comments WHITE BLOOD CELL COUNT (BEAKER) (test ffsk=292) 4.4 K/ L 3.5-10.5 RED BLOOD CELL COUNT (BEAKER) (test kqdw=530) 2.48 M/ L 4.63-6.08 HEMOGLOBIN (BEAKER) (test qqwc=611) 7.8 GM/DL 13.7-17.5 HEMATOCRIT (BEAKER) (test gecu=781) 22.7 % 40.1-51.0 MEAN CORPUSCULAR VOLUME (BEAKER) (test qyby=486) 91.5 fL 79.0-92.2 MEAN CORPUSCULAR HEMOGLOBIN (BEAKER) (test 31.5 pg 25.7-32.2 mlju=897) MEAN CORPUSCULAR HEMOGLOBIN CONC (BEAKER) (test 34.4 GM/DL 32.3-36.5 gjuu=477) RED CELL DISTRIBUTION WIDTH (BEAKER) (test 18.6 % 11.6-14.4 bzlj=205) PLATELET COUNT (BEAKER) (test oezt=099) 60 K/CU MM 150-450 MEAN PLATELET VOLUME (BEAKER) (test fcvp=794) 8.8 fL 9.4-12.4 NUCLEATED RED BLOOD CELLS (BEAKER) (test 0 /100 WBC 0-0 xorg=612) NEUTROPHILS RELATIVE PERCENT (BEAKER) (test 61 % fbdb=107) LYMPHOCYTES RELATIVE PERCENT (BEAKER) (test 9 % jzio=162) MONOCYTES RELATIVE PERCENT (BEAKER) (test 21 % zbcz=779) EOSINOPHILS RELATIVE PERCENT (BEAKER) (test 8 % qdww=802) BASOPHILS RELATIVE PERCENT (BEAKER) (test 1 % hlyz=143) NEUTROPHILS ABSOLUTE COUNT (BEAKER) (test 2.68 K/ L 1.78-5.38 qsro=530) LYMPHOCYTES ABSOLUTE COUNT (BEAKER) (test 0.38 K/ L 1.32-3.57 jswd=372) MONOCYTES ABSOLUTE COUNT (BEAKER) (test ylcc=028) 0.94 K/ L 0.30-0.82 EOSINOPHILS ABSOLUTE COUNT (BEAKER) (test 0.33 K/ L 0.04-0.54 blbd=684) BASOPHILS ABSOLUTE COUNT (BEAKER) (test jher=045) 0.02 K/ L 0.01-0.08 IMMATURE GRANULOCYTES-RELATIVE PERCENT (BEAKER) 1 % 0-1 (test wqlo=2033) URINALYSIS W/ [id number] 06:18:00 Test Item Value Reference Range Comments COLOR (BEAKER) (test dfrg=377) Dark Yellow CLARITY (BEAKER) (test acnt=537) Clear SPECIFIC GRAVITY UA (BEAKER) (test yzua=929) 1.008 1.001-1.035 PH UA (BEAKER) (test wbgk=783) 6.0 5.0-8.0 PROTEIN UA (BEAKER) (test twxo=298) Negative Negative GLUCOSE UA (BEAKER) (test pqmz=553) Negative Negative KETONES UA (BEAKER) (test onoq=895) Negative Negative BILIRUBIN UA (BEAKER) (test guom=917) Positive Negative BLOOD UA (BEAKER) (test bjqk=222) Moderate Negative NITRITE UA (BEAKER) (test kmfo=531) Negative Negative LEUKOCYTE ESTERASE UA (BEAKER) (test jnyf=236) Negative Negative UROBILINOGEN UA (BEAKER) (test isbw=186) 0.2 mg/dL 0.2-1.0 RBC UA (BEAKER) (test ofyx=828) 80 /HPF WBC UA (BEAKER) (test niul=536) 10 /HPF HYALINE CASTS (BEAKER) (test vycg=631) 5 /LPF AMORPHOUS CRYSTALS (BEAKER) (test xeiy=3325) Rare SOURCE(BEAKER) (test abtt=6667) CBC W/PLT COUNT & AUTO [id number] 00:00:00 Test Item Value Reference Range Comments WHITE BLOOD CELL COUNT (BEAKER) (test ixfg=031) 3.7 K/ L 3.5-10.5 RED BLOOD CELL COUNT (BEAKER) (test ukcr=460) 2.20 M/ L 4.63-6.08 HEMOGLOBIN (BEAKER) (test losw=544) 7.0 GM/DL 13.7-17.5 HEMATOCRIT (BEAKER) (test hwvx=109) 20.2 % 40.1-51.0 MEAN CORPUSCULAR VOLUME (BEAKER) (test rfql=842) 91.8 fL 79.0-92.2 MEAN CORPUSCULAR HEMOGLOBIN (BEAKER) (test 31.8 pg 25.7-32.2 yxvs=176) MEAN CORPUSCULAR HEMOGLOBIN CONC (BEAKER) (test 34.7 GM/DL 32.3-36.5 gkvp=193) RED CELL DISTRIBUTION WIDTH (BEAKER) (test 19.3 % 11.6-14.4 fmji=623) PLATELET COUNT (BEAKER) (test edfx=041) 63 K/CU MM 150-450 MEAN PLATELET VOLUME (BEAKER) (test yrwq=327) 9.1 fL 9.4-12.4 NUCLEATED RED BLOOD CELLS (BEAKER) (test 0 /100 WBC 0-0 lsmy=416) NEUTROPHILS RELATIVE PERCENT (BEAKER) (test 62 % jpwg=026) LYMPHOCYTES RELATIVE PERCENT (BEAKER) (test 11 % uvqi=031) MONOCYTES RELATIVE PERCENT (BEAKER) (test 19 % npyn=412) EOSINOPHILS RELATIVE PERCENT (BEAKER) (test 7 % iocc=733) BASOPHILS RELATIVE PERCENT (BEAKER) (test 1 % ylgc=144) NEUTROPHILS ABSOLUTE COUNT (BEAKER) (test 2.29 K/ L 1.78-5.38 yele=681) LYMPHOCYTES ABSOLUTE COUNT (BEAKER) (test 0.39 K/ L 1.32-3.57 jhtr=524) MONOCYTES ABSOLUTE COUNT (BEAKER) (test xqci=384) 0.71 K/ L 0.30-0.82 EOSINOPHILS ABSOLUTE COUNT (BEAKER) (test 0.27 K/ L 0.04-0.54 ehmv=536) BASOPHILS ABSOLUTE COUNT (BEAKER) (test rykf=426) 0.02 K/ L 0.01-0.08 IMMATURE GRANULOCYTES-RELATIVE PERCENT (BEAKER) 1 % 0-1 (test bgad=0465) PROTHROMBIN [id number] 22:52:00 Test Item Value Reference Range Comments PROTIME (BEAKER) (test wouv=435) 25.6 seconds 11.7-14.7 INR (BEAKER) (test pygy=881) 2.3 <=5.9 RECOMMENDED COUMADIN/WARFARIN INR THERAPY RANGESSTANDARD DOSE: 2.0 - 3.0 Includes: PROPHYLAXIS forvenous thrombosis, systemic embolization; TREATMENT for venous thrombosis and/or pulmonary embolus.HIGH RISK: Target INR is 2.5-3.5 for patients with mechanical heart valves.[id number] 22:52:00 Test Item Value Reference Range Comments MAGNESIUM (BEAKER) (test mgcp=606) 1.3 mg/dL 1.6-2.6 BASIC METABOLIC [id number] 22:52:00 Test Item Value Reference Range Comments SODIUM (BEAKER) (test 124 meq/L 136-145 avpz=777) POTASSIUM (BEAKER) (test 4.1 meq/L 3.5-5.1 qlef=926) CHLORIDE (BEAKER) (test 99 meq/L 98-107 wxll=640) CO2 (BEAKER) (test 18 meq/L 22-29 xtft=214) BLOOD UREA NITROGEN 16 mg/dL 7-21 (BEAKER) (test pmyj=900) CREATININE (BEAKER) (test 0.97 mg/dL 0.57-1.25 hauc=057) GLUCOSE RANDOM (BEAKER) 99 mg/dL 70-105 (test wbxl=312) CALCIUM (BEAKER) (test 8.7 mg/dL 8.4-10.2 pffv=062) EGFR (BEAKER) (test 81 mL/min/1.73 sq m ESTIMATED GFR IS NOT psmb=4379) ACCURATE CREATININE CLEARANCE IN PREDICTING GLOMERULAR FILTRATION RATE. ESTIMATED GFR IS NOT APPLICABLE FOR DIALYSIS PATIENTS. Specimen markedly ictericHEPATIC FUNCTION [id number] 22:52:00 Test Item Value Reference Range Comments TOTAL PROTEIN (BEAKER) (test rbop=194) 5.3 gm/dL 6.0-8.3 ALBUMIN (BEAKER) (test bxrt=0694) 2.8 g/dL 3.5-5.0 BILIRUBIN TOTAL (BEAKER) (test akfp=592) 12.7 mg/dL 0.2-1.2 BILIRUBIN DIRECT (BEAKER) (test hnwl=914) 7.6 mg/dL 0.1-0.5 ALKALINE PHOSPHATASE (BEAKER) (test iyla=156) 93 U/L 40-150 AST (SGOT) (BEAKER) (test lcbn=429) 21 U/L 5-34 ALT (SGPT) (BEAKER) (test uoif=295) 9 U/L 6-55 Specimen markedly ictericALPHA FETOPROTEIN (AFP), TUMOR [id number] 16:39: 00 Test Item Value Reference Range Comments ALPHA-FETOPROTEIN (BEAKER) (test kjtp=4292) 2.5 ng/mL <10.0 BASIC METABOLIC [id number] 15:53:00 Test Item Value Reference Range Comments SODIUM (BEAKER) (test 126 meq/L 136-145 soja=808) POTASSIUM (BEAKER) (test 5.1 meq/L 3.5-5.1 sgkj=857) CHLORIDE (BEAKER) (test 101 meq/L 98-107 ylxq=366) CO2 (BEAKER) (test 19 meq/L 22-29 pjcb=167) BLOOD UREA NITROGEN 14 mg/dL 7-21 (BEAKER) (test lpav=570) CREATININE (BEAKER) (test 1.01 mg/dL 0.57-1.25 pzpy=999) GLUCOSE RANDOM (BEAKER) 104 mg/dL 70-105 (test hdhu=502) CALCIUM (BEAKER) (test 9.0 mg/dL 8.4-10.2 kshu=282) EGFR (BEAKER) (test 78 mL/min/1.73 sq m ESTIMATED GFR IS NOT lvdd=7895) ACCURATE CREATININE CLEARANCE IN PREDICTING GLOMERULAR FILTRATION RATE. ESTIMATED GFR IS NOT APPLICABLE FOR DIALYSIS PATIENTS. Specimen moderately ictericHEPATIC FUNCTION [id number] 15:53:00 Test Item Value Reference Range Comments TOTAL PROTEIN (BEAKER) (test hwni=211) 6.1 gm/dL 6.0-8.3 ALBUMIN (BEAKER) (test wqvs=4535) 2.6 g/dL 3.5-5.0 BILIRUBIN TOTAL (BEAKER) (test avxv=500) 10.4 mg/dL 0.2-1.2 BILIRUBIN DIRECT (BEAKER) (test jbyv=601) 7.5 mg/dL 0.1-0.5 ALKALINE PHOSPHATASE (BEAKER) (test fovm=120) 124 U/L 40-150 AST (SGOT) (BEAKER) (test edex=087) 29 U/L 5-34 ALT (SGPT) (BEAKER) (test rbim=917) 12 U/L 6-55 Specimen moderately ictericGAMMA GLUTAMYL TRANSFERASE (GGT)[id number] 15:53:00 Test Item Value Reference Range Comments GAMMA GLUTAMYL TRANSFERASE (BEAKER) (test jzhk=755) 17 U/L 9-64 Specimen moderately ictericPROTHROMBIN [id number] 15:40:00 Test Item Value Reference Range Comments PROTIME (BEAKER) (test eeev=088) 22.6 seconds 11.7-14.7 INR (BEAKER) (test rhks=398) 2.0 <=5.9 RECOMMENDED COUMADIN/WARFARIN INR THERAPY RANGESSTANDARD DOSE: 2.0 - 3.0 Includes: PROPHYLAXIS forvenous thrombosis, systemic embolization; TREATMENT for venous thrombosis and/or pulmonary embolus.HIGH RISK: Target INR is 2.5-3.5 for patients with mechanical heart valves.CBC W/PLT COUNT & AUTO [id number] 15:38:00 Test Item Value Reference Range Comments WHITE BLOOD CELL COUNT (BEAKER) (test reyj=074) 7.3 K/ L 3.5-10.5 RED BLOOD CELL COUNT (BEAKER) (test thxq=830) 2.78 M/ L 4.63-6.08 HEMOGLOBIN (BEAKER) (test xtul=112) 9.1 GM/DL 13.7-17.5 HEMATOCRIT (BEAKER) (test dkxx=738) 27.3 % 40.1-51.0 MEAN CORPUSCULAR VOLUME (BEAKER) (test psch=736) 98.2 fL 79.0-92.2 MEAN CORPUSCULAR HEMOGLOBIN (BEAKER) (test 32.7 pg 25.7-32.2 ijum=889) MEAN CORPUSCULAR HEMOGLOBIN CONC (BEAKER) (test 33.3 GM/DL 32.3-36.5 vkof=733) RED CELL DISTRIBUTION WIDTH (BEAKER) (test 16.4 % 11.6-14.4 jkrd=311) PLATELET COUNT (BEAKER) (test huwi=934) 71 K/CU MM 150-450 MEAN PLATELET VOLUME (BEAKER) (test dgug=035) 9.1 fL 9.4-12.4 NUCLEATED RED BLOOD CELLS (BEAKER) (test 0 /100 WBC 0-0 rkic=397) NEUTROPHILS RELATIVE PERCENT (BEAKER) (test 71 % narq=524) LYMPHOCYTES RELATIVE PERCENT (BEAKER) (test 8 % sdfg=103) MONOCYTES RELATIVE PERCENT (BEAKER) (test 15 % assa=861) EOSINOPHILS RELATIVE PERCENT (BEAKER) (test 5 % bfom=892) BASOPHILS RELATIVE PERCENT (BEAKER) (test 0 % dasi=040) NEUTROPHILS ABSOLUTE COUNT (BEAKER) (test 5.13 K/ L 1.78-5.38 onku=841) LYMPHOCYTES ABSOLUTE COUNT (BEAKER) (test 0.59 K/ L 1.32-3.57 xsjc=234) MONOCYTES ABSOLUTE COUNT (BEAKER) (test uxkh=737) 1.06 K/ L 0.30-0.82 EOSINOPHILS ABSOLUTE COUNT (BEAKER) (test 0.33 K/ L 0.04-0.54 dskm=368) BASOPHILS ABSOLUTE COUNT (BEAKER) (test luea=915) 0.03 K/ L 0.01-0.08 IMMATURE GRANULOCYTES-RELATIVE PERCENT (BEAKER) 2 % 0-1 (test wepv=0962) FUNGUS CULTURE + [id number] 07:22:00 Test Item Value Reference Range Comments CULTURE (BEAKER) (test No fungus isolated in 28 days cmqz=3448) FUNGUS SMEAR (BEAKER) (test No fungi seen jlto=9882) HISTOPLASMA ANTIGEN, [id number] 08:01:00 Test Item Value Reference Range Comments SCAN RESULT (test zdsc=[id number]) TISSUE [id number] 10:58:00 Test Item Value Reference Range Comments LAB AP CPT CODE (BEAKER) (test pmhm=2378) 11814 BLOOD [id number] 16:15:00 Test Item Value Reference Range Comments CULTURE (BEAKER) (test wkdh=5782) No growth in 5 days BLOOD [id number] 16:15:00 Test Item Value Reference Range Comments CULTURE (BEAKER) (test zlsp=2071) No growth in 5 days [id number] 06:54:00 Test Item Value Reference Range Comments PHOSPHORUS (BEAKER) (test wsax=928) 3.3 mg/dL 2.3-4.7 [id number] 06:54:00 Test Item Value Reference Range Comments MAGNESIUM (BEAKER) (test hone=855) 1.2 mg/dL 1.6-2.6 BASIC METABOLIC [id number] 06:54:00 Test Item Value Reference Range Comments SODIUM (BEAKER) (test 133 meq/L 136-145 ygjt=562) POTASSIUM (BEAKER) (test 3.6 meq/L 3.5-5.1 bcqh=887) CHLORIDE (BEAKER) (test 108 meq/L 98-107 vdea=500) CO2 (BEAKER) (test 17 meq/L 22-29 kzzq=033) BLOOD UREA NITROGEN 13 mg/dL 7-21 (BEAKER) (test ptjm=015) CREATININE (BEAKER) (test 1.16 mg/dL 0.57-1.25 dxus=899) GLUCOSE RANDOM (BEAKER) 82 mg/dL 70-105 (test furw=525) CALCIUM (BEAKER) (test 8.0 mg/dL 8.4-10.2 quup=180) EGFR (BEAKER) (test 66 mL/min/1.73 sq m ESTIMATED GFR IS NOT hctp=2743) ACCURATE CREATININE CLEARANCE IN PREDICTING GLOMERULAR FILTRATION RATE. ESTIMATED GFR IS NOT APPLICABLE FOR DIALYSIS PATIENTS. Specimen moderately ictericHEPATIC FUNCTION [id number] 06:54:00 Test Item Value Reference Range Comments TOTAL PROTEIN (BEAKER) (test qcvz=898) 5.7 gm/dL 6.0-8.3 ALBUMIN (BEAKER) (test ubpl=3493) 3.1 g/dL 3.5-5.0 BILIRUBIN TOTAL (BEAKER) (test ryxg=679) 5.2 mg/dL 0.2-1.2 BILIRUBIN DIRECT (BEAKER) (test qkbu=666) 2.6 mg/dL 0.1-0.5 ALKALINE PHOSPHATASE (BEAKER) (test xcfn=179) 55 U/L 40-150 AST (SGOT) (BEAKER) (test open=375) 32 U/L 5-34 ALT (SGPT) (BEAKER) (test kxrq=472) 9 U/L 6-55 Specimen moderately ictericCALCIUM, [id number] 06:30:00 Test Item Value Reference Range Comments CALCIUM IONIZED (BEAKER) (test rtaj=535) 1.00 mmol/L 1.12-1.27 PH, BLOOD (BEAKER) (test zivm=0222) 7.52 CBC W/PLT COUNT & AUTO [id number] 06:17:00 Test Item Value Reference Range Comments WHITE BLOOD CELL COUNT (BEAKER) (test xezs=500) 4.7 K/ L 4.0-10.0 RED BLOOD CELL COUNT (BEAKER) (test hcua=716) 2.05 M/ L 4.20-5.80 HEMOGLOBIN (BEAKER) (test jrve=352) 7.1 GM/DL 13.0-16.8 HEMATOCRIT (BEAKER) (test dhde=986) 21.1 % 40.0-50.0 MEAN CORPUSCULAR VOLUME (BEAKER) (test pdim=920) 103.0 fL 82.0-98.0 MEAN CORPUSCULAR HEMOGLOBIN (BEAKER) (test 34.8 pg 27.0-33.0 nmla=094) MEAN CORPUSCULAR HEMOGLOBIN CONC (BEAKER) (test 33.8 GM/DL 32.0-36.0 gxcm=793) RED CELL DISTRIBUTION WIDTH (BEAKER) (test 13.9 % 10.3-14.2 ofet=128) PLATELET COUNT (BEAKER) (test rgbx=987) 71 K/CU MM 150-430 MEAN PLATELET VOLUME (BEAKER) (test aduw=819) 6.6 fL 6.5-10.5 NUCLEATED RED BLOOD CELLS (BEAKER) (test 0 /100 WBC 0-0 qexo=056) NEUTROPHILS RELATIVE PERCENT (BEAKER) (test 68 % lbtz=842) LYMPHOCYTES RELATIVE PERCENT (BEAKER) (test 16 % jvsn=826) MONOCYTES RELATIVE PERCENT (BEAKER) (test 12 % tnpz=562) EOSINOPHILS RELATIVE PERCENT (BEAKER) (test 4 % wwvy=736) BASOPHILS RELATIVE PERCENT (BEAKER) (test 1 % hcai=021) NEUTROPHILS ABSOLUTE COUNT (BEAKER) (test 3.21 K/ L 1.80-8.00 ngfu=127) LYMPHOCYTES ABSOLUTE COUNT (BEAKER) (test 0.75 K/ L 1.48-4.50 xvyo=745) MONOCYTES ABSOLUTE COUNT (BEAKER) (test mgag=664) 0.57 K/ L 0.00-1.30 EOSINOPHILS ABSOLUTE COUNT (BEAKER) (test 0.19 K/ L 0.00-0.50 ejws=875) BASOPHILS ABSOLUTE COUNT (BEAKER) (test tgwc=428) 0.03 K/ L 0.00-0.20 0.00PROTHROMBIN [id number] 05:56:00 Test Item Value Reference Range Comments PROTIME (BEAKER) (test ueyp=125) 26.4 seconds 11.7-14.7 INR (BEAKER) (test xjfv=466) 2.4 <=5.9 RECOMMENDED COUMADIN/WARFARIN INR THERAPY RANGESSTANDARD DOSE: 2.0 - 3.0 Includes: PROPHYLAXIS forvenous thrombosis, systemic embolization; TREATMENT for venous thrombosis and/or pulmonary embolus.HIGH RISK: Target INR is 2.5-3.5 for patients with mechanical heart valves.BASIC METABOLIC [id number] 04:44: 00 Test Item Value Reference Range Comments SODIUM (BEAKER) (test 134 meq/L 136-145 juyg=949) POTASSIUM (BEAKER) (test 3.6 meq/L 3.5-5.1 chgb=346) CHLORIDE (BEAKER) (test 108 meq/L 98-107 bdgv=012) CO2 (BEAKER) (test 19 meq/L 22-29 vifx=008) BLOOD UREA NITROGEN 12 mg/dL 7-21 (BEAKER) (test rryd=687) CREATININE (BEAKER) (test 1.32 mg/dL 0.57-1.25 hzaa=070) GLUCOSE RANDOM (BEAKER) 82 mg/dL 70-105 (test hact=986) CALCIUM (BEAKER) (test 7.9 mg/dL 8.4-10.2 dckf=027) EGFR (BEAKER) (test 57 mL/min/1.73 sq m ESTIMATED GFR IS NOT dmwy=6394) ACCURATE CREATININE CLEARANCE IN PREDICTING GLOMERULAR FILTRATION RATE. ESTIMATED GFR IS NOT APPLICABLE FOR DIALYSIS PATIENTS. Specimen moderately ictericHEPATIC FUNCTION [id number] 04:42:00 Test Item Value Reference Range Comments TOTAL PROTEIN (BEAKER) (test eqku=126) 5.8 gm/dL 6.0-8.3 ALBUMIN (BEAKER) (test qocw=8764) 3.1 g/dL 3.5-5.0 BILIRUBIN TOTAL (BEAKER) (test mblk=673) 5.1 mg/dL 0.2-1.2 BILIRUBIN DIRECT (BEAKER) (test qxsf=774) 2.7 mg/dL 0.1-0.5 ALKALINE PHOSPHATASE (BEAKER) (test qlqx=561) 51 U/L 40-150 AST (SGOT) (BEAKER) (test vnzn=654) 27 U/L 5-34 ALT (SGPT) (BEAKER) (test hlkl=366) 7 U/L 6-55 Specimen moderately ictericCBC W/PLT COUNT & AUTO [id number] 04: 35:00 Test Item Value Reference Range Comments WHITE BLOOD CELL COUNT (BEAKER) (test nfti=566) 4.6 K/ L 4.0-10.0 RED BLOOD CELL COUNT (BEAKER) (test scyr=680) 2.06 M/ L 4.20-5.80 HEMOGLOBIN (BEAKER) (test sqaa=646) 7.2 GM/DL 13.0-16.8 HEMATOCRIT (BEAKER) (test vtct=564) 21.5 % 40.0-50.0 MEAN CORPUSCULAR VOLUME (BEAKER) (test qpur=964) 104.0 fL 82.0-98.0 MEAN CORPUSCULAR HEMOGLOBIN (BEAKER) (test 35.0 pg 27.0-33.0 nhqx=160) MEAN CORPUSCULAR HEMOGLOBIN CONC (BEAKER) (test 33.6 GM/DL 32.0-36.0 tzbv=489) RED CELL DISTRIBUTION WIDTH (BEAKER) (test 13.4 % 10.3-14.2 ikma=634) PLATELET COUNT (BEAKER) (test swpr=695) 76 K/CU MM 150-430 MEAN PLATELET VOLUME (BEAKER) (test lkdx=564) 6.5 fL 6.5-10.5 NUCLEATED RED BLOOD CELLS (BEAKER) (test 0 /100 WBC 0-0 rmub=269) NEUTROPHILS RELATIVE PERCENT (BEAKER) (test 64 % gbif=703) LYMPHOCYTES RELATIVE PERCENT (BEAKER) (test 16 % rsst=176) MONOCYTES RELATIVE PERCENT (BEAKER) (test 16 % gedf=823) EOSINOPHILS RELATIVE PERCENT (BEAKER) (test 4 % wbxt=562) BASOPHILS RELATIVE PERCENT (BEAKER) (test 1 % ayld=687) NEUTROPHILS ABSOLUTE COUNT (BEAKER) (test 2.89 K/ L 1.80-8.00 hzdr=785) LYMPHOCYTES ABSOLUTE COUNT (BEAKER) (test 0.72 K/ L 1.48-4.50 gocu=027) MONOCYTES ABSOLUTE COUNT (BEAKER) (test wqwp=730) 0.71 K/ L 0.00-1.30 EOSINOPHILS ABSOLUTE COUNT (BEAKER) (test 0.20 K/ L 0.00-0.50 gofg=454) BASOPHILS ABSOLUTE COUNT (BEAKER) (test wtek=778) 0.03 K/ L 0.00-0.20 0.00PROTHROMBIN [id number] 04:33:00 Test Item Value Reference Range Comments PROTIME (BEAKER) (test qeps=575) 30.2 seconds 11.7-14.7 INR (BEAKER) (test vnzp=776) 2.9 <=5.9 RECOMMENDED COUMADIN/WARFARIN INR THERAPY RANGESSTANDARD DOSE: 2.0 - 3.0 Includes: PROPHYLAXIS forvenous thrombosis, systemic embolization; TREATMENT for venous thrombosis and/or pulmonary embolus.HIGH RISK: Target INR is 2.5-3.5 for patients with mechanical heart valves.VANCOMYCIN LEVEL, [id number] 17: 04:00 Test Item Value Reference Range Comments VANCOMYCIN TROUGH (BEAKER) (test bltb=505) 12.2 ug/mL 10.0-20.0 URINE [id number] 14:25:00 Test Item Value Reference Range Comments CULTURE (BEAKER) (test adim=9782) No growth TSH/FREE T4 IF [id number] 14:22:00 Test Item Value Reference Range Comments THYROID STIMULATING HORMONE (BEAKER) (test 3.53 uIU/mL 0.35-4.94 jany=406) URINE [id number] 11:43:00 Test Item Value Reference Range Comments CULTURE (BEAKER) (test bcpx=7267) No growth CBC W/PLT COUNT & AUTO [id number] 07:55:00 Test Item Value Reference Range Comments WHITE BLOOD CELL COUNT (BEAKER) (test jhum=973) 4.5 K/ L 4.0-10.0 RED BLOOD CELL COUNT (BEAKER) (test wysy=157) 2.06 M/ L 4.20-5.80 HEMOGLOBIN (BEAKER) (test znhs=090) 7.1 GM/DL 13.0-16.8 HEMATOCRIT (BEAKER) (test txel=694) 21.5 % 40.0-50.0 MEAN CORPUSCULAR VOLUME (BEAKER) (test sgmy=492) 104.0 fL 82.0-98.0 MEAN CORPUSCULAR HEMOGLOBIN (BEAKER) (test 34.5 pg 27.0-33.0 nqwz=417) MEAN CORPUSCULAR HEMOGLOBIN CONC (BEAKER) (test 33.1 GM/DL 32.0-36.0 gtqb=510) RED CELL DISTRIBUTION WIDTH (BEAKER) (test 13.4 % 10.3-14.2 kmzt=043) PLATELET COUNT (BEAKER) (test pebc=373) 79 K/CU MM 150-430 MEAN PLATELET VOLUME (BEAKER) (test uacc=192) 6.8 fL 6.5-10.5 NUCLEATED RED BLOOD CELLS (BEAKER) (test 0 /100 WBC 0-0 hpcx=022) NEUTROPHILS RELATIVE PERCENT (BEAKER) (test 64 % ikkj=407) LYMPHOCYTES RELATIVE PERCENT (BEAKER) (test 16 % vdmg=327) MONOCYTES RELATIVE PERCENT (BEAKER) (test 15 % oxii=834) EOSINOPHILS RELATIVE PERCENT (BEAKER) (test 5 % sxen=876) BASOPHILS RELATIVE PERCENT (BEAKER) (test 0 % pyma=560) NEUTROPHILS ABSOLUTE COUNT (BEAKER) (test 2.88 K/ L 1.80-8.00 gmrb=147) LYMPHOCYTES ABSOLUTE COUNT (BEAKER) (test 0.73 K/ L 1.48-4.50 iice=040) MONOCYTES ABSOLUTE COUNT (BEAKER) (test eicw=449) 0.68 K/ L 0.00-1.30 EOSINOPHILS ABSOLUTE COUNT (BEAKER) (test 0.23 K/ L 0.00-0.50 vzqk=808) BASOPHILS ABSOLUTE COUNT (BEAKER) (test ectc=873) 0.02 K/ L 0.00-0.20 0.00BASI METABOLIC [id number] 05:58:00 Test Item Value Reference Range Comments SODIUM (BEAKER) (test 137 meq/L 136-145 idzk=332) POTASSIUM (BEAKER) (test 3.7 meq/L 3.5-5.1 ckbq=267) CHLORIDE (BEAKER) (test 110 meq/L 98-107 osdh=004) CO2 (BEAKER) (test 19 meq/L 22-29 anlr=958) BLOOD UREA NITROGEN 12 mg/dL 7-21 (BEAKER) (test cpnz=268) CREATININE (BEAKER) (test 1.29 mg/dL 0.57-1.25 tdby=887) GLUCOSE RANDOM (BEAKER) 80 mg/dL 70-105 (test lfaw=680) CALCIUM (BEAKER) (test 8.1 mg/dL 8.4-10.2 ywvo=868) EGFR (BEAKER) (test 59 mL/min/1.73 sq m ESTIMATED GFR IS NOT hjdh=7698) ACCURATE CREATININE CLEARANCE IN PREDICTING GLOMERULAR FILTRATION RATE. ESTIMATED GFR IS NOT APPLICABLE FOR DIALYSIS PATIENTS. Specimen moderately ictericHEPATIC FUNCTION [id number] 05:58:00 Test Item Value Reference Range Comments TOTAL PROTEIN (BEAKER) (test uhlv=695) 5.9 gm/dL 6.0-8.3 ALBUMIN (BEAKER) (test wjvu=6752) 3.4 g/dL 3.5-5.0 BILIRUBIN TOTAL (BEAKER) (test rxvv=990) 5.6 mg/dL 0.2-1.2 BILIRUBIN DIRECT (BEAKER) (test kcxf=856) 2.6 mg/dL 0.1-0.5 ALKALINE PHOSPHATASE (BEAKER) (test fdma=433) 50 U/L 40-150 AST (SGOT) (BEAKER) (test xmtx=222) 30 U/L 5-34 ALT (SGPT) (BEAKER) (test ddlr=079) 9 U/L 6-55 Specimen moderately ictericPROTHROMBIN [id number] 05:31:00 Test Item Value Reference Range Comments PROTIME (BEAKER) (test hdvc=479) 29.0 seconds 11.7-14.7 INR (BEAKER) (test crsb=737) 2.7 <=5.9 RECOMMENDED COUMADIN/WARFARIN INR THERAPY RANGESSTANDARD DOSE: 2.0 - 3.0 Includes: PROPHYLAXIS forvenous thrombosis, systemic embolization; TREATMENT for venous thrombosis and/or pulmonary embolus.HIGH RISK: Target INR is 2.5-3.5 for patients with mechanical heart valves.ANAEROBIC [id number] 05:15:00 Test Item Value Reference Range Comments CULTURE (BEAKER) (test wmes=2940) No anaerobes isolated BLOOD [id number] 00:00:00 Test Item Value Reference Range Comments CULTURE (BEAKER) (test vgzv=6208) No growth in 5 days BLOOD [id number] 00:00:00 Test Item Value Reference Range Comments CULTURE (BEAKER) (test vgxi=0687) No growth in 5 days URINALYSIS W/ REFLEX URINE [id number] 08:28:00 Test Item Value Reference Range Comments COLOR (BEAKER) (test pzbp=431) Yellow CLARITY (BEAKER) (test ktsy=703) Clear SPECIFIC GRAVITY UA (BEAKER) (test ldee=000) 1.006 1.001-1.035 PH UA (BEAKER) (test jqjw=629) 6.5 5.0-8.0 PROTEIN UA (BEAKER) (test xhut=988) Negative Negative GLUCOSE UA (BEAKER) (test tmvf=747) Negative Negative KETONES UA (BEAKER) (test hhbb=332) Negative Negative BILIRUBIN UA (BEAKER) (test ruco=480) Negative Negative BLOOD UA (BEAKER) (test woax=157) Negative Negative NITRITE UA (BEAKER) (test gvrm=924) Negative Negative LEUKOCYTE ESTERASE UA (BEAKER) (test fmcl=093) Small Negative UROBILINOGEN UA (BEAKER) (test xnkm=107) 0.2 mg/dL 0.2-1.0 RBC UA (BEAKER) (test gsro=671) 1 /HPF WBC UA (BEAKER) (test guml=750) 6 /HPF BACTERIA (BEAKER) (test jmpc=804) Rare SOURCE(BEAKER) (test qxay=5422) CBC W/PLT COUNT & AUTO [id number] 07:21:00 Test Item Value Reference Range Comments WHITE BLOOD CELL COUNT (BEAKER) (test uuog=441) 5.9 K/ L 4.0-10.0 RED BLOOD CELL COUNT (BEAKER) (test lkqa=155) 2.12 M/ L 4.20-5.80 HEMOGLOBIN (BEAKER) (test ylar=717) 7.3 GM/DL 13.0-16.8 HEMATOCRIT (BEAKER) (test vbav=181) 22.2 % 40.0-50.0 MEAN CORPUSCULAR VOLUME (BEAKER) (test bnzu=996) 105.0 fL 82.0-98.0 MEAN CORPUSCULAR HEMOGLOBIN (BEAKER) (test 34.2 pg 27.0-33.0 voch=657) MEAN CORPUSCULAR HEMOGLOBIN CONC (BEAKER) (test 32.7 GM/DL 32.0-36.0 fzzg=219) RED CELL DISTRIBUTION WIDTH (BEAKER) (test 13.1 % 10.3-14.2 jkwg=989) PLATELET COUNT (BEAKER) (test tqcv=079) 80 K/CU MM 150-430 MEAN PLATELET VOLUME (BEAKER) (test ezoe=456) 6.5 fL 6.5-10.5 NUCLEATED RED BLOOD CELLS (BEAKER) (test 0 /100 WBC 0-0 kruc=596) NEUTROPHILS RELATIVE PERCENT (BEAKER) (test 67 % zgdn=135) LYMPHOCYTES RELATIVE PERCENT (BEAKER) (test 14 % gjiz=179) MONOCYTES RELATIVE PERCENT (BEAKER) (test 14 % tjlq=592) EOSINOPHILS RELATIVE PERCENT (BEAKER) (test 4 % qunw=618) BASOPHILS RELATIVE PERCENT (BEAKER) (test 0 % ogmt=317) NEUTROPHILS ABSOLUTE COUNT (BEAKER) (test 3.97 K/ L 1.80-8.00 wasi=635) LYMPHOCYTES ABSOLUTE COUNT (BEAKER) (test 0.85 K/ L 1.48-4.50 rryf=366) MONOCYTES ABSOLUTE COUNT (BEAKER) (test cnbw=232) 0.81 K/ L 0.00-1.30 EOSINOPHILS ABSOLUTE COUNT (BEAKER) (test 0.25 K/ L 0.00-0.50 eprp=064) BASOPHILS ABSOLUTE COUNT (BEAKER) (test mtjh=980) 0.03 K/ L 0.00-0.20 [id number] 06:35:00 Test Item Value Reference Range Comments PHOSPHORUS (BEAKER) (test cmnn=910) 3.5 mg/dL 2.3-4.7 [id number] 06:35:00 Test Item Value Reference Range Comments MAGNESIUM (BEAKER) (test jhrs=193) 1.7 mg/dL 1.6-2.6 BASIC METABOLIC [id number] 06:35:00 Test Item Value Reference Range Comments SODIUM (BEAKER) (test 137 meq/L 136-145 vlfb=899) POTASSIUM (BEAKER) (test 4.0 meq/L 3.5-5.1 tuty=860) CHLORIDE (BEAKER) (test 109 meq/L 98-107 nlyh=071) CO2 (BEAKER) (test 20 meq/L 22-29 omyv=654) BLOOD UREA NITROGEN 13 mg/dL 7-21 (BEAKER) (test uxep=727) CREATININE (BEAKER) (test 1.56 mg/dL 0.57-1.25 etev=719) GLUCOSE RANDOM (BEAKER) 85 mg/dL 70-105 (test ehvj=994) CALCIUM (BEAKER) (test 8.4 mg/dL 8.4-10.2 tkzi=286) EGFR (BEAKER) (test 47 mL/min/1.73 sq m ESTIMATED GFR IS NOT vwmt=7247) ACCURATE CREATININE CLEARANCE IN PREDICTING GLOMERULAR FILTRATION RATE. ESTIMATED GFR IS NOT APPLICABLE FOR DIALYSIS PATIENTS. Specimen moderately ictericHEPATIC FUNCTION [id number] 06:35:00 Test Item Value Reference Range Comments TOTAL PROTEIN (BEAKER) (test ftto=672) 6.5 gm/dL 6.0-8.3 ALBUMIN (BEAKER) (test mxyy=1700) 3.8 g/dL 3.5-5.0 BILIRUBIN TOTAL (BEAKER) (test drwl=570) 6.1 mg/dL 0.2-1.2 BILIRUBIN DIRECT (BEAKER) (test tkej=196) 2.9 mg/dL 0.1-0.5 ALKALINE PHOSPHATASE (BEAKER) (test wrxy=123) 54 U/L 40-150 AST (SGOT) (BEAKER) (test rrew=660) 28 U/L 5-34 ALT (SGPT) (BEAKER) (test cjjd=674) 7 U/L 6-55 Specimen moderately ictericPROTHROMBIN TIME/[id number] 06:06:00 Test Item Value Reference Range Comments PROTIME (BEAKER) (test zcgz=004) 26.1 seconds 11.7-14.7 INR (BEAKER) (test uhhc=461) 2.4 <=5.9 RECOMMENDED COUMADIN/WARFARIN INR THERAPY RANGESSTANDARD DOSE: 2.0 - 3.0 Includes: PROPHYLAXIS forvenous thrombosis, systemic embolization; TREATMENT for venous thrombosis and/or pulmonary embolus.HIGH RISK: Target INR is 2.5-3.5 for patients with mechanical heart valves.CALCIUM, [id number] 06:06:00 Test Item Value Reference Range Comments CALCIUM IONIZED (BEAKER) (test dxtp=556) 1.06 mmol/L 1.12-1.27 PH, BLOOD (BEAKER) (test iddl=8290) 7.46 SURGICALLY OBTAINED CULTURE + GRAM [id number] 23:51:00 Test Item Value Reference Range Comments CULTURE (BEAKER) (test eupc=8119) No growth GRAM STAIN RESULT (BEAKER) (test 1+ WBCs qbfz=8875) GRAM STAIN RESULT (BEAKER) (test No organisms seen tfgk=98826) BODY FLUID CULTURE + GRAM [id number] 23:42:00 Test Item Value Reference Range Comments CULTURE (BEAKER) (test eaqe=0651) No growth GRAM STAIN RESULT (BEAKER) (test 1+ WBCs znbo=2228) GRAM STAIN RESULT (BEAKER) (test No organisms seen xjek=81017) BODY FLUID CELL COUNT WITH [id number] 19:59:00 Test Item Value Reference Range Comments APPEARANCE FLUID (BEAKER) (test rqrv=515) Hazy Clear COLOR FLUID (BEAKER) (test efds=748) Yellow Colorless, Straw RBC FLUID (BEAKER) (test qgak=971) 2435 /cu mm <=1 ADJUSTED WBC FLUID (BEAKER) (test relh=5025) 441 /cu mm <=5 LINING CELLS (BEAKER) (test jcjm=9057) 9 /cu mm <=1 NEUTROPHILS FLUID (BEAKER) (test twpi=2558) 16 % LYMPHS FLUID (BEAKER) (test nrrc=445) 10 % MONO/MACROPHAGE FLUID (BEAKER) (test jyic=337) 74 % EOSINOPHILS FLUID (BEAKER) (test xcwa=859) 0 % BASO FLUID (BEAKER) (test dpdb=081) 0 % CONTAINER BODY FLUID (BEAKER) (test uejo=8335) EDTA Tube [id number] 11:01:00 Test Item Value Reference Range Comments PROCALCITONIN (BEAKER) (test flee=1998) 0.25 ng/mL <0.05 SEPSIS RISK (ng/mL)Low: 0.05-0.50Intermediate: 0.51-2.00High: & gt;=2.01CBC W/PLT COUNT & AUTO [id number] 08:40:00 Test Item Value Reference Range Comments WHITE BLOOD CELL COUNT (BEAKER) (test jljl=169) 6.3 K/ L 4.0-10.0 RED BLOOD CELL COUNT (BEAKER) (test jikr=701) 2.07 M/ L 4.20-5.80 HEMOGLOBIN (BEAKER) (test eacj=517) 7.1 GM/DL 13.0-16.8 HEMATOCRIT (BEAKER) (test itvh=177) 21.9 % 40.0-50.0 MEAN CORPUSCULAR VOLUME (BEAKER) (test pnqa=622) 106.0 fL 82.0-98.0 MEAN CORPUSCULAR HEMOGLOBIN (BEAKER) (test 34.1 pg 27.0-33.0 rybs=825) MEAN CORPUSCULAR HEMOGLOBIN CONC (BEAKER) (test 32.2 GM/DL 32.0-36.0 qgax=080) RED CELL DISTRIBUTION WIDTH (BEAKER) (test 13.1 % 10.3-14.2 fsxy=305) PLATELET COUNT (BEAKER) (test eeda=478) 78 K/CU MM 150-430 MEAN PLATELET VOLUME (BEAKER) (test ycbv=776) 6.6 fL 6.5-10.5 NUCLEATED RED BLOOD CELLS (BEAKER) (test 0 /100 WBC 0-0 itxu=162) NEUTROPHILS RELATIVE PERCENT (BEAKER) (test 73 % ibma=778) LYMPHOCYTES RELATIVE PERCENT (BEAKER) (test 10 % mahd=627) MONOCYTES RELATIVE PERCENT (BEAKER) (test 13 % dqag=189) EOSINOPHILS RELATIVE PERCENT (BEAKER) (test 4 % lcwa=263) BASOPHILS RELATIVE PERCENT (BEAKER) (test 0 % jdma=827) NEUTROPHILS ABSOLUTE COUNT (BEAKER) (test 4.60 K/ L 1.80-8.00 aazl=376) LYMPHOCYTES ABSOLUTE COUNT (BEAKER) (test 0.64 K/ L 1.48-4.50 hkou=588) MONOCYTES ABSOLUTE COUNT (BEAKER) (test mzvn=725) 0.81 K/ L 0.00-1.30 EOSINOPHILS ABSOLUTE COUNT (BEAKER) (test 0.23 K/ L 0.00-0.50 fplx=775) BASOPHILS ABSOLUTE COUNT (BEAKER) (test zfjz=914) 0.01 K/ L 0.00-0.20 [id number] 06:50:00 Test Item Value Reference Range Comments PHOSPHORUS (BEAKER) (test iuro=832) 3.0 mg/dL 2.3-4.7 [id number] 06:50:00 Test Item Value Reference Range Comments MAGNESIUM (BEAKER) (test puzc=719) 1.9 mg/dL 1.6-2.6 BASIC METABOLIC [id number] 06:50:00 Test Item Value Reference Range Comments SODIUM (BEAKER) (test 135 meq/L 136-145 eqwr=933) POTASSIUM (BEAKER) (test 4.2 meq/L 3.5-5.1 deug=214) CHLORIDE (BEAKER) (test 106 meq/L 98-107 yrmf=066) CO2 (BEAKER) (test 21 meq/L 22-29 vlng=535) BLOOD UREA NITROGEN 19 mg/dL 7-21 (BEAKER) (test cadr=999) CREATININE (BEAKER) (test 1.62 mg/dL 0.57-1.25 phdx=534) GLUCOSE RANDOM (BEAKER) 98 mg/dL 70-105 (test kzxu=816) CALCIUM (BEAKER) (test 8.6 mg/dL 8.4-10.2 vasb=114) EGFR (BEAKER) (test 45 mL/min/1.73 sq m ESTIMATED GFR IS NOT dlwu=2029) ACCURATE CREATININE CLEARANCE IN PREDICTING GLOMERULAR FILTRATION RATE. ESTIMATED GFR IS NOT APPLICABLE FOR DIALYSIS PATIENTS. Specimen moderately ictericHEPATIC FUNCTION [id number] 06:50:00 Test Item Value Reference Range Comments TOTAL PROTEIN (BEAKER) (test hzzh=431) 6.3 gm/dL 6.0-8.3 ALBUMIN (BEAKER) (test jmnl=1711) 3.7 g/dL 3.5-5.0 BILIRUBIN TOTAL (BEAKER) (test hudm=463) 6.2 mg/dL 0.2-1.2 BILIRUBIN DIRECT (BEAKER) (test ueve=310) 2.8 mg/dL 0.1-0.5 ALKALINE PHOSPHATASE (BEAKER) (test rsbz=048) 54 U/L 40-150 AST (SGOT) (BEAKER) (test dnpd=656) 29 U/L 5-34 ALT (SGPT) (BEAKER) (test iozg=393) 8 U/L 6-55 Specimen moderately ictericCALCIUM, [id number] 06:48:00 Test Item Value Reference Range Comments CALCIUM IONIZED (BEAKER) (test xook=088) 1.12 mmol/L 1.12-1.27 PH, BLOOD (BEAKER) (test ldem=4541) 7.33 PROTHROMBIN [id number] 06:24:00 Test Item Value Reference Range Comments PROTIME (BEAKER) (test hjyg=058) 25.4 seconds 11.7-14.7 INR (BEAKER) (test fqmq=933) 2.3 <=5.9 RECOMMENDED COUMADIN/WARFARIN INR THERAPY RANGESSTANDARD DOSE: 2.0 - 3.0 Includes: PROPHYLAXIS forvenous thrombosis, systemic embolization; TREATMENT for venous thrombosis and/or pulmonary embolus.HIGH RISK: Target INR is 2.5-3.5 for patients with mechanical heart valves.[id number] 11:17:00 Test Item Value Reference Range Comments FIBRINOGEN LEVEL (BEAKER) (test crjl=278) 115 mg/dl 225-434 CALCIUM, [id number] 06:04:00 Test Item Value Reference Range Comments CALCIUM IONIZED (BEAKER) (test fbmn=329) 1.08 mmol/L 1.12-1.27 PH, BLOOD (BEAKER) (test xais=3462) 7.41 CBC W/PLT COUNT & AUTO [id number] 05:28:00 Test Item Value Reference Range Comments WHITE BLOOD CELL COUNT (BEAKER) (test mrnr=981) 5.6 K/ L 4.0-10.0 RED BLOOD CELL COUNT (BEAKER) (test vxxo=183) 2.00 M/ L 4.20-5.80 HEMOGLOBIN (BEAKER) (test dnrs=437) 7.2 GM/DL 13.0-16.8 HEMATOCRIT (BEAKER) (test fckh=840) 21.2 % 40.0-50.0 MEAN CORPUSCULAR VOLUME (BEAKER) (test igyd=729) 106.0 fL 82.0-98.0 MEAN CORPUSCULAR HEMOGLOBIN (BEAKER) (test 36.0 pg 27.0-33.0 xdtr=914) MEAN CORPUSCULAR HEMOGLOBIN CONC (BEAKER) (test 34.0 GM/DL 32.0-36.0 isri=675) RED CELL DISTRIBUTION WIDTH (BEAKER) (test 13.9 % 10.3-14.2 pdlk=221) PLATELET COUNT (BEAKER) (test afcr=697) 74 K/CU MM 150-430 MEAN PLATELET VOLUME (BEAKER) (test ehhe=885) 6.6 fL 6.5-10.5 NUCLEATED RED BLOOD CELLS (BEAKER) (test 0 /100 WBC 0-0 ubus=701) NEUTROPHILS RELATIVE PERCENT (BEAKER) (test 66 % bszc=046) LYMPHOCYTES RELATIVE PERCENT (BEAKER) (test 14 % qsmq=330) MONOCYTES RELATIVE PERCENT (BEAKER) (test 13 % eewx=190) EOSINOPHILS RELATIVE PERCENT (BEAKER) (test 7 % wtfd=951) BASOPHILS RELATIVE PERCENT (BEAKER) (test 0 % vvka=315) NEUTROPHILS ABSOLUTE COUNT (BEAKER) (test 3.67 K/ L 1.80-8.00 lcli=631) LYMPHOCYTES ABSOLUTE COUNT (BEAKER) (test 0.80 K/ L 1.48-4.50 soaz=171) MONOCYTES ABSOLUTE COUNT (BEAKER) (test mfgv=756) 0.69 K/ L 0.00-1.30 EOSINOPHILS ABSOLUTE COUNT (BEAKER) (test 0.38 K/ L 0.00-0.50 cwgr=459) BASOPHILS ABSOLUTE COUNT (BEAKER) (test lbfq=051) 0.02 K/ L 0.00-0.20 0.00PROTHROMBIN [id number] 05:11:00 Test Item Value Reference Range Comments PROTIME (BEAKER) (test dbyp=680) 25.9 seconds 11.7-14.7 INR (BEAKER) (test xfkf=197) 2.4 <=5.9 RECOMMENDED COUMADIN/WARFARIN INR THERAPY RANGESSTANDARD DOSE: 2.0 - 3.0 Includes: PROPHYLAXIS forvenous thrombosis, systemic embolization; TREATMENT for venous thrombosis and/or pulmonary embolus.HIGH RISK: Target INR is 2.5-3.5 for patients with mechanical heart valves.[id number] 05:03:00 Test Item Value Reference Range Comments PHOSPHORUS (BEAKER) (test pwaj=942) 3.5 mg/dL 2.3-4.7 [id number] 05:03:00 Test Item Value Reference Range Comments MAGNESIUM (BEAKER) (test usfi=952) 1.7 mg/dL 1.6-2.6 BASIC METABOLIC [id number] 05:03:00 Test Item Value Reference Range Comments SODIUM (BEAKER) (test 135 meq/L 136-145 wruy=540) POTASSIUM (BEAKER) (test 4.0 meq/L 3.5-5.1 fabk=318) CHLORIDE (BEAKER) (test 107 meq/L 98-107 rzwz=709) CO2 (BEAKER) (test 20 meq/L 22-29 ztmk=772) BLOOD UREA NITROGEN 22 mg/dL 7-21 (BEAKER) (test hskl=283) CREATININE (BEAKER) (test 1.77 mg/dL 0.57-1.25 qfad=612) GLUCOSE RANDOM (BEAKER) 83 mg/dL 70-105 (test zozk=476) CALCIUM (BEAKER) (test 8.3 mg/dL 8.4-10.2 qpmc=197) EGFR (BEAKER) (test 41 mL/min/1.73 sq m ESTIMATED GFR IS NOT ozpr=4104) ACCURATE CREATININE CLEARANCE IN PREDICTING GLOMERULAR FILTRATION RATE. ESTIMATED GFR IS NOT APPLICABLE FOR DIALYSIS PATIENTS. Specimen moderately ictericHEPATIC FUNCTION [id number] 05:03:00 Test Item Value Reference Range Comments TOTAL PROTEIN (BEAKER) (test tuis=898) 6.2 gm/dL 6.0-8.3 ALBUMIN (BEAKER) (test ouvl=4731) 3.7 g/dL 3.5-5.0 BILIRUBIN TOTAL (BEAKER) (test fgsa=267) 6.0 mg/dL 0.2-1.2 BILIRUBIN DIRECT (BEAKER) (test shpq=754) 2.6 mg/dL 0.1-0.5 ALKALINE PHOSPHATASE (BEAKER) (test pite=447) 48 U/L 40-150 AST (SGOT) (BEAKER) (test zbyy=830) 26 U/L 5-34 ALT (SGPT) (BEAKER) (test crxu=936) 8 U/L 6-55 Specimen moderately ictericURINE [id number] 14:42:00 Test Item Value Reference Range Comments CULTURE (BEAKER) (test oqlt=8344) No growth ANTI-NUCLEAR ANTIBODY (CHERYL)[id number] 13:32:00 Test Item Value Reference Range Comments ANTI-NUCLEAR ANTIBODY (CHERYL) (BEAKER) (test Negative Negative yrkt=582) PLATELET [id number] 06:30:00 Test Item Value Reference Range Comments PLATELET COUNT (BEAKER) (test wgch=732) 104 K/CU MM 150-430 [id number] 06:22:00 Test Item Value Reference Range Comments FIBRINOGEN LEVEL (BEAKER) (test vyqd=007) 106 mg/dl 225-434 [id number] 06:16:00 Test Item Value Reference Range Comments PARTIAL THROMBOPLASTIN TIME (BEAKER) (test 48.1 seconds 22.5-36.0 sbnc=705) PROTHROMBIN [id number] 06:15:00 Test Item Value Reference Range Comments PROTIME (BEAKER) (test lixm=601) 23.5 seconds 11.7-14.7 INR (BEAKER) (test bwfq=225) 2.1 <=5.9 RECOMMENDED COUMADIN/WARFARIN INR THERAPY RANGESSTANDARD DOSE: 2.0 - 3.0 Includes: PROPHYLAXIS forvenous thrombosis, systemic embolization; TREATMENT for venous thrombosis and/or pulmonary embolus.HIGH RISK: Target INR is 2.5-3.5 for patients with mechanical heart valves.[id number] 06:12:00 Test Item Value Reference Range Comments MAGNESIUM (BEAKER) (test 2.0 mg/dL 1.6-2.6 Specimen slightly hemolyzed rppc=381) [id number] 06:12:00 Test Item Value Reference Range Comments PHOSPHORUS (BEAKER) (test 5.0 mg/dL 2.3-4.7 Specimen slightly hemolyzed ebqb=246) BASIC METABOLIC [id number] 06:12:00 Test Item Value Reference Range Comments SODIUM (BEAKER) (test 135 meq/L 136-145 kwxm=903) POTASSIUM (BEAKER) (test 4.7 meq/L 3.5-5.1 Specimen slightly oaky=595) hemolyzed CHLORIDE (BEAKER) (test 107 meq/L 98-107 oasy=385) CO2 (BEAKER) (test 20 meq/L 22-29 baiy=848) BLOOD UREA NITROGEN 18 mg/dL 7-21 (BEAKER) (test uebg=715) CREATININE (BEAKER) (test 1.74 mg/dL 0.57-1.25 Specimen slightly gbsk=532) hemolyzed GLUCOSE RANDOM (BEAKER) 76 mg/dL 70-105 (test pcvk=620) CALCIUM (BEAKER) (test 8.1 mg/dL 8.4-10.2 tvhl=331) EGFR (BEAKER) (test 42 mL/min/1.73 sq m ESTIMATED GFR IS NOT yiyf=9591) ACCURATE CREATININE CLEARANCE IN PREDICTING GLOMERULAR FILTRATION RATE. ESTIMATED GFR IS NOT APPLICABLE FOR DIALYSIS PATIENTS. Specimen moderately ictericHEPATIC FUNCTION [id number] 06:12:00 Test Item Value Reference Range Comments TOTAL PROTEIN (BEAKER) (test 6.6 gm/dL 6.0-8.3 Specimen slightly hemolyzed dnkk=405) ALBUMIN (BEAKER) (test 3.7 g/dL 3.5-5.0 Specimen slightly hemolyzed elkx=0454) BILIRUBIN TOTAL (BEAKER) (test 5.7 mg/dL 0.2-1.2 Specimen slightly hemolyzed inub=600) BILIRUBIN DIRECT (BEAKER) (test 2.7 mg/dL 0.1-0.5 Specimen slightly hemolyzed hlvu=172) ALKALINE PHOSPHATASE (BEAKER) 56 U/L 40-150 (test arfn=608) AST (SGOT) (BEAKER) (test 29 U/L 5-34 Specimen slightly hemolyzed maxz=242) ALT (SGPT) (BEAKER) (test 7 U/L 6-55 Specimen slightly hemolyzed vjuv=677) Specimen moderately ictericLACTIC ACID, VENOUS, WHOLE [id number] 06:04:00 Test Item Value Reference Range Comments LACTATE BLOOD VENOUS (2) (BEAKER) (test 1.0 mmol/L 0.5-2.2 hvnj=7198) Effective 02/28/2016: Units/Reference Range ChangeNew: 0.5-2.2 mmol/L Previous: 5 -20 mg/dLSpecimen moderately ictericCALCIUM, [id number] 05:56:00 Test Item Value Reference Range Comments CALCIUM IONIZED (BEAKER) (test ltlm=667) 1.00 mmol/L 1.12-1.27 PH, BLOOD (BEAKER) (test dqnc=8170) 7.34 [id number] 21:34:00 Test Item Value Reference Range Comments FIBRINOGEN LEVEL (BEAKER) (test heoq=569) 105 mg/dl 225-434 PLATELET [id number] 20:52:00 Test Item Value Reference Range Comments PLATELET COUNT (BEAKER) (test yxlc=072) 77 K/CU MM 150-430 PT/[id number] 20:51:00 Test Item Value Reference Range Comments PROTIME (BEAKER) (test nxjg=890) 21.1 seconds 11.7-14.7 INR (BEAKER) (test egef=434) 1.8 <=5.9 PARTIAL THROMBOPLASTIN TIME (BEAKER) (test 47.3 seconds 22.5-36.0 wvgm=471) RECOMMENDED COUMADIN/WARFARIN INR THERAPY RANGESSTANDARD DOSE: 2.0 - 3.0 Includes: PROPHYLAXIS forvenous thrombosis, systemic embolization; TREATMENT for venous thrombosis and/or pulmonary embolus.HIGH RISK: Target INR is 2.5-3.5 for patients with mechanical heart valves.[id number] 20:51:00 Test Item Value Reference Range Comments PARTIAL THROMBOPLASTIN TIME (BEAKER) (test 47.3 seconds 22.5-36.0 irih=845) PROTHROMBIN TIME/[id number] 20:50:00 Test Item Value Reference Range Comments PROTIME (BEAKER) (test zhhq=389) 21.1 seconds 11.7-14.7 INR (BEAKER) (test csnq=634) 1.8 <=5.9 RECOMMENDED COUMADIN/WARFARIN INR THERAPY RANGESSTANDARD DOSE: 2.0 - 3.0 Includes: PROPHYLAXIS forvenous thrombosis, systemic embolization; TREATMENT for venous thrombosis and/or pulmonary embolus.HIGH RISK: Target INR is 2.5-3.5 for patients with mechanical heart valves.[id number] 19:30:00 Test Item Value Reference Range Comments PARTIAL THROMBOPLASTIN TIME (BEAKER) (test 45.1 seconds 22.5-36.0 nwta=375) PROTHROMBIN TIME/[id number] 19:29:00 Test Item Value Reference Range Comments PROTIME (BEAKER) (test gpav=594) 28.2 seconds 11.7-14.7 INR (BEAKER) (test rlup=550) 2.6 <=5.9 RECOMMENDED COUMADIN/WARFARIN INR THERAPY RANGESSTANDARD DOSE: 2.0 - 3.0 Includes: PROPHYLAXIS forvenous thrombosis, systemic embolization; TREATMENT for venous thrombosis and/or pulmonary embolus.HIGH RISK: Target INR is 2.5-3.5 for patients with mechanical heart valves.BODY FLUID CELL COUNT WITH [id number] 18:53:00 Test Item Value Reference Range Comments APPEARANCE FLUID (BEAKER) (test lwsj=860) Hazy Clear COLOR FLUID (BEAKER) (test ccix=767) Yellow Colorless, Straw RBC FLUID (BEAKER) (test uqgs=477) 900 /cu mm <=1 ADJUSTED WBC FLUID (BEAKER) (test dzqk=0125) 306 /cu mm <=5 LINING CELLS (BEAKER) (test nzub=6815) 64 /cu mm <=1 NEUTROPHILS FLUID (BEAKER) (test uojt=0357) 4 % LYMPHS FLUID (BEAKER) (test lqsw=933) 18 % MONO/MACROPHAGE FLUID (BEAKER) (test udcj=832) 78 % EOSINOPHILS FLUID (BEAKER) (test opic=782) 0 % BASO FLUID (BEAKER) (test hdxu=752) 0 % CONTAINER BODY FLUID (BEAKER) (test ypst=1026) EDTA Tube [id number] 16:56:00 Test Item Value Reference Range Comments AMYLASE (BEAKER) (test vhxu=423) 37 U/L 25-125 Specimen moderately ictericCOMPREHENSIVE METABOLIC [id number] 16:56:00 Test Item Value Reference Range Comments TOTAL PROTEIN (BEAKER) 6.1 gm/dL 6.0-8.3 (test yrty=457) ALBUMIN (BEAKER) (test 3.2 g/dL 3.5-5.0 kcsf=1099) ALKALINE PHOSPHATASE 67 U/L 40-150 (BEAKER) (test wtha=410) BILIRUBIN TOTAL (BEAKER) 5.7 mg/dL 0.2-1.2 (test irgb=117) SODIUM (BEAKER) (test 134 meq/L 136-145 mvws=153) POTASSIUM (BEAKER) (test 3.8 meq/L 3.5-5.1 bqre=072) CHLORIDE (BEAKER) (test 106 meq/L 98-107 haap=059) CO2 (BEAKER) (test 19 meq/L 22-29 xrjy=537) BLOOD UREA NITROGEN 18 mg/dL 7-21 (BEAKER) (test argm=782) CREATININE (BEAKER) (test 1.52 mg/dL 0.57-1.25 tqyc=844) GLUCOSE RANDOM (BEAKER) 112 mg/dL 70-105 (test smyh=970) CALCIUM (BEAKER) (test 8.3 mg/dL 8.4-10.2 gnib=757) AST (SGOT) (BEAKER) (test 28 U/L 5-34 wnjh=123) ALT (SGPT) (BEAKER) (test 10 U/L 6-55 vaul=239) EGFR (BEAKER) (test 49 mL/min/1.73 sq m ESTIMATED GFR IS NOT lxxr=2586) ACCURATE CREATININE CLEARANCE IN PREDICTING GLOMERULAR FILTRATION RATE. ESTIMATED GFR IS NOT APPLICABLE FOR DIALYSIS PATIENTS. Specimen moderately [id number] 16:56:00 Test Item Value Reference Range Comments LIPASE (BEAKER) (test gnph=277) 52 U/L 8-78 Specimen moderately ictericCBC W/PLT COUNT & AUTO [id number] 16: 27:00 Test Item Value Reference Range Comments WHITE BLOOD CELL COUNT (BEAKER) (test eggo=758) 3.7 K/ L 4.0-10.0 RED BLOOD CELL COUNT (BEAKER) (test qusz=962) 2.16 M/ L 4.20-5.80 HEMOGLOBIN (BEAKER) (test bqaj=903) 7.8 GM/DL 13.0-16.8 HEMATOCRIT (BEAKER) (test trqt=267) 23.1 % 40.0-50.0 MEAN CORPUSCULAR VOLUME (BEAKER) (test wvep=514) 107.0 fL 82.0-98.0 MEAN CORPUSCULAR HEMOGLOBIN (BEAKER) (test 36.0 pg 27.0-33.0 chxv=370) MEAN CORPUSCULAR HEMOGLOBIN CONC (BEAKER) (test 33.6 GM/DL 32.0-36.0 rxsm=952) RED CELL DISTRIBUTION WIDTH (BEAKER) (test 13.9 % 10.3-14.2 wxrw=356) PLATELET COUNT (BEAKER) (test dfkh=991) 78 K/CU MM 150-430 MEAN PLATELET VOLUME (BEAKER) (test pwao=310) 6.2 fL 6.5-10.5 NUCLEATED RED BLOOD CELLS (BEAKER) (test 0 /100 WBC 0-0 dwrn=626) NEUTROPHILS RELATIVE PERCENT (BEAKER) (test 50 % zbmx=223) LYMPHOCYTES RELATIVE PERCENT (BEAKER) (test 25 % wste=727) MONOCYTES RELATIVE PERCENT (BEAKER) (test 19 % qrmb=538) EOSINOPHILS RELATIVE PERCENT (BEAKER) (test 6 % gkcm=173) BASOPHILS RELATIVE PERCENT (BEAKER) (test 1 % livx=488) NEUTROPHILS ABSOLUTE COUNT (BEAKER) (test 1.82 K/ L 1.80-8.00 vpks=578) LYMPHOCYTES ABSOLUTE COUNT (BEAKER) (test 0.91 K/ L 1.48-4.50 mnyf=226) MONOCYTES ABSOLUTE COUNT (BEAKER) (test egth=714) 0.69 K/ L 0.00-1.30 EOSINOPHILS ABSOLUTE COUNT (BEAKER) (test 0.21 K/ L 0.00-0.50 ppvh=662) BASOPHILS ABSOLUTE COUNT (BEAKER) (test iggd=132) 0.02 K/ L 0.00-0.20 0.00HEPATIC FUNCTION [id number] 08:34:00 Test Item Value Reference Range Comments TOTAL PROTEIN (BEAKER) (test ftuc=634) 5.9 gm/dL 6.0-8.3 ALBUMIN (BEAKER) (test cowz=6586) 3.2 g/dL 3.5-5.0 BILIRUBIN TOTAL (BEAKER) (test qpyy=254) 5.4 mg/dL 0.2-1.2 BILIRUBIN DIRECT (BEAKER) (test tsxy=768) 2.5 mg/dL 0.1-0.5 ALKALINE PHOSPHATASE (BEAKER) (test fhvf=267) 60 U/L 40-150 AST (SGOT) (BEAKER) (test abfv=359) 28 U/L 5-34 ALT (SGPT) (BEAKER) (test gttd=323) 10 U/L 6-55 Specimen moderately [id number] 08:16:00 Test Item Value Reference Range Comments PHOSPHORUS (BEAKER) (test dpfr=518) 3.0 mg/dL 2.3-4.7 [id number] 08:16:00 Test Item Value Reference Range Comments MAGNESIUM (BEAKER) (test zpiq=343) 1.6 mg/dL 1.6-2.6 BASIC METABOLIC [id number] 08:16:00 Test Item Value Reference Range Comments SODIUM (BEAKER) (test 133 meq/L 136-145 rret=806) POTASSIUM (BEAKER) (test 3.6 meq/L 3.5-5.1 ywrg=185) CHLORIDE (BEAKER) (test 105 meq/L 98-107 ylnz=444) CO2 (BEAKER) (test 20 meq/L 22-29 szpo=133) BLOOD UREA NITROGEN 18 mg/dL 7-21 (BEAKER) (test emkt=777) CREATININE (BEAKER) (test 1.54 mg/dL 0.57-1.25 rwsd=146) GLUCOSE RANDOM (BEAKER) 70 mg/dL 70-105 (test rhxr=147) CALCIUM (BEAKER) (test 8.2 mg/dL 8.4-10.2 zstu=580) EGFR (BEAKER) (test 48 mL/min/1.73 sq m ESTIMATED GFR IS NOT wqet=6809) ACCURATE CREATININE CLEARANCE IN PREDICTING GLOMERULAR FILTRATION RATE. ESTIMATED GFR IS NOT APPLICABLE FOR DIALYSIS PATIENTS. Specimen moderately ictericCBC W/PLT COUNT & AUTO [id number] 08: 06:00 Test Item Value Reference Range Comments WHITE BLOOD CELL COUNT (BEAKER) (test xnqo=654) 3.4 K/ L 4.0-10.0 RED BLOOD CELL COUNT (BEAKER) (test eizp=207) 2.03 M/ L 4.20-5.80 HEMOGLOBIN (BEAKER) (test forq=617) 7.3 GM/DL 13.0-16.8 HEMATOCRIT (BEAKER) (test upld=090) 21.6 % 40.0-50.0 MEAN CORPUSCULAR VOLUME (BEAKER) (test jerr=248) 106.0 fL 82.0-98.0 MEAN CORPUSCULAR HEMOGLOBIN (BEAKER) (test 35.8 pg 27.0-33.0 sion=559) MEAN CORPUSCULAR HEMOGLOBIN CONC (BEAKER) (test 33.7 GM/DL 32.0-36.0 fsqx=322) RED CELL DISTRIBUTION WIDTH (BEAKER) (test 13.5 % 10.3-14.2 ffnh=561) PLATELET COUNT (BEAKER) (test ecxq=756) 82 K/CU MM 150-430 MEAN PLATELET VOLUME (BEAKER) (test phmn=851) 6.7 fL 6.5-10.5 NUCLEATED RED BLOOD CELLS (BEAKER) (test 0 /100 WBC 0-0 lccj=164) NEUTROPHILS RELATIVE PERCENT (BEAKER) (test 50 % yrph=759) LYMPHOCYTES RELATIVE PERCENT (BEAKER) (test 25 % xbmo=487) MONOCYTES RELATIVE PERCENT (BEAKER) (test 19 % pzhs=151) EOSINOPHILS RELATIVE PERCENT (BEAKER) (test 5 % qjis=315) BASOPHILS RELATIVE PERCENT (BEAKER) (test 1 % cgyp=361) NEUTROPHILS ABSOLUTE COUNT (BEAKER) (test 1.69 K/ L 1.80-8.00 bkhc=946) LYMPHOCYTES ABSOLUTE COUNT (BEAKER) (test 0.83 K/ L 1.48-4.50 lmqw=791) MONOCYTES ABSOLUTE COUNT (BEAKER) (test krwb=630) 0.65 K/ L 0.00-1.30 EOSINOPHILS ABSOLUTE COUNT (BEAKER) (test 0.17 K/ L 0.00-0.50 wmpf=504) BASOPHILS ABSOLUTE COUNT (BEAKER) (test oqzs=289) 0.04 K/ L 0.00-0.20 0.00PROTHROMBIN [id number] 08:01:00 Test Item Value Reference Range Comments PROTIME (BEAKER) (test fmqj=023) 27.6 seconds 11.7-14.7 INR (BEAKER) (test gimf=575) 2.6 <=5.9 RECOMMENDED COUMADIN/WARFARIN INR THERAPY RANGESSTANDARD DOSE: 2.0 - 3.0 Includes: PROPHYLAXIS forvenous thrombosis, systemic embolization; TREATMENT for venous thrombosis and/or pulmonary embolus.HIGH RISK: Target INR is 2.5-3.5 for patients with mechanical heart valves.CALCIUM, [id number] 07:58:00 Test Item Value Reference Range Comments CALCIUM IONIZED (BEAKER) (test iywl=073) 1.00 mmol/L 1.12-1.27 PH, BLOOD (BEAKER) (test bxmv=4915) 7.53 URINALYSIS W/ [id number] 18:42:00 Test Item Value Reference Range Comments COLOR (BEAKER) (test xrcv=056) Yellow CLARITY (BEAKER) (test eedg=616) Clear SPECIFIC GRAVITY UA (BEAKER) (test 1.009 1.001-1.035 horo=865) PH UA (BEAKER) (test bfvz=786) 7.5 5.0-8.0 PROTEIN UA (BEAKER) (test ayom=680) Negative Negative GLUCOSE UA (BEAKER) (test dgrl=030) Negative Negative KETONES UA (BEAKER) (test xbjj=863) Negative Negative BILIRUBIN UA (BEAKER) (test ufdv=594) Negative Negative BLOOD UA (BEAKER) (test nqrx=371) Negative Negative NITRITE UA (BEAKER) (test ldyq=235) Negative Negative LEUKOCYTE ESTERASE UA (BEAKER) (test Negative Negative xxro=629) UROBILINOGEN UA (BEAKER) (test rxlx=582) 3.0 mg/dL 0.2-1.0 RBC UA (BEAKER) (test epja=043) 6 /HPF WBC UA (BEAKER) (test xgbr=655) 1 /HPF SOURCE(BEAKER) (test drps=1066) Urine, Clean Catch PROTHROMBIN [id number] 15:13:00 Test Item Value Reference Range Comments PROTIME (BEAKER) (test husr=943) 31.4 seconds 11.7-14.7 INR (BEAKER) (test xbiv=574) 3.0 <=5.9 RECOMMENDED COUMADIN/WARFARIN INR THERAPY RANGESSTANDARD DOSE: 2.0 - 3.0 Includes: PROPHYLAXIS forvenous thrombosis, systemic embolization; TREATMENT for venous thrombosis and/or pulmonary embolus.HIGH RISK: Target INR is 2.5-3.5 for patients with mechanical heart valves.Draw after vitamin K administrationCBC W/PLT COUNT & AUTO [id number] 07:02:00 Test Item Value Reference Range Comments WHITE BLOOD CELL COUNT (BEAKER) (test tibe=023) 3.0 K/ L 4.0-10.0 RED BLOOD CELL COUNT (BEAKER) (test jxka=852) 2.21 M/ L 4.20-5.80 HEMOGLOBIN (BEAKER) (test zxpp=993) 7.5 GM/DL 13.0-16.8 HEMATOCRIT (BEAKER) (test anxc=954) 23.5 % 40.0-50.0 MEAN CORPUSCULAR VOLUME (BEAKER) (test emcj=678) 106.0 fL 82.0-98.0 MEAN CORPUSCULAR HEMOGLOBIN (BEAKER) (test 34.0 pg 27.0-33.0 uqdn=859) MEAN CORPUSCULAR HEMOGLOBIN CONC (BEAKER) (test 32.0 GM/DL 32.0-36.0 mkfe=325) RED CELL DISTRIBUTION WIDTH (BEAKER) (test 13.0 % 10.3-14.2 xyod=636) PLATELET COUNT (BEAKER) (test pzhw=081) 81 K/CU MM 150-430 MEAN PLATELET VOLUME (BEAKER) (test rnnr=982) 6.3 fL 6.5-10.5 NUCLEATED RED BLOOD CELLS (BEAKER) (test 0 /100 WBC 0-0 ajrs=983) NEUTROPHILS RELATIVE PERCENT (BEAKER) (test 52 % srfd=039) LYMPHOCYTES RELATIVE PERCENT (BEAKER) (test 24 % jcvh=024) MONOCYTES RELATIVE PERCENT (BEAKER) (test 20 % zhax=169) EOSINOPHILS RELATIVE PERCENT (BEAKER) (test 3 % uugj=596) BASOPHILS RELATIVE PERCENT (BEAKER) (test 1 % wafq=212) NEUTROPHILS ABSOLUTE COUNT (BEAKER) (test 1.53 K/ L 1.80-8.00 gyhg=854) LYMPHOCYTES ABSOLUTE COUNT (BEAKER) (test 0.71 K/ L 1.48-4.50 axah=825) MONOCYTES ABSOLUTE COUNT (BEAKER) (test vcdv=846) 0.60 K/ L 0.00-1.30 EOSINOPHILS ABSOLUTE COUNT (BEAKER) (test 0.10 K/ L 0.00-0.50 wwlj=841) BASOPHILS ABSOLUTE COUNT (BEAKER) (test viiz=186) 0.03 K/ L 0.00-0.20 0.00BASIC METABOLIC [id number] 06:29:00 Test Item Value Reference Range Comments SODIUM (BEAKER) (test 135 meq/L 136-145 qdtz=626) POTASSIUM (BEAKER) (test 4.0 meq/L 3.5-5.1 cuxe=748) CHLORIDE (BEAKER) (test 106 meq/L 98-107 upwi=800) CO2 (BEAKER) (test 22 meq/L 22-29 vbwo=730) BLOOD UREA NITROGEN 17 mg/dL 7-21 (BEAKER) (test qapw=441) CREATININE (BEAKER) (test 1.46 mg/dL 0.57-1.25 msid=213) GLUCOSE RANDOM (BEAKER) 75 mg/dL 70-105 (test fvos=014) CALCIUM (BEAKER) (test 8.0 mg/dL 8.4-10.2 uhqu=492) EGFR (BEAKER) (test 51 mL/min/1.73 sq m ESTIMATED GFR IS NOT kxaa=3077) ACCURATE CREATININE CLEARANCE IN PREDICTING GLOMERULAR FILTRATION RATE. ESTIMATED GFR IS NOT APPLICABLE FOR DIALYSIS PATIENTS. Specimen moderately ictericHEPATIC FUNCTION [id number] 06:29:00 Test Item Value Reference Range Comments TOTAL PROTEIN (BEAKER) (test ardi=114) 5.9 gm/dL 6.0-8.3 ALBUMIN (BEAKER) (test pwgl=7164) 3.0 g/dL 3.5-5.0 BILIRUBIN TOTAL (BEAKER) (test gqfs=828) 5.4 mg/dL 0.2-1.2 BILIRUBIN DIRECT (BEAKER) (test dguz=959) 2.7 mg/dL 0.1-0.5 ALKALINE PHOSPHATASE (BEAKER) (test byok=645) 65 U/L 40-150 AST (SGOT) (BEAKER) (test ustp=622) 27 U/L 5-34 ALT (SGPT) (BEAKER) (test bznh=218) 7 U/L 6-55 Specimen moderately ictericPROTHROMBIN [id number] 06:23:00 Test Item Value Reference Range Comments PROTIME (BEAKER) (test eqmm=839) 31.2 seconds 11.7-14.7 INR (BEAKER) (test hzac=468) 3.0 <=5.9 RECOMMENDED COUMADIN/WARFARIN INR THERAPY RANGESSTANDARD DOSE: 2.0 - 3.0 Includes: PROPHYLAXIS forvenous thrombosis, systemic embolization; TREATMENT for venous thrombosis and/or pulmonary embolus.HIGH RISK: Target INR is 2.5-3.5 for patients with mechanical heart valves.CBC W/PLT COUNT & AUTO [id number] 06:26:00 Test Item Value Reference Range Comments WHITE BLOOD CELL COUNT (BEAKER) (test symr=491) 3.0 K/ L 4.0-10.0 RED BLOOD CELL COUNT (BEAKER) (test meyq=337) 2.16 M/ L 4.20-5.80 HEMOGLOBIN (BEAKER) (test awzn=114) 7.4 GM/DL 13.0-16.8 HEMATOCRIT (BEAKER) (test vlxt=399) 23.1 % 40.0-50.0 MEAN CORPUSCULAR VOLUME (BEAKER) (test iimu=714) 107.0 fL 82.0-98.0 MEAN CORPUSCULAR HEMOGLOBIN (BEAKER) (test 34.4 pg 27.0-33.0 lgsv=171) MEAN CORPUSCULAR HEMOGLOBIN CONC (BEAKER) (test 32.1 GM/DL 32.0-36.0 trrt=754) RED CELL DISTRIBUTION WIDTH (BEAKER) (test 13.1 % 10.3-14.2 glix=228) PLATELET COUNT (BEAKER) (test pnpm=665) 72 K/CU MM 150-430 MEAN PLATELET VOLUME (BEAKER) (test eijv=479) 6.1 fL 6.5-10.5 NUCLEATED RED BLOOD CELLS (BEAKER) (test 0 /100 WBC 0-0 jhna=567) NEUTROPHILS RELATIVE PERCENT (BEAKER) (test 58 % fnia=859) LYMPHOCYTES RELATIVE PERCENT (BEAKER) (test 21 % dbak=821) MONOCYTES RELATIVE PERCENT (BEAKER) (test 15 % eqpc=573) EOSINOPHILS RELATIVE PERCENT (BEAKER) (test 4 % imsc=353) BASOPHILS RELATIVE PERCENT (BEAKER) (test 1 % gwpt=484) NEUTROPHILS ABSOLUTE COUNT (BEAKER) (test 1.73 K/ L 1.80-8.00 kkbp=664) LYMPHOCYTES ABSOLUTE COUNT (BEAKER) (test 0.64 K/ L 1.48-4.50 xbry=882) MONOCYTES ABSOLUTE COUNT (BEAKER) (test cibf=562) 0.45 K/ L 0.00-1.30 EOSINOPHILS ABSOLUTE COUNT (BEAKER) (test 0.13 K/ L 0.00-0.50 pvpb=115) BASOPHILS ABSOLUTE COUNT (BEAKER) (test rmck=339) 0.02 K/ L 0.00-0.20 0.00BASIC METABOLIC [id number] 06:24:00 Test Item Value Reference Range Comments SODIUM (BEAKER) (test 134 meq/L 136-145 pssg=843) POTASSIUM (BEAKER) (test 3.7 meq/L 3.5-5.1 tkfh=915) CHLORIDE (BEAKER) (test 105 meq/L 98-107 pxhj=714) CO2 (BEAKER) (test 21 meq/L 22-29 btty=239) BLOOD UREA NITROGEN 18 mg/dL 7-21 (BEAKER) (test anqj=882) CREATININE (BEAKER) (test 1.53 mg/dL 0.57-1.25 lngw=351) GLUCOSE RANDOM (BEAKER) 103 mg/dL 70-105 (test fapx=767) CALCIUM (BEAKER) (test 7.6 mg/dL 8.4-10.2 yvas=402) EGFR (BEAKER) (test 48 mL/min/1.73 sq m ESTIMATED GFR IS NOT dtyf=8169) ACCURATE CREATININE CLEARANCE IN PREDICTING GLOMERULAR FILTRATION RATE. ESTIMATED GFR IS NOT APPLICABLE FOR DIALYSIS PATIENTS. Specimen moderately ictericHEPATIC FUNCTION [id number] 06:19:00 Test Item Value Reference Range Comments TOTAL PROTEIN (BEAKER) (test myfq=630) 5.6 gm/dL 6.0-8.3 ALBUMIN (BEAKER) (test giee=4525) 2.4 g/dL 3.5-5.0 BILIRUBIN TOTAL (BEAKER) (test oohl=702) 4.8 mg/dL 0.2-1.2 BILIRUBIN DIRECT (BEAKER) (test lxra=107) 2.6 mg/dL 0.1-0.5 ALKALINE PHOSPHATASE (BEAKER) (test bcix=396) 70 U/L 40-150 AST (SGOT) (BEAKER) (test wiho=819) 28 U/L 5-34 ALT (SGPT) (BEAKER) (test hunp=771) 11 U/L 6-55 Specimen moderately ictericPROTHROMBIN [id number] 06:00:00 Test Item Value Reference Range Comments PROTIME (BEAKER) (test bbna=256) 36.7 seconds 11.7-14.7 INR (BEAKER) (test zdgn=920) 3.7 <=5.9 RECOMMENDED COUMADIN/WARFARIN INR THERAPY RANGESSTANDARD DOSE: 2.0 - 3.0 Includes: PROPHYLAXIS forvenous thrombosis, systemic embolization; TREATMENT for venous thrombosis and/or pulmonary embolus.HIGH RISK: Target INR is 2.5-3.5 for patients with mechanical heart valves.BODY FLUID CULTURE + GRAM [id number] 00:51:00 Test Item Value Reference Range Comments CULTURE (BEAKER) (test sgtb=1483) No growth GRAM STAIN RESULT (BEAKER) (test 3+ WBCs qkue=5448) GRAM STAIN RESULT (BEAKER) (test No organisms seen zzaz=00890) BLOOD [id number] 17:08:00 Test Item Value Reference Range Comments CULTURE (BEAKER) (test zvic=3326) No growth in 5 days BLOOD [id number] 17:06:00 Test Item Value Reference Range Comments CULTURE (BEAKER) (test jjzm=9137) No growth in 5 days CBC W/PLT COUNT & AUTO [id number] 07:05:00 Test Item Value Reference Range Comments WHITE BLOOD CELL COUNT (BEAKER) (test knrp=562) 3.5 K/ L 4.0-10.0 RED BLOOD CELL COUNT (BEAKER) (test ubst=331) 2.16 M/ L 4.20-5.80 HEMOGLOBIN (BEAKER) (test exlg=665) 7.8 GM/DL 13.0-16.8 HEMATOCRIT (BEAKER) (test zamp=363) 23.9 % 40.0-50.0 MEAN CORPUSCULAR VOLUME (BEAKER) (test azvg=792) 111.0 fL 82.0-98.0 MEAN CORPUSCULAR HEMOGLOBIN (BEAKER) (test 36.3 pg 27.0-33.0 eiba=625) MEAN CORPUSCULAR HEMOGLOBIN CONC (BEAKER) (test 32.8 GM/DL 32.0-36.0 gjpj=734) RED CELL DISTRIBUTION WIDTH (BEAKER) (test 13.9 % 10.3-14.2 wliq=055) PLATELET COUNT (BEAKER) (test niit=839) 72 K/CU MM 150-430 MEAN PLATELET VOLUME (BEAKER) (test gyaz=115) 6.4 fL 6.5-10.5 NUCLEATED RED BLOOD CELLS (BEAKER) (test 0 /100 WBC 0-0 wlzn=854) NEUTROPHILS RELATIVE PERCENT (BEAKER) (test 51 % ncfm=175) LYMPHOCYTES RELATIVE PERCENT (BEAKER) (test 25 % rpms=033) MONOCYTES RELATIVE PERCENT (BEAKER) (test 18 % csas=664) EOSINOPHILS RELATIVE PERCENT (BEAKER) (test 6 % qaan=384) BASOPHILS RELATIVE PERCENT (BEAKER) (test 0 % kwuo=615) NEUTROPHILS ABSOLUTE COUNT (BEAKER) (test 1.77 K/ L 1.80-8.00 mpyg=179) LYMPHOCYTES ABSOLUTE COUNT (BEAKER) (test 0.87 K/ L 1.48-4.50 jyef=414) MONOCYTES ABSOLUTE COUNT (BEAKER) (test hhvn=663) 0.62 K/ L 0.00-1.30 EOSINOPHILS ABSOLUTE COUNT (BEAKER) (test 0.22 K/ L 0.00-0.50 gkqm=701) BASOPHILS ABSOLUTE COUNT (BEAKER) (test qlcq=641) 0.01 K/ L 0.00-0.20 0.00BASIC METABOLIC [id number] 06:54:00 Test Item Value Reference Range Comments SODIUM (BEAKER) (test 137 meq/L 136-145 aqjl=594) POTASSIUM (BEAKER) (test 3.8 meq/L 3.5-5.1 fzjx=323) CHLORIDE (BEAKER) (test 109 meq/L 98-107 rybt=715) CO2 (BEAKER) (test 21 meq/L 22-29 jcuk=717) BLOOD UREA NITROGEN 17 mg/dL 7-21 (BEAKER) (test temn=036) CREATININE (BEAKER) (test 1.60 mg/dL 0.57-1.25 entt=559) GLUCOSE RANDOM (BEAKER) 76 mg/dL 70-105 (test iifo=250) CALCIUM (BEAKER) (test 7.5 mg/dL 8.4-10.2 vdaz=344) EGFR (BEAKER) (test 46 mL/min/1.73 sq m ESTIMATED GFR IS NOT xvdn=0288) ACCURATE CREATININE CLEARANCE IN PREDICTING GLOMERULAR FILTRATION RATE. ESTIMATED GFR IS NOT APPLICABLE FOR DIALYSIS PATIENTS. Specimen moderately ictericHEPATIC FUNCTION [id number] 06:53:00 Test Item Value Reference Range Comments TOTAL PROTEIN (BEAKER) (test tmxg=890) 5.6 gm/dL 6.0-8.3 ALBUMIN (BEAKER) (test nrqh=5152) 2.4 g/dL 3.5-5.0 BILIRUBIN TOTAL (BEAKER) (test mnei=379) 4.5 mg/dL 0.2-1.2 BILIRUBIN DIRECT (BEAKER) (test ythb=140) 2.7 mg/dL 0.1-0.5 ALKALINE PHOSPHATASE (BEAKER) (test kkby=839) 74 U/L 40-150 AST (SGOT) (BEAKER) (test aqzz=219) 36 U/L 5-34 ALT (SGPT) (BEAKER) (test ftug=968) 13 U/L 6-55 Specimen moderately ictericB-TYPE NATRIURETIC FACTOR (BNP)[id number] 06:52:00 Test Item Value Reference Range Comments B-TYPE NATRIURETIC PEPTIDE (BEAKER) (test 446 pg/mL 0-100 jzhr=933) PROTHROMBIN [id number] 06:36:00 Test Item Value Reference Range Comments PROTIME (BEAKER) (test tuvh=386) 28.7 seconds 11.7-14.7 INR (BEAKER) (test guck=481) 2.7 <=5.9 RECOMMENDED COUMADIN/WARFARIN INR THERAPY RANGESSTANDARD DOSE: 2.0 - 3.0 Includes: PROPHYLAXIS forvenous thrombosis, systemic embolization; TREATMENT for venous thrombosis and/or pulmonary embolus.HIGH RISK: Target INR is 2.5-3.5 for patients with mechanical heart valves.EOSINOPHIL SMEAR, [id number] 21: 44:00 Test Item Value Reference Range Comments EOSINOPHIL SMEAR, URINE (BEAKER) (test No EOS seen No EOS seen ldrk=0624) CREATININE, RANDOM [id number] 18:02:00 Test Item Value Reference Range Comments CREATININE URINE (BEAKER) (test kmai=116) 96.3 mg/dL Reference Range: No NormalsSODIUM, RANDOM [id number] 18:02:00 Test Item Value Reference Range Comments SODIUM URINE (BEAKER) (test ghjr=350) 58 meq/L Reference Range: No NormalsURINALYSIS W/ [id number] 17:33:00 Test Item Value Reference Range Comments COLOR (BEAKER) (test evyt=929) Yellow CLARITY (BEAKER) (test eqxd=588) Clear SPECIFIC GRAVITY UA (BEAKER) (test rupg=761) 1.009 1.001-1.035 PH UA (BEAKER) (test pzvh=876) 6.0 5.0-8.0 PROTEIN UA (BEAKER) (test bsxu=970) Negative Negative GLUCOSE UA (BEAKER) (test tsgv=848) Negative Negative KETONES UA (BEAKER) (test nhgh=755) Negative Negative BILIRUBIN UA (BEAKER) (test drcn=144) Negative Negative BLOOD UA (BEAKER) (test fnzd=495) Negative Negative NITRITE UA (BEAKER) (test paio=698) Negative Negative LEUKOCYTE ESTERASE UA (BEAKER) (test bwto=292) Negative Negative UROBILINOGEN UA (BEAKER) (test xaip=734) 4.0 mg/dL 0.2-1.0 RBC UA (BEAKER) (test pdmn=288) < /HPF WBC UA (BEAKER) (test ryoa=772) 2 /HPF BACTERIA (BEAKER) (test xkam=658) Rare SOURCE(BEAKER) (test fkru=1604) CBC W/PLT COUNT & AUTO [id number] 06:53:00 Test Item Value Reference Range Comments WHITE BLOOD CELL COUNT (BEAKER) (test oysy=005) 3.5 K/ L 4.0-10.0 RED BLOOD CELL COUNT (BEAKER) (test lgag=406) 2.17 M/ L 4.20-5.80 HEMOGLOBIN (BEAKER) (test xqnn=332) 7.9 GM/DL 13.0-16.8 HEMATOCRIT (BEAKER) (test wnfz=469) 23.9 % 40.0-50.0 MEAN CORPUSCULAR VOLUME (BEAKER) (test chhv=153) 110.0 fL 82.0-98.0 MEAN CORPUSCULAR HEMOGLOBIN (BEAKER) (test 36.1 pg 27.0-33.0 lehk=342) MEAN CORPUSCULAR HEMOGLOBIN CONC (BEAKER) (test 32.9 GM/DL 32.0-36.0 nzxq=183) RED CELL DISTRIBUTION WIDTH (BEAKER) (test 14.0 % 10.3-14.2 jvio=552) PLATELET COUNT (BEAKER) (test inqe=134) 77 K/CU MM 150-430 MEAN PLATELET VOLUME (BEAKER) (test wwcy=539) 6.1 fL 6.5-10.5 NUCLEATED RED BLOOD CELLS (BEAKER) (test 0 /100 WBC 0-0 oqvs=664) NEUTROPHILS RELATIVE PERCENT (BEAKER) (test 56 % nayv=121) LYMPHOCYTES RELATIVE PERCENT (BEAKER) (test 20 % keuc=347) MONOCYTES RELATIVE PERCENT (BEAKER) (test 18 % bgar=259) EOSINOPHILS RELATIVE PERCENT (BEAKER) (test 6 % brau=045) BASOPHILS RELATIVE PERCENT (BEAKER) (test 1 % uiga=278) NEUTROPHILS ABSOLUTE COUNT (BEAKER) (test 1.95 K/ L 1.80-8.00 ayuq=703) LYMPHOCYTES ABSOLUTE COUNT (BEAKER) (test 0.69 K/ L 1.48-4.50 oihp=764) MONOCYTES ABSOLUTE COUNT (BEAKER) (test nstq=187) 0.62 K/ L 0.00-1.30 EOSINOPHILS ABSOLUTE COUNT (BEAKER) (test 0.20 K/ L 0.00-0.50 zdot=420) BASOPHILS ABSOLUTE COUNT (BEAKER) (test wnfr=930) 0.03 K/ L 0.00-0.20 0.00BASI METABOLIC [id number] 06:45:00 Test Item Value Reference Range Comments SODIUM (BEAKER) (test 134 meq/L 136-145 xhra=858) POTASSIUM (BEAKER) (test 3.6 meq/L 3.5-5.1 rpty=643) CHLORIDE (BEAKER) (test 106 meq/L 98-107 byec=691) CO2 (BEAKER) (test 21 meq/L 22-29 lgww=034) BLOOD UREA NITROGEN 14 mg/dL 7-21 (BEAKER) (test qtyd=791) CREATININE (BEAKER) (test 1.33 mg/dL 0.57-1.25 egol=215) GLUCOSE RANDOM (BEAKER) 71 mg/dL 70-105 (test avzo=651) CALCIUM (BEAKER) (test 7.6 mg/dL 8.4-10.2 mmma=407) EGFR (BEAKER) (test 57 mL/min/1.73 sq m ESTIMATED GFR IS NOT xfvl=8530) ACCURATE CREATININE CLEARANCE IN PREDICTING GLOMERULAR FILTRATION RATE. ESTIMATED GFR IS NOT APPLICABLE FOR DIALYSIS PATIENTS. Specimen moderately ictericHEPATIC FUNCTION [id number] 06:40:00 Test Item Value Reference Range Comments TOTAL PROTEIN (BEAKER) (test kznn=001) 5.6 gm/dL 6.0-8.3 ALBUMIN (BEAKER) (test vzuv=8064) 2.1 g/dL 3.5-5.0 BILIRUBIN TOTAL (BEAKER) (test clwn=613) 4.4 mg/dL 0.2-1.2 BILIRUBIN DIRECT (BEAKER) (test tjtf=313) 2.9 mg/dL 0.1-0.5 ALKALINE PHOSPHATASE (BEAKER) (test rwnd=635) 86 U/L 40-150 AST (SGOT) (BEAKER) (test ouko=770) 45 U/L 5-34 ALT (SGPT) (BEAKER) (test kyci=176) 13 U/L 6-55 Specimen moderately ictericPROTHROMBIN [id number] 06:05:00 Test Item Value Reference Range Comments PROTIME (BEAKER) (test tmcp=510) 29.4 seconds 11.7-14.7 INR (BEAKER) (test bguc=350) 2.8 <=5.9 RECOMMENDED COUMADIN/WARFARIN INR THERAPY RANGESSTANDARD DOSE: 2.0 - 3.0 Includes: PROPHYLAXIS forvenous thrombosis, systemic embolization; TREATMENT for venous thrombosis and/or pulmonary embolus.HIGH RISK: Target INR is 2.5-3.5 for patients with mechanical heart valves.BODY FLUID CELL COUNT WITH [id number] 20:51:00 Test Item Value Reference Range Comments APPEARANCE FLUID (BEAKER) (test ovfn=843) Slightly Hazy Clear COLOR FLUID (BEAKER) (test iwyg=706) Yellow Colorless, Straw RBC FLUID (BEAKER) (test dflt=404) 545 /cu mm <=1 ADJUSTED WBC FLUID (BEAKER) (test oqcy=9894) 104 /cu mm <=5 LINING CELLS (BEAKER) (test wanw=9545) 1 /cu mm <=1 NEUTROPHILS FLUID (BEAKER) (test jjdj=4381) 3 % LYMPHS FLUID (BEAKER) (test bfqp=123) 13 % MONO/MACROPHAGE FLUID (BEAKER) (test 84 % gbkn=564) EOSINOPHILS FLUID (BEAKER) (test zgcb=659) 0 % BASO FLUID (BEAKER) (test numy=381) 0 % CONTAINER BODY FLUID (BEAKER) (test EDTA Tube kdpl=2671) POCT-GLUCOSE [id number] 18:48:00 Test Item Value Reference Range Comments POC-GLUCOSE METER (BEAKER) 105 mg/dL 70-110 TESTED AT [facility] [address], [place] (test amtd=6318) [facility] [address] BASIC METABOLIC [id number] 05:45:00 Test Item Value Reference Range Comments SODIUM (BEAKER) (test 133 meq/L 136-145 xvdh=386) POTASSIUM (BEAKER) (test 4.3 meq/L 3.5-5.1 Specimen moderately mlwa=992) hemolyzed CHLORIDE (BEAKER) (test 107 meq/L 98-107 ddhr=464) CO2 (BEAKER) (test 19 meq/L 22-29 mlsx=971) BLOOD UREA NITROGEN 10 mg/dL 7-21 (BEAKER) (test okfv=364) CREATININE (BEAKER) (test 0.86 mg/dL 0.57-1.25 Specimen moderately upgh=743) hemolyzed GLUCOSE RANDOM (BEAKER) 68 mg/dL 70-105 (test ipds=327) CALCIUM (BEAKER) (test 7.5 mg/dL 8.4-10.2 svse=412) EGFR (BEAKER) (test 94 mL/min/1.73 sq m ESTIMATED GFR IS NOT lvgr=2650) ACCURATE CREATININE CLEARANCE IN PREDICTING GLOMERULAR FILTRATION RATE. ESTIMATED GFR IS NOT APPLICABLE FOR DIALYSIS PATIENTS. Specimen slightly ictericHEPATIC FUNCTION [id number] 05:45:00 Test Item Value Reference Range Comments TOTAL PROTEIN (BEAKER) (test 5.9 gm/dL 6.0-8.3 Specimen moderately hemolyzed bpba=200) ALBUMIN (BEAKER) (test 1.9 g/dL 3.5-5.0 Specimen moderately hemolyzed xqvf=3344) BILIRUBIN TOTAL (BEAKER) (test 4.4 mg/dL 0.2-1.2 Specimen moderately hemolyzed bonv=628) BILIRUBIN DIRECT (BEAKER) 2.6 mg/dL 0.1-0.5 Specimen moderately hemolyzed (test slfw=812) ALKALINE PHOSPHATASE (BEAKER) 86 U/L 40-150 (test dslu=429) AST (SGOT) (BEAKER) (test 74 U/L 5-34 Specimen moderately hemolyzed jtzu=847) ALT (SGPT) (BEAKER) (test 17 U/L 6-55 Specimen moderately utzx=036) hemolyzed Specimen slightly ictericCBC W/PLT COUNT & AUTO [id number] 05:21 :00 Test Item Value Reference Range Comments WHITE BLOOD CELL COUNT (BEAKER) (test aegz=509) 3.5 K/ L 4.0-10.0 RED BLOOD CELL COUNT (BEAKER) (test bovy=606) 2.06 M/ L 4.20-5.80 HEMOGLOBIN (BEAKER) (test qscj=768) 7.9 GM/DL 13.0-16.8 HEMATOCRIT (BEAKER) (test btem=636) 22.8 % 40.0-50.0 MEAN CORPUSCULAR VOLUME (BEAKER) (test vzla=703) 110.0 fL 82.0-98.0 MEAN CORPUSCULAR HEMOGLOBIN (BEAKER) (test 38.2 pg 27.0-33.0 cqaj=693) MEAN CORPUSCULAR HEMOGLOBIN CONC (BEAKER) (test 34.6 GM/DL 32.0-36.0 jnze=397) RED CELL DISTRIBUTION WIDTH (BEAKER) (test 13.5 % 10.3-14.2 iyjl=875) PLATELET COUNT (BEAKER) (test odju=853) 61 K/CU MM 150-430 MEAN PLATELET VOLUME (BEAKER) (test ikcf=621) 6.8 fL 6.5-10.5 NUCLEATED RED BLOOD CELLS (BEAKER) (test 0 /100 WBC 0-0 iptc=038) NEUTROPHILS RELATIVE PERCENT (BEAKER) (test 51 % kpdy=238) LYMPHOCYTES RELATIVE PERCENT (BEAKER) (test 24 % ibcl=666) MONOCYTES RELATIVE PERCENT (BEAKER) (test 18 % tcjz=401) EOSINOPHILS RELATIVE PERCENT (BEAKER) (test 7 % gkgi=228) BASOPHILS RELATIVE PERCENT (BEAKER) (test 1 % frbm=460) NEUTROPHILS ABSOLUTE COUNT (BEAKER) (test 1.76 K/ L 1.80-8.00 xocv=518) LYMPHOCYTES ABSOLUTE COUNT (BEAKER) (test 0.85 K/ L 1.48-4.50 buoh=603) MONOCYTES ABSOLUTE COUNT (BEAKER) (test qthg=873) 0.61 K/ L 0.00-1.30 EOSINOPHILS ABSOLUTE COUNT (BEAKER) (test 0.23 K/ L 0.00-0.50 cgmu=739) BASOPHILS ABSOLUTE COUNT (BEAKER) (test ozey=353) 0.02 K/ L 0.00-0.20 0.00PROTHROMBIN [id number] 05:19:00 Test Item Value Reference Range Comments PROTIME (BEAKER) (test ljvk=846) 28.2 seconds 11.7-14.7 INR (BEAKER) (test qydt=554) 2.6 <=5.9 RECOMMENDED COUMADIN/WARFARIN INR THERAPY RANGESSTANDARD DOSE: 2.0 - 3.0 Includes: PROPHYLAXIS forvenous thrombosis, systemic embolization; TREATMENT for venous thrombosis and/or pulmonary embolus.HIGH RISK: Target INR is 2.5-3.5 for patients with mechanical heart valves.BODY FLUID CULTURE + GRAM [id number] 14:14:00 Test Item Value Reference Range Comments CULTURE (BEAKER) (test wtbx=0190) No growth GRAM STAIN RESULT (BEAKER) (test 2+ WBCs sqvd=5655) GRAM STAIN RESULT (BEAKER) (test No organisms seen dcns=85735) CBC W/PLT COUNT & AUTO [id number] 10:28:00 Test Item Value Reference Range Comments WHITE BLOOD CELL COUNT (BEAKER) (test atqc=950) 3.6 K/ L 4.0-10.0 RED BLOOD CELL COUNT (BEAKER) (test zjni=633) 2.17 M/ L 4.20-5.80 HEMOGLOBIN (BEAKER) (test ahcx=400) 7.7 GM/DL 13.0-16.8 HEMATOCRIT (BEAKER) (test wwof=336) 23.8 % 40.0-50.0 MEAN CORPUSCULAR VOLUME (BEAKER) (test gibr=875) 110.0 fL 82.0-98.0 MEAN CORPUSCULAR HEMOGLOBIN (BEAKER) (test 35.3 pg 27.0-33.0 bumo=976) MEAN CORPUSCULAR HEMOGLOBIN CONC (BEAKER) (test 32.1 GM/DL 32.0-36.0 dghp=658) RED CELL DISTRIBUTION WIDTH (BEAKER) (test 13.7 % 10.3-14.2 axjf=572) PLATELET COUNT (BEAKER) (test ndcb=615) 62 K/CU MM 150-430 MEAN PLATELET VOLUME (BEAKER) (test wfgw=859) 6.5 fL 6.5-10.5 NUCLEATED RED BLOOD CELLS (BEAKER) (test 0 /100 WBC 0-0 eonb=431) NEUTROPHILS RELATIVE PERCENT (BEAKER) (test 58 % rlxk=777) LYMPHOCYTES RELATIVE PERCENT (BEAKER) (test 18 % hflg=791) MONOCYTES RELATIVE PERCENT (BEAKER) (test 17 % xado=771) EOSINOPHILS RELATIVE PERCENT (BEAKER) (test 8 % cfkr=956) BASOPHILS RELATIVE PERCENT (BEAKER) (test 0 % aioj=422) NEUTROPHILS ABSOLUTE COUNT (BEAKER) (test 2.10 K/ L 1.80-8.00 gfud=169) LYMPHOCYTES ABSOLUTE COUNT (BEAKER) (test 0.63 K/ L 1.48-4.50 wavz=654) MONOCYTES ABSOLUTE COUNT (BEAKER) (test asrz=851) 0.59 K/ L 0.00-1.30 EOSINOPHILS ABSOLUTE COUNT (BEAKER) (test 0.28 K/ L 0.00-0.50 sseg=658) BASOPHILS ABSOLUTE COUNT (BEAKER) (test stiv=096) 0.00 K/ L 0.00-0.20 [id number] 10:16:00 Test Item Value Reference Range Comments PROCALCITONIN (BEAKER) (test guvf=6869) < ng/mL <0.05 SEPSIS RISK (ng/mL)Low: 0.05-0.50Intermediate: 0.51-2.00High: & gt;=2.01HEPATIC FUNCTION [id number] 06:26:00 Test Item Value Reference Range Comments TOTAL PROTEIN (BEAKER) (test xzbz=109) 5.6 gm/dL 6.0-8.3 ALBUMIN (BEAKER) (test mykw=2516) 1.9 g/dL 3.5-5.0 BILIRUBIN TOTAL (BEAKER) (test rrai=154) 4.7 mg/dL 0.2-1.2 BILIRUBIN DIRECT (BEAKER) (test oxux=139) 2.9 mg/dL 0.1-0.5 ALKALINE PHOSPHATASE (BEAKER) (test yive=524) 85 U/L 40-150 AST (SGOT) (BEAKER) (test yave=210) 53 U/L 5-34 ALT (SGPT) (BEAKER) (test ezyo=350) 14 U/L 6-55 Specimen moderately ictericBASIC METABOLIC [id number] 06:26:00 Test Item Value Reference Range Comments SODIUM (BEAKER) (test 134 meq/L 136-145 ykjx=795) POTASSIUM (BEAKER) (test 3.8 meq/L 3.5-5.1 dpnr=088) CHLORIDE (BEAKER) (test 107 meq/L 98-107 ztke=825) CO2 (BEAKER) (test 19 meq/L 22-29 jnga=901) BLOOD UREA NITROGEN 8 mg/dL 7-21 (BEAKER) (test pyzy=645) CREATININE (BEAKER) (test 0.73 mg/dL 0.57-1.25 shbv=964) GLUCOSE RANDOM (BEAKER) 73 mg/dL 70-105 (test cunw=984) CALCIUM (BEAKER) (test 7.2 mg/dL 8.4-10.2 cklo=614) EGFR (BEAKER) (test 113 mL/min/1.73 sq m ESTIMATED GFR IS NOT xbld=7479) ACCURATE CREATININE CLEARANCE IN PREDICTING GLOMERULAR FILTRATION RATE. ESTIMATED GFR IS NOT APPLICABLE FOR DIALYSIS PATIENTS. Specimen moderately ictericPROTHROMBIN [id number] 06:05:00 Test Item Value Reference Range Comments PROTIME (BEAKER) (test vdya=864) 30.9 seconds 11.7-14.7 INR (BEAKER) (test xvao=073) 3.0 <=5.9 RECOMMENDED COUMADIN/WARFARIN INR THERAPY RANGESSTANDARD DOSE: 2.0 - 3.0 Includes: PROPHYLAXIS forvenous thrombosis, systemic embolization; TREATMENT for venous thrombosis and/or pulmonary embolus.HIGH RISK: Target INR is 2.5-3.5 for patients with mechanical heart valves.[id number] 05:54:00 Test Item Value Reference Range Comments PREALBUMIN (BEAKER) (test ofqh=686) < mg/dL 14-45 URINE [id number] 12:11:00 Test Item Value Reference Range Comments CULTURE (BEAKER) (test juot=0658) No growth VANCOMYCIN LEVEL, [id number] 09:26:00 Test Item Value Reference Range Comments VANCOMYCIN TROUGH (BEAKER) (test hjdb=361) 15.3 ug/mL 10.0-20.0 HEPATIC FUNCTION [id number] 06:17:00 Test Item Value Reference Range Comments TOTAL PROTEIN (BEAKER) (test mcid=066) 5.6 gm/dL 6.0-8.3 ALBUMIN (BEAKER) (test dvsv=2269) 2.0 g/dL 3.5-5.0 BILIRUBIN TOTAL (BEAKER) (test fqyt=462) 4.2 mg/dL 0.2-1.2 BILIRUBIN DIRECT (BEAKER) (test sopu=253) 2.7 mg/dL 0.1-0.5 ALKALINE PHOSPHATASE (BEAKER) (test mjfd=230) 98 U/L 40-150 AST (SGOT) (BEAKER) (test unhe=491) 45 U/L 5-34 ALT (SGPT) (BEAKER) (test fzly=398) 12 U/L 6-55 Specimen slightly ictericBASIC METABOLIC [id number] 06:17:00 Test Item Value Reference Range Comments SODIUM (BEAKER) (test 133 meq/L 136-145 ohzq=508) POTASSIUM (BEAKER) (test 3.4 meq/L 3.5-5.1 mbgr=800) CHLORIDE (BEAKER) (test 107 meq/L 98-107 rylb=052) CO2 (BEAKER) (test 22 meq/L 22-29 jdwr=774) BLOOD UREA NITROGEN 7 mg/dL 7-21 (BEAKER) (test sisq=957) CREATININE (BEAKER) (test 0.73 mg/dL 0.57-1.25 rxxy=400) GLUCOSE RANDOM (BEAKER) 87 mg/dL 70-105 (test kzwx=340) CALCIUM (BEAKER) (test 7.2 mg/dL 8.4-10.2 pdja=080) EGFR (BEAKER) (test 113 mL/min/1.73 sq m ESTIMATED GFR IS NOT rkxu=5738) ACCURATE CREATININE CLEARANCE IN PREDICTING GLOMERULAR FILTRATION RATE. ESTIMATED GFR IS NOT APPLICABLE FOR DIALYSIS PATIENTS. Specimen slightly ictericPROTHROMBIN [id number] 06:04:00 Test Item Value Reference Range Comments PROTIME (BEAKER) (test oyez=386) 31.7 seconds 11.7-14.7 INR (BEAKER) (test elcg=917) 3.0 <=5.9 RECOMMENDED COUMADIN/WARFARIN INR THERAPY RANGESSTANDARD DOSE: 2.0 - 3.0 Includes: PROPHYLAXIS forvenous thrombosis, systemic embolization; TREATMENT for venous thrombosis and/or pulmonary embolus.HIGH RISK: Target INR is 2.5-3.5 for patients with mechanical heart valves.VITAMIN B12 AND [id number] 19:36 :00 Test Item Value Reference Range Comments VITAMIN B12 (BEAKER) (test jont=042) 1121 pg/mL 213-816 FOLATE (BEAKER) (test polw=237) 18.3 ng/mL >=7.0 Effective 09/13/2014: Folate Reference Range ChangeNew: >=7.0 Previous: & gt;=5.4VITAMIN B12 AND [id number] 14:57:00 Test Item Value Reference Range Comments VITAMIN B12 (BEAKER) (test xemw=405) 1325 pg/mL 213-816 FOLATE (BEAKER) (test doys=982) 8.3 ng/mL >=7.0 Effective 09/13/2014: Folate Reference Range ChangeNew: >=7.0 Previous: & gt;=5.4ANTI-NUCLEAR ANTIBODY (CHERYL)2017-02-03 13:56:00 Test Item Value Reference Range Comments ANTI-NUCLEAR ANTIBODY (CHERYL) (BEAKER) (test Negative Negative jbvk=363) HEPATITIS B CORE ANTIBODY, [id number] 12:27:00 Test Item Value Reference Range Comments HEPATITIS B CORE TOTAL ANTIBODY (BEAKER) (test Nonreactive Nonreactive pajt=041) CRYPTOCOCCAL [id number] 11:25:00 Test Item Value Reference Range Comments CRYPTOCOCCAL ANTIGEN, SERUM (BEAKER) (test Negative Negative, Interference esmh=0657) HEPATITIS B SURFACE [id number] 11:15:00 Test Item Value Reference Range Comments HEPATITIS B SURFACE ANTIBODY (BEAKER) (test < mIU/mL <8.0 ktvx=376) HEPATITIS B SURFACE [id number] 09:53:00 Test Item Value Reference Range Comments HEPATITIS B SURFACE ANTIGEN (2) (BEAKER) (test Nonreactive Nonreactive ylqu=0931) HIV-1 ANTIGEN WITH HIV-1/2 [id number] 09:53:00 Test Item Value Reference Range Comments HIV-1 ANTIGEN WITH HIV 1\\T\\2 ANTIBODY (2) Nonreactive Nonreactive (BEAKER) (test cdfd=0683) HEPATIC FUNCTION [id number] 07:01:00 Test Item Value Reference Range Comments TOTAL PROTEIN (BEAKER) (test iarq=068) 5.5 gm/dL 6.0-8.3 ALBUMIN (BEAKER) (test qbuw=2156) 2.0 g/dL 3.5-5.0 BILIRUBIN TOTAL (BEAKER) (test vcpt=628) 3.8 mg/dL 0.2-1.2 BILIRUBIN DIRECT (BEAKER) (test vcsb=428) 2.5 mg/dL 0.1-0.5 ALKALINE PHOSPHATASE (BEAKER) (test zufs=249) 108 U/L 40-150 AST (SGOT) (BEAKER) (test lidy=932) 40 U/L 5-34 ALT (SGPT) (BEAKER) (test wuoc=829) 10 U/L 6-55 Specimen slightly ictericBASIC METABOLIC [id number] 07:01:00 Test Item Value Reference Range Comments SODIUM (BEAKER) (test 133 meq/L 136-145 nkzk=127) POTASSIUM (BEAKER) (test 3.7 meq/L 3.5-5.1 koae=840) CHLORIDE (BEAKER) (test 108 meq/L 98-107 rtin=235) CO2 (BEAKER) (test 20 meq/L 22-29 jtyv=834) BLOOD UREA NITROGEN 7 mg/dL 7-21 (BEAKER) (test brhy=492) CREATININE (BEAKER) (test 0.76 mg/dL 0.57-1.25 xgnu=124) GLUCOSE RANDOM (BEAKER) 100 mg/dL 70-105 (test lcvj=471) CALCIUM (BEAKER) (test 7.3 mg/dL 8.4-10.2 pamv=496) EGFR (BEAKER) (test 108 mL/min/1.73 sq m ESTIMATED GFR IS NOT jrfd=8937) ACCURATE CREATININE CLEARANCE IN PREDICTING GLOMERULAR FILTRATION RATE. ESTIMATED GFR IS NOT APPLICABLE FOR DIALYSIS PATIENTS. Specimen slightly ictericCBC W/PLT COUNT & AUTO [id number] 06:53 :00 Test Item Value Reference Range Comments WHITE BLOOD CELL COUNT (BEAKER) (test nxtr=827) 3.5 K/ L 4.0-10.0 RED BLOOD CELL COUNT (BEAKER) (test mjfo=512) 1.83 M/ L 4.20-5.80 HEMOGLOBIN (BEAKER) (test nxvi=127) 7.3 GM/DL 13.0-16.8 HEMATOCRIT (BEAKER) (test qzex=293) 19.9 % 40.0-50.0 MEAN CORPUSCULAR VOLUME (BEAKER) (test wfxe=908) 109.0 fL 82.0-98.0 MEAN CORPUSCULAR HEMOGLOBIN (BEAKER) (test 39.9 pg 27.0-33.0 bzvw=736) MEAN CORPUSCULAR HEMOGLOBIN CONC (BEAKER) (test 36.6 GM/DL 32.0-36.0 wxqx=081) RED CELL DISTRIBUTION WIDTH (BEAKER) (test 14.3 % 10.3-14.2 tgop=965) PLATELET COUNT (BEAKER) (test lyei=159) 35 K/CU MM 150-430 MEAN PLATELET VOLUME (BEAKER) (test bzyc=633) 6.6 fL 6.5-10.5 NUCLEATED RED BLOOD CELLS (BEAKER) (test 0 /100 WBC 0-0 iqbj=537) NEUTROPHILS RELATIVE PERCENT (BEAKER) (test 60 % lwaq=108) LYMPHOCYTES RELATIVE PERCENT (BEAKER) (test 18 % ceqg=722) MONOCYTES RELATIVE PERCENT (BEAKER) (test 17 % pegr=731) EOSINOPHILS RELATIVE PERCENT (BEAKER) (test 6 % fnod=572) BASOPHILS RELATIVE PERCENT (BEAKER) (test 0 % jnvy=821) NEUTROPHILS ABSOLUTE COUNT (BEAKER) (test 2.06 K/ L 1.80-8.00 pudn=588) LYMPHOCYTES ABSOLUTE COUNT (BEAKER) (test 0.61 K/ L 1.48-4.50 nxag=583) MONOCYTES ABSOLUTE COUNT (BEAKER) (test qbtx=205) 0.58 K/ L 0.00-1.30 EOSINOPHILS ABSOLUTE COUNT (BEAKER) (test 0.19 K/ L 0.00-0.50 fnky=833) BASOPHILS ABSOLUTE COUNT (BEAKER) (test olqs=416) 0.01 K/ L 0.00-0.20 0.00PROTHROMBIN [id number] 06:39:00 Test Item Value Reference Range Comments PROTIME (BEAKER) (test hrjs=560) 30.6 seconds 11.7-14.7 INR (BEAKER) (test oitb=126) 2.9 <=5.9 RECOMMENDED COUMADIN/WARFARIN INR THERAPY RANGESSTANDARD DOSE: 2.0 - 3.0 Includes: PROPHYLAXIS forvenous thrombosis, systemic embolization; TREATMENT for venous thrombosis and/or pulmonary embolus.HIGH RISK: Target INR is 2.5-3.5 for patients with mechanical heart valves.URINALYSIS W/ [id number] 16 :58:00 Test Item Value Reference Range Comments COLOR (BEAKER) (test rwhc=784) Yellow CLARITY (BEAKER) (test yvho=715) Clear SPECIFIC GRAVITY UA (BEAKER) (test 1.025 1.001-1.035 qwvz=117) PH UA (BEAKER) (test casp=106) 7.0 5.0-8.0 PROTEIN UA (BEAKER) (test kndr=267) Negative Negative GLUCOSE UA (BEAKER) (test csgb=179) Negative Negative KETONES UA (BEAKER) (test kaew=891) Negative Negative BILIRUBIN UA (BEAKER) (test vlpv=335) Positive Negative BLOOD UA (BEAKER) (test uqlb=092) Negative Negative NITRITE UA (BEAKER) (test svbl=964) Negative Negative LEUKOCYTE ESTERASE UA (BEAKER) (test Negative Negative hbtv=235) UROBILINOGEN UA (BEAKER) (test czay=005) 8.0 mg/dL 0.2-1.0 RBC UA (BEAKER) (test xqgv=726) 0 /HPF WBC UA (BEAKER) (test pncy=142) 2 /HPF MUCUS (BEAKER) (test mdyu=6887) Rare HYALINE CASTS (BEAKER) (test oihb=921) 3 /LPF SOURCE(BEAKER) (test ztqe=8726) Urine, Clean Catch [id number] 13:32:00 Test Item Value Reference Range Comments FERRITIN (BEAKER) (test abfc=536) 116 ng/mL 5-275 Effective 09/13/2014: Reference Range ChangeNew: Male 5-275 Previous: Male 22-322 Female 5-275 Female 10-291HEPATITIS A ANTIBODY, [id number] 13:19:00 Test Item Value Reference Range Comments HEPATITIS A IGG ANTIBODY (BEAKER) (test kuub=7887) Reactive Nonreactive ALPHA FETOPROTEIN (AFP), TUMOR [id number] 13:17:00 Test Item Value Reference Range Comments ALPHA-FETOPROTEIN (BEAKER) (test zwiz=4546) 4.5 ng/mL <10.0 Effective 09/13/2014: Reference Range ChangeNew: <10.0 Previous: 0.0- 8.0HEPATITIS C [id number] 13:17:00 Test Item Value Reference Range Comments HEPATITIS C ANTIBODY (BEAKER) (test nitv=327) Nonreactive Nonreactive BODY FLUID CELL COUNT WITH [id number] 13:03:00 Test Item Value Reference Range Comments APPEARANCE FLUID (BEAKER) (test wwbk=207) Cloudy Clear COLOR FLUID (BEAKER) (test yzny=727) Yellow Colorless, Straw RBC FLUID (BEAKER) (test yfrp=034) 1519 /cu mm <=1 ADJUSTED WBC FLUID (BEAKER) (test mbqp=0369) 108 /cu mm <=5 LINING CELLS (BEAKER) (test wjso=2115) 14 /cu mm <=1 NEUTROPHILS FLUID (BEAKER) (test qmof=1205) 11 % LYMPHS FLUID (BEAKER) (test kkzu=466) 30 % MONO/MACROPHAGE FLUID (BEAKER) (test lzff=527) 59 % EOSINOPHILS FLUID (BEAKER) (test nsus=770) 0 % BASO FLUID (BEAKER) (test qwny=542) 0 % CONTAINER BODY FLUID (BEAKER) (test xpor=8367) EDTA Tube BASIC METABOLIC [id number] 12:56:00 Test Item Value Reference Range Comments SODIUM (BEAKER) (test 131 meq/L 136-145 xbzf=982) POTASSIUM (BEAKER) (test 4.0 meq/L 3.5-5.1 Specimen moderately irzd=732) hemolyzed CHLORIDE (BEAKER) (test 105 meq/L 98-107 arfs=810) CO2 (BEAKER) (test 18 meq/L 22-29 fmgn=444) BLOOD UREA NITROGEN 6 mg/dL 7-21 (BEAKER) (test rkiv=875) CREATININE (BEAKER) (test 0.72 mg/dL 0.57-1.25 Specimen moderately lcml=772) hemolyzed GLUCOSE RANDOM (BEAKER) 103 mg/dL 70-105 (test dcoo=189) CALCIUM (BEAKER) (test 7.4 mg/dL 8.4-10.2 ztcz=169) EGFR (BEAKER) (test 115 mL/min/1.73 sq m ESTIMATED GFR IS NOT wete=0241) ACCURATE CREATININE CLEARANCE IN PREDICTING GLOMERULAR FILTRATION RATE. ESTIMATED GFR IS NOT APPLICABLE FOR DIALYSIS PATIENTS. Specimen moderately ictericIRON, TIBC, % SAT. (WITHOUT FERRITIN)2017-02-02 12:56 :00 Test Item Value Reference Range Comments IRON (BEAKER) (test wpnq=061) 55 ug/dL 40-160 TOTAL IRON BINDING CAPACITY (BEAKER) (test 175 ug/dL 250-450 wzrw=991) IRON % SATURATION (2) (BEAKER) (test lnyp=8996) 31 % 20-55 HEPATIC FUNCTION [id number] 12:50:00 Test Item Value Reference Range Comments TOTAL PROTEIN (BEAKER) (test 6.7 gm/dL 6.0-8.3 Specimen moderately hemolyzed nqas=322) ALBUMIN (BEAKER) (test 2.0 g/dL 3.5-5.0 Specimen moderately hemolyzed agea=0834) BILIRUBIN TOTAL (BEAKER) (test 5.1 mg/dL 0.2-1.2 Specimen moderately hemolyzed wyor=745) BILIRUBIN DIRECT (BEAKER) 2.8 mg/dL 0.1-0.5 Specimen moderately hemolyzed (test yxqo=841) ALKALINE PHOSPHATASE (BEAKER) 99 U/L 40-150 (test rvxn=191) AST (SGOT) (BEAKER) (test 62 U/L 5-34 Specimen moderately hemolyzed lklk=238) ALT (SGPT) (BEAKER) (test 15 U/L 6-55 Specimen moderately nxww=862) hemolyzed Specimen moderately ictericCBC W/PLT COUNT & AUTO [id number] 12: 47:00 Test Item Value Reference Range Comments WHITE BLOOD CELL COUNT (BEAKER) (test pjao=549) 3.3 K/ L 4.0-10.0 RED BLOOD CELL COUNT (BEAKER) (test ivyb=236) 2.08 M/ L 4.20-5.80 HEMOGLOBIN (BEAKER) (test uszr=001) 7.8 GM/DL 13.0-16.8 HEMATOCRIT (BEAKER) (test izyw=788) 22.9 % 40.0-50.0 MEAN CORPUSCULAR VOLUME (BEAKER) (test puao=661) 110.0 fL 82.0-98.0 MEAN CORPUSCULAR HEMOGLOBIN (BEAKER) (test 37.4 pg 27.0-33.0 dpyn=159) MEAN CORPUSCULAR HEMOGLOBIN CONC (BEAKER) (test 34.1 GM/DL 32.0-36.0 udce=764) RED CELL DISTRIBUTION WIDTH (BEAKER) (test 15.0 % 10.3-14.2 amrm=911) PLATELET COUNT (BEAKER) (test enjq=485) 48 K/CU MM 150-430 MEAN PLATELET VOLUME (BEAKER) (test jwqt=214) 6.6 fL 6.5-10.5 NUCLEATED RED BLOOD CELLS (BEAKER) (test 0 /100 WBC 0-0 woqo=905) NEUTROPHILS RELATIVE PERCENT (BEAKER) (test 62 % hmtl=159) LYMPHOCYTES RELATIVE PERCENT (BEAKER) (test 17 % rvzj=103) MONOCYTES RELATIVE PERCENT (BEAKER) (test 15 % uyii=200) EOSINOPHILS RELATIVE PERCENT (BEAKER) (test 6 % zsox=566) BASOPHILS RELATIVE PERCENT (BEAKER) (test 0 % mjjg=087) NEUTROPHILS ABSOLUTE COUNT (BEAKER) (test 2.03 K/ L 1.80-8.00 vxol=430) LYMPHOCYTES ABSOLUTE COUNT (BEAKER) (test 0.57 K/ L 1.48-4.50 qujm=889) MONOCYTES ABSOLUTE COUNT (BEAKER) (test evaz=240) 0.48 K/ L 0.00-1.30 EOSINOPHILS ABSOLUTE COUNT (BEAKER) (test 0.19 K/ L 0.00-0.50 iwpp=991) BASOPHILS ABSOLUTE COUNT (BEAKER) (test kgxr=623) 0.01 K/ L 0.00-0.20 0.00PROTHROMBIN [id number] 12:42:00 Test Item Value Reference Range Comments PROTIME (BEAKER) (test yrsr=458) 27.0 seconds 11.7-14.7 INR (BEAKER) (test dfei=322) 2.5 <=5.9 RECOMMENDED COUMADIN/WARFARIN INR THERAPY RANGESSTANDARD DOSE: 2.0 - 3.0 Includes: PROPHYLAXIS forvenous thrombosis, systemic embolization; TREATMENT for venous thrombosis and/or pulmonary embolus.HIGH RISK: Target INR is 2.5-3.5 for patients with mechanical heart valves.ALBUMIN, BODY [id number] 11:46:00 Test Item Value Reference Range Comments ALBUMIN FLUID (BEAKER) (test nqqb=460) 0.5 gm/dL Reference Range: No Normals Assay performance has not been validated for this type of specimen.PROTEIN, BODY [id number] 11:42:00 Test Item Value Reference Range Comments PROTEIN FLUID (BEAKER) (test kpyo=810) 1.3 g/dL Absence of reference range indicates that normals have not been defined.Assay performance has not been validated for this type of specimen.
--- OUTSIDE RECORDS SUMMARY | 2018-10-02 15:33 | XMS REPORT ---
[...] Status Dosage System Date Date Ondansetron HCl [facility] 34503168423 4 MG Orally Active 1 tab every 8 hours as needed for Nausea and vomiting Hydrocortisone ND 25479740317 20 MG Orally AM Active 1 tablet Once a day with food or milk Magnesium Oxide ND 66746339921 400 MG Orally Active 1 tablet BID as needed Rifaximin [facility] [address]-32 550 MG Orally Active 1 tablet Twice a day Pantoprazole ND 84345658518 40 MG Orally Active 1 tablet Sodium Once a day Sodium Chloride ND 57931585715 1 GM Orally TID Active 2 tablets Lactulose ND 51663960517 10 GM/15ML Active 15 ml Orally TID Ondansetron HCl [facility] 98970070062 4 MG Active 1 TAB EVERY 8 HOURS NEEDED FOR NAUSEA AND VOMITING ORALLY 10 DAYS Citalopram [facility] 78197028256 40 MG Orally Active take one Hydrobromide once a day daily Hydrocortisone [facility] 08810805898 10 MG Orally PM Active 1 tablet Once a day with food or milk NuFera [facility] 28137688159 - Orally once a Active 1 tab day Citalopram [facility] 56515627016 10 MG Active TAKE ONE Hydrobromide DAILY Ursodiol [facility] 63609232003 300 MG Orally Active not defined Midodrine HCl [facility] 10389456441 10 MG Orally Active 1 tablet Three times a day Results No Known Results Summary Purpose eClinicalWorks Submission
--- OUTSIDE RECORDS SUMMARY | 2018-10-02 15:33 | XMS REPORT ---
[...] Status Dosage System Date Date Midodrine HCl [facility] 31296282674 10 MG Orally Active 1 tablet Three times a day Pantoprazole [facility] 19434643166 40 MG Orally Active 1 tablet Sodium Once a day Sodium Chloride ND 30368925732 1 GM Orally TID Active 2 tablets Ondansetron HCl ND 23529655857 4 MG Orally Active 1 tab every 8 hours as needed for Nausea and vomiting Hydrocortisone ND 64867504000 20 MG Orally AM Active 1 tablet Once a day with food or milk Ursodiol ND 12756613105 300 MG Orally Active not defined Lactulose ND 60744963107 10 GM/15ML Active 15 ml Orally TID Citalopram [facility] 34653917818 10 MG Active TAKE ONE Hydrobromide DAILY Rifaximin [facility] [address]-18 550 MG Orally Active 1 tablet Twice a day Ondansetron HCl [facility] 20647537379 4 MG Active 1 TAB EVERY 8 HOURS NEEDED FOR NAUSEA AND VOMITING ORALLY 10 DAYS Magnesium Oxide [facility] 66456777106 400 MG Orally Active 1 tablet BID as needed NuFera [facility] 15193596064 - Orally once a Active 1 tab day Hydrocortisone [facility] 90535709114 10 MG Orally PM Active 1 tablet Once a day with food or milk Results No Known Results Summary Purpose eClinicalWorks Submission
[2018-10-02 16:15] LABS: Absolute Lymphocytes (CBC) 0.6 K/uL (0.7-4.9); Absolute Monocytes 0.7 K/uL (0.1-1.3); Basophils % 0.4 % (0-1.3); Eosinophils % 8.4 % (0-4.4); Hematocrit 23.1 % (39.6-49.0); Lymphocytes % 16.2 % (15.3-44.8); MCH 32.8 pg (27.0-35.0); MCV 93.6 fL (80-100); MPV 7.4 fL (7.6-11.3); Monocytes % 18.7 % (3.3-12.3); RBC Red Blood Cell Count 2.47 M/uL (4.33-5.43)
[2018-10-02 16:17] LABS: Protime INR 1.72
[2018-10-02 16:38] LABS: ALT/SGPT 14 U/L (12-78); AST/SGOT 18 U/L (15-37); Albumin 3.1 g/dL (3.4-5.0); Alkaline Phosphatase 203 U/L (45-117); BUN Blood Urea Nitrogen 47 mg/dL (7-18); Bicarbonate 26 mmol/L (21-32); Bilirubin Direct 1.5 mg/dL (0-0.2); Bilirubin Total 2.4 mg/dL (0.2-1.0); Glucose Level 156 mg/dL (74-106); Magnesium 2.7 mg/dL (1.8-2.4); NT PRO-BNP 317 pg/mL (<125); Protein, Total 5.5 g/dL (6.4-8.2); Sodium Level 128 mmol/L (136-145); Troponin (Emerg Dept Use Only) < 0.02 ng/mL (0.0-0.045)
--- NOTE | 2018-10-02 16:39 | RAD REPORT ---
EXAM DESCRIPTION: CT - Head Brain Wo Cont - 10/02/2018 4:11 pm CLINICAL HISTORY: Weakness, altered mental status, ascites with liver failure COMPARISON: March 09, 2018 TECHNIQUE: Axial 5 mm thick images of the head were obtained without IV contrast. All CT scans are performed using dose optimization technique as appropriate and may include automated exposure control or mA/KV adjustment according to patient size. FINDINGS: No intracranial hemorrhage, mass, edema or shift of mid-line structures. No acute infarcti on changes seen. No cortical edema or sulcal effacement. Advanced for age atrophy changes are present . Chronic ischemic changes are present. Ventricles are in proportion to volume loss. Patient has dens e arterial tree calcifications. The intracranial findings match the prior study. Mastoid air cells and visualized portions of the paranasal sinuses are clear. No acute bony findings. IMPRESSION: No hemorrhage, mass or acute intracranial finding. Advanced for age atrophy and chronic ischemic change similar to a February examination.
[2018-10-02 16:43] LABS: Blood Morphology Comment NOTED (NOT SEEN); Hypochromasia 1+; Platelet Estimate DECR; Polychromasia SLIGHT
--- NOTE | 2018-10-02 16:48 | RAD REPORT ---
EXAM DESCRIPTION: RAD - Chest Single View - 10/02/2018 4:17 pm CLINICAL HISTORY: Weakness, shortness of breath, chronic ascites COMPARISON: September 22 TECHNIQUE: AP portable chest image was obtained 1603 hours . FINDINGS: Chronic interstitial lung disease is present not substantially different from comparison. No significant interstitial or alveolar edema pattern. Heart and vasculature are normal. No measurabl e pleural effusion and no pneumothorax. No acute bony abnormality seen. No acute aortic findings susp ected. IMPRESSION: No significant edema or acute cardiopulmonary finding. Chest findings are not significantly different from comparison.
[2018-10-02] MEDS ORDERED: NA CHLORIDE 0.9% 500 ML ONE ×2 (17:04→17:35)
[2018-10-02 17:17] LABS: Urine RBC NONE SEEN /HPF (NONE SEEN)
[2018-10-02 17:18] LABS: Urine Bacteria 20-50 /HPF (NONE SEEN); Urine Culture Reflex Order REFLEXED
[2018-10-02 17:25] LABS: Urine Blood NEGATIVE (NEG); Urine Glucose NEGATIVE (NEG); Urine Protein NEGATIVE (NEG); Urine pH 5.5 (5.0-7.0)
[2018-10-02 17:26] LABS: Barbiturates NEGATIVE (NEGATIVE); Benzodiazepines NEGATIVE (NEGATIVE); Cocaine NEGATIVE (NEGATIVE); METHAMPHETAM NEGATIVE (NEGATIVE); Methadone NEGATIVE (NEGATIVE); Opiates NEGATIVE (NEGATIVE); Phencyclidine NEGATIVE (NEGATIVE)
[2018-10-02 17:27] LABS: THC Cannibis POSITIVE (NEGATIVE)
[2018-10-02] MEDS ORDERED: ALBUMIN HUMAN 25% 100 ML IV ONE (17:32)
--- NOTE | 2018-10-02 17:48 | EDPHYS ---
Physician Documentation [facility] Name: Abhishek Davis Age: 53 yrs Sex: Male : 1965 Arrival Date: 10/02/2018 Time: 15:23 Bed 2 Private MD: ED Physician Santhosh Horne HPI: 10/02 15:52 This 53 yrs old Male presents to ER via Stretcher with complaints of General cp Weakness. 15:52 The patient's problem is reported as weakness, that is generalized. cp 15:53 Onset: The symptoms/episode began/occurred 2-3 days ago. cp 15:53 Duration: The episode is continuous. cp 15:53 Patient referred to Ed by DR Torre after having paracentesis performed today in which cp 7-8 liters of fluid was removed. 15:53 Associated signs and symptoms: Pertinent negatives: abdominal pain, chest pain, cp headache, vomiting, fever. Patient's baseline: Neuro: alert and fully oriented, Motor: no deficits, Ambulation: walks without assistance, Speech: normal. Historical: - Allergies: 15:29 No Known Allergies; jl7 - PMHx: 15:29 Anemia; Cirrhosis; renal insufficiency; Umbilical hernia; jl7 - Immunization history:: Adult Immunizations unknown. - Social history:: Smoking status: unknown. - Ebola Screening: : No symptoms or risks identified at this time. ROS: 16:00 Cardiovascular: Negative for chest pain, edema, palpitations. cp 16:00 Eyes: Negative for injury, pain, redness, and discharge. cp 16:00 Constitutional: Negative for body aches, chills, fever, poor PO intake. 16:00 ENT: Negative for drainage from ear(s), ear pain, sore throat, difficulty swallowing, difficulty handling secretions. 16:00 Respiratory: Negative for cough, shortness of breath, wheezing. 16:00 Abdomen/GI: Negative for abdominal pain, nausea, vomiting, and diarrhea, black/tarry stool, rectal bleeding. 16:00 Back: Negative for pain at rest, pain with movement. 16:00 Skin: Negative for cellulitis, rash. 16:00 Neuro: Positive for general weakness, Negative for altered mental status, dizziness, headache, syncope. 16:00 All other systems are negative. Exam: 16:05 Constitutional: The patient appears in no acute distress, alert, awake, cp non-diaphoretic, non-toxic, well developed, frail. 16:05 Head/Face: Normocephalic, atraumatic. Eyes: Pupils equal round and reactive to light, cp extra-ocular motions intact. Lids and lashes normal. Conjunctiva and sclera are non-icteric and not injected. Cornea within normal limits. Periorbital areas with no swelling, redness, or edema. ENT: Nares patent. No nasal discharge, no septal abnormalities noted. Tympanic membranes are normal and external auditory canals are clear. Oropharynx with no redness, swelling, or masses, exudates, or evidence of obstruction, uvula midline. Mucous membranes moist. Neck: Trachea midline, no thyromegaly or masses palpated, and no cervical lymphadenopathy. Supple, full range of motion without nuchal rigidity, or vertebral point tenderness. No Meningismus. Chest/axilla: Normal chest wall appearance and motion. Nontender with no deformity. No lesions are appreciated. 16:05 Cardiovascular: Rate: normal, Rhythm: regular, Edema: is not appreciated, JVD: is not appreciated. 16:05 Respiratory: the patient does not display signs of respiratory distress, Respirations: normal, no use of accessory muscles, no retractions, no splinting, no tachypnea, labored breathing, is not present, Breath sounds: are clear throughout, no decreased breath sounds, no stridor, no wheezing. 16:05 Abdomen/GI: Inspection: distension, that is mild, Bowel sounds: active, all quadrants, Palpation: abdomen is soft and non-tender, in all quadrants, rebound tenderness, is not appreciated, voluntary guarding, is not appreciated, involuntary guarding, is not appreciated. 16:05 Back: ROM is normal. 16:05 Skin: Appearance: Color: jaundiced, cellulitis, is not appreciated, no rash present. 16:05 Neuro: Orientation: to person, place \T\ time. Mentation: slow to respond, Cerebellar function: is grossly normal, Motor: moves all fours, no focal deficits noted, Sensation: is normal. 17:22 Radiologist reports: no acute findings cp Vital Signs: 15:29 BP 96 / 74; Pulse 76; Resp 14 S; Temp 98.6(O); Pulse Ox 99% on R/A; Pain 8/10; jl7 16:30 BP 91 / 73; Pulse 75; Resp 14 S; Pulse Ox 98% on R/A; jl7 17:04 BP 93 / 74; Pulse 75; Resp 14; Pulse Ox 100% ; jl7 18:10 BP 95 / 71; Pulse 76; Resp 10; Pulse Ox 100% on R/A; mh5 19:10 BP 96 / 71; Pulse 72; Resp 16; Temp 97.8; Pulse Ox 98% ; rr5 19:45 BP 90 / 71; Pulse 75; Resp 17; Pulse Ox 98% on R/A; rr5 20:05 BP 93 / 69; Pulse 76; Resp 17; Pulse Ox 98% on R/A; rr5 NIH Stroke Scale Scores: 16:05 NIHSS Score: 0 cp MDM: 15:37 Patient medically screened. cp 16:00 Differential diagnosis: CVA, TIA, metabolic disorder, drug effects, sepsis. cp 17:30 Physician consultation: Connie Davis MD was called at 17:30, was contacted at 17:30, cp regarding admission, to the telemetry unit. patient's condition. 17:30 Data reviewed: vital signs, nurses notes, lab test result(s), radiologic studies, CT cp scan, and as a result, I will admit patient. 17:30 Response to treatment: the patient's symptoms have mildly improved after treatment. 10/02 15:47 Order name: Basic Metabolic Panel; Complete Time: 17:19 cp 10/02 17:19 Interpretation: Normal except: NA 128; CL 94; GLUC 156; BUN 47; CRE 1.80; GFR 40; CA cp 8.3. 10/02 15:47 Order name: CBC with Diff; Complete Time: 17:19 cp 10/02 16:27 Interpretation: Normal except: WBC 3.6; RBC 2.47; HGB 8.1; HCT 23.1; PLT 80; RDW 17.5; cp MPV 7.4; MN% 18.7; EOSINOPHIL % 8.4; LYMA 0.6. 10/02 15:47 Order name: LFT's; Complete Time: 17:19 cp 10/02 17:20 Interpretation: Normal except: ALK 203; BILIT 2.4; BILID 1.5; TP 5.5; ALB 3.1. cp 10/02 15:47 Order name: Magnesium; Complete Time: 17:19 cp 10/02 15:47 Order name: NT PRO-BNP; Complete Time: 17:19 10/02 15:47 Order name: PT-INR; Complete Time: 16:27 10/02 15:47 Order name: Troponin (emerg Dept Use Only); Complete Time: 17:19 10/02 15:47 Order name: Blood Culture Adult (2) cp 10/02 15:47 Order name: Lactate; Complete Time: 17:19 10/02 15:47 Order name: Procalcitonin; Complete Time: 17:19 10/02 17:21 Interpretation: Procalcitonin 0.09; Reviewed. 10/02 15:47 Order name: Urine Microscopic Only; Complete Time: 17:20 10/02 17:20 Interpretation: Normal except: UBACT 20-50. 10/02 15:54 Order name: UDS; Complete Time: 17:29 10/02 16:22 Order name: Manual Differential; Complete Time: 17:19 EDPR 10/02 17:06 Order name: Urine Dipstick--Ancillary (enter results); Complete Time: 17:28 10/02 15:47 Order name: XRAY Chest (1 view); Complete Time: 17:19 10/02 17:21 Interpretation: Report review. 10/02 15:47 Order name: CT Head Brain wo Cont; Complete Time: 17:19 10/02 17:21 Order name: Urine Culture EDMS 10/02 17:33 Order name: CBC with Automated Diff EDMS 10/02 17:33 Order name: CBC with Automated Diff EDMS 10/02 17:33 Order name: CBC with Automated Diff EDMS 10/02 17:33 Order name: CBC with Automated Diff EDMS 10/02 17:33 Order name: CBC with Automated Diff EDMS 10/02 17:33 Order name: Comprehensive Metabolic Panel EDMS 10/02 17:33 Order name: Comprehensive Metabolic Panel EDMS 10/02 17:33 Order name: Comprehensive Metabolic Panel EDMS 10/02 17:33 Order name: Comprehensive Metabolic Panel EDMS 10/02 17:33 Order name: Comprehensive Metabolic Panel EDMS 10/02 15:47 Order name: EKG; Complete Time: 15:48 10/02 15:47 Order name: Cardiac monitoring; Complete Time: 16:04 10/02 15:47 Order name: EKG - Nurse/Tech; Complete Time: 16:04 10/02 15:47 Order name: IV Saline Lock; Complete Time: 16:04 10/02 15:47 Order name: Labs collected and sent; Complete Time: 16:04 10/02 15:47 Order name: O2 Per Protocol; Complete Time: 16:04 10/02 15:47 Order name: O2 Sat Monitoring; Complete Time: 16:04 10/02 15:47 Order name: Urine Dipstick-Ancillary (obtain specimen); Complete Time: 17:01 10/02 17:33 Order name: NPO EDMS Administered Medications: 17:01 Drug: NS 0.9% 500 ml Route: IV; Rate: bolus; Site: left antecubital; jl7 17:33 Drug: NS 0.9% 500 ml Route: IV; Rate: bolus; Site: left antecubital; jl7 19:55 Drug: NS 0.9% 1000 ml Route: IV; Rate: 75 ml/hr; Site: left antecubital; rr5 20:05 Follow up: IV Status: Infusion continued upon admission rr5 Disposition: 10/03 00:11 Co-signature as Attending Physician, Santhosh Horne MD I agree with the assessment and kdr plan of care. Disposition: 10/02/18 17:47 Hospitalization ordered by Connie Davis for Observation. Preliminary diagnosis are Hypotension, Weakness - General. - Bed requested for Telemetry/MedSurg (observation). - Status is Observation. rr5 - Condition is Stable. - Problem is new. - Symptoms have improved. UTI on Admission? No NIH Stroke Scale - NIH Stroke Score Date: 10/02/2018 Time: 16:05 Total Score = 0 1a. Level of Consciousness (LOC) - 0(Alert) 1b. Level of Consciousness (LOC) (Year \T\ Age) - 0(Both) 1c. LOC Commands (Open \T\ Closes Eyes/[place]) - 0(Both) 2. Best Gaze (Lateral Gaze Paresis) - 0(Normal) 3. Visual Field Loss - 0(No visual loss) 4. Facial Palsy - 0(Normal) 5a. Left Arm: Motor (10-second hold) - 0(No drift) 5b. Right Arm: Motor (10-second hold) - 0(No drift) 6a. Left Leg: Motor (5-second hold - always test supine) - 0(No drift) 6b. Right Leg: Motor (5-second hold - always test supine) - 0(No drift) 7. Limb Ataxia (finger/nose \T\ heel/shelley - test with eyes open) - 0(Absent) 8. Sensory Loss (pinprick arms/legs/face) - 0(Normal) 9. Best Language: Aphasia (description/naming/reading) - 0(No aphasia) 10. Dysarthria (speech clarity - read or repeat words) - 0(Normal) 11. Extinction and Inattention (visual/tactile/auditory/spatial/personal) - 0(No abnormality) Initials: cp Signatures: Dispatcher [employer] Margareth Miller RN RN dw Santhosh Horne MD MD kdr Stanislaw Matias PA PA cp Baldemar Hamilton RN RN jl7 Berry Juarez RN RN rr5 Corrections: (The following items were deleted from the chart) 10/02 15:53 15:52 Onset: The symptoms/episode began/occurred cp cp 17:19 17:19 Normal except: NA 128; CL 94; GLUC 156; BUN 47; CRE 1.80; GFR 40. cp cp 18:36 17:47 Hospitalization Ordered by Connie Davis MD for Observation. Preliminary dw diagnosis is Hypotension; Weakness - General. Bed requested for Telemetry/MedSurg (observation). Status is Observation. Condition is Stable. Problem is new. Symptoms have improved. UTI on Admission? No. cp 20:12 18:36 10/02/2018 17:47 Hospitalization Ordered by Connie Davis MD for rr5 Observation. Preliminary diagnosis is Hypotension; Weakness - General. Bed requested for Telemetry/MedSurg (observation). Status is Observation. Condition is Stable. Problem is new. Symptoms have improved. UTI on Admission? No. dw
--- NOTE | 2018-10-02 17:48 | ER ---
Nurse's Notes [facility] Name: Abhishek Davis Age: 53 yrs Sex: Male : 1965 Arrival Date: 10/02/2018 Time: 15:23 Bed 2 Private MD: Diagnosis: Hypotension;Weakness-General Presentation: 10/02 15:23 Presenting complaint: Melina RN states "He was here for a paracentesis and c/o jl7 increased weakness; Dr. Torre instructed to draw a CBC and basic then send for paracentesis. Removed 7000cc, c/o back pain 08/05, reported to Dr. Torre and instructed to transport pt to ER for evaluation.". Transition of care: Day Surgery. Onset of symptoms was October 02, 2018. Risk Assessment: Do you want to hurt yourself or someone else? Patient reports no desire to harm self or others. Care prior to arrival: None. 15:23 Method Of Arrival: Stretcher jl7 15:23 Acuity: KACEY 2 jl7 20:11 Initial Sepsis Screen: Does the patient meet any 2 criteria? No. Patient's initial rr5 sepsis screen is negative. Does the patient have a suspected source of infection? No. Patient's initial sepsis screen is negative. Historical: - Allergies: 15:29 No Known Allergies; jl7 - PMHx: 15:29 Anemia; Cirrhosis; renal insufficiency; Umbilical hernia; jl7 - Immunization history:: Adult Immunizations unknown. - Social history:: Smoking status: unknown. - Ebola Screening: : No symptoms or risks identified at this time. Screenin:30 Abuse screen: Denies threats or abuse. Denies injuries from another. Nutritional jl7 screening: No deficits noted. Tuberculosis screening: No symptoms or risk factors identified. Fall Risk IV access (20 points). Total Ty Fall Scale indicates No Risk (0-24 pts). Assessment: 15:30 General: Appears in no apparent distress. uncomfortable, Behavior is calm, cooperative, jl7 appropriate for age. Pain: Complains of pain in "All over." Pain currently is 8 out of 10 on a pain scale. Neuro: Level of Consciousness is awake, alert, obeys commands, Oriented to person, place, time, situation. Cardiovascular: Heart tones present Patient's skin is warm and dry. Respiratory: Airway is patent Respiratory effort is even, unlabored, shallow, Respiratory pattern is regular, symmetrical. GI: No signs and/or symptoms were reported involving the gastrointestinal system. : No signs and/or symptoms were reported regarding the genitourinary system. EENT: No signs and/or symptoms were reported regarding the EENT system. Derm: Skin is dry, Skin is pale, Skin temperature is warm. Musculoskeletal: No signs and/or symptoms reported regarding the musculoskeletal system. 16:30 Reassessment: Patient appears in no apparent distress at this time. No changes from jl7 previously documented assessment. Patient and/or family updated on plan of care and expected duration. Pain level reassessed. Patient is alert, oriented x 3, equal unlabored respirations, skin warm/dry/pink. 19:05 General: Appears in no apparent distress. comfortable, Behavior is calm, cooperative, rr5 appropriate for age. 19:05 Pain: Denies pain. Neuro: Level of Consciousness is awake, alert, obeys commands, rr5 Oriented to person, place, time, situation. Cardiovascular: Heart tones S1 S2 present Capillary refill < 3 seconds Patient's skin is warm and dry. Respiratory: Airway is patent Respiratory effort is even, unlabored, Respiratory pattern is regular, symmetrical. GI: Abdomen is round post paracentesis. wound dressing applied at right mid quadrant area dry and intact. : No signs and/or symptoms were reported regarding the genitourinary system. EENT: No signs and/or symptoms were reported regarding the EENT system. Derm: Skin is dry, Skin is pale, Skin temperature is warm. Musculoskeletal: No signs and/or symptoms reported regarding the musculoskeletal system. 19:05 GI: protrude umbilicus noted. rr5 19:50 Reassessment: Trendelenburg position done for the BP 90/71. page PA informed with order rr5 made and carried out. 20:05 Reassessment: Patient appears in no apparent distress at this time. rechecked BP rr5 93/69mmHG. no complaints made. Vital Signs: 15:29 BP 96 / 74; Pulse 76; Resp 14 S; Temp 98.6(O); Pulse Ox 99% on R/A; Pain 8/10; jl7 16:30 BP 91 / 73; Pulse 75; Resp 14 S; Pulse Ox 98% on R/A; jl7 17:04 BP 93 / 74; Pulse 75; Resp 14; Pulse Ox 100% ; jl7 18:10 BP 95 / 71; Pulse 76; Resp 10; Pulse Ox 100% on R/A; mh5 19:10 BP 96 / 71; Pulse 72; Resp 16; Temp 97.8; Pulse Ox 98% ; rr5 19:45 BP 90 / 71; Pulse 75; Resp 17; Pulse Ox 98% on R/A; rr5 20:05 BP 93 / 69; Pulse 76; Resp 17; Pulse Ox 98% on R/A; rr5 NIH Stroke Scale Scores: 16:05 NIHSS Score: 0 cp ED Course: 15:23 Patient arrived in ED. jl7 15:28 Triage completed. jl7 15:29 Arm band placed on right wrist. jl7 15:30 Patient has correct armband on for positive identification. Placed in gown. Bed in low jl7 position. Call light in reach. Side rails up X2. business editor on. Pulse ox on. NIBP on. Warm blanket given. 15:30 Maintain EMS IV. Dressing intact. Good blood return noted. Site clean \\T\\ dry. Gauge \\T\\ jl 7 site: 20 Left AC. Inserted by Day Surgery. 15:37 Stanislaw Matias PA is PHCP. cp 15:37 Santhosh Horne MD is Attending Physician. cp 15:57 Baldemar Hamilton, NIYA is Primary Nurse. jl7 16:04 EKG done, by records technician. reviewed by Stanislaw RONQUILLO. dt2 16:11 CT completed. Patient moved to CT. Patient moved back from CT. kc3 16:13 X-ray completed. Portable x-ray completed in exam room. Patient tolerated procedure ls3 well. 16:17 XRAY Chest (1 view) In Process Unspecified. EDMS 16:17 CT Head Brain wo Cont In Process Unspecified. EDMS 16:51 UDS Sent. mh5 16:51 Urine Microscopic Only Sent. mh5 16:52 Urine collected: clean catch specimen, tea colored. mh5 17:46 Connie Davis MD is Hospitalizing Provider. cp 20:09 No provider procedures requiring assistance completed. Patient admitted, IV remains in rr5 place. intact. Administered Medications: 17:01 Drug: NS 0.9% 500 ml Route: IV; Rate: bolus; Site: left antecubital; 7 17:33 Drug: NS 0.9% 500 ml Route: IV; Rate: bolus; Site: left antecubital; 7 19:55 Drug: NS 0.9% 1000 ml Route: IV; Rate: 75 ml/hr; Site: left antecubital; 5 20:05 Follow up: IV Status: Infusion continued upon admission 5 Outcome: 17:47 Decision to Hospitalize by Provider. cp 20:05 Admitted to Med/surg accompanied by nurse, via stretcher, with chart, Report called to [facility] 20:05 Condition: stable 20:05 Instructed on the need for admit. rr5 20:12 Patient left the ED. 5 NIH Stroke Scale - NIH Stroke Score Date: 10/02/2018 Time: 16:05 Total Score = 0 1a. Level of Consciousness (LOC) - 0(Alert) 1b. Level of Consciousness (LOC) (Year \\T\\ Age) - 0(Both) 1c. LOC Commands (Open \\T\\ Closes Eyes/Public Health Service Officer) - 0(Both) 2. Best Gaze (Lateral Gaze Paresis) - 0(Normal) 3. Visual Field Loss - 0(No visual loss) 4. Facial Palsy - 0(Normal) 5a. Left Arm: Motor (10-second hold) - 0(No drift) 5b. Right Arm: Motor (10-second hold) - 0(No drift) 6a. Left Leg: Motor (5-second hold - always test supine) - 0(No drift) 6b. Right Leg: Motor (5-second hold - always test supine) - 0(No drift) 7. Limb Ataxia (finger/nose \\T\\ heel/shelley - test with eyes open) - 0(Absent) 8. Sensory Loss (pinprick arms/legs/face) - 0(Normal) 9. Best Language: Aphasia (description/naming/reading) - 0(No aphasia) 10. Dysarthria (speech clarity - read or repeat words) - 0(Normal) 11. Extinction and Inattention (visual/tactile/auditory/spatial/personal) - 0(No abnormality) Initials: cp Signatures: Dispatcher [employer] EDKY Stanislaw Matias PA PA cp Martinez, Maria 5 Baldemar Hamilton RN RN jl7 Stephanie Rodriguez3 Justina Caldera2 Oli Lee ls3 Berry Juarez, RN RN rr5
[2018-10-02] MEDS ORDERED: NA CHLORIDE 0.9% 1,000 ML ONE (20:10)
[2018-10-02 20:38] VITALS: BMI 17.7
[2018-10-02] MEDS ORDERED: MORPHINE 4 MG/ML SYR IV PRN (21:04)
[2018-10-03 05:28] LABS: Absolute Lymphocytes (CBC) 0.3 K/uL (0.7-4.9); Absolute Monocytes 0.5 K/uL (0.1-1.3); Absolute Neutrophil 1.9 K/uL (1.8-8.0); Basophils % 0.2 % (0-1.3); Eosinophils % 9.7 % (0-4.4); Hematocrit 21.7 % (39.6-49.0); Lymphocytes % 11.3 % (15.3-44.8); MCH 33.2 pg (27.0-35.0); MCV 92.8 fL (80-100); Monocytes % 15.1 % (3.3-12.3); RBC Red Blood Cell Count 2.34 M/uL (4.33-5.43)
[2018-10-03 05:48] LABS: Albumin 2.6 g/dL (3.4-5.0); Bilirubin Total 2.4 mg/dL (0.2-1.0); Potassium 4.3 mmol/L (3.5-5.1)
--- NOTE | 2018-10-03 06:02 | P.HP ---
Certification for Inpatient Patient admitted to: Inpatient With expected LOS: >2 Midnights Patient will require the following post-hospital care: None Practitioner: I am a practitioner with admitting privileges, knowledge of patient current condition, hospital course, and medical plan of care. Services: Services provided to patient in accordance with Admission requirements found in Title 42 Section 412.3 of the Code of Federal Regulations Patient History Date of Service: 10/02/18 Reason for admission: Generalized weakness/ history of alcoholic liver cirrhosis /acute kidney History of Present Illness: Patient is a 53-year-old was admitted to the hospital with generalized weakness. Patient has a history of nephropathy and alcoholic liver disease. Patient's renal function has been worsening patient with uremia. Patient also has alcoholic liver disease. Patient's bilirubin is elevated. Patient came into the hospital because he was lethargic and not feeling like himself. He states he is doing better since being in the hospital. However, he is anemic and his liver and renal indices are significantly abnormal. Will need to be admitted to the hospital for further workup. Recheck labs in the morning. Gently hydrated. Monitor H&H closely. Allergies No Known Drug Allergies Allergy (Verified 07/06/18 10:35) Unknown Home Medications: Diphenhydramine [Benadryl*] 25 mg PO Q6H PRN #30 tab 10/09/17 Lactulose 30 ml PO TID #500 ml 11/20/17 Rifaximin [Xifaxan] 550 mg PO BID #60 tablet 11/20/17 Midodrine HCl 10 mg PO TID 02/14/18 Multivitamin/Iron/Folic Acid [Centrum Adults Tablet] 1 tab PO DAILY 02/14/18 Ondansetron HCl [Zofran] 4 mg PO Q8HP PRN 02/14/18 Ursodiol 2 cap PO TID 02/14/18 Lidocaine 5% Patch [Lidoderm 5% Patch*] 1 patch TOP DAILY #30 patch 09/23/18 Pantoprazole [Protonix Tab] 40 mg PO DAILY #30 tab 09/23/18 traMADol HCL [Ultram*] 50 mg PO Q6H PRN #30 tab 09/23/18 Hydroxyzine HCl [Atarax] 10 mg BID PRN 10/02/18 - Past Medical/Surgical History Has patient received pneumonia vaccine in the past: No Diabetic: No -: kidney insufficiency -: liver cirrhosis -: anemia -: jaundice -: alchohol withdrawal -: left wrist sx to remove cyst -: hernia repair -: sx on left lower leg - Family History Mother Medical History: GI disease, Liver disease Notes: mother because of cirrhosis Father Medical History: Diabetes - Social History Smoking Status: Never smoker Alcohol use: No CD- Drugs: No Caffeine use: Yes Place of Residence: Home Review of Systems 10-point ROS is otherwise unremarkable Physical Examination - Vital Signs Temperature: 99.5 F Blood Pressure: 109/59 Pulse: 84 Respirations: 16 Pulse Ox (%): 96 - Physical Exam General: Alert, In no apparent distress, Oriented x2 HEENT: Atraumatic, PERRLA, Mucous membr. moist/pink, EOMI, Sclerae nonicteric Neck: Supple, 2+ carotid pulse no bruit, No LAD, Without JVD or thyroid abnormality Respiratory: Clear to auscultation bilaterally, Normal air movement Cardiovascular: Regular rate/rhythm, Normal S1 S2, Systolic murmur Gastrointestinal: Normal bowel sounds, Soft and benign, No rebound, No guarding , Distended, Tenderness Musculoskeletal: No clubbing, No swelling, No tenderness Integumentary: No rashes Neurological: Normal speech, Normal tone, Sensation intact, Cranial nerves 3-12 intact, Normal affect, Abnormal gait, Abnormal strength Lymphatics: No axilla or inguinal lymphadenopathy - Studies Laboratory Data (last 24 hrs) 10/02/18 16:05: PT 20.4 H, INR 1.72 10/02/18 16:05: WBC 3.6 L D, Hgb 8.1 L, Hct 23.1 L, Plt Count 80 L D 10/02/18 16:05: Sodium 128 L, Potassium 4.0, BUN 47 H, Creatinine 1.80 H, Glucose 156 H, Magnesium 2.7 H D, Total Bilirubin 2.4 H, AST 18, ALT 14, Alkaline Phosphatase 203 H Assessment & Plan - Problems (Diagnosis) (1) Generalized weakness Onset Date: 09/24/17 Current Visit: No Status: Acute (2) Hepatic encephalopathy Onset Date: 12/11/17 Current Visit: No Status: Acute (3) Weakness generalized Onset Date: 12/11/17 Current Visit: No Status: Acute (4) Alcohol abuse Onset Date: 06/13/17 Current Visit: No Status: Chronic (5) Cirrhosis Onset Date: 11/26/17 Current Visit: No Status: Chronic Qualifiers: Hepatic cirrhosis type: alcoholic cirrhosis Ascites presence: with ascites Qualified Code(s): K70.31 - Alcoholic cirrhosis of liver with ascites (6) Cirrhosis of liver Onset Date: 03/23/15 Current Visit: No Status: Chronic (7) GERD (gastroesophageal reflux disease) Onset Date: 06/13/17 Current Visit: No Status: Chronic Qualifiers: Esophagitis presence: esophagitis presence not specified Qualified Code(s) : K21.9 - Gastro-esophageal reflux disease without esophagitis (8) POLLY (acute kidney injury) Current Visit: No Status: Resolved (9) Acute blood loss anemia Current Visit: No Status: Resolved (10) Esophagitis, acute Current Visit: No Status: Resolved (11) Weakness of left lower extremity Onset Date: 01/08/16 Current Visit: No Status: Resolved - Plan Plan: 1. Continue with gentle IV hydration and PPI 2. PT eval 3. Continue with pain control 4. Strict I's and O's 5. GI consultation if any signs of acute bleeding 6. Monitor LFTs and lipase along with electrolytes and serial H&H. 7. GI and DVT prophylaxis Discharge Plan: Home Plan to discharge in: 48 Hours - Advance Directives Does patient have a Living Will: No Does patient have a Durable POA for Healthcare: No - Code Status/Comfort Care Code Status Assessed: Yes Code Status: Full Code Critical Care: No Time Spent Managing PTS Care (In Minutes): 50
[2018-10-03] MEDS ORDERED: NA CHLORIDE 0.9% 250 ML ONE ×2 (09:01→15:11)
[2018-10-03] MEDS: TRAMADOL HCL 50 MG TAB PO PRN ×2 (11:54→20:05)
[2018-10-03] MEDS ORDERED: DIPHENHYDRAMINE 25 MG TAB/CAP PO PRN (13:01)
--- NOTE | 2018-10-03 13:11 | P.PN ---
Subjective Date of Service: 10/03/18 Chief Complaint: Generalize weakness Subjective: No new changes, No C/O voiced, Improving Patient seen and examined at bedside. No family at bedside. Chart reviewed and case discussed with nursing staff. Review of Systems As noted Physical Examination - Vital Signs Temperature: 99.5 F Blood Pressure: 109/59 Pulse: 84 Respirations: 16 Pulse Ox (%): 96 - Physical Exam General: Alert, In no apparent distress, Oriented x3 HEENT: Atraumatic, PERRLA, EOMI Neck: Supple, JVD not distended Respiratory: Clear to auscultation bilaterally, Normal air movement Cardiovascular: Regular rate/rhythm, Normal S1 S2 Gastrointestinal: Normal bowel sounds, Other (Hernia noted), Hepatomegaly, Ascites Musculoskeletal: No tenderness Integumentary: No rashes Neurological: Normal speech, Normal tone, Normal affect Lymphatics: No axilla or inguinal lymphadenopathy - Studies Laboratory Data (last 24 hrs) 10/02/18 16:05: PT 20.4 H, INR 1.72 10/02/18 16:05: WBC 3.6 L D, Hgb 8.1 L, Hct 23.1 L, Plt Count 80 L D 10/02/18 16:05: Sodium 128 L, Potassium 4.0, BUN 47 H, Creatinine 1.80 H, Glucose 156 H, Magnesium 2.7 H D, Total Bilirubin 2.4 H, AST 18, ALT 14, Alkaline Phosphatase 203 H Assessment And Plan - Plan Impression: Significant ascites secondary to alcoholic cirrhosis currently on liver transplant list, status post paracentesis Anemia chronic disease. Thrombocytopenia likely related to cirrhosis Hypernatremia Chronic renal disease stage III Depression Hypotension, on midodrine Patient is status post paracentesis yesterday. Ascites improved. He did receive IV albumin in the ER. Currently receiving 2 units PRBCs. Will continue to monitor, have physical therapy work with patient on ambulation. He will need to continue his home health with physical therapy services at discharge. He will also need outpatient GI followup. He will likely require further paracentesis, which she can continue doing as he has been outpatient. We will continue his home medications of lactulose, Flax amine, midodrine. Will continue to monitor vital signs. Monitor with labs in the morning. Likely discharge in the next 24-48 hr. Physician Review: Patient Assessed, Agree with Above Assessment and Plan Time Spent Managing PTS Care (In Minutes): 45
[2018-10-03] MEDS ORDERED: PANTOPRAZOLE 40MG TABLET PO ONE (13:13)
[2018-10-03] MEDS: LACTULOSE 20 GM/30 ML UCUP PO SCH ×2 (15:22→20:04)
[2018-10-03] MEDS: URSODIOL 300 MG CAP PO SCH ×2 (15:23→20:04)
[2018-10-03] MEDS: MIDODRINE HCL 5 MG TABLET PO SCH ×2 (15:23→20:04)
[2018-10-03] MEDS: PANTOPRAZOLE 40MG TABLET PO SCH (20:05)
[2018-10-03] MEDS: Rifaximin 550 MG Tab PO SCH (20:06)
[2018-10-03 21:28] LABS: Hematocrit 28.9 % (39.6-49.0)
[2018-10-04 05:11] LABS: Absolute Lymphocytes (CBC) 0.5 K/uL (0.7-4.9); Absolute Monocytes 0.8 K/uL (0.1-1.3); Absolute Neutrophil 2.8 K/uL (1.8-8.0); Basophils % 0.3 % (0-1.3); Eosinophils % 7.1 % (0-4.4); Hematocrit 28.5 % (39.6-49.0); Lymphocytes % 11.8 % (15.3-44.8); MCH 32.5 pg (27.0-35.0); MCV 90.7 fL (80-100); RBC Red Blood Cell Count 3.14 M/uL (4.33-5.43)
[2018-10-04 05:21] LABS: Monocytes % 18.2 % (3.3-12.3)
[2018-10-04 05:23] LABS: Albumin 2.6 g/dL (3.4-5.0); Bilirubin Total 4.1 mg/dL (0.2-1.0); Potassium 4.3 mmol/L (3.5-5.1)
[2018-10-04] MEDS: HYDROXYZINE HCL 10 MG/5 ML SYRUP UD PO PRN ×2 (07:13→20:15)
[2018-10-04] MEDS: TRAMADOL HCL 50 MG TAB PO PRN ×3 (07:13→20:15)
[2018-10-04] MEDS: Rifaximin 550 MG Tab PO SCH ×2 (09:00→20:16)
[2018-10-04] MEDS ORDERED: PANTOPRAZOLE 40MG TABLET PO SCH (09:00)
[2018-10-04] MEDS: PANTOPRAZOLE 40MG TABLET PO SCH ×2 (10:14→20:16)
[2018-10-04] MEDS: URSODIOL 300 MG CAP PO SCH ×3 (10:14→20:16)
[2018-10-04] MEDS: MIDODRINE HCL 5 MG TABLET PO SCH ×3 (10:14→20:15)
[2018-10-04] MEDS: LACTULOSE 20 GM/30 ML UCUP PO SCH ×3 (10:15→20:15)
[2018-10-04] MEDS: MULTIVITAMIN TAB PO SCH (10:15)
[2018-10-04] MEDS: LIDOCAINE 5% PATCH TOP SCH (10:15)
--- NOTE | 2018-10-04 11:52 | P.PN ---
Subjective Date of Service: 10/04/18 Chief Complaint: Generalized weakness/ history of alcoholic liver cirrhosis / acute kidney Subjective: No new changes, No C/O voiced Patient seen and examined at bedside. at bedside. Chart reviewed and case discussed with nursing staff. Review of Systems As noted Physical Examination - Vital Signs Temperature: 98.2 F Blood Pressure: 106/59 Pulse: 85 Respirations: 17 Pulse Ox (%): 97 - Physical Exam General: Alert, In no apparent distress, Oriented x3 HEENT: Atraumatic, PERRLA, EOMI Neck: Supple, JVD not distended Respiratory: Clear to auscultation bilaterally, Normal air movement Cardiovascular: Regular rate/rhythm, Normal S1 S2 Gastrointestinal: Normal bowel sounds, Other (Hernia noted), Ascites Musculoskeletal: No tenderness Integumentary: No rashes Neurological: Normal speech, Normal tone, Normal affect Lymphatics: No axilla or inguinal lymphadenopathy - Studies Microbiology Data (last 24 hrs): 10/02/18 16:46 Clean Catch Urine [place] Count - Final <10,000 CFU/ML. 10/02/18 16:46 Clean Catch Urine - Final Assessment And Plan - Plan Impression: Significant ascites secondary to alcoholic cirrhosis currently on liver transplant list, status post paracentesis Anemia chronic disease. Thrombocytopenia likely related to cirrhosis Hypernatremia Chronic renal disease stage III Depression Hypotension, on midodrine Patient is status post paracentesis, Ascites improved. He did receive IV albumin in the ER. Hemoglobin improved after 2 units PRBCs. Will continue to monitor, have physical therapy work with patient on ambulation. He will need to continue his home health with physical therapy services at discharge. He will also need outpatient GI followup. He will likely require further paracentesis, which he can continue doing as he has been outpatient. We will continue his home medications of lactulose, rifaxamine, midodrine. Will continue to monitor vital signs. Monitor with labs in the morning. Work with physical therapy, likely discharge tomorrow morning Physician Review: Patient Assessed, Agree with Above Assessment and Plan
[2018-10-04] MEDS: ENSURE HIGH PROTEIN 237 ML CAN PO SCH (20:14)
[2018-10-05] MEDS: TRAMADOL HCL 50 MG TAB PO PRN (03:35)
[2018-10-05 06:19] LABS: Absolute Lymphocytes (CBC) 0.8 K/uL (0.7-4.9); Absolute Neutrophil 3.6 K/uL (1.8-8.0); Basophils % 0.4 % (0-1.3); Eosinophils % 6.1 % (0-4.4); Hematocrit 29.5 % (39.6-49.0); Lymphocytes % 13.6 % (15.3-44.8); MCV 90.7 fL (80-100); MPV 7.1 fL (7.6-11.3); Monocytes % 16.7 % (3.3-12.3); RBC Red Blood Cell Count 3.25 M/uL (4.33-5.43)
[2018-10-05 06:35] LABS: Albumin 2.6 g/dL (3.4-5.0); Bilirubin Total 2.6 mg/dL (0.2-1.0); Magnesium 2.3 mg/dL (1.8-2.4); Potassium 4.8 mmol/L (3.5-5.1); Protein, Total 5.2 g/dL (6.4-8.2)
--- NOTE | 2018-10-05 07:17 | EKG ---
Test Date: 2018-10-02 Test Time: 15:35:46 Lease Broker: PERLA MEASUREMENT RESULTS: Intervals: Rate: 75 MO: 182 QRSD: 92 QT: 408 QTc: 455 [place]: P: 44 MO: 182 QRS: -1 T: 42 INTERPRETIVE STATEMENTS: Normal sinus rhythm Normal ECG Compared to ECG 09/22/2018 01:30:00 No significant changes Electronically Signed On 10-05-18 07:11:38 STEAM HOIST OPERATOR by Chris Ramos
[2018-10-05] MEDS: MULTIVITAMIN TAB PO SCH (09:25)
[2018-10-05] MEDS: ENSURE HIGH PROTEIN 237 ML CAN PO SCH (09:25)
[2018-10-05] MEDS: LACTULOSE 20 GM/30 ML UCUP PO SCH ×2 (09:25→14:47)
[2018-10-05] MEDS: LIDOCAINE 5% PATCH TOP SCH (09:25)
[2018-10-05] MEDS: URSODIOL 300 MG CAP PO SCH ×2 (09:27→14:47)
[2018-10-05] MEDS: PANTOPRAZOLE 40MG TABLET PO SCH (09:28)
[2018-10-05] MEDS: MIDODRINE HCL 5 MG TABLET PO SCH ×2 (09:28→14:47)
[2018-10-05] MEDS: Rifaximin 550 MG Tab PO SCH (09:37)
--- NOTE | 2018-10-05 14:50 | P.DS ---
Admission Date: 10/02/18 Discharge Date: 10/05/18 Disposition: ROUTINE DISCHARGE Discharge Condition: GOOD Reason for Admission: Generalized weakness/ history of alcoholic liver cirrhosis /acute kidney Brief History of Present Illness: Patient is a 53-year-old was admitted to the hospital with generalized weakness. Patient has a history of nephropathy and alcoholic liver disease. Patient's renal function has been worsening patient with uremia. Patient also has alcoholic liver disease. Patient's bilirubin is elevated. Patient came into the hospital because he was lethargic and not feeling like himself. He states he is doing better since being in the hospital. However, he is anemic and his liver and renal indices are significantly abnormal. Will need to be admitted to the hospital for further workup. Recheck labs in the morning. Gently hydrated. Monitor H&H closely. Hospital Course: Impression: Significant ascites secondary to alcoholic cirrhosis currently on liver transplant list, status post paracentesis Anemia chronic disease. Thrombocytopenia likely related to cirrhosis Hypernatremia Chronic renal disease stage III Depression Hypotension, on midodrine Patient is status post paracentesis, Ascites improved. He did receive IV albumin in the ER. Hemoglobin improved after 2 units PRBCs. Patient worked with physical therapy here. He will need to continue his home health with physical therapy services at discharge. He will also need outpatient GI followup. He will likely require further paracentesis, which he can continue doing as he has been outpatient. No changes made to his home medications of lactulose, rifaxamine, midodrine. Remained hemodynamically stable. Monitor with labs in the morning. Vital Signs/Physical Exam: Temp Pulse Resp BP Pulse Ox 97.5 F 85 16 98/64 97 10/05/18 12:00 10/05/18 12:00 10/05/18 12:00 10/05/18 12:10/05/18 12:00 General: Alert, In no apparent distress, Oriented x3 HEENT: Atraumatic, PERRLA, EOMI Neck: Supple, JVD not distended Respiratory: Clear to auscultation bilaterally, Normal air movement Cardiovascular: Regular rate/rhythm, Normal S1 S2 Gastrointestinal: Normal bowel sounds, No tenderness Musculoskeletal: No tenderness Integumentary: No rashes Neurological: Normal speech, Normal tone, Normal affect Laboratory Data at Discharge: WBC 5.7 K/uL (4.3-10.9) D 10/05/18 05:35 Hgb 10.4 g/dL (13.6-17.9) L 10/05/18 05:35 Hct 29.5 % (39.6-49.0) L 10/05/18 05:35 Plt Count 89 K/uL (152-406) L 10/05/18 05:35 PT 20.4 SECONDS (9.5-12.5) H 10/02/18 16:05 INR 1.72 10/02/18 16:05 Sodium 131 mmol/L (136-145) L 10/05/18 05:35 Potassium 4.8 mmol/L (3.5-5.1) 10/05/18 05:35 BUN 37 mg/dL (7-18) H 10/05/18 05:35 Creatinine 1.40 mg/dL (0.55-1.3) H 10/05/18 05:35 Glucose 88 mg/dL (74-106) 10/05/18 05:35 Phosphorus 4.0 mg/dL (2.5-4.9) 10/03/18 04:35 Magnesium 2.3 mg/dL (1.8-2.4) 10/05/18 05:35 Total Bilirubin 2.6 mg/dL (0.2-1.0) H 10/05/18 05:35 AST 21 U/L (15-37) 10/05/18 05:35 ALT 13 U/L (12-78) 10/05/18 05:35 Alkaline Phosphatase 218 U/L (45-117) H 10/05/18 05:35 Home Medications: Diphenhydramine [Benadryl*] 25 mg PO Q6H PRN #30 tab 10/09/17 Lactulose 30 ml PO TID #500 ml 11/20/17 Rifaximin [Xifaxan] 550 mg PO BID #60 tablet 11/20/17 Midodrine HCl 10 mg PO TID 02/14/18 Multivitamin/Iron/Folic Acid [Centrum Adults Tablet] 1 tab PO DAILY 02/14/18 Ondansetron HCl [Zofran] 4 mg PO Q8HP PRN 02/14/18 Ursodiol 2 cap PO TID 02/14/18 Lidocaine 5% Patch [Lidoderm 5% Patch*] 1 patch TOP DAILY #30 patch 09/23/18 Pantoprazole [Protonix Tab*] 40 mg PO DAILY #30 tab 09/23/18 traMADol HCL [Ultram*] 50 mg PO Q6H PRN #30 tab 09/23/18 Hydroxyzine HCl [Atarax] 10 mg BID PRN 10/02/18 Citalopram [Celexa*] 20 mg DAILY 10/03/18 Docusate [Colace Cap*] 100 mg PO BID cap 10/05/18 Ensure High Protein 240 ml PO BID can 10/05/18 Patient Discharge Instructions: 1. You will need a follow up with your primary care physician in 1 week to follow up this hospitalization. 2. You were admitted after a paracentesis for generalized weakness. He was given IV albumin when you 1st came in to the hospital. We would recommend that he follow up with her addiction treatment counselor in the next 1-2 weeks to follow up this hospitalization and continued care. We recommend he continue with the 1500 cc per day fluid restriction. Also continue to follow up with your outpatient paracentesis as has been scheduled by your primary care physician. No medication changes made during this stay. 3. Generalized weakness: As we discussed not this day, you need to be working with the physical therapy to get stronger. We recommend resuming the home health with physical therapy. 4. Anemia of chronic disease with thrombocytopenia: He were given 2 units of blood drawn throughout the stay and your hemoglobin levels have remained stable after the transfusion. We recommend to recheck your blood CBC in 1 week with the primary care physician. 5. Chronic renal disease, stage III: Continue with 2 fluid restriction of 1500 cc a day. We recommend to follow up with our circular knitter helper as an outpatient for further monitoring and evaluation. No other medication changes made to her regimen during this stay. Diet: Low sodium (Fluid restriction to 1500cc/day) Activity: Ad dell Physician Review: Patient Assessed, Agree with Above Assessment and Plan Time spent managing pt's care (in minutes): 55
[2018-10-05 16:48] VITALS: O2SAT 97
[2018-10-05 17:37] VITALS: TEMP 97.6
[2018-10-05 19:40] VITALS: BP 90/60
[2018-10-05] MEDS ORDERED: DOCUSATE NA 100 MG CAP PO SCH (21:00)
== END 2018-10-05 19:36 | disposition home health service (06) ==
LOC: ER 15:14 → ERHOLD 17:31 → INTOOBSV 17:31 → 2ND 19:58
PROVIDERS: ADMIT Family Medicine; ATTEND Hospitalist
PROC: 30233N1 Transfusion of Nonautologous Red Blood Cells into Peripheral Vein, Percutaneous Approach (ICD-10-PCS; principal; 2018-10-03)
DX: K70.31 Alcoholic cirrhosis of liver with ascites (principal); E87.0 Hyperosmolality and hypernatremia; D64.9 Anemia, unspecified; D69.6 Thrombocytopenia, unspecified; N18.3 Chronic kidney disease, stage 3 (moderate); F32.9 Major depressive disorder, single episode, unspecified; I95.9 Hypotension, unspecified
CPT/HCPCS: 36415; 36430; 49083; 70450; 71045; 80048; 80053; 80076; 80307; 81003; 81015; 83605; 83735; 83880; 84100; 84145; 84484; 85014; 85018; 85025; 85049; 85610; 85730; 86850; 86900; 86901; 87040; 87086; 87088; 93005; 94760; 96365; 97116; 97162; 97530; 99285; J7030; P9016; P9047

== ENCOUNTER → 2018-10-02 | Day surgery (SDC) | payer MEDICAID ==
[~2018-10-02] MED LIST changes: -ALBUMIN HUMAN 25% 100 ML IV ONE; +ALBUMIN HUMAN 25% 100 ML IV SCH; +HYDROCODONE/APAP 7.5/325 MG TAB ONE; -TRAMADOL HCL 50 MG TAB ONE
--- OUTSIDE RECORDS SUMMARY | 2018-10-02 10:16 | XMS REPORT ---
:1965 [facility] [place] [address] [place] [id number] Care Team Providers Name Role Phone INGRID [...] Value Reference Range Comments CULTURE (BEAKER) (test mued=9367) No growth GRAM STAIN RESULT (BEAKER) (test iggc=4973) No WBCs GRAM STAIN RESULT (BEAKER) (test sysk=51714) No organisms seen POCT-GLUCOSE [id number] 07:52:00 Test Item Value Reference Range Comments POC-GLUCOSE METER (BEAKER) 115 mg/dL 70-110 TESTED AT [facility] [address] [place] [address] (test qbbi=4278) [facility] [address] [id number] 05:18:00 Test Item Value Reference Range Comments MAGNESIUM (BEAKER) (test nxpz=389) 1.9 mg/dL 1.6-2.6 COMPREHENSIVE METABOLIC [id number] 05:18:00 Test Item Value Reference Range Comments TOTAL PROTEIN (BEAKER) 5.2 gm/dL 6.0-8.3 (test asco=076) ALBUMIN (BEAKER) (test 3.4 g/dL 3.5-5.0 xgfp=3885) ALKALINE PHOSPHATASE 113 U/L 40-150 (BEAKER) (test zjve=515) BILIRUBIN TOTAL (BEAKER) 2.9 mg/dL 0.2-1.2 (test hirw=737) SODIUM (BEAKER) (test 131 meq/L 136-145 psyv=463) POTASSIUM (BEAKER) (test 4.0 meq/L 3.5-5.1 vlic=394) CHLORIDE (BEAKER) (test 101 meq/L 98-107 onaw=402) CO2 (BEAKER) (test 21 meq/L 22-29 cwwz=180) BLOOD UREA NITROGEN 28 mg/dL 7-21 (BEAKER) (test sbmq=469) CREATININE (BEAKER) (test 1.65 mg/dL 0.57-1.25 giuh=386) GLUCOSE RANDOM (BEAKER) 122 mg/dL 70-105 (test wihx=568) CALCIUM (BEAKER) (test 9.3 mg/dL 8.4-10.2 wocp=215) AST (SGOT) (BEAKER) (test 15 U/L 5-34 wiut=897) ALT (SGPT) (BEAKER) (test 8 U/L 6-55 kzkr=906) EGFR (BEAKER) (test 44 mL/min/1.73 sq m ESTIMATED GFR IS NOT krld=9668) ACCURATE CREATININE CLEARANCE IN PREDICTING GLOMERULAR FILTRATION RATE. ESTIMATED GFR IS NOT APPLICABLE FOR DIALYSIS PATIENTS. Specimen slightly ictericPROTHROMBIN [id number] 04:48:00 Test Item Value Reference Range Comments PROTIME (BEAKER) (test mcpx=556) 20.9 seconds 11.7-14.7 INR (BEAKER) (test nhtf=692) 1.8 <=5.9 RECOMMENDED COUMADIN/WARFARIN INR THERAPY RANGESSTANDARD DOSE: 2.0 - 3.0 Includes: PROPHYLAXIS forvenous thrombosis, systemic embolization; TREATMENT for venous thrombosis and/or pulmonary embolus.HIGH RISK: Target INR is 2.5-3.5 for patients with mechanical heart valves.CBC W/PLT COUNT & AUTO [id number] 04:45:00 Test Item Value Reference Range Comments WHITE BLOOD CELL COUNT (BEAKER) (test bxfv=523) 3.4 K/ L 3.5-10.5 RED BLOOD CELL COUNT (BEAKER) (test ipcr=549) 2.55 M/ L 4.63-6.08 HEMOGLOBIN (BEAKER) (test phhb=989) 8.1 GM/DL 13.7-17.5 HEMATOCRIT (BEAKER) (test qany=918) 24.0 % 40.1-51.0 MEAN CORPUSCULAR VOLUME (BEAKER) (test srph=883) 94.1 fL 79.0-92.2 MEAN CORPUSCULAR HEMOGLOBIN (BEAKER) (test 31.8 pg 25.7-32.2 tmuc=348) MEAN CORPUSCULAR HEMOGLOBIN CONC (BEAKER) (test 33.8 GM/DL 32.3-36.5 houa=738) RED CELL DISTRIBUTION WIDTH (BEAKER) (test 15.8 % 11.6-14.4 oqcy=905) PLATELET COUNT (BEAKER) (test pupr=417) 41 K/CU MM 150-450 MEAN PLATELET VOLUME (BEAKER) (test sonx=512) 10.0 fL 9.4-12.4 NUCLEATED RED BLOOD CELLS (BEAKER) (test 0 /100 WBC 0-0 tncz=647) NEUTROPHILS RELATIVE PERCENT (BEAKER) (test 63 % gchb=581) LYMPHOCYTES RELATIVE PERCENT (BEAKER) (test 19 % sjnp=651) MONOCYTES RELATIVE PERCENT (BEAKER) (test 16 % evhn=243) EOSINOPHILS RELATIVE PERCENT (BEAKER) (test 2 % ervv=168) BASOPHILS RELATIVE PERCENT (BEAKER) (test 0 % cbdq=442) NEUTROPHILS ABSOLUTE COUNT (BEAKER) (test 2.13 K/ L 1.78-5.38 hoap=629) LYMPHOCYTES ABSOLUTE COUNT (BEAKER) (test 0.62 K/ L 1.32-3.57 uovn=232) MONOCYTES ABSOLUTE COUNT (BEAKER) (test pjtj=095) 0.52 K/ L 0.30-0.82 EOSINOPHILS ABSOLUTE COUNT (BEAKER) (test 0.08 K/ L 0.04-0.54 gktb=449) BASOPHILS ABSOLUTE COUNT (BEAKER) (test uvfp=852) 0.00 K/ L 0.01-0.08 IMMATURE GRANULOCYTES-RELATIVE PERCENT (BEAKER) 0 % 0-1 (test fstm=0640) POCT-GLUCOSE [id number] 21:35:00 Test Item Value Reference Range Comments POC-GLUCOSE METER (BEAKER) 215 mg/dL 70-110 TESTED AT [facility] [address] [facility] (test cesb=9799) [facility] [address] POCT-GLUCOSE [id number] 18:17:00 Test Item Value Reference Range Comments POC-GLUCOSE METER (BEAKER) 149 mg/dL 70-110 TESTED AT [facility] [address] [facility] (test vnqz=3046) [facility] [address] COMPREHENSIVE METABOLIC [id number] 07:34:00 Test Item Value Reference Range Comments TOTAL PROTEIN (BEAKER) 4.7 gm/dL 6.0-8.3 Specimen slightly (test zzwr=135) hemolyzed ALBUMIN (BEAKER) (test 3.0 g/dL 3.5-5.0 Specimen slightly cdbt=8756) hemolyzed ALKALINE PHOSPHATASE 107 U/L 40-150 (BEAKER) (test pfsw=944) BILIRUBIN TOTAL (BEAKER) 3.1 mg/dL 0.2-1.2 Specimen slightly (test asgz=121) hemolyzed SODIUM (BEAKER) (test 125 meq/L 136-145 vyna=419) POTASSIUM (BEAKER) (test 4.9 meq/L 3.5-5.1 Specimen slightly jqps=665) hemolyzed CHLORIDE (BEAKER) (test 96 meq/L 98-107 qeqb=900) CO2 (BEAKER) (test 24 meq/L 22-29 mibu=409) BLOOD UREA NITROGEN 30 mg/dL 7-21 (BEAKER) (test orhf=003) CREATININE (BEAKER) (test 1.61 mg/dL 0.57-1.25 Specimen slightly tuzx=662) hemolyzed GLUCOSE RANDOM (BEAKER) 127 mg/dL 70-105 (test cuth=790) CALCIUM (BEAKER) (test 8.6 mg/dL 8.4-10.2 eypf=474) AST (SGOT) (BEAKER) (test 17 U/L 5-34 Specimen slightly bunz=290) hemolyzed ALT (SGPT) (BEAKER) (test < U/L 6-55 Specimen slightly xcke=747) hemolyzed EGFR (BEAKER) (test 45 mL/min/1.73 sq m ESTIMATED GFR IS NOT fuvj=4402) ACCURATE CREATININE CLEARANCE IN PREDICTING GLOMERULAR FILTRATION RATE. ESTIMATED GFR IS NOT APPLICABLE FOR DIALYSIS PATIENTS. Specimen slightly [id number] 06:49:00 Test Item Value Reference Range Comments PHOSPHORUS (BEAKER) (test affd=072) 3.0 mg/dL 2.3-4.7 [id number] 06:49:00 Test Item Value Reference Range Comments MAGNESIUM (BEAKER) (test ilkg=526) 2.0 mg/dL 1.6-2.6 PROTHROMBIN [id number] 06:39:00 Test Item Value Reference Range Comments PROTIME (BEAKER) (test nlnh=437) 23.0 seconds 11.7-14.7 INR (BEAKER) (test ftkw=881) 2.0 <=5.9 RECOMMENDED COUMADIN/WARFARIN INR THERAPY RANGESSTANDARD DOSE: 2.0 - 3.0 Includes: PROPHYLAXIS forvenous thrombosis, systemic embolization; TREATMENT for venous thrombosis and/or pulmonary embolus.HIGH RISK: Target INR is 2.5-3.5 for patients with mechanical heart valves.CBC W/PLT COUNT & AUTO [id number] 06:37:00 Test Item Value Reference Range Comments WHITE BLOOD CELL COUNT (BEAKER) (test ckvi=749) 3.3 K/ L 3.5-10.5 RED BLOOD CELL COUNT (BEAKER) (test xwxy=992) 2.43 M/ L 4.63-6.08 HEMOGLOBIN (BEAKER) (test tium=447) 7.8 GM/DL 13.7-17.5 HEMATOCRIT (BEAKER) (test twmd=316) 22.7 % 40.1-51.0 MEAN CORPUSCULAR VOLUME (BEAKER) (test daup=356) 93.4 fL 79.0-92.2 MEAN CORPUSCULAR HEMOGLOBIN (BEAKER) (test 32.1 pg 25.7-32.2 sfkb=406) MEAN CORPUSCULAR HEMOGLOBIN CONC (BEAKER) (test 34.4 GM/DL 32.3-36.5 alwy=834) RED CELL DISTRIBUTION WIDTH (BEAKER) (test 15.7 % 11.6-14.4 kiki=924) PLATELET COUNT (BEAKER) (test dscw=950) 37 K/CU MM 150-450 MEAN PLATELET VOLUME (BEAKER) (test deul=615) 9.6 fL 9.4-12.4 NUCLEATED RED BLOOD CELLS (BEAKER) (test 0 /100 WBC 0-0 mdza=242) NEUTROPHILS RELATIVE PERCENT (BEAKER) (test 70 % rziz=406) LYMPHOCYTES RELATIVE PERCENT (BEAKER) (test 16 % nfgg=194) MONOCYTES RELATIVE PERCENT (BEAKER) (test 11 % otqk=222) EOSINOPHILS RELATIVE PERCENT (BEAKER) (test 2 % gyum=468) BASOPHILS RELATIVE PERCENT (BEAKER) (test 0 % lstd=721) NEUTROPHILS ABSOLUTE COUNT (BEAKER) (test 2.29 K/ L 1.78-5.38 khqn=680) LYMPHOCYTES ABSOLUTE COUNT (BEAKER) (test 0.51 K/ L 1.32-3.57 wgfw=651) MONOCYTES ABSOLUTE COUNT (BEAKER) (test qjab=647) 0.37 K/ L 0.30-0.82 EOSINOPHILS ABSOLUTE COUNT (BEAKER) (test 0.07 K/ L 0.04-0.54 mggr=550) BASOPHILS ABSOLUTE COUNT (BEAKER) (test fhcz=288) 0.01 K/ L 0.01-0.08 IMMATURE GRANULOCYTES-RELATIVE PERCENT (BEAKER) 0 % 0-1 (test qdwc=5898) CALCIUM, [id number] 06:36:00 Test Item Value Reference Range Comments CALCIUM IONIZED (BEAKER) (test xmax=424) 1.00 mmol/L 1.12-1.27 PH, BLOOD (BEAKER) (test skrk=5284) 7.53 POCT-GLUCOSE [id number] 22:31:00 Test Item Value Reference Range Comments POC-GLUCOSE METER (BEAKER) 185 mg/dL 70-110 TESTED AT [address] (test vzmu=5647) [facility] [address] POCT-GLUCOSE [id number] 16:03:00 Test Item Value Reference Range Comments POC-GLUCOSE METER (BEAKER) 166 mg/dL 70-110 TESTED AT [address] (test biml=6614) [facility] [address] POCT-GLUCOSE [id number] 12:05:00 Test Item Value Reference Range Comments POC-GLUCOSE METER (BEAKER) 175 mg/dL 70-110 TESTED AT [address] (test qatu=8206) [facility] [address] POCT-GLUCOSE [id number] 08:02:00 Test Item Value Reference Range Comments POC-GLUCOSE METER (BEAKER) 162 mg/dL 70-110 TESTED AT [facility] [address] (test vsmy=7927) [place] [address] [id number] 03:52:00 Test Item Value Reference Range Comments MAGNESIUM (BEAKER) (test 2.1 mg/dL 1.6-2.6 Specimen slightly hemolyzed vodb=772) [id number] 03:52:00 Test Item Value Reference Range Comments PHOSPHORUS (BEAKER) (test 3.0 mg/dL 2.3-4.7 Specimen slightly hemolyzed sgdp=841) COMPREHENSIVE METABOLIC [id number] 03:52:00 Test Item Value Reference Range Comments TOTAL PROTEIN (BEAKER) 4.9 gm/dL 6.0-8.3 Specimen slightly (test rbjd=244) hemolyzed ALBUMIN (BEAKER) (test 3.2 g/dL 3.5-5.0 Specimen slightly dmig=9948) hemolyzed ALKALINE PHOSPHATASE 109 U/L 40-150 (BEAKER) (test avgv=230) BILIRUBIN TOTAL (BEAKER) 2.7 mg/dL 0.2-1.2 Specimen slightly (test mvqy=221) hemolyzed SODIUM (BEAKER) (test 125 meq/L 136-145 dgyu=345) POTASSIUM (BEAKER) (test 4.7 meq/L 3.5-5.1 Specimen slightly koju=207) hemolyzed CHLORIDE (BEAKER) (test 96 meq/L 98-107 htoy=031) CO2 (BEAKER) (test 23 meq/L 22-29 ddfx=513) BLOOD UREA NITROGEN 27 mg/dL 7-21 (BEAKER) (test xpbe=120) CREATININE (BEAKER) (test 1.86 mg/dL 0.57-1.25 Specimen slightly rsik=263) hemolyzed GLUCOSE RANDOM (BEAKER) 164 mg/dL 70-105 (test upye=956) CALCIUM (BEAKER) (test 8.4 mg/dL 8.4-10.2 fyso=021) AST (SGOT) (BEAKER) (test 17 U/L 5-34 Specimen slightly wlss=408) hemolyzed ALT (SGPT) (BEAKER) (test 6 U/L 6-55 Specimen slightly quah=850) hemolyzed EGFR (BEAKER) (test 38 mL/min/1.73 sq m ESTIMATED GFR IS NOT xiuk=2027) ACCURATE CREATININE CLEARANCE IN PREDICTING GLOMERULAR FILTRATION RATE. ESTIMATED GFR IS NOT APPLICABLE FOR DIALYSIS PATIENTS. Specimen slightly ictericCALCIUM, [id number] 03:13:00 Test Item Value Reference Range Comments CALCIUM IONIZED (BEAKER) (test pjyf=810) 0.94 mmol/L 1.12-1.27 PH, BLOOD (BEAKER) (test ucbw=8528) 7.55 PROTHROMBIN [id number] 03:10:00 Test Item Value Reference Range Comments PROTIME (BEAKER) (test mjwb=137) 22.6 seconds 11.7-14.7 INR (BEAKER) (test mutb=429) 2.0 <=5.9 RECOMMENDED COUMADIN/WARFARIN INR THERAPY RANGESSTANDARD DOSE: 2.0 - 3.0 Includes: PROPHYLAXIS forvenous thrombosis, systemic embolization; TREATMENT for venous thrombosis and/or pulmonary embolus.HIGH RISK: Target INR is 2.5-3.5 for patients with mechanical heart valves.CBC W/PLT COUNT & AUTO [id number] 03:03:00 Test Item Value Reference Range Comments WHITE BLOOD CELL COUNT (BEAKER) (test hugr=896) 3.4 K/ L 3.5-10.5 RED BLOOD CELL COUNT (BEAKER) (test vexa=262) 2.46 M/ L 4.63-6.08 HEMOGLOBIN (BEAKER) (test olua=010) 7.8 GM/DL 13.7-17.5 HEMATOCRIT (BEAKER) (test bnaf=409) 23.5 % 40.1-51.0 MEAN CORPUSCULAR VOLUME (BEAKER) (test uczc=156) 95.5 fL 79.0-92.2 MEAN CORPUSCULAR HEMOGLOBIN (BEAKER) (test 31.7 pg 25.7-32.2 bmcs=263) MEAN CORPUSCULAR HEMOGLOBIN CONC (BEAKER) (test 33.2 GM/DL 32.3-36.5 qfuh=579) RED CELL DISTRIBUTION WIDTH (BEAKER) (test 15.6 % 11.6-14.4 wmkk=630) PLATELET COUNT (BEAKER) (test wdye=857) 44 K/CU MM 150-450 MEAN PLATELET VOLUME (BEAKER) (test rjme=475) 10.6 fL 9.4-12.4 NUCLEATED RED BLOOD CELLS (BEAKER) (test 0 /100 WBC 0-0 eflt=067) NEUTROPHILS RELATIVE PERCENT (BEAKER) (test 79 % ejws=853) LYMPHOCYTES RELATIVE PERCENT (BEAKER) (test 12 % ndss=950) MONOCYTES RELATIVE PERCENT (BEAKER) (test 8 % wpua=721) EOSINOPHILS RELATIVE PERCENT (BEAKER) (test 0 % qfsh=359) BASOPHILS RELATIVE PERCENT (BEAKER) (test 0 % hwwy=367) NEUTROPHILS ABSOLUTE COUNT (BEAKER) (test 2.67 K/ L 1.78-5.38 mygn=153) LYMPHOCYTES ABSOLUTE COUNT (BEAKER) (test 0.41 K/ L 1.32-3.57 limd=309) MONOCYTES ABSOLUTE COUNT (BEAKER) (test pbzp=101) 0.27 K/ L 0.30-0.82 EOSINOPHILS ABSOLUTE COUNT (BEAKER) (test 0.01 K/ L 0.04-0.54 ompr=955) BASOPHILS ABSOLUTE COUNT (BEAKER) (test axfb=003) 0.01 K/ L 0.01-0.08 IMMATURE GRANULOCYTES-RELATIVE PERCENT (BEAKER) 0 % 0-1 (test dqcq=9359) POCT-GLUCOSE [id number] 22:50:00 Test Item Value Reference Range Comments POC-GLUCOSE METER (BEAKER) 199 mg/dL 70-110 TESTED AT [facility] [address] [facility] (test mqga=6450) [facility] [address] BODY FLUID CELL COUNT WITH [id number] 21:09:00 Test Item Value Reference Range Comments APPEARANCE FLUID (BEAKER) (test neqp=576) Clear Clear COLOR FLUID (BEAKER) (test cjpt=382) Yellow Colorless, Straw RBC FLUID (BEAKER) (test kkaz=981) 140 /cu mm <=1 ADJUSTED WBC FLUID (BEAKER) (test hlhm=2626) 70 /cu mm <=5 LINING CELLS (BEAKER) (test mrqu=7899) 0 /cu mm <=1 NEUTROPHILS FLUID (BEAKER) (test jwng=6947) 5 % LYMPHS FLUID (BEAKER) (test kbip=682) 18 % MONO/MACROPHAGE FLUID (BEAKER) (test dvlp=107) 77 % EOSINOPHILS FLUID (BEAKER) (test wyiy=692) 0 % BASO FLUID (BEAKER) (test wvfh=713) 0 % CONTAINER BODY FLUID (BEAKER) (test vupy=7320) EDTA Tube CORTISOL,60 [id number] 20:10:00 Test Item Value Reference Range Comments CORTISOL BASELINE NETWORKED (BEAKER) (test 5.6 mcg/dL hamb=7794) CORTISOL 30 MINUTE NETWORKED (BEAKER) (test 13.7 mcg/dL zpyu=3589) CORTISOL, 60 MINUTE (BEAKER) (test wnik=4354) 17.1 ug/dL ACTH STIMULATION TEST INTERPRETATION GUIDELINES(Synonyms: [...] serum cortisollevel 60 minutes after cosyntropin administration.CORTISOL,30 [id number] 19:45:00 Test Item Value Reference Range Comments CORTISOL BASELINE NETWORKED (BEAKER) (test 5.6 mcg/dL llbk=8029) CORTISOL, 30 MINUTE (BEAKER) (test mhdd=3358) 13.7 ug/dL ACTH STIMULATION TEST INTERPRETATION GUIDELINES(Synonyms: [...] serum cortisollevel 60 minutes after cosyntropin administration.U/S, [id number] 19:13:00Reason for exam:->therapeuticFINAL REPORT PROCEDURE: Ultrasound- guided paracentesis. INDICATION: Ascites. DESCRIPTION: After obtaining informed written consent, ultrasound scan of the abdomen identified ascites in the right lower quadrant. The overlying skin was prepped and draped in the usual, sterile fashion and local 1% lidocaine anesthesia was administered. A 5 [place] catheter was advanced into the peritoneal cavity and 6000 mL of area fluid was removed. The catheter was removed without immediate complication. Samples were sent for analysis. IMPRESSION:Uncomplicated ultrasound-guided paracentesis with 6000 mL of fluid removed. Signed: Stuart Dupree [facility] Verified Date/Time: 09/08/2018 19 :13:16 Reading Location: [address] Ultrasound Reading Room Electronically signed by: Claudia WEAVER 09/08/2018 07:13 PMCORTISOL, [id number] 18:54:00 Test Item Value Reference Range Comments CORTISOL, BASELINE (TUNG) (test srcx=8302) 5.6 ug/dL ACTH STIMULATION TEST INTERPRETATION GUIDELINES(Synonyms: [...] serum cortisollevel 60 minutes after cosyntropin administration.POCT-GLUCOSE [id number] 12:49:00 Test Item Value Reference Range Comments POC-GLUCOSE METER (BEAKER) 184 mg/dL 70-110 TESTED AT [address] (test ctgh=6664) [place] [address] POCT-GLUCOSE [id number] 07:56:00 Test Item Value Reference Range Comments POC-GLUCOSE METER (BEAKER) 174 mg/dL 70-110 TESTED AT [address] (test jtwd=0093) [place] [address] B-TYPE NATRIURETIC FACTOR (BNP)2018-09-08 05:20:00 Test Item Value Reference Range Comments B-TYPE NATRIURETIC PEPTIDE (BEAKER) (test 900 pg/mL 0-100 ylom=807) [id number] 05:15:00 Test Item Value Reference Range Comments PHOSPHORUS (BEAKER) (test fsch=284) 3.2 mg/dL 2.3-4.7 [id number] 05:15:00 Test Item Value Reference Range Comments MAGNESIUM (BEAKER) (test ymyt=877) 2.1 mg/dL 1.6-2.6 COMPREHENSIVE METABOLIC [id number] 05:15:00 Test Item Value Reference Range Comments TOTAL PROTEIN (BEAKER) 4.9 gm/dL 6.0-8.3 (test spzw=405) ALBUMIN (BEAKER) (test 3.2 g/dL 3.5-5.0 wssr=5304) ALKALINE PHOSPHATASE 109 U/L 40-150 (BEAKER) (test fjeo=610) BILIRUBIN TOTAL (BEAKER) 2.7 mg/dL 0.2-1.2 (test cuvp=070) SODIUM (BEAKER) (test 128 meq/L 136-145 rlpe=275) POTASSIUM (BEAKER) (test 3.9 meq/L 3.5-5.1 pyix=490) CHLORIDE (BEAKER) (test 98 meq/L 98-107 uzie=422) CO2 (BEAKER) (test 23 meq/L 22-29 filf=312) BLOOD UREA NITROGEN 27 mg/dL 7-21 (BEAKER) (test pstc=565) CREATININE (BEAKER) (test 2.17 mg/dL 0.57-1.25 gkmp=723) GLUCOSE RANDOM (BEAKER) 136 mg/dL 70-105 (test iaas=103) CALCIUM (BEAKER) (test 8.6 mg/dL 8.4-10.2 gwko=050) AST (SGOT) (BEAKER) (test 15 U/L 5-34 qagr=139) ALT (SGPT) (BEAKER) (test 7 U/L 6-55 jzrv=015) EGFR (BEAKER) (test 32 mL/min/1.73 sq m ESTIMATED GFR IS NOT xuwa=2233) ACCURATE CREATININE CLEARANCE IN PREDICTING GLOMERULAR FILTRATION RATE. ESTIMATED GFR IS NOT APPLICABLE FOR DIALYSIS PATIENTS. Specimen slightly ictericPROTHROMBIN [id number] 05:01:00 Test Item Value Reference Range Comments PROTIME (BEAKER) (test zmdi=684) 22.0 seconds 11.7-14.7 INR (BEAKER) (test dpzv=986) 1.9 <=5.9 RECOMMENDED COUMADIN/WARFARIN INR THERAPY RANGESSTANDARD DOSE: 2.0 - 3.0 Includes: PROPHYLAXIS forvenous thrombosis, systemic embolization; TREATMENT for venous thrombosis and/or pulmonary embolus.HIGH RISK: Target INR is 2.5-3.5 for patients with mechanical heart valves.CBC W/PLT COUNT & AUTO [id number] 04:55:00 Test Item Value Reference Range Comments WHITE BLOOD CELL COUNT (BEAKER) (test wbnm=471) 4.3 K/ L 3.5-10.5 RED BLOOD CELL COUNT (BEAKER) (test jjoq=910) 2.46 M/ L 4.63-6.08 HEMOGLOBIN (BEAKER) (test wlmn=495) 7.9 GM/DL 13.7-17.5 HEMATOCRIT (BEAKER) (test gslk=874) 23.3 % 40.1-51.0 MEAN CORPUSCULAR VOLUME (BEAKER) (test ozak=945) 94.7 fL 79.0-92.2 MEAN CORPUSCULAR HEMOGLOBIN (BEAKER) (test 32.1 pg 25.7-32.2 sodl=436) MEAN CORPUSCULAR HEMOGLOBIN CONC (BEAKER) (test 33.9 GM/DL 32.3-36.5 hela=338) RED CELL DISTRIBUTION WIDTH (BEAKER) (test 15.6 % 11.6-14.4 wrbz=128) PLATELET COUNT (BEAKER) (test tsah=820) 43 K/CU MM 150-450 MEAN PLATELET VOLUME (BEAKER) (test afhb=408) 9.6 fL 9.4-12.4 NUCLEATED RED BLOOD CELLS (BEAKER) (test 0 /100 WBC 0-0 zsaz=788) NEUTROPHILS RELATIVE PERCENT (BEAKER) (test 63 % wzhs=584) LYMPHOCYTES RELATIVE PERCENT (BEAKER) (test 13 % redb=726) MONOCYTES RELATIVE PERCENT (BEAKER) (test 19 % qrzx=514) EOSINOPHILS RELATIVE PERCENT (BEAKER) (test 5 % uxjx=886) BASOPHILS RELATIVE PERCENT (BEAKER) (test 0 % sljt=654) NEUTROPHILS ABSOLUTE COUNT (BEAKER) (test 2.72 K/ L 1.78-5.38 oadc=815) LYMPHOCYTES ABSOLUTE COUNT (BEAKER) (test 0.55 K/ L 1.32-3.57 bqyo=401) MONOCYTES ABSOLUTE COUNT (BEAKER) (test gvlx=496) 0.81 K/ L 0.30-0.82 EOSINOPHILS ABSOLUTE COUNT (BEAKER) (test 0.21 K/ L 0.04-0.54 nsye=745) BASOPHILS ABSOLUTE COUNT (BEAKER) (test mxyd=410) 0.01 K/ L 0.01-0.08 IMMATURE GRANULOCYTES-RELATIVE PERCENT (BEAKER) 0 % 0-1 (test iceu=6627) POCT-GLUCOSE [id number] 23:33:00 Test Item Value Reference Range Comments POC-GLUCOSE METER (BEAKER) 156 mg/dL 70-110 TESTED AT [facility] [address] [facility] (test btxg=4571) [facility] [address] POCT-GLUCOSE [id number] 18:09:00 Test Item Value Reference Range Comments POC-GLUCOSE METER (BEAKER) 170 mg/dL 70-110 TESTED AT [facility] [address] [place] [address] (test dtxx=2228) [facility] [address] POCT-GLUCOSE [id number] 12:01:00 Test Item Value Reference Range Comments POC-GLUCOSE METER (BEAKER) 181 mg/dL 70-110 TESTED AT [address] (test yoav=0754) [facility] [address] PROTHROMBIN [id number] 08:17:00 Test Item Value Reference Range Comments PROTIME (BEAKER) (test joam=662) 21.9 seconds 11.7-14.7 INR (BEAKER) (test iosw=582) 1.9 <=5.9 RECOMMENDED COUMADIN/WARFARIN INR THERAPY RANGESSTANDARD DOSE: 2.0 - 3.0 Includes: PROPHYLAXIS forvenous thrombosis, systemic embolization; TREATMENT for venous thrombosis and/or pulmonary embolus.HIGH RISK: Target INR is 2.5-3.5 for patients with mechanical heart valves.POCT-GLUCOSE [id number] 08:07:00 Test Item Value Reference Range Comments POC-GLUCOSE METER (BEAKER) 205 mg/dL 70-110 TESTED AT [address] (test xlax=2353) [facility] [address] COMPREHENSIVE METABOLIC [id number] 07:29:00 Test Item Value Reference Range Comments TOTAL PROTEIN (BEAKER) 4.9 gm/dL 6.0-8.3 (test zsgc=484) ALBUMIN (BEAKER) (test 3.3 g/dL 3.5-5.0 udpf=4961) ALKALINE PHOSPHATASE 106 U/L 40-150 (BEAKER) (test wfbk=045) BILIRUBIN TOTAL (BEAKER) 2.6 mg/dL 0.2-1.2 (test hvap=026) SODIUM (BEAKER) (test 129 meq/L 136-145 ihnw=557) POTASSIUM (BEAKER) (test 4.9 meq/L 3.5-5.1 aasd=843) CHLORIDE (BEAKER) (test 98 meq/L 98-107 azwj=648) CO2 (BEAKER) (test 23 meq/L 22-29 cmrg=705) BLOOD UREA NITROGEN 28 mg/dL 7-21 (BEAKER) (test giuc=121) CREATININE (BEAKER) (test 2.31 mg/dL 0.57-1.25 oroh=812) GLUCOSE RANDOM (BEAKER) 172 mg/dL 70-105 (test lsfs=026) CALCIUM (BEAKER) (test 8.5 mg/dL 8.4-10.2 vbfg=041) AST (SGOT) (BEAKER) (test 15 U/L 5-34 jgqa=599) ALT (SGPT) (BEAKER) (test 6 U/L 6-55 tufv=976) EGFR (BEAKER) (test 30 mL/min/1.73 sq m ESTIMATED GFR IS NOT mfdn=8137) ACCURATE CREATININE CLEARANCE IN PREDICTING GLOMERULAR FILTRATION RATE. ESTIMATED GFR IS NOT APPLICABLE FOR DIALYSIS PATIENTS. Specimen slightly ictericCBC W/PLT COUNT & AUTO [id number] 07:11 :00 Test Item Value Reference Range Comments WHITE BLOOD CELL COUNT (BEAKER) (test hdgn=336) 4.5 K/ L 3.5-10.5 RED BLOOD CELL COUNT (BEAKER) (test hxzx=171) 2.47 M/ L 4.63-6.08 HEMOGLOBIN (BEAKER) (test itjy=616) 7.8 GM/DL 13.7-17.5 HEMATOCRIT (BEAKER) (test kvhq=961) 23.3 % 40.1-51.0 MEAN CORPUSCULAR VOLUME (BEAKER) (test fuep=949) 94.3 fL 79.0-92.2 MEAN CORPUSCULAR HEMOGLOBIN (BEAKER) (test 31.6 pg 25.7-32.2 jlwd=378) MEAN CORPUSCULAR HEMOGLOBIN CONC (BEAKER) (test 33.5 GM/DL 32.3-36.5 vwcf=873) RED CELL DISTRIBUTION WIDTH (BEAKER) (test 15.4 % 11.6-14.4 gflg=742) PLATELET COUNT (BEAKER) (test tmex=760) 43 K/CU MM 150-450 MEAN PLATELET VOLUME (BEAKER) (test ixls=412) 8.7 fL 9.4-12.4 NUCLEATED RED BLOOD CELLS (BEAKER) (test 0 /100 WBC 0-0 ildt=494) NEUTROPHILS RELATIVE PERCENT (BEAKER) (test 64 % wtxz=425) LYMPHOCYTES RELATIVE PERCENT (BEAKER) (test 11 % fdke=429) MONOCYTES RELATIVE PERCENT (BEAKER) (test 20 % owrv=846) EOSINOPHILS RELATIVE PERCENT (BEAKER) (test 4 % ojvr=727) BASOPHILS RELATIVE PERCENT (BEAKER) (test 0 % ktsh=592) NEUTROPHILS ABSOLUTE COUNT (BEAKER) (test 2.86 K/ L 1.78-5.38 czul=211) LYMPHOCYTES ABSOLUTE COUNT (BEAKER) (test 0.49 K/ L 1.32-3.57 rrgl=425) MONOCYTES ABSOLUTE COUNT (BEAKER) (test pbez=082) 0.90 K/ L 0.30-0.82 EOSINOPHILS ABSOLUTE COUNT (BEAKER) (test 0.18 K/ L 0.04-0.54 live=834) BASOPHILS ABSOLUTE COUNT (BEAKER) (test issd=749) 0.02 K/ L 0.01-0.08 IMMATURE GRANULOCYTES-RELATIVE PERCENT (BEAKER) 0 % 0-1 (test bxwh=9812) POCT-GLUCOSE [id number] 22:31:00 Test Item Value Reference Range Comments POC-GLUCOSE METER (BEAKER) 161 mg/dL 70-110 TESTED AT [address] (test mqmy=9066) [facility] [address] POCT-GLUCOSE [id number] 16:31:00 Test Item Value Reference Range Comments POC-GLUCOSE METER (BEAKER) 135 mg/dL 70-110 TESTED AT [address] (test yvrs=9550) [place] [id number] POCT-GLUCOSE [id number] 12:16:00 Test Item Value Reference Range Comments POC-GLUCOSE METER (BEAKER) 144 mg/dL 70-110 TESTED AT [address] (test hrdr=9072) [place] [id number] POCT-GLUCOSE [id number] 07:53:00 Test Item Value Reference Range Comments POC-GLUCOSE METER (BEAKER) 93 mg/dL 70-110 TESTED AT [address] (test jdie=8797) [place] [address] COMPREHENSIVE METABOLIC [id number] 06:55:00 Test Item Value Reference Range Comments TOTAL PROTEIN (BEAKER) 4.8 gm/dL 6.0-8.3 (test sspi=224) ALBUMIN (BEAKER) (test 3.3 g/dL 3.5-5.0 fxlv=6021) ALKALINE PHOSPHATASE 103 U/L 40-150 (BEAKER) (test glgi=535) BILIRUBIN TOTAL (BEAKER) 2.7 mg/dL 0.2-1.2 (test porc=277) SODIUM (BEAKER) (test 125 meq/L 136-145 wcyn=804) POTASSIUM (BEAKER) (test 4.6 meq/L 3.5-5.1 nhbp=301) CHLORIDE (BEAKER) (test 96 meq/L 98-107 wfdq=589) CO2 (BEAKER) (test 22 meq/L 22-29 mpci=080) BLOOD UREA NITROGEN 30 mg/dL 7-21 (BEAKER) (test fpte=661) CREATININE (BEAKER) (test 2.01 mg/dL 0.57-1.25 lvnu=107) GLUCOSE RANDOM (BEAKER) 88 mg/dL 70-105 (test ogjl=110) CALCIUM (BEAKER) (test 8.5 mg/dL 8.4-10.2 qist=523) AST (SGOT) (BEAKER) (test 17 U/L 5-34 wbde=953) ALT (SGPT) (BEAKER) (test 7 U/L 6-55 zapi=405) EGFR (BEAKER) (test 35 mL/min/1.73 sq m ESTIMATED GFR IS NOT bmki=7057) ACCURATE CREATININE CLEARANCE IN PREDICTING GLOMERULAR FILTRATION RATE. ESTIMATED GFR IS NOT APPLICABLE FOR DIALYSIS PATIENTS. Specimen slightly ictericPROTHROMBIN [id number] 06:10:00 Test Item Value Reference Range Comments PROTIME (BEAKER) (test gpti=373) 23.2 seconds 11.7-14.7 INR (BEAKER) (test iipa=864) 2.1 <=5.9 RECOMMENDED COUMADIN/WARFARIN INR THERAPY RANGESSTANDARD DOSE: 2.0 - 3.0 Includes: PROPHYLAXIS forvenous thrombosis, systemic embolization; TREATMENT for venous thrombosis and/or pulmonary embolus.HIGH RISK: Target INR is 2.5-3.5 for patients with mechanical heart valves.POCT-GLUCOSE [id number] 22:42:00 Test Item Value Reference Range Comments POC-GLUCOSE METER (BEAKER) 124 mg/dL 70-110 TESTED AT [facility] [address] (test sais=7300) [facility] [address] POCT-GLUCOSE [id number] 17:04:00 Test Item Value Reference Range Comments POC-GLUCOSE METER (BEAKER) 86 mg/dL 70-110 TESTED AT [facility] [address] [facility] (test cklj=5455) [facility] [address] POCT-GLUCOSE [id number] 12:08:00 Test Item Value Reference Range Comments POC-GLUCOSE METER (BEAKER) 159 mg/dL 70-110 TESTED AT [facility] [address] [facility] (test bzpj=0080) [facility] [address] [id number] 08:39:00 Test Item Value Reference Range Comments PHOSPHORUS (BEAKER) (test qcdp=558) 3.9 mg/dL 2.3-4.7 [id number] 08:39:00 Test Item Value Reference Range Comments MAGNESIUM (BEAKER) (test zibl=461) 2.1 mg/dL 1.6-2.6 COMPREHENSIVE METABOLIC [id number] 08:39:00 Test Item Value Reference Range Comments TOTAL PROTEIN (BEAKER) 5.2 gm/dL 6.0-8.3 (test asko=846) ALBUMIN (BEAKER) (test 3.5 g/dL 3.5-5.0 zudv=0288) ALKALINE PHOSPHATASE 110 U/L 40-150 (BEAKER) (test stmb=068) BILIRUBIN TOTAL (BEAKER) 2.4 mg/dL 0.2-1.2 (test nwwj=035) SODIUM (BEAKER) (test 122 meq/L 136-145 wodu=096) POTASSIUM (BEAKER) (test 4.5 meq/L 3.5-5.1 oyar=642) CHLORIDE (BEAKER) (test 94 meq/L 98-107 ixky=601) CO2 (BEAKER) (test 20 meq/L 22-29 pezo=425) BLOOD UREA NITROGEN 31 mg/dL 7-21 (BEAKER) (test fnsu=051) CREATININE (BEAKER) (test 1.94 mg/dL 0.57-1.25 hbpg=720) GLUCOSE RANDOM (BEAKER) 127 mg/dL 70-105 (test wlgl=974) CALCIUM (BEAKER) (test 8.6 mg/dL 8.4-10.2 olka=411) AST (SGOT) (BEAKER) (test 17 U/L 5-34 ajza=832) ALT (SGPT) (BEAKER) (test 8 U/L 6-55 mbsx=754) EGFR (BEAKER) (test 36 mL/min/1.73 sq m ESTIMATED GFR IS NOT wbmy=8071) ACCURATE CREATININE CLEARANCE IN PREDICTING GLOMERULAR FILTRATION RATE. ESTIMATED GFR IS NOT APPLICABLE FOR DIALYSIS PATIENTS. Specimen slightly ictericPOCT-GLUCOSE [id number] 07:49:00 Test Item Value Reference Range Comments POC-GLUCOSE METER (BEAKER) 132 mg/dL 70-110 TESTED AT [facility] [address] [facility] (test ntrw=9433) [place] [address] CALCIUM, [id number] 06:35:00 Test Item Value Reference Range Comments CALCIUM IONIZED (BEAKER) (test odzd=510) 1.08 mmol/L 1.12-1.27 PH, BLOOD (BEAKER) (test wvjb=8241) 7.39 CBC W/PLT COUNT & AUTO [id number] 05:56:00 Test Item Value Reference Range Comments WHITE BLOOD CELL COUNT (BEAKER) (test ecoa=561) 4.1 K/ L 3.5-10.5 RED BLOOD CELL COUNT (BEAKER) (test qsig=352) 2.67 M/ L 4.63-6.08 HEMOGLOBIN (BEAKER) (test ksru=632) 8.3 GM/DL 13.7-17.5 HEMATOCRIT (BEAKER) (test bntc=082) 24.7 % 40.1-51.0 MEAN CORPUSCULAR VOLUME (BEAKER) (test zxxk=741) 92.5 fL 79.0-92.2 MEAN CORPUSCULAR HEMOGLOBIN (BEAKER) (test 31.1 pg 25.7-32.2 alik=354) MEAN CORPUSCULAR HEMOGLOBIN CONC (BEAKER) (test 33.6 GM/DL 32.3-36.5 wygt=477) RED CELL DISTRIBUTION WIDTH (BEAKER) (test 15.0 % 11.6-14.4 qxdb=549) PLATELET COUNT (BEAKER) (test wzbn=010) 58 K/CU MM 150-450 MEAN PLATELET VOLUME (BEAKER) (test tbiw=935) 9.3 fL 9.4-12.4 NUCLEATED RED BLOOD CELLS (BEAKER) (test 0 /100 WBC 0-0 pafm=511) NEUTROPHILS RELATIVE PERCENT (BEAKER) (test 64 % zjxj=550) LYMPHOCYTES RELATIVE PERCENT (BEAKER) (test 12 % nbki=709) MONOCYTES RELATIVE PERCENT (BEAKER) (test 18 % rtzb=644) EOSINOPHILS RELATIVE PERCENT (BEAKER) (test 5 % ngbw=060) BASOPHILS RELATIVE PERCENT (BEAKER) (test 0 % mxht=082) NEUTROPHILS ABSOLUTE COUNT (BEAKER) (test 2.63 K/ L 1.78-5.38 jgsd=655) LYMPHOCYTES ABSOLUTE COUNT (BEAKER) (test 0.51 K/ L 1.32-3.57 gyfq=595) MONOCYTES ABSOLUTE COUNT (BEAKER) (test ghvq=146) 0.74 K/ L 0.30-0.82 EOSINOPHILS ABSOLUTE COUNT (BEAKER) (test 0.21 K/ L 0.04-0.54 rnpb=219) BASOPHILS ABSOLUTE COUNT (BEAKER) (test zmee=006) 0.01 K/ L 0.01-0.08 IMMATURE GRANULOCYTES-RELATIVE PERCENT (BEAKER) 1 % 0-1 (test zkta=3071) PROTHROMBIN [id number] 05:49:00 Test Item Value Reference Range Comments PROTIME (BEAKER) (test qrgn=191) 20.4 seconds 11.7-14.7 INR (BEAKER) (test puhx=822) 1.8 <=5.9 RECOMMENDED COUMADIN/WARFARIN INR THERAPY RANGESSTANDARD DOSE: 2.0 - 3.0 Includes: PROPHYLAXIS forvenous thrombosis, systemic embolization; TREATMENT for venous thrombosis and/or pulmonary embolus.HIGH RISK: Target INR is 2.5-3.5 for patients with mechanical heart valves.[id number] 22:31:00 Test Item Value Reference Range Comments SODIUM (BEAKER) (test xxun=897) 123 meq/L 136-145 POTASSIUM (BEAKER) (test jytq=038) 4.5 meq/L 3.5-5.1 CHLORIDE (BEAKER) (test posh=570) 94 meq/L 98-107 CO2 (BEAKER) (test mcmt=664) 22 meq/L 22-29 Call results "at a decent hour" to [phone]-GLUCOSE [id number] 21: 48:00 Test Item Value Reference Range Comments POC-GLUCOSE METER (BEAKER) 144 mg/dL 70-110 TESTED AT [facility] [address] [facility] (test dtvk=1220) [facility] [address] [id number] 17:27:00 Test Item Value Reference Range Comments CORTISOL, TOTAL (BEAKER) (test osol=6954) 1.9 ug/dL 3.7-19.4 [id number] 17:03:00 Test Item Value Reference Range Comments SODIUM (BEAKER) (test suih=048) 123 meq/L 136-145 POTASSIUM (BEAKER) (test fpbt=405) 4.7 meq/L 3.5-5.1 CHLORIDE (BEAKER) (test qncz=649) 95 meq/L 98-107 CO2 (BEAKER) (test vsko=066) 21 meq/L 22-29 Call resultsPOCT-GLUCOSE [id number] 16:48:00 Test Item Value Reference Range Comments POC-GLUCOSE METER (BEAKER) 117 mg/dL 70-110 TESTED AT [address] (test hfuf=8438) [place] [address] SODIUM, RANDOM [id number] 15:12:00 Test Item Value Reference Range Comments SODIUM URINE (BEAKER) (test fksp=095) < meq/L Reference Range: No NormalsCREATININE, RANDOM [id number] 15:11:00 Test Item Value Reference Range Comments CREATININE URINE (BEAKER) (test mhjw=649) 87.5 mg/dL Reference Range: No NormalsOSMOLALITY, [id number] 15:05:00 Test Item Value Reference Range Comments OSMOLALITY URINE (BEAKER) (test ujzm=855) 234 mOsm/kg 40-1,400 POCT-GLUCOSE [id number] 13:14:00 Test Item Value Reference Range Comments POC-GLUCOSE METER (BEAKER) 129 mg/dL 70-110 TESTED AT [address] (test ylvt=2239) [place] [address] [id number] 10:06:00 Test Item Value Reference Range Comments SODIUM (BEAKER) (test qdnn=432) 120 meq/L 136-145 POTASSIUM (BEAKER) (test npqs=368) 4.6 meq/L 3.5-5.1 CHLORIDE (BEAKER) (test cfya=243) 93 meq/L 98-107 CO2 (BEAKER) (test gsgn=666) 23 meq/L 22-29 Call [id number] 09:01:00 Test Item Value Reference Range Comments POC-GLUCOSE METER (BEAKER) 97 mg/dL 70-110 TESTED AT [facility] [address] (test wydq=3406) [facility] [address] COMPREHENSIVE METABOLIC [id number] 08:40:00 Test Item Value Reference Range Comments TOTAL PROTEIN (BEAKER) 5.2 gm/dL 6.0-8.3 (test kuxt=633) ALBUMIN (BEAKER) (test 3.7 g/dL 3.5-5.0 zole=2874) ALKALINE PHOSPHATASE 104 U/L 40-150 (BEAKER) (test gfio=595) BILIRUBIN TOTAL (BEAKER) 3.3 mg/dL 0.2-1.2 (test qesj=370) SODIUM (BEAKER) (test 120 meq/L 136-145 gyvi=547) POTASSIUM (BEAKER) (test 4.8 meq/L 3.5-5.1 uake=702) CHLORIDE (BEAKER) (test 93 meq/L 98-107 wxcd=274) CO2 (BEAKER) (test 20 meq/L 22-29 rxms=704) BLOOD UREA NITROGEN 31 mg/dL 7-21 (BEAKER) (test vsuj=214) CREATININE (BEAKER) (test 1.72 mg/dL 0.57-1.25 yzet=649) GLUCOSE RANDOM (BEAKER) 99 mg/dL 70-105 (test xeoo=641) CALCIUM (BEAKER) (test 8.9 mg/dL 8.4-10.2 dguq=847) AST (SGOT) (BEAKER) (test 16 U/L 5-34 lhgl=463) ALT (SGPT) (BEAKER) (test < U/L 6-55 egvu=474) EGFR (BEAKER) (test 42 mL/min/1.73 sq m ESTIMATED GFR IS NOT trrx=4037) ACCURATE CREATININE CLEARANCE IN PREDICTING GLOMERULAR FILTRATION RATE. ESTIMATED GFR IS NOT APPLICABLE FOR DIALYSIS PATIENTS. Specimen slightly [id number] 08:14:00 Test Item Value Reference Range Comments PHOSPHORUS (BEAKER) (test atea=207) 3.8 mg/dL 2.3-4.7 [id number] 08:14:00 Test Item Value Reference Range Comments MAGNESIUM (BEAKER) (test hwur=643) 2.1 mg/dL 1.6-2.6 CALCIUM, [id number] 06:56:00 Test Item Value Reference Range Comments CALCIUM IONIZED (BEAKER) (test zdji=560) 1.12 mmol/L 1.12-1.27 PH, BLOOD (BEAKER) (test wehg=0637) 7.36 CBC W/PLT COUNT & AUTO [id number] 06:38:00 Test Item Value Reference Range Comments WHITE BLOOD CELL COUNT (BEAKER) (test estc=175) 4.9 K/ L 3.5-10.5 RED BLOOD CELL COUNT (BEAKER) (test yean=794) 2.69 M/ L 4.63-6.08 HEMOGLOBIN (BEAKER) (test zukh=669) 8.3 GM/DL 13.7-17.5 HEMATOCRIT (BEAKER) (test vxdc=709) 24.8 % 40.1-51.0 MEAN CORPUSCULAR VOLUME (BEAKER) (test ojrc=117) 92.2 fL 79.0-92.2 MEAN CORPUSCULAR HEMOGLOBIN (BEAKER) (test 30.9 pg 25.7-32.2 zynr=996) MEAN CORPUSCULAR HEMOGLOBIN CONC (BEAKER) (test 33.5 GM/DL 32.3-36.5 ojqe=363) RED CELL DISTRIBUTION WIDTH (BEAKER) (test 14.8 % 11.6-14.4 luvr=354) PLATELET COUNT (BEAKER) (test fuse=677) 65 K/CU MM 150-450 MEAN PLATELET VOLUME (BEAKER) (test mjdi=717) 9.1 fL 9.4-12.4 NUCLEATED RED BLOOD CELLS (BEAKER) (test 0 /100 WBC 0-0 msmo=029) NEUTROPHILS RELATIVE PERCENT (BEAKER) (test 67 % eeep=141) LYMPHOCYTES RELATIVE PERCENT (BEAKER) (test 10 % pdah=080) MONOCYTES RELATIVE PERCENT (BEAKER) (test 17 % mycs=486) EOSINOPHILS RELATIVE PERCENT (BEAKER) (test 5 % ucpr=622) BASOPHILS RELATIVE PERCENT (BEAKER) (test 0 % evmf=341) NEUTROPHILS ABSOLUTE COUNT (BEAKER) (test 3.32 K/ L 1.78-5.38 vqee=486) LYMPHOCYTES ABSOLUTE COUNT (BEAKER) (test 0.51 K/ L 1.32-3.57 gutd=823) MONOCYTES ABSOLUTE COUNT (BEAKER) (test xcgn=488) 0.83 K/ L 0.30-0.82 EOSINOPHILS ABSOLUTE COUNT (BEAKER) (test 0.23 K/ L 0.04-0.54 btpv=852) BASOPHILS ABSOLUTE COUNT (BEAKER) (test zugn=094) 0.02 K/ L 0.01-0.08 IMMATURE GRANULOCYTES-RELATIVE PERCENT (BEAKER) 1 % 0-1 (test etdw=0962) [id number] 06:35:00 Test Item Value Reference Range Comments PARTIAL THROMBOPLASTIN TIME (BEAKER) (test 52.6 seconds 22.5-36.0 qmde=568) PROTHROMBIN [id number] 06:34:00 Test Item Value Reference Range Comments PROTIME (BEAKER) (test hcii=504) 21.6 seconds 11.7-14.7 INR (BEAKER) (test qdhy=791) 1.9 <=5.9 RECOMMENDED COUMADIN/WARFARIN INR THERAPY RANGESSTANDARD DOSE: 2.0 - 3.0 Includes: PROPHYLAXIS forvenous thrombosis, systemic embolization; TREATMENT for venous thrombosis and/or pulmonary embolus.HIGH RISK: Target INR is 2.5-3.5 for patients with mechanical heart valves.POCT-GLUCOSE [id number] 22:00:00 Test Item Value Reference Range Comments POC-GLUCOSE METER (BEAKER) 114 mg/dL 70-110 TESTED AT [address] (test wrga=2213) [place] [address] POCT-GLUCOSE [id number] 17:57:00 Test Item Value Reference Range Comments POC-GLUCOSE METER (BEAKER) 139 mg/dL 70-110 TESTED AT [address] (test zkqt=5749) [place] [address] POCT-GLUCOSE [id number] 11:57:00 Test Item Value Reference Range Comments POC-GLUCOSE METER (BEAKER) 146 mg/dL 70-110 TESTED AT [address] (test hlmo=3634) [place] [address] POCT-GLUCOSE [id number] 09:16:00 Test Item Value Reference Range Comments POC-GLUCOSE METER (BEAKER) 109 mg/dL 70-110 TESTED AT [address] (test udjl=6133) [place] [address] COMPREHENSIVE METABOLIC [id number] 05:53:00 Test Item Value Reference Range Comments TOTAL PROTEIN (BEAKER) 5.2 gm/dL 6.0-8.3 (test icuj=595) ALBUMIN (BEAKER) (test 3.8 g/dL 3.5-5.0 glhw=9770) ALKALINE PHOSPHATASE 110 U/L 40-150 (BEAKER) (test dbmw=166) BILIRUBIN TOTAL (BEAKER) 4.5 mg/dL 0.2-1.2 (test lshc=846) SODIUM (BEAKER) (test 124 meq/L 136-145 jkiw=758) POTASSIUM (BEAKER) (test 4.5 meq/L 3.5-5.1 wadn=410) CHLORIDE (BEAKER) (test 95 meq/L 98-107 gpgd=236) CO2 (BEAKER) (test 22 meq/L 22-29 tyrg=040) BLOOD UREA NITROGEN 30 mg/dL 7-21 (BEAKER) (test wack=662) CREATININE (BEAKER) (test 1.67 mg/dL 0.57-1.25 tkab=888) GLUCOSE RANDOM (BEAKER) 99 mg/dL 70-105 (test wwef=772) CALCIUM (BEAKER) (test 9.0 mg/dL 8.4-10.2 kulh=905) AST (SGOT) (BEAKER) (test 16 U/L 5-34 omlm=699) ALT (SGPT) (BEAKER) (test < U/L 6-55 ollr=904) EGFR (BEAKER) (test 43 mL/min/1.73 sq m ESTIMATED GFR IS NOT vdrt=2438) ACCURATE CREATININE CLEARANCE IN PREDICTING GLOMERULAR FILTRATION RATE. ESTIMATED GFR IS NOT APPLICABLE FOR DIALYSIS PATIENTS. Specimen slightly [id number] 05:50:00 Test Item Value Reference Range Comments PHOSPHORUS (BEAKER) (test nugl=668) 3.7 mg/dL 2.3-4.7 [id number] 05:50:00 Test Item Value Reference Range Comments MAGNESIUM (BEAKER) (test kkfg=163) 2.1 mg/dL 1.6-2.6 CBC W/PLT COUNT & AUTO [id number] 05:28:00 Test Item Value Reference Range Comments WHITE BLOOD CELL COUNT (BEAKER) (test bcid=520) 4.0 K/ L 3.5-10.5 RED BLOOD CELL COUNT (BEAKER) (test byyg=678) 2.80 M/ L 4.63-6.08 HEMOGLOBIN (BEAKER) (test izsm=069) 8.7 GM/DL 13.7-17.5 HEMATOCRIT (BEAKER) (test ajjo=219) 25.8 % 40.1-51.0 MEAN CORPUSCULAR VOLUME (BEAKER) (test vkyz=120) 92.1 fL 79.0-92.2 MEAN CORPUSCULAR HEMOGLOBIN (BEAKER) (test 31.1 pg 25.7-32.2 pybh=828) MEAN CORPUSCULAR HEMOGLOBIN CONC (BEAKER) (test 33.7 GM/DL 32.3-36.5 pyvl=538) RED CELL DISTRIBUTION WIDTH (BEAKER) (test 14.7 % 11.6-14.4 rhej=067) PLATELET COUNT (BEAKER) (test pkwk=182) 42 K/CU MM 150-450 MEAN PLATELET VOLUME (BEAKER) (test ylcg=976) 9.8 fL 9.4-12.4 NUCLEATED RED BLOOD CELLS (BEAKER) (test 0 /100 WBC 0-0 merm=079) NEUTROPHILS RELATIVE PERCENT (BEAKER) (test 59 % gvef=100) LYMPHOCYTES RELATIVE PERCENT (BEAKER) (test 15 % lslg=915) MONOCYTES RELATIVE PERCENT (BEAKER) (test 20 % rlwn=414) EOSINOPHILS RELATIVE PERCENT (BEAKER) (test 5 % qlcd=617) BASOPHILS RELATIVE PERCENT (BEAKER) (test 1 % jjrf=857) NEUTROPHILS ABSOLUTE COUNT (BEAKER) (test 2.37 K/ L 1.78-5.38 mlcq=661) LYMPHOCYTES ABSOLUTE COUNT (BEAKER) (test 0.58 K/ L 1.32-3.57 hleq=085) MONOCYTES ABSOLUTE COUNT (BEAKER) (test modl=541) 0.78 K/ L 0.30-0.82 EOSINOPHILS ABSOLUTE COUNT (BEAKER) (test 0.21 K/ L 0.04-0.54 wklz=760) BASOPHILS ABSOLUTE COUNT (BEAKER) (test suos=983) 0.02 K/ L 0.01-0.08 IMMATURE GRANULOCYTES-RELATIVE PERCENT (BEAKER) 1 % 0-1 (test hbhf=1122) PROTHROMBIN [id number] 05:26:00 Test Item Value Reference Range Comments PROTIME (BEAKER) (test jgla=303) 23.3 seconds 11.7-14.7 INR (BEAKER) (test yucq=618) 2.1 <=5.9 RECOMMENDED COUMADIN/WARFARIN INR THERAPY RANGESSTANDARD DOSE: 2.0 - 3.0 Includes: PROPHYLAXIS forvenous thrombosis, systemic embolization; TREATMENT for venous thrombosis and/or pulmonary embolus.HIGH RISK: Target INR is 2.5-3.5 for patients with mechanical heart valves.CALCIUM, [id number] 05:21:00 Test Item Value Reference Range Comments CALCIUM IONIZED (BEAKER) (test lqcp=315) 1.11 mmol/L 1.12-1.27 PH, BLOOD (BEAKER) (test apzv=9052) 7.40 POCT-GLUCOSE [id number] 21:47:00 Test Item Value Reference Range Comments POC-GLUCOSE METER (BEAKER) 129 mg/dL 70-110 TESTED AT [address] (test xtce=1555) [facility] [address] RAD, CHEST, 1 VIEW, NON [id number] 17:18:00Reason for exam:->sobFINAL REPORT Comparison: 08/26/2018 TECHNIQUE: Single view of the chest FINDINGS: Lung volumes are low. Bibasilar densities may represent atelectasis. Otherwise lungs are clear. Cardiac silhouette is within normal limits. Soft tissues and bones are unremarkable. Signed: Rick Guerra MDReport Verified Date/Time: 09/02/2018 17:18:49 Reading Location: [facility] Mammo Reading Room CBC W/ PLT COUNT & AUTO [id number] 17:16:00 Test Item Value Reference Range Comments WHITE BLOOD CELL COUNT (BEAKER) (test mffg=650) 3.8 K/ L 3.5-10.5 RED BLOOD CELL COUNT (BEAKER) (test ubdu=753) 2.37 M/ L 4.63-6.08 HEMOGLOBIN (BEAKER) (test sywf=347) 7.4 GM/DL 13.7-17.5 HEMATOCRIT (BEAKER) (test nkwm=092) 21.8 % 40.1-51.0 MEAN CORPUSCULAR VOLUME (BEAKER) (test voky=804) 92.0 fL 79.0-92.2 MEAN CORPUSCULAR HEMOGLOBIN (BEAKER) (test 31.2 pg 25.7-32.2 lzub=119) MEAN CORPUSCULAR HEMOGLOBIN CONC (BEAKER) (test 33.9 GM/DL 32.3-36.5 dscb=543) RED CELL DISTRIBUTION WIDTH (BEAKER) (test 14.9 % 11.6-14.4 iffl=988) PLATELET COUNT (BEAKER) (test wdmd=119) 41 K/CU MM 150-450 MEAN PLATELET VOLUME (BEAKER) (test qkzn=834) 8.8 fL 9.4-12.4 NUCLEATED RED BLOOD CELLS (BEAKER) (test 0 /100 WBC 0-0 lcsd=148) NEUTROPHILS RELATIVE PERCENT (BEAKER) (test 62 % vwpm=546) LYMPHOCYTES RELATIVE PERCENT (BEAKER) (test 14 % kmre=138) MONOCYTES RELATIVE PERCENT (BEAKER) (test 18 % mkyf=393) EOSINOPHILS RELATIVE PERCENT (BEAKER) (test 4 % zwhc=902) BASOPHILS RELATIVE PERCENT (BEAKER) (test 0 % dvww=337) NEUTROPHILS ABSOLUTE COUNT (BEAKER) (test 2.39 K/ L 1.78-5.38 zdml=565) LYMPHOCYTES ABSOLUTE COUNT (BEAKER) (test 0.55 K/ L 1.32-3.57 igpu=425) MONOCYTES ABSOLUTE COUNT (BEAKER) (test cyni=743) 0.69 K/ L 0.30-0.82 EOSINOPHILS ABSOLUTE COUNT (BEAKER) (test 0.17 K/ L 0.04-0.54 qwjj=218) BASOPHILS ABSOLUTE COUNT (BEAKER) (test tazb=218) 0.01 K/ L 0.01-0.08 IMMATURE GRANULOCYTES-RELATIVE PERCENT (BEAKER) 1 % 0-1 (test mjox=2638) POCT-BLOOD GASES, [id number] 16:58:00 Test Item Value Reference Range Comments TEMP, CELSIUS-POC (BEAKER) 37.0 (test rprr=9345) FIO2-POC (BEAKER) (test TESTED AT [facility] [address] [facility] xbxk=9564) [place] [address] PH, ARTERIAL-POC (BEAKER) 7.412 7.350-7.450 (test ougc=4282) PCO2, ARTERIAL-POC (BEAKER) 35.5 mm Hg 35.0-45.0 (test jegw=4259) PO2, ARTERIAL-POC (BEAKER) 69.0 mm Hg 80.0-90.0 (test voix=4831) SO2, ARTERIAL-POC (BEAKER) 94.0 % 96.0-97.0 (test rypl=3227) HCO3, ARTERIAL-POC (BEAKER) 22.6 meq/L 21.0-29.0 (test hkoa=3579) BASE EXCESS, ARTERIAL-POC -2.0 meq/L -2.0-3.0 (BEAKER) (test vfcb=2948) [id number] 16:58:00 Test Item Value Reference Range Comments POC-SODIUM (BEAKER) (test 125 meq/L 135-148 TESTED AT [address] rmcy=7862) [place] [address] [id number] 16:58:00 Test Item Value Reference Range Comments POC-POTASSIUM (BEAKER) (test 4.2 meq/L 3.6-5.5 TESTED AT [address] uxpg=8874) [place] [address] [id number] 16:58:00 Test Item Value Reference Range Comments POC-GLUCOSE (BEAKER) (test 128 mg/dL 70-110 TESTED AT [address] pcri=1732) [place] [address] POCT-CALCIUM [id number] 16:58:00 Test Item Value Reference Range Comments POC-CALCIUM IONIZED (BEAKER) 1.24 mmol/L 1.12-1.27 TESTED AT [address] (test ibop=1638) [place] [address] [id number] 16:58:00 Test Item Value Reference Range Comments POC-HEMATOCRIT (BEAKER) (test 21 % 40-50 TESTED AT [address] zmpb=6330) [place] [address] [id number] 16:58:00 Test Item Value Reference Range Comments POC-HEMOGLOBIN (BEAKER) 7.1 g/dL 13.0-16.8 TESTED AT [address] (test zshq=4604) [facility] [id number] AT [address] [address] POCT-LACTIC ACID, [id number] 16:58:00 Test Item Value Reference Range Comments POC-LACTIC ACID, ARTERIAL 1.0 mmol/L 0.4-1.3 TESTED AT [address] (BEAKER) (test bnfx=7242) [facility] [address] POCT-GLUCOSE [id number] 11:43:00 Test Item Value Reference Range Comments POC-GLUCOSE METER (BEAKER) 169 mg/dL 70-110 TESTED AT [address] (test hdiz=7507) [facility] [address] POCT-GLUCOSE [id number] 08:23:00 Test Item Value Reference Range Comments POC-GLUCOSE METER (BEAKER) 128 mg/dL 70-110 TESTED AT [address] (test jdms=6969) [facility] [address] [id number] 05:16:00 Test Item Value Reference Range Comments PHOSPHORUS (BEAKER) (test tgkq=354) 3.8 mg/dL 2.3-4.7 [id number] 05:16:00 Test Item Value Reference Range Comments MAGNESIUM (BEAKER) (test lzmb=164) 2.0 mg/dL 1.6-2.6 COMPREHENSIVE METABOLIC [id number] 05:16:00 Test Item Value Reference Range Comments TOTAL PROTEIN (BEAKER) 5.0 gm/dL 6.0-8.3 (test pzmv=537) ALBUMIN (BEAKER) (test 3.5 g/dL 3.5-5.0 hrmx=1581) ALKALINE PHOSPHATASE 124 U/L 40-150 (BEAKER) (test vkdv=166) BILIRUBIN TOTAL (BEAKER) 2.2 mg/dL 0.2-1.2 (test dvjn=081) SODIUM (BEAKER) (test 125 meq/L 136-145 sqhu=540) POTASSIUM (BEAKER) (test 4.4 meq/L 3.5-5.1 rncj=242) CHLORIDE (BEAKER) (test 96 meq/L 98-107 atiy=490) CO2 (BEAKER) (test 23 meq/L 22-29 zhxy=664) BLOOD UREA NITROGEN 27 mg/dL 7-21 (BEAKER) (test okpt=146) CREATININE (BEAKER) (test 1.74 mg/dL 0.57-1.25 ptvg=225) GLUCOSE RANDOM (BEAKER) 112 mg/dL 70-105 (test alyh=567) CALCIUM (BEAKER) (test 8.8 mg/dL 8.4-10.2 nvon=638) AST (SGOT) (BEAKER) (test 17 U/L 5-34 gosj=358) ALT (SGPT) (BEAKER) (test 7 U/L 6-55 udpk=488) EGFR (BEAKER) (test 41 mL/min/1.73 sq m ESTIMATED GFR IS NOT lplk=7806) ACCURATE CREATININE CLEARANCE IN PREDICTING GLOMERULAR FILTRATION RATE. ESTIMATED GFR IS NOT APPLICABLE FOR DIALYSIS PATIENTS. CALCIUM, [id number] 05:13:00 Test Item Value Reference Range Comments CALCIUM IONIZED (BEAKER) (test igsp=501) 1.10 mmol/L 1.12-1.27 PH, BLOOD (BEAKER) (test cvzv=6209) 7.44 CBC W/PLT COUNT & AUTO [id number] 05:02:00 Test Item Value Reference Range Comments WHITE BLOOD CELL COUNT (BEAKER) (test anjp=648) 3.2 K/ L 3.5-10.5 RED BLOOD CELL COUNT (BEAKER) (test afjx=722) 2.23 M/ L 4.63-6.08 HEMOGLOBIN (BEAKER) (test tynn=039) 6.9 GM/DL 13.7-17.5 HEMATOCRIT (BEAKER) (test xfqz=728) 20.8 % 40.1-51.0 MEAN CORPUSCULAR VOLUME (BEAKER) (test sppa=051) 93.3 fL 79.0-92.2 MEAN CORPUSCULAR HEMOGLOBIN (BEAKER) (test 30.9 pg 25.7-32.2 cbpc=983) MEAN CORPUSCULAR HEMOGLOBIN CONC (BEAKER) (test 33.2 GM/DL 32.3-36.5 mukw=048) RED CELL DISTRIBUTION WIDTH (BEAKER) (test 14.6 % 11.6-14.4 jnls=697) PLATELET COUNT (BEAKER) (test jqcv=258) 43 K/CU MM 150-450 MEAN PLATELET VOLUME (BEAKER) (test tdtz=479) 9.3 fL 9.4-12.4 NUCLEATED RED BLOOD CELLS (BEAKER) (test 0 /100 WBC 0-0 sfgw=150) NEUTROPHILS RELATIVE PERCENT (BEAKER) (test 58 % zpgb=785) LYMPHOCYTES RELATIVE PERCENT (BEAKER) (test 17 % oknd=141) MONOCYTES RELATIVE PERCENT (BEAKER) (test 18 % pqmb=229) EOSINOPHILS RELATIVE PERCENT (BEAKER) (test 5 % rpsz=773) BASOPHILS RELATIVE PERCENT (BEAKER) (test 1 % fspe=866) NEUTROPHILS ABSOLUTE COUNT (BEAKER) (test 1.84 K/ L 1.78-5.38 nney=664) LYMPHOCYTES ABSOLUTE COUNT (BEAKER) (test 0.54 K/ L 1.32-3.57 sfnb=052) MONOCYTES ABSOLUTE COUNT (BEAKER) (test uynq=071) 0.56 K/ L 0.30-0.82 EOSINOPHILS ABSOLUTE COUNT (BEAKER) (test 0.15 K/ L 0.04-0.54 rxwz=910) BASOPHILS ABSOLUTE COUNT (BEAKER) (test bfew=328) 0.02 K/ L 0.01-0.08 IMMATURE GRANULOCYTES-RELATIVE PERCENT (BEAKER) 1 % 0-1 (test sznf=2995) PROTHROMBIN [id number] 05:00:00 Test Item Value Reference Range Comments PROTIME (BEAKER) (test blyn=222) 22.7 seconds 11.7-14.7 INR (BEAKER) (test lvpf=186) 2.0 <=5.9 RECOMMENDED COUMADIN/WARFARIN INR THERAPY RANGESSTANDARD DOSE: 2.0 - 3.0 Includes: PROPHYLAXIS forvenous thrombosis, systemic embolization; TREATMENT for venous thrombosis and/or pulmonary embolus.HIGH RISK: Target INR is 2.5-3.5 for patients with mechanical heart valves.POCT-GLUCOSE [id number] 22:18:00 Test Item Value Reference Range Comments POC-GLUCOSE METER (BEAKER) 194 mg/dL 70-110 TESTED AT [address] (test xfje=8817) [place] [address] POCT-GLUCOSE [id number] 17:33:00 Test Item Value Reference Range Comments POC-GLUCOSE METER (BEAKER) 160 mg/dL 70-110 TESTED AT [address] (test flld=3815) [place] [id number] POCT-GLUCOSE [id number] 11:56:00 Test Item Value Reference Range Comments POC-GLUCOSE METER (BEAKER) 151 mg/dL 70-110 TESTED AT [facility] [address] [facility] (test jtsw=8707) [facility] [address] URINALYSIS W/ [id number] 09:52:00 Test Item Value Reference Range Comments COLOR (BEAKER) (test aemz=226) Yellow CLARITY (BEAKER) (test hsnq=806) Clear SPECIFIC GRAVITY UA (BEAKER) (test 1.014 1.001-1.035 qkng=557) PH UA (BEAKER) (test emcq=010) 5.5 5.0-8.0 PROTEIN UA (BEAKER) (test rdok=845) Negative Negative GLUCOSE UA (BEAKER) (test jvdx=294) Negative Negative KETONES UA (BEAKER) (test hcgv=097) Negative Negative BILIRUBIN UA (BEAKER) (test cocz=899) Negative Negative BLOOD UA (BEAKER) (test fwtc=233) Negative Negative NITRITE UA (BEAKER) (test gdqg=226) Negative Negative LEUKOCYTE ESTERASE UA (BEAKER) (test Negative Negative gxas=365) UROBILINOGEN UA (BEAKER) (test cycz=220) 0.2 mg/dL 0.2-1.0 RBC UA (BEAKER) (test tkin=885) 1 /HPF WBC UA (BEAKER) (test fjzx=536) 4 /HPF BACTERIA (BEAKER) (test qsyf=511) Rare MUCUS (BEAKER) (test tyrh=9274) Rare HYALINE CASTS (BEAKER) (test vqmu=787) 19 /LPF YEAST (BEAKER) (test tord=7526) Rare SOURCE(BEAKER) (test kmxv=0553) Urine, Clean Catch SODIUM, RANDOM [id number] 09:09:00 Test Item Value Reference Range Comments SODIUM URINE (BEAKER) (test geun=570) < meq/L Reference Range: No NormalsCREATININE, RANDOM [id number] 09:04:00 Test Item Value Reference Range Comments CREATININE URINE (BEAKER) (test xysw=128) 149.6 mg/dL Reference Range: No NormalsPOCT-GLUCOSE [id number] 08:12:00 Test Item Value Reference Range Comments POC-GLUCOSE METER (BEAKER) 106 mg/dL 70-110 TESTED AT [facility] [address] (test qynu=8159) [place] [address] CBC W/PLT COUNT & AUTO [id number] 06:56:00 Test Item Value Reference Range Comments WHITE BLOOD CELL COUNT (BEAKER) (test rism=642) 4.5 K/ L 3.5-10.5 RED BLOOD CELL COUNT (BEAKER) (test ztkd=784) 2.22 M/ L 4.63-6.08 HEMOGLOBIN (BEAKER) (test hggr=917) 7.0 GM/DL 13.7-17.5 HEMATOCRIT (BEAKER) (test zaqn=572) 20.6 % 40.1-51.0 MEAN CORPUSCULAR VOLUME (BEAKER) (test xmss=399) 92.8 fL 79.0-92.2 MEAN CORPUSCULAR HEMOGLOBIN (BEAKER) (test 31.5 pg 25.7-32.2 jurg=281) MEAN CORPUSCULAR HEMOGLOBIN CONC (BEAKER) (test 34.0 GM/DL 32.3-36.5 faic=914) RED CELL DISTRIBUTION WIDTH (BEAKER) (test 14.7 % 11.6-14.4 nbla=549) PLATELET COUNT (BEAKER) (test kxrr=010) 44 K/CU MM 150-450 MEAN PLATELET VOLUME (BEAKER) (test aolb=375) 9.0 fL 9.4-12.4 NUCLEATED RED BLOOD CELLS (BEAKER) (test 0 /100 WBC 0-0 xjyi=317) NEUTROPHILS RELATIVE PERCENT (BEAKER) (test 69 % jnur=578) LYMPHOCYTES RELATIVE PERCENT (BEAKER) (test 12 % rlhv=093) MONOCYTES RELATIVE PERCENT (BEAKER) (test 14 % ogfa=114) EOSINOPHILS RELATIVE PERCENT (BEAKER) (test 4 % tofg=631) BASOPHILS RELATIVE PERCENT (BEAKER) (test 0 % mfrq=662) NEUTROPHILS ABSOLUTE COUNT (BEAKER) (test 3.12 K/ L 1.78-5.38 juyl=618) LYMPHOCYTES ABSOLUTE COUNT (BEAKER) (test 0.55 K/ L 1.32-3.57 lnwo=316) MONOCYTES ABSOLUTE COUNT (BEAKER) (test huyu=829) 0.62 K/ L 0.30-0.82 EOSINOPHILS ABSOLUTE COUNT (BEAKER) (test 0.18 K/ L 0.04-0.54 vvkm=374) BASOPHILS ABSOLUTE COUNT (BEAKER) (test cmim=168) 0.00 K/ L 0.01-0.08 IMMATURE GRANULOCYTES-RELATIVE PERCENT (BEAKER) 1 % 0-1 (test upiy=0039) [id number] 06:41:00 Test Item Value Reference Range Comments PHOSPHORUS (BEAKER) (test omkf=285) 2.7 mg/dL 2.3-4.7 [id number] 06:41:00 Test Item Value Reference Range Comments MAGNESIUM (BEAKER) (test cbbs=829) 2.0 mg/dL 1.6-2.6 COMPREHENSIVE METABOLIC [id number] 06:41:00 Test Item Value Reference Range Comments TOTAL PROTEIN (BEAKER) 4.9 gm/dL 6.0-8.3 (test pwsk=779) ALBUMIN (BEAKER) (test 3.1 g/dL 3.5-5.0 ctlq=6340) ALKALINE PHOSPHATASE 148 U/L 40-150 (BEAKER) (test zzup=804) BILIRUBIN TOTAL (BEAKER) 1.9 mg/dL 0.2-1.2 (test cyoq=246) SODIUM (BEAKER) (test 123 meq/L 136-145 hbje=141) POTASSIUM (BEAKER) (test 3.9 meq/L 3.5-5.1 uexe=214) CHLORIDE (BEAKER) (test 94 meq/L 98-107 zqsy=963) CO2 (BEAKER) (test 22 meq/L 22-29 igyf=135) BLOOD UREA NITROGEN 24 mg/dL 7-21 (BEAKER) (test njlx=053) CREATININE (BEAKER) (test 1.55 mg/dL 0.57-1.25 tkdr=501) GLUCOSE RANDOM (BEAKER) 95 mg/dL 70-105 (test xsuw=630) CALCIUM (BEAKER) (test 8.5 mg/dL 8.4-10.2 khba=216) AST (SGOT) (BEAKER) (test 18 U/L 5-34 sgzu=971) ALT (SGPT) (BEAKER) (test 10 U/L 6-55 denz=798) EGFR (BEAKER) (test 47 mL/min/1.73 sq m ESTIMATED GFR IS NOT krrt=3004) ACCURATE CREATININE CLEARANCE IN PREDICTING GLOMERULAR FILTRATION RATE. ESTIMATED GFR IS NOT APPLICABLE FOR DIALYSIS PATIENTS. BILIRUBIN, [id number] 06:41:00 Test Item Value Reference Range Comments BILIRUBIN DIRECT (BEAKER) (test suwa=028) 1.3 mg/dL 0.1-0.5 PROTHROMBIN [id number] 06:26:00 Test Item Value Reference Range Comments PROTIME (BEAKER) (test kljs=680) 23.3 seconds 11.7-14.7 INR (BEAKER) (test qewn=748) 2.1 <=5.9 RECOMMENDED COUMADIN/WARFARIN INR THERAPY RANGESSTANDARD DOSE: 2.0 - 3.0 Includes: PROPHYLAXIS forvenous thrombosis, systemic embolization; TREATMENT for venous thrombosis and/or pulmonary embolus.HIGH RISK: Target INR is 2.5-3.5 for patients with mechanical heart valves.POCT-GLUCOSE [id number] 22:17:00 Test Item Value Reference Range Comments POC-GLUCOSE METER (BEAKER) 136 mg/dL 70-110 TESTED AT [facility] [address] [facility] (test fdir=3146) [place] [address] POCT-GLUCOSE [id number] 18:08:00 Test Item Value Reference Range Comments POC-GLUCOSE METER (BEAKER) 126 mg/dL 70-110 TESTED AT [address] (test ecmf=5591) [place] [address] U/S, [id number] 17:47:00Reason for exam:->ascitesFINAL REPORT Indication: Ascites. Technique: Ultrasound guided paracentesis. Findings:Preliminary ultrasound confirms ascites. A safe window was identified in the left lower quadrant. The procedure was explained to the patient and informed consent was signed. The skin was markedand prepped in standard sterile fashion. Lidocaine was used for local anesthesia. A 5 [place] needle catheter system was advanced into the peritoneal space. 5500 cc slightly cloudy yellow fluid was taken off. Patient tolerated the procedure well. Impression: Ultrasound guided paracentesis. Signed: Aristeo Xiongeport Verified Date/Time: 08/31/2018 17:47:54 Reading Location: [address] Ultrasound Reading Room POCT-GLUCOSE [id number] 11:52:00 Test Item Value Reference Range Comments POC-GLUCOSE METER (BEAKER) 151 mg/dL 70-110 TESTED AT [facility] [address] [facility] (test buts=3432) [facility] [address] POCT-GLUCOSE [id number] 08:19:00 Test Item Value Reference Range Comments POC-GLUCOSE METER (BEAKER) 129 mg/dL 70-110 TESTED AT [address] (test zwso=5890) [facility] [address] [id number] 05:12:00 Test Item Value Reference Range Comments PHOSPHORUS (BEAKER) (test amfe=444) 2.9 mg/dL 2.3-4.7 [id number] 05:12:00 Test Item Value Reference Range Comments MAGNESIUM (BEAKER) (test ahzp=288) 2.0 mg/dL 1.6-2.6 COMPREHENSIVE METABOLIC [id number] 05:12:00 Test Item Value Reference Range Comments TOTAL PROTEIN (BEAKER) 5.4 gm/dL 6.0-8.3 (test oljy=715) ALBUMIN (BEAKER) (test 3.2 g/dL 3.5-5.0 gtvn=0652) ALKALINE PHOSPHATASE 159 U/L 40-150 (BEAKER) (test oevb=396) BILIRUBIN TOTAL (BEAKER) 1.8 mg/dL 0.2-1.2 (test pyyh=125) SODIUM (BEAKER) (test 125 meq/L 136-145 rurp=253) POTASSIUM (BEAKER) (test 4.3 meq/L 3.5-5.1 ijyt=407) CHLORIDE (BEAKER) (test 97 meq/L 98-107 jaxb=641) CO2 (BEAKER) (test 22 meq/L 22-29 blky=234) BLOOD UREA NITROGEN 21 mg/dL 7-21 (BEAKER) (test dcxd=616) CREATININE (BEAKER) (test 1.34 mg/dL 0.57-1.25 hzsr=222) GLUCOSE RANDOM (BEAKER) 113 mg/dL 70-105 (test zfco=096) CALCIUM (BEAKER) (test 8.8 mg/dL 8.4-10.2 wgrw=375) AST (SGOT) (BEAKER) (test 22 U/L 5-34 mnba=598) ALT (SGPT) (BEAKER) (test 11 U/L 6-55 nyql=735) EGFR (BEAKER) (test 56 mL/min/1.73 sq m ESTIMATED GFR IS NOT ahxj=8820) ACCURATE CREATININE CLEARANCE IN PREDICTING GLOMERULAR FILTRATION RATE. ESTIMATED GFR IS NOT APPLICABLE FOR DIALYSIS PATIENTS. BILIRUBIN, [id number] 05:12:00 Test Item Value Reference Range Comments BILIRUBIN DIRECT (BEAKER) (test cgkz=791) 1.2 mg/dL 0.1-0.5 PROTHROMBIN [id number] 04:48:00 Test Item Value Reference Range Comments PROTIME (BEAKER) (test xzgu=546) 22.3 seconds 11.7-14.7 INR (BEAKER) (test jcpj=049) 2.0 <=5.9 RECOMMENDED COUMADIN/WARFARIN INR THERAPY RANGESSTANDARD DOSE: 2.0 - 3.0 Includes: PROPHYLAXIS forvenous thrombosis, systemic embolization; TREATMENT for venous thrombosis and/or pulmonary embolus.HIGH RISK: Target INR is 2.5-3.5 for patients with mechanical heart valves.CBC W/PLT COUNT & AUTO [id number] 04:33:00 Test Item Value Reference Range Comments WHITE BLOOD CELL COUNT (BEAKER) (test bzii=893) 5.5 K/ L 3.5-10.5 RED BLOOD CELL COUNT (BEAKER) (test dsbp=911) 2.58 M/ L 4.63-6.08 HEMOGLOBIN (BEAKER) (test upct=680) 7.9 GM/DL 13.7-17.5 HEMATOCRIT (BEAKER) (test fawk=134) 24.3 % 40.1-51.0 MEAN CORPUSCULAR VOLUME (BEAKER) (test vewv=974) 94.2 fL 79.0-92.2 MEAN CORPUSCULAR HEMOGLOBIN (BEAKER) (test 30.6 pg 25.7-32.2 tzjg=140) MEAN CORPUSCULAR HEMOGLOBIN CONC (BEAKER) (test 32.5 GM/DL 32.3-36.5 mmfs=462) RED CELL DISTRIBUTION WIDTH (BEAKER) (test 15.0 % 11.6-14.4 pgoj=171) PLATELET COUNT (BEAKER) (test uvtg=199) 57 K/CU MM 150-450 MEAN PLATELET VOLUME (BEAKER) (test oxiu=374) 9.2 fL 9.4-12.4 NUCLEATED RED BLOOD CELLS (BEAKER) (test 0 /100 WBC 0-0 mprg=673) NEUTROPHILS RELATIVE PERCENT (BEAKER) (test 70 % slip=288) LYMPHOCYTES RELATIVE PERCENT (BEAKER) (test 12 % qqpy=967) MONOCYTES RELATIVE PERCENT (BEAKER) (test 14 % wveo=066) EOSINOPHILS RELATIVE PERCENT (BEAKER) (test 4 % fpoe=191) BASOPHILS RELATIVE PERCENT (BEAKER) (test 0 % siqj=423) NEUTROPHILS ABSOLUTE COUNT (BEAKER) (test 3.85 K/ L 1.78-5.38 wlxk=499) LYMPHOCYTES ABSOLUTE COUNT (BEAKER) (test 0.67 K/ L 1.32-3.57 ipir=438) MONOCYTES ABSOLUTE COUNT (BEAKER) (test dauw=013) 0.75 K/ L 0.30-0.82 EOSINOPHILS ABSOLUTE COUNT (BEAKER) (test 0.22 K/ L 0.04-0.54 zhoz=066) BASOPHILS ABSOLUTE COUNT (BEAKER) (test lgsc=075) 0.01 K/ L 0.01-0.08 IMMATURE GRANULOCYTES-RELATIVE PERCENT (BEAKER) 1 % 0-1 (test mhjv=7700) BLOOD [id number] 23:01:00 Test Item Value Reference Range Comments CULTURE (BEAKER) (test qnrh=6640) No growth in 5 days POCT-GLUCOSE [id number] 22:15:00 Test Item Value Reference Range Comments POC-GLUCOSE METER (BEAKER) 133 mg/dL 70-110 TESTED AT [address] (test hppq=6850) [facility] [address] POCT-GLUCOSE [id number] 17:42:00 Test Item Value Reference Range Comments POC-GLUCOSE METER (BEAKER) 139 mg/dL 70-110 TESTED AT [address] (test jnoz=3092) [facility] [address] POCT-GLUCOSE [id number] 12:02:00 Test Item Value Reference Range Comments POC-GLUCOSE METER (BEAKER) 152 mg/dL 70-110 TESTED AT [address] (test wivp=0168) [place] [id number] POCT-GLUCOSE [id number] 09:04:00 Test Item Value Reference Range Comments POC-GLUCOSE METER (BEAKER) 130 mg/dL 70-110 TESTED AT [facility] [address] (test taka=2129) [facility] [address] CALCIUM, [id number] 07:27:00 Test Item Value Reference Range Comments CALCIUM IONIZED (BEAKER) (test wxcs=239) 1.10 mmol/L 1.12-1.27 PH, BLOOD (BEAKER) (test oxgr=5698) 7.42 [id number] 06:46:00 Test Item Value Reference Range Comments PHOSPHORUS (BEAKER) (test uobx=618) 3.0 mg/dL 2.3-4.7 [id number] 06:46:00 Test Item Value Reference Range Comments MAGNESIUM (BEAKER) (test vpdl=564) 2.0 mg/dL 1.6-2.6 COMPREHENSIVE METABOLIC [id number] 06:46:00 Test Item Value Reference Range Comments TOTAL PROTEIN (BEAKER) 4.9 gm/dL 6.0-8.3 (test ygsq=699) ALBUMIN (BEAKER) (test 3.0 g/dL 3.5-5.0 febk=2830) ALKALINE PHOSPHATASE 145 U/L 40-150 (BEAKER) (test lxib=567) BILIRUBIN TOTAL (BEAKER) 1.9 mg/dL 0.2-1.2 (test pfiw=200) SODIUM (BEAKER) (test 127 meq/L 136-145 dcth=193) POTASSIUM (BEAKER) (test 3.7 meq/L 3.5-5.1 kpeg=402) CHLORIDE (BEAKER) (test 99 meq/L 98-107 xqdx=131) CO2 (BEAKER) (test 21 meq/L 22-29 atsg=735) BLOOD UREA NITROGEN 20 mg/dL 7-21 (BEAKER) (test fxuj=700) CREATININE (BEAKER) (test 1.21 mg/dL 0.57-1.25 fcks=269) GLUCOSE RANDOM (BEAKER) 108 mg/dL 70-105 (test hotz=828) CALCIUM (BEAKER) (test 8.9 mg/dL 8.4-10.2 xwni=627) AST (SGOT) (BEAKER) (test 22 U/L 5-34 fbtf=197) ALT (SGPT) (BEAKER) (test 9 U/L 6-55 cqsr=770) EGFR (BEAKER) (test 63 mL/min/1.73 sq m ESTIMATED GFR IS NOT rymd=5627) ACCURATE CREATININE CLEARANCE IN PREDICTING GLOMERULAR FILTRATION RATE. ESTIMATED GFR IS NOT APPLICABLE FOR DIALYSIS PATIENTS. BASIC METABOLIC [id number] 06:46:00 Test Item Value Reference Range Comments SODIUM (BEAKER) (test 127 meq/L 136-145 wehx=906) POTASSIUM (BEAKER) (test 3.7 meq/L 3.5-5.1 jcky=630) CHLORIDE (BEAKER) (test 99 meq/L 98-107 zybv=896) CO2 (BEAKER) (test 21 meq/L 22-29 erot=704) BLOOD UREA NITROGEN 20 mg/dL 7-21 (BEAKER) (test fvvy=953) CREATININE (BEAKER) (test 1.21 mg/dL 0.57-1.25 wekb=228) GLUCOSE RANDOM (BEAKER) 108 mg/dL 70-105 (test rmrb=850) CALCIUM (BEAKER) (test 8.9 mg/dL 8.4-10.2 qvex=969) EGFR (BEAKER) (test 63 mL/min/1.73 sq m ESTIMATED GFR IS NOT ghfx=2155) ACCURATE CREATININE CLEARANCE IN PREDICTING GLOMERULAR FILTRATION RATE. ESTIMATED GFR IS NOT APPLICABLE FOR DIALYSIS PATIENTS. BILIRUBIN, [id number] 06:46:00 Test Item Value Reference Range Comments BILIRUBIN DIRECT (BEAKER) (test pkrz=054) 1.2 mg/dL 0.1-0.5 CBC W/PLT COUNT & AUTO [id number] 06:30:00 Test Item Value Reference Range Comments WHITE BLOOD CELL COUNT (BEAKER) (test gnzk=913) 3.7 K/ L 3.5-10.5 RED BLOOD CELL COUNT (BEAKER) (test ojoj=474) 2.35 M/ L 4.63-6.08 HEMOGLOBIN (BEAKER) (test jyqq=404) 7.4 GM/DL 13.7-17.5 HEMATOCRIT (BEAKER) (test pyam=824) 22.1 % 40.1-51.0 MEAN CORPUSCULAR VOLUME (BEAKER) (test lutq=296) 94.0 fL 79.0-92.2 MEAN CORPUSCULAR HEMOGLOBIN (BEAKER) (test 31.5 pg 25.7-32.2 zwpy=924) MEAN CORPUSCULAR HEMOGLOBIN CONC (BEAKER) (test 33.5 GM/DL 32.3-36.5 vduq=278) RED CELL DISTRIBUTION WIDTH (BEAKER) (test 14.8 % 11.6-14.4 bguy=289) PLATELET COUNT (BEAKER) (test yimx=939) 45 K/CU MM 150-450 MEAN PLATELET VOLUME (BEAKER) (test mmkn=339) 8.8 fL 9.4-12.4 NUCLEATED RED BLOOD CELLS (BEAKER) (test 0 /100 WBC 0-0 tewy=269) NEUTROPHILS RELATIVE PERCENT (BEAKER) (test 61 % ipvj=402) LYMPHOCYTES RELATIVE PERCENT (BEAKER) (test 14 % qkwc=065) MONOCYTES RELATIVE PERCENT (BEAKER) (test 18 % hmkg=562) EOSINOPHILS RELATIVE PERCENT (BEAKER) (test 6 % rgow=694) BASOPHILS RELATIVE PERCENT (BEAKER) (test 0 % enhw=588) NEUTROPHILS ABSOLUTE COUNT (BEAKER) (test 2.25 K/ L 1.78-5.38 zghr=174) LYMPHOCYTES ABSOLUTE COUNT (BEAKER) (test 0.53 K/ L 1.32-3.57 ghvb=290) MONOCYTES ABSOLUTE COUNT (BEAKER) (test hkov=805) 0.67 K/ L 0.30-0.82 EOSINOPHILS ABSOLUTE COUNT (BEAKER) (test 0.23 K/ L 0.04-0.54 jkux=363) BASOPHILS ABSOLUTE COUNT (BEAKER) (test ngww=837) 0.01 K/ L 0.01-0.08 IMMATURE GRANULOCYTES-RELATIVE PERCENT (BEAKER) 1 % 0-1 (test axqr=7345) PROTHROMBIN [id number] 06:07:00 Test Item Value Reference Range Comments PROTIME (BEAKER) (test ywla=424) 21.4 seconds 11.7-14.7 INR (BEAKER) (test qvzq=031) 1.9 <=5.9 RECOMMENDED COUMADIN/WARFARIN INR THERAPY RANGESSTANDARD DOSE: 2.0 - 3.0 Includes: PROPHYLAXIS forvenous thrombosis, systemic embolization; TREATMENT for venous thrombosis and/or pulmonary embolus.HIGH RISK: Target INR is 2.5-3.5 for patients with mechanical heart valves.POCT-GLUCOSE [id number] 23:37:00 Test Item Value Reference Range Comments POC-GLUCOSE METER (BEAKER) 154 mg/dL 70-110 TESTED AT [address] (test tssy=5231) [place] [address] BASIC METABOLIC [id number] 20:17:00 Test Item Value Reference Range Comments SODIUM (BEAKER) (test 125 meq/L 136-145 rxud=008) POTASSIUM (BEAKER) (test 4.0 meq/L 3.5-5.1 fbuz=548) CHLORIDE (BEAKER) (test 94 meq/L 98-107 adtu=206) CO2 (BEAKER) (test 25 meq/L 22-29 zwip=538) BLOOD UREA NITROGEN 20 mg/dL 7-21 (BEAKER) (test ahlr=044) CREATININE (BEAKER) (test 1.34 mg/dL 0.57-1.25 cjrn=350) GLUCOSE RANDOM (BEAKER) 115 mg/dL 70-105 (test qkjw=104) CALCIUM (BEAKER) (test 8.9 mg/dL 8.4-10.2 okhu=592) EGFR (BEAKER) (test 56 mL/min/1.73 sq m ESTIMATED GFR IS NOT edqm=6095) ACCURATE CREATININE CLEARANCE IN PREDICTING GLOMERULAR FILTRATION RATE. ESTIMATED GFR IS NOT APPLICABLE FOR DIALYSIS PATIENTS. POCT-GLUCOSE [id number] 17:59:00 Test Item Value Reference Range Comments POC-GLUCOSE METER (BEAKER) 161 mg/dL 70-110 TESTED AT [address] (test jdst=4688) [place] [address] BODY FLUID CULTURE + GRAM [id number] 13:31:00 Test Item Value Reference Range Comments CULTURE (BEAKER) (test fyac=1702) No growth GRAM STAIN RESULT (BEAKER) (test No organisms seen dyae=7154) GRAM STAIN RESULT (BEAKER) (test No White blood cells seen dywt=69996) POCT-GLUCOSE [id number] 12:31:00 Test Item Value Reference Range Comments POC-GLUCOSE METER (BEAKER) 114 mg/dL 70-110 TESTED AT [address] (test bkwr=0250) [place] [address] BASIC METABOLIC [id number] 11:33:00 Test Item Value Reference Range Comments SODIUM (BEAKER) (test 124 meq/L 136-145 wuqz=520) POTASSIUM (BEAKER) (test 4.1 meq/L 3.5-5.1 veiy=734) CHLORIDE (BEAKER) (test 94 meq/L 98-107 yswp=039) CO2 (BEAKER) (test 23 meq/L 22-29 gwnf=110) BLOOD UREA NITROGEN 20 mg/dL 7-21 (BEAKER) (test wqtg=669) CREATININE (BEAKER) (test 1.22 mg/dL 0.57-1.25 gpcd=740) GLUCOSE RANDOM (BEAKER) 94 mg/dL 70-105 (test mktw=216) CALCIUM (BEAKER) (test 8.8 mg/dL 8.4-10.2 pzzq=356) EGFR (BEAKER) (test 62 mL/min/1.73 sq m ESTIMATED GFR IS NOT tvmf=9659) ACCURATE CREATININE CLEARANCE IN PREDICTING GLOMERULAR FILTRATION RATE. ESTIMATED GFR IS NOT APPLICABLE FOR DIALYSIS PATIENTS. [id number] 09:24:00 Test Item Value Reference Range Comments FERRITIN (BEAKER) (test gmun=771) 1685 ng/mL 5-275 POCT-GLUCOSE [id number] 07:59:00 Test Item Value Reference Range Comments POC-GLUCOSE METER (BEAKER) 225 mg/dL 70-110 TESTED AT [address] (test bdkj=3676) [facility] [address] IRON, TIBC, % SAT. (WITHOUT FERRITIN)[id number] 07:54:00 Test Item Value Reference Range Comments IRON (BEAKER) (test ggzg=175) 98 ug/dL 40-160 TOTAL IRON BINDING CAPACITY (BEAKER) (test 90 ug/dL 250-450 hjla=853) IRON % SATURATION (2) (BEAKER) (test jhnx=7013) 109 % 20-55 CALCIUM, [id number] 07:13:00 Test Item Value Reference Range Comments CALCIUM IONIZED (BEAKER) (test nzip=777) 1.10 mmol/L 1.12-1.27 PH, BLOOD (BEAKER) (test rvby=8920) 7.37 [id number] 06:32:00 Test Item Value Reference Range Comments PHOSPHORUS (BEAKER) (test eixi=356) 2.6 mg/dL 2.3-4.7 [id number] 06:32:00 Test Item Value Reference Range Comments MAGNESIUM (BEAKER) (test cztu=056) 1.8 mg/dL 1.6-2.6 COMPREHENSIVE METABOLIC [id number] 06:32:00 Test Item Value Reference Range Comments TOTAL PROTEIN (BEAKER) 5.0 gm/dL 6.0-8.3 (test yait=056) ALBUMIN (BEAKER) (test 3.2 g/dL 3.5-5.0 uogy=6364) ALKALINE PHOSPHATASE 138 U/L 40-150 (BEAKER) (test ryad=812) BILIRUBIN TOTAL (BEAKER) 2.1 mg/dL 0.2-1.2 (test umar=624) SODIUM (BEAKER) (test 126 meq/L 136-145 nzgv=105) POTASSIUM (BEAKER) (test 4.0 meq/L 3.5-5.1 lexx=358) CHLORIDE (BEAKER) (test 95 meq/L 98-107 vpnz=122) CO2 (BEAKER) (test 23 meq/L 22-29 neqs=864) BLOOD UREA NITROGEN 21 mg/dL 7-21 (BEAKER) (test ecjb=736) CREATININE (BEAKER) (test 1.15 mg/dL 0.57-1.25 tluq=882) GLUCOSE RANDOM (BEAKER) 110 mg/dL 70-105 (test jdek=739) CALCIUM (BEAKER) (test 8.8 mg/dL 8.4-10.2 dvlv=066) AST (SGOT) (BEAKER) (test 22 U/L 5-34 rwdd=257) ALT (SGPT) (BEAKER) (test 11 U/L 6-55 jkhn=697) EGFR (BEAKER) (test 67 mL/min/1.73 sq m ESTIMATED GFR IS NOT rqyr=6307) ACCURATE CREATININE CLEARANCE IN PREDICTING GLOMERULAR FILTRATION RATE. ESTIMATED GFR IS NOT APPLICABLE FOR DIALYSIS PATIENTS. BASIC METABOLIC [id number] 06:32:00 Test Item Value Reference Range Comments SODIUM (BEAKER) (test 126 meq/L 136-145 nzrf=350) POTASSIUM (BEAKER) (test 4.0 meq/L 3.5-5.1 ieex=759) CHLORIDE (BEAKER) (test 95 meq/L 98-107 mqiw=507) CO2 (BEAKER) (test 23 meq/L 22-29 gdig=158) BLOOD UREA NITROGEN 21 mg/dL 7-21 (BEAKER) (test skov=071) CREATININE (BEAKER) (test 1.15 mg/dL 0.57-1.25 rrug=473) GLUCOSE RANDOM (BEAKER) 110 mg/dL 70-105 (test rjeu=305) CALCIUM (BEAKER) (test 8.8 mg/dL 8.4-10.2 xmcu=016) EGFR (BEAKER) (test 67 mL/min/1.73 sq m ESTIMATED GFR IS NOT laqq=5869) ACCURATE CREATININE CLEARANCE IN PREDICTING GLOMERULAR FILTRATION RATE. ESTIMATED GFR IS NOT APPLICABLE FOR DIALYSIS PATIENTS. BILIRUBIN, [id number] 06:32:00 Test Item Value Reference Range Comments BILIRUBIN DIRECT (BEAKER) (test aonj=552) 1.4 mg/dL 0.1-0.5 PROTHROMBIN [id number] 05:44:00 Test Item Value Reference Range Comments PROTIME (BEAKER) (test mfkh=197) 20.9 seconds 11.7-14.7 INR (BEAKER) (test ukwd=862) 1.8 <=5.9 RECOMMENDED COUMADIN/WARFARIN INR THERAPY RANGESSTANDARD DOSE: 2.0 - 3.0 Includes: PROPHYLAXIS forvenous thrombosis, systemic embolization; TREATMENT for venous thrombosis and/or pulmonary embolus.HIGH RISK: Target INR is 2.5-3.5 for patients with mechanical heart valves.CBC W/PLT COUNT & AUTO [id number] 05:43:00 Test Item Value Reference Range Comments WHITE BLOOD CELL COUNT (BEAKER) (test qhkp=075) 4.0 K/ L 3.5-10.5 RED BLOOD CELL COUNT (BEAKER) (test weaa=765) 2.30 M/ L 4.63-6.08 HEMOGLOBIN (BEAKER) (test wggi=339) 7.5 GM/DL 13.7-17.5 HEMATOCRIT (BEAKER) (test ilnq=152) 22.0 % 40.1-51.0 MEAN CORPUSCULAR VOLUME (BEAKER) (test qmjh=229) 95.7 fL 79.0-92.2 MEAN CORPUSCULAR HEMOGLOBIN (BEAKER) (test 32.6 pg 25.7-32.2 twds=075) MEAN CORPUSCULAR HEMOGLOBIN CONC (BEAKER) (test 34.1 GM/DL 32.3-36.5 csdh=626) RED CELL DISTRIBUTION WIDTH (BEAKER) (test 14.8 % 11.6-14.4 figp=367) PLATELET COUNT (BEAKER) (test dauq=790) 51 K/CU MM 150-450 MEAN PLATELET VOLUME (BEAKER) (test dvwx=635) 8.8 fL 9.4-12.4 NUCLEATED RED BLOOD CELLS (BEAKER) (test 0 /100 WBC 0-0 jcle=410) NEUTROPHILS RELATIVE PERCENT (BEAKER) (test 61 % xpoa=626) LYMPHOCYTES RELATIVE PERCENT (BEAKER) (test 12 % sqxg=104) MONOCYTES RELATIVE PERCENT (BEAKER) (test 19 % tath=212) EOSINOPHILS RELATIVE PERCENT (BEAKER) (test 7 % tgxh=610) BASOPHILS RELATIVE PERCENT (BEAKER) (test 0 % nwcm=983) NEUTROPHILS ABSOLUTE COUNT (BEAKER) (test 2.43 K/ L 1.78-5.38 sqfy=574) LYMPHOCYTES ABSOLUTE COUNT (BEAKER) (test 0.49 K/ L 1.32-3.57 polr=559) MONOCYTES ABSOLUTE COUNT (BEAKER) (test gfno=812) 0.75 K/ L 0.30-0.82 EOSINOPHILS ABSOLUTE COUNT (BEAKER) (test 0.29 K/ L 0.04-0.54 mngq=431) BASOPHILS ABSOLUTE COUNT (BEAKER) (test ivmg=337) 0.00 K/ L 0.01-0.08 IMMATURE GRANULOCYTES-RELATIVE PERCENT (BEAKER) 1 % 0-1 (test lbdn=0825) POCT-GLUCOSE [id number] 22:23:00 Test Item Value Reference Range Comments POC-GLUCOSE METER (BEAKER) 166 mg/dL 70-110 TESTED AT [address] (test ukoo=7653) [facility] [address] POCT-GLUCOSE [id number] 16:12:00 Test Item Value Reference Range Comments POC-GLUCOSE METER (BEAKER) 110 mg/dL 70-110 TESTED AT [address] (test ykqc=8761) [facility] [address] PTH, [id number] 15:57:00 Test Item Value Reference Range Comments PARATHYROID HORMONE INTACT (BEAKER) (test 26.2 pg/mL 8.5-72.5 rjkw=543) GAMMA GLUTAMYL TRANSFERASE (GGT)2018-08-28 15:51:00 Test Item Value Reference Range Comments GAMMA GLUTAMYL TRANSFERASE (BEAKER) (test dzyt=453) 11 U/L 9-64 BASIC METABOLIC [id number] 15:49:00 Test Item Value Reference Range Comments SODIUM (BEAKER) (test 127 meq/L 136-145 mezs=511) POTASSIUM (BEAKER) (test 3.6 meq/L 3.5-5.1 ajgs=331) CHLORIDE (BEAKER) (test 97 meq/L 98-107 socy=094) CO2 (BEAKER) (test 23 meq/L 22-29 frse=859) BLOOD UREA NITROGEN 20 mg/dL 7-21 (BEAKER) (test twbv=489) CREATININE (BEAKER) (test 1.19 mg/dL 0.57-1.25 wgcv=958) GLUCOSE RANDOM (BEAKER) 123 mg/dL 70-105 (test ihtt=354) CALCIUM (BEAKER) (test 8.6 mg/dL 8.4-10.2 rzph=749) EGFR (BEAKER) (test 64 mL/min/1.73 sq m ESTIMATED GFR IS NOT jzqi=5332) ACCURATE CREATININE CLEARANCE IN PREDICTING GLOMERULAR FILTRATION RATE. ESTIMATED GFR IS NOT APPLICABLE FOR DIALYSIS PATIENTS. VITAMIN D, [id number] 15:24:00 Test Item Value Reference Range Comments VITAMIN D 25-OH (BEAKER) (test xdzr=3053) 11.2 ng/mL 6.6-49.9 Effective 08/06/2017: Reference Range ChangeNew: 6.6-49.9 ng/mL Previous: 13.0 -47.8 ng/mLRecommended Vitamin D Target Range: 30.0-40.0 ng/mLPOCT-GLUCOSE [id number] 12:35:00 Test Item Value Reference Range Comments POC-GLUCOSE METER (BEAKER) 138 mg/dL 70-110 TESTED AT [facility] [address] [facility] (test lhho=7937) [facility] [address] BASIC METABOLIC [id number] 09:59:00 Test Item Value Reference Range Comments SODIUM (BEAKER) (test 130 meq/L 136-145 zbtu=273) POTASSIUM (BEAKER) (test 4.1 meq/L 3.5-5.1 plww=951) CHLORIDE (BEAKER) (test 99 meq/L 98-107 yqjp=403) CO2 (BEAKER) (test 24 meq/L 22-29 bxbk=239) BLOOD UREA NITROGEN 22 mg/dL 7-21 (BEAKER) (test rdak=524) CREATININE (BEAKER) (test 1.31 mg/dL 0.57-1.25 jgtb=739) GLUCOSE RANDOM (BEAKER) 121 mg/dL 70-105 (test zdar=134) CALCIUM (BEAKER) (test 9.4 mg/dL 8.4-10.2 xxyt=932) EGFR (BEAKER) (test 57 mL/min/1.73 sq m ESTIMATED GFR IS NOT bpuu=8898) ACCURATE CREATININE CLEARANCE IN PREDICTING GLOMERULAR FILTRATION RATE. ESTIMATED GFR IS NOT APPLICABLE FOR DIALYSIS PATIENTS. POCT-GLUCOSE [id number] 08:17:00 Test Item Value Reference Range Comments POC-GLUCOSE METER (BEAKER) 131 mg/dL 70-110 TESTED AT [address] (test gjeu=7869) [facility] [address] CALCIUM, [id number] 06:01:00 Test Item Value Reference Range Comments CALCIUM IONIZED (BEAKER) (test qzzw=522) 1.06 mmol/L 1.12-1.27 PH, BLOOD (BEAKER) (test oblw=3141) 7.42 [id number] 05:52:00 Test Item Value Reference Range Comments PHOSPHORUS (BEAKER) (test bijd=769) 3.1 mg/dL 2.3-4.7 [id number] 05:52:00 Test Item Value Reference Range Comments MAGNESIUM (BEAKER) (test yvhv=263) 2.3 mg/dL 1.6-2.6 BASIC METABOLIC [id number] 05:52:00 Test Item Value Reference Range Comments SODIUM (BEAKER) (test 130 meq/L 136-145 bger=167) POTASSIUM (BEAKER) (test 3.8 meq/L 3.5-5.1 eksc=426) CHLORIDE (BEAKER) (test 98 meq/L 98-107 cmpm=170) CO2 (BEAKER) (test 22 meq/L 22-29 uwpb=693) BLOOD UREA NITROGEN 22 mg/dL 7-21 (BEAKER) (test pnhv=151) CREATININE (BEAKER) (test 1.37 mg/dL 0.57-1.25 wnkj=274) GLUCOSE RANDOM (BEAKER) 118 mg/dL 70-105 (test kxud=857) CALCIUM (BEAKER) (test 9.6 mg/dL 8.4-10.2 ejmy=159) EGFR (BEAKER) (test 54 mL/min/1.73 sq m ESTIMATED GFR IS NOT yaup=5115) ACCURATE CREATININE CLEARANCE IN PREDICTING GLOMERULAR FILTRATION RATE. ESTIMATED GFR IS NOT APPLICABLE FOR DIALYSIS PATIENTS. Specimen slightly ictericCOMPREHENSIVE METABOLIC [id number] 05:52:00 Test Item Value Reference Range Comments TOTAL PROTEIN (BEAKER) 5.6 gm/dL 6.0-8.3 (test uwaq=247) ALBUMIN (BEAKER) (test 3.6 g/dL 3.5-5.0 ezxm=2378) ALKALINE PHOSPHATASE 146 U/L 40-150 (BEAKER) (test neaq=757) BILIRUBIN TOTAL (BEAKER) 2.5 mg/dL 0.2-1.2 (test invn=745) SODIUM (BEAKER) (test 130 meq/L 136-145 bzcb=721) POTASSIUM (BEAKER) (test 3.8 meq/L 3.5-5.1 lwxv=535) CHLORIDE (BEAKER) (test 98 meq/L 98-107 tzvn=223) CO2 (BEAKER) (test 22 meq/L 22-29 fbla=055) BLOOD UREA NITROGEN 22 mg/dL 7-21 (BEAKER) (test ntty=381) CREATININE (BEAKER) (test 1.37 mg/dL 0.57-1.25 jhxu=876) GLUCOSE RANDOM (BEAKER) 118 mg/dL 70-105 (test ivup=201) CALCIUM (BEAKER) (test 9.6 mg/dL 8.4-10.2 aqtk=003) AST (SGOT) (BEAKER) (test 25 U/L 5-34 kxzh=755) ALT (SGPT) (BEAKER) (test 10 U/L 6-55 snsr=726) EGFR (BEAKER) (test 54 mL/min/1.73 sq m ESTIMATED GFR IS NOT ftbd=1613) ACCURATE CREATININE CLEARANCE IN PREDICTING GLOMERULAR FILTRATION RATE. ESTIMATED GFR IS NOT APPLICABLE FOR DIALYSIS PATIENTS. Specimen slightly ictericBILIRUBIN, [id number] 05:52:00 Test Item Value Reference Range Comments BILIRUBIN DIRECT (BEAKER) (test jfde=136) 1.6 mg/dL 0.1-0.5 PROTHROMBIN [id number] 05:41:00 Test Item Value Reference Range Comments PROTIME (BEAKER) (test gwjq=525) 21.3 seconds 11.7-14.7 INR (BEAKER) (test tmww=468) 1.8 <=5.9 RECOMMENDED COUMADIN/WARFARIN INR THERAPY RANGESSTANDARD DOSE: 2.0 - 3.0 Includes: PROPHYLAXIS forvenous thrombosis, systemic embolization; TREATMENT for venous thrombosis and/or pulmonary embolus.HIGH RISK: Target INR is 2.5-3.5 for patients with mechanical heart valves.CBC W/PLT COUNT & AUTO [id number] 05:32:00 Test Item Value Reference Range Comments WHITE BLOOD CELL COUNT (BEAKER) (test llaw=013) 5.0 K/ L 3.5-10.5 RED BLOOD CELL COUNT (BEAKER) (test gwnh=109) 2.53 M/ L 4.63-6.08 HEMOGLOBIN (BEAKER) (test zbzf=066) 8.1 GM/DL 13.7-17.5 HEMATOCRIT (BEAKER) (test wasj=728) 23.6 % 40.1-51.0 MEAN CORPUSCULAR VOLUME (BEAKER) (test aoyf=653) 93.3 fL 79.0-92.2 MEAN CORPUSCULAR HEMOGLOBIN (BEAKER) (test 32.0 pg 25.7-32.2 xmyv=968) MEAN CORPUSCULAR HEMOGLOBIN CONC (BEAKER) (test 34.3 GM/DL 32.3-36.5 aojb=623) RED CELL DISTRIBUTION WIDTH (BEAKER) (test 14.6 % 11.6-14.4 sdje=912) PLATELET COUNT (BEAKER) (test pwrp=290) 73 K/CU MM 150-450 MEAN PLATELET VOLUME (BEAKER) (test glsm=135) 8.8 fL 9.4-12.4 NUCLEATED RED BLOOD CELLS (BEAKER) (test 0 /100 WBC 0-0 bdqy=705) NEUTROPHILS RELATIVE PERCENT (BEAKER) (test 71 % gdat=352) LYMPHOCYTES RELATIVE PERCENT (BEAKER) (test 10 % opfr=350) MONOCYTES RELATIVE PERCENT (BEAKER) (test 16 % buax=701) EOSINOPHILS RELATIVE PERCENT (BEAKER) (test 3 % cnks=094) BASOPHILS RELATIVE PERCENT (BEAKER) (test 0 % cjpc=768) NEUTROPHILS ABSOLUTE COUNT (BEAKER) (test 3.56 K/ L 1.78-5.38 coie=718) LYMPHOCYTES ABSOLUTE COUNT (BEAKER) (test 0.48 K/ L 1.32-3.57 qtkb=299) MONOCYTES ABSOLUTE COUNT (BEAKER) (test rull=373) 0.80 K/ L 0.30-0.82 EOSINOPHILS ABSOLUTE COUNT (BEAKER) (test 0.13 K/ L 0.04-0.54 mhye=662) BASOPHILS ABSOLUTE COUNT (BEAKER) (test ezze=616) 0.01 K/ L 0.01-0.08 IMMATURE GRANULOCYTES-RELATIVE PERCENT (BEAKER) 1 % 0-1 (test trgt=7448) POCT-GLUCOSE [id number] 21:24:00 Test Item Value Reference Range Comments POC-GLUCOSE METER (BEAKER) 137 mg/dL 70-110 TESTED AT [address] (test xpxq=3080) [place] [address] POCT-GLUCOSE [id number] 17:52:00 Test Item Value Reference Range Comments POC-GLUCOSE METER (BEAKER) 166 mg/dL 70-110 TESTED AT [address] (test besy=5148) [place] [address] BASIC METABOLIC [id number] 17:48:00 Test Item Value Reference Range Comments SODIUM (BEAKER) (test 128 meq/L 136-145 jgwy=125) POTASSIUM (BEAKER) (test 4.0 meq/L 3.5-5.1 bmeh=212) CHLORIDE (BEAKER) (test 97 meq/L 98-107 aqnk=222) CO2 (BEAKER) (test 23 meq/L 22-29 qmsj=878) BLOOD UREA NITROGEN 24 mg/dL 7-21 (BEAKER) (test gvbp=280) CREATININE (BEAKER) (test 1.25 mg/dL 0.57-1.25 numl=319) GLUCOSE RANDOM (BEAKER) 123 mg/dL 70-105 (test khch=081) CALCIUM (BEAKER) (test 8.9 mg/dL 8.4-10.2 mxcy=690) EGFR (BEAKER) (test 60 mL/min/1.73 sq m ESTIMATED GFR IS NOT pizs=0303) ACCURATE CREATININE CLEARANCE IN PREDICTING GLOMERULAR FILTRATION RATE. ESTIMATED GFR IS NOT APPLICABLE FOR DIALYSIS PATIENTS. POCT-GLUCOSE [id number] 12:18:00 Test Item Value Reference Range Comments POC-GLUCOSE METER (BEAKER) 152 mg/dL 70-110 TESTED AT [address] (test mrqj=8417) [place] [address] POCT-GLUCOSE [id number] 09:31:00 Test Item Value Reference Range Comments POC-GLUCOSE METER (BEAKER) 142 mg/dL 70-110 TESTED AT [address] (test lhwm=3302) [place] [address] BASIC METABOLIC [id number] 09:03:00 Test Item Value Reference Range Comments SODIUM (BEAKER) (test 125 meq/L 136-145 phwi=231) POTASSIUM (BEAKER) (test 5.1 meq/L 3.5-5.1 Specimen slightly yexm=542) hemolyzed CHLORIDE (BEAKER) (test 95 meq/L 98-107 vmsv=877) CO2 (BEAKER) (test 23 meq/L 22-29 yjaw=057) BLOOD UREA NITROGEN 26 mg/dL 7-21 (BEAKER) (test otxs=368) CREATININE (BEAKER) (test 1.25 mg/dL 0.57-1.25 Specimen slightly zsty=732) hemolyzed GLUCOSE RANDOM (BEAKER) 99 mg/dL 70-105 (test yfll=353) CALCIUM (BEAKER) (test 9.0 mg/dL 8.4-10.2 uviw=024) EGFR (BEAKER) (test 60 mL/min/1.73 sq m ESTIMATED GFR IS NOT loae=2603) ACCURATE CREATININE CLEARANCE IN PREDICTING GLOMERULAR FILTRATION RATE. ESTIMATED GFR IS NOT APPLICABLE FOR DIALYSIS PATIENTS. POCT-GLUCOSE [id number] 08:38:00 Test Item Value Reference Range Comments POC-GLUCOSE METER (BEAKER) 171 mg/dL 70-110 TESTED AT [address] (test ykci=8539) [place] [address] [id number] 05:30:00 Test Item Value Reference Range Comments PHOSPHORUS (BEAKER) (test wwtz=862) 2.9 mg/dL 2.3-4.7 [id number] 05:30:00 Test Item Value Reference Range Comments MAGNESIUM (BEAKER) (test zkuo=968) 2.2 mg/dL 1.6-2.6 COMPREHENSIVE METABOLIC [id number] 05:30:00 Test Item Value Reference Range Comments TOTAL PROTEIN (BEAKER) 5.2 gm/dL 6.0-8.3 (test cvao=569) ALBUMIN (BEAKER) (test 3.4 g/dL 3.5-5.0 foox=0287) ALKALINE PHOSPHATASE 134 U/L 40-150 (BEAKER) (test fipx=194) BILIRUBIN TOTAL (BEAKER) 2.3 mg/dL 0.2-1.2 (test tppg=448) SODIUM (BEAKER) (test 124 meq/L 136-145 qtdb=264) POTASSIUM (BEAKER) (test 4.9 meq/L 3.5-5.1 nxsa=347) CHLORIDE (BEAKER) (test 94 meq/L 98-107 dihi=895) CO2 (BEAKER) (test 24 meq/L 22-29 urvb=848) BLOOD UREA NITROGEN 27 mg/dL 7-21 (BEAKER) (test pisk=850) CREATININE (BEAKER) (test 1.27 mg/dL 0.57-1.25 hdwf=860) GLUCOSE RANDOM (BEAKER) 122 mg/dL 70-105 (test izfy=020) CALCIUM (BEAKER) (test 9.2 mg/dL 8.4-10.2 svrf=070) AST (SGOT) (BEAKER) (test 24 U/L 5-34 irdd=017) ALT (SGPT) (BEAKER) (test 10 U/L 6-55 ppao=325) EGFR (BEAKER) (test 59 mL/min/1.73 sq m ESTIMATED GFR IS NOT bzer=6031) ACCURATE CREATININE CLEARANCE IN PREDICTING GLOMERULAR FILTRATION RATE. ESTIMATED GFR IS NOT APPLICABLE FOR DIALYSIS PATIENTS. BILIRUBIN, [id number] 05:30:00 Test Item Value Reference Range Comments BILIRUBIN DIRECT (BEAKER) (test pzbm=754) 1.5 mg/dL 0.1-0.5 PROTHROMBIN [id number] 05:09:00 Test Item Value Reference Range Comments PROTIME (BEAKER) (test wekj=141) 22.3 seconds 11.7-14.7 INR (BEAKER) (test ovdn=804) 2.0 <=5.9 RECOMMENDED COUMADIN/WARFARIN INR THERAPY RANGESSTANDARD DOSE: 2.0 - 3.0 Includes: PROPHYLAXIS forvenous thrombosis, systemic embolization; TREATMENT for venous thrombosis and/or pulmonary embolus.HIGH RISK: Target INR is 2.5-3.5 for patients with mechanical heart valves.CBC W/PLT COUNT & AUTO [id number] 04:59:00 Test Item Value Reference Range Comments WHITE BLOOD CELL COUNT (BEAKER) (test uqyk=659) 5.0 K/ L 3.5-10.5 RED BLOOD CELL COUNT (BEAKER) (test hrlt=142) 2.24 M/ L 4.63-6.08 HEMOGLOBIN (BEAKER) (test ugdy=849) 7.2 GM/DL 13.7-17.5 HEMATOCRIT (BEAKER) (test nelq=075) 20.8 % 40.1-51.0 MEAN CORPUSCULAR VOLUME (BEAKER) (test zcnq=242) 92.9 fL 79.0-92.2 MEAN CORPUSCULAR HEMOGLOBIN (BEAKER) (test 32.1 pg 25.7-32.2 tusd=114) MEAN CORPUSCULAR HEMOGLOBIN CONC (BEAKER) (test 34.6 GM/DL 32.3-36.5 hqua=399) RED CELL DISTRIBUTION WIDTH (BEAKER) (test 14.2 % 11.6-14.4 oscf=324) PLATELET COUNT (BEAKER) (test wily=271) 56 K/CU MM 150-450 MEAN PLATELET VOLUME (BEAKER) (test awat=345) 8.9 fL 9.4-12.4 NUCLEATED RED BLOOD CELLS (BEAKER) (test 0 /100 WBC 0-0 louz=835) NEUTROPHILS RELATIVE PERCENT (BEAKER) (test 82 % jwzb=015) LYMPHOCYTES RELATIVE PERCENT (BEAKER) (test 5 % oziq=311) MONOCYTES RELATIVE PERCENT (BEAKER) (test 12 % zknq=319) EOSINOPHILS RELATIVE PERCENT (BEAKER) (test 0 % iozr=907) BASOPHILS RELATIVE PERCENT (BEAKER) (test 0 % xdjt=814) NEUTROPHILS ABSOLUTE COUNT (BEAKER) (test 4.12 K/ L 1.78-5.38 hrac=163) LYMPHOCYTES ABSOLUTE COUNT (BEAKER) (test 0.26 K/ L 1.32-3.57 uxgg=378) MONOCYTES ABSOLUTE COUNT (BEAKER) (test prjo=219) 0.59 K/ L 0.30-0.82 EOSINOPHILS ABSOLUTE COUNT (BEAKER) (test 0.00 K/ L 0.04-0.54 mdmu=140) BASOPHILS ABSOLUTE COUNT (BEAKER) (test obax=194) 0.00 K/ L 0.01-0.08 IMMATURE GRANULOCYTES-RELATIVE PERCENT (BEAKER) 1 % 0-1 (test xwoc=9285) CALCIUM, [id number] 04:57:00 Test Item Value Reference Range Comments CALCIUM IONIZED (BEAKER) (test egyj=208) 1.14 mmol/L 1.12-1.27 PH, BLOOD (BEAKER) (test utyg=7406) 7.39 POCT-GLUCOSE [id number] 00:41:00 Test Item Value Reference Range Comments POC-GLUCOSE METER (BEAKER) 186 mg/dL 70-110 TESTED AT [facility] [address] [facility] (test ggka=1950) [facility] [address] CORTISOL,60 [id number] 23:00:00 Test Item Value Reference Range Comments CORTISOL BASELINE NETWORKED (BEAKER) (test 7.5 mcg/dL wvfg=8730) CORTISOL 30 MINUTE NETWORKED (BEAKER) (test 14.1 mcg/dL sprc=0669) CORTISOL, 60 MINUTE (BEAKER) (test dkob=2158) 18.9 ug/dL ACTH STIMULATION TEST INTERPRETATION GUIDELINES(Synonyms: [...] serum cortisollevel 60 minutes after cosyntropin administration.CORTISOL,30 [id number] 22:05:00 Test Item Value Reference Range Comments CORTISOL BASELINE NETWORKED (BEAKER) (test 7.5 mcg/dL lmlw=1015) CORTISOL, 30 MINUTE (BEAKER) (test zccl=1962) 14.1 ug/dL ACTH STIMULATION TEST INTERPRETATION GUIDELINES(Synonyms: [...] cortisollevel 60 minutes after cosyntropin administration.BASIC METABOLIC [id number] 21:42:00 Test Item Value Reference Range Comments SODIUM (BEAKER) (test 123 meq/L 136-145 ngyy=444) POTASSIUM (BEAKER) (test 4.3 meq/L 3.5-5.1 vtfj=768) CHLORIDE (BEAKER) (test 93 meq/L 98-107 pakr=189) CO2 (BEAKER) (test 24 meq/L 22-29 kjid=126) BLOOD UREA NITROGEN 29 mg/dL 7-21 (BEAKER) (test zffa=081) CREATININE (BEAKER) (test 1.38 mg/dL 0.57-1.25 qucj=278) GLUCOSE RANDOM (BEAKER) 109 mg/dL 70-105 (test atfz=679) CALCIUM (BEAKER) (test 9.2 mg/dL 8.4-10.2 cuua=954) EGFR (BEAKER) (test 54 mL/min/1.73 sq m ESTIMATED GFR IS NOT sbhc=5707) ACCURATE CREATININE CLEARANCE IN PREDICTING GLOMERULAR FILTRATION RATE. ESTIMATED GFR IS NOT APPLICABLE FOR DIALYSIS PATIENTS. Call results to Dr Almendarez METABOLIC [id number] 18:03:00 Test Item Value Reference Range Comments SODIUM (BEAKER) (test 124 meq/L 136-145 mrhe=512) POTASSIUM (BEAKER) (test 4.6 meq/L 3.5-5.1 yazb=990) CHLORIDE (BEAKER) (test 93 meq/L 98-107 fqns=600) CO2 (BEAKER) (test 25 meq/L 22-29 full=042) BLOOD UREA NITROGEN 32 mg/dL 7-21 (BEAKER) (test hsxk=091) CREATININE (BEAKER) (test 1.40 mg/dL 0.57-1.25 frrp=641) GLUCOSE RANDOM (BEAKER) 94 mg/dL 70-105 (test kqnv=961) CALCIUM (BEAKER) (test 9.0 mg/dL 8.4-10.2 holk=994) EGFR (BEAKER) (test 53 mL/min/1.73 sq m ESTIMATED GFR IS NOT wutd=4896) ACCURATE CREATININE CLEARANCE IN PREDICTING GLOMERULAR FILTRATION RATE. ESTIMATED GFR IS NOT APPLICABLE FOR DIALYSIS PATIENTS. BODY FLUID CELL COUNT WITH [id number] 13:54:00 Test Item Value Reference Range Comments APPEARANCE FLUID (BEAKER) (test nkqn=456) Slightly Hazy Clear COLOR FLUID (BEAKER) (test vbqh=144) Yellow Colorless, Straw RBC FLUID (BEAKER) (test iwzg=853) 1000 /cu mm <=1 ADJUSTED WBC FLUID (BEAKER) (test qlvp=2234) 54 /cu mm <=5 LINING CELLS (BEAKER) (test vvgj=8714) 2 /cu mm <=1 NEUTROPHILS FLUID (BEAKER) (test eqeu=9262) 6 % LYMPHS FLUID (BEAKER) (test krvd=376) 25 % MONO/MACROPHAGE FLUID (BEAKER) (test 69 % lctc=655) EOSINOPHILS FLUID (BEAKER) (test vxfj=122) 0 % BASO FLUID (BEAKER) (test emrt=703) 0 % CONTAINER BODY FLUID (BEAKER) (test Sterile Vial dpef=8527) ALBUMIN, BODY [id number] 13:45:00 Test Item Value Reference Range Comments ALBUMIN FLUID (BEAKER) (test avdi=616) 0.8 gm/dL Reference Range: No Normals Assay performance has not been validated for this type of specimen.LACTATE DEHYDROGENASE (LDH), BODY [id number] 13:13:00 Test Item Value Reference Range Comments LACTATE DEHYDROGENASE FLUID (BEAKER) (test cwuv=416) < U/L Absence of reference range indicates that normals have not been defined.Assay performance has not been validated for this type of specimen.GLUCOSE, BODY [id number] 13:13:00 Test Item Value Reference Range Comments GLUCOSE, BODY FLUID (BEAKER) (test afck=1021) 82 mg/dL Absence of reference range indicates that normals have not been defined.Assay performance has not been validated for this type of specimen.TRIGLYCERIDES, BODY [id number] 13:10:00 Test Item Value Reference Range Comments TRIGLYCERIDES FLUID (BEAKER) (test grxj=533) 39 mg/dL Reference Range: No Normals Assay performance has not been validated for this type of specimen.PROTEIN, BODY [id number] 13:09:00 Test Item Value Reference Range Comments PROTEIN FLUID (BEAKER) (test tctj=797) 1.2 g/dL Absence of reference range indicates that normals have not been defined.Assay performance has not been validated for this type of specimen.CORTISOL, [id number] 12:52:00 Test Item Value Reference Range Comments CORTISOL, BASELINE (BEAKER) (test fpvd=2113) 7.5 ug/dL ACTH STIMULATION TEST INTERPRETATION GUIDELINES(Synonyms: [...] cortisollevel 60 minutes after cosyntropin administration.BASIC METABOLIC [id number] 12:40:00 Test Item Value Reference Range Comments SODIUM (BEAKER) (test 119 meq/L 136-145 fpyb=157) POTASSIUM (BEAKER) (test 5.2 meq/L 3.5-5.1 mjde=947) CHLORIDE (BEAKER) (test 90 meq/L 98-107 jerx=316) CO2 (BEAKER) (test 23 meq/L 22-29 tfao=387) BLOOD UREA NITROGEN 34 mg/dL 7-21 (BEAKER) (test nuni=450) CREATININE (BEAKER) (test 1.46 mg/dL 0.57-1.25 nneu=892) GLUCOSE RANDOM (BEAKER) 84 mg/dL 70-105 (test rqpd=274) CALCIUM (BEAKER) (test 8.8 mg/dL 8.4-10.2 uwzx=989) EGFR (BEAKER) (test 51 mL/min/1.73 sq m ESTIMATED GFR IS NOT qlxh=9744) ACCURATE CREATININE CLEARANCE IN PREDICTING GLOMERULAR FILTRATION RATE. ESTIMATED GFR IS NOT APPLICABLE FOR DIALYSIS PATIENTS. Specimen slightly ictericRAD, CHEST, 1 VIEW, NON [id number] 11:50:00Reason for exam:->coughShould this be performed at the bedside?->YesFINAL REPORT Chest one view compared to May 12, 2018 Discussion: There is diffuse interstitial prominence. No effusion or pneumothorax. Heart size normal. IMPRESSIONS: No changeSigned: Nisbet, Karina MDReport Verified Date/ Time: 08/26/2018 11:50:19 Reading Location: [facility] Radiology Reading Room BASIC METABOLIC [id number] 09:35:00 Test Item Value Reference Range Comments SODIUM (BEAKER) (test 119 meq/L 136-145 hvpu=625) POTASSIUM (BEAKER) (test 4.9 meq/L 3.5-5.1 kije=899) CHLORIDE (BEAKER) (test 89 meq/L 98-107 arhg=627) CO2 (BEAKER) (test 23 meq/L 22-29 hrsj=894) BLOOD UREA NITROGEN 36 mg/dL 7-21 (BEAKER) (test akzq=831) CREATININE (BEAKER) (test 1.46 mg/dL 0.57-1.25 jmlj=379) GLUCOSE RANDOM (BEAKER) 83 mg/dL 70-105 (test cnkt=061) CALCIUM (BEAKER) (test 8.8 mg/dL 8.4-10.2 xsaz=782) EGFR (BEAKER) (test 51 mL/min/1.73 sq m ESTIMATED GFR IS NOT rppy=0952) ACCURATE CREATININE CLEARANCE IN PREDICTING GLOMERULAR FILTRATION RATE. ESTIMATED GFR IS NOT APPLICABLE FOR DIALYSIS PATIENTS. POCT-GLUCOSE [id number] 05:56:00 Test Item Value Reference Range Comments POC-GLUCOSE METER (BEAKER) 86 mg/dL 70-110 TESTED AT [facility] [address] [facility] (test gsmq=8023) [facility] [address] CBC W/PLT COUNT & AUTO [id number] 04:42:00 Test Item Value Reference Range Comments WHITE BLOOD CELL COUNT (BEAKER) (test sjyp=159) 10.5 K/ L 3.5-10.5 RED BLOOD CELL COUNT (BEAKER) (test tnpr=021) 2.37 M/ L 4.63-6.08 HEMOGLOBIN (BEAKER) (test wvii=932) 7.4 GM/DL 13.7-17.5 HEMATOCRIT (BEAKER) (test cequ=111) 21.6 % 40.1-51.0 MEAN CORPUSCULAR VOLUME (BEAKER) (test syua=680) 91.1 fL 79.0-92.2 MEAN CORPUSCULAR HEMOGLOBIN (BEAKER) (test 31.2 pg 25.7-32.2 yjlx=033) MEAN CORPUSCULAR HEMOGLOBIN CONC (BEAKER) (test 34.3 GM/DL 32.3-36.5 lywe=376) RED CELL DISTRIBUTION WIDTH (BEAKER) (test 14.4 % 11.6-14.4 aglr=529) PLATELET COUNT (BEAKER) (test kptm=145) 67 K/CU MM 150-450 MEAN PLATELET VOLUME (BEAKER) (test qyce=432) 8.3 fL 9.4-12.4 NUCLEATED RED BLOOD CELLS (BEAKER) (test 0 /100 WBC 0-0 whkz=620) NEUTROPHILS RELATIVE PERCENT (BEAKER) (test 82 % suag=412) LYMPHOCYTES RELATIVE PERCENT (BEAKER) (test 4 % hhdh=182) MONOCYTES RELATIVE PERCENT (BEAKER) (test 12 % miro=057) EOSINOPHILS RELATIVE PERCENT (BEAKER) (test 1 % ekno=966) BASOPHILS RELATIVE PERCENT (BEAKER) (test 0 % iguv=685) NEUTROPHILS ABSOLUTE COUNT (BEAKER) (test 8.62 K/ L 1.78-5.38 ydul=370) LYMPHOCYTES ABSOLUTE COUNT (BEAKER) (test 0.45 K/ L 1.32-3.57 yvqz=356) MONOCYTES ABSOLUTE COUNT (BEAKER) (test mzyd=780) 1.31 K/ L 0.30-0.82 EOSINOPHILS ABSOLUTE COUNT (BEAKER) (test 0.10 K/ L 0.04-0.54 szdr=457) BASOPHILS ABSOLUTE COUNT (BEAKER) (test uozk=432) 0.00 K/ L 0.01-0.08 IMMATURE GRANULOCYTES-RELATIVE PERCENT (BEAKER) 1 % 0-1 (test zayz=9904) COMPREHENSIVE METABOLIC [id number] 04:36:00 Test Item Value Reference Range Comments TOTAL PROTEIN (BEAKER) 4.9 gm/dL 6.0-8.3 (test boqx=568) ALBUMIN (BEAKER) (test 2.8 g/dL 3.5-5.0 lipe=3534) ALKALINE PHOSPHATASE 146 U/L 40-150 (BEAKER) (test vuuj=611) BILIRUBIN TOTAL (BEAKER) 2.9 mg/dL 0.2-1.2 (test mkdr=286) SODIUM (BEAKER) (test 118 meq/L 136-145 zngn=748) POTASSIUM (BEAKER) (test 5.2 meq/L 3.5-5.1 aruy=794) CHLORIDE (BEAKER) (test 90 meq/L 98-107 vuci=451) CO2 (BEAKER) (test 23 meq/L 22-29 bdps=918) BLOOD UREA NITROGEN 37 mg/dL 7-21 (BEAKER) (test ilki=363) CREATININE (BEAKER) (test 1.47 mg/dL 0.57-1.25 uhwh=513) GLUCOSE RANDOM (BEAKER) 65 mg/dL 70-105 (test kwbn=538) CALCIUM (BEAKER) (test 8.9 mg/dL 8.4-10.2 zpbp=540) AST (SGOT) (BEAKER) (test 29 U/L 5-34 xqtm=936) ALT (SGPT) (BEAKER) (test 10 U/L 6-55 orlh=089) EGFR (BEAKER) (test 50 mL/min/1.73 sq m ESTIMATED GFR IS NOT caxs=5348) ACCURATE CREATININE CLEARANCE IN PREDICTING GLOMERULAR FILTRATION RATE. ESTIMATED GFR IS NOT APPLICABLE FOR DIALYSIS PATIENTS. Specimen slightly [id number] 04:33:00 Test Item Value Reference Range Comments PHOSPHORUS (BEAKER) (test lhxr=201) 3.1 mg/dL 2.3-4.7 [id number] 04:33:00 Test Item Value Reference Range Comments MAGNESIUM (BEAKER) (test idya=972) 2.1 mg/dL 1.6-2.6 CALCIUM, [id number] 04:05:00 Test Item Value Reference Range Comments CALCIUM IONIZED (BEAKER) (test xzgx=943) 1.13 mmol/L 1.12-1.27 PH, BLOOD (BEAKER) (test kzkk=8338) 7.38 BASIC METABOLIC [id number] 01:34:00 Test Item Value Reference Range Comments SODIUM (BEAKER) (test 117 meq/L 136-145 ozdx=769) POTASSIUM (BEAKER) (test 4.9 meq/L 3.5-5.1 fwmz=326) CHLORIDE (BEAKER) (test 89 meq/L 98-107 weyg=285) CO2 (BEAKER) (test 22 meq/L 22-29 xlpy=565) BLOOD UREA NITROGEN 37 mg/dL 7-21 (BEAKER) (test chnl=565) CREATININE (BEAKER) (test 1.52 mg/dL 0.57-1.25 vwhk=464) GLUCOSE RANDOM (BEAKER) 67 mg/dL 70-105 (test yuvc=241) CALCIUM (BEAKER) (test 9.1 mg/dL 8.4-10.2 kmeh=128) EGFR (BEAKER) (test 48 mL/min/1.73 sq m ESTIMATED GFR IS NOT sdrc=7795) ACCURATE CREATININE CLEARANCE IN PREDICTING GLOMERULAR FILTRATION RATE. ESTIMATED GFR IS NOT APPLICABLE FOR DIALYSIS PATIENTS. Specimen slightly ictericU/S, ABDOMINAL, [id number] 23:49:00Abdomen limited area? Add comment if clarification [...] [place] Verified Date/Time: 08/25/2018 23:49:36 Reading Location: [facility] C013Y CT Body Reading Room POCT-GLUCOSE [id number] 23:16:00 Test Item Value Reference Range Comments POC-GLUCOSE METER (BEAKER) 89 mg/dL 70-110 TESTED AT [facility] [address] [facility] (test ttts=9505) [facility] [address] COMPREHENSIVE METABOLIC [id number] 21:15:00 Test Item Value Reference Range Comments TOTAL PROTEIN (BEAKER) 5.4 gm/dL 6.0-8.3 (test fimo=564) ALBUMIN (BEAKER) (test 3.1 g/dL 3.5-5.0 bxxc=8353) ALKALINE PHOSPHATASE 164 U/L 40-150 (BEAKER) (test ulig=498) BILIRUBIN TOTAL (BEAKER) 3.1 mg/dL 0.2-1.2 (test hrqa=133) SODIUM (BEAKER) (test 116 meq/L 136-145 mehb=743) POTASSIUM (BEAKER) (test 5.0 meq/L 3.5-5.1 kfzf=076) CHLORIDE (BEAKER) (test 87 meq/L 98-107 woju=662) CO2 (BEAKER) (test 22 meq/L 22-29 twiv=979) BLOOD UREA NITROGEN 38 mg/dL 7-21 (BEAKER) (test ohve=659) CREATININE (BEAKER) (test 1.52 mg/dL 0.57-1.25 yykt=007) GLUCOSE RANDOM (BEAKER) 67 mg/dL 70-105 (test hkqd=541) CALCIUM (BEAKER) (test 9.1 mg/dL 8.4-10.2 luyf=986) AST (SGOT) (BEAKER) (test 30 U/L 5-34 wdbt=748) ALT (SGPT) (BEAKER) (test 10 U/L 6-55 yzxh=450) EGFR (BEAKER) (test 48 mL/min/1.73 sq m ESTIMATED GFR IS NOT huvz=0980) ACCURATE CREATININE CLEARANCE IN PREDICTING GLOMERULAR FILTRATION RATE. ESTIMATED GFR IS NOT APPLICABLE FOR DIALYSIS PATIENTS. Recheck and call Dr. Solorio with results [phone] slightly ictericBASIC METABOLIC [id number] 17:36:00 Test Item Value Reference Range Comments SODIUM (BEAKER) (test 119 meq/L 136-145 pjri=582) POTASSIUM (BEAKER) (test 5.0 meq/L 3.5-5.1 vczg=359) CHLORIDE (BEAKER) (test 89 meq/L 98-107 rxku=044) CO2 (BEAKER) (test 22 meq/L 22-29 gcvx=603) BLOOD UREA NITROGEN 38 mg/dL 7-21 (BEAKER) (test hwgr=571) CREATININE (BEAKER) (test 1.50 mg/dL 0.57-1.25 rzyr=382) GLUCOSE RANDOM (BEAKER) 70 mg/dL 70-105 (test iidp=122) CALCIUM (BEAKER) (test 8.9 mg/dL 8.4-10.2 kghl=251) EGFR (BEAKER) (test 49 mL/min/1.73 sq m ESTIMATED GFR IS NOT vwpd=6023) ACCURATE CREATININE CLEARANCE IN PREDICTING GLOMERULAR FILTRATION RATE. ESTIMATED GFR IS NOT APPLICABLE FOR DIALYSIS PATIENTS. Specimen slightly ictericCT, CHEST, WITH HIGH RESOLUTION, INTERSTITAL LUNG [id number] 17:36:00Reason for exam:->follow up for lung noduleFINAL [...] MDReport Verified Date/Time: 08/25/2018 17:36:51 Reading Location: [facility] B1 C013Y CT Body Reading Room CT, SPINE, LUMBAR, WO [id number] 17:06:00FINAL REPORT CT thoracic and lumbar spine [...] MDReport Verified Date/Time: 08/25/2018 17:06:21 Reading Location: [facility] Radiology Reading Room CT, SPINE, THORACIC, WO [id number] 17:06:00FINAL REPORT CT thoracic and lumbar spine [...] Verified Date/Time: 08/25/2018 17: 06:21 Reading Location: [facility] Radiology Reading Room EOSINOPHIL SMEAR, [id number] 16:40:00 Test Item Value Reference Range Comments EOSINOPHIL SMEAR, URINE (BEAKER) (test No EOS seen No EOS seen sizr=5678) SODIUM, RANDOM [id number] 15:13:00 Test Item Value Reference Range Comments SODIUM URINE (BEAKER) (test spmn=227) < meq/L Reference Range: No NormalsCOMPREHENSIVE METABOLIC [id number] 15:12:00 Test Item Value Reference Range Comments TOTAL PROTEIN (BEAKER) 5.0 gm/dL 6.0-8.3 (test vlej=319) ALBUMIN (BEAKER) (test 2.9 g/dL 3.5-5.0 vxxa=7963) ALKALINE PHOSPHATASE 154 U/L 40-150 (BEAKER) (test puzb=909) BILIRUBIN TOTAL (BEAKER) 3.1 mg/dL 0.2-1.2 (test lyyg=535) SODIUM (BEAKER) (test 116 meq/L 136-145 rfdq=960) POTASSIUM (BEAKER) (test 4.8 meq/L 3.5-5.1 yevr=970) CHLORIDE (BEAKER) (test 87 meq/L 98-107 bmsy=033) CO2 (BEAKER) (test 24 meq/L 22-29 wzly=981) BLOOD UREA NITROGEN 39 mg/dL 7-21 (BEAKER) (test lvxl=730) CREATININE (BEAKER) (test 1.53 mg/dL 0.57-1.25 vdlr=473) GLUCOSE RANDOM (BEAKER) 67 mg/dL 70-105 (test ukre=789) CALCIUM (BEAKER) (test 8.6 mg/dL 8.4-10.2 wtlw=602) AST (SGOT) (BEAKER) (test 24 U/L 5-34 fdzc=813) ALT (SGPT) (BEAKER) (test 11 U/L 6-55 muke=475) EGFR (BEAKER) (test 48 mL/min/1.73 sq m ESTIMATED GFR IS NOT aebs=7580) ACCURATE CREATININE CLEARANCE IN PREDICTING GLOMERULAR FILTRATION RATE. ESTIMATED GFR IS NOT APPLICABLE FOR DIALYSIS PATIENTS. Specimen slightly ictericPROTEIN, RANDOM [id number] 15:12:00 Test Item Value Reference Range Comments PROTEIN, URINE (BEAKER) (test wbau=7410) < mg/dL 0-14 CREATININE, RANDOM [id number] 15:10:00 Test Item Value Reference Range Comments CREATININE URINE (BEAKER) (test vxrg=066) 75.0 mg/dL Reference Range: No NormalsURINALYSIS W/ [id number] 14:55:00 Test Item Value Reference Range Comments COLOR (BEAKER) (test infr=277) Yellow CLARITY (BEAKER) (test flpc=335) Hazy SPECIFIC GRAVITY UA (BEAKER) (test rruc=881) 1.009 1.001-1.035 PH UA (BEAKER) (test fmys=218) 5.5 5.0-8.0 PROTEIN UA (BEAKER) (test vxrk=902) Negative Negative GLUCOSE UA (BEAKER) (test trxc=508) Negative Negative KETONES UA (BEAKER) (test gqmb=960) Negative Negative BILIRUBIN UA (BEAKER) (test hnya=538) Negative Negative BLOOD UA (BEAKER) (test ojwm=414) Small Negative NITRITE UA (BEAKER) (test odac=200) Negative Negative LEUKOCYTE ESTERASE UA (BEAKER) (test coli=168) Negative Negative UROBILINOGEN UA (BEAKER) (test jhqc=476) 0.2 mg/dL 0.2-1.0 RBC UA (BEAKER) (test chrx=677) 20 /HPF WBC UA (BEAKER) (test emsw=440) 27 /HPF SQUAMOUS EPITHELIAL (BEAKER) (test xphg=087) 18 /HPF SOURCE(BEAKER) (test wuvy=3438) URINALYSIS W/ REFLEX URINE [id number] 14:47:00 Test Item Value Reference Range Comments COLOR (BEAKER) (test syqh=840) Yellow CLARITY (BEAKER) (test mqny=816) Hazy SPECIFIC GRAVITY UA (BEAKER) (test gsew=976) 1.010 1.001-1.035 PH UA (BEAKER) (test wvlt=064) 5.5 5.0-8.0 PROTEIN UA (BEAKER) (test jbyw=358) Negative Negative GLUCOSE UA (BEAKER) (test yeop=319) Negative Negative KETONES UA (BEAKER) (test jxdm=486) Negative Negative BILIRUBIN UA (BEAKER) (test fiem=833) Negative Negative BLOOD UA (BEAKER) (test umgt=856) Small Negative NITRITE UA (BEAKER) (test wwqu=787) Negative Negative LEUKOCYTE ESTERASE UA (BEAKER) (test gsny=143) Negative Negative UROBILINOGEN UA (BEAKER) (test ndih=569) 0.2 mg/dL 0.2-1.0 RBC UA (BEAKER) (test prhz=232) 38 /HPF WBC UA (BEAKER) (test uwei=235) 7 /HPF SQUAMOUS EPITHELIAL (BEAKER) (test qhdi=652) 18 /HPF AMORPHOUS CRYSTALS (BEAKER) (test qvni=1487) Rare SOURCE(BEAKER) (test grdf=3343) OSMOLALITY, [id number] 14:40:00 Test Item Value Reference Range Comments OSMOLALITY URINE (BEAKER) (test glkb=219) 284 mOsm/kg 40-1,400 [id number] 13:34:00 Test Item Value Reference Range Comments PROCALCITONIN (BEAKER) (test jdjp=1637) 0.25 ng/mL <0.05 SEPSIS RISK (ng/mL)Low: 0.05-0.50Intermediate: 0.51-2.00High: & gt;=2.01OSMOLALITY, [id number] 12:43:00 Test Item Value Reference Range Comments OSMOLALITY URINE (BEAKER) (test rggu=714) 316 mOsm/kg 40-1,400 OSMOLALITY, [id number] 12:41:00 Test Item Value Reference Range Comments OSMOLALITY, SERUM (BEAKER) (test ihic=790) 259 mOsm/kg 275-295 TSH/FREE T4 IF [id number] 11:36:00 Test Item Value Reference Range Comments THYROID STIMULATING HORMONE (BEAKER) (test 2.55 uIU/mL 0.35-4.94 tczw=579) [id number] 11:34:00 Test Item Value Reference Range Comments CORTISOL, TOTAL (BEAKER) (test eehp=8628) 7.9 ug/dL 3.7-19.4 SODIUM, RANDOM [id number] 11:34:00 Test Item Value Reference Range Comments SODIUM URINE (BEAKER) (test awlj=494) < meq/L Reference Range: No NormalsBASIC METABOLIC [id number] 11:24:00 Test Item Value Reference Range Comments SODIUM (BEAKER) (test 113 meq/L 136-145 ewnd=936) POTASSIUM (BEAKER) (test 5.3 meq/L 3.5-5.1 jvhi=240) CHLORIDE (BEAKER) (test 86 meq/L 98-107 avwm=095) CO2 (BEAKER) (test 21 meq/L 22-29 uxex=685) BLOOD UREA NITROGEN 39 mg/dL 7-21 (BEAKER) (test sbdf=609) CREATININE (BEAKER) (test 1.57 mg/dL 0.57-1.25 vmdb=809) GLUCOSE RANDOM (BEAKER) 64 mg/dL 70-105 (test ratc=303) CALCIUM (BEAKER) (test 9.1 mg/dL 8.4-10.2 iude=623) EGFR (BEAKER) (test 46 mL/min/1.73 sq m ESTIMATED GFR IS NOT uopx=0620) ACCURATE CREATININE CLEARANCE IN PREDICTING GLOMERULAR FILTRATION RATE. ESTIMATED GFR IS NOT APPLICABLE FOR DIALYSIS PATIENTS. Specimen slightly ictericURIC [id number] 11:21:00 Test Item Value Reference Range Comments URIC ACID (BEAKER) (test qfmx=270) 8.2 mg/dL 2.6-7.2 Specimen slightly ictericCREATININE, RANDOM [id number] 11:21:00 Test Item Value Reference Range Comments CREATININE URINE (BEAKER) (test fvnp=040) 81.9 mg/dL Reference Range: No NormalsPOTASSIUM, RANDOM [id number] 11:21:00 Test Item Value Reference Range Comments POTASSIUM URINE (BEAKER) (test htlo=353) 19.2 meq/L Reference Range: No NormalsCBC W/PLT COUNT & AUTO [id number] 10: 20:00 Test Item Value Reference Range Comments WHITE BLOOD CELL COUNT (BEAKER) (test yotg=903) 10.9 K/ L 3.5-10.5 RED BLOOD CELL COUNT (BEAKER) (test fzoz=659) 2.46 M/ L 4.63-6.08 HEMOGLOBIN (BEAKER) (test efrx=872) 7.9 GM/DL 13.7-17.5 HEMATOCRIT (BEAKER) (test vulr=914) 22.2 % 40.1-51.0 MEAN CORPUSCULAR VOLUME (BEAKER) (test nrqo=552) 90.2 fL 79.0-92.2 MEAN CORPUSCULAR HEMOGLOBIN (BEAKER) (test 32.1 pg 25.7-32.2 ikbh=733) MEAN CORPUSCULAR HEMOGLOBIN CONC (BEAKER) (test 35.6 GM/DL 32.3-36.5 gxfv=532) RED CELL DISTRIBUTION WIDTH (BEAKER) (test 14.2 % 11.6-14.4 ljnq=638) PLATELET COUNT (BEAKER) (test aunc=161) 82 K/CU MM 150-450 MEAN PLATELET VOLUME (BEAKER) (test ibsl=379) 8.3 fL 9.4-12.4 NUCLEATED RED BLOOD CELLS (BEAKER) (test 0 /100 WBC 0-0 lgxm=228) (CELLAVISION MANUAL DIFF)[id number] 10:20:00 Test Item Value Reference Range Comments NEUTROPHILS - REL (CELLAVISION)(BEAKER) (test 80 % imlu=3476) LYMPHOCYTES - REL (CELLAVISION)(BEAKER) (test 2 % bpuw=7961) MONOCYTES - REL (CELLAVISION)(BEAKER) (test 6 % dmaq=0130) BANDS - REL (CELLAVISION)(BEAKER) (test 12 % 0-10 vicp=3431) NEUTROPHILS - ABS (CELLAVISION)(BEAKER) (test 8.72 K/ul 1.78-5.38 klkj=6722) LYMPHOCYTES - ABS (CELLAVISION)(BEAKER) (test 0.22 K/ul 1.32-3.57 slkx=7085) MONOCYTES - ABS (CELLAVISION)(BEAKER) (test 0.65 K/uL 0.30-0.82 tagj=9298) BANDS - ABS (CELLAVISION)(BEAKER) (test 1.31 K/uL 0.00-0.80 zfkj=5828) TOTAL COUNTED (BEAKER) (test sqam=3124) 100 WBC MORPHOLOGY (BEAKER) (test gfnu=739) Normal PLT MORPHOLOGY (BEAKER) (test yzgx=405) Normal POLYCHROMATOPHILLIC RBCS(BEAKER) (test drrc=844) 2+ moderate ANISOCYTOSIS (BEAKER) (test czuc=495) 2+ moderate POIKILOCYTES (BEAKER) (test hcho=067) 2+ moderate ARTIFACT (CELLAVISION)(BEAKER) (test cito=6837) Present PLATELET CONCENTRATION (CELLAVISION)(BEAKER) Decreased (test pcaw=3015) Received comment: User comments: Slide comments:COMPREHENSIVE METABOLIC [id number] 09:30:00 Test Item Value Reference Range Comments TOTAL PROTEIN (BEAKER) 5.2 gm/dL 6.0-8.3 (test wnzv=407) ALBUMIN (BEAKER) (test 3.0 g/dL 3.5-5.0 erif=4525) ALKALINE PHOSPHATASE 158 U/L 40-150 (BEAKER) (test ttym=618) BILIRUBIN TOTAL (BEAKER) 2.9 mg/dL 0.2-1.2 (test uzzn=520) SODIUM (BEAKER) (test 111 meq/L 136-145 zwyc=250) POTASSIUM (BEAKER) (test 5.5 meq/L 3.5-5.1 isdm=052) CHLORIDE (BEAKER) (test 87 meq/L 98-107 zuxn=236) CO2 (BEAKER) (test 20 meq/L 22-29 uxxx=985) BLOOD UREA NITROGEN 39 mg/dL 7-21 (BEAKER) (test rztw=513) CREATININE (BEAKER) (test 1.55 mg/dL 0.57-1.25 rarq=695) GLUCOSE RANDOM (BEAKER) 79 mg/dL 70-105 (test cslz=055) CALCIUM (BEAKER) (test 9.0 mg/dL 8.4-10.2 ajcr=631) AST (SGOT) (BEAKER) (test 27 U/L 5-34 ebbx=359) ALT (SGPT) (BEAKER) (test 9 U/L 6-55 cigz=981) EGFR (BEAKER) (test 47 mL/min/1.73 sq m ESTIMATED GFR IS NOT pqrn=1021) ACCURATE CREATININE CLEARANCE IN PREDICTING GLOMERULAR FILTRATION RATE. ESTIMATED GFR IS NOT APPLICABLE FOR DIALYSIS PATIENTS. Specimen slightly ictericLACTIC ACID, VENOUS, WHOLE [id number] 09:15:00 Test Item Value Reference Range Comments LACTATE BLOOD VENOUS (2) (BEAKER) (test 0.9 mmol/L 0.5-2.2 heha=9462) Effective 02/28/2016: Units/Reference Range ChangeNew: 0.5-2.2 mmol/L Previous: 5 -20 mg/dLSpecimen slightly [id number] 09:01:00 Test Item Value Reference Range Comments AMMONIA (BEAKER) (test cgnx=026) 83 mol/L 18-72 PT/[id number] 08:54:00 Test Item Value Reference Range Comments PROTIME (BEAKER) (test muie=016) 21.4 seconds 11.7-14.7 INR (BEAKER) (test gjwo=883) 1.9 <=5.9 PARTIAL THROMBOPLASTIN TIME (BEAKER) (test 44.2 seconds 22.5-36.0 ewgx=422) RECOMMENDED COUMADIN/WARFARIN INR THERAPY RANGESSTANDARD DOSE: 2.0 - 3.0 Includes: PROPHYLAXIS forvenous thrombosis, systemic embolization; TREATMENT for venous thrombosis and/or pulmonary embolus.HIGH RISK: Target INR is 2.5-3.5 for patients with mechanical heart valves.PROTHROMBIN TIME/[id number] 08:53: 00 Test Item Value Reference Range Comments PROTIME (BEAKER) (test ofpd=172) 21.4 seconds 11.7-14.7 INR (BEAKER) (test envv=089) 1.9 <=5.9 RECOMMENDED COUMADIN/WARFARIN INR THERAPY RANGESSTANDARD DOSE: 2.0 - 3.0 Includes: PROPHYLAXIS forvenous thrombosis, systemic embolization; TREATMENT for venous thrombosis and/or pulmonary embolus.HIGH RISK: Target INR is 2.5-3.5 for patients with mechanical heart valves.COMPREHENSIVE METABOLIC [id number] 13:54:00 Test Item Value Reference Range Comments TOTAL PROTEIN (BEAKER) 6.2 gm/dL 6.0-8.3 (test yzry=299) ALBUMIN (BEAKER) (test 3.4 g/dL 3.5-5.0 posu=2409) ALKALINE PHOSPHATASE 190 U/L 40-150 (BEAKER) (test iroz=998) BILIRUBIN TOTAL (BEAKER) 1.9 mg/dL 0.2-1.2 (test dwvf=421) SODIUM (BEAKER) (test 125 meq/L 136-145 orxv=545) POTASSIUM (BEAKER) (test 5.0 meq/L 3.5-5.1 tpfd=785) CHLORIDE (BEAKER) (test 99 meq/L 98-107 bwnj=552) CO2 (BEAKER) (test 19 meq/L 22-29 aexy=468) BLOOD UREA NITROGEN 36 mg/dL 7-21 (BEAKER) (test iaob=378) CREATININE (BEAKER) (test 1.65 mg/dL 0.57-1.25 zsyo=857) GLUCOSE RANDOM (BEAKER) 133 mg/dL 70-105 (test angq=095) CALCIUM (BEAKER) (test 9.5 mg/dL 8.4-10.2 beig=978) AST (SGOT) (BEAKER) (test 23 U/L 5-34 xumj=422) ALT (SGPT) (BEAKER) (test 12 U/L 6-55 fnth=742) EGFR (BEAKER) (test 44 mL/min/1.73 sq m ESTIMATED GFR IS NOT zplv=3660) ACCURATE CREATININE CLEARANCE IN PREDICTING GLOMERULAR FILTRATION RATE. ESTIMATED GFR IS NOT APPLICABLE FOR DIALYSIS PATIENTS. BILIRUBIN, [id number] 13:54:00 Test Item Value Reference Range Comments BILIRUBIN DIRECT (BEAKER) (test dpxf=253) 1.4 mg/dL 0.1-0.5 CBC W/PLT COUNT & AUTO [id number] 13:50:00 Test Item Value Reference Range Comments WHITE BLOOD CELL COUNT (BEAKER) (test xswt=631) 6.8 K/ L 3.5-10.5 RED BLOOD CELL COUNT (BEAKER) (test dpqt=079) 3.01 M/ L 4.63-6.08 HEMOGLOBIN (BEAKER) (test vdsy=102) 9.5 GM/DL 13.7-17.5 HEMATOCRIT (BEAKER) (test lezn=994) 28.3 % 40.1-51.0 MEAN CORPUSCULAR VOLUME (BEAKER) (test nlui=503) 94.0 fL 79.0-92.2 MEAN CORPUSCULAR HEMOGLOBIN (BEAKER) (test 31.6 pg 25.7-32.2 fztb=215) MEAN CORPUSCULAR HEMOGLOBIN CONC (BEAKER) (test 33.6 GM/DL 32.3-36.5 qqrw=280) RED CELL DISTRIBUTION WIDTH (BEAKER) (test 14.5 % 11.6-14.4 dear=607) PLATELET COUNT (BEAKER) (test vsly=799) 131 K/CU MM 150-450 MEAN PLATELET VOLUME (BEAKER) (test tmlk=148) 9.0 fL 9.4-12.4 NUCLEATED RED BLOOD CELLS (BEAKER) (test 0 /100 WBC 0-0 zgsh=617) NEUTROPHILS RELATIVE PERCENT (BEAKER) (test 75 % jwiy=223) LYMPHOCYTES RELATIVE PERCENT (BEAKER) (test 7 % jszx=665) MONOCYTES RELATIVE PERCENT (BEAKER) (test 14 % rwyw=512) EOSINOPHILS RELATIVE PERCENT (BEAKER) (test 2 % yjaf=870) BASOPHILS RELATIVE PERCENT (BEAKER) (test 0 % lbzp=563) NEUTROPHILS ABSOLUTE COUNT (BEAKER) (test 5.11 K/ L 1.78-5.38 rumd=153) LYMPHOCYTES ABSOLUTE COUNT (BEAKER) (test 0.50 K/ L 1.32-3.57 zjmf=804) MONOCYTES ABSOLUTE COUNT (BEAKER) (test 0.94 K/ L 0.30-0.82 pqzr=625) EOSINOPHILS ABSOLUTE COUNT (BEAKER) (test 0.12 K/ L 0.04-0.54 tkxe=727) BASOPHILS ABSOLUTE COUNT (BEAKER) (test 0.03 K/ L 0.01-0.08 dmhn=450) IMMATURE GRANULOCYTES-RELATIVE PERCENT (BEAKER) 1 % 0-1 (test lgzt=3813) PROTHROMBIN [id number] 13:46:00 Test Item Value Reference Range Comments PROTIME (BEAKER) (test qdvq=808) 19.5 seconds 11.7-14.7 INR (BEAKER) (test swzi=508) 1.7 <=5.9 RECOMMENDED COUMADIN/WARFARIN INR THERAPY RANGESSTANDARD DOSE: 2.0 - 3.0 Includes: PROPHYLAXIS forvenous thrombosis, systemic embolization; TREATMENT for venous thrombosis and/or pulmonary embolus.HIGH RISK: Target INR is 2.5-3.5 for patients with mechanical heart valves.BONE AND/OR JOINT IMAGING, WHOLE [id number] 16:45:00FINAL REPORT PROCEDURE: BONE SCAN, WHOLE BODY CPT CODE: [id number] INDICATION: L3 vertebral body lesion follow-up R91.1 [...] Verified Date/ Time: 08/05/2018 16:45:34 Reading Location: [address] Reading Room NIR, VERTEBROPLASTY THORACIC, [id number] 17:23:00Reason for exam:->T11, T12, L2 compression fracturesAddendum [...] Verified Date/Time: 06/04/2018 17:23:27 Reading Location : [address] Radiology Reading RoomAddendum EndsFINAL REPORT HISTORY: [...] Verified Date/Time: 06/03/2018 17:56:43 Reading Location : [place] [address] Angio Body Reading Room ALPHA FETOPROTEIN (AFP), TUMOR [id number] 15:20:00 Test Item Value Reference Range Comments ALPHA-FETOPROTEIN (BEAKER) (test dvst=8672) 2.2 ng/mL <10.0 COMPREHENSIVE METABOLIC [id number] 14:54:00 Test Item Value Reference Range Comments TOTAL PROTEIN (BEAKER) 6.5 gm/dL 6.0-8.3 (test bmpq=251) ALBUMIN (BEAKER) (test 3.6 g/dL 3.5-5.0 hedh=7335) ALKALINE PHOSPHATASE 342 U/L 40-150 (BEAKER) (test kbnv=656) BILIRUBIN TOTAL (BEAKER) 4.2 mg/dL 0.2-1.2 (test xxjv=878) SODIUM (BEAKER) (test 128 meq/L 136-145 jixq=135) POTASSIUM (BEAKER) (test 4.6 meq/L 3.5-5.1 kwvo=045) CHLORIDE (BEAKER) (test 100 meq/L 98-107 drjp=972) CO2 (BEAKER) (test 21 meq/L 22-29 kpxf=529) BLOOD UREA NITROGEN 21 mg/dL 7-21 (BEAKER) (test skbi=379) CREATININE (BEAKER) (test 1.37 mg/dL 0.57-1.25 htec=790) GLUCOSE RANDOM (BEAKER) 108 mg/dL 70-105 (test kvzr=448) CALCIUM (BEAKER) (test 9.5 mg/dL 8.4-10.2 arjz=164) AST (SGOT) (BEAKER) (test 25 U/L 5-34 bzij=288) ALT (SGPT) (BEAKER) (test 10 U/L 6-55 ghvy=588) EGFR (BEAKER) (test 54 mL/min/1.73 sq m ESTIMATED GFR IS NOT ksdn=8822) ACCURATE CREATININE CLEARANCE IN PREDICTING GLOMERULAR FILTRATION RATE. ESTIMATED GFR IS NOT APPLICABLE FOR DIALYSIS PATIENTS. Specimen slightly ictericBILIRUBIN, [id number] 14:54:00 Test Item Value Reference Range Comments BILIRUBIN DIRECT (BEAKER) (test jycw=697) 2.1 mg/dL 0.1-0.5 CBC W/PLT COUNT & AUTO [id number] 14:52:00 Test Item Value Reference Range Comments WHITE BLOOD CELL COUNT (BEAKER) (test cxoh=747) 3.9 K/ L 3.5-10.5 RED BLOOD CELL COUNT (BEAKER) (test ydyw=973) 2.69 M/ L 4.63-6.08 HEMOGLOBIN (BEAKER) (test rtdr=185) 9.1 GM/DL 13.7-17.5 HEMATOCRIT (BEAKER) (test pebj=443) 27.3 % 40.1-51.0 MEAN CORPUSCULAR VOLUME (BEAKER) (test mnwe=726) 101.5 fL 79.0-92.2 MEAN CORPUSCULAR HEMOGLOBIN (BEAKER) (test 33.8 pg 25.7-32.2 hgyf=896) MEAN CORPUSCULAR HEMOGLOBIN CONC (BEAKER) (test 33.3 GM/DL 32.3-36.5 wpbb=792) RED CELL DISTRIBUTION WIDTH (BEAKER) (test 18.6 % 11.6-14.4 fgru=002) PLATELET COUNT (BEAKER) (test leqe=833) 71 K/CU MM 150-450 MEAN PLATELET VOLUME (BEAKER) (test cfdm=071) 9.6 fL 9.4-12.4 NUCLEATED RED BLOOD CELLS (BEAKER) (test 0 /100 WBC 0-0 oeuj=340) NEUTROPHILS RELATIVE PERCENT (BEAKER) (test 62 % ebgv=192) LYMPHOCYTES RELATIVE PERCENT (BEAKER) (test 16 % wjyy=270) MONOCYTES RELATIVE PERCENT (BEAKER) (test 17 % gjbq=259) EOSINOPHILS RELATIVE PERCENT (BEAKER) (test 5 % admx=607) BASOPHILS RELATIVE PERCENT (BEAKER) (test 0 % bjju=526) NEUTROPHILS ABSOLUTE COUNT (BEAKER) (test 2.41 K/ L 1.78-5.38 uvyw=401) LYMPHOCYTES ABSOLUTE COUNT (BEAKER) (test 0.62 K/ L 1.32-3.57 sxus=860) MONOCYTES ABSOLUTE COUNT (BEAKER) (test ftzd=362) 0.65 K/ L 0.30-0.82 EOSINOPHILS ABSOLUTE COUNT (BEAKER) (test 0.20 K/ L 0.04-0.54 jkne=694) BASOPHILS ABSOLUTE COUNT (BEAKER) (test coaj=125) 0.01 K/ L 0.01-0.08 IMMATURE GRANULOCYTES-RELATIVE PERCENT (BEAKER) 0 % 0-1 (test mbrq=4262) PROTHROMBIN TIME/[id number] 14:50:00 Test Item Value Reference Range Comments PROTIME (BEAKER) (test mfbx=426) 19.5 seconds 11.7-14.7 INR (BEAKER) (test qnlc=481) 1.7 <=5.9 RECOMMENDED COUMADIN/WARFARIN INR THERAPY RANGESSTANDARD DOSE: 2.0 - 3.0 Includes: PROPHYLAXIS forvenous thrombosis, systemic embolization; TREATMENT for venous thrombosis and/or pulmonary embolus.HIGH RISK: Target INR is 2.5-3.5 for patients with mechanical heart valves.BODY FLUID CULTURE + GRAM [id number] 13:19:00 Test Item Value Reference Range Comments CULTURE (BEAKER) (test fnft=2491) No growth GRAM STAIN RESULT (BEAKER) (test No WBCs sdov=5497) GRAM STAIN RESULT (BEAKER) (test No organisms seen smoa=37327) [id number] 17:36:00 Test Item Value Reference Range Comments SODIUM (BEAKER) (test dhgj=590) 133 meq/L 136-145 POTASSIUM (BEAKER) (test wkwb=872) 3.2 meq/L 3.5-5.1 CHLORIDE (BEAKER) (test kdvn=134) 102 meq/L 98-107 CO2 (BEAKER) (test nymj=828) 21 meq/L 22-29 [id number] 13:21:00 Test Item Value Reference Range Comments SODIUM (BEAKER) (test utbo=735) 134 meq/L 136-145 POTASSIUM (BEAKER) (test uxkq=075) 3.0 meq/L 3.5-5.1 CHLORIDE (BEAKER) (test qrht=386) 103 meq/L 98-107 CO2 (BEAKER) (test queo=102) 22 meq/L 22-29 CALCIUM, [id number] 04:54:00 Test Item Value Reference Range Comments CALCIUM IONIZED (BEAKER) (test hwdr=882) 1.09 mmol/L 1.12-1.27 PH, BLOOD (BEAKER) (test atfl=5097) 7.35 [id number] 04:04:00 Test Item Value Reference Range Comments PHOSPHORUS (BEAKER) (test rwxu=554) 2.4 mg/dL 2.3-4.7 [id number] 04:04:00 Test Item Value Reference Range Comments MAGNESIUM (BEAKER) (test mzpx=097) 2.0 mg/dL 1.6-2.6 HEPATIC FUNCTION [id number] 04:04:00 Test Item Value Reference Range Comments TOTAL PROTEIN (BEAKER) (test bjrj=316) 5.8 gm/dL 6.0-8.3 ALBUMIN (BEAKER) (test ppzs=9877) 4.1 g/dL 3.5-5.0 BILIRUBIN TOTAL (BEAKER) (test djqy=820) 3.9 mg/dL 0.2-1.2 BILIRUBIN DIRECT (BEAKER) (test klmr=202) 2.0 mg/dL 0.1-0.5 ALKALINE PHOSPHATASE (BEAKER) (test bgbj=078) 123 U/L 40-150 AST (SGOT) (BEAKER) (test meag=176) 14 U/L 5-34 ALT (SGPT) (BEAKER) (test ixaa=751) < U/L 6-55 Specimen slightly ictericCOMPREHENSIVE METABOLIC [id number] 04:04:00 Test Item Value Reference Range Comments TOTAL PROTEIN (BEAKER) 5.8 gm/dL 6.0-8.3 (test rwlg=435) ALBUMIN (BEAKER) (test 4.1 g/dL 3.5-5.0 opus=2006) ALKALINE PHOSPHATASE 123 U/L 40-150 (BEAKER) (test fxrd=924) BILIRUBIN TOTAL (BEAKER) 3.9 mg/dL 0.2-1.2 (test vcwj=988) SODIUM (BEAKER) (test 135 meq/L 136-145 ezpk=106) POTASSIUM (BEAKER) (test 2.9 meq/L 3.5-5.1 cctg=887) CHLORIDE (BEAKER) (test 103 meq/L 98-107 iocr=639) CO2 (BEAKER) (test 21 meq/L 22-29 gpee=119) BLOOD UREA NITROGEN 18 mg/dL 7-21 (BEAKER) (test hhlj=971) CREATININE (BEAKER) (test 1.32 mg/dL 0.57-1.25 ivgc=456) GLUCOSE RANDOM (BEAKER) 126 mg/dL 70-105 (test nwcm=338) CALCIUM (BEAKER) (test 9.8 mg/dL 8.4-10.2 ynig=156) AST (SGOT) (BEAKER) (test 14 U/L 5-34 pxec=752) ALT (SGPT) (BEAKER) (test < U/L 6-55 pdwo=644) EGFR (BEAKER) (test 57 mL/min/1.73 sq m ESTIMATED GFR IS NOT mixh=7840) ACCURATE CREATININE CLEARANCE IN PREDICTING GLOMERULAR FILTRATION RATE. ESTIMATED GFR IS NOT APPLICABLE FOR DIALYSIS PATIENTS. Specimen slightly ictericPROTHROMBIN [id number] 04:02:00 Test Item Value Reference Range Comments PROTIME (BEAKER) (test egye=019) 25.1 seconds 11.7-14.7 INR (BEAKER) (test nqvm=566) 2.3 <=5.9 RECOMMENDED COUMADIN/WARFARIN INR THERAPY RANGESSTANDARD DOSE: 2.0 - 3.0 Includes: PROPHYLAXIS forvenous thrombosis, systemic embolization; TREATMENT for venous thrombosis and/or pulmonary embolus.HIGH RISK: Target INR is 2.5-3.5 for patients with mechanical heart valves.CBC W/PLT COUNT & AUTO [id number] 03:55:00 Test Item Value Reference Range Comments WHITE BLOOD CELL COUNT (BEAKER) (test xqnu=289) 3.6 K/ L 3.5-10.5 RED BLOOD CELL COUNT (BEAKER) (test qeza=388) 2.48 M/ L 4.63-6.08 HEMOGLOBIN (BEAKER) (test mheh=974) 7.9 GM/DL 13.7-17.5 HEMATOCRIT (BEAKER) (test gtwo=147) 23.7 % 40.1-51.0 MEAN CORPUSCULAR VOLUME (BEAKER) (test zytj=570) 95.6 fL 79.0-92.2 MEAN CORPUSCULAR HEMOGLOBIN (BEAKER) (test 31.9 pg 25.7-32.2 yrcb=377) MEAN CORPUSCULAR HEMOGLOBIN CONC (BEAKER) (test 33.3 GM/DL 32.3-36.5 uutr=007) RED CELL DISTRIBUTION WIDTH (BEAKER) (test 18.8 % 11.6-14.4 fwnb=716) PLATELET COUNT (BEAKER) (test hezj=191) 38 K/CU MM 150-450 MEAN PLATELET VOLUME (BEAKER) (test efhe=654) 9.3 fL 9.4-12.4 NUCLEATED RED BLOOD CELLS (BEAKER) (test 0 /100 WBC 0-0 kywo=908) NEUTROPHILS RELATIVE PERCENT (BEAKER) (test 57 % fwey=258) LYMPHOCYTES RELATIVE PERCENT (BEAKER) (test 15 % tfpx=494) MONOCYTES RELATIVE PERCENT (BEAKER) (test 22 % zzey=714) EOSINOPHILS RELATIVE PERCENT (BEAKER) (test 4 % tdut=885) BASOPHILS RELATIVE PERCENT (BEAKER) (test 0 % elju=937) NEUTROPHILS ABSOLUTE COUNT (BEAKER) (test 2.09 K/ L 1.78-5.38 uoya=416) LYMPHOCYTES ABSOLUTE COUNT (BEAKER) (test 0.54 K/ L 1.32-3.57 xonw=803) MONOCYTES ABSOLUTE COUNT (BEAKER) (test iquk=639) 0.81 K/ L 0.30-0.82 EOSINOPHILS ABSOLUTE COUNT (BEAKER) (test 0.15 K/ L 0.04-0.54 dkzk=254) BASOPHILS ABSOLUTE COUNT (BEAKER) (test dxkt=543) 0.01 K/ L 0.01-0.08 IMMATURE GRANULOCYTES-RELATIVE PERCENT (BEAKER) 1 % 0-1 (test vuxg=9498) [id number] 18:07:00 Test Item Value Reference Range Comments SODIUM (BEAKER) (test jcxn=342) 132 meq/L 136-145 POTASSIUM (BEAKER) (test 2.9 meq/L 3.5-5.1 Specimen slightly hemolyzed xphq=520) CHLORIDE (BEAKER) (test 101 meq/L 98-107 hldv=908) CO2 (BEAKER) (test nrvv=934) 18 meq/L 22-29 LACTIC ACID, VENOUS, WHOLE [id number] 16:43:00 Test Item Value Reference Range Comments LACTATE BLOOD VENOUS (2) 1.6 mmol/L 0.5-2.2 Specimen slightly hemolyzed (BEAKER) (test yhjb=9128) Effective 02/28/2016: Units/Reference Range ChangeNew: 0.5-2.2 mmol/L Previous: 5 -20 mg/dLSpecimen slightly ictericBODY FLUID CULTURE + GRAM [id number] 12: 08:00 Test Item Value Reference Range Comments CULTURE (BEAKER) (test cdyl=0145) No growth GRAM STAIN RESULT (BEAKER) (test <1+ WBCs fipf=5506) GRAM STAIN RESULT (BEAKER) (test No organisms seen frnl=64057) [id number] 08:10:00 Test Item Value Reference Range Comments PHOSPHORUS (BEAKER) (test swae=284) 2.8 mg/dL 2.3-4.7 [id number] 08:10:00 Test Item Value Reference Range Comments MAGNESIUM (BEAKER) (test tbnu=951) 2.2 mg/dL 1.6-2.6 COMPREHENSIVE METABOLIC [id number] 08:10:00 Test Item Value Reference Range Comments TOTAL PROTEIN (BEAKER) 6.2 gm/dL 6.0-8.3 (test hjcy=407) ALBUMIN (BEAKER) (test 4.4 g/dL 3.5-5.0 nqij=7900) ALKALINE PHOSPHATASE 121 U/L 40-150 (BEAKER) (test fuoo=736) BILIRUBIN TOTAL (BEAKER) 4.4 mg/dL 0.2-1.2 (test jfzl=472) SODIUM (BEAKER) (test 135 meq/L 136-145 peua=040) POTASSIUM (BEAKER) (test 2.8 meq/L 3.5-5.1 bpdj=994) CHLORIDE (BEAKER) (test 102 meq/L 98-107 tjkg=526) CO2 (BEAKER) (test 21 meq/L 22-29 ekrc=805) BLOOD UREA NITROGEN 20 mg/dL 7-21 (BEAKER) (test zydw=928) CREATININE (BEAKER) (test 1.34 mg/dL 0.57-1.25 rpsz=886) GLUCOSE RANDOM (BEAKER) 132 mg/dL 70-105 (test uxyc=522) CALCIUM (BEAKER) (test 10.0 mg/dL 8.4-10.2 xxus=611) AST (SGOT) (BEAKER) (test 16 U/L 5-34 hhls=029) ALT (SGPT) (BEAKER) (test 6 U/L 6-55 fjtu=571) EGFR (BEAKER) (test 56 mL/min/1.73 sq m ESTIMATED GFR IS NOT iwwk=0428) ACCURATE CREATININE CLEARANCE IN PREDICTING GLOMERULAR FILTRATION RATE. ESTIMATED GFR IS NOT APPLICABLE FOR DIALYSIS PATIENTS. Specimen slightly ictericHEPATIC FUNCTION [id number] 08:10:00 Test Item Value Reference Range Comments TOTAL PROTEIN (BEAKER) (test devn=245) 6.2 gm/dL 6.0-8.3 ALBUMIN (BEAKER) (test fkag=4079) 4.4 g/dL 3.5-5.0 BILIRUBIN TOTAL (BEAKER) (test ckav=572) 4.4 mg/dL 0.2-1.2 BILIRUBIN DIRECT (BEAKER) (test lmlk=048) 1.9 mg/dL 0.1-0.5 ALKALINE PHOSPHATASE (BEAKER) (test qxen=842) 121 U/L 40-150 AST (SGOT) (BEAKER) (test xdvo=817) 16 U/L 5-34 ALT (SGPT) (BEAKER) (test jmmz=182) 6 U/L 6-55 Specimen slightly ictericCALCIUM, [id number] 07:20:00 Test Item Value Reference Range Comments CALCIUM IONIZED (BEAKER) (test pouk=741) 1.01 mmol/L 1.12-1.27 PH, BLOOD (BEAKER) (test lpmp=9510) 7.49 CBC W/PLT COUNT & AUTO [id number] 06:59:00 Test Item Value Reference Range Comments WHITE BLOOD CELL COUNT (BEAKER) (test lkar=063) 4.1 K/ L 3.5-10.5 RED BLOOD CELL COUNT (BEAKER) (test fxfh=929) 2.62 M/ L 4.63-6.08 HEMOGLOBIN (BEAKER) (test qjqp=815) 8.2 GM/DL 13.7-17.5 HEMATOCRIT (BEAKER) (test owyt=195) 24.9 % 40.1-51.0 MEAN CORPUSCULAR VOLUME (BEAKER) (test ocwd=475) 95.0 fL 79.0-92.2 MEAN CORPUSCULAR HEMOGLOBIN (BEAKER) (test 31.3 pg 25.7-32.2 xamp=019) MEAN CORPUSCULAR HEMOGLOBIN CONC (BEAKER) (test 32.9 GM/DL 32.3-36.5 yeui=721) RED CELL DISTRIBUTION WIDTH (BEAKER) (test 18.6 % 11.6-14.4 myyr=385) PLATELET COUNT (BEAKER) (test wlkf=532) 38 K/CU MM 150-450 MEAN PLATELET VOLUME (BEAKER) (test itfr=271) 9.3 fL 9.4-12.4 NUCLEATED RED BLOOD CELLS (BEAKER) (test 0 /100 WBC 0-0 sefr=972) NEUTROPHILS RELATIVE PERCENT (BEAKER) (test 66 % zvfk=177) LYMPHOCYTES RELATIVE PERCENT (BEAKER) (test 12 % owtm=473) MONOCYTES RELATIVE PERCENT (BEAKER) (test 18 % ejfy=981) EOSINOPHILS RELATIVE PERCENT (BEAKER) (test 3 % eyox=077) BASOPHILS RELATIVE PERCENT (BEAKER) (test 1 % lfsk=259) NEUTROPHILS ABSOLUTE COUNT (BEAKER) (test 2.74 K/ L 1.78-5.38 fipu=832) LYMPHOCYTES ABSOLUTE COUNT (BEAKER) (test 0.49 K/ L 1.32-3.57 dbuv=352) MONOCYTES ABSOLUTE COUNT (BEAKER) (test baur=932) 0.75 K/ L 0.30-0.82 EOSINOPHILS ABSOLUTE COUNT (BEAKER) (test 0.11 K/ L 0.04-0.54 yrky=023) BASOPHILS ABSOLUTE COUNT (BEAKER) (test awap=486) 0.02 K/ L 0.01-0.08 IMMATURE GRANULOCYTES-RELATIVE PERCENT (BEAKER) 1 % 0-1 (test xwbg=0920) PROTHROMBIN [id number] 06:56:00 Test Item Value Reference Range Comments PROTIME (BEAKER) (test xtce=290) 24.5 seconds 11.7-14.7 INR (BEAKER) (test gifl=705) 2.2 <=5.9 RECOMMENDED COUMADIN/WARFARIN INR THERAPY RANGESSTANDARD DOSE: 2.0 - 3.0 Includes: PROPHYLAXIS forvenous thrombosis, systemic embolization; TREATMENT for venous thrombosis and/or pulmonary embolus.HIGH RISK: Target INR is 2.5-3.5 for patients with mechanical heart valves.BODY FLUID CELL COUNT WITH [id number] 18:36:00 Test Item Value Reference Range Comments APPEARANCE FLUID (BEAKER) (test vgsg=043) Hazy Clear COLOR FLUID (BEAKER) (test esms=348) Yellow Colorless, Straw RBC FLUID (BEAKER) (test gmwb=401) 2000 /cu mm <=1 ADJUSTED WBC FLUID (BEAKER) (test mnfz=3268) 96 /cu mm <=5 LINING CELLS (BEAKER) (test fkek=2752) 2 /cu mm <=1 NEUTROPHILS FLUID (BEAKER) (test kalz=6853) 4 % LYMPHS FLUID (BEAKER) (test gxwp=823) 11 % MONO/MACROPHAGE FLUID (BEAKER) (test hzdr=188) 85 % EOSINOPHILS FLUID (BEAKER) (test qhxa=407) 0 % BASO FLUID (BEAKER) (test qdlh=825) 0 % CONTAINER BODY FLUID (BEAKER) (test lkjf=4157) EDTA Tube U/S, [id number] 12:49:00Limit to 4L due to AKIReason for exam:-> ascitesFINAL REPORT Indication: Ascites. Technique: Ultrasound guided paracentesis. Findings:Preliminary ultrasound confirms ascites. A safe window was identified in the midline (suprapubic). The procedure was explained to the patient and informed consent was signed. The skin was marked and prepped in standard sterile fashion. 2% lidocaine was used for local anesthesia. A 5 Canadian needle catheter system was advanced into the peritoneal space. 3300 cc clear yellow fluid was taken off.Sample of the fluid was sent to the laboratory. Patient tolerated the procedure well. Impression: Ultrasound guided paracentesis. Signed: Aristeo Xiong [facility] Verified Date/ Time: 05/13/2018 12:49:12 Reading Location: [facility] P006J Ultrasound Reading Room 12: 49 PMCALCIUM, [id number] 05:29:00 Test Item Value Reference Range Comments CALCIUM IONIZED (BEAKER) (test piwt=541) 1.10 mmol/L 1.12-1.27 PH, BLOOD (BEAKER) (test jxwj=0163) 7.35 B-TYPE NATRIURETIC FACTOR (BNP)2018-05-13 04:48:00 Test Item Value Reference Range Comments B-TYPE NATRIURETIC PEPTIDE (BEAKER) (test 274 pg/mL 0-100 ngrf=343) [id number] 04:44:00 Test Item Value Reference Range Comments PHOSPHORUS (BEAKER) (test grqh=306) 3.0 mg/dL 2.3-4.7 [id number] 04:44:00 Test Item Value Reference Range Comments MAGNESIUM (BEAKER) (test rbsb=972) 2.0 mg/dL 1.6-2.6 COMPREHENSIVE METABOLIC [id number] 04:44:00 Test Item Value Reference Range Comments TOTAL PROTEIN (BEAKER) 6.2 gm/dL 6.0-8.3 (test jkim=134) ALBUMIN (BEAKER) (test 4.3 g/dL 3.5-5.0 mxeo=1004) ALKALINE PHOSPHATASE 134 U/L 40-150 (BEAKER) (test hxdg=857) BILIRUBIN TOTAL (BEAKER) 4.4 mg/dL 0.2-1.2 (test caiq=918) SODIUM (BEAKER) (test 131 meq/L 136-145 dudc=861) POTASSIUM (BEAKER) (test 3.7 meq/L 3.5-5.1 oflv=411) CHLORIDE (BEAKER) (test 96 meq/L 98-107 fncv=196) CO2 (BEAKER) (test 26 meq/L 22-29 iwga=638) BLOOD UREA NITROGEN 20 mg/dL 7-21 (BEAKER) (test hgli=204) CREATININE (BEAKER) (test 1.60 mg/dL 0.57-1.25 sowb=592) GLUCOSE RANDOM (BEAKER) 149 mg/dL 70-105 (test wste=014) CALCIUM (BEAKER) (test 10.0 mg/dL 8.4-10.2 fvpk=713) AST (SGOT) (BEAKER) (test 18 U/L 5-34 lumv=853) ALT (SGPT) (BEAKER) (test 7 U/L 6-55 tbwp=184) EGFR (BEAKER) (test 46 mL/min/1.73 sq m ESTIMATED GFR IS NOT ieio=4091) ACCURATE CREATININE CLEARANCE IN PREDICTING GLOMERULAR FILTRATION RATE. ESTIMATED GFR IS NOT APPLICABLE FOR DIALYSIS PATIENTS. Specimen slightly ictericHEPATIC FUNCTION [id number] 04:44:00 Test Item Value Reference Range Comments TOTAL PROTEIN (BEAKER) (test ypkt=530) 6.2 gm/dL 6.0-8.3 ALBUMIN (BEAKER) (test pszn=6110) 4.3 g/dL 3.5-5.0 BILIRUBIN TOTAL (BEAKER) (test evit=828) 4.4 mg/dL 0.2-1.2 BILIRUBIN DIRECT (BEAKER) (test uoja=161) 2.4 mg/dL 0.1-0.5 ALKALINE PHOSPHATASE (BEAKER) (test expo=212) 134 U/L 40-150 AST (SGOT) (BEAKER) (test bgib=442) 18 U/L 5-34 ALT (SGPT) (BEAKER) (test nfxd=190) 7 U/L 6-55 Specimen slightly ictericPROTHROMBIN [id number] 04:30:00 Test Item Value Reference Range Comments PROTIME (BEAKER) (test onjb=247) 23.8 seconds 11.7-14.7 INR (BEAKER) (test odns=400) 2.1 <=5.9 RECOMMENDED COUMADIN/WARFARIN INR THERAPY RANGESSTANDARD DOSE: 2.0 - 3.0 Includes: PROPHYLAXIS forvenous thrombosis, systemic embolization; TREATMENT for venous thrombosis and/or pulmonary embolus.HIGH RISK: Target INR is 2.5-3.5 for patients with mechanical heart valves.CBC W/PLT COUNT & AUTO [id number] 04:19:00 Test Item Value Reference Range Comments WHITE BLOOD CELL COUNT (BEAKER) (test repc=769) 4.0 K/ L 3.5-10.5 RED BLOOD CELL COUNT (BEAKER) (test monc=536) 2.60 M/ L 4.63-6.08 HEMOGLOBIN (BEAKER) (test uckf=912) 8.2 GM/DL 13.7-17.5 HEMATOCRIT (BEAKER) (test ttjf=130) 24.6 % 40.1-51.0 MEAN CORPUSCULAR VOLUME (BEAKER) (test vlmq=731) 94.6 fL 79.0-92.2 MEAN CORPUSCULAR HEMOGLOBIN (BEAKER) (test 31.5 pg 25.7-32.2 xzxs=923) MEAN CORPUSCULAR HEMOGLOBIN CONC (BEAKER) (test 33.3 GM/DL 32.3-36.5 mknx=019) RED CELL DISTRIBUTION WIDTH (BEAKER) (test 18.1 % 11.6-14.4 yhky=984) PLATELET COUNT (BEAKER) (test mrjl=414) 46 K/CU MM 150-450 MEAN PLATELET VOLUME (BEAKER) (test ydan=424) 9.1 fL 9.4-12.4 NUCLEATED RED BLOOD CELLS (BEAKER) (test 0 /100 WBC 0-0 tpws=420) NEUTROPHILS RELATIVE PERCENT (BEAKER) (test 62 % babk=960) LYMPHOCYTES RELATIVE PERCENT (BEAKER) (test 13 % hhni=629) MONOCYTES RELATIVE PERCENT (BEAKER) (test 21 % jkqs=241) EOSINOPHILS RELATIVE PERCENT (BEAKER) (test 3 % hxwi=818) BASOPHILS RELATIVE PERCENT (BEAKER) (test 0 % ireu=333) NEUTROPHILS ABSOLUTE COUNT (BEAKER) (test 2.49 K/ L 1.78-5.38 aaeh=237) LYMPHOCYTES ABSOLUTE COUNT (BEAKER) (test 0.53 K/ L 1.32-3.57 gojb=301) MONOCYTES ABSOLUTE COUNT (BEAKER) (test djmn=804) 0.86 K/ L 0.30-0.82 EOSINOPHILS ABSOLUTE COUNT (BEAKER) (test 0.10 K/ L 0.04-0.54 ucva=720) BASOPHILS ABSOLUTE COUNT (BEAKER) (test uyty=763) 0.01 K/ L 0.01-0.08 IMMATURE GRANULOCYTES-RELATIVE PERCENT (BEAKER) 1 % 0-1 (test jnif=7510) TISSUE [id number] 14:55:00Surgical Pathology Report Case: [id number] Authorizing Provider: Karina Rain MD Collected: 05/08/20181999 Ordering Location: [address] Received: 05/11/2018 0837 Service Pathologist: Jesús Craig MD Specimen: Bone L3 VERTEBRAL BODYBONE BIOPSY:BONE AND BONE MARROW, NEGATIVE FOR MALIGNANCY.SEE DIAGNOSTIC COMMENT. Signing Pathologist Direct Phone Line: [phone] signed by Jesús Craig MD on 05/12/2018 [...] as thesampled material may not be fully patient relations representative. This case was discussed with Dr. Andrea Mason, golf ball cover treater.[id number], [id number], [id number], [id number] fracture of body thoracic vertebralL3 vertebral body [...] developed and its performance characteristics determined by [facility], Pathology Laboratory. It has not been [...] clinical laboratory testing.RAD, CHEST, 1 VIEW, NON [id number] 13:56:00Reason for exam:->edemaShould this be performed at the bedside?->YesFINAL REPORT Chest one view compared to December 30 Discussion: Ill-defined bilateral airspace opacities are worse since the previous study although this may reflect a lesser inspiratory effort. No gross effusion or pneumothorax. Signed: Karina Pugh Verified Date/Time : 05/12/2018 13:56:44 Reading Location: [address] Consult Reading Room CALCIUM [id number] 06:58:00 Test Item Value Reference Range Comments CALCIUM IONIZED (BEAKER) (test zhmr=393) 1.11 mmol/L 1.12-1.27 PH, BLOOD (BEAKER) (test tevv=5944) 7.36 [id number] 06:31:00 Test Item Value Reference Range Comments PHOSPHORUS (BEAKER) (test pvbe=572) 2.9 mg/dL 2.3-4.7 [id number] 06:31:00 Test Item Value Reference Range Comments MAGNESIUM (BEAKER) (test qlrz=505) 1.9 mg/dL 1.6-2.6 COMPREHENSIVE METABOLIC [id number] 06:31:00 Test Item Value Reference Range Comments TOTAL PROTEIN (BEAKER) 5.8 gm/dL 6.0-8.3 (test veei=991) ALBUMIN (BEAKER) (test 4.0 g/dL 3.5-5.0 ydof=9819) ALKALINE PHOSPHATASE 124 U/L 40-150 (BEAKER) (test jkut=626) BILIRUBIN TOTAL (BEAKER) 4.3 mg/dL 0.2-1.2 (test yaec=460) SODIUM (BEAKER) (test 128 meq/L 136-145 cejs=319) POTASSIUM (BEAKER) (test 3.9 meq/L 3.5-5.1 gmqt=116) CHLORIDE (BEAKER) (test 92 meq/L 98-107 irsn=840) CO2 (BEAKER) (test 26 meq/L 22-29 zqqa=252) BLOOD UREA NITROGEN 21 mg/dL 7-21 (BEAKER) (test qlrt=967) CREATININE (BEAKER) (test 1.54 mg/dL 0.57-1.25 iwju=668) GLUCOSE RANDOM (BEAKER) 113 mg/dL 70-105 (test zqza=931) CALCIUM (BEAKER) (test 9.5 mg/dL 8.4-10.2 fayn=914) AST (SGOT) (BEAKER) (test 16 U/L 5-34 cyna=184) ALT (SGPT) (BEAKER) (test 6 U/L 6-55 qhzc=162) EGFR (BEAKER) (test 48 mL/min/1.73 sq m ESTIMATED GFR IS NOT bgfu=7200) ACCURATE CREATININE CLEARANCE IN PREDICTING GLOMERULAR FILTRATION RATE. ESTIMATED GFR IS NOT APPLICABLE FOR DIALYSIS PATIENTS. Specimen slightly ictericHEPATIC FUNCTION [id number] 06:31:00 Test Item Value Reference Range Comments TOTAL PROTEIN (BEAKER) (test qznt=883) 5.8 gm/dL 6.0-8.3 ALBUMIN (BEAKER) (test bvcd=8533) 4.0 g/dL 3.5-5.0 BILIRUBIN TOTAL (BEAKER) (test vymm=945) 4.3 mg/dL 0.2-1.2 BILIRUBIN DIRECT (BEAKER) (test bjlw=664) 2.3 mg/dL 0.1-0.5 ALKALINE PHOSPHATASE (BEAKER) (test pqnx=611) 124 U/L 40-150 AST (SGOT) (BEAKER) (test srip=135) 16 U/L 5-34 ALT (SGPT) (BEAKER) (test bqli=105) 6 U/L 6-55 Specimen slightly ictericPROTHROMBIN [id number] 06:16:00 Test Item Value Reference Range Comments PROTIME (BEAKER) (test mknj=606) 22.3 seconds 11.7-14.7 INR (BEAKER) (test yqjx=740) 2.0 <=5.9 RECOMMENDED COUMADIN/WARFARIN INR THERAPY RANGESSTANDARD DOSE: 2.0 - 3.0 Includes: PROPHYLAXIS forvenous thrombosis, systemic embolization; TREATMENT for venous thrombosis and/or pulmonary embolus.HIGH RISK: Target INR is 2.5-3.5 for patients with mechanical heart valves.CBC W/PLT COUNT & AUTO [id number] 06:00:00 Test Item Value Reference Range Comments WHITE BLOOD CELL COUNT (BEAKER) (test halg=848) 4.3 K/ L 3.5-10.5 RED BLOOD CELL COUNT (BEAKER) (test ooyy=354) 2.68 M/ L 4.63-6.08 HEMOGLOBIN (BEAKER) (test mfbt=456) 8.3 GM/DL 13.7-17.5 HEMATOCRIT (BEAKER) (test gtwf=652) 25.0 % 40.1-51.0 MEAN CORPUSCULAR VOLUME (BEAKER) (test ixwo=662) 93.3 fL 79.0-92.2 MEAN CORPUSCULAR HEMOGLOBIN (BEAKER) (test 31.0 pg 25.7-32.2 npof=066) MEAN CORPUSCULAR HEMOGLOBIN CONC (BEAKER) (test 33.2 GM/DL 32.3-36.5 kcpq=680) RED CELL DISTRIBUTION WIDTH (BEAKER) (test 17.4 % 11.6-14.4 dmei=409) PLATELET COUNT (BEAKER) (test paxt=477) 57 K/CU MM 150-450 MEAN PLATELET VOLUME (BEAKER) (test vvyj=941) 9.3 fL 9.4-12.4 NUCLEATED RED BLOOD CELLS (BEAKER) (test 0 /100 WBC 0-0 dxkt=944) NEUTROPHILS RELATIVE PERCENT (BEAKER) (test 61 % brmn=236) LYMPHOCYTES RELATIVE PERCENT (BEAKER) (test 14 % bdiv=296) MONOCYTES RELATIVE PERCENT (BEAKER) (test 17 % cusz=962) EOSINOPHILS RELATIVE PERCENT (BEAKER) (test 7 % eseu=548) BASOPHILS RELATIVE PERCENT (BEAKER) (test 1 % rycf=026) NEUTROPHILS ABSOLUTE COUNT (BEAKER) (test 2.62 K/ L 1.78-5.38 yceh=048) LYMPHOCYTES ABSOLUTE COUNT (BEAKER) (test 0.59 K/ L 1.32-3.57 wrgv=347) MONOCYTES ABSOLUTE COUNT (BEAKER) (test xrtg=275) 0.73 K/ L 0.30-0.82 EOSINOPHILS ABSOLUTE COUNT (BEAKER) (test 0.29 K/ L 0.04-0.54 mqtq=775) BASOPHILS ABSOLUTE COUNT (BEAKER) (test kufa=832) 0.02 K/ L 0.01-0.08 IMMATURE GRANULOCYTES-RELATIVE PERCENT (BEAKER) 1 % 0-1 (test onui=0310) BLOOD [id number] 00:00:00 Test Item Value Reference Range Comments CULTURE (BEAKER) (test cldp=6716) No growth in 5 days BLOOD [id number] 00:00:00 Test Item Value Reference Range Comments CULTURE (BEAKER) (test jipx=3775) No growth in 5 days OSMOLALITY, [id number] 18:16:00 Test Item Value Reference Range Comments OSMOLALITY URINE (BEAKER) (test ybbs=385) 312 mOsm/kg 40-1400 BODY FLUID CELL COUNT WITH [id number] 17:17:00 Test Item Value Reference Range Comments APPEARANCE FLUID (BEAKER) (test wlnu=465) Clear Clear COLOR FLUID (BEAKER) (test ajql=471) Yellow Colorless, Straw RBC FLUID (BEAKER) (test hxii=166) 150 /cu mm <=1 ADJUSTED WBC FLUID (BEAKER) (test cgcs=8984) 72 /cu mm <=5 LINING CELLS (BEAKER) (test idgm=8425) 2 /cu mm <=1 NEUTROPHILS FLUID (BEAKER) (test qnha=4880) 3 % LYMPHS FLUID (BEAKER) (test nlfk=461) 28 % MONO/MACROPHAGE FLUID (BEAKER) (test qnma=656) 68 % EOSINOPHILS FLUID (BEAKER) (test vbel=089) 1 % BASO FLUID (BEAKER) (test pkic=822) 0 % CONTAINER BODY FLUID (BEAKER) (test zpny=3532) EDTA Tube SODIUM, RANDOM [id number] 17:09:00 Test Item Value Reference Range Comments SODIUM URINE (BEAKER) (test bscu=154) < meq/L Reference Range: No NormalsURINALYSIS W/ [id number] 17:08:00 Test Item Value Reference Range Comments COLOR (BEAKER) (test gqks=707) Yellow CLARITY (BEAKER) (test gddv=994) Clear SPECIFIC GRAVITY UA (BEAKER) (test zvcw=262) 1.012 1.001-1.035 PH UA (BEAKER) (test pvwb=575) 5.5 5.0-8.0 PROTEIN UA (BEAKER) (test dxfp=987) Negative Negative GLUCOSE UA (BEAKER) (test agsi=216) Negative Negative KETONES UA (BEAKER) (test lzrz=635) Negative Negative BILIRUBIN UA (BEAKER) (test jsij=351) Negative Negative BLOOD UA (BEAKER) (test ugnz=074) Negative Negative NITRITE UA (BEAKER) (test ripm=323) Negative Negative LEUKOCYTE ESTERASE UA (BEAKER) (test lreu=675) Negative Negative UROBILINOGEN UA (BEAKER) (test fulu=107) 2.0 mg/dL 0.2-1.0 RBC UA (BEAKER) (test hkcy=667) 0 /HPF WBC UA (BEAKER) (test nebm=165) 1 /HPF MUCUS (BEAKER) (test myhq=0188) Rare HYALINE CASTS (BEAKER) (test umoq=972) 15 /LPF SOURCE(BEAKER) (test ddbd=9371) CREATININE, RANDOM [id number] 17:05:00 Test Item Value Reference Range Comments CREATININE URINE (BEAKER) (test jtej=908) 116.1 mg/dL Reference Range: No NormalsPROTEIN, RANDOM [id number] 17:05:00 Test Item Value Reference Range Comments PROTEIN, URINE (BEAKER) (test jdlx=2478) 7 mg/dL 0-14 RAD, SPINE, THORACIC, 2 [id number] 13:53:00Reason for exam:->back pain, s/p kyphoplastyFINAL REPORT [...] disc space is relatively maintained. Signed: Aristeo Xiongvaluklik Verified Date/Time: 13:53:06 Reading Location: [facility] Reading Room RAD, SPINE, LUMBAR, 2 OR 3 [id number] 13:53:00Reason for exam:->back pain, s/p kyphoplastyFINAL REPORT [...] space is relatively maintained. Signed: Aristeo Xiong ListRunnerstanvaluklik Verified Date/Time: 13:53:06 Reading Location: [facility] Mammo Reading Room U/S, [id number] 12:52:00Limit to 4L due to AKIReason for exam:-> ascitesShould this be performed at the bedside?->NoFINAL REPORT Ultrasound guided paracentesis, 05/11/2018. Clinical History: Ascites. Sedation: None. Housekeeping Coordinator: Elle. Rn Surgical Pcu: None. Estimated Blood Loss: < 1 cc. [...] was achieved with 1% lidocaine, a 5 [place] one-step catheter was advanced into the peritoneal cavity under ultrasound guidance. After completion of drainage, the catheter was removed. There was no evidence of complication. Patient Disposition: The patient was discharged from the ultrasound department after the paracentesis, in good condition. Impression: Successful ultrasound guided paracentesis. Signed: Perlita AlmeidaReport Verified Date/Time: 05/11/2018 12:52:57 Reading Location: [address] Ultrasound Reading Room MISCELLANEOUS LAB [id number] 10:45:00 Test Item Value Reference Range Comments SCAN RESULT (test [id number]=[id number]) [id number] 07:31:00 Test Item Value Reference Range Comments PHOSPHORUS (BEAKER) (test caha=385) 2.7 mg/dL 2.3-4.7 [id number] 07:31:00 Test Item Value Reference Range Comments MAGNESIUM (BEAKER) (test dtft=330) 1.8 mg/dL 1.6-2.6 COMPREHENSIVE METABOLIC [id number] 07:31:00 Test Item Value Reference Range Comments TOTAL PROTEIN (BEAKER) 5.5 gm/dL 6.0-8.3 (test yhvn=519) ALBUMIN (BEAKER) (test 3.5 g/dL 3.5-5.0 dsdn=3646) ALKALINE PHOSPHATASE 118 U/L 40-150 (BEAKER) (test awux=386) BILIRUBIN TOTAL (BEAKER) 5.1 mg/dL 0.2-1.2 (test zuqd=073) SODIUM (BEAKER) (test 123 meq/L 136-145 bdrq=660) POTASSIUM (BEAKER) (test 4.1 meq/L 3.5-5.1 nfyn=222) CHLORIDE (BEAKER) (test 91 meq/L 98-107 vkuc=566) CO2 (BEAKER) (test 25 meq/L 22-29 bscg=188) BLOOD UREA NITROGEN 21 mg/dL 7-21 (BEAKER) (test swql=682) CREATININE (BEAKER) (test 1.59 mg/dL 0.57-1.25 zhni=147) GLUCOSE RANDOM (BEAKER) 121 mg/dL 70-105 (test pdvw=936) CALCIUM (BEAKER) (test 9.4 mg/dL 8.4-10.2 oadq=326) AST (SGOT) (BEAKER) (test 17 U/L 5-34 xdtf=221) ALT (SGPT) (BEAKER) (test 8 U/L 6-55 migf=180) EGFR (BEAKER) (test 46 mL/min/1.73 sq m ESTIMATED GFR IS NOT ymfa=0321) ACCURATE CREATININE CLEARANCE IN PREDICTING GLOMERULAR FILTRATION RATE. ESTIMATED GFR IS NOT APPLICABLE FOR DIALYSIS PATIENTS. Specimen moderately ictericHEPATIC FUNCTION [id number] 07:31:00 Test Item Value Reference Range Comments TOTAL PROTEIN (BEAKER) (test ugnp=463) 5.5 gm/dL 6.0-8.3 ALBUMIN (BEAKER) (test bvqa=8367) 3.5 g/dL 3.5-5.0 BILIRUBIN TOTAL (BEAKER) (test ftuz=534) 5.1 mg/dL 0.2-1.2 BILIRUBIN DIRECT (BEAKER) (test fxvc=329) 2.3 mg/dL 0.1-0.5 ALKALINE PHOSPHATASE (BEAKER) (test pusc=325) 118 U/L 40-150 AST (SGOT) (BEAKER) (test jilj=811) 17 U/L 5-34 ALT (SGPT) (BEAKER) (test cece=505) 8 U/L 6-55 Specimen moderately ictericPROTHROMBIN [id number] 07:17:00 Test Item Value Reference Range Comments PROTIME (BEAKER) (test wihz=087) 23.8 seconds 11.7-14.7 INR (BEAKER) (test nvkx=122) 2.1 <=5.9 RECOMMENDED COUMADIN/WARFARIN INR THERAPY RANGESSTANDARD DOSE: 2.0 - 3.0 Includes: PROPHYLAXIS forvenous thrombosis, systemic embolization; TREATMENT for venous thrombosis and/or pulmonary embolus.HIGH RISK: Target INR is 2.5-3.5 for patients with mechanical heart valves.CBC W/PLT COUNT & AUTO [id number] 07:15:00 Test Item Value Reference Range Comments WHITE BLOOD CELL COUNT (BEAKER) (test crie=870) 4.4 K/ L 3.5-10.5 RED BLOOD CELL COUNT (BEAKER) (test kbye=183) 2.52 M/ L 4.63-6.08 HEMOGLOBIN (BEAKER) (test bogu=566) 7.9 GM/DL 13.7-17.5 HEMATOCRIT (BEAKER) (test abpc=828) 23.7 % 40.1-51.0 MEAN CORPUSCULAR VOLUME (BEAKER) (test cyaj=216) 94.0 fL 79.0-92.2 MEAN CORPUSCULAR HEMOGLOBIN (BEAKER) (test 31.3 pg 25.7-32.2 vnpv=423) MEAN CORPUSCULAR HEMOGLOBIN CONC (BEAKER) (test 33.3 GM/DL 32.3-36.5 injk=582) RED CELL DISTRIBUTION WIDTH (BEAKER) (test 17.6 % 11.6-14.4 bxak=773) PLATELET COUNT (BEAKER) (test qhrp=966) 52 K/CU MM 150-450 MEAN PLATELET VOLUME (BEAKER) (test hydk=564) 9.2 fL 9.4-12.4 NUCLEATED RED BLOOD CELLS (BEAKER) (test 0 /100 WBC 0-0 vbpw=198) NEUTROPHILS RELATIVE PERCENT (BEAKER) (test 62 % uwfg=072) LYMPHOCYTES RELATIVE PERCENT (BEAKER) (test 10 % klqf=296) MONOCYTES RELATIVE PERCENT (BEAKER) (test 19 % lfbh=021) EOSINOPHILS RELATIVE PERCENT (BEAKER) (test 8 % hhbx=273) BASOPHILS RELATIVE PERCENT (BEAKER) (test 0 % lebk=290) NEUTROPHILS ABSOLUTE COUNT (BEAKER) (test 2.72 K/ L 1.78-5.38 xldj=757) LYMPHOCYTES ABSOLUTE COUNT (BEAKER) (test 0.42 K/ L 1.32-3.57 rdkx=282) MONOCYTES ABSOLUTE COUNT (BEAKER) (test xetz=003) 0.84 K/ L 0.30-0.82 EOSINOPHILS ABSOLUTE COUNT (BEAKER) (test 0.34 K/ L 0.04-0.54 tthf=639) BASOPHILS ABSOLUTE COUNT (BEAKER) (test acqo=208) 0.00 K/ L 0.01-0.08 IMMATURE GRANULOCYTES-RELATIVE PERCENT (BEAKER) 1 % 0-1 (test fqig=5020) CALCIUM, [id number] 07:09:00 Test Item Value Reference Range Comments CALCIUM IONIZED (BEAKER) (test qfkh=308) 1.09 mmol/L 1.12-1.27 PH, BLOOD (BEAKER) (test ovvm=4273) 7.36 BASIC METABOLIC [id number] 17:49:00 Test Item Value Reference Range Comments SODIUM (BEAKER) (test 124 meq/L 136-145 ccmm=743) POTASSIUM (BEAKER) (test 3.8 meq/L 3.5-5.1 gxqn=212) CHLORIDE (BEAKER) (test 91 meq/L 98-107 jjtr=543) CO2 (BEAKER) (test 22 meq/L 22-29 mxem=382) BLOOD UREA NITROGEN 19 mg/dL 7-21 (BEAKER) (test ifbo=296) CREATININE (BEAKER) (test 1.49 mg/dL 0.57-1.25 xgmg=258) GLUCOSE RANDOM (BEAKER) 105 mg/dL 70-105 (test szkk=710) CALCIUM (BEAKER) (test 9.3 mg/dL 8.4-10.2 fkyn=795) EGFR (BEAKER) (test 50 mL/min/1.73 sq m ESTIMATED GFR IS NOT onob=9364) ACCURATE CREATININE CLEARANCE IN PREDICTING GLOMERULAR FILTRATION RATE. ESTIMATED GFR IS NOT APPLICABLE FOR DIALYSIS PATIENTS. Call [id number] slightly ictericCALCIUM, [id number] 06:59:00 Test Item Value Reference Range Comments CALCIUM IONIZED (BEAKER) (test moal=184) 1.00 mmol/L 1.12-1.27 PH, BLOOD (BEAKER) (test djnn=7500) 7.47 [id number] 05:42:00 Test Item Value Reference Range Comments PHOSPHORUS (BEAKER) (test sanl=561) 2.7 mg/dL 2.3-4.7 [id number] 05:42:00 Test Item Value Reference Range Comments MAGNESIUM (BEAKER) (test pnml=335) 1.7 mg/dL 1.6-2.6 HEPATIC FUNCTION [id number] 05:42:00 Test Item Value Reference Range Comments TOTAL PROTEIN (BEAKER) (test tjor=569) 5.2 gm/dL 6.0-8.3 ALBUMIN (BEAKER) (test xydb=5713) 3.5 g/dL 3.5-5.0 BILIRUBIN TOTAL (BEAKER) (test mbjy=417) 3.4 mg/dL 0.2-1.2 BILIRUBIN DIRECT (BEAKER) (test jbpm=263) 1.8 mg/dL 0.1-0.5 ALKALINE PHOSPHATASE (BEAKER) (test gvuc=925) 106 U/L 40-150 AST (SGOT) (BEAKER) (test emwb=104) 15 U/L 5-34 ALT (SGPT) (BEAKER) (test zyid=409) 7 U/L 6-55 Specimen slightly ictericPROTHROMBIN [id number] 05:22:00 Test Item Value Reference Range Comments PROTIME (BEAKER) (test vhzc=627) 22.6 seconds 11.7-14.7 INR (BEAKER) (test wdnh=827) 2.0 <=5.9 RECOMMENDED COUMADIN/WARFARIN INR THERAPY RANGESSTANDARD DOSE: 2.0 - 3.0 Includes: PROPHYLAXIS forvenous thrombosis, systemic embolization; TREATMENT for venous thrombosis and/or pulmonary embolus.HIGH RISK: Target INR is 2.5-3.5 for patients with mechanical heart valves.CBC W/PLT COUNT & AUTO [id number] 05:10:00 Test Item Value Reference Range Comments WHITE BLOOD CELL COUNT (BEAKER) (test ybxl=164) 5.6 K/ L 3.5-10.5 RED BLOOD CELL COUNT (BEAKER) (test vozg=962) 2.09 M/ L 4.63-6.08 HEMOGLOBIN (BEAKER) (test soma=064) 6.5 GM/DL 13.7-17.5 HEMATOCRIT (BEAKER) (test cslo=898) 19.8 % 40.1-51.0 MEAN CORPUSCULAR VOLUME (BEAKER) (test gdxv=531) 94.7 fL 79.0-92.2 MEAN CORPUSCULAR HEMOGLOBIN (BEAKER) (test 31.1 pg 25.7-32.2 kvwd=855) MEAN CORPUSCULAR HEMOGLOBIN CONC (BEAKER) (test 32.8 GM/DL 32.3-36.5 rihw=344) RED CELL DISTRIBUTION WIDTH (BEAKER) (test 17.3 % 11.6-14.4 zepu=709) PLATELET COUNT (BEAKER) (test gvsg=857) 57 K/CU MM 150-450 MEAN PLATELET VOLUME (BEAKER) (test bavl=208) 8.9 fL 9.4-12.4 NUCLEATED RED BLOOD CELLS (BEAKER) (test 0 /100 WBC 0-0 hbwg=438) NEUTROPHILS RELATIVE PERCENT (BEAKER) (test 71 % uexb=811) LYMPHOCYTES RELATIVE PERCENT (BEAKER) (test 9 % lvma=951) MONOCYTES RELATIVE PERCENT (BEAKER) (test 16 % iqik=174) EOSINOPHILS RELATIVE PERCENT (BEAKER) (test 3 % dlpa=206) BASOPHILS RELATIVE PERCENT (BEAKER) (test 0 % yoyo=691) NEUTROPHILS ABSOLUTE COUNT (BEAKER) (test 3.93 K/ L 1.78-5.38 xerq=581) LYMPHOCYTES ABSOLUTE COUNT (BEAKER) (test 0.52 K/ L 1.32-3.57 nbyb=416) MONOCYTES ABSOLUTE COUNT (BEAKER) (test dfjf=655) 0.87 K/ L 0.30-0.82 EOSINOPHILS ABSOLUTE COUNT (BEAKER) (test 0.19 K/ L 0.04-0.54 skzi=586) BASOPHILS ABSOLUTE COUNT (BEAKER) (test kyxh=655) 0.01 K/ L 0.01-0.08 IMMATURE GRANULOCYTES-RELATIVE PERCENT (BEAKER) 1 % 0-1 (test khuq=3252) HEPATIC FUNCTION [id number] 11:05:00 Test Item Value Reference Range Comments TOTAL PROTEIN (BEAKER) (test jxxo=388) 5.7 gm/dL 6.0-8.3 ALBUMIN (BEAKER) (test xwlk=8358) 3.9 g/dL 3.5-5.0 BILIRUBIN TOTAL (BEAKER) (test wzoz=097) 4.9 mg/dL 0.2-1.2 BILIRUBIN DIRECT (BEAKER) (test ohpc=153) 2.0 mg/dL 0.1-0.5 ALKALINE PHOSPHATASE (BEAKER) (test vivv=429) 98 U/L 40-150 AST (SGOT) (BEAKER) (test fgfz=723) 19 U/L 5-34 ALT (SGPT) (BEAKER) (test xhdx=532) 8 U/L 6-55 Specimen moderately ictericBASIC METABOLIC [id number] 10:06:00 Test Item Value Reference Range Comments SODIUM (BEAKER) (test 132 meq/L 136-145 ojle=778) POTASSIUM (BEAKER) (test 5.0 meq/L 3.5-5.1 uger=585) CHLORIDE (BEAKER) (test 97 meq/L 98-107 jtkb=928) CO2 (BEAKER) (test 25 meq/L 22-29 daku=805) BLOOD UREA NITROGEN 17 mg/dL 7-21 (BEAKER) (test moxd=469) CREATININE (BEAKER) (test 1.33 mg/dL 0.57-1.25 cwqa=977) GLUCOSE RANDOM (BEAKER) 181 mg/dL 70-105 (test sxbd=616) CALCIUM (BEAKER) (test 9.4 mg/dL 8.4-10.2 gmli=312) EGFR (BEAKER) (test 56 mL/min/1.73 sq m ESTIMATED GFR IS NOT ffps=3186) ACCURATE CREATININE CLEARANCE IN PREDICTING GLOMERULAR FILTRATION RATE. ESTIMATED GFR IS NOT APPLICABLE FOR DIALYSIS PATIENTS. Specimen moderately ictericCBC W/PLT COUNT & AUTO [id number] 07: 45:00 Test Item Value Reference Range Comments WHITE BLOOD CELL COUNT (BEAKER) (test fhvw=205) 3.4 K/ L 3.5-10.5 RED BLOOD CELL COUNT (BEAKER) (test rjwf=379) 2.26 M/ L 4.63-6.08 HEMOGLOBIN (BEAKER) (test njnw=627) 7.0 GM/DL 13.7-17.5 HEMATOCRIT (BEAKER) (test wrpe=520) 21.6 % 40.1-51.0 MEAN CORPUSCULAR VOLUME (BEAKER) (test qyfg=365) 95.6 fL 79.0-92.2 MEAN CORPUSCULAR HEMOGLOBIN (BEAKER) (test 31.0 pg 25.7-32.2 wlju=278) MEAN CORPUSCULAR HEMOGLOBIN CONC (BEAKER) (test 32.4 GM/DL 32.3-36.5 povp=043) RED CELL DISTRIBUTION WIDTH (BEAKER) (test 17.3 % 11.6-14.4 zprr=780) PLATELET COUNT (BEAKER) (test tbht=602) 66 K/CU MM 150-450 MEAN PLATELET VOLUME (BEAKER) (test etzu=080) 9.8 fL 9.4-12.4 NUCLEATED RED BLOOD CELLS (BEAKER) (test 0 /100 WBC 0-0 mvwq=275) NEUTROPHILS RELATIVE PERCENT (BEAKER) (test 87 % tvtl=131) LYMPHOCYTES RELATIVE PERCENT (BEAKER) (test 7 % kqxf=990) MONOCYTES RELATIVE PERCENT (BEAKER) (test 5 % doqc=288) EOSINOPHILS RELATIVE PERCENT (BEAKER) (test 0 % gncq=220) BASOPHILS RELATIVE PERCENT (BEAKER) (test 0 % ejvv=100) NEUTROPHILS ABSOLUTE COUNT (BEAKER) (test 2.94 K/ L 1.78-5.38 ebjd=348) LYMPHOCYTES ABSOLUTE COUNT (BEAKER) (test 0.23 K/ L 1.32-3.57 vgya=749) MONOCYTES ABSOLUTE COUNT (BEAKER) (test fkou=079) 0.17 K/ L 0.30-0.82 EOSINOPHILS ABSOLUTE COUNT (BEAKER) (test 0.00 K/ L 0.04-0.54 ddgx=344) BASOPHILS ABSOLUTE COUNT (BEAKER) (test keqa=962) 0.00 K/ L 0.01-0.08 IMMATURE GRANULOCYTES-RELATIVE PERCENT (BEAKER) 1 % 0-1 (test ulde=7582) PROTHROMBIN [id number] 06:06:00 Test Item Value Reference Range Comments PROTIME (BEAKER) (test cjfx=430) 19.1 seconds 11.7-14.7 INR (BEAKER) (test zucc=383) 1.6 <=5.9 RECOMMENDED COUMADIN/WARFARIN INR THERAPY RANGESSTANDARD DOSE: 2.0 - 3.0 Includes: PROPHYLAXIS forvenous thrombosis, systemic embolization; TREATMENT for venous thrombosis and/or pulmonary embolus.HIGH RISK: Target INR is 2.5-3.5 for patients with mechanical heart valves.[id number] 15:35:00 Test Item Value Reference Range Comments PROTIME (BEAKER) (test tlvr=707) 20.3 seconds 11.7-14.7 INR (BEAKER) (test ekak=325) 1.7 <=5.9 PARTIAL THROMBOPLASTIN TIME (BEAKER) (test 46.2 seconds 22.5-36.0 wdtk=368) RECOMMENDED COUMADIN/WARFARIN INR THERAPY RANGESSTANDARD DOSE: 2.0 - 3.0 Includes: PROPHYLAXIS forvenous thrombosis, systemic embolization; TREATMENT for venous thrombosis and/or pulmonary embolus.HIGH RISK: Target INR is 2.5-3.5 for patients with mechanical heart valves.30 minutes after administration of Klrjwtl76 minutes after administration of KcentraPROTHROMBIN TIME/[id number] 15:33:00 Test Item Value Reference Range Comments PROTIME (BEAKER) (test qzva=945) 20.1 seconds 11.7-14.7 INR (BEAKER) (test aauz=981) 1.7 <=5.9 RECOMMENDED COUMADIN/WARFARIN INR THERAPY RANGESSTANDARD DOSE: 2.0 - 3.0 Includes: PROPHYLAXIS forvenous thrombosis, systemic embolization; TREATMENT for venous thrombosis and/or pulmonary embolus.HIGH RISK: Target INR is 2.5-3.5 for patients with mechanical heart valves.Please draw 30 mins after Kcentra doseBODY FLUID CULTURE + GRAM [id number] 11:29:00 Test Item Value Reference Range Comments CULTURE (BEAKER) (test hfpj=6705) No growth GRAM STAIN RESULT (BEAKER) (test <1+ WBCs kews=9229) GRAM STAIN RESULT (BEAKER) (test No organisms seen pitw=09639) CT, [id number] 10:30:00FINAL REPORT HISTORY : r/o intra abdominal [...] MDReport Verified Date/Time: 05/08/2018 10:30:57 Reading Location: [facility] Diagnostic Imaging Reading Room - [place] [id number] 112 CBC W/PLT COUNT & AUTO [id number] 07:27:00 Test Item Value Reference Range Comments WHITE BLOOD CELL COUNT (BEAKER) (test khbd=997) 3.1 K/ L 3.5-10.5 RED BLOOD CELL COUNT (BEAKER) (test hnys=925) 2.27 M/ L 4.63-6.08 HEMOGLOBIN (BEAKER) (test vxjh=145) 7.1 GM/DL 13.7-17.5 HEMATOCRIT (BEAKER) (test fopu=973) 21.4 % 40.1-51.0 MEAN CORPUSCULAR VOLUME (BEAKER) (test ldjx=051) 94.3 fL 79.0-92.2 MEAN CORPUSCULAR HEMOGLOBIN (BEAKER) (test 31.3 pg 25.7-32.2 nyjm=660) MEAN CORPUSCULAR HEMOGLOBIN CONC (BEAKER) (test 33.2 GM/DL 32.3-36.5 umhu=851) RED CELL DISTRIBUTION WIDTH (BEAKER) (test 17.5 % 11.6-14.4 ejyd=960) PLATELET COUNT (BEAKER) (test kehg=652) 43 K/CU MM 150-450 MEAN PLATELET VOLUME (BEAKER) (test clfa=587) 8.7 fL 9.4-12.4 NUCLEATED RED BLOOD CELLS (BEAKER) (test 0 /100 WBC 0-0 eroi=895) NEUTROPHILS RELATIVE PERCENT (BEAKER) (test 60 % bbxm=999) LYMPHOCYTES RELATIVE PERCENT (BEAKER) (test 16 % nmta=938) MONOCYTES RELATIVE PERCENT (BEAKER) (test 17 % wzud=550) EOSINOPHILS RELATIVE PERCENT (BEAKER) (test 7 % yfgt=011) BASOPHILS RELATIVE PERCENT (BEAKER) (test 0 % sciy=447) NEUTROPHILS ABSOLUTE COUNT (BEAKER) (test 1.85 K/ L 1.78-5.38 njkg=976) LYMPHOCYTES ABSOLUTE COUNT (BEAKER) (test 0.48 K/ L 1.32-3.57 wsmk=580) MONOCYTES ABSOLUTE COUNT (BEAKER) (test oqbn=502) 0.54 K/ L 0.30-0.82 EOSINOPHILS ABSOLUTE COUNT (BEAKER) (test 0.22 K/ L 0.04-0.54 yadf=609) BASOPHILS ABSOLUTE COUNT (BEAKER) (test sskc=753) 0.00 K/ L 0.01-0.08 IMMATURE GRANULOCYTES-RELATIVE PERCENT (BEAKER) 0 % 0-1 (test pfdy=0178) CBC W/PLT COUNT & AUTO [id number] 07:26:00 Test Item Value Reference Range Comments WHITE BLOOD CELL COUNT (BEAKER) (test dmap=261) 2.9 K/ L 3.5-10.5 RED BLOOD CELL COUNT (BEAKER) (test qvrn=243) 2.25 M/ L 4.63-6.08 HEMOGLOBIN (BEAKER) (test lzwx=005) 7.1 GM/DL 13.7-17.5 HEMATOCRIT (BEAKER) (test poth=325) 21.4 % 40.1-51.0 MEAN CORPUSCULAR VOLUME (BEAKER) (test aprb=799) 95.1 fL 79.0-92.2 MEAN CORPUSCULAR HEMOGLOBIN (BEAKER) (test 31.6 pg 25.7-32.2 twei=485) MEAN CORPUSCULAR HEMOGLOBIN CONC (BEAKER) (test 33.2 GM/DL 32.3-36.5 vmjv=507) RED CELL DISTRIBUTION WIDTH (BEAKER) (test 17.5 % 11.6-14.4 qkwm=606) PLATELET COUNT (BEAKER) (test kpgu=219) 44 K/CU MM 150-450 MEAN PLATELET VOLUME (BEAKER) (test janv=411) 9.3 fL 9.4-12.4 NUCLEATED RED BLOOD CELLS (BEAKER) (test 0 /100 WBC 0-0 ksue=272) NEUTROPHILS RELATIVE PERCENT (BEAKER) (test 59 % ckzc=715) LYMPHOCYTES RELATIVE PERCENT (BEAKER) (test 16 % kufs=785) MONOCYTES RELATIVE PERCENT (BEAKER) (test 17 % gcuo=417) EOSINOPHILS RELATIVE PERCENT (BEAKER) (test 7 % svbn=478) BASOPHILS RELATIVE PERCENT (BEAKER) (test 0 % lzvy=039) NEUTROPHILS ABSOLUTE COUNT (BEAKER) (test 1.72 K/ L 1.78-5.38 snnz=765) LYMPHOCYTES ABSOLUTE COUNT (BEAKER) (test 0.46 K/ L 1.32-3.57 bpep=717) MONOCYTES ABSOLUTE COUNT (BEAKER) (test qaps=846) 0.51 K/ L 0.30-0.82 EOSINOPHILS ABSOLUTE COUNT (BEAKER) (test 0.21 K/ L 0.04-0.54 whiv=262) BASOPHILS ABSOLUTE COUNT (BEAKER) (test yneq=031) 0.01 K/ L 0.01-0.08 IMMATURE GRANULOCYTES-RELATIVE PERCENT (BEAKER) 1 % 0-1 (test fnch=0234) BASIC METABOLIC [id number] 07:00:00 Test Item Value Reference Range Comments SODIUM (BEAKER) (test 130 meq/L 136-145 abkn=986) POTASSIUM (BEAKER) (test 3.6 meq/L 3.5-5.1 zgyn=645) CHLORIDE (BEAKER) (test 94 meq/L 98-107 xtrz=692) CO2 (BEAKER) (test 27 meq/L 22-29 sdza=467) BLOOD UREA NITROGEN 19 mg/dL 7-21 (BEAKER) (test cuin=517) CREATININE (BEAKER) (test 1.40 mg/dL 0.57-1.25 esml=345) GLUCOSE RANDOM (BEAKER) 111 mg/dL 70-105 (test bpaw=975) CALCIUM (BEAKER) (test 9.2 mg/dL 8.4-10.2 avic=737) EGFR (BEAKER) (test 53 mL/min/1.73 sq m ESTIMATED GFR IS NOT bpkg=1009) ACCURATE CREATININE CLEARANCE IN PREDICTING GLOMERULAR FILTRATION RATE. ESTIMATED GFR IS NOT APPLICABLE FOR DIALYSIS PATIENTS. Specimen moderately ictericCOMPREHENSIVE METABOLIC [id number] 07:00:00 Test Item Value Reference Range Comments TOTAL PROTEIN (BEAKER) 5.7 gm/dL 6.0-8.3 (test znzv=600) ALBUMIN (BEAKER) (test 4.0 g/dL 3.5-5.0 sjrv=9128) ALKALINE PHOSPHATASE 92 U/L 40-150 (BEAKER) (test ejzp=451) BILIRUBIN TOTAL (BEAKER) 4.6 mg/dL 0.2-1.2 (test wndw=842) SODIUM (BEAKER) (test 130 meq/L 136-145 itjq=077) POTASSIUM (BEAKER) (test 3.6 meq/L 3.5-5.1 rwce=612) CHLORIDE (BEAKER) (test 94 meq/L 98-107 ulhz=558) CO2 (BEAKER) (test 27 meq/L 22-29 lonq=254) BLOOD UREA NITROGEN 19 mg/dL 7-21 (BEAKER) (test pzaw=303) CREATININE (BEAKER) (test 1.40 mg/dL 0.57-1.25 ajoa=973) GLUCOSE RANDOM (BEAKER) 111 mg/dL 70-105 (test xveu=050) CALCIUM (BEAKER) (test 9.2 mg/dL 8.4-10.2 fhdh=920) AST (SGOT) (BEAKER) (test 16 U/L 5-34 fvst=007) ALT (SGPT) (BEAKER) (test 6 U/L 6-55 zzna=719) EGFR (BEAKER) (test 53 mL/min/1.73 sq m ESTIMATED GFR IS NOT mxjw=6432) ACCURATE CREATININE CLEARANCE IN PREDICTING GLOMERULAR FILTRATION RATE. ESTIMATED GFR IS NOT APPLICABLE FOR DIALYSIS PATIENTS. Specimen moderately ictericHEPATIC FUNCTION [id number] 07:00:00 Test Item Value Reference Range Comments TOTAL PROTEIN (BEAKER) (test cejw=855) 5.7 gm/dL 6.0-8.3 ALBUMIN (BEAKER) (test niod=8267) 4.0 g/dL 3.5-5.0 BILIRUBIN TOTAL (BEAKER) (test msxj=939) 4.6 mg/dL 0.2-1.2 BILIRUBIN DIRECT (BEAKER) (test jhnu=268) 1.8 mg/dL 0.1-0.5 ALKALINE PHOSPHATASE (BEAKER) (test hess=647) 92 U/L 40-150 AST (SGOT) (BEAKER) (test hkql=318) 16 U/L 5-34 ALT (SGPT) (BEAKER) (test gvwx=362) 6 U/L 6-55 Specimen moderately [id number] 06:57:00 Test Item Value Reference Range Comments PARTIAL THROMBOPLASTIN TIME (BEAKER) (test 47.9 seconds 22.5-36.0 prkq=806) PROTHROMBIN [id number] 06:55:00 Test Item Value Reference Range Comments PROTIME (BEAKER) (test fxop=037) 23.7 seconds 11.7-14.7 INR (BEAKER) (test astb=588) 2.1 <=5.9 RECOMMENDED COUMADIN/WARFARIN INR THERAPY RANGESSTANDARD DOSE: 2.0 - 3.0 Includes: PROPHYLAXIS forvenous thrombosis, systemic embolization; TREATMENT for venous thrombosis and/or pulmonary embolus.HIGH RISK: Target INR is 2.5-3.5 for patients with mechanical heart valves.MR, SPINE, LUMBAR, WITHOUT [id number] 16:57:00FINAL REPORT MRI lumbar spine without contrast [...] Bain Verified Date/Time: 05/07/2018 16:57:00 Reading Location: [facility] Radiology Reading Room LACTIC ACID, VENOUS, WHOLE [id number] 14:13:00 Test Item Value Reference Range Comments LACTATE BLOOD VENOUS (2) (BEAKER) (test 2.6 mmol/L 0.5-2.2 blsk=7845) Effective 02/28/2016: Units/Reference Range ChangeNew: 0.5-2.2 mmol/L Previous: 5 -20 mg/dLSpecimen slightly ictericHEMOGLOBIN AND [id number] 13:51:00 Test Item Value Reference Range Comments HEMOGLOBIN (BEAKER) (test urly=885) 7.1 GM/DL 13.7-17.5 HEMATOCRIT (BEAKER) (test blvv=235) 21.7 % 40.1-51.0 U/S, RENAL, [id number] 09:48:00Reason for exam:->AKIFINAL REPORT Renal ultrasound Clinical [...] MDReport Verified Date/Time: 05/07/2018 09:48:55 Reading Location: [address] Ultrasound Reading Room Electronically signed by: REECE HAQUE MD on 09:[id number] 09:04:00 Test Item Value Reference Range Comments MAGNESIUM (BEAKER) (test gyfk=530) 2.0 mg/dL 1.6-2.6 COMPREHENSIVE METABOLIC [id number] 09:04:00 Test Item Value Reference Range Comments TOTAL PROTEIN (BEAKER) 5.2 gm/dL 6.0-8.3 (test xsak=704) ALBUMIN (BEAKER) (test 3.5 g/dL 3.5-5.0 vepu=1268) ALKALINE PHOSPHATASE 96 U/L 40-150 (BEAKER) (test dqov=128) BILIRUBIN TOTAL (BEAKER) 4.1 mg/dL 0.2-1.2 (test khau=584) SODIUM (BEAKER) (test 129 meq/L 136-145 stui=921) POTASSIUM (BEAKER) (test 3.8 meq/L 3.5-5.1 uyod=658) CHLORIDE (BEAKER) (test 96 meq/L 98-107 ihff=465) CO2 (BEAKER) (test 25 meq/L 22-29 oqpp=963) BLOOD UREA NITROGEN 22 mg/dL 7-21 (BEAKER) (test bxcs=767) CREATININE (BEAKER) (test 1.57 mg/dL 0.57-1.25 dlin=514) GLUCOSE RANDOM (BEAKER) 122 mg/dL 70-105 (test foes=841) CALCIUM (BEAKER) (test 8.9 mg/dL 8.4-10.2 pdtx=109) AST (SGOT) (BEAKER) (test 15 U/L 5-34 emsc=754) ALT (SGPT) (BEAKER) (test 7 U/L 6-55 wnbg=549) EGFR (BEAKER) (test 47 mL/min/1.73 sq m ESTIMATED GFR IS NOT jyac=9721) ACCURATE CREATININE CLEARANCE IN PREDICTING GLOMERULAR FILTRATION RATE. ESTIMATED GFR IS NOT APPLICABLE FOR DIALYSIS PATIENTS. Specimen moderately ictericHEPATIC FUNCTION [id number] 09:04:00 Test Item Value Reference Range Comments TOTAL PROTEIN (BEAKER) (test qbnd=580) 5.2 gm/dL 6.0-8.3 ALBUMIN (BEAKER) (test nqtm=9306) 3.5 g/dL 3.5-5.0 BILIRUBIN TOTAL (BEAKER) (test awkk=997) 4.1 mg/dL 0.2-1.2 BILIRUBIN DIRECT (BEAKER) (test mhft=577) 1.8 mg/dL 0.1-0.5 ALKALINE PHOSPHATASE (BEAKER) (test xshs=739) 96 U/L 40-150 AST (SGOT) (BEAKER) (test bjlh=952) 15 U/L 5-34 ALT (SGPT) (BEAKER) (test ulew=091) 7 U/L 6-55 Specimen moderately ictericCBC W/PLT COUNT & AUTO [id number] 08: 26:00 Test Item Value Reference Range Comments WHITE BLOOD CELL COUNT (BEAKER) (test qxuh=235) 2.7 K/ L 3.5-10.5 RED BLOOD CELL COUNT (BEAKER) (test ijxh=279) 2.13 M/ L 4.63-6.08 HEMOGLOBIN (BEAKER) (test lvmh=682) 6.8 GM/DL 13.7-17.5 HEMATOCRIT (BEAKER) (test bfyv=954) 19.5 % 40.1-51.0 MEAN CORPUSCULAR VOLUME (BEAKER) (test hdua=426) 91.5 fL 79.0-92.2 MEAN CORPUSCULAR HEMOGLOBIN (BEAKER) (test 31.9 pg 25.7-32.2 jfbf=903) MEAN CORPUSCULAR HEMOGLOBIN CONC (BEAKER) (test 34.9 GM/DL 32.3-36.5 gqpd=593) RED CELL DISTRIBUTION WIDTH (BEAKER) (test 17.5 % 11.6-14.4 samy=999) PLATELET COUNT (BEAKER) (test anbw=376) 52 K/CU MM 150-450 MEAN PLATELET VOLUME (BEAKER) (test exml=026) 9.1 fL 9.4-12.4 NUCLEATED RED BLOOD CELLS (BEAKER) (test 0 /100 WBC 0-0 lubf=814) NEUTROPHILS RELATIVE PERCENT (BEAKER) (test 62 % usfv=603) LYMPHOCYTES RELATIVE PERCENT (BEAKER) (test 16 % ffll=994) MONOCYTES RELATIVE PERCENT (BEAKER) (test 17 % awnx=683) EOSINOPHILS RELATIVE PERCENT (BEAKER) (test 4 % stvz=775) BASOPHILS RELATIVE PERCENT (BEAKER) (test 0 % mvtc=768) NEUTROPHILS ABSOLUTE COUNT (BEAKER) (test 1.66 K/ L 1.78-5.38 shup=839) LYMPHOCYTES ABSOLUTE COUNT (BEAKER) (test 0.43 K/ L 1.32-3.57 mcws=302) MONOCYTES ABSOLUTE COUNT (BEAKER) (test pxzp=666) 0.44 K/ L 0.30-0.82 EOSINOPHILS ABSOLUTE COUNT (BEAKER) (test 0.11 K/ L 0.04-0.54 wtwk=847) BASOPHILS ABSOLUTE COUNT (BEAKER) (test vohg=500) 0.00 K/ L 0.01-0.08 IMMATURE GRANULOCYTES-RELATIVE PERCENT (BEAKER) 1 % 0-1 (test qzii=4640) PROTHROMBIN [id number] 08:08:00 Test Item Value Reference Range Comments PROTIME (BEAKER) (test xlab=270) 28.3 seconds 11.7-14.7 INR (BEAKER) (test jnpk=389) 2.7 <=5.9 RECOMMENDED COUMADIN/WARFARIN INR THERAPY RANGESSTANDARD DOSE: 2.0 - 3.0 Includes: PROPHYLAXIS forvenous thrombosis, systemic embolization; TREATMENT for venous thrombosis and/or pulmonary embolus.HIGH RISK: Target INR is 2.5-3.5 for patients with mechanical heart valves.[id number] 19:47:00 Test Item Value Reference Range Comments SODIUM (BEAKER) (test pnrk=296) 129 meq/L 136-145 POTASSIUM (BEAKER) (test ruej=582) 4.6 meq/L 3.5-5.1 CHLORIDE (BEAKER) (test vuww=532) 96 meq/L 98-107 CO2 (BEAKER) (test oyrc=814) 22 meq/L 22-29 Call [id number] 19:27:00 Test Item Value Reference Range Comments HEMOGLOBIN (BEAKER) (test hphn=679) 7.1 GM/DL 13.7-17.5 HEMATOCRIT (BEAKER) (test qfio=307) 21.4 % 40.1-51.0 Draw after transfusion of 1u RBC, notify hospitalist if Hgb remains less than 7.0HEMOGLOBIN AND [id number] 11:52:00 Test Item Value Reference Range Comments HEMOGLOBIN (BEAKER) (test ckjb=295) 6.3 GM/DL 13.7-17.5 HEMATOCRIT (BEAKER) (test cazq=960) 18.9 % 40.1-51.0 Notify Hepatology if Hgb< 7.0YUNIOR Sandoval PA-CPager#: .BASIC METABOLIC [id number] 05:55:00 Test Item Value Reference Range Comments SODIUM (BEAKER) (test 129 meq/L 136-145 hzgs=959) POTASSIUM (BEAKER) (test 5.2 meq/L 3.5-5.1 uffl=495) CHLORIDE (BEAKER) (test 97 meq/L 98-107 zolt=268) CO2 (BEAKER) (test 22 meq/L 22-29 lasb=028) BLOOD UREA NITROGEN 28 mg/dL 7-21 (BEAKER) (test vjoq=261) CREATININE (BEAKER) (test 1.95 mg/dL 0.57-1.25 sniz=463) GLUCOSE RANDOM (BEAKER) 102 mg/dL 70-105 (test isyx=197) CALCIUM (BEAKER) (test 9.4 mg/dL 8.4-10.2 gwub=330) EGFR (BEAKER) (test 36 mL/min/1.73 sq m ESTIMATED GFR IS NOT npqx=4666) ACCURATE CREATININE CLEARANCE IN PREDICTING GLOMERULAR FILTRATION RATE. ESTIMATED GFR IS NOT APPLICABLE FOR DIALYSIS PATIENTS. Specimen slightly ictericHEPATIC FUNCTION [id number] 05:55:00 Test Item Value Reference Range Comments TOTAL PROTEIN (BEAKER) (test sleg=105) 5.6 gm/dL 6.0-8.3 ALBUMIN (BEAKER) (test awps=9676) 3.4 g/dL 3.5-5.0 BILIRUBIN TOTAL (BEAKER) (test vdfc=759) 3.7 mg/dL 0.2-1.2 BILIRUBIN DIRECT (BEAKER) (test mvzv=464) 2.5 mg/dL 0.1-0.5 ALKALINE PHOSPHATASE (BEAKER) (test dcfy=157) 108 U/L 40-150 AST (SGOT) (BEAKER) (test ovpe=933) 17 U/L 5-34 ALT (SGPT) (BEAKER) (test qyvm=408) 7 U/L 6-55 Specimen slightly ictericCBC W/PLT COUNT & AUTO [id number] 05:42 :00 Test Item Value Reference Range Comments WHITE BLOOD CELL COUNT (BEAKER) (test jkdk=633) 3.7 K/ L 3.5-10.5 RED BLOOD CELL COUNT (BEAKER) (test urtq=672) 2.10 M/ L 4.63-6.08 HEMOGLOBIN (BEAKER) (test vvyb=981) 6.5 GM/DL 13.7-17.5 HEMATOCRIT (BEAKER) (test bvkf=059) 19.8 % 40.1-51.0 MEAN CORPUSCULAR VOLUME (BEAKER) (test ruyv=915) 94.3 fL 79.0-92.2 MEAN CORPUSCULAR HEMOGLOBIN (BEAKER) (test 31.0 pg 25.7-32.2 tojr=047) MEAN CORPUSCULAR HEMOGLOBIN CONC (BEAKER) (test 32.8 GM/DL 32.3-36.5 twpx=593) RED CELL DISTRIBUTION WIDTH (BEAKER) (test 16.4 % 11.6-14.4 ljga=389) PLATELET COUNT (BEAKER) (test jktt=929) 54 K/CU MM 150-450 MEAN PLATELET VOLUME (BEAKER) (test qjth=865) 9.8 fL 9.4-12.4 NUCLEATED RED BLOOD CELLS (BEAKER) (test 0 /100 WBC 0-0 yyib=785) NEUTROPHILS RELATIVE PERCENT (BEAKER) (test 62 % joix=900) LYMPHOCYTES RELATIVE PERCENT (BEAKER) (test 15 % rexe=755) MONOCYTES RELATIVE PERCENT (BEAKER) (test 18 % xeax=818) EOSINOPHILS RELATIVE PERCENT (BEAKER) (test 3 % lxxv=351) BASOPHILS RELATIVE PERCENT (BEAKER) (test 0 % ciew=736) NEUTROPHILS ABSOLUTE COUNT (BEAKER) (test 2.27 K/ L 1.78-5.38 qpsq=854) LYMPHOCYTES ABSOLUTE COUNT (BEAKER) (test 0.56 K/ L 1.32-3.57 hvkk=474) MONOCYTES ABSOLUTE COUNT (BEAKER) (test ouwb=694) 0.66 K/ L 0.30-0.82 EOSINOPHILS ABSOLUTE COUNT (BEAKER) (test 0.12 K/ L 0.04-0.54 vffk=893) BASOPHILS ABSOLUTE COUNT (BEAKER) (test lswr=996) 0.01 K/ L 0.01-0.08 IMMATURE GRANULOCYTES-RELATIVE PERCENT (BEAKER) 1 % 0-1 (test xosl=7569) PROTHROMBIN [id number] 05:34:00 Test Item Value Reference Range Comments PROTIME (BEAKER) (test yqtn=813) 21.7 seconds 11.7-14.7 INR (BEAKER) (test earf=190) 1.9 <=5.9 RECOMMENDED COUMADIN/WARFARIN INR THERAPY RANGESSTANDARD DOSE: 2.0 - 3.0 Includes: PROPHYLAXIS forvenous thrombosis, systemic embolization; TREATMENT for venous thrombosis and/or pulmonary embolus.HIGH RISK: Target INR is 2.5-3.5 for patients with mechanical heart valves.EOSINOPHIL SMEAR, [id number] 21: 51:00 Test Item Value Reference Range Comments EOSINOPHIL SMEAR, URINE (BEAKER) (test No EOS seen No EOS seen dqer=0358) BODY FLUID CELL COUNT WITH [id number] 21:42:00 Test Item Value Reference Range Comments APPEARANCE FLUID (BEAKER) (test aiiw=725) Hazy Clear COLOR FLUID (BEAKER) (test xbro=499) Yellow Colorless, Straw RBC FLUID (BEAKER) (test rzfp=204) 70 /cu mm <=1 ADJUSTED WBC FLUID (BEAKER) (test wjdm=0327) 44 /cu mm <=5 LINING CELLS (BEAKER) (test hoyn=5097) 8 /cu mm <=1 NEUTROPHILS FLUID (BEAKER) (test svnt=3894) 0 % LYMPHS FLUID (BEAKER) (test wpuw=619) 11 % MONO/MACROPHAGE FLUID (BEAKER) (test rqpn=080) 89 % EOSINOPHILS FLUID (BEAKER) (test yuqm=235) 0 % BASO FLUID (BEAKER) (test axvo=911) 0 % CONTAINER BODY FLUID (BEAKER) (test mzwc=5266) EDTA Tube OSMOLALITY, [id number] 19:46:00 Test Item Value Reference Range Comments OSMOLALITY URINE (BEAKER) (test woha=906) 355 mOsm/kg 40-1400 SODIUM, RANDOM [id number] 19:35:00 Test Item Value Reference Range Comments SODIUM URINE (BEAKER) (test eeoc=524) < meq/L Reference Range: No NormalsPROTEIN, RANDOM [id number] 19:27:00 Test Item Value Reference Range Comments PROTEIN, URINE (BEAKER) (test agkk=9227) 7 mg/dL 0-14 CREATININE, RANDOM [id number] 19:25:00 Test Item Value Reference Range Comments CREATININE URINE (BEAKER) (test skvc=850) 150.3 mg/dL Reference Range: No [id number] 16:26:00 Test Item Value Reference Range Comments PREALBUMIN (BEAKER) (test njso=359) 5 mg/dL 14-45 Listed for OLT - Nutrition Surveillance ([facility] Hepatology Transplant Team)U/S, [id number] 14:56:00Reason for exam:->ascites - limit to 5L fluid removal, pt has AKIShould this be performed at the bedside?->NoFINAL REPORT Paracentesis: Performing MD: eMggan Escoto M.D.Preoperative Diagnosis:AscitesPostoperative Diagnosis: AscitesAssistant: noneSpecimen: As [...] MDReport Verified Date/Time: 05/05/2018 14:56:27 Reading Location: [address] Ultrasound Reading Room BASI METABOLIC [id number] 09:36:00 Test Item Value Reference Range Comments SODIUM (BEAKER) (test 125 meq/L 136-145 iyoz=031) POTASSIUM (BEAKER) (test 4.2 meq/L 3.5-5.1 bdxr=863) CHLORIDE (BEAKER) (test 95 meq/L 98-107 yale=284) CO2 (BEAKER) (test 23 meq/L 22-29 hpdq=007) BLOOD UREA NITROGEN 29 mg/dL 7-21 (BEAKER) (test mlcn=461) CREATININE (BEAKER) (test 2.01 mg/dL 0.57-1.25 iiqw=494) GLUCOSE RANDOM (BEAKER) 112 mg/dL 70-105 (test goyi=543) CALCIUM (BEAKER) (test 9.2 mg/dL 8.4-10.2 sxxe=650) EGFR (BEAKER) (test 35 mL/min/1.73 sq m ESTIMATED GFR IS NOT khit=6798) ACCURATE CREATININE CLEARANCE IN PREDICTING GLOMERULAR FILTRATION RATE. ESTIMATED GFR IS NOT APPLICABLE FOR DIALYSIS PATIENTS. Specimen slightly ictericHEPATIC FUNCTION [id number] 09:36:00 Test Item Value Reference Range Comments TOTAL PROTEIN (BEAKER) (test xumh=531) 5.3 gm/dL 6.0-8.3 ALBUMIN (BEAKER) (test ifip=2337) 3.0 g/dL 3.5-5.0 BILIRUBIN TOTAL (BEAKER) (test hshi=942) 4.1 mg/dL 0.2-1.2 BILIRUBIN DIRECT (BEAKER) (test ipvh=438) 2.8 mg/dL 0.1-0.5 ALKALINE PHOSPHATASE (BEAKER) (test zxoo=786) 115 U/L 40-150 AST (SGOT) (BEAKER) (test rlvj=903) 20 U/L 5-34 ALT (SGPT) (BEAKER) (test sguv=135) 9 U/L 6-55 Specimen slightly ictericCBC W/PLT COUNT & AUTO [id number] 09:28 :00 Test Item Value Reference Range Comments WHITE BLOOD CELL COUNT (BEAKER) (test nljp=338) 4.4 K/ L 3.5-10.5 RED BLOOD CELL COUNT (BEAKER) (test oqfk=456) 2.20 M/ L 4.63-6.08 HEMOGLOBIN (BEAKER) (test ntwp=023) 7.1 GM/DL 13.7-17.5 HEMATOCRIT (BEAKER) (test emuk=859) 21.1 % 40.1-51.0 MEAN CORPUSCULAR VOLUME (BEAKER) (test gliy=259) 95.9 fL 79.0-92.2 MEAN CORPUSCULAR HEMOGLOBIN (BEAKER) (test 32.3 pg 25.7-32.2 rypp=763) MEAN CORPUSCULAR HEMOGLOBIN CONC (BEAKER) (test 33.6 GM/DL 32.3-36.5 izzh=732) RED CELL DISTRIBUTION WIDTH (BEAKER) (test 16.7 % 11.6-14.4 rgyc=300) PLATELET COUNT (BEAKER) (test cxfk=238) 60 K/CU MM 150-450 MEAN PLATELET VOLUME (BEAKER) (test xwyt=823) 9.7 fL 9.4-12.4 NUCLEATED RED BLOOD CELLS (BEAKER) (test 0 /100 WBC 0-0 ttes=285) NEUTROPHILS RELATIVE PERCENT (BEAKER) (test 71 % icwv=754) LYMPHOCYTES RELATIVE PERCENT (BEAKER) (test 9 % monh=727) MONOCYTES RELATIVE PERCENT (BEAKER) (test 16 % dfxa=021) EOSINOPHILS RELATIVE PERCENT (BEAKER) (test 3 % csge=789) BASOPHILS RELATIVE PERCENT (BEAKER) (test 0 % wrcn=874) NEUTROPHILS ABSOLUTE COUNT (BEAKER) (test 3.10 K/ L 1.78-5.38 defu=697) LYMPHOCYTES ABSOLUTE COUNT (BEAKER) (test 0.39 K/ L 1.32-3.57 vwzk=810) MONOCYTES ABSOLUTE COUNT (BEAKER) (test eouk=620) 0.69 K/ L 0.30-0.82 EOSINOPHILS ABSOLUTE COUNT (BEAKER) (test 0.12 K/ L 0.04-0.54 xgil=792) BASOPHILS ABSOLUTE COUNT (BEAKER) (test yvva=929) 0.01 K/ L 0.01-0.08 IMMATURE GRANULOCYTES-RELATIVE PERCENT (BEAKER) 1 % 0-1 (test djxc=7971) PROTHROMBIN [id number] 09:07:00 Test Item Value Reference Range Comments PROTIME (BEAKER) (test vzqg=190) 21.6 seconds 11.7-14.7 INR (BEAKER) (test jzet=138) 1.9 <=5.9 RECOMMENDED COUMADIN/WARFARIN INR THERAPY RANGESSTANDARD DOSE: 2.0 - 3.0 Includes: PROPHYLAXIS forvenous thrombosis, systemic embolization; TREATMENT for venous thrombosis and/or pulmonary embolus.HIGH RISK: Target INR is 2.5-3.5 for patients with mechanical heart valves.[id number] 13:59:00 Test Item Value Reference Range Comments POC-CREATININE (BEAKER) 2.0 mg/dL 0.6-1.3 TESTED AT [facility] [address] [facility] (test rzho=2513) [facility] [address] POC-EGFR (BEAKER) (test 35 mL/min/1.73M2 myfc=0243) PET/CT, LIMITED AREA [id number] 08:25:00PET/ CT ChestReason for Exam:-> Elongated nodular [...] thighsAdditional imaging: NoneSerum blood glucose: 119CPT Code: 34162 FINDINGS:Head and Neck: There is no trisha [...] Hung Verified Date/Time: 03/31/2018 08:25:09 POCT- GLUCOSE [id number] 14:54:00 Test Item Value Reference Range Comments POC-GLUCOSE METER (BEAKER) 119 mg/dL 70-110 TESTED AT [facility] [address] [facility] (test bryv=5188) [facility] [address] COMPREHENSIVE METABOLIC [id number] 16:49:00 Test Item Value Reference Range Comments TOTAL PROTEIN (BEAKER) 6.2 gm/dL 6.0-8.3 (test syxv=397) ALBUMIN (BEAKER) (test 3.4 g/dL 3.5-5.0 hsbm=2261) ALKALINE PHOSPHATASE 139 U/L 40-150 (BEAKER) (test xfhj=911) BILIRUBIN TOTAL (BEAKER) 4.0 mg/dL 0.2-1.2 (test univ=376) SODIUM (BEAKER) (test 129 meq/L 136-145 xbqv=011) POTASSIUM (BEAKER) (test 4.3 meq/L 3.5-5.1 bxtj=611) CHLORIDE (BEAKER) (test 96 meq/L 98-107 fjez=591) CO2 (BEAKER) (test 22 meq/L 22-29 irsi=559) BLOOD UREA NITROGEN 28 mg/dL 7-21 (BEAKER) (test smzk=053) CREATININE (BEAKER) (test 1.51 mg/dL 0.57-1.25 hbgh=133) GLUCOSE RANDOM (BEAKER) 89 mg/dL 70-105 (test ailv=611) CALCIUM (BEAKER) (test 9.5 mg/dL 8.4-10.2 wegr=175) AST (SGOT) (BEAKER) (test 26 U/L 5-34 ubnz=838) ALT (SGPT) (BEAKER) (test 11 U/L 6-55 bpih=410) EGFR (BEAKER) (test 49 mL/min/1.73 sq m ESTIMATED GFR IS NOT ysop=0547) ACCURATE CREATININE CLEARANCE IN PREDICTING GLOMERULAR FILTRATION RATE. ESTIMATED GFR IS NOT APPLICABLE FOR DIALYSIS PATIENTS. Specimen slightly ictericBILIRUBIN, [id number] 16:49:00 Test Item Value Reference Range Comments BILIRUBIN DIRECT (BEAKER) (test hace=424) 2.8 mg/dL 0.1-0.5 PROTHROMBIN TIME/[id number] 16:36:00 Test Item Value Reference Range Comments PROTIME (BEAKER) (test snne=435) 19.0 seconds 11.7-14.7 INR (BEAKER) (test ikhn=905) 1.6 <=5.9 RECOMMENDED COUMADIN/WARFARIN INR THERAPY RANGESSTANDARD DOSE: 2.0 - 3.0 Includes: PROPHYLAXIS forvenous thrombosis, systemic embolization; TREATMENT for venous thrombosis and/or pulmonary embolus.HIGH RISK: Target INR is 2.5-3.5 for patients with mechanical heart valves.CBC W/PLT COUNT & AUTO [id number] 16:27:00 Test Item Value Reference Range Comments WHITE BLOOD CELL COUNT (BEAKER) (test dmcs=471) 6.0 K/ L 3.5-10.5 RED BLOOD CELL COUNT (BEAKER) (test zmcb=803) 2.74 M/ L 4.63-6.08 HEMOGLOBIN (BEAKER) (test nftw=757) 9.3 GM/DL 13.7-17.5 HEMATOCRIT (BEAKER) (test ftbj=868) 27.6 % 40.1-51.0 MEAN CORPUSCULAR VOLUME (BEAKER) (test jcag=490) 100.7 fL 79.0-92.2 MEAN CORPUSCULAR HEMOGLOBIN (BEAKER) (test 33.9 pg 25.7-32.2 qcsr=587) MEAN CORPUSCULAR HEMOGLOBIN CONC (BEAKER) (test 33.7 GM/DL 32.3-36.5 wjvi=769) RED CELL DISTRIBUTION WIDTH (BEAKER) (test 14.9 % 11.6-14.4 igqe=145) PLATELET COUNT (BEAKER) (test maja=552) 96 K/CU MM 150-450 MEAN PLATELET VOLUME (BEAKER) (test jcew=874) 9.4 fL 9.4-12.4 NUCLEATED RED BLOOD CELLS (BEAKER) (test 0 /100 WBC 0-0 ahcs=963) NEUTROPHILS RELATIVE PERCENT (BEAKER) (test 64 % wlls=101) LYMPHOCYTES RELATIVE PERCENT (BEAKER) (test 11 % rhnq=839) MONOCYTES RELATIVE PERCENT (BEAKER) (test 16 % bemm=478) EOSINOPHILS RELATIVE PERCENT (BEAKER) (test 7 % wgte=500) BASOPHILS RELATIVE PERCENT (BEAKER) (test 1 % voef=808) NEUTROPHILS ABSOLUTE COUNT (BEAKER) (test 3.83 K/ L 1.78-5.38 rxdd=797) LYMPHOCYTES ABSOLUTE COUNT (BEAKER) (test 0.66 K/ L 1.32-3.57 ndjz=499) MONOCYTES ABSOLUTE COUNT (BEAKER) (test hicr=438) 0.95 K/ L 0.30-0.82 EOSINOPHILS ABSOLUTE COUNT (BEAKER) (test 0.41 K/ L 0.04-0.54 sryc=701) BASOPHILS ABSOLUTE COUNT (BEAKER) (test iqjm=772) 0.03 K/ L 0.01-0.08 IMMATURE GRANULOCYTES-RELATIVE PERCENT (BEAKER) 2 % 0-1 (test govj=3052) BASIC METABOLIC [id number] 08:26:00 Test Item Value Reference Range Comments SODIUM (BEAKER) (test 127 meq/L 136-145 iixp=527) POTASSIUM (BEAKER) (test 4.3 meq/L 3.5-5.1 omsc=042) CHLORIDE (BEAKER) (test 96 meq/L 98-107 mksn=617) CO2 (BEAKER) (test 23 meq/L 22-29 xpzd=544) BLOOD UREA NITROGEN 25 mg/dL 7-21 (BEAKER) (test nqbo=450) CREATININE (BEAKER) (test 1.46 mg/dL 0.57-1.25 kcrb=651) GLUCOSE RANDOM (BEAKER) 130 mg/dL 70-105 (test bysj=434) CALCIUM (BEAKER) (test 9.1 mg/dL 8.4-10.2 hhhi=522) EGFR (BEAKER) (test 51 mL/min/1.73 sq m ESTIMATED GFR IS NOT easn=9418) ACCURATE CREATININE CLEARANCE IN PREDICTING GLOMERULAR FILTRATION RATE. ESTIMATED GFR IS NOT APPLICABLE FOR DIALYSIS PATIENTS. Specimen slightly ictericCBC (HEMOGRAM ONLY)2018-02-23 08:06:00 Test Item Value Reference Range Comments WHITE BLOOD CELL COUNT (BEAKER) (test dodc=252) 5.4 K/ L 3.5-10.5 RED BLOOD CELL COUNT (BEAKER) (test yuui=510) 2.64 M/ L 4.63-6.08 HEMOGLOBIN (BEAKER) (test prgj=993) 8.8 GM/DL 13.7-17.5 HEMATOCRIT (BEAKER) (test htec=725) 26.2 % 40.1-51.0 MEAN CORPUSCULAR VOLUME (BEAKER) (test xtjr=912) 99.2 fL 79.0-92.2 MEAN CORPUSCULAR HEMOGLOBIN (BEAKER) (test 33.3 pg 25.7-32.2 seae=062) MEAN CORPUSCULAR HEMOGLOBIN CONC (BEAKER) (test 33.6 GM/DL 32.3-36.5 ejod=234) RED CELL DISTRIBUTION WIDTH (BEAKER) (test 16.2 % 11.6-14.4 amnu=716) PLATELET COUNT (BEAKER) (test lbnf=749) 100 K/CU MM 150-450 MEAN PLATELET VOLUME (BEAKER) (test tsea=553) 8.7 fL 9.4-12.4 NUCLEATED RED BLOOD CELLS (BEAKER) (test 0 /100 WBC 0-0 ugjo=210) COMPREHENSIVE METABOLIC [id number] 15:06:00 Test Item Value Reference Range Comments TOTAL PROTEIN (BEAKER) 6.5 gm/dL 6.0-8.3 (test ahdk=447) ALBUMIN (BEAKER) (test 3.7 g/dL 3.5-5.0 jvgs=6097) ALKALINE PHOSPHATASE 135 U/L 40-150 (BEAKER) (test ufid=667) BILIRUBIN TOTAL (BEAKER) 4.5 mg/dL 0.2-1.2 (test amvv=852) SODIUM (BEAKER) (test 131 meq/L 136-145 iidn=953) POTASSIUM (BEAKER) (test 5.8 meq/L 3.5-5.1 fbku=807) CHLORIDE (BEAKER) (test 103 meq/L 98-107 ybie=511) CO2 (BEAKER) (test 24 meq/L 22-29 ukne=932) BLOOD UREA NITROGEN 27 mg/dL 7-21 (BEAKER) (test yvbq=535) CREATININE (BEAKER) (test 1.17 mg/dL 0.57-1.25 xouw=866) GLUCOSE RANDOM (BEAKER) 111 mg/dL 70-105 (test qxid=686) CALCIUM (BEAKER) (test 11.0 mg/dL 8.4-10.2 tlsp=826) AST (SGOT) (BEAKER) (test 28 U/L 5-34 atqp=953) ALT (SGPT) (BEAKER) (test 19 U/L 6-55 tmkk=521) EGFR (BEAKER) (test 65 mL/min/1.73 sq m ESTIMATED GFR IS NOT wdnl=7538) ACCURATE CREATININE CLEARANCE IN PREDICTING GLOMERULAR FILTRATION RATE. ESTIMATED GFR IS NOT APPLICABLE FOR DIALYSIS PATIENTS. Specimen slightly ictericBILIRUBIN, [id number] 15:06:00 Test Item Value Reference Range Comments BILIRUBIN DIRECT (BEAKER) (test lceb=680) 3.0 mg/dL 0.1-0.5 PROTHROMBIN [id number] 14:42:00 Test Item Value Reference Range Comments PROTIME (BEAKER) (test lqwl=616) 19.1 seconds 11.7-14.7 INR (BEAKER) (test ffut=540) 1.6 <=5.9 RECOMMENDED COUMADIN/WARFARIN INR THERAPY RANGESSTANDARD DOSE: 2.0 - 3.0 Includes: PROPHYLAXIS forvenous thrombosis, systemic embolization; TREATMENT for venous thrombosis and/or pulmonary embolus.HIGH RISK: Target INR is 2.5-3.5 for patients with mechanical heart valves.CBC W/PLT COUNT & AUTO [id number] 14:36:00 Test Item Value Reference Range Comments WHITE BLOOD CELL COUNT (BEAKER) (test mliu=996) 5.5 K/ L 3.5-10.5 RED BLOOD CELL COUNT (BEAKER) (test uuej=953) 2.84 M/ L 4.63-6.08 HEMOGLOBIN (BEAKER) (test exwo=854) 9.5 GM/DL 13.7-17.5 HEMATOCRIT (BEAKER) (test dvfv=732) 28.8 % 40.1-51.0 MEAN CORPUSCULAR VOLUME (BEAKER) (test dsnc=337) 101.4 fL 79.0-92.2 MEAN CORPUSCULAR HEMOGLOBIN (BEAKER) (test 33.5 pg 25.7-32.2 btwt=369) MEAN CORPUSCULAR HEMOGLOBIN CONC (BEAKER) (test 33.0 GM/DL 32.3-36.5 qiez=664) RED CELL DISTRIBUTION WIDTH (BEAKER) (test 19.4 % 11.6-14.4 osuy=661) PLATELET COUNT (BEAKER) (test uhbx=425) 65 K/CU MM 150-450 MEAN PLATELET VOLUME (BEAKER) (test xwry=367) 8.8 fL 9.4-12.4 NUCLEATED RED BLOOD CELLS (BEAKER) (test 0 /100 WBC 0-0 yutv=519) NEUTROPHILS RELATIVE PERCENT (BEAKER) (test 66 % koym=184) LYMPHOCYTES RELATIVE PERCENT (BEAKER) (test 14 % zqco=952) MONOCYTES RELATIVE PERCENT (BEAKER) (test 15 % jeop=686) EOSINOPHILS RELATIVE PERCENT (BEAKER) (test 4 % mbzg=311) BASOPHILS RELATIVE PERCENT (BEAKER) (test 0 % bdly=598) NEUTROPHILS ABSOLUTE COUNT (BEAKER) (test 3.58 K/ L 1.78-5.38 hejw=532) LYMPHOCYTES ABSOLUTE COUNT (BEAKER) (test 0.78 K/ L 1.32-3.57 eayf=199) MONOCYTES ABSOLUTE COUNT (BEAKER) (test qwno=341) 0.79 K/ L 0.30-0.82 EOSINOPHILS ABSOLUTE COUNT (BEAKER) (test 0.23 K/ L 0.04-0.54 dkfs=880) BASOPHILS ABSOLUTE COUNT (BEAKER) (test qocx=464) 0.02 K/ L 0.01-0.08 IMMATURE GRANULOCYTES-RELATIVE PERCENT (BEAKER) 1 % 0-1 (test cbul=6681) RAD, KNEE, COMPLETE (4 VIEWS), [id number] 11:15:00Reason for exam:->FALL , PAINFINAL REPORT Bilateral [...] MDReport Verified Date/Time: 01/06/2018 11:15:08 Reading Location: [facility] Radiology Reading Room RAD, KNEE, COMPLETE (4 VIEWS), [id number] 11:15:00Reason for exam:->FALL, PAINFINAL REPORT Bilateral knee [...] MDReport Verified Date/Time: 01/06/2018 11:15:08 Reading Location: [facility] Radiology Reading Room CBC W/PLT COUNT & AUTO [id number] 10: 58:00 Test Item Value Reference Range Comments WHITE BLOOD CELL COUNT (BEAKER) (test jdkj=989) 2.9 K/ L 3.5-10.5 RED BLOOD CELL COUNT (BEAKER) (test rern=928) 2.27 M/ L 4.63-6.08 HEMOGLOBIN (BEAKER) (test hgpe=198) 7.1 GM/DL 13.7-17.5 HEMATOCRIT (BEAKER) (test jagx=306) 21.0 % 40.1-51.0 MEAN CORPUSCULAR VOLUME (BEAKER) (test salm=492) 92.5 fL 79.0-92.2 MEAN CORPUSCULAR HEMOGLOBIN (BEAKER) (test 31.3 pg 25.7-32.2 gptv=821) MEAN CORPUSCULAR HEMOGLOBIN CONC (BEAKER) (test 33.8 GM/DL 32.3-36.5 povy=849) RED CELL DISTRIBUTION WIDTH (BEAKER) (test 17.2 % 11.6-14.4 gfkc=099) PLATELET COUNT (BEAKER) (test fana=806) 42 K/CU MM 150-450 MEAN PLATELET VOLUME (BEAKER) (test wrfm=771) 10.1 fL 9.4-12.4 NUCLEATED RED BLOOD CELLS (BEAKER) (test 0 /100 WBC 0-0 ajib=387) NEUTROPHILS RELATIVE PERCENT (BEAKER) (test 77 % qcnx=168) LYMPHOCYTES RELATIVE PERCENT (BEAKER) (test 12 % mgtf=001) MONOCYTES RELATIVE PERCENT (BEAKER) (test 10 % siyu=128) EOSINOPHILS RELATIVE PERCENT (BEAKER) (test 1 % aodc=530) BASOPHILS RELATIVE PERCENT (BEAKER) (test 0 % nvtf=420) NEUTROPHILS ABSOLUTE COUNT (BEAKER) (test 2.21 K/ L 1.78-5.38 nesf=415) LYMPHOCYTES ABSOLUTE COUNT (BEAKER) (test 0.33 K/ L 1.32-3.57 xngo=284) MONOCYTES ABSOLUTE COUNT (BEAKER) (test iwbn=895) 0.30 K/ L 0.30-0.82 EOSINOPHILS ABSOLUTE COUNT (BEAKER) (test 0.03 K/ L 0.04-0.54 ypgh=251) BASOPHILS ABSOLUTE COUNT (BEAKER) (test gvcy=818) 0.00 K/ L 0.01-0.08 IMMATURE GRANULOCYTES-RELATIVE PERCENT (BEAKER) 0 % 0-1 (test wlad=0926) [id number] 06:06:00 Test Item Value Reference Range Comments PHOSPHORUS (BEAKER) (test orrd=696) 3.6 mg/dL 2.3-4.7 [id number] 06:06:00 Test Item Value Reference Range Comments MAGNESIUM (BEAKER) (test bmiz=732) 2.0 mg/dL 1.6-2.6 BASIC METABOLIC [id number] 06:06:00 Test Item Value Reference Range Comments SODIUM (BEAKER) (test 130 meq/L 136-145 dpxe=403) POTASSIUM (BEAKER) (test 4.4 meq/L 3.5-5.1 jdks=436) CHLORIDE (BEAKER) (test 100 meq/L 98-107 zbpg=804) CO2 (BEAKER) (test 23 meq/L 22-29 umar=938) BLOOD UREA NITROGEN 21 mg/dL 7-21 (BEAKER) (test mceh=988) CREATININE (BEAKER) (test 1.11 mg/dL 0.57-1.25 zdhq=228) GLUCOSE RANDOM (BEAKER) 120 mg/dL 70-105 (test hdcf=224) CALCIUM (BEAKER) (test 9.4 mg/dL 8.4-10.2 dsvj=266) EGFR (BEAKER) (test 70 mL/min/1.73 sq m ESTIMATED GFR IS NOT lbbi=4777) ACCURATE CREATININE CLEARANCE IN PREDICTING GLOMERULAR FILTRATION RATE. ESTIMATED GFR IS NOT APPLICABLE FOR DIALYSIS PATIENTS. Specimen slightly ictericPROTHROMBIN TIME/[id number] 06:02:00 Test Item Value Reference Range Comments PROTIME (BEAKER) (test ospb=155) 22.9 seconds 11.7-14.7 INR (BEAKER) (test ggdg=058) 2.0 <=5.9 RECOMMENDED COUMADIN/WARFARIN INR THERAPY RANGESSTANDARD DOSE: 2.0 - 3.0 Includes: PROPHYLAXIS forvenous thrombosis, systemic embolization; TREATMENT for venous thrombosis and/or pulmonary embolus.HIGH RISK: Target INR is 2.5-3.5 for patients with mechanical heart valves.CALCIUM, [id number] 06:01:00 Test Item Value Reference Range Comments CALCIUM IONIZED (BEAKER) (test dsmv=478) 1.11 mmol/L 1.12-1.27 PH, BLOOD (BEAKER) (test lzzx=4408) 7.53 CORTISOL,60 [id number] 23:20:00 Test Item Value Reference Range Comments CORTISOL BASELINE NETWORKED (BEAKER) (test 4.8 mcg/dL qmys=7092) CORTISOL 30 MINUTE NETWORKED (BEAKER) (test 9.2 mcg/dL juqg=6720) CORTISOL, 60 MINUTE (BEAKER) (test cbrz=5423) 12.6 ug/dL ACTH STIMULATION TEST INTERPRETATION GUIDELINES(Synonyms: [...] study by Mindy et al (NEVAEH 2000,283( 8):1973-34), the ACTH Stimulation Test provides important prognostic [...] serum cortisollevel 60 minutes after cosyntropin administration.CORTISOL,30 [id number] 22:35:00 Test Item Value Reference Range Comments CORTISOL BASELINE NETWORKED (BEAKER) (test 4.8 mcg/dL hodu=5132) CORTISOL, 30 MINUTE (BEAKER) (test ryrk=2485) 9.2 ug/dL ACTH STIMULATION TEST INTERPRETATION GUIDELINES(Synonyms: [...] Draw serum cortisollevel 60 minutes after cosyntropin administration.CORTISOL,[id number] 22:35:00 Test Item Value Reference Range Comments CORTISOL, BASELINE (BEAKER) (test iopc=1919) 4.8 ug/dL ACTH STIMULATION TEST INTERPRETATION GUIDELINES(Synonyms: [...] serum cortisollevel 60 minutes after cosyntropin administration.U/S, [id number] 17:54:00Reason for exam:->therapeuticFINAL REPORT History: Ascites. PROCEDURE: Following informed written consent,the patient's right lower quadrant was prepped and draped in the usual sterile manner. 2% lidocaine was given locally for anesthesia. No conscious sedation was administered. Using ultrasound guidance, a 5 [place] one-step catheter was advanced percutaneously into the [...] Verified Date/Time: 01/05/2018 17: 54:16 Reading Location: [address] Ultrasound Reading Room [id number] 11:19:00 Test Item Value Reference Range Comments CORTISOL, TOTAL (BEAKER) (test ppfs=2199) 2.7 ug/dL 3.7-19.4 [id number] 10:21:00 Test Item Value Reference Range Comments PHOSPHORUS (BEAKER) (test ouhq=730) 2.8 mg/dL 2.3-4.7 [id number] 10:21:00 Test Item Value Reference Range Comments MAGNESIUM (BEAKER) (test jdbb=510) 1.9 mg/dL 1.6-2.6 BASIC METABOLIC [id number] 10:21:00 Test Item Value Reference Range Comments SODIUM (BEAKER) (test 127 meq/L 136-145 vwnw=853) POTASSIUM (BEAKER) (test 5.0 meq/L 3.5-5.1 esnb=507) CHLORIDE (BEAKER) (test 100 meq/L 98-107 hyec=722) CO2 (BEAKER) (test 22 meq/L 22-29 fnob=119) BLOOD UREA NITROGEN 25 mg/dL 7-21 (BEAKER) (test fwne=096) CREATININE (BEAKER) (test 1.17 mg/dL 0.57-1.25 pcfa=219) GLUCOSE RANDOM (BEAKER) 84 mg/dL 70-105 (test udap=543) CALCIUM (BEAKER) (test 8.7 mg/dL 8.4-10.2 jmgm=786) EGFR (BEAKER) (test 65 mL/min/1.73 sq m ESTIMATED GFR IS NOT uggx=3148) ACCURATE CREATININE CLEARANCE IN PREDICTING GLOMERULAR FILTRATION RATE. ESTIMATED GFR IS NOT APPLICABLE FOR DIALYSIS PATIENTS. Specimen slightly ictericCBC W/PLT COUNT & AUTO [id number] 08:42 :00 Test Item Value Reference Range Comments WHITE BLOOD CELL COUNT (BEAKER) (test nblr=968) 2.7 K/ L 3.5-10.5 RED BLOOD CELL COUNT (BEAKER) (test hskk=517) 2.33 M/ L 4.63-6.08 HEMOGLOBIN (BEAKER) (test cpmm=690) 7.3 GM/DL 13.7-17.5 HEMATOCRIT (BEAKER) (test vrin=844) 22.0 % 40.1-51.0 MEAN CORPUSCULAR VOLUME (BEAKER) (test nxsq=251) 94.4 fL 79.0-92.2 MEAN CORPUSCULAR HEMOGLOBIN (BEAKER) (test 31.3 pg 25.7-32.2 knkc=721) MEAN CORPUSCULAR HEMOGLOBIN CONC (BEAKER) (test 33.2 GM/DL 32.3-36.5 gdie=346) RED CELL DISTRIBUTION WIDTH (BEAKER) (test 17.2 % 11.6-14.4 nrxs=543) PLATELET COUNT (BEAKER) (test owui=349) 45 K/CU MM 150-450 MEAN PLATELET VOLUME (BEAKER) (test bpfc=928) 9.3 fL 9.4-12.4 NUCLEATED RED BLOOD CELLS (BEAKER) (test 0 /100 WBC 0-0 bqke=832) NEUTROPHILS RELATIVE PERCENT (BEAKER) (test 60 % rltb=735) LYMPHOCYTES RELATIVE PERCENT (BEAKER) (test 17 % yybp=990) MONOCYTES RELATIVE PERCENT (BEAKER) (test 16 % zdto=613) EOSINOPHILS RELATIVE PERCENT (BEAKER) (test 6 % nbyq=021) BASOPHILS RELATIVE PERCENT (BEAKER) (test 0 % teyd=404) NEUTROPHILS ABSOLUTE COUNT (BEAKER) (test 1.63 K/ L 1.78-5.38 fpfn=529) LYMPHOCYTES ABSOLUTE COUNT (BEAKER) (test 0.45 K/ L 1.32-3.57 wutu=846) MONOCYTES ABSOLUTE COUNT (BEAKER) (test bfmb=984) 0.44 K/ L 0.30-0.82 EOSINOPHILS ABSOLUTE COUNT (BEAKER) (test 0.16 K/ L 0.04-0.54 rwen=164) BASOPHILS ABSOLUTE COUNT (BEAKER) (test rlmi=244) 0.01 K/ L 0.01-0.08 IMMATURE GRANULOCYTES-RELATIVE PERCENT (BEAKER) 1 % 0-1 (test hori=0249) (MANUAL DIFFERENTIAL)2018-01-05 08:42:00 Test Item Value Reference Range Comments TOTAL COUNTED (BEAKER) (test nqjk=4486) WBC MORPHOLOGY (BEAKER) (test mezx=864) Normal PLT MORPHOLOGY (BEAKER) (test orbt=516) Normal ANISOCYTOSIS (BEAKER) (test qjpa=239) 1+ few CALCIUM, [id number] 08:10:00 Test Item Value Reference Range Comments CALCIUM IONIZED (BEAKER) (test ldsh=060) 1.08 mmol/L 1.12-1.27 PH, BLOOD (BEAKER) (test idmw=7987) 7.44 PROTHROMBIN [id number] 07:12:00 Test Item Value Reference Range Comments PROTIME (BEAKER) (test tkks=893) 22.4 seconds 11.7-14.7 INR (BEAKER) (test ifxf=810) 2.0 <=5.9 RECOMMENDED COUMADIN/WARFARIN INR THERAPY RANGESSTANDARD DOSE: 2.0 - 3.0 Includes: PROPHYLAXIS forvenous thrombosis, systemic embolization; TREATMENT for venous thrombosis and/or pulmonary embolus.HIGH RISK: Target INR is 2.5-3.5 for patients with mechanical heart valves.[id number] 17:54:00 Test Item Value Reference Range Comments SODIUM (BEAKER) (test juee=497) 129 meq/L 136-145 POTASSIUM (BEAKER) (test qkge=427) 5.5 meq/L 3.5-5.1 CHLORIDE (BEAKER) (test fatr=157) 101 meq/L 98-107 CO2 (BEAKER) (test tges=677) 26 meq/L 22-29 Call [id number] with resultsCBC (HEMOGRAM ONLY)2018-01-04 07:16:00 Test Item Value Reference Range Comments WHITE BLOOD CELL COUNT (BEAKER) (test qeon=979) 2.9 K/ L 3.5-10.5 RED BLOOD CELL COUNT (BEAKER) (test lqek=808) 2.25 M/ L 4.63-6.08 HEMOGLOBIN (BEAKER) (test ldak=148) 7.3 GM/DL 13.7-17.5 HEMATOCRIT (BEAKER) (test jydm=879) 21.3 % 40.1-51.0 MEAN CORPUSCULAR VOLUME (BEAKER) (test mrwu=850) 94.7 fL 79.0-92.2 MEAN CORPUSCULAR HEMOGLOBIN (BEAKER) (test 32.4 pg 25.7-32.2 bsyg=142) MEAN CORPUSCULAR HEMOGLOBIN CONC (BEAKER) (test 34.3 GM/DL 32.3-36.5 akiu=349) RED CELL DISTRIBUTION WIDTH (BEAKER) (test 17.6 % 11.6-14.4 ircb=269) PLATELET COUNT (BEAKER) (test pytg=347) 59 K/CU MM 150-450 MEAN PLATELET VOLUME (BEAKER) (test tcws=009) 11.3 fL 9.4-12.4 NUCLEATED RED BLOOD CELLS (BEAKER) (test 0 /100 WBC 0-0 gpmr=067) COMPREHENSIVE METABOLIC [id number] 06:49:00 Test Item Value Reference Range Comments TOTAL PROTEIN (BEAKER) 5.3 gm/dL 6.0-8.3 Specimen slightly (test nuke=791) hemolyzed ALBUMIN (BEAKER) (test 3.3 g/dL 3.5-5.0 Specimen slightly mjsr=6407) hemolyzed ALKALINE PHOSPHATASE 81 U/L 40-150 (BEAKER) (test chwu=279) BILIRUBIN TOTAL (BEAKER) 2.4 mg/dL 0.2-1.2 Specimen slightly (test roim=996) hemolyzed SODIUM (BEAKER) (test 127 meq/L 136-145 rlon=991) POTASSIUM (BEAKER) (test 5.7 meq/L 3.5-5.1 Specimen slightly ijiy=122) hemolyzed CHLORIDE (BEAKER) (test 100 meq/L 98-107 wxiz=728) CO2 (BEAKER) (test 20 meq/L 22-29 lxjg=568) BLOOD UREA NITROGEN 22 mg/dL 7-21 (BEAKER) (test ccmh=394) CREATININE (BEAKER) (test 1.14 mg/dL 0.57-1.25 Specimen slightly tkom=132) hemolyzed GLUCOSE RANDOM (BEAKER) 96 mg/dL 70-105 (test fqfu=203) CALCIUM (BEAKER) (test 8.9 mg/dL 8.4-10.2 qnqq=496) AST (SGOT) (BEAKER) (test 30 U/L 5-34 Specimen slightly vtqo=679) hemolyzed ALT (SGPT) (BEAKER) (test 8 U/L 6-55 Specimen slightly gekr=786) hemolyzed EGFR (BEAKER) (test 67 mL/min/1.73 sq m ESTIMATED GFR IS NOT fxqf=4251) ACCURATE CREATININE CLEARANCE IN PREDICTING GLOMERULAR FILTRATION RATE. ESTIMATED GFR IS NOT APPLICABLE FOR DIALYSIS PATIENTS. Specimen slightly ictericPROTHROMBIN [id number] 06:15:00 Test Item Value Reference Range Comments PROTIME (BEAKER) (test edtt=460) 22.7 seconds 11.7-14.7 INR (BEAKER) (test plyf=440) 2.0 <=5.9 RECOMMENDED COUMADIN/WARFARIN INR THERAPY RANGESSTANDARD DOSE: 2.0 - 3.0 Includes: PROPHYLAXIS forvenous thrombosis, systemic embolization; TREATMENT for venous thrombosis and/or pulmonary embolus.HIGH RISK: Target INR is 2.5-3.5 for patients with mechanical heart valves.VITAMIN B12 AND [id number] 16:39 :00 Test Item Value Reference Range Comments VITAMIN B12 (BEAKER) (test cupj=506) 829 pg/mL 213-816 FOLATE (BEAKER) (test zwrd=739) 18.9 ng/mL >=7.0 CALCIUM, [id number] 07:14:00 Test Item Value Reference Range Comments CALCIUM IONIZED (BEAKER) (test hpvj=714) 1.08 mmol/L 1.12-1.27 PH, BLOOD (BEAKER) (test xtcx=7815) 7.41 COMPREHENSIVE METABOLIC [id number] 07:00:00 Test Item Value Reference Range Comments TOTAL PROTEIN (BEAKER) 5.0 gm/dL 6.0-8.3 (test lodn=186) ALBUMIN (BEAKER) (test 3.1 g/dL 3.5-5.0 rppk=2678) ALKALINE PHOSPHATASE 65 U/L 40-150 (BEAKER) (test mdkd=186) BILIRUBIN TOTAL (BEAKER) 2.5 mg/dL 0.2-1.2 (test sgvb=728) SODIUM (BEAKER) (test 127 meq/L 136-145 ppaz=968) POTASSIUM (BEAKER) (test 4.7 meq/L 3.5-5.1 ujia=121) CHLORIDE (BEAKER) (test 99 meq/L 98-107 bdqr=605) CO2 (BEAKER) (test 23 meq/L 22-29 lbwe=124) BLOOD UREA NITROGEN 21 mg/dL 7-21 (BEAKER) (test moqi=171) CREATININE (BEAKER) (test 1.13 mg/dL 0.57-1.25 cytw=077) GLUCOSE RANDOM (BEAKER) 92 mg/dL 70-105 (test wsol=909) CALCIUM (BEAKER) (test 8.9 mg/dL 8.4-10.2 alnz=149) AST (SGOT) (BEAKER) (test 18 U/L 5-34 jlrm=571) ALT (SGPT) (BEAKER) (test 8 U/L 6-55 eckt=726) EGFR (BEAKER) (test 68 mL/min/1.73 sq m ESTIMATED GFR IS NOT fftn=6705) ACCURATE CREATININE CLEARANCE IN PREDICTING GLOMERULAR FILTRATION RATE. ESTIMATED GFR IS NOT APPLICABLE FOR DIALYSIS PATIENTS. [id number] 06:37:00 Test Item Value Reference Range Comments PHOSPHORUS (BEAKER) (test auos=258) 3.2 mg/dL 2.3-4.7 [id number] 06:37:00 Test Item Value Reference Range Comments MAGNESIUM (BEAKER) (test aixx=275) 1.9 mg/dL 1.6-2.6 CBC (HEMOGRAM ONLY)2018-01-03 06:25:00 Test Item Value Reference Range Comments WHITE BLOOD CELL COUNT (BEAKER) (test bgxa=229) 3.1 K/ L 3.5-10.5 RED BLOOD CELL COUNT (BEAKER) (test sygr=594) 2.31 M/ L 4.63-6.08 HEMOGLOBIN (BEAKER) (test gfey=290) 7.4 GM/DL 13.7-17.5 HEMATOCRIT (BEAKER) (test dcfx=421) 21.6 % 40.1-51.0 MEAN CORPUSCULAR VOLUME (BEAKER) (test mmjy=620) 93.5 fL 79.0-92.2 MEAN CORPUSCULAR HEMOGLOBIN (BEAKER) (test 32.0 pg 25.7-32.2 jmye=698) MEAN CORPUSCULAR HEMOGLOBIN CONC (BEAKER) (test 34.3 GM/DL 32.3-36.5 drso=499) RED CELL DISTRIBUTION WIDTH (BEAKER) (test 17.4 % 11.6-14.4 iqru=068) PLATELET COUNT (BEAKER) (test rmoz=759) 50 K/CU MM 150-450 MEAN PLATELET VOLUME (BEAKER) (test syst=795) 10.5 fL 9.4-12.4 NUCLEATED RED BLOOD CELLS (BEAKER) (test 0 /100 WBC 0-0 mrab=345) PROTHROMBIN [id number] 06:09:00 Test Item Value Reference Range Comments PROTIME (BEAKER) (test ccoc=343) 22.2 seconds 11.7-14.7 INR (BEAKER) (test qkqu=235) 2.0 <=5.9 RECOMMENDED COUMADIN/WARFARIN INR THERAPY RANGESSTANDARD DOSE: 2.0 - 3.0 Includes: PROPHYLAXIS forvenous thrombosis, systemic embolization; TREATMENT for venous thrombosis and/or pulmonary embolus.HIGH RISK: Target INR is 2.5-3.5 for patients with mechanical heart valves.[id number] 07:54:00 Test Item Value Reference Range Comments PHOSPHORUS (BEAKER) (test lfdo=732) 3.2 mg/dL 2.3-4.7 [id number] 07:54:00 Test Item Value Reference Range Comments MAGNESIUM (BEAKER) (test wpok=863) 1.4 mg/dL 1.6-2.6 COMPREHENSIVE METABOLIC [id number] 07:54:00 Test Item Value Reference Range Comments TOTAL PROTEIN (BEAKER) 5.3 gm/dL 6.0-8.3 (test nqyo=032) ALBUMIN (BEAKER) (test 3.4 g/dL 3.5-5.0 eeiv=4092) ALKALINE PHOSPHATASE 55 U/L 40-150 (BEAKER) (test szqo=482) BILIRUBIN TOTAL (BEAKER) 3.9 mg/dL 0.2-1.2 (test wswd=704) SODIUM (BEAKER) (test 131 meq/L 136-145 iwqo=872) POTASSIUM (BEAKER) (test 4.3 meq/L 3.5-5.1 nivu=851) CHLORIDE (BEAKER) (test 101 meq/L 98-107 sdoe=692) CO2 (BEAKER) (test 23 meq/L 22-29 tdam=860) BLOOD UREA NITROGEN 19 mg/dL 7-21 (BEAKER) (test kvtv=553) CREATININE (BEAKER) (test 0.97 mg/dL 0.57-1.25 jcnw=357) GLUCOSE RANDOM (BEAKER) 80 mg/dL 70-105 (test oymb=356) CALCIUM (BEAKER) (test 9.4 mg/dL 8.4-10.2 uadu=921) AST (SGOT) (BEAKER) (test 17 U/L 5-34 yvap=626) ALT (SGPT) (BEAKER) (test 8 U/L 6-55 bwfk=695) EGFR (BEAKER) (test 81 mL/min/1.73 sq m ESTIMATED GFR IS NOT bqmq=2116) ACCURATE CREATININE CLEARANCE IN PREDICTING GLOMERULAR FILTRATION RATE. ESTIMATED GFR IS NOT APPLICABLE FOR DIALYSIS PATIENTS. Specimen slightly ictericCBC W/PLT COUNT & AUTO [id number] 07:14 :00 Test Item Value Reference Range Comments WHITE BLOOD CELL COUNT (BEAKER) (test atjx=584) 2.9 K/ L 3.5-10.5 RED BLOOD CELL COUNT (BEAKER) (test yhfg=767) 2.55 M/ L 4.63-6.08 HEMOGLOBIN (BEAKER) (test yxty=462) 8.1 GM/DL 13.7-17.5 HEMATOCRIT (BEAKER) (test zpaq=480) 23.7 % 40.1-51.0 MEAN CORPUSCULAR VOLUME (BEAKER) (test uuwc=751) 92.9 fL 79.0-92.2 MEAN CORPUSCULAR HEMOGLOBIN (BEAKER) (test 31.8 pg 25.7-32.2 cjjf=880) MEAN CORPUSCULAR HEMOGLOBIN CONC (BEAKER) (test 34.2 GM/DL 32.3-36.5 lkqd=140) RED CELL DISTRIBUTION WIDTH (BEAKER) (test 17.5 % 11.6-14.4 wqqc=809) PLATELET COUNT (BEAKER) (test dluy=230) 50 K/CU MM 150-450 MEAN PLATELET VOLUME (BEAKER) (test rxhn=001) 9.5 fL 9.4-12.4 NUCLEATED RED BLOOD CELLS (BEAKER) (test 0 /100 WBC 0-0 lkue=355) NEUTROPHILS RELATIVE PERCENT (BEAKER) (test 57 % cilr=588) LYMPHOCYTES RELATIVE PERCENT (BEAKER) (test 17 % racf=253) MONOCYTES RELATIVE PERCENT (BEAKER) (test 18 % bqzj=769) EOSINOPHILS RELATIVE PERCENT (BEAKER) (test 7 % qnky=168) BASOPHILS RELATIVE PERCENT (BEAKER) (test 0 % wphw=187) NEUTROPHILS ABSOLUTE COUNT (BEAKER) (test 1.65 K/ L 1.78-5.38 qdlq=925) LYMPHOCYTES ABSOLUTE COUNT (BEAKER) (test 0.49 K/ L 1.32-3.57 naof=727) MONOCYTES ABSOLUTE COUNT (BEAKER) (test gayt=678) 0.51 K/ L 0.30-0.82 EOSINOPHILS ABSOLUTE COUNT (BEAKER) (test 0.20 K/ L 0.04-0.54 uxia=110) BASOPHILS ABSOLUTE COUNT (BEAKER) (test pbkg=419) 0.01 K/ L 0.01-0.08 IMMATURE GRANULOCYTES-RELATIVE PERCENT (BEAKER) 1 % 0-1 (test hflr=2811) (MANUAL DIFFERENTIAL)2018-01-02 07:14:00 Test Item Value Reference Range Comments TOTAL COUNTED (BEAKER) (test juew=3586) CALCIUM, [id number] 07:04:00 Test Item Value Reference Range Comments CALCIUM IONIZED (BEAKER) (test xpqo=200) 1.07 mmol/L 1.12-1.27 PH, BLOOD (BEAKER) (test lski=6329) 7.49 PROTHROMBIN [id number] 06:42:00 Test Item Value Reference Range Comments PROTIME (BEAKER) (test yztb=372) 24.6 seconds 11.7-14.7 INR (BEAKER) (test yudj=107) 2.2 <=5.9 RECOMMENDED COUMADIN/WARFARIN INR THERAPY RANGESSTANDARD DOSE: 2.0 - 3.0 Includes: PROPHYLAXIS forvenous thrombosis, systemic embolization; TREATMENT for venous thrombosis and/or pulmonary embolus.HIGH RISK: Target INR is 2.5-3.5 for patients with mechanical heart valves.CYTOMEGALOVIRUS ANTIBODY, [id number] 14:58:00 Test Item Value Reference Range Comments CYTOMEGALOVIRUS IGG ANTIBODY (BEAKER) (test Positive ecwx=643) CYTOMEGALOVIRUS ANTIBODY, [id number] 14:58:00 Test Item Value Reference Range Comments CYTOMEGALOVIRUS IGM ANTIBODY (BEAKER) (test Negative rfhj=470) EBV-VCA ANTIBODY, [id number] 14:58:00 Test Item Value Reference Range Comments MARCELLUS-DAVIS VCA IGG (BEAKER) (test efvu=016) Positive EBV-VCA ANTIBODY, [id number] 14:58:00 Test Item Value Reference Range Comments MARCELLUS-DAVIS VCA IGM (BEAKER) (test sjfg=222) Negative BODY FLUID CELL COUNT WITH [id number] 14:27:00 Test Item Value Reference Range Comments APPEARANCE FLUID (BEAKER) (test fgry=424) Slightly Hazy Clear COLOR FLUID (BEAKER) (test vuyn=492) Yellow Colorless, Straw RBC FLUID (BEAKER) (test gzch=926) 378 /cu mm <=1 ADJUSTED WBC FLUID (BEAKER) (test ihzv=1674) 84 /cu mm <=5 LINING CELLS (BEAKER) (test hbgh=3872) 17 /cu mm <=1 NEUTROPHILS FLUID (BEAKER) (test moen=7220) 1 % LYMPHS FLUID (BEAKER) (test eacc=710) 14 % MONO/MACROPHAGE FLUID (BEAKER) (test 85 % hsjg=839) EOSINOPHILS FLUID (BEAKER) (test dxnn=344) 0 % BASO FLUID (BEAKER) (test rakv=762) 0 % CONTAINER BODY FLUID (BEAKER) (test EDTA Tube lxnq=2110) U/S, [id number] 11:17:00Reason for exam:->ascitesFINAL REPORT Ultrasound guided paracentesis, 01/01/2018. Clinical History:Ascites. Sedation: None. Housekeeping Coordinator: Paul Butler MD Rn Surgical Pcu: None. Estimated Blood Loss: < 1 cc. [...] was achieved with 1% lidocaine, a 5 [place] one-step catheter was advanced into the peritoneal cavity under ultrasound guidance. After completion of drainage, the catheter was removed. There was no evidence ofcomplication. Patient Disposition: The patient was transferred to the inpatient unit from the ultrasound department after the paracentesis, in good condition. Impression:Successful ultrasound guided paracentesis. Signed: Paul Butler MDReport Verified Date/Time: 01/01/2018 11:17:26 Reading Location: [address] Ultrasound Reading Room CBC W/PLT COUNT & AUTO [id number] 08:55:00 Test Item Value Reference Range Comments WHITE BLOOD CELL COUNT (BEAKER) (test kvjn=353) 2.6 K/ L 3.5-10.5 RED BLOOD CELL COUNT (BEAKER) (test lrxu=383) 2.17 M/ L 4.63-6.08 HEMOGLOBIN (BEAKER) (test axkq=000) 6.9 GM/DL 13.7-17.5 HEMATOCRIT (BEAKER) (test gpov=650) 20.6 % 40.1-51.0 MEAN CORPUSCULAR VOLUME (BEAKER) (test sidz=885) 94.9 fL 79.0-92.2 MEAN CORPUSCULAR HEMOGLOBIN (BEAKER) (test 31.8 pg 25.7-32.2 vqoy=689) MEAN CORPUSCULAR HEMOGLOBIN CONC (BEAKER) (test 33.5 GM/DL 32.3-36.5 yimh=441) RED CELL DISTRIBUTION WIDTH (BEAKER) (test 17.0 % 11.6-14.4 ynxy=434) PLATELET COUNT (BEAKER) (test cckh=133) 43 K/CU MM 150-450 MEAN PLATELET VOLUME (BEAKER) (test zilx=333) 9.3 fL 9.4-12.4 NUCLEATED RED BLOOD CELLS (BEAKER) (test 0 /100 WBC 0-0 orif=901) NEUTROPHILS RELATIVE PERCENT (BEAKER) (test 62 % yude=319) LYMPHOCYTES RELATIVE PERCENT (BEAKER) (test 13 % nffe=048) MONOCYTES RELATIVE PERCENT (BEAKER) (test 18 % effz=567) EOSINOPHILS RELATIVE PERCENT (BEAKER) (test 6 % shuf=361) BASOPHILS RELATIVE PERCENT (BEAKER) (test 0 % hxsp=990) NEUTROPHILS ABSOLUTE COUNT (BEAKER) (test 1.58 K/ L 1.78-5.38 voql=886) LYMPHOCYTES ABSOLUTE COUNT (BEAKER) (test 0.33 K/ L 1.32-3.57 jgbh=092) MONOCYTES ABSOLUTE COUNT (BEAKER) (test asjr=026) 0.46 K/ L 0.30-0.82 EOSINOPHILS ABSOLUTE COUNT (BEAKER) (test 0.15 K/ L 0.04-0.54 gdci=139) BASOPHILS ABSOLUTE COUNT (BEAKER) (test szgy=659) 0.01 K/ L 0.01-0.08 IMMATURE GRANULOCYTES-RELATIVE PERCENT (BEAKER) 1 % 0-1 (test jlig=0193) (MANUAL DIFFERENTIAL)2018-01-01 08:55:00 Test Item Value Reference Range Comments TOTAL COUNTED (BEAKER) (test kqwy=2303) CALCIUM, [id number] 07:43:00 Test Item Value Reference Range Comments CALCIUM IONIZED (BEAKER) (test zkyn=084) 1.14 mmol/L 1.12-1.27 PH, BLOOD (BEAKER) (test bszh=2452) 7.52 [id number] 06:11:00 Test Item Value Reference Range Comments PHOSPHORUS (BEAKER) (test yuyv=639) 2.5 mg/dL 2.3-4.7 [id number] 06:11:00 Test Item Value Reference Range Comments MAGNESIUM (BEAKER) (test bunw=669) 1.7 mg/dL 1.6-2.6 COMPREHENSIVE METABOLIC [id number] 06:11:00 Test Item Value Reference Range Comments TOTAL PROTEIN (BEAKER) 5.6 gm/dL 6.0-8.3 (test igxo=111) ALBUMIN (BEAKER) (test 3.6 g/dL 3.5-5.0 acya=0134) ALKALINE PHOSPHATASE 68 U/L 40-150 (BEAKER) (test jwcv=643) BILIRUBIN TOTAL (BEAKER) 2.7 mg/dL 0.2-1.2 (test jrrp=907) SODIUM (BEAKER) (test 132 meq/L 136-145 xnog=683) POTASSIUM (BEAKER) (test 4.9 meq/L 3.5-5.1 sxma=874) CHLORIDE (BEAKER) (test 102 meq/L 98-107 ibib=568) CO2 (BEAKER) (test 24 meq/L 22-29 rrqr=960) BLOOD UREA NITROGEN 20 mg/dL 7-21 (BEAKER) (test lkxm=879) CREATININE (BEAKER) (test 1.17 mg/dL 0.57-1.25 eyng=164) GLUCOSE RANDOM (BEAKER) 92 mg/dL 70-105 (test vboz=358) CALCIUM (BEAKER) (test 9.7 mg/dL 8.4-10.2 ganq=796) AST (SGOT) (BEAKER) (test 16 U/L 5-34 hyxp=144) ALT (SGPT) (BEAKER) (test 8 U/L 6-55 aqan=498) EGFR (BEAKER) (test 65 mL/min/1.73 sq m ESTIMATED GFR IS NOT owhs=1086) ACCURATE CREATININE CLEARANCE IN PREDICTING GLOMERULAR FILTRATION RATE. ESTIMATED GFR IS NOT APPLICABLE FOR DIALYSIS PATIENTS. Specimen slightly ictericPROTHROMBIN [id number] 06:00:00 Test Item Value Reference Range Comments PROTIME (TUNG) (test bpth=266) 24.0 seconds 11.7-14.7 INR (TUNG) (test yrsg=905) 2.2 <=5.9 RECOMMENDED COUMADIN/WARFARIN INR THERAPY RANGESSTANDARD DOSE: 2.0 - 3.0 Includes: PROPHYLAXIS forvenous thrombosis, systemic embolization; TREATMENT for venous thrombosis and/or pulmonary embolus.HIGH RISK: Target INR is 2.5-3.5 for patients with mechanical heart valves.CT, CHEST, WITHOUT [id number] 19:24:00FINAL REPORT HISTORY: Lung nodule, >=1cm COMPARISON [...] MDReport Verified Date/Time: 12/31/2017 19:24:12 Reading Location: [facility] [id number] Consult Reading Room 07: 24 PMPERIPHERAL BLOOD SMEAR - HOLD [id number] 19:18:00 Test Item Value Reference Range Comments PERIPHERAL SMEAR SAVE (BEAKER) prepared and saved smear, (test gyqt=1490) 12/31/17 RETICULOCYTE [id number] 19:14:00 Test Item Value Reference Range Comments RETICULOCYTE COUNT PCT (BEAKER) (test ftrx=967) 3.5 % 0.5-1.8 LACTATE DEHYDROGENASE (LDH)2017-12-31 17:47:00 Test Item Value Reference Range Comments LACTATE DEHYDROGENASE (BEAKER) (test ayjp=822) 112 U/L 125-220 BLOOD GAS, [id number] 17:27:00 Test Item Value Reference Range Comments PH ARTERIAL (BEAKER) (test qgpu=972) 7.45 7.35-7.45 PCO2 ARTERIAL (BEAKER) (test qfzw=052) 36 mmHg 35-45 PO2 ARTERIAL (BEAKER) (test pqlv=136) 76 mmHg 80-90 O2 SATURATION ARTERIAL (BEAKER) (test teik=101) 96.1 % 96.0-97.0 HCO3 ARTERIAL (BEAKER) (test cyhj=712) 24 mmol/L 21-29 BASE EXCESS ARTERIAL (BEAKER) (test sjxf=638) 0.2 mmol/L -2.0-3.0 PATIENT TEMPERATURE (BEAKER) (test efoc=2472) 36.4 C FIO2 (BEAKER) (test kxkw=5127) 21.0 % MYOCARD IMAGING, MULTI, PHARM, [id number] 15:12:00FINAL REPORT PROCEDURE: Rest/Stress MYOCARDIAL PERFUSION SPECT with regadenoson\\XA9\\ CPT CODE: 76540 INDICATION: Liver transplant evaluation HISTORY: Cardiac risk [...] Normal extracardiac tracer distribution. 6. No previous [facility] study for comparison. NONINVASIVE RISK STRATIFICATION: The above findings are considered low risk (<1% annual mortality rate) based on the following criterion:- Normal orsmall myocardial perfusion defect at rest or with stress(JACC. 2012;59(9):857-81.) Signed: Quinten Napier Verified Date/Time: 12/31/2017 15:12:03 Reading Location: [id number] [place] Reading Room BILIRUBIN, [id number] 14:10:00 Test Item Value Reference Range Comments BILIRUBIN DIRECT (BEAKER) (test xfbo=030) 1.6 mg/dL 0.1-0.5 HEMOGLOBIN AND [id number] 13:22:00 Test Item Value Reference Range Comments HEMOGLOBIN (BEAKER) (test hhhr=418) 7.3 GM/DL 13.7-17.5 HEMATOCRIT (BEAKER) (test jwkn=635) 21.9 % 40.1-51.0 CBC W/PLT COUNT & AUTO [id number] 11:06:00 Test Item Value Reference Range Comments WHITE BLOOD CELL COUNT (BEAKER) (test xhxz=442) 2.2 K/ L 3.5-10.5 RED BLOOD CELL COUNT (BEAKER) (test ijjs=735) 2.07 M/ L 4.63-6.08 HEMOGLOBIN (BEAKER) (test jwsu=426) 6.8 GM/DL 13.7-17.5 HEMATOCRIT (BEAKER) (test wyzd=962) 19.6 % 40.1-51.0 MEAN CORPUSCULAR VOLUME (BEAKER) (test xjsb=694) 94.7 fL 79.0-92.2 MEAN CORPUSCULAR HEMOGLOBIN (BEAKER) (test 32.9 pg 25.7-32.2 jzqp=140) MEAN CORPUSCULAR HEMOGLOBIN CONC (BEAKER) (test 34.7 GM/DL 32.3-36.5 kbfx=425) RED CELL DISTRIBUTION WIDTH (BEAKER) (test 16.9 % 11.6-14.4 fqit=700) PLATELET COUNT (BEAKER) (test fksd=588) 47 K/CU MM 150-450 MEAN PLATELET VOLUME (BEAKER) (test jqeo=912) 9.7 fL 9.4-12.4 NUCLEATED RED BLOOD CELLS (BEAKER) (test 0 /100 WBC 0-0 rruy=414) NEUTROPHILS RELATIVE PERCENT (BEAKER) (test 54 % jbkj=606) LYMPHOCYTES RELATIVE PERCENT (BEAKER) (test 17 % jdwi=629) MONOCYTES RELATIVE PERCENT (BEAKER) (test 21 % udow=235) EOSINOPHILS RELATIVE PERCENT (BEAKER) (test 8 % fnkw=813) BASOPHILS RELATIVE PERCENT (BEAKER) (test 1 % qcsy=643) NEUTROPHILS ABSOLUTE COUNT (BEAKER) (test 1.17 K/ L 1.78-5.38 ixlz=791) LYMPHOCYTES ABSOLUTE COUNT (BEAKER) (test 0.36 K/ L 1.32-3.57 giwu=832) MONOCYTES ABSOLUTE COUNT (BEAKER) (test laha=701) 0.45 K/ L 0.30-0.82 EOSINOPHILS ABSOLUTE COUNT (BEAKER) (test 0.17 K/ L 0.04-0.54 tmew=162) BASOPHILS ABSOLUTE COUNT (BEAKER) (test cffh=524) 0.01 K/ L 0.01-0.08 IMMATURE GRANULOCYTES-RELATIVE PERCENT (BEAKER) 1 % 0-1 (test vslg=9606) (MANUAL DIFFERENTIAL)2017-12-31 11:06:00 Test Item Value Reference Range Comments TOTAL COUNTED (BEAKER) (test uvef=5493) [id number] 08:37:00 Test Item Value Reference Range Comments PROTIME (BEAKER) (test gcos=758) 24.0 seconds 11.7-14.7 INR (BEAKER) (test gmnx=030) 2.2 <=5.9 PARTIAL THROMBOPLASTIN TIME (BEAKER) (test 55.2 seconds 22.5-36.0 bbqv=944) RECOMMENDED COUMADIN/WARFARIN INR THERAPY RANGESSTANDARD DOSE: 2.0 - 3.0 Includes: PROPHYLAXIS forvenous thrombosis, systemic embolization; TREATMENT for venous thrombosis and/or pulmonary embolus.HIGH RISK: Target INR is 2.5-3.5 for patients with mechanical heart valves.COMPREHENSIVE METABOLIC [id number] 06:37:00 Test Item Value Reference Range Comments TOTAL PROTEIN (BEAKER) 5.7 gm/dL 6.0-8.3 (test ttoe=116) ALBUMIN (BEAKER) (test 3.7 g/dL 3.5-5.0 pbsm=1468) ALKALINE PHOSPHATASE 70 U/L 40-150 (BEAKER) (test plwu=472) BILIRUBIN TOTAL (BEAKER) 2.6 mg/dL 0.2-1.2 (test wadv=640) SODIUM (BEAKER) (test 130 meq/L 136-145 snob=982) POTASSIUM (BEAKER) (test 5.2 meq/L 3.5-5.1 bcvy=810) CHLORIDE (BEAKER) (test 100 meq/L 98-107 vjga=175) CO2 (BEAKER) (test 25 meq/L 22-29 vdsg=431) BLOOD UREA NITROGEN 20 mg/dL 7-21 (BEAKER) (test kuqn=826) CREATININE (BEAKER) (test 1.08 mg/dL 0.57-1.25 znby=586) GLUCOSE RANDOM (BEAKER) 91 mg/dL 70-105 (test qjnt=367) CALCIUM (BEAKER) (test 9.6 mg/dL 8.4-10.2 bmsr=168) AST (SGOT) (BEAKER) (test 16 U/L 5-34 pgay=313) ALT (SGPT) (BEAKER) (test 6 U/L 6-55 huem=061) EGFR (BEAKER) (test 72 mL/min/1.73 sq m ESTIMATED GFR IS NOT futa=7063) ACCURATE CREATININE CLEARANCE IN PREDICTING GLOMERULAR FILTRATION RATE. ESTIMATED GFR IS NOT APPLICABLE FOR DIALYSIS PATIENTS. Specimen slightly [id number] 06:01:00 Test Item Value Reference Range Comments RPR SCREEN (BEAKER) (test uyoa=131) Nonreactive Nonreactive CRYPTOCOCCAL [id number] 05:59:00 Test Item Value Reference Range Comments CRYPTOCOCCAL ANTIGEN, SERUM (BEAKER) (test Negative Negative, Interference zjrw=4023) RAD, MANDIBLE, MIN 4 [id number] 01:37:00Reason for exam:->liver transplant evalShould this be [...] Barcenas Verified Date/Time: 12/31/2017 01:37:57 Reading Location: [address] Reading Room Electronically signed by: SLICK BARCENAS M.D. on 04/2018 01:37 AMRAD, CHEST, 2 [id number] 23:32:00Reason for exam:-> liver transplant evalShould this [...] MDReport Verified Date/Time: 12/30/2017 23:32:31 Reading Location: [address] Reading Room HEMOGLOBIN [id number] 22:54:00 Test Item Value Reference Range Comments HEMOGLOBIN A1C (BEAKER) (test wndi=778) 4.1 % 4.3-6.1 HEPATITIS B SURFACE [id number] 16:31:00 Test Item Value Reference Range Comments HEPATITIS B SURFACE ANTIBODY (BEAKER) (test < mIU/mL <8.0 gjzr=434) HEPATITIS B SURFACE [id number] 16:29:00 Test Item Value Reference Range Comments HEPATITIS B SURFACE ANTIGEN (2) (BEAKER) (test Nonreactive Nonreactive brec=3258) HEPATITIS B CORE ANTIBODY, [id number] 16:29:00 Test Item Value Reference Range Comments HEPATITIS B CORE IGM ANTIBODY (BEAKER) (test Nonreactive Nonreactive qgxf=820) HEPATITIS A ANTIBODY, [id number] 16:29:00 Test Item Value Reference Range Comments HEPATITIS A IGM ANTIBODY (BEAKER) (test Nonreactive Nonreactive tguz=804) HEPATITIS B CORE ANTIBODY, [id number] 16:29:00 Test Item Value Reference Range Comments HEPATITIS B CORE TOTAL ANTIBODY (BEAKER) (test Nonreactive Nonreactive jprl=230) [id number] 16:26:00 Test Item Value Reference Range Comments T4 TOTAL (BEAKER) (test ckvc=140) 3.5 ug/dL 4.9-11.7 [id number] 16:26:00 Test Item Value Reference Range Comments T3 TOTAL (BEAKER) (test zjtw=564) 42 ng/dL 48-159 [id number] 16:24:00 Test Item Value Reference Range Comments FERRITIN (BEAKER) (test wnhq=073) 1460 ng/mL 5-275 VITAMIN D, [id number] 16:24:00 Test Item Value Reference Range Comments VITAMIN D 25-OH (BEAKER) (test sfnc=9530) 6.9 ng/mL 6.6-49.9 Effective 08/06/2017: Reference Range ChangeNew: 6.6-49.9 ng/mL Previous: 13.0 -47.8 ng/mLRecommended Vitamin D Target Range: 30.0-40.0 ng/[id number] 16: 24:00 Test Item Value Reference Range Comments THYROID STIMULATING HORMONE (BEAKER) (test 1.55 uIU/mL 0.35-4.94 noui=180) CARCINOEMBRYONIC ANTIGEN (CEA)2017-12-30 16:24:00 Test Item Value Reference Range Comments CARCINOEMBRYONIC ANTIGEN (BEAKER) (test rvnl=839) 3.0 ng/mL 0.0-5.0 [id number] 16:23:00 Test Item Value Reference Range Comments PROSTATE SPECIFIC ANTIGEN (BEAKER) (test jncj=611) 0.1 ng/mL 0.0-4.0 HIV-1 ANTIGEN WITH HIV-1/2 [id number] 16:23:00 Test Item Value Reference Range Comments HIV-1 ANTIGEN WITH HIV 1\\T\\2 ANTIBODY (2) Nonreactive Nonreactive (BEAKER) (test qpqh=7858) HEPATITIS C [id number] 16:23:00 Test Item Value Reference Range Comments HEPATITIS C ANTIBODY (BEAKER) (test zcko=194) Nonreactive Nonreactive LIPID [id number] 16:06:00 Test Item Value Reference Range Comments TRIGLYCERIDES (BEAKER) (test jidn=837) 38 mg/dL CHOLESTEROL (BEAKER) (test ynan=093) 51 mg/dL HDL CHOLESTEROL (BEAKER) (test wkws=839) 10 mg/dL LDL CHOLESTEROL CALCULATED (BEAKER) (test mzzb=576) 33 mg/dL Triglyceride Reference Range: Low Risk [...] Value Reference Range Comments IRON (BEAKER) (test sczp=342) 90 ug/dL 40-160 TOTAL IRON BINDING CAPACITY (BEAKER) (test 85 ug/dL 250-450 hdrs=337) IRON % SATURATION (2) (BEAKER) (test ntwz=1709) 106 % 20-55 [id number] 16:04:00 Test Item Value Reference Range Comments TRANSFERRIN (BEAKER) (test vwof=266) 65 mg/dL 174-382 Specimen slightly ictericURIC [id number] 16:02:00 Test Item Value Reference Range Comments URIC ACID (BEAKER) (test vlwj=391) 8.5 mg/dL 2.6-7.2 Specimen slightly [id number] 15:50:00 Test Item Value Reference Range Comments FIBRINOGEN LEVEL (BEAKER) (test orbd=181) 161 mg/dl 225-434 BODY FLUID CULTURE + GRAM [id number] 11:45:00 Test Item Value Reference Range Comments CULTURE (BEAKER) (test krjn=7841) No growth GRAM STAIN RESULT (BEAKER) (test No WBCs qfsy=0743) GRAM STAIN RESULT (BEAKER) (test No organisms seen vnjk=51099) CBC W/PLT COUNT & AUTO [id number] 08:05:00 Test Item Value Reference Range Comments WHITE BLOOD CELL COUNT (BEAKER) (test kror=771) 2.0 K/ L 3.5-10.5 RED BLOOD CELL COUNT (BEAKER) (test bmrj=418) 2.20 M/ L 4.63-6.08 HEMOGLOBIN (BEAKER) (test isiw=835) 7.1 GM/DL 13.7-17.5 HEMATOCRIT (BEAKER) (test kzty=862) 20.8 % 40.1-51.0 MEAN CORPUSCULAR VOLUME (BEAKER) (test upnj=997) 94.5 fL 79.0-92.2 MEAN CORPUSCULAR HEMOGLOBIN (BEAKER) (test 32.3 pg 25.7-32.2 iiox=695) MEAN CORPUSCULAR HEMOGLOBIN CONC (BEAKER) (test 34.1 GM/DL 32.3-36.5 zstj=949) RED CELL DISTRIBUTION WIDTH (BEAKER) (test 17.0 % 11.6-14.4 hdmq=426) PLATELET COUNT (BEAKER) (test lhql=863) 52 K/CU MM 150-450 MEAN PLATELET VOLUME (BEAKER) (test ucde=961) 10.7 fL 9.4-12.4 NUCLEATED RED BLOOD CELLS (BEAKER) (test 0 /100 WBC 0-0 kixz=749) NEUTROPHILS RELATIVE PERCENT (BEAKER) (test 55 % msnb=979) LYMPHOCYTES RELATIVE PERCENT (BEAKER) (test 16 % ziez=811) MONOCYTES RELATIVE PERCENT (BEAKER) (test 20 % uuua=213) EOSINOPHILS RELATIVE PERCENT (BEAKER) (test 8 % levn=920) BASOPHILS RELATIVE PERCENT (BEAKER) (test 1 % sjdt=528) NEUTROPHILS ABSOLUTE COUNT (BEAKER) (test 1.10 K/ L 1.78-5.38 tysf=428) LYMPHOCYTES ABSOLUTE COUNT (BEAKER) (test 0.32 K/ L 1.32-3.57 bibr=261) MONOCYTES ABSOLUTE COUNT (BEAKER) (test ppny=708) 0.40 K/ L 0.30-0.82 EOSINOPHILS ABSOLUTE COUNT (BEAKER) (test 0.16 K/ L 0.04-0.54 qtvv=148) BASOPHILS ABSOLUTE COUNT (BEAKER) (test jnns=860) 0.01 K/ L 0.01-0.08 IMMATURE GRANULOCYTES-RELATIVE PERCENT (BEAKER) 1 % 0-1 (test avoa=2475) (MANUAL DIFFERENTIAL)2017-12-30 08:05:00 Test Item Value Reference Range Comments TOTAL COUNTED (BEAKER) (test clug=4432) URINALYSIS W/ [id number] 06:46:00 Test Item Value Reference Range Comments COLOR (BEAKER) (test zjss=858) Yellow CLARITY (BEAKER) (test rebj=702) Clear SPECIFIC GRAVITY UA (BEAKER) (test xucb=300) 1.008 1.001-1.035 PH UA (BEAKER) (test gfgc=333) 6.0 5.0-8.0 PROTEIN UA (BEAKER) (test adpl=965) Negative Negative GLUCOSE UA (BEAKER) (test lets=795) Negative Negative KETONES UA (BEAKER) (test nqgk=803) Negative Negative BILIRUBIN UA (BEAKER) (test fosk=526) Negative Negative BLOOD UA (BEAKER) (test gdsr=778) Negative Negative NITRITE UA (BEAKER) (test sdvf=112) Negative Negative LEUKOCYTE ESTERASE UA (BEAKER) (test fczr=220) Negative Negative UROBILINOGEN UA (BEAKER) (test xdzb=218) 0.2 mg/dL 0.2-1.0 RBC UA (BEAKER) (test ziql=558) 0 /HPF WBC UA (BEAKER) (test eijc=226) 0 /HPF HYALINE CASTS (BEAKER) (test mfnq=026) 5 /LPF SOURCE(BEAKER) (test zmiv=0196) Urine, Voided SODIUM, RANDOM [id number] 06:35:00 Test Item Value Reference Range Comments SODIUM URINE (BEAKER) (test lalj=065) < meq/L Reference Range: No NormalsPROTEIN, RANDOM [id number] 06:35:00 Test Item Value Reference Range Comments PROTEIN, URINE (BEAKER) (test bpna=8573) < mg/dL 0-14 [id number] 06:21:00 Test Item Value Reference Range Comments MAGNESIUM (BEAKER) (test 1.8 mg/dL 1.6-2.6 Specimen slightly hemolyzed hixm=374) [id number] 06:21:00 Test Item Value Reference Range Comments PHOSPHORUS (BEAKER) (test 2.9 mg/dL 2.3-4.7 Specimen slightly hemolyzed mmdw=155) COMPREHENSIVE METABOLIC [id number] 06:21:00 Test Item Value Reference Range Comments TOTAL PROTEIN (BEAKER) 5.6 gm/dL 6.0-8.3 Specimen slightly (test zaff=141) hemolyzed ALBUMIN (BEAKER) (test 3.5 g/dL 3.5-5.0 Specimen slightly ayoq=3425) hemolyzed ALKALINE PHOSPHATASE 75 U/L 40-150 (BEAKER) (test iftl=337) BILIRUBIN TOTAL (BEAKER) 3.0 mg/dL 0.2-1.2 Specimen slightly (test arlq=618) hemolyzed SODIUM (BEAKER) (test 127 meq/L 136-145 tddh=380) POTASSIUM (BEAKER) (test 5.2 meq/L 3.5-5.1 Specimen slightly amca=820) hemolyzed CHLORIDE (BEAKER) (test 97 meq/L 98-107 cfra=533) CO2 (BEAKER) (test 24 meq/L 22-29 lbmx=856) BLOOD UREA NITROGEN 22 mg/dL 7-21 (BEAKER) (test soue=543) CREATININE (BEAKER) (test 1.11 mg/dL 0.57-1.25 Specimen slightly ypar=006) hemolyzed GLUCOSE RANDOM (BEAKER) 94 mg/dL 70-105 (test xwvh=844) CALCIUM (BEAKER) (test 9.4 mg/dL 8.4-10.2 lekc=698) AST (SGOT) (BEAKER) (test 22 U/L 5-34 Specimen slightly lxpv=039) hemolyzed ALT (SGPT) (BEAKER) (test 7 U/L 6-55 Specimen slightly nwkr=227) hemolyzed EGFR (BEAKER) (test 70 mL/min/1.73 sq m ESTIMATED GFR IS NOT fhmv=5949) ACCURATE CREATININE CLEARANCE IN PREDICTING GLOMERULAR FILTRATION RATE. ESTIMATED GFR IS NOT APPLICABLE FOR DIALYSIS PATIENTS. Specimen slightly ictericCREATININE, RANDOM [id number] 06:19:00 Test Item Value Reference Range Comments CREATININE URINE (BEAKER) (test olwy=001) 60.6 mg/dL Reference Range: No [id number] 13:43:00 Test Item Value Reference Range Comments ETHANOL (BEAKER) (test bjfm=904) < mg/dL <=10 COMPREHENSIVE METABOLIC [id number] 08:23:00 Test Item Value Reference Range Comments TOTAL PROTEIN (BEAKER) 5.5 gm/dL 6.0-8.3 (test btvr=112) ALBUMIN (BEAKER) (test 3.3 g/dL 3.5-5.0 lpds=3556) ALKALINE PHOSPHATASE 85 U/L 40-150 (BEAKER) (test agdd=647) BILIRUBIN TOTAL (BEAKER) 3.8 mg/dL 0.2-1.2 (test zupq=813) SODIUM (BEAKER) (test 125 meq/L 136-145 sqvi=476) POTASSIUM (BEAKER) (test 4.7 meq/L 3.5-5.1 ebeq=020) CHLORIDE (BEAKER) (test 96 meq/L 98-107 mcix=773) CO2 (BEAKER) (test 21 meq/L 22-29 gddj=489) BLOOD UREA NITROGEN 22 mg/dL 7-21 (BEAKER) (test jtom=502) CREATININE (BEAKER) (test 1.26 mg/dL 0.57-1.25 sjns=858) GLUCOSE RANDOM (BEAKER) 95 mg/dL 70-105 (test qdzy=273) CALCIUM (BEAKER) (test 9.1 mg/dL 8.4-10.2 nrqm=389) AST (SGOT) (BEAKER) (test 20 U/L 5-34 imty=093) ALT (SGPT) (BEAKER) (test 8 U/L 6-55 rbvu=167) EGFR (BEAKER) (test 60 mL/min/1.73 sq m ESTIMATED GFR IS NOT dyov=0090) ACCURATE CREATININE CLEARANCE IN PREDICTING GLOMERULAR FILTRATION RATE. ESTIMATED GFR IS NOT APPLICABLE FOR DIALYSIS PATIENTS. Specimen slightly ictericCBC W/PLT COUNT & AUTO [id number] 07:17 :00 Test Item Value Reference Range Comments WHITE BLOOD CELL COUNT (BEAKER) (test dcud=389) 2.8 K/ L 3.5-10.5 RED BLOOD CELL COUNT (BEAKER) (test gfwa=895) 2.28 M/ L 4.63-6.08 HEMOGLOBIN (BEAKER) (test jbty=066) 7.3 GM/DL 13.7-17.5 HEMATOCRIT (BEAKER) (test gdcm=538) 21.4 % 40.1-51.0 MEAN CORPUSCULAR VOLUME (BEAKER) (test kear=766) 93.9 fL 79.0-92.2 MEAN CORPUSCULAR HEMOGLOBIN (BEAKER) (test 32.0 pg 25.7-32.2 qqqx=136) MEAN CORPUSCULAR HEMOGLOBIN CONC (BEAKER) (test 34.1 GM/DL 32.3-36.5 bxvu=372) RED CELL DISTRIBUTION WIDTH (BEAKER) (test 16.9 % 11.6-14.4 gdxu=810) PLATELET COUNT (BEAKER) (test aywr=343) 52 K/CU MM 150-450 MEAN PLATELET VOLUME (BEAKER) (test cdcm=410) 9.8 fL 9.4-12.4 NUCLEATED RED BLOOD CELLS (BEAKER) (test 0 /100 WBC 0-0 qdkb=904) NEUTROPHILS RELATIVE PERCENT (BEAKER) (test 61 % knej=500) LYMPHOCYTES RELATIVE PERCENT (BEAKER) (test 14 % hvor=832) MONOCYTES RELATIVE PERCENT (BEAKER) (test 18 % rguw=454) EOSINOPHILS RELATIVE PERCENT (BEAKER) (test 7 % whwo=305) BASOPHILS RELATIVE PERCENT (BEAKER) (test 0 % cxle=077) NEUTROPHILS ABSOLUTE COUNT (BEAKER) (test 1.69 K/ L 1.78-5.38 acnu=393) LYMPHOCYTES ABSOLUTE COUNT (BEAKER) (test 0.38 K/ L 1.32-3.57 jtxi=007) MONOCYTES ABSOLUTE COUNT (BEAKER) (test qngx=194) 0.51 K/ L 0.30-0.82 EOSINOPHILS ABSOLUTE COUNT (BEAKER) (test 0.18 K/ L 0.04-0.54 cfjt=799) BASOPHILS ABSOLUTE COUNT (BEAKER) (test gkkh=421) 0.01 K/ L 0.01-0.08 IMMATURE GRANULOCYTES-RELATIVE PERCENT (BEAKER) 1 % 0-1 (test gpoa=3377) CT, [id number] 22:20:00FINAL REPORT EXAM: CT of the abdomen [...] MDReport Verified Date/Time: 12/28/2017 22:20:52 Reading Location: [address] Transitional Reading Room CBC W/PLT COUNT & AUTO [id number] 18:06:00 Test Item Value Reference Range Comments WHITE BLOOD CELL COUNT (BEAKER) (test zmvz=987) 2.9 K/ L 3.5-10.5 RED BLOOD CELL COUNT (BEAKER) (test dwig=947) 2.03 M/ L 4.63-6.08 HEMOGLOBIN (BEAKER) (test dawv=602) 6.5 GM/DL 13.7-17.5 HEMATOCRIT (BEAKER) (test jbbe=963) 19.2 % 40.1-51.0 MEAN CORPUSCULAR VOLUME (BEAKER) (test xmvi=991) 94.6 fL 79.0-92.2 MEAN CORPUSCULAR HEMOGLOBIN (BEAKER) (test 32.0 pg 25.7-32.2 rzhf=288) MEAN CORPUSCULAR HEMOGLOBIN CONC (BEAKER) (test 33.9 GM/DL 32.3-36.5 golj=524) RED CELL DISTRIBUTION WIDTH (BEAKER) (test 17.6 % 11.6-14.4 ffhb=355) PLATELET COUNT (BEAKER) (test tovf=571) 46 K/CU MM 150-450 MEAN PLATELET VOLUME (BEAKER) (test pvqe=032) 9.3 fL 9.4-12.4 NUCLEATED RED BLOOD CELLS (BEAKER) (test 0 /100 WBC 0-0 gxan=352) NEUTROPHILS RELATIVE PERCENT (BEAKER) (test 66 % wzhe=365) LYMPHOCYTES RELATIVE PERCENT (BEAKER) (test 12 % fies=456) MONOCYTES RELATIVE PERCENT (BEAKER) (test 15 % ixyx=359) EOSINOPHILS RELATIVE PERCENT (BEAKER) (test 6 % hngt=865) BASOPHILS RELATIVE PERCENT (BEAKER) (test 0 % cgvs=726) NEUTROPHILS ABSOLUTE COUNT (BEAKER) (test 1.92 K/ L 1.78-5.38 gbfs=012) LYMPHOCYTES ABSOLUTE COUNT (BEAKER) (test 0.36 K/ L 1.32-3.57 hcmc=916) MONOCYTES ABSOLUTE COUNT (BEAKER) (test tpoh=601) 0.44 K/ L 0.30-0.82 EOSINOPHILS ABSOLUTE COUNT (BEAKER) (test 0.16 K/ L 0.04-0.54 iezd=960) BASOPHILS ABSOLUTE COUNT (BEAKER) (test faff=621) 0.01 K/ L 0.01-0.08 IMMATURE GRANULOCYTES-RELATIVE PERCENT (BEAKER) 1 % 0-1 (test arsi=9627) CBC W/PLT COUNT & AUTO [id number] 12:30:00 Test Item Value Reference Range Comments WHITE BLOOD CELL COUNT (BEAKER) (test tqxj=656) 3.1 K/ L 3.5-10.5 RED BLOOD CELL COUNT (BEAKER) (test iisw=921) 2.09 M/ L 4.63-6.08 HEMOGLOBIN (BEAKER) (test ifio=889) 6.8 GM/DL 13.7-17.5 HEMATOCRIT (BEAKER) (test noql=424) 19.9 % 40.1-51.0 MEAN CORPUSCULAR VOLUME (BEAKER) (test gzbj=384) 95.2 fL 79.0-92.2 MEAN CORPUSCULAR HEMOGLOBIN (BEAKER) (test 32.5 pg 25.7-32.2 zvdp=541) MEAN CORPUSCULAR HEMOGLOBIN CONC (BEAKER) (test 34.2 GM/DL 32.3-36.5 wdzs=657) RED CELL DISTRIBUTION WIDTH (BEAKER) (test 17.5 % 11.6-14.4 gqju=366) PLATELET COUNT (BEAKER) (test svpi=257) 65 K/CU MM 150-450 MEAN PLATELET VOLUME (BEAKER) (test ucoh=674) 10.6 fL 9.4-12.4 NUCLEATED RED BLOOD CELLS (BEAKER) (test 0 /100 WBC 0-0 dnhu=860) NEUTROPHILS RELATIVE PERCENT (BEAKER) (test 60 % avpy=816) LYMPHOCYTES RELATIVE PERCENT (BEAKER) (test 14 % zizk=406) MONOCYTES RELATIVE PERCENT (BEAKER) (test 17 % lddf=910) EOSINOPHILS RELATIVE PERCENT (BEAKER) (test 8 % jddf=837) BASOPHILS RELATIVE PERCENT (BEAKER) (test 0 % xcgl=250) NEUTROPHILS ABSOLUTE COUNT (BEAKER) (test 1.85 K/ L 1.78-5.38 yjtn=687) LYMPHOCYTES ABSOLUTE COUNT (BEAKER) (test 0.42 K/ L 1.32-3.57 lfpb=977) MONOCYTES ABSOLUTE COUNT (BEAKER) (test zyvi=106) 0.52 K/ L 0.30-0.82 EOSINOPHILS ABSOLUTE COUNT (BEAKER) (test 0.26 K/ L 0.04-0.54 lgzm=903) BASOPHILS ABSOLUTE COUNT (BEAKER) (test wntm=526) 0.01 K/ L 0.01-0.08 IMMATURE GRANULOCYTES-RELATIVE PERCENT (BEAKER) 1 % 0-1 (test vvek=7250) U/S, [id number] 06:59:00Limit fluid removal to no more than 5 litersReason for exam:->ascites, concern for sbpShould thisbe performed at the bedside?->NoFINAL REPORT Paracentesis dated 2017 Procedure: Ultrasound-guided paracentesis. Preprocedure diagnosis: Ascites Postprocedure diagnosis: Ascites Conscious sedation: None. Radiologist: Lena Lynn M.D. Rn Surgical Pcu: None Anesthesia: 1% Xylocaine mixed with sodium bicarbonate local anesthesia. Technique: After obtaining informed consent, ultrasound-guided paracentesis was performed under usual sterile technique. Using a 5 cameroonian drainage catheter, puncture was made in the right lower quadrant abdomen. Approximately 5000 cc of serous fluid was removed. Patient tolerated the procedure well without complication. Complication: None Graft/ Implant: None Estimated Blood Loss: NoneImpression: Ultrasound-guided paracentesis. Signed: Lena Lynn MDReport Verified Date/Time: 12/28/2017 06:59 :16 Reading Location: [facility] B1 C013Y CT Body Reading Room ALPHA FETOPROTEIN (AFP), TUMOR [id number] 06:22:00 Test Item Value Reference Range Comments ALPHA-FETOPROTEIN (BEAKER) (test qhgo=8366) 4.1 ng/mL <10.0 COMPREHENSIVE METABOLIC [id number] 06:00:00 Test Item Value Reference Range Comments TOTAL PROTEIN (BEAKER) 5.3 gm/dL 6.0-8.3 (test xgrs=788) ALBUMIN (BEAKER) (test 2.7 g/dL 3.5-5.0 wyqj=0886) ALKALINE PHOSPHATASE 94 U/L 40-150 (BEAKER) (test viic=215) BILIRUBIN TOTAL (BEAKER) 3.7 mg/dL 0.2-1.2 (test dbmp=213) SODIUM (BEAKER) (test 124 meq/L 136-145 qoto=272) POTASSIUM (BEAKER) (test 4.6 meq/L 3.5-5.1 zgkw=983) CHLORIDE (BEAKER) (test 96 meq/L 98-107 rvdj=338) CO2 (BEAKER) (test 22 meq/L 22-29 rmiq=488) BLOOD UREA NITROGEN 22 mg/dL 7-21 (BEAKER) (test mhvr=852) CREATININE (BEAKER) (test 1.40 mg/dL 0.57-1.25 bzge=407) GLUCOSE RANDOM (BEAKER) 89 mg/dL 70-105 (test eutx=488) CALCIUM (BEAKER) (test 8.8 mg/dL 8.4-10.2 jxrt=120) AST (SGOT) (BEAKER) (test 25 U/L 5-34 ftyy=352) ALT (SGPT) (BEAKER) (test 10 U/L 6-55 aqwq=024) EGFR (BEAKER) (test 53 mL/min/1.73 sq m ESTIMATED GFR IS NOT wqqf=7294) ACCURATE CREATININE CLEARANCE IN PREDICTING GLOMERULAR FILTRATION RATE. ESTIMATED GFR IS NOT APPLICABLE FOR DIALYSIS PATIENTS. Specimen slightly ictericCBC W/PLT COUNT & AUTO [id number] 05:50 :00 Test Item Value Reference Range Comments WHITE BLOOD CELL COUNT (BEAKER) (test jvcf=079) 3.1 K/ L 3.5-10.5 RED BLOOD CELL COUNT (BEAKER) (test xefh=688) 2.00 M/ L 4.63-6.08 HEMOGLOBIN (BEAKER) (test tzpc=167) 6.4 GM/DL 13.7-17.5 HEMATOCRIT (BEAKER) (test jzso=119) 18.9 % 40.1-51.0 MEAN CORPUSCULAR VOLUME (BEAKER) (test msse=385) 94.5 fL 79.0-92.2 MEAN CORPUSCULAR HEMOGLOBIN (BEAKER) (test 32.0 pg 25.7-32.2 nlez=172) MEAN CORPUSCULAR HEMOGLOBIN CONC (BEAKER) (test 33.9 GM/DL 32.3-36.5 wqpo=615) RED CELL DISTRIBUTION WIDTH (BEAKER) (test 17.9 % 11.6-14.4 bvtx=615) PLATELET COUNT (BEAKER) (test iauf=571) 59 K/CU MM 150-450 MEAN PLATELET VOLUME (BEAKER) (test vbnj=109) 10.4 fL 9.4-12.4 NUCLEATED RED BLOOD CELLS (BEAKER) (test 0 /100 WBC 0-0 qajv=552) NEUTROPHILS RELATIVE PERCENT (BEAKER) (test 63 % neam=948) LYMPHOCYTES RELATIVE PERCENT (BEAKER) (test 14 % bjic=928) MONOCYTES RELATIVE PERCENT (BEAKER) (test 15 % oloq=639) EOSINOPHILS RELATIVE PERCENT (BEAKER) (test 7 % xvwt=481) BASOPHILS RELATIVE PERCENT (BEAKER) (test 0 % wjny=711) NEUTROPHILS ABSOLUTE COUNT (BEAKER) (test 1.94 K/ L 1.78-5.38 flba=067) LYMPHOCYTES ABSOLUTE COUNT (BEAKER) (test 0.44 K/ L 1.32-3.57 yfpl=767) MONOCYTES ABSOLUTE COUNT (BEAKER) (test kavw=382) 0.47 K/ L 0.30-0.82 EOSINOPHILS ABSOLUTE COUNT (BEAKER) (test 0.21 K/ L 0.04-0.54 pssq=027) BASOPHILS ABSOLUTE COUNT (BEAKER) (test pibo=248) 0.01 K/ L 0.01-0.08 IMMATURE GRANULOCYTES-RELATIVE PERCENT (BEAKER) 1 % 0-1 (test ujby=7959) BODY FLUID CELL COUNT WITH [id number] 20:39:00 Test Item Value Reference Range Comments APPEARANCE FLUID (BEAKER) (test rucc=733) Slightly Hazy Clear COLOR FLUID (BEAKER) (test chnr=239) Yellow Colorless, Straw RBC FLUID (BEAKER) (test rpqi=965) 90 /cu mm <=1 ADJUSTED WBC FLUID (BEAKER) (test jjps=0028) 47 /cu mm <=5 LINING CELLS (BEAKER) (test hvbe=4840) 3 /cu mm <=1 NEUTROPHILS FLUID (BEAKER) (test pkon=9392) 2 % LYMPHS FLUID (BEAKER) (test txvj=830) 19 % MONO/MACROPHAGE FLUID (BEAKER) (test 79 % cbpx=113) EOSINOPHILS FLUID (BEAKER) (test jizv=933) 0 % BASO FLUID (BEAKER) (test azqx=055) 0 % CONTAINER BODY FLUID (BEAKER) (test EDTA Tube yvhb=1844) ALBUMIN, BODY [id number] 20:14:00 Test Item Value Reference Range Comments ALBUMIN FLUID (BEAKER) (test imzr=840) 0.4 gm/dL Reference Range: No Normals Assay performance has not been validated for this type of specimen.BASIC METABOLIC [id number] 10:31:00 Test Item Value Reference Range Comments SODIUM (BEAKER) (test 125 meq/L 136-145 vmzt=611) POTASSIUM (BEAKER) (test 4.5 meq/L 3.5-5.1 yfav=659) CHLORIDE (BEAKER) (test 98 meq/L 98-107 umtq=287) CO2 (BEAKER) (test 20 meq/L 22-29 igix=714) BLOOD UREA NITROGEN 22 mg/dL 7-21 (BEAKER) (test ogpz=903) CREATININE (BEAKER) (test 1.45 mg/dL 0.57-1.25 qmoo=685) GLUCOSE RANDOM (BEAKER) 87 mg/dL 70-105 (test yzmu=286) CALCIUM (BEAKER) (test 8.6 mg/dL 8.4-10.2 dehm=570) EGFR (BEAKER) (test 51 mL/min/1.73 sq m ESTIMATED GFR IS NOT hqyl=1370) ACCURATE CREATININE CLEARANCE IN PREDICTING GLOMERULAR FILTRATION RATE. ESTIMATED GFR IS NOT APPLICABLE FOR DIALYSIS PATIENTS. Specimen slightly ictericHEPATIC FUNCTION [id number] 10:31:00 Test Item Value Reference Range Comments TOTAL PROTEIN (BEAKER) (test sqyf=569) 5.8 gm/dL 6.0-8.3 ALBUMIN (BEAKER) (test xgxz=1151) 2.4 g/dL 3.5-5.0 BILIRUBIN TOTAL (BEAKER) (test csbc=926) 4.1 mg/dL 0.2-1.2 BILIRUBIN DIRECT (BEAKER) (test oixp=363) 3.1 mg/dL 0.1-0.5 ALKALINE PHOSPHATASE (BEAKER) (test uafd=338) 126 U/L 40-150 AST (SGOT) (BEAKER) (test ouvy=699) 28 U/L 5-34 ALT (SGPT) (BEAKER) (test joac=508) 13 U/L 6-55 Specimen slightly ictericCBC W/PLT COUNT & AUTO [id number] 10:09 :00 Test Item Value Reference Range Comments WHITE BLOOD CELL COUNT (BEAKER) (test yzaz=087) 5.5 K/ L 3.5-10.5 RED BLOOD CELL COUNT (BEAKER) (test lxgv=462) 2.56 M/ L 4.63-6.08 HEMOGLOBIN (BEAKER) (test xfxp=202) 8.1 GM/DL 13.7-17.5 HEMATOCRIT (BEAKER) (test ibvg=717) 24.2 % 40.1-51.0 MEAN CORPUSCULAR VOLUME (BEAKER) (test hdre=491) 94.5 fL 79.0-92.2 MEAN CORPUSCULAR HEMOGLOBIN (BEAKER) (test 31.6 pg 25.7-32.2 luor=457) MEAN CORPUSCULAR HEMOGLOBIN CONC (BEAKER) (test 33.5 GM/DL 32.3-36.5 cxrh=461) RED CELL DISTRIBUTION WIDTH (BEAKER) (test 18.6 % 11.6-14.4 tvja=283) PLATELET COUNT (BEAKER) (test flbp=672) 86 K/CU MM 150-450 MEAN PLATELET VOLUME (BEAKER) (test voyb=317) 9.7 fL 9.4-12.4 NUCLEATED RED BLOOD CELLS (BEAKER) (test 0 /100 WBC 0-0 qaib=500) NEUTROPHILS RELATIVE PERCENT (BEAKER) (test 65 % xtod=411) LYMPHOCYTES RELATIVE PERCENT (BEAKER) (test 13 % mxxj=939) MONOCYTES RELATIVE PERCENT (BEAKER) (test 14 % gzkt=347) EOSINOPHILS RELATIVE PERCENT (BEAKER) (test 6 % rsov=025) BASOPHILS RELATIVE PERCENT (BEAKER) (test 0 % vtng=379) NEUTROPHILS ABSOLUTE COUNT (BEAKER) (test 3.59 K/ L 1.78-5.38 elnl=374) LYMPHOCYTES ABSOLUTE COUNT (BEAKER) (test 0.73 K/ L 1.32-3.57 bnow=321) MONOCYTES ABSOLUTE COUNT (BEAKER) (test dbed=868) 0.76 K/ L 0.30-0.82 EOSINOPHILS ABSOLUTE COUNT (BEAKER) (test 0.33 K/ L 0.04-0.54 vqws=857) BASOPHILS ABSOLUTE COUNT (BEAKER) (test kphq=077) 0.02 K/ L 0.01-0.08 IMMATURE GRANULOCYTES-RELATIVE PERCENT (BEAKER) 1 % 0-1 (test xjgd=0766) PROTHROMBIN [id number] 07:51:00 Test Item Value Reference Range Comments PROTIME (BEAKER) (test mqdn=103) 23.8 seconds 11.7-14.7 INR (BEAKER) (test tmld=456) 2.1 <=5.9 RECOMMENDED COUMADIN/WARFARIN INR THERAPY RANGESSTANDARD DOSE: 2.0 - 3.0 Includes: PROPHYLAXIS forvenous thrombosis, systemic embolization; TREATMENT for venous thrombosis and/or pulmonary embolus.HIGH RISK: Target INR is 2.5-3.5 for patients with mechanical heart valves.BLOOD [id number] 05:02:00 Test Item Value Reference Range Comments CULTURE (BEAKER) (test tytw=4451) No growth in 5 days BLOOD [id number] 05:02:00 Test Item Value Reference Range Comments CULTURE (BEAKER) (test uozf=3898) No growth in 5 days BODY FLUID CULTURE + GRAM [id number] 09:05:00 Test Item Value Reference Range Comments CULTURE (BEAKER) (test ucml=4990) No growth GRAM STAIN RESULT (BEAKER) (test No White blood cells seen cjho=5888) GRAM STAIN RESULT (BEAKER) (test No organisms seen towm=94054) RAPID DRUG SCREEN, [id number] 23:13:00 Test Item Value Reference Range Comments BARBITURATE URINE (BEAKER) (test igzr=703) Negative Negative BENZODIAZEPINE SCREEN URINE (BEAKER) (test Negative Negative ovkg=656) COCAINE (METAB.) SCREEN (BEAKER) (test agjw=4949) Negative Negative METHADONE SCREEN (BEAKER) (test ccss=8350) Negative Negative OPIATE SCREEN URINE (BEAKER) (test rmda=669) Negative Negative CANNABINOID SCREEN URINE (BEAKER) (test uyhj=514) Negative Negative AMPH/METHAMPH SCREEN (BEAKER) (test yepe=2330) Negative Negative PHENCYCLIDINE SCREEN URINE (BEAKER) (test obul=271) Negative Negative OXYCODONE SCREEN URINE (BEAKER) (test bsbm=2097) Negative Negative DRUG CUTOFF CONC.Cocaine 300 ng/mL Cannabinoid 50 ng/mL Benzodiazepine 200 ng/mLBarbiturate 200 ng/ mLPhencyclidine 25 ng/mLOpiate 300 ng/mLMethadone 300 ng/mLAmphetamine/ 1000 ng/mL MethamphetamineOxycodone 300 ng/mLThis assay provides an unconfirmed qualitative test result for the clinical management of patients in emergency situations. Chain of custody not maintained. Some hozo-qez-xemujff medications, as well as adulterants, may cause inaccurate results. Clinical correlation should be applied. A more comprehensive drug screen or confirmation of a detected drug may be performed upon request.MR, ABDOMEN, [id number] 13:52:00FINAL REPORT MRI of the abdomen with [...] MDReport Verified Date/Time: 09/05/2017 13:52:35 Reading Location: [address] BodyReading Room CBC W/PLT COUNT & AUTO [id number] 05:46:00 Test Item Value Reference Range Comments WHITE BLOOD CELL COUNT (BEAKER) (test twff=476) 4.7 K/ L 3.5-10.5 RED BLOOD CELL COUNT (BEAKER) (test glvq=465) 2.49 M/ L 4.63-6.08 HEMOGLOBIN (BEAKER) (test hxtz=262) 7.9 GM/DL 13.7-17.5 HEMATOCRIT (BEAKER) (test vauc=731) 22.6 % 40.1-51.0 MEAN CORPUSCULAR VOLUME (BEAKER) (test wpkh=864) 90.8 fL 79.0-92.2 MEAN CORPUSCULAR HEMOGLOBIN (BEAKER) (test 31.7 pg 25.7-32.2 naud=744) MEAN CORPUSCULAR HEMOGLOBIN CONC (BEAKER) (test 35.0 GM/DL 32.3-36.5 vxrl=005) RED CELL DISTRIBUTION WIDTH (BEAKER) (test 18.8 % 11.6-14.4 xpnp=399) PLATELET COUNT (BEAKER) (test kasz=830) 60 K/CU MM 150-450 MEAN PLATELET VOLUME (BEAKER) (test mnmf=116) 9.2 fL 9.4-12.4 NUCLEATED RED BLOOD CELLS (BEAKER) (test 0 /100 WBC 0-0 xmwe=837) NEUTROPHILS RELATIVE PERCENT (BEAKER) (test 65 % ptzn=327) LYMPHOCYTES RELATIVE PERCENT (BEAKER) (test 13 % uqss=657) MONOCYTES RELATIVE PERCENT (BEAKER) (test 15 % czcv=978) EOSINOPHILS RELATIVE PERCENT (BEAKER) (test 6 % tsrn=091) BASOPHILS RELATIVE PERCENT (BEAKER) (test 0 % qxsi=966) NEUTROPHILS ABSOLUTE COUNT (BEAKER) (test 3.05 K/ L 1.78-5.38 ymri=441) LYMPHOCYTES ABSOLUTE COUNT (BEAKER) (test 0.62 K/ L 1.32-3.57 zfsy=830) MONOCYTES ABSOLUTE COUNT (BEAKER) (test ykny=168) 0.68 K/ L 0.30-0.82 EOSINOPHILS ABSOLUTE COUNT (BEAKER) (test 0.28 K/ L 0.04-0.54 yilx=534) BASOPHILS ABSOLUTE COUNT (BEAKER) (test qoka=135) 0.02 K/ L 0.01-0.08 IMMATURE GRANULOCYTES-RELATIVE PERCENT (BEAKER) 1 % 0-1 (test lgpc=7026) BASIC METABOLIC [id number] 05:44:00 Test Item Value Reference Range Comments SODIUM (BEAKER) (test 127 meq/L 136-145 gokf=653) POTASSIUM (BEAKER) (test 4.5 meq/L 3.5-5.1 lexe=565) CHLORIDE (BEAKER) (test 101 meq/L 98-107 uipk=552) CO2 (BEAKER) (test 19 meq/L 22-29 hytt=086) BLOOD UREA NITROGEN 17 mg/dL 7-21 (BEAKER) (test wxjx=863) CREATININE (BEAKER) (test 0.91 mg/dL 0.57-1.25 xuwf=901) GLUCOSE RANDOM (BEAKER) 107 mg/dL 70-105 (test kcov=194) CALCIUM (BEAKER) (test 9.4 mg/dL 8.4-10.2 plro=129) EGFR (BEAKER) (test 87 mL/min/1.73 sq m ESTIMATED GFR IS NOT otzr=6064) ACCURATE CREATININE CLEARANCE IN PREDICTING GLOMERULAR FILTRATION RATE. ESTIMATED GFR IS NOT APPLICABLE FOR DIALYSIS PATIENTS. Specimen moderately ictericHEPATIC FUNCTION [id number] 05:44:00 Test Item Value Reference Range Comments TOTAL PROTEIN (BEAKER) (test khcf=793) 5.6 gm/dL 6.0-8.3 ALBUMIN (BEAKER) (test mtag=3109) 3.3 g/dL 3.5-5.0 BILIRUBIN TOTAL (BEAKER) (test ptmn=167) 10.3 mg/dL 0.2-1.2 BILIRUBIN DIRECT (BEAKER) (test jmjf=502) 6.8 mg/dL 0.1-0.5 ALKALINE PHOSPHATASE (BEAKER) (test mebz=596) 103 U/L 40-150 AST (SGOT) (BEAKER) (test ktgx=422) 17 U/L 5-34 ALT (SGPT) (BEAKER) (test idwc=980) 8 U/L 6-55 Specimen moderately ictericPT/[id number] 05:31:00 Test Item Value Reference Range Comments PROTIME (BEAKER) (test qoza=835) 25.6 seconds 11.7-14.7 INR (BEAKER) (test bdio=015) 2.3 <=5.9 PARTIAL THROMBOPLASTIN TIME (BEAKER) (test 51.6 seconds 22.5-36.0 sgqi=928) RECOMMENDED COUMADIN/WARFARIN INR THERAPY RANGESSTANDARD DOSE: 2.0 - 3.0 Includes: PROPHYLAXIS forvenous thrombosis, systemic embolization; TREATMENT for venous thrombosis and/or pulmonary embolus.HIGH RISK: Target INR is 2.5-3.5 for patients with mechanical heart valves.PROTHROMBIN TIME/[id number] 05:30: 00 Test Item Value Reference Range Comments PROTIME (BEAKER) (test ovhw=741) 25.6 seconds 11.7-14.7 INR (BEAKER) (test yjsr=109) 2.3 <=5.9 RECOMMENDED COUMADIN/WARFARIN INR THERAPY RANGESSTANDARD DOSE: 2.0 - 3.0 Includes: PROPHYLAXIS forvenous thrombosis, systemic embolization; TREATMENT for venous thrombosis and/or pulmonary embolus.HIGH RISK: Target INR is 2.5-3.5 for patients with mechanical heart valves.BODY FLUID CELL COUNT WITH [id number] 19:30:00 Test Item Value Reference Range Comments APPEARANCE FLUID (BEAKER) (test jtts=649) Slightly Hazy Clear COLOR FLUID (BEAKER) (test bpaz=008) Yellow Colorless, Straw RBC FLUID (BEAKER) (test ftyj=204) 100 /cu mm <=1 ADJUSTED WBC FLUID (BEAKER) (test opwr=9702) 36 /cu mm <=5 LINING CELLS (BEAKER) (test dzkt=4378) 4 /cu mm <=1 NEUTROPHILS FLUID (BEAKER) (test elrv=2612) 0 % LYMPHS FLUID (BEAKER) (test qmls=181) 20 % MONO/MACROPHAGE FLUID (BEAKER) (test 80 % exdt=449) EOSINOPHILS FLUID (BEAKER) (test rjvz=332) 0 % BASO FLUID (BEAKER) (test ntte=929) 0 % CONTAINER BODY FLUID (BEAKER) (test EDTA Tube exsr=4382) U/S, [id number] 16:21:00Reason for exam:->ascitesShould this be performed at the bedside?->NoFINAL REPORT PROCEDURE: Ultrasound-guided paracentesis. INDICATION: 52-year-old man with ascites. DESCRIPTION: After obtaining informed written consent, ultrasound scan of the abdomen identified ascites in the right lower quadrant. The overlying skin was prepped and draped in the usual, sterile fashion and local 1% lidocaine anesthesia was administered. A 5 [place] catheter was advanced into the peritoneal cavity and 13,200 cc of cloudy yellow fluid was removed. The catheter was removed without immediate complication. Samples were sent for analysis. IMPRESSION:Uncomplicated ultrasound-guided paracentesis with 13,200 cc fluid removed. Signed: Candice Mckeon Verified Date/Time: 2016 16:21:22 Reading Location: [facility] [id number] Ultrasound Reading Room BASIC METABOLIC [id number] 11:07:00 Test Item Value Reference Range Comments SODIUM (BEAKER) (test 127 meq/L 136-145 qctj=382) POTASSIUM (BEAKER) (test 4.1 meq/L 3.5-5.1 pnsy=492) CHLORIDE (BEAKER) (test 101 meq/L 98-107 jftf=918) CO2 (BEAKER) (test 23 meq/L 22-29 saad=444) BLOOD UREA NITROGEN 17 mg/dL 7-21 (BEAKER) (test fjnd=373) CREATININE (BEAKER) (test 1.06 mg/dL 0.57-1.25 jdeb=387) GLUCOSE RANDOM (BEAKER) 104 mg/dL 70-105 (test vqli=567) CALCIUM (BEAKER) (test 8.9 mg/dL 8.4-10.2 tapd=252) EGFR (BEAKER) (test 73 mL/min/1.73 sq m ESTIMATED GFR IS NOT fsti=3101) ACCURATE CREATININE CLEARANCE IN PREDICTING GLOMERULAR FILTRATION RATE. ESTIMATED GFR IS NOT APPLICABLE FOR DIALYSIS PATIENTS. Specimen markedly ictericHEPATIC FUNCTION [id number] 11:07:00 Test Item Value Reference Range Comments TOTAL PROTEIN (BEAKER) (test yzfr=733) 5.4 gm/dL 6.0-8.3 ALBUMIN (BEAKER) (test ogmw=0436) 2.8 g/dL 3.5-5.0 BILIRUBIN TOTAL (BEAKER) (test ycpi=137) 12.7 mg/dL 0.2-1.2 BILIRUBIN DIRECT (BEAKER) (test qiyf=804) 7.8 mg/dL 0.1-0.5 ALKALINE PHOSPHATASE (BEAKER) (test ijmd=119) 90 U/L 40-150 AST (SGOT) (BEAKER) (test ypgp=618) 22 U/L 5-34 ALT (SGPT) (BEAKER) (test vfxh=152) 11 U/L 6-55 Specimen markedly ictericPT/[id number] 11:02:00 Test Item Value Reference Range Comments PROTIME (BEAKER) (test hinp=390) 23.4 seconds 11.7-14.7 INR (BEAKER) (test maya=332) 2.1 <=5.9 PARTIAL THROMBOPLASTIN TIME (BEAKER) (test 48.7 seconds 22.5-36.0 kgxc=658) RECOMMENDED COUMADIN/WARFARIN INR THERAPY RANGESSTANDARD DOSE: 2.0 - 3.0 Includes: PROPHYLAXIS forvenous thrombosis, systemic embolization; TREATMENT for venous thrombosis and/or pulmonary embolus.HIGH RISK: Target INR is 2.5-3.5 for patients with mechanical heart valves.PROTHROMBIN TIME/[id number] 11:01: 00 Test Item Value Reference Range Comments PROTIME (BEAKER) (test hadg=435) 23.4 seconds 11.7-14.7 INR (BEAKER) (test sdzy=190) 2.1 <=5.9 RECOMMENDED COUMADIN/WARFARIN INR THERAPY RANGESSTANDARD DOSE: 2.0 - 3.0 Includes: PROPHYLAXIS forvenous thrombosis, systemic embolization; TREATMENT for venous thrombosis and/or pulmonary embolus.HIGH RISK: Target INR is 2.5-3.5 for patients with mechanical heart valves.CBC W/PLT COUNT & AUTO [id number] 10:56:00 Test Item Value Reference Range Comments WHITE BLOOD CELL COUNT (BEAKER) (test cdfc=092) 4.4 K/ L 3.5-10.5 RED BLOOD CELL COUNT (BEAKER) (test qvyd=102) 2.48 M/ L 4.63-6.08 HEMOGLOBIN (BEAKER) (test edem=922) 7.8 GM/DL 13.7-17.5 HEMATOCRIT (BEAKER) (test xjtg=882) 22.7 % 40.1-51.0 MEAN CORPUSCULAR VOLUME (BEAKER) (test pxlc=401) 91.5 fL 79.0-92.2 MEAN CORPUSCULAR HEMOGLOBIN (BEAKER) (test 31.5 pg 25.7-32.2 yljm=295) MEAN CORPUSCULAR HEMOGLOBIN CONC (BEAKER) (test 34.4 GM/DL 32.3-36.5 voft=152) RED CELL DISTRIBUTION WIDTH (BEAKER) (test 18.6 % 11.6-14.4 utuv=723) PLATELET COUNT (BEAKER) (test rqcs=266) 60 K/CU MM 150-450 MEAN PLATELET VOLUME (BEAKER) (test ibro=799) 8.8 fL 9.4-12.4 NUCLEATED RED BLOOD CELLS (BEAKER) (test 0 /100 WBC 0-0 cfqd=833) NEUTROPHILS RELATIVE PERCENT (BEAKER) (test 61 % halj=245) LYMPHOCYTES RELATIVE PERCENT (BEAKER) (test 9 % jkbm=791) MONOCYTES RELATIVE PERCENT (BEAKER) (test 21 % wksl=558) EOSINOPHILS RELATIVE PERCENT (BEAKER) (test 8 % dhta=598) BASOPHILS RELATIVE PERCENT (BEAKER) (test 1 % lolx=295) NEUTROPHILS ABSOLUTE COUNT (BEAKER) (test 2.68 K/ L 1.78-5.38 obsh=976) LYMPHOCYTES ABSOLUTE COUNT (BEAKER) (test 0.38 K/ L 1.32-3.57 hiot=143) MONOCYTES ABSOLUTE COUNT (BEAKER) (test nkmk=577) 0.94 K/ L 0.30-0.82 EOSINOPHILS ABSOLUTE COUNT (BEAKER) (test 0.33 K/ L 0.04-0.54 xvoi=581) BASOPHILS ABSOLUTE COUNT (BEAKER) (test nugo=552) 0.02 K/ L 0.01-0.08 IMMATURE GRANULOCYTES-RELATIVE PERCENT (BEAKER) 1 % 0-1 (test brjy=4458) URINALYSIS W/ [id number] 06:18:00 Test Item Value Reference Range Comments COLOR (BEAKER) (test emge=883) Dark Yellow CLARITY (BEAKER) (test lhkm=752) Clear SPECIFIC GRAVITY UA (BEAKER) (test ewjt=891) 1.008 1.001-1.035 PH UA (BEAKER) (test osev=080) 6.0 5.0-8.0 PROTEIN UA (BEAKER) (test etvu=912) Negative Negative GLUCOSE UA (BEAKER) (test ekkv=130) Negative Negative KETONES UA (BEAKER) (test nliw=141) Negative Negative BILIRUBIN UA (BEAKER) (test ozgx=085) Positive Negative BLOOD UA (BEAKER) (test kvzq=502) Moderate Negative NITRITE UA (BEAKER) (test hhck=103) Negative Negative LEUKOCYTE ESTERASE UA (BEAKER) (test bbit=160) Negative Negative UROBILINOGEN UA (BEAKER) (test jufv=073) 0.2 mg/dL 0.2-1.0 RBC UA (BEAKER) (test teec=316) 80 /HPF WBC UA (BEAKER) (test vihd=770) 10 /HPF HYALINE CASTS (BEAKER) (test qdsf=510) 5 /LPF AMORPHOUS CRYSTALS (BEAKER) (test rdfv=2488) Rare SOURCE(BEAKER) (test poie=4122) CBC W/PLT COUNT & AUTO [id number] 00:00:00 Test Item Value Reference Range Comments WHITE BLOOD CELL COUNT (BEAKER) (test ajjz=973) 3.7 K/ L 3.5-10.5 RED BLOOD CELL COUNT (BEAKER) (test mcvp=226) 2.20 M/ L 4.63-6.08 HEMOGLOBIN (BEAKER) (test ehwb=314) 7.0 GM/DL 13.7-17.5 HEMATOCRIT (BEAKER) (test oybv=134) 20.2 % 40.1-51.0 MEAN CORPUSCULAR VOLUME (BEAKER) (test geyk=728) 91.8 fL 79.0-92.2 MEAN CORPUSCULAR HEMOGLOBIN (BEAKER) (test 31.8 pg 25.7-32.2 vlzc=031) MEAN CORPUSCULAR HEMOGLOBIN CONC (BEAKER) (test 34.7 GM/DL 32.3-36.5 sycs=820) RED CELL DISTRIBUTION WIDTH (BEAKER) (test 19.3 % 11.6-14.4 bfjy=391) PLATELET COUNT (BEAKER) (test zxnh=459) 63 K/CU MM 150-450 MEAN PLATELET VOLUME (BEAKER) (test irjn=346) 9.1 fL 9.4-12.4 NUCLEATED RED BLOOD CELLS (BEAKER) (test 0 /100 WBC 0-0 soxw=403) NEUTROPHILS RELATIVE PERCENT (BEAKER) (test 62 % fcwt=269) LYMPHOCYTES RELATIVE PERCENT (BEAKER) (test 11 % wxgv=862) MONOCYTES RELATIVE PERCENT (BEAKER) (test 19 % bzxa=699) EOSINOPHILS RELATIVE PERCENT (BEAKER) (test 7 % oxyw=942) BASOPHILS RELATIVE PERCENT (BEAKER) (test 1 % eqmo=697) NEUTROPHILS ABSOLUTE COUNT (BEAKER) (test 2.29 K/ L 1.78-5.38 nrvc=076) LYMPHOCYTES ABSOLUTE COUNT (BEAKER) (test 0.39 K/ L 1.32-3.57 whun=101) MONOCYTES ABSOLUTE COUNT (BEAKER) (test qwhi=865) 0.71 K/ L 0.30-0.82 EOSINOPHILS ABSOLUTE COUNT (BEAKER) (test 0.27 K/ L 0.04-0.54 kdmx=263) BASOPHILS ABSOLUTE COUNT (BEAKER) (test hhbv=088) 0.02 K/ L 0.01-0.08 IMMATURE GRANULOCYTES-RELATIVE PERCENT (BEAKER) 1 % 0-1 (test uklq=8286) PROTHROMBIN [id number] 22:52:00 Test Item Value Reference Range Comments PROTIME (BEAKER) (test afyl=503) 25.6 seconds 11.7-14.7 INR (BEAKER) (test yfav=322) 2.3 <=5.9 RECOMMENDED COUMADIN/WARFARIN INR THERAPY RANGESSTANDARD DOSE: 2.0 - 3.0 Includes: PROPHYLAXIS forvenous thrombosis, systemic embolization; TREATMENT for venous thrombosis and/or pulmonary embolus.HIGH RISK: Target INR is 2.5-3.5 for patients with mechanical heart valves.[id number] 22:52:00 Test Item Value Reference Range Comments MAGNESIUM (BEAKER) (test uvpi=614) 1.3 mg/dL 1.6-2.6 BASIC METABOLIC [id number] 22:52:00 Test Item Value Reference Range Comments SODIUM (BEAKER) (test 124 meq/L 136-145 hpkq=080) POTASSIUM (BEAKER) (test 4.1 meq/L 3.5-5.1 myco=562) CHLORIDE (BEAKER) (test 99 meq/L 98-107 mwzc=280) CO2 (BEAKER) (test 18 meq/L 22-29 ugxj=811) BLOOD UREA NITROGEN 16 mg/dL 7-21 (BEAKER) (test zfjx=472) CREATININE (BEAKER) (test 0.97 mg/dL 0.57-1.25 thnk=707) GLUCOSE RANDOM (BEAKER) 99 mg/dL 70-105 (test ukzl=075) CALCIUM (BEAKER) (test 8.7 mg/dL 8.4-10.2 ygyz=072) EGFR (BEAKER) (test 81 mL/min/1.73 sq m ESTIMATED GFR IS NOT gjrt=3169) ACCURATE CREATININE CLEARANCE IN PREDICTING GLOMERULAR FILTRATION RATE. ESTIMATED GFR IS NOT APPLICABLE FOR DIALYSIS PATIENTS. Specimen markedly ictericHEPATIC FUNCTION [id number] 22:52:00 Test Item Value Reference Range Comments TOTAL PROTEIN (BEAKER) (test abui=632) 5.3 gm/dL 6.0-8.3 ALBUMIN (BEAKER) (test qmyg=8326) 2.8 g/dL 3.5-5.0 BILIRUBIN TOTAL (BEAKER) (test lusl=927) 12.7 mg/dL 0.2-1.2 BILIRUBIN DIRECT (BEAKER) (test wwbp=370) 7.6 mg/dL 0.1-0.5 ALKALINE PHOSPHATASE (BEAKER) (test xmoh=667) 93 U/L 40-150 AST (SGOT) (BEAKER) (test yhxi=309) 21 U/L 5-34 ALT (SGPT) (BEAKER) (test rdtr=026) 9 U/L 6-55 Specimen markedly ictericALPHA FETOPROTEIN (AFP), TUMOR [id number] 16:39: 00 Test Item Value Reference Range Comments ALPHA-FETOPROTEIN (BEAKER) (test xfkt=5000) 2.5 ng/mL <10.0 BASIC METABOLIC [id number] 15:53:00 Test Item Value Reference Range Comments SODIUM (BEAKER) (test 126 meq/L 136-145 neuy=350) POTASSIUM (BEAKER) (test 5.1 meq/L 3.5-5.1 gshj=247) CHLORIDE (BEAKER) (test 101 meq/L 98-107 clyv=716) CO2 (BEAKER) (test 19 meq/L 22-29 pwug=900) BLOOD UREA NITROGEN 14 mg/dL 7-21 (BEAKER) (test txgh=794) CREATININE (BEAKER) (test 1.01 mg/dL 0.57-1.25 zzch=765) GLUCOSE RANDOM (BEAKER) 104 mg/dL 70-105 (test fbku=953) CALCIUM (BEAKER) (test 9.0 mg/dL 8.4-10.2 nrhc=723) EGFR (BEAKER) (test 78 mL/min/1.73 sq m ESTIMATED GFR IS NOT hupx=2424) ACCURATE CREATININE CLEARANCE IN PREDICTING GLOMERULAR FILTRATION RATE. ESTIMATED GFR IS NOT APPLICABLE FOR DIALYSIS PATIENTS. Specimen moderately ictericHEPATIC FUNCTION [id number] 15:53:00 Test Item Value Reference Range Comments TOTAL PROTEIN (BEAKER) (test fzug=712) 6.1 gm/dL 6.0-8.3 ALBUMIN (BEAKER) (test yect=4792) 2.6 g/dL 3.5-5.0 BILIRUBIN TOTAL (BEAKER) (test vcje=805) 10.4 mg/dL 0.2-1.2 BILIRUBIN DIRECT (BEAKER) (test pkui=784) 7.5 mg/dL 0.1-0.5 ALKALINE PHOSPHATASE (BEAKER) (test tkfv=502) 124 U/L 40-150 AST (SGOT) (BEAKER) (test vixq=531) 29 U/L 5-34 ALT (SGPT) (BEAKER) (test babt=511) 12 U/L 6-55 Specimen moderately ictericGAMMA GLUTAMYL TRANSFERASE (GGT)[id number] 15:53:00 Test Item Value Reference Range Comments GAMMA GLUTAMYL TRANSFERASE (BEAKER) (test zymm=248) 17 U/L 9-64 Specimen moderately ictericPROTHROMBIN TIME/[id number] 15:40:00 Test Item Value Reference Range Comments PROTIME (BEAKER) (test jizj=408) 22.6 seconds 11.7-14.7 INR (BEAKER) (test mhyo=858) 2.0 <=5.9 RECOMMENDED COUMADIN/WARFARIN INR THERAPY RANGESSTANDARD DOSE: 2.0 - 3.0 Includes: PROPHYLAXIS forvenous thrombosis, systemic embolization; TREATMENT for venous thrombosis and/or pulmonary embolus.HIGH RISK: Target INR is 2.5-3.5 for patients with mechanical heart valves.CBC W/PLT COUNT & AUTO [id number] 15:38:00 Test Item Value Reference Range Comments WHITE BLOOD CELL COUNT (BEAKER) (test oeqi=482) 7.3 K/ L 3.5-10.5 RED BLOOD CELL COUNT (BEAKER) (test mwlm=364) 2.78 M/ L 4.63-6.08 HEMOGLOBIN (BEAKER) (test wvlj=685) 9.1 GM/DL 13.7-17.5 HEMATOCRIT (BEAKER) (test yefx=621) 27.3 % 40.1-51.0 MEAN CORPUSCULAR VOLUME (BEAKER) (test rpra=531) 98.2 fL 79.0-92.2 MEAN CORPUSCULAR HEMOGLOBIN (BEAKER) (test 32.7 pg 25.7-32.2 uxbo=154) MEAN CORPUSCULAR HEMOGLOBIN CONC (BEAKER) (test 33.3 GM/DL 32.3-36.5 kghz=376) RED CELL DISTRIBUTION WIDTH (BEAKER) (test 16.4 % 11.6-14.4 xzkt=712) PLATELET COUNT (BEAKER) (test kfvx=301) 71 K/CU MM 150-450 MEAN PLATELET VOLUME (BEAKER) (test mqlc=609) 9.1 fL 9.4-12.4 NUCLEATED RED BLOOD CELLS (BEAKER) (test 0 /100 WBC 0-0 cevt=346) NEUTROPHILS RELATIVE PERCENT (BEAKER) (test 71 % wmjf=091) LYMPHOCYTES RELATIVE PERCENT (BEAKER) (test 8 % qinh=072) MONOCYTES RELATIVE PERCENT (BEAKER) (test 15 % zbzh=280) EOSINOPHILS RELATIVE PERCENT (BEAKER) (test 5 % nnmj=662) BASOPHILS RELATIVE PERCENT (BEAKER) (test 0 % kqmj=438) NEUTROPHILS ABSOLUTE COUNT (BEAKER) (test 5.13 K/ L 1.78-5.38 xxqk=555) LYMPHOCYTES ABSOLUTE COUNT (BEAKER) (test 0.59 K/ L 1.32-3.57 lvbq=934) MONOCYTES ABSOLUTE COUNT (BEAKER) (test iuou=633) 1.06 K/ L 0.30-0.82 EOSINOPHILS ABSOLUTE COUNT (BEAKER) (test 0.33 K/ L 0.04-0.54 dlhn=054) BASOPHILS ABSOLUTE COUNT (BEAKER) (test ixzb=265) 0.03 K/ L 0.01-0.08 IMMATURE GRANULOCYTES-RELATIVE PERCENT (BEAKER) 2 % 0-1 (test wluo=7768) FUNGUS CULTURE + [id number] 07:22:00 Test Item Value Reference Range Comments CULTURE (BEAKER) (test No fungus isolated in 28 days xrqo=4603) FUNGUS SMEAR (BEAKER) (test No fungi seen iuuv=6221) HISTOPLASMA ANTIGEN, [id number] 08:01:00 Test Item Value Reference Range Comments SCAN RESULT (test tppv=[id number]) TISSUE [id number] 10:58:00 Test Item Value Reference Range Comments LAB AP CPT CODE (BEAKER) (test bhbr=4431) [id number] BLOOD [id number] 16:15:00 Test Item Value Reference Range Comments CULTURE (BEAKER) (test segu=9856) No growth in 5 days BLOOD [id number] 16:15:00 Test Item Value Reference Range Comments CULTURE (BEAKER) (test bkfg=5331) No growth in 5 days [id number] 06:54:00 Test Item Value Reference Range Comments PHOSPHORUS (BEAKER) (test kfjl=266) 3.3 mg/dL 2.3-4.7 [id number] 06:54:00 Test Item Value Reference Range Comments MAGNESIUM (BEAKER) (test dwnu=954) 1.2 mg/dL 1.6-2.6 BASIC METABOLIC [id number] 06:54:00 Test Item Value Reference Range Comments SODIUM (BEAKER) (test 133 meq/L 136-145 zcyd=904) POTASSIUM (BEAKER) (test 3.6 meq/L 3.5-5.1 aavn=265) CHLORIDE (BEAKER) (test 108 meq/L 98-107 gfac=346) CO2 (BEAKER) (test 17 meq/L 22-29 tlwg=708) BLOOD UREA NITROGEN 13 mg/dL 7-21 (BEAKER) (test eceq=824) CREATININE (BEAKER) (test 1.16 mg/dL 0.57-1.25 cpig=952) GLUCOSE RANDOM (BEAKER) 82 mg/dL 70-105 (test tnoj=395) CALCIUM (BEAKER) (test 8.0 mg/dL 8.4-10.2 vnmm=526) EGFR (BEAKER) (test 66 mL/min/1.73 sq m ESTIMATED GFR IS NOT hqtz=6255) ACCURATE CREATININE CLEARANCE IN PREDICTING GLOMERULAR FILTRATION RATE. ESTIMATED GFR IS NOT APPLICABLE FOR DIALYSIS PATIENTS. Specimen moderately ictericHEPATIC FUNCTION [id number] 06:54:00 Test Item Value Reference Range Comments TOTAL PROTEIN (BEAKER) (test opuv=557) 5.7 gm/dL 6.0-8.3 ALBUMIN (BEAKER) (test slym=3111) 3.1 g/dL 3.5-5.0 BILIRUBIN TOTAL (BEAKER) (test oxpk=092) 5.2 mg/dL 0.2-1.2 BILIRUBIN DIRECT (BEAKER) (test dmou=244) 2.6 mg/dL 0.1-0.5 ALKALINE PHOSPHATASE (BEAKER) (test vcww=704) 55 U/L 40-150 AST (SGOT) (BEAKER) (test yhmk=807) 32 U/L 5-34 ALT (SGPT) (BEAKER) (test ttfs=154) 9 U/L 6-55 Specimen moderately ictericCALCIUM, [id number] 06:30:00 Test Item Value Reference Range Comments CALCIUM IONIZED (BEAKER) (test tvdw=733) 1.00 mmol/L 1.12-1.27 PH, BLOOD (BEAKER) (test oejh=9850) 7.52 CBC W/PLT COUNT & AUTO [id number] 06:17:00 Test Item Value Reference Range Comments WHITE BLOOD CELL COUNT (BEAKER) (test kvqu=799) 4.7 K/ L 4.0-10.0 RED BLOOD CELL COUNT (BEAKER) (test czij=573) 2.05 M/ L 4.20-5.80 HEMOGLOBIN (BEAKER) (test swji=984) 7.1 GM/DL 13.0-16.8 HEMATOCRIT (BEAKER) (test dwqy=717) 21.1 % 40.0-50.0 MEAN CORPUSCULAR VOLUME (BEAKER) (test lccw=324) 103.0 fL 82.0-98.0 MEAN CORPUSCULAR HEMOGLOBIN (BEAKER) (test 34.8 pg 27.0-33.0 bjue=279) MEAN CORPUSCULAR HEMOGLOBIN CONC (BEAKER) (test 33.8 GM/DL 32.0-36.0 kmku=526) RED CELL DISTRIBUTION WIDTH (BEAKER) (test 13.9 % 10.3-14.2 curg=251) PLATELET COUNT (BEAKER) (test flvz=558) 71 K/CU MM 150-430 MEAN PLATELET VOLUME (BEAKER) (test edwt=717) 6.6 fL 6.5-10.5 NUCLEATED RED BLOOD CELLS (BEAKER) (test 0 /100 WBC 0-0 uykt=152) NEUTROPHILS RELATIVE PERCENT (BEAKER) (test 68 % sqxb=903) LYMPHOCYTES RELATIVE PERCENT (BEAKER) (test 16 % opry=422) MONOCYTES RELATIVE PERCENT (BEAKER) (test 12 % ysqe=995) EOSINOPHILS RELATIVE PERCENT (BEAKER) (test 4 % nabp=557) BASOPHILS RELATIVE PERCENT (BEAKER) (test 1 % clgf=809) NEUTROPHILS ABSOLUTE COUNT (BEAKER) (test 3.21 K/ L 1.80-8.00 wqmh=235) LYMPHOCYTES ABSOLUTE COUNT (BEAKER) (test 0.75 K/ L 1.48-4.50 zuwa=673) MONOCYTES ABSOLUTE COUNT (BEAKER) (test mtkf=393) 0.57 K/ L 0.00-1.30 EOSINOPHILS ABSOLUTE COUNT (BEAKER) (test 0.19 K/ L 0.00-0.50 lyqs=309) BASOPHILS ABSOLUTE COUNT (BEAKER) (test rmdt=436) 0.03 K/ L 0.00-0.20 0.00PROTHROMBIN [id number] 05:56:00 Test Item Value Reference Range Comments PROTIME (BEAKER) (test rino=511) 26.4 seconds 11.7-14.7 INR (BEAKER) (test dhck=114) 2.4 <=5.9 RECOMMENDED COUMADIN/WARFARIN INR THERAPY RANGESSTANDARD DOSE: 2.0 - 3.0 Includes: PROPHYLAXIS forvenous thrombosis, systemic embolization; TREATMENT for venous thrombosis and/or pulmonary embolus.HIGH RISK: Target INR is 2.5-3.5 for patients with mechanical heart valves.BASIC METABOLIC [id number] 04:44: 00 Test Item Value Reference Range Comments SODIUM (BEAKER) (test 134 meq/L 136-145 ocwl=157) POTASSIUM (BEAKER) (test 3.6 meq/L 3.5-5.1 plho=829) CHLORIDE (BEAKER) (test 108 meq/L 98-107 eiob=501) CO2 (BEAKER) (test 19 meq/L 22-29 qoni=423) BLOOD UREA NITROGEN 12 mg/dL 7-21 (BEAKER) (test nlif=935) CREATININE (BEAKER) (test 1.32 mg/dL 0.57-1.25 fhpe=300) GLUCOSE RANDOM (BEAKER) 82 mg/dL 70-105 (test kidt=270) CALCIUM (BEAKER) (test 7.9 mg/dL 8.4-10.2 pjfq=721) EGFR (BEAKER) (test 57 mL/min/1.73 sq m ESTIMATED GFR IS NOT qmho=3533) ACCURATE CREATININE CLEARANCE IN PREDICTING GLOMERULAR FILTRATION RATE. ESTIMATED GFR IS NOT APPLICABLE FOR DIALYSIS PATIENTS. Specimen moderately ictericHEPATIC FUNCTION [id number] 04:42:00 Test Item Value Reference Range Comments TOTAL PROTEIN (BEAKER) (test klps=567) 5.8 gm/dL 6.0-8.3 ALBUMIN (BEAKER) (test hyze=5410) 3.1 g/dL 3.5-5.0 BILIRUBIN TOTAL (BEAKER) (test scce=004) 5.1 mg/dL 0.2-1.2 BILIRUBIN DIRECT (BEAKER) (test ismd=778) 2.7 mg/dL 0.1-0.5 ALKALINE PHOSPHATASE (BEAKER) (test fazk=171) 51 U/L 40-150 AST (SGOT) (BEAKER) (test cdce=634) 27 U/L 5-34 ALT (SGPT) (BEAKER) (test xten=812) 7 U/L 6-55 Specimen moderately ictericCBC W/PLT COUNT & AUTO [id number] 04: 35:00 Test Item Value Reference Range Comments WHITE BLOOD CELL COUNT (BEAKER) (test urnh=118) 4.6 K/ L 4.0-10.0 RED BLOOD CELL COUNT (BEAKER) (test aspu=861) 2.06 M/ L 4.20-5.80 HEMOGLOBIN (BEAKER) (test tdhl=388) 7.2 GM/DL 13.0-16.8 HEMATOCRIT (BEAKER) (test fteh=611) 21.5 % 40.0-50.0 MEAN CORPUSCULAR VOLUME (BEAKER) (test qmen=413) 104.0 fL 82.0-98.0 MEAN CORPUSCULAR HEMOGLOBIN (BEAKER) (test 35.0 pg 27.0-33.0 viwl=234) MEAN CORPUSCULAR HEMOGLOBIN CONC (BEAKER) (test 33.6 GM/DL 32.0-36.0 fvqg=429) RED CELL DISTRIBUTION WIDTH (BEAKER) (test 13.4 % 10.3-14.2 omwi=234) PLATELET COUNT (BEAKER) (test bydl=104) 76 K/CU MM 150-430 MEAN PLATELET VOLUME (BEAKER) (test ircy=742) 6.5 fL 6.5-10.5 NUCLEATED RED BLOOD CELLS (BEAKER) (test 0 /100 WBC 0-0 eftk=372) NEUTROPHILS RELATIVE PERCENT (BEAKER) (test 64 % mdui=268) LYMPHOCYTES RELATIVE PERCENT (BEAKER) (test 16 % oosq=708) MONOCYTES RELATIVE PERCENT (BEAKER) (test 16 % xqmy=936) EOSINOPHILS RELATIVE PERCENT (BEAKER) (test 4 % gauo=664) BASOPHILS RELATIVE PERCENT (BEAKER) (test 1 % wjjr=562) NEUTROPHILS ABSOLUTE COUNT (BEAKER) (test 2.89 K/ L 1.80-8.00 sfms=777) LYMPHOCYTES ABSOLUTE COUNT (BEAKER) (test 0.72 K/ L 1.48-4.50 ypqx=760) MONOCYTES ABSOLUTE COUNT (BEAKER) (test tfjt=141) 0.71 K/ L 0.00-1.30 EOSINOPHILS ABSOLUTE COUNT (BEAKER) (test 0.20 K/ L 0.00-0.50 bnki=736) BASOPHILS ABSOLUTE COUNT (BEAKER) (test oqqr=085) 0.03 K/ L 0.00-0.20 0.00PROTHROMBIN [id number] 04:33:00 Test Item Value Reference Range Comments PROTIME (BEAKER) (test cgcm=750) 30.2 seconds 11.7-14.7 INR (BEAKER) (test lbtf=717) 2.9 <=5.9 RECOMMENDED COUMADIN/WARFARIN INR THERAPY RANGESSTANDARD DOSE: 2.0 - 3.0 Includes: PROPHYLAXIS forvenous thrombosis, systemic embolization; TREATMENT for venous thrombosis and/or pulmonary embolus.HIGH RISK: Target INR is 2.5-3.5 for patients with mechanical heart valves.VANCOMYCIN LEVEL, [id number] 17: 04:00 Test Item Value Reference Range Comments VANCOMYCIN TROUGH (BEAKER) (test dhbt=520) 12.2 ug/mL 10.0-20.0 URINE [id number] 14:25:00 Test Item Value Reference Range Comments CULTURE (BEAKER) (test oodc=8673) No growth TSH/FREE T4 IF [id number] 14:22:00 Test Item Value Reference Range Comments THYROID STIMULATING HORMONE (BEAKER) (test 3.53 uIU/mL 0.35-4.94 xhsh=147) URINE [id number] 11:43:00 Test Item Value Reference Range Comments CULTURE (BEAKER) (test gpgd=6199) No growth CBC W/PLT COUNT & AUTO [id number] 07:55:00 Test Item Value Reference Range Comments WHITE BLOOD CELL COUNT (BEAKER) (test mwwb=285) 4.5 K/ L 4.0-10.0 RED BLOOD CELL COUNT (BEAKER) (test rtlf=527) 2.06 M/ L 4.20-5.80 HEMOGLOBIN (BEAKER) (test aked=459) 7.1 GM/DL 13.0-16.8 HEMATOCRIT (BEAKER) (test rpjp=951) 21.5 % 40.0-50.0 MEAN CORPUSCULAR VOLUME (BEAKER) (test kika=428) 104.0 fL 82.0-98.0 MEAN CORPUSCULAR HEMOGLOBIN (BEAKER) (test 34.5 pg 27.0-33.0 maha=348) MEAN CORPUSCULAR HEMOGLOBIN CONC (BEAKER) (test 33.1 GM/DL 32.0-36.0 ftpt=024) RED CELL DISTRIBUTION WIDTH (BEAKER) (test 13.4 % 10.3-14.2 asax=484) PLATELET COUNT (BEAKER) (test vqko=479) 79 K/CU MM 150-430 MEAN PLATELET VOLUME (BEAKER) (test srnl=219) 6.8 fL 6.5-10.5 NUCLEATED RED BLOOD CELLS (BEAKER) (test 0 /100 WBC 0-0 lyjr=440) NEUTROPHILS RELATIVE PERCENT (BEAKER) (test 64 % yztx=397) LYMPHOCYTES RELATIVE PERCENT (BEAKER) (test 16 % wopz=676) MONOCYTES RELATIVE PERCENT (BEAKER) (test 15 % sthi=046) EOSINOPHILS RELATIVE PERCENT (BEAKER) (test 5 % ltlj=568) BASOPHILS RELATIVE PERCENT (BEAKER) (test 0 % yujc=870) NEUTROPHILS ABSOLUTE COUNT (BEAKER) (test 2.88 K/ L 1.80-8.00 hjue=556) LYMPHOCYTES ABSOLUTE COUNT (BEAKER) (test 0.73 K/ L 1.48-4.50 lhfw=450) MONOCYTES ABSOLUTE COUNT (BEAKER) (test otke=383) 0.68 K/ L 0.00-1.30 EOSINOPHILS ABSOLUTE COUNT (BEAKER) (test 0.23 K/ L 0.00-0.50 skby=200) BASOPHILS ABSOLUTE COUNT (BEAKER) (test lxsx=957) 0.02 K/ L 0.00-0.20 0.00BASI METABOLIC [id number] 05:58:00 Test Item Value Reference Range Comments SODIUM (BEAKER) (test 137 meq/L 136-145 xhvx=683) POTASSIUM (BEAKER) (test 3.7 meq/L 3.5-5.1 hwrd=815) CHLORIDE (BEAKER) (test 110 meq/L 98-107 auoy=401) CO2 (BEAKER) (test 19 meq/L 22-29 aogr=474) BLOOD UREA NITROGEN 12 mg/dL 7-21 (BEAKER) (test dclp=123) CREATININE (BEAKER) (test 1.29 mg/dL 0.57-1.25 chkv=323) GLUCOSE RANDOM (BEAKER) 80 mg/dL 70-105 (test ozlx=691) CALCIUM (BEAKER) (test 8.1 mg/dL 8.4-10.2 pfua=431) EGFR (BEAKER) (test 59 mL/min/1.73 sq m ESTIMATED GFR IS NOT jieu=4964) ACCURATE CREATININE CLEARANCE IN PREDICTING GLOMERULAR FILTRATION RATE. ESTIMATED GFR IS NOT APPLICABLE FOR DIALYSIS PATIENTS. Specimen moderately ictericHEPATIC FUNCTION [id number] 05:58:00 Test Item Value Reference Range Comments TOTAL PROTEIN (BEAKER) (test dhcz=978) 5.9 gm/dL 6.0-8.3 ALBUMIN (BEAKER) (test lmmx=6321) 3.4 g/dL 3.5-5.0 BILIRUBIN TOTAL (BEAKER) (test xgsd=038) 5.6 mg/dL 0.2-1.2 BILIRUBIN DIRECT (BEAKER) (test hlts=345) 2.6 mg/dL 0.1-0.5 ALKALINE PHOSPHATASE (BEAKER) (test kkae=201) 50 U/L 40-150 AST (SGOT) (BEAKER) (test srht=315) 30 U/L 5-34 ALT (SGPT) (BEAKER) (test vefc=012) 9 U/L 6-55 Specimen moderately ictericPROTHROMBIN [id number] 05:31:00 Test Item Value Reference Range Comments PROTIME (BEAKER) (test uvfx=717) 29.0 seconds 11.7-14.7 INR (BEAKER) (test nubv=715) 2.7 <=5.9 RECOMMENDED COUMADIN/WARFARIN INR THERAPY RANGESSTANDARD DOSE: 2.0 - 3.0 Includes: PROPHYLAXIS forvenous thrombosis, systemic embolization; TREATMENT for venous thrombosis and/or pulmonary embolus.HIGH RISK: Target INR is 2.5-3.5 for patients with mechanical heart valves.ANAEROBIC [id number] 05:15:00 Test Item Value Reference Range Comments CULTURE (BEAKER) (test pyvs=3029) No anaerobes isolated BLOOD [id number] 00:00:00 Test Item Value Reference Range Comments CULTURE (BEAKER) (test qabu=3016) No growth in 5 days BLOOD [id number] 00:00:00 Test Item Value Reference Range Comments CULTURE (BEAKER) (test iywi=2251) No growth in 5 days URINALYSIS W/ REFLEX URINE [id number] 08:28:00 Test Item Value Reference Range Comments COLOR (BEAKER) (test ipzi=847) Yellow CLARITY (BEAKER) (test smkd=190) Clear SPECIFIC GRAVITY UA (BEAKER) (test qjeu=122) 1.006 1.001-1.035 PH UA (BEAKER) (test pjyy=004) 6.5 5.0-8.0 PROTEIN UA (BEAKER) (test znvs=693) Negative Negative GLUCOSE UA (BEAKER) (test gztd=572) Negative Negative KETONES UA (BEAKER) (test disn=012) Negative Negative BILIRUBIN UA (BEAKER) (test mhnv=454) Negative Negative BLOOD UA (BEAKER) (test vxzy=273) Negative Negative NITRITE UA (BEAKER) (test fopp=847) Negative Negative LEUKOCYTE ESTERASE UA (BEAKER) (test wpzn=307) Small Negative UROBILINOGEN UA (BEAKER) (test ciih=771) 0.2 mg/dL 0.2-1.0 RBC UA (BEAKER) (test tdyh=583) 1 /HPF WBC UA (BEAKER) (test ggiv=142) 6 /HPF BACTERIA (BEAKER) (test jbqg=883) Rare SOURCE(BEAKER) (test imfb=9869) CBC W/PLT COUNT & AUTO [id number] 07:21:00 Test Item Value Reference Range Comments WHITE BLOOD CELL COUNT (BEAKER) (test poew=764) 5.9 K/ L 4.0-10.0 RED BLOOD CELL COUNT (BEAKER) (test whxq=855) 2.12 M/ L 4.20-5.80 HEMOGLOBIN (BEAKER) (test zyju=233) 7.3 GM/DL 13.0-16.8 HEMATOCRIT (BEAKER) (test jepp=305) 22.2 % 40.0-50.0 MEAN CORPUSCULAR VOLUME (BEAKER) (test wgpj=850) 105.0 fL 82.0-98.0 MEAN CORPUSCULAR HEMOGLOBIN (BEAKER) (test 34.2 pg 27.0-33.0 ztki=492) MEAN CORPUSCULAR HEMOGLOBIN CONC (BEAKER) (test 32.7 GM/DL 32.0-36.0 hxfv=346) RED CELL DISTRIBUTION WIDTH (BEAKER) (test 13.1 % 10.3-14.2 eczh=056) PLATELET COUNT (BEAKER) (test mkea=613) 80 K/CU MM 150-430 MEAN PLATELET VOLUME (BEAKER) (test wnac=870) 6.5 fL 6.5-10.5 NUCLEATED RED BLOOD CELLS (BEAKER) (test 0 /100 WBC 0-0 hnyf=978) NEUTROPHILS RELATIVE PERCENT (BEAKER) (test 67 % mbvb=788) LYMPHOCYTES RELATIVE PERCENT (BEAKER) (test 14 % ratu=671) MONOCYTES RELATIVE PERCENT (BEAKER) (test 14 % chuo=517) EOSINOPHILS RELATIVE PERCENT (BEAKER) (test 4 % xlww=647) BASOPHILS RELATIVE PERCENT (BEAKER) (test 0 % odev=468) NEUTROPHILS ABSOLUTE COUNT (BEAKER) (test 3.97 K/ L 1.80-8.00 ffrp=745) LYMPHOCYTES ABSOLUTE COUNT (BEAKER) (test 0.85 K/ L 1.48-4.50 novk=438) MONOCYTES ABSOLUTE COUNT (BEAKER) (test bqou=344) 0.81 K/ L 0.00-1.30 EOSINOPHILS ABSOLUTE COUNT (BEAKER) (test 0.25 K/ L 0.00-0.50 bult=721) BASOPHILS ABSOLUTE COUNT (BEAKER) (test qmug=010) 0.03 K/ L 0.00-0.20 [id number] 06:35:00 Test Item Value Reference Range Comments PHOSPHORUS (BEAKER) (test bfqk=142) 3.5 mg/dL 2.3-4.7 [id number] 06:35:00 Test Item Value Reference Range Comments MAGNESIUM (BEAKER) (test zkpu=895) 1.7 mg/dL 1.6-2.6 BASIC METABOLIC [id number] 06:35:00 Test Item Value Reference Range Comments SODIUM (BEAKER) (test 137 meq/L 136-145 oeyf=108) POTASSIUM (BEAKER) (test 4.0 meq/L 3.5-5.1 fpww=086) CHLORIDE (BEAKER) (test 109 meq/L 98-107 cbec=192) CO2 (BEAKER) (test 20 meq/L 22-29 utts=997) BLOOD UREA NITROGEN 13 mg/dL 7-21 (BEAKER) (test uxfs=200) CREATININE (BEAKER) (test 1.56 mg/dL 0.57-1.25 jdgt=597) GLUCOSE RANDOM (BEAKER) 85 mg/dL 70-105 (test vktv=775) CALCIUM (BEAKER) (test 8.4 mg/dL 8.4-10.2 zell=585) EGFR (BEAKER) (test 47 mL/min/1.73 sq m ESTIMATED GFR IS NOT yzcm=2748) ACCURATE CREATININE CLEARANCE IN PREDICTING GLOMERULAR FILTRATION RATE. ESTIMATED GFR IS NOT APPLICABLE FOR DIALYSIS PATIENTS. Specimen moderately ictericHEPATIC FUNCTION [id number] 06:35:00 Test Item Value Reference Range Comments TOTAL PROTEIN (BEAKER) (test lrji=039) 6.5 gm/dL 6.0-8.3 ALBUMIN (BEAKER) (test pznt=5459) 3.8 g/dL 3.5-5.0 BILIRUBIN TOTAL (BEAKER) (test mkrq=629) 6.1 mg/dL 0.2-1.2 BILIRUBIN DIRECT (BEAKER) (test hgug=544) 2.9 mg/dL 0.1-0.5 ALKALINE PHOSPHATASE (BEAKER) (test lwam=789) 54 U/L 40-150 AST (SGOT) (BEAKER) (test rxnn=824) 28 U/L 5-34 ALT (SGPT) (BEAKER) (test ptuo=342) 7 U/L 6-55 Specimen moderately ictericPROTHROMBIN [id number] 06:06:00 Test Item Value Reference Range Comments PROTIME (BEAKER) (test ueec=328) 26.1 seconds 11.7-14.7 INR (BEAKER) (test juno=159) 2.4 <=5.9 RECOMMENDED COUMADIN/WARFARIN INR THERAPY RANGESSTANDARD DOSE: 2.0 - 3.0 Includes: PROPHYLAXIS forvenous thrombosis, systemic embolization; TREATMENT for venous thrombosis and/or pulmonary embolus.HIGH RISK: Target INR is 2.5-3.5 for patients with mechanical heart valves.CALCIUM, [id number] 06:06:00 Test Item Value Reference Range Comments CALCIUM IONIZED (BEAKER) (test gphj=033) 1.06 mmol/L 1.12-1.27 PH, BLOOD (BEAKER) (test yyuc=0520) 7.46 SURGICALLY OBTAINED CULTURE + GRAM [id number] 23:51:00 Test Item Value Reference Range Comments CULTURE (BEAKER) (test nrhg=1448) No growth GRAM STAIN RESULT (BEAKER) (test 1+ WBCs niur=4181) GRAM STAIN RESULT (BEAKER) (test No organisms seen mmms=23609) BODY FLUID CULTURE + GRAM [id number] 23:42:00 Test Item Value Reference Range Comments CULTURE (BEAKER) (test beln=2049) No growth GRAM STAIN RESULT (BEAKER) (test 1+ WBCs qrpl=0652) GRAM STAIN RESULT (BEAKER) (test No organisms seen byqh=51421) BODY FLUID CELL COUNT WITH [id number] 19:59:00 Test Item Value Reference Range Comments APPEARANCE FLUID (BEAKER) (test oyyo=799) Hazy Clear COLOR FLUID (BEAKER) (test iltu=738) Yellow Colorless, Straw RBC FLUID (BEAKER) (test bude=872) 2435 /cu mm <=1 ADJUSTED WBC FLUID (BEAKER) (test rhwu=4018) 441 /cu mm <=5 LINING CELLS (BEAKER) (test xmpz=1428) 9 /cu mm <=1 NEUTROPHILS FLUID (BEAKER) (test xgtp=5016) 16 % LYMPHS FLUID (BEAKER) (test jbwc=605) 10 % MONO/MACROPHAGE FLUID (BEAKER) (test fmyv=889) 74 % EOSINOPHILS FLUID (BEAKER) (test xevb=439) 0 % BASO FLUID (BEAKER) (test tkjc=568) 0 % CONTAINER BODY FLUID (BEAKER) (test topj=5326) EDTA Tube [id number] 11:01:00 Test Item Value Reference Range Comments PROCALCITONIN (BEAKER) (test dpta=0743) 0.25 ng/mL <0.05 SEPSIS RISK (ng/mL)Low: 0.05-0.50Intermediate: 0.51-2.00High: & gt;=2.01CBC W/PLT COUNT & AUTO [id number] 08:40:00 Test Item Value Reference Range Comments WHITE BLOOD CELL COUNT (BEAKER) (test llik=263) 6.3 K/ L 4.0-10.0 RED BLOOD CELL COUNT (BEAKER) (test phkq=128) 2.07 M/ L 4.20-5.80 HEMOGLOBIN (BEAKER) (test naye=608) 7.1 GM/DL 13.0-16.8 HEMATOCRIT (BEAKER) (test ahxy=521) 21.9 % 40.0-50.0 MEAN CORPUSCULAR VOLUME (BEAKER) (test sqad=008) 106.0 fL 82.0-98.0 MEAN CORPUSCULAR HEMOGLOBIN (BEAKER) (test 34.1 pg 27.0-33.0 vjdk=018) MEAN CORPUSCULAR HEMOGLOBIN CONC (BEAKER) (test 32.2 GM/DL 32.0-36.0 yafq=228) RED CELL DISTRIBUTION WIDTH (BEAKER) (test 13.1 % 10.3-14.2 uykm=815) PLATELET COUNT (BEAKER) (test nfev=550) 78 K/CU MM 150-430 MEAN PLATELET VOLUME (BEAKER) (test cupw=490) 6.6 fL 6.5-10.5 NUCLEATED RED BLOOD CELLS (BEAKER) (test 0 /100 WBC 0-0 fkle=399) NEUTROPHILS RELATIVE PERCENT (BEAKER) (test 73 % npyg=665) LYMPHOCYTES RELATIVE PERCENT (BEAKER) (test 10 % yjmn=688) MONOCYTES RELATIVE PERCENT (BEAKER) (test 13 % zezc=829) EOSINOPHILS RELATIVE PERCENT (BEAKER) (test 4 % perd=165) BASOPHILS RELATIVE PERCENT (BEAKER) (test 0 % tbdg=202) NEUTROPHILS ABSOLUTE COUNT (BEAKER) (test 4.60 K/ L 1.80-8.00 prie=436) LYMPHOCYTES ABSOLUTE COUNT (BEAKER) (test 0.64 K/ L 1.48-4.50 etne=945) MONOCYTES ABSOLUTE COUNT (BEAKER) (test ogqi=062) 0.81 K/ L 0.00-1.30 EOSINOPHILS ABSOLUTE COUNT (BEAKER) (test 0.23 K/ L 0.00-0.50 riuj=572) BASOPHILS ABSOLUTE COUNT (BEAKER) (test lvba=260) 0.01 K/ L 0.00-0.20 [id number] 06:50:00 Test Item Value Reference Range Comments PHOSPHORUS (BEAKER) (test evlp=997) 3.0 mg/dL 2.3-4.7 [id number] 06:50:00 Test Item Value Reference Range Comments MAGNESIUM (BEAKER) (test vgxk=241) 1.9 mg/dL 1.6-2.6 BASIC METABOLIC [id number] 06:50:00 Test Item Value Reference Range Comments SODIUM (BEAKER) (test 135 meq/L 136-145 eqtv=459) POTASSIUM (BEAKER) (test 4.2 meq/L 3.5-5.1 rqtq=729) CHLORIDE (BEAKER) (test 106 meq/L 98-107 jkwu=131) CO2 (BEAKER) (test 21 meq/L 22-29 eyqe=759) BLOOD UREA NITROGEN 19 mg/dL 7-21 (BEAKER) (test pgeb=253) CREATININE (BEAKER) (test 1.62 mg/dL 0.57-1.25 oyrj=222) GLUCOSE RANDOM (BEAKER) 98 mg/dL 70-105 (test zirp=035) CALCIUM (BEAKER) (test 8.6 mg/dL 8.4-10.2 zrdk=668) EGFR (BEAKER) (test 45 mL/min/1.73 sq m ESTIMATED GFR IS NOT pfha=3529) ACCURATE CREATININE CLEARANCE IN PREDICTING GLOMERULAR FILTRATION RATE. ESTIMATED GFR IS NOT APPLICABLE FOR DIALYSIS PATIENTS. Specimen moderately ictericHEPATIC FUNCTION [id number] 06:50:00 Test Item Value Reference Range Comments TOTAL PROTEIN (BEAKER) (test ejop=136) 6.3 gm/dL 6.0-8.3 ALBUMIN (BEAKER) (test vscy=7421) 3.7 g/dL 3.5-5.0 BILIRUBIN TOTAL (BEAKER) (test hdrb=983) 6.2 mg/dL 0.2-1.2 BILIRUBIN DIRECT (BEAKER) (test qsxh=389) 2.8 mg/dL 0.1-0.5 ALKALINE PHOSPHATASE (BEAKER) (test rerm=622) 54 U/L 40-150 AST (SGOT) (BEAKER) (test daas=250) 29 U/L 5-34 ALT (SGPT) (BEAKER) (test jlcp=381) 8 U/L 6-55 Specimen moderately ictericCALCIUM, [id number] 06:48:00 Test Item Value Reference Range Comments CALCIUM IONIZED (BEAKER) (test jxle=959) 1.12 mmol/L 1.12-1.27 PH, BLOOD (BEAKER) (test bnwk=3365) 7.33 PROTHROMBIN [id number] 06:24:00 Test Item Value Reference Range Comments PROTIME (BEAKER) (test gctm=757) 25.4 seconds 11.7-14.7 INR (BEAKER) (test efxl=650) 2.3 <=5.9 RECOMMENDED COUMADIN/WARFARIN INR THERAPY RANGESSTANDARD DOSE: 2.0 - 3.0 Includes: PROPHYLAXIS forvenous thrombosis, systemic embolization; TREATMENT for venous thrombosis and/or pulmonary embolus.HIGH RISK: Target INR is 2.5-3.5 for patients with mechanical heart valves.[id number] 11:17:00 Test Item Value Reference Range Comments FIBRINOGEN LEVEL (BEAKER) (test wxut=908) 115 mg/dl 225-434 CALCIUM, [id number] 06:04:00 Test Item Value Reference Range Comments CALCIUM IONIZED (BEAKER) (test ogmb=491) 1.08 mmol/L 1.12-1.27 PH, BLOOD (BEAKER) (test cebd=4159) 7.41 CBC W/PLT COUNT & AUTO [id number] 05:28:00 Test Item Value Reference Range Comments WHITE BLOOD CELL COUNT (BEAKER) (test vogx=212) 5.6 K/ L 4.0-10.0 RED BLOOD CELL COUNT (BEAKER) (test kqzh=263) 2.00 M/ L 4.20-5.80 HEMOGLOBIN (BEAKER) (test yoqy=869) 7.2 GM/DL 13.0-16.8 HEMATOCRIT (BEAKER) (test vdbm=931) 21.2 % 40.0-50.0 MEAN CORPUSCULAR VOLUME (BEAKER) (test yuuv=668) 106.0 fL 82.0-98.0 MEAN CORPUSCULAR HEMOGLOBIN (BEAKER) (test 36.0 pg 27.0-33.0 asvu=121) MEAN CORPUSCULAR HEMOGLOBIN CONC (BEAKER) (test 34.0 GM/DL 32.0-36.0 xxbr=847) RED CELL DISTRIBUTION WIDTH (BEAKER) (test 13.9 % 10.3-14.2 ryjb=982) PLATELET COUNT (BEAKER) (test scya=667) 74 K/CU MM 150-430 MEAN PLATELET VOLUME (BEAKER) (test mjjj=841) 6.6 fL 6.5-10.5 NUCLEATED RED BLOOD CELLS (BEAKER) (test 0 /100 WBC 0-0 obne=234) NEUTROPHILS RELATIVE PERCENT (BEAKER) (test 66 % fxvl=208) LYMPHOCYTES RELATIVE PERCENT (BEAKER) (test 14 % zwqu=752) MONOCYTES RELATIVE PERCENT (BEAKER) (test 13 % ilts=000) EOSINOPHILS RELATIVE PERCENT (BEAKER) (test 7 % obro=117) BASOPHILS RELATIVE PERCENT (BEAKER) (test 0 % tmbx=318) NEUTROPHILS ABSOLUTE COUNT (BEAKER) (test 3.67 K/ L 1.80-8.00 lvya=538) LYMPHOCYTES ABSOLUTE COUNT (BEAKER) (test 0.80 K/ L 1.48-4.50 rpit=099) MONOCYTES ABSOLUTE COUNT (BEAKER) (test uscs=529) 0.69 K/ L 0.00-1.30 EOSINOPHILS ABSOLUTE COUNT (BEAKER) (test 0.38 K/ L 0.00-0.50 tsyw=171) BASOPHILS ABSOLUTE COUNT (BEAKER) (test knxy=608) 0.02 K/ L 0.00-0.20 0.00PROTHROMBIN [id number] 05:11:00 Test Item Value Reference Range Comments PROTIME (BEAKER) (test uqrq=384) 25.9 seconds 11.7-14.7 INR (BEAKER) (test bokf=363) 2.4 <=5.9 RECOMMENDED COUMADIN/WARFARIN INR THERAPY RANGESSTANDARD DOSE: 2.0 - 3.0 Includes: PROPHYLAXIS forvenous thrombosis, systemic embolization; TREATMENT for venous thrombosis and/or pulmonary embolus.HIGH RISK: Target INR is 2.5-3.5 for patients with mechanical heart valves.[id number] 05:03:00 Test Item Value Reference Range Comments PHOSPHORUS (BEAKER) (test bwcc=935) 3.5 mg/dL 2.3-4.7 [id number] 05:03:00 Test Item Value Reference Range Comments MAGNESIUM (BEAKER) (test wsrg=913) 1.7 mg/dL 1.6-2.6 BASIC METABOLIC [id number] 05:03:00 Test Item Value Reference Range Comments SODIUM (BEAKER) (test 135 meq/L 136-145 lzxh=735) POTASSIUM (BEAKER) (test 4.0 meq/L 3.5-5.1 roge=161) CHLORIDE (BEAKER) (test 107 meq/L 98-107 rkzq=254) CO2 (BEAKER) (test 20 meq/L 22-29 idqh=184) BLOOD UREA NITROGEN 22 mg/dL 7-21 (BEAKER) (test xzsm=010) CREATININE (BEAKER) (test 1.77 mg/dL 0.57-1.25 bjnm=161) GLUCOSE RANDOM (BEAKER) 83 mg/dL 70-105 (test cqee=935) CALCIUM (BEAKER) (test 8.3 mg/dL 8.4-10.2 avdw=544) EGFR (BEAKER) (test 41 mL/min/1.73 sq m ESTIMATED GFR IS NOT qtlo=6666) ACCURATE CREATININE CLEARANCE IN PREDICTING GLOMERULAR FILTRATION RATE. ESTIMATED GFR IS NOT APPLICABLE FOR DIALYSIS PATIENTS. Specimen moderately ictericHEPATIC FUNCTION [id number] 05:03:00 Test Item Value Reference Range Comments TOTAL PROTEIN (BEAKER) (test oxoh=505) 6.2 gm/dL 6.0-8.3 ALBUMIN (BEAKER) (test jmkq=4711) 3.7 g/dL 3.5-5.0 BILIRUBIN TOTAL (BEAKER) (test zxga=222) 6.0 mg/dL 0.2-1.2 BILIRUBIN DIRECT (BEAKER) (test gauy=450) 2.6 mg/dL 0.1-0.5 ALKALINE PHOSPHATASE (BEAKER) (test iwvq=650) 48 U/L 40-150 AST (SGOT) (BEAKER) (test yoxa=610) 26 U/L 5-34 ALT (SGPT) (BEAKER) (test nupv=583) 8 U/L 6-55 Specimen moderately ictericURINE [id number] 14:42:00 Test Item Value Reference Range Comments CULTURE (BEAKER) (test mdev=8637) No growth ANTI-NUCLEAR ANTIBODY (CHERYL)[id number] 13:32:00 Test Item Value Reference Range Comments ANTI-NUCLEAR ANTIBODY (CHERYL) (BEAKER) (test Negative Negative jxmu=231) PLATELET [id number] 06:30:00 Test Item Value Reference Range Comments PLATELET COUNT (BEAKER) (test acto=818) 104 K/CU MM 150-430 [id number] 06:22:00 Test Item Value Reference Range Comments FIBRINOGEN LEVEL (BEAKER) (test gvas=990) 106 mg/dl 225-434 [id number] 06:16:00 Test Item Value Reference Range Comments PARTIAL THROMBOPLASTIN TIME (BEAKER) (test 48.1 seconds 22.5-36.0 avir=410) PROTHROMBIN [id number] 06:15:00 Test Item Value Reference Range Comments PROTIME (BEAKER) (test sudx=483) 23.5 seconds 11.7-14.7 INR (BEAKER) (test rhmf=725) 2.1 <=5.9 RECOMMENDED COUMADIN/WARFARIN INR THERAPY RANGESSTANDARD DOSE: 2.0 - 3.0 Includes: PROPHYLAXIS forvenous thrombosis, systemic embolization; TREATMENT for venous thrombosis and/or pulmonary embolus.HIGH RISK: Target INR is 2.5-3.5 for patients with mechanical heart valves.[id number] 06:12:00 Test Item Value Reference Range Comments MAGNESIUM (BEAKER) (test 2.0 mg/dL 1.6-2.6 Specimen slightly hemolyzed vrbt=366) [id number] 06:12:00 Test Item Value Reference Range Comments PHOSPHORUS (BEAKER) (test 5.0 mg/dL 2.3-4.7 Specimen slightly hemolyzed czjj=963) BASIC METABOLIC [id number] 06:12:00 Test Item Value Reference Range Comments SODIUM (BEAKER) (test 135 meq/L 136-145 dyjz=933) POTASSIUM (BEAKER) (test 4.7 meq/L 3.5-5.1 Specimen slightly ypcx=107) hemolyzed CHLORIDE (BEAKER) (test 107 meq/L 98-107 iudy=060) CO2 (BEAKER) (test 20 meq/L 22-29 jbps=438) BLOOD UREA NITROGEN 18 mg/dL 7-21 (BEAKER) (test ulsv=895) CREATININE (BEAKER) (test 1.74 mg/dL 0.57-1.25 Specimen slightly pdxj=300) hemolyzed GLUCOSE RANDOM (BEAKER) 76 mg/dL 70-105 (test kyor=358) CALCIUM (BEAKER) (test 8.1 mg/dL 8.4-10.2 ktvw=469) EGFR (BEAKER) (test 42 mL/min/1.73 sq m ESTIMATED GFR IS NOT ssjd=8846) ACCURATE CREATININE CLEARANCE IN PREDICTING GLOMERULAR FILTRATION RATE. ESTIMATED GFR IS NOT APPLICABLE FOR DIALYSIS PATIENTS. Specimen moderately ictericHEPATIC FUNCTION [id number] 06:12:00 Test Item Value Reference Range Comments TOTAL PROTEIN (BEAKER) (test 6.6 gm/dL 6.0-8.3 Specimen slightly hemolyzed kpjh=075) ALBUMIN (BEAKER) (test 3.7 g/dL 3.5-5.0 Specimen slightly hemolyzed lgfp=9616) BILIRUBIN TOTAL (BEAKER) (test 5.7 mg/dL 0.2-1.2 Specimen slightly hemolyzed sdfh=625) BILIRUBIN DIRECT (BEAKER) (test 2.7 mg/dL 0.1-0.5 Specimen slightly hemolyzed dukq=132) ALKALINE PHOSPHATASE (BEAKER) 56 U/L 40-150 (test hokp=473) AST (SGOT) (BEAKER) (test 29 U/L 5-34 Specimen slightly hemolyzed dwaz=730) ALT (SGPT) (BEAKER) (test 7 U/L 6-55 Specimen slightly hemolyzed ljow=789) Specimen moderately ictericLACTIC ACID, VENOUS, WHOLE [id number] 06:04:00 Test Item Value Reference Range Comments LACTATE BLOOD VENOUS (2) (BEAKER) (test 1.0 mmol/L 0.5-2.2 mmig=8256) Effective 02/28/2016: Units/Reference Range ChangeNew: 0.5-2.2 mmol/L Previous: 5 -20 mg/dLSpecimen moderately ictericCALCIUM, [id number] 05:56:00 Test Item Value Reference Range Comments CALCIUM IONIZED (BEAKER) (test otdz=816) 1.00 mmol/L 1.12-1.27 PH, BLOOD (BEAKER) (test hszj=7867) 7.34 [id number] 21:34:00 Test Item Value Reference Range Comments FIBRINOGEN LEVEL (BEAKER) (test uwok=033) 105 mg/dl 225-434 PLATELET [id number] 20:52:00 Test Item Value Reference Range Comments PLATELET COUNT (BEAKER) (test ssdm=272) 77 K/CU MM 150-430 PT/[id number] 20:51:00 Test Item Value Reference Range Comments PROTIME (BEAKER) (test dtid=578) 21.1 seconds 11.7-14.7 INR (BEAKER) (test ojrb=865) 1.8 <=5.9 PARTIAL THROMBOPLASTIN TIME (BEAKER) (test 47.3 seconds 22.5-36.0 jsoe=649) RECOMMENDED COUMADIN/WARFARIN INR THERAPY RANGESSTANDARD DOSE: 2.0 - 3.0 Includes: PROPHYLAXIS forvenous thrombosis, systemic embolization; TREATMENT for venous thrombosis and/or pulmonary embolus.HIGH RISK: Target INR is 2.5-3.5 for patients with mechanical heart valves.[id number] 20:51:00 Test Item Value Reference Range Comments PARTIAL THROMBOPLASTIN TIME (BEAKER) (test 47.3 seconds 22.5-36.0 phog=404) PROTHROMBIN [id number] 20:50:00 Test Item Value Reference Range Comments PROTIME (BEAKER) (test nfdj=095) 21.1 seconds 11.7-14.7 INR (BEAKER) (test mkxf=603) 1.8 <=5.9 RECOMMENDED COUMADIN/WARFARIN INR THERAPY RANGESSTANDARD DOSE: 2.0 - 3.0 Includes: PROPHYLAXIS forvenous thrombosis, systemic embolization; TREATMENT for venous thrombosis and/or pulmonary embolus.HIGH RISK: Target INR is 2.5-3.5 for patients with mechanical heart valves.[id number] 19:30:00 Test Item Value Reference Range Comments PARTIAL THROMBOPLASTIN TIME (BEAKER) (test 45.1 seconds 22.5-36.0 ctpz=546) PROTHROMBIN [id number] 19:29:00 Test Item Value Reference Range Comments PROTIME (BEAKER) (test zecg=535) 28.2 seconds 11.7-14.7 INR (BEAKER) (test ncas=344) 2.6 <=5.9 RECOMMENDED COUMADIN/WARFARIN INR THERAPY RANGESSTANDARD DOSE: 2.0 - 3.0 Includes: PROPHYLAXIS forvenous thrombosis, systemic embolization; TREATMENT for venous thrombosis and/or pulmonary embolus.HIGH RISK: Target INR is 2.5-3.5 for patients with mechanical heart valves.BODY FLUID CELL COUNT WITH [id number] 18:53:00 Test Item Value Reference Range Comments APPEARANCE FLUID (BEAKER) (test xszn=473) Hazy Clear COLOR FLUID (BEAKER) (test wniy=301) Yellow Colorless, Straw RBC FLUID (BEAKER) (test nqki=342) 900 /cu mm <=1 ADJUSTED WBC FLUID (BEAKER) (test lbwg=2099) 306 /cu mm <=5 LINING CELLS (BEAKER) (test czqi=7435) 64 /cu mm <=1 NEUTROPHILS FLUID (BEAKER) (test lvze=3273) 4 % LYMPHS FLUID (BEAKER) (test gonc=039) 18 % MONO/MACROPHAGE FLUID (BEAKER) (test aagw=538) 78 % EOSINOPHILS FLUID (BEAKER) (test zlhu=475) 0 % BASO FLUID (BEAKER) (test fgig=912) 0 % CONTAINER BODY FLUID (BEAKER) (test upej=5646) EDTA Tube [id number] 16:56:00 Test Item Value Reference Range Comments AMYLASE (BEAKER) (test bpwz=942) 37 U/L 25-125 Specimen moderately ictericCOMPREHENSIVE METABOLIC [id number] 16:56:00 Test Item Value Reference Range Comments TOTAL PROTEIN (BEAKER) 6.1 gm/dL 6.0-8.3 (test wqvd=132) ALBUMIN (BEAKER) (test 3.2 g/dL 3.5-5.0 uezp=9770) ALKALINE PHOSPHATASE 67 U/L 40-150 (BEAKER) (test gunw=679) BILIRUBIN TOTAL (BEAKER) 5.7 mg/dL 0.2-1.2 (test evlq=920) SODIUM (BEAKER) (test 134 meq/L 136-145 ksur=760) POTASSIUM (BEAKER) (test 3.8 meq/L 3.5-5.1 csfk=147) CHLORIDE (BEAKER) (test 106 meq/L 98-107 spbu=560) CO2 (BEAKER) (test 19 meq/L 22-29 zoit=225) BLOOD UREA NITROGEN 18 mg/dL 7-21 (BEAKER) (test jkzc=933) CREATININE (BEAKER) (test 1.52 mg/dL 0.57-1.25 rzmz=142) GLUCOSE RANDOM (BEAKER) 112 mg/dL 70-105 (test jzuj=371) CALCIUM (BEAKER) (test 8.3 mg/dL 8.4-10.2 vqhf=331) AST (SGOT) (BEAKER) (test 28 U/L 5-34 djxp=498) ALT (SGPT) (BEAKER) (test 10 U/L 6-55 thgv=277) EGFR (BEAKER) (test 49 mL/min/1.73 sq m ESTIMATED GFR IS NOT stqt=2481) ACCURATE CREATININE CLEARANCE IN PREDICTING GLOMERULAR FILTRATION RATE. ESTIMATED GFR IS NOT APPLICABLE FOR DIALYSIS PATIENTS. Specimen moderately [id number] 16:56:00 Test Item Value Reference Range Comments LIPASE (BEAKER) (test njhl=163) 52 U/L 8-78 Specimen moderately ictericCBC W/PLT COUNT & AUTO [id number] 16: 27:00 Test Item Value Reference Range Comments WHITE BLOOD CELL COUNT (BEAKER) (test cvsh=030) 3.7 K/ L 4.0-10.0 RED BLOOD CELL COUNT (BEAKER) (test wywq=078) 2.16 M/ L 4.20-5.80 HEMOGLOBIN (BEAKER) (test saly=557) 7.8 GM/DL 13.0-16.8 HEMATOCRIT (BEAKER) (test cdor=132) 23.1 % 40.0-50.0 MEAN CORPUSCULAR VOLUME (BEAKER) (test fmtk=407) 107.0 fL 82.0-98.0 MEAN CORPUSCULAR HEMOGLOBIN (BEAKER) (test 36.0 pg 27.0-33.0 ejhi=423) MEAN CORPUSCULAR HEMOGLOBIN CONC (BEAKER) (test 33.6 GM/DL 32.0-36.0 wxrg=437) RED CELL DISTRIBUTION WIDTH (BEAKER) (test 13.9 % 10.3-14.2 elpr=246) PLATELET COUNT (BEAKER) (test jwag=763) 78 K/CU MM 150-430 MEAN PLATELET VOLUME (BEAKER) (test biut=593) 6.2 fL 6.5-10.5 NUCLEATED RED BLOOD CELLS (BEAKER) (test 0 /100 WBC 0-0 iolw=115) NEUTROPHILS RELATIVE PERCENT (BEAKER) (test 50 % xpjh=968) LYMPHOCYTES RELATIVE PERCENT (BEAKER) (test 25 % mbsf=690) MONOCYTES RELATIVE PERCENT (BEAKER) (test 19 % ciuc=524) EOSINOPHILS RELATIVE PERCENT (BEAKER) (test 6 % ljwa=998) BASOPHILS RELATIVE PERCENT (BEAKER) (test 1 % lems=326) NEUTROPHILS ABSOLUTE COUNT (BEAKER) (test 1.82 K/ L 1.80-8.00 bety=040) LYMPHOCYTES ABSOLUTE COUNT (BEAKER) (test 0.91 K/ L 1.48-4.50 rigi=203) MONOCYTES ABSOLUTE COUNT (BEAKER) (test yush=999) 0.69 K/ L 0.00-1.30 EOSINOPHILS ABSOLUTE COUNT (BEAKER) (test 0.21 K/ L 0.00-0.50 whpp=372) BASOPHILS ABSOLUTE COUNT (BEAKER) (test qhdp=302) 0.02 K/ L 0.00-0.20 0.00HEPATIC FUNCTION [id number] 08:34:00 Test Item Value Reference Range Comments TOTAL PROTEIN (BEAKER) (test tkmy=336) 5.9 gm/dL 6.0-8.3 ALBUMIN (BEAKER) (test dapq=5038) 3.2 g/dL 3.5-5.0 BILIRUBIN TOTAL (BEAKER) (test mkue=428) 5.4 mg/dL 0.2-1.2 BILIRUBIN DIRECT (BEAKER) (test hvgn=413) 2.5 mg/dL 0.1-0.5 ALKALINE PHOSPHATASE (BEAKER) (test udhd=119) 60 U/L 40-150 AST (SGOT) (BEAKER) (test svxd=794) 28 U/L 5-34 ALT (SGPT) (BEAKER) (test heyu=775) 10 U/L 6-55 Specimen moderately [id number] 08:16:00 Test Item Value Reference Range Comments PHOSPHORUS (BEAKER) (test ulaq=941) 3.0 mg/dL 2.3-4.7 [id number] 08:16:00 Test Item Value Reference Range Comments MAGNESIUM (BEAKER) (test ecdi=465) 1.6 mg/dL 1.6-2.6 BASIC METABOLIC [id number] 08:16:00 Test Item Value Reference Range Comments SODIUM (BEAKER) (test 133 meq/L 136-145 siba=991) POTASSIUM (BEAKER) (test 3.6 meq/L 3.5-5.1 qpcf=235) CHLORIDE (BEAKER) (test 105 meq/L 98-107 kvjn=561) CO2 (BEAKER) (test 20 meq/L 22-29 zdcz=495) BLOOD UREA NITROGEN 18 mg/dL 7-21 (BEAKER) (test shwa=822) CREATININE (BEAKER) (test 1.54 mg/dL 0.57-1.25 flcg=692) GLUCOSE RANDOM (BEAKER) 70 mg/dL 70-105 (test tybr=132) CALCIUM (BEAKER) (test 8.2 mg/dL 8.4-10.2 hklw=816) EGFR (BEAKER) (test 48 mL/min/1.73 sq m ESTIMATED GFR IS NOT twxp=7817) ACCURATE CREATININE CLEARANCE IN PREDICTING GLOMERULAR FILTRATION RATE. ESTIMATED GFR IS NOT APPLICABLE FOR DIALYSIS PATIENTS. Specimen moderately ictericCBC W/PLT COUNT & AUTO [id number] 08: 06:00 Test Item Value Reference Range Comments WHITE BLOOD CELL COUNT (BEAKER) (test gpkd=079) 3.4 K/ L 4.0-10.0 RED BLOOD CELL COUNT (BEAKER) (test gldn=735) 2.03 M/ L 4.20-5.80 HEMOGLOBIN (BEAKER) (test babi=172) 7.3 GM/DL 13.0-16.8 HEMATOCRIT (BEAKER) (test yidk=326) 21.6 % 40.0-50.0 MEAN CORPUSCULAR VOLUME (BEAKER) (test aigy=606) 106.0 fL 82.0-98.0 MEAN CORPUSCULAR HEMOGLOBIN (BEAKER) (test 35.8 pg 27.0-33.0 eqsv=100) MEAN CORPUSCULAR HEMOGLOBIN CONC (BEAKER) (test 33.7 GM/DL 32.0-36.0 qtcz=218) RED CELL DISTRIBUTION WIDTH (BEAKER) (test 13.5 % 10.3-14.2 mhqh=639) PLATELET COUNT (BEAKER) (test qfsa=559) 82 K/CU MM 150-430 MEAN PLATELET VOLUME (BEAKER) (test jgjr=252) 6.7 fL 6.5-10.5 NUCLEATED RED BLOOD CELLS (BEAKER) (test 0 /100 WBC 0-0 fekv=616) NEUTROPHILS RELATIVE PERCENT (BEAKER) (test 50 % pdch=415) LYMPHOCYTES RELATIVE PERCENT (BEAKER) (test 25 % acxe=355) MONOCYTES RELATIVE PERCENT (BEAKER) (test 19 % exzp=399) EOSINOPHILS RELATIVE PERCENT (BEAKER) (test 5 % vdqh=507) BASOPHILS RELATIVE PERCENT (BEAKER) (test 1 % rvqy=009) NEUTROPHILS ABSOLUTE COUNT (BEAKER) (test 1.69 K/ L 1.80-8.00 zqdh=566) LYMPHOCYTES ABSOLUTE COUNT (BEAKER) (test 0.83 K/ L 1.48-4.50 pptp=599) MONOCYTES ABSOLUTE COUNT (BEAKER) (test cveu=904) 0.65 K/ L 0.00-1.30 EOSINOPHILS ABSOLUTE COUNT (BEAKER) (test 0.17 K/ L 0.00-0.50 whga=690) BASOPHILS ABSOLUTE COUNT (BEAKER) (test emeb=496) 0.04 K/ L 0.00-0.20 0.00PROTHROMBIN [id number] 08:01:00 Test Item Value Reference Range Comments PROTIME (BEAKER) (test xmfp=940) 27.6 seconds 11.7-14.7 INR (BEAKER) (test ayyf=518) 2.6 <=5.9 RECOMMENDED COUMADIN/WARFARIN INR THERAPY RANGESSTANDARD DOSE: 2.0 - 3.0 Includes: PROPHYLAXIS forvenous thrombosis, systemic embolization; TREATMENT for venous thrombosis and/or pulmonary embolus.HIGH RISK: Target INR is 2.5-3.5 for patients with mechanical heart valves.CALCIUM, [id number] 07:58:00 Test Item Value Reference Range Comments CALCIUM IONIZED (BEAKER) (test jnqb=443) 1.00 mmol/L 1.12-1.27 PH, BLOOD (BEAKER) (test oguf=2005) 7.53 URINALYSIS W/ [id number] 18:42:00 Test Item Value Reference Range Comments COLOR (BEAKER) (test uwit=817) Yellow CLARITY (BEAKER) (test laiw=753) Clear SPECIFIC GRAVITY UA (BEAKER) (test 1.009 1.001-1.035 megb=080) PH UA (BEAKER) (test ygrw=003) 7.5 5.0-8.0 PROTEIN UA (BEAKER) (test rtbl=719) Negative Negative GLUCOSE UA (BEAKER) (test tfan=348) Negative Negative KETONES UA (BEAKER) (test adwu=709) Negative Negative BILIRUBIN UA (BEAKER) (test ezgp=747) Negative Negative BLOOD UA (BEAKER) (test elcr=515) Negative Negative NITRITE UA (BEAKER) (test ukmd=777) Negative Negative LEUKOCYTE ESTERASE UA (BEAKER) (test Negative Negative pngt=051) UROBILINOGEN UA (BEAKER) (test fzpa=322) 3.0 mg/dL 0.2-1.0 RBC UA (BEAKER) (test ndoz=654) 6 /HPF WBC UA (BEAKER) (test ybif=974) 1 /HPF SOURCE(BEAKER) (test rljq=8828) Urine, Clean Catch PROTHROMBIN [id number] 15:13:00 Test Item Value Reference Range Comments PROTIME (BEAKER) (test kzes=112) 31.4 seconds 11.7-14.7 INR (BEAKER) (test xtbv=602) 3.0 <=5.9 RECOMMENDED COUMADIN/WARFARIN INR THERAPY RANGESSTANDARD DOSE: 2.0 - 3.0 Includes: PROPHYLAXIS forvenous thrombosis, systemic embolization; TREATMENT for venous thrombosis and/or pulmonary embolus.HIGH RISK: Target INR is 2.5-3.5 for patients with mechanical heart valves.Draw after vitamin K administrationCBC W/PLT COUNT & AUTO [id number] 07:02:00 Test Item Value Reference Range Comments WHITE BLOOD CELL COUNT (BEAKER) (test qgtq=546) 3.0 K/ L 4.0-10.0 RED BLOOD CELL COUNT (BEAKER) (test jmpy=233) 2.21 M/ L 4.20-5.80 HEMOGLOBIN (BEAKER) (test aymk=123) 7.5 GM/DL 13.0-16.8 HEMATOCRIT (BEAKER) (test pihh=273) 23.5 % 40.0-50.0 MEAN CORPUSCULAR VOLUME (BEAKER) (test ozzm=404) 106.0 fL 82.0-98.0 MEAN CORPUSCULAR HEMOGLOBIN (BEAKER) (test 34.0 pg 27.0-33.0 keoc=553) MEAN CORPUSCULAR HEMOGLOBIN CONC (BEAKER) (test 32.0 GM/DL 32.0-36.0 xsgn=592) RED CELL DISTRIBUTION WIDTH (BEAKER) (test 13.0 % 10.3-14.2 hpoj=379) PLATELET COUNT (BEAKER) (test agdv=377) 81 K/CU MM 150-430 MEAN PLATELET VOLUME (BEAKER) (test jiny=699) 6.3 fL 6.5-10.5 NUCLEATED RED BLOOD CELLS (BEAKER) (test 0 /100 WBC 0-0 jmrv=371) NEUTROPHILS RELATIVE PERCENT (BEAKER) (test 52 % ldou=720) LYMPHOCYTES RELATIVE PERCENT (BEAKER) (test 24 % ezgy=953) MONOCYTES RELATIVE PERCENT (BEAKER) (test 20 % hwtf=511) EOSINOPHILS RELATIVE PERCENT (BEAKER) (test 3 % pnby=520) BASOPHILS RELATIVE PERCENT (BEAKER) (test 1 % umbj=156) NEUTROPHILS ABSOLUTE COUNT (BEAKER) (test 1.53 K/ L 1.80-8.00 zony=489) LYMPHOCYTES ABSOLUTE COUNT (BEAKER) (test 0.71 K/ L 1.48-4.50 hfju=542) MONOCYTES ABSOLUTE COUNT (BEAKER) (test dbzo=288) 0.60 K/ L 0.00-1.30 EOSINOPHILS ABSOLUTE COUNT (BEAKER) (test 0.10 K/ L 0.00-0.50 zgku=185) BASOPHILS ABSOLUTE COUNT (BEAKER) (test qzcc=462) 0.03 K/ L 0.00-0.20 0.00BASIC METABOLIC [id number] 06:29:00 Test Item Value Reference Range Comments SODIUM (BEAKER) (test 135 meq/L 136-145 ksmb=580) POTASSIUM (BEAKER) (test 4.0 meq/L 3.5-5.1 ychu=513) CHLORIDE (BEAKER) (test 106 meq/L 98-107 pzam=618) CO2 (BEAKER) (test 22 meq/L 22-29 znwa=833) BLOOD UREA NITROGEN 17 mg/dL 7-21 (BEAKER) (test vvzv=588) CREATININE (BEAKER) (test 1.46 mg/dL 0.57-1.25 qjrr=680) GLUCOSE RANDOM (BEAKER) 75 mg/dL 70-105 (test waig=125) CALCIUM (BEAKER) (test 8.0 mg/dL 8.4-10.2 assh=458) EGFR (BEAKER) (test 51 mL/min/1.73 sq m ESTIMATED GFR IS NOT eeax=8756) ACCURATE CREATININE CLEARANCE IN PREDICTING GLOMERULAR FILTRATION RATE. ESTIMATED GFR IS NOT APPLICABLE FOR DIALYSIS PATIENTS. Specimen moderately ictericHEPATIC FUNCTION [id number] 06:29:00 Test Item Value Reference Range Comments TOTAL PROTEIN (BEAKER) (test wheh=826) 5.9 gm/dL 6.0-8.3 ALBUMIN (BEAKER) (test zdfw=9792) 3.0 g/dL 3.5-5.0 BILIRUBIN TOTAL (BEAKER) (test rpvu=813) 5.4 mg/dL 0.2-1.2 BILIRUBIN DIRECT (BEAKER) (test ujpi=451) 2.7 mg/dL 0.1-0.5 ALKALINE PHOSPHATASE (BEAKER) (test dblh=204) 65 U/L 40-150 AST (SGOT) (BEAKER) (test etaj=011) 27 U/L 5-34 ALT (SGPT) (BEAKER) (test ltrs=637) 7 U/L 6-55 Specimen moderately ictericPROTHROMBIN [id number] 06:23:00 Test Item Value Reference Range Comments PROTIME (BEAKER) (test fdyz=738) 31.2 seconds 11.7-14.7 INR (BEAKER) (test wswp=494) 3.0 <=5.9 RECOMMENDED COUMADIN/WARFARIN INR THERAPY RANGESSTANDARD DOSE: 2.0 - 3.0 Includes: PROPHYLAXIS forvenous thrombosis, systemic embolization; TREATMENT for venous thrombosis and/or pulmonary embolus.HIGH RISK: Target INR is 2.5-3.5 for patients with mechanical heart valves.CBC W/PLT COUNT & AUTO [id number] 06:26:00 Test Item Value Reference Range Comments WHITE BLOOD CELL COUNT (BEAKER) (test nvwg=415) 3.0 K/ L 4.0-10.0 RED BLOOD CELL COUNT (BEAKER) (test ojqt=930) 2.16 M/ L 4.20-5.80 HEMOGLOBIN (BEAKER) (test blaa=401) 7.4 GM/DL 13.0-16.8 HEMATOCRIT (BEAKER) (test carx=243) 23.1 % 40.0-50.0 MEAN CORPUSCULAR VOLUME (BEAKER) (test czgr=677) 107.0 fL 82.0-98.0 MEAN CORPUSCULAR HEMOGLOBIN (BEAKER) (test 34.4 pg 27.0-33.0 hgeg=427) MEAN CORPUSCULAR HEMOGLOBIN CONC (BEAKER) (test 32.1 GM/DL 32.0-36.0 kfbc=039) RED CELL DISTRIBUTION WIDTH (BEAKER) (test 13.1 % 10.3-14.2 jlta=690) PLATELET COUNT (BEAKER) (test dvyg=880) 72 K/CU MM 150-430 MEAN PLATELET VOLUME (BEAKER) (test evrv=500) 6.1 fL 6.5-10.5 NUCLEATED RED BLOOD CELLS (BEAKER) (test 0 /100 WBC 0-0 nvzg=959) NEUTROPHILS RELATIVE PERCENT (BEAKER) (test 58 % gtep=780) LYMPHOCYTES RELATIVE PERCENT (BEAKER) (test 21 % abnu=658) MONOCYTES RELATIVE PERCENT (BEAKER) (test 15 % xvan=378) EOSINOPHILS RELATIVE PERCENT (BEAKER) (test 4 % pglw=005) BASOPHILS RELATIVE PERCENT (BEAKER) (test 1 % vtla=482) NEUTROPHILS ABSOLUTE COUNT (BEAKER) (test 1.73 K/ L 1.80-8.00 xuaw=769) LYMPHOCYTES ABSOLUTE COUNT (BEAKER) (test 0.64 K/ L 1.48-4.50 cuca=213) MONOCYTES ABSOLUTE COUNT (BEAKER) (test fvhi=572) 0.45 K/ L 0.00-1.30 EOSINOPHILS ABSOLUTE COUNT (BEAKER) (test 0.13 K/ L 0.00-0.50 gcdh=904) BASOPHILS ABSOLUTE COUNT (BEAKER) (test lakq=205) 0.02 K/ L 0.00-0.20 0.00BASIC METABOLIC [id number] 06:24:00 Test Item Value Reference Range Comments SODIUM (BEAKER) (test 134 meq/L 136-145 rjut=259) POTASSIUM (BEAKER) (test 3.7 meq/L 3.5-5.1 qeec=097) CHLORIDE (BEAKER) (test 105 meq/L 98-107 ainl=584) CO2 (BEAKER) (test 21 meq/L 22-29 uyaj=338) BLOOD UREA NITROGEN 18 mg/dL 7-21 (BEAKER) (test rhzr=696) CREATININE (BEAKER) (test 1.53 mg/dL 0.57-1.25 mtrv=587) GLUCOSE RANDOM (BEAKER) 103 mg/dL 70-105 (test kflt=245) CALCIUM (BEAKER) (test 7.6 mg/dL 8.4-10.2 wgvm=909) EGFR (BEAKER) (test 48 mL/min/1.73 sq m ESTIMATED GFR IS NOT vpov=7653) ACCURATE CREATININE CLEARANCE IN PREDICTING GLOMERULAR FILTRATION RATE. ESTIMATED GFR IS NOT APPLICABLE FOR DIALYSIS PATIENTS. Specimen moderately ictericHEPATIC FUNCTION [id number] 06:19:00 Test Item Value Reference Range Comments TOTAL PROTEIN (BEAKER) (test ioam=079) 5.6 gm/dL 6.0-8.3 ALBUMIN (BEAKER) (test hoxa=9437) 2.4 g/dL 3.5-5.0 BILIRUBIN TOTAL (BEAKER) (test rpkx=365) 4.8 mg/dL 0.2-1.2 BILIRUBIN DIRECT (BEAKER) (test uonl=331) 2.6 mg/dL 0.1-0.5 ALKALINE PHOSPHATASE (BEAKER) (test dsfl=433) 70 U/L 40-150 AST (SGOT) (BEAKER) (test yock=533) 28 U/L 5-34 ALT (SGPT) (BEAKER) (test zpnf=696) 11 U/L 6-55 Specimen moderately ictericPROTHROMBIN [id number] 06:00:00 Test Item Value Reference Range Comments PROTIME (BEAKER) (test odey=455) 36.7 seconds 11.7-14.7 INR (BEAKER) (test vpml=261) 3.7 <=5.9 RECOMMENDED COUMADIN/WARFARIN INR THERAPY RANGESSTANDARD DOSE: 2.0 - 3.0 Includes: PROPHYLAXIS forvenous thrombosis, systemic embolization; TREATMENT for venous thrombosis and/or pulmonary embolus.HIGH RISK: Target INR is 2.5-3.5 for patients with mechanical heart valves.BODY FLUID CULTURE + GRAM [id number] 00:51:00 Test Item Value Reference Range Comments CULTURE (BEAKER) (test ekju=9369) No growth GRAM STAIN RESULT (BEAKER) (test 3+ WBCs kkqq=5413) GRAM STAIN RESULT (BEAKER) (test No organisms seen khjp=30969) BLOOD [id number] 17:08:00 Test Item Value Reference Range Comments CULTURE (BEAKER) (test ikok=6386) No growth in 5 days BLOOD [id number] 17:06:00 Test Item Value Reference Range Comments CULTURE (BEAKER) (test apfp=8984) No growth in 5 days CBC W/PLT COUNT & AUTO [id number] 07:05:00 Test Item Value Reference Range Comments WHITE BLOOD CELL COUNT (BEAKER) (test sivg=658) 3.5 K/ L 4.0-10.0 RED BLOOD CELL COUNT (BEAKER) (test ynxp=653) 2.16 M/ L 4.20-5.80 HEMOGLOBIN (BEAKER) (test wmog=489) 7.8 GM/DL 13.0-16.8 HEMATOCRIT (BEAKER) (test bodk=124) 23.9 % 40.0-50.0 MEAN CORPUSCULAR VOLUME (BEAKER) (test heiq=333) 111.0 fL 82.0-98.0 MEAN CORPUSCULAR HEMOGLOBIN (BEAKER) (test 36.3 pg 27.0-33.0 zdma=201) MEAN CORPUSCULAR HEMOGLOBIN CONC (BEAKER) (test 32.8 GM/DL 32.0-36.0 smxj=065) RED CELL DISTRIBUTION WIDTH (BEAKER) (test 13.9 % 10.3-14.2 oesc=768) PLATELET COUNT (BEAKER) (test ngzq=911) 72 K/CU MM 150-430 MEAN PLATELET VOLUME (BEAKER) (test ccly=033) 6.4 fL 6.5-10.5 NUCLEATED RED BLOOD CELLS (BEAKER) (test 0 /100 WBC 0-0 cwvz=089) NEUTROPHILS RELATIVE PERCENT (BEAKER) (test 51 % dluy=638) LYMPHOCYTES RELATIVE PERCENT (BEAKER) (test 25 % gawf=700) MONOCYTES RELATIVE PERCENT (BEAKER) (test 18 % qsae=112) EOSINOPHILS RELATIVE PERCENT (BEAKER) (test 6 % rnsx=290) BASOPHILS RELATIVE PERCENT (BEAKER) (test 0 % ccix=064) NEUTROPHILS ABSOLUTE COUNT (BEAKER) (test 1.77 K/ L 1.80-8.00 pdlo=222) LYMPHOCYTES ABSOLUTE COUNT (BEAKER) (test 0.87 K/ L 1.48-4.50 dotp=855) MONOCYTES ABSOLUTE COUNT (BEAKER) (test phkd=431) 0.62 K/ L 0.00-1.30 EOSINOPHILS ABSOLUTE COUNT (BEAKER) (test 0.22 K/ L 0.00-0.50 sggc=844) BASOPHILS ABSOLUTE COUNT (BEAKER) (test hmtc=835) 0.01 K/ L 0.00-0.20 0.00BASIC METABOLIC [id number] 06:54:00 Test Item Value Reference Range Comments SODIUM (BEAKER) (test 137 meq/L 136-145 dvjw=577) POTASSIUM (BEAKER) (test 3.8 meq/L 3.5-5.1 cvau=385) CHLORIDE (BEAKER) (test 109 meq/L 98-107 ifqi=848) CO2 (BEAKER) (test 21 meq/L 22-29 xfpk=721) BLOOD UREA NITROGEN 17 mg/dL 7-21 (BEAKER) (test vdif=096) CREATININE (BEAKER) (test 1.60 mg/dL 0.57-1.25 ynqt=151) GLUCOSE RANDOM (BEAKER) 76 mg/dL 70-105 (test leqn=560) CALCIUM (BEAKER) (test 7.5 mg/dL 8.4-10.2 dtjq=796) EGFR (BEAKER) (test 46 mL/min/1.73 sq m ESTIMATED GFR IS NOT mzuc=6952) ACCURATE CREATININE CLEARANCE IN PREDICTING GLOMERULAR FILTRATION RATE. ESTIMATED GFR IS NOT APPLICABLE FOR DIALYSIS PATIENTS. Specimen moderately ictericHEPATIC FUNCTION [id number] 06:53:00 Test Item Value Reference Range Comments TOTAL PROTEIN (BEAKER) (test ywla=331) 5.6 gm/dL 6.0-8.3 ALBUMIN (BEAKER) (test zpda=9858) 2.4 g/dL 3.5-5.0 BILIRUBIN TOTAL (BEAKER) (test yiff=599) 4.5 mg/dL 0.2-1.2 BILIRUBIN DIRECT (BEAKER) (test lvqu=082) 2.7 mg/dL 0.1-0.5 ALKALINE PHOSPHATASE (BEAKER) (test vwgc=364) 74 U/L 40-150 AST (SGOT) (BEAKER) (test svhb=566) 36 U/L 5-34 ALT (SGPT) (BEAKER) (test apzw=587) 13 U/L 6-55 Specimen moderately ictericB-TYPE NATRIURETIC FACTOR (BNP)[id number] 06:52:00 Test Item Value Reference Range Comments B-TYPE NATRIURETIC PEPTIDE (BEAKER) (test 446 pg/mL 0-100 yktk=754) PROTHROMBIN [id number] 06:36:00 Test Item Value Reference Range Comments PROTIME (BEAKER) (test nffv=232) 28.7 seconds 11.7-14.7 INR (BEAKER) (test faey=332) 2.7 <=5.9 RECOMMENDED COUMADIN/WARFARIN INR THERAPY RANGESSTANDARD DOSE: 2.0 - 3.0 Includes: PROPHYLAXIS forvenous thrombosis, systemic embolization; TREATMENT for venous thrombosis and/or pulmonary embolus.HIGH RISK: Target INR is 2.5-3.5 for patients with mechanical heart valves.EOSINOPHIL SMEAR, [id number] 21: 44:00 Test Item Value Reference Range Comments EOSINOPHIL SMEAR, URINE (BEAKER) (test No EOS seen No EOS seen uwrg=4572) CREATININE, RANDOM [id number] 18:02:00 Test Item Value Reference Range Comments CREATININE URINE (BEAKER) (test gtpn=819) 96.3 mg/dL Reference Range: No NormalsSODIUM, RANDOM [id number] 18:02:00 Test Item Value Reference Range Comments SODIUM URINE (BEAKER) (test amll=620) 58 meq/L Reference Range: No NormalsURINALYSIS W/ [id number] 17:33:00 Test Item Value Reference Range Comments COLOR (BEAKER) (test vknc=130) Yellow CLARITY (BEAKER) (test lwdw=463) Clear SPECIFIC GRAVITY UA (BEAKER) (test bwnm=500) 1.009 1.001-1.035 PH UA (BEAKER) (test zvuj=922) 6.0 5.0-8.0 PROTEIN UA (BEAKER) (test jkkz=575) Negative Negative GLUCOSE UA (BEAKER) (test mxgv=269) Negative Negative KETONES UA (BEAKER) (test ydyn=352) Negative Negative BILIRUBIN UA (BEAKER) (test jezb=109) Negative Negative BLOOD UA (BEAKER) (test dvgx=673) Negative Negative NITRITE UA (BEAKER) (test gayl=149) Negative Negative LEUKOCYTE ESTERASE UA (BEAKER) (test cmhk=940) Negative Negative UROBILINOGEN UA (BEAKER) (test kqvc=973) 4.0 mg/dL 0.2-1.0 RBC UA (BEAKER) (test hard=723) < /HPF WBC UA (BEAKER) (test fyhm=040) 2 /HPF BACTERIA (BEAKER) (test aqyk=956) Rare SOURCE(BEAKER) (test jmfp=3274) CBC W/PLT COUNT & AUTO [id number] 06:53:00 Test Item Value Reference Range Comments WHITE BLOOD CELL COUNT (BEAKER) (test zifi=882) 3.5 K/ L 4.0-10.0 RED BLOOD CELL COUNT (BEAKER) (test ekuc=213) 2.17 M/ L 4.20-5.80 HEMOGLOBIN (BEAKER) (test kgaf=206) 7.9 GM/DL 13.0-16.8 HEMATOCRIT (BEAKER) (test igwx=169) 23.9 % 40.0-50.0 MEAN CORPUSCULAR VOLUME (BEAKER) (test fiva=713) 110.0 fL 82.0-98.0 MEAN CORPUSCULAR HEMOGLOBIN (BEAKER) (test 36.1 pg 27.0-33.0 qqfv=621) MEAN CORPUSCULAR HEMOGLOBIN CONC (BEAKER) (test 32.9 GM/DL 32.0-36.0 yqfh=236) RED CELL DISTRIBUTION WIDTH (BEAKER) (test 14.0 % 10.3-14.2 fmqg=758) PLATELET COUNT (BEAKER) (test spho=729) 77 K/CU MM 150-430 MEAN PLATELET VOLUME (BEAKER) (test hspm=233) 6.1 fL 6.5-10.5 NUCLEATED RED BLOOD CELLS (BEAKER) (test 0 /100 WBC 0-0 eejk=749) NEUTROPHILS RELATIVE PERCENT (BEAKER) (test 56 % jocv=488) LYMPHOCYTES RELATIVE PERCENT (BEAKER) (test 20 % oqyh=273) MONOCYTES RELATIVE PERCENT (BEAKER) (test 18 % oaec=689) EOSINOPHILS RELATIVE PERCENT (BEAKER) (test 6 % wusk=180) BASOPHILS RELATIVE PERCENT (BEAKER) (test 1 % dusl=275) NEUTROPHILS ABSOLUTE COUNT (BEAKER) (test 1.95 K/ L 1.80-8.00 srnu=780) LYMPHOCYTES ABSOLUTE COUNT (BEAKER) (test 0.69 K/ L 1.48-4.50 gyqh=154) MONOCYTES ABSOLUTE COUNT (BEAKER) (test eqmr=475) 0.62 K/ L 0.00-1.30 EOSINOPHILS ABSOLUTE COUNT (BEAKER) (test 0.20 K/ L 0.00-0.50 sarv=139) BASOPHILS ABSOLUTE COUNT (BEAKER) (test ienu=942) 0.03 K/ L 0.00-0.20 0.00BASI METABOLIC [id number] 06:45:00 Test Item Value Reference Range Comments SODIUM (BEAKER) (test 134 meq/L 136-145 greu=746) POTASSIUM (BEAKER) (test 3.6 meq/L 3.5-5.1 lath=430) CHLORIDE (BEAKER) (test 106 meq/L 98-107 doea=006) CO2 (BEAKER) (test 21 meq/L 22-29 qxgt=448) BLOOD UREA NITROGEN 14 mg/dL 7-21 (BEAKER) (test uhvy=826) CREATININE (BEAKER) (test 1.33 mg/dL 0.57-1.25 undh=081) GLUCOSE RANDOM (BEAKER) 71 mg/dL 70-105 (test ptar=125) CALCIUM (BEAKER) (test 7.6 mg/dL 8.4-10.2 oilb=503) EGFR (BEAKER) (test 57 mL/min/1.73 sq m ESTIMATED GFR IS NOT hrnl=8893) ACCURATE CREATININE CLEARANCE IN PREDICTING GLOMERULAR FILTRATION RATE. ESTIMATED GFR IS NOT APPLICABLE FOR DIALYSIS PATIENTS. Specimen moderately ictericHEPATIC FUNCTION [id number] 06:40:00 Test Item Value Reference Range Comments TOTAL PROTEIN (BEAKER) (test lfod=982) 5.6 gm/dL 6.0-8.3 ALBUMIN (BEAKER) (test kjnp=7023) 2.1 g/dL 3.5-5.0 BILIRUBIN TOTAL (BEAKER) (test pqnc=929) 4.4 mg/dL 0.2-1.2 BILIRUBIN DIRECT (BEAKER) (test jdod=900) 2.9 mg/dL 0.1-0.5 ALKALINE PHOSPHATASE (BEAKER) (test stfr=545) 86 U/L 40-150 AST (SGOT) (BEAKER) (test enld=550) 45 U/L 5-34 ALT (SGPT) (BEAKER) (test nvam=305) 13 U/L 6-55 Specimen moderately ictericPROTHROMBIN [id number] 06:05:00 Test Item Value Reference Range Comments PROTIME (BEAKER) (test cncb=075) 29.4 seconds 11.7-14.7 INR (BEAKER) (test ozkf=108) 2.8 <=5.9 RECOMMENDED COUMADIN/WARFARIN INR THERAPY RANGESSTANDARD DOSE: 2.0 - 3.0 Includes: PROPHYLAXIS forvenous thrombosis, systemic embolization; TREATMENT for venous thrombosis and/or pulmonary embolus.HIGH RISK: Target INR is 2.5-3.5 for patients with mechanical heart valves.BODY FLUID CELL COUNT WITH [id number] 20:51:00 Test Item Value Reference Range Comments APPEARANCE FLUID (BEAKER) (test fzra=690) Slightly Hazy Clear COLOR FLUID (BEAKER) (test znyt=896) Yellow Colorless, Straw RBC FLUID (BEAKER) (test yfbm=289) 545 /cu mm <=1 ADJUSTED WBC FLUID (BEAKER) (test rczx=9141) 104 /cu mm <=5 LINING CELLS (BEAKER) (test hiwm=5271) 1 /cu mm <=1 NEUTROPHILS FLUID (BEAKER) (test ufsk=0130) 3 % LYMPHS FLUID (BEAKER) (test xwpy=404) 13 % MONO/MACROPHAGE FLUID (BEAKER) (test 84 % ctfj=859) EOSINOPHILS FLUID (BEAKER) (test xrnd=549) 0 % BASO FLUID (BEAKER) (test nfcd=285) 0 % CONTAINER BODY FLUID (BEAKER) (test EDTA Tube drob=5900) POCT-GLUCOSE [id number] 18:48:00 Test Item Value Reference Range Comments POC-GLUCOSE METER (BEAKER) 105 mg/dL 70-110 TESTED AT [facility] [address] [facility] (test bnxr=8546) [facility] [address] BASIC METABOLIC [id number] 05:45:00 Test Item Value Reference Range Comments SODIUM (BEAKER) (test 133 meq/L 136-145 zskz=096) POTASSIUM (BEAKER) (test 4.3 meq/L 3.5-5.1 Specimen moderately vtrq=311) hemolyzed CHLORIDE (BEAKER) (test 107 meq/L 98-107 spjw=946) CO2 (BEAKER) (test 19 meq/L 22-29 jtjj=258) BLOOD UREA NITROGEN 10 mg/dL 7-21 (BEAKER) (test ogcu=552) CREATININE (BEAKER) (test 0.86 mg/dL 0.57-1.25 Specimen moderately idfm=889) hemolyzed GLUCOSE RANDOM (BEAKER) 68 mg/dL 70-105 (test ayfo=719) CALCIUM (BEAKER) (test 7.5 mg/dL 8.4-10.2 zhot=087) EGFR (BEAKER) (test 94 mL/min/1.73 sq m ESTIMATED GFR IS NOT aqbl=6233) ACCURATE CREATININE CLEARANCE IN PREDICTING GLOMERULAR FILTRATION RATE. ESTIMATED GFR IS NOT APPLICABLE FOR DIALYSIS PATIENTS. Specimen slightly ictericHEPATIC FUNCTION [id number] 05:45:00 Test Item Value Reference Range Comments TOTAL PROTEIN (BEAKER) (test 5.9 gm/dL 6.0-8.3 Specimen moderately hemolyzed wjqu=037) ALBUMIN (BEAKER) (test 1.9 g/dL 3.5-5.0 Specimen moderately hemolyzed lkmx=8417) BILIRUBIN TOTAL (BEAKER) (test 4.4 mg/dL 0.2-1.2 Specimen moderately hemolyzed gfbj=241) BILIRUBIN DIRECT (BEAKER) 2.6 mg/dL 0.1-0.5 Specimen moderately hemolyzed (test dgme=226) ALKALINE PHOSPHATASE (BEAKER) 86 U/L 40-150 (test fbqb=860) AST (SGOT) (BEAKER) (test 74 U/L 5-34 Specimen moderately hemolyzed nmvn=036) ALT (SGPT) (BEAKER) (test 17 U/L 6-55 Specimen moderately unic=770) hemolyzed Specimen slightly ictericCBC W/PLT COUNT & AUTO [id number] 05:21 :00 Test Item Value Reference Range Comments WHITE BLOOD CELL COUNT (BEAKER) (test fegp=850) 3.5 K/ L 4.0-10.0 RED BLOOD CELL COUNT (BEAKER) (test zemm=108) 2.06 M/ L 4.20-5.80 HEMOGLOBIN (BEAKER) (test glfv=015) 7.9 GM/DL 13.0-16.8 HEMATOCRIT (BEAKER) (test knyq=186) 22.8 % 40.0-50.0 MEAN CORPUSCULAR VOLUME (BEAKER) (test tsch=774) 110.0 fL 82.0-98.0 MEAN CORPUSCULAR HEMOGLOBIN (BEAKER) (test 38.2 pg 27.0-33.0 krgj=344) MEAN CORPUSCULAR HEMOGLOBIN CONC (BEAKER) (test 34.6 GM/DL 32.0-36.0 ikxt=810) RED CELL DISTRIBUTION WIDTH (BEAKER) (test 13.5 % 10.3-14.2 bglw=360) PLATELET COUNT (BEAKER) (test dula=975) 61 K/CU MM 150-430 MEAN PLATELET VOLUME (BEAKER) (test tzgv=074) 6.8 fL 6.5-10.5 NUCLEATED RED BLOOD CELLS (BEAKER) (test 0 /100 WBC 0-0 ltaw=443) NEUTROPHILS RELATIVE PERCENT (BEAKER) (test 51 % regj=407) LYMPHOCYTES RELATIVE PERCENT (BEAKER) (test 24 % fwni=428) MONOCYTES RELATIVE PERCENT (BEAKER) (test 18 % tbze=043) EOSINOPHILS RELATIVE PERCENT (BEAKER) (test 7 % fgjc=424) BASOPHILS RELATIVE PERCENT (BEAKER) (test 1 % lbzr=231) NEUTROPHILS ABSOLUTE COUNT (BEAKER) (test 1.76 K/ L 1.80-8.00 tarj=940) LYMPHOCYTES ABSOLUTE COUNT (BEAKER) (test 0.85 K/ L 1.48-4.50 vued=865) MONOCYTES ABSOLUTE COUNT (BEAKER) (test ctkw=384) 0.61 K/ L 0.00-1.30 EOSINOPHILS ABSOLUTE COUNT (BEAKER) (test 0.23 K/ L 0.00-0.50 xuay=166) BASOPHILS ABSOLUTE COUNT (BEAKER) (test gafp=659) 0.02 K/ L 0.00-0.20 0.00PROTHROMBIN [id number] 05:19:00 Test Item Value Reference Range Comments PROTIME (BEAKER) (test vhlf=727) 28.2 seconds 11.7-14.7 INR (BEAKER) (test jiun=465) 2.6 <=5.9 RECOMMENDED COUMADIN/WARFARIN INR THERAPY RANGESSTANDARD DOSE: 2.0 - 3.0 Includes: PROPHYLAXIS forvenous thrombosis, systemic embolization; TREATMENT for venous thrombosis and/or pulmonary embolus.HIGH RISK: Target INR is 2.5-3.5 for patients with mechanical heart valves.BODY FLUID CULTURE + GRAM [id number] 14:14:00 Test Item Value Reference Range Comments CULTURE (BEAKER) (test ukki=8109) No growth GRAM STAIN RESULT (BEAKER) (test 2+ WBCs ftgo=3364) GRAM STAIN RESULT (BEAKER) (test No organisms seen ubce=55134) CBC W/PLT COUNT & AUTO [id number] 10:28:00 Test Item Value Reference Range Comments WHITE BLOOD CELL COUNT (BEAKER) (test yxpo=758) 3.6 K/ L 4.0-10.0 RED BLOOD CELL COUNT (BEAKER) (test mlmq=357) 2.17 M/ L 4.20-5.80 HEMOGLOBIN (BEAKER) (test kivz=406) 7.7 GM/DL 13.0-16.8 HEMATOCRIT (BEAKER) (test wzck=370) 23.8 % 40.0-50.0 MEAN CORPUSCULAR VOLUME (BEAKER) (test tyib=458) 110.0 fL 82.0-98.0 MEAN CORPUSCULAR HEMOGLOBIN (BEAKER) (test 35.3 pg 27.0-33.0 sryc=941) MEAN CORPUSCULAR HEMOGLOBIN CONC (BEAKER) (test 32.1 GM/DL 32.0-36.0 ubgp=320) RED CELL DISTRIBUTION WIDTH (BEAKER) (test 13.7 % 10.3-14.2 aedm=545) PLATELET COUNT (BEAKER) (test pdve=696) 62 K/CU MM 150-430 MEAN PLATELET VOLUME (BEAKER) (test ahsr=710) 6.5 fL 6.5-10.5 NUCLEATED RED BLOOD CELLS (BEAKER) (test 0 /100 WBC 0-0 gzwv=474) NEUTROPHILS RELATIVE PERCENT (BEAKER) (test 58 % gbca=122) LYMPHOCYTES RELATIVE PERCENT (BEAKER) (test 18 % iajg=401) MONOCYTES RELATIVE PERCENT (BEAKER) (test 17 % lqes=009) EOSINOPHILS RELATIVE PERCENT (BEAKER) (test 8 % isea=042) BASOPHILS RELATIVE PERCENT (BEAKER) (test 0 % zgon=582) NEUTROPHILS ABSOLUTE COUNT (BEAKER) (test 2.10 K/ L 1.80-8.00 muim=786) LYMPHOCYTES ABSOLUTE COUNT (BEAKER) (test 0.63 K/ L 1.48-4.50 lkew=815) MONOCYTES ABSOLUTE COUNT (BEAKER) (test rzwg=505) 0.59 K/ L 0.00-1.30 EOSINOPHILS ABSOLUTE COUNT (BEAKER) (test 0.28 K/ L 0.00-0.50 gxnw=753) BASOPHILS ABSOLUTE COUNT (BEAKER) (test zmkw=199) 0.00 K/ L 0.00-0.20 [id number] 10:16:00 Test Item Value Reference Range Comments PROCALCITONIN (BEAKER) (test yncq=8029) < ng/mL <0.05 SEPSIS RISK (ng/mL)Low: 0.05-0.50Intermediate: 0.51-2.00High: & gt;=2.01HEPATIC FUNCTION [id number] 06:26:00 Test Item Value Reference Range Comments TOTAL PROTEIN (BEAKER) (test ybsn=774) 5.6 gm/dL 6.0-8.3 ALBUMIN (BEAKER) (test ozjy=3840) 1.9 g/dL 3.5-5.0 BILIRUBIN TOTAL (BEAKER) (test uejp=316) 4.7 mg/dL 0.2-1.2 BILIRUBIN DIRECT (BEAKER) (test qaqv=575) 2.9 mg/dL 0.1-0.5 ALKALINE PHOSPHATASE (BEAKER) (test vmad=842) 85 U/L 40-150 AST (SGOT) (BEAKER) (test ljzf=187) 53 U/L 5-34 ALT (SGPT) (BEAKER) (test jttz=159) 14 U/L 6-55 Specimen moderately ictericBASIC METABOLIC [id number] 06:26:00 Test Item Value Reference Range Comments SODIUM (BEAKER) (test 134 meq/L 136-145 tgll=691) POTASSIUM (BEAKER) (test 3.8 meq/L 3.5-5.1 xgrm=170) CHLORIDE (BEAKER) (test 107 meq/L 98-107 hdxw=354) CO2 (BEAKER) (test 19 meq/L 22-29 fine=960) BLOOD UREA NITROGEN 8 mg/dL 7-21 (BEAKER) (test wesa=880) CREATININE (BEAKER) (test 0.73 mg/dL 0.57-1.25 wtzn=736) GLUCOSE RANDOM (BEAKER) 73 mg/dL 70-105 (test bxcb=516) CALCIUM (BEAKER) (test 7.2 mg/dL 8.4-10.2 pdpc=492) EGFR (BEAKER) (test 113 mL/min/1.73 sq m ESTIMATED GFR IS NOT hymo=0036) ACCURATE CREATININE CLEARANCE IN PREDICTING GLOMERULAR FILTRATION RATE. ESTIMATED GFR IS NOT APPLICABLE FOR DIALYSIS PATIENTS. Specimen moderately ictericPROTHROMBIN [id number] 06:05:00 Test Item Value Reference Range Comments PROTIME (BEAKER) (test gpzr=562) 30.9 seconds 11.7-14.7 INR (BEAKER) (test hxwi=282) 3.0 <=5.9 RECOMMENDED COUMADIN/WARFARIN INR THERAPY RANGESSTANDARD DOSE: 2.0 - 3.0 Includes: PROPHYLAXIS forvenous thrombosis, systemic embolization; TREATMENT for venous thrombosis and/or pulmonary embolus.HIGH RISK: Target INR is 2.5-3.5 for patients with mechanical heart valves.[id number] 05:54:00 Test Item Value Reference Range Comments PREALBUMIN (BEAKER) (test xemy=168) < mg/dL 14-45 URINE [id number] 12:11:00 Test Item Value Reference Range Comments CULTURE (BEAKER) (test mxfz=3778) No growth VANCOMYCIN LEVEL, [id number] 09:26:00 Test Item Value Reference Range Comments VANCOMYCIN TROUGH (BEAKER) (test oxbx=664) 15.3 ug/mL 10.0-20.0 HEPATIC FUNCTION [id number] 06:17:00 Test Item Value Reference Range Comments TOTAL PROTEIN (BEAKER) (test nfqh=725) 5.6 gm/dL 6.0-8.3 ALBUMIN (BEAKER) (test qwdq=5190) 2.0 g/dL 3.5-5.0 BILIRUBIN TOTAL (BEAKER) (test dyin=678) 4.2 mg/dL 0.2-1.2 BILIRUBIN DIRECT (BEAKER) (test cepu=145) 2.7 mg/dL 0.1-0.5 ALKALINE PHOSPHATASE (BEAKER) (test cxid=877) 98 U/L 40-150 AST (SGOT) (BEAKER) (test xhug=122) 45 U/L 5-34 ALT (SGPT) (BEAKER) (test yrty=939) 12 U/L 6-55 Specimen slightly ictericBASIC METABOLIC [id number] 06:17:00 Test Item Value Reference Range Comments SODIUM (BEAKER) (test 133 meq/L 136-145 zsvl=827) POTASSIUM (BEAKER) (test 3.4 meq/L 3.5-5.1 tspx=097) CHLORIDE (BEAKER) (test 107 meq/L 98-107 daca=978) CO2 (BEAKER) (test 22 meq/L 22-29 llke=685) BLOOD UREA NITROGEN 7 mg/dL 7-21 (BEAKER) (test tkii=006) CREATININE (BEAKER) (test 0.73 mg/dL 0.57-1.25 biec=025) GLUCOSE RANDOM (BEAKER) 87 mg/dL 70-105 (test torg=665) CALCIUM (BEAKER) (test 7.2 mg/dL 8.4-10.2 bskn=651) EGFR (BEAKER) (test 113 mL/min/1.73 sq m ESTIMATED GFR IS NOT vqkw=2018) ACCURATE CREATININE CLEARANCE IN PREDICTING GLOMERULAR FILTRATION RATE. ESTIMATED GFR IS NOT APPLICABLE FOR DIALYSIS PATIENTS. Specimen slightly ictericPROTHROMBIN [id number] 06:04:00 Test Item Value Reference Range Comments PROTIME (BEAKER) (test mdtb=938) 31.7 seconds 11.7-14.7 INR (BEAKER) (test rxgl=457) 3.0 <=5.9 RECOMMENDED COUMADIN/WARFARIN INR THERAPY RANGESSTANDARD DOSE: 2.0 - 3.0 Includes: PROPHYLAXIS forvenous thrombosis, systemic embolization; TREATMENT for venous thrombosis and/or pulmonary embolus.HIGH RISK: Target INR is 2.5-3.5 for patients with mechanical heart valves.VITAMIN B12 AND [id number] 19:36 :00 Test Item Value Reference Range Comments VITAMIN B12 (BEAKER) (test ekcf=682) 1121 pg/mL 213-816 FOLATE (BEAKER) (test lsbw=602) 18.3 ng/mL >=7.0 Effective 09/13/2014: Folate Reference Range ChangeNew: >=7.0 Previous: & gt;=5.4VITAMIN B12 AND [id number] 14:57:00 Test Item Value Reference Range Comments VITAMIN B12 (BEAKER) (test fizz=759) 1325 pg/mL 213-816 FOLATE (BEAKER) (test axfm=623) 8.3 ng/mL >=7.0 Effective 09/13/2014: Folate Reference Range ChangeNew: >=7.0 Previous: & gt;=5.4ANTI-NUCLEAR ANTIBODY (CHERYL)2017-02-03 13:56:00 Test Item Value Reference Range Comments ANTI-NUCLEAR ANTIBODY (CHERYL) (BEAKER) (test Negative Negative pxym=258) HEPATITIS B CORE ANTIBODY, [id number] 12:27:00 Test Item Value Reference Range Comments HEPATITIS B CORE TOTAL ANTIBODY (BEAKER) (test Nonreactive Nonreactive wbpc=944) CRYPTOCOCCAL [id number] 11:25:00 Test Item Value Reference Range Comments CRYPTOCOCCAL ANTIGEN, SERUM (BEAKER) (test Negative Negative, Interference rrqj=1848) HEPATITIS B SURFACE [id number] 11:15:00 Test Item Value Reference Range Comments HEPATITIS B SURFACE ANTIBODY (BEAKER) (test < mIU/mL <8.0 syyp=562) HEPATITIS B SURFACE [id number] 09:53:00 Test Item Value Reference Range Comments HEPATITIS B SURFACE ANTIGEN (2) (BEAKER) (test Nonreactive Nonreactive fgry=2398) HIV-1 ANTIGEN WITH HIV-1/2 [id number] 09:53:00 Test Item Value Reference Range Comments HIV-1 ANTIGEN WITH HIV 1\\T\\2 ANTIBODY (2) Nonreactive Nonreactive (BEAKER) (test zsyv=7076) HEPATIC FUNCTION [id number] 07:01:00 Test Item Value Reference Range Comments TOTAL PROTEIN (BEAKER) (test jwcu=186) 5.5 gm/dL 6.0-8.3 ALBUMIN (BEAKER) (test rzjp=4756) 2.0 g/dL 3.5-5.0 BILIRUBIN TOTAL (BEAKER) (test vdtf=729) 3.8 mg/dL 0.2-1.2 BILIRUBIN DIRECT (BEAKER) (test hkpi=460) 2.5 mg/dL 0.1-0.5 ALKALINE PHOSPHATASE (BEAKER) (test gnta=266) 108 U/L 40-150 AST (SGOT) (BEAKER) (test agmz=836) 40 U/L 5-34 ALT (SGPT) (BEAKER) (test sfgs=475) 10 U/L 6-55 Specimen slightly ictericBASIC METABOLIC [id number] 07:01:00 Test Item Value Reference Range Comments SODIUM (BEAKER) (test 133 meq/L 136-145 rzjg=128) POTASSIUM (BEAKER) (test 3.7 meq/L 3.5-5.1 rcgc=568) CHLORIDE (BEAKER) (test 108 meq/L 98-107 yuif=195) CO2 (BEAKER) (test 20 meq/L 22-29 lrnt=432) BLOOD UREA NITROGEN 7 mg/dL 7-21 (BEAKER) (test vihi=086) CREATININE (BEAKER) (test 0.76 mg/dL 0.57-1.25 yonb=895) GLUCOSE RANDOM (BEAKER) 100 mg/dL 70-105 (test zdho=766) CALCIUM (BEAKER) (test 7.3 mg/dL 8.4-10.2 gdaf=045) EGFR (BEAKER) (test 108 mL/min/1.73 sq m ESTIMATED GFR IS NOT dlpj=0207) ACCURATE CREATININE CLEARANCE IN PREDICTING GLOMERULAR FILTRATION RATE. ESTIMATED GFR IS NOT APPLICABLE FOR DIALYSIS PATIENTS. Specimen slightly ictericC W/PLT COUNT & AUTO [id number] 06:53 :00 Test Item Value Reference Range Comments WHITE BLOOD CELL COUNT (BEAKER) (test zcgu=601) 3.5 K/ L 4.0-10.0 RED BLOOD CELL COUNT (BEAKER) (test gsfq=597) 1.83 M/ L 4.20-5.80 HEMOGLOBIN (BEAKER) (test nbvc=507) 7.3 GM/DL 13.0-16.8 HEMATOCRIT (BEAKER) (test aeqm=993) 19.9 % 40.0-50.0 MEAN CORPUSCULAR VOLUME (BEAKER) (test njvb=344) 109.0 fL 82.0-98.0 MEAN CORPUSCULAR HEMOGLOBIN (BEAKER) (test 39.9 pg 27.0-33.0 coue=635) MEAN CORPUSCULAR HEMOGLOBIN CONC (BEAKER) (test 36.6 GM/DL 32.0-36.0 ckyf=614) RED CELL DISTRIBUTION WIDTH (BEAKER) (test 14.3 % 10.3-14.2 tacz=770) PLATELET COUNT (BEAKER) (test zurj=798) 35 K/CU MM 150-430 MEAN PLATELET VOLUME (BEAKER) (test rtrl=485) 6.6 fL 6.5-10.5 NUCLEATED RED BLOOD CELLS (BEAKER) (test 0 /100 WBC 0-0 wtzf=699) NEUTROPHILS RELATIVE PERCENT (BEAKER) (test 60 % yomd=402) LYMPHOCYTES RELATIVE PERCENT (BEAKER) (test 18 % lhrb=078) MONOCYTES RELATIVE PERCENT (BEAKER) (test 17 % kmnd=626) EOSINOPHILS RELATIVE PERCENT (BEAKER) (test 6 % lckp=479) BASOPHILS RELATIVE PERCENT (BEAKER) (test 0 % mgsu=617) NEUTROPHILS ABSOLUTE COUNT (BEAKER) (test 2.06 K/ L 1.80-8.00 ouec=777) LYMPHOCYTES ABSOLUTE COUNT (BEAKER) (test 0.61 K/ L 1.48-4.50 uwtg=824) MONOCYTES ABSOLUTE COUNT (BEAKER) (test qzyw=610) 0.58 K/ L 0.00-1.30 EOSINOPHILS ABSOLUTE COUNT (BEAKER) (test 0.19 K/ L 0.00-0.50 ixgl=028) BASOPHILS ABSOLUTE COUNT (BEAKER) (test lesj=954) 0.01 K/ L 0.00-0.20 0.00PROTHROMBIN [id number] 06:39:00 Test Item Value Reference Range Comments PROTIME (BEAKER) (test ohdb=804) 30.6 seconds 11.7-14.7 INR (BEAKER) (test ektk=819) 2.9 <=5.9 RECOMMENDED COUMADIN/WARFARIN INR THERAPY RANGESSTANDARD DOSE: 2.0 - 3.0 Includes: PROPHYLAXIS forvenous thrombosis, systemic embolization; TREATMENT for venous thrombosis and/or pulmonary embolus.HIGH RISK: Target INR is 2.5-3.5 for patients with mechanical heart valves.URINALYSIS W/ [id number] 16 :58:00 Test Item Value Reference Range Comments COLOR (BEAKER) (test qpxb=521) Yellow CLARITY (BEAKER) (test iwon=244) Clear SPECIFIC GRAVITY UA (BEAKER) (test 1.025 1.001-1.035 aons=198) PH UA (BEAKER) (test wvyt=283) 7.0 5.0-8.0 PROTEIN UA (BEAKER) (test zmcj=043) Negative Negative GLUCOSE UA (BEAKER) (test cvuc=688) Negative Negative KETONES UA (BEAKER) (test zqxo=658) Negative Negative BILIRUBIN UA (BEAKER) (test eomo=720) Positive Negative BLOOD UA (BEAKER) (test sond=468) Negative Negative NITRITE UA (BEAKER) (test gbhu=859) Negative Negative LEUKOCYTE ESTERASE UA (BEAKER) (test Negative Negative dcoq=505) UROBILINOGEN UA (BEAKER) (test fdua=180) 8.0 mg/dL 0.2-1.0 RBC UA (BEAKER) (test wmpd=626) 0 /HPF WBC UA (BEAKER) (test ddfl=810) 2 /HPF MUCUS (BEAKER) (test infv=9650) Rare HYALINE CASTS (BEAKER) (test gsnt=498) 3 /LPF SOURCE(BEAKER) (test hkcs=8065) Urine, Clean Catch [id number] 13:32:00 Test Item Value Reference Range Comments FERRITIN (BEAKER) (test nbgh=932) 116 ng/mL 5-275 Effective 09/13/2014: Reference Range ChangeNew: Male 5-275 Previous: Male 22-322 Female 5-275 Female 10-291HEPATITIS A ANTIBODY, [id number] 13:19:00 Test Item Value Reference Range Comments HEPATITIS A IGG ANTIBODY (BEAKER) (test xpct=8145) Reactive Nonreactive ALPHA FETOPROTEIN (AFP), TUMOR [id number] 13:17:00 Test Item Value Reference Range Comments ALPHA-FETOPROTEIN (BEAKER) (test kdvo=2140) 4.5 ng/mL <10.0 Effective 09/13/2014: Reference Range ChangeNew: <10.0 Previous: 0.0- 8.0HEPATITIS C [id number] 13:17:00 Test Item Value Reference Range Comments HEPATITIS C ANTIBODY (BEAKER) (test kuqw=336) Nonreactive Nonreactive BODY FLUID CELL COUNT WITH [id number] 13:03:00 Test Item Value Reference Range Comments APPEARANCE FLUID (BEAKER) (test xazo=834) Cloudy Clear COLOR FLUID (BEAKER) (test lave=971) Yellow Colorless, Straw RBC FLUID (BEAKER) (test ahlp=980) 1519 /cu mm <=1 ADJUSTED WBC FLUID (BEAKER) (test oxok=7412) 108 /cu mm <=5 LINING CELLS (BEAKER) (test dtor=3471) 14 /cu mm <=1 NEUTROPHILS FLUID (BEAKER) (test cnhu=5863) 11 % LYMPHS FLUID (BEAKER) (test tarz=082) 30 % MONO/MACROPHAGE FLUID (BEAKER) (test xzxm=025) 59 % EOSINOPHILS FLUID (BEAKER) (test ujhs=289) 0 % BASO FLUID (BEAKER) (test jkml=745) 0 % CONTAINER BODY FLUID (BEAKER) (test srkr=7747) EDTA Tube BASIC METABOLIC [id number] 12:56:00 Test Item Value Reference Range Comments SODIUM (BEAKER) (test 131 meq/L 136-145 dyfn=986) POTASSIUM (BEAKER) (test 4.0 meq/L 3.5-5.1 Specimen moderately sema=291) hemolyzed CHLORIDE (BEAKER) (test 105 meq/L 98-107 xxkz=699) CO2 (BEAKER) (test 18 meq/L 22-29 srfr=855) BLOOD UREA NITROGEN 6 mg/dL 7-21 (BEAKER) (test zume=444) CREATININE (BEAKER) (test 0.72 mg/dL 0.57-1.25 Specimen moderately ufhk=781) hemolyzed GLUCOSE RANDOM (BEAKER) 103 mg/dL 70-105 (test llpg=275) CALCIUM (BEAKER) (test 7.4 mg/dL 8.4-10.2 rdcv=888) EGFR (BEAKER) (test 115 mL/min/1.73 sq m ESTIMATED GFR IS NOT aeyd=4877) ACCURATE CREATININE CLEARANCE IN PREDICTING GLOMERULAR FILTRATION RATE. ESTIMATED GFR IS NOT APPLICABLE FOR DIALYSIS PATIENTS. Specimen moderately ictericIRON, TIBC, % SAT. (WITHOUT FERRITIN)2017-02-02 12:56 :00 Test Item Value Reference Range Comments IRON (BEAKER) (test vkgx=162) 55 ug/dL 40-160 TOTAL IRON BINDING CAPACITY (BEAKER) (test 175 ug/dL 250-450 qsdz=947) IRON % SATURATION (2) (BEAKER) (test txaa=1895) 31 % 20-55 HEPATIC FUNCTION [id number] 12:50:00 Test Item Value Reference Range Comments TOTAL PROTEIN (BEAKER) (test 6.7 gm/dL 6.0-8.3 Specimen moderately hemolyzed pkgx=509) ALBUMIN (BEAKER) (test 2.0 g/dL 3.5-5.0 Specimen moderately hemolyzed zsrx=2462) BILIRUBIN TOTAL (BEAKER) (test 5.1 mg/dL 0.2-1.2 Specimen moderately hemolyzed nptb=882) BILIRUBIN DIRECT (BEAKER) 2.8 mg/dL 0.1-0.5 Specimen moderately hemolyzed (test nqtz=321) ALKALINE PHOSPHATASE (BEAKER) 99 U/L 40-150 (test zwcz=122) AST (SGOT) (BEAKER) (test 62 U/L 5-34 Specimen moderately hemolyzed bbup=892) ALT (SGPT) (BEAKER) (test 15 U/L 6-55 Specimen moderately mdpo=173) hemolyzed Specimen moderately ictericCBC W/PLT COUNT & AUTO [id number] 12: 47:00 Test Item Value Reference Range Comments WHITE BLOOD CELL COUNT (BEAKER) (test glvo=589) 3.3 K/ L 4.0-10.0 RED BLOOD CELL COUNT (BEAKER) (test nymw=284) 2.08 M/ L 4.20-5.80 HEMOGLOBIN (BEAKER) (test cbnq=511) 7.8 GM/DL 13.0-16.8 HEMATOCRIT (BEAKER) (test rvtt=342) 22.9 % 40.0-50.0 MEAN CORPUSCULAR VOLUME (BEAKER) (test ylbl=100) 110.0 fL 82.0-98.0 MEAN CORPUSCULAR HEMOGLOBIN (BEAKER) (test 37.4 pg 27.0-33.0 ilfs=175) MEAN CORPUSCULAR HEMOGLOBIN CONC (BEAKER) (test 34.1 GM/DL 32.0-36.0 ggrb=063) RED CELL DISTRIBUTION WIDTH (BEAKER) (test 15.0 % 10.3-14.2 iyqf=344) PLATELET COUNT (BEAKER) (test ndyh=724) 48 K/CU MM 150-430 MEAN PLATELET VOLUME (BEAKER) (test ndmx=467) 6.6 fL 6.5-10.5 NUCLEATED RED BLOOD CELLS (BEAKER) (test 0 /100 WBC 0-0 wnoc=399) NEUTROPHILS RELATIVE PERCENT (BEAKER) (test 62 % eqbg=552) LYMPHOCYTES RELATIVE PERCENT (BEAKER) (test 17 % edtx=208) MONOCYTES RELATIVE PERCENT (BEAKER) (test 15 % icic=855) EOSINOPHILS RELATIVE PERCENT (BEAKER) (test 6 % lhck=887) BASOPHILS RELATIVE PERCENT (BEAKER) (test 0 % ycao=474) NEUTROPHILS ABSOLUTE COUNT (BEAKER) (test 2.03 K/ L 1.80-8.00 spgk=702) LYMPHOCYTES ABSOLUTE COUNT (BEAKER) (test 0.57 K/ L 1.48-4.50 twqq=377) MONOCYTES ABSOLUTE COUNT (BEAKER) (test vytv=494) 0.48 K/ L 0.00-1.30 EOSINOPHILS ABSOLUTE COUNT (BEAKER) (test 0.19 K/ L 0.00-0.50 zmhn=263) BASOPHILS ABSOLUTE COUNT (BEAKER) (test fnyt=109) 0.01 K/ L 0.00-0.20 0.00PROTHROMBIN [id number] 12:42:00 Test Item Value Reference Range Comments PROTIME (BEAKER) (test qylv=760) 27.0 seconds 11.7-14.7 INR (BEAKER) (test wnrf=766) 2.5 <=5.9 RECOMMENDED COUMADIN/WARFARIN INR THERAPY RANGESSTANDARD DOSE: 2.0 - 3.0 Includes: PROPHYLAXIS forvenous thrombosis, systemic embolization; TREATMENT for venous thrombosis and/or pulmonary embolus.HIGH RISK: Target INR is 2.5-3.5 for patients with mechanical heart valves.ALBUMIN, BODY [id number] 11:46:00 Test Item Value Reference Range Comments ALBUMIN FLUID (BEAKER) (test bnaf=094) 0.5 gm/dL Reference Range: No Normals Assay performance has not been validated for this type of specimen.PROTEIN, BODY [id number] 11:42:00 Test Item Value Reference Range Comments PROTEIN FLUID (BEAKER) (test kfjv=597) 1.3 g/dL Absence of reference range indicates that normals have not been defined.Assay performance has not been validated for this type of specimen.
--- OUTSIDE RECORDS SUMMARY | 2018-10-02 10:17 | XMS REPORT ---
[...] Status Dosage System Date Date Ondansetron HCl [facility] 22387502750 4 MG Orally Active 1 tab every 8 hours as needed for Nausea and vomiting Hydrocortisone ND 98217624024 20 MG Orally AM Active 1 tablet Once a day with food or milk Magnesium Oxide ND 07078964462 400 MG Orally Active 1 tablet BID as needed Rifaximin [facility] [address]-66 550 MG Orally Active 1 tablet Twice a day Pantoprazole ND 82860074215 40 MG Orally Active 1 tablet Sodium Once a day Sodium Chloride ND 60437547696 1 GM Orally TID Active 2 tablets Lactulose ND 63998748147 10 GM/15ML Active 15 ml Orally TID Ondansetron HCl [facility] 82260623048 4 MG Active 1 TAB EVERY 8 HOURS NEEDED FOR NAUSEA AND VOMITING ORALLY 10 DAYS Citalopram [facility] 09735731755 40 MG Orally Active take one Hydrobromide once a day daily Hydrocortisone [facility] 39703895173 10 MG Orally PM Active 1 tablet Once a day with food or milk NuFera [facility] 49248867576 - Orally once a Active 1 tab day Citalopram [facility] 62743065459 10 MG Active TAKE ONE Hydrobromide DAILY Ursodiol [facility] 65436354058 300 MG Orally Active not defined Midodrine HCl [facility] 83636882647 10 MG Orally Active 1 tablet Three times a day Results No Known Results Summary Purpose eClinicalWorks Submission
--- OUTSIDE RECORDS SUMMARY | 2018-10-02 10:17 | XMS REPORT ---
[...] Status Dosage System Date Date Midodrine HCl [facility] 02192007801 10 MG Orally Active 1 tablet Three times a day Pantoprazole [facility] 39688535853 40 MG Orally Active 1 tablet Sodium Once a day Sodium Chloride ND 54869122006 1 GM Orally TID Active 2 tablets Ondansetron HCl ND 19397998813 4 MG Orally Active 1 tab every 8 hours as needed for Nausea and vomiting Hydrocortisone ND 46843765083 20 MG Orally AM Active 1 tablet Once a day with food or milk Ursodiol ND 37008270974 300 MG Orally Active not defined Lactulose ND 46690285698 10 GM/15ML Active 15 ml Orally TID Citalopram [facility] 67375850774 10 MG Active TAKE ONE Hydrobromide DAILY Rifaximin [facility] [address]-77 550 MG Orally Active 1 tablet Twice a day Ondansetron HCl [facility] 01847829847 4 MG Active 1 TAB EVERY 8 HOURS NEEDED FOR NAUSEA AND VOMITING ORALLY 10 DAYS Magnesium Oxide [facility] 52464844455 400 MG Orally Active 1 tablet BID as needed NuFera [facility] 15999206747 - Orally once a Active 1 tab day Hydrocortisone [facility] 95128438868 10 MG Orally PM Active 1 tablet Once a day with food or milk Results No Known Results Summary Purpose eClinicalWorks Submission
[2018-10-02 10:32] LABS: MPV 7.3 fL (7.6-11.3)
[2018-10-02 10:35] LABS: Protime INR 1.68
[2018-10-02 10:47] LABS: Platelet Estimate DECR
--- NOTE | 2018-10-02 11:35 | RAD REPORT ---
EXAM DESCRIPTION: US - Paracentesis Proc Guidance - 10/02/2018 11:25 am CLINICAL HISTORY: ASCITES Ascites COMPARISON: Paracentesis Proc Guidance dated 09/22/2018 FINDINGS: Informed consent was obtained and time-out was performed. Patient's abdomen was prepped and draped in the usual sterile fashion. 1% lidocaine was used for loca l anesthetic purposes. A small skin incision was made along the right abdomen. A paracentesis catheter was guided into the p eroneal cavity under sonographic guidance. A large volume paracentesis was performed. The patient tolerated the procedure well. Patient was administered IV albumin per protocol following the procedure. IMPRESSION: Successful ultrasound-guided paracentesis.
[2018-10-02 12:12] LABS: Absolute Lymphocytes (CBC) 0.7 K/uL (0.7-4.9); Absolute Monocytes 0.7 K/uL (0.1-1.3); Absolute Neutrophil 2.8 K/uL (1.8-8.0); Basophils % 0.3 % (0-1.3); Eosinophils % 5.8 % (0-4.4); Lymphocytes % 15.4 % (15.3-44.8); MPV 7.5 fL (7.6-11.3); Monocytes % 15.8 % (3.3-12.3); RBC Red Blood Cell Count 2.59 M/uL (4.33-5.43)
[2018-10-02 12:23] LABS: Albumin 2.9 g/dL (3.4-5.0); Bilirubin Total 2.6 mg/dL (0.2-1.0); Potassium 4.1 mmol/L (3.5-5.1); Protein, Total 5.7 g/dL (6.4-8.2)
[2018-10-02 14:42] VITALS: TEMP 98; BMI 24.4
[2018-10-02 15:42] VITALS: BP 95/80; O2SAT 99
== END ==
LOC: DS 09:59
PROVIDERS: ATTEND Family Medicine
PROC: 0W9G3ZX Drainage of Peritoneal Cavity, Percutaneous Approach, Diagnostic (ICD-10-PCS; principal; 2018-10-02)
PROC: BW40ZZZ Ultrasonography of Abdomen (ICD-10-PCS; 2018-10-02)
DX: K70.31 Alcoholic cirrhosis of liver with ascites (principal); K72.90 Hepatic failure, unspecified without coma
CPT/HCPCS: 36415; 49083; 80053; 85025; 85049; 85610; 85730; 96365; P9047

== ENCOUNTER 2018-10-08 02:54 | Emergency (ER) | payer MEDICAID ==
--- OUTSIDE RECORDS SUMMARY | 2018-10-08 03:10 | XMS REPORT ---
:1965 [facility] Address [address] [place], [place] [address]mariela Lantigua [address] [place] [id number] Care Team Providers Name Role Phone INGRID JUNIOR Unavailable Unavailable BRANDO AGUILAR Unavailable Unavailable RYANNE LARKIN Unavailable Unavailable BRYAN MUSA Unavailable Unavailable ANDREA DENTON Unavailable Unavailable OWEN AMSON Unavailable Unavailable MARIAA HEATH Unavailable Unavailable JULIO [...] Value Reference Range Comments CULTURE (BEAKER) (test sype=8821) No growth GRAM STAIN RESULT (BEAKER) (test knbr=6289) No WBCs GRAM STAIN RESULT (BEAKER) (test suek=26878) No organisms seen POCT-GLUCOSE [id number] 07:52:00 Test Item Value Reference Range Comments POC-GLUCOSE METER (BEAKER) 115 mg/dL 70-110 TESTED AT [facility] [address] [place] [address] (test hkkd=7578) [facility] [address] [id number] 05:18:00 Test Item Value Reference Range Comments MAGNESIUM (BEAKER) (test ihhc=355) 1.9 mg/dL 1.6-2.6 COMPREHENSIVE METABOLIC [id number] 05:18:00 Test Item Value Reference Range Comments TOTAL PROTEIN (BEAKER) 5.2 gm/dL 6.0-8.3 (test iqxl=130) ALBUMIN (BEAKER) (test 3.4 g/dL 3.5-5.0 uzeg=2991) ALKALINE PHOSPHATASE 113 U/L 40-150 (BEAKER) (test cvlg=265) BILIRUBIN TOTAL (BEAKER) 2.9 mg/dL 0.2-1.2 (test gxvf=777) SODIUM (BEAKER) (test 131 meq/L 136-145 xkus=012) POTASSIUM (BEAKER) (test 4.0 meq/L 3.5-5.1 dldk=773) CHLORIDE (BEAKER) (test 101 meq/L 98-107 qgqu=466) CO2 (BEAKER) (test 21 meq/L 22-29 iswf=316) BLOOD UREA NITROGEN 28 mg/dL 7-21 (BEAKER) (test vmat=688) CREATININE (BEAKER) (test 1.65 mg/dL 0.57-1.25 zerx=613) GLUCOSE RANDOM (BEAKER) 122 mg/dL 70-105 (test bnlg=429) CALCIUM (BEAKER) (test 9.3 mg/dL 8.4-10.2 lpyc=413) AST (SGOT) (BEAKER) (test 15 U/L 5-34 oifc=275) ALT (SGPT) (BEAKER) (test 8 U/L 6-55 vckc=156) EGFR (BEAKER) (test 44 mL/min/1.73 sq m ESTIMATED GFR IS NOT sufh=2943) ACCURATE CREATININE CLEARANCE IN PREDICTING GLOMERULAR FILTRATION RATE. ESTIMATED GFR IS NOT APPLICABLE FOR DIALYSIS PATIENTS. Specimen slightly ictericPROTHROMBIN [id number] 04:48:00 Test Item Value Reference Range Comments PROTIME (BEAKER) (test izeq=135) 20.9 seconds 11.7-14.7 INR (BEAKER) (test alcc=683) 1.8 <=5.9 RECOMMENDED COUMADIN/WARFARIN INR THERAPY RANGESSTANDARD DOSE: 2.0 - 3.0 Includes: PROPHYLAXIS forvenous thrombosis, systemic embolization; TREATMENT for venous thrombosis and/or pulmonary embolus.HIGH RISK: Target INR is 2.5-3.5 for patients with mechanical heart valves.CBC W/PLT COUNT & AUTO [id number] 04:45:00 Test Item Value Reference Range Comments WHITE BLOOD CELL COUNT (BEAKER) (test dpqo=290) 3.4 K/ L 3.5-10.5 RED BLOOD CELL COUNT (BEAKER) (test ftpv=684) 2.55 M/ L 4.63-6.08 HEMOGLOBIN (BEAKER) (test btwr=359) 8.1 GM/DL 13.7-17.5 HEMATOCRIT (BEAKER) (test cwsh=658) 24.0 % 40.1-51.0 MEAN CORPUSCULAR VOLUME (BEAKER) (test fzlj=684) 94.1 fL 79.0-92.2 MEAN CORPUSCULAR HEMOGLOBIN (BEAKER) (test 31.8 pg 25.7-32.2 zhmo=183) MEAN CORPUSCULAR HEMOGLOBIN CONC (BEAKER) (test 33.8 GM/DL 32.3-36.5 zuum=565) RED CELL DISTRIBUTION WIDTH (BEAKER) (test 15.8 % 11.6-14.4 lvnb=607) PLATELET COUNT (BEAKER) (test fqgg=294) 41 K/CU MM 150-450 MEAN PLATELET VOLUME (BEAKER) (test wesm=260) 10.0 fL 9.4-12.4 NUCLEATED RED BLOOD CELLS (BEAKER) (test 0 /100 WBC 0-0 lxij=631) NEUTROPHILS RELATIVE PERCENT (BEAKER) (test 63 % oykc=560) LYMPHOCYTES RELATIVE PERCENT (BEAKER) (test 19 % hxwb=883) MONOCYTES RELATIVE PERCENT (BEAKER) (test 16 % odlp=127) EOSINOPHILS RELATIVE PERCENT (BEAKER) (test 2 % babb=809) BASOPHILS RELATIVE PERCENT (BEAKER) (test 0 % qcoy=548) NEUTROPHILS ABSOLUTE COUNT (BEAKER) (test 2.13 K/ L 1.78-5.38 aomn=843) LYMPHOCYTES ABSOLUTE COUNT (BEAKER) (test 0.62 K/ L 1.32-3.57 rvus=513) MONOCYTES ABSOLUTE COUNT (BEAKER) (test jtpd=922) 0.52 K/ L 0.30-0.82 EOSINOPHILS ABSOLUTE COUNT (BEAKER) (test 0.08 K/ L 0.04-0.54 rayh=866) BASOPHILS ABSOLUTE COUNT (BEAKER) (test yztq=032) 0.00 K/ L 0.01-0.08 IMMATURE GRANULOCYTES-RELATIVE PERCENT (BEAKER) 0 % 0-1 (test oiuk=9078) POCT-GLUCOSE [id number] 21:35:00 Test Item Value Reference Range Comments POC-GLUCOSE METER (BEAKER) 215 mg/dL 70-110 TESTED AT [address] (test evbt=4183) [facility] [address] POCT-GLUCOSE [id number] 18:17:00 Test Item Value Reference Range Comments POC-GLUCOSE METER (BEAKER) 149 mg/dL 70-110 TESTED AT [place] [id number] [facility] [place] (test skeb=7384) [facility] [address] COMPREHENSIVE METABOLIC [id number] 07:34:00 Test Item Value Reference Range Comments TOTAL PROTEIN (BEAKER) 4.7 gm/dL 6.0-8.3 Specimen slightly (test cyfk=328) hemolyzed ALBUMIN (BEAKER) (test 3.0 g/dL 3.5-5.0 Specimen slightly orxb=9566) hemolyzed ALKALINE PHOSPHATASE 107 U/L 40-150 (BEAKER) (test pkcr=951) BILIRUBIN TOTAL (BEAKER) 3.1 mg/dL 0.2-1.2 Specimen slightly (test rnjo=668) hemolyzed SODIUM (BEAKER) (test 125 meq/L 136-145 zota=679) POTASSIUM (BEAKER) (test 4.9 meq/L 3.5-5.1 Specimen slightly kqqn=320) hemolyzed CHLORIDE (BEAKER) (test 96 meq/L 98-107 cleh=060) CO2 (BEAKER) (test 24 meq/L 22-29 duhb=810) BLOOD UREA NITROGEN 30 mg/dL 7-21 (BEAKER) (test ttkn=761) CREATININE (BEAKER) (test 1.61 mg/dL 0.57-1.25 Specimen slightly zxlz=498) hemolyzed GLUCOSE RANDOM (BEAKER) 127 mg/dL 70-105 (test dgun=593) CALCIUM (BEAKER) (test 8.6 mg/dL 8.4-10.2 zwpz=990) AST (SGOT) (BEAKER) (test 17 U/L 5-34 Specimen slightly jfty=165) hemolyzed ALT (SGPT) (BEAKER) (test < U/L 6-55 Specimen slightly quct=973) hemolyzed EGFR (BEAKER) (test 45 mL/min/1.73 sq m ESTIMATED GFR IS NOT kspv=8954) ACCURATE CREATININE CLEARANCE IN PREDICTING GLOMERULAR FILTRATION RATE. ESTIMATED GFR IS NOT APPLICABLE FOR DIALYSIS PATIENTS. Specimen slightly [id number] 06:49:00 Test Item Value Reference Range Comments PHOSPHORUS (BEAKER) (test pdwm=381) 3.0 mg/dL 2.3-4.7 [id number] 06:49:00 Test Item Value Reference Range Comments MAGNESIUM (BEAKER) (test upwm=067) 2.0 mg/dL 1.6-2.6 PROTHROMBIN [id number] 06:39:00 Test Item Value Reference Range Comments PROTIME (BEAKER) (test tita=090) 23.0 seconds 11.7-14.7 INR (BEAKER) (test ppgc=730) 2.0 <=5.9 RECOMMENDED COUMADIN/WARFARIN INR THERAPY RANGESSTANDARD DOSE: 2.0 - 3.0 Includes: PROPHYLAXIS forvenous thrombosis, systemic embolization; TREATMENT for venous thrombosis and/or pulmonary embolus.HIGH RISK: Target INR is 2.5-3.5 for patients with mechanical heart valves.CBC W/PLT COUNT & AUTO [id number] 06:37:00 Test Item Value Reference Range Comments WHITE BLOOD CELL COUNT (BEAKER) (test mffh=403) 3.3 K/ L 3.5-10.5 RED BLOOD CELL COUNT (BEAKER) (test oujf=505) 2.43 M/ L 4.63-6.08 HEMOGLOBIN (BEAKER) (test ualo=953) 7.8 GM/DL 13.7-17.5 HEMATOCRIT (BEAKER) (test cxyb=571) 22.7 % 40.1-51.0 MEAN CORPUSCULAR VOLUME (BEAKER) (test aesi=563) 93.4 fL 79.0-92.2 MEAN CORPUSCULAR HEMOGLOBIN (BEAKER) (test 32.1 pg 25.7-32.2 arxh=684) MEAN CORPUSCULAR HEMOGLOBIN CONC (BEAKER) (test 34.4 GM/DL 32.3-36.5 byvd=745) RED CELL DISTRIBUTION WIDTH (BEAKER) (test 15.7 % 11.6-14.4 clbx=361) PLATELET COUNT (BEAKER) (test pqms=702) 37 K/CU MM 150-450 MEAN PLATELET VOLUME (BEAKER) (test ceme=767) 9.6 fL 9.4-12.4 NUCLEATED RED BLOOD CELLS (BEAKER) (test 0 /100 WBC 0-0 nbyy=629) NEUTROPHILS RELATIVE PERCENT (BEAKER) (test 70 % xfux=895) LYMPHOCYTES RELATIVE PERCENT (BEAKER) (test 16 % rtmz=832) MONOCYTES RELATIVE PERCENT (BEAKER) (test 11 % ufqh=998) EOSINOPHILS RELATIVE PERCENT (BEAKER) (test 2 % isaa=832) BASOPHILS RELATIVE PERCENT (BEAKER) (test 0 % psoj=074) NEUTROPHILS ABSOLUTE COUNT (BEAKER) (test 2.29 K/ L 1.78-5.38 kdnq=277) LYMPHOCYTES ABSOLUTE COUNT (BEAKER) (test 0.51 K/ L 1.32-3.57 sbne=399) MONOCYTES ABSOLUTE COUNT (BEAKER) (test dboq=331) 0.37 K/ L 0.30-0.82 EOSINOPHILS ABSOLUTE COUNT (BEAKER) (test 0.07 K/ L 0.04-0.54 twnw=402) BASOPHILS ABSOLUTE COUNT (BEAKER) (test phqo=884) 0.01 K/ L 0.01-0.08 IMMATURE GRANULOCYTES-RELATIVE PERCENT (BEAKER) 0 % 0-1 (test osie=8291) CALCIUM, [id number] 06:36:00 Test Item Value Reference Range Comments CALCIUM IONIZED (BEAKER) (test egoj=026) 1.00 mmol/L 1.12-1.27 PH, BLOOD (BEAKER) (test fwyd=7489) 7.53 POCT-GLUCOSE [id number] 22:31:00 Test Item Value Reference Range Comments POC-GLUCOSE METER (BEAKER) 185 mg/dL 70-110 TESTED AT [address] (test mhig=6626) [facility] [address] POCT-GLUCOSE [id number] 16:03:00 Test Item Value Reference Range Comments POC-GLUCOSE METER (BEAKER) 166 mg/dL 70-110 TESTED AT [address] (test fpol=3778) [facility] [address] POCT-GLUCOSE [id number] 12:05:00 Test Item Value Reference Range Comments POC-GLUCOSE METER (BEAKER) 175 mg/dL 70-110 TESTED AT [address] (test ltii=0752) [facility] [address] POCT-GLUCOSE [id number] 08:02:00 Test Item Value Reference Range Comments POC-GLUCOSE METER (BEAKER) 162 mg/dL 70-110 TESTED AT [address] (test ffmq=0382) [place] [address] [id number] 03:52:00 Test Item Value Reference Range Comments MAGNESIUM (BEAKER) (test 2.1 mg/dL 1.6-2.6 Specimen slightly hemolyzed clqb=461) [id number] 03:52:00 Test Item Value Reference Range Comments PHOSPHORUS (BEAKER) (test 3.0 mg/dL 2.3-4.7 Specimen slightly hemolyzed eonw=979) COMPREHENSIVE METABOLIC [id number] 03:52:00 Test Item Value Reference Range Comments TOTAL PROTEIN (BEAKER) 4.9 gm/dL 6.0-8.3 Specimen slightly (test bdar=648) hemolyzed ALBUMIN (BEAKER) (test 3.2 g/dL 3.5-5.0 Specimen slightly qwpb=1996) hemolyzed ALKALINE PHOSPHATASE 109 U/L 40-150 (BEAKER) (test qana=769) BILIRUBIN TOTAL (BEAKER) 2.7 mg/dL 0.2-1.2 Specimen slightly (test sqla=769) hemolyzed SODIUM (BEAKER) (test 125 meq/L 136-145 nquz=823) POTASSIUM (BEAKER) (test 4.7 meq/L 3.5-5.1 Specimen slightly htxq=376) hemolyzed CHLORIDE (BEAKER) (test 96 meq/L 98-107 qofm=581) CO2 (BEAKER) (test 23 meq/L 22-29 tmrb=699) BLOOD UREA NITROGEN 27 mg/dL 7-21 (BEAKER) (test nmpl=879) CREATININE (BEAKER) (test 1.86 mg/dL 0.57-1.25 Specimen slightly wyqe=214) hemolyzed GLUCOSE RANDOM (BEAKER) 164 mg/dL 70-105 (test gitp=378) CALCIUM (BEAKER) (test 8.4 mg/dL 8.4-10.2 psgm=749) AST (SGOT) (BEAKER) (test 17 U/L 5-34 Specimen slightly abbp=518) hemolyzed ALT (SGPT) (BEAKER) (test 6 U/L 6-55 Specimen slightly eayr=744) hemolyzed EGFR (BEAKER) (test 38 mL/min/1.73 sq m ESTIMATED GFR IS NOT vcqw=0436) ACCURATE CREATININE CLEARANCE IN PREDICTING GLOMERULAR FILTRATION RATE. ESTIMATED GFR IS NOT APPLICABLE FOR DIALYSIS PATIENTS. Specimen slightly ictericCALCIUM, [id number] 03:13:00 Test Item Value Reference Range Comments CALCIUM IONIZED (BEAKER) (test viod=153) 0.94 mmol/L 1.12-1.27 PH, BLOOD (BEAKER) (test rvid=4087) 7.55 PROTHROMBIN [id number] 03:10:00 Test Item Value Reference Range Comments PROTIME (BEAKER) (test sqhq=855) 22.6 seconds 11.7-14.7 INR (BEAKER) (test kbjo=210) 2.0 <=5.9 RECOMMENDED COUMADIN/WARFARIN INR THERAPY RANGESSTANDARD DOSE: 2.0 - 3.0 Includes: PROPHYLAXIS forvenous thrombosis, systemic embolization; TREATMENT for venous thrombosis and/or pulmonary embolus.HIGH RISK: Target INR is 2.5-3.5 for patients with mechanical heart valves.CBC W/PLT COUNT & AUTO [id number] 03:03:00 Test Item Value Reference Range Comments WHITE BLOOD CELL COUNT (BEAKER) (test vjiz=988) 3.4 K/ L 3.5-10.5 RED BLOOD CELL COUNT (BEAKER) (test kevn=196) 2.46 M/ L 4.63-6.08 HEMOGLOBIN (BEAKER) (test biak=898) 7.8 GM/DL 13.7-17.5 HEMATOCRIT (BEAKER) (test nkpy=886) 23.5 % 40.1-51.0 MEAN CORPUSCULAR VOLUME (BEAKER) (test rqyn=411) 95.5 fL 79.0-92.2 MEAN CORPUSCULAR HEMOGLOBIN (BEAKER) (test 31.7 pg 25.7-32.2 inrn=282) MEAN CORPUSCULAR HEMOGLOBIN CONC (BEAKER) (test 33.2 GM/DL 32.3-36.5 mhns=069) RED CELL DISTRIBUTION WIDTH (BEAKER) (test 15.6 % 11.6-14.4 dioj=979) PLATELET COUNT (BEAKER) (test sfkf=377) 44 K/CU MM 150-450 MEAN PLATELET VOLUME (BEAKER) (test edit=066) 10.6 fL 9.4-12.4 NUCLEATED RED BLOOD CELLS (BEAKER) (test 0 /100 WBC 0-0 umhc=942) NEUTROPHILS RELATIVE PERCENT (BEAKER) (test 79 % zmwj=721) LYMPHOCYTES RELATIVE PERCENT (BEAKER) (test 12 % omcc=575) MONOCYTES RELATIVE PERCENT (BEAKER) (test 8 % dprj=907) EOSINOPHILS RELATIVE PERCENT (BEAKER) (test 0 % iczt=759) BASOPHILS RELATIVE PERCENT (BEAKER) (test 0 % ioxf=892) NEUTROPHILS ABSOLUTE COUNT (BEAKER) (test 2.67 K/ L 1.78-5.38 ubty=978) LYMPHOCYTES ABSOLUTE COUNT (BEAKER) (test 0.41 K/ L 1.32-3.57 jaxe=653) MONOCYTES ABSOLUTE COUNT (BEAKER) (test vwbc=430) 0.27 K/ L 0.30-0.82 EOSINOPHILS ABSOLUTE COUNT (BEAKER) (test 0.01 K/ L 0.04-0.54 vtvz=072) BASOPHILS ABSOLUTE COUNT (BEAKER) (test mweo=766) 0.01 K/ L 0.01-0.08 IMMATURE GRANULOCYTES-RELATIVE PERCENT (BEAKER) 0 % 0-1 (test pork=3412) POCT-GLUCOSE [id number] 22:50:00 Test Item Value Reference Range Comments POC-GLUCOSE METER (BEAKER) 199 mg/dL 70-110 TESTED AT [facility] [address] [facility] [place] (test zzvr=3508) [facility] [address] BODY FLUID CELL COUNT WITH [id number] 21:09:00 Test Item Value Reference Range Comments APPEARANCE FLUID (BEAKER) (test dlpy=867) Clear Clear COLOR FLUID (BEAKER) (test hbnn=560) Yellow Colorless, Straw RBC FLUID (BEAKER) (test bxbl=344) 140 /cu mm <=1 ADJUSTED WBC FLUID (BEAKER) (test umli=4323) 70 /cu mm <=5 LINING CELLS (BEAKER) (test lfpp=5840) 0 /cu mm <=1 NEUTROPHILS FLUID (BEAKER) (test ipxb=2766) 5 % LYMPHS FLUID (BEAKER) (test vjhg=970) 18 % MONO/MACROPHAGE FLUID (BEAKER) (test zapj=153) 77 % EOSINOPHILS FLUID (BEAKER) (test zqzz=626) 0 % BASO FLUID (BEAKER) (test mkip=834) 0 % CONTAINER BODY FLUID (BEAKER) (test waxh=2356) EDTA Tube CORTISOL,60 [id number] 20:10:00 Test Item Value Reference Range Comments CORTISOL BASELINE NETWORKED (BEAKER) (test 5.6 mcg/dL tgkj=8810) CORTISOL 30 MINUTE NETWORKED (BEAKER) (test 13.7 mcg/dL pccn=1341) CORTISOL, 60 MINUTE (BEAKER) (test hzvy=8739) 17.1 ug/dL ACTH STIMULATION TEST INTERPRETATION GUIDELINES(Synonyms: [...] serum cortisollevel 60 minutes after cosyntropin administration.CORTISOL,30 [id number] 19:45:00 Test Item Value Reference Range Comments CORTISOL BASELINE NETWORKED (BEAKER) (test 5.6 mcg/dL nmru=6838) CORTISOL, 30 MINUTE (BEAKER) (test idmq=8049) 13.7 ug/dL ACTH STIMULATION TEST INTERPRETATION GUIDELINES(Synonyms: [...] serum cortisollevel 60 minutes after cosyntropin administration.U/S, [id number] 19:13:00Reason for exam:->therapeuticFINAL REPORT PROCEDURE: Ultrasound- guided paracentesis. INDICATION: Ascites. DESCRIPTION: After obtaining informed written consent, ultrasound scan of the abdomen identified ascites in the right lower quadrant. The overlying skin was prepped and draped in the usual, sterile fashion and local 1% lidocaine anesthesia was administered. A 5 Guyanese catheter was advanced into the peritoneal cavity and 6000 mL of area fluid was removed. The catheter was removed without immediate complication. Samples were sent for analysis. IMPRESSION:Uncomplicated ultrasound-guided paracentesis with 6000 mL of fluid removed. Signed: Stuart Dupree Verified Date/Time: 09/08/2018 19 :13:16 Reading Location: [address] Ultrasound Reading Room Electronically signed by: Claudia WEAVER 09/08/2018 07:13 PMCORTISOL, [id number] 18:54:00 Test Item Value Reference Range Comments CORTISOL, BASELINE (TUNG) (test arwa=4258) 5.6 ug/dL ACTH STIMULATION TEST INTERPRETATION GUIDELINES(Synonyms: [...] study by Mindy et al (NEVAEH 2000,283( 8):5095-45), the ACTH Stimulation Test provides important prognostic [...] serum cortisollevel 60 minutes after cosyntropin administration.POCT-GLUCOSE [id number] 12:49:00 Test Item Value Reference Range Comments POC-GLUCOSE METER (BEAKER) 184 mg/dL 70-110 TESTED AT [address] (test gbmk=5510) [place] [address] POCT-GLUCOSE [id number] 07:56:00 Test Item Value Reference Range Comments POC-GLUCOSE METER (BEAKER) 174 mg/dL 70-110 TESTED AT [address] (test dlso=1319) [place] [address] B-TYPE NATRIURETIC FACTOR (BNP)2018-09-08 05:20:00 Test Item Value Reference Range Comments B-TYPE NATRIURETIC PEPTIDE (BEAKER) (test 900 pg/mL 0-100 nsal=884) [id number] 05:15:00 Test Item Value Reference Range Comments PHOSPHORUS (BEAKER) (test okzo=966) 3.2 mg/dL 2.3-4.7 [id number] 05:15:00 Test Item Value Reference Range Comments MAGNESIUM (BEAKER) (test yuke=420) 2.1 mg/dL 1.6-2.6 COMPREHENSIVE METABOLIC [id number] 05:15:00 Test Item Value Reference Range Comments TOTAL PROTEIN (BEAKER) 4.9 gm/dL 6.0-8.3 (test jwiq=794) ALBUMIN (BEAKER) (test 3.2 g/dL 3.5-5.0 jpzy=5529) ALKALINE PHOSPHATASE 109 U/L 40-150 (BEAKER) (test sskg=134) BILIRUBIN TOTAL (BEAKER) 2.7 mg/dL 0.2-1.2 (test quut=017) SODIUM (BEAKER) (test 128 meq/L 136-145 xesq=015) POTASSIUM (BEAKER) (test 3.9 meq/L 3.5-5.1 ritf=987) CHLORIDE (BEAKER) (test 98 meq/L 98-107 vagn=101) CO2 (BEAKER) (test 23 meq/L 22-29 ncaq=850) BLOOD UREA NITROGEN 27 mg/dL 7-21 (BEAKER) (test xoyn=145) CREATININE (BEAKER) (test 2.17 mg/dL 0.57-1.25 sjhc=576) GLUCOSE RANDOM (BEAKER) 136 mg/dL 70-105 (test znux=403) CALCIUM (BEAKER) (test 8.6 mg/dL 8.4-10.2 gvnu=878) AST (SGOT) (BEAKER) (test 15 U/L 5-34 chcq=137) ALT (SGPT) (BEAKER) (test 7 U/L 6-55 mypb=855) EGFR (BEAKER) (test 32 mL/min/1.73 sq m ESTIMATED GFR IS NOT vffm=1952) ACCURATE CREATININE CLEARANCE IN PREDICTING GLOMERULAR FILTRATION RATE. ESTIMATED GFR IS NOT APPLICABLE FOR DIALYSIS PATIENTS. Specimen slightly ictericPROTHROMBIN [id number] 05:01:00 Test Item Value Reference Range Comments PROTIME (BEAKER) (test xfve=939) 22.0 seconds 11.7-14.7 INR (BEAKER) (test ftud=716) 1.9 <=5.9 RECOMMENDED COUMADIN/WARFARIN INR THERAPY RANGESSTANDARD DOSE: 2.0 - 3.0 Includes: PROPHYLAXIS forvenous thrombosis, systemic embolization; TREATMENT for venous thrombosis and/or pulmonary embolus.HIGH RISK: Target INR is 2.5-3.5 for patients with mechanical heart valves.CBC W/PLT COUNT & AUTO [id number] 04:55:00 Test Item Value Reference Range Comments WHITE BLOOD CELL COUNT (BEAKER) (test xntw=622) 4.3 K/ L 3.5-10.5 RED BLOOD CELL COUNT (BEAKER) (test zvyo=582) 2.46 M/ L 4.63-6.08 HEMOGLOBIN (BEAKER) (test ubxq=740) 7.9 GM/DL 13.7-17.5 HEMATOCRIT (BEAKER) (test sqjl=434) 23.3 % 40.1-51.0 MEAN CORPUSCULAR VOLUME (BEAKER) (test qair=125) 94.7 fL 79.0-92.2 MEAN CORPUSCULAR HEMOGLOBIN (BEAKER) (test 32.1 pg 25.7-32.2 iwik=765) MEAN CORPUSCULAR HEMOGLOBIN CONC (BEAKER) (test 33.9 GM/DL 32.3-36.5 glqg=089) RED CELL DISTRIBUTION WIDTH (BEAKER) (test 15.6 % 11.6-14.4 mvty=606) PLATELET COUNT (BEAKER) (test pkng=540) 43 K/CU MM 150-450 MEAN PLATELET VOLUME (BEAKER) (test qaju=657) 9.6 fL 9.4-12.4 NUCLEATED RED BLOOD CELLS (BEAKER) (test 0 /100 WBC 0-0 asej=573) NEUTROPHILS RELATIVE PERCENT (BEAKER) (test 63 % qrkv=555) LYMPHOCYTES RELATIVE PERCENT (BEAKER) (test 13 % hfqb=037) MONOCYTES RELATIVE PERCENT (BEAKER) (test 19 % rcqt=044) EOSINOPHILS RELATIVE PERCENT (BEAKER) (test 5 % atbm=461) BASOPHILS RELATIVE PERCENT (BEAKER) (test 0 % wkbq=481) NEUTROPHILS ABSOLUTE COUNT (BEAKER) (test 2.72 K/ L 1.78-5.38 vcyc=035) LYMPHOCYTES ABSOLUTE COUNT (BEAKER) (test 0.55 K/ L 1.32-3.57 ukij=860) MONOCYTES ABSOLUTE COUNT (BEAKER) (test gcep=159) 0.81 K/ L 0.30-0.82 EOSINOPHILS ABSOLUTE COUNT (BEAKER) (test 0.21 K/ L 0.04-0.54 lriw=224) BASOPHILS ABSOLUTE COUNT (BEAKER) (test qxoe=827) 0.01 K/ L 0.01-0.08 IMMATURE GRANULOCYTES-RELATIVE PERCENT (BEAKER) 0 % 0-1 (test gqye=5403) POCT-GLUCOSE [id number] 23:33:00 Test Item Value Reference Range Comments POC-GLUCOSE METER (BEAKER) 156 mg/dL 70-110 TESTED AT [facility] [address] (test ncfs=8895) [facility] [address] POCT-GLUCOSE [id number] 18:09:00 Test Item Value Reference Range Comments POC-GLUCOSE METER (BEAKER) 170 mg/dL 70-110 TESTED AT [address] (test jvdo=0689) [facility] [id number] POCT-GLUCOSE [id number] 12:01:00 Test Item Value Reference Range Comments POC-GLUCOSE METER (BEAKER) 181 mg/dL 70-110 TESTED AT [address] (test xibc=7681) [facility] [address] PROTHROMBIN [id number] 08:17:00 Test Item Value Reference Range Comments PROTIME (BEAKER) (test lbmh=319) 21.9 seconds 11.7-14.7 INR (BEAKER) (test fcwq=557) 1.9 <=5.9 RECOMMENDED COUMADIN/WARFARIN INR THERAPY RANGESSTANDARD DOSE: 2.0 - 3.0 Includes: PROPHYLAXIS forvenous thrombosis, systemic embolization; TREATMENT for venous thrombosis and/or pulmonary embolus.HIGH RISK: Target INR is 2.5-3.5 for patients with mechanical heart valves.POCT-GLUCOSE [id number] 08:07:00 Test Item Value Reference Range Comments POC-GLUCOSE METER (BEAKER) 205 mg/dL 70-110 TESTED AT [address] (test zabr=9697) [facility] [address] COMPREHENSIVE METABOLIC [id number] 07:29:00 Test Item Value Reference Range Comments TOTAL PROTEIN (BEAKER) 4.9 gm/dL 6.0-8.3 (test mdsc=433) ALBUMIN (BEAKER) (test 3.3 g/dL 3.5-5.0 qsvm=0917) ALKALINE PHOSPHATASE 106 U/L 40-150 (BEAKER) (test rysz=227) BILIRUBIN TOTAL (BEAKER) 2.6 mg/dL 0.2-1.2 (test vjdz=225) SODIUM (BEAKER) (test 129 meq/L 136-145 qecz=439) POTASSIUM (BEAKER) (test 4.9 meq/L 3.5-5.1 kzzj=354) CHLORIDE (BEAKER) (test 98 meq/L 98-107 cymz=602) CO2 (BEAKER) (test 23 meq/L 22-29 jsem=569) BLOOD UREA NITROGEN 28 mg/dL 7-21 (BEAKER) (test pfnh=948) CREATININE (BEAKER) (test 2.31 mg/dL 0.57-1.25 akbi=614) GLUCOSE RANDOM (BEAKER) 172 mg/dL 70-105 (test pban=107) CALCIUM (BEAKER) (test 8.5 mg/dL 8.4-10.2 qlbf=587) AST (SGOT) (BEAKER) (test 15 U/L 5-34 gczd=915) ALT (SGPT) (BEAKER) (test 6 U/L 6-55 zgwf=635) EGFR (BEAKER) (test 30 mL/min/1.73 sq m ESTIMATED GFR IS NOT pxwr=0309) ACCURATE CREATININE CLEARANCE IN PREDICTING GLOMERULAR FILTRATION RATE. ESTIMATED GFR IS NOT APPLICABLE FOR DIALYSIS PATIENTS. Specimen slightly ictericCBC W/PLT COUNT & AUTO [id number] 07:11 :00 Test Item Value Reference Range Comments WHITE BLOOD CELL COUNT (BEAKER) (test wnyz=859) 4.5 K/ L 3.5-10.5 RED BLOOD CELL COUNT (BEAKER) (test boox=617) 2.47 M/ L 4.63-6.08 HEMOGLOBIN (BEAKER) (test sohd=815) 7.8 GM/DL 13.7-17.5 HEMATOCRIT (BEAKER) (test unzs=394) 23.3 % 40.1-51.0 MEAN CORPUSCULAR VOLUME (BEAKER) (test fqmh=589) 94.3 fL 79.0-92.2 MEAN CORPUSCULAR HEMOGLOBIN (BEAKER) (test 31.6 pg 25.7-32.2 sojq=736) MEAN CORPUSCULAR HEMOGLOBIN CONC (BEAKER) (test 33.5 GM/DL 32.3-36.5 jeuk=261) RED CELL DISTRIBUTION WIDTH (BEAKER) (test 15.4 % 11.6-14.4 shll=490) PLATELET COUNT (BEAKER) (test hwxq=223) 43 K/CU MM 150-450 MEAN PLATELET VOLUME (BEAKER) (test dcbi=556) 8.7 fL 9.4-12.4 NUCLEATED RED BLOOD CELLS (BEAKER) (test 0 /100 WBC 0-0 ccbk=823) NEUTROPHILS RELATIVE PERCENT (BEAKER) (test 64 % bqdq=739) LYMPHOCYTES RELATIVE PERCENT (BEAKER) (test 11 % ctsv=246) MONOCYTES RELATIVE PERCENT (BEAKER) (test 20 % iori=550) EOSINOPHILS RELATIVE PERCENT (BEAKER) (test 4 % tdxc=152) BASOPHILS RELATIVE PERCENT (BEAKER) (test 0 % ghhm=027) NEUTROPHILS ABSOLUTE COUNT (BEAKER) (test 2.86 K/ L 1.78-5.38 qcay=930) LYMPHOCYTES ABSOLUTE COUNT (BEAKER) (test 0.49 K/ L 1.32-3.57 hlhl=688) MONOCYTES ABSOLUTE COUNT (BEAKER) (test rxyw=746) 0.90 K/ L 0.30-0.82 EOSINOPHILS ABSOLUTE COUNT (BEAKER) (test 0.18 K/ L 0.04-0.54 wzpl=726) BASOPHILS ABSOLUTE COUNT (BEAKER) (test paht=303) 0.02 K/ L 0.01-0.08 IMMATURE GRANULOCYTES-RELATIVE PERCENT (BEAKER) 0 % 0-1 (test rddk=4296) POCT-GLUCOSE [id number] 22:31:00 Test Item Value Reference Range Comments POC-GLUCOSE METER (BEAKER) 161 mg/dL 70-110 TESTED AT [address] (test gtqc=7495) [place] [id number] POCT-GLUCOSE [id number] 16:31:00 Test Item Value Reference Range Comments POC-GLUCOSE METER (BEAKER) 135 mg/dL 70-110 TESTED AT [address] (test ijvh=8165) [place] [id number] POCT-GLUCOSE [id number] 12:16:00 Test Item Value Reference Range Comments POC-GLUCOSE METER (BEAKER) 144 mg/dL 70-110 TESTED AT [address] [address] (test jwka=2617) [facility] [address] POCT-GLUCOSE [id number] 07:53:00 Test Item Value Reference Range Comments POC-GLUCOSE METER (BEAKER) 93 mg/dL 70-110 TESTED AT [address] (test hvbe=8545) [facility] [address] COMPREHENSIVE METABOLIC [id number] 06:55:00 Test Item Value Reference Range Comments TOTAL PROTEIN (BEAKER) 4.8 gm/dL 6.0-8.3 (test iutd=033) ALBUMIN (BEAKER) (test 3.3 g/dL 3.5-5.0 wxwa=5001) ALKALINE PHOSPHATASE 103 U/L 40-150 (BEAKER) (test zprh=789) BILIRUBIN TOTAL (BEAKER) 2.7 mg/dL 0.2-1.2 (test ufii=332) SODIUM (BEAKER) (test 125 meq/L 136-145 pqfb=492) POTASSIUM (BEAKER) (test 4.6 meq/L 3.5-5.1 eyvl=820) CHLORIDE (BEAKER) (test 96 meq/L 98-107 jwvm=901) CO2 (BEAKER) (test 22 meq/L 22-29 eweg=215) BLOOD UREA NITROGEN 30 mg/dL 7-21 (BEAKER) (test vkks=264) CREATININE (BEAKER) (test 2.01 mg/dL 0.57-1.25 isdy=405) GLUCOSE RANDOM (BEAKER) 88 mg/dL 70-105 (test scay=864) CALCIUM (BEAKER) (test 8.5 mg/dL 8.4-10.2 wpbo=971) AST (SGOT) (BEAKER) (test 17 U/L 5-34 cjva=367) ALT (SGPT) (BEAKER) (test 7 U/L 6-55 dlwi=220) EGFR (BEAKER) (test 35 mL/min/1.73 sq m ESTIMATED GFR IS NOT kvzz=6244) ACCURATE CREATININE CLEARANCE IN PREDICTING GLOMERULAR FILTRATION RATE. ESTIMATED GFR IS NOT APPLICABLE FOR DIALYSIS PATIENTS. Specimen slightly ictericPROTHROMBIN [id number] 06:10:00 Test Item Value Reference Range Comments PROTIME (BEAKER) (test mavq=708) 23.2 seconds 11.7-14.7 INR (BEAKER) (test ahvt=605) 2.1 <=5.9 RECOMMENDED COUMADIN/WARFARIN INR THERAPY RANGESSTANDARD DOSE: 2.0 - 3.0 Includes: PROPHYLAXIS forvenous thrombosis, systemic embolization; TREATMENT for venous thrombosis and/or pulmonary embolus.HIGH RISK: Target INR is 2.5-3.5 for patients with mechanical heart valves.POCT-GLUCOSE [id number] 22:42:00 Test Item Value Reference Range Comments POC-GLUCOSE METER (BEAKER) 124 mg/dL 70-110 TESTED AT [address] (test syca=5099) [facility] [address] POCT-GLUCOSE [id number] 17:04:00 Test Item Value Reference Range Comments POC-GLUCOSE METER (BEAKER) 86 mg/dL 70-110 TESTED AT [address] (test utqw=5342) [facility] [address] POCT-GLUCOSE [id number] 12:08:00 Test Item Value Reference Range Comments POC-GLUCOSE METER (BEAKER) 159 mg/dL 70-110 TESTED AT [facility] [address] [place] (test skgn=6622) [facility] [address] [id number] 08:39:00 Test Item Value Reference Range Comments PHOSPHORUS (BEAKER) (test xrgt=003) 3.9 mg/dL 2.3-4.7 [id number] 08:39:00 Test Item Value Reference Range Comments MAGNESIUM (BEAKER) (test qvtj=600) 2.1 mg/dL 1.6-2.6 COMPREHENSIVE METABOLIC [id number] 08:39:00 Test Item Value Reference Range Comments TOTAL PROTEIN (BEAKER) 5.2 gm/dL 6.0-8.3 (test dcdw=516) ALBUMIN (BEAKER) (test 3.5 g/dL 3.5-5.0 vfjh=4884) ALKALINE PHOSPHATASE 110 U/L 40-150 (BEAKER) (test ccgp=567) BILIRUBIN TOTAL (BEAKER) 2.4 mg/dL 0.2-1.2 (test kogm=673) SODIUM (BEAKER) (test 122 meq/L 136-145 nsdz=811) POTASSIUM (BEAKER) (test 4.5 meq/L 3.5-5.1 tsio=842) CHLORIDE (BEAKER) (test 94 meq/L 98-107 orcx=640) CO2 (BEAKER) (test 20 meq/L 22-29 nzwn=276) BLOOD UREA NITROGEN 31 mg/dL 7-21 (BEAKER) (test jibe=887) CREATININE (BEAKER) (test 1.94 mg/dL 0.57-1.25 sxom=602) GLUCOSE RANDOM (BEAKER) 127 mg/dL 70-105 (test mklp=472) CALCIUM (BEAKER) (test 8.6 mg/dL 8.4-10.2 drlr=134) AST (SGOT) (BEAKER) (test 17 U/L 5-34 spvl=278) ALT (SGPT) (BEAKER) (test 8 U/L 6-55 sotb=635) EGFR (BEAKER) (test 36 mL/min/1.73 sq m ESTIMATED GFR IS NOT bhnx=0835) ACCURATE CREATININE CLEARANCE IN PREDICTING GLOMERULAR FILTRATION RATE. ESTIMATED GFR IS NOT APPLICABLE FOR DIALYSIS PATIENTS. Specimen slightly ictericPOCT-GLUCOSE [id number] 07:49:00 Test Item Value Reference Range Comments POC-GLUCOSE METER (BEAKER) 132 mg/dL 70-110 TESTED AT [facility] [address] [place] (test rjwm=6424) [place] [address] CALCIUM, [id number] 06:35:00 Test Item Value Reference Range Comments CALCIUM IONIZED (BEAKER) (test etks=490) 1.08 mmol/L 1.12-1.27 PH, BLOOD (BEAKER) (test uorw=4236) 7.39 CBC W/PLT COUNT & AUTO [id number] 05:56:00 Test Item Value Reference Range Comments WHITE BLOOD CELL COUNT (BEAKER) (test bxbm=911) 4.1 K/ L 3.5-10.5 RED BLOOD CELL COUNT (BEAKER) (test orou=073) 2.67 M/ L 4.63-6.08 HEMOGLOBIN (BEAKER) (test luem=336) 8.3 GM/DL 13.7-17.5 HEMATOCRIT (BEAKER) (test lcrb=437) 24.7 % 40.1-51.0 MEAN CORPUSCULAR VOLUME (BEAKER) (test vycn=713) 92.5 fL 79.0-92.2 MEAN CORPUSCULAR HEMOGLOBIN (BEAKER) (test 31.1 pg 25.7-32.2 jdok=573) MEAN CORPUSCULAR HEMOGLOBIN CONC (BEAKER) (test 33.6 GM/DL 32.3-36.5 yzvx=744) RED CELL DISTRIBUTION WIDTH (BEAKER) (test 15.0 % 11.6-14.4 psgi=241) PLATELET COUNT (BEAKER) (test fyim=030) 58 K/CU MM 150-450 MEAN PLATELET VOLUME (BEAKER) (test ilxe=952) 9.3 fL 9.4-12.4 NUCLEATED RED BLOOD CELLS (BEAKER) (test 0 /100 WBC 0-0 alnq=435) NEUTROPHILS RELATIVE PERCENT (BEAKER) (test 64 % muiu=614) LYMPHOCYTES RELATIVE PERCENT (BEAKER) (test 12 % oecz=181) MONOCYTES RELATIVE PERCENT (BEAKER) (test 18 % deac=761) EOSINOPHILS RELATIVE PERCENT (BEAKER) (test 5 % ffun=233) BASOPHILS RELATIVE PERCENT (BEAKER) (test 0 % brop=642) NEUTROPHILS ABSOLUTE COUNT (BEAKER) (test 2.63 K/ L 1.78-5.38 xgqd=119) LYMPHOCYTES ABSOLUTE COUNT (BEAKER) (test 0.51 K/ L 1.32-3.57 kvzo=874) MONOCYTES ABSOLUTE COUNT (BEAKER) (test sgtx=240) 0.74 K/ L 0.30-0.82 EOSINOPHILS ABSOLUTE COUNT (BEAKER) (test 0.21 K/ L 0.04-0.54 vacp=561) BASOPHILS ABSOLUTE COUNT (BEAKER) (test nnqo=046) 0.01 K/ L 0.01-0.08 IMMATURE GRANULOCYTES-RELATIVE PERCENT (BEAKER) 1 % 0-1 (test lpml=3904) PROTHROMBIN [id number] 05:49:00 Test Item Value Reference Range Comments PROTIME (BEAKER) (test pgki=951) 20.4 seconds 11.7-14.7 INR (BEAKER) (test xoty=675) 1.8 <=5.9 RECOMMENDED COUMADIN/WARFARIN INR THERAPY RANGESSTANDARD DOSE: 2.0 - 3.0 Includes: PROPHYLAXIS forvenous thrombosis, systemic embolization; TREATMENT for venous thrombosis and/or pulmonary embolus.HIGH RISK: Target INR is 2.5-3.5 for patients with mechanical heart valves.[id number] 22:31:00 Test Item Value Reference Range Comments SODIUM (BEAKER) (test wefn=471) 123 meq/L 136-145 POTASSIUM (BEAKER) (test vrrs=622) 4.5 meq/L 3.5-5.1 CHLORIDE (BEAKER) (test uqsq=341) 94 meq/L 98-107 CO2 (BEAKER) (test oiah=629) 22 meq/L 22-29 Call results "at a decent hour" to [id number]-GLUCOSE [id number] 21: 48:00 Test Item Value Reference Range Comments POC-GLUCOSE METER (BEAKER) 144 mg/dL 70-110 TESTED AT [facility] [address] [place] (test frci=1663) [facility] [address] [id number] 17:27:00 Test Item Value Reference Range Comments CORTISOL, TOTAL (BEAKER) (test klyp=1958) 1.9 ug/dL 3.7-19.4 [id number] 17:03:00 Test Item Value Reference Range Comments SODIUM (BEAKER) (test ykwm=825) 123 meq/L 136-145 POTASSIUM (BEAKER) (test bvug=480) 4.7 meq/L 3.5-5.1 CHLORIDE (BEAKER) (test uulq=345) 95 meq/L 98-107 CO2 (BEAKER) (test pmrb=386) 21 meq/L 22-29 Call resultsPOCT-GLUCOSE [id number] 16:48:00 Test Item Value Reference Range Comments POC-GLUCOSE METER (BEAKER) 117 mg/dL 70-110 TESTED AT [address] (test giwp=8627) [place] [address] SODIUM, RANDOM [id number] 15:12:00 Test Item Value Reference Range Comments SODIUM URINE (BEAKER) (test aehp=772) < meq/L Reference Range: No NormalsCREATININE, RANDOM [id number] 15:11:00 Test Item Value Reference Range Comments CREATININE URINE (BEAKER) (test xatx=781) 87.5 mg/dL Reference Range: No NormalsOSMOLALITY, [id number] 15:05:00 Test Item Value Reference Range Comments OSMOLALITY URINE (BEAKER) (test hcij=342) 234 mOsm/kg 40-1,400 POCT-GLUCOSE [id number] 13:14:00 Test Item Value Reference Range Comments POC-GLUCOSE METER (BEAKER) 129 mg/dL 70-110 TESTED AT [address] (test wkfv=6223) [place] [address] [id number] 10:06:00 Test Item Value Reference Range Comments SODIUM (BEAKER) (test mdmn=546) 120 meq/L 136-145 POTASSIUM (BEAKER) (test ciwv=078) 4.6 meq/L 3.5-5.1 CHLORIDE (BEAKER) (test anqw=330) 93 meq/L 98-107 CO2 (BEAKER) (test cqmo=885) 23 meq/L 22-29 Call [id number] 09:01:00 Test Item Value Reference Range Comments POC-GLUCOSE METER (BEAKER) 97 mg/dL 70-110 TESTED AT [facility] [address] (test eyfp=4702) [facility] [address] COMPREHENSIVE METABOLIC [id number] 08:40:00 Test Item Value Reference Range Comments TOTAL PROTEIN (BEAKER) 5.2 gm/dL 6.0-8.3 (test lqir=833) ALBUMIN (BEAKER) (test 3.7 g/dL 3.5-5.0 pznh=1434) ALKALINE PHOSPHATASE 104 U/L 40-150 (BEAKER) (test hclk=136) BILIRUBIN TOTAL (BEAKER) 3.3 mg/dL 0.2-1.2 (test ojnq=603) SODIUM (BEAKER) (test 120 meq/L 136-145 kwtd=184) POTASSIUM (BEAKER) (test 4.8 meq/L 3.5-5.1 qltp=323) CHLORIDE (BEAKER) (test 93 meq/L 98-107 awsi=247) CO2 (BEAKER) (test 20 meq/L 22-29 ramz=854) BLOOD UREA NITROGEN 31 mg/dL 7-21 (BEAKER) (test lkpf=259) CREATININE (BEAKER) (test 1.72 mg/dL 0.57-1.25 pbop=041) GLUCOSE RANDOM (BEAKER) 99 mg/dL 70-105 (test vpsd=026) CALCIUM (BEAKER) (test 8.9 mg/dL 8.4-10.2 jdor=097) AST (SGOT) (BEAKER) (test 16 U/L 5-34 ylbt=695) ALT (SGPT) (BEAKER) (test < U/L 6-55 azik=722) EGFR (BEAKER) (test 42 mL/min/1.73 sq m ESTIMATED GFR IS NOT nfto=1205) ACCURATE CREATININE CLEARANCE IN PREDICTING GLOMERULAR FILTRATION RATE. ESTIMATED GFR IS NOT APPLICABLE FOR DIALYSIS PATIENTS. Specimen slightly [id number] 08:14:00 Test Item Value Reference Range Comments PHOSPHORUS (BEAKER) (test gcsq=074) 3.8 mg/dL 2.3-4.7 [id number] 08:14:00 Test Item Value Reference Range Comments MAGNESIUM (BEAKER) (test blvp=196) 2.1 mg/dL 1.6-2.6 CALCIUM, [id number] 06:56:00 Test Item Value Reference Range Comments CALCIUM IONIZED (BEAKER) (test hise=018) 1.12 mmol/L 1.12-1.27 PH, BLOOD (BEAKER) (test smot=8864) 7.36 CBC W/PLT COUNT & AUTO [id number] 06:38:00 Test Item Value Reference Range Comments WHITE BLOOD CELL COUNT (BEAKER) (test epqh=622) 4.9 K/ L 3.5-10.5 RED BLOOD CELL COUNT (BEAKER) (test nlrz=339) 2.69 M/ L 4.63-6.08 HEMOGLOBIN (BEAKER) (test yttj=941) 8.3 GM/DL 13.7-17.5 HEMATOCRIT (BEAKER) (test qvrf=429) 24.8 % 40.1-51.0 MEAN CORPUSCULAR VOLUME (BEAKER) (test utzs=931) 92.2 fL 79.0-92.2 MEAN CORPUSCULAR HEMOGLOBIN (BEAKER) (test 30.9 pg 25.7-32.2 dfsa=436) MEAN CORPUSCULAR HEMOGLOBIN CONC (BEAKER) (test 33.5 GM/DL 32.3-36.5 apau=405) RED CELL DISTRIBUTION WIDTH (BEAKER) (test 14.8 % 11.6-14.4 xvyf=186) PLATELET COUNT (BEAKER) (test wgmt=891) 65 K/CU MM 150-450 MEAN PLATELET VOLUME (BEAKER) (test jpdr=799) 9.1 fL 9.4-12.4 NUCLEATED RED BLOOD CELLS (BEAKER) (test 0 /100 WBC 0-0 noif=766) NEUTROPHILS RELATIVE PERCENT (BEAKER) (test 67 % ejor=791) LYMPHOCYTES RELATIVE PERCENT (BEAKER) (test 10 % hqqv=763) MONOCYTES RELATIVE PERCENT (BEAKER) (test 17 % qrcj=885) EOSINOPHILS RELATIVE PERCENT (BEAKER) (test 5 % hpec=088) BASOPHILS RELATIVE PERCENT (BEAKER) (test 0 % pnwo=296) NEUTROPHILS ABSOLUTE COUNT (BEAKER) (test 3.32 K/ L 1.78-5.38 ncyc=204) LYMPHOCYTES ABSOLUTE COUNT (BEAKER) (test 0.51 K/ L 1.32-3.57 bhzr=803) MONOCYTES ABSOLUTE COUNT (BEAKER) (test csai=861) 0.83 K/ L 0.30-0.82 EOSINOPHILS ABSOLUTE COUNT (BEAKER) (test 0.23 K/ L 0.04-0.54 vzmf=393) BASOPHILS ABSOLUTE COUNT (BEAKER) (test aoeu=198) 0.02 K/ L 0.01-0.08 IMMATURE GRANULOCYTES-RELATIVE PERCENT (BEAKER) 1 % 0-1 (test acxj=7559) [id number] 06:35:00 Test Item Value Reference Range Comments PARTIAL THROMBOPLASTIN TIME (BEAKER) (test 52.6 seconds 22.5-36.0 zobu=361) PROTHROMBIN [id number] 06:34:00 Test Item Value Reference Range Comments PROTIME (BEAKER) (test rhor=692) 21.6 seconds 11.7-14.7 INR (BEAKER) (test pjmu=730) 1.9 <=5.9 RECOMMENDED COUMADIN/WARFARIN INR THERAPY RANGESSTANDARD DOSE: 2.0 - 3.0 Includes: PROPHYLAXIS forvenous thrombosis, systemic embolization; TREATMENT for venous thrombosis and/or pulmonary embolus.HIGH RISK: Target INR is 2.5-3.5 for patients with mechanical heart valves.POCT-GLUCOSE [id number] 22:00:00 Test Item Value Reference Range Comments POC-GLUCOSE METER (BEAKER) 114 mg/dL 70-110 TESTED AT [address] (test dwix=3437) [place] [address] POCT-GLUCOSE [id number] 17:57:00 Test Item Value Reference Range Comments POC-GLUCOSE METER (BEAKER) 139 mg/dL 70-110 TESTED AT [address] (test vrid=0938) [place] [address] POCT-GLUCOSE [id number] 11:57:00 Test Item Value Reference Range Comments POC-GLUCOSE METER (BEAKER) 146 mg/dL 70-110 TESTED AT [address] (test jznj=2674) [place] [address] POCT-GLUCOSE [id number] 09:16:00 Test Item Value Reference Range Comments POC-GLUCOSE METER (BEAKER) 109 mg/dL 70-110 TESTED AT [address] (test vanm=5489) [place] [address] COMPREHENSIVE METABOLIC [id number] 05:53:00 Test Item Value Reference Range Comments TOTAL PROTEIN (BEAKER) 5.2 gm/dL 6.0-8.3 (test uihd=594) ALBUMIN (BEAKER) (test 3.8 g/dL 3.5-5.0 mwze=7013) ALKALINE PHOSPHATASE 110 U/L 40-150 (BEAKER) (test efkx=890) BILIRUBIN TOTAL (BEAKER) 4.5 mg/dL 0.2-1.2 (test xvxp=602) SODIUM (BEAKER) (test 124 meq/L 136-145 fkpp=300) POTASSIUM (BEAKER) (test 4.5 meq/L 3.5-5.1 ttyj=682) CHLORIDE (BEAKER) (test 95 meq/L 98-107 qmsh=089) CO2 (BEAKER) (test 22 meq/L 22-29 yclv=181) BLOOD UREA NITROGEN 30 mg/dL 7-21 (BEAKER) (test xuyl=690) CREATININE (BEAKER) (test 1.67 mg/dL 0.57-1.25 aull=330) GLUCOSE RANDOM (BEAKER) 99 mg/dL 70-105 (test jmio=420) CALCIUM (BEAKER) (test 9.0 mg/dL 8.4-10.2 isid=641) AST (SGOT) (BEAKER) (test 16 U/L 5-34 jzde=000) ALT (SGPT) (BEAKER) (test < U/L 6-55 gclg=763) EGFR (BEAKER) (test 43 mL/min/1.73 sq m ESTIMATED GFR IS NOT xjoj=4672) ACCURATE CREATININE CLEARANCE IN PREDICTING GLOMERULAR FILTRATION RATE. ESTIMATED GFR IS NOT APPLICABLE FOR DIALYSIS PATIENTS. Specimen slightly [id number] 05:50:00 Test Item Value Reference Range Comments PHOSPHORUS (BEAKER) (test wajh=481) 3.7 mg/dL 2.3-4.7 [id number] 05:50:00 Test Item Value Reference Range Comments MAGNESIUM (BEAKER) (test djsn=458) 2.1 mg/dL 1.6-2.6 CBC W/PLT COUNT & AUTO [id number] 05:28:00 Test Item Value Reference Range Comments WHITE BLOOD CELL COUNT (BEAKER) (test vhlo=630) 4.0 K/ L 3.5-10.5 RED BLOOD CELL COUNT (BEAKER) (test cprf=191) 2.80 M/ L 4.63-6.08 HEMOGLOBIN (BEAKER) (test bakv=137) 8.7 GM/DL 13.7-17.5 HEMATOCRIT (BEAKER) (test kutr=660) 25.8 % 40.1-51.0 MEAN CORPUSCULAR VOLUME (BEAKER) (test oenw=961) 92.1 fL 79.0-92.2 MEAN CORPUSCULAR HEMOGLOBIN (BEAKER) (test 31.1 pg 25.7-32.2 vqln=023) MEAN CORPUSCULAR HEMOGLOBIN CONC (BEAKER) (test 33.7 GM/DL 32.3-36.5 bbli=891) RED CELL DISTRIBUTION WIDTH (BEAKER) (test 14.7 % 11.6-14.4 pvgj=432) PLATELET COUNT (BEAKER) (test zzfp=635) 42 K/CU MM 150-450 MEAN PLATELET VOLUME (BEAKER) (test kbxv=143) 9.8 fL 9.4-12.4 NUCLEATED RED BLOOD CELLS (BEAKER) (test 0 /100 WBC 0-0 hpsf=485) NEUTROPHILS RELATIVE PERCENT (BEAKER) (test 59 % dugr=735) LYMPHOCYTES RELATIVE PERCENT (BEAKER) (test 15 % dytn=858) MONOCYTES RELATIVE PERCENT (BEAKER) (test 20 % zzys=977) EOSINOPHILS RELATIVE PERCENT (BEAKER) (test 5 % iwle=563) BASOPHILS RELATIVE PERCENT (BEAKER) (test 1 % fqfr=390) NEUTROPHILS ABSOLUTE COUNT (BEAKER) (test 2.37 K/ L 1.78-5.38 vufe=680) LYMPHOCYTES ABSOLUTE COUNT (BEAKER) (test 0.58 K/ L 1.32-3.57 wqae=191) MONOCYTES ABSOLUTE COUNT (BEAKER) (test hbpt=204) 0.78 K/ L 0.30-0.82 EOSINOPHILS ABSOLUTE COUNT (BEAKER) (test 0.21 K/ L 0.04-0.54 utec=657) BASOPHILS ABSOLUTE COUNT (BEAKER) (test eldt=639) 0.02 K/ L 0.01-0.08 IMMATURE GRANULOCYTES-RELATIVE PERCENT (BEAKER) 1 % 0-1 (test zkyy=5410) PROTHROMBIN [id number] 05:26:00 Test Item Value Reference Range Comments PROTIME (BEAKER) (test hfar=524) 23.3 seconds 11.7-14.7 INR (BEAKER) (test lodt=822) 2.1 <=5.9 RECOMMENDED COUMADIN/WARFARIN INR THERAPY RANGESSTANDARD DOSE: 2.0 - 3.0 Includes: PROPHYLAXIS forvenous thrombosis, systemic embolization; TREATMENT for venous thrombosis and/or pulmonary embolus.HIGH RISK: Target INR is 2.5-3.5 for patients with mechanical heart valves.CALCIUM, [id number] 05:21:00 Test Item Value Reference Range Comments CALCIUM IONIZED (BEAKER) (test qpwj=825) 1.11 mmol/L 1.12-1.27 PH, BLOOD (BEAKER) (test caoh=1620) 7.40 POCT-GLUCOSE [id number] 21:47:00 Test Item Value Reference Range Comments POC-GLUCOSE METER (BEAKER) 129 mg/dL 70-110 TESTED AT [address] (test fgww=6273) [facility] [address] RAD, CHEST, 1 VIEW, NON [id number] 17:18:00Reason for exam:->sobFINAL REPORT Comparison: 08/26/2018 TECHNIQUE: Single view of the chest FINDINGS: Lung volumes are low. Bibasilar densities may represent atelectasis. Otherwise lungs are clear. Cardiac silhouette is within normal limits. Soft tissues and bones are unremarkable. Signed: Rick Guerra MDReport Verified Date/Time: 09/02/2018 17:18:49 Reading Location: [facility] Mammo Reading Room CBC W/ PLT COUNT & AUTO [id number] 17:16:00 Test Item Value Reference Range Comments WHITE BLOOD CELL COUNT (BEAKER) (test jwtk=262) 3.8 K/ L 3.5-10.5 RED BLOOD CELL COUNT (BEAKER) (test qetw=775) 2.37 M/ L 4.63-6.08 HEMOGLOBIN (BEAKER) (test ywpx=924) 7.4 GM/DL 13.7-17.5 HEMATOCRIT (BEAKER) (test nlgk=300) 21.8 % 40.1-51.0 MEAN CORPUSCULAR VOLUME (BEAKER) (test vsee=693) 92.0 fL 79.0-92.2 MEAN CORPUSCULAR HEMOGLOBIN (BEAKER) (test 31.2 pg 25.7-32.2 pkhr=981) MEAN CORPUSCULAR HEMOGLOBIN CONC (BEAKER) (test 33.9 GM/DL 32.3-36.5 fnhg=474) RED CELL DISTRIBUTION WIDTH (BEAKER) (test 14.9 % 11.6-14.4 vdqc=156) PLATELET COUNT (BEAKER) (test tvrd=524) 41 K/CU MM 150-450 MEAN PLATELET VOLUME (BEAKER) (test zqnl=952) 8.8 fL 9.4-12.4 NUCLEATED RED BLOOD CELLS (BEAKER) (test 0 /100 WBC 0-0 jrav=427) NEUTROPHILS RELATIVE PERCENT (BEAKER) (test 62 % zjrr=688) LYMPHOCYTES RELATIVE PERCENT (BEAKER) (test 14 % gxak=245) MONOCYTES RELATIVE PERCENT (BEAKER) (test 18 % hclo=720) EOSINOPHILS RELATIVE PERCENT (BEAKER) (test 4 % ybxk=815) BASOPHILS RELATIVE PERCENT (BEAKER) (test 0 % egwg=868) NEUTROPHILS ABSOLUTE COUNT (BEAKER) (test 2.39 K/ L 1.78-5.38 htdo=024) LYMPHOCYTES ABSOLUTE COUNT (BEAKER) (test 0.55 K/ L 1.32-3.57 dsht=839) MONOCYTES ABSOLUTE COUNT (BEAKER) (test oaqw=537) 0.69 K/ L 0.30-0.82 EOSINOPHILS ABSOLUTE COUNT (BEAKER) (test 0.17 K/ L 0.04-0.54 xwgl=183) BASOPHILS ABSOLUTE COUNT (BEAKER) (test ffoy=324) 0.01 K/ L 0.01-0.08 IMMATURE GRANULOCYTES-RELATIVE PERCENT (BEAKER) 1 % 0-1 (test sswo=2375) POCT-BLOOD GASES, [id number] 16:58:00 Test Item Value Reference Range Comments TEMP, CELSIUS-POC (BEAKER) 37.0 (test ziwr=6898) FIO2-POC (BEAKER) (test TESTED AT [facility] [address], [place] xqri=1565) [facility] [address] PH, ARTERIAL-POC (BEAKER) 7.412 7.350-7.450 (test jcvm=0802) PCO2, ARTERIAL-POC (BEAKER) 35.5 mm Hg 35.0-45.0 (test xaih=8250) PO2, ARTERIAL-POC (BEAKER) 69.0 mm Hg 80.0-90.0 (test reva=5734) SO2, ARTERIAL-POC (BEAKER) 94.0 % 96.0-97.0 (test jppp=3622) HCO3, ARTERIAL-POC (BEAKER) 22.6 meq/L 21.0-29.0 (test ofdv=9997) BASE EXCESS, ARTERIAL-POC -2.0 meq/L -2.0-3.0 (BEAKER) (test ayei=1970) [id number] 16:58:00 Test Item Value Reference Range Comments POC-SODIUM (BEAKER) (test 125 meq/L 135-148 TESTED AT [address] nkcs=9450) [place] [address] [id number] 16:58:00 Test Item Value Reference Range Comments POC-POTASSIUM (BEAKER) (test 4.2 meq/L 3.6-5.5 TESTED AT [address] hxas=4707) [place] [address] [id number] 16:58:00 Test Item Value Reference Range Comments POC-GLUCOSE (BEAKER) (test 128 mg/dL 70-110 TESTED AT [address] qcxe=3900) [place] [address] POCT-CALCIUM [id number] 16:58:00 Test Item Value Reference Range Comments POC-CALCIUM IONIZED (BEAKER) 1.24 mmol/L 1.12-1.27 TESTED AT [address] (test opmg=7039) [place] [address] [id number] 16:58:00 Test Item Value Reference Range Comments POC-HEMATOCRIT (BEAKER) (test 21 % 40-50 TESTED AT [address] mzvy=2816) [place] [address] [id number] 16:58:00 Test Item Value Reference Range Comments POC-HEMOGLOBIN (BEAKER) 7.1 g/dL 13.0-16.8 TESTED AT [address] (test dfor=0494) [facility] [address]ZXPTXQ AT [address] [address] POCT-LACTIC ACID, [id number] 16:58:00 Test Item Value Reference Range Comments POC-LACTIC ACID, ARTERIAL 1.0 mmol/L 0.4-1.3 TESTED AT [address] (BEAKER) (test iizc=6997) [facility] [address] POCT-GLUCOSE [id number] 11:43:00 Test Item Value Reference Range Comments POC-GLUCOSE METER (BEAKER) 169 mg/dL 70-110 TESTED AT [address] (test olxf=4580) [facility] [address] POCT-GLUCOSE [id number] 08:23:00 Test Item Value Reference Range Comments POC-GLUCOSE METER (BEAKER) 128 mg/dL 70-110 TESTED AT [address] (test keei=1012) [place] [address] [id number] 05:16:00 Test Item Value Reference Range Comments PHOSPHORUS (BEAKER) (test bfyv=754) 3.8 mg/dL 2.3-4.7 [id number] 05:16:00 Test Item Value Reference Range Comments MAGNESIUM (BEAKER) (test djgg=971) 2.0 mg/dL 1.6-2.6 COMPREHENSIVE METABOLIC [id number] 05:16:00 Test Item Value Reference Range Comments TOTAL PROTEIN (BEAKER) 5.0 gm/dL 6.0-8.3 (test bgba=888) ALBUMIN (BEAKER) (test 3.5 g/dL 3.5-5.0 leiy=8472) ALKALINE PHOSPHATASE 124 U/L 40-150 (BEAKER) (test bdej=887) BILIRUBIN TOTAL (BEAKER) 2.2 mg/dL 0.2-1.2 (test qykd=022) SODIUM (BEAKER) (test 125 meq/L 136-145 pjfx=879) POTASSIUM (BEAKER) (test 4.4 meq/L 3.5-5.1 jgrs=409) CHLORIDE (BEAKER) (test 96 meq/L 98-107 hutt=129) CO2 (BEAKER) (test 23 meq/L 22-29 edgi=588) BLOOD UREA NITROGEN 27 mg/dL 7-21 (BEAKER) (test fbxf=004) CREATININE (BEAKER) (test 1.74 mg/dL 0.57-1.25 sasc=583) GLUCOSE RANDOM (BEAKER) 112 mg/dL 70-105 (test gzpf=864) CALCIUM (BEAKER) (test 8.8 mg/dL 8.4-10.2 wint=870) AST (SGOT) (BEAKER) (test 17 U/L 5-34 xejj=176) ALT (SGPT) (BEAKER) (test 7 U/L 6-55 igpd=543) EGFR (BEAKER) (test 41 mL/min/1.73 sq m ESTIMATED GFR IS NOT lkqp=5298) ACCURATE CREATININE CLEARANCE IN PREDICTING GLOMERULAR FILTRATION RATE. ESTIMATED GFR IS NOT APPLICABLE FOR DIALYSIS PATIENTS. CALCIUM, [id number] 05:13:00 Test Item Value Reference Range Comments CALCIUM IONIZED (BEAKER) (test ryol=445) 1.10 mmol/L 1.12-1.27 PH, BLOOD (BEAKER) (test lqii=7332) 7.44 CBC W/PLT COUNT & AUTO [id number] 05:02:00 Test Item Value Reference Range Comments WHITE BLOOD CELL COUNT (BEAKER) (test asjx=385) 3.2 K/ L 3.5-10.5 RED BLOOD CELL COUNT (BEAKER) (test jnfb=144) 2.23 M/ L 4.63-6.08 HEMOGLOBIN (BEAKER) (test jfsl=043) 6.9 GM/DL 13.7-17.5 HEMATOCRIT (BEAKER) (test dkwt=941) 20.8 % 40.1-51.0 MEAN CORPUSCULAR VOLUME (BEAKER) (test yaml=132) 93.3 fL 79.0-92.2 MEAN CORPUSCULAR HEMOGLOBIN (BEAKER) (test 30.9 pg 25.7-32.2 mtpr=640) MEAN CORPUSCULAR HEMOGLOBIN CONC (BEAKER) (test 33.2 GM/DL 32.3-36.5 qjyk=799) RED CELL DISTRIBUTION WIDTH (BEAKER) (test 14.6 % 11.6-14.4 zftv=544) PLATELET COUNT (BEAKER) (test mtfm=521) 43 K/CU MM 150-450 MEAN PLATELET VOLUME (BEAKER) (test amse=368) 9.3 fL 9.4-12.4 NUCLEATED RED BLOOD CELLS (BEAKER) (test 0 /100 WBC 0-0 svew=212) NEUTROPHILS RELATIVE PERCENT (BEAKER) (test 58 % qssu=647) LYMPHOCYTES RELATIVE PERCENT (BEAKER) (test 17 % wptp=569) MONOCYTES RELATIVE PERCENT (BEAKER) (test 18 % fffc=634) EOSINOPHILS RELATIVE PERCENT (BEAKER) (test 5 % utpz=579) BASOPHILS RELATIVE PERCENT (BEAKER) (test 1 % ucge=782) NEUTROPHILS ABSOLUTE COUNT (BEAKER) (test 1.84 K/ L 1.78-5.38 xidw=057) LYMPHOCYTES ABSOLUTE COUNT (BEAKER) (test 0.54 K/ L 1.32-3.57 mgut=384) MONOCYTES ABSOLUTE COUNT (BEAKER) (test zeui=376) 0.56 K/ L 0.30-0.82 EOSINOPHILS ABSOLUTE COUNT (BEAKER) (test 0.15 K/ L 0.04-0.54 ytdg=333) BASOPHILS ABSOLUTE COUNT (BEAKER) (test gxhd=460) 0.02 K/ L 0.01-0.08 IMMATURE GRANULOCYTES-RELATIVE PERCENT (BEAKER) 1 % 0-1 (test fjwz=8774) PROTHROMBIN [id number] 05:00:00 Test Item Value Reference Range Comments PROTIME (BEAKER) (test kuax=617) 22.7 seconds 11.7-14.7 INR (BEAKER) (test awtf=784) 2.0 <=5.9 RECOMMENDED COUMADIN/WARFARIN INR THERAPY RANGESSTANDARD DOSE: 2.0 - 3.0 Includes: PROPHYLAXIS forvenous thrombosis, systemic embolization; TREATMENT for venous thrombosis and/or pulmonary embolus.HIGH RISK: Target INR is 2.5-3.5 for patients with mechanical heart valves.POCT-GLUCOSE [id number] 22:18:00 Test Item Value Reference Range Comments POC-GLUCOSE METER (BEAKER) 194 mg/dL 70-110 TESTED AT [address] (test kvao=5523) [facility] [address] POCT-GLUCOSE [id number] 17:33:00 Test Item Value Reference Range Comments POC-GLUCOSE METER (BEAKER) 160 mg/dL 70-110 TESTED AT [address] (test mtff=8300) [facility] [address] POCT-GLUCOSE [id number] 11:56:00 Test Item Value Reference Range Comments POC-GLUCOSE METER (BEAKER) 151 mg/dL 70-110 TESTED AT [facility] [address] [place] (test vuty=9705) [facility] [address] URINALYSIS W/ [id number] 09:52:00 Test Item Value Reference Range Comments COLOR (BEAKER) (test jfga=364) Yellow CLARITY (BEAKER) (test ibbl=488) Clear SPECIFIC GRAVITY UA (BEAKER) (test 1.014 1.001-1.035 ayfl=510) PH UA (BEAKER) (test hypp=530) 5.5 5.0-8.0 PROTEIN UA (BEAKER) (test pcln=138) Negative Negative GLUCOSE UA (BEAKER) (test fwry=180) Negative Negative KETONES UA (BEAKER) (test wtxt=880) Negative Negative BILIRUBIN UA (BEAKER) (test lrxs=923) Negative Negative BLOOD UA (BEAKER) (test xshq=634) Negative Negative NITRITE UA (BEAKER) (test imhk=275) Negative Negative LEUKOCYTE ESTERASE UA (BEAKER) (test Negative Negative snnn=187) UROBILINOGEN UA (BEAKER) (test qrph=903) 0.2 mg/dL 0.2-1.0 RBC UA (BEAKER) (test xtyc=140) 1 /HPF WBC UA (BEAKER) (test fqqe=619) 4 /HPF BACTERIA (BEAKER) (test fzyg=094) Rare MUCUS (BEAKER) (test mnld=8438) Rare HYALINE CASTS (BEAKER) (test iffb=508) 19 /LPF YEAST (BEAKER) (test jajx=9397) Rare SOURCE(BEAKER) (test ldde=5279) Urine, Clean Catch SODIUM, RANDOM [id number] 09:09:00 Test Item Value Reference Range Comments SODIUM URINE (BEAKER) (test myni=001) < meq/L Reference Range: No NormalsCREATININE, RANDOM [id number] 09:04:00 Test Item Value Reference Range Comments CREATININE URINE (BEAKER) (test kdmw=063) 149.6 mg/dL Reference Range: No NormalsPOCT-GLUCOSE [id number] 08:12:00 Test Item Value Reference Range Comments POC-GLUCOSE METER (BEAKER) 106 mg/dL 70-110 TESTED AT [facility] [address] (test uvfo=1783) [place] [address] CBC W/PLT COUNT & AUTO [id number] 06:56:00 Test Item Value Reference Range Comments WHITE BLOOD CELL COUNT (BEAKER) (test hayj=848) 4.5 K/ L 3.5-10.5 RED BLOOD CELL COUNT (BEAKER) (test aauf=201) 2.22 M/ L 4.63-6.08 HEMOGLOBIN (BEAKER) (test kyiq=966) 7.0 GM/DL 13.7-17.5 HEMATOCRIT (BEAKER) (test pucc=118) 20.6 % 40.1-51.0 MEAN CORPUSCULAR VOLUME (BEAKER) (test yfle=701) 92.8 fL 79.0-92.2 MEAN CORPUSCULAR HEMOGLOBIN (BEAKER) (test 31.5 pg 25.7-32.2 eban=266) MEAN CORPUSCULAR HEMOGLOBIN CONC (BEAKER) (test 34.0 GM/DL 32.3-36.5 cxxu=171) RED CELL DISTRIBUTION WIDTH (BEAKER) (test 14.7 % 11.6-14.4 ikas=586) PLATELET COUNT (BEAKER) (test jtkq=085) 44 K/CU MM 150-450 MEAN PLATELET VOLUME (BEAKER) (test vmtc=758) 9.0 fL 9.4-12.4 NUCLEATED RED BLOOD CELLS (BEAKER) (test 0 /100 WBC 0-0 lboq=686) NEUTROPHILS RELATIVE PERCENT (BEAKER) (test 69 % vbeq=316) LYMPHOCYTES RELATIVE PERCENT (BEAKER) (test 12 % bvep=423) MONOCYTES RELATIVE PERCENT (BEAKER) (test 14 % qmpb=223) EOSINOPHILS RELATIVE PERCENT (BEAKER) (test 4 % mztm=153) BASOPHILS RELATIVE PERCENT (BEAKER) (test 0 % rgzw=618) NEUTROPHILS ABSOLUTE COUNT (BEAKER) (test 3.12 K/ L 1.78-5.38 gzfx=101) LYMPHOCYTES ABSOLUTE COUNT (BEAKER) (test 0.55 K/ L 1.32-3.57 hecl=399) MONOCYTES ABSOLUTE COUNT (BEAKER) (test xucv=178) 0.62 K/ L 0.30-0.82 EOSINOPHILS ABSOLUTE COUNT (BEAKER) (test 0.18 K/ L 0.04-0.54 iuqo=080) BASOPHILS ABSOLUTE COUNT (BEAKER) (test jirz=637) 0.00 K/ L 0.01-0.08 IMMATURE GRANULOCYTES-RELATIVE PERCENT (BEAKER) 1 % 0-1 (test onqq=5726) [id number] 06:41:00 Test Item Value Reference Range Comments PHOSPHORUS (BEAKER) (test vvgw=489) 2.7 mg/dL 2.3-4.7 [id number] 06:41:00 Test Item Value Reference Range Comments MAGNESIUM (BEAKER) (test fhas=862) 2.0 mg/dL 1.6-2.6 COMPREHENSIVE METABOLIC [id number] 06:41:00 Test Item Value Reference Range Comments TOTAL PROTEIN (BEAKER) 4.9 gm/dL 6.0-8.3 (test oqtu=105) ALBUMIN (BEAKER) (test 3.1 g/dL 3.5-5.0 qxgt=2060) ALKALINE PHOSPHATASE 148 U/L 40-150 (BEAKER) (test mvpz=848) BILIRUBIN TOTAL (BEAKER) 1.9 mg/dL 0.2-1.2 (test vavh=514) SODIUM (BEAKER) (test 123 meq/L 136-145 daxv=928) POTASSIUM (BEAKER) (test 3.9 meq/L 3.5-5.1 azdl=661) CHLORIDE (BEAKER) (test 94 meq/L 98-107 gvdc=848) CO2 (BEAKER) (test 22 meq/L 22-29 msmo=846) BLOOD UREA NITROGEN 24 mg/dL 7-21 (BEAKER) (test yqrz=887) CREATININE (BEAKER) (test 1.55 mg/dL 0.57-1.25 kpwy=937) GLUCOSE RANDOM (BEAKER) 95 mg/dL 70-105 (test shpk=344) CALCIUM (BEAKER) (test 8.5 mg/dL 8.4-10.2 oojz=223) AST (SGOT) (BEAKER) (test 18 U/L 5-34 pnoa=878) ALT (SGPT) (BEAKER) (test 10 U/L 6-55 pfgv=526) EGFR (BEAKER) (test 47 mL/min/1.73 sq m ESTIMATED GFR IS NOT pvbo=7553) ACCURATE CREATININE CLEARANCE IN PREDICTING GLOMERULAR FILTRATION RATE. ESTIMATED GFR IS NOT APPLICABLE FOR DIALYSIS PATIENTS. BILIRUBIN, [id number] 06:41:00 Test Item Value Reference Range Comments BILIRUBIN DIRECT (BEAKER) (test ofrb=400) 1.3 mg/dL 0.1-0.5 PROTHROMBIN [id number] 06:26:00 Test Item Value Reference Range Comments PROTIME (BEAKER) (test swlb=968) 23.3 seconds 11.7-14.7 INR (BEAKER) (test blum=992) 2.1 <=5.9 RECOMMENDED COUMADIN/WARFARIN INR THERAPY RANGESSTANDARD DOSE: 2.0 - 3.0 Includes: PROPHYLAXIS forvenous thrombosis, systemic embolization; TREATMENT for venous thrombosis and/or pulmonary embolus.HIGH RISK: Target INR is 2.5-3.5 for patients with mechanical heart valves.POCT-GLUCOSE [id number] 22:17:00 Test Item Value Reference Range Comments POC-GLUCOSE METER (BEAKER) 136 mg/dL 70-110 TESTED AT [address] (test cwap=3123) [place] [address] POCT-GLUCOSE [id number] 18:08:00 Test Item Value Reference Range Comments POC-GLUCOSE METER (BEAKER) 126 mg/dL 70-110 TESTED AT [address] (test kimm=3355) [place] [address] U/S, [id number] 17:47:00Reason for exam:->ascitesFINAL REPORT Indication: Ascites. Technique: Ultrasound guided paracentesis. Findings:Preliminary ultrasound confirms ascites. A safe window was identified in the left lower quadrant. The procedure was explained to the patient and informed consent was signed. The skin was markedand prepped in standard sterile fashion. Lidocaine was used for local anesthesia. A 5 [place]ese needle catheter system was advanced into the peritoneal space. 5500 cc slightly cloudy yellow fluid was taken off. Patient tolerated the procedure well. Impression: Ultrasound guided paracentesis. Signed: Aristeo Xiong [facility] Verified Date/Time: 08/31/2018 17:47:54 Reading Location: [address] Ultrasound Reading Room POCT-GLUCOSE [id number] 11:52:00 Test Item Value Reference Range Comments POC-GLUCOSE METER (BEAKER) 151 mg/dL 70-110 TESTED AT [place] [id number] [place] (test xsiu=6658) [facility] [address] POCT-GLUCOSE [id number] 08:19:00 Test Item Value Reference Range Comments POC-GLUCOSE METER (BEAKER) 129 mg/dL 70-110 TESTED AT [address] (test tada=5692) [facility] [address] [id number] 05:12:00 Test Item Value Reference Range Comments PHOSPHORUS (BEAKER) (test qbbx=477) 2.9 mg/dL 2.3-4.7 [id number] 05:12:00 Test Item Value Reference Range Comments MAGNESIUM (BEAKER) (test urrx=820) 2.0 mg/dL 1.6-2.6 COMPREHENSIVE METABOLIC [id number] 05:12:00 Test Item Value Reference Range Comments TOTAL PROTEIN (BEAKER) 5.4 gm/dL 6.0-8.3 (test smfa=375) ALBUMIN (BEAKER) (test 3.2 g/dL 3.5-5.0 crie=3872) ALKALINE PHOSPHATASE 159 U/L 40-150 (BEAKER) (test kbnw=805) BILIRUBIN TOTAL (BEAKER) 1.8 mg/dL 0.2-1.2 (test uvmg=072) SODIUM (BEAKER) (test 125 meq/L 136-145 gqsd=805) POTASSIUM (BEAKER) (test 4.3 meq/L 3.5-5.1 pmpa=273) CHLORIDE (BEAKER) (test 97 meq/L 98-107 iheh=967) CO2 (BEAKER) (test 22 meq/L 22-29 ubkf=965) BLOOD UREA NITROGEN 21 mg/dL 7-21 (BEAKER) (test zfsy=935) CREATININE (BEAKER) (test 1.34 mg/dL 0.57-1.25 havl=013) GLUCOSE RANDOM (BEAKER) 113 mg/dL 70-105 (test bywt=265) CALCIUM (BEAKER) (test 8.8 mg/dL 8.4-10.2 fxew=051) AST (SGOT) (BEAKER) (test 22 U/L 5-34 pgcs=107) ALT (SGPT) (BEAKER) (test 11 U/L 6-55 flwv=930) EGFR (BEAKER) (test 56 mL/min/1.73 sq m ESTIMATED GFR IS NOT jwhy=6873) ACCURATE CREATININE CLEARANCE IN PREDICTING GLOMERULAR FILTRATION RATE. ESTIMATED GFR IS NOT APPLICABLE FOR DIALYSIS PATIENTS. BILIRUBIN, [id number] 05:12:00 Test Item Value Reference Range Comments BILIRUBIN DIRECT (BEAKER) (test tthg=152) 1.2 mg/dL 0.1-0.5 PROTHROMBIN [id number] 04:48:00 Test Item Value Reference Range Comments PROTIME (BEAKER) (test bpuu=977) 22.3 seconds 11.7-14.7 INR (BEAKER) (test wbij=081) 2.0 <=5.9 RECOMMENDED COUMADIN/WARFARIN INR THERAPY RANGESSTANDARD DOSE: 2.0 - 3.0 Includes: PROPHYLAXIS forvenous thrombosis, systemic embolization; TREATMENT for venous thrombosis and/or pulmonary embolus.HIGH RISK: Target INR is 2.5-3.5 for patients with mechanical heart valves.CBC W/PLT COUNT & AUTO [id number] 04:33:00 Test Item Value Reference Range Comments WHITE BLOOD CELL COUNT (BEAKER) (test zylt=024) 5.5 K/ L 3.5-10.5 RED BLOOD CELL COUNT (BEAKER) (test heax=518) 2.58 M/ L 4.63-6.08 HEMOGLOBIN (BEAKER) (test jslt=466) 7.9 GM/DL 13.7-17.5 HEMATOCRIT (BEAKER) (test okcp=472) 24.3 % 40.1-51.0 MEAN CORPUSCULAR VOLUME (BEAKER) (test djpz=042) 94.2 fL 79.0-92.2 MEAN CORPUSCULAR HEMOGLOBIN (BEAKER) (test 30.6 pg 25.7-32.2 baru=132) MEAN CORPUSCULAR HEMOGLOBIN CONC (BEAKER) (test 32.5 GM/DL 32.3-36.5 tslb=474) RED CELL DISTRIBUTION WIDTH (BEAKER) (test 15.0 % 11.6-14.4 vzrz=665) PLATELET COUNT (BEAKER) (test hkba=797) 57 K/CU MM 150-450 MEAN PLATELET VOLUME (BEAKER) (test yqdh=112) 9.2 fL 9.4-12.4 NUCLEATED RED BLOOD CELLS (BEAKER) (test 0 /100 WBC 0-0 ozej=364) NEUTROPHILS RELATIVE PERCENT (BEAKER) (test 70 % xgca=622) LYMPHOCYTES RELATIVE PERCENT (BEAKER) (test 12 % zjvd=211) MONOCYTES RELATIVE PERCENT (BEAKER) (test 14 % mapo=013) EOSINOPHILS RELATIVE PERCENT (BEAKER) (test 4 % zwmn=279) BASOPHILS RELATIVE PERCENT (BEAKER) (test 0 % ztmv=190) NEUTROPHILS ABSOLUTE COUNT (BEAKER) (test 3.85 K/ L 1.78-5.38 lrvh=703) LYMPHOCYTES ABSOLUTE COUNT (BEAKER) (test 0.67 K/ L 1.32-3.57 bucs=860) MONOCYTES ABSOLUTE COUNT (BEAKER) (test mxjm=127) 0.75 K/ L 0.30-0.82 EOSINOPHILS ABSOLUTE COUNT (BEAKER) (test 0.22 K/ L 0.04-0.54 fsfc=135) BASOPHILS ABSOLUTE COUNT (BEAKER) (test wqbf=383) 0.01 K/ L 0.01-0.08 IMMATURE GRANULOCYTES-RELATIVE PERCENT (BEAKER) 1 % 0-1 (test qbky=5892) BLOOD [id number] 23:01:00 Test Item Value Reference Range Comments CULTURE (BEAKER) (test ugtd=8218) No growth in 5 days POCT-GLUCOSE [id number] 22:15:00 Test Item Value Reference Range Comments POC-GLUCOSE METER (BEAKER) 133 mg/dL 70-110 TESTED AT [address] (test brvv=5912) [facility] [address] POCT-GLUCOSE [id number] 17:42:00 Test Item Value Reference Range Comments POC-GLUCOSE METER (BEAKER) 139 mg/dL 70-110 TESTED AT [address] (test ukoa=8461) [place] [id number] POCT-GLUCOSE [id number] 12:02:00 Test Item Value Reference Range Comments POC-GLUCOSE METER (BEAKER) 152 mg/dL 70-110 TESTED AT [address] (test xuly=4871) [facility] [address] POCT-GLUCOSE [id number] 09:04:00 Test Item Value Reference Range Comments POC-GLUCOSE METER (BEAKER) 130 mg/dL 70-110 TESTED AT [facility] [address] (test sbgu=4997) [place] [address] CALCIUM, [id number] 07:27:00 Test Item Value Reference Range Comments CALCIUM IONIZED (BEAKER) (test xixk=242) 1.10 mmol/L 1.12-1.27 PH, BLOOD (BEAKER) (test waax=2108) 7.42 [id number] 06:46:00 Test Item Value Reference Range Comments PHOSPHORUS (BEAKER) (test etah=160) 3.0 mg/dL 2.3-4.7 [id number] 06:46:00 Test Item Value Reference Range Comments MAGNESIUM (BEAKER) (test atjm=064) 2.0 mg/dL 1.6-2.6 COMPREHENSIVE METABOLIC [id number] 06:46:00 Test Item Value Reference Range Comments TOTAL PROTEIN (BEAKER) 4.9 gm/dL 6.0-8.3 (test mbmu=499) ALBUMIN (BEAKER) (test 3.0 g/dL 3.5-5.0 duzs=3290) ALKALINE PHOSPHATASE 145 U/L 40-150 (BEAKER) (test szkm=146) BILIRUBIN TOTAL (BEAKER) 1.9 mg/dL 0.2-1.2 (test zxkv=692) SODIUM (BEAKER) (test 127 meq/L 136-145 dpvg=353) POTASSIUM (BEAKER) (test 3.7 meq/L 3.5-5.1 nybg=705) CHLORIDE (BEAKER) (test 99 meq/L 98-107 dndl=386) CO2 (BEAKER) (test 21 meq/L 22-29 wqwc=829) BLOOD UREA NITROGEN 20 mg/dL 7-21 (BEAKER) (test bfap=834) CREATININE (BEAKER) (test 1.21 mg/dL 0.57-1.25 etsy=012) GLUCOSE RANDOM (BEAKER) 108 mg/dL 70-105 (test rtnz=245) CALCIUM (BEAKER) (test 8.9 mg/dL 8.4-10.2 fjny=088) AST (SGOT) (BEAKER) (test 22 U/L 5-34 aynv=616) ALT (SGPT) (BEAKER) (test 9 U/L 6-55 olfp=703) EGFR (BEAKER) (test 63 mL/min/1.73 sq m ESTIMATED GFR IS NOT slgp=3072) ACCURATE CREATININE CLEARANCE IN PREDICTING GLOMERULAR FILTRATION RATE. ESTIMATED GFR IS NOT APPLICABLE FOR DIALYSIS PATIENTS. BASIC METABOLIC [id number] 06:46:00 Test Item Value Reference Range Comments SODIUM (BEAKER) (test 127 meq/L 136-145 tggv=452) POTASSIUM (BEAKER) (test 3.7 meq/L 3.5-5.1 nnms=033) CHLORIDE (BEAKER) (test 99 meq/L 98-107 gafc=342) CO2 (BEAKER) (test 21 meq/L 22-29 pxxj=642) BLOOD UREA NITROGEN 20 mg/dL 7-21 (BEAKER) (test rafy=447) CREATININE (BEAKER) (test 1.21 mg/dL 0.57-1.25 domf=819) GLUCOSE RANDOM (BEAKER) 108 mg/dL 70-105 (test yxtm=264) CALCIUM (BEAKER) (test 8.9 mg/dL 8.4-10.2 amxh=652) EGFR (BEAKER) (test 63 mL/min/1.73 sq m ESTIMATED GFR IS NOT jfnx=1438) ACCURATE CREATININE CLEARANCE IN PREDICTING GLOMERULAR FILTRATION RATE. ESTIMATED GFR IS NOT APPLICABLE FOR DIALYSIS PATIENTS. BILIRUBIN, [id number] 06:46:00 Test Item Value Reference Range Comments BILIRUBIN DIRECT (BEAKER) (test zqay=792) 1.2 mg/dL 0.1-0.5 CBC W/PLT COUNT & AUTO [id number] 06:30:00 Test Item Value Reference Range Comments WHITE BLOOD CELL COUNT (BEAKER) (test djkj=278) 3.7 K/ L 3.5-10.5 RED BLOOD CELL COUNT (BEAKER) (test kxpd=917) 2.35 M/ L 4.63-6.08 HEMOGLOBIN (BEAKER) (test tmbr=983) 7.4 GM/DL 13.7-17.5 HEMATOCRIT (BEAKER) (test hous=937) 22.1 % 40.1-51.0 MEAN CORPUSCULAR VOLUME (BEAKER) (test nwkg=914) 94.0 fL 79.0-92.2 MEAN CORPUSCULAR HEMOGLOBIN (BEAKER) (test 31.5 pg 25.7-32.2 zjob=287) MEAN CORPUSCULAR HEMOGLOBIN CONC (BEAKER) (test 33.5 GM/DL 32.3-36.5 ttdc=591) RED CELL DISTRIBUTION WIDTH (BEAKER) (test 14.8 % 11.6-14.4 tfhd=477) PLATELET COUNT (BEAKER) (test xjgq=974) 45 K/CU MM 150-450 MEAN PLATELET VOLUME (BEAKER) (test axcb=549) 8.8 fL 9.4-12.4 NUCLEATED RED BLOOD CELLS (BEAKER) (test 0 /100 WBC 0-0 nyhq=048) NEUTROPHILS RELATIVE PERCENT (BEAKER) (test 61 % saca=517) LYMPHOCYTES RELATIVE PERCENT (BEAKER) (test 14 % xcbj=714) MONOCYTES RELATIVE PERCENT (BEAKER) (test 18 % elam=551) EOSINOPHILS RELATIVE PERCENT (BEAKER) (test 6 % aage=717) BASOPHILS RELATIVE PERCENT (BEAKER) (test 0 % zvjt=704) NEUTROPHILS ABSOLUTE COUNT (BEAKER) (test 2.25 K/ L 1.78-5.38 lhry=160) LYMPHOCYTES ABSOLUTE COUNT (BEAKER) (test 0.53 K/ L 1.32-3.57 bhrp=320) MONOCYTES ABSOLUTE COUNT (BEAKER) (test ejle=020) 0.67 K/ L 0.30-0.82 EOSINOPHILS ABSOLUTE COUNT (BEAKER) (test 0.23 K/ L 0.04-0.54 jvvt=608) BASOPHILS ABSOLUTE COUNT (BEAKER) (test wxnr=566) 0.01 K/ L 0.01-0.08 IMMATURE GRANULOCYTES-RELATIVE PERCENT (BEAKER) 1 % 0-1 (test hhxf=1144) PROTHROMBIN [id number] 06:07:00 Test Item Value Reference Range Comments PROTIME (BEAKER) (test rcdc=311) 21.4 seconds 11.7-14.7 INR (BEAKER) (test ppjh=368) 1.9 <=5.9 RECOMMENDED COUMADIN/WARFARIN INR THERAPY RANGESSTANDARD DOSE: 2.0 - 3.0 Includes: PROPHYLAXIS forvenous thrombosis, systemic embolization; TREATMENT for venous thrombosis and/or pulmonary embolus.HIGH RISK: Target INR is 2.5-3.5 for patients with mechanical heart valves.POCT-GLUCOSE [id number] 23:37:00 Test Item Value Reference Range Comments POC-GLUCOSE METER (BEAKER) 154 mg/dL 70-110 TESTED AT [address] (test zlpq=9442) [place] [address] BASIC METABOLIC [id number] 20:17:00 Test Item Value Reference Range Comments SODIUM (BEAKER) (test 125 meq/L 136-145 mfkg=282) POTASSIUM (BEAKER) (test 4.0 meq/L 3.5-5.1 afhy=016) CHLORIDE (BEAKER) (test 94 meq/L 98-107 thlr=577) CO2 (BEAKER) (test 25 meq/L 22-29 zajr=817) BLOOD UREA NITROGEN 20 mg/dL 7-21 (BEAKER) (test zbxq=515) CREATININE (BEAKER) (test 1.34 mg/dL 0.57-1.25 vulc=408) GLUCOSE RANDOM (BEAKER) 115 mg/dL 70-105 (test vjza=518) CALCIUM (BEAKER) (test 8.9 mg/dL 8.4-10.2 icwv=377) EGFR (BEAKER) (test 56 mL/min/1.73 sq m ESTIMATED GFR IS NOT xeim=7196) ACCURATE CREATININE CLEARANCE IN PREDICTING GLOMERULAR FILTRATION RATE. ESTIMATED GFR IS NOT APPLICABLE FOR DIALYSIS PATIENTS. POCT-GLUCOSE [id number] 17:59:00 Test Item Value Reference Range Comments POC-GLUCOSE METER (BEAKER) 161 mg/dL 70-110 TESTED AT [address] (test xnzz=6343) [place] [address] BODY FLUID CULTURE + GRAM [id number] 13:31:00 Test Item Value Reference Range Comments CULTURE (BEAKER) (test zzqv=2930) No growth GRAM STAIN RESULT (BEAKER) (test No organisms seen ihkg=0887) GRAM STAIN RESULT (BEAKER) (test No White blood cells seen zrir=31263) POCT-GLUCOSE [id number] 12:31:00 Test Item Value Reference Range Comments POC-GLUCOSE METER (BEAKER) 114 mg/dL 70-110 TESTED AT [address] (test oqzw=5273) [place] [address] BASIC METABOLIC [id number] 11:33:00 Test Item Value Reference Range Comments SODIUM (BEAKER) (test 124 meq/L 136-145 tlzv=110) POTASSIUM (BEAKER) (test 4.1 meq/L 3.5-5.1 rabw=307) CHLORIDE (BEAKER) (test 94 meq/L 98-107 tlzb=074) CO2 (BEAKER) (test 23 meq/L 22-29 ozgl=708) BLOOD UREA NITROGEN 20 mg/dL 7-21 (BEAKER) (test csih=591) CREATININE (BEAKER) (test 1.22 mg/dL 0.57-1.25 dshx=104) GLUCOSE RANDOM (BEAKER) 94 mg/dL 70-105 (test hrud=017) CALCIUM (BEAKER) (test 8.8 mg/dL 8.4-10.2 pfdy=151) EGFR (BEAKER) (test 62 mL/min/1.73 sq m ESTIMATED GFR IS NOT fbyh=1478) ACCURATE CREATININE CLEARANCE IN PREDICTING GLOMERULAR FILTRATION RATE. ESTIMATED GFR IS NOT APPLICABLE FOR DIALYSIS PATIENTS. [id number] 09:24:00 Test Item Value Reference Range Comments FERRITIN (BEAKER) (test ggix=771) 1685 ng/mL 5-275 POCT-GLUCOSE [id number] 07:59:00 Test Item Value Reference Range Comments POC-GLUCOSE METER (BEAKER) 225 mg/dL 70-110 TESTED AT [facility] [address], [place] (test pjck=5777) [facility] [address] IRON, TIBC, % SAT. (WITHOUT FERRITIN)2018-08-29 07:54:00 Test Item Value Reference Range Comments IRON (BEAKER) (test etnk=475) 98 ug/dL 40-160 TOTAL IRON BINDING CAPACITY (BEAKER) (test 90 ug/dL 250-450 evre=443) IRON % SATURATION (2) (BEAKER) (test uqpf=1547) 109 % 20-55 CALCIUM, [id number] 07:13:00 Test Item Value Reference Range Comments CALCIUM IONIZED (BEAKER) (test rtet=905) 1.10 mmol/L 1.12-1.27 PH, BLOOD (BEAKER) (test dijc=0628) 7.37 [id number] 06:32:00 Test Item Value Reference Range Comments PHOSPHORUS (BEAKER) (test sved=506) 2.6 mg/dL 2.3-4.7 [id number] 06:32:00 Test Item Value Reference Range Comments MAGNESIUM (BEAKER) (test wprx=647) 1.8 mg/dL 1.6-2.6 COMPREHENSIVE METABOLIC [id number] 06:32:00 Test Item Value Reference Range Comments TOTAL PROTEIN (BEAKER) 5.0 gm/dL 6.0-8.3 (test byib=043) ALBUMIN (BEAKER) (test 3.2 g/dL 3.5-5.0 gqeu=4983) ALKALINE PHOSPHATASE 138 U/L 40-150 (BEAKER) (test slub=981) BILIRUBIN TOTAL (BEAKER) 2.1 mg/dL 0.2-1.2 (test gwav=766) SODIUM (BEAKER) (test 126 meq/L 136-145 zaeu=939) POTASSIUM (BEAKER) (test 4.0 meq/L 3.5-5.1 qkze=535) CHLORIDE (BEAKER) (test 95 meq/L 98-107 vaiz=301) CO2 (BEAKER) (test 23 meq/L 22-29 vqbn=684) BLOOD UREA NITROGEN 21 mg/dL 7-21 (BEAKER) (test lazx=236) CREATININE (BEAKER) (test 1.15 mg/dL 0.57-1.25 iues=519) GLUCOSE RANDOM (BEAKER) 110 mg/dL 70-105 (test bogf=060) CALCIUM (BEAKER) (test 8.8 mg/dL 8.4-10.2 thfk=076) AST (SGOT) (BEAKER) (test 22 U/L 5-34 mtwg=019) ALT (SGPT) (BEAKER) (test 11 U/L 6-55 wbqq=528) EGFR (BEAKER) (test 67 mL/min/1.73 sq m ESTIMATED GFR IS NOT effo=2911) ACCURATE CREATININE CLEARANCE IN PREDICTING GLOMERULAR FILTRATION RATE. ESTIMATED GFR IS NOT APPLICABLE FOR DIALYSIS PATIENTS. BASIC METABOLIC [id number] 06:32:00 Test Item Value Reference Range Comments SODIUM (BEAKER) (test 126 meq/L 136-145 rgyf=732) POTASSIUM (BEAKER) (test 4.0 meq/L 3.5-5.1 zjfw=050) CHLORIDE (BEAKER) (test 95 meq/L 98-107 qtbz=076) CO2 (BEAKER) (test 23 meq/L 22-29 umre=678) BLOOD UREA NITROGEN 21 mg/dL 7-21 (BEAKER) (test icgo=158) CREATININE (BEAKER) (test 1.15 mg/dL 0.57-1.25 nrwr=166) GLUCOSE RANDOM (BEAKER) 110 mg/dL 70-105 (test tpka=275) CALCIUM (BEAKER) (test 8.8 mg/dL 8.4-10.2 wlsw=884) EGFR (BEAKER) (test 67 mL/min/1.73 sq m ESTIMATED GFR IS NOT xguk=4630) ACCURATE CREATININE CLEARANCE IN PREDICTING GLOMERULAR FILTRATION RATE. ESTIMATED GFR IS NOT APPLICABLE FOR DIALYSIS PATIENTS. BILIRUBIN, [id number] 06:32:00 Test Item Value Reference Range Comments BILIRUBIN DIRECT (BEAKER) (test txjy=572) 1.4 mg/dL 0.1-0.5 PROTHROMBIN [id number] 05:44:00 Test Item Value Reference Range Comments PROTIME (BEAKER) (test ompv=291) 20.9 seconds 11.7-14.7 INR (BEAKER) (test ppca=208) 1.8 <=5.9 RECOMMENDED COUMADIN/WARFARIN INR THERAPY RANGESSTANDARD DOSE: 2.0 - 3.0 Includes: PROPHYLAXIS forvenous thrombosis, systemic embolization; TREATMENT for venous thrombosis and/or pulmonary embolus.HIGH RISK: Target INR is 2.5-3.5 for patients with mechanical heart valves.CBC W/PLT COUNT & AUTO [id number] 05:43:00 Test Item Value Reference Range Comments WHITE BLOOD CELL COUNT (BEAKER) (test ifub=301) 4.0 K/ L 3.5-10.5 RED BLOOD CELL COUNT (BEAKER) (test hkqb=929) 2.30 M/ L 4.63-6.08 HEMOGLOBIN (BEAKER) (test mtsm=019) 7.5 GM/DL 13.7-17.5 HEMATOCRIT (BEAKER) (test llvd=111) 22.0 % 40.1-51.0 MEAN CORPUSCULAR VOLUME (BEAKER) (test yqfy=220) 95.7 fL 79.0-92.2 MEAN CORPUSCULAR HEMOGLOBIN (BEAKER) (test 32.6 pg 25.7-32.2 kaoz=945) MEAN CORPUSCULAR HEMOGLOBIN CONC (BEAKER) (test 34.1 GM/DL 32.3-36.5 grrr=851) RED CELL DISTRIBUTION WIDTH (BEAKER) (test 14.8 % 11.6-14.4 cnam=143) PLATELET COUNT (BEAKER) (test papl=515) 51 K/CU MM 150-450 MEAN PLATELET VOLUME (BEAKER) (test uhhz=180) 8.8 fL 9.4-12.4 NUCLEATED RED BLOOD CELLS (BEAKER) (test 0 /100 WBC 0-0 hbcs=729) NEUTROPHILS RELATIVE PERCENT (BEAKER) (test 61 % vyzp=640) LYMPHOCYTES RELATIVE PERCENT (BEAKER) (test 12 % vkcl=823) MONOCYTES RELATIVE PERCENT (BEAKER) (test 19 % tihq=054) EOSINOPHILS RELATIVE PERCENT (BEAKER) (test 7 % vsif=871) BASOPHILS RELATIVE PERCENT (BEAKER) (test 0 % zusj=507) NEUTROPHILS ABSOLUTE COUNT (BEAKER) (test 2.43 K/ L 1.78-5.38 zayv=369) LYMPHOCYTES ABSOLUTE COUNT (BEAKER) (test 0.49 K/ L 1.32-3.57 qgrj=638) MONOCYTES ABSOLUTE COUNT (BEAKER) (test nffn=946) 0.75 K/ L 0.30-0.82 EOSINOPHILS ABSOLUTE COUNT (BEAKER) (test 0.29 K/ L 0.04-0.54 pjov=984) BASOPHILS ABSOLUTE COUNT (BEAKER) (test chat=907) 0.00 K/ L 0.01-0.08 IMMATURE GRANULOCYTES-RELATIVE PERCENT (BEAKER) 1 % 0-1 (test encs=8336) POCT-GLUCOSE [id number] 22:23:00 Test Item Value Reference Range Comments POC-GLUCOSE METER (BEAKER) 166 mg/dL 70-110 TESTED AT [address] (test drhm=3164) [facility] [address] POCT-GLUCOSE [id number] 16:12:00 Test Item Value Reference Range Comments POC-GLUCOSE METER (BEAKER) 110 mg/dL 70-110 TESTED AT [address] (test advn=4703) [facility] [address] PTH, [id number] 15:57:00 Test Item Value Reference Range Comments PARATHYROID HORMONE INTACT (BEAKER) (test 26.2 pg/mL 8.5-72.5 mtfq=049) GAMMA GLUTAMYL TRANSFERASE (GGT)2018-08-28 15:51:00 Test Item Value Reference Range Comments GAMMA GLUTAMYL TRANSFERASE (BEAKER) (test ftnh=347) 11 U/L 9-64 BASIC METABOLIC [id number] 15:49:00 Test Item Value Reference Range Comments SODIUM (BEAKER) (test 127 meq/L 136-145 clww=109) POTASSIUM (BEAKER) (test 3.6 meq/L 3.5-5.1 chkj=105) CHLORIDE (BEAKER) (test 97 meq/L 98-107 unfe=887) CO2 (BEAKER) (test 23 meq/L 22-29 qycu=591) BLOOD UREA NITROGEN 20 mg/dL 7-21 (BEAKER) (test cbyq=949) CREATININE (BEAKER) (test 1.19 mg/dL 0.57-1.25 lxcc=483) GLUCOSE RANDOM (BEAKER) 123 mg/dL 70-105 (test inzq=055) CALCIUM (BEAKER) (test 8.6 mg/dL 8.4-10.2 zdqm=706) EGFR (BEAKER) (test 64 mL/min/1.73 sq m ESTIMATED GFR IS NOT hqun=3467) ACCURATE CREATININE CLEARANCE IN PREDICTING GLOMERULAR FILTRATION RATE. ESTIMATED GFR IS NOT APPLICABLE FOR DIALYSIS PATIENTS. VITAMIN D, [id number]-[id number] 15:24:00 Test Item Value Reference Range Comments VITAMIN D 25-OH (BEAKER) (test fmls=3417) 11.2 ng/mL 6.6-49.9 Effective 08/06/2017: Reference Range ChangeNew: 6.6-49.9 ng/mL Previous: 13.0 -47.8 ng/mLRecommended Vitamin D Target Range: 30.0-40.0 ng/mLPOCT-GLUCOSE [id number] 12:35:00 Test Item Value Reference Range Comments POC-GLUCOSE METER (BEAKER) 138 mg/dL 70-110 TESTED AT [facility] [address], [place] (test poib=0201) [facility] [address] BASIC METABOLIC [id number] 09:59:00 Test Item Value Reference Range Comments SODIUM (BEAKER) (test 130 meq/L 136-145 yqbv=113) POTASSIUM (BEAKER) (test 4.1 meq/L 3.5-5.1 qnar=155) CHLORIDE (BEAKER) (test 99 meq/L 98-107 gcqd=291) CO2 (BEAKER) (test 24 meq/L 22-29 ewas=635) BLOOD UREA NITROGEN 22 mg/dL 7-21 (BEAKER) (test gioa=259) CREATININE (BEAKER) (test 1.31 mg/dL 0.57-1.25 lfbl=319) GLUCOSE RANDOM (BEAKER) 121 mg/dL 70-105 (test rxoo=771) CALCIUM (BEAKER) (test 9.4 mg/dL 8.4-10.2 dgng=153) EGFR (BEAKER) (test 57 mL/min/1.73 sq m ESTIMATED GFR IS NOT xvij=9793) ACCURATE CREATININE CLEARANCE IN PREDICTING GLOMERULAR FILTRATION RATE. ESTIMATED GFR IS NOT APPLICABLE FOR DIALYSIS PATIENTS. POCT-GLUCOSE [id number] 08:17:00 Test Item Value Reference Range Comments POC-GLUCOSE METER (BEAKER) 131 mg/dL 70-110 TESTED AT [address] (test sklr=0089) [facility] [address] CALCIUM, [id number] 06:01:00 Test Item Value Reference Range Comments CALCIUM IONIZED (BEAKER) (test bzpy=511) 1.06 mmol/L 1.12-1.27 PH, BLOOD (BEAKER) (test rzpt=0946) 7.42 [id number] 05:52:00 Test Item Value Reference Range Comments PHOSPHORUS (BEAKER) (test obqg=776) 3.1 mg/dL 2.3-4.7 [id number] 05:52:00 Test Item Value Reference Range Comments MAGNESIUM (BEAKER) (test izwk=732) 2.3 mg/dL 1.6-2.6 BASIC METABOLIC [id number] 05:52:00 Test Item Value Reference Range Comments SODIUM (BEAKER) (test 130 meq/L 136-145 wvbi=134) POTASSIUM (BEAKER) (test 3.8 meq/L 3.5-5.1 citp=422) CHLORIDE (BEAKER) (test 98 meq/L 98-107 hmdk=355) CO2 (BEAKER) (test 22 meq/L 22-29 ykkq=561) BLOOD UREA NITROGEN 22 mg/dL 7-21 (BEAKER) (test hvyi=287) CREATININE (BEAKER) (test 1.37 mg/dL 0.57-1.25 svcp=300) GLUCOSE RANDOM (BEAKER) 118 mg/dL 70-105 (test uivh=611) CALCIUM (BEAKER) (test 9.6 mg/dL 8.4-10.2 eswn=947) EGFR (BEAKER) (test 54 mL/min/1.73 sq m ESTIMATED GFR IS NOT vwcw=1148) ACCURATE CREATININE CLEARANCE IN PREDICTING GLOMERULAR FILTRATION RATE. ESTIMATED GFR IS NOT APPLICABLE FOR DIALYSIS PATIENTS. Specimen slightly ictericCOMPREHENSIVE METABOLIC [id number] 05:52:00 Test Item Value Reference Range Comments TOTAL PROTEIN (BEAKER) 5.6 gm/dL 6.0-8.3 (test dekr=093) ALBUMIN (BEAKER) (test 3.6 g/dL 3.5-5.0 hpta=6596) ALKALINE PHOSPHATASE 146 U/L 40-150 (BEAKER) (test twkl=086) BILIRUBIN TOTAL (BEAKER) 2.5 mg/dL 0.2-1.2 (test qawu=108) SODIUM (BEAKER) (test 130 meq/L 136-145 ocfd=069) POTASSIUM (BEAKER) (test 3.8 meq/L 3.5-5.1 klgs=333) CHLORIDE (BEAKER) (test 98 meq/L 98-107 vdrc=951) CO2 (BEAKER) (test 22 meq/L 22-29 ekes=311) BLOOD UREA NITROGEN 22 mg/dL 7-21 (BEAKER) (test vnbh=545) CREATININE (BEAKER) (test 1.37 mg/dL 0.57-1.25 lgzz=074) GLUCOSE RANDOM (BEAKER) 118 mg/dL 70-105 (test xyng=654) CALCIUM (BEAKER) (test 9.6 mg/dL 8.4-10.2 dhwc=453) AST (SGOT) (BEAKER) (test 25 U/L 5-34 mmcb=619) ALT (SGPT) (BEAKER) (test 10 U/L 6-55 oanu=162) EGFR (BEAKER) (test 54 mL/min/1.73 sq m ESTIMATED GFR IS NOT onlt=3610) ACCURATE CREATININE CLEARANCE IN PREDICTING GLOMERULAR FILTRATION RATE. ESTIMATED GFR IS NOT APPLICABLE FOR DIALYSIS PATIENTS. Specimen slightly ictericBILIRUBIN, [id number] 05:52:00 Test Item Value Reference Range Comments BILIRUBIN DIRECT (BEAKER) (test gtyq=773) 1.6 mg/dL 0.1-0.5 PROTHROMBIN [id number] 05:41:00 Test Item Value Reference Range Comments PROTIME (BEAKER) (test jrpe=794) 21.3 seconds 11.7-14.7 INR (BEAKER) (test yylu=940) 1.8 <=5.9 RECOMMENDED COUMADIN/WARFARIN INR THERAPY RANGESSTANDARD DOSE: 2.0 - 3.0 Includes: PROPHYLAXIS forvenous thrombosis, systemic embolization; TREATMENT for venous thrombosis and/or pulmonary embolus.HIGH RISK: Target INR is 2.5-3.5 for patients with mechanical heart valves.CBC W/PLT COUNT & AUTO [id number] 05:32:00 Test Item Value Reference Range Comments WHITE BLOOD CELL COUNT (BEAKER) (test hbbc=806) 5.0 K/ L 3.5-10.5 RED BLOOD CELL COUNT (BEAKER) (test nona=055) 2.53 M/ L 4.63-6.08 HEMOGLOBIN (BEAKER) (test rckb=086) 8.1 GM/DL 13.7-17.5 HEMATOCRIT (BEAKER) (test fyth=845) 23.6 % 40.1-51.0 MEAN CORPUSCULAR VOLUME (BEAKER) (test iksp=999) 93.3 fL 79.0-92.2 MEAN CORPUSCULAR HEMOGLOBIN (BEAKER) (test 32.0 pg 25.7-32.2 thep=023) MEAN CORPUSCULAR HEMOGLOBIN CONC (BEAKER) (test 34.3 GM/DL 32.3-36.5 fzpm=982) RED CELL DISTRIBUTION WIDTH (BEAKER) (test 14.6 % 11.6-14.4 kzbo=349) PLATELET COUNT (BEAKER) (test lxcy=061) 73 K/CU MM 150-450 MEAN PLATELET VOLUME (BEAKER) (test yrxn=674) 8.8 fL 9.4-12.4 NUCLEATED RED BLOOD CELLS (BEAKER) (test 0 /100 WBC 0-0 kdim=985) NEUTROPHILS RELATIVE PERCENT (BEAKER) (test 71 % pphd=485) LYMPHOCYTES RELATIVE PERCENT (BEAKER) (test 10 % igtr=827) MONOCYTES RELATIVE PERCENT (BEAKER) (test 16 % bcvo=724) EOSINOPHILS RELATIVE PERCENT (BEAKER) (test 3 % vgqu=737) BASOPHILS RELATIVE PERCENT (BEAKER) (test 0 % xtby=605) NEUTROPHILS ABSOLUTE COUNT (BEAKER) (test 3.56 K/ L 1.78-5.38 agyr=552) LYMPHOCYTES ABSOLUTE COUNT (BEAKER) (test 0.48 K/ L 1.32-3.57 ogxy=427) MONOCYTES ABSOLUTE COUNT (BEAKER) (test vevn=712) 0.80 K/ L 0.30-0.82 EOSINOPHILS ABSOLUTE COUNT (BEAKER) (test 0.13 K/ L 0.04-0.54 tftp=434) BASOPHILS ABSOLUTE COUNT (BEAKER) (test juol=869) 0.01 K/ L 0.01-0.08 IMMATURE GRANULOCYTES-RELATIVE PERCENT (BEAKER) 1 % 0-1 (test czol=3955) POCT-GLUCOSE [id number] 21:24:00 Test Item Value Reference Range Comments POC-GLUCOSE METER (BEAKER) 137 mg/dL 70-110 TESTED AT [address] (test jlex=8091) [place] [address] POCT-GLUCOSE [id number] 17:52:00 Test Item Value Reference Range Comments POC-GLUCOSE METER (BEAKER) 166 mg/dL 70-110 TESTED AT [address] (test eylg=4634) [place] [id number] BASIC METABOLIC [id number] 17:48:00 Test Item Value Reference Range Comments SODIUM (BEAKER) (test 128 meq/L 136-145 snnb=732) POTASSIUM (BEAKER) (test 4.0 meq/L 3.5-5.1 cxgp=497) CHLORIDE (BEAKER) (test 97 meq/L 98-107 hhlw=645) CO2 (BEAKER) (test 23 meq/L 22-29 rlnh=743) BLOOD UREA NITROGEN 24 mg/dL 7-21 (BEAKER) (test bbli=655) CREATININE (BEAKER) (test 1.25 mg/dL 0.57-1.25 evlj=523) GLUCOSE RANDOM (BEAKER) 123 mg/dL 70-105 (test ucce=731) CALCIUM (BEAKER) (test 8.9 mg/dL 8.4-10.2 xorr=726) EGFR (BEAKER) (test 60 mL/min/1.73 sq m ESTIMATED GFR IS NOT qkzw=9820) ACCURATE CREATININE CLEARANCE IN PREDICTING GLOMERULAR FILTRATION RATE. ESTIMATED GFR IS NOT APPLICABLE FOR DIALYSIS PATIENTS. POCT-GLUCOSE [id number] 12:18:00 Test Item Value Reference Range Comments POC-GLUCOSE METER (BEAKER) 152 mg/dL 70-110 TESTED AT [address] (test qqao=4664) [place] [address] POCT-GLUCOSE [id number] 09:31:00 Test Item Value Reference Range Comments POC-GLUCOSE METER (BEAKER) 142 mg/dL 70-110 TESTED AT [address] (test cejd=9024) [place] [address] BASIC METABOLIC [id number] 09:03:00 Test Item Value Reference Range Comments SODIUM (BEAKER) (test 125 meq/L 136-145 qrha=150) POTASSIUM (BEAKER) (test 5.1 meq/L 3.5-5.1 Specimen slightly qdgx=410) hemolyzed CHLORIDE (BEAKER) (test 95 meq/L 98-107 hcwo=392) CO2 (BEAKER) (test 23 meq/L 22-29 cuix=350) BLOOD UREA NITROGEN 26 mg/dL 7-21 (BEAKER) (test bytb=720) CREATININE (BEAKER) (test 1.25 mg/dL 0.57-1.25 Specimen slightly qnpt=205) hemolyzed GLUCOSE RANDOM (BEAKER) 99 mg/dL 70-105 (test rjmi=021) CALCIUM (BEAKER) (test 9.0 mg/dL 8.4-10.2 jbmk=490) EGFR (BEAKER) (test 60 mL/min/1.73 sq m ESTIMATED GFR IS NOT pfvh=5757) ACCURATE CREATININE CLEARANCE IN PREDICTING GLOMERULAR FILTRATION RATE. ESTIMATED GFR IS NOT APPLICABLE FOR DIALYSIS PATIENTS. POCT-GLUCOSE [id number] 08:38:00 Test Item Value Reference Range Comments POC-GLUCOSE METER (BEAKER) 171 mg/dL 70-110 TESTED AT [address] (test rlvq=9781) [place] [address] [id number] 05:30:00 Test Item Value Reference Range Comments PHOSPHORUS (BEAKER) (test rhyp=338) 2.9 mg/dL 2.3-4.7 [id number] 05:30:00 Test Item Value Reference Range Comments MAGNESIUM (BEAKER) (test zweo=338) 2.2 mg/dL 1.6-2.6 COMPREHENSIVE METABOLIC [id number] 05:30:00 Test Item Value Reference Range Comments TOTAL PROTEIN (BEAKER) 5.2 gm/dL 6.0-8.3 (test gvqk=290) ALBUMIN (BEAKER) (test 3.4 g/dL 3.5-5.0 vnkj=9738) ALKALINE PHOSPHATASE 134 U/L 40-150 (BEAKER) (test eepo=464) BILIRUBIN TOTAL (BEAKER) 2.3 mg/dL 0.2-1.2 (test oyon=348) SODIUM (BEAKER) (test 124 meq/L 136-145 sslm=788) POTASSIUM (BEAKER) (test 4.9 meq/L 3.5-5.1 llst=053) CHLORIDE (BEAKER) (test 94 meq/L 98-107 ecnh=077) CO2 (BEAKER) (test 24 meq/L 22-29 qvif=847) BLOOD UREA NITROGEN 27 mg/dL 7-21 (BEAKER) (test rdxx=570) CREATININE (BEAKER) (test 1.27 mg/dL 0.57-1.25 zyfv=139) GLUCOSE RANDOM (BEAKER) 122 mg/dL 70-105 (test cfks=628) CALCIUM (BEAKER) (test 9.2 mg/dL 8.4-10.2 syja=965) AST (SGOT) (BEAKER) (test 24 U/L 5-34 snen=672) ALT (SGPT) (BEAKER) (test 10 U/L 6-55 axvz=751) EGFR (BEAKER) (test 59 mL/min/1.73 sq m ESTIMATED GFR IS NOT iapv=2801) ACCURATE CREATININE CLEARANCE IN PREDICTING GLOMERULAR FILTRATION RATE. ESTIMATED GFR IS NOT APPLICABLE FOR DIALYSIS PATIENTS. BILIRUBIN, [id number] 05:30:00 Test Item Value Reference Range Comments BILIRUBIN DIRECT (BEAKER) (test oaem=752) 1.5 mg/dL 0.1-0.5 PROTHROMBIN [id number] 05:09:00 Test Item Value Reference Range Comments PROTIME (BEAKER) (test jzlo=634) 22.3 seconds 11.7-14.7 INR (BEAKER) (test gdnt=337) 2.0 <=5.9 RECOMMENDED COUMADIN/WARFARIN INR THERAPY RANGESSTANDARD DOSE: 2.0 - 3.0 Includes: PROPHYLAXIS forvenous thrombosis, systemic embolization; TREATMENT for venous thrombosis and/or pulmonary embolus.HIGH RISK: Target INR is 2.5-3.5 for patients with mechanical heart valves.CBC W/PLT COUNT & AUTO [id number] 04:59:00 Test Item Value Reference Range Comments WHITE BLOOD CELL COUNT (BEAKER) (test bpyf=053) 5.0 K/ L 3.5-10.5 RED BLOOD CELL COUNT (BEAKER) (test wxjy=419) 2.24 M/ L 4.63-6.08 HEMOGLOBIN (BEAKER) (test sdnb=833) 7.2 GM/DL 13.7-17.5 HEMATOCRIT (BEAKER) (test lyly=941) 20.8 % 40.1-51.0 MEAN CORPUSCULAR VOLUME (BEAKER) (test gkul=365) 92.9 fL 79.0-92.2 MEAN CORPUSCULAR HEMOGLOBIN (BEAKER) (test 32.1 pg 25.7-32.2 frrj=545) MEAN CORPUSCULAR HEMOGLOBIN CONC (BEAKER) (test 34.6 GM/DL 32.3-36.5 cgjt=093) RED CELL DISTRIBUTION WIDTH (BEAKER) (test 14.2 % 11.6-14.4 uekw=727) PLATELET COUNT (BEAKER) (test ngiy=638) 56 K/CU MM 150-450 MEAN PLATELET VOLUME (BEAKER) (test urmt=020) 8.9 fL 9.4-12.4 NUCLEATED RED BLOOD CELLS (BEAKER) (test 0 /100 WBC 0-0 epgg=065) NEUTROPHILS RELATIVE PERCENT (BEAKER) (test 82 % dluc=698) LYMPHOCYTES RELATIVE PERCENT (BEAKER) (test 5 % muwg=336) MONOCYTES RELATIVE PERCENT (BEAKER) (test 12 % ycth=543) EOSINOPHILS RELATIVE PERCENT (BEAKER) (test 0 % tjuh=503) BASOPHILS RELATIVE PERCENT (BEAKER) (test 0 % qwei=500) NEUTROPHILS ABSOLUTE COUNT (BEAKER) (test 4.12 K/ L 1.78-5.38 ovmx=879) LYMPHOCYTES ABSOLUTE COUNT (BEAKER) (test 0.26 K/ L 1.32-3.57 hmrg=984) MONOCYTES ABSOLUTE COUNT (BEAKER) (test etuj=737) 0.59 K/ L 0.30-0.82 EOSINOPHILS ABSOLUTE COUNT (BEAKER) (test 0.00 K/ L 0.04-0.54 fbrp=809) BASOPHILS ABSOLUTE COUNT (BEAKER) (test jcvn=034) 0.00 K/ L 0.01-0.08 IMMATURE GRANULOCYTES-RELATIVE PERCENT (BEAKER) 1 % 0-1 (test ozdc=6310) CALCIUM, [id number] 04:57:00 Test Item Value Reference Range Comments CALCIUM IONIZED (BEAKER) (test kmjm=982) 1.14 mmol/L 1.12-1.27 PH, BLOOD (BEAKER) (test aiit=6172) 7.39 POCT-GLUCOSE [id number] 00:41:00 Test Item Value Reference Range Comments POC-GLUCOSE METER (BEAKER) 186 mg/dL 70-110 TESTED AT [facility] [address] [place] (test csnz=5922) [facility] [address] CORTISOL,60 [id number] 23:00:00 Test Item Value Reference Range Comments CORTISOL BASELINE NETWORKED (BEAKER) (test 7.5 mcg/dL yzsf=4416) CORTISOL 30 MINUTE NETWORKED (BEAKER) (test 14.1 mcg/dL qnxo=8325) CORTISOL, 60 MINUTE (BEAKER) (test xibb=1833) 18.9 ug/dL ACTH STIMULATION TEST INTERPRETATION GUIDELINES(Synonyms: [...] serum cortisollevel 60 minutes after cosyntropin administration.CORTISOL,30 [id number] 22:05:00 Test Item Value Reference Range Comments CORTISOL BASELINE NETWORKED (BEAKER) (test 7.5 mcg/dL pswo=3650) CORTISOL, 30 MINUTE (BEAKER) (test tjwo=6948) 14.1 ug/dL ACTH STIMULATION TEST INTERPRETATION GUIDELINES(Synonyms: [...] study by Mindy et al (NEVAEH 2000,283( 8):5382-45), the ACTH Stimulation Test provides important prognostic [...] cortisollevel 60 minutes after cosyntropin administration.BASIC METABOLIC [id number] 21:42:00 Test Item Value Reference Range Comments SODIUM (BEAKER) (test 123 meq/L 136-145 rrng=568) POTASSIUM (BEAKER) (test 4.3 meq/L 3.5-5.1 zxns=537) CHLORIDE (BEAKER) (test 93 meq/L 98-107 tpoz=253) CO2 (BEAKER) (test 24 meq/L 22-29 qjgp=216) BLOOD UREA NITROGEN 29 mg/dL 7-21 (BEAKER) (test nbtz=211) CREATININE (BEAKER) (test 1.38 mg/dL 0.57-1.25 jkmi=621) GLUCOSE RANDOM (BEAKER) 109 mg/dL 70-105 (test wsvm=229) CALCIUM (BEAKER) (test 9.2 mg/dL 8.4-10.2 zhca=127) EGFR (BEAKER) (test 54 mL/min/1.73 sq m ESTIMATED GFR IS NOT etgd=9144) ACCURATE CREATININE CLEARANCE IN PREDICTING GLOMERULAR FILTRATION RATE. ESTIMATED GFR IS NOT APPLICABLE FOR DIALYSIS PATIENTS. Call results to Dr Almendarez METABOLIC [id number] 18:03:00 Test Item Value Reference Range Comments SODIUM (BEAKER) (test 124 meq/L 136-145 unvu=868) POTASSIUM (BEAKER) (test 4.6 meq/L 3.5-5.1 reiy=213) CHLORIDE (BEAKER) (test 93 meq/L 98-107 shvp=247) CO2 (BEAKER) (test 25 meq/L 22-29 yimq=578) BLOOD UREA NITROGEN 32 mg/dL 7-21 (BEAKER) (test etty=175) CREATININE (BEAKER) (test 1.40 mg/dL 0.57-1.25 xbeo=323) GLUCOSE RANDOM (BEAKER) 94 mg/dL 70-105 (test cqib=160) CALCIUM (BEAKER) (test 9.0 mg/dL 8.4-10.2 oguo=675) EGFR (BEAKER) (test 53 mL/min/1.73 sq m ESTIMATED GFR IS NOT stny=6664) ACCURATE CREATININE CLEARANCE IN PREDICTING GLOMERULAR FILTRATION RATE. ESTIMATED GFR IS NOT APPLICABLE FOR DIALYSIS PATIENTS. BODY FLUID CELL COUNT WITH [id number] 13:54:00 Test Item Value Reference Range Comments APPEARANCE FLUID (BEAKER) (test hkul=456) Slightly Hazy Clear COLOR FLUID (BEAKER) (test whab=047) Yellow Colorless, Straw RBC FLUID (BEAKER) (test gbjm=393) 1000 /cu mm <=1 ADJUSTED WBC FLUID (BEAKER) (test dckl=6349) 54 /cu mm <=5 LINING CELLS (BEAKER) (test wqss=4331) 2 /cu mm <=1 NEUTROPHILS FLUID (BEAKER) (test adss=4747) 6 % LYMPHS FLUID (BEAKER) (test coht=518) 25 % MONO/MACROPHAGE FLUID (BEAKER) (test 69 % mzpy=393) EOSINOPHILS FLUID (BEAKER) (test lctq=726) 0 % BASO FLUID (BEAKER) (test jpiu=545) 0 % CONTAINER BODY FLUID (BEAKER) (test Sterile Vial pskl=0261) ALBUMIN, BODY [id number] 13:45:00 Test Item Value Reference Range Comments ALBUMIN FLUID (BEAKER) (test admy=801) 0.8 gm/dL Reference Range: No Normals Assay performance has not been validated for this type of specimen.LACTATE DEHYDROGENASE (LDH), BODY [id number] 13:13:00 Test Item Value Reference Range Comments LACTATE DEHYDROGENASE FLUID (BEAKER) (test hrhk=597) < U/L Absence of reference range indicates that normals have not been defined.Assay performance has not been validated for this type of specimen.GLUCOSE, BODY [id number] 13:13:00 Test Item Value Reference Range Comments GLUCOSE, BODY FLUID (BEAKER) (test fgvh=6922) 82 mg/dL Absence of reference range indicates that normals have not been defined.Assay performance has not been validated for this type of specimen.TRIGLYCERIDES, BODY [id number] 13:10:00 Test Item Value Reference Range Comments TRIGLYCERIDES FLUID (BEAKER) (test eqxy=932) 39 mg/dL Reference Range: No Normals Assay performance has not been validated for this type of specimen.PROTEIN, BODY [id number] 13:09:00 Test Item Value Reference Range Comments PROTEIN FLUID (BEAKER) (test fdmv=369) 1.2 g/dL Absence of reference range indicates that normals have not been defined.Assay performance has not been validated for this type of specimen.CORTISOL, [id number] 12:52:00 Test Item Value Reference Range Comments CORTISOL, BASELINE (BEAKER) (test thuc=8719) 7.5 ug/dL ACTH STIMULATION TEST INTERPRETATION GUIDELINES(Synonyms: [...] cortisollevel 60 minutes after cosyntropin administration.BASIC METABOLIC [id number] 12:40:00 Test Item Value Reference Range Comments SODIUM (BEAKER) (test 119 meq/L 136-145 nmiz=745) POTASSIUM (BEAKER) (test 5.2 meq/L 3.5-5.1 mqvm=776) CHLORIDE (BEAKER) (test 90 meq/L 98-107 ydyz=878) CO2 (BEAKER) (test 23 meq/L 22-29 glgz=122) BLOOD UREA NITROGEN 34 mg/dL 7-21 (BEAKER) (test eaan=338) CREATININE (BEAKER) (test 1.46 mg/dL 0.57-1.25 pihm=713) GLUCOSE RANDOM (BEAKER) 84 mg/dL 70-105 (test hhnn=123) CALCIUM (BEAKER) (test 8.8 mg/dL 8.4-10.2 bqln=706) EGFR (BEAKER) (test 51 mL/min/1.73 sq m ESTIMATED GFR IS NOT wcus=6483) ACCURATE CREATININE CLEARANCE IN PREDICTING GLOMERULAR FILTRATION RATE. ESTIMATED GFR IS NOT APPLICABLE FOR DIALYSIS PATIENTS. Specimen slightly ictericRAD, CHEST, 1 VIEW, NON [id number] 11:50:00Reason for exam:->coughShould this be performed at the bedside?->YesFINAL REPORT Chest one view compared to May 12, 2018 Discussion: There is diffuse interstitial prominence. No effusion or pneumothorax. Heart size normal. IMPRESSIONS: No changeSigned: Nisbet, Karina MDReport Verified Date/ Time: 08/26/2018 11:50:19 Reading Location: [facility] Reading Room BASIC METABOLIC [id number] 09:35:00 Test Item Value Reference Range Comments SODIUM (BEAKER) (test 119 meq/L 136-145 sozb=464) POTASSIUM (BEAKER) (test 4.9 meq/L 3.5-5.1 vgmb=929) CHLORIDE (BEAKER) (test 89 meq/L 98-107 qhkk=515) CO2 (BEAKER) (test 23 meq/L 22-29 iqpp=279) BLOOD UREA NITROGEN 36 mg/dL 7-21 (BEAKER) (test nrwu=482) CREATININE (BEAKER) (test 1.46 mg/dL 0.57-1.25 bfjm=581) GLUCOSE RANDOM (BEAKER) 83 mg/dL 70-105 (test uoum=084) CALCIUM (BEAKER) (test 8.8 mg/dL 8.4-10.2 cttp=464) EGFR (BEAKER) (test 51 mL/min/1.73 sq m ESTIMATED GFR IS NOT mjpe=3112) ACCURATE CREATININE CLEARANCE IN PREDICTING GLOMERULAR FILTRATION RATE. ESTIMATED GFR IS NOT APPLICABLE FOR DIALYSIS PATIENTS. POCT-GLUCOSE [id number] 05:56:00 Test Item Value Reference Range Comments POC-GLUCOSE METER (BEAKER) 86 mg/dL 70-110 TESTED AT [facility] [address], [place] (test yczs=8691) [facility] [address] CBC W/PLT COUNT & AUTO [id number] 04:42:00 Test Item Value Reference Range Comments WHITE BLOOD CELL COUNT (BEAKER) (test qbpp=067) 10.5 K/ L 3.5-10.5 RED BLOOD CELL COUNT (BEAKER) (test qkrl=086) 2.37 M/ L 4.63-6.08 HEMOGLOBIN (BEAKER) (test mgwt=633) 7.4 GM/DL 13.7-17.5 HEMATOCRIT (BEAKER) (test ivwf=175) 21.6 % 40.1-51.0 MEAN CORPUSCULAR VOLUME (BEAKER) (test ihop=931) 91.1 fL 79.0-92.2 MEAN CORPUSCULAR HEMOGLOBIN (BEAKER) (test 31.2 pg 25.7-32.2 xjod=350) MEAN CORPUSCULAR HEMOGLOBIN CONC (BEAKER) (test 34.3 GM/DL 32.3-36.5 chbn=500) RED CELL DISTRIBUTION WIDTH (BEAKER) (test 14.4 % 11.6-14.4 xliv=008) PLATELET COUNT (BEAKER) (test jqwc=851) 67 K/CU MM 150-450 MEAN PLATELET VOLUME (BEAKER) (test tmqt=849) 8.3 fL 9.4-12.4 NUCLEATED RED BLOOD CELLS (BEAKER) (test 0 /100 WBC 0-0 duko=813) NEUTROPHILS RELATIVE PERCENT (BEAKER) (test 82 % fycq=758) LYMPHOCYTES RELATIVE PERCENT (BEAKER) (test 4 % ilxf=958) MONOCYTES RELATIVE PERCENT (BEAKER) (test 12 % jktn=281) EOSINOPHILS RELATIVE PERCENT (BEAKER) (test 1 % obuc=002) BASOPHILS RELATIVE PERCENT (BEAKER) (test 0 % oevt=220) NEUTROPHILS ABSOLUTE COUNT (BEAKER) (test 8.62 K/ L 1.78-5.38 gsvh=229) LYMPHOCYTES ABSOLUTE COUNT (BEAKER) (test 0.45 K/ L 1.32-3.57 sdvx=681) MONOCYTES ABSOLUTE COUNT (BEAKER) (test mlko=970) 1.31 K/ L 0.30-0.82 EOSINOPHILS ABSOLUTE COUNT (BEAKER) (test 0.10 K/ L 0.04-0.54 vcxz=573) BASOPHILS ABSOLUTE COUNT (BEAKER) (test morl=132) 0.00 K/ L 0.01-0.08 IMMATURE GRANULOCYTES-RELATIVE PERCENT (BEAKER) 1 % 0-1 (test ytfw=3202) COMPREHENSIVE METABOLIC [id number] 04:36:00 Test Item Value Reference Range Comments TOTAL PROTEIN (BEAKER) 4.9 gm/dL 6.0-8.3 (test fsgu=737) ALBUMIN (BEAKER) (test 2.8 g/dL 3.5-5.0 vqes=2783) ALKALINE PHOSPHATASE 146 U/L 40-150 (BEAKER) (test eccs=174) BILIRUBIN TOTAL (BEAKER) 2.9 mg/dL 0.2-1.2 (test kqez=464) SODIUM (BEAKER) (test 118 meq/L 136-145 hzkb=110) POTASSIUM (BEAKER) (test 5.2 meq/L 3.5-5.1 yvow=279) CHLORIDE (BEAKER) (test 90 meq/L 98-107 imof=981) CO2 (BEAKER) (test 23 meq/L 22-29 wdvc=814) BLOOD UREA NITROGEN 37 mg/dL 7-21 (BEAKER) (test swbn=220) CREATININE (BEAKER) (test 1.47 mg/dL 0.57-1.25 nhen=556) GLUCOSE RANDOM (BEAKER) 65 mg/dL 70-105 (test omxw=513) CALCIUM (BEAKER) (test 8.9 mg/dL 8.4-10.2 qfjo=056) AST (SGOT) (BEAKER) (test 29 U/L 5-34 wakc=196) ALT (SGPT) (BEAKER) (test 10 U/L 6-55 tcqt=228) EGFR (BEAKER) (test 50 mL/min/1.73 sq m ESTIMATED GFR IS NOT rrfu=0753) ACCURATE CREATININE CLEARANCE IN PREDICTING GLOMERULAR FILTRATION RATE. ESTIMATED GFR IS NOT APPLICABLE FOR DIALYSIS PATIENTS. Specimen slightly [id number] 04:33:00 Test Item Value Reference Range Comments PHOSPHORUS (BEAKER) (test ilty=830) 3.1 mg/dL 2.3-4.7 [id number] 04:33:00 Test Item Value Reference Range Comments MAGNESIUM (BEAKER) (test yufn=607) 2.1 mg/dL 1.6-2.6 CALCIUM, [id number] 04:05:00 Test Item Value Reference Range Comments CALCIUM IONIZED (BEAKER) (test qtnf=064) 1.13 mmol/L 1.12-1.27 PH, BLOOD (BEAKER) (test zjlb=3279) 7.38 BASIC METABOLIC [id number] 01:34:00 Test Item Value Reference Range Comments SODIUM (BEAKER) (test 117 meq/L 136-145 zxwi=982) POTASSIUM (BEAKER) (test 4.9 meq/L 3.5-5.1 gzre=694) CHLORIDE (BEAKER) (test 89 meq/L 98-107 zkwn=103) CO2 (BEAKER) (test 22 meq/L 22-29 zzhk=807) BLOOD UREA NITROGEN 37 mg/dL 7-21 (BEAKER) (test lmyz=283) CREATININE (BEAKER) (test 1.52 mg/dL 0.57-1.25 txeb=717) GLUCOSE RANDOM (BEAKER) 67 mg/dL 70-105 (test sxgz=530) CALCIUM (BEAKER) (test 9.1 mg/dL 8.4-10.2 agho=326) EGFR (BEAKER) (test 48 mL/min/1.73 sq m ESTIMATED GFR IS NOT nony=6233) ACCURATE CREATININE CLEARANCE IN PREDICTING GLOMERULAR FILTRATION RATE. ESTIMATED GFR IS NOT APPLICABLE FOR DIALYSIS PATIENTS. Specimen slightly ictericU/S, ABDOMINAL, [id number] 23:49:00Abdomen limited area? Add comment if clarification [...] Augusteeport Verified Date/Time: 08/25/2018 23:49:36 Reading Location: [facility] B1 C[address]Y [facility] Body Reading Room POCT-GLUCOSE [id number] 23:16:00 Test Item Value Reference Range Comments POC-GLUCOSE METER (BEAKER) 89 mg/dL 70-110 TESTED AT [facility] [address], [place] (test lfpb=9959) [facility] [address] COMPREHENSIVE METABOLIC [id number] 21:15:00 Test Item Value Reference Range Comments TOTAL PROTEIN (BEAKER) 5.4 gm/dL 6.0-8.3 (test oqha=947) ALBUMIN (BEAKER) (test 3.1 g/dL 3.5-5.0 jtai=8447) ALKALINE PHOSPHATASE 164 U/L 40-150 (BEAKER) (test fwou=455) BILIRUBIN TOTAL (BEAKER) 3.1 mg/dL 0.2-1.2 (test fmvu=559) SODIUM (BEAKER) (test 116 meq/L 136-145 wubo=320) POTASSIUM (BEAKER) (test 5.0 meq/L 3.5-5.1 umhk=555) CHLORIDE (BEAKER) (test 87 meq/L 98-107 apzg=891) CO2 (BEAKER) (test 22 meq/L 22-29 azzb=035) BLOOD UREA NITROGEN 38 mg/dL 7-21 (BEAKER) (test uwtw=669) CREATININE (BEAKER) (test 1.52 mg/dL 0.57-1.25 pbgt=069) GLUCOSE RANDOM (BEAKER) 67 mg/dL 70-105 (test ujct=478) CALCIUM (BEAKER) (test 9.1 mg/dL 8.4-10.2 giwi=365) AST (SGOT) (BEAKER) (test 30 U/L 5-34 wruq=219) ALT (SGPT) (BEAKER) (test 10 U/L 6-55 efjc=166) EGFR (BEAKER) (test 48 mL/min/1.73 sq m ESTIMATED GFR IS NOT cqnw=5729) ACCURATE CREATININE CLEARANCE IN PREDICTING GLOMERULAR FILTRATION RATE. ESTIMATED GFR IS NOT APPLICABLE FOR DIALYSIS PATIENTS. Recheck and call Dr. Solorio with results [phone] slightly ictericBASIC METABOLIC [id number] 17:36:00 Test Item Value Reference Range Comments SODIUM (BEAKER) (test 119 meq/L 136-145 jfos=620) POTASSIUM (BEAKER) (test 5.0 meq/L 3.5-5.1 anzq=893) CHLORIDE (BEAKER) (test 89 meq/L 98-107 myei=758) CO2 (BEAKER) (test 22 meq/L 22-29 nbro=172) BLOOD UREA NITROGEN 38 mg/dL 7-21 (BEAKER) (test icfd=059) CREATININE (BEAKER) (test 1.50 mg/dL 0.57-1.25 zpfd=701) GLUCOSE RANDOM (BEAKER) 70 mg/dL 70-105 (test vxnc=101) CALCIUM (BEAKER) (test 8.9 mg/dL 8.4-10.2 gyzu=057) EGFR (BEAKER) (test 49 mL/min/1.73 sq m ESTIMATED GFR IS NOT cpsx=8882) ACCURATE CREATININE CLEARANCE IN PREDICTING GLOMERULAR FILTRATION RATE. ESTIMATED GFR IS NOT APPLICABLE FOR DIALYSIS PATIENTS. Specimen slightly ictericCT, CHEST, WITH HIGH RESOLUTION, INTERSTITAL LUNG [id number] 17:36:00Reason for exam:->follow up for lung noduleFINAL [...] MDReport Verified Date/Time: 08/25/2018 17:36:51 Reading Location: [facility] B1 C013Y CT Body Reading Room CT, SPINE, LUMBAR, WO [id number] 17:06:00FINAL REPORT CT thoracic and lumbar spine [...] Bain Verified Date/Time: 08/25/2018 17:06:21 Reading Location: [facility] Radiology Reading Room CT, SPINE, THORACIC, WO [id number] 17:06:00FINAL REPORT CT thoracic and lumbar spine [...] Verified Date/Time: 08/25/2018 17: 06:21 Reading Location: [facility] Radiology Reading Room EOSINOPHIL SMEAR, [id number] 16:40:00 Test Item Value Reference Range Comments EOSINOPHIL SMEAR, URINE (BEAKER) (test No EOS seen No EOS seen pile=3188) SODIUM, RANDOM [id number] 15:13:00 Test Item Value Reference Range Comments SODIUM URINE (BEAKER) (test hjnt=346) < meq/L Reference Range: No NormalsCOMPREHENSIVE METABOLIC [id number] 15:12:00 Test Item Value Reference Range Comments TOTAL PROTEIN (BEAKER) 5.0 gm/dL 6.0-8.3 (test qwgk=061) ALBUMIN (BEAKER) (test 2.9 g/dL 3.5-5.0 upsy=0237) ALKALINE PHOSPHATASE 154 U/L 40-150 (BEAKER) (test oefk=021) BILIRUBIN TOTAL (BEAKER) 3.1 mg/dL 0.2-1.2 (test lhxc=456) SODIUM (BEAKER) (test 116 meq/L 136-145 xeps=594) POTASSIUM (BEAKER) (test 4.8 meq/L 3.5-5.1 fmgt=842) CHLORIDE (BEAKER) (test 87 meq/L 98-107 odjx=921) CO2 (BEAKER) (test 24 meq/L 22-29 xiau=716) BLOOD UREA NITROGEN 39 mg/dL 7-21 (BEAKER) (test wlfo=869) CREATININE (BEAKER) (test 1.53 mg/dL 0.57-1.25 vykd=102) GLUCOSE RANDOM (BEAKER) 67 mg/dL 70-105 (test dgfz=118) CALCIUM (BEAKER) (test 8.6 mg/dL 8.4-10.2 yjyv=522) AST (SGOT) (BEAKER) (test 24 U/L 5-34 vbrb=798) ALT (SGPT) (BEAKER) (test 11 U/L 6-55 thzg=925) EGFR (BEAKER) (test 48 mL/min/1.73 sq m ESTIMATED GFR IS NOT paay=2010) ACCURATE CREATININE CLEARANCE IN PREDICTING GLOMERULAR FILTRATION RATE. ESTIMATED GFR IS NOT APPLICABLE FOR DIALYSIS PATIENTS. Specimen slightly ictericPROTEIN, RANDOM [id number] 15:12:00 Test Item Value Reference Range Comments PROTEIN, URINE (BEAKER) (test sovs=8863) < mg/dL 0-14 CREATININE, RANDOM [id number] 15:10:00 Test Item Value Reference Range Comments CREATININE URINE (BEAKER) (test lvmo=396) 75.0 mg/dL Reference Range: No NormalsURINALYSIS W/ [id number] 14:55:00 Test Item Value Reference Range Comments COLOR (BEAKER) (test dqqo=730) Yellow CLARITY (BEAKER) (test pygn=230) Hazy SPECIFIC GRAVITY UA (BEAKER) (test kceg=867) 1.009 1.001-1.035 PH UA (BEAKER) (test ofsa=343) 5.5 5.0-8.0 PROTEIN UA (BEAKER) (test coss=606) Negative Negative GLUCOSE UA (BEAKER) (test nyvj=269) Negative Negative KETONES UA (BEAKER) (test ttao=648) Negative Negative BILIRUBIN UA (BEAKER) (test deud=359) Negative Negative BLOOD UA (BEAKER) (test qhzt=541) Small Negative NITRITE UA (BEAKER) (test pvmp=038) Negative Negative LEUKOCYTE ESTERASE UA (BEAKER) (test baqb=974) Negative Negative UROBILINOGEN UA (BEAKER) (test tcau=273) 0.2 mg/dL 0.2-1.0 RBC UA (BEAKER) (test hogn=058) 20 /HPF WBC UA (BEAKER) (test ofkn=233) 27 /HPF SQUAMOUS EPITHELIAL (BEAKER) (test zfij=238) 18 /HPF SOURCE(BEAKER) (test jcwv=6234) URINALYSIS W/ REFLEX URINE [id number] 14:47:00 Test Item Value Reference Range Comments COLOR (BEAKER) (test ffas=800) Yellow CLARITY (BEAKER) (test owxl=784) Hazy SPECIFIC GRAVITY UA (BEAKER) (test slrf=595) 1.010 1.001-1.035 PH UA (BEAKER) (test cvoe=587) 5.5 5.0-8.0 PROTEIN UA (BEAKER) (test zxlx=068) Negative Negative GLUCOSE UA (BEAKER) (test rytu=268) Negative Negative KETONES UA (BEAKER) (test nvcf=779) Negative Negative BILIRUBIN UA (BEAKER) (test bypd=984) Negative Negative BLOOD UA (BEAKER) (test fzts=374) Small Negative NITRITE UA (BEAKER) (test vfjr=122) Negative Negative LEUKOCYTE ESTERASE UA (BEAKER) (test jqzo=838) Negative Negative UROBILINOGEN UA (BEAKER) (test lfjv=371) 0.2 mg/dL 0.2-1.0 RBC UA (BEAKER) (test jqhr=319) 38 /HPF WBC UA (BEAKER) (test rwyh=746) 7 /HPF SQUAMOUS EPITHELIAL (BEAKER) (test hbbi=160) 18 /HPF AMORPHOUS CRYSTALS (BEAKER) (test xgcy=8524) Rare SOURCE(BEAKER) (test cjnv=4523) OSMOLALITY, [id number] 14:40:00 Test Item Value Reference Range Comments OSMOLALITY URINE (BEAKER) (test ctwz=155) 284 mOsm/kg 40-1,400 [id number] 13:34:00 Test Item Value Reference Range Comments PROCALCITONIN (BEAKER) (test kghx=3495) 0.25 ng/mL <0.05 SEPSIS RISK (ng/mL)Low: 0.05-0.50Intermediate: 0.51-2.00High: & gt;=2.01OSMOLALITY, [id number] 12:43:00 Test Item Value Reference Range Comments OSMOLALITY URINE (BEAKER) (test lhaj=495) 316 mOsm/kg 40-1,400 OSMOLALITY, [id number] 12:41:00 Test Item Value Reference Range Comments OSMOLALITY, SERUM (BEAKER) (test ukmt=063) 259 mOsm/kg 275-295 TSH/FREE T4 IF [id number] 11:36:00 Test Item Value Reference Range Comments THYROID STIMULATING HORMONE (BEAKER) (test 2.55 uIU/mL 0.35-4.94 lusd=170) [id number] 11:34:00 Test Item Value Reference Range Comments CORTISOL, TOTAL (BEAKER) (test amnl=7983) 7.9 ug/dL 3.7-19.4 SODIUM, RANDOM [id number] 11:34:00 Test Item Value Reference Range Comments SODIUM URINE (BEAKER) (test cxxf=650) < meq/L Reference Range: No NormalsBASIC METABOLIC [id number] 11:24:00 Test Item Value Reference Range Comments SODIUM (BEAKER) (test 113 meq/L 136-145 rjpe=385) POTASSIUM (BEAKER) (test 5.3 meq/L 3.5-5.1 xvxs=158) CHLORIDE (BEAKER) (test 86 meq/L 98-107 wtqd=277) CO2 (BEAKER) (test 21 meq/L 22-29 dexl=537) BLOOD UREA NITROGEN 39 mg/dL 7-21 (BEAKER) (test deeo=766) CREATININE (BEAKER) (test 1.57 mg/dL 0.57-1.25 omwp=218) GLUCOSE RANDOM (BEAKER) 64 mg/dL 70-105 (test jzyu=564) CALCIUM (BEAKER) (test 9.1 mg/dL 8.4-10.2 mqzm=431) EGFR (BEAKER) (test 46 mL/min/1.73 sq m ESTIMATED GFR IS NOT jwqe=9478) ACCURATE CREATININE CLEARANCE IN PREDICTING GLOMERULAR FILTRATION RATE. ESTIMATED GFR IS NOT APPLICABLE FOR DIALYSIS PATIENTS. Specimen slightly ictericURIC [id number] 11:21:00 Test Item Value Reference Range Comments URIC ACID (BEAKER) (test wwns=754) 8.2 mg/dL 2.6-7.2 Specimen slightly ictericCREATININE, RANDOM [id number] 11:21:00 Test Item Value Reference Range Comments CREATININE URINE (BEAKER) (test mxfm=179) 81.9 mg/dL Reference Range: No NormalsPOTASSIUM, RANDOM [id number] 11:21:00 Test Item Value Reference Range Comments POTASSIUM URINE (BEAKER) (test thxc=433) 19.2 meq/L Reference Range: No NormalsCBC W/PLT COUNT & AUTO [id number] 10: 20:00 Test Item Value Reference Range Comments WHITE BLOOD CELL COUNT (BEAKER) (test cbsb=055) 10.9 K/ L 3.5-10.5 RED BLOOD CELL COUNT (BEAKER) (test xquw=858) 2.46 M/ L 4.63-6.08 HEMOGLOBIN (BEAKER) (test xbuq=023) 7.9 GM/DL 13.7-17.5 HEMATOCRIT (BEAKER) (test bqcy=419) 22.2 % 40.1-51.0 MEAN CORPUSCULAR VOLUME (BEAKER) (test yyqr=697) 90.2 fL 79.0-92.2 MEAN CORPUSCULAR HEMOGLOBIN (BEAKER) (test 32.1 pg 25.7-32.2 fmrg=133) MEAN CORPUSCULAR HEMOGLOBIN CONC (BEAKER) (test 35.6 GM/DL 32.3-36.5 hahj=806) RED CELL DISTRIBUTION WIDTH (BEAKER) (test 14.2 % 11.6-14.4 lquc=449) PLATELET COUNT (BEAKER) (test syfp=957) 82 K/CU MM 150-450 MEAN PLATELET VOLUME (BEAKER) (test amvq=742) 8.3 fL 9.4-12.4 NUCLEATED RED BLOOD CELLS (BEAKER) (test 0 /100 WBC 0-0 htxu=419) (CELLAVISION MANUAL DIFF)[id number] 10:20:00 Test Item Value Reference Range Comments NEUTROPHILS - REL (CELLAVISION)(BEAKER) (test 80 % vfld=1006) LYMPHOCYTES - REL (CELLAVISION)(BEAKER) (test 2 % ztrg=7647) MONOCYTES - REL (CELLAVISION)(BEAKER) (test 6 % aeia=9373) BANDS - REL (CELLAVISION)(BEAKER) (test 12 % 0-10 pcnn=8754) NEUTROPHILS - ABS (CELLAVISION)(BEAKER) (test 8.72 K/ul 1.78-5.38 raga=1380) LYMPHOCYTES - ABS (CELLAVISION)(BEAKER) (test 0.22 K/ul 1.32-3.57 rbzo=1352) MONOCYTES - ABS (CELLAVISION)(BEAKER) (test 0.65 K/uL 0.30-0.82 hrdf=4279) BANDS - ABS (CELLAVISION)(BEAKER) (test 1.31 K/uL 0.00-0.80 ntha=7224) TOTAL COUNTED (BEAKER) (test ibpg=4812) 100 WBC MORPHOLOGY (BEAKER) (test kjal=142) Normal PLT MORPHOLOGY (BEAKER) (test ijfe=808) Normal POLYCHROMATOPHILLIC RBCS(BEAKER) (test onpm=954) 2+ moderate ANISOCYTOSIS (BEAKER) (test kgnu=900) 2+ moderate POIKILOCYTES (BEAKER) (test rgml=164) 2+ moderate ARTIFACT (CELLAVISION)(BEAKER) (test uayz=8669) Present PLATELET CONCENTRATION (CELLAVISION)(BEAKER) Decreased (test pxyo=7772) Received comment: User comments: Slide comments:COMPREHENSIVE METABOLIC [id number] 09:30:00 Test Item Value Reference Range Comments TOTAL PROTEIN (BEAKER) 5.2 gm/dL 6.0-8.3 (test kndg=000) ALBUMIN (BEAKER) (test 3.0 g/dL 3.5-5.0 fsec=9854) ALKALINE PHOSPHATASE 158 U/L 40-150 (BEAKER) (test ivdf=050) BILIRUBIN TOTAL (BEAKER) 2.9 mg/dL 0.2-1.2 (test kvry=956) SODIUM (BEAKER) (test 111 meq/L 136-145 okec=865) POTASSIUM (BEAKER) (test 5.5 meq/L 3.5-5.1 alge=455) CHLORIDE (BEAKER) (test 87 meq/L 98-107 bdxc=022) CO2 (BEAKER) (test 20 meq/L 22-29 zhmz=959) BLOOD UREA NITROGEN 39 mg/dL 7-21 (BEAKER) (test mnbs=414) CREATININE (BEAKER) (test 1.55 mg/dL 0.57-1.25 qwse=253) GLUCOSE RANDOM (BEAKER) 79 mg/dL 70-105 (test liyb=457) CALCIUM (BEAKER) (test 9.0 mg/dL 8.4-10.2 rhpp=949) AST (SGOT) (BEAKER) (test 27 U/L 5-34 ppgx=767) ALT (SGPT) (BEAKER) (test 9 U/L 6-55 sltj=190) EGFR (BEAKER) (test 47 mL/min/1.73 sq m ESTIMATED GFR IS NOT wgfr=9107) ACCURATE CREATININE CLEARANCE IN PREDICTING GLOMERULAR FILTRATION RATE. ESTIMATED GFR IS NOT APPLICABLE FOR DIALYSIS PATIENTS. Specimen slightly ictericLACTIC ACID, VENOUS, WHOLE [id number] 09:15:00 Test Item Value Reference Range Comments LACTATE BLOOD VENOUS (2) (BEAKER) (test 0.9 mmol/L 0.5-2.2 ttar=4576) Effective 02/28/2016: Units/Reference Range ChangeNew: 0.5-2.2 mmol/L Previous: 5 -20 mg/dLSpecimen slightly [id number] 09:01:00 Test Item Value Reference Range Comments AMMONIA (BEAKER) (test tajv=274) 83 mol/L 18-72 PT/[id number] 08:54:00 Test Item Value Reference Range Comments PROTIME (BEAKER) (test fwih=362) 21.4 seconds 11.7-14.7 INR (BEAKER) (test lnpg=407) 1.9 <=5.9 PARTIAL THROMBOPLASTIN TIME (BEAKER) (test 44.2 seconds 22.5-36.0 xdsu=242) RECOMMENDED COUMADIN/WARFARIN INR THERAPY RANGESSTANDARD DOSE: 2.0 - 3.0 Includes: PROPHYLAXIS forvenous thrombosis, systemic embolization; TREATMENT for venous thrombosis and/or pulmonary embolus.HIGH RISK: Target INR is 2.5-3.5 for patients with mechanical heart valves.PROTHROMBIN TIME/[id number] 08:53: 00 Test Item Value Reference Range Comments PROTIME (BEAKER) (test fsmy=938) 21.4 seconds 11.7-14.7 INR (BEAKER) (test zzst=226) 1.9 <=5.9 RECOMMENDED COUMADIN/WARFARIN INR THERAPY RANGESSTANDARD DOSE: 2.0 - 3.0 Includes: PROPHYLAXIS forvenous thrombosis, systemic embolization; TREATMENT for venous thrombosis and/or pulmonary embolus.HIGH RISK: Target INR is 2.5-3.5 for patients with mechanical heart valves.COMPREHENSIVE METABOLIC [id number] 13:54:00 Test Item Value Reference Range Comments TOTAL PROTEIN (BEAKER) 6.2 gm/dL 6.0-8.3 (test wdcz=218) ALBUMIN (BEAKER) (test 3.4 g/dL 3.5-5.0 strr=6521) ALKALINE PHOSPHATASE 190 U/L 40-150 (BEAKER) (test fgbu=827) BILIRUBIN TOTAL (BEAKER) 1.9 mg/dL 0.2-1.2 (test zmwa=604) SODIUM (BEAKER) (test 125 meq/L 136-145 daqn=708) POTASSIUM (BEAKER) (test 5.0 meq/L 3.5-5.1 mgui=556) CHLORIDE (BEAKER) (test 99 meq/L 98-107 hxkl=562) CO2 (BEAKER) (test 19 meq/L 22-29 ukpp=630) BLOOD UREA NITROGEN 36 mg/dL 7-21 (BEAKER) (test vkii=959) CREATININE (BEAKER) (test 1.65 mg/dL 0.57-1.25 ihic=485) GLUCOSE RANDOM (BEAKER) 133 mg/dL 70-105 (test ddpw=058) CALCIUM (BEAKER) (test 9.5 mg/dL 8.4-10.2 fsdc=149) AST (SGOT) (BEAKER) (test 23 U/L 5-34 pqfr=921) ALT (SGPT) (BEAKER) (test 12 U/L 6-55 ermd=689) EGFR (BEAKER) (test 44 mL/min/1.73 sq m ESTIMATED GFR IS NOT hvdk=0799) ACCURATE CREATININE CLEARANCE IN PREDICTING GLOMERULAR FILTRATION RATE. ESTIMATED GFR IS NOT APPLICABLE FOR DIALYSIS PATIENTS. BILIRUBIN, [id number] 13:54:00 Test Item Value Reference Range Comments BILIRUBIN DIRECT (BEAKER) (test snyd=556) 1.4 mg/dL 0.1-0.5 CBC W/PLT COUNT & AUTO [id number] 13:50:00 Test Item Value Reference Range Comments WHITE BLOOD CELL COUNT (BEAKER) (test druo=014) 6.8 K/ L 3.5-10.5 RED BLOOD CELL COUNT (BEAKER) (test dmbp=806) 3.01 M/ L 4.63-6.08 HEMOGLOBIN (BEAKER) (test zmyu=535) 9.5 GM/DL 13.7-17.5 HEMATOCRIT (BEAKER) (test mdhq=590) 28.3 % 40.1-51.0 MEAN CORPUSCULAR VOLUME (BEAKER) (test bezt=851) 94.0 fL 79.0-92.2 MEAN CORPUSCULAR HEMOGLOBIN (BEAKER) (test 31.6 pg 25.7-32.2 blih=116) MEAN CORPUSCULAR HEMOGLOBIN CONC (BEAKER) (test 33.6 GM/DL 32.3-36.5 xapq=219) RED CELL DISTRIBUTION WIDTH (BEAKER) (test 14.5 % 11.6-14.4 dlxe=989) PLATELET COUNT (BEAKER) (test tljj=894) 131 K/CU MM 150-450 MEAN PLATELET VOLUME (BEAKER) (test xztx=583) 9.0 fL 9.4-12.4 NUCLEATED RED BLOOD CELLS (BEAKER) (test 0 /100 WBC 0-0 ydmz=080) NEUTROPHILS RELATIVE PERCENT (BEAKER) (test 75 % gath=636) LYMPHOCYTES RELATIVE PERCENT (BEAKER) (test 7 % wceb=539) MONOCYTES RELATIVE PERCENT (BEAKER) (test 14 % odzj=892) EOSINOPHILS RELATIVE PERCENT (BEAKER) (test 2 % bmzc=168) BASOPHILS RELATIVE PERCENT (BEAKER) (test 0 % cxfb=495) NEUTROPHILS ABSOLUTE COUNT (BEAKER) (test 5.11 K/ L 1.78-5.38 ptow=616) LYMPHOCYTES ABSOLUTE COUNT (BEAKER) (test 0.50 K/ L 1.32-3.57 axth=462) MONOCYTES ABSOLUTE COUNT (BEAKER) (test 0.94 K/ L 0.30-0.82 uiac=785) EOSINOPHILS ABSOLUTE COUNT (BEAKER) (test 0.12 K/ L 0.04-0.54 dukr=477) BASOPHILS ABSOLUTE COUNT (BEAKER) (test 0.03 K/ L 0.01-0.08 htat=932) IMMATURE GRANULOCYTES-RELATIVE PERCENT (BEAKER) 1 % 0-1 (test gkay=0908) PROTHROMBIN [id number] 13:46:00 Test Item Value Reference Range Comments PROTIME (BEAKER) (test mtxw=240) 19.5 seconds 11.7-14.7 INR (BEAKER) (test xbrt=748) 1.7 <=5.9 RECOMMENDED COUMADIN/WARFARIN INR THERAPY RANGESSTANDARD DOSE: 2.0 - 3.0 Includes: PROPHYLAXIS forvenous thrombosis, systemic embolization; TREATMENT for venous thrombosis and/or pulmonary embolus.HIGH RISK: Target INR is 2.5-3.5 for patients with mechanical heart valves.BONE AND/OR JOINT IMAGING, WHOLE [id number] 16:45:00FINAL REPORT PROCEDURE: BONE SCAN, WHOLE BODY CPT CODE: [id number] INDICATION: L3 vertebral body lesion follow-up R91.1 [...] Verified Date/ Time: 08/05/2018 16:45:34 Reading Location: [address] Reading Room NIR, VERTEBROPLASTY THORACIC, [id number] 17:23:00Reason for exam:->T11, T12, L2 compression fracturesAddendum [...] Verified Date/Time: 06/04/2018 17:23:27 Reading Location : [address] Radiology Reading RoomAddendum EndsFINAL REPORT HISTORY: [...] Verified Date/Time: 06/03/2018 17:56:43 Reading Location : [place] [id number] Angio Body Reading Room ALPHA FETOPROTEIN (AFP), TUMOR [id number] 15:20:00 Test Item Value Reference Range Comments ALPHA-FETOPROTEIN (BEAKER) (test umgh=5145) 2.2 ng/mL <10.0 COMPREHENSIVE METABOLIC [id number] 14:54:00 Test Item Value Reference Range Comments TOTAL PROTEIN (BEAKER) 6.5 gm/dL 6.0-8.3 (test jmra=608) ALBUMIN (BEAKER) (test 3.6 g/dL 3.5-5.0 znmy=9745) ALKALINE PHOSPHATASE 342 U/L 40-150 (BEAKER) (test ofcw=776) BILIRUBIN TOTAL (BEAKER) 4.2 mg/dL 0.2-1.2 (test seme=011) SODIUM (BEAKER) (test 128 meq/L 136-145 ubzr=435) POTASSIUM (BEAKER) (test 4.6 meq/L 3.5-5.1 cqwk=439) CHLORIDE (BEAKER) (test 100 meq/L 98-107 utue=455) CO2 (BEAKER) (test 21 meq/L 22-29 kdgi=281) BLOOD UREA NITROGEN 21 mg/dL 7-21 (BEAKER) (test ntat=454) CREATININE (BEAKER) (test 1.37 mg/dL 0.57-1.25 hpqw=807) GLUCOSE RANDOM (BEAKER) 108 mg/dL 70-105 (test auwu=407) CALCIUM (BEAKER) (test 9.5 mg/dL 8.4-10.2 kfga=793) AST (SGOT) (BEAKER) (test 25 U/L 5-34 ghpc=113) ALT (SGPT) (BEAKER) (test 10 U/L 6-55 wxbm=184) EGFR (BEAKER) (test 54 mL/min/1.73 sq m ESTIMATED GFR IS NOT avph=9890) ACCURATE CREATININE CLEARANCE IN PREDICTING GLOMERULAR FILTRATION RATE. ESTIMATED GFR IS NOT APPLICABLE FOR DIALYSIS PATIENTS. Specimen slightly ictericBILIRUBIN, [id number] 14:54:00 Test Item Value Reference Range Comments BILIRUBIN DIRECT (BEAKER) (test awve=274) 2.1 mg/dL 0.1-0.5 CBC W/PLT COUNT & AUTO [id number] 14:52:00 Test Item Value Reference Range Comments WHITE BLOOD CELL COUNT (BEAKER) (test tgky=505) 3.9 K/ L 3.5-10.5 RED BLOOD CELL COUNT (BEAKER) (test msob=667) 2.69 M/ L 4.63-6.08 HEMOGLOBIN (BEAKER) (test yjuc=520) 9.1 GM/DL 13.7-17.5 HEMATOCRIT (BEAKER) (test drys=532) 27.3 % 40.1-51.0 MEAN CORPUSCULAR VOLUME (BEAKER) (test ulyn=630) 101.5 fL 79.0-92.2 MEAN CORPUSCULAR HEMOGLOBIN (BEAKER) (test 33.8 pg 25.7-32.2 imep=604) MEAN CORPUSCULAR HEMOGLOBIN CONC (BEAKER) (test 33.3 GM/DL 32.3-36.5 gmou=810) RED CELL DISTRIBUTION WIDTH (BEAKER) (test 18.6 % 11.6-14.4 kjkl=746) PLATELET COUNT (BEAKER) (test oblq=713) 71 K/CU MM 150-450 MEAN PLATELET VOLUME (BEAKER) (test gbew=082) 9.6 fL 9.4-12.4 NUCLEATED RED BLOOD CELLS (BEAKER) (test 0 /100 WBC 0-0 hgyj=365) NEUTROPHILS RELATIVE PERCENT (BEAKER) (test 62 % gglk=617) LYMPHOCYTES RELATIVE PERCENT (BEAKER) (test 16 % ajhk=771) MONOCYTES RELATIVE PERCENT (BEAKER) (test 17 % peja=105) EOSINOPHILS RELATIVE PERCENT (BEAKER) (test 5 % sfmi=254) BASOPHILS RELATIVE PERCENT (BEAKER) (test 0 % qcdk=834) NEUTROPHILS ABSOLUTE COUNT (BEAKER) (test 2.41 K/ L 1.78-5.38 zigl=218) LYMPHOCYTES ABSOLUTE COUNT (BEAKER) (test 0.62 K/ L 1.32-3.57 cgmd=222) MONOCYTES ABSOLUTE COUNT (BEAKER) (test airk=450) 0.65 K/ L 0.30-0.82 EOSINOPHILS ABSOLUTE COUNT (BEAKER) (test 0.20 K/ L 0.04-0.54 nhow=706) BASOPHILS ABSOLUTE COUNT (BEAKER) (test rlzr=753) 0.01 K/ L 0.01-0.08 IMMATURE GRANULOCYTES-RELATIVE PERCENT (BEAKER) 0 % 0-1 (test tadk=7773) PROTHROMBIN [id number] 14:50:00 Test Item Value Reference Range Comments PROTIME (BEAKER) (test kukz=345) 19.5 seconds 11.7-14.7 INR (BEAKER) (test frzr=190) 1.7 <=5.9 RECOMMENDED COUMADIN/WARFARIN INR THERAPY RANGESSTANDARD DOSE: 2.0 - 3.0 Includes: PROPHYLAXIS forvenous thrombosis, systemic embolization; TREATMENT for venous thrombosis and/or pulmonary embolus.HIGH RISK: Target INR is 2.5-3.5 for patients with mechanical heart valves.BODY FLUID CULTURE + GRAM [id number] 13:19:00 Test Item Value Reference Range Comments CULTURE (BEAKER) (test krwr=5136) No growth GRAM STAIN RESULT (BEAKER) (test No WBCs jscu=9565) GRAM STAIN RESULT (BEAKER) (test No organisms seen cvvk=82822) [id number] 17:36:00 Test Item Value Reference Range Comments SODIUM (BEAKER) (test eskz=157) 133 meq/L 136-145 POTASSIUM (BEAKER) (test njnw=184) 3.2 meq/L 3.5-5.1 CHLORIDE (BEAKER) (test uzsv=730) 102 meq/L 98-107 CO2 (BEAKER) (test aayl=872) 21 meq/L 22-29 [id number] 13:21:00 Test Item Value Reference Range Comments SODIUM (BEAKER) (test vjca=322) 134 meq/L 136-145 POTASSIUM (BEAKER) (test wblb=562) 3.0 meq/L 3.5-5.1 CHLORIDE (BEAKER) (test iygr=238) 103 meq/L 98-107 CO2 (BEAKER) (test zzfe=433) 22 meq/L 22-29 CALCIUM, [id number] 04:54:00 Test Item Value Reference Range Comments CALCIUM IONIZED (BEAKER) (test upaf=559) 1.09 mmol/L 1.12-1.27 PH, BLOOD (BEAKER) (test qlik=7121) 7.35 [id number] 04:04:00 Test Item Value Reference Range Comments PHOSPHORUS (BEAKER) (test zpop=714) 2.4 mg/dL 2.3-4.7 [id number] 04:04:00 Test Item Value Reference Range Comments MAGNESIUM (BEAKER) (test uinm=549) 2.0 mg/dL 1.6-2.6 HEPATIC FUNCTION [id number] 04:04:00 Test Item Value Reference Range Comments TOTAL PROTEIN (BEAKER) (test ztww=845) 5.8 gm/dL 6.0-8.3 ALBUMIN (BEAKER) (test lcbh=9356) 4.1 g/dL 3.5-5.0 BILIRUBIN TOTAL (BEAKER) (test igvg=895) 3.9 mg/dL 0.2-1.2 BILIRUBIN DIRECT (BEAKER) (test khio=367) 2.0 mg/dL 0.1-0.5 ALKALINE PHOSPHATASE (BEAKER) (test qxht=863) 123 U/L 40-150 AST (SGOT) (BEAKER) (test ikct=063) 14 U/L 5-34 ALT (SGPT) (BEAKER) (test ihjh=125) < U/L 6-55 Specimen slightly ictericCOMPREHENSIVE METABOLIC [id number] 04:04:00 Test Item Value Reference Range Comments TOTAL PROTEIN (BEAKER) 5.8 gm/dL 6.0-8.3 (test evdd=482) ALBUMIN (BEAKER) (test 4.1 g/dL 3.5-5.0 omof=4009) ALKALINE PHOSPHATASE 123 U/L 40-150 (BEAKER) (test ougx=685) BILIRUBIN TOTAL (BEAKER) 3.9 mg/dL 0.2-1.2 (test pkvu=698) SODIUM (BEAKER) (test 135 meq/L 136-145 eirg=973) POTASSIUM (BEAKER) (test 2.9 meq/L 3.5-5.1 nbuw=826) CHLORIDE (BEAKER) (test 103 meq/L 98-107 pirr=589) CO2 (BEAKER) (test 21 meq/L 22-29 qorx=075) BLOOD UREA NITROGEN 18 mg/dL 7-21 (BEAKER) (test skjt=875) CREATININE (BEAKER) (test 1.32 mg/dL 0.57-1.25 telj=176) GLUCOSE RANDOM (BEAKER) 126 mg/dL 70-105 (test lmxc=483) CALCIUM (BEAKER) (test 9.8 mg/dL 8.4-10.2 lqfz=857) AST (SGOT) (BEAKER) (test 14 U/L 5-34 mdmb=271) ALT (SGPT) (BEAKER) (test < U/L 6-55 iinl=245) EGFR (BEAKER) (test 57 mL/min/1.73 sq m ESTIMATED GFR IS NOT vnqh=8476) ACCURATE CREATININE CLEARANCE IN PREDICTING GLOMERULAR FILTRATION RATE. ESTIMATED GFR IS NOT APPLICABLE FOR DIALYSIS PATIENTS. Specimen slightly ictericPROTHROMBIN [id number] 04:02:00 Test Item Value Reference Range Comments PROTIME (BEAKER) (test qkzh=970) 25.1 seconds 11.7-14.7 INR (BEAKER) (test pvzs=885) 2.3 <=5.9 RECOMMENDED COUMADIN/WARFARIN INR THERAPY RANGESSTANDARD DOSE: 2.0 - 3.0 Includes: PROPHYLAXIS forvenous thrombosis, systemic embolization; TREATMENT for venous thrombosis and/or pulmonary embolus.HIGH RISK: Target INR is 2.5-3.5 for patients with mechanical heart valves.CBC W/PLT COUNT & AUTO [id number] 03:55:00 Test Item Value Reference Range Comments WHITE BLOOD CELL COUNT (BEAKER) (test oazm=449) 3.6 K/ L 3.5-10.5 RED BLOOD CELL COUNT (BEAKER) (test swez=733) 2.48 M/ L 4.63-6.08 HEMOGLOBIN (BEAKER) (test wtot=803) 7.9 GM/DL 13.7-17.5 HEMATOCRIT (BEAKER) (test yash=520) 23.7 % 40.1-51.0 MEAN CORPUSCULAR VOLUME (BEAKER) (test pnhi=765) 95.6 fL 79.0-92.2 MEAN CORPUSCULAR HEMOGLOBIN (BEAKER) (test 31.9 pg 25.7-32.2 gkrf=676) MEAN CORPUSCULAR HEMOGLOBIN CONC (BEAKER) (test 33.3 GM/DL 32.3-36.5 jfqy=290) RED CELL DISTRIBUTION WIDTH (BEAKER) (test 18.8 % 11.6-14.4 apgp=461) PLATELET COUNT (BEAKER) (test oryl=075) 38 K/CU MM 150-450 MEAN PLATELET VOLUME (BEAKER) (test bhsy=670) 9.3 fL 9.4-12.4 NUCLEATED RED BLOOD CELLS (BEAKER) (test 0 /100 WBC 0-0 hnyd=599) NEUTROPHILS RELATIVE PERCENT (BEAKER) (test 57 % nmyp=218) LYMPHOCYTES RELATIVE PERCENT (BEAKER) (test 15 % ihhv=443) MONOCYTES RELATIVE PERCENT (BEAKER) (test 22 % fsrn=689) EOSINOPHILS RELATIVE PERCENT (BEAKER) (test 4 % fcun=803) BASOPHILS RELATIVE PERCENT (BEAKER) (test 0 % emxz=297) NEUTROPHILS ABSOLUTE COUNT (BEAKER) (test 2.09 K/ L 1.78-5.38 uuvd=944) LYMPHOCYTES ABSOLUTE COUNT (BEAKER) (test 0.54 K/ L 1.32-3.57 wbob=810) MONOCYTES ABSOLUTE COUNT (BEAKER) (test iqwo=696) 0.81 K/ L 0.30-0.82 EOSINOPHILS ABSOLUTE COUNT (BEAKER) (test 0.15 K/ L 0.04-0.54 yxgf=660) BASOPHILS ABSOLUTE COUNT (BEAKER) (test tvfb=222) 0.01 K/ L 0.01-0.08 IMMATURE GRANULOCYTES-RELATIVE PERCENT (BEAKER) 1 % 0-1 (test esfz=9986) [id number] 18:07:00 Test Item Value Reference Range Comments SODIUM (BEAKER) (test jidu=046) 132 meq/L 136-145 POTASSIUM (BEAKER) (test 2.9 meq/L 3.5-5.1 Specimen slightly hemolyzed qdle=336) CHLORIDE (BEAKER) (test 101 meq/L 98-107 ryaa=393) CO2 (BEAKER) (test crze=937) 18 meq/L 22-29 LACTIC ACID, VENOUS, WHOLE [id number] 16:43:00 Test Item Value Reference Range Comments LACTATE BLOOD VENOUS (2) 1.6 mmol/L 0.5-2.2 Specimen slightly hemolyzed (BEAKER) (test cmph=7842) Effective 02/28/2016: Units/Reference Range ChangeNew: 0.5-2.2 mmol/L Previous: 5 -20 mg/dLSpecimen slightly ictericBODY FLUID CULTURE + GRAM [id number] 12: 08:00 Test Item Value Reference Range Comments CULTURE (BEAKER) (test dnxn=5188) No growth GRAM STAIN RESULT (BEAKER) (test <1+ WBCs retj=6087) GRAM STAIN RESULT (BEAKER) (test No organisms seen jaqw=20298) [id number] 08:10:00 Test Item Value Reference Range Comments PHOSPHORUS (BEAKER) (test ggst=987) 2.8 mg/dL 2.3-4.7 [id number] 08:10:00 Test Item Value Reference Range Comments MAGNESIUM (BEAKER) (test vtna=890) 2.2 mg/dL 1.6-2.6 COMPREHENSIVE METABOLIC [id number] 08:10:00 Test Item Value Reference Range Comments TOTAL PROTEIN (BEAKER) 6.2 gm/dL 6.0-8.3 (test ncjq=923) ALBUMIN (BEAKER) (test 4.4 g/dL 3.5-5.0 rmyf=7876) ALKALINE PHOSPHATASE 121 U/L 40-150 (BEAKER) (test wyaj=877) BILIRUBIN TOTAL (BEAKER) 4.4 mg/dL 0.2-1.2 (test vlfv=859) SODIUM (BEAKER) (test 135 meq/L 136-145 idyk=091) POTASSIUM (BEAKER) (test 2.8 meq/L 3.5-5.1 dycb=382) CHLORIDE (BEAKER) (test 102 meq/L 98-107 wwkb=651) CO2 (BEAKER) (test 21 meq/L 22-29 drjp=691) BLOOD UREA NITROGEN 20 mg/dL 7-21 (BEAKER) (test udar=263) CREATININE (BEAKER) (test 1.34 mg/dL 0.57-1.25 jqzd=940) GLUCOSE RANDOM (BEAKER) 132 mg/dL 70-105 (test easp=096) CALCIUM (BEAKER) (test 10.0 mg/dL 8.4-10.2 grsb=452) AST (SGOT) (BEAKER) (test 16 U/L 5-34 imiv=833) ALT (SGPT) (BEAKER) (test 6 U/L 6-55 ntkp=006) EGFR (BEAKER) (test 56 mL/min/1.73 sq m ESTIMATED GFR IS NOT byjs=6206) ACCURATE CREATININE CLEARANCE IN PREDICTING GLOMERULAR FILTRATION RATE. ESTIMATED GFR IS NOT APPLICABLE FOR DIALYSIS PATIENTS. Specimen slightly ictericHEPATIC FUNCTION [id number] 08:10:00 Test Item Value Reference Range Comments TOTAL PROTEIN (BEAKER) (test prlk=843) 6.2 gm/dL 6.0-8.3 ALBUMIN (BEAKER) (test pmyz=5099) 4.4 g/dL 3.5-5.0 BILIRUBIN TOTAL (BEAKER) (test rsdp=714) 4.4 mg/dL 0.2-1.2 BILIRUBIN DIRECT (BEAKER) (test iygp=580) 1.9 mg/dL 0.1-0.5 ALKALINE PHOSPHATASE (BEAKER) (test eoah=718) 121 U/L 40-150 AST (SGOT) (BEAKER) (test ndhl=948) 16 U/L 5-34 ALT (SGPT) (BEAKER) (test unko=927) 6 U/L 6-55 Specimen slightly ictericCALCIUM, [id number] 07:20:00 Test Item Value Reference Range Comments CALCIUM IONIZED (BEAKER) (test exbm=489) 1.01 mmol/L 1.12-1.27 PH, BLOOD (BEAKER) (test ivxa=9255) 7.49 CBC W/PLT COUNT & AUTO [id number] 06:59:00 Test Item Value Reference Range Comments WHITE BLOOD CELL COUNT (BEAKER) (test eafu=255) 4.1 K/ L 3.5-10.5 RED BLOOD CELL COUNT (BEAKER) (test gmtq=334) 2.62 M/ L 4.63-6.08 HEMOGLOBIN (BEAKER) (test ibgz=118) 8.2 GM/DL 13.7-17.5 HEMATOCRIT (BEAKER) (test mibq=857) 24.9 % 40.1-51.0 MEAN CORPUSCULAR VOLUME (BEAKER) (test pucv=784) 95.0 fL 79.0-92.2 MEAN CORPUSCULAR HEMOGLOBIN (BEAKER) (test 31.3 pg 25.7-32.2 rbcw=742) MEAN CORPUSCULAR HEMOGLOBIN CONC (BEAKER) (test 32.9 GM/DL 32.3-36.5 xanz=123) RED CELL DISTRIBUTION WIDTH (BEAKER) (test 18.6 % 11.6-14.4 bsjf=024) PLATELET COUNT (BEAKER) (test mtmb=202) 38 K/CU MM 150-450 MEAN PLATELET VOLUME (BEAKER) (test pwhu=848) 9.3 fL 9.4-12.4 NUCLEATED RED BLOOD CELLS (BEAKER) (test 0 /100 WBC 0-0 xkxv=301) NEUTROPHILS RELATIVE PERCENT (BEAKER) (test 66 % yyel=682) LYMPHOCYTES RELATIVE PERCENT (BEAKER) (test 12 % lxaj=953) MONOCYTES RELATIVE PERCENT (BEAKER) (test 18 % zles=515) EOSINOPHILS RELATIVE PERCENT (BEAKER) (test 3 % yujo=397) BASOPHILS RELATIVE PERCENT (BEAKER) (test 1 % inmy=699) NEUTROPHILS ABSOLUTE COUNT (BEAKER) (test 2.74 K/ L 1.78-5.38 yltv=588) LYMPHOCYTES ABSOLUTE COUNT (BEAKER) (test 0.49 K/ L 1.32-3.57 yemb=392) MONOCYTES ABSOLUTE COUNT (BEAKER) (test fhbd=914) 0.75 K/ L 0.30-0.82 EOSINOPHILS ABSOLUTE COUNT (BEAKER) (test 0.11 K/ L 0.04-0.54 onnz=443) BASOPHILS ABSOLUTE COUNT (BEAKER) (test zlpz=353) 0.02 K/ L 0.01-0.08 IMMATURE GRANULOCYTES-RELATIVE PERCENT (BEAKER) 1 % 0-1 (test kuvj=7050) PROTHROMBIN [id number] 06:56:00 Test Item Value Reference Range Comments PROTIME (BEAKER) (test lfkq=178) 24.5 seconds 11.7-14.7 INR (BEAKER) (test shgo=407) 2.2 <=5.9 RECOMMENDED COUMADIN/WARFARIN INR THERAPY RANGESSTANDARD DOSE: 2.0 - 3.0 Includes: PROPHYLAXIS forvenous thrombosis, systemic embolization; TREATMENT for venous thrombosis and/or pulmonary embolus.HIGH RISK: Target INR is 2.5-3.5 for patients with mechanical heart valves.BODY FLUID CELL COUNT WITH [id number] 18:36:00 Test Item Value Reference Range Comments APPEARANCE FLUID (BEAKER) (test vdrm=618) Hazy Clear COLOR FLUID (BEAKER) (test tkpn=958) Yellow Colorless, Straw RBC FLUID (BEAKER) (test bzth=936) 2000 /cu mm <=1 ADJUSTED WBC FLUID (BEAKER) (test rfjd=2229) 96 /cu mm <=5 LINING CELLS (BEAKER) (test fneu=9571) 2 /cu mm <=1 NEUTROPHILS FLUID (BEAKER) (test npsv=1630) 4 % LYMPHS FLUID (BEAKER) (test wysb=081) 11 % MONO/MACROPHAGE FLUID (BEAKER) (test bcxy=392) 85 % EOSINOPHILS FLUID (BEAKER) (test qysi=812) 0 % BASO FLUID (BEAKER) (test dbea=164) 0 % CONTAINER BODY FLUID (BEAKER) (test xlcb=3245) EDTA Tube U/S, [id number] 12:49:00Limit to 4L due to AKIReason for exam:-> ascitesFINAL REPORT Indication: Ascites. Technique: Ultrasound guided paracentesis. Findings:Preliminary ultrasound confirms ascites. A safe window was identified in the midline (suprapubic). The procedure was explained to the patient and informed consent was signed. The skin was marked and prepped in standard sterile fashion. 2% lidocaine was used for local anesthesia. A 5 [place]ese needle catheter system was advanced into the peritoneal space. 3300 cc clear yellow fluid was taken off.Sample of the fluid was sent to the laboratory. Patient tolerated the procedure well. Impression: Ultrasound guided paracentesis. Signed: Aristeo Xiong MDReport Verified Date/ Time: 05/13/2018 12:49:12 Reading Location: [facility] [id number] Ultrasound Reading Room 12: 49 PMCALCIUM, [id number] 05:29:00 Test Item Value Reference Range Comments CALCIUM IONIZED (BEAKER) (test wget=138) 1.10 mmol/L 1.12-1.27 PH, BLOOD (BEAKER) (test jyqg=4772) 7.35 B-TYPE NATRIURETIC FACTOR (BNP)2018-05-13 04:48:00 Test Item Value Reference Range Comments B-TYPE NATRIURETIC PEPTIDE (BEAKER) (test 274 pg/mL 0-100 axwm=366) [id number] 04:44:00 Test Item Value Reference Range Comments PHOSPHORUS (BEAKER) (test jeco=414) 3.0 mg/dL 2.3-4.7 [id number] 04:44:00 Test Item Value Reference Range Comments MAGNESIUM (BEAKER) (test kxyr=311) 2.0 mg/dL 1.6-2.6 COMPREHENSIVE METABOLIC [id number] 04:44:00 Test Item Value Reference Range Comments TOTAL PROTEIN (BEAKER) 6.2 gm/dL 6.0-8.3 (test advy=376) ALBUMIN (BEAKER) (test 4.3 g/dL 3.5-5.0 bnlt=6294) ALKALINE PHOSPHATASE 134 U/L 40-150 (BEAKER) (test otrk=437) BILIRUBIN TOTAL (BEAKER) 4.4 mg/dL 0.2-1.2 (test cjjn=242) SODIUM (BEAKER) (test 131 meq/L 136-145 ytha=764) POTASSIUM (BEAKER) (test 3.7 meq/L 3.5-5.1 tijj=849) CHLORIDE (BEAKER) (test 96 meq/L 98-107 imtd=632) CO2 (BEAKER) (test 26 meq/L 22-29 hauw=808) BLOOD UREA NITROGEN 20 mg/dL 7-21 (BEAKER) (test bszb=036) CREATININE (BEAKER) (test 1.60 mg/dL 0.57-1.25 opwi=138) GLUCOSE RANDOM (BEAKER) 149 mg/dL 70-105 (test wuxr=565) CALCIUM (BEAKER) (test 10.0 mg/dL 8.4-10.2 fgdx=794) AST (SGOT) (BEAKER) (test 18 U/L 5-34 hrxg=518) ALT (SGPT) (BEAKER) (test 7 U/L 6-55 quaa=372) EGFR (BEAKER) (test 46 mL/min/1.73 sq m ESTIMATED GFR IS NOT qwwa=7931) ACCURATE CREATININE CLEARANCE IN PREDICTING GLOMERULAR FILTRATION RATE. ESTIMATED GFR IS NOT APPLICABLE FOR DIALYSIS PATIENTS. Specimen slightly ictericHEPATIC FUNCTION [id number] 04:44:00 Test Item Value Reference Range Comments TOTAL PROTEIN (BEAKER) (test mych=601) 6.2 gm/dL 6.0-8.3 ALBUMIN (BEAKER) (test ubdn=2787) 4.3 g/dL 3.5-5.0 BILIRUBIN TOTAL (BEAKER) (test hyae=109) 4.4 mg/dL 0.2-1.2 BILIRUBIN DIRECT (BEAKER) (test rpoa=854) 2.4 mg/dL 0.1-0.5 ALKALINE PHOSPHATASE (BEAKER) (test dsrn=983) 134 U/L 40-150 AST (SGOT) (BEAKER) (test lase=023) 18 U/L 5-34 ALT (SGPT) (BEAKER) (test sibf=110) 7 U/L 6-55 Specimen slightly ictericPROTHROMBIN [id number] 04:30:00 Test Item Value Reference Range Comments PROTIME (BEAKER) (test dhqh=575) 23.8 seconds 11.7-14.7 INR (BEAKER) (test jexu=518) 2.1 <=5.9 RECOMMENDED COUMADIN/WARFARIN INR THERAPY RANGESSTANDARD DOSE: 2.0 - 3.0 Includes: PROPHYLAXIS forvenous thrombosis, systemic embolization; TREATMENT for venous thrombosis and/or pulmonary embolus.HIGH RISK: Target INR is 2.5-3.5 for patients with mechanical heart valves.CBC W/PLT COUNT & AUTO [id number] 04:19:00 Test Item Value Reference Range Comments WHITE BLOOD CELL COUNT (BEAKER) (test uvlv=100) 4.0 K/ L 3.5-10.5 RED BLOOD CELL COUNT (BEAKER) (test urjw=615) 2.60 M/ L 4.63-6.08 HEMOGLOBIN (BEAKER) (test hqqw=142) 8.2 GM/DL 13.7-17.5 HEMATOCRIT (BEAKER) (test etwh=319) 24.6 % 40.1-51.0 MEAN CORPUSCULAR VOLUME (BEAKER) (test ongx=360) 94.6 fL 79.0-92.2 MEAN CORPUSCULAR HEMOGLOBIN (BEAKER) (test 31.5 pg 25.7-32.2 vhxw=632) MEAN CORPUSCULAR HEMOGLOBIN CONC (BEAKER) (test 33.3 GM/DL 32.3-36.5 cohh=746) RED CELL DISTRIBUTION WIDTH (BEAKER) (test 18.1 % 11.6-14.4 lram=257) PLATELET COUNT (BEAKER) (test djxt=602) 46 K/CU MM 150-450 MEAN PLATELET VOLUME (BEAKER) (test fmjd=229) 9.1 fL 9.4-12.4 NUCLEATED RED BLOOD CELLS (BEAKER) (test 0 /100 WBC 0-0 arrp=450) NEUTROPHILS RELATIVE PERCENT (BEAKER) (test 62 % glbg=226) LYMPHOCYTES RELATIVE PERCENT (BEAKER) (test 13 % xxsm=744) MONOCYTES RELATIVE PERCENT (BEAKER) (test 21 % quxd=069) EOSINOPHILS RELATIVE PERCENT (BEAKER) (test 3 % zzfz=765) BASOPHILS RELATIVE PERCENT (BEAKER) (test 0 % duno=514) NEUTROPHILS ABSOLUTE COUNT (BEAKER) (test 2.49 K/ L 1.78-5.38 lxgt=789) LYMPHOCYTES ABSOLUTE COUNT (BEAKER) (test 0.53 K/ L 1.32-3.57 iopg=342) MONOCYTES ABSOLUTE COUNT (BEAKER) (test vvhg=457) 0.86 K/ L 0.30-0.82 EOSINOPHILS ABSOLUTE COUNT (BEAKER) (test 0.10 K/ L 0.04-0.54 sdph=713) BASOPHILS ABSOLUTE COUNT (BEAKER) (test vfhr=266) 0.01 K/ L 0.01-0.08 IMMATURE GRANULOCYTES-RELATIVE PERCENT (BEAKER) 1 % 0-1 (test qbev=6331) TISSUE [id number] 14:55:00Surgical Pathology Report Case: [id number] Authorizing Provider: Karina Rain MD Collected: 05/08/20181999 Ordering Location: [address] Received: 05/11/2018 0837 Service Pathologist: Jesús Craig MD Specimen: Bone L3 VERTEBRAL BODYBONE BIOPSY:BONE AND BONE MARROW, NEGATIVE FOR MALIGNANCY.SEE DIAGNOSTIC COMMENT. Signing Pathologist Direct Phone Line: [phone] signed by Jesús Craig MD on 05/12/2018 [...] thesampled material may not be fully territory service representative. This case was discussed with Dr. Andrea Mason, book publisher.[id number], [id number], [id number], [id number] fracture of body thoracic vertebralL3 vertebral body [...] developed and its performance characteristics determined by [facility], Pathology Laboratory. It has not been [...] clinical laboratory testing.RAD, CHEST, 1 VIEW, NON [id number] 13:56:00Reason for exam:->edemaShould this be performed at the bedside?->YesFINAL REPORT Chest one view compared to December 30 Discussion: Ill-defined bilateral airspace opacities are worse since the previous study although this may reflect a lesser inspiratory effort. No gross effusion or pneumothorax. Signed: Karina Pugh Verified Date/Time : 05/12/2018 13:56:44 Reading Location: [address] Consult Reading Room CALCIUM, [id number] 06:58:00 Test Item Value Reference Range Comments CALCIUM IONIZED (BEAKER) (test uxry=286) 1.11 mmol/L 1.12-1.27 PH, BLOOD (BEAKER) (test ehcm=9509) 7.36 [id number] 06:31:00 Test Item Value Reference Range Comments PHOSPHORUS (BEAKER) (test qasf=787) 2.9 mg/dL 2.3-4.7 [id number] 06:31:00 Test Item Value Reference Range Comments MAGNESIUM (BEAKER) (test qpxs=627) 1.9 mg/dL 1.6-2.6 COMPREHENSIVE METABOLIC [id number] 06:31:00 Test Item Value Reference Range Comments TOTAL PROTEIN (BEAKER) 5.8 gm/dL 6.0-8.3 (test vpdn=436) ALBUMIN (BEAKER) (test 4.0 g/dL 3.5-5.0 ewbp=0407) ALKALINE PHOSPHATASE 124 U/L 40-150 (BEAKER) (test hspz=483) BILIRUBIN TOTAL (BEAKER) 4.3 mg/dL 0.2-1.2 (test qjkm=481) SODIUM (BEAKER) (test 128 meq/L 136-145 wobe=094) POTASSIUM (BEAKER) (test 3.9 meq/L 3.5-5.1 cwih=199) CHLORIDE (BEAKER) (test 92 meq/L 98-107 mgut=885) CO2 (BEAKER) (test 26 meq/L 22-29 vcsk=423) BLOOD UREA NITROGEN 21 mg/dL 7-21 (BEAKER) (test yqhd=394) CREATININE (BEAKER) (test 1.54 mg/dL 0.57-1.25 sxif=521) GLUCOSE RANDOM (BEAKER) 113 mg/dL 70-105 (test kazg=988) CALCIUM (BEAKER) (test 9.5 mg/dL 8.4-10.2 ngeg=908) AST (SGOT) (BEAKER) (test 16 U/L 5-34 fkpn=640) ALT (SGPT) (BEAKER) (test 6 U/L 6-55 bxgk=441) EGFR (BEAKER) (test 48 mL/min/1.73 sq m ESTIMATED GFR IS NOT bhhh=6083) ACCURATE CREATININE CLEARANCE IN PREDICTING GLOMERULAR FILTRATION RATE. ESTIMATED GFR IS NOT APPLICABLE FOR DIALYSIS PATIENTS. Specimen slightly ictericHEPATIC FUNCTION [id number] 06:31:00 Test Item Value Reference Range Comments TOTAL PROTEIN (BEAKER) (test gtnt=730) 5.8 gm/dL 6.0-8.3 ALBUMIN (BEAKER) (test vseg=5051) 4.0 g/dL 3.5-5.0 BILIRUBIN TOTAL (BEAKER) (test ocsf=294) 4.3 mg/dL 0.2-1.2 BILIRUBIN DIRECT (BEAKER) (test wdhv=463) 2.3 mg/dL 0.1-0.5 ALKALINE PHOSPHATASE (BEAKER) (test nseu=827) 124 U/L 40-150 AST (SGOT) (BEAKER) (test aujk=793) 16 U/L 5-34 ALT (SGPT) (BEAKER) (test wesz=689) 6 U/L 6-55 Specimen slightly ictericPROTHROMBIN [id number] 06:16:00 Test Item Value Reference Range Comments PROTIME (BEAKER) (test bfic=371) 22.3 seconds 11.7-14.7 INR (BEAKER) (test rthl=153) 2.0 <=5.9 RECOMMENDED COUMADIN/WARFARIN INR THERAPY RANGESSTANDARD DOSE: 2.0 - 3.0 Includes: PROPHYLAXIS forvenous thrombosis, systemic embolization; TREATMENT for venous thrombosis and/or pulmonary embolus.HIGH RISK: Target INR is 2.5-3.5 for patients with mechanical heart valves.CBC W/PLT COUNT & AUTO [id number] 06:00:00 Test Item Value Reference Range Comments WHITE BLOOD CELL COUNT (BEAKER) (test smhh=208) 4.3 K/ L 3.5-10.5 RED BLOOD CELL COUNT (BEAKER) (test hklh=878) 2.68 M/ L 4.63-6.08 HEMOGLOBIN (BEAKER) (test hcox=501) 8.3 GM/DL 13.7-17.5 HEMATOCRIT (BEAKER) (test laft=454) 25.0 % 40.1-51.0 MEAN CORPUSCULAR VOLUME (BEAKER) (test vkhu=887) 93.3 fL 79.0-92.2 MEAN CORPUSCULAR HEMOGLOBIN (BEAKER) (test 31.0 pg 25.7-32.2 iwyi=449) MEAN CORPUSCULAR HEMOGLOBIN CONC (BEAKER) (test 33.2 GM/DL 32.3-36.5 lvnu=150) RED CELL DISTRIBUTION WIDTH (BEAKER) (test 17.4 % 11.6-14.4 sayt=318) PLATELET COUNT (BEAKER) (test okfz=674) 57 K/CU MM 150-450 MEAN PLATELET VOLUME (BEAKER) (test nsom=136) 9.3 fL 9.4-12.4 NUCLEATED RED BLOOD CELLS (BEAKER) (test 0 /100 WBC 0-0 nnyu=772) NEUTROPHILS RELATIVE PERCENT (BEAKER) (test 61 % rppx=498) LYMPHOCYTES RELATIVE PERCENT (BEAKER) (test 14 % jwwk=906) MONOCYTES RELATIVE PERCENT (BEAKER) (test 17 % digb=787) EOSINOPHILS RELATIVE PERCENT (BEAKER) (test 7 % vwxi=143) BASOPHILS RELATIVE PERCENT (BEAKER) (test 1 % ypfs=621) NEUTROPHILS ABSOLUTE COUNT (BEAKER) (test 2.62 K/ L 1.78-5.38 xmzr=052) LYMPHOCYTES ABSOLUTE COUNT (BEAKER) (test 0.59 K/ L 1.32-3.57 rkbt=044) MONOCYTES ABSOLUTE COUNT (BEAKER) (test hcnc=297) 0.73 K/ L 0.30-0.82 EOSINOPHILS ABSOLUTE COUNT (BEAKER) (test 0.29 K/ L 0.04-0.54 qvgb=211) BASOPHILS ABSOLUTE COUNT (BEAKER) (test yuap=719) 0.02 K/ L 0.01-0.08 IMMATURE GRANULOCYTES-RELATIVE PERCENT (BEAKER) 1 % 0-1 (test mdre=4498) BLOOD [id number] 00:00:00 Test Item Value Reference Range Comments CULTURE (BEAKER) (test wdyv=6460) No growth in 5 days BLOOD [id number] 00:00:00 Test Item Value Reference Range Comments CULTURE (BEAKER) (test nzjb=0637) No growth in 5 days OSMOLALITY, [id number] 18:16:00 Test Item Value Reference Range Comments OSMOLALITY URINE (BEAKER) (test pyob=501) 312 mOsm/kg 40-1400 BODY FLUID CELL COUNT WITH [id number] 17:17:00 Test Item Value Reference Range Comments APPEARANCE FLUID (BEAKER) (test yobu=906) Clear Clear COLOR FLUID (BEAKER) (test bagj=543) Yellow Colorless, Straw RBC FLUID (BEAKER) (test cbqg=079) 150 /cu mm <=1 ADJUSTED WBC FLUID (BEAKER) (test hhwz=2134) 72 /cu mm <=5 LINING CELLS (BEAKER) (test xbqw=6200) 2 /cu mm <=1 NEUTROPHILS FLUID (BEAKER) (test nbix=1008) 3 % LYMPHS FLUID (BEAKER) (test duau=311) 28 % MONO/MACROPHAGE FLUID (BEAKER) (test jzpc=287) 68 % EOSINOPHILS FLUID (BEAKER) (test tkve=820) 1 % BASO FLUID (BEAKER) (test vouy=206) 0 % CONTAINER BODY FLUID (BEAKER) (test rfbm=9699) EDTA Tube SODIUM, RANDOM [id number] 17:09:00 Test Item Value Reference Range Comments SODIUM URINE (BEAKER) (test slzp=458) < meq/L Reference Range: No NormalsURINALYSIS W/ [id number] 17:08:00 Test Item Value Reference Range Comments COLOR (BEAKER) (test zyee=415) Yellow CLARITY (BEAKER) (test vavj=127) Clear SPECIFIC GRAVITY UA (BEAKER) (test rsbd=353) 1.012 1.001-1.035 PH UA (BEAKER) (test bxid=094) 5.5 5.0-8.0 PROTEIN UA (BEAKER) (test nwzk=379) Negative Negative GLUCOSE UA (BEAKER) (test kxvf=633) Negative Negative KETONES UA (BEAKER) (test trvp=918) Negative Negative BILIRUBIN UA (BEAKER) (test sbdo=638) Negative Negative BLOOD UA (BEAKER) (test mckk=038) Negative Negative NITRITE UA (BEAKER) (test cqtj=341) Negative Negative LEUKOCYTE ESTERASE UA (BEAKER) (test cjtx=218) Negative Negative UROBILINOGEN UA (BEAKER) (test hyit=481) 2.0 mg/dL 0.2-1.0 RBC UA (BEAKER) (test nljv=538) 0 /HPF WBC UA (BEAKER) (test qskm=768) 1 /HPF MUCUS (BEAKER) (test eyhz=0331) Rare HYALINE CASTS (BEAKER) (test mytm=841) 15 /LPF SOURCE(BEAKER) (test fgwo=2963) CREATININE, RANDOM [id number] 17:05:00 Test Item Value Reference Range Comments CREATININE URINE ([place]) (test iyuf=315) 116.1 mg/dL Reference Range: No NormalsPROTEIN, RANDOM [id number] 17:05:00 Test Item Value Reference Range Comments PROTEIN, URINE (BEAKER) (test rexe=3534) 7 mg/dL 0-14 RAD, SPINE, THORACIC, 2 [id number] 13:53:00Reason for exam:->back pain, s/p kyphoplastyFINAL REPORT [...] Aristeo Xiong Verified Date/Time: 13:53:06 Reading Location: [facility] [employer] Reading Room RAD, SPINE, LUMBAR, 2 OR 3 [id number] 13:53:00Reason for exam:->back pain, s/p kyphoplastyFINAL REPORT [...] Aristeo Xiongort Verified Date/Time: 13:53:06 Reading Location: [facility] [employer] Reading Room U/S, [id number] 12:52:00Limit to 4L due to AKIReason for exam:-> ascitesShould this be performed at the bedside?->NoFINAL REPORT Ultrasound guided paracentesis, 05/11/2018. Clinical History: Ascites. Sedation: None. Barge Master: Elle. Unarmed Security Officer: None. Estimated Blood Loss: < 1 cc. [...] was achieved with 1% lidocaine, a 5 Guyanese one-step catheter was advanced into the peritoneal cavity under ultrasound guidance. After completion of drainage, the catheter was removed. There was no evidence of complication. Patient Disposition: The patient was discharged from the ultrasound department after the paracentesis, in good condition. Impression: Successful ultrasound guided paracentesis. Signed: Elizabeth Almeidaort Verified Date/Time: 05/11/2018 12:52:57 Reading Location: [address] Ultrasound Reading Room MISCELLANEOUS LAB [id number] 10:45:00 Test Item Value Reference Range Comments SCAN RESULT (test [id number]) [id number] 07:31:00 Test Item Value Reference Range Comments PHOSPHORUS (BEAKER) (test xxfr=937) 2.7 mg/dL 2.3-4.7 [id number] 07:31:00 Test Item Value Reference Range Comments MAGNESIUM (BEAKER) (test stus=152) 1.8 mg/dL 1.6-2.6 COMPREHENSIVE METABOLIC [id number] 07:31:00 Test Item Value Reference Range Comments TOTAL PROTEIN (BEAKER) 5.5 gm/dL 6.0-8.3 (test ubyg=484) ALBUMIN (BEAKER) (test 3.5 g/dL 3.5-5.0 qpwo=0693) ALKALINE PHOSPHATASE 118 U/L 40-150 (BEAKER) (test qtdx=222) BILIRUBIN TOTAL (BEAKER) 5.1 mg/dL 0.2-1.2 (test hfob=611) SODIUM (BEAKER) (test 123 meq/L 136-145 xiwx=300) POTASSIUM (BEAKER) (test 4.1 meq/L 3.5-5.1 pcli=730) CHLORIDE (BEAKER) (test 91 meq/L 98-107 awfq=154) CO2 (BEAKER) (test 25 meq/L 22-29 ixic=360) BLOOD UREA NITROGEN 21 mg/dL 7-21 (BEAKER) (test xkbt=536) CREATININE (BEAKER) (test 1.59 mg/dL 0.57-1.25 askj=821) GLUCOSE RANDOM (BEAKER) 121 mg/dL 70-105 (test ppsb=753) CALCIUM (BEAKER) (test 9.4 mg/dL 8.4-10.2 dyxv=192) AST (SGOT) (BEAKER) (test 17 U/L 5-34 dade=497) ALT (SGPT) (BEAKER) (test 8 U/L 6-55 vwkz=068) EGFR (BEAKER) (test 46 mL/min/1.73 sq m ESTIMATED GFR IS NOT qiqj=8249) ACCURATE CREATININE CLEARANCE IN PREDICTING GLOMERULAR FILTRATION RATE. ESTIMATED GFR IS NOT APPLICABLE FOR DIALYSIS PATIENTS. Specimen moderately ictericHEPATIC FUNCTION [id number] 07:31:00 Test Item Value Reference Range Comments TOTAL PROTEIN (BEAKER) (test lmnp=859) 5.5 gm/dL 6.0-8.3 ALBUMIN (BEAKER) (test siah=7189) 3.5 g/dL 3.5-5.0 BILIRUBIN TOTAL (BEAKER) (test kxcq=778) 5.1 mg/dL 0.2-1.2 BILIRUBIN DIRECT (BEAKER) (test hxik=288) 2.3 mg/dL 0.1-0.5 ALKALINE PHOSPHATASE (BEAKER) (test sakm=927) 118 U/L 40-150 AST (SGOT) (BEAKER) (test sxih=332) 17 U/L 5-34 ALT (SGPT) (BEAKER) (test amni=247) 8 U/L 6-55 Specimen moderately ictericPROTHROMBIN [id number] 07:17:00 Test Item Value Reference Range Comments PROTIME (BEAKER) (test wldk=812) 23.8 seconds 11.7-14.7 INR (BEAKER) (test oife=224) 2.1 <=5.9 RECOMMENDED COUMADIN/WARFARIN INR THERAPY RANGESSTANDARD DOSE: 2.0 - 3.0 Includes: PROPHYLAXIS forvenous thrombosis, systemic embolization; TREATMENT for venous thrombosis and/or pulmonary embolus.HIGH RISK: Target INR is 2.5-3.5 for patients with mechanical heart valves.CBC W/PLT COUNT & AUTO [id number] 07:15:00 Test Item Value Reference Range Comments WHITE BLOOD CELL COUNT (BEAKER) (test vgcg=803) 4.4 K/ L 3.5-10.5 RED BLOOD CELL COUNT (BEAKER) (test ahxf=849) 2.52 M/ L 4.63-6.08 HEMOGLOBIN (BEAKER) (test wley=875) 7.9 GM/DL 13.7-17.5 HEMATOCRIT (BEAKER) (test ctkq=461) 23.7 % 40.1-51.0 MEAN CORPUSCULAR VOLUME (BEAKER) (test ahdv=211) 94.0 fL 79.0-92.2 MEAN CORPUSCULAR HEMOGLOBIN (BEAKER) (test 31.3 pg 25.7-32.2 tozx=024) MEAN CORPUSCULAR HEMOGLOBIN CONC (BEAKER) (test 33.3 GM/DL 32.3-36.5 elka=407) RED CELL DISTRIBUTION WIDTH (BEAKER) (test 17.6 % 11.6-14.4 cftt=557) PLATELET COUNT (BEAKER) (test lpgt=138) 52 K/CU MM 150-450 MEAN PLATELET VOLUME (BEAKER) (test sjav=937) 9.2 fL 9.4-12.4 NUCLEATED RED BLOOD CELLS (BEAKER) (test 0 /100 WBC 0-0 gtfi=090) NEUTROPHILS RELATIVE PERCENT (BEAKER) (test 62 % vgjl=903) LYMPHOCYTES RELATIVE PERCENT (BEAKER) (test 10 % vepw=793) MONOCYTES RELATIVE PERCENT (BEAKER) (test 19 % jolz=375) EOSINOPHILS RELATIVE PERCENT (BEAKER) (test 8 % zrtf=052) BASOPHILS RELATIVE PERCENT (BEAKER) (test 0 % jzvs=957) NEUTROPHILS ABSOLUTE COUNT (BEAKER) (test 2.72 K/ L 1.78-5.38 eolp=744) LYMPHOCYTES ABSOLUTE COUNT (BEAKER) (test 0.42 K/ L 1.32-3.57 lnvl=589) MONOCYTES ABSOLUTE COUNT (BEAKER) (test fspf=911) 0.84 K/ L 0.30-0.82 EOSINOPHILS ABSOLUTE COUNT (BEAKER) (test 0.34 K/ L 0.04-0.54 apyd=729) BASOPHILS ABSOLUTE COUNT (BEAKER) (test ggqi=022) 0.00 K/ L 0.01-0.08 IMMATURE GRANULOCYTES-RELATIVE PERCENT (BEAKER) 1 % 0-1 (test hflp=4349) CALCIUM, [id number] 07:09:00 Test Item Value Reference Range Comments CALCIUM IONIZED (BEAKER) (test eizg=789) 1.09 mmol/L 1.12-1.27 PH, BLOOD (BEAKER) (test mpcx=9814) 7.36 BASIC METABOLIC [id number] 17:49:00 Test Item Value Reference Range Comments SODIUM (BEAKER) (test 124 meq/L 136-145 sgjc=367) POTASSIUM (BEAKER) (test 3.8 meq/L 3.5-5.1 nzki=583) CHLORIDE (BEAKER) (test 91 meq/L 98-107 capl=745) CO2 (BEAKER) (test 22 meq/L 22-29 itpo=400) BLOOD UREA NITROGEN 19 mg/dL 7-21 (BEAKER) (test tvlv=000) CREATININE (BEAKER) (test 1.49 mg/dL 0.57-1.25 iyhd=930) GLUCOSE RANDOM (BEAKER) 105 mg/dL 70-105 (test ezjk=960) CALCIUM (BEAKER) (test 9.3 mg/dL 8.4-10.2 bazc=725) EGFR (BEAKER) (test 50 mL/min/1.73 sq m ESTIMATED GFR IS NOT kauk=0662) ACCURATE CREATININE CLEARANCE IN PREDICTING GLOMERULAR FILTRATION RATE. ESTIMATED GFR IS NOT APPLICABLE FOR DIALYSIS PATIENTS. Call [id number] slightly ictericCALCIUM, [id number] 06:59:00 Test Item Value Reference Range Comments CALCIUM IONIZED (BEAKER) (test hbvb=983) 1.00 mmol/L 1.12-1.27 PH, BLOOD (BEAKER) (test tgwh=4395) 7.47 [id number] 05:42:00 Test Item Value Reference Range Comments PHOSPHORUS (BEAKER) (test addx=160) 2.7 mg/dL 2.3-4.7 [id number] 05:42:00 Test Item Value Reference Range Comments MAGNESIUM (BEAKER) (test zhya=767) 1.7 mg/dL 1.6-2.6 HEPATIC FUNCTION [id number] 05:42:00 Test Item Value Reference Range Comments TOTAL PROTEIN (BEAKER) (test rylv=612) 5.2 gm/dL 6.0-8.3 ALBUMIN (BEAKER) (test ddje=2987) 3.5 g/dL 3.5-5.0 BILIRUBIN TOTAL (BEAKER) (test xhtv=513) 3.4 mg/dL 0.2-1.2 BILIRUBIN DIRECT (BEAKER) (test xowy=919) 1.8 mg/dL 0.1-0.5 ALKALINE PHOSPHATASE (BEAKER) (test mnll=706) 106 U/L 40-150 AST (SGOT) (BEAKER) (test hdrw=580) 15 U/L 5-34 ALT (SGPT) (BEAKER) (test gfkd=349) 7 U/L 6-55 Specimen slightly ictericPROTHROMBIN [id number] 05:22:00 Test Item Value Reference Range Comments PROTIME (BEAKER) (test coya=720) 22.6 seconds 11.7-14.7 INR (BEAKER) (test ocdl=833) 2.0 <=5.9 RECOMMENDED COUMADIN/WARFARIN INR THERAPY RANGESSTANDARD DOSE: 2.0 - 3.0 Includes: PROPHYLAXIS forvenous thrombosis, systemic embolization; TREATMENT for venous thrombosis and/or pulmonary embolus.HIGH RISK: Target INR is 2.5-3.5 for patients with mechanical heart valves.CBC W/PLT COUNT & AUTO [id number] 05:10:00 Test Item Value Reference Range Comments WHITE BLOOD CELL COUNT (BEAKER) (test kosp=958) 5.6 K/ L 3.5-10.5 RED BLOOD CELL COUNT (BEAKER) (test ngnl=536) 2.09 M/ L 4.63-6.08 HEMOGLOBIN (BEAKER) (test ulrx=014) 6.5 GM/DL 13.7-17.5 HEMATOCRIT (BEAKER) (test rrjp=294) 19.8 % 40.1-51.0 MEAN CORPUSCULAR VOLUME (BEAKER) (test grcw=192) 94.7 fL 79.0-92.2 MEAN CORPUSCULAR HEMOGLOBIN (BEAKER) (test 31.1 pg 25.7-32.2 wvkw=571) MEAN CORPUSCULAR HEMOGLOBIN CONC (BEAKER) (test 32.8 GM/DL 32.3-36.5 eark=125) RED CELL DISTRIBUTION WIDTH (BEAKER) (test 17.3 % 11.6-14.4 rpmj=833) PLATELET COUNT (BEAKER) (test fmry=888) 57 K/CU MM 150-450 MEAN PLATELET VOLUME (BEAKER) (test meqw=004) 8.9 fL 9.4-12.4 NUCLEATED RED BLOOD CELLS (BEAKER) (test 0 /100 WBC 0-0 ptnl=899) NEUTROPHILS RELATIVE PERCENT (BEAKER) (test 71 % mgjk=615) LYMPHOCYTES RELATIVE PERCENT (BEAKER) (test 9 % xsyr=518) MONOCYTES RELATIVE PERCENT (BEAKER) (test 16 % rjto=406) EOSINOPHILS RELATIVE PERCENT (BEAKER) (test 3 % ible=003) BASOPHILS RELATIVE PERCENT (BEAKER) (test 0 % awmp=623) NEUTROPHILS ABSOLUTE COUNT (BEAKER) (test 3.93 K/ L 1.78-5.38 sbuu=950) LYMPHOCYTES ABSOLUTE COUNT (BEAKER) (test 0.52 K/ L 1.32-3.57 emqd=133) MONOCYTES ABSOLUTE COUNT (BEAKER) (test pczz=866) 0.87 K/ L 0.30-0.82 EOSINOPHILS ABSOLUTE COUNT (BEAKER) (test 0.19 K/ L 0.04-0.54 gcux=662) BASOPHILS ABSOLUTE COUNT (BEAKER) (test tnkq=350) 0.01 K/ L 0.01-0.08 IMMATURE GRANULOCYTES-RELATIVE PERCENT (BEAKER) 1 % 0-1 (test wreg=6563) HEPATIC FUNCTION [id number] 11:05:00 Test Item Value Reference Range Comments TOTAL PROTEIN (BEAKER) (test gszw=630) 5.7 gm/dL 6.0-8.3 ALBUMIN (BEAKER) (test krkc=5732) 3.9 g/dL 3.5-5.0 BILIRUBIN TOTAL (BEAKER) (test nhov=650) 4.9 mg/dL 0.2-1.2 BILIRUBIN DIRECT (BEAKER) (test emwo=472) 2.0 mg/dL 0.1-0.5 ALKALINE PHOSPHATASE (BEAKER) (test izbo=862) 98 U/L 40-150 AST (SGOT) (BEAKER) (test pnho=311) 19 U/L 5-34 ALT (SGPT) (BEAKER) (test hkpa=624) 8 U/L 6-55 Specimen moderately ictericBASIC METABOLIC [id number] 10:06:00 Test Item Value Reference Range Comments SODIUM (BEAKER) (test 132 meq/L 136-145 ewkp=489) POTASSIUM (BEAKER) (test 5.0 meq/L 3.5-5.1 sjjh=290) CHLORIDE (BEAKER) (test 97 meq/L 98-107 ejsl=504) CO2 (BEAKER) (test 25 meq/L 22-29 ymbx=165) BLOOD UREA NITROGEN 17 mg/dL 7-21 (BEAKER) (test oemm=028) CREATININE (BEAKER) (test 1.33 mg/dL 0.57-1.25 xydv=871) GLUCOSE RANDOM (BEAKER) 181 mg/dL 70-105 (test jdal=726) CALCIUM (BEAKER) (test 9.4 mg/dL 8.4-10.2 fcvz=495) EGFR (BEAKER) (test 56 mL/min/1.73 sq m ESTIMATED GFR IS NOT zsdw=5986) ACCURATE CREATININE CLEARANCE IN PREDICTING GLOMERULAR FILTRATION RATE. ESTIMATED GFR IS NOT APPLICABLE FOR DIALYSIS PATIENTS. Specimen moderately ictericCBC W/PLT COUNT & AUTO [id number] 07: 45:00 Test Item Value Reference Range Comments WHITE BLOOD CELL COUNT (BEAKER) (test hijm=392) 3.4 K/ L 3.5-10.5 RED BLOOD CELL COUNT (BEAKER) (test impx=762) 2.26 M/ L 4.63-6.08 HEMOGLOBIN (BEAKER) (test ruiw=603) 7.0 GM/DL 13.7-17.5 HEMATOCRIT (BEAKER) (test slfs=547) 21.6 % 40.1-51.0 MEAN CORPUSCULAR VOLUME (BEAKER) (test rmwv=720) 95.6 fL 79.0-92.2 MEAN CORPUSCULAR HEMOGLOBIN (BEAKER) (test 31.0 pg 25.7-32.2 nzfy=288) MEAN CORPUSCULAR HEMOGLOBIN CONC (BEAKER) (test 32.4 GM/DL 32.3-36.5 lnys=189) RED CELL DISTRIBUTION WIDTH (BEAKER) (test 17.3 % 11.6-14.4 kviw=355) PLATELET COUNT (BEAKER) (test unti=459) 66 K/CU MM 150-450 MEAN PLATELET VOLUME (BEAKER) (test pxpz=406) 9.8 fL 9.4-12.4 NUCLEATED RED BLOOD CELLS (BEAKER) (test 0 /100 WBC 0-0 thwd=095) NEUTROPHILS RELATIVE PERCENT (BEAKER) (test 87 % wfmt=145) LYMPHOCYTES RELATIVE PERCENT (BEAKER) (test 7 % nnsb=001) MONOCYTES RELATIVE PERCENT (BEAKER) (test 5 % ttnd=332) EOSINOPHILS RELATIVE PERCENT (BEAKER) (test 0 % lsxi=143) BASOPHILS RELATIVE PERCENT (BEAKER) (test 0 % skjy=645) NEUTROPHILS ABSOLUTE COUNT (BEAKER) (test 2.94 K/ L 1.78-5.38 dety=628) LYMPHOCYTES ABSOLUTE COUNT (BEAKER) (test 0.23 K/ L 1.32-3.57 ojxj=761) MONOCYTES ABSOLUTE COUNT (BEAKER) (test fgak=545) 0.17 K/ L 0.30-0.82 EOSINOPHILS ABSOLUTE COUNT (BEAKER) (test 0.00 K/ L 0.04-0.54 fsiy=706) BASOPHILS ABSOLUTE COUNT (BEAKER) (test drio=654) 0.00 K/ L 0.01-0.08 IMMATURE GRANULOCYTES-RELATIVE PERCENT (BEAKER) 1 % 0-1 (test wnsh=4645) PROTHROMBIN [id number] 06:06:00 Test Item Value Reference Range Comments PROTIME (BEAKER) (test zvex=412) 19.1 seconds 11.7-14.7 INR (BEAKER) (test wqlh=234) 1.6 <=5.9 RECOMMENDED COUMADIN/WARFARIN INR THERAPY RANGESSTANDARD DOSE: 2.0 - 3.0 Includes: PROPHYLAXIS forvenous thrombosis, systemic embolization; TREATMENT for venous thrombosis and/or pulmonary embolus.HIGH RISK: Target INR is 2.5-3.5 for patients with mechanical heart valves.[id number] 15:35:00 Test Item Value Reference Range Comments PROTIME (BEAKER) (test akum=491) 20.3 seconds 11.7-14.7 INR (BEAKER) (test osex=867) 1.7 <=5.9 PARTIAL THROMBOPLASTIN TIME (BEAKER) (test 46.2 seconds 22.5-36.0 siqn=986) RECOMMENDED COUMADIN/WARFARIN INR THERAPY RANGESSTANDARD DOSE: 2.0 - 3.0 Includes: PROPHYLAXIS forvenous thrombosis, systemic embolization; TREATMENT for venous thrombosis and/or pulmonary embolus.HIGH RISK: Target INR is 2.5-3.5 for patients with mechanical heart valves.30 minutes after administration of Anpufkp93 minutes after administration of KcentraPROTHROMBIN TIME/[id number] 15:33:00 Test Item Value Reference Range Comments PROTIME (BEAKER) (test btau=018) 20.1 seconds 11.7-14.7 INR (BEAKER) (test frsw=079) 1.7 <=5.9 RECOMMENDED COUMADIN/WARFARIN INR THERAPY RANGESSTANDARD DOSE: 2.0 - 3.0 Includes: PROPHYLAXIS forvenous thrombosis, systemic embolization; TREATMENT for venous thrombosis and/or pulmonary embolus.HIGH RISK: Target INR is 2.5-3.5 for patients with mechanical heart valves.Please draw 30 mins after Kcentra doseBODY FLUID CULTURE + GRAM [id number] 11:29:00 Test Item Value Reference Range Comments CULTURE (BEAKER) (test kliq=5130) No growth GRAM STAIN RESULT (BEAKER) (test <1+ WBCs xume=2570) GRAM STAIN RESULT (BEAKER) (test No organisms seen hkbs=85274) CT, [id number] 10:30:00FINAL REPORT HISTORY : r/o intra abdominal [...] MDReport Verified Date/Time: 05/08/2018 10:30:57 Reading Location: [facility] Diagnostic Imaging Reading Room - [place] [address] CBC W/PLT COUNT & AUTO [id number] 07:27:00 Test Item Value Reference Range Comments WHITE BLOOD CELL COUNT (BEAKER) (test hdaw=811) 3.1 K/ L 3.5-10.5 RED BLOOD CELL COUNT (BEAKER) (test cdmo=378) 2.27 M/ L 4.63-6.08 HEMOGLOBIN (BEAKER) (test eykv=441) 7.1 GM/DL 13.7-17.5 HEMATOCRIT (BEAKER) (test icyx=432) 21.4 % 40.1-51.0 MEAN CORPUSCULAR VOLUME (BEAKER) (test xgjg=115) 94.3 fL 79.0-92.2 MEAN CORPUSCULAR HEMOGLOBIN (BEAKER) (test 31.3 pg 25.7-32.2 ivbm=106) MEAN CORPUSCULAR HEMOGLOBIN CONC (BEAKER) (test 33.2 GM/DL 32.3-36.5 gabu=417) RED CELL DISTRIBUTION WIDTH (BEAKER) (test 17.5 % 11.6-14.4 gtud=730) PLATELET COUNT (BEAKER) (test qyoq=275) 43 K/CU MM 150-450 MEAN PLATELET VOLUME (BEAKER) (test zmcn=095) 8.7 fL 9.4-12.4 NUCLEATED RED BLOOD CELLS (BEAKER) (test 0 /100 WBC 0-0 xukz=684) NEUTROPHILS RELATIVE PERCENT (BEAKER) (test 60 % wtvx=116) LYMPHOCYTES RELATIVE PERCENT (BEAKER) (test 16 % iukc=220) MONOCYTES RELATIVE PERCENT (BEAKER) (test 17 % oprw=473) EOSINOPHILS RELATIVE PERCENT (BEAKER) (test 7 % dadb=757) BASOPHILS RELATIVE PERCENT (BEAKER) (test 0 % sxru=219) NEUTROPHILS ABSOLUTE COUNT (BEAKER) (test 1.85 K/ L 1.78-5.38 ssck=811) LYMPHOCYTES ABSOLUTE COUNT (BEAKER) (test 0.48 K/ L 1.32-3.57 cmmp=455) MONOCYTES ABSOLUTE COUNT (BEAKER) (test lvxe=191) 0.54 K/ L 0.30-0.82 EOSINOPHILS ABSOLUTE COUNT (BEAKER) (test 0.22 K/ L 0.04-0.54 kmfd=662) BASOPHILS ABSOLUTE COUNT (BEAKER) (test ltlc=250) 0.00 K/ L 0.01-0.08 IMMATURE GRANULOCYTES-RELATIVE PERCENT (BEAKER) 0 % 0-1 (test blyt=1286) CBC W/PLT COUNT & AUTO [id number] 07:26:00 Test Item Value Reference Range Comments WHITE BLOOD CELL COUNT (BEAKER) (test bdqp=104) 2.9 K/ L 3.5-10.5 RED BLOOD CELL COUNT (BEAKER) (test yaho=239) 2.25 M/ L 4.63-6.08 HEMOGLOBIN (BEAKER) (test iuaw=703) 7.1 GM/DL 13.7-17.5 HEMATOCRIT (BEAKER) (test yyah=278) 21.4 % 40.1-51.0 MEAN CORPUSCULAR VOLUME (BEAKER) (test qnzx=947) 95.1 fL 79.0-92.2 MEAN CORPUSCULAR HEMOGLOBIN (BEAKER) (test 31.6 pg 25.7-32.2 vxdy=516) MEAN CORPUSCULAR HEMOGLOBIN CONC (BEAKER) (test 33.2 GM/DL 32.3-36.5 lnlv=904) RED CELL DISTRIBUTION WIDTH (BEAKER) (test 17.5 % 11.6-14.4 xtgd=312) PLATELET COUNT (BEAKER) (test bdza=722) 44 K/CU MM 150-450 MEAN PLATELET VOLUME (BEAKER) (test cyvo=198) 9.3 fL 9.4-12.4 NUCLEATED RED BLOOD CELLS (BEAKER) (test 0 /100 WBC 0-0 goml=304) NEUTROPHILS RELATIVE PERCENT (BEAKER) (test 59 % zngk=421) LYMPHOCYTES RELATIVE PERCENT (BEAKER) (test 16 % vmrn=109) MONOCYTES RELATIVE PERCENT (BEAKER) (test 17 % doxx=747) EOSINOPHILS RELATIVE PERCENT (BEAKER) (test 7 % gddj=476) BASOPHILS RELATIVE PERCENT (BEAKER) (test 0 % fwvh=410) NEUTROPHILS ABSOLUTE COUNT (BEAKER) (test 1.72 K/ L 1.78-5.38 valo=024) LYMPHOCYTES ABSOLUTE COUNT (BEAKER) (test 0.46 K/ L 1.32-3.57 rciz=573) MONOCYTES ABSOLUTE COUNT (BEAKER) (test msoy=575) 0.51 K/ L 0.30-0.82 EOSINOPHILS ABSOLUTE COUNT (BEAKER) (test 0.21 K/ L 0.04-0.54 ytsj=854) BASOPHILS ABSOLUTE COUNT (BEAKER) (test prkb=106) 0.01 K/ L 0.01-0.08 IMMATURE GRANULOCYTES-RELATIVE PERCENT (BEAKER) 1 % 0-1 (test sath=3063) BASIC METABOLIC [id number] 07:00:00 Test Item Value Reference Range Comments SODIUM (BEAKER) (test 130 meq/L 136-145 ndbn=546) POTASSIUM (BEAKER) (test 3.6 meq/L 3.5-5.1 cecu=282) CHLORIDE (BEAKER) (test 94 meq/L 98-107 prwr=371) CO2 (BEAKER) (test 27 meq/L 22-29 cixn=801) BLOOD UREA NITROGEN 19 mg/dL 7-21 (BEAKER) (test hhoj=395) CREATININE (BEAKER) (test 1.40 mg/dL 0.57-1.25 tuqy=897) GLUCOSE RANDOM (BEAKER) 111 mg/dL 70-105 (test bmyd=769) CALCIUM (BEAKER) (test 9.2 mg/dL 8.4-10.2 uwyu=008) EGFR (BEAKER) (test 53 mL/min/1.73 sq m ESTIMATED GFR IS NOT bbcz=2785) ACCURATE CREATININE CLEARANCE IN PREDICTING GLOMERULAR FILTRATION RATE. ESTIMATED GFR IS NOT APPLICABLE FOR DIALYSIS PATIENTS. Specimen moderately ictericCOMPREHENSIVE METABOLIC [id number] 07:00:00 Test Item Value Reference Range Comments TOTAL PROTEIN (BEAKER) 5.7 gm/dL 6.0-8.3 (test giyh=558) ALBUMIN (BEAKER) (test 4.0 g/dL 3.5-5.0 lcri=9801) ALKALINE PHOSPHATASE 92 U/L 40-150 (BEAKER) (test ocbe=491) BILIRUBIN TOTAL (BEAKER) 4.6 mg/dL 0.2-1.2 (test ejwy=666) SODIUM (BEAKER) (test 130 meq/L 136-145 bxdh=764) POTASSIUM (BEAKER) (test 3.6 meq/L 3.5-5.1 jmxj=869) CHLORIDE (BEAKER) (test 94 meq/L 98-107 jgca=685) CO2 (BEAKER) (test 27 meq/L 22-29 hrod=058) BLOOD UREA NITROGEN 19 mg/dL 7-21 (BEAKER) (test tppw=212) CREATININE (BEAKER) (test 1.40 mg/dL 0.57-1.25 mgcf=165) GLUCOSE RANDOM (BEAKER) 111 mg/dL 70-105 (test armv=361) CALCIUM (BEAKER) (test 9.2 mg/dL 8.4-10.2 asxy=333) AST (SGOT) (BEAKER) (test 16 U/L 5-34 xhoq=035) ALT (SGPT) (BEAKER) (test 6 U/L 6-55 fbuk=409) EGFR (BEAKER) (test 53 mL/min/1.73 sq m ESTIMATED GFR IS NOT bfxc=3826) ACCURATE CREATININE CLEARANCE IN PREDICTING GLOMERULAR FILTRATION RATE. ESTIMATED GFR IS NOT APPLICABLE FOR DIALYSIS PATIENTS. Specimen moderately ictericHEPATIC FUNCTION [id number] 07:00:00 Test Item Value Reference Range Comments TOTAL PROTEIN (BEAKER) (test nzgp=268) 5.7 gm/dL 6.0-8.3 ALBUMIN (BEAKER) (test nquq=4262) 4.0 g/dL 3.5-5.0 BILIRUBIN TOTAL (BEAKER) (test vrks=733) 4.6 mg/dL 0.2-1.2 BILIRUBIN DIRECT (BEAKER) (test xjyi=667) 1.8 mg/dL 0.1-0.5 ALKALINE PHOSPHATASE (BEAKER) (test uoil=087) 92 U/L 40-150 AST (SGOT) (BEAKER) (test yack=288) 16 U/L 5-34 ALT (SGPT) (BEAKER) (test nyra=908) 6 U/L 6-55 Specimen moderately [id number] 06:57:00 Test Item Value Reference Range Comments PARTIAL THROMBOPLASTIN TIME (BEAKER) (test 47.9 seconds 22.5-36.0 jtfu=371) PROTHROMBIN [id number] 06:55:00 Test Item Value Reference Range Comments PROTIME (BEAKER) (test lksn=816) 23.7 seconds 11.7-14.7 INR (BEAKER) (test frlu=336) 2.1 <=5.9 RECOMMENDED COUMADIN/WARFARIN INR THERAPY RANGESSTANDARD DOSE: 2.0 - 3.0 Includes: PROPHYLAXIS forvenous thrombosis, systemic embolization; TREATMENT for venous thrombosis and/or pulmonary embolus.HIGH RISK: Target INR is 2.5-3.5 for patients with mechanical heart valves.MR, SPINE, LUMBAR, WITHOUT [id number] 16:57:00FINAL REPORT MRI lumbar spine without contrast [...] Bain Verified Date/Time: 05/07/2018 16:57:00 Reading Location: [facility] Radiology Reading Room LACTIC ACID, VENOUS, WHOLE [id number] 14:13:00 Test Item Value Reference Range Comments LACTATE BLOOD VENOUS (2) (BEAKER) (test 2.6 mmol/L 0.5-2.2 omjf=3353) Effective 02/28/2016: Units/Reference Range ChangeNew: 0.5-2.2 mmol/L Previous: 5 -20 mg/dLSpecimen slightly ictericHEMOGLOBIN AND [id number] 13:51:00 Test Item Value Reference Range Comments HEMOGLOBIN (BEAKER) (test pycp=964) 7.1 GM/DL 13.7-17.5 HEMATOCRIT (BEAKER) (test rmfp=279) 21.7 % 40.1-51.0 U/S, RENAL, [id number] 09:48:00Reason for exam:->AKIFINAL REPORT Renal ultrasound Clinical [...] MDReport Verified Date/Time: 05/07/2018 09:48:55 Reading Location: [address] Ultrasound Reading Room Electronically signed by: REECE HAQUE MD on 09:[id number] 09:04:00 Test Item Value Reference Range Comments MAGNESIUM (BEAKER) (test boij=912) 2.0 mg/dL 1.6-2.6 COMPREHENSIVE METABOLIC [id number] 09:04:00 Test Item Value Reference Range Comments TOTAL PROTEIN (BEAKER) 5.2 gm/dL 6.0-8.3 (test xbjp=981) ALBUMIN (BEAKER) (test 3.5 g/dL 3.5-5.0 sxxq=3861) ALKALINE PHOSPHATASE 96 U/L 40-150 (BEAKER) (test ovxt=795) BILIRUBIN TOTAL (BEAKER) 4.1 mg/dL 0.2-1.2 (test qxry=195) SODIUM (BEAKER) (test 129 meq/L 136-145 ldww=978) POTASSIUM (BEAKER) (test 3.8 meq/L 3.5-5.1 gtcs=968) CHLORIDE (BEAKER) (test 96 meq/L 98-107 zpeq=210) CO2 (BEAKER) (test 25 meq/L 22-29 cyeb=332) BLOOD UREA NITROGEN 22 mg/dL 7-21 (BEAKER) (test fpig=027) CREATININE (BEAKER) (test 1.57 mg/dL 0.57-1.25 cqrw=292) GLUCOSE RANDOM (BEAKER) 122 mg/dL 70-105 (test tswr=972) CALCIUM (BEAKER) (test 8.9 mg/dL 8.4-10.2 zjti=225) AST (SGOT) (BEAKER) (test 15 U/L 5-34 efah=066) ALT (SGPT) (BEAKER) (test 7 U/L 6-55 vfis=850) EGFR (BEAKER) (test 47 mL/min/1.73 sq m ESTIMATED GFR IS NOT kdwz=9887) ACCURATE CREATININE CLEARANCE IN PREDICTING GLOMERULAR FILTRATION RATE. ESTIMATED GFR IS NOT APPLICABLE FOR DIALYSIS PATIENTS. Specimen moderately ictericHEPATIC FUNCTION [id number] 09:04:00 Test Item Value Reference Range Comments TOTAL PROTEIN (BEAKER) (test nvlg=138) 5.2 gm/dL 6.0-8.3 ALBUMIN (BEAKER) (test cxrq=6341) 3.5 g/dL 3.5-5.0 BILIRUBIN TOTAL (BEAKER) (test jckk=853) 4.1 mg/dL 0.2-1.2 BILIRUBIN DIRECT (BEAKER) (test ezsr=895) 1.8 mg/dL 0.1-0.5 ALKALINE PHOSPHATASE (BEAKER) (test pjdj=090) 96 U/L 40-150 AST (SGOT) (BEAKER) (test krdg=617) 15 U/L 5-34 ALT (SGPT) (BEAKER) (test rghz=589) 7 U/L 6-55 Specimen moderately ictericCBC W/PLT COUNT & AUTO [id number] 08: 26:00 Test Item Value Reference Range Comments WHITE BLOOD CELL COUNT (BEAKER) (test usfd=173) 2.7 K/ L 3.5-10.5 RED BLOOD CELL COUNT (BEAKER) (test upwo=438) 2.13 M/ L 4.63-6.08 HEMOGLOBIN (BEAKER) (test kxct=903) 6.8 GM/DL 13.7-17.5 HEMATOCRIT (BEAKER) (test hvei=253) 19.5 % 40.1-51.0 MEAN CORPUSCULAR VOLUME (BEAKER) (test asoi=481) 91.5 fL 79.0-92.2 MEAN CORPUSCULAR HEMOGLOBIN (BEAKER) (test 31.9 pg 25.7-32.2 paat=587) MEAN CORPUSCULAR HEMOGLOBIN CONC (BEAKER) (test 34.9 GM/DL 32.3-36.5 nupk=949) RED CELL DISTRIBUTION WIDTH (BEAKER) (test 17.5 % 11.6-14.4 jdkq=148) PLATELET COUNT (BEAKER) (test rxtf=491) 52 K/CU MM 150-450 MEAN PLATELET VOLUME (BEAKER) (test imzg=479) 9.1 fL 9.4-12.4 NUCLEATED RED BLOOD CELLS (BEAKER) (test 0 /100 WBC 0-0 juhg=734) NEUTROPHILS RELATIVE PERCENT (BEAKER) (test 62 % idad=859) LYMPHOCYTES RELATIVE PERCENT (BEAKER) (test 16 % alzj=656) MONOCYTES RELATIVE PERCENT (BEAKER) (test 17 % wgdu=330) EOSINOPHILS RELATIVE PERCENT (BEAKER) (test 4 % iiex=487) BASOPHILS RELATIVE PERCENT (BEAKER) (test 0 % levm=193) NEUTROPHILS ABSOLUTE COUNT (BEAKER) (test 1.66 K/ L 1.78-5.38 kixz=837) LYMPHOCYTES ABSOLUTE COUNT (BEAKER) (test 0.43 K/ L 1.32-3.57 zrrs=551) MONOCYTES ABSOLUTE COUNT (BEAKER) (test mrot=484) 0.44 K/ L 0.30-0.82 EOSINOPHILS ABSOLUTE COUNT (BEAKER) (test 0.11 K/ L 0.04-0.54 gdai=115) BASOPHILS ABSOLUTE COUNT (BEAKER) (test aoou=168) 0.00 K/ L 0.01-0.08 IMMATURE GRANULOCYTES-RELATIVE PERCENT (BEAKER) 1 % 0-1 (test qxqh=8521) PROTHROMBIN [id number] 08:08:00 Test Item Value Reference Range Comments PROTIME (BEAKER) (test nefz=059) 28.3 seconds 11.7-14.7 INR (BEAKER) (test blon=347) 2.7 <=5.9 RECOMMENDED COUMADIN/WARFARIN INR THERAPY RANGESSTANDARD DOSE: 2.0 - 3.0 Includes: PROPHYLAXIS forvenous thrombosis, systemic embolization; TREATMENT for venous thrombosis and/or pulmonary embolus.HIGH RISK: Target INR is 2.5-3.5 for patients with mechanical heart valves.[id number] 19:47:00 Test Item Value Reference Range Comments SODIUM (BEAKER) (test jihn=004) 129 meq/L 136-145 POTASSIUM (BEAKER) (test tigr=694) 4.6 meq/L 3.5-5.1 CHLORIDE (BEAKER) (test wuny=992) 96 meq/L 98-107 CO2 (BEAKER) (test jaor=389) 22 meq/L 22-29 Call [id number] AND [id number] 19:27:00 Test Item Value Reference Range Comments HEMOGLOBIN (BEAKER) (test rrtf=382) 7.1 GM/DL 13.7-17.5 HEMATOCRIT (BEAKER) (test xrqx=012) 21.4 % 40.1-51.0 Draw after transfusion of 1u RBC, notify hospitalist if Hgb remains less than 7.0HEMOGLOBIN AND [id number] 11:52:00 Test Item Value Reference Range Comments HEMOGLOBIN (BEAKER) (test hnos=818) 6.3 GM/DL 13.7-17.5 HEMATOCRIT (BEAKER) (test nbjb=925) 18.9 % 40.1-51.0 Notify Hepatology if Hgb< 7.0YUNIOR Sandoval PA-CPager#: .BASIC METABOLIC [id number] 05:55:00 Test Item Value Reference Range Comments SODIUM (BEAKER) (test 129 meq/L 136-145 ksjj=122) POTASSIUM (BEAKER) (test 5.2 meq/L 3.5-5.1 ztwd=331) CHLORIDE (BEAKER) (test 97 meq/L 98-107 nymv=691) CO2 (BEAKER) (test 22 meq/L 22-29 xyvz=796) BLOOD UREA NITROGEN 28 mg/dL 7-21 (BEAKER) (test ydlk=965) CREATININE (BEAKER) (test 1.95 mg/dL 0.57-1.25 raan=031) GLUCOSE RANDOM (BEAKER) 102 mg/dL 70-105 (test jyld=654) CALCIUM (BEAKER) (test 9.4 mg/dL 8.4-10.2 kskd=106) EGFR (BEAKER) (test 36 mL/min/1.73 sq m ESTIMATED GFR IS NOT psqe=9370) ACCURATE CREATININE CLEARANCE IN PREDICTING GLOMERULAR FILTRATION RATE. ESTIMATED GFR IS NOT APPLICABLE FOR DIALYSIS PATIENTS. Specimen slightly ictericHEPATIC FUNCTION [id number] 05:55:00 Test Item Value Reference Range Comments TOTAL PROTEIN (BEAKER) (test stfj=189) 5.6 gm/dL 6.0-8.3 ALBUMIN (BEAKER) (test nxhd=1772) 3.4 g/dL 3.5-5.0 BILIRUBIN TOTAL (BEAKER) (test qiqu=390) 3.7 mg/dL 0.2-1.2 BILIRUBIN DIRECT (BEAKER) (test uhzb=917) 2.5 mg/dL 0.1-0.5 ALKALINE PHOSPHATASE (BEAKER) (test llrm=005) 108 U/L 40-150 AST (SGOT) (BEAKER) (test omjk=523) 17 U/L 5-34 ALT (SGPT) (BEAKER) (test ioab=863) 7 U/L 6-55 Specimen slightly ictericCBC W/PLT COUNT & AUTO [id number] 05:42 :00 Test Item Value Reference Range Comments WHITE BLOOD CELL COUNT (BEAKER) (test fypk=325) 3.7 K/ L 3.5-10.5 RED BLOOD CELL COUNT (BEAKER) (test sprg=910) 2.10 M/ L 4.63-6.08 HEMOGLOBIN (BEAKER) (test sspn=180) 6.5 GM/DL 13.7-17.5 HEMATOCRIT (BEAKER) (test asrx=913) 19.8 % 40.1-51.0 MEAN CORPUSCULAR VOLUME (BEAKER) (test tkms=005) 94.3 fL 79.0-92.2 MEAN CORPUSCULAR HEMOGLOBIN (BEAKER) (test 31.0 pg 25.7-32.2 ssku=929) MEAN CORPUSCULAR HEMOGLOBIN CONC (BEAKER) (test 32.8 GM/DL 32.3-36.5 acbs=286) RED CELL DISTRIBUTION WIDTH (BEAKER) (test 16.4 % 11.6-14.4 kojh=984) PLATELET COUNT (BEAKER) (test plpb=281) 54 K/CU MM 150-450 MEAN PLATELET VOLUME (BEAKER) (test bfxz=679) 9.8 fL 9.4-12.4 NUCLEATED RED BLOOD CELLS (BEAKER) (test 0 /100 WBC 0-0 pdzw=790) NEUTROPHILS RELATIVE PERCENT (BEAKER) (test 62 % ujos=576) LYMPHOCYTES RELATIVE PERCENT (BEAKER) (test 15 % jwrj=632) MONOCYTES RELATIVE PERCENT (BEAKER) (test 18 % aqbs=486) EOSINOPHILS RELATIVE PERCENT (BEAKER) (test 3 % gjbw=421) BASOPHILS RELATIVE PERCENT (BEAKER) (test 0 % bwqh=014) NEUTROPHILS ABSOLUTE COUNT (BEAKER) (test 2.27 K/ L 1.78-5.38 gfih=199) LYMPHOCYTES ABSOLUTE COUNT (BEAKER) (test 0.56 K/ L 1.32-3.57 zgzm=560) MONOCYTES ABSOLUTE COUNT (BEAKER) (test yzlo=722) 0.66 K/ L 0.30-0.82 EOSINOPHILS ABSOLUTE COUNT (BEAKER) (test 0.12 K/ L 0.04-0.54 vlbn=366) BASOPHILS ABSOLUTE COUNT (BEAKER) (test ahgl=057) 0.01 K/ L 0.01-0.08 IMMATURE GRANULOCYTES-RELATIVE PERCENT (BEAKER) 1 % 0-1 (test jhnw=3641) PROTHROMBIN [id number] 05:34:00 Test Item Value Reference Range Comments PROTIME (BEAKER) (test hlib=834) 21.7 seconds 11.7-14.7 INR (BEAKER) (test drap=969) 1.9 <=5.9 RECOMMENDED COUMADIN/WARFARIN INR THERAPY RANGESSTANDARD DOSE: 2.0 - 3.0 Includes: PROPHYLAXIS forvenous thrombosis, systemic embolization; TREATMENT for venous thrombosis and/or pulmonary embolus.HIGH RISK: Target INR is 2.5-3.5 for patients with mechanical heart valves.EOSINOPHIL SMEAR, [id number] 21: 51:00 Test Item Value Reference Range Comments EOSINOPHIL SMEAR, URINE (BEAKER) (test No EOS seen No EOS seen gweb=4222) BODY FLUID CELL COUNT WITH [id number] 21:42:00 Test Item Value Reference Range Comments APPEARANCE FLUID (BEAKER) (test uavf=867) Hazy Clear COLOR FLUID (BEAKER) (test jwxt=748) Yellow Colorless, Straw RBC FLUID (BEAKER) (test nfzm=905) 70 /cu mm <=1 ADJUSTED WBC FLUID (BEAKER) (test lqef=2253) 44 /cu mm <=5 LINING CELLS (BEAKER) (test dlls=1992) 8 /cu mm <=1 NEUTROPHILS FLUID (BEAKER) (test txkd=6400) 0 % LYMPHS FLUID (BEAKER) (test brce=823) 11 % MONO/MACROPHAGE FLUID (BEAKER) (test vmjd=061) 89 % EOSINOPHILS FLUID (BEAKER) (test uucy=738) 0 % BASO FLUID (BEAKER) (test szla=532) 0 % CONTAINER BODY FLUID (BEAKER) (test ewhm=2639) EDTA Tube OSMOLALITY, [id number] 19:46:00 Test Item Value Reference Range Comments OSMOLALITY URINE (BEAKER) (test pbgv=251) 355 mOsm/kg 40-1400 SODIUM, RANDOM [id number] 19:35:00 Test Item Value Reference Range Comments SODIUM URINE (BEAKER) (test zknv=991) < meq/L Reference Range: No NormalsPROTEIN, RANDOM [id number] 19:27:00 Test Item Value Reference Range Comments PROTEIN, URINE (BEAKER) (test juyo=8398) 7 mg/dL 0-14 CREATININE, RANDOM [id number] 19:25:00 Test Item Value Reference Range Comments CREATININE URINE (BEAKER) (test qabk=080) 150.3 mg/dL Reference Range: No [id number] 16:26:00 Test Item Value Reference Range Comments PREALBUMIN (BEAKER) (test eoln=877) 5 mg/dL 14-45 Listed for OLT - Nutrition Surveillance ([facility] Hepatology Transplant Team)U/S, [id number] 14:56:00Reason for exam:->ascites - limit to 5L [...] MDReport Verified Date/Time: 05/05/2018 14:56:27 Reading Location: [address] Ultrasound Reading Room BASIC METABOLIC [id number] 09:36:00 Test Item Value Reference Range Comments SODIUM (BEAKER) (test 125 meq/L 136-145 pgpe=264) POTASSIUM (BEAKER) (test 4.2 meq/L 3.5-5.1 xpdq=317) CHLORIDE (BEAKER) (test 95 meq/L 98-107 imyw=817) CO2 (BEAKER) (test 23 meq/L 22-29 fznm=474) BLOOD UREA NITROGEN 29 mg/dL 7-21 (BEAKER) (test uxee=086) CREATININE (BEAKER) (test 2.01 mg/dL 0.57-1.25 saoa=653) GLUCOSE RANDOM (BEAKER) 112 mg/dL 70-105 (test dfql=932) CALCIUM (BEAKER) (test 9.2 mg/dL 8.4-10.2 gmut=614) EGFR (BEAKER) (test 35 mL/min/1.73 sq m ESTIMATED GFR IS NOT xypm=0041) ACCURATE CREATININE CLEARANCE IN PREDICTING GLOMERULAR FILTRATION RATE. ESTIMATED GFR IS NOT APPLICABLE FOR DIALYSIS PATIENTS. Specimen slightly ictericHEPATIC FUNCTION [id number] 09:36:00 Test Item Value Reference Range Comments TOTAL PROTEIN (BEAKER) (test nniq=768) 5.3 gm/dL 6.0-8.3 ALBUMIN (BEAKER) (test ozxy=8436) 3.0 g/dL 3.5-5.0 BILIRUBIN TOTAL (BEAKER) (test rnuz=913) 4.1 mg/dL 0.2-1.2 BILIRUBIN DIRECT (BEAKER) (test hygz=150) 2.8 mg/dL 0.1-0.5 ALKALINE PHOSPHATASE (BEAKER) (test ibvu=636) 115 U/L 40-150 AST (SGOT) (BEAKER) (test gapf=786) 20 U/L 5-34 ALT (SGPT) (BEAKER) (test lwps=805) 9 U/L 6-55 Specimen slightly ictericCBC W/PLT COUNT & AUTO [id number] 09:28 :00 Test Item Value Reference Range Comments WHITE BLOOD CELL COUNT (BEAKER) (test ofke=197) 4.4 K/ L 3.5-10.5 RED BLOOD CELL COUNT (BEAKER) (test uhjz=156) 2.20 M/ L 4.63-6.08 HEMOGLOBIN (BEAKER) (test srxj=873) 7.1 GM/DL 13.7-17.5 HEMATOCRIT (BEAKER) (test pnfz=278) 21.1 % 40.1-51.0 MEAN CORPUSCULAR VOLUME (BEAKER) (test yuud=166) 95.9 fL 79.0-92.2 MEAN CORPUSCULAR HEMOGLOBIN (BEAKER) (test 32.3 pg 25.7-32.2 oano=937) MEAN CORPUSCULAR HEMOGLOBIN CONC (BEAKER) (test 33.6 GM/DL 32.3-36.5 ytlg=172) RED CELL DISTRIBUTION WIDTH (BEAKER) (test 16.7 % 11.6-14.4 gjxe=046) PLATELET COUNT (BEAKER) (test pgkc=445) 60 K/CU MM 150-450 MEAN PLATELET VOLUME (BEAKER) (test jwyu=978) 9.7 fL 9.4-12.4 NUCLEATED RED BLOOD CELLS (BEAKER) (test 0 /100 WBC 0-0 kdra=746) NEUTROPHILS RELATIVE PERCENT (BEAKER) (test 71 % tjfw=304) LYMPHOCYTES RELATIVE PERCENT (BEAKER) (test 9 % fxyc=879) MONOCYTES RELATIVE PERCENT (BEAKER) (test 16 % gfhc=327) EOSINOPHILS RELATIVE PERCENT (BEAKER) (test 3 % hacc=270) BASOPHILS RELATIVE PERCENT (BEAKER) (test 0 % wkel=678) NEUTROPHILS ABSOLUTE COUNT (BEAKER) (test 3.10 K/ L 1.78-5.38 geww=461) LYMPHOCYTES ABSOLUTE COUNT (BEAKER) (test 0.39 K/ L 1.32-3.57 tcgq=770) MONOCYTES ABSOLUTE COUNT (BEAKER) (test tqxx=895) 0.69 K/ L 0.30-0.82 EOSINOPHILS ABSOLUTE COUNT (BEAKER) (test 0.12 K/ L 0.04-0.54 cnne=554) BASOPHILS ABSOLUTE COUNT (BEAKER) (test edee=094) 0.01 K/ L 0.01-0.08 IMMATURE GRANULOCYTES-RELATIVE PERCENT (BEAKER) 1 % 0-1 (test goqk=2846) PROTHROMBIN [id number] 09:07:00 Test Item Value Reference Range Comments PROTIME (BEAKER) (test saje=396) 21.6 seconds 11.7-14.7 INR (BEAKER) (test jwws=840) 1.9 <=5.9 RECOMMENDED COUMADIN/WARFARIN INR THERAPY RANGESSTANDARD DOSE: 2.0 - 3.0 Includes: PROPHYLAXIS forvenous thrombosis, systemic embolization; TREATMENT for venous thrombosis and/or pulmonary embolus.HIGH RISK: Target INR is 2.5-3.5 for patients with mechanical heart valves.[id number] 13:59:00 Test Item Value Reference Range Comments POC-CREATININE (BEAKER) 2.0 mg/dL 0.6-1.3 TESTED [address] (test bujs=5498) [facility] [address] POC-EGFR (BEAKER) (test 35 mL/min/1.73M2 mzwp=4804) PET/CT, LIMITED AREA [id number] 08:25:00PET/ CT ChestReason for Exam:-> Elongated nodular [...] thighsAdditional imaging: NoneSerum blood glucose: 119CPT Code: 84743 FINDINGS:Head and Neck: There is no trisha [...] Hung Verified Date/Time: 03/31/2018 08:25:09 POCT- GLUCOSE [id number] 14:54:00 Test Item Value Reference Range Comments POC-GLUCOSE METER (BEAKER) 119 mg/dL 70-110 TESTED AT [facility] [address] (test ziqp=6963) [facility] [address] COMPREHENSIVE METABOLIC [id number] 16:49:00 Test Item Value Reference Range Comments TOTAL PROTEIN (BEAKER) 6.2 gm/dL 6.0-8.3 (test imfk=917) ALBUMIN (BEAKER) (test 3.4 g/dL 3.5-5.0 gmow=7661) ALKALINE PHOSPHATASE 139 U/L 40-150 (BEAKER) (test ceaq=111) BILIRUBIN TOTAL (BEAKER) 4.0 mg/dL 0.2-1.2 (test pmdl=669) SODIUM (BEAKER) (test 129 meq/L 136-145 xoue=649) POTASSIUM (BEAKER) (test 4.3 meq/L 3.5-5.1 jvsr=487) CHLORIDE (BEAKER) (test 96 meq/L 98-107 ukoz=216) CO2 (BEAKER) (test 22 meq/L 22-29 bana=915) BLOOD UREA NITROGEN 28 mg/dL 7-21 (BEAKER) (test pmzf=745) CREATININE (BEAKER) (test 1.51 mg/dL 0.57-1.25 dtxs=057) GLUCOSE RANDOM (BEAKER) 89 mg/dL 70-105 (test vuto=166) CALCIUM (BEAKER) (test 9.5 mg/dL 8.4-10.2 vxgb=158) AST (SGOT) (BEAKER) (test 26 U/L 5-34 atfg=471) ALT (SGPT) (BEAKER) (test 11 U/L 6-55 gtnv=642) EGFR (BEAKER) (test 49 mL/min/1.73 sq m ESTIMATED GFR IS NOT phap=8594) ACCURATE CREATININE CLEARANCE IN PREDICTING GLOMERULAR FILTRATION RATE. ESTIMATED GFR IS NOT APPLICABLE FOR DIALYSIS PATIENTS. Specimen slightly ictericBILIRUBIN, [id number] 16:49:00 Test Item Value Reference Range Comments BILIRUBIN DIRECT (BEAKER) (test vqcy=566) 2.8 mg/dL 0.1-0.5 PROTHROMBIN [id number] 16:36:00 Test Item Value Reference Range Comments PROTIME (BEAKER) (test cajh=963) 19.0 seconds 11.7-14.7 INR (BEAKER) (test oeqw=687) 1.6 <=5.9 RECOMMENDED COUMADIN/WARFARIN INR THERAPY RANGESSTANDARD DOSE: 2.0 - 3.0 Includes: PROPHYLAXIS forvenous thrombosis, systemic embolization; TREATMENT for venous thrombosis and/or pulmonary embolus.HIGH RISK: Target INR is 2.5-3.5 for patients with mechanical heart valves.CBC W/PLT COUNT & AUTO [id number] 16:27:00 Test Item Value Reference Range Comments WHITE BLOOD CELL COUNT (BEAKER) (test fytm=467) 6.0 K/ L 3.5-10.5 RED BLOOD CELL COUNT (BEAKER) (test xrzj=599) 2.74 M/ L 4.63-6.08 HEMOGLOBIN (BEAKER) (test lkek=200) 9.3 GM/DL 13.7-17.5 HEMATOCRIT (BEAKER) (test asgh=783) 27.6 % 40.1-51.0 MEAN CORPUSCULAR VOLUME (BEAKER) (test arsy=026) 100.7 fL 79.0-92.2 MEAN CORPUSCULAR HEMOGLOBIN (BEAKER) (test 33.9 pg 25.7-32.2 qzkt=638) MEAN CORPUSCULAR HEMOGLOBIN CONC (BEAKER) (test 33.7 GM/DL 32.3-36.5 vkuy=307) RED CELL DISTRIBUTION WIDTH (BEAKER) (test 14.9 % 11.6-14.4 axhw=120) PLATELET COUNT (BEAKER) (test ilar=665) 96 K/CU MM 150-450 MEAN PLATELET VOLUME (BEAKER) (test kmzu=055) 9.4 fL 9.4-12.4 NUCLEATED RED BLOOD CELLS (BEAKER) (test 0 /100 WBC 0-0 ayvq=154) NEUTROPHILS RELATIVE PERCENT (BEAKER) (test 64 % roxb=540) LYMPHOCYTES RELATIVE PERCENT (BEAKER) (test 11 % rkpv=828) MONOCYTES RELATIVE PERCENT (BEAKER) (test 16 % wcfr=288) EOSINOPHILS RELATIVE PERCENT (BEAKER) (test 7 % aibq=196) BASOPHILS RELATIVE PERCENT (BEAKER) (test 1 % hvjq=364) NEUTROPHILS ABSOLUTE COUNT (BEAKER) (test 3.83 K/ L 1.78-5.38 hpla=614) LYMPHOCYTES ABSOLUTE COUNT (BEAKER) (test 0.66 K/ L 1.32-3.57 ovqx=877) MONOCYTES ABSOLUTE COUNT (BEAKER) (test yxzj=535) 0.95 K/ L 0.30-0.82 EOSINOPHILS ABSOLUTE COUNT (BEAKER) (test 0.41 K/ L 0.04-0.54 xibg=064) BASOPHILS ABSOLUTE COUNT (BEAKER) (test tban=975) 0.03 K/ L 0.01-0.08 IMMATURE GRANULOCYTES-RELATIVE PERCENT (BEAKER) 2 % 0-1 (test ykdk=5092) BASIC METABOLIC [id number] 08:26:00 Test Item Value Reference Range Comments SODIUM (BEAKER) (test 127 meq/L 136-145 fpqu=826) POTASSIUM (BEAKER) (test 4.3 meq/L 3.5-5.1 mbns=982) CHLORIDE (BEAKER) (test 96 meq/L 98-107 zprz=599) CO2 (BEAKER) (test 23 meq/L 22-29 enbu=779) BLOOD UREA NITROGEN 25 mg/dL 7-21 (BEAKER) (test iavy=378) CREATININE (BEAKER) (test 1.46 mg/dL 0.57-1.25 aepy=050) GLUCOSE RANDOM (BEAKER) 130 mg/dL 70-105 (test gzpq=851) CALCIUM (BEAKER) (test 9.1 mg/dL 8.4-10.2 qnxh=501) EGFR (BEAKER) (test 51 mL/min/1.73 sq m ESTIMATED GFR IS NOT krit=4666) ACCURATE CREATININE CLEARANCE IN PREDICTING GLOMERULAR FILTRATION RATE. ESTIMATED GFR IS NOT APPLICABLE FOR DIALYSIS PATIENTS. Specimen slightly ictericCBC (HEMOGRAM ONLY)[id number] 08:06:00 Test Item Value Reference Range Comments WHITE BLOOD CELL COUNT (BEAKER) (test pbnq=483) 5.4 K/ L 3.5-10.5 RED BLOOD CELL COUNT (BEAKER) (test slpd=385) 2.64 M/ L 4.63-6.08 HEMOGLOBIN (BEAKER) (test deig=746) 8.8 GM/DL 13.7-17.5 HEMATOCRIT (BEAKER) (test gaka=215) 26.2 % 40.1-51.0 MEAN CORPUSCULAR VOLUME (BEAKER) (test sgmj=448) 99.2 fL 79.0-92.2 MEAN CORPUSCULAR HEMOGLOBIN (BEAKER) (test 33.3 pg 25.7-32.2 oerq=842) MEAN CORPUSCULAR HEMOGLOBIN CONC (BEAKER) (test 33.6 GM/DL 32.3-36.5 cojd=645) RED CELL DISTRIBUTION WIDTH (BEAKER) (test 16.2 % 11.6-14.4 ypnk=143) PLATELET COUNT (BEAKER) (test wnmt=867) 100 K/CU MM 150-450 MEAN PLATELET VOLUME (BEAKER) (test kvrq=338) 8.7 fL 9.4-12.4 NUCLEATED RED BLOOD CELLS (BEAKER) (test 0 /100 WBC 0-0 trrp=200) COMPREHENSIVE METABOLIC [id number] 15:06:00 Test Item Value Reference Range Comments TOTAL PROTEIN (BEAKER) 6.5 gm/dL 6.0-8.3 (test ndmj=950) ALBUMIN (BEAKER) (test 3.7 g/dL 3.5-5.0 kzqa=2830) ALKALINE PHOSPHATASE 135 U/L 40-150 (BEAKER) (test jmlf=951) BILIRUBIN TOTAL (BEAKER) 4.5 mg/dL 0.2-1.2 (test etfg=416) SODIUM (BEAKER) (test 131 meq/L 136-145 cmmb=716) POTASSIUM (BEAKER) (test 5.8 meq/L 3.5-5.1 zlrh=716) CHLORIDE (BEAKER) (test 103 meq/L 98-107 uxlq=035) CO2 (BEAKER) (test 24 meq/L 22-29 aaja=728) BLOOD UREA NITROGEN 27 mg/dL 7-21 (BEAKER) (test csqm=603) CREATININE (BEAKER) (test 1.17 mg/dL 0.57-1.25 yeod=540) GLUCOSE RANDOM (BEAKER) 111 mg/dL 70-105 (test ngrf=794) CALCIUM (BEAKER) (test 11.0 mg/dL 8.4-10.2 ezir=436) AST (SGOT) (BEAKER) (test 28 U/L 5-34 hmla=216) ALT (SGPT) (BEAKER) (test 19 U/L 6-55 pxrj=642) EGFR (BEAKER) (test 65 mL/min/1.73 sq m ESTIMATED GFR IS NOT ecff=2517) ACCURATE CREATININE CLEARANCE IN PREDICTING GLOMERULAR FILTRATION RATE. ESTIMATED GFR IS NOT APPLICABLE FOR DIALYSIS PATIENTS. Specimen slightly ictericBILIRUBIN, [id number] 15:06:00 Test Item Value Reference Range Comments BILIRUBIN DIRECT (BEAKER) (test cdzz=285) 3.0 mg/dL 0.1-0.5 PROTHROMBIN [id number] 14:42:00 Test Item Value Reference Range Comments PROTIME (BEAKER) (test ghpj=471) 19.1 seconds 11.7-14.7 INR (BEAKER) (test tsaa=140) 1.6 <=5.9 RECOMMENDED COUMADIN/WARFARIN INR THERAPY RANGESSTANDARD DOSE: 2.0 - 3.0 Includes: PROPHYLAXIS forvenous thrombosis, systemic embolization; TREATMENT for venous thrombosis and/or pulmonary embolus.HIGH RISK: Target INR is 2.5-3.5 for patients with mechanical heart valves.CBC W/PLT COUNT & AUTO [id number] 14:36:00 Test Item Value Reference Range Comments WHITE BLOOD CELL COUNT (BEAKER) (test iger=047) 5.5 K/ L 3.5-10.5 RED BLOOD CELL COUNT (BEAKER) (test qfci=051) 2.84 M/ L 4.63-6.08 HEMOGLOBIN (BEAKER) (test hbkb=787) 9.5 GM/DL 13.7-17.5 HEMATOCRIT (BEAKER) (test qcjj=907) 28.8 % 40.1-51.0 MEAN CORPUSCULAR VOLUME (BEAKER) (test lawa=223) 101.4 fL 79.0-92.2 MEAN CORPUSCULAR HEMOGLOBIN (BEAKER) (test 33.5 pg 25.7-32.2 rtmr=357) MEAN CORPUSCULAR HEMOGLOBIN CONC (BEAKER) (test 33.0 GM/DL 32.3-36.5 saas=042) RED CELL DISTRIBUTION WIDTH (BEAKER) (test 19.4 % 11.6-14.4 zcae=342) PLATELET COUNT (BEAKER) (test kkjd=344) 65 K/CU MM 150-450 MEAN PLATELET VOLUME (BEAKER) (test qvpg=617) 8.8 fL 9.4-12.4 NUCLEATED RED BLOOD CELLS (BEAKER) (test 0 /100 WBC 0-0 gtnl=041) NEUTROPHILS RELATIVE PERCENT (BEAKER) (test 66 % rbcn=824) LYMPHOCYTES RELATIVE PERCENT (BEAKER) (test 14 % yxgk=453) MONOCYTES RELATIVE PERCENT (BEAKER) (test 15 % bimv=056) EOSINOPHILS RELATIVE PERCENT (BEAKER) (test 4 % lqjn=739) BASOPHILS RELATIVE PERCENT (BEAKER) (test 0 % qhip=655) NEUTROPHILS ABSOLUTE COUNT (BEAKER) (test 3.58 K/ L 1.78-5.38 fqwy=857) LYMPHOCYTES ABSOLUTE COUNT (BEAKER) (test 0.78 K/ L 1.32-3.57 ammx=348) MONOCYTES ABSOLUTE COUNT (BEAKER) (test uwfw=402) 0.79 K/ L 0.30-0.82 EOSINOPHILS ABSOLUTE COUNT (BEAKER) (test 0.23 K/ L 0.04-0.54 sywa=536) BASOPHILS ABSOLUTE COUNT (BEAKER) (test riks=536) 0.02 K/ L 0.01-0.08 IMMATURE GRANULOCYTES-RELATIVE PERCENT (BEAKER) 1 % 0-1 (test txer=0287) RAD, KNEE, COMPLETE (4 VIEWS), [id number] 11:15:00Reason for exam:->FALL , PAINFINAL REPORT Bilateral [...] MDReport Verified Date/Time: 01/06/2018 11:15:08 Reading Location: [facility] Radiology Reading Room RAD, KNEE, COMPLETE (4 VIEWS), [id number] 11:15:00Reason for exam:->FALL, PAINFINAL REPORT Bilateral knee [...] MDReport Verified Date/Time: 01/06/2018 11:15:08 Reading Location: [facility] Radiology Reading Room CBC W/PLT COUNT & AUTO [id number] 10: 58:00 Test Item Value Reference Range Comments WHITE BLOOD CELL COUNT (BEAKER) (test pbgb=064) 2.9 K/ L 3.5-10.5 RED BLOOD CELL COUNT (BEAKER) (test sjvs=979) 2.27 M/ L 4.63-6.08 HEMOGLOBIN (BEAKER) (test lzhu=286) 7.1 GM/DL 13.7-17.5 HEMATOCRIT (BEAKER) (test brrz=907) 21.0 % 40.1-51.0 MEAN CORPUSCULAR VOLUME (BEAKER) (test blht=862) 92.5 fL 79.0-92.2 MEAN CORPUSCULAR HEMOGLOBIN (BEAKER) (test 31.3 pg 25.7-32.2 zvlj=137) MEAN CORPUSCULAR HEMOGLOBIN CONC (BEAKER) (test 33.8 GM/DL 32.3-36.5 qxwb=769) RED CELL DISTRIBUTION WIDTH (BEAKER) (test 17.2 % 11.6-14.4 vjgu=441) PLATELET COUNT (BEAKER) (test brnm=259) 42 K/CU MM 150-450 MEAN PLATELET VOLUME (BEAKER) (test atlf=645) 10.1 fL 9.4-12.4 NUCLEATED RED BLOOD CELLS (BEAKER) (test 0 /100 WBC 0-0 qhho=965) NEUTROPHILS RELATIVE PERCENT (BEAKER) (test 77 % ejvh=086) LYMPHOCYTES RELATIVE PERCENT (BEAKER) (test 12 % beno=666) MONOCYTES RELATIVE PERCENT (BEAKER) (test 10 % wawp=994) EOSINOPHILS RELATIVE PERCENT (BEAKER) (test 1 % bbiq=440) BASOPHILS RELATIVE PERCENT (BEAKER) (test 0 % tuyv=116) NEUTROPHILS ABSOLUTE COUNT (BEAKER) (test 2.21 K/ L 1.78-5.38 vkzh=721) LYMPHOCYTES ABSOLUTE COUNT (BEAKER) (test 0.33 K/ L 1.32-3.57 ytge=694) MONOCYTES ABSOLUTE COUNT (BEAKER) (test quvf=454) 0.30 K/ L 0.30-0.82 EOSINOPHILS ABSOLUTE COUNT (BEAKER) (test 0.03 K/ L 0.04-0.54 ajwu=124) BASOPHILS ABSOLUTE COUNT (BEAKER) (test ucur=139) 0.00 K/ L 0.01-0.08 IMMATURE GRANULOCYTES-RELATIVE PERCENT (BEAKER) 0 % 0-1 (test pdkn=6037) [id number] 06:06:00 Test Item Value Reference Range Comments PHOSPHORUS (BEAKER) (test zmpr=828) 3.6 mg/dL 2.3-4.7 [id number] 06:06:00 Test Item Value Reference Range Comments MAGNESIUM (BEAKER) (test ropu=184) 2.0 mg/dL 1.6-2.6 BASIC METABOLIC [id number] 06:06:00 Test Item Value Reference Range Comments SODIUM (BEAKER) (test 130 meq/L 136-145 lqpn=813) POTASSIUM (BEAKER) (test 4.4 meq/L 3.5-5.1 fdhv=868) CHLORIDE (BEAKER) (test 100 meq/L 98-107 ekep=236) CO2 (BEAKER) (test 23 meq/L 22-29 aivs=173) BLOOD UREA NITROGEN 21 mg/dL 7-21 (BEAKER) (test fnxx=498) CREATININE (BEAKER) (test 1.11 mg/dL 0.57-1.25 npvf=286) GLUCOSE RANDOM (BEAKER) 120 mg/dL 70-105 (test bkdo=798) CALCIUM (BEAKER) (test 9.4 mg/dL 8.4-10.2 wgjk=237) EGFR (BEAKER) (test 70 mL/min/1.73 sq m ESTIMATED GFR IS NOT bpfw=5275) ACCURATE CREATININE CLEARANCE IN PREDICTING GLOMERULAR FILTRATION RATE. ESTIMATED GFR IS NOT APPLICABLE FOR DIALYSIS PATIENTS. Specimen slightly ictericPROTHROMBIN [id number] 06:02:00 Test Item Value Reference Range Comments PROTIME (BEAKER) (test vefx=830) 22.9 seconds 11.7-14.7 INR (BEAKER) (test tebt=408) 2.0 <=5.9 RECOMMENDED COUMADIN/WARFARIN INR THERAPY RANGESSTANDARD DOSE: 2.0 - 3.0 Includes: PROPHYLAXIS forvenous thrombosis, systemic embolization; TREATMENT for venous thrombosis and/or pulmonary embolus.HIGH RISK: Target INR is 2.5-3.5 for patients with mechanical heart valves.CALCIUM, [id number] 06:01:00 Test Item Value Reference Range Comments CALCIUM IONIZED (BEAKER) (test sbxt=451) 1.11 mmol/L 1.12-1.27 PH, BLOOD (BEAKER) (test unbe=3782) 7.53 CORTISOL,60 [id number] 23:20:00 Test Item Value Reference Range Comments CORTISOL BASELINE NETWORKED (BEAKER) (test 4.8 mcg/dL bsbo=6561) CORTISOL 30 MINUTE NETWORKED (BEAKER) (test 9.2 mcg/dL lrvu=5734) CORTISOL, 60 MINUTE (BEAKER) (test tpfn=0584) 12.6 ug/dL ACTH STIMULATION TEST INTERPRETATION GUIDELINES(Synonyms: [...] study by Mindy et al (NEVAEH 2000,283( 8):3014-45), the ACTH Stimulation Test provides important prognostic [...] serum cortisollevel 60 minutes after cosyntropin administration.CORTISOL,30 [id number] 22:35:00 Test Item Value Reference Range Comments CORTISOL BASELINE NETWORKED (BEAKER) (test 4.8 mcg/dL jnmr=8002) CORTISOL, 30 MINUTE (BEAKER) (test ihqv=7416) 9.2 ug/dL ACTH STIMULATION TEST INTERPRETATION GUIDELINES(Synonyms: [...] Draw serum cortisollevel 60 minutes after cosyntropin administration.CORTISOL,[id number] 22:35:00 Test Item Value Reference Range Comments CORTISOL, BASELINE (TUNG) (test wiwg=6367) 4.8 ug/dL ACTH STIMULATION TEST INTERPRETATION GUIDELINES(Synonyms: [...] serum cortisollevel 60 minutes after cosyntropin administration.U/S, [id number] 17:54:00Reason for exam:->therapeuticFINAL REPORT History: Ascites. PROCEDURE: Following informed written consent,the patient's right lower quadrant was prepped and draped in the usual sterile manner. 2% lidocaine was given locally for anesthesia. No conscious sedation was administered. Using ultrasound guidance, a 5 [place] one-step catheter was advanced percutaneously into the [...] Verified Date/Time: 01/05/2018 17: 54:16 Reading Location: [address] Ultrasound Reading Room [id number] 11:19:00 Test Item Value Reference Range Comments CORTISOL, TOTAL (BEAKER) (test tnef=4233) 2.7 ug/dL 3.7-19.4 [id number] 10:21:00 Test Item Value Reference Range Comments PHOSPHORUS (BEAKER) (test cnsl=726) 2.8 mg/dL 2.3-4.7 [id number] 10:21:00 Test Item Value Reference Range Comments MAGNESIUM (BEAKER) (test hdir=735) 1.9 mg/dL 1.6-2.6 BASIC METABOLIC [id number] 10:21:00 Test Item Value Reference Range Comments SODIUM (BEAKER) (test 127 meq/L 136-145 jius=560) POTASSIUM (BEAKER) (test 5.0 meq/L 3.5-5.1 jcgq=444) CHLORIDE (BEAKER) (test 100 meq/L 98-107 jqpa=308) CO2 (BEAKER) (test 22 meq/L 22-29 xxoq=618) BLOOD UREA NITROGEN 25 mg/dL 7-21 (BEAKER) (test lymz=288) CREATININE (BEAKER) (test 1.17 mg/dL 0.57-1.25 adup=064) GLUCOSE RANDOM (BEAKER) 84 mg/dL 70-105 (test rpmv=894) CALCIUM (BEAKER) (test 8.7 mg/dL 8.4-10.2 kbjn=582) EGFR (BEAKER) (test 65 mL/min/1.73 sq m ESTIMATED GFR IS NOT qmgp=2633) ACCURATE CREATININE CLEARANCE IN PREDICTING GLOMERULAR FILTRATION RATE. ESTIMATED GFR IS NOT APPLICABLE FOR DIALYSIS PATIENTS. Specimen slightly ictericCBC W/PLT COUNT & AUTO [id number] 08:42 :00 Test Item Value Reference Range Comments WHITE BLOOD CELL COUNT (BEAKER) (test hhmi=392) 2.7 K/ L 3.5-10.5 RED BLOOD CELL COUNT (BEAKER) (test moec=689) 2.33 M/ L 4.63-6.08 HEMOGLOBIN (BEAKER) (test uebf=106) 7.3 GM/DL 13.7-17.5 HEMATOCRIT (BEAKER) (test gfpe=771) 22.0 % 40.1-51.0 MEAN CORPUSCULAR VOLUME (BEAKER) (test zapd=659) 94.4 fL 79.0-92.2 MEAN CORPUSCULAR HEMOGLOBIN (BEAKER) (test 31.3 pg 25.7-32.2 jpvb=068) MEAN CORPUSCULAR HEMOGLOBIN CONC (BEAKER) (test 33.2 GM/DL 32.3-36.5 zsvd=907) RED CELL DISTRIBUTION WIDTH (BEAKER) (test 17.2 % 11.6-14.4 lsgs=629) PLATELET COUNT (BEAKER) (test zehx=500) 45 K/CU MM 150-450 MEAN PLATELET VOLUME (BEAKER) (test rnvg=794) 9.3 fL 9.4-12.4 NUCLEATED RED BLOOD CELLS (BEAKER) (test 0 /100 WBC 0-0 urfc=551) NEUTROPHILS RELATIVE PERCENT (BEAKER) (test 60 % mscg=203) LYMPHOCYTES RELATIVE PERCENT (BEAKER) (test 17 % uxzw=049) MONOCYTES RELATIVE PERCENT (BEAKER) (test 16 % majh=823) EOSINOPHILS RELATIVE PERCENT (BEAKER) (test 6 % ryrl=609) BASOPHILS RELATIVE PERCENT (BEAKER) (test 0 % yvcl=760) NEUTROPHILS ABSOLUTE COUNT (BEAKER) (test 1.63 K/ L 1.78-5.38 afww=581) LYMPHOCYTES ABSOLUTE COUNT (BEAKER) (test 0.45 K/ L 1.32-3.57 laho=792) MONOCYTES ABSOLUTE COUNT (BEAKER) (test kvtv=738) 0.44 K/ L 0.30-0.82 EOSINOPHILS ABSOLUTE COUNT (BEAKER) (test 0.16 K/ L 0.04-0.54 wqzg=470) BASOPHILS ABSOLUTE COUNT (BEAKER) (test vtne=318) 0.01 K/ L 0.01-0.08 IMMATURE GRANULOCYTES-RELATIVE PERCENT (BEAKER) 1 % 0-1 (test mjgv=5287) (MANUAL DIFFERENTIAL)2018-01-05 08:42:00 Test Item Value Reference Range Comments TOTAL COUNTED (BEAKER) (test yimv=0251) WBC MORPHOLOGY (BEAKER) (test dmoa=503) Normal PLT MORPHOLOGY (BEAKER) (test doyt=590) Normal ANISOCYTOSIS (BEAKER) (test retb=655) 1+ few CALCIUM, [id number] 08:10:00 Test Item Value Reference Range Comments CALCIUM IONIZED (BEAKER) (test mfow=804) 1.08 mmol/L 1.12-1.27 PH, BLOOD (BEAKER) (test dwmd=9731) 7.44 PROTHROMBIN [id number] 07:12:00 Test Item Value Reference Range Comments PROTIME (BEAKER) (test dzkn=383) 22.4 seconds 11.7-14.7 INR (BEAKER) (test dmfg=136) 2.0 <=5.9 RECOMMENDED COUMADIN/WARFARIN INR THERAPY RANGESSTANDARD DOSE: 2.0 - 3.0 Includes: PROPHYLAXIS forvenous thrombosis, systemic embolization; TREATMENT for venous thrombosis and/or pulmonary embolus.HIGH RISK: Target INR is 2.5-3.5 for patients with mechanical heart valves.[id number] 17:54:00 Test Item Value Reference Range Comments SODIUM (BEAKER) (test ncim=828) 129 meq/L 136-145 POTASSIUM (BEAKER) (test qulk=804) 5.5 meq/L 3.5-5.1 CHLORIDE (BEAKER) (test rexh=175) 101 meq/L 98-107 CO2 (BEAKER) (test bdnc=127) 26 meq/L 22-29 Call [id number] with resultsCBC (HEMOGRAM ONLY)2018-01-04 07:16:00 Test Item Value Reference Range Comments WHITE BLOOD CELL COUNT (BEAKER) (test vuai=281) 2.9 K/ L 3.5-10.5 RED BLOOD CELL COUNT (BEAKER) (test zeud=057) 2.25 M/ L 4.63-6.08 HEMOGLOBIN (BEAKER) (test cqbx=682) 7.3 GM/DL 13.7-17.5 HEMATOCRIT (BEAKER) (test ffyt=577) 21.3 % 40.1-51.0 MEAN CORPUSCULAR VOLUME (BEAKER) (test vmyd=474) 94.7 fL 79.0-92.2 MEAN CORPUSCULAR HEMOGLOBIN (BEAKER) (test 32.4 pg 25.7-32.2 fmoq=908) MEAN CORPUSCULAR HEMOGLOBIN CONC (BEAKER) (test 34.3 GM/DL 32.3-36.5 zgwz=575) RED CELL DISTRIBUTION WIDTH (BEAKER) (test 17.6 % 11.6-14.4 rocp=841) PLATELET COUNT (BEAKER) (test uznt=490) 59 K/CU MM 150-450 MEAN PLATELET VOLUME (BEAKER) (test zqqo=861) 11.3 fL 9.4-12.4 NUCLEATED RED BLOOD CELLS (BEAKER) (test 0 /100 WBC 0-0 efmy=264) COMPREHENSIVE METABOLIC [id number] 06:49:00 Test Item Value Reference Range Comments TOTAL PROTEIN (BEAKER) 5.3 gm/dL 6.0-8.3 Specimen slightly (test jvkw=372) hemolyzed ALBUMIN (BEAKER) (test 3.3 g/dL 3.5-5.0 Specimen slightly fhyj=2549) hemolyzed ALKALINE PHOSPHATASE 81 U/L 40-150 (BEAKER) (test ized=203) BILIRUBIN TOTAL (BEAKER) 2.4 mg/dL 0.2-1.2 Specimen slightly (test zthr=861) hemolyzed SODIUM (BEAKER) (test 127 meq/L 136-145 uwbk=205) POTASSIUM (BEAKER) (test 5.7 meq/L 3.5-5.1 Specimen slightly tiwb=859) hemolyzed CHLORIDE (BEAKER) (test 100 meq/L 98-107 cohe=122) CO2 (BEAKER) (test 20 meq/L 22-29 vltk=931) BLOOD UREA NITROGEN 22 mg/dL 7-21 (BEAKER) (test plen=226) CREATININE (BEAKER) (test 1.14 mg/dL 0.57-1.25 Specimen slightly sbbt=027) hemolyzed GLUCOSE RANDOM (BEAKER) 96 mg/dL 70-105 (test ewad=006) CALCIUM (BEAKER) (test 8.9 mg/dL 8.4-10.2 bbhm=693) AST (SGOT) (BEAKER) (test 30 U/L 5-34 Specimen slightly twdc=956) hemolyzed ALT (SGPT) (BEAKER) (test 8 U/L 6-55 Specimen slightly sgbv=386) hemolyzed EGFR (BEAKER) (test 67 mL/min/1.73 sq m ESTIMATED GFR IS NOT zshh=8501) ACCURATE CREATININE CLEARANCE IN PREDICTING GLOMERULAR FILTRATION RATE. ESTIMATED GFR IS NOT APPLICABLE FOR DIALYSIS PATIENTS. Specimen slightly ictericPROTHROMBIN [id number] 06:15:00 Test Item Value Reference Range Comments PROTIME (BEAKER) (test kkfa=845) 22.7 seconds 11.7-14.7 INR (BEAKER) (test qsdm=593) 2.0 <=5.9 RECOMMENDED COUMADIN/WARFARIN INR THERAPY RANGESSTANDARD DOSE: 2.0 - 3.0 Includes: PROPHYLAXIS forvenous thrombosis, systemic embolization; TREATMENT for venous thrombosis and/or pulmonary embolus.HIGH RISK: Target INR is 2.5-3.5 for patients with mechanical heart valves.VITAMIN B12 AND [id number] 16:39 :00 Test Item Value Reference Range Comments VITAMIN B12 (BEAKER) (test zrxz=679) 829 pg/mL 213-816 FOLATE (BEAKER) (test iukt=757) 18.9 ng/mL >=7.0 CALCIUM, [id number] 07:14:00 Test Item Value Reference Range Comments CALCIUM IONIZED (BEAKER) (test jebe=819) 1.08 mmol/L 1.12-1.27 PH, BLOOD (BEAKER) (test mzfy=0425) 7.41 COMPREHENSIVE METABOLIC [id number] 07:00:00 Test Item Value Reference Range Comments TOTAL PROTEIN (BEAKER) 5.0 gm/dL 6.0-8.3 (test kpqq=236) ALBUMIN (BEAKER) (test 3.1 g/dL 3.5-5.0 wkcz=5492) ALKALINE PHOSPHATASE 65 U/L 40-150 (BEAKER) (test fwgw=174) BILIRUBIN TOTAL (BEAKER) 2.5 mg/dL 0.2-1.2 (test nvzq=892) SODIUM (BEAKER) (test 127 meq/L 136-145 ihrg=073) POTASSIUM (BEAKER) (test 4.7 meq/L 3.5-5.1 cbih=576) CHLORIDE (BEAKER) (test 99 meq/L 98-107 tnpz=058) CO2 (BEAKER) (test 23 meq/L 22-29 yhic=516) BLOOD UREA NITROGEN 21 mg/dL 7-21 (BEAKER) (test leqf=074) CREATININE (BEAKER) (test 1.13 mg/dL 0.57-1.25 dqvt=702) GLUCOSE RANDOM (BEAKER) 92 mg/dL 70-105 (test dzax=333) CALCIUM (BEAKER) (test 8.9 mg/dL 8.4-10.2 rhto=735) AST (SGOT) (BEAKER) (test 18 U/L 5-34 zfvz=368) ALT (SGPT) (BEAKER) (test 8 U/L 6-55 pwiy=716) EGFR (BEAKER) (test 68 mL/min/1.73 sq m ESTIMATED GFR IS NOT oumi=7420) ACCURATE CREATININE CLEARANCE IN PREDICTING GLOMERULAR FILTRATION RATE. ESTIMATED GFR IS NOT APPLICABLE FOR DIALYSIS PATIENTS. [id number] 06:37:00 Test Item Value Reference Range Comments PHOSPHORUS (BEAKER) (test onqq=840) 3.2 mg/dL 2.3-4.7 [id number] 06:37:00 Test Item Value Reference Range Comments MAGNESIUM (BEAKER) (test adkx=783) 1.9 mg/dL 1.6-2.6 CBC (HEMOGRAM ONLY)2018-01-03 06:25:00 Test Item Value Reference Range Comments WHITE BLOOD CELL COUNT (BEAKER) (test ktnr=839) 3.1 K/ L 3.5-10.5 RED BLOOD CELL COUNT (BEAKER) (test dtnw=850) 2.31 M/ L 4.63-6.08 HEMOGLOBIN (BEAKER) (test ghsv=769) 7.4 GM/DL 13.7-17.5 HEMATOCRIT (BEAKER) (test qtsg=458) 21.6 % 40.1-51.0 MEAN CORPUSCULAR VOLUME (BEAKER) (test ahtb=600) 93.5 fL 79.0-92.2 MEAN CORPUSCULAR HEMOGLOBIN (BEAKER) (test 32.0 pg 25.7-32.2 dlcz=685) MEAN CORPUSCULAR HEMOGLOBIN CONC (BEAKER) (test 34.3 GM/DL 32.3-36.5 drxg=011) RED CELL DISTRIBUTION WIDTH (BEAKER) (test 17.4 % 11.6-14.4 giym=136) PLATELET COUNT (BEAKER) (test opku=135) 50 K/CU MM 150-450 MEAN PLATELET VOLUME (BEAKER) (test vymq=721) 10.5 fL 9.4-12.4 NUCLEATED RED BLOOD CELLS (BEAKER) (test 0 /100 WBC 0-0 rhyl=366) PROTHROMBIN [id number] 06:09:00 Test Item Value Reference Range Comments PROTIME (BEAKER) (test prpf=937) 22.2 seconds 11.7-14.7 INR (BEAKER) (test nwel=058) 2.0 <=5.9 RECOMMENDED COUMADIN/WARFARIN INR THERAPY RANGESSTANDARD DOSE: 2.0 - 3.0 Includes: PROPHYLAXIS forvenous thrombosis, systemic embolization; TREATMENT for venous thrombosis and/or pulmonary embolus.HIGH RISK: Target INR is 2.5-3.5 for patients with mechanical heart valves.[id number] 07:54:00 Test Item Value Reference Range Comments PHOSPHORUS (BEAKER) (test ofmo=170) 3.2 mg/dL 2.3-4.7 [id number] 07:54:00 Test Item Value Reference Range Comments MAGNESIUM (BEAKER) (test kmxn=673) 1.4 mg/dL 1.6-2.6 COMPREHENSIVE METABOLIC [id number] 07:54:00 Test Item Value Reference Range Comments TOTAL PROTEIN (BEAKER) 5.3 gm/dL 6.0-8.3 (test sqbf=081) ALBUMIN (BEAKER) (test 3.4 g/dL 3.5-5.0 jmgi=2143) ALKALINE PHOSPHATASE 55 U/L 40-150 (BEAKER) (test dxym=371) BILIRUBIN TOTAL (BEAKER) 3.9 mg/dL 0.2-1.2 (test yjlv=389) SODIUM (BEAKER) (test 131 meq/L 136-145 iznn=811) POTASSIUM (BEAKER) (test 4.3 meq/L 3.5-5.1 oxzl=938) CHLORIDE (BEAKER) (test 101 meq/L 98-107 flci=933) CO2 (BEAKER) (test 23 meq/L 22-29 noca=997) BLOOD UREA NITROGEN 19 mg/dL 7-21 (BEAKER) (test pknf=560) CREATININE (BEAKER) (test 0.97 mg/dL 0.57-1.25 wuob=342) GLUCOSE RANDOM (BEAKER) 80 mg/dL 70-105 (test equb=377) CALCIUM (BEAKER) (test 9.4 mg/dL 8.4-10.2 xojz=883) AST (SGOT) (BEAKER) (test 17 U/L 5-34 zhyp=560) ALT (SGPT) (BEAKER) (test 8 U/L 6-55 hjiq=361) EGFR (BEAKER) (test 81 mL/min/1.73 sq m ESTIMATED GFR IS NOT btgk=5194) ACCURATE CREATININE CLEARANCE IN PREDICTING GLOMERULAR FILTRATION RATE. ESTIMATED GFR IS NOT APPLICABLE FOR DIALYSIS PATIENTS. Specimen slightly ictericCBC W/PLT COUNT & AUTO [id number] 07:14 :00 Test Item Value Reference Range Comments WHITE BLOOD CELL COUNT (BEAKER) (test laxv=992) 2.9 K/ L 3.5-10.5 RED BLOOD CELL COUNT (BEAKER) (test yipg=570) 2.55 M/ L 4.63-6.08 HEMOGLOBIN (BEAKER) (test nefx=361) 8.1 GM/DL 13.7-17.5 HEMATOCRIT (BEAKER) (test jjgu=808) 23.7 % 40.1-51.0 MEAN CORPUSCULAR VOLUME (BEAKER) (test xnrf=265) 92.9 fL 79.0-92.2 MEAN CORPUSCULAR HEMOGLOBIN (BEAKER) (test 31.8 pg 25.7-32.2 oiqa=004) MEAN CORPUSCULAR HEMOGLOBIN CONC (BEAKER) (test 34.2 GM/DL 32.3-36.5 svcs=262) RED CELL DISTRIBUTION WIDTH (BEAKER) (test 17.5 % 11.6-14.4 vvyh=719) PLATELET COUNT (BEAKER) (test htok=774) 50 K/CU MM 150-450 MEAN PLATELET VOLUME (BEAKER) (test xhak=636) 9.5 fL 9.4-12.4 NUCLEATED RED BLOOD CELLS (BEAKER) (test 0 /100 WBC 0-0 nrfx=887) NEUTROPHILS RELATIVE PERCENT (BEAKER) (test 57 % dezi=469) LYMPHOCYTES RELATIVE PERCENT (BEAKER) (test 17 % vjml=911) MONOCYTES RELATIVE PERCENT (BEAKER) (test 18 % dufm=568) EOSINOPHILS RELATIVE PERCENT (BEAKER) (test 7 % dsvu=651) BASOPHILS RELATIVE PERCENT (BEAKER) (test 0 % bmnu=653) NEUTROPHILS ABSOLUTE COUNT (BEAKER) (test 1.65 K/ L 1.78-5.38 nrih=505) LYMPHOCYTES ABSOLUTE COUNT (BEAKER) (test 0.49 K/ L 1.32-3.57 avoz=438) MONOCYTES ABSOLUTE COUNT (BEAKER) (test xpel=472) 0.51 K/ L 0.30-0.82 EOSINOPHILS ABSOLUTE COUNT (BEAKER) (test 0.20 K/ L 0.04-0.54 vejn=406) BASOPHILS ABSOLUTE COUNT (BEAKER) (test ikih=227) 0.01 K/ L 0.01-0.08 IMMATURE GRANULOCYTES-RELATIVE PERCENT (BEAKER) 1 % 0-1 (test jzey=1218) (MANUAL DIFFERENTIAL)2018-01-02 07:14:00 Test Item Value Reference Range Comments TOTAL COUNTED (BEAKER) (test xdgw=1587) CALCIUM, [id number] 07:04:00 Test Item Value Reference Range Comments CALCIUM IONIZED (BEAKER) (test elxf=481) 1.07 mmol/L 1.12-1.27 PH, BLOOD (BEAKER) (test vxud=5892) 7.49 PROTHROMBIN [id number] 06:42:00 Test Item Value Reference Range Comments PROTIME (BEAKER) (test uidc=595) 24.6 seconds 11.7-14.7 INR (BEAKER) (test hdpz=167) 2.2 <=5.9 RECOMMENDED COUMADIN/WARFARIN INR THERAPY RANGESSTANDARD DOSE: 2.0 - 3.0 Includes: PROPHYLAXIS forvenous thrombosis, systemic embolization; TREATMENT for venous thrombosis and/or pulmonary embolus.HIGH RISK: Target INR is 2.5-3.5 for patients with mechanical heart valves.CYTOMEGALOVIRUS ANTIBODY, [id number] 14:58:00 Test Item Value Reference Range Comments CYTOMEGALOVIRUS IGG ANTIBODY (BEAKER) (test Positive jqay=018) CYTOMEGALOVIRUS ANTIBODY, [id number] 14:58:00 Test Item Value Reference Range Comments CYTOMEGALOVIRUS IGM ANTIBODY (BEAKER) (test Negative vmrq=931) EBV-VCA ANTIBODY, [id number] 14:58:00 Test Item Value Reference Range Comments MARCELLUS-DAVIS VCA IGG (BEAKER) (test scym=998) Positive EBV-VCA ANTIBODY, [id number] 14:58:00 Test Item Value Reference Range Comments MARCELLUS-DAVIS VCA IGM (BEAKER) (test ymhz=370) Negative BODY FLUID CELL COUNT WITH [id number] 14:27:00 Test Item Value Reference Range Comments APPEARANCE FLUID (BEAKER) (test twgy=920) Slightly Hazy Clear COLOR FLUID (BEAKER) (test xqop=347) Yellow Colorless, Straw RBC FLUID (BEAKER) (test fhmb=814) 378 /cu mm <=1 ADJUSTED WBC FLUID (BEAKER) (test gozi=1789) 84 /cu mm <=5 LINING CELLS (BEAKER) (test fmai=4728) 17 /cu mm <=1 NEUTROPHILS FLUID (BEAKER) (test cruf=6512) 1 % LYMPHS FLUID (BEAKER) (test ofly=754) 14 % MONO/MACROPHAGE FLUID (BEAKER) (test 85 % lvzb=775) EOSINOPHILS FLUID (BEAKER) (test jnfw=884) 0 % BASO FLUID (BEAKER) (test eslj=849) 0 % CONTAINER BODY FLUID (BEAKER) (test EDTA Tube qslz=0032) U/S, [id number] 11:17:00Reason for exam:->ascitesFINAL REPORT Ultrasound guided paracentesis, 01/01/2018. Clinical History:Ascites. Sedation: None. Barge Master: Paul Butler MD Unarmed Security Officer: None. Estimated Blood Loss: < 1 cc. [...] was achieved with 1% lidocaine, a 5 Guyanese one-step catheter was advanced into the peritoneal cavity under ultrasound guidance. After completion of drainage, the catheter was removed. There was no evidence ofcomplication. Patient Disposition: The patient was transferred to the inpatient unit from the ultrasound department after the paracentesis, in good condition. Impression:Successful ultrasound guided paracentesis. Signed: Paul Butler [facility] Verified Date/Time: 01/01/2018 11:17:26 Reading Location: [address] Ultrasound Reading Room CBC W/PLT COUNT & AUTO [id number] 08:55:00 Test Item Value Reference Range Comments WHITE BLOOD CELL COUNT (BEAKER) (test eljq=830) 2.6 K/ L 3.5-10.5 RED BLOOD CELL COUNT (BEAKER) (test qwow=544) 2.17 M/ L 4.63-6.08 HEMOGLOBIN (BEAKER) (test hzcv=608) 6.9 GM/DL 13.7-17.5 HEMATOCRIT (BEAKER) (test hbqo=441) 20.6 % 40.1-51.0 MEAN CORPUSCULAR VOLUME (BEAKER) (test kmkv=004) 94.9 fL 79.0-92.2 MEAN CORPUSCULAR HEMOGLOBIN (BEAKER) (test 31.8 pg 25.7-32.2 pkay=734) MEAN CORPUSCULAR HEMOGLOBIN CONC (BEAKER) (test 33.5 GM/DL 32.3-36.5 kmrm=230) RED CELL DISTRIBUTION WIDTH (BEAKER) (test 17.0 % 11.6-14.4 rhzi=383) PLATELET COUNT (BEAKER) (test eyoy=388) 43 K/CU MM 150-450 MEAN PLATELET VOLUME (BEAKER) (test mzdb=260) 9.3 fL 9.4-12.4 NUCLEATED RED BLOOD CELLS (BEAKER) (test 0 /100 WBC 0-0 wtmt=470) NEUTROPHILS RELATIVE PERCENT (BEAKER) (test 62 % ypez=320) LYMPHOCYTES RELATIVE PERCENT (BEAKER) (test 13 % wvov=442) MONOCYTES RELATIVE PERCENT (BEAKER) (test 18 % glkf=967) EOSINOPHILS RELATIVE PERCENT (BEAKER) (test 6 % wmcj=592) BASOPHILS RELATIVE PERCENT (BEAKER) (test 0 % yksp=568) NEUTROPHILS ABSOLUTE COUNT (BEAKER) (test 1.58 K/ L 1.78-5.38 troj=878) LYMPHOCYTES ABSOLUTE COUNT (BEAKER) (test 0.33 K/ L 1.32-3.57 siap=873) MONOCYTES ABSOLUTE COUNT (BEAKER) (test azuk=231) 0.46 K/ L 0.30-0.82 EOSINOPHILS ABSOLUTE COUNT (BEAKER) (test 0.15 K/ L 0.04-0.54 yvfv=133) BASOPHILS ABSOLUTE COUNT (BEAKER) (test uqtv=314) 0.01 K/ L 0.01-0.08 IMMATURE GRANULOCYTES-RELATIVE PERCENT (BEAKER) 1 % 0-1 (test sugq=3798) (MANUAL DIFFERENTIAL)2018-01-01 08:55:00 Test Item Value Reference Range Comments TOTAL COUNTED (BEAKER) (test tpqu=4798) CALCIUM, [id number] 07:43:00 Test Item Value Reference Range Comments CALCIUM IONIZED (BEAKER) (test ldus=240) 1.14 mmol/L 1.12-1.27 PH, BLOOD (BEAKER) (test qehc=5201) 7.52 [id number] 06:11:00 Test Item Value Reference Range Comments PHOSPHORUS (BEAKER) (test ssgs=875) 2.5 mg/dL 2.3-4.7 [id number] 06:11:00 Test Item Value Reference Range Comments MAGNESIUM (BEAKER) (test zsrc=320) 1.7 mg/dL 1.6-2.6 COMPREHENSIVE METABOLIC [id number] 06:11:00 Test Item Value Reference Range Comments TOTAL PROTEIN (BEAKER) 5.6 gm/dL 6.0-8.3 (test wztm=095) ALBUMIN (BEAKER) (test 3.6 g/dL 3.5-5.0 uajm=4511) ALKALINE PHOSPHATASE 68 U/L 40-150 (BEAKER) (test gdcc=462) BILIRUBIN TOTAL (BEAKER) 2.7 mg/dL 0.2-1.2 (test qats=389) SODIUM (BEAKER) (test 132 meq/L 136-145 dscl=854) POTASSIUM (BEAKER) (test 4.9 meq/L 3.5-5.1 kywd=006) CHLORIDE (BEAKER) (test 102 meq/L 98-107 pabq=990) CO2 (BEAKER) (test 24 meq/L 22-29 dgjn=487) BLOOD UREA NITROGEN 20 mg/dL 7-21 (BEAKER) (test ieco=563) CREATININE (BEAKER) (test 1.17 mg/dL 0.57-1.25 vrqz=568) GLUCOSE RANDOM (BEAKER) 92 mg/dL 70-105 (test eexe=808) CALCIUM (BEAKER) (test 9.7 mg/dL 8.4-10.2 dotn=241) AST (SGOT) (BEAKER) (test 16 U/L 5-34 brkz=231) ALT (SGPT) (BEAKER) (test 8 U/L 6-55 yxud=710) EGFR (BEAKER) (test 65 mL/min/1.73 sq m ESTIMATED GFR IS NOT aenv=2108) ACCURATE CREATININE CLEARANCE IN PREDICTING GLOMERULAR FILTRATION RATE. ESTIMATED GFR IS NOT APPLICABLE FOR DIALYSIS PATIENTS. Specimen slightly ictericPROTHROMBIN [id number] 06:00:00 Test Item Value Reference Range Comments PROTIME (TUNG) (test bdqs=847) 24.0 seconds 11.7-14.7 INR (TUNG) (test bndq=813) 2.2 <=5.9 RECOMMENDED COUMADIN/WARFARIN INR THERAPY RANGESSTANDARD DOSE: 2.0 - 3.0 Includes: PROPHYLAXIS forvenous thrombosis, systemic embolization; TREATMENT for venous thrombosis and/or pulmonary embolus.HIGH RISK: Target INR is 2.5-3.5 for patients with mechanical heart valves.CT, CHEST, WITHOUT [id number] 19:24:00FINAL REPORT HISTORY: Lung nodule, >=1cm COMPARISON [...] MDReport Verified Date/Time: 12/31/2017 19:24:12 Reading Location: [facility] [id number] Consult Reading Room 07: 24 PMPERIPHERAL BLOOD SMEAR - HOLD [id number] 19:18:00 Test Item Value Reference Range Comments PERIPHERAL SMEAR SAVE (BEAKER) prepared and saved smear, (test faof=3193) 12/31/17 RETICULOCYTE [id number] 19:14:00 Test Item Value Reference Range Comments RETICULOCYTE COUNT PCT (BEAKER) (test tazr=140) 3.5 % 0.5-1.8 LACTATE DEHYDROGENASE (LDH)2017-12-31 17:47:00 Test Item Value Reference Range Comments LACTATE DEHYDROGENASE (BEAKER) (test msrx=958) 112 U/L 125-220 BLOOD GAS, [id number] 17:27:00 Test Item Value Reference Range Comments PH ARTERIAL (BEAKER) (test vclk=100) 7.45 7.35-7.45 PCO2 ARTERIAL (BEAKER) (test ifze=739) 36 mmHg 35-45 PO2 ARTERIAL (BEAKER) (test lwnt=280) 76 mmHg 80-90 O2 SATURATION ARTERIAL (BEAKER) (test mmds=510) 96.1 % 96.0-97.0 HCO3 ARTERIAL (BEAKER) (test fyib=845) 24 mmol/L 21-29 BASE EXCESS ARTERIAL (BEAKER) (test gewo=657) 0.2 mmol/L -2.0-3.0 PATIENT TEMPERATURE (BEAKER) (test dxlx=9809) 36.4 C FIO2 (BEAKER) (test jjtq=6976) 21.0 % MYOCARD IMAGING, MULTI, PHARM, [id number] 15:12:00FINAL REPORT PROCEDURE: Rest/Stress MYOCARDIAL PERFUSION SPECT with regadenoson\\XA9\\ CPT CODE: 05000 INDICATION: Liver transplant evaluation HISTORY: Cardiac risk [...] Normal extracardiac tracer distribution. 6. No previous [facility] study for comparison. NONINVASIVE RISK STRATIFICATION: The above findings are considered low risk (<1% annual mortality rate) based on the following criterion:- Normal orsmall myocardial perfusion defect at rest or with stress(JACC. 2012;59(9):857-81.) Signed: Quinten Napier Verified Date/Time: 12/31/2017 15:12:03 Reading Location: [address] Reading Room BILIRUBIN, [id number] 14:10:00 Test Item Value Reference Range Comments BILIRUBIN DIRECT (BEAKER) (test lepz=770) 1.6 mg/dL 0.1-0.5 HEMOGLOBIN AND [id number] 13:22:00 Test Item Value Reference Range Comments HEMOGLOBIN (BEAKER) (test fijx=280) 7.3 GM/DL 13.7-17.5 HEMATOCRIT (BEAKER) (test aojz=918) 21.9 % 40.1-51.0 CBC W/PLT COUNT & AUTO [id number] 11:06:00 Test Item Value Reference Range Comments WHITE BLOOD CELL COUNT (BEAKER) (test oeei=033) 2.2 K/ L 3.5-10.5 RED BLOOD CELL COUNT (BEAKER) (test ejvt=278) 2.07 M/ L 4.63-6.08 HEMOGLOBIN (BEAKER) (test rslh=375) 6.8 GM/DL 13.7-17.5 HEMATOCRIT (BEAKER) (test jfzz=400) 19.6 % 40.1-51.0 MEAN CORPUSCULAR VOLUME (BEAKER) (test dirb=573) 94.7 fL 79.0-92.2 MEAN CORPUSCULAR HEMOGLOBIN (BEAKER) (test 32.9 pg 25.7-32.2 kqil=757) MEAN CORPUSCULAR HEMOGLOBIN CONC (BEAKER) (test 34.7 GM/DL 32.3-36.5 zmia=965) RED CELL DISTRIBUTION WIDTH (BEAKER) (test 16.9 % 11.6-14.4 wesq=750) PLATELET COUNT (BEAKER) (test pheg=072) 47 K/CU MM 150-450 MEAN PLATELET VOLUME (BEAKER) (test udow=156) 9.7 fL 9.4-12.4 NUCLEATED RED BLOOD CELLS (BEAKER) (test 0 /100 WBC 0-0 jgfl=619) NEUTROPHILS RELATIVE PERCENT (BEAKER) (test 54 % rjnk=217) LYMPHOCYTES RELATIVE PERCENT (BEAKER) (test 17 % idja=718) MONOCYTES RELATIVE PERCENT (BEAKER) (test 21 % veoi=423) EOSINOPHILS RELATIVE PERCENT (BEAKER) (test 8 % haha=418) BASOPHILS RELATIVE PERCENT (BEAKER) (test 1 % ntxo=514) NEUTROPHILS ABSOLUTE COUNT (BEAKER) (test 1.17 K/ L 1.78-5.38 jgbx=793) LYMPHOCYTES ABSOLUTE COUNT (BEAKER) (test 0.36 K/ L 1.32-3.57 cqzz=002) MONOCYTES ABSOLUTE COUNT (BEAKER) (test oqbk=250) 0.45 K/ L 0.30-0.82 EOSINOPHILS ABSOLUTE COUNT (BEAKER) (test 0.17 K/ L 0.04-0.54 eutf=221) BASOPHILS ABSOLUTE COUNT (BEAKER) (test iwnp=076) 0.01 K/ L 0.01-0.08 IMMATURE GRANULOCYTES-RELATIVE PERCENT (BEAKER) 1 % 0-1 (test gmjs=1060) (MANUAL DIFFERENTIAL)2017-12-31 11:06:00 Test Item Value Reference Range Comments TOTAL COUNTED (BEAKER) (test lwol=3727) [id number] 08:37:00 Test Item Value Reference Range Comments PROTIME (BEAKER) (test fril=395) 24.0 seconds 11.7-14.7 INR (BEAKER) (test lvbf=360) 2.2 <=5.9 PARTIAL THROMBOPLASTIN TIME (BEAKER) (test 55.2 seconds 22.5-36.0 tqje=321) RECOMMENDED COUMADIN/WARFARIN INR THERAPY RANGESSTANDARD DOSE: 2.0 - 3.0 Includes: PROPHYLAXIS forvenous thrombosis, systemic embolization; TREATMENT for venous thrombosis and/or pulmonary embolus.HIGH RISK: Target INR is 2.5-3.5 for patients with mechanical heart valves.COMPREHENSIVE METABOLIC [id number] 06:37:00 Test Item Value Reference Range Comments TOTAL PROTEIN (BEAKER) 5.7 gm/dL 6.0-8.3 (test mnax=127) ALBUMIN (BEAKER) (test 3.7 g/dL 3.5-5.0 hqxo=9285) ALKALINE PHOSPHATASE 70 U/L 40-150 (BEAKER) (test xwbm=500) BILIRUBIN TOTAL (BEAKER) 2.6 mg/dL 0.2-1.2 (test tjkl=064) SODIUM (BEAKER) (test 130 meq/L 136-145 gmzy=816) POTASSIUM (BEAKER) (test 5.2 meq/L 3.5-5.1 dlce=956) CHLORIDE (BEAKER) (test 100 meq/L 98-107 gdxi=966) CO2 (BEAKER) (test 25 meq/L 22-29 wkoh=573) BLOOD UREA NITROGEN 20 mg/dL 7-21 (BEAKER) (test itbe=021) CREATININE (BEAKER) (test 1.08 mg/dL 0.57-1.25 wqgg=720) GLUCOSE RANDOM (BEAKER) 91 mg/dL 70-105 (test ufuo=104) CALCIUM (BEAKER) (test 9.6 mg/dL 8.4-10.2 rhxp=651) AST (SGOT) (BEAKER) (test 16 U/L 5-34 dfjm=378) ALT (SGPT) (BEAKER) (test 6 U/L 6-55 zwwo=380) EGFR (BEAKER) (test 72 mL/min/1.73 sq m ESTIMATED GFR IS NOT lngq=0058) ACCURATE CREATININE CLEARANCE IN PREDICTING GLOMERULAR FILTRATION RATE. ESTIMATED GFR IS NOT APPLICABLE FOR DIALYSIS PATIENTS. Specimen slightly [id number] 06:01:00 Test Item Value Reference Range Comments RPR SCREEN (BEAKER) (test sbco=202) Nonreactive Nonreactive CRYPTOCOCCAL [id number] 05:59:00 Test Item Value Reference Range Comments CRYPTOCOCCAL ANTIGEN, SERUM (BEAKER) (test Negative Negative, Interference jlnv=3369) RAD, MANDIBLE, MIN 4 [id number] 01:37:00Reason for exam:->liver transplant evalShould this be [...] Barcenas Verified Date/Time: 12/31/2017 01:37:57 Reading Location: [address] Reading Room Electronically signed by: SLICK BARCENAS M.D. on 04/2018 01:37 AMRAD, CHEST, 2 [id number] 23:32:00Reason for exam:-> liver transplant evalShould this [...] Barcenas Verified Date/Time: 12/30/2017 23:32:31 Reading Location: [address] Reading Room HEMOGLOBIN [id number] 22:54:00 Test Item Value Reference Range Comments HEMOGLOBIN A1C (BEAKER) (test aqwu=156) 4.1 % 4.3-6.1 HEPATITIS B SURFACE [id number] 16:31:00 Test Item Value Reference Range Comments HEPATITIS B SURFACE ANTIBODY (BEAKER) (test < mIU/mL <8.0 eski=268) HEPATITIS B SURFACE [id number] 16:29:00 Test Item Value Reference Range Comments HEPATITIS B SURFACE ANTIGEN (2) (BEAKER) (test Nonreactive Nonreactive hsyo=9929) HEPATITIS B CORE ANTIBODY, [id number] 16:29:00 Test Item Value Reference Range Comments HEPATITIS B CORE IGM ANTIBODY (BEAKER) (test Nonreactive Nonreactive ujen=058) HEPATITIS A ANTIBODY, [id number] 16:29:00 Test Item Value Reference Range Comments HEPATITIS A IGM ANTIBODY (BEAKER) (test Nonreactive Nonreactive ezyz=225) HEPATITIS B CORE ANTIBODY, [id number] 16:29:00 Test Item Value Reference Range Comments HEPATITIS B CORE TOTAL ANTIBODY (BEAKER) (test Nonreactive Nonreactive kjhe=046) [id number] 16:26:00 Test Item Value Reference Range Comments T4 TOTAL (BEAKER) (test awvs=475) 3.5 ug/dL 4.9-11.7 [id number] 16:26:00 Test Item Value Reference Range Comments T3 TOTAL (BEAKER) (test ianl=824) 42 ng/dL 48-159 [id number] 16:24:00 Test Item Value Reference Range Comments FERRITIN (BEAKER) (test mztf=029) 1460 ng/mL 5-275 VITAMIN D, [id number] 16:24:00 Test Item Value Reference Range Comments VITAMIN D 25-OH (BEAKER) (test mpgf=3659) 6.9 ng/mL 6.6-49.9 Effective 08/06/2017: Reference Range ChangeNew: 6.6-49.9 ng/mL Previous: 13.0 -47.8 ng/mLRecommended Vitamin D Target Range: 30.0-40.0 ng/[id number] 16: 24:00 Test Item Value Reference Range Comments THYROID STIMULATING HORMONE (BEAKER) (test 1.55 uIU/mL 0.35-4.94 dsqn=365) CARCINOEMBRYONIC ANTIGEN (CEA)2017-12-30 16:24:00 Test Item Value Reference Range Comments CARCINOEMBRYONIC ANTIGEN (BEAKER) (test jmvf=131) 3.0 ng/mL 0.0-5.0 [id number] 16:23:00 Test Item Value Reference Range Comments PROSTATE SPECIFIC ANTIGEN (BEAKER) (test pebt=025) 0.1 ng/mL 0.0-4.0 HIV-1 ANTIGEN WITH HIV-1/2 [id number] 16:23:00 Test Item Value Reference Range Comments HIV-1 ANTIGEN WITH HIV 1\\T\\2 ANTIBODY (2) Nonreactive Nonreactive (BEAKER) (test wrsk=1786) HEPATITIS C [id number] 16:23:00 Test Item Value Reference Range Comments HEPATITIS C ANTIBODY (BEAKER) (test hgad=306) Nonreactive Nonreactive LIPID [id number] 16:06:00 Test Item Value Reference Range Comments TRIGLYCERIDES (BEAKER) (test zfqv=817) 38 mg/dL CHOLESTEROL (BEAKER) (test jfln=142) 51 mg/dL HDL CHOLESTEROL (BEAKER) (test zbhs=085) 10 mg/dL LDL CHOLESTEROL CALCULATED (BEAKER) (test spbx=324) 33 mg/dL Triglyceride Reference Range: Low Risk [...] Value Reference Range Comments IRON (BEAKER) (test lrbv=524) 90 ug/dL 40-160 TOTAL IRON BINDING CAPACITY (BEAKER) (test 85 ug/dL 250-450 gthx=254) IRON % SATURATION (2) (BEAKER) (test qcwv=4928) 106 % 20-55 [id number] 16:04:00 Test Item Value Reference Range Comments TRANSFERRIN (BEAKER) (test bnus=564) 65 mg/dL 174-382 Specimen slightly ictericURIC [id number] 16:02:00 Test Item Value Reference Range Comments URIC ACID (BEAKER) (test csid=111) 8.5 mg/dL 2.6-7.2 Specimen slightly [id number] 15:50:00 Test Item Value Reference Range Comments FIBRINOGEN LEVEL (BEAKER) (test miww=922) 161 mg/dl 225-434 BODY FLUID CULTURE + GRAM [id number] 11:45:00 Test Item Value Reference Range Comments CULTURE (BEAKER) (test lwfb=6324) No growth GRAM STAIN RESULT (BEAKER) (test No WBCs xpfu=0513) GRAM STAIN RESULT (BEAKER) (test No organisms seen afme=70565) CBC W/PLT COUNT & AUTO [id number] 08:05:00 Test Item Value Reference Range Comments WHITE BLOOD CELL COUNT (BEAKER) (test ytlr=438) 2.0 K/ L 3.5-10.5 RED BLOOD CELL COUNT (BEAKER) (test fmen=413) 2.20 M/ L 4.63-6.08 HEMOGLOBIN (BEAKER) (test kfpv=966) 7.1 GM/DL 13.7-17.5 HEMATOCRIT (BEAKER) (test nauk=139) 20.8 % 40.1-51.0 MEAN CORPUSCULAR VOLUME (BEAKER) (test ggnr=573) 94.5 fL 79.0-92.2 MEAN CORPUSCULAR HEMOGLOBIN (BEAKER) (test 32.3 pg 25.7-32.2 xzmh=561) MEAN CORPUSCULAR HEMOGLOBIN CONC (BEAKER) (test 34.1 GM/DL 32.3-36.5 qutp=637) RED CELL DISTRIBUTION WIDTH (BEAKER) (test 17.0 % 11.6-14.4 nctp=446) PLATELET COUNT (BEAKER) (test gqhm=465) 52 K/CU MM 150-450 MEAN PLATELET VOLUME (BEAKER) (test iwtz=946) 10.7 fL 9.4-12.4 NUCLEATED RED BLOOD CELLS (BEAKER) (test 0 /100 WBC 0-0 zfge=302) NEUTROPHILS RELATIVE PERCENT (BEAKER) (test 55 % assa=753) LYMPHOCYTES RELATIVE PERCENT (BEAKER) (test 16 % kclz=948) MONOCYTES RELATIVE PERCENT (BEAKER) (test 20 % uesi=855) EOSINOPHILS RELATIVE PERCENT (BEAKER) (test 8 % nffi=709) BASOPHILS RELATIVE PERCENT (BEAKER) (test 1 % gaka=789) NEUTROPHILS ABSOLUTE COUNT (BEAKER) (test 1.10 K/ L 1.78-5.38 toai=801) LYMPHOCYTES ABSOLUTE COUNT (BEAKER) (test 0.32 K/ L 1.32-3.57 slub=874) MONOCYTES ABSOLUTE COUNT (BEAKER) (test mgjp=668) 0.40 K/ L 0.30-0.82 EOSINOPHILS ABSOLUTE COUNT (BEAKER) (test 0.16 K/ L 0.04-0.54 rlid=313) BASOPHILS ABSOLUTE COUNT (BEAKER) (test rwfi=415) 0.01 K/ L 0.01-0.08 IMMATURE GRANULOCYTES-RELATIVE PERCENT (BEAKER) 1 % 0-1 (test hjwf=0449) (MANUAL DIFFERENTIAL)2017-12-30 08:05:00 Test Item Value Reference Range Comments TOTAL COUNTED (BEAKER) (test gtai=1122) URINALYSIS W/ [id number] 06:46:00 Test Item Value Reference Range Comments COLOR (BEAKER) (test nroe=923) Yellow CLARITY (BEAKER) (test axju=369) Clear SPECIFIC GRAVITY UA (BEAKER) (test gymn=777) 1.008 1.001-1.035 PH UA (BEAKER) (test onoa=195) 6.0 5.0-8.0 PROTEIN UA (BEAKER) (test jqdx=132) Negative Negative GLUCOSE UA (BEAKER) (test rvto=679) Negative Negative KETONES UA (BEAKER) (test oour=402) Negative Negative BILIRUBIN UA (BEAKER) (test scht=835) Negative Negative BLOOD UA (BEAKER) (test sles=514) Negative Negative NITRITE UA (BEAKER) (test lfca=540) Negative Negative LEUKOCYTE ESTERASE UA (BEAKER) (test yhnh=877) Negative Negative UROBILINOGEN UA (BEAKER) (test figv=835) 0.2 mg/dL 0.2-1.0 RBC UA (BEAKER) (test zoax=225) 0 /HPF WBC UA (BEAKER) (test mchr=359) 0 /HPF HYALINE CASTS (BEAKER) (test jxqp=480) 5 /LPF SOURCE(BEAKER) (test vpal=9648) Urine, Voided SODIUM, RANDOM [id number] 06:35:00 Test Item Value Reference Range Comments SODIUM URINE (BEAKER) (test tbhf=106) < meq/L Reference Range: No NormalsPROTEIN, RANDOM [id number] 06:35:00 Test Item Value Reference Range Comments PROTEIN, URINE (BEAKER) (test ohdf=4344) < mg/dL 0-14 [id number] 06:21:00 Test Item Value Reference Range Comments MAGNESIUM (BEAKER) (test 1.8 mg/dL 1.6-2.6 Specimen slightly hemolyzed iaqq=669) [id number] 06:21:00 Test Item Value Reference Range Comments PHOSPHORUS (BEAKER) (test 2.9 mg/dL 2.3-4.7 Specimen slightly hemolyzed oskl=909) COMPREHENSIVE METABOLIC [id number] 06:21:00 Test Item Value Reference Range Comments TOTAL PROTEIN (BEAKER) 5.6 gm/dL 6.0-8.3 Specimen slightly (test ajee=004) hemolyzed ALBUMIN (BEAKER) (test 3.5 g/dL 3.5-5.0 Specimen slightly pxiu=2754) hemolyzed ALKALINE PHOSPHATASE 75 U/L 40-150 (BEAKER) (test sayx=465) BILIRUBIN TOTAL (BEAKER) 3.0 mg/dL 0.2-1.2 Specimen slightly (test zbzo=610) hemolyzed SODIUM (BEAKER) (test 127 meq/L 136-145 qteu=046) POTASSIUM (BEAKER) (test 5.2 meq/L 3.5-5.1 Specimen slightly xqcg=305) hemolyzed CHLORIDE (BEAKER) (test 97 meq/L 98-107 cbht=808) CO2 (BEAKER) (test 24 meq/L 22-29 klze=519) BLOOD UREA NITROGEN 22 mg/dL 7-21 (BEAKER) (test qmpz=529) CREATININE (BEAKER) (test 1.11 mg/dL 0.57-1.25 Specimen slightly xuzy=461) hemolyzed GLUCOSE RANDOM (BEAKER) 94 mg/dL 70-105 (test qhdv=455) CALCIUM (BEAKER) (test 9.4 mg/dL 8.4-10.2 vvva=106) AST (SGOT) (BEAKER) (test 22 U/L 5-34 Specimen slightly tayq=911) hemolyzed ALT (SGPT) (BEAKER) (test 7 U/L 6-55 Specimen slightly ohnt=917) hemolyzed EGFR (BEAKER) (test 70 mL/min/1.73 sq m ESTIMATED GFR IS NOT azap=3432) ACCURATE CREATININE CLEARANCE IN PREDICTING GLOMERULAR FILTRATION RATE. ESTIMATED GFR IS NOT APPLICABLE FOR DIALYSIS PATIENTS. Specimen slightly ictericCREATININE, RANDOM [id number] 06:19:00 Test Item Value Reference Range Comments CREATININE URINE (BEAKER) (test ksou=274) 60.6 mg/dL Reference Range: No [id number] 13:43:00 Test Item Value Reference Range Comments ETHANOL (BEAKER) (test cjxm=261) < mg/dL <=10 COMPREHENSIVE METABOLIC [id number] 08:23:00 Test Item Value Reference Range Comments TOTAL PROTEIN (BEAKER) 5.5 gm/dL 6.0-8.3 (test ynil=937) ALBUMIN (BEAKER) (test 3.3 g/dL 3.5-5.0 vglm=9797) ALKALINE PHOSPHATASE 85 U/L 40-150 (BEAKER) (test bdjn=341) BILIRUBIN TOTAL (BEAKER) 3.8 mg/dL 0.2-1.2 (test pkxj=738) SODIUM (BEAKER) (test 125 meq/L 136-145 uzbx=234) POTASSIUM (BEAKER) (test 4.7 meq/L 3.5-5.1 gxqz=741) CHLORIDE (BEAKER) (test 96 meq/L 98-107 fvhb=185) CO2 (BEAKER) (test 21 meq/L 22-29 rltr=938) BLOOD UREA NITROGEN 22 mg/dL 7-21 (BEAKER) (test yvjp=164) CREATININE (BEAKER) (test 1.26 mg/dL 0.57-1.25 skhm=383) GLUCOSE RANDOM (BEAKER) 95 mg/dL 70-105 (test mmct=682) CALCIUM (BEAKER) (test 9.1 mg/dL 8.4-10.2 jtsu=385) AST (SGOT) (BEAKER) (test 20 U/L 5-34 zpaw=635) ALT (SGPT) (BEAKER) (test 8 U/L 6-55 mqxx=255) EGFR (BEAKER) (test 60 mL/min/1.73 sq m ESTIMATED GFR IS NOT chol=9571) ACCURATE CREATININE CLEARANCE IN PREDICTING GLOMERULAR FILTRATION RATE. ESTIMATED GFR IS NOT APPLICABLE FOR DIALYSIS PATIENTS. Specimen slightly ictericCBC W/PLT COUNT & AUTO [id number] 07:17 :00 Test Item Value Reference Range Comments WHITE BLOOD CELL COUNT (BEAKER) (test rsdq=333) 2.8 K/ L 3.5-10.5 RED BLOOD CELL COUNT (BEAKER) (test oqsi=834) 2.28 M/ L 4.63-6.08 HEMOGLOBIN (BEAKER) (test zgrz=469) 7.3 GM/DL 13.7-17.5 HEMATOCRIT (BEAKER) (test nwcp=606) 21.4 % 40.1-51.0 MEAN CORPUSCULAR VOLUME (BEAKER) (test fbor=610) 93.9 fL 79.0-92.2 MEAN CORPUSCULAR HEMOGLOBIN (BEAKER) (test 32.0 pg 25.7-32.2 eagp=178) MEAN CORPUSCULAR HEMOGLOBIN CONC (BEAKER) (test 34.1 GM/DL 32.3-36.5 ktcr=931) RED CELL DISTRIBUTION WIDTH (BEAKER) (test 16.9 % 11.6-14.4 xrlm=962) PLATELET COUNT (BEAKER) (test kiuf=134) 52 K/CU MM 150-450 MEAN PLATELET VOLUME (BEAKER) (test ptda=166) 9.8 fL 9.4-12.4 NUCLEATED RED BLOOD CELLS (BEAKER) (test 0 /100 WBC 0-0 ygbp=031) NEUTROPHILS RELATIVE PERCENT (BEAKER) (test 61 % mbmo=782) LYMPHOCYTES RELATIVE PERCENT (BEAKER) (test 14 % jnwe=691) MONOCYTES RELATIVE PERCENT (BEAKER) (test 18 % xggc=469) EOSINOPHILS RELATIVE PERCENT (BEAKER) (test 7 % puyr=351) BASOPHILS RELATIVE PERCENT (BEAKER) (test 0 % tyug=982) NEUTROPHILS ABSOLUTE COUNT (BEAKER) (test 1.69 K/ L 1.78-5.38 oqtj=399) LYMPHOCYTES ABSOLUTE COUNT (BEAKER) (test 0.38 K/ L 1.32-3.57 jfhi=095) MONOCYTES ABSOLUTE COUNT (BEAKER) (test pxwo=276) 0.51 K/ L 0.30-0.82 EOSINOPHILS ABSOLUTE COUNT (BEAKER) (test 0.18 K/ L 0.04-0.54 uvtv=193) BASOPHILS ABSOLUTE COUNT (BEAKER) (test ufof=463) 0.01 K/ L 0.01-0.08 IMMATURE GRANULOCYTES-RELATIVE PERCENT (BEAKER) 1 % 0-1 (test knbc=4429) CT, [id number] 22:20:00FINAL REPORT EXAM: CT of the abdomen [...] MDReport Verified Date/Time: 12/28/2017 22:20:52 Reading Location: [address] Transitional Reading Room CBC W/PLT COUNT & AUTO [id number] 18:06:00 Test Item Value Reference Range Comments WHITE BLOOD CELL COUNT (BEAKER) (test khkd=011) 2.9 K/ L 3.5-10.5 RED BLOOD CELL COUNT (BEAKER) (test hcjh=677) 2.03 M/ L 4.63-6.08 HEMOGLOBIN (BEAKER) (test uxdo=650) 6.5 GM/DL 13.7-17.5 HEMATOCRIT (BEAKER) (test ionq=161) 19.2 % 40.1-51.0 MEAN CORPUSCULAR VOLUME (BEAKER) (test mjot=767) 94.6 fL 79.0-92.2 MEAN CORPUSCULAR HEMOGLOBIN (BEAKER) (test 32.0 pg 25.7-32.2 vdub=860) MEAN CORPUSCULAR HEMOGLOBIN CONC (BEAKER) (test 33.9 GM/DL 32.3-36.5 sxtw=873) RED CELL DISTRIBUTION WIDTH (BEAKER) (test 17.6 % 11.6-14.4 nhxq=390) PLATELET COUNT (BEAKER) (test iwvj=737) 46 K/CU MM 150-450 MEAN PLATELET VOLUME (BEAKER) (test soxi=892) 9.3 fL 9.4-12.4 NUCLEATED RED BLOOD CELLS (BEAKER) (test 0 /100 WBC 0-0 oifo=370) NEUTROPHILS RELATIVE PERCENT (BEAKER) (test 66 % vfzd=884) LYMPHOCYTES RELATIVE PERCENT (BEAKER) (test 12 % waan=441) MONOCYTES RELATIVE PERCENT (BEAKER) (test 15 % wdsb=261) EOSINOPHILS RELATIVE PERCENT (BEAKER) (test 6 % hvjo=267) BASOPHILS RELATIVE PERCENT (BEAKER) (test 0 % zies=880) NEUTROPHILS ABSOLUTE COUNT (BEAKER) (test 1.92 K/ L 1.78-5.38 uqua=878) LYMPHOCYTES ABSOLUTE COUNT (BEAKER) (test 0.36 K/ L 1.32-3.57 dzay=405) MONOCYTES ABSOLUTE COUNT (BEAKER) (test qnbg=459) 0.44 K/ L 0.30-0.82 EOSINOPHILS ABSOLUTE COUNT (BEAKER) (test 0.16 K/ L 0.04-0.54 mkrd=479) BASOPHILS ABSOLUTE COUNT (BEAKER) (test baon=965) 0.01 K/ L 0.01-0.08 IMMATURE GRANULOCYTES-RELATIVE PERCENT (BEAKER) 1 % 0-1 (test vwdl=1428) CBC W/PLT COUNT & AUTO [id number] 12:30:00 Test Item Value Reference Range Comments WHITE BLOOD CELL COUNT (BEAKER) (test bkww=820) 3.1 K/ L 3.5-10.5 RED BLOOD CELL COUNT (BEAKER) (test iwxw=693) 2.09 M/ L 4.63-6.08 HEMOGLOBIN (BEAKER) (test pgvz=815) 6.8 GM/DL 13.7-17.5 HEMATOCRIT (BEAKER) (test rzuw=157) 19.9 % 40.1-51.0 MEAN CORPUSCULAR VOLUME (BEAKER) (test srfy=147) 95.2 fL 79.0-92.2 MEAN CORPUSCULAR HEMOGLOBIN (BEAKER) (test 32.5 pg 25.7-32.2 jhkp=221) MEAN CORPUSCULAR HEMOGLOBIN CONC (BEAKER) (test 34.2 GM/DL 32.3-36.5 mcom=621) RED CELL DISTRIBUTION WIDTH (BEAKER) (test 17.5 % 11.6-14.4 xshd=422) PLATELET COUNT (BEAKER) (test qaop=920) 65 K/CU MM 150-450 MEAN PLATELET VOLUME (BEAKER) (test hgbu=625) 10.6 fL 9.4-12.4 NUCLEATED RED BLOOD CELLS (BEAKER) (test 0 /100 WBC 0-0 yvts=157) NEUTROPHILS RELATIVE PERCENT (BEAKER) (test 60 % mfpc=077) LYMPHOCYTES RELATIVE PERCENT (BEAKER) (test 14 % dlbq=679) MONOCYTES RELATIVE PERCENT (BEAKER) (test 17 % deco=330) EOSINOPHILS RELATIVE PERCENT (BEAKER) (test 8 % sudk=780) BASOPHILS RELATIVE PERCENT (BEAKER) (test 0 % owfn=283) NEUTROPHILS ABSOLUTE COUNT (BEAKER) (test 1.85 K/ L 1.78-5.38 bpek=009) LYMPHOCYTES ABSOLUTE COUNT (BEAKER) (test 0.42 K/ L 1.32-3.57 zyyj=098) MONOCYTES ABSOLUTE COUNT (BEAKER) (test lbkj=967) 0.52 K/ L 0.30-0.82 EOSINOPHILS ABSOLUTE COUNT (BEAKER) (test 0.26 K/ L 0.04-0.54 iqso=725) BASOPHILS ABSOLUTE COUNT (BEAKER) (test qsig=758) 0.01 K/ L 0.01-0.08 IMMATURE GRANULOCYTES-RELATIVE PERCENT (BEAKER) 1 % 0-1 (test sibl=2061) U/S, [id number] 06:59:00Limit fluid removal to no more than 5 litersReason for exam:->ascites, concern for sbpShould thisbe performed at the bedside?->NoFINAL REPORT Paracentesis dated 2017 Procedure: Ultrasound-guided paracentesis. Preprocedure diagnosis: Ascites Postprocedure diagnosis: Ascites Conscious sedation: None. Radiologist: Lena Lynn M.D. Unarmed Security Officer: None Anesthesia: 1% Xylocaine mixed with sodium bicarbonate local anesthesia. Technique: After obtaining informed consent, ultrasound-guided paracentesis was performed under usual sterile technique. Using a 5 z[place] drainage catheter, puncture was made in the right lower quadrant abdomen. Approximately 5000 cc of serous fluid was removed. Patient tolerated the procedure well without complication. Complication: None Graft/ Implant: None Estimated Blood Loss: NoneImpression: Ultrasound-guided paracentesis. Signed: Lena Lynn Verified Date/Time: 12/28/2017 06:59 :16 Reading Location: [facility] B1 C013Y CT Body Reading Room ALPHA FETOPROTEIN (AFP), TUMOR [id number] 06:22:00 Test Item Value Reference Range Comments ALPHA-FETOPROTEIN (BEAKER) (test aasz=3819) 4.1 ng/mL <10.0 COMPREHENSIVE METABOLIC [id number] 06:00:00 Test Item Value Reference Range Comments TOTAL PROTEIN (BEAKER) 5.3 gm/dL 6.0-8.3 (test aynn=490) ALBUMIN (BEAKER) (test 2.7 g/dL 3.5-5.0 dvrj=0537) ALKALINE PHOSPHATASE 94 U/L 40-150 (BEAKER) (test hqfx=763) BILIRUBIN TOTAL (BEAKER) 3.7 mg/dL 0.2-1.2 (test iqio=867) SODIUM (BEAKER) (test 124 meq/L 136-145 rvck=321) POTASSIUM (BEAKER) (test 4.6 meq/L 3.5-5.1 wjwl=967) CHLORIDE (BEAKER) (test 96 meq/L 98-107 mzyh=939) CO2 (BEAKER) (test 22 meq/L 22-29 ytxv=042) BLOOD UREA NITROGEN 22 mg/dL 7-21 (BEAKER) (test eupr=101) CREATININE (BEAKER) (test 1.40 mg/dL 0.57-1.25 jgay=430) GLUCOSE RANDOM (BEAKER) 89 mg/dL 70-105 (test gqfm=098) CALCIUM (BEAKER) (test 8.8 mg/dL 8.4-10.2 uhio=378) AST (SGOT) (BEAKER) (test 25 U/L 5-34 wgjd=810) ALT (SGPT) (BEAKER) (test 10 U/L 6-55 szgc=822) EGFR (BEAKER) (test 53 mL/min/1.73 sq m ESTIMATED GFR IS NOT dxkq=4729) ACCURATE CREATININE CLEARANCE IN PREDICTING GLOMERULAR FILTRATION RATE. ESTIMATED GFR IS NOT APPLICABLE FOR DIALYSIS PATIENTS. Specimen slightly ictericCBC W/PLT COUNT & AUTO [id number] 05:50 :00 Test Item Value Reference Range Comments WHITE BLOOD CELL COUNT (BEAKER) (test jmjy=534) 3.1 K/ L 3.5-10.5 RED BLOOD CELL COUNT (BEAKER) (test cfjq=736) 2.00 M/ L 4.63-6.08 HEMOGLOBIN (BEAKER) (test nfjb=092) 6.4 GM/DL 13.7-17.5 HEMATOCRIT (BEAKER) (test uvpl=044) 18.9 % 40.1-51.0 MEAN CORPUSCULAR VOLUME (BEAKER) (test hcml=725) 94.5 fL 79.0-92.2 MEAN CORPUSCULAR HEMOGLOBIN (BEAKER) (test 32.0 pg 25.7-32.2 kfga=166) MEAN CORPUSCULAR HEMOGLOBIN CONC (BEAKER) (test 33.9 GM/DL 32.3-36.5 jcan=526) RED CELL DISTRIBUTION WIDTH (BEAKER) (test 17.9 % 11.6-14.4 tnrk=623) PLATELET COUNT (BEAKER) (test mzog=289) 59 K/CU MM 150-450 MEAN PLATELET VOLUME (BEAKER) (test naxb=043) 10.4 fL 9.4-12.4 NUCLEATED RED BLOOD CELLS (BEAKER) (test 0 /100 WBC 0-0 ueyr=990) NEUTROPHILS RELATIVE PERCENT (BEAKER) (test 63 % dbqf=703) LYMPHOCYTES RELATIVE PERCENT (BEAKER) (test 14 % sjzh=533) MONOCYTES RELATIVE PERCENT (BEAKER) (test 15 % hufm=714) EOSINOPHILS RELATIVE PERCENT (BEAKER) (test 7 % qwyn=452) BASOPHILS RELATIVE PERCENT (BEAKER) (test 0 % xvpy=602) NEUTROPHILS ABSOLUTE COUNT (BEAKER) (test 1.94 K/ L 1.78-5.38 qlju=553) LYMPHOCYTES ABSOLUTE COUNT (BEAKER) (test 0.44 K/ L 1.32-3.57 vqrm=608) MONOCYTES ABSOLUTE COUNT (BEAKER) (test kgsq=289) 0.47 K/ L 0.30-0.82 EOSINOPHILS ABSOLUTE COUNT (BEAKER) (test 0.21 K/ L 0.04-0.54 whyz=206) BASOPHILS ABSOLUTE COUNT (BEAKER) (test uzsy=053) 0.01 K/ L 0.01-0.08 IMMATURE GRANULOCYTES-RELATIVE PERCENT (BEAKER) 1 % 0-1 (test wxjr=5538) BODY FLUID CELL COUNT WITH [id number] 20:39:00 Test Item Value Reference Range Comments APPEARANCE FLUID (BEAKER) (test hspz=697) Slightly Hazy Clear COLOR FLUID (BEAKER) (test fewq=175) Yellow Colorless, Straw RBC FLUID (BEAKER) (test zrzh=327) 90 /cu mm <=1 ADJUSTED WBC FLUID (BEAKER) (test aowu=0474) 47 /cu mm <=5 LINING CELLS (BEAKER) (test hunl=1394) 3 /cu mm <=1 NEUTROPHILS FLUID (BEAKER) (test pafp=1487) 2 % LYMPHS FLUID (BEAKER) (test kkvi=587) 19 % MONO/MACROPHAGE FLUID (BEAKER) (test 79 % soam=490) EOSINOPHILS FLUID (BEAKER) (test yphp=094) 0 % BASO FLUID (BEAKER) (test dqcc=476) 0 % CONTAINER BODY FLUID (BEAKER) (test EDTA Tube mbkv=5733) ALBUMIN, BODY [id number] 20:14:00 Test Item Value Reference Range Comments ALBUMIN FLUID (BEAKER) (test nplq=093) 0.4 gm/dL Reference Range: No Normals Assay performance has not been validated for this type of specimen.BASIC METABOLIC [id number] 10:31:00 Test Item Value Reference Range Comments SODIUM (BEAKER) (test 125 meq/L 136-145 trcy=897) POTASSIUM (BEAKER) (test 4.5 meq/L 3.5-5.1 lnvv=919) CHLORIDE (BEAKER) (test 98 meq/L 98-107 ropc=989) CO2 (BEAKER) (test 20 meq/L 22-29 famb=917) BLOOD UREA NITROGEN 22 mg/dL 7-21 (BEAKER) (test mces=374) CREATININE (BEAKER) (test 1.45 mg/dL 0.57-1.25 nrnp=847) GLUCOSE RANDOM (BEAKER) 87 mg/dL 70-105 (test pupn=938) CALCIUM (BEAKER) (test 8.6 mg/dL 8.4-10.2 spyo=676) EGFR (BEAKER) (test 51 mL/min/1.73 sq m ESTIMATED GFR IS NOT ekzq=7630) ACCURATE CREATININE CLEARANCE IN PREDICTING GLOMERULAR FILTRATION RATE. ESTIMATED GFR IS NOT APPLICABLE FOR DIALYSIS PATIENTS. Specimen slightly ictericHEPATIC FUNCTION [id number] 10:31:00 Test Item Value Reference Range Comments TOTAL PROTEIN (BEAKER) (test vwnx=012) 5.8 gm/dL 6.0-8.3 ALBUMIN (BEAKER) (test zxnj=6598) 2.4 g/dL 3.5-5.0 BILIRUBIN TOTAL (BEAKER) (test dhdz=130) 4.1 mg/dL 0.2-1.2 BILIRUBIN DIRECT (BEAKER) (test zfmy=197) 3.1 mg/dL 0.1-0.5 ALKALINE PHOSPHATASE (BEAKER) (test ncsa=256) 126 U/L 40-150 AST (SGOT) (BEAKER) (test jiqc=731) 28 U/L 5-34 ALT (SGPT) (BEAKER) (test akuv=438) 13 U/L 6-55 Specimen slightly ictericCBC W/PLT COUNT & AUTO [id number] 10:09 :00 Test Item Value Reference Range Comments WHITE BLOOD CELL COUNT (BEAKER) (test qlug=420) 5.5 K/ L 3.5-10.5 RED BLOOD CELL COUNT (BEAKER) (test mqlx=098) 2.56 M/ L 4.63-6.08 HEMOGLOBIN (BEAKER) (test soxx=396) 8.1 GM/DL 13.7-17.5 HEMATOCRIT (BEAKER) (test zpjk=857) 24.2 % 40.1-51.0 MEAN CORPUSCULAR VOLUME (BEAKER) (test vrrs=103) 94.5 fL 79.0-92.2 MEAN CORPUSCULAR HEMOGLOBIN (BEAKER) (test 31.6 pg 25.7-32.2 afrs=529) MEAN CORPUSCULAR HEMOGLOBIN CONC (BEAKER) (test 33.5 GM/DL 32.3-36.5 qmsn=198) RED CELL DISTRIBUTION WIDTH (BEAKER) (test 18.6 % 11.6-14.4 bkfn=086) PLATELET COUNT (BEAKER) (test aqwq=260) 86 K/CU MM 150-450 MEAN PLATELET VOLUME (BEAKER) (test fazb=040) 9.7 fL 9.4-12.4 NUCLEATED RED BLOOD CELLS (BEAKER) (test 0 /100 WBC 0-0 kgvw=791) NEUTROPHILS RELATIVE PERCENT (BEAKER) (test 65 % xuuf=018) LYMPHOCYTES RELATIVE PERCENT (BEAKER) (test 13 % cnak=155) MONOCYTES RELATIVE PERCENT (BEAKER) (test 14 % nlct=458) EOSINOPHILS RELATIVE PERCENT (BEAKER) (test 6 % lgok=550) BASOPHILS RELATIVE PERCENT (BEAKER) (test 0 % wvjp=909) NEUTROPHILS ABSOLUTE COUNT (BEAKER) (test 3.59 K/ L 1.78-5.38 dqsr=278) LYMPHOCYTES ABSOLUTE COUNT (BEAKER) (test 0.73 K/ L 1.32-3.57 kuaw=975) MONOCYTES ABSOLUTE COUNT (BEAKER) (test slfr=734) 0.76 K/ L 0.30-0.82 EOSINOPHILS ABSOLUTE COUNT (BEAKER) (test 0.33 K/ L 0.04-0.54 xuaq=022) BASOPHILS ABSOLUTE COUNT (BEAKER) (test sfuy=339) 0.02 K/ L 0.01-0.08 IMMATURE GRANULOCYTES-RELATIVE PERCENT (BEAKER) 1 % 0-1 (test nrpn=2741) PROTHROMBIN [id number] 07:51:00 Test Item Value Reference Range Comments PROTIME (BEAKER) (test bbru=801) 23.8 seconds 11.7-14.7 INR (BEAKER) (test ptom=373) 2.1 <=5.9 RECOMMENDED COUMADIN/WARFARIN INR THERAPY RANGESSTANDARD DOSE: 2.0 - 3.0 Includes: PROPHYLAXIS forvenous thrombosis, systemic embolization; TREATMENT for venous thrombosis and/or pulmonary embolus.HIGH RISK: Target INR is 2.5-3.5 for patients with mechanical heart valves.BLOOD [id number] 05:02:00 Test Item Value Reference Range Comments CULTURE (BEAKER) (test vrfh=2527) No growth in 5 days BLOOD [id number] 05:02:00 Test Item Value Reference Range Comments CULTURE (BEAKER) (test gmcn=7547) No growth in 5 days BODY FLUID CULTURE + GRAM [id number] 09:05:00 Test Item Value Reference Range Comments CULTURE (BEAKER) (test pniv=9409) No growth GRAM STAIN RESULT (BEAKER) (test No White blood cells seen pwll=1198) GRAM STAIN RESULT (BEAKER) (test No organisms seen xkun=10903) RAPID DRUG SCREEN, [id number] 23:13:00 Test Item Value Reference Range Comments BARBITURATE URINE (BEAKER) (test fbgp=392) Negative Negative BENZODIAZEPINE SCREEN URINE (BEAKER) (test Negative Negative ysjg=204) COCAINE (METAB.) SCREEN (BEAKER) (test yudd=0445) Negative Negative METHADONE SCREEN (BEAKER) (test txry=6489) Negative Negative OPIATE SCREEN URINE (BEAKER) (test xsra=751) Negative Negative CANNABINOID SCREEN URINE (BEAKER) (test kety=105) Negative Negative AMPH/METHAMPH SCREEN (BEAKER) (test uxpf=9179) Negative Negative PHENCYCLIDINE SCREEN URINE (BEAKER) (test iowj=765) Negative Negative OXYCODONE SCREEN URINE (BEAKER) (test vhlh=1635) Negative Negative DRUG CUTOFF CONC.Cocaine 300 ng/mL Cannabinoid 50 ng/mL Benzodiazepine 200 ng/mLBarbiturate 200 ng/ mLPhencyclidine 25 ng/mLOpiate 300 ng/mLMethadone 300 ng/mLAmphetamine/ 1000 ng/mL MethamphetamineOxycodone 300 ng/mLThis assay provides an unconfirmed qualitative test result for the clinical management of patients in emergency situations. Chain of custody not maintained. Some ocsl-egu-pgwprst medications, as well as adulterants, may cause inaccurate results. Clinical correlation should be applied. A more comprehensive drug screen or confirmation of a detected drug may be performed upon request.MR, ABDOMEN, [id number] 13:52:00FINAL REPORT MRI of the abdomen with [...] MDRort Verified Date/Time: 09/05/2017 13:52:35 Reading Location: [facility] C013Y CT BodyReading Room CBC W/PLT COUNT & AUTO [id number] 05:46:00 Test Item Value Reference Range Comments WHITE BLOOD CELL COUNT (BEAKER) (test qazf=553) 4.7 K/ L 3.5-10.5 RED BLOOD CELL COUNT (BEAKER) (test oytn=450) 2.49 M/ L 4.63-6.08 HEMOGLOBIN (BEAKER) (test cykn=062) 7.9 GM/DL 13.7-17.5 HEMATOCRIT (BEAKER) (test poru=501) 22.6 % 40.1-51.0 MEAN CORPUSCULAR VOLUME (BEAKER) (test hwgg=832) 90.8 fL 79.0-92.2 MEAN CORPUSCULAR HEMOGLOBIN (BEAKER) (test 31.7 pg 25.7-32.2 nkwz=919) MEAN CORPUSCULAR HEMOGLOBIN CONC (BEAKER) (test 35.0 GM/DL 32.3-36.5 wizk=454) RED CELL DISTRIBUTION WIDTH (BEAKER) (test 18.8 % 11.6-14.4 fblc=875) PLATELET COUNT (BEAKER) (test ayjd=928) 60 K/CU MM 150-450 MEAN PLATELET VOLUME (BEAKER) (test zafm=333) 9.2 fL 9.4-12.4 NUCLEATED RED BLOOD CELLS (BEAKER) (test 0 /100 WBC 0-0 thtc=744) NEUTROPHILS RELATIVE PERCENT (BEAKER) (test 65 % jbwh=606) LYMPHOCYTES RELATIVE PERCENT (BEAKER) (test 13 % ihth=256) MONOCYTES RELATIVE PERCENT (BEAKER) (test 15 % xgtx=937) EOSINOPHILS RELATIVE PERCENT (BEAKER) (test 6 % ucyr=178) BASOPHILS RELATIVE PERCENT (BEAKER) (test 0 % uodl=985) NEUTROPHILS ABSOLUTE COUNT (BEAKER) (test 3.05 K/ L 1.78-5.38 mcnh=546) LYMPHOCYTES ABSOLUTE COUNT (BEAKER) (test 0.62 K/ L 1.32-3.57 fkws=416) MONOCYTES ABSOLUTE COUNT (BEAKER) (test bbvn=104) 0.68 K/ L 0.30-0.82 EOSINOPHILS ABSOLUTE COUNT (BEAKER) (test 0.28 K/ L 0.04-0.54 hqai=643) BASOPHILS ABSOLUTE COUNT (BEAKER) (test gxiw=083) 0.02 K/ L 0.01-0.08 IMMATURE GRANULOCYTES-RELATIVE PERCENT (BEAKER) 1 % 0-1 (test rgio=3788) BASIC METABOLIC [id number] 05:44:00 Test Item Value Reference Range Comments SODIUM (BEAKER) (test 127 meq/L 136-145 ewaa=410) POTASSIUM (BEAKER) (test 4.5 meq/L 3.5-5.1 wqgp=561) CHLORIDE (BEAKER) (test 101 meq/L 98-107 xpji=179) CO2 (BEAKER) (test 19 meq/L 22-29 mvnc=096) BLOOD UREA NITROGEN 17 mg/dL 7-21 (BEAKER) (test hwcf=363) CREATININE (BEAKER) (test 0.91 mg/dL 0.57-1.25 ssrb=911) GLUCOSE RANDOM (BEAKER) 107 mg/dL 70-105 (test uflf=445) CALCIUM (BEAKER) (test 9.4 mg/dL 8.4-10.2 zkel=494) EGFR (BEAKER) (test 87 mL/min/1.73 sq m ESTIMATED GFR IS NOT sljd=7456) ACCURATE CREATININE CLEARANCE IN PREDICTING GLOMERULAR FILTRATION RATE. ESTIMATED GFR IS NOT APPLICABLE FOR DIALYSIS PATIENTS. Specimen moderately ictericHEPATIC FUNCTION [id number] 05:44:00 Test Item Value Reference Range Comments TOTAL PROTEIN (BEAKER) (test tqhv=878) 5.6 gm/dL 6.0-8.3 ALBUMIN (BEAKER) (test blij=3093) 3.3 g/dL 3.5-5.0 BILIRUBIN TOTAL (BEAKER) (test igtb=062) 10.3 mg/dL 0.2-1.2 BILIRUBIN DIRECT (BEAKER) (test kkux=836) 6.8 mg/dL 0.1-0.5 ALKALINE PHOSPHATASE (BEAKER) (test wzjj=084) 103 U/L 40-150 AST (SGOT) (BEAKER) (test ycjv=650) 17 U/L 5-34 ALT (SGPT) (BEAKER) (test urvd=620) 8 U/L 6-55 Specimen moderately ictericPT/[id number] 05:31:00 Test Item Value Reference Range Comments PROTIME (BEAKER) (test oczj=420) 25.6 seconds 11.7-14.7 INR (BEAKER) (test itde=963) 2.3 <=5.9 PARTIAL THROMBOPLASTIN TIME (BEAKER) (test 51.6 seconds 22.5-36.0 lars=671) RECOMMENDED COUMADIN/WARFARIN INR THERAPY RANGESSTANDARD DOSE: 2.0 - 3.0 Includes: PROPHYLAXIS forvenous thrombosis, systemic embolization; TREATMENT for venous thrombosis and/or pulmonary embolus.HIGH RISK: Target INR is 2.5-3.5 for patients with mechanical heart valves.PROTHROMBIN TIME/[id number] 05:30: 00 Test Item Value Reference Range Comments PROTIME (BEAKER) (test odnf=660) 25.6 seconds 11.7-14.7 INR (BEAKER) (test svtl=687) 2.3 <=5.9 RECOMMENDED COUMADIN/WARFARIN INR THERAPY RANGESSTANDARD DOSE: 2.0 - 3.0 Includes: PROPHYLAXIS forvenous thrombosis, systemic embolization; TREATMENT for venous thrombosis and/or pulmonary embolus.HIGH RISK: Target INR is 2.5-3.5 for patients with mechanical heart valves.BODY FLUID CELL COUNT WITH [id number] 19:30:00 Test Item Value Reference Range Comments APPEARANCE FLUID (BEAKER) (test jknx=322) Slightly Hazy Clear COLOR FLUID (BEAKER) (test bugb=557) Yellow Colorless, Straw RBC FLUID (BEAKER) (test daob=521) 100 /cu mm <=1 ADJUSTED WBC FLUID (BEAKER) (test eumf=0496) 36 /cu mm <=5 LINING CELLS (BEAKER) (test rkcr=9725) 4 /cu mm <=1 NEUTROPHILS FLUID (BEAKER) (test djhh=3065) 0 % LYMPHS FLUID (BEAKER) (test nkfz=559) 20 % MONO/MACROPHAGE FLUID (BEAKER) (test 80 % suba=964) EOSINOPHILS FLUID (BEAKER) (test hkms=054) 0 % BASO FLUID (BEAKER) (test grrv=048) 0 % CONTAINER BODY FLUID (BEAKER) (test EDTA Tube wcoz=1533) U/S, [id number] 16:21:00Reason for exam:->ascitesShould this be performed at the bedside?->NoFINAL REPORT PROCEDURE: Ultrasound-guided paracentesis. INDICATION: 52-year-old man with ascites. DESCRIPTION: After obtaining informed written consent, ultrasound scan of the abdomen identified ascites in the right lower quadrant. The overlying skin was prepped and draped in the usual, sterile fashion and local 1% lidocaine anesthesia was administered. A 5 [place] catheter was advanced into the peritoneal cavity and 13,200 cc of cloudy yellow fluid was removed. The catheter was removed without immediate complication. Samples were sent for analysis. IMPRESSION:Uncomplicated ultrasound-guided paracentesis with 13,200 cc fluid removed. Signed: Candice Mckeon Verified Date/Time: 2016 16:21:22 Reading Location: [address] Ultrasound Reading Room BASI METABOLIC [id number] 11:07:00 Test Item Value Reference Range Comments SODIUM (BEAKER) (test 127 meq/L 136-145 rdag=294) POTASSIUM (BEAKER) (test 4.1 meq/L 3.5-5.1 rdov=725) CHLORIDE (BEAKER) (test 101 meq/L 98-107 ldpn=284) CO2 (BEAKER) (test 23 meq/L 22-29 reej=177) BLOOD UREA NITROGEN 17 mg/dL 7-21 (BEAKER) (test leqg=905) CREATININE (BEAKER) (test 1.06 mg/dL 0.57-1.25 kwip=941) GLUCOSE RANDOM (BEAKER) 104 mg/dL 70-105 (test veiv=988) CALCIUM (BEAKER) (test 8.9 mg/dL 8.4-10.2 ylcc=478) EGFR (BEAKER) (test 73 mL/min/1.73 sq m ESTIMATED GFR IS NOT onvv=7826) ACCURATE CREATININE CLEARANCE IN PREDICTING GLOMERULAR FILTRATION RATE. ESTIMATED GFR IS NOT APPLICABLE FOR DIALYSIS PATIENTS. Specimen markedly ictericHEPATIC FUNCTION [id number] 11:07:00 Test Item Value Reference Range Comments TOTAL PROTEIN (BEAKER) (test iayu=714) 5.4 gm/dL 6.0-8.3 ALBUMIN (BEAKER) (test xrsm=7968) 2.8 g/dL 3.5-5.0 BILIRUBIN TOTAL (BEAKER) (test lqiw=079) 12.7 mg/dL 0.2-1.2 BILIRUBIN DIRECT (BEAKER) (test ucro=061) 7.8 mg/dL 0.1-0.5 ALKALINE PHOSPHATASE (BEAKER) (test hyfw=695) 90 U/L 40-150 AST (SGOT) (BEAKER) (test jdfv=502) 22 U/L 5-34 ALT (SGPT) (BEAKER) (test gfdh=876) 11 U/L 6-55 Specimen markedly ictericPT/[id number] 11:02:00 Test Item Value Reference Range Comments PROTIME (BEAKER) (test jngo=186) 23.4 seconds 11.7-14.7 INR (BEAKER) (test frcw=478) 2.1 <=5.9 PARTIAL THROMBOPLASTIN TIME (BEAKER) (test 48.7 seconds 22.5-36.0 jjth=472) RECOMMENDED COUMADIN/WARFARIN INR THERAPY RANGESSTANDARD DOSE: 2.0 - 3.0 Includes: PROPHYLAXIS forvenous thrombosis, systemic embolization; TREATMENT for venous thrombosis and/or pulmonary embolus.HIGH RISK: Target INR is 2.5-3.5 for patients with mechanical heart valves.PROTHROMBIN [id number] 11:01: 00 Test Item Value Reference Range Comments PROTIME (BEAKER) (test fufx=858) 23.4 seconds 11.7-14.7 INR (BEAKER) (test omfi=876) 2.1 <=5.9 RECOMMENDED COUMADIN/WARFARIN INR THERAPY RANGESSTANDARD DOSE: 2.0 - 3.0 Includes: PROPHYLAXIS forvenous thrombosis, systemic embolization; TREATMENT for venous thrombosis and/or pulmonary embolus.HIGH RISK: Target INR is 2.5-3.5 for patients with mechanical heart valves.CBC W/PLT COUNT & AUTO [id number] 10:56:00 Test Item Value Reference Range Comments WHITE BLOOD CELL COUNT (BEAKER) (test heje=737) 4.4 K/ L 3.5-10.5 RED BLOOD CELL COUNT (BEAKER) (test yjeb=452) 2.48 M/ L 4.63-6.08 HEMOGLOBIN (BEAKER) (test gosu=753) 7.8 GM/DL 13.7-17.5 HEMATOCRIT (BEAKER) (test czcg=176) 22.7 % 40.1-51.0 MEAN CORPUSCULAR VOLUME (BEAKER) (test xdkq=150) 91.5 fL 79.0-92.2 MEAN CORPUSCULAR HEMOGLOBIN (BEAKER) (test 31.5 pg 25.7-32.2 yegt=939) MEAN CORPUSCULAR HEMOGLOBIN CONC (BEAKER) (test 34.4 GM/DL 32.3-36.5 oivy=159) RED CELL DISTRIBUTION WIDTH (BEAKER) (test 18.6 % 11.6-14.4 hlfz=065) PLATELET COUNT (BEAKER) (test desd=867) 60 K/CU MM 150-450 MEAN PLATELET VOLUME (BEAKER) (test yxnt=903) 8.8 fL 9.4-12.4 NUCLEATED RED BLOOD CELLS (BEAKER) (test 0 /100 WBC 0-0 jkvx=937) NEUTROPHILS RELATIVE PERCENT (BEAKER) (test 61 % oypb=112) LYMPHOCYTES RELATIVE PERCENT (BEAKER) (test 9 % orrj=536) MONOCYTES RELATIVE PERCENT (BEAKER) (test 21 % arww=961) EOSINOPHILS RELATIVE PERCENT (BEAKER) (test 8 % iyzq=851) BASOPHILS RELATIVE PERCENT (BEAKER) (test 1 % nims=473) NEUTROPHILS ABSOLUTE COUNT (BEAKER) (test 2.68 K/ L 1.78-5.38 hovp=249) LYMPHOCYTES ABSOLUTE COUNT (BEAKER) (test 0.38 K/ L 1.32-3.57 cbbc=817) MONOCYTES ABSOLUTE COUNT (BEAKER) (test kmtn=238) 0.94 K/ L 0.30-0.82 EOSINOPHILS ABSOLUTE COUNT (BEAKER) (test 0.33 K/ L 0.04-0.54 wczz=476) BASOPHILS ABSOLUTE COUNT (BEAKER) (test ivhu=524) 0.02 K/ L 0.01-0.08 IMMATURE GRANULOCYTES-RELATIVE PERCENT (BEAKER) 1 % 0-1 (test fsuk=7282) URINALYSIS W/ [id number] 06:18:00 Test Item Value Reference Range Comments COLOR (BEAKER) (test iqhw=355) Dark Yellow CLARITY (BEAKER) (test rfog=240) Clear SPECIFIC GRAVITY UA (BEAKER) (test moop=872) 1.008 1.001-1.035 PH UA (BEAKER) (test bven=637) 6.0 5.0-8.0 PROTEIN UA (BEAKER) (test kawm=584) Negative Negative GLUCOSE UA (BEAKER) (test tsta=094) Negative Negative KETONES UA (BEAKER) (test xflx=117) Negative Negative BILIRUBIN UA (BEAKER) (test ebzk=840) Positive Negative BLOOD UA (BEAKER) (test riuh=484) Moderate Negative NITRITE UA (BEAKER) (test crmr=035) Negative Negative LEUKOCYTE ESTERASE UA (BEAKER) (test ywka=592) Negative Negative UROBILINOGEN UA (BEAKER) (test tlot=865) 0.2 mg/dL 0.2-1.0 RBC UA (BEAKER) (test sewi=726) 80 /HPF WBC UA (BEAKER) (test wuog=378) 10 /HPF HYALINE CASTS (BEAKER) (test hcsb=941) 5 /LPF AMORPHOUS CRYSTALS (BEAKER) (test iiof=6042) Rare SOURCE(BEAKER) (test sgeh=3082) CBC W/PLT COUNT & AUTO [id number] 00:00:00 Test Item Value Reference Range Comments WHITE BLOOD CELL COUNT (BEAKER) (test lmtp=979) 3.7 K/ L 3.5-10.5 RED BLOOD CELL COUNT (BEAKER) (test upig=824) 2.20 M/ L 4.63-6.08 HEMOGLOBIN (BEAKER) (test qzfb=902) 7.0 GM/DL 13.7-17.5 HEMATOCRIT (BEAKER) (test jnfb=241) 20.2 % 40.1-51.0 MEAN CORPUSCULAR VOLUME (BEAKER) (test dzeh=111) 91.8 fL 79.0-92.2 MEAN CORPUSCULAR HEMOGLOBIN (BEAKER) (test 31.8 pg 25.7-32.2 dxxn=741) MEAN CORPUSCULAR HEMOGLOBIN CONC (BEAKER) (test 34.7 GM/DL 32.3-36.5 aebt=417) RED CELL DISTRIBUTION WIDTH (BEAKER) (test 19.3 % 11.6-14.4 oedd=224) PLATELET COUNT (BEAKER) (test labj=897) 63 K/CU MM 150-450 MEAN PLATELET VOLUME (BEAKER) (test uvdq=845) 9.1 fL 9.4-12.4 NUCLEATED RED BLOOD CELLS (BEAKER) (test 0 /100 WBC 0-0 uiqi=081) NEUTROPHILS RELATIVE PERCENT (BEAKER) (test 62 % gjjn=861) LYMPHOCYTES RELATIVE PERCENT (BEAKER) (test 11 % phar=724) MONOCYTES RELATIVE PERCENT (BEAKER) (test 19 % tbrw=752) EOSINOPHILS RELATIVE PERCENT (BEAKER) (test 7 % newc=325) BASOPHILS RELATIVE PERCENT (BEAKER) (test 1 % zxma=465) NEUTROPHILS ABSOLUTE COUNT (BEAKER) (test 2.29 K/ L 1.78-5.38 fmra=226) LYMPHOCYTES ABSOLUTE COUNT (BEAKER) (test 0.39 K/ L 1.32-3.57 trku=607) MONOCYTES ABSOLUTE COUNT (BEAKER) (test eunm=378) 0.71 K/ L 0.30-0.82 EOSINOPHILS ABSOLUTE COUNT (BEAKER) (test 0.27 K/ L 0.04-0.54 bhdu=484) BASOPHILS ABSOLUTE COUNT (BEAKER) (test ogda=454) 0.02 K/ L 0.01-0.08 IMMATURE GRANULOCYTES-RELATIVE PERCENT (BEAKER) 1 % 0-1 (test vfle=1880) PROTHROMBIN [id number] 22:52:00 Test Item Value Reference Range Comments PROTIME (BEAKER) (test esds=038) 25.6 seconds 11.7-14.7 INR (BEAKER) (test xvem=143) 2.3 <=5.9 RECOMMENDED COUMADIN/WARFARIN INR THERAPY RANGESSTANDARD DOSE: 2.0 - 3.0 Includes: PROPHYLAXIS forvenous thrombosis, systemic embolization; TREATMENT for venous thrombosis and/or pulmonary embolus.HIGH RISK: Target INR is 2.5-3.5 for patients with mechanical heart valves.[id number] 22:52:00 Test Item Value Reference Range Comments MAGNESIUM (BEAKER) (test qqpt=814) 1.3 mg/dL 1.6-2.6 BASIC METABOLIC [id number] 22:52:00 Test Item Value Reference Range Comments SODIUM (BEAKER) (test 124 meq/L 136-145 qfau=258) POTASSIUM (BEAKER) (test 4.1 meq/L 3.5-5.1 bzcd=219) CHLORIDE (BEAKER) (test 99 meq/L 98-107 uxeh=212) CO2 (BEAKER) (test 18 meq/L 22-29 nvpm=131) BLOOD UREA NITROGEN 16 mg/dL 7-21 (BEAKER) (test jova=197) CREATININE (BEAKER) (test 0.97 mg/dL 0.57-1.25 wlie=476) GLUCOSE RANDOM (BEAKER) 99 mg/dL 70-105 (test ydfm=214) CALCIUM (BEAKER) (test 8.7 mg/dL 8.4-10.2 brom=175) EGFR (BEAKER) (test 81 mL/min/1.73 sq m ESTIMATED GFR IS NOT zvet=7327) ACCURATE CREATININE CLEARANCE IN PREDICTING GLOMERULAR FILTRATION RATE. ESTIMATED GFR IS NOT APPLICABLE FOR DIALYSIS PATIENTS. Specimen markedly ictericHEPATIC FUNCTION [id number] 22:52:00 Test Item Value Reference Range Comments TOTAL PROTEIN (BEAKER) (test ptek=230) 5.3 gm/dL 6.0-8.3 ALBUMIN (BEAKER) (test vorf=8713) 2.8 g/dL 3.5-5.0 BILIRUBIN TOTAL (BEAKER) (test ilmk=933) 12.7 mg/dL 0.2-1.2 BILIRUBIN DIRECT (BEAKER) (test ujdz=588) 7.6 mg/dL 0.1-0.5 ALKALINE PHOSPHATASE (BEAKER) (test nsjq=187) 93 U/L 40-150 AST (SGOT) (BEAKER) (test xipm=772) 21 U/L 5-34 ALT (SGPT) (BEAKER) (test sqvf=456) 9 U/L 6-55 Specimen markedly ictericALPHA FETOPROTEIN (AFP), TUMOR [id number] 16:39: 00 Test Item Value Reference Range Comments ALPHA-FETOPROTEIN (BEAKER) (test bhtq=3675) 2.5 ng/mL <10.0 BASIC METABOLIC [id number] 15:53:00 Test Item Value Reference Range Comments SODIUM (BEAKER) (test 126 meq/L 136-145 dxcb=005) POTASSIUM (BEAKER) (test 5.1 meq/L 3.5-5.1 ekiu=634) CHLORIDE (BEAKER) (test 101 meq/L 98-107 xrsf=338) CO2 (BEAKER) (test 19 meq/L 22-29 jkgi=600) BLOOD UREA NITROGEN 14 mg/dL 7-21 (BEAKER) (test ekbt=159) CREATININE (BEAKER) (test 1.01 mg/dL 0.57-1.25 osrg=465) GLUCOSE RANDOM (BEAKER) 104 mg/dL 70-105 (test ntuq=394) CALCIUM (BEAKER) (test 9.0 mg/dL 8.4-10.2 pjsa=345) EGFR (BEAKER) (test 78 mL/min/1.73 sq m ESTIMATED GFR IS NOT rbdt=7594) ACCURATE CREATININE CLEARANCE IN PREDICTING GLOMERULAR FILTRATION RATE. ESTIMATED GFR IS NOT APPLICABLE FOR DIALYSIS PATIENTS. Specimen moderately ictericHEPATIC FUNCTION [id number] 15:53:00 Test Item Value Reference Range Comments TOTAL PROTEIN (BEAKER) (test ubcn=196) 6.1 gm/dL 6.0-8.3 ALBUMIN (BEAKER) (test omll=0414) 2.6 g/dL 3.5-5.0 BILIRUBIN TOTAL (BEAKER) (test rxnp=276) 10.4 mg/dL 0.2-1.2 BILIRUBIN DIRECT (BEAKER) (test navp=014) 7.5 mg/dL 0.1-0.5 ALKALINE PHOSPHATASE (BEAKER) (test mexw=867) 124 U/L 40-150 AST (SGOT) (BEAKER) (test xwoo=468) 29 U/L 5-34 ALT (SGPT) (BEAKER) (test zsgw=992) 12 U/L 6-55 Specimen moderately ictericGAMMA GLUTAMYL TRANSFERASE (GGT)[id number] 15:53:00 Test Item Value Reference Range Comments GAMMA GLUTAMYL TRANSFERASE (BEAKER) (test flkq=102) 17 U/L 9-64 Specimen moderately ictericPROTHROMBIN TIME/[id number] 15:40:00 Test Item Value Reference Range Comments PROTIME (BEAKER) (test qplo=492) 22.6 seconds 11.7-14.7 INR (BEAKER) (test bwun=483) 2.0 <=5.9 RECOMMENDED COUMADIN/WARFARIN INR THERAPY RANGESSTANDARD DOSE: 2.0 - 3.0 Includes: PROPHYLAXIS forvenous thrombosis, systemic embolization; TREATMENT for venous thrombosis and/or pulmonary embolus.HIGH RISK: Target INR is 2.5-3.5 for patients with mechanical heart valves.CBC W/PLT COUNT & AUTO [id number] 15:38:00 Test Item Value Reference Range Comments WHITE BLOOD CELL COUNT (BEAKER) (test osnc=966) 7.3 K/ L 3.5-10.5 RED BLOOD CELL COUNT (BEAKER) (test chth=761) 2.78 M/ L 4.63-6.08 HEMOGLOBIN (BEAKER) (test oyuh=215) 9.1 GM/DL 13.7-17.5 HEMATOCRIT (BEAKER) (test jbtv=494) 27.3 % 40.1-51.0 MEAN CORPUSCULAR VOLUME (BEAKER) (test snbt=650) 98.2 fL 79.0-92.2 MEAN CORPUSCULAR HEMOGLOBIN (BEAKER) (test 32.7 pg 25.7-32.2 pgcr=971) MEAN CORPUSCULAR HEMOGLOBIN CONC (BEAKER) (test 33.3 GM/DL 32.3-36.5 sdtj=425) RED CELL DISTRIBUTION WIDTH (BEAKER) (test 16.4 % 11.6-14.4 tgtx=261) PLATELET COUNT (BEAKER) (test fkxy=440) 71 K/CU MM 150-450 MEAN PLATELET VOLUME (BEAKER) (test etus=278) 9.1 fL 9.4-12.4 NUCLEATED RED BLOOD CELLS (BEAKER) (test 0 /100 WBC 0-0 dgko=668) NEUTROPHILS RELATIVE PERCENT (BEAKER) (test 71 % japu=495) LYMPHOCYTES RELATIVE PERCENT (BEAKER) (test 8 % fjel=025) MONOCYTES RELATIVE PERCENT (BEAKER) (test 15 % mnzi=033) EOSINOPHILS RELATIVE PERCENT (BEAKER) (test 5 % qwap=258) BASOPHILS RELATIVE PERCENT (BEAKER) (test 0 % dlro=037) NEUTROPHILS ABSOLUTE COUNT (BEAKER) (test 5.13 K/ L 1.78-5.38 ukid=158) LYMPHOCYTES ABSOLUTE COUNT (BEAKER) (test 0.59 K/ L 1.32-3.57 jpun=290) MONOCYTES ABSOLUTE COUNT (BEAKER) (test zmkx=419) 1.06 K/ L 0.30-0.82 EOSINOPHILS ABSOLUTE COUNT (BEAKER) (test 0.33 K/ L 0.04-0.54 hzay=055) BASOPHILS ABSOLUTE COUNT (BEAKER) (test ntdj=362) 0.03 K/ L 0.01-0.08 IMMATURE GRANULOCYTES-RELATIVE PERCENT (BEAKER) 2 % 0-1 (test baps=5838) FUNGUS CULTURE + [id number] 07:22:00 Test Item Value Reference Range Comments CULTURE (BEAKER) (test No fungus isolated in 28 days qdrz=0775) FUNGUS SMEAR (BEAKER) (test No fungi seen bygp=6221) HISTOPLASMA ANTIGEN, [id number] 08:01:00 Test Item Value Reference Range Comments SCAN RESULT (test syfa=[id number]) TISSUE [id number] 10:58:00 Test Item Value Reference Range Comments LAB AP CPT CODE (BEAKER) (test ofsb=9083) [id number] BLOOD [id number] 16:15:00 Test Item Value Reference Range Comments CULTURE (BEAKER) (test bxtz=3225) No growth in 5 days BLOOD [id number] 16:15:00 Test Item Value Reference Range Comments CULTURE (BEAKER) (test rerk=7726) No growth in 5 days [id number] 06:54:00 Test Item Value Reference Range Comments PHOSPHORUS (BEAKER) (test wzem=496) 3.3 mg/dL 2.3-4.7 [id number] 06:54:00 Test Item Value Reference Range Comments MAGNESIUM (BEAKER) (test hhsr=904) 1.2 mg/dL 1.6-2.6 BASIC METABOLIC [id number] 06:54:00 Test Item Value Reference Range Comments SODIUM (BEAKER) (test 133 meq/L 136-145 fxah=786) POTASSIUM (BEAKER) (test 3.6 meq/L 3.5-5.1 uaxg=059) CHLORIDE (BEAKER) (test 108 meq/L 98-107 mpas=843) CO2 (BEAKER) (test 17 meq/L 22-29 cztt=123) BLOOD UREA NITROGEN 13 mg/dL 7-21 (BEAKER) (test zcny=519) CREATININE (BEAKER) (test 1.16 mg/dL 0.57-1.25 lguw=671) GLUCOSE RANDOM (BEAKER) 82 mg/dL 70-105 (test xyta=487) CALCIUM (BEAKER) (test 8.0 mg/dL 8.4-10.2 cflx=087) EGFR (BEAKER) (test 66 mL/min/1.73 sq m ESTIMATED GFR IS NOT hxqv=1465) ACCURATE CREATININE CLEARANCE IN PREDICTING GLOMERULAR FILTRATION RATE. ESTIMATED GFR IS NOT APPLICABLE FOR DIALYSIS PATIENTS. Specimen moderately ictericHEPATIC FUNCTION [id number] 06:54:00 Test Item Value Reference Range Comments TOTAL PROTEIN (BEAKER) (test bith=445) 5.7 gm/dL 6.0-8.3 ALBUMIN (BEAKER) (test asqr=3714) 3.1 g/dL 3.5-5.0 BILIRUBIN TOTAL (BEAKER) (test japn=221) 5.2 mg/dL 0.2-1.2 BILIRUBIN DIRECT (BEAKER) (test hfja=487) 2.6 mg/dL 0.1-0.5 ALKALINE PHOSPHATASE (BEAKER) (test aaym=753) 55 U/L 40-150 AST (SGOT) (BEAKER) (test egzl=843) 32 U/L 5-34 ALT (SGPT) (BEAKER) (test tgvr=071) 9 U/L 6-55 Specimen moderately ictericCALCIUM, [id number] 06:30:00 Test Item Value Reference Range Comments CALCIUM IONIZED (BEAKER) (test rzhc=590) 1.00 mmol/L 1.12-1.27 PH, BLOOD (BEAKER) (test oebm=1183) 7.52 CBC W/PLT COUNT & AUTO [id number] 06:17:00 Test Item Value Reference Range Comments WHITE BLOOD CELL COUNT (BEAKER) (test gdbf=237) 4.7 K/ L 4.0-10.0 RED BLOOD CELL COUNT (BEAKER) (test meux=054) 2.05 M/ L 4.20-5.80 HEMOGLOBIN (BEAKER) (test wtia=626) 7.1 GM/DL 13.0-16.8 HEMATOCRIT (BEAKER) (test iaxs=463) 21.1 % 40.0-50.0 MEAN CORPUSCULAR VOLUME (BEAKER) (test cidk=525) 103.0 fL 82.0-98.0 MEAN CORPUSCULAR HEMOGLOBIN (BEAKER) (test 34.8 pg 27.0-33.0 mrqp=137) MEAN CORPUSCULAR HEMOGLOBIN CONC (BEAKER) (test 33.8 GM/DL 32.0-36.0 bzud=921) RED CELL DISTRIBUTION WIDTH (BEAKER) (test 13.9 % 10.3-14.2 hvzj=426) PLATELET COUNT (BEAKER) (test ppck=060) 71 K/CU MM 150-430 MEAN PLATELET VOLUME (BEAKER) (test kpqj=126) 6.6 fL 6.5-10.5 NUCLEATED RED BLOOD CELLS (BEAKER) (test 0 /100 WBC 0-0 ufrg=802) NEUTROPHILS RELATIVE PERCENT (BEAKER) (test 68 % hojy=215) LYMPHOCYTES RELATIVE PERCENT (BEAKER) (test 16 % whwq=245) MONOCYTES RELATIVE PERCENT (BEAKER) (test 12 % lfki=671) EOSINOPHILS RELATIVE PERCENT (BEAKER) (test 4 % mwzo=108) BASOPHILS RELATIVE PERCENT (BEAKER) (test 1 % tsuv=925) NEUTROPHILS ABSOLUTE COUNT (BEAKER) (test 3.21 K/ L 1.80-8.00 xrfx=003) LYMPHOCYTES ABSOLUTE COUNT (BEAKER) (test 0.75 K/ L 1.48-4.50 tqut=916) MONOCYTES ABSOLUTE COUNT (BEAKER) (test llxb=344) 0.57 K/ L 0.00-1.30 EOSINOPHILS ABSOLUTE COUNT (BEAKER) (test 0.19 K/ L 0.00-0.50 snrd=603) BASOPHILS ABSOLUTE COUNT (BEAKER) (test fehn=940) 0.03 K/ L 0.00-0.20 0.00PROTHROMBIN [id number] 05:56:00 Test Item Value Reference Range Comments PROTIME (BEAKER) (test zfbb=185) 26.4 seconds 11.7-14.7 INR (BEAKER) (test hsde=014) 2.4 <=5.9 RECOMMENDED COUMADIN/WARFARIN INR THERAPY RANGESSTANDARD DOSE: 2.0 - 3.0 Includes: PROPHYLAXIS forvenous thrombosis, systemic embolization; TREATMENT for venous thrombosis and/or pulmonary embolus.HIGH RISK: Target INR is 2.5-3.5 for patients with mechanical heart valves.BASIC METABOLIC [id number] 04:44: 00 Test Item Value Reference Range Comments SODIUM (BEAKER) (test 134 meq/L 136-145 kbqr=537) POTASSIUM (BEAKER) (test 3.6 meq/L 3.5-5.1 okzo=089) CHLORIDE (BEAKER) (test 108 meq/L 98-107 swgg=797) CO2 (BEAKER) (test 19 meq/L 22-29 pdpv=378) BLOOD UREA NITROGEN 12 mg/dL 7-21 (BEAKER) (test cyek=186) CREATININE (BEAKER) (test 1.32 mg/dL 0.57-1.25 rhxq=179) GLUCOSE RANDOM (BEAKER) 82 mg/dL 70-105 (test ridg=991) CALCIUM (BEAKER) (test 7.9 mg/dL 8.4-10.2 hqbj=413) EGFR (BEAKER) (test 57 mL/min/1.73 sq m ESTIMATED GFR IS NOT wfoc=9118) ACCURATE CREATININE CLEARANCE IN PREDICTING GLOMERULAR FILTRATION RATE. ESTIMATED GFR IS NOT APPLICABLE FOR DIALYSIS PATIENTS. Specimen moderately ictericHEPATIC FUNCTION [id number] 04:42:00 Test Item Value Reference Range Comments TOTAL PROTEIN (BEAKER) (test hqhl=747) 5.8 gm/dL 6.0-8.3 ALBUMIN (BEAKER) (test advu=5796) 3.1 g/dL 3.5-5.0 BILIRUBIN TOTAL (BEAKER) (test ogbm=870) 5.1 mg/dL 0.2-1.2 BILIRUBIN DIRECT (BEAKER) (test sjrc=337) 2.7 mg/dL 0.1-0.5 ALKALINE PHOSPHATASE (BEAKER) (test tjry=523) 51 U/L 40-150 AST (SGOT) (BEAKER) (test fmgl=866) 27 U/L 5-34 ALT (SGPT) (BEAKER) (test cwrg=312) 7 U/L 6-55 Specimen moderately ictericCBC W/PLT COUNT & AUTO [id number] 04: 35:00 Test Item Value Reference Range Comments WHITE BLOOD CELL COUNT (BEAKER) (test mpzf=544) 4.6 K/ L 4.0-10.0 RED BLOOD CELL COUNT (BEAKER) (test yvey=223) 2.06 M/ L 4.20-5.80 HEMOGLOBIN (BEAKER) (test klrq=694) 7.2 GM/DL 13.0-16.8 HEMATOCRIT (BEAKER) (test cwdn=256) 21.5 % 40.0-50.0 MEAN CORPUSCULAR VOLUME (BEAKER) (test tjcd=730) 104.0 fL 82.0-98.0 MEAN CORPUSCULAR HEMOGLOBIN (BEAKER) (test 35.0 pg 27.0-33.0 sunx=094) MEAN CORPUSCULAR HEMOGLOBIN CONC (BEAKER) (test 33.6 GM/DL 32.0-36.0 jmgl=544) RED CELL DISTRIBUTION WIDTH (BEAKER) (test 13.4 % 10.3-14.2 wxhk=015) PLATELET COUNT (BEAKER) (test gwns=113) 76 K/CU MM 150-430 MEAN PLATELET VOLUME (BEAKER) (test jvjz=333) 6.5 fL 6.5-10.5 NUCLEATED RED BLOOD CELLS (BEAKER) (test 0 /100 WBC 0-0 srft=157) NEUTROPHILS RELATIVE PERCENT (BEAKER) (test 64 % zdki=414) LYMPHOCYTES RELATIVE PERCENT (BEAKER) (test 16 % trae=530) MONOCYTES RELATIVE PERCENT (BEAKER) (test 16 % shpk=650) EOSINOPHILS RELATIVE PERCENT (BEAKER) (test 4 % vogn=391) BASOPHILS RELATIVE PERCENT (BEAKER) (test 1 % ddje=233) NEUTROPHILS ABSOLUTE COUNT (BEAKER) (test 2.89 K/ L 1.80-8.00 dpye=556) LYMPHOCYTES ABSOLUTE COUNT (BEAKER) (test 0.72 K/ L 1.48-4.50 daqo=874) MONOCYTES ABSOLUTE COUNT (BEAKER) (test sahd=981) 0.71 K/ L 0.00-1.30 EOSINOPHILS ABSOLUTE COUNT (BEAKER) (test 0.20 K/ L 0.00-0.50 llzr=574) BASOPHILS ABSOLUTE COUNT (BEAKER) (test mpdk=245) 0.03 K/ L 0.00-0.20 0.00PROTHROMBIN [id number] 04:33:00 Test Item Value Reference Range Comments PROTIME (BEAKER) (test yfwb=748) 30.2 seconds 11.7-14.7 INR (BEAKER) (test hhqd=166) 2.9 <=5.9 RECOMMENDED COUMADIN/WARFARIN INR THERAPY RANGESSTANDARD DOSE: 2.0 - 3.0 Includes: PROPHYLAXIS forvenous thrombosis, systemic embolization; TREATMENT for venous thrombosis and/or pulmonary embolus.HIGH RISK: Target INR is 2.5-3.5 for patients with mechanical heart valves.VANCOMYCIN LEVEL, [id number] 17: 04:00 Test Item Value Reference Range Comments VANCOMYCIN TROUGH (BEAKER) (test elml=844) 12.2 ug/mL 10.0-20.0 URINE [id number] 14:25:00 Test Item Value Reference Range Comments CULTURE (BEAKER) (test azjq=5801) No growth TSH/FREE T4 IF [id number] 14:22:00 Test Item Value Reference Range Comments THYROID STIMULATING HORMONE (BEAKER) (test 3.53 uIU/mL 0.35-4.94 cveb=645) URINE [id number] 11:43:00 Test Item Value Reference Range Comments CULTURE (BEAKER) (test cgdq=9998) No growth CBC W/PLT COUNT & AUTO [id number] 07:55:00 Test Item Value Reference Range Comments WHITE BLOOD CELL COUNT (BEAKER) (test sxxi=714) 4.5 K/ L 4.0-10.0 RED BLOOD CELL COUNT (BEAKER) (test dmbo=265) 2.06 M/ L 4.20-5.80 HEMOGLOBIN (BEAKER) (test bwug=967) 7.1 GM/DL 13.0-16.8 HEMATOCRIT (BEAKER) (test mcro=687) 21.5 % 40.0-50.0 MEAN CORPUSCULAR VOLUME (BEAKER) (test pavz=232) 104.0 fL 82.0-98.0 MEAN CORPUSCULAR HEMOGLOBIN (BEAKER) (test 34.5 pg 27.0-33.0 trpi=149) MEAN CORPUSCULAR HEMOGLOBIN CONC (BEAKER) (test 33.1 GM/DL 32.0-36.0 byoa=137) RED CELL DISTRIBUTION WIDTH (BEAKER) (test 13.4 % 10.3-14.2 dfih=956) PLATELET COUNT (BEAKER) (test fjve=869) 79 K/CU MM 150-430 MEAN PLATELET VOLUME (BEAKER) (test yobv=043) 6.8 fL 6.5-10.5 NUCLEATED RED BLOOD CELLS (BEAKER) (test 0 /100 WBC 0-0 ipow=194) NEUTROPHILS RELATIVE PERCENT (BEAKER) (test 64 % ndaq=806) LYMPHOCYTES RELATIVE PERCENT (BEAKER) (test 16 % akok=133) MONOCYTES RELATIVE PERCENT (BEAKER) (test 15 % yvwu=952) EOSINOPHILS RELATIVE PERCENT (BEAKER) (test 5 % umdp=652) BASOPHILS RELATIVE PERCENT (BEAKER) (test 0 % qnch=353) NEUTROPHILS ABSOLUTE COUNT (BEAKER) (test 2.88 K/ L 1.80-8.00 vecf=234) LYMPHOCYTES ABSOLUTE COUNT (BEAKER) (test 0.73 K/ L 1.48-4.50 cdel=854) MONOCYTES ABSOLUTE COUNT (BEAKER) (test zbrj=553) 0.68 K/ L 0.00-1.30 EOSINOPHILS ABSOLUTE COUNT (BEAKER) (test 0.23 K/ L 0.00-0.50 pbtc=136) BASOPHILS ABSOLUTE COUNT (BEAKER) (test pmay=951) 0.02 K/ L 0.00-0.20 0.00BASI METABOLIC [id number] 05:58:00 Test Item Value Reference Range Comments SODIUM (BEAKER) (test 137 meq/L 136-145 tbto=894) POTASSIUM (BEAKER) (test 3.7 meq/L 3.5-5.1 zbpi=740) CHLORIDE (BEAKER) (test 110 meq/L 98-107 iiwn=241) CO2 (BEAKER) (test 19 meq/L 22-29 wotb=909) BLOOD UREA NITROGEN 12 mg/dL 7-21 (BEAKER) (test srpw=029) CREATININE (BEAKER) (test 1.29 mg/dL 0.57-1.25 dcjp=205) GLUCOSE RANDOM (BEAKER) 80 mg/dL 70-105 (test obrq=801) CALCIUM (BEAKER) (test 8.1 mg/dL 8.4-10.2 qqjp=301) EGFR (BEAKER) (test 59 mL/min/1.73 sq m ESTIMATED GFR IS NOT fqaj=1269) ACCURATE CREATININE CLEARANCE IN PREDICTING GLOMERULAR FILTRATION RATE. ESTIMATED GFR IS NOT APPLICABLE FOR DIALYSIS PATIENTS. Specimen moderately ictericHEPATIC FUNCTION [id number] 05:58:00 Test Item Value Reference Range Comments TOTAL PROTEIN (BEAKER) (test xclu=111) 5.9 gm/dL 6.0-8.3 ALBUMIN (BEAKER) (test xgxu=7410) 3.4 g/dL 3.5-5.0 BILIRUBIN TOTAL (BEAKER) (test ajcx=584) 5.6 mg/dL 0.2-1.2 BILIRUBIN DIRECT (BEAKER) (test mnun=842) 2.6 mg/dL 0.1-0.5 ALKALINE PHOSPHATASE (BEAKER) (test jppf=612) 50 U/L 40-150 AST (SGOT) (BEAKER) (test xpct=969) 30 U/L 5-34 ALT (SGPT) (BEAKER) (test kckn=935) 9 U/L 6-55 Specimen moderately ictericPROTHROMBIN [id number] 05:31:00 Test Item Value Reference Range Comments PROTIME (BEAKER) (test oqsd=340) 29.0 seconds 11.7-14.7 INR (BEAKER) (test uwvi=359) 2.7 <=5.9 RECOMMENDED COUMADIN/WARFARIN INR THERAPY RANGESSTANDARD DOSE: 2.0 - 3.0 Includes: PROPHYLAXIS forvenous thrombosis, systemic embolization; TREATMENT for venous thrombosis and/or pulmonary embolus.HIGH RISK: Target INR is 2.5-3.5 for patients with mechanical heart valves.ANAEROBIC [id number] 05:15:00 Test Item Value Reference Range Comments CULTURE (BEAKER) (test jpsk=2862) No anaerobes isolated BLOOD [id number] 00:00:00 Test Item Value Reference Range Comments CULTURE (BEAKER) (test jjwr=2408) No growth in 5 days BLOOD [id number] 00:00:00 Test Item Value Reference Range Comments CULTURE (BEAKER) (test hlbq=6305) No growth in 5 days URINALYSIS W/ REFLEX URINE [id number] 08:28:00 Test Item Value Reference Range Comments COLOR (BEAKER) (test kjhp=572) Yellow CLARITY (BEAKER) (test knwh=449) Clear SPECIFIC GRAVITY UA (BEAKER) (test ygvy=308) 1.006 1.001-1.035 PH UA (BEAKER) (test embj=620) 6.5 5.0-8.0 PROTEIN UA (BEAKER) (test khyo=821) Negative Negative GLUCOSE UA (BEAKER) (test xfbt=605) Negative Negative KETONES UA (BEAKER) (test aqag=888) Negative Negative BILIRUBIN UA (BEAKER) (test suzi=523) Negative Negative BLOOD UA (BEAKER) (test lqlq=165) Negative Negative NITRITE UA (BEAKER) (test jcgj=741) Negative Negative LEUKOCYTE ESTERASE UA (BEAKER) (test nzza=056) Small Negative UROBILINOGEN UA (BEAKER) (test hhfs=996) 0.2 mg/dL 0.2-1.0 RBC UA (BEAKER) (test wdsj=520) 1 /HPF WBC UA (BEAKER) (test vmmr=742) 6 /HPF BACTERIA (BEAKER) (test txbm=162) Rare SOURCE(BEAKER) (test ssko=2079) CBC W/PLT COUNT & AUTO [id number] 07:21:00 Test Item Value Reference Range Comments WHITE BLOOD CELL COUNT (BEAKER) (test ezre=227) 5.9 K/ L 4.0-10.0 RED BLOOD CELL COUNT (BEAKER) (test obgh=381) 2.12 M/ L 4.20-5.80 HEMOGLOBIN (BEAKER) (test jfpl=975) 7.3 GM/DL 13.0-16.8 HEMATOCRIT (BEAKER) (test wgpf=671) 22.2 % 40.0-50.0 MEAN CORPUSCULAR VOLUME (BEAKER) (test mrwf=150) 105.0 fL 82.0-98.0 MEAN CORPUSCULAR HEMOGLOBIN (BEAKER) (test 34.2 pg 27.0-33.0 chvf=805) MEAN CORPUSCULAR HEMOGLOBIN CONC (BEAKER) (test 32.7 GM/DL 32.0-36.0 mpqz=937) RED CELL DISTRIBUTION WIDTH (BEAKER) (test 13.1 % 10.3-14.2 bzap=270) PLATELET COUNT (BEAKER) (test fiuu=853) 80 K/CU MM 150-430 MEAN PLATELET VOLUME (BEAKER) (test bomi=234) 6.5 fL 6.5-10.5 NUCLEATED RED BLOOD CELLS (BEAKER) (test 0 /100 WBC 0-0 keqk=554) NEUTROPHILS RELATIVE PERCENT (BEAKER) (test 67 % zvfv=473) LYMPHOCYTES RELATIVE PERCENT (BEAKER) (test 14 % mazs=072) MONOCYTES RELATIVE PERCENT (BEAKER) (test 14 % xuop=491) EOSINOPHILS RELATIVE PERCENT (BEAKER) (test 4 % wgon=546) BASOPHILS RELATIVE PERCENT (BEAKER) (test 0 % vgxi=543) NEUTROPHILS ABSOLUTE COUNT (BEAKER) (test 3.97 K/ L 1.80-8.00 pwti=312) LYMPHOCYTES ABSOLUTE COUNT (BEAKER) (test 0.85 K/ L 1.48-4.50 ktmf=028) MONOCYTES ABSOLUTE COUNT (BEAKER) (test xglh=838) 0.81 K/ L 0.00-1.30 EOSINOPHILS ABSOLUTE COUNT (BEAKER) (test 0.25 K/ L 0.00-0.50 osgi=326) BASOPHILS ABSOLUTE COUNT (BEAKER) (test cdzo=871) 0.03 K/ L 0.00-0.20 [id number] 06:35:00 Test Item Value Reference Range Comments PHOSPHORUS (BEAKER) (test mhdg=659) 3.5 mg/dL 2.3-4.7 [id number] 06:35:00 Test Item Value Reference Range Comments MAGNESIUM (BEAKER) (test mnis=713) 1.7 mg/dL 1.6-2.6 BASIC METABOLIC [id number] 06:35:00 Test Item Value Reference Range Comments SODIUM (BEAKER) (test 137 meq/L 136-145 nqiy=745) POTASSIUM (BEAKER) (test 4.0 meq/L 3.5-5.1 iequ=564) CHLORIDE (BEAKER) (test 109 meq/L 98-107 mnlf=497) CO2 (BEAKER) (test 20 meq/L 22-29 wrsm=135) BLOOD UREA NITROGEN 13 mg/dL 7-21 (BEAKER) (test jjrx=125) CREATININE (BEAKER) (test 1.56 mg/dL 0.57-1.25 ikjy=206) GLUCOSE RANDOM (BEAKER) 85 mg/dL 70-105 (test hhuz=003) CALCIUM (BEAKER) (test 8.4 mg/dL 8.4-10.2 xipw=694) EGFR (BEAKER) (test 47 mL/min/1.73 sq m ESTIMATED GFR IS NOT jrnj=7369) ACCURATE CREATININE CLEARANCE IN PREDICTING GLOMERULAR FILTRATION RATE. ESTIMATED GFR IS NOT APPLICABLE FOR DIALYSIS PATIENTS. Specimen moderately ictericHEPATIC FUNCTION [id number] 06:35:00 Test Item Value Reference Range Comments TOTAL PROTEIN (BEAKER) (test ztlo=992) 6.5 gm/dL 6.0-8.3 ALBUMIN (BEAKER) (test rhjk=0182) 3.8 g/dL 3.5-5.0 BILIRUBIN TOTAL (BEAKER) (test jtku=214) 6.1 mg/dL 0.2-1.2 BILIRUBIN DIRECT (BEAKER) (test tiyr=096) 2.9 mg/dL 0.1-0.5 ALKALINE PHOSPHATASE (BEAKER) (test cpin=258) 54 U/L 40-150 AST (SGOT) (BEAKER) (test odkd=774) 28 U/L 5-34 ALT (SGPT) (BEAKER) (test exzb=471) 7 U/L 6-55 Specimen moderately ictericPROTHROMBIN TIME/[id number] 06:06:00 Test Item Value Reference Range Comments PROTIME (BEAKER) (test jxjb=169) 26.1 seconds 11.7-14.7 INR (BEAKER) (test vqek=680) 2.4 <=5.9 RECOMMENDED COUMADIN/WARFARIN INR THERAPY RANGESSTANDARD DOSE: 2.0 - 3.0 Includes: PROPHYLAXIS forvenous thrombosis, systemic embolization; TREATMENT for venous thrombosis and/or pulmonary embolus.HIGH RISK: Target INR is 2.5-3.5 for patients with mechanical heart valves.CALCIUM, [id number] 06:06:00 Test Item Value Reference Range Comments CALCIUM IONIZED (BEAKER) (test coxe=893) 1.06 mmol/L 1.12-1.27 PH, BLOOD (BEAKER) (test sqdw=1004) 7.46 SURGICALLY OBTAINED CULTURE + GRAM [id number] 23:51:00 Test Item Value Reference Range Comments CULTURE (BEAKER) (test yqxj=0223) No growth GRAM STAIN RESULT (BEAKER) (test 1+ WBCs moyh=1227) GRAM STAIN RESULT (BEAKER) (test No organisms seen ncwx=62924) BODY FLUID CULTURE + GRAM [id number] 23:42:00 Test Item Value Reference Range Comments CULTURE (BEAKER) (test fiyb=4393) No growth GRAM STAIN RESULT (BEAKER) (test 1+ WBCs jfru=5812) GRAM STAIN RESULT (BEAKER) (test No organisms seen hbvn=17589) BODY FLUID CELL COUNT WITH [id number] 19:59:00 Test Item Value Reference Range Comments APPEARANCE FLUID (BEAKER) (test ejls=207) Hazy Clear COLOR FLUID (BEAKER) (test npho=633) Yellow Colorless, Straw RBC FLUID (BEAKER) (test ltqb=347) 2435 /cu mm <=1 ADJUSTED WBC FLUID (BEAKER) (test twio=9049) 441 /cu mm <=5 LINING CELLS (BEAKER) (test arje=1976) 9 /cu mm <=1 NEUTROPHILS FLUID (BEAKER) (test mxex=4250) 16 % LYMPHS FLUID (BEAKER) (test unsy=252) 10 % MONO/MACROPHAGE FLUID (BEAKER) (test uvry=442) 74 % EOSINOPHILS FLUID (BEAKER) (test mudw=018) 0 % BASO FLUID (BEAKER) (test fvqa=970) 0 % CONTAINER BODY FLUID (BEAKER) (test vxls=7604) EDTA Tube [id number] 11:01:00 Test Item Value Reference Range Comments PROCALCITONIN (BEAKER) (test lnzq=4832) 0.25 ng/mL <0.05 SEPSIS RISK (ng/mL)Low: 0.05-0.50Intermediate: 0.51-2.00High: & gt;=2.01CBC W/PLT COUNT & AUTO [id number] 08:40:00 Test Item Value Reference Range Comments WHITE BLOOD CELL COUNT (BEAKER) (test txit=877) 6.3 K/ L 4.0-10.0 RED BLOOD CELL COUNT (BEAKER) (test kpuj=237) 2.07 M/ L 4.20-5.80 HEMOGLOBIN (BEAKER) (test bowo=701) 7.1 GM/DL 13.0-16.8 HEMATOCRIT (BEAKER) (test iocd=481) 21.9 % 40.0-50.0 MEAN CORPUSCULAR VOLUME (BEAKER) (test mypf=061) 106.0 fL 82.0-98.0 MEAN CORPUSCULAR HEMOGLOBIN (BEAKER) (test 34.1 pg 27.0-33.0 xpni=883) MEAN CORPUSCULAR HEMOGLOBIN CONC (BEAKER) (test 32.2 GM/DL 32.0-36.0 jsqe=861) RED CELL DISTRIBUTION WIDTH (BEAKER) (test 13.1 % 10.3-14.2 zhuk=568) PLATELET COUNT (BEAKER) (test brgb=201) 78 K/CU MM 150-430 MEAN PLATELET VOLUME (BEAKER) (test xmnl=247) 6.6 fL 6.5-10.5 NUCLEATED RED BLOOD CELLS (BEAKER) (test 0 /100 WBC 0-0 gubd=880) NEUTROPHILS RELATIVE PERCENT (BEAKER) (test 73 % ibyp=788) LYMPHOCYTES RELATIVE PERCENT (BEAKER) (test 10 % bnfy=998) MONOCYTES RELATIVE PERCENT (BEAKER) (test 13 % ytke=704) EOSINOPHILS RELATIVE PERCENT (BEAKER) (test 4 % vsuc=542) BASOPHILS RELATIVE PERCENT (BEAKER) (test 0 % wwuq=679) NEUTROPHILS ABSOLUTE COUNT (BEAKER) (test 4.60 K/ L 1.80-8.00 yhnd=259) LYMPHOCYTES ABSOLUTE COUNT (BEAKER) (test 0.64 K/ L 1.48-4.50 zjay=310) MONOCYTES ABSOLUTE COUNT (BEAKER) (test cdxs=816) 0.81 K/ L 0.00-1.30 EOSINOPHILS ABSOLUTE COUNT (BEAKER) (test 0.23 K/ L 0.00-0.50 fcrn=785) BASOPHILS ABSOLUTE COUNT (BEAKER) (test vcpb=904) 0.01 K/ L 0.00-0.20 [id number] 06:50:00 Test Item Value Reference Range Comments PHOSPHORUS (BEAKER) (test kjxs=750) 3.0 mg/dL 2.3-4.7 [id number] 06:50:00 Test Item Value Reference Range Comments MAGNESIUM (BEAKER) (test lciz=953) 1.9 mg/dL 1.6-2.6 BASIC METABOLIC [id number] 06:50:00 Test Item Value Reference Range Comments SODIUM (BEAKER) (test 135 meq/L 136-145 rfug=909) POTASSIUM (BEAKER) (test 4.2 meq/L 3.5-5.1 ttae=311) CHLORIDE (BEAKER) (test 106 meq/L 98-107 attw=489) CO2 (BEAKER) (test 21 meq/L 22-29 qxng=794) BLOOD UREA NITROGEN 19 mg/dL 7-21 (BEAKER) (test copk=367) CREATININE (BEAKER) (test 1.62 mg/dL 0.57-1.25 csnk=295) GLUCOSE RANDOM (BEAKER) 98 mg/dL 70-105 (test cdfl=471) CALCIUM (BEAKER) (test 8.6 mg/dL 8.4-10.2 huwt=996) EGFR (BEAKER) (test 45 mL/min/1.73 sq m ESTIMATED GFR IS NOT apvl=2261) ACCURATE CREATININE CLEARANCE IN PREDICTING GLOMERULAR FILTRATION RATE. ESTIMATED GFR IS NOT APPLICABLE FOR DIALYSIS PATIENTS. Specimen moderately ictericHEPATIC FUNCTION [id number] 06:50:00 Test Item Value Reference Range Comments TOTAL PROTEIN (BEAKER) (test fgyz=288) 6.3 gm/dL 6.0-8.3 ALBUMIN (BEAKER) (test rhvc=1393) 3.7 g/dL 3.5-5.0 BILIRUBIN TOTAL (BEAKER) (test clcd=977) 6.2 mg/dL 0.2-1.2 BILIRUBIN DIRECT (BEAKER) (test aoac=158) 2.8 mg/dL 0.1-0.5 ALKALINE PHOSPHATASE (BEAKER) (test uqsl=519) 54 U/L 40-150 AST (SGOT) (BEAKER) (test rtmo=369) 29 U/L 5-34 ALT (SGPT) (BEAKER) (test lnvl=045) 8 U/L 6-55 Specimen moderately ictericCALCIUM, [id number] 06:48:00 Test Item Value Reference Range Comments CALCIUM IONIZED (BEAKER) (test wzlk=048) 1.12 mmol/L 1.12-1.27 PH, BLOOD (BEAKER) (test rxnz=1195) 7.33 PROTHROMBIN [id number] 06:24:00 Test Item Value Reference Range Comments PROTIME (BEAKER) (test mfyl=972) 25.4 seconds 11.7-14.7 INR (BEAKER) (test tsho=530) 2.3 <=5.9 RECOMMENDED COUMADIN/WARFARIN INR THERAPY RANGESSTANDARD DOSE: 2.0 - 3.0 Includes: PROPHYLAXIS forvenous thrombosis, systemic embolization; TREATMENT for venous thrombosis and/or pulmonary embolus.HIGH RISK: Target INR is 2.5-3.5 for patients with mechanical heart valves.[id number] 11:17:00 Test Item Value Reference Range Comments FIBRINOGEN LEVEL (BEAKER) (test avzr=426) 115 mg/dl 225-434 CALCIUM, [id number] 06:04:00 Test Item Value Reference Range Comments CALCIUM IONIZED (BEAKER) (test upds=264) 1.08 mmol/L 1.12-1.27 PH, BLOOD (BEAKER) (test swwl=5160) 7.41 CBC W/PLT COUNT & AUTO [id number] 05:28:00 Test Item Value Reference Range Comments WHITE BLOOD CELL COUNT (BEAKER) (test frnl=041) 5.6 K/ L 4.0-10.0 RED BLOOD CELL COUNT (BEAKER) (test ujpb=061) 2.00 M/ L 4.20-5.80 HEMOGLOBIN (BEAKER) (test ahxz=278) 7.2 GM/DL 13.0-16.8 HEMATOCRIT (BEAKER) (test dhxd=926) 21.2 % 40.0-50.0 MEAN CORPUSCULAR VOLUME (BEAKER) (test oqis=517) 106.0 fL 82.0-98.0 MEAN CORPUSCULAR HEMOGLOBIN (BEAKER) (test 36.0 pg 27.0-33.0 yxxo=455) MEAN CORPUSCULAR HEMOGLOBIN CONC (BEAKER) (test 34.0 GM/DL 32.0-36.0 izfh=651) RED CELL DISTRIBUTION WIDTH (BEAKER) (test 13.9 % 10.3-14.2 ktbs=623) PLATELET COUNT (BEAKER) (test onkz=473) 74 K/CU MM 150-430 MEAN PLATELET VOLUME (BEAKER) (test levh=813) 6.6 fL 6.5-10.5 NUCLEATED RED BLOOD CELLS (BEAKER) (test 0 /100 WBC 0-0 mfwr=578) NEUTROPHILS RELATIVE PERCENT (BEAKER) (test 66 % wjnf=070) LYMPHOCYTES RELATIVE PERCENT (BEAKER) (test 14 % xsdt=347) MONOCYTES RELATIVE PERCENT (BEAKER) (test 13 % yupy=826) EOSINOPHILS RELATIVE PERCENT (BEAKER) (test 7 % atog=466) BASOPHILS RELATIVE PERCENT (BEAKER) (test 0 % kgvp=735) NEUTROPHILS ABSOLUTE COUNT (BEAKER) (test 3.67 K/ L 1.80-8.00 wizz=785) LYMPHOCYTES ABSOLUTE COUNT (BEAKER) (test 0.80 K/ L 1.48-4.50 mszn=980) MONOCYTES ABSOLUTE COUNT (BEAKER) (test lkzv=547) 0.69 K/ L 0.00-1.30 EOSINOPHILS ABSOLUTE COUNT (BEAKER) (test 0.38 K/ L 0.00-0.50 qude=724) BASOPHILS ABSOLUTE COUNT (BEAKER) (test fgiw=680) 0.02 K/ L 0.00-0.20 0.00PROTHROMBIN [id number] 05:11:00 Test Item Value Reference Range Comments PROTIME (BEAKER) (test tucm=041) 25.9 seconds 11.7-14.7 INR (BEAKER) (test hahi=149) 2.4 <=5.9 RECOMMENDED COUMADIN/WARFARIN INR THERAPY RANGESSTANDARD DOSE: 2.0 - 3.0 Includes: PROPHYLAXIS forvenous thrombosis, systemic embolization; TREATMENT for venous thrombosis and/or pulmonary embolus.HIGH RISK: Target INR is 2.5-3.5 for patients with mechanical heart valves.[id number] 05:03:00 Test Item Value Reference Range Comments PHOSPHORUS (BEAKER) (test tgbp=253) 3.5 mg/dL 2.3-4.7 [id number] 05:03:00 Test Item Value Reference Range Comments MAGNESIUM (BEAKER) (test xrop=190) 1.7 mg/dL 1.6-2.6 BASIC METABOLIC [id number] 05:03:00 Test Item Value Reference Range Comments SODIUM (BEAKER) (test 135 meq/L 136-145 sbjd=850) POTASSIUM (BEAKER) (test 4.0 meq/L 3.5-5.1 zpen=702) CHLORIDE (BEAKER) (test 107 meq/L 98-107 pvgx=119) CO2 (BEAKER) (test 20 meq/L 22-29 uuol=465) BLOOD UREA NITROGEN 22 mg/dL 7-21 (BEAKER) (test gqxh=673) CREATININE (BEAKER) (test 1.77 mg/dL 0.57-1.25 zhrq=781) GLUCOSE RANDOM (BEAKER) 83 mg/dL 70-105 (test buua=959) CALCIUM (BEAKER) (test 8.3 mg/dL 8.4-10.2 snpn=146) EGFR (BEAKER) (test 41 mL/min/1.73 sq m ESTIMATED GFR IS NOT vray=4448) ACCURATE CREATININE CLEARANCE IN PREDICTING GLOMERULAR FILTRATION RATE. ESTIMATED GFR IS NOT APPLICABLE FOR DIALYSIS PATIENTS. Specimen moderately ictericHEPATIC FUNCTION [id number] 05:03:00 Test Item Value Reference Range Comments TOTAL PROTEIN (BEAKER) (test ijyf=500) 6.2 gm/dL 6.0-8.3 ALBUMIN (BEAKER) (test rman=0082) 3.7 g/dL 3.5-5.0 BILIRUBIN TOTAL (BEAKER) (test txta=475) 6.0 mg/dL 0.2-1.2 BILIRUBIN DIRECT (BEAKER) (test ikvr=464) 2.6 mg/dL 0.1-0.5 ALKALINE PHOSPHATASE (BEAKER) (test ysyu=071) 48 U/L 40-150 AST (SGOT) (BEAKER) (test ahju=985) 26 U/L 5-34 ALT (SGPT) (BEAKER) (test gdeg=349) 8 U/L 6-55 Specimen moderately ictericURINE [id number] 14:42:00 Test Item Value Reference Range Comments CULTURE (BEAKER) (test siuh=8636) No growth ANTI-NUCLEAR ANTIBODY (CHERYL)[id number] 13:32:00 Test Item Value Reference Range Comments ANTI-NUCLEAR ANTIBODY (CHERYL) (BEAKER) (test Negative Negative jqbh=880) PLATELET [id number] 06:30:00 Test Item Value Reference Range Comments PLATELET COUNT (BEAKER) (test zeyt=726) 104 K/CU MM 150-430 [id number] 06:22:00 Test Item Value Reference Range Comments FIBRINOGEN LEVEL (BEAKER) (test elym=291) 106 mg/dl 225-434 [id number] 06:16:00 Test Item Value Reference Range Comments PARTIAL THROMBOPLASTIN TIME (BEAKER) (test 48.1 seconds 22.5-36.0 aeol=020) PROTHROMBIN TIME/[id number] 06:15:00 Test Item Value Reference Range Comments PROTIME (BEAKER) (test innv=450) 23.5 seconds 11.7-14.7 INR (BEAKER) (test szij=079) 2.1 <=5.9 RECOMMENDED COUMADIN/WARFARIN INR THERAPY RANGESSTANDARD DOSE: 2.0 - 3.0 Includes: PROPHYLAXIS forvenous thrombosis, systemic embolization; TREATMENT for venous thrombosis and/or pulmonary embolus.HIGH RISK: Target INR is 2.5-3.5 for patients with mechanical heart valves.[id number] 06:12:00 Test Item Value Reference Range Comments MAGNESIUM (BEAKER) (test 2.0 mg/dL 1.6-2.6 Specimen slightly hemolyzed zvmk=531) [id number] 06:12:00 Test Item Value Reference Range Comments PHOSPHORUS (BEAKER) (test 5.0 mg/dL 2.3-4.7 Specimen slightly hemolyzed ovds=805) BASIC METABOLIC [id number] 06:12:00 Test Item Value Reference Range Comments SODIUM (BEAKER) (test 135 meq/L 136-145 dhaw=635) POTASSIUM (BEAKER) (test 4.7 meq/L 3.5-5.1 Specimen slightly ogot=198) hemolyzed CHLORIDE (BEAKER) (test 107 meq/L 98-107 zctn=405) CO2 (BEAKER) (test 20 meq/L 22-29 ilaq=146) BLOOD UREA NITROGEN 18 mg/dL 7-21 (BEAKER) (test bgtz=462) CREATININE (BEAKER) (test 1.74 mg/dL 0.57-1.25 Specimen slightly tbms=354) hemolyzed GLUCOSE RANDOM (BEAKER) 76 mg/dL 70-105 (test iutj=594) CALCIUM (BEAKER) (test 8.1 mg/dL 8.4-10.2 moih=742) EGFR (BEAKER) (test 42 mL/min/1.73 sq m ESTIMATED GFR IS NOT ofoo=7457) ACCURATE CREATININE CLEARANCE IN PREDICTING GLOMERULAR FILTRATION RATE. ESTIMATED GFR IS NOT APPLICABLE FOR DIALYSIS PATIENTS. Specimen moderately ictericHEPATIC FUNCTION [id number] 06:12:00 Test Item Value Reference Range Comments TOTAL PROTEIN (BEAKER) (test 6.6 gm/dL 6.0-8.3 Specimen slightly hemolyzed jaud=987) ALBUMIN (BEAKER) (test 3.7 g/dL 3.5-5.0 Specimen slightly hemolyzed ymmg=7113) BILIRUBIN TOTAL (BEAKER) (test 5.7 mg/dL 0.2-1.2 Specimen slightly hemolyzed orxl=413) BILIRUBIN DIRECT (BEAKER) (test 2.7 mg/dL 0.1-0.5 Specimen slightly hemolyzed cwel=915) ALKALINE PHOSPHATASE (BEAKER) 56 U/L 40-150 (test hrpo=243) AST (SGOT) (BEAKER) (test 29 U/L 5-34 Specimen slightly hemolyzed ewxo=660) ALT (SGPT) (BEAKER) (test 7 U/L 6-55 Specimen slightly hemolyzed qkjv=788) Specimen moderately ictericLACTIC ACID, VENOUS, WHOLE [id number] 06:04:00 Test Item Value Reference Range Comments LACTATE BLOOD VENOUS (2) (BEAKER) (test 1.0 mmol/L 0.5-2.2 gqlh=3017) Effective 02/28/2016: Units/Reference Range ChangeNew: 0.5-2.2 mmol/L Previous: 5 -20 mg/dLSpecimen moderately ictericCALCIUM, [id number] 05:56:00 Test Item Value Reference Range Comments CALCIUM IONIZED (BEAKER) (test xxkz=393) 1.00 mmol/L 1.12-1.27 PH, BLOOD (BEAKER) (test uyal=1770) 7.34 [id number] 21:34:00 Test Item Value Reference Range Comments FIBRINOGEN LEVEL (BEAKER) (test yfqn=400) 105 mg/dl 225-434 PLATELET [id number] 20:52:00 Test Item Value Reference Range Comments PLATELET COUNT (BEAKER) (test xbvf=606) 77 K/CU MM 150-430 PT/[id number] 20:51:00 Test Item Value Reference Range Comments PROTIME (BEAKER) (test zhfh=864) 21.1 seconds 11.7-14.7 INR (BEAKER) (test wveb=414) 1.8 <=5.9 PARTIAL THROMBOPLASTIN TIME (BEAKER) (test 47.3 seconds 22.5-36.0 mbkd=611) RECOMMENDED COUMADIN/WARFARIN INR THERAPY RANGESSTANDARD DOSE: 2.0 - 3.0 Includes: PROPHYLAXIS forvenous thrombosis, systemic embolization; TREATMENT for venous thrombosis and/or pulmonary embolus.HIGH RISK: Target INR is 2.5-3.5 for patients with mechanical heart valves.[id number] 20:51:00 Test Item Value Reference Range Comments PARTIAL THROMBOPLASTIN TIME (BEAKER) (test 47.3 seconds 22.5-36.0 kzfv=574) PROTHROMBIN TIME/[id number] 20:50:00 Test Item Value Reference Range Comments PROTIME (BEAKER) (test hmmm=272) 21.1 seconds 11.7-14.7 INR (BEAKER) (test rtsq=354) 1.8 <=5.9 RECOMMENDED COUMADIN/WARFARIN INR THERAPY RANGESSTANDARD DOSE: 2.0 - 3.0 Includes: PROPHYLAXIS forvenous thrombosis, systemic embolization; TREATMENT for venous thrombosis and/or pulmonary embolus.HIGH RISK: Target INR is 2.5-3.5 for patients with mechanical heart valves.[id number] 19:30:00 Test Item Value Reference Range Comments PARTIAL THROMBOPLASTIN TIME (BEAKER) (test 45.1 seconds 22.5-36.0 jnyy=201) PROTHROMBIN TIME/[id number] 19:29:00 Test Item Value Reference Range Comments PROTIME (BEAKER) (test rgmo=561) 28.2 seconds 11.7-14.7 INR (BEAKER) (test nuiz=432) 2.6 <=5.9 RECOMMENDED COUMADIN/WARFARIN INR THERAPY RANGESSTANDARD DOSE: 2.0 - 3.0 Includes: PROPHYLAXIS forvenous thrombosis, systemic embolization; TREATMENT for venous thrombosis and/or pulmonary embolus.HIGH RISK: Target INR is 2.5-3.5 for patients with mechanical heart valves.BODY FLUID CELL COUNT WITH [id number] 18:53:00 Test Item Value Reference Range Comments APPEARANCE FLUID (BEAKER) (test xwms=409) Hazy Clear COLOR FLUID (BEAKER) (test vzjy=198) Yellow Colorless, Straw RBC FLUID (BEAKER) (test xbpu=682) 900 /cu mm <=1 ADJUSTED WBC FLUID (BEAKER) (test olhk=5858) 306 /cu mm <=5 LINING CELLS (BEAKER) (test xeky=9105) 64 /cu mm <=1 NEUTROPHILS FLUID (BEAKER) (test xnbo=5618) 4 % LYMPHS FLUID (BEAKER) (test pird=044) 18 % MONO/MACROPHAGE FLUID (BEAKER) (test hlud=947) 78 % EOSINOPHILS FLUID (BEAKER) (test rbrp=894) 0 % BASO FLUID (BEAKER) (test doai=298) 0 % CONTAINER BODY FLUID (BEAKER) (test imvt=5929) EDTA Tube [id number] 16:56:00 Test Item Value Reference Range Comments AMYLASE (BEAKER) (test xhua=718) 37 U/L 25-125 Specimen moderately ictericCOMPREHENSIVE METABOLIC [id number] 16:56:00 Test Item Value Reference Range Comments TOTAL PROTEIN (BEAKER) 6.1 gm/dL 6.0-8.3 (test fycf=814) ALBUMIN (BEAKER) (test 3.2 g/dL 3.5-5.0 drch=9698) ALKALINE PHOSPHATASE 67 U/L 40-150 (BEAKER) (test uyux=010) BILIRUBIN TOTAL (BEAKER) 5.7 mg/dL 0.2-1.2 (test rvkd=591) SODIUM (BEAKER) (test 134 meq/L 136-145 lsvf=963) POTASSIUM (BEAKER) (test 3.8 meq/L 3.5-5.1 plfu=536) CHLORIDE (BEAKER) (test 106 meq/L 98-107 uird=653) CO2 (BEAKER) (test 19 meq/L 22-29 rcdp=260) BLOOD UREA NITROGEN 18 mg/dL 7-21 (BEAKER) (test acpn=209) CREATININE (BEAKER) (test 1.52 mg/dL 0.57-1.25 ator=756) GLUCOSE RANDOM (BEAKER) 112 mg/dL 70-105 (test eyzw=840) CALCIUM (BEAKER) (test 8.3 mg/dL 8.4-10.2 sqte=206) AST (SGOT) (BEAKER) (test 28 U/L 5-34 ueyn=229) ALT (SGPT) (BEAKER) (test 10 U/L 6-55 skfc=309) EGFR (BEAKER) (test 49 mL/min/1.73 sq m ESTIMATED GFR IS NOT slme=3237) ACCURATE CREATININE CLEARANCE IN PREDICTING GLOMERULAR FILTRATION RATE. ESTIMATED GFR IS NOT APPLICABLE FOR DIALYSIS PATIENTS. Specimen moderately [id number] 16:56:00 Test Item Value Reference Range Comments LIPASE (BEAKER) (test sdtb=017) 52 U/L 8-78 Specimen moderately ictericCBC W/PLT COUNT & AUTO [id number] 16: 27:00 Test Item Value Reference Range Comments WHITE BLOOD CELL COUNT (BEAKER) (test tuxu=828) 3.7 K/ L 4.0-10.0 RED BLOOD CELL COUNT (BEAKER) (test othq=535) 2.16 M/ L 4.20-5.80 HEMOGLOBIN (BEAKER) (test gqpu=209) 7.8 GM/DL 13.0-16.8 HEMATOCRIT (BEAKER) (test yncj=937) 23.1 % 40.0-50.0 MEAN CORPUSCULAR VOLUME (BEAKER) (test dykt=589) 107.0 fL 82.0-98.0 MEAN CORPUSCULAR HEMOGLOBIN (BEAKER) (test 36.0 pg 27.0-33.0 zrqt=283) MEAN CORPUSCULAR HEMOGLOBIN CONC (BEAKER) (test 33.6 GM/DL 32.0-36.0 jgrh=454) RED CELL DISTRIBUTION WIDTH (BEAKER) (test 13.9 % 10.3-14.2 sxtr=028) PLATELET COUNT (BEAKER) (test yreq=566) 78 K/CU MM 150-430 MEAN PLATELET VOLUME (BEAKER) (test uwmj=206) 6.2 fL 6.5-10.5 NUCLEATED RED BLOOD CELLS (BEAKER) (test 0 /100 WBC 0-0 effa=947) NEUTROPHILS RELATIVE PERCENT (BEAKER) (test 50 % yxwo=756) LYMPHOCYTES RELATIVE PERCENT (BEAKER) (test 25 % xvbr=340) MONOCYTES RELATIVE PERCENT (BEAKER) (test 19 % fqkq=063) EOSINOPHILS RELATIVE PERCENT (BEAKER) (test 6 % kltz=951) BASOPHILS RELATIVE PERCENT (BEAKER) (test 1 % almj=518) NEUTROPHILS ABSOLUTE COUNT (BEAKER) (test 1.82 K/ L 1.80-8.00 cjtl=212) LYMPHOCYTES ABSOLUTE COUNT (BEAKER) (test 0.91 K/ L 1.48-4.50 hhqq=236) MONOCYTES ABSOLUTE COUNT (BEAKER) (test rzxv=157) 0.69 K/ L 0.00-1.30 EOSINOPHILS ABSOLUTE COUNT (BEAKER) (test 0.21 K/ L 0.00-0.50 gtwp=269) BASOPHILS ABSOLUTE COUNT (BEAKER) (test ebix=737) 0.02 K/ L 0.00-0.20 0.00HEPATIC FUNCTION [id number] 08:34:00 Test Item Value Reference Range Comments TOTAL PROTEIN (BEAKER) (test dwng=941) 5.9 gm/dL 6.0-8.3 ALBUMIN (BEAKER) (test dqfh=7851) 3.2 g/dL 3.5-5.0 BILIRUBIN TOTAL (BEAKER) (test qrjo=755) 5.4 mg/dL 0.2-1.2 BILIRUBIN DIRECT (BEAKER) (test udue=213) 2.5 mg/dL 0.1-0.5 ALKALINE PHOSPHATASE (BEAKER) (test rtyz=989) 60 U/L 40-150 AST (SGOT) (BEAKER) (test ibmz=426) 28 U/L 5-34 ALT (SGPT) (BEAKER) (test kglk=692) 10 U/L 6-55 Specimen moderately [id number] 08:16:00 Test Item Value Reference Range Comments PHOSPHORUS (BEAKER) (test iqwz=000) 3.0 mg/dL 2.3-4.7 [id number] 08:16:00 Test Item Value Reference Range Comments MAGNESIUM (BEAKER) (test vuhz=209) 1.6 mg/dL 1.6-2.6 BASIC METABOLIC [id number] 08:16:00 Test Item Value Reference Range Comments SODIUM (BEAKER) (test 133 meq/L 136-145 aehl=999) POTASSIUM (BEAKER) (test 3.6 meq/L 3.5-5.1 pplm=100) CHLORIDE (BEAKER) (test 105 meq/L 98-107 rmwi=812) CO2 (BEAKER) (test 20 meq/L 22-29 brxr=334) BLOOD UREA NITROGEN 18 mg/dL 7-21 (BEAKER) (test lywl=282) CREATININE (BEAKER) (test 1.54 mg/dL 0.57-1.25 lfwb=292) GLUCOSE RANDOM (BEAKER) 70 mg/dL 70-105 (test zucx=724) CALCIUM (BEAKER) (test 8.2 mg/dL 8.4-10.2 pddo=390) EGFR (BEAKER) (test 48 mL/min/1.73 sq m ESTIMATED GFR IS NOT prdr=4856) ACCURATE CREATININE CLEARANCE IN PREDICTING GLOMERULAR FILTRATION RATE. ESTIMATED GFR IS NOT APPLICABLE FOR DIALYSIS PATIENTS. Specimen moderately ictericCBC W/PLT COUNT & AUTO [id number] 08: 06:00 Test Item Value Reference Range Comments WHITE BLOOD CELL COUNT (BEAKER) (test bqbb=343) 3.4 K/ L 4.0-10.0 RED BLOOD CELL COUNT (BEAKER) (test xvhi=107) 2.03 M/ L 4.20-5.80 HEMOGLOBIN (BEAKER) (test wsnt=561) 7.3 GM/DL 13.0-16.8 HEMATOCRIT (BEAKER) (test wflz=378) 21.6 % 40.0-50.0 MEAN CORPUSCULAR VOLUME (BEAKER) (test sevu=151) 106.0 fL 82.0-98.0 MEAN CORPUSCULAR HEMOGLOBIN (BEAKER) (test 35.8 pg 27.0-33.0 ccah=798) MEAN CORPUSCULAR HEMOGLOBIN CONC (BEAKER) (test 33.7 GM/DL 32.0-36.0 ikyx=212) RED CELL DISTRIBUTION WIDTH (BEAKER) (test 13.5 % 10.3-14.2 bfxo=461) PLATELET COUNT (BEAKER) (test hcku=765) 82 K/CU MM 150-430 MEAN PLATELET VOLUME (BEAKER) (test jcak=404) 6.7 fL 6.5-10.5 NUCLEATED RED BLOOD CELLS (BEAKER) (test 0 /100 WBC 0-0 grwo=785) NEUTROPHILS RELATIVE PERCENT (BEAKER) (test 50 % zghs=108) LYMPHOCYTES RELATIVE PERCENT (BEAKER) (test 25 % cvwr=154) MONOCYTES RELATIVE PERCENT (BEAKER) (test 19 % ilvn=616) EOSINOPHILS RELATIVE PERCENT (BEAKER) (test 5 % iydp=984) BASOPHILS RELATIVE PERCENT (BEAKER) (test 1 % birg=941) NEUTROPHILS ABSOLUTE COUNT (BEAKER) (test 1.69 K/ L 1.80-8.00 nurj=855) LYMPHOCYTES ABSOLUTE COUNT (BEAKER) (test 0.83 K/ L 1.48-4.50 pgoc=667) MONOCYTES ABSOLUTE COUNT (BEAKER) (test qabu=342) 0.65 K/ L 0.00-1.30 EOSINOPHILS ABSOLUTE COUNT (BEAKER) (test 0.17 K/ L 0.00-0.50 pkjd=525) BASOPHILS ABSOLUTE COUNT (BEAKER) (test fuqm=668) 0.04 K/ L 0.00-0.20 0.00PROTHROMBIN [id number] 08:01:00 Test Item Value Reference Range Comments PROTIME (BEAKER) (test togl=362) 27.6 seconds 11.7-14.7 INR (BEAKER) (test kuqu=212) 2.6 <=5.9 RECOMMENDED COUMADIN/WARFARIN INR THERAPY RANGESSTANDARD DOSE: 2.0 - 3.0 Includes: PROPHYLAXIS forvenous thrombosis, systemic embolization; TREATMENT for venous thrombosis and/or pulmonary embolus.HIGH RISK: Target INR is 2.5-3.5 for patients with mechanical heart valves.CALCIUM, [id number] 07:58:00 Test Item Value Reference Range Comments CALCIUM IONIZED (BEAKER) (test ptbk=901) 1.00 mmol/L 1.12-1.27 PH, BLOOD (BEAKER) (test ppzs=8358) 7.53 URINALYSIS W/ [id number] 18:42:00 Test Item Value Reference Range Comments COLOR (BEAKER) (test ibxd=525) Yellow CLARITY (BEAKER) (test vnda=903) Clear SPECIFIC GRAVITY UA (BEAKER) (test 1.009 1.001-1.035 sljl=167) PH UA (BEAKER) (test wgor=669) 7.5 5.0-8.0 PROTEIN UA (BEAKER) (test fcfc=237) Negative Negative GLUCOSE UA (BEAKER) (test ycpc=951) Negative Negative KETONES UA (BEAKER) (test caet=247) Negative Negative BILIRUBIN UA (BEAKER) (test ocjm=553) Negative Negative BLOOD UA (BEAKER) (test gkoe=950) Negative Negative NITRITE UA (BEAKER) (test tdju=974) Negative Negative LEUKOCYTE ESTERASE UA (BEAKER) (test Negative Negative oayt=440) UROBILINOGEN UA (BEAKER) (test pppx=156) 3.0 mg/dL 0.2-1.0 RBC UA (BEAKER) (test uonk=410) 6 /HPF WBC UA (BEAKER) (test srxk=657) 1 /HPF SOURCE(BEAKER) (test npes=1541) Urine, Clean Catch PROTHROMBIN [id number] 15:13:00 Test Item Value Reference Range Comments PROTIME (BEAKER) (test ipuz=505) 31.4 seconds 11.7-14.7 INR (BEAKER) (test ampf=603) 3.0 <=5.9 RECOMMENDED COUMADIN/WARFARIN INR THERAPY RANGESSTANDARD DOSE: 2.0 - 3.0 Includes: PROPHYLAXIS forvenous thrombosis, systemic embolization; TREATMENT for venous thrombosis and/or pulmonary embolus.HIGH RISK: Target INR is 2.5-3.5 for patients with mechanical heart valves.Draw after vitamin K administrationCBC W/PLT COUNT & AUTO [id number] 07:02:00 Test Item Value Reference Range Comments WHITE BLOOD CELL COUNT (BEAKER) (test gkbw=042) 3.0 K/ L 4.0-10.0 RED BLOOD CELL COUNT (BEAKER) (test axwf=854) 2.21 M/ L 4.20-5.80 HEMOGLOBIN (BEAKER) (test yiji=109) 7.5 GM/DL 13.0-16.8 HEMATOCRIT (BEAKER) (test wskr=638) 23.5 % 40.0-50.0 MEAN CORPUSCULAR VOLUME (BEAKER) (test pobq=181) 106.0 fL 82.0-98.0 MEAN CORPUSCULAR HEMOGLOBIN (BEAKER) (test 34.0 pg 27.0-33.0 dyzu=273) MEAN CORPUSCULAR HEMOGLOBIN CONC (BEAKER) (test 32.0 GM/DL 32.0-36.0 bocl=539) RED CELL DISTRIBUTION WIDTH (BEAKER) (test 13.0 % 10.3-14.2 okfr=827) PLATELET COUNT (BEAKER) (test qauy=897) 81 K/CU MM 150-430 MEAN PLATELET VOLUME (BEAKER) (test xzyo=940) 6.3 fL 6.5-10.5 NUCLEATED RED BLOOD CELLS (BEAKER) (test 0 /100 WBC 0-0 patr=451) NEUTROPHILS RELATIVE PERCENT (BEAKER) (test 52 % zohw=585) LYMPHOCYTES RELATIVE PERCENT (BEAKER) (test 24 % kqsn=013) MONOCYTES RELATIVE PERCENT (BEAKER) (test 20 % ekhy=552) EOSINOPHILS RELATIVE PERCENT (BEAKER) (test 3 % pmpc=821) BASOPHILS RELATIVE PERCENT (BEAKER) (test 1 % yfdu=453) NEUTROPHILS ABSOLUTE COUNT (BEAKER) (test 1.53 K/ L 1.80-8.00 zcwy=300) LYMPHOCYTES ABSOLUTE COUNT (BEAKER) (test 0.71 K/ L 1.48-4.50 budk=162) MONOCYTES ABSOLUTE COUNT (BEAKER) (test lcgg=599) 0.60 K/ L 0.00-1.30 EOSINOPHILS ABSOLUTE COUNT (BEAKER) (test 0.10 K/ L 0.00-0.50 rmxw=179) BASOPHILS ABSOLUTE COUNT (BEAKER) (test pbfd=991) 0.03 K/ L 0.00-0.20 0.00BASIC METABOLIC [id number] 06:29:00 Test Item Value Reference Range Comments SODIUM (BEAKER) (test 135 meq/L 136-145 zkck=241) POTASSIUM (BEAKER) (test 4.0 meq/L 3.5-5.1 obeh=638) CHLORIDE (BEAKER) (test 106 meq/L 98-107 ereg=687) CO2 (BEAKER) (test 22 meq/L 22-29 jwyt=166) BLOOD UREA NITROGEN 17 mg/dL 7-21 (BEAKER) (test olaz=877) CREATININE (BEAKER) (test 1.46 mg/dL 0.57-1.25 kqta=611) GLUCOSE RANDOM (BEAKER) 75 mg/dL 70-105 (test zzgu=564) CALCIUM (BEAKER) (test 8.0 mg/dL 8.4-10.2 czjb=406) EGFR (BEAKER) (test 51 mL/min/1.73 sq m ESTIMATED GFR IS NOT slof=5018) ACCURATE CREATININE CLEARANCE IN PREDICTING GLOMERULAR FILTRATION RATE. ESTIMATED GFR IS NOT APPLICABLE FOR DIALYSIS PATIENTS. Specimen moderately ictericHEPATIC FUNCTION [id number] 06:29:00 Test Item Value Reference Range Comments TOTAL PROTEIN (BEAKER) (test pjwv=394) 5.9 gm/dL 6.0-8.3 ALBUMIN (BEAKER) (test beov=5576) 3.0 g/dL 3.5-5.0 BILIRUBIN TOTAL (BEAKER) (test woip=914) 5.4 mg/dL 0.2-1.2 BILIRUBIN DIRECT (BEAKER) (test ucfs=972) 2.7 mg/dL 0.1-0.5 ALKALINE PHOSPHATASE (BEAKER) (test qoph=667) 65 U/L 40-150 AST (SGOT) (BEAKER) (test cefw=761) 27 U/L 5-34 ALT (SGPT) (BEAKER) (test bsos=567) 7 U/L 6-55 Specimen moderately ictericPROTHROMBIN [id number] 06:23:00 Test Item Value Reference Range Comments PROTIME (BEAKER) (test fiey=026) 31.2 seconds 11.7-14.7 INR (BEAKER) (test jmfl=035) 3.0 <=5.9 RECOMMENDED COUMADIN/WARFARIN INR THERAPY RANGESSTANDARD DOSE: 2.0 - 3.0 Includes: PROPHYLAXIS forvenous thrombosis, systemic embolization; TREATMENT for venous thrombosis and/or pulmonary embolus.HIGH RISK: Target INR is 2.5-3.5 for patients with mechanical heart valves.CBC W/PLT COUNT & AUTO [id number] 06:26:00 Test Item Value Reference Range Comments WHITE BLOOD CELL COUNT (BEAKER) (test dnqf=695) 3.0 K/ L 4.0-10.0 RED BLOOD CELL COUNT (BEAKER) (test zvma=688) 2.16 M/ L 4.20-5.80 HEMOGLOBIN (BEAKER) (test etqy=386) 7.4 GM/DL 13.0-16.8 HEMATOCRIT (BEAKER) (test hhng=264) 23.1 % 40.0-50.0 MEAN CORPUSCULAR VOLUME (BEAKER) (test skbb=179) 107.0 fL 82.0-98.0 MEAN CORPUSCULAR HEMOGLOBIN (BEAKER) (test 34.4 pg 27.0-33.0 cezq=724) MEAN CORPUSCULAR HEMOGLOBIN CONC (BEAKER) (test 32.1 GM/DL 32.0-36.0 smeb=919) RED CELL DISTRIBUTION WIDTH (BEAKER) (test 13.1 % 10.3-14.2 vhxz=031) PLATELET COUNT (BEAKER) (test mwkd=354) 72 K/CU MM 150-430 MEAN PLATELET VOLUME (BEAKER) (test hssg=781) 6.1 fL 6.5-10.5 NUCLEATED RED BLOOD CELLS (BEAKER) (test 0 /100 WBC 0-0 aybm=864) NEUTROPHILS RELATIVE PERCENT (BEAKER) (test 58 % ejnt=387) LYMPHOCYTES RELATIVE PERCENT (BEAKER) (test 21 % ignl=047) MONOCYTES RELATIVE PERCENT (BEAKER) (test 15 % fpuj=149) EOSINOPHILS RELATIVE PERCENT (BEAKER) (test 4 % wxwt=278) BASOPHILS RELATIVE PERCENT (BEAKER) (test 1 % ipzq=163) NEUTROPHILS ABSOLUTE COUNT (BEAKER) (test 1.73 K/ L 1.80-8.00 wggy=971) LYMPHOCYTES ABSOLUTE COUNT (BEAKER) (test 0.64 K/ L 1.48-4.50 cffe=773) MONOCYTES ABSOLUTE COUNT (BEAKER) (test mplb=154) 0.45 K/ L 0.00-1.30 EOSINOPHILS ABSOLUTE COUNT (BEAKER) (test 0.13 K/ L 0.00-0.50 dyzc=024) BASOPHILS ABSOLUTE COUNT (BEAKER) (test hozl=615) 0.02 K/ L 0.00-0.20 0.00BASIC METABOLIC [id number] 06:24:00 Test Item Value Reference Range Comments SODIUM (BEAKER) (test 134 meq/L 136-145 ytxs=450) POTASSIUM (BEAKER) (test 3.7 meq/L 3.5-5.1 luuo=751) CHLORIDE (BEAKER) (test 105 meq/L 98-107 gjma=990) CO2 (BEAKER) (test 21 meq/L 22-29 lvwb=903) BLOOD UREA NITROGEN 18 mg/dL 7-21 (BEAKER) (test mcer=968) CREATININE (BEAKER) (test 1.53 mg/dL 0.57-1.25 nxuo=681) GLUCOSE RANDOM (BEAKER) 103 mg/dL 70-105 (test rcyz=502) CALCIUM (BEAKER) (test 7.6 mg/dL 8.4-10.2 kqjr=688) EGFR (BEAKER) (test 48 mL/min/1.73 sq m ESTIMATED GFR IS NOT xpmd=4468) ACCURATE CREATININE CLEARANCE IN PREDICTING GLOMERULAR FILTRATION RATE. ESTIMATED GFR IS NOT APPLICABLE FOR DIALYSIS PATIENTS. Specimen moderately ictericHEPATIC FUNCTION [id number] 06:19:00 Test Item Value Reference Range Comments TOTAL PROTEIN (BEAKER) (test uehu=425) 5.6 gm/dL 6.0-8.3 ALBUMIN (BEAKER) (test xsjr=0441) 2.4 g/dL 3.5-5.0 BILIRUBIN TOTAL (BEAKER) (test mqql=177) 4.8 mg/dL 0.2-1.2 BILIRUBIN DIRECT (BEAKER) (test odmq=102) 2.6 mg/dL 0.1-0.5 ALKALINE PHOSPHATASE (BEAKER) (test msrp=425) 70 U/L 40-150 AST (SGOT) (BEAKER) (test ldbe=408) 28 U/L 5-34 ALT (SGPT) (BEAKER) (test qcjo=384) 11 U/L 6-55 Specimen moderately ictericPROTHROMBIN [id number] 06:00:00 Test Item Value Reference Range Comments PROTIME (BEAKER) (test grbn=565) 36.7 seconds 11.7-14.7 INR (BEAKER) (test fyxn=010) 3.7 <=5.9 RECOMMENDED COUMADIN/WARFARIN INR THERAPY RANGESSTANDARD DOSE: 2.0 - 3.0 Includes: PROPHYLAXIS forvenous thrombosis, systemic embolization; TREATMENT for venous thrombosis and/or pulmonary embolus.HIGH RISK: Target INR is 2.5-3.5 for patients with mechanical heart valves.BODY FLUID CULTURE + GRAM [id number] 00:51:00 Test Item Value Reference Range Comments CULTURE (BEAKER) (test xvqz=2737) No growth GRAM STAIN RESULT (BEAKER) (test 3+ WBCs xyib=4677) GRAM STAIN RESULT (BEAKER) (test No organisms seen ppbr=80008) BLOOD [id number] 17:08:00 Test Item Value Reference Range Comments CULTURE (BEAKER) (test vttd=9186) No growth in 5 days BLOOD [id number] 17:06:00 Test Item Value Reference Range Comments CULTURE (BEAKER) (test cwwn=1591) No growth in 5 days CBC W/PLT COUNT & AUTO [id number] 07:05:00 Test Item Value Reference Range Comments WHITE BLOOD CELL COUNT (BEAKER) (test owtr=757) 3.5 K/ L 4.0-10.0 RED BLOOD CELL COUNT (BEAKER) (test pqwc=088) 2.16 M/ L 4.20-5.80 HEMOGLOBIN (BEAKER) (test cgcn=362) 7.8 GM/DL 13.0-16.8 HEMATOCRIT (BEAKER) (test vjgp=136) 23.9 % 40.0-50.0 MEAN CORPUSCULAR VOLUME (BEAKER) (test fnms=651) 111.0 fL 82.0-98.0 MEAN CORPUSCULAR HEMOGLOBIN (BEAKER) (test 36.3 pg 27.0-33.0 exmj=486) MEAN CORPUSCULAR HEMOGLOBIN CONC (BEAKER) (test 32.8 GM/DL 32.0-36.0 hpxi=615) RED CELL DISTRIBUTION WIDTH (BEAKER) (test 13.9 % 10.3-14.2 gpbj=849) PLATELET COUNT (BEAKER) (test igzb=948) 72 K/CU MM 150-430 MEAN PLATELET VOLUME (BEAKER) (test ixwi=600) 6.4 fL 6.5-10.5 NUCLEATED RED BLOOD CELLS (BEAKER) (test 0 /100 WBC 0-0 knjq=869) NEUTROPHILS RELATIVE PERCENT (BEAKER) (test 51 % rxan=491) LYMPHOCYTES RELATIVE PERCENT (BEAKER) (test 25 % jbak=750) MONOCYTES RELATIVE PERCENT (BEAKER) (test 18 % eodw=488) EOSINOPHILS RELATIVE PERCENT (BEAKER) (test 6 % zite=607) BASOPHILS RELATIVE PERCENT (BEAKER) (test 0 % lbil=739) NEUTROPHILS ABSOLUTE COUNT (BEAKER) (test 1.77 K/ L 1.80-8.00 jzoj=406) LYMPHOCYTES ABSOLUTE COUNT (BEAKER) (test 0.87 K/ L 1.48-4.50 ezvq=792) MONOCYTES ABSOLUTE COUNT (BEAKER) (test vewt=174) 0.62 K/ L 0.00-1.30 EOSINOPHILS ABSOLUTE COUNT (BEAKER) (test 0.22 K/ L 0.00-0.50 jkqx=987) BASOPHILS ABSOLUTE COUNT (BEAKER) (test cuek=209) 0.01 K/ L 0.00-0.20 0.00BASIC METABOLIC [id number] 06:54:00 Test Item Value Reference Range Comments SODIUM (BEAKER) (test 137 meq/L 136-145 vbjo=863) POTASSIUM (BEAKER) (test 3.8 meq/L 3.5-5.1 knhb=592) CHLORIDE (BEAKER) (test 109 meq/L 98-107 spip=551) CO2 (BEAKER) (test 21 meq/L 22-29 zseh=935) BLOOD UREA NITROGEN 17 mg/dL 7-21 (BEAKER) (test qecx=755) CREATININE (BEAKER) (test 1.60 mg/dL 0.57-1.25 pdor=627) GLUCOSE RANDOM (BEAKER) 76 mg/dL 70-105 (test iubx=789) CALCIUM (BEAKER) (test 7.5 mg/dL 8.4-10.2 nnvr=561) EGFR (BEAKER) (test 46 mL/min/1.73 sq m ESTIMATED GFR IS NOT otux=0360) ACCURATE CREATININE CLEARANCE IN PREDICTING GLOMERULAR FILTRATION RATE. ESTIMATED GFR IS NOT APPLICABLE FOR DIALYSIS PATIENTS. Specimen moderately ictericHEPATIC FUNCTION [id number] 06:53:00 Test Item Value Reference Range Comments TOTAL PROTEIN (BEAKER) (test kugf=183) 5.6 gm/dL 6.0-8.3 ALBUMIN (BEAKER) (test akzs=1672) 2.4 g/dL 3.5-5.0 BILIRUBIN TOTAL (BEAKER) (test epsa=222) 4.5 mg/dL 0.2-1.2 BILIRUBIN DIRECT (BEAKER) (test drfk=888) 2.7 mg/dL 0.1-0.5 ALKALINE PHOSPHATASE (BEAKER) (test ntwa=335) 74 U/L 40-150 AST (SGOT) (BEAKER) (test vhxr=547) 36 U/L 5-34 ALT (SGPT) (BEAKER) (test dfne=331) 13 U/L 6-55 Specimen moderately ictericB-TYPE NATRIURETIC FACTOR (BNP)[id number] 06:52:00 Test Item Value Reference Range Comments B-TYPE NATRIURETIC PEPTIDE (BEAKER) (test 446 pg/mL 0-100 nxsm=996) PROTHROMBIN [id number] 06:36:00 Test Item Value Reference Range Comments PROTIME (BEAKER) (test fkaq=563) 28.7 seconds 11.7-14.7 INR (BEAKER) (test mias=764) 2.7 <=5.9 RECOMMENDED COUMADIN/WARFARIN INR THERAPY RANGESSTANDARD DOSE: 2.0 - 3.0 Includes: PROPHYLAXIS forvenous thrombosis, systemic embolization; TREATMENT for venous thrombosis and/or pulmonary embolus.HIGH RISK: Target INR is 2.5-3.5 for patients with mechanical heart valves.EOSINOPHIL SMEAR, [id number] 21: 44:00 Test Item Value Reference Range Comments EOSINOPHIL SMEAR, URINE (BEAKER) (test No EOS seen No EOS seen mzhh=2575) CREATININE, RANDOM [id number] 18:02:00 Test Item Value Reference Range Comments CREATININE URINE (BEAKER) (test klgw=757) 96.3 mg/dL Reference Range: No NormalsSODIUM, RANDOM [id number] 18:02:00 Test Item Value Reference Range Comments SODIUM URINE (BEAKER) (test fqjm=703) 58 meq/L Reference Range: No NormalsURINALYSIS W/ [id number] 17:33:00 Test Item Value Reference Range Comments COLOR (BEAKER) (test jiwt=835) Yellow CLARITY (BEAKER) (test ofiz=184) Clear SPECIFIC GRAVITY UA (BEAKER) (test kfku=479) 1.009 1.001-1.035 PH UA (BEAKER) (test sefj=464) 6.0 5.0-8.0 PROTEIN UA (BEAKER) (test lljf=085) Negative Negative GLUCOSE UA (BEAKER) (test wonj=687) Negative Negative KETONES UA (BEAKER) (test tyrf=325) Negative Negative BILIRUBIN UA (BEAKER) (test kchs=425) Negative Negative BLOOD UA (BEAKER) (test ijch=240) Negative Negative NITRITE UA (BEAKER) (test qmvi=565) Negative Negative LEUKOCYTE ESTERASE UA (BEAKER) (test paaz=081) Negative Negative UROBILINOGEN UA (BEAKER) (test tpel=427) 4.0 mg/dL 0.2-1.0 RBC UA (BEAKER) (test vsbr=296) < /HPF WBC UA (BEAKER) (test gamd=282) 2 /HPF BACTERIA (BEAKER) (test pqdg=459) Rare SOURCE(BEAKER) (test leng=4604) CBC W/PLT COUNT & AUTO [id number] 06:53:00 Test Item Value Reference Range Comments WHITE BLOOD CELL COUNT (BEAKER) (test ctsl=505) 3.5 K/ L 4.0-10.0 RED BLOOD CELL COUNT (BEAKER) (test ccob=772) 2.17 M/ L 4.20-5.80 HEMOGLOBIN (BEAKER) (test usos=151) 7.9 GM/DL 13.0-16.8 HEMATOCRIT (BEAKER) (test oonr=736) 23.9 % 40.0-50.0 MEAN CORPUSCULAR VOLUME (BEAKER) (test whns=134) 110.0 fL 82.0-98.0 MEAN CORPUSCULAR HEMOGLOBIN (BEAKER) (test 36.1 pg 27.0-33.0 mxks=164) MEAN CORPUSCULAR HEMOGLOBIN CONC (BEAKER) (test 32.9 GM/DL 32.0-36.0 tlre=455) RED CELL DISTRIBUTION WIDTH (BEAKER) (test 14.0 % 10.3-14.2 mzpc=482) PLATELET COUNT (BEAKER) (test pmtp=411) 77 K/CU MM 150-430 MEAN PLATELET VOLUME (BEAKER) (test pibr=685) 6.1 fL 6.5-10.5 NUCLEATED RED BLOOD CELLS (BEAKER) (test 0 /100 WBC 0-0 wckp=442) NEUTROPHILS RELATIVE PERCENT (BEAKER) (test 56 % vijm=070) LYMPHOCYTES RELATIVE PERCENT (BEAKER) (test 20 % zhop=905) MONOCYTES RELATIVE PERCENT (BEAKER) (test 18 % iuwv=328) EOSINOPHILS RELATIVE PERCENT (BEAKER) (test 6 % kycp=951) BASOPHILS RELATIVE PERCENT (BEAKER) (test 1 % rljv=473) NEUTROPHILS ABSOLUTE COUNT (BEAKER) (test 1.95 K/ L 1.80-8.00 fgvd=707) LYMPHOCYTES ABSOLUTE COUNT (BEAKER) (test 0.69 K/ L 1.48-4.50 zdmv=343) MONOCYTES ABSOLUTE COUNT (BEAKER) (test xwca=193) 0.62 K/ L 0.00-1.30 EOSINOPHILS ABSOLUTE COUNT (BEAKER) (test 0.20 K/ L 0.00-0.50 bciw=207) BASOPHILS ABSOLUTE COUNT (BEAKER) (test pdwi=165) 0.03 K/ L 0.00-0.20 0.00BASI METABOLIC [id number] 06:45:00 Test Item Value Reference Range Comments SODIUM (BEAKER) (test 134 meq/L 136-145 cubv=905) POTASSIUM (BEAKER) (test 3.6 meq/L 3.5-5.1 wvdu=628) CHLORIDE (BEAKER) (test 106 meq/L 98-107 nimi=171) CO2 (BEAKER) (test 21 meq/L 22-29 hqey=037) BLOOD UREA NITROGEN 14 mg/dL 7-21 (BEAKER) (test joxc=479) CREATININE (BEAKER) (test 1.33 mg/dL 0.57-1.25 zagr=285) GLUCOSE RANDOM (BEAKER) 71 mg/dL 70-105 (test sauf=234) CALCIUM (BEAKER) (test 7.6 mg/dL 8.4-10.2 mrwo=937) EGFR (BEAKER) (test 57 mL/min/1.73 sq m ESTIMATED GFR IS NOT bioi=7773) ACCURATE CREATININE CLEARANCE IN PREDICTING GLOMERULAR FILTRATION RATE. ESTIMATED GFR IS NOT APPLICABLE FOR DIALYSIS PATIENTS. Specimen moderately ictericHEPATIC FUNCTION [id number] 06:40:00 Test Item Value Reference Range Comments TOTAL PROTEIN (BEAKER) (test tmzu=068) 5.6 gm/dL 6.0-8.3 ALBUMIN (BEAKER) (test bphn=0852) 2.1 g/dL 3.5-5.0 BILIRUBIN TOTAL (BEAKER) (test shox=165) 4.4 mg/dL 0.2-1.2 BILIRUBIN DIRECT (BEAKER) (test venb=372) 2.9 mg/dL 0.1-0.5 ALKALINE PHOSPHATASE (BEAKER) (test sucm=559) 86 U/L 40-150 AST (SGOT) (BEAKER) (test shpj=728) 45 U/L 5-34 ALT (SGPT) (BEAKER) (test hmnt=867) 13 U/L 6-55 Specimen moderately ictericPROTHROMBIN [id number] 06:05:00 Test Item Value Reference Range Comments PROTIME (BEAKER) (test reim=985) 29.4 seconds 11.7-14.7 INR (BEAKER) (test iojc=600) 2.8 <=5.9 RECOMMENDED COUMADIN/WARFARIN INR THERAPY RANGESSTANDARD DOSE: 2.0 - 3.0 Includes: PROPHYLAXIS forvenous thrombosis, systemic embolization; TREATMENT for venous thrombosis and/or pulmonary embolus.HIGH RISK: Target INR is 2.5-3.5 for patients with mechanical heart valves.BODY FLUID CELL COUNT WITH [id number] 20:51:00 Test Item Value Reference Range Comments APPEARANCE FLUID (BEAKER) (test slmr=332) Slightly Hazy Clear COLOR FLUID (BEAKER) (test anvk=972) Yellow Colorless, Straw RBC FLUID (BEAKER) (test tzky=789) 545 /cu mm <=1 ADJUSTED WBC FLUID (BEAKER) (test davs=0070) 104 /cu mm <=5 LINING CELLS (BEAKER) (test sbae=0143) 1 /cu mm <=1 NEUTROPHILS FLUID (BEAKER) (test kzlz=0735) 3 % LYMPHS FLUID (BEAKER) (test xycz=876) 13 % MONO/MACROPHAGE FLUID (BEAKER) (test 84 % bzgz=138) EOSINOPHILS FLUID (BEAKER) (test cwos=052) 0 % BASO FLUID (BEAKER) (test vbhc=707) 0 % CONTAINER BODY FLUID (BEAKER) (test EDTA Tube stcz=5172) POCT-GLUCOSE [id number] 18:48:00 Test Item Value Reference Range Comments POC-GLUCOSE METER (BEAKER) 105 mg/dL 70-110 TESTED AT [facility] [address], [place] (test mlmn=6425) [facility] [address] BASIC METABOLIC [id number] 05:45:00 Test Item Value Reference Range Comments SODIUM (BEAKER) (test 133 meq/L 136-145 naxa=784) POTASSIUM (BEAKER) (test 4.3 meq/L 3.5-5.1 Specimen moderately sidf=799) hemolyzed CHLORIDE (BEAKER) (test 107 meq/L 98-107 ctge=246) CO2 (BEAKER) (test 19 meq/L 22-29 zhmj=120) BLOOD UREA NITROGEN 10 mg/dL 7-21 (BEAKER) (test bgsm=525) CREATININE (BEAKER) (test 0.86 mg/dL 0.57-1.25 Specimen moderately loxq=936) hemolyzed GLUCOSE RANDOM (BEAKER) 68 mg/dL 70-105 (test gbck=085) CALCIUM (BEAKER) (test 7.5 mg/dL 8.4-10.2 kqao=343) EGFR (BEAKER) (test 94 mL/min/1.73 sq m ESTIMATED GFR IS NOT qjru=6294) ACCURATE CREATININE CLEARANCE IN PREDICTING GLOMERULAR FILTRATION RATE. ESTIMATED GFR IS NOT APPLICABLE FOR DIALYSIS PATIENTS. Specimen slightly ictericHEPATIC FUNCTION [id number] 05:45:00 Test Item Value Reference Range Comments TOTAL PROTEIN (BEAKER) (test 5.9 gm/dL 6.0-8.3 Specimen moderately hemolyzed tvpv=902) ALBUMIN (BEAKER) (test 1.9 g/dL 3.5-5.0 Specimen moderately hemolyzed gknc=0799) BILIRUBIN TOTAL (BEAKER) (test 4.4 mg/dL 0.2-1.2 Specimen moderately hemolyzed zxcy=068) BILIRUBIN DIRECT (BEAKER) 2.6 mg/dL 0.1-0.5 Specimen moderately hemolyzed (test amvu=174) ALKALINE PHOSPHATASE (BEAKER) 86 U/L 40-150 (test ghud=541) AST (SGOT) (BEAKER) (test 74 U/L 5-34 Specimen moderately hemolyzed jgtu=288) ALT (SGPT) (BEAKER) (test 17 U/L 6-55 Specimen moderately ordi=138) hemolyzed Specimen slightly ictericCBC W/PLT COUNT & AUTO [id number] 05:21 :00 Test Item Value Reference Range Comments WHITE BLOOD CELL COUNT (BEAKER) (test iyrl=969) 3.5 K/ L 4.0-10.0 RED BLOOD CELL COUNT (BEAKER) (test axwh=628) 2.06 M/ L 4.20-5.80 HEMOGLOBIN (BEAKER) (test fwzd=661) 7.9 GM/DL 13.0-16.8 HEMATOCRIT (BEAKER) (test vwpw=961) 22.8 % 40.0-50.0 MEAN CORPUSCULAR VOLUME (BEAKER) (test ggon=473) 110.0 fL 82.0-98.0 MEAN CORPUSCULAR HEMOGLOBIN (BEAKER) (test 38.2 pg 27.0-33.0 wjbs=757) MEAN CORPUSCULAR HEMOGLOBIN CONC (BEAKER) (test 34.6 GM/DL 32.0-36.0 fwxy=203) RED CELL DISTRIBUTION WIDTH (BEAKER) (test 13.5 % 10.3-14.2 yvbl=376) PLATELET COUNT (BEAKER) (test acpc=363) 61 K/CU MM 150-430 MEAN PLATELET VOLUME (BEAKER) (test yemc=423) 6.8 fL 6.5-10.5 NUCLEATED RED BLOOD CELLS (BEAKER) (test 0 /100 WBC 0-0 qght=218) NEUTROPHILS RELATIVE PERCENT (BEAKER) (test 51 % qxgs=023) LYMPHOCYTES RELATIVE PERCENT (BEAKER) (test 24 % tlnz=348) MONOCYTES RELATIVE PERCENT (BEAKER) (test 18 % syld=545) EOSINOPHILS RELATIVE PERCENT (BEAKER) (test 7 % ismh=181) BASOPHILS RELATIVE PERCENT (BEAKER) (test 1 % trbw=759) NEUTROPHILS ABSOLUTE COUNT (BEAKER) (test 1.76 K/ L 1.80-8.00 iyyc=895) LYMPHOCYTES ABSOLUTE COUNT (BEAKER) (test 0.85 K/ L 1.48-4.50 dqnn=330) MONOCYTES ABSOLUTE COUNT (BEAKER) (test kchv=008) 0.61 K/ L 0.00-1.30 EOSINOPHILS ABSOLUTE COUNT (BEAKER) (test 0.23 K/ L 0.00-0.50 exga=902) BASOPHILS ABSOLUTE COUNT (BEAKER) (test bety=984) 0.02 K/ L 0.00-0.20 0.00PROTHROMBIN [id number] 05:19:00 Test Item Value Reference Range Comments PROTIME (BEAKER) (test rmtn=250) 28.2 seconds 11.7-14.7 INR (BEAKER) (test vpnt=970) 2.6 <=5.9 RECOMMENDED COUMADIN/WARFARIN INR THERAPY RANGESSTANDARD DOSE: 2.0 - 3.0 Includes: PROPHYLAXIS forvenous thrombosis, systemic embolization; TREATMENT for venous thrombosis and/or pulmonary embolus.HIGH RISK: Target INR is 2.5-3.5 for patients with mechanical heart valves.BODY FLUID CULTURE + GRAM [id number] 14:14:00 Test Item Value Reference Range Comments CULTURE (BEAKER) (test mazk=4342) No growth GRAM STAIN RESULT (BEAKER) (test 2+ WBCs kcuf=4329) GRAM STAIN RESULT (BEAKER) (test No organisms seen ucmc=10441) CBC W/PLT COUNT & AUTO [id number] 10:28:00 Test Item Value Reference Range Comments WHITE BLOOD CELL COUNT (BEAKER) (test iupy=590) 3.6 K/ L 4.0-10.0 RED BLOOD CELL COUNT (BEAKER) (test znpf=180) 2.17 M/ L 4.20-5.80 HEMOGLOBIN (BEAKER) (test imxq=153) 7.7 GM/DL 13.0-16.8 HEMATOCRIT (BEAKER) (test yrei=730) 23.8 % 40.0-50.0 MEAN CORPUSCULAR VOLUME (BEAKER) (test ctdp=264) 110.0 fL 82.0-98.0 MEAN CORPUSCULAR HEMOGLOBIN (BEAKER) (test 35.3 pg 27.0-33.0 chdw=673) MEAN CORPUSCULAR HEMOGLOBIN CONC (BEAKER) (test 32.1 GM/DL 32.0-36.0 waua=586) RED CELL DISTRIBUTION WIDTH (BEAKER) (test 13.7 % 10.3-14.2 tabo=813) PLATELET COUNT (BEAKER) (test gosz=146) 62 K/CU MM 150-430 MEAN PLATELET VOLUME (BEAKER) (test guam=941) 6.5 fL 6.5-10.5 NUCLEATED RED BLOOD CELLS (BEAKER) (test 0 /100 WBC 0-0 gbqm=511) NEUTROPHILS RELATIVE PERCENT (BEAKER) (test 58 % kghn=785) LYMPHOCYTES RELATIVE PERCENT (BEAKER) (test 18 % lnji=655) MONOCYTES RELATIVE PERCENT (BEAKER) (test 17 % ybgt=346) EOSINOPHILS RELATIVE PERCENT (BEAKER) (test 8 % lpat=433) BASOPHILS RELATIVE PERCENT (BEAKER) (test 0 % crgk=421) NEUTROPHILS ABSOLUTE COUNT (BEAKER) (test 2.10 K/ L 1.80-8.00 zgpj=178) LYMPHOCYTES ABSOLUTE COUNT (BEAKER) (test 0.63 K/ L 1.48-4.50 yzkz=214) MONOCYTES ABSOLUTE COUNT (BEAKER) (test kqdk=058) 0.59 K/ L 0.00-1.30 EOSINOPHILS ABSOLUTE COUNT (BEAKER) (test 0.28 K/ L 0.00-0.50 dggg=462) BASOPHILS ABSOLUTE COUNT (BEAKER) (test apgz=803) 0.00 K/ L 0.00-0.20 [id number] 10:16:00 Test Item Value Reference Range Comments PROCALCITONIN (BEAKER) (test utvo=9765) < ng/mL <0.05 SEPSIS RISK (ng/mL)Low: 0.05-0.50Intermediate: 0.51-2.00High: & gt;=2.01HEPATIC FUNCTION [id number] 06:26:00 Test Item Value Reference Range Comments TOTAL PROTEIN (BEAKER) (test jrxt=459) 5.6 gm/dL 6.0-8.3 ALBUMIN (BEAKER) (test zrsf=4107) 1.9 g/dL 3.5-5.0 BILIRUBIN TOTAL (BEAKER) (test iktz=646) 4.7 mg/dL 0.2-1.2 BILIRUBIN DIRECT (BEAKER) (test rryj=348) 2.9 mg/dL 0.1-0.5 ALKALINE PHOSPHATASE (BEAKER) (test pzzy=449) 85 U/L 40-150 AST (SGOT) (BEAKER) (test kygx=962) 53 U/L 5-34 ALT (SGPT) (BEAKER) (test fbjl=679) 14 U/L 6-55 Specimen moderately ictericBASIC METABOLIC [id number] 06:26:00 Test Item Value Reference Range Comments SODIUM (BEAKER) (test 134 meq/L 136-145 ueaz=586) POTASSIUM (BEAKER) (test 3.8 meq/L 3.5-5.1 mfrd=020) CHLORIDE (BEAKER) (test 107 meq/L 98-107 utam=788) CO2 (BEAKER) (test 19 meq/L 22-29 wgjb=340) BLOOD UREA NITROGEN 8 mg/dL 7-21 (BEAKER) (test rvan=086) CREATININE (BEAKER) (test 0.73 mg/dL 0.57-1.25 kuho=892) GLUCOSE RANDOM (BEAKER) 73 mg/dL 70-105 (test fkaz=132) CALCIUM (BEAKER) (test 7.2 mg/dL 8.4-10.2 xcqk=095) EGFR (BEAKER) (test 113 mL/min/1.73 sq m ESTIMATED GFR IS NOT yquu=6240) ACCURATE CREATININE CLEARANCE IN PREDICTING GLOMERULAR FILTRATION RATE. ESTIMATED GFR IS NOT APPLICABLE FOR DIALYSIS PATIENTS. Specimen moderately ictericPROTHROMBIN TIME/[id number] 06:05:00 Test Item Value Reference Range Comments PROTIME (BEAKER) (test upfm=650) 30.9 seconds 11.7-14.7 INR (BEAKER) (test hwcc=649) 3.0 <=5.9 RECOMMENDED COUMADIN/WARFARIN INR THERAPY RANGESSTANDARD DOSE: 2.0 - 3.0 Includes: PROPHYLAXIS forvenous thrombosis, systemic embolization; TREATMENT for venous thrombosis and/or pulmonary embolus.HIGH RISK: Target INR is 2.5-3.5 for patients with mechanical heart valves.[id number] 05:54:00 Test Item Value Reference Range Comments PREALBUMIN (BEAKER) (test uqjl=090) < mg/dL 14-45 URINE [id number] 12:11:00 Test Item Value Reference Range Comments CULTURE (BEAKER) (test rcra=5322) No growth VANCOMYCIN LEVEL, [id number] 09:26:00 Test Item Value Reference Range Comments VANCOMYCIN TROUGH (BEAKER) (test oiiz=086) 15.3 ug/mL 10.0-20.0 HEPATIC FUNCTION [id number] 06:17:00 Test Item Value Reference Range Comments TOTAL PROTEIN (BEAKER) (test iarv=567) 5.6 gm/dL 6.0-8.3 ALBUMIN (BEAKER) (test qiyy=9776) 2.0 g/dL 3.5-5.0 BILIRUBIN TOTAL (BEAKER) (test bhfo=395) 4.2 mg/dL 0.2-1.2 BILIRUBIN DIRECT (BEAKER) (test hqhm=857) 2.7 mg/dL 0.1-0.5 ALKALINE PHOSPHATASE (BEAKER) (test vuye=507) 98 U/L 40-150 AST (SGOT) (BEAKER) (test iupa=147) 45 U/L 5-34 ALT (SGPT) (BEAKER) (test zzeu=129) 12 U/L 6-55 Specimen slightly ictericBASIC METABOLIC [id number] 06:17:00 Test Item Value Reference Range Comments SODIUM (BEAKER) (test 133 meq/L 136-145 tzgz=530) POTASSIUM (BEAKER) (test 3.4 meq/L 3.5-5.1 dtgm=826) CHLORIDE (BEAKER) (test 107 meq/L 98-107 fwdr=072) CO2 (BEAKER) (test 22 meq/L 22-29 njuk=859) BLOOD UREA NITROGEN 7 mg/dL 7-21 (BEAKER) (test ovtr=481) CREATININE (BEAKER) (test 0.73 mg/dL 0.57-1.25 rzcm=570) GLUCOSE RANDOM (BEAKER) 87 mg/dL 70-105 (test bkdw=018) CALCIUM (BEAKER) (test 7.2 mg/dL 8.4-10.2 uqss=231) EGFR (BEAKER) (test 113 mL/min/1.73 sq m ESTIMATED GFR IS NOT cnyr=9208) ACCURATE CREATININE CLEARANCE IN PREDICTING GLOMERULAR FILTRATION RATE. ESTIMATED GFR IS NOT APPLICABLE FOR DIALYSIS PATIENTS. Specimen slightly ictericPROTHROMBIN [id number] 06:04:00 Test Item Value Reference Range Comments PROTIME (BEAKER) (test jnnc=220) 31.7 seconds 11.7-14.7 INR (BEAKER) (test xibt=875) 3.0 <=5.9 RECOMMENDED COUMADIN/WARFARIN INR THERAPY RANGESSTANDARD DOSE: 2.0 - 3.0 Includes: PROPHYLAXIS forvenous thrombosis, systemic embolization; TREATMENT for venous thrombosis and/or pulmonary embolus.HIGH RISK: Target INR is 2.5-3.5 for patients with mechanical heart valves.VITAMIN B12 AND [id number] 19:36 :00 Test Item Value Reference Range Comments VITAMIN B12 (BEAKER) (test zxjm=953) 1121 pg/mL 213-816 FOLATE (BEAKER) (test iczt=237) 18.3 ng/mL >=7.0 Effective 09/13/2014: Folate Reference Range ChangeNew: >=7.0 Previous: & gt;=5.4VITAMIN B12 AND [id number] 14:57:00 Test Item Value Reference Range Comments VITAMIN B12 (BEAKER) (test sebn=644) 1325 pg/mL 213-816 FOLATE (BEAKER) (test bkak=846) 8.3 ng/mL >=7.0 Effective 09/13/2014: Folate Reference Range ChangeNew: >=7.0 Previous: & gt;=5.4ANTI-NUCLEAR ANTIBODY (CHERYL)2017-02-03 13:56:00 Test Item Value Reference Range Comments ANTI-NUCLEAR ANTIBODY (CHERYL) (BEAKER) (test Negative Negative tqbf=767) HEPATITIS B CORE ANTIBODY, [id number] 12:27:00 Test Item Value Reference Range Comments HEPATITIS B CORE TOTAL ANTIBODY (BEAKER) (test Nonreactive Nonreactive uwpe=305) CRYPTOCOCCAL [id number] 11:25:00 Test Item Value Reference Range Comments CRYPTOCOCCAL ANTIGEN, SERUM (BEAKER) (test Negative Negative, Interference tyqs=1804) HEPATITIS B SURFACE [id number] 11:15:00 Test Item Value Reference Range Comments HEPATITIS B SURFACE ANTIBODY (BEAKER) (test < mIU/mL <8.0 tvsc=115) HEPATITIS B SURFACE [id number] 09:53:00 Test Item Value Reference Range Comments HEPATITIS B SURFACE ANTIGEN (2) (BEAKER) (test Nonreactive Nonreactive tcgz=2285) HIV-1 ANTIGEN WITH HIV-1/2 [id number] 09:53:00 Test Item Value Reference Range Comments HIV-1 ANTIGEN WITH HIV 1\\T\\2 ANTIBODY (2) Nonreactive Nonreactive (BEAKER) (test fwpp=2497) HEPATIC FUNCTION [id number] 07:01:00 Test Item Value Reference Range Comments TOTAL PROTEIN (BEAKER) (test mkgj=268) 5.5 gm/dL 6.0-8.3 ALBUMIN (BEAKER) (test ipmm=7997) 2.0 g/dL 3.5-5.0 BILIRUBIN TOTAL (BEAKER) (test itax=634) 3.8 mg/dL 0.2-1.2 BILIRUBIN DIRECT (BEAKER) (test bvxo=227) 2.5 mg/dL 0.1-0.5 ALKALINE PHOSPHATASE (BEAKER) (test dgrd=042) 108 U/L 40-150 AST (SGOT) (BEAKER) (test edum=860) 40 U/L 5-34 ALT (SGPT) (BEAKER) (test mdan=746) 10 U/L 6-55 Specimen slightly ictericBASIC METABOLIC [id number] 07:01:00 Test Item Value Reference Range Comments SODIUM (BEAKER) (test 133 meq/L 136-145 izkk=520) POTASSIUM (BEAKER) (test 3.7 meq/L 3.5-5.1 tscu=294) CHLORIDE (BEAKER) (test 108 meq/L 98-107 vhea=879) CO2 (BEAKER) (test 20 meq/L 22-29 mvja=313) BLOOD UREA NITROGEN 7 mg/dL 7-21 (BEAKER) (test wsdb=716) CREATININE (BEAKER) (test 0.76 mg/dL 0.57-1.25 yeux=072) GLUCOSE RANDOM (BEAKER) 100 mg/dL 70-105 (test eozk=423) CALCIUM (BEAKER) (test 7.3 mg/dL 8.4-10.2 gyba=500) EGFR (BEAKER) (test 108 mL/min/1.73 sq m ESTIMATED GFR IS NOT xieo=4257) ACCURATE CREATININE CLEARANCE IN PREDICTING GLOMERULAR FILTRATION RATE. ESTIMATED GFR IS NOT APPLICABLE FOR DIALYSIS PATIENTS. Specimen slightly ictericCBC W/PLT COUNT & AUTO [id number] 06:53 :00 Test Item Value Reference Range Comments WHITE BLOOD CELL COUNT (BEAKER) (test qyga=933) 3.5 K/ L 4.0-10.0 RED BLOOD CELL COUNT (BEAKER) (test acri=122) 1.83 M/ L 4.20-5.80 HEMOGLOBIN (BEAKER) (test nfby=031) 7.3 GM/DL 13.0-16.8 HEMATOCRIT (BEAKER) (test cesh=248) 19.9 % 40.0-50.0 MEAN CORPUSCULAR VOLUME (BEAKER) (test welg=086) 109.0 fL 82.0-98.0 MEAN CORPUSCULAR HEMOGLOBIN (BEAKER) (test 39.9 pg 27.0-33.0 ijji=754) MEAN CORPUSCULAR HEMOGLOBIN CONC (BEAKER) (test 36.6 GM/DL 32.0-36.0 wxtn=345) RED CELL DISTRIBUTION WIDTH (BEAKER) (test 14.3 % 10.3-14.2 jifd=837) PLATELET COUNT (BEAKER) (test rsdw=921) 35 K/CU MM 150-430 MEAN PLATELET VOLUME (BEAKER) (test moui=308) 6.6 fL 6.5-10.5 NUCLEATED RED BLOOD CELLS (BEAKER) (test 0 /100 WBC 0-0 hgdm=918) NEUTROPHILS RELATIVE PERCENT (BEAKER) (test 60 % zepg=795) LYMPHOCYTES RELATIVE PERCENT (BEAKER) (test 18 % ikpe=882) MONOCYTES RELATIVE PERCENT (BEAKER) (test 17 % zznp=848) EOSINOPHILS RELATIVE PERCENT (BEAKER) (test 6 % hysi=090) BASOPHILS RELATIVE PERCENT (BEAKER) (test 0 % svzm=927) NEUTROPHILS ABSOLUTE COUNT (BEAKER) (test 2.06 K/ L 1.80-8.00 zcae=039) LYMPHOCYTES ABSOLUTE COUNT (BEAKER) (test 0.61 K/ L 1.48-4.50 tnyd=344) MONOCYTES ABSOLUTE COUNT (BEAKER) (test htfq=847) 0.58 K/ L 0.00-1.30 EOSINOPHILS ABSOLUTE COUNT (BEAKER) (test 0.19 K/ L 0.00-0.50 fvrz=142) BASOPHILS ABSOLUTE COUNT (BEAKER) (test zfyq=003) 0.01 K/ L 0.00-0.20 0.00PROTHROMBIN [id number] 06:39:00 Test Item Value Reference Range Comments PROTIME (BEAKER) (test gzmc=760) 30.6 seconds 11.7-14.7 INR (BEAKER) (test aoit=931) 2.9 <=5.9 RECOMMENDED COUMADIN/WARFARIN INR THERAPY RANGESSTANDARD DOSE: 2.0 - 3.0 Includes: PROPHYLAXIS forvenous thrombosis, systemic embolization; TREATMENT for venous thrombosis and/or pulmonary embolus.HIGH RISK: Target INR is 2.5-3.5 for patients with mechanical heart valves.URINALYSIS W/ [id number] 16 :58:00 Test Item Value Reference Range Comments COLOR (BEAKER) (test bujt=396) Yellow CLARITY (BEAKER) (test kyge=976) Clear SPECIFIC GRAVITY UA (BEAKER) (test 1.025 1.001-1.035 abkj=046) PH UA (BEAKER) (test wpfh=691) 7.0 5.0-8.0 PROTEIN UA (BEAKER) (test xbvy=804) Negative Negative GLUCOSE UA (BEAKER) (test zdrm=365) Negative Negative KETONES UA (BEAKER) (test dimy=540) Negative Negative BILIRUBIN UA (BEAKER) (test kczl=074) Positive Negative BLOOD UA (BEAKER) (test biqe=440) Negative Negative NITRITE UA (BEAKER) (test sbij=443) Negative Negative LEUKOCYTE ESTERASE UA (BEAKER) (test Negative Negative jvhe=009) UROBILINOGEN UA (BEAKER) (test wdoz=024) 8.0 mg/dL 0.2-1.0 RBC UA (BEAKER) (test ekmj=168) 0 /HPF WBC UA (BEAKER) (test vzcg=733) 2 /HPF MUCUS (BEAKER) (test lijw=8506) Rare HYALINE CASTS (BEAKER) (test zhdm=057) 3 /LPF SOURCE(BEAKER) (test clie=8801) Urine, Clean Catch [id number] 13:32:00 Test Item Value Reference Range Comments FERRITIN (BEAKER) (test biqy=694) 116 ng/mL 5-275 Effective 09/13/2014: Reference Range ChangeNew: Male 5-275 Previous: Male 22-322 Female 5-275 Female 10-291HEPATITIS A ANTIBODY, [id number] 13:19:00 Test Item Value Reference Range Comments HEPATITIS A IGG ANTIBODY (BEAKER) (test ubbp=4721) Reactive Nonreactive ALPHA FETOPROTEIN (AFP), TUMOR [id number] 13:17:00 Test Item Value Reference Range Comments ALPHA-FETOPROTEIN (BEAKER) (test zdbl=8732) 4.5 ng/mL <10.0 Effective 09/13/2014: Reference Range ChangeNew: <10.0 Previous: 0.0- 8.0HEPATITIS C [id number] 13:17:00 Test Item Value Reference Range Comments HEPATITIS C ANTIBODY (BEAKER) (test rppf=924) Nonreactive Nonreactive BODY FLUID CELL COUNT WITH [id number] 13:03:00 Test Item Value Reference Range Comments APPEARANCE FLUID (BEAKER) (test wgwx=622) Cloudy Clear COLOR FLUID (BEAKER) (test fsgy=944) Yellow Colorless, Straw RBC FLUID (BEAKER) (test xhlr=865) 1519 /cu mm <=1 ADJUSTED WBC FLUID (BEAKER) (test qfux=1257) 108 /cu mm <=5 LINING CELLS (BEAKER) (test tdkd=7299) 14 /cu mm <=1 NEUTROPHILS FLUID (BEAKER) (test aaec=3463) 11 % LYMPHS FLUID (BEAKER) (test ptlp=040) 30 % MONO/MACROPHAGE FLUID (BEAKER) (test ycxw=700) 59 % EOSINOPHILS FLUID (BEAKER) (test gkls=343) 0 % BASO FLUID (BEAKER) (test ibzg=503) 0 % CONTAINER BODY FLUID (BEAKER) (test vpqr=5460) EDTA Tube BASIC METABOLIC [id number] 12:56:00 Test Item Value Reference Range Comments SODIUM (BEAKER) (test 131 meq/L 136-145 okqp=922) POTASSIUM (BEAKER) (test 4.0 meq/L 3.5-5.1 Specimen moderately gaxc=790) hemolyzed CHLORIDE (BEAKER) (test 105 meq/L 98-107 gxnn=604) CO2 (BEAKER) (test 18 meq/L 22-29 czre=724) BLOOD UREA NITROGEN 6 mg/dL 7-21 (BEAKER) (test ymtx=659) CREATININE (BEAKER) (test 0.72 mg/dL 0.57-1.25 Specimen moderately ncom=562) hemolyzed GLUCOSE RANDOM (BEAKER) 103 mg/dL 70-105 (test cidn=681) CALCIUM (BEAKER) (test 7.4 mg/dL 8.4-10.2 fkhd=471) EGFR (BEAKER) (test 115 mL/min/1.73 sq m ESTIMATED GFR IS NOT gqcn=0020) ACCURATE CREATININE CLEARANCE IN PREDICTING GLOMERULAR FILTRATION RATE. ESTIMATED GFR IS NOT APPLICABLE FOR DIALYSIS PATIENTS. Specimen moderately ictericIRON, TIBC, % SAT. (WITHOUT FERRITIN)2017-02-02 12:56 :00 Test Item Value Reference Range Comments IRON (BEAKER) (test kdyo=268) 55 ug/dL 40-160 TOTAL IRON BINDING CAPACITY (BEAKER) (test 175 ug/dL 250-450 wwhq=887) IRON % SATURATION (2) (BEAKER) (test xofk=6883) 31 % 20-55 HEPATIC FUNCTION [id number] 12:50:00 Test Item Value Reference Range Comments TOTAL PROTEIN (BEAKER) (test 6.7 gm/dL 6.0-8.3 Specimen moderately hemolyzed dgjp=789) ALBUMIN (BEAKER) (test 2.0 g/dL 3.5-5.0 Specimen moderately hemolyzed rnwp=5320) BILIRUBIN TOTAL (BEAKER) (test 5.1 mg/dL 0.2-1.2 Specimen moderately hemolyzed wspb=235) BILIRUBIN DIRECT (BEAKER) 2.8 mg/dL 0.1-0.5 Specimen moderately hemolyzed (test wanj=276) ALKALINE PHOSPHATASE (BEAKER) 99 U/L 40-150 (test cowr=275) AST (SGOT) (BEAKER) (test 62 U/L 5-34 Specimen moderately hemolyzed mtir=008) ALT (SGPT) (BEAKER) (test 15 U/L 6-55 Specimen moderately poqj=101) hemolyzed Specimen moderately ictericCBC W/PLT COUNT & AUTO [id number] 12: 47:00 Test Item Value Reference Range Comments WHITE BLOOD CELL COUNT (BEAKER) (test uhig=237) 3.3 K/ L 4.0-10.0 RED BLOOD CELL COUNT (BEAKER) (test kfyh=708) 2.08 M/ L 4.20-5.80 HEMOGLOBIN (BEAKER) (test xxjf=842) 7.8 GM/DL 13.0-16.8 HEMATOCRIT (BEAKER) (test ehrb=227) 22.9 % 40.0-50.0 MEAN CORPUSCULAR VOLUME (BEAKER) (test sajw=912) 110.0 fL 82.0-98.0 MEAN CORPUSCULAR HEMOGLOBIN (BEAKER) (test 37.4 pg 27.0-33.0 yxhx=036) MEAN CORPUSCULAR HEMOGLOBIN CONC (BEAKER) (test 34.1 GM/DL 32.0-36.0 laun=386) RED CELL DISTRIBUTION WIDTH (BEAKER) (test 15.0 % 10.3-14.2 nbrg=951) PLATELET COUNT (BEAKER) (test pefx=952) 48 K/CU MM 150-430 MEAN PLATELET VOLUME (BEAKER) (test iiqf=378) 6.6 fL 6.5-10.5 NUCLEATED RED BLOOD CELLS (BEAKER) (test 0 /100 WBC 0-0 ftrz=237) NEUTROPHILS RELATIVE PERCENT (BEAKER) (test 62 % aijj=888) LYMPHOCYTES RELATIVE PERCENT (BEAKER) (test 17 % yojx=659) MONOCYTES RELATIVE PERCENT (BEAKER) (test 15 % helv=997) EOSINOPHILS RELATIVE PERCENT (BEAKER) (test 6 % amaa=250) BASOPHILS RELATIVE PERCENT (BEAKER) (test 0 % lhnm=068) NEUTROPHILS ABSOLUTE COUNT (BEAKER) (test 2.03 K/ L 1.80-8.00 ioav=950) LYMPHOCYTES ABSOLUTE COUNT (BEAKER) (test 0.57 K/ L 1.48-4.50 cgse=379) MONOCYTES ABSOLUTE COUNT (BEAKER) (test tdqf=365) 0.48 K/ L 0.00-1.30 EOSINOPHILS ABSOLUTE COUNT (BEAKER) (test 0.19 K/ L 0.00-0.50 cihg=768) BASOPHILS ABSOLUTE COUNT (BEAKER) (test rgau=704) 0.01 K/ L 0.00-0.20 0.00PROTHROMBIN [id number] 12:42:00 Test Item Value Reference Range Comments PROTIME (BEAKER) (test oduf=768) 27.0 seconds 11.7-14.7 INR (BEAKER) (test jyrz=517) 2.5 <=5.9 RECOMMENDED COUMADIN/WARFARIN INR THERAPY RANGESSTANDARD DOSE: 2.0 - 3.0 Includes: PROPHYLAXIS forvenous thrombosis, systemic embolization; TREATMENT for venous thrombosis and/or pulmonary embolus.HIGH RISK: Target INR is 2.5-3.5 for patients with mechanical heart valves.ALBUMIN, BODY [id number] 11:46:00 Test Item Value Reference Range Comments ALBUMIN FLUID (BEAKER) (test hypx=389) 0.5 gm/dL Reference Range: No Normals Assay performance has not been validated for this type of specimen.PROTEIN, BODY [id number] 11:42:00 Test Item Value Reference Range Comments PROTEIN FLUID (BEAKER) (test luua=788) 1.3 g/dL Absence of reference range indicates that normals have not been defined.Assay performance has not been validated for this type of specimen.
--- OUTSIDE RECORDS SUMMARY | 2018-10-08 03:12 | XMS REPORT ---
[...] Date Date Ondansetron HCl [facility] 76087617901 4 MG Orally Active 1 tab every 8 hours as needed for Nausea and vomiting Hydrocortisone ND 72666396067 20 MG Orally AM Active 1 tablet Once a day with food or milk Magnesium Oxide ND 58418570338 400 MG Orally Active 1 tablet BID as needed Rifaximin [facility] [address]-33 550 MG Orally Active 1 tablet Twice a day Pantoprazole ND 54310611968 40 MG Orally Active 1 tablet Sodium Once a day Sodium Chloride ND 50612942962 1 GM Orally TID Active 2 tablets Lactulose ND 75036624588 10 GM/15ML Active 15 ml Orally TID Ondansetron HCl [facility] 37576485277 4 MG Active 1 TAB EVERY 8 HOURS NEEDED FOR NAUSEA AND VOMITING ORALLY 10 DAYS Citalopram [facility] 67793653290 40 MG Orally Active take one Hydrobromide once a day daily Hydrocortisone [facility] 13414562181 10 MG Orally PM Active 1 tablet Once a day with food or milk NuFera [facility] 98994955941 - Orally once a Active 1 tab day Citalopram [facility] 12554945499 10 MG Active TAKE ONE Hydrobromide DAILY Ursodiol [facility] 88940512679 300 MG Orally Active not defined Midodrine HCl [facility] 30395510549 10 MG Orally Active 1 tablet Three times a day Results No Known Results Summary Purpose eClinicalWorks Submission
--- OUTSIDE RECORDS SUMMARY | 2018-10-08 03:12 | XMS REPORT ---
[...] Status Dosage System Date Date Midodrine HCl [facility] 05112058300 10 MG Orally Active 1 tablet Three times a day Pantoprazole [facility] 91689552296 40 MG Orally Active 1 tablet Sodium Once a day Sodium Chloride ND 89728108372 1 GM Orally TID Active 2 tablets Ondansetron HCl ND 90937938456 4 MG Orally Active 1 tab every 8 hours as needed for Nausea and vomiting Hydrocortisone ND 36542461868 20 MG Orally AM Active 1 tablet Once a day with food or milk Ursodiol ND 04092710763 300 MG Orally Active not defined Lactulose ND 06385239941 10 GM/15ML Active 15 ml Orally TID Citalopram [facility] 42352529397 10 MG Active TAKE ONE Hydrobromide DAILY Rifaximin [facility] [place] [address]-63 550 MG Orally Active 1 tablet Twice a day Ondansetron HCl [facility] [place] 18910116366 4 MG Active 1 TAB EVERY 8 HOURS NEEDED FOR NAUSEA AND VOMITING ORALLY 10 DAYS Magnesium Oxide [facility] 69584754529 400 MG Orally Active 1 tablet BID as needed NuFera [facility] 86330076050 - Orally once a Active 1 tab day Hydrocortisone [facility] 82310093984 10 MG Orally PM Active 1 tablet Once a day with food or milk Results No Known Results Summary Purpose eClinicalWorks Submission
[2018-10-08 03:54] LABS: Absolute Lymphocytes (CBC) 0.6 K/uL (0.7-4.9); Absolute Monocytes 0.9 K/uL (0.1-1.3); Absolute Neutrophil 3.2 K/uL (1.8-8.0); Basophils % 0.3 % (0-1.3); Eosinophils % 3.5 % (0-4.4); Hematocrit 28.3 % (39.6-49.0); Lymphocytes % 12.6 % (15.3-44.8); MCH 32.1 pg (27.0-35.0); MCV 91.9 fL (80-100); MPV 6.8 fL (7.6-11.3); Monocytes % 18.6 % (3.3-12.3); RBC Red Blood Cell Count 3.08 M/uL (4.33-5.43)
[2018-10-08 04:07] LABS: Albumin 2.5 g/dL (3.4-5.0); Bilirubin Direct 1.6 mg/dL (0-0.2); Bilirubin Total 2.4 mg/dL (0.2-1.0); Potassium 5.2 mmol/L (3.5-5.1); Protein, Total 5.5 g/dL (6.4-8.2)
[2018-10-08 04:53] LABS: Blood Morphology Comment NOT SEEN (NOT SEEN)
[2018-10-08 04:54] LABS: Platelet Estimate DECR
[2018-10-08] MEDS ORDERED: ONDANSETRON 4 MG/2 ML VIAL ONE (06:13)
--- NOTE | 2018-10-08 06:44 | ER ---
Nurse's Notes [facility] Name: Abhishek Davis Age: 53 yrs Sex: Male : 1965 Arrival Date: 10/08/2018 Time: 02:54 Bed 18 Private MD: Diagnosis: Weakness;Alcoholic cirrhosis of liver with ascites;chronic hyponatremia Presentation: 10/08 02:55 Presenting complaint: EMS states: intermittent abdominal pain since 6 months but cc3 yesterday's worse. Transition of care: patient was not received from another setting of care. Onset of symptoms was October 07, 2018. Risk Assessment: Do you want to hurt yourself or someone else? Patient reports no desire to harm self or others. Initial Sepsis Screen: Does the patient meet any 2 criteria? No. Patient's initial sepsis screen is negative. Does the patient have a suspected source of infection? No. Patient's initial sepsis screen is negative. Care prior to arrival: Medication(s) given: patient took Tramadol at around 2230H-2300H. 02:55 Method Of Arrival: EMS: [facility] cc3 02:55 Acuity: KACEY 3 cc3 Triage Assessment: 02:55 General: Appears in no apparent distress. comfortable, Behavior is calm, cooperative, cc3 appropriate for age. Pain: Complains of pain in abdomen. EENT: No signs and/or symptoms were reported regarding the EENT system. Neuro: Level of Consciousness is awake, alert, obeys commands, Oriented to person, place, time, situation, Appropriate for age. Cardiovascular: Denies chest pain. Respiratory: Airway is patent Respiratory effort is even, unlabored, Respiratory pattern is regular, symmetrical. GI: Abdomen is distended, umbilical hernia protrusion. : No signs and/or symptoms were reported regarding the genitourinary system. Derm: noted to have generalized bruising and dry wound scabs all over his body. Musculoskeletal: Circulation, motion, and sensation intact. Range of motion: limited in lower legs. Historical: - Allergies: 02:55 No Known Allergies; cc3 - Home Meds: 02:55 Centrum Oral daily [Active]; citalopram 10 mg tab 1 tab once daily [Active]; Lactulose cc3 Oral 30 mL 3 times per day [Active]; Lasix 40 mg Oral tab 1 tab once daily [Active]; mag oxide 400 mg daily [Active]; midodrine 5 mg Oral tab twice a day [Active]; ursodiol 300 mg Oral cap 1 cap 2 times per day [Active]; Xifaxan 550 mg Oral tab 1 tab 2 times per day [Active]; - PMHx: 02:55 Anemia; Cirrhosis; renal insufficiency; Umbilical hernia; cc3 - PSHx: 02:55 left wrist surgery; cc3 - Immunization history:: Adult Immunizations up to date. - Social history:: Smoking status: Patient/guardian denies using tobacco, never smoked. - Ebola Screening: : No symptoms or risks identified at this time. Screenin:55 Abuse screen: Denies threats or abuse. Denies injuries from another. Nutritional cc3 screening: No deficits noted. Tuberculosis screening: No symptoms or risk factors identified. Fall Risk Ambulatory Aid- None/Bed Rest/Nurse Assist (0 pts). Gait- Weak (10 pts.). Mental Status- Oriented to own ability (0 pts). Assessment: 02:55 General: see triage assessment. cc3 02:55 GI: Bowel sounds diminished in in all quadrants Abd is soft and non tender X 4 quads. cc3 Hepatomegaly noted. 03:20 Reassessment: Patient appears in no apparent distress at this time. Patient and/or cc3 family updated on plan of care and expected duration. Pain level reassessed. Patient is alert, oriented x 3, equal unlabored respirations, skin warm/dry/pink. 04:31 Reassessment: Patient appears in no apparent distress at this time. Patient and/or cc3 family updated on plan of care and expected duration. Pain level reassessed. Patient is alert, oriented x 3, equal unlabored respirations, skin warm/dry/pink. Patient came back from CT scan department. 05:42 Reassessment: Patient appears in no apparent distress at this time. Patient and/or cc3 family updated on plan of care and expected duration. Pain level reassessed. Patient is alert, oriented x 3, equal unlabored respirations, skin warm/dry/pink. 06:14 Reassessment: Patient appears in no apparent distress at this time. Patient and/or cc3 family updated on plan of care and expected duration. Pain level reassessed. Patient is alert, oriented x 3, equal unlabored respirations, skin warm/dry/pink. Patient complains of abdominal pain, informed Dr. Zhang and he said he will not give anything for his abdominal pain because his CT scan is normal. 06:50 Reassessment: Dr. Zhang discharged home the patient, no prescription given. IV cannula cc3 removed and patient left ER vitally stable by wheelchair escorted by me and the patient's . Vital Signs: 02:55 BP 113 / 73; Pulse 87; Resp 20 S; Temp 98.2(O); Pulse Ox 98% on R/A; Weight 58.97 kg cc3 (R); Height 5 ft. 6 in. (167.64 cm) (R); Pain 10/10; 03:15 BP 107 / 74; Pulse 82; Resp 17 S; Pulse Ox 96% on R/A; cc3 04:20 BP 108 / 89; Pulse 85; Resp 16 S; Pulse Ox 97% on R/A; cc3 05:15 BP 101 / 79; Pulse 73; Resp 17 S; Pulse Ox 100% on R/A; cc3 05:45 BP 100 / 79; Pulse 73; Resp 18 S; Pulse Ox 100% on R/A; cc3 06:18 BP 104 / 78; Pulse 78; Resp 19 S; Pulse Ox 98% on R/A; cc3 06:39 BP 106 / 77; Pulse 76; Resp 18 S; Pulse Ox 97% on R/A; cc3 02:55 Body Mass Index 20.98 (58.97 kg, 167.64 cm) cc3 ED Course: 02:54 Patient arrived in ED. ds1 02:55 Arm band placed on right wrist. cc3 02:55 Patient has correct armband on for positive identification. Bed in low position. Call cc3 light in reach. Side rails up X2. site monitor on. Pulse ox on. NIBP on. 03:07 Amy Whatley is Primary Nurse. cc3 03:10 Triage completed. cc3 03:12 Bkaari Zhang MD is Attending Physician. tw4 03:40 Inserted saline lock: 20 gauge in right antecubital area, using aseptic technique. cc3 Blood collected. 04:24 Abdomen In Process Unspecified. EDMS 06:50 No provider procedures requiring assistance completed. IV discontinued, intact, cc3 bleeding controlled, No redness/swelling at site. Pressure dressing applied. Administered Medications: 06:09 Drug: Zofran 4 mg Route: IVP; Site: right antecubital; cc3 06:25 Follow up: Response: No adverse reaction; Nausea is decreased; Vomiting decreased cc3 Outcome: 06:43 Discharge ordered by . tw4 06:50 Discharged to home via wheelchair, with family. cc3 06:50 Condition: stable 06:50 Discharge instructions given to patient, family, Instructed on discharge instructions, follow up and referral plans. Demonstrated understanding of instructions, follow-up care. 07:00 Patient left the ED. cc3 Signatures: Dispatcher [employer] [facility] Nelda Woods ds1 Bakari Zhang MD MD tw4 Amy Whatley cc3
--- NOTE | 2018-10-08 06:44 | EDPHYS ---
Physician Documentation [facility] Name: Abhishek Davis Age: 53 yrs Sex: Male : 1965 Arrival Date: 10/08/2018 Time: 02:54 Bed 18 Private MD: ED Physician Bakari Zhang HPI: 10/08 06:18 This 53 yrs old Male presents to ER via EMS with complaints of Abdominal Pain. tw4 06:18 The patient presents with abdominal pain. Onset: The symptoms/episode began/occurred 6 tw4 month(s) ago. The symptoms do not radiate. Associated signs and symptoms: none. The symptoms are described as crampy, dull, intermittent. Modifying factors: The symptoms are alleviated by nothing, the symptoms are aggravated by nothing. Severity of pain: At its worst the pain was moderate in the emergency department the pain is unchanged. The patient has not experienced similar symptoms in the past. Historical: - Allergies: 02:55 No Known Allergies; cc3 - Home Meds: 02:55 Centrum Oral daily [Active]; citalopram 10 mg tab 1 tab once daily [Active]; Lactulose cc3 Oral 30 mL 3 times per day [Active]; Lasix 40 mg Oral tab 1 tab once daily [Active]; mag oxide 400 mg daily [Active]; midodrine 5 mg Oral tab twice a day [Active]; ursodiol 300 mg Oral cap 1 cap 2 times per day [Active]; Xifaxan 550 mg Oral tab 1 tab 2 times per day [Active]; - PMHx: 02:55 Anemia; Cirrhosis; renal insufficiency; Umbilical hernia; cc3 - PSHx: 02:55 left wrist surgery; cc3 - Immunization history:: Adult Immunizations up to date. - Social history:: Smoking status: Patient/guardian denies using tobacco, never smoked. - Ebola Screening: : No symptoms or risks identified at this time. ROS: 06:18 Constitutional: Negative for fever, chills, and weight loss, Cardiovascular: Negative tw4 for chest pain, palpitations, and edema, Respiratory: Negative for shortness of breath, cough, wheezing, and pleuritic chest pain, Abdomen/GI: Negative for abdominal pain, nausea, vomiting, diarrhea, and constipation, Back: Negative for injury and pain, MS/Extremity: Negative for injury and deformity, Skin: Negative for injury, rash, and discoloration, Neuro: Negative for headache, weakness, numbness, tingling, and seizure. Exam: 06:22 Constitutional: This is a well developed, well nourished patient who is awake, alert, tw4 and in no acute distress. Head/Face: Normocephalic, atraumatic. Neck: Trachea midline, no thyromegaly or masses palpated, and no cervical lymphadenopathy. Supple, full range of motion without nuchal rigidity, or vertebral point tenderness. No Meningismus. Chest/axilla: Normal chest wall appearance and motion. Nontender with no deformity. No lesions are appreciated. Cardiovascular: Regular rate and rhythm with a normal S1 and S2. No gallops, murmurs, or rubs. Normal PMI, no JVD. No pulse deficits. Respiratory: Lungs have equal breath sounds bilaterally, clear to auscultation and percussion. No rales, rhonchi or wheezes noted. No increased work of breathing, no retractions or nasal flaring. 06:22 Back: No spinal tenderness. No costovertebral tenderness. Full range of motion. MS/ Extremity: Pulses equal, no cyanosis. Neurovascular intact. Full, normal range of motion. Neuro: Awake and alert, GCS 15, oriented to person, place, time, and situation. Cranial nerves II-XII grossly intact. Motor strength 5/5 in all extremities. Sensory grossly intact. Cerebellar exam normal. Normal gait. 06:22 Abdomen/GI: Inspection: distension, that is moderate, in the right upper quadrant, left upper quadrant, right lower quadrant and left lower quadrant, Bowel sounds: diminished, Palpation: mild abdominal tenderness, in all quadrants, Liver: is enlarged, palpable 8 cm(s) below rib margin, Hernia: noted in the umbilical area, incarceration, is not appreciated, tenderness, is not appreciated. Vital Signs: 02:55 BP 113 / 73; Pulse 87; Resp 20 S; Temp 98.2(O); Pulse Ox 98% on R/A; Weight 58.97 kg cc3 (R); Height 5 ft. 6 in. (167.64 cm) (R); Pain 10/10; 03:15 BP 107 / 74; Pulse 82; Resp 17 S; Pulse Ox 96% on R/A; cc3 04:20 BP 108 / 89; Pulse 85; Resp 16 S; Pulse Ox 97% on R/A; cc3 05:15 BP 101 / 79; Pulse 73; Resp 17 S; Pulse Ox 100% on R/A; cc3 05:45 BP 100 / 79; Pulse 73; Resp 18 S; Pulse Ox 100% on R/A; cc3 06:18 BP 104 / 78; Pulse 78; Resp 19 S; Pulse Ox 98% on R/A; cc3 06:39 BP 106 / 77; Pulse 76; Resp 18 S; Pulse Ox 97% on R/A; cc3 02:55 Body Mass Index 20.98 (58.97 kg, 167.64 cm) cc3 MDM: 03:12 Patient medically screened. tw4 06:44 Data reviewed: vital signs, nurses notes. Data interpreted: Pulse oximetry: tw4 Interpretation: normal. Counseling: I had a detailed discussion with the patient and/or guardian regarding: the historical points, exam findings, and any diagnostic results supporting the discharge/admit diagnosis. Special discussion: Based on the patient's Hx, exam, and Dx evaluation, there is no indication for emergent surgery or inpatient Tx. It is understood by the patient/guardian that if the Sx's persist or worsen they need to return immediately for re-evaluation. I discussed with the patient/guardian in detail that at this point there is no indication for admission to the hospital. It is understood, however, that if the symptoms persist or worsen the patient needs to return immediately for re-evaluation. 10/08 03:14 Order name: Basic Metabolic Panel; Complete Time: 05:58 tw4 10/08 05:58 Interpretation: Normal except: K 5.2; NA 128; CL 95; GLUC 139; BUN 49; CRE 1.80; GFR 40.tw4 10/08 03:14 Order name: CBC with Diff; Complete Time: 05:58 tw4 10/08 05:58 Interpretation: Normal except: WBC 4.9; RBC 3.08; HGB 9.9; HCT 28.3; MN% 18.6; LYM% tw4 12.6; MPV 6.8; RDW 17.7; PLT 85; LYMA 0.6. 10/08 03:14 Order name: Creatinine for Radiology; Complete Time: 05:58 tw4 10/08 03:14 Order name: Hepatic Function; Complete Time: 05:58 tw4 10/08 05:58 Interpretation: Normal except: ALK 242; BILIT 2.4; BILID 1.6; TP 5.5; ALB 2.5; A/G 0.8. tw4 10/08 03:14 Order name: Lipase; Complete Time: 05:58 tw4 10/08 05:59 Interpretation: Within normal limits: LIP 193. tw4 10/08 03:14 Order name: IV Saline Lock; Complete Time: 03:45 tw4 10/08 03:14 Order name: Labs collected and sent; Complete Time: 03:45 tw4 10/08 04:23 Order name: Abdomen EDNC 10/08 04:51 Order name: Manual Differential; Complete Time: 05:58 EDMS Administered Medications: 06:09 Drug: Zofran 4 mg Route: IVP; Site: right antecubital; cc3 06:25 Follow up: Response: No adverse reaction; Nausea is decreased; Vomiting decreased cc3 Disposition: 10/08/18 06:43 Discharged to Home. Impression: Weakness, Alcoholic cirrhosis of liver with ascites, chronic hyponatremia. - Condition is Stable. - Discharge Instructions: Ascites, Hyponatremia, Paracentesis, Weakness, Fatigue, Hyponatremia, [place], Alcoholic Liver Disease. - Medication Reconciliation Form, Thank You Letter, Antibiotic Education, Prescription Opioid Use form. - Follow up: Private Physician; When: Upon discharge from the Emergency Department; Reason: If symptoms return, Recheck today's complaints, Continuance of care. - Problem is an ongoing problem. - Symptoms are unchanged. Signatures: Dispatcher [employer] [facility] Bakari Zhang MD MD tw4 Amy Whatley cc3 Corrections: (The following items were deleted from the chart) 04:23 03:15 Abdomen Pelvis W Con+CT.RAD.BRZ ordered. EDNC EDMS 04:51 03:58 CBC Smear Scan ordered. [facility] EDNC 07:00 06:43 10/08/2018 06:43 Discharged to Home. Impression: Weakness; Alcoholic cirrhosis of cc3 liver with ascites; chronic hyponatremia. Condition is Stable. Forms are Medication Reconciliation Form, Thank You Letter, Antibiotic Education, Prescription Opioid Use. Follow up: Private Physician; When: Upon discharge from the Emergency Department; Reason: If symptoms return, Recheck today's complaints, Continuance of care. Problem is an ongoing problem. Symptoms are unchanged. tw4
[2018-10-08 07:08] VITALS: TEMP 98.2
[2018-10-08 07:16] VITALS: BP 106/77; O2SAT 97
--- NOTE | 2018-10-08 09:04 | RAD REPORT ---
EXAM DESCRIPTION: CT - Abdomen Pelvis Wo Contrast - 10/08/2018 4:25 am CLINICAL HISTORY: Abdominal pain. ABD PAIN COMPARISON: [facility] Protocol dated 09/22/2018 TECHNIQUE: CT imaging of the abdomen and pelvis was performed without contrast. Solid organ, bowel a nd vascular assessment is limited due to lack of IV and oral contrast. All CT scans are performed using dose optimization technique as appropriate and may include automated exposure control or mA/KV adjustment according to patient size. FINDINGS: The lower lung singleton are clear. The liver is small in size nodular contour compatible with cirrhosis. Mild splenomegaly is seen. Mult iple stones are present in gallbladder. The adrenal glands, pancreas kidneys show no acute process. Moderate ascites is present. Ventral hernia containing ascitic fluid is present. No bowel obstruction is seen. No free air suspected. Multiple wedge compression deformities are present throughout the lumbar spine with vertebroplasty ce ment in place. IMPRESSION: Liver cirrhosis with mild splenomegaly and moderate volume ascites. Cholelithiasis. A limited non-contrast examination was performed as detailed.
== END 2018-10-08 07:00 | disposition home or self-care (01) ==
LOC: ER 02:54
DX: K70.31 Alcoholic cirrhosis of liver with ascites (principal); E87.1 Hypo-osmolality and hyponatremia; D64.9 Anemia, unspecified
CPT/HCPCS: 36415; 74176; 80048; 80076; 83690; 85025; 96374; 99284; J2405

== ENCOUNTER 2018-10-08 15:23 | Observation (INO) | payer MEDICAID ==
--- OUTSIDE RECORDS SUMMARY | 2018-10-08 15:37 | XMS REPORT ---
:1965 [facility] [place] [address] [place] [id number] Care Team Providers Name Role Phone INGRID JUNIOR Unavailable Unavailable BRANDO AGUILAR Unavailable Unavailable RYANNE LARKIN Unavailable Unavailable BRYAN MUSA Unavailable Unavailable ANDREA DENTON Unavailable Unavailable OWEN MASON Unavailable Unavailable MARIAA HEATH Unavailable Unavailable JULIO ENRIQUEZ Unavailable Unavailable JUNA PIMENTEL Unavailable Unavailable Problems This patient has no known problems. Allergies, Adverse Reactions, Alerts This patient has no known allergies or adverse reactions. Medications This patient has no known medications. Results Test Description Test Time Test Comments Text Results Atomic Results Result Comments BODY FLUID CULTURE + GRAM STAIN 2018-09-12 09:32:00 Test Item Value Reference Range Comments CULTURE (BEAKER) (test dvyl=1069) No growth GRAM STAIN RESULT (BEAKER) (test caxv=2545) No WBCs GRAM STAIN RESULT (BEAKER) (test lhql=53851) No organisms seen POCT-GLUCOSE [id number] 07:52:00 Test Item Value Reference Range Comments POC-GLUCOSE METER (BEAKER) 115 mg/dL 70-[address] [facility] [address] [place] [address] (test dfns=1515) [facility] [address] [id number] 05:18:00 Test Item Value Reference Range Comments MAGNESIUM (BEAKER) (test oylh=304) 1.9 mg/dL 1.6-2.6 COMPREHENSIVE METABOLIC [id number] 05:18:00 Test Item Value Reference Range Comments TOTAL PROTEIN (BEAKER) 5.2 gm/dL 6.0-8.3 (test kwqo=583) ALBUMIN (BEAKER) (test 3.4 g/dL 3.5-5.0 oucl=3696) ALKALINE PHOSPHATASE 113 U/L 40-150 (BEAKER) (test wdae=560) BILIRUBIN TOTAL (BEAKER) 2.9 mg/dL 0.2-1.2 (test cflp=647) SODIUM (BEAKER) (test 131 meq/L 136-145 fnkl=756) POTASSIUM (BEAKER) (test 4.0 meq/L 3.5-5.1 hvqc=329) CHLORIDE (BEAKER) (test 101 meq/L 98-107 wvhj=615) CO2 (BEAKER) (test 21 meq/L 22-29 kfdu=904) BLOOD UREA NITROGEN 28 mg/dL 7-21 (BEAKER) (test vwpx=013) CREATININE (BEAKER) (test 1.65 mg/dL 0.57-1.25 iqxv=210) GLUCOSE RANDOM (BEAKER) 122 mg/dL 70-105 (test nosr=977) CALCIUM (BEAKER) (test 9.3 mg/dL 8.4-10.2 leyn=336) AST (SGOT) (BEAKER) (test 15 U/L 5-34 fxmb=062) ALT (SGPT) (BEAKER) (test 8 U/L 6-55 kmcq=580) EGFR (BEAKER) (test 44 mL/min/1.73 sq m ESTIMATED GFR IS NOT fsuc=4635) ACCURATE CREATININE CLEARANCE IN PREDICTING GLOMERULAR FILTRATION RATE. ESTIMATED GFR IS NOT APPLICABLE FOR DIALYSIS PATIENTS. Specimen slightly ictericPROTHROMBIN [id number] 04:48:00 Test Item Value Reference Range Comments PROTIME (BEAKER) (test fxvo=938) 20.9 seconds 11.7-14.7 INR (BEAKER) (test rlpo=821) 1.8 <=5.9 RECOMMENDED COUMADIN/WARFARIN INR THERAPY RANGESSTANDARD DOSE: 2.0 - 3.0 Includes: PROPHYLAXIS forvenous thrombosis, systemic embolization; TREATMENT for venous thrombosis and/or pulmonary embolus.HIGH RISK: Target INR is 2.5-3.5 for patients with mechanical heart valves.CBC W/PLT COUNT & AUTO [id number] 04:45:00 Test Item Value Reference Range Comments WHITE BLOOD CELL COUNT (BEAKER) (test zwov=517) 3.4 K/ L 3.5-10.5 RED BLOOD CELL COUNT (BEAKER) (test xzya=279) 2.55 M/ L 4.63-6.08 HEMOGLOBIN (BEAKER) (test gafq=379) 8.1 GM/DL 13.7-17.5 HEMATOCRIT (BEAKER) (test mdsh=249) 24.0 % 40.1-51.0 MEAN CORPUSCULAR VOLUME (BEAKER) (test kmjh=043) 94.1 fL 79.0-92.2 MEAN CORPUSCULAR HEMOGLOBIN (BEAKER) (test 31.8 pg 25.7-32.2 phhw=616) MEAN CORPUSCULAR HEMOGLOBIN CONC (BEAKER) (test 33.8 GM/DL 32.3-36.5 lshk=968) RED CELL DISTRIBUTION WIDTH (BEAKER) (test 15.8 % 11.6-14.4 ukyt=250) PLATELET COUNT (BEAKER) (test xlmr=839) 41 K/CU MM 150-450 MEAN PLATELET VOLUME (BEAKER) (test flum=698) 10.0 fL 9.4-12.4 NUCLEATED RED BLOOD CELLS (BEAKER) (test 0 /100 WBC 0-0 xxcw=643) NEUTROPHILS RELATIVE PERCENT (BEAKER) (test 63 % powi=389) LYMPHOCYTES RELATIVE PERCENT (BEAKER) (test 19 % svow=048) MONOCYTES RELATIVE PERCENT (BEAKER) (test 16 % xipg=159) EOSINOPHILS RELATIVE PERCENT (BEAKER) (test 2 % zygk=934) BASOPHILS RELATIVE PERCENT (BEAKER) (test 0 % vaiu=998) NEUTROPHILS ABSOLUTE COUNT (BEAKER) (test 2.13 K/ L 1.78-5.38 ytxe=065) LYMPHOCYTES ABSOLUTE COUNT (BEAKER) (test 0.62 K/ L 1.32-3.57 phgr=592) MONOCYTES ABSOLUTE COUNT (BEAKER) (test gptu=723) 0.52 K/ L 0.30-0.82 EOSINOPHILS ABSOLUTE COUNT (BEAKER) (test 0.08 K/ L 0.04-0.54 btrr=041) BASOPHILS ABSOLUTE COUNT (BEAKER) (test atka=675) 0.00 K/ L 0.01-0.08 IMMATURE GRANULOCYTES-RELATIVE PERCENT (BEAKER) 0 % 0-1 (test hctr=1041) POCT-GLUCOSE [id number] 21:35:00 Test Item Value Reference Range Comments POC-GLUCOSE METER (BEAKER) 215 mg/dL 70-[address] [facility] [address] [facility] (test ebyx=8284) [facility] [address] POCT-GLUCOSE [id number] 18:17:00 Test Item Value Reference Range Comments POC-GLUCOSE METER (BEAKER) 149 mg/dL 70-[address] [facility] [address] [facility] (test qkrs=6247) [facility] [address] COMPREHENSIVE METABOLIC [id number] 07:34:00 Test Item Value Reference Range Comments TOTAL PROTEIN (BEAKER) 4.7 gm/dL 6.0-8.3 Specimen slightly (test iwls=210) hemolyzed ALBUMIN (BEAKER) (test 3.0 g/dL 3.5-5.0 Specimen slightly xnci=4186) hemolyzed ALKALINE PHOSPHATASE 107 U/L 40-150 (BEAKER) (test xswc=318) BILIRUBIN TOTAL (BEAKER) 3.1 mg/dL 0.2-1.2 Specimen slightly (test mzkn=821) hemolyzed SODIUM (BEAKER) (test 125 meq/L 136-145 lsmq=397) POTASSIUM (BEAKER) (test 4.9 meq/L 3.5-5.1 Specimen slightly mqwx=490) hemolyzed CHLORIDE (BEAKER) (test 96 meq/L 98-107 emov=475) CO2 (BEAKER) (test 24 meq/L 22-29 igud=523) BLOOD UREA NITROGEN 30 mg/dL 7-21 (BEAKER) (test rzob=834) CREATININE (BEAKER) (test 1.61 mg/dL 0.57-1.25 Specimen slightly siel=577) hemolyzed GLUCOSE RANDOM (BEAKER) 127 mg/dL 70-105 (test oxaw=095) CALCIUM (BEAKER) (test 8.6 mg/dL 8.4-10.2 mhuq=043) AST (SGOT) (BEAKER) (test 17 U/L 5-34 Specimen slightly bdfy=334) hemolyzed ALT (SGPT) (BEAKER) (test < U/L 6-55 Specimen slightly qely=960) hemolyzed EGFR (BEAKER) (test 45 mL/min/1.73 sq m ESTIMATED GFR IS NOT inzx=1659) ACCURATE CREATININE CLEARANCE IN PREDICTING GLOMERULAR FILTRATION RATE. ESTIMATED GFR IS NOT APPLICABLE FOR DIALYSIS PATIENTS. Specimen slightly [id number] 06:49:00 Test Item Value Reference Range Comments PHOSPHORUS (BEAKER) (test puff=812) 3.0 mg/dL 2.3-4.7 [id number] 06:49:00 Test Item Value Reference Range Comments MAGNESIUM (BEAKER) (test iosq=441) 2.0 mg/dL 1.6-2.6 PROTHROMBIN [id number] 06:39:00 Test Item Value Reference Range Comments PROTIME (BEAKER) (test dmft=934) 23.0 seconds 11.7-14.7 INR (BEAKER) (test yjnw=700) 2.0 <=5.9 RECOMMENDED COUMADIN/WARFARIN INR THERAPY RANGESSTANDARD DOSE: 2.0 - 3.0 Includes: PROPHYLAXIS forvenous thrombosis, systemic embolization; TREATMENT for venous thrombosis and/or pulmonary embolus.HIGH RISK: Target INR is 2.5-3.5 for patients with mechanical heart valves.CBC W/PLT COUNT & AUTO [id number] 06:37:00 Test Item Value Reference Range Comments WHITE BLOOD CELL COUNT (BEAKER) (test etfi=361) 3.3 K/ L 3.5-10.5 RED BLOOD CELL COUNT (BEAKER) (test ndfx=703) 2.43 M/ L 4.63-6.08 HEMOGLOBIN (BEAKER) (test famp=756) 7.8 GM/DL 13.7-17.5 HEMATOCRIT (BEAKER) (test nlee=534) 22.7 % 40.1-51.0 MEAN CORPUSCULAR VOLUME (BEAKER) (test oyfu=885) 93.4 fL 79.0-92.2 MEAN CORPUSCULAR HEMOGLOBIN (BEAKER) (test 32.1 pg 25.7-32.2 tfmb=756) MEAN CORPUSCULAR HEMOGLOBIN CONC (BEAKER) (test 34.4 GM/DL 32.3-36.5 xymk=191) RED CELL DISTRIBUTION WIDTH (BEAKER) (test 15.7 % 11.6-14.4 ooma=396) PLATELET COUNT (BEAKER) (test svss=201) 37 K/CU MM 150-450 MEAN PLATELET VOLUME (BEAKER) (test rwkv=590) 9.6 fL 9.4-12.4 NUCLEATED RED BLOOD CELLS (BEAKER) (test 0 /100 WBC 0-0 kyjg=902) NEUTROPHILS RELATIVE PERCENT (BEAKER) (test 70 % aqzi=127) LYMPHOCYTES RELATIVE PERCENT (BEAKER) (test 16 % uuen=017) MONOCYTES RELATIVE PERCENT (BEAKER) (test 11 % smip=284) EOSINOPHILS RELATIVE PERCENT (BEAKER) (test 2 % gtyq=388) BASOPHILS RELATIVE PERCENT (BEAKER) (test 0 % pjjz=016) NEUTROPHILS ABSOLUTE COUNT (BEAKER) (test 2.29 K/ L 1.78-5.38 lapr=405) LYMPHOCYTES ABSOLUTE COUNT (BEAKER) (test 0.51 K/ L 1.32-3.57 qygb=842) MONOCYTES ABSOLUTE COUNT (BEAKER) (test piuh=416) 0.37 K/ L 0.30-0.82 EOSINOPHILS ABSOLUTE COUNT (BEAKER) (test 0.07 K/ L 0.04-0.54 nryo=305) BASOPHILS ABSOLUTE COUNT (BEAKER) (test oswh=588) 0.01 K/ L 0.01-0.08 IMMATURE GRANULOCYTES-RELATIVE PERCENT (BEAKER) 0 % 0-1 (test jtra=4452) CALCIUM, [id number] 06:36:00 Test Item Value Reference Range Comments CALCIUM IONIZED (BEAKER) (test ydky=897) 1.00 mmol/L 1.12-1.27 PH, BLOOD (BEAKER) (test mvro=1450) 7.53 POCT-GLUCOSE [id number] 22:31:00 Test Item Value Reference Range Comments POC-GLUCOSE METER (BEAKER) 185 mg/dL 70-110 TESTED AT [address] (test msgb=2349) [facility] [address] POCT-GLUCOSE [id number] 16:03:00 Test Item Value Reference Range Comments POC-GLUCOSE METER (BEAKER) 166 mg/dL 70-110 TESTED AT [address] (test dtbw=7438) [facility] [address] POCT-GLUCOSE [id number] 12:05:00 Test Item Value Reference Range Comments POC-GLUCOSE METER (BEAKER) 175 mg/dL 70-110 TESTED AT [address] (test gols=1756) [facility] [address] POCT-GLUCOSE [id number] 08:02:00 Test Item Value Reference Range Comments POC-GLUCOSE METER (BEAKER) 162 mg/dL 70-[address] [facility] [address] (test rcum=4301) [place] [address] [id number] 03:52:00 Test Item Value Reference Range Comments MAGNESIUM (BEAKER) (test 2.1 mg/dL 1.6-2.6 Specimen slightly hemolyzed ykvr=592) [id number] 03:52:00 Test Item Value Reference Range Comments PHOSPHORUS (BEAKER) (test 3.0 mg/dL 2.3-4.7 Specimen slightly hemolyzed ujqf=464) COMPREHENSIVE METABOLIC [id number] 03:52:00 Test Item Value Reference Range Comments TOTAL PROTEIN (BEAKER) 4.9 gm/dL 6.0-8.3 Specimen slightly (test azhs=011) hemolyzed ALBUMIN (BEAKER) (test 3.2 g/dL 3.5-5.0 Specimen slightly wqky=5461) hemolyzed ALKALINE PHOSPHATASE 109 U/L 40-150 (BEAKER) (test czwx=602) BILIRUBIN TOTAL (BEAKER) 2.7 mg/dL 0.2-1.2 Specimen slightly (test pmwk=058) hemolyzed SODIUM (BEAKER) (test 125 meq/L 136-145 gmht=330) POTASSIUM (BEAKER) (test 4.7 meq/L 3.5-5.1 Specimen slightly hsfj=200) hemolyzed CHLORIDE (BEAKER) (test 96 meq/L 98-107 msxd=451) CO2 (BEAKER) (test 23 meq/L 22-29 lmcp=473) BLOOD UREA NITROGEN 27 mg/dL 7-21 (BEAKER) (test lhiz=720) CREATININE (BEAKER) (test 1.86 mg/dL 0.57-1.25 Specimen slightly xxjv=185) hemolyzed GLUCOSE RANDOM (BEAKER) 164 mg/dL 70-105 (test pidb=509) CALCIUM (BEAKER) (test 8.4 mg/dL 8.4-10.2 bnje=918) AST (SGOT) (BEAKER) (test 17 U/L 5-34 Specimen slightly iory=787) hemolyzed ALT (SGPT) (BEAKER) (test 6 U/L 6-55 Specimen slightly hvlh=191) hemolyzed EGFR (BEAKER) (test 38 mL/min/1.73 sq m ESTIMATED GFR IS NOT yrrk=7562) ACCURATE CREATININE CLEARANCE IN PREDICTING GLOMERULAR FILTRATION RATE. ESTIMATED GFR IS NOT APPLICABLE FOR DIALYSIS PATIENTS. Specimen slightly ictericCALCIUM, [id number] 03:13:00 Test Item Value Reference Range Comments CALCIUM IONIZED (BEAKER) (test aeya=438) 0.94 mmol/L 1.12-1.27 PH, BLOOD (BEAKER) (test dvdx=4325) 7.55 PROTHROMBIN [id number] 03:10:00 Test Item Value Reference Range Comments PROTIME (BEAKER) (test nany=642) 22.6 seconds 11.7-14.7 INR (BEAKER) (test zbtx=646) 2.0 <=5.9 RECOMMENDED COUMADIN/WARFARIN INR THERAPY RANGESSTANDARD DOSE: 2.0 - 3.0 Includes: PROPHYLAXIS forvenous thrombosis, systemic embolization; TREATMENT for venous thrombosis and/or pulmonary embolus.HIGH RISK: Target INR is 2.5-3.5 for patients with mechanical heart valves.CBC W/PLT COUNT & AUTO [id number] 03:03:00 Test Item Value Reference Range Comments WHITE BLOOD CELL COUNT (BEAKER) (test efcz=963) 3.4 K/ L 3.5-10.5 RED BLOOD CELL COUNT (BEAKER) (test qvfd=005) 2.46 M/ L 4.63-6.08 HEMOGLOBIN (BEAKER) (test days=938) 7.8 GM/DL 13.7-17.5 HEMATOCRIT (BEAKER) (test cgjg=031) 23.5 % 40.1-51.0 MEAN CORPUSCULAR VOLUME (BEAKER) (test gslw=707) 95.5 fL 79.0-92.2 MEAN CORPUSCULAR HEMOGLOBIN (BEAKER) (test 31.7 pg 25.7-32.2 jmin=024) MEAN CORPUSCULAR HEMOGLOBIN CONC (BEAKER) (test 33.2 GM/DL 32.3-36.5 kkjg=320) RED CELL DISTRIBUTION WIDTH (BEAKER) (test 15.6 % 11.6-14.4 gtxp=845) PLATELET COUNT (BEAKER) (test tjxd=324) 44 K/CU MM 150-450 MEAN PLATELET VOLUME (BEAKER) (test yyjq=956) 10.6 fL 9.4-12.4 NUCLEATED RED BLOOD CELLS (BEAKER) (test 0 /100 WBC 0-0 jvvz=698) NEUTROPHILS RELATIVE PERCENT (BEAKER) (test 79 % bxhj=531) LYMPHOCYTES RELATIVE PERCENT (BEAKER) (test 12 % ptob=583) MONOCYTES RELATIVE PERCENT (BEAKER) (test 8 % garc=067) EOSINOPHILS RELATIVE PERCENT (BEAKER) (test 0 % hnem=376) BASOPHILS RELATIVE PERCENT (BEAKER) (test 0 % ftyw=665) NEUTROPHILS ABSOLUTE COUNT (BEAKER) (test 2.67 K/ L 1.78-5.38 hmae=175) LYMPHOCYTES ABSOLUTE COUNT (BEAKER) (test 0.41 K/ L 1.32-3.57 lbmk=921) MONOCYTES ABSOLUTE COUNT (BEAKER) (test udts=117) 0.27 K/ L 0.30-0.82 EOSINOPHILS ABSOLUTE COUNT (BEAKER) (test 0.01 K/ L 0.04-0.54 metr=974) BASOPHILS ABSOLUTE COUNT (BEAKER) (test dtap=460) 0.01 K/ L 0.01-0.08 IMMATURE GRANULOCYTES-RELATIVE PERCENT (BEAKER) 0 % 0-1 (test hawm=0331) POCT-GLUCOSE [id number] 22:50:00 Test Item Value Reference Range Comments POC-GLUCOSE METER (BEAKER) 199 mg/dL 70-[address] [facility] [address] [facility] (test xxni=1747) [facility] [address] BODY FLUID CELL COUNT WITH [id number] 21:09:00 Test Item Value Reference Range Comments APPEARANCE FLUID (BEAKER) (test znqm=627) Clear Clear COLOR FLUID (BEAKER) (test eizm=776) Yellow Colorless, Straw RBC FLUID (BEAKER) (test bwez=655) 140 /cu mm <=1 ADJUSTED WBC FLUID (BEAKER) (test kdkw=7977) 70 /cu mm <=5 LINING CELLS (BEAKER) (test exxg=8127) 0 /cu mm <=1 NEUTROPHILS FLUID (BEAKER) (test lvyp=6236) 5 % LYMPHS FLUID (BEAKER) (test vgud=444) 18 % MONO/MACROPHAGE FLUID (BEAKER) (test rajv=288) 77 % EOSINOPHILS FLUID (BEAKER) (test ivtb=623) 0 % BASO FLUID (BEAKER) (test ocka=250) 0 % CONTAINER BODY FLUID (BEAKER) (test jjbt=4419) EDTA Tube CORTISOL,60 [id number] 20:10:00 Test Item Value Reference Range Comments CORTISOL BASELINE NETWORKED (BEAKER) (test 5.6 mcg/dL cngd=5468) CORTISOL 30 MINUTE NETWORKED (BEAKER) (test 13.7 mcg/dL ioox=0763) CORTISOL, 60 MINUTE (BEAKER) (test qcrl=8362) 17.1 ug/dL ACTH STIMULATION TEST INTERPRETATION GUIDELINES(Synonyms: [...] serum cortisollevel 60 minutes after cosyntropin administration.CORTISOL,30 [id number] 19:45:00 Test Item Value Reference Range Comments CORTISOL BASELINE NETWORKED (BEAKER) (test 5.6 mcg/dL wswk=6515) CORTISOL, 30 MINUTE (BEAKER) (test wquc=7313) 13.7 ug/dL ACTH STIMULATION TEST INTERPRETATION GUIDELINES(Synonyms: [...] serum cortisollevel 60 minutes after cosyntropin administration.U/S, [id number] 19:13:00Reason for exam:->therapeuticFINAL REPORT PROCEDURE: Ultrasound- guided paracentesis. INDICATION: Ascites. DESCRIPTION: After obtaining informed written consent, ultrasound scan of the abdomen identified ascites in the right lower quadrant. The overlying skin was prepped and draped in the usual, sterile fashion and local 1% lidocaine anesthesia was administered. A 5 Maldivian catheter was advanced into the peritoneal cavity and 6000 mL of area fluid was removed. The catheter was removed without immediate complication. Samples were sent for analysis. IMPRESSION:Uncomplicated ultrasound-guided paracentesis with 6000 mL of fluid removed. Signed: Stuart Dupree [facility] Verified Date/Time: 09/08/2018 19 :13:16 Reading Location: [address] Ultrasound Reading Room Electronically signed by: Claudia WEAVER 09/08/2018 07:13 PMCORTISOL, [id number] 18:54:00 Test Item Value Reference Range Comments CORTISOL, BASELINE (TUNG) (test dvfp=1515) 5.6 ug/dL ACTH STIMULATION TEST INTERPRETATION GUIDELINES(Synonyms: [...] serum cortisollevel 60 minutes after cosyntropin administration.POCT-GLUCOSE [id number] 12:49:00 Test Item Value Reference Range Comments POC-GLUCOSE METER (BEAKER) 184 mg/dL 70-110 TESTED AT [address] (test atnl=1000) [place] [address] POCT-GLUCOSE [id number] 07:56:00 Test Item Value Reference Range Comments POC-GLUCOSE METER (BEAKER) 174 mg/dL 70-110 TESTED AT [address] (test eiwe=2487) [place] [address] B-TYPE NATRIURETIC FACTOR (BNP)2018-09-08 05:20:00 Test Item Value Reference Range Comments B-TYPE NATRIURETIC PEPTIDE (BEAKER) (test 900 pg/mL 0-100 yzkj=221) [id number] 05:15:00 Test Item Value Reference Range Comments PHOSPHORUS (BEAKER) (test wbvx=852) 3.2 mg/dL 2.3-4.7 [id number] 05:15:00 Test Item Value Reference Range Comments MAGNESIUM (BEAKER) (test mhvt=668) 2.1 mg/dL 1.6-2.6 COMPREHENSIVE METABOLIC [id number] 05:15:00 Test Item Value Reference Range Comments TOTAL PROTEIN (BEAKER) 4.9 gm/dL 6.0-8.3 (test wfkd=445) ALBUMIN (BEAKER) (test 3.2 g/dL 3.5-5.0 omjd=0742) ALKALINE PHOSPHATASE 109 U/L 40-150 (BEAKER) (test swjf=511) BILIRUBIN TOTAL (BEAKER) 2.7 mg/dL 0.2-1.2 (test iiuh=257) SODIUM (BEAKER) (test 128 meq/L 136-145 mkyl=337) POTASSIUM (BEAKER) (test 3.9 meq/L 3.5-5.1 fzcf=516) CHLORIDE (BEAKER) (test 98 meq/L 98-107 lwmd=269) CO2 (BEAKER) (test 23 meq/L 22-29 pgfj=195) BLOOD UREA NITROGEN 27 mg/dL 7-21 (BEAKER) (test twwt=870) CREATININE (BEAKER) (test 2.17 mg/dL 0.57-1.25 mvfz=309) GLUCOSE RANDOM (BEAKER) 136 mg/dL 70-105 (test vfmy=142) CALCIUM (BEAKER) (test 8.6 mg/dL 8.4-10.2 ubwq=098) AST (SGOT) (BEAKER) (test 15 U/L 5-34 rjon=161) ALT (SGPT) (BEAKER) (test 7 U/L 6-55 lygx=141) EGFR (BEAKER) (test 32 mL/min/1.73 sq m ESTIMATED GFR IS NOT msbr=2418) ACCURATE CREATININE CLEARANCE IN PREDICTING GLOMERULAR FILTRATION RATE. ESTIMATED GFR IS NOT APPLICABLE FOR DIALYSIS PATIENTS. Specimen slightly ictericPROTHROMBIN [id number] 05:01:00 Test Item Value Reference Range Comments PROTIME (BEAKER) (test hrvu=181) 22.0 seconds 11.7-14.7 INR (BEAKER) (test xnad=019) 1.9 <=5.9 RECOMMENDED COUMADIN/WARFARIN INR THERAPY RANGESSTANDARD DOSE: 2.0 - 3.0 Includes: PROPHYLAXIS forvenous thrombosis, systemic embolization; TREATMENT for venous thrombosis and/or pulmonary embolus.HIGH RISK: Target INR is 2.5-3.5 for patients with mechanical heart valves.CBC W/PLT COUNT & AUTO [id number] 04:55:00 Test Item Value Reference Range Comments WHITE BLOOD CELL COUNT (BEAKER) (test kyet=292) 4.3 K/ L 3.5-10.5 RED BLOOD CELL COUNT (BEAKER) (test ukov=986) 2.46 M/ L 4.63-6.08 HEMOGLOBIN (BEAKER) (test cgqk=043) 7.9 GM/DL 13.7-17.5 HEMATOCRIT (BEAKER) (test tlzq=129) 23.3 % 40.1-51.0 MEAN CORPUSCULAR VOLUME (BEAKER) (test dlvp=022) 94.7 fL 79.0-92.2 MEAN CORPUSCULAR HEMOGLOBIN (BEAKER) (test 32.1 pg 25.7-32.2 qqyb=958) MEAN CORPUSCULAR HEMOGLOBIN CONC (BEAKER) (test 33.9 GM/DL 32.3-36.5 cyxm=352) RED CELL DISTRIBUTION WIDTH (BEAKER) (test 15.6 % 11.6-14.4 mzwr=377) PLATELET COUNT (BEAKER) (test ijkt=279) 43 K/CU MM 150-450 MEAN PLATELET VOLUME (BEAKER) (test lhtq=574) 9.6 fL 9.4-12.4 NUCLEATED RED BLOOD CELLS (BEAKER) (test 0 /100 WBC 0-0 irru=090) NEUTROPHILS RELATIVE PERCENT (BEAKER) (test 63 % xjnl=992) LYMPHOCYTES RELATIVE PERCENT (BEAKER) (test 13 % lpuo=034) MONOCYTES RELATIVE PERCENT (BEAKER) (test 19 % zpfr=378) EOSINOPHILS RELATIVE PERCENT (BEAKER) (test 5 % fycj=014) BASOPHILS RELATIVE PERCENT (BEAKER) (test 0 % xmmx=040) NEUTROPHILS ABSOLUTE COUNT (BEAKER) (test 2.72 K/ L 1.78-5.38 ooeo=316) LYMPHOCYTES ABSOLUTE COUNT (BEAKER) (test 0.55 K/ L 1.32-3.57 frzs=718) MONOCYTES ABSOLUTE COUNT (BEAKER) (test tsiu=286) 0.81 K/ L 0.30-0.82 EOSINOPHILS ABSOLUTE COUNT (BEAKER) (test 0.21 K/ L 0.04-0.54 qwhy=991) BASOPHILS ABSOLUTE COUNT (BEAKER) (test dysa=310) 0.01 K/ L 0.01-0.08 IMMATURE GRANULOCYTES-RELATIVE PERCENT (BEAKER) 0 % 0-1 (test aypr=0436) POCT-GLUCOSE [id number] 23:33:00 Test Item Value Reference Range Comments POC-GLUCOSE METER (BEAKER) 156 mg/dL 70-[address] [facility] [address] [facility] (test hegt=2630) [facility] [id number] POCT-GLUCOSE [id number] 18:09:00 Test Item Value Reference Range Comments POC-GLUCOSE METER (BEAKER) 170 mg/dL 70-[address] [facility] [address] [place] [address] (test hhxa=1103) [facility] [address] POCT-GLUCOSE [id number] 12:01:00 Test Item Value Reference Range Comments POC-GLUCOSE METER (BEAKER) 181 mg/dL 70-110 TESTED AT [address] (test ehnf=1227) [facility] [address] PROTHROMBIN [id number] 08:17:00 Test Item Value Reference Range Comments PROTIME (BEAKER) (test rgdt=058) 21.9 seconds 11.7-14.7 INR (BEAKER) (test chvh=320) 1.9 <=5.9 RECOMMENDED COUMADIN/WARFARIN INR THERAPY RANGESSTANDARD DOSE: 2.0 - 3.0 Includes: PROPHYLAXIS forvenous thrombosis, systemic embolization; TREATMENT for venous thrombosis and/or pulmonary embolus.HIGH RISK: Target INR is 2.5-3.5 for patients with mechanical heart valves.POCT-GLUCOSE [id number] 08:07:00 Test Item Value Reference Range Comments POC-GLUCOSE METER (BEAKER) 205 mg/dL 70-110 TESTED AT [address] (test nksr=7699) [facility] [address] COMPREHENSIVE METABOLIC [id number] 07:29:00 Test Item Value Reference Range Comments TOTAL PROTEIN (BEAKER) 4.9 gm/dL 6.0-8.3 (test lual=203) ALBUMIN (BEAKER) (test 3.3 g/dL 3.5-5.0 btry=7133) ALKALINE PHOSPHATASE 106 U/L 40-150 (BEAKER) (test jvoa=947) BILIRUBIN TOTAL (BEAKER) 2.6 mg/dL 0.2-1.2 (test xghk=138) SODIUM (BEAKER) (test 129 meq/L 136-145 zgce=686) POTASSIUM (BEAKER) (test 4.9 meq/L 3.5-5.1 vjwe=406) CHLORIDE (BEAKER) (test 98 meq/L 98-107 neej=386) CO2 (BEAKER) (test 23 meq/L 22-29 ixki=023) BLOOD UREA NITROGEN 28 mg/dL 7-21 (BEAKER) (test qrhn=168) CREATININE (BEAKER) (test 2.31 mg/dL 0.57-1.25 szfx=518) GLUCOSE RANDOM (BEAKER) 172 mg/dL 70-105 (test nxzc=214) CALCIUM (BEAKER) (test 8.5 mg/dL 8.4-10.2 psgh=776) AST (SGOT) (BEAKER) (test 15 U/L 5-34 iaoa=672) ALT (SGPT) (BEAKER) (test 6 U/L 6-55 pmto=768) EGFR (BEAKER) (test 30 mL/min/1.73 sq m ESTIMATED GFR IS NOT jais=8726) ACCURATE CREATININE CLEARANCE IN PREDICTING GLOMERULAR FILTRATION RATE. ESTIMATED GFR IS NOT APPLICABLE FOR DIALYSIS PATIENTS. Specimen slightly ictericCBC W/PLT COUNT & AUTO [id number] 07:11 :00 Test Item Value Reference Range Comments WHITE BLOOD CELL COUNT (BEAKER) (test xraj=939) 4.5 K/ L 3.5-10.5 RED BLOOD CELL COUNT (BEAKER) (test jkjy=450) 2.47 M/ L 4.63-6.08 HEMOGLOBIN (BEAKER) (test qupv=393) 7.8 GM/DL 13.7-17.5 HEMATOCRIT (BEAKER) (test iisu=877) 23.3 % 40.1-51.0 MEAN CORPUSCULAR VOLUME (BEAKER) (test jajd=154) 94.3 fL 79.0-92.2 MEAN CORPUSCULAR HEMOGLOBIN (BEAKER) (test 31.6 pg 25.7-32.2 ywtz=525) MEAN CORPUSCULAR HEMOGLOBIN CONC (BEAKER) (test 33.5 GM/DL 32.3-36.5 dohq=887) RED CELL DISTRIBUTION WIDTH (BEAKER) (test 15.4 % 11.6-14.4 qqkt=528) PLATELET COUNT (BEAKER) (test mopu=376) 43 K/CU MM 150-450 MEAN PLATELET VOLUME (BEAKER) (test jotz=147) 8.7 fL 9.4-12.4 NUCLEATED RED BLOOD CELLS (BEAKER) (test 0 /100 WBC 0-0 nkke=203) NEUTROPHILS RELATIVE PERCENT (BEAKER) (test 64 % qwgn=674) LYMPHOCYTES RELATIVE PERCENT (BEAKER) (test 11 % ebti=397) MONOCYTES RELATIVE PERCENT (BEAKER) (test 20 % tfnn=420) EOSINOPHILS RELATIVE PERCENT (BEAKER) (test 4 % zyhf=577) BASOPHILS RELATIVE PERCENT (BEAKER) (test 0 % eqlk=748) NEUTROPHILS ABSOLUTE COUNT (BEAKER) (test 2.86 K/ L 1.78-5.38 gwwb=186) LYMPHOCYTES ABSOLUTE COUNT (BEAKER) (test 0.49 K/ L 1.32-3.57 vwhh=029) MONOCYTES ABSOLUTE COUNT (BEAKER) (test rzxc=099) 0.90 K/ L 0.30-0.82 EOSINOPHILS ABSOLUTE COUNT (BEAKER) (test 0.18 K/ L 0.04-0.54 voju=769) BASOPHILS ABSOLUTE COUNT (BEAKER) (test rnla=034) 0.02 K/ L 0.01-0.08 IMMATURE GRANULOCYTES-RELATIVE PERCENT (BEAKER) 0 % 0-1 (test sptl=5642) POCT-GLUCOSE [id number] 22:31:00 Test Item Value Reference Range Comments POC-GLUCOSE METER (BEAKER) 161 mg/dL 70-110 TESTED AT [address] (test rhrr=2079) [facility] [address] POCT-GLUCOSE [id number] 16:31:00 Test Item Value Reference Range Comments POC-GLUCOSE METER (BEAKER) 135 mg/dL 70-110 TESTED AT [address] (test knol=1168) [place] [id number] POCT-GLUCOSE [id number] 12:16:00 Test Item Value Reference Range Comments POC-GLUCOSE METER (BEAKER) 144 mg/dL 70-110 TESTED AT [address] (test khws=9560) [place] [id number] POCT-GLUCOSE [id number] 07:53:00 Test Item Value Reference Range Comments POC-GLUCOSE METER (BEAKER) 93 mg/dL 70-110 TESTED AT [address] (test iext=1316) [place] [address] COMPREHENSIVE METABOLIC [id number] 06:55:00 Test Item Value Reference Range Comments TOTAL PROTEIN (BEAKER) 4.8 gm/dL 6.0-8.3 (test hall=449) ALBUMIN (BEAKER) (test 3.3 g/dL 3.5-5.0 mllj=6233) ALKALINE PHOSPHATASE 103 U/L 40-150 (BEAKER) (test udwz=944) BILIRUBIN TOTAL (BEAKER) 2.7 mg/dL 0.2-1.2 (test gtru=750) SODIUM (BEAKER) (test 125 meq/L 136-145 cdpb=980) POTASSIUM (BEAKER) (test 4.6 meq/L 3.5-5.1 puuh=596) CHLORIDE (BEAKER) (test 96 meq/L 98-107 xqbz=586) CO2 (BEAKER) (test 22 meq/L 22-29 hpul=383) BLOOD UREA NITROGEN 30 mg/dL 7-21 (BEAKER) (test exnn=260) CREATININE (BEAKER) (test 2.01 mg/dL 0.57-1.25 zryx=214) GLUCOSE RANDOM (BEAKER) 88 mg/dL 70-105 (test lucf=351) CALCIUM (BEAKER) (test 8.5 mg/dL 8.4-10.2 nyng=253) AST (SGOT) (BEAKER) (test 17 U/L 5-34 zrsk=315) ALT (SGPT) (BEAKER) (test 7 U/L 6-55 pqbt=979) EGFR (BEAKER) (test 35 mL/min/1.73 sq m ESTIMATED GFR IS NOT rkwv=2155) ACCURATE CREATININE CLEARANCE IN PREDICTING GLOMERULAR FILTRATION RATE. ESTIMATED GFR IS NOT APPLICABLE FOR DIALYSIS PATIENTS. Specimen slightly ictericPROTHROMBIN [id number] 06:10:00 Test Item Value Reference Range Comments PROTIME (BEAKER) (test rwdc=277) 23.2 seconds 11.7-14.7 INR (BEAKER) (test yhwv=073) 2.1 <=5.9 RECOMMENDED COUMADIN/WARFARIN INR THERAPY RANGESSTANDARD DOSE: 2.0 - 3.0 Includes: PROPHYLAXIS forvenous thrombosis, systemic embolization; TREATMENT for venous thrombosis and/or pulmonary embolus.HIGH RISK: Target INR is 2.5-3.5 for patients with mechanical heart valves.POCT-GLUCOSE [id number] 22:42:00 Test Item Value Reference Range Comments POC-GLUCOSE METER (BEAKER) 124 mg/dL 70-[address] [facility] [address] (test avps=5619) [facility] [address] POCT-GLUCOSE [id number] 17:04:00 Test Item Value Reference Range Comments POC-GLUCOSE METER (BEAKER) 86 mg/dL 70-[address] [facility] [address] [facility] (test tofd=5412) [facility] [address] POCT-GLUCOSE [id number] 12:08:00 Test Item Value Reference Range Comments POC-GLUCOSE METER (BEAKER) 159 mg/dL 70-[address] [facility] [address] [facility] (test mfbe=1255) [facility] [address] [id number] 08:39:00 Test Item Value Reference Range Comments PHOSPHORUS (BEAKER) (test wtpq=285) 3.9 mg/dL 2.3-4.7 [id number] 08:39:00 Test Item Value Reference Range Comments MAGNESIUM (BEAKER) (test muic=531) 2.1 mg/dL 1.6-2.6 COMPREHENSIVE METABOLIC [id number] 08:39:00 Test Item Value Reference Range Comments TOTAL PROTEIN (BEAKER) 5.2 gm/dL 6.0-8.3 (test duuv=185) ALBUMIN (BEAKER) (test 3.5 g/dL 3.5-5.0 wdji=3534) ALKALINE PHOSPHATASE 110 U/L 40-150 (BEAKER) (test fhqp=169) BILIRUBIN TOTAL (BEAKER) 2.4 mg/dL 0.2-1.2 (test updo=273) SODIUM (BEAKER) (test 122 meq/L 136-145 tjic=881) POTASSIUM (BEAKER) (test 4.5 meq/L 3.5-5.1 uwgg=200) CHLORIDE (BEAKER) (test 94 meq/L 98-107 pihf=885) CO2 (BEAKER) (test 20 meq/L 22-29 ubes=032) BLOOD UREA NITROGEN 31 mg/dL 7-21 (BEAKER) (test opic=257) CREATININE (BEAKER) (test 1.94 mg/dL 0.57-1.25 husq=520) GLUCOSE RANDOM (BEAKER) 127 mg/dL 70-105 (test fvjg=006) CALCIUM (BEAKER) (test 8.6 mg/dL 8.4-10.2 kvre=632) AST (SGOT) (BEAKER) (test 17 U/L 5-34 ryvk=494) ALT (SGPT) (BEAKER) (test 8 U/L 6-55 tmgy=364) EGFR (BEAKER) (test 36 mL/min/1.73 sq m ESTIMATED GFR IS NOT ffwm=5289) ACCURATE CREATININE CLEARANCE IN PREDICTING GLOMERULAR FILTRATION RATE. ESTIMATED GFR IS NOT APPLICABLE FOR DIALYSIS PATIENTS. Specimen slightly ictericPOCT-GLUCOSE [id number] 07:49:00 Test Item Value Reference Range Comments POC-GLUCOSE METER (BEAKER) 132 mg/dL 70-[address] [facility] [address] [facility] (test nvrd=0085) [place] [address] CALCIUM, [id number] 06:35:00 Test Item Value Reference Range Comments CALCIUM IONIZED (BEAKER) (test rjed=730) 1.08 mmol/L 1.12-1.27 PH, BLOOD (BEAKER) (test avpi=6371) 7.39 CBC W/PLT COUNT & AUTO [id number] 05:56:00 Test Item Value Reference Range Comments WHITE BLOOD CELL COUNT (BEAKER) (test uaqa=489) 4.1 K/ L 3.5-10.5 RED BLOOD CELL COUNT (BEAKER) (test sktm=970) 2.67 M/ L 4.63-6.08 HEMOGLOBIN (BEAKER) (test kjnp=695) 8.3 GM/DL 13.7-17.5 HEMATOCRIT (BEAKER) (test ttld=464) 24.7 % 40.1-51.0 MEAN CORPUSCULAR VOLUME (BEAKER) (test qeop=064) 92.5 fL 79.0-92.2 MEAN CORPUSCULAR HEMOGLOBIN (BEAKER) (test 31.1 pg 25.7-32.2 eaoz=420) MEAN CORPUSCULAR HEMOGLOBIN CONC (BEAKER) (test 33.6 GM/DL 32.3-36.5 niio=185) RED CELL DISTRIBUTION WIDTH (BEAKER) (test 15.0 % 11.6-14.4 eozy=810) PLATELET COUNT (BEAKER) (test hhsg=038) 58 K/CU MM 150-450 MEAN PLATELET VOLUME (BEAKER) (test oflx=601) 9.3 fL 9.4-12.4 NUCLEATED RED BLOOD CELLS (BEAKER) (test 0 /100 WBC 0-0 ywia=232) NEUTROPHILS RELATIVE PERCENT (BEAKER) (test 64 % odia=661) LYMPHOCYTES RELATIVE PERCENT (BEAKER) (test 12 % lvxg=124) MONOCYTES RELATIVE PERCENT (BEAKER) (test 18 % aayk=463) EOSINOPHILS RELATIVE PERCENT (BEAKER) (test 5 % sxsf=973) BASOPHILS RELATIVE PERCENT (BEAKER) (test 0 % byrd=074) NEUTROPHILS ABSOLUTE COUNT (BEAKER) (test 2.63 K/ L 1.78-5.38 gvou=140) LYMPHOCYTES ABSOLUTE COUNT (BEAKER) (test 0.51 K/ L 1.32-3.57 ygch=773) MONOCYTES ABSOLUTE COUNT (BEAKER) (test zqym=488) 0.74 K/ L 0.30-0.82 EOSINOPHILS ABSOLUTE COUNT (BEAKER) (test 0.21 K/ L 0.04-0.54 rcrt=826) BASOPHILS ABSOLUTE COUNT (BEAKER) (test qtvg=616) 0.01 K/ L 0.01-0.08 IMMATURE GRANULOCYTES-RELATIVE PERCENT (BEAKER) 1 % 0-1 (test tvlc=7260) PROTHROMBIN [id number] 05:49:00 Test Item Value Reference Range Comments PROTIME (BEAKER) (test akaj=664) 20.4 seconds 11.7-14.7 INR (BEAKER) (test sooz=986) 1.8 <=5.9 RECOMMENDED COUMADIN/WARFARIN INR THERAPY RANGESSTANDARD DOSE: 2.0 - 3.0 Includes: PROPHYLAXIS forvenous thrombosis, systemic embolization; TREATMENT for venous thrombosis and/or pulmonary embolus.HIGH RISK: Target INR is 2.5-3.5 for patients with mechanical heart valves.[id number] 22:31:00 Test Item Value Reference Range Comments SODIUM (BEAKER) (test exvh=740) 123 meq/L 136-145 POTASSIUM (BEAKER) (test lsav=950) 4.5 meq/L 3.5-5.1 CHLORIDE (BEAKER) (test plub=775) 94 meq/L 98-107 CO2 (BEAKER) (test dccp=870) 22 meq/L 22-29 Call results "at a decent hour" to [id number]-GLUCOSE [id number] 21: 48:00 Test Item Value Reference Range Comments POC-GLUCOSE METER (BEAKER) 144 mg/dL 70-[address] [facility] [address] [facility] (test hhld=2876) [facility] [address] [id number] 17:27:00 Test Item Value Reference Range Comments CORTISOL, TOTAL (BEAKER) (test tkgh=9923) 1.9 ug/dL 3.7-19.4 [id number] 17:03:00 Test Item Value Reference Range Comments SODIUM (BEAKER) (test wygg=886) 123 meq/L 136-145 POTASSIUM (BEAKER) (test jgcv=603) 4.7 meq/L 3.5-5.1 CHLORIDE (BEAKER) (test edgf=610) 95 meq/L 98-107 CO2 (BEAKER) (test awey=617) 21 meq/L 22-29 Call resultsPOCT-GLUCOSE [id number] 16:48:00 Test Item Value Reference Range Comments POC-GLUCOSE METER (BEAKER) 117 mg/dL 70-110 TESTED AT [address] (test sfbr=7079) [place] [address] SODIUM, RANDOM [id number] 15:12:00 Test Item Value Reference Range Comments SODIUM URINE (BEAKER) (test ffsa=534) < meq/L Reference Range: No NormalsCREATININE, RANDOM [id number] 15:11:00 Test Item Value Reference Range Comments CREATININE URINE (BEAKER) (test jjxf=120) 87.5 mg/dL Reference Range: No NormalsOSMOLALITY, [id number] 15:05:00 Test Item Value Reference Range Comments OSMOLALITY URINE (BEAKER) (test mchx=888) 234 mOsm/kg 40-1,400 POCT-GLUCOSE [id number] 13:14:00 Test Item Value Reference Range Comments POC-GLUCOSE METER (BEAKER) 129 mg/dL 70-110 TESTED AT [address] (test gijj=9325) [place] [address] [id number] 10:06:00 Test Item Value Reference Range Comments SODIUM (BEAKER) (test clod=827) 120 meq/L 136-145 POTASSIUM (BEAKER) (test dpip=791) 4.6 meq/L 3.5-5.1 CHLORIDE (BEAKER) (test qyzt=390) 93 meq/L 98-107 CO2 (BEAKER) (test vdbf=098) 23 meq/L 22-29 Call [id number] 09:01:00 Test Item Value Reference Range Comments POC-GLUCOSE METER (BEAKER) 97 mg/dL 70-[address] [facility] [address] (test cxmo=4630) [facility] [address] COMPREHENSIVE METABOLIC [id number] 08:40:00 Test Item Value Reference Range Comments TOTAL PROTEIN (BEAKER) 5.2 gm/dL 6.0-8.3 (test ankv=213) ALBUMIN (BEAKER) (test 3.7 g/dL 3.5-5.0 chla=0662) ALKALINE PHOSPHATASE 104 U/L 40-150 (BEAKER) (test vjes=146) BILIRUBIN TOTAL (BEAKER) 3.3 mg/dL 0.2-1.2 (test tssx=772) SODIUM (BEAKER) (test 120 meq/L 136-145 wtup=430) POTASSIUM (BEAKER) (test 4.8 meq/L 3.5-5.1 dmgh=220) CHLORIDE (BEAKER) (test 93 meq/L 98-107 xrtv=074) CO2 (BEAKER) (test 20 meq/L 22-29 zdbo=836) BLOOD UREA NITROGEN 31 mg/dL 7-21 (BEAKER) (test waje=426) CREATININE (BEAKER) (test 1.72 mg/dL 0.57-1.25 fqlk=409) GLUCOSE RANDOM (BEAKER) 99 mg/dL 70-105 (test nmvq=498) CALCIUM (BEAKER) (test 8.9 mg/dL 8.4-10.2 wjhd=957) AST (SGOT) (BEAKER) (test 16 U/L 5-34 ecol=922) ALT (SGPT) (BEAKER) (test < U/L 6-55 mvyh=630) EGFR (BEAKER) (test 42 mL/min/1.73 sq m ESTIMATED GFR IS NOT fnmf=7533) ACCURATE CREATININE CLEARANCE IN PREDICTING GLOMERULAR FILTRATION RATE. ESTIMATED GFR IS NOT APPLICABLE FOR DIALYSIS PATIENTS. Specimen slightly [id number] 08:14:00 Test Item Value Reference Range Comments PHOSPHORUS (BEAKER) (test fndy=081) 3.8 mg/dL 2.3-4.7 [id number] 08:14:00 Test Item Value Reference Range Comments MAGNESIUM (BEAKER) (test iosx=682) 2.1 mg/dL 1.6-2.6 CALCIUM, [id number] 06:56:00 Test Item Value Reference Range Comments CALCIUM IONIZED (BEAKER) (test dpdk=136) 1.12 mmol/L 1.12-1.27 PH, BLOOD (BEAKER) (test dqkx=1139) 7.36 CBC W/PLT COUNT & AUTO [id number] 06:38:00 Test Item Value Reference Range Comments WHITE BLOOD CELL COUNT (BEAKER) (test mnuq=862) 4.9 K/ L 3.5-10.5 RED BLOOD CELL COUNT (BEAKER) (test qamy=826) 2.69 M/ L 4.63-6.08 HEMOGLOBIN (BEAKER) (test snng=648) 8.3 GM/DL 13.7-17.5 HEMATOCRIT (BEAKER) (test vdku=049) 24.8 % 40.1-51.0 MEAN CORPUSCULAR VOLUME (BEAKER) (test prwi=852) 92.2 fL 79.0-92.2 MEAN CORPUSCULAR HEMOGLOBIN (BEAKER) (test 30.9 pg 25.7-32.2 vtns=070) MEAN CORPUSCULAR HEMOGLOBIN CONC (BEAKER) (test 33.5 GM/DL 32.3-36.5 bwkt=308) RED CELL DISTRIBUTION WIDTH (BEAKER) (test 14.8 % 11.6-14.4 dfav=218) PLATELET COUNT (BEAKER) (test ddwy=485) 65 K/CU MM 150-450 MEAN PLATELET VOLUME (BEAKER) (test anyp=634) 9.1 fL 9.4-12.4 NUCLEATED RED BLOOD CELLS (BEAKER) (test 0 /100 WBC 0-0 ipzl=680) NEUTROPHILS RELATIVE PERCENT (BEAKER) (test 67 % apbl=726) LYMPHOCYTES RELATIVE PERCENT (BEAKER) (test 10 % hbnm=689) MONOCYTES RELATIVE PERCENT (BEAKER) (test 17 % psxr=413) EOSINOPHILS RELATIVE PERCENT (BEAKER) (test 5 % ipdv=293) BASOPHILS RELATIVE PERCENT (BEAKER) (test 0 % seri=769) NEUTROPHILS ABSOLUTE COUNT (BEAKER) (test 3.32 K/ L 1.78-5.38 qswf=595) LYMPHOCYTES ABSOLUTE COUNT (BEAKER) (test 0.51 K/ L 1.32-3.57 gosh=237) MONOCYTES ABSOLUTE COUNT (BEAKER) (test npnj=885) 0.83 K/ L 0.30-0.82 EOSINOPHILS ABSOLUTE COUNT (BEAKER) (test 0.23 K/ L 0.04-0.54 uslh=575) BASOPHILS ABSOLUTE COUNT (BEAKER) (test skny=776) 0.02 K/ L 0.01-0.08 IMMATURE GRANULOCYTES-RELATIVE PERCENT (BEAKER) 1 % 0-1 (test xhuf=9279) [id number] 06:35:00 Test Item Value Reference Range Comments PARTIAL THROMBOPLASTIN TIME (BEAKER) (test 52.6 seconds 22.5-36.0 tbav=512) PROTHROMBIN [id number] 06:34:00 Test Item Value Reference Range Comments PROTIME (BEAKER) (test wpjq=056) 21.6 seconds 11.7-14.7 INR (BEAKER) (test wbfu=489) 1.9 <=5.9 RECOMMENDED COUMADIN/WARFARIN INR THERAPY RANGESSTANDARD DOSE: 2.0 - 3.0 Includes: PROPHYLAXIS forvenous thrombosis, systemic embolization; TREATMENT for venous thrombosis and/or pulmonary embolus.HIGH RISK: Target INR is 2.5-3.5 for patients with mechanical heart valves.POCT-GLUCOSE [id number] 22:00:00 Test Item Value Reference Range Comments POC-GLUCOSE METER (BEAKER) 114 mg/dL 70-110 TESTED AT [address] (test ikse=5962) [place] [address] POCT-GLUCOSE [id number] 17:57:00 Test Item Value Reference Range Comments POC-GLUCOSE METER (BEAKER) 139 mg/dL 70-110 TESTED AT [address] (test evra=3490) [place] [address] POCT-GLUCOSE [id number] 11:57:00 Test Item Value Reference Range Comments POC-GLUCOSE METER (BEAKER) 146 mg/dL 70-110 TESTED AT [address] (test xbcx=1929) [place] [address] POCT-GLUCOSE [id number] 09:16:00 Test Item Value Reference Range Comments POC-GLUCOSE METER (BEAKER) 109 mg/dL 70-110 TESTED AT [address] (test pqta=6324) [place] [address] COMPREHENSIVE METABOLIC [id number] 05:53:00 Test Item Value Reference Range Comments TOTAL PROTEIN (BEAKER) 5.2 gm/dL 6.0-8.3 (test wmoe=648) ALBUMIN (BEAKER) (test 3.8 g/dL 3.5-5.0 jcte=7172) ALKALINE PHOSPHATASE 110 U/L 40-150 (BEAKER) (test gvcz=923) BILIRUBIN TOTAL (BEAKER) 4.5 mg/dL 0.2-1.2 (test yilk=852) SODIUM (BEAKER) (test 124 meq/L 136-145 txcl=741) POTASSIUM (BEAKER) (test 4.5 meq/L 3.5-5.1 uyar=792) CHLORIDE (BEAKER) (test 95 meq/L 98-107 tlzk=903) CO2 (BEAKER) (test 22 meq/L 22-29 wpgx=979) BLOOD UREA NITROGEN 30 mg/dL 7-21 (BEAKER) (test texr=280) CREATININE (BEAKER) (test 1.67 mg/dL 0.57-1.25 taqg=797) GLUCOSE RANDOM (BEAKER) 99 mg/dL 70-105 (test olnc=464) CALCIUM (BEAKER) (test 9.0 mg/dL 8.4-10.2 ktym=895) AST (SGOT) (BEAKER) (test 16 U/L 5-34 pxml=926) ALT (SGPT) (BEAKER) (test < U/L 6-55 sosi=295) EGFR (BEAKER) (test 43 mL/min/1.73 sq m ESTIMATED GFR IS NOT mkss=0858) ACCURATE CREATININE CLEARANCE IN PREDICTING GLOMERULAR FILTRATION RATE. ESTIMATED GFR IS NOT APPLICABLE FOR DIALYSIS PATIENTS. Specimen slightly [id number] 05:50:00 Test Item Value Reference Range Comments PHOSPHORUS (BEAKER) (test egii=397) 3.7 mg/dL 2.3-4.7 [id number] 05:50:00 Test Item Value Reference Range Comments MAGNESIUM (BEAKER) (test ijeg=835) 2.1 mg/dL 1.6-2.6 CBC W/PLT COUNT & AUTO [id number] 05:28:00 Test Item Value Reference Range Comments WHITE BLOOD CELL COUNT (BEAKER) (test aqrb=540) 4.0 K/ L 3.5-10.5 RED BLOOD CELL COUNT (BEAKER) (test pkpl=775) 2.80 M/ L 4.63-6.08 HEMOGLOBIN (BEAKER) (test zofw=062) 8.7 GM/DL 13.7-17.5 HEMATOCRIT (BEAKER) (test bgub=691) 25.8 % 40.1-51.0 MEAN CORPUSCULAR VOLUME (BEAKER) (test nshz=474) 92.1 fL 79.0-92.2 MEAN CORPUSCULAR HEMOGLOBIN (BEAKER) (test 31.1 pg 25.7-32.2 qfme=728) MEAN CORPUSCULAR HEMOGLOBIN CONC (BEAKER) (test 33.7 GM/DL 32.3-36.5 snot=119) RED CELL DISTRIBUTION WIDTH (BEAKER) (test 14.7 % 11.6-14.4 xzeb=827) PLATELET COUNT (BEAKER) (test vdjm=069) 42 K/CU MM 150-450 MEAN PLATELET VOLUME (BEAKER) (test wsrd=086) 9.8 fL 9.4-12.4 NUCLEATED RED BLOOD CELLS (BEAKER) (test 0 /100 WBC 0-0 xkse=526) NEUTROPHILS RELATIVE PERCENT (BEAKER) (test 59 % toht=380) LYMPHOCYTES RELATIVE PERCENT (BEAKER) (test 15 % sueu=199) MONOCYTES RELATIVE PERCENT (BEAKER) (test 20 % nglf=264) EOSINOPHILS RELATIVE PERCENT (BEAKER) (test 5 % epye=050) BASOPHILS RELATIVE PERCENT (BEAKER) (test 1 % zept=791) NEUTROPHILS ABSOLUTE COUNT (BEAKER) (test 2.37 K/ L 1.78-5.38 wdyi=388) LYMPHOCYTES ABSOLUTE COUNT (BEAKER) (test 0.58 K/ L 1.32-3.57 eqal=096) MONOCYTES ABSOLUTE COUNT (BEAKER) (test alhw=941) 0.78 K/ L 0.30-0.82 EOSINOPHILS ABSOLUTE COUNT (BEAKER) (test 0.21 K/ L 0.04-0.54 vhml=927) BASOPHILS ABSOLUTE COUNT (BEAKER) (test hmbf=829) 0.02 K/ L 0.01-0.08 IMMATURE GRANULOCYTES-RELATIVE PERCENT (BEAKER) 1 % 0-1 (test kgwq=4656) PROTHROMBIN [id number] 05:26:00 Test Item Value Reference Range Comments PROTIME (BEAKER) (test xirk=485) 23.3 seconds 11.7-14.7 INR (BEAKER) (test gnkn=238) 2.1 <=5.9 RECOMMENDED COUMADIN/WARFARIN INR THERAPY RANGESSTANDARD DOSE: 2.0 - 3.0 Includes: PROPHYLAXIS forvenous thrombosis, systemic embolization; TREATMENT for venous thrombosis and/or pulmonary embolus.HIGH RISK: Target INR is 2.5-3.5 for patients with mechanical heart valves.CALCIUM, [id number] 05:21:00 Test Item Value Reference Range Comments CALCIUM IONIZED (BEAKER) (test owam=094) 1.11 mmol/L 1.12-1.27 PH, BLOOD (BEAKER) (test fiid=7244) 7.40 POCT-GLUCOSE [id number] 21:47:00 Test Item Value Reference Range Comments POC-GLUCOSE METER (BEAKER) 129 mg/dL 70-110 TESTED AT [address] (test qbkn=8244) [facility] [address] RAD, CHEST, 1 VIEW, NON [id number] 17:18:00Reason for exam:->sobFINAL REPORT Comparison: 08/26/2018 TECHNIQUE: Single view of the chest FINDINGS: Lung volumes are low. Bibasilar densities may represent atelectasis. Otherwise lungs are clear. Cardiac silhouette is within normal limits. Soft tissues and bones are unremarkable. Signed: Rick Guerra MDReport Verified Date/Time: 09/02/2018 17:18:49 Reading Location: [facility] Mammo Reading Room CBC W/ PLT COUNT & AUTO [id number] 17:16:00 Test Item Value Reference Range Comments WHITE BLOOD CELL COUNT (BEAKER) (test qxyp=889) 3.8 K/ L 3.5-10.5 RED BLOOD CELL COUNT (BEAKER) (test yixa=973) 2.37 M/ L 4.63-6.08 HEMOGLOBIN (BEAKER) (test sauk=457) 7.4 GM/DL 13.7-17.5 HEMATOCRIT (BEAKER) (test fvre=715) 21.8 % 40.1-51.0 MEAN CORPUSCULAR VOLUME (BEAKER) (test qxla=145) 92.0 fL 79.0-92.2 MEAN CORPUSCULAR HEMOGLOBIN (BEAKER) (test 31.2 pg 25.7-32.2 jcbs=257) MEAN CORPUSCULAR HEMOGLOBIN CONC (BEAKER) (test 33.9 GM/DL 32.3-36.5 twfu=478) RED CELL DISTRIBUTION WIDTH (BEAKER) (test 14.9 % 11.6-14.4 ygbz=681) PLATELET COUNT (BEAKER) (test fnnk=849) 41 K/CU MM 150-450 MEAN PLATELET VOLUME (BEAKER) (test urns=438) 8.8 fL 9.4-12.4 NUCLEATED RED BLOOD CELLS (BEAKER) (test 0 /100 WBC 0-0 tyqp=799) NEUTROPHILS RELATIVE PERCENT (BEAKER) (test 62 % gwtk=486) LYMPHOCYTES RELATIVE PERCENT (BEAKER) (test 14 % zaza=186) MONOCYTES RELATIVE PERCENT (BEAKER) (test 18 % zbyd=547) EOSINOPHILS RELATIVE PERCENT (BEAKER) (test 4 % dckm=371) BASOPHILS RELATIVE PERCENT (BEAKER) (test 0 % tkbv=479) NEUTROPHILS ABSOLUTE COUNT (BEAKER) (test 2.39 K/ L 1.78-5.38 qgkh=074) LYMPHOCYTES ABSOLUTE COUNT (BEAKER) (test 0.55 K/ L 1.32-3.57 kmjc=742) MONOCYTES ABSOLUTE COUNT (BEAKER) (test pfoy=892) 0.69 K/ L 0.30-0.82 EOSINOPHILS ABSOLUTE COUNT (BEAKER) (test 0.17 K/ L 0.04-0.54 eyki=840) BASOPHILS ABSOLUTE COUNT (BEAKER) (test avje=673) 0.01 K/ L 0.01-0.08 IMMATURE GRANULOCYTES-RELATIVE PERCENT (BEAKER) 1 % 0-1 (test fryr=9897) POCT-BLOOD GASES, [id number] 16:58:00 Test Item Value Reference Range Comments TEMP, CELSIUS-POC (BEAKER) 37.0 (test cwkp=4869) FIO2-POC (BEAKER) (test TESTED AT [facility] [address] kxxf=0135) [place] [address] PH, ARTERIAL-POC (BEAKER) 7.412 7.350-7.450 (test brbj=7854) PCO2, ARTERIAL-POC (BEAKER) 35.5 mm Hg 35.0-45.0 (test oucu=9320) PO2, ARTERIAL-POC (BEAKER) 69.0 mm Hg 80.0-90.0 (test hdky=9791) SO2, ARTERIAL-POC (BEAKER) 94.0 % 96.0-97.0 (test tdbh=9552) HCO3, ARTERIAL-POC (BEAKER) 22.6 meq/L 21.0-29.0 (test cznj=4914) BASE EXCESS, ARTERIAL-POC -2.0 meq/L -2.0-3.0 (BEAKER) (test pkwj=0599) [id number] 16:58:00 Test Item Value Reference Range Comments POC-SODIUM (BEAKER) (test 125 meq/L 135-148 TESTED AT [address] asru=4619) [place] [address] [id number] 16:58:00 Test Item Value Reference Range Comments POC-POTASSIUM (BEAKER) (test 4.2 meq/L 3.6-5.5 TESTED AT [address] jgei=6171) [place] [address] [id number] 16:58:00 Test Item Value Reference Range Comments POC-GLUCOSE (BEAKER) (test 128 mg/dL 70-110 TESTED AT [address] zkwd=8283) [place] [address] POCT-CALCIUM [id number] 16:58:00 Test Item Value Reference Range Comments POC-CALCIUM IONIZED (BEAKER) 1.24 mmol/L 1.12-1.27 TESTED AT [address] (test blup=9940) [place] [address] [id number] 16:58:00 Test Item Value Reference Range Comments POC-HEMATOCRIT (BEAKER) (test 21 % 40-50 TESTED AT [address] jorr=6673) [place] [address] [id number] 16:58:00 Test Item Value Reference Range Comments POC-HEMOGLOBIN (BEAKER) 7.1 g/dL 13.0-16.8 TESTED AT [address] (test qrjm=3358) [facility] [address] AT [address] [address] POCT-LACTIC ACID, [id number] 16:58:00 Test Item Value Reference Range Comments POC-LACTIC ACID, ARTERIAL 1.0 mmol/L 0.4-1.3 TESTED AT [address] (BEAKER) (test tays=8734) [facility] [address] POCT-GLUCOSE [id number] 11:43:00 Test Item Value Reference Range Comments POC-GLUCOSE METER (BEAKER) 169 mg/dL 70-110 TESTED AT [address] (test kanm=6521) [facility] [address] POCT-GLUCOSE [id number] 08:23:00 Test Item Value Reference Range Comments POC-GLUCOSE METER (BEAKER) 128 mg/dL 70-110 TESTED AT [address] (test dtiu=8516) [facility] [address] [id number] 05:16:00 Test Item Value Reference Range Comments PHOSPHORUS (BEAKER) (test ofvh=432) 3.8 mg/dL 2.3-4.7 [id number] 05:16:00 Test Item Value Reference Range Comments MAGNESIUM (BEAKER) (test dftv=041) 2.0 mg/dL 1.6-2.6 COMPREHENSIVE METABOLIC [id number] 05:16:00 Test Item Value Reference Range Comments TOTAL PROTEIN (BEAKER) 5.0 gm/dL 6.0-8.3 (test vgxy=705) ALBUMIN (BEAKER) (test 3.5 g/dL 3.5-5.0 rygq=9535) ALKALINE PHOSPHATASE 124 U/L 40-150 (BEAKER) (test sijy=479) BILIRUBIN TOTAL (BEAKER) 2.2 mg/dL 0.2-1.2 (test grcl=478) SODIUM (BEAKER) (test 125 meq/L 136-145 kmvk=926) POTASSIUM (BEAKER) (test 4.4 meq/L 3.5-5.1 ylqk=750) CHLORIDE (BEAKER) (test 96 meq/L 98-107 onek=065) CO2 (BEAKER) (test 23 meq/L 22-29 vona=960) BLOOD UREA NITROGEN 27 mg/dL 7-21 (BEAKER) (test nnio=514) CREATININE (BEAKER) (test 1.74 mg/dL 0.57-1.25 sosj=314) GLUCOSE RANDOM (BEAKER) 112 mg/dL 70-105 (test prbx=397) CALCIUM (BEAKER) (test 8.8 mg/dL 8.4-10.2 crmd=606) AST (SGOT) (BEAKER) (test 17 U/L 5-34 glxy=466) ALT (SGPT) (BEAKER) (test 7 U/L 6-55 smlw=376) EGFR (BEAKER) (test 41 mL/min/1.73 sq m ESTIMATED GFR IS NOT kmnr=5577) ACCURATE CREATININE CLEARANCE IN PREDICTING GLOMERULAR FILTRATION RATE. ESTIMATED GFR IS NOT APPLICABLE FOR DIALYSIS PATIENTS. CALCIUM, [id number] 05:13:00 Test Item Value Reference Range Comments CALCIUM IONIZED (BEAKER) (test plke=316) 1.10 mmol/L 1.12-1.27 PH, BLOOD (BEAKER) (test cspt=2764) 7.44 CBC W/PLT COUNT & AUTO [id number] 05:02:00 Test Item Value Reference Range Comments WHITE BLOOD CELL COUNT (BEAKER) (test yhtz=888) 3.2 K/ L 3.5-10.5 RED BLOOD CELL COUNT (BEAKER) (test xhku=107) 2.23 M/ L 4.63-6.08 HEMOGLOBIN (BEAKER) (test oxwi=404) 6.9 GM/DL 13.7-17.5 HEMATOCRIT (BEAKER) (test pypi=650) 20.8 % 40.1-51.0 MEAN CORPUSCULAR VOLUME (BEAKER) (test koom=516) 93.3 fL 79.0-92.2 MEAN CORPUSCULAR HEMOGLOBIN (BEAKER) (test 30.9 pg 25.7-32.2 yfcj=513) MEAN CORPUSCULAR HEMOGLOBIN CONC (BEAKER) (test 33.2 GM/DL 32.3-36.5 keak=543) RED CELL DISTRIBUTION WIDTH (BEAKER) (test 14.6 % 11.6-14.4 bnaj=437) PLATELET COUNT (BEAKER) (test gefi=691) 43 K/CU MM 150-450 MEAN PLATELET VOLUME (BEAKER) (test wwyi=816) 9.3 fL 9.4-12.4 NUCLEATED RED BLOOD CELLS (BEAKER) (test 0 /100 WBC 0-0 erhi=404) NEUTROPHILS RELATIVE PERCENT (BEAKER) (test 58 % vcee=189) LYMPHOCYTES RELATIVE PERCENT (BEAKER) (test 17 % nraq=427) MONOCYTES RELATIVE PERCENT (BEAKER) (test 18 % hsys=083) EOSINOPHILS RELATIVE PERCENT (BEAKER) (test 5 % osql=651) BASOPHILS RELATIVE PERCENT (BEAKER) (test 1 % rula=405) NEUTROPHILS ABSOLUTE COUNT (BEAKER) (test 1.84 K/ L 1.78-5.38 yfjh=098) LYMPHOCYTES ABSOLUTE COUNT (BEAKER) (test 0.54 K/ L 1.32-3.57 oyrj=659) MONOCYTES ABSOLUTE COUNT (BEAKER) (test tibw=784) 0.56 K/ L 0.30-0.82 EOSINOPHILS ABSOLUTE COUNT (BEAKER) (test 0.15 K/ L 0.04-0.54 prtg=997) BASOPHILS ABSOLUTE COUNT (BEAKER) (test varw=800) 0.02 K/ L 0.01-0.08 IMMATURE GRANULOCYTES-RELATIVE PERCENT (BEAKER) 1 % 0-1 (test cvwj=2013) PROTHROMBIN [id number] 05:00:00 Test Item Value Reference Range Comments PROTIME (BEAKER) (test lsft=403) 22.7 seconds 11.7-14.7 INR (BEAKER) (test cgch=812) 2.0 <=5.9 RECOMMENDED COUMADIN/WARFARIN INR THERAPY RANGESSTANDARD DOSE: 2.0 - 3.0 Includes: PROPHYLAXIS forvenous thrombosis, systemic embolization; TREATMENT for venous thrombosis and/or pulmonary embolus.HIGH RISK: Target INR is 2.5-3.5 for patients with mechanical heart valves.POCT-GLUCOSE [id number] 22:18:00 Test Item Value Reference Range Comments POC-GLUCOSE METER (BEAKER) 194 mg/dL 70-110 TESTED AT [address] (test yphx=7690) [place] [address] POCT-GLUCOSE [id number] 17:33:00 Test Item Value Reference Range Comments POC-GLUCOSE METER (BEAKER) 160 mg/dL 70-110 TESTED AT [address] (test abty=8753) [place] [id number] POCT-GLUCOSE [id number] 11:56:00 Test Item Value Reference Range Comments POC-GLUCOSE METER (BEAKER) 151 mg/dL 70-[address] [facility] [address] [facility] (test wskr=9905) [facility] [address] URINALYSIS W/ [id number] 09:52:00 Test Item Value Reference Range Comments COLOR (BEAKER) (test pnhe=988) Yellow CLARITY (BEAKER) (test fksr=696) Clear SPECIFIC GRAVITY UA (BEAKER) (test 1.014 1.001-1.035 jijb=111) PH UA (BEAKER) (test zsfx=622) 5.5 5.0-8.0 PROTEIN UA (BEAKER) (test gpkb=696) Negative Negative GLUCOSE UA (BEAKER) (test fbkx=003) Negative Negative KETONES UA (BEAKER) (test zgbe=194) Negative Negative BILIRUBIN UA (BEAKER) (test zkmm=832) Negative Negative BLOOD UA (BEAKER) (test qtvd=287) Negative Negative NITRITE UA (BEAKER) (test vufv=743) Negative Negative LEUKOCYTE ESTERASE UA (BEAKER) (test Negative Negative ylmq=522) UROBILINOGEN UA (BEAKER) (test qnji=810) 0.2 mg/dL 0.2-1.0 RBC UA (BEAKER) (test fznf=447) 1 /HPF WBC UA (BEAKER) (test briw=930) 4 /HPF BACTERIA (BEAKER) (test kxpu=575) Rare MUCUS (BEAKER) (test svbh=2993) Rare HYALINE CASTS (BEAKER) (test unob=738) 19 /LPF YEAST (BEAKER) (test nvnk=9943) Rare SOURCE(BEAKER) (test fwzg=1129) Urine, Clean Catch SODIUM, RANDOM [id number] 09:09:00 Test Item Value Reference Range Comments SODIUM URINE (BEAKER) (test jmcm=611) < meq/L Reference Range: No NormalsCREATININE, RANDOM [id number] 09:04:00 Test Item Value Reference Range Comments CREATININE URINE (BEAKER) (test znjj=385) 149.6 mg/dL Reference Range: No NormalsPOCT-GLUCOSE [id number] 08:12:00 Test Item Value Reference Range Comments POC-GLUCOSE METER (BEAKER) 106 mg/dL 70-[address] [facility] [address] (test ckwt=8684) [place] [address] CBC W/PLT COUNT & AUTO [id number] 06:56:00 Test Item Value Reference Range Comments WHITE BLOOD CELL COUNT (BEAKER) (test dvws=926) 4.5 K/ L 3.5-10.5 RED BLOOD CELL COUNT (BEAKER) (test nhdb=602) 2.22 M/ L 4.63-6.08 HEMOGLOBIN (BEAKER) (test zxqa=799) 7.0 GM/DL 13.7-17.5 HEMATOCRIT (BEAKER) (test egyz=761) 20.6 % 40.1-51.0 MEAN CORPUSCULAR VOLUME (BEAKER) (test rgzo=182) 92.8 fL 79.0-92.2 MEAN CORPUSCULAR HEMOGLOBIN (BEAKER) (test 31.5 pg 25.7-32.2 mqzl=687) MEAN CORPUSCULAR HEMOGLOBIN CONC (BEAKER) (test 34.0 GM/DL 32.3-36.5 fxcq=837) RED CELL DISTRIBUTION WIDTH (BEAKER) (test 14.7 % 11.6-14.4 mvao=210) PLATELET COUNT (BEAKER) (test ecdv=498) 44 K/CU MM 150-450 MEAN PLATELET VOLUME (BEAKER) (test rocg=107) 9.0 fL 9.4-12.4 NUCLEATED RED BLOOD CELLS (BEAKER) (test 0 /100 WBC 0-0 acmx=685) NEUTROPHILS RELATIVE PERCENT (BEAKER) (test 69 % moga=018) LYMPHOCYTES RELATIVE PERCENT (BEAKER) (test 12 % yhrc=810) MONOCYTES RELATIVE PERCENT (BEAKER) (test 14 % ibpb=943) EOSINOPHILS RELATIVE PERCENT (BEAKER) (test 4 % ddpf=650) BASOPHILS RELATIVE PERCENT (BEAKER) (test 0 % lprj=463) NEUTROPHILS ABSOLUTE COUNT (BEAKER) (test 3.12 K/ L 1.78-5.38 gewp=189) LYMPHOCYTES ABSOLUTE COUNT (BEAKER) (test 0.55 K/ L 1.32-3.57 avyp=542) MONOCYTES ABSOLUTE COUNT (BEAKER) (test uqoq=296) 0.62 K/ L 0.30-0.82 EOSINOPHILS ABSOLUTE COUNT (BEAKER) (test 0.18 K/ L 0.04-0.54 hsbk=214) BASOPHILS ABSOLUTE COUNT (BEAKER) (test cyil=645) 0.00 K/ L 0.01-0.08 IMMATURE GRANULOCYTES-RELATIVE PERCENT (BEAKER) 1 % 0-1 (test jltp=8460) [id number] 06:41:00 Test Item Value Reference Range Comments PHOSPHORUS (BEAKER) (test zzde=152) 2.7 mg/dL 2.3-4.7 [id number] 06:41:00 Test Item Value Reference Range Comments MAGNESIUM (BEAKER) (test mbsl=388) 2.0 mg/dL 1.6-2.6 COMPREHENSIVE METABOLIC [id number] 06:41:00 Test Item Value Reference Range Comments TOTAL PROTEIN (BEAKER) 4.9 gm/dL 6.0-8.3 (test newf=154) ALBUMIN (BEAKER) (test 3.1 g/dL 3.5-5.0 pmbw=1300) ALKALINE PHOSPHATASE 148 U/L 40-150 (BEAKER) (test wwtw=120) BILIRUBIN TOTAL (BEAKER) 1.9 mg/dL 0.2-1.2 (test mxgs=430) SODIUM (BEAKER) (test 123 meq/L 136-145 qsvg=159) POTASSIUM (BEAKER) (test 3.9 meq/L 3.5-5.1 fbto=758) CHLORIDE (BEAKER) (test 94 meq/L 98-107 cfpk=025) CO2 (BEAKER) (test 22 meq/L 22-29 yryp=482) BLOOD UREA NITROGEN 24 mg/dL 7-21 (BEAKER) (test ijiy=104) CREATININE (BEAKER) (test 1.55 mg/dL 0.57-1.25 brhy=882) GLUCOSE RANDOM (BEAKER) 95 mg/dL 70-105 (test cxri=166) CALCIUM (BEAKER) (test 8.5 mg/dL 8.4-10.2 khly=138) AST (SGOT) (BEAKER) (test 18 U/L 5-34 ikcj=086) ALT (SGPT) (BEAKER) (test 10 U/L 6-55 jguf=584) EGFR (BEAKER) (test 47 mL/min/1.73 sq m ESTIMATED GFR IS NOT fsvn=6087) ACCURATE CREATININE CLEARANCE IN PREDICTING GLOMERULAR FILTRATION RATE. ESTIMATED GFR IS NOT APPLICABLE FOR DIALYSIS PATIENTS. BILIRUBIN, [id number] 06:41:00 Test Item Value Reference Range Comments BILIRUBIN DIRECT (BEAKER) (test xgpv=137) 1.3 mg/dL 0.1-0.5 PROTHROMBIN [id number] 06:26:00 Test Item Value Reference Range Comments PROTIME (BEAKER) (test aruc=518) 23.3 seconds 11.7-14.7 INR (BEAKER) (test etxw=109) 2.1 <=5.9 RECOMMENDED COUMADIN/WARFARIN INR THERAPY RANGESSTANDARD DOSE: 2.0 - 3.0 Includes: PROPHYLAXIS forvenous thrombosis, systemic embolization; TREATMENT for venous thrombosis and/or pulmonary embolus.HIGH RISK: Target INR is 2.5-3.5 for patients with mechanical heart valves.POCT-GLUCOSE [id number] 22:17:00 Test Item Value Reference Range Comments POC-GLUCOSE METER (BEAKER) 136 mg/dL 70-[address] [facility] [address] [facility] (test yphe=1246) [place] [address] POCT-GLUCOSE [id number] 18:08:00 Test Item Value Reference Range Comments POC-GLUCOSE METER (BEAKER) 126 mg/dL 70-110 TESTED AT [address] (test yjcb=4700) [place] [address] U/S, [id number] 17:47:00Reason for exam:->ascitesFINAL REPORT Indication: Ascites. Technique: Ultrasound guided paracentesis. Findings:Preliminary ultrasound confirms ascites. A safe window was identified in the left lower quadrant. The procedure was explained to the patient and informed consent was signed. The skin was markedand prepped in standard sterile fashion. Lidocaine was used for local anesthesia. A 5 Mal[place]ian needle catheter system was advanced into the peritoneal space. 5500 cc slightly cloudy yellow fluid was taken off. Patient tolerated the procedure well. Impression: Ultrasound guided paracentesis. Signed: Aristeo Xiongeport Verified Date/Time: 08/31/2018 17:47:54 Reading Location: [address] Ultrasound Reading Room POCT-GLUCOSE [id number] 11:52:00 Test Item Value Reference Range Comments POC-GLUCOSE METER (BEAKER) 151 mg/dL 70-[address] [facility] [address] [facility] (test icos=3126) [facility] [address] POCT-GLUCOSE [id number] 08:19:00 Test Item Value Reference Range Comments POC-GLUCOSE METER (BEAKER) 129 mg/dL 70-110 TESTED AT [address] (test yneb=2168) [facility] [address] [id number] 05:12:00 Test Item Value Reference Range Comments PHOSPHORUS (BEAKER) (test mbng=760) 2.9 mg/dL 2.3-4.7 [id number] 05:12:00 Test Item Value Reference Range Comments MAGNESIUM (BEAKER) (test xipf=432) 2.0 mg/dL 1.6-2.6 COMPREHENSIVE METABOLIC [id number] 05:12:00 Test Item Value Reference Range Comments TOTAL PROTEIN (BEAKER) 5.4 gm/dL 6.0-8.3 (test aprs=164) ALBUMIN (BEAKER) (test 3.2 g/dL 3.5-5.0 dhkl=4840) ALKALINE PHOSPHATASE 159 U/L 40-150 (BEAKER) (test ajlx=497) BILIRUBIN TOTAL (BEAKER) 1.8 mg/dL 0.2-1.2 (test jtee=177) SODIUM (BEAKER) (test 125 meq/L 136-145 owrn=535) POTASSIUM (BEAKER) (test 4.3 meq/L 3.5-5.1 hbrl=246) CHLORIDE (BEAKER) (test 97 meq/L 98-107 rldv=299) CO2 (BEAKER) (test 22 meq/L 22-29 xvrf=836) BLOOD UREA NITROGEN 21 mg/dL 7-21 (BEAKER) (test ugne=933) CREATININE (BEAKER) (test 1.34 mg/dL 0.57-1.25 fsxv=576) GLUCOSE RANDOM (BEAKER) 113 mg/dL 70-105 (test masb=067) CALCIUM (BEAKER) (test 8.8 mg/dL 8.4-10.2 cekx=924) AST (SGOT) (BEAKER) (test 22 U/L 5-34 qurb=290) ALT (SGPT) (BEAKER) (test 11 U/L 6-55 usld=675) EGFR (BEAKER) (test 56 mL/min/1.73 sq m ESTIMATED GFR IS NOT ayhi=9469) ACCURATE CREATININE CLEARANCE IN PREDICTING GLOMERULAR FILTRATION RATE. ESTIMATED GFR IS NOT APPLICABLE FOR DIALYSIS PATIENTS. BILIRUBIN, [id number] 05:12:00 Test Item Value Reference Range Comments BILIRUBIN DIRECT (BEAKER) (test gmsu=815) 1.2 mg/dL 0.1-0.5 PROTHROMBIN [id number] 04:48:00 Test Item Value Reference Range Comments PROTIME (BEAKER) (test cwen=973) 22.3 seconds 11.7-14.7 INR (BEAKER) (test ycyp=835) 2.0 <=5.9 RECOMMENDED COUMADIN/WARFARIN INR THERAPY RANGESSTANDARD DOSE: 2.0 - 3.0 Includes: PROPHYLAXIS forvenous thrombosis, systemic embolization; TREATMENT for venous thrombosis and/or pulmonary embolus.HIGH RISK: Target INR is 2.5-3.5 for patients with mechanical heart valves.CBC W/PLT COUNT & AUTO [id number] 04:33:00 Test Item Value Reference Range Comments WHITE BLOOD CELL COUNT (BEAKER) (test xich=270) 5.5 K/ L 3.5-10.5 RED BLOOD CELL COUNT (BEAKER) (test ptou=143) 2.58 M/ L 4.63-6.08 HEMOGLOBIN (BEAKER) (test tfao=430) 7.9 GM/DL 13.7-17.5 HEMATOCRIT (BEAKER) (test ekjv=385) 24.3 % 40.1-51.0 MEAN CORPUSCULAR VOLUME (BEAKER) (test sxvy=266) 94.2 fL 79.0-92.2 MEAN CORPUSCULAR HEMOGLOBIN (BEAKER) (test 30.6 pg 25.7-32.2 gsjc=587) MEAN CORPUSCULAR HEMOGLOBIN CONC (BEAKER) (test 32.5 GM/DL 32.3-36.5 tfbe=100) RED CELL DISTRIBUTION WIDTH (BEAKER) (test 15.0 % 11.6-14.4 xmfc=534) PLATELET COUNT (BEAKER) (test ejme=330) 57 K/CU MM 150-450 MEAN PLATELET VOLUME (BEAKER) (test adbu=914) 9.2 fL 9.4-12.4 NUCLEATED RED BLOOD CELLS (BEAKER) (test 0 /100 WBC 0-0 tlqu=475) NEUTROPHILS RELATIVE PERCENT (BEAKER) (test 70 % kuht=065) LYMPHOCYTES RELATIVE PERCENT (BEAKER) (test 12 % gjjo=273) MONOCYTES RELATIVE PERCENT (BEAKER) (test 14 % zsrg=995) EOSINOPHILS RELATIVE PERCENT (BEAKER) (test 4 % oqqr=902) BASOPHILS RELATIVE PERCENT (BEAKER) (test 0 % xeoz=240) NEUTROPHILS ABSOLUTE COUNT (BEAKER) (test 3.85 K/ L 1.78-5.38 ljac=380) LYMPHOCYTES ABSOLUTE COUNT (BEAKER) (test 0.67 K/ L 1.32-3.57 httz=950) MONOCYTES ABSOLUTE COUNT (BEAKER) (test uamx=764) 0.75 K/ L 0.30-0.82 EOSINOPHILS ABSOLUTE COUNT (BEAKER) (test 0.22 K/ L 0.04-0.54 iocw=891) BASOPHILS ABSOLUTE COUNT (BEAKER) (test zcyr=535) 0.01 K/ L 0.01-0.08 IMMATURE GRANULOCYTES-RELATIVE PERCENT (BEAKER) 1 % 0-1 (test cfsx=6034) BLOOD [id number] 23:01:00 Test Item Value Reference Range Comments CULTURE (BEAKER) (test umjx=5000) No growth in 5 days POCT-GLUCOSE [id number] 22:15:00 Test Item Value Reference Range Comments POC-GLUCOSE METER (BEAKER) 133 mg/dL 70-110 TESTED AT [address] (test pbib=8248) [facility] [address] POCT-GLUCOSE [id number] 17:42:00 Test Item Value Reference Range Comments POC-GLUCOSE METER (BEAKER) 139 mg/dL 70-110 TESTED AT [address] (test qgiw=7884) [facility] [address] POCT-GLUCOSE [id number] 12:02:00 Test Item Value Reference Range Comments POC-GLUCOSE METER (BEAKER) 152 mg/dL 70-110 TESTED AT [address] (test cmlu=7492) [place] [id number] POCT-GLUCOSE [id number] 09:04:00 Test Item Value Reference Range Comments POC-GLUCOSE METER (BEAKER) 130 mg/dL 70-[address] [facility] [address] (test qhif=4298) [facility] [address] CALCIUM, [id number] 07:27:00 Test Item Value Reference Range Comments CALCIUM IONIZED (BEAKER) (test cmzi=666) 1.10 mmol/L 1.12-1.27 PH, BLOOD (BEAKER) (test ruiv=8925) 7.42 [id number] 06:46:00 Test Item Value Reference Range Comments PHOSPHORUS (BEAKER) (test owxk=821) 3.0 mg/dL 2.3-4.7 [id number] 06:46:00 Test Item Value Reference Range Comments MAGNESIUM (BEAKER) (test tldg=793) 2.0 mg/dL 1.6-2.6 COMPREHENSIVE METABOLIC [id number] 06:46:00 Test Item Value Reference Range Comments TOTAL PROTEIN (BEAKER) 4.9 gm/dL 6.0-8.3 (test cjnc=154) ALBUMIN (BEAKER) (test 3.0 g/dL 3.5-5.0 mmvk=3359) ALKALINE PHOSPHATASE 145 U/L 40-150 (BEAKER) (test ajpt=806) BILIRUBIN TOTAL (BEAKER) 1.9 mg/dL 0.2-1.2 (test nhme=609) SODIUM (BEAKER) (test 127 meq/L 136-145 xglp=627) POTASSIUM (BEAKER) (test 3.7 meq/L 3.5-5.1 dnne=597) CHLORIDE (BEAKER) (test 99 meq/L 98-107 phkt=829) CO2 (BEAKER) (test 21 meq/L 22-29 jicu=244) BLOOD UREA NITROGEN 20 mg/dL 7-21 (BEAKER) (test lmis=787) CREATININE (BEAKER) (test 1.21 mg/dL 0.57-1.25 mtui=284) GLUCOSE RANDOM (BEAKER) 108 mg/dL 70-105 (test itpi=577) CALCIUM (BEAKER) (test 8.9 mg/dL 8.4-10.2 edht=624) AST (SGOT) (BEAKER) (test 22 U/L 5-34 zqdw=141) ALT (SGPT) (BEAKER) (test 9 U/L 6-55 rkfv=233) EGFR (BEAKER) (test 63 mL/min/1.73 sq m ESTIMATED GFR IS NOT ukcl=9883) ACCURATE CREATININE CLEARANCE IN PREDICTING GLOMERULAR FILTRATION RATE. ESTIMATED GFR IS NOT APPLICABLE FOR DIALYSIS PATIENTS. BASIC METABOLIC [id number] 06:46:00 Test Item Value Reference Range Comments SODIUM (BEAKER) (test 127 meq/L 136-145 nadq=741) POTASSIUM (BEAKER) (test 3.7 meq/L 3.5-5.1 nuhx=143) CHLORIDE (BEAKER) (test 99 meq/L 98-107 vnwr=104) CO2 (BEAKER) (test 21 meq/L 22-29 yddv=773) BLOOD UREA NITROGEN 20 mg/dL 7-21 (BEAKER) (test pcnh=044) CREATININE (BEAKER) (test 1.21 mg/dL 0.57-1.25 vgqx=636) GLUCOSE RANDOM (BEAKER) 108 mg/dL 70-105 (test zpbn=734) CALCIUM (BEAKER) (test 8.9 mg/dL 8.4-10.2 sxyn=788) EGFR (BEAKER) (test 63 mL/min/1.73 sq m ESTIMATED GFR IS NOT lisv=0526) ACCURATE CREATININE CLEARANCE IN PREDICTING GLOMERULAR FILTRATION RATE. ESTIMATED GFR IS NOT APPLICABLE FOR DIALYSIS PATIENTS. BILIRUBIN, [id number] 06:46:00 Test Item Value Reference Range Comments BILIRUBIN DIRECT (BEAKER) (test hflf=339) 1.2 mg/dL 0.1-0.5 CBC W/PLT COUNT & AUTO [id number] 06:30:00 Test Item Value Reference Range Comments WHITE BLOOD CELL COUNT (BEAKER) (test ekwj=792) 3.7 K/ L 3.5-10.5 RED BLOOD CELL COUNT (BEAKER) (test pfci=557) 2.35 M/ L 4.63-6.08 HEMOGLOBIN (BEAKER) (test vzmy=787) 7.4 GM/DL 13.7-17.5 HEMATOCRIT (BEAKER) (test dvqa=158) 22.1 % 40.1-51.0 MEAN CORPUSCULAR VOLUME (BEAKER) (test uxbp=053) 94.0 fL 79.0-92.2 MEAN CORPUSCULAR HEMOGLOBIN (BEAKER) (test 31.5 pg 25.7-32.2 ngdp=724) MEAN CORPUSCULAR HEMOGLOBIN CONC (BEAKER) (test 33.5 GM/DL 32.3-36.5 wcts=526) RED CELL DISTRIBUTION WIDTH (BEAKER) (test 14.8 % 11.6-14.4 nsxn=947) PLATELET COUNT (BEAKER) (test dtqy=281) 45 K/CU MM 150-450 MEAN PLATELET VOLUME (BEAKER) (test kogs=998) 8.8 fL 9.4-12.4 NUCLEATED RED BLOOD CELLS (BEAKER) (test 0 /100 WBC 0-0 xgoe=919) NEUTROPHILS RELATIVE PERCENT (BEAKER) (test 61 % abbd=095) LYMPHOCYTES RELATIVE PERCENT (BEAKER) (test 14 % galh=520) MONOCYTES RELATIVE PERCENT (BEAKER) (test 18 % exus=724) EOSINOPHILS RELATIVE PERCENT (BEAKER) (test 6 % dmhd=773) BASOPHILS RELATIVE PERCENT (BEAKER) (test 0 % desn=940) NEUTROPHILS ABSOLUTE COUNT (BEAKER) (test 2.25 K/ L 1.78-5.38 oaii=210) LYMPHOCYTES ABSOLUTE COUNT (BEAKER) (test 0.53 K/ L 1.32-3.57 gitq=257) MONOCYTES ABSOLUTE COUNT (BEAKER) (test mjny=525) 0.67 K/ L 0.30-0.82 EOSINOPHILS ABSOLUTE COUNT (BEAKER) (test 0.23 K/ L 0.04-0.54 nemh=942) BASOPHILS ABSOLUTE COUNT (BEAKER) (test hmma=830) 0.01 K/ L 0.01-0.08 IMMATURE GRANULOCYTES-RELATIVE PERCENT (BEAKER) 1 % 0-1 (test nlgq=5018) PROTHROMBIN [id number] 06:07:00 Test Item Value Reference Range Comments PROTIME (BEAKER) (test gvup=808) 21.4 seconds 11.7-14.7 INR (BEAKER) (test fhfy=898) 1.9 <=5.9 RECOMMENDED COUMADIN/WARFARIN INR THERAPY RANGESSTANDARD DOSE: 2.0 - 3.0 Includes: PROPHYLAXIS forvenous thrombosis, systemic embolization; TREATMENT for venous thrombosis and/or pulmonary embolus.HIGH RISK: Target INR is 2.5-3.5 for patients with mechanical heart valves.POCT-GLUCOSE [id number] 23:37:00 Test Item Value Reference Range Comments POC-GLUCOSE METER (BEAKER) 154 mg/dL 70-110 TESTED AT [address] (test hyjm=6246) [place] [address] BASIC METABOLIC [id number] 20:17:00 Test Item Value Reference Range Comments SODIUM (BEAKER) (test 125 meq/L 136-145 smny=788) POTASSIUM (BEAKER) (test 4.0 meq/L 3.5-5.1 mtwk=333) CHLORIDE (BEAKER) (test 94 meq/L 98-107 yxod=161) CO2 (BEAKER) (test 25 meq/L 22-29 omrs=673) BLOOD UREA NITROGEN 20 mg/dL 7-21 (BEAKER) (test jfbi=379) CREATININE (BEAKER) (test 1.34 mg/dL 0.57-1.25 ydcx=152) GLUCOSE RANDOM (BEAKER) 115 mg/dL 70-105 (test xniw=621) CALCIUM (BEAKER) (test 8.9 mg/dL 8.4-10.2 hsrr=612) EGFR (BEAKER) (test 56 mL/min/1.73 sq m ESTIMATED GFR IS NOT hzzf=1902) ACCURATE CREATININE CLEARANCE IN PREDICTING GLOMERULAR FILTRATION RATE. ESTIMATED GFR IS NOT APPLICABLE FOR DIALYSIS PATIENTS. POCT-GLUCOSE [id number] 17:59:00 Test Item Value Reference Range Comments POC-GLUCOSE METER (BEAKER) 161 mg/dL 70-110 TESTED AT [address] (test ufms=1453) [place] [address] BODY FLUID CULTURE + GRAM [id number] 13:31:00 Test Item Value Reference Range Comments CULTURE (BEAKER) (test nilb=9007) No growth GRAM STAIN RESULT (BEAKER) (test No organisms seen dgyv=8627) GRAM STAIN RESULT (BEAKER) (test No White blood cells seen mvno=21172) POCT-GLUCOSE [id number] 12:31:00 Test Item Value Reference Range Comments POC-GLUCOSE METER (BEAKER) 114 mg/dL 70-110 TESTED AT [address] (test vfol=9605) [place] [address] BASIC METABOLIC [id number] 11:33:00 Test Item Value Reference Range Comments SODIUM (BEAKER) (test 124 meq/L 136-145 xkpi=126) POTASSIUM (BEAKER) (test 4.1 meq/L 3.5-5.1 ewqz=367) CHLORIDE (BEAKER) (test 94 meq/L 98-107 huby=984) CO2 (BEAKER) (test 23 meq/L 22-29 ulyg=722) BLOOD UREA NITROGEN 20 mg/dL 7-21 (BEAKER) (test gmzx=275) CREATININE (BEAKER) (test 1.22 mg/dL 0.57-1.25 cfod=864) GLUCOSE RANDOM (BEAKER) 94 mg/dL 70-105 (test ctuz=112) CALCIUM (BEAKER) (test 8.8 mg/dL 8.4-10.2 rpel=286) EGFR (BEAKER) (test 62 mL/min/1.73 sq m ESTIMATED GFR IS NOT xcob=5714) ACCURATE CREATININE CLEARANCE IN PREDICTING GLOMERULAR FILTRATION RATE. ESTIMATED GFR IS NOT APPLICABLE FOR DIALYSIS PATIENTS. [id number] 09:24:00 Test Item Value Reference Range Comments FERRITIN (BEAKER) (test rpqq=781) 1685 ng/mL 5-275 POCT-GLUCOSE [id number] 07:59:00 Test Item Value Reference Range Comments POC-GLUCOSE METER (BEAKER) 225 mg/dL 70-110 TESTED AT [address] (test ujxl=2746) [facility] [id number] IRON, TIBC, % SAT. (WITHOUT FERRITIN)2018-08-29 07:54:00 Test Item Value Reference Range Comments IRON (BEAKER) (test honr=974) 98 ug/dL 40-160 TOTAL IRON BINDING CAPACITY (BEAKER) (test 90 ug/dL 250-450 fswf=400) IRON % SATURATION (2) (BEAKER) (test hoga=0313) 109 % 20-55 CALCIUM, [id number] 07:13:00 Test Item Value Reference Range Comments CALCIUM IONIZED (BEAKER) (test dleq=479) 1.10 mmol/L 1.12-1.27 PH, BLOOD (BEAKER) (test cwoa=3207) 7.37 [id number] 06:32:00 Test Item Value Reference Range Comments PHOSPHORUS (BEAKER) (test oqyy=871) 2.6 mg/dL 2.3-4.7 [id number] 06:32:00 Test Item Value Reference Range Comments MAGNESIUM (BEAKER) (test ayhw=964) 1.8 mg/dL 1.6-2.6 COMPREHENSIVE METABOLIC [id number] 06:32:00 Test Item Value Reference Range Comments TOTAL PROTEIN (BEAKER) 5.0 gm/dL 6.0-8.3 (test rxwg=822) ALBUMIN (BEAKER) (test 3.2 g/dL 3.5-5.0 qrds=0632) ALKALINE PHOSPHATASE 138 U/L 40-150 (BEAKER) (test hdlr=958) BILIRUBIN TOTAL (BEAKER) 2.1 mg/dL 0.2-1.2 (test oqjb=236) SODIUM (BEAKER) (test 126 meq/L 136-145 iras=495) POTASSIUM (BEAKER) (test 4.0 meq/L 3.5-5.1 gplt=246) CHLORIDE (BEAKER) (test 95 meq/L 98-107 cbjs=999) CO2 (BEAKER) (test 23 meq/L 22-29 nblj=509) BLOOD UREA NITROGEN 21 mg/dL 7-21 (BEAKER) (test htal=741) CREATININE (BEAKER) (test 1.15 mg/dL 0.57-1.25 lerj=584) GLUCOSE RANDOM (BEAKER) 110 mg/dL 70-105 (test xbov=804) CALCIUM (BEAKER) (test 8.8 mg/dL 8.4-10.2 fnzo=849) AST (SGOT) (BEAKER) (test 22 U/L 5-34 sacf=258) ALT (SGPT) (BEAKER) (test 11 U/L 6-55 kwmd=724) EGFR (BEAKER) (test 67 mL/min/1.73 sq m ESTIMATED GFR IS NOT gflu=0319) ACCURATE CREATININE CLEARANCE IN PREDICTING GLOMERULAR FILTRATION RATE. ESTIMATED GFR IS NOT APPLICABLE FOR DIALYSIS PATIENTS. BASIC METABOLIC [id number] 06:32:00 Test Item Value Reference Range Comments SODIUM (BEAKER) (test 126 meq/L 136-145 uzad=048) POTASSIUM (BEAKER) (test 4.0 meq/L 3.5-5.1 apou=382) CHLORIDE (BEAKER) (test 95 meq/L 98-107 swlp=299) CO2 (BEAKER) (test 23 meq/L 22-29 vjvd=014) BLOOD UREA NITROGEN 21 mg/dL 7-21 (BEAKER) (test wkrm=168) CREATININE (BEAKER) (test 1.15 mg/dL 0.57-1.25 piwu=034) GLUCOSE RANDOM (BEAKER) 110 mg/dL 70-105 (test aapv=496) CALCIUM (BEAKER) (test 8.8 mg/dL 8.4-10.2 oylt=203) EGFR (BEAKER) (test 67 mL/min/1.73 sq m ESTIMATED GFR IS NOT crbp=8289) ACCURATE CREATININE CLEARANCE IN PREDICTING GLOMERULAR FILTRATION RATE. ESTIMATED GFR IS NOT APPLICABLE FOR DIALYSIS PATIENTS. BILIRUBIN, [id number] 06:32:00 Test Item Value Reference Range Comments BILIRUBIN DIRECT (BEAKER) (test ivmw=147) 1.4 mg/dL 0.1-0.5 PROTHROMBIN [id number] 05:44:00 Test Item Value Reference Range Comments PROTIME (BEAKER) (test xiok=149) 20.9 seconds 11.7-14.7 INR (BEAKER) (test edrd=299) 1.8 <=5.9 RECOMMENDED COUMADIN/WARFARIN INR THERAPY RANGESSTANDARD DOSE: 2.0 - 3.0 Includes: PROPHYLAXIS forvenous thrombosis, systemic embolization; TREATMENT for venous thrombosis and/or pulmonary embolus.HIGH RISK: Target INR is 2.5-3.5 for patients with mechanical heart valves.CBC W/PLT COUNT & AUTO [id number] 05:43:00 Test Item Value Reference Range Comments WHITE BLOOD CELL COUNT (BEAKER) (test bawy=525) 4.0 K/ L 3.5-10.5 RED BLOOD CELL COUNT (BEAKER) (test iian=195) 2.30 M/ L 4.63-6.08 HEMOGLOBIN (BEAKER) (test nwgf=108) 7.5 GM/DL 13.7-17.5 HEMATOCRIT (BEAKER) (test fsle=944) 22.0 % 40.1-51.0 MEAN CORPUSCULAR VOLUME (BEAKER) (test gpot=605) 95.7 fL 79.0-92.2 MEAN CORPUSCULAR HEMOGLOBIN (BEAKER) (test 32.6 pg 25.7-32.2 ckbc=934) MEAN CORPUSCULAR HEMOGLOBIN CONC (BEAKER) (test 34.1 GM/DL 32.3-36.5 kyoa=925) RED CELL DISTRIBUTION WIDTH (BEAKER) (test 14.8 % 11.6-14.4 icnt=033) PLATELET COUNT (BEAKER) (test uwal=395) 51 K/CU MM 150-450 MEAN PLATELET VOLUME (BEAKER) (test mcmn=675) 8.8 fL 9.4-12.4 NUCLEATED RED BLOOD CELLS (BEAKER) (test 0 /100 WBC 0-0 hpyz=868) NEUTROPHILS RELATIVE PERCENT (BEAKER) (test 61 % ozdq=889) LYMPHOCYTES RELATIVE PERCENT (BEAKER) (test 12 % vbjh=714) MONOCYTES RELATIVE PERCENT (BEAKER) (test 19 % mrcd=607) EOSINOPHILS RELATIVE PERCENT (BEAKER) (test 7 % umof=450) BASOPHILS RELATIVE PERCENT (BEAKER) (test 0 % urtp=060) NEUTROPHILS ABSOLUTE COUNT (BEAKER) (test 2.43 K/ L 1.78-5.38 jxwk=895) LYMPHOCYTES ABSOLUTE COUNT (BEAKER) (test 0.49 K/ L 1.32-3.57 ahqf=567) MONOCYTES ABSOLUTE COUNT (BEAKER) (test brsk=639) 0.75 K/ L 0.30-0.82 EOSINOPHILS ABSOLUTE COUNT (BEAKER) (test 0.29 K/ L 0.04-0.54 tibz=936) BASOPHILS ABSOLUTE COUNT (BEAKER) (test bxie=608) 0.00 K/ L 0.01-0.08 IMMATURE GRANULOCYTES-RELATIVE PERCENT (BEAKER) 1 % 0-1 (test iqci=1052) POCT-GLUCOSE [id number] 22:23:00 Test Item Value Reference Range Comments POC-GLUCOSE METER (BEAKER) 166 mg/dL 70-110 TESTED AT [address] (test jcsl=8677) [facility] [id number] POCT-GLUCOSE [id number] 16:12:00 Test Item Value Reference Range Comments POC-GLUCOSE METER (BEAKER) 110 mg/dL 70-110 TESTED AT [address] (test rmtx=1729) [facility] [address] PTH, [id number] 15:57:00 Test Item Value Reference Range Comments PARATHYROID HORMONE INTACT (BEAKER) (test 26.2 pg/mL 8.5-72.5 actt=879) GAMMA GLUTAMYL TRANSFERASE (GGT)[id number] 15:51:00 Test Item Value Reference Range Comments GAMMA GLUTAMYL TRANSFERASE (BEAKER) (test ifok=250) 11 U/L 9-64 BASIC METABOLIC [id number] 15:49:00 Test Item Value Reference Range Comments SODIUM (BEAKER) (test 127 meq/L 136-145 yzko=606) POTASSIUM (BEAKER) (test 3.6 meq/L 3.5-5.1 irla=451) CHLORIDE (BEAKER) (test 97 meq/L 98-107 rzen=624) CO2 (BEAKER) (test 23 meq/L 22-29 biht=542) BLOOD UREA NITROGEN 20 mg/dL 7-21 (BEAKER) (test joba=964) CREATININE (BEAKER) (test 1.19 mg/dL 0.57-1.25 tvgr=138) GLUCOSE RANDOM (BEAKER) 123 mg/dL 70-105 (test lnij=603) CALCIUM (BEAKER) (test 8.6 mg/dL 8.4-10.2 rmsr=612) EGFR (BEAKER) (test 64 mL/min/1.73 sq m ESTIMATED GFR IS NOT ovst=1116) ACCURATE CREATININE CLEARANCE IN PREDICTING GLOMERULAR FILTRATION RATE. ESTIMATED GFR IS NOT APPLICABLE FOR DIALYSIS PATIENTS. VITAMIN D, [id number] 15:24:00 Test Item Value Reference Range Comments VITAMIN D 25-OH (BEAKER) (test fona=3517) 11.2 ng/mL 6.6-49.9 Effective 08/06/2017: Reference Range ChangeNew: 6.6-49.9 ng/mL Previous: 13.0 -47.8 ng/mLRecommended Vitamin D Target Range: 30.0-40.0 ng/mLPOCT-GLUCOSE [id number] 12:35:00 Test Item Value Reference Range Comments POC-GLUCOSE METER (BEAKER) 138 mg/dL 70-[address] [facility] [address] [facility] (test gzrc=8286) [facility] [address] BASIC METABOLIC [id number] 09:59:00 Test Item Value Reference Range Comments SODIUM (BEAKER) (test 130 meq/L 136-145 jfle=578) POTASSIUM (BEAKER) (test 4.1 meq/L 3.5-5.1 bfpm=330) CHLORIDE (BEAKER) (test 99 meq/L 98-107 wurj=959) CO2 (BEAKER) (test 24 meq/L 22-29 aqtd=605) BLOOD UREA NITROGEN 22 mg/dL 7-21 (BEAKER) (test bppj=822) CREATININE (BEAKER) (test 1.31 mg/dL 0.57-1.25 onrs=434) GLUCOSE RANDOM (BEAKER) 121 mg/dL 70-105 (test mxsx=335) CALCIUM (BEAKER) (test 9.4 mg/dL 8.4-10.2 iwxv=105) EGFR (BEAKER) (test 57 mL/min/1.73 sq m ESTIMATED GFR IS NOT fhek=5082) ACCURATE CREATININE CLEARANCE IN PREDICTING GLOMERULAR FILTRATION RATE. ESTIMATED GFR IS NOT APPLICABLE FOR DIALYSIS PATIENTS. POCT-GLUCOSE [id number] 08:17:00 Test Item Value Reference Range Comments POC-GLUCOSE METER (BEAKER) 131 mg/dL 70-110 TESTED AT [address] (test itbu=4714) [facility] [address] CALCIUM, [id number] 06:01:00 Test Item Value Reference Range Comments CALCIUM IONIZED (BEAKER) (test jknq=065) 1.06 mmol/L 1.12-1.27 PH, BLOOD (BEAKER) (test foeg=2058) 7.42 [id number] 05:52:00 Test Item Value Reference Range Comments PHOSPHORUS (BEAKER) (test nibf=226) 3.1 mg/dL 2.3-4.7 [id number] 05:52:00 Test Item Value Reference Range Comments MAGNESIUM (BEAKER) (test jbqa=942) 2.3 mg/dL 1.6-2.6 BASIC METABOLIC [id number] 05:52:00 Test Item Value Reference Range Comments SODIUM (BEAKER) (test 130 meq/L 136-145 tqgf=681) POTASSIUM (BEAKER) (test 3.8 meq/L 3.5-5.1 aqwy=293) CHLORIDE (BEAKER) (test 98 meq/L 98-107 ndsr=962) CO2 (BEAKER) (test 22 meq/L 22-29 spsv=778) BLOOD UREA NITROGEN 22 mg/dL 7-21 (BEAKER) (test ryjy=363) CREATININE (BEAKER) (test 1.37 mg/dL 0.57-1.25 rdob=570) GLUCOSE RANDOM (BEAKER) 118 mg/dL 70-105 (test weip=811) CALCIUM (BEAKER) (test 9.6 mg/dL 8.4-10.2 xmig=583) EGFR (BEAKER) (test 54 mL/min/1.73 sq m ESTIMATED GFR IS NOT fnbr=9415) ACCURATE CREATININE CLEARANCE IN PREDICTING GLOMERULAR FILTRATION RATE. ESTIMATED GFR IS NOT APPLICABLE FOR DIALYSIS PATIENTS. Specimen slightly ictericCOMPREHENSIVE METABOLIC [id number] 05:52:00 Test Item Value Reference Range Comments TOTAL PROTEIN (BEAKER) 5.6 gm/dL 6.0-8.3 (test jfes=387) ALBUMIN (BEAKER) (test 3.6 g/dL 3.5-5.0 uxrs=9272) ALKALINE PHOSPHATASE 146 U/L 40-150 (BEAKER) (test zvct=943) BILIRUBIN TOTAL (BEAKER) 2.5 mg/dL 0.2-1.2 (test lija=624) SODIUM (BEAKER) (test 130 meq/L 136-145 uczq=063) POTASSIUM (BEAKER) (test 3.8 meq/L 3.5-5.1 rmkj=740) CHLORIDE (BEAKER) (test 98 meq/L 98-107 rmxk=648) CO2 (BEAKER) (test 22 meq/L 22-29 cnqr=690) BLOOD UREA NITROGEN 22 mg/dL 7-21 (BEAKER) (test zrdz=580) CREATININE (BEAKER) (test 1.37 mg/dL 0.57-1.25 gbet=269) GLUCOSE RANDOM (BEAKER) 118 mg/dL 70-105 (test jkye=425) CALCIUM (BEAKER) (test 9.6 mg/dL 8.4-10.2 kxbc=569) AST (SGOT) (BEAKER) (test 25 U/L 5-34 nzjt=048) ALT (SGPT) (BEAKER) (test 10 U/L 6-55 cuke=057) EGFR (BEAKER) (test 54 mL/min/1.73 sq m ESTIMATED GFR IS NOT gwwb=9104) ACCURATE CREATININE CLEARANCE IN PREDICTING GLOMERULAR FILTRATION RATE. ESTIMATED GFR IS NOT APPLICABLE FOR DIALYSIS PATIENTS. Specimen slightly ictericBILIRUBIN, [id number] 05:52:00 Test Item Value Reference Range Comments BILIRUBIN DIRECT (BEAKER) (test sagt=156) 1.6 mg/dL 0.1-0.5 PROTHROMBIN [id number] 05:41:00 Test Item Value Reference Range Comments PROTIME (BEAKER) (test vxam=608) 21.3 seconds 11.7-14.7 INR (BEAKER) (test vdmp=775) 1.8 <=5.9 RECOMMENDED COUMADIN/WARFARIN INR THERAPY RANGESSTANDARD DOSE: 2.0 - 3.0 Includes: PROPHYLAXIS forvenous thrombosis, systemic embolization; TREATMENT for venous thrombosis and/or pulmonary embolus.HIGH RISK: Target INR is 2.5-3.5 for patients with mechanical heart valves.CBC W/PLT COUNT & AUTO [id number] 05:32:00 Test Item Value Reference Range Comments WHITE BLOOD CELL COUNT (BEAKER) (test nopf=927) 5.0 K/ L 3.5-10.5 RED BLOOD CELL COUNT (BEAKER) (test pjcg=860) 2.53 M/ L 4.63-6.08 HEMOGLOBIN (BEAKER) (test xwcu=326) 8.1 GM/DL 13.7-17.5 HEMATOCRIT (BEAKER) (test rgwk=834) 23.6 % 40.1-51.0 MEAN CORPUSCULAR VOLUME (BEAKER) (test vwms=115) 93.3 fL 79.0-92.2 MEAN CORPUSCULAR HEMOGLOBIN (BEAKER) (test 32.0 pg 25.7-32.2 jcim=325) MEAN CORPUSCULAR HEMOGLOBIN CONC (BEAKER) (test 34.3 GM/DL 32.3-36.5 wvqb=746) RED CELL DISTRIBUTION WIDTH (BEAKER) (test 14.6 % 11.6-14.4 pevt=480) PLATELET COUNT (BEAKER) (test vcdp=369) 73 K/CU MM 150-450 MEAN PLATELET VOLUME (BEAKER) (test rqxp=072) 8.8 fL 9.4-12.4 NUCLEATED RED BLOOD CELLS (BEAKER) (test 0 /100 WBC 0-0 kelw=365) NEUTROPHILS RELATIVE PERCENT (BEAKER) (test 71 % fyzg=659) LYMPHOCYTES RELATIVE PERCENT (BEAKER) (test 10 % lavg=712) MONOCYTES RELATIVE PERCENT (BEAKER) (test 16 % mqwk=775) EOSINOPHILS RELATIVE PERCENT (BEAKER) (test 3 % hdrb=954) BASOPHILS RELATIVE PERCENT (BEAKER) (test 0 % eeag=903) NEUTROPHILS ABSOLUTE COUNT (BEAKER) (test 3.56 K/ L 1.78-5.38 hllj=863) LYMPHOCYTES ABSOLUTE COUNT (BEAKER) (test 0.48 K/ L 1.32-3.57 ufes=373) MONOCYTES ABSOLUTE COUNT (BEAKER) (test fmgn=529) 0.80 K/ L 0.30-0.82 EOSINOPHILS ABSOLUTE COUNT (BEAKER) (test 0.13 K/ L 0.04-0.54 qfoj=514) BASOPHILS ABSOLUTE COUNT (BEAKER) (test ahog=730) 0.01 K/ L 0.01-0.08 IMMATURE GRANULOCYTES-RELATIVE PERCENT (BEAKER) 1 % 0-1 (test iyft=4326) POCT-GLUCOSE [id number] 21:24:00 Test Item Value Reference Range Comments POC-GLUCOSE METER (BEAKER) 137 mg/dL 70-110 TESTED AT [address] (test bsfj=6487) [place] [address] POCT-GLUCOSE [id number] 17:52:00 Test Item Value Reference Range Comments POC-GLUCOSE METER (BEAKER) 166 mg/dL 70-110 TESTED AT [address] (test mqkk=3611) [place] [address] BASIC METABOLIC [id number] 17:48:00 Test Item Value Reference Range Comments SODIUM (BEAKER) (test 128 meq/L 136-145 rqzx=613) POTASSIUM (BEAKER) (test 4.0 meq/L 3.5-5.1 dskj=847) CHLORIDE (BEAKER) (test 97 meq/L 98-107 fysv=571) CO2 (BEAKER) (test 23 meq/L 22-29 xknw=427) BLOOD UREA NITROGEN 24 mg/dL 7-21 (BEAKER) (test jsmt=378) CREATININE (BEAKER) (test 1.25 mg/dL 0.57-1.25 ieii=894) GLUCOSE RANDOM (BEAKER) 123 mg/dL 70-105 (test sdug=474) CALCIUM (BEAKER) (test 8.9 mg/dL 8.4-10.2 ippk=158) EGFR (BEAKER) (test 60 mL/min/1.73 sq m ESTIMATED GFR IS NOT troe=0092) ACCURATE CREATININE CLEARANCE IN PREDICTING GLOMERULAR FILTRATION RATE. ESTIMATED GFR IS NOT APPLICABLE FOR DIALYSIS PATIENTS. POCT-GLUCOSE [id number] 12:18:00 Test Item Value Reference Range Comments POC-GLUCOSE METER (BEAKER) 152 mg/dL 70-110 TESTED AT [address] (test tqdf=2620) [place] [address] POCT-GLUCOSE [id number] 09:31:00 Test Item Value Reference Range Comments POC-GLUCOSE METER (BEAKER) 142 mg/dL 70-110 TESTED AT [address] (test vtti=8055) [place] [address] BASIC METABOLIC [id number] 09:03:00 Test Item Value Reference Range Comments SODIUM (BEAKER) (test 125 meq/L 136-145 kgqs=098) POTASSIUM (BEAKER) (test 5.1 meq/L 3.5-5.1 Specimen slightly hclw=191) hemolyzed CHLORIDE (BEAKER) (test 95 meq/L 98-107 guoa=234) CO2 (BEAKER) (test 23 meq/L 22-29 dsmr=714) BLOOD UREA NITROGEN 26 mg/dL 7-21 (BEAKER) (test azce=524) CREATININE (BEAKER) (test 1.25 mg/dL 0.57-1.25 Specimen slightly mniu=590) hemolyzed GLUCOSE RANDOM (BEAKER) 99 mg/dL 70-105 (test ptgn=519) CALCIUM (BEAKER) (test 9.0 mg/dL 8.4-10.2 ejhx=953) EGFR (BEAKER) (test 60 mL/min/1.73 sq m ESTIMATED GFR IS NOT rakv=3378) ACCURATE CREATININE CLEARANCE IN PREDICTING GLOMERULAR FILTRATION RATE. ESTIMATED GFR IS NOT APPLICABLE FOR DIALYSIS PATIENTS. POCT-GLUCOSE [id number] 08:38:00 Test Item Value Reference Range Comments POC-GLUCOSE METER (BEAKER) 171 mg/dL 70-110 TESTED AT [address] (test bllt=2588) [place] [address] [id number] 05:30:00 Test Item Value Reference Range Comments PHOSPHORUS (BEAKER) (test jkyc=802) 2.9 mg/dL 2.3-4.7 [id number] 05:30:00 Test Item Value Reference Range Comments MAGNESIUM (BEAKER) (test xjaw=962) 2.2 mg/dL 1.6-2.6 COMPREHENSIVE METABOLIC [id number] 05:30:00 Test Item Value Reference Range Comments TOTAL PROTEIN (BEAKER) 5.2 gm/dL 6.0-8.3 (test qrhv=849) ALBUMIN (BEAKER) (test 3.4 g/dL 3.5-5.0 ahex=6597) ALKALINE PHOSPHATASE 134 U/L 40-150 (BEAKER) (test jqki=847) BILIRUBIN TOTAL (BEAKER) 2.3 mg/dL 0.2-1.2 (test qtja=448) SODIUM (BEAKER) (test 124 meq/L 136-145 egsw=944) POTASSIUM (BEAKER) (test 4.9 meq/L 3.5-5.1 osvj=549) CHLORIDE (BEAKER) (test 94 meq/L 98-107 fjqr=659) CO2 (BEAKER) (test 24 meq/L 22-29 wtfb=453) BLOOD UREA NITROGEN 27 mg/dL 7-21 (BEAKER) (test joco=397) CREATININE (BEAKER) (test 1.27 mg/dL 0.57-1.25 gpmo=671) GLUCOSE RANDOM (BEAKER) 122 mg/dL 70-105 (test kumu=230) CALCIUM (BEAKER) (test 9.2 mg/dL 8.4-10.2 dcqh=996) AST (SGOT) (BEAKER) (test 24 U/L 5-34 edzi=434) ALT (SGPT) (BEAKER) (test 10 U/L 6-55 scxl=708) EGFR (BEAKER) (test 59 mL/min/1.73 sq m ESTIMATED GFR IS NOT pohc=7777) ACCURATE CREATININE CLEARANCE IN PREDICTING GLOMERULAR FILTRATION RATE. ESTIMATED GFR IS NOT APPLICABLE FOR DIALYSIS PATIENTS. BILIRUBIN, [id number] 05:30:00 Test Item Value Reference Range Comments BILIRUBIN DIRECT (BEAKER) (test vmbz=320) 1.5 mg/dL 0.1-0.5 PROTHROMBIN [id number] 05:09:00 Test Item Value Reference Range Comments PROTIME (BEAKER) (test cmqo=217) 22.3 seconds 11.7-14.7 INR (BEAKER) (test kgtb=532) 2.0 <=5.9 RECOMMENDED COUMADIN/WARFARIN INR THERAPY RANGESSTANDARD DOSE: 2.0 - 3.0 Includes: PROPHYLAXIS forvenous thrombosis, systemic embolization; TREATMENT for venous thrombosis and/or pulmonary embolus.HIGH RISK: Target INR is 2.5-3.5 for patients with mechanical heart valves.CBC W/PLT COUNT & AUTO [id number] 04:59:00 Test Item Value Reference Range Comments WHITE BLOOD CELL COUNT (BEAKER) (test fscr=480) 5.0 K/ L 3.5-10.5 RED BLOOD CELL COUNT (BEAKER) (test bybn=667) 2.24 M/ L 4.63-6.08 HEMOGLOBIN (BEAKER) (test peyu=057) 7.2 GM/DL 13.7-17.5 HEMATOCRIT (BEAKER) (test gskc=007) 20.8 % 40.1-51.0 MEAN CORPUSCULAR VOLUME (BEAKER) (test fosd=559) 92.9 fL 79.0-92.2 MEAN CORPUSCULAR HEMOGLOBIN (BEAKER) (test 32.1 pg 25.7-32.2 hbcn=182) MEAN CORPUSCULAR HEMOGLOBIN CONC (BEAKER) (test 34.6 GM/DL 32.3-36.5 qpnr=296) RED CELL DISTRIBUTION WIDTH (BEAKER) (test 14.2 % 11.6-14.4 skzc=483) PLATELET COUNT (BEAKER) (test fafl=709) 56 K/CU MM 150-450 MEAN PLATELET VOLUME (BEAKER) (test sggf=345) 8.9 fL 9.4-12.4 NUCLEATED RED BLOOD CELLS (BEAKER) (test 0 /100 WBC 0-0 vlfr=724) NEUTROPHILS RELATIVE PERCENT (BEAKER) (test 82 % knot=083) LYMPHOCYTES RELATIVE PERCENT (BEAKER) (test 5 % adtg=191) MONOCYTES RELATIVE PERCENT (BEAKER) (test 12 % wsxv=890) EOSINOPHILS RELATIVE PERCENT (BEAKER) (test 0 % omiz=302) BASOPHILS RELATIVE PERCENT (BEAKER) (test 0 % dhhj=181) NEUTROPHILS ABSOLUTE COUNT (BEAKER) (test 4.12 K/ L 1.78-5.38 icvi=339) LYMPHOCYTES ABSOLUTE COUNT (BEAKER) (test 0.26 K/ L 1.32-3.57 wqyf=216) MONOCYTES ABSOLUTE COUNT (BEAKER) (test jzcp=034) 0.59 K/ L 0.30-0.82 EOSINOPHILS ABSOLUTE COUNT (BEAKER) (test 0.00 K/ L 0.04-0.54 zszt=215) BASOPHILS ABSOLUTE COUNT (BEAKER) (test ihxo=863) 0.00 K/ L 0.01-0.08 IMMATURE GRANULOCYTES-RELATIVE PERCENT (BEAKER) 1 % 0-1 (test jszc=7393) CALCIUM, [id number] 04:57:00 Test Item Value Reference Range Comments CALCIUM IONIZED (BEAKER) (test xenk=071) 1.14 mmol/L 1.12-1.27 PH, BLOOD (BEAKER) (test azlq=6748) 7.39 POCT-GLUCOSE [id number] 00:41:00 Test Item Value Reference Range Comments POC-GLUCOSE METER (BEAKER) 186 mg/dL 70-[address] [facility] [address] [facility] (test zoox=1227) [facility] [address] CORTISOL,60 [id number] 23:00:00 Test Item Value Reference Range Comments CORTISOL BASELINE NETWORKED (BEAKER) (test 7.5 mcg/dL bwph=6291) CORTISOL 30 MINUTE NETWORKED (BEAKER) (test 14.1 mcg/dL srak=4847) CORTISOL, 60 MINUTE (BEAKER) (test bihr=9388) 18.9 ug/dL ACTH STIMULATION TEST INTERPRETATION GUIDELINES(Synonyms: [...] serum cortisollevel 60 minutes after cosyntropin administration.CORTISOL,30 [id number] 22:05:00 Test Item Value Reference Range Comments CORTISOL BASELINE NETWORKED (BEAKER) (test 7.5 mcg/dL amiw=9298) CORTISOL, 30 MINUTE (BEAKER) (test huzw=3117) 14.1 ug/dL ACTH STIMULATION TEST INTERPRETATION GUIDELINES(Synonyms: [...] cortisollevel 60 minutes after cosyntropin administration.BASIC METABOLIC [id number] 21:42:00 Test Item Value Reference Range Comments SODIUM (BEAKER) (test 123 meq/L 136-145 tvea=490) POTASSIUM (BEAKER) (test 4.3 meq/L 3.5-5.1 phsm=573) CHLORIDE (BEAKER) (test 93 meq/L 98-107 oawq=708) CO2 (BEAKER) (test 24 meq/L 22-29 dvmy=953) BLOOD UREA NITROGEN 29 mg/dL 7-21 (BEAKER) (test xolj=277) CREATININE (BEAKER) (test 1.38 mg/dL 0.57-1.25 ubvz=436) GLUCOSE RANDOM (BEAKER) 109 mg/dL 70-105 (test tgqf=789) CALCIUM (BEAKER) (test 9.2 mg/dL 8.4-10.2 dhsz=950) EGFR (BEAKER) (test 54 mL/min/1.73 sq m ESTIMATED GFR IS NOT wlaz=2111) ACCURATE CREATININE CLEARANCE IN PREDICTING GLOMERULAR FILTRATION RATE. ESTIMATED GFR IS NOT APPLICABLE FOR DIALYSIS PATIENTS. Call results to Dr Almendarez METABOLIC [id number] 18:03:00 Test Item Value Reference Range Comments SODIUM (BEAKER) (test 124 meq/L 136-145 lrsk=633) POTASSIUM (BEAKER) (test 4.6 meq/L 3.5-5.1 uhzx=057) CHLORIDE (BEAKER) (test 93 meq/L 98-107 smoi=985) CO2 (BEAKER) (test 25 meq/L 22-29 wntu=592) BLOOD UREA NITROGEN 32 mg/dL 7-21 (BEAKER) (test nbsd=156) CREATININE (BEAKER) (test 1.40 mg/dL 0.57-1.25 ksnn=818) GLUCOSE RANDOM (BEAKER) 94 mg/dL 70-105 (test brks=513) CALCIUM (BEAKER) (test 9.0 mg/dL 8.4-10.2 odgb=887) EGFR (BEAKER) (test 53 mL/min/1.73 sq m ESTIMATED GFR IS NOT dfhr=0824) ACCURATE CREATININE CLEARANCE IN PREDICTING GLOMERULAR FILTRATION RATE. ESTIMATED GFR IS NOT APPLICABLE FOR DIALYSIS PATIENTS. BODY FLUID CELL COUNT WITH [id number] 13:54:00 Test Item Value Reference Range Comments APPEARANCE FLUID (BEAKER) (test gmyy=348) Slightly Hazy Clear COLOR FLUID (BEAKER) (test awhe=238) Yellow Colorless, Straw RBC FLUID (BEAKER) (test wxex=686) 1000 /cu mm <=1 ADJUSTED WBC FLUID (BEAKER) (test udvp=7197) 54 /cu mm <=5 LINING CELLS (BEAKER) (test culo=4621) 2 /cu mm <=1 NEUTROPHILS FLUID (BEAKER) (test kpmc=2690) 6 % LYMPHS FLUID (BEAKER) (test ftcb=329) 25 % MONO/MACROPHAGE FLUID (BEAKER) (test 69 % dqpj=242) EOSINOPHILS FLUID (BEAKER) (test jhig=484) 0 % BASO FLUID (BEAKER) (test myvk=099) 0 % CONTAINER BODY FLUID (BEAKER) (test Sterile Vial ktid=3805) ALBUMIN, BODY [id number] 13:45:00 Test Item Value Reference Range Comments ALBUMIN FLUID (BEAKER) (test hsxj=625) 0.8 gm/dL Reference Range: No Normals Assay performance has not been validated for this type of specimen.LACTATE DEHYDROGENASE (LDH), BODY [id number] 13:13:00 Test Item Value Reference Range Comments LACTATE DEHYDROGENASE FLUID (BEAKER) (test kptz=704) < U/L Absence of reference range indicates that normals have not been defined.Assay performance has not been validated for this type of specimen.GLUCOSE, BODY [id number] 13:13:00 Test Item Value Reference Range Comments GLUCOSE, BODY FLUID (BEAKER) (test wwrc=0364) 82 mg/dL Absence of reference range indicates that normals have not been defined.Assay performance has not been validated for this type of specimen.TRIGLYCERIDES, BODY [id number] 13:10:00 Test Item Value Reference Range Comments TRIGLYCERIDES FLUID (BEAKER) (test xkyl=922) 39 mg/dL Reference Range: No Normals Assay performance has not been validated for this type of specimen.PROTEIN, BODY [id number] 13:09:00 Test Item Value Reference Range Comments PROTEIN FLUID (BEAKER) (test ekli=139) 1.2 g/dL Absence of reference range indicates that normals have not been defined.Assay performance has not been validated for this type of specimen.CORTISOL, [id number] 12:52:00 Test Item Value Reference Range Comments CORTISOL, BASELINE (BEAKER) (test nmds=0239) 7.5 ug/dL ACTH STIMULATION TEST INTERPRETATION GUIDELINES(Synonyms: [...] cortisollevel 60 minutes after cosyntropin administration.BASIC METABOLIC [id number] 12:40:00 Test Item Value Reference Range Comments SODIUM (BEAKER) (test 119 meq/L 136-145 taql=682) POTASSIUM (BEAKER) (test 5.2 meq/L 3.5-5.1 imru=178) CHLORIDE (BEAKER) (test 90 meq/L 98-107 jigf=622) CO2 (BEAKER) (test 23 meq/L 22-29 qgth=779) BLOOD UREA NITROGEN 34 mg/dL 7-21 (BEAKER) (test ykhh=408) CREATININE (BEAKER) (test 1.46 mg/dL 0.57-1.25 xdpg=194) GLUCOSE RANDOM (BEAKER) 84 mg/dL 70-105 (test sdhc=784) CALCIUM (BEAKER) (test 8.8 mg/dL 8.4-10.2 jnrk=871) EGFR (BEAKER) (test 51 mL/min/1.73 sq m ESTIMATED GFR IS NOT wgep=2528) ACCURATE CREATININE CLEARANCE IN PREDICTING GLOMERULAR FILTRATION RATE. ESTIMATED GFR IS NOT APPLICABLE FOR DIALYSIS PATIENTS. Specimen slightly ictericRAD, CHEST, 1 VIEW, NON [id number] 11:50:00Reason for exam:->coughShould this be performed at the bedside?->YesFINAL REPORT Chest one view compared to May 12, 2018 Discussion: There is diffuse interstitial prominence. No effusion or pneumothorax. Heart size normal. IMPRESSIONS: No changeSigned: Nisbet, Karina MDReport Verified Date/ Time: 08/26/2018 11:50:19 Reading Location: [facility] Radiology Reading Room BASIC METABOLIC [id number] 09:35:00 Test Item Value Reference Range Comments SODIUM (BEAKER) (test 119 meq/L 136-145 pvoi=547) POTASSIUM (BEAKER) (test 4.9 meq/L 3.5-5.1 gchg=841) CHLORIDE (BEAKER) (test 89 meq/L 98-107 ggnc=047) CO2 (BEAKER) (test 23 meq/L 22-29 akru=155) BLOOD UREA NITROGEN 36 mg/dL 7-21 (BEAKER) (test clyx=636) CREATININE (BEAKER) (test 1.46 mg/dL 0.57-1.25 tjkl=375) GLUCOSE RANDOM (BEAKER) 83 mg/dL 70-105 (test wlxz=173) CALCIUM (BEAKER) (test 8.8 mg/dL 8.4-10.2 lqiw=864) EGFR (BEAKER) (test 51 mL/min/1.73 sq m ESTIMATED GFR IS NOT bhpi=9930) ACCURATE CREATININE CLEARANCE IN PREDICTING GLOMERULAR FILTRATION RATE. ESTIMATED GFR IS NOT APPLICABLE FOR DIALYSIS PATIENTS. POCT-GLUCOSE [id number] 05:56:00 Test Item Value Reference Range Comments POC-GLUCOSE METER (BEAKER) 86 mg/dL 70-[address] [facility] [address] [facility] (test emej=8039) [facility] [address] CBC W/PLT COUNT & AUTO [id number] 04:42:00 Test Item Value Reference Range Comments WHITE BLOOD CELL COUNT (BEAKER) (test iyuu=490) 10.5 K/ L 3.5-10.5 RED BLOOD CELL COUNT (BEAKER) (test ende=106) 2.37 M/ L 4.63-6.08 HEMOGLOBIN (BEAKER) (test gbwl=609) 7.4 GM/DL 13.7-17.5 HEMATOCRIT (BEAKER) (test pxhp=273) 21.6 % 40.1-51.0 MEAN CORPUSCULAR VOLUME (BEAKER) (test mons=887) 91.1 fL 79.0-92.2 MEAN CORPUSCULAR HEMOGLOBIN (BEAKER) (test 31.2 pg 25.7-32.2 mlck=946) MEAN CORPUSCULAR HEMOGLOBIN CONC (BEAKER) (test 34.3 GM/DL 32.3-36.5 pkgf=094) RED CELL DISTRIBUTION WIDTH (BEAKER) (test 14.4 % 11.6-14.4 khuo=368) PLATELET COUNT (BEAKER) (test kmwl=707) 67 K/CU MM 150-450 MEAN PLATELET VOLUME (BEAKER) (test pjnw=896) 8.3 fL 9.4-12.4 NUCLEATED RED BLOOD CELLS (BEAKER) (test 0 /100 WBC 0-0 lasf=788) NEUTROPHILS RELATIVE PERCENT (BEAKER) (test 82 % ujmh=215) LYMPHOCYTES RELATIVE PERCENT (BEAKER) (test 4 % xkxi=463) MONOCYTES RELATIVE PERCENT (BEAKER) (test 12 % baoz=298) EOSINOPHILS RELATIVE PERCENT (BEAKER) (test 1 % fqdz=785) BASOPHILS RELATIVE PERCENT (BEAKER) (test 0 % apic=420) NEUTROPHILS ABSOLUTE COUNT (BEAKER) (test 8.62 K/ L 1.78-5.38 mlqn=779) LYMPHOCYTES ABSOLUTE COUNT (BEAKER) (test 0.45 K/ L 1.32-3.57 erbf=382) MONOCYTES ABSOLUTE COUNT (BEAKER) (test wjnk=563) 1.31 K/ L 0.30-0.82 EOSINOPHILS ABSOLUTE COUNT (BEAKER) (test 0.10 K/ L 0.04-0.54 jxqo=363) BASOPHILS ABSOLUTE COUNT (BEAKER) (test ocqp=211) 0.00 K/ L 0.01-0.08 IMMATURE GRANULOCYTES-RELATIVE PERCENT (BEAKER) 1 % 0-1 (test ebfs=0938) COMPREHENSIVE METABOLIC [id number] 04:36:00 Test Item Value Reference Range Comments TOTAL PROTEIN (BEAKER) 4.9 gm/dL 6.0-8.3 (test zonc=314) ALBUMIN (BEAKER) (test 2.8 g/dL 3.5-5.0 ilir=6553) ALKALINE PHOSPHATASE 146 U/L 40-150 (BEAKER) (test ikjk=916) BILIRUBIN TOTAL (BEAKER) 2.9 mg/dL 0.2-1.2 (test pqxe=222) SODIUM (BEAKER) (test 118 meq/L 136-145 sogo=266) POTASSIUM (BEAKER) (test 5.2 meq/L 3.5-5.1 jgtg=560) CHLORIDE (BEAKER) (test 90 meq/L 98-107 axgq=598) CO2 (BEAKER) (test 23 meq/L 22-29 ninv=515) BLOOD UREA NITROGEN 37 mg/dL 7-21 (BEAKER) (test jbvz=448) CREATININE (BEAKER) (test 1.47 mg/dL 0.57-1.25 wzwx=041) GLUCOSE RANDOM (BEAKER) 65 mg/dL 70-105 (test jnkk=982) CALCIUM (BEAKER) (test 8.9 mg/dL 8.4-10.2 wrgw=054) AST (SGOT) (BEAKER) (test 29 U/L 5-34 wfjq=759) ALT (SGPT) (BEAKER) (test 10 U/L 6-55 uugz=630) EGFR (BEAKER) (test 50 mL/min/1.73 sq m ESTIMATED GFR IS NOT hoek=6366) ACCURATE CREATININE CLEARANCE IN PREDICTING GLOMERULAR FILTRATION RATE. ESTIMATED GFR IS NOT APPLICABLE FOR DIALYSIS PATIENTS. Specimen slightly [id number] 04:33:00 Test Item Value Reference Range Comments PHOSPHORUS (BEAKER) (test cssk=119) 3.1 mg/dL 2.3-4.7 [id number] 04:33:00 Test Item Value Reference Range Comments MAGNESIUM (BEAKER) (test qihz=176) 2.1 mg/dL 1.6-2.6 CALCIUM, [id number] 04:05:00 Test Item Value Reference Range Comments CALCIUM IONIZED (BEAKER) (test lnye=596) 1.13 mmol/L 1.12-1.27 PH, BLOOD (BEAKER) (test bqvi=0702) 7.38 BASIC METABOLIC [id number] 01:34:00 Test Item Value Reference Range Comments SODIUM (BEAKER) (test 117 meq/L 136-145 lnjb=758) POTASSIUM (BEAKER) (test 4.9 meq/L 3.5-5.1 zrvz=521) CHLORIDE (BEAKER) (test 89 meq/L 98-107 dvyl=963) CO2 (BEAKER) (test 22 meq/L 22-29 xgun=134) BLOOD UREA NITROGEN 37 mg/dL 7-21 (BEAKER) (test ruov=356) CREATININE (BEAKER) (test 1.52 mg/dL 0.57-1.25 afdk=083) GLUCOSE RANDOM (BEAKER) 67 mg/dL 70-105 (test zxgz=641) CALCIUM (BEAKER) (test 9.1 mg/dL 8.4-10.2 pjpw=581) EGFR (BEAKER) (test 48 mL/min/1.73 sq m ESTIMATED GFR IS NOT vgwr=6292) ACCURATE CREATININE CLEARANCE IN PREDICTING GLOMERULAR FILTRATION RATE. ESTIMATED GFR IS NOT APPLICABLE FOR DIALYSIS PATIENTS. Specimen slightly ictericU/S, ABDOMINAL, [id number] 23:49:00Abdomen limited area? Add comment if clarification [...] by ultrasound.Large abdominal ascites. Signed : Aba Aguusteeport Verified Date/Time: 08/25/2018 23:49:36 Reading Location: [facility] C013Y CT Body Reading Room POCT-GLUCOSE [id number] 23:16:00 Test Item Value Reference Range Comments POC-GLUCOSE METER (BEAKER) 89 mg/dL 70-[address] [facility] [address] [facility] (test hqmq=5014) [facility] [address] COMPREHENSIVE METABOLIC [id number] 21:15:00 Test Item Value Reference Range Comments TOTAL PROTEIN (BEAKER) 5.4 gm/dL 6.0-8.3 (test jvkz=015) ALBUMIN (BEAKER) (test 3.1 g/dL 3.5-5.0 krev=0727) ALKALINE PHOSPHATASE 164 U/L 40-150 (BEAKER) (test reka=392) BILIRUBIN TOTAL (BEAKER) 3.1 mg/dL 0.2-1.2 (test zrmt=761) SODIUM (BEAKER) (test 116 meq/L 136-145 rmcn=060) POTASSIUM (BEAKER) (test 5.0 meq/L 3.5-5.1 vwks=144) CHLORIDE (BEAKER) (test 87 meq/L 98-107 otty=666) CO2 (BEAKER) (test 22 meq/L 22-29 rofm=007) BLOOD UREA NITROGEN 38 mg/dL 7-21 (BEAKER) (test fxrl=764) CREATININE (BEAKER) (test 1.52 mg/dL 0.57-1.25 azpl=367) GLUCOSE RANDOM (BEAKER) 67 mg/dL 70-105 (test bero=564) CALCIUM (BEAKER) (test 9.1 mg/dL 8.4-10.2 otew=576) AST (SGOT) (BEAKER) (test 30 U/L 5-34 yich=811) ALT (SGPT) (BEAKER) (test 10 U/L 6-55 brxr=058) EGFR (BEAKER) (test 48 mL/min/1.73 sq m ESTIMATED GFR IS NOT cwru=6524) ACCURATE CREATININE CLEARANCE IN PREDICTING GLOMERULAR FILTRATION RATE. ESTIMATED GFR IS NOT APPLICABLE FOR DIALYSIS PATIENTS. Recheck and call Dr. Solorio with results [phone] slightly ictericBASIC METABOLIC [id number] 17:36:00 Test Item Value Reference Range Comments SODIUM (BEAKER) (test 119 meq/L 136-145 rast=667) POTASSIUM (BEAKER) (test 5.0 meq/L 3.5-5.1 aekr=230) CHLORIDE (BEAKER) (test 89 meq/L 98-107 jutx=452) CO2 (BEAKER) (test 22 meq/L 22-29 rqfx=035) BLOOD UREA NITROGEN 38 mg/dL 7-21 (BEAKER) (test qadx=292) CREATININE (BEAKER) (test 1.50 mg/dL 0.57-1.25 itpd=591) GLUCOSE RANDOM (BEAKER) 70 mg/dL 70-105 (test caey=280) CALCIUM (BEAKER) (test 8.9 mg/dL 8.4-10.2 cxqm=819) EGFR (BEAKER) (test 49 mL/min/1.73 sq m ESTIMATED GFR IS NOT rxxt=5088) ACCURATE CREATININE CLEARANCE IN PREDICTING GLOMERULAR FILTRATION RATE. ESTIMATED GFR IS NOT APPLICABLE FOR DIALYSIS PATIENTS. Specimen slightly ictericCT, CHEST, WITH HIGH RESOLUTION, INTERSTITAL LUNG [id number] 17:36:00Reason for exam:->follow up for lung noduleFINAL [...] MDReport Verified Date/Time: 08/25/2018 17:36:51 Reading Location: [facility] B1 C013Y CT Body Reading Room CT, SPINE, LUMBAR, WO [id number] 17:06:00FINAL REPORT CT thoracic and lumbar spine [...] MDReport Verified Date/Time: 08/25/2018 17:06:21 Reading Location: [facility] Radiology Reading Room CT, SPINE, THORACIC, WO [id number] 17:06:00FINAL REPORT CT thoracic and lumbar spine [...] Verified Date/Time: 08/25/2018 17: 06:21 Reading Location: [facility] Radiology Reading Room EOSINOPHIL SMEAR, [id number] 16:40:00 Test Item Value Reference Range Comments EOSINOPHIL SMEAR, URINE (BEAKER) (test No EOS seen No EOS seen mpxa=3006) SODIUM, RANDOM [id number] 15:13:00 Test Item Value Reference Range Comments SODIUM URINE (BEAKER) (test emlx=887) < meq/L Reference Range: No NormalsCOMPREHENSIVE METABOLIC [id number] 15:12:00 Test Item Value Reference Range Comments TOTAL PROTEIN (BEAKER) 5.0 gm/dL 6.0-8.3 (test xnsl=311) ALBUMIN (BEAKER) (test 2.9 g/dL 3.5-5.0 zsve=8439) ALKALINE PHOSPHATASE 154 U/L 40-150 (BEAKER) (test eoaq=346) BILIRUBIN TOTAL (BEAKER) 3.1 mg/dL 0.2-1.2 (test pnyr=641) SODIUM (BEAKER) (test 116 meq/L 136-145 hibg=870) POTASSIUM (BEAKER) (test 4.8 meq/L 3.5-5.1 jgxj=983) CHLORIDE (BEAKER) (test 87 meq/L 98-107 qsde=829) CO2 (BEAKER) (test 24 meq/L 22-29 tbre=369) BLOOD UREA NITROGEN 39 mg/dL 7-21 (BEAKER) (test qsxy=827) CREATININE (BEAKER) (test 1.53 mg/dL 0.57-1.25 achr=272) GLUCOSE RANDOM (BEAKER) 67 mg/dL 70-105 (test uheq=614) CALCIUM (BEAKER) (test 8.6 mg/dL 8.4-10.2 xdcc=983) AST (SGOT) (BEAKER) (test 24 U/L 5-34 frqh=576) ALT (SGPT) (BEAKER) (test 11 U/L 6-55 pkca=784) EGFR (BEAKER) (test 48 mL/min/1.73 sq m ESTIMATED GFR IS NOT zpkr=3744) ACCURATE CREATININE CLEARANCE IN PREDICTING GLOMERULAR FILTRATION RATE. ESTIMATED GFR IS NOT APPLICABLE FOR DIALYSIS PATIENTS. Specimen slightly ictericPROTEIN, RANDOM [id number] 15:12:00 Test Item Value Reference Range Comments PROTEIN, URINE (BEAKER) (test htvo=6638) < mg/dL 0-14 CREATININE, RANDOM [id number] 15:10:00 Test Item Value Reference Range Comments CREATININE URINE (BEAKER) (test xhvi=707) 75.0 mg/dL Reference Range: No NormalsURINALYSIS W/ [id number] 14:55:00 Test Item Value Reference Range Comments COLOR (BEAKER) (test hkrn=962) Yellow CLARITY (BEAKER) (test cvlr=760) Hazy SPECIFIC GRAVITY UA (BEAKER) (test afnh=621) 1.009 1.001-1.035 PH UA (BEAKER) (test qqcj=706) 5.5 5.0-8.0 PROTEIN UA (BEAKER) (test lato=480) Negative Negative GLUCOSE UA (BEAKER) (test sjnt=242) Negative Negative KETONES UA (BEAKER) (test ialw=416) Negative Negative BILIRUBIN UA (BEAKER) (test xagd=359) Negative Negative BLOOD UA (BEAKER) (test mlpa=849) Small Negative NITRITE UA (BEAKER) (test vanh=312) Negative Negative LEUKOCYTE ESTERASE UA (BEAKER) (test fbqx=446) Negative Negative UROBILINOGEN UA (BEAKER) (test akgg=322) 0.2 mg/dL 0.2-1.0 RBC UA (BEAKER) (test asbh=909) 20 /HPF WBC UA (BEAKER) (test ftps=885) 27 /HPF SQUAMOUS EPITHELIAL (BEAKER) (test rmpi=243) 18 /HPF SOURCE(BEAKER) (test dkzo=7166) URINALYSIS W/ REFLEX URINE [id number] 14:47:00 Test Item Value Reference Range Comments COLOR (BEAKER) (test qsag=727) Yellow CLARITY (BEAKER) (test zgwk=339) Hazy SPECIFIC GRAVITY UA (BEAKER) (test gzvp=029) 1.010 1.001-1.035 PH UA (BEAKER) (test nmkw=798) 5.5 5.0-8.0 PROTEIN UA (BEAKER) (test boni=467) Negative Negative GLUCOSE UA (BEAKER) (test qjqj=786) Negative Negative KETONES UA (BEAKER) (test knqj=669) Negative Negative BILIRUBIN UA (BEAKER) (test ivpi=175) Negative Negative BLOOD UA (BEAKER) (test meoz=428) Small Negative NITRITE UA (BEAKER) (test ixin=616) Negative Negative LEUKOCYTE ESTERASE UA (BEAKER) (test xljj=919) Negative Negative UROBILINOGEN UA (BEAKER) (test orgq=381) 0.2 mg/dL 0.2-1.0 RBC UA (BEAKER) (test niqn=470) 38 /HPF WBC UA (BEAKER) (test fune=785) 7 /HPF SQUAMOUS EPITHELIAL (BEAKER) (test tdfa=958) 18 /HPF AMORPHOUS CRYSTALS (BEAKER) (test lavv=7269) Rare SOURCE(BEAKER) (test jvyo=6765) OSMOLALITY, [id number] 14:40:00 Test Item Value Reference Range Comments OSMOLALITY URINE (BEAKER) (test cuaj=946) 284 mOsm/kg 40-1,400 [id number] 13:34:00 Test Item Value Reference Range Comments PROCALCITONIN (BEAKER) (test trbe=9663) 0.25 ng/mL <0.05 SEPSIS RISK (ng/mL)Low: 0.05-0.50Intermediate: 0.51-2.00High: & gt;=2.01OSMOLALITY, [id number] 12:43:00 Test Item Value Reference Range Comments OSMOLALITY URINE (BEAKER) (test hmto=026) 316 mOsm/kg 40-1,400 OSMOLALITY, [id number] 12:41:00 Test Item Value Reference Range Comments OSMOLALITY, SERUM (BEAKER) (test usvc=347) 259 mOsm/kg 275-295 TSH/FREE T4 IF [id number] 11:36:00 Test Item Value Reference Range Comments THYROID STIMULATING HORMONE (BEAKER) (test 2.55 uIU/mL 0.35-4.94 wdov=901) [id number] 11:34:00 Test Item Value Reference Range Comments CORTISOL, TOTAL (BEAKER) (test rdsf=9263) 7.9 ug/dL 3.7-19.4 SODIUM, RANDOM [id number] 11:34:00 Test Item Value Reference Range Comments SODIUM URINE (BEAKER) (test ajdd=450) < meq/L Reference Range: No NormalsBASIC METABOLIC [id number] 11:24:00 Test Item Value Reference Range Comments SODIUM (BEAKER) (test 113 meq/L 136-145 znfy=263) POTASSIUM (BEAKER) (test 5.3 meq/L 3.5-5.1 krnk=324) CHLORIDE (BEAKER) (test 86 meq/L 98-107 jwyh=964) CO2 (BEAKER) (test 21 meq/L 22-29 ejxy=615) BLOOD UREA NITROGEN 39 mg/dL 7-21 (BEAKER) (test evzp=475) CREATININE (BEAKER) (test 1.57 mg/dL 0.57-1.25 mdpq=618) GLUCOSE RANDOM (BEAKER) 64 mg/dL 70-105 (test uphc=402) CALCIUM (BEAKER) (test 9.1 mg/dL 8.4-10.2 focw=943) EGFR (BEAKER) (test 46 mL/min/1.73 sq m ESTIMATED GFR IS NOT vebk=4081) ACCURATE CREATININE CLEARANCE IN PREDICTING GLOMERULAR FILTRATION RATE. ESTIMATED GFR IS NOT APPLICABLE FOR DIALYSIS PATIENTS. Specimen slightly ictericURIC [id number] 11:21:00 Test Item Value Reference Range Comments URIC ACID (BEAKER) (test rhra=007) 8.2 mg/dL 2.6-7.2 Specimen slightly ictericCREATININE, RANDOM [id number] 11:21:00 Test Item Value Reference Range Comments CREATININE URINE (BEAKER) (test uhhn=815) 81.9 mg/dL Reference Range: No NormalsPOTASSIUM, RANDOM [id number] 11:21:00 Test Item Value Reference Range Comments POTASSIUM URINE (BEAKER) (test rbha=540) 19.2 meq/L Reference Range: No NormalsCBC W/PLT COUNT & AUTO [id number] 10: 20:00 Test Item Value Reference Range Comments WHITE BLOOD CELL COUNT (BEAKER) (test lqjk=495) 10.9 K/ L 3.5-10.5 RED BLOOD CELL COUNT (BEAKER) (test dktf=198) 2.46 M/ L 4.63-6.08 HEMOGLOBIN (BEAKER) (test haem=198) 7.9 GM/DL 13.7-17.5 HEMATOCRIT (BEAKER) (test khst=250) 22.2 % 40.1-51.0 MEAN CORPUSCULAR VOLUME (BEAKER) (test ayow=958) 90.2 fL 79.0-92.2 MEAN CORPUSCULAR HEMOGLOBIN (BEAKER) (test 32.1 pg 25.7-32.2 afuo=366) MEAN CORPUSCULAR HEMOGLOBIN CONC (BEAKER) (test 35.6 GM/DL 32.3-36.5 xgoh=932) RED CELL DISTRIBUTION WIDTH (BEAKER) (test 14.2 % 11.6-14.4 hjch=154) PLATELET COUNT (BEAKER) (test sxzf=706) 82 K/CU MM 150-450 MEAN PLATELET VOLUME (BEAKER) (test ifkj=586) 8.3 fL 9.4-12.4 NUCLEATED RED BLOOD CELLS (BEAKER) (test 0 /100 WBC 0-0 dooa=091) (CELLAVISION MANUAL DIFF)[id number] 10:20:00 Test Item Value Reference Range Comments NEUTROPHILS - REL (CELLAVISION)(BEAKER) (test 80 % jgfd=8708) LYMPHOCYTES - REL (CELLAVISION)(BEAKER) (test 2 % fwyy=9456) MONOCYTES - REL (CELLAVISION)(BEAKER) (test 6 % dqex=7970) BANDS - REL (CELLAVISION)(BEAKER) (test 12 % 0-10 kuok=9810) NEUTROPHILS - ABS (CELLAVISION)(BEAKER) (test 8.72 K/ul 1.78-5.38 eflp=5506) LYMPHOCYTES - ABS (CELLAVISION)(BEAKER) (test 0.22 K/ul 1.32-3.57 nqnt=3979) MONOCYTES - ABS (CELLAVISION)(BEAKER) (test 0.65 K/uL 0.30-0.82 vxeb=3093) BANDS - ABS (CELLAVISION)(BEAKER) (test 1.31 K/uL 0.00-0.80 mruf=5633) TOTAL COUNTED (BEAKER) (test agvl=4971) 100 WBC MORPHOLOGY (BEAKER) (test hsdu=137) Normal PLT MORPHOLOGY (BEAKER) (test xshz=368) Normal POLYCHROMATOPHILLIC RBCS(BEAKER) (test mjzd=573) 2+ moderate ANISOCYTOSIS (BEAKER) (test ybln=146) 2+ moderate POIKILOCYTES (BEAKER) (test bzgr=452) 2+ moderate ARTIFACT (CELLAVISION)(BEAKER) (test eoby=9959) Present PLATELET CONCENTRATION (CELLAVISION)(BEAKER) Decreased (test rbqh=8312) Received comment: User comments: Slide comments:COMPREHENSIVE METABOLIC [id number] 09:30:00 Test Item Value Reference Range Comments TOTAL PROTEIN (BEAKER) 5.2 gm/dL 6.0-8.3 (test qhjp=644) ALBUMIN (BEAKER) (test 3.0 g/dL 3.5-5.0 pzcn=0424) ALKALINE PHOSPHATASE 158 U/L 40-150 (BEAKER) (test dfgf=585) BILIRUBIN TOTAL (BEAKER) 2.9 mg/dL 0.2-1.2 (test qaat=206) SODIUM (BEAKER) (test 111 meq/L 136-145 qtwl=847) POTASSIUM (BEAKER) (test 5.5 meq/L 3.5-5.1 ighk=037) CHLORIDE (BEAKER) (test 87 meq/L 98-107 cfna=166) CO2 (BEAKER) (test 20 meq/L 22-29 gbih=748) BLOOD UREA NITROGEN 39 mg/dL 7-21 (BEAKER) (test topz=472) CREATININE (BEAKER) (test 1.55 mg/dL 0.57-1.25 hdqy=527) GLUCOSE RANDOM (BEAKER) 79 mg/dL 70-105 (test xskx=683) CALCIUM (BEAKER) (test 9.0 mg/dL 8.4-10.2 gjfz=377) AST (SGOT) (BEAKER) (test 27 U/L 5-34 tutb=601) ALT (SGPT) (BEAKER) (test 9 U/L 6-55 drxd=402) EGFR (BEAKER) (test 47 mL/min/1.73 sq m ESTIMATED GFR IS NOT mwge=7565) ACCURATE CREATININE CLEARANCE IN PREDICTING GLOMERULAR FILTRATION RATE. ESTIMATED GFR IS NOT APPLICABLE FOR DIALYSIS PATIENTS. Specimen slightly ictericLACTIC ACID, VENOUS, WHOLE [id number] 09:15:00 Test Item Value Reference Range Comments LACTATE BLOOD VENOUS (2) (BEAKER) (test 0.9 mmol/L 0.5-2.2 adlo=3999) Effective 02/28/2016: Units/Reference Range ChangeNew: 0.5-2.2 mmol/L Previous: 5 -20 mg/dLSpecimen slightly [id number] 09:01:00 Test Item Value Reference Range Comments AMMONIA (BEAKER) (test facu=903) 83 mol/L 18-72 [id number] 08:54:00 Test Item Value Reference Range Comments PROTIME (BEAKER) (test jlcd=659) 21.4 seconds 11.7-14.7 INR (BEAKER) (test wiam=972) 1.9 <=5.9 PARTIAL THROMBOPLASTIN TIME (BEAKER) (test 44.2 seconds 22.5-36.0 spcj=584) RECOMMENDED COUMADIN/WARFARIN INR THERAPY RANGESSTANDARD DOSE: 2.0 - 3.0 Includes: PROPHYLAXIS forvenous thrombosis, systemic embolization; TREATMENT for venous thrombosis and/or pulmonary embolus.HIGH RISK: Target INR is 2.5-3.5 for patients with mechanical heart valves.PROTHROMBIN [id number] 08:53: 00 Test Item Value Reference Range Comments PROTIME (BEAKER) (test jijx=667) 21.4 seconds 11.7-14.7 INR (BEAKER) (test vepc=178) 1.9 <=5.9 RECOMMENDED COUMADIN/WARFARIN INR THERAPY RANGESSTANDARD DOSE: 2.0 - 3.0 Includes: PROPHYLAXIS forvenous thrombosis, systemic embolization; TREATMENT for venous thrombosis and/or pulmonary embolus.HIGH RISK: Target INR is 2.5-3.5 for patients with mechanical heart valves.COMPREHENSIVE METABOLIC [id number] 13:54:00 Test Item Value Reference Range Comments TOTAL PROTEIN (BEAKER) 6.2 gm/dL 6.0-8.3 (test cjvu=267) ALBUMIN (BEAKER) (test 3.4 g/dL 3.5-5.0 mnnx=2878) ALKALINE PHOSPHATASE 190 U/L 40-150 (BEAKER) (test xjrb=491) BILIRUBIN TOTAL (BEAKER) 1.9 mg/dL 0.2-1.2 (test jbjk=925) SODIUM (BEAKER) (test 125 meq/L 136-145 ydzr=629) POTASSIUM (BEAKER) (test 5.0 meq/L 3.5-5.1 seaf=974) CHLORIDE (BEAKER) (test 99 meq/L 98-107 pisb=579) CO2 (BEAKER) (test 19 meq/L 22-29 zkgm=228) BLOOD UREA NITROGEN 36 mg/dL 7-21 (BEAKER) (test jatf=013) CREATININE (BEAKER) (test 1.65 mg/dL 0.57-1.25 ztbe=418) GLUCOSE RANDOM (BEAKER) 133 mg/dL 70-105 (test exqf=256) CALCIUM (BEAKER) (test 9.5 mg/dL 8.4-10.2 eumk=977) AST (SGOT) (BEAKER) (test 23 U/L 5-34 onma=506) ALT (SGPT) (BEAKER) (test 12 U/L 6-55 jutp=204) EGFR (BEAKER) (test 44 mL/min/1.73 sq m ESTIMATED GFR IS NOT lfna=5674) ACCURATE CREATININE CLEARANCE IN PREDICTING GLOMERULAR FILTRATION RATE. ESTIMATED GFR IS NOT APPLICABLE FOR DIALYSIS PATIENTS. BILIRUBIN, [id number] 13:54:00 Test Item Value Reference Range Comments BILIRUBIN DIRECT (BEAKER) (test jvnw=278) 1.4 mg/dL 0.1-0.5 CBC W/PLT COUNT & AUTO [id number] 13:50:00 Test Item Value Reference Range Comments WHITE BLOOD CELL COUNT (BEAKER) (test yoos=134) 6.8 K/ L 3.5-10.5 RED BLOOD CELL COUNT (BEAKER) (test ifas=846) 3.01 M/ L 4.63-6.08 HEMOGLOBIN (BEAKER) (test cboh=182) 9.5 GM/DL 13.7-17.5 HEMATOCRIT (BEAKER) (test sgyt=953) 28.3 % 40.1-51.0 MEAN CORPUSCULAR VOLUME (BEAKER) (test dojj=000) 94.0 fL 79.0-92.2 MEAN CORPUSCULAR HEMOGLOBIN (BEAKER) (test 31.6 pg 25.7-32.2 tlaw=210) MEAN CORPUSCULAR HEMOGLOBIN CONC (BEAKER) (test 33.6 GM/DL 32.3-36.5 xobm=139) RED CELL DISTRIBUTION WIDTH (BEAKER) (test 14.5 % 11.6-14.4 uksg=730) PLATELET COUNT (BEAKER) (test svyj=464) 131 K/CU MM 150-450 MEAN PLATELET VOLUME (BEAKER) (test ahzd=668) 9.0 fL 9.4-12.4 NUCLEATED RED BLOOD CELLS (BEAKER) (test 0 /100 WBC 0-0 bdvp=828) NEUTROPHILS RELATIVE PERCENT (BEAKER) (test 75 % crgj=987) LYMPHOCYTES RELATIVE PERCENT (BEAKER) (test 7 % hamq=634) MONOCYTES RELATIVE PERCENT (BEAKER) (test 14 % luae=474) EOSINOPHILS RELATIVE PERCENT (BEAKER) (test 2 % hprd=209) BASOPHILS RELATIVE PERCENT (BEAKER) (test 0 % vwqh=235) NEUTROPHILS ABSOLUTE COUNT (BEAKER) (test 5.11 K/ L 1.78-5.38 cphe=195) LYMPHOCYTES ABSOLUTE COUNT (BEAKER) (test 0.50 K/ L 1.32-3.57 kotb=230) MONOCYTES ABSOLUTE COUNT (BEAKER) (test 0.94 K/ L 0.30-0.82 qksq=333) EOSINOPHILS ABSOLUTE COUNT (BEAKER) (test 0.12 K/ L 0.04-0.54 yxxz=169) BASOPHILS ABSOLUTE COUNT (BEAKER) (test 0.03 K/ L 0.01-0.08 sowg=780) IMMATURE GRANULOCYTES-RELATIVE PERCENT (BEAKER) 1 % 0-1 (test pxmu=3163) PROTHROMBIN [id number] 13:46:00 Test Item Value Reference Range Comments PROTIME (BEAKER) (test thdv=423) 19.5 seconds 11.7-14.7 INR (BEAKER) (test zgph=614) 1.7 <=5.9 RECOMMENDED COUMADIN/WARFARIN INR THERAPY RANGESSTANDARD DOSE: 2.0 - 3.0 Includes: PROPHYLAXIS forvenous thrombosis, systemic embolization; TREATMENT for venous thrombosis and/or pulmonary embolus.HIGH RISK: Target INR is 2.5-3.5 for patients with mechanical heart valves.BONE AND/OR JOINT IMAGING, WHOLE [id number] 16:45:00FINAL REPORT PROCEDURE: BONE SCAN, WHOLE BODY CPT CODE: [id number] INDICATION: L3 vertebral body lesion follow-up R91.1 [...] Verified Date/ Time: 08/05/2018 16:45:34 Reading Location: [address] Reading Room NIR, VERTEBROPLASTY THORACIC, [id number] 17:23:00Reason for exam:->T11, T12, L2 compression fracturesAddendum [...] Verified Date/Time: 06/04/2018 17:23:27 Reading Location : [address] Radiology Reading RoomAddendum EndsFINAL REPORT HISTORY: [...] Verified Date/Time: 06/03/2018 17:56:43 Reading Location : [place] [address] Angio Body Reading Room ALPHA FETOPROTEIN (AFP), TUMOR [id number] 15:20:00 Test Item Value Reference Range Comments ALPHA-FETOPROTEIN (BEAKER) (test xkrm=0417) 2.2 ng/mL <10.0 COMPREHENSIVE METABOLIC [id number] 14:54:00 Test Item Value Reference Range Comments TOTAL PROTEIN (BEAKER) 6.5 gm/dL 6.0-8.3 (test uhsk=232) ALBUMIN (BEAKER) (test 3.6 g/dL 3.5-5.0 gazu=2523) ALKALINE PHOSPHATASE 342 U/L 40-150 (BEAKER) (test cqzl=192) BILIRUBIN TOTAL (BEAKER) 4.2 mg/dL 0.2-1.2 (test joop=315) SODIUM (BEAKER) (test 128 meq/L 136-145 vtvt=916) POTASSIUM (BEAKER) (test 4.6 meq/L 3.5-5.1 klbs=638) CHLORIDE (BEAKER) (test 100 meq/L 98-107 isri=941) CO2 (BEAKER) (test 21 meq/L 22-29 yfsl=078) BLOOD UREA NITROGEN 21 mg/dL 7-21 (BEAKER) (test dvlp=250) CREATININE (BEAKER) (test 1.37 mg/dL 0.57-1.25 rypq=358) GLUCOSE RANDOM (BEAKER) 108 mg/dL 70-105 (test svgo=451) CALCIUM (BEAKER) (test 9.5 mg/dL 8.4-10.2 nhaw=029) AST (SGOT) (BEAKER) (test 25 U/L 5-34 doxm=975) ALT (SGPT) (BEAKER) (test 10 U/L 6-55 ciep=568) EGFR (BEAKER) (test 54 mL/min/1.73 sq m ESTIMATED GFR IS NOT gtlp=9392) ACCURATE CREATININE CLEARANCE IN PREDICTING GLOMERULAR FILTRATION RATE. ESTIMATED GFR IS NOT APPLICABLE FOR DIALYSIS PATIENTS. Specimen slightly ictericBILIRUBIN, [id number] 14:54:00 Test Item Value Reference Range Comments BILIRUBIN DIRECT (BEAKER) (test padg=878) 2.1 mg/dL 0.1-0.5 CBC W/PLT COUNT & AUTO [id number] 14:52:00 Test Item Value Reference Range Comments WHITE BLOOD CELL COUNT (BEAKER) (test gynk=321) 3.9 K/ L 3.5-10.5 RED BLOOD CELL COUNT (BEAKER) (test mfzn=517) 2.69 M/ L 4.63-6.08 HEMOGLOBIN (BEAKER) (test eeiz=380) 9.1 GM/DL 13.7-17.5 HEMATOCRIT (BEAKER) (test pdau=085) 27.3 % 40.1-51.0 MEAN CORPUSCULAR VOLUME (BEAKER) (test squf=052) 101.5 fL 79.0-92.2 MEAN CORPUSCULAR HEMOGLOBIN (BEAKER) (test 33.8 pg 25.7-32.2 uspo=723) MEAN CORPUSCULAR HEMOGLOBIN CONC (BEAKER) (test 33.3 GM/DL 32.3-36.5 ugzp=172) RED CELL DISTRIBUTION WIDTH (BEAKER) (test 18.6 % 11.6-14.4 tfjz=948) PLATELET COUNT (BEAKER) (test pepz=524) 71 K/CU MM 150-450 MEAN PLATELET VOLUME (BEAKER) (test daic=693) 9.6 fL 9.4-12.4 NUCLEATED RED BLOOD CELLS (BEAKER) (test 0 /100 WBC 0-0 mqbz=384) NEUTROPHILS RELATIVE PERCENT (BEAKER) (test 62 % stxz=927) LYMPHOCYTES RELATIVE PERCENT (BEAKER) (test 16 % pxgs=038) MONOCYTES RELATIVE PERCENT (BEAKER) (test 17 % lefh=867) EOSINOPHILS RELATIVE PERCENT (BEAKER) (test 5 % gcif=471) BASOPHILS RELATIVE PERCENT (BEAKER) (test 0 % intn=022) NEUTROPHILS ABSOLUTE COUNT (BEAKER) (test 2.41 K/ L 1.78-5.38 zpuf=096) LYMPHOCYTES ABSOLUTE COUNT (BEAKER) (test 0.62 K/ L 1.32-3.57 slrx=134) MONOCYTES ABSOLUTE COUNT (BEAKER) (test bvpy=018) 0.65 K/ L 0.30-0.82 EOSINOPHILS ABSOLUTE COUNT (BEAKER) (test 0.20 K/ L 0.04-0.54 mtdr=999) BASOPHILS ABSOLUTE COUNT (BEAKER) (test cmso=140) 0.01 K/ L 0.01-0.08 IMMATURE GRANULOCYTES-RELATIVE PERCENT (BEAKER) 0 % 0-1 (test cijq=6715) PROTHROMBIN [id number] 14:50:00 Test Item Value Reference Range Comments PROTIME (BEAKER) (test dqdh=751) 19.5 seconds 11.7-14.7 INR (BEAKER) (test jmsr=713) 1.7 <=5.9 RECOMMENDED COUMADIN/WARFARIN INR THERAPY RANGESSTANDARD DOSE: 2.0 - 3.0 Includes: PROPHYLAXIS forvenous thrombosis, systemic embolization; TREATMENT for venous thrombosis and/or pulmonary embolus.HIGH RISK: Target INR is 2.5-3.5 for patients with mechanical heart valves.BODY FLUID CULTURE + GRAM [id number] 13:19:00 Test Item Value Reference Range Comments CULTURE (BEAKER) (test nfza=4331) No growth GRAM STAIN RESULT (BEAKER) (test No WBCs dniv=8641) GRAM STAIN RESULT (BEAKER) (test No organisms seen ucbs=05595) [id number] 17:36:00 Test Item Value Reference Range Comments SODIUM (BEAKER) (test uxod=008) 133 meq/L 136-145 POTASSIUM (BEAKER) (test lrel=633) 3.2 meq/L 3.5-5.1 CHLORIDE (BEAKER) (test wpkj=496) 102 meq/L 98-107 CO2 (BEAKER) (test rkug=002) 21 meq/L 22-29 [id number] 13:21:00 Test Item Value Reference Range Comments SODIUM (BEAKER) (test fauw=707) 134 meq/L 136-145 POTASSIUM (BEAKER) (test zynv=509) 3.0 meq/L 3.5-5.1 CHLORIDE (BEAKER) (test bdwm=532) 103 meq/L 98-107 CO2 (BEAKER) (test qvni=016) 22 meq/L 22-29 CALCIUM, [id number] 04:54:00 Test Item Value Reference Range Comments CALCIUM IONIZED (BEAKER) (test qpdu=708) 1.09 mmol/L 1.12-1.27 PH, BLOOD (BEAKER) (test whco=9855) 7.35 [id number] 04:04:00 Test Item Value Reference Range Comments PHOSPHORUS (BEAKER) (test quxp=678) 2.4 mg/dL 2.3-4.7 [id number] 04:04:00 Test Item Value Reference Range Comments MAGNESIUM (BEAKER) (test olzp=418) 2.0 mg/dL 1.6-2.6 HEPATIC FUNCTION [id number] 04:04:00 Test Item Value Reference Range Comments TOTAL PROTEIN (BEAKER) (test jtyt=022) 5.8 gm/dL 6.0-8.3 ALBUMIN (BEAKER) (test manx=0336) 4.1 g/dL 3.5-5.0 BILIRUBIN TOTAL (BEAKER) (test xucn=077) 3.9 mg/dL 0.2-1.2 BILIRUBIN DIRECT (BEAKER) (test nmkm=399) 2.0 mg/dL 0.1-0.5 ALKALINE PHOSPHATASE (BEAKER) (test wixn=771) 123 U/L 40-150 AST (SGOT) (BEAKER) (test shqs=551) 14 U/L 5-34 ALT (SGPT) (BEAKER) (test kbfs=312) < U/L 6-55 Specimen slightly ictericCOMPREHENSIVE METABOLIC [id number] 04:04:00 Test Item Value Reference Range Comments TOTAL PROTEIN (BEAKER) 5.8 gm/dL 6.0-8.3 (test dilq=126) ALBUMIN (BEAKER) (test 4.1 g/dL 3.5-5.0 lude=8560) ALKALINE PHOSPHATASE 123 U/L 40-150 (BEAKER) (test crbz=474) BILIRUBIN TOTAL (BEAKER) 3.9 mg/dL 0.2-1.2 (test ukcl=010) SODIUM (BEAKER) (test 135 meq/L 136-145 rsiw=792) POTASSIUM (BEAKER) (test 2.9 meq/L 3.5-5.1 sysj=206) CHLORIDE (BEAKER) (test 103 meq/L 98-107 xooa=166) CO2 (BEAKER) (test 21 meq/L 22-29 srqn=274) BLOOD UREA NITROGEN 18 mg/dL 7-21 (BEAKER) (test hvuj=634) CREATININE (BEAKER) (test 1.32 mg/dL 0.57-1.25 lsfv=993) GLUCOSE RANDOM (BEAKER) 126 mg/dL 70-105 (test oejk=245) CALCIUM (BEAKER) (test 9.8 mg/dL 8.4-10.2 rbvq=259) AST (SGOT) (BEAKER) (test 14 U/L 5-34 prua=512) ALT (SGPT) (BEAKER) (test < U/L 6-55 qgdi=139) EGFR (BEAKER) (test 57 mL/min/1.73 sq m ESTIMATED GFR IS NOT owpb=6162) ACCURATE CREATININE CLEARANCE IN PREDICTING GLOMERULAR FILTRATION RATE. ESTIMATED GFR IS NOT APPLICABLE FOR DIALYSIS PATIENTS. Specimen slightly ictericPROTHROMBIN [id number] 04:02:00 Test Item Value Reference Range Comments PROTIME (BEAKER) (test rrjf=044) 25.1 seconds 11.7-14.7 INR (BEAKER) (test joea=014) 2.3 <=5.9 RECOMMENDED COUMADIN/WARFARIN INR THERAPY RANGESSTANDARD DOSE: 2.0 - 3.0 Includes: PROPHYLAXIS forvenous thrombosis, systemic embolization; TREATMENT for venous thrombosis and/or pulmonary embolus.HIGH RISK: Target INR is 2.5-3.5 for patients with mechanical heart valves.CBC W/PLT COUNT & AUTO [id number] 03:55:00 Test Item Value Reference Range Comments WHITE BLOOD CELL COUNT (BEAKER) (test dwjn=257) 3.6 K/ L 3.5-10.5 RED BLOOD CELL COUNT (BEAKER) (test dvdk=709) 2.48 M/ L 4.63-6.08 HEMOGLOBIN (BEAKER) (test xaik=238) 7.9 GM/DL 13.7-17.5 HEMATOCRIT (BEAKER) (test luwn=458) 23.7 % 40.1-51.0 MEAN CORPUSCULAR VOLUME (BEAKER) (test pugo=297) 95.6 fL 79.0-92.2 MEAN CORPUSCULAR HEMOGLOBIN (BEAKER) (test 31.9 pg 25.7-32.2 hpit=069) MEAN CORPUSCULAR HEMOGLOBIN CONC (BEAKER) (test 33.3 GM/DL 32.3-36.5 vnxx=432) RED CELL DISTRIBUTION WIDTH (BEAKER) (test 18.8 % 11.6-14.4 uopb=495) PLATELET COUNT (BEAKER) (test tubr=463) 38 K/CU MM 150-450 MEAN PLATELET VOLUME (BEAKER) (test amoo=362) 9.3 fL 9.4-12.4 NUCLEATED RED BLOOD CELLS (BEAKER) (test 0 /100 WBC 0-0 fbbi=532) NEUTROPHILS RELATIVE PERCENT (BEAKER) (test 57 % iiyf=650) LYMPHOCYTES RELATIVE PERCENT (BEAKER) (test 15 % ygsn=203) MONOCYTES RELATIVE PERCENT (BEAKER) (test 22 % nrtp=312) EOSINOPHILS RELATIVE PERCENT (BEAKER) (test 4 % jdrx=105) BASOPHILS RELATIVE PERCENT (BEAKER) (test 0 % wlwr=728) NEUTROPHILS ABSOLUTE COUNT (BEAKER) (test 2.09 K/ L 1.78-5.38 fktp=598) LYMPHOCYTES ABSOLUTE COUNT (BEAKER) (test 0.54 K/ L 1.32-3.57 cxcq=537) MONOCYTES ABSOLUTE COUNT (BEAKER) (test zuid=893) 0.81 K/ L 0.30-0.82 EOSINOPHILS ABSOLUTE COUNT (BEAKER) (test 0.15 K/ L 0.04-0.54 ezxj=583) BASOPHILS ABSOLUTE COUNT (BEAKER) (test cgvo=522) 0.01 K/ L 0.01-0.08 IMMATURE GRANULOCYTES-RELATIVE PERCENT (BEAKER) 1 % 0-1 (test gsma=1010) [id number] 18:07:00 Test Item Value Reference Range Comments SODIUM (BEAKER) (test jlqz=185) 132 meq/L 136-145 POTASSIUM (BEAKER) (test 2.9 meq/L 3.5-5.1 Specimen slightly hemolyzed gbtr=573) CHLORIDE (BEAKER) (test 101 meq/L 98-107 oeha=659) CO2 (BEAKER) (test ndke=133) 18 meq/L 22-29 LACTIC ACID, VENOUS, WHOLE [id number] 16:43:00 Test Item Value Reference Range Comments LACTATE BLOOD VENOUS (2) 1.6 mmol/L 0.5-2.2 Specimen slightly hemolyzed (BEAKER) (test oedp=7625) Effective 02/28/2016: Units/Reference Range ChangeNew: 0.5-2.2 mmol/L Previous: 5 -20 mg/dLSpecimen slightly ictericBODY FLUID CULTURE + GRAM [id number] 12: 08:00 Test Item Value Reference Range Comments CULTURE (BEAKER) (test wovf=1940) No growth GRAM STAIN RESULT (BEAKER) (test <1+ WBCs nkki=0030) GRAM STAIN RESULT (BEAKER) (test No organisms seen jjem=36059) [id number] 08:10:00 Test Item Value Reference Range Comments PHOSPHORUS (BEAKER) (test vhix=087) 2.8 mg/dL 2.3-4.7 [id number] 08:10:00 Test Item Value Reference Range Comments MAGNESIUM (BEAKER) (test gomo=569) 2.2 mg/dL 1.6-2.6 COMPREHENSIVE METABOLIC [id number] 08:10:00 Test Item Value Reference Range Comments TOTAL PROTEIN (BEAKER) 6.2 gm/dL 6.0-8.3 (test yuaw=932) ALBUMIN (BEAKER) (test 4.4 g/dL 3.5-5.0 gowk=0617) ALKALINE PHOSPHATASE 121 U/L 40-150 (BEAKER) (test vwyb=915) BILIRUBIN TOTAL (BEAKER) 4.4 mg/dL 0.2-1.2 (test tmhj=353) SODIUM (BEAKER) (test 135 meq/L 136-145 wlhl=193) POTASSIUM (BEAKER) (test 2.8 meq/L 3.5-5.1 ftck=197) CHLORIDE (BEAKER) (test 102 meq/L 98-107 rarm=842) CO2 (BEAKER) (test 21 meq/L 22-29 dbts=747) BLOOD UREA NITROGEN 20 mg/dL 7-21 (BEAKER) (test hrds=671) CREATININE (BEAKER) (test 1.34 mg/dL 0.57-1.25 wsqm=411) GLUCOSE RANDOM (BEAKER) 132 mg/dL 70-105 (test zhij=982) CALCIUM (BEAKER) (test 10.0 mg/dL 8.4-10.2 axwp=571) AST (SGOT) (BEAKER) (test 16 U/L 5-34 kfku=352) ALT (SGPT) (BEAKER) (test 6 U/L 6-55 zsvi=449) EGFR (BEAKER) (test 56 mL/min/1.73 sq m ESTIMATED GFR IS NOT hjtk=3286) ACCURATE CREATININE CLEARANCE IN PREDICTING GLOMERULAR FILTRATION RATE. ESTIMATED GFR IS NOT APPLICABLE FOR DIALYSIS PATIENTS. Specimen slightly ictericHEPATIC FUNCTION [id number] 08:10:00 Test Item Value Reference Range Comments TOTAL PROTEIN (BEAKER) (test kqeo=834) 6.2 gm/dL 6.0-8.3 ALBUMIN (BEAKER) (test undc=9791) 4.4 g/dL 3.5-5.0 BILIRUBIN TOTAL (BEAKER) (test uqum=972) 4.4 mg/dL 0.2-1.2 BILIRUBIN DIRECT (BEAKER) (test dkpf=584) 1.9 mg/dL 0.1-0.5 ALKALINE PHOSPHATASE (BEAKER) (test sovt=466) 121 U/L 40-150 AST (SGOT) (BEAKER) (test azug=084) 16 U/L 5-34 ALT (SGPT) (BEAKER) (test ihlt=294) 6 U/L 6-55 Specimen slightly ictericCALCIUM, [id number] 07:20:00 Test Item Value Reference Range Comments CALCIUM IONIZED (BEAKER) (test ikmu=165) 1.01 mmol/L 1.12-1.27 PH, BLOOD (BEAKER) (test lmbz=6817) 7.49 CBC W/PLT COUNT & AUTO [id number] 06:59:00 Test Item Value Reference Range Comments WHITE BLOOD CELL COUNT (BEAKER) (test yvlf=176) 4.1 K/ L 3.5-10.5 RED BLOOD CELL COUNT (BEAKER) (test jurf=996) 2.62 M/ L 4.63-6.08 HEMOGLOBIN (BEAKER) (test dgmp=468) 8.2 GM/DL 13.7-17.5 HEMATOCRIT (BEAKER) (test osxe=682) 24.9 % 40.1-51.0 MEAN CORPUSCULAR VOLUME (BEAKER) (test iavr=231) 95.0 fL 79.0-92.2 MEAN CORPUSCULAR HEMOGLOBIN (BEAKER) (test 31.3 pg 25.7-32.2 xrzc=829) MEAN CORPUSCULAR HEMOGLOBIN CONC (BEAKER) (test 32.9 GM/DL 32.3-36.5 typs=138) RED CELL DISTRIBUTION WIDTH (BEAKER) (test 18.6 % 11.6-14.4 jzca=195) PLATELET COUNT (BEAKER) (test zyjh=850) 38 K/CU MM 150-450 MEAN PLATELET VOLUME (BEAKER) (test vgyi=795) 9.3 fL 9.4-12.4 NUCLEATED RED BLOOD CELLS (BEAKER) (test 0 /100 WBC 0-0 qvis=228) NEUTROPHILS RELATIVE PERCENT (BEAKER) (test 66 % pjba=690) LYMPHOCYTES RELATIVE PERCENT (BEAKER) (test 12 % agll=489) MONOCYTES RELATIVE PERCENT (BEAKER) (test 18 % wxhu=218) EOSINOPHILS RELATIVE PERCENT (BEAKER) (test 3 % tbig=559) BASOPHILS RELATIVE PERCENT (BEAKER) (test 1 % rfcg=805) NEUTROPHILS ABSOLUTE COUNT (BEAKER) (test 2.74 K/ L 1.78-5.38 lnve=671) LYMPHOCYTES ABSOLUTE COUNT (BEAKER) (test 0.49 K/ L 1.32-3.57 kowk=730) MONOCYTES ABSOLUTE COUNT (BEAKER) (test ckou=647) 0.75 K/ L 0.30-0.82 EOSINOPHILS ABSOLUTE COUNT (BEAKER) (test 0.11 K/ L 0.04-0.54 jweq=976) BASOPHILS ABSOLUTE COUNT (BEAKER) (test nvso=169) 0.02 K/ L 0.01-0.08 IMMATURE GRANULOCYTES-RELATIVE PERCENT (BEAKER) 1 % 0-1 (test qknx=8051) PROTHROMBIN [id number] 06:56:00 Test Item Value Reference Range Comments PROTIME (BEAKER) (test rwan=050) 24.5 seconds 11.7-14.7 INR (BEAKER) (test hxqs=511) 2.2 <=5.9 RECOMMENDED COUMADIN/WARFARIN INR THERAPY RANGESSTANDARD DOSE: 2.0 - 3.0 Includes: PROPHYLAXIS forvenous thrombosis, systemic embolization; TREATMENT for venous thrombosis and/or pulmonary embolus.HIGH RISK: Target INR is 2.5-3.5 for patients with mechanical heart valves.BODY FLUID CELL COUNT WITH [id number] 18:36:00 Test Item Value Reference Range Comments APPEARANCE FLUID (BEAKER) (test smsi=934) Hazy Clear COLOR FLUID (BEAKER) (test eqko=291) Yellow Colorless, Straw RBC FLUID (BEAKER) (test bokp=532) 2000 /cu mm <=1 ADJUSTED WBC FLUID (BEAKER) (test wvuk=8784) 96 /cu mm <=5 LINING CELLS (BEAKER) (test spli=2420) 2 /cu mm <=1 NEUTROPHILS FLUID (BEAKER) (test ckun=3460) 4 % LYMPHS FLUID (BEAKER) (test ymvm=224) 11 % MONO/MACROPHAGE FLUID (BEAKER) (test jpvv=221) 85 % EOSINOPHILS FLUID (BEAKER) (test juhy=345) 0 % BASO FLUID (BEAKER) (test gsuw=113) 0 % CONTAINER BODY FLUID (BEAKER) (test krzz=5042) EDTA Tube U/S, [id number] 12:49:00Limit to 4L due to AKIReason for exam:-> ascitesFINAL REPORT Indication: Ascites. Technique: Ultrasound guided paracentesis. Findings:Preliminary ultrasound confirms ascites. A safe window was identified in the midline (suprapubic). The procedure was explained to the patient and informed consent was signed. The skin was marked and prepped in standard sterile fashion. 2% lidocaine was used for local anesthesia. A 5 Mal[place]ian needle catheter system was advanced into the peritoneal space. 3300 cc clear yellow fluid was taken off.Sample of the fluid was sent to the laboratory. Patient tolerated the procedure well. Impression: Ultrasound guided paracentesis. Signed: Aristeo Xiong [facility]AD[facility]ort Verified Date/ Time: 05/13/2018 12:49:12 Reading Location: [facility] [id number] Ultrasound Reading Room 12: 49 PMCALCIUM, [id number] 05:29:00 Test Item Value Reference Range Comments CALCIUM IONIZED (BEAKER) (test besa=182) 1.10 mmol/L 1.12-1.27 PH, BLOOD (BEAKER) (test efaw=5658) 7.35 B-TYPE NATRIURETIC FACTOR (BNP)2018-05-13 04:48:00 Test Item Value Reference Range Comments B-TYPE NATRIURETIC PEPTIDE (BEAKER) (test 274 pg/mL 0-100 vocr=057) [id number] 04:44:00 Test Item Value Reference Range Comments PHOSPHORUS (BEAKER) (test yqjq=078) 3.0 mg/dL 2.3-4.7 [id number] 04:44:00 Test Item Value Reference Range Comments MAGNESIUM (BEAKER) (test wbfc=466) 2.0 mg/dL 1.6-2.6 COMPREHENSIVE METABOLIC [id number] 04:44:00 Test Item Value Reference Range Comments TOTAL PROTEIN (BEAKER) 6.2 gm/dL 6.0-8.3 (test dvuo=576) ALBUMIN (BEAKER) (test 4.3 g/dL 3.5-5.0 byly=2018) ALKALINE PHOSPHATASE 134 U/L 40-150 (BEAKER) (test icho=532) BILIRUBIN TOTAL (BEAKER) 4.4 mg/dL 0.2-1.2 (test wzgr=605) SODIUM (BEAKER) (test 131 meq/L 136-145 henn=597) POTASSIUM (BEAKER) (test 3.7 meq/L 3.5-5.1 csuv=986) CHLORIDE (BEAKER) (test 96 meq/L 98-107 egms=795) CO2 (BEAKER) (test 26 meq/L 22-29 dkwq=430) BLOOD UREA NITROGEN 20 mg/dL 7-21 (BEAKER) (test ttdm=318) CREATININE (BEAKER) (test 1.60 mg/dL 0.57-1.25 pbgx=906) GLUCOSE RANDOM (BEAKER) 149 mg/dL 70-105 (test boit=263) CALCIUM (BEAKER) (test 10.0 mg/dL 8.4-10.2 yqvw=897) AST (SGOT) (BEAKER) (test 18 U/L 5-34 prdj=689) ALT (SGPT) (BEAKER) (test 7 U/L 6-55 fccs=273) EGFR (BEAKER) (test 46 mL/min/1.73 sq m ESTIMATED GFR IS NOT kptx=4244) ACCURATE CREATININE CLEARANCE IN PREDICTING GLOMERULAR FILTRATION RATE. ESTIMATED GFR IS NOT APPLICABLE FOR DIALYSIS PATIENTS. Specimen slightly ictericHEPATIC FUNCTION [id number] 04:44:00 Test Item Value Reference Range Comments TOTAL PROTEIN (BEAKER) (test voci=817) 6.2 gm/dL 6.0-8.3 ALBUMIN (BEAKER) (test ihgd=8953) 4.3 g/dL 3.5-5.0 BILIRUBIN TOTAL (BEAKER) (test xuda=451) 4.4 mg/dL 0.2-1.2 BILIRUBIN DIRECT (BEAKER) (test ycuw=240) 2.4 mg/dL 0.1-0.5 ALKALINE PHOSPHATASE (BEAKER) (test rzle=359) 134 U/L 40-150 AST (SGOT) (BEAKER) (test jqeo=144) 18 U/L 5-34 ALT (SGPT) (BEAKER) (test pixp=563) 7 U/L 6-55 Specimen slightly ictericPROTHROMBIN [id number] 04:30:00 Test Item Value Reference Range Comments PROTIME (BEAKER) (test kpkx=895) 23.8 seconds 11.7-14.7 INR (BEAKER) (test naid=231) 2.1 <=5.9 RECOMMENDED COUMADIN/WARFARIN INR THERAPY RANGESSTANDARD DOSE: 2.0 - 3.0 Includes: PROPHYLAXIS forvenous thrombosis, systemic embolization; TREATMENT for venous thrombosis and/or pulmonary embolus.HIGH RISK: Target INR is 2.5-3.5 for patients with mechanical heart valves.CBC W/PLT COUNT & AUTO [id number] 04:19:00 Test Item Value Reference Range Comments WHITE BLOOD CELL COUNT (BEAKER) (test ljzm=720) 4.0 K/ L 3.5-10.5 RED BLOOD CELL COUNT (BEAKER) (test eaef=202) 2.60 M/ L 4.63-6.08 HEMOGLOBIN (BEAKER) (test jidn=874) 8.2 GM/DL 13.7-17.5 HEMATOCRIT (BEAKER) (test flhe=514) 24.6 % 40.1-51.0 MEAN CORPUSCULAR VOLUME (BEAKER) (test pgkf=499) 94.6 fL 79.0-92.2 MEAN CORPUSCULAR HEMOGLOBIN (BEAKER) (test 31.5 pg 25.7-32.2 aobk=954) MEAN CORPUSCULAR HEMOGLOBIN CONC (BEAKER) (test 33.3 GM/DL 32.3-36.5 ghom=606) RED CELL DISTRIBUTION WIDTH (BEAKER) (test 18.1 % 11.6-14.4 zban=111) PLATELET COUNT (BEAKER) (test pvll=041) 46 K/CU MM 150-450 MEAN PLATELET VOLUME (BEAKER) (test vebz=713) 9.1 fL 9.4-12.4 NUCLEATED RED BLOOD CELLS (BEAKER) (test 0 /100 WBC 0-0 dehn=715) NEUTROPHILS RELATIVE PERCENT (BEAKER) (test 62 % uvga=033) LYMPHOCYTES RELATIVE PERCENT (BEAKER) (test 13 % wuia=300) MONOCYTES RELATIVE PERCENT (BEAKER) (test 21 % ejvt=275) EOSINOPHILS RELATIVE PERCENT (BEAKER) (test 3 % gzxk=367) BASOPHILS RELATIVE PERCENT (BEAKER) (test 0 % kjfr=054) NEUTROPHILS ABSOLUTE COUNT (BEAKER) (test 2.49 K/ L 1.78-5.38 ibmo=226) LYMPHOCYTES ABSOLUTE COUNT (BEAKER) (test 0.53 K/ L 1.32-3.57 qeyu=042) MONOCYTES ABSOLUTE COUNT (BEAKER) (test lyin=622) 0.86 K/ L 0.30-0.82 EOSINOPHILS ABSOLUTE COUNT (BEAKER) (test 0.10 K/ L 0.04-0.54 ryim=245) BASOPHILS ABSOLUTE COUNT (BEAKER) (test ksui=665) 0.01 K/ L 0.01-0.08 IMMATURE GRANULOCYTES-RELATIVE PERCENT (BEAKER) 1 % 0-1 (test jbsn=7651) TISSUE [id number] 14:55:00Surgical Pathology Report Case: [id number] Authorizing Provider: Karina Rain MD Collected: 05/08/20181999 Ordering Location: [address] Received: 05/11/2018 0837 Service Pathologist: Jesús Craig MD Specimen: Bone L3 VERTEBRAL BODYBONE BIOPSY:BONE AND BONE MARROW, NEGATIVE FOR MALIGNANCY.SEE DIAGNOSTIC COMMENT. Signing Pathologist Direct Phone Line: [phone] signed by Jesús Craig MD on 05/12/2018 [...] as thesampled material may not be fully account development representative. This case was discussed with Dr. Andrea Mason, sr. operations manager.[id number], [id number], [id number], [id number] fracture of body thoracic vertebralL3 vertebral body [...] developed and its performance characteristics determined by [facility], Pathology Laboratory. It has not been cleared [...] clinical laboratory testing.RAD, CHEST, 1 VIEW, NON [id number] 13:56:00Reason for exam:->edemaShould this be performed at the bedside?->YesFINAL REPORT Chest one view compared to December 30 Discussion: Ill-defined bilateral airspace opacities are worse since the previous study although this may reflect a lesser inspiratory effort. No gross effusion or pneumothorax. Signed: Karina Pugh Verified Date/Time : 05/12/2018 13:56:44 Reading Location: [address] Consult Reading Room CALCIUM [id number] 06:58:00 Test Item Value Reference Range Comments CALCIUM IONIZED (BEAKER) (test fxby=463) 1.11 mmol/L 1.12-1.27 PH, BLOOD (BEAKER) (test ffkt=7359) 7.36 [id number] 06:31:00 Test Item Value Reference Range Comments PHOSPHORUS (BEAKER) (test vcvx=201) 2.9 mg/dL 2.3-4.7 [id number] 06:31:00 Test Item Value Reference Range Comments MAGNESIUM (BEAKER) (test qnyn=131) 1.9 mg/dL 1.6-2.6 COMPREHENSIVE METABOLIC [id number] 06:31:00 Test Item Value Reference Range Comments TOTAL PROTEIN (BEAKER) 5.8 gm/dL 6.0-8.3 (test rgos=705) ALBUMIN (BEAKER) (test 4.0 g/dL 3.5-5.0 czaq=7793) ALKALINE PHOSPHATASE 124 U/L 40-150 (BEAKER) (test nybz=767) BILIRUBIN TOTAL (BEAKER) 4.3 mg/dL 0.2-1.2 (test ifwx=161) SODIUM (BEAKER) (test 128 meq/L 136-145 vvpd=044) POTASSIUM (BEAKER) (test 3.9 meq/L 3.5-5.1 uhef=454) CHLORIDE (BEAKER) (test 92 meq/L 98-107 pfdw=132) CO2 (BEAKER) (test 26 meq/L 22-29 inxd=278) BLOOD UREA NITROGEN 21 mg/dL 7-21 (BEAKER) (test mbrl=223) CREATININE (BEAKER) (test 1.54 mg/dL 0.57-1.25 pbzg=179) GLUCOSE RANDOM (BEAKER) 113 mg/dL 70-105 (test tkue=888) CALCIUM (BEAKER) (test 9.5 mg/dL 8.4-10.2 jmtf=788) AST (SGOT) (BEAKER) (test 16 U/L 5-34 xclo=919) ALT (SGPT) (BEAKER) (test 6 U/L 6-55 brkw=609) EGFR (BEAKER) (test 48 mL/min/1.73 sq m ESTIMATED GFR IS NOT kryl=2293) ACCURATE CREATININE CLEARANCE IN PREDICTING GLOMERULAR FILTRATION RATE. ESTIMATED GFR IS NOT APPLICABLE FOR DIALYSIS PATIENTS. Specimen slightly ictericHEPATIC FUNCTION [id number] 06:31:00 Test Item Value Reference Range Comments TOTAL PROTEIN (BEAKER) (test bsag=610) 5.8 gm/dL 6.0-8.3 ALBUMIN (BEAKER) (test jlrl=1120) 4.0 g/dL 3.5-5.0 BILIRUBIN TOTAL (BEAKER) (test zfje=618) 4.3 mg/dL 0.2-1.2 BILIRUBIN DIRECT (BEAKER) (test txwu=722) 2.3 mg/dL 0.1-0.5 ALKALINE PHOSPHATASE (BEAKER) (test zsqx=018) 124 U/L 40-150 AST (SGOT) (BEAKER) (test qlvn=735) 16 U/L 5-34 ALT (SGPT) (BEAKER) (test qyqq=908) 6 U/L 6-55 Specimen slightly ictericPROTHROMBIN [id number] 06:16:00 Test Item Value Reference Range Comments PROTIME (BEAKER) (test dnyl=816) 22.3 seconds 11.7-14.7 INR (BEAKER) (test gnji=067) 2.0 <=5.9 RECOMMENDED COUMADIN/WARFARIN INR THERAPY RANGESSTANDARD DOSE: 2.0 - 3.0 Includes: PROPHYLAXIS forvenous thrombosis, systemic embolization; TREATMENT for venous thrombosis and/or pulmonary embolus.HIGH RISK: Target INR is 2.5-3.5 for patients with mechanical heart valves.CBC W/PLT COUNT & AUTO [id number] 06:00:00 Test Item Value Reference Range Comments WHITE BLOOD CELL COUNT (BEAKER) (test gfln=884) 4.3 K/ L 3.5-10.5 RED BLOOD CELL COUNT (BEAKER) (test jrec=616) 2.68 M/ L 4.63-6.08 HEMOGLOBIN (BEAKER) (test cfia=687) 8.3 GM/DL 13.7-17.5 HEMATOCRIT (BEAKER) (test pyec=415) 25.0 % 40.1-51.0 MEAN CORPUSCULAR VOLUME (BEAKER) (test bquq=566) 93.3 fL 79.0-92.2 MEAN CORPUSCULAR HEMOGLOBIN (BEAKER) (test 31.0 pg 25.7-32.2 spxr=578) MEAN CORPUSCULAR HEMOGLOBIN CONC (BEAKER) (test 33.2 GM/DL 32.3-36.5 koqx=323) RED CELL DISTRIBUTION WIDTH (BEAKER) (test 17.4 % 11.6-14.4 onev=584) PLATELET COUNT (BEAKER) (test abvq=967) 57 K/CU MM 150-450 MEAN PLATELET VOLUME (BEAKER) (test scwx=130) 9.3 fL 9.4-12.4 NUCLEATED RED BLOOD CELLS (BEAKER) (test 0 /100 WBC 0-0 lkng=400) NEUTROPHILS RELATIVE PERCENT (BEAKER) (test 61 % olqx=065) LYMPHOCYTES RELATIVE PERCENT (BEAKER) (test 14 % ndew=140) MONOCYTES RELATIVE PERCENT (BEAKER) (test 17 % zhth=491) EOSINOPHILS RELATIVE PERCENT (BEAKER) (test 7 % yqtb=627) BASOPHILS RELATIVE PERCENT (BEAKER) (test 1 % dymj=189) NEUTROPHILS ABSOLUTE COUNT (BEAKER) (test 2.62 K/ L 1.78-5.38 btox=365) LYMPHOCYTES ABSOLUTE COUNT (BEAKER) (test 0.59 K/ L 1.32-3.57 cvlp=577) MONOCYTES ABSOLUTE COUNT (BEAKER) (test rgwk=141) 0.73 K/ L 0.30-0.82 EOSINOPHILS ABSOLUTE COUNT (BEAKER) (test 0.29 K/ L 0.04-0.54 fdem=326) BASOPHILS ABSOLUTE COUNT (BEAKER) (test cgub=815) 0.02 K/ L 0.01-0.08 IMMATURE GRANULOCYTES-RELATIVE PERCENT (BEAKER) 1 % 0-1 (test nvva=9038) BLOOD [id number] 00:00:00 Test Item Value Reference Range Comments CULTURE (BEAKER) (test wkjf=0783) No growth in 5 days BLOOD [id number] 00:00:00 Test Item Value Reference Range Comments CULTURE (BEAKER) (test ilbq=3397) No growth in 5 days OSMOLALITY, [id number] 18:16:00 Test Item Value Reference Range Comments OSMOLALITY URINE (BEAKER) (test xbut=108) 312 mOsm/kg 40-1400 BODY FLUID CELL COUNT WITH [id number] 17:17:00 Test Item Value Reference Range Comments APPEARANCE FLUID (BEAKER) (test cotg=204) Clear Clear COLOR FLUID (BEAKER) (test nqsw=314) Yellow Colorless, Straw RBC FLUID (BEAKER) (test rhsg=688) 150 /cu mm <=1 ADJUSTED WBC FLUID (BEAKER) (test hjxn=2776) 72 /cu mm <=5 LINING CELLS (BEAKER) (test igvd=1170) 2 /cu mm <=1 NEUTROPHILS FLUID (BEAKER) (test dtmy=3503) 3 % LYMPHS FLUID (BEAKER) (test kmzt=152) 28 % MONO/MACROPHAGE FLUID (BEAKER) (test jmie=549) 68 % EOSINOPHILS FLUID (BEAKER) (test xjkz=672) 1 % BASO FLUID (BEAKER) (test tbng=725) 0 % CONTAINER BODY FLUID (BEAKER) (test vkwt=9438) EDTA Tube SODIUM, RANDOM [id number] 17:09:00 Test Item Value Reference Range Comments SODIUM URINE (BEAKER) (test vfte=898) < meq/L Reference Range: No NormalsURINALYSIS W/ [id number] 17:08:00 Test Item Value Reference Range Comments COLOR (BEAKER) (test ioqd=336) Yellow CLARITY (BEAKER) (test qfdl=535) Clear SPECIFIC GRAVITY UA (BEAKER) (test ciro=777) 1.012 1.001-1.035 PH UA (BEAKER) (test fmzx=063) 5.5 5.0-8.0 PROTEIN UA (BEAKER) (test jvay=577) Negative Negative GLUCOSE UA (BEAKER) (test qvpx=983) Negative Negative KETONES UA (BEAKER) (test tkow=909) Negative Negative BILIRUBIN UA (BEAKER) (test qbad=860) Negative Negative BLOOD UA (BEAKER) (test iuzq=573) Negative Negative NITRITE UA (BEAKER) (test paay=802) Negative Negative LEUKOCYTE ESTERASE UA (BEAKER) (test ftex=673) Negative Negative UROBILINOGEN UA (BEAKER) (test srmn=285) 2.0 mg/dL 0.2-1.0 RBC UA (BEAKER) (test aghh=708) 0 /HPF WBC UA (BEAKER) (test yrss=214) 1 /HPF MUCUS (BEAKER) (test oenm=9094) Rare HYALINE CASTS (BEAKER) (test xagw=932) 15 /LPF SOURCE(BEAKER) (test obwz=8121) CREATININE, RANDOM [id number] 17:05:00 Test Item Value Reference Range Comments CREATININE URINE (BEAKER) (test chju=441) 116.1 mg/dL Reference Range: No NormalsPROTEIN, RANDOM [id number] 17:05:00 Test Item Value Reference Range Comments PROTEIN, URINE (BEAKER) (test vuua=2566) 7 mg/dL 0-14 RAD, SPINE, THORACIC, 2 [id number] 13:53:00Reason for exam:->back pain, s/p kyphoplastyFINAL REPORT [...] disc space is relatively maintained. Signed: Aristeo XiongProxino Verified Date/Time: 13:53:06 Reading Location: [facility] Reading Room RAD, SPINE, LUMBAR, 2 OR 3 [id number] 13:53:00Reason for exam:->back pain, s/p kyphoplastyFINAL REPORT [...] space is relatively maintained. Signed: Aristeo Xiong [employer]stanProxino Verified Date/Time: 13:53:06 Reading Location: [facility] Mammo Reading Room U/S, [id number] 12:52:00Limit to 4L due to AKIReason for exam:-> ascitesShould this be performed at the bedside?->NoFINAL REPORT Ultrasound guided paracentesis, 05/11/2018. Clinical History: Ascites. Sedation: None. Special Duty Nurse: Elle. Flume Worker: None. Estimated Blood Loss: < 1 cc. [...] was achieved with 1% lidocaine, a 5 Maldivian one-step catheter was advanced into the peritoneal cavity under ultrasound guidance. After completion of drainage, the catheter was removed. There was no evidence of complication. Patient Disposition: The patient was discharged from the ultrasound department after the paracentesis, in good condition. Impression: Successful ultrasound guided paracentesis. Signed: Perlita AlmeidaReport Verified Date/Time: 05/11/2018 12:52:57 Reading Location: [address] Ultrasound Reading Room MISCELLANEOUS LAB [id number] 10:45:00 Test Item Value Reference Range Comments SCAN RESULT (test [id number]=[id number]) [id number] 07:31:00 Test Item Value Reference Range Comments PHOSPHORUS (BEAKER) (test ngkf=650) 2.7 mg/dL 2.3-4.7 [id number] 07:31:00 Test Item Value Reference Range Comments MAGNESIUM (BEAKER) (test pdnc=063) 1.8 mg/dL 1.6-2.6 COMPREHENSIVE METABOLIC [id number] 07:31:00 Test Item Value Reference Range Comments TOTAL PROTEIN (BEAKER) 5.5 gm/dL 6.0-8.3 (test iize=306) ALBUMIN (BEAKER) (test 3.5 g/dL 3.5-5.0 ptez=7534) ALKALINE PHOSPHATASE 118 U/L 40-150 (BEAKER) (test wcmy=781) BILIRUBIN TOTAL (BEAKER) 5.1 mg/dL 0.2-1.2 (test bffi=858) SODIUM (BEAKER) (test 123 meq/L 136-145 arzq=449) POTASSIUM (BEAKER) (test 4.1 meq/L 3.5-5.1 yerr=880) CHLORIDE (BEAKER) (test 91 meq/L 98-107 tyyv=325) CO2 (BEAKER) (test 25 meq/L 22-29 cnuy=620) BLOOD UREA NITROGEN 21 mg/dL 7-21 (BEAKER) (test gzus=782) CREATININE (BEAKER) (test 1.59 mg/dL 0.57-1.25 fbbf=078) GLUCOSE RANDOM (BEAKER) 121 mg/dL 70-105 (test zjfc=154) CALCIUM (BEAKER) (test 9.4 mg/dL 8.4-10.2 wafw=750) AST (SGOT) (BEAKER) (test 17 U/L 5-34 sxzy=813) ALT (SGPT) (BEAKER) (test 8 U/L 6-55 sert=635) EGFR (BEAKER) (test 46 mL/min/1.73 sq m ESTIMATED GFR IS NOT myxz=8053) ACCURATE CREATININE CLEARANCE IN PREDICTING GLOMERULAR FILTRATION RATE. ESTIMATED GFR IS NOT APPLICABLE FOR DIALYSIS PATIENTS. Specimen moderately ictericHEPATIC FUNCTION [id number] 07:31:00 Test Item Value Reference Range Comments TOTAL PROTEIN (BEAKER) (test ctdj=651) 5.5 gm/dL 6.0-8.3 ALBUMIN (BEAKER) (test sirs=1478) 3.5 g/dL 3.5-5.0 BILIRUBIN TOTAL (BEAKER) (test heoy=564) 5.1 mg/dL 0.2-1.2 BILIRUBIN DIRECT (BEAKER) (test sqbb=361) 2.3 mg/dL 0.1-0.5 ALKALINE PHOSPHATASE (BEAKER) (test nghc=456) 118 U/L 40-150 AST (SGOT) (BEAKER) (test uteq=200) 17 U/L 5-34 ALT (SGPT) (BEAKER) (test tzwp=119) 8 U/L 6-55 Specimen moderately ictericPROTHROMBIN [id number] 07:17:00 Test Item Value Reference Range Comments PROTIME (BEAKER) (test eswy=079) 23.8 seconds 11.7-14.7 INR (BEAKER) (test ttug=363) 2.1 <=5.9 RECOMMENDED COUMADIN/WARFARIN INR THERAPY RANGESSTANDARD DOSE: 2.0 - 3.0 Includes: PROPHYLAXIS forvenous thrombosis, systemic embolization; TREATMENT for venous thrombosis and/or pulmonary embolus.HIGH RISK: Target INR is 2.5-3.5 for patients with mechanical heart valves.CBC W/PLT COUNT & AUTO [id number] 07:15:00 Test Item Value Reference Range Comments WHITE BLOOD CELL COUNT (BEAKER) (test vowx=479) 4.4 K/ L 3.5-10.5 RED BLOOD CELL COUNT (BEAKER) (test yeed=091) 2.52 M/ L 4.63-6.08 HEMOGLOBIN (BEAKER) (test fhke=114) 7.9 GM/DL 13.7-17.5 HEMATOCRIT (BEAKER) (test qqsm=133) 23.7 % 40.1-51.0 MEAN CORPUSCULAR VOLUME (BEAKER) (test ryeu=355) 94.0 fL 79.0-92.2 MEAN CORPUSCULAR HEMOGLOBIN (BEAKER) (test 31.3 pg 25.7-32.2 qapz=551) MEAN CORPUSCULAR HEMOGLOBIN CONC (BEAKER) (test 33.3 GM/DL 32.3-36.5 ugea=583) RED CELL DISTRIBUTION WIDTH (BEAKER) (test 17.6 % 11.6-14.4 ourh=097) PLATELET COUNT (BEAKER) (test quyc=017) 52 K/CU MM 150-450 MEAN PLATELET VOLUME (BEAKER) (test qkih=990) 9.2 fL 9.4-12.4 NUCLEATED RED BLOOD CELLS (BEAKER) (test 0 /100 WBC 0-0 jsmy=860) NEUTROPHILS RELATIVE PERCENT (BEAKER) (test 62 % gskp=068) LYMPHOCYTES RELATIVE PERCENT (BEAKER) (test 10 % sczl=224) MONOCYTES RELATIVE PERCENT (BEAKER) (test 19 % nxdx=631) EOSINOPHILS RELATIVE PERCENT (BEAKER) (test 8 % lzha=084) BASOPHILS RELATIVE PERCENT (BEAKER) (test 0 % brcs=764) NEUTROPHILS ABSOLUTE COUNT (BEAKER) (test 2.72 K/ L 1.78-5.38 fupu=863) LYMPHOCYTES ABSOLUTE COUNT (BEAKER) (test 0.42 K/ L 1.32-3.57 evqy=606) MONOCYTES ABSOLUTE COUNT (BEAKER) (test qzne=600) 0.84 K/ L 0.30-0.82 EOSINOPHILS ABSOLUTE COUNT (BEAKER) (test 0.34 K/ L 0.04-0.54 diae=325) BASOPHILS ABSOLUTE COUNT (BEAKER) (test oert=789) 0.00 K/ L 0.01-0.08 IMMATURE GRANULOCYTES-RELATIVE PERCENT (BEAKER) 1 % 0-1 (test kmgu=9554) CALCIUM, [id number] 07:09:00 Test Item Value Reference Range Comments CALCIUM IONIZED (BEAKER) (test gfbe=741) 1.09 mmol/L 1.12-1.27 PH, BLOOD (BEAKER) (test ipoo=4708) 7.36 BASIC METABOLIC [id number] 17:49:00 Test Item Value Reference Range Comments SODIUM (BEAKER) (test 124 meq/L 136-145 dpon=445) POTASSIUM (BEAKER) (test 3.8 meq/L 3.5-5.1 qdqv=903) CHLORIDE (BEAKER) (test 91 meq/L 98-107 qcpt=601) CO2 (BEAKER) (test 22 meq/L 22-29 yusm=254) BLOOD UREA NITROGEN 19 mg/dL 7-21 (BEAKER) (test fprs=042) CREATININE (BEAKER) (test 1.49 mg/dL 0.57-1.25 blwq=627) GLUCOSE RANDOM (BEAKER) 105 mg/dL 70-105 (test lqag=156) CALCIUM (BEAKER) (test 9.3 mg/dL 8.4-10.2 wasr=330) EGFR (BEAKER) (test 50 mL/min/1.73 sq m ESTIMATED GFR IS NOT nndo=4273) ACCURATE CREATININE CLEARANCE IN PREDICTING GLOMERULAR FILTRATION RATE. ESTIMATED GFR IS NOT APPLICABLE FOR DIALYSIS PATIENTS. Call [id number] slightly ictericCALCIUM, [id number] 06:59:00 Test Item Value Reference Range Comments CALCIUM IONIZED (BEAKER) (test xopy=506) 1.00 mmol/L 1.12-1.27 PH, BLOOD (BEAKER) (test ixtl=1487) 7.47 [id number] 05:42:00 Test Item Value Reference Range Comments PHOSPHORUS (BEAKER) (test xjxr=635) 2.7 mg/dL 2.3-4.7 [id number] 05:42:00 Test Item Value Reference Range Comments MAGNESIUM (BEAKER) (test ffme=422) 1.7 mg/dL 1.6-2.6 HEPATIC FUNCTION [id number] 05:42:00 Test Item Value Reference Range Comments TOTAL PROTEIN (BEAKER) (test rzef=895) 5.2 gm/dL 6.0-8.3 ALBUMIN (BEAKER) (test qmrk=0628) 3.5 g/dL 3.5-5.0 BILIRUBIN TOTAL (BEAKER) (test ylun=248) 3.4 mg/dL 0.2-1.2 BILIRUBIN DIRECT (BEAKER) (test oirr=276) 1.8 mg/dL 0.1-0.5 ALKALINE PHOSPHATASE (BEAKER) (test yqel=194) 106 U/L 40-150 AST (SGOT) (BEAKER) (test inxs=618) 15 U/L 5-34 ALT (SGPT) (BEAKER) (test qkiw=176) 7 U/L 6-55 Specimen slightly ictericPROTHROMBIN [id number] 05:22:00 Test Item Value Reference Range Comments PROTIME (BEAKER) (test bntp=659) 22.6 seconds 11.7-14.7 INR (BEAKER) (test sfea=787) 2.0 <=5.9 RECOMMENDED COUMADIN/WARFARIN INR THERAPY RANGESSTANDARD DOSE: 2.0 - 3.0 Includes: PROPHYLAXIS forvenous thrombosis, systemic embolization; TREATMENT for venous thrombosis and/or pulmonary embolus.HIGH RISK: Target INR is 2.5-3.5 for patients with mechanical heart valves.CBC W/PLT COUNT & AUTO [id number] 05:10:00 Test Item Value Reference Range Comments WHITE BLOOD CELL COUNT (BEAKER) (test pwjx=460) 5.6 K/ L 3.5-10.5 RED BLOOD CELL COUNT (BEAKER) (test zeco=056) 2.09 M/ L 4.63-6.08 HEMOGLOBIN (BEAKER) (test myfe=119) 6.5 GM/DL 13.7-17.5 HEMATOCRIT (BEAKER) (test zzya=767) 19.8 % 40.1-51.0 MEAN CORPUSCULAR VOLUME (BEAKER) (test jnyv=411) 94.7 fL 79.0-92.2 MEAN CORPUSCULAR HEMOGLOBIN (BEAKER) (test 31.1 pg 25.7-32.2 kszb=280) MEAN CORPUSCULAR HEMOGLOBIN CONC (BEAKER) (test 32.8 GM/DL 32.3-36.5 ypyu=668) RED CELL DISTRIBUTION WIDTH (BEAKER) (test 17.3 % 11.6-14.4 lzhu=748) PLATELET COUNT (BEAKER) (test hslh=008) 57 K/CU MM 150-450 MEAN PLATELET VOLUME (BEAKER) (test xldl=848) 8.9 fL 9.4-12.4 NUCLEATED RED BLOOD CELLS (BEAKER) (test 0 /100 WBC 0-0 kkes=877) NEUTROPHILS RELATIVE PERCENT (BEAKER) (test 71 % xabf=799) LYMPHOCYTES RELATIVE PERCENT (BEAKER) (test 9 % jkpn=354) MONOCYTES RELATIVE PERCENT (BEAKER) (test 16 % xkav=779) EOSINOPHILS RELATIVE PERCENT (BEAKER) (test 3 % gppn=210) BASOPHILS RELATIVE PERCENT (BEAKER) (test 0 % cyqx=830) NEUTROPHILS ABSOLUTE COUNT (BEAKER) (test 3.93 K/ L 1.78-5.38 pxhs=296) LYMPHOCYTES ABSOLUTE COUNT (BEAKER) (test 0.52 K/ L 1.32-3.57 ytrn=825) MONOCYTES ABSOLUTE COUNT (BEAKER) (test ebkw=353) 0.87 K/ L 0.30-0.82 EOSINOPHILS ABSOLUTE COUNT (BEAKER) (test 0.19 K/ L 0.04-0.54 mpno=629) BASOPHILS ABSOLUTE COUNT (BEAKER) (test ifmr=283) 0.01 K/ L 0.01-0.08 IMMATURE GRANULOCYTES-RELATIVE PERCENT (BEAKER) 1 % 0-1 (test vzqf=9794) HEPATIC FUNCTION [id number] 11:05:00 Test Item Value Reference Range Comments TOTAL PROTEIN (BEAKER) (test woso=096) 5.7 gm/dL 6.0-8.3 ALBUMIN (BEAKER) (test zmws=9335) 3.9 g/dL 3.5-5.0 BILIRUBIN TOTAL (BEAKER) (test rqrn=719) 4.9 mg/dL 0.2-1.2 BILIRUBIN DIRECT (BEAKER) (test cnwx=683) 2.0 mg/dL 0.1-0.5 ALKALINE PHOSPHATASE (BEAKER) (test wbvp=067) 98 U/L 40-150 AST (SGOT) (BEAKER) (test qnzs=238) 19 U/L 5-34 ALT (SGPT) (BEAKER) (test zjtw=706) 8 U/L 6-55 Specimen moderately ictericBASIC METABOLIC [id number] 10:06:00 Test Item Value Reference Range Comments SODIUM (BEAKER) (test 132 meq/L 136-145 eyad=425) POTASSIUM (BEAKER) (test 5.0 meq/L 3.5-5.1 daic=614) CHLORIDE (BEAKER) (test 97 meq/L 98-107 tfwb=123) CO2 (BEAKER) (test 25 meq/L 22-29 barw=159) BLOOD UREA NITROGEN 17 mg/dL 7-21 (BEAKER) (test ktwn=281) CREATININE (BEAKER) (test 1.33 mg/dL 0.57-1.25 hqzs=170) GLUCOSE RANDOM (BEAKER) 181 mg/dL 70-105 (test jrnk=790) CALCIUM (BEAKER) (test 9.4 mg/dL 8.4-10.2 ldwo=224) EGFR (BEAKER) (test 56 mL/min/1.73 sq m ESTIMATED GFR IS NOT pful=7576) ACCURATE CREATININE CLEARANCE IN PREDICTING GLOMERULAR FILTRATION RATE. ESTIMATED GFR IS NOT APPLICABLE FOR DIALYSIS PATIENTS. Specimen moderately ictericCBC W/PLT COUNT & AUTO [id number] 07: 45:00 Test Item Value Reference Range Comments WHITE BLOOD CELL COUNT (BEAKER) (test yais=166) 3.4 K/ L 3.5-10.5 RED BLOOD CELL COUNT (BEAKER) (test psip=980) 2.26 M/ L 4.63-6.08 HEMOGLOBIN (BEAKER) (test klbv=138) 7.0 GM/DL 13.7-17.5 HEMATOCRIT (BEAKER) (test giqo=099) 21.6 % 40.1-51.0 MEAN CORPUSCULAR VOLUME (BEAKER) (test hpyr=018) 95.6 fL 79.0-92.2 MEAN CORPUSCULAR HEMOGLOBIN (BEAKER) (test 31.0 pg 25.7-32.2 vdze=482) MEAN CORPUSCULAR HEMOGLOBIN CONC (BEAKER) (test 32.4 GM/DL 32.3-36.5 wxbz=203) RED CELL DISTRIBUTION WIDTH (BEAKER) (test 17.3 % 11.6-14.4 lqmb=339) PLATELET COUNT (BEAKER) (test rdfz=345) 66 K/CU MM 150-450 MEAN PLATELET VOLUME (BEAKER) (test iqga=435) 9.8 fL 9.4-12.4 NUCLEATED RED BLOOD CELLS (BEAKER) (test 0 /100 WBC 0-0 quwz=715) NEUTROPHILS RELATIVE PERCENT (BEAKER) (test 87 % nlah=085) LYMPHOCYTES RELATIVE PERCENT (BEAKER) (test 7 % ifcv=170) MONOCYTES RELATIVE PERCENT (BEAKER) (test 5 % jehp=586) EOSINOPHILS RELATIVE PERCENT (BEAKER) (test 0 % bzvu=910) BASOPHILS RELATIVE PERCENT (BEAKER) (test 0 % urfj=729) NEUTROPHILS ABSOLUTE COUNT (BEAKER) (test 2.94 K/ L 1.78-5.38 bqvr=026) LYMPHOCYTES ABSOLUTE COUNT (BEAKER) (test 0.23 K/ L 1.32-3.57 zvjf=412) MONOCYTES ABSOLUTE COUNT (BEAKER) (test fiuj=669) 0.17 K/ L 0.30-0.82 EOSINOPHILS ABSOLUTE COUNT (BEAKER) (test 0.00 K/ L 0.04-0.54 nwuv=698) BASOPHILS ABSOLUTE COUNT (BEAKER) (test bftp=307) 0.00 K/ L 0.01-0.08 IMMATURE GRANULOCYTES-RELATIVE PERCENT (BEAKER) 1 % 0-1 (test tzau=8954) PROTHROMBIN [id number] 06:06:00 Test Item Value Reference Range Comments PROTIME (BEAKER) (test ghki=636) 19.1 seconds 11.7-14.7 INR (BEAKER) (test alib=435) 1.6 <=5.9 RECOMMENDED COUMADIN/WARFARIN INR THERAPY RANGESSTANDARD DOSE: 2.0 - 3.0 Includes: PROPHYLAXIS forvenous thrombosis, systemic embolization; TREATMENT for venous thrombosis and/or pulmonary embolus.HIGH RISK: Target INR is 2.5-3.5 for patients with mechanical heart valves.[id number] 15:35:00 Test Item Value Reference Range Comments PROTIME (BEAKER) (test lxfo=070) 20.3 seconds 11.7-14.7 INR (BEAKER) (test imew=169) 1.7 <=5.9 PARTIAL THROMBOPLASTIN TIME (BEAKER) (test 46.2 seconds 22.5-36.0 yzdy=644) RECOMMENDED COUMADIN/WARFARIN INR THERAPY RANGESSTANDARD DOSE: 2.0 - 3.0 Includes: PROPHYLAXIS forvenous thrombosis, systemic embolization; TREATMENT for venous thrombosis and/or pulmonary embolus.HIGH RISK: Target INR is 2.5-3.5 for patients with mechanical heart valves.30 minutes after administration of Uokrutm62 minutes after administration of KcentraPROTHROMBIN [id number] 15:33:00 Test Item Value Reference Range Comments PROTIME (BEAKER) (test dirz=451) 20.1 seconds 11.7-14.7 INR (BEAKER) (test yblc=729) 1.7 <=5.9 RECOMMENDED COUMADIN/WARFARIN INR THERAPY RANGESSTANDARD DOSE: 2.0 - 3.0 Includes: PROPHYLAXIS forvenous thrombosis, systemic embolization; TREATMENT for venous thrombosis and/or pulmonary embolus.HIGH RISK: Target INR is 2.5-3.5 for patients with mechanical heart valves.Please draw 30 mins after Kcentra doseBODY FLUID CULTURE + GRAM [id number] 11:29:00 Test Item Value Reference Range Comments CULTURE (BEAKER) (test lrod=1688) No growth GRAM STAIN RESULT (BEAKER) (test <1+ WBCs fdro=7788) GRAM STAIN RESULT (BEAKER) (test No organisms seen mxbv=69782) CT, [id number] 10:30:00FINAL REPORT HISTORY : r/o intra abdominal [...] MDReport Verified Date/Time: 05/08/2018 10:30:57 Reading Location: [facility] Diagnostic Imaging Reading Room - [place] [id number] 112 CBC W/PLT COUNT & AUTO [id number] 07:27:00 Test Item Value Reference Range Comments WHITE BLOOD CELL COUNT (BEAKER) (test ceft=171) 3.1 K/ L 3.5-10.5 RED BLOOD CELL COUNT (BEAKER) (test rwob=545) 2.27 M/ L 4.63-6.08 HEMOGLOBIN (BEAKER) (test wzsm=917) 7.1 GM/DL 13.7-17.5 HEMATOCRIT (BEAKER) (test eord=021) 21.4 % 40.1-51.0 MEAN CORPUSCULAR VOLUME (BEAKER) (test vtpt=385) 94.3 fL 79.0-92.2 MEAN CORPUSCULAR HEMOGLOBIN (BEAKER) (test 31.3 pg 25.7-32.2 ndle=783) MEAN CORPUSCULAR HEMOGLOBIN CONC (BEAKER) (test 33.2 GM/DL 32.3-36.5 kjzm=346) RED CELL DISTRIBUTION WIDTH (BEAKER) (test 17.5 % 11.6-14.4 iidq=221) PLATELET COUNT (BEAKER) (test kiuu=215) 43 K/CU MM 150-450 MEAN PLATELET VOLUME (BEAKER) (test bemq=565) 8.7 fL 9.4-12.4 NUCLEATED RED BLOOD CELLS (BEAKER) (test 0 /100 WBC 0-0 fuvn=720) NEUTROPHILS RELATIVE PERCENT (BEAKER) (test 60 % texz=486) LYMPHOCYTES RELATIVE PERCENT (BEAKER) (test 16 % yets=165) MONOCYTES RELATIVE PERCENT (BEAKER) (test 17 % tqmv=107) EOSINOPHILS RELATIVE PERCENT (BEAKER) (test 7 % nlyy=443) BASOPHILS RELATIVE PERCENT (BEAKER) (test 0 % zrhw=547) NEUTROPHILS ABSOLUTE COUNT (BEAKER) (test 1.85 K/ L 1.78-5.38 rrli=575) LYMPHOCYTES ABSOLUTE COUNT (BEAKER) (test 0.48 K/ L 1.32-3.57 qbqh=609) MONOCYTES ABSOLUTE COUNT (BEAKER) (test bcbf=968) 0.54 K/ L 0.30-0.82 EOSINOPHILS ABSOLUTE COUNT (BEAKER) (test 0.22 K/ L 0.04-0.54 ybeb=644) BASOPHILS ABSOLUTE COUNT (BEAKER) (test orsd=639) 0.00 K/ L 0.01-0.08 IMMATURE GRANULOCYTES-RELATIVE PERCENT (BEAKER) 0 % 0-1 (test yxcw=1234) CBC W/PLT COUNT & AUTO [id number] 07:26:00 Test Item Value Reference Range Comments WHITE BLOOD CELL COUNT (BEAKER) (test dzxh=229) 2.9 K/ L 3.5-10.5 RED BLOOD CELL COUNT (BEAKER) (test wrul=729) 2.25 M/ L 4.63-6.08 HEMOGLOBIN (BEAKER) (test ipuq=163) 7.1 GM/DL 13.7-17.5 HEMATOCRIT (BEAKER) (test iyvx=224) 21.4 % 40.1-51.0 MEAN CORPUSCULAR VOLUME (BEAKER) (test hbji=408) 95.1 fL 79.0-92.2 MEAN CORPUSCULAR HEMOGLOBIN (BEAKER) (test 31.6 pg 25.7-32.2 kapd=604) MEAN CORPUSCULAR HEMOGLOBIN CONC (BEAKER) (test 33.2 GM/DL 32.3-36.5 kzvv=479) RED CELL DISTRIBUTION WIDTH (BEAKER) (test 17.5 % 11.6-14.4 hief=783) PLATELET COUNT (BEAKER) (test zdwk=703) 44 K/CU MM 150-450 MEAN PLATELET VOLUME (BEAKER) (test vvoi=999) 9.3 fL 9.4-12.4 NUCLEATED RED BLOOD CELLS (BEAKER) (test 0 /100 WBC 0-0 enpu=970) NEUTROPHILS RELATIVE PERCENT (BEAKER) (test 59 % qodj=597) LYMPHOCYTES RELATIVE PERCENT (BEAKER) (test 16 % fcou=394) MONOCYTES RELATIVE PERCENT (BEAKER) (test 17 % wzgf=512) EOSINOPHILS RELATIVE PERCENT (BEAKER) (test 7 % ivpz=194) BASOPHILS RELATIVE PERCENT (BEAKER) (test 0 % srlu=993) NEUTROPHILS ABSOLUTE COUNT (BEAKER) (test 1.72 K/ L 1.78-5.38 cvci=091) LYMPHOCYTES ABSOLUTE COUNT (BEAKER) (test 0.46 K/ L 1.32-3.57 ymwt=554) MONOCYTES ABSOLUTE COUNT (BEAKER) (test vhuq=613) 0.51 K/ L 0.30-0.82 EOSINOPHILS ABSOLUTE COUNT (BEAKER) (test 0.21 K/ L 0.04-0.54 lhhm=993) BASOPHILS ABSOLUTE COUNT (BEAKER) (test fphm=528) 0.01 K/ L 0.01-0.08 IMMATURE GRANULOCYTES-RELATIVE PERCENT (BEAKER) 1 % 0-1 (test dxdp=4422) BASIC METABOLIC [id number] 07:00:00 Test Item Value Reference Range Comments SODIUM (BEAKER) (test 130 meq/L 136-145 tpft=438) POTASSIUM (BEAKER) (test 3.6 meq/L 3.5-5.1 khax=387) CHLORIDE (BEAKER) (test 94 meq/L 98-107 yluh=948) CO2 (BEAKER) (test 27 meq/L 22-29 vfww=000) BLOOD UREA NITROGEN 19 mg/dL 7-21 (BEAKER) (test sall=405) CREATININE (BEAKER) (test 1.40 mg/dL 0.57-1.25 ouzr=207) GLUCOSE RANDOM (BEAKER) 111 mg/dL 70-105 (test fjqq=086) CALCIUM (BEAKER) (test 9.2 mg/dL 8.4-10.2 yrkn=317) EGFR (BEAKER) (test 53 mL/min/1.73 sq m ESTIMATED GFR IS NOT qxug=7032) ACCURATE CREATININE CLEARANCE IN PREDICTING GLOMERULAR FILTRATION RATE. ESTIMATED GFR IS NOT APPLICABLE FOR DIALYSIS PATIENTS. Specimen moderately ictericCOMPREHENSIVE METABOLIC [id number] 07:00:00 Test Item Value Reference Range Comments TOTAL PROTEIN (BEAKER) 5.7 gm/dL 6.0-8.3 (test gknd=348) ALBUMIN (BEAKER) (test 4.0 g/dL 3.5-5.0 jwld=8390) ALKALINE PHOSPHATASE 92 U/L 40-150 (BEAKER) (test llcb=332) BILIRUBIN TOTAL (BEAKER) 4.6 mg/dL 0.2-1.2 (test cuok=868) SODIUM (BEAKER) (test 130 meq/L 136-145 lyll=108) POTASSIUM (BEAKER) (test 3.6 meq/L 3.5-5.1 yhsc=652) CHLORIDE (BEAKER) (test 94 meq/L 98-107 wfmg=885) CO2 (BEAKER) (test 27 meq/L 22-29 uadz=765) BLOOD UREA NITROGEN 19 mg/dL 7-21 (BEAKER) (test nduq=145) CREATININE (BEAKER) (test 1.40 mg/dL 0.57-1.25 gyvq=222) GLUCOSE RANDOM (BEAKER) 111 mg/dL 70-105 (test hplg=549) CALCIUM (BEAKER) (test 9.2 mg/dL 8.4-10.2 yqyv=789) AST (SGOT) (BEAKER) (test 16 U/L 5-34 vrlc=313) ALT (SGPT) (BEAKER) (test 6 U/L 6-55 blbs=437) EGFR (BEAKER) (test 53 mL/min/1.73 sq m ESTIMATED GFR IS NOT ubfo=0889) ACCURATE CREATININE CLEARANCE IN PREDICTING GLOMERULAR FILTRATION RATE. ESTIMATED GFR IS NOT APPLICABLE FOR DIALYSIS PATIENTS. Specimen moderately ictericHEPATIC FUNCTION [id number] 07:00:00 Test Item Value Reference Range Comments TOTAL PROTEIN (BEAKER) (test zgam=361) 5.7 gm/dL 6.0-8.3 ALBUMIN (BEAKER) (test ymag=7612) 4.0 g/dL 3.5-5.0 BILIRUBIN TOTAL (BEAKER) (test dzns=789) 4.6 mg/dL 0.2-1.2 BILIRUBIN DIRECT (BEAKER) (test swtf=628) 1.8 mg/dL 0.1-0.5 ALKALINE PHOSPHATASE (BEAKER) (test oxvb=208) 92 U/L 40-150 AST (SGOT) (BEAKER) (test cole=881) 16 U/L 5-34 ALT (SGPT) (BEAKER) (test fbbr=709) 6 U/L 6-55 Specimen moderately [id number] 06:57:00 Test Item Value Reference Range Comments PARTIAL THROMBOPLASTIN TIME (BEAKER) (test 47.9 seconds 22.5-36.0 mbwq=851) PROTHROMBIN [id number] 06:55:00 Test Item Value Reference Range Comments PROTIME (BEAKER) (test wyvq=177) 23.7 seconds 11.7-14.7 INR (BEAKER) (test yken=783) 2.1 <=5.9 RECOMMENDED COUMADIN/WARFARIN INR THERAPY RANGESSTANDARD DOSE: 2.0 - 3.0 Includes: PROPHYLAXIS forvenous thrombosis, systemic embolization; TREATMENT for venous thrombosis and/or pulmonary embolus.HIGH RISK: Target INR is 2.5-3.5 for patients with mechanical heart valves.MR, SPINE, LUMBAR, WITHOUT [id number] 16:57:00FINAL REPORT MRI lumbar spine without contrast [...] Bain Verified Date/Time: 05/07/2018 16:57:00 Reading Location: [facility] Radiology Reading Room LACTIC ACID, VENOUS, WHOLE [id number] 14:13:00 Test Item Value Reference Range Comments LACTATE BLOOD VENOUS (2) (BEAKER) (test 2.6 mmol/L 0.5-2.2 yvek=0284) Effective 02/28/2016: Units/Reference Range ChangeNew: 0.5-2.2 mmol/L Previous: 5 -20 mg/dLSpecimen slightly ictericHEMOGLOBIN AND [id number] 13:51:00 Test Item Value Reference Range Comments HEMOGLOBIN (BEAKER) (test hrje=856) 7.1 GM/DL 13.7-17.5 HEMATOCRIT (BEAKER) (test kbvh=306) 21.7 % 40.1-51.0 U/S, RENAL, [id number] 09:48:00Reason for exam:->AKIFINAL REPORT Renal ultrasound Clinical [...] MDReport Verified Date/Time: 05/07/2018 09:48:55 Reading Location: [address] Ultrasound Reading Room Electronically signed by: REECE HAQUE MD on 09:[id number] 09:04:00 Test Item Value Reference Range Comments MAGNESIUM (BEAKER) (test ovgq=681) 2.0 mg/dL 1.6-2.6 COMPREHENSIVE METABOLIC [id number] 09:04:00 Test Item Value Reference Range Comments TOTAL PROTEIN (BEAKER) 5.2 gm/dL 6.0-8.3 (test wpqp=995) ALBUMIN (BEAKER) (test 3.5 g/dL 3.5-5.0 zbei=6747) ALKALINE PHOSPHATASE 96 U/L 40-150 (BEAKER) (test horu=316) BILIRUBIN TOTAL (BEAKER) 4.1 mg/dL 0.2-1.2 (test uewj=299) SODIUM (BEAKER) (test 129 meq/L 136-145 lhio=418) POTASSIUM (BEAKER) (test 3.8 meq/L 3.5-5.1 ryoz=348) CHLORIDE (BEAKER) (test 96 meq/L 98-107 khzb=037) CO2 (BEAKER) (test 25 meq/L 22-29 fqjl=802) BLOOD UREA NITROGEN 22 mg/dL 7-21 (BEAKER) (test jxno=990) CREATININE (BEAKER) (test 1.57 mg/dL 0.57-1.25 diae=641) GLUCOSE RANDOM (BEAKER) 122 mg/dL 70-105 (test ilgw=652) CALCIUM (BEAKER) (test 8.9 mg/dL 8.4-10.2 xbde=647) AST (SGOT) (BEAKER) (test 15 U/L 5-34 rask=320) ALT (SGPT) (BEAKER) (test 7 U/L 6-55 mnex=717) EGFR (BEAKER) (test 47 mL/min/1.73 sq m ESTIMATED GFR IS NOT mxxh=8714) ACCURATE CREATININE CLEARANCE IN PREDICTING GLOMERULAR FILTRATION RATE. ESTIMATED GFR IS NOT APPLICABLE FOR DIALYSIS PATIENTS. Specimen moderately ictericHEPATIC FUNCTION [id number] 09:04:00 Test Item Value Reference Range Comments TOTAL PROTEIN (BEAKER) (test ftop=076) 5.2 gm/dL 6.0-8.3 ALBUMIN (BEAKER) (test tsrb=6997) 3.5 g/dL 3.5-5.0 BILIRUBIN TOTAL (BEAKER) (test ykkf=407) 4.1 mg/dL 0.2-1.2 BILIRUBIN DIRECT (BEAKER) (test zhjx=508) 1.8 mg/dL 0.1-0.5 ALKALINE PHOSPHATASE (BEAKER) (test eesy=154) 96 U/L 40-150 AST (SGOT) (BEAKER) (test bwod=644) 15 U/L 5-34 ALT (SGPT) (BEAKER) (test epkp=048) 7 U/L 6-55 Specimen moderately ictericCBC W/PLT COUNT & AUTO [id number] 08: 26:00 Test Item Value Reference Range Comments WHITE BLOOD CELL COUNT (BEAKER) (test dcbk=936) 2.7 K/ L 3.5-10.5 RED BLOOD CELL COUNT (BEAKER) (test rrih=638) 2.13 M/ L 4.63-6.08 HEMOGLOBIN (BEAKER) (test nwma=543) 6.8 GM/DL 13.7-17.5 HEMATOCRIT (BEAKER) (test nndt=764) 19.5 % 40.1-51.0 MEAN CORPUSCULAR VOLUME (BEAKER) (test fxgi=809) 91.5 fL 79.0-92.2 MEAN CORPUSCULAR HEMOGLOBIN (BEAKER) (test 31.9 pg 25.7-32.2 isqw=561) MEAN CORPUSCULAR HEMOGLOBIN CONC (BEAKER) (test 34.9 GM/DL 32.3-36.5 yqbv=476) RED CELL DISTRIBUTION WIDTH (BEAKER) (test 17.5 % 11.6-14.4 vgdj=731) PLATELET COUNT (BEAKER) (test ywyr=215) 52 K/CU MM 150-450 MEAN PLATELET VOLUME (BEAKER) (test muef=995) 9.1 fL 9.4-12.4 NUCLEATED RED BLOOD CELLS (BEAKER) (test 0 /100 WBC 0-0 jtff=957) NEUTROPHILS RELATIVE PERCENT (BEAKER) (test 62 % egcg=081) LYMPHOCYTES RELATIVE PERCENT (BEAKER) (test 16 % bxhq=018) MONOCYTES RELATIVE PERCENT (BEAKER) (test 17 % rtdu=313) EOSINOPHILS RELATIVE PERCENT (BEAKER) (test 4 % uazh=129) BASOPHILS RELATIVE PERCENT (BEAKER) (test 0 % lbsg=805) NEUTROPHILS ABSOLUTE COUNT (BEAKER) (test 1.66 K/ L 1.78-5.38 vjjn=779) LYMPHOCYTES ABSOLUTE COUNT (BEAKER) (test 0.43 K/ L 1.32-3.57 czlx=312) MONOCYTES ABSOLUTE COUNT (BEAKER) (test wqql=015) 0.44 K/ L 0.30-0.82 EOSINOPHILS ABSOLUTE COUNT (BEAKER) (test 0.11 K/ L 0.04-0.54 hcpa=929) BASOPHILS ABSOLUTE COUNT (BEAKER) (test lhux=261) 0.00 K/ L 0.01-0.08 IMMATURE GRANULOCYTES-RELATIVE PERCENT (BEAKER) 1 % 0-1 (test ybka=9336) PROTHROMBIN [id number] 08:08:00 Test Item Value Reference Range Comments PROTIME (BEAKER) (test zkyu=803) 28.3 seconds 11.7-14.7 INR (BEAKER) (test uhrt=974) 2.7 <=5.9 RECOMMENDED COUMADIN/WARFARIN INR THERAPY RANGESSTANDARD DOSE: 2.0 - 3.0 Includes: PROPHYLAXIS forvenous thrombosis, systemic embolization; TREATMENT for venous thrombosis and/or pulmonary embolus.HIGH RISK: Target INR is 2.5-3.5 for patients with mechanical heart valves.[id number] 19:47:00 Test Item Value Reference Range Comments SODIUM (BEAKER) (test pggb=186) 129 meq/L 136-145 POTASSIUM (BEAKER) (test hwdh=473) 4.6 meq/L 3.5-5.1 CHLORIDE (BEAKER) (test ezqo=757) 96 meq/L 98-107 CO2 (BEAKER) (test bgnt=698) 22 meq/L 22-29 Call [id number] AND [id number] 19:27:00 Test Item Value Reference Range Comments HEMOGLOBIN (BEAKER) (test abti=925) 7.1 GM/DL 13.7-17.5 HEMATOCRIT (BEAKER) (test gfsl=922) 21.4 % 40.1-51.0 Draw after transfusion of 1u RBC, notify hospitalist if Hgb remains less than 7.0HEMOGLOBIN AND [id number] 11:52:00 Test Item Value Reference Range Comments HEMOGLOBIN (BEAKER) (test wesk=187) 6.3 GM/DL 13.7-17.5 HEMATOCRIT (BEAKER) (test qsvi=716) 18.9 % 40.1-51.0 Notify Hepatology if Hgb< 7.0YUNIOR Sandoval PA-CPager#: [phone].BASIC METABOLIC [id number] 05:55:00 Test Item Value Reference Range Comments SODIUM (BEAKER) (test 129 meq/L 136-145 ezgm=799) POTASSIUM (BEAKER) (test 5.2 meq/L 3.5-5.1 skjs=634) CHLORIDE (BEAKER) (test 97 meq/L 98-107 isya=975) CO2 (BEAKER) (test 22 meq/L 22-29 woeu=966) BLOOD UREA NITROGEN 28 mg/dL 7-21 (BEAKER) (test vafk=782) CREATININE (BEAKER) (test 1.95 mg/dL 0.57-1.25 fflt=599) GLUCOSE RANDOM (BEAKER) 102 mg/dL 70-105 (test cftn=431) CALCIUM (BEAKER) (test 9.4 mg/dL 8.4-10.2 zftz=244) EGFR (BEAKER) (test 36 mL/min/1.73 sq m ESTIMATED GFR IS NOT kcal=2273) ACCURATE CREATININE CLEARANCE IN PREDICTING GLOMERULAR FILTRATION RATE. ESTIMATED GFR IS NOT APPLICABLE FOR DIALYSIS PATIENTS. Specimen slightly ictericHEPATIC FUNCTION [id number] 05:55:00 Test Item Value Reference Range Comments TOTAL PROTEIN (BEAKER) (test ubqb=650) 5.6 gm/dL 6.0-8.3 ALBUMIN (BEAKER) (test bqti=0248) 3.4 g/dL 3.5-5.0 BILIRUBIN TOTAL (BEAKER) (test wbtb=516) 3.7 mg/dL 0.2-1.2 BILIRUBIN DIRECT (BEAKER) (test jqfa=064) 2.5 mg/dL 0.1-0.5 ALKALINE PHOSPHATASE (BEAKER) (test fpzl=071) 108 U/L 40-150 AST (SGOT) (BEAKER) (test rcyp=859) 17 U/L 5-34 ALT (SGPT) (BEAKER) (test modh=407) 7 U/L 6-55 Specimen slightly ictericCBC W/PLT COUNT & AUTO [id number] 05:42 :00 Test Item Value Reference Range Comments WHITE BLOOD CELL COUNT (BEAKER) (test amvs=318) 3.7 K/ L 3.5-10.5 RED BLOOD CELL COUNT (BEAKER) (test qvyk=812) 2.10 M/ L 4.63-6.08 HEMOGLOBIN (BEAKER) (test qscs=685) 6.5 GM/DL 13.7-17.5 HEMATOCRIT (BEAKER) (test occp=672) 19.8 % 40.1-51.0 MEAN CORPUSCULAR VOLUME (BEAKER) (test jczb=487) 94.3 fL 79.0-92.2 MEAN CORPUSCULAR HEMOGLOBIN (BEAKER) (test 31.0 pg 25.7-32.2 kkqz=508) MEAN CORPUSCULAR HEMOGLOBIN CONC (BEAKER) (test 32.8 GM/DL 32.3-36.5 sdbi=503) RED CELL DISTRIBUTION WIDTH (BEAKER) (test 16.4 % 11.6-14.4 bpbd=653) PLATELET COUNT (BEAKER) (test knby=747) 54 K/CU MM 150-450 MEAN PLATELET VOLUME (BEAKER) (test kcxm=857) 9.8 fL 9.4-12.4 NUCLEATED RED BLOOD CELLS (BEAKER) (test 0 /100 WBC 0-0 htxw=315) NEUTROPHILS RELATIVE PERCENT (BEAKER) (test 62 % nnea=304) LYMPHOCYTES RELATIVE PERCENT (BEAKER) (test 15 % jyvv=965) MONOCYTES RELATIVE PERCENT (BEAKER) (test 18 % dxjw=432) EOSINOPHILS RELATIVE PERCENT (BEAKER) (test 3 % jhdj=861) BASOPHILS RELATIVE PERCENT (BEAKER) (test 0 % dton=844) NEUTROPHILS ABSOLUTE COUNT (BEAKER) (test 2.27 K/ L 1.78-5.38 nyla=299) LYMPHOCYTES ABSOLUTE COUNT (BEAKER) (test 0.56 K/ L 1.32-3.57 jqbs=247) MONOCYTES ABSOLUTE COUNT (BEAKER) (test torr=811) 0.66 K/ L 0.30-0.82 EOSINOPHILS ABSOLUTE COUNT (BEAKER) (test 0.12 K/ L 0.04-0.54 ylyz=304) BASOPHILS ABSOLUTE COUNT (BEAKER) (test lnfc=680) 0.01 K/ L 0.01-0.08 IMMATURE GRANULOCYTES-RELATIVE PERCENT (BEAKER) 1 % 0-1 (test ohzu=9809) PROTHROMBIN [id number] 05:34:00 Test Item Value Reference Range Comments PROTIME (BEAKER) (test mcqs=765) 21.7 seconds 11.7-14.7 INR (BEAKER) (test hbzp=332) 1.9 <=5.9 RECOMMENDED COUMADIN/WARFARIN INR THERAPY RANGESSTANDARD DOSE: 2.0 - 3.0 Includes: PROPHYLAXIS forvenous thrombosis, systemic embolization; TREATMENT for venous thrombosis and/or pulmonary embolus.HIGH RISK: Target INR is 2.5-3.5 for patients with mechanical heart valves.EOSINOPHIL SMEAR, [id number] 21: 51:00 Test Item Value Reference Range Comments EOSINOPHIL SMEAR, URINE (BEAKER) (test No EOS seen No EOS seen cdfo=5708) BODY FLUID CELL COUNT WITH [id number] 21:42:00 Test Item Value Reference Range Comments APPEARANCE FLUID (BEAKER) (test brlp=225) Hazy Clear COLOR FLUID (BEAKER) (test vbdx=990) Yellow Colorless, Straw RBC FLUID (BEAKER) (test dzhp=440) 70 /cu mm <=1 ADJUSTED WBC FLUID (BEAKER) (test qlth=8196) 44 /cu mm <=5 LINING CELLS (BEAKER) (test zszq=8264) 8 /cu mm <=1 NEUTROPHILS FLUID (BEAKER) (test wthf=9531) 0 % LYMPHS FLUID (BEAKER) (test sabm=474) 11 % MONO/MACROPHAGE FLUID (BEAKER) (test hkzv=324) 89 % EOSINOPHILS FLUID (BEAKER) (test cbrx=023) 0 % BASO FLUID (BEAKER) (test myuv=476) 0 % CONTAINER BODY FLUID (BEAKER) (test njds=9810) EDTA Tube OSMOLALITY, [id number] 19:46:00 Test Item Value Reference Range Comments OSMOLALITY URINE (BEAKER) (test tdyx=676) 355 mOsm/kg 40-1400 SODIUM, RANDOM [id number] 19:35:00 Test Item Value Reference Range Comments SODIUM URINE (BEAKER) (test cmoz=370) < meq/L Reference Range: No NormalsPROTEIN, RANDOM [id number] 19:27:00 Test Item Value Reference Range Comments PROTEIN, URINE (BEAKER) (test jhhd=9488) 7 mg/dL 0-14 CREATININE, RANDOM [id number] 19:25:00 Test Item Value Reference Range Comments CREATININE URINE (BEAKER) (test tavw=315) 150.3 mg/dL Reference Range: No [id number] 16:26:00 Test Item Value Reference Range Comments PREALBUMIN (BEAKER) (test vazu=881) 5 mg/dL 14-45 Listed for OLT - Nutrition Surveillance ([facility] Hepatology Transplant Team)U/S, [id number] 14:56:00Reason for exam:->ascites - limit to 5L [...] MDReport Verified Date/Time: 05/05/2018 14:56:27 Reading Location: [address] Ultrasound Reading Room BASI METABOLIC [id number] 09:36:00 Test Item Value Reference Range Comments SODIUM (BEAKER) (test 125 meq/L 136-145 bdat=379) POTASSIUM (BEAKER) (test 4.2 meq/L 3.5-5.1 nbwa=774) CHLORIDE (BEAKER) (test 95 meq/L 98-107 nlam=327) CO2 (BEAKER) (test 23 meq/L 22-29 owym=254) BLOOD UREA NITROGEN 29 mg/dL 7-21 (BEAKER) (test yfyt=176) CREATININE (BEAKER) (test 2.01 mg/dL 0.57-1.25 bkbm=122) GLUCOSE RANDOM (BEAKER) 112 mg/dL 70-105 (test mipx=253) CALCIUM (BEAKER) (test 9.2 mg/dL 8.4-10.2 zikm=991) EGFR (BEAKER) (test 35 mL/min/1.73 sq m ESTIMATED GFR IS NOT cnvv=4979) ACCURATE CREATININE CLEARANCE IN PREDICTING GLOMERULAR FILTRATION RATE. ESTIMATED GFR IS NOT APPLICABLE FOR DIALYSIS PATIENTS. Specimen slightly ictericHEPATIC FUNCTION [id number] 09:36:00 Test Item Value Reference Range Comments TOTAL PROTEIN (BEAKER) (test znmy=034) 5.3 gm/dL 6.0-8.3 ALBUMIN (BEAKER) (test kcri=5632) 3.0 g/dL 3.5-5.0 BILIRUBIN TOTAL (BEAKER) (test isyv=449) 4.1 mg/dL 0.2-1.2 BILIRUBIN DIRECT (BEAKER) (test talo=310) 2.8 mg/dL 0.1-0.5 ALKALINE PHOSPHATASE (BEAKER) (test klwf=299) 115 U/L 40-150 AST (SGOT) (BEAKER) (test hdeh=154) 20 U/L 5-34 ALT (SGPT) (BEAKER) (test obcn=310) 9 U/L 6-55 Specimen slightly ictericCBC W/PLT COUNT & AUTO [id number] 09:28 :00 Test Item Value Reference Range Comments WHITE BLOOD CELL COUNT (BEAKER) (test stcy=474) 4.4 K/ L 3.5-10.5 RED BLOOD CELL COUNT (BEAKER) (test ckun=335) 2.20 M/ L 4.63-6.08 HEMOGLOBIN (BEAKER) (test boog=758) 7.1 GM/DL 13.7-17.5 HEMATOCRIT (BEAKER) (test igtk=087) 21.1 % 40.1-51.0 MEAN CORPUSCULAR VOLUME (BEAKER) (test xipy=389) 95.9 fL 79.0-92.2 MEAN CORPUSCULAR HEMOGLOBIN (BEAKER) (test 32.3 pg 25.7-32.2 nahi=570) MEAN CORPUSCULAR HEMOGLOBIN CONC (BEAKER) (test 33.6 GM/DL 32.3-36.5 tcte=262) RED CELL DISTRIBUTION WIDTH (BEAKER) (test 16.7 % 11.6-14.4 creo=458) PLATELET COUNT (BEAKER) (test xmgz=146) 60 K/CU MM 150-450 MEAN PLATELET VOLUME (BEAKER) (test rukg=611) 9.7 fL 9.4-12.4 NUCLEATED RED BLOOD CELLS (BEAKER) (test 0 /100 WBC 0-0 reqz=165) NEUTROPHILS RELATIVE PERCENT (BEAKER) (test 71 % qyae=578) LYMPHOCYTES RELATIVE PERCENT (BEAKER) (test 9 % fphh=939) MONOCYTES RELATIVE PERCENT (BEAKER) (test 16 % bjyh=004) EOSINOPHILS RELATIVE PERCENT (BEAKER) (test 3 % pser=491) BASOPHILS RELATIVE PERCENT (BEAKER) (test 0 % bgmg=847) NEUTROPHILS ABSOLUTE COUNT (BEAKER) (test 3.10 K/ L 1.78-5.38 fxht=708) LYMPHOCYTES ABSOLUTE COUNT (BEAKER) (test 0.39 K/ L 1.32-3.57 fsup=484) MONOCYTES ABSOLUTE COUNT (BEAKER) (test dlje=505) 0.69 K/ L 0.30-0.82 EOSINOPHILS ABSOLUTE COUNT (BEAKER) (test 0.12 K/ L 0.04-0.54 psem=661) BASOPHILS ABSOLUTE COUNT (BEAKER) (test utlj=221) 0.01 K/ L 0.01-0.08 IMMATURE GRANULOCYTES-RELATIVE PERCENT (BEAKER) 1 % 0-1 (test vjce=0363) PROTHROMBIN [id number] 09:07:00 Test Item Value Reference Range Comments PROTIME (BEAKER) (test umqi=825) 21.6 seconds 11.7-14.7 INR (BEAKER) (test vdbe=012) 1.9 <=5.9 RECOMMENDED COUMADIN/WARFARIN INR THERAPY RANGESSTANDARD DOSE: 2.0 - 3.0 Includes: PROPHYLAXIS forvenous thrombosis, systemic embolization; TREATMENT for venous thrombosis and/or pulmonary embolus.HIGH RISK: Target INR is 2.5-3.5 for patients with mechanical heart valves.[id number] 13:59:00 Test Item Value Reference Range Comments POC-CREATININE (BEAKER) 2.0 mg/dL 0.6-1.[address] [facility] [address] [facility] (test nsbs=1086) [facility] [address] POC-EGFR (BEAKER) (test 35 mL/min/1.73M2 ysdk=7871) PET/CT, LIMITED AREA [id number] 08:25:00PET/ CT ChestReason for Exam:-> Elongated nodular [...] thighsAdditional imaging: NoneSerum blood glucose: 119CPT Code: 62246 FINDINGS:Head and Neck: There is no trisha [...] Hung Verified Date/Time: 03/31/2018 08:25:09 POCT- GLUCOSE [id number] 14:54:00 Test Item Value Reference Range Comments POC-GLUCOSE METER (BEAKER) 119 mg/dL 70-[address] [facility] [address] [facility] (test lezk=4605) [facility] [address] COMPREHENSIVE METABOLIC [id number] 16:49:00 Test Item Value Reference Range Comments TOTAL PROTEIN (BEAKER) 6.2 gm/dL 6.0-8.3 (test qekr=627) ALBUMIN (BEAKER) (test 3.4 g/dL 3.5-5.0 nacf=3286) ALKALINE PHOSPHATASE 139 U/L 40-150 (BEAKER) (test yktb=322) BILIRUBIN TOTAL (BEAKER) 4.0 mg/dL 0.2-1.2 (test pebs=883) SODIUM (BEAKER) (test 129 meq/L 136-145 wimr=366) POTASSIUM (BEAKER) (test 4.3 meq/L 3.5-5.1 gznh=546) CHLORIDE (BEAKER) (test 96 meq/L 98-107 azxu=783) CO2 (BEAKER) (test 22 meq/L 22-29 rjrk=667) BLOOD UREA NITROGEN 28 mg/dL 7-21 (BEAKER) (test bdnr=363) CREATININE (BEAKER) (test 1.51 mg/dL 0.57-1.25 qubw=688) GLUCOSE RANDOM (BEAKER) 89 mg/dL 70-105 (test ajcb=381) CALCIUM (BEAKER) (test 9.5 mg/dL 8.4-10.2 yvfc=414) AST (SGOT) (BEAKER) (test 26 U/L 5-34 kdaa=006) ALT (SGPT) (BEAKER) (test 11 U/L 6-55 yfdt=357) EGFR (BEAKER) (test 49 mL/min/1.73 sq m ESTIMATED GFR IS NOT chhd=7750) ACCURATE CREATININE CLEARANCE IN PREDICTING GLOMERULAR FILTRATION RATE. ESTIMATED GFR IS NOT APPLICABLE FOR DIALYSIS PATIENTS. Specimen slightly ictericBILIRUBIN, [id number] 16:49:00 Test Item Value Reference Range Comments BILIRUBIN DIRECT (BEAKER) (test uvpf=102) 2.8 mg/dL 0.1-0.5 PROTHROMBIN [id number] 16:36:00 Test Item Value Reference Range Comments PROTIME (BEAKER) (test pgah=730) 19.0 seconds 11.7-14.7 INR (BEAKER) (test lcpc=020) 1.6 <=5.9 RECOMMENDED COUMADIN/WARFARIN INR THERAPY RANGESSTANDARD DOSE: 2.0 - 3.0 Includes: PROPHYLAXIS forvenous thrombosis, systemic embolization; TREATMENT for venous thrombosis and/or pulmonary embolus.HIGH RISK: Target INR is 2.5-3.5 for patients with mechanical heart valves.CBC W/PLT COUNT & AUTO [id number] 16:27:00 Test Item Value Reference Range Comments WHITE BLOOD CELL COUNT (BEAKER) (test mqie=735) 6.0 K/ L 3.5-10.5 RED BLOOD CELL COUNT (BEAKER) (test zpjl=045) 2.74 M/ L 4.63-6.08 HEMOGLOBIN (BEAKER) (test xety=194) 9.3 GM/DL 13.7-17.5 HEMATOCRIT (BEAKER) (test domo=630) 27.6 % 40.1-51.0 MEAN CORPUSCULAR VOLUME (BEAKER) (test dggr=531) 100.7 fL 79.0-92.2 MEAN CORPUSCULAR HEMOGLOBIN (BEAKER) (test 33.9 pg 25.7-32.2 lgdd=710) MEAN CORPUSCULAR HEMOGLOBIN CONC (BEAKER) (test 33.7 GM/DL 32.3-36.5 umne=631) RED CELL DISTRIBUTION WIDTH (BEAKER) (test 14.9 % 11.6-14.4 umxp=794) PLATELET COUNT (BEAKER) (test gjnr=376) 96 K/CU MM 150-450 MEAN PLATELET VOLUME (BEAKER) (test pmsz=447) 9.4 fL 9.4-12.4 NUCLEATED RED BLOOD CELLS (BEAKER) (test 0 /100 WBC 0-0 fzfj=210) NEUTROPHILS RELATIVE PERCENT (BEAKER) (test 64 % yjtd=658) LYMPHOCYTES RELATIVE PERCENT (BEAKER) (test 11 % jfno=504) MONOCYTES RELATIVE PERCENT (BEAKER) (test 16 % lyva=978) EOSINOPHILS RELATIVE PERCENT (BEAKER) (test 7 % nwbm=525) BASOPHILS RELATIVE PERCENT (BEAKER) (test 1 % atyv=721) NEUTROPHILS ABSOLUTE COUNT (BEAKER) (test 3.83 K/ L 1.78-5.38 lclk=140) LYMPHOCYTES ABSOLUTE COUNT (BEAKER) (test 0.66 K/ L 1.32-3.57 fkhe=312) MONOCYTES ABSOLUTE COUNT (BEAKER) (test pblt=555) 0.95 K/ L 0.30-0.82 EOSINOPHILS ABSOLUTE COUNT (BEAKER) (test 0.41 K/ L 0.04-0.54 qenq=284) BASOPHILS ABSOLUTE COUNT (BEAKER) (test jhxd=014) 0.03 K/ L 0.01-0.08 IMMATURE GRANULOCYTES-RELATIVE PERCENT (BEAKER) 2 % 0-1 (test szpb=0972) BASIC METABOLIC [id number] 08:26:00 Test Item Value Reference Range Comments SODIUM (BEAKER) (test 127 meq/L 136-145 hmez=496) POTASSIUM (BEAKER) (test 4.3 meq/L 3.5-5.1 urgr=644) CHLORIDE (BEAKER) (test 96 meq/L 98-107 qfql=570) CO2 (BEAKER) (test 23 meq/L 22-29 ilqh=568) BLOOD UREA NITROGEN 25 mg/dL 7-21 (BEAKER) (test cznj=279) CREATININE (BEAKER) (test 1.46 mg/dL 0.57-1.25 vgdv=764) GLUCOSE RANDOM (BEAKER) 130 mg/dL 70-105 (test lfyd=835) CALCIUM (BEAKER) (test 9.1 mg/dL 8.4-10.2 ztwi=795) EGFR (BEAKER) (test 51 mL/min/1.73 sq m ESTIMATED GFR IS NOT iipr=8961) ACCURATE CREATININE CLEARANCE IN PREDICTING GLOMERULAR FILTRATION RATE. ESTIMATED GFR IS NOT APPLICABLE FOR DIALYSIS PATIENTS. Specimen slightly ictericCBC (HEMOGRAM ONLY)2018-02-23 08:06:00 Test Item Value Reference Range Comments WHITE BLOOD CELL COUNT (BEAKER) (test xlgj=536) 5.4 K/ L 3.5-10.5 RED BLOOD CELL COUNT (BEAKER) (test nkxk=056) 2.64 M/ L 4.63-6.08 HEMOGLOBIN (BEAKER) (test ehmh=584) 8.8 GM/DL 13.7-17.5 HEMATOCRIT (BEAKER) (test loxb=410) 26.2 % 40.1-51.0 MEAN CORPUSCULAR VOLUME (BEAKER) (test eufj=779) 99.2 fL 79.0-92.2 MEAN CORPUSCULAR HEMOGLOBIN (BEAKER) (test 33.3 pg 25.7-32.2 tyih=695) MEAN CORPUSCULAR HEMOGLOBIN CONC (BEAKER) (test 33.6 GM/DL 32.3-36.5 jstm=125) RED CELL DISTRIBUTION WIDTH (BEAKER) (test 16.2 % 11.6-14.4 wtdx=588) PLATELET COUNT (BEAKER) (test gnvi=620) 100 K/CU MM 150-450 MEAN PLATELET VOLUME (BEAKER) (test kick=153) 8.7 fL 9.4-12.4 NUCLEATED RED BLOOD CELLS (BEAKER) (test 0 /100 WBC 0-0 emjq=485) COMPREHENSIVE METABOLIC [id number] 15:06:00 Test Item Value Reference Range Comments TOTAL PROTEIN (BEAKER) 6.5 gm/dL 6.0-8.3 (test dceq=351) ALBUMIN (BEAKER) (test 3.7 g/dL 3.5-5.0 lebb=4974) ALKALINE PHOSPHATASE 135 U/L 40-150 (BEAKER) (test bdxv=780) BILIRUBIN TOTAL (BEAKER) 4.5 mg/dL 0.2-1.2 (test ikme=037) SODIUM (BEAKER) (test 131 meq/L 136-145 crwc=573) POTASSIUM (BEAKER) (test 5.8 meq/L 3.5-5.1 jtiv=665) CHLORIDE (BEAKER) (test 103 meq/L 98-107 nwje=030) CO2 (BEAKER) (test 24 meq/L 22-29 pcgf=159) BLOOD UREA NITROGEN 27 mg/dL 7-21 (BEAKER) (test wblq=807) CREATININE (BEAKER) (test 1.17 mg/dL 0.57-1.25 ejlb=337) GLUCOSE RANDOM (BEAKER) 111 mg/dL 70-105 (test mlva=015) CALCIUM (BEAKER) (test 11.0 mg/dL 8.4-10.2 nnyh=118) AST (SGOT) (BEAKER) (test 28 U/L 5-34 bbkb=431) ALT (SGPT) (BEAKER) (test 19 U/L 6-55 inqg=771) EGFR (BEAKER) (test 65 mL/min/1.73 sq m ESTIMATED GFR IS NOT ihgz=8935) ACCURATE CREATININE CLEARANCE IN PREDICTING GLOMERULAR FILTRATION RATE. ESTIMATED GFR IS NOT APPLICABLE FOR DIALYSIS PATIENTS. Specimen slightly ictericBILIRUBIN, [id number] 15:06:00 Test Item Value Reference Range Comments BILIRUBIN DIRECT (BEAKER) (test sbqs=261) 3.0 mg/dL 0.1-0.5 PROTHROMBIN [id number] 14:42:00 Test Item Value Reference Range Comments PROTIME (BEAKER) (test hosv=832) 19.1 seconds 11.7-14.7 INR (BEAKER) (test xway=554) 1.6 <=5.9 RECOMMENDED COUMADIN/WARFARIN INR THERAPY RANGESSTANDARD DOSE: 2.0 - 3.0 Includes: PROPHYLAXIS forvenous thrombosis, systemic embolization; TREATMENT for venous thrombosis and/or pulmonary embolus.HIGH RISK: Target INR is 2.5-3.5 for patients with mechanical heart valves.CBC W/PLT COUNT & AUTO [id number] 14:36:00 Test Item Value Reference Range Comments WHITE BLOOD CELL COUNT (BEAKER) (test hcoh=758) 5.5 K/ L 3.5-10.5 RED BLOOD CELL COUNT (BEAKER) (test fyhs=363) 2.84 M/ L 4.63-6.08 HEMOGLOBIN (BEAKER) (test svwh=442) 9.5 GM/DL 13.7-17.5 HEMATOCRIT (BEAKER) (test yssk=893) 28.8 % 40.1-51.0 MEAN CORPUSCULAR VOLUME (BEAKER) (test fucz=633) 101.4 fL 79.0-92.2 MEAN CORPUSCULAR HEMOGLOBIN (BEAKER) (test 33.5 pg 25.7-32.2 wkte=666) MEAN CORPUSCULAR HEMOGLOBIN CONC (BEAKER) (test 33.0 GM/DL 32.3-36.5 iqtm=577) RED CELL DISTRIBUTION WIDTH (BEAKER) (test 19.4 % 11.6-14.4 zbgy=139) PLATELET COUNT (BEAKER) (test dkan=870) 65 K/CU MM 150-450 MEAN PLATELET VOLUME (BEAKER) (test nbxy=524) 8.8 fL 9.4-12.4 NUCLEATED RED BLOOD CELLS (BEAKER) (test 0 /100 WBC 0-0 ebjc=026) NEUTROPHILS RELATIVE PERCENT (BEAKER) (test 66 % wcai=300) LYMPHOCYTES RELATIVE PERCENT (BEAKER) (test 14 % hxvu=351) MONOCYTES RELATIVE PERCENT (BEAKER) (test 15 % nfqp=585) EOSINOPHILS RELATIVE PERCENT (BEAKER) (test 4 % mugp=126) BASOPHILS RELATIVE PERCENT (BEAKER) (test 0 % ahzb=647) NEUTROPHILS ABSOLUTE COUNT (BEAKER) (test 3.58 K/ L 1.78-5.38 yhbz=788) LYMPHOCYTES ABSOLUTE COUNT (BEAKER) (test 0.78 K/ L 1.32-3.57 wuxy=933) MONOCYTES ABSOLUTE COUNT (BEAKER) (test sfaz=552) 0.79 K/ L 0.30-0.82 EOSINOPHILS ABSOLUTE COUNT (BEAKER) (test 0.23 K/ L 0.04-0.54 xmyf=460) BASOPHILS ABSOLUTE COUNT (BEAKER) (test sjse=967) 0.02 K/ L 0.01-0.08 IMMATURE GRANULOCYTES-RELATIVE PERCENT (BEAKER) 1 % 0-1 (test mtnu=6529) RAD, KNEE, COMPLETE (4 VIEWS), [id number] 11:15:00Reason for exam:->FALL , PAINFINAL REPORT Bilateral [...] Location: [facility] Radiology Reading Room RAD, KNEE, COMPLETE (4 VIEWS), [id number] 11:15:00Reason for exam:->FALL, PAINFINAL REPORT Bilateral knee [...] Location: [facility] Radiology Reading Room CBC W/PLT COUNT & AUTO [id number] 10: 58:00 Test Item Value Reference Range Comments WHITE BLOOD CELL COUNT (BEAKER) (test yyau=812) 2.9 K/ L 3.5-10.5 RED BLOOD CELL COUNT (BEAKER) (test pmjh=147) 2.27 M/ L 4.63-6.08 HEMOGLOBIN (BEAKER) (test lhhc=429) 7.1 GM/DL 13.7-17.5 HEMATOCRIT (BEAKER) (test xrhw=666) 21.0 % 40.1-51.0 MEAN CORPUSCULAR VOLUME (BEAKER) (test ldjt=513) 92.5 fL 79.0-92.2 MEAN CORPUSCULAR HEMOGLOBIN (BEAKER) (test 31.3 pg 25.7-32.2 nbds=411) MEAN CORPUSCULAR HEMOGLOBIN CONC (BEAKER) (test 33.8 GM/DL 32.3-36.5 lmys=860) RED CELL DISTRIBUTION WIDTH (BEAKER) (test 17.2 % 11.6-14.4 kkax=953) PLATELET COUNT (BEAKER) (test kqgp=551) 42 K/CU MM 150-450 MEAN PLATELET VOLUME (BEAKER) (test vffg=882) 10.1 fL 9.4-12.4 NUCLEATED RED BLOOD CELLS (BEAKER) (test 0 /100 WBC 0-0 qiik=030) NEUTROPHILS RELATIVE PERCENT (BEAKER) (test 77 % umah=696) LYMPHOCYTES RELATIVE PERCENT (BEAKER) (test 12 % yuiv=505) MONOCYTES RELATIVE PERCENT (BEAKER) (test 10 % gpnb=391) EOSINOPHILS RELATIVE PERCENT (BEAKER) (test 1 % pvdq=482) BASOPHILS RELATIVE PERCENT (BEAKER) (test 0 % rzvp=264) NEUTROPHILS ABSOLUTE COUNT (BEAKER) (test 2.21 K/ L 1.78-5.38 jbbj=880) LYMPHOCYTES ABSOLUTE COUNT (BEAKER) (test 0.33 K/ L 1.32-3.57 vezx=011) MONOCYTES ABSOLUTE COUNT (BEAKER) (test flnq=904) 0.30 K/ L 0.30-0.82 EOSINOPHILS ABSOLUTE COUNT (BEAKER) (test 0.03 K/ L 0.04-0.54 hdhl=360) BASOPHILS ABSOLUTE COUNT (BEAKER) (test bcrs=323) 0.00 K/ L 0.01-0.08 IMMATURE GRANULOCYTES-RELATIVE PERCENT (BEAKER) 0 % 0-1 (test zfzc=7408) [id number] 06:06:00 Test Item Value Reference Range Comments PHOSPHORUS (BEAKER) (test bgwh=875) 3.6 mg/dL 2.3-4.7 [id number] 06:06:00 Test Item Value Reference Range Comments MAGNESIUM (BEAKER) (test jywc=756) 2.0 mg/dL 1.6-2.6 BASIC METABOLIC [id number] 06:06:00 Test Item Value Reference Range Comments SODIUM (BEAKER) (test 130 meq/L 136-145 cwuc=766) POTASSIUM (BEAKER) (test 4.4 meq/L 3.5-5.1 qipz=566) CHLORIDE (BEAKER) (test 100 meq/L 98-107 ebia=404) CO2 (BEAKER) (test 23 meq/L 22-29 gjta=016) BLOOD UREA NITROGEN 21 mg/dL 7-21 (BEAKER) (test votx=250) CREATININE (BEAKER) (test 1.11 mg/dL 0.57-1.25 qopu=045) GLUCOSE RANDOM (BEAKER) 120 mg/dL 70-105 (test bksh=207) CALCIUM (BEAKER) (test 9.4 mg/dL 8.4-10.2 uqgw=892) EGFR (BEAKER) (test 70 mL/min/1.73 sq m ESTIMATED GFR IS NOT lsyh=5389) ACCURATE CREATININE CLEARANCE IN PREDICTING GLOMERULAR FILTRATION RATE. ESTIMATED GFR IS NOT APPLICABLE FOR DIALYSIS PATIENTS. Specimen slightly ictericPROTHROMBIN [id number] 06:02:00 Test Item Value Reference Range Comments PROTIME (BEAKER) (test xupq=852) 22.9 seconds 11.7-14.7 INR (BEAKER) (test kaij=422) 2.0 <=5.9 RECOMMENDED COUMADIN/WARFARIN INR THERAPY RANGESSTANDARD DOSE: 2.0 - 3.0 Includes: PROPHYLAXIS forvenous thrombosis, systemic embolization; TREATMENT for venous thrombosis and/or pulmonary embolus.HIGH RISK: Target INR is 2.5-3.5 for patients with mechanical heart valves.CALCIUM, [id number] 06:01:00 Test Item Value Reference Range Comments CALCIUM IONIZED (BEAKER) (test pqjq=733) 1.11 mmol/L 1.12-1.27 PH, BLOOD (BEAKER) (test jkkl=4580) 7.53 CORTISOL,60 [id number] 23:20:00 Test Item Value Reference Range Comments CORTISOL BASELINE NETWORKED (BEAKER) (test 4.8 mcg/dL axzt=3320) CORTISOL 30 MINUTE NETWORKED (BEAKER) (test 9.2 mcg/dL miwn=6796) CORTISOL, 60 MINUTE (BEAKER) (test omzf=3643) 12.6 ug/dL ACTH STIMULATION TEST INTERPRETATION GUIDELINES(Synonyms: [...] study by Mindy et al (NEVAEH 2000,283( 8):1496-65), the ACTH Stimulation Test provides important prognostic [...] serum cortisollevel 60 minutes after cosyntropin administration.CORTISOL,30 [id number] 22:35:00 Test Item Value Reference Range Comments CORTISOL BASELINE NETWORKED (BEAKER) (test 4.8 mcg/dL bwlh=3623) CORTISOL, 30 MINUTE (BEAKER) (test grdx=6622) 9.2 ug/dL ACTH STIMULATION TEST INTERPRETATION GUIDELINES(Synonyms: [...] Draw serum cortisollevel 60 minutes after cosyntropin administration.CORTISOL,[id number] 22:35:00 Test Item Value Reference Range Comments CORTISOL, BASELINE (BEAKER) (test hqyo=5351) 4.8 ug/dL ACTH STIMULATION TEST INTERPRETATION GUIDELINES(Synonyms: [...] serum cortisollevel 60 minutes after cosyntropin administration.U/S, [id number] 17:54:00Reason for exam:->therapeuticFINAL REPORT History: Ascites. PROCEDURE: Following informed written consent,the patient's right lower quadrant was prepped and draped in the usual sterile manner. 2% lidocaine was given locally for anesthesia. No conscious sedation was administered. Using ultrasound guidance, a 5 [place] one-step catheter was advanced percutaneously into the [...] Verified Date/Time: 01/05/2018 17: 54:16 Reading Location: [address] Ultrasound Reading Room [id number] 11:19:00 Test Item Value Reference Range Comments CORTISOL, TOTAL (BEAKER) (test ycih=1036) 2.7 ug/dL 3.7-19.4 [id number] 10:21:00 Test Item Value Reference Range Comments PHOSPHORUS (BEAKER) (test nzvr=346) 2.8 mg/dL 2.3-4.7 [id number] 10:21:00 Test Item Value Reference Range Comments MAGNESIUM (BEAKER) (test wvvm=187) 1.9 mg/dL 1.6-2.6 BASIC METABOLIC [id number] 10:21:00 Test Item Value Reference Range Comments SODIUM (BEAKER) (test 127 meq/L 136-145 igpk=484) POTASSIUM (BEAKER) (test 5.0 meq/L 3.5-5.1 vbvq=662) CHLORIDE (BEAKER) (test 100 meq/L 98-107 abgl=841) CO2 (BEAKER) (test 22 meq/L 22-29 qnwi=555) BLOOD UREA NITROGEN 25 mg/dL 7-21 (BEAKER) (test javf=054) CREATININE (BEAKER) (test 1.17 mg/dL 0.57-1.25 brbc=682) GLUCOSE RANDOM (BEAKER) 84 mg/dL 70-105 (test dtus=741) CALCIUM (BEAKER) (test 8.7 mg/dL 8.4-10.2 pfni=369) EGFR (BEAKER) (test 65 mL/min/1.73 sq m ESTIMATED GFR IS NOT vzhd=7241) ACCURATE CREATININE CLEARANCE IN PREDICTING GLOMERULAR FILTRATION RATE. ESTIMATED GFR IS NOT APPLICABLE FOR DIALYSIS PATIENTS. Specimen slightly ictericCBC W/PLT COUNT & AUTO [id number] 08:42 :00 Test Item Value Reference Range Comments WHITE BLOOD CELL COUNT (BEAKER) (test jrpl=082) 2.7 K/ L 3.5-10.5 RED BLOOD CELL COUNT (BEAKER) (test mnnv=532) 2.33 M/ L 4.63-6.08 HEMOGLOBIN (BEAKER) (test babj=493) 7.3 GM/DL 13.7-17.5 HEMATOCRIT (BEAKER) (test mtaj=493) 22.0 % 40.1-51.0 MEAN CORPUSCULAR VOLUME (BEAKER) (test trik=559) 94.4 fL 79.0-92.2 MEAN CORPUSCULAR HEMOGLOBIN (BEAKER) (test 31.3 pg 25.7-32.2 tksj=496) MEAN CORPUSCULAR HEMOGLOBIN CONC (BEAKER) (test 33.2 GM/DL 32.3-36.5 azri=393) RED CELL DISTRIBUTION WIDTH (BEAKER) (test 17.2 % 11.6-14.4 anwx=676) PLATELET COUNT (BEAKER) (test xrkk=148) 45 K/CU MM 150-450 MEAN PLATELET VOLUME (BEAKER) (test qsny=539) 9.3 fL 9.4-12.4 NUCLEATED RED BLOOD CELLS (BEAKER) (test 0 /100 WBC 0-0 eaek=548) NEUTROPHILS RELATIVE PERCENT (BEAKER) (test 60 % zdsd=927) LYMPHOCYTES RELATIVE PERCENT (BEAKER) (test 17 % qabp=241) MONOCYTES RELATIVE PERCENT (BEAKER) (test 16 % ctqt=649) EOSINOPHILS RELATIVE PERCENT (BEAKER) (test 6 % tgxg=580) BASOPHILS RELATIVE PERCENT (BEAKER) (test 0 % gylb=324) NEUTROPHILS ABSOLUTE COUNT (BEAKER) (test 1.63 K/ L 1.78-5.38 mrdn=835) LYMPHOCYTES ABSOLUTE COUNT (BEAKER) (test 0.45 K/ L 1.32-3.57 vvol=102) MONOCYTES ABSOLUTE COUNT (BEAKER) (test rdaf=940) 0.44 K/ L 0.30-0.82 EOSINOPHILS ABSOLUTE COUNT (BEAKER) (test 0.16 K/ L 0.04-0.54 pmzd=245) BASOPHILS ABSOLUTE COUNT (BEAKER) (test qiol=064) 0.01 K/ L 0.01-0.08 IMMATURE GRANULOCYTES-RELATIVE PERCENT (BEAKER) 1 % 0-1 (test doyj=1944) (MANUAL DIFFERENTIAL)2018-01-05 08:42:00 Test Item Value Reference Range Comments TOTAL COUNTED (BEAKER) (test viuk=0785) WBC MORPHOLOGY (BEAKER) (test wzah=505) Normal PLT MORPHOLOGY (BEAKER) (test sqcq=126) Normal ANISOCYTOSIS (BEAKER) (test udvl=047) 1+ few CALCIUM, [id number] 08:10:00 Test Item Value Reference Range Comments CALCIUM IONIZED (BEAKER) (test tvqo=560) 1.08 mmol/L 1.12-1.27 PH, BLOOD (BEAKER) (test uxjc=2554) 7.44 PROTHROMBIN [id number] 07:12:00 Test Item Value Reference Range Comments PROTIME (BEAKER) (test kfcm=357) 22.4 seconds 11.7-14.7 INR (BEAKER) (test smqv=831) 2.0 <=5.9 RECOMMENDED COUMADIN/WARFARIN INR THERAPY RANGESSTANDARD DOSE: 2.0 - 3.0 Includes: PROPHYLAXIS forvenous thrombosis, systemic embolization; TREATMENT for venous thrombosis and/or pulmonary embolus.HIGH RISK: Target INR is 2.5-3.5 for patients with mechanical heart valves.[id number] 17:54:00 Test Item Value Reference Range Comments SODIUM (BEAKER) (test yfac=915) 129 meq/L 136-145 POTASSIUM (BEAKER) (test gafx=145) 5.5 meq/L 3.5-5.1 CHLORIDE (BEAKER) (test yovx=365) 101 meq/L 98-107 CO2 (BEAKER) (test ulpx=904) 26 meq/L 22-29 Call [id number] with resultsCBC (HEMOGRAM ONLY)2018-01-04 07:16:00 Test Item Value Reference Range Comments WHITE BLOOD CELL COUNT (BEAKER) (test uwmk=733) 2.9 K/ L 3.5-10.5 RED BLOOD CELL COUNT (BEAKER) (test ojnq=917) 2.25 M/ L 4.63-6.08 HEMOGLOBIN (BEAKER) (test gejc=051) 7.3 GM/DL 13.7-17.5 HEMATOCRIT (BEAKER) (test ijwy=022) 21.3 % 40.1-51.0 MEAN CORPUSCULAR VOLUME (BEAKER) (test pxsj=783) 94.7 fL 79.0-92.2 MEAN CORPUSCULAR HEMOGLOBIN (BEAKER) (test 32.4 pg 25.7-32.2 zqnh=140) MEAN CORPUSCULAR HEMOGLOBIN CONC (BEAKER) (test 34.3 GM/DL 32.3-36.5 jbik=139) RED CELL DISTRIBUTION WIDTH (BEAKER) (test 17.6 % 11.6-14.4 hhgx=514) PLATELET COUNT (BEAKER) (test snro=204) 59 K/CU MM 150-450 MEAN PLATELET VOLUME (BEAKER) (test pktv=881) 11.3 fL 9.4-12.4 NUCLEATED RED BLOOD CELLS (BEAKER) (test 0 /100 WBC 0-0 pjex=218) COMPREHENSIVE METABOLIC [id number] 06:49:00 Test Item Value Reference Range Comments TOTAL PROTEIN (BEAKER) 5.3 gm/dL 6.0-8.3 Specimen slightly (test txve=163) hemolyzed ALBUMIN (BEAKER) (test 3.3 g/dL 3.5-5.0 Specimen slightly gwvm=6445) hemolyzed ALKALINE PHOSPHATASE 81 U/L 40-150 (BEAKER) (test ynxo=656) BILIRUBIN TOTAL (BEAKER) 2.4 mg/dL 0.2-1.2 Specimen slightly (test armb=005) hemolyzed SODIUM (BEAKER) (test 127 meq/L 136-145 nldy=964) POTASSIUM (BEAKER) (test 5.7 meq/L 3.5-5.1 Specimen slightly xevd=437) hemolyzed CHLORIDE (BEAKER) (test 100 meq/L 98-107 sxap=323) CO2 (BEAKER) (test 20 meq/L 22-29 lklb=709) BLOOD UREA NITROGEN 22 mg/dL 7-21 (BEAKER) (test lyyq=618) CREATININE (BEAKER) (test 1.14 mg/dL 0.57-1.25 Specimen slightly qxtm=334) hemolyzed GLUCOSE RANDOM (BEAKER) 96 mg/dL 70-105 (test xkyf=552) CALCIUM (BEAKER) (test 8.9 mg/dL 8.4-10.2 xqcd=645) AST (SGOT) (BEAKER) (test 30 U/L 5-34 Specimen slightly weex=992) hemolyzed ALT (SGPT) (BEAKER) (test 8 U/L 6-55 Specimen slightly ejpb=783) hemolyzed EGFR (BEAKER) (test 67 mL/min/1.73 sq m ESTIMATED GFR IS NOT sdyn=6364) ACCURATE CREATININE CLEARANCE IN PREDICTING GLOMERULAR FILTRATION RATE. ESTIMATED GFR IS NOT APPLICABLE FOR DIALYSIS PATIENTS. Specimen slightly ictericPROTHROMBIN TIME/[id number] 06:15:00 Test Item Value Reference Range Comments PROTIME (BEAKER) (test gtng=898) 22.7 seconds 11.7-14.7 INR (BEAKER) (test hpov=654) 2.0 <=5.9 RECOMMENDED COUMADIN/WARFARIN INR THERAPY RANGESSTANDARD DOSE: 2.0 - 3.0 Includes: PROPHYLAXIS forvenous thrombosis, systemic embolization; TREATMENT for venous thrombosis and/or pulmonary embolus.HIGH RISK: Target INR is 2.5-3.5 for patients with mechanical heart valves.VITAMIN B12 AND [id number] 16:39 :00 Test Item Value Reference Range Comments VITAMIN B12 (BEAKER) (test vsat=738) 829 pg/mL 213-816 FOLATE (BEAKER) (test avok=996) 18.9 ng/mL >=7.0 CALCIUM, [id number] 07:14:00 Test Item Value Reference Range Comments CALCIUM IONIZED (BEAKER) (test pqyu=640) 1.08 mmol/L 1.12-1.27 PH, BLOOD (BEAKER) (test qyul=6102) 7.41 COMPREHENSIVE METABOLIC [id number] 07:00:00 Test Item Value Reference Range Comments TOTAL PROTEIN (BEAKER) 5.0 gm/dL 6.0-8.3 (test goxt=433) ALBUMIN (BEAKER) (test 3.1 g/dL 3.5-5.0 awut=7839) ALKALINE PHOSPHATASE 65 U/L 40-150 (BEAKER) (test bgmb=139) BILIRUBIN TOTAL (BEAKER) 2.5 mg/dL 0.2-1.2 (test aumb=339) SODIUM (BEAKER) (test 127 meq/L 136-145 zylo=683) POTASSIUM (BEAKER) (test 4.7 meq/L 3.5-5.1 ntxq=522) CHLORIDE (BEAKER) (test 99 meq/L 98-107 iuit=808) CO2 (BEAKER) (test 23 meq/L 22-29 pnyx=519) BLOOD UREA NITROGEN 21 mg/dL 7-21 (BEAKER) (test wacf=487) CREATININE (BEAKER) (test 1.13 mg/dL 0.57-1.25 mdrb=568) GLUCOSE RANDOM (BEAKER) 92 mg/dL 70-105 (test bmae=003) CALCIUM (BEAKER) (test 8.9 mg/dL 8.4-10.2 dley=318) AST (SGOT) (BEAKER) (test 18 U/L 5-34 dufi=523) ALT (SGPT) (BEAKER) (test 8 U/L 6-55 mmlz=842) EGFR (BEAKER) (test 68 mL/min/1.73 sq m ESTIMATED GFR IS NOT ybjs=7185) ACCURATE CREATININE CLEARANCE IN PREDICTING GLOMERULAR FILTRATION RATE. ESTIMATED GFR IS NOT APPLICABLE FOR DIALYSIS PATIENTS. [id number] 06:37:00 Test Item Value Reference Range Comments PHOSPHORUS (BEAKER) (test rdqp=926) 3.2 mg/dL 2.3-4.7 [id number] 06:37:00 Test Item Value Reference Range Comments MAGNESIUM (BEAKER) (test ofry=183) 1.9 mg/dL 1.6-2.6 CBC (HEMOGRAM ONLY)2018-01-03 06:25:00 Test Item Value Reference Range Comments WHITE BLOOD CELL COUNT (BEAKER) (test tjum=176) 3.1 K/ L 3.5-10.5 RED BLOOD CELL COUNT (BEAKER) (test wene=683) 2.31 M/ L 4.63-6.08 HEMOGLOBIN (BEAKER) (test ulwz=550) 7.4 GM/DL 13.7-17.5 HEMATOCRIT (BEAKER) (test xedi=272) 21.6 % 40.1-51.0 MEAN CORPUSCULAR VOLUME (BEAKER) (test qkcr=484) 93.5 fL 79.0-92.2 MEAN CORPUSCULAR HEMOGLOBIN (BEAKER) (test 32.0 pg 25.7-32.2 rwxs=910) MEAN CORPUSCULAR HEMOGLOBIN CONC (BEAKER) (test 34.3 GM/DL 32.3-36.5 ysvy=038) RED CELL DISTRIBUTION WIDTH (BEAKER) (test 17.4 % 11.6-14.4 ddad=017) PLATELET COUNT (BEAKER) (test ftaw=166) 50 K/CU MM 150-450 MEAN PLATELET VOLUME (BEAKER) (test xrcz=825) 10.5 fL 9.4-12.4 NUCLEATED RED BLOOD CELLS (BEAKER) (test 0 /100 WBC 0-0 wlfh=911) PROTHROMBIN [id number] 06:09:00 Test Item Value Reference Range Comments PROTIME (BEAKER) (test ygnm=206) 22.2 seconds 11.7-14.7 INR (BEAKER) (test zgpf=690) 2.0 <=5.9 RECOMMENDED COUMADIN/WARFARIN INR THERAPY RANGESSTANDARD DOSE: 2.0 - 3.0 Includes: PROPHYLAXIS forvenous thrombosis, systemic embolization; TREATMENT for venous thrombosis and/or pulmonary embolus.HIGH RISK: Target INR is 2.5-3.5 for patients with mechanical heart valves.[id number] 07:54:00 Test Item Value Reference Range Comments PHOSPHORUS (BEAKER) (test htla=544) 3.2 mg/dL 2.3-4.7 [id number] 07:54:00 Test Item Value Reference Range Comments MAGNESIUM (BEAKER) (test hxfn=463) 1.4 mg/dL 1.6-2.6 COMPREHENSIVE METABOLIC [id number] 07:54:00 Test Item Value Reference Range Comments TOTAL PROTEIN (BEAKER) 5.3 gm/dL 6.0-8.3 (test nlde=080) ALBUMIN (BEAKER) (test 3.4 g/dL 3.5-5.0 drmr=9250) ALKALINE PHOSPHATASE 55 U/L 40-150 (BEAKER) (test crnq=198) BILIRUBIN TOTAL (BEAKER) 3.9 mg/dL 0.2-1.2 (test brhi=635) SODIUM (BEAKER) (test 131 meq/L 136-145 kisk=952) POTASSIUM (BEAKER) (test 4.3 meq/L 3.5-5.1 lspu=667) CHLORIDE (BEAKER) (test 101 meq/L 98-107 ivhv=931) CO2 (BEAKER) (test 23 meq/L 22-29 esmn=904) BLOOD UREA NITROGEN 19 mg/dL 7-21 (BEAKER) (test giwg=626) CREATININE (BEAKER) (test 0.97 mg/dL 0.57-1.25 pnos=744) GLUCOSE RANDOM (BEAKER) 80 mg/dL 70-105 (test ulwj=303) CALCIUM (BEAKER) (test 9.4 mg/dL 8.4-10.2 wahw=443) AST (SGOT) (BEAKER) (test 17 U/L 5-34 bqor=488) ALT (SGPT) (BEAKER) (test 8 U/L 6-55 gwvh=456) EGFR (BEAKER) (test 81 mL/min/1.73 sq m ESTIMATED GFR IS NOT ipoj=6011) ACCURATE CREATININE CLEARANCE IN PREDICTING GLOMERULAR FILTRATION RATE. ESTIMATED GFR IS NOT APPLICABLE FOR DIALYSIS PATIENTS. Specimen slightly ictericCBC W/PLT COUNT & AUTO [id number] 07:14 :00 Test Item Value Reference Range Comments WHITE BLOOD CELL COUNT (BEAKER) (test uycq=730) 2.9 K/ L 3.5-10.5 RED BLOOD CELL COUNT (BEAKER) (test lige=732) 2.55 M/ L 4.63-6.08 HEMOGLOBIN (BEAKER) (test dbnj=759) 8.1 GM/DL 13.7-17.5 HEMATOCRIT (BEAKER) (test yahw=666) 23.7 % 40.1-51.0 MEAN CORPUSCULAR VOLUME (BEAKER) (test zbyy=887) 92.9 fL 79.0-92.2 MEAN CORPUSCULAR HEMOGLOBIN (BEAKER) (test 31.8 pg 25.7-32.2 wreo=598) MEAN CORPUSCULAR HEMOGLOBIN CONC (BEAKER) (test 34.2 GM/DL 32.3-36.5 onio=402) RED CELL DISTRIBUTION WIDTH (BEAKER) (test 17.5 % 11.6-14.4 nhqp=768) PLATELET COUNT (BEAKER) (test zssn=938) 50 K/CU MM 150-450 MEAN PLATELET VOLUME (BEAKER) (test kuqy=068) 9.5 fL 9.4-12.4 NUCLEATED RED BLOOD CELLS (BEAKER) (test 0 /100 WBC 0-0 foom=966) NEUTROPHILS RELATIVE PERCENT (BEAKER) (test 57 % ojfx=893) LYMPHOCYTES RELATIVE PERCENT (BEAKER) (test 17 % iodq=094) MONOCYTES RELATIVE PERCENT (BEAKER) (test 18 % cwre=146) EOSINOPHILS RELATIVE PERCENT (BEAKER) (test 7 % icxd=912) BASOPHILS RELATIVE PERCENT (BEAKER) (test 0 % kxik=664) NEUTROPHILS ABSOLUTE COUNT (BEAKER) (test 1.65 K/ L 1.78-5.38 ajul=672) LYMPHOCYTES ABSOLUTE COUNT (BEAKER) (test 0.49 K/ L 1.32-3.57 yiyd=480) MONOCYTES ABSOLUTE COUNT (BEAKER) (test ourj=090) 0.51 K/ L 0.30-0.82 EOSINOPHILS ABSOLUTE COUNT (BEAKER) (test 0.20 K/ L 0.04-0.54 omxd=444) BASOPHILS ABSOLUTE COUNT (BEAKER) (test viai=754) 0.01 K/ L 0.01-0.08 IMMATURE GRANULOCYTES-RELATIVE PERCENT (BEAKER) 1 % 0-1 (test yfln=7135) (MANUAL DIFFERENTIAL)2018-01-02 07:14:00 Test Item Value Reference Range Comments TOTAL COUNTED (BEAKER) (test slwf=3174) CALCIUM, [id number] 07:04:00 Test Item Value Reference Range Comments CALCIUM IONIZED (BEAKER) (test sexs=484) 1.07 mmol/L 1.12-1.27 PH, BLOOD (BEAKER) (test kyjk=6318) 7.49 PROTHROMBIN [id number] 06:42:00 Test Item Value Reference Range Comments PROTIME (BEAKER) (test dqkh=751) 24.6 seconds 11.7-14.7 INR (BEAKER) (test sdkv=138) 2.2 <=5.9 RECOMMENDED COUMADIN/WARFARIN INR THERAPY RANGESSTANDARD DOSE: 2.0 - 3.0 Includes: PROPHYLAXIS forvenous thrombosis, systemic embolization; TREATMENT for venous thrombosis and/or pulmonary embolus.HIGH RISK: Target INR is 2.5-3.5 for patients with mechanical heart valves.CYTOMEGALOVIRUS ANTIBODY, [id number] 14:58:00 Test Item Value Reference Range Comments CYTOMEGALOVIRUS IGG ANTIBODY (BEAKER) (test Positive gxnr=033) CYTOMEGALOVIRUS ANTIBODY, [id number] 14:58:00 Test Item Value Reference Range Comments CYTOMEGALOVIRUS IGM ANTIBODY (BEAKER) (test Negative lgws=146) EBV-VCA ANTIBODY, [id number] 14:58:00 Test Item Value Reference Range Comments MARCELLUS-DAVIS VCA IGG (BEAKER) (test lbcn=559) Positive EBV-VCA ANTIBODY, [id number] 14:58:00 Test Item Value Reference Range Comments MARCELLUS-DAVIS VCA IGM (BEAKER) (test owso=244) Negative BODY FLUID CELL COUNT WITH [id number] 14:27:00 Test Item Value Reference Range Comments APPEARANCE FLUID (BEAKER) (test kbxn=473) Slightly Hazy Clear COLOR FLUID (BEAKER) (test mnxw=308) Yellow Colorless, Straw RBC FLUID (BEAKER) (test pusa=821) 378 /cu mm <=1 ADJUSTED WBC FLUID (BEAKER) (test jnxj=5593) 84 /cu mm <=5 LINING CELLS (BEAKER) (test ahhx=9441) 17 /cu mm <=1 NEUTROPHILS FLUID (BEAKER) (test kabn=2126) 1 % LYMPHS FLUID (BEAKER) (test qibx=960) 14 % MONO/MACROPHAGE FLUID (BEAKER) (test 85 % gluo=520) EOSINOPHILS FLUID (BEAKER) (test cscq=616) 0 % BASO FLUID (BEAKER) (test zbft=081) 0 % CONTAINER BODY FLUID (BEAKER) (test EDTA Tube vhqa=9495) U/S, [id number] 11:17:00Reason for exam:->ascitesFINAL REPORT Ultrasound guided paracentesis, 01/01/2018. Clinical History:Ascites. Sedation: None. Special Duty Nurse: Paul Butler MD Flume Worker: None. Estimated Blood Loss: < 1 cc. [...] was achieved with 1% lidocaine, a 5 [place] one-step catheter was advanced into the peritoneal cavity under ultrasound guidance. After completion of drainage, the catheter was removed. There was no evidence ofcomplication. Patient Disposition: The patient was transferred to the inpatient unit from the ultrasound department after the paracentesis, in good condition. Impression:Successful ultrasound guided paracentesis. Signed: Paul Butler MDReport Verified Date/Time: 01/01/2018 11:17:26 Reading Location: [address] Ultrasound Reading Room CBC W/PLT COUNT & AUTO [id number] 08:55:00 Test Item Value Reference Range Comments WHITE BLOOD CELL COUNT (BEAKER) (test euow=378) 2.6 K/ L 3.5-10.5 RED BLOOD CELL COUNT (BEAKER) (test vxzh=893) 2.17 M/ L 4.63-6.08 HEMOGLOBIN (BEAKER) (test xaty=837) 6.9 GM/DL 13.7-17.5 HEMATOCRIT (BEAKER) (test vvev=216) 20.6 % 40.1-51.0 MEAN CORPUSCULAR VOLUME (BEAKER) (test mdwq=167) 94.9 fL 79.0-92.2 MEAN CORPUSCULAR HEMOGLOBIN (BEAKER) (test 31.8 pg 25.7-32.2 kpeg=401) MEAN CORPUSCULAR HEMOGLOBIN CONC (BEAKER) (test 33.5 GM/DL 32.3-36.5 fahi=670) RED CELL DISTRIBUTION WIDTH (BEAKER) (test 17.0 % 11.6-14.4 ujga=343) PLATELET COUNT (BEAKER) (test rkml=823) 43 K/CU MM 150-450 MEAN PLATELET VOLUME (BEAKER) (test ytao=235) 9.3 fL 9.4-12.4 NUCLEATED RED BLOOD CELLS (BEAKER) (test 0 /100 WBC 0-0 rmqz=532) NEUTROPHILS RELATIVE PERCENT (BEAKER) (test 62 % kflh=288) LYMPHOCYTES RELATIVE PERCENT (BEAKER) (test 13 % tjcw=117) MONOCYTES RELATIVE PERCENT (BEAKER) (test 18 % mzvc=775) EOSINOPHILS RELATIVE PERCENT (BEAKER) (test 6 % vqsu=420) BASOPHILS RELATIVE PERCENT (BEAKER) (test 0 % fspe=526) NEUTROPHILS ABSOLUTE COUNT (BEAKER) (test 1.58 K/ L 1.78-5.38 ezva=194) LYMPHOCYTES ABSOLUTE COUNT (BEAKER) (test 0.33 K/ L 1.32-3.57 hkkh=427) MONOCYTES ABSOLUTE COUNT (BEAKER) (test vtri=201) 0.46 K/ L 0.30-0.82 EOSINOPHILS ABSOLUTE COUNT (BEAKER) (test 0.15 K/ L 0.04-0.54 avyz=103) BASOPHILS ABSOLUTE COUNT (BEAKER) (test sghp=688) 0.01 K/ L 0.01-0.08 IMMATURE GRANULOCYTES-RELATIVE PERCENT (BEAKER) 1 % 0-1 (test yytc=3323) (MANUAL DIFFERENTIAL)2018-01-01 08:55:00 Test Item Value Reference Range Comments TOTAL COUNTED (BEAKER) (test ejur=6848) CALCIUM, [id number] 07:43:00 Test Item Value Reference Range Comments CALCIUM IONIZED (BEAKER) (test qemn=648) 1.14 mmol/L 1.12-1.27 PH, BLOOD (BEAKER) (test kkfd=1931) 7.52 [id number] 06:11:00 Test Item Value Reference Range Comments PHOSPHORUS (BEAKER) (test vdeg=289) 2.5 mg/dL 2.3-4.7 [id number] 06:11:00 Test Item Value Reference Range Comments MAGNESIUM (BEAKER) (test gdun=113) 1.7 mg/dL 1.6-2.6 COMPREHENSIVE METABOLIC [id number] 06:11:00 Test Item Value Reference Range Comments TOTAL PROTEIN (BEAKER) 5.6 gm/dL 6.0-8.3 (test zhis=327) ALBUMIN (BEAKER) (test 3.6 g/dL 3.5-5.0 xgua=4334) ALKALINE PHOSPHATASE 68 U/L 40-150 (BEAKER) (test qqwx=078) BILIRUBIN TOTAL (BEAKER) 2.7 mg/dL 0.2-1.2 (test gotz=229) SODIUM (BEAKER) (test 132 meq/L 136-145 iqoo=088) POTASSIUM (BEAKER) (test 4.9 meq/L 3.5-5.1 rqio=647) CHLORIDE (BEAKER) (test 102 meq/L 98-107 fbiq=263) CO2 (BEAKER) (test 24 meq/L 22-29 apyf=963) BLOOD UREA NITROGEN 20 mg/dL 7-21 (BEAKER) (test mnjo=029) CREATININE (BEAKER) (test 1.17 mg/dL 0.57-1.25 hnud=221) GLUCOSE RANDOM (BEAKER) 92 mg/dL 70-105 (test ivmc=933) CALCIUM (BEAKER) (test 9.7 mg/dL 8.4-10.2 jyxi=752) AST (SGOT) (BEAKER) (test 16 U/L 5-34 rwlu=886) ALT (SGPT) (BEAKER) (test 8 U/L 6-55 msds=479) EGFR (BEAKER) (test 65 mL/min/1.73 sq m ESTIMATED GFR IS NOT ahea=1854) ACCURATE CREATININE CLEARANCE IN PREDICTING GLOMERULAR FILTRATION RATE. ESTIMATED GFR IS NOT APPLICABLE FOR DIALYSIS PATIENTS. Specimen slightly ictericPROTHROMBIN TIME/[id number] 06:00:00 Test Item Value Reference Range Comments PROTIME (TUNG) (test ffcf=155) 24.0 seconds 11.7-14.7 INR (TUNG) (test yett=900) 2.2 <=5.9 RECOMMENDED COUMADIN/WARFARIN INR THERAPY RANGESSTANDARD DOSE: 2.0 - 3.0 Includes: PROPHYLAXIS forvenous thrombosis, systemic embolization; TREATMENT for venous thrombosis and/or pulmonary embolus.HIGH RISK: Target INR is 2.5-3.5 for patients with mechanical heart valves.CT, CHEST, WITHOUT [id number] 19:24:00FINAL REPORT HISTORY: Lung nodule, >=1cm COMPARISON [...] Verified Date/Time: 12/31/2017 19:24:12 Reading Location: [facility] [id number] Consult Reading Room 07: 24 PMPERIPHERAL BLOOD SMEAR - HOLD [id number] 19:18:00 Test Item Value Reference Range Comments PERIPHERAL SMEAR SAVE (BEAKER) prepared and saved smear, (test ciel=9649) 12/31/17 RETICULOCYTE [id number] 19:14:00 Test Item Value Reference Range Comments RETICULOCYTE COUNT PCT (BEAKER) (test foqp=987) 3.5 % 0.5-1.8 LACTATE DEHYDROGENASE (LDH)2017-12-31 17:47:00 Test Item Value Reference Range Comments LACTATE DEHYDROGENASE (BEAKER) (test etfj=964) 112 U/L 125-220 BLOOD GAS, [id number] 17:27:00 Test Item Value Reference Range Comments PH ARTERIAL (BEAKER) (test itpc=194) 7.45 7.35-7.45 PCO2 ARTERIAL (BEAKER) (test ysbj=990) 36 mmHg 35-45 PO2 ARTERIAL (BEAKER) (test qizm=429) 76 mmHg 80-90 O2 SATURATION ARTERIAL (BEAKER) (test oury=386) 96.1 % 96.0-97.0 HCO3 ARTERIAL (BEAKER) (test pcir=770) 24 mmol/L 21-29 BASE EXCESS ARTERIAL (BEAKER) (test gclz=431) 0.2 mmol/L -2.0-3.0 PATIENT TEMPERATURE (BEAKER) (test aroz=9346) 36.4 C FIO2 (BEAKER) (test rkud=6599) 21.0 % MYOCARD IMAGING, MULTI, PHARM, [id number] 15:12:00FINAL REPORT PROCEDURE: Rest/Stress MYOCARDIAL PERFUSION SPECT with regadenoson\\XA9\\ CPT CODE: 73968 INDICATION: Liver transplant evaluation HISTORY: Cardiac risk [...] tracer distribution. 6. No previous [facility] study for comparison. NONINVASIVE RISK STRATIFICATION: The above findings are considered low risk (<1% annual mortality rate) based on the following criterion:- Normal orsmall myocardial perfusion defect at rest or with stress(JACC. 2012;59(9):857-81.) Signed: Quinten Napier Verified Date/Time: 12/31/2017 15:12:03 Reading Location: [address] P327[facility] Reading Room BILIRUBIN, [id number] 14:10:00 Test Item Value Reference Range Comments BILIRUBIN DIRECT (BEAKER) (test ejil=454) 1.6 mg/dL 0.1-0.5 HEMOGLOBIN AND [id number] 13:22:00 Test Item Value Reference Range Comments HEMOGLOBIN (BEAKER) (test kafa=798) 7.3 GM/DL 13.7-17.5 HEMATOCRIT (BEAKER) (test ndfg=477) 21.9 % 40.1-51.0 CBC W/PLT COUNT & AUTO [id number] 11:06:00 Test Item Value Reference Range Comments WHITE BLOOD CELL COUNT (BEAKER) (test hgeo=811) 2.2 K/ L 3.5-10.5 RED BLOOD CELL COUNT (BEAKER) (test kdut=980) 2.07 M/ L 4.63-6.08 HEMOGLOBIN (BEAKER) (test mpcf=462) 6.8 GM/DL 13.7-17.5 HEMATOCRIT (BEAKER) (test mlid=340) 19.6 % 40.1-51.0 MEAN CORPUSCULAR VOLUME (BEAKER) (test grgx=340) 94.7 fL 79.0-92.2 MEAN CORPUSCULAR HEMOGLOBIN (BEAKER) (test 32.9 pg 25.7-32.2 uutr=559) MEAN CORPUSCULAR HEMOGLOBIN CONC (BEAKER) (test 34.7 GM/DL 32.3-36.5 dfbm=447) RED CELL DISTRIBUTION WIDTH (BEAKER) (test 16.9 % 11.6-14.4 uqbs=731) PLATELET COUNT (BEAKER) (test doon=473) 47 K/CU MM 150-450 MEAN PLATELET VOLUME (BEAKER) (test rnnw=693) 9.7 fL 9.4-12.4 NUCLEATED RED BLOOD CELLS (BEAKER) (test 0 /100 WBC 0-0 ljbv=749) NEUTROPHILS RELATIVE PERCENT (BEAKER) (test 54 % hefp=770) LYMPHOCYTES RELATIVE PERCENT (BEAKER) (test 17 % gjff=888) MONOCYTES RELATIVE PERCENT (BEAKER) (test 21 % tfuo=010) EOSINOPHILS RELATIVE PERCENT (BEAKER) (test 8 % zslh=194) BASOPHILS RELATIVE PERCENT (BEAKER) (test 1 % mwvk=556) NEUTROPHILS ABSOLUTE COUNT (BEAKER) (test 1.17 K/ L 1.78-5.38 ocaz=055) LYMPHOCYTES ABSOLUTE COUNT (BEAKER) (test 0.36 K/ L 1.32-3.57 cxuj=926) MONOCYTES ABSOLUTE COUNT (BEAKER) (test fbup=914) 0.45 K/ L 0.30-0.82 EOSINOPHILS ABSOLUTE COUNT (BEAKER) (test 0.17 K/ L 0.04-0.54 zxad=623) BASOPHILS ABSOLUTE COUNT (BEAKER) (test wcbo=184) 0.01 K/ L 0.01-0.08 IMMATURE GRANULOCYTES-RELATIVE PERCENT (BEAKER) 1 % 0-1 (test rpur=9434) (MANUAL DIFFERENTIAL)2017-12-31 11:06:00 Test Item Value Reference Range Comments TOTAL COUNTED (BEAKER) (test srms=2701) [id number] 08:37:00 Test Item Value Reference Range Comments PROTIME (BEAKER) (test tscl=707) 24.0 seconds 11.7-14.7 INR (BEAKER) (test mutl=943) 2.2 <=5.9 PARTIAL THROMBOPLASTIN TIME (BEAKER) (test 55.2 seconds 22.5-36.0 ohoq=576) RECOMMENDED COUMADIN/WARFARIN INR THERAPY RANGESSTANDARD DOSE: 2.0 - 3.0 Includes: PROPHYLAXIS forvenous thrombosis, systemic embolization; TREATMENT for venous thrombosis and/or pulmonary embolus.HIGH RISK: Target INR is 2.5-3.5 for patients with mechanical heart valves.COMPREHENSIVE METABOLIC [id number] 06:37:00 Test Item Value Reference Range Comments TOTAL PROTEIN (BEAKER) 5.7 gm/dL 6.0-8.3 (test rjnz=884) ALBUMIN (BEAKER) (test 3.7 g/dL 3.5-5.0 qhuf=5779) ALKALINE PHOSPHATASE 70 U/L 40-150 (BEAKER) (test rgsw=331) BILIRUBIN TOTAL (BEAKER) 2.6 mg/dL 0.2-1.2 (test dgrx=706) SODIUM (BEAKER) (test 130 meq/L 136-145 gmki=871) POTASSIUM (BEAKER) (test 5.2 meq/L 3.5-5.1 yigd=980) CHLORIDE (BEAKER) (test 100 meq/L 98-107 ciuh=137) CO2 (BEAKER) (test 25 meq/L 22-29 bnqj=175) BLOOD UREA NITROGEN 20 mg/dL 7-21 (BEAKER) (test jadt=818) CREATININE (BEAKER) (test 1.08 mg/dL 0.57-1.25 ikki=925) GLUCOSE RANDOM (BEAKER) 91 mg/dL 70-105 (test kkno=072) CALCIUM (BEAKER) (test 9.6 mg/dL 8.4-10.2 imko=055) AST (SGOT) (BEAKER) (test 16 U/L 5-34 vhvd=294) ALT (SGPT) (BEAKER) (test 6 U/L 6-55 lufb=338) EGFR (BEAKER) (test 72 mL/min/1.73 sq m ESTIMATED GFR IS NOT xncd=2753) ACCURATE CREATININE CLEARANCE IN PREDICTING GLOMERULAR FILTRATION RATE. ESTIMATED GFR IS NOT APPLICABLE FOR DIALYSIS PATIENTS. Specimen slightly [id number] 06:01:00 Test Item Value Reference Range Comments RPR SCREEN (BEAKER) (test xcyy=662) Nonreactive Nonreactive CRYPTOCOCCAL [id number] 05:59:00 Test Item Value Reference Range Comments CRYPTOCOCCAL ANTIGEN, SERUM (BEAKER) (test Negative Negative, Interference udba=4561) RAD, MANDIBLE, MIN 4 [id number] 01:37:00Reason for exam:->liver transplant evalShould this be [...] Barcenas Verified Date/Time: 12/31/2017 01:37:57 Reading Location: [address] Reading Room Electronically signed by: SLICK BARCENAS M.D. on 04/2018 01:37 AMRAD, CHEST, 2 [id number] 23:32:00Reason for exam:-> liver transplant evalShould this [...] MDReport Verified Date/Time: 12/30/2017 23:32:31 Reading Location: [address] Reading Room HEMOGLOBIN [id number] 22:54:00 Test Item Value Reference Range Comments HEMOGLOBIN A1C (BEAKER) (test eqji=040) 4.1 % 4.3-6.1 HEPATITIS B SURFACE [id number] 16:31:00 Test Item Value Reference Range Comments HEPATITIS B SURFACE ANTIBODY (BEAKER) (test < mIU/mL <8.0 upvj=740) HEPATITIS B SURFACE [id number] 16:29:00 Test Item Value Reference Range Comments HEPATITIS B SURFACE ANTIGEN (2) (BEAKER) (test Nonreactive Nonreactive quqw=2731) HEPATITIS B CORE ANTIBODY, [id number] 16:29:00 Test Item Value Reference Range Comments HEPATITIS B CORE IGM ANTIBODY (BEAKER) (test Nonreactive Nonreactive updl=866) HEPATITIS A ANTIBODY, [id number] 16:29:00 Test Item Value Reference Range Comments HEPATITIS A IGM ANTIBODY (BEAKER) (test Nonreactive Nonreactive enei=165) HEPATITIS B CORE ANTIBODY, [id number] 16:29:00 Test Item Value Reference Range Comments HEPATITIS B CORE TOTAL ANTIBODY (BEAKER) (test Nonreactive Nonreactive leqj=682) [id number] 16:26:00 Test Item Value Reference Range Comments T4 TOTAL (BEAKER) (test qizm=836) 3.5 ug/dL 4.9-11.7 [id number] 16:26:00 Test Item Value Reference Range Comments T3 TOTAL (BEAKER) (test zchc=926) 42 ng/dL 48-159 [id number] 16:24:00 Test Item Value Reference Range Comments FERRITIN (BEAKER) (test twxa=221) 1460 ng/mL 5-275 VITAMIN D, [id number] 16:24:00 Test Item Value Reference Range Comments VITAMIN D 25-OH (BEAKER) (test hmob=6161) 6.9 ng/mL 6.6-49.9 Effective 08/06/2017: Reference Range ChangeNew: 6.6-49.9 ng/mL Previous: 13.0 -47.8 ng/mLRecommended Vitamin D Target Range: 30.0-40.0 ng/[id number] 16: 24:00 Test Item Value Reference Range Comments THYROID STIMULATING HORMONE (BEAKER) (test 1.55 uIU/mL 0.35-4.94 idvy=940) CARCINOEMBRYONIC ANTIGEN (CEA)2017-12-30 16:24:00 Test Item Value Reference Range Comments CARCINOEMBRYONIC ANTIGEN (BEAKER) (test vxyc=991) 3.0 ng/mL 0.0-5.0 [id number] 16:23:00 Test Item Value Reference Range Comments PROSTATE SPECIFIC ANTIGEN (BEAKER) (test bphz=561) 0.1 ng/mL 0.0-4.0 HIV-1 ANTIGEN WITH HIV-1/2 [id number] 16:23:00 Test Item Value Reference Range Comments HIV-1 ANTIGEN WITH HIV 1\\T\\2 ANTIBODY (2) Nonreactive Nonreactive (BEAKER) (test pqke=0921) HEPATITIS C [id number] 16:23:00 Test Item Value Reference Range Comments HEPATITIS C ANTIBODY (BEAKER) (test fewx=621) Nonreactive Nonreactive LIPID [id number] 16:06:00 Test Item Value Reference Range Comments TRIGLYCERIDES (BEAKER) (test drwy=944) 38 mg/dL CHOLESTEROL (BEAKER) (test mjcb=599) 51 mg/dL HDL CHOLESTEROL (BEAKER) (test khwi=277) 10 mg/dL LDL CHOLESTEROL CALCULATED (BEAKER) (test mqkj=443) 33 mg/dL Triglyceride Reference Range: Low Risk [...] Value Reference Range Comments IRON (BEAKER) (test luje=218) 90 ug/dL 40-160 TOTAL IRON BINDING CAPACITY (BEAKER) (test 85 ug/dL 250-450 txop=895) IRON % SATURATION (2) (BEAKER) (test pcxy=4354) 106 % 20-55 [id number] 16:04:00 Test Item Value Reference Range Comments TRANSFERRIN (BEAKER) (test pmuv=810) 65 mg/dL 174-382 Specimen slightly ictericURIC [id number] 16:02:00 Test Item Value Reference Range Comments URIC ACID (BEAKER) (test pcgg=128) 8.5 mg/dL 2.6-7.2 Specimen slightly [id number] 15:50:00 Test Item Value Reference Range Comments FIBRINOGEN LEVEL (BEAKER) (test ultu=822) 161 mg/dl 225-434 BODY FLUID CULTURE + GRAM [id number] 11:45:00 Test Item Value Reference Range Comments CULTURE (BEAKER) (test rypn=2918) No growth GRAM STAIN RESULT (BEAKER) (test No WBCs blgp=7668) GRAM STAIN RESULT (BEAKER) (test No organisms seen oeyz=06580) CBC W/PLT COUNT & AUTO [id number] 08:05:00 Test Item Value Reference Range Comments WHITE BLOOD CELL COUNT (BEAKER) (test wrfz=881) 2.0 K/ L 3.5-10.5 RED BLOOD CELL COUNT (BEAKER) (test lpke=590) 2.20 M/ L 4.63-6.08 HEMOGLOBIN (BEAKER) (test vbgp=779) 7.1 GM/DL 13.7-17.5 HEMATOCRIT (BEAKER) (test mrgg=458) 20.8 % 40.1-51.0 MEAN CORPUSCULAR VOLUME (BEAKER) (test uege=850) 94.5 fL 79.0-92.2 MEAN CORPUSCULAR HEMOGLOBIN (BEAKER) (test 32.3 pg 25.7-32.2 xwie=882) MEAN CORPUSCULAR HEMOGLOBIN CONC (BEAKER) (test 34.1 GM/DL 32.3-36.5 uwkh=434) RED CELL DISTRIBUTION WIDTH (BEAKER) (test 17.0 % 11.6-14.4 komo=254) PLATELET COUNT (BEAKER) (test wkfv=897) 52 K/CU MM 150-450 MEAN PLATELET VOLUME (BEAKER) (test irlb=124) 10.7 fL 9.4-12.4 NUCLEATED RED BLOOD CELLS (BEAKER) (test 0 /100 WBC 0-0 fcry=746) NEUTROPHILS RELATIVE PERCENT (BEAKER) (test 55 % qgxr=958) LYMPHOCYTES RELATIVE PERCENT (BEAKER) (test 16 % stwl=990) MONOCYTES RELATIVE PERCENT (BEAKER) (test 20 % mgfo=811) EOSINOPHILS RELATIVE PERCENT (BEAKER) (test 8 % lscj=391) BASOPHILS RELATIVE PERCENT (BEAKER) (test 1 % smkh=327) NEUTROPHILS ABSOLUTE COUNT (BEAKER) (test 1.10 K/ L 1.78-5.38 njxn=667) LYMPHOCYTES ABSOLUTE COUNT (BEAKER) (test 0.32 K/ L 1.32-3.57 qjaa=167) MONOCYTES ABSOLUTE COUNT (BEAKER) (test yvfm=445) 0.40 K/ L 0.30-0.82 EOSINOPHILS ABSOLUTE COUNT (BEAKER) (test 0.16 K/ L 0.04-0.54 ovhx=117) BASOPHILS ABSOLUTE COUNT (BEAKER) (test ybiq=517) 0.01 K/ L 0.01-0.08 IMMATURE GRANULOCYTES-RELATIVE PERCENT (BEAKER) 1 % 0-1 (test ytfx=0159) (MANUAL DIFFERENTIAL)2017-12-30 08:05:00 Test Item Value Reference Range Comments TOTAL COUNTED (BEAKER) (test qajw=6403) URINALYSIS W/ [id number] 06:46:00 Test Item Value Reference Range Comments COLOR (BEAKER) (test mfzn=429) Yellow CLARITY (BEAKER) (test wsuj=882) Clear SPECIFIC GRAVITY UA (BEAKER) (test oubu=836) 1.008 1.001-1.035 PH UA (BEAKER) (test vymu=602) 6.0 5.0-8.0 PROTEIN UA (BEAKER) (test cbmm=406) Negative Negative GLUCOSE UA (BEAKER) (test tkzb=515) Negative Negative KETONES UA (BEAKER) (test ajqk=889) Negative Negative BILIRUBIN UA (BEAKER) (test yxgn=188) Negative Negative BLOOD UA (BEAKER) (test kibd=534) Negative Negative NITRITE UA (BEAKER) (test wbkj=005) Negative Negative LEUKOCYTE ESTERASE UA (BEAKER) (test hmcm=945) Negative Negative UROBILINOGEN UA (BEAKER) (test nnwf=174) 0.2 mg/dL 0.2-1.0 RBC UA (BEAKER) (test pwzr=575) 0 /HPF WBC UA (BEAKER) (test okce=863) 0 /HPF HYALINE CASTS (BEAKER) (test maxi=127) 5 /LPF SOURCE(BEAKER) (test xjxg=2049) Urine, Voided SODIUM, RANDOM [id number] 06:35:00 Test Item Value Reference Range Comments SODIUM URINE (BEAKER) (test eybn=605) < meq/L Reference Range: No NormalsPROTEIN, RANDOM [id number] 06:35:00 Test Item Value Reference Range Comments PROTEIN, URINE (BEAKER) (test gesn=1682) < mg/dL 0-14 [id number] 06:21:00 Test Item Value Reference Range Comments MAGNESIUM (BEAKER) (test 1.8 mg/dL 1.6-2.6 Specimen slightly hemolyzed hnsh=177) [id number] 06:21:00 Test Item Value Reference Range Comments PHOSPHORUS (BEAKER) (test 2.9 mg/dL 2.3-4.7 Specimen slightly hemolyzed bzet=496) COMPREHENSIVE METABOLIC [id number] 06:21:00 Test Item Value Reference Range Comments TOTAL PROTEIN (BEAKER) 5.6 gm/dL 6.0-8.3 Specimen slightly (test vhae=109) hemolyzed ALBUMIN (BEAKER) (test 3.5 g/dL 3.5-5.0 Specimen slightly cwbf=5178) hemolyzed ALKALINE PHOSPHATASE 75 U/L 40-150 (BEAKER) (test phra=540) BILIRUBIN TOTAL (BEAKER) 3.0 mg/dL 0.2-1.2 Specimen slightly (test crgi=628) hemolyzed SODIUM (BEAKER) (test 127 meq/L 136-145 uejc=918) POTASSIUM (BEAKER) (test 5.2 meq/L 3.5-5.1 Specimen slightly luzu=107) hemolyzed CHLORIDE (BEAKER) (test 97 meq/L 98-107 rzqr=766) CO2 (BEAKER) (test 24 meq/L 22-29 rndw=249) BLOOD UREA NITROGEN 22 mg/dL 7-21 (BEAKER) (test bidn=235) CREATININE (BEAKER) (test 1.11 mg/dL 0.57-1.25 Specimen slightly zusx=809) hemolyzed GLUCOSE RANDOM (BEAKER) 94 mg/dL 70-105 (test vacq=861) CALCIUM (BEAKER) (test 9.4 mg/dL 8.4-10.2 aeuw=172) AST (SGOT) (BEAKER) (test 22 U/L 5-34 Specimen slightly nlbs=665) hemolyzed ALT (SGPT) (BEAKER) (test 7 U/L 6-55 Specimen slightly ipgo=989) hemolyzed EGFR (BEAKER) (test 70 mL/min/1.73 sq m ESTIMATED GFR IS NOT egac=3466) ACCURATE CREATININE CLEARANCE IN PREDICTING GLOMERULAR FILTRATION RATE. ESTIMATED GFR IS NOT APPLICABLE FOR DIALYSIS PATIENTS. Specimen slightly ictericCREATININE, RANDOM [id number] 06:19:00 Test Item Value Reference Range Comments CREATININE URINE (BEAKER) (test xrnu=162) 60.6 mg/dL Reference Range: No [id number] 13:43:00 Test Item Value Reference Range Comments ETHANOL (BEAKER) (test asqu=684) < mg/dL <=10 COMPREHENSIVE METABOLIC [id number] 08:23:00 Test Item Value Reference Range Comments TOTAL PROTEIN (BEAKER) 5.5 gm/dL 6.0-8.3 (test cymj=815) ALBUMIN (BEAKER) (test 3.3 g/dL 3.5-5.0 jtpb=0786) ALKALINE PHOSPHATASE 85 U/L 40-150 (BEAKER) (test mouf=323) BILIRUBIN TOTAL (BEAKER) 3.8 mg/dL 0.2-1.2 (test nusj=519) SODIUM (BEAKER) (test 125 meq/L 136-145 zdxy=467) POTASSIUM (BEAKER) (test 4.7 meq/L 3.5-5.1 rksu=954) CHLORIDE (BEAKER) (test 96 meq/L 98-107 vcff=739) CO2 (BEAKER) (test 21 meq/L 22-29 crwt=674) BLOOD UREA NITROGEN 22 mg/dL 7-21 (BEAKER) (test fadw=934) CREATININE (BEAKER) (test 1.26 mg/dL 0.57-1.25 hybr=102) GLUCOSE RANDOM (BEAKER) 95 mg/dL 70-105 (test zauo=546) CALCIUM (BEAKER) (test 9.1 mg/dL 8.4-10.2 yofx=870) AST (SGOT) (BEAKER) (test 20 U/L 5-34 fnya=896) ALT (SGPT) (BEAKER) (test 8 U/L 6-55 pyik=935) EGFR (BEAKER) (test 60 mL/min/1.73 sq m ESTIMATED GFR IS NOT okgy=6786) ACCURATE CREATININE CLEARANCE IN PREDICTING GLOMERULAR FILTRATION RATE. ESTIMATED GFR IS NOT APPLICABLE FOR DIALYSIS PATIENTS. Specimen slightly ictericCBC W/PLT COUNT & AUTO [id number] 07:17 :00 Test Item Value Reference Range Comments WHITE BLOOD CELL COUNT (BEAKER) (test clyu=488) 2.8 K/ L 3.5-10.5 RED BLOOD CELL COUNT (BEAKER) (test azqx=601) 2.28 M/ L 4.63-6.08 HEMOGLOBIN (BEAKER) (test dojs=688) 7.3 GM/DL 13.7-17.5 HEMATOCRIT (BEAKER) (test wzzo=532) 21.4 % 40.1-51.0 MEAN CORPUSCULAR VOLUME (BEAKER) (test aleb=250) 93.9 fL 79.0-92.2 MEAN CORPUSCULAR HEMOGLOBIN (BEAKER) (test 32.0 pg 25.7-32.2 lxju=191) MEAN CORPUSCULAR HEMOGLOBIN CONC (BEAKER) (test 34.1 GM/DL 32.3-36.5 zlma=762) RED CELL DISTRIBUTION WIDTH (BEAKER) (test 16.9 % 11.6-14.4 dnxa=837) PLATELET COUNT (BEAKER) (test igjb=434) 52 K/CU MM 150-450 MEAN PLATELET VOLUME (BEAKER) (test pehj=769) 9.8 fL 9.4-12.4 NUCLEATED RED BLOOD CELLS (BEAKER) (test 0 /100 WBC 0-0 ndqp=292) NEUTROPHILS RELATIVE PERCENT (BEAKER) (test 61 % tvkh=985) LYMPHOCYTES RELATIVE PERCENT (BEAKER) (test 14 % auko=522) MONOCYTES RELATIVE PERCENT (BEAKER) (test 18 % lvhp=637) EOSINOPHILS RELATIVE PERCENT (BEAKER) (test 7 % rusl=054) BASOPHILS RELATIVE PERCENT (BEAKER) (test 0 % wqpy=372) NEUTROPHILS ABSOLUTE COUNT (BEAKER) (test 1.69 K/ L 1.78-5.38 mubq=050) LYMPHOCYTES ABSOLUTE COUNT (BEAKER) (test 0.38 K/ L 1.32-3.57 tton=877) MONOCYTES ABSOLUTE COUNT (BEAKER) (test ajwd=654) 0.51 K/ L 0.30-0.82 EOSINOPHILS ABSOLUTE COUNT (BEAKER) (test 0.18 K/ L 0.04-0.54 jzkn=905) BASOPHILS ABSOLUTE COUNT (BEAKER) (test xpcr=233) 0.01 K/ L 0.01-0.08 IMMATURE GRANULOCYTES-RELATIVE PERCENT (BEAKER) 1 % 0-1 (test ougb=7872) CT, [id number] 22:20:00FINAL REPORT EXAM: CT of the abdomen [...] MDReport Verified Date/Time: 12/28/2017 22:20:52 Reading Location: [address] Transitional Reading Room CBC W/PLT COUNT & AUTO [id number] 18:06:00 Test Item Value Reference Range Comments WHITE BLOOD CELL COUNT (BEAKER) (test nwrs=733) 2.9 K/ L 3.5-10.5 RED BLOOD CELL COUNT (BEAKER) (test jyzd=791) 2.03 M/ L 4.63-6.08 HEMOGLOBIN (BEAKER) (test vnlz=830) 6.5 GM/DL 13.7-17.5 HEMATOCRIT (BEAKER) (test pkck=247) 19.2 % 40.1-51.0 MEAN CORPUSCULAR VOLUME (BEAKER) (test sznc=603) 94.6 fL 79.0-92.2 MEAN CORPUSCULAR HEMOGLOBIN (BEAKER) (test 32.0 pg 25.7-32.2 ylbn=303) MEAN CORPUSCULAR HEMOGLOBIN CONC (BEAKER) (test 33.9 GM/DL 32.3-36.5 ujsz=901) RED CELL DISTRIBUTION WIDTH (BEAKER) (test 17.6 % 11.6-14.4 oxwk=228) PLATELET COUNT (BEAKER) (test pkok=713) 46 K/CU MM 150-450 MEAN PLATELET VOLUME (BEAKER) (test xhvg=336) 9.3 fL 9.4-12.4 NUCLEATED RED BLOOD CELLS (BEAKER) (test 0 /100 WBC 0-0 bsqq=376) NEUTROPHILS RELATIVE PERCENT (BEAKER) (test 66 % yrrx=006) LYMPHOCYTES RELATIVE PERCENT (BEAKER) (test 12 % saco=305) MONOCYTES RELATIVE PERCENT (BEAKER) (test 15 % avfb=233) EOSINOPHILS RELATIVE PERCENT (BEAKER) (test 6 % ubph=652) BASOPHILS RELATIVE PERCENT (BEAKER) (test 0 % dteu=488) NEUTROPHILS ABSOLUTE COUNT (BEAKER) (test 1.92 K/ L 1.78-5.38 wvps=949) LYMPHOCYTES ABSOLUTE COUNT (BEAKER) (test 0.36 K/ L 1.32-3.57 uodr=538) MONOCYTES ABSOLUTE COUNT (BEAKER) (test jajp=648) 0.44 K/ L 0.30-0.82 EOSINOPHILS ABSOLUTE COUNT (BEAKER) (test 0.16 K/ L 0.04-0.54 ihsy=636) BASOPHILS ABSOLUTE COUNT (BEAKER) (test komw=203) 0.01 K/ L 0.01-0.08 IMMATURE GRANULOCYTES-RELATIVE PERCENT (BEAKER) 1 % 0-1 (test mzqj=6882) CBC W/PLT COUNT & AUTO [id number] 12:30:00 Test Item Value Reference Range Comments WHITE BLOOD CELL COUNT (BEAKER) (test nuwf=633) 3.1 K/ L 3.5-10.5 RED BLOOD CELL COUNT (BEAKER) (test jicr=609) 2.09 M/ L 4.63-6.08 HEMOGLOBIN (BEAKER) (test lyjk=260) 6.8 GM/DL 13.7-17.5 HEMATOCRIT (BEAKER) (test dfdg=956) 19.9 % 40.1-51.0 MEAN CORPUSCULAR VOLUME (BEAKER) (test vhdv=495) 95.2 fL 79.0-92.2 MEAN CORPUSCULAR HEMOGLOBIN (BEAKER) (test 32.5 pg 25.7-32.2 bitt=977) MEAN CORPUSCULAR HEMOGLOBIN CONC (BEAKER) (test 34.2 GM/DL 32.3-36.5 oaeb=794) RED CELL DISTRIBUTION WIDTH (BEAKER) (test 17.5 % 11.6-14.4 yrvc=704) PLATELET COUNT (BEAKER) (test nivn=313) 65 K/CU MM 150-450 MEAN PLATELET VOLUME (BEAKER) (test cspo=707) 10.6 fL 9.4-12.4 NUCLEATED RED BLOOD CELLS (BEAKER) (test 0 /100 WBC 0-0 iphp=836) NEUTROPHILS RELATIVE PERCENT (BEAKER) (test 60 % htax=809) LYMPHOCYTES RELATIVE PERCENT (BEAKER) (test 14 % kret=309) MONOCYTES RELATIVE PERCENT (BEAKER) (test 17 % qcex=630) EOSINOPHILS RELATIVE PERCENT (BEAKER) (test 8 % kwvx=693) BASOPHILS RELATIVE PERCENT (BEAKER) (test 0 % nmcn=408) NEUTROPHILS ABSOLUTE COUNT (BEAKER) (test 1.85 K/ L 1.78-5.38 zsrv=383) LYMPHOCYTES ABSOLUTE COUNT (BEAKER) (test 0.42 K/ L 1.32-3.57 ekiv=448) MONOCYTES ABSOLUTE COUNT (BEAKER) (test okrd=633) 0.52 K/ L 0.30-0.82 EOSINOPHILS ABSOLUTE COUNT (BEAKER) (test 0.26 K/ L 0.04-0.54 nbya=885) BASOPHILS ABSOLUTE COUNT (BEAKER) (test nqdb=580) 0.01 K/ L 0.01-0.08 IMMATURE GRANULOCYTES-RELATIVE PERCENT (BEAKER) 1 % 0-1 (test fige=1255) U/S, [id number] 06:59:00Limit fluid removal to no more than 5 litersReason for exam:->ascites, concern for sbpShould thisbe performed at the bedside?->NoFINAL REPORT Paracentesis dated 2017 Procedure: Ultrasound-guided paracentesis. Preprocedure diagnosis: Ascites Postprocedure diagnosis: Ascites Conscious sedation: None. Radiologist: Lena Lynn M.D. Flume Worker: None Anesthesia: 1% Xylocaine mixed with sodium bicarbonate local anesthesia. Technique: After obtaining informed consent, ultrasound-guided paracentesis was performed under usual sterile technique. Using a 5 czech drainage catheter, puncture was made in the right lower quadrant abdomen. Approximately 5000 cc of serous fluid was removed. Patient tolerated the procedure well without complication. Complication: None Graft/ Implant: None Estimated Blood Loss: NoneImpression: Ultrasound-guided paracentesis. Signed: Lena Lynn MDReport Verified Date/Time: 12/28/2017 06:59 :16 Reading Location: [facility] B1 C013Y CT Body Reading Room ALPHA FETOPROTEIN (AFP), TUMOR [id number] 06:22:00 Test Item Value Reference Range Comments ALPHA-FETOPROTEIN (BEAKER) (test wwgs=9566) 4.1 ng/mL <10.0 COMPREHENSIVE METABOLIC [id number] 06:00:00 Test Item Value Reference Range Comments TOTAL PROTEIN (BEAKER) 5.3 gm/dL 6.0-8.3 (test ndai=631) ALBUMIN (BEAKER) (test 2.7 g/dL 3.5-5.0 obfr=3985) ALKALINE PHOSPHATASE 94 U/L 40-150 (BEAKER) (test fexs=816) BILIRUBIN TOTAL (BEAKER) 3.7 mg/dL 0.2-1.2 (test mcbt=967) SODIUM (BEAKER) (test 124 meq/L 136-145 msao=695) POTASSIUM (BEAKER) (test 4.6 meq/L 3.5-5.1 dtde=101) CHLORIDE (BEAKER) (test 96 meq/L 98-107 rmzv=175) CO2 (BEAKER) (test 22 meq/L 22-29 fluj=508) BLOOD UREA NITROGEN 22 mg/dL 7-21 (BEAKER) (test pxev=239) CREATININE (BEAKER) (test 1.40 mg/dL 0.57-1.25 apab=566) GLUCOSE RANDOM (BEAKER) 89 mg/dL 70-105 (test itpc=847) CALCIUM (BEAKER) (test 8.8 mg/dL 8.4-10.2 eadg=256) AST (SGOT) (BEAKER) (test 25 U/L 5-34 pgyk=314) ALT (SGPT) (BEAKER) (test 10 U/L 6-55 pejn=730) EGFR (BEAKER) (test 53 mL/min/1.73 sq m ESTIMATED GFR IS NOT rnre=4716) ACCURATE CREATININE CLEARANCE IN PREDICTING GLOMERULAR FILTRATION RATE. ESTIMATED GFR IS NOT APPLICABLE FOR DIALYSIS PATIENTS. Specimen slightly ictericCBC W/PLT COUNT & AUTO [id number] 05:50 :00 Test Item Value Reference Range Comments WHITE BLOOD CELL COUNT (BEAKER) (test ytnr=508) 3.1 K/ L 3.5-10.5 RED BLOOD CELL COUNT (BEAKER) (test stgz=863) 2.00 M/ L 4.63-6.08 HEMOGLOBIN (BEAKER) (test yvzn=957) 6.4 GM/DL 13.7-17.5 HEMATOCRIT (BEAKER) (test iycu=061) 18.9 % 40.1-51.0 MEAN CORPUSCULAR VOLUME (BEAKER) (test fmww=139) 94.5 fL 79.0-92.2 MEAN CORPUSCULAR HEMOGLOBIN (BEAKER) (test 32.0 pg 25.7-32.2 vlxn=056) MEAN CORPUSCULAR HEMOGLOBIN CONC (BEAKER) (test 33.9 GM/DL 32.3-36.5 pyor=996) RED CELL DISTRIBUTION WIDTH (BEAKER) (test 17.9 % 11.6-14.4 ckxa=906) PLATELET COUNT (BEAKER) (test blzz=724) 59 K/CU MM 150-450 MEAN PLATELET VOLUME (BEAKER) (test biwy=417) 10.4 fL 9.4-12.4 NUCLEATED RED BLOOD CELLS (BEAKER) (test 0 /100 WBC 0-0 bbbv=822) NEUTROPHILS RELATIVE PERCENT (BEAKER) (test 63 % skqq=278) LYMPHOCYTES RELATIVE PERCENT (BEAKER) (test 14 % wuia=889) MONOCYTES RELATIVE PERCENT (BEAKER) (test 15 % quge=272) EOSINOPHILS RELATIVE PERCENT (BEAKER) (test 7 % wcjk=672) BASOPHILS RELATIVE PERCENT (BEAKER) (test 0 % bwot=183) NEUTROPHILS ABSOLUTE COUNT (BEAKER) (test 1.94 K/ L 1.78-5.38 yzvk=554) LYMPHOCYTES ABSOLUTE COUNT (BEAKER) (test 0.44 K/ L 1.32-3.57 oohf=631) MONOCYTES ABSOLUTE COUNT (BEAKER) (test wjqb=284) 0.47 K/ L 0.30-0.82 EOSINOPHILS ABSOLUTE COUNT (BEAKER) (test 0.21 K/ L 0.04-0.54 oliy=713) BASOPHILS ABSOLUTE COUNT (BEAKER) (test azpd=839) 0.01 K/ L 0.01-0.08 IMMATURE GRANULOCYTES-RELATIVE PERCENT (BEAKER) 1 % 0-1 (test bxgb=8389) BODY FLUID CELL COUNT WITH [id number] 20:39:00 Test Item Value Reference Range Comments APPEARANCE FLUID (BEAKER) (test qfnq=008) Slightly Hazy Clear COLOR FLUID (BEAKER) (test pqpw=429) Yellow Colorless, Straw RBC FLUID (BEAKER) (test gdna=335) 90 /cu mm <=1 ADJUSTED WBC FLUID (BEAKER) (test hnmn=1805) 47 /cu mm <=5 LINING CELLS (BEAKER) (test hhgp=0043) 3 /cu mm <=1 NEUTROPHILS FLUID (BEAKER) (test qlax=7712) 2 % LYMPHS FLUID (BEAKER) (test wslj=028) 19 % MONO/MACROPHAGE FLUID (BEAKER) (test 79 % olrv=218) EOSINOPHILS FLUID (BEAKER) (test oyzl=595) 0 % BASO FLUID (BEAKER) (test fali=211) 0 % CONTAINER BODY FLUID (BEAKER) (test EDTA Tube xevy=5345) ALBUMIN, BODY [id number] 20:14:00 Test Item Value Reference Range Comments ALBUMIN FLUID (BEAKER) (test btom=977) 0.4 gm/dL Reference Range: No Normals Assay performance has not been validated for this type of specimen.BASIC METABOLIC [id number] 10:31:00 Test Item Value Reference Range Comments SODIUM (BEAKER) (test 125 meq/L 136-145 ghki=853) POTASSIUM (BEAKER) (test 4.5 meq/L 3.5-5.1 qhbj=405) CHLORIDE (BEAKER) (test 98 meq/L 98-107 sfng=482) CO2 (BEAKER) (test 20 meq/L 22-29 ecbh=654) BLOOD UREA NITROGEN 22 mg/dL 7-21 (BEAKER) (test tcge=721) CREATININE (BEAKER) (test 1.45 mg/dL 0.57-1.25 tikw=146) GLUCOSE RANDOM (BEAKER) 87 mg/dL 70-105 (test xfby=181) CALCIUM (BEAKER) (test 8.6 mg/dL 8.4-10.2 lxap=728) EGFR (BEAKER) (test 51 mL/min/1.73 sq m ESTIMATED GFR IS NOT chsd=5678) ACCURATE CREATININE CLEARANCE IN PREDICTING GLOMERULAR FILTRATION RATE. ESTIMATED GFR IS NOT APPLICABLE FOR DIALYSIS PATIENTS. Specimen slightly ictericHEPATIC FUNCTION [id number] 10:31:00 Test Item Value Reference Range Comments TOTAL PROTEIN (BEAKER) (test lzda=901) 5.8 gm/dL 6.0-8.3 ALBUMIN (BEAKER) (test hvbf=6530) 2.4 g/dL 3.5-5.0 BILIRUBIN TOTAL (BEAKER) (test hwnc=952) 4.1 mg/dL 0.2-1.2 BILIRUBIN DIRECT (BEAKER) (test mfaf=971) 3.1 mg/dL 0.1-0.5 ALKALINE PHOSPHATASE (BEAKER) (test ywhf=473) 126 U/L 40-150 AST (SGOT) (BEAKER) (test dvvp=585) 28 U/L 5-34 ALT (SGPT) (BEAKER) (test pcdz=493) 13 U/L 6-55 Specimen slightly ictericCBC W/PLT COUNT & AUTO [id number] 10:09 :00 Test Item Value Reference Range Comments WHITE BLOOD CELL COUNT (BEAKER) (test mykg=697) 5.5 K/ L 3.5-10.5 RED BLOOD CELL COUNT (BEAKER) (test jrew=119) 2.56 M/ L 4.63-6.08 HEMOGLOBIN (BEAKER) (test suec=969) 8.1 GM/DL 13.7-17.5 HEMATOCRIT (BEAKER) (test rqtf=648) 24.2 % 40.1-51.0 MEAN CORPUSCULAR VOLUME (BEAKER) (test hflz=573) 94.5 fL 79.0-92.2 MEAN CORPUSCULAR HEMOGLOBIN (BEAKER) (test 31.6 pg 25.7-32.2 otfw=861) MEAN CORPUSCULAR HEMOGLOBIN CONC (BEAKER) (test 33.5 GM/DL 32.3-36.5 fyah=241) RED CELL DISTRIBUTION WIDTH (BEAKER) (test 18.6 % 11.6-14.4 tkko=196) PLATELET COUNT (BEAKER) (test lbfd=855) 86 K/CU MM 150-450 MEAN PLATELET VOLUME (BEAKER) (test simh=224) 9.7 fL 9.4-12.4 NUCLEATED RED BLOOD CELLS (BEAKER) (test 0 /100 WBC 0-0 wbme=532) NEUTROPHILS RELATIVE PERCENT (BEAKER) (test 65 % yppy=841) LYMPHOCYTES RELATIVE PERCENT (BEAKER) (test 13 % qjgh=810) MONOCYTES RELATIVE PERCENT (BEAKER) (test 14 % piyl=300) EOSINOPHILS RELATIVE PERCENT (BEAKER) (test 6 % zvww=321) BASOPHILS RELATIVE PERCENT (BEAKER) (test 0 % heem=328) NEUTROPHILS ABSOLUTE COUNT (BEAKER) (test 3.59 K/ L 1.78-5.38 dfli=476) LYMPHOCYTES ABSOLUTE COUNT (BEAKER) (test 0.73 K/ L 1.32-3.57 rpfy=719) MONOCYTES ABSOLUTE COUNT (BEAKER) (test nncm=656) 0.76 K/ L 0.30-0.82 EOSINOPHILS ABSOLUTE COUNT (BEAKER) (test 0.33 K/ L 0.04-0.54 yaet=719) BASOPHILS ABSOLUTE COUNT (BEAKER) (test hcjj=419) 0.02 K/ L 0.01-0.08 IMMATURE GRANULOCYTES-RELATIVE PERCENT (BEAKER) 1 % 0-1 (test lify=1099) PROTHROMBIN [id number] 07:51:00 Test Item Value Reference Range Comments PROTIME (BEAKER) (test kjdg=570) 23.8 seconds 11.7-14.7 INR (BEAKER) (test hyse=923) 2.1 <=5.9 RECOMMENDED COUMADIN/WARFARIN INR THERAPY RANGESSTANDARD DOSE: 2.0 - 3.0 Includes: PROPHYLAXIS forvenous thrombosis, systemic embolization; TREATMENT for venous thrombosis and/or pulmonary embolus.HIGH RISK: Target INR is 2.5-3.5 for patients with mechanical heart valves.BLOOD [id number] 05:02:00 Test Item Value Reference Range Comments CULTURE (BEAKER) (test uvxz=0813) No growth in 5 days BLOOD [id number] 05:02:00 Test Item Value Reference Range Comments CULTURE (BEAKER) (test mdui=5054) No growth in 5 days BODY FLUID CULTURE + GRAM [id number] 09:05:00 Test Item Value Reference Range Comments CULTURE (BEAKER) (test llyq=2908) No growth GRAM STAIN RESULT (BEAKER) (test No White blood cells seen hkvz=6462) GRAM STAIN RESULT (BEAKER) (test No organisms seen awrh=46152) RAPID DRUG SCREEN, [id number] 23:13:00 Test Item Value Reference Range Comments BARBITURATE URINE (BEAKER) (test sopr=604) Negative Negative BENZODIAZEPINE SCREEN URINE (BEAKER) (test Negative Negative zhlw=933) COCAINE (METAB.) SCREEN (BEAKER) (test wlhn=3309) Negative Negative METHADONE SCREEN (BEAKER) (test objc=1344) Negative Negative OPIATE SCREEN URINE (BEAKER) (test dfah=879) Negative Negative CANNABINOID SCREEN URINE (BEAKER) (test tfsc=453) Negative Negative AMPH/METHAMPH SCREEN (BEAKER) (test qhao=2118) Negative Negative PHENCYCLIDINE SCREEN URINE (BEAKER) (test qbfp=388) Negative Negative OXYCODONE SCREEN URINE (BEAKER) (test chmh=5483) Negative Negative DRUG CUTOFF CONC.Cocaine 300 ng/mL Cannabinoid 50 ng/mL Benzodiazepine 200 ng/mLBarbiturate 200 ng/ mLPhencyclidine 25 ng/mLOpiate 300 ng/mLMethadone 300 ng/mLAmphetamine/ 1000 ng/mL MethamphetamineOxycodone 300 ng/mLThis assay provides an unconfirmed qualitative test result for the clinical management of patients in emergency situations. Chain of custody not maintained. Some ywvq-btp-bwsbche medications, as well as adulterants, may cause inaccurate results. Clinical correlation should be applied. A more comprehensive drug screen or confirmation of a detected drug may be performed upon request.MR, ABDOMEN, [id number] 13:52:00FINAL REPORT MRI of the abdomen with [...] MDReport Verified Date/Time: 09/05/2017 13:52:35 Reading Location: [address] BodyReading Room CBC W/PLT COUNT & AUTO [id number] 05:46:00 Test Item Value Reference Range Comments WHITE BLOOD CELL COUNT (BEAKER) (test obrt=814) 4.7 K/ L 3.5-10.5 RED BLOOD CELL COUNT (BEAKER) (test zqfh=379) 2.49 M/ L 4.63-6.08 HEMOGLOBIN (BEAKER) (test sxae=944) 7.9 GM/DL 13.7-17.5 HEMATOCRIT (BEAKER) (test lspk=938) 22.6 % 40.1-51.0 MEAN CORPUSCULAR VOLUME (BEAKER) (test nugv=575) 90.8 fL 79.0-92.2 MEAN CORPUSCULAR HEMOGLOBIN (BEAKER) (test 31.7 pg 25.7-32.2 tswx=041) MEAN CORPUSCULAR HEMOGLOBIN CONC (BEAKER) (test 35.0 GM/DL 32.3-36.5 wbke=332) RED CELL DISTRIBUTION WIDTH (BEAKER) (test 18.8 % 11.6-14.4 xzra=990) PLATELET COUNT (BEAKER) (test ddsy=985) 60 K/CU MM 150-450 MEAN PLATELET VOLUME (BEAKER) (test tvfr=756) 9.2 fL 9.4-12.4 NUCLEATED RED BLOOD CELLS (BEAKER) (test 0 /100 WBC 0-0 ssri=531) NEUTROPHILS RELATIVE PERCENT (BEAKER) (test 65 % pmtm=234) LYMPHOCYTES RELATIVE PERCENT (BEAKER) (test 13 % dive=012) MONOCYTES RELATIVE PERCENT (BEAKER) (test 15 % yshf=128) EOSINOPHILS RELATIVE PERCENT (BEAKER) (test 6 % azsz=760) BASOPHILS RELATIVE PERCENT (BEAKER) (test 0 % oqzk=153) NEUTROPHILS ABSOLUTE COUNT (BEAKER) (test 3.05 K/ L 1.78-5.38 jkmz=671) LYMPHOCYTES ABSOLUTE COUNT (BEAKER) (test 0.62 K/ L 1.32-3.57 mpzk=240) MONOCYTES ABSOLUTE COUNT (BEAKER) (test dbzy=112) 0.68 K/ L 0.30-0.82 EOSINOPHILS ABSOLUTE COUNT (BEAKER) (test 0.28 K/ L 0.04-0.54 wkcd=519) BASOPHILS ABSOLUTE COUNT (BEAKER) (test mhtq=976) 0.02 K/ L 0.01-0.08 IMMATURE GRANULOCYTES-RELATIVE PERCENT (BEAKER) 1 % 0-1 (test khiq=4575) BASIC METABOLIC [id number] 05:44:00 Test Item Value Reference Range Comments SODIUM (BEAKER) (test 127 meq/L 136-145 ntvk=616) POTASSIUM (BEAKER) (test 4.5 meq/L 3.5-5.1 rdim=153) CHLORIDE (BEAKER) (test 101 meq/L 98-107 epmm=263) CO2 (BEAKER) (test 19 meq/L 22-29 srbs=587) BLOOD UREA NITROGEN 17 mg/dL 7-21 (BEAKER) (test tlfp=475) CREATININE (BEAKER) (test 0.91 mg/dL 0.57-1.25 iidm=309) GLUCOSE RANDOM (BEAKER) 107 mg/dL 70-105 (test ntdu=056) CALCIUM (BEAKER) (test 9.4 mg/dL 8.4-10.2 vnbe=900) EGFR (BEAKER) (test 87 mL/min/1.73 sq m ESTIMATED GFR IS NOT ixsq=5766) ACCURATE CREATININE CLEARANCE IN PREDICTING GLOMERULAR FILTRATION RATE. ESTIMATED GFR IS NOT APPLICABLE FOR DIALYSIS PATIENTS. Specimen moderately ictericHEPATIC FUNCTION [id number] 05:44:00 Test Item Value Reference Range Comments TOTAL PROTEIN (BEAKER) (test hwhb=473) 5.6 gm/dL 6.0-8.3 ALBUMIN (BEAKER) (test cntx=7486) 3.3 g/dL 3.5-5.0 BILIRUBIN TOTAL (BEAKER) (test bwpr=626) 10.3 mg/dL 0.2-1.2 BILIRUBIN DIRECT (BEAKER) (test zutw=685) 6.8 mg/dL 0.1-0.5 ALKALINE PHOSPHATASE (BEAKER) (test awgn=649) 103 U/L 40-150 AST (SGOT) (BEAKER) (test nvky=494) 17 U/L 5-34 ALT (SGPT) (BEAKER) (test dxki=004) 8 U/L 6-55 Specimen moderately ictericPT/[id number] 05:31:00 Test Item Value Reference Range Comments PROTIME (BEAKER) (test ucuo=154) 25.6 seconds 11.7-14.7 INR (BEAKER) (test wgqn=778) 2.3 <=5.9 PARTIAL THROMBOPLASTIN TIME (BEAKER) (test 51.6 seconds 22.5-36.0 kxbp=087) RECOMMENDED COUMADIN/WARFARIN INR THERAPY RANGESSTANDARD DOSE: 2.0 - 3.0 Includes: PROPHYLAXIS forvenous thrombosis, systemic embolization; TREATMENT for venous thrombosis and/or pulmonary embolus.HIGH RISK: Target INR is 2.5-3.5 for patients with mechanical heart valves.PROTHROMBIN TIME/[id number] 05:30: 00 Test Item Value Reference Range Comments PROTIME (BEAKER) (test ublr=663) 25.6 seconds 11.7-14.7 INR (BEAKER) (test zlju=975) 2.3 <=5.9 RECOMMENDED COUMADIN/WARFARIN INR THERAPY RANGESSTANDARD DOSE: 2.0 - 3.0 Includes: PROPHYLAXIS forvenous thrombosis, systemic embolization; TREATMENT for venous thrombosis and/or pulmonary embolus.HIGH RISK: Target INR is 2.5-3.5 for patients with mechanical heart valves.BODY FLUID CELL COUNT WITH [id number] 19:30:00 Test Item Value Reference Range Comments APPEARANCE FLUID (BEAKER) (test tfkq=485) Slightly Hazy Clear COLOR FLUID (BEAKER) (test npgi=717) Yellow Colorless, Straw RBC FLUID (BEAKER) (test celt=284) 100 /cu mm <=1 ADJUSTED WBC FLUID (BEAKER) (test klhe=5687) 36 /cu mm <=5 LINING CELLS (BEAKER) (test rvfn=2199) 4 /cu mm <=1 NEUTROPHILS FLUID (BEAKER) (test trrj=7329) 0 % LYMPHS FLUID (BEAKER) (test qmud=091) 20 % MONO/MACROPHAGE FLUID (BEAKER) (test 80 % azio=385) EOSINOPHILS FLUID (BEAKER) (test wjoo=966) 0 % BASO FLUID (BEAKER) (test rrbo=788) 0 % CONTAINER BODY FLUID (BEAKER) (test EDTA Tube obcr=8906) U/S, [id number] 16:21:00Reason for exam:->ascitesShould this be performed at the bedside?->NoFINAL REPORT PROCEDURE: Ultrasound-guided paracentesis. INDICATION: 52-year-old man with ascites. DESCRIPTION: After obtaining informed written consent, ultrasound scan of the abdomen identified ascites in the right lower quadrant. The overlying skin was prepped and draped in the usual, sterile fashion and local 1% lidocaine anesthesia was administered. A 5 [place] catheter was advanced into the peritoneal cavity and 13,200 cc of cloudy yellow fluid was removed. The catheter was removed without immediate complication. Samples were sent for analysis. IMPRESSION:Uncomplicated ultrasound-guided paracentesis with 13,200 cc fluid removed. Signed: Candice Mckeon Verified Date/Time: 2016 16:21:22 Reading Location: [facility] [id number] Ultrasound Reading Room BASIC METABOLIC [id number] 11:07:00 Test Item Value Reference Range Comments SODIUM (BEAKER) (test 127 meq/L 136-145 ftry=536) POTASSIUM (BEAKER) (test 4.1 meq/L 3.5-5.1 qxyq=986) CHLORIDE (BEAKER) (test 101 meq/L 98-107 jigm=947) CO2 (BEAKER) (test 23 meq/L 22-29 brbp=406) BLOOD UREA NITROGEN 17 mg/dL 7-21 (BEAKER) (test xtzz=053) CREATININE (BEAKER) (test 1.06 mg/dL 0.57-1.25 qmqa=333) GLUCOSE RANDOM (BEAKER) 104 mg/dL 70-105 (test zszl=597) CALCIUM (BEAKER) (test 8.9 mg/dL 8.4-10.2 gfbq=264) EGFR (BEAKER) (test 73 mL/min/1.73 sq m ESTIMATED GFR IS NOT nnhm=2199) ACCURATE CREATININE CLEARANCE IN PREDICTING GLOMERULAR FILTRATION RATE. ESTIMATED GFR IS NOT APPLICABLE FOR DIALYSIS PATIENTS. Specimen markedly ictericHEPATIC FUNCTION [id number] 11:07:00 Test Item Value Reference Range Comments TOTAL PROTEIN (BEAKER) (test dceb=868) 5.4 gm/dL 6.0-8.3 ALBUMIN (BEAKER) (test ajmr=5117) 2.8 g/dL 3.5-5.0 BILIRUBIN TOTAL (BEAKER) (test mpwx=615) 12.7 mg/dL 0.2-1.2 BILIRUBIN DIRECT (BEAKER) (test qhsd=654) 7.8 mg/dL 0.1-0.5 ALKALINE PHOSPHATASE (BEAKER) (test yhwu=462) 90 U/L 40-150 AST (SGOT) (BEAKER) (test lgbb=500) 22 U/L 5-34 ALT (SGPT) (BEAKER) (test cqve=598) 11 U/L 6-55 Specimen markedly ictericPT/[id number] 11:02:00 Test Item Value Reference Range Comments PROTIME (BEAKER) (test wbiq=468) 23.4 seconds 11.7-14.7 INR (BEAKER) (test mkmj=442) 2.1 <=5.9 PARTIAL THROMBOPLASTIN TIME (BEAKER) (test 48.7 seconds 22.5-36.0 kelw=491) RECOMMENDED COUMADIN/WARFARIN INR THERAPY RANGESSTANDARD DOSE: 2.0 - 3.0 Includes: PROPHYLAXIS forvenous thrombosis, systemic embolization; TREATMENT for venous thrombosis and/or pulmonary embolus.HIGH RISK: Target INR is 2.5-3.5 for patients with mechanical heart valves.PROTHROMBIN TIME/[id number] 11:01: 00 Test Item Value Reference Range Comments PROTIME (BEAKER) (test yggj=677) 23.4 seconds 11.7-14.7 INR (BEAKER) (test cleh=149) 2.1 <=5.9 RECOMMENDED COUMADIN/WARFARIN INR THERAPY RANGESSTANDARD DOSE: 2.0 - 3.0 Includes: PROPHYLAXIS forvenous thrombosis, systemic embolization; TREATMENT for venous thrombosis and/or pulmonary embolus.HIGH RISK: Target INR is 2.5-3.5 for patients with mechanical heart valves.CBC W/PLT COUNT & AUTO [id number] 10:56:00 Test Item Value Reference Range Comments WHITE BLOOD CELL COUNT (BEAKER) (test lmdz=582) 4.4 K/ L 3.5-10.5 RED BLOOD CELL COUNT (BEAKER) (test egsc=403) 2.48 M/ L 4.63-6.08 HEMOGLOBIN (BEAKER) (test rgub=889) 7.8 GM/DL 13.7-17.5 HEMATOCRIT (BEAKER) (test etff=413) 22.7 % 40.1-51.0 MEAN CORPUSCULAR VOLUME (BEAKER) (test qbbq=056) 91.5 fL 79.0-92.2 MEAN CORPUSCULAR HEMOGLOBIN (BEAKER) (test 31.5 pg 25.7-32.2 wmkw=202) MEAN CORPUSCULAR HEMOGLOBIN CONC (BEAKER) (test 34.4 GM/DL 32.3-36.5 niem=717) RED CELL DISTRIBUTION WIDTH (BEAKER) (test 18.6 % 11.6-14.4 jiba=012) PLATELET COUNT (BEAKER) (test rums=828) 60 K/CU MM 150-450 MEAN PLATELET VOLUME (BEAKER) (test vtyg=009) 8.8 fL 9.4-12.4 NUCLEATED RED BLOOD CELLS (BEAKER) (test 0 /100 WBC 0-0 akcy=090) NEUTROPHILS RELATIVE PERCENT (BEAKER) (test 61 % vglj=818) LYMPHOCYTES RELATIVE PERCENT (BEAKER) (test 9 % ervk=176) MONOCYTES RELATIVE PERCENT (BEAKER) (test 21 % qqrq=073) EOSINOPHILS RELATIVE PERCENT (BEAKER) (test 8 % jjkh=061) BASOPHILS RELATIVE PERCENT (BEAKER) (test 1 % dnqx=667) NEUTROPHILS ABSOLUTE COUNT (BEAKER) (test 2.68 K/ L 1.78-5.38 vhsm=251) LYMPHOCYTES ABSOLUTE COUNT (BEAKER) (test 0.38 K/ L 1.32-3.57 pafr=194) MONOCYTES ABSOLUTE COUNT (BEAKER) (test blky=098) 0.94 K/ L 0.30-0.82 EOSINOPHILS ABSOLUTE COUNT (BEAKER) (test 0.33 K/ L 0.04-0.54 psak=494) BASOPHILS ABSOLUTE COUNT (BEAKER) (test avkv=199) 0.02 K/ L 0.01-0.08 IMMATURE GRANULOCYTES-RELATIVE PERCENT (BEAKER) 1 % 0-1 (test xvfa=4552) URINALYSIS W/ [id number] 06:18:00 Test Item Value Reference Range Comments COLOR (BEAKER) (test umya=901) Dark Yellow CLARITY (BEAKER) (test pnjm=367) Clear SPECIFIC GRAVITY UA (BEAKER) (test snwe=727) 1.008 1.001-1.035 PH UA (BEAKER) (test eppx=378) 6.0 5.0-8.0 PROTEIN UA (BEAKER) (test qbao=001) Negative Negative GLUCOSE UA (BEAKER) (test exan=893) Negative Negative KETONES UA (BEAKER) (test odhf=731) Negative Negative BILIRUBIN UA (BEAKER) (test exqz=661) Positive Negative BLOOD UA (BEAKER) (test vbns=523) Moderate Negative NITRITE UA (BEAKER) (test wgez=872) Negative Negative LEUKOCYTE ESTERASE UA (BEAKER) (test rmqq=899) Negative Negative UROBILINOGEN UA (BEAKER) (test tbdi=194) 0.2 mg/dL 0.2-1.0 RBC UA (BEAKER) (test voix=873) 80 /HPF WBC UA (BEAKER) (test ywmb=479) 10 /HPF HYALINE CASTS (BEAKER) (test lbjj=128) 5 /LPF AMORPHOUS CRYSTALS (BEAKER) (test kwre=0504) Rare SOURCE(BEAKER) (test ygei=3695) CBC W/PLT COUNT & AUTO [id number] 00:00:00 Test Item Value Reference Range Comments WHITE BLOOD CELL COUNT (BEAKER) (test koes=679) 3.7 K/ L 3.5-10.5 RED BLOOD CELL COUNT (BEAKER) (test gjks=817) 2.20 M/ L 4.63-6.08 HEMOGLOBIN (BEAKER) (test dmlg=575) 7.0 GM/DL 13.7-17.5 HEMATOCRIT (BEAKER) (test mqoj=885) 20.2 % 40.1-51.0 MEAN CORPUSCULAR VOLUME (BEAKER) (test lefp=556) 91.8 fL 79.0-92.2 MEAN CORPUSCULAR HEMOGLOBIN (BEAKER) (test 31.8 pg 25.7-32.2 bmbj=452) MEAN CORPUSCULAR HEMOGLOBIN CONC (BEAKER) (test 34.7 GM/DL 32.3-36.5 csht=638) RED CELL DISTRIBUTION WIDTH (BEAKER) (test 19.3 % 11.6-14.4 akqf=719) PLATELET COUNT (BEAKER) (test nthf=986) 63 K/CU MM 150-450 MEAN PLATELET VOLUME (BEAKER) (test oxmc=502) 9.1 fL 9.4-12.4 NUCLEATED RED BLOOD CELLS (BEAKER) (test 0 /100 WBC 0-0 mpeo=996) NEUTROPHILS RELATIVE PERCENT (BEAKER) (test 62 % psqm=356) LYMPHOCYTES RELATIVE PERCENT (BEAKER) (test 11 % uylf=554) MONOCYTES RELATIVE PERCENT (BEAKER) (test 19 % ztjh=334) EOSINOPHILS RELATIVE PERCENT (BEAKER) (test 7 % ynky=036) BASOPHILS RELATIVE PERCENT (BEAKER) (test 1 % bhzg=473) NEUTROPHILS ABSOLUTE COUNT (BEAKER) (test 2.29 K/ L 1.78-5.38 tdhq=711) LYMPHOCYTES ABSOLUTE COUNT (BEAKER) (test 0.39 K/ L 1.32-3.57 lzxt=528) MONOCYTES ABSOLUTE COUNT (BEAKER) (test ylzd=140) 0.71 K/ L 0.30-0.82 EOSINOPHILS ABSOLUTE COUNT (BEAKER) (test 0.27 K/ L 0.04-0.54 haak=435) BASOPHILS ABSOLUTE COUNT (BEAKER) (test ibcv=655) 0.02 K/ L 0.01-0.08 IMMATURE GRANULOCYTES-RELATIVE PERCENT (BEAKER) 1 % 0-1 (test hsxr=6176) PROTHROMBIN [id number] 22:52:00 Test Item Value Reference Range Comments PROTIME (BEAKER) (test neup=548) 25.6 seconds 11.7-14.7 INR (BEAKER) (test jdkv=396) 2.3 <=5.9 RECOMMENDED COUMADIN/WARFARIN INR THERAPY RANGESSTANDARD DOSE: 2.0 - 3.0 Includes: PROPHYLAXIS forvenous thrombosis, systemic embolization; TREATMENT for venous thrombosis and/or pulmonary embolus.HIGH RISK: Target INR is 2.5-3.5 for patients with mechanical heart valves.[id number] 22:52:00 Test Item Value Reference Range Comments MAGNESIUM (BEAKER) (test fxtz=092) 1.3 mg/dL 1.6-2.6 BASIC METABOLIC [id number] 22:52:00 Test Item Value Reference Range Comments SODIUM (BEAKER) (test 124 meq/L 136-145 iohj=748) POTASSIUM (BEAKER) (test 4.1 meq/L 3.5-5.1 tnas=952) CHLORIDE (BEAKER) (test 99 meq/L 98-107 ezbw=791) CO2 (BEAKER) (test 18 meq/L 22-29 lewk=031) BLOOD UREA NITROGEN 16 mg/dL 7-21 (BEAKER) (test qjre=199) CREATININE (BEAKER) (test 0.97 mg/dL 0.57-1.25 gsrz=345) GLUCOSE RANDOM (BEAKER) 99 mg/dL 70-105 (test akvp=664) CALCIUM (BEAKER) (test 8.7 mg/dL 8.4-10.2 rqre=498) EGFR (BEAKER) (test 81 mL/min/1.73 sq m ESTIMATED GFR IS NOT tjzp=8385) ACCURATE CREATININE CLEARANCE IN PREDICTING GLOMERULAR FILTRATION RATE. ESTIMATED GFR IS NOT APPLICABLE FOR DIALYSIS PATIENTS. Specimen markedly ictericHEPATIC FUNCTION [id number] 22:52:00 Test Item Value Reference Range Comments TOTAL PROTEIN (BEAKER) (test tfsl=934) 5.3 gm/dL 6.0-8.3 ALBUMIN (BEAKER) (test xwtf=0817) 2.8 g/dL 3.5-5.0 BILIRUBIN TOTAL (BEAKER) (test xevn=769) 12.7 mg/dL 0.2-1.2 BILIRUBIN DIRECT (BEAKER) (test weot=202) 7.6 mg/dL 0.1-0.5 ALKALINE PHOSPHATASE (BEAKER) (test zcvr=959) 93 U/L 40-150 AST (SGOT) (BEAKER) (test gasj=922) 21 U/L 5-34 ALT (SGPT) (BEAKER) (test wyyn=621) 9 U/L 6-55 Specimen markedly ictericALPHA FETOPROTEIN (AFP), TUMOR [id number] 16:39: 00 Test Item Value Reference Range Comments ALPHA-FETOPROTEIN (BEAKER) (test mwho=1480) 2.5 ng/mL <10.0 BASIC METABOLIC [id number] 15:53:00 Test Item Value Reference Range Comments SODIUM (BEAKER) (test 126 meq/L 136-145 zjmu=720) POTASSIUM (BEAKER) (test 5.1 meq/L 3.5-5.1 qytk=013) CHLORIDE (BEAKER) (test 101 meq/L 98-107 hycj=676) CO2 (BEAKER) (test 19 meq/L 22-29 anbl=740) BLOOD UREA NITROGEN 14 mg/dL 7-21 (BEAKER) (test pqrq=521) CREATININE (BEAKER) (test 1.01 mg/dL 0.57-1.25 voan=575) GLUCOSE RANDOM (BEAKER) 104 mg/dL 70-105 (test kozq=481) CALCIUM (BEAKER) (test 9.0 mg/dL 8.4-10.2 tlvf=119) EGFR (BEAKER) (test 78 mL/min/1.73 sq m ESTIMATED GFR IS NOT qcni=0640) ACCURATE CREATININE CLEARANCE IN PREDICTING GLOMERULAR FILTRATION RATE. ESTIMATED GFR IS NOT APPLICABLE FOR DIALYSIS PATIENTS. Specimen moderately ictericHEPATIC FUNCTION [id number] 15:53:00 Test Item Value Reference Range Comments TOTAL PROTEIN (BEAKER) (test ilnx=280) 6.1 gm/dL 6.0-8.3 ALBUMIN (BEAKER) (test gjou=6390) 2.6 g/dL 3.5-5.0 BILIRUBIN TOTAL (BEAKER) (test priy=199) 10.4 mg/dL 0.2-1.2 BILIRUBIN DIRECT (BEAKER) (test bmwv=951) 7.5 mg/dL 0.1-0.5 ALKALINE PHOSPHATASE (BEAKER) (test jnwe=941) 124 U/L 40-150 AST (SGOT) (BEAKER) (test dhll=775) 29 U/L 5-34 ALT (SGPT) (BEAKER) (test akwi=218) 12 U/L 6-55 Specimen moderately ictericGAMMA GLUTAMYL TRANSFERASE (GGT)[id number] 15:53:00 Test Item Value Reference Range Comments GAMMA GLUTAMYL TRANSFERASE (BEAKER) (test nznu=258) 17 U/L 9-64 Specimen moderately ictericPROTHROMBIN TIME/[id number] 15:40:00 Test Item Value Reference Range Comments PROTIME (BEAKER) (test mzzg=043) 22.6 seconds 11.7-14.7 INR (BEAKER) (test jdvj=065) 2.0 <=5.9 RECOMMENDED COUMADIN/WARFARIN INR THERAPY RANGESSTANDARD DOSE: 2.0 - 3.0 Includes: PROPHYLAXIS forvenous thrombosis, systemic embolization; TREATMENT for venous thrombosis and/or pulmonary embolus.HIGH RISK: Target INR is 2.5-3.5 for patients with mechanical heart valves.CBC W/PLT COUNT & AUTO [id number] 15:38:00 Test Item Value Reference Range Comments WHITE BLOOD CELL COUNT (BEAKER) (test ztak=874) 7.3 K/ L 3.5-10.5 RED BLOOD CELL COUNT (BEAKER) (test gdtj=857) 2.78 M/ L 4.63-6.08 HEMOGLOBIN (BEAKER) (test ueex=048) 9.1 GM/DL 13.7-17.5 HEMATOCRIT (BEAKER) (test ryez=711) 27.3 % 40.1-51.0 MEAN CORPUSCULAR VOLUME (BEAKER) (test buew=358) 98.2 fL 79.0-92.2 MEAN CORPUSCULAR HEMOGLOBIN (BEAKER) (test 32.7 pg 25.7-32.2 rqlh=536) MEAN CORPUSCULAR HEMOGLOBIN CONC (BEAKER) (test 33.3 GM/DL 32.3-36.5 htph=585) RED CELL DISTRIBUTION WIDTH (BEAKER) (test 16.4 % 11.6-14.4 peai=638) PLATELET COUNT (BEAKER) (test ctyg=419) 71 K/CU MM 150-450 MEAN PLATELET VOLUME (BEAKER) (test aekb=245) 9.1 fL 9.4-12.4 NUCLEATED RED BLOOD CELLS (BEAKER) (test 0 /100 WBC 0-0 txdr=964) NEUTROPHILS RELATIVE PERCENT (BEAKER) (test 71 % kdvz=599) LYMPHOCYTES RELATIVE PERCENT (BEAKER) (test 8 % cciv=631) MONOCYTES RELATIVE PERCENT (BEAKER) (test 15 % njun=929) EOSINOPHILS RELATIVE PERCENT (BEAKER) (test 5 % krat=588) BASOPHILS RELATIVE PERCENT (BEAKER) (test 0 % vjnr=998) NEUTROPHILS ABSOLUTE COUNT (BEAKER) (test 5.13 K/ L 1.78-5.38 qpha=594) LYMPHOCYTES ABSOLUTE COUNT (BEAKER) (test 0.59 K/ L 1.32-3.57 abgo=468) MONOCYTES ABSOLUTE COUNT (BEAKER) (test ldfs=295) 1.06 K/ L 0.30-0.82 EOSINOPHILS ABSOLUTE COUNT (BEAKER) (test 0.33 K/ L 0.04-0.54 bxpp=402) BASOPHILS ABSOLUTE COUNT (BEAKER) (test jzvg=628) 0.03 K/ L 0.01-0.08 IMMATURE GRANULOCYTES-RELATIVE PERCENT (BEAKER) 2 % 0-1 (test sphe=4139) FUNGUS CULTURE + [id number] 07:22:00 Test Item Value Reference Range Comments CULTURE (BEAKER) (test No fungus isolated in 28 days lnao=1683) FUNGUS SMEAR (BEAKER) (test No fungi seen maoj=7955) HISTOPLASMA ANTIGEN, [id number] 08:01:00 Test Item Value Reference Range Comments SCAN RESULT (test fhmd=[id number]) TISSUE [id number] 10:58:00 Test Item Value Reference Range Comments LAB AP CPT CODE (BEAKER) (test kkmu=5747) 652[address] BLOOD [id number] 16:15:00 Test Item Value Reference Range Comments CULTURE (BEAKER) (test kuui=4673) No growth in 5 days BLOOD [id number] 16:15:00 Test Item Value Reference Range Comments CULTURE (BEAKER) (test rygd=2174) No growth in 5 days [id number] 06:54:00 Test Item Value Reference Range Comments PHOSPHORUS (BEAKER) (test muvy=055) 3.3 mg/dL 2.3-4.7 [id number] 06:54:00 Test Item Value Reference Range Comments MAGNESIUM (BEAKER) (test otjh=212) 1.2 mg/dL 1.6-2.6 BASIC METABOLIC [id number] 06:54:00 Test Item Value Reference Range Comments SODIUM (BEAKER) (test 133 meq/L 136-145 zglr=115) POTASSIUM (BEAKER) (test 3.6 meq/L 3.5-5.1 kici=831) CHLORIDE (BEAKER) (test 108 meq/L 98-107 lvek=703) CO2 (BEAKER) (test 17 meq/L 22-29 wltc=935) BLOOD UREA NITROGEN 13 mg/dL 7-21 (BEAKER) (test fxbg=880) CREATININE (BEAKER) (test 1.16 mg/dL 0.57-1.25 haxi=758) GLUCOSE RANDOM (BEAKER) 82 mg/dL 70-105 (test foxy=939) CALCIUM (BEAKER) (test 8.0 mg/dL 8.4-10.2 mkau=438) EGFR (BEAKER) (test 66 mL/min/1.73 sq m ESTIMATED GFR IS NOT yscn=4764) ACCURATE CREATININE CLEARANCE IN PREDICTING GLOMERULAR FILTRATION RATE. ESTIMATED GFR IS NOT APPLICABLE FOR DIALYSIS PATIENTS. Specimen moderately ictericHEPATIC FUNCTION [id number] 06:54:00 Test Item Value Reference Range Comments TOTAL PROTEIN (BEAKER) (test qxqz=412) 5.7 gm/dL 6.0-8.3 ALBUMIN (BEAKER) (test xcba=0510) 3.1 g/dL 3.5-5.0 BILIRUBIN TOTAL (BEAKER) (test pnzr=322) 5.2 mg/dL 0.2-1.2 BILIRUBIN DIRECT (BEAKER) (test pmuq=393) 2.6 mg/dL 0.1-0.5 ALKALINE PHOSPHATASE (BEAKER) (test bskj=988) 55 U/L 40-150 AST (SGOT) (BEAKER) (test dhkk=636) 32 U/L 5-34 ALT (SGPT) (BEAKER) (test mkxx=134) 9 U/L 6-55 Specimen moderately ictericCALCIUM, [id number] 06:30:00 Test Item Value Reference Range Comments CALCIUM IONIZED (BEAKER) (test cpzj=194) 1.00 mmol/L 1.12-1.27 PH, BLOOD (BEAKER) (test aqum=6610) 7.52 CBC W/PLT COUNT & AUTO [id number] 06:17:00 Test Item Value Reference Range Comments WHITE BLOOD CELL COUNT (BEAKER) (test tmsp=831) 4.7 K/ L 4.0-10.0 RED BLOOD CELL COUNT (BEAKER) (test awvk=327) 2.05 M/ L 4.20-5.80 HEMOGLOBIN (BEAKER) (test fivq=497) 7.1 GM/DL 13.0-16.8 HEMATOCRIT (BEAKER) (test kvft=174) 21.1 % 40.0-50.0 MEAN CORPUSCULAR VOLUME (BEAKER) (test cbhh=293) 103.0 fL 82.0-98.0 MEAN CORPUSCULAR HEMOGLOBIN (BEAKER) (test 34.8 pg 27.0-33.0 wpit=568) MEAN CORPUSCULAR HEMOGLOBIN CONC (BEAKER) (test 33.8 GM/DL 32.0-36.0 arqt=857) RED CELL DISTRIBUTION WIDTH (BEAKER) (test 13.9 % 10.3-14.2 lpul=283) PLATELET COUNT (BEAKER) (test rnoc=289) 71 K/CU MM 150-430 MEAN PLATELET VOLUME (BEAKER) (test qxaq=901) 6.6 fL 6.5-10.5 NUCLEATED RED BLOOD CELLS (BEAKER) (test 0 /100 WBC 0-0 xjhb=066) NEUTROPHILS RELATIVE PERCENT (BEAKER) (test 68 % jnqp=379) LYMPHOCYTES RELATIVE PERCENT (BEAKER) (test 16 % spnx=027) MONOCYTES RELATIVE PERCENT (BEAKER) (test 12 % xurb=430) EOSINOPHILS RELATIVE PERCENT (BEAKER) (test 4 % suph=235) BASOPHILS RELATIVE PERCENT (BEAKER) (test 1 % bgeh=482) NEUTROPHILS ABSOLUTE COUNT (BEAKER) (test 3.21 K/ L 1.80-8.00 vawu=058) LYMPHOCYTES ABSOLUTE COUNT (BEAKER) (test 0.75 K/ L 1.48-4.50 miup=260) MONOCYTES ABSOLUTE COUNT (BEAKER) (test kqrc=062) 0.57 K/ L 0.00-1.30 EOSINOPHILS ABSOLUTE COUNT (BEAKER) (test 0.19 K/ L 0.00-0.50 qhug=588) BASOPHILS ABSOLUTE COUNT (BEAKER) (test svcu=743) 0.03 K/ L 0.00-0.20 0.00PROTHROMBIN [id number] 05:56:00 Test Item Value Reference Range Comments PROTIME (BEAKER) (test lgfl=868) 26.4 seconds 11.7-14.7 INR (BEAKER) (test qsmw=858) 2.4 <=5.9 RECOMMENDED COUMADIN/WARFARIN INR THERAPY RANGESSTANDARD DOSE: 2.0 - 3.0 Includes: PROPHYLAXIS forvenous thrombosis, systemic embolization; TREATMENT for venous thrombosis and/or pulmonary embolus.HIGH RISK: Target INR is 2.5-3.5 for patients with mechanical heart valves.BASIC METABOLIC [id number] 04:44: 00 Test Item Value Reference Range Comments SODIUM (BEAKER) (test 134 meq/L 136-145 tiqh=500) POTASSIUM (BEAKER) (test 3.6 meq/L 3.5-5.1 klku=402) CHLORIDE (BEAKER) (test 108 meq/L 98-107 fsqt=687) CO2 (BEAKER) (test 19 meq/L 22-29 izou=541) BLOOD UREA NITROGEN 12 mg/dL 7-21 (BEAKER) (test bbaj=123) CREATININE (BEAKER) (test 1.32 mg/dL 0.57-1.25 peuw=781) GLUCOSE RANDOM (BEAKER) 82 mg/dL 70-105 (test zvsi=620) CALCIUM (BEAKER) (test 7.9 mg/dL 8.4-10.2 mcbs=220) EGFR (BEAKER) (test 57 mL/min/1.73 sq m ESTIMATED GFR IS NOT dann=3249) ACCURATE CREATININE CLEARANCE IN PREDICTING GLOMERULAR FILTRATION RATE. ESTIMATED GFR IS NOT APPLICABLE FOR DIALYSIS PATIENTS. Specimen moderately ictericHEPATIC FUNCTION [id number] 04:42:00 Test Item Value Reference Range Comments TOTAL PROTEIN (BEAKER) (test fplg=213) 5.8 gm/dL 6.0-8.3 ALBUMIN (BEAKER) (test cqmu=7222) 3.1 g/dL 3.5-5.0 BILIRUBIN TOTAL (BEAKER) (test ifkf=076) 5.1 mg/dL 0.2-1.2 BILIRUBIN DIRECT (BEAKER) (test ostg=180) 2.7 mg/dL 0.1-0.5 ALKALINE PHOSPHATASE (BEAKER) (test zhqj=336) 51 U/L 40-150 AST (SGOT) (BEAKER) (test cyzl=439) 27 U/L 5-34 ALT (SGPT) (BEAKER) (test wavu=079) 7 U/L 6-55 Specimen moderately ictericCBC W/PLT COUNT & AUTO [id number] 04: 35:00 Test Item Value Reference Range Comments WHITE BLOOD CELL COUNT (BEAKER) (test pdja=327) 4.6 K/ L 4.0-10.0 RED BLOOD CELL COUNT (BEAKER) (test yhxc=822) 2.06 M/ L 4.20-5.80 HEMOGLOBIN (BEAKER) (test awyv=199) 7.2 GM/DL 13.0-16.8 HEMATOCRIT (BEAKER) (test bavh=123) 21.5 % 40.0-50.0 MEAN CORPUSCULAR VOLUME (BEAKER) (test wwsr=594) 104.0 fL 82.0-98.0 MEAN CORPUSCULAR HEMOGLOBIN (BEAKER) (test 35.0 pg 27.0-33.0 anqc=142) MEAN CORPUSCULAR HEMOGLOBIN CONC (BEAKER) (test 33.6 GM/DL 32.0-36.0 zzso=776) RED CELL DISTRIBUTION WIDTH (BEAKER) (test 13.4 % 10.3-14.2 sfzl=377) PLATELET COUNT (BEAKER) (test msbr=413) 76 K/CU MM 150-430 MEAN PLATELET VOLUME (BEAKER) (test ilhk=143) 6.5 fL 6.5-10.5 NUCLEATED RED BLOOD CELLS (BEAKER) (test 0 /100 WBC 0-0 ebgi=948) NEUTROPHILS RELATIVE PERCENT (BEAKER) (test 64 % iaph=485) LYMPHOCYTES RELATIVE PERCENT (BEAKER) (test 16 % fxye=102) MONOCYTES RELATIVE PERCENT (BEAKER) (test 16 % knry=376) EOSINOPHILS RELATIVE PERCENT (BEAKER) (test 4 % duzh=564) BASOPHILS RELATIVE PERCENT (BEAKER) (test 1 % spap=760) NEUTROPHILS ABSOLUTE COUNT (BEAKER) (test 2.89 K/ L 1.80-8.00 weov=831) LYMPHOCYTES ABSOLUTE COUNT (BEAKER) (test 0.72 K/ L 1.48-4.50 kluw=057) MONOCYTES ABSOLUTE COUNT (BEAKER) (test eemz=462) 0.71 K/ L 0.00-1.30 EOSINOPHILS ABSOLUTE COUNT (BEAKER) (test 0.20 K/ L 0.00-0.50 odit=029) BASOPHILS ABSOLUTE COUNT (BEAKER) (test wdna=076) 0.03 K/ L 0.00-0.20 0.00PROTHROMBIN [id number] 04:33:00 Test Item Value Reference Range Comments PROTIME (BEAKER) (test qagt=051) 30.2 seconds 11.7-14.7 INR (BEAKER) (test xtng=601) 2.9 <=5.9 RECOMMENDED COUMADIN/WARFARIN INR THERAPY RANGESSTANDARD DOSE: 2.0 - 3.0 Includes: PROPHYLAXIS forvenous thrombosis, systemic embolization; TREATMENT for venous thrombosis and/or pulmonary embolus.HIGH RISK: Target INR is 2.5-3.5 for patients with mechanical heart valves.VANCOMYCIN LEVEL, [id number] 17: 04:00 Test Item Value Reference Range Comments VANCOMYCIN TROUGH (BEAKER) (test hekj=611) 12.2 ug/mL 10.0-20.0 URINE [id number] 14:25:00 Test Item Value Reference Range Comments CULTURE (BEAKER) (test rzxl=8214) No growth TSH/FREE T4 IF [id number] 14:22:00 Test Item Value Reference Range Comments THYROID STIMULATING HORMONE (BEAKER) (test 3.53 uIU/mL 0.35-4.94 mjhe=403) URINE [id number] 11:43:00 Test Item Value Reference Range Comments CULTURE (BEAKER) (test fnva=1278) No growth CBC W/PLT COUNT & AUTO [id number] 07:55:00 Test Item Value Reference Range Comments WHITE BLOOD CELL COUNT (BEAKER) (test eazc=990) 4.5 K/ L 4.0-10.0 RED BLOOD CELL COUNT (BEAKER) (test dqng=545) 2.06 M/ L 4.20-5.80 HEMOGLOBIN (BEAKER) (test uphe=786) 7.1 GM/DL 13.0-16.8 HEMATOCRIT (BEAKER) (test vcjq=114) 21.5 % 40.0-50.0 MEAN CORPUSCULAR VOLUME (BEAKER) (test fjwj=495) 104.0 fL 82.0-98.0 MEAN CORPUSCULAR HEMOGLOBIN (BEAKER) (test 34.5 pg 27.0-33.0 mmli=538) MEAN CORPUSCULAR HEMOGLOBIN CONC (BEAKER) (test 33.1 GM/DL 32.0-36.0 mvkl=379) RED CELL DISTRIBUTION WIDTH (BEAKER) (test 13.4 % 10.3-14.2 gicd=985) PLATELET COUNT (BEAKER) (test fybh=450) 79 K/CU MM 150-430 MEAN PLATELET VOLUME (BEAKER) (test oigb=385) 6.8 fL 6.5-10.5 NUCLEATED RED BLOOD CELLS (BEAKER) (test 0 /100 WBC 0-0 mjed=972) NEUTROPHILS RELATIVE PERCENT (BEAKER) (test 64 % difh=194) LYMPHOCYTES RELATIVE PERCENT (BEAKER) (test 16 % yrvy=652) MONOCYTES RELATIVE PERCENT (BEAKER) (test 15 % tqul=743) EOSINOPHILS RELATIVE PERCENT (BEAKER) (test 5 % wkpe=449) BASOPHILS RELATIVE PERCENT (BEAKER) (test 0 % jjpn=665) NEUTROPHILS ABSOLUTE COUNT (BEAKER) (test 2.88 K/ L 1.80-8.00 rasz=514) LYMPHOCYTES ABSOLUTE COUNT (BEAKER) (test 0.73 K/ L 1.48-4.50 uqpz=176) MONOCYTES ABSOLUTE COUNT (BEAKER) (test aibp=676) 0.68 K/ L 0.00-1.30 EOSINOPHILS ABSOLUTE COUNT (BEAKER) (test 0.23 K/ L 0.00-0.50 yifp=410) BASOPHILS ABSOLUTE COUNT (BEAKER) (test okum=714) 0.02 K/ L 0.00-0.20 0.00BASI METABOLIC [id number] 05:58:00 Test Item Value Reference Range Comments SODIUM (BEAKER) (test 137 meq/L 136-145 eojd=786) POTASSIUM (BEAKER) (test 3.7 meq/L 3.5-5.1 mqmq=941) CHLORIDE (BEAKER) (test 110 meq/L 98-107 lthm=214) CO2 (BEAKER) (test 19 meq/L 22-29 ykzt=382) BLOOD UREA NITROGEN 12 mg/dL 7-21 (BEAKER) (test efxa=857) CREATININE (BEAKER) (test 1.29 mg/dL 0.57-1.25 tckz=027) GLUCOSE RANDOM (BEAKER) 80 mg/dL 70-105 (test wrkn=662) CALCIUM (BEAKER) (test 8.1 mg/dL 8.4-10.2 uwna=395) EGFR (BEAKER) (test 59 mL/min/1.73 sq m ESTIMATED GFR IS NOT bodb=0751) ACCURATE CREATININE CLEARANCE IN PREDICTING GLOMERULAR FILTRATION RATE. ESTIMATED GFR IS NOT APPLICABLE FOR DIALYSIS PATIENTS. Specimen moderately ictericHEPATIC FUNCTION [id number] 05:58:00 Test Item Value Reference Range Comments TOTAL PROTEIN (BEAKER) (test bzka=819) 5.9 gm/dL 6.0-8.3 ALBUMIN (BEAKER) (test grrr=7049) 3.4 g/dL 3.5-5.0 BILIRUBIN TOTAL (BEAKER) (test jyax=472) 5.6 mg/dL 0.2-1.2 BILIRUBIN DIRECT (BEAKER) (test wvxu=804) 2.6 mg/dL 0.1-0.5 ALKALINE PHOSPHATASE (BEAKER) (test kdss=893) 50 U/L 40-150 AST (SGOT) (BEAKER) (test vegu=596) 30 U/L 5-34 ALT (SGPT) (BEAKER) (test yjje=398) 9 U/L 6-55 Specimen moderately ictericPROTHROMBIN [id number] 05:31:00 Test Item Value Reference Range Comments PROTIME (BEAKER) (test xirn=090) 29.0 seconds 11.7-14.7 INR (BEAKER) (test ffbu=595) 2.7 <=5.9 RECOMMENDED COUMADIN/WARFARIN INR THERAPY RANGESSTANDARD DOSE: 2.0 - 3.0 Includes: PROPHYLAXIS forvenous thrombosis, systemic embolization; TREATMENT for venous thrombosis and/or pulmonary embolus.HIGH RISK: Target INR is 2.5-3.5 for patients with mechanical heart valves.ANAEROBIC [id number] 05:15:00 Test Item Value Reference Range Comments CULTURE (BEAKER) (test uvtl=0370) No anaerobes isolated BLOOD [id number] 00:00:00 Test Item Value Reference Range Comments CULTURE (BEAKER) (test eihq=2459) No growth in 5 days BLOOD [id number] 00:00:00 Test Item Value Reference Range Comments CULTURE (BEAKER) (test nyjq=7797) No growth in 5 days URINALYSIS W/ REFLEX URINE [id number] 08:28:00 Test Item Value Reference Range Comments COLOR (BEAKER) (test wpyf=327) Yellow CLARITY (BEAKER) (test chvi=520) Clear SPECIFIC GRAVITY UA (BEAKER) (test roxo=503) 1.006 1.001-1.035 PH UA (BEAKER) (test mqos=365) 6.5 5.0-8.0 PROTEIN UA (BEAKER) (test uxbl=140) Negative Negative GLUCOSE UA (BEAKER) (test tvof=466) Negative Negative KETONES UA (BEAKER) (test llkv=709) Negative Negative BILIRUBIN UA (BEAKER) (test agey=735) Negative Negative BLOOD UA (BEAKER) (test jytz=563) Negative Negative NITRITE UA (BEAKER) (test gepo=498) Negative Negative LEUKOCYTE ESTERASE UA (BEAKER) (test kwhz=019) Small Negative UROBILINOGEN UA (BEAKER) (test avkr=230) 0.2 mg/dL 0.2-1.0 RBC UA (BEAKER) (test twgt=254) 1 /HPF WBC UA (BEAKER) (test iizr=730) 6 /HPF BACTERIA (BEAKER) (test vcym=339) Rare SOURCE(BEAKER) (test jddk=1592) CBC W/PLT COUNT & AUTO [id number] 07:21:00 Test Item Value Reference Range Comments WHITE BLOOD CELL COUNT (BEAKER) (test anee=231) 5.9 K/ L 4.0-10.0 RED BLOOD CELL COUNT (BEAKER) (test dvlg=239) 2.12 M/ L 4.20-5.80 HEMOGLOBIN (BEAKER) (test yorz=611) 7.3 GM/DL 13.0-16.8 HEMATOCRIT (BEAKER) (test ivzr=017) 22.2 % 40.0-50.0 MEAN CORPUSCULAR VOLUME (BEAKER) (test viox=932) 105.0 fL 82.0-98.0 MEAN CORPUSCULAR HEMOGLOBIN (BEAKER) (test 34.2 pg 27.0-33.0 tfsc=839) MEAN CORPUSCULAR HEMOGLOBIN CONC (BEAKER) (test 32.7 GM/DL 32.0-36.0 bqxc=404) RED CELL DISTRIBUTION WIDTH (BEAKER) (test 13.1 % 10.3-14.2 hvaq=449) PLATELET COUNT (BEAKER) (test cmwu=817) 80 K/CU MM 150-430 MEAN PLATELET VOLUME (BEAKER) (test ansk=542) 6.5 fL 6.5-10.5 NUCLEATED RED BLOOD CELLS (BEAKER) (test 0 /100 WBC 0-0 fwmz=264) NEUTROPHILS RELATIVE PERCENT (BEAKER) (test 67 % nigu=920) LYMPHOCYTES RELATIVE PERCENT (BEAKER) (test 14 % cysb=109) MONOCYTES RELATIVE PERCENT (BEAKER) (test 14 % qcer=678) EOSINOPHILS RELATIVE PERCENT (BEAKER) (test 4 % jqaq=774) BASOPHILS RELATIVE PERCENT (BEAKER) (test 0 % xagx=182) NEUTROPHILS ABSOLUTE COUNT (BEAKER) (test 3.97 K/ L 1.80-8.00 vyzg=197) LYMPHOCYTES ABSOLUTE COUNT (BEAKER) (test 0.85 K/ L 1.48-4.50 pwxt=430) MONOCYTES ABSOLUTE COUNT (BEAKER) (test pvdy=538) 0.81 K/ L 0.00-1.30 EOSINOPHILS ABSOLUTE COUNT (BEAKER) (test 0.25 K/ L 0.00-0.50 dfto=817) BASOPHILS ABSOLUTE COUNT (BEAKER) (test cnah=159) 0.03 K/ L 0.00-0.20 [id number] 06:35:00 Test Item Value Reference Range Comments PHOSPHORUS (BEAKER) (test gmoe=414) 3.5 mg/dL 2.3-4.7 [id number] 06:35:00 Test Item Value Reference Range Comments MAGNESIUM (BEAKER) (test myxq=821) 1.7 mg/dL 1.6-2.6 BASIC METABOLIC [id number] 06:35:00 Test Item Value Reference Range Comments SODIUM (BEAKER) (test 137 meq/L 136-145 sakg=856) POTASSIUM (BEAKER) (test 4.0 meq/L 3.5-5.1 ibii=126) CHLORIDE (BEAKER) (test 109 meq/L 98-107 rfey=813) CO2 (BEAKER) (test 20 meq/L 22-29 xewb=590) BLOOD UREA NITROGEN 13 mg/dL 7-21 (BEAKER) (test cimz=688) CREATININE (BEAKER) (test 1.56 mg/dL 0.57-1.25 gdwo=996) GLUCOSE RANDOM (BEAKER) 85 mg/dL 70-105 (test zpfr=796) CALCIUM (BEAKER) (test 8.4 mg/dL 8.4-10.2 qbsg=583) EGFR (BEAKER) (test 47 mL/min/1.73 sq m ESTIMATED GFR IS NOT vwgw=0925) ACCURATE CREATININE CLEARANCE IN PREDICTING GLOMERULAR FILTRATION RATE. ESTIMATED GFR IS NOT APPLICABLE FOR DIALYSIS PATIENTS. Specimen moderately ictericHEPATIC FUNCTION [id number] 06:35:00 Test Item Value Reference Range Comments TOTAL PROTEIN (BEAKER) (test igow=368) 6.5 gm/dL 6.0-8.3 ALBUMIN (BEAKER) (test kkaw=7855) 3.8 g/dL 3.5-5.0 BILIRUBIN TOTAL (BEAKER) (test ovgy=062) 6.1 mg/dL 0.2-1.2 BILIRUBIN DIRECT (BEAKER) (test oyia=666) 2.9 mg/dL 0.1-0.5 ALKALINE PHOSPHATASE (BEAKER) (test wywc=470) 54 U/L 40-150 AST (SGOT) (BEAKER) (test prvl=029) 28 U/L 5-34 ALT (SGPT) (BEAKER) (test movs=075) 7 U/L 6-55 Specimen moderately ictericPROTHROMBIN [id number] 06:06:00 Test Item Value Reference Range Comments PROTIME (BEAKER) (test iqxo=538) 26.1 seconds 11.7-14.7 INR (BEAKER) (test dzah=770) 2.4 <=5.9 RECOMMENDED COUMADIN/WARFARIN INR THERAPY RANGESSTANDARD DOSE: 2.0 - 3.0 Includes: PROPHYLAXIS forvenous thrombosis, systemic embolization; TREATMENT for venous thrombosis and/or pulmonary embolus.HIGH RISK: Target INR is 2.5-3.5 for patients with mechanical heart valves.CALCIUM, [id number] 06:06:00 Test Item Value Reference Range Comments CALCIUM IONIZED (BEAKER) (test cond=903) 1.06 mmol/L 1.12-1.27 PH, BLOOD (BEAKER) (test bctp=9912) 7.46 SURGICALLY OBTAINED CULTURE + GRAM [id number] 23:51:00 Test Item Value Reference Range Comments CULTURE (BEAKER) (test wwuy=8898) No growth GRAM STAIN RESULT (BEAKER) (test 1+ WBCs dsfd=1863) GRAM STAIN RESULT (BEAKER) (test No organisms seen csqr=13377) BODY FLUID CULTURE + GRAM [id number] 23:42:00 Test Item Value Reference Range Comments CULTURE (BEAKER) (test ygbb=4675) No growth GRAM STAIN RESULT (BEAKER) (test 1+ WBCs pghh=9428) GRAM STAIN RESULT (BEAKER) (test No organisms seen vyps=53125) BODY FLUID CELL COUNT WITH [id number] 19:59:00 Test Item Value Reference Range Comments APPEARANCE FLUID (BEAKER) (test iswz=530) Hazy Clear COLOR FLUID (BEAKER) (test ufbc=977) Yellow Colorless, Straw RBC FLUID (BEAKER) (test xcux=025) 2435 /cu mm <=1 ADJUSTED WBC FLUID (BEAKER) (test ttbc=1767) 441 /cu mm <=5 LINING CELLS (BEAKER) (test pjke=3588) 9 /cu mm <=1 NEUTROPHILS FLUID (BEAKER) (test yrmf=6941) 16 % LYMPHS FLUID (BEAKER) (test zjlk=749) 10 % MONO/MACROPHAGE FLUID (BEAKER) (test vbsb=767) 74 % EOSINOPHILS FLUID (BEAKER) (test uiit=232) 0 % BASO FLUID (BEAKER) (test ronn=338) 0 % CONTAINER BODY FLUID (BEAKER) (test yftf=8595) EDTA Tube [id number] 11:01:00 Test Item Value Reference Range Comments PROCALCITONIN (BEAKER) (test urhg=4856) 0.25 ng/mL <0.05 SEPSIS RISK (ng/mL)Low: 0.05-0.50Intermediate: 0.51-2.00High: & gt;=2.01CBC W/PLT COUNT & AUTO [id number] 08:40:00 Test Item Value Reference Range Comments WHITE BLOOD CELL COUNT (BEAKER) (test rbvu=765) 6.3 K/ L 4.0-10.0 RED BLOOD CELL COUNT (BEAKER) (test belf=216) 2.07 M/ L 4.20-5.80 HEMOGLOBIN (BEAKER) (test hsli=927) 7.1 GM/DL 13.0-16.8 HEMATOCRIT (BEAKER) (test yytz=140) 21.9 % 40.0-50.0 MEAN CORPUSCULAR VOLUME (BEAKER) (test tfgs=873) 106.0 fL 82.0-98.0 MEAN CORPUSCULAR HEMOGLOBIN (BEAKER) (test 34.1 pg 27.0-33.0 wqgd=072) MEAN CORPUSCULAR HEMOGLOBIN CONC (BEAKER) (test 32.2 GM/DL 32.0-36.0 fnjo=503) RED CELL DISTRIBUTION WIDTH (BEAKER) (test 13.1 % 10.3-14.2 jvdl=601) PLATELET COUNT (BEAKER) (test wahk=582) 78 K/CU MM 150-430 MEAN PLATELET VOLUME (BEAKER) (test cvxp=930) 6.6 fL 6.5-10.5 NUCLEATED RED BLOOD CELLS (BEAKER) (test 0 /100 WBC 0-0 zewp=745) NEUTROPHILS RELATIVE PERCENT (BEAKER) (test 73 % xerx=307) LYMPHOCYTES RELATIVE PERCENT (BEAKER) (test 10 % trzl=298) MONOCYTES RELATIVE PERCENT (BEAKER) (test 13 % vmog=408) EOSINOPHILS RELATIVE PERCENT (BEAKER) (test 4 % mcko=572) BASOPHILS RELATIVE PERCENT (BEAKER) (test 0 % zzuy=816) NEUTROPHILS ABSOLUTE COUNT (BEAKER) (test 4.60 K/ L 1.80-8.00 yvcv=473) LYMPHOCYTES ABSOLUTE COUNT (BEAKER) (test 0.64 K/ L 1.48-4.50 qlbo=557) MONOCYTES ABSOLUTE COUNT (BEAKER) (test aegc=345) 0.81 K/ L 0.00-1.30 EOSINOPHILS ABSOLUTE COUNT (BEAKER) (test 0.23 K/ L 0.00-0.50 saec=269) BASOPHILS ABSOLUTE COUNT (BEAKER) (test sndi=327) 0.01 K/ L 0.00-0.20 [id number] 06:50:00 Test Item Value Reference Range Comments PHOSPHORUS (BEAKER) (test jsjg=703) 3.0 mg/dL 2.3-4.7 [id number] 06:50:00 Test Item Value Reference Range Comments MAGNESIUM (BEAKER) (test jmrx=682) 1.9 mg/dL 1.6-2.6 BASIC METABOLIC [id number] 06:50:00 Test Item Value Reference Range Comments SODIUM (BEAKER) (test 135 meq/L 136-145 mivn=818) POTASSIUM (BEAKER) (test 4.2 meq/L 3.5-5.1 liha=589) CHLORIDE (BEAKER) (test 106 meq/L 98-107 koqm=924) CO2 (BEAKER) (test 21 meq/L 22-29 tjex=993) BLOOD UREA NITROGEN 19 mg/dL 7-21 (BEAKER) (test tzzp=910) CREATININE (BEAKER) (test 1.62 mg/dL 0.57-1.25 wjin=446) GLUCOSE RANDOM (BEAKER) 98 mg/dL 70-105 (test kmuu=851) CALCIUM (BEAKER) (test 8.6 mg/dL 8.4-10.2 nttc=598) EGFR (BEAKER) (test 45 mL/min/1.73 sq m ESTIMATED GFR IS NOT zoii=8476) ACCURATE CREATININE CLEARANCE IN PREDICTING GLOMERULAR FILTRATION RATE. ESTIMATED GFR IS NOT APPLICABLE FOR DIALYSIS PATIENTS. Specimen moderately ictericHEPATIC FUNCTION [id number] 06:50:00 Test Item Value Reference Range Comments TOTAL PROTEIN (BEAKER) (test sqav=972) 6.3 gm/dL 6.0-8.3 ALBUMIN (BEAKER) (test lavx=6690) 3.7 g/dL 3.5-5.0 BILIRUBIN TOTAL (BEAKER) (test bpoo=978) 6.2 mg/dL 0.2-1.2 BILIRUBIN DIRECT (BEAKER) (test wits=762) 2.8 mg/dL 0.1-0.5 ALKALINE PHOSPHATASE (BEAKER) (test lhgw=960) 54 U/L 40-150 AST (SGOT) (BEAKER) (test fuoz=292) 29 U/L 5-34 ALT (SGPT) (BEAKER) (test vtmw=298) 8 U/L 6-55 Specimen moderately ictericCALCIUM, [id number] 06:48:00 Test Item Value Reference Range Comments CALCIUM IONIZED (BEAKER) (test jsbo=864) 1.12 mmol/L 1.12-1.27 PH, BLOOD (BEAKER) (test atby=8141) 7.33 PROTHROMBIN [id number] 06:24:00 Test Item Value Reference Range Comments PROTIME (BEAKER) (test mggj=945) 25.4 seconds 11.7-14.7 INR (BEAKER) (test tllm=064) 2.3 <=5.9 RECOMMENDED COUMADIN/WARFARIN INR THERAPY RANGESSTANDARD DOSE: 2.0 - 3.0 Includes: PROPHYLAXIS forvenous thrombosis, systemic embolization; TREATMENT for venous thrombosis and/or pulmonary embolus.HIGH RISK: Target INR is 2.5-3.5 for patients with mechanical heart valves.[id number] 11:17:00 Test Item Value Reference Range Comments FIBRINOGEN LEVEL (BEAKER) (test jame=721) 115 mg/dl 225-434 CALCIUM, [id number] 06:04:00 Test Item Value Reference Range Comments CALCIUM IONIZED (BEAKER) (test vear=934) 1.08 mmol/L 1.12-1.27 PH, BLOOD (BEAKER) (test atsf=4845) 7.41 CBC W/PLT COUNT & AUTO [id number] 05:28:00 Test Item Value Reference Range Comments WHITE BLOOD CELL COUNT (BEAKER) (test arpp=217) 5.6 K/ L 4.0-10.0 RED BLOOD CELL COUNT (BEAKER) (test hmub=213) 2.00 M/ L 4.20-5.80 HEMOGLOBIN (BEAKER) (test npzp=070) 7.2 GM/DL 13.0-16.8 HEMATOCRIT (BEAKER) (test icav=458) 21.2 % 40.0-50.0 MEAN CORPUSCULAR VOLUME (BEAKER) (test mmwf=019) 106.0 fL 82.0-98.0 MEAN CORPUSCULAR HEMOGLOBIN (BEAKER) (test 36.0 pg 27.0-33.0 bvkr=235) MEAN CORPUSCULAR HEMOGLOBIN CONC (BEAKER) (test 34.0 GM/DL 32.0-36.0 yztx=446) RED CELL DISTRIBUTION WIDTH (BEAKER) (test 13.9 % 10.3-14.2 seis=894) PLATELET COUNT (BEAKER) (test tvvz=565) 74 K/CU MM 150-430 MEAN PLATELET VOLUME (BEAKER) (test gfax=624) 6.6 fL 6.5-10.5 NUCLEATED RED BLOOD CELLS (BEAKER) (test 0 /100 WBC 0-0 sgzg=512) NEUTROPHILS RELATIVE PERCENT (BEAKER) (test 66 % qdld=016) LYMPHOCYTES RELATIVE PERCENT (BEAKER) (test 14 % gvtp=286) MONOCYTES RELATIVE PERCENT (BEAKER) (test 13 % mmlm=497) EOSINOPHILS RELATIVE PERCENT (BEAKER) (test 7 % vhme=510) BASOPHILS RELATIVE PERCENT (BEAKER) (test 0 % kkfp=086) NEUTROPHILS ABSOLUTE COUNT (BEAKER) (test 3.67 K/ L 1.80-8.00 szug=751) LYMPHOCYTES ABSOLUTE COUNT (BEAKER) (test 0.80 K/ L 1.48-4.50 zybr=398) MONOCYTES ABSOLUTE COUNT (BEAKER) (test rugz=229) 0.69 K/ L 0.00-1.30 EOSINOPHILS ABSOLUTE COUNT (BEAKER) (test 0.38 K/ L 0.00-0.50 xnco=154) BASOPHILS ABSOLUTE COUNT (BEAKER) (test rzsg=649) 0.02 K/ L 0.00-0.20 0.00PROTHROMBIN [id number] 05:11:00 Test Item Value Reference Range Comments PROTIME (BEAKER) (test soqe=320) 25.9 seconds 11.7-14.7 INR (BEAKER) (test oxca=157) 2.4 <=5.9 RECOMMENDED COUMADIN/WARFARIN INR THERAPY RANGESSTANDARD DOSE: 2.0 - 3.0 Includes: PROPHYLAXIS forvenous thrombosis, systemic embolization; TREATMENT for venous thrombosis and/or pulmonary embolus.HIGH RISK: Target INR is 2.5-3.5 for patients with mechanical heart valves.[id number] 05:03:00 Test Item Value Reference Range Comments PHOSPHORUS (BEAKER) (test korb=629) 3.5 mg/dL 2.3-4.7 [id number] 05:03:00 Test Item Value Reference Range Comments MAGNESIUM (BEAKER) (test bpcp=468) 1.7 mg/dL 1.6-2.6 BASIC METABOLIC [id number] 05:03:00 Test Item Value Reference Range Comments SODIUM (BEAKER) (test 135 meq/L 136-145 jlex=885) POTASSIUM (BEAKER) (test 4.0 meq/L 3.5-5.1 lewz=153) CHLORIDE (BEAKER) (test 107 meq/L 98-107 yhmq=438) CO2 (BEAKER) (test 20 meq/L 22-29 nswx=671) BLOOD UREA NITROGEN 22 mg/dL 7-21 (BEAKER) (test etyn=951) CREATININE (BEAKER) (test 1.77 mg/dL 0.57-1.25 fyzj=591) GLUCOSE RANDOM (BEAKER) 83 mg/dL 70-105 (test qzxg=366) CALCIUM (BEAKER) (test 8.3 mg/dL 8.4-10.2 hlcm=050) EGFR (BEAKER) (test 41 mL/min/1.73 sq m ESTIMATED GFR IS NOT quui=2624) ACCURATE CREATININE CLEARANCE IN PREDICTING GLOMERULAR FILTRATION RATE. ESTIMATED GFR IS NOT APPLICABLE FOR DIALYSIS PATIENTS. Specimen moderately ictericHEPATIC FUNCTION [id number] 05:03:00 Test Item Value Reference Range Comments TOTAL PROTEIN (BEAKER) (test jvsi=337) 6.2 gm/dL 6.0-8.3 ALBUMIN (BEAKER) (test chqa=7546) 3.7 g/dL 3.5-5.0 BILIRUBIN TOTAL (BEAKER) (test lacy=222) 6.0 mg/dL 0.2-1.2 BILIRUBIN DIRECT (BEAKER) (test jtjm=616) 2.6 mg/dL 0.1-0.5 ALKALINE PHOSPHATASE (BEAKER) (test ebzk=228) 48 U/L 40-150 AST (SGOT) (BEAKER) (test dgul=076) 26 U/L 5-34 ALT (SGPT) (BEAKER) (test wctc=705) 8 U/L 6-55 Specimen moderately ictericURINE [id number] 14:42:00 Test Item Value Reference Range Comments CULTURE (BEAKER) (test cxob=4551) No growth ANTI-NUCLEAR ANTIBODY (CHERYL)[id number] 13:32:00 Test Item Value Reference Range Comments ANTI-NUCLEAR ANTIBODY (CHERYL) (BEAKER) (test Negative Negative aagu=989) PLATELET [id number] 06:30:00 Test Item Value Reference Range Comments PLATELET COUNT (BEAKER) (test spwv=339) 104 K/CU MM 150-430 [id number] 06:22:00 Test Item Value Reference Range Comments FIBRINOGEN LEVEL (BEAKER) (test nmoh=912) 106 mg/dl 225-434 [id number] 06:16:00 Test Item Value Reference Range Comments PARTIAL THROMBOPLASTIN TIME (BEAKER) (test 48.1 seconds 22.5-36.0 dbpa=305) PROTHROMBIN [id number] 06:15:00 Test Item Value Reference Range Comments PROTIME (BEAKER) (test cttg=790) 23.5 seconds 11.7-14.7 INR (BEAKER) (test ciep=740) 2.1 <=5.9 RECOMMENDED COUMADIN/WARFARIN INR THERAPY RANGESSTANDARD DOSE: 2.0 - 3.0 Includes: PROPHYLAXIS forvenous thrombosis, systemic embolization; TREATMENT for venous thrombosis and/or pulmonary embolus.HIGH RISK: Target INR is 2.5-3.5 for patients with mechanical heart valves.[id number] 06:12:00 Test Item Value Reference Range Comments MAGNESIUM (BEAKER) (test 2.0 mg/dL 1.6-2.6 Specimen slightly hemolyzed orbx=915) [id number] 06:12:00 Test Item Value Reference Range Comments PHOSPHORUS (BEAKER) (test 5.0 mg/dL 2.3-4.7 Specimen slightly hemolyzed tsym=050) BASIC METABOLIC [id number] 06:12:00 Test Item Value Reference Range Comments SODIUM (BEAKER) (test 135 meq/L 136-145 wgkv=222) POTASSIUM (BEAKER) (test 4.7 meq/L 3.5-5.1 Specimen slightly udac=121) hemolyzed CHLORIDE (BEAKER) (test 107 meq/L 98-107 zuic=524) CO2 (BEAKER) (test 20 meq/L 22-29 peak=604) BLOOD UREA NITROGEN 18 mg/dL 7-21 (BEAKER) (test moco=033) CREATININE (BEAKER) (test 1.74 mg/dL 0.57-1.25 Specimen slightly qads=389) hemolyzed GLUCOSE RANDOM (BEAKER) 76 mg/dL 70-105 (test zvdz=704) CALCIUM (BEAKER) (test 8.1 mg/dL 8.4-10.2 naff=175) EGFR (BEAKER) (test 42 mL/min/1.73 sq m ESTIMATED GFR IS NOT lvhh=6820) ACCURATE CREATININE CLEARANCE IN PREDICTING GLOMERULAR FILTRATION RATE. ESTIMATED GFR IS NOT APPLICABLE FOR DIALYSIS PATIENTS. Specimen moderately ictericHEPATIC FUNCTION [id number] 06:12:00 Test Item Value Reference Range Comments TOTAL PROTEIN (BEAKER) (test 6.6 gm/dL 6.0-8.3 Specimen slightly hemolyzed rlsh=794) ALBUMIN (BEAKER) (test 3.7 g/dL 3.5-5.0 Specimen slightly hemolyzed xtjc=2943) BILIRUBIN TOTAL (BEAKER) (test 5.7 mg/dL 0.2-1.2 Specimen slightly hemolyzed xykt=063) BILIRUBIN DIRECT (BEAKER) (test 2.7 mg/dL 0.1-0.5 Specimen slightly hemolyzed fesj=374) ALKALINE PHOSPHATASE (BEAKER) 56 U/L 40-150 (test zbgd=057) AST (SGOT) (BEAKER) (test 29 U/L 5-34 Specimen slightly hemolyzed ovbh=714) ALT (SGPT) (BEAKER) (test 7 U/L 6-55 Specimen slightly hemolyzed wbdb=654) Specimen moderately ictericLACTIC ACID, VENOUS, WHOLE [id number] 06:04:00 Test Item Value Reference Range Comments LACTATE BLOOD VENOUS (2) (BEAKER) (test 1.0 mmol/L 0.5-2.2 fbay=9500) Effective 02/28/2016: Units/Reference Range ChangeNew: 0.5-2.2 mmol/L Previous: 5 -20 mg/dLSpecimen moderately ictericCALCIUM, [id number] 05:56:00 Test Item Value Reference Range Comments CALCIUM IONIZED (BEAKER) (test twxw=195) 1.00 mmol/L 1.12-1.27 PH, BLOOD (BEAKER) (test rvho=8708) 7.34 [id number] 21:34:00 Test Item Value Reference Range Comments FIBRINOGEN LEVEL (BEAKER) (test uiii=253) 105 mg/dl 225-434 PLATELET [id number] 20:52:00 Test Item Value Reference Range Comments PLATELET COUNT (BEAKER) (test unqg=634) 77 K/CU MM 150-430 [id number] 20:51:00 Test Item Value Reference Range Comments PROTIME (BEAKER) (test vovz=603) 21.1 seconds 11.7-14.7 INR (BEAKER) (test cpuu=010) 1.8 <=5.9 PARTIAL THROMBOPLASTIN TIME (BEAKER) (test 47.3 seconds 22.5-36.0 uhvt=739) RECOMMENDED COUMADIN/WARFARIN INR THERAPY RANGESSTANDARD DOSE: 2.0 - 3.0 Includes: PROPHYLAXIS forvenous thrombosis, systemic embolization; TREATMENT for venous thrombosis and/or pulmonary embolus.HIGH RISK: Target INR is 2.5-3.5 for patients with mechanical heart valves.[id number] 20:51:00 Test Item Value Reference Range Comments PARTIAL THROMBOPLASTIN TIME (BEAKER) (test 47.3 seconds 22.5-36.0 iqup=141) PROTHROMBIN [id number] 20:50:00 Test Item Value Reference Range Comments PROTIME (BEAKER) (test dxlj=584) 21.1 seconds 11.7-14.7 INR (BEAKER) (test ooup=357) 1.8 <=5.9 RECOMMENDED COUMADIN/WARFARIN INR THERAPY RANGESSTANDARD DOSE: 2.0 - 3.0 Includes: PROPHYLAXIS forvenous thrombosis, systemic embolization; TREATMENT for venous thrombosis and/or pulmonary embolus.HIGH RISK: Target INR is 2.5-3.5 for patients with mechanical heart valves.[id number] 19:30:00 Test Item Value Reference Range Comments PARTIAL THROMBOPLASTIN TIME (BEAKER) (test 45.1 seconds 22.5-36.0 ilzf=419) PROTHROMBIN TIME/[id number] 19:29:00 Test Item Value Reference Range Comments PROTIME (BEAKER) (test bndb=100) 28.2 seconds 11.7-14.7 INR (BEAKER) (test kkiv=946) 2.6 <=5.9 RECOMMENDED COUMADIN/WARFARIN INR THERAPY RANGESSTANDARD DOSE: 2.0 - 3.0 Includes: PROPHYLAXIS forvenous thrombosis, systemic embolization; TREATMENT for venous thrombosis and/or pulmonary embolus.HIGH RISK: Target INR is 2.5-3.5 for patients with mechanical heart valves.BODY FLUID CELL COUNT WITH [id number] 18:53:00 Test Item Value Reference Range Comments APPEARANCE FLUID (BEAKER) (test yylh=511) Hazy Clear COLOR FLUID (BEAKER) (test xjeh=495) Yellow Colorless, Straw RBC FLUID (BEAKER) (test nqhq=535) 900 /cu mm <=1 ADJUSTED WBC FLUID (BEAKER) (test auwe=8708) 306 /cu mm <=5 LINING CELLS (BEAKER) (test pgzu=2539) 64 /cu mm <=1 NEUTROPHILS FLUID (BEAKER) (test kkdg=0156) 4 % LYMPHS FLUID (BEAKER) (test jyqp=617) 18 % MONO/MACROPHAGE FLUID (BEAKER) (test mtla=779) 78 % EOSINOPHILS FLUID (BEAKER) (test dujl=568) 0 % BASO FLUID (BEAKER) (test eckh=049) 0 % CONTAINER BODY FLUID (BEAKER) (test cjwo=8332) EDTA Tube [id number] 16:56:00 Test Item Value Reference Range Comments AMYLASE (BEAKER) (test qqkx=618) 37 U/L 25-125 Specimen moderately ictericCOMPREHENSIVE METABOLIC [id number] 16:56:00 Test Item Value Reference Range Comments TOTAL PROTEIN (BEAKER) 6.1 gm/dL 6.0-8.3 (test seeh=022) ALBUMIN (BEAKER) (test 3.2 g/dL 3.5-5.0 ncsc=2040) ALKALINE PHOSPHATASE 67 U/L 40-150 (BEAKER) (test ijvz=572) BILIRUBIN TOTAL (BEAKER) 5.7 mg/dL 0.2-1.2 (test dcjc=401) SODIUM (BEAKER) (test 134 meq/L 136-145 ghmk=852) POTASSIUM (BEAKER) (test 3.8 meq/L 3.5-5.1 jtza=247) CHLORIDE (BEAKER) (test 106 meq/L 98-107 rwib=265) CO2 (BEAKER) (test 19 meq/L 22-29 sapy=500) BLOOD UREA NITROGEN 18 mg/dL 7-21 (BEAKER) (test kzqp=704) CREATININE (BEAKER) (test 1.52 mg/dL 0.57-1.25 suzw=570) GLUCOSE RANDOM (BEAKER) 112 mg/dL 70-105 (test ahyo=819) CALCIUM (BEAKER) (test 8.3 mg/dL 8.4-10.2 jkfe=392) AST (SGOT) (BEAKER) (test 28 U/L 5-34 uozn=377) ALT (SGPT) (BEAKER) (test 10 U/L 6-55 lieg=652) EGFR (BEAKER) (test 49 mL/min/1.73 sq m ESTIMATED GFR IS NOT awrz=6746) ACCURATE CREATININE CLEARANCE IN PREDICTING GLOMERULAR FILTRATION RATE. ESTIMATED GFR IS NOT APPLICABLE FOR DIALYSIS PATIENTS. Specimen moderately [id number] 16:56:00 Test Item Value Reference Range Comments LIPASE (BEAKER) (test zriq=066) 52 U/L 8-78 Specimen moderately ictericCBC W/PLT COUNT & AUTO [id number] 16: 27:00 Test Item Value Reference Range Comments WHITE BLOOD CELL COUNT (BEAKER) (test xpho=742) 3.7 K/ L 4.0-10.0 RED BLOOD CELL COUNT (BEAKER) (test ivmn=168) 2.16 M/ L 4.20-5.80 HEMOGLOBIN (BEAKER) (test modv=818) 7.8 GM/DL 13.0-16.8 HEMATOCRIT (BEAKER) (test idgr=341) 23.1 % 40.0-50.0 MEAN CORPUSCULAR VOLUME (BEAKER) (test krrg=591) 107.0 fL 82.0-98.0 MEAN CORPUSCULAR HEMOGLOBIN (BEAKER) (test 36.0 pg 27.0-33.0 anci=242) MEAN CORPUSCULAR HEMOGLOBIN CONC (BEAKER) (test 33.6 GM/DL 32.0-36.0 wacw=061) RED CELL DISTRIBUTION WIDTH (BEAKER) (test 13.9 % 10.3-14.2 stgv=310) PLATELET COUNT (BEAKER) (test dpgo=679) 78 K/CU MM 150-430 MEAN PLATELET VOLUME (BEAKER) (test afdz=420) 6.2 fL 6.5-10.5 NUCLEATED RED BLOOD CELLS (BEAKER) (test 0 /100 WBC 0-0 ghyl=258) NEUTROPHILS RELATIVE PERCENT (BEAKER) (test 50 % vuiw=772) LYMPHOCYTES RELATIVE PERCENT (BEAKER) (test 25 % snbl=830) MONOCYTES RELATIVE PERCENT (BEAKER) (test 19 % lmjf=788) EOSINOPHILS RELATIVE PERCENT (BEAKER) (test 6 % bhzd=234) BASOPHILS RELATIVE PERCENT (BEAKER) (test 1 % ydva=465) NEUTROPHILS ABSOLUTE COUNT (BEAKER) (test 1.82 K/ L 1.80-8.00 vpyo=765) LYMPHOCYTES ABSOLUTE COUNT (BEAKER) (test 0.91 K/ L 1.48-4.50 qntm=120) MONOCYTES ABSOLUTE COUNT (BEAKER) (test agib=232) 0.69 K/ L 0.00-1.30 EOSINOPHILS ABSOLUTE COUNT (BEAKER) (test 0.21 K/ L 0.00-0.50 pvdv=809) BASOPHILS ABSOLUTE COUNT (BEAKER) (test lvin=205) 0.02 K/ L 0.00-0.20 0.00HEPATIC FUNCTION [id number] 08:34:00 Test Item Value Reference Range Comments TOTAL PROTEIN (BEAKER) (test idyj=080) 5.9 gm/dL 6.0-8.3 ALBUMIN (BEAKER) (test knqa=1316) 3.2 g/dL 3.5-5.0 BILIRUBIN TOTAL (BEAKER) (test auju=995) 5.4 mg/dL 0.2-1.2 BILIRUBIN DIRECT (BEAKER) (test dnbm=438) 2.5 mg/dL 0.1-0.5 ALKALINE PHOSPHATASE (BEAKER) (test iqpu=439) 60 U/L 40-150 AST (SGOT) (BEAKER) (test kyvr=424) 28 U/L 5-34 ALT (SGPT) (BEAKER) (test akqt=317) 10 U/L 6-55 Specimen moderately [id number] 08:16:00 Test Item Value Reference Range Comments PHOSPHORUS (BEAKER) (test lvpn=857) 3.0 mg/dL 2.3-4.7 [id number] 08:16:00 Test Item Value Reference Range Comments MAGNESIUM (BEAKER) (test ydsa=701) 1.6 mg/dL 1.6-2.6 BASIC METABOLIC [id number] 08:16:00 Test Item Value Reference Range Comments SODIUM (BEAKER) (test 133 meq/L 136-145 vnot=428) POTASSIUM (BEAKER) (test 3.6 meq/L 3.5-5.1 efnm=561) CHLORIDE (BEAKER) (test 105 meq/L 98-107 zoed=607) CO2 (BEAKER) (test 20 meq/L 22-29 ufiu=279) BLOOD UREA NITROGEN 18 mg/dL 7-21 (BEAKER) (test uypj=208) CREATININE (BEAKER) (test 1.54 mg/dL 0.57-1.25 fzes=788) GLUCOSE RANDOM (BEAKER) 70 mg/dL 70-105 (test istp=033) CALCIUM (BEAKER) (test 8.2 mg/dL 8.4-10.2 uxxe=706) EGFR (BEAKER) (test 48 mL/min/1.73 sq m ESTIMATED GFR IS NOT vbny=8051) ACCURATE CREATININE CLEARANCE IN PREDICTING GLOMERULAR FILTRATION RATE. ESTIMATED GFR IS NOT APPLICABLE FOR DIALYSIS PATIENTS. Specimen moderately ictericCBC W/PLT COUNT & AUTO [id number] 08: 06:00 Test Item Value Reference Range Comments WHITE BLOOD CELL COUNT (BEAKER) (test bksx=040) 3.4 K/ L 4.0-10.0 RED BLOOD CELL COUNT (BEAKER) (test qbgw=520) 2.03 M/ L 4.20-5.80 HEMOGLOBIN (BEAKER) (test zfvz=145) 7.3 GM/DL 13.0-16.8 HEMATOCRIT (BEAKER) (test huiu=511) 21.6 % 40.0-50.0 MEAN CORPUSCULAR VOLUME (BEAKER) (test dmbc=345) 106.0 fL 82.0-98.0 MEAN CORPUSCULAR HEMOGLOBIN (BEAKER) (test 35.8 pg 27.0-33.0 abpr=559) MEAN CORPUSCULAR HEMOGLOBIN CONC (BEAKER) (test 33.7 GM/DL 32.0-36.0 ejgz=987) RED CELL DISTRIBUTION WIDTH (BEAKER) (test 13.5 % 10.3-14.2 jzmp=326) PLATELET COUNT (BEAKER) (test euzc=517) 82 K/CU MM 150-430 MEAN PLATELET VOLUME (BEAKER) (test rsfj=969) 6.7 fL 6.5-10.5 NUCLEATED RED BLOOD CELLS (BEAKER) (test 0 /100 WBC 0-0 grex=496) NEUTROPHILS RELATIVE PERCENT (BEAKER) (test 50 % xjdr=955) LYMPHOCYTES RELATIVE PERCENT (BEAKER) (test 25 % qfpb=116) MONOCYTES RELATIVE PERCENT (BEAKER) (test 19 % xgyn=124) EOSINOPHILS RELATIVE PERCENT (BEAKER) (test 5 % obrd=010) BASOPHILS RELATIVE PERCENT (BEAKER) (test 1 % oqgx=566) NEUTROPHILS ABSOLUTE COUNT (BEAKER) (test 1.69 K/ L 1.80-8.00 vkil=357) LYMPHOCYTES ABSOLUTE COUNT (BEAKER) (test 0.83 K/ L 1.48-4.50 hufl=893) MONOCYTES ABSOLUTE COUNT (BEAKER) (test bjkd=818) 0.65 K/ L 0.00-1.30 EOSINOPHILS ABSOLUTE COUNT (BEAKER) (test 0.17 K/ L 0.00-0.50 uoql=508) BASOPHILS ABSOLUTE COUNT (BEAKER) (test wmvq=129) 0.04 K/ L 0.00-0.20 0.00PROTHROMBIN [id number] 08:01:00 Test Item Value Reference Range Comments PROTIME (BEAKER) (test vgwd=349) 27.6 seconds 11.7-14.7 INR (BEAKER) (test vkfr=590) 2.6 <=5.9 RECOMMENDED COUMADIN/WARFARIN INR THERAPY RANGESSTANDARD DOSE: 2.0 - 3.0 Includes: PROPHYLAXIS forvenous thrombosis, systemic embolization; TREATMENT for venous thrombosis and/or pulmonary embolus.HIGH RISK: Target INR is 2.5-3.5 for patients with mechanical heart valves.CALCIUM, [id number] 07:58:00 Test Item Value Reference Range Comments CALCIUM IONIZED (BEAKER) (test zalh=308) 1.00 mmol/L 1.12-1.27 PH, BLOOD (BEAKER) (test pwvu=0993) 7.53 URINALYSIS W/ [id number] 18:42:00 Test Item Value Reference Range Comments COLOR (BEAKER) (test ygbd=371) Yellow CLARITY (BEAKER) (test bhuw=264) Clear SPECIFIC GRAVITY UA (BEAKER) (test 1.009 1.001-1.035 jhyd=484) PH UA (BEAKER) (test jncu=558) 7.5 5.0-8.0 PROTEIN UA (BEAKER) (test vkug=725) Negative Negative GLUCOSE UA (BEAKER) (test dlrf=179) Negative Negative KETONES UA (BEAKER) (test xbpb=686) Negative Negative BILIRUBIN UA (BEAKER) (test ijmq=771) Negative Negative BLOOD UA (BEAKER) (test cdkx=599) Negative Negative NITRITE UA (BEAKER) (test walm=070) Negative Negative LEUKOCYTE ESTERASE UA (BEAKER) (test Negative Negative hpeu=838) UROBILINOGEN UA (BEAKER) (test mwlf=149) 3.0 mg/dL 0.2-1.0 RBC UA (BEAKER) (test rrut=083) 6 /HPF WBC UA (BEAKER) (test wcrj=878) 1 /HPF SOURCE(BEAKER) (test jyfo=0440) Urine, Clean Catch PROTHROMBIN [id number] 15:13:00 Test Item Value Reference Range Comments PROTIME (BEAKER) (test dzsq=559) 31.4 seconds 11.7-14.7 INR (BEAKER) (test vhbq=338) 3.0 <=5.9 RECOMMENDED COUMADIN/WARFARIN INR THERAPY RANGESSTANDARD DOSE: 2.0 - 3.0 Includes: PROPHYLAXIS forvenous thrombosis, systemic embolization; TREATMENT for venous thrombosis and/or pulmonary embolus.HIGH RISK: Target INR is 2.5-3.5 for patients with mechanical heart valves.Draw after vitamin K administrationCBC W/PLT COUNT & AUTO [id number] 07:02:00 Test Item Value Reference Range Comments WHITE BLOOD CELL COUNT (BEAKER) (test gizm=436) 3.0 K/ L 4.0-10.0 RED BLOOD CELL COUNT (BEAKER) (test xklt=746) 2.21 M/ L 4.20-5.80 HEMOGLOBIN (BEAKER) (test piag=330) 7.5 GM/DL 13.0-16.8 HEMATOCRIT (BEAKER) (test ctjz=806) 23.5 % 40.0-50.0 MEAN CORPUSCULAR VOLUME (BEAKER) (test vgla=541) 106.0 fL 82.0-98.0 MEAN CORPUSCULAR HEMOGLOBIN (BEAKER) (test 34.0 pg 27.0-33.0 ekwu=329) MEAN CORPUSCULAR HEMOGLOBIN CONC (BEAKER) (test 32.0 GM/DL 32.0-36.0 xkrg=380) RED CELL DISTRIBUTION WIDTH (BEAKER) (test 13.0 % 10.3-14.2 afhs=629) PLATELET COUNT (BEAKER) (test tqno=373) 81 K/CU MM 150-430 MEAN PLATELET VOLUME (BEAKER) (test mlqp=071) 6.3 fL 6.5-10.5 NUCLEATED RED BLOOD CELLS (BEAKER) (test 0 /100 WBC 0-0 xyoc=169) NEUTROPHILS RELATIVE PERCENT (BEAKER) (test 52 % lqxl=694) LYMPHOCYTES RELATIVE PERCENT (BEAKER) (test 24 % auqq=409) MONOCYTES RELATIVE PERCENT (BEAKER) (test 20 % ievu=038) EOSINOPHILS RELATIVE PERCENT (BEAKER) (test 3 % ijxb=030) BASOPHILS RELATIVE PERCENT (BEAKER) (test 1 % ifwh=626) NEUTROPHILS ABSOLUTE COUNT (BEAKER) (test 1.53 K/ L 1.80-8.00 elfv=118) LYMPHOCYTES ABSOLUTE COUNT (BEAKER) (test 0.71 K/ L 1.48-4.50 rmdv=406) MONOCYTES ABSOLUTE COUNT (BEAKER) (test mykd=267) 0.60 K/ L 0.00-1.30 EOSINOPHILS ABSOLUTE COUNT (BEAKER) (test 0.10 K/ L 0.00-0.50 zgez=591) BASOPHILS ABSOLUTE COUNT (BEAKER) (test lsue=518) 0.03 K/ L 0.00-0.20 0.00BASIC METABOLIC [id number] 06:29:00 Test Item Value Reference Range Comments SODIUM (BEAKER) (test 135 meq/L 136-145 qksw=525) POTASSIUM (BEAKER) (test 4.0 meq/L 3.5-5.1 ugpv=758) CHLORIDE (BEAKER) (test 106 meq/L 98-107 mgav=295) CO2 (BEAKER) (test 22 meq/L 22-29 yzog=737) BLOOD UREA NITROGEN 17 mg/dL 7-21 (BEAKER) (test tkdl=538) CREATININE (BEAKER) (test 1.46 mg/dL 0.57-1.25 fglm=373) GLUCOSE RANDOM (BEAKER) 75 mg/dL 70-105 (test qipq=719) CALCIUM (BEAKER) (test 8.0 mg/dL 8.4-10.2 vftc=527) EGFR (BEAKER) (test 51 mL/min/1.73 sq m ESTIMATED GFR IS NOT hqqf=0237) ACCURATE CREATININE CLEARANCE IN PREDICTING GLOMERULAR FILTRATION RATE. ESTIMATED GFR IS NOT APPLICABLE FOR DIALYSIS PATIENTS. Specimen moderately ictericHEPATIC FUNCTION [id number] 06:29:00 Test Item Value Reference Range Comments TOTAL PROTEIN (BEAKER) (test vpvx=749) 5.9 gm/dL 6.0-8.3 ALBUMIN (BEAKER) (test melf=6144) 3.0 g/dL 3.5-5.0 BILIRUBIN TOTAL (BEAKER) (test cser=627) 5.4 mg/dL 0.2-1.2 BILIRUBIN DIRECT (BEAKER) (test iiin=076) 2.7 mg/dL 0.1-0.5 ALKALINE PHOSPHATASE (BEAKER) (test sxbb=418) 65 U/L 40-150 AST (SGOT) (BEAKER) (test xqqb=052) 27 U/L 5-34 ALT (SGPT) (BEAKER) (test zati=346) 7 U/L 6-55 Specimen moderately ictericPROTHROMBIN [id number] 06:23:00 Test Item Value Reference Range Comments PROTIME (BEAKER) (test nfpw=686) 31.2 seconds 11.7-14.7 INR (BEAKER) (test qnvc=275) 3.0 <=5.9 RECOMMENDED COUMADIN/WARFARIN INR THERAPY RANGESSTANDARD DOSE: 2.0 - 3.0 Includes: PROPHYLAXIS forvenous thrombosis, systemic embolization; TREATMENT for venous thrombosis and/or pulmonary embolus.HIGH RISK: Target INR is 2.5-3.5 for patients with mechanical heart valves.CBC W/PLT COUNT & AUTO [id number] 06:26:00 Test Item Value Reference Range Comments WHITE BLOOD CELL COUNT (BEAKER) (test qwzv=870) 3.0 K/ L 4.0-10.0 RED BLOOD CELL COUNT (BEAKER) (test kvin=541) 2.16 M/ L 4.20-5.80 HEMOGLOBIN (BEAKER) (test szol=990) 7.4 GM/DL 13.0-16.8 HEMATOCRIT (BEAKER) (test brkv=237) 23.1 % 40.0-50.0 MEAN CORPUSCULAR VOLUME (BEAKER) (test ongx=525) 107.0 fL 82.0-98.0 MEAN CORPUSCULAR HEMOGLOBIN (BEAKER) (test 34.4 pg 27.0-33.0 mgxg=425) MEAN CORPUSCULAR HEMOGLOBIN CONC (BEAKER) (test 32.1 GM/DL 32.0-36.0 alhp=605) RED CELL DISTRIBUTION WIDTH (BEAKER) (test 13.1 % 10.3-14.2 pajo=828) PLATELET COUNT (BEAKER) (test mbdf=867) 72 K/CU MM 150-430 MEAN PLATELET VOLUME (BEAKER) (test uxhn=215) 6.1 fL 6.5-10.5 NUCLEATED RED BLOOD CELLS (BEAKER) (test 0 /100 WBC 0-0 qouv=348) NEUTROPHILS RELATIVE PERCENT (BEAKER) (test 58 % xros=641) LYMPHOCYTES RELATIVE PERCENT (BEAKER) (test 21 % lrjt=926) MONOCYTES RELATIVE PERCENT (BEAKER) (test 15 % rsvr=564) EOSINOPHILS RELATIVE PERCENT (BEAKER) (test 4 % pvxz=005) BASOPHILS RELATIVE PERCENT (BEAKER) (test 1 % mzxl=417) NEUTROPHILS ABSOLUTE COUNT (BEAKER) (test 1.73 K/ L 1.80-8.00 dyjm=369) LYMPHOCYTES ABSOLUTE COUNT (BEAKER) (test 0.64 K/ L 1.48-4.50 cide=328) MONOCYTES ABSOLUTE COUNT (BEAKER) (test rbob=810) 0.45 K/ L 0.00-1.30 EOSINOPHILS ABSOLUTE COUNT (BEAKER) (test 0.13 K/ L 0.00-0.50 dwfn=344) BASOPHILS ABSOLUTE COUNT (BEAKER) (test dleg=251) 0.02 K/ L 0.00-0.20 0.00BASIC METABOLIC [id number] 06:24:00 Test Item Value Reference Range Comments SODIUM (BEAKER) (test 134 meq/L 136-145 csss=491) POTASSIUM (BEAKER) (test 3.7 meq/L 3.5-5.1 sdmo=073) CHLORIDE (BEAKER) (test 105 meq/L 98-107 uqce=832) CO2 (BEAKER) (test 21 meq/L 22-29 neph=943) BLOOD UREA NITROGEN 18 mg/dL 7-21 (BEAKER) (test gnoh=030) CREATININE (BEAKER) (test 1.53 mg/dL 0.57-1.25 yekf=510) GLUCOSE RANDOM (BEAKER) 103 mg/dL 70-105 (test xcer=747) CALCIUM (BEAKER) (test 7.6 mg/dL 8.4-10.2 losb=706) EGFR (BEAKER) (test 48 mL/min/1.73 sq m ESTIMATED GFR IS NOT urpk=9548) ACCURATE CREATININE CLEARANCE IN PREDICTING GLOMERULAR FILTRATION RATE. ESTIMATED GFR IS NOT APPLICABLE FOR DIALYSIS PATIENTS. Specimen moderately ictericHEPATIC FUNCTION [id number] 06:19:00 Test Item Value Reference Range Comments TOTAL PROTEIN (BEAKER) (test lwnl=869) 5.6 gm/dL 6.0-8.3 ALBUMIN (BEAKER) (test jnke=4392) 2.4 g/dL 3.5-5.0 BILIRUBIN TOTAL (BEAKER) (test qvzk=651) 4.8 mg/dL 0.2-1.2 BILIRUBIN DIRECT (BEAKER) (test sqpr=841) 2.6 mg/dL 0.1-0.5 ALKALINE PHOSPHATASE (BEAKER) (test qtcg=391) 70 U/L 40-150 AST (SGOT) (BEAKER) (test fqzi=834) 28 U/L 5-34 ALT (SGPT) (BEAKER) (test mrjy=004) 11 U/L 6-55 Specimen moderately ictericPROTHROMBIN TIME/[id number] 06:00:00 Test Item Value Reference Range Comments PROTIME (BEAKER) (test aepm=920) 36.7 seconds 11.7-14.7 INR (BEAKER) (test smdb=887) 3.7 <=5.9 RECOMMENDED COUMADIN/WARFARIN INR THERAPY RANGESSTANDARD DOSE: 2.0 - 3.0 Includes: PROPHYLAXIS forvenous thrombosis, systemic embolization; TREATMENT for venous thrombosis and/or pulmonary embolus.HIGH RISK: Target INR is 2.5-3.5 for patients with mechanical heart valves.BODY FLUID CULTURE + GRAM [id number] 00:51:00 Test Item Value Reference Range Comments CULTURE (BEAKER) (test jqam=5290) No growth GRAM STAIN RESULT (BEAKER) (test 3+ WBCs vboa=0598) GRAM STAIN RESULT (BEAKER) (test No organisms seen eouh=17218) BLOOD [id number] 17:08:00 Test Item Value Reference Range Comments CULTURE (BEAKER) (test wgwy=3284) No growth in 5 days BLOOD [id number] 17:06:00 Test Item Value Reference Range Comments CULTURE (BEAKER) (test iryj=3428) No growth in 5 days CBC W/PLT COUNT & AUTO [id number] 07:05:00 Test Item Value Reference Range Comments WHITE BLOOD CELL COUNT (BEAKER) (test wfar=326) 3.5 K/ L 4.0-10.0 RED BLOOD CELL COUNT (BEAKER) (test yzdb=161) 2.16 M/ L 4.20-5.80 HEMOGLOBIN (BEAKER) (test mwzq=200) 7.8 GM/DL 13.0-16.8 HEMATOCRIT (BEAKER) (test mymn=666) 23.9 % 40.0-50.0 MEAN CORPUSCULAR VOLUME (BEAKER) (test cplw=990) 111.0 fL 82.0-98.0 MEAN CORPUSCULAR HEMOGLOBIN (BEAKER) (test 36.3 pg 27.0-33.0 fkbo=217) MEAN CORPUSCULAR HEMOGLOBIN CONC (BEAKER) (test 32.8 GM/DL 32.0-36.0 uugm=359) RED CELL DISTRIBUTION WIDTH (BEAKER) (test 13.9 % 10.3-14.2 joud=174) PLATELET COUNT (BEAKER) (test ugja=603) 72 K/CU MM 150-430 MEAN PLATELET VOLUME (BEAKER) (test itag=169) 6.4 fL 6.5-10.5 NUCLEATED RED BLOOD CELLS (BEAKER) (test 0 /100 WBC 0-0 ffeu=930) NEUTROPHILS RELATIVE PERCENT (BEAKER) (test 51 % pldl=136) LYMPHOCYTES RELATIVE PERCENT (BEAKER) (test 25 % acyl=463) MONOCYTES RELATIVE PERCENT (BEAKER) (test 18 % rxzq=876) EOSINOPHILS RELATIVE PERCENT (BEAKER) (test 6 % amod=506) BASOPHILS RELATIVE PERCENT (BEAKER) (test 0 % ipvw=642) NEUTROPHILS ABSOLUTE COUNT (BEAKER) (test 1.77 K/ L 1.80-8.00 isis=339) LYMPHOCYTES ABSOLUTE COUNT (BEAKER) (test 0.87 K/ L 1.48-4.50 fuic=012) MONOCYTES ABSOLUTE COUNT (BEAKER) (test qchf=312) 0.62 K/ L 0.00-1.30 EOSINOPHILS ABSOLUTE COUNT (BEAKER) (test 0.22 K/ L 0.00-0.50 ujti=819) BASOPHILS ABSOLUTE COUNT (BEAKER) (test ripe=415) 0.01 K/ L 0.00-0.20 0.00BASIC METABOLIC [id number] 06:54:00 Test Item Value Reference Range Comments SODIUM (BEAKER) (test 137 meq/L 136-145 iums=959) POTASSIUM (BEAKER) (test 3.8 meq/L 3.5-5.1 hagb=660) CHLORIDE (BEAKER) (test 109 meq/L 98-107 sctr=120) CO2 (BEAKER) (test 21 meq/L 22-29 oypa=975) BLOOD UREA NITROGEN 17 mg/dL 7-21 (BEAKER) (test zpkw=347) CREATININE (BEAKER) (test 1.60 mg/dL 0.57-1.25 tynn=299) GLUCOSE RANDOM (BEAKER) 76 mg/dL 70-105 (test vrim=122) CALCIUM (BEAKER) (test 7.5 mg/dL 8.4-10.2 ijwy=437) EGFR (BEAKER) (test 46 mL/min/1.73 sq m ESTIMATED GFR IS NOT iren=7378) ACCURATE CREATININE CLEARANCE IN PREDICTING GLOMERULAR FILTRATION RATE. ESTIMATED GFR IS NOT APPLICABLE FOR DIALYSIS PATIENTS. Specimen moderately ictericHEPATIC FUNCTION [id number] 06:53:00 Test Item Value Reference Range Comments TOTAL PROTEIN (BEAKER) (test abel=030) 5.6 gm/dL 6.0-8.3 ALBUMIN (BEAKER) (test ejfa=5835) 2.4 g/dL 3.5-5.0 BILIRUBIN TOTAL (BEAKER) (test sdhc=654) 4.5 mg/dL 0.2-1.2 BILIRUBIN DIRECT (BEAKER) (test jpig=536) 2.7 mg/dL 0.1-0.5 ALKALINE PHOSPHATASE (BEAKER) (test ossp=783) 74 U/L 40-150 AST (SGOT) (BEAKER) (test sjiy=587) 36 U/L 5-34 ALT (SGPT) (BEAKER) (test qqra=049) 13 U/L 6-55 Specimen moderately ictericB-TYPE NATRIURETIC FACTOR (BNP)[id number] 06:52:00 Test Item Value Reference Range Comments B-TYPE NATRIURETIC PEPTIDE (BEAKER) (test 446 pg/mL 0-100 zofe=356) PROTHROMBIN [id number] 06:36:00 Test Item Value Reference Range Comments PROTIME (BEAKER) (test uhxs=925) 28.7 seconds 11.7-14.7 INR (BEAKER) (test lahx=690) 2.7 <=5.9 RECOMMENDED COUMADIN/WARFARIN INR THERAPY RANGESSTANDARD DOSE: 2.0 - 3.0 Includes: PROPHYLAXIS forvenous thrombosis, systemic embolization; TREATMENT for venous thrombosis and/or pulmonary embolus.HIGH RISK: Target INR is 2.5-3.5 for patients with mechanical heart valves.EOSINOPHIL SMEAR, [id number] 21: 44:00 Test Item Value Reference Range Comments EOSINOPHIL SMEAR, URINE (BEAKER) (test No EOS seen No EOS seen ccdu=2012) CREATININE, RANDOM [id number] 18:02:00 Test Item Value Reference Range Comments CREATININE URINE (BEAKER) (test donw=403) 96.3 mg/dL Reference Range: No NormalsSODIUM, RANDOM [id number] 18:02:00 Test Item Value Reference Range Comments SODIUM URINE (BEAKER) (test zgjj=073) 58 meq/L Reference Range: No NormalsURINALYSIS W/ [id number] 17:33:00 Test Item Value Reference Range Comments COLOR (BEAKER) (test eaoy=567) Yellow CLARITY (BEAKER) (test fmzl=422) Clear SPECIFIC GRAVITY UA (BEAKER) (test skit=855) 1.009 1.001-1.035 PH UA (BEAKER) (test myil=300) 6.0 5.0-8.0 PROTEIN UA (BEAKER) (test uzuu=292) Negative Negative GLUCOSE UA (BEAKER) (test ikya=842) Negative Negative KETONES UA (BEAKER) (test iokj=819) Negative Negative BILIRUBIN UA (BEAKER) (test kmid=285) Negative Negative BLOOD UA (BEAKER) (test sqlz=095) Negative Negative NITRITE UA (BEAKER) (test mppg=672) Negative Negative LEUKOCYTE ESTERASE UA (BEAKER) (test xtwu=526) Negative Negative UROBILINOGEN UA (BEAKER) (test xsbk=328) 4.0 mg/dL 0.2-1.0 RBC UA (BEAKER) (test xnsm=204) < /HPF WBC UA (BEAKER) (test pisy=244) 2 /HPF BACTERIA (BEAKER) (test yazu=238) Rare SOURCE(BEAKER) (test naew=6419) CBC W/PLT COUNT & AUTO [id number] 06:53:00 Test Item Value Reference Range Comments WHITE BLOOD CELL COUNT (BEAKER) (test kztp=014) 3.5 K/ L 4.0-10.0 RED BLOOD CELL COUNT (BEAKER) (test thpj=330) 2.17 M/ L 4.20-5.80 HEMOGLOBIN (BEAKER) (test vnhx=835) 7.9 GM/DL 13.0-16.8 HEMATOCRIT (BEAKER) (test klwj=113) 23.9 % 40.0-50.0 MEAN CORPUSCULAR VOLUME (BEAKER) (test rtnp=583) 110.0 fL 82.0-98.0 MEAN CORPUSCULAR HEMOGLOBIN (BEAKER) (test 36.1 pg 27.0-33.0 kpwy=092) MEAN CORPUSCULAR HEMOGLOBIN CONC (BEAKER) (test 32.9 GM/DL 32.0-36.0 aqpe=040) RED CELL DISTRIBUTION WIDTH (BEAKER) (test 14.0 % 10.3-14.2 yfnh=377) PLATELET COUNT (BEAKER) (test ugia=790) 77 K/CU MM 150-430 MEAN PLATELET VOLUME (BEAKER) (test mntg=263) 6.1 fL 6.5-10.5 NUCLEATED RED BLOOD CELLS (BEAKER) (test 0 /100 WBC 0-0 cvsj=131) NEUTROPHILS RELATIVE PERCENT (BEAKER) (test 56 % bbgx=211) LYMPHOCYTES RELATIVE PERCENT (BEAKER) (test 20 % zfir=721) MONOCYTES RELATIVE PERCENT (BEAKER) (test 18 % pxzc=220) EOSINOPHILS RELATIVE PERCENT (BEAKER) (test 6 % zark=855) BASOPHILS RELATIVE PERCENT (BEAKER) (test 1 % pqfh=800) NEUTROPHILS ABSOLUTE COUNT (BEAKER) (test 1.95 K/ L 1.80-8.00 aygb=588) LYMPHOCYTES ABSOLUTE COUNT (BEAKER) (test 0.69 K/ L 1.48-4.50 pmkw=883) MONOCYTES ABSOLUTE COUNT (BEAKER) (test zlvt=011) 0.62 K/ L 0.00-1.30 EOSINOPHILS ABSOLUTE COUNT (BEAKER) (test 0.20 K/ L 0.00-0.50 abph=564) BASOPHILS ABSOLUTE COUNT (BEAKER) (test hmel=554) 0.03 K/ L 0.00-0.20 0.00BASI METABOLIC [id number] 06:45:00 Test Item Value Reference Range Comments SODIUM (BEAKER) (test 134 meq/L 136-145 dccx=768) POTASSIUM (BEAKER) (test 3.6 meq/L 3.5-5.1 mvlv=665) CHLORIDE (BEAKER) (test 106 meq/L 98-107 jafy=976) CO2 (BEAKER) (test 21 meq/L 22-29 djfo=363) BLOOD UREA NITROGEN 14 mg/dL 7-21 (BEAKER) (test jmsd=928) CREATININE (BEAKER) (test 1.33 mg/dL 0.57-1.25 vfde=891) GLUCOSE RANDOM (BEAKER) 71 mg/dL 70-105 (test reos=012) CALCIUM (BEAKER) (test 7.6 mg/dL 8.4-10.2 hhyc=849) EGFR (BEAKER) (test 57 mL/min/1.73 sq m ESTIMATED GFR IS NOT nfbn=9694) ACCURATE CREATININE CLEARANCE IN PREDICTING GLOMERULAR FILTRATION RATE. ESTIMATED GFR IS NOT APPLICABLE FOR DIALYSIS PATIENTS. Specimen moderately ictericHEPATIC FUNCTION [id number] 06:40:00 Test Item Value Reference Range Comments TOTAL PROTEIN (BEAKER) (test bogo=819) 5.6 gm/dL 6.0-8.3 ALBUMIN (BEAKER) (test utul=8351) 2.1 g/dL 3.5-5.0 BILIRUBIN TOTAL (BEAKER) (test ptab=265) 4.4 mg/dL 0.2-1.2 BILIRUBIN DIRECT (BEAKER) (test ffvy=903) 2.9 mg/dL 0.1-0.5 ALKALINE PHOSPHATASE (BEAKER) (test azzy=067) 86 U/L 40-150 AST (SGOT) (BEAKER) (test onda=001) 45 U/L 5-34 ALT (SGPT) (BEAKER) (test ksob=011) 13 U/L 6-55 Specimen moderately ictericPROTHROMBIN [id number] 06:05:00 Test Item Value Reference Range Comments PROTIME (BEAKER) (test zjhg=446) 29.4 seconds 11.7-14.7 INR (BEAKER) (test uemx=536) 2.8 <=5.9 RECOMMENDED COUMADIN/WARFARIN INR THERAPY RANGESSTANDARD DOSE: 2.0 - 3.0 Includes: PROPHYLAXIS forvenous thrombosis, systemic embolization; TREATMENT for venous thrombosis and/or pulmonary embolus.HIGH RISK: Target INR is 2.5-3.5 for patients with mechanical heart valves.BODY FLUID CELL COUNT WITH [id number] 20:51:00 Test Item Value Reference Range Comments APPEARANCE FLUID (BEAKER) (test ghib=699) Slightly Hazy Clear COLOR FLUID (BEAKER) (test vbcf=348) Yellow Colorless, Straw RBC FLUID (BEAKER) (test yjnh=533) 545 /cu mm <=1 ADJUSTED WBC FLUID (BEAKER) (test vsgf=9312) 104 /cu mm <=5 LINING CELLS (BEAKER) (test fepa=6627) 1 /cu mm <=1 NEUTROPHILS FLUID (BEAKER) (test txvt=8322) 3 % LYMPHS FLUID (BEAKER) (test ofvj=528) 13 % MONO/MACROPHAGE FLUID (BEAKER) (test 84 % sazs=906) EOSINOPHILS FLUID (BEAKER) (test froe=920) 0 % BASO FLUID (BEAKER) (test fipx=139) 0 % CONTAINER BODY FLUID (BEAKER) (test EDTA Tube vfye=7447) POCT-GLUCOSE [id number] 18:48:00 Test Item Value Reference Range Comments POC-GLUCOSE METER (BEAKER) 105 mg/dL 70-[address] [facility] [address] [facility] (test zxui=5029) [facility] [address] BASIC METABOLIC [id number] 05:45:00 Test Item Value Reference Range Comments SODIUM (BEAKER) (test 133 meq/L 136-145 xwoc=760) POTASSIUM (BEAKER) (test 4.3 meq/L 3.5-5.1 Specimen moderately tktu=348) hemolyzed CHLORIDE (BEAKER) (test 107 meq/L 98-107 cubj=555) CO2 (BEAKER) (test 19 meq/L 22-29 doty=278) BLOOD UREA NITROGEN 10 mg/dL 7-21 (BEAKER) (test kbww=452) CREATININE (BEAKER) (test 0.86 mg/dL 0.57-1.25 Specimen moderately satg=630) hemolyzed GLUCOSE RANDOM (BEAKER) 68 mg/dL 70-105 (test vdai=702) CALCIUM (BEAKER) (test 7.5 mg/dL 8.4-10.2 nrme=250) EGFR (BEAKER) (test 94 mL/min/1.73 sq m ESTIMATED GFR IS NOT iyay=9997) ACCURATE CREATININE CLEARANCE IN PREDICTING GLOMERULAR FILTRATION RATE. ESTIMATED GFR IS NOT APPLICABLE FOR DIALYSIS PATIENTS. Specimen slightly ictericHEPATIC FUNCTION [id number] 05:45:00 Test Item Value Reference Range Comments TOTAL PROTEIN (BEAKER) (test 5.9 gm/dL 6.0-8.3 Specimen moderately hemolyzed qsqt=698) ALBUMIN (BEAKER) (test 1.9 g/dL 3.5-5.0 Specimen moderately hemolyzed fcit=2656) BILIRUBIN TOTAL (BEAKER) (test 4.4 mg/dL 0.2-1.2 Specimen moderately hemolyzed qbzy=584) BILIRUBIN DIRECT (BEAKER) 2.6 mg/dL 0.1-0.5 Specimen moderately hemolyzed (test bfhv=730) ALKALINE PHOSPHATASE (BEAKER) 86 U/L 40-150 (test dpjd=067) AST (SGOT) (BEAKER) (test 74 U/L 5-34 Specimen moderately hemolyzed yhnk=054) ALT (SGPT) (BEAKER) (test 17 U/L 6-55 Specimen moderately neaq=532) hemolyzed Specimen slightly ictericCBC W/PLT COUNT & AUTO [id number] 05:21 :00 Test Item Value Reference Range Comments WHITE BLOOD CELL COUNT (BEAKER) (test exxk=176) 3.5 K/ L 4.0-10.0 RED BLOOD CELL COUNT (BEAKER) (test kdnp=502) 2.06 M/ L 4.20-5.80 HEMOGLOBIN (BEAKER) (test oekr=567) 7.9 GM/DL 13.0-16.8 HEMATOCRIT (BEAKER) (test fwqz=910) 22.8 % 40.0-50.0 MEAN CORPUSCULAR VOLUME (BEAKER) (test zwnx=541) 110.0 fL 82.0-98.0 MEAN CORPUSCULAR HEMOGLOBIN (BEAKER) (test 38.2 pg 27.0-33.0 ymzp=670) MEAN CORPUSCULAR HEMOGLOBIN CONC (BEAKER) (test 34.6 GM/DL 32.0-36.0 ehas=205) RED CELL DISTRIBUTION WIDTH (BEAKER) (test 13.5 % 10.3-14.2 wivc=152) PLATELET COUNT (BEAKER) (test dgxp=465) 61 K/CU MM 150-430 MEAN PLATELET VOLUME (BEAKER) (test lcit=483) 6.8 fL 6.5-10.5 NUCLEATED RED BLOOD CELLS (BEAKER) (test 0 /100 WBC 0-0 kvfg=858) NEUTROPHILS RELATIVE PERCENT (BEAKER) (test 51 % nkph=072) LYMPHOCYTES RELATIVE PERCENT (BEAKER) (test 24 % ercw=936) MONOCYTES RELATIVE PERCENT (BEAKER) (test 18 % tfij=788) EOSINOPHILS RELATIVE PERCENT (BEAKER) (test 7 % rflu=707) BASOPHILS RELATIVE PERCENT (BEAKER) (test 1 % oruw=993) NEUTROPHILS ABSOLUTE COUNT (BEAKER) (test 1.76 K/ L 1.80-8.00 cdlh=408) LYMPHOCYTES ABSOLUTE COUNT (BEAKER) (test 0.85 K/ L 1.48-4.50 ngab=925) MONOCYTES ABSOLUTE COUNT (BEAKER) (test ysto=475) 0.61 K/ L 0.00-1.30 EOSINOPHILS ABSOLUTE COUNT (BEAKER) (test 0.23 K/ L 0.00-0.50 slpz=255) BASOPHILS ABSOLUTE COUNT (BEAKER) (test uiur=345) 0.02 K/ L 0.00-0.20 0.00PROTHROMBIN [id number] 05:19:00 Test Item Value Reference Range Comments PROTIME (BEAKER) (test bzsa=215) 28.2 seconds 11.7-14.7 INR (BEAKER) (test kwhq=303) 2.6 <=5.9 RECOMMENDED COUMADIN/WARFARIN INR THERAPY RANGESSTANDARD DOSE: 2.0 - 3.0 Includes: PROPHYLAXIS forvenous thrombosis, systemic embolization; TREATMENT for venous thrombosis and/or pulmonary embolus.HIGH RISK: Target INR is 2.5-3.5 for patients with mechanical heart valves.BODY FLUID CULTURE + GRAM [id number] 14:14:00 Test Item Value Reference Range Comments CULTURE (BEAKER) (test jjxz=0307) No growth GRAM STAIN RESULT (BEAKER) (test 2+ WBCs ztfw=2813) GRAM STAIN RESULT (BEAKER) (test No organisms seen sqmq=98148) CBC W/PLT COUNT & AUTO [id number] 10:28:00 Test Item Value Reference Range Comments WHITE BLOOD CELL COUNT (BEAKER) (test tbjx=462) 3.6 K/ L 4.0-10.0 RED BLOOD CELL COUNT (BEAKER) (test ltil=391) 2.17 M/ L 4.20-5.80 HEMOGLOBIN (BEAKER) (test wcht=454) 7.7 GM/DL 13.0-16.8 HEMATOCRIT (BEAKER) (test ltnn=306) 23.8 % 40.0-50.0 MEAN CORPUSCULAR VOLUME (BEAKER) (test igen=561) 110.0 fL 82.0-98.0 MEAN CORPUSCULAR HEMOGLOBIN (BEAKER) (test 35.3 pg 27.0-33.0 xqlr=517) MEAN CORPUSCULAR HEMOGLOBIN CONC (BEAKER) (test 32.1 GM/DL 32.0-36.0 fhfz=838) RED CELL DISTRIBUTION WIDTH (BEAKER) (test 13.7 % 10.3-14.2 uvtj=673) PLATELET COUNT (BEAKER) (test fnlm=003) 62 K/CU MM 150-430 MEAN PLATELET VOLUME (BEAKER) (test qxds=211) 6.5 fL 6.5-10.5 NUCLEATED RED BLOOD CELLS (BEAKER) (test 0 /100 WBC 0-0 ohjx=317) NEUTROPHILS RELATIVE PERCENT (BEAKER) (test 58 % jcwm=954) LYMPHOCYTES RELATIVE PERCENT (BEAKER) (test 18 % atbz=557) MONOCYTES RELATIVE PERCENT (BEAKER) (test 17 % ydph=411) EOSINOPHILS RELATIVE PERCENT (BEAKER) (test 8 % puog=436) BASOPHILS RELATIVE PERCENT (BEAKER) (test 0 % mqoy=168) NEUTROPHILS ABSOLUTE COUNT (BEAKER) (test 2.10 K/ L 1.80-8.00 effs=286) LYMPHOCYTES ABSOLUTE COUNT (BEAKER) (test 0.63 K/ L 1.48-4.50 hkbn=973) MONOCYTES ABSOLUTE COUNT (BEAKER) (test vvyt=853) 0.59 K/ L 0.00-1.30 EOSINOPHILS ABSOLUTE COUNT (BEAKER) (test 0.28 K/ L 0.00-0.50 trii=458) BASOPHILS ABSOLUTE COUNT (BEAKER) (test gsdo=386) 0.00 K/ L 0.00-0.20 [id number] 10:16:00 Test Item Value Reference Range Comments PROCALCITONIN (BEAKER) (test ssdt=0128) < ng/mL <0.05 SEPSIS RISK (ng/mL)Low: 0.05-0.50Intermediate: 0.51-2.00High: & gt;=2.01HEPATIC FUNCTION [id number] 06:26:00 Test Item Value Reference Range Comments TOTAL PROTEIN (BEAKER) (test nwbo=069) 5.6 gm/dL 6.0-8.3 ALBUMIN (BEAKER) (test dhhu=1493) 1.9 g/dL 3.5-5.0 BILIRUBIN TOTAL (BEAKER) (test elfk=054) 4.7 mg/dL 0.2-1.2 BILIRUBIN DIRECT (BEAKER) (test zctx=560) 2.9 mg/dL 0.1-0.5 ALKALINE PHOSPHATASE (BEAKER) (test yhco=970) 85 U/L 40-150 AST (SGOT) (BEAKER) (test jeuq=079) 53 U/L 5-34 ALT (SGPT) (BEAKER) (test arcv=522) 14 U/L 6-55 Specimen moderately ictericBASIC METABOLIC [id number] 06:26:00 Test Item Value Reference Range Comments SODIUM (BEAKER) (test 134 meq/L 136-145 vbuw=925) POTASSIUM (BEAKER) (test 3.8 meq/L 3.5-5.1 auzn=050) CHLORIDE (BEAKER) (test 107 meq/L 98-107 bmfs=133) CO2 (BEAKER) (test 19 meq/L 22-29 fskt=487) BLOOD UREA NITROGEN 8 mg/dL 7-21 (BEAKER) (test wgff=161) CREATININE (BEAKER) (test 0.73 mg/dL 0.57-1.25 cvir=192) GLUCOSE RANDOM (BEAKER) 73 mg/dL 70-105 (test cvzj=424) CALCIUM (BEAKER) (test 7.2 mg/dL 8.4-10.2 ukmn=621) EGFR (BEAKER) (test 113 mL/min/1.73 sq m ESTIMATED GFR IS NOT tnrs=1192) ACCURATE CREATININE CLEARANCE IN PREDICTING GLOMERULAR FILTRATION RATE. ESTIMATED GFR IS NOT APPLICABLE FOR DIALYSIS PATIENTS. Specimen moderately ictericPROTHROMBIN [id number] 06:05:00 Test Item Value Reference Range Comments PROTIME (BEAKER) (test djgh=383) 30.9 seconds 11.7-14.7 INR (BEAKER) (test acxq=797) 3.0 <=5.9 RECOMMENDED COUMADIN/WARFARIN INR THERAPY RANGESSTANDARD DOSE: 2.0 - 3.0 Includes: PROPHYLAXIS forvenous thrombosis, systemic embolization; TREATMENT for venous thrombosis and/or pulmonary embolus.HIGH RISK: Target INR is 2.5-3.5 for patients with mechanical heart valves.[id number] 05:54:00 Test Item Value Reference Range Comments PREALBUMIN (BEAKER) (test ojgj=783) < mg/dL 14-45 URINE [id number] 12:11:00 Test Item Value Reference Range Comments CULTURE (BEAKER) (test wboo=9252) No growth VANCOMYCIN LEVEL, [id number] 09:26:00 Test Item Value Reference Range Comments VANCOMYCIN TROUGH (BEAKER) (test cznb=340) 15.3 ug/mL 10.0-20.0 HEPATIC FUNCTION [id number] 06:17:00 Test Item Value Reference Range Comments TOTAL PROTEIN (BEAKER) (test pvki=301) 5.6 gm/dL 6.0-8.3 ALBUMIN (BEAKER) (test dvge=8990) 2.0 g/dL 3.5-5.0 BILIRUBIN TOTAL (BEAKER) (test smlz=800) 4.2 mg/dL 0.2-1.2 BILIRUBIN DIRECT (BEAKER) (test yopd=258) 2.7 mg/dL 0.1-0.5 ALKALINE PHOSPHATASE (BEAKER) (test appo=817) 98 U/L 40-150 AST (SGOT) (BEAKER) (test whkf=358) 45 U/L 5-34 ALT (SGPT) (BEAKER) (test ftad=742) 12 U/L 6-55 Specimen slightly ictericBASIC METABOLIC [id number] 06:17:00 Test Item Value Reference Range Comments SODIUM (BEAKER) (test 133 meq/L 136-145 dczw=619) POTASSIUM (BEAKER) (test 3.4 meq/L 3.5-5.1 yiyu=506) CHLORIDE (BEAKER) (test 107 meq/L 98-107 ddor=050) CO2 (BEAKER) (test 22 meq/L 22-29 himq=796) BLOOD UREA NITROGEN 7 mg/dL 7-21 (BEAKER) (test ahol=372) CREATININE (BEAKER) (test 0.73 mg/dL 0.57-1.25 jxtk=907) GLUCOSE RANDOM (BEAKER) 87 mg/dL 70-105 (test yfho=123) CALCIUM (BEAKER) (test 7.2 mg/dL 8.4-10.2 epdh=841) EGFR (BEAKER) (test 113 mL/min/1.73 sq m ESTIMATED GFR IS NOT fzng=5102) ACCURATE CREATININE CLEARANCE IN PREDICTING GLOMERULAR FILTRATION RATE. ESTIMATED GFR IS NOT APPLICABLE FOR DIALYSIS PATIENTS. Specimen slightly ictericPROTHROMBIN [id number] 06:04:00 Test Item Value Reference Range Comments PROTIME (BEAKER) (test ueaj=346) 31.7 seconds 11.7-14.7 INR (BEAKER) (test qjlk=716) 3.0 <=5.9 RECOMMENDED COUMADIN/WARFARIN INR THERAPY RANGESSTANDARD DOSE: 2.0 - 3.0 Includes: PROPHYLAXIS forvenous thrombosis, systemic embolization; TREATMENT for venous thrombosis and/or pulmonary embolus.HIGH RISK: Target INR is 2.5-3.5 for patients with mechanical heart valves.VITAMIN B12 AND [id number] 19:36 :00 Test Item Value Reference Range Comments VITAMIN B12 (BEAKER) (test yhve=117) 1121 pg/mL 213-816 FOLATE (BEAKER) (test eipq=549) 18.3 ng/mL >=7.0 Effective 09/13/2014: Folate Reference Range ChangeNew: >=7.0 Previous: & gt;=5.4VITAMIN B12 AND [id number] 14:57:00 Test Item Value Reference Range Comments VITAMIN B12 (BEAKER) (test tjge=820) 1325 pg/mL 213-816 FOLATE (BEAKER) (test ryzn=814) 8.3 ng/mL >=7.0 Effective 09/13/2014: Folate Reference Range ChangeNew: >=7.0 Previous: & gt;=5.4ANTI-NUCLEAR ANTIBODY (CHERYL)2017-02-03 13:56:00 Test Item Value Reference Range Comments ANTI-NUCLEAR ANTIBODY (CHERYL) (BEAKER) (test Negative Negative fkpz=485) HEPATITIS B CORE ANTIBODY, [id number] 12:27:00 Test Item Value Reference Range Comments HEPATITIS B CORE TOTAL ANTIBODY (BEAKER) (test Nonreactive Nonreactive jjwx=119) CRYPTOCOCCAL [id number] 11:25:00 Test Item Value Reference Range Comments CRYPTOCOCCAL ANTIGEN, SERUM (BEAKER) (test Negative Negative, Interference lohb=3231) HEPATITIS B SURFACE [id number] 11:15:00 Test Item Value Reference Range Comments HEPATITIS B SURFACE ANTIBODY (BEAKER) (test < mIU/mL <8.0 jlte=029) HEPATITIS B SURFACE [id number] 09:53:00 Test Item Value Reference Range Comments HEPATITIS B SURFACE ANTIGEN (2) (BEAKER) (test Nonreactive Nonreactive egpd=4995) HIV-1 ANTIGEN WITH HIV-1/2 [id number] 09:53:00 Test Item Value Reference Range Comments HIV-1 ANTIGEN WITH HIV 1\\T\\2 ANTIBODY (2) Nonreactive Nonreactive (BEAKER) (test vimv=8008) HEPATIC FUNCTION [id number] 07:01:00 Test Item Value Reference Range Comments TOTAL PROTEIN (BEAKER) (test vrnh=410) 5.5 gm/dL 6.0-8.3 ALBUMIN (BEAKER) (test dmjz=0315) 2.0 g/dL 3.5-5.0 BILIRUBIN TOTAL (BEAKER) (test yord=505) 3.8 mg/dL 0.2-1.2 BILIRUBIN DIRECT (BEAKER) (test jyvj=654) 2.5 mg/dL 0.1-0.5 ALKALINE PHOSPHATASE (BEAKER) (test gybg=268) 108 U/L 40-150 AST (SGOT) (BEAKER) (test szsw=778) 40 U/L 5-34 ALT (SGPT) (BEAKER) (test nxzm=963) 10 U/L 6-55 Specimen slightly ictericBASIC METABOLIC [id number] 07:01:00 Test Item Value Reference Range Comments SODIUM (BEAKER) (test 133 meq/L 136-145 qrhq=303) POTASSIUM (BEAKER) (test 3.7 meq/L 3.5-5.1 mdbw=213) CHLORIDE (BEAKER) (test 108 meq/L 98-107 jqeg=008) CO2 (BEAKER) (test 20 meq/L 22-29 hxvu=939) BLOOD UREA NITROGEN 7 mg/dL 7-21 (BEAKER) (test xlhb=713) CREATININE (BEAKER) (test 0.76 mg/dL 0.57-1.25 lfbt=097) GLUCOSE RANDOM (BEAKER) 100 mg/dL 70-105 (test trhv=953) CALCIUM (BEAKER) (test 7.3 mg/dL 8.4-10.2 mwoc=819) EGFR (BEAKER) (test 108 mL/min/1.73 sq m ESTIMATED GFR IS NOT rkmr=5088) ACCURATE CREATININE CLEARANCE IN PREDICTING GLOMERULAR FILTRATION RATE. ESTIMATED GFR IS NOT APPLICABLE FOR DIALYSIS PATIENTS. Specimen slightly ictericC W/PLT COUNT & AUTO [id number] 06:53 :00 Test Item Value Reference Range Comments WHITE BLOOD CELL COUNT (BEAKER) (test aeqw=478) 3.5 K/ L 4.0-10.0 RED BLOOD CELL COUNT (BEAKER) (test xgig=231) 1.83 M/ L 4.20-5.80 HEMOGLOBIN (BEAKER) (test bhft=696) 7.3 GM/DL 13.0-16.8 HEMATOCRIT (BEAKER) (test thdt=591) 19.9 % 40.0-50.0 MEAN CORPUSCULAR VOLUME (BEAKER) (test wjue=100) 109.0 fL 82.0-98.0 MEAN CORPUSCULAR HEMOGLOBIN (BEAKER) (test 39.9 pg 27.0-33.0 nxls=309) MEAN CORPUSCULAR HEMOGLOBIN CONC (BEAKER) (test 36.6 GM/DL 32.0-36.0 yrwk=216) RED CELL DISTRIBUTION WIDTH (BEAKER) (test 14.3 % 10.3-14.2 fdut=610) PLATELET COUNT (BEAKER) (test wade=468) 35 K/CU MM 150-430 MEAN PLATELET VOLUME (BEAKER) (test saty=481) 6.6 fL 6.5-10.5 NUCLEATED RED BLOOD CELLS (BEAKER) (test 0 /100 WBC 0-0 fabp=917) NEUTROPHILS RELATIVE PERCENT (BEAKER) (test 60 % jjgc=477) LYMPHOCYTES RELATIVE PERCENT (BEAKER) (test 18 % fryd=005) MONOCYTES RELATIVE PERCENT (BEAKER) (test 17 % uzms=135) EOSINOPHILS RELATIVE PERCENT (BEAKER) (test 6 % pqas=317) BASOPHILS RELATIVE PERCENT (BEAKER) (test 0 % jblm=517) NEUTROPHILS ABSOLUTE COUNT (BEAKER) (test 2.06 K/ L 1.80-8.00 papu=152) LYMPHOCYTES ABSOLUTE COUNT (BEAKER) (test 0.61 K/ L 1.48-4.50 wxjd=870) MONOCYTES ABSOLUTE COUNT (BEAKER) (test enhk=106) 0.58 K/ L 0.00-1.30 EOSINOPHILS ABSOLUTE COUNT (BEAKER) (test 0.19 K/ L 0.00-0.50 zpkw=589) BASOPHILS ABSOLUTE COUNT (BEAKER) (test uqmh=314) 0.01 K/ L 0.00-0.20 0.00PROTHROMBIN [id number] 06:39:00 Test Item Value Reference Range Comments PROTIME (BEAKER) (test zmnf=566) 30.6 seconds 11.7-14.7 INR (BEAKER) (test roim=762) 2.9 <=5.9 RECOMMENDED COUMADIN/WARFARIN INR THERAPY RANGESSTANDARD DOSE: 2.0 - 3.0 Includes: PROPHYLAXIS forvenous thrombosis, systemic embolization; TREATMENT for venous thrombosis and/or pulmonary embolus.HIGH RISK: Target INR is 2.5-3.5 for patients with mechanical heart valves.URINALYSIS W/ [id number] 16 :58:00 Test Item Value Reference Range Comments COLOR (BEAKER) (test wqid=867) Yellow CLARITY (BEAKER) (test etwj=285) Clear SPECIFIC GRAVITY UA (BEAKER) (test 1.025 1.001-1.035 ynjs=346) PH UA (BEAKER) (test blqg=155) 7.0 5.0-8.0 PROTEIN UA (BEAKER) (test qdws=556) Negative Negative GLUCOSE UA (BEAKER) (test dvml=351) Negative Negative KETONES UA (BEAKER) (test jwpg=889) Negative Negative BILIRUBIN UA (BEAKER) (test ggtc=835) Positive Negative BLOOD UA (BEAKER) (test pies=022) Negative Negative NITRITE UA (BEAKER) (test zift=373) Negative Negative LEUKOCYTE ESTERASE UA (BEAKER) (test Negative Negative ocvu=631) UROBILINOGEN UA (BEAKER) (test lfeu=284) 8.0 mg/dL 0.2-1.0 RBC UA (BEAKER) (test yepq=122) 0 /HPF WBC UA (BEAKER) (test aqtt=059) 2 /HPF MUCUS (BEAKER) (test kyvx=7500) Rare HYALINE CASTS (BEAKER) (test gaew=149) 3 /LPF SOURCE(BEAKER) (test tfhn=3374) Urine, Clean Catch [id number] 13:32:00 Test Item Value Reference Range Comments FERRITIN (BEAKER) (test ghcy=150) 116 ng/mL 5-275 Effective 09/13/2014: Reference Range ChangeNew: Male 5-275 Previous: Male 22-322 Female 5-275 Female 10-291HEPATITIS A ANTIBODY, [id number] 13:19:00 Test Item Value Reference Range Comments HEPATITIS A IGG ANTIBODY (BEAKER) (test dhhk=6834) Reactive Nonreactive ALPHA FETOPROTEIN (AFP), TUMOR [id number] 13:17:00 Test Item Value Reference Range Comments ALPHA-FETOPROTEIN (BEAKER) (test piko=7713) 4.5 ng/mL <10.0 Effective 09/13/2014: Reference Range ChangeNew: <10.0 Previous: 0.0- 8.0HEPATITIS C [id number] 13:17:00 Test Item Value Reference Range Comments HEPATITIS C ANTIBODY (BEAKER) (test tjso=094) Nonreactive Nonreactive BODY FLUID CELL COUNT WITH [id number] 13:03:00 Test Item Value Reference Range Comments APPEARANCE FLUID (BEAKER) (test zjni=773) Cloudy Clear COLOR FLUID (BEAKER) (test oooo=282) Yellow Colorless, Straw RBC FLUID (BEAKER) (test xkkp=125) 1519 /cu mm <=1 ADJUSTED WBC FLUID (BEAKER) (test tsbi=7594) 108 /cu mm <=5 LINING CELLS (BEAKER) (test jrrq=7542) 14 /cu mm <=1 NEUTROPHILS FLUID (BEAKER) (test weir=8429) 11 % LYMPHS FLUID (BEAKER) (test gpvl=699) 30 % MONO/MACROPHAGE FLUID (BEAKER) (test tufe=708) 59 % EOSINOPHILS FLUID (BEAKER) (test lneu=997) 0 % BASO FLUID (BEAKER) (test dpjf=378) 0 % CONTAINER BODY FLUID (BEAKER) (test zjmt=8546) EDTA Tube BASIC METABOLIC [id number] 12:56:00 Test Item Value Reference Range Comments SODIUM (BEAKER) (test 131 meq/L 136-145 jwla=819) POTASSIUM (BEAKER) (test 4.0 meq/L 3.5-5.1 Specimen moderately xspt=350) hemolyzed CHLORIDE (BEAKER) (test 105 meq/L 98-107 xjkc=100) CO2 (BEAKER) (test 18 meq/L 22-29 gzeu=334) BLOOD UREA NITROGEN 6 mg/dL 7-21 (BEAKER) (test vrze=774) CREATININE (BEAKER) (test 0.72 mg/dL 0.57-1.25 Specimen moderately iaed=502) hemolyzed GLUCOSE RANDOM (BEAKER) 103 mg/dL 70-105 (test cqvl=400) CALCIUM (BEAKER) (test 7.4 mg/dL 8.4-10.2 offs=496) EGFR (BEAKER) (test 115 mL/min/1.73 sq m ESTIMATED GFR IS NOT octu=3571) ACCURATE CREATININE CLEARANCE IN PREDICTING GLOMERULAR FILTRATION RATE. ESTIMATED GFR IS NOT APPLICABLE FOR DIALYSIS PATIENTS. Specimen moderately ictericIRON, TIBC, % SAT. (WITHOUT FERRITIN)2017-02-02 12:56 :00 Test Item Value Reference Range Comments IRON (BEAKER) (test btil=027) 55 ug/dL 40-160 TOTAL IRON BINDING CAPACITY (BEAKER) (test 175 ug/dL 250-450 vvjr=590) IRON % SATURATION (2) (BEAKER) (test lpyj=4259) 31 % 20-55 HEPATIC FUNCTION [id number] 12:50:00 Test Item Value Reference Range Comments TOTAL PROTEIN (BEAKER) (test 6.7 gm/dL 6.0-8.3 Specimen moderately hemolyzed tiot=098) ALBUMIN (BEAKER) (test 2.0 g/dL 3.5-5.0 Specimen moderately hemolyzed qzkf=0119) BILIRUBIN TOTAL (BEAKER) (test 5.1 mg/dL 0.2-1.2 Specimen moderately hemolyzed lkpf=353) BILIRUBIN DIRECT (BEAKER) 2.8 mg/dL 0.1-0.5 Specimen moderately hemolyzed (test kkhv=638) ALKALINE PHOSPHATASE (BEAKER) 99 U/L 40-150 (test ywvs=610) AST (SGOT) (BEAKER) (test 62 U/L 5-34 Specimen moderately hemolyzed qbol=252) ALT (SGPT) (BEAKER) (test 15 U/L 6-55 Specimen moderately xjwy=104) hemolyzed Specimen moderately ictericCBC W/PLT COUNT & AUTO [id number] 12: 47:00 Test Item Value Reference Range Comments WHITE BLOOD CELL COUNT (BEAKER) (test njwh=653) 3.3 K/ L 4.0-10.0 RED BLOOD CELL COUNT (BEAKER) (test rjvr=596) 2.08 M/ L 4.20-5.80 HEMOGLOBIN (BEAKER) (test uzcw=338) 7.8 GM/DL 13.0-16.8 HEMATOCRIT (BEAKER) (test syyg=572) 22.9 % 40.0-50.0 MEAN CORPUSCULAR VOLUME (BEAKER) (test hqme=175) 110.0 fL 82.0-98.0 MEAN CORPUSCULAR HEMOGLOBIN (BEAKER) (test 37.4 pg 27.0-33.0 fsfa=705) MEAN CORPUSCULAR HEMOGLOBIN CONC (BEAKER) (test 34.1 GM/DL 32.0-36.0 iyvc=706) RED CELL DISTRIBUTION WIDTH (BEAKER) (test 15.0 % 10.3-14.2 chzd=866) PLATELET COUNT (BEAKER) (test jpcm=502) 48 K/CU MM 150-430 MEAN PLATELET VOLUME (BEAKER) (test uvis=776) 6.6 fL 6.5-10.5 NUCLEATED RED BLOOD CELLS (BEAKER) (test 0 /100 WBC 0-0 ryti=220) NEUTROPHILS RELATIVE PERCENT (BEAKER) (test 62 % kjos=683) LYMPHOCYTES RELATIVE PERCENT (BEAKER) (test 17 % hrrw=409) MONOCYTES RELATIVE PERCENT (BEAKER) (test 15 % zjnw=323) EOSINOPHILS RELATIVE PERCENT (BEAKER) (test 6 % irrh=067) BASOPHILS RELATIVE PERCENT (BEAKER) (test 0 % lrna=865) NEUTROPHILS ABSOLUTE COUNT (BEAKER) (test 2.03 K/ L 1.80-8.00 ropl=148) LYMPHOCYTES ABSOLUTE COUNT (BEAKER) (test 0.57 K/ L 1.48-4.50 nxvc=965) MONOCYTES ABSOLUTE COUNT (BEAKER) (test lbvz=204) 0.48 K/ L 0.00-1.30 EOSINOPHILS ABSOLUTE COUNT (BEAKER) (test 0.19 K/ L 0.00-0.50 hhvm=008) BASOPHILS ABSOLUTE COUNT (BEAKER) (test salg=352) 0.01 K/ L 0.00-0.20 0.00PROTHROMBIN [id number] 12:42:00 Test Item Value Reference Range Comments PROTIME (BEAKER) (test lmpz=353) 27.0 seconds 11.7-14.7 INR (BEAKER) (test xywh=922) 2.5 <=5.9 RECOMMENDED COUMADIN/WARFARIN INR THERAPY RANGESSTANDARD DOSE: 2.0 - 3.0 Includes: PROPHYLAXIS forvenous thrombosis, systemic embolization; TREATMENT for venous thrombosis and/or pulmonary embolus.HIGH RISK: Target INR is 2.5-3.5 for patients with mechanical heart valves.ALBUMIN, BODY [id number] 11:46:00 Test Item Value Reference Range Comments ALBUMIN FLUID (BEAKER) (test eeiy=810) 0.5 gm/dL Reference Range: No Normals Assay performance has not been validated for this type of specimen.PROTEIN, BODY [id number] 11:42:00 Test Item Value Reference Range Comments PROTEIN FLUID (BEAKER) (test zmgt=349) 1.3 g/dL Absence of reference range indicates that normals have not been defined.Assay performance has not been validated for this type of specimen.
--- OUTSIDE RECORDS SUMMARY | 2018-10-08 15:39 | XMS REPORT ---
[...] Dosage System Date Date Ondansetron HCl [facility] 83920997497 4 MG Orally Active 1 tab every 8 hours as needed for Nausea and vomiting Hydrocortisone ND 44208905024 20 MG Orally AM Active 1 tablet Once a day with food or milk Magnesium Oxide ND 85404823908 400 MG Orally Active 1 tablet BID as needed Rifaximin [facility] [place] [address]-80 550 MG Orally Active 1 tablet Twice a day Pantoprazole ND 73863046121 40 MG Orally Active 1 tablet Sodium Once a day Sodium Chloride ND 80012055254 1 GM Orally TID Active 2 tablets Lactulose ND 12023912460 10 GM/15ML Active 15 ml Orally TID Ondansetron HCl [facility] 79459724295 4 MG Active 1 TAB EVERY 8 HOURS NEEDED FOR NAUSEA AND VOMITING ORALLY 10 DAYS Citalopram [facility] 33108108496 40 MG Orally Active take one Hydrobromide once a day daily Hydrocortisone [facility] 43189614579 10 MG Orally PM Active 1 tablet Once a day with food or milk NuFera [facility] [place] 60003053531 - Orally once a Active 1 tab day Citalopram [facility] 18116720637 10 MG Active TAKE ONE Hydrobromide DAILY Ursodiol [facility] 82611080417 300 MG Orally Active not defined Midodrine HCl [facility] 69578525719 10 MG Orally Active 1 tablet Three times a day Results No Known Results Summary Purpose eClinicalWorks Submission
--- OUTSIDE RECORDS SUMMARY | 2018-10-08 15:39 | XMS REPORT ---
[...] Date Date Midodrine HCl [facility] 84678715160 10 MG Orally Active 1 tablet Three times a day Pantoprazole [facility] 14936676374 40 MG Orally Active 1 tablet Sodium Once a day Sodium Chloride ND 85898766344 1 GM Orally TID Active 2 tablets Ondansetron HCl ND 13672869802 4 MG Orally Active 1 tab every 8 hours as needed for Nausea and vomiting Hydrocortisone ND 57041937683 20 MG Orally AM Active 1 tablet Once a day with food or milk Ursodiol ND 41930296310 300 MG Orally Active not defined Lactulose ND 51404904180 10 GM/15ML Active 15 ml Orally TID Citalopram [facility] 79819211825 10 MG Active TAKE ONE Hydrobromide DAILY Rifaximin [facility] [address]-07 550 MG Orally Active 1 tablet Twice a day Ondansetron HCl [facility] 89654788388 4 MG Active 1 TAB EVERY 8 HOURS NEEDED FOR NAUSEA AND VOMITING ORALLY 10 DAYS Magnesium Oxide [facility] 56376188718 400 MG Orally Active 1 tablet BID as needed NuFera [facility] 12184174701 - Orally once a Active 1 tab day Hydrocortisone [facility] 72638266757 10 MG Orally PM Active 1 tablet Once a day with food or milk Results No Known Results Summary Purpose eClinicalWorks Submission
[2018-10-08 16:26] LABS: Protime INR 1.5
[2018-10-08 16:41] LABS: Albumin 2.8 g/dL (3.4-5.0); Bilirubin Direct 1.6 mg/dL (0-0.2); Bilirubin Total 2.8 mg/dL (0.2-1.0); Potassium 5.5 mmol/L (3.5-5.1)
[2018-10-08 16:49] LABS: Absolute Lymphocytes (CBC) 0.4 K/uL (0.7-4.9); Absolute Monocytes 0.6 K/uL (0.1-1.3); Absolute Neutrophil 3.8 K/uL (1.8-8.0); Basophils % 0.2 % (0-1.3); Eosinophils % 0.8 % (0-4.4); Hematocrit 30.6 % (39.6-49.0); Lymphocytes % 9.2 % (15.3-44.8); MCH 32.4 pg (27.0-35.0); MCV 92.6 fL (80-100); MPV 7.1 fL (7.6-11.3)
[2018-10-08 17:16] LABS: Platelet Estimate DECR; Urine White Blood Cell Casts OK
[2018-10-08 17:17] LABS: Poikilocytosis SLIGHT
[2018-10-08 17:22] LABS: Blood Morphology Comment NOTED (NOT SEEN)
[2018-10-08] MEDS ORDERED: LACTULOSE 20 GM/30 ML UCUP ONE (17:40)
--- NOTE | 2018-10-08 17:43 | EDPHYS ---
Physician Documentation [facility] Name: Abhishek Davis Age: 53 yrs Sex: Male : 1965 Arrival Date: 10/08/2018 Time: 15:26 Bed 8 Private MD: ED Physician Santhosh Horne HPI: 10/08 16:00 This 53 yrs old Male presents to ER via EMS with complaints of Altered Mental pm1 Status, Nausea/Vomiting. 16:00 The patient presents with decreased mental status. Onset: The symptoms/episode pm1 began/occurred this morning. Possible causes: Ammonia level. History of liver cirrhosis. Associated signs and symptoms: Pertinent positives: diarrhea, nausea, vomiting, Pertinent negatives: chest pain, palpitations, shortness of breath. Current symptoms: In the emergency department the patient's symptoms have worsened. 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 The patient has experienced similar episodes in the past, multiple times. The patient has been recently seen at the [facility] Emergency Department, today, abdominal pain and diarrhea. Historical: - Allergies: 15:31 No Known Allergies; bp - Home Meds: 15:31 Centrum Oral daily [Active]; citalopram 10 mg tab 1 tab once daily [Active]; Lactulose bp Oral 30 mL 3 times per day [Active]; Lasix 40 mg Oral tab 1 tab once daily [Active]; mag oxide 400 mg daily [Active]; midodrine 5 mg Oral tab twice a day [Active]; ursodiol 300 mg Oral cap 1 cap 2 times per day [Active]; Xifaxan 550 mg Oral tab 1 tab 2 times per day [Active]; - PMHx: 15:31 Anemia; Cirrhosis; renal insufficiency; Umbilical hernia; bp - Immunization history:: Adult Immunizations up to date. - Social history:: Smoking status: unknown. - Ebola Screening: : Patient negative for fever greater than or equal to 101.5 degrees Fahrenheit, and additional compatible Ebola Virus Disease symptoms Patient denies exposure to infectious person Patient denies travel to an Ebola-affected area in the 21 days before illness onset No symptoms or risks identified at this time. ROS: 16:00 Constitutional: Negative for fever, chills, and weight loss, Eyes: Negative for injury, pm1 pain, redness, and discharge, ENT: Negative for injury, pain, and discharge, Neck: Negative for injury, pain, and swelling, Cardiovascular: Negative for chest pain, palpitations, and edema, Respiratory: Negative for shortness of breath, cough, wheezing, and pleuritic chest pain. 16:00 Back: Negative for injury and pain, : Negative for injury, bleeding, discharge, and swelling, MS/Extremity: Negative for injury and deformity, Skin: Negative for injury, rash, and discoloration. 16:00 Abdomen/GI: Positive for abdominal pain, nausea, vomiting, and diarrhea, Negative for constipation. 16:00 Neuro: Positive for altered mental status, Negative for headache. pm1 Exam: 16:00 Constitutional: This is a well developed, well nourished patient who is awake, alert, pm1 and in no acute distress. Head/Face: Normocephalic, atraumatic. Eyes: Pupils equal round and reactive to light, extra-ocular motions intact. Lids and lashes normal. Conjunctiva and sclera are non-icteric and not injected. Cornea within normal limits. Periorbital areas with no swelling, redness, or edema. ENT: Nares patent. No nasal discharge, no septal abnormalities noted. Tympanic membranes are normal and external auditory canals are clear. Oropharynx with no redness, swelling, or masses, exudates, or evidence of obstruction, uvula midline. Mucous membranes moist. Neck: Trachea midline, no thyromegaly or masses palpated, and no cervical lymphadenopathy. Supple, full range of motion without nuchal rigidity, or vertebral point tenderness. No Meningismus. Chest/axilla: Normal chest wall appearance and motion. Nontender with no deformity. No lesions are appreciated. Cardiovascular: Regular rate and rhythm with a normal S1 and S2. No gallops, murmurs, or rubs. Normal PMI, no JVD. No pulse deficits. Respiratory: Lungs have equal breath sounds bilaterally, clear to auscultation and percussion. No rales, rhonchi or wheezes noted. No increased work of breathing, no retractions or nasal flaring. 16:00 Back: No spinal tenderness. No costovertebral tenderness. Full range of motion. Skin: Warm, dry with normal turgor. Normal color with no rashes, no lesions, and no evidence of cellulitis. MS/ Extremity: Pulses equal, no cyanosis. Neurovascular intact. Full, normal range of motion. 16:00 Abdomen/GI: Inspection: distension, that is moderate, Bowel sounds: normal, in all quadrants, Palpation: abdomen is soft and non-tender, Hernia: noted in the ventral area, incarceration, is not appreciated, tenderness, is not appreciated. 16:00 Neuro: Orientation: to person, place, Motor: moves all fours. Vital Signs: 15:31 BP 110 / 88; Pulse 95; Resp 14; Temp 98; Pulse Ox 100% ; Weight 72.57 kg; bp 16:37 BP 103 / 79; Pulse 90; Resp 16; Pulse Ox 100% ; bp 17:38 BP 109 / 86; Pulse 91; Resp 14; Pulse Ox 100% ; bp 18:29 BP 110 / 82; Pulse 98; Resp 16; Pulse Ox 100% ; bp 19:27 BP 107 / 77; Pulse 96; Resp 20; Pulse Ox 99% on R/A; tl2 MDM: 15:38 Patient medically screened. pm1 17:26 Data reviewed: vital signs. Data interpreted: Pulse oximetry: on room air is 100 %. pm1 Interpretation: normal. Counseling: I had a detailed discussion with the patient and/or guardian regarding: the historical points, exam findings, and any diagnostic results supporting the discharge/admit diagnosis, lab results, radiology results, the need to transfer to another facility, [facility] specialist, Family requested transfer to his GI doctor, Dr. Malave. 17:31 Physician consultation: Woody Malave was called at 17:32, was contacted at 17:32, pm1 regarding regarding transfer, patient's condition, would like further tests performed, Blood culture. 17:40 ED course: [facility]. Informed and she is fine with the patient pm1 staying here. 17:59 Physician consultation: Carter Kincaid DO was contacted at 17:59, regarding admission, pm1 patient's condition, and will see patient in ED, shortly. 10/08 15:52 Order name: Basic Metabolic Panel; Complete Time: 16:54 pm1 10/08 15:52 Order name: CBC with Diff; Complete Time: 17:31 pm1 10/08 15:52 Order name: Creatinine for Radiology; Complete Time: 16:54 pm1 10/08 15:52 Order name: Hepatic Function; Complete Time: 16:54 pm1 10/08 15:52 Order name: Lipase; Complete Time: 16:54 pm1 10/08 15:53 Order name: UDS pm1 10/08 15:52 Order name: IV Saline Lock; Complete Time: 15:57 pm1 10/08 15:59 Order name: AMMONIA; Complete Time: 16:54 pm1 10/08 16:00 Order name: PT-INR; Complete Time: 16:54 pm1 10/08 16:58 Order name: CBC Smear Scan; Complete Time: 17:31 EDMS 10/08 17:31 Order name: Blood Culture Adult (2) pm1 10/08 17:59 Order name: EKG Electrocardiogram EDAL 10/08 15:52 Order name: Labs collected and sent; Complete Time: 15:57 pm1 Administered Medications: 17:30 Drug: Lactulose 30 grams Volume: 45 ml; Route: PO; bp 17:37 Follow up: Response: No adverse reaction bp 17:45 Drug: Kayexalate 30 grams Route: PO; bp 18:11 Follow up: Response: No adverse reaction bp Disposition: 10/08/18 17:43 Hospitalization ordered by Carter Kincaid for Observation. Preliminary diagnosis is Hepatic encephalopathy. - Bed requested for Telemetry/MedSurg (observation). - Status is Observation. tl2 - Condition is Stable. - Problem is new. - Symptoms have improved. UTI on Admission? No Addendum: 10/15/2018 07:49 Co-signature as Attending Physician, Santhosh Horne MD I agree with the assessment and k dr plan of care. Signatures: Dispatcher [employer] [facility] Santhosh Horne MD MD kdr Marinas, Patrick, NP PROTECTION ANALYST pm1 Alyson Singleton RN RN tl2 Helga Dumont RN RN df Cash Torre RN RN bp Corrections: (The following items were deleted from the chart) 10/08 18:55 17:43 Hospitalization Ordered by Carter Kincaid DO for Observation. Preliminary df diagnosis is Hepatic encephalopathy. Bed requested for Telemetry/MedSurg (observation). Status is Observation. Condition is Stable. Problem is new. Symptoms have improved. UTI on Admission? No. pm1 20:01 18:55 10/08/2018 17:43 Hospitalization Ordered by Carter Kincaid DO for Observation. tl2 Preliminary diagnosis is Hepatic encephalopathy. Bed requested for Telemetry/MedSurg (observation). Status is Observation. Condition is Stable. Problem is new. Symptoms have improved. UTI on Admission? No. df 10/09 00:42 10/08 16:00 Back: Negative for injury and pain, : Negative for injury, bleeding, pm1 discharge, and swelling, MS/Extremity: Negative for injury and deformity, Skin: Negative for injury, rash, and discoloration, Neuro: Negative for headache, weakness, numbness, tingling, and seizure, pm1
--- NOTE | 2018-10-08 17:43 | ER ---
Nurse's Notes [facility] Name: Abhishek Davis Age: 53 yrs Sex: Male : 1965 Arrival Date: 10/08/2018 Time: 15:26 Bed 8 Private MD: Diagnosis: Hepatic encephalopathy Presentation: 10/08 15:27 Presenting complaint: EMS states: D/C AT 10AM, FAMILY CALLED FOR NAUSEA/VOMITING AND bp EXPECT HIM TO BE TRANSFERRED TO [place] FOR LIVER TRANSPLANT. Transition of care: patient was not received from another setting of care. Onset of symptoms is unknown. Risk Assessment: Do you want to hurt yourself or someone else? Patient reports no desire to harm self or others. Initial Sepsis Screen: Does the patient meet any 2 criteria? Altered Mental Status. No. Patient's initial sepsis screen is negative. Does the patient have a suspected source of infection? No. Patient's initial sepsis screen is negative. Care prior to arrival: Medication(s) given: zofran 4 mg, IV initiated. 22 GA, in the right hand, Glucose check: 59. 15:27 Method Of Arrival: EMS: [facility] bp 15:27 Acuity: KACEY 2 bp Triage Assessment: 15:31 General: Appears distressed, comfortable, unkempt, malnourished, Behavior is calm, bp uncooperative. Pain: Unable to use pain scale. Does not appear to understand pain scale. EENT: No deficits noted. Neuro: Level of Consciousness is awake, confused, Oriented to none. Cardiovascular: No deficits noted. Respiratory: Airway is patent Respiratory effort is even, unlabored, Respiratory pattern is regular, symmetrical. GI: Abdomen is distended, noted to have ascites, Abd is rigid. : No signs and/or symptoms were reported regarding the genitourinary system. Derm: Skin is jaundiced. Musculoskeletal: Circulation, motion, and sensation intact. Range of motion: intact in all extremities. Historical: - Allergies: 15:31 No Known Allergies; bp - Home Meds: 15:31 Centrum Oral daily [Active]; citalopram 10 mg tab 1 tab once daily [Active]; Lactulose bp Oral 30 mL 3 times per day [Active]; Lasix 40 mg Oral tab 1 tab once daily [Active]; mag oxide 400 mg daily [Active]; midodrine 5 mg Oral tab twice a day [Active]; ursodiol 300 mg Oral cap 1 cap 2 times per day [Active]; Xifaxan 550 mg Oral tab 1 tab 2 times per day [Active]; - PMHx: 15:31 Anemia; Cirrhosis; renal insufficiency; Umbilical hernia; bp - Immunization history:: Adult Immunizations up to date. - Social history:: Smoking status: unknown. - Ebola Screening: : Patient negative for fever greater than or equal to 101.5 degrees Fahrenheit, and additional compatible Ebola Virus Disease symptoms Patient denies exposure to infectious person Patient denies travel to an Ebola-affected area in the 21 days before illness onset No symptoms or risks identified at this time. Screenin:35 Abuse screen: Denies threats or abuse. Denies injuries from another. Nutritional bp screening: No deficits noted. Tuberculosis screening: No symptoms or risk factors identified. Fall Risk No fall in past 12 months (0 pts). Secondary diagnosis (15 points) CIRRHOSIS. IV access (20 points). Ambulatory Aid- None/Bed Rest/Nurse Assist (0 pts). Gait- Weak (10 pts.). Mental Status- Overestimates/Forgets Limitations (15 pts.). Total Ty Fall Scale indicates High Risk Score (45 or more points). Fall prevention measures have been instituted. Side Rails Up X 2 Placed Close to Nursing Station Frequent Obs/Assessments Occuring As available patient and family educated on Fall Prevention Program and Strategies. Assessment: 15:38 General: SEE TRIAGE NOTE. bp 16:37 Reassessment: UOP PENDING, VS STABLE. LAB RESULTS PENDING. bp 19:59 Reassessment: Patient appears in no apparent distress at this time. Pt stable and ready tl2 for transport to floor. Vital Signs: 15:31 BP 110 / 88; Pulse 95; Resp 14; Temp 98; Pulse Ox 100% ; Weight 72.57 kg; bp 16:37 BP 103 / 79; Pulse 90; Resp 16; Pulse Ox 100% ; bp 17:38 BP 109 / 86; Pulse 91; Resp 14; Pulse Ox 100% ; bp 18:29 BP 110 / 82; Pulse 98; Resp 16; Pulse Ox 100% ; bp 19:27 BP 107 / 77; Pulse 96; Resp 20; Pulse Ox 99% on R/A; tl2 ED Course: 15:26 Patient arrived in ED. bp 15:29 Triage completed. bp 15:31 Arm band placed on. bp 15:35 Patient has correct armband on for positive identification. Placed in gown. Bed in low bp position. Call light in reach. Side rails up X2. 15:36 [facility] pm1 15:36 Snathosh Horne MD is Attending Physician. pm1 15:38 Cash Torre, RN is Primary Nurse. bp 15:39 EKG done, by surgical scrub technologist. reviewed by Quinten Hyde NP. sm3 17:42 Carter Kincaid DO is Hospitalizing Provider. pm1 19:46 Cleaned of incontinence. tl2 19:59 No provider procedures requiring assistance completed. IV 22g in right hand and 20 g in tl2 L FA placed during previous shift. Patient admitted, IV remains in place. Administered Medications: 17:30 Drug: Lactulose 30 grams Volume: 45 ml; Route: PO; bp 17:37 Follow up: Response: No adverse reaction bp 17:45 Drug: Kayexalate 30 grams Route: PO; bp 18:11 Follow up: Response: No adverse reaction bp Outcome: 17:43 Decision to Hospitalize by Provider. pm1 20:00 Admitted to Med/surg accompanied by jessica family with patient, via stretcher, room 205, tl2 with chart, Report called to NIYA Wong 20:00 Condition: stable 20:00 Discharge instructions given to family, Instructed on the need for admit. 20:01 Patient left the ED. tl2 Signatures: Quinten Hyde NP REGULATORY COMPLIANCE DIRECTOR pm1 Alyson Singleton RN RN tl2 Cash Torre RN RN Katlyn Ordonez 3
[2018-10-08] MEDS ORDERED: SOD POLYSTYREN SUL 15 GM/60 ML UCUP ONE (17:51)
--- NOTE | 2018-10-08 18:30 | P.HP ---
Certification for Inpatient Patient admitted to: Observation With expected LOS: <2 Midnights Patient will require the following post-hospital care: None Practitioner: I am a practitioner with admitting privileges, knowledge of patient current condition, hospital course, and medical plan of care. Services: Services provided to patient in accordance with Admission requirements found in Title 42 Section 412.3 of the Code of Federal Regulations Patient History Date of Service: 10/08/18 Primary Care Provider: Dr. Carlos Payne; GI-Dr. Motley; Hepatology-Dr. Malave Reason for admission: Altered mental status History of Present Illness: 53-year-old male presented to emergency room with altered mental status. Patient also had nausea, vomiting and diarrhea. This was reported by the who was present. Patient with history of alcoholic cirrhosis, chronic renal disease, hypotension on midodrine. Patient is currently on liver transplant list. He frequently gets paracentesis. Patient was seen earlier in the ER this morning for similar complaints. Patient was sent home. Patient returned after noted increasing altered mental status. reports the patient has been hospitalized multiple times for hepatic encephalopathy. In the ER patient evaluated. Ammonia level was at 188. White count 4.9, hemoglobin 10.7. Sodium 127, potassium 5.5, creatinine 1.7 with a GFR 40. Glucose 145. Total bilirubin 2.8, direct bilirubin 1.4. Patient was given lactulose in the emergency room. He was also given Kayexalate. Patient admitted for further treatment. When I saw the patient the ER, he still had some confusion. He was able to follow some commands. at bedside. reports compliance with medication. He no longer drinks alcohol. Allergies No Known Drug Allergies Allergy (Verified 07/06/18 10:35) Unknown Home medications list reviewed: Yes Home Medications: Diphenhydramine [Benadryl*] 25 mg PO Q6H PRN #30 tab 10/09/17 Lactulose 30 ml PO TID #500 ml 11/20/17 Rifaximin [Xifaxan] 550 mg PO BID #60 tablet 11/20/17 Midodrine HCl 10 mg PO TID 02/14/18 Multivitamin/Iron/Folic Acid [Centrum Adults Tablet] 1 tab PO DAILY 02/14/18 Ondansetron HCl [Zofran] 4 mg PO Q8HP PRN 02/14/18 Ursodiol 2 cap PO TID 02/14/18 Lidocaine 5% Patch [Lidoderm 5% Patch*] 1 patch TOP DAILY #30 patch 09/23/18 Pantoprazole [Protonix Tab*] 40 mg PO DAILY #30 tab 09/23/18 traMADol HCL [Ultram*] 50 mg PO Q6H PRN #30 tab 09/23/18 Hydroxyzine HCl [Atarax] 10 mg BID PRN 10/02/18 Citalopram [Celexa*] 20 mg DAILY 10/03/18 Docusate [Colace Cap*] 100 mg PO BID cap 10/05/18 Ensure High Protein 240 ml PO BID can 10/05/18 - Past Medical/Surgical History Diabetic: No -: Chronic kidney disease, stage II -: Chronic alcoholic liver cirrhosis -: Ascites with multiple paracentesis in the past -: Chronic hyponatremia -: Anemia of chronic disease -: GERD -: left wrist sx to remove cyst -: hernia repair -: sx on left lower leg Psychosocial/ Personal History: Patient is - Family History Mother -: GI disease, Liver disease Notes: mother because of cirrhosis Father -: Diabetes - Social History Smoking Status: Unknown if ever smoked Alcohol use: No CD- Drugs: No Caffeine use: Yes Place of Residence: Home Review of Systems General: Weakness, Malaise, As per HPI Eyes: Unremarkable ENT: Unremarkable Respiratory: Unremarkable Cardiovascular: Unremarkable Gastrointestinal: Nausea, Vomiting, Diarrhea, As per HPI Genitourinary: Unremarkable Musculoskeletal: Unremarkable Integumentary: Unremarkable Neurological: Confusion, As per HPI Lymphatics: Unremarkable Physical Examination - Physical Exam General: Alert, Confused, Other (Patient follow some commands) HEENT: Atraumatic, Other (Mouth appears dry ), Scleral icterus Neck: Supple, No Thyromegaly Respiratory: Clear to auscultation bilaterally Cardiovascular: Normal pulses, Regular rate/rhythm Gastrointestinal: Normal bowel sounds, Soft and benign, No tenderness, No masses , No rebound, No guarding, Ascites Musculoskeletal: No erythema, No tenderness, No warmth Integumentary: No erythema, No warmth, No cyanosis, Other (Patient jaundiced) Neurological: Other (Confusion noted) - Studies Laboratory Data (last 24 hrs) 10/08/18 16:10: PT 17.8 H, INR 1.50 10/08/18 16:10: Creatinine 1.70 H 10/08/18 16:10: WBC 4.9, Hgb 10.7 L, Hct 30.6 L, Plt Count 87 L 10/08/18 16:10: Sodium 127 L, Potassium 5.5 H, BUN 51 H, Creatinine 1.80 H, Glucose 145 H, Total Bilirubin 2.8 H, AST 25, ALT 16, Alkaline Phosphatase 255 H , Lipase 154 Assessment and Plan - Plan Impression: Hepatic encephalopathy with history of chronic alcoholic cirrhosis on liver transplant list Nausea, vomiting and diarrhea Ascites Chronic kidney disease stage 2 Chronic hyponatremia Hypotension on midodrine GERD Anemia of chronic disease Hyperkalemia Plan: Hepatic encephalopathy with history of chronic alcoholic cirrhosis on liver transplant list: Patient will be admitted. ER tried to transfer patient to his coagulant dipper in [place]. Unfortunately there were no beds available. Therefore patient will be hospitalized here. Will continue with lactulose 4 times a day, Xifaxan twice daily. Will monitor him closely. Fall and aspiration precautions in place. Will monitor ammonia and electrolytes closely. Will continue to reassess. Code status address with . unsure. understands that his condition is getting worse over time. She also understands that the patient's condition is terminal. Will continue to reassess. Patient usually responds quickly to medication. Will reassess tomorrow for possible discharge if not within 48 hr. Nausea, vomiting and diarrhea: Will provide medication as needed. Diarrhea likely related to lactulose. Will monitor closely. Ascites: Patient gets frequent paracentesis. Will order abdominal ultrasound guided radiology assisted paracentesis for tomorrow. Will provide IV albumin after paracentesis. Chronic kidney disease stage 2: Will continue monitor closely. Chronic hyponatremia: Likely from hypovolemia. Will continue to monitor patient closely. Hypotension on midodrine: Will continue with his medication. GERD: Will provide PPI. Anemia of chronic disease: Will monitor closely Hyperkalemia: Patient given Kayexalate in the emergency room. Will monitor and recheck potassium. Discharge Plan: Home Plan to discharge in: 48 Hours - Advance Directives Does patient have a Living Will: No Does patient have a Durable POA for Healthcare: No - Code Status/Comfort Care Code Status Assessed: Yes ( unsure about code status) Time Spent Managing Pts Care (In Minutes): 55
[2018-10-08] MEDS ORDERED: ONDANSETRON 4 MG/2 ML VIAL IV PRN (19:46)
[2018-10-08] MEDS ORDERED: SODIUM CHLORIDE 0.9% 10ML INJ IV PRN (19:46)
[2018-10-08] MEDS ORDERED: ACETAMINOPHEN 500 MG TAB PO PRN (19:46)
[2018-10-08] MEDS ORDERED: hydrOXYzine HCl 25 MG TAB PO PRN (19:46)
[2018-10-08] MEDS: MIDODRINE HCL 5 MG TABLET PO SCH (21:00)
[2018-10-08] MEDS: Rifaximin 550 MG Tab PO SCH (21:00)
[2018-10-08] MEDS: LACTULOSE 20 GM/30 ML UCUP PO SCH (23:06)
[2018-10-09 06:16] LABS: Urine Appearance CLEAR; Urine Bilirubin NEGATIVE (NEG); Urine Blood NEGATIVE (NEG); Urine Color DK YELLOW; Urine Glucose NEGATIVE (NEG); Urine Protein NEGATIVE (NEG)
[2018-10-09 06:25] LABS: Barbiturates NEGATIVE (NEGATIVE); Benzodiazepines NEGATIVE (NEGATIVE); Cocaine NEGATIVE (NEGATIVE); METHAMPHETAM NEGATIVE (NEGATIVE); Methadone NEGATIVE (NEGATIVE); Opiates NEGATIVE (NEGATIVE); Phencyclidine NEGATIVE (NEGATIVE); THC Cannibis POSITIVE (NEGATIVE)
[2018-10-09 06:27] LABS: Urine Microscopic Reflex ORDER UMIC
[2018-10-09 06:50] LABS: Urine Bacteria >50 /HPF (NONE SEEN); Urine Culture Reflex Order NOT NEEDED; Urine RBC <5 /HPF (NONE SEEN)
[2018-10-09 07:58] LABS: Absolute Lymphocytes (CBC) 0.7 K/uL (0.7-4.9); Absolute Monocytes 0.7 K/uL (0.1-1.3); Absolute Neutrophil 3.8 K/uL (1.8-8.0); Basophils % 0.4 % (0-1.3); Eosinophils % 2.2 % (0-4.4); Hematocrit 29.5 % (39.6-49.0); Lymphocytes % 13.3 % (15.3-44.8); MCH 31.8 pg (27.0-35.0); MCV 92.2 fL (80-100); MPV 7.1 fL (7.6-11.3); Monocytes % 13.5 % (3.3-12.3)
[2018-10-09] MEDS: URSODIOL 300 MG CAP PO SCH ×2 (08:00→17:37)
[2018-10-09] MEDS ORDERED: INFLUENZA VACCINE (for 3y+) 0.5 ML DOSE IMVAC ONE (08:00)
[2018-10-09 08:20] LABS: Albumin 2.7 g/dL (3.4-5.0); Bilirubin Total 3.4 mg/dL (0.2-1.0); Magnesium 3.1 mg/dL (1.8-2.4); Potassium 4.9 mmol/L (3.5-5.1); Protein, Total 5.6 g/dL (6.4-8.2)
[2018-10-09] MEDS: Rifaximin 550 MG Tab PO SCH ×2 (09:00→20:30)
[2018-10-09] MEDS: LACTULOSE 20 GM/30 ML UCUP PO SCH ×4 (09:00→20:29)
[2018-10-09] MEDS: CITALOPRAM 10 MG TABLET PO SCH (09:00)
[2018-10-09] MEDS: MIDODRINE HCL 5 MG TABLET PO SCH ×2 (09:00→20:29)
--- NOTE | 2018-10-09 09:25 | EKG ---
Test Date: 2018-10-08 Test Time: 15:35:53 House Repairer: GERMAIN MEASUREMENT RESULTS: Intervals: Rate: 95 GA: 174 QRSD: 90 QT: 356 QTc: 447 [place]: P: 26 GA: 174 QRS: -11 T: -15 INTERPRETIVE STATEMENTS: Normal sinus rhythm Minimal voltage criteria for LVH, may be normal variant Cannot rule out Anterior infarct, age undetermined Abnormal ECG Compared to ECG 10/02/2018 15:35:46 Left ventricular hypertrophy now present Myocardial infarct finding now present Electronically Signed On 10-09-18 09:24:43 PATENT PARALEGAL by Ghanshyam Young
[2018-10-09] MEDS ORDERED: ALBUMIN HUMAN 25% 200 ML IV ONE (10:31)
--- NOTE | 2018-10-09 10:32 | RAD REPORT ---
EXAM DESCRIPTION: US - Paracentesis Proc Guidance - 10/09/2018 9:30 am CLINICAL HISTORY: Recurring ascites, liver failure COMPARISON: Multiple prior paracentesis procedures. TECHNIQUE: The patient presents for ultrasound-guided paracentesis. The procedure, risks and altern atives were discussed with the patient in detail. Oral and written consent were obtained. Time out p rocedure was performed. The patient had no contraindicated allergy or medication history. PT, INR va lues within acceptable limits. Preliminary sonographic evaluation identified left lower quadrant access site. The skin and deeper t issues were anesthetized with 1 percent lidocaine. Under direct sonographic visualization, a paracen tesis catheter was advanced into the peritoneal cavity. Large volume drainage was initiated. Approxi mately 6 liters of ascites removed. At the conclusion of the procedure, catheter was withdrawn and a bandage placed at the puncture site. Patient was transferred back to the floor for continued care and albumin infusion. IMPRESSION: Ultrasound-guided paracentesis as detailed.
[2018-10-09] MEDS: PANTOPRAZOLE 40 MG INJ IVP SCH (11:50)
--- NOTE | 2018-10-09 14:34 | P.PN ---
Subjective Date of Service: 10/09/18 Primary Care Provider: Dr. Carlos Payne; GI-Dr. Motley; Hepatology-Dr. Malave Chief Complaint: Altered mental status Subjective: Improving (Patient more alert today.) Physical Examination - Vital Signs Temperature: 98.5 F Blood Pressure: 109/75 Pulse: 96 Respirations: 20 Pulse Ox (%): 99 - Physical Exam General: Alert, In no apparent distress, Oriented x3, Cooperative HEENT: Atraumatic Neck: Supple Respiratory: Clear to auscultation bilaterally, Normal air movement Cardiovascular: Normal pulses, Regular rate/rhythm Gastrointestinal: Normal bowel sounds, Soft and benign, Non-distended, No masses , No rebound, No guarding, Ascites Musculoskeletal: No erythema, No tenderness, No warmth Integumentary: No tenderness/swelling, No erythema, No warmth, No cyanosis Neurological: Normal speech, Normal strength at 5/5 x4 extr, Normal tone, Other (Muscle wasting to the upper and lower extremities including torso.) - Studies Laboratory Data (last 24 hrs) 10/08/18 16:10: PT 17.8 H, INR 1.50 10/08/18 16:10: Creatinine 1.70 H 10/08/18 16:10: WBC 4.9, Hgb 10.7 L, Hct 30.6 L, Plt Count 87 L 10/08/18 16:10: Sodium 127 L, Potassium 5.5 H, BUN 51 H, Creatinine 1.80 H, Glucose 145 H, Total Bilirubin 2.8 H, AST 25, ALT 16, Alkaline Phosphatase 255 H , Lipase 154 Medications List Reviewed: Yes Assessment & Plan Discharge Plan: Home Plan to discharge in: 24 Hours Physician Review Additional Text: Impression: Hepatic encephalopathy with history of chronic alcoholic cirrhosis on liver transplant list Nausea, vomiting and diarrhea Ascites Chronic kidney disease stage 2 Chronic hyponatremia Hypotension on midodrine GERD Anemia of chronic disease Hyperkalemia Plan: Hepatic encephalopathy with history of chronic alcoholic cirrhosis on liver transplant list: Patient has improved. Will continue with lactulose 4 times a day, Xifaxan twice daily. Will continue to monitor ammonia level. Patient to have therapeutic paracentesis today. Will have physical therapy assess ambulation. Will talk to social science professor to help with home needs. Will also have social science professor address with patient and about advanced directives anticipate discharge likely tomorrow. Nausea, vomiting and diarrhea: Will provide medication as needed. This has improved. Will continue to monitor closely. Will advance diet. Diarrhea likely related to lactulose. Will monitor closely. Ascites: Patient to get therapeutic paracentesis today. Will provide IV albumin afterwards. Chronic kidney disease stage 2: Will continue monitor closely. Chronic hyponatremia: Likely from hypovolemia. This has improved. Will continue monitor closely. Hypotension on midodrine: Will continue with his medication. GERD: Will provide PPI. Anemia of chronic disease: Will monitor closely. Continue with multi vitamin. Hyperkalemia: Patient given Kayexalate in the emergency room. Will monitor and recheck potassium. Time Spent Managing Pts Care (In Minutes): 55
[2018-10-09] MEDS: ENSURE HIGH PROTEIN 237 ML CAN PO SCH (20:30)
[2018-10-10 05:43] LABS: Absolute Lymphocytes (CBC) 0.6 K/uL (0.7-4.9); Absolute Monocytes 0.8 K/uL (0.1-1.3); Absolute Neutrophil 4.2 K/uL (1.8-8.0); Basophils % 0.5 % (0-1.3); Eosinophils % 1.7 % (0-4.4); Hematocrit 29.2 % (39.6-49.0); Lymphocytes % 10.8 % (15.3-44.8); MCH 31.7 pg (27.0-35.0); MCV 92.4 fL (80-100); MPV 6.9 fL (7.6-11.3); Monocytes % 14.1 % (3.3-12.3); RBC Red Blood Cell Count 3.16 M/uL (4.33-5.43)
[2018-10-10 06:02] LABS: Albumin 2.7 g/dL (3.4-5.0); Bilirubin Total 2.7 mg/dL (0.2-1.0); Magnesium 2.9 mg/dL (1.8-2.4); Potassium 5.1 mmol/L (3.5-5.1); Protein, Total 5.6 g/dL (6.4-8.2)
[2018-10-10] MEDS: CITALOPRAM 10 MG TABLET PO SCH (08:46)
[2018-10-10] MEDS: MIDODRINE HCL 5 MG TABLET PO SCH (08:47)
[2018-10-10] MEDS: URSODIOL 300 MG CAP PO SCH ×2 (08:47→16:54)
[2018-10-10] MEDS: LACTULOSE 20 GM/30 ML UCUP PO SCH ×3 (08:47→16:52)
[2018-10-10] MEDS: PANTOPRAZOLE 40 MG INJ IVP SCH (08:47)
[2018-10-10] MEDS: ENSURE HIGH PROTEIN 237 ML CAN PO SCH (08:48)
[2018-10-10] MEDS: Rifaximin 550 MG Tab PO SCH (09:00)
[2018-10-10] MEDS ORDERED: MULTIVITAMIN TAB PO SCH (09:00)
--- NOTE | 2018-10-10 09:44 | P.DS ---
Admission Date: 10/08/18 Discharge Date: 10/10/18 Primary Care Provider: Dr. Carlos Payne; GI-Dr. Motley; Hepatology-Dr. Malave Disposition: ROUTINE DISCHARGE Discharge Condition: GOOD Reason for Admission: Altered mental status Consultations: None Procedures: Paracentesis: COMPARISON: Multiple prior paracentesis procedures. TECHNIQUE: The patient presents for ultrasound-guided paracentesis. The procedure, risks and alternatives were discussed with the patient in detail. Oral and written consent were obtained. Time out procedure was performed. The patient had no contraindicated allergy or medication history. PT, INR values within acceptable limits. Preliminary sonographic evaluation identified left lower quadrant access site. The skin and deeper tissues were anesthetized with 1 percent lidocaine. Under direct sonographic visualization, a paracentesis catheter was advanced into the peritoneal cavity. Large volume drainage was initiated. Approximately 6 liters of ascites removed. At the conclusion of the procedure, catheter was withdrawn and a bandage placed at the puncture site. Patient was transferred back to the floor for continued care and albumin infusion. IMPRESSION: Ultrasound-guided paracentesis as detailed. Medical Problem List: Hepatic encephalopathy with history of chronic alcoholic cirrhosis on liver transplant list Nausea, vomiting and diarrhea Ascites Chronic kidney disease stage 2 Chronic hyponatremia Hypotension on midodrine GERD Anemia of chronic disease Hyperkalemia Moderate malnutrition Brief History of Present Illness: 53-year-old male presented to emergency room with altered mental status. Patient also had nausea, vomiting and diarrhea. This was reported by the who was present. Patient with history of alcoholic cirrhosis, chronic renal disease, hypotension on midodrine. Patient is currently on liver transplant list. He frequently gets paracentesis. Patient was seen earlier in the ER this morning for similar complaints. Patient was sent home. Patient returned after noted increasing altered mental status. reports the patient has been hospitalized multiple times for hepatic encephalopathy. In the ER patient evaluated. Ammonia level was at 188. White count 4.9, hemoglobin 10.7. Sodium 127, potassium 5.5, creatinine 1.7 with a GFR 40. Glucose 145. Total bilirubin 2.8, direct bilirubin 1.4. Patient was given lactulose in the emergency room. He was also given Kayexalate. Patient admitted for further treatment. When I saw the patient the ER, he still had some confusion. He was able to follow some commands. at bedside. reports compliance with medication. He no longer drinks alcohol. Hospital Course: Patient presented with hepatic encephalopathy. Patient with history of chronic alcoholic cirrhosis on liver transplant. Ammonia level was elevated. Patient was started on medication. During the course of his stay his condition improved. Patient also received therapeutic paracentesis. Patient has been getting frequent therapeutic paracentesis over the past several months. At discharge patient currently stable this time. No altered mental status is noted. At discharge he will continue with lactulose 3 times a day and Xifaxan 550 mg one pill twice daily. If required lactulose can be increased to 4 times a day to maintain adequate bowel movements. At discharge she will also continue with Ursodial 300 mg twice daily. At discharge he will continue with fall precautions. Patient is to maintain frequent bowel movements to prevent hepatic encephalopathy. Patient will need a follow up with his merchandise support associate in [place]. Patient currently on transfer list. Compliance with medication addressed in detail. Outpatient therapeutic paracentesis to be continued and arranged by hepatology or his PCP. Advanced directives address in detail. and patient understand that his condition is terminal. Education on the hospice was addressed. I will recommend that this be further addressed as an outpatient by his PCP and merchandise support associate. Compliance with medication is to be monitored. Patient has chronic kidney disease stage 2 with chronic hyponatremia. This will be continued to be monitored as an outpatient. Recommendation is for the patient follow up with nephrology as an outpatient to further monitor. Recommendation to recheck lab-BMP in 1 week. Patient has hypotension on midodrine. Patient will continue with his medication midodrine 10 mg 1 pill twice daily. Patient has GERD. Patient will continue with Protonix 40 mg 1 pill once daily. Patient with anemia of chronic disease. Patient will continue with multi vitamin daily. Patient with depression. Patient will continue with Celexa 40 mg daily. Patient with moderate malnutrition. Patient will continue with Ensure 1 can twice daily. Vital Signs/Physical Exam: Temp Pulse Resp BP Pulse Ox 97.9 F 98 H 20 105/70 96 10/10/18 04:00 10/10/18 04:00 10/10/18 04:00 10/10/18 04:00 10/10/18 04:00 General: Alert, In no apparent distress, Oriented x3, Cooperative, Cachectic HEENT: Atraumatic Neck: Supple Respiratory: Clear to auscultation bilaterally, Normal air movement Cardiovascular: Normal pulses, Regular rate/rhythm Gastrointestinal: Normal bowel sounds, Soft and benign, Non-distended, No masses , No rebound, No guarding, Ascites (Abdominal ascites significantly improved) Musculoskeletal: No erythema, No tenderness, No warmth Integumentary: No erythema, No warmth, No cyanosis Neurological: Normal speech, Normal strength at 5/5 x4 extr, Normal tone, Normal affect, Other (Muscle wasting to the upper and lower extremities including torso.) Laboratory Data at Discharge: WBC 5.7 K/uL (4.3-10.9) 10/10/18 05:30 Hgb 10.0 g/dL (13.6-17.9) L 10/10/18 05:30 Hct 29.2 % (39.6-49.0) L 10/10/18 05:30 Plt Count 87 K/uL (152-406) L 10/10/18 05:30 PT 17.8 SECONDS (9.5-12.5) H 10/08/18 16:10 INR 1.50 10/08/18 16:10 Sodium 129 mmol/L (136-145) L 10/10/18 05:30 Potassium 5.1 mmol/L (3.5-5.1) 10/10/18 05:30 BUN 51 mg/dL (7-18) H 10/10/18 05:30 Creatinine 1.90 mg/dL (0.55-1.3) H 10/10/18 05:30 Glucose 127 mg/dL (74-106) H 10/10/18 05:30 Magnesium 2.9 mg/dL (1.8-2.4) H 10/10/18 05:30 Total Bilirubin 2.7 mg/dL (0.2-1.0) H 10/10/18 05:30 AST 23 U/L (15-37) 10/10/18 05:30 ALT 16 U/L (12-78) 10/10/18 05:30 Alkaline Phosphatase 243 U/L (45-117) H 10/10/18 05:30 Lipase 154 U/L (73-393) 10/08/18 16:10 Home Medications: Citalopram [Celexa*] 40 mg PO DAILY 10/09/18 Lactulose [Cephulac*] 30 mg PO TID 10/09/18 Midodrine HCl 1 tab PO BID 10/09/18 Multivit,Ther Iron,Ca,FA & Min [Centrum Tablet*] 1 tab PO DAILY 10/09/18 Rifaximin [Xifaxan] 1 tab PO BID 10/09/18 Ursodiol 1 cap PO BID 10/09/18 Ensure High Protein 237 ml PO BID #60 can 10/10/18 Pantoprazole [Protonix Tab] 40 mg PO DAILY #30 tab 10/10/18 New Medications: Ensure High Protein 237 ml PO BID #60 can Pantoprazole [Protonix Tab] 40 mg PO DAILY #30 tab Patient Discharge Instructions: 1. Patient will need to follow up with his PCP in 1 week to follow up this hospitalization. 2. Patient presented with hepatic encephalopathy. Patient with history of chronic alcoholic cirrhosis on liver transplant. Ammonia level was elevated. Patient was started on medication. During the course of his stay his condition improved. Patient also received therapeutic paracentesis. Patient has been getting frequent therapeutic paracentesis over the past several months. At discharge patient currently stable this time. No altered mental status is noted. At discharge he will continue with lactulose 3 times a day and Xifaxan 550 mg one pill twice daily. If required lactulose can be increased to 4 times a day to maintain adequate bowel movements. At discharge she will also continue with Ursodial 300 mg twice daily. At discharge he will continue with fall precautions. Patient is to maintain frequent bowel movements to prevent hepatic encephalopathy. Patient will need a follow up with his merchandise support associate in [place]. Patient currently on transfer list. Compliance with medication addressed in detail. Outpatient therapeutic paracentesis to be continued and arranged by hepatology or his PCP. Advanced directives address in detail. and patient understand that his condition is terminal. Education on the hospice was addressed. I will recommend that this be further addressed as an outpatient by his PCP and merchandise support associate. Compliance with his medication is to be monitored. 3. Patient has chronic kidney disease stage 2 with chronic hyponatremia. This will be continued to be monitored as an outpatient. Recommendation is for the patient follow up with nephrology as an outpatient to further monitor. Recommendation to recheck lab-BMP in 1 week. 4. Patient has hypotension on midodrine. Patient will continue with his medication midodrine 10 mg 1 pill twice daily. 5. Patient has GERD. Patient will continue with Protonix 40 mg 1 pill once daily. 6. Patient with anemia of chronic disease. Patient will continue with multi vitamin daily. 7. Patient with depression. Patient will continue with Celexa 40 mg daily. 8. Patient with moderate malnutrition. Patient will continue with Ensure 1 can twice daily. Diet: GI soft diet Activity: Fall precautions Time spent managing pt's care (in minutes): 55
[2018-10-10 13:03] VITALS: O2SAT 96
[2018-10-10 17:52] VITALS: BP 109/75; TEMP 99
== END 2018-10-10 20:15 | disposition home health service (06) ==
LOC: ER 15:23 → ERHOLD 18:12 → 2ND 19:42
PROVIDERS: ADMIT Family Medicine; ATTEND Family Medicine
PROC: 0W9G3ZX Drainage of Peritoneal Cavity, Percutaneous Approach, Diagnostic (ICD-10-PCS; principal; 2018-10-09)
PROC: BW40ZZZ Ultrasonography of Abdomen (ICD-10-PCS; 2018-10-09)
DX: K70.40 Alcoholic hepatic failure without coma (principal); K70.31 Alcoholic cirrhosis of liver with ascites; R11.2 Nausea with vomiting, unspecified; R19.7 Diarrhea, unspecified; N18.2 Chronic kidney disease, stage 2 (mild); E87.1 Hypo-osmolality and hyponatremia; I95.9 Hypotension, unspecified; K21.9 Gastro-esophageal reflux disease without esophagitis; D63.1 Anemia in chronic kidney disease; E87.5 Hyperkalemia; E46 Unspecified protein-calorie malnutrition; Z68.20 Body mass index [BMI] 20.0-20.9, adult; F32.9 Major depressive disorder, single episode, unspecified
CPT/HCPCS: 36415; 49083; 80048; 80053; 80076; 80307; 81003; 81015; 82140; 83690; 83735; 85025; 85610; 87040; 87086; 87088; 92610; 93005; 97163; 99285; C9113; G0378; P9047

== ENCOUNTER 2018-10-23 11:08 | Day surgery (SDC) | payer MEDICAID ==
--- OUTSIDE RECORDS SUMMARY | 2018-10-23 11:23 | XMS REPORT ---
:1965 [facility] [place] [address] [place] [address] Care Team Providers Name Role Phone INGRID [...] Value Reference Range Comments CULTURE (BEAKER) (test lctb=7014) No growth GRAM STAIN RESULT (BEAKER) (test oviq=1749) No WBCs GRAM STAIN RESULT (BEAKER) (test itlr=86800) No organisms seen POCT-GLUCOSE [id number] 07:52:00 Test Item Value Reference Range Comments POC-GLUCOSE METER (BEAKER) 115 mg/dL 70-110 TESTED AT [facility] [address] [place] [address] (test aezk=9500) [facility] [address] [id number] 05:18:00 Test Item Value Reference Range Comments MAGNESIUM (BEAKER) (test amhy=867) 1.9 mg/dL 1.6-2.6 COMPREHENSIVE METABOLIC [id number] 05:18:00 Test Item Value Reference Range Comments TOTAL PROTEIN (BEAKER) 5.2 gm/dL 6.0-8.3 (test kdmc=159) ALBUMIN (BEAKER) (test 3.4 g/dL 3.5-5.0 slpw=8849) ALKALINE PHOSPHATASE 113 U/L 40-150 (BEAKER) (test pakw=760) BILIRUBIN TOTAL (BEAKER) 2.9 mg/dL 0.2-1.2 (test xucv=126) SODIUM (BEAKER) (test 131 meq/L 136-145 hyzd=800) POTASSIUM (BEAKER) (test 4.0 meq/L 3.5-5.1 hrov=226) CHLORIDE (BEAKER) (test 101 meq/L 98-107 cvqi=424) CO2 (BEAKER) (test 21 meq/L 22-29 ruhn=347) BLOOD UREA NITROGEN 28 mg/dL 7-21 (BEAKER) (test wuyg=499) CREATININE (BEAKER) (test 1.65 mg/dL 0.57-1.25 jfhb=157) GLUCOSE RANDOM (BEAKER) 122 mg/dL 70-105 (test uamn=225) CALCIUM (BEAKER) (test 9.3 mg/dL 8.4-10.2 lmmw=749) AST (SGOT) (BEAKER) (test 15 U/L 5-34 iigb=283) ALT (SGPT) (BEAKER) (test 8 U/L 6-55 rzwx=968) EGFR (BEAKER) (test 44 mL/min/1.73 sq m ESTIMATED GFR IS NOT ymmv=8174) ACCURATE CREATININE CLEARANCE IN PREDICTING GLOMERULAR FILTRATION RATE. ESTIMATED GFR IS NOT APPLICABLE FOR DIALYSIS PATIENTS. Specimen slightly ictericPROTHROMBIN [id number] 04:48:00 Test Item Value Reference Range Comments PROTIME (BEAKER) (test hzjd=152) 20.9 seconds 11.7-14.7 INR (BEAKER) (test gxqq=198) 1.8 <=5.9 RECOMMENDED COUMADIN/WARFARIN INR THERAPY RANGESSTANDARD DOSE: 2.0 - 3.0 Includes: PROPHYLAXIS forvenous thrombosis, systemic embolization; TREATMENT for venous thrombosis and/or pulmonary embolus.HIGH RISK: Target INR is 2.5-3.5 for patients with mechanical heart valves.CBC W/PLT COUNT & AUTO [id number] 04:45:00 Test Item Value Reference Range Comments WHITE BLOOD CELL COUNT (BEAKER) (test kxxq=046) 3.4 K/ L 3.5-10.5 RED BLOOD CELL COUNT (BEAKER) (test epcp=243) 2.55 M/ L 4.63-6.08 HEMOGLOBIN (BEAKER) (test utff=453) 8.1 GM/DL 13.7-17.5 HEMATOCRIT (BEAKER) (test ehih=042) 24.0 % 40.1-51.0 MEAN CORPUSCULAR VOLUME (BEAKER) (test klpk=390) 94.1 fL 79.0-92.2 MEAN CORPUSCULAR HEMOGLOBIN (BEAKER) (test 31.8 pg 25.7-32.2 hcne=508) MEAN CORPUSCULAR HEMOGLOBIN CONC (BEAKER) (test 33.8 GM/DL 32.3-36.5 nptw=136) RED CELL DISTRIBUTION WIDTH (BEAKER) (test 15.8 % 11.6-14.4 sidc=148) PLATELET COUNT (BEAKER) (test gnpu=737) 41 K/CU MM 150-450 MEAN PLATELET VOLUME (BEAKER) (test npnb=034) 10.0 fL 9.4-12.4 NUCLEATED RED BLOOD CELLS (BEAKER) (test 0 /100 WBC 0-0 wnok=287) NEUTROPHILS RELATIVE PERCENT (BEAKER) (test 63 % txqd=760) LYMPHOCYTES RELATIVE PERCENT (BEAKER) (test 19 % lnfr=064) MONOCYTES RELATIVE PERCENT (BEAKER) (test 16 % osym=288) EOSINOPHILS RELATIVE PERCENT (BEAKER) (test 2 % wwdq=244) BASOPHILS RELATIVE PERCENT (BEAKER) (test 0 % hybd=321) NEUTROPHILS ABSOLUTE COUNT (BEAKER) (test 2.13 K/ L 1.78-5.38 uuzy=682) LYMPHOCYTES ABSOLUTE COUNT (BEAKER) (test 0.62 K/ L 1.32-3.57 btfc=159) MONOCYTES ABSOLUTE COUNT (BEAKER) (test schz=726) 0.52 K/ L 0.30-0.82 EOSINOPHILS ABSOLUTE COUNT (BEAKER) (test 0.08 K/ L 0.04-0.54 qnbn=549) BASOPHILS ABSOLUTE COUNT (BEAKER) (test ovok=851) 0.00 K/ L 0.01-0.08 IMMATURE GRANULOCYTES-RELATIVE PERCENT (BEAKER) 0 % 0-1 (test ozol=6535) POCT-GLUCOSE [id number] 21:35:00 Test Item Value Reference Range Comments POC-GLUCOSE METER (BEAKER) 215 mg/dL 70-110 TESTED AT [facility] [address] [facility] (test ighw=5797) [facility] [address] POCT-GLUCOSE [id number] 18:17:00 Test Item Value Reference Range Comments POC-GLUCOSE METER (BEAKER) 149 mg/dL 70-110 TESTED AT [facility] [address] [facility] (test vltv=0110) [facility] [address] COMPREHENSIVE METABOLIC [id number] 07:34:00 Test Item Value Reference Range Comments TOTAL PROTEIN (BEAKER) 4.7 gm/dL 6.0-8.3 Specimen slightly (test ncrg=345) hemolyzed ALBUMIN (BEAKER) (test 3.0 g/dL 3.5-5.0 Specimen slightly jcbq=1334) hemolyzed ALKALINE PHOSPHATASE 107 U/L 40-150 (BEAKER) (test mman=688) BILIRUBIN TOTAL (BEAKER) 3.1 mg/dL 0.2-1.2 Specimen slightly (test kjxv=600) hemolyzed SODIUM (BEAKER) (test 125 meq/L 136-145 foge=789) POTASSIUM (BEAKER) (test 4.9 meq/L 3.5-5.1 Specimen slightly myxo=933) hemolyzed CHLORIDE (BEAKER) (test 96 meq/L 98-107 uejz=036) CO2 (BEAKER) (test 24 meq/L 22-29 lhis=405) BLOOD UREA NITROGEN 30 mg/dL 7-21 (BEAKER) (test aywq=579) CREATININE (BEAKER) (test 1.61 mg/dL 0.57-1.25 Specimen slightly ippj=359) hemolyzed GLUCOSE RANDOM (BEAKER) 127 mg/dL 70-105 (test khxa=192) CALCIUM (BEAKER) (test 8.6 mg/dL 8.4-10.2 dirc=623) AST (SGOT) (BEAKER) (test 17 U/L 5-34 Specimen slightly yhay=015) hemolyzed ALT (SGPT) (BEAKER) (test < U/L 6-55 Specimen slightly dkrc=107) hemolyzed EGFR (BEAKER) (test 45 mL/min/1.73 sq m ESTIMATED GFR IS NOT yqsu=5967) ACCURATE CREATININE CLEARANCE IN PREDICTING GLOMERULAR FILTRATION RATE. ESTIMATED GFR IS NOT APPLICABLE FOR DIALYSIS PATIENTS. Specimen slightly [id number] 06:49:00 Test Item Value Reference Range Comments PHOSPHORUS (BEAKER) (test hvxj=802) 3.0 mg/dL 2.3-4.7 [id number] 06:49:00 Test Item Value Reference Range Comments MAGNESIUM (BEAKER) (test brqw=218) 2.0 mg/dL 1.6-2.6 PROTHROMBIN [id number] 06:39:00 Test Item Value Reference Range Comments PROTIME (BEAKER) (test wock=460) 23.0 seconds 11.7-14.7 INR (BEAKER) (test tqco=111) 2.0 <=5.9 RECOMMENDED COUMADIN/WARFARIN INR THERAPY RANGESSTANDARD DOSE: 2.0 - 3.0 Includes: PROPHYLAXIS forvenous thrombosis, systemic embolization; TREATMENT for venous thrombosis and/or pulmonary embolus.HIGH RISK: Target INR is 2.5-3.5 for patients with mechanical heart valves.CBC W/PLT COUNT & AUTO [id number] 06:37:00 Test Item Value Reference Range Comments WHITE BLOOD CELL COUNT (BEAKER) (test raik=623) 3.3 K/ L 3.5-10.5 RED BLOOD CELL COUNT (BEAKER) (test ajso=961) 2.43 M/ L 4.63-6.08 HEMOGLOBIN (BEAKER) (test eyzs=220) 7.8 GM/DL 13.7-17.5 HEMATOCRIT (BEAKER) (test qcku=765) 22.7 % 40.1-51.0 MEAN CORPUSCULAR VOLUME (BEAKER) (test mxbk=325) 93.4 fL 79.0-92.2 MEAN CORPUSCULAR HEMOGLOBIN (BEAKER) (test 32.1 pg 25.7-32.2 krqt=832) MEAN CORPUSCULAR HEMOGLOBIN CONC (BEAKER) (test 34.4 GM/DL 32.3-36.5 buwn=860) RED CELL DISTRIBUTION WIDTH (BEAKER) (test 15.7 % 11.6-14.4 wiod=294) PLATELET COUNT (BEAKER) (test fqir=062) 37 K/CU MM 150-450 MEAN PLATELET VOLUME (BEAKER) (test uass=091) 9.6 fL 9.4-12.4 NUCLEATED RED BLOOD CELLS (BEAKER) (test 0 /100 WBC 0-0 wgzr=871) NEUTROPHILS RELATIVE PERCENT (BEAKER) (test 70 % avwt=741) LYMPHOCYTES RELATIVE PERCENT (BEAKER) (test 16 % afcy=885) MONOCYTES RELATIVE PERCENT (BEAKER) (test 11 % gzva=961) EOSINOPHILS RELATIVE PERCENT (BEAKER) (test 2 % cfiu=908) BASOPHILS RELATIVE PERCENT (BEAKER) (test 0 % rjiv=950) NEUTROPHILS ABSOLUTE COUNT (BEAKER) (test 2.29 K/ L 1.78-5.38 coxo=107) LYMPHOCYTES ABSOLUTE COUNT (BEAKER) (test 0.51 K/ L 1.32-3.57 rwgo=023) MONOCYTES ABSOLUTE COUNT (BEAKER) (test uzyj=725) 0.37 K/ L 0.30-0.82 EOSINOPHILS ABSOLUTE COUNT (BEAKER) (test 0.07 K/ L 0.04-0.54 lffv=263) BASOPHILS ABSOLUTE COUNT (BEAKER) (test mewy=844) 0.01 K/ L 0.01-0.08 IMMATURE GRANULOCYTES-RELATIVE PERCENT (BEAKER) 0 % 0-1 (test qnkn=3371) CALCIUM, [id number] 06:36:00 Test Item Value Reference Range Comments CALCIUM IONIZED (BEAKER) (test clyr=406) 1.00 mmol/L 1.12-1.27 PH, BLOOD (BEAKER) (test lrdu=4686) 7.53 POCT-GLUCOSE [id number] 22:31:00 Test Item Value Reference Range Comments POC-GLUCOSE METER (BEAKER) 185 mg/dL 70-110 TESTED AT [address] (test mywb=4679) [facility] [address] POCT-GLUCOSE [id number] 16:03:00 Test Item Value Reference Range Comments POC-GLUCOSE METER (BEAKER) 166 mg/dL 70-110 TESTED AT [address] (test cehc=2023) [facility] [address] POCT-GLUCOSE [id number] 12:05:00 Test Item Value Reference Range Comments POC-GLUCOSE METER (BEAKER) 175 mg/dL 70-110 TESTED AT [address] (test kmup=8036) [facility] [address] POCT-GLUCOSE [id number] 08:02:00 Test Item Value Reference Range Comments POC-GLUCOSE METER (BEAKER) 162 mg/dL 70-110 TESTED AT [facility] [address] (test orbn=1422) [place] [address] [id number] 03:52:00 Test Item Value Reference Range Comments MAGNESIUM (BEAKER) (test 2.1 mg/dL 1.6-2.6 Specimen slightly hemolyzed bwsg=740) [id number] 03:52:00 Test Item Value Reference Range Comments PHOSPHORUS (BEAKER) (test 3.0 mg/dL 2.3-4.7 Specimen slightly hemolyzed xsdu=890) COMPREHENSIVE METABOLIC [id number] 03:52:00 Test Item Value Reference Range Comments TOTAL PROTEIN (BEAKER) 4.9 gm/dL 6.0-8.3 Specimen slightly (test ggga=671) hemolyzed ALBUMIN (BEAKER) (test 3.2 g/dL 3.5-5.0 Specimen slightly ogyl=3338) hemolyzed ALKALINE PHOSPHATASE 109 U/L 40-150 (BEAKER) (test rfdy=285) BILIRUBIN TOTAL (BEAKER) 2.7 mg/dL 0.2-1.2 Specimen slightly (test samx=512) hemolyzed SODIUM (BEAKER) (test 125 meq/L 136-145 lxwe=829) POTASSIUM (BEAKER) (test 4.7 meq/L 3.5-5.1 Specimen slightly sqrg=375) hemolyzed CHLORIDE (BEAKER) (test 96 meq/L 98-107 jurh=416) CO2 (BEAKER) (test 23 meq/L 22-29 rwnw=137) BLOOD UREA NITROGEN 27 mg/dL 7-21 (BEAKER) (test tamb=060) CREATININE (BEAKER) (test 1.86 mg/dL 0.57-1.25 Specimen slightly jdkh=727) hemolyzed GLUCOSE RANDOM (BEAKER) 164 mg/dL 70-105 (test rtue=193) CALCIUM (BEAKER) (test 8.4 mg/dL 8.4-10.2 lqcx=011) AST (SGOT) (BEAKER) (test 17 U/L 5-34 Specimen slightly ztji=758) hemolyzed ALT (SGPT) (BEAKER) (test 6 U/L 6-55 Specimen slightly bkjm=302) hemolyzed EGFR (BEAKER) (test 38 mL/min/1.73 sq m ESTIMATED GFR IS NOT tfuu=2454) ACCURATE CREATININE CLEARANCE IN PREDICTING GLOMERULAR FILTRATION RATE. ESTIMATED GFR IS NOT APPLICABLE FOR DIALYSIS PATIENTS. Specimen slightly ictericCALCIUM, [id number] 03:13:00 Test Item Value Reference Range Comments CALCIUM IONIZED (BEAKER) (test essj=692) 0.94 mmol/L 1.12-1.27 PH, BLOOD (BEAKER) (test rnhc=0337) 7.55 PROTHROMBIN [id number] 03:10:00 Test Item Value Reference Range Comments PROTIME (BEAKER) (test pnrw=119) 22.6 seconds 11.7-14.7 INR (BEAKER) (test ozav=502) 2.0 <=5.9 RECOMMENDED COUMADIN/WARFARIN INR THERAPY RANGESSTANDARD DOSE: 2.0 - 3.0 Includes: PROPHYLAXIS forvenous thrombosis, systemic embolization; TREATMENT for venous thrombosis and/or pulmonary embolus.HIGH RISK: Target INR is 2.5-3.5 for patients with mechanical heart valves.CBC W/PLT COUNT & AUTO [id number] 03:03:00 Test Item Value Reference Range Comments WHITE BLOOD CELL COUNT (BEAKER) (test xbyk=041) 3.4 K/ L 3.5-10.5 RED BLOOD CELL COUNT (BEAKER) (test xyhh=561) 2.46 M/ L 4.63-6.08 HEMOGLOBIN (BEAKER) (test bcoq=641) 7.8 GM/DL 13.7-17.5 HEMATOCRIT (BEAKER) (test soea=524) 23.5 % 40.1-51.0 MEAN CORPUSCULAR VOLUME (BEAKER) (test xree=050) 95.5 fL 79.0-92.2 MEAN CORPUSCULAR HEMOGLOBIN (BEAKER) (test 31.7 pg 25.7-32.2 rduw=974) MEAN CORPUSCULAR HEMOGLOBIN CONC (BEAKER) (test 33.2 GM/DL 32.3-36.5 tztr=345) RED CELL DISTRIBUTION WIDTH (BEAKER) (test 15.6 % 11.6-14.4 tpqm=747) PLATELET COUNT (BEAKER) (test prjb=193) 44 K/CU MM 150-450 MEAN PLATELET VOLUME (BEAKER) (test frwp=468) 10.6 fL 9.4-12.4 NUCLEATED RED BLOOD CELLS (BEAKER) (test 0 /100 WBC 0-0 dzyt=061) NEUTROPHILS RELATIVE PERCENT (BEAKER) (test 79 % fxso=628) LYMPHOCYTES RELATIVE PERCENT (BEAKER) (test 12 % xjfe=103) MONOCYTES RELATIVE PERCENT (BEAKER) (test 8 % chsf=774) EOSINOPHILS RELATIVE PERCENT (BEAKER) (test 0 % nsjy=531) BASOPHILS RELATIVE PERCENT (BEAKER) (test 0 % wsns=493) NEUTROPHILS ABSOLUTE COUNT (BEAKER) (test 2.67 K/ L 1.78-5.38 irrb=682) LYMPHOCYTES ABSOLUTE COUNT (BEAKER) (test 0.41 K/ L 1.32-3.57 kura=661) MONOCYTES ABSOLUTE COUNT (BEAKER) (test xhkb=370) 0.27 K/ L 0.30-0.82 EOSINOPHILS ABSOLUTE COUNT (BEAKER) (test 0.01 K/ L 0.04-0.54 jzeu=191) BASOPHILS ABSOLUTE COUNT (BEAKER) (test sjoi=688) 0.01 K/ L 0.01-0.08 IMMATURE GRANULOCYTES-RELATIVE PERCENT (BEAKER) 0 % 0-1 (test bsam=7764) POCT-GLUCOSE [id number] 22:50:00 Test Item Value Reference Range Comments POC-GLUCOSE METER (BEAKER) 199 mg/dL 70-110 TESTED AT [facility] [address] [facility] (test frar=4753) [facility] [address] BODY FLUID CELL COUNT WITH [id number] 21:09:00 Test Item Value Reference Range Comments APPEARANCE FLUID (BEAKER) (test eosi=829) Clear Clear COLOR FLUID (BEAKER) (test lpmx=323) Yellow Colorless, Straw RBC FLUID (BEAKER) (test rkmi=336) 140 /cu mm <=1 ADJUSTED WBC FLUID (BEAKER) (test port=7559) 70 /cu mm <=5 LINING CELLS (BEAKER) (test ndbx=4196) 0 /cu mm <=1 NEUTROPHILS FLUID (BEAKER) (test xpcl=4634) 5 % LYMPHS FLUID (BEAKER) (test ugba=862) 18 % MONO/MACROPHAGE FLUID (BEAKER) (test hlvt=713) 77 % EOSINOPHILS FLUID (BEAKER) (test lxrn=866) 0 % BASO FLUID (BEAKER) (test qeyz=334) 0 % CONTAINER BODY FLUID (BEAKER) (test fzyq=6587) EDTA Tube CORTISOL,60 [id number] 20:10:00 Test Item Value Reference Range Comments CORTISOL BASELINE NETWORKED (BEAKER) (test 5.6 mcg/dL zcvn=6855) CORTISOL 30 MINUTE NETWORKED (BEAKER) (test 13.7 mcg/dL jqca=5314) CORTISOL, 60 MINUTE (BEAKER) (test aetv=3378) 17.1 ug/dL ACTH STIMULATION TEST INTERPRETATION GUIDELINES(Synonyms: [...] serum cortisollevel 60 minutes after cosyntropin administration.CORTISOL,30 [id number] 19:45:00 Test Item Value Reference Range Comments CORTISOL BASELINE NETWORKED (BEAKER) (test 5.6 mcg/dL tqpt=2505) CORTISOL, 30 MINUTE (BEAKER) (test xabg=0278) 13.7 ug/dL ACTH STIMULATION TEST INTERPRETATION GUIDELINES(Synonyms: [...] serum cortisollevel 60 minutes after cosyntropin administration.U/S, [id number] 19:13:00Reason for exam:->therapeuticFINAL REPORT PROCEDURE: Ultrasound- guided paracentesis. INDICATION: Ascites. DESCRIPTION: After obtaining informed written consent, ultrasound scan of the abdomen identified ascites in the right lower quadrant. The overlying skin was prepped and draped in the usual, sterile fashion and local 1% lidocaine anesthesia was administered. A 5 Burmese catheter was advanced into the peritoneal cavity and 6000 mL of area fluid was removed. The catheter was removed without immediate complication. Samples were sent for analysis. IMPRESSION:Uncomplicated ultrasound-guided paracentesis with 6000 mL of fluid removed. Signed: Stuart Dupree [facility] Verified Date/Time: 09/08/2018 19 :13:16 Reading Location: [address] Ultrasound Reading Room Electronically signed by: Claudia WEAVER 09/08/2018 07:13 PMCORTISOL, [id number] 18:54:00 Test Item Value Reference Range Comments CORTISOL, BASELINE (TUNG) (test senr=0020) 5.6 ug/dL ACTH STIMULATION TEST INTERPRETATION GUIDELINES(Synonyms: [...] serum cortisollevel 60 minutes after cosyntropin administration.POCT-GLUCOSE [id number] 12:49:00 Test Item Value Reference Range Comments POC-GLUCOSE METER (BEAKER) 184 mg/dL 70-110 TESTED AT [address] (test mtfz=2367) [place] [address] POCT-GLUCOSE [id number] 07:56:00 Test Item Value Reference Range Comments POC-GLUCOSE METER (BEAKER) 174 mg/dL 70-110 TESTED AT [address] (test bwtr=6951) [place] [address] B-TYPE NATRIURETIC FACTOR (BNP)2018-09-08 05:20:00 Test Item Value Reference Range Comments B-TYPE NATRIURETIC PEPTIDE (BEAKER) (test 900 pg/mL 0-100 qasj=098) [id number] 05:15:00 Test Item Value Reference Range Comments PHOSPHORUS (BEAKER) (test mwwu=227) 3.2 mg/dL 2.3-4.7 [id number] 05:15:00 Test Item Value Reference Range Comments MAGNESIUM (BEAKER) (test gdze=882) 2.1 mg/dL 1.6-2.6 COMPREHENSIVE METABOLIC [id number] 05:15:00 Test Item Value Reference Range Comments TOTAL PROTEIN (BEAKER) 4.9 gm/dL 6.0-8.3 (test cczp=752) ALBUMIN (BEAKER) (test 3.2 g/dL 3.5-5.0 radt=5167) ALKALINE PHOSPHATASE 109 U/L 40-150 (BEAKER) (test ekpd=492) BILIRUBIN TOTAL (BEAKER) 2.7 mg/dL 0.2-1.2 (test mxyj=644) SODIUM (BEAKER) (test 128 meq/L 136-145 zfhv=021) POTASSIUM (BEAKER) (test 3.9 meq/L 3.5-5.1 vqmg=160) CHLORIDE (BEAKER) (test 98 meq/L 98-107 eiyw=593) CO2 (BEAKER) (test 23 meq/L 22-29 hvuq=005) BLOOD UREA NITROGEN 27 mg/dL 7-21 (BEAKER) (test mzps=144) CREATININE (BEAKER) (test 2.17 mg/dL 0.57-1.25 ajgd=811) GLUCOSE RANDOM (BEAKER) 136 mg/dL 70-105 (test cxji=936) CALCIUM (BEAKER) (test 8.6 mg/dL 8.4-10.2 wfzq=741) AST (SGOT) (BEAKER) (test 15 U/L 5-34 bhoi=864) ALT (SGPT) (BEAKER) (test 7 U/L 6-55 uuyq=358) EGFR (BEAKER) (test 32 mL/min/1.73 sq m ESTIMATED GFR IS NOT oawe=0063) ACCURATE CREATININE CLEARANCE IN PREDICTING GLOMERULAR FILTRATION RATE. ESTIMATED GFR IS NOT APPLICABLE FOR DIALYSIS PATIENTS. Specimen slightly ictericPROTHROMBIN [id number] 05:01:00 Test Item Value Reference Range Comments PROTIME (BEAKER) (test xobu=776) 22.0 seconds 11.7-14.7 INR (BEAKER) (test xjis=414) 1.9 <=5.9 RECOMMENDED COUMADIN/WARFARIN INR THERAPY RANGESSTANDARD DOSE: 2.0 - 3.0 Includes: PROPHYLAXIS forvenous thrombosis, systemic embolization; TREATMENT for venous thrombosis and/or pulmonary embolus.HIGH RISK: Target INR is 2.5-3.5 for patients with mechanical heart valves.CBC W/PLT COUNT & AUTO [id number] 04:55:00 Test Item Value Reference Range Comments WHITE BLOOD CELL COUNT (BEAKER) (test jlll=372) 4.3 K/ L 3.5-10.5 RED BLOOD CELL COUNT (BEAKER) (test ywwo=596) 2.46 M/ L 4.63-6.08 HEMOGLOBIN (BEAKER) (test tvdn=380) 7.9 GM/DL 13.7-17.5 HEMATOCRIT (BEAKER) (test pzec=473) 23.3 % 40.1-51.0 MEAN CORPUSCULAR VOLUME (BEAKER) (test icpu=268) 94.7 fL 79.0-92.2 MEAN CORPUSCULAR HEMOGLOBIN (BEAKER) (test 32.1 pg 25.7-32.2 xarz=064) MEAN CORPUSCULAR HEMOGLOBIN CONC (BEAKER) (test 33.9 GM/DL 32.3-36.5 zeyn=388) RED CELL DISTRIBUTION WIDTH (BEAKER) (test 15.6 % 11.6-14.4 jnkk=275) PLATELET COUNT (BEAKER) (test nbtf=541) 43 K/CU MM 150-450 MEAN PLATELET VOLUME (BEAKER) (test vkzc=159) 9.6 fL 9.4-12.4 NUCLEATED RED BLOOD CELLS (BEAKER) (test 0 /100 WBC 0-0 sxyg=378) NEUTROPHILS RELATIVE PERCENT (BEAKER) (test 63 % rrai=093) LYMPHOCYTES RELATIVE PERCENT (BEAKER) (test 13 % smjt=248) MONOCYTES RELATIVE PERCENT (BEAKER) (test 19 % gljz=583) EOSINOPHILS RELATIVE PERCENT (BEAKER) (test 5 % npxl=753) BASOPHILS RELATIVE PERCENT (BEAKER) (test 0 % iwsi=167) NEUTROPHILS ABSOLUTE COUNT (BEAKER) (test 2.72 K/ L 1.78-5.38 olwz=377) LYMPHOCYTES ABSOLUTE COUNT (BEAKER) (test 0.55 K/ L 1.32-3.57 gvnu=833) MONOCYTES ABSOLUTE COUNT (BEAKER) (test aepb=469) 0.81 K/ L 0.30-0.82 EOSINOPHILS ABSOLUTE COUNT (BEAKER) (test 0.21 K/ L 0.04-0.54 unna=077) BASOPHILS ABSOLUTE COUNT (BEAKER) (test vkkb=313) 0.01 K/ L 0.01-0.08 IMMATURE GRANULOCYTES-RELATIVE PERCENT (BEAKER) 0 % 0-1 (test yvcz=4817) POCT-GLUCOSE [id number] 23:33:00 Test Item Value Reference Range Comments POC-GLUCOSE METER (BEAKER) 156 mg/dL 70-110 TESTED AT [facility] [address] [facility] (test azsh=0026) [facility] [address] POCT-GLUCOSE [id number] 18:09:00 Test Item Value Reference Range Comments POC-GLUCOSE METER (BEAKER) 170 mg/dL 70-110 TESTED AT [facility] [address] [place] [address] (test kghn=0270) [facility] [address] POCT-GLUCOSE [id number] 12:01:00 Test Item Value Reference Range Comments POC-GLUCOSE METER (BEAKER) 181 mg/dL 70-110 TESTED AT [address] (test gset=2319) [facility] [address] PROTHROMBIN [id number] 08:17:00 Test Item Value Reference Range Comments PROTIME (BEAKER) (test dgvr=666) 21.9 seconds 11.7-14.7 INR (BEAKER) (test tdpv=487) 1.9 <=5.9 RECOMMENDED COUMADIN/WARFARIN INR THERAPY RANGESSTANDARD DOSE: 2.0 - 3.0 Includes: PROPHYLAXIS forvenous thrombosis, systemic embolization; TREATMENT for venous thrombosis and/or pulmonary embolus.HIGH RISK: Target INR is 2.5-3.5 for patients with mechanical heart valves.POCT-GLUCOSE [id number] 08:07:00 Test Item Value Reference Range Comments POC-GLUCOSE METER (BEAKER) 205 mg/dL 70-110 TESTED AT [address] (test hnkq=7283) [facility] [address] COMPREHENSIVE METABOLIC [id number] 07:29:00 Test Item Value Reference Range Comments TOTAL PROTEIN (BEAKER) 4.9 gm/dL 6.0-8.3 (test owue=285) ALBUMIN (BEAKER) (test 3.3 g/dL 3.5-5.0 gibt=6063) ALKALINE PHOSPHATASE 106 U/L 40-150 (BEAKER) (test phho=023) BILIRUBIN TOTAL (BEAKER) 2.6 mg/dL 0.2-1.2 (test qxvx=213) SODIUM (BEAKER) (test 129 meq/L 136-145 olih=028) POTASSIUM (BEAKER) (test 4.9 meq/L 3.5-5.1 rbvp=840) CHLORIDE (BEAKER) (test 98 meq/L 98-107 iwez=992) CO2 (BEAKER) (test 23 meq/L 22-29 mprp=084) BLOOD UREA NITROGEN 28 mg/dL 7-21 (BEAKER) (test uwtf=960) CREATININE (BEAKER) (test 2.31 mg/dL 0.57-1.25 vkrn=863) GLUCOSE RANDOM (BEAKER) 172 mg/dL 70-105 (test ejox=357) CALCIUM (BEAKER) (test 8.5 mg/dL 8.4-10.2 hdwh=809) AST (SGOT) (BEAKER) (test 15 U/L 5-34 pbmr=903) ALT (SGPT) (BEAKER) (test 6 U/L 6-55 tjah=635) EGFR (BEAKER) (test 30 mL/min/1.73 sq m ESTIMATED GFR IS NOT kkay=4075) ACCURATE CREATININE CLEARANCE IN PREDICTING GLOMERULAR FILTRATION RATE. ESTIMATED GFR IS NOT APPLICABLE FOR DIALYSIS PATIENTS. Specimen slightly ictericCBC W/PLT COUNT & AUTO [id number] 07:11 :00 Test Item Value Reference Range Comments WHITE BLOOD CELL COUNT (BEAKER) (test wcrt=378) 4.5 K/ L 3.5-10.5 RED BLOOD CELL COUNT (BEAKER) (test nqmi=075) 2.47 M/ L 4.63-6.08 HEMOGLOBIN (BEAKER) (test zmrt=058) 7.8 GM/DL 13.7-17.5 HEMATOCRIT (BEAKER) (test hzcn=871) 23.3 % 40.1-51.0 MEAN CORPUSCULAR VOLUME (BEAKER) (test ukjg=199) 94.3 fL 79.0-92.2 MEAN CORPUSCULAR HEMOGLOBIN (BEAKER) (test 31.6 pg 25.7-32.2 xbvb=575) MEAN CORPUSCULAR HEMOGLOBIN CONC (BEAKER) (test 33.5 GM/DL 32.3-36.5 kvaz=100) RED CELL DISTRIBUTION WIDTH (BEAKER) (test 15.4 % 11.6-14.4 zmfp=284) PLATELET COUNT (BEAKER) (test dlit=549) 43 K/CU MM 150-450 MEAN PLATELET VOLUME (BEAKER) (test oxmh=901) 8.7 fL 9.4-12.4 NUCLEATED RED BLOOD CELLS (BEAKER) (test 0 /100 WBC 0-0 whdb=459) NEUTROPHILS RELATIVE PERCENT (BEAKER) (test 64 % cpen=271) LYMPHOCYTES RELATIVE PERCENT (BEAKER) (test 11 % wncn=751) MONOCYTES RELATIVE PERCENT (BEAKER) (test 20 % qcyi=385) EOSINOPHILS RELATIVE PERCENT (BEAKER) (test 4 % glnh=724) BASOPHILS RELATIVE PERCENT (BEAKER) (test 0 % shzc=289) NEUTROPHILS ABSOLUTE COUNT (BEAKER) (test 2.86 K/ L 1.78-5.38 yptm=448) LYMPHOCYTES ABSOLUTE COUNT (BEAKER) (test 0.49 K/ L 1.32-3.57 pseb=311) MONOCYTES ABSOLUTE COUNT (BEAKER) (test awpy=282) 0.90 K/ L 0.30-0.82 EOSINOPHILS ABSOLUTE COUNT (BEAKER) (test 0.18 K/ L 0.04-0.54 byzf=576) BASOPHILS ABSOLUTE COUNT (BEAKER) (test rscr=257) 0.02 K/ L 0.01-0.08 IMMATURE GRANULOCYTES-RELATIVE PERCENT (BEAKER) 0 % 0-1 (test rztz=8826) POCT-GLUCOSE [id number] 22:31:00 Test Item Value Reference Range Comments POC-GLUCOSE METER (BEAKER) 161 mg/dL 70-110 TESTED AT [address] (test twlm=7652) [facility] [address] POCT-GLUCOSE [id number] 16:31:00 Test Item Value Reference Range Comments POC-GLUCOSE METER (BEAKER) 135 mg/dL 70-110 TESTED AT [address] (test ycpo=3822) [place] [id number] POCT-GLUCOSE [id number] 12:16:00 Test Item Value Reference Range Comments POC-GLUCOSE METER (BEAKER) 144 mg/dL 70-110 TESTED AT [address] (test oyja=4980) [place] [id number] POCT-GLUCOSE [id number] 07:53:00 Test Item Value Reference Range Comments POC-GLUCOSE METER (BEAKER) 93 mg/dL 70-110 TESTED AT [address] (test duce=3137) [place] [address] COMPREHENSIVE METABOLIC [id number] 06:55:00 Test Item Value Reference Range Comments TOTAL PROTEIN (BEAKER) 4.8 gm/dL 6.0-8.3 (test xzgy=271) ALBUMIN (BEAKER) (test 3.3 g/dL 3.5-5.0 sqfu=7078) ALKALINE PHOSPHATASE 103 U/L 40-150 (BEAKER) (test cvph=023) BILIRUBIN TOTAL (BEAKER) 2.7 mg/dL 0.2-1.2 (test biyl=344) SODIUM (BEAKER) (test 125 meq/L 136-145 hvcx=328) POTASSIUM (BEAKER) (test 4.6 meq/L 3.5-5.1 wrha=662) CHLORIDE (BEAKER) (test 96 meq/L 98-107 pspa=822) CO2 (BEAKER) (test 22 meq/L 22-29 avis=659) BLOOD UREA NITROGEN 30 mg/dL 7-21 (BEAKER) (test ljro=682) CREATININE (BEAKER) (test 2.01 mg/dL 0.57-1.25 xjxr=168) GLUCOSE RANDOM (BEAKER) 88 mg/dL 70-105 (test tkmy=561) CALCIUM (BEAKER) (test 8.5 mg/dL 8.4-10.2 qefv=779) AST (SGOT) (BEAKER) (test 17 U/L 5-34 jxcj=820) ALT (SGPT) (BEAKER) (test 7 U/L 6-55 gvbj=288) EGFR (BEAKER) (test 35 mL/min/1.73 sq m ESTIMATED GFR IS NOT hsep=8592) ACCURATE CREATININE CLEARANCE IN PREDICTING GLOMERULAR FILTRATION RATE. ESTIMATED GFR IS NOT APPLICABLE FOR DIALYSIS PATIENTS. Specimen slightly ictericPROTHROMBIN [id number] 06:10:00 Test Item Value Reference Range Comments PROTIME (BEAKER) (test ajji=510) 23.2 seconds 11.7-14.7 INR (BEAKER) (test jsec=208) 2.1 <=5.9 RECOMMENDED COUMADIN/WARFARIN INR THERAPY RANGESSTANDARD DOSE: 2.0 - 3.0 Includes: PROPHYLAXIS forvenous thrombosis, systemic embolization; TREATMENT for venous thrombosis and/or pulmonary embolus.HIGH RISK: Target INR is 2.5-3.5 for patients with mechanical heart valves.POCT-GLUCOSE [id number] 22:42:00 Test Item Value Reference Range Comments POC-GLUCOSE METER (BEAKER) 124 mg/dL 70-110 TESTED AT [facility] [address] (test fgry=4373) [facility] [address] POCT-GLUCOSE [id number] 17:04:00 Test Item Value Reference Range Comments POC-GLUCOSE METER (BEAKER) 86 mg/dL 70-110 TESTED AT [facility] [address] [facility] (test rgoc=5879) [facility] [address] POCT-GLUCOSE [id number] 12:08:00 Test Item Value Reference Range Comments POC-GLUCOSE METER (BEAKER) 159 mg/dL 70-110 TESTED AT [facility] [address] [facility] (test ekcd=2815) [facility] [address] [id number] 08:39:00 Test Item Value Reference Range Comments PHOSPHORUS (BEAKER) (test ovrs=572) 3.9 mg/dL 2.3-4.7 [id number] 08:39:00 Test Item Value Reference Range Comments MAGNESIUM (BEAKER) (test zufm=913) 2.1 mg/dL 1.6-2.6 COMPREHENSIVE METABOLIC [id number] 08:39:00 Test Item Value Reference Range Comments TOTAL PROTEIN (BEAKER) 5.2 gm/dL 6.0-8.3 (test tlcp=435) ALBUMIN (BEAKER) (test 3.5 g/dL 3.5-5.0 ulex=1273) ALKALINE PHOSPHATASE 110 U/L 40-150 (BEAKER) (test knyq=734) BILIRUBIN TOTAL (BEAKER) 2.4 mg/dL 0.2-1.2 (test etda=657) SODIUM (BEAKER) (test 122 meq/L 136-145 xgmr=474) POTASSIUM (BEAKER) (test 4.5 meq/L 3.5-5.1 ygtm=348) CHLORIDE (BEAKER) (test 94 meq/L 98-107 pmwp=125) CO2 (BEAKER) (test 20 meq/L 22-29 akha=019) BLOOD UREA NITROGEN 31 mg/dL 7-21 (BEAKER) (test uhnu=893) CREATININE (BEAKER) (test 1.94 mg/dL 0.57-1.25 udnk=124) GLUCOSE RANDOM (BEAKER) 127 mg/dL 70-105 (test uduz=093) CALCIUM (BEAKER) (test 8.6 mg/dL 8.4-10.2 wljp=020) AST (SGOT) (BEAKER) (test 17 U/L 5-34 oyhh=925) ALT (SGPT) (BEAKER) (test 8 U/L 6-55 dvnd=348) EGFR (BEAKER) (test 36 mL/min/1.73 sq m ESTIMATED GFR IS NOT cpmi=5737) ACCURATE CREATININE CLEARANCE IN PREDICTING GLOMERULAR FILTRATION RATE. ESTIMATED GFR IS NOT APPLICABLE FOR DIALYSIS PATIENTS. Specimen slightly ictericPOCT-GLUCOSE [id number] 07:49:00 Test Item Value Reference Range Comments POC-GLUCOSE METER (BEAKER) 132 mg/dL 70-110 TESTED AT [facility] [address] [facility] (test kuah=1915) [place] [address] CALCIUM, [id number] 06:35:00 Test Item Value Reference Range Comments CALCIUM IONIZED (BEAKER) (test qvim=370) 1.08 mmol/L 1.12-1.27 PH, BLOOD (BEAKER) (test ydly=4098) 7.39 CBC W/PLT COUNT & AUTO [id number] 05:56:00 Test Item Value Reference Range Comments WHITE BLOOD CELL COUNT (BEAKER) (test tlpg=535) 4.1 K/ L 3.5-10.5 RED BLOOD CELL COUNT (BEAKER) (test ycen=856) 2.67 M/ L 4.63-6.08 HEMOGLOBIN (BEAKER) (test lyrp=224) 8.3 GM/DL 13.7-17.5 HEMATOCRIT (BEAKER) (test puca=861) 24.7 % 40.1-51.0 MEAN CORPUSCULAR VOLUME (BEAKER) (test iymi=153) 92.5 fL 79.0-92.2 MEAN CORPUSCULAR HEMOGLOBIN (BEAKER) (test 31.1 pg 25.7-32.2 ecqc=777) MEAN CORPUSCULAR HEMOGLOBIN CONC (BEAKER) (test 33.6 GM/DL 32.3-36.5 iyyz=108) RED CELL DISTRIBUTION WIDTH (BEAKER) (test 15.0 % 11.6-14.4 ndqz=751) PLATELET COUNT (BEAKER) (test pqmv=096) 58 K/CU MM 150-450 MEAN PLATELET VOLUME (BEAKER) (test flvz=024) 9.3 fL 9.4-12.4 NUCLEATED RED BLOOD CELLS (BEAKER) (test 0 /100 WBC 0-0 rsdh=280) NEUTROPHILS RELATIVE PERCENT (BEAKER) (test 64 % knsv=161) LYMPHOCYTES RELATIVE PERCENT (BEAKER) (test 12 % kiaj=526) MONOCYTES RELATIVE PERCENT (BEAKER) (test 18 % xaom=709) EOSINOPHILS RELATIVE PERCENT (BEAKER) (test 5 % cbve=918) BASOPHILS RELATIVE PERCENT (BEAKER) (test 0 % utoe=473) NEUTROPHILS ABSOLUTE COUNT (BEAKER) (test 2.63 K/ L 1.78-5.38 yans=891) LYMPHOCYTES ABSOLUTE COUNT (BEAKER) (test 0.51 K/ L 1.32-3.57 tcor=778) MONOCYTES ABSOLUTE COUNT (BEAKER) (test uerz=068) 0.74 K/ L 0.30-0.82 EOSINOPHILS ABSOLUTE COUNT (BEAKER) (test 0.21 K/ L 0.04-0.54 tvyi=687) BASOPHILS ABSOLUTE COUNT (BEAKER) (test nkvn=275) 0.01 K/ L 0.01-0.08 IMMATURE GRANULOCYTES-RELATIVE PERCENT (BEAKER) 1 % 0-1 (test mnzj=8486) PROTHROMBIN [id number] 05:49:00 Test Item Value Reference Range Comments PROTIME (BEAKER) (test vckz=259) 20.4 seconds 11.7-14.7 INR (BEAKER) (test gqcx=323) 1.8 <=5.9 RECOMMENDED COUMADIN/WARFARIN INR THERAPY RANGESSTANDARD DOSE: 2.0 - 3.0 Includes: PROPHYLAXIS forvenous thrombosis, systemic embolization; TREATMENT for venous thrombosis and/or pulmonary embolus.HIGH RISK: Target INR is 2.5-3.5 for patients with mechanical heart valves.[id number] 22:31:00 Test Item Value Reference Range Comments SODIUM (BEAKER) (test hwrb=299) 123 meq/L 136-145 POTASSIUM (BEAKER) (test asjr=997) 4.5 meq/L 3.5-5.1 CHLORIDE (BEAKER) (test sdkk=128) 94 meq/L 98-107 CO2 (BEAKER) (test jizw=175) 22 meq/L 22-29 Call results "at a decent hour" to [phone]-GLUCOSE [id number] 21: 48:00 Test Item Value Reference Range Comments POC-GLUCOSE METER (BEAKER) 144 mg/dL 70-110 TESTED AT [facility] [address] [facility] (test jqho=7396) [facility] [address] [id number] 17:27:00 Test Item Value Reference Range Comments CORTISOL, TOTAL (BEAKER) (test scfk=9374) 1.9 ug/dL 3.7-19.4 [id number] 17:03:00 Test Item Value Reference Range Comments SODIUM (BEAKER) (test fzkn=565) 123 meq/L 136-145 POTASSIUM (BEAKER) (test tuwy=144) 4.7 meq/L 3.5-5.1 CHLORIDE (BEAKER) (test lyys=603) 95 meq/L 98-107 CO2 (BEAKER) (test opvl=887) 21 meq/L 22-29 Call resultsPOCT-GLUCOSE [id number] 16:48:00 Test Item Value Reference Range Comments POC-GLUCOSE METER (BEAKER) 117 mg/dL 70-110 TESTED AT [address] (test xzrz=5830) [place] [address] SODIUM, RANDOM [id number] 15:12:00 Test Item Value Reference Range Comments SODIUM URINE (BEAKER) (test dbwm=157) < meq/L Reference Range: No NormalsCREATININE, RANDOM [id number] 15:11:00 Test Item Value Reference Range Comments CREATININE URINE (BEAKER) (test wrul=168) 87.5 mg/dL Reference Range: No NormalsOSMOLALITY, [id number] 15:05:00 Test Item Value Reference Range Comments OSMOLALITY URINE (BEAKER) (test knwj=143) 234 mOsm/kg 40-1,400 POCT-GLUCOSE [id number] 13:14:00 Test Item Value Reference Range Comments POC-GLUCOSE METER (BEAKER) 129 mg/dL 70-110 TESTED AT [address] (test unmb=9613) [place] [address] [id number] 10:06:00 Test Item Value Reference Range Comments SODIUM (BEAKER) (test qbws=860) 120 meq/L 136-145 POTASSIUM (BEAKER) (test jlpn=247) 4.6 meq/L 3.5-5.1 CHLORIDE (BEAKER) (test fqyk=446) 93 meq/L 98-107 CO2 (BEAKER) (test damt=768) 23 meq/L 22-29 Call [id number] 09:01:00 Test Item Value Reference Range Comments POC-GLUCOSE METER (BEAKER) 97 mg/dL 70-110 TESTED AT [facility] [address] (test cvvv=6223) [facility] [address] COMPREHENSIVE METABOLIC [id number] 08:40:00 Test Item Value Reference Range Comments TOTAL PROTEIN (BEAKER) 5.2 gm/dL 6.0-8.3 (test uklu=811) ALBUMIN (BEAKER) (test 3.7 g/dL 3.5-5.0 hibv=6030) ALKALINE PHOSPHATASE 104 U/L 40-150 (BEAKER) (test exjl=969) BILIRUBIN TOTAL (BEAKER) 3.3 mg/dL 0.2-1.2 (test dtfi=348) SODIUM (BEAKER) (test 120 meq/L 136-145 ehwg=457) POTASSIUM (BEAKER) (test 4.8 meq/L 3.5-5.1 eeqe=739) CHLORIDE (BEAKER) (test 93 meq/L 98-107 rstr=376) CO2 (BEAKER) (test 20 meq/L 22-29 lynv=260) BLOOD UREA NITROGEN 31 mg/dL 7-21 (BEAKER) (test rqka=172) CREATININE (BEAKER) (test 1.72 mg/dL 0.57-1.25 tuiy=144) GLUCOSE RANDOM (BEAKER) 99 mg/dL 70-105 (test eypg=106) CALCIUM (BEAKER) (test 8.9 mg/dL 8.4-10.2 jtsa=114) AST (SGOT) (BEAKER) (test 16 U/L 5-34 gwwl=142) ALT (SGPT) (BEAKER) (test < U/L 6-55 dnaz=846) EGFR (BEAKER) (test 42 mL/min/1.73 sq m ESTIMATED GFR IS NOT fkjy=0060) ACCURATE CREATININE CLEARANCE IN PREDICTING GLOMERULAR FILTRATION RATE. ESTIMATED GFR IS NOT APPLICABLE FOR DIALYSIS PATIENTS. Specimen slightly [id number] 08:14:00 Test Item Value Reference Range Comments PHOSPHORUS (BEAKER) (test iech=377) 3.8 mg/dL 2.3-4.7 [id number] 08:14:00 Test Item Value Reference Range Comments MAGNESIUM (BEAKER) (test wpkc=131) 2.1 mg/dL 1.6-2.6 CALCIUM, [id number] 06:56:00 Test Item Value Reference Range Comments CALCIUM IONIZED (BEAKER) (test nwji=000) 1.12 mmol/L 1.12-1.27 PH, BLOOD (BEAKER) (test hmqo=6788) 7.36 CBC W/PLT COUNT & AUTO [id number] 06:38:00 Test Item Value Reference Range Comments WHITE BLOOD CELL COUNT (BEAKER) (test gufw=862) 4.9 K/ L 3.5-10.5 RED BLOOD CELL COUNT (BEAKER) (test ucyd=474) 2.69 M/ L 4.63-6.08 HEMOGLOBIN (BEAKER) (test gkgr=248) 8.3 GM/DL 13.7-17.5 HEMATOCRIT (BEAKER) (test ecpd=642) 24.8 % 40.1-51.0 MEAN CORPUSCULAR VOLUME (BEAKER) (test aadn=987) 92.2 fL 79.0-92.2 MEAN CORPUSCULAR HEMOGLOBIN (BEAKER) (test 30.9 pg 25.7-32.2 pbay=321) MEAN CORPUSCULAR HEMOGLOBIN CONC (BEAKER) (test 33.5 GM/DL 32.3-36.5 ayos=213) RED CELL DISTRIBUTION WIDTH (BEAKER) (test 14.8 % 11.6-14.4 fwep=419) PLATELET COUNT (BEAKER) (test wbsl=126) 65 K/CU MM 150-450 MEAN PLATELET VOLUME (BEAKER) (test sikj=670) 9.1 fL 9.4-12.4 NUCLEATED RED BLOOD CELLS (BEAKER) (test 0 /100 WBC 0-0 vzrx=765) NEUTROPHILS RELATIVE PERCENT (BEAKER) (test 67 % ihwg=477) LYMPHOCYTES RELATIVE PERCENT (BEAKER) (test 10 % kxuq=347) MONOCYTES RELATIVE PERCENT (BEAKER) (test 17 % rmgn=530) EOSINOPHILS RELATIVE PERCENT (BEAKER) (test 5 % ehjw=727) BASOPHILS RELATIVE PERCENT (BEAKER) (test 0 % jvmx=461) NEUTROPHILS ABSOLUTE COUNT (BEAKER) (test 3.32 K/ L 1.78-5.38 lxfh=610) LYMPHOCYTES ABSOLUTE COUNT (BEAKER) (test 0.51 K/ L 1.32-3.57 ppjw=808) MONOCYTES ABSOLUTE COUNT (BEAKER) (test uoms=051) 0.83 K/ L 0.30-0.82 EOSINOPHILS ABSOLUTE COUNT (BEAKER) (test 0.23 K/ L 0.04-0.54 iuhd=628) BASOPHILS ABSOLUTE COUNT (BEAKER) (test wndk=944) 0.02 K/ L 0.01-0.08 IMMATURE GRANULOCYTES-RELATIVE PERCENT (BEAKER) 1 % 0-1 (test jdra=0606) [id number] 06:35:00 Test Item Value Reference Range Comments PARTIAL THROMBOPLASTIN TIME (BEAKER) (test 52.6 seconds 22.5-36.0 qscl=401) PROTHROMBIN [id number] 06:34:00 Test Item Value Reference Range Comments PROTIME (BEAKER) (test avnf=979) 21.6 seconds 11.7-14.7 INR (BEAKER) (test mowl=807) 1.9 <=5.9 RECOMMENDED COUMADIN/WARFARIN INR THERAPY RANGESSTANDARD DOSE: 2.0 - 3.0 Includes: PROPHYLAXIS forvenous thrombosis, systemic embolization; TREATMENT for venous thrombosis and/or pulmonary embolus.HIGH RISK: Target INR is 2.5-3.5 for patients with mechanical heart valves.POCT-GLUCOSE [id number] 22:00:00 Test Item Value Reference Range Comments POC-GLUCOSE METER (BEAKER) 114 mg/dL 70-110 TESTED AT [address] (test xhmy=0480) [place] [address] POCT-GLUCOSE [id number] 17:57:00 Test Item Value Reference Range Comments POC-GLUCOSE METER (BEAKER) 139 mg/dL 70-110 TESTED AT [address] (test pcjr=8585) [place] [address] POCT-GLUCOSE [id number] 11:57:00 Test Item Value Reference Range Comments POC-GLUCOSE METER (BEAKER) 146 mg/dL 70-110 TESTED AT [address] (test zyev=8629) [place] [address] POCT-GLUCOSE [id number] 09:16:00 Test Item Value Reference Range Comments POC-GLUCOSE METER (BEAKER) 109 mg/dL 70-110 TESTED AT [address] (test jcra=1169) [place] [address] COMPREHENSIVE METABOLIC [id number] 05:53:00 Test Item Value Reference Range Comments TOTAL PROTEIN (BEAKER) 5.2 gm/dL 6.0-8.3 (test uhut=400) ALBUMIN (BEAKER) (test 3.8 g/dL 3.5-5.0 euxg=1169) ALKALINE PHOSPHATASE 110 U/L 40-150 (BEAKER) (test xvme=388) BILIRUBIN TOTAL (BEAKER) 4.5 mg/dL 0.2-1.2 (test xvjb=691) SODIUM (BEAKER) (test 124 meq/L 136-145 mkto=882) POTASSIUM (BEAKER) (test 4.5 meq/L 3.5-5.1 eroq=974) CHLORIDE (BEAKER) (test 95 meq/L 98-107 czdo=770) CO2 (BEAKER) (test 22 meq/L 22-29 nqqb=577) BLOOD UREA NITROGEN 30 mg/dL 7-21 (BEAKER) (test eeks=042) CREATININE (BEAKER) (test 1.67 mg/dL 0.57-1.25 vpwi=856) GLUCOSE RANDOM (BEAKER) 99 mg/dL 70-105 (test wtfa=909) CALCIUM (BEAKER) (test 9.0 mg/dL 8.4-10.2 fxuk=492) AST (SGOT) (BEAKER) (test 16 U/L 5-34 qrsh=125) ALT (SGPT) (BEAKER) (test < U/L 6-55 jyse=796) EGFR (BEAKER) (test 43 mL/min/1.73 sq m ESTIMATED GFR IS NOT cbol=2064) ACCURATE CREATININE CLEARANCE IN PREDICTING GLOMERULAR FILTRATION RATE. ESTIMATED GFR IS NOT APPLICABLE FOR DIALYSIS PATIENTS. Specimen slightly [id number] 05:50:00 Test Item Value Reference Range Comments PHOSPHORUS (BEAKER) (test vcxw=005) 3.7 mg/dL 2.3-4.7 [id number] 05:50:00 Test Item Value Reference Range Comments MAGNESIUM (BEAKER) (test tdav=397) 2.1 mg/dL 1.6-2.6 CBC W/PLT COUNT & AUTO [id number] 05:28:00 Test Item Value Reference Range Comments WHITE BLOOD CELL COUNT (BEAKER) (test ekbn=864) 4.0 K/ L 3.5-10.5 RED BLOOD CELL COUNT (BEAKER) (test grqg=346) 2.80 M/ L 4.63-6.08 HEMOGLOBIN (BEAKER) (test ohcs=202) 8.7 GM/DL 13.7-17.5 HEMATOCRIT (BEAKER) (test phsv=212) 25.8 % 40.1-51.0 MEAN CORPUSCULAR VOLUME (BEAKER) (test sdbi=063) 92.1 fL 79.0-92.2 MEAN CORPUSCULAR HEMOGLOBIN (BEAKER) (test 31.1 pg 25.7-32.2 hdgj=353) MEAN CORPUSCULAR HEMOGLOBIN CONC (BEAKER) (test 33.7 GM/DL 32.3-36.5 myig=765) RED CELL DISTRIBUTION WIDTH (BEAKER) (test 14.7 % 11.6-14.4 iagt=081) PLATELET COUNT (BEAKER) (test qjso=882) 42 K/CU MM 150-450 MEAN PLATELET VOLUME (BEAKER) (test xnjg=382) 9.8 fL 9.4-12.4 NUCLEATED RED BLOOD CELLS (BEAKER) (test 0 /100 WBC 0-0 emhr=890) NEUTROPHILS RELATIVE PERCENT (BEAKER) (test 59 % ascf=482) LYMPHOCYTES RELATIVE PERCENT (BEAKER) (test 15 % bkhx=195) MONOCYTES RELATIVE PERCENT (BEAKER) (test 20 % qsou=124) EOSINOPHILS RELATIVE PERCENT (BEAKER) (test 5 % bnyx=807) BASOPHILS RELATIVE PERCENT (BEAKER) (test 1 % qqeg=026) NEUTROPHILS ABSOLUTE COUNT (BEAKER) (test 2.37 K/ L 1.78-5.38 nxbc=958) LYMPHOCYTES ABSOLUTE COUNT (BEAKER) (test 0.58 K/ L 1.32-3.57 hxlq=922) MONOCYTES ABSOLUTE COUNT (BEAKER) (test kucv=404) 0.78 K/ L 0.30-0.82 EOSINOPHILS ABSOLUTE COUNT (BEAKER) (test 0.21 K/ L 0.04-0.54 rhtf=795) BASOPHILS ABSOLUTE COUNT (BEAKER) (test vksh=148) 0.02 K/ L 0.01-0.08 IMMATURE GRANULOCYTES-RELATIVE PERCENT (BEAKER) 1 % 0-1 (test dopq=9357) PROTHROMBIN [id number] 05:26:00 Test Item Value Reference Range Comments PROTIME (BEAKER) (test ybsr=022) 23.3 seconds 11.7-14.7 INR (BEAKER) (test vsjw=760) 2.1 <=5.9 RECOMMENDED COUMADIN/WARFARIN INR THERAPY RANGESSTANDARD DOSE: 2.0 - 3.0 Includes: PROPHYLAXIS forvenous thrombosis, systemic embolization; TREATMENT for venous thrombosis and/or pulmonary embolus.HIGH RISK: Target INR is 2.5-3.5 for patients with mechanical heart valves.CALCIUM, [id number] 05:21:00 Test Item Value Reference Range Comments CALCIUM IONIZED (BEAKER) (test cgdc=319) 1.11 mmol/L 1.12-1.27 PH, BLOOD (BEAKER) (test aeoj=9961) 7.40 POCT-GLUCOSE [id number] 21:47:00 Test Item Value Reference Range Comments POC-GLUCOSE METER (BEAKER) 129 mg/dL 70-110 TESTED AT [address] (test ijlj=5171) [facility] [address] RAD, CHEST, 1 VIEW, NON [id number] 17:18:00Reason for exam:->sobFINAL REPORT Comparison: 08/26/2018 TECHNIQUE: Single view of the chest FINDINGS: Lung volumes are low. Bibasilar densities may represent atelectasis. Otherwise lungs are clear. Cardiac silhouette is within normal limits. Soft tissues and bones are unremarkable. Signed: Rick Guerra MDReport Verified Date/Time: 09/02/2018 17:18:49 Reading Location: [facility] Mammo Reading Room CBC W/ PLT COUNT & AUTO [id number] 17:16:00 Test Item Value Reference Range Comments WHITE BLOOD CELL COUNT (BEAKER) (test ljky=944) 3.8 K/ L 3.5-10.5 RED BLOOD CELL COUNT (BEAKER) (test yrym=372) 2.37 M/ L 4.63-6.08 HEMOGLOBIN (BEAKER) (test idqv=388) 7.4 GM/DL 13.7-17.5 HEMATOCRIT (BEAKER) (test ezzf=208) 21.8 % 40.1-51.0 MEAN CORPUSCULAR VOLUME (BEAKER) (test tgdm=672) 92.0 fL 79.0-92.2 MEAN CORPUSCULAR HEMOGLOBIN (BEAKER) (test 31.2 pg 25.7-32.2 gdae=199) MEAN CORPUSCULAR HEMOGLOBIN CONC (BEAKER) (test 33.9 GM/DL 32.3-36.5 dorw=134) RED CELL DISTRIBUTION WIDTH (BEAKER) (test 14.9 % 11.6-14.4 apvn=176) PLATELET COUNT (BEAKER) (test qjss=114) 41 K/CU MM 150-450 MEAN PLATELET VOLUME (BEAKER) (test eqoe=115) 8.8 fL 9.4-12.4 NUCLEATED RED BLOOD CELLS (BEAKER) (test 0 /100 WBC 0-0 nftw=504) NEUTROPHILS RELATIVE PERCENT (BEAKER) (test 62 % fznm=884) LYMPHOCYTES RELATIVE PERCENT (BEAKER) (test 14 % zeng=766) MONOCYTES RELATIVE PERCENT (BEAKER) (test 18 % wqsq=344) EOSINOPHILS RELATIVE PERCENT (BEAKER) (test 4 % rvqr=719) BASOPHILS RELATIVE PERCENT (BEAKER) (test 0 % zpur=888) NEUTROPHILS ABSOLUTE COUNT (BEAKER) (test 2.39 K/ L 1.78-5.38 exxv=545) LYMPHOCYTES ABSOLUTE COUNT (BEAKER) (test 0.55 K/ L 1.32-3.57 evyp=253) MONOCYTES ABSOLUTE COUNT (BEAKER) (test lkxx=767) 0.69 K/ L 0.30-0.82 EOSINOPHILS ABSOLUTE COUNT (BEAKER) (test 0.17 K/ L 0.04-0.54 nzyl=376) BASOPHILS ABSOLUTE COUNT (BEAKER) (test uwpl=656) 0.01 K/ L 0.01-0.08 IMMATURE GRANULOCYTES-RELATIVE PERCENT (BEAKER) 1 % 0-1 (test ogsa=0327) POCT-BLOOD GASES, [id number] 16:58:00 Test Item Value Reference Range Comments TEMP, CELSIUS-POC (BEAKER) 37.0 (test rozv=0430) FIO2-POC (BEAKER) (test TESTED AT [facility] [address] [facility] llub=1674) [place] [address] PH, ARTERIAL-POC (BEAKER) 7.412 7.350-7.450 (test jntq=6630) PCO2, ARTERIAL-POC (BEAKER) 35.5 mm Hg 35.0-45.0 (test xeyp=7487) PO2, ARTERIAL-POC (BEAKER) 69.0 mm Hg 80.0-90.0 (test hnlu=8834) SO2, ARTERIAL-POC (BEAKER) 94.0 % 96.0-97.0 (test kaou=5717) HCO3, ARTERIAL-POC (BEAKER) 22.6 meq/L 21.0-29.0 (test iqqq=3984) BASE EXCESS, ARTERIAL-POC -2.0 meq/L -2.0-3.0 (BEAKER) (test lvnt=0037) [id number] 16:58:00 Test Item Value Reference Range Comments POC-SODIUM (BEAKER) (test 125 meq/L 135-148 TESTED AT [address] yuhg=7332) [place] [address] [id number] 16:58:00 Test Item Value Reference Range Comments POC-POTASSIUM (BEAKER) (test 4.2 meq/L 3.6-5.5 TESTED AT [address] sxcc=4098) [place] [address] [id number] 16:58:00 Test Item Value Reference Range Comments POC-GLUCOSE (BEAKER) (test 128 mg/dL 70-110 TESTED AT [address] kfhz=0114) [place] [address] POCT-CALCIUM [id number] 16:58:00 Test Item Value Reference Range Comments POC-CALCIUM IONIZED (BEAKER) 1.24 mmol/L 1.12-1.27 TESTED AT [address] (test eizp=6243) [place] [address] [id number] 16:58:00 Test Item Value Reference Range Comments POC-HEMATOCRIT (BEAKER) (test 21 % 40-50 TESTED AT [address] tmhu=4074) [place] [address] [id number] 16:58:00 Test Item Value Reference Range Comments POC-HEMOGLOBIN (BEAKER) 7.1 g/dL 13.0-16.8 TESTED AT [address] (test iamv=2994) [facility] [id number] AT [address] [address] POCT-LACTIC ACID, [id number] 16:58:00 Test Item Value Reference Range Comments POC-LACTIC ACID, ARTERIAL 1.0 mmol/L 0.4-1.3 TESTED AT [address] (BEAKER) (test yzat=6278) [facility] [address] POCT-GLUCOSE [id number] 11:43:00 Test Item Value Reference Range Comments POC-GLUCOSE METER (BEAKER) 169 mg/dL 70-110 TESTED AT [address] (test xwof=6214) [facility] [address] POCT-GLUCOSE [id number] 08:23:00 Test Item Value Reference Range Comments POC-GLUCOSE METER (BEAKER) 128 mg/dL 70-110 TESTED AT [address] (test wvlf=3682) [facility] [address] [id number] 05:16:00 Test Item Value Reference Range Comments PHOSPHORUS (BEAKER) (test icrc=865) 3.8 mg/dL 2.3-4.7 [id number] 05:16:00 Test Item Value Reference Range Comments MAGNESIUM (BEAKER) (test arbv=881) 2.0 mg/dL 1.6-2.6 COMPREHENSIVE METABOLIC [id number] 05:16:00 Test Item Value Reference Range Comments TOTAL PROTEIN (BEAKER) 5.0 gm/dL 6.0-8.3 (test xcnx=355) ALBUMIN (BEAKER) (test 3.5 g/dL 3.5-5.0 jtgw=3832) ALKALINE PHOSPHATASE 124 U/L 40-150 (BEAKER) (test cgqi=565) BILIRUBIN TOTAL (BEAKER) 2.2 mg/dL 0.2-1.2 (test xbaa=506) SODIUM (BEAKER) (test 125 meq/L 136-145 bmoo=624) POTASSIUM (BEAKER) (test 4.4 meq/L 3.5-5.1 yiro=077) CHLORIDE (BEAKER) (test 96 meq/L 98-107 npdl=872) CO2 (BEAKER) (test 23 meq/L 22-29 gndw=722) BLOOD UREA NITROGEN 27 mg/dL 7-21 (BEAKER) (test jfhl=880) CREATININE (BEAKER) (test 1.74 mg/dL 0.57-1.25 wpek=020) GLUCOSE RANDOM (BEAKER) 112 mg/dL 70-105 (test qbry=603) CALCIUM (BEAKER) (test 8.8 mg/dL 8.4-10.2 etuc=825) AST (SGOT) (BEAKER) (test 17 U/L 5-34 ocwu=884) ALT (SGPT) (BEAKER) (test 7 U/L 6-55 oozi=957) EGFR (BEAKER) (test 41 mL/min/1.73 sq m ESTIMATED GFR IS NOT aahi=7676) ACCURATE CREATININE CLEARANCE IN PREDICTING GLOMERULAR FILTRATION RATE. ESTIMATED GFR IS NOT APPLICABLE FOR DIALYSIS PATIENTS. CALCIUM, [id number] 05:13:00 Test Item Value Reference Range Comments CALCIUM IONIZED (BEAKER) (test rcuo=226) 1.10 mmol/L 1.12-1.27 PH, BLOOD (BEAKER) (test zmlu=3471) 7.44 CBC W/PLT COUNT & AUTO [id number] 05:02:00 Test Item Value Reference Range Comments WHITE BLOOD CELL COUNT (BEAKER) (test vlkz=153) 3.2 K/ L 3.5-10.5 RED BLOOD CELL COUNT (BEAKER) (test invo=033) 2.23 M/ L 4.63-6.08 HEMOGLOBIN (BEAKER) (test hmvx=334) 6.9 GM/DL 13.7-17.5 HEMATOCRIT (BEAKER) (test ghxi=277) 20.8 % 40.1-51.0 MEAN CORPUSCULAR VOLUME (BEAKER) (test tftd=893) 93.3 fL 79.0-92.2 MEAN CORPUSCULAR HEMOGLOBIN (BEAKER) (test 30.9 pg 25.7-32.2 ftje=520) MEAN CORPUSCULAR HEMOGLOBIN CONC (BEAKER) (test 33.2 GM/DL 32.3-36.5 ftcm=471) RED CELL DISTRIBUTION WIDTH (BEAKER) (test 14.6 % 11.6-14.4 cjzn=461) PLATELET COUNT (BEAKER) (test pqqx=780) 43 K/CU MM 150-450 MEAN PLATELET VOLUME (BEAKER) (test yxtb=934) 9.3 fL 9.4-12.4 NUCLEATED RED BLOOD CELLS (BEAKER) (test 0 /100 WBC 0-0 sqqx=718) NEUTROPHILS RELATIVE PERCENT (BEAKER) (test 58 % wacn=172) LYMPHOCYTES RELATIVE PERCENT (BEAKER) (test 17 % ggsf=531) MONOCYTES RELATIVE PERCENT (BEAKER) (test 18 % vcxo=136) EOSINOPHILS RELATIVE PERCENT (BEAKER) (test 5 % bajr=475) BASOPHILS RELATIVE PERCENT (BEAKER) (test 1 % yhty=855) NEUTROPHILS ABSOLUTE COUNT (BEAKER) (test 1.84 K/ L 1.78-5.38 cqrp=388) LYMPHOCYTES ABSOLUTE COUNT (BEAKER) (test 0.54 K/ L 1.32-3.57 cwoy=069) MONOCYTES ABSOLUTE COUNT (BEAKER) (test qnlh=162) 0.56 K/ L 0.30-0.82 EOSINOPHILS ABSOLUTE COUNT (BEAKER) (test 0.15 K/ L 0.04-0.54 wkjn=021) BASOPHILS ABSOLUTE COUNT (BEAKER) (test vpzu=557) 0.02 K/ L 0.01-0.08 IMMATURE GRANULOCYTES-RELATIVE PERCENT (BEAKER) 1 % 0-1 (test ofor=1627) PROTHROMBIN [id number] 05:00:00 Test Item Value Reference Range Comments PROTIME (BEAKER) (test uuch=714) 22.7 seconds 11.7-14.7 INR (BEAKER) (test bzsk=062) 2.0 <=5.9 RECOMMENDED COUMADIN/WARFARIN INR THERAPY RANGESSTANDARD DOSE: 2.0 - 3.0 Includes: PROPHYLAXIS forvenous thrombosis, systemic embolization; TREATMENT for venous thrombosis and/or pulmonary embolus.HIGH RISK: Target INR is 2.5-3.5 for patients with mechanical heart valves.POCT-GLUCOSE [id number] 22:18:00 Test Item Value Reference Range Comments POC-GLUCOSE METER (BEAKER) 194 mg/dL 70-110 TESTED AT [address] (test esrj=8875) [place] [address] POCT-GLUCOSE [id number] 17:33:00 Test Item Value Reference Range Comments POC-GLUCOSE METER (BEAKER) 160 mg/dL 70-110 TESTED AT [address] (test tibz=1239) [place] [id number] POCT-GLUCOSE [id number] 11:56:00 Test Item Value Reference Range Comments POC-GLUCOSE METER (BEAKER) 151 mg/dL 70-110 TESTED AT [facility] [address] [facility] (test kprf=2194) [facility] [address] URINALYSIS W/ [id number] 09:52:00 Test Item Value Reference Range Comments COLOR (BEAKER) (test emmh=099) Yellow CLARITY (BEAKER) (test asdw=517) Clear SPECIFIC GRAVITY UA (BEAKER) (test 1.014 1.001-1.035 lwcw=758) PH UA (BEAKER) (test tysq=684) 5.5 5.0-8.0 PROTEIN UA (BEAKER) (test xpbu=703) Negative Negative GLUCOSE UA (BEAKER) (test fcon=750) Negative Negative KETONES UA (BEAKER) (test dnnb=412) Negative Negative BILIRUBIN UA (BEAKER) (test gmla=527) Negative Negative BLOOD UA (BEAKER) (test kjsm=443) Negative Negative NITRITE UA (BEAKER) (test lmsz=112) Negative Negative LEUKOCYTE ESTERASE UA (BEAKER) (test Negative Negative lnzp=197) UROBILINOGEN UA (BEAKER) (test cbhx=673) 0.2 mg/dL 0.2-1.0 RBC UA (BEAKER) (test ryxd=188) 1 /HPF WBC UA (BEAKER) (test klpl=581) 4 /HPF BACTERIA (BEAKER) (test dyaa=341) Rare MUCUS (BEAKER) (test eatb=4037) Rare HYALINE CASTS (BEAKER) (test ralb=902) 19 /LPF YEAST (BEAKER) (test qcnj=1763) Rare SOURCE(BEAKER) (test gpmb=1655) Urine, Clean Catch SODIUM, RANDOM [id number] 09:09:00 Test Item Value Reference Range Comments SODIUM URINE (BEAKER) (test vtfm=957) < meq/L Reference Range: No NormalsCREATININE, RANDOM [id number] 09:04:00 Test Item Value Reference Range Comments CREATININE URINE (BEAKER) (test xmbd=852) 149.6 mg/dL Reference Range: No NormalsPOCT-GLUCOSE [id number] 08:12:00 Test Item Value Reference Range Comments POC-GLUCOSE METER (BEAKER) 106 mg/dL 70-110 TESTED AT [facility] [address] (test fzrg=5383) [place] [address] CBC W/PLT COUNT & AUTO [id number] 06:56:00 Test Item Value Reference Range Comments WHITE BLOOD CELL COUNT (BEAKER) (test rhdo=442) 4.5 K/ L 3.5-10.5 RED BLOOD CELL COUNT (BEAKER) (test eefn=840) 2.22 M/ L 4.63-6.08 HEMOGLOBIN (BEAKER) (test lmei=740) 7.0 GM/DL 13.7-17.5 HEMATOCRIT (BEAKER) (test xmsg=311) 20.6 % 40.1-51.0 MEAN CORPUSCULAR VOLUME (BEAKER) (test okwb=757) 92.8 fL 79.0-92.2 MEAN CORPUSCULAR HEMOGLOBIN (BEAKER) (test 31.5 pg 25.7-32.2 brlg=234) MEAN CORPUSCULAR HEMOGLOBIN CONC (BEAKER) (test 34.0 GM/DL 32.3-36.5 wgwz=996) RED CELL DISTRIBUTION WIDTH (BEAKER) (test 14.7 % 11.6-14.4 ikvu=170) PLATELET COUNT (BEAKER) (test mcwd=713) 44 K/CU MM 150-450 MEAN PLATELET VOLUME (BEAKER) (test zwja=259) 9.0 fL 9.4-12.4 NUCLEATED RED BLOOD CELLS (BEAKER) (test 0 /100 WBC 0-0 ehtn=593) NEUTROPHILS RELATIVE PERCENT (BEAKER) (test 69 % daaa=559) LYMPHOCYTES RELATIVE PERCENT (BEAKER) (test 12 % kiyq=656) MONOCYTES RELATIVE PERCENT (BEAKER) (test 14 % dnxw=236) EOSINOPHILS RELATIVE PERCENT (BEAKER) (test 4 % qhav=723) BASOPHILS RELATIVE PERCENT (BEAKER) (test 0 % iesa=574) NEUTROPHILS ABSOLUTE COUNT (BEAKER) (test 3.12 K/ L 1.78-5.38 azet=282) LYMPHOCYTES ABSOLUTE COUNT (BEAKER) (test 0.55 K/ L 1.32-3.57 hxkw=482) MONOCYTES ABSOLUTE COUNT (BEAKER) (test wevg=798) 0.62 K/ L 0.30-0.82 EOSINOPHILS ABSOLUTE COUNT (BEAKER) (test 0.18 K/ L 0.04-0.54 ints=079) BASOPHILS ABSOLUTE COUNT (BEAKER) (test ddfr=576) 0.00 K/ L 0.01-0.08 IMMATURE GRANULOCYTES-RELATIVE PERCENT (BEAKER) 1 % 0-1 (test mpce=8773) [id number] 06:41:00 Test Item Value Reference Range Comments PHOSPHORUS (BEAKER) (test nvxu=064) 2.7 mg/dL 2.3-4.7 [id number] 06:41:00 Test Item Value Reference Range Comments MAGNESIUM (BEAKER) (test eksn=912) 2.0 mg/dL 1.6-2.6 COMPREHENSIVE METABOLIC [id number] 06:41:00 Test Item Value Reference Range Comments TOTAL PROTEIN (BEAKER) 4.9 gm/dL 6.0-8.3 (test ufzf=930) ALBUMIN (BEAKER) (test 3.1 g/dL 3.5-5.0 eaac=5862) ALKALINE PHOSPHATASE 148 U/L 40-150 (BEAKER) (test khmq=734) BILIRUBIN TOTAL (BEAKER) 1.9 mg/dL 0.2-1.2 (test irtp=705) SODIUM (BEAKER) (test 123 meq/L 136-145 mjes=663) POTASSIUM (BEAKER) (test 3.9 meq/L 3.5-5.1 ofjy=312) CHLORIDE (BEAKER) (test 94 meq/L 98-107 bgla=614) CO2 (BEAKER) (test 22 meq/L 22-29 orvc=615) BLOOD UREA NITROGEN 24 mg/dL 7-21 (BEAKER) (test lnia=320) CREATININE (BEAKER) (test 1.55 mg/dL 0.57-1.25 ksnj=877) GLUCOSE RANDOM (BEAKER) 95 mg/dL 70-105 (test sruj=721) CALCIUM (BEAKER) (test 8.5 mg/dL 8.4-10.2 zirl=662) AST (SGOT) (BEAKER) (test 18 U/L 5-34 usqt=348) ALT (SGPT) (BEAKER) (test 10 U/L 6-55 ytpr=924) EGFR (BEAKER) (test 47 mL/min/1.73 sq m ESTIMATED GFR IS NOT nezb=7547) ACCURATE CREATININE CLEARANCE IN PREDICTING GLOMERULAR FILTRATION RATE. ESTIMATED GFR IS NOT APPLICABLE FOR DIALYSIS PATIENTS. BILIRUBIN, [id number] 06:41:00 Test Item Value Reference Range Comments BILIRUBIN DIRECT (BEAKER) (test kbkq=337) 1.3 mg/dL 0.1-0.5 PROTHROMBIN [id number] 06:26:00 Test Item Value Reference Range Comments PROTIME (BEAKER) (test fehc=929) 23.3 seconds 11.7-14.7 INR (BEAKER) (test zmlb=916) 2.1 <=5.9 RECOMMENDED COUMADIN/WARFARIN INR THERAPY RANGESSTANDARD DOSE: 2.0 - 3.0 Includes: PROPHYLAXIS forvenous thrombosis, systemic embolization; TREATMENT for venous thrombosis and/or pulmonary embolus.HIGH RISK: Target INR is 2.5-3.5 for patients with mechanical heart valves.POCT-GLUCOSE [id number] 22:17:00 Test Item Value Reference Range Comments POC-GLUCOSE METER (BEAKER) 136 mg/dL 70-110 TESTED AT [facility] [address] [facility] (test oyiv=4293) [place] [address] POCT-GLUCOSE [id number] 18:08:00 Test Item Value Reference Range Comments POC-GLUCOSE METER (BEAKER) 126 mg/dL 70-110 TESTED AT [address] (test ywsc=2440) [place] [address] U/S, [id number] 17:47:00Reason for exam:->ascitesFINAL REPORT Indication: Ascites. Technique: Ultrasound guided paracentesis. Findings:Preliminary ultrasound confirms ascites. A safe window was identified in the left lower quadrant. The procedure was explained to the patient and informed consent was signed. The skin was markedand prepped in standard sterile fashion. Lidocaine was used for local anesthesia. A 5 Burmese needle catheter system was advanced into the peritoneal space. 5500 cc slightly cloudy yellow fluid was taken off. Patient tolerated the procedure well. Impression: Ultrasound guided paracentesis. Signed: Aristeo Xiongeport Verified Date/Time: 08/31/2018 17:47:54 Reading Location: [address] Ultrasound Reading Room POCT-GLUCOSE [id number] 11:52:00 Test Item Value Reference Range Comments POC-GLUCOSE METER (BEAKER) 151 mg/dL 70-110 TESTED AT [facility] [address] [facility] (test phmz=6433) [facility] [address] POCT-GLUCOSE [id number] 08:19:00 Test Item Value Reference Range Comments POC-GLUCOSE METER (BEAKER) 129 mg/dL 70-110 TESTED AT [address] (test lkcs=9708) [facility] [address] [id number] 05:12:00 Test Item Value Reference Range Comments PHOSPHORUS (BEAKER) (test naxp=042) 2.9 mg/dL 2.3-4.7 [id number] 05:12:00 Test Item Value Reference Range Comments MAGNESIUM (BEAKER) (test psxy=841) 2.0 mg/dL 1.6-2.6 COMPREHENSIVE METABOLIC [id number] 05:12:00 Test Item Value Reference Range Comments TOTAL PROTEIN (BEAKER) 5.4 gm/dL 6.0-8.3 (test ctnv=098) ALBUMIN (BEAKER) (test 3.2 g/dL 3.5-5.0 yetk=5912) ALKALINE PHOSPHATASE 159 U/L 40-150 (BEAKER) (test nicm=215) BILIRUBIN TOTAL (BEAKER) 1.8 mg/dL 0.2-1.2 (test amvs=149) SODIUM (BEAKER) (test 125 meq/L 136-145 qfth=528) POTASSIUM (BEAKER) (test 4.3 meq/L 3.5-5.1 spgu=366) CHLORIDE (BEAKER) (test 97 meq/L 98-107 qpph=545) CO2 (BEAKER) (test 22 meq/L 22-29 dgsk=395) BLOOD UREA NITROGEN 21 mg/dL 7-21 (BEAKER) (test ljah=906) CREATININE (BEAKER) (test 1.34 mg/dL 0.57-1.25 vtpq=422) GLUCOSE RANDOM (BEAKER) 113 mg/dL 70-105 (test ehpi=172) CALCIUM (BEAKER) (test 8.8 mg/dL 8.4-10.2 kbob=129) AST (SGOT) (BEAKER) (test 22 U/L 5-34 ubld=908) ALT (SGPT) (BEAKER) (test 11 U/L 6-55 ghwx=199) EGFR (BEAKER) (test 56 mL/min/1.73 sq m ESTIMATED GFR IS NOT udav=4003) ACCURATE CREATININE CLEARANCE IN PREDICTING GLOMERULAR FILTRATION RATE. ESTIMATED GFR IS NOT APPLICABLE FOR DIALYSIS PATIENTS. BILIRUBIN, [id number] 05:12:00 Test Item Value Reference Range Comments BILIRUBIN DIRECT (BEAKER) (test gsuz=554) 1.2 mg/dL 0.1-0.5 PROTHROMBIN [id number] 04:48:00 Test Item Value Reference Range Comments PROTIME (BEAKER) (test jfur=002) 22.3 seconds 11.7-14.7 INR (BEAKER) (test yehh=086) 2.0 <=5.9 RECOMMENDED COUMADIN/WARFARIN INR THERAPY RANGESSTANDARD DOSE: 2.0 - 3.0 Includes: PROPHYLAXIS forvenous thrombosis, systemic embolization; TREATMENT for venous thrombosis and/or pulmonary embolus.HIGH RISK: Target INR is 2.5-3.5 for patients with mechanical heart valves.CBC W/PLT COUNT & AUTO [id number] 04:33:00 Test Item Value Reference Range Comments WHITE BLOOD CELL COUNT (BEAKER) (test xtwl=157) 5.5 K/ L 3.5-10.5 RED BLOOD CELL COUNT (BEAKER) (test fcrl=598) 2.58 M/ L 4.63-6.08 HEMOGLOBIN (BEAKER) (test fzrp=211) 7.9 GM/DL 13.7-17.5 HEMATOCRIT (BEAKER) (test ahus=938) 24.3 % 40.1-51.0 MEAN CORPUSCULAR VOLUME (BEAKER) (test cyrg=378) 94.2 fL 79.0-92.2 MEAN CORPUSCULAR HEMOGLOBIN (BEAKER) (test 30.6 pg 25.7-32.2 fjzo=118) MEAN CORPUSCULAR HEMOGLOBIN CONC (BEAKER) (test 32.5 GM/DL 32.3-36.5 lxca=587) RED CELL DISTRIBUTION WIDTH (BEAKER) (test 15.0 % 11.6-14.4 obaz=681) PLATELET COUNT (BEAKER) (test bdsg=733) 57 K/CU MM 150-450 MEAN PLATELET VOLUME (BEAKER) (test ktmv=333) 9.2 fL 9.4-12.4 NUCLEATED RED BLOOD CELLS (BEAKER) (test 0 /100 WBC 0-0 aorn=993) NEUTROPHILS RELATIVE PERCENT (BEAKER) (test 70 % qsza=154) LYMPHOCYTES RELATIVE PERCENT (BEAKER) (test 12 % ouer=314) MONOCYTES RELATIVE PERCENT (BEAKER) (test 14 % fypa=826) EOSINOPHILS RELATIVE PERCENT (BEAKER) (test 4 % vukd=122) BASOPHILS RELATIVE PERCENT (BEAKER) (test 0 % oruy=545) NEUTROPHILS ABSOLUTE COUNT (BEAKER) (test 3.85 K/ L 1.78-5.38 lhvu=305) LYMPHOCYTES ABSOLUTE COUNT (BEAKER) (test 0.67 K/ L 1.32-3.57 rdqt=881) MONOCYTES ABSOLUTE COUNT (BEAKER) (test pjfz=401) 0.75 K/ L 0.30-0.82 EOSINOPHILS ABSOLUTE COUNT (BEAKER) (test 0.22 K/ L 0.04-0.54 jzda=434) BASOPHILS ABSOLUTE COUNT (BEAKER) (test dcgj=119) 0.01 K/ L 0.01-0.08 IMMATURE GRANULOCYTES-RELATIVE PERCENT (BEAKER) 1 % 0-1 (test reol=0779) BLOOD [id number] 23:01:00 Test Item Value Reference Range Comments CULTURE (BEAKER) (test peme=9789) No growth in 5 days POCT-GLUCOSE [id number] 22:15:00 Test Item Value Reference Range Comments POC-GLUCOSE METER (BEAKER) 133 mg/dL 70-110 TESTED AT [address] (test ewnb=3135) [facility] [address] POCT-GLUCOSE [id number] 17:42:00 Test Item Value Reference Range Comments POC-GLUCOSE METER (BEAKER) 139 mg/dL 70-110 TESTED AT [address] (test fzyt=7129) [facility] [address] POCT-GLUCOSE [id number] 12:02:00 Test Item Value Reference Range Comments POC-GLUCOSE METER (BEAKER) 152 mg/dL 70-110 TESTED AT [address] (test jkus=1082) [place] [id number] POCT-GLUCOSE [id number] 09:04:00 Test Item Value Reference Range Comments POC-GLUCOSE METER (BEAKER) 130 mg/dL 70-110 TESTED AT [facility] [address] (test eeom=9181) [facility] [address] CALCIUM, [id number] 07:27:00 Test Item Value Reference Range Comments CALCIUM IONIZED (BEAKER) (test zwyv=462) 1.10 mmol/L 1.12-1.27 PH, BLOOD (BEAKER) (test yqwq=0154) 7.42 [id number] 06:46:00 Test Item Value Reference Range Comments PHOSPHORUS (BEAKER) (test wfmf=513) 3.0 mg/dL 2.3-4.7 [id number] 06:46:00 Test Item Value Reference Range Comments MAGNESIUM (BEAKER) (test ztub=960) 2.0 mg/dL 1.6-2.6 COMPREHENSIVE METABOLIC [id number] 06:46:00 Test Item Value Reference Range Comments TOTAL PROTEIN (BEAKER) 4.9 gm/dL 6.0-8.3 (test rmiy=050) ALBUMIN (BEAKER) (test 3.0 g/dL 3.5-5.0 muvf=2116) ALKALINE PHOSPHATASE 145 U/L 40-150 (BEAKER) (test bbox=247) BILIRUBIN TOTAL (BEAKER) 1.9 mg/dL 0.2-1.2 (test kfmo=356) SODIUM (BEAKER) (test 127 meq/L 136-145 mutc=878) POTASSIUM (BEAKER) (test 3.7 meq/L 3.5-5.1 xvbo=287) CHLORIDE (BEAKER) (test 99 meq/L 98-107 twbp=147) CO2 (BEAKER) (test 21 meq/L 22-29 swrl=754) BLOOD UREA NITROGEN 20 mg/dL 7-21 (BEAKER) (test rmwb=444) CREATININE (BEAKER) (test 1.21 mg/dL 0.57-1.25 ipyi=323) GLUCOSE RANDOM (BEAKER) 108 mg/dL 70-105 (test yvrg=087) CALCIUM (BEAKER) (test 8.9 mg/dL 8.4-10.2 awzc=834) AST (SGOT) (BEAKER) (test 22 U/L 5-34 zyxl=650) ALT (SGPT) (BEAKER) (test 9 U/L 6-55 mdst=757) EGFR (BEAKER) (test 63 mL/min/1.73 sq m ESTIMATED GFR IS NOT gavr=0298) ACCURATE CREATININE CLEARANCE IN PREDICTING GLOMERULAR FILTRATION RATE. ESTIMATED GFR IS NOT APPLICABLE FOR DIALYSIS PATIENTS. BASIC METABOLIC [id number] 06:46:00 Test Item Value Reference Range Comments SODIUM (BEAKER) (test 127 meq/L 136-145 qbuk=259) POTASSIUM (BEAKER) (test 3.7 meq/L 3.5-5.1 oxva=249) CHLORIDE (BEAKER) (test 99 meq/L 98-107 jvxs=126) CO2 (BEAKER) (test 21 meq/L 22-29 drnk=264) BLOOD UREA NITROGEN 20 mg/dL 7-21 (BEAKER) (test srer=076) CREATININE (BEAKER) (test 1.21 mg/dL 0.57-1.25 rgfi=147) GLUCOSE RANDOM (BEAKER) 108 mg/dL 70-105 (test yiyh=003) CALCIUM (BEAKER) (test 8.9 mg/dL 8.4-10.2 oeum=990) EGFR (BEAKER) (test 63 mL/min/1.73 sq m ESTIMATED GFR IS NOT ezja=8632) ACCURATE CREATININE CLEARANCE IN PREDICTING GLOMERULAR FILTRATION RATE. ESTIMATED GFR IS NOT APPLICABLE FOR DIALYSIS PATIENTS. BILIRUBIN, [id number] 06:46:00 Test Item Value Reference Range Comments BILIRUBIN DIRECT (BEAKER) (test lgjy=918) 1.2 mg/dL 0.1-0.5 CBC W/PLT COUNT & AUTO [id number] 06:30:00 Test Item Value Reference Range Comments WHITE BLOOD CELL COUNT (BEAKER) (test gzxp=619) 3.7 K/ L 3.5-10.5 RED BLOOD CELL COUNT (BEAKER) (test tptk=577) 2.35 M/ L 4.63-6.08 HEMOGLOBIN (BEAKER) (test amdv=314) 7.4 GM/DL 13.7-17.5 HEMATOCRIT (BEAKER) (test reok=609) 22.1 % 40.1-51.0 MEAN CORPUSCULAR VOLUME (BEAKER) (test exgy=735) 94.0 fL 79.0-92.2 MEAN CORPUSCULAR HEMOGLOBIN (BEAKER) (test 31.5 pg 25.7-32.2 ehsn=162) MEAN CORPUSCULAR HEMOGLOBIN CONC (BEAKER) (test 33.5 GM/DL 32.3-36.5 gfzp=503) RED CELL DISTRIBUTION WIDTH (BEAKER) (test 14.8 % 11.6-14.4 dgod=378) PLATELET COUNT (BEAKER) (test lgcn=634) 45 K/CU MM 150-450 MEAN PLATELET VOLUME (BEAKER) (test sxab=156) 8.8 fL 9.4-12.4 NUCLEATED RED BLOOD CELLS (BEAKER) (test 0 /100 WBC 0-0 kxhx=577) NEUTROPHILS RELATIVE PERCENT (BEAKER) (test 61 % ujhw=107) LYMPHOCYTES RELATIVE PERCENT (BEAKER) (test 14 % zxsi=809) MONOCYTES RELATIVE PERCENT (BEAKER) (test 18 % lxth=504) EOSINOPHILS RELATIVE PERCENT (BEAKER) (test 6 % rlni=051) BASOPHILS RELATIVE PERCENT (BEAKER) (test 0 % hboi=379) NEUTROPHILS ABSOLUTE COUNT (BEAKER) (test 2.25 K/ L 1.78-5.38 fcgr=880) LYMPHOCYTES ABSOLUTE COUNT (BEAKER) (test 0.53 K/ L 1.32-3.57 pbyb=247) MONOCYTES ABSOLUTE COUNT (BEAKER) (test auxx=489) 0.67 K/ L 0.30-0.82 EOSINOPHILS ABSOLUTE COUNT (BEAKER) (test 0.23 K/ L 0.04-0.54 thmz=717) BASOPHILS ABSOLUTE COUNT (BEAKER) (test exzr=407) 0.01 K/ L 0.01-0.08 IMMATURE GRANULOCYTES-RELATIVE PERCENT (BEAKER) 1 % 0-1 (test bhnj=2732) PROTHROMBIN [id number] 06:07:00 Test Item Value Reference Range Comments PROTIME (BEAKER) (test pdix=574) 21.4 seconds 11.7-14.7 INR (BEAKER) (test hkhb=651) 1.9 <=5.9 RECOMMENDED COUMADIN/WARFARIN INR THERAPY RANGESSTANDARD DOSE: 2.0 - 3.0 Includes: PROPHYLAXIS forvenous thrombosis, systemic embolization; TREATMENT for venous thrombosis and/or pulmonary embolus.HIGH RISK: Target INR is 2.5-3.5 for patients with mechanical heart valves.POCT-GLUCOSE [id number] 23:37:00 Test Item Value Reference Range Comments POC-GLUCOSE METER (BEAKER) 154 mg/dL 70-110 TESTED AT [address] (test xthr=1824) [place] [address] BASIC METABOLIC [id number] 20:17:00 Test Item Value Reference Range Comments SODIUM (BEAKER) (test 125 meq/L 136-145 plhl=029) POTASSIUM (BEAKER) (test 4.0 meq/L 3.5-5.1 rqvw=144) CHLORIDE (BEAKER) (test 94 meq/L 98-107 sydr=849) CO2 (BEAKER) (test 25 meq/L 22-29 ivpz=669) BLOOD UREA NITROGEN 20 mg/dL 7-21 (BEAKER) (test hwab=998) CREATININE (BEAKER) (test 1.34 mg/dL 0.57-1.25 diwd=039) GLUCOSE RANDOM (BEAKER) 115 mg/dL 70-105 (test cdab=786) CALCIUM (BEAKER) (test 8.9 mg/dL 8.4-10.2 npyy=174) EGFR (BEAKER) (test 56 mL/min/1.73 sq m ESTIMATED GFR IS NOT vbcj=1259) ACCURATE CREATININE CLEARANCE IN PREDICTING GLOMERULAR FILTRATION RATE. ESTIMATED GFR IS NOT APPLICABLE FOR DIALYSIS PATIENTS. POCT-GLUCOSE [id number] 17:59:00 Test Item Value Reference Range Comments POC-GLUCOSE METER (BEAKER) 161 mg/dL 70-110 TESTED AT [address] (test sscz=6286) [place] [address] BODY FLUID CULTURE + GRAM [id number] 13:31:00 Test Item Value Reference Range Comments CULTURE (BEAKER) (test nzzp=3974) No growth GRAM STAIN RESULT (BEAKER) (test No organisms seen fcyc=0836) GRAM STAIN RESULT (BEAKER) (test No White blood cells seen vawj=49966) POCT-GLUCOSE [id number] 12:31:00 Test Item Value Reference Range Comments POC-GLUCOSE METER (BEAKER) 114 mg/dL 70-110 TESTED AT [address] (test lvqc=6134) [place] [address] BASIC METABOLIC [id number] 11:33:00 Test Item Value Reference Range Comments SODIUM (BEAKER) (test 124 meq/L 136-145 iula=275) POTASSIUM (BEAKER) (test 4.1 meq/L 3.5-5.1 kjnh=475) CHLORIDE (BEAKER) (test 94 meq/L 98-107 bbgi=663) CO2 (BEAKER) (test 23 meq/L 22-29 vmdm=505) BLOOD UREA NITROGEN 20 mg/dL 7-21 (BEAKER) (test jmul=528) CREATININE (BEAKER) (test 1.22 mg/dL 0.57-1.25 qxiw=122) GLUCOSE RANDOM (BEAKER) 94 mg/dL 70-105 (test wwpq=447) CALCIUM (BEAKER) (test 8.8 mg/dL 8.4-10.2 idel=483) EGFR (BEAKER) (test 62 mL/min/1.73 sq m ESTIMATED GFR IS NOT nzxu=7908) ACCURATE CREATININE CLEARANCE IN PREDICTING GLOMERULAR FILTRATION RATE. ESTIMATED GFR IS NOT APPLICABLE FOR DIALYSIS PATIENTS. [id number] 09:24:00 Test Item Value Reference Range Comments FERRITIN (BEAKER) (test gpzi=375) 1685 ng/mL 5-275 POCT-GLUCOSE [id number] 07:59:00 Test Item Value Reference Range Comments POC-GLUCOSE METER (BEAKER) 225 mg/dL 70-110 TESTED AT [address] (test zjww=8828) [facility] [address] IRON, TIBC, % SAT. (WITHOUT FERRITIN)[id number] 07:54:00 Test Item Value Reference Range Comments IRON (BEAKER) (test vgta=164) 98 ug/dL 40-160 TOTAL IRON BINDING CAPACITY (BEAKER) (test 90 ug/dL 250-450 yast=443) IRON % SATURATION (2) (BEAKER) (test zade=7259) 109 % 20-55 CALCIUM, [id number] 07:13:00 Test Item Value Reference Range Comments CALCIUM IONIZED (BEAKER) (test nfcr=054) 1.10 mmol/L 1.12-1.27 PH, BLOOD (BEAKER) (test gaiv=1260) 7.37 [id number] 06:32:00 Test Item Value Reference Range Comments PHOSPHORUS (BEAKER) (test xwmb=892) 2.6 mg/dL 2.3-4.7 [id number] 06:32:00 Test Item Value Reference Range Comments MAGNESIUM (BEAKER) (test rzhz=641) 1.8 mg/dL 1.6-2.6 COMPREHENSIVE METABOLIC [id number] 06:32:00 Test Item Value Reference Range Comments TOTAL PROTEIN (BEAKER) 5.0 gm/dL 6.0-8.3 (test pgeq=651) ALBUMIN (BEAKER) (test 3.2 g/dL 3.5-5.0 ujzf=2347) ALKALINE PHOSPHATASE 138 U/L 40-150 (BEAKER) (test rzbx=154) BILIRUBIN TOTAL (BEAKER) 2.1 mg/dL 0.2-1.2 (test ltri=168) SODIUM (BEAKER) (test 126 meq/L 136-145 xohh=853) POTASSIUM (BEAKER) (test 4.0 meq/L 3.5-5.1 ycdn=165) CHLORIDE (BEAKER) (test 95 meq/L 98-107 urev=836) CO2 (BEAKER) (test 23 meq/L 22-29 rssq=752) BLOOD UREA NITROGEN 21 mg/dL 7-21 (BEAKER) (test ehbq=595) CREATININE (BEAKER) (test 1.15 mg/dL 0.57-1.25 cwiz=986) GLUCOSE RANDOM (BEAKER) 110 mg/dL 70-105 (test bpoq=660) CALCIUM (BEAKER) (test 8.8 mg/dL 8.4-10.2 jvwt=695) AST (SGOT) (BEAKER) (test 22 U/L 5-34 skzl=111) ALT (SGPT) (BEAKER) (test 11 U/L 6-55 ngyh=515) EGFR (BEAKER) (test 67 mL/min/1.73 sq m ESTIMATED GFR IS NOT dkng=0629) ACCURATE CREATININE CLEARANCE IN PREDICTING GLOMERULAR FILTRATION RATE. ESTIMATED GFR IS NOT APPLICABLE FOR DIALYSIS PATIENTS. BASIC METABOLIC [id number] 06:32:00 Test Item Value Reference Range Comments SODIUM (BEAKER) (test 126 meq/L 136-145 tdlv=908) POTASSIUM (BEAKER) (test 4.0 meq/L 3.5-5.1 sjvt=023) CHLORIDE (BEAKER) (test 95 meq/L 98-107 foup=277) CO2 (BEAKER) (test 23 meq/L 22-29 ffuh=316) BLOOD UREA NITROGEN 21 mg/dL 7-21 (BEAKER) (test qjmj=155) CREATININE (BEAKER) (test 1.15 mg/dL 0.57-1.25 onwg=299) GLUCOSE RANDOM (BEAKER) 110 mg/dL 70-105 (test rphz=167) CALCIUM (BEAKER) (test 8.8 mg/dL 8.4-10.2 glqw=853) EGFR (BEAKER) (test 67 mL/min/1.73 sq m ESTIMATED GFR IS NOT kyga=0114) ACCURATE CREATININE CLEARANCE IN PREDICTING GLOMERULAR FILTRATION RATE. ESTIMATED GFR IS NOT APPLICABLE FOR DIALYSIS PATIENTS. BILIRUBIN, [id number] 06:32:00 Test Item Value Reference Range Comments BILIRUBIN DIRECT (BEAKER) (test htce=758) 1.4 mg/dL 0.1-0.5 PROTHROMBIN [id number] 05:44:00 Test Item Value Reference Range Comments PROTIME (BEAKER) (test hsso=518) 20.9 seconds 11.7-14.7 INR (BEAKER) (test yvhp=928) 1.8 <=5.9 RECOMMENDED COUMADIN/WARFARIN INR THERAPY RANGESSTANDARD DOSE: 2.0 - 3.0 Includes: PROPHYLAXIS forvenous thrombosis, systemic embolization; TREATMENT for venous thrombosis and/or pulmonary embolus.HIGH RISK: Target INR is 2.5-3.5 for patients with mechanical heart valves.CBC W/PLT COUNT & AUTO [id number] 05:43:00 Test Item Value Reference Range Comments WHITE BLOOD CELL COUNT (BEAKER) (test ueli=108) 4.0 K/ L 3.5-10.5 RED BLOOD CELL COUNT (BEAKER) (test ibuf=482) 2.30 M/ L 4.63-6.08 HEMOGLOBIN (BEAKER) (test okfh=587) 7.5 GM/DL 13.7-17.5 HEMATOCRIT (BEAKER) (test pgnq=386) 22.0 % 40.1-51.0 MEAN CORPUSCULAR VOLUME (BEAKER) (test rdyg=736) 95.7 fL 79.0-92.2 MEAN CORPUSCULAR HEMOGLOBIN (BEAKER) (test 32.6 pg 25.7-32.2 xxrf=530) MEAN CORPUSCULAR HEMOGLOBIN CONC (BEAKER) (test 34.1 GM/DL 32.3-36.5 jzto=782) RED CELL DISTRIBUTION WIDTH (BEAKER) (test 14.8 % 11.6-14.4 daho=163) PLATELET COUNT (BEAKER) (test kgma=378) 51 K/CU MM 150-450 MEAN PLATELET VOLUME (BEAKER) (test kiyd=493) 8.8 fL 9.4-12.4 NUCLEATED RED BLOOD CELLS (BEAKER) (test 0 /100 WBC 0-0 ikzj=640) NEUTROPHILS RELATIVE PERCENT (BEAKER) (test 61 % ssoi=839) LYMPHOCYTES RELATIVE PERCENT (BEAKER) (test 12 % zexf=546) MONOCYTES RELATIVE PERCENT (BEAKER) (test 19 % ticd=594) EOSINOPHILS RELATIVE PERCENT (BEAKER) (test 7 % befz=786) BASOPHILS RELATIVE PERCENT (BEAKER) (test 0 % ypaz=765) NEUTROPHILS ABSOLUTE COUNT (BEAKER) (test 2.43 K/ L 1.78-5.38 fldg=363) LYMPHOCYTES ABSOLUTE COUNT (BEAKER) (test 0.49 K/ L 1.32-3.57 hrkd=755) MONOCYTES ABSOLUTE COUNT (BEAKER) (test kdmn=744) 0.75 K/ L 0.30-0.82 EOSINOPHILS ABSOLUTE COUNT (BEAKER) (test 0.29 K/ L 0.04-0.54 tkyy=509) BASOPHILS ABSOLUTE COUNT (BEAKER) (test xibm=500) 0.00 K/ L 0.01-0.08 IMMATURE GRANULOCYTES-RELATIVE PERCENT (BEAKER) 1 % 0-1 (test uzxn=4943) POCT-GLUCOSE [id number] 22:23:00 Test Item Value Reference Range Comments POC-GLUCOSE METER (BEAKER) 166 mg/dL 70-110 TESTED AT [address] (test uhop=6036) [facility] [id number] POCT-GLUCOSE [id number] 16:12:00 Test Item Value Reference Range Comments POC-GLUCOSE METER (BEAKER) 110 mg/dL 70-110 TESTED AT [address] (test abac=2785) [facility] [address] PTH, [id number] 15:57:00 Test Item Value Reference Range Comments PARATHYROID HORMONE INTACT (BEAKER) (test 26.2 pg/mL 8.5-72.5 llvi=560) GAMMA GLUTAMYL TRANSFERASE (GGT)2018-08-28 15:51:00 Test Item Value Reference Range Comments GAMMA GLUTAMYL TRANSFERASE (BEAKER) (test hbfi=119) 11 U/L 9-64 BASIC METABOLIC [id number] 15:49:00 Test Item Value Reference Range Comments SODIUM (BEAKER) (test 127 meq/L 136-145 dlsr=247) POTASSIUM (BEAKER) (test 3.6 meq/L 3.5-5.1 ztxb=770) CHLORIDE (BEAKER) (test 97 meq/L 98-107 hyzg=111) CO2 (BEAKER) (test 23 meq/L 22-29 sosm=211) BLOOD UREA NITROGEN 20 mg/dL 7-21 (BEAKER) (test tdve=194) CREATININE (BEAKER) (test 1.19 mg/dL 0.57-1.25 kbcg=334) GLUCOSE RANDOM (BEAKER) 123 mg/dL 70-105 (test gjtq=390) CALCIUM (BEAKER) (test 8.6 mg/dL 8.4-10.2 qsxy=273) EGFR (BEAKER) (test 64 mL/min/1.73 sq m ESTIMATED GFR IS NOT yrpt=2190) ACCURATE CREATININE CLEARANCE IN PREDICTING GLOMERULAR FILTRATION RATE. ESTIMATED GFR IS NOT APPLICABLE FOR DIALYSIS PATIENTS. VITAMIN D, [id number] 15:24:00 Test Item Value Reference Range Comments VITAMIN D 25-OH (BEAKER) (test byjh=0193) 11.2 ng/mL 6.6-49.9 Effective 08/06/2017: Reference Range ChangeNew: 6.6-49.9 ng/mL Previous: 13.0 -47.8 ng/mLRecommended Vitamin D Target Range: 30.0-40.0 ng/mLPOCT-GLUCOSE [id number] 12:35:00 Test Item Value Reference Range Comments POC-GLUCOSE METER (BEAKER) 138 mg/dL 70-110 TESTED AT [facility] [address] (test vfox=3907) [facility] [address] BASIC METABOLIC [id number] 09:59:00 Test Item Value Reference Range Comments SODIUM (BEAKER) (test 130 meq/L 136-145 nucx=572) POTASSIUM (BEAKER) (test 4.1 meq/L 3.5-5.1 ztzx=152) CHLORIDE (BEAKER) (test 99 meq/L 98-107 ciea=987) CO2 (BEAKER) (test 24 meq/L 22-29 xkph=986) BLOOD UREA NITROGEN 22 mg/dL 7-21 (BEAKER) (test dpdr=345) CREATININE (BEAKER) (test 1.31 mg/dL 0.57-1.25 vgcw=016) GLUCOSE RANDOM (BEAKER) 121 mg/dL 70-105 (test ylxm=488) CALCIUM (BEAKER) (test 9.4 mg/dL 8.4-10.2 fhst=978) EGFR (BEAKER) (test 57 mL/min/1.73 sq m ESTIMATED GFR IS NOT qehs=8604) ACCURATE CREATININE CLEARANCE IN PREDICTING GLOMERULAR FILTRATION RATE. ESTIMATED GFR IS NOT APPLICABLE FOR DIALYSIS PATIENTS. POCT-GLUCOSE [id number] 08:17:00 Test Item Value Reference Range Comments POC-GLUCOSE METER (BEAKER) 131 mg/dL 70-110 TESTED AT [address] (test schz=3059) [facility] [address] CALCIUM, [id number] 06:01:00 Test Item Value Reference Range Comments CALCIUM IONIZED (BEAKER) (test abqg=191) 1.06 mmol/L 1.12-1.27 PH, BLOOD (BEAKER) (test wzsb=3037) 7.42 [id number] 05:52:00 Test Item Value Reference Range Comments PHOSPHORUS (BEAKER) (test btgi=133) 3.1 mg/dL 2.3-4.7 [id number] 05:52:00 Test Item Value Reference Range Comments MAGNESIUM (BEAKER) (test qcto=307) 2.3 mg/dL 1.6-2.6 BASIC METABOLIC [id number] 05:52:00 Test Item Value Reference Range Comments SODIUM (BEAKER) (test 130 meq/L 136-145 yofx=981) POTASSIUM (BEAKER) (test 3.8 meq/L 3.5-5.1 wpha=071) CHLORIDE (BEAKER) (test 98 meq/L 98-107 icku=469) CO2 (BEAKER) (test 22 meq/L 22-29 odzr=899) BLOOD UREA NITROGEN 22 mg/dL 7-21 (BEAKER) (test ryyx=224) CREATININE (BEAKER) (test 1.37 mg/dL 0.57-1.25 knyk=720) GLUCOSE RANDOM (BEAKER) 118 mg/dL 70-105 (test ptep=381) CALCIUM (BEAKER) (test 9.6 mg/dL 8.4-10.2 mxrr=742) EGFR (BEAKER) (test 54 mL/min/1.73 sq m ESTIMATED GFR IS NOT frkg=1125) ACCURATE CREATININE CLEARANCE IN PREDICTING GLOMERULAR FILTRATION RATE. ESTIMATED GFR IS NOT APPLICABLE FOR DIALYSIS PATIENTS. Specimen slightly ictericCOMPREHENSIVE METABOLIC [id number] 05:52:00 Test Item Value Reference Range Comments TOTAL PROTEIN (BEAKER) 5.6 gm/dL 6.0-8.3 (test dkyh=057) ALBUMIN (BEAKER) (test 3.6 g/dL 3.5-5.0 oiyp=1498) ALKALINE PHOSPHATASE 146 U/L 40-150 (BEAKER) (test ovxl=963) BILIRUBIN TOTAL (BEAKER) 2.5 mg/dL 0.2-1.2 (test xctf=676) SODIUM (BEAKER) (test 130 meq/L 136-145 vrzf=468) POTASSIUM (BEAKER) (test 3.8 meq/L 3.5-5.1 hinz=856) CHLORIDE (BEAKER) (test 98 meq/L 98-107 gmor=846) CO2 (BEAKER) (test 22 meq/L 22-29 aegq=386) BLOOD UREA NITROGEN 22 mg/dL 7-21 (BEAKER) (test virx=275) CREATININE (BEAKER) (test 1.37 mg/dL 0.57-1.25 cdbi=593) GLUCOSE RANDOM (BEAKER) 118 mg/dL 70-105 (test juxo=260) CALCIUM (BEAKER) (test 9.6 mg/dL 8.4-10.2 pwrm=927) AST (SGOT) (BEAKER) (test 25 U/L 5-34 onss=093) ALT (SGPT) (BEAKER) (test 10 U/L 6-55 jtqm=803) EGFR (BEAKER) (test 54 mL/min/1.73 sq m ESTIMATED GFR IS NOT tdxc=1465) ACCURATE CREATININE CLEARANCE IN PREDICTING GLOMERULAR FILTRATION RATE. ESTIMATED GFR IS NOT APPLICABLE FOR DIALYSIS PATIENTS. Specimen slightly ictericBILIRUBIN, [id number] 05:52:00 Test Item Value Reference Range Comments BILIRUBIN DIRECT (BEAKER) (test zlux=635) 1.6 mg/dL 0.1-0.5 PROTHROMBIN [id number] 05:41:00 Test Item Value Reference Range Comments PROTIME (BEAKER) (test zaqi=912) 21.3 seconds 11.7-14.7 INR (BEAKER) (test gaxf=479) 1.8 <=5.9 RECOMMENDED COUMADIN/WARFARIN INR THERAPY RANGESSTANDARD DOSE: 2.0 - 3.0 Includes: PROPHYLAXIS forvenous thrombosis, systemic embolization; TREATMENT for venous thrombosis and/or pulmonary embolus.HIGH RISK: Target INR is 2.5-3.5 for patients with mechanical heart valves.CBC W/PLT COUNT & AUTO [id number] 05:32:00 Test Item Value Reference Range Comments WHITE BLOOD CELL COUNT (BEAKER) (test sedf=411) 5.0 K/ L 3.5-10.5 RED BLOOD CELL COUNT (BEAKER) (test buij=676) 2.53 M/ L 4.63-6.08 HEMOGLOBIN (BEAKER) (test vrzu=621) 8.1 GM/DL 13.7-17.5 HEMATOCRIT (BEAKER) (test vzww=196) 23.6 % 40.1-51.0 MEAN CORPUSCULAR VOLUME (BEAKER) (test qlbe=757) 93.3 fL 79.0-92.2 MEAN CORPUSCULAR HEMOGLOBIN (BEAKER) (test 32.0 pg 25.7-32.2 itoe=853) MEAN CORPUSCULAR HEMOGLOBIN CONC (BEAKER) (test 34.3 GM/DL 32.3-36.5 qgvu=376) RED CELL DISTRIBUTION WIDTH (BEAKER) (test 14.6 % 11.6-14.4 fsdv=015) PLATELET COUNT (BEAKER) (test izfx=736) 73 K/CU MM 150-450 MEAN PLATELET VOLUME (BEAKER) (test opeq=388) 8.8 fL 9.4-12.4 NUCLEATED RED BLOOD CELLS (BEAKER) (test 0 /100 WBC 0-0 sflt=495) NEUTROPHILS RELATIVE PERCENT (BEAKER) (test 71 % gsay=496) LYMPHOCYTES RELATIVE PERCENT (BEAKER) (test 10 % yhvf=057) MONOCYTES RELATIVE PERCENT (BEAKER) (test 16 % kzrs=212) EOSINOPHILS RELATIVE PERCENT (BEAKER) (test 3 % tiaq=306) BASOPHILS RELATIVE PERCENT (BEAKER) (test 0 % cafw=619) NEUTROPHILS ABSOLUTE COUNT (BEAKER) (test 3.56 K/ L 1.78-5.38 xsbo=581) LYMPHOCYTES ABSOLUTE COUNT (BEAKER) (test 0.48 K/ L 1.32-3.57 cfxh=710) MONOCYTES ABSOLUTE COUNT (BEAKER) (test etwz=910) 0.80 K/ L 0.30-0.82 EOSINOPHILS ABSOLUTE COUNT (BEAKER) (test 0.13 K/ L 0.04-0.54 ccsx=802) BASOPHILS ABSOLUTE COUNT (BEAKER) (test naap=504) 0.01 K/ L 0.01-0.08 IMMATURE GRANULOCYTES-RELATIVE PERCENT (BEAKER) 1 % 0-1 (test fsyr=1235) POCT-GLUCOSE [id number] 21:24:00 Test Item Value Reference Range Comments POC-GLUCOSE METER (BEAKER) 137 mg/dL 70-110 TESTED AT [address] (test yksl=7852) [place] [address] POCT-GLUCOSE [id number] 17:52:00 Test Item Value Reference Range Comments POC-GLUCOSE METER (BEAKER) 166 mg/dL 70-110 TESTED AT [address] (test czuo=1603) [place] [address] BASIC METABOLIC [id number] 17:48:00 Test Item Value Reference Range Comments SODIUM (BEAKER) (test 128 meq/L 136-145 pgbc=904) POTASSIUM (BEAKER) (test 4.0 meq/L 3.5-5.1 chrb=160) CHLORIDE (BEAKER) (test 97 meq/L 98-107 urzm=456) CO2 (BEAKER) (test 23 meq/L 22-29 luyt=249) BLOOD UREA NITROGEN 24 mg/dL 7-21 (BEAKER) (test vzef=478) CREATININE (BEAKER) (test 1.25 mg/dL 0.57-1.25 lrmr=736) GLUCOSE RANDOM (BEAKER) 123 mg/dL 70-105 (test oarc=501) CALCIUM (BEAKER) (test 8.9 mg/dL 8.4-10.2 nofa=090) EGFR (BEAKER) (test 60 mL/min/1.73 sq m ESTIMATED GFR IS NOT fsqy=0004) ACCURATE CREATININE CLEARANCE IN PREDICTING GLOMERULAR FILTRATION RATE. ESTIMATED GFR IS NOT APPLICABLE FOR DIALYSIS PATIENTS. POCT-GLUCOSE [id number] 12:18:00 Test Item Value Reference Range Comments POC-GLUCOSE METER (BEAKER) 152 mg/dL 70-110 TESTED AT [address] (test hwif=1898) [place] [address] POCT-GLUCOSE [id number] 09:31:00 Test Item Value Reference Range Comments POC-GLUCOSE METER (BEAKER) 142 mg/dL 70-110 TESTED AT [address] (test aqwk=6859) [place] [address] BASIC METABOLIC [id number] 09:03:00 Test Item Value Reference Range Comments SODIUM (BEAKER) (test 125 meq/L 136-145 vvjf=567) POTASSIUM (BEAKER) (test 5.1 meq/L 3.5-5.1 Specimen slightly ptle=569) hemolyzed CHLORIDE (BEAKER) (test 95 meq/L 98-107 rglp=117) CO2 (BEAKER) (test 23 meq/L 22-29 kidf=165) BLOOD UREA NITROGEN 26 mg/dL 7-21 (BEAKER) (test lkkv=510) CREATININE (BEAKER) (test 1.25 mg/dL 0.57-1.25 Specimen slightly hmyi=720) hemolyzed GLUCOSE RANDOM (BEAKER) 99 mg/dL 70-105 (test rcff=012) CALCIUM (BEAKER) (test 9.0 mg/dL 8.4-10.2 mzca=258) EGFR (BEAKER) (test 60 mL/min/1.73 sq m ESTIMATED GFR IS NOT akmm=8879) ACCURATE CREATININE CLEARANCE IN PREDICTING GLOMERULAR FILTRATION RATE. ESTIMATED GFR IS NOT APPLICABLE FOR DIALYSIS PATIENTS. POCT-GLUCOSE [id number] 08:38:00 Test Item Value Reference Range Comments POC-GLUCOSE METER (BEAKER) 171 mg/dL 70-110 TESTED AT [address] (test axaz=1706) [place] [address] [id number] 05:30:00 Test Item Value Reference Range Comments PHOSPHORUS (BEAKER) (test cdef=213) 2.9 mg/dL 2.3-4.7 [id number] 05:30:00 Test Item Value Reference Range Comments MAGNESIUM (BEAKER) (test ckml=699) 2.2 mg/dL 1.6-2.6 COMPREHENSIVE METABOLIC [id number] 05:30:00 Test Item Value Reference Range Comments TOTAL PROTEIN (BEAKER) 5.2 gm/dL 6.0-8.3 (test odmw=970) ALBUMIN (BEAKER) (test 3.4 g/dL 3.5-5.0 vbpw=7847) ALKALINE PHOSPHATASE 134 U/L 40-150 (BEAKER) (test djvu=468) BILIRUBIN TOTAL (BEAKER) 2.3 mg/dL 0.2-1.2 (test rbtz=286) SODIUM (BEAKER) (test 124 meq/L 136-145 zqvn=049) POTASSIUM (BEAKER) (test 4.9 meq/L 3.5-5.1 ezls=513) CHLORIDE (BEAKER) (test 94 meq/L 98-107 czvx=076) CO2 (BEAKER) (test 24 meq/L 22-29 hkma=138) BLOOD UREA NITROGEN 27 mg/dL 7-21 (BEAKER) (test jrzj=168) CREATININE (BEAKER) (test 1.27 mg/dL 0.57-1.25 cyrk=718) GLUCOSE RANDOM (BEAKER) 122 mg/dL 70-105 (test kgle=244) CALCIUM (BEAKER) (test 9.2 mg/dL 8.4-10.2 ikoj=278) AST (SGOT) (BEAKER) (test 24 U/L 5-34 qzrh=765) ALT (SGPT) (BEAKER) (test 10 U/L 6-55 pjpj=053) EGFR (BEAKER) (test 59 mL/min/1.73 sq m ESTIMATED GFR IS NOT vnqv=1407) ACCURATE CREATININE CLEARANCE IN PREDICTING GLOMERULAR FILTRATION RATE. ESTIMATED GFR IS NOT APPLICABLE FOR DIALYSIS PATIENTS. BILIRUBIN, [id number] 05:30:00 Test Item Value Reference Range Comments BILIRUBIN DIRECT (BEAKER) (test rche=885) 1.5 mg/dL 0.1-0.5 PROTHROMBIN [id number] 05:09:00 Test Item Value Reference Range Comments PROTIME (BEAKER) (test hgto=304) 22.3 seconds 11.7-14.7 INR (BEAKER) (test zyvt=089) 2.0 <=5.9 RECOMMENDED COUMADIN/WARFARIN INR THERAPY RANGESSTANDARD DOSE: 2.0 - 3.0 Includes: PROPHYLAXIS forvenous thrombosis, systemic embolization; TREATMENT for venous thrombosis and/or pulmonary embolus.HIGH RISK: Target INR is 2.5-3.5 for patients with mechanical heart valves.CBC W/PLT COUNT & AUTO [id number] 04:59:00 Test Item Value Reference Range Comments WHITE BLOOD CELL COUNT (BEAKER) (test xxwt=480) 5.0 K/ L 3.5-10.5 RED BLOOD CELL COUNT (BEAKER) (test pjpp=792) 2.24 M/ L 4.63-6.08 HEMOGLOBIN (BEAKER) (test wjyf=712) 7.2 GM/DL 13.7-17.5 HEMATOCRIT (BEAKER) (test xjvi=439) 20.8 % 40.1-51.0 MEAN CORPUSCULAR VOLUME (BEAKER) (test rzpj=366) 92.9 fL 79.0-92.2 MEAN CORPUSCULAR HEMOGLOBIN (BEAKER) (test 32.1 pg 25.7-32.2 oric=340) MEAN CORPUSCULAR HEMOGLOBIN CONC (BEAKER) (test 34.6 GM/DL 32.3-36.5 bzwy=472) RED CELL DISTRIBUTION WIDTH (BEAKER) (test 14.2 % 11.6-14.4 cmrd=255) PLATELET COUNT (BEAKER) (test wrrv=538) 56 K/CU MM 150-450 MEAN PLATELET VOLUME (BEAKER) (test yren=336) 8.9 fL 9.4-12.4 NUCLEATED RED BLOOD CELLS (BEAKER) (test 0 /100 WBC 0-0 safk=847) NEUTROPHILS RELATIVE PERCENT (BEAKER) (test 82 % fxwv=644) LYMPHOCYTES RELATIVE PERCENT (BEAKER) (test 5 % cvsc=420) MONOCYTES RELATIVE PERCENT (BEAKER) (test 12 % smij=893) EOSINOPHILS RELATIVE PERCENT (BEAKER) (test 0 % wpdn=279) BASOPHILS RELATIVE PERCENT (BEAKER) (test 0 % roze=818) NEUTROPHILS ABSOLUTE COUNT (BEAKER) (test 4.12 K/ L 1.78-5.38 kexz=349) LYMPHOCYTES ABSOLUTE COUNT (BEAKER) (test 0.26 K/ L 1.32-3.57 uhgu=975) MONOCYTES ABSOLUTE COUNT (BEAKER) (test qxdc=597) 0.59 K/ L 0.30-0.82 EOSINOPHILS ABSOLUTE COUNT (BEAKER) (test 0.00 K/ L 0.04-0.54 lkiu=787) BASOPHILS ABSOLUTE COUNT (BEAKER) (test ynoi=417) 0.00 K/ L 0.01-0.08 IMMATURE GRANULOCYTES-RELATIVE PERCENT (BEAKER) 1 % 0-1 (test ihle=3509) CALCIUM, [id number] 04:57:00 Test Item Value Reference Range Comments CALCIUM IONIZED (BEAKER) (test pexo=955) 1.14 mmol/L 1.12-1.27 PH, BLOOD (BEAKER) (test qhxt=3246) 7.39 POCT-GLUCOSE [id number] 00:41:00 Test Item Value Reference Range Comments POC-GLUCOSE METER (BEAKER) 186 mg/dL 70-110 TESTED AT [facility] [address] (test achy=0716) [facility] [address] CORTISOL,60 [id number] 23:00:00 Test Item Value Reference Range Comments CORTISOL BASELINE NETWORKED (BEAKER) (test 7.5 mcg/dL odvs=9758) CORTISOL 30 MINUTE NETWORKED (BEAKER) (test 14.1 mcg/dL iipg=0461) CORTISOL, 60 MINUTE (BEAKER) (test yuhu=7507) 18.9 ug/dL ACTH STIMULATION TEST INTERPRETATION GUIDELINES(Synonyms: [...] serum cortisollevel 60 minutes after cosyntropin administration.CORTISOL,30 [id number] 22:05:00 Test Item Value Reference Range Comments CORTISOL BASELINE NETWORKED (BEAKER) (test 7.5 mcg/dL zoys=8733) CORTISOL, 30 MINUTE (BEAKER) (test yswm=6439) 14.1 ug/dL ACTH STIMULATION TEST INTERPRETATION GUIDELINES(Synonyms: [...] cortisollevel 60 minutes after cosyntropin administration.BASIC METABOLIC [id number] 21:42:00 Test Item Value Reference Range Comments SODIUM (BEAKER) (test 123 meq/L 136-145 ltkw=940) POTASSIUM (BEAKER) (test 4.3 meq/L 3.5-5.1 iiso=457) CHLORIDE (BEAKER) (test 93 meq/L 98-107 vuor=878) CO2 (BEAKER) (test 24 meq/L 22-29 wtrp=753) BLOOD UREA NITROGEN 29 mg/dL 7-21 (BEAKER) (test izsx=829) CREATININE (BEAKER) (test 1.38 mg/dL 0.57-1.25 dbee=241) GLUCOSE RANDOM (BEAKER) 109 mg/dL 70-105 (test tznu=387) CALCIUM (BEAKER) (test 9.2 mg/dL 8.4-10.2 yxmr=536) EGFR (BEAKER) (test 54 mL/min/1.73 sq m ESTIMATED GFR IS NOT furm=9013) ACCURATE CREATININE CLEARANCE IN PREDICTING GLOMERULAR FILTRATION RATE. ESTIMATED GFR IS NOT APPLICABLE FOR DIALYSIS PATIENTS. Call results to Dr Almendarez METABOLIC [id number] 18:03:00 Test Item Value Reference Range Comments SODIUM (BEAKER) (test 124 meq/L 136-145 elyw=290) POTASSIUM (BEAKER) (test 4.6 meq/L 3.5-5.1 aayw=268) CHLORIDE (BEAKER) (test 93 meq/L 98-107 cupx=908) CO2 (BEAKER) (test 25 meq/L 22-29 zmnt=120) BLOOD UREA NITROGEN 32 mg/dL 7-21 (BEAKER) (test alle=042) CREATININE (BEAKER) (test 1.40 mg/dL 0.57-1.25 tdre=938) GLUCOSE RANDOM (BEAKER) 94 mg/dL 70-105 (test kskz=216) CALCIUM (BEAKER) (test 9.0 mg/dL 8.4-10.2 zvrf=882) EGFR (BEAKER) (test 53 mL/min/1.73 sq m ESTIMATED GFR IS NOT hslw=9854) ACCURATE CREATININE CLEARANCE IN PREDICTING GLOMERULAR FILTRATION RATE. ESTIMATED GFR IS NOT APPLICABLE FOR DIALYSIS PATIENTS. BODY FLUID CELL COUNT WITH [id number] 13:54:00 Test Item Value Reference Range Comments APPEARANCE FLUID (BEAKER) (test eslm=888) Slightly Hazy Clear COLOR FLUID (BEAKER) (test mzzz=385) Yellow Colorless, Straw RBC FLUID (BEAKER) (test tsbo=590) 1000 /cu mm <=1 ADJUSTED WBC FLUID (BEAKER) (test mhiv=5947) 54 /cu mm <=5 LINING CELLS (BEAKER) (test scbd=1068) 2 /cu mm <=1 NEUTROPHILS FLUID (BEAKER) (test dyxf=7965) 6 % LYMPHS FLUID (BEAKER) (test zxzm=178) 25 % MONO/MACROPHAGE FLUID (BEAKER) (test 69 % spxr=757) EOSINOPHILS FLUID (BEAKER) (test brna=206) 0 % BASO FLUID (BEAKER) (test gehx=065) 0 % CONTAINER BODY FLUID (BEAKER) (test Sterile Vial ptmy=7893) ALBUMIN, BODY [id number] 13:45:00 Test Item Value Reference Range Comments ALBUMIN FLUID (BEAKER) (test fgra=842) 0.8 gm/dL Reference Range: No Normals Assay performance has not been validated for this type of specimen.LACTATE DEHYDROGENASE (LDH), BODY [id number] 13:13:00 Test Item Value Reference Range Comments LACTATE DEHYDROGENASE FLUID (BEAKER) (test minb=496) < U/L Absence of reference range indicates that normals have not been defined.Assay performance has not been validated for this type of specimen.GLUCOSE, BODY [id number] 13:13:00 Test Item Value Reference Range Comments GLUCOSE, BODY FLUID (BEAKER) (test ujyt=4430) 82 mg/dL Absence of reference range indicates that normals have not been defined.Assay performance has not been validated for this type of specimen.TRIGLYCERIDES, BODY [id number] 13:10:00 Test Item Value Reference Range Comments TRIGLYCERIDES FLUID (BEAKER) (test fcrb=123) 39 mg/dL Reference Range: No Normals Assay performance has not been validated for this type of specimen.PROTEIN, BODY [id number] 13:09:00 Test Item Value Reference Range Comments PROTEIN FLUID (BEAKER) (test saea=274) 1.2 g/dL Absence of reference range indicates that normals have not been defined.Assay performance has not been validated for this type of specimen.CORTISOL, [id number] 12:52:00 Test Item Value Reference Range Comments CORTISOL, BASELINE (BEAKER) (test yjye=9833) 7.5 ug/dL ACTH STIMULATION TEST INTERPRETATION GUIDELINES(Synonyms: [...] cortisollevel 60 minutes after cosyntropin administration.BASIC METABOLIC [id number] 12:40:00 Test Item Value Reference Range Comments SODIUM (BEAKER) (test 119 meq/L 136-145 xsqx=531) POTASSIUM (BEAKER) (test 5.2 meq/L 3.5-5.1 bcqd=468) CHLORIDE (BEAKER) (test 90 meq/L 98-107 xmaq=280) CO2 (BEAKER) (test 23 meq/L 22-29 pscq=709) BLOOD UREA NITROGEN 34 mg/dL 7-21 (BEAKER) (test xsbs=021) CREATININE (BEAKER) (test 1.46 mg/dL 0.57-1.25 pdnj=412) GLUCOSE RANDOM (BEAKER) 84 mg/dL 70-105 (test cbhj=698) CALCIUM (BEAKER) (test 8.8 mg/dL 8.4-10.2 fthc=806) EGFR (BEAKER) (test 51 mL/min/1.73 sq m ESTIMATED GFR IS NOT ehsg=7559) ACCURATE CREATININE CLEARANCE IN PREDICTING GLOMERULAR FILTRATION RATE. ESTIMATED GFR IS NOT APPLICABLE FOR DIALYSIS PATIENTS. Specimen slightly ictericRAD, CHEST, 1 VIEW, NON [id number] 11:50:00Reason for exam:->coughShould this be performed at the bedside?->YesFINAL REPORT Chest one view compared to May 12, 2018 Discussion: There is diffuse interstitial prominence. No effusion or pneumothorax. Heart size normal. IMPRESSIONS: No changeSigned: Nisbet, Karina MDReport Verified Date/ Time: 08/26/2018 11:50:19 Reading Location: [facility] Radiology Reading Room BASIC METABOLIC [id number] 09:35:00 Test Item Value Reference Range Comments SODIUM (BEAKER) (test 119 meq/L 136-145 fgmq=965) POTASSIUM (BEAKER) (test 4.9 meq/L 3.5-5.1 fouw=672) CHLORIDE (BEAKER) (test 89 meq/L 98-107 oswf=177) CO2 (BEAKER) (test 23 meq/L 22-29 ifdy=539) BLOOD UREA NITROGEN 36 mg/dL 7-21 (BEAKER) (test tpwk=913) CREATININE (BEAKER) (test 1.46 mg/dL 0.57-1.25 fzlz=116) GLUCOSE RANDOM (BEAKER) 83 mg/dL 70-105 (test axwl=657) CALCIUM (BEAKER) (test 8.8 mg/dL 8.4-10.2 vkzs=398) EGFR (BEAKER) (test 51 mL/min/1.73 sq m ESTIMATED GFR IS NOT xery=3671) ACCURATE CREATININE CLEARANCE IN PREDICTING GLOMERULAR FILTRATION RATE. ESTIMATED GFR IS NOT APPLICABLE FOR DIALYSIS PATIENTS. POCT-GLUCOSE [id number] 05:56:00 Test Item Value Reference Range Comments POC-GLUCOSE METER (BEAKER) 86 mg/dL 70-110 TESTED AT [facility] [address] [facility] (test qioq=0008) [facility] [address] CBC W/PLT COUNT & AUTO [id number] 04:42:00 Test Item Value Reference Range Comments WHITE BLOOD CELL COUNT (BEAKER) (test xbcc=491) 10.5 K/ L 3.5-10.5 RED BLOOD CELL COUNT (BEAKER) (test objz=020) 2.37 M/ L 4.63-6.08 HEMOGLOBIN (BEAKER) (test pzrt=219) 7.4 GM/DL 13.7-17.5 HEMATOCRIT (BEAKER) (test nulj=585) 21.6 % 40.1-51.0 MEAN CORPUSCULAR VOLUME (BEAKER) (test xnfl=406) 91.1 fL 79.0-92.2 MEAN CORPUSCULAR HEMOGLOBIN (BEAKER) (test 31.2 pg 25.7-32.2 ytym=505) MEAN CORPUSCULAR HEMOGLOBIN CONC (BEAKER) (test 34.3 GM/DL 32.3-36.5 qlzg=202) RED CELL DISTRIBUTION WIDTH (BEAKER) (test 14.4 % 11.6-14.4 stqm=722) PLATELET COUNT (BEAKER) (test vyyq=966) 67 K/CU MM 150-450 MEAN PLATELET VOLUME (BEAKER) (test bcnr=467) 8.3 fL 9.4-12.4 NUCLEATED RED BLOOD CELLS (BEAKER) (test 0 /100 WBC 0-0 trfb=946) NEUTROPHILS RELATIVE PERCENT (BEAKER) (test 82 % eqcq=776) LYMPHOCYTES RELATIVE PERCENT (BEAKER) (test 4 % xbvj=187) MONOCYTES RELATIVE PERCENT (BEAKER) (test 12 % xxnb=430) EOSINOPHILS RELATIVE PERCENT (BEAKER) (test 1 % ddou=926) BASOPHILS RELATIVE PERCENT (BEAKER) (test 0 % aukl=364) NEUTROPHILS ABSOLUTE COUNT (BEAKER) (test 8.62 K/ L 1.78-5.38 eaoz=881) LYMPHOCYTES ABSOLUTE COUNT (BEAKER) (test 0.45 K/ L 1.32-3.57 rncm=418) MONOCYTES ABSOLUTE COUNT (BEAKER) (test vfcr=771) 1.31 K/ L 0.30-0.82 EOSINOPHILS ABSOLUTE COUNT (BEAKER) (test 0.10 K/ L 0.04-0.54 vtzu=784) BASOPHILS ABSOLUTE COUNT (BEAKER) (test jizl=734) 0.00 K/ L 0.01-0.08 IMMATURE GRANULOCYTES-RELATIVE PERCENT (BEAKER) 1 % 0-1 (test hqpp=5034) COMPREHENSIVE METABOLIC [id number] 04:36:00 Test Item Value Reference Range Comments TOTAL PROTEIN (BEAKER) 4.9 gm/dL 6.0-8.3 (test keaj=391) ALBUMIN (BEAKER) (test 2.8 g/dL 3.5-5.0 eoof=5015) ALKALINE PHOSPHATASE 146 U/L 40-150 (BEAKER) (test kwvh=350) BILIRUBIN TOTAL (BEAKER) 2.9 mg/dL 0.2-1.2 (test woil=404) SODIUM (BEAKER) (test 118 meq/L 136-145 qubs=468) POTASSIUM (BEAKER) (test 5.2 meq/L 3.5-5.1 nkcx=321) CHLORIDE (BEAKER) (test 90 meq/L 98-107 axxo=239) CO2 (BEAKER) (test 23 meq/L 22-29 svbv=680) BLOOD UREA NITROGEN 37 mg/dL 7-21 (BEAKER) (test auff=147) CREATININE (BEAKER) (test 1.47 mg/dL 0.57-1.25 gbxo=881) GLUCOSE RANDOM (BEAKER) 65 mg/dL 70-105 (test kwwg=944) CALCIUM (BEAKER) (test 8.9 mg/dL 8.4-10.2 jsqf=588) AST (SGOT) (BEAKER) (test 29 U/L 5-34 raij=601) ALT (SGPT) (BEAKER) (test 10 U/L 6-55 qnxp=390) EGFR (BEAKER) (test 50 mL/min/1.73 sq m ESTIMATED GFR IS NOT qemn=8823) ACCURATE CREATININE CLEARANCE IN PREDICTING GLOMERULAR FILTRATION RATE. ESTIMATED GFR IS NOT APPLICABLE FOR DIALYSIS PATIENTS. Specimen slightly [id number] 04:33:00 Test Item Value Reference Range Comments PHOSPHORUS (BEAKER) (test eeft=195) 3.1 mg/dL 2.3-4.7 [id number] 04:33:00 Test Item Value Reference Range Comments MAGNESIUM (BEAKER) (test uqpu=942) 2.1 mg/dL 1.6-2.6 CALCIUM, [id number] 04:05:00 Test Item Value Reference Range Comments CALCIUM IONIZED (BEAKER) (test kxqy=774) 1.13 mmol/L 1.12-1.27 PH, BLOOD (BEAKER) (test cfyf=9312) 7.38 BASIC METABOLIC [id number] 01:34:00 Test Item Value Reference Range Comments SODIUM (BEAKER) (test 117 meq/L 136-145 tzuk=021) POTASSIUM (BEAKER) (test 4.9 meq/L 3.5-5.1 ueyi=545) CHLORIDE (BEAKER) (test 89 meq/L 98-107 nkmm=286) CO2 (BEAKER) (test 22 meq/L 22-29 ajgm=890) BLOOD UREA NITROGEN 37 mg/dL 7-21 (BEAKER) (test lbnk=979) CREATININE (BEAKER) (test 1.52 mg/dL 0.57-1.25 ussn=423) GLUCOSE RANDOM (BEAKER) 67 mg/dL 70-105 (test odzl=030) CALCIUM (BEAKER) (test 9.1 mg/dL 8.4-10.2 npvt=561) EGFR (BEAKER) (test 48 mL/min/1.73 sq m ESTIMATED GFR IS NOT ebqv=4520) ACCURATE CREATININE CLEARANCE IN PREDICTING GLOMERULAR FILTRATION RATE. ESTIMATED GFR IS NOT APPLICABLE FOR DIALYSIS PATIENTS. Specimen slightly ictericU/S, ABDOMINAL, [id number] 23:49:00Abdomen limited area? Add comment if clarification [...] [place] Verified Date/Time: 08/25/2018 23:49:36 Reading Location: [facility] C013Y CT Body Reading Room POCT-GLUCOSE [id number] 23:16:00 Test Item Value Reference Range Comments POC-GLUCOSE METER (BEAKER) 89 mg/dL 70-110 TESTED AT [facility] [address] [facility] (test vjpw=8565) [facility] [address] COMPREHENSIVE METABOLIC [id number] 21:15:00 Test Item Value Reference Range Comments TOTAL PROTEIN (BEAKER) 5.4 gm/dL 6.0-8.3 (test vpjh=786) ALBUMIN (BEAKER) (test 3.1 g/dL 3.5-5.0 qoko=7218) ALKALINE PHOSPHATASE 164 U/L 40-150 (BEAKER) (test hwel=493) BILIRUBIN TOTAL (BEAKER) 3.1 mg/dL 0.2-1.2 (test jqxj=423) SODIUM (BEAKER) (test 116 meq/L 136-145 dcqk=934) POTASSIUM (BEAKER) (test 5.0 meq/L 3.5-5.1 ctbz=499) CHLORIDE (BEAKER) (test 87 meq/L 98-107 himj=043) CO2 (BEAKER) (test 22 meq/L 22-29 olos=138) BLOOD UREA NITROGEN 38 mg/dL 7-21 (BEAKER) (test hzkw=322) CREATININE (BEAKER) (test 1.52 mg/dL 0.57-1.25 zvyp=465) GLUCOSE RANDOM (BEAKER) 67 mg/dL 70-105 (test dttp=151) CALCIUM (BEAKER) (test 9.1 mg/dL 8.4-10.2 aryq=676) AST (SGOT) (BEAKER) (test 30 U/L 5-34 fpsj=584) ALT (SGPT) (BEAKER) (test 10 U/L 6-55 qjhm=117) EGFR (BEAKER) (test 48 mL/min/1.73 sq m ESTIMATED GFR IS NOT bghw=5636) ACCURATE CREATININE CLEARANCE IN PREDICTING GLOMERULAR FILTRATION RATE. ESTIMATED GFR IS NOT APPLICABLE FOR DIALYSIS PATIENTS. Recheck and call Dr. Solorio with results [phone] slightly ictericBASIC METABOLIC [id number] 17:36:00 Test Item Value Reference Range Comments SODIUM (BEAKER) (test 119 meq/L 136-145 szgt=527) POTASSIUM (BEAKER) (test 5.0 meq/L 3.5-5.1 khwq=016) CHLORIDE (BEAKER) (test 89 meq/L 98-107 uoto=874) CO2 (BEAKER) (test 22 meq/L 22-29 yumf=612) BLOOD UREA NITROGEN 38 mg/dL 7-21 (BEAKER) (test fcmk=328) CREATININE (BEAKER) (test 1.50 mg/dL 0.57-1.25 ihjw=849) GLUCOSE RANDOM (BEAKER) 70 mg/dL 70-105 (test ahfu=320) CALCIUM (BEAKER) (test 8.9 mg/dL 8.4-10.2 xlca=426) EGFR (BEAKER) (test 49 mL/min/1.73 sq m ESTIMATED GFR IS NOT ifgl=4434) ACCURATE CREATININE CLEARANCE IN PREDICTING GLOMERULAR FILTRATION RATE. ESTIMATED GFR IS NOT APPLICABLE FOR DIALYSIS PATIENTS. Specimen slightly ictericCT, CHEST, WITH HIGH RESOLUTION, INTERSTITAL LUNG [id number] 17:36:00Reason for exam:->follow up for lung noduleFINAL [...] MDReport Verified Date/Time: 08/25/2018 17:36:51 Reading Location: [facility] B1 C013Y CT Body Reading Room CT, SPINE, LUMBAR, WO [id number] 17:06:00FINAL REPORT CT thoracic and lumbar spine [...] MDReport Verified Date/Time: 08/25/2018 17:06:21 Reading Location: [facility] Radiology Reading Room CT, SPINE, THORACIC, WO [id number] 17:06:00FINAL REPORT CT thoracic and lumbar spine [...] Verified Date/Time: 08/25/2018 17: 06:21 Reading Location: [facility] Radiology Reading Room EOSINOPHIL SMEAR, [id number] 16:40:00 Test Item Value Reference Range Comments EOSINOPHIL SMEAR, URINE (BEAKER) (test No EOS seen No EOS seen vbks=8046) SODIUM, RANDOM [id number] 15:13:00 Test Item Value Reference Range Comments SODIUM URINE (BEAKER) (test jwgh=433) < meq/L Reference Range: No NormalsCOMPREHENSIVE METABOLIC [id number] 15:12:00 Test Item Value Reference Range Comments TOTAL PROTEIN (BEAKER) 5.0 gm/dL 6.0-8.3 (test txqi=116) ALBUMIN (BEAKER) (test 2.9 g/dL 3.5-5.0 lnmh=6635) ALKALINE PHOSPHATASE 154 U/L 40-150 (BEAKER) (test nalw=453) BILIRUBIN TOTAL (BEAKER) 3.1 mg/dL 0.2-1.2 (test izwn=076) SODIUM (BEAKER) (test 116 meq/L 136-145 rqjk=441) POTASSIUM (BEAKER) (test 4.8 meq/L 3.5-5.1 awrv=621) CHLORIDE (BEAKER) (test 87 meq/L 98-107 yqah=643) CO2 (BEAKER) (test 24 meq/L 22-29 qapu=336) BLOOD UREA NITROGEN 39 mg/dL 7-21 (BEAKER) (test lgwe=142) CREATININE (BEAKER) (test 1.53 mg/dL 0.57-1.25 gqop=747) GLUCOSE RANDOM (BEAKER) 67 mg/dL 70-105 (test ijiw=323) CALCIUM (BEAKER) (test 8.6 mg/dL 8.4-10.2 lpjn=510) AST (SGOT) (BEAKER) (test 24 U/L 5-34 mpmo=448) ALT (SGPT) (BEAKER) (test 11 U/L 6-55 xrus=139) EGFR (BEAKER) (test 48 mL/min/1.73 sq m ESTIMATED GFR IS NOT qjwx=3350) ACCURATE CREATININE CLEARANCE IN PREDICTING GLOMERULAR FILTRATION RATE. ESTIMATED GFR IS NOT APPLICABLE FOR DIALYSIS PATIENTS. Specimen slightly ictericPROTEIN, RANDOM [id number] 15:12:00 Test Item Value Reference Range Comments PROTEIN, URINE (BEAKER) (test leng=4011) < mg/dL 0-14 CREATININE, RANDOM [id number] 15:10:00 Test Item Value Reference Range Comments CREATININE URINE (BEAKER) (test ncmm=080) 75.0 mg/dL Reference Range: No NormalsURINALYSIS W/ [id number] 14:55:00 Test Item Value Reference Range Comments COLOR (BEAKER) (test nggk=935) Yellow CLARITY (BEAKER) (test rxvm=580) Hazy SPECIFIC GRAVITY UA (BEAKER) (test vngw=564) 1.009 1.001-1.035 PH UA (BEAKER) (test yzpy=909) 5.5 5.0-8.0 PROTEIN UA (BEAKER) (test khuj=086) Negative Negative GLUCOSE UA (BEAKER) (test elxg=909) Negative Negative KETONES UA (BEAKER) (test mvsp=838) Negative Negative BILIRUBIN UA (BEAKER) (test qgeg=445) Negative Negative BLOOD UA (BEAKER) (test gzew=433) Small Negative NITRITE UA (BEAKER) (test ygtm=341) Negative Negative LEUKOCYTE ESTERASE UA (BEAKER) (test sxbe=572) Negative Negative UROBILINOGEN UA (BEAKER) (test kuxv=017) 0.2 mg/dL 0.2-1.0 RBC UA (BEAKER) (test fgos=852) 20 /HPF WBC UA (BEAKER) (test fgwg=314) 27 /HPF SQUAMOUS EPITHELIAL (BEAKER) (test nstf=093) 18 /HPF SOURCE(BEAKER) (test ekct=8934) URINALYSIS W/ REFLEX URINE [id number] 14:47:00 Test Item Value Reference Range Comments COLOR (BEAKER) (test vnws=823) Yellow CLARITY (BEAKER) (test zzti=140) Hazy SPECIFIC GRAVITY UA (BEAKER) (test ryqd=308) 1.010 1.001-1.035 PH UA (BEAKER) (test hlxa=164) 5.5 5.0-8.0 PROTEIN UA (BEAKER) (test aolf=265) Negative Negative GLUCOSE UA (BEAKER) (test rmfd=502) Negative Negative KETONES UA (BEAKER) (test gptf=373) Negative Negative BILIRUBIN UA (BEAKER) (test semv=623) Negative Negative BLOOD UA (BEAKER) (test nouj=360) Small Negative NITRITE UA (BEAKER) (test mwjr=973) Negative Negative LEUKOCYTE ESTERASE UA (BEAKER) (test cpxd=249) Negative Negative UROBILINOGEN UA (BEAKER) (test jnsf=936) 0.2 mg/dL 0.2-1.0 RBC UA (BEAKER) (test oifz=736) 38 /HPF WBC UA (BEAKER) (test ijxh=712) 7 /HPF SQUAMOUS EPITHELIAL (BEAKER) (test whlh=967) 18 /HPF AMORPHOUS CRYSTALS (BEAKER) (test ierd=7220) Rare SOURCE(BEAKER) (test tuwr=9483) OSMOLALITY, [id number] 14:40:00 Test Item Value Reference Range Comments OSMOLALITY URINE (BEAKER) (test wirm=171) 284 mOsm/kg 40-1,400 [id number] 13:34:00 Test Item Value Reference Range Comments PROCALCITONIN (BEAKER) (test zhrl=8818) 0.25 ng/mL <0.05 SEPSIS RISK (ng/mL)Low: 0.05-0.50Intermediate: 0.51-2.00High: & gt;=2.01OSMOLALITY, [id number] 12:43:00 Test Item Value Reference Range Comments OSMOLALITY URINE (BEAKER) (test jsjf=105) 316 mOsm/kg 40-1,400 OSMOLALITY, [id number] 12:41:00 Test Item Value Reference Range Comments OSMOLALITY, SERUM (BEAKER) (test gsjf=988) 259 mOsm/kg 275-295 TSH/FREE T4 IF [id number] 11:36:00 Test Item Value Reference Range Comments THYROID STIMULATING HORMONE (BEAKER) (test 2.55 uIU/mL 0.35-4.94 ejjq=321) [id number] 11:34:00 Test Item Value Reference Range Comments CORTISOL, TOTAL (BEAKER) (test mefb=0778) 7.9 ug/dL 3.7-19.4 SODIUM, RANDOM [id number] 11:34:00 Test Item Value Reference Range Comments SODIUM URINE (BEAKER) (test yorc=157) < meq/L Reference Range: No NormalsBASIC METABOLIC [id number] 11:24:00 Test Item Value Reference Range Comments SODIUM (BEAKER) (test 113 meq/L 136-145 lyyo=146) POTASSIUM (BEAKER) (test 5.3 meq/L 3.5-5.1 xzmp=245) CHLORIDE (BEAKER) (test 86 meq/L 98-107 scyu=455) CO2 (BEAKER) (test 21 meq/L 22-29 dzwb=581) BLOOD UREA NITROGEN 39 mg/dL 7-21 (BEAKER) (test tetv=687) CREATININE (BEAKER) (test 1.57 mg/dL 0.57-1.25 dtfn=170) GLUCOSE RANDOM (BEAKER) 64 mg/dL 70-105 (test ceit=227) CALCIUM (BEAKER) (test 9.1 mg/dL 8.4-10.2 hjbv=331) EGFR (BEAKER) (test 46 mL/min/1.73 sq m ESTIMATED GFR IS NOT lkwe=2167) ACCURATE CREATININE CLEARANCE IN PREDICTING GLOMERULAR FILTRATION RATE. ESTIMATED GFR IS NOT APPLICABLE FOR DIALYSIS PATIENTS. Specimen slightly ictericURIC [id number] 11:21:00 Test Item Value Reference Range Comments URIC ACID (BEAKER) (test jwhf=066) 8.2 mg/dL 2.6-7.2 Specimen slightly ictericCREATININE, RANDOM [id number] 11:21:00 Test Item Value Reference Range Comments CREATININE URINE (BEAKER) (test yqhc=167) 81.9 mg/dL Reference Range: No NormalsPOTASSIUM, RANDOM [id number] 11:21:00 Test Item Value Reference Range Comments POTASSIUM URINE (BEAKER) (test irvs=310) 19.2 meq/L Reference Range: No NormalsCBC W/PLT COUNT & AUTO [id number] 10: 20:00 Test Item Value Reference Range Comments WHITE BLOOD CELL COUNT (BEAKER) (test suyw=808) 10.9 K/ L 3.5-10.5 RED BLOOD CELL COUNT (BEAKER) (test lacy=160) 2.46 M/ L 4.63-6.08 HEMOGLOBIN (BEAKER) (test rara=815) 7.9 GM/DL 13.7-17.5 HEMATOCRIT (BEAKER) (test irox=695) 22.2 % 40.1-51.0 MEAN CORPUSCULAR VOLUME (BEAKER) (test ikkn=496) 90.2 fL 79.0-92.2 MEAN CORPUSCULAR HEMOGLOBIN (BEAKER) (test 32.1 pg 25.7-32.2 ifil=411) MEAN CORPUSCULAR HEMOGLOBIN CONC (BEAKER) (test 35.6 GM/DL 32.3-36.5 ucsz=012) RED CELL DISTRIBUTION WIDTH (BEAKER) (test 14.2 % 11.6-14.4 belp=350) PLATELET COUNT (BEAKER) (test jxbr=010) 82 K/CU MM 150-450 MEAN PLATELET VOLUME (BEAKER) (test xmjp=610) 8.3 fL 9.4-12.4 NUCLEATED RED BLOOD CELLS (BEAKER) (test 0 /100 WBC 0-0 pmio=063) (CELLAVISION MANUAL DIFF)[id number] 10:20:00 Test Item Value Reference Range Comments NEUTROPHILS - REL (CELLAVISION)(BEAKER) (test 80 % ladi=5789) LYMPHOCYTES - REL (CELLAVISION)(BEAKER) (test 2 % uebz=7135) MONOCYTES - REL (CELLAVISION)(BEAKER) (test 6 % izke=2032) BANDS - REL (CELLAVISION)(BEAKER) (test 12 % 0-10 aaqs=6030) NEUTROPHILS - ABS (CELLAVISION)(BEAKER) (test 8.72 K/ul 1.78-5.38 usbj=2279) LYMPHOCYTES - ABS (CELLAVISION)(BEAKER) (test 0.22 K/ul 1.32-3.57 ybql=4539) MONOCYTES - ABS (CELLAVISION)(BEAKER) (test 0.65 K/uL 0.30-0.82 hsim=2857) BANDS - ABS (CELLAVISION)(BEAKER) (test 1.31 K/uL 0.00-0.80 zrbn=9998) TOTAL COUNTED (BEAKER) (test kihl=6491) 100 WBC MORPHOLOGY (BEAKER) (test qmee=117) Normal PLT MORPHOLOGY (BEAKER) (test gmyd=461) Normal POLYCHROMATOPHILLIC RBCS(BEAKER) (test wwtz=906) 2+ moderate ANISOCYTOSIS (BEAKER) (test jixq=887) 2+ moderate POIKILOCYTES (BEAKER) (test cxsc=480) 2+ moderate ARTIFACT (CELLAVISION)(BEAKER) (test klad=2465) Present PLATELET CONCENTRATION (CELLAVISION)(BEAKER) Decreased (test forf=6848) Received comment: User comments: Slide comments:COMPREHENSIVE METABOLIC [id number] 09:30:00 Test Item Value Reference Range Comments TOTAL PROTEIN (BEAKER) 5.2 gm/dL 6.0-8.3 (test nvfv=389) ALBUMIN (BEAKER) (test 3.0 g/dL 3.5-5.0 ruxc=0882) ALKALINE PHOSPHATASE 158 U/L 40-150 (BEAKER) (test emdl=135) BILIRUBIN TOTAL (BEAKER) 2.9 mg/dL 0.2-1.2 (test pcrb=353) SODIUM (BEAKER) (test 111 meq/L 136-145 xmvd=422) POTASSIUM (BEAKER) (test 5.5 meq/L 3.5-5.1 ooks=177) CHLORIDE (BEAKER) (test 87 meq/L 98-107 inaq=002) CO2 (BEAKER) (test 20 meq/L 22-29 afwz=424) BLOOD UREA NITROGEN 39 mg/dL 7-21 (BEAKER) (test ifth=689) CREATININE (BEAKER) (test 1.55 mg/dL 0.57-1.25 dgte=561) GLUCOSE RANDOM (BEAKER) 79 mg/dL 70-105 (test kmlt=662) CALCIUM (BEAKER) (test 9.0 mg/dL 8.4-10.2 sdkp=332) AST (SGOT) (BEAKER) (test 27 U/L 5-34 igvp=237) ALT (SGPT) (BEAKER) (test 9 U/L 6-55 qvhg=865) EGFR (BEAKER) (test 47 mL/min/1.73 sq m ESTIMATED GFR IS NOT xupw=3712) ACCURATE CREATININE CLEARANCE IN PREDICTING GLOMERULAR FILTRATION RATE. ESTIMATED GFR IS NOT APPLICABLE FOR DIALYSIS PATIENTS. Specimen slightly ictericLACTIC ACID, VENOUS, WHOLE [id number] 09:15:00 Test Item Value Reference Range Comments LACTATE BLOOD VENOUS (2) (BEAKER) (test 0.9 mmol/L 0.5-2.2 kfko=7181) Effective 02/28/2016: Units/Reference Range ChangeNew: 0.5-2.2 mmol/L Previous: 5 -20 mg/dLSpecimen slightly [id number] 09:01:00 Test Item Value Reference Range Comments AMMONIA (BEAKER) (test pmdl=894) 83 mol/L 18-72 PT/[id number] 08:54:00 Test Item Value Reference Range Comments PROTIME (BEAKER) (test itec=908) 21.4 seconds 11.7-14.7 INR (BEAKER) (test mpbh=797) 1.9 <=5.9 PARTIAL THROMBOPLASTIN TIME (BEAKER) (test 44.2 seconds 22.5-36.0 uauq=742) RECOMMENDED COUMADIN/WARFARIN INR THERAPY RANGESSTANDARD DOSE: 2.0 - 3.0 Includes: PROPHYLAXIS forvenous thrombosis, systemic embolization; TREATMENT for venous thrombosis and/or pulmonary embolus.HIGH RISK: Target INR is 2.5-3.5 for patients with mechanical heart valves.PROTHROMBIN [id number] 08:53: 00 Test Item Value Reference Range Comments PROTIME (BEAKER) (test vbdl=356) 21.4 seconds 11.7-14.7 INR (BEAKER) (test waac=962) 1.9 <=5.9 RECOMMENDED COUMADIN/WARFARIN INR THERAPY RANGESSTANDARD DOSE: 2.0 - 3.0 Includes: PROPHYLAXIS forvenous thrombosis, systemic embolization; TREATMENT for venous thrombosis and/or pulmonary embolus.HIGH RISK: Target INR is 2.5-3.5 for patients with mechanical heart valves.COMPREHENSIVE METABOLIC [id number] 13:54:00 Test Item Value Reference Range Comments TOTAL PROTEIN (BEAKER) 6.2 gm/dL 6.0-8.3 (test cbds=161) ALBUMIN (BEAKER) (test 3.4 g/dL 3.5-5.0 uoip=3090) ALKALINE PHOSPHATASE 190 U/L 40-150 (BEAKER) (test nqsv=271) BILIRUBIN TOTAL (BEAKER) 1.9 mg/dL 0.2-1.2 (test ajub=068) SODIUM (BEAKER) (test 125 meq/L 136-145 adkt=230) POTASSIUM (BEAKER) (test 5.0 meq/L 3.5-5.1 ycwi=687) CHLORIDE (BEAKER) (test 99 meq/L 98-107 owgn=097) CO2 (BEAKER) (test 19 meq/L 22-29 ospl=253) BLOOD UREA NITROGEN 36 mg/dL 7-21 (BEAKER) (test hpww=331) CREATININE (BEAKER) (test 1.65 mg/dL 0.57-1.25 spoz=634) GLUCOSE RANDOM (BEAKER) 133 mg/dL 70-105 (test tnuu=455) CALCIUM (BEAKER) (test 9.5 mg/dL 8.4-10.2 katl=918) AST (SGOT) (BEAKER) (test 23 U/L 5-34 onmm=189) ALT (SGPT) (BEAKER) (test 12 U/L 6-55 xrmr=397) EGFR (BEAKER) (test 44 mL/min/1.73 sq m ESTIMATED GFR IS NOT ahcb=2330) ACCURATE CREATININE CLEARANCE IN PREDICTING GLOMERULAR FILTRATION RATE. ESTIMATED GFR IS NOT APPLICABLE FOR DIALYSIS PATIENTS. BILIRUBIN, [id number] 13:54:00 Test Item Value Reference Range Comments BILIRUBIN DIRECT (BEAKER) (test idrp=841) 1.4 mg/dL 0.1-0.5 CBC W/PLT COUNT & AUTO [id number] 13:50:00 Test Item Value Reference Range Comments WHITE BLOOD CELL COUNT (BEAKER) (test ihgw=757) 6.8 K/ L 3.5-10.5 RED BLOOD CELL COUNT (BEAKER) (test ezxy=274) 3.01 M/ L 4.63-6.08 HEMOGLOBIN (BEAKER) (test blym=708) 9.5 GM/DL 13.7-17.5 HEMATOCRIT (BEAKER) (test nuaq=015) 28.3 % 40.1-51.0 MEAN CORPUSCULAR VOLUME (BEAKER) (test ijxe=519) 94.0 fL 79.0-92.2 MEAN CORPUSCULAR HEMOGLOBIN (BEAKER) (test 31.6 pg 25.7-32.2 pohm=925) MEAN CORPUSCULAR HEMOGLOBIN CONC (BEAKER) (test 33.6 GM/DL 32.3-36.5 dqry=611) RED CELL DISTRIBUTION WIDTH (BEAKER) (test 14.5 % 11.6-14.4 uklz=695) PLATELET COUNT (BEAKER) (test pxhv=357) 131 K/CU MM 150-450 MEAN PLATELET VOLUME (BEAKER) (test egiy=087) 9.0 fL 9.4-12.4 NUCLEATED RED BLOOD CELLS (BEAKER) (test 0 /100 WBC 0-0 okke=245) NEUTROPHILS RELATIVE PERCENT (BEAKER) (test 75 % mefq=068) LYMPHOCYTES RELATIVE PERCENT (BEAKER) (test 7 % excv=599) MONOCYTES RELATIVE PERCENT (BEAKER) (test 14 % xytm=912) EOSINOPHILS RELATIVE PERCENT (BEAKER) (test 2 % qbbc=628) BASOPHILS RELATIVE PERCENT (BEAKER) (test 0 % ligs=856) NEUTROPHILS ABSOLUTE COUNT (BEAKER) (test 5.11 K/ L 1.78-5.38 umeb=919) LYMPHOCYTES ABSOLUTE COUNT (BEAKER) (test 0.50 K/ L 1.32-3.57 qtxs=975) MONOCYTES ABSOLUTE COUNT (BEAKER) (test 0.94 K/ L 0.30-0.82 flgf=363) EOSINOPHILS ABSOLUTE COUNT (BEAKER) (test 0.12 K/ L 0.04-0.54 msgw=264) BASOPHILS ABSOLUTE COUNT (BEAKER) (test 0.03 K/ L 0.01-0.08 qkgh=390) IMMATURE GRANULOCYTES-RELATIVE PERCENT (BEAKER) 1 % 0-1 (test hhmo=3316) PROTHROMBIN [id number] 13:46:00 Test Item Value Reference Range Comments PROTIME (BEAKER) (test bwtp=462) 19.5 seconds 11.7-14.7 INR (BEAKER) (test fuuy=085) 1.7 <=5.9 RECOMMENDED COUMADIN/WARFARIN INR THERAPY RANGESSTANDARD DOSE: 2.0 - 3.0 Includes: PROPHYLAXIS forvenous thrombosis, systemic embolization; TREATMENT for venous thrombosis and/or pulmonary embolus.HIGH RISK: Target INR is 2.5-3.5 for patients with mechanical heart valves.BONE AND/OR JOINT IMAGING, WHOLE [id number] 16:45:00FINAL REPORT PROCEDURE: BONE SCAN, WHOLE BODY CPT CODE: [id number] INDICATION: L3 vertebral body lesion follow-up R91.1 [...] Verified Date/ Time: 08/05/2018 16:45:34 Reading Location: [address] Reading Room NIR, VERTEBROPLASTY THORACIC, [id number] 17:23:00Reason for exam:->T11, T12, L2 compression fracturesAddendum [...] Verified Date/Time: 06/04/2018 17:23:27 Reading Location : [address] Radiology Reading RoomAddendum EndsFINAL REPORT HISTORY: [...] Verified Date/Time: 06/03/2018 17:56:43 Reading Location : [place] [address] Angio Body Reading Room ALPHA FETOPROTEIN (AFP), TUMOR [id number] 15:20:00 Test Item Value Reference Range Comments ALPHA-FETOPROTEIN (BEAKER) (test oskh=4129) 2.2 ng/mL <10.0 COMPREHENSIVE METABOLIC [id number] 14:54:00 Test Item Value Reference Range Comments TOTAL PROTEIN (BEAKER) 6.5 gm/dL 6.0-8.3 (test obkd=895) ALBUMIN (BEAKER) (test 3.6 g/dL 3.5-5.0 ksla=3319) ALKALINE PHOSPHATASE 342 U/L 40-150 (BEAKER) (test wvmn=971) BILIRUBIN TOTAL (BEAKER) 4.2 mg/dL 0.2-1.2 (test clsw=328) SODIUM (BEAKER) (test 128 meq/L 136-145 siwi=054) POTASSIUM (BEAKER) (test 4.6 meq/L 3.5-5.1 zhhu=076) CHLORIDE (BEAKER) (test 100 meq/L 98-107 odfw=270) CO2 (BEAKER) (test 21 meq/L 22-29 qxnw=513) BLOOD UREA NITROGEN 21 mg/dL 7-21 (BEAKER) (test rjow=313) CREATININE (BEAKER) (test 1.37 mg/dL 0.57-1.25 qdtg=841) GLUCOSE RANDOM (BEAKER) 108 mg/dL 70-105 (test ubel=875) CALCIUM (BEAKER) (test 9.5 mg/dL 8.4-10.2 qcmd=896) AST (SGOT) (BEAKER) (test 25 U/L 5-34 iekk=336) ALT (SGPT) (BEAKER) (test 10 U/L 6-55 hmpk=011) EGFR (BEAKER) (test 54 mL/min/1.73 sq m ESTIMATED GFR IS NOT ibxz=4340) ACCURATE CREATININE CLEARANCE IN PREDICTING GLOMERULAR FILTRATION RATE. ESTIMATED GFR IS NOT APPLICABLE FOR DIALYSIS PATIENTS. Specimen slightly ictericBILIRUBIN, [id number] 14:54:00 Test Item Value Reference Range Comments BILIRUBIN DIRECT (BEAKER) (test vssc=662) 2.1 mg/dL 0.1-0.5 CBC W/PLT COUNT & AUTO [id number] 14:52:00 Test Item Value Reference Range Comments WHITE BLOOD CELL COUNT (BEAKER) (test juzm=236) 3.9 K/ L 3.5-10.5 RED BLOOD CELL COUNT (BEAKER) (test dqjb=893) 2.69 M/ L 4.63-6.08 HEMOGLOBIN (BEAKER) (test uoze=442) 9.1 GM/DL 13.7-17.5 HEMATOCRIT (BEAKER) (test uycd=391) 27.3 % 40.1-51.0 MEAN CORPUSCULAR VOLUME (BEAKER) (test ueps=060) 101.5 fL 79.0-92.2 MEAN CORPUSCULAR HEMOGLOBIN (BEAKER) (test 33.8 pg 25.7-32.2 rlso=389) MEAN CORPUSCULAR HEMOGLOBIN CONC (BEAKER) (test 33.3 GM/DL 32.3-36.5 hkab=381) RED CELL DISTRIBUTION WIDTH (BEAKER) (test 18.6 % 11.6-14.4 umle=373) PLATELET COUNT (BEAKER) (test rhnl=359) 71 K/CU MM 150-450 MEAN PLATELET VOLUME (BEAKER) (test uyne=067) 9.6 fL 9.4-12.4 NUCLEATED RED BLOOD CELLS (BEAKER) (test 0 /100 WBC 0-0 jrwk=448) NEUTROPHILS RELATIVE PERCENT (BEAKER) (test 62 % qfqe=803) LYMPHOCYTES RELATIVE PERCENT (BEAKER) (test 16 % zovj=105) MONOCYTES RELATIVE PERCENT (BEAKER) (test 17 % hjor=229) EOSINOPHILS RELATIVE PERCENT (BEAKER) (test 5 % cqgv=927) BASOPHILS RELATIVE PERCENT (BEAKER) (test 0 % kjmn=736) NEUTROPHILS ABSOLUTE COUNT (BEAKER) (test 2.41 K/ L 1.78-5.38 jfms=058) LYMPHOCYTES ABSOLUTE COUNT (BEAKER) (test 0.62 K/ L 1.32-3.57 becd=498) MONOCYTES ABSOLUTE COUNT (BEAKER) (test avgq=258) 0.65 K/ L 0.30-0.82 EOSINOPHILS ABSOLUTE COUNT (BEAKER) (test 0.20 K/ L 0.04-0.54 qfja=286) BASOPHILS ABSOLUTE COUNT (BEAKER) (test gkmi=947) 0.01 K/ L 0.01-0.08 IMMATURE GRANULOCYTES-RELATIVE PERCENT (BEAKER) 0 % 0-1 (test rxur=3192) PROTHROMBIN [id number] 14:50:00 Test Item Value Reference Range Comments PROTIME (BEAKER) (test npdw=260) 19.5 seconds 11.7-14.7 INR (BEAKER) (test slhu=412) 1.7 <=5.9 RECOMMENDED COUMADIN/WARFARIN INR THERAPY RANGESSTANDARD DOSE: 2.0 - 3.0 Includes: PROPHYLAXIS forvenous thrombosis, systemic embolization; TREATMENT for venous thrombosis and/or pulmonary embolus.HIGH RISK: Target INR is 2.5-3.5 for patients with mechanical heart valves.BODY FLUID CULTURE + GRAM [id number] 13:19:00 Test Item Value Reference Range Comments CULTURE (BEAKER) (test muus=0351) No growth GRAM STAIN RESULT (BEAKER) (test No WBCs woja=1944) GRAM STAIN RESULT (BEAKER) (test No organisms seen jrdo=07447) [id number] 17:36:00 Test Item Value Reference Range Comments SODIUM (BEAKER) (test pdkj=938) 133 meq/L 136-145 POTASSIUM (BEAKER) (test tffv=433) 3.2 meq/L 3.5-5.1 CHLORIDE (BEAKER) (test eber=777) 102 meq/L 98-107 CO2 (BEAKER) (test wjcb=292) 21 meq/L 22-29 [id number] 13:21:00 Test Item Value Reference Range Comments SODIUM (BEAKER) (test uihl=149) 134 meq/L 136-145 POTASSIUM (BEAKER) (test ytxs=293) 3.0 meq/L 3.5-5.1 CHLORIDE (BEAKER) (test pcbs=378) 103 meq/L 98-107 CO2 (BEAKER) (test wvtn=995) 22 meq/L 22-29 CALCIUM, [id number] 04:54:00 Test Item Value Reference Range Comments CALCIUM IONIZED (BEAKER) (test lban=238) 1.09 mmol/L 1.12-1.27 PH, BLOOD (BEAKER) (test lkdy=8729) 7.35 [id number] 04:04:00 Test Item Value Reference Range Comments PHOSPHORUS (BEAKER) (test vdyp=644) 2.4 mg/dL 2.3-4.7 [id number] 04:04:00 Test Item Value Reference Range Comments MAGNESIUM (BEAKER) (test qwvg=004) 2.0 mg/dL 1.6-2.6 HEPATIC FUNCTION [id number] 04:04:00 Test Item Value Reference Range Comments TOTAL PROTEIN (BEAKER) (test bpjq=923) 5.8 gm/dL 6.0-8.3 ALBUMIN (BEAKER) (test vtiq=0554) 4.1 g/dL 3.5-5.0 BILIRUBIN TOTAL (BEAKER) (test wyuo=645) 3.9 mg/dL 0.2-1.2 BILIRUBIN DIRECT (BEAKER) (test yovn=821) 2.0 mg/dL 0.1-0.5 ALKALINE PHOSPHATASE (BEAKER) (test qzyo=717) 123 U/L 40-150 AST (SGOT) (BEAKER) (test wolh=967) 14 U/L 5-34 ALT (SGPT) (BEAKER) (test ljjh=610) < U/L 6-55 Specimen slightly ictericCOMPREHENSIVE METABOLIC [id number] 04:04:00 Test Item Value Reference Range Comments TOTAL PROTEIN (BEAKER) 5.8 gm/dL 6.0-8.3 (test tffx=174) ALBUMIN (BEAKER) (test 4.1 g/dL 3.5-5.0 cvlh=9944) ALKALINE PHOSPHATASE 123 U/L 40-150 (BEAKER) (test dwkc=470) BILIRUBIN TOTAL (BEAKER) 3.9 mg/dL 0.2-1.2 (test ugmf=649) SODIUM (BEAKER) (test 135 meq/L 136-145 zbds=683) POTASSIUM (BEAKER) (test 2.9 meq/L 3.5-5.1 xcuj=318) CHLORIDE (BEAKER) (test 103 meq/L 98-107 wxcn=560) CO2 (BEAKER) (test 21 meq/L 22-29 doxb=685) BLOOD UREA NITROGEN 18 mg/dL 7-21 (BEAKER) (test hyej=968) CREATININE (BEAKER) (test 1.32 mg/dL 0.57-1.25 pbbl=476) GLUCOSE RANDOM (BEAKER) 126 mg/dL 70-105 (test xbmp=894) CALCIUM (BEAKER) (test 9.8 mg/dL 8.4-10.2 rqso=988) AST (SGOT) (BEAKER) (test 14 U/L 5-34 xnom=509) ALT (SGPT) (BEAKER) (test < U/L 6-55 tlnt=323) EGFR (BEAKER) (test 57 mL/min/1.73 sq m ESTIMATED GFR IS NOT ttrw=9065) ACCURATE CREATININE CLEARANCE IN PREDICTING GLOMERULAR FILTRATION RATE. ESTIMATED GFR IS NOT APPLICABLE FOR DIALYSIS PATIENTS. Specimen slightly ictericPROTHROMBIN [id number] 04:02:00 Test Item Value Reference Range Comments PROTIME (BEAKER) (test dhun=547) 25.1 seconds 11.7-14.7 INR (BEAKER) (test ehiq=570) 2.3 <=5.9 RECOMMENDED COUMADIN/WARFARIN INR THERAPY RANGESSTANDARD DOSE: 2.0 - 3.0 Includes: PROPHYLAXIS forvenous thrombosis, systemic embolization; TREATMENT for venous thrombosis and/or pulmonary embolus.HIGH RISK: Target INR is 2.5-3.5 for patients with mechanical heart valves.CBC W/PLT COUNT & AUTO [id number] 03:55:00 Test Item Value Reference Range Comments WHITE BLOOD CELL COUNT (BEAKER) (test ozmw=741) 3.6 K/ L 3.5-10.5 RED BLOOD CELL COUNT (BEAKER) (test hcsk=742) 2.48 M/ L 4.63-6.08 HEMOGLOBIN (BEAKER) (test tynz=194) 7.9 GM/DL 13.7-17.5 HEMATOCRIT (BEAKER) (test oonf=351) 23.7 % 40.1-51.0 MEAN CORPUSCULAR VOLUME (BEAKER) (test bkhr=918) 95.6 fL 79.0-92.2 MEAN CORPUSCULAR HEMOGLOBIN (BEAKER) (test 31.9 pg 25.7-32.2 zyqv=973) MEAN CORPUSCULAR HEMOGLOBIN CONC (BEAKER) (test 33.3 GM/DL 32.3-36.5 vuas=349) RED CELL DISTRIBUTION WIDTH (BEAKER) (test 18.8 % 11.6-14.4 nxnv=893) PLATELET COUNT (BEAKER) (test cewk=487) 38 K/CU MM 150-450 MEAN PLATELET VOLUME (BEAKER) (test muyz=325) 9.3 fL 9.4-12.4 NUCLEATED RED BLOOD CELLS (BEAKER) (test 0 /100 WBC 0-0 dyur=043) NEUTROPHILS RELATIVE PERCENT (BEAKER) (test 57 % uiam=475) LYMPHOCYTES RELATIVE PERCENT (BEAKER) (test 15 % qfuu=462) MONOCYTES RELATIVE PERCENT (BEAKER) (test 22 % bumb=397) EOSINOPHILS RELATIVE PERCENT (BEAKER) (test 4 % upgu=953) BASOPHILS RELATIVE PERCENT (BEAKER) (test 0 % sdgv=773) NEUTROPHILS ABSOLUTE COUNT (BEAKER) (test 2.09 K/ L 1.78-5.38 xjbo=597) LYMPHOCYTES ABSOLUTE COUNT (BEAKER) (test 0.54 K/ L 1.32-3.57 ggxk=936) MONOCYTES ABSOLUTE COUNT (BEAKER) (test yhse=820) 0.81 K/ L 0.30-0.82 EOSINOPHILS ABSOLUTE COUNT (BEAKER) (test 0.15 K/ L 0.04-0.54 pqgh=616) BASOPHILS ABSOLUTE COUNT (BEAKER) (test wjdm=032) 0.01 K/ L 0.01-0.08 IMMATURE GRANULOCYTES-RELATIVE PERCENT (BEAKER) 1 % 0-1 (test bafg=7758) [id number] 18:07:00 Test Item Value Reference Range Comments SODIUM (BEAKER) (test dcka=147) 132 meq/L 136-145 POTASSIUM (BEAKER) (test 2.9 meq/L 3.5-5.1 Specimen slightly hemolyzed mbqx=278) CHLORIDE (BEAKER) (test 101 meq/L 98-107 vwaa=176) CO2 (BEAKER) (test wjfn=815) 18 meq/L 22-29 LACTIC ACID, VENOUS, WHOLE [id number] 16:43:00 Test Item Value Reference Range Comments LACTATE BLOOD VENOUS (2) 1.6 mmol/L 0.5-2.2 Specimen slightly hemolyzed (BEAKER) (test jeec=3493) Effective 02/28/2016: Units/Reference Range ChangeNew: 0.5-2.2 mmol/L Previous: 5 -20 mg/dLSpecimen slightly ictericBODY FLUID CULTURE + GRAM [id number] 12: 08:00 Test Item Value Reference Range Comments CULTURE (BEAKER) (test rzxt=8681) No growth GRAM STAIN RESULT (BEAKER) (test <1+ WBCs lqya=6181) GRAM STAIN RESULT (BEAKER) (test No organisms seen fnxn=81847) [id number] 08:10:00 Test Item Value Reference Range Comments PHOSPHORUS (BEAKER) (test tujt=414) 2.8 mg/dL 2.3-4.7 [id number] 08:10:00 Test Item Value Reference Range Comments MAGNESIUM (BEAKER) (test yxxd=294) 2.2 mg/dL 1.6-2.6 COMPREHENSIVE METABOLIC [id number] 08:10:00 Test Item Value Reference Range Comments TOTAL PROTEIN (BEAKER) 6.2 gm/dL 6.0-8.3 (test gsxs=950) ALBUMIN (BEAKER) (test 4.4 g/dL 3.5-5.0 lfjm=9555) ALKALINE PHOSPHATASE 121 U/L 40-150 (BEAKER) (test jncc=312) BILIRUBIN TOTAL (BEAKER) 4.4 mg/dL 0.2-1.2 (test qtrt=007) SODIUM (BEAKER) (test 135 meq/L 136-145 qoid=008) POTASSIUM (BEAKER) (test 2.8 meq/L 3.5-5.1 mcoa=326) CHLORIDE (BEAKER) (test 102 meq/L 98-107 ryro=300) CO2 (BEAKER) (test 21 meq/L 22-29 fomc=133) BLOOD UREA NITROGEN 20 mg/dL 7-21 (BEAKER) (test ehuq=192) CREATININE (BEAKER) (test 1.34 mg/dL 0.57-1.25 envt=737) GLUCOSE RANDOM (BEAKER) 132 mg/dL 70-105 (test jsrr=887) CALCIUM (BEAKER) (test 10.0 mg/dL 8.4-10.2 gptv=153) AST (SGOT) (BEAKER) (test 16 U/L 5-34 umqk=001) ALT (SGPT) (BEAKER) (test 6 U/L 6-55 ilqs=073) EGFR (BEAKER) (test 56 mL/min/1.73 sq m ESTIMATED GFR IS NOT kskm=1788) ACCURATE CREATININE CLEARANCE IN PREDICTING GLOMERULAR FILTRATION RATE. ESTIMATED GFR IS NOT APPLICABLE FOR DIALYSIS PATIENTS. Specimen slightly ictericHEPATIC FUNCTION [id number] 08:10:00 Test Item Value Reference Range Comments TOTAL PROTEIN (BEAKER) (test asps=203) 6.2 gm/dL 6.0-8.3 ALBUMIN (BEAKER) (test ixwe=8509) 4.4 g/dL 3.5-5.0 BILIRUBIN TOTAL (BEAKER) (test jdat=991) 4.4 mg/dL 0.2-1.2 BILIRUBIN DIRECT (BEAKER) (test shmo=887) 1.9 mg/dL 0.1-0.5 ALKALINE PHOSPHATASE (BEAKER) (test uyqf=807) 121 U/L 40-150 AST (SGOT) (BEAKER) (test uiqk=322) 16 U/L 5-34 ALT (SGPT) (BEAKER) (test tgdq=591) 6 U/L 6-55 Specimen slightly ictericCALCIUM, [id number] 07:20:00 Test Item Value Reference Range Comments CALCIUM IONIZED (BEAKER) (test liyt=615) 1.01 mmol/L 1.12-1.27 PH, BLOOD (BEAKER) (test wiic=4417) 7.49 CBC W/PLT COUNT & AUTO [id number] 06:59:00 Test Item Value Reference Range Comments WHITE BLOOD CELL COUNT (BEAKER) (test akvo=293) 4.1 K/ L 3.5-10.5 RED BLOOD CELL COUNT (BEAKER) (test luux=197) 2.62 M/ L 4.63-6.08 HEMOGLOBIN (BEAKER) (test wsff=100) 8.2 GM/DL 13.7-17.5 HEMATOCRIT (BEAKER) (test spro=204) 24.9 % 40.1-51.0 MEAN CORPUSCULAR VOLUME (BEAKER) (test oklm=242) 95.0 fL 79.0-92.2 MEAN CORPUSCULAR HEMOGLOBIN (BEAKER) (test 31.3 pg 25.7-32.2 zymo=963) MEAN CORPUSCULAR HEMOGLOBIN CONC (BEAKER) (test 32.9 GM/DL 32.3-36.5 dbyz=068) RED CELL DISTRIBUTION WIDTH (BEAKER) (test 18.6 % 11.6-14.4 tcsi=898) PLATELET COUNT (BEAKER) (test vyas=749) 38 K/CU MM 150-450 MEAN PLATELET VOLUME (BEAKER) (test vnko=957) 9.3 fL 9.4-12.4 NUCLEATED RED BLOOD CELLS (BEAKER) (test 0 /100 WBC 0-0 lsua=077) NEUTROPHILS RELATIVE PERCENT (BEAKER) (test 66 % gnkt=299) LYMPHOCYTES RELATIVE PERCENT (BEAKER) (test 12 % pgsf=153) MONOCYTES RELATIVE PERCENT (BEAKER) (test 18 % apzt=279) EOSINOPHILS RELATIVE PERCENT (BEAKER) (test 3 % ezmv=715) BASOPHILS RELATIVE PERCENT (BEAKER) (test 1 % xanm=913) NEUTROPHILS ABSOLUTE COUNT (BEAKER) (test 2.74 K/ L 1.78-5.38 evrc=350) LYMPHOCYTES ABSOLUTE COUNT (BEAKER) (test 0.49 K/ L 1.32-3.57 pxgy=005) MONOCYTES ABSOLUTE COUNT (BEAKER) (test ekmc=953) 0.75 K/ L 0.30-0.82 EOSINOPHILS ABSOLUTE COUNT (BEAKER) (test 0.11 K/ L 0.04-0.54 usec=242) BASOPHILS ABSOLUTE COUNT (BEAKER) (test tflj=409) 0.02 K/ L 0.01-0.08 IMMATURE GRANULOCYTES-RELATIVE PERCENT (BEAKER) 1 % 0-1 (test wpfa=1249) PROTHROMBIN [id number] 06:56:00 Test Item Value Reference Range Comments PROTIME (BEAKER) (test wyhr=741) 24.5 seconds 11.7-14.7 INR (BEAKER) (test mhgg=706) 2.2 <=5.9 RECOMMENDED COUMADIN/WARFARIN INR THERAPY RANGESSTANDARD DOSE: 2.0 - 3.0 Includes: PROPHYLAXIS forvenous thrombosis, systemic embolization; TREATMENT for venous thrombosis and/or pulmonary embolus.HIGH RISK: Target INR is 2.5-3.5 for patients with mechanical heart valves.BODY FLUID CELL COUNT WITH [id number] 18:36:00 Test Item Value Reference Range Comments APPEARANCE FLUID (BEAKER) (test zhll=577) Hazy Clear COLOR FLUID (BEAKER) (test bsyt=952) Yellow Colorless, Straw RBC FLUID (BEAKER) (test hzow=835) 2000 /cu mm <=1 ADJUSTED WBC FLUID (BEAKER) (test kuqv=0295) 96 /cu mm <=5 LINING CELLS (BEAKER) (test xfqf=1148) 2 /cu mm <=1 NEUTROPHILS FLUID (BEAKER) (test klnz=3420) 4 % LYMPHS FLUID (BEAKER) (test zwrm=538) 11 % MONO/MACROPHAGE FLUID (BEAKER) (test fmei=543) 85 % EOSINOPHILS FLUID (BEAKER) (test vnzt=247) 0 % BASO FLUID (BEAKER) (test quvr=057) 0 % CONTAINER BODY FLUID (BEAKER) (test rohh=4057) EDTA Tube U/S, [id number] 12:49:00Limit to 4L due to AKIReason for exam:-> ascitesFINAL REPORT Indication: Ascites. Technique: Ultrasound guided paracentesis. Findings:Preliminary ultrasound confirms ascites. A safe window was identified in the midline (suprapubic). The procedure was explained to the patient and informed consent was signed. The skin was marked and prepped in standard sterile fashion. 2% lidocaine was used for local anesthesia. A 5 Burmese needle catheter system was advanced into the peritoneal space. 3300 cc clear yellow fluid was taken off.Sample of the fluid was sent to the laboratory. Patient tolerated the procedure well. Impression: Ultrasound guided paracentesis. Signed: Aristeo Xiong [facility] CENTEReport Verified Date/ Time: 05/13/2018 12:49:12 Reading Location: [facility] [id number] Ultrasound Reading Room 12: 49 PMCALCIUM, [id number] 05:29:00 Test Item Value Reference Range Comments CALCIUM IONIZED (BEAKER) (test cmpq=619) 1.10 mmol/L 1.12-1.27 PH, BLOOD (BEAKER) (test jlbu=1570) 7.35 B-TYPE NATRIURETIC FACTOR (BNP)2018-05-13 04:48:00 Test Item Value Reference Range Comments B-TYPE NATRIURETIC PEPTIDE (BEAKER) (test 274 pg/mL 0-100 qocy=794) [id number] 04:44:00 Test Item Value Reference Range Comments PHOSPHORUS (BEAKER) (test dsfd=395) 3.0 mg/dL 2.3-4.7 [id number] 04:44:00 Test Item Value Reference Range Comments MAGNESIUM (BEAKER) (test sszs=750) 2.0 mg/dL 1.6-2.6 COMPREHENSIVE METABOLIC [id number] 04:44:00 Test Item Value Reference Range Comments TOTAL PROTEIN (BEAKER) 6.2 gm/dL 6.0-8.3 (test zdpc=949) ALBUMIN (BEAKER) (test 4.3 g/dL 3.5-5.0 mddt=2848) ALKALINE PHOSPHATASE 134 U/L 40-150 (BEAKER) (test tuzp=773) BILIRUBIN TOTAL (BEAKER) 4.4 mg/dL 0.2-1.2 (test bjma=825) SODIUM (BEAKER) (test 131 meq/L 136-145 srhp=963) POTASSIUM (BEAKER) (test 3.7 meq/L 3.5-5.1 owzx=825) CHLORIDE (BEAKER) (test 96 meq/L 98-107 fkln=439) CO2 (BEAKER) (test 26 meq/L 22-29 ocdv=316) BLOOD UREA NITROGEN 20 mg/dL 7-21 (BEAKER) (test qnyb=479) CREATININE (BEAKER) (test 1.60 mg/dL 0.57-1.25 rbwu=952) GLUCOSE RANDOM (BEAKER) 149 mg/dL 70-105 (test avgv=845) CALCIUM (BEAKER) (test 10.0 mg/dL 8.4-10.2 qlfl=175) AST (SGOT) (BEAKER) (test 18 U/L 5-34 kxzt=528) ALT (SGPT) (BEAKER) (test 7 U/L 6-55 hlxb=267) EGFR (BEAKER) (test 46 mL/min/1.73 sq m ESTIMATED GFR IS NOT lxrq=5686) ACCURATE CREATININE CLEARANCE IN PREDICTING GLOMERULAR FILTRATION RATE. ESTIMATED GFR IS NOT APPLICABLE FOR DIALYSIS PATIENTS. Specimen slightly ictericHEPATIC FUNCTION [id number] 04:44:00 Test Item Value Reference Range Comments TOTAL PROTEIN (BEAKER) (test hfzl=422) 6.2 gm/dL 6.0-8.3 ALBUMIN (BEAKER) (test jtrs=2980) 4.3 g/dL 3.5-5.0 BILIRUBIN TOTAL (BEAKER) (test fnoc=566) 4.4 mg/dL 0.2-1.2 BILIRUBIN DIRECT (BEAKER) (test xkzr=912) 2.4 mg/dL 0.1-0.5 ALKALINE PHOSPHATASE (BEAKER) (test uqih=227) 134 U/L 40-150 AST (SGOT) (BEAKER) (test eauf=792) 18 U/L 5-34 ALT (SGPT) (BEAKER) (test zcge=535) 7 U/L 6-55 Specimen slightly ictericPROTHROMBIN [id number] 04:30:00 Test Item Value Reference Range Comments PROTIME (BEAKER) (test pmkk=619) 23.8 seconds 11.7-14.7 INR (BEAKER) (test xjnz=868) 2.1 <=5.9 RECOMMENDED COUMADIN/WARFARIN INR THERAPY RANGESSTANDARD DOSE: 2.0 - 3.0 Includes: PROPHYLAXIS forvenous thrombosis, systemic embolization; TREATMENT for venous thrombosis and/or pulmonary embolus.HIGH RISK: Target INR is 2.5-3.5 for patients with mechanical heart valves.CBC W/PLT COUNT & AUTO [id number] 04:19:00 Test Item Value Reference Range Comments WHITE BLOOD CELL COUNT (BEAKER) (test typb=934) 4.0 K/ L 3.5-10.5 RED BLOOD CELL COUNT (BEAKER) (test xfqq=918) 2.60 M/ L 4.63-6.08 HEMOGLOBIN (BEAKER) (test adlw=271) 8.2 GM/DL 13.7-17.5 HEMATOCRIT (BEAKER) (test unup=524) 24.6 % 40.1-51.0 MEAN CORPUSCULAR VOLUME (BEAKER) (test ighs=851) 94.6 fL 79.0-92.2 MEAN CORPUSCULAR HEMOGLOBIN (BEAKER) (test 31.5 pg 25.7-32.2 yymw=470) MEAN CORPUSCULAR HEMOGLOBIN CONC (BEAKER) (test 33.3 GM/DL 32.3-36.5 vmfs=620) RED CELL DISTRIBUTION WIDTH (BEAKER) (test 18.1 % 11.6-14.4 uupj=112) PLATELET COUNT (BEAKER) (test oncr=041) 46 K/CU MM 150-450 MEAN PLATELET VOLUME (BEAKER) (test drjy=348) 9.1 fL 9.4-12.4 NUCLEATED RED BLOOD CELLS (BEAKER) (test 0 /100 WBC 0-0 inxq=383) NEUTROPHILS RELATIVE PERCENT (BEAKER) (test 62 % adxe=768) LYMPHOCYTES RELATIVE PERCENT (BEAKER) (test 13 % cbhz=006) MONOCYTES RELATIVE PERCENT (BEAKER) (test 21 % upzg=915) EOSINOPHILS RELATIVE PERCENT (BEAKER) (test 3 % rgro=423) BASOPHILS RELATIVE PERCENT (BEAKER) (test 0 % sxes=998) NEUTROPHILS ABSOLUTE COUNT (BEAKER) (test 2.49 K/ L 1.78-5.38 dhvr=510) LYMPHOCYTES ABSOLUTE COUNT (BEAKER) (test 0.53 K/ L 1.32-3.57 bnxa=128) MONOCYTES ABSOLUTE COUNT (BEAKER) (test vtvg=250) 0.86 K/ L 0.30-0.82 EOSINOPHILS ABSOLUTE COUNT (BEAKER) (test 0.10 K/ L 0.04-0.54 pxpa=136) BASOPHILS ABSOLUTE COUNT (BEAKER) (test svkc=786) 0.01 K/ L 0.01-0.08 IMMATURE GRANULOCYTES-RELATIVE PERCENT (BEAKER) 1 % 0-1 (test bpaj=6057) TISSUE [id number] 14:55:00Surgical Pathology Report Case: [id number] Authorizing Provider: Karina Rain MD Collected: 05/08/20181999 Ordering Location: [address] Received: 05/11/2018 0837 Service Pathologist: Jesús Craig MD Specimen: Bone L3 VERTEBRAL BODYBONE BIOPSY:BONE AND BONE MARROW, NEGATIVE FOR MALIGNANCY.SEE DIAGNOSTIC COMMENT. Signing Pathologist Direct Phone Line: [phone] signed by Jesús Craig MD on 05/12/2018 [...] representative. This case was discussed with Dr. Andera Mason, after school tutor.[id number], [id number], [id number], [id number] fracture of body thoracic vertebralL3 vertebral body [...] its performance characteristics determined by [facility], Pathology Laboratory. It has not been [...] clinical laboratory testing.RAD, CHEST, 1 VIEW, NON [id number] 13:56:00Reason for exam:->edemaShould this be performed at the bedside?->YesFINAL REPORT Chest one view compared to December 30 Discussion: Ill-defined bilateral airspace opacities are worse since the previous study although this may reflect a lesser inspiratory effort. No gross effusion or pneumothorax. Signed: Karina Pugh Verified Date/Time : 05/12/2018 13:56:44 Reading Location: [address] Consult Reading Room CALCIUM [id number] 06:58:00 Test Item Value Reference Range Comments CALCIUM IONIZED (BEAKER) (test ohey=723) 1.11 mmol/L 1.12-1.27 PH, BLOOD (BEAKER) (test emcn=1206) 7.36 [id number] 06:31:00 Test Item Value Reference Range Comments PHOSPHORUS (BEAKER) (test xrvv=880) 2.9 mg/dL 2.3-4.7 [id number] 06:31:00 Test Item Value Reference Range Comments MAGNESIUM (BEAKER) (test kjgl=754) 1.9 mg/dL 1.6-2.6 COMPREHENSIVE METABOLIC [id number] 06:31:00 Test Item Value Reference Range Comments TOTAL PROTEIN (BEAKER) 5.8 gm/dL 6.0-8.3 (test ndkz=256) ALBUMIN (BEAKER) (test 4.0 g/dL 3.5-5.0 ggoe=7966) ALKALINE PHOSPHATASE 124 U/L 40-150 (BEAKER) (test fokk=262) BILIRUBIN TOTAL (BEAKER) 4.3 mg/dL 0.2-1.2 (test peqq=547) SODIUM (BEAKER) (test 128 meq/L 136-145 jfud=875) POTASSIUM (BEAKER) (test 3.9 meq/L 3.5-5.1 dbcv=925) CHLORIDE (BEAKER) (test 92 meq/L 98-107 xyqb=373) CO2 (BEAKER) (test 26 meq/L 22-29 leda=452) BLOOD UREA NITROGEN 21 mg/dL 7-21 (BEAKER) (test otde=420) CREATININE (BEAKER) (test 1.54 mg/dL 0.57-1.25 pxfc=524) GLUCOSE RANDOM (BEAKER) 113 mg/dL 70-105 (test qgxn=500) CALCIUM (BEAKER) (test 9.5 mg/dL 8.4-10.2 dzvc=468) AST (SGOT) (BEAKER) (test 16 U/L 5-34 knir=559) ALT (SGPT) (BEAKER) (test 6 U/L 6-55 zipo=928) EGFR (BEAKER) (test 48 mL/min/1.73 sq m ESTIMATED GFR IS NOT nqfp=3553) ACCURATE CREATININE CLEARANCE IN PREDICTING GLOMERULAR FILTRATION RATE. ESTIMATED GFR IS NOT APPLICABLE FOR DIALYSIS PATIENTS. Specimen slightly ictericHEPATIC FUNCTION [id number] 06:31:00 Test Item Value Reference Range Comments TOTAL PROTEIN (BEAKER) (test irms=474) 5.8 gm/dL 6.0-8.3 ALBUMIN (BEAKER) (test ellk=1769) 4.0 g/dL 3.5-5.0 BILIRUBIN TOTAL (BEAKER) (test xmfm=748) 4.3 mg/dL 0.2-1.2 BILIRUBIN DIRECT (BEAKER) (test iyxi=355) 2.3 mg/dL 0.1-0.5 ALKALINE PHOSPHATASE (BEAKER) (test gzkw=449) 124 U/L 40-150 AST (SGOT) (BEAKER) (test rjaz=215) 16 U/L 5-34 ALT (SGPT) (BEAKER) (test kwhj=068) 6 U/L 6-55 Specimen slightly ictericPROTHROMBIN [id number] 06:16:00 Test Item Value Reference Range Comments PROTIME (BEAKER) (test wiqc=430) 22.3 seconds 11.7-14.7 INR (BEAKER) (test vhlv=066) 2.0 <=5.9 RECOMMENDED COUMADIN/WARFARIN INR THERAPY RANGESSTANDARD DOSE: 2.0 - 3.0 Includes: PROPHYLAXIS forvenous thrombosis, systemic embolization; TREATMENT for venous thrombosis and/or pulmonary embolus.HIGH RISK: Target INR is 2.5-3.5 for patients with mechanical heart valves.CBC W/PLT COUNT & AUTO [id number] 06:00:00 Test Item Value Reference Range Comments WHITE BLOOD CELL COUNT (BEAKER) (test deor=633) 4.3 K/ L 3.5-10.5 RED BLOOD CELL COUNT (BEAKER) (test iowt=448) 2.68 M/ L 4.63-6.08 HEMOGLOBIN (BEAKER) (test jbhj=621) 8.3 GM/DL 13.7-17.5 HEMATOCRIT (BEAKER) (test hvle=754) 25.0 % 40.1-51.0 MEAN CORPUSCULAR VOLUME (BEAKER) (test uvsn=337) 93.3 fL 79.0-92.2 MEAN CORPUSCULAR HEMOGLOBIN (BEAKER) (test 31.0 pg 25.7-32.2 rone=119) MEAN CORPUSCULAR HEMOGLOBIN CONC (BEAKER) (test 33.2 GM/DL 32.3-36.5 bcau=833) RED CELL DISTRIBUTION WIDTH (BEAKER) (test 17.4 % 11.6-14.4 ergo=441) PLATELET COUNT (BEAKER) (test yaqb=105) 57 K/CU MM 150-450 MEAN PLATELET VOLUME (BEAKER) (test ctcx=043) 9.3 fL 9.4-12.4 NUCLEATED RED BLOOD CELLS (BEAKER) (test 0 /100 WBC 0-0 snbe=362) NEUTROPHILS RELATIVE PERCENT (BEAKER) (test 61 % mldb=890) LYMPHOCYTES RELATIVE PERCENT (BEAKER) (test 14 % ykow=929) MONOCYTES RELATIVE PERCENT (BEAKER) (test 17 % cwvd=191) EOSINOPHILS RELATIVE PERCENT (BEAKER) (test 7 % eywf=690) BASOPHILS RELATIVE PERCENT (BEAKER) (test 1 % vkcq=421) NEUTROPHILS ABSOLUTE COUNT (BEAKER) (test 2.62 K/ L 1.78-5.38 nnmb=145) LYMPHOCYTES ABSOLUTE COUNT (BEAKER) (test 0.59 K/ L 1.32-3.57 vrcc=775) MONOCYTES ABSOLUTE COUNT (BEAKER) (test bmnb=666) 0.73 K/ L 0.30-0.82 EOSINOPHILS ABSOLUTE COUNT (BEAKER) (test 0.29 K/ L 0.04-0.54 fejy=260) BASOPHILS ABSOLUTE COUNT (BEAKER) (test qlne=114) 0.02 K/ L 0.01-0.08 IMMATURE GRANULOCYTES-RELATIVE PERCENT (BEAKER) 1 % 0-1 (test five=6945) BLOOD [id number] 00:00:00 Test Item Value Reference Range Comments CULTURE (BEAKER) (test qdva=2821) No growth in 5 days BLOOD [id number] 00:00:00 Test Item Value Reference Range Comments CULTURE (BEAKER) (test mkss=7454) No growth in 5 days OSMOLALITY, [id number] 18:16:00 Test Item Value Reference Range Comments OSMOLALITY URINE (BEAKER) (test plvv=824) 312 mOsm/kg 40-1400 BODY FLUID CELL COUNT WITH [id number] 17:17:00 Test Item Value Reference Range Comments APPEARANCE FLUID (BEAKER) (test tjhq=482) Clear Clear COLOR FLUID (BEAKER) (test jhcr=686) Yellow Colorless, Straw RBC FLUID (BEAKER) (test mwjf=312) 150 /cu mm <=1 ADJUSTED WBC FLUID (BEAKER) (test rbog=8512) 72 /cu mm <=5 LINING CELLS (BEAKER) (test urez=6639) 2 /cu mm <=1 NEUTROPHILS FLUID (BEAKER) (test ebxf=4421) 3 % LYMPHS FLUID (BEAKER) (test ibus=299) 28 % MONO/MACROPHAGE FLUID (BEAKER) (test jvtf=158) 68 % EOSINOPHILS FLUID (BEAKER) (test xrlz=936) 1 % BASO FLUID (BEAKER) (test voon=782) 0 % CONTAINER BODY FLUID (BEAKER) (test rvkn=5695) EDTA Tube SODIUM, RANDOM [id number] 17:09:00 Test Item Value Reference Range Comments SODIUM URINE (BEAKER) (test uwfz=602) < meq/L Reference Range: No NormalsURINALYSIS W/ [id number] 17:08:00 Test Item Value Reference Range Comments COLOR (BEAKER) (test fdgo=840) Yellow CLARITY (BEAKER) (test hnky=572) Clear SPECIFIC GRAVITY UA (BEAKER) (test ulqv=931) 1.012 1.001-1.035 PH UA (BEAKER) (test zviu=945) 5.5 5.0-8.0 PROTEIN UA (BEAKER) (test nigk=172) Negative Negative GLUCOSE UA (BEAKER) (test ddbo=819) Negative Negative KETONES UA (BEAKER) (test mddy=907) Negative Negative BILIRUBIN UA (BEAKER) (test hejv=980) Negative Negative BLOOD UA (BEAKER) (test wgba=126) Negative Negative NITRITE UA (BEAKER) (test cvah=215) Negative Negative LEUKOCYTE ESTERASE UA (BEAKER) (test ekoa=672) Negative Negative UROBILINOGEN UA (BEAKER) (test itck=007) 2.0 mg/dL 0.2-1.0 RBC UA (BEAKER) (test jzrl=369) 0 /HPF WBC UA (BEAKER) (test ifjj=178) 1 /HPF MUCUS (BEAKER) (test mhvm=1165) Rare HYALINE CASTS (BEAKER) (test zdhi=429) 15 /LPF SOURCE(BEAKER) (test azvo=1734) CREATININE, RANDOM [id number] 17:05:00 Test Item Value Reference Range Comments CREATININE URINE (BEAKER) (test rugb=071) 116.1 mg/dL Reference Range: No NormalsPROTEIN, RANDOM [id number] 17:05:00 Test Item Value Reference Range Comments PROTEIN, URINE (BEAKER) (test rdfg=8776) 7 mg/dL 0-14 RAD, SPINE, THORACIC, 2 [id number] 13:53:00Reason for exam:->back pain, s/p kyphoplastyFINAL REPORT [...] disc space is relatively maintained. Signed: Aristeo XiongVascular Designs Verified Date/Time: 13:53:06 Reading Location: [facility] Reading Room RAD, SPINE, LUMBAR, 2 OR 3 [id number] 13:53:00Reason for exam:->back pain, s/p kyphoplastyFINAL REPORT [...] space is relatively maintained. Signed: Aristeo Xiong REVENTIVEstanVascular Designs Verified Date/Time: 13:53:06 Reading Location: [facility] Mammo Reading Room U/S, [id number] 12:52:00Limit to 4L due to AKIReason for exam:-> ascitesShould this be performed at the bedside?->NoFINAL REPORT Ultrasound guided paracentesis, 05/11/2018. Clinical History: Ascites. Sedation: None. Border Measurer And Cutter: Elle. Food Porter: None. Estimated Blood Loss: < 1 cc. [...] was achieved with 1% lidocaine, a 5 Burmese one-step catheter was advanced into the peritoneal cavity under ultrasound guidance. After completion of drainage, the catheter was removed. There was no evidence of complication. Patient Disposition: The patient was discharged from the ultrasound department after the paracentesis, in good condition. Impression: Successful ultrasound guided paracentesis. Signed: Perlita AlmeidaReport Verified Date/Time: 05/11/2018 12:52:57 Reading Location: [address] Ultrasound Reading Room MISCELLANEOUS LAB [id number] 10:45:00 Test Item Value Reference Range Comments SCAN RESULT (test avvo=[id number]) [id number] 07:31:00 Test Item Value Reference Range Comments PHOSPHORUS (BEAKER) (test zirv=828) 2.7 mg/dL 2.3-4.7 [id number] 07:31:00 Test Item Value Reference Range Comments MAGNESIUM (BEAKER) (test aymg=875) 1.8 mg/dL 1.6-2.6 COMPREHENSIVE METABOLIC [id number] 07:31:00 Test Item Value Reference Range Comments TOTAL PROTEIN (BEAKER) 5.5 gm/dL 6.0-8.3 (test ihxg=060) ALBUMIN (BEAKER) (test 3.5 g/dL 3.5-5.0 exce=0775) ALKALINE PHOSPHATASE 118 U/L 40-150 (BEAKER) (test mwfu=407) BILIRUBIN TOTAL (BEAKER) 5.1 mg/dL 0.2-1.2 (test gaak=610) SODIUM (BEAKER) (test 123 meq/L 136-145 huxa=635) POTASSIUM (BEAKER) (test 4.1 meq/L 3.5-5.1 ootm=686) CHLORIDE (BEAKER) (test 91 meq/L 98-107 wkyq=390) CO2 (BEAKER) (test 25 meq/L 22-29 ybyc=320) BLOOD UREA NITROGEN 21 mg/dL 7-21 (BEAKER) (test tqiq=351) CREATININE (BEAKER) (test 1.59 mg/dL 0.57-1.25 wnqp=614) GLUCOSE RANDOM (BEAKER) 121 mg/dL 70-105 (test ztzd=151) CALCIUM (BEAKER) (test 9.4 mg/dL 8.4-10.2 pubc=052) AST (SGOT) (BEAKER) (test 17 U/L 5-34 vkgo=137) ALT (SGPT) (BEAKER) (test 8 U/L 6-55 fuzc=289) EGFR (BEAKER) (test 46 mL/min/1.73 sq m ESTIMATED GFR IS NOT pgiq=0930) ACCURATE CREATININE CLEARANCE IN PREDICTING GLOMERULAR FILTRATION RATE. ESTIMATED GFR IS NOT APPLICABLE FOR DIALYSIS PATIENTS. Specimen moderately ictericHEPATIC FUNCTION [id number] 07:31:00 Test Item Value Reference Range Comments TOTAL PROTEIN (BEAKER) (test mgbl=757) 5.5 gm/dL 6.0-8.3 ALBUMIN (BEAKER) (test lgwx=2102) 3.5 g/dL 3.5-5.0 BILIRUBIN TOTAL (BEAKER) (test wbrk=679) 5.1 mg/dL 0.2-1.2 BILIRUBIN DIRECT (BEAKER) (test ptbf=921) 2.3 mg/dL 0.1-0.5 ALKALINE PHOSPHATASE (BEAKER) (test tkcy=167) 118 U/L 40-150 AST (SGOT) (BEAKER) (test vcyi=081) 17 U/L 5-34 ALT (SGPT) (BEAKER) (test asgf=809) 8 U/L 6-55 Specimen moderately ictericPROTHROMBIN [id number] 07:17:00 Test Item Value Reference Range Comments PROTIME (BEAKER) (test ghcj=800) 23.8 seconds 11.7-14.7 INR (BEAKER) (test hqgm=979) 2.1 <=5.9 RECOMMENDED COUMADIN/WARFARIN INR THERAPY RANGESSTANDARD DOSE: 2.0 - 3.0 Includes: PROPHYLAXIS forvenous thrombosis, systemic embolization; TREATMENT for venous thrombosis and/or pulmonary embolus.HIGH RISK: Target INR is 2.5-3.5 for patients with mechanical heart valves.CBC W/PLT COUNT & AUTO [id number] 07:15:00 Test Item Value Reference Range Comments WHITE BLOOD CELL COUNT (BEAKER) (test guqo=443) 4.4 K/ L 3.5-10.5 RED BLOOD CELL COUNT (BEAKER) (test xbkw=014) 2.52 M/ L 4.63-6.08 HEMOGLOBIN (BEAKER) (test nwta=227) 7.9 GM/DL 13.7-17.5 HEMATOCRIT (BEAKER) (test arxb=638) 23.7 % 40.1-51.0 MEAN CORPUSCULAR VOLUME (BEAKER) (test dxwl=680) 94.0 fL 79.0-92.2 MEAN CORPUSCULAR HEMOGLOBIN (BEAKER) (test 31.3 pg 25.7-32.2 pcus=243) MEAN CORPUSCULAR HEMOGLOBIN CONC (BEAKER) (test 33.3 GM/DL 32.3-36.5 fjhf=546) RED CELL DISTRIBUTION WIDTH (BEAKER) (test 17.6 % 11.6-14.4 rmgv=792) PLATELET COUNT (BEAKER) (test lqpc=693) 52 K/CU MM 150-450 MEAN PLATELET VOLUME (BEAKER) (test yulh=135) 9.2 fL 9.4-12.4 NUCLEATED RED BLOOD CELLS (BEAKER) (test 0 /100 WBC 0-0 cifo=100) NEUTROPHILS RELATIVE PERCENT (BEAKER) (test 62 % neqc=941) LYMPHOCYTES RELATIVE PERCENT (BEAKER) (test 10 % tcqe=930) MONOCYTES RELATIVE PERCENT (BEAKER) (test 19 % dodj=682) EOSINOPHILS RELATIVE PERCENT (BEAKER) (test 8 % gcye=257) BASOPHILS RELATIVE PERCENT (BEAKER) (test 0 % rkhj=237) NEUTROPHILS ABSOLUTE COUNT (BEAKER) (test 2.72 K/ L 1.78-5.38 ekqz=650) LYMPHOCYTES ABSOLUTE COUNT (BEAKER) (test 0.42 K/ L 1.32-3.57 xcne=375) MONOCYTES ABSOLUTE COUNT (BEAKER) (test ljip=657) 0.84 K/ L 0.30-0.82 EOSINOPHILS ABSOLUTE COUNT (BEAKER) (test 0.34 K/ L 0.04-0.54 ddoo=246) BASOPHILS ABSOLUTE COUNT (BEAKER) (test zxag=552) 0.00 K/ L 0.01-0.08 IMMATURE GRANULOCYTES-RELATIVE PERCENT (BEAKER) 1 % 0-1 (test abzf=1766) CALCIUM, [id number] 07:09:00 Test Item Value Reference Range Comments CALCIUM IONIZED (BEAKER) (test podl=128) 1.09 mmol/L 1.12-1.27 PH, BLOOD (BEAKER) (test svmf=6004) 7.36 BASIC METABOLIC [id number] 17:49:00 Test Item Value Reference Range Comments SODIUM (BEAKER) (test 124 meq/L 136-145 udqo=135) POTASSIUM (BEAKER) (test 3.8 meq/L 3.5-5.1 wmnn=040) CHLORIDE (BEAKER) (test 91 meq/L 98-107 effr=350) CO2 (BEAKER) (test 22 meq/L 22-29 zsdb=357) BLOOD UREA NITROGEN 19 mg/dL 7-21 (BEAKER) (test yqlh=522) CREATININE (BEAKER) (test 1.49 mg/dL 0.57-1.25 gzod=070) GLUCOSE RANDOM (BEAKER) 105 mg/dL 70-105 (test hzrn=999) CALCIUM (BEAKER) (test 9.3 mg/dL 8.4-10.2 xaig=867) EGFR (BEAKER) (test 50 mL/min/1.73 sq m ESTIMATED GFR IS NOT nsgm=8899) ACCURATE CREATININE CLEARANCE IN PREDICTING GLOMERULAR FILTRATION RATE. ESTIMATED GFR IS NOT APPLICABLE FOR DIALYSIS PATIENTS. Call [id number] slightly ictericCALCIUM, [id number] 06:59:00 Test Item Value Reference Range Comments CALCIUM IONIZED (BEAKER) (test hbhv=015) 1.00 mmol/L 1.12-1.27 PH, BLOOD (BEAKER) (test bmgh=5842) 7.47 [id number] 05:42:00 Test Item Value Reference Range Comments PHOSPHORUS (BEAKER) (test iwbw=796) 2.7 mg/dL 2.3-4.7 [id number] 05:42:00 Test Item Value Reference Range Comments MAGNESIUM (BEAKER) (test oawp=111) 1.7 mg/dL 1.6-2.6 HEPATIC FUNCTION [id number] 05:42:00 Test Item Value Reference Range Comments TOTAL PROTEIN (BEAKER) (test azmh=334) 5.2 gm/dL 6.0-8.3 ALBUMIN (BEAKER) (test mytl=8513) 3.5 g/dL 3.5-5.0 BILIRUBIN TOTAL (BEAKER) (test glwl=421) 3.4 mg/dL 0.2-1.2 BILIRUBIN DIRECT (BEAKER) (test nddl=782) 1.8 mg/dL 0.1-0.5 ALKALINE PHOSPHATASE (BEAKER) (test oatj=583) 106 U/L 40-150 AST (SGOT) (BEAKER) (test idoj=548) 15 U/L 5-34 ALT (SGPT) (BEAKER) (test ipet=612) 7 U/L 6-55 Specimen slightly ictericPROTHROMBIN [id number] 05:22:00 Test Item Value Reference Range Comments PROTIME (BEAKER) (test pivs=030) 22.6 seconds 11.7-14.7 INR (BEAKER) (test xjfk=317) 2.0 <=5.9 RECOMMENDED COUMADIN/WARFARIN INR THERAPY RANGESSTANDARD DOSE: 2.0 - 3.0 Includes: PROPHYLAXIS forvenous thrombosis, systemic embolization; TREATMENT for venous thrombosis and/or pulmonary embolus.HIGH RISK: Target INR is 2.5-3.5 for patients with mechanical heart valves.CBC W/PLT COUNT & AUTO [id number] 05:10:00 Test Item Value Reference Range Comments WHITE BLOOD CELL COUNT (BEAKER) (test lbjq=485) 5.6 K/ L 3.5-10.5 RED BLOOD CELL COUNT (BEAKER) (test amiz=919) 2.09 M/ L 4.63-6.08 HEMOGLOBIN (BEAKER) (test eggk=693) 6.5 GM/DL 13.7-17.5 HEMATOCRIT (BEAKER) (test opge=909) 19.8 % 40.1-51.0 MEAN CORPUSCULAR VOLUME (BEAKER) (test hqnw=513) 94.7 fL 79.0-92.2 MEAN CORPUSCULAR HEMOGLOBIN (BEAKER) (test 31.1 pg 25.7-32.2 iagw=648) MEAN CORPUSCULAR HEMOGLOBIN CONC (BEAKER) (test 32.8 GM/DL 32.3-36.5 xvao=613) RED CELL DISTRIBUTION WIDTH (BEAKER) (test 17.3 % 11.6-14.4 rfzx=549) PLATELET COUNT (BEAKER) (test vlgw=347) 57 K/CU MM 150-450 MEAN PLATELET VOLUME (BEAKER) (test nlga=260) 8.9 fL 9.4-12.4 NUCLEATED RED BLOOD CELLS (BEAKER) (test 0 /100 WBC 0-0 htgp=211) NEUTROPHILS RELATIVE PERCENT (BEAKER) (test 71 % bnke=687) LYMPHOCYTES RELATIVE PERCENT (BEAKER) (test 9 % duav=375) MONOCYTES RELATIVE PERCENT (BEAKER) (test 16 % kzvr=630) EOSINOPHILS RELATIVE PERCENT (BEAKER) (test 3 % nkxf=253) BASOPHILS RELATIVE PERCENT (BEAKER) (test 0 % sqiq=511) NEUTROPHILS ABSOLUTE COUNT (BEAKER) (test 3.93 K/ L 1.78-5.38 wucb=353) LYMPHOCYTES ABSOLUTE COUNT (BEAKER) (test 0.52 K/ L 1.32-3.57 sbeh=310) MONOCYTES ABSOLUTE COUNT (BEAKER) (test szqy=728) 0.87 K/ L 0.30-0.82 EOSINOPHILS ABSOLUTE COUNT (BEAKER) (test 0.19 K/ L 0.04-0.54 ntjs=867) BASOPHILS ABSOLUTE COUNT (BEAKER) (test pzqm=621) 0.01 K/ L 0.01-0.08 IMMATURE GRANULOCYTES-RELATIVE PERCENT (BEAKER) 1 % 0-1 (test sjve=7648) HEPATIC FUNCTION [id number] 11:05:00 Test Item Value Reference Range Comments TOTAL PROTEIN (BEAKER) (test qpwy=443) 5.7 gm/dL 6.0-8.3 ALBUMIN (BEAKER) (test azep=2311) 3.9 g/dL 3.5-5.0 BILIRUBIN TOTAL (BEAKER) (test hzxp=866) 4.9 mg/dL 0.2-1.2 BILIRUBIN DIRECT (BEAKER) (test qvnc=933) 2.0 mg/dL 0.1-0.5 ALKALINE PHOSPHATASE (BEAKER) (test hqkb=524) 98 U/L 40-150 AST (SGOT) (BEAKER) (test wcko=300) 19 U/L 5-34 ALT (SGPT) (BEAKER) (test deel=561) 8 U/L 6-55 Specimen moderately ictericBASIC METABOLIC [id number] 10:06:00 Test Item Value Reference Range Comments SODIUM (BEAKER) (test 132 meq/L 136-145 serw=062) POTASSIUM (BEAKER) (test 5.0 meq/L 3.5-5.1 hoda=717) CHLORIDE (BEAKER) (test 97 meq/L 98-107 jcqz=625) CO2 (BEAKER) (test 25 meq/L 22-29 tujt=543) BLOOD UREA NITROGEN 17 mg/dL 7-21 (BEAKER) (test fexz=985) CREATININE (BEAKER) (test 1.33 mg/dL 0.57-1.25 ictd=310) GLUCOSE RANDOM (BEAKER) 181 mg/dL 70-105 (test vuyh=091) CALCIUM (BEAKER) (test 9.4 mg/dL 8.4-10.2 mxrh=545) EGFR (BEAKER) (test 56 mL/min/1.73 sq m ESTIMATED GFR IS NOT efiw=5546) ACCURATE CREATININE CLEARANCE IN PREDICTING GLOMERULAR FILTRATION RATE. ESTIMATED GFR IS NOT APPLICABLE FOR DIALYSIS PATIENTS. Specimen moderately ictericCBC W/PLT COUNT & AUTO [id number] 07: 45:00 Test Item Value Reference Range Comments WHITE BLOOD CELL COUNT (BEAKER) (test anzi=084) 3.4 K/ L 3.5-10.5 RED BLOOD CELL COUNT (BEAKER) (test ccwx=593) 2.26 M/ L 4.63-6.08 HEMOGLOBIN (BEAKER) (test chue=589) 7.0 GM/DL 13.7-17.5 HEMATOCRIT (BEAKER) (test gxgn=719) 21.6 % 40.1-51.0 MEAN CORPUSCULAR VOLUME (BEAKER) (test fizp=766) 95.6 fL 79.0-92.2 MEAN CORPUSCULAR HEMOGLOBIN (BEAKER) (test 31.0 pg 25.7-32.2 cyqo=094) MEAN CORPUSCULAR HEMOGLOBIN CONC (BEAKER) (test 32.4 GM/DL 32.3-36.5 exly=199) RED CELL DISTRIBUTION WIDTH (BEAKER) (test 17.3 % 11.6-14.4 dotx=452) PLATELET COUNT (BEAKER) (test xcfa=203) 66 K/CU MM 150-450 MEAN PLATELET VOLUME (BEAKER) (test rafv=221) 9.8 fL 9.4-12.4 NUCLEATED RED BLOOD CELLS (BEAKER) (test 0 /100 WBC 0-0 ppfa=005) NEUTROPHILS RELATIVE PERCENT (BEAKER) (test 87 % pwcb=506) LYMPHOCYTES RELATIVE PERCENT (BEAKER) (test 7 % zhxf=164) MONOCYTES RELATIVE PERCENT (BEAKER) (test 5 % jnvg=760) EOSINOPHILS RELATIVE PERCENT (BEAKER) (test 0 % iqwo=693) BASOPHILS RELATIVE PERCENT (BEAKER) (test 0 % yibk=388) NEUTROPHILS ABSOLUTE COUNT (BEAKER) (test 2.94 K/ L 1.78-5.38 srqi=427) LYMPHOCYTES ABSOLUTE COUNT (BEAKER) (test 0.23 K/ L 1.32-3.57 lhkr=952) MONOCYTES ABSOLUTE COUNT (BEAKER) (test ogdy=675) 0.17 K/ L 0.30-0.82 EOSINOPHILS ABSOLUTE COUNT (BEAKER) (test 0.00 K/ L 0.04-0.54 kcvm=424) BASOPHILS ABSOLUTE COUNT (BEAKER) (test unfc=975) 0.00 K/ L 0.01-0.08 IMMATURE GRANULOCYTES-RELATIVE PERCENT (BEAKER) 1 % 0-1 (test pjqr=8288) PROTHROMBIN [id number] 06:06:00 Test Item Value Reference Range Comments PROTIME (BEAKER) (test eajf=023) 19.1 seconds 11.7-14.7 INR (BEAKER) (test rhcv=500) 1.6 <=5.9 RECOMMENDED COUMADIN/WARFARIN INR THERAPY RANGESSTANDARD DOSE: 2.0 - 3.0 Includes: PROPHYLAXIS forvenous thrombosis, systemic embolization; TREATMENT for venous thrombosis and/or pulmonary embolus.HIGH RISK: Target INR is 2.5-3.5 for patients with mechanical heart valves.[id number] 15:35:00 Test Item Value Reference Range Comments PROTIME (BEAKER) (test sdkd=512) 20.3 seconds 11.7-14.7 INR (BEAKER) (test kqfk=605) 1.7 <=5.9 PARTIAL THROMBOPLASTIN TIME (BEAKER) (test 46.2 seconds 22.5-36.0 wmxg=203) RECOMMENDED COUMADIN/WARFARIN INR THERAPY RANGESSTANDARD DOSE: 2.0 - 3.0 Includes: PROPHYLAXIS forvenous thrombosis, systemic embolization; TREATMENT for venous thrombosis and/or pulmonary embolus.HIGH RISK: Target INR is 2.5-3.5 for patients with mechanical heart valves.30 minutes after administration of Ggopofq24 minutes after administration of KcentraPROTHROMBIN [id number] 15:33:00 Test Item Value Reference Range Comments PROTIME (BEAKER) (test vdul=489) 20.1 seconds 11.7-14.7 INR (BEAKER) (test vucc=459) 1.7 <=5.9 RECOMMENDED COUMADIN/WARFARIN INR THERAPY RANGESSTANDARD DOSE: 2.0 - 3.0 Includes: PROPHYLAXIS forvenous thrombosis, systemic embolization; TREATMENT for venous thrombosis and/or pulmonary embolus.HIGH RISK: Target INR is 2.5-3.5 for patients with mechanical heart valves.Please draw 30 mins after Kcentra doseBODY FLUID CULTURE + GRAM [id number] 11:29:00 Test Item Value Reference Range Comments CULTURE (BEAKER) (test illx=0847) No growth GRAM STAIN RESULT (BEAKER) (test <1+ WBCs vdbq=5258) GRAM STAIN RESULT (BEAKER) (test No organisms seen dzgd=35909) CT, [id number] 10:30:00FINAL REPORT HISTORY : r/o intra abdominal [...] MDReport Verified Date/Time: 05/08/2018 10:30:57 Reading Location: [facility] Diagnostic Imaging Reading Room - [place] [id number] 112 CBC W/PLT COUNT & AUTO [id number] 07:27:00 Test Item Value Reference Range Comments WHITE BLOOD CELL COUNT (BEAKER) (test qtgn=806) 3.1 K/ L 3.5-10.5 RED BLOOD CELL COUNT (BEAKER) (test lfvr=771) 2.27 M/ L 4.63-6.08 HEMOGLOBIN (BEAKER) (test gzbp=569) 7.1 GM/DL 13.7-17.5 HEMATOCRIT (BEAKER) (test gkck=121) 21.4 % 40.1-51.0 MEAN CORPUSCULAR VOLUME (BEAKER) (test uzak=727) 94.3 fL 79.0-92.2 MEAN CORPUSCULAR HEMOGLOBIN (BEAKER) (test 31.3 pg 25.7-32.2 onvs=355) MEAN CORPUSCULAR HEMOGLOBIN CONC (BEAKER) (test 33.2 GM/DL 32.3-36.5 cjmp=690) RED CELL DISTRIBUTION WIDTH (BEAKER) (test 17.5 % 11.6-14.4 dasx=057) PLATELET COUNT (BEAKER) (test wsuq=852) 43 K/CU MM 150-450 MEAN PLATELET VOLUME (BEAKER) (test pclu=836) 8.7 fL 9.4-12.4 NUCLEATED RED BLOOD CELLS (BEAKER) (test 0 /100 WBC 0-0 psiy=444) NEUTROPHILS RELATIVE PERCENT (BEAKER) (test 60 % msev=285) LYMPHOCYTES RELATIVE PERCENT (BEAKER) (test 16 % oydn=300) MONOCYTES RELATIVE PERCENT (BEAKER) (test 17 % uyvy=902) EOSINOPHILS RELATIVE PERCENT (BEAKER) (test 7 % mmbg=718) BASOPHILS RELATIVE PERCENT (BEAKER) (test 0 % akrk=267) NEUTROPHILS ABSOLUTE COUNT (BEAKER) (test 1.85 K/ L 1.78-5.38 xumr=560) LYMPHOCYTES ABSOLUTE COUNT (BEAKER) (test 0.48 K/ L 1.32-3.57 olsu=461) MONOCYTES ABSOLUTE COUNT (BEAKER) (test whlx=974) 0.54 K/ L 0.30-0.82 EOSINOPHILS ABSOLUTE COUNT (BEAKER) (test 0.22 K/ L 0.04-0.54 ktqm=546) BASOPHILS ABSOLUTE COUNT (BEAKER) (test tsdc=626) 0.00 K/ L 0.01-0.08 IMMATURE GRANULOCYTES-RELATIVE PERCENT (BEAKER) 0 % 0-1 (test nwxh=7207) CBC W/PLT COUNT & AUTO [id number] 07:26:00 Test Item Value Reference Range Comments WHITE BLOOD CELL COUNT (BEAKER) (test raxa=018) 2.9 K/ L 3.5-10.5 RED BLOOD CELL COUNT (BEAKER) (test nsfw=713) 2.25 M/ L 4.63-6.08 HEMOGLOBIN (BEAKER) (test ivrq=671) 7.1 GM/DL 13.7-17.5 HEMATOCRIT (BEAKER) (test ybuo=712) 21.4 % 40.1-51.0 MEAN CORPUSCULAR VOLUME (BEAKER) (test oknm=725) 95.1 fL 79.0-92.2 MEAN CORPUSCULAR HEMOGLOBIN (BEAKER) (test 31.6 pg 25.7-32.2 flwz=740) MEAN CORPUSCULAR HEMOGLOBIN CONC (BEAKER) (test 33.2 GM/DL 32.3-36.5 wssw=837) RED CELL DISTRIBUTION WIDTH (BEAKER) (test 17.5 % 11.6-14.4 elvg=953) PLATELET COUNT (BEAKER) (test frri=552) 44 K/CU MM 150-450 MEAN PLATELET VOLUME (BEAKER) (test yexl=194) 9.3 fL 9.4-12.4 NUCLEATED RED BLOOD CELLS (BEAKER) (test 0 /100 WBC 0-0 srvj=325) NEUTROPHILS RELATIVE PERCENT (BEAKER) (test 59 % luno=158) LYMPHOCYTES RELATIVE PERCENT (BEAKER) (test 16 % rfqe=271) MONOCYTES RELATIVE PERCENT (BEAKER) (test 17 % fxmx=628) EOSINOPHILS RELATIVE PERCENT (BEAKER) (test 7 % lckm=056) BASOPHILS RELATIVE PERCENT (BEAKER) (test 0 % azbq=625) NEUTROPHILS ABSOLUTE COUNT (BEAKER) (test 1.72 K/ L 1.78-5.38 bmep=599) LYMPHOCYTES ABSOLUTE COUNT (BEAKER) (test 0.46 K/ L 1.32-3.57 eetd=482) MONOCYTES ABSOLUTE COUNT (BEAKER) (test nvxi=183) 0.51 K/ L 0.30-0.82 EOSINOPHILS ABSOLUTE COUNT (BEAKER) (test 0.21 K/ L 0.04-0.54 pchr=305) BASOPHILS ABSOLUTE COUNT (BEAKER) (test pccc=716) 0.01 K/ L 0.01-0.08 IMMATURE GRANULOCYTES-RELATIVE PERCENT (BEAKER) 1 % 0-1 (test mupy=8820) BASIC METABOLIC [id number] 07:00:00 Test Item Value Reference Range Comments SODIUM (BEAKER) (test 130 meq/L 136-145 hkds=235) POTASSIUM (BEAKER) (test 3.6 meq/L 3.5-5.1 fwah=458) CHLORIDE (BEAKER) (test 94 meq/L 98-107 ifuh=227) CO2 (BEAKER) (test 27 meq/L 22-29 xmlg=307) BLOOD UREA NITROGEN 19 mg/dL 7-21 (BEAKER) (test btgc=529) CREATININE (BEAKER) (test 1.40 mg/dL 0.57-1.25 ztxv=170) GLUCOSE RANDOM (BEAKER) 111 mg/dL 70-105 (test opna=905) CALCIUM (BEAKER) (test 9.2 mg/dL 8.4-10.2 jgwb=360) EGFR (BEAKER) (test 53 mL/min/1.73 sq m ESTIMATED GFR IS NOT gdax=2215) ACCURATE CREATININE CLEARANCE IN PREDICTING GLOMERULAR FILTRATION RATE. ESTIMATED GFR IS NOT APPLICABLE FOR DIALYSIS PATIENTS. Specimen moderately ictericCOMPREHENSIVE METABOLIC [id number] 07:00:00 Test Item Value Reference Range Comments TOTAL PROTEIN (BEAKER) 5.7 gm/dL 6.0-8.3 (test kslf=021) ALBUMIN (BEAKER) (test 4.0 g/dL 3.5-5.0 qect=7570) ALKALINE PHOSPHATASE 92 U/L 40-150 (BEAKER) (test euup=786) BILIRUBIN TOTAL (BEAKER) 4.6 mg/dL 0.2-1.2 (test vijp=610) SODIUM (BEAKER) (test 130 meq/L 136-145 hpbi=348) POTASSIUM (BEAKER) (test 3.6 meq/L 3.5-5.1 rkfg=769) CHLORIDE (BEAKER) (test 94 meq/L 98-107 budb=325) CO2 (BEAKER) (test 27 meq/L 22-29 brra=032) BLOOD UREA NITROGEN 19 mg/dL 7-21 (BEAKER) (test hbbw=920) CREATININE (BEAKER) (test 1.40 mg/dL 0.57-1.25 gqdf=247) GLUCOSE RANDOM (BEAKER) 111 mg/dL 70-105 (test pbgl=295) CALCIUM (BEAKER) (test 9.2 mg/dL 8.4-10.2 wgwk=162) AST (SGOT) (BEAKER) (test 16 U/L 5-34 hcwk=105) ALT (SGPT) (BEAKER) (test 6 U/L 6-55 etnw=936) EGFR (BEAKER) (test 53 mL/min/1.73 sq m ESTIMATED GFR IS NOT ucgv=4143) ACCURATE CREATININE CLEARANCE IN PREDICTING GLOMERULAR FILTRATION RATE. ESTIMATED GFR IS NOT APPLICABLE FOR DIALYSIS PATIENTS. Specimen moderately ictericHEPATIC FUNCTION [id number] 07:00:00 Test Item Value Reference Range Comments TOTAL PROTEIN (BEAKER) (test uhzl=248) 5.7 gm/dL 6.0-8.3 ALBUMIN (BEAKER) (test mmev=9803) 4.0 g/dL 3.5-5.0 BILIRUBIN TOTAL (BEAKER) (test qphi=476) 4.6 mg/dL 0.2-1.2 BILIRUBIN DIRECT (BEAKER) (test bqvu=216) 1.8 mg/dL 0.1-0.5 ALKALINE PHOSPHATASE (BEAKER) (test agco=693) 92 U/L 40-150 AST (SGOT) (BEAKER) (test nxmn=376) 16 U/L 5-34 ALT (SGPT) (BEAKER) (test wyjx=166) 6 U/L 6-55 Specimen moderately [id number] 06:57:00 Test Item Value Reference Range Comments PARTIAL THROMBOPLASTIN TIME (BEAKER) (test 47.9 seconds 22.5-36.0 fzem=735) PROTHROMBIN [id number] 06:55:00 Test Item Value Reference Range Comments PROTIME (BEAKER) (test rbxv=423) 23.7 seconds 11.7-14.7 INR (BEAKER) (test tqmm=397) 2.1 <=5.9 RECOMMENDED COUMADIN/WARFARIN INR THERAPY RANGESSTANDARD DOSE: 2.0 - 3.0 Includes: PROPHYLAXIS forvenous thrombosis, systemic embolization; TREATMENT for venous thrombosis and/or pulmonary embolus.HIGH RISK: Target INR is 2.5-3.5 for patients with mechanical heart valves.MR, SPINE, LUMBAR, WITHOUT [id number] 16:57:00FINAL REPORT MRI lumbar spine without contrast [...] Bain Verified Date/Time: 05/07/2018 16:57:00 Reading Location: [facility] Radiology Reading Room LACTIC ACID, VENOUS, WHOLE [id number] 14:13:00 Test Item Value Reference Range Comments LACTATE BLOOD VENOUS (2) (BEAKER) (test 2.6 mmol/L 0.5-2.2 fror=1089) Effective 02/28/2016: Units/Reference Range ChangeNew: 0.5-2.2 mmol/L Previous: 5 -20 mg/dLSpecimen slightly ictericHEMOGLOBIN AND [id number] 13:51:00 Test Item Value Reference Range Comments HEMOGLOBIN (BEAKER) (test vgnl=774) 7.1 GM/DL 13.7-17.5 HEMATOCRIT (BEAKER) (test plwh=761) 21.7 % 40.1-51.0 U/S, RENAL, [id number] 09:48:00Reason for exam:->AKIFINAL REPORT Renal ultrasound Clinical [...] MDReport Verified Date/Time: 05/07/2018 09:48:55 Reading Location: [address] Ultrasound Reading Room Electronically signed by: REECE HAQUE MD on 09:[id number] 09:04:00 Test Item Value Reference Range Comments MAGNESIUM (BEAKER) (test oupc=502) 2.0 mg/dL 1.6-2.6 COMPREHENSIVE METABOLIC [id number] 09:04:00 Test Item Value Reference Range Comments TOTAL PROTEIN (BEAKER) 5.2 gm/dL 6.0-8.3 (test tllg=066) ALBUMIN (BEAKER) (test 3.5 g/dL 3.5-5.0 dfme=5869) ALKALINE PHOSPHATASE 96 U/L 40-150 (BEAKER) (test zkyg=372) BILIRUBIN TOTAL (BEAKER) 4.1 mg/dL 0.2-1.2 (test abpq=302) SODIUM (BEAKER) (test 129 meq/L 136-145 empj=557) POTASSIUM (BEAKER) (test 3.8 meq/L 3.5-5.1 qrdp=513) CHLORIDE (BEAKER) (test 96 meq/L 98-107 gxrs=001) CO2 (BEAKER) (test 25 meq/L 22-29 vahc=200) BLOOD UREA NITROGEN 22 mg/dL 7-21 (BEAKER) (test ytdp=772) CREATININE (BEAKER) (test 1.57 mg/dL 0.57-1.25 pbzl=604) GLUCOSE RANDOM (BEAKER) 122 mg/dL 70-105 (test mtiy=082) CALCIUM (BEAKER) (test 8.9 mg/dL 8.4-10.2 dzpe=803) AST (SGOT) (BEAKER) (test 15 U/L 5-34 wxjl=435) ALT (SGPT) (BEAKER) (test 7 U/L 6-55 sncc=552) EGFR (BEAKER) (test 47 mL/min/1.73 sq m ESTIMATED GFR IS NOT uyqm=5759) ACCURATE CREATININE CLEARANCE IN PREDICTING GLOMERULAR FILTRATION RATE. ESTIMATED GFR IS NOT APPLICABLE FOR DIALYSIS PATIENTS. Specimen moderately ictericHEPATIC FUNCTION [id number] 09:04:00 Test Item Value Reference Range Comments TOTAL PROTEIN (BEAKER) (test ithv=760) 5.2 gm/dL 6.0-8.3 ALBUMIN (BEAKER) (test wygg=2229) 3.5 g/dL 3.5-5.0 BILIRUBIN TOTAL (BEAKER) (test chmi=773) 4.1 mg/dL 0.2-1.2 BILIRUBIN DIRECT (BEAKER) (test gxuq=750) 1.8 mg/dL 0.1-0.5 ALKALINE PHOSPHATASE (BEAKER) (test apnk=613) 96 U/L 40-150 AST (SGOT) (BEAKER) (test llej=890) 15 U/L 5-34 ALT (SGPT) (BEAKER) (test chab=601) 7 U/L 6-55 Specimen moderately ictericCBC W/PLT COUNT & AUTO [id number] 08: 26:00 Test Item Value Reference Range Comments WHITE BLOOD CELL COUNT (BEAKER) (test fuei=880) 2.7 K/ L 3.5-10.5 RED BLOOD CELL COUNT (BEAKER) (test ovno=699) 2.13 M/ L 4.63-6.08 HEMOGLOBIN (BEAKER) (test tsdx=187) 6.8 GM/DL 13.7-17.5 HEMATOCRIT (BEAKER) (test epxv=699) 19.5 % 40.1-51.0 MEAN CORPUSCULAR VOLUME (BEAKER) (test sphn=671) 91.5 fL 79.0-92.2 MEAN CORPUSCULAR HEMOGLOBIN (BEAKER) (test 31.9 pg 25.7-32.2 qyve=146) MEAN CORPUSCULAR HEMOGLOBIN CONC (BEAKER) (test 34.9 GM/DL 32.3-36.5 kqvv=296) RED CELL DISTRIBUTION WIDTH (BEAKER) (test 17.5 % 11.6-14.4 itzu=231) PLATELET COUNT (BEAKER) (test vlde=688) 52 K/CU MM 150-450 MEAN PLATELET VOLUME (BEAKER) (test eule=707) 9.1 fL 9.4-12.4 NUCLEATED RED BLOOD CELLS (BEAKER) (test 0 /100 WBC 0-0 parz=308) NEUTROPHILS RELATIVE PERCENT (BEAKER) (test 62 % flvj=607) LYMPHOCYTES RELATIVE PERCENT (BEAKER) (test 16 % jenq=590) MONOCYTES RELATIVE PERCENT (BEAKER) (test 17 % cdlw=282) EOSINOPHILS RELATIVE PERCENT (BEAKER) (test 4 % vayv=625) BASOPHILS RELATIVE PERCENT (BEAKER) (test 0 % gbna=894) NEUTROPHILS ABSOLUTE COUNT (BEAKER) (test 1.66 K/ L 1.78-5.38 qdvi=409) LYMPHOCYTES ABSOLUTE COUNT (BEAKER) (test 0.43 K/ L 1.32-3.57 kqsk=113) MONOCYTES ABSOLUTE COUNT (BEAKER) (test jxaz=616) 0.44 K/ L 0.30-0.82 EOSINOPHILS ABSOLUTE COUNT (BEAKER) (test 0.11 K/ L 0.04-0.54 oirx=883) BASOPHILS ABSOLUTE COUNT (BEAKER) (test viwy=025) 0.00 K/ L 0.01-0.08 IMMATURE GRANULOCYTES-RELATIVE PERCENT (BEAKER) 1 % 0-1 (test uxdj=4124) PROTHROMBIN [id number] 08:08:00 Test Item Value Reference Range Comments PROTIME (BEAKER) (test xxns=543) 28.3 seconds 11.7-14.7 INR (BEAKER) (test bcvt=260) 2.7 <=5.9 RECOMMENDED COUMADIN/WARFARIN INR THERAPY RANGESSTANDARD DOSE: 2.0 - 3.0 Includes: PROPHYLAXIS forvenous thrombosis, systemic embolization; TREATMENT for venous thrombosis and/or pulmonary embolus.HIGH RISK: Target INR is 2.5-3.5 for patients with mechanical heart valves.[id number] 19:47:00 Test Item Value Reference Range Comments SODIUM (BEAKER) (test abxb=322) 129 meq/L 136-145 POTASSIUM (BEAKER) (test qgqm=001) 4.6 meq/L 3.5-5.1 CHLORIDE (BEAKER) (test cexj=296) 96 meq/L 98-107 CO2 (BEAKER) (test bfgv=426) 22 meq/L 22-29 Call [id number] AND [id number] 19:27:00 Test Item Value Reference Range Comments HEMOGLOBIN (BEAKER) (test hhfr=386) 7.1 GM/DL 13.7-17.5 HEMATOCRIT (BEAKER) (test mimv=876) 21.4 % 40.1-51.0 Draw after transfusion of 1u RBC, notify hospitalist if Hgb remains less than 7.0HEMOGLOBIN AND [id number] 11:52:00 Test Item Value Reference Range Comments HEMOGLOBIN (BEAKER) (test cdhr=682) 6.3 GM/DL 13.7-17.5 HEMATOCRIT (BEAKER) (test yvso=308) 18.9 % 40.1-51.0 Notify Hepatology if Hgb< 7.0YUNIOR Sandoval PA-CPager#: .BASIC METABOLIC [id number] 05:55:00 Test Item Value Reference Range Comments SODIUM (BEAKER) (test 129 meq/L 136-145 vfle=642) POTASSIUM (BEAKER) (test 5.2 meq/L 3.5-5.1 eqkz=184) CHLORIDE (BEAKER) (test 97 meq/L 98-107 ekzj=605) CO2 (BEAKER) (test 22 meq/L 22-29 luxx=363) BLOOD UREA NITROGEN 28 mg/dL 7-21 (BEAKER) (test fobc=425) CREATININE (BEAKER) (test 1.95 mg/dL 0.57-1.25 mcpq=390) GLUCOSE RANDOM (BEAKER) 102 mg/dL 70-105 (test qskz=837) CALCIUM (BEAKER) (test 9.4 mg/dL 8.4-10.2 fxyu=408) EGFR (BEAKER) (test 36 mL/min/1.73 sq m ESTIMATED GFR IS NOT sosj=3193) ACCURATE CREATININE CLEARANCE IN PREDICTING GLOMERULAR FILTRATION RATE. ESTIMATED GFR IS NOT APPLICABLE FOR DIALYSIS PATIENTS. Specimen slightly ictericHEPATIC FUNCTION [id number] 05:55:00 Test Item Value Reference Range Comments TOTAL PROTEIN (BEAKER) (test uivg=491) 5.6 gm/dL 6.0-8.3 ALBUMIN (BEAKER) (test brdm=2829) 3.4 g/dL 3.5-5.0 BILIRUBIN TOTAL (BEAKER) (test bofn=392) 3.7 mg/dL 0.2-1.2 BILIRUBIN DIRECT (BEAKER) (test dsvc=394) 2.5 mg/dL 0.1-0.5 ALKALINE PHOSPHATASE (BEAKER) (test pglj=955) 108 U/L 40-150 AST (SGOT) (BEAKER) (test jzox=689) 17 U/L 5-34 ALT (SGPT) (BEAKER) (test uicn=554) 7 U/L 6-55 Specimen slightly ictericCBC W/PLT COUNT & AUTO [id number] 05:42 :00 Test Item Value Reference Range Comments WHITE BLOOD CELL COUNT (BEAKER) (test hlee=318) 3.7 K/ L 3.5-10.5 RED BLOOD CELL COUNT (BEAKER) (test xqht=367) 2.10 M/ L 4.63-6.08 HEMOGLOBIN (BEAKER) (test ucjz=815) 6.5 GM/DL 13.7-17.5 HEMATOCRIT (BEAKER) (test hvfi=964) 19.8 % 40.1-51.0 MEAN CORPUSCULAR VOLUME (BEAKER) (test ajzr=517) 94.3 fL 79.0-92.2 MEAN CORPUSCULAR HEMOGLOBIN (BEAKER) (test 31.0 pg 25.7-32.2 mikv=935) MEAN CORPUSCULAR HEMOGLOBIN CONC (BEAKER) (test 32.8 GM/DL 32.3-36.5 kgkn=016) RED CELL DISTRIBUTION WIDTH (BEAKER) (test 16.4 % 11.6-14.4 fzpp=096) PLATELET COUNT (BEAKER) (test esas=374) 54 K/CU MM 150-450 MEAN PLATELET VOLUME (BEAKER) (test vsgm=990) 9.8 fL 9.4-12.4 NUCLEATED RED BLOOD CELLS (BEAKER) (test 0 /100 WBC 0-0 mcpm=150) NEUTROPHILS RELATIVE PERCENT (BEAKER) (test 62 % cwcv=103) LYMPHOCYTES RELATIVE PERCENT (BEAKER) (test 15 % csdq=595) MONOCYTES RELATIVE PERCENT (BEAKER) (test 18 % enth=159) EOSINOPHILS RELATIVE PERCENT (BEAKER) (test 3 % rxph=162) BASOPHILS RELATIVE PERCENT (BEAKER) (test 0 % eohh=053) NEUTROPHILS ABSOLUTE COUNT (BEAKER) (test 2.27 K/ L 1.78-5.38 bkjo=953) LYMPHOCYTES ABSOLUTE COUNT (BEAKER) (test 0.56 K/ L 1.32-3.57 bmzv=336) MONOCYTES ABSOLUTE COUNT (BEAKER) (test rpsz=787) 0.66 K/ L 0.30-0.82 EOSINOPHILS ABSOLUTE COUNT (BEAKER) (test 0.12 K/ L 0.04-0.54 yzaj=464) BASOPHILS ABSOLUTE COUNT (BEAKER) (test apgf=963) 0.01 K/ L 0.01-0.08 IMMATURE GRANULOCYTES-RELATIVE PERCENT (BEAKER) 1 % 0-1 (test lwph=7733) PROTHROMBIN [id number] 05:34:00 Test Item Value Reference Range Comments PROTIME (BEAKER) (test ypyl=039) 21.7 seconds 11.7-14.7 INR (BEAKER) (test pkuf=347) 1.9 <=5.9 RECOMMENDED COUMADIN/WARFARIN INR THERAPY RANGESSTANDARD DOSE: 2.0 - 3.0 Includes: PROPHYLAXIS forvenous thrombosis, systemic embolization; TREATMENT for venous thrombosis and/or pulmonary embolus.HIGH RISK: Target INR is 2.5-3.5 for patients with mechanical heart valves.EOSINOPHIL SMEAR, [id number] 21: 51:00 Test Item Value Reference Range Comments EOSINOPHIL SMEAR, URINE (BEAKER) (test No EOS seen No EOS seen nypa=4392) BODY FLUID CELL COUNT WITH [id number] 21:42:00 Test Item Value Reference Range Comments APPEARANCE FLUID (BEAKER) (test acqa=380) Hazy Clear COLOR FLUID (BEAKER) (test xhxk=324) Yellow Colorless, Straw RBC FLUID (BEAKER) (test vlhy=591) 70 /cu mm <=1 ADJUSTED WBC FLUID (BEAKER) (test fmhb=1066) 44 /cu mm <=5 LINING CELLS (BEAKER) (test poai=6499) 8 /cu mm <=1 NEUTROPHILS FLUID (BEAKER) (test naid=3774) 0 % LYMPHS FLUID (BEAKER) (test hjzt=616) 11 % MONO/MACROPHAGE FLUID (BEAKER) (test pqec=656) 89 % EOSINOPHILS FLUID (BEAKER) (test mbsu=251) 0 % BASO FLUID (BEAKER) (test atwb=635) 0 % CONTAINER BODY FLUID (BEAKER) (test ptjs=7791) EDTA Tube OSMOLALITY, [id number] 19:46:00 Test Item Value Reference Range Comments OSMOLALITY URINE (BEAKER) (test deey=011) 355 mOsm/kg 40-1400 SODIUM, RANDOM [id number] 19:35:00 Test Item Value Reference Range Comments SODIUM URINE (BEAKER) (test bumk=523) < meq/L Reference Range: No NormalsPROTEIN, RANDOM [id number] 19:27:00 Test Item Value Reference Range Comments PROTEIN, URINE (BEAKER) (test jyji=4745) 7 mg/dL 0-14 CREATININE, RANDOM [id number] 19:25:00 Test Item Value Reference Range Comments CREATININE URINE (BEAKER) (test boum=584) 150.3 mg/dL Reference Range: No [id number] 16:26:00 Test Item Value Reference Range Comments PREALBUMIN (BEAKER) (test diax=124) 5 mg/dL 14-45 Listed for OLT - Nutrition Surveillance ([facility] Hepatology Transplant Team)U/S, [id number] 14:56:00Reason for exam:->ascites - limit to 5L [...] MDReport Verified Date/Time: 05/05/2018 14:56:27 Reading Location: [address] Ultrasound Reading Room BASI METABOLIC [id number] 09:36:00 Test Item Value Reference Range Comments SODIUM (BEAKER) (test 125 meq/L 136-145 dukr=377) POTASSIUM (BEAKER) (test 4.2 meq/L 3.5-5.1 jgfa=099) CHLORIDE (BEAKER) (test 95 meq/L 98-107 unig=887) CO2 (BEAKER) (test 23 meq/L 22-29 taju=650) BLOOD UREA NITROGEN 29 mg/dL 7-21 (BEAKER) (test uibs=510) CREATININE (BEAKER) (test 2.01 mg/dL 0.57-1.25 shhk=364) GLUCOSE RANDOM (BEAKER) 112 mg/dL 70-105 (test nwla=834) CALCIUM (BEAKER) (test 9.2 mg/dL 8.4-10.2 zifp=071) EGFR (BEAKER) (test 35 mL/min/1.73 sq m ESTIMATED GFR IS NOT kifn=4169) ACCURATE CREATININE CLEARANCE IN PREDICTING GLOMERULAR FILTRATION RATE. ESTIMATED GFR IS NOT APPLICABLE FOR DIALYSIS PATIENTS. Specimen slightly ictericHEPATIC FUNCTION [id number] 09:36:00 Test Item Value Reference Range Comments TOTAL PROTEIN (BEAKER) (test jbpf=742) 5.3 gm/dL 6.0-8.3 ALBUMIN (BEAKER) (test pxxi=9395) 3.0 g/dL 3.5-5.0 BILIRUBIN TOTAL (BEAKER) (test hvzm=536) 4.1 mg/dL 0.2-1.2 BILIRUBIN DIRECT (BEAKER) (test iccn=837) 2.8 mg/dL 0.1-0.5 ALKALINE PHOSPHATASE (BEAKER) (test nhbn=537) 115 U/L 40-150 AST (SGOT) (BEAKER) (test iqrn=983) 20 U/L 5-34 ALT (SGPT) (BEAKER) (test wxpb=650) 9 U/L 6-55 Specimen slightly ictericCBC W/PLT COUNT & AUTO [id number] 09:28 :00 Test Item Value Reference Range Comments WHITE BLOOD CELL COUNT (BEAKER) (test sqtg=119) 4.4 K/ L 3.5-10.5 RED BLOOD CELL COUNT (BEAKER) (test tmub=617) 2.20 M/ L 4.63-6.08 HEMOGLOBIN (BEAKER) (test ogss=497) 7.1 GM/DL 13.7-17.5 HEMATOCRIT (BEAKER) (test onqn=309) 21.1 % 40.1-51.0 MEAN CORPUSCULAR VOLUME (BEAKER) (test kfci=455) 95.9 fL 79.0-92.2 MEAN CORPUSCULAR HEMOGLOBIN (BEAKER) (test 32.3 pg 25.7-32.2 wjgj=606) MEAN CORPUSCULAR HEMOGLOBIN CONC (BEAKER) (test 33.6 GM/DL 32.3-36.5 oqqe=585) RED CELL DISTRIBUTION WIDTH (BEAKER) (test 16.7 % 11.6-14.4 fdkd=521) PLATELET COUNT (BEAKER) (test zhym=807) 60 K/CU MM 150-450 MEAN PLATELET VOLUME (BEAKER) (test xtsd=767) 9.7 fL 9.4-12.4 NUCLEATED RED BLOOD CELLS (BEAKER) (test 0 /100 WBC 0-0 afdn=836) NEUTROPHILS RELATIVE PERCENT (BEAKER) (test 71 % wxuh=363) LYMPHOCYTES RELATIVE PERCENT (BEAKER) (test 9 % hkhg=621) MONOCYTES RELATIVE PERCENT (BEAKER) (test 16 % vjdk=807) EOSINOPHILS RELATIVE PERCENT (BEAKER) (test 3 % bylf=207) BASOPHILS RELATIVE PERCENT (BEAKER) (test 0 % zsjs=747) NEUTROPHILS ABSOLUTE COUNT (BEAKER) (test 3.10 K/ L 1.78-5.38 qubq=016) LYMPHOCYTES ABSOLUTE COUNT (BEAKER) (test 0.39 K/ L 1.32-3.57 ahjo=727) MONOCYTES ABSOLUTE COUNT (BEAKER) (test jbud=032) 0.69 K/ L 0.30-0.82 EOSINOPHILS ABSOLUTE COUNT (BEAKER) (test 0.12 K/ L 0.04-0.54 rifv=726) BASOPHILS ABSOLUTE COUNT (BEAKER) (test gumw=404) 0.01 K/ L 0.01-0.08 IMMATURE GRANULOCYTES-RELATIVE PERCENT (BEAKER) 1 % 0-1 (test kwjj=5068) PROTHROMBIN [id number] 09:07:00 Test Item Value Reference Range Comments PROTIME (BEAKER) (test ydhr=024) 21.6 seconds 11.7-14.7 INR (BEAKER) (test vbhl=709) 1.9 <=5.9 RECOMMENDED COUMADIN/WARFARIN INR THERAPY RANGESSTANDARD DOSE: 2.0 - 3.0 Includes: PROPHYLAXIS forvenous thrombosis, systemic embolization; TREATMENT for venous thrombosis and/or pulmonary embolus.HIGH RISK: Target INR is 2.5-3.5 for patients with mechanical heart valves.[id number] 13:59:00 Test Item Value Reference Range Comments POC-CREATININE (BEAKER) 2.0 mg/dL 0.6-1.3 TESTED AT [facility] [address] [facility] (test sphv=5317) [facility] [address] POC-EGFR (BEAKER) (test 35 mL/min/1.73M2 irdz=8533) PET/CT, LIMITED AREA [id number] 08:25:00PET/ CT ChestReason for Exam:-> Elongated nodular [...] thighsAdditional imaging: NoneSerum blood glucose: 119CPT Code: 16369 FINDINGS:Head and Neck: There is no trisha [...] Hung Verified Date/Time: 03/31/2018 08:25:09 POCT- GLUCOSE [id number] 14:54:00 Test Item Value Reference Range Comments POC-GLUCOSE METER (BEAKER) 119 mg/dL 70-110 TESTED AT [facility] [address] [facility] (test qydq=1079) [facility] [address] COMPREHENSIVE METABOLIC [id number] 16:49:00 Test Item Value Reference Range Comments TOTAL PROTEIN (BEAKER) 6.2 gm/dL 6.0-8.3 (test exdh=691) ALBUMIN (BEAKER) (test 3.4 g/dL 3.5-5.0 lifn=2245) ALKALINE PHOSPHATASE 139 U/L 40-150 (BEAKER) (test yprp=870) BILIRUBIN TOTAL (BEAKER) 4.0 mg/dL 0.2-1.2 (test djpy=455) SODIUM (BEAKER) (test 129 meq/L 136-145 rvtn=614) POTASSIUM (BEAKER) (test 4.3 meq/L 3.5-5.1 eelc=057) CHLORIDE (BEAKER) (test 96 meq/L 98-107 auqf=122) CO2 (BEAKER) (test 22 meq/L 22-29 ztyg=822) BLOOD UREA NITROGEN 28 mg/dL 7-21 (BEAKER) (test igew=646) CREATININE (BEAKER) (test 1.51 mg/dL 0.57-1.25 inyn=317) GLUCOSE RANDOM (BEAKER) 89 mg/dL 70-105 (test vwrc=889) CALCIUM (BEAKER) (test 9.5 mg/dL 8.4-10.2 mozd=920) AST (SGOT) (BEAKER) (test 26 U/L 5-34 coyn=854) ALT (SGPT) (BEAKER) (test 11 U/L 6-55 dpwi=143) EGFR (BEAKER) (test 49 mL/min/1.73 sq m ESTIMATED GFR IS NOT czjr=6602) ACCURATE CREATININE CLEARANCE IN PREDICTING GLOMERULAR FILTRATION RATE. ESTIMATED GFR IS NOT APPLICABLE FOR DIALYSIS PATIENTS. Specimen slightly ictericBILIRUBIN, [id number] 16:49:00 Test Item Value Reference Range Comments BILIRUBIN DIRECT (BEAKER) (test shqv=099) 2.8 mg/dL 0.1-0.5 PROTHROMBIN [id number] 16:36:00 Test Item Value Reference Range Comments PROTIME (BEAKER) (test twqn=482) 19.0 seconds 11.7-14.7 INR (BEAKER) (test qbpn=796) 1.6 <=5.9 RECOMMENDED COUMADIN/WARFARIN INR THERAPY RANGESSTANDARD DOSE: 2.0 - 3.0 Includes: PROPHYLAXIS forvenous thrombosis, systemic embolization; TREATMENT for venous thrombosis and/or pulmonary embolus.HIGH RISK: Target INR is 2.5-3.5 for patients with mechanical heart valves.CBC W/PLT COUNT & AUTO [id number] 16:27:00 Test Item Value Reference Range Comments WHITE BLOOD CELL COUNT (BEAKER) (test ahuu=202) 6.0 K/ L 3.5-10.5 RED BLOOD CELL COUNT (BEAKER) (test jaqf=436) 2.74 M/ L 4.63-6.08 HEMOGLOBIN (BEAKER) (test uwhl=602) 9.3 GM/DL 13.7-17.5 HEMATOCRIT (BEAKER) (test imfr=829) 27.6 % 40.1-51.0 MEAN CORPUSCULAR VOLUME (BEAKER) (test ibdo=928) 100.7 fL 79.0-92.2 MEAN CORPUSCULAR HEMOGLOBIN (BEAKER) (test 33.9 pg 25.7-32.2 qqiy=137) MEAN CORPUSCULAR HEMOGLOBIN CONC (BEAKER) (test 33.7 GM/DL 32.3-36.5 jxpr=210) RED CELL DISTRIBUTION WIDTH (BEAKER) (test 14.9 % 11.6-14.4 wncu=397) PLATELET COUNT (BEAKER) (test guev=055) 96 K/CU MM 150-450 MEAN PLATELET VOLUME (BEAKER) (test ggfy=765) 9.4 fL 9.4-12.4 NUCLEATED RED BLOOD CELLS (BEAKER) (test 0 /100 WBC 0-0 rvjy=163) NEUTROPHILS RELATIVE PERCENT (BEAKER) (test 64 % oimv=701) LYMPHOCYTES RELATIVE PERCENT (BEAKER) (test 11 % hfer=197) MONOCYTES RELATIVE PERCENT (BEAKER) (test 16 % uiuf=148) EOSINOPHILS RELATIVE PERCENT (BEAKER) (test 7 % ziik=180) BASOPHILS RELATIVE PERCENT (BEAKER) (test 1 % vbrb=559) NEUTROPHILS ABSOLUTE COUNT (BEAKER) (test 3.83 K/ L 1.78-5.38 tdot=628) LYMPHOCYTES ABSOLUTE COUNT (BEAKER) (test 0.66 K/ L 1.32-3.57 vdpa=544) MONOCYTES ABSOLUTE COUNT (BEAKER) (test upkc=129) 0.95 K/ L 0.30-0.82 EOSINOPHILS ABSOLUTE COUNT (BEAKER) (test 0.41 K/ L 0.04-0.54 lpzm=333) BASOPHILS ABSOLUTE COUNT (BEAKER) (test sejv=490) 0.03 K/ L 0.01-0.08 IMMATURE GRANULOCYTES-RELATIVE PERCENT (BEAKER) 2 % 0-1 (test emrl=3177) BASIC METABOLIC [id number] 08:26:00 Test Item Value Reference Range Comments SODIUM (BEAKER) (test 127 meq/L 136-145 hxid=055) POTASSIUM (BEAKER) (test 4.3 meq/L 3.5-5.1 xyyq=761) CHLORIDE (BEAKER) (test 96 meq/L 98-107 yfup=459) CO2 (BEAKER) (test 23 meq/L 22-29 sdll=679) BLOOD UREA NITROGEN 25 mg/dL 7-21 (BEAKER) (test zbpk=846) CREATININE (BEAKER) (test 1.46 mg/dL 0.57-1.25 deha=968) GLUCOSE RANDOM (BEAKER) 130 mg/dL 70-105 (test inoc=977) CALCIUM (BEAKER) (test 9.1 mg/dL 8.4-10.2 txfr=299) EGFR (BEAKER) (test 51 mL/min/1.73 sq m ESTIMATED GFR IS NOT tmnl=3196) ACCURATE CREATININE CLEARANCE IN PREDICTING GLOMERULAR FILTRATION RATE. ESTIMATED GFR IS NOT APPLICABLE FOR DIALYSIS PATIENTS. Specimen slightly ictericCBC (HEMOGRAM ONLY)[id number] 08:06:00 Test Item Value Reference Range Comments WHITE BLOOD CELL COUNT (BEAKER) (test gvwz=371) 5.4 K/ L 3.5-10.5 RED BLOOD CELL COUNT (BEAKER) (test lgep=642) 2.64 M/ L 4.63-6.08 HEMOGLOBIN (BEAKER) (test pwxv=847) 8.8 GM/DL 13.7-17.5 HEMATOCRIT (BEAKER) (test uczp=200) 26.2 % 40.1-51.0 MEAN CORPUSCULAR VOLUME (BEAKER) (test rfqw=669) 99.2 fL 79.0-92.2 MEAN CORPUSCULAR HEMOGLOBIN (BEAKER) (test 33.3 pg 25.7-32.2 iwnx=502) MEAN CORPUSCULAR HEMOGLOBIN CONC (BEAKER) (test 33.6 GM/DL 32.3-36.5 ljid=319) RED CELL DISTRIBUTION WIDTH (BEAKER) (test 16.2 % 11.6-14.4 tqqb=899) PLATELET COUNT (BEAKER) (test fnlb=890) 100 K/CU MM 150-450 MEAN PLATELET VOLUME (BEAKER) (test mmvx=622) 8.7 fL 9.4-12.4 NUCLEATED RED BLOOD CELLS (BEAKER) (test 0 /100 WBC 0-0 ofew=264) COMPREHENSIVE METABOLIC [id number] 15:06:00 Test Item Value Reference Range Comments TOTAL PROTEIN (BEAKER) 6.5 gm/dL 6.0-8.3 (test dlif=193) ALBUMIN (BEAKER) (test 3.7 g/dL 3.5-5.0 wrki=3877) ALKALINE PHOSPHATASE 135 U/L 40-150 (BEAKER) (test zubd=033) BILIRUBIN TOTAL (BEAKER) 4.5 mg/dL 0.2-1.2 (test yfui=636) SODIUM (BEAKER) (test 131 meq/L 136-145 nalg=760) POTASSIUM (BEAKER) (test 5.8 meq/L 3.5-5.1 dvlg=110) CHLORIDE (BEAKER) (test 103 meq/L 98-107 ykjz=946) CO2 (BEAKER) (test 24 meq/L 22-29 yidz=335) BLOOD UREA NITROGEN 27 mg/dL 7-21 (BEAKER) (test miyp=079) CREATININE (BEAKER) (test 1.17 mg/dL 0.57-1.25 zivo=160) GLUCOSE RANDOM (BEAKER) 111 mg/dL 70-105 (test dxdp=162) CALCIUM (BEAKER) (test 11.0 mg/dL 8.4-10.2 pvvu=611) AST (SGOT) (BEAKER) (test 28 U/L 5-34 qfhr=279) ALT (SGPT) (BEAKER) (test 19 U/L 6-55 ehtd=113) EGFR (BEAKER) (test 65 mL/min/1.73 sq m ESTIMATED GFR IS NOT ajws=2613) ACCURATE CREATININE CLEARANCE IN PREDICTING GLOMERULAR FILTRATION RATE. ESTIMATED GFR IS NOT APPLICABLE FOR DIALYSIS PATIENTS. Specimen slightly ictericBILIRUBIN, [id number] 15:06:00 Test Item Value Reference Range Comments BILIRUBIN DIRECT (BEAKER) (test utsy=630) 3.0 mg/dL 0.1-0.5 PROTHROMBIN [id number] 14:42:00 Test Item Value Reference Range Comments PROTIME (BEAKER) (test taan=064) 19.1 seconds 11.7-14.7 INR (BEAKER) (test qzlh=343) 1.6 <=5.9 RECOMMENDED COUMADIN/WARFARIN INR THERAPY RANGESSTANDARD DOSE: 2.0 - 3.0 Includes: PROPHYLAXIS forvenous thrombosis, systemic embolization; TREATMENT for venous thrombosis and/or pulmonary embolus.HIGH RISK: Target INR is 2.5-3.5 for patients with mechanical heart valves.CBC W/PLT COUNT & AUTO [id number] 14:36:00 Test Item Value Reference Range Comments WHITE BLOOD CELL COUNT (BEAKER) (test vzja=110) 5.5 K/ L 3.5-10.5 RED BLOOD CELL COUNT (BEAKER) (test issd=046) 2.84 M/ L 4.63-6.08 HEMOGLOBIN (BEAKER) (test pmuj=791) 9.5 GM/DL 13.7-17.5 HEMATOCRIT (BEAKER) (test ulbm=357) 28.8 % 40.1-51.0 MEAN CORPUSCULAR VOLUME (BEAKER) (test keyp=108) 101.4 fL 79.0-92.2 MEAN CORPUSCULAR HEMOGLOBIN (BEAKER) (test 33.5 pg 25.7-32.2 aoin=363) MEAN CORPUSCULAR HEMOGLOBIN CONC (BEAKER) (test 33.0 GM/DL 32.3-36.5 xqdo=630) RED CELL DISTRIBUTION WIDTH (BEAKER) (test 19.4 % 11.6-14.4 wkcw=860) PLATELET COUNT (BEAKER) (test ugtn=410) 65 K/CU MM 150-450 MEAN PLATELET VOLUME (BEAKER) (test wyzm=013) 8.8 fL 9.4-12.4 NUCLEATED RED BLOOD CELLS (BEAKER) (test 0 /100 WBC 0-0 ijtg=110) NEUTROPHILS RELATIVE PERCENT (BEAKER) (test 66 % djix=471) LYMPHOCYTES RELATIVE PERCENT (BEAKER) (test 14 % hrth=822) MONOCYTES RELATIVE PERCENT (BEAKER) (test 15 % jfiz=926) EOSINOPHILS RELATIVE PERCENT (BEAKER) (test 4 % mglo=810) BASOPHILS RELATIVE PERCENT (BEAKER) (test 0 % jgfr=141) NEUTROPHILS ABSOLUTE COUNT (BEAKER) (test 3.58 K/ L 1.78-5.38 kyrr=913) LYMPHOCYTES ABSOLUTE COUNT (BEAKER) (test 0.78 K/ L 1.32-3.57 coaq=296) MONOCYTES ABSOLUTE COUNT (BEAKER) (test ozme=325) 0.79 K/ L 0.30-0.82 EOSINOPHILS ABSOLUTE COUNT (BEAKER) (test 0.23 K/ L 0.04-0.54 bqdo=666) BASOPHILS ABSOLUTE COUNT (BEAKER) (test zzyw=026) 0.02 K/ L 0.01-0.08 IMMATURE GRANULOCYTES-RELATIVE PERCENT (BEAKER) 1 % 0-1 (test hwij=5163) RAD, KNEE, COMPLETE (4 VIEWS), [id number] 11:15:00Reason for exam:->FALL , PAINFINAL REPORT Bilateral [...] MDReport Verified Date/Time: 01/06/2018 11:15:08 Reading Location: [facility] Radiology Reading Room RAD, KNEE, COMPLETE (4 VIEWS), [id number] 11:15:00Reason for exam:->FALL, PAINFINAL REPORT Bilateral knee [...] MDReport Verified Date/Time: 01/06/2018 11:15:08 Reading Location: [facility] Radiology Reading Room CBC W/PLT COUNT & AUTO [id number] 10: 58:00 Test Item Value Reference Range Comments WHITE BLOOD CELL COUNT (BEAKER) (test gblc=847) 2.9 K/ L 3.5-10.5 RED BLOOD CELL COUNT (BEAKER) (test vnyk=496) 2.27 M/ L 4.63-6.08 HEMOGLOBIN (BEAKER) (test tnvp=100) 7.1 GM/DL 13.7-17.5 HEMATOCRIT (BEAKER) (test tpgl=267) 21.0 % 40.1-51.0 MEAN CORPUSCULAR VOLUME (BEAKER) (test hmxk=715) 92.5 fL 79.0-92.2 MEAN CORPUSCULAR HEMOGLOBIN (BEAKER) (test 31.3 pg 25.7-32.2 lkjj=889) MEAN CORPUSCULAR HEMOGLOBIN CONC (BEAKER) (test 33.8 GM/DL 32.3-36.5 xitn=942) RED CELL DISTRIBUTION WIDTH (BEAKER) (test 17.2 % 11.6-14.4 gxij=367) PLATELET COUNT (BEAKER) (test qcdt=963) 42 K/CU MM 150-450 MEAN PLATELET VOLUME (BEAKER) (test tgkl=395) 10.1 fL 9.4-12.4 NUCLEATED RED BLOOD CELLS (BEAKER) (test 0 /100 WBC 0-0 mueq=283) NEUTROPHILS RELATIVE PERCENT (BEAKER) (test 77 % vxzy=175) LYMPHOCYTES RELATIVE PERCENT (BEAKER) (test 12 % fyet=714) MONOCYTES RELATIVE PERCENT (BEAKER) (test 10 % ntkk=219) EOSINOPHILS RELATIVE PERCENT (BEAKER) (test 1 % gwrk=407) BASOPHILS RELATIVE PERCENT (BEAKER) (test 0 % ajcq=796) NEUTROPHILS ABSOLUTE COUNT (BEAKER) (test 2.21 K/ L 1.78-5.38 pjae=668) LYMPHOCYTES ABSOLUTE COUNT (BEAKER) (test 0.33 K/ L 1.32-3.57 zxcm=111) MONOCYTES ABSOLUTE COUNT (BEAKER) (test maso=454) 0.30 K/ L 0.30-0.82 EOSINOPHILS ABSOLUTE COUNT (BEAKER) (test 0.03 K/ L 0.04-0.54 vgkb=649) BASOPHILS ABSOLUTE COUNT (BEAKER) (test skhm=899) 0.00 K/ L 0.01-0.08 IMMATURE GRANULOCYTES-RELATIVE PERCENT (BEAKER) 0 % 0-1 (test swzv=6737) [id number] 06:06:00 Test Item Value Reference Range Comments PHOSPHORUS (BEAKER) (test ybjo=646) 3.6 mg/dL 2.3-4.7 [id number] 06:06:00 Test Item Value Reference Range Comments MAGNESIUM (BEAKER) (test ohlu=302) 2.0 mg/dL 1.6-2.6 BASIC METABOLIC [id number] 06:06:00 Test Item Value Reference Range Comments SODIUM (BEAKER) (test 130 meq/L 136-145 tbms=442) POTASSIUM (BEAKER) (test 4.4 meq/L 3.5-5.1 hdzh=014) CHLORIDE (BEAKER) (test 100 meq/L 98-107 hgtj=126) CO2 (BEAKER) (test 23 meq/L 22-29 yyhg=182) BLOOD UREA NITROGEN 21 mg/dL 7-21 (BEAKER) (test frel=002) CREATININE (BEAKER) (test 1.11 mg/dL 0.57-1.25 sdln=300) GLUCOSE RANDOM (BEAKER) 120 mg/dL 70-105 (test fuap=758) CALCIUM (BEAKER) (test 9.4 mg/dL 8.4-10.2 ujzp=770) EGFR (BEAKER) (test 70 mL/min/1.73 sq m ESTIMATED GFR IS NOT dftc=6682) ACCURATE CREATININE CLEARANCE IN PREDICTING GLOMERULAR FILTRATION RATE. ESTIMATED GFR IS NOT APPLICABLE FOR DIALYSIS PATIENTS. Specimen slightly ictericPROTHROMBIN [id number] 06:02:00 Test Item Value Reference Range Comments PROTIME (BEAKER) (test iqhm=570) 22.9 seconds 11.7-14.7 INR (BEAKER) (test fkhz=628) 2.0 <=5.9 RECOMMENDED COUMADIN/WARFARIN INR THERAPY RANGESSTANDARD DOSE: 2.0 - 3.0 Includes: PROPHYLAXIS forvenous thrombosis, systemic embolization; TREATMENT for venous thrombosis and/or pulmonary embolus.HIGH RISK: Target INR is 2.5-3.5 for patients with mechanical heart valves.CALCIUM, [id number] 06:01:00 Test Item Value Reference Range Comments CALCIUM IONIZED (BEAKER) (test tloc=150) 1.11 mmol/L 1.12-1.27 PH, BLOOD (BEAKER) (test eoln=9155) 7.53 CORTISOL,60 [id number] 23:20:00 Test Item Value Reference Range Comments CORTISOL BASELINE NETWORKED (BEAKER) (test 4.8 mcg/dL aaba=2596) CORTISOL 30 MINUTE NETWORKED (BEAKER) (test 9.2 mcg/dL phvv=5383) CORTISOL, 60 MINUTE (BEAKER) (test npcy=0496) 12.6 ug/dL ACTH STIMULATION TEST INTERPRETATION GUIDELINES(Synonyms: [...] study by Mindy et al (NEVAEH 2000,283( 8):3385-66), the ACTH Stimulation Test provides important prognostic [...] serum cortisollevel 60 minutes after cosyntropin administration.CORTISOL,30 [id number] 22:35:00 Test Item Value Reference Range Comments CORTISOL BASELINE NETWORKED (BEAKER) (test 4.8 mcg/dL ebkc=7946) CORTISOL, 30 MINUTE (BEAKER) (test xaoj=7073) 9.2 ug/dL ACTH STIMULATION TEST INTERPRETATION GUIDELINES(Synonyms: [...] Draw serum cortisollevel 60 minutes after cosyntropin administration.CORTISOL,[id number] 22:35:00 Test Item Value Reference Range Comments CORTISOL, BASELINE (BEAKER) (test owkz=9178) 4.8 ug/dL ACTH STIMULATION TEST INTERPRETATION GUIDELINES(Synonyms: [...] serum cortisollevel 60 minutes after cosyntropin administration.U/S, [id number] 17:54:00Reason for exam:->therapeuticFINAL REPORT History: Ascites. PROCEDURE: Following informed written consent,the patient's right lower quadrant was prepped and draped in the usual sterile manner. 2% lidocaine was given locally for anesthesia. No conscious sedation was administered. Using ultrasound guidance, a 5 Burmese one-step catheter was advanced percutaneously into the [...] Verified Date/Time: 01/05/2018 17: 54:16 Reading Location: [address] Ultrasound Reading Room [id number] 11:19:00 Test Item Value Reference Range Comments CORTISOL, TOTAL (BEAKER) (test bdgs=5411) 2.7 ug/dL 3.7-19.4 [id number] 10:21:00 Test Item Value Reference Range Comments PHOSPHORUS (BEAKER) (test sntq=625) 2.8 mg/dL 2.3-4.7 [id number] 10:21:00 Test Item Value Reference Range Comments MAGNESIUM (BEAKER) (test rpno=765) 1.9 mg/dL 1.6-2.6 BASIC METABOLIC [id number] 10:21:00 Test Item Value Reference Range Comments SODIUM (BEAKER) (test 127 meq/L 136-145 vmrb=449) POTASSIUM (BEAKER) (test 5.0 meq/L 3.5-5.1 gnad=849) CHLORIDE (BEAKER) (test 100 meq/L 98-107 ouvh=133) CO2 (BEAKER) (test 22 meq/L 22-29 gagd=970) BLOOD UREA NITROGEN 25 mg/dL 7-21 (BEAKER) (test axvl=746) CREATININE (BEAKER) (test 1.17 mg/dL 0.57-1.25 bppt=345) GLUCOSE RANDOM (BEAKER) 84 mg/dL 70-105 (test ynja=439) CALCIUM (BEAKER) (test 8.7 mg/dL 8.4-10.2 haui=245) EGFR (BEAKER) (test 65 mL/min/1.73 sq m ESTIMATED GFR IS NOT kfvx=0175) ACCURATE CREATININE CLEARANCE IN PREDICTING GLOMERULAR FILTRATION RATE. ESTIMATED GFR IS NOT APPLICABLE FOR DIALYSIS PATIENTS. Specimen slightly ictericCBC W/PLT COUNT & AUTO [id number] 08:42 :00 Test Item Value Reference Range Comments WHITE BLOOD CELL COUNT (BEAKER) (test ktfa=933) 2.7 K/ L 3.5-10.5 RED BLOOD CELL COUNT (BEAKER) (test zdge=595) 2.33 M/ L 4.63-6.08 HEMOGLOBIN (BEAKER) (test rrtj=812) 7.3 GM/DL 13.7-17.5 HEMATOCRIT (BEAKER) (test cpqj=674) 22.0 % 40.1-51.0 MEAN CORPUSCULAR VOLUME (BEAKER) (test kzpv=774) 94.4 fL 79.0-92.2 MEAN CORPUSCULAR HEMOGLOBIN (BEAKER) (test 31.3 pg 25.7-32.2 kvoq=331) MEAN CORPUSCULAR HEMOGLOBIN CONC (BEAKER) (test 33.2 GM/DL 32.3-36.5 hlgd=314) RED CELL DISTRIBUTION WIDTH (BEAKER) (test 17.2 % 11.6-14.4 rgzi=902) PLATELET COUNT (BEAKER) (test vzxr=077) 45 K/CU MM 150-450 MEAN PLATELET VOLUME (BEAKER) (test cnvy=280) 9.3 fL 9.4-12.4 NUCLEATED RED BLOOD CELLS (BEAKER) (test 0 /100 WBC 0-0 lwib=245) NEUTROPHILS RELATIVE PERCENT (BEAKER) (test 60 % tdnq=693) LYMPHOCYTES RELATIVE PERCENT (BEAKER) (test 17 % wqnj=017) MONOCYTES RELATIVE PERCENT (BEAKER) (test 16 % fhkf=927) EOSINOPHILS RELATIVE PERCENT (BEAKER) (test 6 % zeuz=783) BASOPHILS RELATIVE PERCENT (BEAKER) (test 0 % vspa=993) NEUTROPHILS ABSOLUTE COUNT (BEAKER) (test 1.63 K/ L 1.78-5.38 ahxq=582) LYMPHOCYTES ABSOLUTE COUNT (BEAKER) (test 0.45 K/ L 1.32-3.57 jpiq=170) MONOCYTES ABSOLUTE COUNT (BEAKER) (test vpab=274) 0.44 K/ L 0.30-0.82 EOSINOPHILS ABSOLUTE COUNT (BEAKER) (test 0.16 K/ L 0.04-0.54 uugu=764) BASOPHILS ABSOLUTE COUNT (BEAKER) (test rgan=964) 0.01 K/ L 0.01-0.08 IMMATURE GRANULOCYTES-RELATIVE PERCENT (BEAKER) 1 % 0-1 (test aocd=3560) (MANUAL DIFFERENTIAL)2018-01-05 08:42:00 Test Item Value Reference Range Comments TOTAL COUNTED (BEAKER) (test jefd=3745) WBC MORPHOLOGY (BEAKER) (test jqwn=506) Normal PLT MORPHOLOGY (BEAKER) (test atjd=741) Normal ANISOCYTOSIS (BEAKER) (test obdf=088) 1+ few CALCIUM, [id number] 08:10:00 Test Item Value Reference Range Comments CALCIUM IONIZED (BEAKER) (test nbtj=584) 1.08 mmol/L 1.12-1.27 PH, BLOOD (BEAKER) (test xvba=0136) 7.44 PROTHROMBIN [id number] 07:12:00 Test Item Value Reference Range Comments PROTIME (BEAKER) (test umhu=837) 22.4 seconds 11.7-14.7 INR (BEAKER) (test lvid=075) 2.0 <=5.9 RECOMMENDED COUMADIN/WARFARIN INR THERAPY RANGESSTANDARD DOSE: 2.0 - 3.0 Includes: PROPHYLAXIS forvenous thrombosis, systemic embolization; TREATMENT for venous thrombosis and/or pulmonary embolus.HIGH RISK: Target INR is 2.5-3.5 for patients with mechanical heart valves.[id number] 17:54:00 Test Item Value Reference Range Comments SODIUM (BEAKER) (test xyem=394) 129 meq/L 136-145 POTASSIUM (BEAKER) (test hhvf=857) 5.5 meq/L 3.5-5.1 CHLORIDE (BEAKER) (test ropd=199) 101 meq/L 98-107 CO2 (BEAKER) (test awoc=824) 26 meq/L 22-29 Call [id number] with resultsCBC (HEMOGRAM ONLY)2018-01-04 07:16:00 Test Item Value Reference Range Comments WHITE BLOOD CELL COUNT (BEAKER) (test lzrv=701) 2.9 K/ L 3.5-10.5 RED BLOOD CELL COUNT (BEAKER) (test edaq=977) 2.25 M/ L 4.63-6.08 HEMOGLOBIN (BEAKER) (test asub=610) 7.3 GM/DL 13.7-17.5 HEMATOCRIT (BEAKER) (test xspk=065) 21.3 % 40.1-51.0 MEAN CORPUSCULAR VOLUME (BEAKER) (test xfen=754) 94.7 fL 79.0-92.2 MEAN CORPUSCULAR HEMOGLOBIN (BEAKER) (test 32.4 pg 25.7-32.2 euoa=118) MEAN CORPUSCULAR HEMOGLOBIN CONC (BEAKER) (test 34.3 GM/DL 32.3-36.5 rtrs=256) RED CELL DISTRIBUTION WIDTH (BEAKER) (test 17.6 % 11.6-14.4 ugey=362) PLATELET COUNT (BEAKER) (test podf=163) 59 K/CU MM 150-450 MEAN PLATELET VOLUME (BEAKER) (test wlqt=389) 11.3 fL 9.4-12.4 NUCLEATED RED BLOOD CELLS (BEAKER) (test 0 /100 WBC 0-0 tigd=962) COMPREHENSIVE METABOLIC [id number] 06:49:00 Test Item Value Reference Range Comments TOTAL PROTEIN (BEAKER) 5.3 gm/dL 6.0-8.3 Specimen slightly (test ytku=219) hemolyzed ALBUMIN (BEAKER) (test 3.3 g/dL 3.5-5.0 Specimen slightly xpuz=3462) hemolyzed ALKALINE PHOSPHATASE 81 U/L 40-150 (BEAKER) (test tano=625) BILIRUBIN TOTAL (BEAKER) 2.4 mg/dL 0.2-1.2 Specimen slightly (test jlnb=866) hemolyzed SODIUM (BEAKER) (test 127 meq/L 136-145 atdd=282) POTASSIUM (BEAKER) (test 5.7 meq/L 3.5-5.1 Specimen slightly ered=215) hemolyzed CHLORIDE (BEAKER) (test 100 meq/L 98-107 nara=611) CO2 (BEAKER) (test 20 meq/L 22-29 lnvp=403) BLOOD UREA NITROGEN 22 mg/dL 7-21 (BEAKER) (test wvpi=238) CREATININE (BEAKER) (test 1.14 mg/dL 0.57-1.25 Specimen slightly kjhk=869) hemolyzed GLUCOSE RANDOM (BEAKER) 96 mg/dL 70-105 (test jotk=675) CALCIUM (BEAKER) (test 8.9 mg/dL 8.4-10.2 plfw=169) AST (SGOT) (BEAKER) (test 30 U/L 5-34 Specimen slightly prae=230) hemolyzed ALT (SGPT) (BEAKER) (test 8 U/L 6-55 Specimen slightly dpav=314) hemolyzed EGFR (BEAKER) (test 67 mL/min/1.73 sq m ESTIMATED GFR IS NOT utpy=2858) ACCURATE CREATININE CLEARANCE IN PREDICTING GLOMERULAR FILTRATION RATE. ESTIMATED GFR IS NOT APPLICABLE FOR DIALYSIS PATIENTS. Specimen slightly ictericPROTHROMBIN [id number] 06:15:00 Test Item Value Reference Range Comments PROTIME (BEAKER) (test vowa=739) 22.7 seconds 11.7-14.7 INR (BEAKER) (test ukko=177) 2.0 <=5.9 RECOMMENDED COUMADIN/WARFARIN INR THERAPY RANGESSTANDARD DOSE: 2.0 - 3.0 Includes: PROPHYLAXIS forvenous thrombosis, systemic embolization; TREATMENT for venous thrombosis and/or pulmonary embolus.HIGH RISK: Target INR is 2.5-3.5 for patients with mechanical heart valves.VITAMIN B12 AND [id number] 16:39 :00 Test Item Value Reference Range Comments VITAMIN B12 (BEAKER) (test niez=039) 829 pg/mL 213-816 FOLATE (BEAKER) (test mtav=509) 18.9 ng/mL >=7.0 CALCIUM, [id number] 07:14:00 Test Item Value Reference Range Comments CALCIUM IONIZED (BEAKER) (test petz=427) 1.08 mmol/L 1.12-1.27 PH, BLOOD (BEAKER) (test wnxd=7366) 7.41 COMPREHENSIVE METABOLIC [id number] 07:00:00 Test Item Value Reference Range Comments TOTAL PROTEIN (BEAKER) 5.0 gm/dL 6.0-8.3 (test gqax=980) ALBUMIN (BEAKER) (test 3.1 g/dL 3.5-5.0 woqt=8449) ALKALINE PHOSPHATASE 65 U/L 40-150 (BEAKER) (test rkot=766) BILIRUBIN TOTAL (BEAKER) 2.5 mg/dL 0.2-1.2 (test tspa=811) SODIUM (BEAKER) (test 127 meq/L 136-145 decg=174) POTASSIUM (BEAKER) (test 4.7 meq/L 3.5-5.1 xfcg=084) CHLORIDE (BEAKER) (test 99 meq/L 98-107 gqyy=983) CO2 (BEAKER) (test 23 meq/L 22-29 ucix=753) BLOOD UREA NITROGEN 21 mg/dL 7-21 (BEAKER) (test nxep=296) CREATININE (BEAKER) (test 1.13 mg/dL 0.57-1.25 sgun=684) GLUCOSE RANDOM (BEAKER) 92 mg/dL 70-105 (test hwkh=377) CALCIUM (BEAKER) (test 8.9 mg/dL 8.4-10.2 xixz=090) AST (SGOT) (BEAKER) (test 18 U/L 5-34 ctbd=805) ALT (SGPT) (BEAKER) (test 8 U/L 6-55 odag=701) EGFR (BEAKER) (test 68 mL/min/1.73 sq m ESTIMATED GFR IS NOT vgvp=9197) ACCURATE CREATININE CLEARANCE IN PREDICTING GLOMERULAR FILTRATION RATE. ESTIMATED GFR IS NOT APPLICABLE FOR DIALYSIS PATIENTS. [id number] 06:37:00 Test Item Value Reference Range Comments PHOSPHORUS (BEAKER) (test wtkj=090) 3.2 mg/dL 2.3-4.7 [id number] 06:37:00 Test Item Value Reference Range Comments MAGNESIUM (BEAKER) (test exwc=963) 1.9 mg/dL 1.6-2.6 CBC (HEMOGRAM ONLY)2018-01-03 06:25:00 Test Item Value Reference Range Comments WHITE BLOOD CELL COUNT (BEAKER) (test iyfq=538) 3.1 K/ L 3.5-10.5 RED BLOOD CELL COUNT (BEAKER) (test mvhj=779) 2.31 M/ L 4.63-6.08 HEMOGLOBIN (BEAKER) (test xblv=571) 7.4 GM/DL 13.7-17.5 HEMATOCRIT (BEAKER) (test xvwk=993) 21.6 % 40.1-51.0 MEAN CORPUSCULAR VOLUME (BEAKER) (test fhbk=056) 93.5 fL 79.0-92.2 MEAN CORPUSCULAR HEMOGLOBIN (BEAKER) (test 32.0 pg 25.7-32.2 xaia=242) MEAN CORPUSCULAR HEMOGLOBIN CONC (BEAKER) (test 34.3 GM/DL 32.3-36.5 oaqg=451) RED CELL DISTRIBUTION WIDTH (BEAKER) (test 17.4 % 11.6-14.4 uhzl=109) PLATELET COUNT (BEAKER) (test mnzp=187) 50 K/CU MM 150-450 MEAN PLATELET VOLUME (BEAKER) (test cukv=290) 10.5 fL 9.4-12.4 NUCLEATED RED BLOOD CELLS (BEAKER) (test 0 /100 WBC 0-0 jicu=428) PROTHROMBIN [id number] 06:09:00 Test Item Value Reference Range Comments PROTIME (BEAKER) (test dhwt=115) 22.2 seconds 11.7-14.7 INR (BEAKER) (test xgno=704) 2.0 <=5.9 RECOMMENDED COUMADIN/WARFARIN INR THERAPY RANGESSTANDARD DOSE: 2.0 - 3.0 Includes: PROPHYLAXIS forvenous thrombosis, systemic embolization; TREATMENT for venous thrombosis and/or pulmonary embolus.HIGH RISK: Target INR is 2.5-3.5 for patients with mechanical heart valves.[id number] 07:54:00 Test Item Value Reference Range Comments PHOSPHORUS (BEAKER) (test obdt=499) 3.2 mg/dL 2.3-4.7 [id number] 07:54:00 Test Item Value Reference Range Comments MAGNESIUM (BEAKER) (test mzjc=261) 1.4 mg/dL 1.6-2.6 COMPREHENSIVE METABOLIC [id number] 07:54:00 Test Item Value Reference Range Comments TOTAL PROTEIN (BEAKER) 5.3 gm/dL 6.0-8.3 (test kjsz=342) ALBUMIN (BEAKER) (test 3.4 g/dL 3.5-5.0 nsbm=8985) ALKALINE PHOSPHATASE 55 U/L 40-150 (BEAKER) (test tbcb=949) BILIRUBIN TOTAL (BEAKER) 3.9 mg/dL 0.2-1.2 (test wgmi=972) SODIUM (BEAKER) (test 131 meq/L 136-145 mdox=548) POTASSIUM (BEAKER) (test 4.3 meq/L 3.5-5.1 pymx=045) CHLORIDE (BEAKER) (test 101 meq/L 98-107 gwyf=917) CO2 (BEAKER) (test 23 meq/L 22-29 ohzj=190) BLOOD UREA NITROGEN 19 mg/dL 7-21 (BEAKER) (test odzd=075) CREATININE (BEAKER) (test 0.97 mg/dL 0.57-1.25 oitg=492) GLUCOSE RANDOM (BEAKER) 80 mg/dL 70-105 (test gzta=992) CALCIUM (BEAKER) (test 9.4 mg/dL 8.4-10.2 sfyu=159) AST (SGOT) (BEAKER) (test 17 U/L 5-34 rkbh=510) ALT (SGPT) (BEAKER) (test 8 U/L 6-55 hchc=874) EGFR (BEAKER) (test 81 mL/min/1.73 sq m ESTIMATED GFR IS NOT zjkz=2769) ACCURATE CREATININE CLEARANCE IN PREDICTING GLOMERULAR FILTRATION RATE. ESTIMATED GFR IS NOT APPLICABLE FOR DIALYSIS PATIENTS. Specimen slightly ictericCBC W/PLT COUNT & AUTO [id number] 07:14 :00 Test Item Value Reference Range Comments WHITE BLOOD CELL COUNT (BEAKER) (test pgsk=991) 2.9 K/ L 3.5-10.5 RED BLOOD CELL COUNT (BEAKER) (test plsx=095) 2.55 M/ L 4.63-6.08 HEMOGLOBIN (BEAKER) (test yfmk=159) 8.1 GM/DL 13.7-17.5 HEMATOCRIT (BEAKER) (test ezvu=992) 23.7 % 40.1-51.0 MEAN CORPUSCULAR VOLUME (BEAKER) (test ndiw=297) 92.9 fL 79.0-92.2 MEAN CORPUSCULAR HEMOGLOBIN (BEAKER) (test 31.8 pg 25.7-32.2 qsqo=175) MEAN CORPUSCULAR HEMOGLOBIN CONC (BEAKER) (test 34.2 GM/DL 32.3-36.5 hioy=330) RED CELL DISTRIBUTION WIDTH (BEAKER) (test 17.5 % 11.6-14.4 jzxb=493) PLATELET COUNT (BEAKER) (test fnng=828) 50 K/CU MM 150-450 MEAN PLATELET VOLUME (BEAKER) (test hwlt=761) 9.5 fL 9.4-12.4 NUCLEATED RED BLOOD CELLS (BEAKER) (test 0 /100 WBC 0-0 ikzu=690) NEUTROPHILS RELATIVE PERCENT (BEAKER) (test 57 % bjuo=088) LYMPHOCYTES RELATIVE PERCENT (BEAKER) (test 17 % ydyz=309) MONOCYTES RELATIVE PERCENT (BEAKER) (test 18 % fsvp=377) EOSINOPHILS RELATIVE PERCENT (BEAKER) (test 7 % mmeo=336) BASOPHILS RELATIVE PERCENT (BEAKER) (test 0 % jtld=434) NEUTROPHILS ABSOLUTE COUNT (BEAKER) (test 1.65 K/ L 1.78-5.38 ejlg=201) LYMPHOCYTES ABSOLUTE COUNT (BEAKER) (test 0.49 K/ L 1.32-3.57 acor=359) MONOCYTES ABSOLUTE COUNT (BEAKER) (test jauv=146) 0.51 K/ L 0.30-0.82 EOSINOPHILS ABSOLUTE COUNT (BEAKER) (test 0.20 K/ L 0.04-0.54 qcdt=248) BASOPHILS ABSOLUTE COUNT (BEAKER) (test rlpr=909) 0.01 K/ L 0.01-0.08 IMMATURE GRANULOCYTES-RELATIVE PERCENT (BEAKER) 1 % 0-1 (test rifo=2524) (MANUAL DIFFERENTIAL)2018-01-02 07:14:00 Test Item Value Reference Range Comments TOTAL COUNTED (BEAKER) (test timg=0788) CALCIUM, [id number] 07:04:00 Test Item Value Reference Range Comments CALCIUM IONIZED (BEAKER) (test uibt=342) 1.07 mmol/L 1.12-1.27 PH, BLOOD (BEAKER) (test sdad=9219) 7.49 PROTHROMBIN [id number] 06:42:00 Test Item Value Reference Range Comments PROTIME (BEAKER) (test cfgh=882) 24.6 seconds 11.7-14.7 INR (BEAKER) (test cmxz=637) 2.2 <=5.9 RECOMMENDED COUMADIN/WARFARIN INR THERAPY RANGESSTANDARD DOSE: 2.0 - 3.0 Includes: PROPHYLAXIS forvenous thrombosis, systemic embolization; TREATMENT for venous thrombosis and/or pulmonary embolus.HIGH RISK: Target INR is 2.5-3.5 for patients with mechanical heart valves.CYTOMEGALOVIRUS ANTIBODY, [id number] 14:58:00 Test Item Value Reference Range Comments CYTOMEGALOVIRUS IGG ANTIBODY (BEAKER) (test Positive etir=906) CYTOMEGALOVIRUS ANTIBODY, [id number] 14:58:00 Test Item Value Reference Range Comments CYTOMEGALOVIRUS IGM ANTIBODY (BEAKER) (test Negative dfvz=807) EBV-VCA ANTIBODY, [id number] 14:58:00 Test Item Value Reference Range Comments MARCELLUS-DAVIS VCA IGG (BEAKER) (test lfci=509) Positive EBV-VCA ANTIBODY, [id number] 14:58:00 Test Item Value Reference Range Comments MARCELLUS-DAVIS VCA IGM (BEAKER) (test zmhv=299) Negative BODY FLUID CELL COUNT WITH [id number] 14:27:00 Test Item Value Reference Range Comments APPEARANCE FLUID (BEAKER) (test tjyf=956) Slightly Hazy Clear COLOR FLUID (BEAKER) (test pnma=877) Yellow Colorless, Straw RBC FLUID (BEAKER) (test uwcp=171) 378 /cu mm <=1 ADJUSTED WBC FLUID (BEAKER) (test seek=6290) 84 /cu mm <=5 LINING CELLS (BEAKER) (test bces=3562) 17 /cu mm <=1 NEUTROPHILS FLUID (BEAKER) (test qpay=5327) 1 % LYMPHS FLUID (BEAKER) (test yldc=269) 14 % MONO/MACROPHAGE FLUID (BEAKER) (test 85 % nfjf=838) EOSINOPHILS FLUID (BEAKER) (test lsnn=581) 0 % BASO FLUID (BEAKER) (test pojo=973) 0 % CONTAINER BODY FLUID (BEAKER) (test EDTA Tube nhfg=4305) U/S, [id number] 11:17:00Reason for exam:->ascitesFINAL REPORT Ultrasound guided paracentesis, 01/01/2018. Clinical History:Ascites. Sedation: None. Border Measurer And Cutter: Paul Butler MD Food Porter: None. Estimated Blood Loss: < 1 cc. [...] was achieved with 1% lidocaine, a 5 Burmese one-step catheter was advanced into the peritoneal cavity under ultrasound guidance. After completion of drainage, the catheter was removed. There was no evidence ofcomplication. Patient Disposition: The patient was transferred to the inpatient unit from the ultrasound department after the paracentesis, in good condition. Impression:Successful ultrasound guided paracentesis. Signed: Paul Butler MDReport Verified Date/Time: 01/01/2018 11:17:26 Reading Location: [address] Ultrasound Reading Room CBC W/PLT COUNT & AUTO [id number] 08:55:00 Test Item Value Reference Range Comments WHITE BLOOD CELL COUNT (BEAKER) (test udkr=838) 2.6 K/ L 3.5-10.5 RED BLOOD CELL COUNT (BEAKER) (test puee=279) 2.17 M/ L 4.63-6.08 HEMOGLOBIN (BEAKER) (test tjkk=552) 6.9 GM/DL 13.7-17.5 HEMATOCRIT (BEAKER) (test wvbf=191) 20.6 % 40.1-51.0 MEAN CORPUSCULAR VOLUME (BEAKER) (test ooau=536) 94.9 fL 79.0-92.2 MEAN CORPUSCULAR HEMOGLOBIN (BEAKER) (test 31.8 pg 25.7-32.2 jlzz=108) MEAN CORPUSCULAR HEMOGLOBIN CONC (BEAKER) (test 33.5 GM/DL 32.3-36.5 bybm=329) RED CELL DISTRIBUTION WIDTH (BEAKER) (test 17.0 % 11.6-14.4 tpym=817) PLATELET COUNT (BEAKER) (test mxhg=936) 43 K/CU MM 150-450 MEAN PLATELET VOLUME (BEAKER) (test qykm=131) 9.3 fL 9.4-12.4 NUCLEATED RED BLOOD CELLS (BEAKER) (test 0 /100 WBC 0-0 ezqv=375) NEUTROPHILS RELATIVE PERCENT (BEAKER) (test 62 % lrjv=978) LYMPHOCYTES RELATIVE PERCENT (BEAKER) (test 13 % uqnc=764) MONOCYTES RELATIVE PERCENT (BEAKER) (test 18 % fnxq=693) EOSINOPHILS RELATIVE PERCENT (BEAKER) (test 6 % qvzh=713) BASOPHILS RELATIVE PERCENT (BEAKER) (test 0 % ovej=593) NEUTROPHILS ABSOLUTE COUNT (BEAKER) (test 1.58 K/ L 1.78-5.38 otct=931) LYMPHOCYTES ABSOLUTE COUNT (BEAKER) (test 0.33 K/ L 1.32-3.57 oply=041) MONOCYTES ABSOLUTE COUNT (BEAKER) (test qruo=759) 0.46 K/ L 0.30-0.82 EOSINOPHILS ABSOLUTE COUNT (BEAKER) (test 0.15 K/ L 0.04-0.54 vixe=298) BASOPHILS ABSOLUTE COUNT (BEAKER) (test mhne=653) 0.01 K/ L 0.01-0.08 IMMATURE GRANULOCYTES-RELATIVE PERCENT (BEAKER) 1 % 0-1 (test flnj=8335) (MANUAL DIFFERENTIAL)2018-01-01 08:55:00 Test Item Value Reference Range Comments TOTAL COUNTED (BEAKER) (test zwfu=2135) CALCIUM, [id number] 07:43:00 Test Item Value Reference Range Comments CALCIUM IONIZED (BEAKER) (test huok=462) 1.14 mmol/L 1.12-1.27 PH, BLOOD (BEAKER) (test ubog=5061) 7.52 [id number] 06:11:00 Test Item Value Reference Range Comments PHOSPHORUS (BEAKER) (test qgki=222) 2.5 mg/dL 2.3-4.7 [id number] 06:11:00 Test Item Value Reference Range Comments MAGNESIUM (BEAKER) (test ydyj=257) 1.7 mg/dL 1.6-2.6 COMPREHENSIVE METABOLIC [id number] 06:11:00 Test Item Value Reference Range Comments TOTAL PROTEIN (BEAKER) 5.6 gm/dL 6.0-8.3 (test sicf=973) ALBUMIN (BEAKER) (test 3.6 g/dL 3.5-5.0 ryjh=1673) ALKALINE PHOSPHATASE 68 U/L 40-150 (BEAKER) (test bmfp=209) BILIRUBIN TOTAL (BEAKER) 2.7 mg/dL 0.2-1.2 (test qlyt=760) SODIUM (BEAKER) (test 132 meq/L 136-145 rojf=552) POTASSIUM (BEAKER) (test 4.9 meq/L 3.5-5.1 nsfu=400) CHLORIDE (BEAKER) (test 102 meq/L 98-107 itvv=772) CO2 (BEAKER) (test 24 meq/L 22-29 gnio=973) BLOOD UREA NITROGEN 20 mg/dL 7-21 (BEAKER) (test fyyf=777) CREATININE (BEAKER) (test 1.17 mg/dL 0.57-1.25 dlxq=882) GLUCOSE RANDOM (BEAKER) 92 mg/dL 70-105 (test sjqz=298) CALCIUM (BEAKER) (test 9.7 mg/dL 8.4-10.2 awoh=633) AST (SGOT) (BEAKER) (test 16 U/L 5-34 gxsh=890) ALT (SGPT) (BEAKER) (test 8 U/L 6-55 qfcv=900) EGFR (BEAKER) (test 65 mL/min/1.73 sq m ESTIMATED GFR IS NOT xwgh=6113) ACCURATE CREATININE CLEARANCE IN PREDICTING GLOMERULAR FILTRATION RATE. ESTIMATED GFR IS NOT APPLICABLE FOR DIALYSIS PATIENTS. Specimen slightly ictericPROTHROMBIN [id number] 06:00:00 Test Item Value Reference Range Comments PROTIME (TUNG) (test qovm=156) 24.0 seconds 11.7-14.7 INR (TUNG) (test kads=144) 2.2 <=5.9 RECOMMENDED COUMADIN/WARFARIN INR THERAPY RANGESSTANDARD DOSE: 2.0 - 3.0 Includes: PROPHYLAXIS forvenous thrombosis, systemic embolization; TREATMENT for venous thrombosis and/or pulmonary embolus.HIGH RISK: Target INR is 2.5-3.5 for patients with mechanical heart valves.CT, CHEST, WITHOUT [id number] 19:24:00FINAL REPORT HISTORY: Lung nodule, >=1cm COMPARISON [...] MDReport Verified Date/Time: 12/31/2017 19:24:12 Reading Location: [facility] [id number] Consult Reading Room 07: 24 PMPERIPHERAL BLOOD SMEAR - HOLD [id number] 19:18:00 Test Item Value Reference Range Comments PERIPHERAL SMEAR SAVE (BEAKER) prepared and saved smear, (test atzb=1110) 12/31/17 RETICULOCYTE [id number] 19:14:00 Test Item Value Reference Range Comments RETICULOCYTE COUNT PCT (BEAKER) (test ykgr=385) 3.5 % 0.5-1.8 LACTATE DEHYDROGENASE (LDH)2017-12-31 17:47:00 Test Item Value Reference Range Comments LACTATE DEHYDROGENASE (BEAKER) (test vjmi=284) 112 U/L 125-220 BLOOD GAS, [id number] 17:27:00 Test Item Value Reference Range Comments PH ARTERIAL (BEAKER) (test ikzl=589) 7.45 7.35-7.45 PCO2 ARTERIAL (BEAKER) (test raxz=491) 36 mmHg 35-45 PO2 ARTERIAL (BEAKER) (test sknp=903) 76 mmHg 80-90 O2 SATURATION ARTERIAL (BEAKER) (test vdus=204) 96.1 % 96.0-97.0 HCO3 ARTERIAL (BEAKER) (test tglf=964) 24 mmol/L 21-29 BASE EXCESS ARTERIAL (BEAKER) (test bist=490) 0.2 mmol/L -2.0-3.0 PATIENT TEMPERATURE (BEAKER) (test rdzy=9507) 36.4 C FIO2 (BEAKER) (test ubih=8354) 21.0 % MYOCARD IMAGING, MULTI, PHARM, [id number] 15:12:00FINAL REPORT PROCEDURE: Rest/Stress MYOCARDIAL PERFUSION SPECT with regadenoson\\XA9\\ CPT CODE: 43693 INDICATION: Liver transplant evaluation HISTORY: Cardiac risk [...] [place] Verified Date/Time: 12/31/2017 15:12:03 Reading Location: [address] Reading Room BILIRUBIN, [id number] 14:10:00 Test Item Value Reference Range Comments BILIRUBIN DIRECT (BEAKER) (test picv=743) 1.6 mg/dL 0.1-0.5 HEMOGLOBIN AND [id number] 13:22:00 Test Item Value Reference Range Comments HEMOGLOBIN (BEAKER) (test mltg=391) 7.3 GM/DL 13.7-17.5 HEMATOCRIT (BEAKER) (test vvfu=761) 21.9 % 40.1-51.0 CBC W/PLT COUNT & AUTO [id number] 11:06:00 Test Item Value Reference Range Comments WHITE BLOOD CELL COUNT (BEAKER) (test dyjb=057) 2.2 K/ L 3.5-10.5 RED BLOOD CELL COUNT (BEAKER) (test hbnh=072) 2.07 M/ L 4.63-6.08 HEMOGLOBIN (BEAKER) (test mupu=528) 6.8 GM/DL 13.7-17.5 HEMATOCRIT (BEAKER) (test wvwe=835) 19.6 % 40.1-51.0 MEAN CORPUSCULAR VOLUME (BEAKER) (test flnw=400) 94.7 fL 79.0-92.2 MEAN CORPUSCULAR HEMOGLOBIN (BEAKER) (test 32.9 pg 25.7-32.2 uldj=430) MEAN CORPUSCULAR HEMOGLOBIN CONC (BEAKER) (test 34.7 GM/DL 32.3-36.5 wtru=356) RED CELL DISTRIBUTION WIDTH (BEAKER) (test 16.9 % 11.6-14.4 nxwa=608) PLATELET COUNT (BEAKER) (test jcwz=898) 47 K/CU MM 150-450 MEAN PLATELET VOLUME (BEAKER) (test ivxi=585) 9.7 fL 9.4-12.4 NUCLEATED RED BLOOD CELLS (BEAKER) (test 0 /100 WBC 0-0 majv=192) NEUTROPHILS RELATIVE PERCENT (BEAKER) (test 54 % cvdg=627) LYMPHOCYTES RELATIVE PERCENT (BEAKER) (test 17 % mmpw=056) MONOCYTES RELATIVE PERCENT (BEAKER) (test 21 % gpsw=723) EOSINOPHILS RELATIVE PERCENT (BEAKER) (test 8 % zjyv=887) BASOPHILS RELATIVE PERCENT (BEAKER) (test 1 % ihgr=341) NEUTROPHILS ABSOLUTE COUNT (BEAKER) (test 1.17 K/ L 1.78-5.38 trjy=109) LYMPHOCYTES ABSOLUTE COUNT (BEAKER) (test 0.36 K/ L 1.32-3.57 bugh=142) MONOCYTES ABSOLUTE COUNT (BEAKER) (test kfmn=284) 0.45 K/ L 0.30-0.82 EOSINOPHILS ABSOLUTE COUNT (BEAKER) (test 0.17 K/ L 0.04-0.54 eqpj=551) BASOPHILS ABSOLUTE COUNT (BEAKER) (test xavi=980) 0.01 K/ L 0.01-0.08 IMMATURE GRANULOCYTES-RELATIVE PERCENT (BEAKER) 1 % 0-1 (test mmso=5406) (MANUAL DIFFERENTIAL)2017-12-31 11:06:00 Test Item Value Reference Range Comments TOTAL COUNTED (BEAKER) (test xalt=2962) [id number] 08:37:00 Test Item Value Reference Range Comments PROTIME (BEAKER) (test yxji=916) 24.0 seconds 11.7-14.7 INR (BEAKER) (test sflp=057) 2.2 <=5.9 PARTIAL THROMBOPLASTIN TIME (BEAKER) (test 55.2 seconds 22.5-36.0 ucqr=749) RECOMMENDED COUMADIN/WARFARIN INR THERAPY RANGESSTANDARD DOSE: 2.0 - 3.0 Includes: PROPHYLAXIS forvenous thrombosis, systemic embolization; TREATMENT for venous thrombosis and/or pulmonary embolus.HIGH RISK: Target INR is 2.5-3.5 for patients with mechanical heart valves.COMPREHENSIVE METABOLIC [id number] 06:37:00 Test Item Value Reference Range Comments TOTAL PROTEIN (BEAKER) 5.7 gm/dL 6.0-8.3 (test ixcb=914) ALBUMIN (BEAKER) (test 3.7 g/dL 3.5-5.0 hlgi=6268) ALKALINE PHOSPHATASE 70 U/L 40-150 (BEAKER) (test rmeq=033) BILIRUBIN TOTAL (BEAKER) 2.6 mg/dL 0.2-1.2 (test jodu=772) SODIUM (BEAKER) (test 130 meq/L 136-145 xaom=969) POTASSIUM (BEAKER) (test 5.2 meq/L 3.5-5.1 muox=369) CHLORIDE (BEAKER) (test 100 meq/L 98-107 ndtr=305) CO2 (BEAKER) (test 25 meq/L 22-29 jkyh=150) BLOOD UREA NITROGEN 20 mg/dL 7-21 (BEAKER) (test djfg=369) CREATININE (BEAKER) (test 1.08 mg/dL 0.57-1.25 rzjf=363) GLUCOSE RANDOM (BEAKER) 91 mg/dL 70-105 (test lyls=565) CALCIUM (BEAKER) (test 9.6 mg/dL 8.4-10.2 bkmp=993) AST (SGOT) (BEAKER) (test 16 U/L 5-34 nyht=083) ALT (SGPT) (BEAKER) (test 6 U/L 6-55 usok=790) EGFR (BEAKER) (test 72 mL/min/1.73 sq m ESTIMATED GFR IS NOT msts=9609) ACCURATE CREATININE CLEARANCE IN PREDICTING GLOMERULAR FILTRATION RATE. ESTIMATED GFR IS NOT APPLICABLE FOR DIALYSIS PATIENTS. Specimen slightly [id number] 06:01:00 Test Item Value Reference Range Comments RPR SCREEN (BEAKER) (test pill=838) Nonreactive Nonreactive CRYPTOCOCCAL [id number] 05:59:00 Test Item Value Reference Range Comments CRYPTOCOCCAL ANTIGEN, SERUM (BEAKER) (test Negative Negative, Interference tdsl=3027) RAD, MANDIBLE, MIN 4 [id number] 01:37:00Reason for exam:->liver transplant evalShould this be [...] [place] Verified Date/Time: 12/31/2017 01:37:57 Reading Location: [address] Reading Room Electronically signed by: SLICK BARCENAS M.D. on 04/2018 01:37 AMRAD, CHEST, 2 [id number] 23:32:00Reason for exam:-> liver transplant evalShould this [...] MDReport Verified Date/Time: 12/30/2017 23:32:31 Reading Location: [address] Reading Room HEMOGLOBIN [id number] 22:54:00 Test Item Value Reference Range Comments HEMOGLOBIN A1C (BEAKER) (test riig=904) 4.1 % 4.3-6.1 HEPATITIS B SURFACE [id number] 16:31:00 Test Item Value Reference Range Comments HEPATITIS B SURFACE ANTIBODY (BEAKER) (test < mIU/mL <8.0 erpn=895) HEPATITIS B SURFACE [id number] 16:29:00 Test Item Value Reference Range Comments HEPATITIS B SURFACE ANTIGEN (2) (BEAKER) (test Nonreactive Nonreactive mdsa=2157) HEPATITIS B CORE ANTIBODY, [id number] 16:29:00 Test Item Value Reference Range Comments HEPATITIS B CORE IGM ANTIBODY (BEAKER) (test Nonreactive Nonreactive ooml=714) HEPATITIS A ANTIBODY, [id number] 16:29:00 Test Item Value Reference Range Comments HEPATITIS A IGM ANTIBODY (BEAKER) (test Nonreactive Nonreactive gabx=656) HEPATITIS B CORE ANTIBODY, [id number] 16:29:00 Test Item Value Reference Range Comments HEPATITIS B CORE TOTAL ANTIBODY (BEAKER) (test Nonreactive Nonreactive xkbp=707) [id number] 16:26:00 Test Item Value Reference Range Comments T4 TOTAL (BEAKER) (test emnk=238) 3.5 ug/dL 4.9-11.7 [id number] 16:26:00 Test Item Value Reference Range Comments T3 TOTAL (BEAKER) (test pyjy=672) 42 ng/dL 48-159 [id number] 16:24:00 Test Item Value Reference Range Comments FERRITIN (BEAKER) (test wtqr=367) 1460 ng/mL 5-275 VITAMIN D, [id number] 16:24:00 Test Item Value Reference Range Comments VITAMIN D 25-OH (BEAKER) (test npxz=0677) 6.9 ng/mL 6.6-49.9 Effective 08/06/2017: Reference Range ChangeNew: 6.6-49.9 ng/mL Previous: 13.0 -47.8 ng/mLRecommended Vitamin D Target Range: 30.0-40.0 ng/[id number] 16: 24:00 Test Item Value Reference Range Comments THYROID STIMULATING HORMONE (BEAKER) (test 1.55 uIU/mL 0.35-4.94 srys=002) CARCINOEMBRYONIC ANTIGEN (CEA)2017-12-30 16:24:00 Test Item Value Reference Range Comments CARCINOEMBRYONIC ANTIGEN (BEAKER) (test jkyz=677) 3.0 ng/mL 0.0-5.0 [id number] 16:23:00 Test Item Value Reference Range Comments PROSTATE SPECIFIC ANTIGEN (BEAKER) (test qqxs=216) 0.1 ng/mL 0.0-4.0 HIV-1 ANTIGEN WITH HIV-1/2 [id number] 16:23:00 Test Item Value Reference Range Comments HIV-1 ANTIGEN WITH HIV 1\\T\\2 ANTIBODY (2) Nonreactive Nonreactive (BEAKER) (test gxrd=0972) HEPATITIS C [id number] 16:23:00 Test Item Value Reference Range Comments HEPATITIS C ANTIBODY (BEAKER) (test gbts=711) Nonreactive Nonreactive LIPID [id number] 16:06:00 Test Item Value Reference Range Comments TRIGLYCERIDES (BEAKER) (test lqgi=857) 38 mg/dL CHOLESTEROL (BEAKER) (test wcji=951) 51 mg/dL HDL CHOLESTEROL (BEAKER) (test fwss=193) 10 mg/dL LDL CHOLESTEROL CALCULATED (BEAKER) (test uwyi=586) 33 mg/dL Triglyceride Reference Range: Low Risk [...] Value Reference Range Comments IRON (BEAKER) (test owkz=198) 90 ug/dL 40-160 TOTAL IRON BINDING CAPACITY (BEAKER) (test 85 ug/dL 250-450 zakr=901) IRON % SATURATION (2) (BEAKER) (test xemq=0788) 106 % 20-55 [id number] 16:04:00 Test Item Value Reference Range Comments TRANSFERRIN (BEAKER) (test nxex=134) 65 mg/dL 174-382 Specimen slightly ictericURIC [id number] 16:02:00 Test Item Value Reference Range Comments URIC ACID (BEAKER) (test wybh=082) 8.5 mg/dL 2.6-7.2 Specimen slightly [id number] 15:50:00 Test Item Value Reference Range Comments FIBRINOGEN LEVEL (BEAKER) (test vxzb=149) 161 mg/dl 225-434 BODY FLUID CULTURE + GRAM [id number] 11:45:00 Test Item Value Reference Range Comments CULTURE (BEAKER) (test qghs=4630) No growth GRAM STAIN RESULT (BEAKER) (test No WBCs msgo=4085) GRAM STAIN RESULT (BEAKER) (test No organisms seen yckh=14941) CBC W/PLT COUNT & AUTO [id number] 08:05:00 Test Item Value Reference Range Comments WHITE BLOOD CELL COUNT (BEAKER) (test zlfs=665) 2.0 K/ L 3.5-10.5 RED BLOOD CELL COUNT (BEAKER) (test oogv=953) 2.20 M/ L 4.63-6.08 HEMOGLOBIN (BEAKER) (test jdld=470) 7.1 GM/DL 13.7-17.5 HEMATOCRIT (BEAKER) (test ysdi=178) 20.8 % 40.1-51.0 MEAN CORPUSCULAR VOLUME (BEAKER) (test xjrn=403) 94.5 fL 79.0-92.2 MEAN CORPUSCULAR HEMOGLOBIN (BEAKER) (test 32.3 pg 25.7-32.2 pmqv=360) MEAN CORPUSCULAR HEMOGLOBIN CONC (BEAKER) (test 34.1 GM/DL 32.3-36.5 fszx=891) RED CELL DISTRIBUTION WIDTH (BEAKER) (test 17.0 % 11.6-14.4 vqed=691) PLATELET COUNT (BEAKER) (test zqkd=429) 52 K/CU MM 150-450 MEAN PLATELET VOLUME (BEAKER) (test jalb=700) 10.7 fL 9.4-12.4 NUCLEATED RED BLOOD CELLS (BEAKER) (test 0 /100 WBC 0-0 uktm=565) NEUTROPHILS RELATIVE PERCENT (BEAKER) (test 55 % wqyw=292) LYMPHOCYTES RELATIVE PERCENT (BEAKER) (test 16 % wnuu=868) MONOCYTES RELATIVE PERCENT (BEAKER) (test 20 % pejg=693) EOSINOPHILS RELATIVE PERCENT (BEAKER) (test 8 % leqc=351) BASOPHILS RELATIVE PERCENT (BEAKER) (test 1 % xbvl=573) NEUTROPHILS ABSOLUTE COUNT (BEAKER) (test 1.10 K/ L 1.78-5.38 ymbv=649) LYMPHOCYTES ABSOLUTE COUNT (BEAKER) (test 0.32 K/ L 1.32-3.57 nbvm=506) MONOCYTES ABSOLUTE COUNT (BEAKER) (test hpkv=217) 0.40 K/ L 0.30-0.82 EOSINOPHILS ABSOLUTE COUNT (BEAKER) (test 0.16 K/ L 0.04-0.54 nukq=363) BASOPHILS ABSOLUTE COUNT (BEAKER) (test glsc=420) 0.01 K/ L 0.01-0.08 IMMATURE GRANULOCYTES-RELATIVE PERCENT (BEAKER) 1 % 0-1 (test lawl=7042) (MANUAL DIFFERENTIAL)2017-12-30 08:05:00 Test Item Value Reference Range Comments TOTAL COUNTED (BEAKER) (test ksxu=4758) URINALYSIS W/ [id number] 06:46:00 Test Item Value Reference Range Comments COLOR (BEAKER) (test rbgp=152) Yellow CLARITY (BEAKER) (test vyrp=118) Clear SPECIFIC GRAVITY UA (BEAKER) (test sbpf=417) 1.008 1.001-1.035 PH UA (BEAKER) (test pifa=816) 6.0 5.0-8.0 PROTEIN UA (BEAKER) (test dewx=588) Negative Negative GLUCOSE UA (BEAKER) (test hdoc=021) Negative Negative KETONES UA (BEAKER) (test msix=226) Negative Negative BILIRUBIN UA (BEAKER) (test apcy=160) Negative Negative BLOOD UA (BEAKER) (test ipqi=122) Negative Negative NITRITE UA (BEAKER) (test pklk=382) Negative Negative LEUKOCYTE ESTERASE UA (BEAKER) (test szvc=194) Negative Negative UROBILINOGEN UA (BEAKER) (test whqe=700) 0.2 mg/dL 0.2-1.0 RBC UA (BEAKER) (test oauw=029) 0 /HPF WBC UA (BEAKER) (test pfco=825) 0 /HPF HYALINE CASTS (BEAKER) (test acxh=585) 5 /LPF SOURCE(BEAKER) (test upee=2591) Urine, Voided SODIUM, RANDOM [id number] 06:35:00 Test Item Value Reference Range Comments SODIUM URINE (BEAKER) (test oacd=482) < meq/L Reference Range: No NormalsPROTEIN, RANDOM [id number] 06:35:00 Test Item Value Reference Range Comments PROTEIN, URINE (BEAKER) (test xboz=2112) < mg/dL 0-14 [id number] 06:21:00 Test Item Value Reference Range Comments MAGNESIUM (BEAKER) (test 1.8 mg/dL 1.6-2.6 Specimen slightly hemolyzed ztcz=953) [id number] 06:21:00 Test Item Value Reference Range Comments PHOSPHORUS (BEAKER) (test 2.9 mg/dL 2.3-4.7 Specimen slightly hemolyzed htoe=018) COMPREHENSIVE METABOLIC [id number] 06:21:00 Test Item Value Reference Range Comments TOTAL PROTEIN (BEAKER) 5.6 gm/dL 6.0-8.3 Specimen slightly (test pivz=978) hemolyzed ALBUMIN (BEAKER) (test 3.5 g/dL 3.5-5.0 Specimen slightly meor=8693) hemolyzed ALKALINE PHOSPHATASE 75 U/L 40-150 (BEAKER) (test zllb=776) BILIRUBIN TOTAL (BEAKER) 3.0 mg/dL 0.2-1.2 Specimen slightly (test udgn=348) hemolyzed SODIUM (BEAKER) (test 127 meq/L 136-145 ocxn=578) POTASSIUM (BEAKER) (test 5.2 meq/L 3.5-5.1 Specimen slightly dsrf=861) hemolyzed CHLORIDE (BEAKER) (test 97 meq/L 98-107 pvnm=092) CO2 (BEAKER) (test 24 meq/L 22-29 akhg=364) BLOOD UREA NITROGEN 22 mg/dL 7-21 (BEAKER) (test zstf=961) CREATININE (BEAKER) (test 1.11 mg/dL 0.57-1.25 Specimen slightly huwu=260) hemolyzed GLUCOSE RANDOM (BEAKER) 94 mg/dL 70-105 (test vfxk=174) CALCIUM (BEAKER) (test 9.4 mg/dL 8.4-10.2 xchl=856) AST (SGOT) (BEAKER) (test 22 U/L 5-34 Specimen slightly gtcq=211) hemolyzed ALT (SGPT) (BEAKER) (test 7 U/L 6-55 Specimen slightly fgvg=696) hemolyzed EGFR (BEAKER) (test 70 mL/min/1.73 sq m ESTIMATED GFR IS NOT xmog=2789) ACCURATE CREATININE CLEARANCE IN PREDICTING GLOMERULAR FILTRATION RATE. ESTIMATED GFR IS NOT APPLICABLE FOR DIALYSIS PATIENTS. Specimen slightly ictericCREATININE, RANDOM [id number] 06:19:00 Test Item Value Reference Range Comments CREATININE URINE (BEAKER) (test ptkh=293) 60.6 mg/dL Reference Range: No [id number] 13:43:00 Test Item Value Reference Range Comments ETHANOL (BEAKER) (test zqph=144) < mg/dL <=10 COMPREHENSIVE METABOLIC [id number] 08:23:00 Test Item Value Reference Range Comments TOTAL PROTEIN (BEAKER) 5.5 gm/dL 6.0-8.3 (test vsfs=385) ALBUMIN (BEAKER) (test 3.3 g/dL 3.5-5.0 lymt=3592) ALKALINE PHOSPHATASE 85 U/L 40-150 (BEAKER) (test rjdo=747) BILIRUBIN TOTAL (BEAKER) 3.8 mg/dL 0.2-1.2 (test upcp=345) SODIUM (BEAKER) (test 125 meq/L 136-145 owfq=590) POTASSIUM (BEAKER) (test 4.7 meq/L 3.5-5.1 gtvq=834) CHLORIDE (BEAKER) (test 96 meq/L 98-107 akzs=381) CO2 (BEAKER) (test 21 meq/L 22-29 gxfw=833) BLOOD UREA NITROGEN 22 mg/dL 7-21 (BEAKER) (test sdjz=358) CREATININE (BEAKER) (test 1.26 mg/dL 0.57-1.25 bute=363) GLUCOSE RANDOM (BEAKER) 95 mg/dL 70-105 (test fpmb=461) CALCIUM (BEAKER) (test 9.1 mg/dL 8.4-10.2 ghpb=319) AST (SGOT) (BEAKER) (test 20 U/L 5-34 glkx=274) ALT (SGPT) (BEAKER) (test 8 U/L 6-55 fsmk=774) EGFR (BEAKER) (test 60 mL/min/1.73 sq m ESTIMATED GFR IS NOT eatq=2231) ACCURATE CREATININE CLEARANCE IN PREDICTING GLOMERULAR FILTRATION RATE. ESTIMATED GFR IS NOT APPLICABLE FOR DIALYSIS PATIENTS. Specimen slightly ictericCBC W/PLT COUNT & AUTO [id number] 07:17 :00 Test Item Value Reference Range Comments WHITE BLOOD CELL COUNT (BEAKER) (test wcaj=946) 2.8 K/ L 3.5-10.5 RED BLOOD CELL COUNT (BEAKER) (test tcnz=139) 2.28 M/ L 4.63-6.08 HEMOGLOBIN (BEAKER) (test sncs=844) 7.3 GM/DL 13.7-17.5 HEMATOCRIT (BEAKER) (test mzyq=085) 21.4 % 40.1-51.0 MEAN CORPUSCULAR VOLUME (BEAKER) (test jxrp=123) 93.9 fL 79.0-92.2 MEAN CORPUSCULAR HEMOGLOBIN (BEAKER) (test 32.0 pg 25.7-32.2 mssp=654) MEAN CORPUSCULAR HEMOGLOBIN CONC (BEAKER) (test 34.1 GM/DL 32.3-36.5 qlin=998) RED CELL DISTRIBUTION WIDTH (BEAKER) (test 16.9 % 11.6-14.4 axqm=566) PLATELET COUNT (BEAKER) (test dtnx=718) 52 K/CU MM 150-450 MEAN PLATELET VOLUME (BEAKER) (test mckz=736) 9.8 fL 9.4-12.4 NUCLEATED RED BLOOD CELLS (BEAKER) (test 0 /100 WBC 0-0 ehww=185) NEUTROPHILS RELATIVE PERCENT (BEAKER) (test 61 % wqns=869) LYMPHOCYTES RELATIVE PERCENT (BEAKER) (test 14 % rgat=264) MONOCYTES RELATIVE PERCENT (BEAKER) (test 18 % biyl=450) EOSINOPHILS RELATIVE PERCENT (BEAKER) (test 7 % tmxw=841) BASOPHILS RELATIVE PERCENT (BEAKER) (test 0 % wtxl=555) NEUTROPHILS ABSOLUTE COUNT (BEAKER) (test 1.69 K/ L 1.78-5.38 snvc=482) LYMPHOCYTES ABSOLUTE COUNT (BEAKER) (test 0.38 K/ L 1.32-3.57 cvmr=980) MONOCYTES ABSOLUTE COUNT (BEAKER) (test qjri=497) 0.51 K/ L 0.30-0.82 EOSINOPHILS ABSOLUTE COUNT (BEAKER) (test 0.18 K/ L 0.04-0.54 qiwt=350) BASOPHILS ABSOLUTE COUNT (BEAKER) (test fuaf=082) 0.01 K/ L 0.01-0.08 IMMATURE GRANULOCYTES-RELATIVE PERCENT (BEAKER) 1 % 0-1 (test xxfa=3370) CT, [id number] 22:20:00FINAL REPORT EXAM: CT of the abdomen [...] MDReport Verified Date/Time: 12/28/2017 22:20:52 Reading Location: [address] Transitional Reading Room CBC W/PLT COUNT & AUTO [id number] 18:06:00 Test Item Value Reference Range Comments WHITE BLOOD CELL COUNT (BEAKER) (test sjrf=289) 2.9 K/ L 3.5-10.5 RED BLOOD CELL COUNT (BEAKER) (test niea=897) 2.03 M/ L 4.63-6.08 HEMOGLOBIN (BEAKER) (test mavo=586) 6.5 GM/DL 13.7-17.5 HEMATOCRIT (BEAKER) (test xgun=241) 19.2 % 40.1-51.0 MEAN CORPUSCULAR VOLUME (BEAKER) (test hwbl=045) 94.6 fL 79.0-92.2 MEAN CORPUSCULAR HEMOGLOBIN (BEAKER) (test 32.0 pg 25.7-32.2 dawu=498) MEAN CORPUSCULAR HEMOGLOBIN CONC (BEAKER) (test 33.9 GM/DL 32.3-36.5 abjm=775) RED CELL DISTRIBUTION WIDTH (BEAKER) (test 17.6 % 11.6-14.4 nutl=455) PLATELET COUNT (BEAKER) (test buzh=062) 46 K/CU MM 150-450 MEAN PLATELET VOLUME (BEAKER) (test wohk=856) 9.3 fL 9.4-12.4 NUCLEATED RED BLOOD CELLS (BEAKER) (test 0 /100 WBC 0-0 ymmb=926) NEUTROPHILS RELATIVE PERCENT (BEAKER) (test 66 % fwtq=357) LYMPHOCYTES RELATIVE PERCENT (BEAKER) (test 12 % lznp=306) MONOCYTES RELATIVE PERCENT (BEAKER) (test 15 % felt=380) EOSINOPHILS RELATIVE PERCENT (BEAKER) (test 6 % usla=923) BASOPHILS RELATIVE PERCENT (BEAKER) (test 0 % rmod=265) NEUTROPHILS ABSOLUTE COUNT (BEAKER) (test 1.92 K/ L 1.78-5.38 vjxw=546) LYMPHOCYTES ABSOLUTE COUNT (BEAKER) (test 0.36 K/ L 1.32-3.57 qmnt=124) MONOCYTES ABSOLUTE COUNT (BEAKER) (test iunf=329) 0.44 K/ L 0.30-0.82 EOSINOPHILS ABSOLUTE COUNT (BEAKER) (test 0.16 K/ L 0.04-0.54 ysem=835) BASOPHILS ABSOLUTE COUNT (BEAKER) (test ngax=704) 0.01 K/ L 0.01-0.08 IMMATURE GRANULOCYTES-RELATIVE PERCENT (BEAKER) 1 % 0-1 (test jidp=0958) CBC W/PLT COUNT & AUTO [id number] 12:30:00 Test Item Value Reference Range Comments WHITE BLOOD CELL COUNT (BEAKER) (test wvep=187) 3.1 K/ L 3.5-10.5 RED BLOOD CELL COUNT (BEAKER) (test pgcg=895) 2.09 M/ L 4.63-6.08 HEMOGLOBIN (BEAKER) (test ypwj=641) 6.8 GM/DL 13.7-17.5 HEMATOCRIT (BEAKER) (test iuny=304) 19.9 % 40.1-51.0 MEAN CORPUSCULAR VOLUME (BEAKER) (test oshj=409) 95.2 fL 79.0-92.2 MEAN CORPUSCULAR HEMOGLOBIN (BEAKER) (test 32.5 pg 25.7-32.2 lefa=871) MEAN CORPUSCULAR HEMOGLOBIN CONC (BEAKER) (test 34.2 GM/DL 32.3-36.5 rlzi=086) RED CELL DISTRIBUTION WIDTH (BEAKER) (test 17.5 % 11.6-14.4 piqs=506) PLATELET COUNT (BEAKER) (test ebpd=065) 65 K/CU MM 150-450 MEAN PLATELET VOLUME (BEAKER) (test zuop=762) 10.6 fL 9.4-12.4 NUCLEATED RED BLOOD CELLS (BEAKER) (test 0 /100 WBC 0-0 breh=712) NEUTROPHILS RELATIVE PERCENT (BEAKER) (test 60 % fgdq=933) LYMPHOCYTES RELATIVE PERCENT (BEAKER) (test 14 % clol=062) MONOCYTES RELATIVE PERCENT (BEAKER) (test 17 % lvtf=188) EOSINOPHILS RELATIVE PERCENT (BEAKER) (test 8 % xpcs=825) BASOPHILS RELATIVE PERCENT (BEAKER) (test 0 % eyfa=809) NEUTROPHILS ABSOLUTE COUNT (BEAKER) (test 1.85 K/ L 1.78-5.38 xtiq=241) LYMPHOCYTES ABSOLUTE COUNT (BEAKER) (test 0.42 K/ L 1.32-3.57 irxz=703) MONOCYTES ABSOLUTE COUNT (BEAKER) (test laaa=784) 0.52 K/ L 0.30-0.82 EOSINOPHILS ABSOLUTE COUNT (BEAKER) (test 0.26 K/ L 0.04-0.54 ftjk=815) BASOPHILS ABSOLUTE COUNT (BEAKER) (test ocoj=842) 0.01 K/ L 0.01-0.08 IMMATURE GRANULOCYTES-RELATIVE PERCENT (BEAKER) 1 % 0-1 (test kovg=1605) U/S, [id number] 06:59:00Limit fluid removal to no more than 5 litersReason for exam:->ascites, concern for sbpShould thisbe performed at the bedside?->NoFINAL REPORT Paracentesis dated 2017 Procedure: Ultrasound-guided paracentesis. Preprocedure diagnosis: Ascites Postprocedure diagnosis: Ascites Conscious sedation: None. Radiologist: Lena Lynn M.D. Food Porter: None Anesthesia: 1% Xylocaine mixed with sodium bicarbonate local anesthesia. Technique: After obtaining informed consent, ultrasound-guided paracentesis was performed under usual sterile technique. Using a 5 frisian drainage catheter, puncture was made in the right lower quadrant abdomen. Approximately 5000 cc of serous fluid was removed. Patient tolerated the procedure well without complication. Complication: None Graft/ Implant: None Estimated Blood Loss: NoneImpression: Ultrasound-guided paracentesis. Signed: Lena Lynn MDReport Verified Date/Time: 12/28/2017 06:59 :16 Reading Location: [facility] B1 C013Y CT Body Reading Room ALPHA FETOPROTEIN (AFP), TUMOR [id number] 06:22:00 Test Item Value Reference Range Comments ALPHA-FETOPROTEIN (BEAKER) (test rduu=1467) 4.1 ng/mL <10.0 COMPREHENSIVE METABOLIC [id number] 06:00:00 Test Item Value Reference Range Comments TOTAL PROTEIN (BEAKER) 5.3 gm/dL 6.0-8.3 (test ifuh=562) ALBUMIN (BEAKER) (test 2.7 g/dL 3.5-5.0 wfqw=2662) ALKALINE PHOSPHATASE 94 U/L 40-150 (BEAKER) (test ouzg=078) BILIRUBIN TOTAL (BEAKER) 3.7 mg/dL 0.2-1.2 (test lapt=535) SODIUM (BEAKER) (test 124 meq/L 136-145 raxv=232) POTASSIUM (BEAKER) (test 4.6 meq/L 3.5-5.1 crek=430) CHLORIDE (BEAKER) (test 96 meq/L 98-107 vzwc=413) CO2 (BEAKER) (test 22 meq/L 22-29 nzhf=629) BLOOD UREA NITROGEN 22 mg/dL 7-21 (BEAKER) (test mrbb=969) CREATININE (BEAKER) (test 1.40 mg/dL 0.57-1.25 pmyu=407) GLUCOSE RANDOM (BEAKER) 89 mg/dL 70-105 (test rdgk=191) CALCIUM (BEAKER) (test 8.8 mg/dL 8.4-10.2 zblx=420) AST (SGOT) (BEAKER) (test 25 U/L 5-34 mlwm=171) ALT (SGPT) (BEAKER) (test 10 U/L 6-55 jhur=962) EGFR (BEAKER) (test 53 mL/min/1.73 sq m ESTIMATED GFR IS NOT seye=0134) ACCURATE CREATININE CLEARANCE IN PREDICTING GLOMERULAR FILTRATION RATE. ESTIMATED GFR IS NOT APPLICABLE FOR DIALYSIS PATIENTS. Specimen slightly ictericCBC W/PLT COUNT & AUTO [id number] 05:50 :00 Test Item Value Reference Range Comments WHITE BLOOD CELL COUNT (BEAKER) (test dnpq=898) 3.1 K/ L 3.5-10.5 RED BLOOD CELL COUNT (BEAKER) (test hssv=395) 2.00 M/ L 4.63-6.08 HEMOGLOBIN (BEAKER) (test opno=872) 6.4 GM/DL 13.7-17.5 HEMATOCRIT (BEAKER) (test vxwi=865) 18.9 % 40.1-51.0 MEAN CORPUSCULAR VOLUME (BEAKER) (test sycy=798) 94.5 fL 79.0-92.2 MEAN CORPUSCULAR HEMOGLOBIN (BEAKER) (test 32.0 pg 25.7-32.2 frec=450) MEAN CORPUSCULAR HEMOGLOBIN CONC (BEAKER) (test 33.9 GM/DL 32.3-36.5 jdpx=842) RED CELL DISTRIBUTION WIDTH (BEAKER) (test 17.9 % 11.6-14.4 avfl=832) PLATELET COUNT (BEAKER) (test vecb=856) 59 K/CU MM 150-450 MEAN PLATELET VOLUME (BEAKER) (test gmra=864) 10.4 fL 9.4-12.4 NUCLEATED RED BLOOD CELLS (BEAKER) (test 0 /100 WBC 0-0 potv=057) NEUTROPHILS RELATIVE PERCENT (BEAKER) (test 63 % ojpg=429) LYMPHOCYTES RELATIVE PERCENT (BEAKER) (test 14 % hycv=829) MONOCYTES RELATIVE PERCENT (BEAKER) (test 15 % cykp=522) EOSINOPHILS RELATIVE PERCENT (BEAKER) (test 7 % tbnr=419) BASOPHILS RELATIVE PERCENT (BEAKER) (test 0 % plcq=977) NEUTROPHILS ABSOLUTE COUNT (BEAKER) (test 1.94 K/ L 1.78-5.38 gdzf=042) LYMPHOCYTES ABSOLUTE COUNT (BEAKER) (test 0.44 K/ L 1.32-3.57 xscf=065) MONOCYTES ABSOLUTE COUNT (BEAKER) (test gbhp=418) 0.47 K/ L 0.30-0.82 EOSINOPHILS ABSOLUTE COUNT (BEAKER) (test 0.21 K/ L 0.04-0.54 dqng=829) BASOPHILS ABSOLUTE COUNT (BEAKER) (test ckni=489) 0.01 K/ L 0.01-0.08 IMMATURE GRANULOCYTES-RELATIVE PERCENT (BEAKER) 1 % 0-1 (test zwid=1052) BODY FLUID CELL COUNT WITH [id number] 20:39:00 Test Item Value Reference Range Comments APPEARANCE FLUID (BEAKER) (test kxdc=753) Slightly Hazy Clear COLOR FLUID (BEAKER) (test edtw=907) Yellow Colorless, Straw RBC FLUID (BEAKER) (test ofkb=670) 90 /cu mm <=1 ADJUSTED WBC FLUID (BEAKER) (test hodq=9034) 47 /cu mm <=5 LINING CELLS (BEAKER) (test icfx=2378) 3 /cu mm <=1 NEUTROPHILS FLUID (BEAKER) (test zurr=8823) 2 % LYMPHS FLUID (BEAKER) (test jxcc=786) 19 % MONO/MACROPHAGE FLUID (BEAKER) (test 79 % ceeh=255) EOSINOPHILS FLUID (BEAKER) (test ftgj=950) 0 % BASO FLUID (BEAKER) (test dfvc=304) 0 % CONTAINER BODY FLUID (BEAKER) (test EDTA Tube lskj=2725) ALBUMIN, BODY [id number] 20:14:00 Test Item Value Reference Range Comments ALBUMIN FLUID (BEAKER) (test vsrk=454) 0.4 gm/dL Reference Range: No Normals Assay performance has not been validated for this type of specimen.BASIC METABOLIC [id number] 10:31:00 Test Item Value Reference Range Comments SODIUM (BEAKER) (test 125 meq/L 136-145 ssip=048) POTASSIUM (BEAKER) (test 4.5 meq/L 3.5-5.1 evuj=284) CHLORIDE (BEAKER) (test 98 meq/L 98-107 xcec=379) CO2 (BEAKER) (test 20 meq/L 22-29 zsab=679) BLOOD UREA NITROGEN 22 mg/dL 7-21 (BEAKER) (test sqnx=562) CREATININE (BEAKER) (test 1.45 mg/dL 0.57-1.25 jmee=265) GLUCOSE RANDOM (BEAKER) 87 mg/dL 70-105 (test kxap=086) CALCIUM (BEAKER) (test 8.6 mg/dL 8.4-10.2 fknk=635) EGFR (BEAKER) (test 51 mL/min/1.73 sq m ESTIMATED GFR IS NOT wohk=0201) ACCURATE CREATININE CLEARANCE IN PREDICTING GLOMERULAR FILTRATION RATE. ESTIMATED GFR IS NOT APPLICABLE FOR DIALYSIS PATIENTS. Specimen slightly ictericHEPATIC FUNCTION [id number] 10:31:00 Test Item Value Reference Range Comments TOTAL PROTEIN (BEAKER) (test gmny=216) 5.8 gm/dL 6.0-8.3 ALBUMIN (BEAKER) (test cgju=3902) 2.4 g/dL 3.5-5.0 BILIRUBIN TOTAL (BEAKER) (test rtav=081) 4.1 mg/dL 0.2-1.2 BILIRUBIN DIRECT (BEAKER) (test uzsm=389) 3.1 mg/dL 0.1-0.5 ALKALINE PHOSPHATASE (BEAKER) (test dwus=648) 126 U/L 40-150 AST (SGOT) (BEAKER) (test loqe=670) 28 U/L 5-34 ALT (SGPT) (BEAKER) (test nmmz=819) 13 U/L 6-55 Specimen slightly ictericCBC W/PLT COUNT & AUTO [id number] 10:09 :00 Test Item Value Reference Range Comments WHITE BLOOD CELL COUNT (BEAKER) (test rymz=817) 5.5 K/ L 3.5-10.5 RED BLOOD CELL COUNT (BEAKER) (test emaw=731) 2.56 M/ L 4.63-6.08 HEMOGLOBIN (BEAKER) (test khhv=850) 8.1 GM/DL 13.7-17.5 HEMATOCRIT (BEAKER) (test kkyw=060) 24.2 % 40.1-51.0 MEAN CORPUSCULAR VOLUME (BEAKER) (test gmte=021) 94.5 fL 79.0-92.2 MEAN CORPUSCULAR HEMOGLOBIN (BEAKER) (test 31.6 pg 25.7-32.2 xwhd=171) MEAN CORPUSCULAR HEMOGLOBIN CONC (BEAKER) (test 33.5 GM/DL 32.3-36.5 hgsw=424) RED CELL DISTRIBUTION WIDTH (BEAKER) (test 18.6 % 11.6-14.4 jqxe=349) PLATELET COUNT (BEAKER) (test uzhq=155) 86 K/CU MM 150-450 MEAN PLATELET VOLUME (BEAKER) (test ivtc=672) 9.7 fL 9.4-12.4 NUCLEATED RED BLOOD CELLS (BEAKER) (test 0 /100 WBC 0-0 ayke=197) NEUTROPHILS RELATIVE PERCENT (BEAKER) (test 65 % shmj=110) LYMPHOCYTES RELATIVE PERCENT (BEAKER) (test 13 % winz=606) MONOCYTES RELATIVE PERCENT (BEAKER) (test 14 % twcp=116) EOSINOPHILS RELATIVE PERCENT (BEAKER) (test 6 % mwbl=384) BASOPHILS RELATIVE PERCENT (BEAKER) (test 0 % zxbv=992) NEUTROPHILS ABSOLUTE COUNT (BEAKER) (test 3.59 K/ L 1.78-5.38 slfc=370) LYMPHOCYTES ABSOLUTE COUNT (BEAKER) (test 0.73 K/ L 1.32-3.57 ispv=884) MONOCYTES ABSOLUTE COUNT (BEAKER) (test ppou=577) 0.76 K/ L 0.30-0.82 EOSINOPHILS ABSOLUTE COUNT (BEAKER) (test 0.33 K/ L 0.04-0.54 muci=164) BASOPHILS ABSOLUTE COUNT (BEAKER) (test okzc=252) 0.02 K/ L 0.01-0.08 IMMATURE GRANULOCYTES-RELATIVE PERCENT (BEAKER) 1 % 0-1 (test plcc=4409) PROTHROMBIN [id number] 07:51:00 Test Item Value Reference Range Comments PROTIME (BEAKER) (test hylz=704) 23.8 seconds 11.7-14.7 INR (BEAKER) (test avqp=695) 2.1 <=5.9 RECOMMENDED COUMADIN/WARFARIN INR THERAPY RANGESSTANDARD DOSE: 2.0 - 3.0 Includes: PROPHYLAXIS forvenous thrombosis, systemic embolization; TREATMENT for venous thrombosis and/or pulmonary embolus.HIGH RISK: Target INR is 2.5-3.5 for patients with mechanical heart valves.BLOOD [id number] 05:02:00 Test Item Value Reference Range Comments CULTURE (BEAKER) (test ghpb=2786) No growth in 5 days BLOOD [id number] 05:02:00 Test Item Value Reference Range Comments CULTURE (BEAKER) (test dftd=7020) No growth in 5 days BODY FLUID CULTURE + GRAM [id number] 09:05:00 Test Item Value Reference Range Comments CULTURE (BEAKER) (test yaib=2624) No growth GRAM STAIN RESULT (BEAKER) (test No White blood cells seen dsab=5399) GRAM STAIN RESULT (BEAKER) (test No organisms seen thlj=89676) RAPID DRUG SCREEN, [id number] 23:13:00 Test Item Value Reference Range Comments BARBITURATE URINE (BEAKER) (test lnxi=961) Negative Negative BENZODIAZEPINE SCREEN URINE (BEAKER) (test Negative Negative jzqf=322) COCAINE (METAB.) SCREEN (BEAKER) (test faag=4681) Negative Negative METHADONE SCREEN (BEAKER) (test ebml=2896) Negative Negative OPIATE SCREEN URINE (BEAKER) (test ehvm=104) Negative Negative CANNABINOID SCREEN URINE (BEAKER) (test gbpa=901) Negative Negative AMPH/METHAMPH SCREEN (BEAKER) (test xiwr=7086) Negative Negative PHENCYCLIDINE SCREEN URINE (BEAKER) (test nnck=824) Negative Negative OXYCODONE SCREEN URINE (BEAKER) (test koqk=9467) Negative Negative DRUG CUTOFF CONC.Cocaine 300 ng/mL Cannabinoid 50 ng/mL Benzodiazepine 200 ng/mLBarbiturate 200 ng/ mLPhencyclidine 25 ng/mLOpiate 300 ng/mLMethadone 300 ng/mLAmphetamine/ 1000 ng/mL MethamphetamineOxycodone 300 ng/mLThis assay provides an unconfirmed qualitative test result for the clinical management of patients in emergency situations. Chain of custody not maintained. Some mxcf-qgc-nbyhaja medications, as well as adulterants, may cause inaccurate results. Clinical correlation should be applied. A more comprehensive drug screen or confirmation of a detected drug may be performed upon request.MR, ABDOMEN, [id number] 13:52:00FINAL REPORT MRI of the abdomen with [...] MDReport Verified Date/Time: 09/05/2017 13:52:35 Reading Location: [address] BodyReading Room CBC W/PLT COUNT & AUTO [id number] 05:46:00 Test Item Value Reference Range Comments WHITE BLOOD CELL COUNT (BEAKER) (test cznb=112) 4.7 K/ L 3.5-10.5 RED BLOOD CELL COUNT (BEAKER) (test lewf=399) 2.49 M/ L 4.63-6.08 HEMOGLOBIN (BEAKER) (test jwes=895) 7.9 GM/DL 13.7-17.5 HEMATOCRIT (BEAKER) (test grxh=950) 22.6 % 40.1-51.0 MEAN CORPUSCULAR VOLUME (BEAKER) (test huoo=028) 90.8 fL 79.0-92.2 MEAN CORPUSCULAR HEMOGLOBIN (BEAKER) (test 31.7 pg 25.7-32.2 spuw=075) MEAN CORPUSCULAR HEMOGLOBIN CONC (BEAKER) (test 35.0 GM/DL 32.3-36.5 jyhj=517) RED CELL DISTRIBUTION WIDTH (BEAKER) (test 18.8 % 11.6-14.4 mdga=477) PLATELET COUNT (BEAKER) (test pvmo=719) 60 K/CU MM 150-450 MEAN PLATELET VOLUME (BEAKER) (test xzwi=551) 9.2 fL 9.4-12.4 NUCLEATED RED BLOOD CELLS (BEAKER) (test 0 /100 WBC 0-0 jypn=979) NEUTROPHILS RELATIVE PERCENT (BEAKER) (test 65 % dqja=216) LYMPHOCYTES RELATIVE PERCENT (BEAKER) (test 13 % jeqg=021) MONOCYTES RELATIVE PERCENT (BEAKER) (test 15 % caxn=001) EOSINOPHILS RELATIVE PERCENT (BEAKER) (test 6 % clyz=730) BASOPHILS RELATIVE PERCENT (BEAKER) (test 0 % bnwm=067) NEUTROPHILS ABSOLUTE COUNT (BEAKER) (test 3.05 K/ L 1.78-5.38 fqgj=961) LYMPHOCYTES ABSOLUTE COUNT (BEAKER) (test 0.62 K/ L 1.32-3.57 fdci=602) MONOCYTES ABSOLUTE COUNT (BEAKER) (test imtm=889) 0.68 K/ L 0.30-0.82 EOSINOPHILS ABSOLUTE COUNT (BEAKER) (test 0.28 K/ L 0.04-0.54 xmuo=330) BASOPHILS ABSOLUTE COUNT (BEAKER) (test kcyt=170) 0.02 K/ L 0.01-0.08 IMMATURE GRANULOCYTES-RELATIVE PERCENT (BEAKER) 1 % 0-1 (test gzbg=3914) BASIC METABOLIC [id number] 05:44:00 Test Item Value Reference Range Comments SODIUM (BEAKER) (test 127 meq/L 136-145 nxgu=138) POTASSIUM (BEAKER) (test 4.5 meq/L 3.5-5.1 xaqe=153) CHLORIDE (BEAKER) (test 101 meq/L 98-107 wvnr=682) CO2 (BEAKER) (test 19 meq/L 22-29 wufg=169) BLOOD UREA NITROGEN 17 mg/dL 7-21 (BEAKER) (test balo=287) CREATININE (BEAKER) (test 0.91 mg/dL 0.57-1.25 kggq=088) GLUCOSE RANDOM (BEAKER) 107 mg/dL 70-105 (test yqtb=698) CALCIUM (BEAKER) (test 9.4 mg/dL 8.4-10.2 fkgm=485) EGFR (BEAKER) (test 87 mL/min/1.73 sq m ESTIMATED GFR IS NOT iunp=1599) ACCURATE CREATININE CLEARANCE IN PREDICTING GLOMERULAR FILTRATION RATE. ESTIMATED GFR IS NOT APPLICABLE FOR DIALYSIS PATIENTS. Specimen moderately ictericHEPATIC FUNCTION [id number] 05:44:00 Test Item Value Reference Range Comments TOTAL PROTEIN (BEAKER) (test afji=250) 5.6 gm/dL 6.0-8.3 ALBUMIN (BEAKER) (test fgpl=9403) 3.3 g/dL 3.5-5.0 BILIRUBIN TOTAL (BEAKER) (test rqal=252) 10.3 mg/dL 0.2-1.2 BILIRUBIN DIRECT (BEAKER) (test ouqy=135) 6.8 mg/dL 0.1-0.5 ALKALINE PHOSPHATASE (BEAKER) (test htyv=601) 103 U/L 40-150 AST (SGOT) (BEAKER) (test yobp=171) 17 U/L 5-34 ALT (SGPT) (BEAKER) (test tsgw=753) 8 U/L 6-55 Specimen moderately ictericPT/[id number] 05:31:00 Test Item Value Reference Range Comments PROTIME (BEAKER) (test ilup=519) 25.6 seconds 11.7-14.7 INR (BEAKER) (test djge=181) 2.3 <=5.9 PARTIAL THROMBOPLASTIN TIME (BEAKER) (test 51.6 seconds 22.5-36.0 afwc=991) RECOMMENDED COUMADIN/WARFARIN INR THERAPY RANGESSTANDARD DOSE: 2.0 - 3.0 Includes: PROPHYLAXIS forvenous thrombosis, systemic embolization; TREATMENT for venous thrombosis and/or pulmonary embolus.HIGH RISK: Target INR is 2.5-3.5 for patients with mechanical heart valves.PROTHROMBIN TIME/[id number] 05:30: 00 Test Item Value Reference Range Comments PROTIME (BEAKER) (test xaxd=065) 25.6 seconds 11.7-14.7 INR (BEAKER) (test etjf=046) 2.3 <=5.9 RECOMMENDED COUMADIN/WARFARIN INR THERAPY RANGESSTANDARD DOSE: 2.0 - 3.0 Includes: PROPHYLAXIS forvenous thrombosis, systemic embolization; TREATMENT for venous thrombosis and/or pulmonary embolus.HIGH RISK: Target INR is 2.5-3.5 for patients with mechanical heart valves.BODY FLUID CELL COUNT WITH [id number] 19:30:00 Test Item Value Reference Range Comments APPEARANCE FLUID (BEAKER) (test vamo=818) Slightly Hazy Clear COLOR FLUID (BEAKER) (test admk=386) Yellow Colorless, Straw RBC FLUID (BEAKER) (test ible=671) 100 /cu mm <=1 ADJUSTED WBC FLUID (BEAKER) (test olfa=6526) 36 /cu mm <=5 LINING CELLS (BEAKER) (test pecn=8225) 4 /cu mm <=1 NEUTROPHILS FLUID (BEAKER) (test zlma=9570) 0 % LYMPHS FLUID (BEAKER) (test cmsk=823) 20 % MONO/MACROPHAGE FLUID (BEAKER) (test 80 % ehya=503) EOSINOPHILS FLUID (BEAKER) (test gvcd=955) 0 % BASO FLUID (BEAKER) (test nurh=638) 0 % CONTAINER BODY FLUID (BEAKER) (test EDTA Tube oupx=9180) U/S, [id number] 16:21:00Reason for exam:->ascitesShould this be performed at the bedside?->NoFINAL REPORT PROCEDURE: Ultrasound-guided paracentesis. INDICATION: 52-year-old man with ascites. DESCRIPTION: After obtaining informed written consent, ultrasound scan of the abdomen identified ascites in the right lower quadrant. The overlying skin was prepped and draped in the usual, sterile fashion and local 1% lidocaine anesthesia was administered. A 5 Burmese catheter was advanced into the peritoneal cavity and 13,200 cc of cloudy yellow fluid was removed. The catheter was removed without immediate complication. Samples were sent for analysis. IMPRESSION:Uncomplicated ultrasound-guided paracentesis with 13,200 cc fluid removed. Signed: Candice Mckeon Verified Date/Time: 2016 16:21:22 Reading Location: [facility] [id number] Ultrasound Reading Room BASIC METABOLIC [id number] 11:07:00 Test Item Value Reference Range Comments SODIUM (BEAKER) (test 127 meq/L 136-145 patf=073) POTASSIUM (BEAKER) (test 4.1 meq/L 3.5-5.1 hfvh=293) CHLORIDE (BEAKER) (test 101 meq/L 98-107 ohcr=319) CO2 (BEAKER) (test 23 meq/L 22-29 eqcu=309) BLOOD UREA NITROGEN 17 mg/dL 7-21 (BEAKER) (test aaes=012) CREATININE (BEAKER) (test 1.06 mg/dL 0.57-1.25 gxrp=630) GLUCOSE RANDOM (BEAKER) 104 mg/dL 70-105 (test vvia=917) CALCIUM (BEAKER) (test 8.9 mg/dL 8.4-10.2 zyqm=804) EGFR (BEAKER) (test 73 mL/min/1.73 sq m ESTIMATED GFR IS NOT wnzl=6114) ACCURATE CREATININE CLEARANCE IN PREDICTING GLOMERULAR FILTRATION RATE. ESTIMATED GFR IS NOT APPLICABLE FOR DIALYSIS PATIENTS. Specimen markedly ictericHEPATIC FUNCTION [id number] 11:07:00 Test Item Value Reference Range Comments TOTAL PROTEIN (BEAKER) (test lhyg=608) 5.4 gm/dL 6.0-8.3 ALBUMIN (BEAKER) (test gruy=4619) 2.8 g/dL 3.5-5.0 BILIRUBIN TOTAL (BEAKER) (test sfle=103) 12.7 mg/dL 0.2-1.2 BILIRUBIN DIRECT (BEAKER) (test pugn=335) 7.8 mg/dL 0.1-0.5 ALKALINE PHOSPHATASE (BEAKER) (test dpdi=083) 90 U/L 40-150 AST (SGOT) (BEAKER) (test kqdr=870) 22 U/L 5-34 ALT (SGPT) (BEAKER) (test mohe=736) 11 U/L 6-55 Specimen markedly ictericPT/[id number] 11:02:00 Test Item Value Reference Range Comments PROTIME (BEAKER) (test kiyf=509) 23.4 seconds 11.7-14.7 INR (BEAKER) (test ondl=605) 2.1 <=5.9 PARTIAL THROMBOPLASTIN TIME (BEAKER) (test 48.7 seconds 22.5-36.0 zkeq=307) RECOMMENDED COUMADIN/WARFARIN INR THERAPY RANGESSTANDARD DOSE: 2.0 - 3.0 Includes: PROPHYLAXIS forvenous thrombosis, systemic embolization; TREATMENT for venous thrombosis and/or pulmonary embolus.HIGH RISK: Target INR is 2.5-3.5 for patients with mechanical heart valves.PROTHROMBIN [id number] 11:01: 00 Test Item Value Reference Range Comments PROTIME (BEAKER) (test baih=104) 23.4 seconds 11.7-14.7 INR (BEAKER) (test eyfn=060) 2.1 <=5.9 RECOMMENDED COUMADIN/WARFARIN INR THERAPY RANGESSTANDARD DOSE: 2.0 - 3.0 Includes: PROPHYLAXIS forvenous thrombosis, systemic embolization; TREATMENT for venous thrombosis and/or pulmonary embolus.HIGH RISK: Target INR is 2.5-3.5 for patients with mechanical heart valves.CBC W/PLT COUNT & AUTO [id number] 10:56:00 Test Item Value Reference Range Comments WHITE BLOOD CELL COUNT (BEAKER) (test gunk=202) 4.4 K/ L 3.5-10.5 RED BLOOD CELL COUNT (BEAKER) (test xfik=103) 2.48 M/ L 4.63-6.08 HEMOGLOBIN (BEAKER) (test bwfc=348) 7.8 GM/DL 13.7-17.5 HEMATOCRIT (BEAKER) (test peoj=654) 22.7 % 40.1-51.0 MEAN CORPUSCULAR VOLUME (BEAKER) (test vron=362) 91.5 fL 79.0-92.2 MEAN CORPUSCULAR HEMOGLOBIN (BEAKER) (test 31.5 pg 25.7-32.2 fkau=275) MEAN CORPUSCULAR HEMOGLOBIN CONC (BEAKER) (test 34.4 GM/DL 32.3-36.5 ebxf=022) RED CELL DISTRIBUTION WIDTH (BEAKER) (test 18.6 % 11.6-14.4 otzv=920) PLATELET COUNT (BEAKER) (test fsnr=989) 60 K/CU MM 150-450 MEAN PLATELET VOLUME (BEAKER) (test yasq=384) 8.8 fL 9.4-12.4 NUCLEATED RED BLOOD CELLS (BEAKER) (test 0 /100 WBC 0-0 xuqd=962) NEUTROPHILS RELATIVE PERCENT (BEAKER) (test 61 % qtse=665) LYMPHOCYTES RELATIVE PERCENT (BEAKER) (test 9 % qtye=178) MONOCYTES RELATIVE PERCENT (BEAKER) (test 21 % nmea=517) EOSINOPHILS RELATIVE PERCENT (BEAKER) (test 8 % aeta=979) BASOPHILS RELATIVE PERCENT (BEAKER) (test 1 % bjlh=896) NEUTROPHILS ABSOLUTE COUNT (BEAKER) (test 2.68 K/ L 1.78-5.38 pgga=645) LYMPHOCYTES ABSOLUTE COUNT (BEAKER) (test 0.38 K/ L 1.32-3.57 ifmj=825) MONOCYTES ABSOLUTE COUNT (BEAKER) (test atss=276) 0.94 K/ L 0.30-0.82 EOSINOPHILS ABSOLUTE COUNT (BEAKER) (test 0.33 K/ L 0.04-0.54 xpzu=216) BASOPHILS ABSOLUTE COUNT (BEAKER) (test anvr=903) 0.02 K/ L 0.01-0.08 IMMATURE GRANULOCYTES-RELATIVE PERCENT (BEAKER) 1 % 0-1 (test xksw=3996) URINALYSIS W/ [id number] 06:18:00 Test Item Value Reference Range Comments COLOR (BEAKER) (test evhb=123) Dark Yellow CLARITY (BEAKER) (test obyv=380) Clear SPECIFIC GRAVITY UA (BEAKER) (test wgax=106) 1.008 1.001-1.035 PH UA (BEAKER) (test beri=153) 6.0 5.0-8.0 PROTEIN UA (BEAKER) (test lszm=974) Negative Negative GLUCOSE UA (BEAKER) (test dyob=490) Negative Negative KETONES UA (BEAKER) (test nujo=542) Negative Negative BILIRUBIN UA (BEAKER) (test ncsf=846) Positive Negative BLOOD UA (BEAKER) (test gqqt=674) Moderate Negative NITRITE UA (BEAKER) (test lhnd=072) Negative Negative LEUKOCYTE ESTERASE UA (BEAKER) (test mejb=644) Negative Negative UROBILINOGEN UA (BEAKER) (test ahjk=054) 0.2 mg/dL 0.2-1.0 RBC UA (BEAKER) (test letq=478) 80 /HPF WBC UA (BEAKER) (test cgab=249) 10 /HPF HYALINE CASTS (BEAKER) (test qula=406) 5 /LPF AMORPHOUS CRYSTALS (BEAKER) (test mikc=3625) Rare SOURCE(BEAKER) (test gefs=5987) CBC W/PLT COUNT & AUTO [id number] 00:00:00 Test Item Value Reference Range Comments WHITE BLOOD CELL COUNT (BEAKER) (test ogoq=775) 3.7 K/ L 3.5-10.5 RED BLOOD CELL COUNT (BEAKER) (test lygi=556) 2.20 M/ L 4.63-6.08 HEMOGLOBIN (BEAKER) (test zgay=671) 7.0 GM/DL 13.7-17.5 HEMATOCRIT (BEAKER) (test tiuu=672) 20.2 % 40.1-51.0 MEAN CORPUSCULAR VOLUME (BEAKER) (test xmty=425) 91.8 fL 79.0-92.2 MEAN CORPUSCULAR HEMOGLOBIN (BEAKER) (test 31.8 pg 25.7-32.2 wadt=104) MEAN CORPUSCULAR HEMOGLOBIN CONC (BEAKER) (test 34.7 GM/DL 32.3-36.5 tlxn=653) RED CELL DISTRIBUTION WIDTH (BEAKER) (test 19.3 % 11.6-14.4 alee=723) PLATELET COUNT (BEAKER) (test jjjc=559) 63 K/CU MM 150-450 MEAN PLATELET VOLUME (BEAKER) (test goia=544) 9.1 fL 9.4-12.4 NUCLEATED RED BLOOD CELLS (BEAKER) (test 0 /100 WBC 0-0 hsiv=556) NEUTROPHILS RELATIVE PERCENT (BEAKER) (test 62 % zuic=029) LYMPHOCYTES RELATIVE PERCENT (BEAKER) (test 11 % wkuf=151) MONOCYTES RELATIVE PERCENT (BEAKER) (test 19 % adaz=791) EOSINOPHILS RELATIVE PERCENT (BEAKER) (test 7 % mqpt=457) BASOPHILS RELATIVE PERCENT (BEAKER) (test 1 % ixhy=369) NEUTROPHILS ABSOLUTE COUNT (BEAKER) (test 2.29 K/ L 1.78-5.38 uwkz=904) LYMPHOCYTES ABSOLUTE COUNT (BEAKER) (test 0.39 K/ L 1.32-3.57 yxkf=262) MONOCYTES ABSOLUTE COUNT (BEAKER) (test macd=836) 0.71 K/ L 0.30-0.82 EOSINOPHILS ABSOLUTE COUNT (BEAKER) (test 0.27 K/ L 0.04-0.54 qfbl=148) BASOPHILS ABSOLUTE COUNT (BEAKER) (test gwoq=431) 0.02 K/ L 0.01-0.08 IMMATURE GRANULOCYTES-RELATIVE PERCENT (BEAKER) 1 % 0-1 (test qlxf=8901) PROTHROMBIN [id number] 22:52:00 Test Item Value Reference Range Comments PROTIME (BEAKER) (test ebsp=335) 25.6 seconds 11.7-14.7 INR (BEAKER) (test iazw=197) 2.3 <=5.9 RECOMMENDED COUMADIN/WARFARIN INR THERAPY RANGESSTANDARD DOSE: 2.0 - 3.0 Includes: PROPHYLAXIS forvenous thrombosis, systemic embolization; TREATMENT for venous thrombosis and/or pulmonary embolus.HIGH RISK: Target INR is 2.5-3.5 for patients with mechanical heart valves.[id number] 22:52:00 Test Item Value Reference Range Comments MAGNESIUM (BEAKER) (test akjz=399) 1.3 mg/dL 1.6-2.6 BASIC METABOLIC [id number] 22:52:00 Test Item Value Reference Range Comments SODIUM (BEAKER) (test 124 meq/L 136-145 unzi=440) POTASSIUM (BEAKER) (test 4.1 meq/L 3.5-5.1 vble=789) CHLORIDE (BEAKER) (test 99 meq/L 98-107 vezz=594) CO2 (BEAKER) (test 18 meq/L 22-29 wkop=245) BLOOD UREA NITROGEN 16 mg/dL 7-21 (BEAKER) (test dtfr=603) CREATININE (BEAKER) (test 0.97 mg/dL 0.57-1.25 tdsm=498) GLUCOSE RANDOM (BEAKER) 99 mg/dL 70-105 (test cssi=500) CALCIUM (BEAKER) (test 8.7 mg/dL 8.4-10.2 amlk=400) EGFR (BEAKER) (test 81 mL/min/1.73 sq m ESTIMATED GFR IS NOT hqzs=5802) ACCURATE CREATININE CLEARANCE IN PREDICTING GLOMERULAR FILTRATION RATE. ESTIMATED GFR IS NOT APPLICABLE FOR DIALYSIS PATIENTS. Specimen markedly ictericHEPATIC FUNCTION [id number] 22:52:00 Test Item Value Reference Range Comments TOTAL PROTEIN (BEAKER) (test tzcy=412) 5.3 gm/dL 6.0-8.3 ALBUMIN (BEAKER) (test cszj=9097) 2.8 g/dL 3.5-5.0 BILIRUBIN TOTAL (BEAKER) (test amqg=482) 12.7 mg/dL 0.2-1.2 BILIRUBIN DIRECT (BEAKER) (test iiix=359) 7.6 mg/dL 0.1-0.5 ALKALINE PHOSPHATASE (BEAKER) (test eiuj=545) 93 U/L 40-150 AST (SGOT) (BEAKER) (test pgxi=405) 21 U/L 5-34 ALT (SGPT) (BEAKER) (test ursd=434) 9 U/L 6-55 Specimen markedly ictericALPHA FETOPROTEIN (AFP), TUMOR [id number] 16:39: 00 Test Item Value Reference Range Comments ALPHA-FETOPROTEIN (BEAKER) (test unnn=7765) 2.5 ng/mL <10.0 BASIC METABOLIC [id number] 15:53:00 Test Item Value Reference Range Comments SODIUM (BEAKER) (test 126 meq/L 136-145 rfqe=221) POTASSIUM (BEAKER) (test 5.1 meq/L 3.5-5.1 pykc=330) CHLORIDE (BEAKER) (test 101 meq/L 98-107 zhib=766) CO2 (BEAKER) (test 19 meq/L 22-29 fhmd=922) BLOOD UREA NITROGEN 14 mg/dL 7-21 (BEAKER) (test lcvc=537) CREATININE (BEAKER) (test 1.01 mg/dL 0.57-1.25 uknr=159) GLUCOSE RANDOM (BEAKER) 104 mg/dL 70-105 (test rlxu=672) CALCIUM (BEAKER) (test 9.0 mg/dL 8.4-10.2 ohon=556) EGFR (BEAKER) (test 78 mL/min/1.73 sq m ESTIMATED GFR IS NOT okln=9112) ACCURATE CREATININE CLEARANCE IN PREDICTING GLOMERULAR FILTRATION RATE. ESTIMATED GFR IS NOT APPLICABLE FOR DIALYSIS PATIENTS. Specimen moderately ictericHEPATIC FUNCTION [id number] 15:53:00 Test Item Value Reference Range Comments TOTAL PROTEIN (BEAKER) (test nssy=555) 6.1 gm/dL 6.0-8.3 ALBUMIN (BEAKER) (test vgsm=0711) 2.6 g/dL 3.5-5.0 BILIRUBIN TOTAL (BEAKER) (test twfz=330) 10.4 mg/dL 0.2-1.2 BILIRUBIN DIRECT (BEAKER) (test evvu=658) 7.5 mg/dL 0.1-0.5 ALKALINE PHOSPHATASE (BEAKER) (test ycpz=469) 124 U/L 40-150 AST (SGOT) (BEAKER) (test wjek=859) 29 U/L 5-34 ALT (SGPT) (BEAKER) (test kjsc=220) 12 U/L 6-55 Specimen moderately ictericGAMMA GLUTAMYL TRANSFERASE (GGT)[id number] 15:53:00 Test Item Value Reference Range Comments GAMMA GLUTAMYL TRANSFERASE (BEAKER) (test qjkf=092) 17 U/L 9-64 Specimen moderately ictericPROTHROMBIN [id number] 15:40:00 Test Item Value Reference Range Comments PROTIME (BEAKER) (test izkq=017) 22.6 seconds 11.7-14.7 INR (BEAKER) (test gmnf=927) 2.0 <=5.9 RECOMMENDED COUMADIN/WARFARIN INR THERAPY RANGESSTANDARD DOSE: 2.0 - 3.0 Includes: PROPHYLAXIS forvenous thrombosis, systemic embolization; TREATMENT for venous thrombosis and/or pulmonary embolus.HIGH RISK: Target INR is 2.5-3.5 for patients with mechanical heart valves.CBC W/PLT COUNT & AUTO [id number] 15:38:00 Test Item Value Reference Range Comments WHITE BLOOD CELL COUNT (BEAKER) (test stel=246) 7.3 K/ L 3.5-10.5 RED BLOOD CELL COUNT (BEAKER) (test oxel=474) 2.78 M/ L 4.63-6.08 HEMOGLOBIN (BEAKER) (test vwzi=456) 9.1 GM/DL 13.7-17.5 HEMATOCRIT (BEAKER) (test qyji=468) 27.3 % 40.1-51.0 MEAN CORPUSCULAR VOLUME (BEAKER) (test spxu=460) 98.2 fL 79.0-92.2 MEAN CORPUSCULAR HEMOGLOBIN (BEAKER) (test 32.7 pg 25.7-32.2 etum=603) MEAN CORPUSCULAR HEMOGLOBIN CONC (BEAKER) (test 33.3 GM/DL 32.3-36.5 taao=475) RED CELL DISTRIBUTION WIDTH (BEAKER) (test 16.4 % 11.6-14.4 clhn=403) PLATELET COUNT (BEAKER) (test dvhe=227) 71 K/CU MM 150-450 MEAN PLATELET VOLUME (BEAKER) (test tvcr=127) 9.1 fL 9.4-12.4 NUCLEATED RED BLOOD CELLS (BEAKER) (test 0 /100 WBC 0-0 jrrb=255) NEUTROPHILS RELATIVE PERCENT (BEAKER) (test 71 % qclc=541) LYMPHOCYTES RELATIVE PERCENT (BEAKER) (test 8 % qjid=157) MONOCYTES RELATIVE PERCENT (BEAKER) (test 15 % cijg=527) EOSINOPHILS RELATIVE PERCENT (BEAKER) (test 5 % jowc=105) BASOPHILS RELATIVE PERCENT (BEAKER) (test 0 % ztqu=209) NEUTROPHILS ABSOLUTE COUNT (BEAKER) (test 5.13 K/ L 1.78-5.38 wumx=849) LYMPHOCYTES ABSOLUTE COUNT (BEAKER) (test 0.59 K/ L 1.32-3.57 pdys=200) MONOCYTES ABSOLUTE COUNT (BEAKER) (test gftr=090) 1.06 K/ L 0.30-0.82 EOSINOPHILS ABSOLUTE COUNT (BEAKER) (test 0.33 K/ L 0.04-0.54 uhuc=120) BASOPHILS ABSOLUTE COUNT (BEAKER) (test tscq=408) 0.03 K/ L 0.01-0.08 IMMATURE GRANULOCYTES-RELATIVE PERCENT (BEAKER) 2 % 0-1 (test fnci=5883) FUNGUS CULTURE + [id number] 07:22:00 Test Item Value Reference Range Comments CULTURE (BEAKER) (test No fungus isolated in 28 days warx=3245) FUNGUS SMEAR (BEAKER) (test No fungi seen wxbn=5958) HISTOPLASMA ANTIGEN, [id number] 08:01:00 Test Item Value Reference Range Comments SCAN RESULT (test nkyr=[id number]) TISSUE [id number] 10:58:00 Test Item Value Reference Range Comments LAB AP CPT CODE (BEAKER) (test ymwk=2513) [id number] BLOOD [id number] 16:15:00 Test Item Value Reference Range Comments CULTURE (BEAKER) (test lntm=6052) No growth in 5 days BLOOD [id number] 16:15:00 Test Item Value Reference Range Comments CULTURE (BEAKER) (test yccr=8776) No growth in 5 days [id number] 06:54:00 Test Item Value Reference Range Comments PHOSPHORUS (BEAKER) (test bofy=166) 3.3 mg/dL 2.3-4.7 [id number] 06:54:00 Test Item Value Reference Range Comments MAGNESIUM (BEAKER) (test vnie=637) 1.2 mg/dL 1.6-2.6 BASIC METABOLIC [id number] 06:54:00 Test Item Value Reference Range Comments SODIUM (BEAKER) (test 133 meq/L 136-145 qgkj=834) POTASSIUM (BEAKER) (test 3.6 meq/L 3.5-5.1 dhks=911) CHLORIDE (BEAKER) (test 108 meq/L 98-107 gbez=783) CO2 (BEAKER) (test 17 meq/L 22-29 aumf=895) BLOOD UREA NITROGEN 13 mg/dL 7-21 (BEAKER) (test lmyu=922) CREATININE (BEAKER) (test 1.16 mg/dL 0.57-1.25 egjs=508) GLUCOSE RANDOM (BEAKER) 82 mg/dL 70-105 (test pgsp=609) CALCIUM (BEAKER) (test 8.0 mg/dL 8.4-10.2 oiql=487) EGFR (BEAKER) (test 66 mL/min/1.73 sq m ESTIMATED GFR IS NOT zglb=9376) ACCURATE CREATININE CLEARANCE IN PREDICTING GLOMERULAR FILTRATION RATE. ESTIMATED GFR IS NOT APPLICABLE FOR DIALYSIS PATIENTS. Specimen moderately ictericHEPATIC FUNCTION [id number] 06:54:00 Test Item Value Reference Range Comments TOTAL PROTEIN (BEAKER) (test omoi=520) 5.7 gm/dL 6.0-8.3 ALBUMIN (BEAKER) (test txwl=1207) 3.1 g/dL 3.5-5.0 BILIRUBIN TOTAL (BEAKER) (test ugza=028) 5.2 mg/dL 0.2-1.2 BILIRUBIN DIRECT (BEAKER) (test zgxk=089) 2.6 mg/dL 0.1-0.5 ALKALINE PHOSPHATASE (BEAKER) (test zfls=976) 55 U/L 40-150 AST (SGOT) (BEAKER) (test echj=291) 32 U/L 5-34 ALT (SGPT) (BEAKER) (test octw=221) 9 U/L 6-55 Specimen moderately ictericCALCIUM, [id number] 06:30:00 Test Item Value Reference Range Comments CALCIUM IONIZED (BEAKER) (test dxoj=434) 1.00 mmol/L 1.12-1.27 PH, BLOOD (BEAKER) (test jvlw=0083) 7.52 CBC W/PLT COUNT & AUTO [id number] 06:17:00 Test Item Value Reference Range Comments WHITE BLOOD CELL COUNT (BEAKER) (test stox=638) 4.7 K/ L 4.0-10.0 RED BLOOD CELL COUNT (BEAKER) (test faif=291) 2.05 M/ L 4.20-5.80 HEMOGLOBIN (BEAKER) (test jnpl=491) 7.1 GM/DL 13.0-16.8 HEMATOCRIT (BEAKER) (test jfat=007) 21.1 % 40.0-50.0 MEAN CORPUSCULAR VOLUME (BEAKER) (test gwnb=724) 103.0 fL 82.0-98.0 MEAN CORPUSCULAR HEMOGLOBIN (BEAKER) (test 34.8 pg 27.0-33.0 paui=114) MEAN CORPUSCULAR HEMOGLOBIN CONC (BEAKER) (test 33.8 GM/DL 32.0-36.0 kmwt=245) RED CELL DISTRIBUTION WIDTH (BEAKER) (test 13.9 % 10.3-14.2 rfrt=003) PLATELET COUNT (BEAKER) (test dxto=213) 71 K/CU MM 150-430 MEAN PLATELET VOLUME (BEAKER) (test bnrs=634) 6.6 fL 6.5-10.5 NUCLEATED RED BLOOD CELLS (BEAKER) (test 0 /100 WBC 0-0 ilwf=035) NEUTROPHILS RELATIVE PERCENT (BEAKER) (test 68 % iosy=739) LYMPHOCYTES RELATIVE PERCENT (BEAKER) (test 16 % kdzd=909) MONOCYTES RELATIVE PERCENT (BEAKER) (test 12 % panr=524) EOSINOPHILS RELATIVE PERCENT (BEAKER) (test 4 % htei=600) BASOPHILS RELATIVE PERCENT (BEAKER) (test 1 % yytq=465) NEUTROPHILS ABSOLUTE COUNT (BEAKER) (test 3.21 K/ L 1.80-8.00 fjyt=312) LYMPHOCYTES ABSOLUTE COUNT (BEAKER) (test 0.75 K/ L 1.48-4.50 tawk=186) MONOCYTES ABSOLUTE COUNT (BEAKER) (test olmf=353) 0.57 K/ L 0.00-1.30 EOSINOPHILS ABSOLUTE COUNT (BEAKER) (test 0.19 K/ L 0.00-0.50 zkvr=243) BASOPHILS ABSOLUTE COUNT (BEAKER) (test wdhb=150) 0.03 K/ L 0.00-0.20 0.00PROTHROMBIN [id number] 05:56:00 Test Item Value Reference Range Comments PROTIME (BEAKER) (test telw=604) 26.4 seconds 11.7-14.7 INR (BEAKER) (test baip=419) 2.4 <=5.9 RECOMMENDED COUMADIN/WARFARIN INR THERAPY RANGESSTANDARD DOSE: 2.0 - 3.0 Includes: PROPHYLAXIS forvenous thrombosis, systemic embolization; TREATMENT for venous thrombosis and/or pulmonary embolus.HIGH RISK: Target INR is 2.5-3.5 for patients with mechanical heart valves.BASIC METABOLIC [id number] 04:44: 00 Test Item Value Reference Range Comments SODIUM (BEAKER) (test 134 meq/L 136-145 hetc=773) POTASSIUM (BEAKER) (test 3.6 meq/L 3.5-5.1 gyfa=803) CHLORIDE (BEAKER) (test 108 meq/L 98-107 wgrk=641) CO2 (BEAKER) (test 19 meq/L 22-29 tmar=899) BLOOD UREA NITROGEN 12 mg/dL 7-21 (BEAKER) (test hurr=112) CREATININE (BEAKER) (test 1.32 mg/dL 0.57-1.25 ipso=924) GLUCOSE RANDOM (BEAKER) 82 mg/dL 70-105 (test vsxl=909) CALCIUM (BEAKER) (test 7.9 mg/dL 8.4-10.2 zakz=245) EGFR (BEAKER) (test 57 mL/min/1.73 sq m ESTIMATED GFR IS NOT afhr=4204) ACCURATE CREATININE CLEARANCE IN PREDICTING GLOMERULAR FILTRATION RATE. ESTIMATED GFR IS NOT APPLICABLE FOR DIALYSIS PATIENTS. Specimen moderately ictericHEPATIC FUNCTION [id number] 04:42:00 Test Item Value Reference Range Comments TOTAL PROTEIN (BEAKER) (test eotx=363) 5.8 gm/dL 6.0-8.3 ALBUMIN (BEAKER) (test dykx=8984) 3.1 g/dL 3.5-5.0 BILIRUBIN TOTAL (BEAKER) (test mozv=592) 5.1 mg/dL 0.2-1.2 BILIRUBIN DIRECT (BEAKER) (test fkuk=341) 2.7 mg/dL 0.1-0.5 ALKALINE PHOSPHATASE (BEAKER) (test oxrb=563) 51 U/L 40-150 AST (SGOT) (BEAKER) (test hsjj=857) 27 U/L 5-34 ALT (SGPT) (BEAKER) (test dcae=659) 7 U/L 6-55 Specimen moderately ictericCBC W/PLT COUNT & AUTO [id number] 04: 35:00 Test Item Value Reference Range Comments WHITE BLOOD CELL COUNT (BEAKER) (test lbsf=073) 4.6 K/ L 4.0-10.0 RED BLOOD CELL COUNT (BEAKER) (test ezor=714) 2.06 M/ L 4.20-5.80 HEMOGLOBIN (BEAKER) (test qivn=504) 7.2 GM/DL 13.0-16.8 HEMATOCRIT (BEAKER) (test bwrs=574) 21.5 % 40.0-50.0 MEAN CORPUSCULAR VOLUME (BEAKER) (test khwh=260) 104.0 fL 82.0-98.0 MEAN CORPUSCULAR HEMOGLOBIN (BEAKER) (test 35.0 pg 27.0-33.0 xmmk=663) MEAN CORPUSCULAR HEMOGLOBIN CONC (BEAKER) (test 33.6 GM/DL 32.0-36.0 fane=179) RED CELL DISTRIBUTION WIDTH (BEAKER) (test 13.4 % 10.3-14.2 siaa=805) PLATELET COUNT (BEAKER) (test gfch=301) 76 K/CU MM 150-430 MEAN PLATELET VOLUME (BEAKER) (test rjmk=352) 6.5 fL 6.5-10.5 NUCLEATED RED BLOOD CELLS (BEAKER) (test 0 /100 WBC 0-0 fdoh=031) NEUTROPHILS RELATIVE PERCENT (BEAKER) (test 64 % mtvj=314) LYMPHOCYTES RELATIVE PERCENT (BEAKER) (test 16 % hqlu=269) MONOCYTES RELATIVE PERCENT (BEAKER) (test 16 % wcuu=129) EOSINOPHILS RELATIVE PERCENT (BEAKER) (test 4 % tpgz=071) BASOPHILS RELATIVE PERCENT (BEAKER) (test 1 % gqym=095) NEUTROPHILS ABSOLUTE COUNT (BEAKER) (test 2.89 K/ L 1.80-8.00 ppyj=121) LYMPHOCYTES ABSOLUTE COUNT (BEAKER) (test 0.72 K/ L 1.48-4.50 uuoz=516) MONOCYTES ABSOLUTE COUNT (BEAKER) (test prbc=688) 0.71 K/ L 0.00-1.30 EOSINOPHILS ABSOLUTE COUNT (BEAKER) (test 0.20 K/ L 0.00-0.50 dirw=241) BASOPHILS ABSOLUTE COUNT (BEAKER) (test ufds=372) 0.03 K/ L 0.00-0.20 0.00PROTHROMBIN [id number] 04:33:00 Test Item Value Reference Range Comments PROTIME (BEAKER) (test quhj=775) 30.2 seconds 11.7-14.7 INR (BEAKER) (test covs=880) 2.9 <=5.9 RECOMMENDED COUMADIN/WARFARIN INR THERAPY RANGESSTANDARD DOSE: 2.0 - 3.0 Includes: PROPHYLAXIS forvenous thrombosis, systemic embolization; TREATMENT for venous thrombosis and/or pulmonary embolus.HIGH RISK: Target INR is 2.5-3.5 for patients with mechanical heart valves.VANCOMYCIN LEVEL, [id number] 17: 04:00 Test Item Value Reference Range Comments VANCOMYCIN TROUGH (BEAKER) (test ipje=599) 12.2 ug/mL 10.0-20.0 URINE [id number] 14:25:00 Test Item Value Reference Range Comments CULTURE (BEAKER) (test smeb=0442) No growth TSH/FREE T4 IF [id number] 14:22:00 Test Item Value Reference Range Comments THYROID STIMULATING HORMONE (BEAKER) (test 3.53 uIU/mL 0.35-4.94 ycnp=569) URINE [id number] 11:43:00 Test Item Value Reference Range Comments CULTURE (BEAKER) (test kjim=1303) No growth CBC W/PLT COUNT & AUTO [id number] 07:55:00 Test Item Value Reference Range Comments WHITE BLOOD CELL COUNT (BEAKER) (test wcbz=770) 4.5 K/ L 4.0-10.0 RED BLOOD CELL COUNT (BEAKER) (test qeck=078) 2.06 M/ L 4.20-5.80 HEMOGLOBIN (BEAKER) (test wwws=082) 7.1 GM/DL 13.0-16.8 HEMATOCRIT (BEAKER) (test vpie=158) 21.5 % 40.0-50.0 MEAN CORPUSCULAR VOLUME (BEAKER) (test ztkc=327) 104.0 fL 82.0-98.0 MEAN CORPUSCULAR HEMOGLOBIN (BEAKER) (test 34.5 pg 27.0-33.0 faxs=124) MEAN CORPUSCULAR HEMOGLOBIN CONC (BEAKER) (test 33.1 GM/DL 32.0-36.0 frgh=227) RED CELL DISTRIBUTION WIDTH (BEAKER) (test 13.4 % 10.3-14.2 wjun=633) PLATELET COUNT (BEAKER) (test vyvk=655) 79 K/CU MM 150-430 MEAN PLATELET VOLUME (BEAKER) (test bkcy=775) 6.8 fL 6.5-10.5 NUCLEATED RED BLOOD CELLS (BEAKER) (test 0 /100 WBC 0-0 zgmj=088) NEUTROPHILS RELATIVE PERCENT (BEAKER) (test 64 % irck=793) LYMPHOCYTES RELATIVE PERCENT (BEAKER) (test 16 % gfli=577) MONOCYTES RELATIVE PERCENT (BEAKER) (test 15 % nhnt=789) EOSINOPHILS RELATIVE PERCENT (BEAKER) (test 5 % tlja=945) BASOPHILS RELATIVE PERCENT (BEAKER) (test 0 % lhic=419) NEUTROPHILS ABSOLUTE COUNT (BEAKER) (test 2.88 K/ L 1.80-8.00 tlku=155) LYMPHOCYTES ABSOLUTE COUNT (BEAKER) (test 0.73 K/ L 1.48-4.50 lhxp=750) MONOCYTES ABSOLUTE COUNT (BEAKER) (test dygj=091) 0.68 K/ L 0.00-1.30 EOSINOPHILS ABSOLUTE COUNT (BEAKER) (test 0.23 K/ L 0.00-0.50 orhc=883) BASOPHILS ABSOLUTE COUNT (BEAKER) (test eitq=018) 0.02 K/ L 0.00-0.20 0.00BASI METABOLIC [id number] 05:58:00 Test Item Value Reference Range Comments SODIUM (BEAKER) (test 137 meq/L 136-145 aixr=283) POTASSIUM (BEAKER) (test 3.7 meq/L 3.5-5.1 aaji=363) CHLORIDE (BEAKER) (test 110 meq/L 98-107 ciio=083) CO2 (BEAKER) (test 19 meq/L 22-29 plnb=136) BLOOD UREA NITROGEN 12 mg/dL 7-21 (BEAKER) (test hurz=515) CREATININE (BEAKER) (test 1.29 mg/dL 0.57-1.25 qnkq=677) GLUCOSE RANDOM (BEAKER) 80 mg/dL 70-105 (test fyap=108) CALCIUM (BEAKER) (test 8.1 mg/dL 8.4-10.2 cogp=217) EGFR (BEAKER) (test 59 mL/min/1.73 sq m ESTIMATED GFR IS NOT puwt=4071) ACCURATE CREATININE CLEARANCE IN PREDICTING GLOMERULAR FILTRATION RATE. ESTIMATED GFR IS NOT APPLICABLE FOR DIALYSIS PATIENTS. Specimen moderately ictericHEPATIC FUNCTION [id number] 05:58:00 Test Item Value Reference Range Comments TOTAL PROTEIN (BEAKER) (test uust=762) 5.9 gm/dL 6.0-8.3 ALBUMIN (BEAKER) (test sabo=6103) 3.4 g/dL 3.5-5.0 BILIRUBIN TOTAL (BEAKER) (test plda=812) 5.6 mg/dL 0.2-1.2 BILIRUBIN DIRECT (BEAKER) (test gtxx=030) 2.6 mg/dL 0.1-0.5 ALKALINE PHOSPHATASE (BEAKER) (test hwbp=095) 50 U/L 40-150 AST (SGOT) (BEAKER) (test tfem=424) 30 U/L 5-34 ALT (SGPT) (BEAKER) (test qkqt=016) 9 U/L 6-55 Specimen moderately ictericPROTHROMBIN [id number] 05:31:00 Test Item Value Reference Range Comments PROTIME (BEAKER) (test ppim=030) 29.0 seconds 11.7-14.7 INR (BEAKER) (test qkpj=751) 2.7 <=5.9 RECOMMENDED COUMADIN/WARFARIN INR THERAPY RANGESSTANDARD DOSE: 2.0 - 3.0 Includes: PROPHYLAXIS forvenous thrombosis, systemic embolization; TREATMENT for venous thrombosis and/or pulmonary embolus.HIGH RISK: Target INR is 2.5-3.5 for patients with mechanical heart valves.ANAEROBIC [id number] 05:15:00 Test Item Value Reference Range Comments CULTURE (BEAKER) (test gqfq=4244) No anaerobes isolated BLOOD [id number] 00:00:00 Test Item Value Reference Range Comments CULTURE (BEAKER) (test cqzu=0483) No growth in 5 days BLOOD [id number] 00:00:00 Test Item Value Reference Range Comments CULTURE (BEAKER) (test lfsd=0973) No growth in 5 days URINALYSIS W/ REFLEX URINE [id number] 08:28:00 Test Item Value Reference Range Comments COLOR (BEAKER) (test vath=742) Yellow CLARITY (BEAKER) (test mych=046) Clear SPECIFIC GRAVITY UA (BEAKER) (test ltuo=588) 1.006 1.001-1.035 PH UA (BEAKER) (test iiro=740) 6.5 5.0-8.0 PROTEIN UA (BEAKER) (test ildp=877) Negative Negative GLUCOSE UA (BEAKER) (test rsnt=434) Negative Negative KETONES UA (BEAKER) (test kxwk=240) Negative Negative BILIRUBIN UA (BEAKER) (test gbrd=695) Negative Negative BLOOD UA (BEAKER) (test zpfj=888) Negative Negative NITRITE UA (BEAKER) (test efwm=913) Negative Negative LEUKOCYTE ESTERASE UA (BEAKER) (test hgbk=280) Small Negative UROBILINOGEN UA (BEAKER) (test ymxt=395) 0.2 mg/dL 0.2-1.0 RBC UA (BEAKER) (test tqpe=782) 1 /HPF WBC UA (BEAKER) (test dkcd=879) 6 /HPF BACTERIA (BEAKER) (test ahpq=885) Rare SOURCE(BEAKER) (test ofzb=7970) CBC W/PLT COUNT & AUTO [id number] 07:21:00 Test Item Value Reference Range Comments WHITE BLOOD CELL COUNT (BEAKER) (test kmie=376) 5.9 K/ L 4.0-10.0 RED BLOOD CELL COUNT (BEAKER) (test zqbi=894) 2.12 M/ L 4.20-5.80 HEMOGLOBIN (BEAKER) (test ttel=014) 7.3 GM/DL 13.0-16.8 HEMATOCRIT (BEAKER) (test fkqv=770) 22.2 % 40.0-50.0 MEAN CORPUSCULAR VOLUME (BEAKER) (test wqin=095) 105.0 fL 82.0-98.0 MEAN CORPUSCULAR HEMOGLOBIN (BEAKER) (test 34.2 pg 27.0-33.0 gnml=124) MEAN CORPUSCULAR HEMOGLOBIN CONC (BEAKER) (test 32.7 GM/DL 32.0-36.0 cqsa=815) RED CELL DISTRIBUTION WIDTH (BEAKER) (test 13.1 % 10.3-14.2 qefl=638) PLATELET COUNT (BEAKER) (test tmnm=323) 80 K/CU MM 150-430 MEAN PLATELET VOLUME (BEAKER) (test tybn=549) 6.5 fL 6.5-10.5 NUCLEATED RED BLOOD CELLS (BEAKER) (test 0 /100 WBC 0-0 mzui=774) NEUTROPHILS RELATIVE PERCENT (BEAKER) (test 67 % grxs=879) LYMPHOCYTES RELATIVE PERCENT (BEAKER) (test 14 % udkm=902) MONOCYTES RELATIVE PERCENT (BEAKER) (test 14 % qmaz=308) EOSINOPHILS RELATIVE PERCENT (BEAKER) (test 4 % rwwm=726) BASOPHILS RELATIVE PERCENT (BEAKER) (test 0 % hwss=040) NEUTROPHILS ABSOLUTE COUNT (BEAKER) (test 3.97 K/ L 1.80-8.00 cbtr=801) LYMPHOCYTES ABSOLUTE COUNT (BEAKER) (test 0.85 K/ L 1.48-4.50 vyht=940) MONOCYTES ABSOLUTE COUNT (BEAKER) (test vbrw=481) 0.81 K/ L 0.00-1.30 EOSINOPHILS ABSOLUTE COUNT (BEAKER) (test 0.25 K/ L 0.00-0.50 ctab=453) BASOPHILS ABSOLUTE COUNT (BEAKER) (test htjq=784) 0.03 K/ L 0.00-0.20 [id number] 06:35:00 Test Item Value Reference Range Comments PHOSPHORUS (BEAKER) (test ixwe=913) 3.5 mg/dL 2.3-4.7 [id number] 06:35:00 Test Item Value Reference Range Comments MAGNESIUM (BEAKER) (test gbnn=825) 1.7 mg/dL 1.6-2.6 BASIC METABOLIC [id number] 06:35:00 Test Item Value Reference Range Comments SODIUM (BEAKER) (test 137 meq/L 136-145 snrj=276) POTASSIUM (BEAKER) (test 4.0 meq/L 3.5-5.1 vtro=963) CHLORIDE (BEAKER) (test 109 meq/L 98-107 kphq=885) CO2 (BEAKER) (test 20 meq/L 22-29 kwuk=654) BLOOD UREA NITROGEN 13 mg/dL 7-21 (BEAKER) (test fkki=686) CREATININE (BEAKER) (test 1.56 mg/dL 0.57-1.25 ukir=936) GLUCOSE RANDOM (BEAKER) 85 mg/dL 70-105 (test tisw=364) CALCIUM (BEAKER) (test 8.4 mg/dL 8.4-10.2 ohah=672) EGFR (BEAKER) (test 47 mL/min/1.73 sq m ESTIMATED GFR IS NOT kqvo=5474) ACCURATE CREATININE CLEARANCE IN PREDICTING GLOMERULAR FILTRATION RATE. ESTIMATED GFR IS NOT APPLICABLE FOR DIALYSIS PATIENTS. Specimen moderately ictericHEPATIC FUNCTION [id number] 06:35:00 Test Item Value Reference Range Comments TOTAL PROTEIN (BEAKER) (test fvom=981) 6.5 gm/dL 6.0-8.3 ALBUMIN (BEAKER) (test pgim=7945) 3.8 g/dL 3.5-5.0 BILIRUBIN TOTAL (BEAKER) (test fesp=525) 6.1 mg/dL 0.2-1.2 BILIRUBIN DIRECT (BEAKER) (test valm=098) 2.9 mg/dL 0.1-0.5 ALKALINE PHOSPHATASE (BEAKER) (test bpim=414) 54 U/L 40-150 AST (SGOT) (BEAKER) (test ysje=272) 28 U/L 5-34 ALT (SGPT) (BEAKER) (test cxmg=362) 7 U/L 6-55 Specimen moderately ictericPROTHROMBIN [id number] 06:06:00 Test Item Value Reference Range Comments PROTIME (BEAKER) (test vzzf=325) 26.1 seconds 11.7-14.7 INR (BEAKER) (test rpeg=554) 2.4 <=5.9 RECOMMENDED COUMADIN/WARFARIN INR THERAPY RANGESSTANDARD DOSE: 2.0 - 3.0 Includes: PROPHYLAXIS forvenous thrombosis, systemic embolization; TREATMENT for venous thrombosis and/or pulmonary embolus.HIGH RISK: Target INR is 2.5-3.5 for patients with mechanical heart valves.CALCIUM, [id number] 06:06:00 Test Item Value Reference Range Comments CALCIUM IONIZED (BEAKER) (test rjgt=779) 1.06 mmol/L 1.12-1.27 PH, BLOOD (BEAKER) (test jdai=6795) 7.46 SURGICALLY OBTAINED CULTURE + GRAM [id number] 23:51:00 Test Item Value Reference Range Comments CULTURE (BEAKER) (test tahr=3511) No growth GRAM STAIN RESULT (BEAKER) (test 1+ WBCs pbuq=2295) GRAM STAIN RESULT (BEAKER) (test No organisms seen dhza=50361) BODY FLUID CULTURE + GRAM [id number] 23:42:00 Test Item Value Reference Range Comments CULTURE (BEAKER) (test live=8049) No growth GRAM STAIN RESULT (BEAKER) (test 1+ WBCs wyvi=4041) GRAM STAIN RESULT (BEAKER) (test No organisms seen psmu=83965) BODY FLUID CELL COUNT WITH [id number] 19:59:00 Test Item Value Reference Range Comments APPEARANCE FLUID (BEAKER) (test usxv=443) Hazy Clear COLOR FLUID (BEAKER) (test sztm=259) Yellow Colorless, Straw RBC FLUID (BEAKER) (test iqzh=408) 2435 /cu mm <=1 ADJUSTED WBC FLUID (BEAKER) (test bpzh=3176) 441 /cu mm <=5 LINING CELLS (BEAKER) (test wlix=8085) 9 /cu mm <=1 NEUTROPHILS FLUID (BEAKER) (test odlj=5091) 16 % LYMPHS FLUID (BEAKER) (test owoi=926) 10 % MONO/MACROPHAGE FLUID (BEAKER) (test ouvx=301) 74 % EOSINOPHILS FLUID (BEAKER) (test jstk=560) 0 % BASO FLUID (BEAKER) (test ekjt=176) 0 % CONTAINER BODY FLUID (BEAKER) (test timj=4637) EDTA Tube [id number] 11:01:00 Test Item Value Reference Range Comments PROCALCITONIN (BEAKER) (test yfyf=2232) 0.25 ng/mL <0.05 SEPSIS RISK (ng/mL)Low: 0.05-0.50Intermediate: 0.51-2.00High: & gt;=2.01CBC W/PLT COUNT & AUTO [id number] 08:40:00 Test Item Value Reference Range Comments WHITE BLOOD CELL COUNT (BEAKER) (test mbjv=720) 6.3 K/ L 4.0-10.0 RED BLOOD CELL COUNT (BEAKER) (test ybsm=635) 2.07 M/ L 4.20-5.80 HEMOGLOBIN (BEAKER) (test akzg=679) 7.1 GM/DL 13.0-16.8 HEMATOCRIT (BEAKER) (test zhha=922) 21.9 % 40.0-50.0 MEAN CORPUSCULAR VOLUME (BEAKER) (test xfej=028) 106.0 fL 82.0-98.0 MEAN CORPUSCULAR HEMOGLOBIN (BEAKER) (test 34.1 pg 27.0-33.0 sfzn=817) MEAN CORPUSCULAR HEMOGLOBIN CONC (BEAKER) (test 32.2 GM/DL 32.0-36.0 gtkg=547) RED CELL DISTRIBUTION WIDTH (BEAKER) (test 13.1 % 10.3-14.2 vsaf=896) PLATELET COUNT (BEAKER) (test utme=524) 78 K/CU MM 150-430 MEAN PLATELET VOLUME (BEAKER) (test oupl=537) 6.6 fL 6.5-10.5 NUCLEATED RED BLOOD CELLS (BEAKER) (test 0 /100 WBC 0-0 crsb=917) NEUTROPHILS RELATIVE PERCENT (BEAKER) (test 73 % bztz=359) LYMPHOCYTES RELATIVE PERCENT (BEAKER) (test 10 % qtwt=028) MONOCYTES RELATIVE PERCENT (BEAKER) (test 13 % cavp=055) EOSINOPHILS RELATIVE PERCENT (BEAKER) (test 4 % dvtd=126) BASOPHILS RELATIVE PERCENT (BEAKER) (test 0 % uraw=439) NEUTROPHILS ABSOLUTE COUNT (BEAKER) (test 4.60 K/ L 1.80-8.00 atgd=756) LYMPHOCYTES ABSOLUTE COUNT (BEAKER) (test 0.64 K/ L 1.48-4.50 wxvd=616) MONOCYTES ABSOLUTE COUNT (BEAKER) (test cpmi=352) 0.81 K/ L 0.00-1.30 EOSINOPHILS ABSOLUTE COUNT (BEAKER) (test 0.23 K/ L 0.00-0.50 nqwk=765) BASOPHILS ABSOLUTE COUNT (BEAKER) (test urxl=936) 0.01 K/ L 0.00-0.20 [id number] 06:50:00 Test Item Value Reference Range Comments PHOSPHORUS (BEAKER) (test auqq=670) 3.0 mg/dL 2.3-4.7 [id number] 06:50:00 Test Item Value Reference Range Comments MAGNESIUM (BEAKER) (test qtsd=411) 1.9 mg/dL 1.6-2.6 BASIC METABOLIC [id number] 06:50:00 Test Item Value Reference Range Comments SODIUM (BEAKER) (test 135 meq/L 136-145 fvdi=377) POTASSIUM (BEAKER) (test 4.2 meq/L 3.5-5.1 aipu=300) CHLORIDE (BEAKER) (test 106 meq/L 98-107 rwrb=841) CO2 (BEAKER) (test 21 meq/L 22-29 uqaz=803) BLOOD UREA NITROGEN 19 mg/dL 7-21 (BEAKER) (test zmsn=083) CREATININE (BEAKER) (test 1.62 mg/dL 0.57-1.25 grno=573) GLUCOSE RANDOM (BEAKER) 98 mg/dL 70-105 (test ufae=805) CALCIUM (BEAKER) (test 8.6 mg/dL 8.4-10.2 wvnn=289) EGFR (BEAKER) (test 45 mL/min/1.73 sq m ESTIMATED GFR IS NOT yxvk=0080) ACCURATE CREATININE CLEARANCE IN PREDICTING GLOMERULAR FILTRATION RATE. ESTIMATED GFR IS NOT APPLICABLE FOR DIALYSIS PATIENTS. Specimen moderately ictericHEPATIC FUNCTION [id number] 06:50:00 Test Item Value Reference Range Comments TOTAL PROTEIN (BEAKER) (test bogc=113) 6.3 gm/dL 6.0-8.3 ALBUMIN (BEAKER) (test opsx=8400) 3.7 g/dL 3.5-5.0 BILIRUBIN TOTAL (BEAKER) (test nfbk=459) 6.2 mg/dL 0.2-1.2 BILIRUBIN DIRECT (BEAKER) (test tptz=565) 2.8 mg/dL 0.1-0.5 ALKALINE PHOSPHATASE (BEAKER) (test ysuu=223) 54 U/L 40-150 AST (SGOT) (BEAKER) (test htsx=225) 29 U/L 5-34 ALT (SGPT) (BEAKER) (test sfyp=813) 8 U/L 6-55 Specimen moderately ictericCALCIUM, [id number] 06:48:00 Test Item Value Reference Range Comments CALCIUM IONIZED (BEAKER) (test vzko=310) 1.12 mmol/L 1.12-1.27 PH, BLOOD (BEAKER) (test enwl=4943) 7.33 PROTHROMBIN [id number] 06:24:00 Test Item Value Reference Range Comments PROTIME (BEAKER) (test coih=711) 25.4 seconds 11.7-14.7 INR (BEAKER) (test duup=891) 2.3 <=5.9 RECOMMENDED COUMADIN/WARFARIN INR THERAPY RANGESSTANDARD DOSE: 2.0 - 3.0 Includes: PROPHYLAXIS forvenous thrombosis, systemic embolization; TREATMENT for venous thrombosis and/or pulmonary embolus.HIGH RISK: Target INR is 2.5-3.5 for patients with mechanical heart valves.[id number] 11:17:00 Test Item Value Reference Range Comments FIBRINOGEN LEVEL (BEAKER) (test iosu=595) 115 mg/dl 225-434 CALCIUM, [id number] 06:04:00 Test Item Value Reference Range Comments CALCIUM IONIZED (BEAKER) (test jrlr=283) 1.08 mmol/L 1.12-1.27 PH, BLOOD (BEAKER) (test mfjw=8581) 7.41 CBC W/PLT COUNT & AUTO [id number] 05:28:00 Test Item Value Reference Range Comments WHITE BLOOD CELL COUNT (BEAKER) (test stmo=207) 5.6 K/ L 4.0-10.0 RED BLOOD CELL COUNT (BEAKER) (test rbeo=238) 2.00 M/ L 4.20-5.80 HEMOGLOBIN (BEAKER) (test qksy=329) 7.2 GM/DL 13.0-16.8 HEMATOCRIT (BEAKER) (test sktb=954) 21.2 % 40.0-50.0 MEAN CORPUSCULAR VOLUME (BEAKER) (test nqap=637) 106.0 fL 82.0-98.0 MEAN CORPUSCULAR HEMOGLOBIN (BEAKER) (test 36.0 pg 27.0-33.0 phlu=083) MEAN CORPUSCULAR HEMOGLOBIN CONC (BEAKER) (test 34.0 GM/DL 32.0-36.0 sxys=894) RED CELL DISTRIBUTION WIDTH (BEAKER) (test 13.9 % 10.3-14.2 xzcd=647) PLATELET COUNT (BEAKER) (test yhpi=100) 74 K/CU MM 150-430 MEAN PLATELET VOLUME (BEAKER) (test owhk=815) 6.6 fL 6.5-10.5 NUCLEATED RED BLOOD CELLS (BEAKER) (test 0 /100 WBC 0-0 ybpz=786) NEUTROPHILS RELATIVE PERCENT (BEAKER) (test 66 % xtnt=658) LYMPHOCYTES RELATIVE PERCENT (BEAKER) (test 14 % qrtt=836) MONOCYTES RELATIVE PERCENT (BEAKER) (test 13 % bmeg=045) EOSINOPHILS RELATIVE PERCENT (BEAKER) (test 7 % wriv=668) BASOPHILS RELATIVE PERCENT (BEAKER) (test 0 % zlsv=315) NEUTROPHILS ABSOLUTE COUNT (BEAKER) (test 3.67 K/ L 1.80-8.00 kpib=310) LYMPHOCYTES ABSOLUTE COUNT (BEAKER) (test 0.80 K/ L 1.48-4.50 zsvu=943) MONOCYTES ABSOLUTE COUNT (BEAKER) (test veoh=103) 0.69 K/ L 0.00-1.30 EOSINOPHILS ABSOLUTE COUNT (BEAKER) (test 0.38 K/ L 0.00-0.50 ooaz=899) BASOPHILS ABSOLUTE COUNT (BEAKER) (test ihjl=616) 0.02 K/ L 0.00-0.20 0.00PROTHROMBIN [id number] 05:11:00 Test Item Value Reference Range Comments PROTIME (BEAKER) (test blzo=801) 25.9 seconds 11.7-14.7 INR (BEAKER) (test llbk=907) 2.4 <=5.9 RECOMMENDED COUMADIN/WARFARIN INR THERAPY RANGESSTANDARD DOSE: 2.0 - 3.0 Includes: PROPHYLAXIS forvenous thrombosis, systemic embolization; TREATMENT for venous thrombosis and/or pulmonary embolus.HIGH RISK: Target INR is 2.5-3.5 for patients with mechanical heart valves.[id number] 05:03:00 Test Item Value Reference Range Comments PHOSPHORUS (BEAKER) (test nhmv=029) 3.5 mg/dL 2.3-4.7 [id number] 05:03:00 Test Item Value Reference Range Comments MAGNESIUM (BEAKER) (test sibg=522) 1.7 mg/dL 1.6-2.6 BASIC METABOLIC [id number] 05:03:00 Test Item Value Reference Range Comments SODIUM (BEAKER) (test 135 meq/L 136-145 oyvf=024) POTASSIUM (BEAKER) (test 4.0 meq/L 3.5-5.1 rcxv=640) CHLORIDE (BEAKER) (test 107 meq/L 98-107 apsu=678) CO2 (BEAKER) (test 20 meq/L 22-29 zhds=881) BLOOD UREA NITROGEN 22 mg/dL 7-21 (BEAKER) (test usig=873) CREATININE (BEAKER) (test 1.77 mg/dL 0.57-1.25 xuba=373) GLUCOSE RANDOM (BEAKER) 83 mg/dL 70-105 (test zmnv=656) CALCIUM (BEAKER) (test 8.3 mg/dL 8.4-10.2 jhwq=736) EGFR (BEAKER) (test 41 mL/min/1.73 sq m ESTIMATED GFR IS NOT vufs=7824) ACCURATE CREATININE CLEARANCE IN PREDICTING GLOMERULAR FILTRATION RATE. ESTIMATED GFR IS NOT APPLICABLE FOR DIALYSIS PATIENTS. Specimen moderately ictericHEPATIC FUNCTION [id number] 05:03:00 Test Item Value Reference Range Comments TOTAL PROTEIN (BEAKER) (test ffnk=674) 6.2 gm/dL 6.0-8.3 ALBUMIN (BEAKER) (test ywnb=8284) 3.7 g/dL 3.5-5.0 BILIRUBIN TOTAL (BEAKER) (test jkfp=587) 6.0 mg/dL 0.2-1.2 BILIRUBIN DIRECT (BEAKER) (test mitj=624) 2.6 mg/dL 0.1-0.5 ALKALINE PHOSPHATASE (BEAKER) (test kzok=546) 48 U/L 40-150 AST (SGOT) (BEAKER) (test rrla=291) 26 U/L 5-34 ALT (SGPT) (BEAKER) (test eecn=779) 8 U/L 6-55 Specimen moderately ictericURINE [id number] 14:42:00 Test Item Value Reference Range Comments CULTURE (BEAKER) (test zbai=0939) No growth ANTI-NUCLEAR ANTIBODY (CHERYL)2017-02-12 13:32:00 Test Item Value Reference Range Comments ANTI-NUCLEAR ANTIBODY (CHERYL) (BEAKER) (test Negative Negative nhjl=601) PLATELET [id number] 06:30:00 Test Item Value Reference Range Comments PLATELET COUNT (BEAKER) (test ovok=684) 104 K/CU MM 150-430 [id number] 06:22:00 Test Item Value Reference Range Comments FIBRINOGEN LEVEL (BEAKER) (test aoqj=233) 106 mg/dl 225-434 [id number] 06:16:00 Test Item Value Reference Range Comments PARTIAL THROMBOPLASTIN TIME (BEAKER) (test 48.1 seconds 22.5-36.0 gvbv=870) PROTHROMBIN [id number] 06:15:00 Test Item Value Reference Range Comments PROTIME (BEAKER) (test iiwv=544) 23.5 seconds 11.7-14.7 INR (BEAKER) (test mzur=204) 2.1 <=5.9 RECOMMENDED COUMADIN/WARFARIN INR THERAPY RANGESSTANDARD DOSE: 2.0 - 3.0 Includes: PROPHYLAXIS forvenous thrombosis, systemic embolization; TREATMENT for venous thrombosis and/or pulmonary embolus.HIGH RISK: Target INR is 2.5-3.5 for patients with mechanical heart valves.[id number] 06:12:00 Test Item Value Reference Range Comments MAGNESIUM (BEAKER) (test 2.0 mg/dL 1.6-2.6 Specimen slightly hemolyzed akxo=079) [id number] 06:12:00 Test Item Value Reference Range Comments PHOSPHORUS (BEAKER) (test 5.0 mg/dL 2.3-4.7 Specimen slightly hemolyzed hgkm=197) BASIC METABOLIC [id number] 06:12:00 Test Item Value Reference Range Comments SODIUM (BEAKER) (test 135 meq/L 136-145 itfv=340) POTASSIUM (BEAKER) (test 4.7 meq/L 3.5-5.1 Specimen slightly vrqa=572) hemolyzed CHLORIDE (BEAKER) (test 107 meq/L 98-107 hwle=506) CO2 (BEAKER) (test 20 meq/L 22-29 fhjm=136) BLOOD UREA NITROGEN 18 mg/dL 7-21 (BEAKER) (test hria=085) CREATININE (BEAKER) (test 1.74 mg/dL 0.57-1.25 Specimen slightly gxse=737) hemolyzed GLUCOSE RANDOM (BEAKER) 76 mg/dL 70-105 (test cedc=752) CALCIUM (BEAKER) (test 8.1 mg/dL 8.4-10.2 pigp=909) EGFR (BEAKER) (test 42 mL/min/1.73 sq m ESTIMATED GFR IS NOT ynzu=9298) ACCURATE CREATININE CLEARANCE IN PREDICTING GLOMERULAR FILTRATION RATE. ESTIMATED GFR IS NOT APPLICABLE FOR DIALYSIS PATIENTS. Specimen moderately ictericHEPATIC FUNCTION [id number] 06:12:00 Test Item Value Reference Range Comments TOTAL PROTEIN (BEAKER) (test 6.6 gm/dL 6.0-8.3 Specimen slightly hemolyzed xxbk=518) ALBUMIN (BEAKER) (test 3.7 g/dL 3.5-5.0 Specimen slightly hemolyzed lwmv=8607) BILIRUBIN TOTAL (BEAKER) (test 5.7 mg/dL 0.2-1.2 Specimen slightly hemolyzed pnxp=704) BILIRUBIN DIRECT (BEAKER) (test 2.7 mg/dL 0.1-0.5 Specimen slightly hemolyzed kdty=681) ALKALINE PHOSPHATASE (BEAKER) 56 U/L 40-150 (test tojg=191) AST (SGOT) (BEAKER) (test 29 U/L 5-34 Specimen slightly hemolyzed fkns=084) ALT (SGPT) (BEAKER) (test 7 U/L 6-55 Specimen slightly hemolyzed yovt=005) Specimen moderately ictericLACTIC ACID, VENOUS, WHOLE [id number] 06:04:00 Test Item Value Reference Range Comments LACTATE BLOOD VENOUS (2) (BEAKER) (test 1.0 mmol/L 0.5-2.2 hfke=6412) Effective 02/28/2016: Units/Reference Range ChangeNew: 0.5-2.2 mmol/L Previous: 5 -20 mg/dLSpecimen moderately ictericCALCIUM, [id number] 05:56:00 Test Item Value Reference Range Comments CALCIUM IONIZED (BEAKER) (test wimu=950) 1.00 mmol/L 1.12-1.27 PH, BLOOD (BEAKER) (test bslb=5846) 7.34 [id number] 21:34:00 Test Item Value Reference Range Comments FIBRINOGEN LEVEL (BEAKER) (test zybd=063) 105 mg/dl 225-434 PLATELET [id number] 20:52:00 Test Item Value Reference Range Comments PLATELET COUNT (BEAKER) (test swsx=396) 77 K/CU MM 150-430 [id number] 20:51:00 Test Item Value Reference Range Comments PROTIME (BEAKER) (test cwws=764) 21.1 seconds 11.7-14.7 INR (BEAKER) (test xmph=269) 1.8 <=5.9 PARTIAL THROMBOPLASTIN TIME (BEAKER) (test 47.3 seconds 22.5-36.0 yavw=068) RECOMMENDED COUMADIN/WARFARIN INR THERAPY RANGESSTANDARD DOSE: 2.0 - 3.0 Includes: PROPHYLAXIS forvenous thrombosis, systemic embolization; TREATMENT for venous thrombosis and/or pulmonary embolus.HIGH RISK: Target INR is 2.5-3.5 for patients with mechanical heart valves.[id number] 20:51:00 Test Item Value Reference Range Comments PARTIAL THROMBOPLASTIN TIME (BEAKER) (test 47.3 seconds 22.5-36.0 nrtq=306) PROTHROMBIN [id number] 20:50:00 Test Item Value Reference Range Comments PROTIME (BEAKER) (test qacl=011) 21.1 seconds 11.7-14.7 INR (BEAKER) (test rsoj=382) 1.8 <=5.9 RECOMMENDED COUMADIN/WARFARIN INR THERAPY RANGESSTANDARD DOSE: 2.0 - 3.0 Includes: PROPHYLAXIS forvenous thrombosis, systemic embolization; TREATMENT for venous thrombosis and/or pulmonary embolus.HIGH RISK: Target INR is 2.5-3.5 for patients with mechanical heart valves.[id number] 19:30:00 Test Item Value Reference Range Comments PARTIAL THROMBOPLASTIN TIME (BEAKER) (test 45.1 seconds 22.5-36.0 gqiv=905) PROTHROMBIN [id number] 19:29:00 Test Item Value Reference Range Comments PROTIME (BEAKER) (test psjx=440) 28.2 seconds 11.7-14.7 INR (BEAKER) (test szjg=466) 2.6 <=5.9 RECOMMENDED COUMADIN/WARFARIN INR THERAPY RANGESSTANDARD DOSE: 2.0 - 3.0 Includes: PROPHYLAXIS forvenous thrombosis, systemic embolization; TREATMENT for venous thrombosis and/or pulmonary embolus.HIGH RISK: Target INR is 2.5-3.5 for patients with mechanical heart valves.BODY FLUID CELL COUNT WITH [id number] 18:53:00 Test Item Value Reference Range Comments APPEARANCE FLUID (BEAKER) (test sjlo=429) Hazy Clear COLOR FLUID (BEAKER) (test wzsy=141) Yellow Colorless, Straw RBC FLUID (BEAKER) (test ljjx=586) 900 /cu mm <=1 ADJUSTED WBC FLUID (BEAKER) (test tlwc=8804) 306 /cu mm <=5 LINING CELLS (BEAKER) (test gkyw=7902) 64 /cu mm <=1 NEUTROPHILS FLUID (BEAKER) (test wqei=4791) 4 % LYMPHS FLUID (BEAKER) (test eryt=124) 18 % MONO/MACROPHAGE FLUID (BEAKER) (test xmra=433) 78 % EOSINOPHILS FLUID (BEAKER) (test tiaz=839) 0 % BASO FLUID (BEAKER) (test puxx=464) 0 % CONTAINER BODY FLUID (BEAKER) (test nzcz=2938) EDTA Tube [id number] 16:56:00 Test Item Value Reference Range Comments AMYLASE (BEAKER) (test qkfk=252) 37 U/L 25-125 Specimen moderately ictericCOMPREHENSIVE METABOLIC [id number] 16:56:00 Test Item Value Reference Range Comments TOTAL PROTEIN (BEAKER) 6.1 gm/dL 6.0-8.3 (test psnv=958) ALBUMIN (BEAKER) (test 3.2 g/dL 3.5-5.0 qjeo=5549) ALKALINE PHOSPHATASE 67 U/L 40-150 (BEAKER) (test oglg=126) BILIRUBIN TOTAL (BEAKER) 5.7 mg/dL 0.2-1.2 (test tkrb=312) SODIUM (BEAKER) (test 134 meq/L 136-145 ymta=697) POTASSIUM (BEAKER) (test 3.8 meq/L 3.5-5.1 egxo=366) CHLORIDE (BEAKER) (test 106 meq/L 98-107 qzeb=109) CO2 (BEAKER) (test 19 meq/L 22-29 hfjd=355) BLOOD UREA NITROGEN 18 mg/dL 7-21 (BEAKER) (test ttdv=816) CREATININE (BEAKER) (test 1.52 mg/dL 0.57-1.25 ktvi=782) GLUCOSE RANDOM (BEAKER) 112 mg/dL 70-105 (test eofc=673) CALCIUM (BEAKER) (test 8.3 mg/dL 8.4-10.2 cqii=704) AST (SGOT) (BEAKER) (test 28 U/L 5-34 jnzl=981) ALT (SGPT) (BEAKER) (test 10 U/L 6-55 eont=291) EGFR (BEAKER) (test 49 mL/min/1.73 sq m ESTIMATED GFR IS NOT oqtz=6926) ACCURATE CREATININE CLEARANCE IN PREDICTING GLOMERULAR FILTRATION RATE. ESTIMATED GFR IS NOT APPLICABLE FOR DIALYSIS PATIENTS. Specimen moderately [id number] 16:56:00 Test Item Value Reference Range Comments LIPASE (BEAKER) (test eabf=455) 52 U/L 8-78 Specimen moderately ictericCBC W/PLT COUNT & AUTO [id number] 16: 27:00 Test Item Value Reference Range Comments WHITE BLOOD CELL COUNT (BEAKER) (test cezp=708) 3.7 K/ L 4.0-10.0 RED BLOOD CELL COUNT (BEAKER) (test movj=958) 2.16 M/ L 4.20-5.80 HEMOGLOBIN (BEAKER) (test rxpn=470) 7.8 GM/DL 13.0-16.8 HEMATOCRIT (BEAKER) (test hkzw=481) 23.1 % 40.0-50.0 MEAN CORPUSCULAR VOLUME (BEAKER) (test jkzt=467) 107.0 fL 82.0-98.0 MEAN CORPUSCULAR HEMOGLOBIN (BEAKER) (test 36.0 pg 27.0-33.0 qhkl=326) MEAN CORPUSCULAR HEMOGLOBIN CONC (BEAKER) (test 33.6 GM/DL 32.0-36.0 ofvp=352) RED CELL DISTRIBUTION WIDTH (BEAKER) (test 13.9 % 10.3-14.2 jdiw=867) PLATELET COUNT (BEAKER) (test vvbv=104) 78 K/CU MM 150-430 MEAN PLATELET VOLUME (BEAKER) (test czgg=585) 6.2 fL 6.5-10.5 NUCLEATED RED BLOOD CELLS (BEAKER) (test 0 /100 WBC 0-0 xttp=538) NEUTROPHILS RELATIVE PERCENT (BEAKER) (test 50 % knit=359) LYMPHOCYTES RELATIVE PERCENT (BEAKER) (test 25 % namj=346) MONOCYTES RELATIVE PERCENT (BEAKER) (test 19 % tqzm=100) EOSINOPHILS RELATIVE PERCENT (BEAKER) (test 6 % lcen=952) BASOPHILS RELATIVE PERCENT (BEAKER) (test 1 % nogg=053) NEUTROPHILS ABSOLUTE COUNT (BEAKER) (test 1.82 K/ L 1.80-8.00 nazz=463) LYMPHOCYTES ABSOLUTE COUNT (BEAKER) (test 0.91 K/ L 1.48-4.50 cxqc=679) MONOCYTES ABSOLUTE COUNT (BEAKER) (test uagd=618) 0.69 K/ L 0.00-1.30 EOSINOPHILS ABSOLUTE COUNT (BEAKER) (test 0.21 K/ L 0.00-0.50 dnfk=890) BASOPHILS ABSOLUTE COUNT (BEAKER) (test tjai=721) 0.02 K/ L 0.00-0.20 0.00HEPATIC FUNCTION [id number] 08:34:00 Test Item Value Reference Range Comments TOTAL PROTEIN (BEAKER) (test yfxy=789) 5.9 gm/dL 6.0-8.3 ALBUMIN (BEAKER) (test tkab=3568) 3.2 g/dL 3.5-5.0 BILIRUBIN TOTAL (BEAKER) (test sdhy=388) 5.4 mg/dL 0.2-1.2 BILIRUBIN DIRECT (BEAKER) (test rypv=352) 2.5 mg/dL 0.1-0.5 ALKALINE PHOSPHATASE (BEAKER) (test igut=076) 60 U/L 40-150 AST (SGOT) (BEAKER) (test uwvw=593) 28 U/L 5-34 ALT (SGPT) (BEAKER) (test fgvk=891) 10 U/L 6-55 Specimen moderately [id number] 08:16:00 Test Item Value Reference Range Comments PHOSPHORUS (BEAKER) (test jokg=675) 3.0 mg/dL 2.3-4.7 [id number] 08:16:00 Test Item Value Reference Range Comments MAGNESIUM (BEAKER) (test dbdy=322) 1.6 mg/dL 1.6-2.6 BASIC METABOLIC [id number] 08:16:00 Test Item Value Reference Range Comments SODIUM (BEAKER) (test 133 meq/L 136-145 feez=699) POTASSIUM (BEAKER) (test 3.6 meq/L 3.5-5.1 dsxh=610) CHLORIDE (BEAKER) (test 105 meq/L 98-107 ghzi=007) CO2 (BEAKER) (test 20 meq/L 22-29 korf=135) BLOOD UREA NITROGEN 18 mg/dL 7-21 (BEAKER) (test nmkq=201) CREATININE (BEAKER) (test 1.54 mg/dL 0.57-1.25 gxba=683) GLUCOSE RANDOM (BEAKER) 70 mg/dL 70-105 (test ctjq=342) CALCIUM (BEAKER) (test 8.2 mg/dL 8.4-10.2 unww=310) EGFR (BEAKER) (test 48 mL/min/1.73 sq m ESTIMATED GFR IS NOT uiuq=4219) ACCURATE CREATININE CLEARANCE IN PREDICTING GLOMERULAR FILTRATION RATE. ESTIMATED GFR IS NOT APPLICABLE FOR DIALYSIS PATIENTS. Specimen moderately ictericCBC W/PLT COUNT & AUTO [id number] 08: 06:00 Test Item Value Reference Range Comments WHITE BLOOD CELL COUNT (BEAKER) (test bsem=209) 3.4 K/ L 4.0-10.0 RED BLOOD CELL COUNT (BEAKER) (test lbbc=894) 2.03 M/ L 4.20-5.80 HEMOGLOBIN (BEAKER) (test evan=318) 7.3 GM/DL 13.0-16.8 HEMATOCRIT (BEAKER) (test kcsi=587) 21.6 % 40.0-50.0 MEAN CORPUSCULAR VOLUME (BEAKER) (test eqwk=962) 106.0 fL 82.0-98.0 MEAN CORPUSCULAR HEMOGLOBIN (BEAKER) (test 35.8 pg 27.0-33.0 jpzv=278) MEAN CORPUSCULAR HEMOGLOBIN CONC (BEAKER) (test 33.7 GM/DL 32.0-36.0 iflk=631) RED CELL DISTRIBUTION WIDTH (BEAKER) (test 13.5 % 10.3-14.2 ewne=496) PLATELET COUNT (BEAKER) (test toug=666) 82 K/CU MM 150-430 MEAN PLATELET VOLUME (BEAKER) (test yrqj=664) 6.7 fL 6.5-10.5 NUCLEATED RED BLOOD CELLS (BEAKER) (test 0 /100 WBC 0-0 dkhw=827) NEUTROPHILS RELATIVE PERCENT (BEAKER) (test 50 % xvzr=057) LYMPHOCYTES RELATIVE PERCENT (BEAKER) (test 25 % dehi=196) MONOCYTES RELATIVE PERCENT (BEAKER) (test 19 % kqdd=968) EOSINOPHILS RELATIVE PERCENT (BEAKER) (test 5 % eceg=204) BASOPHILS RELATIVE PERCENT (BEAKER) (test 1 % hbms=200) NEUTROPHILS ABSOLUTE COUNT (BEAKER) (test 1.69 K/ L 1.80-8.00 ndkj=955) LYMPHOCYTES ABSOLUTE COUNT (BEAKER) (test 0.83 K/ L 1.48-4.50 wtiy=758) MONOCYTES ABSOLUTE COUNT (BEAKER) (test oxzu=259) 0.65 K/ L 0.00-1.30 EOSINOPHILS ABSOLUTE COUNT (BEAKER) (test 0.17 K/ L 0.00-0.50 aifr=103) BASOPHILS ABSOLUTE COUNT (BEAKER) (test fszj=109) 0.04 K/ L 0.00-0.20 0.00PROTHROMBIN [id number] 08:01:00 Test Item Value Reference Range Comments PROTIME (BEAKER) (test vdxg=681) 27.6 seconds 11.7-14.7 INR (BEAKER) (test ctys=555) 2.6 <=5.9 RECOMMENDED COUMADIN/WARFARIN INR THERAPY RANGESSTANDARD DOSE: 2.0 - 3.0 Includes: PROPHYLAXIS forvenous thrombosis, systemic embolization; TREATMENT for venous thrombosis and/or pulmonary embolus.HIGH RISK: Target INR is 2.5-3.5 for patients with mechanical heart valves.CALCIUM, [id number] 07:58:00 Test Item Value Reference Range Comments CALCIUM IONIZED (BEAKER) (test ehgj=952) 1.00 mmol/L 1.12-1.27 PH, BLOOD (BEAKER) (test hhhl=3464) 7.53 URINALYSIS W/ [id number] 18:42:00 Test Item Value Reference Range Comments COLOR (BEAKER) (test sprk=672) Yellow CLARITY (BEAKER) (test tzke=310) Clear SPECIFIC GRAVITY UA (BEAKER) (test 1.009 1.001-1.035 cegg=817) PH UA (BEAKER) (test jekx=848) 7.5 5.0-8.0 PROTEIN UA (BEAKER) (test skcg=260) Negative Negative GLUCOSE UA (BEAKER) (test kcfy=757) Negative Negative KETONES UA (BEAKER) (test obxz=295) Negative Negative BILIRUBIN UA (BEAKER) (test cqal=072) Negative Negative BLOOD UA (BEAKER) (test clhl=904) Negative Negative NITRITE UA (BEAKER) (test tclu=328) Negative Negative LEUKOCYTE ESTERASE UA (BEAKER) (test Negative Negative zbkj=391) UROBILINOGEN UA (BEAKER) (test ncwi=801) 3.0 mg/dL 0.2-1.0 RBC UA (BEAKER) (test xcgy=717) 6 /HPF WBC UA (BEAKER) (test vjda=004) 1 /HPF SOURCE(BEAKER) (test mxjv=9955) Urine, Clean Catch PROTHROMBIN [id number] 15:13:00 Test Item Value Reference Range Comments PROTIME (BEAKER) (test bzls=707) 31.4 seconds 11.7-14.7 INR (BEAKER) (test vkwo=437) 3.0 <=5.9 RECOMMENDED COUMADIN/WARFARIN INR THERAPY RANGESSTANDARD DOSE: 2.0 - 3.0 Includes: PROPHYLAXIS forvenous thrombosis, systemic embolization; TREATMENT for venous thrombosis and/or pulmonary embolus.HIGH RISK: Target INR is 2.5-3.5 for patients with mechanical heart valves.Draw after vitamin K administrationCBC W/PLT COUNT & AUTO [id number] 07:02:00 Test Item Value Reference Range Comments WHITE BLOOD CELL COUNT (BEAKER) (test aaso=629) 3.0 K/ L 4.0-10.0 RED BLOOD CELL COUNT (BEAKER) (test ydar=105) 2.21 M/ L 4.20-5.80 HEMOGLOBIN (BEAKER) (test bcxa=586) 7.5 GM/DL 13.0-16.8 HEMATOCRIT (BEAKER) (test iyfq=833) 23.5 % 40.0-50.0 MEAN CORPUSCULAR VOLUME (BEAKER) (test hexz=839) 106.0 fL 82.0-98.0 MEAN CORPUSCULAR HEMOGLOBIN (BEAKER) (test 34.0 pg 27.0-33.0 nuqy=898) MEAN CORPUSCULAR HEMOGLOBIN CONC (BEAKER) (test 32.0 GM/DL 32.0-36.0 pnbo=201) RED CELL DISTRIBUTION WIDTH (BEAKER) (test 13.0 % 10.3-14.2 moqg=053) PLATELET COUNT (BEAKER) (test yvok=945) 81 K/CU MM 150-430 MEAN PLATELET VOLUME (BEAKER) (test tyzm=145) 6.3 fL 6.5-10.5 NUCLEATED RED BLOOD CELLS (BEAKER) (test 0 /100 WBC 0-0 appt=132) NEUTROPHILS RELATIVE PERCENT (BEAKER) (test 52 % qxof=221) LYMPHOCYTES RELATIVE PERCENT (BEAKER) (test 24 % oryh=782) MONOCYTES RELATIVE PERCENT (BEAKER) (test 20 % zhvj=593) EOSINOPHILS RELATIVE PERCENT (BEAKER) (test 3 % sdct=064) BASOPHILS RELATIVE PERCENT (BEAKER) (test 1 % wsjz=318) NEUTROPHILS ABSOLUTE COUNT (BEAKER) (test 1.53 K/ L 1.80-8.00 zgtx=559) LYMPHOCYTES ABSOLUTE COUNT (BEAKER) (test 0.71 K/ L 1.48-4.50 rhpy=873) MONOCYTES ABSOLUTE COUNT (BEAKER) (test uhrq=724) 0.60 K/ L 0.00-1.30 EOSINOPHILS ABSOLUTE COUNT (BEAKER) (test 0.10 K/ L 0.00-0.50 picn=934) BASOPHILS ABSOLUTE COUNT (BEAKER) (test ijoq=243) 0.03 K/ L 0.00-0.20 0.00BASIC METABOLIC [id number] 06:29:00 Test Item Value Reference Range Comments SODIUM (BEAKER) (test 135 meq/L 136-145 ggji=898) POTASSIUM (BEAKER) (test 4.0 meq/L 3.5-5.1 imqs=763) CHLORIDE (BEAKER) (test 106 meq/L 98-107 anmh=985) CO2 (BEAKER) (test 22 meq/L 22-29 qhwm=864) BLOOD UREA NITROGEN 17 mg/dL 7-21 (BEAKER) (test lrkq=302) CREATININE (BEAKER) (test 1.46 mg/dL 0.57-1.25 rwpr=831) GLUCOSE RANDOM (BEAKER) 75 mg/dL 70-105 (test qhon=806) CALCIUM (BEAKER) (test 8.0 mg/dL 8.4-10.2 nugp=437) EGFR (BEAKER) (test 51 mL/min/1.73 sq m ESTIMATED GFR IS NOT yrmm=4518) ACCURATE CREATININE CLEARANCE IN PREDICTING GLOMERULAR FILTRATION RATE. ESTIMATED GFR IS NOT APPLICABLE FOR DIALYSIS PATIENTS. Specimen moderately ictericHEPATIC FUNCTION [id number] 06:29:00 Test Item Value Reference Range Comments TOTAL PROTEIN (BEAKER) (test wsrj=763) 5.9 gm/dL 6.0-8.3 ALBUMIN (BEAKER) (test geuv=8157) 3.0 g/dL 3.5-5.0 BILIRUBIN TOTAL (BEAKER) (test pyjj=139) 5.4 mg/dL 0.2-1.2 BILIRUBIN DIRECT (BEAKER) (test aiox=756) 2.7 mg/dL 0.1-0.5 ALKALINE PHOSPHATASE (BEAKER) (test erlm=519) 65 U/L 40-150 AST (SGOT) (BEAKER) (test qclf=188) 27 U/L 5-34 ALT (SGPT) (BEAKER) (test prim=114) 7 U/L 6-55 Specimen moderately ictericPROTHROMBIN [id number] 06:23:00 Test Item Value Reference Range Comments PROTIME (BEAKER) (test hefu=307) 31.2 seconds 11.7-14.7 INR (BEAKER) (test qkls=862) 3.0 <=5.9 RECOMMENDED COUMADIN/WARFARIN INR THERAPY RANGESSTANDARD DOSE: 2.0 - 3.0 Includes: PROPHYLAXIS forvenous thrombosis, systemic embolization; TREATMENT for venous thrombosis and/or pulmonary embolus.HIGH RISK: Target INR is 2.5-3.5 for patients with mechanical heart valves.CBC W/PLT COUNT & AUTO [id number] 06:26:00 Test Item Value Reference Range Comments WHITE BLOOD CELL COUNT (BEAKER) (test adrz=234) 3.0 K/ L 4.0-10.0 RED BLOOD CELL COUNT (BEAKER) (test fjor=939) 2.16 M/ L 4.20-5.80 HEMOGLOBIN (BEAKER) (test gqje=250) 7.4 GM/DL 13.0-16.8 HEMATOCRIT (BEAKER) (test zrzk=954) 23.1 % 40.0-50.0 MEAN CORPUSCULAR VOLUME (BEAKER) (test mtyt=098) 107.0 fL 82.0-98.0 MEAN CORPUSCULAR HEMOGLOBIN (BEAKER) (test 34.4 pg 27.0-33.0 dnem=931) MEAN CORPUSCULAR HEMOGLOBIN CONC (BEAKER) (test 32.1 GM/DL 32.0-36.0 jeid=776) RED CELL DISTRIBUTION WIDTH (BEAKER) (test 13.1 % 10.3-14.2 vqsi=038) PLATELET COUNT (BEAKER) (test qsxo=747) 72 K/CU MM 150-430 MEAN PLATELET VOLUME (BEAKER) (test feoj=251) 6.1 fL 6.5-10.5 NUCLEATED RED BLOOD CELLS (BEAKER) (test 0 /100 WBC 0-0 aaki=307) NEUTROPHILS RELATIVE PERCENT (BEAKER) (test 58 % ipzy=534) LYMPHOCYTES RELATIVE PERCENT (BEAKER) (test 21 % kgjq=263) MONOCYTES RELATIVE PERCENT (BEAKER) (test 15 % flrb=238) EOSINOPHILS RELATIVE PERCENT (BEAKER) (test 4 % ryng=148) BASOPHILS RELATIVE PERCENT (BEAKER) (test 1 % sadc=865) NEUTROPHILS ABSOLUTE COUNT (BEAKER) (test 1.73 K/ L 1.80-8.00 lphg=918) LYMPHOCYTES ABSOLUTE COUNT (BEAKER) (test 0.64 K/ L 1.48-4.50 ceik=188) MONOCYTES ABSOLUTE COUNT (BEAKER) (test iaeg=808) 0.45 K/ L 0.00-1.30 EOSINOPHILS ABSOLUTE COUNT (BEAKER) (test 0.13 K/ L 0.00-0.50 qhvu=161) BASOPHILS ABSOLUTE COUNT (BEAKER) (test neng=753) 0.02 K/ L 0.00-0.20 0.00BASIC METABOLIC [id number] 06:24:00 Test Item Value Reference Range Comments SODIUM (BEAKER) (test 134 meq/L 136-145 azah=041) POTASSIUM (BEAKER) (test 3.7 meq/L 3.5-5.1 bttr=579) CHLORIDE (BEAKER) (test 105 meq/L 98-107 ulop=868) CO2 (BEAKER) (test 21 meq/L 22-29 dboo=464) BLOOD UREA NITROGEN 18 mg/dL 7-21 (BEAKER) (test hpyg=921) CREATININE (BEAKER) (test 1.53 mg/dL 0.57-1.25 kszg=011) GLUCOSE RANDOM (BEAKER) 103 mg/dL 70-105 (test odvh=606) CALCIUM (BEAKER) (test 7.6 mg/dL 8.4-10.2 lthb=872) EGFR (BEAKER) (test 48 mL/min/1.73 sq m ESTIMATED GFR IS NOT ulvz=3624) ACCURATE CREATININE CLEARANCE IN PREDICTING GLOMERULAR FILTRATION RATE. ESTIMATED GFR IS NOT APPLICABLE FOR DIALYSIS PATIENTS. Specimen moderately ictericHEPATIC FUNCTION [id number] 06:19:00 Test Item Value Reference Range Comments TOTAL PROTEIN (BEAKER) (test wizo=978) 5.6 gm/dL 6.0-8.3 ALBUMIN (BEAKER) (test yodq=4318) 2.4 g/dL 3.5-5.0 BILIRUBIN TOTAL (BEAKER) (test mfwm=407) 4.8 mg/dL 0.2-1.2 BILIRUBIN DIRECT (BEAKER) (test kacr=823) 2.6 mg/dL 0.1-0.5 ALKALINE PHOSPHATASE (BEAKER) (test zszv=283) 70 U/L 40-150 AST (SGOT) (BEAKER) (test sfor=629) 28 U/L 5-34 ALT (SGPT) (BEAKER) (test wtmb=947) 11 U/L 6-55 Specimen moderately ictericPROTHROMBIN [id number] 06:00:00 Test Item Value Reference Range Comments PROTIME (BEAKER) (test kifb=935) 36.7 seconds 11.7-14.7 INR (BEAKER) (test pdyb=120) 3.7 <=5.9 RECOMMENDED COUMADIN/WARFARIN INR THERAPY RANGESSTANDARD DOSE: 2.0 - 3.0 Includes: PROPHYLAXIS forvenous thrombosis, systemic embolization; TREATMENT for venous thrombosis and/or pulmonary embolus.HIGH RISK: Target INR is 2.5-3.5 for patients with mechanical heart valves.BODY FLUID CULTURE + GRAM [id number] 00:51:00 Test Item Value Reference Range Comments CULTURE (BEAKER) (test vdrl=7601) No growth GRAM STAIN RESULT (BEAKER) (test 3+ WBCs zmlz=8906) GRAM STAIN RESULT (BEAKER) (test No organisms seen powz=82024) BLOOD [id number] 17:08:00 Test Item Value Reference Range Comments CULTURE (BEAKER) (test ttcn=0683) No growth in 5 days BLOOD [id number] 17:06:00 Test Item Value Reference Range Comments CULTURE (BEAKER) (test wter=6094) No growth in 5 days CBC W/PLT COUNT & AUTO [id number] 07:05:00 Test Item Value Reference Range Comments WHITE BLOOD CELL COUNT (BEAKER) (test hbly=376) 3.5 K/ L 4.0-10.0 RED BLOOD CELL COUNT (BEAKER) (test ouxq=730) 2.16 M/ L 4.20-5.80 HEMOGLOBIN (BEAKER) (test jqsy=042) 7.8 GM/DL 13.0-16.8 HEMATOCRIT (BEAKER) (test oznf=713) 23.9 % 40.0-50.0 MEAN CORPUSCULAR VOLUME (BEAKER) (test ltio=448) 111.0 fL 82.0-98.0 MEAN CORPUSCULAR HEMOGLOBIN (BEAKER) (test 36.3 pg 27.0-33.0 joly=123) MEAN CORPUSCULAR HEMOGLOBIN CONC (BEAKER) (test 32.8 GM/DL 32.0-36.0 vvrv=825) RED CELL DISTRIBUTION WIDTH (BEAKER) (test 13.9 % 10.3-14.2 edyj=935) PLATELET COUNT (BEAKER) (test kmiy=639) 72 K/CU MM 150-430 MEAN PLATELET VOLUME (BEAKER) (test pkah=348) 6.4 fL 6.5-10.5 NUCLEATED RED BLOOD CELLS (BEAKER) (test 0 /100 WBC 0-0 xnsu=526) NEUTROPHILS RELATIVE PERCENT (BEAKER) (test 51 % kbys=713) LYMPHOCYTES RELATIVE PERCENT (BEAKER) (test 25 % xobe=864) MONOCYTES RELATIVE PERCENT (BEAKER) (test 18 % vbxl=125) EOSINOPHILS RELATIVE PERCENT (BEAKER) (test 6 % xpih=039) BASOPHILS RELATIVE PERCENT (BEAKER) (test 0 % ehrc=509) NEUTROPHILS ABSOLUTE COUNT (BEAKER) (test 1.77 K/ L 1.80-8.00 fgaw=874) LYMPHOCYTES ABSOLUTE COUNT (BEAKER) (test 0.87 K/ L 1.48-4.50 xmjw=328) MONOCYTES ABSOLUTE COUNT (BEAKER) (test rkmh=662) 0.62 K/ L 0.00-1.30 EOSINOPHILS ABSOLUTE COUNT (BEAKER) (test 0.22 K/ L 0.00-0.50 zlfn=051) BASOPHILS ABSOLUTE COUNT (BEAKER) (test zavm=446) 0.01 K/ L 0.00-0.20 0.00BASIC METABOLIC [id number] 06:54:00 Test Item Value Reference Range Comments SODIUM (BEAKER) (test 137 meq/L 136-145 paat=246) POTASSIUM (BEAKER) (test 3.8 meq/L 3.5-5.1 lpnb=282) CHLORIDE (BEAKER) (test 109 meq/L 98-107 bpjl=832) CO2 (BEAKER) (test 21 meq/L 22-29 nqkj=979) BLOOD UREA NITROGEN 17 mg/dL 7-21 (BEAKER) (test xtsd=501) CREATININE (BEAKER) (test 1.60 mg/dL 0.57-1.25 mspg=260) GLUCOSE RANDOM (BEAKER) 76 mg/dL 70-105 (test vnvm=648) CALCIUM (BEAKER) (test 7.5 mg/dL 8.4-10.2 jeok=098) EGFR (BEAKER) (test 46 mL/min/1.73 sq m ESTIMATED GFR IS NOT nnxi=7039) ACCURATE CREATININE CLEARANCE IN PREDICTING GLOMERULAR FILTRATION RATE. ESTIMATED GFR IS NOT APPLICABLE FOR DIALYSIS PATIENTS. Specimen moderately ictericHEPATIC FUNCTION [id number] 06:53:00 Test Item Value Reference Range Comments TOTAL PROTEIN (BEAKER) (test kdhx=826) 5.6 gm/dL 6.0-8.3 ALBUMIN (BEAKER) (test bnnq=6182) 2.4 g/dL 3.5-5.0 BILIRUBIN TOTAL (BEAKER) (test sgbw=794) 4.5 mg/dL 0.2-1.2 BILIRUBIN DIRECT (BEAKER) (test afvh=639) 2.7 mg/dL 0.1-0.5 ALKALINE PHOSPHATASE (BEAKER) (test aeim=376) 74 U/L 40-150 AST (SGOT) (BEAKER) (test qgto=646) 36 U/L 5-34 ALT (SGPT) (BEAKER) (test fjbt=307) 13 U/L 6-55 Specimen moderately ictericB-TYPE NATRIURETIC FACTOR (BNP)[id number] 06:52:00 Test Item Value Reference Range Comments B-TYPE NATRIURETIC PEPTIDE (BEAKER) (test 446 pg/mL 0-100 aakc=709) PROTHROMBIN [id number] 06:36:00 Test Item Value Reference Range Comments PROTIME (BEAKER) (test sbju=276) 28.7 seconds 11.7-14.7 INR (BEAKER) (test asvx=895) 2.7 <=5.9 RECOMMENDED COUMADIN/WARFARIN INR THERAPY RANGESSTANDARD DOSE: 2.0 - 3.0 Includes: PROPHYLAXIS forvenous thrombosis, systemic embolization; TREATMENT for venous thrombosis and/or pulmonary embolus.HIGH RISK: Target INR is 2.5-3.5 for patients with mechanical heart valves.EOSINOPHIL SMEAR, [id number] 21: 44:00 Test Item Value Reference Range Comments EOSINOPHIL SMEAR, URINE (BEAKER) (test No EOS seen No EOS seen oebu=5068) CREATININE, RANDOM [id number] 18:02:00 Test Item Value Reference Range Comments CREATININE URINE (BEAKER) (test cdax=028) 96.3 mg/dL Reference Range: No NormalsSODIUM, RANDOM [id number] 18:02:00 Test Item Value Reference Range Comments SODIUM URINE (BEAKER) (test qpoq=567) 58 meq/L Reference Range: No NormalsURINALYSIS W/ [id number] 17:33:00 Test Item Value Reference Range Comments COLOR (BEAKER) (test ksno=426) Yellow CLARITY (BEAKER) (test tweq=593) Clear SPECIFIC GRAVITY UA (BEAKER) (test gucq=126) 1.009 1.001-1.035 PH UA (BEAKER) (test chzb=124) 6.0 5.0-8.0 PROTEIN UA (BEAKER) (test ckmg=292) Negative Negative GLUCOSE UA (BEAKER) (test ujbm=759) Negative Negative KETONES UA (BEAKER) (test nzyq=509) Negative Negative BILIRUBIN UA (BEAKER) (test bmxe=949) Negative Negative BLOOD UA (BEAKER) (test lnfm=421) Negative Negative NITRITE UA (BEAKER) (test xfck=093) Negative Negative LEUKOCYTE ESTERASE UA (BEAKER) (test sdql=131) Negative Negative UROBILINOGEN UA (BEAKER) (test xjpt=263) 4.0 mg/dL 0.2-1.0 RBC UA (BEAKER) (test bkqd=780) < /HPF WBC UA (BEAKER) (test dtzb=431) 2 /HPF BACTERIA (BEAKER) (test duiy=690) Rare SOURCE(BEAKER) (test ewfw=6620) CBC W/PLT COUNT & AUTO [id number] 06:53:00 Test Item Value Reference Range Comments WHITE BLOOD CELL COUNT (BEAKER) (test icfp=233) 3.5 K/ L 4.0-10.0 RED BLOOD CELL COUNT (BEAKER) (test rtcb=585) 2.17 M/ L 4.20-5.80 HEMOGLOBIN (BEAKER) (test inqg=281) 7.9 GM/DL 13.0-16.8 HEMATOCRIT (BEAKER) (test uazs=647) 23.9 % 40.0-50.0 MEAN CORPUSCULAR VOLUME (BEAKER) (test sllw=640) 110.0 fL 82.0-98.0 MEAN CORPUSCULAR HEMOGLOBIN (BEAKER) (test 36.1 pg 27.0-33.0 ausj=196) MEAN CORPUSCULAR HEMOGLOBIN CONC (BEAKER) (test 32.9 GM/DL 32.0-36.0 vxff=163) RED CELL DISTRIBUTION WIDTH (BEAKER) (test 14.0 % 10.3-14.2 dims=795) PLATELET COUNT (BEAKER) (test noin=042) 77 K/CU MM 150-430 MEAN PLATELET VOLUME (BEAKER) (test wiez=268) 6.1 fL 6.5-10.5 NUCLEATED RED BLOOD CELLS (BEAKER) (test 0 /100 WBC 0-0 ykul=363) NEUTROPHILS RELATIVE PERCENT (BEAKER) (test 56 % steo=464) LYMPHOCYTES RELATIVE PERCENT (BEAKER) (test 20 % obhu=398) MONOCYTES RELATIVE PERCENT (BEAKER) (test 18 % xblv=246) EOSINOPHILS RELATIVE PERCENT (BEAKER) (test 6 % ylws=973) BASOPHILS RELATIVE PERCENT (BEAKER) (test 1 % jlkf=059) NEUTROPHILS ABSOLUTE COUNT (BEAKER) (test 1.95 K/ L 1.80-8.00 xldw=388) LYMPHOCYTES ABSOLUTE COUNT (BEAKER) (test 0.69 K/ L 1.48-4.50 njgh=750) MONOCYTES ABSOLUTE COUNT (BEAKER) (test wfyt=123) 0.62 K/ L 0.00-1.30 EOSINOPHILS ABSOLUTE COUNT (BEAKER) (test 0.20 K/ L 0.00-0.50 dcbn=362) BASOPHILS ABSOLUTE COUNT (BEAKER) (test ennb=210) 0.03 K/ L 0.00-0.20 0.00BASI METABOLIC [id number] 06:45:00 Test Item Value Reference Range Comments SODIUM (BEAKER) (test 134 meq/L 136-145 ppbq=453) POTASSIUM (BEAKER) (test 3.6 meq/L 3.5-5.1 ofoo=305) CHLORIDE (BEAKER) (test 106 meq/L 98-107 cocm=397) CO2 (BEAKER) (test 21 meq/L 22-29 uqeg=365) BLOOD UREA NITROGEN 14 mg/dL 7-21 (BEAKER) (test katf=175) CREATININE (BEAKER) (test 1.33 mg/dL 0.57-1.25 wnrt=870) GLUCOSE RANDOM (BEAKER) 71 mg/dL 70-105 (test npko=099) CALCIUM (BEAKER) (test 7.6 mg/dL 8.4-10.2 yjap=527) EGFR (BEAKER) (test 57 mL/min/1.73 sq m ESTIMATED GFR IS NOT pexx=7102) ACCURATE CREATININE CLEARANCE IN PREDICTING GLOMERULAR FILTRATION RATE. ESTIMATED GFR IS NOT APPLICABLE FOR DIALYSIS PATIENTS. Specimen moderately ictericHEPATIC FUNCTION [id number] 06:40:00 Test Item Value Reference Range Comments TOTAL PROTEIN (BEAKER) (test lxpb=337) 5.6 gm/dL 6.0-8.3 ALBUMIN (BEAKER) (test eaqu=9973) 2.1 g/dL 3.5-5.0 BILIRUBIN TOTAL (BEAKER) (test nfzd=336) 4.4 mg/dL 0.2-1.2 BILIRUBIN DIRECT (BEAKER) (test nzlt=800) 2.9 mg/dL 0.1-0.5 ALKALINE PHOSPHATASE (BEAKER) (test ucww=418) 86 U/L 40-150 AST (SGOT) (BEAKER) (test pxsa=411) 45 U/L 5-34 ALT (SGPT) (BEAKER) (test vmug=483) 13 U/L 6-55 Specimen moderately ictericPROTHROMBIN [id number] 06:05:00 Test Item Value Reference Range Comments PROTIME (BEAKER) (test wkij=887) 29.4 seconds 11.7-14.7 INR (BEAKER) (test fkje=073) 2.8 <=5.9 RECOMMENDED COUMADIN/WARFARIN INR THERAPY RANGESSTANDARD DOSE: 2.0 - 3.0 Includes: PROPHYLAXIS forvenous thrombosis, systemic embolization; TREATMENT for venous thrombosis and/or pulmonary embolus.HIGH RISK: Target INR is 2.5-3.5 for patients with mechanical heart valves.BODY FLUID CELL COUNT WITH [id number] 20:51:00 Test Item Value Reference Range Comments APPEARANCE FLUID (BEAKER) (test gbpb=044) Slightly Hazy Clear COLOR FLUID (BEAKER) (test cbyf=944) Yellow Colorless, Straw RBC FLUID (BEAKER) (test wdlt=400) 545 /cu mm <=1 ADJUSTED WBC FLUID (BEAKER) (test jlau=9289) 104 /cu mm <=5 LINING CELLS (BEAKER) (test lqot=8153) 1 /cu mm <=1 NEUTROPHILS FLUID (BEAKER) (test gxns=0282) 3 % LYMPHS FLUID (BEAKER) (test uzvs=477) 13 % MONO/MACROPHAGE FLUID (BEAKER) (test 84 % sivm=312) EOSINOPHILS FLUID (BEAKER) (test wlfu=687) 0 % BASO FLUID (BEAKER) (test ojvc=188) 0 % CONTAINER BODY FLUID (BEAKER) (test EDTA Tube iaii=8822) POCT-GLUCOSE [id number] 18:48:00 Test Item Value Reference Range Comments POC-GLUCOSE METER (BEAKER) 105 mg/dL 70-110 TESTED AT [facility] [address] [facility] (test digo=7011) [facility] [address] BASIC METABOLIC [id number] 05:45:00 Test Item Value Reference Range Comments SODIUM (BEAKER) (test 133 meq/L 136-145 lqku=435) POTASSIUM (BEAKER) (test 4.3 meq/L 3.5-5.1 Specimen moderately mwxh=078) hemolyzed CHLORIDE (BEAKER) (test 107 meq/L 98-107 vmsm=497) CO2 (BEAKER) (test 19 meq/L 22-29 uurg=986) BLOOD UREA NITROGEN 10 mg/dL 7-21 (BEAKER) (test tmwk=565) CREATININE (BEAKER) (test 0.86 mg/dL 0.57-1.25 Specimen moderately lubr=514) hemolyzed GLUCOSE RANDOM (BEAKER) 68 mg/dL 70-105 (test hxfp=313) CALCIUM (BEAKER) (test 7.5 mg/dL 8.4-10.2 pywq=506) EGFR (BEAKER) (test 94 mL/min/1.73 sq m ESTIMATED GFR IS NOT kbhy=6205) ACCURATE CREATININE CLEARANCE IN PREDICTING GLOMERULAR FILTRATION RATE. ESTIMATED GFR IS NOT APPLICABLE FOR DIALYSIS PATIENTS. Specimen slightly ictericHEPATIC FUNCTION [id number] 05:45:00 Test Item Value Reference Range Comments TOTAL PROTEIN (BEAKER) (test 5.9 gm/dL 6.0-8.3 Specimen moderately hemolyzed hicz=117) ALBUMIN (BEAKER) (test 1.9 g/dL 3.5-5.0 Specimen moderately hemolyzed llwh=8171) BILIRUBIN TOTAL (BEAKER) (test 4.4 mg/dL 0.2-1.2 Specimen moderately hemolyzed kfnc=749) BILIRUBIN DIRECT (BEAKER) 2.6 mg/dL 0.1-0.5 Specimen moderately hemolyzed (test dksi=550) ALKALINE PHOSPHATASE (BEAKER) 86 U/L 40-150 (test fbby=596) AST (SGOT) (BEAKER) (test 74 U/L 5-34 Specimen moderately hemolyzed bxch=774) ALT (SGPT) (BEAKER) (test 17 U/L 6-55 Specimen moderately jink=841) hemolyzed Specimen slightly ictericCBC W/PLT COUNT & AUTO [id number] 05:21 :00 Test Item Value Reference Range Comments WHITE BLOOD CELL COUNT (BEAKER) (test nkqt=419) 3.5 K/ L 4.0-10.0 RED BLOOD CELL COUNT (BEAKER) (test jcca=270) 2.06 M/ L 4.20-5.80 HEMOGLOBIN (BEAKER) (test qjvt=438) 7.9 GM/DL 13.0-16.8 HEMATOCRIT (BEAKER) (test umjw=822) 22.8 % 40.0-50.0 MEAN CORPUSCULAR VOLUME (BEAKER) (test qvyz=382) 110.0 fL 82.0-98.0 MEAN CORPUSCULAR HEMOGLOBIN (BEAKER) (test 38.2 pg 27.0-33.0 dovh=809) MEAN CORPUSCULAR HEMOGLOBIN CONC (BEAKER) (test 34.6 GM/DL 32.0-36.0 yqsr=462) RED CELL DISTRIBUTION WIDTH (BEAKER) (test 13.5 % 10.3-14.2 ckkh=178) PLATELET COUNT (BEAKER) (test fyub=818) 61 K/CU MM 150-430 MEAN PLATELET VOLUME (BEAKER) (test tefd=323) 6.8 fL 6.5-10.5 NUCLEATED RED BLOOD CELLS (BEAKER) (test 0 /100 WBC 0-0 tmvr=688) NEUTROPHILS RELATIVE PERCENT (BEAKER) (test 51 % mxpr=230) LYMPHOCYTES RELATIVE PERCENT (BEAKER) (test 24 % vxes=518) MONOCYTES RELATIVE PERCENT (BEAKER) (test 18 % kcyt=891) EOSINOPHILS RELATIVE PERCENT (BEAKER) (test 7 % rkmu=425) BASOPHILS RELATIVE PERCENT (BEAKER) (test 1 % gdey=131) NEUTROPHILS ABSOLUTE COUNT (BEAKER) (test 1.76 K/ L 1.80-8.00 vyca=701) LYMPHOCYTES ABSOLUTE COUNT (BEAKER) (test 0.85 K/ L 1.48-4.50 vgjv=912) MONOCYTES ABSOLUTE COUNT (BEAKER) (test crgx=249) 0.61 K/ L 0.00-1.30 EOSINOPHILS ABSOLUTE COUNT (BEAKER) (test 0.23 K/ L 0.00-0.50 tjcx=502) BASOPHILS ABSOLUTE COUNT (BEAKER) (test mmrm=047) 0.02 K/ L 0.00-0.20 0.00PROTHROMBIN [id number] 05:19:00 Test Item Value Reference Range Comments PROTIME (BEAKER) (test sqvr=109) 28.2 seconds 11.7-14.7 INR (BEAKER) (test hnbj=909) 2.6 <=5.9 RECOMMENDED COUMADIN/WARFARIN INR THERAPY RANGESSTANDARD DOSE: 2.0 - 3.0 Includes: PROPHYLAXIS forvenous thrombosis, systemic embolization; TREATMENT for venous thrombosis and/or pulmonary embolus.HIGH RISK: Target INR is 2.5-3.5 for patients with mechanical heart valves.BODY FLUID CULTURE + GRAM [id number] 14:14:00 Test Item Value Reference Range Comments CULTURE (BEAKER) (test yuwp=7985) No growth GRAM STAIN RESULT (BEAKER) (test 2+ WBCs gzhp=6587) GRAM STAIN RESULT (BEAKER) (test No organisms seen owbj=48235) CBC W/PLT COUNT & AUTO [id number] 10:28:00 Test Item Value Reference Range Comments WHITE BLOOD CELL COUNT (BEAKER) (test vpas=854) 3.6 K/ L 4.0-10.0 RED BLOOD CELL COUNT (BEAKER) (test xxom=528) 2.17 M/ L 4.20-5.80 HEMOGLOBIN (BEAKER) (test qjff=479) 7.7 GM/DL 13.0-16.8 HEMATOCRIT (BEAKER) (test wdwq=273) 23.8 % 40.0-50.0 MEAN CORPUSCULAR VOLUME (BEAKER) (test yaof=131) 110.0 fL 82.0-98.0 MEAN CORPUSCULAR HEMOGLOBIN (BEAKER) (test 35.3 pg 27.0-33.0 ytlx=849) MEAN CORPUSCULAR HEMOGLOBIN CONC (BEAKER) (test 32.1 GM/DL 32.0-36.0 dlkl=739) RED CELL DISTRIBUTION WIDTH (BEAKER) (test 13.7 % 10.3-14.2 tzyt=981) PLATELET COUNT (BEAKER) (test suaf=248) 62 K/CU MM 150-430 MEAN PLATELET VOLUME (BEAKER) (test mbhk=698) 6.5 fL 6.5-10.5 NUCLEATED RED BLOOD CELLS (BEAKER) (test 0 /100 WBC 0-0 bidv=447) NEUTROPHILS RELATIVE PERCENT (BEAKER) (test 58 % bwdq=445) LYMPHOCYTES RELATIVE PERCENT (BEAKER) (test 18 % wzll=217) MONOCYTES RELATIVE PERCENT (BEAKER) (test 17 % xqrl=387) EOSINOPHILS RELATIVE PERCENT (BEAKER) (test 8 % rqmq=295) BASOPHILS RELATIVE PERCENT (BEAKER) (test 0 % sfub=658) NEUTROPHILS ABSOLUTE COUNT (BEAKER) (test 2.10 K/ L 1.80-8.00 ubbx=578) LYMPHOCYTES ABSOLUTE COUNT (BEAKER) (test 0.63 K/ L 1.48-4.50 jvbg=566) MONOCYTES ABSOLUTE COUNT (BEAKER) (test cwpt=720) 0.59 K/ L 0.00-1.30 EOSINOPHILS ABSOLUTE COUNT (BEAKER) (test 0.28 K/ L 0.00-0.50 lquk=881) BASOPHILS ABSOLUTE COUNT (BEAKER) (test osdi=708) 0.00 K/ L 0.00-0.20 [id number] 10:16:00 Test Item Value Reference Range Comments PROCALCITONIN (BEAKER) (test wysw=3124) < ng/mL <0.05 SEPSIS RISK (ng/mL)Low: 0.05-0.50Intermediate: 0.51-2.00High: & gt;=2.01HEPATIC FUNCTION [id number] 06:26:00 Test Item Value Reference Range Comments TOTAL PROTEIN (BEAKER) (test mlru=563) 5.6 gm/dL 6.0-8.3 ALBUMIN (BEAKER) (test hosi=6258) 1.9 g/dL 3.5-5.0 BILIRUBIN TOTAL (BEAKER) (test smtq=821) 4.7 mg/dL 0.2-1.2 BILIRUBIN DIRECT (BEAKER) (test gvqi=872) 2.9 mg/dL 0.1-0.5 ALKALINE PHOSPHATASE (BEAKER) (test cawa=372) 85 U/L 40-150 AST (SGOT) (BEAKER) (test athp=042) 53 U/L 5-34 ALT (SGPT) (BEAKER) (test hcyn=756) 14 U/L 6-55 Specimen moderately ictericBASIC METABOLIC [id number] 06:26:00 Test Item Value Reference Range Comments SODIUM (BEAKER) (test 134 meq/L 136-145 irti=334) POTASSIUM (BEAKER) (test 3.8 meq/L 3.5-5.1 ftzz=725) CHLORIDE (BEAKER) (test 107 meq/L 98-107 qydf=710) CO2 (BEAKER) (test 19 meq/L 22-29 weld=292) BLOOD UREA NITROGEN 8 mg/dL 7-21 (BEAKER) (test hdbv=972) CREATININE (BEAKER) (test 0.73 mg/dL 0.57-1.25 xtcv=871) GLUCOSE RANDOM (BEAKER) 73 mg/dL 70-105 (test rhsu=660) CALCIUM (BEAKER) (test 7.2 mg/dL 8.4-10.2 cgsw=785) EGFR (BEAKER) (test 113 mL/min/1.73 sq m ESTIMATED GFR IS NOT kqmx=5250) ACCURATE CREATININE CLEARANCE IN PREDICTING GLOMERULAR FILTRATION RATE. ESTIMATED GFR IS NOT APPLICABLE FOR DIALYSIS PATIENTS. Specimen moderately ictericPROTHROMBIN [id number] 06:05:00 Test Item Value Reference Range Comments PROTIME (BEAKER) (test seof=270) 30.9 seconds 11.7-14.7 INR (BEAKER) (test qqqx=156) 3.0 <=5.9 RECOMMENDED COUMADIN/WARFARIN INR THERAPY RANGESSTANDARD DOSE: 2.0 - 3.0 Includes: PROPHYLAXIS forvenous thrombosis, systemic embolization; TREATMENT for venous thrombosis and/or pulmonary embolus.HIGH RISK: Target INR is 2.5-3.5 for patients with mechanical heart valves.[id number] 05:54:00 Test Item Value Reference Range Comments PREALBUMIN (BEAKER) (test yito=709) < mg/dL 14-45 URINE [id number] 12:11:00 Test Item Value Reference Range Comments CULTURE (BEAKER) (test nyxz=6029) No growth VANCOMYCIN LEVEL, [id number] 09:26:00 Test Item Value Reference Range Comments VANCOMYCIN TROUGH (BEAKER) (test pcia=476) 15.3 ug/mL 10.0-20.0 HEPATIC FUNCTION [id number] 06:17:00 Test Item Value Reference Range Comments TOTAL PROTEIN (BEAKER) (test flve=969) 5.6 gm/dL 6.0-8.3 ALBUMIN (BEAKER) (test xwcj=7831) 2.0 g/dL 3.5-5.0 BILIRUBIN TOTAL (BEAKER) (test xvxx=174) 4.2 mg/dL 0.2-1.2 BILIRUBIN DIRECT (BEAKER) (test lunu=977) 2.7 mg/dL 0.1-0.5 ALKALINE PHOSPHATASE (BEAKER) (test ohlu=031) 98 U/L 40-150 AST (SGOT) (BEAKER) (test mtdp=664) 45 U/L 5-34 ALT (SGPT) (BEAKER) (test tjie=230) 12 U/L 6-55 Specimen slightly ictericBASIC METABOLIC [id number] 06:17:00 Test Item Value Reference Range Comments SODIUM (BEAKER) (test 133 meq/L 136-145 xqht=876) POTASSIUM (BEAKER) (test 3.4 meq/L 3.5-5.1 txgo=170) CHLORIDE (BEAKER) (test 107 meq/L 98-107 rqlq=164) CO2 (BEAKER) (test 22 meq/L 22-29 zmtn=432) BLOOD UREA NITROGEN 7 mg/dL 7-21 (BEAKER) (test dvit=629) CREATININE (BEAKER) (test 0.73 mg/dL 0.57-1.25 tqcg=551) GLUCOSE RANDOM (BEAKER) 87 mg/dL 70-105 (test vgem=805) CALCIUM (BEAKER) (test 7.2 mg/dL 8.4-10.2 unex=245) EGFR (BEAKER) (test 113 mL/min/1.73 sq m ESTIMATED GFR IS NOT zpav=8330) ACCURATE CREATININE CLEARANCE IN PREDICTING GLOMERULAR FILTRATION RATE. ESTIMATED GFR IS NOT APPLICABLE FOR DIALYSIS PATIENTS. Specimen slightly ictericPROTHROMBIN [id number] 06:04:00 Test Item Value Reference Range Comments PROTIME (BEAKER) (test rvrb=942) 31.7 seconds 11.7-14.7 INR (BEAKER) (test dvkv=915) 3.0 <=5.9 RECOMMENDED COUMADIN/WARFARIN INR THERAPY RANGESSTANDARD DOSE: 2.0 - 3.0 Includes: PROPHYLAXIS forvenous thrombosis, systemic embolization; TREATMENT for venous thrombosis and/or pulmonary embolus.HIGH RISK: Target INR is 2.5-3.5 for patients with mechanical heart valves.VITAMIN B12 AND [id number] 19:36 :00 Test Item Value Reference Range Comments VITAMIN B12 (BEAKER) (test gzwv=774) 1121 pg/mL 213-816 FOLATE (BEAKER) (test nflz=764) 18.3 ng/mL >=7.0 Effective 09/13/2014: Folate Reference Range ChangeNew: >=7.0 Previous: & gt;=5.4VITAMIN B12 AND [id number] 14:57:00 Test Item Value Reference Range Comments VITAMIN B12 (BEAKER) (test lerw=424) 1325 pg/mL 213-816 FOLATE (BEAKER) (test vevr=320) 8.3 ng/mL >=7.0 Effective 09/13/2014: Folate Reference Range ChangeNew: >=7.0 Previous: & gt;=5.4ANTI-NUCLEAR ANTIBODY (CHERYL)2017-02-03 13:56:00 Test Item Value Reference Range Comments ANTI-NUCLEAR ANTIBODY (CHERYL) (BEAKER) (test Negative Negative dkge=306) HEPATITIS B CORE ANTIBODY, [id number] 12:27:00 Test Item Value Reference Range Comments HEPATITIS B CORE TOTAL ANTIBODY (BEAKER) (test Nonreactive Nonreactive pgma=414) CRYPTOCOCCAL [id number] 11:25:00 Test Item Value Reference Range Comments CRYPTOCOCCAL ANTIGEN, SERUM (BEAKER) (test Negative Negative, Interference svbv=8045) HEPATITIS B SURFACE [id number] 11:15:00 Test Item Value Reference Range Comments HEPATITIS B SURFACE ANTIBODY (BEAKER) (test < mIU/mL <8.0 gjpn=237) HEPATITIS B SURFACE [id number] 09:53:00 Test Item Value Reference Range Comments HEPATITIS B SURFACE ANTIGEN (2) (BEAKER) (test Nonreactive Nonreactive adgp=5692) HIV-1 ANTIGEN WITH HIV-1/2 [id number] 09:53:00 Test Item Value Reference Range Comments HIV-1 ANTIGEN WITH HIV 1\\T\\2 ANTIBODY (2) Nonreactive Nonreactive (BEAKER) (test utdu=6810) HEPATIC FUNCTION [id number] 07:01:00 Test Item Value Reference Range Comments TOTAL PROTEIN (BEAKER) (test regb=461) 5.5 gm/dL 6.0-8.3 ALBUMIN (BEAKER) (test hyye=0783) 2.0 g/dL 3.5-5.0 BILIRUBIN TOTAL (BEAKER) (test qqyw=560) 3.8 mg/dL 0.2-1.2 BILIRUBIN DIRECT (BEAKER) (test tjjg=655) 2.5 mg/dL 0.1-0.5 ALKALINE PHOSPHATASE (BEAKER) (test pgxo=053) 108 U/L 40-150 AST (SGOT) (BEAKER) (test xhgu=236) 40 U/L 5-34 ALT (SGPT) (BEAKER) (test prag=440) 10 U/L 6-55 Specimen slightly ictericBASIC METABOLIC [id number] 07:01:00 Test Item Value Reference Range Comments SODIUM (BEAKER) (test 133 meq/L 136-145 uygi=877) POTASSIUM (BEAKER) (test 3.7 meq/L 3.5-5.1 rojb=147) CHLORIDE (BEAKER) (test 108 meq/L 98-107 iqra=682) CO2 (BEAKER) (test 20 meq/L 22-29 bjcx=779) BLOOD UREA NITROGEN 7 mg/dL 7-21 (BEAKER) (test cqed=830) CREATININE (BEAKER) (test 0.76 mg/dL 0.57-1.25 zqgd=375) GLUCOSE RANDOM (BEAKER) 100 mg/dL 70-105 (test msqq=046) CALCIUM (BEAKER) (test 7.3 mg/dL 8.4-10.2 able=404) EGFR (BEAKER) (test 108 mL/min/1.73 sq m ESTIMATED GFR IS NOT swfa=8197) ACCURATE CREATININE CLEARANCE IN PREDICTING GLOMERULAR FILTRATION RATE. ESTIMATED GFR IS NOT APPLICABLE FOR DIALYSIS PATIENTS. Specimen slightly ictericC W/PLT COUNT & AUTO [id number] 06:53 :00 Test Item Value Reference Range Comments WHITE BLOOD CELL COUNT (BEAKER) (test nrkb=215) 3.5 K/ L 4.0-10.0 RED BLOOD CELL COUNT (BEAKER) (test qaqd=258) 1.83 M/ L 4.20-5.80 HEMOGLOBIN (BEAKER) (test dupk=668) 7.3 GM/DL 13.0-16.8 HEMATOCRIT (BEAKER) (test fuxc=363) 19.9 % 40.0-50.0 MEAN CORPUSCULAR VOLUME (BEAKER) (test wjlu=827) 109.0 fL 82.0-98.0 MEAN CORPUSCULAR HEMOGLOBIN (BEAKER) (test 39.9 pg 27.0-33.0 nzsm=136) MEAN CORPUSCULAR HEMOGLOBIN CONC (BEAKER) (test 36.6 GM/DL 32.0-36.0 opzi=183) RED CELL DISTRIBUTION WIDTH (BEAKER) (test 14.3 % 10.3-14.2 rvyb=905) PLATELET COUNT (BEAKER) (test rhkk=685) 35 K/CU MM 150-430 MEAN PLATELET VOLUME (BEAKER) (test hdkb=167) 6.6 fL 6.5-10.5 NUCLEATED RED BLOOD CELLS (BEAKER) (test 0 /100 WBC 0-0 cnnl=947) NEUTROPHILS RELATIVE PERCENT (BEAKER) (test 60 % gmhr=611) LYMPHOCYTES RELATIVE PERCENT (BEAKER) (test 18 % kbkm=831) MONOCYTES RELATIVE PERCENT (BEAKER) (test 17 % jeei=779) EOSINOPHILS RELATIVE PERCENT (BEAKER) (test 6 % hcqd=421) BASOPHILS RELATIVE PERCENT (BEAKER) (test 0 % fopt=034) NEUTROPHILS ABSOLUTE COUNT (BEAKER) (test 2.06 K/ L 1.80-8.00 yrac=182) LYMPHOCYTES ABSOLUTE COUNT (BEAKER) (test 0.61 K/ L 1.48-4.50 fxye=445) MONOCYTES ABSOLUTE COUNT (BEAKER) (test ttpb=637) 0.58 K/ L 0.00-1.30 EOSINOPHILS ABSOLUTE COUNT (BEAKER) (test 0.19 K/ L 0.00-0.50 wuvl=531) BASOPHILS ABSOLUTE COUNT (BEAKER) (test ibxs=818) 0.01 K/ L 0.00-0.20 0.00PROTHROMBIN [id number] 06:39:00 Test Item Value Reference Range Comments PROTIME (BEAKER) (test qeyp=778) 30.6 seconds 11.7-14.7 INR (BEAKER) (test jqbw=926) 2.9 <=5.9 RECOMMENDED COUMADIN/WARFARIN INR THERAPY RANGESSTANDARD DOSE: 2.0 - 3.0 Includes: PROPHYLAXIS forvenous thrombosis, systemic embolization; TREATMENT for venous thrombosis and/or pulmonary embolus.HIGH RISK: Target INR is 2.5-3.5 for patients with mechanical heart valves.URINALYSIS W/ [id number] 16 :58:00 Test Item Value Reference Range Comments COLOR (BEAKER) (test adyq=401) Yellow CLARITY (BEAKER) (test deej=465) Clear SPECIFIC GRAVITY UA (BEAKER) (test 1.025 1.001-1.035 qllz=380) PH UA (BEAKER) (test rdhd=982) 7.0 5.0-8.0 PROTEIN UA (BEAKER) (test axjn=007) Negative Negative GLUCOSE UA (BEAKER) (test lcsp=363) Negative Negative KETONES UA (BEAKER) (test hzre=495) Negative Negative BILIRUBIN UA (BEAKER) (test bvbj=951) Positive Negative BLOOD UA (BEAKER) (test kltp=328) Negative Negative NITRITE UA (BEAKER) (test ngun=824) Negative Negative LEUKOCYTE ESTERASE UA (BEAKER) (test Negative Negative styv=786) UROBILINOGEN UA (BEAKER) (test lnfs=731) 8.0 mg/dL 0.2-1.0 RBC UA (BEAKER) (test nxwq=828) 0 /HPF WBC UA (BEAKER) (test lwyb=642) 2 /HPF MUCUS (BEAKER) (test pjxa=6458) Rare HYALINE CASTS (BEAKER) (test nxog=072) 3 /LPF SOURCE(BEAKER) (test rkpa=0208) Urine, Clean Catch [id number] 13:32:00 Test Item Value Reference Range Comments FERRITIN (BEAKER) (test irci=280) 116 ng/mL 5-275 Effective 09/13/2014: Reference Range ChangeNew: Male 5-275 Previous: Male 22-322 Female 5-275 Female 10-291HEPATITIS A ANTIBODY, [id number] 13:19:00 Test Item Value Reference Range Comments HEPATITIS A IGG ANTIBODY (BEAKER) (test fxhi=3309) Reactive Nonreactive ALPHA FETOPROTEIN (AFP), TUMOR [id number] 13:17:00 Test Item Value Reference Range Comments ALPHA-FETOPROTEIN (BEAKER) (test ghar=2379) 4.5 ng/mL <10.0 Effective 09/13/2014: Reference Range ChangeNew: <10.0 Previous: 0.0- 8.0HEPATITIS C [id number] 13:17:00 Test Item Value Reference Range Comments HEPATITIS C ANTIBODY (BEAKER) (test wmkk=449) Nonreactive Nonreactive BODY FLUID CELL COUNT WITH [id number] 13:03:00 Test Item Value Reference Range Comments APPEARANCE FLUID (BEAKER) (test quqi=250) Cloudy Clear COLOR FLUID (BEAKER) (test yqwh=415) Yellow Colorless, Straw RBC FLUID (BEAKER) (test xiot=714) 1519 /cu mm <=1 ADJUSTED WBC FLUID (BEAKER) (test dvxw=0774) 108 /cu mm <=5 LINING CELLS (BEAKER) (test nvfx=4438) 14 /cu mm <=1 NEUTROPHILS FLUID (BEAKER) (test obvl=5451) 11 % LYMPHS FLUID (BEAKER) (test ltix=899) 30 % MONO/MACROPHAGE FLUID (BEAKER) (test inbi=887) 59 % EOSINOPHILS FLUID (BEAKER) (test liiy=144) 0 % BASO FLUID (BEAKER) (test qaha=955) 0 % CONTAINER BODY FLUID (BEAKER) (test kgkx=9562) EDTA Tube BASIC METABOLIC [id number] 12:56:00 Test Item Value Reference Range Comments SODIUM (BEAKER) (test 131 meq/L 136-145 nnnx=223) POTASSIUM (BEAKER) (test 4.0 meq/L 3.5-5.1 Specimen moderately krql=666) hemolyzed CHLORIDE (BEAKER) (test 105 meq/L 98-107 kiln=801) CO2 (BEAKER) (test 18 meq/L 22-29 lydi=974) BLOOD UREA NITROGEN 6 mg/dL 7-21 (BEAKER) (test htzf=496) CREATININE (BEAKER) (test 0.72 mg/dL 0.57-1.25 Specimen moderately tufx=433) hemolyzed GLUCOSE RANDOM (BEAKER) 103 mg/dL 70-105 (test lasq=640) CALCIUM (BEAKER) (test 7.4 mg/dL 8.4-10.2 jjdi=398) EGFR (BEAKER) (test 115 mL/min/1.73 sq m ESTIMATED GFR IS NOT hazv=3075) ACCURATE CREATININE CLEARANCE IN PREDICTING GLOMERULAR FILTRATION RATE. ESTIMATED GFR IS NOT APPLICABLE FOR DIALYSIS PATIENTS. Specimen moderately ictericIRON, TIBC, % SAT. (WITHOUT FERRITIN)2017-02-02 12:56 :00 Test Item Value Reference Range Comments IRON (BEAKER) (test pxlx=418) 55 ug/dL 40-160 TOTAL IRON BINDING CAPACITY (BEAKER) (test 175 ug/dL 250-450 kfpx=781) IRON % SATURATION (2) (BEAKER) (test hdqo=5605) 31 % 20-55 HEPATIC FUNCTION [id number] 12:50:00 Test Item Value Reference Range Comments TOTAL PROTEIN (BEAKER) (test 6.7 gm/dL 6.0-8.3 Specimen moderately hemolyzed gfke=376) ALBUMIN (BEAKER) (test 2.0 g/dL 3.5-5.0 Specimen moderately hemolyzed bwfi=2673) BILIRUBIN TOTAL (BEAKER) (test 5.1 mg/dL 0.2-1.2 Specimen moderately hemolyzed vijk=741) BILIRUBIN DIRECT (BEAKER) 2.8 mg/dL 0.1-0.5 Specimen moderately hemolyzed (test ynwl=231) ALKALINE PHOSPHATASE (BEAKER) 99 U/L 40-150 (test rble=861) AST (SGOT) (BEAKER) (test 62 U/L 5-34 Specimen moderately hemolyzed hbbe=410) ALT (SGPT) (BEAKER) (test 15 U/L 6-55 Specimen moderately xeew=784) hemolyzed Specimen moderately ictericCBC W/PLT COUNT & AUTO [id number] 12: 47:00 Test Item Value Reference Range Comments WHITE BLOOD CELL COUNT (BEAKER) (test ipbu=201) 3.3 K/ L 4.0-10.0 RED BLOOD CELL COUNT (BEAKER) (test ieff=938) 2.08 M/ L 4.20-5.80 HEMOGLOBIN (BEAKER) (test wmko=738) 7.8 GM/DL 13.0-16.8 HEMATOCRIT (BEAKER) (test whof=721) 22.9 % 40.0-50.0 MEAN CORPUSCULAR VOLUME (BEAKER) (test mhbh=408) 110.0 fL 82.0-98.0 MEAN CORPUSCULAR HEMOGLOBIN (BEAKER) (test 37.4 pg 27.0-33.0 cchx=918) MEAN CORPUSCULAR HEMOGLOBIN CONC (BEAKER) (test 34.1 GM/DL 32.0-36.0 gizf=978) RED CELL DISTRIBUTION WIDTH (BEAKER) (test 15.0 % 10.3-14.2 npic=598) PLATELET COUNT (BEAKER) (test wsdi=263) 48 K/CU MM 150-430 MEAN PLATELET VOLUME (BEAKER) (test wftr=929) 6.6 fL 6.5-10.5 NUCLEATED RED BLOOD CELLS (BEAKER) (test 0 /100 WBC 0-0 cddx=782) NEUTROPHILS RELATIVE PERCENT (BEAKER) (test 62 % uwfg=345) LYMPHOCYTES RELATIVE PERCENT (BEAKER) (test 17 % qatk=177) MONOCYTES RELATIVE PERCENT (BEAKER) (test 15 % aivt=364) EOSINOPHILS RELATIVE PERCENT (BEAKER) (test 6 % lwun=299) BASOPHILS RELATIVE PERCENT (BEAKER) (test 0 % xjhp=203) NEUTROPHILS ABSOLUTE COUNT (BEAKER) (test 2.03 K/ L 1.80-8.00 ioom=940) LYMPHOCYTES ABSOLUTE COUNT (BEAKER) (test 0.57 K/ L 1.48-4.50 puer=115) MONOCYTES ABSOLUTE COUNT (BEAKER) (test bwlo=314) 0.48 K/ L 0.00-1.30 EOSINOPHILS ABSOLUTE COUNT (BEAKER) (test 0.19 K/ L 0.00-0.50 gxtq=237) BASOPHILS ABSOLUTE COUNT (BEAKER) (test yxel=617) 0.01 K/ L 0.00-0.20 0.00PROTHROMBIN [id number] 12:42:00 Test Item Value Reference Range Comments PROTIME (BEAKER) (test rgep=298) 27.0 seconds 11.7-14.7 INR (BEAKER) (test qzjd=999) 2.5 <=5.9 RECOMMENDED COUMADIN/WARFARIN INR THERAPY RANGESSTANDARD DOSE: 2.0 - 3.0 Includes: PROPHYLAXIS forvenous thrombosis, systemic embolization; TREATMENT for venous thrombosis and/or pulmonary embolus.HIGH RISK: Target INR is 2.5-3.5 for patients with mechanical heart valves.ALBUMIN, BODY [id number] 11:46:00 Test Item Value Reference Range Comments ALBUMIN FLUID (BEAKER) (test zjhm=662) 0.5 gm/dL Reference Range: No Normals Assay performance has not been validated for this type of specimen.PROTEIN, BODY [id number] 11:42:00 Test Item Value Reference Range Comments PROTEIN FLUID (BEAKER) (test uape=064) 1.3 g/dL Absence of reference range indicates that normals have not been defined.Assay performance has not been validated for this type of specimen.
--- OUTSIDE RECORDS SUMMARY | 2018-10-23 11:24 | XMS REPORT ---
[...] Status Dosage System Date Date Ondansetron HCl [facility] 80249805022 4 MG Orally Active 1 tab every 8 hours as needed for Nausea and vomiting Hydrocortisone ND 84360929397 20 MG Orally AM Active 1 tablet Once a day with food or milk Magnesium Oxide ND 26629515404 400 MG Orally Active 1 tablet BID as needed Rifaximin [facility] [address]-71 550 MG Orally Active 1 tablet Twice a day Pantoprazole ND 44588301902 40 MG Orally Active 1 tablet Sodium Once a day Sodium Chloride ND 46628134833 1 GM Orally TID Active 2 tablets Lactulose ND 45674081846 10 GM/15ML Active 15 ml Orally TID Ondansetron HCl [facility] 42830664942 4 MG Active 1 TAB EVERY 8 HOURS NEEDED FOR NAUSEA AND VOMITING ORALLY 10 DAYS Citalopram [facility] 60832356773 40 MG Orally Active take one Hydrobromide once a day daily Hydrocortisone [facility] 37708895398 10 MG Orally PM Active 1 tablet Once a day with food or milk NuFera [facility] 90319228580 - Orally once a Active 1 tab day Citalopram [facility] 33619676404 10 MG Active TAKE ONE Hydrobromide DAILY Ursodiol [facility] 07065186439 300 MG Orally Active not defined Midodrine HCl [facility] 30799451427 10 MG Orally Active 1 tablet Three times a day Results No Known Results Summary Purpose eClinicalWorks Submission
--- OUTSIDE RECORDS SUMMARY | 2018-10-23 11:24 | XMS REPORT ---
[...] Status Dosage System Date Date Midodrine HCl [facility] 80552886197 10 MG Orally Active 1 tablet Three times a day Pantoprazole [facility] 89652004014 40 MG Orally Active 1 tablet Sodium Once a day Sodium Chloride ND 95400511949 1 GM Orally TID Active 2 tablets Ondansetron HCl ND 05272375496 4 MG Orally Active 1 tab every 8 hours as needed for Nausea and vomiting Hydrocortisone ND 02609085519 20 MG Orally AM Active 1 tablet Once a day with food or milk Ursodiol ND 45532922648 300 MG Orally Active not defined Lactulose ND 73039232305 10 GM/15ML Active 15 ml Orally TID Citalopram [facility] 43784027660 10 MG Active TAKE ONE Hydrobromide DAILY Rifaximin [facility] [address]-33 550 MG Orally Active 1 tablet Twice a day Ondansetron HCl [facility] 78960581092 4 MG Active 1 TAB EVERY 8 HOURS NEEDED FOR NAUSEA AND VOMITING ORALLY 10 DAYS Magnesium Oxide [facility] 68075877522 400 MG Orally Active 1 tablet BID as needed NuFera [facility] 09368273531 - Orally once a Active 1 tab day Hydrocortisone [facility] 35475325882 10 MG Orally PM Active 1 tablet Once a day with food or milk Results No Known Results Summary Purpose eClinicalWorks Submission
[2018-10-23 12:17] VITALS: BMI 24.3
--- NOTE | 2018-10-23 13:25 | RAD REPORT ---
EXAM DESCRIPTION: US - Paracentesis Proc Guidance - 10/23/2018 1:18 pm CLINICAL HISTORY: ASCITES Ascites COMPARISON: Paracentesis Proc Guidance dated 10/09/2018 FINDINGS: Informed consent was obtained and time-out was performed. Patient's abdomen was prepped and draped in the usual sterile fashion. 1% lidocaine was used for loca l anesthetic purposes. A small skin incision was made. A paracentesis catheter was guided into the peroneal cavity under son ographic guidance. A large volume paracentesis was performed. The patient tolerated the procedure well. Patient was administered IV albumin per protocol following the procedure. IMPRESSION: Successful ultrasound-guided paracentesis.
[2018-10-23] MEDS ORDERED: ALBUMIN HUMAN 25% 50 ML IV SCH (13:45)
[2018-10-23 16:48] VITALS: O2SAT 100
[2018-10-23 16:51] VITALS: BP 98/66; TEMP 98.9
== END 2018-10-23 15:30 | disposition home or self-care (01) ==
LOC: DS 11:08
PROVIDERS: ATTEND Family Medicine
DX: K70.31 Alcoholic cirrhosis of liver with ascites (principal); D63.8 Anemia in other chronic diseases classified elsewhere; D69.6 Thrombocytopenia, unspecified; E83.42 Hypomagnesemia; I95.1 Orthostatic hypotension; K21.9 Gastro-esophageal reflux disease without esophagitis; K42.9 Umbilical hernia without obstruction or gangrene; F41.8 Other specified anxiety disorders; F10.11 Alcohol abuse, in remission; Z79.52 Long term (current) use of systemic steroids; Z79.899 Other long term (current) drug therapy; Z76.82 Awaiting organ transplant status
CPT/HCPCS: 49083; 96365; P9047

== ENCOUNTER 2018-10-28 16:26 | Observation (INO) | payer MEDICAID ==
--- OUTSIDE RECORDS SUMMARY | 2018-10-28 16:41 | XMS REPORT ---
:1965 [facility] Address [address] [place] [address] Dr. Lantigua [address] [place] [id number] Care Team Providers Name Role Phone INGRID [...] Value Reference Range Comments CULTURE (BEAKER) (test neup=0187) No growth GRAM STAIN RESULT (BEAKER) (test opzn=3072) No WBCs GRAM STAIN RESULT (BEAKER) (test jvlc=26678) No organisms seen POCT-GLUCOSE [id number] 07:52:00 Test Item Value Reference Range Comments POC-GLUCOSE METER (BEAKER) 115 mg/dL 70-110 TESTED AT [facility] [address] [place] [address] (test ngbm=1197) [facility] [address] [id number] 05:18:00 Test Item Value Reference Range Comments MAGNESIUM (BEAKER) (test aaan=666) 1.9 mg/dL 1.6-2.6 COMPREHENSIVE METABOLIC [id number] 05:18:00 Test Item Value Reference Range Comments TOTAL PROTEIN (BEAKER) 5.2 gm/dL 6.0-8.3 (test punk=831) ALBUMIN (BEAKER) (test 3.4 g/dL 3.5-5.0 bdwx=8118) ALKALINE PHOSPHATASE 113 U/L 40-150 (BEAKER) (test rimx=399) BILIRUBIN TOTAL (BEAKER) 2.9 mg/dL 0.2-1.2 (test hicl=735) SODIUM (BEAKER) (test 131 meq/L 136-145 qiqw=941) POTASSIUM (BEAKER) (test 4.0 meq/L 3.5-5.1 zyzw=244) CHLORIDE (BEAKER) (test 101 meq/L 98-107 ywky=552) CO2 (BEAKER) (test 21 meq/L 22-29 saay=936) BLOOD UREA NITROGEN 28 mg/dL 7-21 (BEAKER) (test euil=047) CREATININE (BEAKER) (test 1.65 mg/dL 0.57-1.25 uhsw=365) GLUCOSE RANDOM (BEAKER) 122 mg/dL 70-105 (test xhtv=605) CALCIUM (BEAKER) (test 9.3 mg/dL 8.4-10.2 iivk=234) AST (SGOT) (BEAKER) (test 15 U/L 5-34 wpmy=591) ALT (SGPT) (BEAKER) (test 8 U/L 6-55 bzvi=869) EGFR (BEAKER) (test 44 mL/min/1.73 sq m ESTIMATED GFR IS NOT qosh=4600) ACCURATE CREATININE CLEARANCE IN PREDICTING GLOMERULAR FILTRATION RATE. ESTIMATED GFR IS NOT APPLICABLE FOR DIALYSIS PATIENTS. Specimen slightly ictericPROTHROMBIN [id number] 04:48:00 Test Item Value Reference Range Comments PROTIME (BEAKER) (test zgxt=270) 20.9 seconds 11.7-14.7 INR (BEAKER) (test yqxv=742) 1.8 <=5.9 RECOMMENDED COUMADIN/WARFARIN INR THERAPY RANGESSTANDARD DOSE: 2.0 - 3.0 Includes: PROPHYLAXIS forvenous thrombosis, systemic embolization; TREATMENT for venous thrombosis and/or pulmonary embolus.HIGH RISK: Target INR is 2.5-3.5 for patients with mechanical heart valves.CBC W/PLT COUNT & AUTO [id number] 04:45:00 Test Item Value Reference Range Comments WHITE BLOOD CELL COUNT (BEAKER) (test jcqx=662) 3.4 K/ L 3.5-10.5 RED BLOOD CELL COUNT (BEAKER) (test xsfz=269) 2.55 M/ L 4.63-6.08 HEMOGLOBIN (BEAKER) (test aixa=047) 8.1 GM/DL 13.7-17.5 HEMATOCRIT (BEAKER) (test fixw=547) 24.0 % 40.1-51.0 MEAN CORPUSCULAR VOLUME (BEAKER) (test xkdt=155) 94.1 fL 79.0-92.2 MEAN CORPUSCULAR HEMOGLOBIN (BEAKER) (test 31.8 pg 25.7-32.2 auiv=867) MEAN CORPUSCULAR HEMOGLOBIN CONC (BEAKER) (test 33.8 GM/DL 32.3-36.5 hhxj=312) RED CELL DISTRIBUTION WIDTH (BEAKER) (test 15.8 % 11.6-14.4 vnza=650) PLATELET COUNT (BEAKER) (test ouau=090) 41 K/CU MM 150-450 MEAN PLATELET VOLUME (BEAKER) (test jmlk=842) 10.0 fL 9.4-12.4 NUCLEATED RED BLOOD CELLS (BEAKER) (test 0 /100 WBC 0-0 fdle=150) NEUTROPHILS RELATIVE PERCENT (BEAKER) (test 63 % anrc=184) LYMPHOCYTES RELATIVE PERCENT (BEAKER) (test 19 % xunv=592) MONOCYTES RELATIVE PERCENT (BEAKER) (test 16 % modb=882) EOSINOPHILS RELATIVE PERCENT (BEAKER) (test 2 % jxof=031) BASOPHILS RELATIVE PERCENT (BEAKER) (test 0 % sdmw=433) NEUTROPHILS ABSOLUTE COUNT (BEAKER) (test 2.13 K/ L 1.78-5.38 iziq=882) LYMPHOCYTES ABSOLUTE COUNT (BEAKER) (test 0.62 K/ L 1.32-3.57 uvtk=702) MONOCYTES ABSOLUTE COUNT (BEAKER) (test udvi=075) 0.52 K/ L 0.30-0.82 EOSINOPHILS ABSOLUTE COUNT (BEAKER) (test 0.08 K/ L 0.04-0.54 hxpq=372) BASOPHILS ABSOLUTE COUNT (BEAKER) (test vtoe=310) 0.00 K/ L 0.01-0.08 IMMATURE GRANULOCYTES-RELATIVE PERCENT (BEAKER) 0 % 0-1 (test yamw=7456) POCT-GLUCOSE [id number] 21:35:00 Test Item Value Reference Range Comments POC-GLUCOSE METER (BEAKER) 215 mg/dL 70-110 TESTED AT [address] (test euaj=5105) [facility] [address] POCT-GLUCOSE [id number] 18:17:00 Test Item Value Reference Range Comments POC-GLUCOSE METER (BEAKER) 149 mg/dL 70-110 TESTED AT [place] [id number] [facility] (test sopj=7229) [facility] [address] COMPREHENSIVE METABOLIC [id number] 07:34:00 Test Item Value Reference Range Comments TOTAL PROTEIN (BEAKER) 4.7 gm/dL 6.0-8.3 Specimen slightly (test blib=459) hemolyzed ALBUMIN (BEAKER) (test 3.0 g/dL 3.5-5.0 Specimen slightly layq=3046) hemolyzed ALKALINE PHOSPHATASE 107 U/L 40-150 (BEAKER) (test acmy=617) BILIRUBIN TOTAL (BEAKER) 3.1 mg/dL 0.2-1.2 Specimen slightly (test hlci=503) hemolyzed SODIUM (BEAKER) (test 125 meq/L 136-145 ktge=860) POTASSIUM (BEAKER) (test 4.9 meq/L 3.5-5.1 Specimen slightly vucj=923) hemolyzed CHLORIDE (BEAKER) (test 96 meq/L 98-107 xbef=163) CO2 (BEAKER) (test 24 meq/L 22-29 nzbp=440) BLOOD UREA NITROGEN 30 mg/dL 7-21 (BEAKER) (test mmqe=452) CREATININE (BEAKER) (test 1.61 mg/dL 0.57-1.25 Specimen slightly cvjz=090) hemolyzed GLUCOSE RANDOM (BEAKER) 127 mg/dL 70-105 (test mbxk=895) CALCIUM (BEAKER) (test 8.6 mg/dL 8.4-10.2 mmyc=587) AST (SGOT) (BEAKER) (test 17 U/L 5-34 Specimen slightly zohv=524) hemolyzed ALT (SGPT) (BEAKER) (test < U/L 6-55 Specimen slightly yywe=522) hemolyzed EGFR (BEAKER) (test 45 mL/min/1.73 sq m ESTIMATED GFR IS NOT znly=0624) ACCURATE CREATININE CLEARANCE IN PREDICTING GLOMERULAR FILTRATION RATE. ESTIMATED GFR IS NOT APPLICABLE FOR DIALYSIS PATIENTS. Specimen slightly [id number] 06:49:00 Test Item Value Reference Range Comments PHOSPHORUS (BEAKER) (test xgyx=612) 3.0 mg/dL 2.3-4.7 [id number] 06:49:00 Test Item Value Reference Range Comments MAGNESIUM (BEAKER) (test ueca=818) 2.0 mg/dL 1.6-2.6 PROTHROMBIN [id number] 06:39:00 Test Item Value Reference Range Comments PROTIME (BEAKER) (test srjo=667) 23.0 seconds 11.7-14.7 INR (BEAKER) (test lttp=145) 2.0 <=5.9 RECOMMENDED COUMADIN/WARFARIN INR THERAPY RANGESSTANDARD DOSE: 2.0 - 3.0 Includes: PROPHYLAXIS forvenous thrombosis, systemic embolization; TREATMENT for venous thrombosis and/or pulmonary embolus.HIGH RISK: Target INR is 2.5-3.5 for patients with mechanical heart valves.CBC W/PLT COUNT & AUTO [id number] 06:37:00 Test Item Value Reference Range Comments WHITE BLOOD CELL COUNT (BEAKER) (test qurq=001) 3.3 K/ L 3.5-10.5 RED BLOOD CELL COUNT (BEAKER) (test szqs=674) 2.43 M/ L 4.63-6.08 HEMOGLOBIN (BEAKER) (test hxam=377) 7.8 GM/DL 13.7-17.5 HEMATOCRIT (BEAKER) (test sujf=613) 22.7 % 40.1-51.0 MEAN CORPUSCULAR VOLUME (BEAKER) (test ufif=831) 93.4 fL 79.0-92.2 MEAN CORPUSCULAR HEMOGLOBIN (BEAKER) (test 32.1 pg 25.7-32.2 bvet=254) MEAN CORPUSCULAR HEMOGLOBIN CONC (BEAKER) (test 34.4 GM/DL 32.3-36.5 ebaq=782) RED CELL DISTRIBUTION WIDTH (BEAKER) (test 15.7 % 11.6-14.4 enzo=560) PLATELET COUNT (BEAKER) (test mvfj=940) 37 K/CU MM 150-450 MEAN PLATELET VOLUME (BEAKER) (test ompl=977) 9.6 fL 9.4-12.4 NUCLEATED RED BLOOD CELLS (BEAKER) (test 0 /100 WBC 0-0 duot=552) NEUTROPHILS RELATIVE PERCENT (BEAKER) (test 70 % vwwp=149) LYMPHOCYTES RELATIVE PERCENT (BEAKER) (test 16 % dwll=894) MONOCYTES RELATIVE PERCENT (BEAKER) (test 11 % puxu=040) EOSINOPHILS RELATIVE PERCENT (BEAKER) (test 2 % zktd=285) BASOPHILS RELATIVE PERCENT (BEAKER) (test 0 % ttbq=338) NEUTROPHILS ABSOLUTE COUNT (BEAKER) (test 2.29 K/ L 1.78-5.38 zini=571) LYMPHOCYTES ABSOLUTE COUNT (BEAKER) (test 0.51 K/ L 1.32-3.57 rvbg=927) MONOCYTES ABSOLUTE COUNT (BEAKER) (test ydsw=331) 0.37 K/ L 0.30-0.82 EOSINOPHILS ABSOLUTE COUNT (BEAKER) (test 0.07 K/ L 0.04-0.54 nprj=556) BASOPHILS ABSOLUTE COUNT (BEAKER) (test czja=378) 0.01 K/ L 0.01-0.08 IMMATURE GRANULOCYTES-RELATIVE PERCENT (BEAKER) 0 % 0-1 (test mmxd=2706) CALCIUM, [id number] 06:36:00 Test Item Value Reference Range Comments CALCIUM IONIZED (BEAKER) (test kmgs=776) 1.00 mmol/L 1.12-1.27 PH, BLOOD (BEAKER) (test dzpv=2962) 7.53 POCT-GLUCOSE [id number] 22:31:00 Test Item Value Reference Range Comments POC-GLUCOSE METER (BEAKER) 185 mg/dL 70-110 TESTED AT [address] (test tbvz=9560) [facility] [address] POCT-GLUCOSE [id number] 16:03:00 Test Item Value Reference Range Comments POC-GLUCOSE METER (BEAKER) 166 mg/dL 70-110 TESTED AT [address] (test bxnh=0602) [facility] [address] POCT-GLUCOSE [id number] 12:05:00 Test Item Value Reference Range Comments POC-GLUCOSE METER (BEAKER) 175 mg/dL 70-110 TESTED AT [address] (test wbpm=4789) [facility] [address] POCT-GLUCOSE [id number] 08:02:00 Test Item Value Reference Range Comments POC-GLUCOSE METER (BEAKER) 162 mg/dL 70-110 TESTED AT [address] (test brkq=2583) [place] [address] [id number] 03:52:00 Test Item Value Reference Range Comments MAGNESIUM (BEAKER) (test 2.1 mg/dL 1.6-2.6 Specimen slightly hemolyzed autg=264) [id number] 03:52:00 Test Item Value Reference Range Comments PHOSPHORUS (BEAKER) (test 3.0 mg/dL 2.3-4.7 Specimen slightly hemolyzed vwnn=263) COMPREHENSIVE METABOLIC [id number] 03:52:00 Test Item Value Reference Range Comments TOTAL PROTEIN (BEAKER) 4.9 gm/dL 6.0-8.3 Specimen slightly (test pysn=047) hemolyzed ALBUMIN (BEAKER) (test 3.2 g/dL 3.5-5.0 Specimen slightly bmco=6973) hemolyzed ALKALINE PHOSPHATASE 109 U/L 40-150 (BEAKER) (test vole=791) BILIRUBIN TOTAL (BEAKER) 2.7 mg/dL 0.2-1.2 Specimen slightly (test ljlx=235) hemolyzed SODIUM (BEAKER) (test 125 meq/L 136-145 tiyb=492) POTASSIUM (BEAKER) (test 4.7 meq/L 3.5-5.1 Specimen slightly iytx=969) hemolyzed CHLORIDE (BEAKER) (test 96 meq/L 98-107 lsnl=338) CO2 (BEAKER) (test 23 meq/L 22-29 vgfn=595) BLOOD UREA NITROGEN 27 mg/dL 7-21 (BEAKER) (test fnyt=177) CREATININE (BEAKER) (test 1.86 mg/dL 0.57-1.25 Specimen slightly txnj=085) hemolyzed GLUCOSE RANDOM (BEAKER) 164 mg/dL 70-105 (test myar=017) CALCIUM (BEAKER) (test 8.4 mg/dL 8.4-10.2 uilu=430) AST (SGOT) (BEAKER) (test 17 U/L 5-34 Specimen slightly mkye=537) hemolyzed ALT (SGPT) (BEAKER) (test 6 U/L 6-55 Specimen slightly cdqi=071) hemolyzed EGFR (BEAKER) (test 38 mL/min/1.73 sq m ESTIMATED GFR IS NOT fgwt=9621) ACCURATE CREATININE CLEARANCE IN PREDICTING GLOMERULAR FILTRATION RATE. ESTIMATED GFR IS NOT APPLICABLE FOR DIALYSIS PATIENTS. Specimen slightly ictericCALCIUM, [id number] 03:13:00 Test Item Value Reference Range Comments CALCIUM IONIZED (BEAKER) (test zciv=515) 0.94 mmol/L 1.12-1.27 PH, BLOOD (BEAKER) (test hcdg=4114) 7.55 PROTHROMBIN [id number] 03:10:00 Test Item Value Reference Range Comments PROTIME (BEAKER) (test jvzd=426) 22.6 seconds 11.7-14.7 INR (BEAKER) (test zubr=710) 2.0 <=5.9 RECOMMENDED COUMADIN/WARFARIN INR THERAPY RANGESSTANDARD DOSE: 2.0 - 3.0 Includes: PROPHYLAXIS forvenous thrombosis, systemic embolization; TREATMENT for venous thrombosis and/or pulmonary embolus.HIGH RISK: Target INR is 2.5-3.5 for patients with mechanical heart valves.CBC W/PLT COUNT & AUTO [id number] 03:03:00 Test Item Value Reference Range Comments WHITE BLOOD CELL COUNT (BEAKER) (test ssvr=122) 3.4 K/ L 3.5-10.5 RED BLOOD CELL COUNT (BEAKER) (test znwp=450) 2.46 M/ L 4.63-6.08 HEMOGLOBIN (BEAKER) (test znhd=331) 7.8 GM/DL 13.7-17.5 HEMATOCRIT (BEAKER) (test insz=185) 23.5 % 40.1-51.0 MEAN CORPUSCULAR VOLUME (BEAKER) (test ivje=420) 95.5 fL 79.0-92.2 MEAN CORPUSCULAR HEMOGLOBIN (BEAKER) (test 31.7 pg 25.7-32.2 smwj=338) MEAN CORPUSCULAR HEMOGLOBIN CONC (BEAKER) (test 33.2 GM/DL 32.3-36.5 gwwx=390) RED CELL DISTRIBUTION WIDTH (BEAKER) (test 15.6 % 11.6-14.4 vqlb=200) PLATELET COUNT (BEAKER) (test kzpj=870) 44 K/CU MM 150-450 MEAN PLATELET VOLUME (BEAKER) (test itmy=080) 10.6 fL 9.4-12.4 NUCLEATED RED BLOOD CELLS (BEAKER) (test 0 /100 WBC 0-0 uqgt=832) NEUTROPHILS RELATIVE PERCENT (BEAKER) (test 79 % izac=732) LYMPHOCYTES RELATIVE PERCENT (BEAKER) (test 12 % hiqw=951) MONOCYTES RELATIVE PERCENT (BEAKER) (test 8 % hjlz=712) EOSINOPHILS RELATIVE PERCENT (BEAKER) (test 0 % ztbe=345) BASOPHILS RELATIVE PERCENT (BEAKER) (test 0 % lacv=350) NEUTROPHILS ABSOLUTE COUNT (BEAKER) (test 2.67 K/ L 1.78-5.38 ggwo=831) LYMPHOCYTES ABSOLUTE COUNT (BEAKER) (test 0.41 K/ L 1.32-3.57 rdsf=584) MONOCYTES ABSOLUTE COUNT (BEAKER) (test lmoe=561) 0.27 K/ L 0.30-0.82 EOSINOPHILS ABSOLUTE COUNT (BEAKER) (test 0.01 K/ L 0.04-0.54 susm=716) BASOPHILS ABSOLUTE COUNT (BEAKER) (test jvzz=976) 0.01 K/ L 0.01-0.08 IMMATURE GRANULOCYTES-RELATIVE PERCENT (BEAKER) 0 % 0-1 (test jqat=0380) POCT-GLUCOSE [id number] 22:50:00 Test Item Value Reference Range Comments POC-GLUCOSE METER (BEAKER) 199 mg/dL 70-110 TESTED AT [facility] [address] [facility] (test ccxe=9214) [facility] [address] BODY FLUID CELL COUNT WITH [id number] 21:09:00 Test Item Value Reference Range Comments APPEARANCE FLUID (BEAKER) (test uthz=498) Clear Clear COLOR FLUID (BEAKER) (test wldp=414) Yellow Colorless, Straw RBC FLUID (BEAKER) (test dzcj=886) 140 /cu mm <=1 ADJUSTED WBC FLUID (BEAKER) (test aqmk=9384) 70 /cu mm <=5 LINING CELLS (BEAKER) (test tbqj=8045) 0 /cu mm <=1 NEUTROPHILS FLUID (BEAKER) (test lhqo=4543) 5 % LYMPHS FLUID (BEAKER) (test tnbi=977) 18 % MONO/MACROPHAGE FLUID (BEAKER) (test wurp=036) 77 % EOSINOPHILS FLUID (BEAKER) (test ryga=941) 0 % BASO FLUID (BEAKER) (test sbzh=133) 0 % CONTAINER BODY FLUID (BEAKER) (test ckja=2538) EDTA Tube CORTISOL,60 [id number] 20:10:00 Test Item Value Reference Range Comments CORTISOL BASELINE NETWORKED (BEAKER) (test 5.6 mcg/dL uxai=7067) CORTISOL 30 MINUTE NETWORKED (BEAKER) (test 13.7 mcg/dL etfr=2276) CORTISOL, 60 MINUTE (BEAKER) (test ggeu=7498) 17.1 ug/dL ACTH STIMULATION TEST INTERPRETATION GUIDELINES(Synonyms: [...] serum cortisollevel 60 minutes after cosyntropin administration.CORTISOL,30 [id number] 19:45:00 Test Item Value Reference Range Comments CORTISOL BASELINE NETWORKED (BEAKER) (test 5.6 mcg/dL hpua=4700) CORTISOL, 30 MINUTE (BEAKER) (test khcd=5091) 13.7 ug/dL ACTH STIMULATION TEST INTERPRETATION GUIDELINES(Synonyms: [...] serum cortisollevel 60 minutes after cosyntropin administration.U/S, [id number] 19:13:00Reason for exam:->therapeuticFINAL REPORT PROCEDURE: Ultrasound- guided paracentesis. INDICATION: Ascites. DESCRIPTION: After obtaining informed written consent, ultrasound scan of the abdomen identified ascites in the right lower quadrant. The overlying skin was prepped and draped in the usual, sterile fashion and local 1% lidocaine anesthesia was administered. A 5 [place] catheter was advanced into the peritoneal cavity and 6000 mL of area fluid was removed. The catheter was removed without immediate complication. Samples were sent for analysis. IMPRESSION:Uncomplicated ultrasound-guided paracentesis with 6000 mL of fluid removed. Signed: Stuart Dupree Verified Date/Time: 09/08/2018 19 :13:16 Reading Location: [address] Ultrasound Reading Room Electronically signed by: Claudia WEAVER 09/08/2018 07:13 PMCORTISOL, [id number] 18:54:00 Test Item Value Reference Range Comments CORTISOL, BASELINE (TUNG) (test rayh=1427) 5.6 ug/dL ACTH STIMULATION TEST INTERPRETATION GUIDELINES(Synonyms: [...] study by Mindy et al (NEVAEH 2000,283( 8):5207-45), the ACTH Stimulation Test provides important prognostic [...] serum cortisollevel 60 minutes after cosyntropin administration.POCT-GLUCOSE [id number] 12:49:00 Test Item Value Reference Range Comments POC-GLUCOSE METER (BEAKER) 184 mg/dL 70-110 TESTED AT [address] (test pmkg=3329) [place] [address] POCT-GLUCOSE [id number] 07:56:00 Test Item Value Reference Range Comments POC-GLUCOSE METER (BEAKER) 174 mg/dL 70-110 TESTED AT [address] (test ooja=3168) [place] [address] B-TYPE NATRIURETIC FACTOR (BNP)2018-09-08 05:20:00 Test Item Value Reference Range Comments B-TYPE NATRIURETIC PEPTIDE (BEAKER) (test 900 pg/mL 0-100 qixu=906) [id number] 05:15:00 Test Item Value Reference Range Comments PHOSPHORUS (BEAKER) (test ppvz=302) 3.2 mg/dL 2.3-4.7 [id number] 05:15:00 Test Item Value Reference Range Comments MAGNESIUM (BEAKER) (test yhxu=454) 2.1 mg/dL 1.6-2.6 COMPREHENSIVE METABOLIC [id number] 05:15:00 Test Item Value Reference Range Comments TOTAL PROTEIN (BEAKER) 4.9 gm/dL 6.0-8.3 (test sjml=614) ALBUMIN (BEAKER) (test 3.2 g/dL 3.5-5.0 tsnw=5441) ALKALINE PHOSPHATASE 109 U/L 40-150 (BEAKER) (test vxbe=689) BILIRUBIN TOTAL (BEAKER) 2.7 mg/dL 0.2-1.2 (test jnag=598) SODIUM (BEAKER) (test 128 meq/L 136-145 qlvk=972) POTASSIUM (BEAKER) (test 3.9 meq/L 3.5-5.1 czts=983) CHLORIDE (BEAKER) (test 98 meq/L 98-107 karp=194) CO2 (BEAKER) (test 23 meq/L 22-29 wxsd=760) BLOOD UREA NITROGEN 27 mg/dL 7-21 (BEAKER) (test odvr=468) CREATININE (BEAKER) (test 2.17 mg/dL 0.57-1.25 bxzl=704) GLUCOSE RANDOM (BEAKER) 136 mg/dL 70-105 (test ebod=055) CALCIUM (BEAKER) (test 8.6 mg/dL 8.4-10.2 kxhl=685) AST (SGOT) (BEAKER) (test 15 U/L 5-34 yxzj=182) ALT (SGPT) (BEAKER) (test 7 U/L 6-55 lcjr=142) EGFR (BEAKER) (test 32 mL/min/1.73 sq m ESTIMATED GFR IS NOT dydq=4924) ACCURATE CREATININE CLEARANCE IN PREDICTING GLOMERULAR FILTRATION RATE. ESTIMATED GFR IS NOT APPLICABLE FOR DIALYSIS PATIENTS. Specimen slightly ictericPROTHROMBIN [id number] 05:01:00 Test Item Value Reference Range Comments PROTIME (BEAKER) (test arhf=035) 22.0 seconds 11.7-14.7 INR (BEAKER) (test frdm=588) 1.9 <=5.9 RECOMMENDED COUMADIN/WARFARIN INR THERAPY RANGESSTANDARD DOSE: 2.0 - 3.0 Includes: PROPHYLAXIS forvenous thrombosis, systemic embolization; TREATMENT for venous thrombosis and/or pulmonary embolus.HIGH RISK: Target INR is 2.5-3.5 for patients with mechanical heart valves.CBC W/PLT COUNT & AUTO [id number] 04:55:00 Test Item Value Reference Range Comments WHITE BLOOD CELL COUNT (BEAKER) (test xayu=589) 4.3 K/ L 3.5-10.5 RED BLOOD CELL COUNT (BEAKER) (test myed=339) 2.46 M/ L 4.63-6.08 HEMOGLOBIN (BEAKER) (test lzkr=606) 7.9 GM/DL 13.7-17.5 HEMATOCRIT (BEAKER) (test mbvy=478) 23.3 % 40.1-51.0 MEAN CORPUSCULAR VOLUME (BEAKER) (test gdww=899) 94.7 fL 79.0-92.2 MEAN CORPUSCULAR HEMOGLOBIN (BEAKER) (test 32.1 pg 25.7-32.2 ksuk=961) MEAN CORPUSCULAR HEMOGLOBIN CONC (BEAKER) (test 33.9 GM/DL 32.3-36.5 vurh=053) RED CELL DISTRIBUTION WIDTH (BEAKER) (test 15.6 % 11.6-14.4 tvga=457) PLATELET COUNT (BEAKER) (test tmis=053) 43 K/CU MM 150-450 MEAN PLATELET VOLUME (BEAKER) (test gmub=332) 9.6 fL 9.4-12.4 NUCLEATED RED BLOOD CELLS (BEAKER) (test 0 /100 WBC 0-0 ezjv=530) NEUTROPHILS RELATIVE PERCENT (BEAKER) (test 63 % qtae=318) LYMPHOCYTES RELATIVE PERCENT (BEAKER) (test 13 % mmtp=097) MONOCYTES RELATIVE PERCENT (BEAKER) (test 19 % tmoc=110) EOSINOPHILS RELATIVE PERCENT (BEAKER) (test 5 % jhaw=231) BASOPHILS RELATIVE PERCENT (BEAKER) (test 0 % rgul=171) NEUTROPHILS ABSOLUTE COUNT (BEAKER) (test 2.72 K/ L 1.78-5.38 svqt=444) LYMPHOCYTES ABSOLUTE COUNT (BEAKER) (test 0.55 K/ L 1.32-3.57 nebh=449) MONOCYTES ABSOLUTE COUNT (BEAKER) (test aksw=115) 0.81 K/ L 0.30-0.82 EOSINOPHILS ABSOLUTE COUNT (BEAKER) (test 0.21 K/ L 0.04-0.54 mxvy=941) BASOPHILS ABSOLUTE COUNT (BEAKER) (test omol=823) 0.01 K/ L 0.01-0.08 IMMATURE GRANULOCYTES-RELATIVE PERCENT (BEAKER) 0 % 0-1 (test kfhq=5218) POCT-GLUCOSE [id number] 23:33:00 Test Item Value Reference Range Comments POC-GLUCOSE METER (BEAKER) 156 mg/dL 70-110 TESTED AT [facility] [address] (test ynxp=0043) [facility] [address] POCT-GLUCOSE [id number] 18:09:00 Test Item Value Reference Range Comments POC-GLUCOSE METER (BEAKER) 170 mg/dL 70-110 TESTED AT [address] (test sslj=9792) [facility] [address] POCT-GLUCOSE [id number] 12:01:00 Test Item Value Reference Range Comments POC-GLUCOSE METER (BEAKER) 181 mg/dL 70-110 TESTED AT [address] (test wopt=9627) [facility] [address] PROTHROMBIN [id number] 08:17:00 Test Item Value Reference Range Comments PROTIME (BEAKER) (test mrla=561) 21.9 seconds 11.7-14.7 INR (BEAKER) (test spbc=871) 1.9 <=5.9 RECOMMENDED COUMADIN/WARFARIN INR THERAPY RANGESSTANDARD DOSE: 2.0 - 3.0 Includes: PROPHYLAXIS forvenous thrombosis, systemic embolization; TREATMENT for venous thrombosis and/or pulmonary embolus.HIGH RISK: Target INR is 2.5-3.5 for patients with mechanical heart valves.POCT-GLUCOSE [id number] 08:07:00 Test Item Value Reference Range Comments POC-GLUCOSE METER (BEAKER) 205 mg/dL 70-110 TESTED AT [address] (test aazs=0781) [facility] [address] COMPREHENSIVE METABOLIC [id number] 07:29:00 Test Item Value Reference Range Comments TOTAL PROTEIN (BEAKER) 4.9 gm/dL 6.0-8.3 (test eake=717) ALBUMIN (BEAKER) (test 3.3 g/dL 3.5-5.0 yqdm=9797) ALKALINE PHOSPHATASE 106 U/L 40-150 (BEAKER) (test icnt=799) BILIRUBIN TOTAL (BEAKER) 2.6 mg/dL 0.2-1.2 (test rwvz=994) SODIUM (BEAKER) (test 129 meq/L 136-145 nskp=100) POTASSIUM (BEAKER) (test 4.9 meq/L 3.5-5.1 cgsn=697) CHLORIDE (BEAKER) (test 98 meq/L 98-107 wqll=083) CO2 (BEAKER) (test 23 meq/L 22-29 tzhw=186) BLOOD UREA NITROGEN 28 mg/dL 7-21 (BEAKER) (test pvgy=998) CREATININE (BEAKER) (test 2.31 mg/dL 0.57-1.25 ddjx=322) GLUCOSE RANDOM (BEAKER) 172 mg/dL 70-105 (test paie=557) CALCIUM (BEAKER) (test 8.5 mg/dL 8.4-10.2 dofb=826) AST (SGOT) (BEAKER) (test 15 U/L 5-34 buut=303) ALT (SGPT) (BEAKER) (test 6 U/L 6-55 ndwf=217) EGFR (BEAKER) (test 30 mL/min/1.73 sq m ESTIMATED GFR IS NOT tjjd=9273) ACCURATE CREATININE CLEARANCE IN PREDICTING GLOMERULAR FILTRATION RATE. ESTIMATED GFR IS NOT APPLICABLE FOR DIALYSIS PATIENTS. Specimen slightly ictericCBC W/PLT COUNT & AUTO [id number] 07:11 :00 Test Item Value Reference Range Comments WHITE BLOOD CELL COUNT (BEAKER) (test gsnb=624) 4.5 K/ L 3.5-10.5 RED BLOOD CELL COUNT (BEAKER) (test vwru=144) 2.47 M/ L 4.63-6.08 HEMOGLOBIN (BEAKER) (test hwzd=972) 7.8 GM/DL 13.7-17.5 HEMATOCRIT (BEAKER) (test amqw=875) 23.3 % 40.1-51.0 MEAN CORPUSCULAR VOLUME (BEAKER) (test saoa=503) 94.3 fL 79.0-92.2 MEAN CORPUSCULAR HEMOGLOBIN (BEAKER) (test 31.6 pg 25.7-32.2 thcc=679) MEAN CORPUSCULAR HEMOGLOBIN CONC (BEAKER) (test 33.5 GM/DL 32.3-36.5 xidx=805) RED CELL DISTRIBUTION WIDTH (BEAKER) (test 15.4 % 11.6-14.4 xycz=321) PLATELET COUNT (BEAKER) (test opoy=965) 43 K/CU MM 150-450 MEAN PLATELET VOLUME (BEAKER) (test whgr=130) 8.7 fL 9.4-12.4 NUCLEATED RED BLOOD CELLS (BEAKER) (test 0 /100 WBC 0-0 tlzc=646) NEUTROPHILS RELATIVE PERCENT (BEAKER) (test 64 % saqe=819) LYMPHOCYTES RELATIVE PERCENT (BEAKER) (test 11 % wzyg=903) MONOCYTES RELATIVE PERCENT (BEAKER) (test 20 % dmxa=550) EOSINOPHILS RELATIVE PERCENT (BEAKER) (test 4 % pzbg=642) BASOPHILS RELATIVE PERCENT (BEAKER) (test 0 % bjsj=030) NEUTROPHILS ABSOLUTE COUNT (BEAKER) (test 2.86 K/ L 1.78-5.38 nify=064) LYMPHOCYTES ABSOLUTE COUNT (BEAKER) (test 0.49 K/ L 1.32-3.57 fusd=505) MONOCYTES ABSOLUTE COUNT (BEAKER) (test bzcd=972) 0.90 K/ L 0.30-0.82 EOSINOPHILS ABSOLUTE COUNT (BEAKER) (test 0.18 K/ L 0.04-0.54 ckjc=166) BASOPHILS ABSOLUTE COUNT (BEAKER) (test jbeo=278) 0.02 K/ L 0.01-0.08 IMMATURE GRANULOCYTES-RELATIVE PERCENT (BEAKER) 0 % 0-1 (test ichf=8161) POCT-GLUCOSE [id number] 22:31:00 Test Item Value Reference Range Comments POC-GLUCOSE METER (BEAKER) 161 mg/dL 70-110 TESTED AT [address] (test aqfb=6352) [place] [id number] POCT-GLUCOSE [id number] 16:31:00 Test Item Value Reference Range Comments POC-GLUCOSE METER (BEAKER) 135 mg/dL 70-110 TESTED AT [address] (test svme=3226) [place] [id number] POCT-GLUCOSE [id number] 12:16:00 Test Item Value Reference Range Comments POC-GLUCOSE METER (BEAKER) 144 mg/dL 70-110 TESTED AT [address] (test dyzc=1073) [facility] [address] POCT-GLUCOSE [id number] 07:53:00 Test Item Value Reference Range Comments POC-GLUCOSE METER (BEAKER) 93 mg/dL 70-110 TESTED AT [address] (test dmhp=5954) [facility] [address] COMPREHENSIVE METABOLIC [id number] 06:55:00 Test Item Value Reference Range Comments TOTAL PROTEIN (BEAKER) 4.8 gm/dL 6.0-8.3 (test gwra=169) ALBUMIN (BEAKER) (test 3.3 g/dL 3.5-5.0 klxi=6717) ALKALINE PHOSPHATASE 103 U/L 40-150 (BEAKER) (test xxcj=631) BILIRUBIN TOTAL (BEAKER) 2.7 mg/dL 0.2-1.2 (test kvcu=260) SODIUM (BEAKER) (test 125 meq/L 136-145 eqin=154) POTASSIUM (BEAKER) (test 4.6 meq/L 3.5-5.1 vhhg=553) CHLORIDE (BEAKER) (test 96 meq/L 98-107 skac=830) CO2 (BEAKER) (test 22 meq/L 22-29 uwmu=915) BLOOD UREA NITROGEN 30 mg/dL 7-21 (BEAKER) (test vatw=300) CREATININE (BEAKER) (test 2.01 mg/dL 0.57-1.25 hzxx=011) GLUCOSE RANDOM (BEAKER) 88 mg/dL 70-105 (test mnli=940) CALCIUM (BEAKER) (test 8.5 mg/dL 8.4-10.2 mbsa=374) AST (SGOT) (BEAKER) (test 17 U/L 5-34 nkhn=509) ALT (SGPT) (BEAKER) (test 7 U/L 6-55 ovli=653) EGFR (BEAKER) (test 35 mL/min/1.73 sq m ESTIMATED GFR IS NOT udxx=3894) ACCURATE CREATININE CLEARANCE IN PREDICTING GLOMERULAR FILTRATION RATE. ESTIMATED GFR IS NOT APPLICABLE FOR DIALYSIS PATIENTS. Specimen slightly ictericPROTHROMBIN [id number] 06:10:00 Test Item Value Reference Range Comments PROTIME (BEAKER) (test ibjg=169) 23.2 seconds 11.7-14.7 INR (BEAKER) (test knod=130) 2.1 <=5.9 RECOMMENDED COUMADIN/WARFARIN INR THERAPY RANGESSTANDARD DOSE: 2.0 - 3.0 Includes: PROPHYLAXIS forvenous thrombosis, systemic embolization; TREATMENT for venous thrombosis and/or pulmonary embolus.HIGH RISK: Target INR is 2.5-3.5 for patients with mechanical heart valves.POCT-GLUCOSE [id number] 22:42:00 Test Item Value Reference Range Comments POC-GLUCOSE METER (BEAKER) 124 mg/dL 70-110 TESTED AT [address] (test xuhp=8912) [facility] [address] POCT-GLUCOSE [id number] 17:04:00 Test Item Value Reference Range Comments POC-GLUCOSE METER (BEAKER) 86 mg/dL 70-110 TESTED AT [address] (test kezp=7091) [facility] [address] POCT-GLUCOSE [id number] 12:08:00 Test Item Value Reference Range Comments POC-GLUCOSE METER (BEAKER) 159 mg/dL 70-110 TESTED AT [facility] [address] [facility] (test vljg=8291) [facility] [address] [id number] 08:39:00 Test Item Value Reference Range Comments PHOSPHORUS (BEAKER) (test pcaq=580) 3.9 mg/dL 2.3-4.7 [id number] 08:39:00 Test Item Value Reference Range Comments MAGNESIUM (BEAKER) (test dsay=571) 2.1 mg/dL 1.6-2.6 COMPREHENSIVE METABOLIC [id number] 08:39:00 Test Item Value Reference Range Comments TOTAL PROTEIN (BEAKER) 5.2 gm/dL 6.0-8.3 (test xrbi=118) ALBUMIN (BEAKER) (test 3.5 g/dL 3.5-5.0 uzbc=4995) ALKALINE PHOSPHATASE 110 U/L 40-150 (BEAKER) (test ooxb=255) BILIRUBIN TOTAL (BEAKER) 2.4 mg/dL 0.2-1.2 (test fmpk=505) SODIUM (BEAKER) (test 122 meq/L 136-145 leri=579) POTASSIUM (BEAKER) (test 4.5 meq/L 3.5-5.1 qlxc=986) CHLORIDE (BEAKER) (test 94 meq/L 98-107 dyyx=565) CO2 (BEAKER) (test 20 meq/L 22-29 vkdr=999) BLOOD UREA NITROGEN 31 mg/dL 7-21 (BEAKER) (test kyqc=178) CREATININE (BEAKER) (test 1.94 mg/dL 0.57-1.25 kkjy=663) GLUCOSE RANDOM (BEAKER) 127 mg/dL 70-105 (test ygsm=599) CALCIUM (BEAKER) (test 8.6 mg/dL 8.4-10.2 dzwr=969) AST (SGOT) (BEAKER) (test 17 U/L 5-34 jqvr=216) ALT (SGPT) (BEAKER) (test 8 U/L 6-55 tuij=665) EGFR (BEAKER) (test 36 mL/min/1.73 sq m ESTIMATED GFR IS NOT dfzh=2740) ACCURATE CREATININE CLEARANCE IN PREDICTING GLOMERULAR FILTRATION RATE. ESTIMATED GFR IS NOT APPLICABLE FOR DIALYSIS PATIENTS. Specimen slightly ictericPOCT-GLUCOSE [id number] 07:49:00 Test Item Value Reference Range Comments POC-GLUCOSE METER (BEAKER) 132 mg/dL 70-110 TESTED AT [facility] [address] [facility] (test isdo=1403) [place] [address] CALCIUM, [id number] 06:35:00 Test Item Value Reference Range Comments CALCIUM IONIZED (BEAKER) (test zhro=914) 1.08 mmol/L 1.12-1.27 PH, BLOOD (BEAKER) (test dexv=0345) 7.39 CBC W/PLT COUNT & AUTO [id number] 05:56:00 Test Item Value Reference Range Comments WHITE BLOOD CELL COUNT (BEAKER) (test qjmh=259) 4.1 K/ L 3.5-10.5 RED BLOOD CELL COUNT (BEAKER) (test pfxw=097) 2.67 M/ L 4.63-6.08 HEMOGLOBIN (BEAKER) (test gcyi=137) 8.3 GM/DL 13.7-17.5 HEMATOCRIT (BEAKER) (test dyiv=895) 24.7 % 40.1-51.0 MEAN CORPUSCULAR VOLUME (BEAKER) (test ovyf=593) 92.5 fL 79.0-92.2 MEAN CORPUSCULAR HEMOGLOBIN (BEAKER) (test 31.1 pg 25.7-32.2 djaa=356) MEAN CORPUSCULAR HEMOGLOBIN CONC (BEAKER) (test 33.6 GM/DL 32.3-36.5 heib=597) RED CELL DISTRIBUTION WIDTH (BEAKER) (test 15.0 % 11.6-14.4 mjjj=848) PLATELET COUNT (BEAKER) (test nlhq=660) 58 K/CU MM 150-450 MEAN PLATELET VOLUME (BEAKER) (test zgcm=578) 9.3 fL 9.4-12.4 NUCLEATED RED BLOOD CELLS (BEAKER) (test 0 /100 WBC 0-0 ljfw=237) NEUTROPHILS RELATIVE PERCENT (BEAKER) (test 64 % krfm=425) LYMPHOCYTES RELATIVE PERCENT (BEAKER) (test 12 % zlkw=488) MONOCYTES RELATIVE PERCENT (BEAKER) (test 18 % gloh=808) EOSINOPHILS RELATIVE PERCENT (BEAKER) (test 5 % urdg=483) BASOPHILS RELATIVE PERCENT (BEAKER) (test 0 % kmib=859) NEUTROPHILS ABSOLUTE COUNT (BEAKER) (test 2.63 K/ L 1.78-5.38 zceu=804) LYMPHOCYTES ABSOLUTE COUNT (BEAKER) (test 0.51 K/ L 1.32-3.57 grod=735) MONOCYTES ABSOLUTE COUNT (BEAKER) (test vduo=675) 0.74 K/ L 0.30-0.82 EOSINOPHILS ABSOLUTE COUNT (BEAKER) (test 0.21 K/ L 0.04-0.54 rsim=584) BASOPHILS ABSOLUTE COUNT (BEAKER) (test evwa=848) 0.01 K/ L 0.01-0.08 IMMATURE GRANULOCYTES-RELATIVE PERCENT (BEAKER) 1 % 0-1 (test nven=2561) PROTHROMBIN [id number] 05:49:00 Test Item Value Reference Range Comments PROTIME (BEAKER) (test lteb=693) 20.4 seconds 11.7-14.7 INR (BEAKER) (test yopl=378) 1.8 <=5.9 RECOMMENDED COUMADIN/WARFARIN INR THERAPY RANGESSTANDARD DOSE: 2.0 - 3.0 Includes: PROPHYLAXIS forvenous thrombosis, systemic embolization; TREATMENT for venous thrombosis and/or pulmonary embolus.HIGH RISK: Target INR is 2.5-3.5 for patients with mechanical heart valves.[id number] 22:31:00 Test Item Value Reference Range Comments SODIUM (BEAKER) (test kqip=197) 123 meq/L 136-145 POTASSIUM (BEAKER) (test tqcy=872) 4.5 meq/L 3.5-5.1 CHLORIDE (BEAKER) (test luho=582) 94 meq/L 98-107 CO2 (BEAKER) (test mkeu=799) 22 meq/L 22-29 Call results "at a decent hour" to [phone]-GLUCOSE [id number] 21: 48:00 Test Item Value Reference Range Comments POC-GLUCOSE METER (BEAKER) 144 mg/dL 70-110 TESTED AT [facility] [address] [facility] (test opxg=9782) [facility] [address] [id number] 17:27:00 Test Item Value Reference Range Comments CORTISOL, TOTAL (BEAKER) (test fzkf=6917) 1.9 ug/dL 3.7-19.4 [id number] 17:03:00 Test Item Value Reference Range Comments SODIUM (BEAKER) (test ngzb=867) 123 meq/L 136-145 POTASSIUM (BEAKER) (test vsxl=574) 4.7 meq/L 3.5-5.1 CHLORIDE (BEAKER) (test fsga=462) 95 meq/L 98-107 CO2 (BEAKER) (test slnp=923) 21 meq/L 22-29 Call resultsPOCT-GLUCOSE [id number] 16:48:00 Test Item Value Reference Range Comments POC-GLUCOSE METER (BEAKER) 117 mg/dL 70-110 TESTED AT [address] (test jajj=6180) [place] [address] SODIUM, RANDOM [id number] 15:12:00 Test Item Value Reference Range Comments SODIUM URINE (BEAKER) (test vrrs=141) < meq/L Reference Range: No NormalsCREATININE, RANDOM [id number] 15:11:00 Test Item Value Reference Range Comments CREATININE URINE (BEAKER) (test szuh=987) 87.5 mg/dL Reference Range: No NormalsOSMOLALITY, [id number] 15:05:00 Test Item Value Reference Range Comments OSMOLALITY URINE (BEAKER) (test epnc=733) 234 mOsm/kg 40-1,400 POCT-GLUCOSE [id number] 13:14:00 Test Item Value Reference Range Comments POC-GLUCOSE METER (BEAKER) 129 mg/dL 70-110 TESTED AT [address] (test vkkg=3220) [place] [address] [id number] 10:06:00 Test Item Value Reference Range Comments SODIUM (BEAKER) (test ogtf=565) 120 meq/L 136-145 POTASSIUM (BEAKER) (test kgvh=386) 4.6 meq/L 3.5-5.1 CHLORIDE (BEAKER) (test zqvu=993) 93 meq/L 98-107 CO2 (BEAKER) (test gwhm=504) 23 meq/L 22-29 Call [id number] 09:01:00 Test Item Value Reference Range Comments POC-GLUCOSE METER (BEAKER) 97 mg/dL 70-110 TESTED AT [facility] [address] (test ygpk=8779) [facility] [address] COMPREHENSIVE METABOLIC [id number] 08:40:00 Test Item Value Reference Range Comments TOTAL PROTEIN (BEAKER) 5.2 gm/dL 6.0-8.3 (test rxff=779) ALBUMIN (BEAKER) (test 3.7 g/dL 3.5-5.0 etan=8092) ALKALINE PHOSPHATASE 104 U/L 40-150 (BEAKER) (test dgat=275) BILIRUBIN TOTAL (BEAKER) 3.3 mg/dL 0.2-1.2 (test rckr=201) SODIUM (BEAKER) (test 120 meq/L 136-145 vmyj=540) POTASSIUM (BEAKER) (test 4.8 meq/L 3.5-5.1 hpau=552) CHLORIDE (BEAKER) (test 93 meq/L 98-107 mqus=846) CO2 (BEAKER) (test 20 meq/L 22-29 isnh=393) BLOOD UREA NITROGEN 31 mg/dL 7-21 (BEAKER) (test eicm=431) CREATININE (BEAKER) (test 1.72 mg/dL 0.57-1.25 qvqe=563) GLUCOSE RANDOM (BEAKER) 99 mg/dL 70-105 (test vigz=299) CALCIUM (BEAKER) (test 8.9 mg/dL 8.4-10.2 mqpu=289) AST (SGOT) (BEAKER) (test 16 U/L 5-34 hepj=719) ALT (SGPT) (BEAKER) (test < U/L 6-55 ccyb=189) EGFR (BEAKER) (test 42 mL/min/1.73 sq m ESTIMATED GFR IS NOT ltde=6369) ACCURATE CREATININE CLEARANCE IN PREDICTING GLOMERULAR FILTRATION RATE. ESTIMATED GFR IS NOT APPLICABLE FOR DIALYSIS PATIENTS. Specimen slightly [id number] 08:14:00 Test Item Value Reference Range Comments PHOSPHORUS (BEAKER) (test afkq=551) 3.8 mg/dL 2.3-4.7 [id number] 08:14:00 Test Item Value Reference Range Comments MAGNESIUM (BEAKER) (test alca=009) 2.1 mg/dL 1.6-2.6 CALCIUM, [id number] 06:56:00 Test Item Value Reference Range Comments CALCIUM IONIZED (BEAKER) (test tfob=935) 1.12 mmol/L 1.12-1.27 PH, BLOOD (BEAKER) (test imrc=8910) 7.36 CBC W/PLT COUNT & AUTO [id number] 06:38:00 Test Item Value Reference Range Comments WHITE BLOOD CELL COUNT (BEAKER) (test qwlv=765) 4.9 K/ L 3.5-10.5 RED BLOOD CELL COUNT (BEAKER) (test bmrf=855) 2.69 M/ L 4.63-6.08 HEMOGLOBIN (BEAKER) (test agod=063) 8.3 GM/DL 13.7-17.5 HEMATOCRIT (BEAKER) (test njuh=140) 24.8 % 40.1-51.0 MEAN CORPUSCULAR VOLUME (BEAKER) (test ellk=236) 92.2 fL 79.0-92.2 MEAN CORPUSCULAR HEMOGLOBIN (BEAKER) (test 30.9 pg 25.7-32.2 dafp=679) MEAN CORPUSCULAR HEMOGLOBIN CONC (BEAKER) (test 33.5 GM/DL 32.3-36.5 rkso=664) RED CELL DISTRIBUTION WIDTH (BEAKER) (test 14.8 % 11.6-14.4 lffb=251) PLATELET COUNT (BEAKER) (test vmmn=645) 65 K/CU MM 150-450 MEAN PLATELET VOLUME (BEAKER) (test jsqe=830) 9.1 fL 9.4-12.4 NUCLEATED RED BLOOD CELLS (BEAKER) (test 0 /100 WBC 0-0 thos=565) NEUTROPHILS RELATIVE PERCENT (BEAKER) (test 67 % aksm=299) LYMPHOCYTES RELATIVE PERCENT (BEAKER) (test 10 % etvi=457) MONOCYTES RELATIVE PERCENT (BEAKER) (test 17 % ukek=018) EOSINOPHILS RELATIVE PERCENT (BEAKER) (test 5 % twbk=918) BASOPHILS RELATIVE PERCENT (BEAKER) (test 0 % gpty=496) NEUTROPHILS ABSOLUTE COUNT (BEAKER) (test 3.32 K/ L 1.78-5.38 hakb=372) LYMPHOCYTES ABSOLUTE COUNT (BEAKER) (test 0.51 K/ L 1.32-3.57 amro=425) MONOCYTES ABSOLUTE COUNT (BEAKER) (test fzss=371) 0.83 K/ L 0.30-0.82 EOSINOPHILS ABSOLUTE COUNT (BEAKER) (test 0.23 K/ L 0.04-0.54 uzrq=542) BASOPHILS ABSOLUTE COUNT (BEAKER) (test rjal=077) 0.02 K/ L 0.01-0.08 IMMATURE GRANULOCYTES-RELATIVE PERCENT (BEAKER) 1 % 0-1 (test maie=3681) [id number] 06:35:00 Test Item Value Reference Range Comments PARTIAL THROMBOPLASTIN TIME (BEAKER) (test 52.6 seconds 22.5-36.0 owmq=343) PROTHROMBIN [id number] 06:34:00 Test Item Value Reference Range Comments PROTIME (BEAKER) (test zjta=567) 21.6 seconds 11.7-14.7 INR (BEAKER) (test nuro=490) 1.9 <=5.9 RECOMMENDED COUMADIN/WARFARIN INR THERAPY RANGESSTANDARD DOSE: 2.0 - 3.0 Includes: PROPHYLAXIS forvenous thrombosis, systemic embolization; TREATMENT for venous thrombosis and/or pulmonary embolus.HIGH RISK: Target INR is 2.5-3.5 for patients with mechanical heart valves.POCT-GLUCOSE [id number] 22:00:00 Test Item Value Reference Range Comments POC-GLUCOSE METER (BEAKER) 114 mg/dL 70-110 TESTED AT [address] (test htxz=6763) [place] [address] POCT-GLUCOSE [id number] 17:57:00 Test Item Value Reference Range Comments POC-GLUCOSE METER (BEAKER) 139 mg/dL 70-110 TESTED AT [address] (test hiqb=3169) [place] [address] POCT-GLUCOSE [id number] 11:57:00 Test Item Value Reference Range Comments POC-GLUCOSE METER (BEAKER) 146 mg/dL 70-110 TESTED AT [address] (test eyjq=3787) [place] [address] POCT-GLUCOSE [id number] 09:16:00 Test Item Value Reference Range Comments POC-GLUCOSE METER (BEAKER) 109 mg/dL 70-110 TESTED AT [address] (test nhfo=3693) [place] [address] COMPREHENSIVE METABOLIC [id number] 05:53:00 Test Item Value Reference Range Comments TOTAL PROTEIN (BEAKER) 5.2 gm/dL 6.0-8.3 (test czoc=613) ALBUMIN (BEAKER) (test 3.8 g/dL 3.5-5.0 zrju=0790) ALKALINE PHOSPHATASE 110 U/L 40-150 (BEAKER) (test gkeg=759) BILIRUBIN TOTAL (BEAKER) 4.5 mg/dL 0.2-1.2 (test pcvy=935) SODIUM (BEAKER) (test 124 meq/L 136-145 bkfh=378) POTASSIUM (BEAKER) (test 4.5 meq/L 3.5-5.1 fhex=850) CHLORIDE (BEAKER) (test 95 meq/L 98-107 mrrp=883) CO2 (BEAKER) (test 22 meq/L 22-29 cmdo=599) BLOOD UREA NITROGEN 30 mg/dL 7-21 (BEAKER) (test cyxc=293) CREATININE (BEAKER) (test 1.67 mg/dL 0.57-1.25 iwdk=952) GLUCOSE RANDOM (BEAKER) 99 mg/dL 70-105 (test oiic=773) CALCIUM (BEAKER) (test 9.0 mg/dL 8.4-10.2 upwd=857) AST (SGOT) (BEAKER) (test 16 U/L 5-34 fmyy=859) ALT (SGPT) (BEAKER) (test < U/L 6-55 bfru=765) EGFR (BEAKER) (test 43 mL/min/1.73 sq m ESTIMATED GFR IS NOT ywam=7839) ACCURATE CREATININE CLEARANCE IN PREDICTING GLOMERULAR FILTRATION RATE. ESTIMATED GFR IS NOT APPLICABLE FOR DIALYSIS PATIENTS. Specimen slightly [id number] 05:50:00 Test Item Value Reference Range Comments PHOSPHORUS (BEAKER) (test xpmy=702) 3.7 mg/dL 2.3-4.7 [id number] 05:50:00 Test Item Value Reference Range Comments MAGNESIUM (BEAKER) (test xfot=674) 2.1 mg/dL 1.6-2.6 CBC W/PLT COUNT & AUTO [id number] 05:28:00 Test Item Value Reference Range Comments WHITE BLOOD CELL COUNT (BEAKER) (test eddc=228) 4.0 K/ L 3.5-10.5 RED BLOOD CELL COUNT (BEAKER) (test joah=142) 2.80 M/ L 4.63-6.08 HEMOGLOBIN (BEAKER) (test epvy=492) 8.7 GM/DL 13.7-17.5 HEMATOCRIT (BEAKER) (test pkoh=902) 25.8 % 40.1-51.0 MEAN CORPUSCULAR VOLUME (BEAKER) (test cdkm=128) 92.1 fL 79.0-92.2 MEAN CORPUSCULAR HEMOGLOBIN (BEAKER) (test 31.1 pg 25.7-32.2 kksw=382) MEAN CORPUSCULAR HEMOGLOBIN CONC (BEAKER) (test 33.7 GM/DL 32.3-36.5 twfv=824) RED CELL DISTRIBUTION WIDTH (BEAKER) (test 14.7 % 11.6-14.4 qrww=010) PLATELET COUNT (BEAKER) (test wqbz=719) 42 K/CU MM 150-450 MEAN PLATELET VOLUME (BEAKER) (test ilxu=525) 9.8 fL 9.4-12.4 NUCLEATED RED BLOOD CELLS (BEAKER) (test 0 /100 WBC 0-0 jpgu=540) NEUTROPHILS RELATIVE PERCENT (BEAKER) (test 59 % pnal=549) LYMPHOCYTES RELATIVE PERCENT (BEAKER) (test 15 % srid=074) MONOCYTES RELATIVE PERCENT (BEAKER) (test 20 % mzsm=191) EOSINOPHILS RELATIVE PERCENT (BEAKER) (test 5 % inhm=600) BASOPHILS RELATIVE PERCENT (BEAKER) (test 1 % avxu=847) NEUTROPHILS ABSOLUTE COUNT (BEAKER) (test 2.37 K/ L 1.78-5.38 jgaq=326) LYMPHOCYTES ABSOLUTE COUNT (BEAKER) (test 0.58 K/ L 1.32-3.57 jhid=945) MONOCYTES ABSOLUTE COUNT (BEAKER) (test gcto=085) 0.78 K/ L 0.30-0.82 EOSINOPHILS ABSOLUTE COUNT (BEAKER) (test 0.21 K/ L 0.04-0.54 bclu=955) BASOPHILS ABSOLUTE COUNT (BEAKER) (test vqhb=002) 0.02 K/ L 0.01-0.08 IMMATURE GRANULOCYTES-RELATIVE PERCENT (BEAKER) 1 % 0-1 (test tiop=5362) PROTHROMBIN [id number] 05:26:00 Test Item Value Reference Range Comments PROTIME (BEAKER) (test sqkg=253) 23.3 seconds 11.7-14.7 INR (BEAKER) (test kdiu=135) 2.1 <=5.9 RECOMMENDED COUMADIN/WARFARIN INR THERAPY RANGESSTANDARD DOSE: 2.0 - 3.0 Includes: PROPHYLAXIS forvenous thrombosis, systemic embolization; TREATMENT for venous thrombosis and/or pulmonary embolus.HIGH RISK: Target INR is 2.5-3.5 for patients with mechanical heart valves.CALCIUM, [id number] 05:21:00 Test Item Value Reference Range Comments CALCIUM IONIZED (BEAKER) (test gtto=592) 1.11 mmol/L 1.12-1.27 PH, BLOOD (BEAKER) (test wixt=0819) 7.40 POCT-GLUCOSE [id number] 21:47:00 Test Item Value Reference Range Comments POC-GLUCOSE METER (BEAKER) 129 mg/dL 70-110 TESTED AT [address] (test rghz=6019) [facility] [address] RAD, CHEST, 1 VIEW, NON [id number] 17:18:00Reason for exam:->sobFINAL REPORT Comparison: 08/26/2018 TECHNIQUE: Single view of the chest FINDINGS: Lung volumes are low. Bibasilar densities may represent atelectasis. Otherwise lungs are clear. Cardiac silhouette is within normal limits. Soft tissues and bones are unremarkable. Signed: Rick Guerra MDReport Verified Date/Time: 09/02/2018 17:18:49 Reading Location: [facility] Mammo Reading Room CBC W/ PLT COUNT & AUTO [id number] 17:16:00 Test Item Value Reference Range Comments WHITE BLOOD CELL COUNT (BEAKER) (test ftco=143) 3.8 K/ L 3.5-10.5 RED BLOOD CELL COUNT (BEAKER) (test uyne=334) 2.37 M/ L 4.63-6.08 HEMOGLOBIN (BEAKER) (test vewz=359) 7.4 GM/DL 13.7-17.5 HEMATOCRIT (BEAKER) (test ctyo=169) 21.8 % 40.1-51.0 MEAN CORPUSCULAR VOLUME (BEAKER) (test lkdj=145) 92.0 fL 79.0-92.2 MEAN CORPUSCULAR HEMOGLOBIN (BEAKER) (test 31.2 pg 25.7-32.2 uywb=501) MEAN CORPUSCULAR HEMOGLOBIN CONC (BEAKER) (test 33.9 GM/DL 32.3-36.5 uaxl=982) RED CELL DISTRIBUTION WIDTH (BEAKER) (test 14.9 % 11.6-14.4 btub=464) PLATELET COUNT (BEAKER) (test hgla=261) 41 K/CU MM 150-450 MEAN PLATELET VOLUME (BEAKER) (test nkzi=012) 8.8 fL 9.4-12.4 NUCLEATED RED BLOOD CELLS (BEAKER) (test 0 /100 WBC 0-0 favo=291) NEUTROPHILS RELATIVE PERCENT (BEAKER) (test 62 % rqds=113) LYMPHOCYTES RELATIVE PERCENT (BEAKER) (test 14 % ileu=495) MONOCYTES RELATIVE PERCENT (BEAKER) (test 18 % gvdg=143) EOSINOPHILS RELATIVE PERCENT (BEAKER) (test 4 % uglo=978) BASOPHILS RELATIVE PERCENT (BEAKER) (test 0 % cxjo=961) NEUTROPHILS ABSOLUTE COUNT (BEAKER) (test 2.39 K/ L 1.78-5.38 vuef=700) LYMPHOCYTES ABSOLUTE COUNT (BEAKER) (test 0.55 K/ L 1.32-3.57 zhvz=699) MONOCYTES ABSOLUTE COUNT (BEAKER) (test xfrz=163) 0.69 K/ L 0.30-0.82 EOSINOPHILS ABSOLUTE COUNT (BEAKER) (test 0.17 K/ L 0.04-0.54 neqs=560) BASOPHILS ABSOLUTE COUNT (BEAKER) (test oexc=920) 0.01 K/ L 0.01-0.08 IMMATURE GRANULOCYTES-RELATIVE PERCENT (BEAKER) 1 % 0-1 (test hnbh=5441) POCT-BLOOD GASES, [id number] 16:58:00 Test Item Value Reference Range Comments TEMP, CELSIUS-POC (BEAKER) 37.0 (test omrt=9640) FIO2-POC (BEAKER) (test TESTED AT [facility] [address] [facility] nyns=6870) [facility] [address] PH, ARTERIAL-POC (BEAKER) 7.412 7.350-7.450 (test ywfh=7127) PCO2, ARTERIAL-POC (BEAKER) 35.5 mm Hg 35.0-45.0 (test busu=8080) PO2, ARTERIAL-POC (BEAKER) 69.0 mm Hg 80.0-90.0 (test mnvj=4454) SO2, ARTERIAL-POC (BEAKER) 94.0 % 96.0-97.0 (test jvxh=7681) HCO3, ARTERIAL-POC (BEAKER) 22.6 meq/L 21.0-29.0 (test yzii=6920) BASE EXCESS, ARTERIAL-POC -2.0 meq/L -2.0-3.0 (BEAKER) (test jybg=1215) [id number] 16:58:00 Test Item Value Reference Range Comments POC-SODIUM (BEAKER) (test 125 meq/L 135-148 TESTED AT [address] otxu=5578) [place] [address] [id number] 16:58:00 Test Item Value Reference Range Comments POC-POTASSIUM (BEAKER) (test 4.2 meq/L 3.6-5.5 TESTED AT [address] qodl=0439) [place] [address] [id number] 16:58:00 Test Item Value Reference Range Comments POC-GLUCOSE (BEAKER) (test 128 mg/dL 70-110 TESTED AT [address] vjct=4356) [place] [address] POCT-CALCIUM [id number] 16:58:00 Test Item Value Reference Range Comments POC-CALCIUM IONIZED (BEAKER) 1.24 mmol/L 1.12-1.27 TESTED AT [address] (test bupd=9116) [place] [address] [id number] 16:58:00 Test Item Value Reference Range Comments POC-HEMATOCRIT (BEAKER) (test 21 % 40-50 TESTED AT [address] nexx=3131) [place] [address] [id number] 16:58:00 Test Item Value Reference Range Comments POC-HEMOGLOBIN (BEAKER) 7.1 g/dL 13.0-16.8 TESTED AT [address] (test ufhm=7014) [facility] [address]GQBTVA AT [address] [address] POCT-LACTIC ACID, [id number] 16:58:00 Test Item Value Reference Range Comments POC-LACTIC ACID, ARTERIAL 1.0 mmol/L 0.4-1.3 TESTED AT [address] (BEAKER) (test xqln=3311) [facility] [address] POCT-GLUCOSE [id number] 11:43:00 Test Item Value Reference Range Comments POC-GLUCOSE METER (BEAKER) 169 mg/dL 70-110 TESTED AT [address] (test uyxc=2024) [facility] [address] POCT-GLUCOSE [id number] 08:23:00 Test Item Value Reference Range Comments POC-GLUCOSE METER (BEAKER) 128 mg/dL 70-110 TESTED AT [address] (test qujj=7843) [place] [address] [id number] 05:16:00 Test Item Value Reference Range Comments PHOSPHORUS (BEAKER) (test eaej=504) 3.8 mg/dL 2.3-4.7 [id number] 05:16:00 Test Item Value Reference Range Comments MAGNESIUM (BEAKER) (test ippd=261) 2.0 mg/dL 1.6-2.6 COMPREHENSIVE METABOLIC [id number] 05:16:00 Test Item Value Reference Range Comments TOTAL PROTEIN (BEAKER) 5.0 gm/dL 6.0-8.3 (test nxge=242) ALBUMIN (BEAKER) (test 3.5 g/dL 3.5-5.0 djxv=1668) ALKALINE PHOSPHATASE 124 U/L 40-150 (BEAKER) (test bthc=540) BILIRUBIN TOTAL (BEAKER) 2.2 mg/dL 0.2-1.2 (test yzpi=737) SODIUM (BEAKER) (test 125 meq/L 136-145 zbdd=454) POTASSIUM (BEAKER) (test 4.4 meq/L 3.5-5.1 iifw=522) CHLORIDE (BEAKER) (test 96 meq/L 98-107 rufl=247) CO2 (BEAKER) (test 23 meq/L 22-29 gaxb=691) BLOOD UREA NITROGEN 27 mg/dL 7-21 (BEAKER) (test fsmi=110) CREATININE (BEAKER) (test 1.74 mg/dL 0.57-1.25 qftt=041) GLUCOSE RANDOM (BEAKER) 112 mg/dL 70-105 (test imih=888) CALCIUM (BEAKER) (test 8.8 mg/dL 8.4-10.2 dnkw=901) AST (SGOT) (BEAKER) (test 17 U/L 5-34 ftov=748) ALT (SGPT) (BEAKER) (test 7 U/L 6-55 prwm=156) EGFR (BEAKER) (test 41 mL/min/1.73 sq m ESTIMATED GFR IS NOT ylyk=4046) ACCURATE CREATININE CLEARANCE IN PREDICTING GLOMERULAR FILTRATION RATE. ESTIMATED GFR IS NOT APPLICABLE FOR DIALYSIS PATIENTS. CALCIUM, [id number] 05:13:00 Test Item Value Reference Range Comments CALCIUM IONIZED (BEAKER) (test zjif=759) 1.10 mmol/L 1.12-1.27 PH, BLOOD (BEAKER) (test btej=2684) 7.44 CBC W/PLT COUNT & AUTO [id number] 05:02:00 Test Item Value Reference Range Comments WHITE BLOOD CELL COUNT (BEAKER) (test qpmu=021) 3.2 K/ L 3.5-10.5 RED BLOOD CELL COUNT (BEAKER) (test xdpv=294) 2.23 M/ L 4.63-6.08 HEMOGLOBIN (BEAKER) (test dizi=245) 6.9 GM/DL 13.7-17.5 HEMATOCRIT (BEAKER) (test wzfs=410) 20.8 % 40.1-51.0 MEAN CORPUSCULAR VOLUME (BEAKER) (test mlyc=852) 93.3 fL 79.0-92.2 MEAN CORPUSCULAR HEMOGLOBIN (BEAKER) (test 30.9 pg 25.7-32.2 fvbt=856) MEAN CORPUSCULAR HEMOGLOBIN CONC (BEAKER) (test 33.2 GM/DL 32.3-36.5 lfiu=503) RED CELL DISTRIBUTION WIDTH (BEAKER) (test 14.6 % 11.6-14.4 ywbj=282) PLATELET COUNT (BEAKER) (test flhs=804) 43 K/CU MM 150-450 MEAN PLATELET VOLUME (BEAKER) (test poie=224) 9.3 fL 9.4-12.4 NUCLEATED RED BLOOD CELLS (BEAKER) (test 0 /100 WBC 0-0 kpye=701) NEUTROPHILS RELATIVE PERCENT (BEAKER) (test 58 % ymqt=389) LYMPHOCYTES RELATIVE PERCENT (BEAKER) (test 17 % wpqi=290) MONOCYTES RELATIVE PERCENT (BEAKER) (test 18 % zerw=430) EOSINOPHILS RELATIVE PERCENT (BEAKER) (test 5 % yarr=182) BASOPHILS RELATIVE PERCENT (BEAKER) (test 1 % ypem=656) NEUTROPHILS ABSOLUTE COUNT (BEAKER) (test 1.84 K/ L 1.78-5.38 tozk=651) LYMPHOCYTES ABSOLUTE COUNT (BEAKER) (test 0.54 K/ L 1.32-3.57 pncs=564) MONOCYTES ABSOLUTE COUNT (BEAKER) (test kynp=125) 0.56 K/ L 0.30-0.82 EOSINOPHILS ABSOLUTE COUNT (BEAKER) (test 0.15 K/ L 0.04-0.54 kgdz=108) BASOPHILS ABSOLUTE COUNT (BEAKER) (test pwvw=173) 0.02 K/ L 0.01-0.08 IMMATURE GRANULOCYTES-RELATIVE PERCENT (BEAKER) 1 % 0-1 (test abmq=1303) PROTHROMBIN [id number] 05:00:00 Test Item Value Reference Range Comments PROTIME (BEAKER) (test mfbv=153) 22.7 seconds 11.7-14.7 INR (BEAKER) (test ercb=085) 2.0 <=5.9 RECOMMENDED COUMADIN/WARFARIN INR THERAPY RANGESSTANDARD DOSE: 2.0 - 3.0 Includes: PROPHYLAXIS forvenous thrombosis, systemic embolization; TREATMENT for venous thrombosis and/or pulmonary embolus.HIGH RISK: Target INR is 2.5-3.5 for patients with mechanical heart valves.POCT-GLUCOSE [id number] 22:18:00 Test Item Value Reference Range Comments POC-GLUCOSE METER (BEAKER) 194 mg/dL 70-110 TESTED AT [address] [address] (test wpun=2921) [facility] [address] POCT-GLUCOSE [id number] 17:33:00 Test Item Value Reference Range Comments POC-GLUCOSE METER (BEAKER) 160 mg/dL 70-110 TESTED AT [address] (test ycua=8530) [facility] [address] POCT-GLUCOSE [id number] 11:56:00 Test Item Value Reference Range Comments POC-GLUCOSE METER (BEAKER) 151 mg/dL 70-110 TESTED AT [facility] [address] [facility] (test rima=2393) [facility] [address] URINALYSIS W/ [id number] 09:52:00 Test Item Value Reference Range Comments COLOR (BEAKER) (test cjfp=176) Yellow CLARITY (BEAKER) (test phha=855) Clear SPECIFIC GRAVITY UA (BEAKER) (test 1.014 1.001-1.035 duvi=155) PH UA (BEAKER) (test ibmw=618) 5.5 5.0-8.0 PROTEIN UA (BEAKER) (test blws=741) Negative Negative GLUCOSE UA (BEAKER) (test eqnp=271) Negative Negative KETONES UA (BEAKER) (test nzqn=828) Negative Negative BILIRUBIN UA (BEAKER) (test eolw=323) Negative Negative BLOOD UA (BEAKER) (test kxrj=225) Negative Negative NITRITE UA (BEAKER) (test bzch=174) Negative Negative LEUKOCYTE ESTERASE UA (BEAKER) (test Negative Negative dgeo=626) UROBILINOGEN UA (BEAKER) (test bwud=130) 0.2 mg/dL 0.2-1.0 RBC UA (BEAKER) (test ctwo=865) 1 /HPF WBC UA (BEAKER) (test gsgj=450) 4 /HPF BACTERIA (BEAKER) (test vgfn=865) Rare MUCUS (BEAKER) (test ntir=3447) Rare HYALINE CASTS (BEAKER) (test sgta=811) 19 /LPF YEAST (BEAKER) (test oozm=0794) Rare SOURCE(BEAKER) (test vdyc=3037) Urine, Clean Catch SODIUM, RANDOM [id number] 09:09:00 Test Item Value Reference Range Comments SODIUM URINE (BEAKER) (test cjqa=833) < meq/L Reference Range: No NormalsCREATININE, RANDOM [id number] 09:04:00 Test Item Value Reference Range Comments CREATININE URINE (BEAKER) (test yrbb=158) 149.6 mg/dL Reference Range: No NormalsPOCT-GLUCOSE [id number] 08:12:00 Test Item Value Reference Range Comments POC-GLUCOSE METER (BEAKER) 106 mg/dL 70-110 TESTED AT [facility] [address] (test pgcu=6842) [place] [address] CBC W/PLT COUNT & AUTO [id number] 06:56:00 Test Item Value Reference Range Comments WHITE BLOOD CELL COUNT (BEAKER) (test wund=664) 4.5 K/ L 3.5-10.5 RED BLOOD CELL COUNT (BEAKER) (test vwhj=645) 2.22 M/ L 4.63-6.08 HEMOGLOBIN (BEAKER) (test nnsq=600) 7.0 GM/DL 13.7-17.5 HEMATOCRIT (BEAKER) (test alcu=045) 20.6 % 40.1-51.0 MEAN CORPUSCULAR VOLUME (BEAKER) (test lhaq=099) 92.8 fL 79.0-92.2 MEAN CORPUSCULAR HEMOGLOBIN (BEAKER) (test 31.5 pg 25.7-32.2 fgfx=678) MEAN CORPUSCULAR HEMOGLOBIN CONC (BEAKER) (test 34.0 GM/DL 32.3-36.5 oixp=048) RED CELL DISTRIBUTION WIDTH (BEAKER) (test 14.7 % 11.6-14.4 adef=112) PLATELET COUNT (BEAKER) (test dfjo=156) 44 K/CU MM 150-450 MEAN PLATELET VOLUME (BEAKER) (test epvu=528) 9.0 fL 9.4-12.4 NUCLEATED RED BLOOD CELLS (BEAKER) (test 0 /100 WBC 0-0 ojkh=678) NEUTROPHILS RELATIVE PERCENT (BEAKER) (test 69 % mgld=027) LYMPHOCYTES RELATIVE PERCENT (BEAKER) (test 12 % cpcv=536) MONOCYTES RELATIVE PERCENT (BEAKER) (test 14 % ifuu=269) EOSINOPHILS RELATIVE PERCENT (BEAKER) (test 4 % qdrp=345) BASOPHILS RELATIVE PERCENT (BEAKER) (test 0 % abze=140) NEUTROPHILS ABSOLUTE COUNT (BEAKER) (test 3.12 K/ L 1.78-5.38 qvyu=690) LYMPHOCYTES ABSOLUTE COUNT (BEAKER) (test 0.55 K/ L 1.32-3.57 lwiq=444) MONOCYTES ABSOLUTE COUNT (BEAKER) (test gayr=873) 0.62 K/ L 0.30-0.82 EOSINOPHILS ABSOLUTE COUNT (BEAKER) (test 0.18 K/ L 0.04-0.54 ddqh=863) BASOPHILS ABSOLUTE COUNT (BEAKER) (test gsro=620) 0.00 K/ L 0.01-0.08 IMMATURE GRANULOCYTES-RELATIVE PERCENT (BEAKER) 1 % 0-1 (test llch=4971) [id number] 06:41:00 Test Item Value Reference Range Comments PHOSPHORUS (BEAKER) (test dfks=440) 2.7 mg/dL 2.3-4.7 [id number] 06:41:00 Test Item Value Reference Range Comments MAGNESIUM (BEAKER) (test imos=907) 2.0 mg/dL 1.6-2.6 COMPREHENSIVE METABOLIC [id number] 06:41:00 Test Item Value Reference Range Comments TOTAL PROTEIN (BEAKER) 4.9 gm/dL 6.0-8.3 (test dypd=719) ALBUMIN (BEAKER) (test 3.1 g/dL 3.5-5.0 lqju=9184) ALKALINE PHOSPHATASE 148 U/L 40-150 (BEAKER) (test tevd=730) BILIRUBIN TOTAL (BEAKER) 1.9 mg/dL 0.2-1.2 (test tygj=649) SODIUM (BEAKER) (test 123 meq/L 136-145 dysi=859) POTASSIUM (BEAKER) (test 3.9 meq/L 3.5-5.1 gatd=597) CHLORIDE (BEAKER) (test 94 meq/L 98-107 eebg=439) CO2 (BEAKER) (test 22 meq/L 22-29 xwpt=174) BLOOD UREA NITROGEN 24 mg/dL 7-21 (BEAKER) (test udot=039) CREATININE (BEAKER) (test 1.55 mg/dL 0.57-1.25 cbcb=784) GLUCOSE RANDOM (BEAKER) 95 mg/dL 70-105 (test jghn=199) CALCIUM (BEAKER) (test 8.5 mg/dL 8.4-10.2 asom=071) AST (SGOT) (BEAKER) (test 18 U/L 5-34 byej=679) ALT (SGPT) (BEAKER) (test 10 U/L 6-55 miyh=009) EGFR (BEAKER) (test 47 mL/min/1.73 sq m ESTIMATED GFR IS NOT qday=9250) ACCURATE CREATININE CLEARANCE IN PREDICTING GLOMERULAR FILTRATION RATE. ESTIMATED GFR IS NOT APPLICABLE FOR DIALYSIS PATIENTS. BILIRUBIN, [id number] 06:41:00 Test Item Value Reference Range Comments BILIRUBIN DIRECT (BEAKER) (test dwtt=291) 1.3 mg/dL 0.1-0.5 PROTHROMBIN [id number] 06:26:00 Test Item Value Reference Range Comments PROTIME (BEAKER) (test apit=491) 23.3 seconds 11.7-14.7 INR (BEAKER) (test qdhg=720) 2.1 <=5.9 RECOMMENDED COUMADIN/WARFARIN INR THERAPY RANGESSTANDARD DOSE: 2.0 - 3.0 Includes: PROPHYLAXIS forvenous thrombosis, systemic embolization; TREATMENT for venous thrombosis and/or pulmonary embolus.HIGH RISK: Target INR is 2.5-3.5 for patients with mechanical heart valves.POCT-GLUCOSE [id number] 22:17:00 Test Item Value Reference Range Comments POC-GLUCOSE METER (BEAKER) 136 mg/dL 70-110 TESTED AT [address] (test psfy=7022) [place] [address] POCT-GLUCOSE [id number] 18:08:00 Test Item Value Reference Range Comments POC-GLUCOSE METER (BEAKER) 126 mg/dL 70-110 TESTED AT [address] (test iudm=1799) [place] [address] U/S, [id number] 17:47:00Reason for exam:->ascitesFINAL REPORT Indication: Ascites. Technique: Ultrasound guided paracentesis. Findings:Preliminary ultrasound confirms ascites. A safe window was identified in the left lower quadrant. The procedure was explained to the patient and informed consent was signed. The skin was markedand prepped in standard sterile fashion. Lidocaine was used for local anesthesia. A 5 [place] needle catheter system was advanced into the peritoneal space. 5500 cc slightly cloudy yellow fluid was taken off. Patient tolerated the procedure well. Impression: Ultrasound guided paracentesis. Signed: Aristeo Xiong [facility] Verified Date/Time: 08/31/2018 17:47:54 Reading Location: [address] Ultrasound Reading Room POCT-GLUCOSE [id number] 11:52:00 Test Item Value Reference Range Comments POC-GLUCOSE METER (BEAKER) 151 mg/dL 70-110 TESTED AT [place] [id number] [facility] (test ojxy=9448) [facility] [address] POCT-GLUCOSE [id number] 08:19:00 Test Item Value Reference Range Comments POC-GLUCOSE METER (BEAKER) 129 mg/dL 70-110 TESTED AT [address] (test uzax=9096) [facility] [address] [id number] 05:12:00 Test Item Value Reference Range Comments PHOSPHORUS (BEAKER) (test jwlk=737) 2.9 mg/dL 2.3-4.7 [id number] 05:12:00 Test Item Value Reference Range Comments MAGNESIUM (BEAKER) (test bswt=790) 2.0 mg/dL 1.6-2.6 COMPREHENSIVE METABOLIC [id number] 05:12:00 Test Item Value Reference Range Comments TOTAL PROTEIN (BEAKER) 5.4 gm/dL 6.0-8.3 (test ifei=266) ALBUMIN (BEAKER) (test 3.2 g/dL 3.5-5.0 lbsl=8799) ALKALINE PHOSPHATASE 159 U/L 40-150 (BEAKER) (test tkjj=830) BILIRUBIN TOTAL (BEAKER) 1.8 mg/dL 0.2-1.2 (test jvfg=408) SODIUM (BEAKER) (test 125 meq/L 136-145 tezx=424) POTASSIUM (BEAKER) (test 4.3 meq/L 3.5-5.1 zotl=429) CHLORIDE (BEAKER) (test 97 meq/L 98-107 hecp=246) CO2 (BEAKER) (test 22 meq/L 22-29 yzod=524) BLOOD UREA NITROGEN 21 mg/dL 7-21 (BEAKER) (test tnjg=235) CREATININE (BEAKER) (test 1.34 mg/dL 0.57-1.25 eaxz=556) GLUCOSE RANDOM (BEAKER) 113 mg/dL 70-105 (test lqyy=375) CALCIUM (BEAKER) (test 8.8 mg/dL 8.4-10.2 bjbt=398) AST (SGOT) (BEAKER) (test 22 U/L 5-34 tyji=058) ALT (SGPT) (BEAKER) (test 11 U/L 6-55 snqe=210) EGFR (BEAKER) (test 56 mL/min/1.73 sq m ESTIMATED GFR IS NOT pdvj=5363) ACCURATE CREATININE CLEARANCE IN PREDICTING GLOMERULAR FILTRATION RATE. ESTIMATED GFR IS NOT APPLICABLE FOR DIALYSIS PATIENTS. BILIRUBIN, [id number] 05:12:00 Test Item Value Reference Range Comments BILIRUBIN DIRECT (BEAKER) (test gbgk=968) 1.2 mg/dL 0.1-0.5 PROTHROMBIN [id number] 04:48:00 Test Item Value Reference Range Comments PROTIME (BEAKER) (test wzzu=510) 22.3 seconds 11.7-14.7 INR (BEAKER) (test oezw=433) 2.0 <=5.9 RECOMMENDED COUMADIN/WARFARIN INR THERAPY RANGESSTANDARD DOSE: 2.0 - 3.0 Includes: PROPHYLAXIS forvenous thrombosis, systemic embolization; TREATMENT for venous thrombosis and/or pulmonary embolus.HIGH RISK: Target INR is 2.5-3.5 for patients with mechanical heart valves.CBC W/PLT COUNT & AUTO [id number] 04:33:00 Test Item Value Reference Range Comments WHITE BLOOD CELL COUNT (BEAKER) (test wcii=334) 5.5 K/ L 3.5-10.5 RED BLOOD CELL COUNT (BEAKER) (test qizj=796) 2.58 M/ L 4.63-6.08 HEMOGLOBIN (BEAKER) (test xbqh=369) 7.9 GM/DL 13.7-17.5 HEMATOCRIT (BEAKER) (test skvz=592) 24.3 % 40.1-51.0 MEAN CORPUSCULAR VOLUME (BEAKER) (test pqih=891) 94.2 fL 79.0-92.2 MEAN CORPUSCULAR HEMOGLOBIN (BEAKER) (test 30.6 pg 25.7-32.2 jqyx=859) MEAN CORPUSCULAR HEMOGLOBIN CONC (BEAKER) (test 32.5 GM/DL 32.3-36.5 mkdh=729) RED CELL DISTRIBUTION WIDTH (BEAKER) (test 15.0 % 11.6-14.4 lzwi=330) PLATELET COUNT (BEAKER) (test jqpj=857) 57 K/CU MM 150-450 MEAN PLATELET VOLUME (BEAKER) (test bwvw=052) 9.2 fL 9.4-12.4 NUCLEATED RED BLOOD CELLS (BEAKER) (test 0 /100 WBC 0-0 pxzd=762) NEUTROPHILS RELATIVE PERCENT (BEAKER) (test 70 % fwre=848) LYMPHOCYTES RELATIVE PERCENT (BEAKER) (test 12 % ymsj=061) MONOCYTES RELATIVE PERCENT (BEAKER) (test 14 % wosd=431) EOSINOPHILS RELATIVE PERCENT (BEAKER) (test 4 % qoxj=304) BASOPHILS RELATIVE PERCENT (BEAKER) (test 0 % zlje=871) NEUTROPHILS ABSOLUTE COUNT (BEAKER) (test 3.85 K/ L 1.78-5.38 uqip=627) LYMPHOCYTES ABSOLUTE COUNT (BEAKER) (test 0.67 K/ L 1.32-3.57 hbbo=512) MONOCYTES ABSOLUTE COUNT (BEAKER) (test dkbw=791) 0.75 K/ L 0.30-0.82 EOSINOPHILS ABSOLUTE COUNT (BEAKER) (test 0.22 K/ L 0.04-0.54 qcsp=590) BASOPHILS ABSOLUTE COUNT (BEAKER) (test qsln=250) 0.01 K/ L 0.01-0.08 IMMATURE GRANULOCYTES-RELATIVE PERCENT (BEAKER) 1 % 0-1 (test fpwa=9091) BLOOD [id number] 23:01:00 Test Item Value Reference Range Comments CULTURE (BEAKER) (test gmeb=8773) No growth in 5 days POCT-GLUCOSE [id number] 22:15:00 Test Item Value Reference Range Comments POC-GLUCOSE METER (BEAKER) 133 mg/dL 70-110 TESTED AT [address] (test jqix=5756) [facility] [address] POCT-GLUCOSE [id number] 17:42:00 Test Item Value Reference Range Comments POC-GLUCOSE METER (BEAKER) 139 mg/dL 70-110 TESTED AT [address] (test znjk=3301) [place] [id number] POCT-GLUCOSE [id number] 12:02:00 Test Item Value Reference Range Comments POC-GLUCOSE METER (BEAKER) 152 mg/dL 70-110 TESTED AT [address] (test thsf=3571) [facility] [address] POCT-GLUCOSE [id number] 09:04:00 Test Item Value Reference Range Comments POC-GLUCOSE METER (BEAKER) 130 mg/dL 70-110 TESTED AT [facility] [address] (test hpdk=9884) [place] [address] CALCIUM, [id number] 07:27:00 Test Item Value Reference Range Comments CALCIUM IONIZED (BEAKER) (test fyhd=440) 1.10 mmol/L 1.12-1.27 PH, BLOOD (BEAKER) (test vizd=6025) 7.42 [id number] 06:46:00 Test Item Value Reference Range Comments PHOSPHORUS (BEAKER) (test katj=927) 3.0 mg/dL 2.3-4.7 [id number] 06:46:00 Test Item Value Reference Range Comments MAGNESIUM (BEAKER) (test lnaa=682) 2.0 mg/dL 1.6-2.6 COMPREHENSIVE METABOLIC [id number] 06:46:00 Test Item Value Reference Range Comments TOTAL PROTEIN (BEAKER) 4.9 gm/dL 6.0-8.3 (test qfky=729) ALBUMIN (BEAKER) (test 3.0 g/dL 3.5-5.0 gvrt=7766) ALKALINE PHOSPHATASE 145 U/L 40-150 (BEAKER) (test gldm=270) BILIRUBIN TOTAL (BEAKER) 1.9 mg/dL 0.2-1.2 (test coic=294) SODIUM (BEAKER) (test 127 meq/L 136-145 giss=074) POTASSIUM (BEAKER) (test 3.7 meq/L 3.5-5.1 qxyw=644) CHLORIDE (BEAKER) (test 99 meq/L 98-107 vbut=083) CO2 (BEAKER) (test 21 meq/L 22-29 jlcq=965) BLOOD UREA NITROGEN 20 mg/dL 7-21 (BEAKER) (test tewb=303) CREATININE (BEAKER) (test 1.21 mg/dL 0.57-1.25 qgfr=660) GLUCOSE RANDOM (BEAKER) 108 mg/dL 70-105 (test andz=415) CALCIUM (BEAKER) (test 8.9 mg/dL 8.4-10.2 sdau=157) AST (SGOT) (BEAKER) (test 22 U/L 5-34 pisp=311) ALT (SGPT) (BEAKER) (test 9 U/L 6-55 noqw=586) EGFR (BEAKER) (test 63 mL/min/1.73 sq m ESTIMATED GFR IS NOT goof=4949) ACCURATE CREATININE CLEARANCE IN PREDICTING GLOMERULAR FILTRATION RATE. ESTIMATED GFR IS NOT APPLICABLE FOR DIALYSIS PATIENTS. BASIC METABOLIC [id number] 06:46:00 Test Item Value Reference Range Comments SODIUM (BEAKER) (test 127 meq/L 136-145 kept=136) POTASSIUM (BEAKER) (test 3.7 meq/L 3.5-5.1 rned=823) CHLORIDE (BEAKER) (test 99 meq/L 98-107 fsbl=181) CO2 (BEAKER) (test 21 meq/L 22-29 rtdk=779) BLOOD UREA NITROGEN 20 mg/dL 7-21 (BEAKER) (test ghha=761) CREATININE (BEAKER) (test 1.21 mg/dL 0.57-1.25 hudt=291) GLUCOSE RANDOM (BEAKER) 108 mg/dL 70-105 (test fhyi=539) CALCIUM (BEAKER) (test 8.9 mg/dL 8.4-10.2 liql=207) EGFR (BEAKER) (test 63 mL/min/1.73 sq m ESTIMATED GFR IS NOT yfpr=9714) ACCURATE CREATININE CLEARANCE IN PREDICTING GLOMERULAR FILTRATION RATE. ESTIMATED GFR IS NOT APPLICABLE FOR DIALYSIS PATIENTS. BILIRUBIN, [id number] 06:46:00 Test Item Value Reference Range Comments BILIRUBIN DIRECT (BEAKER) (test pnpw=479) 1.2 mg/dL 0.1-0.5 CBC W/PLT COUNT & AUTO [id number] 06:30:00 Test Item Value Reference Range Comments WHITE BLOOD CELL COUNT (BEAKER) (test rshy=418) 3.7 K/ L 3.5-10.5 RED BLOOD CELL COUNT (BEAKER) (test gnkj=017) 2.35 M/ L 4.63-6.08 HEMOGLOBIN (BEAKER) (test hyqp=866) 7.4 GM/DL 13.7-17.5 HEMATOCRIT (BEAKER) (test nqva=432) 22.1 % 40.1-51.0 MEAN CORPUSCULAR VOLUME (BEAKER) (test cmjn=284) 94.0 fL 79.0-92.2 MEAN CORPUSCULAR HEMOGLOBIN (BEAKER) (test 31.5 pg 25.7-32.2 jeqo=855) MEAN CORPUSCULAR HEMOGLOBIN CONC (BEAKER) (test 33.5 GM/DL 32.3-36.5 hxtn=165) RED CELL DISTRIBUTION WIDTH (BEAKER) (test 14.8 % 11.6-14.4 urjr=883) PLATELET COUNT (BEAKER) (test rxna=550) 45 K/CU MM 150-450 MEAN PLATELET VOLUME (BEAKER) (test rqut=679) 8.8 fL 9.4-12.4 NUCLEATED RED BLOOD CELLS (BEAKER) (test 0 /100 WBC 0-0 kyln=180) NEUTROPHILS RELATIVE PERCENT (BEAKER) (test 61 % ogno=087) LYMPHOCYTES RELATIVE PERCENT (BEAKER) (test 14 % kois=758) MONOCYTES RELATIVE PERCENT (BEAKER) (test 18 % tyyj=432) EOSINOPHILS RELATIVE PERCENT (BEAKER) (test 6 % ktsv=068) BASOPHILS RELATIVE PERCENT (BEAKER) (test 0 % gxwz=885) NEUTROPHILS ABSOLUTE COUNT (BEAKER) (test 2.25 K/ L 1.78-5.38 pufd=483) LYMPHOCYTES ABSOLUTE COUNT (BEAKER) (test 0.53 K/ L 1.32-3.57 ewsn=229) MONOCYTES ABSOLUTE COUNT (BEAKER) (test mljk=074) 0.67 K/ L 0.30-0.82 EOSINOPHILS ABSOLUTE COUNT (BEAKER) (test 0.23 K/ L 0.04-0.54 prgw=927) BASOPHILS ABSOLUTE COUNT (BEAKER) (test uikx=877) 0.01 K/ L 0.01-0.08 IMMATURE GRANULOCYTES-RELATIVE PERCENT (BEAKER) 1 % 0-1 (test kcqp=5619) PROTHROMBIN [id number] 06:07:00 Test Item Value Reference Range Comments PROTIME (BEAKER) (test lrxq=373) 21.4 seconds 11.7-14.7 INR (BEAKER) (test vzuv=833) 1.9 <=5.9 RECOMMENDED COUMADIN/WARFARIN INR THERAPY RANGESSTANDARD DOSE: 2.0 - 3.0 Includes: PROPHYLAXIS forvenous thrombosis, systemic embolization; TREATMENT for venous thrombosis and/or pulmonary embolus.HIGH RISK: Target INR is 2.5-3.5 for patients with mechanical heart valves.POCT-GLUCOSE [id number] 23:37:00 Test Item Value Reference Range Comments POC-GLUCOSE METER (BEAKER) 154 mg/dL 70-110 TESTED AT [address] (test nrqa=1825) [place] [address] BASIC METABOLIC [id number] 20:17:00 Test Item Value Reference Range Comments SODIUM (BEAKER) (test 125 meq/L 136-145 qyux=314) POTASSIUM (BEAKER) (test 4.0 meq/L 3.5-5.1 crpi=736) CHLORIDE (BEAKER) (test 94 meq/L 98-107 gcgh=630) CO2 (BEAKER) (test 25 meq/L 22-29 auie=830) BLOOD UREA NITROGEN 20 mg/dL 7-21 (BEAKER) (test wpxl=312) CREATININE (BEAKER) (test 1.34 mg/dL 0.57-1.25 svgr=929) GLUCOSE RANDOM (BEAKER) 115 mg/dL 70-105 (test mpeq=649) CALCIUM (BEAKER) (test 8.9 mg/dL 8.4-10.2 fkhi=161) EGFR (BEAKER) (test 56 mL/min/1.73 sq m ESTIMATED GFR IS NOT uqos=2043) ACCURATE CREATININE CLEARANCE IN PREDICTING GLOMERULAR FILTRATION RATE. ESTIMATED GFR IS NOT APPLICABLE FOR DIALYSIS PATIENTS. POCT-GLUCOSE [id number] 17:59:00 Test Item Value Reference Range Comments POC-GLUCOSE METER (BEAKER) 161 mg/dL 70-110 TESTED AT [address] (test dynp=8734) [place] [address] BODY FLUID CULTURE + GRAM [id number] 13:31:00 Test Item Value Reference Range Comments CULTURE (BEAKER) (test hnwt=4355) No growth GRAM STAIN RESULT (BEAKER) (test No organisms seen tchp=0566) GRAM STAIN RESULT (BEAKER) (test No White blood cells seen hdex=70331) POCT-GLUCOSE [id number] 12:31:00 Test Item Value Reference Range Comments POC-GLUCOSE METER (BEAKER) 114 mg/dL 70-110 TESTED AT [address] (test nazf=6786) [place] [address] BASIC METABOLIC [id number] 11:33:00 Test Item Value Reference Range Comments SODIUM (BEAKER) (test 124 meq/L 136-145 zzct=883) POTASSIUM (BEAKER) (test 4.1 meq/L 3.5-5.1 bign=332) CHLORIDE (BEAKER) (test 94 meq/L 98-107 wddk=325) CO2 (BEAKER) (test 23 meq/L 22-29 sudg=790) BLOOD UREA NITROGEN 20 mg/dL 7-21 (BEAKER) (test eatm=223) CREATININE (BEAKER) (test 1.22 mg/dL 0.57-1.25 euax=299) GLUCOSE RANDOM (BEAKER) 94 mg/dL 70-105 (test brdu=593) CALCIUM (BEAKER) (test 8.8 mg/dL 8.4-10.2 leqp=180) EGFR (BEAKER) (test 62 mL/min/1.73 sq m ESTIMATED GFR IS NOT eqoi=2134) ACCURATE CREATININE CLEARANCE IN PREDICTING GLOMERULAR FILTRATION RATE. ESTIMATED GFR IS NOT APPLICABLE FOR DIALYSIS PATIENTS. [id number] 09:24:00 Test Item Value Reference Range Comments FERRITIN (BEAKER) (test fnlc=508) 1685 ng/mL 5-275 POCT-GLUCOSE [id number] 07:59:00 Test Item Value Reference Range Comments POC-GLUCOSE METER (BEAKER) 225 mg/dL 70-110 TESTED AT [facility] [address] [facility] (test jjgz=5452) [facility] [address] IRON, TIBC, % SAT. (WITHOUT FERRITIN)[id number] 07:54:00 Test Item Value Reference Range Comments IRON (BEAKER) (test dytl=162) 98 ug/dL 40-160 TOTAL IRON BINDING CAPACITY (BEAKER) (test 90 ug/dL 250-450 gjry=377) IRON % SATURATION (2) (BEAKER) (test lczq=9591) 109 % 20-55 CALCIUM, [id number] 07:13:00 Test Item Value Reference Range Comments CALCIUM IONIZED (BEAKER) (test yacf=546) 1.10 mmol/L 1.12-1.27 PH, BLOOD (BEAKER) (test tfyq=9739) 7.37 [id number] 06:32:00 Test Item Value Reference Range Comments PHOSPHORUS (BEAKER) (test mrzz=795) 2.6 mg/dL 2.3-4.7 [id number] 06:32:00 Test Item Value Reference Range Comments MAGNESIUM (BEAKER) (test jdcy=528) 1.8 mg/dL 1.6-2.6 COMPREHENSIVE METABOLIC [id number] 06:32:00 Test Item Value Reference Range Comments TOTAL PROTEIN (BEAKER) 5.0 gm/dL 6.0-8.3 (test gvea=356) ALBUMIN (BEAKER) (test 3.2 g/dL 3.5-5.0 xzdv=5371) ALKALINE PHOSPHATASE 138 U/L 40-150 (BEAKER) (test cydy=133) BILIRUBIN TOTAL (BEAKER) 2.1 mg/dL 0.2-1.2 (test krkw=363) SODIUM (BEAKER) (test 126 meq/L 136-145 hhes=370) POTASSIUM (BEAKER) (test 4.0 meq/L 3.5-5.1 imyj=216) CHLORIDE (BEAKER) (test 95 meq/L 98-107 dvgk=229) CO2 (BEAKER) (test 23 meq/L 22-29 afiu=407) BLOOD UREA NITROGEN 21 mg/dL 7-21 (BEAKER) (test iilx=148) CREATININE (BEAKER) (test 1.15 mg/dL 0.57-1.25 ytzk=952) GLUCOSE RANDOM (BEAKER) 110 mg/dL 70-105 (test tcvn=128) CALCIUM (BEAKER) (test 8.8 mg/dL 8.4-10.2 qeyc=353) AST (SGOT) (BEAKER) (test 22 U/L 5-34 puwg=660) ALT (SGPT) (BEAKER) (test 11 U/L 6-55 pssf=744) EGFR (BEAKER) (test 67 mL/min/1.73 sq m ESTIMATED GFR IS NOT lvxt=7201) ACCURATE CREATININE CLEARANCE IN PREDICTING GLOMERULAR FILTRATION RATE. ESTIMATED GFR IS NOT APPLICABLE FOR DIALYSIS PATIENTS. BASIC METABOLIC [id number] 06:32:00 Test Item Value Reference Range Comments SODIUM (BEAKER) (test 126 meq/L 136-145 niws=277) POTASSIUM (BEAKER) (test 4.0 meq/L 3.5-5.1 qmyw=426) CHLORIDE (BEAKER) (test 95 meq/L 98-107 qgzl=082) CO2 (BEAKER) (test 23 meq/L 22-29 bxgr=167) BLOOD UREA NITROGEN 21 mg/dL 7-21 (BEAKER) (test orjz=647) CREATININE (BEAKER) (test 1.15 mg/dL 0.57-1.25 gcqw=365) GLUCOSE RANDOM (BEAKER) 110 mg/dL 70-105 (test gccf=707) CALCIUM (BEAKER) (test 8.8 mg/dL 8.4-10.2 fyeq=792) EGFR (BEAKER) (test 67 mL/min/1.73 sq m ESTIMATED GFR IS NOT cltf=5864) ACCURATE CREATININE CLEARANCE IN PREDICTING GLOMERULAR FILTRATION RATE. ESTIMATED GFR IS NOT APPLICABLE FOR DIALYSIS PATIENTS. BILIRUBIN, [id number] 06:32:00 Test Item Value Reference Range Comments BILIRUBIN DIRECT (BEAKER) (test cvle=099) 1.4 mg/dL 0.1-0.5 PROTHROMBIN [id number] 05:44:00 Test Item Value Reference Range Comments PROTIME (BEAKER) (test ubxj=028) 20.9 seconds 11.7-14.7 INR (BEAKER) (test bvat=097) 1.8 <=5.9 RECOMMENDED COUMADIN/WARFARIN INR THERAPY RANGESSTANDARD DOSE: 2.0 - 3.0 Includes: PROPHYLAXIS forvenous thrombosis, systemic embolization; TREATMENT for venous thrombosis and/or pulmonary embolus.HIGH RISK: Target INR is 2.5-3.5 for patients with mechanical heart valves.CBC W/PLT COUNT & AUTO [id number] 05:43:00 Test Item Value Reference Range Comments WHITE BLOOD CELL COUNT (BEAKER) (test ikxk=217) 4.0 K/ L 3.5-10.5 RED BLOOD CELL COUNT (BEAKER) (test thmj=272) 2.30 M/ L 4.63-6.08 HEMOGLOBIN (BEAKER) (test zwdd=712) 7.5 GM/DL 13.7-17.5 HEMATOCRIT (BEAKER) (test zvbf=591) 22.0 % 40.1-51.0 MEAN CORPUSCULAR VOLUME (BEAKER) (test aqdo=831) 95.7 fL 79.0-92.2 MEAN CORPUSCULAR HEMOGLOBIN (BEAKER) (test 32.6 pg 25.7-32.2 hmie=034) MEAN CORPUSCULAR HEMOGLOBIN CONC (BEAKER) (test 34.1 GM/DL 32.3-36.5 nkdv=333) RED CELL DISTRIBUTION WIDTH (BEAKER) (test 14.8 % 11.6-14.4 nbkv=069) PLATELET COUNT (BEAKER) (test vtov=156) 51 K/CU MM 150-450 MEAN PLATELET VOLUME (BEAKER) (test jdbv=314) 8.8 fL 9.4-12.4 NUCLEATED RED BLOOD CELLS (BEAKER) (test 0 /100 WBC 0-0 tzpl=316) NEUTROPHILS RELATIVE PERCENT (BEAKER) (test 61 % yigh=635) LYMPHOCYTES RELATIVE PERCENT (BEAKER) (test 12 % imtd=226) MONOCYTES RELATIVE PERCENT (BEAKER) (test 19 % kqgd=433) EOSINOPHILS RELATIVE PERCENT (BEAKER) (test 7 % xndi=966) BASOPHILS RELATIVE PERCENT (BEAKER) (test 0 % hqoe=684) NEUTROPHILS ABSOLUTE COUNT (BEAKER) (test 2.43 K/ L 1.78-5.38 qmku=435) LYMPHOCYTES ABSOLUTE COUNT (BEAKER) (test 0.49 K/ L 1.32-3.57 zext=661) MONOCYTES ABSOLUTE COUNT (BEAKER) (test sndm=191) 0.75 K/ L 0.30-0.82 EOSINOPHILS ABSOLUTE COUNT (BEAKER) (test 0.29 K/ L 0.04-0.54 jvax=665) BASOPHILS ABSOLUTE COUNT (BEAKER) (test hdqs=843) 0.00 K/ L 0.01-0.08 IMMATURE GRANULOCYTES-RELATIVE PERCENT (BEAKER) 1 % 0-1 (test bnpk=1429) POCT-GLUCOSE [id number] 22:23:00 Test Item Value Reference Range Comments POC-GLUCOSE METER (BEAKER) 166 mg/dL 70-110 TESTED AT [address] (test dfor=2144) [facility] [id number] POCT-GLUCOSE [id number] 16:12:00 Test Item Value Reference Range Comments POC-GLUCOSE METER (BEAKER) 110 mg/dL 70-110 TESTED AT [address] (test xmrx=5897) [facility] [id number] PTH, [id number] 15:57:00 Test Item Value Reference Range Comments PARATHYROID HORMONE INTACT (BEAKER) (test 26.2 pg/mL 8.5-72.5 juzc=550) GAMMA GLUTAMYL TRANSFERASE (GGT)2018-08-28 15:51:00 Test Item Value Reference Range Comments GAMMA GLUTAMYL TRANSFERASE (BEAKER) (test gdcf=764) 11 U/L 9-64 BASIC METABOLIC [id number] 15:49:00 Test Item Value Reference Range Comments SODIUM (BEAKER) (test 127 meq/L 136-145 uqsf=384) POTASSIUM (BEAKER) (test 3.6 meq/L 3.5-5.1 srmp=079) CHLORIDE (BEAKER) (test 97 meq/L 98-107 vdil=874) CO2 (BEAKER) (test 23 meq/L 22-29 bcab=217) BLOOD UREA NITROGEN 20 mg/dL 7-21 (BEAKER) (test ccmv=727) CREATININE (BEAKER) (test 1.19 mg/dL 0.57-1.25 ublo=615) GLUCOSE RANDOM (BEAKER) 123 mg/dL 70-105 (test ogzr=997) CALCIUM (BEAKER) (test 8.6 mg/dL 8.4-10.2 vxjf=314) EGFR (BEAKER) (test 64 mL/min/1.73 sq m ESTIMATED GFR IS NOT qrie=3183) ACCURATE CREATININE CLEARANCE IN PREDICTING GLOMERULAR FILTRATION RATE. ESTIMATED GFR IS NOT APPLICABLE FOR DIALYSIS PATIENTS. VITAMIN D, [id number] 15:24:00 Test Item Value Reference Range Comments VITAMIN D 25-OH (BEAKER) (test mgmw=6270) 11.2 ng/mL 6.6-49.9 Effective 08/06/2017: Reference Range ChangeNew: 6.6-49.9 ng/mL Previous: 13.0 -47.8 ng/mLRecommended Vitamin D Target Range: 30.0-40.0 ng/mLPOCT-GLUCOSE [id number] 12:35:00 Test Item Value Reference Range Comments POC-GLUCOSE METER (BEAKER) 138 mg/dL 70-110 TESTED AT [facility] [address] [facility] (test ywxb=7291) [facility] [address] BASIC METABOLIC [id number] 09:59:00 Test Item Value Reference Range Comments SODIUM (BEAKER) (test 130 meq/L 136-145 jvfg=252) POTASSIUM (BEAKER) (test 4.1 meq/L 3.5-5.1 ceat=243) CHLORIDE (BEAKER) (test 99 meq/L 98-107 ejan=966) CO2 (BEAKER) (test 24 meq/L 22-29 jkwr=884) BLOOD UREA NITROGEN 22 mg/dL 7-21 (BEAKER) (test peje=212) CREATININE (BEAKER) (test 1.31 mg/dL 0.57-1.25 jjqi=836) GLUCOSE RANDOM (BEAKER) 121 mg/dL 70-105 (test kqmg=179) CALCIUM (BEAKER) (test 9.4 mg/dL 8.4-10.2 jkwh=031) EGFR (BEAKER) (test 57 mL/min/1.73 sq m ESTIMATED GFR IS NOT nufq=6685) ACCURATE CREATININE CLEARANCE IN PREDICTING GLOMERULAR FILTRATION RATE. ESTIMATED GFR IS NOT APPLICABLE FOR DIALYSIS PATIENTS. POCT-GLUCOSE [id number] 08:17:00 Test Item Value Reference Range Comments POC-GLUCOSE METER (BEAKER) 131 mg/dL 70-110 TESTED AT [address] (test dgsj=8482) [facility] [address] CALCIUM, [id number] 06:01:00 Test Item Value Reference Range Comments CALCIUM IONIZED (BEAKER) (test bvci=900) 1.06 mmol/L 1.12-1.27 PH, BLOOD (BEAKER) (test pqij=3644) 7.42 [id number] 05:52:00 Test Item Value Reference Range Comments PHOSPHORUS (BEAKER) (test ojrs=345) 3.1 mg/dL 2.3-4.7 [id number] 05:52:00 Test Item Value Reference Range Comments MAGNESIUM (BEAKER) (test vspk=007) 2.3 mg/dL 1.6-2.6 BASIC METABOLIC [id number] 05:52:00 Test Item Value Reference Range Comments SODIUM (BEAKER) (test 130 meq/L 136-145 ejgb=780) POTASSIUM (BEAKER) (test 3.8 meq/L 3.5-5.1 dgus=409) CHLORIDE (BEAKER) (test 98 meq/L 98-107 ptnz=321) CO2 (BEAKER) (test 22 meq/L 22-29 zkco=021) BLOOD UREA NITROGEN 22 mg/dL 7-21 (BEAKER) (test zdno=382) CREATININE (BEAKER) (test 1.37 mg/dL 0.57-1.25 xcrv=658) GLUCOSE RANDOM (BEAKER) 118 mg/dL 70-105 (test egcd=155) CALCIUM (BEAKER) (test 9.6 mg/dL 8.4-10.2 qrhg=717) EGFR (BEAKER) (test 54 mL/min/1.73 sq m ESTIMATED GFR IS NOT kidm=5640) ACCURATE CREATININE CLEARANCE IN PREDICTING GLOMERULAR FILTRATION RATE. ESTIMATED GFR IS NOT APPLICABLE FOR DIALYSIS PATIENTS. Specimen slightly ictericCOMPREHENSIVE METABOLIC [id number] 05:52:00 Test Item Value Reference Range Comments TOTAL PROTEIN (BEAKER) 5.6 gm/dL 6.0-8.3 (test ibcb=403) ALBUMIN (BEAKER) (test 3.6 g/dL 3.5-5.0 raeo=6386) ALKALINE PHOSPHATASE 146 U/L 40-150 (BEAKER) (test xqqn=712) BILIRUBIN TOTAL (BEAKER) 2.5 mg/dL 0.2-1.2 (test fywg=940) SODIUM (BEAKER) (test 130 meq/L 136-145 nqwa=544) POTASSIUM (BEAKER) (test 3.8 meq/L 3.5-5.1 wnxv=442) CHLORIDE (BEAKER) (test 98 meq/L 98-107 ibnn=842) CO2 (BEAKER) (test 22 meq/L 22-29 ngpz=657) BLOOD UREA NITROGEN 22 mg/dL 7-21 (BEAKER) (test jgdl=099) CREATININE (BEAKER) (test 1.37 mg/dL 0.57-1.25 rwbz=699) GLUCOSE RANDOM (BEAKER) 118 mg/dL 70-105 (test qnwy=650) CALCIUM (BEAKER) (test 9.6 mg/dL 8.4-10.2 viqa=764) AST (SGOT) (BEAKER) (test 25 U/L 5-34 qvas=687) ALT (SGPT) (BEAKER) (test 10 U/L 6-55 bsnb=726) EGFR (BEAKER) (test 54 mL/min/1.73 sq m ESTIMATED GFR IS NOT mxkl=4968) ACCURATE CREATININE CLEARANCE IN PREDICTING GLOMERULAR FILTRATION RATE. ESTIMATED GFR IS NOT APPLICABLE FOR DIALYSIS PATIENTS. Specimen slightly ictericBILIRUBIN, [id number] 05:52:00 Test Item Value Reference Range Comments BILIRUBIN DIRECT (BEAKER) (test evtk=834) 1.6 mg/dL 0.1-0.5 PROTHROMBIN [id number] 05:41:00 Test Item Value Reference Range Comments PROTIME (BEAKER) (test ihye=001) 21.3 seconds 11.7-14.7 INR (BEAKER) (test vkbf=280) 1.8 <=5.9 RECOMMENDED COUMADIN/WARFARIN INR THERAPY RANGESSTANDARD DOSE: 2.0 - 3.0 Includes: PROPHYLAXIS forvenous thrombosis, systemic embolization; TREATMENT for venous thrombosis and/or pulmonary embolus.HIGH RISK: Target INR is 2.5-3.5 for patients with mechanical heart valves.CBC W/PLT COUNT & AUTO [id number] 05:32:00 Test Item Value Reference Range Comments WHITE BLOOD CELL COUNT (BEAKER) (test fbaq=080) 5.0 K/ L 3.5-10.5 RED BLOOD CELL COUNT (BEAKER) (test ftzy=738) 2.53 M/ L 4.63-6.08 HEMOGLOBIN (BEAKER) (test dbab=315) 8.1 GM/DL 13.7-17.5 HEMATOCRIT (BEAKER) (test pbja=091) 23.6 % 40.1-51.0 MEAN CORPUSCULAR VOLUME (BEAKER) (test awev=732) 93.3 fL 79.0-92.2 MEAN CORPUSCULAR HEMOGLOBIN (BEAKER) (test 32.0 pg 25.7-32.2 bttx=446) MEAN CORPUSCULAR HEMOGLOBIN CONC (BEAKER) (test 34.3 GM/DL 32.3-36.5 dpab=150) RED CELL DISTRIBUTION WIDTH (BEAKER) (test 14.6 % 11.6-14.4 eqdi=841) PLATELET COUNT (BEAKER) (test cqnz=878) 73 K/CU MM 150-450 MEAN PLATELET VOLUME (BEAKER) (test kvzt=812) 8.8 fL 9.4-12.4 NUCLEATED RED BLOOD CELLS (BEAKER) (test 0 /100 WBC 0-0 nbsv=141) NEUTROPHILS RELATIVE PERCENT (BEAKER) (test 71 % sufh=575) LYMPHOCYTES RELATIVE PERCENT (BEAKER) (test 10 % reko=232) MONOCYTES RELATIVE PERCENT (BEAKER) (test 16 % rwrn=202) EOSINOPHILS RELATIVE PERCENT (BEAKER) (test 3 % qayf=300) BASOPHILS RELATIVE PERCENT (BEAKER) (test 0 % glji=716) NEUTROPHILS ABSOLUTE COUNT (BEAKER) (test 3.56 K/ L 1.78-5.38 gxyd=892) LYMPHOCYTES ABSOLUTE COUNT (BEAKER) (test 0.48 K/ L 1.32-3.57 kqam=047) MONOCYTES ABSOLUTE COUNT (BEAKER) (test bdxj=900) 0.80 K/ L 0.30-0.82 EOSINOPHILS ABSOLUTE COUNT (BEAKER) (test 0.13 K/ L 0.04-0.54 nasu=950) BASOPHILS ABSOLUTE COUNT (BEAKER) (test nlgw=652) 0.01 K/ L 0.01-0.08 IMMATURE GRANULOCYTES-RELATIVE PERCENT (BEAKER) 1 % 0-1 (test xauw=6283) POCT-GLUCOSE [id number] 21:24:00 Test Item Value Reference Range Comments POC-GLUCOSE METER (BEAKER) 137 mg/dL 70-110 TESTED AT [address] (test jrej=5281) [place] [address] POCT-GLUCOSE [id number] 17:52:00 Test Item Value Reference Range Comments POC-GLUCOSE METER (BEAKER) 166 mg/dL 70-110 TESTED AT [address] (test yqjg=6177) [place] [id number] BASIC METABOLIC [id number] 17:48:00 Test Item Value Reference Range Comments SODIUM (BEAKER) (test 128 meq/L 136-145 mcex=939) POTASSIUM (BEAKER) (test 4.0 meq/L 3.5-5.1 byjw=330) CHLORIDE (BEAKER) (test 97 meq/L 98-107 cbtz=709) CO2 (BEAKER) (test 23 meq/L 22-29 rquu=115) BLOOD UREA NITROGEN 24 mg/dL 7-21 (BEAKER) (test hjys=694) CREATININE (BEAKER) (test 1.25 mg/dL 0.57-1.25 hkil=455) GLUCOSE RANDOM (BEAKER) 123 mg/dL 70-105 (test uiaw=318) CALCIUM (BEAKER) (test 8.9 mg/dL 8.4-10.2 paen=849) EGFR (BEAKER) (test 60 mL/min/1.73 sq m ESTIMATED GFR IS NOT dbsr=6344) ACCURATE CREATININE CLEARANCE IN PREDICTING GLOMERULAR FILTRATION RATE. ESTIMATED GFR IS NOT APPLICABLE FOR DIALYSIS PATIENTS. POCT-GLUCOSE [id number] 12:18:00 Test Item Value Reference Range Comments POC-GLUCOSE METER (BEAKER) 152 mg/dL 70-110 TESTED AT [address] (test rvzj=7928) [place] [address] POCT-GLUCOSE [id number] 09:31:00 Test Item Value Reference Range Comments POC-GLUCOSE METER (BEAKER) 142 mg/dL 70-110 TESTED AT [address] (test ukft=5197) [place] [address] BASIC METABOLIC [id number] 09:03:00 Test Item Value Reference Range Comments SODIUM (BEAKER) (test 125 meq/L 136-145 pqtb=269) POTASSIUM (BEAKER) (test 5.1 meq/L 3.5-5.1 Specimen slightly dujt=388) hemolyzed CHLORIDE (BEAKER) (test 95 meq/L 98-107 ulkh=629) CO2 (BEAKER) (test 23 meq/L 22-29 cldy=346) BLOOD UREA NITROGEN 26 mg/dL 7-21 (BEAKER) (test abzx=680) CREATININE (BEAKER) (test 1.25 mg/dL 0.57-1.25 Specimen slightly lywo=236) hemolyzed GLUCOSE RANDOM (BEAKER) 99 mg/dL 70-105 (test phov=655) CALCIUM (BEAKER) (test 9.0 mg/dL 8.4-10.2 vnej=059) EGFR (BEAKER) (test 60 mL/min/1.73 sq m ESTIMATED GFR IS NOT tnnt=4320) ACCURATE CREATININE CLEARANCE IN PREDICTING GLOMERULAR FILTRATION RATE. ESTIMATED GFR IS NOT APPLICABLE FOR DIALYSIS PATIENTS. POCT-GLUCOSE [id number] 08:38:00 Test Item Value Reference Range Comments POC-GLUCOSE METER (BEAKER) 171 mg/dL 70-110 TESTED AT [address] (test zdgj=2442) [place] [address] [id number] 05:30:00 Test Item Value Reference Range Comments PHOSPHORUS (BEAKER) (test ocky=895) 2.9 mg/dL 2.3-4.7 [id number] 05:30:00 Test Item Value Reference Range Comments MAGNESIUM (BEAKER) (test xack=470) 2.2 mg/dL 1.6-2.6 COMPREHENSIVE METABOLIC [id number] 05:30:00 Test Item Value Reference Range Comments TOTAL PROTEIN (BEAKER) 5.2 gm/dL 6.0-8.3 (test pvwo=799) ALBUMIN (BEAKER) (test 3.4 g/dL 3.5-5.0 eypw=3302) ALKALINE PHOSPHATASE 134 U/L 40-150 (BEAKER) (test spek=175) BILIRUBIN TOTAL (BEAKER) 2.3 mg/dL 0.2-1.2 (test yhbl=701) SODIUM (BEAKER) (test 124 meq/L 136-145 vxzn=903) POTASSIUM (BEAKER) (test 4.9 meq/L 3.5-5.1 lwta=383) CHLORIDE (BEAKER) (test 94 meq/L 98-107 bixx=166) CO2 (BEAKER) (test 24 meq/L 22-29 klsj=273) BLOOD UREA NITROGEN 27 mg/dL 7-21 (BEAKER) (test hdhg=089) CREATININE (BEAKER) (test 1.27 mg/dL 0.57-1.25 okoy=859) GLUCOSE RANDOM (BEAKER) 122 mg/dL 70-105 (test dlzu=206) CALCIUM (BEAKER) (test 9.2 mg/dL 8.4-10.2 fyjz=766) AST (SGOT) (BEAKER) (test 24 U/L 5-34 hkqv=173) ALT (SGPT) (BEAKER) (test 10 U/L 6-55 lsng=715) EGFR (BEAKER) (test 59 mL/min/1.73 sq m ESTIMATED GFR IS NOT klki=4210) ACCURATE CREATININE CLEARANCE IN PREDICTING GLOMERULAR FILTRATION RATE. ESTIMATED GFR IS NOT APPLICABLE FOR DIALYSIS PATIENTS. BILIRUBIN, [id number] 05:30:00 Test Item Value Reference Range Comments BILIRUBIN DIRECT (BEAKER) (test yagy=125) 1.5 mg/dL 0.1-0.5 PROTHROMBIN [id number] 05:09:00 Test Item Value Reference Range Comments PROTIME (BEAKER) (test skpd=796) 22.3 seconds 11.7-14.7 INR (BEAKER) (test vqac=664) 2.0 <=5.9 RECOMMENDED COUMADIN/WARFARIN INR THERAPY RANGESSTANDARD DOSE: 2.0 - 3.0 Includes: PROPHYLAXIS forvenous thrombosis, systemic embolization; TREATMENT for venous thrombosis and/or pulmonary embolus.HIGH RISK: Target INR is 2.5-3.5 for patients with mechanical heart valves.CBC W/PLT COUNT & AUTO [id number] 04:59:00 Test Item Value Reference Range Comments WHITE BLOOD CELL COUNT (BEAKER) (test xytw=615) 5.0 K/ L 3.5-10.5 RED BLOOD CELL COUNT (BEAKER) (test jmrx=684) 2.24 M/ L 4.63-6.08 HEMOGLOBIN (BEAKER) (test zcmw=773) 7.2 GM/DL 13.7-17.5 HEMATOCRIT (BEAKER) (test dumv=775) 20.8 % 40.1-51.0 MEAN CORPUSCULAR VOLUME (BEAKER) (test ikqm=248) 92.9 fL 79.0-92.2 MEAN CORPUSCULAR HEMOGLOBIN (BEAKER) (test 32.1 pg 25.7-32.2 mpze=602) MEAN CORPUSCULAR HEMOGLOBIN CONC (BEAKER) (test 34.6 GM/DL 32.3-36.5 emib=350) RED CELL DISTRIBUTION WIDTH (BEAKER) (test 14.2 % 11.6-14.4 goji=142) PLATELET COUNT (BEAKER) (test jqsj=454) 56 K/CU MM 150-450 MEAN PLATELET VOLUME (BEAKER) (test okqx=855) 8.9 fL 9.4-12.4 NUCLEATED RED BLOOD CELLS (BEAKER) (test 0 /100 WBC 0-0 rrvt=293) NEUTROPHILS RELATIVE PERCENT (BEAKER) (test 82 % cljn=283) LYMPHOCYTES RELATIVE PERCENT (BEAKER) (test 5 % lmdb=602) MONOCYTES RELATIVE PERCENT (BEAKER) (test 12 % jpsn=942) EOSINOPHILS RELATIVE PERCENT (BEAKER) (test 0 % orma=258) BASOPHILS RELATIVE PERCENT (BEAKER) (test 0 % xicw=407) NEUTROPHILS ABSOLUTE COUNT (BEAKER) (test 4.12 K/ L 1.78-5.38 qvxn=394) LYMPHOCYTES ABSOLUTE COUNT (BEAKER) (test 0.26 K/ L 1.32-3.57 lqlz=116) MONOCYTES ABSOLUTE COUNT (BEAKER) (test ezfz=022) 0.59 K/ L 0.30-0.82 EOSINOPHILS ABSOLUTE COUNT (BEAKER) (test 0.00 K/ L 0.04-0.54 tvdv=705) BASOPHILS ABSOLUTE COUNT (BEAKER) (test byix=420) 0.00 K/ L 0.01-0.08 IMMATURE GRANULOCYTES-RELATIVE PERCENT (BEAKER) 1 % 0-1 (test xpgc=3870) CALCIUM, [id number] 04:57:00 Test Item Value Reference Range Comments CALCIUM IONIZED (BEAKER) (test ombs=406) 1.14 mmol/L 1.12-1.27 PH, BLOOD (BEAKER) (test sdcf=8760) 7.39 POCT-GLUCOSE [id number] 00:41:00 Test Item Value Reference Range Comments POC-GLUCOSE METER (BEAKER) 186 mg/dL 70-110 TESTED AT [facility] [address] [facility] (test blpg=4061) [facility] [address] CORTISOL,60 [id number] 23:00:00 Test Item Value Reference Range Comments CORTISOL BASELINE NETWORKED (BEAKER) (test 7.5 mcg/dL gtke=4375) CORTISOL 30 MINUTE NETWORKED (BEAKER) (test 14.1 mcg/dL hhug=6925) CORTISOL, 60 MINUTE (BEAKER) (test exjd=5483) 18.9 ug/dL ACTH STIMULATION TEST INTERPRETATION GUIDELINES(Synonyms: [...] serum cortisollevel 60 minutes after cosyntropin administration.CORTISOL,30 [id number] 22:05:00 Test Item Value Reference Range Comments CORTISOL BASELINE NETWORKED (BEAKER) (test 7.5 mcg/dL zmyw=0331) CORTISOL, 30 MINUTE (BEAKER) (test kedv=7423) 14.1 ug/dL ACTH STIMULATION TEST INTERPRETATION GUIDELINES(Synonyms: [...] study by Mindy et al (NEVAEH 2000,283( 8):6278-45), the ACTH Stimulation Test provides important prognostic [...] cortisollevel 60 minutes after cosyntropin administration.BASIC METABOLIC [id number] 21:42:00 Test Item Value Reference Range Comments SODIUM (BEAKER) (test 123 meq/L 136-145 fumv=459) POTASSIUM (BEAKER) (test 4.3 meq/L 3.5-5.1 legj=379) CHLORIDE (BEAKER) (test 93 meq/L 98-107 ouaq=552) CO2 (BEAKER) (test 24 meq/L 22-29 cxfr=401) BLOOD UREA NITROGEN 29 mg/dL 7-21 (BEAKER) (test iwbi=735) CREATININE (BEAKER) (test 1.38 mg/dL 0.57-1.25 wobj=081) GLUCOSE RANDOM (BEAKER) 109 mg/dL 70-105 (test misx=619) CALCIUM (BEAKER) (test 9.2 mg/dL 8.4-10.2 tpyn=115) EGFR (BEAKER) (test 54 mL/min/1.73 sq m ESTIMATED GFR IS NOT cctq=1982) ACCURATE CREATININE CLEARANCE IN PREDICTING GLOMERULAR FILTRATION RATE. ESTIMATED GFR IS NOT APPLICABLE FOR DIALYSIS PATIENTS. Call results to Dr Almendarez METABOLIC [id number] 18:03:00 Test Item Value Reference Range Comments SODIUM (BEAKER) (test 124 meq/L 136-145 wvuq=383) POTASSIUM (BEAKER) (test 4.6 meq/L 3.5-5.1 qbkp=963) CHLORIDE (BEAKER) (test 93 meq/L 98-107 kute=572) CO2 (BEAKER) (test 25 meq/L 22-29 zmdp=971) BLOOD UREA NITROGEN 32 mg/dL 7-21 (BEAKER) (test atme=293) CREATININE (BEAKER) (test 1.40 mg/dL 0.57-1.25 woiv=268) GLUCOSE RANDOM (BEAKER) 94 mg/dL 70-105 (test dvfr=447) CALCIUM (BEAKER) (test 9.0 mg/dL 8.4-10.2 auqo=969) EGFR (BEAKER) (test 53 mL/min/1.73 sq m ESTIMATED GFR IS NOT lyjk=4117) ACCURATE CREATININE CLEARANCE IN PREDICTING GLOMERULAR FILTRATION RATE. ESTIMATED GFR IS NOT APPLICABLE FOR DIALYSIS PATIENTS. BODY FLUID CELL COUNT WITH [id number] 13:54:00 Test Item Value Reference Range Comments APPEARANCE FLUID (BEAKER) (test ohok=632) Slightly Hazy Clear COLOR FLUID (BEAKER) (test oxoe=939) Yellow Colorless, Straw RBC FLUID (BEAKER) (test qsiy=444) 1000 /cu mm <=1 ADJUSTED WBC FLUID (BEAKER) (test vxbp=7376) 54 /cu mm <=5 LINING CELLS (BEAKER) (test belf=0590) 2 /cu mm <=1 NEUTROPHILS FLUID (BEAKER) (test hrsm=1138) 6 % LYMPHS FLUID (BEAKER) (test gzru=171) 25 % MONO/MACROPHAGE FLUID (BEAKER) (test 69 % hnnk=538) EOSINOPHILS FLUID (BEAKER) (test vomy=617) 0 % BASO FLUID (BEAKER) (test pizl=256) 0 % CONTAINER BODY FLUID (BEAKER) (test Sterile Vial mdmz=3568) ALBUMIN, BODY [id number] 13:45:00 Test Item Value Reference Range Comments ALBUMIN FLUID (BEAKER) (test rtie=383) 0.8 gm/dL Reference Range: No Normals Assay performance has not been validated for this type of specimen.LACTATE DEHYDROGENASE (LDH), BODY [id number] 13:13:00 Test Item Value Reference Range Comments LACTATE DEHYDROGENASE FLUID (BEAKER) (test qjiz=722) < U/L Absence of reference range indicates that normals have not been defined.Assay performance has not been validated for this type of specimen.GLUCOSE, BODY [id number] 13:13:00 Test Item Value Reference Range Comments GLUCOSE, BODY FLUID (BEAKER) (test rjcn=2762) 82 mg/dL Absence of reference range indicates that normals have not been defined.Assay performance has not been validated for this type of specimen.TRIGLYCERIDES, BODY [id number] 13:10:00 Test Item Value Reference Range Comments TRIGLYCERIDES FLUID (BEAKER) (test ncdb=246) 39 mg/dL Reference Range: No Normals Assay performance has not been validated for this type of specimen.PROTEIN, BODY [id number] 13:09:00 Test Item Value Reference Range Comments PROTEIN FLUID (BEAKER) (test rsav=136) 1.2 g/dL Absence of reference range indicates that normals have not been defined.Assay performance has not been validated for this type of specimen.CORTISOL, [id number] 12:52:00 Test Item Value Reference Range Comments CORTISOL, BASELINE (BEAKER) (test qdhn=8966) 7.5 ug/dL ACTH STIMULATION TEST INTERPRETATION GUIDELINES(Synonyms: [...] cortisollevel 60 minutes after cosyntropin administration.BASIC METABOLIC [id number] 12:40:00 Test Item Value Reference Range Comments SODIUM (BEAKER) (test 119 meq/L 136-145 sxeu=552) POTASSIUM (BEAKER) (test 5.2 meq/L 3.5-5.1 gghq=760) CHLORIDE (BEAKER) (test 90 meq/L 98-107 abfk=900) CO2 (BEAKER) (test 23 meq/L 22-29 ypqi=200) BLOOD UREA NITROGEN 34 mg/dL 7-21 (BEAKER) (test sawt=037) CREATININE (BEAKER) (test 1.46 mg/dL 0.57-1.25 sygg=810) GLUCOSE RANDOM (BEAKER) 84 mg/dL 70-105 (test lnfy=863) CALCIUM (BEAKER) (test 8.8 mg/dL 8.4-10.2 eldy=750) EGFR (BEAKER) (test 51 mL/min/1.73 sq m ESTIMATED GFR IS NOT tlrl=1471) ACCURATE CREATININE CLEARANCE IN PREDICTING GLOMERULAR FILTRATION RATE. ESTIMATED GFR IS NOT APPLICABLE FOR DIALYSIS PATIENTS. Specimen slightly ictericRAD, CHEST, 1 VIEW, NON [id number] 11:50:00Reason for exam:->coughShould this be performed at the bedside?->YesFINAL REPORT Chest one view compared to May 12, 2018 Discussion: There is diffuse interstitial prominence. No effusion or pneumothorax. Heart size normal. IMPRESSIONS: No changeSigned: Nisbet, Karina MDReport Verified Date/ Time: 08/26/2018 11:50:19 Reading Location: [facility] Reading Room BASIC METABOLIC [id number] 09:35:00 Test Item Value Reference Range Comments SODIUM (BEAKER) (test 119 meq/L 136-145 wiiv=907) POTASSIUM (BEAKER) (test 4.9 meq/L 3.5-5.1 czxs=043) CHLORIDE (BEAKER) (test 89 meq/L 98-107 nblh=756) CO2 (BEAKER) (test 23 meq/L 22-29 todw=706) BLOOD UREA NITROGEN 36 mg/dL 7-21 (BEAKER) (test hgmz=103) CREATININE (BEAKER) (test 1.46 mg/dL 0.57-1.25 qhtn=970) GLUCOSE RANDOM (BEAKER) 83 mg/dL 70-105 (test qbzq=386) CALCIUM (BEAKER) (test 8.8 mg/dL 8.4-10.2 uvzz=954) EGFR (BEAKER) (test 51 mL/min/1.73 sq m ESTIMATED GFR IS NOT qxkk=9554) ACCURATE CREATININE CLEARANCE IN PREDICTING GLOMERULAR FILTRATION RATE. ESTIMATED GFR IS NOT APPLICABLE FOR DIALYSIS PATIENTS. POCT-GLUCOSE [id number] 05:56:00 Test Item Value Reference Range Comments POC-GLUCOSE METER (BEAKER) 86 mg/dL 70-110 TESTED AT [facility] [address] [facility] (test dubd=2122) [facility] [address] CBC W/PLT COUNT & AUTO [id number] 04:42:00 Test Item Value Reference Range Comments WHITE BLOOD CELL COUNT (BEAKER) (test leua=142) 10.5 K/ L 3.5-10.5 RED BLOOD CELL COUNT (BEAKER) (test fvfw=931) 2.37 M/ L 4.63-6.08 HEMOGLOBIN (BEAKER) (test jewu=128) 7.4 GM/DL 13.7-17.5 HEMATOCRIT (BEAKER) (test lpmb=549) 21.6 % 40.1-51.0 MEAN CORPUSCULAR VOLUME (BEAKER) (test lcpq=917) 91.1 fL 79.0-92.2 MEAN CORPUSCULAR HEMOGLOBIN (BEAKER) (test 31.2 pg 25.7-32.2 hmsu=632) MEAN CORPUSCULAR HEMOGLOBIN CONC (BEAKER) (test 34.3 GM/DL 32.3-36.5 jufz=317) RED CELL DISTRIBUTION WIDTH (BEAKER) (test 14.4 % 11.6-14.4 xqfi=869) PLATELET COUNT (BEAKER) (test rjvg=719) 67 K/CU MM 150-450 MEAN PLATELET VOLUME (BEAKER) (test nzoh=838) 8.3 fL 9.4-12.4 NUCLEATED RED BLOOD CELLS (BEAKER) (test 0 /100 WBC 0-0 ppew=670) NEUTROPHILS RELATIVE PERCENT (BEAKER) (test 82 % hixl=489) LYMPHOCYTES RELATIVE PERCENT (BEAKER) (test 4 % jqnp=952) MONOCYTES RELATIVE PERCENT (BEAKER) (test 12 % bqyh=119) EOSINOPHILS RELATIVE PERCENT (BEAKER) (test 1 % aesj=778) BASOPHILS RELATIVE PERCENT (BEAKER) (test 0 % gzjy=031) NEUTROPHILS ABSOLUTE COUNT (BEAKER) (test 8.62 K/ L 1.78-5.38 kklh=280) LYMPHOCYTES ABSOLUTE COUNT (BEAKER) (test 0.45 K/ L 1.32-3.57 cdve=140) MONOCYTES ABSOLUTE COUNT (BEAKER) (test afeb=633) 1.31 K/ L 0.30-0.82 EOSINOPHILS ABSOLUTE COUNT (BEAKER) (test 0.10 K/ L 0.04-0.54 gqgh=651) BASOPHILS ABSOLUTE COUNT (BEAKER) (test pxwx=384) 0.00 K/ L 0.01-0.08 IMMATURE GRANULOCYTES-RELATIVE PERCENT (BEAKER) 1 % 0-1 (test qaec=8045) COMPREHENSIVE METABOLIC [id number] 04:36:00 Test Item Value Reference Range Comments TOTAL PROTEIN (BEAKER) 4.9 gm/dL 6.0-8.3 (test kbll=521) ALBUMIN (BEAKER) (test 2.8 g/dL 3.5-5.0 mdzp=5048) ALKALINE PHOSPHATASE 146 U/L 40-150 (BEAKER) (test eovt=827) BILIRUBIN TOTAL (BEAKER) 2.9 mg/dL 0.2-1.2 (test aadz=305) SODIUM (BEAKER) (test 118 meq/L 136-145 tjge=403) POTASSIUM (BEAKER) (test 5.2 meq/L 3.5-5.1 jfgj=385) CHLORIDE (BEAKER) (test 90 meq/L 98-107 xyaw=845) CO2 (BEAKER) (test 23 meq/L 22-29 ojwf=678) BLOOD UREA NITROGEN 37 mg/dL 7-21 (BEAKER) (test okjo=964) CREATININE (BEAKER) (test 1.47 mg/dL 0.57-1.25 yhng=526) GLUCOSE RANDOM (BEAKER) 65 mg/dL 70-105 (test cfdo=432) CALCIUM (BEAKER) (test 8.9 mg/dL 8.4-10.2 rjcl=707) AST (SGOT) (BEAKER) (test 29 U/L 5-34 hbtm=563) ALT (SGPT) (BEAKER) (test 10 U/L 6-55 swac=446) EGFR (BEAKER) (test 50 mL/min/1.73 sq m ESTIMATED GFR IS NOT xsif=9802) ACCURATE CREATININE CLEARANCE IN PREDICTING GLOMERULAR FILTRATION RATE. ESTIMATED GFR IS NOT APPLICABLE FOR DIALYSIS PATIENTS. Specimen slightly [id number] 04:33:00 Test Item Value Reference Range Comments PHOSPHORUS (BEAKER) (test aaaj=071) 3.1 mg/dL 2.3-4.7 [id number] 04:33:00 Test Item Value Reference Range Comments MAGNESIUM (BEAKER) (test hkte=260) 2.1 mg/dL 1.6-2.6 CALCIUM, [id number] 04:05:00 Test Item Value Reference Range Comments CALCIUM IONIZED (BEAKER) (test hhof=760) 1.13 mmol/L 1.12-1.27 PH, BLOOD (BEAKER) (test wgya=7269) 7.38 BASIC METABOLIC [id number] 01:34:00 Test Item Value Reference Range Comments SODIUM (BEAKER) (test 117 meq/L 136-145 gnxx=862) POTASSIUM (BEAKER) (test 4.9 meq/L 3.5-5.1 mbuf=797) CHLORIDE (BEAKER) (test 89 meq/L 98-107 kqam=308) CO2 (BEAKER) (test 22 meq/L 22-29 chav=141) BLOOD UREA NITROGEN 37 mg/dL 7-21 (BEAKER) (test fxfy=453) CREATININE (BEAKER) (test 1.52 mg/dL 0.57-1.25 atqb=958) GLUCOSE RANDOM (BEAKER) 67 mg/dL 70-105 (test xmvh=697) CALCIUM (BEAKER) (test 9.1 mg/dL 8.4-10.2 vkbz=297) EGFR (BEAKER) (test 48 mL/min/1.73 sq m ESTIMATED GFR IS NOT uvce=4240) ACCURATE CREATININE CLEARANCE IN PREDICTING GLOMERULAR FILTRATION RATE. ESTIMATED GFR IS NOT APPLICABLE FOR DIALYSIS PATIENTS. Specimen slightly ictericU/S, ABDOMINAL, [id number] 23:49:00Abdomen limited area? Add comment if clarification [...] [place] Verified Date/Time: 08/25/2018 23:49:36 Reading Location: [facility] B1 [id number] CT Body Reading Room POCT-GLUCOSE [id number] 23:16:00 Test Item Value Reference Range Comments POC-GLUCOSE METER (BEAKER) 89 mg/dL 70-110 TESTED AT [facility] [address] [facility] (test wvnb=0345) [facility] [address] COMPREHENSIVE METABOLIC [id number] 21:15:00 Test Item Value Reference Range Comments TOTAL PROTEIN (BEAKER) 5.4 gm/dL 6.0-8.3 (test flyi=416) ALBUMIN (BEAKER) (test 3.1 g/dL 3.5-5.0 kzky=6596) ALKALINE PHOSPHATASE 164 U/L 40-150 (BEAKER) (test jtds=890) BILIRUBIN TOTAL (BEAKER) 3.1 mg/dL 0.2-1.2 (test ezea=698) SODIUM (BEAKER) (test 116 meq/L 136-145 ytmt=048) POTASSIUM (BEAKER) (test 5.0 meq/L 3.5-5.1 gyaj=474) CHLORIDE (BEAKER) (test 87 meq/L 98-107 zcev=267) CO2 (BEAKER) (test 22 meq/L 22-29 smuc=048) BLOOD UREA NITROGEN 38 mg/dL 7-21 (BEAKER) (test pmql=113) CREATININE (BEAKER) (test 1.52 mg/dL 0.57-1.25 bwzq=417) GLUCOSE RANDOM (BEAKER) 67 mg/dL 70-105 (test cnoy=285) CALCIUM (BEAKER) (test 9.1 mg/dL 8.4-10.2 igxq=005) AST (SGOT) (BEAKER) (test 30 U/L 5-34 sjsg=630) ALT (SGPT) (BEAKER) (test 10 U/L 6-55 lpbo=425) EGFR (BEAKER) (test 48 mL/min/1.73 sq m ESTIMATED GFR IS NOT fzfw=1493) ACCURATE CREATININE CLEARANCE IN PREDICTING GLOMERULAR FILTRATION RATE. ESTIMATED GFR IS NOT APPLICABLE FOR DIALYSIS PATIENTS. Recheck and call Dr. Solorio with results [phone] slightly ictericBASIC METABOLIC [id number] 17:36:00 Test Item Value Reference Range Comments SODIUM (BEAKER) (test 119 meq/L 136-145 rpus=260) POTASSIUM (BEAKER) (test 5.0 meq/L 3.5-5.1 zdqu=275) CHLORIDE (BEAKER) (test 89 meq/L 98-107 hfwl=025) CO2 (BEAKER) (test 22 meq/L 22-29 iqke=638) BLOOD UREA NITROGEN 38 mg/dL 7-21 (BEAKER) (test lkhc=608) CREATININE (BEAKER) (test 1.50 mg/dL 0.57-1.25 qtvz=190) GLUCOSE RANDOM (BEAKER) 70 mg/dL 70-105 (test cijt=098) CALCIUM (BEAKER) (test 8.9 mg/dL 8.4-10.2 zwkk=644) EGFR (BEAKER) (test 49 mL/min/1.73 sq m ESTIMATED GFR IS NOT itry=4615) ACCURATE CREATININE CLEARANCE IN PREDICTING GLOMERULAR FILTRATION RATE. ESTIMATED GFR IS NOT APPLICABLE FOR DIALYSIS PATIENTS. Specimen slightly ictericCT, CHEST, WITH HIGH RESOLUTION, INTERSTITAL LUNG [id number] 17:36:00Reason for exam:->follow up for lung noduleFINAL [...] MDReport Verified Date/Time: 08/25/2018 17:36:51 Reading Location: [facility] B1 [id number] CT Body Reading Room CT, SPINE, LUMBAR, WO [id number] 17:06:00FINAL REPORT CT thoracic and lumbar spine [...] Verified Date/Time: 08/25/2018 17:06:21 Reading Location: [facility] Radiology Reading Room CT, SPINE, THORACIC, WO [id number] 17:06:00FINAL REPORT CT thoracic and lumbar spine [...] Date/Time: 08/25/2018 17: 06:21 Reading Location: [facility] Radiology Reading Room EOSINOPHIL SMEAR, [id number] 16:40:00 Test Item Value Reference Range Comments EOSINOPHIL SMEAR, URINE (BEAKER) (test No EOS seen No EOS seen wrpb=9996) SODIUM, RANDOM [id number] 15:13:00 Test Item Value Reference Range Comments SODIUM URINE (BEAKER) (test yjkb=495) < meq/L Reference Range: No NormalsCOMPREHENSIVE METABOLIC [id number] 15:12:00 Test Item Value Reference Range Comments TOTAL PROTEIN (BEAKER) 5.0 gm/dL 6.0-8.3 (test rkyl=512) ALBUMIN (BEAKER) (test 2.9 g/dL 3.5-5.0 rkpc=2487) ALKALINE PHOSPHATASE 154 U/L 40-150 (BEAKER) (test olhg=877) BILIRUBIN TOTAL (BEAKER) 3.1 mg/dL 0.2-1.2 (test pzln=140) SODIUM (BEAKER) (test 116 meq/L 136-145 qhec=521) POTASSIUM (BEAKER) (test 4.8 meq/L 3.5-5.1 eyob=701) CHLORIDE (BEAKER) (test 87 meq/L 98-107 zmdn=264) CO2 (BEAKER) (test 24 meq/L 22-29 fxfe=186) BLOOD UREA NITROGEN 39 mg/dL 7-21 (BEAKER) (test wyyv=666) CREATININE (BEAKER) (test 1.53 mg/dL 0.57-1.25 phni=519) GLUCOSE RANDOM (BEAKER) 67 mg/dL 70-105 (test gsww=851) CALCIUM (BEAKER) (test 8.6 mg/dL 8.4-10.2 lkgf=940) AST (SGOT) (BEAKER) (test 24 U/L 5-34 sgvo=504) ALT (SGPT) (BEAKER) (test 11 U/L 6-55 hhyz=079) EGFR (BEAKER) (test 48 mL/min/1.73 sq m ESTIMATED GFR IS NOT tbjh=9079) ACCURATE CREATININE CLEARANCE IN PREDICTING GLOMERULAR FILTRATION RATE. ESTIMATED GFR IS NOT APPLICABLE FOR DIALYSIS PATIENTS. Specimen slightly ictericPROTEIN, RANDOM [id number] 15:12:00 Test Item Value Reference Range Comments PROTEIN, URINE (BEAKER) (test iixb=9479) < mg/dL 0-14 CREATININE, RANDOM [id number] 15:10:00 Test Item Value Reference Range Comments CREATININE URINE (BEAKER) (test idid=790) 75.0 mg/dL Reference Range: No NormalsURINALYSIS W/ [id number] 14:55:00 Test Item Value Reference Range Comments COLOR (BEAKER) (test ofjo=962) Yellow CLARITY (BEAKER) (test qkkz=703) Hazy SPECIFIC GRAVITY UA (BEAKER) (test aejr=522) 1.009 1.001-1.035 PH UA (BEAKER) (test kuri=546) 5.5 5.0-8.0 PROTEIN UA (BEAKER) (test iijl=294) Negative Negative GLUCOSE UA (BEAKER) (test gpgz=776) Negative Negative KETONES UA (BEAKER) (test vspj=262) Negative Negative BILIRUBIN UA (BEAKER) (test fxog=112) Negative Negative BLOOD UA (BEAKER) (test qmlg=286) Small Negative NITRITE UA (BEAKER) (test xerv=773) Negative Negative LEUKOCYTE ESTERASE UA (BEAKER) (test kvqy=044) Negative Negative UROBILINOGEN UA (BEAKER) (test omug=479) 0.2 mg/dL 0.2-1.0 RBC UA (BEAKER) (test eknm=280) 20 /HPF WBC UA (BEAKER) (test rsvn=086) 27 /HPF SQUAMOUS EPITHELIAL (BEAKER) (test suvv=612) 18 /HPF SOURCE(BEAKER) (test qesk=0925) URINALYSIS W/ REFLEX URINE [id number] 14:47:00 Test Item Value Reference Range Comments COLOR (BEAKER) (test eqjn=656) Yellow CLARITY (BEAKER) (test hrxs=863) Hazy SPECIFIC GRAVITY UA (BEAKER) (test wjbg=772) 1.010 1.001-1.035 PH UA (BEAKER) (test mqot=991) 5.5 5.0-8.0 PROTEIN UA (BEAKER) (test hqkw=961) Negative Negative GLUCOSE UA (BEAKER) (test ipcs=304) Negative Negative KETONES UA (BEAKER) (test jymy=449) Negative Negative BILIRUBIN UA (BEAKER) (test zcng=843) Negative Negative BLOOD UA (BEAKER) (test vybw=848) Small Negative NITRITE UA (BEAKER) (test hyaz=168) Negative Negative LEUKOCYTE ESTERASE UA (BEAKER) (test tsow=052) Negative Negative UROBILINOGEN UA (BEAKER) (test znqb=779) 0.2 mg/dL 0.2-1.0 RBC UA (BEAKER) (test betu=221) 38 /HPF WBC UA (BEAKER) (test nrbq=235) 7 /HPF SQUAMOUS EPITHELIAL (BEAKER) (test gznw=028) 18 /HPF AMORPHOUS CRYSTALS (BEAKER) (test tflq=3751) Rare SOURCE(BEAKER) (test fnkj=4751) OSMOLALITY, [id number] 14:40:00 Test Item Value Reference Range Comments OSMOLALITY URINE (BEAKER) (test fuaj=701) 284 mOsm/kg 40-1,400 [id number] 13:34:00 Test Item Value Reference Range Comments PROCALCITONIN (BEAKER) (test agss=2533) 0.25 ng/mL <0.05 SEPSIS RISK (ng/mL)Low: 0.05-0.50Intermediate: 0.51-2.00High: & gt;=2.01OSMOLALITY, [id number] 12:43:00 Test Item Value Reference Range Comments OSMOLALITY URINE (BEAKER) (test cnay=581) 316 mOsm/kg 40-1,400 OSMOLALITY, [id number] 12:41:00 Test Item Value Reference Range Comments OSMOLALITY, SERUM (BEAKER) (test nzuk=940) 259 mOsm/kg 275-295 TSH/FREE T4 IF [id number] 11:36:00 Test Item Value Reference Range Comments THYROID STIMULATING HORMONE (BEAKER) (test 2.55 uIU/mL 0.35-4.94 lglq=438) [id number] 11:34:00 Test Item Value Reference Range Comments CORTISOL, TOTAL (BEAKER) (test rtwm=3955) 7.9 ug/dL 3.7-19.4 SODIUM, RANDOM [id number] 11:34:00 Test Item Value Reference Range Comments SODIUM URINE (BEAKER) (test vodv=811) < meq/L Reference Range: No NormalsBASIC METABOLIC [id number] 11:24:00 Test Item Value Reference Range Comments SODIUM (BEAKER) (test 113 meq/L 136-145 kqaj=900) POTASSIUM (BEAKER) (test 5.3 meq/L 3.5-5.1 iyee=609) CHLORIDE (BEAKER) (test 86 meq/L 98-107 giwg=887) CO2 (BEAKER) (test 21 meq/L 22-29 caht=058) BLOOD UREA NITROGEN 39 mg/dL 7-21 (BEAKER) (test baso=942) CREATININE (BEAKER) (test 1.57 mg/dL 0.57-1.25 pkzw=097) GLUCOSE RANDOM (BEAKER) 64 mg/dL 70-105 (test eqxl=169) CALCIUM (BEAKER) (test 9.1 mg/dL 8.4-10.2 oesx=490) EGFR (BEAKER) (test 46 mL/min/1.73 sq m ESTIMATED GFR IS NOT dsnc=3855) ACCURATE CREATININE CLEARANCE IN PREDICTING GLOMERULAR FILTRATION RATE. ESTIMATED GFR IS NOT APPLICABLE FOR DIALYSIS PATIENTS. Specimen slightly ictericURIC [id number] 11:21:00 Test Item Value Reference Range Comments URIC ACID (BEAKER) (test ofvx=981) 8.2 mg/dL 2.6-7.2 Specimen slightly ictericCREATININE, RANDOM [id number] 11:21:00 Test Item Value Reference Range Comments CREATININE URINE (BEAKER) (test tvig=571) 81.9 mg/dL Reference Range: No NormalsPOTASSIUM, RANDOM [id number] 11:21:00 Test Item Value Reference Range Comments POTASSIUM URINE (BEAKER) (test qbkn=298) 19.2 meq/L Reference Range: No NormalsCBC W/PLT COUNT & AUTO [id number] 10: 20:00 Test Item Value Reference Range Comments WHITE BLOOD CELL COUNT (BEAKER) (test cvta=172) 10.9 K/ L 3.5-10.5 RED BLOOD CELL COUNT (BEAKER) (test jzzp=999) 2.46 M/ L 4.63-6.08 HEMOGLOBIN (BEAKER) (test oflw=090) 7.9 GM/DL 13.7-17.5 HEMATOCRIT (BEAKER) (test xmki=322) 22.2 % 40.1-51.0 MEAN CORPUSCULAR VOLUME (BEAKER) (test lvrj=512) 90.2 fL 79.0-92.2 MEAN CORPUSCULAR HEMOGLOBIN (BEAKER) (test 32.1 pg 25.7-32.2 agsp=113) MEAN CORPUSCULAR HEMOGLOBIN CONC (BEAKER) (test 35.6 GM/DL 32.3-36.5 oabl=727) RED CELL DISTRIBUTION WIDTH (BEAKER) (test 14.2 % 11.6-14.4 bath=229) PLATELET COUNT (BEAKER) (test hvkr=122) 82 K/CU MM 150-450 MEAN PLATELET VOLUME (BEAKER) (test bdpq=510) 8.3 fL 9.4-12.4 NUCLEATED RED BLOOD CELLS (BEAKER) (test 0 /100 WBC 0-0 gkkx=317) (CELLAVISION MANUAL DIFF)[id number] 10:20:00 Test Item Value Reference Range Comments NEUTROPHILS - REL (CELLAVISION)(BEAKER) (test 80 % egvq=5338) LYMPHOCYTES - REL (CELLAVISION)(BEAKER) (test 2 % exwp=7718) MONOCYTES - REL (CELLAVISION)(BEAKER) (test 6 % vxnp=6709) BANDS - REL (CELLAVISION)(BEAKER) (test 12 % 0-10 hrzt=4785) NEUTROPHILS - ABS (CELLAVISION)(BEAKER) (test 8.72 K/ul 1.78-5.38 idfh=4730) LYMPHOCYTES - ABS (CELLAVISION)(BEAKER) (test 0.22 K/ul 1.32-3.57 zehe=9447) MONOCYTES - ABS (CELLAVISION)(BEAKER) (test 0.65 K/uL 0.30-0.82 pmrf=2233) BANDS - ABS (CELLAVISION)(BEAKER) (test 1.31 K/uL 0.00-0.80 asms=4966) TOTAL COUNTED (BEAKER) (test xdzt=7146) 100 WBC MORPHOLOGY (BEAKER) (test ggmd=377) Normal PLT MORPHOLOGY (BEAKER) (test mijh=332) Normal POLYCHROMATOPHILLIC RBCS(BEAKER) (test ikcl=831) 2+ moderate ANISOCYTOSIS (BEAKER) (test ierd=217) 2+ moderate POIKILOCYTES (BEAKER) (test ziza=188) 2+ moderate ARTIFACT (CELLAVISION)(BEAKER) (test thus=4475) Present PLATELET CONCENTRATION (CELLAVISION)(BEAKER) Decreased (test cifu=2097) Received comment: User comments: Slide comments:COMPREHENSIVE METABOLIC [id number] 09:30:00 Test Item Value Reference Range Comments TOTAL PROTEIN (BEAKER) 5.2 gm/dL 6.0-8.3 (test rntj=694) ALBUMIN (BEAKER) (test 3.0 g/dL 3.5-5.0 mmow=3460) ALKALINE PHOSPHATASE 158 U/L 40-150 (BEAKER) (test mmyl=577) BILIRUBIN TOTAL (BEAKER) 2.9 mg/dL 0.2-1.2 (test blpg=347) SODIUM (BEAKER) (test 111 meq/L 136-145 ooeb=807) POTASSIUM (BEAKER) (test 5.5 meq/L 3.5-5.1 mpep=178) CHLORIDE (BEAKER) (test 87 meq/L 98-107 oxnm=615) CO2 (BEAKER) (test 20 meq/L 22-29 rnpo=983) BLOOD UREA NITROGEN 39 mg/dL 7-21 (BEAKER) (test wuqz=097) CREATININE (BEAKER) (test 1.55 mg/dL 0.57-1.25 akpv=935) GLUCOSE RANDOM (BEAKER) 79 mg/dL 70-105 (test alfe=016) CALCIUM (BEAKER) (test 9.0 mg/dL 8.4-10.2 pkej=872) AST (SGOT) (BEAKER) (test 27 U/L 5-34 ljza=197) ALT (SGPT) (BEAKER) (test 9 U/L 6-55 njqk=169) EGFR (BEAKER) (test 47 mL/min/1.73 sq m ESTIMATED GFR IS NOT ofpr=8281) ACCURATE CREATININE CLEARANCE IN PREDICTING GLOMERULAR FILTRATION RATE. ESTIMATED GFR IS NOT APPLICABLE FOR DIALYSIS PATIENTS. Specimen slightly ictericLACTIC ACID, VENOUS, WHOLE [id number] 09:15:00 Test Item Value Reference Range Comments LACTATE BLOOD VENOUS (2) (BEAKER) (test 0.9 mmol/L 0.5-2.2 rgyv=1258) Effective 02/28/2016: Units/Reference Range ChangeNew: 0.5-2.2 mmol/L Previous: 5 -20 mg/dLSpecimen slightly [id number] 09:01:00 Test Item Value Reference Range Comments AMMONIA (BEAKER) (test slje=261) 83 mol/L 18-72 PT/[id number] 08:54:00 Test Item Value Reference Range Comments PROTIME (BEAKER) (test hcvr=257) 21.4 seconds 11.7-14.7 INR (BEAKER) (test suob=545) 1.9 <=5.9 PARTIAL THROMBOPLASTIN TIME (BEAKER) (test 44.2 seconds 22.5-36.0 quhf=108) RECOMMENDED COUMADIN/WARFARIN INR THERAPY RANGESSTANDARD DOSE: 2.0 - 3.0 Includes: PROPHYLAXIS forvenous thrombosis, systemic embolization; TREATMENT for venous thrombosis and/or pulmonary embolus.HIGH RISK: Target INR is 2.5-3.5 for patients with mechanical heart valves.PROTHROMBIN TIME/[id number] 08:53: 00 Test Item Value Reference Range Comments PROTIME (BEAKER) (test qexi=607) 21.4 seconds 11.7-14.7 INR (BEAKER) (test adra=370) 1.9 <=5.9 RECOMMENDED COUMADIN/WARFARIN INR THERAPY RANGESSTANDARD DOSE: 2.0 - 3.0 Includes: PROPHYLAXIS forvenous thrombosis, systemic embolization; TREATMENT for venous thrombosis and/or pulmonary embolus.HIGH RISK: Target INR is 2.5-3.5 for patients with mechanical heart valves.COMPREHENSIVE METABOLIC [id number] 13:54:00 Test Item Value Reference Range Comments TOTAL PROTEIN (BEAKER) 6.2 gm/dL 6.0-8.3 (test ffcw=276) ALBUMIN (BEAKER) (test 3.4 g/dL 3.5-5.0 fjcv=2518) ALKALINE PHOSPHATASE 190 U/L 40-150 (BEAKER) (test lmrz=527) BILIRUBIN TOTAL (BEAKER) 1.9 mg/dL 0.2-1.2 (test beqw=809) SODIUM (BEAKER) (test 125 meq/L 136-145 lpdn=666) POTASSIUM (BEAKER) (test 5.0 meq/L 3.5-5.1 xuct=442) CHLORIDE (BEAKER) (test 99 meq/L 98-107 jdhe=270) CO2 (BEAKER) (test 19 meq/L 22-29 udee=486) BLOOD UREA NITROGEN 36 mg/dL 7-21 (BEAKER) (test cwvc=935) CREATININE (BEAKER) (test 1.65 mg/dL 0.57-1.25 fpuo=553) GLUCOSE RANDOM (BEAKER) 133 mg/dL 70-105 (test oqnn=403) CALCIUM (BEAKER) (test 9.5 mg/dL 8.4-10.2 zrxx=454) AST (SGOT) (BEAKER) (test 23 U/L 5-34 wpzw=318) ALT (SGPT) (BEAKER) (test 12 U/L 6-55 bvlb=390) EGFR (BEAKER) (test 44 mL/min/1.73 sq m ESTIMATED GFR IS NOT tuwi=0265) ACCURATE CREATININE CLEARANCE IN PREDICTING GLOMERULAR FILTRATION RATE. ESTIMATED GFR IS NOT APPLICABLE FOR DIALYSIS PATIENTS. BILIRUBIN, [id number] 13:54:00 Test Item Value Reference Range Comments BILIRUBIN DIRECT (BEAKER) (test ornj=099) 1.4 mg/dL 0.1-0.5 CBC W/PLT COUNT & AUTO [id number] 13:50:00 Test Item Value Reference Range Comments WHITE BLOOD CELL COUNT (BEAKER) (test jkhe=309) 6.8 K/ L 3.5-10.5 RED BLOOD CELL COUNT (BEAKER) (test csln=448) 3.01 M/ L 4.63-6.08 HEMOGLOBIN (BEAKER) (test fudi=827) 9.5 GM/DL 13.7-17.5 HEMATOCRIT (BEAKER) (test gzlk=832) 28.3 % 40.1-51.0 MEAN CORPUSCULAR VOLUME (BEAKER) (test uqoh=877) 94.0 fL 79.0-92.2 MEAN CORPUSCULAR HEMOGLOBIN (BEAKER) (test 31.6 pg 25.7-32.2 fpwf=712) MEAN CORPUSCULAR HEMOGLOBIN CONC (BEAKER) (test 33.6 GM/DL 32.3-36.5 kyze=172) RED CELL DISTRIBUTION WIDTH (BEAKER) (test 14.5 % 11.6-14.4 ooln=912) PLATELET COUNT (BEAKER) (test fund=792) 131 K/CU MM 150-450 MEAN PLATELET VOLUME (BEAKER) (test hsci=868) 9.0 fL 9.4-12.4 NUCLEATED RED BLOOD CELLS (BEAKER) (test 0 /100 WBC 0-0 xtkh=866) NEUTROPHILS RELATIVE PERCENT (BEAKER) (test 75 % mniv=616) LYMPHOCYTES RELATIVE PERCENT (BEAKER) (test 7 % bfvz=709) MONOCYTES RELATIVE PERCENT (BEAKER) (test 14 % mowe=193) EOSINOPHILS RELATIVE PERCENT (BEAKER) (test 2 % jhca=458) BASOPHILS RELATIVE PERCENT (BEAKER) (test 0 % enxv=570) NEUTROPHILS ABSOLUTE COUNT (BEAKER) (test 5.11 K/ L 1.78-5.38 rdoe=163) LYMPHOCYTES ABSOLUTE COUNT (BEAKER) (test 0.50 K/ L 1.32-3.57 vuec=920) MONOCYTES ABSOLUTE COUNT (BEAKER) (test 0.94 K/ L 0.30-0.82 bhik=862) EOSINOPHILS ABSOLUTE COUNT (BEAKER) (test 0.12 K/ L 0.04-0.54 yoxd=188) BASOPHILS ABSOLUTE COUNT (BEAKER) (test 0.03 K/ L 0.01-0.08 cojf=577) IMMATURE GRANULOCYTES-RELATIVE PERCENT (BEAKER) 1 % 0-1 (test dcgg=7532) PROTHROMBIN TIME/[id number] 13:46:00 Test Item Value Reference Range Comments PROTIME (BEAKER) (test sjea=333) 19.5 seconds 11.7-14.7 INR (BEAKER) (test bfaj=677) 1.7 <=5.9 RECOMMENDED COUMADIN/WARFARIN INR THERAPY RANGESSTANDARD DOSE: 2.0 - 3.0 Includes: PROPHYLAXIS forvenous thrombosis, systemic embolization; TREATMENT for venous thrombosis and/or pulmonary embolus.HIGH RISK: Target INR is 2.5-3.5 for patients with mechanical heart valves.BONE AND/OR JOINT IMAGING, WHOLE [id number] 16:45:00FINAL REPORT PROCEDURE: BONE SCAN, WHOLE BODY CPT CODE: [id number] INDICATION: L3 vertebral body lesion follow-up R91.1 [...] Verified Date/ Time: 08/05/2018 16:45:34 Reading Location: [address] Reading Room NIR, VERTEBROPLASTY THORACIC, [id number] 17:23:00Reason for exam:->T11, T12, L2 compression fracturesAddendum [...] Verified Date/Time: 06/04/2018 17:23:27 Reading Location : [address] Radiology Reading RoomAddendum EndsFINAL REPORT HISTORY: [...] Verified Date/Time: 06/03/2018 17:56:43 Reading Location : [place] [id number] Angio Body Reading Room ALPHA FETOPROTEIN (AFP), TUMOR [id number] 15:20:00 Test Item Value Reference Range Comments ALPHA-FETOPROTEIN (BEAKER) (test xqtx=0136) 2.2 ng/mL <10.0 COMPREHENSIVE METABOLIC [id number] 14:54:00 Test Item Value Reference Range Comments TOTAL PROTEIN (BEAKER) 6.5 gm/dL 6.0-8.3 (test tnsj=070) ALBUMIN (BEAKER) (test 3.6 g/dL 3.5-5.0 xlkt=0521) ALKALINE PHOSPHATASE 342 U/L 40-150 (BEAKER) (test ygnd=886) BILIRUBIN TOTAL (BEAKER) 4.2 mg/dL 0.2-1.2 (test kkeh=000) SODIUM (BEAKER) (test 128 meq/L 136-145 qity=378) POTASSIUM (BEAKER) (test 4.6 meq/L 3.5-5.1 ukjn=438) CHLORIDE (BEAKER) (test 100 meq/L 98-107 xpja=573) CO2 (BEAKER) (test 21 meq/L 22-29 ytnd=297) BLOOD UREA NITROGEN 21 mg/dL 7-21 (BEAKER) (test pjcf=193) CREATININE (BEAKER) (test 1.37 mg/dL 0.57-1.25 tedm=284) GLUCOSE RANDOM (BEAKER) 108 mg/dL 70-105 (test lgfg=959) CALCIUM (BEAKER) (test 9.5 mg/dL 8.4-10.2 ossd=120) AST (SGOT) (BEAKER) (test 25 U/L 5-34 ioce=235) ALT (SGPT) (BEAKER) (test 10 U/L 6-55 allv=905) EGFR (BEAKER) (test 54 mL/min/1.73 sq m ESTIMATED GFR IS NOT iqkj=2974) ACCURATE CREATININE CLEARANCE IN PREDICTING GLOMERULAR FILTRATION RATE. ESTIMATED GFR IS NOT APPLICABLE FOR DIALYSIS PATIENTS. Specimen slightly ictericBILIRUBIN, [id number] 14:54:00 Test Item Value Reference Range Comments BILIRUBIN DIRECT (BEAKER) (test bsrt=239) 2.1 mg/dL 0.1-0.5 CBC W/PLT COUNT & AUTO [id number] 14:52:00 Test Item Value Reference Range Comments WHITE BLOOD CELL COUNT (BEAKER) (test obxv=697) 3.9 K/ L 3.5-10.5 RED BLOOD CELL COUNT (BEAKER) (test hgwb=146) 2.69 M/ L 4.63-6.08 HEMOGLOBIN (BEAKER) (test cmoy=725) 9.1 GM/DL 13.7-17.5 HEMATOCRIT (BEAKER) (test cllt=249) 27.3 % 40.1-51.0 MEAN CORPUSCULAR VOLUME (BEAKER) (test tlyl=149) 101.5 fL 79.0-92.2 MEAN CORPUSCULAR HEMOGLOBIN (BEAKER) (test 33.8 pg 25.7-32.2 ppsp=326) MEAN CORPUSCULAR HEMOGLOBIN CONC (BEAKER) (test 33.3 GM/DL 32.3-36.5 plgb=939) RED CELL DISTRIBUTION WIDTH (BEAKER) (test 18.6 % 11.6-14.4 xhmk=505) PLATELET COUNT (BEAKER) (test jknk=538) 71 K/CU MM 150-450 MEAN PLATELET VOLUME (BEAKER) (test dvxy=301) 9.6 fL 9.4-12.4 NUCLEATED RED BLOOD CELLS (BEAKER) (test 0 /100 WBC 0-0 kige=054) NEUTROPHILS RELATIVE PERCENT (BEAKER) (test 62 % jhee=432) LYMPHOCYTES RELATIVE PERCENT (BEAKER) (test 16 % lszr=637) MONOCYTES RELATIVE PERCENT (BEAKER) (test 17 % pgbx=870) EOSINOPHILS RELATIVE PERCENT (BEAKER) (test 5 % vetv=729) BASOPHILS RELATIVE PERCENT (BEAKER) (test 0 % otbb=905) NEUTROPHILS ABSOLUTE COUNT (BEAKER) (test 2.41 K/ L 1.78-5.38 ivka=512) LYMPHOCYTES ABSOLUTE COUNT (BEAKER) (test 0.62 K/ L 1.32-3.57 dadm=115) MONOCYTES ABSOLUTE COUNT (BEAKER) (test yuid=668) 0.65 K/ L 0.30-0.82 EOSINOPHILS ABSOLUTE COUNT (BEAKER) (test 0.20 K/ L 0.04-0.54 eazw=221) BASOPHILS ABSOLUTE COUNT (BEAKER) (test oisl=154) 0.01 K/ L 0.01-0.08 IMMATURE GRANULOCYTES-RELATIVE PERCENT (BEAKER) 0 % 0-1 (test hzwi=8128) PROTHROMBIN TIME/[id number] 14:50:00 Test Item Value Reference Range Comments PROTIME (BEAKER) (test ntft=319) 19.5 seconds 11.7-14.7 INR (BEAKER) (test xlyz=396) 1.7 <=5.9 RECOMMENDED COUMADIN/WARFARIN INR THERAPY RANGESSTANDARD DOSE: 2.0 - 3.0 Includes: PROPHYLAXIS forvenous thrombosis, systemic embolization; TREATMENT for venous thrombosis and/or pulmonary embolus.HIGH RISK: Target INR is 2.5-3.5 for patients with mechanical heart valves.BODY FLUID CULTURE + GRAM [id number] 13:19:00 Test Item Value Reference Range Comments CULTURE (BEAKER) (test wmvb=0046) No growth GRAM STAIN RESULT (BEAKER) (test No WBCs ikou=2651) GRAM STAIN RESULT (BEAKER) (test No organisms seen ramc=39581) [id number] 17:36:00 Test Item Value Reference Range Comments SODIUM (BEAKER) (test zalt=304) 133 meq/L 136-145 POTASSIUM (BEAKER) (test tzdp=679) 3.2 meq/L 3.5-5.1 CHLORIDE (BEAKER) (test cpay=180) 102 meq/L 98-107 CO2 (BEAKER) (test ksga=621) 21 meq/L 22-29 [id number] 13:21:00 Test Item Value Reference Range Comments SODIUM (BEAKER) (test wqbs=492) 134 meq/L 136-145 POTASSIUM (BEAKER) (test xnrg=419) 3.0 meq/L 3.5-5.1 CHLORIDE (BEAKER) (test doao=597) 103 meq/L 98-107 CO2 (BEAKER) (test yurp=764) 22 meq/L 22-29 CALCIUM, [id number] 04:54:00 Test Item Value Reference Range Comments CALCIUM IONIZED (BEAKER) (test ggms=155) 1.09 mmol/L 1.12-1.27 PH, BLOOD (BEAKER) (test cyyf=3412) 7.35 [id number] 04:04:00 Test Item Value Reference Range Comments PHOSPHORUS (BEAKER) (test wzvx=279) 2.4 mg/dL 2.3-4.7 [id number] 04:04:00 Test Item Value Reference Range Comments MAGNESIUM (BEAKER) (test gndd=468) 2.0 mg/dL 1.6-2.6 HEPATIC FUNCTION [id number] 04:04:00 Test Item Value Reference Range Comments TOTAL PROTEIN (BEAKER) (test hmza=198) 5.8 gm/dL 6.0-8.3 ALBUMIN (BEAKER) (test owfm=8884) 4.1 g/dL 3.5-5.0 BILIRUBIN TOTAL (BEAKER) (test ewlz=234) 3.9 mg/dL 0.2-1.2 BILIRUBIN DIRECT (BEAKER) (test eavp=489) 2.0 mg/dL 0.1-0.5 ALKALINE PHOSPHATASE (BEAKER) (test vubk=424) 123 U/L 40-150 AST (SGOT) (BEAKER) (test irsu=478) 14 U/L 5-34 ALT (SGPT) (BEAKER) (test oxvy=000) < U/L 6-55 Specimen slightly ictericCOMPREHENSIVE METABOLIC [id number] 04:04:00 Test Item Value Reference Range Comments TOTAL PROTEIN (BEAKER) 5.8 gm/dL 6.0-8.3 (test ebab=303) ALBUMIN (BEAKER) (test 4.1 g/dL 3.5-5.0 lauo=9110) ALKALINE PHOSPHATASE 123 U/L 40-150 (BEAKER) (test jibv=767) BILIRUBIN TOTAL (BEAKER) 3.9 mg/dL 0.2-1.2 (test yqmk=759) SODIUM (BEAKER) (test 135 meq/L 136-145 evfg=711) POTASSIUM (BEAKER) (test 2.9 meq/L 3.5-5.1 qtsz=108) CHLORIDE (BEAKER) (test 103 meq/L 98-107 ceem=546) CO2 (BEAKER) (test 21 meq/L 22-29 zonr=975) BLOOD UREA NITROGEN 18 mg/dL 7-21 (BEAKER) (test nyzs=875) CREATININE (BEAKER) (test 1.32 mg/dL 0.57-1.25 kdwk=305) GLUCOSE RANDOM (BEAKER) 126 mg/dL 70-105 (test nppj=245) CALCIUM (BEAKER) (test 9.8 mg/dL 8.4-10.2 yezn=342) AST (SGOT) (BEAKER) (test 14 U/L 5-34 rejt=378) ALT (SGPT) (BEAKER) (test < U/L 6-55 jmmo=669) EGFR (BEAKER) (test 57 mL/min/1.73 sq m ESTIMATED GFR IS NOT yjtp=7936) ACCURATE CREATININE CLEARANCE IN PREDICTING GLOMERULAR FILTRATION RATE. ESTIMATED GFR IS NOT APPLICABLE FOR DIALYSIS PATIENTS. Specimen slightly ictericPROTHROMBIN [id number] 04:02:00 Test Item Value Reference Range Comments PROTIME (BEAKER) (test knew=445) 25.1 seconds 11.7-14.7 INR (BEAKER) (test vddd=889) 2.3 <=5.9 RECOMMENDED COUMADIN/WARFARIN INR THERAPY RANGESSTANDARD DOSE: 2.0 - 3.0 Includes: PROPHYLAXIS forvenous thrombosis, systemic embolization; TREATMENT for venous thrombosis and/or pulmonary embolus.HIGH RISK: Target INR is 2.5-3.5 for patients with mechanical heart valves.CBC W/PLT COUNT & AUTO [id number] 03:55:00 Test Item Value Reference Range Comments WHITE BLOOD CELL COUNT (BEAKER) (test nmvh=826) 3.6 K/ L 3.5-10.5 RED BLOOD CELL COUNT (BEAKER) (test uelo=689) 2.48 M/ L 4.63-6.08 HEMOGLOBIN (BEAKER) (test wwoe=464) 7.9 GM/DL 13.7-17.5 HEMATOCRIT (BEAKER) (test uiki=140) 23.7 % 40.1-51.0 MEAN CORPUSCULAR VOLUME (BEAKER) (test oenn=921) 95.6 fL 79.0-92.2 MEAN CORPUSCULAR HEMOGLOBIN (BEAKER) (test 31.9 pg 25.7-32.2 lxfe=783) MEAN CORPUSCULAR HEMOGLOBIN CONC (BEAKER) (test 33.3 GM/DL 32.3-36.5 bvah=080) RED CELL DISTRIBUTION WIDTH (BEAKER) (test 18.8 % 11.6-14.4 iclt=817) PLATELET COUNT (BEAKER) (test cadn=614) 38 K/CU MM 150-450 MEAN PLATELET VOLUME (BEAKER) (test gefr=204) 9.3 fL 9.4-12.4 NUCLEATED RED BLOOD CELLS (BEAKER) (test 0 /100 WBC 0-0 mjgj=903) NEUTROPHILS RELATIVE PERCENT (BEAKER) (test 57 % jgww=782) LYMPHOCYTES RELATIVE PERCENT (BEAKER) (test 15 % surv=473) MONOCYTES RELATIVE PERCENT (BEAKER) (test 22 % krmr=588) EOSINOPHILS RELATIVE PERCENT (BEAKER) (test 4 % qjnb=911) BASOPHILS RELATIVE PERCENT (BEAKER) (test 0 % edyb=940) NEUTROPHILS ABSOLUTE COUNT (BEAKER) (test 2.09 K/ L 1.78-5.38 fwxg=314) LYMPHOCYTES ABSOLUTE COUNT (BEAKER) (test 0.54 K/ L 1.32-3.57 ibus=023) MONOCYTES ABSOLUTE COUNT (BEAKER) (test angh=286) 0.81 K/ L 0.30-0.82 EOSINOPHILS ABSOLUTE COUNT (BEAKER) (test 0.15 K/ L 0.04-0.54 trzv=612) BASOPHILS ABSOLUTE COUNT (BEAKER) (test zwbz=762) 0.01 K/ L 0.01-0.08 IMMATURE GRANULOCYTES-RELATIVE PERCENT (BEAKER) 1 % 0-1 (test myzg=0587) [id number] 18:07:00 Test Item Value Reference Range Comments SODIUM (BEAKER) (test kjvo=950) 132 meq/L 136-145 POTASSIUM (BEAKER) (test 2.9 meq/L 3.5-5.1 Specimen slightly hemolyzed uwyj=573) CHLORIDE (BEAKER) (test 101 meq/L 98-107 hbhs=772) CO2 (BEAKER) (test cazd=316) 18 meq/L 22-29 LACTIC ACID, VENOUS, WHOLE [id number] 16:43:00 Test Item Value Reference Range Comments LACTATE BLOOD VENOUS (2) 1.6 mmol/L 0.5-2.2 Specimen slightly hemolyzed (BEAKER) (test vyae=3409) Effective 02/28/2016: Units/Reference Range ChangeNew: 0.5-2.2 mmol/L Previous: 5 -20 mg/dLSpecimen slightly ictericBODY FLUID CULTURE + GRAM [id number] 12: 08:00 Test Item Value Reference Range Comments CULTURE (BEAKER) (test lpte=7009) No growth GRAM STAIN RESULT (BEAKER) (test <1+ WBCs lssa=7360) GRAM STAIN RESULT (BEAKER) (test No organisms seen vvql=98094) [id number] 08:10:00 Test Item Value Reference Range Comments PHOSPHORUS (BEAKER) (test pjou=165) 2.8 mg/dL 2.3-4.7 [id number] 08:10:00 Test Item Value Reference Range Comments MAGNESIUM (BEAKER) (test esob=684) 2.2 mg/dL 1.6-2.6 COMPREHENSIVE METABOLIC [id number] 08:10:00 Test Item Value Reference Range Comments TOTAL PROTEIN (BEAKER) 6.2 gm/dL 6.0-8.3 (test dtrn=232) ALBUMIN (BEAKER) (test 4.4 g/dL 3.5-5.0 doed=4567) ALKALINE PHOSPHATASE 121 U/L 40-150 (BEAKER) (test savg=374) BILIRUBIN TOTAL (BEAKER) 4.4 mg/dL 0.2-1.2 (test iakn=202) SODIUM (BEAKER) (test 135 meq/L 136-145 dkuo=991) POTASSIUM (BEAKER) (test 2.8 meq/L 3.5-5.1 eeny=221) CHLORIDE (BEAKER) (test 102 meq/L 98-107 amfk=258) CO2 (BEAKER) (test 21 meq/L 22-29 zcrr=953) BLOOD UREA NITROGEN 20 mg/dL 7-21 (BEAKER) (test kdwd=904) CREATININE (BEAKER) (test 1.34 mg/dL 0.57-1.25 tcgn=585) GLUCOSE RANDOM (BEAKER) 132 mg/dL 70-105 (test styd=516) CALCIUM (BEAKER) (test 10.0 mg/dL 8.4-10.2 ptaq=397) AST (SGOT) (BEAKER) (test 16 U/L 5-34 hnjz=008) ALT (SGPT) (BEAKER) (test 6 U/L 6-55 tflr=977) EGFR (BEAKER) (test 56 mL/min/1.73 sq m ESTIMATED GFR IS NOT ecne=8749) ACCURATE CREATININE CLEARANCE IN PREDICTING GLOMERULAR FILTRATION RATE. ESTIMATED GFR IS NOT APPLICABLE FOR DIALYSIS PATIENTS. Specimen slightly ictericHEPATIC FUNCTION [id number] 08:10:00 Test Item Value Reference Range Comments TOTAL PROTEIN (BEAKER) (test mzki=362) 6.2 gm/dL 6.0-8.3 ALBUMIN (BEAKER) (test jacy=4120) 4.4 g/dL 3.5-5.0 BILIRUBIN TOTAL (BEAKER) (test mluw=832) 4.4 mg/dL 0.2-1.2 BILIRUBIN DIRECT (BEAKER) (test rvbb=888) 1.9 mg/dL 0.1-0.5 ALKALINE PHOSPHATASE (BEAKER) (test jfvb=954) 121 U/L 40-150 AST (SGOT) (BEAKER) (test pgpp=249) 16 U/L 5-34 ALT (SGPT) (BEAKER) (test eebh=019) 6 U/L 6-55 Specimen slightly ictericCALCIUM, [id number] 07:20:00 Test Item Value Reference Range Comments CALCIUM IONIZED (BEAKER) (test gadt=502) 1.01 mmol/L 1.12-1.27 PH, BLOOD (BEAKER) (test yqzq=4283) 7.49 CBC W/PLT COUNT & AUTO [id number] 06:59:00 Test Item Value Reference Range Comments WHITE BLOOD CELL COUNT (BEAKER) (test ljrw=977) 4.1 K/ L 3.5-10.5 RED BLOOD CELL COUNT (BEAKER) (test nlzu=819) 2.62 M/ L 4.63-6.08 HEMOGLOBIN (BEAKER) (test ehap=860) 8.2 GM/DL 13.7-17.5 HEMATOCRIT (BEAKER) (test uozb=165) 24.9 % 40.1-51.0 MEAN CORPUSCULAR VOLUME (BEAKER) (test grqw=183) 95.0 fL 79.0-92.2 MEAN CORPUSCULAR HEMOGLOBIN (BEAKER) (test 31.3 pg 25.7-32.2 cxzh=588) MEAN CORPUSCULAR HEMOGLOBIN CONC (BEAKER) (test 32.9 GM/DL 32.3-36.5 ekbm=442) RED CELL DISTRIBUTION WIDTH (BEAKER) (test 18.6 % 11.6-14.4 pghn=682) PLATELET COUNT (BEAKER) (test mpka=221) 38 K/CU MM 150-450 MEAN PLATELET VOLUME (BEAKER) (test jhju=054) 9.3 fL 9.4-12.4 NUCLEATED RED BLOOD CELLS (BEAKER) (test 0 /100 WBC 0-0 sczn=404) NEUTROPHILS RELATIVE PERCENT (BEAKER) (test 66 % yeaw=174) LYMPHOCYTES RELATIVE PERCENT (BEAKER) (test 12 % kkbu=525) MONOCYTES RELATIVE PERCENT (BEAKER) (test 18 % jjqf=087) EOSINOPHILS RELATIVE PERCENT (BEAKER) (test 3 % vxrm=613) BASOPHILS RELATIVE PERCENT (BEAKER) (test 1 % pnmf=309) NEUTROPHILS ABSOLUTE COUNT (BEAKER) (test 2.74 K/ L 1.78-5.38 ftzl=725) LYMPHOCYTES ABSOLUTE COUNT (BEAKER) (test 0.49 K/ L 1.32-3.57 myfw=047) MONOCYTES ABSOLUTE COUNT (BEAKER) (test fmbl=406) 0.75 K/ L 0.30-0.82 EOSINOPHILS ABSOLUTE COUNT (BEAKER) (test 0.11 K/ L 0.04-0.54 txwd=323) BASOPHILS ABSOLUTE COUNT (BEAKER) (test zmxq=465) 0.02 K/ L 0.01-0.08 IMMATURE GRANULOCYTES-RELATIVE PERCENT (BEAKER) 1 % 0-1 (test fpwr=0311) PROTHROMBIN [id number] 06:56:00 Test Item Value Reference Range Comments PROTIME (BEAKER) (test uwpb=665) 24.5 seconds 11.7-14.7 INR (BEAKER) (test qbvw=953) 2.2 <=5.9 RECOMMENDED COUMADIN/WARFARIN INR THERAPY RANGESSTANDARD DOSE: 2.0 - 3.0 Includes: PROPHYLAXIS forvenous thrombosis, systemic embolization; TREATMENT for venous thrombosis and/or pulmonary embolus.HIGH RISK: Target INR is 2.5-3.5 for patients with mechanical heart valves.BODY FLUID CELL COUNT WITH [id number] 18:36:00 Test Item Value Reference Range Comments APPEARANCE FLUID (BEAKER) (test mmrx=457) Hazy Clear COLOR FLUID (BEAKER) (test qynp=995) Yellow Colorless, Straw RBC FLUID (BEAKER) (test xzuz=435) 2000 /cu mm <=1 ADJUSTED WBC FLUID (BEAKER) (test ezmo=7054) 96 /cu mm <=5 LINING CELLS (BEAKER) (test xble=8964) 2 /cu mm <=1 NEUTROPHILS FLUID (BEAKER) (test pgxr=5764) 4 % LYMPHS FLUID (BEAKER) (test qzwo=475) 11 % MONO/MACROPHAGE FLUID (BEAKER) (test oomz=633) 85 % EOSINOPHILS FLUID (BEAKER) (test xshl=961) 0 % BASO FLUID (BEAKER) (test todx=211) 0 % CONTAINER BODY FLUID (BEAKER) (test nkrr=3461) EDTA Tube U/S, [id number] 12:49:00Limit to 4L due to AKIReason for exam:-> ascitesFINAL REPORT Indication: Ascites. Technique: Ultrasound guided paracentesis. Findings:Preliminary ultrasound confirms ascites. A safe window was identified in the midline (suprapubic). The procedure was explained to the patient and informed consent was signed. The skin was marked and prepped in standard sterile fashion. 2% lidocaine was used for local anesthesia. A 5 [place] needle catheter system was advanced into the peritoneal space. 3300 cc clear yellow fluid was taken off.Sample of the fluid was sent to the laboratory. Patient tolerated the procedure well. Impression: Ultrasound guided paracentesis. Signed: Aristeo Xiong MDReport Verified Date/ Time: 05/13/2018 12:49:12 Reading Location: [facility] P006J Ultrasound Reading Room 12: 49 PMCALCIUM, [id number] 05:29:00 Test Item Value Reference Range Comments CALCIUM IONIZED (BEAKER) (test ovvt=904) 1.10 mmol/L 1.12-1.27 PH, BLOOD (BEAKER) (test wuic=4561) 7.35 B-TYPE NATRIURETIC FACTOR (BNP)2018-05-13 04:48:00 Test Item Value Reference Range Comments B-TYPE NATRIURETIC PEPTIDE (BEAKER) (test 274 pg/mL 0-100 kooo=826) [id number] 04:44:00 Test Item Value Reference Range Comments PHOSPHORUS (BEAKER) (test agmb=891) 3.0 mg/dL 2.3-4.7 [id number] 04:44:00 Test Item Value Reference Range Comments MAGNESIUM (BEAKER) (test vmvj=284) 2.0 mg/dL 1.6-2.6 COMPREHENSIVE METABOLIC [id number] 04:44:00 Test Item Value Reference Range Comments TOTAL PROTEIN (BEAKER) 6.2 gm/dL 6.0-8.3 (test rxis=678) ALBUMIN (BEAKER) (test 4.3 g/dL 3.5-5.0 netx=8807) ALKALINE PHOSPHATASE 134 U/L 40-150 (BEAKER) (test bmav=981) BILIRUBIN TOTAL (BEAKER) 4.4 mg/dL 0.2-1.2 (test ygla=305) SODIUM (BEAKER) (test 131 meq/L 136-145 myvs=165) POTASSIUM (BEAKER) (test 3.7 meq/L 3.5-5.1 gjsf=575) CHLORIDE (BEAKER) (test 96 meq/L 98-107 bbcz=255) CO2 (BEAKER) (test 26 meq/L 22-29 vwbo=835) BLOOD UREA NITROGEN 20 mg/dL 7-21 (BEAKER) (test fbmb=386) CREATININE (BEAKER) (test 1.60 mg/dL 0.57-1.25 dqhp=085) GLUCOSE RANDOM (BEAKER) 149 mg/dL 70-105 (test sjrz=109) CALCIUM (BEAKER) (test 10.0 mg/dL 8.4-10.2 mwtg=801) AST (SGOT) (BEAKER) (test 18 U/L 5-34 dwqv=393) ALT (SGPT) (BEAKER) (test 7 U/L 6-55 bnfb=486) EGFR (BEAKER) (test 46 mL/min/1.73 sq m ESTIMATED GFR IS NOT ixqz=8962) ACCURATE CREATININE CLEARANCE IN PREDICTING GLOMERULAR FILTRATION RATE. ESTIMATED GFR IS NOT APPLICABLE FOR DIALYSIS PATIENTS. Specimen slightly ictericHEPATIC FUNCTION [id number] 04:44:00 Test Item Value Reference Range Comments TOTAL PROTEIN (BEAKER) (test iddu=333) 6.2 gm/dL 6.0-8.3 ALBUMIN (BEAKER) (test wara=4445) 4.3 g/dL 3.5-5.0 BILIRUBIN TOTAL (BEAKER) (test pzun=218) 4.4 mg/dL 0.2-1.2 BILIRUBIN DIRECT (BEAKER) (test fsfn=679) 2.4 mg/dL 0.1-0.5 ALKALINE PHOSPHATASE (BEAKER) (test jhtr=938) 134 U/L 40-150 AST (SGOT) (BEAKER) (test tbxa=695) 18 U/L 5-34 ALT (SGPT) (BEAKER) (test vvop=703) 7 U/L 6-55 Specimen slightly ictericPROTHROMBIN [id number] 04:30:00 Test Item Value Reference Range Comments PROTIME (BEAKER) (test joul=935) 23.8 seconds 11.7-14.7 INR (BEAKER) (test xnrc=134) 2.1 <=5.9 RECOMMENDED COUMADIN/WARFARIN INR THERAPY RANGESSTANDARD DOSE: 2.0 - 3.0 Includes: PROPHYLAXIS forvenous thrombosis, systemic embolization; TREATMENT for venous thrombosis and/or pulmonary embolus.HIGH RISK: Target INR is 2.5-3.5 for patients with mechanical heart valves.CBC W/PLT COUNT & AUTO [id number] 04:19:00 Test Item Value Reference Range Comments WHITE BLOOD CELL COUNT (BEAKER) (test ekal=886) 4.0 K/ L 3.5-10.5 RED BLOOD CELL COUNT (BEAKER) (test dost=284) 2.60 M/ L 4.63-6.08 HEMOGLOBIN (BEAKER) (test udhd=615) 8.2 GM/DL 13.7-17.5 HEMATOCRIT (BEAKER) (test iymc=210) 24.6 % 40.1-51.0 MEAN CORPUSCULAR VOLUME (BEAKER) (test kvgv=377) 94.6 fL 79.0-92.2 MEAN CORPUSCULAR HEMOGLOBIN (BEAKER) (test 31.5 pg 25.7-32.2 rmgg=069) MEAN CORPUSCULAR HEMOGLOBIN CONC (BEAKER) (test 33.3 GM/DL 32.3-36.5 vwyc=890) RED CELL DISTRIBUTION WIDTH (BEAKER) (test 18.1 % 11.6-14.4 uand=897) PLATELET COUNT (BEAKER) (test vubi=787) 46 K/CU MM 150-450 MEAN PLATELET VOLUME (BEAKER) (test nrmp=956) 9.1 fL 9.4-12.4 NUCLEATED RED BLOOD CELLS (BEAKER) (test 0 /100 WBC 0-0 byuq=746) NEUTROPHILS RELATIVE PERCENT (BEAKER) (test 62 % bisu=155) LYMPHOCYTES RELATIVE PERCENT (BEAKER) (test 13 % chvm=037) MONOCYTES RELATIVE PERCENT (BEAKER) (test 21 % rujl=438) EOSINOPHILS RELATIVE PERCENT (BEAKER) (test 3 % ytjt=980) BASOPHILS RELATIVE PERCENT (BEAKER) (test 0 % nsln=219) NEUTROPHILS ABSOLUTE COUNT (BEAKER) (test 2.49 K/ L 1.78-5.38 wydr=892) LYMPHOCYTES ABSOLUTE COUNT (BEAKER) (test 0.53 K/ L 1.32-3.57 dugy=017) MONOCYTES ABSOLUTE COUNT (BEAKER) (test gvtb=477) 0.86 K/ L 0.30-0.82 EOSINOPHILS ABSOLUTE COUNT (BEAKER) (test 0.10 K/ L 0.04-0.54 nmgf=561) BASOPHILS ABSOLUTE COUNT (BEAKER) (test ajif=248) 0.01 K/ L 0.01-0.08 IMMATURE GRANULOCYTES-RELATIVE PERCENT (BEAKER) 1 % 0-1 (test ipct=1425) TISSUE [id number] 14:55:00Surgical Pathology Report Case: [id number] Authorizing Provider: Karina Rain MD Collected: 05/08/20181999 Ordering Location: [address] Received: 05/11/2018 0837 Service Pathologist: Jesús Craig MD Specimen: Bone L3 VERTEBRAL BODYBONE BIOPSY:BONE AND BONE MARROW, NEGATIVE FOR MALIGNANCY.SEE DIAGNOSTIC COMMENT. Signing Pathologist Direct Phone Line: [phone] signed by Jesús Craig MD on 05/12/2018 [...] as thesampled material may not be fully sales representative consultant. This case was discussed with Dr. Andrea Mason, commodities manager.[id number], [id number], [id number], [id number] fracture of body thoracic vertebralL3 vertebral body [...] and its performance characteristics determined by [facility], Pathology Laboratory. It has not [...] clinical laboratory testing.RAD, CHEST, 1 VIEW, NON [id number] 13:56:00Reason for exam:->edemaShould this be performed at the bedside?->YesFINAL REPORT Chest one view compared to December 30 Discussion: Ill-defined bilateral airspace opacities are worse since the previous study although this may reflect a lesser inspiratory effort. No gross effusion or pneumothorax. Signed: Karina Pugh Verified Date/Time : 05/12/2018 13:56:44 Reading Location: [address] Consult Reading Room CALCIUM, [id number] 06:58:00 Test Item Value Reference Range Comments CALCIUM IONIZED (BEAKER) (test sbps=895) 1.11 mmol/L 1.12-1.27 PH, BLOOD (BEAKER) (test qrtu=0915) 7.36 [id number] 06:31:00 Test Item Value Reference Range Comments PHOSPHORUS (BEAKER) (test qrjn=467) 2.9 mg/dL 2.3-4.7 [id number] 06:31:00 Test Item Value Reference Range Comments MAGNESIUM (BEAKER) (test khfv=598) 1.9 mg/dL 1.6-2.6 COMPREHENSIVE METABOLIC [id number] 06:31:00 Test Item Value Reference Range Comments TOTAL PROTEIN (BEAKER) 5.8 gm/dL 6.0-8.3 (test lroi=299) ALBUMIN (BEAKER) (test 4.0 g/dL 3.5-5.0 ixcl=1996) ALKALINE PHOSPHATASE 124 U/L 40-150 (BEAKER) (test groe=487) BILIRUBIN TOTAL (BEAKER) 4.3 mg/dL 0.2-1.2 (test madx=603) SODIUM (BEAKER) (test 128 meq/L 136-145 fuok=340) POTASSIUM (BEAKER) (test 3.9 meq/L 3.5-5.1 ixmg=419) CHLORIDE (BEAKER) (test 92 meq/L 98-107 qpuv=713) CO2 (BEAKER) (test 26 meq/L 22-29 rskm=570) BLOOD UREA NITROGEN 21 mg/dL 7-21 (BEAKER) (test ycaf=579) CREATININE (BEAKER) (test 1.54 mg/dL 0.57-1.25 gbbd=640) GLUCOSE RANDOM (BEAKER) 113 mg/dL 70-105 (test qrom=404) CALCIUM (BEAKER) (test 9.5 mg/dL 8.4-10.2 cqbi=629) AST (SGOT) (BEAKER) (test 16 U/L 5-34 clgz=572) ALT (SGPT) (BEAKER) (test 6 U/L 6-55 jhuj=102) EGFR (BEAKER) (test 48 mL/min/1.73 sq m ESTIMATED GFR IS NOT vpbt=9808) ACCURATE CREATININE CLEARANCE IN PREDICTING GLOMERULAR FILTRATION RATE. ESTIMATED GFR IS NOT APPLICABLE FOR DIALYSIS PATIENTS. Specimen slightly ictericHEPATIC FUNCTION [id number] 06:31:00 Test Item Value Reference Range Comments TOTAL PROTEIN (BEAKER) (test bheq=669) 5.8 gm/dL 6.0-8.3 ALBUMIN (BEAKER) (test ajhv=2578) 4.0 g/dL 3.5-5.0 BILIRUBIN TOTAL (BEAKER) (test hltc=815) 4.3 mg/dL 0.2-1.2 BILIRUBIN DIRECT (BEAKER) (test qeuq=670) 2.3 mg/dL 0.1-0.5 ALKALINE PHOSPHATASE (BEAKER) (test silp=252) 124 U/L 40-150 AST (SGOT) (BEAKER) (test uhno=273) 16 U/L 5-34 ALT (SGPT) (BEAKER) (test kmtd=186) 6 U/L 6-55 Specimen slightly ictericPROTHROMBIN [id number] 06:16:00 Test Item Value Reference Range Comments PROTIME (BEAKER) (test ajuz=794) 22.3 seconds 11.7-14.7 INR (BEAKER) (test logt=573) 2.0 <=5.9 RECOMMENDED COUMADIN/WARFARIN INR THERAPY RANGESSTANDARD DOSE: 2.0 - 3.0 Includes: PROPHYLAXIS forvenous thrombosis, systemic embolization; TREATMENT for venous thrombosis and/or pulmonary embolus.HIGH RISK: Target INR is 2.5-3.5 for patients with mechanical heart valves.CBC W/PLT COUNT & AUTO [id number] 06:00:00 Test Item Value Reference Range Comments WHITE BLOOD CELL COUNT (BEAKER) (test bhfx=095) 4.3 K/ L 3.5-10.5 RED BLOOD CELL COUNT (BEAKER) (test dwox=311) 2.68 M/ L 4.63-6.08 HEMOGLOBIN (BEAKER) (test ssel=096) 8.3 GM/DL 13.7-17.5 HEMATOCRIT (BEAKER) (test stmy=164) 25.0 % 40.1-51.0 MEAN CORPUSCULAR VOLUME (BEAKER) (test epqg=442) 93.3 fL 79.0-92.2 MEAN CORPUSCULAR HEMOGLOBIN (BEAKER) (test 31.0 pg 25.7-32.2 qxii=220) MEAN CORPUSCULAR HEMOGLOBIN CONC (BEAKER) (test 33.2 GM/DL 32.3-36.5 iszq=890) RED CELL DISTRIBUTION WIDTH (BEAKER) (test 17.4 % 11.6-14.4 dbtc=936) PLATELET COUNT (BEAKER) (test onws=718) 57 K/CU MM 150-450 MEAN PLATELET VOLUME (BEAKER) (test dgqf=885) 9.3 fL 9.4-12.4 NUCLEATED RED BLOOD CELLS (BEAKER) (test 0 /100 WBC 0-0 cmjo=244) NEUTROPHILS RELATIVE PERCENT (BEAKER) (test 61 % ulxj=714) LYMPHOCYTES RELATIVE PERCENT (BEAKER) (test 14 % awmd=365) MONOCYTES RELATIVE PERCENT (BEAKER) (test 17 % otyw=935) EOSINOPHILS RELATIVE PERCENT (BEAKER) (test 7 % zuxf=345) BASOPHILS RELATIVE PERCENT (BEAKER) (test 1 % hxcc=382) NEUTROPHILS ABSOLUTE COUNT (BEAKER) (test 2.62 K/ L 1.78-5.38 itot=050) LYMPHOCYTES ABSOLUTE COUNT (BEAKER) (test 0.59 K/ L 1.32-3.57 wukz=797) MONOCYTES ABSOLUTE COUNT (BEAKER) (test aymk=803) 0.73 K/ L 0.30-0.82 EOSINOPHILS ABSOLUTE COUNT (BEAKER) (test 0.29 K/ L 0.04-0.54 bxre=456) BASOPHILS ABSOLUTE COUNT (BEAKER) (test oqer=095) 0.02 K/ L 0.01-0.08 IMMATURE GRANULOCYTES-RELATIVE PERCENT (BEAKER) 1 % 0-1 (test mbsj=4243) BLOOD [id number] 00:00:00 Test Item Value Reference Range Comments CULTURE (BEAKER) (test igjx=2739) No growth in 5 days BLOOD [id number] 00:00:00 Test Item Value Reference Range Comments CULTURE (BEAKER) (test cunj=3553) No growth in 5 days OSMOLALITY, [id number] 18:16:00 Test Item Value Reference Range Comments OSMOLALITY URINE (BEAKER) (test vfif=917) 312 mOsm/kg 40-1400 BODY FLUID CELL COUNT WITH [id number] 17:17:00 Test Item Value Reference Range Comments APPEARANCE FLUID (BEAKER) (test fsxa=224) Clear Clear COLOR FLUID (BEAKER) (test vbvn=093) Yellow Colorless, Straw RBC FLUID (BEAKER) (test brfk=450) 150 /cu mm <=1 ADJUSTED WBC FLUID (BEAKER) (test okdq=7839) 72 /cu mm <=5 LINING CELLS (BEAKER) (test rdkj=6168) 2 /cu mm <=1 NEUTROPHILS FLUID (BEAKER) (test evbm=3525) 3 % LYMPHS FLUID (BEAKER) (test jdcy=305) 28 % MONO/MACROPHAGE FLUID (BEAKER) (test qfql=554) 68 % EOSINOPHILS FLUID (BEAKER) (test hkdc=495) 1 % BASO FLUID (BEAKER) (test hobr=455) 0 % CONTAINER BODY FLUID (BEAKER) (test ryqq=2942) EDTA Tube SODIUM, RANDOM [id number] 17:09:00 Test Item Value Reference Range Comments SODIUM URINE (BEAKER) (test rgqm=266) < meq/L Reference Range: No NormalsURINALYSIS W/ [id number] 17:08:00 Test Item Value Reference Range Comments COLOR (BEAKER) (test azmo=023) Yellow CLARITY (BEAKER) (test kzli=781) Clear SPECIFIC GRAVITY UA (BEAKER) (test klxy=949) 1.012 1.001-1.035 PH UA (BEAKER) (test ymjr=804) 5.5 5.0-8.0 PROTEIN UA (BEAKER) (test kmbr=232) Negative Negative GLUCOSE UA (BEAKER) (test snof=205) Negative Negative KETONES UA (BEAKER) (test vxvq=229) Negative Negative BILIRUBIN UA (BEAKER) (test wrdq=285) Negative Negative BLOOD UA (BEAKER) (test dszj=483) Negative Negative NITRITE UA (BEAKER) (test uuzj=320) Negative Negative LEUKOCYTE ESTERASE UA (BEAKER) (test qick=150) Negative Negative UROBILINOGEN UA (BEAKER) (test auhu=594) 2.0 mg/dL 0.2-1.0 RBC UA (BEAKER) (test avjd=725) 0 /HPF WBC UA (BEAKER) (test trvg=108) 1 /HPF MUCUS (BEAKER) (test xawr=8589) Rare HYALINE CASTS (BEAKER) (test edew=641) 15 /LPF SOURCE(BEAKER) (test yahe=9661) CREATININE, RANDOM [id number] 17:05:00 Test Item Value Reference Range Comments CREATININE URINE ([place]) (test ihhn=365) 116.1 mg/dL Reference Range: No NormalsPROTEIN, RANDOM [id number] 17:05:00 Test Item Value Reference Range Comments PROTEIN, URINE (BEAKER) (test vquv=6741) 7 mg/dL 0-14 RAD, SPINE, THORACIC, 2 [id number] 13:53:00Reason for exam:->back pain, s/p kyphoplastyFINAL REPORT [...] Aristeo Xiong Verified Date/Time: 13:53:06 Reading Location: [facility] [place] Reading Room RAD, SPINE, LUMBAR, 2 OR 3 [id number] 13:53:00Reason for exam:->back pain, s/p kyphoplastyFINAL REPORT [...] Aristeo Xiongort Verified Date/Time: 13:53:06 Reading Location: [facility] [place] Reading Room U/S, [id number] 12:52:00Limit to 4L due to AKIReason for exam:-> ascitesShould this be performed at the bedside?->NoFINAL REPORT Ultrasound guided paracentesis, 05/11/2018. Clinical History: Ascites. Sedation: None. Junior Linux Administrator: Elle. Die Cast Supervisor: None. Estimated Blood Loss: < 1 cc. [...] was achieved with 1% lidocaine, a 5 [place] one-step catheter was advanced into the peritoneal cavity under ultrasound guidance. After completion of drainage, the catheter was removed. There was no evidence of complication. Patient Disposition: The patient was discharged from the ultrasound department after the paracentesis, in good condition. Impression: Successful ultrasound guided paracentesis. Signed: Elizabeth Almeidaort Verified Date/Time: 05/11/2018 12:52:57 Reading Location: [address] Ultrasound Reading Room MISCELLANEOUS LAB [id number] 10:45:00 Test Item Value Reference Range Comments SCAN RESULT (test tdpq=[id number]) [id number] 07:31:00 Test Item Value Reference Range Comments PHOSPHORUS (BEAKER) (test isvp=065) 2.7 mg/dL 2.3-4.7 [id number] 07:31:00 Test Item Value Reference Range Comments MAGNESIUM (BEAKER) (test tmzy=928) 1.8 mg/dL 1.6-2.6 COMPREHENSIVE METABOLIC [id number] 07:31:00 Test Item Value Reference Range Comments TOTAL PROTEIN (BEAKER) 5.5 gm/dL 6.0-8.3 (test ifkz=149) ALBUMIN (BEAKER) (test 3.5 g/dL 3.5-5.0 lcfu=3978) ALKALINE PHOSPHATASE 118 U/L 40-150 (BEAKER) (test dvmj=365) BILIRUBIN TOTAL (BEAKER) 5.1 mg/dL 0.2-1.2 (test wfdq=544) SODIUM (BEAKER) (test 123 meq/L 136-145 irnq=929) POTASSIUM (BEAKER) (test 4.1 meq/L 3.5-5.1 pghw=456) CHLORIDE (BEAKER) (test 91 meq/L 98-107 veoq=218) CO2 (BEAKER) (test 25 meq/L 22-29 ktwm=360) BLOOD UREA NITROGEN 21 mg/dL 7-21 (BEAKER) (test nvhe=572) CREATININE (BEAKER) (test 1.59 mg/dL 0.57-1.25 wvly=081) GLUCOSE RANDOM (BEAKER) 121 mg/dL 70-105 (test ijmh=716) CALCIUM (BEAKER) (test 9.4 mg/dL 8.4-10.2 wcsv=485) AST (SGOT) (BEAKER) (test 17 U/L 5-34 ozvy=837) ALT (SGPT) (BEAKER) (test 8 U/L 6-55 bpnc=845) EGFR (BEAKER) (test 46 mL/min/1.73 sq m ESTIMATED GFR IS NOT hbqf=5424) ACCURATE CREATININE CLEARANCE IN PREDICTING GLOMERULAR FILTRATION RATE. ESTIMATED GFR IS NOT APPLICABLE FOR DIALYSIS PATIENTS. Specimen moderately ictericHEPATIC FUNCTION [id number] 07:31:00 Test Item Value Reference Range Comments TOTAL PROTEIN (BEAKER) (test huuf=416) 5.5 gm/dL 6.0-8.3 ALBUMIN (BEAKER) (test fsew=1705) 3.5 g/dL 3.5-5.0 BILIRUBIN TOTAL (BEAKER) (test nfgm=047) 5.1 mg/dL 0.2-1.2 BILIRUBIN DIRECT (BEAKER) (test vgpx=200) 2.3 mg/dL 0.1-0.5 ALKALINE PHOSPHATASE (BEAKER) (test goru=320) 118 U/L 40-150 AST (SGOT) (BEAKER) (test ilen=652) 17 U/L 5-34 ALT (SGPT) (BEAKER) (test rync=540) 8 U/L 6-55 Specimen moderately ictericPROTHROMBIN [id number] 07:17:00 Test Item Value Reference Range Comments PROTIME (BEAKER) (test jwdm=883) 23.8 seconds 11.7-14.7 INR (BEAKER) (test qnie=314) 2.1 <=5.9 RECOMMENDED COUMADIN/WARFARIN INR THERAPY RANGESSTANDARD DOSE: 2.0 - 3.0 Includes: PROPHYLAXIS forvenous thrombosis, systemic embolization; TREATMENT for venous thrombosis and/or pulmonary embolus.HIGH RISK: Target INR is 2.5-3.5 for patients with mechanical heart valves.CBC W/PLT COUNT & AUTO [id number] 07:15:00 Test Item Value Reference Range Comments WHITE BLOOD CELL COUNT (BEAKER) (test wezj=342) 4.4 K/ L 3.5-10.5 RED BLOOD CELL COUNT (BEAKER) (test dnrz=116) 2.52 M/ L 4.63-6.08 HEMOGLOBIN (BEAKER) (test dbqn=946) 7.9 GM/DL 13.7-17.5 HEMATOCRIT (BEAKER) (test pfti=739) 23.7 % 40.1-51.0 MEAN CORPUSCULAR VOLUME (BEAKER) (test iwwl=086) 94.0 fL 79.0-92.2 MEAN CORPUSCULAR HEMOGLOBIN (BEAKER) (test 31.3 pg 25.7-32.2 hojh=081) MEAN CORPUSCULAR HEMOGLOBIN CONC (BEAKER) (test 33.3 GM/DL 32.3-36.5 juhl=348) RED CELL DISTRIBUTION WIDTH (BEAKER) (test 17.6 % 11.6-14.4 dftd=163) PLATELET COUNT (BEAKER) (test ddvj=227) 52 K/CU MM 150-450 MEAN PLATELET VOLUME (BEAKER) (test kqgk=044) 9.2 fL 9.4-12.4 NUCLEATED RED BLOOD CELLS (BEAKER) (test 0 /100 WBC 0-0 igvw=993) NEUTROPHILS RELATIVE PERCENT (BEAKER) (test 62 % rxaf=666) LYMPHOCYTES RELATIVE PERCENT (BEAKER) (test 10 % ldtz=344) MONOCYTES RELATIVE PERCENT (BEAKER) (test 19 % tcwg=731) EOSINOPHILS RELATIVE PERCENT (BEAKER) (test 8 % lkfw=370) BASOPHILS RELATIVE PERCENT (BEAKER) (test 0 % hqby=220) NEUTROPHILS ABSOLUTE COUNT (BEAKER) (test 2.72 K/ L 1.78-5.38 jyzh=734) LYMPHOCYTES ABSOLUTE COUNT (BEAKER) (test 0.42 K/ L 1.32-3.57 mgnl=135) MONOCYTES ABSOLUTE COUNT (BEAKER) (test ttvq=435) 0.84 K/ L 0.30-0.82 EOSINOPHILS ABSOLUTE COUNT (BEAKER) (test 0.34 K/ L 0.04-0.54 srus=781) BASOPHILS ABSOLUTE COUNT (BEAKER) (test jpyp=885) 0.00 K/ L 0.01-0.08 IMMATURE GRANULOCYTES-RELATIVE PERCENT (BEAKER) 1 % 0-1 (test blou=0405) CALCIUM, [id number] 07:09:00 Test Item Value Reference Range Comments CALCIUM IONIZED (BEAKER) (test obqz=985) 1.09 mmol/L 1.12-1.27 PH, BLOOD (BEAKER) (test wxzo=3334) 7.36 BASIC METABOLIC [id number] 17:49:00 Test Item Value Reference Range Comments SODIUM (BEAKER) (test 124 meq/L 136-145 roqn=149) POTASSIUM (BEAKER) (test 3.8 meq/L 3.5-5.1 xeyw=572) CHLORIDE (BEAKER) (test 91 meq/L 98-107 qyvj=286) CO2 (BEAKER) (test 22 meq/L 22-29 tskh=896) BLOOD UREA NITROGEN 19 mg/dL 7-21 (BEAKER) (test tqej=127) CREATININE (BEAKER) (test 1.49 mg/dL 0.57-1.25 vhzz=553) GLUCOSE RANDOM (BEAKER) 105 mg/dL 70-105 (test hxdh=177) CALCIUM (BEAKER) (test 9.3 mg/dL 8.4-10.2 vvxi=384) EGFR (BEAKER) (test 50 mL/min/1.73 sq m ESTIMATED GFR IS NOT ikws=7852) ACCURATE CREATININE CLEARANCE IN PREDICTING GLOMERULAR FILTRATION RATE. ESTIMATED GFR IS NOT APPLICABLE FOR DIALYSIS PATIENTS. Call [id number] slightly ictericCALCIUM, [id number] 06:59:00 Test Item Value Reference Range Comments CALCIUM IONIZED (BEAKER) (test mkqx=146) 1.00 mmol/L 1.12-1.27 PH, BLOOD (BEAKER) (test tdvs=3790) 7.47 [id number] 05:42:00 Test Item Value Reference Range Comments PHOSPHORUS (BEAKER) (test rtun=278) 2.7 mg/dL 2.3-4.7 [id number] 05:42:00 Test Item Value Reference Range Comments MAGNESIUM (BEAKER) (test fpav=318) 1.7 mg/dL 1.6-2.6 HEPATIC FUNCTION [id number] 05:42:00 Test Item Value Reference Range Comments TOTAL PROTEIN (BEAKER) (test qxqp=324) 5.2 gm/dL 6.0-8.3 ALBUMIN (BEAKER) (test angj=4625) 3.5 g/dL 3.5-5.0 BILIRUBIN TOTAL (BEAKER) (test vbav=442) 3.4 mg/dL 0.2-1.2 BILIRUBIN DIRECT (BEAKER) (test qakx=165) 1.8 mg/dL 0.1-0.5 ALKALINE PHOSPHATASE (BEAKER) (test oxca=992) 106 U/L 40-150 AST (SGOT) (BEAKER) (test gioa=308) 15 U/L 5-34 ALT (SGPT) (BEAKER) (test wutl=358) 7 U/L 6-55 Specimen slightly ictericPROTHROMBIN [id number] 05:22:00 Test Item Value Reference Range Comments PROTIME (BEAKER) (test gxvh=978) 22.6 seconds 11.7-14.7 INR (BEAKER) (test fwat=430) 2.0 <=5.9 RECOMMENDED COUMADIN/WARFARIN INR THERAPY RANGESSTANDARD DOSE: 2.0 - 3.0 Includes: PROPHYLAXIS forvenous thrombosis, systemic embolization; TREATMENT for venous thrombosis and/or pulmonary embolus.HIGH RISK: Target INR is 2.5-3.5 for patients with mechanical heart valves.CBC W/PLT COUNT & AUTO [id number] 05:10:00 Test Item Value Reference Range Comments WHITE BLOOD CELL COUNT (BEAKER) (test pdmn=741) 5.6 K/ L 3.5-10.5 RED BLOOD CELL COUNT (BEAKER) (test fwrb=777) 2.09 M/ L 4.63-6.08 HEMOGLOBIN (BEAKER) (test crme=569) 6.5 GM/DL 13.7-17.5 HEMATOCRIT (BEAKER) (test gdkd=389) 19.8 % 40.1-51.0 MEAN CORPUSCULAR VOLUME (BEAKER) (test vdyo=857) 94.7 fL 79.0-92.2 MEAN CORPUSCULAR HEMOGLOBIN (BEAKER) (test 31.1 pg 25.7-32.2 inls=612) MEAN CORPUSCULAR HEMOGLOBIN CONC (BEAKER) (test 32.8 GM/DL 32.3-36.5 aynd=263) RED CELL DISTRIBUTION WIDTH (BEAKER) (test 17.3 % 11.6-14.4 opzp=925) PLATELET COUNT (BEAKER) (test qliw=291) 57 K/CU MM 150-450 MEAN PLATELET VOLUME (BEAKER) (test mtqv=500) 8.9 fL 9.4-12.4 NUCLEATED RED BLOOD CELLS (BEAKER) (test 0 /100 WBC 0-0 xhrw=352) NEUTROPHILS RELATIVE PERCENT (BEAKER) (test 71 % ddvd=261) LYMPHOCYTES RELATIVE PERCENT (BEAKER) (test 9 % vdic=158) MONOCYTES RELATIVE PERCENT (BEAKER) (test 16 % ebuc=445) EOSINOPHILS RELATIVE PERCENT (BEAKER) (test 3 % xdbw=328) BASOPHILS RELATIVE PERCENT (BEAKER) (test 0 % fjbx=233) NEUTROPHILS ABSOLUTE COUNT (BEAKER) (test 3.93 K/ L 1.78-5.38 bkpx=259) LYMPHOCYTES ABSOLUTE COUNT (BEAKER) (test 0.52 K/ L 1.32-3.57 minz=904) MONOCYTES ABSOLUTE COUNT (BEAKER) (test qhva=516) 0.87 K/ L 0.30-0.82 EOSINOPHILS ABSOLUTE COUNT (BEAKER) (test 0.19 K/ L 0.04-0.54 fbvu=905) BASOPHILS ABSOLUTE COUNT (BEAKER) (test hcvt=031) 0.01 K/ L 0.01-0.08 IMMATURE GRANULOCYTES-RELATIVE PERCENT (BEAKER) 1 % 0-1 (test viuw=6741) HEPATIC FUNCTION [id number] 11:05:00 Test Item Value Reference Range Comments TOTAL PROTEIN (BEAKER) (test ifev=769) 5.7 gm/dL 6.0-8.3 ALBUMIN (BEAKER) (test siuq=7280) 3.9 g/dL 3.5-5.0 BILIRUBIN TOTAL (BEAKER) (test fklt=310) 4.9 mg/dL 0.2-1.2 BILIRUBIN DIRECT (BEAKER) (test thvb=338) 2.0 mg/dL 0.1-0.5 ALKALINE PHOSPHATASE (BEAKER) (test rqpd=139) 98 U/L 40-150 AST (SGOT) (BEAKER) (test funf=615) 19 U/L 5-34 ALT (SGPT) (BEAKER) (test mayw=595) 8 U/L 6-55 Specimen moderately ictericBASIC METABOLIC [id number] 10:06:00 Test Item Value Reference Range Comments SODIUM (BEAKER) (test 132 meq/L 136-145 vhxq=542) POTASSIUM (BEAKER) (test 5.0 meq/L 3.5-5.1 mahj=640) CHLORIDE (BEAKER) (test 97 meq/L 98-107 ydyc=815) CO2 (BEAKER) (test 25 meq/L 22-29 ueok=866) BLOOD UREA NITROGEN 17 mg/dL 7-21 (BEAKER) (test arlx=632) CREATININE (BEAKER) (test 1.33 mg/dL 0.57-1.25 rtei=498) GLUCOSE RANDOM (BEAKER) 181 mg/dL 70-105 (test wcgb=321) CALCIUM (BEAKER) (test 9.4 mg/dL 8.4-10.2 woly=276) EGFR (BEAKER) (test 56 mL/min/1.73 sq m ESTIMATED GFR IS NOT szae=2506) ACCURATE CREATININE CLEARANCE IN PREDICTING GLOMERULAR FILTRATION RATE. ESTIMATED GFR IS NOT APPLICABLE FOR DIALYSIS PATIENTS. Specimen moderately ictericCBC W/PLT COUNT & AUTO [id number] 07: 45:00 Test Item Value Reference Range Comments WHITE BLOOD CELL COUNT (BEAKER) (test zjuo=811) 3.4 K/ L 3.5-10.5 RED BLOOD CELL COUNT (BEAKER) (test mqeu=958) 2.26 M/ L 4.63-6.08 HEMOGLOBIN (BEAKER) (test pvph=983) 7.0 GM/DL 13.7-17.5 HEMATOCRIT (BEAKER) (test btum=200) 21.6 % 40.1-51.0 MEAN CORPUSCULAR VOLUME (BEAKER) (test jknn=696) 95.6 fL 79.0-92.2 MEAN CORPUSCULAR HEMOGLOBIN (BEAKER) (test 31.0 pg 25.7-32.2 yzzq=666) MEAN CORPUSCULAR HEMOGLOBIN CONC (BEAKER) (test 32.4 GM/DL 32.3-36.5 bhef=512) RED CELL DISTRIBUTION WIDTH (BEAKER) (test 17.3 % 11.6-14.4 orzt=197) PLATELET COUNT (BEAKER) (test ndjr=117) 66 K/CU MM 150-450 MEAN PLATELET VOLUME (BEAKER) (test nate=920) 9.8 fL 9.4-12.4 NUCLEATED RED BLOOD CELLS (BEAKER) (test 0 /100 WBC 0-0 gapo=301) NEUTROPHILS RELATIVE PERCENT (BEAKER) (test 87 % kexg=607) LYMPHOCYTES RELATIVE PERCENT (BEAKER) (test 7 % qbfh=559) MONOCYTES RELATIVE PERCENT (BEAKER) (test 5 % maoo=256) EOSINOPHILS RELATIVE PERCENT (BEAKER) (test 0 % ivjq=978) BASOPHILS RELATIVE PERCENT (BEAKER) (test 0 % rkbh=137) NEUTROPHILS ABSOLUTE COUNT (BEAKER) (test 2.94 K/ L 1.78-5.38 naou=160) LYMPHOCYTES ABSOLUTE COUNT (BEAKER) (test 0.23 K/ L 1.32-3.57 gbwp=658) MONOCYTES ABSOLUTE COUNT (BEAKER) (test wwwf=610) 0.17 K/ L 0.30-0.82 EOSINOPHILS ABSOLUTE COUNT (BEAKER) (test 0.00 K/ L 0.04-0.54 hvzt=708) BASOPHILS ABSOLUTE COUNT (BEAKER) (test isjw=036) 0.00 K/ L 0.01-0.08 IMMATURE GRANULOCYTES-RELATIVE PERCENT (BEAKER) 1 % 0-1 (test rhrv=1743) PROTHROMBIN TIME/[id number] 06:06:00 Test Item Value Reference Range Comments PROTIME (BEAKER) (test tuen=410) 19.1 seconds 11.7-14.7 INR (BEAKER) (test rvui=296) 1.6 <=5.9 RECOMMENDED COUMADIN/WARFARIN INR THERAPY RANGESSTANDARD DOSE: 2.0 - 3.0 Includes: PROPHYLAXIS forvenous thrombosis, systemic embolization; TREATMENT for venous thrombosis and/or pulmonary embolus.HIGH RISK: Target INR is 2.5-3.5 for patients with mechanical heart valves.PT/[id number] 15:35:00 Test Item Value Reference Range Comments PROTIME (BEAKER) (test mbkf=979) 20.3 seconds 11.7-14.7 INR (BEAKER) (test pjuf=590) 1.7 <=5.9 PARTIAL THROMBOPLASTIN TIME (BEAKER) (test 46.2 seconds 22.5-36.0 hihv=789) RECOMMENDED COUMADIN/WARFARIN INR THERAPY RANGESSTANDARD DOSE: 2.0 - 3.0 Includes: PROPHYLAXIS forvenous thrombosis, systemic embolization; TREATMENT for venous thrombosis and/or pulmonary embolus.HIGH RISK: Target INR is 2.5-3.5 for patients with mechanical heart valves.30 minutes after administration of Jtvinll50 minutes after administration of KcentraPROTHROMBIN TIME/[id number] 15:33:00 Test Item Value Reference Range Comments PROTIME (BEAKER) (test vhye=703) 20.1 seconds 11.7-14.7 INR (BEAKER) (test ohue=011) 1.7 <=5.9 RECOMMENDED COUMADIN/WARFARIN INR THERAPY RANGESSTANDARD DOSE: 2.0 - 3.0 Includes: PROPHYLAXIS forvenous thrombosis, systemic embolization; TREATMENT for venous thrombosis and/or pulmonary embolus.HIGH RISK: Target INR is 2.5-3.5 for patients with mechanical heart valves.Please draw 30 mins after Kcentra doseBODY FLUID CULTURE + GRAM [id number] 11:29:00 Test Item Value Reference Range Comments CULTURE (BEAKER) (test jgfi=1570) No growth GRAM STAIN RESULT (BEAKER) (test <1+ WBCs yqku=3328) GRAM STAIN RESULT (BEAKER) (test No organisms seen jreb=55588) CT, [id number] 10:30:00FINAL REPORT HISTORY : r/o intra abdominal [...] MDReport Verified Date/Time: 05/08/2018 10:30:57 Reading Location: [facility] Diagnostic Imaging Reading Room - [place] [address] CBC W/PLT COUNT & AUTO [id number] 07:27:00 Test Item Value Reference Range Comments WHITE BLOOD CELL COUNT (BEAKER) (test ozyu=917) 3.1 K/ L 3.5-10.5 RED BLOOD CELL COUNT (BEAKER) (test opus=767) 2.27 M/ L 4.63-6.08 HEMOGLOBIN (BEAKER) (test wbiz=098) 7.1 GM/DL 13.7-17.5 HEMATOCRIT (BEAKER) (test dpcc=656) 21.4 % 40.1-51.0 MEAN CORPUSCULAR VOLUME (BEAKER) (test bvwt=827) 94.3 fL 79.0-92.2 MEAN CORPUSCULAR HEMOGLOBIN (BEAKER) (test 31.3 pg 25.7-32.2 nhnw=242) MEAN CORPUSCULAR HEMOGLOBIN CONC (BEAKER) (test 33.2 GM/DL 32.3-36.5 vrcu=107) RED CELL DISTRIBUTION WIDTH (BEAKER) (test 17.5 % 11.6-14.4 korb=541) PLATELET COUNT (BEAKER) (test qinx=248) 43 K/CU MM 150-450 MEAN PLATELET VOLUME (BEAKER) (test pkgn=075) 8.7 fL 9.4-12.4 NUCLEATED RED BLOOD CELLS (BEAKER) (test 0 /100 WBC 0-0 erkx=723) NEUTROPHILS RELATIVE PERCENT (BEAKER) (test 60 % tgin=737) LYMPHOCYTES RELATIVE PERCENT (BEAKER) (test 16 % oceq=360) MONOCYTES RELATIVE PERCENT (BEAKER) (test 17 % xlle=393) EOSINOPHILS RELATIVE PERCENT (BEAKER) (test 7 % xihp=482) BASOPHILS RELATIVE PERCENT (BEAKER) (test 0 % ekrc=530) NEUTROPHILS ABSOLUTE COUNT (BEAKER) (test 1.85 K/ L 1.78-5.38 psuq=005) LYMPHOCYTES ABSOLUTE COUNT (BEAKER) (test 0.48 K/ L 1.32-3.57 zszi=912) MONOCYTES ABSOLUTE COUNT (BEAKER) (test goyg=352) 0.54 K/ L 0.30-0.82 EOSINOPHILS ABSOLUTE COUNT (BEAKER) (test 0.22 K/ L 0.04-0.54 dxav=319) BASOPHILS ABSOLUTE COUNT (BEAKER) (test tmqi=215) 0.00 K/ L 0.01-0.08 IMMATURE GRANULOCYTES-RELATIVE PERCENT (BEAKER) 0 % 0-1 (test kbiz=5123) CBC W/PLT COUNT & AUTO [id number] 07:26:00 Test Item Value Reference Range Comments WHITE BLOOD CELL COUNT (BEAKER) (test lfmp=501) 2.9 K/ L 3.5-10.5 RED BLOOD CELL COUNT (BEAKER) (test vdaq=908) 2.25 M/ L 4.63-6.08 HEMOGLOBIN (BEAKER) (test rqlr=231) 7.1 GM/DL 13.7-17.5 HEMATOCRIT (BEAKER) (test tvik=788) 21.4 % 40.1-51.0 MEAN CORPUSCULAR VOLUME (BEAKER) (test lrkg=201) 95.1 fL 79.0-92.2 MEAN CORPUSCULAR HEMOGLOBIN (BEAKER) (test 31.6 pg 25.7-32.2 ykpz=891) MEAN CORPUSCULAR HEMOGLOBIN CONC (BEAKER) (test 33.2 GM/DL 32.3-36.5 wjnz=419) RED CELL DISTRIBUTION WIDTH (BEAKER) (test 17.5 % 11.6-14.4 fuyw=071) PLATELET COUNT (BEAKER) (test qvga=528) 44 K/CU MM 150-450 MEAN PLATELET VOLUME (BEAKER) (test iywf=986) 9.3 fL 9.4-12.4 NUCLEATED RED BLOOD CELLS (BEAKER) (test 0 /100 WBC 0-0 oaby=403) NEUTROPHILS RELATIVE PERCENT (BEAKER) (test 59 % cfcs=465) LYMPHOCYTES RELATIVE PERCENT (BEAKER) (test 16 % dson=679) MONOCYTES RELATIVE PERCENT (BEAKER) (test 17 % ktta=599) EOSINOPHILS RELATIVE PERCENT (BEAKER) (test 7 % mubs=393) BASOPHILS RELATIVE PERCENT (BEAKER) (test 0 % yewe=228) NEUTROPHILS ABSOLUTE COUNT (BEAKER) (test 1.72 K/ L 1.78-5.38 rrkv=912) LYMPHOCYTES ABSOLUTE COUNT (BEAKER) (test 0.46 K/ L 1.32-3.57 enaw=203) MONOCYTES ABSOLUTE COUNT (BEAKER) (test auun=498) 0.51 K/ L 0.30-0.82 EOSINOPHILS ABSOLUTE COUNT (BEAKER) (test 0.21 K/ L 0.04-0.54 bkhj=755) BASOPHILS ABSOLUTE COUNT (BEAKER) (test reru=814) 0.01 K/ L 0.01-0.08 IMMATURE GRANULOCYTES-RELATIVE PERCENT (BEAKER) 1 % 0-1 (test ctiw=0564) BASIC METABOLIC [id number] 07:00:00 Test Item Value Reference Range Comments SODIUM (BEAKER) (test 130 meq/L 136-145 tepj=595) POTASSIUM (BEAKER) (test 3.6 meq/L 3.5-5.1 mgyr=535) CHLORIDE (BEAKER) (test 94 meq/L 98-107 ccek=427) CO2 (BEAKER) (test 27 meq/L 22-29 hndy=856) BLOOD UREA NITROGEN 19 mg/dL 7-21 (BEAKER) (test dflk=992) CREATININE (BEAKER) (test 1.40 mg/dL 0.57-1.25 uwdp=823) GLUCOSE RANDOM (BEAKER) 111 mg/dL 70-105 (test astw=624) CALCIUM (BEAKER) (test 9.2 mg/dL 8.4-10.2 ejax=532) EGFR (BEAKER) (test 53 mL/min/1.73 sq m ESTIMATED GFR IS NOT otwk=5269) ACCURATE CREATININE CLEARANCE IN PREDICTING GLOMERULAR FILTRATION RATE. ESTIMATED GFR IS NOT APPLICABLE FOR DIALYSIS PATIENTS. Specimen moderately ictericCOMPREHENSIVE METABOLIC [id number] 07:00:00 Test Item Value Reference Range Comments TOTAL PROTEIN (BEAKER) 5.7 gm/dL 6.0-8.3 (test ggsb=637) ALBUMIN (BEAKER) (test 4.0 g/dL 3.5-5.0 gpug=4559) ALKALINE PHOSPHATASE 92 U/L 40-150 (BEAKER) (test cmej=533) BILIRUBIN TOTAL (BEAKER) 4.6 mg/dL 0.2-1.2 (test ohoe=459) SODIUM (BEAKER) (test 130 meq/L 136-145 cood=398) POTASSIUM (BEAKER) (test 3.6 meq/L 3.5-5.1 qocm=223) CHLORIDE (BEAKER) (test 94 meq/L 98-107 iagb=760) CO2 (BEAKER) (test 27 meq/L 22-29 xjae=938) BLOOD UREA NITROGEN 19 mg/dL 7-21 (BEAKER) (test dmgi=175) CREATININE (BEAKER) (test 1.40 mg/dL 0.57-1.25 oiwa=664) GLUCOSE RANDOM (BEAKER) 111 mg/dL 70-105 (test fbwq=007) CALCIUM (BEAKER) (test 9.2 mg/dL 8.4-10.2 fttb=745) AST (SGOT) (BEAKER) (test 16 U/L 5-34 qqoc=559) ALT (SGPT) (BEAKER) (test 6 U/L 6-55 lfyq=230) EGFR (BEAKER) (test 53 mL/min/1.73 sq m ESTIMATED GFR IS NOT fmgg=6413) ACCURATE CREATININE CLEARANCE IN PREDICTING GLOMERULAR FILTRATION RATE. ESTIMATED GFR IS NOT APPLICABLE FOR DIALYSIS PATIENTS. Specimen moderately ictericHEPATIC FUNCTION [id number] 07:00:00 Test Item Value Reference Range Comments TOTAL PROTEIN (BEAKER) (test dsod=501) 5.7 gm/dL 6.0-8.3 ALBUMIN (BEAKER) (test kuov=6429) 4.0 g/dL 3.5-5.0 BILIRUBIN TOTAL (BEAKER) (test phko=698) 4.6 mg/dL 0.2-1.2 BILIRUBIN DIRECT (BEAKER) (test ayii=721) 1.8 mg/dL 0.1-0.5 ALKALINE PHOSPHATASE (BEAKER) (test bpgx=176) 92 U/L 40-150 AST (SGOT) (BEAKER) (test kcji=123) 16 U/L 5-34 ALT (SGPT) (BEAKER) (test ilcl=528) 6 U/L 6-55 Specimen moderately [id number] 06:57:00 Test Item Value Reference Range Comments PARTIAL THROMBOPLASTIN TIME (BEAKER) (test 47.9 seconds 22.5-36.0 etgd=033) PROTHROMBIN [id number] 06:55:00 Test Item Value Reference Range Comments PROTIME (BEAKER) (test vhoz=747) 23.7 seconds 11.7-14.7 INR (BEAKER) (test njof=716) 2.1 <=5.9 RECOMMENDED COUMADIN/WARFARIN INR THERAPY RANGESSTANDARD DOSE: 2.0 - 3.0 Includes: PROPHYLAXIS forvenous thrombosis, systemic embolization; TREATMENT for venous thrombosis and/or pulmonary embolus.HIGH RISK: Target INR is 2.5-3.5 for patients with mechanical heart valves.MR, SPINE, LUMBAR, WITHOUT [id number] 16:57:00FINAL REPORT MRI lumbar spine without contrast [...] Verified Date/Time: 05/07/2018 16:57:00 Reading Location: [facility] Radiology Reading Room LACTIC ACID, VENOUS, WHOLE [id number] 14:13:00 Test Item Value Reference Range Comments LACTATE BLOOD VENOUS (2) (BEAKER) (test 2.6 mmol/L 0.5-2.2 pyuz=0661) Effective 02/28/2016: Units/Reference Range ChangeNew: 0.5-2.2 mmol/L Previous: 5 -20 mg/dLSpecimen slightly ictericHEMOGLOBIN AND [id number] 13:51:00 Test Item Value Reference Range Comments HEMOGLOBIN (BEAKER) (test yotr=547) 7.1 GM/DL 13.7-17.5 HEMATOCRIT (BEAKER) (test xvpi=132) 21.7 % 40.1-51.0 U/S, RENAL, [id number] 09:48:00Reason for exam:->AKIFINAL REPORT Renal ultrasound Clinical [...] MDReport Verified Date/Time: 05/07/2018 09:48:55 Reading Location: [address] Ultrasound Reading Room Electronically signed by: REECE HAQUE MD on 09:[id number] 09:04:00 Test Item Value Reference Range Comments MAGNESIUM (BEAKER) (test vqbp=825) 2.0 mg/dL 1.6-2.6 COMPREHENSIVE METABOLIC [id number] 09:04:00 Test Item Value Reference Range Comments TOTAL PROTEIN (BEAKER) 5.2 gm/dL 6.0-8.3 (test vyaf=565) ALBUMIN (BEAKER) (test 3.5 g/dL 3.5-5.0 pzke=7982) ALKALINE PHOSPHATASE 96 U/L 40-150 (BEAKER) (test ncws=636) BILIRUBIN TOTAL (BEAKER) 4.1 mg/dL 0.2-1.2 (test bolt=769) SODIUM (BEAKER) (test 129 meq/L 136-145 hxaj=327) POTASSIUM (BEAKER) (test 3.8 meq/L 3.5-5.1 ohhz=553) CHLORIDE (BEAKER) (test 96 meq/L 98-107 uqvb=448) CO2 (BEAKER) (test 25 meq/L 22-29 uvcf=322) BLOOD UREA NITROGEN 22 mg/dL 7-21 (BEAKER) (test izkw=468) CREATININE (BEAKER) (test 1.57 mg/dL 0.57-1.25 iggz=754) GLUCOSE RANDOM (BEAKER) 122 mg/dL 70-105 (test aatj=926) CALCIUM (BEAKER) (test 8.9 mg/dL 8.4-10.2 igjh=742) AST (SGOT) (BEAKER) (test 15 U/L 5-34 agrw=077) ALT (SGPT) (BEAKER) (test 7 U/L 6-55 raad=495) EGFR (BEAKER) (test 47 mL/min/1.73 sq m ESTIMATED GFR IS NOT kpqm=4507) ACCURATE CREATININE CLEARANCE IN PREDICTING GLOMERULAR FILTRATION RATE. ESTIMATED GFR IS NOT APPLICABLE FOR DIALYSIS PATIENTS. Specimen moderately ictericHEPATIC FUNCTION [id number] 09:04:00 Test Item Value Reference Range Comments TOTAL PROTEIN (BEAKER) (test pbvf=615) 5.2 gm/dL 6.0-8.3 ALBUMIN (BEAKER) (test xdzq=8597) 3.5 g/dL 3.5-5.0 BILIRUBIN TOTAL (BEAKER) (test jals=625) 4.1 mg/dL 0.2-1.2 BILIRUBIN DIRECT (BEAKER) (test bqkq=061) 1.8 mg/dL 0.1-0.5 ALKALINE PHOSPHATASE (BEAKER) (test hhwd=317) 96 U/L 40-150 AST (SGOT) (BEAKER) (test kckb=082) 15 U/L 5-34 ALT (SGPT) (BEAKER) (test kome=064) 7 U/L 6-55 Specimen moderately ictericCBC W/PLT COUNT & AUTO [id number] 08: 26:00 Test Item Value Reference Range Comments WHITE BLOOD CELL COUNT (BEAKER) (test bpgj=941) 2.7 K/ L 3.5-10.5 RED BLOOD CELL COUNT (BEAKER) (test nwnb=034) 2.13 M/ L 4.63-6.08 HEMOGLOBIN (BEAKER) (test zgjb=892) 6.8 GM/DL 13.7-17.5 HEMATOCRIT (BEAKER) (test rfvg=578) 19.5 % 40.1-51.0 MEAN CORPUSCULAR VOLUME (BEAKER) (test awtx=568) 91.5 fL 79.0-92.2 MEAN CORPUSCULAR HEMOGLOBIN (BEAKER) (test 31.9 pg 25.7-32.2 igud=349) MEAN CORPUSCULAR HEMOGLOBIN CONC (BEAKER) (test 34.9 GM/DL 32.3-36.5 vluy=183) RED CELL DISTRIBUTION WIDTH (BEAKER) (test 17.5 % 11.6-14.4 nmgq=164) PLATELET COUNT (BEAKER) (test hbtd=885) 52 K/CU MM 150-450 MEAN PLATELET VOLUME (BEAKER) (test nezu=975) 9.1 fL 9.4-12.4 NUCLEATED RED BLOOD CELLS (BEAKER) (test 0 /100 WBC 0-0 vysi=788) NEUTROPHILS RELATIVE PERCENT (BEAKER) (test 62 % agxh=119) LYMPHOCYTES RELATIVE PERCENT (BEAKER) (test 16 % pryn=611) MONOCYTES RELATIVE PERCENT (BEAKER) (test 17 % lsgc=498) EOSINOPHILS RELATIVE PERCENT (BEAKER) (test 4 % etep=473) BASOPHILS RELATIVE PERCENT (BEAKER) (test 0 % idqv=944) NEUTROPHILS ABSOLUTE COUNT (BEAKER) (test 1.66 K/ L 1.78-5.38 mgnm=203) LYMPHOCYTES ABSOLUTE COUNT (BEAKER) (test 0.43 K/ L 1.32-3.57 jbpb=832) MONOCYTES ABSOLUTE COUNT (BEAKER) (test bbmj=266) 0.44 K/ L 0.30-0.82 EOSINOPHILS ABSOLUTE COUNT (BEAKER) (test 0.11 K/ L 0.04-0.54 iwkv=545) BASOPHILS ABSOLUTE COUNT (BEAKER) (test qqtc=740) 0.00 K/ L 0.01-0.08 IMMATURE GRANULOCYTES-RELATIVE PERCENT (BEAKER) 1 % 0-1 (test yvvs=6794) PROTHROMBIN [id number] 08:08:00 Test Item Value Reference Range Comments PROTIME (BEAKER) (test yuml=684) 28.3 seconds 11.7-14.7 INR (BEAKER) (test prlv=520) 2.7 <=5.9 RECOMMENDED COUMADIN/WARFARIN INR THERAPY RANGESSTANDARD DOSE: 2.0 - 3.0 Includes: PROPHYLAXIS forvenous thrombosis, systemic embolization; TREATMENT for venous thrombosis and/or pulmonary embolus.HIGH RISK: Target INR is 2.5-3.5 for patients with mechanical heart valves.[id number] 19:47:00 Test Item Value Reference Range Comments SODIUM (BEAKER) (test iiib=587) 129 meq/L 136-145 POTASSIUM (BEAKER) (test nvrp=331) 4.6 meq/L 3.5-5.1 CHLORIDE (BEAKER) (test ldnk=034) 96 meq/L 98-107 CO2 (BEAKER) (test acts=420) 22 meq/L 22-29 Call [id number] AND [id number] 19:27:00 Test Item Value Reference Range Comments HEMOGLOBIN (BEAKER) (test txbg=296) 7.1 GM/DL 13.7-17.5 HEMATOCRIT (BEAKER) (test jeml=525) 21.4 % 40.1-51.0 Draw after transfusion of 1u RBC, notify hospitalist if Hgb remains less than 7.0HEMOGLOBIN AND [id number] 11:52:00 Test Item Value Reference Range Comments HEMOGLOBIN (BEAKER) (test crdf=576) 6.3 GM/DL 13.7-17.5 HEMATOCRIT (BEAKER) (test xnym=576) 18.9 % 40.1-51.0 Notify Hepatology if Hgb< 7.0YUNIOR Sandoval PA-CPager#: [phone].BASIC METABOLIC [id number] 05:55:00 Test Item Value Reference Range Comments SODIUM (BEAKER) (test 129 meq/L 136-145 ywin=790) POTASSIUM (BEAKER) (test 5.2 meq/L 3.5-5.1 dszt=336) CHLORIDE (BEAKER) (test 97 meq/L 98-107 dpdw=336) CO2 (BEAKER) (test 22 meq/L 22-29 hbmq=333) BLOOD UREA NITROGEN 28 mg/dL 7-21 (BEAKER) (test zvit=352) CREATININE (BEAKER) (test 1.95 mg/dL 0.57-1.25 qavl=213) GLUCOSE RANDOM (BEAKER) 102 mg/dL 70-105 (test tmrj=060) CALCIUM (BEAKER) (test 9.4 mg/dL 8.4-10.2 xvop=278) EGFR (BEAKER) (test 36 mL/min/1.73 sq m ESTIMATED GFR IS NOT mpwm=4770) ACCURATE CREATININE CLEARANCE IN PREDICTING GLOMERULAR FILTRATION RATE. ESTIMATED GFR IS NOT APPLICABLE FOR DIALYSIS PATIENTS. Specimen slightly ictericHEPATIC FUNCTION [id number] 05:55:00 Test Item Value Reference Range Comments TOTAL PROTEIN (BEAKER) (test uldo=686) 5.6 gm/dL 6.0-8.3 ALBUMIN (BEAKER) (test vbsx=3537) 3.4 g/dL 3.5-5.0 BILIRUBIN TOTAL (BEAKER) (test fbes=272) 3.7 mg/dL 0.2-1.2 BILIRUBIN DIRECT (BEAKER) (test dcql=169) 2.5 mg/dL 0.1-0.5 ALKALINE PHOSPHATASE (BEAKER) (test jhng=078) 108 U/L 40-150 AST (SGOT) (BEAKER) (test ddpj=315) 17 U/L 5-34 ALT (SGPT) (BEAKER) (test jkyn=659) 7 U/L 6-55 Specimen slightly ictericCBC W/PLT COUNT & AUTO [id number] 05:42 :00 Test Item Value Reference Range Comments WHITE BLOOD CELL COUNT (BEAKER) (test bsop=601) 3.7 K/ L 3.5-10.5 RED BLOOD CELL COUNT (BEAKER) (test tksh=235) 2.10 M/ L 4.63-6.08 HEMOGLOBIN (BEAKER) (test zxil=342) 6.5 GM/DL 13.7-17.5 HEMATOCRIT (BEAKER) (test uigz=989) 19.8 % 40.1-51.0 MEAN CORPUSCULAR VOLUME (BEAKER) (test thhv=452) 94.3 fL 79.0-92.2 MEAN CORPUSCULAR HEMOGLOBIN (BEAKER) (test 31.0 pg 25.7-32.2 izdo=625) MEAN CORPUSCULAR HEMOGLOBIN CONC (BEAKER) (test 32.8 GM/DL 32.3-36.5 moea=889) RED CELL DISTRIBUTION WIDTH (BEAKER) (test 16.4 % 11.6-14.4 qsqi=981) PLATELET COUNT (BEAKER) (test rzvx=884) 54 K/CU MM 150-450 MEAN PLATELET VOLUME (BEAKER) (test nyfs=772) 9.8 fL 9.4-12.4 NUCLEATED RED BLOOD CELLS (BEAKER) (test 0 /100 WBC 0-0 cufj=914) NEUTROPHILS RELATIVE PERCENT (BEAKER) (test 62 % rizg=044) LYMPHOCYTES RELATIVE PERCENT (BEAKER) (test 15 % hkhn=041) MONOCYTES RELATIVE PERCENT (BEAKER) (test 18 % jimo=787) EOSINOPHILS RELATIVE PERCENT (BEAKER) (test 3 % ivlr=222) BASOPHILS RELATIVE PERCENT (BEAKER) (test 0 % aqzi=665) NEUTROPHILS ABSOLUTE COUNT (BEAKER) (test 2.27 K/ L 1.78-5.38 pzyp=299) LYMPHOCYTES ABSOLUTE COUNT (BEAKER) (test 0.56 K/ L 1.32-3.57 yzor=338) MONOCYTES ABSOLUTE COUNT (BEAKER) (test onso=930) 0.66 K/ L 0.30-0.82 EOSINOPHILS ABSOLUTE COUNT (BEAKER) (test 0.12 K/ L 0.04-0.54 qipi=950) BASOPHILS ABSOLUTE COUNT (BEAKER) (test mawg=387) 0.01 K/ L 0.01-0.08 IMMATURE GRANULOCYTES-RELATIVE PERCENT (BEAKER) 1 % 0-1 (test srtu=9289) PROTHROMBIN TIME/[id number] 05:34:00 Test Item Value Reference Range Comments PROTIME (BEAKER) (test dhdi=394) 21.7 seconds 11.7-14.7 INR (BEAKER) (test yekg=076) 1.9 <=5.9 RECOMMENDED COUMADIN/WARFARIN INR THERAPY RANGESSTANDARD DOSE: 2.0 - 3.0 Includes: PROPHYLAXIS forvenous thrombosis, systemic embolization; TREATMENT for venous thrombosis and/or pulmonary embolus.HIGH RISK: Target INR is 2.5-3.5 for patients with mechanical heart valves.EOSINOPHIL SMEAR, [id number] 21: 51:00 Test Item Value Reference Range Comments EOSINOPHIL SMEAR, URINE (BEAKER) (test No EOS seen No EOS seen pwus=1768) BODY FLUID CELL COUNT WITH [id number] 21:42:00 Test Item Value Reference Range Comments APPEARANCE FLUID (BEAKER) (test aefs=444) Hazy Clear COLOR FLUID (BEAKER) (test fkkp=960) Yellow Colorless, Straw RBC FLUID (BEAKER) (test lviv=190) 70 /cu mm <=1 ADJUSTED WBC FLUID (BEAKER) (test rnen=1272) 44 /cu mm <=5 LINING CELLS (BEAKER) (test hjxb=2406) 8 /cu mm <=1 NEUTROPHILS FLUID (BEAKER) (test qzxt=5813) 0 % LYMPHS FLUID (BEAKER) (test vcki=936) 11 % MONO/MACROPHAGE FLUID (BEAKER) (test rlnj=158) 89 % EOSINOPHILS FLUID (BEAKER) (test mjnr=036) 0 % BASO FLUID (BEAKER) (test kitk=802) 0 % CONTAINER BODY FLUID (BEAKER) (test jgtk=1655) EDTA Tube OSMOLALITY, [id number] 19:46:00 Test Item Value Reference Range Comments OSMOLALITY URINE (BEAKER) (test nxyz=010) 355 mOsm/kg 40-1400 SODIUM, RANDOM [id number] 19:35:00 Test Item Value Reference Range Comments SODIUM URINE (BEAKER) (test qytd=204) < meq/L Reference Range: No NormalsPROTEIN, RANDOM [id number] 19:27:00 Test Item Value Reference Range Comments PROTEIN, URINE (BEAKER) (test gnwh=6787) 7 mg/dL 0-14 CREATININE, RANDOM [id number] 19:25:00 Test Item Value Reference Range Comments CREATININE URINE (BEAKER) (test yzkh=836) 150.3 mg/dL Reference Range: No [id number] 16:26:00 Test Item Value Reference Range Comments PREALBUMIN (BEAKER) (test flll=960) 5 mg/dL 14-45 Listed for OLT - Nutrition Surveillance ([facility] Hepatology Transplant Team)U/S, [id number] 14:56:00Reason for exam:->ascites - limit to 5L [...] MDReport Verified Date/Time: 05/05/2018 14:56:27 Reading Location: [address] Ultrasound Reading Room BASIC METABOLIC [id number] 09:36:00 Test Item Value Reference Range Comments SODIUM (BEAKER) (test 125 meq/L 136-145 hifk=947) POTASSIUM (BEAKER) (test 4.2 meq/L 3.5-5.1 mrfo=806) CHLORIDE (BEAKER) (test 95 meq/L 98-107 bizy=844) CO2 (BEAKER) (test 23 meq/L 22-29 hcfq=198) BLOOD UREA NITROGEN 29 mg/dL 7-21 (BEAKER) (test hdrj=567) CREATININE (BEAKER) (test 2.01 mg/dL 0.57-1.25 ikwz=608) GLUCOSE RANDOM (BEAKER) 112 mg/dL 70-105 (test flik=022) CALCIUM (BEAKER) (test 9.2 mg/dL 8.4-10.2 mlfb=745) EGFR (BEAKER) (test 35 mL/min/1.73 sq m ESTIMATED GFR IS NOT bjvn=4860) ACCURATE CREATININE CLEARANCE IN PREDICTING GLOMERULAR FILTRATION RATE. ESTIMATED GFR IS NOT APPLICABLE FOR DIALYSIS PATIENTS. Specimen slightly ictericHEPATIC FUNCTION [id number] 09:36:00 Test Item Value Reference Range Comments TOTAL PROTEIN (BEAKER) (test ymdw=956) 5.3 gm/dL 6.0-8.3 ALBUMIN (BEAKER) (test ciiq=1440) 3.0 g/dL 3.5-5.0 BILIRUBIN TOTAL (BEAKER) (test osgd=616) 4.1 mg/dL 0.2-1.2 BILIRUBIN DIRECT (BEAKER) (test rqmp=095) 2.8 mg/dL 0.1-0.5 ALKALINE PHOSPHATASE (BEAKER) (test dhkm=107) 115 U/L 40-150 AST (SGOT) (BEAKER) (test iwzm=563) 20 U/L 5-34 ALT (SGPT) (BEAKER) (test kkud=961) 9 U/L 6-55 Specimen slightly ictericCBC W/PLT COUNT & AUTO [id number] 09:28 :00 Test Item Value Reference Range Comments WHITE BLOOD CELL COUNT (BEAKER) (test dtmv=379) 4.4 K/ L 3.5-10.5 RED BLOOD CELL COUNT (BEAKER) (test stmw=440) 2.20 M/ L 4.63-6.08 HEMOGLOBIN (BEAKER) (test wdpr=885) 7.1 GM/DL 13.7-17.5 HEMATOCRIT (BEAKER) (test mqpb=219) 21.1 % 40.1-51.0 MEAN CORPUSCULAR VOLUME (BEAKER) (test csnw=839) 95.9 fL 79.0-92.2 MEAN CORPUSCULAR HEMOGLOBIN (BEAKER) (test 32.3 pg 25.7-32.2 sogd=364) MEAN CORPUSCULAR HEMOGLOBIN CONC (BEAKER) (test 33.6 GM/DL 32.3-36.5 ckys=561) RED CELL DISTRIBUTION WIDTH (BEAKER) (test 16.7 % 11.6-14.4 zebn=110) PLATELET COUNT (BEAKER) (test igwi=646) 60 K/CU MM 150-450 MEAN PLATELET VOLUME (BEAKER) (test qcys=995) 9.7 fL 9.4-12.4 NUCLEATED RED BLOOD CELLS (BEAKER) (test 0 /100 WBC 0-0 nval=791) NEUTROPHILS RELATIVE PERCENT (BEAKER) (test 71 % twgh=648) LYMPHOCYTES RELATIVE PERCENT (BEAKER) (test 9 % wfus=191) MONOCYTES RELATIVE PERCENT (BEAKER) (test 16 % iqis=288) EOSINOPHILS RELATIVE PERCENT (BEAKER) (test 3 % sztk=996) BASOPHILS RELATIVE PERCENT (BEAKER) (test 0 % gtgt=036) NEUTROPHILS ABSOLUTE COUNT (BEAKER) (test 3.10 K/ L 1.78-5.38 sdbs=116) LYMPHOCYTES ABSOLUTE COUNT (BEAKER) (test 0.39 K/ L 1.32-3.57 wajw=106) MONOCYTES ABSOLUTE COUNT (BEAKER) (test smkl=503) 0.69 K/ L 0.30-0.82 EOSINOPHILS ABSOLUTE COUNT (BEAKER) (test 0.12 K/ L 0.04-0.54 jpeh=910) BASOPHILS ABSOLUTE COUNT (BEAKER) (test zlcu=596) 0.01 K/ L 0.01-0.08 IMMATURE GRANULOCYTES-RELATIVE PERCENT (BEAKER) 1 % 0-1 (test nmok=3761) PROTHROMBIN [id number] 09:07:00 Test Item Value Reference Range Comments PROTIME (BEAKER) (test rnmv=855) 21.6 seconds 11.7-14.7 INR (BEAKER) (test xong=208) 1.9 <=5.9 RECOMMENDED COUMADIN/WARFARIN INR THERAPY RANGESSTANDARD DOSE: 2.0 - 3.0 Includes: PROPHYLAXIS forvenous thrombosis, systemic embolization; TREATMENT for venous thrombosis and/or pulmonary embolus.HIGH RISK: Target INR is 2.5-3.5 for patients with mechanical heart valves.[id number] 13:59:00 Test Item Value Reference Range Comments POC-CREATININE (BEAKER) 2.0 mg/dL 0.6-1.3 TESTED AT [address] (test umni=8891) [facility] [address] POC-EGFR (BEAKER) (test 35 mL/min/1.73M2 ttpl=9730) PET/CT, LIMITED AREA [id number] 08:25:00PET/ CT ChestReason for Exam:-> Elongated nodular [...] thighsAdditional imaging: NoneSerum blood glucose: 119CPT Code: 31651 FINDINGS:Head and Neck: There is no trisha [...] Hung Verified Date/Time: 03/31/2018 08:25:09 POCT- GLUCOSE [id number] 14:54:00 Test Item Value Reference Range Comments POC-GLUCOSE METER (BEAKER) 119 mg/dL 70-110 TESTED AT [facility] [address] (test cltb=4571) [facility] [address] COMPREHENSIVE METABOLIC [id number] 16:49:00 Test Item Value Reference Range Comments TOTAL PROTEIN (BEAKER) 6.2 gm/dL 6.0-8.3 (test dvfx=920) ALBUMIN (BEAKER) (test 3.4 g/dL 3.5-5.0 lxwb=2087) ALKALINE PHOSPHATASE 139 U/L 40-150 (BEAKER) (test zvbl=929) BILIRUBIN TOTAL (BEAKER) 4.0 mg/dL 0.2-1.2 (test oiva=520) SODIUM (BEAKER) (test 129 meq/L 136-145 xwww=657) POTASSIUM (BEAKER) (test 4.3 meq/L 3.5-5.1 ygqi=652) CHLORIDE (BEAKER) (test 96 meq/L 98-107 djka=662) CO2 (BEAKER) (test 22 meq/L 22-29 phpc=103) BLOOD UREA NITROGEN 28 mg/dL 7-21 (BEAKER) (test aqdw=168) CREATININE (BEAKER) (test 1.51 mg/dL 0.57-1.25 gtqx=789) GLUCOSE RANDOM (BEAKER) 89 mg/dL 70-105 (test qtfh=016) CALCIUM (BEAKER) (test 9.5 mg/dL 8.4-10.2 rtoe=887) AST (SGOT) (BEAKER) (test 26 U/L 5-34 kwnf=561) ALT (SGPT) (BEAKER) (test 11 U/L 6-55 pxwd=007) EGFR (BEAKER) (test 49 mL/min/1.73 sq m ESTIMATED GFR IS NOT wdqw=4074) ACCURATE CREATININE CLEARANCE IN PREDICTING GLOMERULAR FILTRATION RATE. ESTIMATED GFR IS NOT APPLICABLE FOR DIALYSIS PATIENTS. Specimen slightly ictericBILIRUBIN, [id number] 16:49:00 Test Item Value Reference Range Comments BILIRUBIN DIRECT (BEAKER) (test bsmn=956) 2.8 mg/dL 0.1-0.5 PROTHROMBIN [id number] 16:36:00 Test Item Value Reference Range Comments PROTIME (BEAKER) (test rmux=169) 19.0 seconds 11.7-14.7 INR (BEAKER) (test uggk=126) 1.6 <=5.9 RECOMMENDED COUMADIN/WARFARIN INR THERAPY RANGESSTANDARD DOSE: 2.0 - 3.0 Includes: PROPHYLAXIS forvenous thrombosis, systemic embolization; TREATMENT for venous thrombosis and/or pulmonary embolus.HIGH RISK: Target INR is 2.5-3.5 for patients with mechanical heart valves.CBC W/PLT COUNT & AUTO [id number] 16:27:00 Test Item Value Reference Range Comments WHITE BLOOD CELL COUNT (BEAKER) (test czqi=000) 6.0 K/ L 3.5-10.5 RED BLOOD CELL COUNT (BEAKER) (test wcqf=848) 2.74 M/ L 4.63-6.08 HEMOGLOBIN (BEAKER) (test gcqt=032) 9.3 GM/DL 13.7-17.5 HEMATOCRIT (BEAKER) (test kaav=188) 27.6 % 40.1-51.0 MEAN CORPUSCULAR VOLUME (BEAKER) (test jcfx=096) 100.7 fL 79.0-92.2 MEAN CORPUSCULAR HEMOGLOBIN (BEAKER) (test 33.9 pg 25.7-32.2 fgqi=649) MEAN CORPUSCULAR HEMOGLOBIN CONC (BEAKER) (test 33.7 GM/DL 32.3-36.5 sxiq=628) RED CELL DISTRIBUTION WIDTH (BEAKER) (test 14.9 % 11.6-14.4 qnih=743) PLATELET COUNT (BEAKER) (test lhpc=680) 96 K/CU MM 150-450 MEAN PLATELET VOLUME (BEAKER) (test jrnq=758) 9.4 fL 9.4-12.4 NUCLEATED RED BLOOD CELLS (BEAKER) (test 0 /100 WBC 0-0 mzln=657) NEUTROPHILS RELATIVE PERCENT (BEAKER) (test 64 % vifr=964) LYMPHOCYTES RELATIVE PERCENT (BEAKER) (test 11 % oxxz=883) MONOCYTES RELATIVE PERCENT (BEAKER) (test 16 % zeqr=656) EOSINOPHILS RELATIVE PERCENT (BEAKER) (test 7 % orwi=161) BASOPHILS RELATIVE PERCENT (BEAKER) (test 1 % ozml=863) NEUTROPHILS ABSOLUTE COUNT (BEAKER) (test 3.83 K/ L 1.78-5.38 dejq=753) LYMPHOCYTES ABSOLUTE COUNT (BEAKER) (test 0.66 K/ L 1.32-3.57 dqmx=543) MONOCYTES ABSOLUTE COUNT (BEAKER) (test thiz=371) 0.95 K/ L 0.30-0.82 EOSINOPHILS ABSOLUTE COUNT (BEAKER) (test 0.41 K/ L 0.04-0.54 oefj=024) BASOPHILS ABSOLUTE COUNT (BEAKER) (test mlyn=939) 0.03 K/ L 0.01-0.08 IMMATURE GRANULOCYTES-RELATIVE PERCENT (BEAKER) 2 % 0-1 (test bntl=5281) BASIC METABOLIC [id number] 08:26:00 Test Item Value Reference Range Comments SODIUM (BEAKER) (test 127 meq/L 136-145 ncuy=638) POTASSIUM (BEAKER) (test 4.3 meq/L 3.5-5.1 ukvj=861) CHLORIDE (BEAKER) (test 96 meq/L 98-107 tgtz=491) CO2 (BEAKER) (test 23 meq/L 22-29 uram=650) BLOOD UREA NITROGEN 25 mg/dL 7-21 (BEAKER) (test ffwd=151) CREATININE (BEAKER) (test 1.46 mg/dL 0.57-1.25 nmtm=383) GLUCOSE RANDOM (BEAKER) 130 mg/dL 70-105 (test aist=284) CALCIUM (BEAKER) (test 9.1 mg/dL 8.4-10.2 cgtm=989) EGFR (BEAKER) (test 51 mL/min/1.73 sq m ESTIMATED GFR IS NOT dusu=2785) ACCURATE CREATININE CLEARANCE IN PREDICTING GLOMERULAR FILTRATION RATE. ESTIMATED GFR IS NOT APPLICABLE FOR DIALYSIS PATIENTS. Specimen slightly ictericCBC (HEMOGRAM ONLY)2018-02-23 08:06:00 Test Item Value Reference Range Comments WHITE BLOOD CELL COUNT (BEAKER) (test vdpe=209) 5.4 K/ L 3.5-10.5 RED BLOOD CELL COUNT (BEAKER) (test qvax=886) 2.64 M/ L 4.63-6.08 HEMOGLOBIN (BEAKER) (test rlpv=404) 8.8 GM/DL 13.7-17.5 HEMATOCRIT (BEAKER) (test gleh=596) 26.2 % 40.1-51.0 MEAN CORPUSCULAR VOLUME (BEAKER) (test bcii=015) 99.2 fL 79.0-92.2 MEAN CORPUSCULAR HEMOGLOBIN (BEAKER) (test 33.3 pg 25.7-32.2 xzhh=493) MEAN CORPUSCULAR HEMOGLOBIN CONC (BEAKER) (test 33.6 GM/DL 32.3-36.5 ajqe=485) RED CELL DISTRIBUTION WIDTH (BEAKER) (test 16.2 % 11.6-14.4 fcnc=885) PLATELET COUNT (BEAKER) (test buut=556) 100 K/CU MM 150-450 MEAN PLATELET VOLUME (BEAKER) (test qlql=293) 8.7 fL 9.4-12.4 NUCLEATED RED BLOOD CELLS (BEAKER) (test 0 /100 WBC 0-0 aetk=249) COMPREHENSIVE METABOLIC [id number] 15:06:00 Test Item Value Reference Range Comments TOTAL PROTEIN (BEAKER) 6.5 gm/dL 6.0-8.3 (test zkss=216) ALBUMIN (BEAKER) (test 3.7 g/dL 3.5-5.0 qwzv=8558) ALKALINE PHOSPHATASE 135 U/L 40-150 (BEAKER) (test ngqe=192) BILIRUBIN TOTAL (BEAKER) 4.5 mg/dL 0.2-1.2 (test wdpb=055) SODIUM (BEAKER) (test 131 meq/L 136-145 hyos=211) POTASSIUM (BEAKER) (test 5.8 meq/L 3.5-5.1 coss=720) CHLORIDE (BEAKER) (test 103 meq/L 98-107 dlsm=272) CO2 (BEAKER) (test 24 meq/L 22-29 lpjx=688) BLOOD UREA NITROGEN 27 mg/dL 7-21 (BEAKER) (test tqys=987) CREATININE (BEAKER) (test 1.17 mg/dL 0.57-1.25 kmfx=108) GLUCOSE RANDOM (BEAKER) 111 mg/dL 70-105 (test gydz=261) CALCIUM (BEAKER) (test 11.0 mg/dL 8.4-10.2 jbfd=473) AST (SGOT) (BEAKER) (test 28 U/L 5-34 gici=271) ALT (SGPT) (BEAKER) (test 19 U/L 6-55 iuba=962) EGFR (BEAKER) (test 65 mL/min/1.73 sq m ESTIMATED GFR IS NOT naua=5734) ACCURATE CREATININE CLEARANCE IN PREDICTING GLOMERULAR FILTRATION RATE. ESTIMATED GFR IS NOT APPLICABLE FOR DIALYSIS PATIENTS. Specimen slightly ictericBILIRUBIN, [id number] 15:06:00 Test Item Value Reference Range Comments BILIRUBIN DIRECT (BEAKER) (test llhs=225) 3.0 mg/dL 0.1-0.5 PROTHROMBIN [id number] 14:42:00 Test Item Value Reference Range Comments PROTIME (BEAKER) (test gcvp=776) 19.1 seconds 11.7-14.7 INR (BEAKER) (test fdeb=168) 1.6 <=5.9 RECOMMENDED COUMADIN/WARFARIN INR THERAPY RANGESSTANDARD DOSE: 2.0 - 3.0 Includes: PROPHYLAXIS forvenous thrombosis, systemic embolization; TREATMENT for venous thrombosis and/or pulmonary embolus.HIGH RISK: Target INR is 2.5-3.5 for patients with mechanical heart valves.CBC W/PLT COUNT & AUTO [id number] 14:36:00 Test Item Value Reference Range Comments WHITE BLOOD CELL COUNT (BEAKER) (test cmug=864) 5.5 K/ L 3.5-10.5 RED BLOOD CELL COUNT (BEAKER) (test ixej=429) 2.84 M/ L 4.63-6.08 HEMOGLOBIN (BEAKER) (test xdge=041) 9.5 GM/DL 13.7-17.5 HEMATOCRIT (BEAKER) (test wina=354) 28.8 % 40.1-51.0 MEAN CORPUSCULAR VOLUME (BEAKER) (test wisb=394) 101.4 fL 79.0-92.2 MEAN CORPUSCULAR HEMOGLOBIN (BEAKER) (test 33.5 pg 25.7-32.2 kbdt=503) MEAN CORPUSCULAR HEMOGLOBIN CONC (BEAKER) (test 33.0 GM/DL 32.3-36.5 ijzi=426) RED CELL DISTRIBUTION WIDTH (BEAKER) (test 19.4 % 11.6-14.4 zvgj=367) PLATELET COUNT (BEAKER) (test zoyb=536) 65 K/CU MM 150-450 MEAN PLATELET VOLUME (BEAKER) (test awuq=068) 8.8 fL 9.4-12.4 NUCLEATED RED BLOOD CELLS (BEAKER) (test 0 /100 WBC 0-0 yrhd=168) NEUTROPHILS RELATIVE PERCENT (BEAKER) (test 66 % bqri=939) LYMPHOCYTES RELATIVE PERCENT (BEAKER) (test 14 % aqeu=367) MONOCYTES RELATIVE PERCENT (BEAKER) (test 15 % gbrp=504) EOSINOPHILS RELATIVE PERCENT (BEAKER) (test 4 % cvtg=898) BASOPHILS RELATIVE PERCENT (BEAKER) (test 0 % gaqs=155) NEUTROPHILS ABSOLUTE COUNT (BEAKER) (test 3.58 K/ L 1.78-5.38 gwsx=664) LYMPHOCYTES ABSOLUTE COUNT (BEAKER) (test 0.78 K/ L 1.32-3.57 virb=306) MONOCYTES ABSOLUTE COUNT (BEAKER) (test lxsf=486) 0.79 K/ L 0.30-0.82 EOSINOPHILS ABSOLUTE COUNT (BEAKER) (test 0.23 K/ L 0.04-0.54 vzgu=526) BASOPHILS ABSOLUTE COUNT (BEAKER) (test jcgv=495) 0.02 K/ L 0.01-0.08 IMMATURE GRANULOCYTES-RELATIVE PERCENT (BEAKER) 1 % 0-1 (test mrjo=5453) RAD, KNEE, COMPLETE (4 VIEWS), [id number] 11:15:00Reason for exam:->FALL , PAINFINAL REPORT Bilateral [...] Verified Date/Time: 01/06/2018 11:15:08 Reading Location: [facility] Radiology Reading Room RAD, KNEE, COMPLETE (4 VIEWS), [id number] 11:15:00Reason for exam:->FALL, PAINFINAL REPORT Bilateral knee [...] Verified Date/Time: 01/06/2018 11:15:08 Reading Location: [facility] Radiology Reading Room CBC W/PLT COUNT & AUTO [id number] 10: 58:00 Test Item Value Reference Range Comments WHITE BLOOD CELL COUNT (BEAKER) (test vpeb=422) 2.9 K/ L 3.5-10.5 RED BLOOD CELL COUNT (BEAKER) (test iipj=250) 2.27 M/ L 4.63-6.08 HEMOGLOBIN (BEAKER) (test psbp=411) 7.1 GM/DL 13.7-17.5 HEMATOCRIT (BEAKER) (test aqvc=364) 21.0 % 40.1-51.0 MEAN CORPUSCULAR VOLUME (BEAKER) (test xtsl=449) 92.5 fL 79.0-92.2 MEAN CORPUSCULAR HEMOGLOBIN (BEAKER) (test 31.3 pg 25.7-32.2 eogd=767) MEAN CORPUSCULAR HEMOGLOBIN CONC (BEAKER) (test 33.8 GM/DL 32.3-36.5 rtyj=356) RED CELL DISTRIBUTION WIDTH (BEAKER) (test 17.2 % 11.6-14.4 yhau=371) PLATELET COUNT (BEAKER) (test ygnc=422) 42 K/CU MM 150-450 MEAN PLATELET VOLUME (BEAKER) (test ripr=530) 10.1 fL 9.4-12.4 NUCLEATED RED BLOOD CELLS (BEAKER) (test 0 /100 WBC 0-0 hirg=572) NEUTROPHILS RELATIVE PERCENT (BEAKER) (test 77 % xkkv=681) LYMPHOCYTES RELATIVE PERCENT (BEAKER) (test 12 % kjpc=487) MONOCYTES RELATIVE PERCENT (BEAKER) (test 10 % xtxn=678) EOSINOPHILS RELATIVE PERCENT (BEAKER) (test 1 % facq=221) BASOPHILS RELATIVE PERCENT (BEAKER) (test 0 % pivp=602) NEUTROPHILS ABSOLUTE COUNT (BEAKER) (test 2.21 K/ L 1.78-5.38 lyrc=132) LYMPHOCYTES ABSOLUTE COUNT (BEAKER) (test 0.33 K/ L 1.32-3.57 uhak=898) MONOCYTES ABSOLUTE COUNT (BEAKER) (test vpeo=155) 0.30 K/ L 0.30-0.82 EOSINOPHILS ABSOLUTE COUNT (BEAKER) (test 0.03 K/ L 0.04-0.54 bgna=876) BASOPHILS ABSOLUTE COUNT (BEAKER) (test owry=597) 0.00 K/ L 0.01-0.08 IMMATURE GRANULOCYTES-RELATIVE PERCENT (BEAKER) 0 % 0-1 (test xjpw=0850) [id number] 06:06:00 Test Item Value Reference Range Comments PHOSPHORUS (BEAKER) (test nura=588) 3.6 mg/dL 2.3-4.7 [id number] 06:06:00 Test Item Value Reference Range Comments MAGNESIUM (BEAKER) (test nkyk=036) 2.0 mg/dL 1.6-2.6 BASIC METABOLIC [id number] 06:06:00 Test Item Value Reference Range Comments SODIUM (BEAKER) (test 130 meq/L 136-145 vxvt=724) POTASSIUM (BEAKER) (test 4.4 meq/L 3.5-5.1 zrwb=562) CHLORIDE (BEAKER) (test 100 meq/L 98-107 ctxq=449) CO2 (BEAKER) (test 23 meq/L 22-29 xedf=144) BLOOD UREA NITROGEN 21 mg/dL 7-21 (BEAKER) (test nirz=463) CREATININE (BEAKER) (test 1.11 mg/dL 0.57-1.25 ccyf=789) GLUCOSE RANDOM (BEAKER) 120 mg/dL 70-105 (test kkqr=415) CALCIUM (BEAKER) (test 9.4 mg/dL 8.4-10.2 ntyk=858) EGFR (BEAKER) (test 70 mL/min/1.73 sq m ESTIMATED GFR IS NOT koqc=0291) ACCURATE CREATININE CLEARANCE IN PREDICTING GLOMERULAR FILTRATION RATE. ESTIMATED GFR IS NOT APPLICABLE FOR DIALYSIS PATIENTS. Specimen slightly ictericPROTHROMBIN [id number] 06:02:00 Test Item Value Reference Range Comments PROTIME (BEAKER) (test gduu=317) 22.9 seconds 11.7-14.7 INR (BEAKER) (test hiwd=350) 2.0 <=5.9 RECOMMENDED COUMADIN/WARFARIN INR THERAPY RANGESSTANDARD DOSE: 2.0 - 3.0 Includes: PROPHYLAXIS forvenous thrombosis, systemic embolization; TREATMENT for venous thrombosis and/or pulmonary embolus.HIGH RISK: Target INR is 2.5-3.5 for patients with mechanical heart valves.CALCIUM, [id number] 06:01:00 Test Item Value Reference Range Comments CALCIUM IONIZED (BEAKER) (test ufbe=281) 1.11 mmol/L 1.12-1.27 PH, BLOOD (BEAKER) (test xubm=2712) 7.53 CORTISOL,60 [id number] 23:20:00 Test Item Value Reference Range Comments CORTISOL BASELINE NETWORKED (BEAKER) (test 4.8 mcg/dL bbsx=9563) CORTISOL 30 MINUTE NETWORKED (BEAKER) (test 9.2 mcg/dL kagr=2068) CORTISOL, 60 MINUTE (BEAKER) (test uhaf=6660) 12.6 ug/dL ACTH STIMULATION TEST INTERPRETATION GUIDELINES(Synonyms: [...] study by Mindy et al (NEVAEH 2000,283( 8):2798-45), the ACTH Stimulation Test provides important prognostic [...] serum cortisollevel 60 minutes after cosyntropin administration.CORTISOL,30 [id number] 22:35:00 Test Item Value Reference Range Comments CORTISOL BASELINE NETWORKED (BEAKER) (test 4.8 mcg/dL wojd=8422) CORTISOL, 30 MINUTE (BEAKER) (test fqok=5160) 9.2 ug/dL ACTH STIMULATION TEST INTERPRETATION GUIDELINES(Synonyms: [...] Draw serum cortisollevel 60 minutes after cosyntropin administration.CORTISOL,[id number] 22:35:00 Test Item Value Reference Range Comments CORTISOL, BASELINE (TUNG) (test zheb=8057) 4.8 ug/dL ACTH STIMULATION TEST INTERPRETATION GUIDELINES(Synonyms: [...] serum cortisollevel 60 minutes after cosyntropin administration.U/S, [id number] 17:54:00Reason for exam:->therapeuticFINAL REPORT History: Ascites. PROCEDURE: Following informed written consent,the patient's right lower quadrant was prepped and draped in the usual sterile manner. 2% lidocaine was given locally for anesthesia. No conscious sedation was administered. Using ultrasound guidance, a 5 [place] one-step catheter was advanced percutaneously into the [...] Verified Date/Time: 01/05/2018 17: 54:16 Reading Location: [address] Ultrasound Reading Room [id number] 11:19:00 Test Item Value Reference Range Comments CORTISOL, TOTAL (BEAKER) (test czwx=1134) 2.7 ug/dL 3.7-19.4 [id number] 10:21:00 Test Item Value Reference Range Comments PHOSPHORUS (BEAKER) (test zwxd=942) 2.8 mg/dL 2.3-4.7 [id number] 10:21:00 Test Item Value Reference Range Comments MAGNESIUM (BEAKER) (test utoi=929) 1.9 mg/dL 1.6-2.6 BASIC METABOLIC [id number] 10:21:00 Test Item Value Reference Range Comments SODIUM (BEAKER) (test 127 meq/L 136-145 bvdj=379) POTASSIUM (BEAKER) (test 5.0 meq/L 3.5-5.1 olgl=777) CHLORIDE (BEAKER) (test 100 meq/L 98-107 gkew=102) CO2 (BEAKER) (test 22 meq/L 22-29 hizb=595) BLOOD UREA NITROGEN 25 mg/dL 7-21 (BEAKER) (test scdu=655) CREATININE (BEAKER) (test 1.17 mg/dL 0.57-1.25 tppg=861) GLUCOSE RANDOM (BEAKER) 84 mg/dL 70-105 (test hmtx=064) CALCIUM (BEAKER) (test 8.7 mg/dL 8.4-10.2 kqgk=178) EGFR (BEAKER) (test 65 mL/min/1.73 sq m ESTIMATED GFR IS NOT jwtl=6933) ACCURATE CREATININE CLEARANCE IN PREDICTING GLOMERULAR FILTRATION RATE. ESTIMATED GFR IS NOT APPLICABLE FOR DIALYSIS PATIENTS. Specimen slightly ictericCBC W/PLT COUNT & AUTO [id number] 08:42 :00 Test Item Value Reference Range Comments WHITE BLOOD CELL COUNT (BEAKER) (test lnmx=599) 2.7 K/ L 3.5-10.5 RED BLOOD CELL COUNT (BEAKER) (test vjbf=748) 2.33 M/ L 4.63-6.08 HEMOGLOBIN (BEAKER) (test lelh=422) 7.3 GM/DL 13.7-17.5 HEMATOCRIT (BEAKER) (test ovmi=513) 22.0 % 40.1-51.0 MEAN CORPUSCULAR VOLUME (BEAKER) (test jnek=536) 94.4 fL 79.0-92.2 MEAN CORPUSCULAR HEMOGLOBIN (BEAKER) (test 31.3 pg 25.7-32.2 ifgj=083) MEAN CORPUSCULAR HEMOGLOBIN CONC (BEAKER) (test 33.2 GM/DL 32.3-36.5 gmxo=851) RED CELL DISTRIBUTION WIDTH (BEAKER) (test 17.2 % 11.6-14.4 qkla=653) PLATELET COUNT (BEAKER) (test cjzt=204) 45 K/CU MM 150-450 MEAN PLATELET VOLUME (BEAKER) (test vgms=564) 9.3 fL 9.4-12.4 NUCLEATED RED BLOOD CELLS (BEAKER) (test 0 /100 WBC 0-0 fedc=770) NEUTROPHILS RELATIVE PERCENT (BEAKER) (test 60 % melv=265) LYMPHOCYTES RELATIVE PERCENT (BEAKER) (test 17 % wawr=446) MONOCYTES RELATIVE PERCENT (BEAKER) (test 16 % hjkf=691) EOSINOPHILS RELATIVE PERCENT (BEAKER) (test 6 % oflg=663) BASOPHILS RELATIVE PERCENT (BEAKER) (test 0 % pltk=931) NEUTROPHILS ABSOLUTE COUNT (BEAKER) (test 1.63 K/ L 1.78-5.38 zjjd=156) LYMPHOCYTES ABSOLUTE COUNT (BEAKER) (test 0.45 K/ L 1.32-3.57 qygi=560) MONOCYTES ABSOLUTE COUNT (BEAKER) (test rkmd=187) 0.44 K/ L 0.30-0.82 EOSINOPHILS ABSOLUTE COUNT (BEAKER) (test 0.16 K/ L 0.04-0.54 sksx=780) BASOPHILS ABSOLUTE COUNT (BEAKER) (test mzom=048) 0.01 K/ L 0.01-0.08 IMMATURE GRANULOCYTES-RELATIVE PERCENT (BEAKER) 1 % 0-1 (test xkjy=7249) (MANUAL DIFFERENTIAL)2018-01-05 08:42:00 Test Item Value Reference Range Comments TOTAL COUNTED (BEAKER) (test ylpj=3872) WBC MORPHOLOGY (BEAKER) (test egnx=891) Normal PLT MORPHOLOGY (BEAKER) (test biin=219) Normal ANISOCYTOSIS (BEAKER) (test tisp=005) 1+ few CALCIUM, [id number] 08:10:00 Test Item Value Reference Range Comments CALCIUM IONIZED (BEAKER) (test exba=153) 1.08 mmol/L 1.12-1.27 PH, BLOOD (BEAKER) (test rlcp=9895) 7.44 PROTHROMBIN [id number] 07:12:00 Test Item Value Reference Range Comments PROTIME (BEAKER) (test fiel=659) 22.4 seconds 11.7-14.7 INR (BEAKER) (test vwvz=370) 2.0 <=5.9 RECOMMENDED COUMADIN/WARFARIN INR THERAPY RANGESSTANDARD DOSE: 2.0 - 3.0 Includes: PROPHYLAXIS forvenous thrombosis, systemic embolization; TREATMENT for venous thrombosis and/or pulmonary embolus.HIGH RISK: Target INR is 2.5-3.5 for patients with mechanical heart valves.[id number] 17:54:00 Test Item Value Reference Range Comments SODIUM (BEAKER) (test dtxw=247) 129 meq/L 136-145 POTASSIUM (BEAKER) (test inyk=741) 5.5 meq/L 3.5-5.1 CHLORIDE (BEAKER) (test baos=787) 101 meq/L 98-107 CO2 (BEAKER) (test busa=804) 26 meq/L 22-29 Call [id number] with resultsCBC (HEMOGRAM ONLY)2018-01-04 07:16:00 Test Item Value Reference Range Comments WHITE BLOOD CELL COUNT (BEAKER) (test qtvm=006) 2.9 K/ L 3.5-10.5 RED BLOOD CELL COUNT (BEAKER) (test sygn=869) 2.25 M/ L 4.63-6.08 HEMOGLOBIN (BEAKER) (test ndvl=757) 7.3 GM/DL 13.7-17.5 HEMATOCRIT (BEAKER) (test bims=549) 21.3 % 40.1-51.0 MEAN CORPUSCULAR VOLUME (BEAKER) (test djfp=039) 94.7 fL 79.0-92.2 MEAN CORPUSCULAR HEMOGLOBIN (BEAKER) (test 32.4 pg 25.7-32.2 zveq=625) MEAN CORPUSCULAR HEMOGLOBIN CONC (BEAKER) (test 34.3 GM/DL 32.3-36.5 hpga=612) RED CELL DISTRIBUTION WIDTH (BEAKER) (test 17.6 % 11.6-14.4 dmfy=257) PLATELET COUNT (BEAKER) (test aurj=609) 59 K/CU MM 150-450 MEAN PLATELET VOLUME (BEAKER) (test yfcv=289) 11.3 fL 9.4-12.4 NUCLEATED RED BLOOD CELLS (BEAKER) (test 0 /100 WBC 0-0 blwo=279) COMPREHENSIVE METABOLIC [id number] 06:49:00 Test Item Value Reference Range Comments TOTAL PROTEIN (BEAKER) 5.3 gm/dL 6.0-8.3 Specimen slightly (test tdyx=467) hemolyzed ALBUMIN (BEAKER) (test 3.3 g/dL 3.5-5.0 Specimen slightly iihf=9569) hemolyzed ALKALINE PHOSPHATASE 81 U/L 40-150 (BEAKER) (test vfsj=764) BILIRUBIN TOTAL (BEAKER) 2.4 mg/dL 0.2-1.2 Specimen slightly (test sqvk=960) hemolyzed SODIUM (BEAKER) (test 127 meq/L 136-145 ytjw=913) POTASSIUM (BEAKER) (test 5.7 meq/L 3.5-5.1 Specimen slightly lkaf=299) hemolyzed CHLORIDE (BEAKER) (test 100 meq/L 98-107 lceu=318) CO2 (BEAKER) (test 20 meq/L 22-29 izdo=136) BLOOD UREA NITROGEN 22 mg/dL 7-21 (BEAKER) (test lsoq=936) CREATININE (BEAKER) (test 1.14 mg/dL 0.57-1.25 Specimen slightly qjcl=370) hemolyzed GLUCOSE RANDOM (BEAKER) 96 mg/dL 70-105 (test qlvz=100) CALCIUM (BEAKER) (test 8.9 mg/dL 8.4-10.2 crep=857) AST (SGOT) (BEAKER) (test 30 U/L 5-34 Specimen slightly lqvj=107) hemolyzed ALT (SGPT) (BEAKER) (test 8 U/L 6-55 Specimen slightly bton=311) hemolyzed EGFR (BEAKER) (test 67 mL/min/1.73 sq m ESTIMATED GFR IS NOT houu=4534) ACCURATE CREATININE CLEARANCE IN PREDICTING GLOMERULAR FILTRATION RATE. ESTIMATED GFR IS NOT APPLICABLE FOR DIALYSIS PATIENTS. Specimen slightly ictericPROTHROMBIN [id number] 06:15:00 Test Item Value Reference Range Comments PROTIME (BEAKER) (test xlak=087) 22.7 seconds 11.7-14.7 INR (BEAKER) (test bvau=270) 2.0 <=5.9 RECOMMENDED COUMADIN/WARFARIN INR THERAPY RANGESSTANDARD DOSE: 2.0 - 3.0 Includes: PROPHYLAXIS forvenous thrombosis, systemic embolization; TREATMENT for venous thrombosis and/or pulmonary embolus.HIGH RISK: Target INR is 2.5-3.5 for patients with mechanical heart valves.VITAMIN B12 AND [id number] 16:39 :00 Test Item Value Reference Range Comments VITAMIN B12 (BEAKER) (test weme=224) 829 pg/mL 213-816 FOLATE (BEAKER) (test flzn=066) 18.9 ng/mL >=7.0 CALCIUM, [id number] 07:14:00 Test Item Value Reference Range Comments CALCIUM IONIZED (BEAKER) (test hkis=052) 1.08 mmol/L 1.12-1.27 PH, BLOOD (BEAKER) (test xxsw=3203) 7.41 COMPREHENSIVE METABOLIC [id number] 07:00:00 Test Item Value Reference Range Comments TOTAL PROTEIN (BEAKER) 5.0 gm/dL 6.0-8.3 (test shmg=416) ALBUMIN (BEAKER) (test 3.1 g/dL 3.5-5.0 eljn=9460) ALKALINE PHOSPHATASE 65 U/L 40-150 (BEAKER) (test vfmr=339) BILIRUBIN TOTAL (BEAKER) 2.5 mg/dL 0.2-1.2 (test ybid=378) SODIUM (BEAKER) (test 127 meq/L 136-145 ykvf=065) POTASSIUM (BEAKER) (test 4.7 meq/L 3.5-5.1 pdwe=293) CHLORIDE (BEAKER) (test 99 meq/L 98-107 nrnn=268) CO2 (BEAKER) (test 23 meq/L 22-29 yomy=477) BLOOD UREA NITROGEN 21 mg/dL 7-21 (BEAKER) (test fwfz=065) CREATININE (BEAKER) (test 1.13 mg/dL 0.57-1.25 cyqi=063) GLUCOSE RANDOM (BEAKER) 92 mg/dL 70-105 (test nkok=307) CALCIUM (BEAKER) (test 8.9 mg/dL 8.4-10.2 nprz=931) AST (SGOT) (BEAKER) (test 18 U/L 5-34 vrjt=139) ALT (SGPT) (BEAKER) (test 8 U/L 6-55 eols=338) EGFR (BEAKER) (test 68 mL/min/1.73 sq m ESTIMATED GFR IS NOT mgkw=1734) ACCURATE CREATININE CLEARANCE IN PREDICTING GLOMERULAR FILTRATION RATE. ESTIMATED GFR IS NOT APPLICABLE FOR DIALYSIS PATIENTS. [id number] 06:37:00 Test Item Value Reference Range Comments PHOSPHORUS (BEAKER) (test vwny=095) 3.2 mg/dL 2.3-4.7 [id number] 06:37:00 Test Item Value Reference Range Comments MAGNESIUM (BEAKER) (test bjgv=526) 1.9 mg/dL 1.6-2.6 CBC (HEMOGRAM ONLY)2018-01-03 06:25:00 Test Item Value Reference Range Comments WHITE BLOOD CELL COUNT (BEAKER) (test rtne=225) 3.1 K/ L 3.5-10.5 RED BLOOD CELL COUNT (BEAKER) (test augw=123) 2.31 M/ L 4.63-6.08 HEMOGLOBIN (BEAKER) (test nlpq=176) 7.4 GM/DL 13.7-17.5 HEMATOCRIT (BEAKER) (test jqkq=994) 21.6 % 40.1-51.0 MEAN CORPUSCULAR VOLUME (BEAKER) (test zeuy=188) 93.5 fL 79.0-92.2 MEAN CORPUSCULAR HEMOGLOBIN (BEAKER) (test 32.0 pg 25.7-32.2 ezzk=100) MEAN CORPUSCULAR HEMOGLOBIN CONC (BEAKER) (test 34.3 GM/DL 32.3-36.5 jmik=929) RED CELL DISTRIBUTION WIDTH (BEAKER) (test 17.4 % 11.6-14.4 ljvz=233) PLATELET COUNT (BEAKER) (test avwl=513) 50 K/CU MM 150-450 MEAN PLATELET VOLUME (BEAKER) (test eiuh=486) 10.5 fL 9.4-12.4 NUCLEATED RED BLOOD CELLS (BEAKER) (test 0 /100 WBC 0-0 guwf=468) PROTHROMBIN [id number] 06:09:00 Test Item Value Reference Range Comments PROTIME (BEAKER) (test vyyo=171) 22.2 seconds 11.7-14.7 INR (BEAKER) (test hwwg=980) 2.0 <=5.9 RECOMMENDED COUMADIN/WARFARIN INR THERAPY RANGESSTANDARD DOSE: 2.0 - 3.0 Includes: PROPHYLAXIS forvenous thrombosis, systemic embolization; TREATMENT for venous thrombosis and/or pulmonary embolus.HIGH RISK: Target INR is 2.5-3.5 for patients with mechanical heart valves.[id number] 07:54:00 Test Item Value Reference Range Comments PHOSPHORUS (BEAKER) (test joku=575) 3.2 mg/dL 2.3-4.7 [id number] 07:54:00 Test Item Value Reference Range Comments MAGNESIUM (BEAKER) (test guhi=975) 1.4 mg/dL 1.6-2.6 COMPREHENSIVE METABOLIC [id number] 07:54:00 Test Item Value Reference Range Comments TOTAL PROTEIN (BEAKER) 5.3 gm/dL 6.0-8.3 (test kxcr=824) ALBUMIN (BEAKER) (test 3.4 g/dL 3.5-5.0 vvka=4258) ALKALINE PHOSPHATASE 55 U/L 40-150 (BEAKER) (test jgyb=145) BILIRUBIN TOTAL (BEAKER) 3.9 mg/dL 0.2-1.2 (test tgze=457) SODIUM (BEAKER) (test 131 meq/L 136-145 rkmg=053) POTASSIUM (BEAKER) (test 4.3 meq/L 3.5-5.1 kteg=616) CHLORIDE (BEAKER) (test 101 meq/L 98-107 xdba=754) CO2 (BEAKER) (test 23 meq/L 22-29 nyjo=084) BLOOD UREA NITROGEN 19 mg/dL 7-21 (BEAKER) (test cgur=712) CREATININE (BEAKER) (test 0.97 mg/dL 0.57-1.25 getm=147) GLUCOSE RANDOM (BEAKER) 80 mg/dL 70-105 (test tobq=825) CALCIUM (BEAKER) (test 9.4 mg/dL 8.4-10.2 jjcr=969) AST (SGOT) (BEAKER) (test 17 U/L 5-34 ipov=983) ALT (SGPT) (BEAKER) (test 8 U/L 6-55 cmbv=881) EGFR (BEAKER) (test 81 mL/min/1.73 sq m ESTIMATED GFR IS NOT cozh=6362) ACCURATE CREATININE CLEARANCE IN PREDICTING GLOMERULAR FILTRATION RATE. ESTIMATED GFR IS NOT APPLICABLE FOR DIALYSIS PATIENTS. Specimen slightly ictericCBC W/PLT COUNT & AUTO [id number] 07:14 :00 Test Item Value Reference Range Comments WHITE BLOOD CELL COUNT (BEAKER) (test mgds=001) 2.9 K/ L 3.5-10.5 RED BLOOD CELL COUNT (BEAKER) (test kmjo=660) 2.55 M/ L 4.63-6.08 HEMOGLOBIN (BEAKER) (test kahu=571) 8.1 GM/DL 13.7-17.5 HEMATOCRIT (BEAKER) (test quto=167) 23.7 % 40.1-51.0 MEAN CORPUSCULAR VOLUME (BEAKER) (test ffen=054) 92.9 fL 79.0-92.2 MEAN CORPUSCULAR HEMOGLOBIN (BEAKER) (test 31.8 pg 25.7-32.2 olal=998) MEAN CORPUSCULAR HEMOGLOBIN CONC (BEAKER) (test 34.2 GM/DL 32.3-36.5 yhrn=378) RED CELL DISTRIBUTION WIDTH (BEAKER) (test 17.5 % 11.6-14.4 bhln=874) PLATELET COUNT (BEAKER) (test fuvz=089) 50 K/CU MM 150-450 MEAN PLATELET VOLUME (BEAKER) (test hici=310) 9.5 fL 9.4-12.4 NUCLEATED RED BLOOD CELLS (BEAKER) (test 0 /100 WBC 0-0 ryeq=727) NEUTROPHILS RELATIVE PERCENT (BEAKER) (test 57 % vdfr=751) LYMPHOCYTES RELATIVE PERCENT (BEAKER) (test 17 % ofqu=889) MONOCYTES RELATIVE PERCENT (BEAKER) (test 18 % xrhu=636) EOSINOPHILS RELATIVE PERCENT (BEAKER) (test 7 % yhej=337) BASOPHILS RELATIVE PERCENT (BEAKER) (test 0 % rquv=679) NEUTROPHILS ABSOLUTE COUNT (BEAKER) (test 1.65 K/ L 1.78-5.38 wiqo=763) LYMPHOCYTES ABSOLUTE COUNT (BEAKER) (test 0.49 K/ L 1.32-3.57 urqx=405) MONOCYTES ABSOLUTE COUNT (BEAKER) (test lfkq=590) 0.51 K/ L 0.30-0.82 EOSINOPHILS ABSOLUTE COUNT (BEAKER) (test 0.20 K/ L 0.04-0.54 siih=297) BASOPHILS ABSOLUTE COUNT (BEAKER) (test rvqt=923) 0.01 K/ L 0.01-0.08 IMMATURE GRANULOCYTES-RELATIVE PERCENT (BEAKER) 1 % 0-1 (test pste=7253) (MANUAL DIFFERENTIAL)2018-01-02 07:14:00 Test Item Value Reference Range Comments TOTAL COUNTED (BEAKER) (test beru=2416) CALCIUM, [id number] 07:04:00 Test Item Value Reference Range Comments CALCIUM IONIZED (BEAKER) (test ljqk=736) 1.07 mmol/L 1.12-1.27 PH, BLOOD (BEAKER) (test quaf=1258) 7.49 PROTHROMBIN [id number] 06:42:00 Test Item Value Reference Range Comments PROTIME (BEAKER) (test hatq=648) 24.6 seconds 11.7-14.7 INR (BEAKER) (test pwgs=049) 2.2 <=5.9 RECOMMENDED COUMADIN/WARFARIN INR THERAPY RANGESSTANDARD DOSE: 2.0 - 3.0 Includes: PROPHYLAXIS forvenous thrombosis, systemic embolization; TREATMENT for venous thrombosis and/or pulmonary embolus.HIGH RISK: Target INR is 2.5-3.5 for patients with mechanical heart valves.CYTOMEGALOVIRUS ANTIBODY, [id number] 14:58:00 Test Item Value Reference Range Comments CYTOMEGALOVIRUS IGG ANTIBODY (BEAKER) (test Positive lszg=210) CYTOMEGALOVIRUS ANTIBODY, [id number] 14:58:00 Test Item Value Reference Range Comments CYTOMEGALOVIRUS IGM ANTIBODY (BEAKER) (test Negative wgsb=726) EBV-VCA ANTIBODY, [id number] 14:58:00 Test Item Value Reference Range Comments MARCELLUS-DAVIS VCA IGG (BEAKER) (test zryk=946) Positive EBV-VCA ANTIBODY, [id number] 14:58:00 Test Item Value Reference Range Comments MARCELLUS-DAVIS VCA IGM (BEAKER) (test ugpw=153) Negative BODY FLUID CELL COUNT WITH [id number] 14:27:00 Test Item Value Reference Range Comments APPEARANCE FLUID (BEAKER) (test dodz=954) Slightly Hazy Clear COLOR FLUID (BEAKER) (test rxtc=080) Yellow Colorless, Straw RBC FLUID (BEAKER) (test oeak=203) 378 /cu mm <=1 ADJUSTED WBC FLUID (BEAKER) (test ldbg=2135) 84 /cu mm <=5 LINING CELLS (BEAKER) (test buqr=2230) 17 /cu mm <=1 NEUTROPHILS FLUID (BEAKER) (test kybe=9931) 1 % LYMPHS FLUID (BEAKER) (test qqsp=244) 14 % MONO/MACROPHAGE FLUID (BEAKER) (test 85 % cjjd=912) EOSINOPHILS FLUID (BEAKER) (test lzsh=310) 0 % BASO FLUID (BEAKER) (test cakv=572) 0 % CONTAINER BODY FLUID (BEAKER) (test EDTA Tube aqqf=8050) U/S, [id number] 11:17:00Reason for exam:->ascitesFINAL REPORT Ultrasound guided paracentesis, 01/01/2018. Clinical History:Ascites. Sedation: None. Junior Linux Administrator: Paul Butler MD Die Cast Supervisor: None. Estimated Blood Loss: < 1 cc. [...] was achieved with 1% lidocaine, a 5 [place] one-step catheter was advanced into the peritoneal cavity under ultrasound guidance. After completion of drainage, the catheter was removed. There was no evidence ofcomplication. Patient Disposition: The patient was transferred to the inpatient unit from the ultrasound department after the paracentesis, in good condition. Impression:Successful ultrasound guided paracentesis. Signed: [facility] Verified Date/Time: 01/01/2018 11:17:26 Reading Location: [address] Ultrasound Reading Room CBC W/PLT COUNT & AUTO [id number] 08:55:00 Test Item Value Reference Range Comments WHITE BLOOD CELL COUNT (BEAKER) (test rguz=583) 2.6 K/ L 3.5-10.5 RED BLOOD CELL COUNT (BEAKER) (test xwar=860) 2.17 M/ L 4.63-6.08 HEMOGLOBIN (BEAKER) (test ghdw=474) 6.9 GM/DL 13.7-17.5 HEMATOCRIT (BEAKER) (test pvmh=050) 20.6 % 40.1-51.0 MEAN CORPUSCULAR VOLUME (BEAKER) (test zexc=588) 94.9 fL 79.0-92.2 MEAN CORPUSCULAR HEMOGLOBIN (BEAKER) (test 31.8 pg 25.7-32.2 qeko=958) MEAN CORPUSCULAR HEMOGLOBIN CONC (BEAKER) (test 33.5 GM/DL 32.3-36.5 fags=172) RED CELL DISTRIBUTION WIDTH (BEAKER) (test 17.0 % 11.6-14.4 drun=652) PLATELET COUNT (BEAKER) (test kzue=356) 43 K/CU MM 150-450 MEAN PLATELET VOLUME (BEAKER) (test asob=768) 9.3 fL 9.4-12.4 NUCLEATED RED BLOOD CELLS (BEAKER) (test 0 /100 WBC 0-0 fdki=979) NEUTROPHILS RELATIVE PERCENT (BEAKER) (test 62 % tpkk=902) LYMPHOCYTES RELATIVE PERCENT (BEAKER) (test 13 % mkvn=738) MONOCYTES RELATIVE PERCENT (BEAKER) (test 18 % tlvb=309) EOSINOPHILS RELATIVE PERCENT (BEAKER) (test 6 % ezia=815) BASOPHILS RELATIVE PERCENT (BEAKER) (test 0 % urge=590) NEUTROPHILS ABSOLUTE COUNT (BEAKER) (test 1.58 K/ L 1.78-5.38 rjeh=449) LYMPHOCYTES ABSOLUTE COUNT (BEAKER) (test 0.33 K/ L 1.32-3.57 aubq=745) MONOCYTES ABSOLUTE COUNT (BEAKER) (test cmpc=534) 0.46 K/ L 0.30-0.82 EOSINOPHILS ABSOLUTE COUNT (BEAKER) (test 0.15 K/ L 0.04-0.54 suxf=425) BASOPHILS ABSOLUTE COUNT (BEAKER) (test ytjq=542) 0.01 K/ L 0.01-0.08 IMMATURE GRANULOCYTES-RELATIVE PERCENT (BEAKER) 1 % 0-1 (test utdy=8029) (MANUAL DIFFERENTIAL)2018-01-01 08:55:00 Test Item Value Reference Range Comments TOTAL COUNTED (BEAKER) (test ioga=6499) CALCIUM, [id number] 07:43:00 Test Item Value Reference Range Comments CALCIUM IONIZED (BEAKER) (test hflx=061) 1.14 mmol/L 1.12-1.27 PH, BLOOD (BEAKER) (test ldrn=2144) 7.52 [id number] 06:11:00 Test Item Value Reference Range Comments PHOSPHORUS (BEAKER) (test gybg=055) 2.5 mg/dL 2.3-4.7 [id number] 06:11:00 Test Item Value Reference Range Comments MAGNESIUM (BEAKER) (test iwfs=519) 1.7 mg/dL 1.6-2.6 COMPREHENSIVE METABOLIC [id number] 06:11:00 Test Item Value Reference Range Comments TOTAL PROTEIN (BEAKER) 5.6 gm/dL 6.0-8.3 (test ekww=620) ALBUMIN (BEAKER) (test 3.6 g/dL 3.5-5.0 cprk=9611) ALKALINE PHOSPHATASE 68 U/L 40-150 (BEAKER) (test vccp=055) BILIRUBIN TOTAL (BEAKER) 2.7 mg/dL 0.2-1.2 (test xoiy=856) SODIUM (BEAKER) (test 132 meq/L 136-145 enji=419) POTASSIUM (BEAKER) (test 4.9 meq/L 3.5-5.1 qxjm=986) CHLORIDE (BEAKER) (test 102 meq/L 98-107 kzfs=634) CO2 (BEAKER) (test 24 meq/L 22-29 jyfp=836) BLOOD UREA NITROGEN 20 mg/dL 7-21 (BEAKER) (test lngr=561) CREATININE (BEAKER) (test 1.17 mg/dL 0.57-1.25 gqjs=351) GLUCOSE RANDOM (BEAKER) 92 mg/dL 70-105 (test rsgn=536) CALCIUM (BEAKER) (test 9.7 mg/dL 8.4-10.2 tsbq=358) AST (SGOT) (BEAKER) (test 16 U/L 5-34 vxhb=400) ALT (SGPT) (BEAKER) (test 8 U/L 6-55 dqxh=245) EGFR (BEAKER) (test 65 mL/min/1.73 sq m ESTIMATED GFR IS NOT vohu=3782) ACCURATE CREATININE CLEARANCE IN PREDICTING GLOMERULAR FILTRATION RATE. ESTIMATED GFR IS NOT APPLICABLE FOR DIALYSIS PATIENTS. Specimen slightly ictericPROTHROMBIN [id number] 06:00:00 Test Item Value Reference Range Comments PROTIME (TUNG) (test fpki=354) 24.0 seconds 11.7-14.7 INR (TUNG) (test fuxo=768) 2.2 <=5.9 RECOMMENDED COUMADIN/WARFARIN INR THERAPY RANGESSTANDARD DOSE: 2.0 - 3.0 Includes: PROPHYLAXIS forvenous thrombosis, systemic embolization; TREATMENT for venous thrombosis and/or pulmonary embolus.HIGH RISK: Target INR is 2.5-3.5 for patients with mechanical heart valves.CT, CHEST, WITHOUT [id number] 19:24:00FINAL REPORT HISTORY: Lung nodule, >=1cm COMPARISON [...] MDReport Verified Date/Time: 12/31/2017 19:24:12 Reading Location: [facility] [id number] Consult Reading Room 07: 24 PMPERIPHERAL BLOOD SMEAR - HOLD [id number] 19:18:00 Test Item Value Reference Range Comments PERIPHERAL SMEAR SAVE (BEAKER) prepared and saved smear, (test yeeo=4492) 12/31/17 RETICULOCYTE [id number] 19:14:00 Test Item Value Reference Range Comments RETICULOCYTE COUNT PCT (BEAKER) (test sixn=001) 3.5 % 0.5-1.8 LACTATE DEHYDROGENASE (LDH)2017-12-31 17:47:00 Test Item Value Reference Range Comments LACTATE DEHYDROGENASE (BEAKER) (test mmtj=348) 112 U/L 125-220 BLOOD GAS, [id number] 17:27:00 Test Item Value Reference Range Comments PH ARTERIAL (BEAKER) (test medw=360) 7.45 7.35-7.45 PCO2 ARTERIAL (BEAKER) (test dkdt=770) 36 mmHg 35-45 PO2 ARTERIAL (BEAKER) (test rhww=750) 76 mmHg 80-90 O2 SATURATION ARTERIAL (BEAKER) (test syhc=681) 96.1 % 96.0-97.0 HCO3 ARTERIAL (BEAKER) (test kdhe=720) 24 mmol/L 21-29 BASE EXCESS ARTERIAL (BEAKER) (test vdob=014) 0.2 mmol/L -2.0-3.0 PATIENT TEMPERATURE (BEAKER) (test duxu=8096) 36.4 C FIO2 (BEAKER) (test hpxu=3453) 21.0 % MYOCARD IMAGING, MULTI, PHARM, [id number] 15:12:00FINAL REPORT PROCEDURE: Rest/Stress MYOCARDIAL PERFUSION SPECT with regadenoson\\XA9\\ CPT CODE: 06484 INDICATION: Liver transplant evaluation HISTORY: Cardiac risk [...] Normal extracardiac tracer distribution. 6. No previous [facility] study for comparison. NONINVASIVE RISK STRATIFICATION: The above findings are considered low risk (<1% annual mortality rate) based on the following criterion:- Normal orsmall myocardial perfusion defect at rest or with stress(JACC. 2012;59(9):857-81.) Signed: Quinten Napier Verified Date/Time: 12/31/2017 15:12:03 Reading Location: [address] Reading Room BILIRUBIN, [id number] 14:10:00 Test Item Value Reference Range Comments BILIRUBIN DIRECT (BEAKER) (test ihic=555) 1.6 mg/dL 0.1-0.5 HEMOGLOBIN AND [id number] 13:22:00 Test Item Value Reference Range Comments HEMOGLOBIN (BEAKER) (test oilo=464) 7.3 GM/DL 13.7-17.5 HEMATOCRIT (BEAKER) (test ejek=737) 21.9 % 40.1-51.0 CBC W/PLT COUNT & AUTO [id number] 11:06:00 Test Item Value Reference Range Comments WHITE BLOOD CELL COUNT (BEAKER) (test xuza=843) 2.2 K/ L 3.5-10.5 RED BLOOD CELL COUNT (BEAKER) (test lhnn=814) 2.07 M/ L 4.63-6.08 HEMOGLOBIN (BEAKER) (test ldvx=685) 6.8 GM/DL 13.7-17.5 HEMATOCRIT (BEAKER) (test wsfu=918) 19.6 % 40.1-51.0 MEAN CORPUSCULAR VOLUME (BEAKER) (test lnen=994) 94.7 fL 79.0-92.2 MEAN CORPUSCULAR HEMOGLOBIN (BEAKER) (test 32.9 pg 25.7-32.2 dkhi=283) MEAN CORPUSCULAR HEMOGLOBIN CONC (BEAKER) (test 34.7 GM/DL 32.3-36.5 vrwe=219) RED CELL DISTRIBUTION WIDTH (BEAKER) (test 16.9 % 11.6-14.4 mayf=763) PLATELET COUNT (BEAKER) (test rxcz=592) 47 K/CU MM 150-450 MEAN PLATELET VOLUME (BEAKER) (test slgz=400) 9.7 fL 9.4-12.4 NUCLEATED RED BLOOD CELLS (BEAKER) (test 0 /100 WBC 0-0 bvyr=386) NEUTROPHILS RELATIVE PERCENT (BEAKER) (test 54 % kwbt=122) LYMPHOCYTES RELATIVE PERCENT (BEAKER) (test 17 % snjy=850) MONOCYTES RELATIVE PERCENT (BEAKER) (test 21 % gder=653) EOSINOPHILS RELATIVE PERCENT (BEAKER) (test 8 % sfbx=991) BASOPHILS RELATIVE PERCENT (BEAKER) (test 1 % vvej=704) NEUTROPHILS ABSOLUTE COUNT (BEAKER) (test 1.17 K/ L 1.78-5.38 iyag=010) LYMPHOCYTES ABSOLUTE COUNT (BEAKER) (test 0.36 K/ L 1.32-3.57 nkkp=886) MONOCYTES ABSOLUTE COUNT (BEAKER) (test vubh=578) 0.45 K/ L 0.30-0.82 EOSINOPHILS ABSOLUTE COUNT (BEAKER) (test 0.17 K/ L 0.04-0.54 awtw=723) BASOPHILS ABSOLUTE COUNT (BEAKER) (test qzjv=115) 0.01 K/ L 0.01-0.08 IMMATURE GRANULOCYTES-RELATIVE PERCENT (BEAKER) 1 % 0-1 (test uavb=8090) (MANUAL DIFFERENTIAL)2017-12-31 11:06:00 Test Item Value Reference Range Comments TOTAL COUNTED (BEAKER) (test mfzc=8094) [id number] 08:37:00 Test Item Value Reference Range Comments PROTIME (BEAKER) (test ablf=191) 24.0 seconds 11.7-14.7 INR (BEAKER) (test odll=461) 2.2 <=5.9 PARTIAL THROMBOPLASTIN TIME (BEAKER) (test 55.2 seconds 22.5-36.0 sncm=933) RECOMMENDED COUMADIN/WARFARIN INR THERAPY RANGESSTANDARD DOSE: 2.0 - 3.0 Includes: PROPHYLAXIS forvenous thrombosis, systemic embolization; TREATMENT for venous thrombosis and/or pulmonary embolus.HIGH RISK: Target INR is 2.5-3.5 for patients with mechanical heart valves.COMPREHENSIVE METABOLIC [id number] 06:37:00 Test Item Value Reference Range Comments TOTAL PROTEIN (BEAKER) 5.7 gm/dL 6.0-8.3 (test nycl=840) ALBUMIN (BEAKER) (test 3.7 g/dL 3.5-5.0 zfzo=5821) ALKALINE PHOSPHATASE 70 U/L 40-150 (BEAKER) (test eeil=736) BILIRUBIN TOTAL (BEAKER) 2.6 mg/dL 0.2-1.2 (test rlgk=314) SODIUM (BEAKER) (test 130 meq/L 136-145 rxvy=972) POTASSIUM (BEAKER) (test 5.2 meq/L 3.5-5.1 csdj=401) CHLORIDE (BEAKER) (test 100 meq/L 98-107 cmop=143) CO2 (BEAKER) (test 25 meq/L 22-29 zhwh=852) BLOOD UREA NITROGEN 20 mg/dL 7-21 (BEAKER) (test cupb=760) CREATININE (BEAKER) (test 1.08 mg/dL 0.57-1.25 knrx=932) GLUCOSE RANDOM (BEAKER) 91 mg/dL 70-105 (test bncr=443) CALCIUM (BEAKER) (test 9.6 mg/dL 8.4-10.2 zzut=667) AST (SGOT) (BEAKER) (test 16 U/L 5-34 sihg=759) ALT (SGPT) (BEAKER) (test 6 U/L 6-55 levc=518) EGFR (BEAKER) (test 72 mL/min/1.73 sq m ESTIMATED GFR IS NOT rhpv=5710) ACCURATE CREATININE CLEARANCE IN PREDICTING GLOMERULAR FILTRATION RATE. ESTIMATED GFR IS NOT APPLICABLE FOR DIALYSIS PATIENTS. Specimen slightly [id number] 06:01:00 Test Item Value Reference Range Comments RPR SCREEN (BEAKER) (test bqbo=187) Nonreactive Nonreactive CRYPTOCOCCAL [id number] 05:59:00 Test Item Value Reference Range Comments CRYPTOCOCCAL ANTIGEN, SERUM (BEAKER) (test Negative Negative, Interference pfxe=5333) RAD, MANDIBLE, MIN 4 [id number] 01:37:00Reason for exam:->liver transplant evalShould this be [...] Barcenas Verified Date/Time: 12/31/2017 01:37:57 Reading Location: [address] Reading Room Electronically signed by: SLICK BARCENAS M.D. on 04/2018 01:37 AMRAD, CHEST, 2 [id number] 23:32:00Reason for exam:-> liver transplant evalShould this [...] Barcenas Verified Date/Time: 12/30/2017 23:32:31 Reading Location: [address] Reading Room HEMOGLOBIN [id number] 22:54:00 Test Item Value Reference Range Comments HEMOGLOBIN A1C (BEAKER) (test ksgj=052) 4.1 % 4.3-6.1 HEPATITIS B SURFACE [id number] 16:31:00 Test Item Value Reference Range Comments HEPATITIS B SURFACE ANTIBODY (BEAKER) (test < mIU/mL <8.0 cuwq=140) HEPATITIS B SURFACE [id number] 16:29:00 Test Item Value Reference Range Comments HEPATITIS B SURFACE ANTIGEN (2) (BEAKER) (test Nonreactive Nonreactive vrvb=3716) HEPATITIS B CORE ANTIBODY, [id number] 16:29:00 Test Item Value Reference Range Comments HEPATITIS B CORE IGM ANTIBODY (BEAKER) (test Nonreactive Nonreactive hsrc=857) HEPATITIS A ANTIBODY, [id number] 16:29:00 Test Item Value Reference Range Comments HEPATITIS A IGM ANTIBODY (BEAKER) (test Nonreactive Nonreactive vmrz=301) HEPATITIS B CORE ANTIBODY, [id number] 16:29:00 Test Item Value Reference Range Comments HEPATITIS B CORE TOTAL ANTIBODY (BEAKER) (test Nonreactive Nonreactive stut=857) [id number] 16:26:00 Test Item Value Reference Range Comments T4 TOTAL (BEAKER) (test mtpu=831) 3.5 ug/dL 4.9-11.7 [id number] 16:26:00 Test Item Value Reference Range Comments T3 TOTAL (BEAKER) (test vfdr=803) 42 ng/dL 48-159 [id number] 16:24:00 Test Item Value Reference Range Comments FERRITIN (BEAKER) (test xecw=387) 1460 ng/mL 5-275 VITAMIN D, [id number] 16:24:00 Test Item Value Reference Range Comments VITAMIN D 25-OH (BEAKER) (test mbvu=4552) 6.9 ng/mL 6.6-49.9 Effective 08/06/2017: Reference Range ChangeNew: 6.6-49.9 ng/mL Previous: 13.0 -47.8 ng/mLRecommended Vitamin D Target Range: 30.0-40.0 ng/[id number] 16: 24:00 Test Item Value Reference Range Comments THYROID STIMULATING HORMONE (BEAKER) (test 1.55 uIU/mL 0.35-4.94 nuzx=716) CARCINOEMBRYONIC ANTIGEN (CEA)2017-12-30 16:24:00 Test Item Value Reference Range Comments CARCINOEMBRYONIC ANTIGEN (BEAKER) (test comz=689) 3.0 ng/mL 0.0-5.0 [id number] 16:23:00 Test Item Value Reference Range Comments PROSTATE SPECIFIC ANTIGEN (BEAKER) (test vhjv=091) 0.1 ng/mL 0.0-4.0 HIV-1 ANTIGEN WITH HIV-1/2 [id number] 16:23:00 Test Item Value Reference Range Comments HIV-1 ANTIGEN WITH HIV 1\\T\\2 ANTIBODY (2) Nonreactive Nonreactive (BEAKER) (test khbv=6455) HEPATITIS C [id number] 16:23:00 Test Item Value Reference Range Comments HEPATITIS C ANTIBODY (BEAKER) (test htlz=501) Nonreactive Nonreactive LIPID [id number] 16:06:00 Test Item Value Reference Range Comments TRIGLYCERIDES (BEAKER) (test vcdl=442) 38 mg/dL CHOLESTEROL (BEAKER) (test akwi=546) 51 mg/dL HDL CHOLESTEROL (BEAKER) (test ikjy=963) 10 mg/dL LDL CHOLESTEROL CALCULATED (BEAKER) (test gsmn=262) 33 mg/dL Triglyceride Reference Range: Low Risk [...] Value Reference Range Comments IRON (BEAKER) (test tbjt=224) 90 ug/dL 40-160 TOTAL IRON BINDING CAPACITY (BEAKER) (test 85 ug/dL 250-450 gida=167) IRON % SATURATION (2) (BEAKER) (test sbwu=5296) 106 % 20-55 [id number] 16:04:00 Test Item Value Reference Range Comments TRANSFERRIN (BEAKER) (test pvbt=082) 65 mg/dL 174-382 Specimen slightly ictericURIC [id number] 16:02:00 Test Item Value Reference Range Comments URIC ACID (BEAKER) (test awan=763) 8.5 mg/dL 2.6-7.2 Specimen slightly [id number] 15:50:00 Test Item Value Reference Range Comments FIBRINOGEN LEVEL (BEAKER) (test kypg=476) 161 mg/dl 225-434 BODY FLUID CULTURE + GRAM [id number] 11:45:00 Test Item Value Reference Range Comments CULTURE (BEAKER) (test ojvt=5018) No growth GRAM STAIN RESULT (BEAKER) (test No WBCs vwxo=3719) GRAM STAIN RESULT (BEAKER) (test No organisms seen frgf=27448) CBC W/PLT COUNT & AUTO [id number] 08:05:00 Test Item Value Reference Range Comments WHITE BLOOD CELL COUNT (BEAKER) (test yexs=831) 2.0 K/ L 3.5-10.5 RED BLOOD CELL COUNT (BEAKER) (test lvww=421) 2.20 M/ L 4.63-6.08 HEMOGLOBIN (BEAKER) (test ynhn=059) 7.1 GM/DL 13.7-17.5 HEMATOCRIT (BEAKER) (test tjfd=018) 20.8 % 40.1-51.0 MEAN CORPUSCULAR VOLUME (BEAKER) (test jtbc=692) 94.5 fL 79.0-92.2 MEAN CORPUSCULAR HEMOGLOBIN (BEAKER) (test 32.3 pg 25.7-32.2 wkqd=837) MEAN CORPUSCULAR HEMOGLOBIN CONC (BEAKER) (test 34.1 GM/DL 32.3-36.5 ughl=879) RED CELL DISTRIBUTION WIDTH (BEAKER) (test 17.0 % 11.6-14.4 evzs=665) PLATELET COUNT (BEAKER) (test zkzs=873) 52 K/CU MM 150-450 MEAN PLATELET VOLUME (BEAKER) (test fnkz=872) 10.7 fL 9.4-12.4 NUCLEATED RED BLOOD CELLS (BEAKER) (test 0 /100 WBC 0-0 nhpk=081) NEUTROPHILS RELATIVE PERCENT (BEAKER) (test 55 % sceo=514) LYMPHOCYTES RELATIVE PERCENT (BEAKER) (test 16 % dwvu=708) MONOCYTES RELATIVE PERCENT (BEAKER) (test 20 % jzsw=841) EOSINOPHILS RELATIVE PERCENT (BEAKER) (test 8 % izcq=402) BASOPHILS RELATIVE PERCENT (BEAKER) (test 1 % ttll=612) NEUTROPHILS ABSOLUTE COUNT (BEAKER) (test 1.10 K/ L 1.78-5.38 uhxg=838) LYMPHOCYTES ABSOLUTE COUNT (BEAKER) (test 0.32 K/ L 1.32-3.57 tisa=724) MONOCYTES ABSOLUTE COUNT (BEAKER) (test vuqi=829) 0.40 K/ L 0.30-0.82 EOSINOPHILS ABSOLUTE COUNT (BEAKER) (test 0.16 K/ L 0.04-0.54 tfkz=678) BASOPHILS ABSOLUTE COUNT (BEAKER) (test ilnb=219) 0.01 K/ L 0.01-0.08 IMMATURE GRANULOCYTES-RELATIVE PERCENT (BEAKER) 1 % 0-1 (test peov=1271) (MANUAL DIFFERENTIAL)2017-12-30 08:05:00 Test Item Value Reference Range Comments TOTAL COUNTED (BEAKER) (test vfji=6897) URINALYSIS W/ [id number] 06:46:00 Test Item Value Reference Range Comments COLOR (BEAKER) (test uaqc=939) Yellow CLARITY (BEAKER) (test gysu=180) Clear SPECIFIC GRAVITY UA (BEAKER) (test nsdq=757) 1.008 1.001-1.035 PH UA (BEAKER) (test aeeu=411) 6.0 5.0-8.0 PROTEIN UA (BEAKER) (test sbos=042) Negative Negative GLUCOSE UA (BEAKER) (test twgj=884) Negative Negative KETONES UA (BEAKER) (test hjsn=298) Negative Negative BILIRUBIN UA (BEAKER) (test ybom=973) Negative Negative BLOOD UA (BEAKER) (test htcd=117) Negative Negative NITRITE UA (BEAKER) (test kott=235) Negative Negative LEUKOCYTE ESTERASE UA (BEAKER) (test apdp=600) Negative Negative UROBILINOGEN UA (BEAKER) (test eche=160) 0.2 mg/dL 0.2-1.0 RBC UA (BEAKER) (test zuja=924) 0 /HPF WBC UA (BEAKER) (test fvcz=655) 0 /HPF HYALINE CASTS (BEAKER) (test eigi=927) 5 /LPF SOURCE(BEAKER) (test iagf=9082) Urine, Voided SODIUM, RANDOM [id number] 06:35:00 Test Item Value Reference Range Comments SODIUM URINE (BEAKER) (test tzxf=760) < meq/L Reference Range: No NormalsPROTEIN, RANDOM [id number] 06:35:00 Test Item Value Reference Range Comments PROTEIN, URINE (BEAKER) (test bqrv=0626) < mg/dL 0-14 [id number] 06:21:00 Test Item Value Reference Range Comments MAGNESIUM (BEAKER) (test 1.8 mg/dL 1.6-2.6 Specimen slightly hemolyzed dovo=773) [id number] 06:21:00 Test Item Value Reference Range Comments PHOSPHORUS (BEAKER) (test 2.9 mg/dL 2.3-4.7 Specimen slightly hemolyzed nxqr=305) COMPREHENSIVE METABOLIC [id number] 06:21:00 Test Item Value Reference Range Comments TOTAL PROTEIN (BEAKER) 5.6 gm/dL 6.0-8.3 Specimen slightly (test hwee=380) hemolyzed ALBUMIN (BEAKER) (test 3.5 g/dL 3.5-5.0 Specimen slightly tdrb=0119) hemolyzed ALKALINE PHOSPHATASE 75 U/L 40-150 (BEAKER) (test coyg=503) BILIRUBIN TOTAL (BEAKER) 3.0 mg/dL 0.2-1.2 Specimen slightly (test cyrr=312) hemolyzed SODIUM (BEAKER) (test 127 meq/L 136-145 cwbf=699) POTASSIUM (BEAKER) (test 5.2 meq/L 3.5-5.1 Specimen slightly potf=644) hemolyzed CHLORIDE (BEAKER) (test 97 meq/L 98-107 ojnb=703) CO2 (BEAKER) (test 24 meq/L 22-29 pgsk=971) BLOOD UREA NITROGEN 22 mg/dL 7-21 (BEAKER) (test jklp=586) CREATININE (BEAKER) (test 1.11 mg/dL 0.57-1.25 Specimen slightly uuid=205) hemolyzed GLUCOSE RANDOM (BEAKER) 94 mg/dL 70-105 (test heeu=405) CALCIUM (BEAKER) (test 9.4 mg/dL 8.4-10.2 cptv=826) AST (SGOT) (BEAKER) (test 22 U/L 5-34 Specimen slightly yuay=582) hemolyzed ALT (SGPT) (BEAKER) (test 7 U/L 6-55 Specimen slightly lrkt=565) hemolyzed EGFR (BEAKER) (test 70 mL/min/1.73 sq m ESTIMATED GFR IS NOT qbhv=6560) ACCURATE CREATININE CLEARANCE IN PREDICTING GLOMERULAR FILTRATION RATE. ESTIMATED GFR IS NOT APPLICABLE FOR DIALYSIS PATIENTS. Specimen slightly ictericCREATININE, RANDOM [id number] 06:19:00 Test Item Value Reference Range Comments CREATININE URINE (BEAKER) (test ftmy=765) 60.6 mg/dL Reference Range: No [id number] 13:43:00 Test Item Value Reference Range Comments ETHANOL (BEAKER) (test ldle=371) < mg/dL <=10 COMPREHENSIVE METABOLIC [id number] 08:23:00 Test Item Value Reference Range Comments TOTAL PROTEIN (BEAKER) 5.5 gm/dL 6.0-8.3 (test fddx=852) ALBUMIN (BEAKER) (test 3.3 g/dL 3.5-5.0 vrvb=0634) ALKALINE PHOSPHATASE 85 U/L 40-150 (BEAKER) (test nqmc=380) BILIRUBIN TOTAL (BEAKER) 3.8 mg/dL 0.2-1.2 (test tbhi=958) SODIUM (BEAKER) (test 125 meq/L 136-145 ryvs=187) POTASSIUM (BEAKER) (test 4.7 meq/L 3.5-5.1 gudr=649) CHLORIDE (BEAKER) (test 96 meq/L 98-107 svyz=178) CO2 (BEAKER) (test 21 meq/L 22-29 otku=415) BLOOD UREA NITROGEN 22 mg/dL 7-21 (BEAKER) (test tgvr=598) CREATININE (BEAKER) (test 1.26 mg/dL 0.57-1.25 untu=275) GLUCOSE RANDOM (BEAKER) 95 mg/dL 70-105 (test swao=425) CALCIUM (BEAKER) (test 9.1 mg/dL 8.4-10.2 cqwu=547) AST (SGOT) (BEAKER) (test 20 U/L 5-34 vbxo=488) ALT (SGPT) (BEAKER) (test 8 U/L 6-55 vibq=504) EGFR (BEAKER) (test 60 mL/min/1.73 sq m ESTIMATED GFR IS NOT nbph=1192) ACCURATE CREATININE CLEARANCE IN PREDICTING GLOMERULAR FILTRATION RATE. ESTIMATED GFR IS NOT APPLICABLE FOR DIALYSIS PATIENTS. Specimen slightly ictericCBC W/PLT COUNT & AUTO [id number] 07:17 :00 Test Item Value Reference Range Comments WHITE BLOOD CELL COUNT (BEAKER) (test ayni=392) 2.8 K/ L 3.5-10.5 RED BLOOD CELL COUNT (BEAKER) (test cyyi=041) 2.28 M/ L 4.63-6.08 HEMOGLOBIN (BEAKER) (test pyhj=287) 7.3 GM/DL 13.7-17.5 HEMATOCRIT (BEAKER) (test sspw=310) 21.4 % 40.1-51.0 MEAN CORPUSCULAR VOLUME (BEAKER) (test zbsu=857) 93.9 fL 79.0-92.2 MEAN CORPUSCULAR HEMOGLOBIN (BEAKER) (test 32.0 pg 25.7-32.2 zvdm=794) MEAN CORPUSCULAR HEMOGLOBIN CONC (BEAKER) (test 34.1 GM/DL 32.3-36.5 oeui=148) RED CELL DISTRIBUTION WIDTH (BEAKER) (test 16.9 % 11.6-14.4 phva=437) PLATELET COUNT (BEAKER) (test qvlw=244) 52 K/CU MM 150-450 MEAN PLATELET VOLUME (BEAKER) (test dotk=481) 9.8 fL 9.4-12.4 NUCLEATED RED BLOOD CELLS (BEAKER) (test 0 /100 WBC 0-0 wyjg=254) NEUTROPHILS RELATIVE PERCENT (BEAKER) (test 61 % jiwo=459) LYMPHOCYTES RELATIVE PERCENT (BEAKER) (test 14 % bfgi=498) MONOCYTES RELATIVE PERCENT (BEAKER) (test 18 % jhzu=223) EOSINOPHILS RELATIVE PERCENT (BEAKER) (test 7 % bovz=804) BASOPHILS RELATIVE PERCENT (BEAKER) (test 0 % uqkw=803) NEUTROPHILS ABSOLUTE COUNT (BEAKER) (test 1.69 K/ L 1.78-5.38 gctw=474) LYMPHOCYTES ABSOLUTE COUNT (BEAKER) (test 0.38 K/ L 1.32-3.57 ippb=673) MONOCYTES ABSOLUTE COUNT (BEAKER) (test zihs=548) 0.51 K/ L 0.30-0.82 EOSINOPHILS ABSOLUTE COUNT (BEAKER) (test 0.18 K/ L 0.04-0.54 kipn=416) BASOPHILS ABSOLUTE COUNT (BEAKER) (test csis=154) 0.01 K/ L 0.01-0.08 IMMATURE GRANULOCYTES-RELATIVE PERCENT (BEAKER) 1 % 0-1 (test nwgg=6227) CT, [id number] 22:20:00FINAL REPORT EXAM: CT of the abdomen [...] MDReport Verified Date/Time: 12/28/2017 22:20:52 Reading Location: [address] Transitional Reading Room CBC W/PLT COUNT & AUTO [id number] 18:06:00 Test Item Value Reference Range Comments WHITE BLOOD CELL COUNT (BEAKER) (test dvnq=137) 2.9 K/ L 3.5-10.5 RED BLOOD CELL COUNT (BEAKER) (test vjzj=879) 2.03 M/ L 4.63-6.08 HEMOGLOBIN (BEAKER) (test wmiw=541) 6.5 GM/DL 13.7-17.5 HEMATOCRIT (BEAKER) (test ukgn=167) 19.2 % 40.1-51.0 MEAN CORPUSCULAR VOLUME (BEAKER) (test wfhv=447) 94.6 fL 79.0-92.2 MEAN CORPUSCULAR HEMOGLOBIN (BEAKER) (test 32.0 pg 25.7-32.2 slap=186) MEAN CORPUSCULAR HEMOGLOBIN CONC (BEAKER) (test 33.9 GM/DL 32.3-36.5 svkt=034) RED CELL DISTRIBUTION WIDTH (BEAKER) (test 17.6 % 11.6-14.4 vkvh=561) PLATELET COUNT (BEAKER) (test xnxd=388) 46 K/CU MM 150-450 MEAN PLATELET VOLUME (BEAKER) (test exnq=235) 9.3 fL 9.4-12.4 NUCLEATED RED BLOOD CELLS (BEAKER) (test 0 /100 WBC 0-0 vdjv=674) NEUTROPHILS RELATIVE PERCENT (BEAKER) (test 66 % qkqr=481) LYMPHOCYTES RELATIVE PERCENT (BEAKER) (test 12 % sxzd=558) MONOCYTES RELATIVE PERCENT (BEAKER) (test 15 % ojqe=625) EOSINOPHILS RELATIVE PERCENT (BEAKER) (test 6 % pqcz=693) BASOPHILS RELATIVE PERCENT (BEAKER) (test 0 % fkyx=897) NEUTROPHILS ABSOLUTE COUNT (BEAKER) (test 1.92 K/ L 1.78-5.38 hfho=110) LYMPHOCYTES ABSOLUTE COUNT (BEAKER) (test 0.36 K/ L 1.32-3.57 adfa=740) MONOCYTES ABSOLUTE COUNT (BEAKER) (test phje=398) 0.44 K/ L 0.30-0.82 EOSINOPHILS ABSOLUTE COUNT (BEAKER) (test 0.16 K/ L 0.04-0.54 ypam=173) BASOPHILS ABSOLUTE COUNT (BEAKER) (test clug=979) 0.01 K/ L 0.01-0.08 IMMATURE GRANULOCYTES-RELATIVE PERCENT (BEAKER) 1 % 0-1 (test jctr=7993) CBC W/PLT COUNT & AUTO [id number] 12:30:00 Test Item Value Reference Range Comments WHITE BLOOD CELL COUNT (BEAKER) (test dtez=815) 3.1 K/ L 3.5-10.5 RED BLOOD CELL COUNT (BEAKER) (test uyle=957) 2.09 M/ L 4.63-6.08 HEMOGLOBIN (BEAKER) (test muht=280) 6.8 GM/DL 13.7-17.5 HEMATOCRIT (BEAKER) (test mvwl=982) 19.9 % 40.1-51.0 MEAN CORPUSCULAR VOLUME (BEAKER) (test jmkx=098) 95.2 fL 79.0-92.2 MEAN CORPUSCULAR HEMOGLOBIN (BEAKER) (test 32.5 pg 25.7-32.2 iabq=391) MEAN CORPUSCULAR HEMOGLOBIN CONC (BEAKER) (test 34.2 GM/DL 32.3-36.5 odwv=741) RED CELL DISTRIBUTION WIDTH (BEAKER) (test 17.5 % 11.6-14.4 yznk=078) PLATELET COUNT (BEAKER) (test pixi=650) 65 K/CU MM 150-450 MEAN PLATELET VOLUME (BEAKER) (test svix=646) 10.6 fL 9.4-12.4 NUCLEATED RED BLOOD CELLS (BEAKER) (test 0 /100 WBC 0-0 rveg=366) NEUTROPHILS RELATIVE PERCENT (BEAKER) (test 60 % whzs=351) LYMPHOCYTES RELATIVE PERCENT (BEAKER) (test 14 % bugf=214) MONOCYTES RELATIVE PERCENT (BEAKER) (test 17 % rybx=060) EOSINOPHILS RELATIVE PERCENT (BEAKER) (test 8 % iqjp=373) BASOPHILS RELATIVE PERCENT (BEAKER) (test 0 % yefg=074) NEUTROPHILS ABSOLUTE COUNT (BEAKER) (test 1.85 K/ L 1.78-5.38 vubu=193) LYMPHOCYTES ABSOLUTE COUNT (BEAKER) (test 0.42 K/ L 1.32-3.57 cuhb=598) MONOCYTES ABSOLUTE COUNT (BEAKER) (test aodi=481) 0.52 K/ L 0.30-0.82 EOSINOPHILS ABSOLUTE COUNT (BEAKER) (test 0.26 K/ L 0.04-0.54 ijte=281) BASOPHILS ABSOLUTE COUNT (BEAKER) (test kald=345) 0.01 K/ L 0.01-0.08 IMMATURE GRANULOCYTES-RELATIVE PERCENT (BEAKER) 1 % 0-1 (test kpxx=0020) U/S, [id number] 06:59:00Limit fluid removal to no more than 5 litersReason for exam:->ascites, concern for sbpShould thisbe performed at the bedside?->NoFINAL REPORT Paracentesis dated 2017 Procedure: Ultrasound-guided paracentesis. Preprocedure diagnosis: Ascites Postprocedure diagnosis: Ascites Conscious sedation: None. Radiologist: Lena Lynn M.D. Die Cast Supervisor: None Anesthesia: 1% Xylocaine mixed with sodium bicarbonate local anesthesia. Technique: After obtaining informed consent, ultrasound-guided paracentesis was performed under usual sterile technique. Using a 5 croatian drainage catheter, puncture was made in the right lower quadrant abdomen. Approximately 5000 cc of serous fluid was removed. Patient tolerated the procedure well without complication. Complication: None Graft/ Implant: None Estimated Blood Loss: NoneImpression: Ultrasound-guided paracentesis. Signed: Lena Lynn Verified Date/Time: 12/28/2017 06:59 :16 Reading Location: [facility] B1 C013Y CT Body Reading Room ALPHA FETOPROTEIN (AFP), TUMOR [id number] 06:22:00 Test Item Value Reference Range Comments ALPHA-FETOPROTEIN (BEAKER) (test wsaw=2600) 4.1 ng/mL <10.0 COMPREHENSIVE METABOLIC [id number] 06:00:00 Test Item Value Reference Range Comments TOTAL PROTEIN (BEAKER) 5.3 gm/dL 6.0-8.3 (test imok=584) ALBUMIN (BEAKER) (test 2.7 g/dL 3.5-5.0 fvne=0469) ALKALINE PHOSPHATASE 94 U/L 40-150 (BEAKER) (test qsye=680) BILIRUBIN TOTAL (BEAKER) 3.7 mg/dL 0.2-1.2 (test ksvx=195) SODIUM (BEAKER) (test 124 meq/L 136-145 kevq=015) POTASSIUM (BEAKER) (test 4.6 meq/L 3.5-5.1 zgpl=489) CHLORIDE (BEAKER) (test 96 meq/L 98-107 oobj=306) CO2 (BEAKER) (test 22 meq/L 22-29 uwrq=481) BLOOD UREA NITROGEN 22 mg/dL 7-21 (BEAKER) (test xspf=820) CREATININE (BEAKER) (test 1.40 mg/dL 0.57-1.25 dawg=812) GLUCOSE RANDOM (BEAKER) 89 mg/dL 70-105 (test lelu=104) CALCIUM (BEAKER) (test 8.8 mg/dL 8.4-10.2 ease=447) AST (SGOT) (BEAKER) (test 25 U/L 5-34 bgpw=862) ALT (SGPT) (BEAKER) (test 10 U/L 6-55 pabf=296) EGFR (BEAKER) (test 53 mL/min/1.73 sq m ESTIMATED GFR IS NOT xsym=2511) ACCURATE CREATININE CLEARANCE IN PREDICTING GLOMERULAR FILTRATION RATE. ESTIMATED GFR IS NOT APPLICABLE FOR DIALYSIS PATIENTS. Specimen slightly ictericCBC W/PLT COUNT & AUTO [id number] 05:50 :00 Test Item Value Reference Range Comments WHITE BLOOD CELL COUNT (BEAKER) (test ultx=642) 3.1 K/ L 3.5-10.5 RED BLOOD CELL COUNT (BEAKER) (test orwm=756) 2.00 M/ L 4.63-6.08 HEMOGLOBIN (BEAKER) (test thuf=360) 6.4 GM/DL 13.7-17.5 HEMATOCRIT (BEAKER) (test fezq=628) 18.9 % 40.1-51.0 MEAN CORPUSCULAR VOLUME (BEAKER) (test wntp=553) 94.5 fL 79.0-92.2 MEAN CORPUSCULAR HEMOGLOBIN (BEAKER) (test 32.0 pg 25.7-32.2 udmk=448) MEAN CORPUSCULAR HEMOGLOBIN CONC (BEAKER) (test 33.9 GM/DL 32.3-36.5 nlgu=377) RED CELL DISTRIBUTION WIDTH (BEAKER) (test 17.9 % 11.6-14.4 dmxs=526) PLATELET COUNT (BEAKER) (test esxh=430) 59 K/CU MM 150-450 MEAN PLATELET VOLUME (BEAKER) (test mhmp=986) 10.4 fL 9.4-12.4 NUCLEATED RED BLOOD CELLS (BEAKER) (test 0 /100 WBC 0-0 hljs=676) NEUTROPHILS RELATIVE PERCENT (BEAKER) (test 63 % zfkm=080) LYMPHOCYTES RELATIVE PERCENT (BEAKER) (test 14 % quav=966) MONOCYTES RELATIVE PERCENT (BEAKER) (test 15 % odpl=520) EOSINOPHILS RELATIVE PERCENT (BEAKER) (test 7 % dtol=881) BASOPHILS RELATIVE PERCENT (BEAKER) (test 0 % enxz=674) NEUTROPHILS ABSOLUTE COUNT (BEAKER) (test 1.94 K/ L 1.78-5.38 vlku=275) LYMPHOCYTES ABSOLUTE COUNT (BEAKER) (test 0.44 K/ L 1.32-3.57 mxbb=739) MONOCYTES ABSOLUTE COUNT (BEAKER) (test lpvr=621) 0.47 K/ L 0.30-0.82 EOSINOPHILS ABSOLUTE COUNT (BEAKER) (test 0.21 K/ L 0.04-0.54 ormz=839) BASOPHILS ABSOLUTE COUNT (BEAKER) (test lteq=781) 0.01 K/ L 0.01-0.08 IMMATURE GRANULOCYTES-RELATIVE PERCENT (BEAKER) 1 % 0-1 (test hbrb=2649) BODY FLUID CELL COUNT WITH [id number] 20:39:00 Test Item Value Reference Range Comments APPEARANCE FLUID (BEAKER) (test byed=525) Slightly Hazy Clear COLOR FLUID (BEAKER) (test ozbn=265) Yellow Colorless, Straw RBC FLUID (BEAKER) (test vfqy=559) 90 /cu mm <=1 ADJUSTED WBC FLUID (BEAKER) (test phis=2372) 47 /cu mm <=5 LINING CELLS (BEAKER) (test clds=7504) 3 /cu mm <=1 NEUTROPHILS FLUID (BEAKER) (test barn=3569) 2 % LYMPHS FLUID (BEAKER) (test pgnf=768) 19 % MONO/MACROPHAGE FLUID (BEAKER) (test 79 % qeco=806) EOSINOPHILS FLUID (BEAKER) (test gndz=264) 0 % BASO FLUID (BEAKER) (test lvnh=833) 0 % CONTAINER BODY FLUID (BEAKER) (test EDTA Tube tohr=8123) ALBUMIN, BODY [id number] 20:14:00 Test Item Value Reference Range Comments ALBUMIN FLUID (BEAKER) (test ldtf=914) 0.4 gm/dL Reference Range: No Normals Assay performance has not been validated for this type of specimen.BASIC METABOLIC [id number] 10:31:00 Test Item Value Reference Range Comments SODIUM (BEAKER) (test 125 meq/L 136-145 lnri=270) POTASSIUM (BEAKER) (test 4.5 meq/L 3.5-5.1 iwko=283) CHLORIDE (BEAKER) (test 98 meq/L 98-107 dahs=238) CO2 (BEAKER) (test 20 meq/L 22-29 ryus=111) BLOOD UREA NITROGEN 22 mg/dL 7-21 (BEAKER) (test eyzp=267) CREATININE (BEAKER) (test 1.45 mg/dL 0.57-1.25 dmzt=005) GLUCOSE RANDOM (BEAKER) 87 mg/dL 70-105 (test quxx=273) CALCIUM (BEAKER) (test 8.6 mg/dL 8.4-10.2 cbkn=718) EGFR (BEAKER) (test 51 mL/min/1.73 sq m ESTIMATED GFR IS NOT kjmv=5734) ACCURATE CREATININE CLEARANCE IN PREDICTING GLOMERULAR FILTRATION RATE. ESTIMATED GFR IS NOT APPLICABLE FOR DIALYSIS PATIENTS. Specimen slightly ictericHEPATIC FUNCTION [id number] 10:31:00 Test Item Value Reference Range Comments TOTAL PROTEIN (BEAKER) (test ovea=883) 5.8 gm/dL 6.0-8.3 ALBUMIN (BEAKER) (test mtgy=0496) 2.4 g/dL 3.5-5.0 BILIRUBIN TOTAL (BEAKER) (test nfjg=523) 4.1 mg/dL 0.2-1.2 BILIRUBIN DIRECT (BEAKER) (test usiu=042) 3.1 mg/dL 0.1-0.5 ALKALINE PHOSPHATASE (BEAKER) (test lyck=455) 126 U/L 40-150 AST (SGOT) (BEAKER) (test jfud=752) 28 U/L 5-34 ALT (SGPT) (BEAKER) (test bpob=201) 13 U/L 6-55 Specimen slightly ictericCBC W/PLT COUNT & AUTO [id number] 10:09 :00 Test Item Value Reference Range Comments WHITE BLOOD CELL COUNT (BEAKER) (test ikbs=208) 5.5 K/ L 3.5-10.5 RED BLOOD CELL COUNT (BEAKER) (test yyfn=092) 2.56 M/ L 4.63-6.08 HEMOGLOBIN (BEAKER) (test pgzv=772) 8.1 GM/DL 13.7-17.5 HEMATOCRIT (BEAKER) (test scqa=802) 24.2 % 40.1-51.0 MEAN CORPUSCULAR VOLUME (BEAKER) (test rgbb=591) 94.5 fL 79.0-92.2 MEAN CORPUSCULAR HEMOGLOBIN (BEAKER) (test 31.6 pg 25.7-32.2 waxb=575) MEAN CORPUSCULAR HEMOGLOBIN CONC (BEAKER) (test 33.5 GM/DL 32.3-36.5 pqif=942) RED CELL DISTRIBUTION WIDTH (BEAKER) (test 18.6 % 11.6-14.4 tmlb=410) PLATELET COUNT (BEAKER) (test cqgp=336) 86 K/CU MM 150-450 MEAN PLATELET VOLUME (BEAKER) (test xdax=384) 9.7 fL 9.4-12.4 NUCLEATED RED BLOOD CELLS (BEAKER) (test 0 /100 WBC 0-0 yshv=353) NEUTROPHILS RELATIVE PERCENT (BEAKER) (test 65 % hbyn=318) LYMPHOCYTES RELATIVE PERCENT (BEAKER) (test 13 % rfyz=316) MONOCYTES RELATIVE PERCENT (BEAKER) (test 14 % woiy=729) EOSINOPHILS RELATIVE PERCENT (BEAKER) (test 6 % txxu=724) BASOPHILS RELATIVE PERCENT (BEAKER) (test 0 % hqcm=279) NEUTROPHILS ABSOLUTE COUNT (BEAKER) (test 3.59 K/ L 1.78-5.38 jzvn=514) LYMPHOCYTES ABSOLUTE COUNT (BEAKER) (test 0.73 K/ L 1.32-3.57 mllm=371) MONOCYTES ABSOLUTE COUNT (BEAKER) (test mocl=053) 0.76 K/ L 0.30-0.82 EOSINOPHILS ABSOLUTE COUNT (BEAKER) (test 0.33 K/ L 0.04-0.54 jeck=459) BASOPHILS ABSOLUTE COUNT (BEAKER) (test kjxm=176) 0.02 K/ L 0.01-0.08 IMMATURE GRANULOCYTES-RELATIVE PERCENT (BEAKER) 1 % 0-1 (test croq=0470) PROTHROMBIN [id number] 07:51:00 Test Item Value Reference Range Comments PROTIME (BEAKER) (test eewr=774) 23.8 seconds 11.7-14.7 INR (BEAKER) (test mkzx=159) 2.1 <=5.9 RECOMMENDED COUMADIN/WARFARIN INR THERAPY RANGESSTANDARD DOSE: 2.0 - 3.0 Includes: PROPHYLAXIS forvenous thrombosis, systemic embolization; TREATMENT for venous thrombosis and/or pulmonary embolus.HIGH RISK: Target INR is 2.5-3.5 for patients with mechanical heart valves.BLOOD [id number] 05:02:00 Test Item Value Reference Range Comments CULTURE (BEAKER) (test htdk=8634) No growth in 5 days BLOOD [id number] 05:02:00 Test Item Value Reference Range Comments CULTURE (BEAKER) (test fwvu=1644) No growth in 5 days BODY FLUID CULTURE + GRAM [id number] 09:05:00 Test Item Value Reference Range Comments CULTURE (BEAKER) (test ppqs=6380) No growth GRAM STAIN RESULT (BEAKER) (test No White blood cells seen twqz=2360) GRAM STAIN RESULT (BEAKER) (test No organisms seen peik=62786) RAPID DRUG SCREEN, [id number] 23:13:00 Test Item Value Reference Range Comments BARBITURATE URINE (BEAKER) (test ckyp=658) Negative Negative BENZODIAZEPINE SCREEN URINE (BEAKER) (test Negative Negative lohm=702) COCAINE (METAB.) SCREEN (BEAKER) (test iwor=1076) Negative Negative METHADONE SCREEN (BEAKER) (test dvvd=0349) Negative Negative OPIATE SCREEN URINE (BEAKER) (test jamk=947) Negative Negative CANNABINOID SCREEN URINE (BEAKER) (test zbdh=708) Negative Negative AMPH/METHAMPH SCREEN (BEAKER) (test pljh=5354) Negative Negative PHENCYCLIDINE SCREEN URINE (BEAKER) (test mbtv=055) Negative Negative OXYCODONE SCREEN URINE (BEAKER) (test hjcb=9832) Negative Negative DRUG CUTOFF CONC.Cocaine 300 ng/mL Cannabinoid 50 ng/mL Benzodiazepine 200 ng/mLBarbiturate 200 ng/ mLPhencyclidine 25 ng/mLOpiate 300 ng/mLMethadone 300 ng/mLAmphetamine/ 1000 ng/mL MethamphetamineOxycodone 300 ng/mLThis assay provides an unconfirmed qualitative test result for the clinical management of patients in emergency situations. Chain of custody not maintained. Some zizg-nea-xdfbcwo medications, as well as adulterants, may cause inaccurate results. Clinical correlation should be applied. A more comprehensive drug screen or confirmation of a detected drug may be performed upon request.MR, ABDOMEN, [id number] 13:52:00FINAL REPORT MRI of the abdomen with [...] MDRort Verified Date/Time: 09/05/2017 13:52:35 Reading Location: [facility] C013Y CT BodyReading Room CBC W/PLT COUNT & AUTO [id number] 05:46:00 Test Item Value Reference Range Comments WHITE BLOOD CELL COUNT (BEAKER) (test zbbg=985) 4.7 K/ L 3.5-10.5 RED BLOOD CELL COUNT (BEAKER) (test igxz=644) 2.49 M/ L 4.63-6.08 HEMOGLOBIN (BEAKER) (test nmom=877) 7.9 GM/DL 13.7-17.5 HEMATOCRIT (BEAKER) (test wmvn=529) 22.6 % 40.1-51.0 MEAN CORPUSCULAR VOLUME (BEAKER) (test lypp=966) 90.8 fL 79.0-92.2 MEAN CORPUSCULAR HEMOGLOBIN (BEAKER) (test 31.7 pg 25.7-32.2 uohr=512) MEAN CORPUSCULAR HEMOGLOBIN CONC (BEAKER) (test 35.0 GM/DL 32.3-36.5 ozyk=866) RED CELL DISTRIBUTION WIDTH (BEAKER) (test 18.8 % 11.6-14.4 xjnp=121) PLATELET COUNT (BEAKER) (test dviz=207) 60 K/CU MM 150-450 MEAN PLATELET VOLUME (BEAKER) (test oyuc=912) 9.2 fL 9.4-12.4 NUCLEATED RED BLOOD CELLS (BEAKER) (test 0 /100 WBC 0-0 yuyd=815) NEUTROPHILS RELATIVE PERCENT (BEAKER) (test 65 % dkzn=429) LYMPHOCYTES RELATIVE PERCENT (BEAKER) (test 13 % hqaq=040) MONOCYTES RELATIVE PERCENT (BEAKER) (test 15 % mknd=415) EOSINOPHILS RELATIVE PERCENT (BEAKER) (test 6 % tnad=496) BASOPHILS RELATIVE PERCENT (BEAKER) (test 0 % ctib=429) NEUTROPHILS ABSOLUTE COUNT (BEAKER) (test 3.05 K/ L 1.78-5.38 atok=723) LYMPHOCYTES ABSOLUTE COUNT (BEAKER) (test 0.62 K/ L 1.32-3.57 mvsv=289) MONOCYTES ABSOLUTE COUNT (BEAKER) (test npcm=178) 0.68 K/ L 0.30-0.82 EOSINOPHILS ABSOLUTE COUNT (BEAKER) (test 0.28 K/ L 0.04-0.54 ztxs=167) BASOPHILS ABSOLUTE COUNT (BEAKER) (test bgue=130) 0.02 K/ L 0.01-0.08 IMMATURE GRANULOCYTES-RELATIVE PERCENT (BEAKER) 1 % 0-1 (test mavv=4424) BASIC METABOLIC [id number] 05:44:00 Test Item Value Reference Range Comments SODIUM (BEAKER) (test 127 meq/L 136-145 gviq=150) POTASSIUM (BEAKER) (test 4.5 meq/L 3.5-5.1 cyrd=187) CHLORIDE (BEAKER) (test 101 meq/L 98-107 ghny=161) CO2 (BEAKER) (test 19 meq/L 22-29 frpv=124) BLOOD UREA NITROGEN 17 mg/dL 7-21 (BEAKER) (test kxyr=657) CREATININE (BEAKER) (test 0.91 mg/dL 0.57-1.25 iccb=837) GLUCOSE RANDOM (BEAKER) 107 mg/dL 70-105 (test kibg=510) CALCIUM (BEAKER) (test 9.4 mg/dL 8.4-10.2 nsui=175) EGFR (BEAKER) (test 87 mL/min/1.73 sq m ESTIMATED GFR IS NOT qbmc=0829) ACCURATE CREATININE CLEARANCE IN PREDICTING GLOMERULAR FILTRATION RATE. ESTIMATED GFR IS NOT APPLICABLE FOR DIALYSIS PATIENTS. Specimen moderately ictericHEPATIC FUNCTION [id number] 05:44:00 Test Item Value Reference Range Comments TOTAL PROTEIN (BEAKER) (test iwzv=080) 5.6 gm/dL 6.0-8.3 ALBUMIN (BEAKER) (test ttxr=9613) 3.3 g/dL 3.5-5.0 BILIRUBIN TOTAL (BEAKER) (test sotd=888) 10.3 mg/dL 0.2-1.2 BILIRUBIN DIRECT (BEAKER) (test nfrw=807) 6.8 mg/dL 0.1-0.5 ALKALINE PHOSPHATASE (BEAKER) (test iugb=179) 103 U/L 40-150 AST (SGOT) (BEAKER) (test uvty=086) 17 U/L 5-34 ALT (SGPT) (BEAKER) (test ioiu=485) 8 U/L 6-55 Specimen moderately ictericPT/[id number] 05:31:00 Test Item Value Reference Range Comments PROTIME (BEAKER) (test jvaf=363) 25.6 seconds 11.7-14.7 INR (BEAKER) (test vffi=368) 2.3 <=5.9 PARTIAL THROMBOPLASTIN TIME (BEAKER) (test 51.6 seconds 22.5-36.0 vuhv=756) RECOMMENDED COUMADIN/WARFARIN INR THERAPY RANGESSTANDARD DOSE: 2.0 - 3.0 Includes: PROPHYLAXIS forvenous thrombosis, systemic embolization; TREATMENT for venous thrombosis and/or pulmonary embolus.HIGH RISK: Target INR is 2.5-3.5 for patients with mechanical heart valves.PROTHROMBIN [id number] 05:30: 00 Test Item Value Reference Range Comments PROTIME (BEAKER) (test kaoh=844) 25.6 seconds 11.7-14.7 INR (BEAKER) (test aeep=430) 2.3 <=5.9 RECOMMENDED COUMADIN/WARFARIN INR THERAPY RANGESSTANDARD DOSE: 2.0 - 3.0 Includes: PROPHYLAXIS forvenous thrombosis, systemic embolization; TREATMENT for venous thrombosis and/or pulmonary embolus.HIGH RISK: Target INR is 2.5-3.5 for patients with mechanical heart valves.BODY FLUID CELL COUNT WITH [id number] 19:30:00 Test Item Value Reference Range Comments APPEARANCE FLUID (BEAKER) (test vhwz=646) Slightly Hazy Clear COLOR FLUID (BEAKER) (test cmrs=948) Yellow Colorless, Straw RBC FLUID (BEAKER) (test wsqk=965) 100 /cu mm <=1 ADJUSTED WBC FLUID (BEAKER) (test labe=9466) 36 /cu mm <=5 LINING CELLS (BEAKER) (test rykk=2027) 4 /cu mm <=1 NEUTROPHILS FLUID (BEAKER) (test rffe=9469) 0 % LYMPHS FLUID (BEAKER) (test iraq=337) 20 % MONO/MACROPHAGE FLUID (BEAKER) (test 80 % raip=317) EOSINOPHILS FLUID (BEAKER) (test nxcm=047) 0 % BASO FLUID (BEAKER) (test hivc=818) 0 % CONTAINER BODY FLUID (BEAKER) (test EDTA Tube ikth=7925) U/S, [id number] 16:21:00Reason for exam:->ascitesShould this be performed at the bedside?->NoFINAL REPORT PROCEDURE: Ultrasound-guided paracentesis. INDICATION: 52-year-old man with ascites. DESCRIPTION: After obtaining informed written consent, ultrasound scan of the abdomen identified ascites in the right lower quadrant. The overlying skin was prepped and draped in the usual, sterile fashion and local 1% lidocaine anesthesia was administered. A 5 [place] catheter was advanced into the peritoneal cavity and 13,200 cc of cloudy yellow fluid was removed. The catheter was removed without immediate complication. Samples were sent for analysis. IMPRESSION:Uncomplicated ultrasound-guided paracentesis with 13,200 cc fluid removed. Signed: Candice Mckeon Verified Date/Time: 2016 16:21:22 Reading Location: [address] Ultrasound Reading Room BASI METABOLIC [id number] 11:07:00 Test Item Value Reference Range Comments SODIUM (BEAKER) (test 127 meq/L 136-145 uslm=569) POTASSIUM (BEAKER) (test 4.1 meq/L 3.5-5.1 svjq=334) CHLORIDE (BEAKER) (test 101 meq/L 98-107 urvt=921) CO2 (BEAKER) (test 23 meq/L 22-29 nrpj=089) BLOOD UREA NITROGEN 17 mg/dL 7-21 (BEAKER) (test xzuj=954) CREATININE (BEAKER) (test 1.06 mg/dL 0.57-1.25 gpfw=481) GLUCOSE RANDOM (BEAKER) 104 mg/dL 70-105 (test vsir=219) CALCIUM (BEAKER) (test 8.9 mg/dL 8.4-10.2 pxqi=631) EGFR (BEAKER) (test 73 mL/min/1.73 sq m ESTIMATED GFR IS NOT hunn=0063) ACCURATE CREATININE CLEARANCE IN PREDICTING GLOMERULAR FILTRATION RATE. ESTIMATED GFR IS NOT APPLICABLE FOR DIALYSIS PATIENTS. Specimen markedly ictericHEPATIC FUNCTION [id number] 11:07:00 Test Item Value Reference Range Comments TOTAL PROTEIN (BEAKER) (test uuhd=137) 5.4 gm/dL 6.0-8.3 ALBUMIN (BEAKER) (test bozf=8766) 2.8 g/dL 3.5-5.0 BILIRUBIN TOTAL (BEAKER) (test imut=509) 12.7 mg/dL 0.2-1.2 BILIRUBIN DIRECT (BEAKER) (test rumg=518) 7.8 mg/dL 0.1-0.5 ALKALINE PHOSPHATASE (BEAKER) (test rtiq=447) 90 U/L 40-150 AST (SGOT) (BEAKER) (test zlej=574) 22 U/L 5-34 ALT (SGPT) (BEAKER) (test jisg=377) 11 U/L 6-55 Specimen markedly ictericPT/[id number] 11:02:00 Test Item Value Reference Range Comments PROTIME (BEAKER) (test eqwn=502) 23.4 seconds 11.7-14.7 INR (BEAKER) (test tjxw=209) 2.1 <=5.9 PARTIAL THROMBOPLASTIN TIME (BEAKER) (test 48.7 seconds 22.5-36.0 woqh=411) RECOMMENDED COUMADIN/WARFARIN INR THERAPY RANGESSTANDARD DOSE: 2.0 - 3.0 Includes: PROPHYLAXIS forvenous thrombosis, systemic embolization; TREATMENT for venous thrombosis and/or pulmonary embolus.HIGH RISK: Target INR is 2.5-3.5 for patients with mechanical heart valves.PROTHROMBIN [id number] 11:01: 00 Test Item Value Reference Range Comments PROTIME (BEAKER) (test dtsb=585) 23.4 seconds 11.7-14.7 INR (BEAKER) (test ghln=237) 2.1 <=5.9 RECOMMENDED COUMADIN/WARFARIN INR THERAPY RANGESSTANDARD DOSE: 2.0 - 3.0 Includes: PROPHYLAXIS forvenous thrombosis, systemic embolization; TREATMENT for venous thrombosis and/or pulmonary embolus.HIGH RISK: Target INR is 2.5-3.5 for patients with mechanical heart valves.CBC W/PLT COUNT & AUTO [id number] 10:56:00 Test Item Value Reference Range Comments WHITE BLOOD CELL COUNT (BEAKER) (test riwm=036) 4.4 K/ L 3.5-10.5 RED BLOOD CELL COUNT (BEAKER) (test hdxq=511) 2.48 M/ L 4.63-6.08 HEMOGLOBIN (BEAKER) (test hmwe=330) 7.8 GM/DL 13.7-17.5 HEMATOCRIT (BEAKER) (test dmlo=620) 22.7 % 40.1-51.0 MEAN CORPUSCULAR VOLUME (BEAKER) (test wkdo=381) 91.5 fL 79.0-92.2 MEAN CORPUSCULAR HEMOGLOBIN (BEAKER) (test 31.5 pg 25.7-32.2 qslb=541) MEAN CORPUSCULAR HEMOGLOBIN CONC (BEAKER) (test 34.4 GM/DL 32.3-36.5 tsei=448) RED CELL DISTRIBUTION WIDTH (BEAKER) (test 18.6 % 11.6-14.4 doif=132) PLATELET COUNT (BEAKER) (test tnjt=208) 60 K/CU MM 150-450 MEAN PLATELET VOLUME (BEAKER) (test zgdu=395) 8.8 fL 9.4-12.4 NUCLEATED RED BLOOD CELLS (BEAKER) (test 0 /100 WBC 0-0 kfev=477) NEUTROPHILS RELATIVE PERCENT (BEAKER) (test 61 % jfpm=844) LYMPHOCYTES RELATIVE PERCENT (BEAKER) (test 9 % quco=991) MONOCYTES RELATIVE PERCENT (BEAKER) (test 21 % zoku=048) EOSINOPHILS RELATIVE PERCENT (BEAKER) (test 8 % bdnn=651) BASOPHILS RELATIVE PERCENT (BEAKER) (test 1 % exaw=831) NEUTROPHILS ABSOLUTE COUNT (BEAKER) (test 2.68 K/ L 1.78-5.38 nvob=790) LYMPHOCYTES ABSOLUTE COUNT (BEAKER) (test 0.38 K/ L 1.32-3.57 aiqu=407) MONOCYTES ABSOLUTE COUNT (BEAKER) (test vief=668) 0.94 K/ L 0.30-0.82 EOSINOPHILS ABSOLUTE COUNT (BEAKER) (test 0.33 K/ L 0.04-0.54 sfct=843) BASOPHILS ABSOLUTE COUNT (BEAKER) (test qvdn=243) 0.02 K/ L 0.01-0.08 IMMATURE GRANULOCYTES-RELATIVE PERCENT (BEAKER) 1 % 0-1 (test eqji=3284) URINALYSIS W/ [id number] 06:18:00 Test Item Value Reference Range Comments COLOR (BEAKER) (test rjaw=989) Dark Yellow CLARITY (BEAKER) (test oqeh=014) Clear SPECIFIC GRAVITY UA (BEAKER) (test yhos=460) 1.008 1.001-1.035 PH UA (BEAKER) (test tyqa=214) 6.0 5.0-8.0 PROTEIN UA (BEAKER) (test kkhj=671) Negative Negative GLUCOSE UA (BEAKER) (test rcpn=028) Negative Negative KETONES UA (BEAKER) (test ojxd=432) Negative Negative BILIRUBIN UA (BEAKER) (test bfpa=567) Positive Negative BLOOD UA (BEAKER) (test ktpg=684) Moderate Negative NITRITE UA (BEAKER) (test necp=917) Negative Negative LEUKOCYTE ESTERASE UA (BEAKER) (test xwom=655) Negative Negative UROBILINOGEN UA (BEAKER) (test rafj=488) 0.2 mg/dL 0.2-1.0 RBC UA (BEAKER) (test qymc=116) 80 /HPF WBC UA (BEAKER) (test mpdp=307) 10 /HPF HYALINE CASTS (BEAKER) (test aoiu=060) 5 /LPF AMORPHOUS CRYSTALS (BEAKER) (test dndn=8707) Rare SOURCE(BEAKER) (test znib=2858) CBC W/PLT COUNT & AUTO [id number] 00:00:00 Test Item Value Reference Range Comments WHITE BLOOD CELL COUNT (BEAKER) (test qadb=992) 3.7 K/ L 3.5-10.5 RED BLOOD CELL COUNT (BEAKER) (test payt=853) 2.20 M/ L 4.63-6.08 HEMOGLOBIN (BEAKER) (test prpx=466) 7.0 GM/DL 13.7-17.5 HEMATOCRIT (BEAKER) (test gadz=601) 20.2 % 40.1-51.0 MEAN CORPUSCULAR VOLUME (BEAKER) (test menn=107) 91.8 fL 79.0-92.2 MEAN CORPUSCULAR HEMOGLOBIN (BEAKER) (test 31.8 pg 25.7-32.2 ytjw=770) MEAN CORPUSCULAR HEMOGLOBIN CONC (BEAKER) (test 34.7 GM/DL 32.3-36.5 fbzl=584) RED CELL DISTRIBUTION WIDTH (BEAKER) (test 19.3 % 11.6-14.4 crdq=786) PLATELET COUNT (BEAKER) (test wdve=158) 63 K/CU MM 150-450 MEAN PLATELET VOLUME (BEAKER) (test dusl=452) 9.1 fL 9.4-12.4 NUCLEATED RED BLOOD CELLS (BEAKER) (test 0 /100 WBC 0-0 imaw=302) NEUTROPHILS RELATIVE PERCENT (BEAKER) (test 62 % ezgy=189) LYMPHOCYTES RELATIVE PERCENT (BEAKER) (test 11 % rrkd=330) MONOCYTES RELATIVE PERCENT (BEAKER) (test 19 % zcmq=505) EOSINOPHILS RELATIVE PERCENT (BEAKER) (test 7 % thhr=571) BASOPHILS RELATIVE PERCENT (BEAKER) (test 1 % dnog=564) NEUTROPHILS ABSOLUTE COUNT (BEAKER) (test 2.29 K/ L 1.78-5.38 tqqg=676) LYMPHOCYTES ABSOLUTE COUNT (BEAKER) (test 0.39 K/ L 1.32-3.57 nfpl=110) MONOCYTES ABSOLUTE COUNT (BEAKER) (test zzfu=497) 0.71 K/ L 0.30-0.82 EOSINOPHILS ABSOLUTE COUNT (BEAKER) (test 0.27 K/ L 0.04-0.54 smgw=475) BASOPHILS ABSOLUTE COUNT (BEAKER) (test hgza=245) 0.02 K/ L 0.01-0.08 IMMATURE GRANULOCYTES-RELATIVE PERCENT (BEAKER) 1 % 0-1 (test jowu=6003) PROTHROMBIN [id number] 22:52:00 Test Item Value Reference Range Comments PROTIME (BEAKER) (test zqeg=163) 25.6 seconds 11.7-14.7 INR (BEAKER) (test rrbu=619) 2.3 <=5.9 RECOMMENDED COUMADIN/WARFARIN INR THERAPY RANGESSTANDARD DOSE: 2.0 - 3.0 Includes: PROPHYLAXIS forvenous thrombosis, systemic embolization; TREATMENT for venous thrombosis and/or pulmonary embolus.HIGH RISK: Target INR is 2.5-3.5 for patients with mechanical heart valves.[id number] 22:52:00 Test Item Value Reference Range Comments MAGNESIUM (BEAKER) (test mwfs=118) 1.3 mg/dL 1.6-2.6 BASIC METABOLIC [id number] 22:52:00 Test Item Value Reference Range Comments SODIUM (BEAKER) (test 124 meq/L 136-145 jcjg=959) POTASSIUM (BEAKER) (test 4.1 meq/L 3.5-5.1 puda=361) CHLORIDE (BEAKER) (test 99 meq/L 98-107 ndfa=966) CO2 (BEAKER) (test 18 meq/L 22-29 uzsw=347) BLOOD UREA NITROGEN 16 mg/dL 7-21 (BEAKER) (test dcem=397) CREATININE (BEAKER) (test 0.97 mg/dL 0.57-1.25 bhpw=592) GLUCOSE RANDOM (BEAKER) 99 mg/dL 70-105 (test qjzb=507) CALCIUM (BEAKER) (test 8.7 mg/dL 8.4-10.2 aqtr=727) EGFR (BEAKER) (test 81 mL/min/1.73 sq m ESTIMATED GFR IS NOT xqzx=5074) ACCURATE CREATININE CLEARANCE IN PREDICTING GLOMERULAR FILTRATION RATE. ESTIMATED GFR IS NOT APPLICABLE FOR DIALYSIS PATIENTS. Specimen markedly ictericHEPATIC FUNCTION [id number] 22:52:00 Test Item Value Reference Range Comments TOTAL PROTEIN (BEAKER) (test gwym=360) 5.3 gm/dL 6.0-8.3 ALBUMIN (BEAKER) (test szcm=6553) 2.8 g/dL 3.5-5.0 BILIRUBIN TOTAL (BEAKER) (test mekp=860) 12.7 mg/dL 0.2-1.2 BILIRUBIN DIRECT (BEAKER) (test dett=940) 7.6 mg/dL 0.1-0.5 ALKALINE PHOSPHATASE (BEAKER) (test aftz=787) 93 U/L 40-150 AST (SGOT) (BEAKER) (test jnpg=367) 21 U/L 5-34 ALT (SGPT) (BEAKER) (test zscn=121) 9 U/L 6-55 Specimen markedly ictericALPHA FETOPROTEIN (AFP), TUMOR [id number] 16:39: 00 Test Item Value Reference Range Comments ALPHA-FETOPROTEIN (BEAKER) (test hnmb=7524) 2.5 ng/mL <10.0 BASIC METABOLIC [id number] 15:53:00 Test Item Value Reference Range Comments SODIUM (BEAKER) (test 126 meq/L 136-145 vcvw=940) POTASSIUM (BEAKER) (test 5.1 meq/L 3.5-5.1 vfgc=621) CHLORIDE (BEAKER) (test 101 meq/L 98-107 hssj=615) CO2 (BEAKER) (test 19 meq/L 22-29 bvye=767) BLOOD UREA NITROGEN 14 mg/dL 7-21 (BEAKER) (test yjha=457) CREATININE (BEAKER) (test 1.01 mg/dL 0.57-1.25 bdyj=850) GLUCOSE RANDOM (BEAKER) 104 mg/dL 70-105 (test stec=282) CALCIUM (BEAKER) (test 9.0 mg/dL 8.4-10.2 vsfn=014) EGFR (BEAKER) (test 78 mL/min/1.73 sq m ESTIMATED GFR IS NOT wtvp=6024) ACCURATE CREATININE CLEARANCE IN PREDICTING GLOMERULAR FILTRATION RATE. ESTIMATED GFR IS NOT APPLICABLE FOR DIALYSIS PATIENTS. Specimen moderately ictericHEPATIC FUNCTION [id number] 15:53:00 Test Item Value Reference Range Comments TOTAL PROTEIN (BEAKER) (test dutz=473) 6.1 gm/dL 6.0-8.3 ALBUMIN (BEAKER) (test uzic=7487) 2.6 g/dL 3.5-5.0 BILIRUBIN TOTAL (BEAKER) (test rqqd=877) 10.4 mg/dL 0.2-1.2 BILIRUBIN DIRECT (BEAKER) (test yptw=416) 7.5 mg/dL 0.1-0.5 ALKALINE PHOSPHATASE (BEAKER) (test lcwp=364) 124 U/L 40-150 AST (SGOT) (BEAKER) (test ioic=212) 29 U/L 5-34 ALT (SGPT) (BEAKER) (test crzc=503) 12 U/L 6-55 Specimen moderately ictericGAMMA GLUTAMYL TRANSFERASE (GGT)[id number] 15:53:00 Test Item Value Reference Range Comments GAMMA GLUTAMYL TRANSFERASE (BEAKER) (test dckz=790) 17 U/L 9-64 Specimen moderately ictericPROTHROMBIN [id number] 15:40:00 Test Item Value Reference Range Comments PROTIME (BEAKER) (test aoec=916) 22.6 seconds 11.7-14.7 INR (BEAKER) (test oabh=461) 2.0 <=5.9 RECOMMENDED COUMADIN/WARFARIN INR THERAPY RANGESSTANDARD DOSE: 2.0 - 3.0 Includes: PROPHYLAXIS forvenous thrombosis, systemic embolization; TREATMENT for venous thrombosis and/or pulmonary embolus.HIGH RISK: Target INR is 2.5-3.5 for patients with mechanical heart valves.CBC W/PLT COUNT & AUTO [id number] 15:38:00 Test Item Value Reference Range Comments WHITE BLOOD CELL COUNT (BEAKER) (test iaov=780) 7.3 K/ L 3.5-10.5 RED BLOOD CELL COUNT (BEAKER) (test bzvc=427) 2.78 M/ L 4.63-6.08 HEMOGLOBIN (BEAKER) (test rdbq=593) 9.1 GM/DL 13.7-17.5 HEMATOCRIT (BEAKER) (test jnta=897) 27.3 % 40.1-51.0 MEAN CORPUSCULAR VOLUME (BEAKER) (test uesv=163) 98.2 fL 79.0-92.2 MEAN CORPUSCULAR HEMOGLOBIN (BEAKER) (test 32.7 pg 25.7-32.2 hklt=236) MEAN CORPUSCULAR HEMOGLOBIN CONC (BEAKER) (test 33.3 GM/DL 32.3-36.5 brrj=291) RED CELL DISTRIBUTION WIDTH (BEAKER) (test 16.4 % 11.6-14.4 ptez=459) PLATELET COUNT (BEAKER) (test pqqp=517) 71 K/CU MM 150-450 MEAN PLATELET VOLUME (BEAKER) (test wgpl=396) 9.1 fL 9.4-12.4 NUCLEATED RED BLOOD CELLS (BEAKER) (test 0 /100 WBC 0-0 xgzf=558) NEUTROPHILS RELATIVE PERCENT (BEAKER) (test 71 % almb=122) LYMPHOCYTES RELATIVE PERCENT (BEAKER) (test 8 % mnys=261) MONOCYTES RELATIVE PERCENT (BEAKER) (test 15 % tljr=249) EOSINOPHILS RELATIVE PERCENT (BEAKER) (test 5 % hmtx=173) BASOPHILS RELATIVE PERCENT (BEAKER) (test 0 % znqf=428) NEUTROPHILS ABSOLUTE COUNT (BEAKER) (test 5.13 K/ L 1.78-5.38 cfge=071) LYMPHOCYTES ABSOLUTE COUNT (BEAKER) (test 0.59 K/ L 1.32-3.57 sctb=451) MONOCYTES ABSOLUTE COUNT (BEAKER) (test lbmz=346) 1.06 K/ L 0.30-0.82 EOSINOPHILS ABSOLUTE COUNT (BEAKER) (test 0.33 K/ L 0.04-0.54 zrkd=625) BASOPHILS ABSOLUTE COUNT (BEAKER) (test bwrt=119) 0.03 K/ L 0.01-0.08 IMMATURE GRANULOCYTES-RELATIVE PERCENT (BEAKER) 2 % 0-1 (test avlz=8908) FUNGUS CULTURE + [id number] 07:22:00 Test Item Value Reference Range Comments CULTURE (BEAKER) (test No fungus isolated in 28 days wsav=5596) FUNGUS SMEAR (BEAKER) (test No fungi seen woyk=7834) HISTOPLASMA ANTIGEN, [id number] 08:01:00 Test Item Value Reference Range Comments SCAN RESULT (test wwoj=[id number]) TISSUE [id number] 10:58:00 Test Item Value Reference Range Comments LAB AP CPT CODE (BEAKER) (test brpa=9390) 852[address] BLOOD [id number] 16:15:00 Test Item Value Reference Range Comments CULTURE (BEAKER) (test nuwu=8840) No growth in 5 days BLOOD [id number] 16:15:00 Test Item Value Reference Range Comments CULTURE (BEAKER) (test hhhy=0606) No growth in 5 days [id number] 06:54:00 Test Item Value Reference Range Comments PHOSPHORUS (BEAKER) (test hsky=275) 3.3 mg/dL 2.3-4.7 [id number] 06:54:00 Test Item Value Reference Range Comments MAGNESIUM (BEAKER) (test hrlp=707) 1.2 mg/dL 1.6-2.6 BASIC METABOLIC [id number] 06:54:00 Test Item Value Reference Range Comments SODIUM (BEAKER) (test 133 meq/L 136-145 dqto=004) POTASSIUM (BEAKER) (test 3.6 meq/L 3.5-5.1 jplt=444) CHLORIDE (BEAKER) (test 108 meq/L 98-107 ylds=902) CO2 (BEAKER) (test 17 meq/L 22-29 mecm=990) BLOOD UREA NITROGEN 13 mg/dL 7-21 (BEAKER) (test biby=355) CREATININE (BEAKER) (test 1.16 mg/dL 0.57-1.25 evja=645) GLUCOSE RANDOM (BEAKER) 82 mg/dL 70-105 (test lcsu=197) CALCIUM (BEAKER) (test 8.0 mg/dL 8.4-10.2 qwof=009) EGFR (BEAKER) (test 66 mL/min/1.73 sq m ESTIMATED GFR IS NOT durj=5304) ACCURATE CREATININE CLEARANCE IN PREDICTING GLOMERULAR FILTRATION RATE. ESTIMATED GFR IS NOT APPLICABLE FOR DIALYSIS PATIENTS. Specimen moderately ictericHEPATIC FUNCTION [id number] 06:54:00 Test Item Value Reference Range Comments TOTAL PROTEIN (BEAKER) (test cvkv=824) 5.7 gm/dL 6.0-8.3 ALBUMIN (BEAKER) (test jjdc=7920) 3.1 g/dL 3.5-5.0 BILIRUBIN TOTAL (BEAKER) (test geys=727) 5.2 mg/dL 0.2-1.2 BILIRUBIN DIRECT (BEAKER) (test qjzp=204) 2.6 mg/dL 0.1-0.5 ALKALINE PHOSPHATASE (BEAKER) (test iixq=164) 55 U/L 40-150 AST (SGOT) (BEAKER) (test zpil=394) 32 U/L 5-34 ALT (SGPT) (BEAKER) (test hmnx=856) 9 U/L 6-55 Specimen moderately ictericCALCIUM, [id number] 06:30:00 Test Item Value Reference Range Comments CALCIUM IONIZED (BEAKER) (test eiwl=775) 1.00 mmol/L 1.12-1.27 PH, BLOOD (BEAKER) (test uloy=0761) 7.52 CBC W/PLT COUNT & AUTO [id number] 06:17:00 Test Item Value Reference Range Comments WHITE BLOOD CELL COUNT (BEAKER) (test jfuv=332) 4.7 K/ L 4.0-10.0 RED BLOOD CELL COUNT (BEAKER) (test warn=708) 2.05 M/ L 4.20-5.80 HEMOGLOBIN (BEAKER) (test dmpx=939) 7.1 GM/DL 13.0-16.8 HEMATOCRIT (BEAKER) (test nqst=417) 21.1 % 40.0-50.0 MEAN CORPUSCULAR VOLUME (BEAKER) (test muqk=780) 103.0 fL 82.0-98.0 MEAN CORPUSCULAR HEMOGLOBIN (BEAKER) (test 34.8 pg 27.0-33.0 lzvk=607) MEAN CORPUSCULAR HEMOGLOBIN CONC (BEAKER) (test 33.8 GM/DL 32.0-36.0 kiec=101) RED CELL DISTRIBUTION WIDTH (BEAKER) (test 13.9 % 10.3-14.2 brhg=475) PLATELET COUNT (BEAKER) (test dsxv=023) 71 K/CU MM 150-430 MEAN PLATELET VOLUME (BEAKER) (test guxn=265) 6.6 fL 6.5-10.5 NUCLEATED RED BLOOD CELLS (BEAKER) (test 0 /100 WBC 0-0 hlav=514) NEUTROPHILS RELATIVE PERCENT (BEAKER) (test 68 % vggu=635) LYMPHOCYTES RELATIVE PERCENT (BEAKER) (test 16 % ness=962) MONOCYTES RELATIVE PERCENT (BEAKER) (test 12 % gmzt=148) EOSINOPHILS RELATIVE PERCENT (BEAKER) (test 4 % enya=385) BASOPHILS RELATIVE PERCENT (BEAKER) (test 1 % nusm=803) NEUTROPHILS ABSOLUTE COUNT (BEAKER) (test 3.21 K/ L 1.80-8.00 ymzm=743) LYMPHOCYTES ABSOLUTE COUNT (BEAKER) (test 0.75 K/ L 1.48-4.50 msch=434) MONOCYTES ABSOLUTE COUNT (BEAKER) (test lccl=735) 0.57 K/ L 0.00-1.30 EOSINOPHILS ABSOLUTE COUNT (BEAKER) (test 0.19 K/ L 0.00-0.50 fbpv=620) BASOPHILS ABSOLUTE COUNT (BEAKER) (test oxtq=789) 0.03 K/ L 0.00-0.20 0.00PROTHROMBIN [id number] 05:56:00 Test Item Value Reference Range Comments PROTIME (BEAKER) (test ztcs=924) 26.4 seconds 11.7-14.7 INR (BEAKER) (test pkmp=502) 2.4 <=5.9 RECOMMENDED COUMADIN/WARFARIN INR THERAPY RANGESSTANDARD DOSE: 2.0 - 3.0 Includes: PROPHYLAXIS forvenous thrombosis, systemic embolization; TREATMENT for venous thrombosis and/or pulmonary embolus.HIGH RISK: Target INR is 2.5-3.5 for patients with mechanical heart valves.BASIC METABOLIC [id number] 04:44: 00 Test Item Value Reference Range Comments SODIUM (BEAKER) (test 134 meq/L 136-145 prde=458) POTASSIUM (BEAKER) (test 3.6 meq/L 3.5-5.1 avex=858) CHLORIDE (BEAKER) (test 108 meq/L 98-107 ayhc=209) CO2 (BEAKER) (test 19 meq/L 22-29 berb=932) BLOOD UREA NITROGEN 12 mg/dL 7-21 (BEAKER) (test wjko=114) CREATININE (BEAKER) (test 1.32 mg/dL 0.57-1.25 hhpg=507) GLUCOSE RANDOM (BEAKER) 82 mg/dL 70-105 (test gonf=539) CALCIUM (BEAKER) (test 7.9 mg/dL 8.4-10.2 byfg=949) EGFR (BEAKER) (test 57 mL/min/1.73 sq m ESTIMATED GFR IS NOT gxff=9746) ACCURATE CREATININE CLEARANCE IN PREDICTING GLOMERULAR FILTRATION RATE. ESTIMATED GFR IS NOT APPLICABLE FOR DIALYSIS PATIENTS. Specimen moderately ictericHEPATIC FUNCTION [id number] 04:42:00 Test Item Value Reference Range Comments TOTAL PROTEIN (BEAKER) (test drdd=215) 5.8 gm/dL 6.0-8.3 ALBUMIN (BEAKER) (test bsuo=1342) 3.1 g/dL 3.5-5.0 BILIRUBIN TOTAL (BEAKER) (test ojsd=419) 5.1 mg/dL 0.2-1.2 BILIRUBIN DIRECT (BEAKER) (test nkzl=815) 2.7 mg/dL 0.1-0.5 ALKALINE PHOSPHATASE (BEAKER) (test xvfg=791) 51 U/L 40-150 AST (SGOT) (BEAKER) (test uayg=083) 27 U/L 5-34 ALT (SGPT) (BEAKER) (test pqpl=570) 7 U/L 6-55 Specimen moderately ictericCBC W/PLT COUNT & AUTO [id number] 04: 35:00 Test Item Value Reference Range Comments WHITE BLOOD CELL COUNT (BEAKER) (test spna=444) 4.6 K/ L 4.0-10.0 RED BLOOD CELL COUNT (BEAKER) (test vdso=504) 2.06 M/ L 4.20-5.80 HEMOGLOBIN (BEAKER) (test rguo=593) 7.2 GM/DL 13.0-16.8 HEMATOCRIT (BEAKER) (test zlsg=169) 21.5 % 40.0-50.0 MEAN CORPUSCULAR VOLUME (BEAKER) (test uben=970) 104.0 fL 82.0-98.0 MEAN CORPUSCULAR HEMOGLOBIN (BEAKER) (test 35.0 pg 27.0-33.0 agxf=337) MEAN CORPUSCULAR HEMOGLOBIN CONC (BEAKER) (test 33.6 GM/DL 32.0-36.0 ztrf=511) RED CELL DISTRIBUTION WIDTH (BEAKER) (test 13.4 % 10.3-14.2 vkbp=234) PLATELET COUNT (BEAKER) (test xeuh=657) 76 K/CU MM 150-430 MEAN PLATELET VOLUME (BEAKER) (test zyad=556) 6.5 fL 6.5-10.5 NUCLEATED RED BLOOD CELLS (BEAKER) (test 0 /100 WBC 0-0 lnzy=957) NEUTROPHILS RELATIVE PERCENT (BEAKER) (test 64 % ojzi=346) LYMPHOCYTES RELATIVE PERCENT (BEAKER) (test 16 % coql=489) MONOCYTES RELATIVE PERCENT (BEAKER) (test 16 % hrmt=866) EOSINOPHILS RELATIVE PERCENT (BEAKER) (test 4 % alma=340) BASOPHILS RELATIVE PERCENT (BEAKER) (test 1 % abzp=875) NEUTROPHILS ABSOLUTE COUNT (BEAKER) (test 2.89 K/ L 1.80-8.00 giwe=115) LYMPHOCYTES ABSOLUTE COUNT (BEAKER) (test 0.72 K/ L 1.48-4.50 tloh=204) MONOCYTES ABSOLUTE COUNT (BEAKER) (test jaop=270) 0.71 K/ L 0.00-1.30 EOSINOPHILS ABSOLUTE COUNT (BEAKER) (test 0.20 K/ L 0.00-0.50 buoy=463) BASOPHILS ABSOLUTE COUNT (BEAKER) (test drux=931) 0.03 K/ L 0.00-0.20 0.00PROTHROMBIN [id number] 04:33:00 Test Item Value Reference Range Comments PROTIME (BEAKER) (test sfzi=381) 30.2 seconds 11.7-14.7 INR (BEAKER) (test kytb=492) 2.9 <=5.9 RECOMMENDED COUMADIN/WARFARIN INR THERAPY RANGESSTANDARD DOSE: 2.0 - 3.0 Includes: PROPHYLAXIS forvenous thrombosis, systemic embolization; TREATMENT for venous thrombosis and/or pulmonary embolus.HIGH RISK: Target INR is 2.5-3.5 for patients with mechanical heart valves.VANCOMYCIN LEVEL, [id number] 17: 04:00 Test Item Value Reference Range Comments VANCOMYCIN TROUGH (BEAKER) (test owuo=454) 12.2 ug/mL 10.0-20.0 URINE [id number] 14:25:00 Test Item Value Reference Range Comments CULTURE (BEAKER) (test rbtj=3432) No growth TSH/FREE T4 IF [id number] 14:22:00 Test Item Value Reference Range Comments THYROID STIMULATING HORMONE (BEAKER) (test 3.53 uIU/mL 0.35-4.94 nvmp=845) URINE [id number] 11:43:00 Test Item Value Reference Range Comments CULTURE (BEAKER) (test lhfp=0759) No growth CBC W/PLT COUNT & AUTO [id number] 07:55:00 Test Item Value Reference Range Comments WHITE BLOOD CELL COUNT (BEAKER) (test mnve=681) 4.5 K/ L 4.0-10.0 RED BLOOD CELL COUNT (BEAKER) (test xtcq=374) 2.06 M/ L 4.20-5.80 HEMOGLOBIN (BEAKER) (test sygf=284) 7.1 GM/DL 13.0-16.8 HEMATOCRIT (BEAKER) (test effe=147) 21.5 % 40.0-50.0 MEAN CORPUSCULAR VOLUME (BEAKER) (test kswv=165) 104.0 fL 82.0-98.0 MEAN CORPUSCULAR HEMOGLOBIN (BEAKER) (test 34.5 pg 27.0-33.0 xnht=317) MEAN CORPUSCULAR HEMOGLOBIN CONC (BEAKER) (test 33.1 GM/DL 32.0-36.0 feis=843) RED CELL DISTRIBUTION WIDTH (BEAKER) (test 13.4 % 10.3-14.2 qtcc=531) PLATELET COUNT (BEAKER) (test olga=070) 79 K/CU MM 150-430 MEAN PLATELET VOLUME (BEAKER) (test aozl=730) 6.8 fL 6.5-10.5 NUCLEATED RED BLOOD CELLS (BEAKER) (test 0 /100 WBC 0-0 nuew=966) NEUTROPHILS RELATIVE PERCENT (BEAKER) (test 64 % bmvp=062) LYMPHOCYTES RELATIVE PERCENT (BEAKER) (test 16 % ccbk=377) MONOCYTES RELATIVE PERCENT (BEAKER) (test 15 % usip=162) EOSINOPHILS RELATIVE PERCENT (BEAKER) (test 5 % ubzp=792) BASOPHILS RELATIVE PERCENT (BEAKER) (test 0 % sysi=554) NEUTROPHILS ABSOLUTE COUNT (BEAKER) (test 2.88 K/ L 1.80-8.00 tskw=836) LYMPHOCYTES ABSOLUTE COUNT (BEAKER) (test 0.73 K/ L 1.48-4.50 iulk=130) MONOCYTES ABSOLUTE COUNT (BEAKER) (test bmoa=992) 0.68 K/ L 0.00-1.30 EOSINOPHILS ABSOLUTE COUNT (BEAKER) (test 0.23 K/ L 0.00-0.50 ykez=166) BASOPHILS ABSOLUTE COUNT (BEAKER) (test puhi=075) 0.02 K/ L 0.00-0.20 0.00BASI METABOLIC [id number] 05:58:00 Test Item Value Reference Range Comments SODIUM (BEAKER) (test 137 meq/L 136-145 cirt=242) POTASSIUM (BEAKER) (test 3.7 meq/L 3.5-5.1 sirl=058) CHLORIDE (BEAKER) (test 110 meq/L 98-107 yrzy=907) CO2 (BEAKER) (test 19 meq/L 22-29 uxdq=298) BLOOD UREA NITROGEN 12 mg/dL 7-21 (BEAKER) (test jyry=312) CREATININE (BEAKER) (test 1.29 mg/dL 0.57-1.25 bkxj=834) GLUCOSE RANDOM (BEAKER) 80 mg/dL 70-105 (test jgwh=987) CALCIUM (BEAKER) (test 8.1 mg/dL 8.4-10.2 zmmb=657) EGFR (BEAKER) (test 59 mL/min/1.73 sq m ESTIMATED GFR IS NOT gipf=5554) ACCURATE CREATININE CLEARANCE IN PREDICTING GLOMERULAR FILTRATION RATE. ESTIMATED GFR IS NOT APPLICABLE FOR DIALYSIS PATIENTS. Specimen moderately ictericHEPATIC FUNCTION [id number] 05:58:00 Test Item Value Reference Range Comments TOTAL PROTEIN (BEAKER) (test ydkl=095) 5.9 gm/dL 6.0-8.3 ALBUMIN (BEAKER) (test pqkt=2741) 3.4 g/dL 3.5-5.0 BILIRUBIN TOTAL (BEAKER) (test sulw=576) 5.6 mg/dL 0.2-1.2 BILIRUBIN DIRECT (BEAKER) (test gzif=431) 2.6 mg/dL 0.1-0.5 ALKALINE PHOSPHATASE (BEAKER) (test gver=708) 50 U/L 40-150 AST (SGOT) (BEAKER) (test xgyz=079) 30 U/L 5-34 ALT (SGPT) (BEAKER) (test mntj=975) 9 U/L 6-55 Specimen moderately ictericPROTHROMBIN [id number] 05:31:00 Test Item Value Reference Range Comments PROTIME (BEAKER) (test bbal=767) 29.0 seconds 11.7-14.7 INR (BEAKER) (test expa=174) 2.7 <=5.9 RECOMMENDED COUMADIN/WARFARIN INR THERAPY RANGESSTANDARD DOSE: 2.0 - 3.0 Includes: PROPHYLAXIS forvenous thrombosis, systemic embolization; TREATMENT for venous thrombosis and/or pulmonary embolus.HIGH RISK: Target INR is 2.5-3.5 for patients with mechanical heart valves.ANAEROBIC [id number] 05:15:00 Test Item Value Reference Range Comments CULTURE (BEAKER) (test xqzi=1249) No anaerobes isolated BLOOD [id number] 00:00:00 Test Item Value Reference Range Comments CULTURE (BEAKER) (test kyzs=0643) No growth in 5 days BLOOD [id number] 00:00:00 Test Item Value Reference Range Comments CULTURE (BEAKER) (test jrwt=3273) No growth in 5 days URINALYSIS W/ REFLEX URINE [id number] 08:28:00 Test Item Value Reference Range Comments COLOR (BEAKER) (test jfcf=173) Yellow CLARITY (BEAKER) (test pobk=703) Clear SPECIFIC GRAVITY UA (BEAKER) (test fqbt=447) 1.006 1.001-1.035 PH UA (BEAKER) (test ztih=793) 6.5 5.0-8.0 PROTEIN UA (BEAKER) (test qsbq=900) Negative Negative GLUCOSE UA (BEAKER) (test tecu=780) Negative Negative KETONES UA (BEAKER) (test phfb=823) Negative Negative BILIRUBIN UA (BEAKER) (test ojwl=099) Negative Negative BLOOD UA (BEAKER) (test jrde=742) Negative Negative NITRITE UA (BEAKER) (test osun=057) Negative Negative LEUKOCYTE ESTERASE UA (BEAKER) (test aarc=590) Small Negative UROBILINOGEN UA (BEAKER) (test rnly=402) 0.2 mg/dL 0.2-1.0 RBC UA (BEAKER) (test edri=703) 1 /HPF WBC UA (BEAKER) (test xzwc=438) 6 /HPF BACTERIA (BEAKER) (test csye=259) Rare SOURCE(BEAKER) (test uzdy=9725) CBC W/PLT COUNT & AUTO [id number] 07:21:00 Test Item Value Reference Range Comments WHITE BLOOD CELL COUNT (BEAKER) (test cqse=149) 5.9 K/ L 4.0-10.0 RED BLOOD CELL COUNT (BEAKER) (test oxwr=426) 2.12 M/ L 4.20-5.80 HEMOGLOBIN (BEAKER) (test idso=469) 7.3 GM/DL 13.0-16.8 HEMATOCRIT (BEAKER) (test oasb=537) 22.2 % 40.0-50.0 MEAN CORPUSCULAR VOLUME (BEAKER) (test irsy=278) 105.0 fL 82.0-98.0 MEAN CORPUSCULAR HEMOGLOBIN (BEAKER) (test 34.2 pg 27.0-33.0 yper=436) MEAN CORPUSCULAR HEMOGLOBIN CONC (BEAKER) (test 32.7 GM/DL 32.0-36.0 xdoe=199) RED CELL DISTRIBUTION WIDTH (BEAKER) (test 13.1 % 10.3-14.2 fnqt=531) PLATELET COUNT (BEAKER) (test heut=656) 80 K/CU MM 150-430 MEAN PLATELET VOLUME (BEAKER) (test mpcx=859) 6.5 fL 6.5-10.5 NUCLEATED RED BLOOD CELLS (BEAKER) (test 0 /100 WBC 0-0 alqy=727) NEUTROPHILS RELATIVE PERCENT (BEAKER) (test 67 % iemh=623) LYMPHOCYTES RELATIVE PERCENT (BEAKER) (test 14 % bqen=097) MONOCYTES RELATIVE PERCENT (BEAKER) (test 14 % phea=859) EOSINOPHILS RELATIVE PERCENT (BEAKER) (test 4 % fpdq=589) BASOPHILS RELATIVE PERCENT (BEAKER) (test 0 % lwpn=398) NEUTROPHILS ABSOLUTE COUNT (BEAKER) (test 3.97 K/ L 1.80-8.00 wkef=569) LYMPHOCYTES ABSOLUTE COUNT (BEAKER) (test 0.85 K/ L 1.48-4.50 zfzh=771) MONOCYTES ABSOLUTE COUNT (BEAKER) (test ejjk=538) 0.81 K/ L 0.00-1.30 EOSINOPHILS ABSOLUTE COUNT (BEAKER) (test 0.25 K/ L 0.00-0.50 feho=697) BASOPHILS ABSOLUTE COUNT (BEAKER) (test kjuu=782) 0.03 K/ L 0.00-0.20 [id number] 06:35:00 Test Item Value Reference Range Comments PHOSPHORUS (BEAKER) (test vqlh=138) 3.5 mg/dL 2.3-4.7 [id number] 06:35:00 Test Item Value Reference Range Comments MAGNESIUM (BEAKER) (test tcru=825) 1.7 mg/dL 1.6-2.6 BASIC METABOLIC [id number] 06:35:00 Test Item Value Reference Range Comments SODIUM (BEAKER) (test 137 meq/L 136-145 ppzd=184) POTASSIUM (BEAKER) (test 4.0 meq/L 3.5-5.1 wuaf=882) CHLORIDE (BEAKER) (test 109 meq/L 98-107 insi=834) CO2 (BEAKER) (test 20 meq/L 22-29 tumd=667) BLOOD UREA NITROGEN 13 mg/dL 7-21 (BEAKER) (test qaiv=783) CREATININE (BEAKER) (test 1.56 mg/dL 0.57-1.25 gjpi=387) GLUCOSE RANDOM (BEAKER) 85 mg/dL 70-105 (test rlxb=347) CALCIUM (BEAKER) (test 8.4 mg/dL 8.4-10.2 tlmn=957) EGFR (BEAKER) (test 47 mL/min/1.73 sq m ESTIMATED GFR IS NOT gibx=1484) ACCURATE CREATININE CLEARANCE IN PREDICTING GLOMERULAR FILTRATION RATE. ESTIMATED GFR IS NOT APPLICABLE FOR DIALYSIS PATIENTS. Specimen moderately ictericHEPATIC FUNCTION [id number] 06:35:00 Test Item Value Reference Range Comments TOTAL PROTEIN (BEAKER) (test kkpb=124) 6.5 gm/dL 6.0-8.3 ALBUMIN (BEAKER) (test chhf=9975) 3.8 g/dL 3.5-5.0 BILIRUBIN TOTAL (BEAKER) (test ksgz=088) 6.1 mg/dL 0.2-1.2 BILIRUBIN DIRECT (BEAKER) (test whmc=765) 2.9 mg/dL 0.1-0.5 ALKALINE PHOSPHATASE (BEAKER) (test vkic=386) 54 U/L 40-150 AST (SGOT) (BEAKER) (test elpg=592) 28 U/L 5-34 ALT (SGPT) (BEAKER) (test eouk=947) 7 U/L 6-55 Specimen moderately ictericPROTHROMBIN TIME/[id number] 06:06:00 Test Item Value Reference Range Comments PROTIME (BEAKER) (test odvq=307) 26.1 seconds 11.7-14.7 INR (BEAKER) (test xxpj=648) 2.4 <=5.9 RECOMMENDED COUMADIN/WARFARIN INR THERAPY RANGESSTANDARD DOSE: 2.0 - 3.0 Includes: PROPHYLAXIS forvenous thrombosis, systemic embolization; TREATMENT for venous thrombosis and/or pulmonary embolus.HIGH RISK: Target INR is 2.5-3.5 for patients with mechanical heart valves.CALCIUM, [id number] 06:06:00 Test Item Value Reference Range Comments CALCIUM IONIZED (BEAKER) (test mlvy=612) 1.06 mmol/L 1.12-1.27 PH, BLOOD (BEAKER) (test rqcz=4409) 7.46 SURGICALLY OBTAINED CULTURE + GRAM [id number] 23:51:00 Test Item Value Reference Range Comments CULTURE (BEAKER) (test blvd=0369) No growth GRAM STAIN RESULT (BEAKER) (test 1+ WBCs qnew=8254) GRAM STAIN RESULT (BEAKER) (test No organisms seen ziww=73928) BODY FLUID CULTURE + GRAM [id number] 23:42:00 Test Item Value Reference Range Comments CULTURE (BEAKER) (test ewbs=4923) No growth GRAM STAIN RESULT (BEAKER) (test 1+ WBCs wpke=9855) GRAM STAIN RESULT (BEAKER) (test No organisms seen iric=75519) BODY FLUID CELL COUNT WITH [id number] 19:59:00 Test Item Value Reference Range Comments APPEARANCE FLUID (BEAKER) (test voeg=695) Hazy Clear COLOR FLUID (BEAKER) (test zscm=835) Yellow Colorless, Straw RBC FLUID (BEAKER) (test eemo=415) 2435 /cu mm <=1 ADJUSTED WBC FLUID (BEAKER) (test oixf=9630) 441 /cu mm <=5 LINING CELLS (BEAKER) (test yyjj=0981) 9 /cu mm <=1 NEUTROPHILS FLUID (BEAKER) (test innq=9354) 16 % LYMPHS FLUID (BEAKER) (test zpbt=967) 10 % MONO/MACROPHAGE FLUID (BEAKER) (test bymw=271) 74 % EOSINOPHILS FLUID (BEAKER) (test hnsp=264) 0 % BASO FLUID (BEAKER) (test piqa=649) 0 % CONTAINER BODY FLUID (BEAKER) (test kpvk=2381) EDTA Tube [id number] 11:01:00 Test Item Value Reference Range Comments PROCALCITONIN (BEAKER) (test pkjt=0639) 0.25 ng/mL <0.05 SEPSIS RISK (ng/mL)Low: 0.05-0.50Intermediate: 0.51-2.00High: & gt;=2.01CBC W/PLT COUNT & AUTO [id number] 08:40:00 Test Item Value Reference Range Comments WHITE BLOOD CELL COUNT (BEAKER) (test ejyf=374) 6.3 K/ L 4.0-10.0 RED BLOOD CELL COUNT (BEAKER) (test zuty=071) 2.07 M/ L 4.20-5.80 HEMOGLOBIN (BEAKER) (test ccie=261) 7.1 GM/DL 13.0-16.8 HEMATOCRIT (BEAKER) (test nlqw=444) 21.9 % 40.0-50.0 MEAN CORPUSCULAR VOLUME (BEAKER) (test bttr=039) 106.0 fL 82.0-98.0 MEAN CORPUSCULAR HEMOGLOBIN (BEAKER) (test 34.1 pg 27.0-33.0 lhox=245) MEAN CORPUSCULAR HEMOGLOBIN CONC (BEAKER) (test 32.2 GM/DL 32.0-36.0 pxwf=583) RED CELL DISTRIBUTION WIDTH (BEAKER) (test 13.1 % 10.3-14.2 ahzo=133) PLATELET COUNT (BEAKER) (test uofh=459) 78 K/CU MM 150-430 MEAN PLATELET VOLUME (BEAKER) (test oflf=935) 6.6 fL 6.5-10.5 NUCLEATED RED BLOOD CELLS (BEAKER) (test 0 /100 WBC 0-0 ytfr=812) NEUTROPHILS RELATIVE PERCENT (BEAKER) (test 73 % hhid=767) LYMPHOCYTES RELATIVE PERCENT (BEAKER) (test 10 % eqhd=151) MONOCYTES RELATIVE PERCENT (BEAKER) (test 13 % fakj=537) EOSINOPHILS RELATIVE PERCENT (BEAKER) (test 4 % ksuy=552) BASOPHILS RELATIVE PERCENT (BEAKER) (test 0 % dwpu=322) NEUTROPHILS ABSOLUTE COUNT (BEAKER) (test 4.60 K/ L 1.80-8.00 wwsd=510) LYMPHOCYTES ABSOLUTE COUNT (BEAKER) (test 0.64 K/ L 1.48-4.50 ytxq=620) MONOCYTES ABSOLUTE COUNT (BEAKER) (test jeom=773) 0.81 K/ L 0.00-1.30 EOSINOPHILS ABSOLUTE COUNT (BEAKER) (test 0.23 K/ L 0.00-0.50 zjrw=057) BASOPHILS ABSOLUTE COUNT (BEAKER) (test spkt=466) 0.01 K/ L 0.00-0.20 [id number] 06:50:00 Test Item Value Reference Range Comments PHOSPHORUS (BEAKER) (test nmiy=808) 3.0 mg/dL 2.3-4.7 [id number] 06:50:00 Test Item Value Reference Range Comments MAGNESIUM (BEAKER) (test qznw=703) 1.9 mg/dL 1.6-2.6 BASIC METABOLIC [id number] 06:50:00 Test Item Value Reference Range Comments SODIUM (BEAKER) (test 135 meq/L 136-145 ozjz=835) POTASSIUM (BEAKER) (test 4.2 meq/L 3.5-5.1 vbsr=444) CHLORIDE (BEAKER) (test 106 meq/L 98-107 bcif=518) CO2 (BEAKER) (test 21 meq/L 22-29 zwmr=421) BLOOD UREA NITROGEN 19 mg/dL 7-21 (BEAKER) (test ehzg=014) CREATININE (BEAKER) (test 1.62 mg/dL 0.57-1.25 qtyl=755) GLUCOSE RANDOM (BEAKER) 98 mg/dL 70-105 (test hpki=637) CALCIUM (BEAKER) (test 8.6 mg/dL 8.4-10.2 ysvo=417) EGFR (BEAKER) (test 45 mL/min/1.73 sq m ESTIMATED GFR IS NOT bewm=8535) ACCURATE CREATININE CLEARANCE IN PREDICTING GLOMERULAR FILTRATION RATE. ESTIMATED GFR IS NOT APPLICABLE FOR DIALYSIS PATIENTS. Specimen moderately ictericHEPATIC FUNCTION [id number] 06:50:00 Test Item Value Reference Range Comments TOTAL PROTEIN (BEAKER) (test nndo=802) 6.3 gm/dL 6.0-8.3 ALBUMIN (BEAKER) (test ynru=3417) 3.7 g/dL 3.5-5.0 BILIRUBIN TOTAL (BEAKER) (test dlwl=069) 6.2 mg/dL 0.2-1.2 BILIRUBIN DIRECT (BEAKER) (test kxzt=114) 2.8 mg/dL 0.1-0.5 ALKALINE PHOSPHATASE (BEAKER) (test muxo=871) 54 U/L 40-150 AST (SGOT) (BEAKER) (test xtap=360) 29 U/L 5-34 ALT (SGPT) (BEAKER) (test owjx=492) 8 U/L 6-55 Specimen moderately ictericCALCIUM, [id number] 06:48:00 Test Item Value Reference Range Comments CALCIUM IONIZED (BEAKER) (test jqae=820) 1.12 mmol/L 1.12-1.27 PH, BLOOD (BEAKER) (test xybz=3749) 7.33 PROTHROMBIN [id number] 06:24:00 Test Item Value Reference Range Comments PROTIME (BEAKER) (test glkq=805) 25.4 seconds 11.7-14.7 INR (BEAKER) (test nfxj=910) 2.3 <=5.9 RECOMMENDED COUMADIN/WARFARIN INR THERAPY RANGESSTANDARD DOSE: 2.0 - 3.0 Includes: PROPHYLAXIS forvenous thrombosis, systemic embolization; TREATMENT for venous thrombosis and/or pulmonary embolus.HIGH RISK: Target INR is 2.5-3.5 for patients with mechanical heart valves.[id number] 11:17:00 Test Item Value Reference Range Comments FIBRINOGEN LEVEL (BEAKER) (test zvwm=669) 115 mg/dl 225-434 CALCIUM, [id number] 06:04:00 Test Item Value Reference Range Comments CALCIUM IONIZED (BEAKER) (test fyms=848) 1.08 mmol/L 1.12-1.27 PH, BLOOD (BEAKER) (test xzyp=3080) 7.41 CBC W/PLT COUNT & AUTO [id number] 05:28:00 Test Item Value Reference Range Comments WHITE BLOOD CELL COUNT (BEAKER) (test dghz=347) 5.6 K/ L 4.0-10.0 RED BLOOD CELL COUNT (BEAKER) (test kkpy=062) 2.00 M/ L 4.20-5.80 HEMOGLOBIN (BEAKER) (test xbll=786) 7.2 GM/DL 13.0-16.8 HEMATOCRIT (BEAKER) (test wywz=888) 21.2 % 40.0-50.0 MEAN CORPUSCULAR VOLUME (BEAKER) (test isms=100) 106.0 fL 82.0-98.0 MEAN CORPUSCULAR HEMOGLOBIN (BEAKER) (test 36.0 pg 27.0-33.0 wngl=947) MEAN CORPUSCULAR HEMOGLOBIN CONC (BEAKER) (test 34.0 GM/DL 32.0-36.0 mczl=548) RED CELL DISTRIBUTION WIDTH (BEAKER) (test 13.9 % 10.3-14.2 fqwd=635) PLATELET COUNT (BEAKER) (test peoj=581) 74 K/CU MM 150-430 MEAN PLATELET VOLUME (BEAKER) (test yzcq=246) 6.6 fL 6.5-10.5 NUCLEATED RED BLOOD CELLS (BEAKER) (test 0 /100 WBC 0-0 ldqo=095) NEUTROPHILS RELATIVE PERCENT (BEAKER) (test 66 % wxfd=426) LYMPHOCYTES RELATIVE PERCENT (BEAKER) (test 14 % uhib=621) MONOCYTES RELATIVE PERCENT (BEAKER) (test 13 % fjpc=796) EOSINOPHILS RELATIVE PERCENT (BEAKER) (test 7 % jaui=098) BASOPHILS RELATIVE PERCENT (BEAKER) (test 0 % pjkd=954) NEUTROPHILS ABSOLUTE COUNT (BEAKER) (test 3.67 K/ L 1.80-8.00 witu=760) LYMPHOCYTES ABSOLUTE COUNT (BEAKER) (test 0.80 K/ L 1.48-4.50 vvbq=383) MONOCYTES ABSOLUTE COUNT (BEAKER) (test ojnu=003) 0.69 K/ L 0.00-1.30 EOSINOPHILS ABSOLUTE COUNT (BEAKER) (test 0.38 K/ L 0.00-0.50 qzgq=588) BASOPHILS ABSOLUTE COUNT (BEAKER) (test gieq=681) 0.02 K/ L 0.00-0.20 0.00PROTHROMBIN [id number] 05:11:00 Test Item Value Reference Range Comments PROTIME (BEAKER) (test lxup=517) 25.9 seconds 11.7-14.7 INR (BEAKER) (test qfty=598) 2.4 <=5.9 RECOMMENDED COUMADIN/WARFARIN INR THERAPY RANGESSTANDARD DOSE: 2.0 - 3.0 Includes: PROPHYLAXIS forvenous thrombosis, systemic embolization; TREATMENT for venous thrombosis and/or pulmonary embolus.HIGH RISK: Target INR is 2.5-3.5 for patients with mechanical heart valves.[id number] 05:03:00 Test Item Value Reference Range Comments PHOSPHORUS (BEAKER) (test lpvk=211) 3.5 mg/dL 2.3-4.7 [id number] 05:03:00 Test Item Value Reference Range Comments MAGNESIUM (BEAKER) (test qbab=696) 1.7 mg/dL 1.6-2.6 BASIC METABOLIC [id number] 05:03:00 Test Item Value Reference Range Comments SODIUM (BEAKER) (test 135 meq/L 136-145 vvjm=659) POTASSIUM (BEAKER) (test 4.0 meq/L 3.5-5.1 tsha=936) CHLORIDE (BEAKER) (test 107 meq/L 98-107 djem=559) CO2 (BEAKER) (test 20 meq/L 22-29 wxsm=326) BLOOD UREA NITROGEN 22 mg/dL 7-21 (BEAKER) (test socp=443) CREATININE (BEAKER) (test 1.77 mg/dL 0.57-1.25 mvpo=254) GLUCOSE RANDOM (BEAKER) 83 mg/dL 70-105 (test pvar=559) CALCIUM (BEAKER) (test 8.3 mg/dL 8.4-10.2 pkvf=682) EGFR (BEAKER) (test 41 mL/min/1.73 sq m ESTIMATED GFR IS NOT crvd=0492) ACCURATE CREATININE CLEARANCE IN PREDICTING GLOMERULAR FILTRATION RATE. ESTIMATED GFR IS NOT APPLICABLE FOR DIALYSIS PATIENTS. Specimen moderately ictericHEPATIC FUNCTION [id number] 05:03:00 Test Item Value Reference Range Comments TOTAL PROTEIN (BEAKER) (test duxh=062) 6.2 gm/dL 6.0-8.3 ALBUMIN (BEAKER) (test grvy=7409) 3.7 g/dL 3.5-5.0 BILIRUBIN TOTAL (BEAKER) (test szky=691) 6.0 mg/dL 0.2-1.2 BILIRUBIN DIRECT (BEAKER) (test xmam=611) 2.6 mg/dL 0.1-0.5 ALKALINE PHOSPHATASE (BEAKER) (test geot=332) 48 U/L 40-150 AST (SGOT) (BEAKER) (test mwzi=914) 26 U/L 5-34 ALT (SGPT) (BEAKER) (test xvyg=171) 8 U/L 6-55 Specimen moderately ictericURINE [id number] 14:42:00 Test Item Value Reference Range Comments CULTURE (BEAKER) (test vpvn=3360) No growth ANTI-NUCLEAR ANTIBODY (CHERYL)2017-02-12 13:32:00 Test Item Value Reference Range Comments ANTI-NUCLEAR ANTIBODY (CHERYL) (BEAKER) (test Negative Negative zwby=086) PLATELET [id number] 06:30:00 Test Item Value Reference Range Comments PLATELET COUNT (BEAKER) (test hhko=737) 104 K/CU MM 150-430 [id number] 06:22:00 Test Item Value Reference Range Comments FIBRINOGEN LEVEL (BEAKER) (test bjkn=079) 106 mg/dl 225-434 [id number] 06:16:00 Test Item Value Reference Range Comments PARTIAL THROMBOPLASTIN TIME (BEAKER) (test 48.1 seconds 22.5-36.0 rgvz=611) PROTHROMBIN TIME/[id number] 06:15:00 Test Item Value Reference Range Comments PROTIME (BEAKER) (test zsma=151) 23.5 seconds 11.7-14.7 INR (BEAKER) (test sjgv=029) 2.1 <=5.9 RECOMMENDED COUMADIN/WARFARIN INR THERAPY RANGESSTANDARD DOSE: 2.0 - 3.0 Includes: PROPHYLAXIS forvenous thrombosis, systemic embolization; TREATMENT for venous thrombosis and/or pulmonary embolus.HIGH RISK: Target INR is 2.5-3.5 for patients with mechanical heart valves.[id number] 06:12:00 Test Item Value Reference Range Comments MAGNESIUM (BEAKER) (test 2.0 mg/dL 1.6-2.6 Specimen slightly hemolyzed lovv=714) [id number] 06:12:00 Test Item Value Reference Range Comments PHOSPHORUS (BEAKER) (test 5.0 mg/dL 2.3-4.7 Specimen slightly hemolyzed gwhl=383) BASIC METABOLIC [id number] 06:12:00 Test Item Value Reference Range Comments SODIUM (BEAKER) (test 135 meq/L 136-145 uoes=330) POTASSIUM (BEAKER) (test 4.7 meq/L 3.5-5.1 Specimen slightly lhwc=595) hemolyzed CHLORIDE (BEAKER) (test 107 meq/L 98-107 lryf=445) CO2 (BEAKER) (test 20 meq/L 22-29 jbeh=777) BLOOD UREA NITROGEN 18 mg/dL 7-21 (BEAKER) (test bnec=934) CREATININE (BEAKER) (test 1.74 mg/dL 0.57-1.25 Specimen slightly koks=747) hemolyzed GLUCOSE RANDOM (BEAKER) 76 mg/dL 70-105 (test ucdn=571) CALCIUM (BEAKER) (test 8.1 mg/dL 8.4-10.2 svge=403) EGFR (BEAKER) (test 42 mL/min/1.73 sq m ESTIMATED GFR IS NOT jomf=2603) ACCURATE CREATININE CLEARANCE IN PREDICTING GLOMERULAR FILTRATION RATE. ESTIMATED GFR IS NOT APPLICABLE FOR DIALYSIS PATIENTS. Specimen moderately ictericHEPATIC FUNCTION [id number] 06:12:00 Test Item Value Reference Range Comments TOTAL PROTEIN (BEAKER) (test 6.6 gm/dL 6.0-8.3 Specimen slightly hemolyzed ieee=189) ALBUMIN (BEAKER) (test 3.7 g/dL 3.5-5.0 Specimen slightly hemolyzed ikkf=0044) BILIRUBIN TOTAL (BEAKER) (test 5.7 mg/dL 0.2-1.2 Specimen slightly hemolyzed lrlt=366) BILIRUBIN DIRECT (BEAKER) (test 2.7 mg/dL 0.1-0.5 Specimen slightly hemolyzed emrj=664) ALKALINE PHOSPHATASE (BEAKER) 56 U/L 40-150 (test yqfm=190) AST (SGOT) (BEAKER) (test 29 U/L 5-34 Specimen slightly hemolyzed uixn=128) ALT (SGPT) (BEAKER) (test 7 U/L 6-55 Specimen slightly hemolyzed vpou=589) Specimen moderately ictericLACTIC ACID, VENOUS, WHOLE [id number] 06:04:00 Test Item Value Reference Range Comments LACTATE BLOOD VENOUS (2) (BEAKER) (test 1.0 mmol/L 0.5-2.2 bsbo=0607) Effective 02/28/2016: Units/Reference Range ChangeNew: 0.5-2.2 mmol/L Previous: 5 -20 mg/dLSpecimen moderately ictericCALCIUM, [id number] 05:56:00 Test Item Value Reference Range Comments CALCIUM IONIZED (BEAKER) (test epim=363) 1.00 mmol/L 1.12-1.27 PH, BLOOD (BEAKER) (test ydyz=2277) 7.34 [id number] 21:34:00 Test Item Value Reference Range Comments FIBRINOGEN LEVEL (BEAKER) (test qojs=726) 105 mg/dl 225-434 PLATELET [id number] 20:52:00 Test Item Value Reference Range Comments PLATELET COUNT (BEAKER) (test qdrv=682) 77 K/CU MM 150-430 [id number] 20:51:00 Test Item Value Reference Range Comments PROTIME (BEAKER) (test adro=786) 21.1 seconds 11.7-14.7 INR (BEAKER) (test rhan=723) 1.8 <=5.9 PARTIAL THROMBOPLASTIN TIME (BEAKER) (test 47.3 seconds 22.5-36.0 xcyj=478) RECOMMENDED COUMADIN/WARFARIN INR THERAPY RANGESSTANDARD DOSE: 2.0 - 3.0 Includes: PROPHYLAXIS forvenous thrombosis, systemic embolization; TREATMENT for venous thrombosis and/or pulmonary embolus.HIGH RISK: Target INR is 2.5-3.5 for patients with mechanical heart valves.[id number] 20:51:00 Test Item Value Reference Range Comments PARTIAL THROMBOPLASTIN TIME (BEAKER) (test 47.3 seconds 22.5-36.0 uysp=311) PROTHROMBIN TIME/[id number] 20:50:00 Test Item Value Reference Range Comments PROTIME (BEAKER) (test dlbu=435) 21.1 seconds 11.7-14.7 INR (BEAKER) (test okyo=409) 1.8 <=5.9 RECOMMENDED COUMADIN/WARFARIN INR THERAPY RANGESSTANDARD DOSE: 2.0 - 3.0 Includes: PROPHYLAXIS forvenous thrombosis, systemic embolization; TREATMENT for venous thrombosis and/or pulmonary embolus.HIGH RISK: Target INR is 2.5-3.5 for patients with mechanical heart valves.[id number] 19:30:00 Test Item Value Reference Range Comments PARTIAL THROMBOPLASTIN TIME (BEAKER) (test 45.1 seconds 22.5-36.0 uoyn=568) PROTHROMBIN TIME/[id number] 19:29:00 Test Item Value Reference Range Comments PROTIME (BEAKER) (test wkvg=535) 28.2 seconds 11.7-14.7 INR (BEAKER) (test jbrh=083) 2.6 <=5.9 RECOMMENDED COUMADIN/WARFARIN INR THERAPY RANGESSTANDARD DOSE: 2.0 - 3.0 Includes: PROPHYLAXIS forvenous thrombosis, systemic embolization; TREATMENT for venous thrombosis and/or pulmonary embolus.HIGH RISK: Target INR is 2.5-3.5 for patients with mechanical heart valves.BODY FLUID CELL COUNT WITH [id number] 18:53:00 Test Item Value Reference Range Comments APPEARANCE FLUID (BEAKER) (test nvih=426) Hazy Clear COLOR FLUID (BEAKER) (test bztb=013) Yellow Colorless, Straw RBC FLUID (BEAKER) (test mwah=954) 900 /cu mm <=1 ADJUSTED WBC FLUID (BEAKER) (test czja=7662) 306 /cu mm <=5 LINING CELLS (BEAKER) (test fupv=6423) 64 /cu mm <=1 NEUTROPHILS FLUID (BEAKER) (test vyfe=1067) 4 % LYMPHS FLUID (BEAKER) (test zvhb=674) 18 % MONO/MACROPHAGE FLUID (BEAKER) (test chlh=693) 78 % EOSINOPHILS FLUID (BEAKER) (test hntz=674) 0 % BASO FLUID (BEAKER) (test xwrk=423) 0 % CONTAINER BODY FLUID (BEAKER) (test nxec=1622) EDTA Tube [id number] 16:56:00 Test Item Value Reference Range Comments AMYLASE (BEAKER) (test uclx=737) 37 U/L 25-125 Specimen moderately ictericCOMPREHENSIVE METABOLIC [id number] 16:56:00 Test Item Value Reference Range Comments TOTAL PROTEIN (BEAKER) 6.1 gm/dL 6.0-8.3 (test prbb=125) ALBUMIN (BEAKER) (test 3.2 g/dL 3.5-5.0 saqy=9139) ALKALINE PHOSPHATASE 67 U/L 40-150 (BEAKER) (test snvc=248) BILIRUBIN TOTAL (BEAKER) 5.7 mg/dL 0.2-1.2 (test pipu=214) SODIUM (BEAKER) (test 134 meq/L 136-145 kwnt=876) POTASSIUM (BEAKER) (test 3.8 meq/L 3.5-5.1 zyvr=149) CHLORIDE (BEAKER) (test 106 meq/L 98-107 lphq=043) CO2 (BEAKER) (test 19 meq/L 22-29 raaa=960) BLOOD UREA NITROGEN 18 mg/dL 7-21 (BEAKER) (test kfqu=499) CREATININE (BEAKER) (test 1.52 mg/dL 0.57-1.25 flxn=963) GLUCOSE RANDOM (BEAKER) 112 mg/dL 70-105 (test rsyj=909) CALCIUM (BEAKER) (test 8.3 mg/dL 8.4-10.2 ojly=964) AST (SGOT) (BEAKER) (test 28 U/L 5-34 sewr=512) ALT (SGPT) (BEAKER) (test 10 U/L 6-55 ngoc=591) EGFR (BEAKER) (test 49 mL/min/1.73 sq m ESTIMATED GFR IS NOT xolp=4859) ACCURATE CREATININE CLEARANCE IN PREDICTING GLOMERULAR FILTRATION RATE. ESTIMATED GFR IS NOT APPLICABLE FOR DIALYSIS PATIENTS. Specimen moderately [id number] 16:56:00 Test Item Value Reference Range Comments LIPASE (BEAKER) (test gvnl=651) 52 U/L 8-78 Specimen moderately ictericCBC W/PLT COUNT & AUTO [id number] 16: 27:00 Test Item Value Reference Range Comments WHITE BLOOD CELL COUNT (BEAKER) (test hmii=314) 3.7 K/ L 4.0-10.0 RED BLOOD CELL COUNT (BEAKER) (test tvrc=001) 2.16 M/ L 4.20-5.80 HEMOGLOBIN (BEAKER) (test zysm=713) 7.8 GM/DL 13.0-16.8 HEMATOCRIT (BEAKER) (test owxk=525) 23.1 % 40.0-50.0 MEAN CORPUSCULAR VOLUME (BEAKER) (test cuwm=077) 107.0 fL 82.0-98.0 MEAN CORPUSCULAR HEMOGLOBIN (BEAKER) (test 36.0 pg 27.0-33.0 ldom=426) MEAN CORPUSCULAR HEMOGLOBIN CONC (BEAKER) (test 33.6 GM/DL 32.0-36.0 pwqy=087) RED CELL DISTRIBUTION WIDTH (BEAKER) (test 13.9 % 10.3-14.2 umwd=074) PLATELET COUNT (BEAKER) (test ffar=209) 78 K/CU MM 150-430 MEAN PLATELET VOLUME (BEAKER) (test gyjt=102) 6.2 fL 6.5-10.5 NUCLEATED RED BLOOD CELLS (BEAKER) (test 0 /100 WBC 0-0 toyh=398) NEUTROPHILS RELATIVE PERCENT (BEAKER) (test 50 % tsnl=693) LYMPHOCYTES RELATIVE PERCENT (BEAKER) (test 25 % gjxn=394) MONOCYTES RELATIVE PERCENT (BEAKER) (test 19 % zsjw=350) EOSINOPHILS RELATIVE PERCENT (BEAKER) (test 6 % myov=135) BASOPHILS RELATIVE PERCENT (BEAKER) (test 1 % hlbb=326) NEUTROPHILS ABSOLUTE COUNT (BEAKER) (test 1.82 K/ L 1.80-8.00 jnrr=259) LYMPHOCYTES ABSOLUTE COUNT (BEAKER) (test 0.91 K/ L 1.48-4.50 vtkc=284) MONOCYTES ABSOLUTE COUNT (BEAKER) (test jhde=973) 0.69 K/ L 0.00-1.30 EOSINOPHILS ABSOLUTE COUNT (BEAKER) (test 0.21 K/ L 0.00-0.50 hcwl=349) BASOPHILS ABSOLUTE COUNT (BEAKER) (test tjmm=616) 0.02 K/ L 0.00-0.20 0.00HEPATIC FUNCTION [id number] 08:34:00 Test Item Value Reference Range Comments TOTAL PROTEIN (BEAKER) (test ldxp=959) 5.9 gm/dL 6.0-8.3 ALBUMIN (BEAKER) (test stew=4793) 3.2 g/dL 3.5-5.0 BILIRUBIN TOTAL (BEAKER) (test oeed=174) 5.4 mg/dL 0.2-1.2 BILIRUBIN DIRECT (BEAKER) (test jfpy=120) 2.5 mg/dL 0.1-0.5 ALKALINE PHOSPHATASE (BEAKER) (test tedm=442) 60 U/L 40-150 AST (SGOT) (BEAKER) (test xlza=519) 28 U/L 5-34 ALT (SGPT) (BEAKER) (test jafl=606) 10 U/L 6-55 Specimen moderately [id number] 08:16:00 Test Item Value Reference Range Comments PHOSPHORUS (BEAKER) (test pgad=325) 3.0 mg/dL 2.3-4.7 [id number] 08:16:00 Test Item Value Reference Range Comments MAGNESIUM (BEAKER) (test jucv=698) 1.6 mg/dL 1.6-2.6 BASIC METABOLIC [id number] 08:16:00 Test Item Value Reference Range Comments SODIUM (BEAKER) (test 133 meq/L 136-145 aujw=409) POTASSIUM (BEAKER) (test 3.6 meq/L 3.5-5.1 xsqo=922) CHLORIDE (BEAKER) (test 105 meq/L 98-107 reeh=996) CO2 (BEAKER) (test 20 meq/L 22-29 sukh=412) BLOOD UREA NITROGEN 18 mg/dL 7-21 (BEAKER) (test mxzw=063) CREATININE (BEAKER) (test 1.54 mg/dL 0.57-1.25 bmvq=852) GLUCOSE RANDOM (BEAKER) 70 mg/dL 70-105 (test ayll=771) CALCIUM (BEAKER) (test 8.2 mg/dL 8.4-10.2 whrn=513) EGFR (BEAKER) (test 48 mL/min/1.73 sq m ESTIMATED GFR IS NOT esko=3524) ACCURATE CREATININE CLEARANCE IN PREDICTING GLOMERULAR FILTRATION RATE. ESTIMATED GFR IS NOT APPLICABLE FOR DIALYSIS PATIENTS. Specimen moderately ictericCBC W/PLT COUNT & AUTO [id number] 08: 06:00 Test Item Value Reference Range Comments WHITE BLOOD CELL COUNT (BEAKER) (test qihv=810) 3.4 K/ L 4.0-10.0 RED BLOOD CELL COUNT (BEAKER) (test bciw=162) 2.03 M/ L 4.20-5.80 HEMOGLOBIN (BEAKER) (test brcj=407) 7.3 GM/DL 13.0-16.8 HEMATOCRIT (BEAKER) (test zewd=072) 21.6 % 40.0-50.0 MEAN CORPUSCULAR VOLUME (BEAKER) (test ngfp=189) 106.0 fL 82.0-98.0 MEAN CORPUSCULAR HEMOGLOBIN (BEAKER) (test 35.8 pg 27.0-33.0 sspo=734) MEAN CORPUSCULAR HEMOGLOBIN CONC (BEAKER) (test 33.7 GM/DL 32.0-36.0 ulzt=172) RED CELL DISTRIBUTION WIDTH (BEAKER) (test 13.5 % 10.3-14.2 uoih=983) PLATELET COUNT (BEAKER) (test rokz=091) 82 K/CU MM 150-430 MEAN PLATELET VOLUME (BEAKER) (test ntsx=348) 6.7 fL 6.5-10.5 NUCLEATED RED BLOOD CELLS (BEAKER) (test 0 /100 WBC 0-0 pjta=925) NEUTROPHILS RELATIVE PERCENT (BEAKER) (test 50 % bfkc=020) LYMPHOCYTES RELATIVE PERCENT (BEAKER) (test 25 % tjvf=032) MONOCYTES RELATIVE PERCENT (BEAKER) (test 19 % iaag=860) EOSINOPHILS RELATIVE PERCENT (BEAKER) (test 5 % vmjo=452) BASOPHILS RELATIVE PERCENT (BEAKER) (test 1 % tkba=486) NEUTROPHILS ABSOLUTE COUNT (BEAKER) (test 1.69 K/ L 1.80-8.00 zymg=628) LYMPHOCYTES ABSOLUTE COUNT (BEAKER) (test 0.83 K/ L 1.48-4.50 hgoj=526) MONOCYTES ABSOLUTE COUNT (BEAKER) (test cktf=773) 0.65 K/ L 0.00-1.30 EOSINOPHILS ABSOLUTE COUNT (BEAKER) (test 0.17 K/ L 0.00-0.50 teyy=821) BASOPHILS ABSOLUTE COUNT (BEAKER) (test pwue=434) 0.04 K/ L 0.00-0.20 0.00PROTHROMBIN [id number] 08:01:00 Test Item Value Reference Range Comments PROTIME (BEAKER) (test lacz=814) 27.6 seconds 11.7-14.7 INR (BEAKER) (test aqjl=103) 2.6 <=5.9 RECOMMENDED COUMADIN/WARFARIN INR THERAPY RANGESSTANDARD DOSE: 2.0 - 3.0 Includes: PROPHYLAXIS forvenous thrombosis, systemic embolization; TREATMENT for venous thrombosis and/or pulmonary embolus.HIGH RISK: Target INR is 2.5-3.5 for patients with mechanical heart valves.CALCIUM, [id number] 07:58:00 Test Item Value Reference Range Comments CALCIUM IONIZED (BEAKER) (test gtlq=025) 1.00 mmol/L 1.12-1.27 PH, BLOOD (BEAKER) (test qrgd=8862) 7.53 URINALYSIS W/ [id number] 18:42:00 Test Item Value Reference Range Comments COLOR (BEAKER) (test qsvy=193) Yellow CLARITY (BEAKER) (test vejm=555) Clear SPECIFIC GRAVITY UA (BEAKER) (test 1.009 1.001-1.035 kvos=482) PH UA (BEAKER) (test zskp=538) 7.5 5.0-8.0 PROTEIN UA (BEAKER) (test wout=213) Negative Negative GLUCOSE UA (BEAKER) (test qwfv=827) Negative Negative KETONES UA (BEAKER) (test tytm=455) Negative Negative BILIRUBIN UA (BEAKER) (test lzni=162) Negative Negative BLOOD UA (BEAKER) (test ckda=346) Negative Negative NITRITE UA (BEAKER) (test knaj=881) Negative Negative LEUKOCYTE ESTERASE UA (BEAKER) (test Negative Negative pgos=940) UROBILINOGEN UA (BEAKER) (test fsmd=243) 3.0 mg/dL 0.2-1.0 RBC UA (BEAKER) (test feos=741) 6 /HPF WBC UA (BEAKER) (test zywh=353) 1 /HPF SOURCE(BEAKER) (test efee=3621) Urine, Clean Catch PROTHROMBIN [id number] 15:13:00 Test Item Value Reference Range Comments PROTIME (BEAKER) (test uclj=103) 31.4 seconds 11.7-14.7 INR (BEAKER) (test aqte=296) 3.0 <=5.9 RECOMMENDED COUMADIN/WARFARIN INR THERAPY RANGESSTANDARD DOSE: 2.0 - 3.0 Includes: PROPHYLAXIS forvenous thrombosis, systemic embolization; TREATMENT for venous thrombosis and/or pulmonary embolus.HIGH RISK: Target INR is 2.5-3.5 for patients with mechanical heart valves.Draw after vitamin K administrationCBC W/PLT COUNT & AUTO [id number] 07:02:00 Test Item Value Reference Range Comments WHITE BLOOD CELL COUNT (BEAKER) (test nbjs=381) 3.0 K/ L 4.0-10.0 RED BLOOD CELL COUNT (BEAKER) (test cnez=411) 2.21 M/ L 4.20-5.80 HEMOGLOBIN (BEAKER) (test gfwv=993) 7.5 GM/DL 13.0-16.8 HEMATOCRIT (BEAKER) (test ydlb=251) 23.5 % 40.0-50.0 MEAN CORPUSCULAR VOLUME (BEAKER) (test vrdg=053) 106.0 fL 82.0-98.0 MEAN CORPUSCULAR HEMOGLOBIN (BEAKER) (test 34.0 pg 27.0-33.0 ouim=181) MEAN CORPUSCULAR HEMOGLOBIN CONC (BEAKER) (test 32.0 GM/DL 32.0-36.0 vzpr=684) RED CELL DISTRIBUTION WIDTH (BEAKER) (test 13.0 % 10.3-14.2 mzri=099) PLATELET COUNT (BEAKER) (test gctv=609) 81 K/CU MM 150-430 MEAN PLATELET VOLUME (BEAKER) (test wsri=037) 6.3 fL 6.5-10.5 NUCLEATED RED BLOOD CELLS (BEAKER) (test 0 /100 WBC 0-0 hyjj=744) NEUTROPHILS RELATIVE PERCENT (BEAKER) (test 52 % lfwf=201) LYMPHOCYTES RELATIVE PERCENT (BEAKER) (test 24 % pxrd=656) MONOCYTES RELATIVE PERCENT (BEAKER) (test 20 % dtta=529) EOSINOPHILS RELATIVE PERCENT (BEAKER) (test 3 % uifi=359) BASOPHILS RELATIVE PERCENT (BEAKER) (test 1 % ymrz=229) NEUTROPHILS ABSOLUTE COUNT (BEAKER) (test 1.53 K/ L 1.80-8.00 heim=937) LYMPHOCYTES ABSOLUTE COUNT (BEAKER) (test 0.71 K/ L 1.48-4.50 fygi=666) MONOCYTES ABSOLUTE COUNT (BEAKER) (test bsrs=782) 0.60 K/ L 0.00-1.30 EOSINOPHILS ABSOLUTE COUNT (BEAKER) (test 0.10 K/ L 0.00-0.50 vyum=096) BASOPHILS ABSOLUTE COUNT (BEAKER) (test ecwv=165) 0.03 K/ L 0.00-0.20 0.00BASIC METABOLIC [id number] 06:29:00 Test Item Value Reference Range Comments SODIUM (BEAKER) (test 135 meq/L 136-145 imiv=035) POTASSIUM (BEAKER) (test 4.0 meq/L 3.5-5.1 hfbx=055) CHLORIDE (BEAKER) (test 106 meq/L 98-107 hgmr=231) CO2 (BEAKER) (test 22 meq/L 22-29 tziz=987) BLOOD UREA NITROGEN 17 mg/dL 7-21 (BEAKER) (test uqso=098) CREATININE (BEAKER) (test 1.46 mg/dL 0.57-1.25 pxgr=397) GLUCOSE RANDOM (BEAKER) 75 mg/dL 70-105 (test ggey=370) CALCIUM (BEAKER) (test 8.0 mg/dL 8.4-10.2 ejzk=864) EGFR (BEAKER) (test 51 mL/min/1.73 sq m ESTIMATED GFR IS NOT tzpv=1394) ACCURATE CREATININE CLEARANCE IN PREDICTING GLOMERULAR FILTRATION RATE. ESTIMATED GFR IS NOT APPLICABLE FOR DIALYSIS PATIENTS. Specimen moderately ictericHEPATIC FUNCTION [id number] 06:29:00 Test Item Value Reference Range Comments TOTAL PROTEIN (BEAKER) (test uuag=491) 5.9 gm/dL 6.0-8.3 ALBUMIN (BEAKER) (test qqiq=0622) 3.0 g/dL 3.5-5.0 BILIRUBIN TOTAL (BEAKER) (test xkhg=724) 5.4 mg/dL 0.2-1.2 BILIRUBIN DIRECT (BEAKER) (test xolg=662) 2.7 mg/dL 0.1-0.5 ALKALINE PHOSPHATASE (BEAKER) (test bmhk=131) 65 U/L 40-150 AST (SGOT) (BEAKER) (test ftrm=489) 27 U/L 5-34 ALT (SGPT) (BEAKER) (test nujl=695) 7 U/L 6-55 Specimen moderately ictericPROTHROMBIN [id number] 06:23:00 Test Item Value Reference Range Comments PROTIME (BEAKER) (test bcvm=814) 31.2 seconds 11.7-14.7 INR (BEAKER) (test posn=321) 3.0 <=5.9 RECOMMENDED COUMADIN/WARFARIN INR THERAPY RANGESSTANDARD DOSE: 2.0 - 3.0 Includes: PROPHYLAXIS forvenous thrombosis, systemic embolization; TREATMENT for venous thrombosis and/or pulmonary embolus.HIGH RISK: Target INR is 2.5-3.5 for patients with mechanical heart valves.CBC W/PLT COUNT & AUTO [id number] 06:26:00 Test Item Value Reference Range Comments WHITE BLOOD CELL COUNT (BEAKER) (test eicn=943) 3.0 K/ L 4.0-10.0 RED BLOOD CELL COUNT (BEAKER) (test ezya=149) 2.16 M/ L 4.20-5.80 HEMOGLOBIN (BEAKER) (test sjfg=664) 7.4 GM/DL 13.0-16.8 HEMATOCRIT (BEAKER) (test lxfn=363) 23.1 % 40.0-50.0 MEAN CORPUSCULAR VOLUME (BEAKER) (test ofea=029) 107.0 fL 82.0-98.0 MEAN CORPUSCULAR HEMOGLOBIN (BEAKER) (test 34.4 pg 27.0-33.0 wsvq=428) MEAN CORPUSCULAR HEMOGLOBIN CONC (BEAKER) (test 32.1 GM/DL 32.0-36.0 iltx=448) RED CELL DISTRIBUTION WIDTH (BEAKER) (test 13.1 % 10.3-14.2 kvbj=307) PLATELET COUNT (BEAKER) (test yqjf=700) 72 K/CU MM 150-430 MEAN PLATELET VOLUME (BEAKER) (test rtnh=937) 6.1 fL 6.5-10.5 NUCLEATED RED BLOOD CELLS (BEAKER) (test 0 /100 WBC 0-0 cmqn=508) NEUTROPHILS RELATIVE PERCENT (BEAKER) (test 58 % sler=460) LYMPHOCYTES RELATIVE PERCENT (BEAKER) (test 21 % aaxe=454) MONOCYTES RELATIVE PERCENT (BEAKER) (test 15 % yrav=427) EOSINOPHILS RELATIVE PERCENT (BEAKER) (test 4 % eoow=192) BASOPHILS RELATIVE PERCENT (BEAKER) (test 1 % nrmm=144) NEUTROPHILS ABSOLUTE COUNT (BEAKER) (test 1.73 K/ L 1.80-8.00 rtag=879) LYMPHOCYTES ABSOLUTE COUNT (BEAKER) (test 0.64 K/ L 1.48-4.50 ryzy=249) MONOCYTES ABSOLUTE COUNT (BEAKER) (test iycg=759) 0.45 K/ L 0.00-1.30 EOSINOPHILS ABSOLUTE COUNT (BEAKER) (test 0.13 K/ L 0.00-0.50 sbcz=898) BASOPHILS ABSOLUTE COUNT (BEAKER) (test muwh=858) 0.02 K/ L 0.00-0.20 0.00BASIC METABOLIC [id number] 06:24:00 Test Item Value Reference Range Comments SODIUM (BEAKER) (test 134 meq/L 136-145 uwha=307) POTASSIUM (BEAKER) (test 3.7 meq/L 3.5-5.1 qllx=101) CHLORIDE (BEAKER) (test 105 meq/L 98-107 bsbe=574) CO2 (BEAKER) (test 21 meq/L 22-29 emjo=242) BLOOD UREA NITROGEN 18 mg/dL 7-21 (BEAKER) (test ztyv=098) CREATININE (BEAKER) (test 1.53 mg/dL 0.57-1.25 jxre=655) GLUCOSE RANDOM (BEAKER) 103 mg/dL 70-105 (test pfub=249) CALCIUM (BEAKER) (test 7.6 mg/dL 8.4-10.2 qpmo=020) EGFR (BEAKER) (test 48 mL/min/1.73 sq m ESTIMATED GFR IS NOT hhxu=4335) ACCURATE CREATININE CLEARANCE IN PREDICTING GLOMERULAR FILTRATION RATE. ESTIMATED GFR IS NOT APPLICABLE FOR DIALYSIS PATIENTS. Specimen moderately ictericHEPATIC FUNCTION [id number] 06:19:00 Test Item Value Reference Range Comments TOTAL PROTEIN (BEAKER) (test ovdq=660) 5.6 gm/dL 6.0-8.3 ALBUMIN (BEAKER) (test zypl=4428) 2.4 g/dL 3.5-5.0 BILIRUBIN TOTAL (BEAKER) (test jspt=606) 4.8 mg/dL 0.2-1.2 BILIRUBIN DIRECT (BEAKER) (test sikr=968) 2.6 mg/dL 0.1-0.5 ALKALINE PHOSPHATASE (BEAKER) (test ouzn=169) 70 U/L 40-150 AST (SGOT) (BEAKER) (test jddp=115) 28 U/L 5-34 ALT (SGPT) (BEAKER) (test vsmc=724) 11 U/L 6-55 Specimen moderately ictericPROTHROMBIN [id number] 06:00:00 Test Item Value Reference Range Comments PROTIME (BEAKER) (test vpzt=262) 36.7 seconds 11.7-14.7 INR (BEAKER) (test lmlz=278) 3.7 <=5.9 RECOMMENDED COUMADIN/WARFARIN INR THERAPY RANGESSTANDARD DOSE: 2.0 - 3.0 Includes: PROPHYLAXIS forvenous thrombosis, systemic embolization; TREATMENT for venous thrombosis and/or pulmonary embolus.HIGH RISK: Target INR is 2.5-3.5 for patients with mechanical heart valves.BODY FLUID CULTURE + GRAM [id number] 00:51:00 Test Item Value Reference Range Comments CULTURE (BEAKER) (test teri=2438) No growth GRAM STAIN RESULT (BEAKER) (test 3+ WBCs khxv=5788) GRAM STAIN RESULT (BEAKER) (test No organisms seen vfjc=35589) BLOOD [id number] 17:08:00 Test Item Value Reference Range Comments CULTURE (BEAKER) (test cyeu=5752) No growth in 5 days BLOOD [id number] 17:06:00 Test Item Value Reference Range Comments CULTURE (BEAKER) (test vtja=3964) No growth in 5 days CBC W/PLT COUNT & AUTO [id number] 07:05:00 Test Item Value Reference Range Comments WHITE BLOOD CELL COUNT (BEAKER) (test syhv=409) 3.5 K/ L 4.0-10.0 RED BLOOD CELL COUNT (BEAKER) (test zrjd=641) 2.16 M/ L 4.20-5.80 HEMOGLOBIN (BEAKER) (test wdlz=133) 7.8 GM/DL 13.0-16.8 HEMATOCRIT (BEAKER) (test cubw=303) 23.9 % 40.0-50.0 MEAN CORPUSCULAR VOLUME (BEAKER) (test mrvh=455) 111.0 fL 82.0-98.0 MEAN CORPUSCULAR HEMOGLOBIN (BEAKER) (test 36.3 pg 27.0-33.0 sccx=549) MEAN CORPUSCULAR HEMOGLOBIN CONC (BEAKER) (test 32.8 GM/DL 32.0-36.0 wzvo=946) RED CELL DISTRIBUTION WIDTH (BEAKER) (test 13.9 % 10.3-14.2 mxid=182) PLATELET COUNT (BEAKER) (test cwvh=593) 72 K/CU MM 150-430 MEAN PLATELET VOLUME (BEAKER) (test tsdb=559) 6.4 fL 6.5-10.5 NUCLEATED RED BLOOD CELLS (BEAKER) (test 0 /100 WBC 0-0 hmso=567) NEUTROPHILS RELATIVE PERCENT (BEAKER) (test 51 % ixtq=793) LYMPHOCYTES RELATIVE PERCENT (BEAKER) (test 25 % emul=161) MONOCYTES RELATIVE PERCENT (BEAKER) (test 18 % snfk=466) EOSINOPHILS RELATIVE PERCENT (BEAKER) (test 6 % ovif=665) BASOPHILS RELATIVE PERCENT (BEAKER) (test 0 % bjrf=261) NEUTROPHILS ABSOLUTE COUNT (BEAKER) (test 1.77 K/ L 1.80-8.00 xifq=098) LYMPHOCYTES ABSOLUTE COUNT (BEAKER) (test 0.87 K/ L 1.48-4.50 lqeu=690) MONOCYTES ABSOLUTE COUNT (BEAKER) (test ydhh=878) 0.62 K/ L 0.00-1.30 EOSINOPHILS ABSOLUTE COUNT (BEAKER) (test 0.22 K/ L 0.00-0.50 gjkj=132) BASOPHILS ABSOLUTE COUNT (BEAKER) (test idbf=132) 0.01 K/ L 0.00-0.20 0.00BASIC METABOLIC [id number] 06:54:00 Test Item Value Reference Range Comments SODIUM (BEAKER) (test 137 meq/L 136-145 ldyn=159) POTASSIUM (BEAKER) (test 3.8 meq/L 3.5-5.1 hlxb=306) CHLORIDE (BEAKER) (test 109 meq/L 98-107 bbni=813) CO2 (BEAKER) (test 21 meq/L 22-29 uoop=992) BLOOD UREA NITROGEN 17 mg/dL 7-21 (BEAKER) (test awpf=402) CREATININE (BEAKER) (test 1.60 mg/dL 0.57-1.25 okjb=598) GLUCOSE RANDOM (BEAKER) 76 mg/dL 70-105 (test waps=169) CALCIUM (BEAKER) (test 7.5 mg/dL 8.4-10.2 ztkr=399) EGFR (BEAKER) (test 46 mL/min/1.73 sq m ESTIMATED GFR IS NOT gfuu=2747) ACCURATE CREATININE CLEARANCE IN PREDICTING GLOMERULAR FILTRATION RATE. ESTIMATED GFR IS NOT APPLICABLE FOR DIALYSIS PATIENTS. Specimen moderately ictericHEPATIC FUNCTION [id number] 06:53:00 Test Item Value Reference Range Comments TOTAL PROTEIN (BEAKER) (test mlxn=396) 5.6 gm/dL 6.0-8.3 ALBUMIN (BEAKER) (test olny=6789) 2.4 g/dL 3.5-5.0 BILIRUBIN TOTAL (BEAKER) (test ikyc=934) 4.5 mg/dL 0.2-1.2 BILIRUBIN DIRECT (BEAKER) (test nysh=118) 2.7 mg/dL 0.1-0.5 ALKALINE PHOSPHATASE (BEAKER) (test lgrs=230) 74 U/L 40-150 AST (SGOT) (BEAKER) (test gsvi=869) 36 U/L 5-34 ALT (SGPT) (BEAKER) (test oqed=124) 13 U/L 6-55 Specimen moderately ictericB-TYPE NATRIURETIC FACTOR (BNP)[id number] 06:52:00 Test Item Value Reference Range Comments B-TYPE NATRIURETIC PEPTIDE (BEAKER) (test 446 pg/mL 0-100 pmfl=575) PROTHROMBIN [id number] 06:36:00 Test Item Value Reference Range Comments PROTIME (BEAKER) (test shpg=736) 28.7 seconds 11.7-14.7 INR (BEAKER) (test phii=507) 2.7 <=5.9 RECOMMENDED COUMADIN/WARFARIN INR THERAPY RANGESSTANDARD DOSE: 2.0 - 3.0 Includes: PROPHYLAXIS forvenous thrombosis, systemic embolization; TREATMENT for venous thrombosis and/or pulmonary embolus.HIGH RISK: Target INR is 2.5-3.5 for patients with mechanical heart valves.EOSINOPHIL SMEAR, [id number] 21: 44:00 Test Item Value Reference Range Comments EOSINOPHIL SMEAR, URINE (BEAKER) (test No EOS seen No EOS seen tivw=4305) CREATININE, RANDOM [id number] 18:02:00 Test Item Value Reference Range Comments CREATININE URINE (BEAKER) (test exdg=060) 96.3 mg/dL Reference Range: No NormalsSODIUM, RANDOM [id number] 18:02:00 Test Item Value Reference Range Comments SODIUM URINE (BEAKER) (test wygn=129) 58 meq/L Reference Range: No NormalsURINALYSIS W/ [id number] 17:33:00 Test Item Value Reference Range Comments COLOR (BEAKER) (test nufu=305) Yellow CLARITY (BEAKER) (test iftd=486) Clear SPECIFIC GRAVITY UA (BEAKER) (test jdsr=738) 1.009 1.001-1.035 PH UA (BEAKER) (test dzgm=077) 6.0 5.0-8.0 PROTEIN UA (BEAKER) (test fwsg=705) Negative Negative GLUCOSE UA (BEAKER) (test zuby=608) Negative Negative KETONES UA (BEAKER) (test tdhd=243) Negative Negative BILIRUBIN UA (BEAKER) (test hvww=546) Negative Negative BLOOD UA (BEAKER) (test mcsp=953) Negative Negative NITRITE UA (BEAKER) (test dxqu=134) Negative Negative LEUKOCYTE ESTERASE UA (BEAKER) (test smzc=579) Negative Negative UROBILINOGEN UA (BEAKER) (test rvlr=450) 4.0 mg/dL 0.2-1.0 RBC UA (BEAKER) (test ytlo=261) < /HPF WBC UA (BEAKER) (test bmja=543) 2 /HPF BACTERIA (BEAKER) (test ljzf=567) Rare SOURCE(BEAKER) (test bkah=5084) CBC W/PLT COUNT & AUTO [id number] 06:53:00 Test Item Value Reference Range Comments WHITE BLOOD CELL COUNT (BEAKER) (test cpct=104) 3.5 K/ L 4.0-10.0 RED BLOOD CELL COUNT (BEAKER) (test lqoc=273) 2.17 M/ L 4.20-5.80 HEMOGLOBIN (BEAKER) (test muqg=735) 7.9 GM/DL 13.0-16.8 HEMATOCRIT (BEAKER) (test fauf=333) 23.9 % 40.0-50.0 MEAN CORPUSCULAR VOLUME (BEAKER) (test poyz=127) 110.0 fL 82.0-98.0 MEAN CORPUSCULAR HEMOGLOBIN (BEAKER) (test 36.1 pg 27.0-33.0 wxpz=478) MEAN CORPUSCULAR HEMOGLOBIN CONC (BEAKER) (test 32.9 GM/DL 32.0-36.0 ommt=649) RED CELL DISTRIBUTION WIDTH (BEAKER) (test 14.0 % 10.3-14.2 xjql=631) PLATELET COUNT (BEAKER) (test manp=302) 77 K/CU MM 150-430 MEAN PLATELET VOLUME (BEAKER) (test uqgh=631) 6.1 fL 6.5-10.5 NUCLEATED RED BLOOD CELLS (BEAKER) (test 0 /100 WBC 0-0 kssx=282) NEUTROPHILS RELATIVE PERCENT (BEAKER) (test 56 % vswg=155) LYMPHOCYTES RELATIVE PERCENT (BEAKER) (test 20 % glmy=445) MONOCYTES RELATIVE PERCENT (BEAKER) (test 18 % utzj=290) EOSINOPHILS RELATIVE PERCENT (BEAKER) (test 6 % fypt=207) BASOPHILS RELATIVE PERCENT (BEAKER) (test 1 % vzmi=752) NEUTROPHILS ABSOLUTE COUNT (BEAKER) (test 1.95 K/ L 1.80-8.00 jakg=915) LYMPHOCYTES ABSOLUTE COUNT (BEAKER) (test 0.69 K/ L 1.48-4.50 sxoj=189) MONOCYTES ABSOLUTE COUNT (BEAKER) (test ubcr=703) 0.62 K/ L 0.00-1.30 EOSINOPHILS ABSOLUTE COUNT (BEAKER) (test 0.20 K/ L 0.00-0.50 pphk=969) BASOPHILS ABSOLUTE COUNT (BEAKER) (test rbds=893) 0.03 K/ L 0.00-0.20 0.00BASI METABOLIC [id number] 06:45:00 Test Item Value Reference Range Comments SODIUM (BEAKER) (test 134 meq/L 136-145 hzct=021) POTASSIUM (BEAKER) (test 3.6 meq/L 3.5-5.1 xqik=453) CHLORIDE (BEAKER) (test 106 meq/L 98-107 fdlb=589) CO2 (BEAKER) (test 21 meq/L 22-29 iffx=030) BLOOD UREA NITROGEN 14 mg/dL 7-21 (BEAKER) (test zxpr=727) CREATININE (BEAKER) (test 1.33 mg/dL 0.57-1.25 ntxr=939) GLUCOSE RANDOM (BEAKER) 71 mg/dL 70-105 (test glbi=403) CALCIUM (BEAKER) (test 7.6 mg/dL 8.4-10.2 awcj=086) EGFR (BEAKER) (test 57 mL/min/1.73 sq m ESTIMATED GFR IS NOT leyj=7750) ACCURATE CREATININE CLEARANCE IN PREDICTING GLOMERULAR FILTRATION RATE. ESTIMATED GFR IS NOT APPLICABLE FOR DIALYSIS PATIENTS. Specimen moderately ictericHEPATIC FUNCTION [id number] 06:40:00 Test Item Value Reference Range Comments TOTAL PROTEIN (BEAKER) (test arnv=136) 5.6 gm/dL 6.0-8.3 ALBUMIN (BEAKER) (test spoc=3872) 2.1 g/dL 3.5-5.0 BILIRUBIN TOTAL (BEAKER) (test optb=963) 4.4 mg/dL 0.2-1.2 BILIRUBIN DIRECT (BEAKER) (test xgbz=738) 2.9 mg/dL 0.1-0.5 ALKALINE PHOSPHATASE (BEAKER) (test miyh=656) 86 U/L 40-150 AST (SGOT) (BEAKER) (test okmn=374) 45 U/L 5-34 ALT (SGPT) (BEAKER) (test fnzs=541) 13 U/L 6-55 Specimen moderately ictericPROTHROMBIN [id number] 06:05:00 Test Item Value Reference Range Comments PROTIME (BEAKER) (test xxlu=021) 29.4 seconds 11.7-14.7 INR (BEAKER) (test nniu=856) 2.8 <=5.9 RECOMMENDED COUMADIN/WARFARIN INR THERAPY RANGESSTANDARD DOSE: 2.0 - 3.0 Includes: PROPHYLAXIS forvenous thrombosis, systemic embolization; TREATMENT for venous thrombosis and/or pulmonary embolus.HIGH RISK: Target INR is 2.5-3.5 for patients with mechanical heart valves.BODY FLUID CELL COUNT WITH [id number] 20:51:00 Test Item Value Reference Range Comments APPEARANCE FLUID (BEAKER) (test zlsd=988) Slightly Hazy Clear COLOR FLUID (BEAKER) (test qhws=347) Yellow Colorless, Straw RBC FLUID (BEAKER) (test hxjd=747) 545 /cu mm <=1 ADJUSTED WBC FLUID (BEAKER) (test xyru=5116) 104 /cu mm <=5 LINING CELLS (BEAKER) (test tsvd=5743) 1 /cu mm <=1 NEUTROPHILS FLUID (BEAKER) (test hzxw=3928) 3 % LYMPHS FLUID (BEAKER) (test gjil=625) 13 % MONO/MACROPHAGE FLUID (BEAKER) (test 84 % ihdq=619) EOSINOPHILS FLUID (BEAKER) (test jfyx=435) 0 % BASO FLUID (BEAKER) (test xluq=020) 0 % CONTAINER BODY FLUID (BEAKER) (test EDTA Tube cxzp=5034) POCT-GLUCOSE [id number] 18:48:00 Test Item Value Reference Range Comments POC-GLUCOSE METER (BEAKER) 105 mg/dL 70-110 TESTED AT [facility] [address] [facility] (test ruik=6648) [facility] [address] BASIC METABOLIC [id number] 05:45:00 Test Item Value Reference Range Comments SODIUM (BEAKER) (test 133 meq/L 136-145 ueco=490) POTASSIUM (BEAKER) (test 4.3 meq/L 3.5-5.1 Specimen moderately kmun=294) hemolyzed CHLORIDE (BEAKER) (test 107 meq/L 98-107 qvvl=500) CO2 (BEAKER) (test 19 meq/L 22-29 ltvl=958) BLOOD UREA NITROGEN 10 mg/dL 7-21 (BEAKER) (test wfqw=302) CREATININE (BEAKER) (test 0.86 mg/dL 0.57-1.25 Specimen moderately fatv=613) hemolyzed GLUCOSE RANDOM (BEAKER) 68 mg/dL 70-105 (test rcfl=964) CALCIUM (BEAKER) (test 7.5 mg/dL 8.4-10.2 natt=371) EGFR (BEAKER) (test 94 mL/min/1.73 sq m ESTIMATED GFR IS NOT eyvt=6407) ACCURATE CREATININE CLEARANCE IN PREDICTING GLOMERULAR FILTRATION RATE. ESTIMATED GFR IS NOT APPLICABLE FOR DIALYSIS PATIENTS. Specimen slightly ictericHEPATIC FUNCTION [id number] 05:45:00 Test Item Value Reference Range Comments TOTAL PROTEIN (BEAKER) (test 5.9 gm/dL 6.0-8.3 Specimen moderately hemolyzed cdao=537) ALBUMIN (BEAKER) (test 1.9 g/dL 3.5-5.0 Specimen moderately hemolyzed iehr=7189) BILIRUBIN TOTAL (BEAKER) (test 4.4 mg/dL 0.2-1.2 Specimen moderately hemolyzed pdiy=476) BILIRUBIN DIRECT (BEAKER) 2.6 mg/dL 0.1-0.5 Specimen moderately hemolyzed (test wzbe=906) ALKALINE PHOSPHATASE (BEAKER) 86 U/L 40-150 (test avqf=279) AST (SGOT) (BEAKER) (test 74 U/L 5-34 Specimen moderately hemolyzed sxmh=073) ALT (SGPT) (BEAKER) (test 17 U/L 6-55 Specimen moderately mpgz=105) hemolyzed Specimen slightly ictericCBC W/PLT COUNT & AUTO [id number] 05:21 :00 Test Item Value Reference Range Comments WHITE BLOOD CELL COUNT (BEAKER) (test hgoy=578) 3.5 K/ L 4.0-10.0 RED BLOOD CELL COUNT (BEAKER) (test oxxm=856) 2.06 M/ L 4.20-5.80 HEMOGLOBIN (BEAKER) (test ubkp=546) 7.9 GM/DL 13.0-16.8 HEMATOCRIT (BEAKER) (test vdsx=586) 22.8 % 40.0-50.0 MEAN CORPUSCULAR VOLUME (BEAKER) (test fpmx=519) 110.0 fL 82.0-98.0 MEAN CORPUSCULAR HEMOGLOBIN (BEAKER) (test 38.2 pg 27.0-33.0 xdfo=619) MEAN CORPUSCULAR HEMOGLOBIN CONC (BEAKER) (test 34.6 GM/DL 32.0-36.0 vwtc=318) RED CELL DISTRIBUTION WIDTH (BEAKER) (test 13.5 % 10.3-14.2 kurw=964) PLATELET COUNT (BEAKER) (test omqa=577) 61 K/CU MM 150-430 MEAN PLATELET VOLUME (BEAKER) (test ipcu=784) 6.8 fL 6.5-10.5 NUCLEATED RED BLOOD CELLS (BEAKER) (test 0 /100 WBC 0-0 nths=599) NEUTROPHILS RELATIVE PERCENT (BEAKER) (test 51 % fjpc=967) LYMPHOCYTES RELATIVE PERCENT (BEAKER) (test 24 % pnah=153) MONOCYTES RELATIVE PERCENT (BEAKER) (test 18 % eosx=320) EOSINOPHILS RELATIVE PERCENT (BEAKER) (test 7 % tfkj=711) BASOPHILS RELATIVE PERCENT (BEAKER) (test 1 % cafx=216) NEUTROPHILS ABSOLUTE COUNT (BEAKER) (test 1.76 K/ L 1.80-8.00 cusl=080) LYMPHOCYTES ABSOLUTE COUNT (BEAKER) (test 0.85 K/ L 1.48-4.50 cbat=591) MONOCYTES ABSOLUTE COUNT (BEAKER) (test crow=523) 0.61 K/ L 0.00-1.30 EOSINOPHILS ABSOLUTE COUNT (BEAKER) (test 0.23 K/ L 0.00-0.50 vzes=382) BASOPHILS ABSOLUTE COUNT (BEAKER) (test isxd=784) 0.02 K/ L 0.00-0.20 0.00PROTHROMBIN [id number] 05:19:00 Test Item Value Reference Range Comments PROTIME (BEAKER) (test yrbm=476) 28.2 seconds 11.7-14.7 INR (BEAKER) (test tijw=969) 2.6 <=5.9 RECOMMENDED COUMADIN/WARFARIN INR THERAPY RANGESSTANDARD DOSE: 2.0 - 3.0 Includes: PROPHYLAXIS forvenous thrombosis, systemic embolization; TREATMENT for venous thrombosis and/or pulmonary embolus.HIGH RISK: Target INR is 2.5-3.5 for patients with mechanical heart valves.BODY FLUID CULTURE + GRAM [id number] 14:14:00 Test Item Value Reference Range Comments CULTURE (BEAKER) (test ejqm=4101) No growth GRAM STAIN RESULT (BEAKER) (test 2+ WBCs ivjb=4568) GRAM STAIN RESULT (BEAKER) (test No organisms seen tcdu=44154) CBC W/PLT COUNT & AUTO [id number] 10:28:00 Test Item Value Reference Range Comments WHITE BLOOD CELL COUNT (BEAKER) (test qwpa=182) 3.6 K/ L 4.0-10.0 RED BLOOD CELL COUNT (BEAKER) (test hfwd=019) 2.17 M/ L 4.20-5.80 HEMOGLOBIN (BEAKER) (test rzoe=971) 7.7 GM/DL 13.0-16.8 HEMATOCRIT (BEAKER) (test bdzj=847) 23.8 % 40.0-50.0 MEAN CORPUSCULAR VOLUME (BEAKER) (test lqdr=996) 110.0 fL 82.0-98.0 MEAN CORPUSCULAR HEMOGLOBIN (BEAKER) (test 35.3 pg 27.0-33.0 jjhk=631) MEAN CORPUSCULAR HEMOGLOBIN CONC (BEAKER) (test 32.1 GM/DL 32.0-36.0 hmer=313) RED CELL DISTRIBUTION WIDTH (BEAKER) (test 13.7 % 10.3-14.2 mcky=867) PLATELET COUNT (BEAKER) (test vjno=684) 62 K/CU MM 150-430 MEAN PLATELET VOLUME (BEAKER) (test csff=854) 6.5 fL 6.5-10.5 NUCLEATED RED BLOOD CELLS (BEAKER) (test 0 /100 WBC 0-0 zvam=408) NEUTROPHILS RELATIVE PERCENT (BEAKER) (test 58 % fcst=638) LYMPHOCYTES RELATIVE PERCENT (BEAKER) (test 18 % xuls=032) MONOCYTES RELATIVE PERCENT (BEAKER) (test 17 % fmzi=348) EOSINOPHILS RELATIVE PERCENT (BEAKER) (test 8 % fjxz=392) BASOPHILS RELATIVE PERCENT (BEAKER) (test 0 % qqxp=213) NEUTROPHILS ABSOLUTE COUNT (BEAKER) (test 2.10 K/ L 1.80-8.00 ayer=628) LYMPHOCYTES ABSOLUTE COUNT (BEAKER) (test 0.63 K/ L 1.48-4.50 imsm=313) MONOCYTES ABSOLUTE COUNT (BEAKER) (test eqob=928) 0.59 K/ L 0.00-1.30 EOSINOPHILS ABSOLUTE COUNT (BEAKER) (test 0.28 K/ L 0.00-0.50 icud=425) BASOPHILS ABSOLUTE COUNT (BEAKER) (test tsfn=580) 0.00 K/ L 0.00-0.20 [id number] 10:16:00 Test Item Value Reference Range Comments PROCALCITONIN (BEAKER) (test ckwp=3213) < ng/mL <0.05 SEPSIS RISK (ng/mL)Low: 0.05-0.50Intermediate: 0.51-2.00High: & gt;=2.01HEPATIC FUNCTION [id number] 06:26:00 Test Item Value Reference Range Comments TOTAL PROTEIN (BEAKER) (test jsnh=585) 5.6 gm/dL 6.0-8.3 ALBUMIN (BEAKER) (test uxtu=6237) 1.9 g/dL 3.5-5.0 BILIRUBIN TOTAL (BEAKER) (test eggo=701) 4.7 mg/dL 0.2-1.2 BILIRUBIN DIRECT (BEAKER) (test yzhy=432) 2.9 mg/dL 0.1-0.5 ALKALINE PHOSPHATASE (BEAKER) (test zwgc=390) 85 U/L 40-150 AST (SGOT) (BEAKER) (test ouqu=857) 53 U/L 5-34 ALT (SGPT) (BEAKER) (test shdc=152) 14 U/L 6-55 Specimen moderately ictericBASIC METABOLIC [id number] 06:26:00 Test Item Value Reference Range Comments SODIUM (BEAKER) (test 134 meq/L 136-145 usfk=362) POTASSIUM (BEAKER) (test 3.8 meq/L 3.5-5.1 fvlf=591) CHLORIDE (BEAKER) (test 107 meq/L 98-107 vnkj=549) CO2 (BEAKER) (test 19 meq/L 22-29 wqns=072) BLOOD UREA NITROGEN 8 mg/dL 7-21 (BEAKER) (test orax=521) CREATININE (BEAKER) (test 0.73 mg/dL 0.57-1.25 bkct=821) GLUCOSE RANDOM (BEAKER) 73 mg/dL 70-105 (test cxgu=113) CALCIUM (BEAKER) (test 7.2 mg/dL 8.4-10.2 pngt=817) EGFR (BEAKER) (test 113 mL/min/1.73 sq m ESTIMATED GFR IS NOT eswj=7601) ACCURATE CREATININE CLEARANCE IN PREDICTING GLOMERULAR FILTRATION RATE. ESTIMATED GFR IS NOT APPLICABLE FOR DIALYSIS PATIENTS. Specimen moderately ictericPROTHROMBIN TIME/[id number] 06:05:00 Test Item Value Reference Range Comments PROTIME (BEAKER) (test bnsp=827) 30.9 seconds 11.7-14.7 INR (BEAKER) (test ilxb=748) 3.0 <=5.9 RECOMMENDED COUMADIN/WARFARIN INR THERAPY RANGESSTANDARD DOSE: 2.0 - 3.0 Includes: PROPHYLAXIS forvenous thrombosis, systemic embolization; TREATMENT for venous thrombosis and/or pulmonary embolus.HIGH RISK: Target INR is 2.5-3.5 for patients with mechanical heart valves.[id number] 05:54:00 Test Item Value Reference Range Comments PREALBUMIN (BEAKER) (test gjdl=152) < mg/dL 14-45 URINE [id number] 12:11:00 Test Item Value Reference Range Comments CULTURE (BEAKER) (test uqaf=1878) No growth VANCOMYCIN LEVEL, [id number] 09:26:00 Test Item Value Reference Range Comments VANCOMYCIN TROUGH (BEAKER) (test bfvk=020) 15.3 ug/mL 10.0-20.0 HEPATIC FUNCTION [id number] 06:17:00 Test Item Value Reference Range Comments TOTAL PROTEIN (BEAKER) (test fsht=374) 5.6 gm/dL 6.0-8.3 ALBUMIN (BEAKER) (test jhqt=9924) 2.0 g/dL 3.5-5.0 BILIRUBIN TOTAL (BEAKER) (test bleo=681) 4.2 mg/dL 0.2-1.2 BILIRUBIN DIRECT (BEAKER) (test cxkr=780) 2.7 mg/dL 0.1-0.5 ALKALINE PHOSPHATASE (BEAKER) (test buol=407) 98 U/L 40-150 AST (SGOT) (BEAKER) (test vzfj=526) 45 U/L 5-34 ALT (SGPT) (BEAKER) (test pzbf=214) 12 U/L 6-55 Specimen slightly ictericBASIC METABOLIC [id number] 06:17:00 Test Item Value Reference Range Comments SODIUM (BEAKER) (test 133 meq/L 136-145 llsy=806) POTASSIUM (BEAKER) (test 3.4 meq/L 3.5-5.1 psef=073) CHLORIDE (BEAKER) (test 107 meq/L 98-107 oqkl=513) CO2 (BEAKER) (test 22 meq/L 22-29 hrbt=085) BLOOD UREA NITROGEN 7 mg/dL 7-21 (BEAKER) (test cjrw=513) CREATININE (BEAKER) (test 0.73 mg/dL 0.57-1.25 qoqa=646) GLUCOSE RANDOM (BEAKER) 87 mg/dL 70-105 (test rhqh=614) CALCIUM (BEAKER) (test 7.2 mg/dL 8.4-10.2 zaes=160) EGFR (BEAKER) (test 113 mL/min/1.73 sq m ESTIMATED GFR IS NOT fvua=2599) ACCURATE CREATININE CLEARANCE IN PREDICTING GLOMERULAR FILTRATION RATE. ESTIMATED GFR IS NOT APPLICABLE FOR DIALYSIS PATIENTS. Specimen slightly ictericPROTHROMBIN [id number] 06:04:00 Test Item Value Reference Range Comments PROTIME (BEAKER) (test svir=310) 31.7 seconds 11.7-14.7 INR (BEAKER) (test cldl=908) 3.0 <=5.9 RECOMMENDED COUMADIN/WARFARIN INR THERAPY RANGESSTANDARD DOSE: 2.0 - 3.0 Includes: PROPHYLAXIS forvenous thrombosis, systemic embolization; TREATMENT for venous thrombosis and/or pulmonary embolus.HIGH RISK: Target INR is 2.5-3.5 for patients with mechanical heart valves.VITAMIN B12 AND [id number] 19:36 :00 Test Item Value Reference Range Comments VITAMIN B12 (BEAKER) (test mbmr=446) 1121 pg/mL 213-816 FOLATE (BEAKER) (test xtxq=632) 18.3 ng/mL >=7.0 Effective 09/13/2014: Folate Reference Range ChangeNew: >=7.0 Previous: & gt;=5.4VITAMIN B12 AND [id number] 14:57:00 Test Item Value Reference Range Comments VITAMIN B12 (BEAKER) (test lvmz=523) 1325 pg/mL 213-816 FOLATE (BEAKER) (test ghef=239) 8.3 ng/mL >=7.0 Effective 09/13/2014: Folate Reference Range ChangeNew: >=7.0 Previous: & gt;=5.4ANTI-NUCLEAR ANTIBODY (CHERYL)2017-02-03 13:56:00 Test Item Value Reference Range Comments ANTI-NUCLEAR ANTIBODY (CHERYL) (BEAKER) (test Negative Negative ysor=758) HEPATITIS B CORE ANTIBODY, [id number] 12:27:00 Test Item Value Reference Range Comments HEPATITIS B CORE TOTAL ANTIBODY (BEAKER) (test Nonreactive Nonreactive exzi=709) CRYPTOCOCCAL [id number] 11:25:00 Test Item Value Reference Range Comments CRYPTOCOCCAL ANTIGEN, SERUM (BEAKER) (test Negative Negative, Interference bywm=5637) HEPATITIS B SURFACE [id number] 11:15:00 Test Item Value Reference Range Comments HEPATITIS B SURFACE ANTIBODY (BEAKER) (test < mIU/mL <8.0 jyos=470) HEPATITIS B SURFACE [id number] 09:53:00 Test Item Value Reference Range Comments HEPATITIS B SURFACE ANTIGEN (2) (BEAKER) (test Nonreactive Nonreactive jlsn=2498) HIV-1 ANTIGEN WITH HIV-1/2 [id number] 09:53:00 Test Item Value Reference Range Comments HIV-1 ANTIGEN WITH HIV 1\\T\\2 ANTIBODY (2) Nonreactive Nonreactive (BEAKER) (test mxdr=3639) HEPATIC FUNCTION [id number] 07:01:00 Test Item Value Reference Range Comments TOTAL PROTEIN (BEAKER) (test uflh=426) 5.5 gm/dL 6.0-8.3 ALBUMIN (BEAKER) (test mnng=3497) 2.0 g/dL 3.5-5.0 BILIRUBIN TOTAL (BEAKER) (test gycf=734) 3.8 mg/dL 0.2-1.2 BILIRUBIN DIRECT (BEAKER) (test crnl=746) 2.5 mg/dL 0.1-0.5 ALKALINE PHOSPHATASE (BEAKER) (test ggdl=268) 108 U/L 40-150 AST (SGOT) (BEAKER) (test tfxx=203) 40 U/L 5-34 ALT (SGPT) (BEAKER) (test qama=894) 10 U/L 6-55 Specimen slightly ictericBASIC METABOLIC [id number] 07:01:00 Test Item Value Reference Range Comments SODIUM (BEAKER) (test 133 meq/L 136-145 eaud=867) POTASSIUM (BEAKER) (test 3.7 meq/L 3.5-5.1 afpl=057) CHLORIDE (BEAKER) (test 108 meq/L 98-107 hjkd=444) CO2 (BEAKER) (test 20 meq/L 22-29 dqlb=774) BLOOD UREA NITROGEN 7 mg/dL 7-21 (BEAKER) (test dmbm=404) CREATININE (BEAKER) (test 0.76 mg/dL 0.57-1.25 fvrf=737) GLUCOSE RANDOM (BEAKER) 100 mg/dL 70-105 (test krrh=971) CALCIUM (BEAKER) (test 7.3 mg/dL 8.4-10.2 tdcw=012) EGFR (BEAKER) (test 108 mL/min/1.73 sq m ESTIMATED GFR IS NOT cflc=9028) ACCURATE CREATININE CLEARANCE IN PREDICTING GLOMERULAR FILTRATION RATE. ESTIMATED GFR IS NOT APPLICABLE FOR DIALYSIS PATIENTS. Specimen slightly ictericCBC W/PLT COUNT & AUTO [id number] 06:53 :00 Test Item Value Reference Range Comments WHITE BLOOD CELL COUNT (BEAKER) (test pgyv=037) 3.5 K/ L 4.0-10.0 RED BLOOD CELL COUNT (BEAKER) (test qwzs=476) 1.83 M/ L 4.20-5.80 HEMOGLOBIN (BEAKER) (test etbi=064) 7.3 GM/DL 13.0-16.8 HEMATOCRIT (BEAKER) (test awme=999) 19.9 % 40.0-50.0 MEAN CORPUSCULAR VOLUME (BEAKER) (test zdbw=063) 109.0 fL 82.0-98.0 MEAN CORPUSCULAR HEMOGLOBIN (BEAKER) (test 39.9 pg 27.0-33.0 zlmu=587) MEAN CORPUSCULAR HEMOGLOBIN CONC (BEAKER) (test 36.6 GM/DL 32.0-36.0 dmuo=653) RED CELL DISTRIBUTION WIDTH (BEAKER) (test 14.3 % 10.3-14.2 dkrr=051) PLATELET COUNT (BEAKER) (test rype=358) 35 K/CU MM 150-430 MEAN PLATELET VOLUME (BEAKER) (test lzsw=230) 6.6 fL 6.5-10.5 NUCLEATED RED BLOOD CELLS (BEAKER) (test 0 /100 WBC 0-0 pacn=306) NEUTROPHILS RELATIVE PERCENT (BEAKER) (test 60 % uwrn=752) LYMPHOCYTES RELATIVE PERCENT (BEAKER) (test 18 % cpvm=993) MONOCYTES RELATIVE PERCENT (BEAKER) (test 17 % gprt=139) EOSINOPHILS RELATIVE PERCENT (BEAKER) (test 6 % dqsl=879) BASOPHILS RELATIVE PERCENT (BEAKER) (test 0 % evwc=620) NEUTROPHILS ABSOLUTE COUNT (BEAKER) (test 2.06 K/ L 1.80-8.00 ihbi=523) LYMPHOCYTES ABSOLUTE COUNT (BEAKER) (test 0.61 K/ L 1.48-4.50 iwmd=719) MONOCYTES ABSOLUTE COUNT (BEAKER) (test apsi=438) 0.58 K/ L 0.00-1.30 EOSINOPHILS ABSOLUTE COUNT (BEAKER) (test 0.19 K/ L 0.00-0.50 qqhs=908) BASOPHILS ABSOLUTE COUNT (BEAKER) (test vqcv=722) 0.01 K/ L 0.00-0.20 0.00PROTHROMBIN [id number] 06:39:00 Test Item Value Reference Range Comments PROTIME (BEAKER) (test mlxe=460) 30.6 seconds 11.7-14.7 INR (BEAKER) (test kcgi=244) 2.9 <=5.9 RECOMMENDED COUMADIN/WARFARIN INR THERAPY RANGESSTANDARD DOSE: 2.0 - 3.0 Includes: PROPHYLAXIS forvenous thrombosis, systemic embolization; TREATMENT for venous thrombosis and/or pulmonary embolus.HIGH RISK: Target INR is 2.5-3.5 for patients with mechanical heart valves.URINALYSIS W/ [id number] 16 :58:00 Test Item Value Reference Range Comments COLOR (BEAKER) (test tzqw=651) Yellow CLARITY (BEAKER) (test hoan=241) Clear SPECIFIC GRAVITY UA (BEAKER) (test 1.025 1.001-1.035 fieb=141) PH UA (BEAKER) (test tvfk=663) 7.0 5.0-8.0 PROTEIN UA (BEAKER) (test ngil=857) Negative Negative GLUCOSE UA (BEAKER) (test otdv=956) Negative Negative KETONES UA (BEAKER) (test nblk=387) Negative Negative BILIRUBIN UA (BEAKER) (test jfwb=910) Positive Negative BLOOD UA (BEAKER) (test qiuw=261) Negative Negative NITRITE UA (BEAKER) (test qetp=715) Negative Negative LEUKOCYTE ESTERASE UA (BEAKER) (test Negative Negative cgum=001) UROBILINOGEN UA (BEAKER) (test dxxj=515) 8.0 mg/dL 0.2-1.0 RBC UA (BEAKER) (test kjkz=674) 0 /HPF WBC UA (BEAKER) (test puht=508) 2 /HPF MUCUS (BEAKER) (test lxxh=7409) Rare HYALINE CASTS (BEAKER) (test crco=818) 3 /LPF SOURCE(BEAKER) (test jnzj=5193) Urine, Clean Catch [id number] 13:32:00 Test Item Value Reference Range Comments FERRITIN (BEAKER) (test vxyg=385) 116 ng/mL 5-275 Effective 09/13/2014: Reference Range ChangeNew: Male 5-275 Previous: Male 22-322 Female 5-275 Female 10-291HEPATITIS A ANTIBODY, [id number] 13:19:00 Test Item Value Reference Range Comments HEPATITIS A IGG ANTIBODY (BEAKER) (test cpae=5013) Reactive Nonreactive ALPHA FETOPROTEIN (AFP), TUMOR [id number] 13:17:00 Test Item Value Reference Range Comments ALPHA-FETOPROTEIN (BEAKER) (test djqz=4221) 4.5 ng/mL <10.0 Effective 09/13/2014: Reference Range ChangeNew: <10.0 Previous: 0.0- 8.0HEPATITIS C [id number] 13:17:00 Test Item Value Reference Range Comments HEPATITIS C ANTIBODY (BEAKER) (test rsol=047) Nonreactive Nonreactive BODY FLUID CELL COUNT WITH [id number] 13:03:00 Test Item Value Reference Range Comments APPEARANCE FLUID (BEAKER) (test kngr=652) Cloudy Clear COLOR FLUID (BEAKER) (test yevg=411) Yellow Colorless, Straw RBC FLUID (BEAKER) (test lyul=024) 1519 /cu mm <=1 ADJUSTED WBC FLUID (BEAKER) (test bchi=7187) 108 /cu mm <=5 LINING CELLS (BEAKER) (test mknz=4104) 14 /cu mm <=1 NEUTROPHILS FLUID (BEAKER) (test tqaw=2945) 11 % LYMPHS FLUID (BEAKER) (test nejm=749) 30 % MONO/MACROPHAGE FLUID (BEAKER) (test fsqv=172) 59 % EOSINOPHILS FLUID (BEAKER) (test ldor=406) 0 % BASO FLUID (BEAKER) (test ukqn=644) 0 % CONTAINER BODY FLUID (BEAKER) (test shjt=3301) EDTA Tube BASIC METABOLIC [id number] 12:56:00 Test Item Value Reference Range Comments SODIUM (BEAKER) (test 131 meq/L 136-145 uuwb=022) POTASSIUM (BEAKER) (test 4.0 meq/L 3.5-5.1 Specimen moderately gamm=246) hemolyzed CHLORIDE (BEAKER) (test 105 meq/L 98-107 yevh=008) CO2 (BEAKER) (test 18 meq/L 22-29 vqxo=918) BLOOD UREA NITROGEN 6 mg/dL 7-21 (BEAKER) (test ykeq=920) CREATININE (BEAKER) (test 0.72 mg/dL 0.57-1.25 Specimen moderately vfyw=507) hemolyzed GLUCOSE RANDOM (BEAKER) 103 mg/dL 70-105 (test plfy=548) CALCIUM (BEAKER) (test 7.4 mg/dL 8.4-10.2 yebw=347) EGFR (BEAKER) (test 115 mL/min/1.73 sq m ESTIMATED GFR IS NOT yqxf=2409) ACCURATE CREATININE CLEARANCE IN PREDICTING GLOMERULAR FILTRATION RATE. ESTIMATED GFR IS NOT APPLICABLE FOR DIALYSIS PATIENTS. Specimen moderately ictericIRON, TIBC, % SAT. (WITHOUT FERRITIN)2017-02-02 12:56 :00 Test Item Value Reference Range Comments IRON (BEAKER) (test npjz=035) 55 ug/dL 40-160 TOTAL IRON BINDING CAPACITY (BEAKER) (test 175 ug/dL 250-450 vrze=941) IRON % SATURATION (2) (BEAKER) (test sgfc=0495) 31 % 20-55 HEPATIC FUNCTION [id number] 12:50:00 Test Item Value Reference Range Comments TOTAL PROTEIN (BEAKER) (test 6.7 gm/dL 6.0-8.3 Specimen moderately hemolyzed wkxl=606) ALBUMIN (BEAKER) (test 2.0 g/dL 3.5-5.0 Specimen moderately hemolyzed wpmg=2528) BILIRUBIN TOTAL (BEAKER) (test 5.1 mg/dL 0.2-1.2 Specimen moderately hemolyzed oguh=439) BILIRUBIN DIRECT (BEAKER) 2.8 mg/dL 0.1-0.5 Specimen moderately hemolyzed (test yxyt=803) ALKALINE PHOSPHATASE (BEAKER) 99 U/L 40-150 (test yokx=769) AST (SGOT) (BEAKER) (test 62 U/L 5-34 Specimen moderately hemolyzed jkkv=325) ALT (SGPT) (BEAKER) (test 15 U/L 6-55 Specimen moderately nsah=435) hemolyzed Specimen moderately ictericCBC W/PLT COUNT & AUTO [id number] 12: 47:00 Test Item Value Reference Range Comments WHITE BLOOD CELL COUNT (BEAKER) (test zalg=857) 3.3 K/ L 4.0-10.0 RED BLOOD CELL COUNT (BEAKER) (test ppkf=256) 2.08 M/ L 4.20-5.80 HEMOGLOBIN (BEAKER) (test vfbi=616) 7.8 GM/DL 13.0-16.8 HEMATOCRIT (BEAKER) (test rktz=131) 22.9 % 40.0-50.0 MEAN CORPUSCULAR VOLUME (BEAKER) (test dskr=932) 110.0 fL 82.0-98.0 MEAN CORPUSCULAR HEMOGLOBIN (BEAKER) (test 37.4 pg 27.0-33.0 fsci=097) MEAN CORPUSCULAR HEMOGLOBIN CONC (BEAKER) (test 34.1 GM/DL 32.0-36.0 agju=994) RED CELL DISTRIBUTION WIDTH (BEAKER) (test 15.0 % 10.3-14.2 rdek=372) PLATELET COUNT (BEAKER) (test lhgs=714) 48 K/CU MM 150-430 MEAN PLATELET VOLUME (BEAKER) (test thzo=005) 6.6 fL 6.5-10.5 NUCLEATED RED BLOOD CELLS (BEAKER) (test 0 /100 WBC 0-0 evqm=023) NEUTROPHILS RELATIVE PERCENT (BEAKER) (test 62 % ojdh=020) LYMPHOCYTES RELATIVE PERCENT (BEAKER) (test 17 % etfw=233) MONOCYTES RELATIVE PERCENT (BEAKER) (test 15 % iijv=039) EOSINOPHILS RELATIVE PERCENT (BEAKER) (test 6 % mvwo=611) BASOPHILS RELATIVE PERCENT (BEAKER) (test 0 % jziy=733) NEUTROPHILS ABSOLUTE COUNT (BEAKER) (test 2.03 K/ L 1.80-8.00 kech=877) LYMPHOCYTES ABSOLUTE COUNT (BEAKER) (test 0.57 K/ L 1.48-4.50 oqgn=005) MONOCYTES ABSOLUTE COUNT (BEAKER) (test sapk=328) 0.48 K/ L 0.00-1.30 EOSINOPHILS ABSOLUTE COUNT (BEAKER) (test 0.19 K/ L 0.00-0.50 lbwv=885) BASOPHILS ABSOLUTE COUNT (BEAKER) (test dkxm=190) 0.01 K/ L 0.00-0.20 0.00PROTHROMBIN [id number] 12:42:00 Test Item Value Reference Range Comments PROTIME (BEAKER) (test bbma=105) 27.0 seconds 11.7-14.7 INR (BEAKER) (test owqi=187) 2.5 <=5.9 RECOMMENDED COUMADIN/WARFARIN INR THERAPY RANGESSTANDARD DOSE: 2.0 - 3.0 Includes: PROPHYLAXIS forvenous thrombosis, systemic embolization; TREATMENT for venous thrombosis and/or pulmonary embolus.HIGH RISK: Target INR is 2.5-3.5 for patients with mechanical heart valves.ALBUMIN, BODY [id number] 11:46:00 Test Item Value Reference Range Comments ALBUMIN FLUID (BEAKER) (test wgvl=342) 0.5 gm/dL Reference Range: No Normals Assay performance has not been validated for this type of specimen.PROTEIN, BODY [id number] 11:42:00 Test Item Value Reference Range Comments PROTEIN FLUID (BEAKER) (test eloz=906) 1.3 g/dL Absence of reference range indicates that normals have not been defined.Assay performance has not been validated for this type of specimen.
--- OUTSIDE RECORDS SUMMARY | 2018-10-28 16:42 | XMS REPORT ---
[...] Status Dosage System Date Date Ondansetron HCl [facility] 66961707122 4 MG Orally Active 1 tab every 8 hours as needed for Nausea and vomiting Hydrocortisone ND 57380500510 20 MG Orally AM Active 1 tablet Once a day with food or milk Magnesium Oxide ND 67412148131 400 MG Orally Active 1 tablet BID as needed Rifaximin [facility] [address]-91 550 MG Orally Active 1 tablet Twice a day Pantoprazole ND 42634223547 40 MG Orally Active 1 tablet Sodium Once a day Sodium Chloride ND 23593724570 1 GM Orally TID Active 2 tablets Lactulose ND 35044688450 10 GM/15ML Active 15 ml Orally TID Ondansetron HCl [facility] 12015764369 4 MG Active 1 TAB EVERY 8 HOURS NEEDED FOR NAUSEA AND VOMITING ORALLY 10 DAYS Citalopram [facility] 21136463929 40 MG Orally Active take one Hydrobromide once a day daily Hydrocortisone [facility] 15598885755 10 MG Orally PM Active 1 tablet Once a day with food or milk NuFera [facility] 17162313731 - Orally once a Active 1 tab day Citalopram [facility] 00178792667 10 MG Active TAKE ONE Hydrobromide DAILY Ursodiol [facility] 54680072939 300 MG Orally Active not defined Midodrine HCl [facility] 23719491445 10 MG Orally Active 1 tablet Three times a day Results No Known Results Summary Purpose eClinicalWorks Submission
--- OUTSIDE RECORDS SUMMARY | 2018-10-28 16:42 | XMS REPORT ---
[...] Status Dosage System Date Date Midodrine HCl [facility] [place] 76977887800 10 MG Orally Active 1 tablet Three times a day Pantoprazole [facility] [place] 2] 26521252098 40 MG Orally Active 1 tablet Sodium Once a day Sodium Chloride ND 45749708826 1 GM Orally TID Active 2 tablets Ondansetron HCl ND 85242569051 4 MG Orally Active 1 tab every 8 hours as needed for Nausea and vomiting Hydrocortisone ND 23790635340 20 MG Orally AM Active 1 tablet Once a day with food or milk Ursodiol ND 85524609294 300 MG Orally Active not defined Lactulose ND 85370823411 10 GM/15ML Active 15 ml Orally TID Citalopram [facility] [place] 2] 05514246709 10 MG Active TAKE ONE Hydrobromide DAILY Rifaximin [facility] [place]NOTE 2] [address]-50 550 MG Orally Active 1 tablet Twice a day Ondansetron HCl [facility] [place]NOTE 2] 37209319336 4 MG Active 1 TAB EVERY 8 HOURS NEEDED FOR NAUSEA AND VOMITING ORALLY 10 DAYS Magnesium Oxide [facility] [place]NOTE 2] 16553126294 400 MG Orally Active 1 tablet BID as needed NuFera [facility] [place]NOTE 2] 57616000373 - Orally once a Active 1 tab day Hydrocortisone [facility] [place] 2] 24457742658 10 MG Orally PM Active 1 tablet Once a day with food or milk Results No Known Results Summary Purpose eClinicalWorks Submission
--- NOTE | 2018-10-28 17:09 | RAD REPORT ---
EXAM DESCRIPTION: CT - Head Brain Wo Cont - 10/28/2018 4:55 pm CLINICAL HISTORY: Transient alteration of awareness COMPARISON: CT study October 02, 2018 TECHNIQUE: Axial 5 mm thick images of the head were obtained without IV contrast. All CT scans are performed using dose optimization technique as appropriate and may include automated exposure control or mA/KV adjustment according to patient size. FINDINGS: No intracranial hemorrhage, mass, edema or shift of mid-line structures. No acute infarcti on changes seen. Prominent atrophy and chronic ischemic changes are present very advanced for the pat ient's age. Ventricles are in proportion. Arterial and physiologic calcifications are present. The in tracranial findings are not substantially different from the prior study. Mastoid air cells and visualized portions of the paranasal sinuses are clear. No acute bony findings. IMPRESSION: No acute intracranial finding identifiable. Advanced for age atrophy and chronic ischemic change similar to October 02 imaging.
[2018-10-28] MEDS ORDERED: NA CHLORIDE 0.9% 1,000 ML ONE (17:18)
[2018-10-28] MEDS ORDERED: THIAMINE 200 MG/2 ML INJ ONE (17:18)
[2018-10-28 17:19] LABS: Absolute Lymphocytes (CBC) 0.6 K/uL (0.7-4.9); Absolute Monocytes 0.6 K/uL (0.1-1.3); Absolute Neutrophil 3.4 K/uL (1.8-8.0); Basophils % 0.2 % (0-1.3); Lymphocytes % 12.6 % (15.3-44.8); MPV 7.1 fL (7.6-11.3); Monocytes % 12.5 % (3.3-12.3); Protime INR 1.52; RBC Red Blood Cell Count 2.99 M/uL (4.33-5.43)
--- NOTE | 2018-10-28 17:20 | EKG ---
Test Date: 2018-10-28 Test Time: 16:44:16 [employer]: GERMAIN MEASUREMENT RESULTS: Intervals: Rate: 87 ID: [id number] QRSD: 84 QT: 396 QTc: 476 [place]: P: 60 ID: [id number] QRS: 30 T: 42 INTERPRETIVE STATEMENTS: Normal sinus rhythm Normal ECG Compared to ECG 10/08/2018 15:35:53 Left ventricular hypertrophy no longer present Myocardial infarct finding no longer present Electronically Signed On 10-28-18 17:20:10 TEST BAKER by Ghanshyam Young
[2018-10-28] MEDS ORDERED: PANTOPRAZOLE 40 MG INJ ONE (17:27)
[2018-10-28] MEDS ORDERED: LACTULOSE 20 GM/30 ML UCUP ONE ×2 (17:27→18:30)
[2018-10-28 17:37] LABS: ALT/SGPT 16 U/L (12-78); AST/SGOT 22 U/L (15-37); Albumin 2.7 g/dL (3.4-5.0); Alkaline Phosphatase 173 U/L (45-117); BUN Blood Urea Nitrogen 57 mg/dL (7-18); Bicarbonate 22 mmol/L (21-32); Bilirubin Direct 1.1 mg/dL (0-0.2); Bilirubin Total 2.4 mg/dL (0.2-1.0); Glucose Level 103 mg/dL (74-106); Lipase 364 U/L (73-393); Magnesium 2.5 mg/dL (1.8-2.4); NT PRO-BNP 202 pg/mL (<125); Sodium Level 132 mmol/L (136-145); Troponin (Emerg Dept Use Only) < 0.02 ng/mL (0.0-0.045)
--- NOTE | 2018-10-28 17:56 | RAD REPORT ---
EXAM DESCRIPTION: RAD - Chest Single View - 10/28/2018 5:47 pm CLINICAL HISTORY: COUGH Chest pain. COMPARISON: Chest Single View dated 10/02/2018; Chest Single View dated 09/22/2018; Chest Single View dated 08/24/2018; Chest Single View dated 08/13/2018 FINDINGS: Portable technique limits examination quality. The lungs are underinflated but grossly clear. The heart is normal in size. Old traumatic changes inv olving the clavicles noted. IMPRESSION: Underinflated lungs.
[2018-10-28 17:59] LABS: Blood Morphology Comment NOTED (NOT SEEN); Burr Cells FEW; Platelet Estimate DECR; Urine White Blood Cell Casts OK
--- NOTE | 2018-10-28 18:13 | EDPHYS ---
Physician Documentation [facility] Name: Abhishek Davis Age: 53 yrs Sex: Male : 1965 Arrival Date: 10/28/2018 Time: 16:31 Bed 6 Private MD: ED Physician Stanislaw Stratton HPI: 10/28 17:16 This 53 yrs old Male presents to ER via EMS with complaints of Altered Mental marquise Status. 17:16 The patient presents with confusion, decreased mental status, decreased responsiveness, marquise trouble concentrating. Onset: The symptoms/episode began/occurred 2 day(s) ago. Possible causes: hepatic encepholapathy. Associated signs and symptoms: The patient has no apparent associated signs or symptoms. Patient's baseline: Neuro: orientated to person, Motor: no deficits, Ambulation: unable to walk, Speech: slow. The patient has experienced similar episodes in the past, multiple times. Historical: - Allergies: 16:35 No Known Allergies; la1 - Home Meds: 16:35 Xifaxan 550 mg Oral tab 1 tab 2 times per day [Active]; ursodiol 300 mg Oral cap 1 cap la1 2 times per day [Active]; midodrine 5 mg Oral tab twice a day [Active]; mag oxide 400 mg daily [Active]; Lasix 40 mg Oral tab 1 tab once daily [Active]; Lactulose Oral 30 mL 3 times per day [Active]; citalopram 10 mg tab 1 tab once daily [Active]; Centrum Oral daily [Active]; - PMHx: 16:35 Anemia; Cirrhosis; renal insufficiency; Umbilical hernia; la1 - Immunization history:: Adult Immunizations unknown. - Social history:: Smoking status: unknown. - Ebola Screening: : No symptoms or risks identified at this time. - Family history:: not pertinent. ROS: 17:16 Eyes: Negative for injury, pain, redness, and discharge, ENT: Negative for injury, marquise pain, and discharge, Neck: Negative for injury, pain, and swelling, Cardiovascular: Negative for chest pain, palpitations, and edema, Respiratory: Negative for shortness of breath, cough, wheezing, and pleuritic chest pain, Abdomen/GI: Negative for abdominal pain, nausea, vomiting, diarrhea, and constipation, Back: Negative for injury and pain, : Negative for injury, bleeding, discharge, and swelling, MS/Extremity: Negative for injury and deformity, Psych: Negative for depression, anxiety, suicide ideation, homicidal ideation, and hallucinations, Allergy/Immunology: Negative for hives, rash, and allergies, Endocrine: Negative for neck swelling, polydipsia, polyuria, polyphagia, and marked weight changes, Hematologic/Lymphatic: Negative for swollen nodes, abnormal bleeding, and unusual bruising. 17:16 Constitutional: Positive for malaise. 17:16 Skin: Positive for pallor. 17:16 Neuro: Positive for altered mental status, dizziness, weakness. Exam: 17:16 Head/Face: Normocephalic, atraumatic. Eyes: Pupils equal round and reactive to light, marquise extra-ocular motions intact. Lids and lashes normal. Conjunctiva and sclera are non-icteric and not injected. Cornea within normal limits. Periorbital areas with no swelling, redness, or edema. Neck: Trachea midline, no thyromegaly or masses palpated, and no cervical lymphadenopathy. Supple, full range of motion without nuchal rigidity, or vertebral point tenderness. No Meningismus. Chest/axilla: Normal chest wall appearance and motion. Nontender with no deformity. No lesions are appreciated. Cardiovascular: Regular rate and rhythm with a normal S1 and S2. No gallops, murmurs, or rubs. Normal PMI, no JVD. No pulse deficits. Respiratory: Lungs have equal breath sounds bilaterally, clear to auscultation and percussion. No rales, rhonchi or wheezes noted. No increased work of breathing, no retractions or nasal flaring. Back: No spinal tenderness. No costovertebral tenderness. Full range of motion. Male : Normal genitalia with no discharge or lesions. Skin: Warm, dry with normal turgor. Normal color with no rashes, no lesions, and no evidence of cellulitis. MS/ Extremity: Pulses equal, no cyanosis. Neurovascular intact. Full, normal range of motion. Psych: Awake, alert, with orientation to person, place and time. Behavior, mood, and affect are within normal limits. 17:16 Constitutional: The patient appears in obvious distress, moderately distressed. 17:16 Abdomen/GI: Inspection: distension, Bowel sounds: normal, Palpation: abdomen is soft and non-tender, Rectal exam: is unremarkable, rectal tone normal, Stool: guaiac negative, swelling, is not appreciated, tenderness, is not appreciated, Liver: no appreciated palpable abnormalities, Hernia: noted in the umbilical area. Vital Signs: 16:35 BP 99 / 76; Pulse 89; Resp 16; Temp 97.8(TE); Pulse Ox 98% on R/A; la1 17:42 BP 103 / 74; Pulse 81; Resp 16; Pulse Ox 98% on R/A; la1 18:28 BP 93 / 74; Pulse 81; Resp 16; Pulse Ox 98% on R/A; la1 20:02 BP 98 / 78; Pulse 99; Resp 20; Temp 98.3(O); Pulse Ox 99% on R/A; Pain 0/10; ak1 MDM: 16:32 Patient medically screened. [facility] 17:22 Data reviewed: vital signs, nurses notes, lab test result(s), EKG, radiologic studies, [facility] CT scan, plain films. 10/28 16:34 Order name: Basic Metabolic Panel; Complete Time: 17:53 [facility] 10/28 16:34 Order name: CBC with Diff; Complete Time: 18:06 [facility] 10/28 16:34 Order name: LFT's; Complete Time: 17:53 [facility] 10/28 16:34 Order name: Magnesium; Complete Time: 17:53 [facility] 10/28 16:34 Order name: NT PRO-BNP; Complete Time: 17:53 [facility] 10/28 16:34 Order name: PT-INR; Complete Time: 17:53 [facility] 10/28 16:34 Order name: Troponin (emerg Dept Use Only); Complete Time: 17:53 [facility] 10/28 16:34 Order name: Lipase; Complete Time: 17:53 [facility] 10/28 16:34 Order name: Urine Culture [facility] 10/28 16:34 Order name: UDS; Complete Time: 18:44 [facility] 10/28 16:34 Order name: AMMONIA; Complete Time: 17:53 [facility] 10/28 17:15 Order name: Type And Screen [facility] 10/28 17:16 Order name: Type and Screen; Complete Time: 18:44 [facility] 10/28 17:29 Order name: CBC Smear Scan; Complete Time: 18:06 [facility] 10/28 16:34 Order name: XRAY Chest (1 view); Complete Time: 18:06 [facility] 10/28 16:34 Order name: EKG; Complete Time: 16:35 [facility] 10/28 16:34 Order name: Cardiac monitoring; Complete Time: 17:43 [facility] 10/28 16:34 Order name: EKG - Nurse/Tech; Complete Time: 17:43 [facility] 10/28 16:34 Order name: IV Saline Lock; Complete Time: 17:43 [facility] 10/28 16:34 Order name: Labs collected and sent; Complete Time: 17:43 [facility] 10/28 16:34 Order name: O2 Per Protocol; Complete Time: 17:43 [facility] 10/28 16:34 Order name: CT Head Brain wo Cont; Complete Time: 17:16 [facility] 10/28 18:40 Order name: Urine Dipstick--Ancillary (enter results) 10/28 16:34 Order name: O2 Sat Monitoring; Complete Time: 17:43 [facility] 10/28 16:34 Order name: Urine Dipstick-Ancillary (obtain specimen); Complete Time: 18:18 [facility] 10/28 16:34 Order name: Blood Glucose Level; Complete Time: 17:28 [facility] 10/28 17:23 Order name: IV Saline Lock - Large Bore; Complete Time: 17:28 [facility] Administered Medications: 17:16 Drug: NS 0.9% 1000 ml Route: IV; Rate: 75 ml/hr; Site: right antecubital; la1 18:17 Follow up: IV Status: Infusion continued upon admission la1 19:53 Follow up: IV Status: Infusion continued upon admission ak1 17:16 Drug: Thiamine 100 mg Route: IV; Rate: bolus; Site: right antecubital; la1 19:52 Follow up: IV Status: Completed infusion ak1 17:29 Drug: ProTONIX 40 mg Route: IVP; Site: right antecubital; la1 18:00 Follow up: Response: No adverse reaction la1 17:29 Drug: Lactulose 30 grams Volume: 45 ml; Route: PO; la1 18:17 Follow up: Response: No adverse reaction la1 17:30 Drug: NS 0.9% 500 ml Route: IV; Rate: bolus; Site: right antecubital; la1 18:17 Follow up: IV Status: Completed infusion la1 18:27 Drug: Lactulose 30 grams Volume: 45 ml; Route: PO; la1 18:27 Follow up: Response: No adverse reaction la1 20:01 Drug: Zofran 4 mg Route: IVP; Site: right antecubital; ak1 20:01 Follow up: Response: No adverse reaction ak1 Disposition: 10/28/18 18:12 Hospitalization ordered by Apurva Payne for Inpatient Admission. Preliminary diagnosis are Altered mental status, unspecified, Anemia, unspecified, Other acute kidney failure, Encephalopathy, unspecified - hepatic, Unspecified kidney failure - insufficency. - Bed requested for Telemetry/MedSurg (Inpatient). - Status is Inpatient Admission. ak1 - Condition is Fair. - Problem is new. - Symptoms have improved. UTI on Admission? No Signatures: Dispatcher [employer] EDMS Gena Zee RN RN mw Anderson, Corey, MD MD cha Attema, Lee RN RN [email or web address] Jenna Leahy RN RN ak1 Corrections: (The following items were deleted from the chart) 18:45 18:12 Hospitalization Ordered by Apurva Payne MD for Inpatient Admission. Preliminary marquise diagnosis is Altered mental status, unspecified; Anemia, unspecified; Other acute kidney failure; Encephalopathy, unspecified - hepatic. Bed requested for Telemetry/MedSurg (Inpatient). Status is Inpatient Admission. Condition is Fair. Problem is new. Symptoms have improved. UTI on Admission? No. marquise 20:02 18:45 10/28/2018 18:12 Hospitalization Ordered by Apurva Payne MD for Inpatient Admission. Preliminary diagnosis is Altered mental status, unspecified; Anemia, unspecified; Other acute kidney failure; Encephalopathy, unspecified - hepatic; Unspecified kidney failure - insufficency. Bed requested for Telemetry/MedSurg (Inpatient). Status is Inpatient Admission. Condition is Fair. Problem is new. Symptoms have improved. UTI on Admission? No. marquise 20:45 20:02 10/28/2018 18:12 Hospitalization Ordered by Apurva Payne MD for Inpatient ak1 Admission. Preliminary diagnosis is Altered mental status, unspecified; Anemia, unspecified; Other acute kidney failure; Encephalopathy, unspecified - hepatic; Unspecified kidney failure - insufficency. Bed requested for Telemetry/MedSurg (Inpatient). Status is Inpatient Admission. Condition is Fair. Problem is new. Symptoms have improved. UTI on Admission? No. mw
--- NOTE | 2018-10-28 18:13 | ER ---
Nurse's Notes [facility] Name: Abhishek Davis Age: 53 yrs Sex: Male : 1965 Arrival Date: 10/28/2018 Time: 16:31 Bed 6 Private MD: Diagnosis: Altered mental status, unspecified;Anemia, unspecified;Other acute kidney failure;Encephalopathy, unspecified-hepatic;Unspecified kidney failure-insufficency Presentation: 10/28 16:32 Presenting complaint: EMS states: Family states pt has been altered since last night la1 and has had previous episodes with high ammonia levels. Pt alert, drowsy, oriented x1 to name. Transition of care: patient was not received from another setting of care. Onset of symptoms was October 28, 2018. Risk Assessment: Do you want to hurt yourself or someone else? Patient reports no desire to harm self or others. Initial Sepsis Screen: Does the patient meet any 2 criteria? No. Patient's initial sepsis screen is negative. Does the patient have a suspected source of infection? No. Patient's initial sepsis screen is negative. Care prior to arrival: None. 16:32 Method Of Arrival: EMS: [facility] la1 16:32 Acuity: KACEY 2 la1 Historical: - Allergies: 16:35 No Known Allergies; la1 - Home Meds: 16:35 Xifaxan 550 mg Oral tab 1 tab 2 times per day [Active]; ursodiol 300 mg Oral cap 1 cap la1 2 times per day [Active]; midodrine 5 mg Oral tab twice a day [Active]; mag oxide 400 mg daily [Active]; Lasix 40 mg Oral tab 1 tab once daily [Active]; Lactulose Oral 30 mL 3 times per day [Active]; citalopram 10 mg tab 1 tab once daily [Active]; Centrum Oral daily [Active]; - PMHx: 16:35 Anemia; Cirrhosis; renal insufficiency; Umbilical hernia; la1 - Immunization history:: Adult Immunizations unknown. - Social history:: Smoking status: unknown. - Ebola Screening: : No symptoms or risks identified at this time. - Family history:: not pertinent. Screenin:37 Abuse screen: Denies threats or abuse. Nutritional screening: No deficits noted. la1 Tuberculosis screening: No symptoms or risk factors identified. Fall Risk No fall in past 12 months (0 pts). Secondary diagnosis (15 points) IV access (20 points). Ambulatory Aid- None/Bed Rest/Nurse Assist (0 pts). Gait- Weak (10 pts.). Mental Status- Overestimates/Forgets Limitations (15 pts.). Total Ty Fall Scale indicates High Risk Score (45 or more points). Side Rails Up X 2 Placed Close to Nursing Station. Assessment: 16:35 General: Appears ill, Behavior is cooperative. Pain: Denies pain. Neuro: Level of la1 Consciousness is awake, confused, Oriented to person. Cardiovascular: Heart tones S1 S2 present Capillary refill < 3 seconds Patient's skin is warm and dry. Respiratory: Airway is patent Trachea midline Respiratory effort is even, unlabored, Respiratory pattern is regular, symmetrical, Breath sounds are clear bilaterally. GI: Abdomen is round Large umbilical hernia noted Bowel sounds present X 4 quads. Abd is soft and non tender X 4 quads. : No signs and/or symptoms were reported regarding the genitourinary system. 20:02 Reassessment: Patient appears in no apparent distress at this time. No changes from ak1 previously documented assessment. Patient and/or family updated on plan of care and expected duration. Pain level reassessed. Patient is alert, oriented x 3, equal unlabored respirations, skin warm/dry/pink. Vital Signs: 16:35 BP 99 / 76; Pulse 89; Resp 16; Temp 97.8(TE); Pulse Ox 98% on R/A; la1 17:42 BP 103 / 74; Pulse 81; Resp 16; Pulse Ox 98% on R/A; la1 18:28 BP 93 / 74; Pulse 81; Resp 16; Pulse Ox 98% on R/A; la1 20:02 BP 98 / 78; Pulse 99; Resp 20; Temp 98.3(O); Pulse Ox 99% on R/A; Pain 0/10; ak1 ED Course: 16:31 Patient arrived in ED. la1 16:31 Stan Kaur RN is Primary Nurse. la1 16:32 Stanislaw Stratton MD is Attending Physician. [facility] 16:33 Triage completed. la1 16:35 Arm band placed on right wrist. la1 16:37 Bed in low position. Call light in reach. child monitor on. Pulse ox on. NIBP on. la1 16:49 EKG done, by heating technician. reviewed by Stanislaw Stratton MD. sm3 16:54 CT completed. Patient tolerated procedure well. Patient moved back from CT. nj 16:55 CT Head Brain wo Cont In Process Unspecified. EDMS 17:48 XRAY Chest (1 view) In Process Unspecified. EDMS 18:11 Apurva Payne MD is Hospitalizing Provider. marquise 18:17 Straight cath inserted, using sterile technique, Specimen obtained. Returned adolfo la1 urine. Patient tolerated well. Maintain EMS IV. Dressing intact. Good blood return noted. Site clean \T\ dry. Gauge \T\ site: 20g RAC. 19:51 No provider procedures requiring assistance completed. Patient admitted, IV remains in ak1 place. 20:34 Cleaned of incontinence. Linen changed. ak1 Administered Medications: 17:16 Drug: NS 0.9% 1000 ml Route: IV; Rate: 75 ml/hr; Site: right antecubital; la1 18:17 Follow up: IV Status: Infusion continued upon admission la1 19:53 Follow up: IV Status: Infusion continued upon admission ak1 17:16 Drug: Thiamine 100 mg Route: IV; Rate: bolus; Site: right antecubital; la1 19:52 Follow up: IV Status: Completed infusion ak1 17:29 Drug: ProTONIX 40 mg Route: IVP; Site: right antecubital; la1 18:00 Follow up: Response: No adverse reaction la1 17:29 Drug: Lactulose 30 grams Volume: 45 ml; Route: PO; la1 18:17 Follow up: Response: No adverse reaction la1 17:30 Drug: NS 0.9% 500 ml Route: IV; Rate: bolus; Site: right antecubital; la1 18:17 Follow up: IV Status: Completed infusion la1 18:27 Drug: Lactulose 30 grams Volume: 45 ml; Route: PO; la1 18:27 Follow up: Response: No adverse reaction la1 20:01 Drug: Zofran 4 mg Route: IVP; Site: right antecubital; ak1 20:01 Follow up: Response: No adverse reaction ak1 Outcome: 18:12 Decision to Hospitalize by Provider. marquise 19:52 Condition: stable ak1 19:52 Instructed on the need for admit. 20:09 Admitted to Tele accompanied by tech, family with patient, via stretcher, room 203, ak1 with chart, Report called to Jen 20:45 Patient left the ED. ak1 Signatures: Dispatcher [employer] Stanislaw Curry MD MD cha Attema, Lee RN RN [email or web address] Adolfo Leahy, RN RN ak1 Patrick, Alexey Ordonez, Katlyn [facility]
[2018-10-28 18:35] LABS: Barbiturates NEGATIVE (NEGATIVE); Benzodiazepines NEGATIVE (NEGATIVE); Cocaine NEGATIVE (NEGATIVE); METHAMPHETAM NEGATIVE (NEGATIVE); Methadone NEGATIVE (NEGATIVE); Opiates NEGATIVE (NEGATIVE); Phencyclidine NEGATIVE (NEGATIVE); THC Cannibis NEGATIVE (NEGATIVE)
[2018-10-28] MEDS ORDERED: ONDANSETRON 4 MG/2 ML VIAL ONE (20:07)
[2018-10-28 20:27] LABS: Urine Blood NEGATIVE (NEG); Urine Glucose NEGATIVE (NEG); Urine Protein NEGATIVE (NEG)
[2018-10-28] MEDS ORDERED: ONDANSETRON 4 MG/2 ML VIAL IV PRN (20:28)
[2018-10-28] MEDS: Rifaximin 550 MG Tab PO SCH (21:00)
--- NOTE | 2018-10-28 21:08 | P.HP ---
Certification for Inpatient Patient admitted to: Inpatient With expected LOS: >2 Midnights Practitioner: I am a practitioner with admitting privileges, knowledge of patient current condition, hospital course, and medical plan of care. Services: Services provided to patient in accordance with Admission requirements found in Title 42 Section 412.3 of the Code of Federal Regulations Patient History Date of Service: 10/28/18 Reason for admission: hepatic encephalopathy History of Present Illness: Mr Davis is a 53 years old male with history of CKD, ESLD on a transplant list, requiring recurrent paracentesis procedures, last one was 6 days ago. He came to ED because he has been more confused and lethargic since last night. He was not eating or drinking water today. Last bowel movement was 2 days ago. No history of fever or chills. At my encounter, the patient was alert, but not able to follow commands. Lab work remarkable for normal WBC count, CMP abnormal , remarkable for ammonia level 161. BP on the lower side 99/76. Allergies No Known Drug Allergies Allergy (Verified 07/06/18 10:35) Unknown Home medications list reviewed: Yes Home Medications: Citalopram [Celexa*] 40 mg PO DAILY 10/09/18 Lactulose [Cephulac*] 30 mg PO TID 10/09/18 Midodrine HCl 1 tab PO BID 10/09/18 Multivit,Ther Iron,Ca,FA & Min [Centrum Tablet*] 1 tab PO DAILY 10/09/18 Rifaximin [Xifaxan] 1 tab PO BID 10/09/18 Ursodiol 1 cap PO BID 10/09/18 Ensure High Protein 237 ml PO BID #60 can 10/10/18 Pantoprazole [Protonix Tab] 40 mg PO DAILY #30 tab 10/10/18 - Past Medical/Surgical History Diabetic: No -: Chronic kidney disease, stage II -: Chronic alcoholic liver cirrhosis -: Ascites with multiple paracentesis in the past -: Chronic hyponatremia -: Anemia of chronic disease -: GERD -: left wrist sx to remove cyst -: hernia repair -: sx on left lower leg Psychosocial/ Personal History: Patient is - Family History Mother -: GI disease, Liver disease Notes: mother because of cirrhosis Father -: Diabetes - Social History Smoking Status: Never smoker Alcohol use: No CD- Drugs: No Caffeine use: No Place of Residence: Home Review of Systems 10-point ROS is otherwise unremarkable Physical Examination - Vital Signs Temperature: 98.3 F Blood Pressure: 98/78 Pulse: 99 Respirations: 20 - Physical Exam General: Alert, In no apparent distress, Other (obtunded) HEENT: Atraumatic, PERRLA, Mucous membr. moist/pink, Sclerae nonicteric Neck: Supple, 2+ carotid pulse no bruit, No LAD, Without JVD or thyroid abnormality Respiratory: Clear to auscultation bilaterally, Normal air movement Cardiovascular: Regular rate/rhythm, Normal S1 S2 Gastrointestinal: Normal bowel sounds, Tenderness (mild tenderness to palpation) Musculoskeletal: No tenderness Integumentary: No rashes Neurological: Normal strength at 5/5 x4 extr, Normal tone, Sensation intact Lymphatics: No axilla or inguinal lymphadenopathy - Studies Laboratory Data (last 24 hrs) 10/28/18 17:00: PT 18.0 H, INR 1.52 10/28/18 17:00: WBC 4.8, Hgb 9.7 L, Hct 28.0 L, Plt Count 72 L 10/28/18 17:00: Sodium 132 L, Potassium 5.0, BUN 57 H, Creatinine 2.23 H, Glucose 103, Magnesium 2.5 H, Total Bilirubin 2.4 H, AST 22, ALT 16, Alkaline Phosphatase 173 H, Lipase 364 Assessment and Plan - Problems (Diagnosis) (1) Hepatic encephalopathy Onset Date: 12/11/17 Current Visit: No Status: Acute (2) Weakness generalized Onset Date: 12/11/17 Current Visit: No Status: Acute (3) Chronic renal disease Onset Date: 12/11/17 Current Visit: No Status: Chronic Qualifiers: Chronic kidney disease stage: stage 3 (moderate) Qualified Code(s): N18.3 - Chronic kidney disease, stage 3 (moderate) (4) Cirrhosis of liver Onset Date: 03/23/15 Current Visit: No Status: Chronic - Plan The patient was admitted to the hospital due to hepatic encephalopathy. possible due to constipation. Will resume lactulose at higher dose, also continue Rifaximin. Will evaluate clinical progress and ammonia level in AM. - Advance Directives Does patient have a Living Will: No Does patient have a Durable POA for Healthcare: No - Code Status/Comfort Care Code Status Assessed: Yes Code Status: Full Code
[2018-10-28 21:19] VITALS: BMI 18.8
[2018-10-28] MEDS: LACTULOSE 20 GM/30 ML UCUP PO SCH (21:33)
[2018-10-28] MEDS: NA CHLORIDE 0.9% 1,000 ML IV SCH (21:33)
[2018-10-29] MEDS: NA CHLORIDE 0.9% 1,000 ML IV SCH ×2 (04:48→16:28)
[2018-10-29 05:12] LABS: Urine Appearance CLEAR; Urine Blood 2+ (NEG); Urine Color DK YELLOW; Urine Glucose NEGATIVE (NEG); Urine Protein NEGATIVE (NEG); Urine Specific Gravity 1.025 (1.005-1.030); Urine pH 5.5 (5.0-7.0)
[2018-10-29 05:25] LABS: Urine Bilirubin 1+ (NEG); Urine Microscopic Reflex ORDER UMIC
[2018-10-29 05:28] LABS: Urine Culture Reflex Order NOT NEEDED
[2018-10-29 05:29] LABS: Urine Bacteria >50 /HPF (NONE SEEN)
[2018-10-29 06:12] LABS: Absolute Lymphocytes (CBC) 0.6 K/uL (0.7-4.9); Absolute Monocytes 0.7 K/uL (0.1-1.3); Absolute Neutrophil 3.1 K/uL (1.8-8.0); Basophils % 0.4 % (0-1.3); Eosinophils % 4.8 % (0-4.4); Hematocrit 26.3 % (39.6-49.0); Lymphocytes % 13.2 % (15.3-44.8); MPV 7.8 fL (7.6-11.3); Monocytes % 14.6 % (3.3-12.3); RBC Red Blood Cell Count 2.82 M/uL (4.33-5.43)
[2018-10-29 06:29] LABS: Albumin 2.6 g/dL (3.4-5.0); Bilirubin Total 2.1 mg/dL (0.2-1.0); Potassium 4.7 mmol/L (3.5-5.1); Protein, Total 5.7 g/dL (6.4-8.2)
[2018-10-29] MEDS ORDERED: INFLUENZA VACCINE (for 3y+) 0.5 ML DOSE IMVAC ONE (08:00)
[2018-10-29] MEDS: LACTULOSE 20 GM/30 ML UCUP PO SCH ×3 (09:33→16:51)
[2018-10-29] MEDS: Rifaximin 550 MG Tab PO SCH (10:43)
[2018-10-29 12:19] VITALS: O2SAT 97
[2018-10-29 13:01] VITALS: BP 108/64; TEMP 99.2
--- NOTE | 2018-10-29 17:00 | P.SSS ---
Patient History Date of Service: 10/29/18 Reason for admission: hepatic encephalopathy History of Present Illness: Mr Davis is a 53 years old male with history of CKD, ESLD on a transplant list, requiring recurrent paracentesis procedures, last one was 6 days ago. He came to ED because he has been more confused and lethargic since last night. He was not eating or drinking water today. Last bowel movement was 2 days ago. No history of fever or chills. At my encounter, the patient was alert, but not able to follow commands. Lab work remarkable for normal WBC count, CMP abnormal , remarkable for ammonia level 161. BP on the lower side 99/76. Allergies No Known Drug Allergies Allergy (Verified 07/06/18 10:35) Unknown Home Medications: Citalopram [Celexa*] 1 tab PO DAILY 10/28/18 Lactulose 30 mg PO TID 10/28/18 Midodrine HCl [Proamatine*] 1 tab PO BID 10/28/18 Multivitamin/Iron/Folic Acid [Centrum Adults Tablet] 1 tab PO DAILY 10/28/18 Rifaximin [Xifaxan] 1 tab PO BID 10/28/18 Ursodiol 1 tab PO BID 10/28/18 - Past Medical/Surgical History Has patient received pneumonia vaccine in the past: Yes Diabetic: No -: Chronic kidney disease, stage II -: Chronic alcoholic liver cirrhosis -: Ascites with multiple paracentesis in the past -: Chronic hyponatremia -: Anemia of chronic disease -: GERD -: left wrist sx to remove cyst -: hernia repair -: sx on left lower leg Psychosocial/ Personal History: Patient is - Family History Mother -: Hypertension, GI disease, Liver disease Notes: mother because of cirrhosis Father History Unknown: Yes -: Diabetes - Social History Smoking Status: Never smoker Alcohol use: No CD- Drugs: No Caffeine use: No Place of Residence: Home Review of Systems 10-point ROS is otherwise unremarkable Physical Examination - Vital Signs Temperature: 99.2 F Blood Pressure: 108/64 Pulse: 97 Respirations: 20 Pulse Ox (%): 97 - Physical Exam General: Alert, In no apparent distress HEENT: Atraumatic, PERRLA, Mucous membr. moist/pink, EOMI, Sclerae nonicteric Neck: Supple, 2+ carotid pulse no bruit, No LAD, Without JVD or thyroid abnormality Respiratory: Clear to auscultation bilaterally, Normal air movement Cardiovascular: Regular rate/rhythm, Normal S1 S2 Gastrointestinal: Normal bowel sounds, No tenderness Musculoskeletal: No tenderness Integumentary: No rashes Neurological: Normal gait, Normal speech, Normal strength at 5/5 x4 extr, Normal tone, Normal affect Lymphatics: No axilla or inguinal lymphadenopathy - Studies Laboratory Data (last 24 hrs) 10/28/18 17:00: PT 18.0 H, INR 1.52 10/28/18 17:00: WBC 4.8, Hgb 9.7 L, Hct 28.0 L, Plt Count 72 L 10/28/18 17:00: Sodium 132 L, Potassium 5.0, BUN 57 H, Creatinine 2.23 H, Glucose 103, Magnesium 2.5 H, Total Bilirubin 2.4 H, AST 22, ALT 16, Alkaline Phosphatase 173 H, Lipase 364 - Diagnosis (Problem(s)) (1) Hepatic encephalopathy Onset Date: 12/11/17 Current Visit: No Status: Resolved (2) Alcohol abuse Onset Date: 06/13/17 Current Visit: No Status: Resolved (3) Chronic renal disease Onset Date: 12/11/17 Current Visit: No Status: Chronic Qualifiers: Chronic kidney disease stage: stage 3 (moderate) Qualified Code(s): N18.3 - Chronic kidney disease, stage 3 (moderate) (4) Cirrhosis of liver Onset Date: 03/23/15 Current Visit: No Status: Chronic (5) GERD (gastroesophageal reflux disease) Onset Date: 06/13/17 Current Visit: No Status: Chronic Qualifiers: Esophagitis presence: esophagitis presence not specified Qualified Code(s) : K21.9 - Gastro-esophageal reflux disease without esophagitis Treatment Summary: Overall during the hospital stay patient remained stable Patient was initially admitted to the hospital for hepatic encephalopathy secondary to liver cirrhosis. Patient was given lactulose here in the hospital and had marked improvement in his symptoms. Patient then was discharged home under stable condition. No other complications were noted. Patient's chronic conditions remained stable while here in the hospital. - Disposition Disposition: ROUTINE DISCHARGE Condition: GOOD Patient Discharge Instructions: Please f.u with PCP and Hepatologisit in 1 to 2 week post discharge. Continue Taking all medication as precribed Diet: Regular Activity: Ad dell
== END 2018-10-29 18:58 | disposition home or self-care (01) ==
LOC: ER 16:26 → ERHOLD 19:43 → INTOOBSV 19:43 → 2ND 20:14
PROVIDERS: ADMIT Internal Medicine; ATTEND Internal Medicine
DX: K72.10 Chronic hepatic failure without coma (principal); F10.10 Alcohol abuse, uncomplicated; N18.3 Chronic kidney disease, stage 3 (moderate); K21.9 Gastro-esophageal reflux disease without esophagitis; K74.60 Unspecified cirrhosis of liver
CPT/HCPCS: 36415; 51702; 70450; 71045; 80048; 80053; 80076; 80307; 81003; 81015; 82140; 82962; 83690; 83735; 83880; 84484; 85025; 85610; 86850; 86900; 86901; 87086; 87088; 93005; 94760; 96365; 96366; 96375; 97163; 99285; C9113; G0378; J2405; J3411; J7030

== ENCOUNTER 2018-11-10 18:13 | Emergency (ER) | payer MEDICAID ==
--- OUTSIDE RECORDS SUMMARY | 2018-11-10 18:28 | XMS REPORT ---
:1965 [facility] Address [address] [place] [address] Dr. [place] [address] [place] [id number] Care Team Providers Name Role Phone INGIRD JUNIOR Unavailable Unavailable BRANDO AGUILAR Unavailable Unavailable [...] Value Reference Range Comments CULTURE (BEAKER) (test kpol=9502) No growth GRAM STAIN RESULT (BEAKER) (test lvmw=2514) No WBCs GRAM STAIN RESULT (BEAKER) (test mriv=45092) No organisms seen POCT-GLUCOSE [id number] 07:52:00 Test Item Value Reference Range Comments POC-GLUCOSE METER (BEAKER) 115 mg/dL 70-110 TESTED AT [facility] [address] [place] [address] (test pixu=4667) [facility] [address] [id number] 05:18:00 Test Item Value Reference Range Comments MAGNESIUM (BEAKER) (test evak=407) 1.9 mg/dL 1.6-2.6 COMPREHENSIVE METABOLIC [id number] 05:18:00 Test Item Value Reference Range Comments TOTAL PROTEIN (BEAKER) 5.2 gm/dL 6.0-8.3 (test czfg=444) ALBUMIN (BEAKER) (test 3.4 g/dL 3.5-5.0 ylkb=8329) ALKALINE PHOSPHATASE 113 U/L 40-150 (BEAKER) (test atao=428) BILIRUBIN TOTAL (BEAKER) 2.9 mg/dL 0.2-1.2 (test lzuk=226) SODIUM (BEAKER) (test 131 meq/L 136-145 zteq=486) POTASSIUM (BEAKER) (test 4.0 meq/L 3.5-5.1 xotv=204) CHLORIDE (BEAKER) (test 101 meq/L 98-107 czcz=218) CO2 (BEAKER) (test 21 meq/L 22-29 xfpc=802) BLOOD UREA NITROGEN 28 mg/dL 7-21 (BEAKER) (test nsnw=457) CREATININE (BEAKER) (test 1.65 mg/dL 0.57-1.25 vvsq=357) GLUCOSE RANDOM (BEAKER) 122 mg/dL 70-105 (test vsis=816) CALCIUM (BEAKER) (test 9.3 mg/dL 8.4-10.2 sbck=872) AST (SGOT) (BEAKER) (test 15 U/L 5-34 rlsc=121) ALT (SGPT) (BEAKER) (test 8 U/L 6-55 niae=237) EGFR (BEAKER) (test 44 mL/min/1.73 sq m ESTIMATED GFR IS NOT qdoy=0425) ACCURATE CREATININE CLEARANCE IN PREDICTING GLOMERULAR FILTRATION RATE. ESTIMATED GFR IS NOT APPLICABLE FOR DIALYSIS PATIENTS. Specimen slightly ictericPROTHROMBIN [id number] 04:48:00 Test Item Value Reference Range Comments PROTIME (BEAKER) (test gayl=700) 20.9 seconds 11.7-14.7 INR (BEAKER) (test rgpg=253) 1.8 <=5.9 RECOMMENDED COUMADIN/WARFARIN INR THERAPY RANGESSTANDARD DOSE: 2.0 - 3.0 Includes: PROPHYLAXIS forvenous thrombosis, systemic embolization; TREATMENT for venous thrombosis and/or pulmonary embolus.HIGH RISK: Target INR is 2.5-3.5 for patients with mechanical heart valves.CBC W/PLT COUNT & AUTO [id number] 04:45:00 Test Item Value Reference Range Comments WHITE BLOOD CELL COUNT (BEAKER) (test jgyi=935) 3.4 K/ L 3.5-10.5 RED BLOOD CELL COUNT (BEAKER) (test eikw=720) 2.55 M/ L 4.63-6.08 HEMOGLOBIN (BEAKER) (test cime=443) 8.1 GM/DL 13.7-17.5 HEMATOCRIT (BEAKER) (test guol=345) 24.0 % 40.1-51.0 MEAN CORPUSCULAR VOLUME (BEAKER) (test ulft=690) 94.1 fL 79.0-92.2 MEAN CORPUSCULAR HEMOGLOBIN (BEAKER) (test 31.8 pg 25.7-32.2 gtmy=084) MEAN CORPUSCULAR HEMOGLOBIN CONC (BEAKER) (test 33.8 GM/DL 32.3-36.5 skui=979) RED CELL DISTRIBUTION WIDTH (BEAKER) (test 15.8 % 11.6-14.4 gjjd=221) PLATELET COUNT (BEAKER) (test eyvq=364) 41 K/CU MM 150-450 MEAN PLATELET VOLUME (BEAKER) (test hxgz=128) 10.0 fL 9.4-12.4 NUCLEATED RED BLOOD CELLS (BEAKER) (test 0 /100 WBC 0-0 susi=657) NEUTROPHILS RELATIVE PERCENT (BEAKER) (test 63 % xlwm=544) LYMPHOCYTES RELATIVE PERCENT (BEAKER) (test 19 % qhsi=319) MONOCYTES RELATIVE PERCENT (BEAKER) (test 16 % hcoh=665) EOSINOPHILS RELATIVE PERCENT (BEAKER) (test 2 % talv=575) BASOPHILS RELATIVE PERCENT (BEAKER) (test 0 % ylqc=506) NEUTROPHILS ABSOLUTE COUNT (BEAKER) (test 2.13 K/ L 1.78-5.38 vxan=623) LYMPHOCYTES ABSOLUTE COUNT (BEAKER) (test 0.62 K/ L 1.32-3.57 fmjh=215) MONOCYTES ABSOLUTE COUNT (BEAKER) (test rxpc=316) 0.52 K/ L 0.30-0.82 EOSINOPHILS ABSOLUTE COUNT (BEAKER) (test 0.08 K/ L 0.04-0.54 drss=082) BASOPHILS ABSOLUTE COUNT (BEAKER) (test hvkm=369) 0.00 K/ L 0.01-0.08 IMMATURE GRANULOCYTES-RELATIVE PERCENT (BEAKER) 0 % 0-1 (test aacg=8573) POCT-GLUCOSE [id number] 21:35:00 Test Item Value Reference Range Comments POC-GLUCOSE METER (BEAKER) 215 mg/dL 70-110 TESTED AT [address] (test udoe=6915) [facility] [address] POCT-GLUCOSE [id number] 18:17:00 Test Item Value Reference Range Comments POC-GLUCOSE METER (BEAKER) 149 mg/dL 70-110 TESTED AT [place] [id number] [facility] (test mhgh=8477) [facility] [address] COMPREHENSIVE METABOLIC [id number] 07:34:00 Test Item Value Reference Range Comments TOTAL PROTEIN (BEAKER) 4.7 gm/dL 6.0-8.3 Specimen slightly (test kdci=620) hemolyzed ALBUMIN (BEAKER) (test 3.0 g/dL 3.5-5.0 Specimen slightly kfmu=1420) hemolyzed ALKALINE PHOSPHATASE 107 U/L 40-150 (BEAKER) (test gocj=760) BILIRUBIN TOTAL (BEAKER) 3.1 mg/dL 0.2-1.2 Specimen slightly (test fprr=557) hemolyzed SODIUM (BEAKER) (test 125 meq/L 136-145 wota=826) POTASSIUM (BEAKER) (test 4.9 meq/L 3.5-5.1 Specimen slightly zsfd=304) hemolyzed CHLORIDE (BEAKER) (test 96 meq/L 98-107 dyog=949) CO2 (BEAKER) (test 24 meq/L 22-29 gvjc=442) BLOOD UREA NITROGEN 30 mg/dL 7-21 (BEAKER) (test vzmv=714) CREATININE (BEAKER) (test 1.61 mg/dL 0.57-1.25 Specimen slightly aoov=439) hemolyzed GLUCOSE RANDOM (BEAKER) 127 mg/dL 70-105 (test vpom=311) CALCIUM (BEAKER) (test 8.6 mg/dL 8.4-10.2 bdyw=776) AST (SGOT) (BEAKER) (test 17 U/L 5-34 Specimen slightly lraf=463) hemolyzed ALT (SGPT) (BEAKER) (test < U/L 6-55 Specimen slightly wmli=002) hemolyzed EGFR (BEAKER) (test 45 mL/min/1.73 sq m ESTIMATED GFR IS NOT avpb=6066) ACCURATE CREATININE CLEARANCE IN PREDICTING GLOMERULAR FILTRATION RATE. ESTIMATED GFR IS NOT APPLICABLE FOR DIALYSIS PATIENTS. Specimen slightly [id number] 06:49:00 Test Item Value Reference Range Comments PHOSPHORUS (BEAKER) (test qelp=024) 3.0 mg/dL 2.3-4.7 [id number] 06:49:00 Test Item Value Reference Range Comments MAGNESIUM (BEAKER) (test iuhg=311) 2.0 mg/dL 1.6-2.6 PROTHROMBIN [id number] 06:39:00 Test Item Value Reference Range Comments PROTIME (BEAKER) (test anlh=989) 23.0 seconds 11.7-14.7 INR (BEAKER) (test kuxl=832) 2.0 <=5.9 RECOMMENDED COUMADIN/WARFARIN INR THERAPY RANGESSTANDARD DOSE: 2.0 - 3.0 Includes: PROPHYLAXIS forvenous thrombosis, systemic embolization; TREATMENT for venous thrombosis and/or pulmonary embolus.HIGH RISK: Target INR is 2.5-3.5 for patients with mechanical heart valves.CBC W/PLT COUNT & AUTO [id number] 06:37:00 Test Item Value Reference Range Comments WHITE BLOOD CELL COUNT (BEAKER) (test hxuk=166) 3.3 K/ L 3.5-10.5 RED BLOOD CELL COUNT (BEAKER) (test oiik=462) 2.43 M/ L 4.63-6.08 HEMOGLOBIN (BEAKER) (test vtqy=810) 7.8 GM/DL 13.7-17.5 HEMATOCRIT (BEAKER) (test nats=612) 22.7 % 40.1-51.0 MEAN CORPUSCULAR VOLUME (BEAKER) (test lyeg=990) 93.4 fL 79.0-92.2 MEAN CORPUSCULAR HEMOGLOBIN (BEAKER) (test 32.1 pg 25.7-32.2 gpfw=180) MEAN CORPUSCULAR HEMOGLOBIN CONC (BEAKER) (test 34.4 GM/DL 32.3-36.5 scqo=586) RED CELL DISTRIBUTION WIDTH (BEAKER) (test 15.7 % 11.6-14.4 mzuw=329) PLATELET COUNT (BEAKER) (test srgp=512) 37 K/CU MM 150-450 MEAN PLATELET VOLUME (BEAKER) (test xkhg=778) 9.6 fL 9.4-12.4 NUCLEATED RED BLOOD CELLS (BEAKER) (test 0 /100 WBC 0-0 hibu=502) NEUTROPHILS RELATIVE PERCENT (BEAKER) (test 70 % kfqa=834) LYMPHOCYTES RELATIVE PERCENT (BEAKER) (test 16 % xmcz=112) MONOCYTES RELATIVE PERCENT (BEAKER) (test 11 % jvmu=242) EOSINOPHILS RELATIVE PERCENT (BEAKER) (test 2 % rfvc=480) BASOPHILS RELATIVE PERCENT (BEAKER) (test 0 % cptj=038) NEUTROPHILS ABSOLUTE COUNT (BEAKER) (test 2.29 K/ L 1.78-5.38 iujx=237) LYMPHOCYTES ABSOLUTE COUNT (BEAKER) (test 0.51 K/ L 1.32-3.57 xeha=623) MONOCYTES ABSOLUTE COUNT (BEAKER) (test svbt=779) 0.37 K/ L 0.30-0.82 EOSINOPHILS ABSOLUTE COUNT (BEAKER) (test 0.07 K/ L 0.04-0.54 eqle=212) BASOPHILS ABSOLUTE COUNT (BEAKER) (test tlva=815) 0.01 K/ L 0.01-0.08 IMMATURE GRANULOCYTES-RELATIVE PERCENT (BEAKER) 0 % 0-1 (test tktl=4782) CALCIUM, [id number] 06:36:00 Test Item Value Reference Range Comments CALCIUM IONIZED (BEAKER) (test mwyj=758) 1.00 mmol/L 1.12-1.27 PH, BLOOD (BEAKER) (test sfch=3859) 7.53 POCT-GLUCOSE [id number] 22:31:00 Test Item Value Reference Range Comments POC-GLUCOSE METER (BEAKER) 185 mg/dL 70-110 TESTED AT [address] (test szkw=7495) [facility] [address] POCT-GLUCOSE [id number] 16:03:00 Test Item Value Reference Range Comments POC-GLUCOSE METER (BEAKER) 166 mg/dL 70-110 TESTED AT [address] (test kgfn=2959) [facility] [address] POCT-GLUCOSE [id number] 12:05:00 Test Item Value Reference Range Comments POC-GLUCOSE METER (BEAKER) 175 mg/dL 70-110 TESTED AT [address] (test kdge=5164) [facility] [address] POCT-GLUCOSE [id number] 08:02:00 Test Item Value Reference Range Comments POC-GLUCOSE METER (BEAKER) 162 mg/dL 70-110 TESTED AT [address] (test oxxl=1944) [place] [address] [id number] 03:52:00 Test Item Value Reference Range Comments MAGNESIUM (BEAKER) (test 2.1 mg/dL 1.6-2.6 Specimen slightly hemolyzed julc=213) [id number] 03:52:00 Test Item Value Reference Range Comments PHOSPHORUS (BEAKER) (test 3.0 mg/dL 2.3-4.7 Specimen slightly hemolyzed efff=545) COMPREHENSIVE METABOLIC [id number] 03:52:00 Test Item Value Reference Range Comments TOTAL PROTEIN (BEAKER) 4.9 gm/dL 6.0-8.3 Specimen slightly (test sgyq=735) hemolyzed ALBUMIN (BEAKER) (test 3.2 g/dL 3.5-5.0 Specimen slightly xggt=5284) hemolyzed ALKALINE PHOSPHATASE 109 U/L 40-150 (BEAKER) (test uepv=302) BILIRUBIN TOTAL (BEAKER) 2.7 mg/dL 0.2-1.2 Specimen slightly (test kjrx=655) hemolyzed SODIUM (BEAKER) (test 125 meq/L 136-145 zhcq=616) POTASSIUM (BEAKER) (test 4.7 meq/L 3.5-5.1 Specimen slightly zffn=527) hemolyzed CHLORIDE (BEAKER) (test 96 meq/L 98-107 ewrd=384) CO2 (BEAKER) (test 23 meq/L 22-29 wbru=057) BLOOD UREA NITROGEN 27 mg/dL 7-21 (BEAKER) (test iwth=033) CREATININE (BEAKER) (test 1.86 mg/dL 0.57-1.25 Specimen slightly borr=457) hemolyzed GLUCOSE RANDOM (BEAKER) 164 mg/dL 70-105 (test pqnp=723) CALCIUM (BEAKER) (test 8.4 mg/dL 8.4-10.2 bxrk=228) AST (SGOT) (BEAKER) (test 17 U/L 5-34 Specimen slightly etph=191) hemolyzed ALT (SGPT) (BEAKER) (test 6 U/L 6-55 Specimen slightly koce=744) hemolyzed EGFR (BEAKER) (test 38 mL/min/1.73 sq m ESTIMATED GFR IS NOT ndwx=8011) ACCURATE CREATININE CLEARANCE IN PREDICTING GLOMERULAR FILTRATION RATE. ESTIMATED GFR IS NOT APPLICABLE FOR DIALYSIS PATIENTS. Specimen slightly ictericCALCIUM, [id number] 03:13:00 Test Item Value Reference Range Comments CALCIUM IONIZED (BEAKER) (test aygb=922) 0.94 mmol/L 1.12-1.27 PH, BLOOD (BEAKER) (test iazw=4406) 7.55 PROTHROMBIN [id number] 03:10:00 Test Item Value Reference Range Comments PROTIME (BEAKER) (test wnhx=571) 22.6 seconds 11.7-14.7 INR (BEAKER) (test jfwp=367) 2.0 <=5.9 RECOMMENDED COUMADIN/WARFARIN INR THERAPY RANGESSTANDARD DOSE: 2.0 - 3.0 Includes: PROPHYLAXIS forvenous thrombosis, systemic embolization; TREATMENT for venous thrombosis and/or pulmonary embolus.HIGH RISK: Target INR is 2.5-3.5 for patients with mechanical heart valves.CBC W/PLT COUNT & AUTO [id number] 03:03:00 Test Item Value Reference Range Comments WHITE BLOOD CELL COUNT (BEAKER) (test pppy=311) 3.4 K/ L 3.5-10.5 RED BLOOD CELL COUNT (BEAKER) (test kfyg=514) 2.46 M/ L 4.63-6.08 HEMOGLOBIN (BEAKER) (test qswz=758) 7.8 GM/DL 13.7-17.5 HEMATOCRIT (BEAKER) (test waix=665) 23.5 % 40.1-51.0 MEAN CORPUSCULAR VOLUME (BEAKER) (test aujn=496) 95.5 fL 79.0-92.2 MEAN CORPUSCULAR HEMOGLOBIN (BEAKER) (test 31.7 pg 25.7-32.2 dhml=960) MEAN CORPUSCULAR HEMOGLOBIN CONC (BEAKER) (test 33.2 GM/DL 32.3-36.5 ldam=236) RED CELL DISTRIBUTION WIDTH (BEAKER) (test 15.6 % 11.6-14.4 jynv=264) PLATELET COUNT (BEAKER) (test ipdl=693) 44 K/CU MM 150-450 MEAN PLATELET VOLUME (BEAKER) (test jwho=445) 10.6 fL 9.4-12.4 NUCLEATED RED BLOOD CELLS (BEAKER) (test 0 /100 WBC 0-0 qbbk=028) NEUTROPHILS RELATIVE PERCENT (BEAKER) (test 79 % qtxh=771) LYMPHOCYTES RELATIVE PERCENT (BEAKER) (test 12 % vqpn=632) MONOCYTES RELATIVE PERCENT (BEAKER) (test 8 % cluo=204) EOSINOPHILS RELATIVE PERCENT (BEAKER) (test 0 % jgpm=935) BASOPHILS RELATIVE PERCENT (BEAKER) (test 0 % qvoh=556) NEUTROPHILS ABSOLUTE COUNT (BEAKER) (test 2.67 K/ L 1.78-5.38 maar=642) LYMPHOCYTES ABSOLUTE COUNT (BEAKER) (test 0.41 K/ L 1.32-3.57 wnfk=569) MONOCYTES ABSOLUTE COUNT (BEAKER) (test mmuq=588) 0.27 K/ L 0.30-0.82 EOSINOPHILS ABSOLUTE COUNT (BEAKER) (test 0.01 K/ L 0.04-0.54 tswh=311) BASOPHILS ABSOLUTE COUNT (BEAKER) (test gwpv=415) 0.01 K/ L 0.01-0.08 IMMATURE GRANULOCYTES-RELATIVE PERCENT (BEAKER) 0 % 0-1 (test pxqu=3187) POCT-GLUCOSE [id number] 22:50:00 Test Item Value Reference Range Comments POC-GLUCOSE METER (BEAKER) 199 mg/dL 70-110 TESTED AT [facility] [address] [facility] (test ekfj=1695) [facility] [address] BODY FLUID CELL COUNT WITH [id number] 21:09:00 Test Item Value Reference Range Comments APPEARANCE FLUID (BEAKER) (test owmf=289) Clear Clear COLOR FLUID (BEAKER) (test bgtm=422) Yellow Colorless, Straw RBC FLUID (BEAKER) (test zsmv=446) 140 /cu mm <=1 ADJUSTED WBC FLUID (BEAKER) (test ugns=2265) 70 /cu mm <=5 LINING CELLS (BEAKER) (test uwif=3357) 0 /cu mm <=1 NEUTROPHILS FLUID (BEAKER) (test pueh=4317) 5 % LYMPHS FLUID (BEAKER) (test asty=319) 18 % MONO/MACROPHAGE FLUID (BEAKER) (test dail=728) 77 % EOSINOPHILS FLUID (BEAKER) (test zepq=537) 0 % BASO FLUID (BEAKER) (test zqly=207) 0 % CONTAINER BODY FLUID (BEAKER) (test bjvq=5157) EDTA Tube CORTISOL,60 [id number] 20:10:00 Test Item Value Reference Range Comments CORTISOL BASELINE NETWORKED (BEAKER) (test 5.6 mcg/dL dsmp=3644) CORTISOL 30 MINUTE NETWORKED (BEAKER) (test 13.7 mcg/dL imml=6613) CORTISOL, 60 MINUTE (BEAKER) (test lmqd=5297) 17.1 ug/dL ACTH STIMULATION TEST INTERPRETATION GUIDELINES(Synonyms: [...] serum cortisollevel 60 minutes after cosyntropin administration.CORTISOL,30 [id number] 19:45:00 Test Item Value Reference Range Comments CORTISOL BASELINE NETWORKED (BEAKER) (test 5.6 mcg/dL plcx=7284) CORTISOL, 30 MINUTE (BEAKER) (test eicy=2752) 13.7 ug/dL ACTH STIMULATION TEST INTERPRETATION GUIDELINES(Synonyms: [...] serum cortisollevel 60 minutes after cosyntropin administration.U/S, [id number] 19:13:00Reason for exam:->therapeuticFINAL REPORT PROCEDURE: Ultrasound- guided paracentesis. INDICATION: Ascites. DESCRIPTION: After obtaining informed written consent, ultrasound scan of the abdomen identified ascites in the right lower quadrant. The overlying skin was prepped and draped in the usual, sterile fashion and local 1% lidocaine anesthesia was administered. A 5 [place]ian catheter was advanced into the peritoneal cavity and 6000 mL of area fluid was removed. The catheter was removed without immediate complication. Samples were sent for analysis. IMPRESSION:Uncomplicated ultrasound-guided paracentesis with 6000 mL of fluid removed. Signed: Stuart Dupree Verified Date/Time: 09/08/2018 19 :13:16 Reading Location: [address] Ultrasound Reading Room Electronically signed by: Claudia WEAVER 09/08/2018 07:13 PMCORTISOL, [id number] 18:54:00 Test Item Value Reference Range Comments CORTISOL, BASELINE (TUNG) (test eymh=0058) 5.6 ug/dL ACTH STIMULATION TEST INTERPRETATION GUIDELINES(Synonyms: [...] study by Mindy et al (NEVAEH 2000,283( 8):2652-45), the ACTH Stimulation Test provides important prognostic [...] serum cortisollevel 60 minutes after cosyntropin administration.POCT-GLUCOSE [id number] 12:49:00 Test Item Value Reference Range Comments POC-GLUCOSE METER (BEAKER) 184 mg/dL 70-110 TESTED AT [address] (test tyfy=6075) [place] [address] POCT-GLUCOSE [id number] 07:56:00 Test Item Value Reference Range Comments POC-GLUCOSE METER (BEAKER) 174 mg/dL 70-110 TESTED AT [address] (test kmxg=7580) [place] [address] B-TYPE NATRIURETIC FACTOR (BNP)2018-09-08 05:20:00 Test Item Value Reference Range Comments B-TYPE NATRIURETIC PEPTIDE (BEAKER) (test 900 pg/mL 0-100 csui=365) [id number] 05:15:00 Test Item Value Reference Range Comments PHOSPHORUS (BEAKER) (test cgby=039) 3.2 mg/dL 2.3-4.7 [id number] 05:15:00 Test Item Value Reference Range Comments MAGNESIUM (BEAKER) (test vyyt=742) 2.1 mg/dL 1.6-2.6 COMPREHENSIVE METABOLIC [id number] 05:15:00 Test Item Value Reference Range Comments TOTAL PROTEIN (BEAKER) 4.9 gm/dL 6.0-8.3 (test ljwl=340) ALBUMIN (BEAKER) (test 3.2 g/dL 3.5-5.0 quhj=9194) ALKALINE PHOSPHATASE 109 U/L 40-150 (BEAKER) (test ifoj=088) BILIRUBIN TOTAL (BEAKER) 2.7 mg/dL 0.2-1.2 (test smuu=905) SODIUM (BEAKER) (test 128 meq/L 136-145 bynw=415) POTASSIUM (BEAKER) (test 3.9 meq/L 3.5-5.1 itke=665) CHLORIDE (BEAKER) (test 98 meq/L 98-107 wffy=110) CO2 (BEAKER) (test 23 meq/L 22-29 rwcm=625) BLOOD UREA NITROGEN 27 mg/dL 7-21 (BEAKER) (test uupl=368) CREATININE (BEAKER) (test 2.17 mg/dL 0.57-1.25 ptrc=109) GLUCOSE RANDOM (BEAKER) 136 mg/dL 70-105 (test uagq=052) CALCIUM (BEAKER) (test 8.6 mg/dL 8.4-10.2 izzp=564) AST (SGOT) (BEAKER) (test 15 U/L 5-34 inah=393) ALT (SGPT) (BEAKER) (test 7 U/L 6-55 ydwy=885) EGFR (BEAKER) (test 32 mL/min/1.73 sq m ESTIMATED GFR IS NOT uuee=6529) ACCURATE CREATININE CLEARANCE IN PREDICTING GLOMERULAR FILTRATION RATE. ESTIMATED GFR IS NOT APPLICABLE FOR DIALYSIS PATIENTS. Specimen slightly ictericPROTHROMBIN [id number] 05:01:00 Test Item Value Reference Range Comments PROTIME (BEAKER) (test sknl=431) 22.0 seconds 11.7-14.7 INR (BEAKER) (test powz=085) 1.9 <=5.9 RECOMMENDED COUMADIN/WARFARIN INR THERAPY RANGESSTANDARD DOSE: 2.0 - 3.0 Includes: PROPHYLAXIS forvenous thrombosis, systemic embolization; TREATMENT for venous thrombosis and/or pulmonary embolus.HIGH RISK: Target INR is 2.5-3.5 for patients with mechanical heart valves.CBC W/PLT COUNT & AUTO [id number] 04:55:00 Test Item Value Reference Range Comments WHITE BLOOD CELL COUNT (BEAKER) (test clrg=422) 4.3 K/ L 3.5-10.5 RED BLOOD CELL COUNT (BEAKER) (test lanl=942) 2.46 M/ L 4.63-6.08 HEMOGLOBIN (BEAKER) (test nqtg=484) 7.9 GM/DL 13.7-17.5 HEMATOCRIT (BEAKER) (test fqkw=296) 23.3 % 40.1-51.0 MEAN CORPUSCULAR VOLUME (BEAKER) (test axfw=331) 94.7 fL 79.0-92.2 MEAN CORPUSCULAR HEMOGLOBIN (BEAKER) (test 32.1 pg 25.7-32.2 ykwz=369) MEAN CORPUSCULAR HEMOGLOBIN CONC (BEAKER) (test 33.9 GM/DL 32.3-36.5 xaen=664) RED CELL DISTRIBUTION WIDTH (BEAKER) (test 15.6 % 11.6-14.4 cikz=441) PLATELET COUNT (BEAKER) (test hrom=849) 43 K/CU MM 150-450 MEAN PLATELET VOLUME (BEAKER) (test kepe=075) 9.6 fL 9.4-12.4 NUCLEATED RED BLOOD CELLS (BEAKER) (test 0 /100 WBC 0-0 cmjl=226) NEUTROPHILS RELATIVE PERCENT (BEAKER) (test 63 % efvo=410) LYMPHOCYTES RELATIVE PERCENT (BEAKER) (test 13 % iowo=358) MONOCYTES RELATIVE PERCENT (BEAKER) (test 19 % dptw=939) EOSINOPHILS RELATIVE PERCENT (BEAKER) (test 5 % ndnx=296) BASOPHILS RELATIVE PERCENT (BEAKER) (test 0 % rxal=223) NEUTROPHILS ABSOLUTE COUNT (BEAKER) (test 2.72 K/ L 1.78-5.38 smhy=641) LYMPHOCYTES ABSOLUTE COUNT (BEAKER) (test 0.55 K/ L 1.32-3.57 rqnv=279) MONOCYTES ABSOLUTE COUNT (BEAKER) (test ncew=716) 0.81 K/ L 0.30-0.82 EOSINOPHILS ABSOLUTE COUNT (BEAKER) (test 0.21 K/ L 0.04-0.54 ynpu=405) BASOPHILS ABSOLUTE COUNT (BEAKER) (test wzgb=216) 0.01 K/ L 0.01-0.08 IMMATURE GRANULOCYTES-RELATIVE PERCENT (BEAKER) 0 % 0-1 (test cffq=0800) POCT-GLUCOSE [id number] 23:33:00 Test Item Value Reference Range Comments POC-GLUCOSE METER (BEAKER) 156 mg/dL 70-110 TESTED AT [facility] [address] (test ghuv=0885) [facility] [address] POCT-GLUCOSE [id number] 18:09:00 Test Item Value Reference Range Comments POC-GLUCOSE METER (BEAKER) 170 mg/dL 70-110 TESTED AT [address] (test bclr=4110) [facility] [address] POCT-GLUCOSE [id number] 12:01:00 Test Item Value Reference Range Comments POC-GLUCOSE METER (BEAKER) 181 mg/dL 70-110 TESTED AT [address] (test agxp=0063) [facility] [address] PROTHROMBIN [id number] 08:17:00 Test Item Value Reference Range Comments PROTIME (BEAKER) (test rhmr=075) 21.9 seconds 11.7-14.7 INR (BEAKER) (test lzgo=329) 1.9 <=5.9 RECOMMENDED COUMADIN/WARFARIN INR THERAPY RANGESSTANDARD DOSE: 2.0 - 3.0 Includes: PROPHYLAXIS forvenous thrombosis, systemic embolization; TREATMENT for venous thrombosis and/or pulmonary embolus.HIGH RISK: Target INR is 2.5-3.5 for patients with mechanical heart valves.POCT-GLUCOSE [id number] 08:07:00 Test Item Value Reference Range Comments POC-GLUCOSE METER (BEAKER) 205 mg/dL 70-110 TESTED AT [address] (test jhic=4051) [facility] [address] COMPREHENSIVE METABOLIC [id number] 07:29:00 Test Item Value Reference Range Comments TOTAL PROTEIN (BEAKER) 4.9 gm/dL 6.0-8.3 (test bwbm=135) ALBUMIN (BEAKER) (test 3.3 g/dL 3.5-5.0 ueot=3544) ALKALINE PHOSPHATASE 106 U/L 40-150 (BEAKER) (test aepx=700) BILIRUBIN TOTAL (BEAKER) 2.6 mg/dL 0.2-1.2 (test cuxq=125) SODIUM (BEAKER) (test 129 meq/L 136-145 bgum=734) POTASSIUM (BEAKER) (test 4.9 meq/L 3.5-5.1 uywk=908) CHLORIDE (BEAKER) (test 98 meq/L 98-107 ldnp=131) CO2 (BEAKER) (test 23 meq/L 22-29 dbvc=505) BLOOD UREA NITROGEN 28 mg/dL 7-21 (BEAKER) (test ilep=650) CREATININE (BEAKER) (test 2.31 mg/dL 0.57-1.25 tzrs=261) GLUCOSE RANDOM (BEAKER) 172 mg/dL 70-105 (test szem=593) CALCIUM (BEAKER) (test 8.5 mg/dL 8.4-10.2 fyqg=692) AST (SGOT) (BEAKER) (test 15 U/L 5-34 gcer=760) ALT (SGPT) (BEAKER) (test 6 U/L 6-55 uxde=595) EGFR (BEAKER) (test 30 mL/min/1.73 sq m ESTIMATED GFR IS NOT lamz=4440) ACCURATE CREATININE CLEARANCE IN PREDICTING GLOMERULAR FILTRATION RATE. ESTIMATED GFR IS NOT APPLICABLE FOR DIALYSIS PATIENTS. Specimen slightly ictericCBC W/PLT COUNT & AUTO [id number] 07:11 :00 Test Item Value Reference Range Comments WHITE BLOOD CELL COUNT (BEAKER) (test yaun=787) 4.5 K/ L 3.5-10.5 RED BLOOD CELL COUNT (BEAKER) (test gltw=283) 2.47 M/ L 4.63-6.08 HEMOGLOBIN (BEAKER) (test bhct=281) 7.8 GM/DL 13.7-17.5 HEMATOCRIT (BEAKER) (test svex=255) 23.3 % 40.1-51.0 MEAN CORPUSCULAR VOLUME (BEAKER) (test zpfk=070) 94.3 fL 79.0-92.2 MEAN CORPUSCULAR HEMOGLOBIN (BEAKER) (test 31.6 pg 25.7-32.2 ctip=362) MEAN CORPUSCULAR HEMOGLOBIN CONC (BEAKER) (test 33.5 GM/DL 32.3-36.5 oozk=119) RED CELL DISTRIBUTION WIDTH (BEAKER) (test 15.4 % 11.6-14.4 gday=515) PLATELET COUNT (BEAKER) (test lzmf=561) 43 K/CU MM 150-450 MEAN PLATELET VOLUME (BEAKER) (test rils=409) 8.7 fL 9.4-12.4 NUCLEATED RED BLOOD CELLS (BEAKER) (test 0 /100 WBC 0-0 prue=309) NEUTROPHILS RELATIVE PERCENT (BEAKER) (test 64 % zord=910) LYMPHOCYTES RELATIVE PERCENT (BEAKER) (test 11 % xicw=220) MONOCYTES RELATIVE PERCENT (BEAKER) (test 20 % vsdz=849) EOSINOPHILS RELATIVE PERCENT (BEAKER) (test 4 % tcqm=589) BASOPHILS RELATIVE PERCENT (BEAKER) (test 0 % hrul=381) NEUTROPHILS ABSOLUTE COUNT (BEAKER) (test 2.86 K/ L 1.78-5.38 oygt=677) LYMPHOCYTES ABSOLUTE COUNT (BEAKER) (test 0.49 K/ L 1.32-3.57 srkp=701) MONOCYTES ABSOLUTE COUNT (BEAKER) (test ojid=602) 0.90 K/ L 0.30-0.82 EOSINOPHILS ABSOLUTE COUNT (BEAKER) (test 0.18 K/ L 0.04-0.54 ozba=525) BASOPHILS ABSOLUTE COUNT (BEAKER) (test xqcy=401) 0.02 K/ L 0.01-0.08 IMMATURE GRANULOCYTES-RELATIVE PERCENT (BEAKER) 0 % 0-1 (test mlkb=9942) POCT-GLUCOSE [id number] 22:31:00 Test Item Value Reference Range Comments POC-GLUCOSE METER (BEAKER) 161 mg/dL 70-110 TESTED AT [address] (test bjdk=0445) [place] [id number] POCT-GLUCOSE [id number] 16:31:00 Test Item Value Reference Range Comments POC-GLUCOSE METER (BEAKER) 135 mg/dL 70-110 TESTED AT [address] (test rszs=2486) [place] [id number] POCT-GLUCOSE [id number] 12:16:00 Test Item Value Reference Range Comments POC-GLUCOSE METER (BEAKER) 144 mg/dL 70-110 TESTED AT [address] (test sqhs=4822) [facility] [address] POCT-GLUCOSE [id number] 07:53:00 Test Item Value Reference Range Comments POC-GLUCOSE METER (BEAKER) 93 mg/dL 70-110 TESTED AT [address] (test gkma=6407) [facility] [address] COMPREHENSIVE METABOLIC [id number] 06:55:00 Test Item Value Reference Range Comments TOTAL PROTEIN (BEAKER) 4.8 gm/dL 6.0-8.3 (test uraj=016) ALBUMIN (BEAKER) (test 3.3 g/dL 3.5-5.0 fmtp=6057) ALKALINE PHOSPHATASE 103 U/L 40-150 (BEAKER) (test mrpa=694) BILIRUBIN TOTAL (BEAKER) 2.7 mg/dL 0.2-1.2 (test cwok=476) SODIUM (BEAKER) (test 125 meq/L 136-145 wikw=146) POTASSIUM (BEAKER) (test 4.6 meq/L 3.5-5.1 gniq=576) CHLORIDE (BEAKER) (test 96 meq/L 98-107 peob=697) CO2 (BEAKER) (test 22 meq/L 22-29 jobu=814) BLOOD UREA NITROGEN 30 mg/dL 7-21 (BEAKER) (test tvjz=191) CREATININE (BEAKER) (test 2.01 mg/dL 0.57-1.25 kquc=866) GLUCOSE RANDOM (BEAKER) 88 mg/dL 70-105 (test xdzw=360) CALCIUM (BEAKER) (test 8.5 mg/dL 8.4-10.2 gcar=903) AST (SGOT) (BEAKER) (test 17 U/L 5-34 htse=520) ALT (SGPT) (BEAKER) (test 7 U/L 6-55 emut=133) EGFR (BEAKER) (test 35 mL/min/1.73 sq m ESTIMATED GFR IS NOT tfti=5642) ACCURATE CREATININE CLEARANCE IN PREDICTING GLOMERULAR FILTRATION RATE. ESTIMATED GFR IS NOT APPLICABLE FOR DIALYSIS PATIENTS. Specimen slightly ictericPROTHROMBIN TIME/[id number] 06:10:00 Test Item Value Reference Range Comments PROTIME (BEAKER) (test gvnz=422) 23.2 seconds 11.7-14.7 INR (BEAKER) (test lhln=528) 2.1 <=5.9 RECOMMENDED COUMADIN/WARFARIN INR THERAPY RANGESSTANDARD DOSE: 2.0 - 3.0 Includes: PROPHYLAXIS forvenous thrombosis, systemic embolization; TREATMENT for venous thrombosis and/or pulmonary embolus.HIGH RISK: Target INR is 2.5-3.5 for patients with mechanical heart valves.POCT-GLUCOSE [id number] 22:42:00 Test Item Value Reference Range Comments POC-GLUCOSE METER (BEAKER) 124 mg/dL 70-110 TESTED AT [address] (test zksb=2503) [facility] [address] POCT-GLUCOSE [id number] 17:04:00 Test Item Value Reference Range Comments POC-GLUCOSE METER (BEAKER) 86 mg/dL 70-110 TESTED AT [address] (test crqg=7672) [facility] [address] POCT-GLUCOSE [id number] 12:08:00 Test Item Value Reference Range Comments POC-GLUCOSE METER (BEAKER) 159 mg/dL 70-110 TESTED AT [facility] [address] [facility] (test zymr=8209) [facility] [address] [id number] 08:39:00 Test Item Value Reference Range Comments PHOSPHORUS (BEAKER) (test ctta=026) 3.9 mg/dL 2.3-4.7 [id number] 08:39:00 Test Item Value Reference Range Comments MAGNESIUM (BEAKER) (test uuvm=955) 2.1 mg/dL 1.6-2.6 COMPREHENSIVE METABOLIC [id number] 08:39:00 Test Item Value Reference Range Comments TOTAL PROTEIN (BEAKER) 5.2 gm/dL 6.0-8.3 (test pyte=620) ALBUMIN (BEAKER) (test 3.5 g/dL 3.5-5.0 njjv=8558) ALKALINE PHOSPHATASE 110 U/L 40-150 (BEAKER) (test fdto=340) BILIRUBIN TOTAL (BEAKER) 2.4 mg/dL 0.2-1.2 (test rrlc=972) SODIUM (BEAKER) (test 122 meq/L 136-145 lnqr=567) POTASSIUM (BEAKER) (test 4.5 meq/L 3.5-5.1 gcta=056) CHLORIDE (BEAKER) (test 94 meq/L 98-107 unxa=272) CO2 (BEAKER) (test 20 meq/L 22-29 pymg=410) BLOOD UREA NITROGEN 31 mg/dL 7-21 (BEAKER) (test etkp=450) CREATININE (BEAKER) (test 1.94 mg/dL 0.57-1.25 toes=148) GLUCOSE RANDOM (BEAKER) 127 mg/dL 70-105 (test biat=973) CALCIUM (BEAKER) (test 8.6 mg/dL 8.4-10.2 agbm=597) AST (SGOT) (BEAKER) (test 17 U/L 5-34 azqm=482) ALT (SGPT) (BEAKER) (test 8 U/L 6-55 jsda=091) EGFR (BEAKER) (test 36 mL/min/1.73 sq m ESTIMATED GFR IS NOT tkxt=6585) ACCURATE CREATININE CLEARANCE IN PREDICTING GLOMERULAR FILTRATION RATE. ESTIMATED GFR IS NOT APPLICABLE FOR DIALYSIS PATIENTS. Specimen slightly ictericPOCT-GLUCOSE [id number] 07:49:00 Test Item Value Reference Range Comments POC-GLUCOSE METER (BEAKER) 132 mg/dL 70-110 TESTED AT [facility] [address] [facility] (test hdgf=4310) [place] [address] CALCIUM, [id number] 06:35:00 Test Item Value Reference Range Comments CALCIUM IONIZED (BEAKER) (test ayzx=402) 1.08 mmol/L 1.12-1.27 PH, BLOOD (BEAKER) (test aszk=4977) 7.39 CBC W/PLT COUNT & AUTO [id number] 05:56:00 Test Item Value Reference Range Comments WHITE BLOOD CELL COUNT (BEAKER) (test aszh=875) 4.1 K/ L 3.5-10.5 RED BLOOD CELL COUNT (BEAKER) (test shjl=293) 2.67 M/ L 4.63-6.08 HEMOGLOBIN (BEAKER) (test ssuc=948) 8.3 GM/DL 13.7-17.5 HEMATOCRIT (BEAKER) (test bunx=758) 24.7 % 40.1-51.0 MEAN CORPUSCULAR VOLUME (BEAKER) (test knrl=887) 92.5 fL 79.0-92.2 MEAN CORPUSCULAR HEMOGLOBIN (BEAKER) (test 31.1 pg 25.7-32.2 uvxq=274) MEAN CORPUSCULAR HEMOGLOBIN CONC (BEAKER) (test 33.6 GM/DL 32.3-36.5 avwm=829) RED CELL DISTRIBUTION WIDTH (BEAKER) (test 15.0 % 11.6-14.4 behx=871) PLATELET COUNT (BEAKER) (test nczo=511) 58 K/CU MM 150-450 MEAN PLATELET VOLUME (BEAKER) (test qlln=666) 9.3 fL 9.4-12.4 NUCLEATED RED BLOOD CELLS (BEAKER) (test 0 /100 WBC 0-0 eigi=206) NEUTROPHILS RELATIVE PERCENT (BEAKER) (test 64 % ibec=717) LYMPHOCYTES RELATIVE PERCENT (BEAKER) (test 12 % jcka=280) MONOCYTES RELATIVE PERCENT (BEAKER) (test 18 % pkni=835) EOSINOPHILS RELATIVE PERCENT (BEAKER) (test 5 % sror=913) BASOPHILS RELATIVE PERCENT (BEAKER) (test 0 % rdhx=778) NEUTROPHILS ABSOLUTE COUNT (BEAKER) (test 2.63 K/ L 1.78-5.38 lcbk=900) LYMPHOCYTES ABSOLUTE COUNT (BEAKER) (test 0.51 K/ L 1.32-3.57 vgsc=292) MONOCYTES ABSOLUTE COUNT (BEAKER) (test ljce=163) 0.74 K/ L 0.30-0.82 EOSINOPHILS ABSOLUTE COUNT (BEAKER) (test 0.21 K/ L 0.04-0.54 sodf=406) BASOPHILS ABSOLUTE COUNT (BEAKER) (test cxmx=598) 0.01 K/ L 0.01-0.08 IMMATURE GRANULOCYTES-RELATIVE PERCENT (BEAKER) 1 % 0-1 (test lhny=2881) PROTHROMBIN [id number] 05:49:00 Test Item Value Reference Range Comments PROTIME (BEAKER) (test lumy=959) 20.4 seconds 11.7-14.7 INR (BEAKER) (test lwqh=539) 1.8 <=5.9 RECOMMENDED COUMADIN/WARFARIN INR THERAPY RANGESSTANDARD DOSE: 2.0 - 3.0 Includes: PROPHYLAXIS forvenous thrombosis, systemic embolization; TREATMENT for venous thrombosis and/or pulmonary embolus.HIGH RISK: Target INR is 2.5-3.5 for patients with mechanical heart valves.[id number] 22:31:00 Test Item Value Reference Range Comments SODIUM (BEAKER) (test hmva=505) 123 meq/L 136-145 POTASSIUM (BEAKER) (test kxla=773) 4.5 meq/L 3.5-5.1 CHLORIDE (BEAKER) (test ujou=972) 94 meq/L 98-107 CO2 (BEAKER) (test byak=996) 22 meq/L 22-29 Call results "at a decent hour" to [phone]-GLUCOSE [id number] 21: 48:00 Test Item Value Reference Range Comments POC-GLUCOSE METER (BEAKER) 144 mg/dL 70-110 TESTED AT [facility] [address] [facility] (test zbjx=2808) [facility] [address] [id number] 17:27:00 Test Item Value Reference Range Comments CORTISOL, TOTAL (BEAKER) (test rhxu=7639) 1.9 ug/dL 3.7-19.4 [id number] 17:03:00 Test Item Value Reference Range Comments SODIUM (BEAKER) (test vbhy=705) 123 meq/L 136-145 POTASSIUM (BEAKER) (test mlrw=255) 4.7 meq/L 3.5-5.1 CHLORIDE (BEAKER) (test eorx=320) 95 meq/L 98-107 CO2 (BEAKER) (test xfmp=932) 21 meq/L 22-29 Call resultsPOCT-GLUCOSE [id number] 16:48:00 Test Item Value Reference Range Comments POC-GLUCOSE METER (BEAKER) 117 mg/dL 70-110 TESTED AT [address] (test jhiw=0394) [place] [address] SODIUM, RANDOM [id number] 15:12:00 Test Item Value Reference Range Comments SODIUM URINE (BEAKER) (test kiaa=375) < meq/L Reference Range: No NormalsCREATININE, RANDOM [id number] 15:11:00 Test Item Value Reference Range Comments CREATININE URINE (BEAKER) (test mcdf=512) 87.5 mg/dL Reference Range: No NormalsOSMOLALITY, [id number] 15:05:00 Test Item Value Reference Range Comments OSMOLALITY URINE (BEAKER) (test xymu=741) 234 mOsm/kg 40-1,400 POCT-GLUCOSE [id number] 13:14:00 Test Item Value Reference Range Comments POC-GLUCOSE METER (BEAKER) 129 mg/dL 70-110 TESTED AT [address] (test aibj=9931) [place] [address] [id number] 10:06:00 Test Item Value Reference Range Comments SODIUM (BEAKER) (test vwwg=310) 120 meq/L 136-145 POTASSIUM (BEAKER) (test wwdb=537) 4.6 meq/L 3.5-5.1 CHLORIDE (BEAKER) (test ttjz=921) 93 meq/L 98-107 CO2 (BEAKER) (test ujwf=445) 23 meq/L 22-29 Call [id number] 09:01:00 Test Item Value Reference Range Comments POC-GLUCOSE METER (BEAKER) 97 mg/dL 70-110 TESTED AT [facility] [address] (test nwtq=0824) [facility] [address] COMPREHENSIVE METABOLIC [id number] 08:40:00 Test Item Value Reference Range Comments TOTAL PROTEIN (BEAKER) 5.2 gm/dL 6.0-8.3 (test osaf=133) ALBUMIN (BEAKER) (test 3.7 g/dL 3.5-5.0 tefx=1238) ALKALINE PHOSPHATASE 104 U/L 40-150 (BEAKER) (test hmde=066) BILIRUBIN TOTAL (BEAKER) 3.3 mg/dL 0.2-1.2 (test hhbb=732) SODIUM (BEAKER) (test 120 meq/L 136-145 mrqk=299) POTASSIUM (BEAKER) (test 4.8 meq/L 3.5-5.1 sovl=257) CHLORIDE (BEAKER) (test 93 meq/L 98-107 tzui=024) CO2 (BEAKER) (test 20 meq/L 22-29 fqhr=720) BLOOD UREA NITROGEN 31 mg/dL 7-21 (BEAKER) (test tndq=538) CREATININE (BEAKER) (test 1.72 mg/dL 0.57-1.25 rmth=204) GLUCOSE RANDOM (BEAKER) 99 mg/dL 70-105 (test omyx=865) CALCIUM (BEAKER) (test 8.9 mg/dL 8.4-10.2 zbpu=245) AST (SGOT) (BEAKER) (test 16 U/L 5-34 vfmc=842) ALT (SGPT) (BEAKER) (test < U/L 6-55 tnzm=798) EGFR (BEAKER) (test 42 mL/min/1.73 sq m ESTIMATED GFR IS NOT dwrl=6343) ACCURATE CREATININE CLEARANCE IN PREDICTING GLOMERULAR FILTRATION RATE. ESTIMATED GFR IS NOT APPLICABLE FOR DIALYSIS PATIENTS. Specimen slightly [id number] 08:14:00 Test Item Value Reference Range Comments PHOSPHORUS (BEAKER) (test ylvm=215) 3.8 mg/dL 2.3-4.7 [id number] 08:14:00 Test Item Value Reference Range Comments MAGNESIUM (BEAKER) (test cefl=596) 2.1 mg/dL 1.6-2.6 CALCIUM, [id number] 06:56:00 Test Item Value Reference Range Comments CALCIUM IONIZED (BEAKER) (test vroi=675) 1.12 mmol/L 1.12-1.27 PH, BLOOD (BEAKER) (test utnd=6125) 7.36 CBC W/PLT COUNT & AUTO [id number] 06:38:00 Test Item Value Reference Range Comments WHITE BLOOD CELL COUNT (BEAKER) (test ylba=786) 4.9 K/ L 3.5-10.5 RED BLOOD CELL COUNT (BEAKER) (test nwlb=589) 2.69 M/ L 4.63-6.08 HEMOGLOBIN (BEAKER) (test vssm=120) 8.3 GM/DL 13.7-17.5 HEMATOCRIT (BEAKER) (test ytds=354) 24.8 % 40.1-51.0 MEAN CORPUSCULAR VOLUME (BEAKER) (test rllo=193) 92.2 fL 79.0-92.2 MEAN CORPUSCULAR HEMOGLOBIN (BEAKER) (test 30.9 pg 25.7-32.2 vkzv=246) MEAN CORPUSCULAR HEMOGLOBIN CONC (BEAKER) (test 33.5 GM/DL 32.3-36.5 qugl=234) RED CELL DISTRIBUTION WIDTH (BEAKER) (test 14.8 % 11.6-14.4 kaeg=814) PLATELET COUNT (BEAKER) (test teco=370) 65 K/CU MM 150-450 MEAN PLATELET VOLUME (BEAKER) (test wyml=122) 9.1 fL 9.4-12.4 NUCLEATED RED BLOOD CELLS (BEAKER) (test 0 /100 WBC 0-0 mkww=553) NEUTROPHILS RELATIVE PERCENT (BEAKER) (test 67 % xoee=742) LYMPHOCYTES RELATIVE PERCENT (BEAKER) (test 10 % cklx=940) MONOCYTES RELATIVE PERCENT (BEAKER) (test 17 % igob=263) EOSINOPHILS RELATIVE PERCENT (BEAKER) (test 5 % vocq=083) BASOPHILS RELATIVE PERCENT (BEAKER) (test 0 % dgrx=156) NEUTROPHILS ABSOLUTE COUNT (BEAKER) (test 3.32 K/ L 1.78-5.38 hebv=735) LYMPHOCYTES ABSOLUTE COUNT (BEAKER) (test 0.51 K/ L 1.32-3.57 delm=048) MONOCYTES ABSOLUTE COUNT (BEAKER) (test eshu=284) 0.83 K/ L 0.30-0.82 EOSINOPHILS ABSOLUTE COUNT (BEAKER) (test 0.23 K/ L 0.04-0.54 qeps=511) BASOPHILS ABSOLUTE COUNT (BEAKER) (test osvb=567) 0.02 K/ L 0.01-0.08 IMMATURE GRANULOCYTES-RELATIVE PERCENT (BEAKER) 1 % 0-1 (test wkgh=0099) [id number] 06:35:00 Test Item Value Reference Range Comments PARTIAL THROMBOPLASTIN TIME (BEAKER) (test 52.6 seconds 22.5-36.0 yqkj=220) PROTHROMBIN [id number] 06:34:00 Test Item Value Reference Range Comments PROTIME (BEAKER) (test jjxr=556) 21.6 seconds 11.7-14.7 INR (BEAKER) (test cylj=155) 1.9 <=5.9 RECOMMENDED COUMADIN/WARFARIN INR THERAPY RANGESSTANDARD DOSE: 2.0 - 3.0 Includes: PROPHYLAXIS forvenous thrombosis, systemic embolization; TREATMENT for venous thrombosis and/or pulmonary embolus.HIGH RISK: Target INR is 2.5-3.5 for patients with mechanical heart valves.POCT-GLUCOSE [id number] 22:00:00 Test Item Value Reference Range Comments POC-GLUCOSE METER (BEAKER) 114 mg/dL 70-110 TESTED AT [address] (test ssap=7886) [place] [address] POCT-GLUCOSE [id number] 17:57:00 Test Item Value Reference Range Comments POC-GLUCOSE METER (BEAKER) 139 mg/dL 70-110 TESTED AT [address] (test eobc=6563) [place] [address] POCT-GLUCOSE [id number] 11:57:00 Test Item Value Reference Range Comments POC-GLUCOSE METER (BEAKER) 146 mg/dL 70-110 TESTED AT [address] (test hcqx=2258) [place] [address] POCT-GLUCOSE [id number] 09:16:00 Test Item Value Reference Range Comments POC-GLUCOSE METER (BEAKER) 109 mg/dL 70-110 TESTED AT [address] (test ipvv=3912) [place] [address] COMPREHENSIVE METABOLIC [id number] 05:53:00 Test Item Value Reference Range Comments TOTAL PROTEIN (BEAKER) 5.2 gm/dL 6.0-8.3 (test ycfg=595) ALBUMIN (BEAKER) (test 3.8 g/dL 3.5-5.0 arzi=6588) ALKALINE PHOSPHATASE 110 U/L 40-150 (BEAKER) (test hfnn=442) BILIRUBIN TOTAL (BEAKER) 4.5 mg/dL 0.2-1.2 (test zeeu=250) SODIUM (BEAKER) (test 124 meq/L 136-145 xrpy=244) POTASSIUM (BEAKER) (test 4.5 meq/L 3.5-5.1 ihxi=844) CHLORIDE (BEAKER) (test 95 meq/L 98-107 itfx=602) CO2 (BEAKER) (test 22 meq/L 22-29 ydor=211) BLOOD UREA NITROGEN 30 mg/dL 7-21 (BEAKER) (test enxv=497) CREATININE (BEAKER) (test 1.67 mg/dL 0.57-1.25 mhbf=516) GLUCOSE RANDOM (BEAKER) 99 mg/dL 70-105 (test fsux=329) CALCIUM (BEAKER) (test 9.0 mg/dL 8.4-10.2 wdyk=291) AST (SGOT) (BEAKER) (test 16 U/L 5-34 fubz=921) ALT (SGPT) (BEAKER) (test < U/L 6-55 vyfp=832) EGFR (BEAKER) (test 43 mL/min/1.73 sq m ESTIMATED GFR IS NOT lmne=1541) ACCURATE CREATININE CLEARANCE IN PREDICTING GLOMERULAR FILTRATION RATE. ESTIMATED GFR IS NOT APPLICABLE FOR DIALYSIS PATIENTS. Specimen slightly [id number] 05:50:00 Test Item Value Reference Range Comments PHOSPHORUS (BEAKER) (test xbun=337) 3.7 mg/dL 2.3-4.7 [id number] 05:50:00 Test Item Value Reference Range Comments MAGNESIUM (BEAKER) (test maix=149) 2.1 mg/dL 1.6-2.6 CBC W/PLT COUNT & AUTO [id number] 05:28:00 Test Item Value Reference Range Comments WHITE BLOOD CELL COUNT (BEAKER) (test sasj=444) 4.0 K/ L 3.5-10.5 RED BLOOD CELL COUNT (BEAKER) (test itxi=091) 2.80 M/ L 4.63-6.08 HEMOGLOBIN (BEAKER) (test dyrq=337) 8.7 GM/DL 13.7-17.5 HEMATOCRIT (BEAKER) (test szka=740) 25.8 % 40.1-51.0 MEAN CORPUSCULAR VOLUME (BEAKER) (test tewc=305) 92.1 fL 79.0-92.2 MEAN CORPUSCULAR HEMOGLOBIN (BEAKER) (test 31.1 pg 25.7-32.2 aiyo=671) MEAN CORPUSCULAR HEMOGLOBIN CONC (BEAKER) (test 33.7 GM/DL 32.3-36.5 opcu=672) RED CELL DISTRIBUTION WIDTH (BEAKER) (test 14.7 % 11.6-14.4 elpx=521) PLATELET COUNT (BEAKER) (test cuaf=774) 42 K/CU MM 150-450 MEAN PLATELET VOLUME (BEAKER) (test amqh=201) 9.8 fL 9.4-12.4 NUCLEATED RED BLOOD CELLS (BEAKER) (test 0 /100 WBC 0-0 smdc=820) NEUTROPHILS RELATIVE PERCENT (BEAKER) (test 59 % reab=043) LYMPHOCYTES RELATIVE PERCENT (BEAKER) (test 15 % kaey=984) MONOCYTES RELATIVE PERCENT (BEAKER) (test 20 % mrfe=351) EOSINOPHILS RELATIVE PERCENT (BEAKER) (test 5 % iqvr=156) BASOPHILS RELATIVE PERCENT (BEAKER) (test 1 % fhxc=584) NEUTROPHILS ABSOLUTE COUNT (BEAKER) (test 2.37 K/ L 1.78-5.38 axqq=141) LYMPHOCYTES ABSOLUTE COUNT (BEAKER) (test 0.58 K/ L 1.32-3.57 eugv=454) MONOCYTES ABSOLUTE COUNT (BEAKER) (test ktex=689) 0.78 K/ L 0.30-0.82 EOSINOPHILS ABSOLUTE COUNT (BEAKER) (test 0.21 K/ L 0.04-0.54 msrv=845) BASOPHILS ABSOLUTE COUNT (BEAKER) (test uhtm=107) 0.02 K/ L 0.01-0.08 IMMATURE GRANULOCYTES-RELATIVE PERCENT (BEAKER) 1 % 0-1 (test nzzv=2876) PROTHROMBIN [id number] 05:26:00 Test Item Value Reference Range Comments PROTIME (BEAKER) (test quna=862) 23.3 seconds 11.7-14.7 INR (BEAKER) (test fzgs=267) 2.1 <=5.9 RECOMMENDED COUMADIN/WARFARIN INR THERAPY RANGESSTANDARD DOSE: 2.0 - 3.0 Includes: PROPHYLAXIS forvenous thrombosis, systemic embolization; TREATMENT for venous thrombosis and/or pulmonary embolus.HIGH RISK: Target INR is 2.5-3.5 for patients with mechanical heart valves.CALCIUM, [id number] 05:21:00 Test Item Value Reference Range Comments CALCIUM IONIZED (BEAKER) (test qwvy=338) 1.11 mmol/L 1.12-1.27 PH, BLOOD (BEAKER) (test aidw=9088) 7.40 POCT-GLUCOSE [id number] 21:47:00 Test Item Value Reference Range Comments POC-GLUCOSE METER (BEAKER) 129 mg/dL 70-110 TESTED AT [address] (test gqum=1402) [facility] [address] RAD, CHEST, 1 VIEW, NON [id number] 17:18:00Reason for exam:->sobFINAL REPORT Comparison: 08/26/2018 TECHNIQUE: Single view of the chest FINDINGS: Lung volumes are low. Bibasilar densities may represent atelectasis. Otherwise lungs are clear. Cardiac silhouette is within normal limits. Soft tissues and bones are unremarkable. Signed: Rick Guerra MDReport Verified Date/Time: 09/02/2018 17:18:49 Reading Location: [facility] Mammo Reading Room CBC W/ PLT COUNT & AUTO [id number] 17:16:00 Test Item Value Reference Range Comments WHITE BLOOD CELL COUNT (BEAKER) (test wvtp=126) 3.8 K/ L 3.5-10.5 RED BLOOD CELL COUNT (BEAKER) (test lnwd=148) 2.37 M/ L 4.63-6.08 HEMOGLOBIN (BEAKER) (test amqq=697) 7.4 GM/DL 13.7-17.5 HEMATOCRIT (BEAKER) (test tzcd=758) 21.8 % 40.1-51.0 MEAN CORPUSCULAR VOLUME (BEAKER) (test bvoq=186) 92.0 fL 79.0-92.2 MEAN CORPUSCULAR HEMOGLOBIN (BEAKER) (test 31.2 pg 25.7-32.2 wyik=390) MEAN CORPUSCULAR HEMOGLOBIN CONC (BEAKER) (test 33.9 GM/DL 32.3-36.5 uduu=415) RED CELL DISTRIBUTION WIDTH (BEAKER) (test 14.9 % 11.6-14.4 okja=963) PLATELET COUNT (BEAKER) (test umnd=772) 41 K/CU MM 150-450 MEAN PLATELET VOLUME (BEAKER) (test iplu=245) 8.8 fL 9.4-12.4 NUCLEATED RED BLOOD CELLS (BEAKER) (test 0 /100 WBC 0-0 zslh=358) NEUTROPHILS RELATIVE PERCENT (BEAKER) (test 62 % hkaf=203) LYMPHOCYTES RELATIVE PERCENT (BEAKER) (test 14 % tgwe=862) MONOCYTES RELATIVE PERCENT (BEAKER) (test 18 % frrw=023) EOSINOPHILS RELATIVE PERCENT (BEAKER) (test 4 % vwqx=649) BASOPHILS RELATIVE PERCENT (BEAKER) (test 0 % zwxd=587) NEUTROPHILS ABSOLUTE COUNT (BEAKER) (test 2.39 K/ L 1.78-5.38 njjg=013) LYMPHOCYTES ABSOLUTE COUNT (BEAKER) (test 0.55 K/ L 1.32-3.57 ykjj=209) MONOCYTES ABSOLUTE COUNT (BEAKER) (test ryou=024) 0.69 K/ L 0.30-0.82 EOSINOPHILS ABSOLUTE COUNT (BEAKER) (test 0.17 K/ L 0.04-0.54 mvxi=275) BASOPHILS ABSOLUTE COUNT (BEAKER) (test nutj=641) 0.01 K/ L 0.01-0.08 IMMATURE GRANULOCYTES-RELATIVE PERCENT (BEAKER) 1 % 0-1 (test ebwf=8994) POCT-BLOOD GASES, [id number] 16:58:00 Test Item Value Reference Range Comments TEMP, CELSIUS-POC (BEAKER) 37.0 (test perr=2644) FIO2-POC (BEAKER) (test TESTED AT [facility] [address] [facility] zehy=2435) [facility] [address] PH, ARTERIAL-POC (BEAKER) 7.412 7.350-7.450 (test ujhg=1073) PCO2, ARTERIAL-POC (BEAKER) 35.5 mm Hg 35.0-45.0 (test iudk=9950) PO2, ARTERIAL-POC (BEAKER) 69.0 mm Hg 80.0-90.0 (test jxcs=5389) SO2, ARTERIAL-POC (BEAKER) 94.0 % 96.0-97.0 (test wltq=8643) HCO3, ARTERIAL-POC (BEAKER) 22.6 meq/L 21.0-29.0 (test owmn=3858) BASE EXCESS, ARTERIAL-POC -2.0 meq/L -2.0-3.0 (BEAKER) (test luka=6192) [id number] 16:58:00 Test Item Value Reference Range Comments POC-SODIUM (BEAKER) (test 125 meq/L 135-148 TESTED AT [address] zggm=4484) [place] [address] [id number] 16:58:00 Test Item Value Reference Range Comments POC-POTASSIUM (BEAKER) (test 4.2 meq/L 3.6-5.5 TESTED AT [address] sfbf=8216) [place] [address] [id number] 16:58:00 Test Item Value Reference Range Comments POC-GLUCOSE (BEAKER) (test 128 mg/dL 70-110 TESTED AT [address] fvmc=9490) [place] [address] POCT-CALCIUM [id number] 16:58:00 Test Item Value Reference Range Comments POC-CALCIUM IONIZED (BEAKER) 1.24 mmol/L 1.12-1.27 TESTED AT [address] (test hkrt=2874) [place] [address] [id number] 16:58:00 Test Item Value Reference Range Comments POC-HEMATOCRIT (BEAKER) (test 21 % 40-50 TESTED AT [address] wgst=0399) [place] [address] [id number] 16:58:00 Test Item Value Reference Range Comments POC-HEMOGLOBIN (BEAKER) 7.1 g/dL 13.0-16.8 TESTED AT [address] (test vquc=8863) [facility] [id number] AT [address] [address] POCT-LACTIC ACID, [id number] 16:58:00 Test Item Value Reference Range Comments POC-LACTIC ACID, ARTERIAL 1.0 mmol/L 0.4-1.3 TESTED AT [address] (BEAKER) (test kppm=9716) [facility] [address] POCT-GLUCOSE [id number] 11:43:00 Test Item Value Reference Range Comments POC-GLUCOSE METER (BEAKER) 169 mg/dL 70-110 TESTED AT [address] (test oreh=4776) [facility] [address] POCT-GLUCOSE [id number] 08:23:00 Test Item Value Reference Range Comments POC-GLUCOSE METER (BEAKER) 128 mg/dL 70-110 TESTED AT [address] (test loqz=5138) [place] [address] [id number] 05:16:00 Test Item Value Reference Range Comments PHOSPHORUS (BEAKER) (test vvns=571) 3.8 mg/dL 2.3-4.7 [id number] 05:16:00 Test Item Value Reference Range Comments MAGNESIUM (BEAKER) (test aqsc=031) 2.0 mg/dL 1.6-2.6 COMPREHENSIVE METABOLIC [id number] 05:16:00 Test Item Value Reference Range Comments TOTAL PROTEIN (BEAKER) 5.0 gm/dL 6.0-8.3 (test evue=143) ALBUMIN (BEAKER) (test 3.5 g/dL 3.5-5.0 nmfx=7293) ALKALINE PHOSPHATASE 124 U/L 40-150 (BEAKER) (test sbhb=399) BILIRUBIN TOTAL (BEAKER) 2.2 mg/dL 0.2-1.2 (test cpvo=346) SODIUM (BEAKER) (test 125 meq/L 136-145 lizh=149) POTASSIUM (BEAKER) (test 4.4 meq/L 3.5-5.1 xbtc=013) CHLORIDE (BEAKER) (test 96 meq/L 98-107 jvcu=469) CO2 (BEAKER) (test 23 meq/L 22-29 kpqn=941) BLOOD UREA NITROGEN 27 mg/dL 7-21 (BEAKER) (test epqg=294) CREATININE (BEAKER) (test 1.74 mg/dL 0.57-1.25 spdz=456) GLUCOSE RANDOM (BEAKER) 112 mg/dL 70-105 (test ipmk=529) CALCIUM (BEAKER) (test 8.8 mg/dL 8.4-10.2 yicn=550) AST (SGOT) (BEAKER) (test 17 U/L 5-34 czbs=967) ALT (SGPT) (BEAKER) (test 7 U/L 6-55 ujnt=118) EGFR (BEAKER) (test 41 mL/min/1.73 sq m ESTIMATED GFR IS NOT xdxl=6532) ACCURATE CREATININE CLEARANCE IN PREDICTING GLOMERULAR FILTRATION RATE. ESTIMATED GFR IS NOT APPLICABLE FOR DIALYSIS PATIENTS. CALCIUM, [id number] 05:13:00 Test Item Value Reference Range Comments CALCIUM IONIZED (BEAKER) (test idlz=831) 1.10 mmol/L 1.12-1.27 PH, BLOOD (BEAKER) (test kpdq=1601) 7.44 CBC W/PLT COUNT & AUTO [id number] 05:02:00 Test Item Value Reference Range Comments WHITE BLOOD CELL COUNT (BEAKER) (test bfee=210) 3.2 K/ L 3.5-10.5 RED BLOOD CELL COUNT (BEAKER) (test xbue=876) 2.23 M/ L 4.63-6.08 HEMOGLOBIN (BEAKER) (test xwkh=646) 6.9 GM/DL 13.7-17.5 HEMATOCRIT (BEAKER) (test ptot=881) 20.8 % 40.1-51.0 MEAN CORPUSCULAR VOLUME (BEAKER) (test rbzt=608) 93.3 fL 79.0-92.2 MEAN CORPUSCULAR HEMOGLOBIN (BEAKER) (test 30.9 pg 25.7-32.2 egdu=695) MEAN CORPUSCULAR HEMOGLOBIN CONC (BEAKER) (test 33.2 GM/DL 32.3-36.5 bjqc=909) RED CELL DISTRIBUTION WIDTH (BEAKER) (test 14.6 % 11.6-14.4 fgdt=752) PLATELET COUNT (BEAKER) (test rwos=474) 43 K/CU MM 150-450 MEAN PLATELET VOLUME (BEAKER) (test fgrs=842) 9.3 fL 9.4-12.4 NUCLEATED RED BLOOD CELLS (BEAKER) (test 0 /100 WBC 0-0 itaj=206) NEUTROPHILS RELATIVE PERCENT (BEAKER) (test 58 % itlr=166) LYMPHOCYTES RELATIVE PERCENT (BEAKER) (test 17 % cxns=962) MONOCYTES RELATIVE PERCENT (BEAKER) (test 18 % rtap=636) EOSINOPHILS RELATIVE PERCENT (BEAKER) (test 5 % mrxq=574) BASOPHILS RELATIVE PERCENT (BEAKER) (test 1 % ejfe=042) NEUTROPHILS ABSOLUTE COUNT (BEAKER) (test 1.84 K/ L 1.78-5.38 elgh=557) LYMPHOCYTES ABSOLUTE COUNT (BEAKER) (test 0.54 K/ L 1.32-3.57 sdcu=897) MONOCYTES ABSOLUTE COUNT (BEAKER) (test ccdz=123) 0.56 K/ L 0.30-0.82 EOSINOPHILS ABSOLUTE COUNT (BEAKER) (test 0.15 K/ L 0.04-0.54 tpcn=907) BASOPHILS ABSOLUTE COUNT (BEAKER) (test prix=174) 0.02 K/ L 0.01-0.08 IMMATURE GRANULOCYTES-RELATIVE PERCENT (BEAKER) 1 % 0-1 (test gunj=7953) PROTHROMBIN [id number] 05:00:00 Test Item Value Reference Range Comments PROTIME (BEAKER) (test fklw=725) 22.7 seconds 11.7-14.7 INR (BEAKER) (test tqen=411) 2.0 <=5.9 RECOMMENDED COUMADIN/WARFARIN INR THERAPY RANGESSTANDARD DOSE: 2.0 - 3.0 Includes: PROPHYLAXIS forvenous thrombosis, systemic embolization; TREATMENT for venous thrombosis and/or pulmonary embolus.HIGH RISK: Target INR is 2.5-3.5 for patients with mechanical heart valves.POCT-GLUCOSE [id number] 22:18:00 Test Item Value Reference Range Comments POC-GLUCOSE METER (BEAKER) 194 mg/dL 70-110 TESTED AT [address] (test fxtq=8979) [facility] [address] POCT-GLUCOSE [id number] 17:33:00 Test Item Value Reference Range Comments POC-GLUCOSE METER (BEAKER) 160 mg/dL 70-110 TESTED AT [address] (test bicb=5883) [facility] [address] POCT-GLUCOSE [id number] 11:56:00 Test Item Value Reference Range Comments POC-GLUCOSE METER (BEAKER) 151 mg/dL 70-110 TESTED AT [facility] [address] [facility] (test qzxj=1653) [facility] [address] URINALYSIS W/ [id number] 09:52:00 Test Item Value Reference Range Comments COLOR (BEAKER) (test cvgw=968) Yellow CLARITY (BEAKER) (test wyrg=228) Clear SPECIFIC GRAVITY UA (BEAKER) (test 1.014 1.001-1.035 blzy=421) PH UA (BEAKER) (test rsnf=412) 5.5 5.0-8.0 PROTEIN UA (BEAKER) (test xwwb=801) Negative Negative GLUCOSE UA (BEAKER) (test rcmc=705) Negative Negative KETONES UA (BEAKER) (test juxv=172) Negative Negative BILIRUBIN UA (BEAKER) (test fbwc=904) Negative Negative BLOOD UA (BEAKER) (test kqoq=754) Negative Negative NITRITE UA (BEAKER) (test wcei=075) Negative Negative LEUKOCYTE ESTERASE UA (BEAKER) (test Negative Negative jeig=898) UROBILINOGEN UA (BEAKER) (test nbmc=421) 0.2 mg/dL 0.2-1.0 RBC UA (BEAKER) (test fgpk=408) 1 /HPF WBC UA (BEAKER) (test qdcc=181) 4 /HPF BACTERIA (BEAKER) (test bmfz=276) Rare MUCUS (BEAKER) (test mwsm=0162) Rare HYALINE CASTS (BEAKER) (test xske=268) 19 /LPF YEAST (BEAKER) (test omkh=8969) Rare SOURCE(BEAKER) (test arjq=6558) Urine, Clean Catch SODIUM, RANDOM [id number] 09:09:00 Test Item Value Reference Range Comments SODIUM URINE (BEAKER) (test pudn=874) < meq/L Reference Range: No NormalsCREATININE, RANDOM [id number] 09:04:00 Test Item Value Reference Range Comments CREATININE URINE (BEAKER) (test plcv=615) 149.6 mg/dL Reference Range: No NormalsPOCT-GLUCOSE [id number] 08:12:00 Test Item Value Reference Range Comments POC-GLUCOSE METER (BEAKER) 106 mg/dL 70-110 TESTED AT [facility] [address] (test kuro=4282) [place] [address] CBC W/PLT COUNT & AUTO [id number] 06:56:00 Test Item Value Reference Range Comments WHITE BLOOD CELL COUNT (BEAKER) (test fjwb=716) 4.5 K/ L 3.5-10.5 RED BLOOD CELL COUNT (BEAKER) (test zpjt=091) 2.22 M/ L 4.63-6.08 HEMOGLOBIN (BEAKER) (test pbjm=183) 7.0 GM/DL 13.7-17.5 HEMATOCRIT (BEAKER) (test hpok=481) 20.6 % 40.1-51.0 MEAN CORPUSCULAR VOLUME (BEAKER) (test ngxs=785) 92.8 fL 79.0-92.2 MEAN CORPUSCULAR HEMOGLOBIN (BEAKER) (test 31.5 pg 25.7-32.2 cprl=020) MEAN CORPUSCULAR HEMOGLOBIN CONC (BEAKER) (test 34.0 GM/DL 32.3-36.5 jnna=423) RED CELL DISTRIBUTION WIDTH (BEAKER) (test 14.7 % 11.6-14.4 krzf=961) PLATELET COUNT (BEAKER) (test gtod=085) 44 K/CU MM 150-450 MEAN PLATELET VOLUME (BEAKER) (test swem=667) 9.0 fL 9.4-12.4 NUCLEATED RED BLOOD CELLS (BEAKER) (test 0 /100 WBC 0-0 ozox=865) NEUTROPHILS RELATIVE PERCENT (BEAKER) (test 69 % dgdg=708) LYMPHOCYTES RELATIVE PERCENT (BEAKER) (test 12 % bajk=945) MONOCYTES RELATIVE PERCENT (BEAKER) (test 14 % ccdv=639) EOSINOPHILS RELATIVE PERCENT (BEAKER) (test 4 % hsyb=072) BASOPHILS RELATIVE PERCENT (BEAKER) (test 0 % fpli=324) NEUTROPHILS ABSOLUTE COUNT (BEAKER) (test 3.12 K/ L 1.78-5.38 ahnb=751) LYMPHOCYTES ABSOLUTE COUNT (BEAKER) (test 0.55 K/ L 1.32-3.57 quff=253) MONOCYTES ABSOLUTE COUNT (BEAKER) (test auch=829) 0.62 K/ L 0.30-0.82 EOSINOPHILS ABSOLUTE COUNT (BEAKER) (test 0.18 K/ L 0.04-0.54 cbur=919) BASOPHILS ABSOLUTE COUNT (BEAKER) (test zwdp=206) 0.00 K/ L 0.01-0.08 IMMATURE GRANULOCYTES-RELATIVE PERCENT (BEAKER) 1 % 0-1 (test prec=3597) [id number] 06:41:00 Test Item Value Reference Range Comments PHOSPHORUS (BEAKER) (test qctq=184) 2.7 mg/dL 2.3-4.7 [id number] 06:41:00 Test Item Value Reference Range Comments MAGNESIUM (BEAKER) (test zjoc=415) 2.0 mg/dL 1.6-2.6 COMPREHENSIVE METABOLIC [id number] 06:41:00 Test Item Value Reference Range Comments TOTAL PROTEIN (BEAKER) 4.9 gm/dL 6.0-8.3 (test dkft=541) ALBUMIN (BEAKER) (test 3.1 g/dL 3.5-5.0 tfcw=5356) ALKALINE PHOSPHATASE 148 U/L 40-150 (BEAKER) (test ozwr=437) BILIRUBIN TOTAL (BEAKER) 1.9 mg/dL 0.2-1.2 (test hoeh=232) SODIUM (BEAKER) (test 123 meq/L 136-145 emtw=057) POTASSIUM (BEAKER) (test 3.9 meq/L 3.5-5.1 nbis=520) CHLORIDE (BEAKER) (test 94 meq/L 98-107 evju=600) CO2 (BEAKER) (test 22 meq/L 22-29 prkj=741) BLOOD UREA NITROGEN 24 mg/dL 7-21 (BEAKER) (test bzvm=697) CREATININE (BEAKER) (test 1.55 mg/dL 0.57-1.25 swcq=831) GLUCOSE RANDOM (BEAKER) 95 mg/dL 70-105 (test acgl=858) CALCIUM (BEAKER) (test 8.5 mg/dL 8.4-10.2 fgqq=382) AST (SGOT) (BEAKER) (test 18 U/L 5-34 umlt=415) ALT (SGPT) (BEAKER) (test 10 U/L 6-55 jsjs=054) EGFR (BEAKER) (test 47 mL/min/1.73 sq m ESTIMATED GFR IS NOT gfnb=5347) ACCURATE CREATININE CLEARANCE IN PREDICTING GLOMERULAR FILTRATION RATE. ESTIMATED GFR IS NOT APPLICABLE FOR DIALYSIS PATIENTS. BILIRUBIN, [id number] 06:41:00 Test Item Value Reference Range Comments BILIRUBIN DIRECT (BEAKER) (test udei=433) 1.3 mg/dL 0.1-0.5 PROTHROMBIN [id number] 06:26:00 Test Item Value Reference Range Comments PROTIME (BEAKER) (test qhfw=275) 23.3 seconds 11.7-14.7 INR (BEAKER) (test xlni=867) 2.1 <=5.9 RECOMMENDED COUMADIN/WARFARIN INR THERAPY RANGESSTANDARD DOSE: 2.0 - 3.0 Includes: PROPHYLAXIS forvenous thrombosis, systemic embolization; TREATMENT for venous thrombosis and/or pulmonary embolus.HIGH RISK: Target INR is 2.5-3.5 for patients with mechanical heart valves.POCT-GLUCOSE [id number] 22:17:00 Test Item Value Reference Range Comments POC-GLUCOSE METER (BEAKER) 136 mg/dL 70-110 TESTED AT [address] (test kmgd=3608) [place] [address] POCT-GLUCOSE [id number] 18:08:00 Test Item Value Reference Range Comments POC-GLUCOSE METER (BEAKER) 126 mg/dL 70-110 TESTED AT [address] (test sgvw=0889) [place] [address] U/S, [id number] 17:47:00Reason for exam:->ascitesFINAL REPORT Indication: Ascites. Technique: Ultrasound guided paracentesis. Findings:Preliminary ultrasound confirms ascites. A safe window was identified in the left lower quadrant. The procedure was explained to the patient and informed consent was signed. The skin was markedand prepped in standard sterile fashion. Lidocaine was used for local anesthesia. A 5 [place] needle catheter system was advanced into the peritoneal space. 5500 cc slightly cloudy yellow fluid was taken off. Patient tolerated the procedure well. Impression: Ultrasound guided paracentesis. Signed: Aristeo Xiong [facility] Verified Date/Time: 08/31/2018 17:47:54 Reading Location: [address] Ultrasound Reading Room POCT-GLUCOSE [id number] 11:52:00 Test Item Value Reference Range Comments POC-GLUCOSE METER (BEAKER) 151 mg/dL 70-110 TESTED AT [place] [id number] [facility] (test xztn=8793) [facility] [address] POCT-GLUCOSE [id number] 08:19:00 Test Item Value Reference Range Comments POC-GLUCOSE METER (BEAKER) 129 mg/dL 70-110 TESTED AT [address] (test zegp=0834) [facility] [address] [id number] 05:12:00 Test Item Value Reference Range Comments PHOSPHORUS (BEAKER) (test rcpg=581) 2.9 mg/dL 2.3-4.7 [id number] 05:12:00 Test Item Value Reference Range Comments MAGNESIUM (BEAKER) (test ywkw=165) 2.0 mg/dL 1.6-2.6 COMPREHENSIVE METABOLIC [id number] 05:12:00 Test Item Value Reference Range Comments TOTAL PROTEIN (BEAKER) 5.4 gm/dL 6.0-8.3 (test xwda=005) ALBUMIN (BEAKER) (test 3.2 g/dL 3.5-5.0 klsa=6231) ALKALINE PHOSPHATASE 159 U/L 40-150 (BEAKER) (test tovx=005) BILIRUBIN TOTAL (BEAKER) 1.8 mg/dL 0.2-1.2 (test iyvr=151) SODIUM (BEAKER) (test 125 meq/L 136-145 pvqh=980) POTASSIUM (BEAKER) (test 4.3 meq/L 3.5-5.1 sasy=539) CHLORIDE (BEAKER) (test 97 meq/L 98-107 ixhj=953) CO2 (BEAKER) (test 22 meq/L 22-29 suum=215) BLOOD UREA NITROGEN 21 mg/dL 7-21 (BEAKER) (test mgtw=490) CREATININE (BEAKER) (test 1.34 mg/dL 0.57-1.25 othz=585) GLUCOSE RANDOM (BEAKER) 113 mg/dL 70-105 (test ezix=472) CALCIUM (BEAKER) (test 8.8 mg/dL 8.4-10.2 umpj=955) AST (SGOT) (BEAKER) (test 22 U/L 5-34 xpxm=893) ALT (SGPT) (BEAKER) (test 11 U/L 6-55 xfoz=115) EGFR (BEAKER) (test 56 mL/min/1.73 sq m ESTIMATED GFR IS NOT cgdj=3475) ACCURATE CREATININE CLEARANCE IN PREDICTING GLOMERULAR FILTRATION RATE. ESTIMATED GFR IS NOT APPLICABLE FOR DIALYSIS PATIENTS. BILIRUBIN, [id number] 05:12:00 Test Item Value Reference Range Comments BILIRUBIN DIRECT (BEAKER) (test gnnk=021) 1.2 mg/dL 0.1-0.5 PROTHROMBIN [id number] 04:48:00 Test Item Value Reference Range Comments PROTIME (BEAKER) (test avwo=509) 22.3 seconds 11.7-14.7 INR (BEAKER) (test tmmd=945) 2.0 <=5.9 RECOMMENDED COUMADIN/WARFARIN INR THERAPY RANGESSTANDARD DOSE: 2.0 - 3.0 Includes: PROPHYLAXIS forvenous thrombosis, systemic embolization; TREATMENT for venous thrombosis and/or pulmonary embolus.HIGH RISK: Target INR is 2.5-3.5 for patients with mechanical heart valves.CBC W/PLT COUNT & AUTO [id number] 04:33:00 Test Item Value Reference Range Comments WHITE BLOOD CELL COUNT (BEAKER) (test glaa=712) 5.5 K/ L 3.5-10.5 RED BLOOD CELL COUNT (BEAKER) (test nnhn=627) 2.58 M/ L 4.63-6.08 HEMOGLOBIN (BEAKER) (test vsms=658) 7.9 GM/DL 13.7-17.5 HEMATOCRIT (BEAKER) (test sbry=908) 24.3 % 40.1-51.0 MEAN CORPUSCULAR VOLUME (BEAKER) (test kfor=003) 94.2 fL 79.0-92.2 MEAN CORPUSCULAR HEMOGLOBIN (BEAKER) (test 30.6 pg 25.7-32.2 kqfd=996) MEAN CORPUSCULAR HEMOGLOBIN CONC (BEAKER) (test 32.5 GM/DL 32.3-36.5 ybdc=095) RED CELL DISTRIBUTION WIDTH (BEAKER) (test 15.0 % 11.6-14.4 exth=331) PLATELET COUNT (BEAKER) (test mtoo=718) 57 K/CU MM 150-450 MEAN PLATELET VOLUME (BEAKER) (test mikf=408) 9.2 fL 9.4-12.4 NUCLEATED RED BLOOD CELLS (BEAKER) (test 0 /100 WBC 0-0 fkol=899) NEUTROPHILS RELATIVE PERCENT (BEAKER) (test 70 % wqws=353) LYMPHOCYTES RELATIVE PERCENT (BEAKER) (test 12 % pucr=113) MONOCYTES RELATIVE PERCENT (BEAKER) (test 14 % ksxe=896) EOSINOPHILS RELATIVE PERCENT (BEAKER) (test 4 % clbo=008) BASOPHILS RELATIVE PERCENT (BEAKER) (test 0 % jkhc=777) NEUTROPHILS ABSOLUTE COUNT (BEAKER) (test 3.85 K/ L 1.78-5.38 sdyl=285) LYMPHOCYTES ABSOLUTE COUNT (BEAKER) (test 0.67 K/ L 1.32-3.57 apsm=724) MONOCYTES ABSOLUTE COUNT (BEAKER) (test ehbs=073) 0.75 K/ L 0.30-0.82 EOSINOPHILS ABSOLUTE COUNT (BEAKER) (test 0.22 K/ L 0.04-0.54 qlhb=963) BASOPHILS ABSOLUTE COUNT (BEAKER) (test ksyx=568) 0.01 K/ L 0.01-0.08 IMMATURE GRANULOCYTES-RELATIVE PERCENT (BEAKER) 1 % 0-1 (test jkkg=5079) BLOOD [id number] 23:01:00 Test Item Value Reference Range Comments CULTURE (BEAKER) (test zuns=5443) No growth in 5 days POCT-GLUCOSE [id number] 22:15:00 Test Item Value Reference Range Comments POC-GLUCOSE METER (BEAKER) 133 mg/dL 70-110 TESTED AT [address] (test lmyx=5898) [facility] [address] POCT-GLUCOSE [id number] 17:42:00 Test Item Value Reference Range Comments POC-GLUCOSE METER (BEAKER) 139 mg/dL 70-110 TESTED AT [address] (test zcet=5451) [place] [id number] POCT-GLUCOSE [id number] 12:02:00 Test Item Value Reference Range Comments POC-GLUCOSE METER (BEAKER) 152 mg/dL 70-110 TESTED AT [address] (test wlbh=0410) [facility] [address] POCT-GLUCOSE [id number] 09:04:00 Test Item Value Reference Range Comments POC-GLUCOSE METER (BEAKER) 130 mg/dL 70-110 TESTED AT [facility] [address] (test qlfb=7436) [place] [address] CALCIUM, [id number] 07:27:00 Test Item Value Reference Range Comments CALCIUM IONIZED (BEAKER) (test xkyx=451) 1.10 mmol/L 1.12-1.27 PH, BLOOD (BEAKER) (test oqmz=5768) 7.42 [id number] 06:46:00 Test Item Value Reference Range Comments PHOSPHORUS (BEAKER) (test dtig=391) 3.0 mg/dL 2.3-4.7 [id number] 06:46:00 Test Item Value Reference Range Comments MAGNESIUM (BEAKER) (test xeuy=635) 2.0 mg/dL 1.6-2.6 COMPREHENSIVE METABOLIC [id number] 06:46:00 Test Item Value Reference Range Comments TOTAL PROTEIN (BEAKER) 4.9 gm/dL 6.0-8.3 (test axqw=914) ALBUMIN (BEAKER) (test 3.0 g/dL 3.5-5.0 hmpp=0291) ALKALINE PHOSPHATASE 145 U/L 40-150 (BEAKER) (test jlmu=705) BILIRUBIN TOTAL (BEAKER) 1.9 mg/dL 0.2-1.2 (test egwz=282) SODIUM (BEAKER) (test 127 meq/L 136-145 kxlz=021) POTASSIUM (BEAKER) (test 3.7 meq/L 3.5-5.1 srhz=275) CHLORIDE (BEAKER) (test 99 meq/L 98-107 cpor=890) CO2 (BEAKER) (test 21 meq/L 22-29 wlpi=103) BLOOD UREA NITROGEN 20 mg/dL 7-21 (BEAKER) (test frbs=052) CREATININE (BEAKER) (test 1.21 mg/dL 0.57-1.25 aipg=515) GLUCOSE RANDOM (BEAKER) 108 mg/dL 70-105 (test gpga=410) CALCIUM (BEAKER) (test 8.9 mg/dL 8.4-10.2 ersy=590) AST (SGOT) (BEAKER) (test 22 U/L 5-34 ayvh=626) ALT (SGPT) (BEAKER) (test 9 U/L 6-55 gopd=954) EGFR (BEAKER) (test 63 mL/min/1.73 sq m ESTIMATED GFR IS NOT gevx=5871) ACCURATE CREATININE CLEARANCE IN PREDICTING GLOMERULAR FILTRATION RATE. ESTIMATED GFR IS NOT APPLICABLE FOR DIALYSIS PATIENTS. BASIC METABOLIC [id number] 06:46:00 Test Item Value Reference Range Comments SODIUM (BEAKER) (test 127 meq/L 136-145 xczi=322) POTASSIUM (BEAKER) (test 3.7 meq/L 3.5-5.1 zfzu=881) CHLORIDE (BEAKER) (test 99 meq/L 98-107 fqbk=648) CO2 (BEAKER) (test 21 meq/L 22-29 dneo=320) BLOOD UREA NITROGEN 20 mg/dL 7-21 (BEAKER) (test resj=493) CREATININE (BEAKER) (test 1.21 mg/dL 0.57-1.25 zbvh=120) GLUCOSE RANDOM (BEAKER) 108 mg/dL 70-105 (test tepp=283) CALCIUM (BEAKER) (test 8.9 mg/dL 8.4-10.2 rxxc=507) EGFR (BEAKER) (test 63 mL/min/1.73 sq m ESTIMATED GFR IS NOT lctv=8048) ACCURATE CREATININE CLEARANCE IN PREDICTING GLOMERULAR FILTRATION RATE. ESTIMATED GFR IS NOT APPLICABLE FOR DIALYSIS PATIENTS. BILIRUBIN, [id number] 06:46:00 Test Item Value Reference Range Comments BILIRUBIN DIRECT (BEAKER) (test ygmo=791) 1.2 mg/dL 0.1-0.5 CBC W/PLT COUNT & AUTO [id number] 06:30:00 Test Item Value Reference Range Comments WHITE BLOOD CELL COUNT (BEAKER) (test kvda=900) 3.7 K/ L 3.5-10.5 RED BLOOD CELL COUNT (BEAKER) (test gufj=658) 2.35 M/ L 4.63-6.08 HEMOGLOBIN (BEAKER) (test uqkl=625) 7.4 GM/DL 13.7-17.5 HEMATOCRIT (BEAKER) (test bmad=961) 22.1 % 40.1-51.0 MEAN CORPUSCULAR VOLUME (BEAKER) (test nwwk=369) 94.0 fL 79.0-92.2 MEAN CORPUSCULAR HEMOGLOBIN (BEAKER) (test 31.5 pg 25.7-32.2 wfvw=183) MEAN CORPUSCULAR HEMOGLOBIN CONC (BEAKER) (test 33.5 GM/DL 32.3-36.5 nkuo=696) RED CELL DISTRIBUTION WIDTH (BEAKER) (test 14.8 % 11.6-14.4 sboc=953) PLATELET COUNT (BEAKER) (test lkvm=875) 45 K/CU MM 150-450 MEAN PLATELET VOLUME (BEAKER) (test qzch=027) 8.8 fL 9.4-12.4 NUCLEATED RED BLOOD CELLS (BEAKER) (test 0 /100 WBC 0-0 ldbr=937) NEUTROPHILS RELATIVE PERCENT (BEAKER) (test 61 % nudo=220) LYMPHOCYTES RELATIVE PERCENT (BEAKER) (test 14 % ormf=243) MONOCYTES RELATIVE PERCENT (BEAKER) (test 18 % omec=419) EOSINOPHILS RELATIVE PERCENT (BEAKER) (test 6 % wksj=715) BASOPHILS RELATIVE PERCENT (BEAKER) (test 0 % lucj=558) NEUTROPHILS ABSOLUTE COUNT (BEAKER) (test 2.25 K/ L 1.78-5.38 adfa=725) LYMPHOCYTES ABSOLUTE COUNT (BEAKER) (test 0.53 K/ L 1.32-3.57 bnjv=361) MONOCYTES ABSOLUTE COUNT (BEAKER) (test qrst=454) 0.67 K/ L 0.30-0.82 EOSINOPHILS ABSOLUTE COUNT (BEAKER) (test 0.23 K/ L 0.04-0.54 qnhd=205) BASOPHILS ABSOLUTE COUNT (BEAKER) (test jbxo=914) 0.01 K/ L 0.01-0.08 IMMATURE GRANULOCYTES-RELATIVE PERCENT (BEAKER) 1 % 0-1 (test ixtz=8296) PROTHROMBIN [id number] 06:07:00 Test Item Value Reference Range Comments PROTIME (BEAKER) (test keuy=373) 21.4 seconds 11.7-14.7 INR (BEAKER) (test kwgw=231) 1.9 <=5.9 RECOMMENDED COUMADIN/WARFARIN INR THERAPY RANGESSTANDARD DOSE: 2.0 - 3.0 Includes: PROPHYLAXIS forvenous thrombosis, systemic embolization; TREATMENT for venous thrombosis and/or pulmonary embolus.HIGH RISK: Target INR is 2.5-3.5 for patients with mechanical heart valves.POCT-GLUCOSE [id number] 23:37:00 Test Item Value Reference Range Comments POC-GLUCOSE METER (BEAKER) 154 mg/dL 70-110 TESTED AT [address] (test ybiz=4262) [place] [address] BASIC METABOLIC [id number] 20:17:00 Test Item Value Reference Range Comments SODIUM (BEAKER) (test 125 meq/L 136-145 ozeq=028) POTASSIUM (BEAKER) (test 4.0 meq/L 3.5-5.1 phix=522) CHLORIDE (BEAKER) (test 94 meq/L 98-107 ndhl=191) CO2 (BEAKER) (test 25 meq/L 22-29 wfjw=558) BLOOD UREA NITROGEN 20 mg/dL 7-21 (BEAKER) (test dicd=853) CREATININE (BEAKER) (test 1.34 mg/dL 0.57-1.25 xccc=813) GLUCOSE RANDOM (BEAKER) 115 mg/dL 70-105 (test lxqe=311) CALCIUM (BEAKER) (test 8.9 mg/dL 8.4-10.2 yuuz=039) EGFR (BEAKER) (test 56 mL/min/1.73 sq m ESTIMATED GFR IS NOT xbjw=4764) ACCURATE CREATININE CLEARANCE IN PREDICTING GLOMERULAR FILTRATION RATE. ESTIMATED GFR IS NOT APPLICABLE FOR DIALYSIS PATIENTS. POCT-GLUCOSE [id number] 17:59:00 Test Item Value Reference Range Comments POC-GLUCOSE METER (BEAKER) 161 mg/dL 70-110 TESTED AT [address] (test nopq=9093) [place] [address] BODY FLUID CULTURE + GRAM [id number] 13:31:00 Test Item Value Reference Range Comments CULTURE (BEAKER) (test tbhf=3096) No growth GRAM STAIN RESULT (BEAKER) (test No organisms seen cibj=2472) GRAM STAIN RESULT (BEAKER) (test No White blood cells seen liup=59394) POCT-GLUCOSE [id number] 12:31:00 Test Item Value Reference Range Comments POC-GLUCOSE METER (BEAKER) 114 mg/dL 70-110 TESTED AT [address] (test bcud=1781) [place] [address] BASIC METABOLIC [id number] 11:33:00 Test Item Value Reference Range Comments SODIUM (BEAKER) (test 124 meq/L 136-145 kfvr=022) POTASSIUM (BEAKER) (test 4.1 meq/L 3.5-5.1 leqg=258) CHLORIDE (BEAKER) (test 94 meq/L 98-107 wjmk=593) CO2 (BEAKER) (test 23 meq/L 22-29 jkgx=096) BLOOD UREA NITROGEN 20 mg/dL 7-21 (BEAKER) (test njzg=425) CREATININE (BEAKER) (test 1.22 mg/dL 0.57-1.25 hdxi=193) GLUCOSE RANDOM (BEAKER) 94 mg/dL 70-105 (test xlkt=769) CALCIUM (BEAKER) (test 8.8 mg/dL 8.4-10.2 kjxc=075) EGFR (BEAKER) (test 62 mL/min/1.73 sq m ESTIMATED GFR IS NOT ible=9620) ACCURATE CREATININE CLEARANCE IN PREDICTING GLOMERULAR FILTRATION RATE. ESTIMATED GFR IS NOT APPLICABLE FOR DIALYSIS PATIENTS. [id number] 09:24:00 Test Item Value Reference Range Comments FERRITIN (BEAKER) (test yvbg=450) 1685 ng/mL 5-275 POCT-GLUCOSE [id number] 07:59:00 Test Item Value Reference Range Comments POC-GLUCOSE METER (BEAKER) 225 mg/dL 70-110 TESTED AT [facility] [address] [facility] (test zppa=2752) [facility] [address] IRON, TIBC, % SAT. (WITHOUT FERRITIN)2018-08-29 07:54:00 Test Item Value Reference Range Comments IRON (BEAKER) (test dfbd=432) 98 ug/dL 40-160 TOTAL IRON BINDING CAPACITY (BEAKER) (test 90 ug/dL 250-450 qtlg=795) IRON % SATURATION (2) (BEAKER) (test ppuh=1994) 109 % 20-55 CALCIUM, [id number] 07:13:00 Test Item Value Reference Range Comments CALCIUM IONIZED (BEAKER) (test qgmr=741) 1.10 mmol/L 1.12-1.27 PH, BLOOD (BEAKER) (test wkxa=0230) 7.37 [id number] 06:32:00 Test Item Value Reference Range Comments PHOSPHORUS (BEAKER) (test gtmq=258) 2.6 mg/dL 2.3-4.7 [id number] 06:32:00 Test Item Value Reference Range Comments MAGNESIUM (BEAKER) (test bdic=699) 1.8 mg/dL 1.6-2.6 COMPREHENSIVE METABOLIC [id number] 06:32:00 Test Item Value Reference Range Comments TOTAL PROTEIN (BEAKER) 5.0 gm/dL 6.0-8.3 (test fifk=032) ALBUMIN (BEAKER) (test 3.2 g/dL 3.5-5.0 yxhd=0081) ALKALINE PHOSPHATASE 138 U/L 40-150 (BEAKER) (test dguf=547) BILIRUBIN TOTAL (BEAKER) 2.1 mg/dL 0.2-1.2 (test gpdt=847) SODIUM (BEAKER) (test 126 meq/L 136-145 egyi=024) POTASSIUM (BEAKER) (test 4.0 meq/L 3.5-5.1 swrr=477) CHLORIDE (BEAKER) (test 95 meq/L 98-107 xdty=817) CO2 (BEAKER) (test 23 meq/L 22-29 zsft=604) BLOOD UREA NITROGEN 21 mg/dL 7-21 (BEAKER) (test zorf=707) CREATININE (BEAKER) (test 1.15 mg/dL 0.57-1.25 vftg=489) GLUCOSE RANDOM (BEAKER) 110 mg/dL 70-105 (test xuur=376) CALCIUM (BEAKER) (test 8.8 mg/dL 8.4-10.2 cyxn=183) AST (SGOT) (BEAKER) (test 22 U/L 5-34 pjep=987) ALT (SGPT) (BEAKER) (test 11 U/L 6-55 ccao=248) EGFR (BEAKER) (test 67 mL/min/1.73 sq m ESTIMATED GFR IS NOT nlaw=5781) ACCURATE CREATININE CLEARANCE IN PREDICTING GLOMERULAR FILTRATION RATE. ESTIMATED GFR IS NOT APPLICABLE FOR DIALYSIS PATIENTS. BASIC METABOLIC [id number] 06:32:00 Test Item Value Reference Range Comments SODIUM (BEAKER) (test 126 meq/L 136-145 nxjd=175) POTASSIUM (BEAKER) (test 4.0 meq/L 3.5-5.1 eljf=268) CHLORIDE (BEAKER) (test 95 meq/L 98-107 yoet=266) CO2 (BEAKER) (test 23 meq/L 22-29 amxx=219) BLOOD UREA NITROGEN 21 mg/dL 7-21 (BEAKER) (test vmbo=353) CREATININE (BEAKER) (test 1.15 mg/dL 0.57-1.25 ianl=584) GLUCOSE RANDOM (BEAKER) 110 mg/dL 70-105 (test niox=592) CALCIUM (BEAKER) (test 8.8 mg/dL 8.4-10.2 zjhj=928) EGFR (BEAKER) (test 67 mL/min/1.73 sq m ESTIMATED GFR IS NOT soci=9974) ACCURATE CREATININE CLEARANCE IN PREDICTING GLOMERULAR FILTRATION RATE. ESTIMATED GFR IS NOT APPLICABLE FOR DIALYSIS PATIENTS. BILIRUBIN, [id number] 06:32:00 Test Item Value Reference Range Comments BILIRUBIN DIRECT (BEAKER) (test jmed=871) 1.4 mg/dL 0.1-0.5 PROTHROMBIN [id number] 05:44:00 Test Item Value Reference Range Comments PROTIME (BEAKER) (test twpp=431) 20.9 seconds 11.7-14.7 INR (BEAKER) (test aczl=692) 1.8 <=5.9 RECOMMENDED COUMADIN/WARFARIN INR THERAPY RANGESSTANDARD DOSE: 2.0 - 3.0 Includes: PROPHYLAXIS forvenous thrombosis, systemic embolization; TREATMENT for venous thrombosis and/or pulmonary embolus.HIGH RISK: Target INR is 2.5-3.5 for patients with mechanical heart valves.CBC W/PLT COUNT & AUTO [id number] 05:43:00 Test Item Value Reference Range Comments WHITE BLOOD CELL COUNT (BEAKER) (test nqte=778) 4.0 K/ L 3.5-10.5 RED BLOOD CELL COUNT (BEAKER) (test fkpy=408) 2.30 M/ L 4.63-6.08 HEMOGLOBIN (BEAKER) (test tbmd=952) 7.5 GM/DL 13.7-17.5 HEMATOCRIT (BEAKER) (test zvyl=165) 22.0 % 40.1-51.0 MEAN CORPUSCULAR VOLUME (BEAKER) (test pynn=870) 95.7 fL 79.0-92.2 MEAN CORPUSCULAR HEMOGLOBIN (BEAKER) (test 32.6 pg 25.7-32.2 coqq=794) MEAN CORPUSCULAR HEMOGLOBIN CONC (BEAKER) (test 34.1 GM/DL 32.3-36.5 hfbk=505) RED CELL DISTRIBUTION WIDTH (BEAKER) (test 14.8 % 11.6-14.4 frvu=676) PLATELET COUNT (BEAKER) (test uwcp=495) 51 K/CU MM 150-450 MEAN PLATELET VOLUME (BEAKER) (test gyfx=409) 8.8 fL 9.4-12.4 NUCLEATED RED BLOOD CELLS (BEAKER) (test 0 /100 WBC 0-0 kutx=568) NEUTROPHILS RELATIVE PERCENT (BEAKER) (test 61 % zgir=801) LYMPHOCYTES RELATIVE PERCENT (BEAKER) (test 12 % eehi=136) MONOCYTES RELATIVE PERCENT (BEAKER) (test 19 % qzzq=286) EOSINOPHILS RELATIVE PERCENT (BEAKER) (test 7 % blik=448) BASOPHILS RELATIVE PERCENT (BEAKER) (test 0 % bmun=646) NEUTROPHILS ABSOLUTE COUNT (BEAKER) (test 2.43 K/ L 1.78-5.38 ivqz=574) LYMPHOCYTES ABSOLUTE COUNT (BEAKER) (test 0.49 K/ L 1.32-3.57 ekbq=375) MONOCYTES ABSOLUTE COUNT (BEAKER) (test banz=655) 0.75 K/ L 0.30-0.82 EOSINOPHILS ABSOLUTE COUNT (BEAKER) (test 0.29 K/ L 0.04-0.54 alcy=623) BASOPHILS ABSOLUTE COUNT (BEAKER) (test suvr=214) 0.00 K/ L 0.01-0.08 IMMATURE GRANULOCYTES-RELATIVE PERCENT (BEAKER) 1 % 0-1 (test qlia=7687) POCT-GLUCOSE [id number] 22:23:00 Test Item Value Reference Range Comments POC-GLUCOSE METER (BEAKER) 166 mg/dL 70-110 TESTED AT [address] (test jbxb=0665) [facility] [address] POCT-GLUCOSE [id number] 16:12:00 Test Item Value Reference Range Comments POC-GLUCOSE METER (BEAKER) 110 mg/dL 70-110 TESTED AT [address] (test jgqv=7322) [facility] [id number] PTH, [id number] 15:57:00 Test Item Value Reference Range Comments PARATHYROID HORMONE INTACT (BEAKER) (test 26.2 pg/mL 8.5-72.5 reik=489) GAMMA GLUTAMYL TRANSFERASE (GGT)2018-08-28 15:51:00 Test Item Value Reference Range Comments GAMMA GLUTAMYL TRANSFERASE (BEAKER) (test zlcn=501) 11 U/L 9-64 BASIC METABOLIC [id number] 15:49:00 Test Item Value Reference Range Comments SODIUM (BEAKER) (test 127 meq/L 136-145 zvmh=702) POTASSIUM (BEAKER) (test 3.6 meq/L 3.5-5.1 dnzz=946) CHLORIDE (BEAKER) (test 97 meq/L 98-107 fdca=206) CO2 (BEAKER) (test 23 meq/L 22-29 thxz=409) BLOOD UREA NITROGEN 20 mg/dL 7-21 (BEAKER) (test elwi=715) CREATININE (BEAKER) (test 1.19 mg/dL 0.57-1.25 wcav=547) GLUCOSE RANDOM (BEAKER) 123 mg/dL 70-105 (test zrdg=798) CALCIUM (BEAKER) (test 8.6 mg/dL 8.4-10.2 yhqm=036) EGFR (BEAKER) (test 64 mL/min/1.73 sq m ESTIMATED GFR IS NOT flxw=2162) ACCURATE CREATININE CLEARANCE IN PREDICTING GLOMERULAR FILTRATION RATE. ESTIMATED GFR IS NOT APPLICABLE FOR DIALYSIS PATIENTS. VITAMIN D, [id number] 15:24:00 Test Item Value Reference Range Comments VITAMIN D 25-OH (BEAKER) (test emoc=1988) 11.2 ng/mL 6.6-49.9 Effective 08/06/2017: Reference Range ChangeNew: 6.6-49.9 ng/mL Previous: 13.0 -47.8 ng/mLRecommended Vitamin D Target Range: 30.0-40.0 ng/mLPOCT-GLUCOSE [id number] 12:35:00 Test Item Value Reference Range Comments POC-GLUCOSE METER (BEAKER) 138 mg/dL 70-110 TESTED AT [facility] [address] [facility] (test ojen=5901) [facility] [address] BASIC METABOLIC [id number] 09:59:00 Test Item Value Reference Range Comments SODIUM (BEAKER) (test 130 meq/L 136-145 cfrm=298) POTASSIUM (BEAKER) (test 4.1 meq/L 3.5-5.1 half=178) CHLORIDE (BEAKER) (test 99 meq/L 98-107 uzej=188) CO2 (BEAKER) (test 24 meq/L 22-29 uvbx=738) BLOOD UREA NITROGEN 22 mg/dL 7-21 (BEAKER) (test ufhf=991) CREATININE (BEAKER) (test 1.31 mg/dL 0.57-1.25 obww=093) GLUCOSE RANDOM (BEAKER) 121 mg/dL 70-105 (test cevs=428) CALCIUM (BEAKER) (test 9.4 mg/dL 8.4-10.2 jcuw=495) EGFR (BEAKER) (test 57 mL/min/1.73 sq m ESTIMATED GFR IS NOT fxjs=9433) ACCURATE CREATININE CLEARANCE IN PREDICTING GLOMERULAR FILTRATION RATE. ESTIMATED GFR IS NOT APPLICABLE FOR DIALYSIS PATIENTS. POCT-GLUCOSE [id number] 08:17:00 Test Item Value Reference Range Comments POC-GLUCOSE METER (BEAKER) 131 mg/dL 70-110 TESTED AT [address] (test duff=1421) [facility] [address] CALCIUM, [id number] 06:01:00 Test Item Value Reference Range Comments CALCIUM IONIZED (BEAKER) (test gnmr=537) 1.06 mmol/L 1.12-1.27 PH, BLOOD (BEAKER) (test wost=8074) 7.42 [id number] 05:52:00 Test Item Value Reference Range Comments PHOSPHORUS (BEAKER) (test cvds=908) 3.1 mg/dL 2.3-4.7 [id number] 05:52:00 Test Item Value Reference Range Comments MAGNESIUM (BEAKER) (test mvne=605) 2.3 mg/dL 1.6-2.6 BASIC METABOLIC [id number] 05:52:00 Test Item Value Reference Range Comments SODIUM (BEAKER) (test 130 meq/L 136-145 xaim=141) POTASSIUM (BEAKER) (test 3.8 meq/L 3.5-5.1 elve=049) CHLORIDE (BEAKER) (test 98 meq/L 98-107 wdrj=076) CO2 (BEAKER) (test 22 meq/L 22-29 kazf=981) BLOOD UREA NITROGEN 22 mg/dL 7-21 (BEAKER) (test ests=183) CREATININE (BEAKER) (test 1.37 mg/dL 0.57-1.25 lgnx=456) GLUCOSE RANDOM (BEAKER) 118 mg/dL 70-105 (test muva=202) CALCIUM (BEAKER) (test 9.6 mg/dL 8.4-10.2 bjfo=800) EGFR (BEAKER) (test 54 mL/min/1.73 sq m ESTIMATED GFR IS NOT dzww=4312) ACCURATE CREATININE CLEARANCE IN PREDICTING GLOMERULAR FILTRATION RATE. ESTIMATED GFR IS NOT APPLICABLE FOR DIALYSIS PATIENTS. Specimen slightly ictericCOMPREHENSIVE METABOLIC [id number] 05:52:00 Test Item Value Reference Range Comments TOTAL PROTEIN (BEAKER) 5.6 gm/dL 6.0-8.3 (test gwvp=632) ALBUMIN (BEAKER) (test 3.6 g/dL 3.5-5.0 ezui=7466) ALKALINE PHOSPHATASE 146 U/L 40-150 (BEAKER) (test wxpx=173) BILIRUBIN TOTAL (BEAKER) 2.5 mg/dL 0.2-1.2 (test urgm=721) SODIUM (BEAKER) (test 130 meq/L 136-145 uahg=827) POTASSIUM (BEAKER) (test 3.8 meq/L 3.5-5.1 qtml=561) CHLORIDE (BEAKER) (test 98 meq/L 98-107 ogua=780) CO2 (BEAKER) (test 22 meq/L 22-29 hobr=984) BLOOD UREA NITROGEN 22 mg/dL 7-21 (BEAKER) (test gqyy=145) CREATININE (BEAKER) (test 1.37 mg/dL 0.57-1.25 wpgp=299) GLUCOSE RANDOM (BEAKER) 118 mg/dL 70-105 (test hqqk=348) CALCIUM (BEAKER) (test 9.6 mg/dL 8.4-10.2 gznr=138) AST (SGOT) (BEAKER) (test 25 U/L 5-34 oufy=812) ALT (SGPT) (BEAKER) (test 10 U/L 6-55 uojt=511) EGFR (BEAKER) (test 54 mL/min/1.73 sq m ESTIMATED GFR IS NOT ybto=2591) ACCURATE CREATININE CLEARANCE IN PREDICTING GLOMERULAR FILTRATION RATE. ESTIMATED GFR IS NOT APPLICABLE FOR DIALYSIS PATIENTS. Specimen slightly ictericBILIRUBIN, [id number] 05:52:00 Test Item Value Reference Range Comments BILIRUBIN DIRECT (BEAKER) (test psye=911) 1.6 mg/dL 0.1-0.5 PROTHROMBIN [id number] 05:41:00 Test Item Value Reference Range Comments PROTIME (BEAKER) (test yntw=438) 21.3 seconds 11.7-14.7 INR (BEAKER) (test xyai=726) 1.8 <=5.9 RECOMMENDED COUMADIN/WARFARIN INR THERAPY RANGESSTANDARD DOSE: 2.0 - 3.0 Includes: PROPHYLAXIS forvenous thrombosis, systemic embolization; TREATMENT for venous thrombosis and/or pulmonary embolus.HIGH RISK: Target INR is 2.5-3.5 for patients with mechanical heart valves.CBC W/PLT COUNT & AUTO [id number] 05:32:00 Test Item Value Reference Range Comments WHITE BLOOD CELL COUNT (BEAKER) (test dxst=288) 5.0 K/ L 3.5-10.5 RED BLOOD CELL COUNT (BEAKER) (test hekd=232) 2.53 M/ L 4.63-6.08 HEMOGLOBIN (BEAKER) (test gotb=085) 8.1 GM/DL 13.7-17.5 HEMATOCRIT (BEAKER) (test swhq=799) 23.6 % 40.1-51.0 MEAN CORPUSCULAR VOLUME (BEAKER) (test yqvk=339) 93.3 fL 79.0-92.2 MEAN CORPUSCULAR HEMOGLOBIN (BEAKER) (test 32.0 pg 25.7-32.2 qrlh=659) MEAN CORPUSCULAR HEMOGLOBIN CONC (BEAKER) (test 34.3 GM/DL 32.3-36.5 wwqi=507) RED CELL DISTRIBUTION WIDTH (BEAKER) (test 14.6 % 11.6-14.4 ddwa=585) PLATELET COUNT (BEAKER) (test cjgf=875) 73 K/CU MM 150-450 MEAN PLATELET VOLUME (BEAKER) (test fvwu=874) 8.8 fL 9.4-12.4 NUCLEATED RED BLOOD CELLS (BEAKER) (test 0 /100 WBC 0-0 pwdh=840) NEUTROPHILS RELATIVE PERCENT (BEAKER) (test 71 % uatk=121) LYMPHOCYTES RELATIVE PERCENT (BEAKER) (test 10 % talv=567) MONOCYTES RELATIVE PERCENT (BEAKER) (test 16 % niku=658) EOSINOPHILS RELATIVE PERCENT (BEAKER) (test 3 % szfe=733) BASOPHILS RELATIVE PERCENT (BEAKER) (test 0 % pahk=832) NEUTROPHILS ABSOLUTE COUNT (BEAKER) (test 3.56 K/ L 1.78-5.38 gxoz=583) LYMPHOCYTES ABSOLUTE COUNT (BEAKER) (test 0.48 K/ L 1.32-3.57 bjly=301) MONOCYTES ABSOLUTE COUNT (BEAKER) (test frcq=860) 0.80 K/ L 0.30-0.82 EOSINOPHILS ABSOLUTE COUNT (BEAKER) (test 0.13 K/ L 0.04-0.54 srca=497) BASOPHILS ABSOLUTE COUNT (BEAKER) (test nbbr=342) 0.01 K/ L 0.01-0.08 IMMATURE GRANULOCYTES-RELATIVE PERCENT (BEAKER) 1 % 0-1 (test qwkh=4662) POCT-GLUCOSE [id number] 21:24:00 Test Item Value Reference Range Comments POC-GLUCOSE METER (BEAKER) 137 mg/dL 70-110 TESTED AT [address] (test paxl=6327) [place] [address] POCT-GLUCOSE [id number] 17:52:00 Test Item Value Reference Range Comments POC-GLUCOSE METER (BEAKER) 166 mg/dL 70-110 TESTED AT [address] (test ical=5704) [place] [id number] BASIC METABOLIC [id number] 17:48:00 Test Item Value Reference Range Comments SODIUM (BEAKER) (test 128 meq/L 136-145 rymc=952) POTASSIUM (BEAKER) (test 4.0 meq/L 3.5-5.1 jmpl=337) CHLORIDE (BEAKER) (test 97 meq/L 98-107 valf=281) CO2 (BEAKER) (test 23 meq/L 22-29 gpek=080) BLOOD UREA NITROGEN 24 mg/dL 7-21 (BEAKER) (test ibbv=457) CREATININE (BEAKER) (test 1.25 mg/dL 0.57-1.25 sfst=114) GLUCOSE RANDOM (BEAKER) 123 mg/dL 70-105 (test zjdf=235) CALCIUM (BEAKER) (test 8.9 mg/dL 8.4-10.2 nlaj=662) EGFR (BEAKER) (test 60 mL/min/1.73 sq m ESTIMATED GFR IS NOT miwu=4641) ACCURATE CREATININE CLEARANCE IN PREDICTING GLOMERULAR FILTRATION RATE. ESTIMATED GFR IS NOT APPLICABLE FOR DIALYSIS PATIENTS. POCT-GLUCOSE [id number] 12:18:00 Test Item Value Reference Range Comments POC-GLUCOSE METER (BEAKER) 152 mg/dL 70-110 TESTED AT [address] (test fzta=5893) [place] [address] POCT-GLUCOSE [id number] 09:31:00 Test Item Value Reference Range Comments POC-GLUCOSE METER (BEAKER) 142 mg/dL 70-110 TESTED AT [address] (test poii=8347) [place] [address] BASIC METABOLIC [id number] 09:03:00 Test Item Value Reference Range Comments SODIUM (BEAKER) (test 125 meq/L 136-145 nbum=914) POTASSIUM (BEAKER) (test 5.1 meq/L 3.5-5.1 Specimen slightly xtdn=290) hemolyzed CHLORIDE (BEAKER) (test 95 meq/L 98-107 ndmk=900) CO2 (BEAKER) (test 23 meq/L 22-29 gyxg=032) BLOOD UREA NITROGEN 26 mg/dL 7-21 (BEAKER) (test eysp=674) CREATININE (BEAKER) (test 1.25 mg/dL 0.57-1.25 Specimen slightly jhfl=564) hemolyzed GLUCOSE RANDOM (BEAKER) 99 mg/dL 70-105 (test zsbe=350) CALCIUM (BEAKER) (test 9.0 mg/dL 8.4-10.2 emuk=147) EGFR (BEAKER) (test 60 mL/min/1.73 sq m ESTIMATED GFR IS NOT mcff=5624) ACCURATE CREATININE CLEARANCE IN PREDICTING GLOMERULAR FILTRATION RATE. ESTIMATED GFR IS NOT APPLICABLE FOR DIALYSIS PATIENTS. POCT-GLUCOSE [id number] 08:38:00 Test Item Value Reference Range Comments POC-GLUCOSE METER (BEAKER) 171 mg/dL 70-110 TESTED AT [address] (test kcyn=9815) [place] [address] [id number] 05:30:00 Test Item Value Reference Range Comments PHOSPHORUS (BEAKER) (test bnes=725) 2.9 mg/dL 2.3-4.7 [id number] 05:30:00 Test Item Value Reference Range Comments MAGNESIUM (BEAKER) (test hiyq=878) 2.2 mg/dL 1.6-2.6 COMPREHENSIVE METABOLIC [id number] 05:30:00 Test Item Value Reference Range Comments TOTAL PROTEIN (BEAKER) 5.2 gm/dL 6.0-8.3 (test cpsb=211) ALBUMIN (BEAKER) (test 3.4 g/dL 3.5-5.0 vkcl=9072) ALKALINE PHOSPHATASE 134 U/L 40-150 (BEAKER) (test jhoh=989) BILIRUBIN TOTAL (BEAKER) 2.3 mg/dL 0.2-1.2 (test zfem=110) SODIUM (BEAKER) (test 124 meq/L 136-145 luwj=207) POTASSIUM (BEAKER) (test 4.9 meq/L 3.5-5.1 lhlx=105) CHLORIDE (BEAKER) (test 94 meq/L 98-107 tonb=033) CO2 (BEAKER) (test 24 meq/L 22-29 umje=654) BLOOD UREA NITROGEN 27 mg/dL 7-21 (BEAKER) (test ucub=867) CREATININE (BEAKER) (test 1.27 mg/dL 0.57-1.25 zhhq=494) GLUCOSE RANDOM (BEAKER) 122 mg/dL 70-105 (test prct=825) CALCIUM (BEAKER) (test 9.2 mg/dL 8.4-10.2 hlfm=398) AST (SGOT) (BEAKER) (test 24 U/L 5-34 gbrg=130) ALT (SGPT) (BEAKER) (test 10 U/L 6-55 aezl=559) EGFR (BEAKER) (test 59 mL/min/1.73 sq m ESTIMATED GFR IS NOT brit=2068) ACCURATE CREATININE CLEARANCE IN PREDICTING GLOMERULAR FILTRATION RATE. ESTIMATED GFR IS NOT APPLICABLE FOR DIALYSIS PATIENTS. BILIRUBIN, [id number] 05:30:00 Test Item Value Reference Range Comments BILIRUBIN DIRECT (BEAKER) (test vicy=922) 1.5 mg/dL 0.1-0.5 PROTHROMBIN [id number] 05:09:00 Test Item Value Reference Range Comments PROTIME (BEAKER) (test bocy=720) 22.3 seconds 11.7-14.7 INR (BEAKER) (test uums=814) 2.0 <=5.9 RECOMMENDED COUMADIN/WARFARIN INR THERAPY RANGESSTANDARD DOSE: 2.0 - 3.0 Includes: PROPHYLAXIS forvenous thrombosis, systemic embolization; TREATMENT for venous thrombosis and/or pulmonary embolus.HIGH RISK: Target INR is 2.5-3.5 for patients with mechanical heart valves.CBC W/PLT COUNT & AUTO [id number] 04:59:00 Test Item Value Reference Range Comments WHITE BLOOD CELL COUNT (BEAKER) (test jgqu=361) 5.0 K/ L 3.5-10.5 RED BLOOD CELL COUNT (BEAKER) (test iner=502) 2.24 M/ L 4.63-6.08 HEMOGLOBIN (BEAKER) (test kdhf=534) 7.2 GM/DL 13.7-17.5 HEMATOCRIT (BEAKER) (test wspc=422) 20.8 % 40.1-51.0 MEAN CORPUSCULAR VOLUME (BEAKER) (test ihuk=744) 92.9 fL 79.0-92.2 MEAN CORPUSCULAR HEMOGLOBIN (BEAKER) (test 32.1 pg 25.7-32.2 eoeo=839) MEAN CORPUSCULAR HEMOGLOBIN CONC (BEAKER) (test 34.6 GM/DL 32.3-36.5 utld=722) RED CELL DISTRIBUTION WIDTH (BEAKER) (test 14.2 % 11.6-14.4 nqww=829) PLATELET COUNT (BEAKER) (test uydi=792) 56 K/CU MM 150-450 MEAN PLATELET VOLUME (BEAKER) (test qodo=447) 8.9 fL 9.4-12.4 NUCLEATED RED BLOOD CELLS (BEAKER) (test 0 /100 WBC 0-0 gaci=736) NEUTROPHILS RELATIVE PERCENT (BEAKER) (test 82 % pddg=878) LYMPHOCYTES RELATIVE PERCENT (BEAKER) (test 5 % ochj=657) MONOCYTES RELATIVE PERCENT (BEAKER) (test 12 % swxf=514) EOSINOPHILS RELATIVE PERCENT (BEAKER) (test 0 % mwek=595) BASOPHILS RELATIVE PERCENT (BEAKER) (test 0 % dhmz=945) NEUTROPHILS ABSOLUTE COUNT (BEAKER) (test 4.12 K/ L 1.78-5.38 acgj=856) LYMPHOCYTES ABSOLUTE COUNT (BEAKER) (test 0.26 K/ L 1.32-3.57 xngu=356) MONOCYTES ABSOLUTE COUNT (BEAKER) (test aogr=615) 0.59 K/ L 0.30-0.82 EOSINOPHILS ABSOLUTE COUNT (BEAKER) (test 0.00 K/ L 0.04-0.54 lhpz=803) BASOPHILS ABSOLUTE COUNT (BEAKER) (test zxvy=144) 0.00 K/ L 0.01-0.08 IMMATURE GRANULOCYTES-RELATIVE PERCENT (BEAKER) 1 % 0-1 (test lufr=8541) CALCIUM, [id number] 04:57:00 Test Item Value Reference Range Comments CALCIUM IONIZED (BEAKER) (test hqxa=574) 1.14 mmol/L 1.12-1.27 PH, BLOOD (BEAKER) (test cvrd=8332) 7.39 POCT-GLUCOSE [id number] 00:41:00 Test Item Value Reference Range Comments POC-GLUCOSE METER (BEAKER) 186 mg/dL 70-110 TESTED AT [facility] [address] [facility] (test aapb=9221) [facility] [address] CORTISOL,60 [id number] 23:00:00 Test Item Value Reference Range Comments CORTISOL BASELINE NETWORKED (BEAKER) (test 7.5 mcg/dL xcxp=8313) CORTISOL 30 MINUTE NETWORKED (BEAKER) (test 14.1 mcg/dL xshg=1371) CORTISOL, 60 MINUTE (BEAKER) (test mpef=2638) 18.9 ug/dL ACTH STIMULATION TEST INTERPRETATION GUIDELINES(Synonyms: [...] serum cortisollevel 60 minutes after cosyntropin administration.CORTISOL,30 [id number] 22:05:00 Test Item Value Reference Range Comments CORTISOL BASELINE NETWORKED (BEAKER) (test 7.5 mcg/dL zqdu=1596) CORTISOL, 30 MINUTE (BEAKER) (test tdof=9550) 14.1 ug/dL ACTH STIMULATION TEST INTERPRETATION GUIDELINES(Synonyms: [...] study by Mindy et al (NEVAEH 2000,283( 8):4212-45), the ACTH Stimulation Test provides important prognostic [...] cortisollevel 60 minutes after cosyntropin administration.BASIC METABOLIC [id number] 21:42:00 Test Item Value Reference Range Comments SODIUM (BEAKER) (test 123 meq/L 136-145 xdkd=684) POTASSIUM (BEAKER) (test 4.3 meq/L 3.5-5.1 tvhd=484) CHLORIDE (BEAKER) (test 93 meq/L 98-107 uuta=612) CO2 (BEAKER) (test 24 meq/L 22-29 nkao=277) BLOOD UREA NITROGEN 29 mg/dL 7-21 (BEAKER) (test eatk=853) CREATININE (BEAKER) (test 1.38 mg/dL 0.57-1.25 gxry=986) GLUCOSE RANDOM (BEAKER) 109 mg/dL 70-105 (test ffml=627) CALCIUM (BEAKER) (test 9.2 mg/dL 8.4-10.2 anqb=458) EGFR (BEAKER) (test 54 mL/min/1.73 sq m ESTIMATED GFR IS NOT pyau=8029) ACCURATE CREATININE CLEARANCE IN PREDICTING GLOMERULAR FILTRATION RATE. ESTIMATED GFR IS NOT APPLICABLE FOR DIALYSIS PATIENTS. Call results to Dr Almendarez METABOLIC [id number] 18:03:00 Test Item Value Reference Range Comments SODIUM (BEAKER) (test 124 meq/L 136-145 fyuc=761) POTASSIUM (BEAKER) (test 4.6 meq/L 3.5-5.1 grvz=577) CHLORIDE (BEAKER) (test 93 meq/L 98-107 dtcx=141) CO2 (BEAKER) (test 25 meq/L 22-29 wayw=430) BLOOD UREA NITROGEN 32 mg/dL 7-21 (BEAKER) (test crgb=000) CREATININE (BEAKER) (test 1.40 mg/dL 0.57-1.25 elqf=108) GLUCOSE RANDOM (BEAKER) 94 mg/dL 70-105 (test bdve=542) CALCIUM (BEAKER) (test 9.0 mg/dL 8.4-10.2 bmez=617) EGFR (BEAKER) (test 53 mL/min/1.73 sq m ESTIMATED GFR IS NOT tuvs=0072) ACCURATE CREATININE CLEARANCE IN PREDICTING GLOMERULAR FILTRATION RATE. ESTIMATED GFR IS NOT APPLICABLE FOR DIALYSIS PATIENTS. BODY FLUID CELL COUNT WITH [id number] 13:54:00 Test Item Value Reference Range Comments APPEARANCE FLUID (BEAKER) (test arry=731) Slightly Hazy Clear COLOR FLUID (BEAKER) (test cgce=646) Yellow Colorless, Straw RBC FLUID (BEAKER) (test dflj=456) 1000 /cu mm <=1 ADJUSTED WBC FLUID (BEAKER) (test kmrd=8112) 54 /cu mm <=5 LINING CELLS (BEAKER) (test jyyn=8181) 2 /cu mm <=1 NEUTROPHILS FLUID (BEAKER) (test ggzv=4094) 6 % LYMPHS FLUID (BEAKER) (test qjsd=789) 25 % MONO/MACROPHAGE FLUID (BEAKER) (test 69 % ooqr=277) EOSINOPHILS FLUID (BEAKER) (test ywxm=952) 0 % BASO FLUID (BEAKER) (test brpm=782) 0 % CONTAINER BODY FLUID (BEAKER) (test Sterile Vial izsq=6461) ALBUMIN, BODY [id number] 13:45:00 Test Item Value Reference Range Comments ALBUMIN FLUID (BEAKER) (test lxwc=950) 0.8 gm/dL Reference Range: No Normals Assay performance has not been validated for this type of specimen.LACTATE DEHYDROGENASE (LDH), BODY [id number] 13:13:00 Test Item Value Reference Range Comments LACTATE DEHYDROGENASE FLUID (BEAKER) (test dbwn=718) < U/L Absence of reference range indicates that normals have not been defined.Assay performance has not been validated for this type of specimen.GLUCOSE, BODY [id number] 13:13:00 Test Item Value Reference Range Comments GLUCOSE, BODY FLUID (BEAKER) (test mnaz=5870) 82 mg/dL Absence of reference range indicates that normals have not been defined.Assay performance has not been validated for this type of specimen.TRIGLYCERIDES, BODY [id number] 13:10:00 Test Item Value Reference Range Comments TRIGLYCERIDES FLUID (BEAKER) (test abbz=444) 39 mg/dL Reference Range: No Normals Assay performance has not been validated for this type of specimen.PROTEIN, BODY [id number] 13:09:00 Test Item Value Reference Range Comments PROTEIN FLUID (BEAKER) (test zyzh=283) 1.2 g/dL Absence of reference range indicates that normals have not been defined.Assay performance has not been validated for this type of specimen.CORTISOL, [id number] 12:52:00 Test Item Value Reference Range Comments CORTISOL, BASELINE (BEAKER) (test lldd=5466) 7.5 ug/dL ACTH STIMULATION TEST INTERPRETATION GUIDELINES(Synonyms: [...] cortisollevel 60 minutes after cosyntropin administration.BASIC METABOLIC [id number] 12:40:00 Test Item Value Reference Range Comments SODIUM (BEAKER) (test 119 meq/L 136-145 ytjs=914) POTASSIUM (BEAKER) (test 5.2 meq/L 3.5-5.1 bzgr=857) CHLORIDE (BEAKER) (test 90 meq/L 98-107 scft=085) CO2 (BEAKER) (test 23 meq/L 22-29 zfvy=903) BLOOD UREA NITROGEN 34 mg/dL 7-21 (BEAKER) (test miyv=079) CREATININE (BEAKER) (test 1.46 mg/dL 0.57-1.25 mxwz=138) GLUCOSE RANDOM (BEAKER) 84 mg/dL 70-105 (test wyma=107) CALCIUM (BEAKER) (test 8.8 mg/dL 8.4-10.2 depn=051) EGFR (BEAKER) (test 51 mL/min/1.73 sq m ESTIMATED GFR IS NOT efct=9788) ACCURATE CREATININE CLEARANCE IN PREDICTING GLOMERULAR FILTRATION RATE. ESTIMATED GFR IS NOT APPLICABLE FOR DIALYSIS PATIENTS. Specimen slightly ictericRAD, CHEST, 1 VIEW, NON [id number] 11:50:00Reason for exam:->coughShould this be performed at the bedside?->YesFINAL REPORT Chest one view compared to May 12, 2018 Discussion: There is diffuse interstitial prominence. No effusion or pneumothorax. Heart size normal. IMPRESSIONS: No changeSigned: Nisbet, Karina MDReport Verified Date/ Time: 08/26/2018 11:50:19 Reading Location: [facility] Reading Room BASIC METABOLIC [id number] 09:35:00 Test Item Value Reference Range Comments SODIUM (BEAKER) (test 119 meq/L 136-145 havn=940) POTASSIUM (BEAKER) (test 4.9 meq/L 3.5-5.1 lcot=150) CHLORIDE (BEAKER) (test 89 meq/L 98-107 hfbj=919) CO2 (BEAKER) (test 23 meq/L 22-29 vtas=593) BLOOD UREA NITROGEN 36 mg/dL 7-21 (BEAKER) (test zjgn=918) CREATININE (BEAKER) (test 1.46 mg/dL 0.57-1.25 eyeq=272) GLUCOSE RANDOM (BEAKER) 83 mg/dL 70-105 (test fddn=674) CALCIUM (BEAKER) (test 8.8 mg/dL 8.4-10.2 fqsv=272) EGFR (BEAKER) (test 51 mL/min/1.73 sq m ESTIMATED GFR IS NOT uhiq=6452) ACCURATE CREATININE CLEARANCE IN PREDICTING GLOMERULAR FILTRATION RATE. ESTIMATED GFR IS NOT APPLICABLE FOR DIALYSIS PATIENTS. POCT-GLUCOSE [id number] 05:56:00 Test Item Value Reference Range Comments POC-GLUCOSE METER (BEAKER) 86 mg/dL 70-110 TESTED AT [facility] [address] [facility] (test pyhm=7348) [facility] [address] CBC W/PLT COUNT & AUTO [id number] 04:42:00 Test Item Value Reference Range Comments WHITE BLOOD CELL COUNT (BEAKER) (test nmxg=725) 10.5 K/ L 3.5-10.5 RED BLOOD CELL COUNT (BEAKER) (test csef=975) 2.37 M/ L 4.63-6.08 HEMOGLOBIN (BEAKER) (test aumn=499) 7.4 GM/DL 13.7-17.5 HEMATOCRIT (BEAKER) (test pgxb=168) 21.6 % 40.1-51.0 MEAN CORPUSCULAR VOLUME (BEAKER) (test krvg=718) 91.1 fL 79.0-92.2 MEAN CORPUSCULAR HEMOGLOBIN (BEAKER) (test 31.2 pg 25.7-32.2 vuwh=051) MEAN CORPUSCULAR HEMOGLOBIN CONC (BEAKER) (test 34.3 GM/DL 32.3-36.5 mfmq=899) RED CELL DISTRIBUTION WIDTH (BEAKER) (test 14.4 % 11.6-14.4 nhbo=005) PLATELET COUNT (BEAKER) (test opdp=184) 67 K/CU MM 150-450 MEAN PLATELET VOLUME (BEAKER) (test nywt=942) 8.3 fL 9.4-12.4 NUCLEATED RED BLOOD CELLS (BEAKER) (test 0 /100 WBC 0-0 wwzi=010) NEUTROPHILS RELATIVE PERCENT (BEAKER) (test 82 % qndl=897) LYMPHOCYTES RELATIVE PERCENT (BEAKER) (test 4 % kgsk=241) MONOCYTES RELATIVE PERCENT (BEAKER) (test 12 % bzrl=350) EOSINOPHILS RELATIVE PERCENT (BEAKER) (test 1 % qjla=029) BASOPHILS RELATIVE PERCENT (BEAKER) (test 0 % pjoa=331) NEUTROPHILS ABSOLUTE COUNT (BEAKER) (test 8.62 K/ L 1.78-5.38 pwou=386) LYMPHOCYTES ABSOLUTE COUNT (BEAKER) (test 0.45 K/ L 1.32-3.57 xxjj=851) MONOCYTES ABSOLUTE COUNT (BEAKER) (test chkp=601) 1.31 K/ L 0.30-0.82 EOSINOPHILS ABSOLUTE COUNT (BEAKER) (test 0.10 K/ L 0.04-0.54 hprb=479) BASOPHILS ABSOLUTE COUNT (BEAKER) (test cywl=811) 0.00 K/ L 0.01-0.08 IMMATURE GRANULOCYTES-RELATIVE PERCENT (BEAKER) 1 % 0-1 (test lmsy=1413) COMPREHENSIVE METABOLIC [id number] 04:36:00 Test Item Value Reference Range Comments TOTAL PROTEIN (BEAKER) 4.9 gm/dL 6.0-8.3 (test zcmt=506) ALBUMIN (BEAKER) (test 2.8 g/dL 3.5-5.0 thtc=5712) ALKALINE PHOSPHATASE 146 U/L 40-150 (BEAKER) (test glks=766) BILIRUBIN TOTAL (BEAKER) 2.9 mg/dL 0.2-1.2 (test qyvp=534) SODIUM (BEAKER) (test 118 meq/L 136-145 rxmv=765) POTASSIUM (BEAKER) (test 5.2 meq/L 3.5-5.1 irpp=519) CHLORIDE (BEAKER) (test 90 meq/L 98-107 tdyk=478) CO2 (BEAKER) (test 23 meq/L 22-29 ydaz=668) BLOOD UREA NITROGEN 37 mg/dL 7-21 (BEAKER) (test qvdp=322) CREATININE (BEAKER) (test 1.47 mg/dL 0.57-1.25 stnf=836) GLUCOSE RANDOM (BEAKER) 65 mg/dL 70-105 (test eldg=217) CALCIUM (BEAKER) (test 8.9 mg/dL 8.4-10.2 auyy=076) AST (SGOT) (BEAKER) (test 29 U/L 5-34 sjij=598) ALT (SGPT) (BEAKER) (test 10 U/L 6-55 jvnd=250) EGFR (BEAKER) (test 50 mL/min/1.73 sq m ESTIMATED GFR IS NOT jimn=4394) ACCURATE CREATININE CLEARANCE IN PREDICTING GLOMERULAR FILTRATION RATE. ESTIMATED GFR IS NOT APPLICABLE FOR DIALYSIS PATIENTS. Specimen slightly [id number] 04:33:00 Test Item Value Reference Range Comments PHOSPHORUS (BEAKER) (test vnyh=882) 3.1 mg/dL 2.3-4.7 [id number] 04:33:00 Test Item Value Reference Range Comments MAGNESIUM (BEAKER) (test iyup=866) 2.1 mg/dL 1.6-2.6 CALCIUM, [id number] 04:05:00 Test Item Value Reference Range Comments CALCIUM IONIZED (BEAKER) (test ygbx=619) 1.13 mmol/L 1.12-1.27 PH, BLOOD (BEAKER) (test icll=6450) 7.38 BASIC METABOLIC [id number] 01:34:00 Test Item Value Reference Range Comments SODIUM (BEAKER) (test 117 meq/L 136-145 ltsw=079) POTASSIUM (BEAKER) (test 4.9 meq/L 3.5-5.1 xvde=163) CHLORIDE (BEAKER) (test 89 meq/L 98-107 jonb=493) CO2 (BEAKER) (test 22 meq/L 22-29 lowg=864) BLOOD UREA NITROGEN 37 mg/dL 7-21 (BEAKER) (test qfab=515) CREATININE (BEAKER) (test 1.52 mg/dL 0.57-1.25 wcqo=115) GLUCOSE RANDOM (BEAKER) 67 mg/dL 70-105 (test hzqm=811) CALCIUM (BEAKER) (test 9.1 mg/dL 8.4-10.2 ljis=497) EGFR (BEAKER) (test 48 mL/min/1.73 sq m ESTIMATED GFR IS NOT ndvz=9319) ACCURATE CREATININE CLEARANCE IN PREDICTING GLOMERULAR FILTRATION RATE. ESTIMATED GFR IS NOT APPLICABLE FOR DIALYSIS PATIENTS. Specimen slightly ictericU/S, ABDOMINAL, [id number] 23:49:00Abdomen limited area? Add comment if clarification [...] [place] Verified Date/Time: 08/25/2018 23:49:36 Reading Location: [facility] B1 C[address]Y CT Body Reading Room POCT-GLUCOSE [id number] 23:16:00 Test Item Value Reference Range Comments POC-GLUCOSE METER (BEAKER) 89 mg/dL 70-110 TESTED AT [facility] [address] [facility] (test cizs=1199) [facility] [address] COMPREHENSIVE METABOLIC [id number] 21:15:00 Test Item Value Reference Range Comments TOTAL PROTEIN (BEAKER) 5.4 gm/dL 6.0-8.3 (test wsmr=455) ALBUMIN (BEAKER) (test 3.1 g/dL 3.5-5.0 sbnb=7387) ALKALINE PHOSPHATASE 164 U/L 40-150 (BEAKER) (test epru=578) BILIRUBIN TOTAL (BEAKER) 3.1 mg/dL 0.2-1.2 (test equu=179) SODIUM (BEAKER) (test 116 meq/L 136-145 khgo=530) POTASSIUM (BEAKER) (test 5.0 meq/L 3.5-5.1 ycci=932) CHLORIDE (BEAKER) (test 87 meq/L 98-107 bzgv=122) CO2 (BEAKER) (test 22 meq/L 22-29 mlpo=104) BLOOD UREA NITROGEN 38 mg/dL 7-21 (BEAKER) (test ucbt=434) CREATININE (BEAKER) (test 1.52 mg/dL 0.57-1.25 hptw=744) GLUCOSE RANDOM (BEAKER) 67 mg/dL 70-105 (test jrik=714) CALCIUM (BEAKER) (test 9.1 mg/dL 8.4-10.2 unuq=104) AST (SGOT) (BEAKER) (test 30 U/L 5-34 ldvb=175) ALT (SGPT) (BEAKER) (test 10 U/L 6-55 yuqn=519) EGFR (BEAKER) (test 48 mL/min/1.73 sq m ESTIMATED GFR IS NOT pujz=5596) ACCURATE CREATININE CLEARANCE IN PREDICTING GLOMERULAR FILTRATION RATE. ESTIMATED GFR IS NOT APPLICABLE FOR DIALYSIS PATIENTS. Recheck and call Dr. Solorio with results [phone] slightly ictericBASIC METABOLIC [id number] 17:36:00 Test Item Value Reference Range Comments SODIUM (BEAKER) (test 119 meq/L 136-145 ppcv=319) POTASSIUM (BEAKER) (test 5.0 meq/L 3.5-5.1 dwsv=281) CHLORIDE (BEAKER) (test 89 meq/L 98-107 tqhd=503) CO2 (BEAKER) (test 22 meq/L 22-29 eslk=595) BLOOD UREA NITROGEN 38 mg/dL 7-21 (BEAKER) (test wdut=741) CREATININE (BEAKER) (test 1.50 mg/dL 0.57-1.25 pnkr=823) GLUCOSE RANDOM (BEAKER) 70 mg/dL 70-105 (test rnfv=995) CALCIUM (BEAKER) (test 8.9 mg/dL 8.4-10.2 vkyr=397) EGFR (BEAKER) (test 49 mL/min/1.73 sq m ESTIMATED GFR IS NOT yldj=1651) ACCURATE CREATININE CLEARANCE IN PREDICTING GLOMERULAR FILTRATION RATE. ESTIMATED GFR IS NOT APPLICABLE FOR DIALYSIS PATIENTS. Specimen slightly ictericCT, CHEST, WITH HIGH RESOLUTION, INTERSTITAL LUNG [id number] 17:36:00Reason for exam:->follow up for lung noduleFINAL [...] MDReport Verified Date/Time: 08/25/2018 17:36:51 Reading Location: [facility] B1 [id number] CT Body Reading Room CT, SPINE, LUMBAR, WO [id number] 17:06:00FINAL REPORT CT thoracic and lumbar spine [...] Bain Verified Date/Time: 08/25/2018 17:06:21 Reading Location: [facility] Radiology Reading Room CT, SPINE, THORACIC, WO [id number] 17:06:00FINAL REPORT CT thoracic and lumbar spine [...] Verified Date/Time: 08/25/2018 17: 06:21 Reading Location: [facility] Radiology Reading Room EOSINOPHIL SMEAR, [id number] 16:40:00 Test Item Value Reference Range Comments EOSINOPHIL SMEAR, URINE (BEAKER) (test No EOS seen No EOS seen mkyc=8649) SODIUM, RANDOM [id number] 15:13:00 Test Item Value Reference Range Comments SODIUM URINE (BEAKER) (test jvsn=619) < meq/L Reference Range: No NormalsCOMPREHENSIVE METABOLIC [id number] 15:12:00 Test Item Value Reference Range Comments TOTAL PROTEIN (BEAKER) 5.0 gm/dL 6.0-8.3 (test cunp=034) ALBUMIN (BEAKER) (test 2.9 g/dL 3.5-5.0 jskm=1186) ALKALINE PHOSPHATASE 154 U/L 40-150 (BEAKER) (test qtbv=478) BILIRUBIN TOTAL (BEAKER) 3.1 mg/dL 0.2-1.2 (test khtd=035) SODIUM (BEAKER) (test 116 meq/L 136-145 pvpk=781) POTASSIUM (BEAKER) (test 4.8 meq/L 3.5-5.1 enbp=392) CHLORIDE (BEAKER) (test 87 meq/L 98-107 uymr=726) CO2 (BEAKER) (test 24 meq/L 22-29 owuz=788) BLOOD UREA NITROGEN 39 mg/dL 7-21 (BEAKER) (test wzah=347) CREATININE (BEAKER) (test 1.53 mg/dL 0.57-1.25 mvpf=782) GLUCOSE RANDOM (BEAKER) 67 mg/dL 70-105 (test cxap=538) CALCIUM (BEAKER) (test 8.6 mg/dL 8.4-10.2 qnhs=896) AST (SGOT) (BEAKER) (test 24 U/L 5-34 vzqo=096) ALT (SGPT) (BEAKER) (test 11 U/L 6-55 xuad=197) EGFR (BEAKER) (test 48 mL/min/1.73 sq m ESTIMATED GFR IS NOT qkgq=8465) ACCURATE CREATININE CLEARANCE IN PREDICTING GLOMERULAR FILTRATION RATE. ESTIMATED GFR IS NOT APPLICABLE FOR DIALYSIS PATIENTS. Specimen slightly ictericPROTEIN, RANDOM [id number] 15:12:00 Test Item Value Reference Range Comments PROTEIN, URINE (BEAKER) (test rjla=7590) < mg/dL 0-14 CREATININE, RANDOM [id number] 15:10:00 Test Item Value Reference Range Comments CREATININE URINE (BEAKER) (test cjjs=747) 75.0 mg/dL Reference Range: No NormalsURINALYSIS W/ [id number] 14:55:00 Test Item Value Reference Range Comments COLOR (BEAKER) (test jrxc=779) Yellow CLARITY (BEAKER) (test dpdg=297) Hazy SPECIFIC GRAVITY UA (BEAKER) (test lzbh=266) 1.009 1.001-1.035 PH UA (BEAKER) (test arnl=574) 5.5 5.0-8.0 PROTEIN UA (BEAKER) (test vmry=720) Negative Negative GLUCOSE UA (BEAKER) (test teow=815) Negative Negative KETONES UA (BEAKER) (test nhxh=289) Negative Negative BILIRUBIN UA (BEAKER) (test zaao=916) Negative Negative BLOOD UA (BEAKER) (test gayb=432) Small Negative NITRITE UA (BEAKER) (test qklx=669) Negative Negative LEUKOCYTE ESTERASE UA (BEAKER) (test udzt=154) Negative Negative UROBILINOGEN UA (BEAKER) (test rygx=576) 0.2 mg/dL 0.2-1.0 RBC UA (BEAKER) (test hjgu=272) 20 /HPF WBC UA (BEAKER) (test kxkw=025) 27 /HPF SQUAMOUS EPITHELIAL (BEAKER) (test ozcp=813) 18 /HPF SOURCE(BEAKER) (test mprz=6369) URINALYSIS W/ REFLEX URINE [id number] 14:47:00 Test Item Value Reference Range Comments COLOR (BEAKER) (test eult=496) Yellow CLARITY (BEAKER) (test xolv=584) Hazy SPECIFIC GRAVITY UA (BEAKER) (test bdif=879) 1.010 1.001-1.035 PH UA (BEAKER) (test kmwi=218) 5.5 5.0-8.0 PROTEIN UA (BEAKER) (test uugz=847) Negative Negative GLUCOSE UA (BEAKER) (test fkfd=025) Negative Negative KETONES UA (BEAKER) (test pqmz=963) Negative Negative BILIRUBIN UA (BEAKER) (test cajh=534) Negative Negative BLOOD UA (BEAKER) (test gxsl=485) Small Negative NITRITE UA (BEAKER) (test mgnh=051) Negative Negative LEUKOCYTE ESTERASE UA (BEAKER) (test trhy=406) Negative Negative UROBILINOGEN UA (BEAKER) (test gmnd=143) 0.2 mg/dL 0.2-1.0 RBC UA (BEAKER) (test bdcz=023) 38 /HPF WBC UA (BEAKER) (test jkct=837) 7 /HPF SQUAMOUS EPITHELIAL (BEAKER) (test jjle=269) 18 /HPF AMORPHOUS CRYSTALS (BEAKER) (test ewaw=9411) Rare SOURCE(BEAKER) (test zhej=8637) OSMOLALITY, [id number] 14:40:00 Test Item Value Reference Range Comments OSMOLALITY URINE (BEAKER) (test iwdg=626) 284 mOsm/kg 40-1,400 [id number] 13:34:00 Test Item Value Reference Range Comments PROCALCITONIN (BEAKER) (test yeyn=4417) 0.25 ng/mL <0.05 SEPSIS RISK (ng/mL)Low: 0.05-0.50Intermediate: 0.51-2.00High: & gt;=2.01OSMOLALITY, [id number] 12:43:00 Test Item Value Reference Range Comments OSMOLALITY URINE (BEAKER) (test egba=570) 316 mOsm/kg 40-1,400 OSMOLALITY, [id number] 12:41:00 Test Item Value Reference Range Comments OSMOLALITY, SERUM (BEAKER) (test hbxb=716) 259 mOsm/kg 275-295 TSH/FREE T4 IF [id number] 11:36:00 Test Item Value Reference Range Comments THYROID STIMULATING HORMONE (BEAKER) (test 2.55 uIU/mL 0.35-4.94 bkqp=371) [id number] 11:34:00 Test Item Value Reference Range Comments CORTISOL, TOTAL (BEAKER) (test yczv=5583) 7.9 ug/dL 3.7-19.4 SODIUM, RANDOM [id number] 11:34:00 Test Item Value Reference Range Comments SODIUM URINE (BEAKER) (test xcsu=401) < meq/L Reference Range: No NormalsBASIC METABOLIC [id number] 11:24:00 Test Item Value Reference Range Comments SODIUM (BEAKER) (test 113 meq/L 136-145 rlcv=447) POTASSIUM (BEAKER) (test 5.3 meq/L 3.5-5.1 bshj=417) CHLORIDE (BEAKER) (test 86 meq/L 98-107 paua=931) CO2 (BEAKER) (test 21 meq/L 22-29 exjy=903) BLOOD UREA NITROGEN 39 mg/dL 7-21 (BEAKER) (test zddl=684) CREATININE (BEAKER) (test 1.57 mg/dL 0.57-1.25 afpp=164) GLUCOSE RANDOM (BEAKER) 64 mg/dL 70-105 (test moyi=257) CALCIUM (BEAKER) (test 9.1 mg/dL 8.4-10.2 hfky=895) EGFR (BEAKER) (test 46 mL/min/1.73 sq m ESTIMATED GFR IS NOT sfwp=2059) ACCURATE CREATININE CLEARANCE IN PREDICTING GLOMERULAR FILTRATION RATE. ESTIMATED GFR IS NOT APPLICABLE FOR DIALYSIS PATIENTS. Specimen slightly ictericURIC [id number] 11:21:00 Test Item Value Reference Range Comments URIC ACID (BEAKER) (test zccm=411) 8.2 mg/dL 2.6-7.2 Specimen slightly ictericCREATININE, RANDOM [id number] 11:21:00 Test Item Value Reference Range Comments CREATININE URINE (BEAKER) (test kcfw=055) 81.9 mg/dL Reference Range: No NormalsPOTASSIUM, RANDOM [id number] 11:21:00 Test Item Value Reference Range Comments POTASSIUM URINE (BEAKER) (test obxz=912) 19.2 meq/L Reference Range: No NormalsCBC W/PLT COUNT & AUTO [id number] 10: 20:00 Test Item Value Reference Range Comments WHITE BLOOD CELL COUNT (BEAKER) (test xzzt=205) 10.9 K/ L 3.5-10.5 RED BLOOD CELL COUNT (BEAKER) (test chmn=571) 2.46 M/ L 4.63-6.08 HEMOGLOBIN (BEAKER) (test wijy=009) 7.9 GM/DL 13.7-17.5 HEMATOCRIT (BEAKER) (test vsyr=695) 22.2 % 40.1-51.0 MEAN CORPUSCULAR VOLUME (BEAKER) (test umdi=453) 90.2 fL 79.0-92.2 MEAN CORPUSCULAR HEMOGLOBIN (BEAKER) (test 32.1 pg 25.7-32.2 gizi=580) MEAN CORPUSCULAR HEMOGLOBIN CONC (BEAKER) (test 35.6 GM/DL 32.3-36.5 heba=431) RED CELL DISTRIBUTION WIDTH (BEAKER) (test 14.2 % 11.6-14.4 mgtm=211) PLATELET COUNT (BEAKER) (test banq=656) 82 K/CU MM 150-450 MEAN PLATELET VOLUME (BEAKER) (test bgrw=652) 8.3 fL 9.4-12.4 NUCLEATED RED BLOOD CELLS (BEAKER) (test 0 /100 WBC 0-0 ynhg=645) (CELLAVISION MANUAL DIFF)[id number] 10:20:00 Test Item Value Reference Range Comments NEUTROPHILS - REL (CELLAVISION)(BEAKER) (test 80 % rcxd=4677) LYMPHOCYTES - REL (CELLAVISION)(BEAKER) (test 2 % htzz=4264) MONOCYTES - REL (CELLAVISION)(BEAKER) (test 6 % uwnk=4478) BANDS - REL (CELLAVISION)(BEAKER) (test 12 % 0-10 alac=4084) NEUTROPHILS - ABS (CELLAVISION)(BEAKER) (test 8.72 K/ul 1.78-5.38 kftv=6930) LYMPHOCYTES - ABS (CELLAVISION)(BEAKER) (test 0.22 K/ul 1.32-3.57 eqaw=3100) MONOCYTES - ABS (CELLAVISION)(BEAKER) (test 0.65 K/uL 0.30-0.82 garj=9520) BANDS - ABS (CELLAVISION)(BEAKER) (test 1.31 K/uL 0.00-0.80 rxhl=5911) TOTAL COUNTED (BEAKER) (test pbso=9003) 100 WBC MORPHOLOGY (BEAKER) (test zldm=254) Normal PLT MORPHOLOGY (BEAKER) (test nzbl=382) Normal POLYCHROMATOPHILLIC RBCS(BEAKER) (test bgyg=425) 2+ moderate ANISOCYTOSIS (BEAKER) (test bdsi=697) 2+ moderate POIKILOCYTES (BEAKER) (test pdzo=041) 2+ moderate ARTIFACT (CELLAVISION)(BEAKER) (test aowh=9047) Present PLATELET CONCENTRATION (CELLAVISION)(BEAKER) Decreased (test prjp=2585) Received comment: User comments: Slide comments:COMPREHENSIVE METABOLIC [id number] 09:30:00 Test Item Value Reference Range Comments TOTAL PROTEIN (BEAKER) 5.2 gm/dL 6.0-8.3 (test nuyk=368) ALBUMIN (BEAKER) (test 3.0 g/dL 3.5-5.0 gqba=4080) ALKALINE PHOSPHATASE 158 U/L 40-150 (BEAKER) (test ssmh=149) BILIRUBIN TOTAL (BEAKER) 2.9 mg/dL 0.2-1.2 (test wzlg=680) SODIUM (BEAKER) (test 111 meq/L 136-145 eerj=496) POTASSIUM (BEAKER) (test 5.5 meq/L 3.5-5.1 qcyy=413) CHLORIDE (BEAKER) (test 87 meq/L 98-107 pwnj=939) CO2 (BEAKER) (test 20 meq/L 22-29 uvlp=231) BLOOD UREA NITROGEN 39 mg/dL 7-21 (BEAKER) (test klfm=721) CREATININE (BEAKER) (test 1.55 mg/dL 0.57-1.25 ucpo=383) GLUCOSE RANDOM (BEAKER) 79 mg/dL 70-105 (test leqx=669) CALCIUM (BEAKER) (test 9.0 mg/dL 8.4-10.2 zyxt=135) AST (SGOT) (BEAKER) (test 27 U/L 5-34 bteq=520) ALT (SGPT) (BEAKER) (test 9 U/L 6-55 mjff=267) EGFR (BEAKER) (test 47 mL/min/1.73 sq m ESTIMATED GFR IS NOT skch=7945) ACCURATE CREATININE CLEARANCE IN PREDICTING GLOMERULAR FILTRATION RATE. ESTIMATED GFR IS NOT APPLICABLE FOR DIALYSIS PATIENTS. Specimen slightly ictericLACTIC ACID, VENOUS, WHOLE [id number] 09:15:00 Test Item Value Reference Range Comments LACTATE BLOOD VENOUS (2) (BEAKER) (test 0.9 mmol/L 0.5-2.2 ylgj=2455) Effective 02/28/2016: Units/Reference Range ChangeNew: 0.5-2.2 mmol/L Previous: 5 -20 mg/dLSpecimen slightly [id number] 09:01:00 Test Item Value Reference Range Comments AMMONIA (BEAKER) (test unjj=212) 83 mol/L 18-72 PT/[id number] 08:54:00 Test Item Value Reference Range Comments PROTIME (BEAKER) (test xyrf=566) 21.4 seconds 11.7-14.7 INR (BEAKER) (test erji=936) 1.9 <=5.9 PARTIAL THROMBOPLASTIN TIME (BEAKER) (test 44.2 seconds 22.5-36.0 ctle=646) RECOMMENDED COUMADIN/WARFARIN INR THERAPY RANGESSTANDARD DOSE: 2.0 - 3.0 Includes: PROPHYLAXIS forvenous thrombosis, systemic embolization; TREATMENT for venous thrombosis and/or pulmonary embolus.HIGH RISK: Target INR is 2.5-3.5 for patients with mechanical heart valves.PROTHROMBIN TIME/[id number] 08:53: 00 Test Item Value Reference Range Comments PROTIME (BEAKER) (test xbua=602) 21.4 seconds 11.7-14.7 INR (BEAKER) (test wlhr=555) 1.9 <=5.9 RECOMMENDED COUMADIN/WARFARIN INR THERAPY RANGESSTANDARD DOSE: 2.0 - 3.0 Includes: PROPHYLAXIS forvenous thrombosis, systemic embolization; TREATMENT for venous thrombosis and/or pulmonary embolus.HIGH RISK: Target INR is 2.5-3.5 for patients with mechanical heart valves.COMPREHENSIVE METABOLIC [id number] 13:54:00 Test Item Value Reference Range Comments TOTAL PROTEIN (BEAKER) 6.2 gm/dL 6.0-8.3 (test vopi=725) ALBUMIN (BEAKER) (test 3.4 g/dL 3.5-5.0 fouw=1665) ALKALINE PHOSPHATASE 190 U/L 40-150 (BEAKER) (test cwau=607) BILIRUBIN TOTAL (BEAKER) 1.9 mg/dL 0.2-1.2 (test qcmf=492) SODIUM (BEAKER) (test 125 meq/L 136-145 nxqd=175) POTASSIUM (BEAKER) (test 5.0 meq/L 3.5-5.1 jbta=381) CHLORIDE (BEAKER) (test 99 meq/L 98-107 agae=989) CO2 (BEAKER) (test 19 meq/L 22-29 ppiw=237) BLOOD UREA NITROGEN 36 mg/dL 7-21 (BEAKER) (test nhkq=201) CREATININE (BEAKER) (test 1.65 mg/dL 0.57-1.25 qwhm=829) GLUCOSE RANDOM (BEAKER) 133 mg/dL 70-105 (test rejy=620) CALCIUM (BEAKER) (test 9.5 mg/dL 8.4-10.2 xppk=516) AST (SGOT) (BEAKER) (test 23 U/L 5-34 zire=401) ALT (SGPT) (BEAKER) (test 12 U/L 6-55 pboy=000) EGFR (BEAKER) (test 44 mL/min/1.73 sq m ESTIMATED GFR IS NOT sryk=7641) ACCURATE CREATININE CLEARANCE IN PREDICTING GLOMERULAR FILTRATION RATE. ESTIMATED GFR IS NOT APPLICABLE FOR DIALYSIS PATIENTS. BILIRUBIN, [id number] 13:54:00 Test Item Value Reference Range Comments BILIRUBIN DIRECT (BEAKER) (test rxzy=357) 1.4 mg/dL 0.1-0.5 CBC W/PLT COUNT & AUTO [id number] 13:50:00 Test Item Value Reference Range Comments WHITE BLOOD CELL COUNT (BEAKER) (test rpza=814) 6.8 K/ L 3.5-10.5 RED BLOOD CELL COUNT (BEAKER) (test ordx=021) 3.01 M/ L 4.63-6.08 HEMOGLOBIN (BEAKER) (test nknb=113) 9.5 GM/DL 13.7-17.5 HEMATOCRIT (BEAKER) (test jttg=636) 28.3 % 40.1-51.0 MEAN CORPUSCULAR VOLUME (BEAKER) (test dizf=204) 94.0 fL 79.0-92.2 MEAN CORPUSCULAR HEMOGLOBIN (BEAKER) (test 31.6 pg 25.7-32.2 tayg=569) MEAN CORPUSCULAR HEMOGLOBIN CONC (BEAKER) (test 33.6 GM/DL 32.3-36.5 ltmb=481) RED CELL DISTRIBUTION WIDTH (BEAKER) (test 14.5 % 11.6-14.4 zmbg=742) PLATELET COUNT (BEAKER) (test wtor=290) 131 K/CU MM 150-450 MEAN PLATELET VOLUME (BEAKER) (test daat=085) 9.0 fL 9.4-12.4 NUCLEATED RED BLOOD CELLS (BEAKER) (test 0 /100 WBC 0-0 igox=907) NEUTROPHILS RELATIVE PERCENT (BEAKER) (test 75 % jvvl=583) LYMPHOCYTES RELATIVE PERCENT (BEAKER) (test 7 % nmma=231) MONOCYTES RELATIVE PERCENT (BEAKER) (test 14 % sglv=566) EOSINOPHILS RELATIVE PERCENT (BEAKER) (test 2 % rabn=692) BASOPHILS RELATIVE PERCENT (BEAKER) (test 0 % vqpp=000) NEUTROPHILS ABSOLUTE COUNT (BEAKER) (test 5.11 K/ L 1.78-5.38 czzo=893) LYMPHOCYTES ABSOLUTE COUNT (BEAKER) (test 0.50 K/ L 1.32-3.57 spug=155) MONOCYTES ABSOLUTE COUNT (BEAKER) (test 0.94 K/ L 0.30-0.82 trca=281) EOSINOPHILS ABSOLUTE COUNT (BEAKER) (test 0.12 K/ L 0.04-0.54 cyqq=717) BASOPHILS ABSOLUTE COUNT (BEAKER) (test 0.03 K/ L 0.01-0.08 qerk=745) IMMATURE GRANULOCYTES-RELATIVE PERCENT (BEAKER) 1 % 0-1 (test pbcy=1407) PROTHROMBIN TIME/[id number] 13:46:00 Test Item Value Reference Range Comments PROTIME (BEAKER) (test ithw=965) 19.5 seconds 11.7-14.7 INR (BEAKER) (test rlqy=977) 1.7 <=5.9 RECOMMENDED COUMADIN/WARFARIN INR THERAPY RANGESSTANDARD DOSE: 2.0 - 3.0 Includes: PROPHYLAXIS forvenous thrombosis, systemic embolization; TREATMENT for venous thrombosis and/or pulmonary embolus.HIGH RISK: Target INR is 2.5-3.5 for patients with mechanical heart valves.BONE AND/OR JOINT IMAGING, WHOLE [id number] 16:45:00FINAL REPORT PROCEDURE: BONE SCAN, WHOLE BODY CPT CODE: [id number] INDICATION: L3 vertebral body lesion follow-up R91.1 [...] Verified Date/ Time: 08/05/2018 16:45:34 Reading Location: [address] Reading Room NIR, VERTEBROPLASTY THORACIC, [id number] 17:23:00Reason for exam:->T11, T12, L2 compression fracturesAddendum [...] Verified Date/Time: 06/04/2018 17:23:27 Reading Location : [address] Radiology Reading RoomAddendum EndsFINAL REPORT HISTORY: [...] Verified Date/Time: 06/03/2018 17:56:43 Reading Location : [place] [id number] Angio Body Reading Room ALPHA FETOPROTEIN (AFP), TUMOR [id number] 15:20:00 Test Item Value Reference Range Comments ALPHA-FETOPROTEIN (BEAKER) (test svbb=5834) 2.2 ng/mL <10.0 COMPREHENSIVE METABOLIC [id number] 14:54:00 Test Item Value Reference Range Comments TOTAL PROTEIN (BEAKER) 6.5 gm/dL 6.0-8.3 (test brxs=895) ALBUMIN (BEAKER) (test 3.6 g/dL 3.5-5.0 mkcr=7090) ALKALINE PHOSPHATASE 342 U/L 40-150 (BEAKER) (test eymo=212) BILIRUBIN TOTAL (BEAKER) 4.2 mg/dL 0.2-1.2 (test cujg=670) SODIUM (BEAKER) (test 128 meq/L 136-145 yluo=763) POTASSIUM (BEAKER) (test 4.6 meq/L 3.5-5.1 zaah=526) CHLORIDE (BEAKER) (test 100 meq/L 98-107 izva=576) CO2 (BEAKER) (test 21 meq/L 22-29 ygar=355) BLOOD UREA NITROGEN 21 mg/dL 7-21 (BEAKER) (test muih=023) CREATININE (BEAKER) (test 1.37 mg/dL 0.57-1.25 fvsh=912) GLUCOSE RANDOM (BEAKER) 108 mg/dL 70-105 (test jaka=080) CALCIUM (BEAKER) (test 9.5 mg/dL 8.4-10.2 zdzx=045) AST (SGOT) (BEAKER) (test 25 U/L 5-34 wtcj=010) ALT (SGPT) (BEAKER) (test 10 U/L 6-55 qubg=879) EGFR (BEAKER) (test 54 mL/min/1.73 sq m ESTIMATED GFR IS NOT aern=9340) ACCURATE CREATININE CLEARANCE IN PREDICTING GLOMERULAR FILTRATION RATE. ESTIMATED GFR IS NOT APPLICABLE FOR DIALYSIS PATIENTS. Specimen slightly ictericBILIRUBIN, [id number] 14:54:00 Test Item Value Reference Range Comments BILIRUBIN DIRECT (BEAKER) (test uhwv=431) 2.1 mg/dL 0.1-0.5 CBC W/PLT COUNT & AUTO [id number] 14:52:00 Test Item Value Reference Range Comments WHITE BLOOD CELL COUNT (BEAKER) (test cwmc=430) 3.9 K/ L 3.5-10.5 RED BLOOD CELL COUNT (BEAKER) (test mymp=347) 2.69 M/ L 4.63-6.08 HEMOGLOBIN (BEAKER) (test eglv=962) 9.1 GM/DL 13.7-17.5 HEMATOCRIT (BEAKER) (test fyfp=691) 27.3 % 40.1-51.0 MEAN CORPUSCULAR VOLUME (BEAKER) (test jkla=681) 101.5 fL 79.0-92.2 MEAN CORPUSCULAR HEMOGLOBIN (BEAKER) (test 33.8 pg 25.7-32.2 cbis=840) MEAN CORPUSCULAR HEMOGLOBIN CONC (BEAKER) (test 33.3 GM/DL 32.3-36.5 resn=167) RED CELL DISTRIBUTION WIDTH (BEAKER) (test 18.6 % 11.6-14.4 vjfd=148) PLATELET COUNT (BEAKER) (test cvdz=005) 71 K/CU MM 150-450 MEAN PLATELET VOLUME (BEAKER) (test hjna=083) 9.6 fL 9.4-12.4 NUCLEATED RED BLOOD CELLS (BEAKER) (test 0 /100 WBC 0-0 inpi=338) NEUTROPHILS RELATIVE PERCENT (BEAKER) (test 62 % tyyq=520) LYMPHOCYTES RELATIVE PERCENT (BEAKER) (test 16 % xqno=850) MONOCYTES RELATIVE PERCENT (BEAKER) (test 17 % ragv=709) EOSINOPHILS RELATIVE PERCENT (BEAKER) (test 5 % cdil=539) BASOPHILS RELATIVE PERCENT (BEAKER) (test 0 % fuli=511) NEUTROPHILS ABSOLUTE COUNT (BEAKER) (test 2.41 K/ L 1.78-5.38 reca=140) LYMPHOCYTES ABSOLUTE COUNT (BEAKER) (test 0.62 K/ L 1.32-3.57 mwbs=470) MONOCYTES ABSOLUTE COUNT (BEAKER) (test dmrf=563) 0.65 K/ L 0.30-0.82 EOSINOPHILS ABSOLUTE COUNT (BEAKER) (test 0.20 K/ L 0.04-0.54 dabl=301) BASOPHILS ABSOLUTE COUNT (BEAKER) (test herm=641) 0.01 K/ L 0.01-0.08 IMMATURE GRANULOCYTES-RELATIVE PERCENT (BEAKER) 0 % 0-1 (test jcqt=4415) PROTHROMBIN [id number] 14:50:00 Test Item Value Reference Range Comments PROTIME (BEAKER) (test ojsc=528) 19.5 seconds 11.7-14.7 INR (BEAKER) (test umzp=913) 1.7 <=5.9 RECOMMENDED COUMADIN/WARFARIN INR THERAPY RANGESSTANDARD DOSE: 2.0 - 3.0 Includes: PROPHYLAXIS forvenous thrombosis, systemic embolization; TREATMENT for venous thrombosis and/or pulmonary embolus.HIGH RISK: Target INR is 2.5-3.5 for patients with mechanical heart valves.BODY FLUID CULTURE + GRAM [id number] 13:19:00 Test Item Value Reference Range Comments CULTURE (BEAKER) (test dltt=6334) No growth GRAM STAIN RESULT (BEAKER) (test No WBCs tstz=7045) GRAM STAIN RESULT (BEAKER) (test No organisms seen uhyr=31439) [id number] 17:36:00 Test Item Value Reference Range Comments SODIUM (BEAKER) (test xxsj=203) 133 meq/L 136-145 POTASSIUM (BEAKER) (test dydw=866) 3.2 meq/L 3.5-5.1 CHLORIDE (BEAKER) (test mmvc=153) 102 meq/L 98-107 CO2 (BEAKER) (test skcx=831) 21 meq/L 22-29 [id number] 13:21:00 Test Item Value Reference Range Comments SODIUM (BEAKER) (test lrue=258) 134 meq/L 136-145 POTASSIUM (BEAKER) (test rttb=136) 3.0 meq/L 3.5-5.1 CHLORIDE (BEAKER) (test kkyo=849) 103 meq/L 98-107 CO2 (BEAKER) (test krfx=975) 22 meq/L 22-29 CALCIUM, [id number] 04:54:00 Test Item Value Reference Range Comments CALCIUM IONIZED (BEAKER) (test ygdw=229) 1.09 mmol/L 1.12-1.27 PH, BLOOD (BEAKER) (test oqrg=7956) 7.35 [id number] 04:04:00 Test Item Value Reference Range Comments PHOSPHORUS (BEAKER) (test zgpm=114) 2.4 mg/dL 2.3-4.7 [id number] 04:04:00 Test Item Value Reference Range Comments MAGNESIUM (BEAKER) (test snul=202) 2.0 mg/dL 1.6-2.6 HEPATIC FUNCTION [id number] 04:04:00 Test Item Value Reference Range Comments TOTAL PROTEIN (BEAKER) (test muru=416) 5.8 gm/dL 6.0-8.3 ALBUMIN (BEAKER) (test zslw=3044) 4.1 g/dL 3.5-5.0 BILIRUBIN TOTAL (BEAKER) (test izuo=676) 3.9 mg/dL 0.2-1.2 BILIRUBIN DIRECT (BEAKER) (test djwc=181) 2.0 mg/dL 0.1-0.5 ALKALINE PHOSPHATASE (BEAKER) (test tkeu=399) 123 U/L 40-150 AST (SGOT) (BEAKER) (test qfbz=561) 14 U/L 5-34 ALT (SGPT) (BEAKER) (test jlfl=563) < U/L 6-55 Specimen slightly ictericCOMPREHENSIVE METABOLIC [id number] 04:04:00 Test Item Value Reference Range Comments TOTAL PROTEIN (BEAKER) 5.8 gm/dL 6.0-8.3 (test mesy=762) ALBUMIN (BEAKER) (test 4.1 g/dL 3.5-5.0 myxp=0699) ALKALINE PHOSPHATASE 123 U/L 40-150 (BEAKER) (test ahtz=453) BILIRUBIN TOTAL (BEAKER) 3.9 mg/dL 0.2-1.2 (test fghs=771) SODIUM (BEAKER) (test 135 meq/L 136-145 ogld=617) POTASSIUM (BEAKER) (test 2.9 meq/L 3.5-5.1 tffh=966) CHLORIDE (BEAKER) (test 103 meq/L 98-107 viug=685) CO2 (BEAKER) (test 21 meq/L 22-29 tkay=679) BLOOD UREA NITROGEN 18 mg/dL 7-21 (BEAKER) (test xqrc=361) CREATININE (BEAKER) (test 1.32 mg/dL 0.57-1.25 bbav=249) GLUCOSE RANDOM (BEAKER) 126 mg/dL 70-105 (test ryhk=533) CALCIUM (BEAKER) (test 9.8 mg/dL 8.4-10.2 mkwl=689) AST (SGOT) (BEAKER) (test 14 U/L 5-34 liif=517) ALT (SGPT) (BEAKER) (test < U/L 6-55 sows=233) EGFR (BEAKER) (test 57 mL/min/1.73 sq m ESTIMATED GFR IS NOT mjmj=8418) ACCURATE CREATININE CLEARANCE IN PREDICTING GLOMERULAR FILTRATION RATE. ESTIMATED GFR IS NOT APPLICABLE FOR DIALYSIS PATIENTS. Specimen slightly ictericPROTHROMBIN [id number] 04:02:00 Test Item Value Reference Range Comments PROTIME (BEAKER) (test pgoy=842) 25.1 seconds 11.7-14.7 INR (BEAKER) (test jvbj=427) 2.3 <=5.9 RECOMMENDED COUMADIN/WARFARIN INR THERAPY RANGESSTANDARD DOSE: 2.0 - 3.0 Includes: PROPHYLAXIS forvenous thrombosis, systemic embolization; TREATMENT for venous thrombosis and/or pulmonary embolus.HIGH RISK: Target INR is 2.5-3.5 for patients with mechanical heart valves.CBC W/PLT COUNT & AUTO [id number] 03:55:00 Test Item Value Reference Range Comments WHITE BLOOD CELL COUNT (BEAKER) (test vfbq=346) 3.6 K/ L 3.5-10.5 RED BLOOD CELL COUNT (BEAKER) (test ydot=682) 2.48 M/ L 4.63-6.08 HEMOGLOBIN (BEAKER) (test mdvp=228) 7.9 GM/DL 13.7-17.5 HEMATOCRIT (BEAKER) (test wlbo=723) 23.7 % 40.1-51.0 MEAN CORPUSCULAR VOLUME (BEAKER) (test uaoy=653) 95.6 fL 79.0-92.2 MEAN CORPUSCULAR HEMOGLOBIN (BEAKER) (test 31.9 pg 25.7-32.2 cwgm=580) MEAN CORPUSCULAR HEMOGLOBIN CONC (BEAKER) (test 33.3 GM/DL 32.3-36.5 gobb=241) RED CELL DISTRIBUTION WIDTH (BEAKER) (test 18.8 % 11.6-14.4 damw=008) PLATELET COUNT (BEAKER) (test iphr=504) 38 K/CU MM 150-450 MEAN PLATELET VOLUME (BEAKER) (test zzoc=267) 9.3 fL 9.4-12.4 NUCLEATED RED BLOOD CELLS (BEAKER) (test 0 /100 WBC 0-0 mtip=152) NEUTROPHILS RELATIVE PERCENT (BEAKER) (test 57 % yjin=464) LYMPHOCYTES RELATIVE PERCENT (BEAKER) (test 15 % ghbg=587) MONOCYTES RELATIVE PERCENT (BEAKER) (test 22 % zywl=807) EOSINOPHILS RELATIVE PERCENT (BEAKER) (test 4 % kdlb=172) BASOPHILS RELATIVE PERCENT (BEAKER) (test 0 % eslu=433) NEUTROPHILS ABSOLUTE COUNT (BEAKER) (test 2.09 K/ L 1.78-5.38 sett=996) LYMPHOCYTES ABSOLUTE COUNT (BEAKER) (test 0.54 K/ L 1.32-3.57 ohlu=989) MONOCYTES ABSOLUTE COUNT (BEAKER) (test znif=156) 0.81 K/ L 0.30-0.82 EOSINOPHILS ABSOLUTE COUNT (BEAKER) (test 0.15 K/ L 0.04-0.54 pzes=660) BASOPHILS ABSOLUTE COUNT (BEAKER) (test zjzv=125) 0.01 K/ L 0.01-0.08 IMMATURE GRANULOCYTES-RELATIVE PERCENT (BEAKER) 1 % 0-1 (test zzzl=8222) [id number] 18:07:00 Test Item Value Reference Range Comments SODIUM (BEAKER) (test augy=798) 132 meq/L 136-145 POTASSIUM (BEAKER) (test 2.9 meq/L 3.5-5.1 Specimen slightly hemolyzed pvhk=163) CHLORIDE (BEAKER) (test 101 meq/L 98-107 cjfo=346) CO2 (BEAKER) (test eoei=830) 18 meq/L 22-29 LACTIC ACID, VENOUS, WHOLE [id number] 16:43:00 Test Item Value Reference Range Comments LACTATE BLOOD VENOUS (2) 1.6 mmol/L 0.5-2.2 Specimen slightly hemolyzed (BEAKER) (test dsnv=9518) Effective 02/28/2016: Units/Reference Range ChangeNew: 0.5-2.2 mmol/L Previous: 5 -20 mg/dLSpecimen slightly ictericBODY FLUID CULTURE + GRAM [id number] 12: 08:00 Test Item Value Reference Range Comments CULTURE (BEAKER) (test qhzd=9608) No growth GRAM STAIN RESULT (BEAKER) (test <1+ WBCs zkpf=8393) GRAM STAIN RESULT (BEAKER) (test No organisms seen zgpx=82692) [id number] 08:10:00 Test Item Value Reference Range Comments PHOSPHORUS (BEAKER) (test jtmc=458) 2.8 mg/dL 2.3-4.7 [id number] 08:10:00 Test Item Value Reference Range Comments MAGNESIUM (BEAKER) (test chfc=600) 2.2 mg/dL 1.6-2.6 COMPREHENSIVE METABOLIC [id number] 08:10:00 Test Item Value Reference Range Comments TOTAL PROTEIN (BEAKER) 6.2 gm/dL 6.0-8.3 (test vems=936) ALBUMIN (BEAKER) (test 4.4 g/dL 3.5-5.0 pmae=4909) ALKALINE PHOSPHATASE 121 U/L 40-150 (BEAKER) (test spxu=803) BILIRUBIN TOTAL (BEAKER) 4.4 mg/dL 0.2-1.2 (test pwur=840) SODIUM (BEAKER) (test 135 meq/L 136-145 cagr=134) POTASSIUM (BEAKER) (test 2.8 meq/L 3.5-5.1 kyji=730) CHLORIDE (BEAKER) (test 102 meq/L 98-107 siio=322) CO2 (BEAKER) (test 21 meq/L 22-29 ccku=090) BLOOD UREA NITROGEN 20 mg/dL 7-21 (BEAKER) (test idyc=087) CREATININE (BEAKER) (test 1.34 mg/dL 0.57-1.25 exec=815) GLUCOSE RANDOM (BEAKER) 132 mg/dL 70-105 (test lbeu=647) CALCIUM (BEAKER) (test 10.0 mg/dL 8.4-10.2 jqyf=813) AST (SGOT) (BEAKER) (test 16 U/L 5-34 tgzc=715) ALT (SGPT) (BEAKER) (test 6 U/L 6-55 axjg=162) EGFR (BEAKER) (test 56 mL/min/1.73 sq m ESTIMATED GFR IS NOT mzck=8232) ACCURATE CREATININE CLEARANCE IN PREDICTING GLOMERULAR FILTRATION RATE. ESTIMATED GFR IS NOT APPLICABLE FOR DIALYSIS PATIENTS. Specimen slightly ictericHEPATIC FUNCTION [id number] 08:10:00 Test Item Value Reference Range Comments TOTAL PROTEIN (BEAKER) (test ftrn=682) 6.2 gm/dL 6.0-8.3 ALBUMIN (BEAKER) (test ruid=2291) 4.4 g/dL 3.5-5.0 BILIRUBIN TOTAL (BEAKER) (test wtrw=419) 4.4 mg/dL 0.2-1.2 BILIRUBIN DIRECT (BEAKER) (test jzmw=281) 1.9 mg/dL 0.1-0.5 ALKALINE PHOSPHATASE (BEAKER) (test frkw=128) 121 U/L 40-150 AST (SGOT) (BEAKER) (test qkhz=295) 16 U/L 5-34 ALT (SGPT) (BEAKER) (test bvhm=290) 6 U/L 6-55 Specimen slightly ictericCALCIUM, [id number] 07:20:00 Test Item Value Reference Range Comments CALCIUM IONIZED (BEAKER) (test vskd=918) 1.01 mmol/L 1.12-1.27 PH, BLOOD (BEAKER) (test xwop=7580) 7.49 CBC W/PLT COUNT & AUTO [id number] 06:59:00 Test Item Value Reference Range Comments WHITE BLOOD CELL COUNT (BEAKER) (test vapj=087) 4.1 K/ L 3.5-10.5 RED BLOOD CELL COUNT (BEAKER) (test favz=576) 2.62 M/ L 4.63-6.08 HEMOGLOBIN (BEAKER) (test iteo=968) 8.2 GM/DL 13.7-17.5 HEMATOCRIT (BEAKER) (test cuup=976) 24.9 % 40.1-51.0 MEAN CORPUSCULAR VOLUME (BEAKER) (test ieik=290) 95.0 fL 79.0-92.2 MEAN CORPUSCULAR HEMOGLOBIN (BEAKER) (test 31.3 pg 25.7-32.2 bbzs=182) MEAN CORPUSCULAR HEMOGLOBIN CONC (BEAKER) (test 32.9 GM/DL 32.3-36.5 rzim=804) RED CELL DISTRIBUTION WIDTH (BEAKER) (test 18.6 % 11.6-14.4 qumw=424) PLATELET COUNT (BEAKER) (test kdtw=596) 38 K/CU MM 150-450 MEAN PLATELET VOLUME (BEAKER) (test fkys=060) 9.3 fL 9.4-12.4 NUCLEATED RED BLOOD CELLS (BEAKER) (test 0 /100 WBC 0-0 tsin=340) NEUTROPHILS RELATIVE PERCENT (BEAKER) (test 66 % ajab=848) LYMPHOCYTES RELATIVE PERCENT (BEAKER) (test 12 % mhzo=594) MONOCYTES RELATIVE PERCENT (BEAKER) (test 18 % caaw=502) EOSINOPHILS RELATIVE PERCENT (BEAKER) (test 3 % rfjx=949) BASOPHILS RELATIVE PERCENT (BEAKER) (test 1 % sarp=915) NEUTROPHILS ABSOLUTE COUNT (BEAKER) (test 2.74 K/ L 1.78-5.38 pvve=638) LYMPHOCYTES ABSOLUTE COUNT (BEAKER) (test 0.49 K/ L 1.32-3.57 nyqn=092) MONOCYTES ABSOLUTE COUNT (BEAKER) (test nuxz=757) 0.75 K/ L 0.30-0.82 EOSINOPHILS ABSOLUTE COUNT (BEAKER) (test 0.11 K/ L 0.04-0.54 liol=092) BASOPHILS ABSOLUTE COUNT (BEAKER) (test flbz=211) 0.02 K/ L 0.01-0.08 IMMATURE GRANULOCYTES-RELATIVE PERCENT (BEAKER) 1 % 0-1 (test faop=7829) PROTHROMBIN [id number] 06:56:00 Test Item Value Reference Range Comments PROTIME (BEAKER) (test gdzv=981) 24.5 seconds 11.7-14.7 INR (BEAKER) (test wfof=158) 2.2 <=5.9 RECOMMENDED COUMADIN/WARFARIN INR THERAPY RANGESSTANDARD DOSE: 2.0 - 3.0 Includes: PROPHYLAXIS forvenous thrombosis, systemic embolization; TREATMENT for venous thrombosis and/or pulmonary embolus.HIGH RISK: Target INR is 2.5-3.5 for patients with mechanical heart valves.BODY FLUID CELL COUNT WITH [id number] 18:36:00 Test Item Value Reference Range Comments APPEARANCE FLUID (BEAKER) (test xyit=697) Hazy Clear COLOR FLUID (BEAKER) (test jlkk=288) Yellow Colorless, Straw RBC FLUID (BEAKER) (test vuiy=937) 2000 /cu mm <=1 ADJUSTED WBC FLUID (BEAKER) (test jsxe=9770) 96 /cu mm <=5 LINING CELLS (BEAKER) (test byst=0037) 2 /cu mm <=1 NEUTROPHILS FLUID (BEAKER) (test dldm=7631) 4 % LYMPHS FLUID (BEAKER) (test cuex=963) 11 % MONO/MACROPHAGE FLUID (BEAKER) (test kxyv=865) 85 % EOSINOPHILS FLUID (BEAKER) (test sedj=262) 0 % BASO FLUID (BEAKER) (test hzfg=500) 0 % CONTAINER BODY FLUID (BEAKER) (test ygch=5287) EDTA Tube U/S, [id number] 12:49:00Limit to 4L due to AKIReason for exam:-> ascitesFINAL REPORT Indication: Ascites. Technique: Ultrasound guided paracentesis. Findings:Preliminary ultrasound confirms ascites. A safe window was identified in the midline (suprapubic). The procedure was explained to the patient and informed consent was signed. The skin was marked and prepped in standard sterile fashion. 2% lidocaine was used for local anesthesia. A 5 Belarusian needle catheter system was advanced into the peritoneal space. 3300 cc clear yellow fluid was taken off.Sample of the fluid was sent to the laboratory. Patient tolerated the procedure well. Impression: Ultrasound guided paracentesis. Signed: Aristeo Xiong MDReport Verified Date/ Time: 05/13/2018 12:49:12 Reading Location: [facility] P006J Ultrasound Reading Room 12: 49 PMCALCIUM, [id number] 05:29:00 Test Item Value Reference Range Comments CALCIUM IONIZED (BEAKER) (test gpqr=847) 1.10 mmol/L 1.12-1.27 PH, BLOOD (BEAKER) (test mzvk=9397) 7.35 B-TYPE NATRIURETIC FACTOR (BNP)2018-05-13 04:48:00 Test Item Value Reference Range Comments B-TYPE NATRIURETIC PEPTIDE (BEAKER) (test 274 pg/mL 0-100 yyhb=020) [id number] 04:44:00 Test Item Value Reference Range Comments PHOSPHORUS (BEAKER) (test ezmt=554) 3.0 mg/dL 2.3-4.7 [id number] 04:44:00 Test Item Value Reference Range Comments MAGNESIUM (BEAKER) (test rfdw=807) 2.0 mg/dL 1.6-2.6 COMPREHENSIVE METABOLIC [id number] 04:44:00 Test Item Value Reference Range Comments TOTAL PROTEIN (BEAKER) 6.2 gm/dL 6.0-8.3 (test ytek=177) ALBUMIN (BEAKER) (test 4.3 g/dL 3.5-5.0 qrpc=7225) ALKALINE PHOSPHATASE 134 U/L 40-150 (BEAKER) (test ghjc=652) BILIRUBIN TOTAL (BEAKER) 4.4 mg/dL 0.2-1.2 (test ccsh=838) SODIUM (BEAKER) (test 131 meq/L 136-145 bgnf=234) POTASSIUM (BEAKER) (test 3.7 meq/L 3.5-5.1 rmgc=587) CHLORIDE (BEAKER) (test 96 meq/L 98-107 khky=350) CO2 (BEAKER) (test 26 meq/L 22-29 ictu=642) BLOOD UREA NITROGEN 20 mg/dL 7-21 (BEAKER) (test ofzo=189) CREATININE (BEAKER) (test 1.60 mg/dL 0.57-1.25 abqm=419) GLUCOSE RANDOM (BEAKER) 149 mg/dL 70-105 (test uzof=748) CALCIUM (BEAKER) (test 10.0 mg/dL 8.4-10.2 tukl=907) AST (SGOT) (BEAKER) (test 18 U/L 5-34 nxcu=549) ALT (SGPT) (BEAKER) (test 7 U/L 6-55 hthr=807) EGFR (BEAKER) (test 46 mL/min/1.73 sq m ESTIMATED GFR IS NOT uvky=2043) ACCURATE CREATININE CLEARANCE IN PREDICTING GLOMERULAR FILTRATION RATE. ESTIMATED GFR IS NOT APPLICABLE FOR DIALYSIS PATIENTS. Specimen slightly ictericHEPATIC FUNCTION [id number] 04:44:00 Test Item Value Reference Range Comments TOTAL PROTEIN (BEAKER) (test lsyh=767) 6.2 gm/dL 6.0-8.3 ALBUMIN (BEAKER) (test gcuk=7128) 4.3 g/dL 3.5-5.0 BILIRUBIN TOTAL (BEAKER) (test aqyn=627) 4.4 mg/dL 0.2-1.2 BILIRUBIN DIRECT (BEAKER) (test qeze=158) 2.4 mg/dL 0.1-0.5 ALKALINE PHOSPHATASE (BEAKER) (test fbla=529) 134 U/L 40-150 AST (SGOT) (BEAKER) (test dwbb=362) 18 U/L 5-34 ALT (SGPT) (BEAKER) (test ytsn=305) 7 U/L 6-55 Specimen slightly ictericPROTHROMBIN [id number] 04:30:00 Test Item Value Reference Range Comments PROTIME (BEAKER) (test yabs=394) 23.8 seconds 11.7-14.7 INR (BEAKER) (test mwzj=060) 2.1 <=5.9 RECOMMENDED COUMADIN/WARFARIN INR THERAPY RANGESSTANDARD DOSE: 2.0 - 3.0 Includes: PROPHYLAXIS forvenous thrombosis, systemic embolization; TREATMENT for venous thrombosis and/or pulmonary embolus.HIGH RISK: Target INR is 2.5-3.5 for patients with mechanical heart valves.CBC W/PLT COUNT & AUTO [id number] 04:19:00 Test Item Value Reference Range Comments WHITE BLOOD CELL COUNT (BEAKER) (test knmi=341) 4.0 K/ L 3.5-10.5 RED BLOOD CELL COUNT (BEAKER) (test gufx=207) 2.60 M/ L 4.63-6.08 HEMOGLOBIN (BEAKER) (test vygj=485) 8.2 GM/DL 13.7-17.5 HEMATOCRIT (BEAKER) (test iaee=162) 24.6 % 40.1-51.0 MEAN CORPUSCULAR VOLUME (BEAKER) (test gdyf=074) 94.6 fL 79.0-92.2 MEAN CORPUSCULAR HEMOGLOBIN (BEAKER) (test 31.5 pg 25.7-32.2 mxre=953) MEAN CORPUSCULAR HEMOGLOBIN CONC (BEAKER) (test 33.3 GM/DL 32.3-36.5 ypdi=468) RED CELL DISTRIBUTION WIDTH (BEAKER) (test 18.1 % 11.6-14.4 izvu=489) PLATELET COUNT (BEAKER) (test fijf=475) 46 K/CU MM 150-450 MEAN PLATELET VOLUME (BEAKER) (test exwx=530) 9.1 fL 9.4-12.4 NUCLEATED RED BLOOD CELLS (BEAKER) (test 0 /100 WBC 0-0 mrzx=146) NEUTROPHILS RELATIVE PERCENT (BEAKER) (test 62 % zily=821) LYMPHOCYTES RELATIVE PERCENT (BEAKER) (test 13 % xkgc=980) MONOCYTES RELATIVE PERCENT (BEAKER) (test 21 % nwhh=384) EOSINOPHILS RELATIVE PERCENT (BEAKER) (test 3 % sbsm=163) BASOPHILS RELATIVE PERCENT (BEAKER) (test 0 % kebl=623) NEUTROPHILS ABSOLUTE COUNT (BEAKER) (test 2.49 K/ L 1.78-5.38 ennj=393) LYMPHOCYTES ABSOLUTE COUNT (BEAKER) (test 0.53 K/ L 1.32-3.57 jpsy=902) MONOCYTES ABSOLUTE COUNT (BEAKER) (test jfel=032) 0.86 K/ L 0.30-0.82 EOSINOPHILS ABSOLUTE COUNT (BEAKER) (test 0.10 K/ L 0.04-0.54 hsyu=977) BASOPHILS ABSOLUTE COUNT (BEAKER) (test psvm=082) 0.01 K/ L 0.01-0.08 IMMATURE GRANULOCYTES-RELATIVE PERCENT (BEAKER) 1 % 0-1 (test qwts=3476) TISSUE [id number] 14:55:00Surgical Pathology Report Case: [id number] Authorizing Provider: Karina Rain MD Collected: 05/08/20181999 Ordering Location: [address] Received: 05/11/2018 0837 Service Pathologist: Jesús Craig MD Specimen: Bone L3 VERTEBRAL BODYBONE BIOPSY:BONE AND BONE MARROW, NEGATIVE FOR MALIGNANCY.SEE DIAGNOSTIC COMMENT. Signing Pathologist Direct Phone Line: [phone] signed by Jesús Craig MD on 05/12/2018 [...] as thesampled material may not be fully labor relations representative. This case was discussed with Dr. Andrea Mason, manager epic.[id number], [id number], [id number], [id number] fracture of body thoracic vertebralL3 vertebral body [...] developed and its performance characteristics determined by [facility]. It has not been cleared [...] clinical laboratory testing.RAD, CHEST, 1 VIEW, NON [id number] 13:56:00Reason for exam:->edemaShould this be performed at the bedside?->YesFINAL REPORT Chest one view compared to December 30 Discussion: Ill-defined bilateral airspace opacities are worse since the previous study although this may reflect a lesser inspiratory effort. No gross effusion or pneumothorax. Signed: Karina Pugh Verified Date/Time : 05/12/2018 13:56:44 Reading Location: [address] Consult Reading Room CALCIUM, [id number] 06:58:00 Test Item Value Reference Range Comments CALCIUM IONIZED (BEAKER) (test foxr=590) 1.11 mmol/L 1.12-1.27 PH, BLOOD (BEAKER) (test klof=9853) 7.36 [id number] 06:31:00 Test Item Value Reference Range Comments PHOSPHORUS (BEAKER) (test gatb=988) 2.9 mg/dL 2.3-4.7 [id number] 06:31:00 Test Item Value Reference Range Comments MAGNESIUM (BEAKER) (test rfto=052) 1.9 mg/dL 1.6-2.6 COMPREHENSIVE METABOLIC [id number] 06:31:00 Test Item Value Reference Range Comments TOTAL PROTEIN (BEAKER) 5.8 gm/dL 6.0-8.3 (test blux=379) ALBUMIN (BEAKER) (test 4.0 g/dL 3.5-5.0 dqjh=3860) ALKALINE PHOSPHATASE 124 U/L 40-150 (BEAKER) (test viaw=651) BILIRUBIN TOTAL (BEAKER) 4.3 mg/dL 0.2-1.2 (test hzrg=221) SODIUM (BEAKER) (test 128 meq/L 136-145 jqve=370) POTASSIUM (BEAKER) (test 3.9 meq/L 3.5-5.1 cwas=735) CHLORIDE (BEAKER) (test 92 meq/L 98-107 bnff=276) CO2 (BEAKER) (test 26 meq/L 22-29 umdo=706) BLOOD UREA NITROGEN 21 mg/dL 7-21 (BEAKER) (test dnvj=913) CREATININE (BEAKER) (test 1.54 mg/dL 0.57-1.25 gsgd=501) GLUCOSE RANDOM (BEAKER) 113 mg/dL 70-105 (test rkoh=706) CALCIUM (BEAKER) (test 9.5 mg/dL 8.4-10.2 esek=228) AST (SGOT) (BEAKER) (test 16 U/L 5-34 bhaa=188) ALT (SGPT) (BEAKER) (test 6 U/L 6-55 ufmm=890) EGFR (BEAKER) (test 48 mL/min/1.73 sq m ESTIMATED GFR IS NOT yjwp=7501) ACCURATE CREATININE CLEARANCE IN PREDICTING GLOMERULAR FILTRATION RATE. ESTIMATED GFR IS NOT APPLICABLE FOR DIALYSIS PATIENTS. Specimen slightly ictericHEPATIC FUNCTION [id number] 06:31:00 Test Item Value Reference Range Comments TOTAL PROTEIN (BEAKER) (test tqiu=683) 5.8 gm/dL 6.0-8.3 ALBUMIN (BEAKER) (test dysu=7855) 4.0 g/dL 3.5-5.0 BILIRUBIN TOTAL (BEAKER) (test ocmf=620) 4.3 mg/dL 0.2-1.2 BILIRUBIN DIRECT (BEAKER) (test pesd=439) 2.3 mg/dL 0.1-0.5 ALKALINE PHOSPHATASE (BEAKER) (test xido=800) 124 U/L 40-150 AST (SGOT) (BEAKER) (test qezd=912) 16 U/L 5-34 ALT (SGPT) (BEAKER) (test grjh=397) 6 U/L 6-55 Specimen slightly ictericPROTHROMBIN [id number] 06:16:00 Test Item Value Reference Range Comments PROTIME (BEAKER) (test kszt=441) 22.3 seconds 11.7-14.7 INR (BEAKER) (test zcnn=454) 2.0 <=5.9 RECOMMENDED COUMADIN/WARFARIN INR THERAPY RANGESSTANDARD DOSE: 2.0 - 3.0 Includes: PROPHYLAXIS forvenous thrombosis, systemic embolization; TREATMENT for venous thrombosis and/or pulmonary embolus.HIGH RISK: Target INR is 2.5-3.5 for patients with mechanical heart valves.CBC W/PLT COUNT & AUTO [id number] 06:00:00 Test Item Value Reference Range Comments WHITE BLOOD CELL COUNT (BEAKER) (test dtmf=987) 4.3 K/ L 3.5-10.5 RED BLOOD CELL COUNT (BEAKER) (test sjsw=753) 2.68 M/ L 4.63-6.08 HEMOGLOBIN (BEAKER) (test ggww=367) 8.3 GM/DL 13.7-17.5 HEMATOCRIT (BEAKER) (test yxow=986) 25.0 % 40.1-51.0 MEAN CORPUSCULAR VOLUME (BEAKER) (test negh=614) 93.3 fL 79.0-92.2 MEAN CORPUSCULAR HEMOGLOBIN (BEAKER) (test 31.0 pg 25.7-32.2 jyvn=356) MEAN CORPUSCULAR HEMOGLOBIN CONC (BEAKER) (test 33.2 GM/DL 32.3-36.5 ovcw=488) RED CELL DISTRIBUTION WIDTH (BEAKER) (test 17.4 % 11.6-14.4 ysoy=374) PLATELET COUNT (BEAKER) (test qypu=604) 57 K/CU MM 150-450 MEAN PLATELET VOLUME (BEAKER) (test tkbh=199) 9.3 fL 9.4-12.4 NUCLEATED RED BLOOD CELLS (BEAKER) (test 0 /100 WBC 0-0 uvef=021) NEUTROPHILS RELATIVE PERCENT (BEAKER) (test 61 % tfyk=653) LYMPHOCYTES RELATIVE PERCENT (BEAKER) (test 14 % udwi=189) MONOCYTES RELATIVE PERCENT (BEAKER) (test 17 % vjcc=858) EOSINOPHILS RELATIVE PERCENT (BEAKER) (test 7 % coaf=103) BASOPHILS RELATIVE PERCENT (BEAKER) (test 1 % rhap=969) NEUTROPHILS ABSOLUTE COUNT (BEAKER) (test 2.62 K/ L 1.78-5.38 ttaw=290) LYMPHOCYTES ABSOLUTE COUNT (BEAKER) (test 0.59 K/ L 1.32-3.57 xica=882) MONOCYTES ABSOLUTE COUNT (BEAKER) (test tqva=818) 0.73 K/ L 0.30-0.82 EOSINOPHILS ABSOLUTE COUNT (BEAKER) (test 0.29 K/ L 0.04-0.54 fhqe=730) BASOPHILS ABSOLUTE COUNT (BEAKER) (test eeon=163) 0.02 K/ L 0.01-0.08 IMMATURE GRANULOCYTES-RELATIVE PERCENT (BEAKER) 1 % 0-1 (test fmzo=6519) BLOOD [id number] 00:00:00 Test Item Value Reference Range Comments CULTURE (BEAKER) (test tyha=2265) No growth in 5 days BLOOD [id number] 00:00:00 Test Item Value Reference Range Comments CULTURE (BEAKER) (test nevf=8712) No growth in 5 days OSMOLALITY, [id number] 18:16:00 Test Item Value Reference Range Comments OSMOLALITY URINE (BEAKER) (test kstq=442) 312 mOsm/kg 40-1400 BODY FLUID CELL COUNT WITH [id number] 17:17:00 Test Item Value Reference Range Comments APPEARANCE FLUID (BEAKER) (test yshr=024) Clear Clear COLOR FLUID (BEAKER) (test hioz=193) Yellow Colorless, Straw RBC FLUID (BEAKER) (test kxus=778) 150 /cu mm <=1 ADJUSTED WBC FLUID (BEAKER) (test bpfz=8005) 72 /cu mm <=5 LINING CELLS (BEAKER) (test mcei=8363) 2 /cu mm <=1 NEUTROPHILS FLUID (BEAKER) (test twxa=9235) 3 % LYMPHS FLUID (BEAKER) (test szag=888) 28 % MONO/MACROPHAGE FLUID (BEAKER) (test cjsk=713) 68 % EOSINOPHILS FLUID (BEAKER) (test vbpp=867) 1 % BASO FLUID (BEAKER) (test bcql=211) 0 % CONTAINER BODY FLUID (BEAKER) (test wvnu=2705) EDTA Tube SODIUM, RANDOM [id number] 17:09:00 Test Item Value Reference Range Comments SODIUM URINE (BEAKER) (test coac=760) < meq/L Reference Range: No NormalsURINALYSIS W/ [id number] 17:08:00 Test Item Value Reference Range Comments COLOR (BEAKER) (test bkeh=454) Yellow CLARITY (BEAKER) (test wlmm=254) Clear SPECIFIC GRAVITY UA (BEAKER) (test tehe=325) 1.012 1.001-1.035 PH UA (BEAKER) (test brzq=509) 5.5 5.0-8.0 PROTEIN UA (BEAKER) (test dxok=974) Negative Negative GLUCOSE UA (BEAKER) (test pmsu=173) Negative Negative KETONES UA (BEAKER) (test vlux=597) Negative Negative BILIRUBIN UA (BEAKER) (test pziw=658) Negative Negative BLOOD UA (BEAKER) (test xpad=316) Negative Negative NITRITE UA (BEAKER) (test pqqz=800) Negative Negative LEUKOCYTE ESTERASE UA (BEAKER) (test cyze=807) Negative Negative UROBILINOGEN UA (BEAKER) (test vyej=178) 2.0 mg/dL 0.2-1.0 RBC UA (BEAKER) (test wopa=942) 0 /HPF WBC UA (BEAKER) (test bfxh=046) 1 /HPF MUCUS (BEAKER) (test ygln=2299) Rare HYALINE CASTS (BEAKER) (test epyc=188) 15 /LPF SOURCE(BEAKER) (test hgdx=7042) CREATININE, RANDOM [id number] 17:05:00 Test Item Value Reference Range Comments CREATININE URINE ([place]) (test ovkq=781) 116.1 mg/dL Reference Range: No NormalsPROTEIN, RANDOM [id number] 17:05:00 Test Item Value Reference Range Comments PROTEIN, URINE (BEAKER) (test nwrh=8093) 7 mg/dL 0-14 RAD, SPINE, THORACIC, 2 [id number] 13:53:00Reason for exam:->back pain, s/p kyphoplastyFINAL REPORT [...] Aristeo Xiong Verified Date/Time: 13:53:06 Reading Location: [facility] Reading Room RAD, SPINE, LUMBAR, 2 OR 3 [id number] 13:53:00Reason for exam:->back pain, s/p kyphoplastyFINAL REPORT [...] Aristeo Xiongort Verified Date/Time: 13:53:06 Reading [facility] U/S, [id number] 12:52:00Limit to 4L due to AKIReason for exam:-> ascitesShould this be performed at the bedside?->NoFINAL REPORT Ultrasound guided paracentesis, 05/11/2018. Clinical History: Ascites. Sedation: None. Offset Printer: Elle. Ssds Mk 2 Advanced Operator: None. Estimated Blood Loss: < 1 cc. [...] was achieved with 1% lidocaine, a 5 [place]ian one-step catheter was advanced into the peritoneal cavity under ultrasound guidance. After completion of drainage, the catheter was removed. There was no evidence of complication. Patient Disposition: The patient was discharged from the ultrasound department after the paracentesis, in good condition. Impression: Successful ultrasound guided paracentesis. Signed: Elizabeth Almeidaort Verified Date/Time: 05/11/2018 12:52:57 Reading Location: [address] Ultrasound Reading Room MISCELLANEOUS LAB [id number] 10:45:00 Test Item Value Reference Range Comments SCAN RESULT (test [id number]) [id number] 07:31:00 Test Item Value Reference Range Comments PHOSPHORUS (BEAKER) (test rhnw=520) 2.7 mg/dL 2.3-4.7 [id number] 07:31:00 Test Item Value Reference Range Comments MAGNESIUM (BEAKER) (test arln=439) 1.8 mg/dL 1.6-2.6 COMPREHENSIVE METABOLIC [id number] 07:31:00 Test Item Value Reference Range Comments TOTAL PROTEIN (BEAKER) 5.5 gm/dL 6.0-8.3 (test kllq=534) ALBUMIN (BEAKER) (test 3.5 g/dL 3.5-5.0 raiw=0998) ALKALINE PHOSPHATASE 118 U/L 40-150 (BEAKER) (test lpks=966) BILIRUBIN TOTAL (BEAKER) 5.1 mg/dL 0.2-1.2 (test mkuf=761) SODIUM (BEAKER) (test 123 meq/L 136-145 xxvs=622) POTASSIUM (BEAKER) (test 4.1 meq/L 3.5-5.1 kihx=678) CHLORIDE (BEAKER) (test 91 meq/L 98-107 enwe=009) CO2 (BEAKER) (test 25 meq/L 22-29 kryv=530) BLOOD UREA NITROGEN 21 mg/dL 7-21 (BEAKER) (test vyma=293) CREATININE (BEAKER) (test 1.59 mg/dL 0.57-1.25 ddjr=971) GLUCOSE RANDOM (BEAKER) 121 mg/dL 70-105 (test aqsw=473) CALCIUM (BEAKER) (test 9.4 mg/dL 8.4-10.2 rrum=800) AST (SGOT) (BEAKER) (test 17 U/L 5-34 kota=998) ALT (SGPT) (BEAKER) (test 8 U/L 6-55 ftoy=738) EGFR (BEAKER) (test 46 mL/min/1.73 sq m ESTIMATED GFR IS NOT jtgp=7854) ACCURATE CREATININE CLEARANCE IN PREDICTING GLOMERULAR FILTRATION RATE. ESTIMATED GFR IS NOT APPLICABLE FOR DIALYSIS PATIENTS. Specimen moderately ictericHEPATIC FUNCTION [id number] 07:31:00 Test Item Value Reference Range Comments TOTAL PROTEIN (BEAKER) (test bulb=787) 5.5 gm/dL 6.0-8.3 ALBUMIN (BEAKER) (test urad=9950) 3.5 g/dL 3.5-5.0 BILIRUBIN TOTAL (BEAKER) (test trbz=387) 5.1 mg/dL 0.2-1.2 BILIRUBIN DIRECT (BEAKER) (test cvyn=604) 2.3 mg/dL 0.1-0.5 ALKALINE PHOSPHATASE (BEAKER) (test rjzq=395) 118 U/L 40-150 AST (SGOT) (BEAKER) (test bdbq=950) 17 U/L 5-34 ALT (SGPT) (BEAKER) (test ncbd=012) 8 U/L 6-55 Specimen moderately ictericPROTHROMBIN [id number] 07:17:00 Test Item Value Reference Range Comments PROTIME (BEAKER) (test efop=830) 23.8 seconds 11.7-14.7 INR (BEAKER) (test onwx=812) 2.1 <=5.9 RECOMMENDED COUMADIN/WARFARIN INR THERAPY RANGESSTANDARD DOSE: 2.0 - 3.0 Includes: PROPHYLAXIS forvenous thrombosis, systemic embolization; TREATMENT for venous thrombosis and/or pulmonary embolus.HIGH RISK: Target INR is 2.5-3.5 for patients with mechanical heart valves.CBC W/PLT COUNT & AUTO [id number] 07:15:00 Test Item Value Reference Range Comments WHITE BLOOD CELL COUNT (BEAKER) (test trva=388) 4.4 K/ L 3.5-10.5 RED BLOOD CELL COUNT (BEAKER) (test xlid=506) 2.52 M/ L 4.63-6.08 HEMOGLOBIN (BEAKER) (test npmj=233) 7.9 GM/DL 13.7-17.5 HEMATOCRIT (BEAKER) (test tywq=157) 23.7 % 40.1-51.0 MEAN CORPUSCULAR VOLUME (BEAKER) (test qrjq=630) 94.0 fL 79.0-92.2 MEAN CORPUSCULAR HEMOGLOBIN (BEAKER) (test 31.3 pg 25.7-32.2 qcnv=465) MEAN CORPUSCULAR HEMOGLOBIN CONC (BEAKER) (test 33.3 GM/DL 32.3-36.5 tawo=838) RED CELL DISTRIBUTION WIDTH (BEAKER) (test 17.6 % 11.6-14.4 eryl=087) PLATELET COUNT (BEAKER) (test zszq=759) 52 K/CU MM 150-450 MEAN PLATELET VOLUME (BEAKER) (test cofi=914) 9.2 fL 9.4-12.4 NUCLEATED RED BLOOD CELLS (BEAKER) (test 0 /100 WBC 0-0 syoq=752) NEUTROPHILS RELATIVE PERCENT (BEAKER) (test 62 % wwcm=016) LYMPHOCYTES RELATIVE PERCENT (BEAKER) (test 10 % sfbm=040) MONOCYTES RELATIVE PERCENT (BEAKER) (test 19 % tssh=630) EOSINOPHILS RELATIVE PERCENT (BEAKER) (test 8 % kqth=055) BASOPHILS RELATIVE PERCENT (BEAKER) (test 0 % ipcz=641) NEUTROPHILS ABSOLUTE COUNT (BEAKER) (test 2.72 K/ L 1.78-5.38 plck=084) LYMPHOCYTES ABSOLUTE COUNT (BEAKER) (test 0.42 K/ L 1.32-3.57 spql=940) MONOCYTES ABSOLUTE COUNT (BEAKER) (test exic=636) 0.84 K/ L 0.30-0.82 EOSINOPHILS ABSOLUTE COUNT (BEAKER) (test 0.34 K/ L 0.04-0.54 pirm=198) BASOPHILS ABSOLUTE COUNT (BEAKER) (test xyew=955) 0.00 K/ L 0.01-0.08 IMMATURE GRANULOCYTES-RELATIVE PERCENT (BEAKER) 1 % 0-1 (test zahg=8058) CALCIUM, [id number] 07:09:00 Test Item Value Reference Range Comments CALCIUM IONIZED (BEAKER) (test thws=293) 1.09 mmol/L 1.12-1.27 PH, BLOOD (BEAKER) (test kneh=7949) 7.36 BASIC METABOLIC [id number] 17:49:00 Test Item Value Reference Range Comments SODIUM (BEAKER) (test 124 meq/L 136-145 rtug=041) POTASSIUM (BEAKER) (test 3.8 meq/L 3.5-5.1 qewv=480) CHLORIDE (BEAKER) (test 91 meq/L 98-107 vprc=777) CO2 (BEAKER) (test 22 meq/L 22-29 jhhz=654) BLOOD UREA NITROGEN 19 mg/dL 7-21 (BEAKER) (test egot=178) CREATININE (BEAKER) (test 1.49 mg/dL 0.57-1.25 gdel=218) GLUCOSE RANDOM (BEAKER) 105 mg/dL 70-105 (test pjcz=679) CALCIUM (BEAKER) (test 9.3 mg/dL 8.4-10.2 lhbb=722) EGFR (BEAKER) (test 50 mL/min/1.73 sq m ESTIMATED GFR IS NOT qtsu=5834) ACCURATE CREATININE CLEARANCE IN PREDICTING GLOMERULAR FILTRATION RATE. ESTIMATED GFR IS NOT APPLICABLE FOR DIALYSIS PATIENTS. Call [id number] slightly ictericCALCIUM, [id number] 06:59:00 Test Item Value Reference Range Comments CALCIUM IONIZED (BEAKER) (test hqpu=943) 1.00 mmol/L 1.12-1.27 PH, BLOOD (BEAKER) (test xvmz=7713) 7.47 [id number] 05:42:00 Test Item Value Reference Range Comments PHOSPHORUS (BEAKER) (test uakp=367) 2.7 mg/dL 2.3-4.7 [id number] 05:42:00 Test Item Value Reference Range Comments MAGNESIUM (BEAKER) (test ixyb=982) 1.7 mg/dL 1.6-2.6 HEPATIC FUNCTION [id number] 05:42:00 Test Item Value Reference Range Comments TOTAL PROTEIN (BEAKER) (test topl=627) 5.2 gm/dL 6.0-8.3 ALBUMIN (BEAKER) (test pwpq=9920) 3.5 g/dL 3.5-5.0 BILIRUBIN TOTAL (BEAKER) (test dwtz=378) 3.4 mg/dL 0.2-1.2 BILIRUBIN DIRECT (BEAKER) (test lswr=282) 1.8 mg/dL 0.1-0.5 ALKALINE PHOSPHATASE (BEAKER) (test ulgh=443) 106 U/L 40-150 AST (SGOT) (BEAKER) (test rtef=610) 15 U/L 5-34 ALT (SGPT) (BEAKER) (test sack=148) 7 U/L 6-55 Specimen slightly ictericPROTHROMBIN [id number] 05:22:00 Test Item Value Reference Range Comments PROTIME (BEAKER) (test yubk=331) 22.6 seconds 11.7-14.7 INR (BEAKER) (test gmmx=379) 2.0 <=5.9 RECOMMENDED COUMADIN/WARFARIN INR THERAPY RANGESSTANDARD DOSE: 2.0 - 3.0 Includes: PROPHYLAXIS forvenous thrombosis, systemic embolization; TREATMENT for venous thrombosis and/or pulmonary embolus.HIGH RISK: Target INR is 2.5-3.5 for patients with mechanical heart valves.CBC W/PLT COUNT & AUTO [id number] 05:10:00 Test Item Value Reference Range Comments WHITE BLOOD CELL COUNT (BEAKER) (test bolg=462) 5.6 K/ L 3.5-10.5 RED BLOOD CELL COUNT (BEAKER) (test mmle=559) 2.09 M/ L 4.63-6.08 HEMOGLOBIN (BEAKER) (test mglb=043) 6.5 GM/DL 13.7-17.5 HEMATOCRIT (BEAKER) (test yipy=966) 19.8 % 40.1-51.0 MEAN CORPUSCULAR VOLUME (BEAKER) (test pcuv=723) 94.7 fL 79.0-92.2 MEAN CORPUSCULAR HEMOGLOBIN (BEAKER) (test 31.1 pg 25.7-32.2 hrnv=768) MEAN CORPUSCULAR HEMOGLOBIN CONC (BEAKER) (test 32.8 GM/DL 32.3-36.5 odra=965) RED CELL DISTRIBUTION WIDTH (BEAKER) (test 17.3 % 11.6-14.4 jrpn=339) PLATELET COUNT (BEAKER) (test dhni=878) 57 K/CU MM 150-450 MEAN PLATELET VOLUME (BEAKER) (test xhnq=176) 8.9 fL 9.4-12.4 NUCLEATED RED BLOOD CELLS (BEAKER) (test 0 /100 WBC 0-0 guek=561) NEUTROPHILS RELATIVE PERCENT (BEAKER) (test 71 % skjp=006) LYMPHOCYTES RELATIVE PERCENT (BEAKER) (test 9 % opmr=296) MONOCYTES RELATIVE PERCENT (BEAKER) (test 16 % nmic=268) EOSINOPHILS RELATIVE PERCENT (BEAKER) (test 3 % ecqk=693) BASOPHILS RELATIVE PERCENT (BEAKER) (test 0 % hzci=772) NEUTROPHILS ABSOLUTE COUNT (BEAKER) (test 3.93 K/ L 1.78-5.38 wwxp=950) LYMPHOCYTES ABSOLUTE COUNT (BEAKER) (test 0.52 K/ L 1.32-3.57 tujz=687) MONOCYTES ABSOLUTE COUNT (BEAKER) (test iqgg=541) 0.87 K/ L 0.30-0.82 EOSINOPHILS ABSOLUTE COUNT (BEAKER) (test 0.19 K/ L 0.04-0.54 xfnb=672) BASOPHILS ABSOLUTE COUNT (BEAKER) (test lrez=906) 0.01 K/ L 0.01-0.08 IMMATURE GRANULOCYTES-RELATIVE PERCENT (BEAKER) 1 % 0-1 (test rbgu=3119) HEPATIC FUNCTION [id number] 11:05:00 Test Item Value Reference Range Comments TOTAL PROTEIN (BEAKER) (test tofw=705) 5.7 gm/dL 6.0-8.3 ALBUMIN (BEAKER) (test sleu=4879) 3.9 g/dL 3.5-5.0 BILIRUBIN TOTAL (BEAKER) (test vltl=945) 4.9 mg/dL 0.2-1.2 BILIRUBIN DIRECT (BEAKER) (test eemp=065) 2.0 mg/dL 0.1-0.5 ALKALINE PHOSPHATASE (BEAKER) (test nsmp=924) 98 U/L 40-150 AST (SGOT) (BEAKER) (test ddur=831) 19 U/L 5-34 ALT (SGPT) (BEAKER) (test totp=416) 8 U/L 6-55 Specimen moderately ictericBASIC METABOLIC [id number] 10:06:00 Test Item Value Reference Range Comments SODIUM (BEAKER) (test 132 meq/L 136-145 ryzc=285) POTASSIUM (BEAKER) (test 5.0 meq/L 3.5-5.1 zjan=107) CHLORIDE (BEAKER) (test 97 meq/L 98-107 salg=367) CO2 (BEAKER) (test 25 meq/L 22-29 vibf=681) BLOOD UREA NITROGEN 17 mg/dL 7-21 (BEAKER) (test oxbk=795) CREATININE (BEAKER) (test 1.33 mg/dL 0.57-1.25 vbxc=590) GLUCOSE RANDOM (BEAKER) 181 mg/dL 70-105 (test djwd=745) CALCIUM (BEAKER) (test 9.4 mg/dL 8.4-10.2 omzi=170) EGFR (BEAKER) (test 56 mL/min/1.73 sq m ESTIMATED GFR IS NOT fncz=1085) ACCURATE CREATININE CLEARANCE IN PREDICTING GLOMERULAR FILTRATION RATE. ESTIMATED GFR IS NOT APPLICABLE FOR DIALYSIS PATIENTS. Specimen moderately ictericCBC W/PLT COUNT & AUTO [id number] 07: 45:00 Test Item Value Reference Range Comments WHITE BLOOD CELL COUNT (BEAKER) (test hlzs=062) 3.4 K/ L 3.5-10.5 RED BLOOD CELL COUNT (BEAKER) (test ofgv=616) 2.26 M/ L 4.63-6.08 HEMOGLOBIN (BEAKER) (test fnzn=801) 7.0 GM/DL 13.7-17.5 HEMATOCRIT (BEAKER) (test weqf=891) 21.6 % 40.1-51.0 MEAN CORPUSCULAR VOLUME (BEAKER) (test smdp=023) 95.6 fL 79.0-92.2 MEAN CORPUSCULAR HEMOGLOBIN (BEAKER) (test 31.0 pg 25.7-32.2 fxof=826) MEAN CORPUSCULAR HEMOGLOBIN CONC (BEAKER) (test 32.4 GM/DL 32.3-36.5 bmfv=176) RED CELL DISTRIBUTION WIDTH (BEAKER) (test 17.3 % 11.6-14.4 onac=706) PLATELET COUNT (BEAKER) (test cozk=663) 66 K/CU MM 150-450 MEAN PLATELET VOLUME (BEAKER) (test cgpo=619) 9.8 fL 9.4-12.4 NUCLEATED RED BLOOD CELLS (BEAKER) (test 0 /100 WBC 0-0 ecav=636) NEUTROPHILS RELATIVE PERCENT (BEAKER) (test 87 % jqmh=918) LYMPHOCYTES RELATIVE PERCENT (BEAKER) (test 7 % tubf=301) MONOCYTES RELATIVE PERCENT (BEAKER) (test 5 % iwuh=768) EOSINOPHILS RELATIVE PERCENT (BEAKER) (test 0 % tygj=179) BASOPHILS RELATIVE PERCENT (BEAKER) (test 0 % fsnb=033) NEUTROPHILS ABSOLUTE COUNT (BEAKER) (test 2.94 K/ L 1.78-5.38 puvy=166) LYMPHOCYTES ABSOLUTE COUNT (BEAKER) (test 0.23 K/ L 1.32-3.57 uure=860) MONOCYTES ABSOLUTE COUNT (BEAKER) (test nyjx=614) 0.17 K/ L 0.30-0.82 EOSINOPHILS ABSOLUTE COUNT (BEAKER) (test 0.00 K/ L 0.04-0.54 yfsr=785) BASOPHILS ABSOLUTE COUNT (BEAKER) (test khie=926) 0.00 K/ L 0.01-0.08 IMMATURE GRANULOCYTES-RELATIVE PERCENT (BEAKER) 1 % 0-1 (test xlhz=1600) PROTHROMBIN [id number] 06:06:00 Test Item Value Reference Range Comments PROTIME (BEAKER) (test zieh=949) 19.1 seconds 11.7-14.7 INR (BEAKER) (test urkw=771) 1.6 <=5.9 RECOMMENDED COUMADIN/WARFARIN INR THERAPY RANGESSTANDARD DOSE: 2.0 - 3.0 Includes: PROPHYLAXIS forvenous thrombosis, systemic embolization; TREATMENT for venous thrombosis and/or pulmonary embolus.HIGH RISK: Target INR is 2.5-3.5 for patients with mechanical heart valves.[id number] 15:35:00 Test Item Value Reference Range Comments PROTIME (BEAKER) (test thle=980) 20.3 seconds 11.7-14.7 INR (BEAKER) (test jbut=726) 1.7 <=5.9 PARTIAL THROMBOPLASTIN TIME (BEAKER) (test 46.2 seconds 22.5-36.0 ygrd=795) RECOMMENDED COUMADIN/WARFARIN INR THERAPY RANGESSTANDARD DOSE: 2.0 - 3.0 Includes: PROPHYLAXIS forvenous thrombosis, systemic embolization; TREATMENT for venous thrombosis and/or pulmonary embolus.HIGH RISK: Target INR is 2.5-3.5 for patients with mechanical heart valves.30 minutes after administration of Qdrqcad00 minutes after administration of KcentraPROTHROMBIN TIME/[id number] 15:33:00 Test Item Value Reference Range Comments PROTIME (BEAKER) (test byir=823) 20.1 seconds 11.7-14.7 INR (BEAKER) (test xwnh=666) 1.7 <=5.9 RECOMMENDED COUMADIN/WARFARIN INR THERAPY RANGESSTANDARD DOSE: 2.0 - 3.0 Includes: PROPHYLAXIS forvenous thrombosis, systemic embolization; TREATMENT for venous thrombosis and/or pulmonary embolus.HIGH RISK: Target INR is 2.5-3.5 for patients with mechanical heart valves.Please draw 30 mins after Kcentra doseBODY FLUID CULTURE + GRAM [id number] 11:29:00 Test Item Value Reference Range Comments CULTURE (BEAKER) (test hfho=6583) No growth GRAM STAIN RESULT (BEAKER) (test <1+ WBCs egpu=3936) GRAM STAIN RESULT (BEAKER) (test No organisms seen agmj=65214) CT, [id number] 10:30:00FINAL REPORT HISTORY : r/o intra abdominal [...] MDReport Verified Date/Time: 05/08/2018 10:30:57 Reading Location: [facility] Diagnostic Imaging Reading Room - [place] [address] CBC W/PLT COUNT & AUTO [id number] 07:27:00 Test Item Value Reference Range Comments WHITE BLOOD CELL COUNT (BEAKER) (test finy=814) 3.1 K/ L 3.5-10.5 RED BLOOD CELL COUNT (BEAKER) (test ulwi=367) 2.27 M/ L 4.63-6.08 HEMOGLOBIN (BEAKER) (test fauh=989) 7.1 GM/DL 13.7-17.5 HEMATOCRIT (BEAKER) (test fumv=149) 21.4 % 40.1-51.0 MEAN CORPUSCULAR VOLUME (BEAKER) (test poke=745) 94.3 fL 79.0-92.2 MEAN CORPUSCULAR HEMOGLOBIN (BEAKER) (test 31.3 pg 25.7-32.2 jyhh=470) MEAN CORPUSCULAR HEMOGLOBIN CONC (BEAKER) (test 33.2 GM/DL 32.3-36.5 uqmy=975) RED CELL DISTRIBUTION WIDTH (BEAKER) (test 17.5 % 11.6-14.4 gtjc=951) PLATELET COUNT (BEAKER) (test hsni=001) 43 K/CU MM 150-450 MEAN PLATELET VOLUME (BEAKER) (test them=209) 8.7 fL 9.4-12.4 NUCLEATED RED BLOOD CELLS (BEAKER) (test 0 /100 WBC 0-0 pgik=768) NEUTROPHILS RELATIVE PERCENT (BEAKER) (test 60 % ocvj=117) LYMPHOCYTES RELATIVE PERCENT (BEAKER) (test 16 % vacp=794) MONOCYTES RELATIVE PERCENT (BEAKER) (test 17 % rnqr=633) EOSINOPHILS RELATIVE PERCENT (BEAKER) (test 7 % ndge=005) BASOPHILS RELATIVE PERCENT (BEAKER) (test 0 % ejml=261) NEUTROPHILS ABSOLUTE COUNT (BEAKER) (test 1.85 K/ L 1.78-5.38 hpxm=446) LYMPHOCYTES ABSOLUTE COUNT (BEAKER) (test 0.48 K/ L 1.32-3.57 eqkv=992) MONOCYTES ABSOLUTE COUNT (BEAKER) (test swas=674) 0.54 K/ L 0.30-0.82 EOSINOPHILS ABSOLUTE COUNT (BEAKER) (test 0.22 K/ L 0.04-0.54 jlhr=708) BASOPHILS ABSOLUTE COUNT (BEAKER) (test vlvn=866) 0.00 K/ L 0.01-0.08 IMMATURE GRANULOCYTES-RELATIVE PERCENT (BEAKER) 0 % 0-1 (test tbnx=1543) CBC W/PLT COUNT & AUTO [id number] 07:26:00 Test Item Value Reference Range Comments WHITE BLOOD CELL COUNT (BEAKER) (test ieuq=679) 2.9 K/ L 3.5-10.5 RED BLOOD CELL COUNT (BEAKER) (test lhbr=778) 2.25 M/ L 4.63-6.08 HEMOGLOBIN (BEAKER) (test kgft=876) 7.1 GM/DL 13.7-17.5 HEMATOCRIT (BEAKER) (test slai=677) 21.4 % 40.1-51.0 MEAN CORPUSCULAR VOLUME (BEAKER) (test xvcz=925) 95.1 fL 79.0-92.2 MEAN CORPUSCULAR HEMOGLOBIN (BEAKER) (test 31.6 pg 25.7-32.2 srfg=655) MEAN CORPUSCULAR HEMOGLOBIN CONC (BEAKER) (test 33.2 GM/DL 32.3-36.5 ghjw=661) RED CELL DISTRIBUTION WIDTH (BEAKER) (test 17.5 % 11.6-14.4 emho=951) PLATELET COUNT (BEAKER) (test udwi=915) 44 K/CU MM 150-450 MEAN PLATELET VOLUME (BEAKER) (test texi=498) 9.3 fL 9.4-12.4 NUCLEATED RED BLOOD CELLS (BEAKER) (test 0 /100 WBC 0-0 ybds=514) NEUTROPHILS RELATIVE PERCENT (BEAKER) (test 59 % ttdl=941) LYMPHOCYTES RELATIVE PERCENT (BEAKER) (test 16 % hrlz=780) MONOCYTES RELATIVE PERCENT (BEAKER) (test 17 % fklo=089) EOSINOPHILS RELATIVE PERCENT (BEAKER) (test 7 % uqxt=953) BASOPHILS RELATIVE PERCENT (BEAKER) (test 0 % tand=545) NEUTROPHILS ABSOLUTE COUNT (BEAKER) (test 1.72 K/ L 1.78-5.38 epkf=480) LYMPHOCYTES ABSOLUTE COUNT (BEAKER) (test 0.46 K/ L 1.32-3.57 rrye=851) MONOCYTES ABSOLUTE COUNT (BEAKER) (test jogw=110) 0.51 K/ L 0.30-0.82 EOSINOPHILS ABSOLUTE COUNT (BEAKER) (test 0.21 K/ L 0.04-0.54 nrvf=167) BASOPHILS ABSOLUTE COUNT (BEAKER) (test jvfh=613) 0.01 K/ L 0.01-0.08 IMMATURE GRANULOCYTES-RELATIVE PERCENT (BEAKER) 1 % 0-1 (test gqsx=1190) BASIC METABOLIC [id number] 07:00:00 Test Item Value Reference Range Comments SODIUM (BEAKER) (test 130 meq/L 136-145 xbef=816) POTASSIUM (BEAKER) (test 3.6 meq/L 3.5-5.1 labu=814) CHLORIDE (BEAKER) (test 94 meq/L 98-107 zyok=235) CO2 (BEAKER) (test 27 meq/L 22-29 kihx=982) BLOOD UREA NITROGEN 19 mg/dL 7-21 (BEAKER) (test mqty=848) CREATININE (BEAKER) (test 1.40 mg/dL 0.57-1.25 caaa=301) GLUCOSE RANDOM (BEAKER) 111 mg/dL 70-105 (test sgvs=624) CALCIUM (BEAKER) (test 9.2 mg/dL 8.4-10.2 smnf=616) EGFR (BEAKER) (test 53 mL/min/1.73 sq m ESTIMATED GFR IS NOT ddth=7586) ACCURATE CREATININE CLEARANCE IN PREDICTING GLOMERULAR FILTRATION RATE. ESTIMATED GFR IS NOT APPLICABLE FOR DIALYSIS PATIENTS. Specimen moderately ictericCOMPREHENSIVE METABOLIC [id number] 07:00:00 Test Item Value Reference Range Comments TOTAL PROTEIN (BEAKER) 5.7 gm/dL 6.0-8.3 (test pikt=873) ALBUMIN (BEAKER) (test 4.0 g/dL 3.5-5.0 rdqg=0935) ALKALINE PHOSPHATASE 92 U/L 40-150 (BEAKER) (test pnhw=573) BILIRUBIN TOTAL (BEAKER) 4.6 mg/dL 0.2-1.2 (test htsm=716) SODIUM (BEAKER) (test 130 meq/L 136-145 pnsd=737) POTASSIUM (BEAKER) (test 3.6 meq/L 3.5-5.1 tcpc=330) CHLORIDE (BEAKER) (test 94 meq/L 98-107 mfzn=211) CO2 (BEAKER) (test 27 meq/L 22-29 fgyw=293) BLOOD UREA NITROGEN 19 mg/dL 7-21 (BEAKER) (test evbj=280) CREATININE (BEAKER) (test 1.40 mg/dL 0.57-1.25 skjm=475) GLUCOSE RANDOM (BEAKER) 111 mg/dL 70-105 (test wagf=442) CALCIUM (BEAKER) (test 9.2 mg/dL 8.4-10.2 zrpj=715) AST (SGOT) (BEAKER) (test 16 U/L 5-34 yamx=425) ALT (SGPT) (BEAKER) (test 6 U/L 6-55 kuur=490) EGFR (BEAKER) (test 53 mL/min/1.73 sq m ESTIMATED GFR IS NOT oakq=8846) ACCURATE CREATININE CLEARANCE IN PREDICTING GLOMERULAR FILTRATION RATE. ESTIMATED GFR IS NOT APPLICABLE FOR DIALYSIS PATIENTS. Specimen moderately ictericHEPATIC FUNCTION [id number] 07:00:00 Test Item Value Reference Range Comments TOTAL PROTEIN (BEAKER) (test gped=339) 5.7 gm/dL 6.0-8.3 ALBUMIN (BEAKER) (test qqdb=7634) 4.0 g/dL 3.5-5.0 BILIRUBIN TOTAL (BEAKER) (test pmpk=966) 4.6 mg/dL 0.2-1.2 BILIRUBIN DIRECT (BEAKER) (test csef=004) 1.8 mg/dL 0.1-0.5 ALKALINE PHOSPHATASE (BEAKER) (test tpqa=409) 92 U/L 40-150 AST (SGOT) (BEAKER) (test mdfd=439) 16 U/L 5-34 ALT (SGPT) (BEAKER) (test lwvb=107) 6 U/L 6-55 Specimen moderately [id number] 06:57:00 Test Item Value Reference Range Comments PARTIAL THROMBOPLASTIN TIME (BEAKER) (test 47.9 seconds 22.5-36.0 pejh=982) PROTHROMBIN [id number] 06:55:00 Test Item Value Reference Range Comments PROTIME (BEAKER) (test pkki=542) 23.7 seconds 11.7-14.7 INR (BEAKER) (test szsd=920) 2.1 <=5.9 RECOMMENDED COUMADIN/WARFARIN INR THERAPY RANGESSTANDARD DOSE: 2.0 - 3.0 Includes: PROPHYLAXIS forvenous thrombosis, systemic embolization; TREATMENT for venous thrombosis and/or pulmonary embolus.HIGH RISK: Target INR is 2.5-3.5 for patients with mechanical heart valves.MR, SPINE, LUMBAR, WITHOUT [id number] 16:57:00FINAL REPORT MRI lumbar spine without contrast [...] Bain Verified Date/Time: 05/07/2018 16:57:00 Reading Location: [facility] Radiology Reading Room LACTIC ACID, VENOUS, WHOLE [id number] 14:13:00 Test Item Value Reference Range Comments LACTATE BLOOD VENOUS (2) (BEAKER) (test 2.6 mmol/L 0.5-2.2 bqwb=4679) Effective 02/28/2016: Units/Reference Range ChangeNew: 0.5-2.2 mmol/L Previous: 5 -20 mg/dLSpecimen slightly ictericHEMOGLOBIN AND [id number] 13:51:00 Test Item Value Reference Range Comments HEMOGLOBIN (BEAKER) (test zpve=151) 7.1 GM/DL 13.7-17.5 HEMATOCRIT (BEAKER) (test klmc=350) 21.7 % 40.1-51.0 U/S, RENAL, [id number] 09:48:00Reason for exam:->AKIFINAL REPORT Renal ultrasound Clinical [...] MDReport Verified Date/Time: 05/07/2018 09:48:55 Reading Location: [address] Ultrasound Reading Room Electronically signed by: REECE HAQUE MD on 09:[id number] 09:04:00 Test Item Value Reference Range Comments MAGNESIUM (BEAKER) (test gflb=377) 2.0 mg/dL 1.6-2.6 COMPREHENSIVE METABOLIC [id number] 09:04:00 Test Item Value Reference Range Comments TOTAL PROTEIN (BEAKER) 5.2 gm/dL 6.0-8.3 (test ssyd=863) ALBUMIN (BEAKER) (test 3.5 g/dL 3.5-5.0 injd=7843) ALKALINE PHOSPHATASE 96 U/L 40-150 (BEAKER) (test zjiv=107) BILIRUBIN TOTAL (BEAKER) 4.1 mg/dL 0.2-1.2 (test rtdw=845) SODIUM (BEAKER) (test 129 meq/L 136-145 ecot=002) POTASSIUM (BEAKER) (test 3.8 meq/L 3.5-5.1 ltyo=326) CHLORIDE (BEAKER) (test 96 meq/L 98-107 zwdc=658) CO2 (BEAKER) (test 25 meq/L 22-29 xucn=992) BLOOD UREA NITROGEN 22 mg/dL 7-21 (BEAKER) (test keqp=763) CREATININE (BEAKER) (test 1.57 mg/dL 0.57-1.25 cpbk=250) GLUCOSE RANDOM (BEAKER) 122 mg/dL 70-105 (test vfmb=696) CALCIUM (BEAKER) (test 8.9 mg/dL 8.4-10.2 hmgo=281) AST (SGOT) (BEAKER) (test 15 U/L 5-34 lulw=848) ALT (SGPT) (BEAKER) (test 7 U/L 6-55 mhxd=954) EGFR (BEAKER) (test 47 mL/min/1.73 sq m ESTIMATED GFR IS NOT dhlc=9089) ACCURATE CREATININE CLEARANCE IN PREDICTING GLOMERULAR FILTRATION RATE. ESTIMATED GFR IS NOT APPLICABLE FOR DIALYSIS PATIENTS. Specimen moderately ictericHEPATIC FUNCTION [id number] 09:04:00 Test Item Value Reference Range Comments TOTAL PROTEIN (BEAKER) (test abaj=267) 5.2 gm/dL 6.0-8.3 ALBUMIN (BEAKER) (test xmzv=8540) 3.5 g/dL 3.5-5.0 BILIRUBIN TOTAL (BEAKER) (test cetu=329) 4.1 mg/dL 0.2-1.2 BILIRUBIN DIRECT (BEAKER) (test kfuu=170) 1.8 mg/dL 0.1-0.5 ALKALINE PHOSPHATASE (BEAKER) (test rgtx=818) 96 U/L 40-150 AST (SGOT) (BEAKER) (test dwbn=876) 15 U/L 5-34 ALT (SGPT) (BEAKER) (test lgeo=559) 7 U/L 6-55 Specimen moderately ictericCBC W/PLT COUNT & AUTO [id number] 08: 26:00 Test Item Value Reference Range Comments WHITE BLOOD CELL COUNT (BEAKER) (test gegi=936) 2.7 K/ L 3.5-10.5 RED BLOOD CELL COUNT (BEAKER) (test dxxp=524) 2.13 M/ L 4.63-6.08 HEMOGLOBIN (BEAKER) (test isns=301) 6.8 GM/DL 13.7-17.5 HEMATOCRIT (BEAKER) (test gzgk=683) 19.5 % 40.1-51.0 MEAN CORPUSCULAR VOLUME (BEAKER) (test qmtb=902) 91.5 fL 79.0-92.2 MEAN CORPUSCULAR HEMOGLOBIN (BEAKER) (test 31.9 pg 25.7-32.2 lcyf=943) MEAN CORPUSCULAR HEMOGLOBIN CONC (BEAKER) (test 34.9 GM/DL 32.3-36.5 aquh=558) RED CELL DISTRIBUTION WIDTH (BEAKER) (test 17.5 % 11.6-14.4 vpfh=746) PLATELET COUNT (BEAKER) (test juym=982) 52 K/CU MM 150-450 MEAN PLATELET VOLUME (BEAKER) (test igvz=730) 9.1 fL 9.4-12.4 NUCLEATED RED BLOOD CELLS (BEAKER) (test 0 /100 WBC 0-0 kdja=873) NEUTROPHILS RELATIVE PERCENT (BEAKER) (test 62 % ripr=382) LYMPHOCYTES RELATIVE PERCENT (BEAKER) (test 16 % jceh=683) MONOCYTES RELATIVE PERCENT (BEAKER) (test 17 % hpmg=364) EOSINOPHILS RELATIVE PERCENT (BEAKER) (test 4 % fqpn=660) BASOPHILS RELATIVE PERCENT (BEAKER) (test 0 % xubn=256) NEUTROPHILS ABSOLUTE COUNT (BEAKER) (test 1.66 K/ L 1.78-5.38 tukt=245) LYMPHOCYTES ABSOLUTE COUNT (BEAKER) (test 0.43 K/ L 1.32-3.57 zvgi=125) MONOCYTES ABSOLUTE COUNT (BEAKER) (test maan=738) 0.44 K/ L 0.30-0.82 EOSINOPHILS ABSOLUTE COUNT (BEAKER) (test 0.11 K/ L 0.04-0.54 ahif=712) BASOPHILS ABSOLUTE COUNT (BEAKER) (test ftmj=304) 0.00 K/ L 0.01-0.08 IMMATURE GRANULOCYTES-RELATIVE PERCENT (BEAKER) 1 % 0-1 (test thaf=0974) PROTHROMBIN [id number] 08:08:00 Test Item Value Reference Range Comments PROTIME (BEAKER) (test hbhc=265) 28.3 seconds 11.7-14.7 INR (BEAKER) (test oazt=696) 2.7 <=5.9 RECOMMENDED COUMADIN/WARFARIN INR THERAPY RANGESSTANDARD DOSE: 2.0 - 3.0 Includes: PROPHYLAXIS forvenous thrombosis, systemic embolization; TREATMENT for venous thrombosis and/or pulmonary embolus.HIGH RISK: Target INR is 2.5-3.5 for patients with mechanical heart valves.[id number] 19:47:00 Test Item Value Reference Range Comments SODIUM (BEAKER) (test xprf=170) 129 meq/L 136-145 POTASSIUM (BEAKER) (test gxjl=821) 4.6 meq/L 3.5-5.1 CHLORIDE (BEAKER) (test zwdl=448) 96 meq/L 98-107 CO2 (BEAKER) (test nyic=291) 22 meq/L 22-29 Call [id number] AND [id number] 19:27:00 Test Item Value Reference Range Comments HEMOGLOBIN (BEAKER) (test jbii=706) 7.1 GM/DL 13.7-17.5 HEMATOCRIT (BEAKER) (test xwto=456) 21.4 % 40.1-51.0 Draw after transfusion of 1u RBC, notify hospitalist if Hgb remains less than 7.0HEMOGLOBIN AND [id number] 11:52:00 Test Item Value Reference Range Comments HEMOGLOBIN (BEAKER) (test ytyl=891) 6.3 GM/DL 13.7-17.5 HEMATOCRIT (BEAKER) (test qoaz=367) 18.9 % 40.1-51.0 Notify Hepatology if Hgb< 7.0YUNIOR Sandoval PA-CPager#: .BASIC METABOLIC [id number] 05:55:00 Test Item Value Reference Range Comments SODIUM (BEAKER) (test 129 meq/L 136-145 ihzq=189) POTASSIUM (BEAKER) (test 5.2 meq/L 3.5-5.1 kdkl=782) CHLORIDE (BEAKER) (test 97 meq/L 98-107 eken=876) CO2 (BEAKER) (test 22 meq/L 22-29 qpqb=055) BLOOD UREA NITROGEN 28 mg/dL 7-21 (BEAKER) (test ctso=468) CREATININE (BEAKER) (test 1.95 mg/dL 0.57-1.25 lqoe=151) GLUCOSE RANDOM (BEAKER) 102 mg/dL 70-105 (test vtzj=917) CALCIUM (BEAKER) (test 9.4 mg/dL 8.4-10.2 hedm=802) EGFR (BEAKER) (test 36 mL/min/1.73 sq m ESTIMATED GFR IS NOT iqcb=4424) ACCURATE CREATININE CLEARANCE IN PREDICTING GLOMERULAR FILTRATION RATE. ESTIMATED GFR IS NOT APPLICABLE FOR DIALYSIS PATIENTS. Specimen slightly ictericHEPATIC FUNCTION [id number] 05:55:00 Test Item Value Reference Range Comments TOTAL PROTEIN (BEAKER) (test fexr=969) 5.6 gm/dL 6.0-8.3 ALBUMIN (BEAKER) (test qenm=4593) 3.4 g/dL 3.5-5.0 BILIRUBIN TOTAL (BEAKER) (test xiub=573) 3.7 mg/dL 0.2-1.2 BILIRUBIN DIRECT (BEAKER) (test bybz=532) 2.5 mg/dL 0.1-0.5 ALKALINE PHOSPHATASE (BEAKER) (test yzdz=792) 108 U/L 40-150 AST (SGOT) (BEAKER) (test dddk=719) 17 U/L 5-34 ALT (SGPT) (BEAKER) (test vnrw=009) 7 U/L 6-55 Specimen slightly ictericCBC W/PLT COUNT & AUTO [id number] 05:42 :00 Test Item Value Reference Range Comments WHITE BLOOD CELL COUNT (BEAKER) (test rgjb=532) 3.7 K/ L 3.5-10.5 RED BLOOD CELL COUNT (BEAKER) (test hcek=467) 2.10 M/ L 4.63-6.08 HEMOGLOBIN (BEAKER) (test nqva=107) 6.5 GM/DL 13.7-17.5 HEMATOCRIT (BEAKER) (test iwme=324) 19.8 % 40.1-51.0 MEAN CORPUSCULAR VOLUME (BEAKER) (test jqbg=234) 94.3 fL 79.0-92.2 MEAN CORPUSCULAR HEMOGLOBIN (BEAKER) (test 31.0 pg 25.7-32.2 zsdd=368) MEAN CORPUSCULAR HEMOGLOBIN CONC (BEAKER) (test 32.8 GM/DL 32.3-36.5 kyaw=635) RED CELL DISTRIBUTION WIDTH (BEAKER) (test 16.4 % 11.6-14.4 oiuj=835) PLATELET COUNT (BEAKER) (test qssp=811) 54 K/CU MM 150-450 MEAN PLATELET VOLUME (BEAKER) (test enyl=193) 9.8 fL 9.4-12.4 NUCLEATED RED BLOOD CELLS (BEAKER) (test 0 /100 WBC 0-0 lgnh=654) NEUTROPHILS RELATIVE PERCENT (BEAKER) (test 62 % ymzs=090) LYMPHOCYTES RELATIVE PERCENT (BEAKER) (test 15 % hqhj=686) MONOCYTES RELATIVE PERCENT (BEAKER) (test 18 % uqqv=809) EOSINOPHILS RELATIVE PERCENT (BEAKER) (test 3 % owye=722) BASOPHILS RELATIVE PERCENT (BEAKER) (test 0 % zjus=144) NEUTROPHILS ABSOLUTE COUNT (BEAKER) (test 2.27 K/ L 1.78-5.38 kxfq=797) LYMPHOCYTES ABSOLUTE COUNT (BEAKER) (test 0.56 K/ L 1.32-3.57 hlqn=157) MONOCYTES ABSOLUTE COUNT (BEAKER) (test rzri=158) 0.66 K/ L 0.30-0.82 EOSINOPHILS ABSOLUTE COUNT (BEAKER) (test 0.12 K/ L 0.04-0.54 gjjf=231) BASOPHILS ABSOLUTE COUNT (BEAKER) (test yrtd=172) 0.01 K/ L 0.01-0.08 IMMATURE GRANULOCYTES-RELATIVE PERCENT (BEAKER) 1 % 0-1 (test ujiz=3193) PROTHROMBIN [id number] 05:34:00 Test Item Value Reference Range Comments PROTIME (BEAKER) (test atsc=466) 21.7 seconds 11.7-14.7 INR (BEAKER) (test kwap=076) 1.9 <=5.9 RECOMMENDED COUMADIN/WARFARIN INR THERAPY RANGESSTANDARD DOSE: 2.0 - 3.0 Includes: PROPHYLAXIS forvenous thrombosis, systemic embolization; TREATMENT for venous thrombosis and/or pulmonary embolus.HIGH RISK: Target INR is 2.5-3.5 for patients with mechanical heart valves.EOSINOPHIL SMEAR, [id number] 21: 51:00 Test Item Value Reference Range Comments EOSINOPHIL SMEAR, URINE (BEAKER) (test No EOS seen No EOS seen siwb=0255) BODY FLUID CELL COUNT WITH [id number] 21:42:00 Test Item Value Reference Range Comments APPEARANCE FLUID (BEAKER) (test otlc=530) Hazy Clear COLOR FLUID (BEAKER) (test iesw=443) Yellow Colorless, Straw RBC FLUID (BEAKER) (test hyvi=291) 70 /cu mm <=1 ADJUSTED WBC FLUID (BEAKER) (test sfxb=3109) 44 /cu mm <=5 LINING CELLS (BEAKER) (test ared=0929) 8 /cu mm <=1 NEUTROPHILS FLUID (BEAKER) (test jwqk=6384) 0 % LYMPHS FLUID (BEAKER) (test gygo=493) 11 % MONO/MACROPHAGE FLUID (BEAKER) (test zzqd=521) 89 % EOSINOPHILS FLUID (BEAKER) (test jsrs=904) 0 % BASO FLUID (BEAKER) (test oizd=497) 0 % CONTAINER BODY FLUID (BEAKER) (test xdjj=6972) EDTA Tube OSMOLALITY, [id number] 19:46:00 Test Item Value Reference Range Comments OSMOLALITY URINE (BEAKER) (test gnyg=652) 355 mOsm/kg 40-1400 SODIUM, RANDOM [id number] 19:35:00 Test Item Value Reference Range Comments SODIUM URINE (BEAKER) (test mxxc=261) < meq/L Reference Range: No NormalsPROTEIN, RANDOM [id number] 19:27:00 Test Item Value Reference Range Comments PROTEIN, URINE (BEAKER) (test ygfs=6369) 7 mg/dL 0-14 CREATININE, RANDOM [id number] 19:25:00 Test Item Value Reference Range Comments CREATININE URINE (BEAKER) (test oeof=224) 150.3 mg/dL Reference Range: No [id number] 16:26:00 Test Item Value Reference Range Comments PREALBUMIN (BEAKER) (test vqtr=344) 5 mg/dL 14-45 Listed for OLT - Nutrition Surveillance ([facility] Hepatology Transplant Team)U/S, [id number] 14:56:00Reason for exam:->ascites - limit to 5L [...] Verified Date/Time: 05/05/2018 14:56:27 Reading Location: [address] Ultrasound Reading Room BASIC METABOLIC [id number] 09:36:00 Test Item Value Reference Range Comments SODIUM (BEAKER) (test 125 meq/L 136-145 kjzp=055) POTASSIUM (BEAKER) (test 4.2 meq/L 3.5-5.1 zymi=362) CHLORIDE (BEAKER) (test 95 meq/L 98-107 dglm=068) CO2 (BEAKER) (test 23 meq/L 22-29 ksyd=978) BLOOD UREA NITROGEN 29 mg/dL 7-21 (BEAKER) (test iiic=226) CREATININE (BEAKER) (test 2.01 mg/dL 0.57-1.25 klud=797) GLUCOSE RANDOM (BEAKER) 112 mg/dL 70-105 (test ogaz=153) CALCIUM (BEAKER) (test 9.2 mg/dL 8.4-10.2 ddsk=541) EGFR (BEAKER) (test 35 mL/min/1.73 sq m ESTIMATED GFR IS NOT ufhj=6463) ACCURATE CREATININE CLEARANCE IN PREDICTING GLOMERULAR FILTRATION RATE. ESTIMATED GFR IS NOT APPLICABLE FOR DIALYSIS PATIENTS. Specimen slightly ictericHEPATIC FUNCTION [id number] 09:36:00 Test Item Value Reference Range Comments TOTAL PROTEIN (BEAKER) (test pqds=591) 5.3 gm/dL 6.0-8.3 ALBUMIN (BEAKER) (test vssq=8178) 3.0 g/dL 3.5-5.0 BILIRUBIN TOTAL (BEAKER) (test isfx=175) 4.1 mg/dL 0.2-1.2 BILIRUBIN DIRECT (BEAKER) (test ukbj=949) 2.8 mg/dL 0.1-0.5 ALKALINE PHOSPHATASE (BEAKER) (test iwqg=581) 115 U/L 40-150 AST (SGOT) (BEAKER) (test jztv=831) 20 U/L 5-34 ALT (SGPT) (BEAKER) (test xhfu=269) 9 U/L 6-55 Specimen slightly ictericCBC W/PLT COUNT & AUTO [id number] 09:28 :00 Test Item Value Reference Range Comments WHITE BLOOD CELL COUNT (BEAKER) (test wbfy=783) 4.4 K/ L 3.5-10.5 RED BLOOD CELL COUNT (BEAKER) (test hter=845) 2.20 M/ L 4.63-6.08 HEMOGLOBIN (BEAKER) (test sdsk=288) 7.1 GM/DL 13.7-17.5 HEMATOCRIT (BEAKER) (test ngkf=902) 21.1 % 40.1-51.0 MEAN CORPUSCULAR VOLUME (BEAKER) (test jmmb=935) 95.9 fL 79.0-92.2 MEAN CORPUSCULAR HEMOGLOBIN (BEAKER) (test 32.3 pg 25.7-32.2 nspw=320) MEAN CORPUSCULAR HEMOGLOBIN CONC (BEAKER) (test 33.6 GM/DL 32.3-36.5 oehr=804) RED CELL DISTRIBUTION WIDTH (BEAKER) (test 16.7 % 11.6-14.4 qkor=004) PLATELET COUNT (BEAKER) (test ucuu=559) 60 K/CU MM 150-450 MEAN PLATELET VOLUME (BEAKER) (test gfxo=667) 9.7 fL 9.4-12.4 NUCLEATED RED BLOOD CELLS (BEAKER) (test 0 /100 WBC 0-0 zblt=693) NEUTROPHILS RELATIVE PERCENT (BEAKER) (test 71 % ecba=004) LYMPHOCYTES RELATIVE PERCENT (BEAKER) (test 9 % blss=704) MONOCYTES RELATIVE PERCENT (BEAKER) (test 16 % vdar=549) EOSINOPHILS RELATIVE PERCENT (BEAKER) (test 3 % ywbx=719) BASOPHILS RELATIVE PERCENT (BEAKER) (test 0 % oloz=613) NEUTROPHILS ABSOLUTE COUNT (BEAKER) (test 3.10 K/ L 1.78-5.38 ipje=138) LYMPHOCYTES ABSOLUTE COUNT (BEAKER) (test 0.39 K/ L 1.32-3.57 mgvs=252) MONOCYTES ABSOLUTE COUNT (BEAKER) (test qmnb=614) 0.69 K/ L 0.30-0.82 EOSINOPHILS ABSOLUTE COUNT (BEAKER) (test 0.12 K/ L 0.04-0.54 jbux=360) BASOPHILS ABSOLUTE COUNT (BEAKER) (test uwez=060) 0.01 K/ L 0.01-0.08 IMMATURE GRANULOCYTES-RELATIVE PERCENT (BEAKER) 1 % 0-1 (test pxvq=1365) PROTHROMBIN [id number] 09:07:00 Test Item Value Reference Range Comments PROTIME (BEAKER) (test yuuf=281) 21.6 seconds 11.7-14.7 INR (BEAKER) (test syrl=993) 1.9 <=5.9 RECOMMENDED COUMADIN/WARFARIN INR THERAPY RANGESSTANDARD DOSE: 2.0 - 3.0 Includes: PROPHYLAXIS forvenous thrombosis, systemic embolization; TREATMENT for venous thrombosis and/or pulmonary embolus.HIGH RISK: Target INR is 2.5-3.5 for patients with mechanical heart valves.[id number] 13:59:00 Test Item Value Reference Range Comments POC-CREATININE (BEAKER) 2.0 mg/dL 0.6-1.3 TESTED AT [address] (test osjx=1633) [facility] [address] POC-EGFR (BEAKER) (test 35 mL/min/1.73M2 fkdv=5315) PET/CT, LIMITED AREA [id number] 08:25:00PET/ CT ChestReason for Exam:-> Elongated nodular [...] thighsAdditional imaging: NoneSerum blood glucose: 119CPT Code: 67632 FINDINGS:Head and Neck: There is no trisha [...] Hung Verified Date/Time: 03/31/2018 08:25:09 POCT- GLUCOSE [id number] 14:54:00 Test Item Value Reference Range Comments POC-GLUCOSE METER (BEAKER) 119 mg/dL 70-110 TESTED AT [facility] [address] (test tpbd=3343) [facility] [address] COMPREHENSIVE METABOLIC [id number] 16:49:00 Test Item Value Reference Range Comments TOTAL PROTEIN (BEAKER) 6.2 gm/dL 6.0-8.3 (test zylc=936) ALBUMIN (BEAKER) (test 3.4 g/dL 3.5-5.0 gmph=5394) ALKALINE PHOSPHATASE 139 U/L 40-150 (BEAKER) (test ecoh=760) BILIRUBIN TOTAL (BEAKER) 4.0 mg/dL 0.2-1.2 (test rzvw=055) SODIUM (BEAKER) (test 129 meq/L 136-145 skhy=607) POTASSIUM (BEAKER) (test 4.3 meq/L 3.5-5.1 rvhh=680) CHLORIDE (BEAKER) (test 96 meq/L 98-107 mqab=760) CO2 (BEAKER) (test 22 meq/L 22-29 sgol=907) BLOOD UREA NITROGEN 28 mg/dL 7-21 (BEAKER) (test qclq=616) CREATININE (BEAKER) (test 1.51 mg/dL 0.57-1.25 gull=390) GLUCOSE RANDOM (BEAKER) 89 mg/dL 70-105 (test murw=279) CALCIUM (BEAKER) (test 9.5 mg/dL 8.4-10.2 sujq=506) AST (SGOT) (BEAKER) (test 26 U/L 5-34 rnnb=693) ALT (SGPT) (BEAKER) (test 11 U/L 6-55 bttl=308) EGFR (BEAKER) (test 49 mL/min/1.73 sq m ESTIMATED GFR IS NOT hfdb=6605) ACCURATE CREATININE CLEARANCE IN PREDICTING GLOMERULAR FILTRATION RATE. ESTIMATED GFR IS NOT APPLICABLE FOR DIALYSIS PATIENTS. Specimen slightly ictericBILIRUBIN, [id number] 16:49:00 Test Item Value Reference Range Comments BILIRUBIN DIRECT (BEAKER) (test qgkd=823) 2.8 mg/dL 0.1-0.5 PROTHROMBIN [id number] 16:36:00 Test Item Value Reference Range Comments PROTIME (BEAKER) (test vcni=067) 19.0 seconds 11.7-14.7 INR (BEAKER) (test tmhu=337) 1.6 <=5.9 RECOMMENDED COUMADIN/WARFARIN INR THERAPY RANGESSTANDARD DOSE: 2.0 - 3.0 Includes: PROPHYLAXIS forvenous thrombosis, systemic embolization; TREATMENT for venous thrombosis and/or pulmonary embolus.HIGH RISK: Target INR is 2.5-3.5 for patients with mechanical heart valves.CBC W/PLT COUNT & AUTO [id number] 16:27:00 Test Item Value Reference Range Comments WHITE BLOOD CELL COUNT (BEAKER) (test avfy=732) 6.0 K/ L 3.5-10.5 RED BLOOD CELL COUNT (BEAKER) (test grev=025) 2.74 M/ L 4.63-6.08 HEMOGLOBIN (BEAKER) (test argk=627) 9.3 GM/DL 13.7-17.5 HEMATOCRIT (BEAKER) (test jnus=643) 27.6 % 40.1-51.0 MEAN CORPUSCULAR VOLUME (BEAKER) (test cgat=727) 100.7 fL 79.0-92.2 MEAN CORPUSCULAR HEMOGLOBIN (BEAKER) (test 33.9 pg 25.7-32.2 ejge=824) MEAN CORPUSCULAR HEMOGLOBIN CONC (BEAKER) (test 33.7 GM/DL 32.3-36.5 vnad=157) RED CELL DISTRIBUTION WIDTH (BEAKER) (test 14.9 % 11.6-14.4 ocep=475) PLATELET COUNT (BEAKER) (test hamd=438) 96 K/CU MM 150-450 MEAN PLATELET VOLUME (BEAKER) (test vnrt=257) 9.4 fL 9.4-12.4 NUCLEATED RED BLOOD CELLS (BEAKER) (test 0 /100 WBC 0-0 ioeg=956) NEUTROPHILS RELATIVE PERCENT (BEAKER) (test 64 % bwdw=158) LYMPHOCYTES RELATIVE PERCENT (BEAKER) (test 11 % bgrl=126) MONOCYTES RELATIVE PERCENT (BEAKER) (test 16 % jmtk=591) EOSINOPHILS RELATIVE PERCENT (BEAKER) (test 7 % faig=866) BASOPHILS RELATIVE PERCENT (BEAKER) (test 1 % yadg=435) NEUTROPHILS ABSOLUTE COUNT (BEAKER) (test 3.83 K/ L 1.78-5.38 itpg=074) LYMPHOCYTES ABSOLUTE COUNT (BEAKER) (test 0.66 K/ L 1.32-3.57 wuzi=790) MONOCYTES ABSOLUTE COUNT (BEAKER) (test ozzo=933) 0.95 K/ L 0.30-0.82 EOSINOPHILS ABSOLUTE COUNT (BEAKER) (test 0.41 K/ L 0.04-0.54 ueiu=493) BASOPHILS ABSOLUTE COUNT (BEAKER) (test hfmw=132) 0.03 K/ L 0.01-0.08 IMMATURE GRANULOCYTES-RELATIVE PERCENT (BEAKER) 2 % 0-1 (test zjyn=9390) BASIC METABOLIC [id number] 08:26:00 Test Item Value Reference Range Comments SODIUM (BEAKER) (test 127 meq/L 136-145 sbpl=040) POTASSIUM (BEAKER) (test 4.3 meq/L 3.5-5.1 aeek=220) CHLORIDE (BEAKER) (test 96 meq/L 98-107 spjl=766) CO2 (BEAKER) (test 23 meq/L 22-29 ixvu=206) BLOOD UREA NITROGEN 25 mg/dL 7-21 (BEAKER) (test gtbe=437) CREATININE (BEAKER) (test 1.46 mg/dL 0.57-1.25 jkct=993) GLUCOSE RANDOM (BEAKER) 130 mg/dL 70-105 (test yckd=109) CALCIUM (BEAKER) (test 9.1 mg/dL 8.4-10.2 mgdv=253) EGFR (BEAKER) (test 51 mL/min/1.73 sq m ESTIMATED GFR IS NOT ozcu=2959) ACCURATE CREATININE CLEARANCE IN PREDICTING GLOMERULAR FILTRATION RATE. ESTIMATED GFR IS NOT APPLICABLE FOR DIALYSIS PATIENTS. Specimen slightly ictericCBC (HEMOGRAM ONLY)2018-02-23 08:06:00 Test Item Value Reference Range Comments WHITE BLOOD CELL COUNT (BEAKER) (test ourc=037) 5.4 K/ L 3.5-10.5 RED BLOOD CELL COUNT (BEAKER) (test vqtx=924) 2.64 M/ L 4.63-6.08 HEMOGLOBIN (BEAKER) (test xftt=870) 8.8 GM/DL 13.7-17.5 HEMATOCRIT (BEAKER) (test quhy=570) 26.2 % 40.1-51.0 MEAN CORPUSCULAR VOLUME (BEAKER) (test nfbp=255) 99.2 fL 79.0-92.2 MEAN CORPUSCULAR HEMOGLOBIN (BEAKER) (test 33.3 pg 25.7-32.2 oxei=172) MEAN CORPUSCULAR HEMOGLOBIN CONC (BEAKER) (test 33.6 GM/DL 32.3-36.5 jnzg=179) RED CELL DISTRIBUTION WIDTH (BEAKER) (test 16.2 % 11.6-14.4 ivxn=267) PLATELET COUNT (BEAKER) (test wfol=212) 100 K/CU MM 150-450 MEAN PLATELET VOLUME (BEAKER) (test oegy=702) 8.7 fL 9.4-12.4 NUCLEATED RED BLOOD CELLS (BEAKER) (test 0 /100 WBC 0-0 kuwp=190) COMPREHENSIVE METABOLIC [id number] 15:06:00 Test Item Value Reference Range Comments TOTAL PROTEIN (BEAKER) 6.5 gm/dL 6.0-8.3 (test kbcu=018) ALBUMIN (BEAKER) (test 3.7 g/dL 3.5-5.0 xkuh=9824) ALKALINE PHOSPHATASE 135 U/L 40-150 (BEAKER) (test xjlt=741) BILIRUBIN TOTAL (BEAKER) 4.5 mg/dL 0.2-1.2 (test mcal=754) SODIUM (BEAKER) (test 131 meq/L 136-145 tfrk=454) POTASSIUM (BEAKER) (test 5.8 meq/L 3.5-5.1 ljaz=729) CHLORIDE (BEAKER) (test 103 meq/L 98-107 mstp=074) CO2 (BEAKER) (test 24 meq/L 22-29 hjcm=499) BLOOD UREA NITROGEN 27 mg/dL 7-21 (BEAKER) (test vblu=701) CREATININE (BEAKER) (test 1.17 mg/dL 0.57-1.25 ddki=611) GLUCOSE RANDOM (BEAKER) 111 mg/dL 70-105 (test ptuo=658) CALCIUM (BEAKER) (test 11.0 mg/dL 8.4-10.2 wwwb=392) AST (SGOT) (BEAKER) (test 28 U/L 5-34 maom=673) ALT (SGPT) (BEAKER) (test 19 U/L 6-55 rkfu=197) EGFR (BEAKER) (test 65 mL/min/1.73 sq m ESTIMATED GFR IS NOT brpg=7856) ACCURATE CREATININE CLEARANCE IN PREDICTING GLOMERULAR FILTRATION RATE. ESTIMATED GFR IS NOT APPLICABLE FOR DIALYSIS PATIENTS. Specimen slightly ictericBILIRUBIN, [id number] 15:06:00 Test Item Value Reference Range Comments BILIRUBIN DIRECT (BEAKER) (test vijt=126) 3.0 mg/dL 0.1-0.5 PROTHROMBIN [id number] 14:42:00 Test Item Value Reference Range Comments PROTIME (BEAKER) (test dtzm=813) 19.1 seconds 11.7-14.7 INR (BEAKER) (test dbnz=902) 1.6 <=5.9 RECOMMENDED COUMADIN/WARFARIN INR THERAPY RANGESSTANDARD DOSE: 2.0 - 3.0 Includes: PROPHYLAXIS forvenous thrombosis, systemic embolization; TREATMENT for venous thrombosis and/or pulmonary embolus.HIGH RISK: Target INR is 2.5-3.5 for patients with mechanical heart valves.CBC W/PLT COUNT & AUTO [id number] 14:36:00 Test Item Value Reference Range Comments WHITE BLOOD CELL COUNT (BEAKER) (test xocr=382) 5.5 K/ L 3.5-10.5 RED BLOOD CELL COUNT (BEAKER) (test ggxp=915) 2.84 M/ L 4.63-6.08 HEMOGLOBIN (BEAKER) (test fmst=090) 9.5 GM/DL 13.7-17.5 HEMATOCRIT (BEAKER) (test tfuv=005) 28.8 % 40.1-51.0 MEAN CORPUSCULAR VOLUME (BEAKER) (test qwmg=286) 101.4 fL 79.0-92.2 MEAN CORPUSCULAR HEMOGLOBIN (BEAKER) (test 33.5 pg 25.7-32.2 xmed=009) MEAN CORPUSCULAR HEMOGLOBIN CONC (BEAKER) (test 33.0 GM/DL 32.3-36.5 vezo=280) RED CELL DISTRIBUTION WIDTH (BEAKER) (test 19.4 % 11.6-14.4 sviy=623) PLATELET COUNT (BEAKER) (test brcm=386) 65 K/CU MM 150-450 MEAN PLATELET VOLUME (BEAKER) (test sufq=150) 8.8 fL 9.4-12.4 NUCLEATED RED BLOOD CELLS (BEAKER) (test 0 /100 WBC 0-0 ivqx=146) NEUTROPHILS RELATIVE PERCENT (BEAKER) (test 66 % mqvk=388) LYMPHOCYTES RELATIVE PERCENT (BEAKER) (test 14 % ysjl=365) MONOCYTES RELATIVE PERCENT (BEAKER) (test 15 % qkrj=078) EOSINOPHILS RELATIVE PERCENT (BEAKER) (test 4 % friy=713) BASOPHILS RELATIVE PERCENT (BEAKER) (test 0 % ydaz=222) NEUTROPHILS ABSOLUTE COUNT (BEAKER) (test 3.58 K/ L 1.78-5.38 geit=600) LYMPHOCYTES ABSOLUTE COUNT (BEAKER) (test 0.78 K/ L 1.32-3.57 fgey=871) MONOCYTES ABSOLUTE COUNT (BEAKER) (test jldo=516) 0.79 K/ L 0.30-0.82 EOSINOPHILS ABSOLUTE COUNT (BEAKER) (test 0.23 K/ L 0.04-0.54 tkur=764) BASOPHILS ABSOLUTE COUNT (BEAKER) (test ibog=325) 0.02 K/ L 0.01-0.08 IMMATURE GRANULOCYTES-RELATIVE PERCENT (BEAKER) 1 % 0-1 (test eowq=9183) RAD, KNEE, COMPLETE (4 VIEWS), [id number] 11:15:00Reason for exam:->FALL , PAINFINAL REPORT Bilateral [...] MDReport Verified Date/Time: 01/06/2018 11:15:08 Reading Location: [facility] Radiology Reading Room RAD, KNEE, COMPLETE (4 VIEWS), [id number] 11:15:00Reason for exam:->FALL, PAINFINAL REPORT Bilateral knee [...] MDReport Verified Date/Time: 01/06/2018 11:15:08 Reading Location: [facility] Radiology Reading Room CBC W/PLT COUNT & AUTO [id number] 10: 58:00 Test Item Value Reference Range Comments WHITE BLOOD CELL COUNT (BEAKER) (test dvgu=927) 2.9 K/ L 3.5-10.5 RED BLOOD CELL COUNT (BEAKER) (test lndg=782) 2.27 M/ L 4.63-6.08 HEMOGLOBIN (BEAKER) (test ylcz=579) 7.1 GM/DL 13.7-17.5 HEMATOCRIT (BEAKER) (test rlpj=404) 21.0 % 40.1-51.0 MEAN CORPUSCULAR VOLUME (BEAKER) (test onxn=891) 92.5 fL 79.0-92.2 MEAN CORPUSCULAR HEMOGLOBIN (BEAKER) (test 31.3 pg 25.7-32.2 envg=923) MEAN CORPUSCULAR HEMOGLOBIN CONC (BEAKER) (test 33.8 GM/DL 32.3-36.5 tkkk=414) RED CELL DISTRIBUTION WIDTH (BEAKER) (test 17.2 % 11.6-14.4 zzno=961) PLATELET COUNT (BEAKER) (test pjfu=086) 42 K/CU MM 150-450 MEAN PLATELET VOLUME (BEAKER) (test vuwj=041) 10.1 fL 9.4-12.4 NUCLEATED RED BLOOD CELLS (BEAKER) (test 0 /100 WBC 0-0 ujrx=933) NEUTROPHILS RELATIVE PERCENT (BEAKER) (test 77 % ahbq=081) LYMPHOCYTES RELATIVE PERCENT (BEAKER) (test 12 % ujne=658) MONOCYTES RELATIVE PERCENT (BEAKER) (test 10 % ijup=641) EOSINOPHILS RELATIVE PERCENT (BEAKER) (test 1 % klyu=077) BASOPHILS RELATIVE PERCENT (BEAKER) (test 0 % vdku=284) NEUTROPHILS ABSOLUTE COUNT (BEAKER) (test 2.21 K/ L 1.78-5.38 qwqk=474) LYMPHOCYTES ABSOLUTE COUNT (BEAKER) (test 0.33 K/ L 1.32-3.57 curr=490) MONOCYTES ABSOLUTE COUNT (BEAKER) (test yamc=365) 0.30 K/ L 0.30-0.82 EOSINOPHILS ABSOLUTE COUNT (BEAKER) (test 0.03 K/ L 0.04-0.54 pryl=385) BASOPHILS ABSOLUTE COUNT (BEAKER) (test ohpi=238) 0.00 K/ L 0.01-0.08 IMMATURE GRANULOCYTES-RELATIVE PERCENT (BEAKER) 0 % 0-1 (test fuvs=6283) [id number] 06:06:00 Test Item Value Reference Range Comments PHOSPHORUS (BEAKER) (test dabh=641) 3.6 mg/dL 2.3-4.7 [id number] 06:06:00 Test Item Value Reference Range Comments MAGNESIUM (BEAKER) (test jzfi=835) 2.0 mg/dL 1.6-2.6 BASIC METABOLIC [id number] 06:06:00 Test Item Value Reference Range Comments SODIUM (BEAKER) (test 130 meq/L 136-145 rbtu=280) POTASSIUM (BEAKER) (test 4.4 meq/L 3.5-5.1 nhhv=832) CHLORIDE (BEAKER) (test 100 meq/L 98-107 ywqj=893) CO2 (BEAKER) (test 23 meq/L 22-29 nnit=134) BLOOD UREA NITROGEN 21 mg/dL 7-21 (BEAKER) (test bvox=619) CREATININE (BEAKER) (test 1.11 mg/dL 0.57-1.25 eewc=727) GLUCOSE RANDOM (BEAKER) 120 mg/dL 70-105 (test dgql=392) CALCIUM (BEAKER) (test 9.4 mg/dL 8.4-10.2 rklw=682) EGFR (BEAKER) (test 70 mL/min/1.73 sq m ESTIMATED GFR IS NOT yqgq=2337) ACCURATE CREATININE CLEARANCE IN PREDICTING GLOMERULAR FILTRATION RATE. ESTIMATED GFR IS NOT APPLICABLE FOR DIALYSIS PATIENTS. Specimen slightly ictericPROTHROMBIN [id number] 06:02:00 Test Item Value Reference Range Comments PROTIME (BEAKER) (test geic=778) 22.9 seconds 11.7-14.7 INR (BEAKER) (test kmxp=748) 2.0 <=5.9 RECOMMENDED COUMADIN/WARFARIN INR THERAPY RANGESSTANDARD DOSE: 2.0 - 3.0 Includes: PROPHYLAXIS forvenous thrombosis, systemic embolization; TREATMENT for venous thrombosis and/or pulmonary embolus.HIGH RISK: Target INR is 2.5-3.5 for patients with mechanical heart valves.CALCIUM, [id number] 06:01:00 Test Item Value Reference Range Comments CALCIUM IONIZED (BEAKER) (test yjws=226) 1.11 mmol/L 1.12-1.27 PH, BLOOD (BEAKER) (test psxm=6017) 7.53 CORTISOL,60 [id number] 23:20:00 Test Item Value Reference Range Comments CORTISOL BASELINE NETWORKED (BEAKER) (test 4.8 mcg/dL toyf=6854) CORTISOL 30 MINUTE NETWORKED (BEAKER) (test 9.2 mcg/dL whuj=0386) CORTISOL, 60 MINUTE (BEAKER) (test coes=6739) 12.6 ug/dL ACTH STIMULATION TEST INTERPRETATION GUIDELINES(Synonyms: [...] study by Mindy et al (NEVAEH 2000,283( 8):2807-45), the ACTH Stimulation Test provides important prognostic [...] serum cortisollevel 60 minutes after cosyntropin administration.CORTISOL,30 [id number] 22:35:00 Test Item Value Reference Range Comments CORTISOL BASELINE NETWORKED (BEAKER) (test 4.8 mcg/dL xtnv=0380) CORTISOL, 30 MINUTE (BEAKER) (test wqto=2584) 9.2 ug/dL ACTH STIMULATION TEST INTERPRETATION GUIDELINES(Synonyms: [...] Draw serum cortisollevel 60 minutes after cosyntropin administration.CORTISOL,[id number] 22:35:00 Test Item Value Reference Range Comments CORTISOL, BASELINE (TUNG) (test sfao=8989) 4.8 ug/dL ACTH STIMULATION TEST INTERPRETATION GUIDELINES(Synonyms: [...] serum cortisollevel 60 minutes after cosyntropin administration.U/S, [id number] 17:54:00Reason for exam:->therapeuticFINAL REPORT History: Ascites. PROCEDURE: Following informed written consent,the patient's right lower quadrant was prepped and draped in the usual sterile manner. 2% lidocaine was given locally for anesthesia. No conscious sedation was administered. Using ultrasound guidance, a 5 [place] one-step catheter was advanced percutaneously into the [...] Date/Time: 01/05/2018 17: 54:16 Reading Location: [address] Ultrasound Reading Room [id number] 11:19:00 Test Item Value Reference Range Comments CORTISOL, TOTAL (BEAKER) (test bjrh=6077) 2.7 ug/dL 3.7-19.4 [id number] 10:21:00 Test Item Value Reference Range Comments PHOSPHORUS (BEAKER) (test keev=213) 2.8 mg/dL 2.3-4.7 [id number] 10:21:00 Test Item Value Reference Range Comments MAGNESIUM (BEAKER) (test pqnu=144) 1.9 mg/dL 1.6-2.6 BASIC METABOLIC [id number] 10:21:00 Test Item Value Reference Range Comments SODIUM (BEAKER) (test 127 meq/L 136-145 apuf=333) POTASSIUM (BEAKER) (test 5.0 meq/L 3.5-5.1 mhoc=569) CHLORIDE (BEAKER) (test 100 meq/L 98-107 xacz=061) CO2 (BEAKER) (test 22 meq/L 22-29 afup=289) BLOOD UREA NITROGEN 25 mg/dL 7-21 (BEAKER) (test grxw=867) CREATININE (BEAKER) (test 1.17 mg/dL 0.57-1.25 rotm=720) GLUCOSE RANDOM (BEAKER) 84 mg/dL 70-105 (test bztf=335) CALCIUM (BEAKER) (test 8.7 mg/dL 8.4-10.2 vtul=736) EGFR (BEAKER) (test 65 mL/min/1.73 sq m ESTIMATED GFR IS NOT fdmm=3334) ACCURATE CREATININE CLEARANCE IN PREDICTING GLOMERULAR FILTRATION RATE. ESTIMATED GFR IS NOT APPLICABLE FOR DIALYSIS PATIENTS. Specimen slightly ictericCBC W/PLT COUNT & AUTO [id number] 08:42 :00 Test Item Value Reference Range Comments WHITE BLOOD CELL COUNT (BEAKER) (test snoh=855) 2.7 K/ L 3.5-10.5 RED BLOOD CELL COUNT (BEAKER) (test ucws=330) 2.33 M/ L 4.63-6.08 HEMOGLOBIN (BEAKER) (test myfk=602) 7.3 GM/DL 13.7-17.5 HEMATOCRIT (BEAKER) (test toro=259) 22.0 % 40.1-51.0 MEAN CORPUSCULAR VOLUME (BEAKER) (test jlid=388) 94.4 fL 79.0-92.2 MEAN CORPUSCULAR HEMOGLOBIN (BEAKER) (test 31.3 pg 25.7-32.2 xafu=752) MEAN CORPUSCULAR HEMOGLOBIN CONC (BEAKER) (test 33.2 GM/DL 32.3-36.5 euzd=870) RED CELL DISTRIBUTION WIDTH (BEAKER) (test 17.2 % 11.6-14.4 bgzc=512) PLATELET COUNT (BEAKER) (test fgov=013) 45 K/CU MM 150-450 MEAN PLATELET VOLUME (BEAKER) (test voed=215) 9.3 fL 9.4-12.4 NUCLEATED RED BLOOD CELLS (BEAKER) (test 0 /100 WBC 0-0 pkpg=689) NEUTROPHILS RELATIVE PERCENT (BEAKER) (test 60 % amds=877) LYMPHOCYTES RELATIVE PERCENT (BEAKER) (test 17 % qlrm=671) MONOCYTES RELATIVE PERCENT (BEAKER) (test 16 % ellt=511) EOSINOPHILS RELATIVE PERCENT (BEAKER) (test 6 % nnyv=277) BASOPHILS RELATIVE PERCENT (BEAKER) (test 0 % htia=544) NEUTROPHILS ABSOLUTE COUNT (BEAKER) (test 1.63 K/ L 1.78-5.38 ywfv=620) LYMPHOCYTES ABSOLUTE COUNT (BEAKER) (test 0.45 K/ L 1.32-3.57 cgnb=953) MONOCYTES ABSOLUTE COUNT (BEAKER) (test aims=022) 0.44 K/ L 0.30-0.82 EOSINOPHILS ABSOLUTE COUNT (BEAKER) (test 0.16 K/ L 0.04-0.54 jekk=327) BASOPHILS ABSOLUTE COUNT (BEAKER) (test mjvp=369) 0.01 K/ L 0.01-0.08 IMMATURE GRANULOCYTES-RELATIVE PERCENT (BEAKER) 1 % 0-1 (test xkmb=5144) (MANUAL DIFFERENTIAL)2018-01-05 08:42:00 Test Item Value Reference Range Comments TOTAL COUNTED (BEAKER) (test kzzc=5050) WBC MORPHOLOGY (BEAKER) (test ckxs=463) Normal PLT MORPHOLOGY (BEAKER) (test casm=803) Normal ANISOCYTOSIS (BEAKER) (test lbtz=630) 1+ few CALCIUM, [id number] 08:10:00 Test Item Value Reference Range Comments CALCIUM IONIZED (BEAKER) (test xdvm=296) 1.08 mmol/L 1.12-1.27 PH, BLOOD (BEAKER) (test oxdz=7370) 7.44 PROTHROMBIN [id number] 07:12:00 Test Item Value Reference Range Comments PROTIME (BEAKER) (test ppjk=485) 22.4 seconds 11.7-14.7 INR (BEAKER) (test rccc=853) 2.0 <=5.9 RECOMMENDED COUMADIN/WARFARIN INR THERAPY RANGESSTANDARD DOSE: 2.0 - 3.0 Includes: PROPHYLAXIS forvenous thrombosis, systemic embolization; TREATMENT for venous thrombosis and/or pulmonary embolus.HIGH RISK: Target INR is 2.5-3.5 for patients with mechanical heart valves.[id number] 17:54:00 Test Item Value Reference Range Comments SODIUM (BEAKER) (test crnj=799) 129 meq/L 136-145 POTASSIUM (BEAKER) (test sfsy=000) 5.5 meq/L 3.5-5.1 CHLORIDE (BEAKER) (test hwfy=412) 101 meq/L 98-107 CO2 (BEAKER) (test hkhw=906) 26 meq/L 22-29 Call [id number] with resultsCBC (HEMOGRAM ONLY)2018-01-04 07:16:00 Test Item Value Reference Range Comments WHITE BLOOD CELL COUNT (BEAKER) (test lhde=357) 2.9 K/ L 3.5-10.5 RED BLOOD CELL COUNT (BEAKER) (test wdfw=411) 2.25 M/ L 4.63-6.08 HEMOGLOBIN (BEAKER) (test rosh=900) 7.3 GM/DL 13.7-17.5 HEMATOCRIT (BEAKER) (test xlmx=917) 21.3 % 40.1-51.0 MEAN CORPUSCULAR VOLUME (BEAKER) (test cugb=715) 94.7 fL 79.0-92.2 MEAN CORPUSCULAR HEMOGLOBIN (BEAKER) (test 32.4 pg 25.7-32.2 ubbs=588) MEAN CORPUSCULAR HEMOGLOBIN CONC (BEAKER) (test 34.3 GM/DL 32.3-36.5 juzi=013) RED CELL DISTRIBUTION WIDTH (BEAKER) (test 17.6 % 11.6-14.4 lpia=735) PLATELET COUNT (BEAKER) (test wofb=067) 59 K/CU MM 150-450 MEAN PLATELET VOLUME (BEAKER) (test xmxe=844) 11.3 fL 9.4-12.4 NUCLEATED RED BLOOD CELLS (BEAKER) (test 0 /100 WBC 0-0 rljj=485) COMPREHENSIVE METABOLIC [id number] 06:49:00 Test Item Value Reference Range Comments TOTAL PROTEIN (BEAKER) 5.3 gm/dL 6.0-8.3 Specimen slightly (test wffd=966) hemolyzed ALBUMIN (BEAKER) (test 3.3 g/dL 3.5-5.0 Specimen slightly tqki=5068) hemolyzed ALKALINE PHOSPHATASE 81 U/L 40-150 (BEAKER) (test epqz=483) BILIRUBIN TOTAL (BEAKER) 2.4 mg/dL 0.2-1.2 Specimen slightly (test lauc=612) hemolyzed SODIUM (BEAKER) (test 127 meq/L 136-145 qgzb=693) POTASSIUM (BEAKER) (test 5.7 meq/L 3.5-5.1 Specimen slightly lien=331) hemolyzed CHLORIDE (BEAKER) (test 100 meq/L 98-107 xuxd=382) CO2 (BEAKER) (test 20 meq/L 22-29 wvtp=568) BLOOD UREA NITROGEN 22 mg/dL 7-21 (BEAKER) (test twsj=928) CREATININE (BEAKER) (test 1.14 mg/dL 0.57-1.25 Specimen slightly myox=066) hemolyzed GLUCOSE RANDOM (BEAKER) 96 mg/dL 70-105 (test syuf=256) CALCIUM (BEAKER) (test 8.9 mg/dL 8.4-10.2 dhtg=463) AST (SGOT) (BEAKER) (test 30 U/L 5-34 Specimen slightly mvag=916) hemolyzed ALT (SGPT) (BEAKER) (test 8 U/L 6-55 Specimen slightly ealu=589) hemolyzed EGFR (BEAKER) (test 67 mL/min/1.73 sq m ESTIMATED GFR IS NOT klaj=0375) ACCURATE CREATININE CLEARANCE IN PREDICTING GLOMERULAR FILTRATION RATE. ESTIMATED GFR IS NOT APPLICABLE FOR DIALYSIS PATIENTS. Specimen slightly ictericPROTHROMBIN [id number] 06:15:00 Test Item Value Reference Range Comments PROTIME (BEAKER) (test gqtn=104) 22.7 seconds 11.7-14.7 INR (BEAKER) (test qbwn=731) 2.0 <=5.9 RECOMMENDED COUMADIN/WARFARIN INR THERAPY RANGESSTANDARD DOSE: 2.0 - 3.0 Includes: PROPHYLAXIS forvenous thrombosis, systemic embolization; TREATMENT for venous thrombosis and/or pulmonary embolus.HIGH RISK: Target INR is 2.5-3.5 for patients with mechanical heart valves.VITAMIN B12 AND [id number] 16:39 :00 Test Item Value Reference Range Comments VITAMIN B12 (BEAKER) (test gqcg=109) 829 pg/mL 213-816 FOLATE (BEAKER) (test dkvb=004) 18.9 ng/mL >=7.0 CALCIUM, [id number] 07:14:00 Test Item Value Reference Range Comments CALCIUM IONIZED (BEAKER) (test veuc=805) 1.08 mmol/L 1.12-1.27 PH, BLOOD (BEAKER) (test fcue=8083) 7.41 COMPREHENSIVE METABOLIC [id number] 07:00:00 Test Item Value Reference Range Comments TOTAL PROTEIN (BEAKER) 5.0 gm/dL 6.0-8.3 (test yhpf=293) ALBUMIN (BEAKER) (test 3.1 g/dL 3.5-5.0 rpbh=1875) ALKALINE PHOSPHATASE 65 U/L 40-150 (BEAKER) (test cduo=291) BILIRUBIN TOTAL (BEAKER) 2.5 mg/dL 0.2-1.2 (test lxbm=853) SODIUM (BEAKER) (test 127 meq/L 136-145 boeb=697) POTASSIUM (BEAKER) (test 4.7 meq/L 3.5-5.1 zhnz=562) CHLORIDE (BEAKER) (test 99 meq/L 98-107 nylv=717) CO2 (BEAKER) (test 23 meq/L 22-29 qplx=583) BLOOD UREA NITROGEN 21 mg/dL 7-21 (BEAKER) (test mvev=767) CREATININE (BEAKER) (test 1.13 mg/dL 0.57-1.25 thnf=260) GLUCOSE RANDOM (BEAKER) 92 mg/dL 70-105 (test rlba=928) CALCIUM (BEAKER) (test 8.9 mg/dL 8.4-10.2 niip=769) AST (SGOT) (BEAKER) (test 18 U/L 5-34 fksw=910) ALT (SGPT) (BEAKER) (test 8 U/L 6-55 vkmc=045) EGFR (BEAKER) (test 68 mL/min/1.73 sq m ESTIMATED GFR IS NOT btbb=7683) ACCURATE CREATININE CLEARANCE IN PREDICTING GLOMERULAR FILTRATION RATE. ESTIMATED GFR IS NOT APPLICABLE FOR DIALYSIS PATIENTS. [id number] 06:37:00 Test Item Value Reference Range Comments PHOSPHORUS (BEAKER) (test ilnw=003) 3.2 mg/dL 2.3-4.7 [id number] 06:37:00 Test Item Value Reference Range Comments MAGNESIUM (BEAKER) (test eiqd=918) 1.9 mg/dL 1.6-2.6 CBC (HEMOGRAM ONLY)2018-01-03 06:25:00 Test Item Value Reference Range Comments WHITE BLOOD CELL COUNT (BEAKER) (test lnkw=771) 3.1 K/ L 3.5-10.5 RED BLOOD CELL COUNT (BEAKER) (test gvvr=660) 2.31 M/ L 4.63-6.08 HEMOGLOBIN (BEAKER) (test knwe=410) 7.4 GM/DL 13.7-17.5 HEMATOCRIT (BEAKER) (test hrdf=137) 21.6 % 40.1-51.0 MEAN CORPUSCULAR VOLUME (BEAKER) (test sjkn=316) 93.5 fL 79.0-92.2 MEAN CORPUSCULAR HEMOGLOBIN (BEAKER) (test 32.0 pg 25.7-32.2 jbli=786) MEAN CORPUSCULAR HEMOGLOBIN CONC (BEAKER) (test 34.3 GM/DL 32.3-36.5 myrw=514) RED CELL DISTRIBUTION WIDTH (BEAKER) (test 17.4 % 11.6-14.4 qmfy=230) PLATELET COUNT (BEAKER) (test pkol=238) 50 K/CU MM 150-450 MEAN PLATELET VOLUME (BEAKER) (test ugdv=926) 10.5 fL 9.4-12.4 NUCLEATED RED BLOOD CELLS (BEAKER) (test 0 /100 WBC 0-0 zprm=560) PROTHROMBIN [id number] 06:09:00 Test Item Value Reference Range Comments PROTIME (BEAKER) (test vnbd=872) 22.2 seconds 11.7-14.7 INR (BEAKER) (test wegd=322) 2.0 <=5.9 RECOMMENDED COUMADIN/WARFARIN INR THERAPY RANGESSTANDARD DOSE: 2.0 - 3.0 Includes: PROPHYLAXIS forvenous thrombosis, systemic embolization; TREATMENT for venous thrombosis and/or pulmonary embolus.HIGH RISK: Target INR is 2.5-3.5 for patients with mechanical heart valves.[id number] 07:54:00 Test Item Value Reference Range Comments PHOSPHORUS (BEAKER) (test orpa=035) 3.2 mg/dL 2.3-4.7 [id number] 07:54:00 Test Item Value Reference Range Comments MAGNESIUM (BEAKER) (test dfcj=965) 1.4 mg/dL 1.6-2.6 COMPREHENSIVE METABOLIC [id number] 07:54:00 Test Item Value Reference Range Comments TOTAL PROTEIN (BEAKER) 5.3 gm/dL 6.0-8.3 (test kogm=998) ALBUMIN (BEAKER) (test 3.4 g/dL 3.5-5.0 inrx=9423) ALKALINE PHOSPHATASE 55 U/L 40-150 (BEAKER) (test qxbx=095) BILIRUBIN TOTAL (BEAKER) 3.9 mg/dL 0.2-1.2 (test txwx=926) SODIUM (BEAKER) (test 131 meq/L 136-145 wtkl=940) POTASSIUM (BEAKER) (test 4.3 meq/L 3.5-5.1 meyv=138) CHLORIDE (BEAKER) (test 101 meq/L 98-107 mtfh=146) CO2 (BEAKER) (test 23 meq/L 22-29 gjxa=131) BLOOD UREA NITROGEN 19 mg/dL 7-21 (BEAKER) (test ceqs=473) CREATININE (BEAKER) (test 0.97 mg/dL 0.57-1.25 stpt=935) GLUCOSE RANDOM (BEAKER) 80 mg/dL 70-105 (test gmgh=165) CALCIUM (BEAKER) (test 9.4 mg/dL 8.4-10.2 jcdf=299) AST (SGOT) (BEAKER) (test 17 U/L 5-34 xgue=340) ALT (SGPT) (BEAKER) (test 8 U/L 6-55 tffo=474) EGFR (BEAKER) (test 81 mL/min/1.73 sq m ESTIMATED GFR IS NOT pyef=7514) ACCURATE CREATININE CLEARANCE IN PREDICTING GLOMERULAR FILTRATION RATE. ESTIMATED GFR IS NOT APPLICABLE FOR DIALYSIS PATIENTS. Specimen slightly ictericCBC W/PLT COUNT & AUTO [id number] 07:14 :00 Test Item Value Reference Range Comments WHITE BLOOD CELL COUNT (BEAKER) (test dnqj=338) 2.9 K/ L 3.5-10.5 RED BLOOD CELL COUNT (BEAKER) (test ipgr=428) 2.55 M/ L 4.63-6.08 HEMOGLOBIN (BEAKER) (test xcoh=973) 8.1 GM/DL 13.7-17.5 HEMATOCRIT (BEAKER) (test lgys=703) 23.7 % 40.1-51.0 MEAN CORPUSCULAR VOLUME (BEAKER) (test lakg=006) 92.9 fL 79.0-92.2 MEAN CORPUSCULAR HEMOGLOBIN (BEAKER) (test 31.8 pg 25.7-32.2 kayp=117) MEAN CORPUSCULAR HEMOGLOBIN CONC (BEAKER) (test 34.2 GM/DL 32.3-36.5 kqxj=202) RED CELL DISTRIBUTION WIDTH (BEAKER) (test 17.5 % 11.6-14.4 trdf=422) PLATELET COUNT (BEAKER) (test txlb=507) 50 K/CU MM 150-450 MEAN PLATELET VOLUME (BEAKER) (test xbou=276) 9.5 fL 9.4-12.4 NUCLEATED RED BLOOD CELLS (BEAKER) (test 0 /100 WBC 0-0 xuzd=641) NEUTROPHILS RELATIVE PERCENT (BEAKER) (test 57 % fdmc=577) LYMPHOCYTES RELATIVE PERCENT (BEAKER) (test 17 % sjhw=858) MONOCYTES RELATIVE PERCENT (BEAKER) (test 18 % pkgz=755) EOSINOPHILS RELATIVE PERCENT (BEAKER) (test 7 % widq=006) BASOPHILS RELATIVE PERCENT (BEAKER) (test 0 % cdra=105) NEUTROPHILS ABSOLUTE COUNT (BEAKER) (test 1.65 K/ L 1.78-5.38 engk=904) LYMPHOCYTES ABSOLUTE COUNT (BEAKER) (test 0.49 K/ L 1.32-3.57 rzpx=693) MONOCYTES ABSOLUTE COUNT (BEAKER) (test vrkx=798) 0.51 K/ L 0.30-0.82 EOSINOPHILS ABSOLUTE COUNT (BEAKER) (test 0.20 K/ L 0.04-0.54 awry=459) BASOPHILS ABSOLUTE COUNT (BEAKER) (test zldk=207) 0.01 K/ L 0.01-0.08 IMMATURE GRANULOCYTES-RELATIVE PERCENT (BEAKER) 1 % 0-1 (test xfyj=8984) (MANUAL DIFFERENTIAL)2018-01-02 07:14:00 Test Item Value Reference Range Comments TOTAL COUNTED (BEAKER) (test svmi=6502) CALCIUM, [id number] 07:04:00 Test Item Value Reference Range Comments CALCIUM IONIZED (BEAKER) (test xpef=008) 1.07 mmol/L 1.12-1.27 PH, BLOOD (BEAKER) (test ntfq=2504) 7.49 PROTHROMBIN [id number] 06:42:00 Test Item Value Reference Range Comments PROTIME (BEAKER) (test bvst=810) 24.6 seconds 11.7-14.7 INR (BEAKER) (test upcm=625) 2.2 <=5.9 RECOMMENDED COUMADIN/WARFARIN INR THERAPY RANGESSTANDARD DOSE: 2.0 - 3.0 Includes: PROPHYLAXIS forvenous thrombosis, systemic embolization; TREATMENT for venous thrombosis and/or pulmonary embolus.HIGH RISK: Target INR is 2.5-3.5 for patients with mechanical heart valves.CYTOMEGALOVIRUS ANTIBODY, [id number] 14:58:00 Test Item Value Reference Range Comments CYTOMEGALOVIRUS IGG ANTIBODY (BEAKER) (test Positive hqfs=064) CYTOMEGALOVIRUS ANTIBODY, [id number] 14:58:00 Test Item Value Reference Range Comments CYTOMEGALOVIRUS IGM ANTIBODY (BEAKER) (test Negative crxm=490) EBV-VCA ANTIBODY, [id number] 14:58:00 Test Item Value Reference Range Comments MARCELLUS-DAVIS VCA IGG (BEAKER) (test zvec=825) Positive EBV-VCA ANTIBODY, [id number] 14:58:00 Test Item Value Reference Range Comments MARCELLUS-DAVIS VCA IGM (BEAKER) (test hhaz=047) Negative BODY FLUID CELL COUNT WITH [id number] 14:27:00 Test Item Value Reference Range Comments APPEARANCE FLUID (BEAKER) (test ddrr=507) Slightly Hazy Clear COLOR FLUID (BEAKER) (test ralu=329) Yellow Colorless, Straw RBC FLUID (BEAKER) (test opbt=159) 378 /cu mm <=1 ADJUSTED WBC FLUID (BEAKER) (test yarv=3996) 84 /cu mm <=5 LINING CELLS (BEAKER) (test bkdi=5395) 17 /cu mm <=1 NEUTROPHILS FLUID (BEAKER) (test dxwi=2727) 1 % LYMPHS FLUID (BEAKER) (test wqgx=241) 14 % MONO/MACROPHAGE FLUID (BEAKER) (test 85 % csbq=654) EOSINOPHILS FLUID (BEAKER) (test vqjk=393) 0 % BASO FLUID (BEAKER) (test ozng=159) 0 % CONTAINER BODY FLUID (BEAKER) (test EDTA Tube fomw=3119) U/S, [id number] 11:17:00Reason for exam:->ascitesFINAL REPORT Ultrasound guided paracentesis, 01/01/2018. Clinical History:Ascites. Sedation: None. Offset Printer: Paul Butler MD Ssds Mk 2 Advanced Operator: None. Estimated Blood Loss: < 1 cc. [...] was achieved with 1% lidocaine, a 5 [place] one-step catheter was advanced into the peritoneal cavity under ultrasound guidance. After completion of drainage, the catheter was removed. There was no evidence ofcomplication. Patient Disposition: The patient was transferred to the inpatient unit from the ultrasound department after the paracentesis, in good condition. Impression:Successful ultrasound guided paracentesis. Signed: [facility] Verified Date/Time: 01/01/2018 11:17:26 Reading Location: [address] Ultrasound Reading Room CBC W/PLT COUNT & AUTO [id number] 08:55:00 Test Item Value Reference Range Comments WHITE BLOOD CELL COUNT (BEAKER) (test nfif=659) 2.6 K/ L 3.5-10.5 RED BLOOD CELL COUNT (BEAKER) (test gwhq=826) 2.17 M/ L 4.63-6.08 HEMOGLOBIN (BEAKER) (test olrf=144) 6.9 GM/DL 13.7-17.5 HEMATOCRIT (BEAKER) (test cnjn=529) 20.6 % 40.1-51.0 MEAN CORPUSCULAR VOLUME (BEAKER) (test cxtb=307) 94.9 fL 79.0-92.2 MEAN CORPUSCULAR HEMOGLOBIN (BEAKER) (test 31.8 pg 25.7-32.2 vufd=891) MEAN CORPUSCULAR HEMOGLOBIN CONC (BEAKER) (test 33.5 GM/DL 32.3-36.5 digt=172) RED CELL DISTRIBUTION WIDTH (BEAKER) (test 17.0 % 11.6-14.4 dqla=860) PLATELET COUNT (BEAKER) (test dgez=945) 43 K/CU MM 150-450 MEAN PLATELET VOLUME (BEAKER) (test tfcx=445) 9.3 fL 9.4-12.4 NUCLEATED RED BLOOD CELLS (BEAKER) (test 0 /100 WBC 0-0 kxif=938) NEUTROPHILS RELATIVE PERCENT (BEAKER) (test 62 % lstx=087) LYMPHOCYTES RELATIVE PERCENT (BEAKER) (test 13 % hmka=760) MONOCYTES RELATIVE PERCENT (BEAKER) (test 18 % klat=611) EOSINOPHILS RELATIVE PERCENT (BEAKER) (test 6 % xlsz=065) BASOPHILS RELATIVE PERCENT (BEAKER) (test 0 % hsmx=700) NEUTROPHILS ABSOLUTE COUNT (BEAKER) (test 1.58 K/ L 1.78-5.38 zeit=292) LYMPHOCYTES ABSOLUTE COUNT (BEAKER) (test 0.33 K/ L 1.32-3.57 jntv=183) MONOCYTES ABSOLUTE COUNT (BEAKER) (test cagt=691) 0.46 K/ L 0.30-0.82 EOSINOPHILS ABSOLUTE COUNT (BEAKER) (test 0.15 K/ L 0.04-0.54 edlf=325) BASOPHILS ABSOLUTE COUNT (BEAKER) (test binn=127) 0.01 K/ L 0.01-0.08 IMMATURE GRANULOCYTES-RELATIVE PERCENT (BEAKER) 1 % 0-1 (test qndd=3847) (MANUAL DIFFERENTIAL)2018-01-01 08:55:00 Test Item Value Reference Range Comments TOTAL COUNTED (BEAKER) (test mhmv=1460) CALCIUM, [id number] 07:43:00 Test Item Value Reference Range Comments CALCIUM IONIZED (BEAKER) (test qrdf=228) 1.14 mmol/L 1.12-1.27 PH, BLOOD (BEAKER) (test hbup=7924) 7.52 [id number] 06:11:00 Test Item Value Reference Range Comments PHOSPHORUS (BEAKER) (test qirc=039) 2.5 mg/dL 2.3-4.7 [id number] 06:11:00 Test Item Value Reference Range Comments MAGNESIUM (BEAKER) (test stct=248) 1.7 mg/dL 1.6-2.6 COMPREHENSIVE METABOLIC [id number] 06:11:00 Test Item Value Reference Range Comments TOTAL PROTEIN (BEAKER) 5.6 gm/dL 6.0-8.3 (test yprl=407) ALBUMIN (BEAKER) (test 3.6 g/dL 3.5-5.0 mfly=3312) ALKALINE PHOSPHATASE 68 U/L 40-150 (BEAKER) (test acmh=808) BILIRUBIN TOTAL (BEAKER) 2.7 mg/dL 0.2-1.2 (test mipq=631) SODIUM (BEAKER) (test 132 meq/L 136-145 gerz=563) POTASSIUM (BEAKER) (test 4.9 meq/L 3.5-5.1 mynf=391) CHLORIDE (BEAKER) (test 102 meq/L 98-107 nntc=141) CO2 (BEAKER) (test 24 meq/L 22-29 gwtj=197) BLOOD UREA NITROGEN 20 mg/dL 7-21 (BEAKER) (test zeqd=643) CREATININE (BEAKER) (test 1.17 mg/dL 0.57-1.25 iuvd=936) GLUCOSE RANDOM (BEAKER) 92 mg/dL 70-105 (test jlal=538) CALCIUM (BEAKER) (test 9.7 mg/dL 8.4-10.2 dxan=827) AST (SGOT) (BEAKER) (test 16 U/L 5-34 yccw=626) ALT (SGPT) (BEAKER) (test 8 U/L 6-55 saqu=051) EGFR (BEAKER) (test 65 mL/min/1.73 sq m ESTIMATED GFR IS NOT pkqo=3067) ACCURATE CREATININE CLEARANCE IN PREDICTING GLOMERULAR FILTRATION RATE. ESTIMATED GFR IS NOT APPLICABLE FOR DIALYSIS PATIENTS. Specimen slightly ictericPROTHROMBIN [id number] 06:00:00 Test Item Value Reference Range Comments PROTIME (TUNG) (test jmcp=211) 24.0 seconds 11.7-14.7 INR (TUNG) (test qukr=634) 2.2 <=5.9 RECOMMENDED COUMADIN/WARFARIN INR THERAPY RANGESSTANDARD DOSE: 2.0 - 3.0 Includes: PROPHYLAXIS forvenous thrombosis, systemic embolization; TREATMENT for venous thrombosis and/or pulmonary embolus.HIGH RISK: Target INR is 2.5-3.5 for patients with mechanical heart valves.CT, CHEST, WITHOUT [id number] 19:24:00FINAL REPORT HISTORY: Lung nodule, >=1cm COMPARISON [...] MDReport Verified Date/Time: 12/31/2017 19:24:12 Reading Location: [facility] C013W Consult Reading Room 07: 24 PMPERIPHERAL BLOOD SMEAR - HOLD [id number] 19:18:00 Test Item Value Reference Range Comments PERIPHERAL SMEAR SAVE (BEAKER) prepared and saved smear, (test nxzl=5688) 12/31/17 RETICULOCYTE [id number] 19:14:00 Test Item Value Reference Range Comments RETICULOCYTE COUNT PCT (BEAKER) (test hamj=567) 3.5 % 0.5-1.8 LACTATE DEHYDROGENASE (LDH)2017-12-31 17:47:00 Test Item Value Reference Range Comments LACTATE DEHYDROGENASE (BEAKER) (test zsnv=515) 112 U/L 125-220 BLOOD GAS, [id number] 17:27:00 Test Item Value Reference Range Comments PH ARTERIAL (BEAKER) (test hywc=146) 7.45 7.35-7.45 PCO2 ARTERIAL (BEAKER) (test yjwt=529) 36 mmHg 35-45 PO2 ARTERIAL (BEAKER) (test vvbw=837) 76 mmHg 80-90 O2 SATURATION ARTERIAL (BEAKER) (test myvh=669) 96.1 % 96.0-97.0 HCO3 ARTERIAL (BEAKER) (test vhjh=144) 24 mmol/L 21-29 BASE EXCESS ARTERIAL (BEAKER) (test qtnv=052) 0.2 mmol/L -2.0-3.0 PATIENT TEMPERATURE (BEAKER) (test fyrn=5827) 36.4 C FIO2 (BEAKER) (test gwvw=6760) 21.0 % MYOCARD IMAGING, MULTI, PHARM, [id number] 15:12:00FINAL REPORT PROCEDURE: Rest/Stress MYOCARDIAL PERFUSION SPECT with regadenoson\\XA9\\ CPT CODE: 91898 INDICATION: Liver transplant evaluation HISTORY: Cardiac risk [...] [place] Verified Date/Time: 12/31/2017 15:12:03 Reading Location: [address] Reading Room BILIRUBIN, [id number] 14:10:00 Test Item Value Reference Range Comments BILIRUBIN DIRECT (BEAKER) (test njsu=686) 1.6 mg/dL 0.1-0.5 HEMOGLOBIN AND [id number] 13:22:00 Test Item Value Reference Range Comments HEMOGLOBIN (BEAKER) (test wddo=268) 7.3 GM/DL 13.7-17.5 HEMATOCRIT (BEAKER) (test stwy=436) 21.9 % 40.1-51.0 CBC W/PLT COUNT & AUTO [id number] 11:06:00 Test Item Value Reference Range Comments WHITE BLOOD CELL COUNT (BEAKER) (test dlee=651) 2.2 K/ L 3.5-10.5 RED BLOOD CELL COUNT (BEAKER) (test uagj=632) 2.07 M/ L 4.63-6.08 HEMOGLOBIN (BEAKER) (test tltp=348) 6.8 GM/DL 13.7-17.5 HEMATOCRIT (BEAKER) (test pyxm=057) 19.6 % 40.1-51.0 MEAN CORPUSCULAR VOLUME (BEAKER) (test imam=932) 94.7 fL 79.0-92.2 MEAN CORPUSCULAR HEMOGLOBIN (BEAKER) (test 32.9 pg 25.7-32.2 wdyf=772) MEAN CORPUSCULAR HEMOGLOBIN CONC (BEAKER) (test 34.7 GM/DL 32.3-36.5 cvjz=119) RED CELL DISTRIBUTION WIDTH (BEAKER) (test 16.9 % 11.6-14.4 dlfp=953) PLATELET COUNT (BEAKER) (test fmph=930) 47 K/CU MM 150-450 MEAN PLATELET VOLUME (BEAKER) (test ybfn=625) 9.7 fL 9.4-12.4 NUCLEATED RED BLOOD CELLS (BEAKER) (test 0 /100 WBC 0-0 qgkp=778) NEUTROPHILS RELATIVE PERCENT (BEAKER) (test 54 % lbyz=001) LYMPHOCYTES RELATIVE PERCENT (BEAKER) (test 17 % vivk=217) MONOCYTES RELATIVE PERCENT (BEAKER) (test 21 % prhc=869) EOSINOPHILS RELATIVE PERCENT (BEAKER) (test 8 % kpsp=471) BASOPHILS RELATIVE PERCENT (BEAKER) (test 1 % mnuf=229) NEUTROPHILS ABSOLUTE COUNT (BEAKER) (test 1.17 K/ L 1.78-5.38 dqgg=591) LYMPHOCYTES ABSOLUTE COUNT (BEAKER) (test 0.36 K/ L 1.32-3.57 lwtt=127) MONOCYTES ABSOLUTE COUNT (BEAKER) (test tijb=238) 0.45 K/ L 0.30-0.82 EOSINOPHILS ABSOLUTE COUNT (BEAKER) (test 0.17 K/ L 0.04-0.54 gqmb=472) BASOPHILS ABSOLUTE COUNT (BEAKER) (test chof=698) 0.01 K/ L 0.01-0.08 IMMATURE GRANULOCYTES-RELATIVE PERCENT (BEAKER) 1 % 0-1 (test kwns=9485) (MANUAL DIFFERENTIAL)2017-12-31 11:06:00 Test Item Value Reference Range Comments TOTAL COUNTED (BEAKER) (test glmt=9532) [id number] 08:37:00 Test Item Value Reference Range Comments PROTIME (BEAKER) (test gbmz=575) 24.0 seconds 11.7-14.7 INR (BEAKER) (test dvys=599) 2.2 <=5.9 PARTIAL THROMBOPLASTIN TIME (BEAKER) (test 55.2 seconds 22.5-36.0 rwwi=856) RECOMMENDED COUMADIN/WARFARIN INR THERAPY RANGESSTANDARD DOSE: 2.0 - 3.0 Includes: PROPHYLAXIS forvenous thrombosis, systemic embolization; TREATMENT for venous thrombosis and/or pulmonary embolus.HIGH RISK: Target INR is 2.5-3.5 for patients with mechanical heart valves.COMPREHENSIVE METABOLIC [id number] 06:37:00 Test Item Value Reference Range Comments TOTAL PROTEIN (BEAKER) 5.7 gm/dL 6.0-8.3 (test owtx=756) ALBUMIN (BEAKER) (test 3.7 g/dL 3.5-5.0 tzkc=6949) ALKALINE PHOSPHATASE 70 U/L 40-150 (BEAKER) (test ljhr=555) BILIRUBIN TOTAL (BEAKER) 2.6 mg/dL 0.2-1.2 (test ghtv=130) SODIUM (BEAKER) (test 130 meq/L 136-145 obae=754) POTASSIUM (BEAKER) (test 5.2 meq/L 3.5-5.1 ixpi=063) CHLORIDE (BEAKER) (test 100 meq/L 98-107 yevd=630) CO2 (BEAKER) (test 25 meq/L 22-29 vvxc=659) BLOOD UREA NITROGEN 20 mg/dL 7-21 (BEAKER) (test xkqv=678) CREATININE (BEAKER) (test 1.08 mg/dL 0.57-1.25 aacy=848) GLUCOSE RANDOM (BEAKER) 91 mg/dL 70-105 (test myop=753) CALCIUM (BEAKER) (test 9.6 mg/dL 8.4-10.2 khlo=150) AST (SGOT) (BEAKER) (test 16 U/L 5-34 tzon=981) ALT (SGPT) (BEAKER) (test 6 U/L 6-55 oilr=186) EGFR (BEAKER) (test 72 mL/min/1.73 sq m ESTIMATED GFR IS NOT lxsl=4969) ACCURATE CREATININE CLEARANCE IN PREDICTING GLOMERULAR FILTRATION RATE. ESTIMATED GFR IS NOT APPLICABLE FOR DIALYSIS PATIENTS. Specimen slightly [id number] 06:01:00 Test Item Value Reference Range Comments RPR SCREEN (BEAKER) (test ahzm=788) Nonreactive Nonreactive CRYPTOCOCCAL [id number] 05:59:00 Test Item Value Reference Range Comments CRYPTOCOCCAL ANTIGEN, SERUM (BEAKER) (test Negative Negative, Interference drms=9144) RAD, MANDIBLE, MIN 4 [id number] 01:37:00Reason for exam:->liver transplant evalShould this be [...] [place] Verified Date/Time: 12/31/2017 01:37:57 Reading Location: [address] Reading Room Electronically signed by: SLICK BARCENAS M.D. on 04/2018 01:37 AMRAD, CHEST, 2 [id number] 23:32:00Reason for exam:-> liver transplant evalShould this [...] [place] Verified Date/Time: 12/30/2017 23:32:31 Reading Location: [address] Reading Room HEMOGLOBIN [id number] 22:54:00 Test Item Value Reference Range Comments HEMOGLOBIN A1C (BEAKER) (test gqks=103) 4.1 % 4.3-6.1 HEPATITIS B SURFACE [id number] 16:31:00 Test Item Value Reference Range Comments HEPATITIS B SURFACE ANTIBODY (BEAKER) (test < mIU/mL <8.0 fkxr=182) HEPATITIS B SURFACE [id number] 16:29:00 Test Item Value Reference Range Comments HEPATITIS B SURFACE ANTIGEN (2) (BEAKER) (test Nonreactive Nonreactive jxde=0001) HEPATITIS B CORE ANTIBODY, [id number] 16:29:00 Test Item Value Reference Range Comments HEPATITIS B CORE IGM ANTIBODY (BEAKER) (test Nonreactive Nonreactive jlnp=526) HEPATITIS A ANTIBODY, [id number] 16:29:00 Test Item Value Reference Range Comments HEPATITIS A IGM ANTIBODY (BEAKER) (test Nonreactive Nonreactive xekv=231) HEPATITIS B CORE ANTIBODY, [id number] 16:29:00 Test Item Value Reference Range Comments HEPATITIS B CORE TOTAL ANTIBODY (BEAKER) (test Nonreactive Nonreactive nqxx=786) [id number] 16:26:00 Test Item Value Reference Range Comments T4 TOTAL (BEAKER) (test otsj=723) 3.5 ug/dL 4.9-11.7 [id number] 16:26:00 Test Item Value Reference Range Comments T3 TOTAL (BEAKER) (test hyya=903) 42 ng/dL 48-159 [id number] 16:24:00 Test Item Value Reference Range Comments FERRITIN (BEAKER) (test ppeu=801) 1460 ng/mL 5-275 VITAMIN D, [id number] 16:24:00 Test Item Value Reference Range Comments VITAMIN D 25-OH (BEAKER) (test wieb=0315) 6.9 ng/mL 6.6-49.9 Effective 08/06/2017: Reference Range ChangeNew: 6.6-49.9 ng/mL Previous: 13.0 -47.8 ng/mLRecommended Vitamin D Target Range: 30.0-40.0 ng/[id number] 16: 24:00 Test Item Value Reference Range Comments THYROID STIMULATING HORMONE (BEAKER) (test 1.55 uIU/mL 0.35-4.94 rshy=698) CARCINOEMBRYONIC ANTIGEN (CEA)2017-12-30 16:24:00 Test Item Value Reference Range Comments CARCINOEMBRYONIC ANTIGEN (BEAKER) (test xjrl=700) 3.0 ng/mL 0.0-5.0 [id number] 16:23:00 Test Item Value Reference Range Comments PROSTATE SPECIFIC ANTIGEN (BEAKER) (test btgy=099) 0.1 ng/mL 0.0-4.0 HIV-1 ANTIGEN WITH HIV-1/2 [id number] 16:23:00 Test Item Value Reference Range Comments HIV-1 ANTIGEN WITH HIV 1\\T\\2 ANTIBODY (2) Nonreactive Nonreactive (BEAKER) (test pwqr=6644) HEPATITIS C [id number] 16:23:00 Test Item Value Reference Range Comments HEPATITIS C ANTIBODY (BEAKER) (test ogus=291) Nonreactive Nonreactive LIPID [id number] 16:06:00 Test Item Value Reference Range Comments TRIGLYCERIDES (BEAKER) (test zjuk=447) 38 mg/dL CHOLESTEROL (BEAKER) (test gfkb=534) 51 mg/dL HDL CHOLESTEROL (BEAKER) (test onzl=571) 10 mg/dL LDL CHOLESTEROL CALCULATED (BEAKER) (test auhp=891) 33 mg/dL Triglyceride Reference Range: Low Risk [...] Value Reference Range Comments IRON (BEAKER) (test vkxk=089) 90 ug/dL 40-160 TOTAL IRON BINDING CAPACITY (BEAKER) (test 85 ug/dL 250-450 cezy=545) IRON % SATURATION (2) (BEAKER) (test nrdl=3000) 106 % 20-55 [id number] 16:04:00 Test Item Value Reference Range Comments TRANSFERRIN (BEAKER) (test lqnm=221) 65 mg/dL 174-382 Specimen slightly ictericURIC [id number] 16:02:00 Test Item Value Reference Range Comments URIC ACID (BEAKER) (test xpai=454) 8.5 mg/dL 2.6-7.2 Specimen slightly [id number] 15:50:00 Test Item Value Reference Range Comments FIBRINOGEN LEVEL (BEAKER) (test pfob=284) 161 mg/dl 225-434 BODY FLUID CULTURE + GRAM [id number] 11:45:00 Test Item Value Reference Range Comments CULTURE (BEAKER) (test jdzj=4169) No growth GRAM STAIN RESULT (BEAKER) (test No WBCs qnja=2289) GRAM STAIN RESULT (BEAKER) (test No organisms seen lldn=97408) CBC W/PLT COUNT & AUTO [id number] 08:05:00 Test Item Value Reference Range Comments WHITE BLOOD CELL COUNT (BEAKER) (test khhg=093) 2.0 K/ L 3.5-10.5 RED BLOOD CELL COUNT (BEAKER) (test aovd=999) 2.20 M/ L 4.63-6.08 HEMOGLOBIN (BEAKER) (test dsuv=660) 7.1 GM/DL 13.7-17.5 HEMATOCRIT (BEAKER) (test cmru=250) 20.8 % 40.1-51.0 MEAN CORPUSCULAR VOLUME (BEAKER) (test hvqz=175) 94.5 fL 79.0-92.2 MEAN CORPUSCULAR HEMOGLOBIN (BEAKER) (test 32.3 pg 25.7-32.2 zuul=273) MEAN CORPUSCULAR HEMOGLOBIN CONC (BEAKER) (test 34.1 GM/DL 32.3-36.5 jcgg=971) RED CELL DISTRIBUTION WIDTH (BEAKER) (test 17.0 % 11.6-14.4 ilxm=808) PLATELET COUNT (BEAKER) (test dczc=012) 52 K/CU MM 150-450 MEAN PLATELET VOLUME (BEAKER) (test edlk=828) 10.7 fL 9.4-12.4 NUCLEATED RED BLOOD CELLS (BEAKER) (test 0 /100 WBC 0-0 vhkj=861) NEUTROPHILS RELATIVE PERCENT (BEAKER) (test 55 % hrtk=311) LYMPHOCYTES RELATIVE PERCENT (BEAKER) (test 16 % ttud=326) MONOCYTES RELATIVE PERCENT (BEAKER) (test 20 % cgan=819) EOSINOPHILS RELATIVE PERCENT (BEAKER) (test 8 % qynw=993) BASOPHILS RELATIVE PERCENT (BEAKER) (test 1 % wafr=450) NEUTROPHILS ABSOLUTE COUNT (BEAKER) (test 1.10 K/ L 1.78-5.38 xarg=973) LYMPHOCYTES ABSOLUTE COUNT (BEAKER) (test 0.32 K/ L 1.32-3.57 jrmx=664) MONOCYTES ABSOLUTE COUNT (BEAKER) (test rbzy=209) 0.40 K/ L 0.30-0.82 EOSINOPHILS ABSOLUTE COUNT (BEAKER) (test 0.16 K/ L 0.04-0.54 pjys=622) BASOPHILS ABSOLUTE COUNT (BEAKER) (test nxhc=519) 0.01 K/ L 0.01-0.08 IMMATURE GRANULOCYTES-RELATIVE PERCENT (BEAKER) 1 % 0-1 (test rfeq=4172) (MANUAL DIFFERENTIAL)2017-12-30 08:05:00 Test Item Value Reference Range Comments TOTAL COUNTED (BEAKER) (test jhki=6324) URINALYSIS W/ [id number] 06:46:00 Test Item Value Reference Range Comments COLOR (BEAKER) (test xmmi=755) Yellow CLARITY (BEAKER) (test cwts=543) Clear SPECIFIC GRAVITY UA (BEAKER) (test ewsl=705) 1.008 1.001-1.035 PH UA (BEAKER) (test acpr=044) 6.0 5.0-8.0 PROTEIN UA (BEAKER) (test vlmj=642) Negative Negative GLUCOSE UA (BEAKER) (test lgbk=070) Negative Negative KETONES UA (BEAKER) (test ipzj=913) Negative Negative BILIRUBIN UA (BEAKER) (test bhtx=990) Negative Negative BLOOD UA (BEAKER) (test ddeo=409) Negative Negative NITRITE UA (BEAKER) (test rjbi=103) Negative Negative LEUKOCYTE ESTERASE UA (BEAKER) (test exdd=161) Negative Negative UROBILINOGEN UA (BEAKER) (test qfcc=570) 0.2 mg/dL 0.2-1.0 RBC UA (BEAKER) (test foyf=236) 0 /HPF WBC UA (BEAKER) (test zwlm=065) 0 /HPF HYALINE CASTS (BEAKER) (test twfl=998) 5 /LPF SOURCE(BEAKER) (test mexo=6240) Urine, Voided SODIUM, RANDOM [id number] 06:35:00 Test Item Value Reference Range Comments SODIUM URINE (BEAKER) (test vtki=041) < meq/L Reference Range: No NormalsPROTEIN, RANDOM [id number] 06:35:00 Test Item Value Reference Range Comments PROTEIN, URINE (BEAKER) (test enta=9089) < mg/dL 0-14 [id number] 06:21:00 Test Item Value Reference Range Comments MAGNESIUM (BEAKER) (test 1.8 mg/dL 1.6-2.6 Specimen slightly hemolyzed swne=133) [id number] 06:21:00 Test Item Value Reference Range Comments PHOSPHORUS (BEAKER) (test 2.9 mg/dL 2.3-4.7 Specimen slightly hemolyzed eshz=010) COMPREHENSIVE METABOLIC [id number] 06:21:00 Test Item Value Reference Range Comments TOTAL PROTEIN (BEAKER) 5.6 gm/dL 6.0-8.3 Specimen slightly (test zcvk=718) hemolyzed ALBUMIN (BEAKER) (test 3.5 g/dL 3.5-5.0 Specimen slightly qfxl=8189) hemolyzed ALKALINE PHOSPHATASE 75 U/L 40-150 (BEAKER) (test exip=691) BILIRUBIN TOTAL (BEAKER) 3.0 mg/dL 0.2-1.2 Specimen slightly (test kdqq=535) hemolyzed SODIUM (BEAKER) (test 127 meq/L 136-145 kdia=410) POTASSIUM (BEAKER) (test 5.2 meq/L 3.5-5.1 Specimen slightly eqtp=845) hemolyzed CHLORIDE (BEAKER) (test 97 meq/L 98-107 uvvd=070) CO2 (BEAKER) (test 24 meq/L 22-29 upxl=334) BLOOD UREA NITROGEN 22 mg/dL 7-21 (BEAKER) (test lrpj=767) CREATININE (BEAKER) (test 1.11 mg/dL 0.57-1.25 Specimen slightly wkiv=688) hemolyzed GLUCOSE RANDOM (BEAKER) 94 mg/dL 70-105 (test trrp=244) CALCIUM (BEAKER) (test 9.4 mg/dL 8.4-10.2 tcqa=080) AST (SGOT) (BEAKER) (test 22 U/L 5-34 Specimen slightly ejyl=116) hemolyzed ALT (SGPT) (BEAKER) (test 7 U/L 6-55 Specimen slightly nevi=004) hemolyzed EGFR (BEAKER) (test 70 mL/min/1.73 sq m ESTIMATED GFR IS NOT xjbr=6856) ACCURATE CREATININE CLEARANCE IN PREDICTING GLOMERULAR FILTRATION RATE. ESTIMATED GFR IS NOT APPLICABLE FOR DIALYSIS PATIENTS. Specimen slightly ictericCREATININE, RANDOM [id number] 06:19:00 Test Item Value Reference Range Comments CREATININE URINE (BEAKER) (test rytq=514) 60.6 mg/dL Reference Range: No [id number] 13:43:00 Test Item Value Reference Range Comments ETHANOL (BEAKER) (test bzfv=362) < mg/dL <=10 COMPREHENSIVE METABOLIC [id number] 08:23:00 Test Item Value Reference Range Comments TOTAL PROTEIN (BEAKER) 5.5 gm/dL 6.0-8.3 (test lcue=445) ALBUMIN (BEAKER) (test 3.3 g/dL 3.5-5.0 urky=9976) ALKALINE PHOSPHATASE 85 U/L 40-150 (BEAKER) (test lpbf=957) BILIRUBIN TOTAL (BEAKER) 3.8 mg/dL 0.2-1.2 (test njli=870) SODIUM (BEAKER) (test 125 meq/L 136-145 ueno=652) POTASSIUM (BEAKER) (test 4.7 meq/L 3.5-5.1 wjmo=975) CHLORIDE (BEAKER) (test 96 meq/L 98-107 qlky=160) CO2 (BEAKER) (test 21 meq/L 22-29 hyfu=283) BLOOD UREA NITROGEN 22 mg/dL 7-21 (BEAKER) (test kyfs=515) CREATININE (BEAKER) (test 1.26 mg/dL 0.57-1.25 cqsv=933) GLUCOSE RANDOM (BEAKER) 95 mg/dL 70-105 (test ktnh=833) CALCIUM (BEAKER) (test 9.1 mg/dL 8.4-10.2 suab=297) AST (SGOT) (BEAKER) (test 20 U/L 5-34 rksk=189) ALT (SGPT) (BEAKER) (test 8 U/L 6-55 bnmr=762) EGFR (BEAKER) (test 60 mL/min/1.73 sq m ESTIMATED GFR IS NOT whnb=7150) ACCURATE CREATININE CLEARANCE IN PREDICTING GLOMERULAR FILTRATION RATE. ESTIMATED GFR IS NOT APPLICABLE FOR DIALYSIS PATIENTS. Specimen slightly ictericCBC W/PLT COUNT & AUTO [id number] 07:17 :00 Test Item Value Reference Range Comments WHITE BLOOD CELL COUNT (BEAKER) (test rbmb=452) 2.8 K/ L 3.5-10.5 RED BLOOD CELL COUNT (BEAKER) (test kccc=972) 2.28 M/ L 4.63-6.08 HEMOGLOBIN (BEAKER) (test guzo=912) 7.3 GM/DL 13.7-17.5 HEMATOCRIT (BEAKER) (test hpwu=335) 21.4 % 40.1-51.0 MEAN CORPUSCULAR VOLUME (BEAKER) (test sqav=792) 93.9 fL 79.0-92.2 MEAN CORPUSCULAR HEMOGLOBIN (BEAKER) (test 32.0 pg 25.7-32.2 vvye=791) MEAN CORPUSCULAR HEMOGLOBIN CONC (BEAKER) (test 34.1 GM/DL 32.3-36.5 jwbs=144) RED CELL DISTRIBUTION WIDTH (BEAKER) (test 16.9 % 11.6-14.4 bwwf=981) PLATELET COUNT (BEAKER) (test iywq=023) 52 K/CU MM 150-450 MEAN PLATELET VOLUME (BEAKER) (test rovb=731) 9.8 fL 9.4-12.4 NUCLEATED RED BLOOD CELLS (BEAKER) (test 0 /100 WBC 0-0 pkph=623) NEUTROPHILS RELATIVE PERCENT (BEAKER) (test 61 % nrdf=975) LYMPHOCYTES RELATIVE PERCENT (BEAKER) (test 14 % dcqv=888) MONOCYTES RELATIVE PERCENT (BEAKER) (test 18 % ywic=329) EOSINOPHILS RELATIVE PERCENT (BEAKER) (test 7 % srsk=345) BASOPHILS RELATIVE PERCENT (BEAKER) (test 0 % xyal=296) NEUTROPHILS ABSOLUTE COUNT (BEAKER) (test 1.69 K/ L 1.78-5.38 ptgm=660) LYMPHOCYTES ABSOLUTE COUNT (BEAKER) (test 0.38 K/ L 1.32-3.57 qkzz=998) MONOCYTES ABSOLUTE COUNT (BEAKER) (test tvzv=953) 0.51 K/ L 0.30-0.82 EOSINOPHILS ABSOLUTE COUNT (BEAKER) (test 0.18 K/ L 0.04-0.54 tavx=570) BASOPHILS ABSOLUTE COUNT (BEAKER) (test qflr=130) 0.01 K/ L 0.01-0.08 IMMATURE GRANULOCYTES-RELATIVE PERCENT (BEAKER) 1 % 0-1 (test mmzt=2819) CT, [id number] 22:20:00FINAL REPORT EXAM: CT of the abdomen [...] MDReport Verified Date/Time: 12/28/2017 22:20:52 Reading Location: [address] Transitional Reading Room CBC W/PLT COUNT & AUTO [id number] 18:06:00 Test Item Value Reference Range Comments WHITE BLOOD CELL COUNT (BEAKER) (test wifq=933) 2.9 K/ L 3.5-10.5 RED BLOOD CELL COUNT (BEAKER) (test azni=837) 2.03 M/ L 4.63-6.08 HEMOGLOBIN (BEAKER) (test erxc=712) 6.5 GM/DL 13.7-17.5 HEMATOCRIT (BEAKER) (test ywju=247) 19.2 % 40.1-51.0 MEAN CORPUSCULAR VOLUME (BEAKER) (test fees=737) 94.6 fL 79.0-92.2 MEAN CORPUSCULAR HEMOGLOBIN (BEAKER) (test 32.0 pg 25.7-32.2 ttzm=800) MEAN CORPUSCULAR HEMOGLOBIN CONC (BEAKER) (test 33.9 GM/DL 32.3-36.5 enyy=505) RED CELL DISTRIBUTION WIDTH (BEAKER) (test 17.6 % 11.6-14.4 diew=955) PLATELET COUNT (BEAKER) (test okby=711) 46 K/CU MM 150-450 MEAN PLATELET VOLUME (BEAKER) (test mrut=350) 9.3 fL 9.4-12.4 NUCLEATED RED BLOOD CELLS (BEAKER) (test 0 /100 WBC 0-0 voud=424) NEUTROPHILS RELATIVE PERCENT (BEAKER) (test 66 % yovl=632) LYMPHOCYTES RELATIVE PERCENT (BEAKER) (test 12 % mczy=023) MONOCYTES RELATIVE PERCENT (BEAKER) (test 15 % zxsg=506) EOSINOPHILS RELATIVE PERCENT (BEAKER) (test 6 % raeu=852) BASOPHILS RELATIVE PERCENT (BEAKER) (test 0 % kacm=835) NEUTROPHILS ABSOLUTE COUNT (BEAKER) (test 1.92 K/ L 1.78-5.38 dfbx=831) LYMPHOCYTES ABSOLUTE COUNT (BEAKER) (test 0.36 K/ L 1.32-3.57 ospy=075) MONOCYTES ABSOLUTE COUNT (BEAKER) (test bdhc=042) 0.44 K/ L 0.30-0.82 EOSINOPHILS ABSOLUTE COUNT (BEAKER) (test 0.16 K/ L 0.04-0.54 ethx=718) BASOPHILS ABSOLUTE COUNT (BEAKER) (test btom=169) 0.01 K/ L 0.01-0.08 IMMATURE GRANULOCYTES-RELATIVE PERCENT (BEAKER) 1 % 0-1 (test ywbj=7261) CBC W/PLT COUNT & AUTO [id number] 12:30:00 Test Item Value Reference Range Comments WHITE BLOOD CELL COUNT (BEAKER) (test iuuv=081) 3.1 K/ L 3.5-10.5 RED BLOOD CELL COUNT (BEAKER) (test spkj=412) 2.09 M/ L 4.63-6.08 HEMOGLOBIN (BEAKER) (test tjwj=152) 6.8 GM/DL 13.7-17.5 HEMATOCRIT (BEAKER) (test vdam=365) 19.9 % 40.1-51.0 MEAN CORPUSCULAR VOLUME (BEAKER) (test wzxu=563) 95.2 fL 79.0-92.2 MEAN CORPUSCULAR HEMOGLOBIN (BEAKER) (test 32.5 pg 25.7-32.2 unex=332) MEAN CORPUSCULAR HEMOGLOBIN CONC (BEAKER) (test 34.2 GM/DL 32.3-36.5 ybty=394) RED CELL DISTRIBUTION WIDTH (BEAKER) (test 17.5 % 11.6-14.4 ijuz=074) PLATELET COUNT (BEAKER) (test cify=847) 65 K/CU MM 150-450 MEAN PLATELET VOLUME (BEAKER) (test xtgj=729) 10.6 fL 9.4-12.4 NUCLEATED RED BLOOD CELLS (BEAKER) (test 0 /100 WBC 0-0 nrzk=903) NEUTROPHILS RELATIVE PERCENT (BEAKER) (test 60 % quae=531) LYMPHOCYTES RELATIVE PERCENT (BEAKER) (test 14 % shno=677) MONOCYTES RELATIVE PERCENT (BEAKER) (test 17 % avut=978) EOSINOPHILS RELATIVE PERCENT (BEAKER) (test 8 % jndg=166) BASOPHILS RELATIVE PERCENT (BEAKER) (test 0 % oapz=909) NEUTROPHILS ABSOLUTE COUNT (BEAKER) (test 1.85 K/ L 1.78-5.38 ntrc=551) LYMPHOCYTES ABSOLUTE COUNT (BEAKER) (test 0.42 K/ L 1.32-3.57 ptzx=366) MONOCYTES ABSOLUTE COUNT (BEAKER) (test jpry=610) 0.52 K/ L 0.30-0.82 EOSINOPHILS ABSOLUTE COUNT (BEAKER) (test 0.26 K/ L 0.04-0.54 grnu=325) BASOPHILS ABSOLUTE COUNT (BEAKER) (test rkjw=888) 0.01 K/ L 0.01-0.08 IMMATURE GRANULOCYTES-RELATIVE PERCENT (BEAKER) 1 % 0-1 (test ywos=3847) U/S, [id number] 06:59:00Limit fluid removal to no more than 5 litersReason for exam:->ascites, concern for sbpShould thisbe performed at the bedside?->NoFINAL REPORT Paracentesis dated 2017 Procedure: Ultrasound-guided paracentesis. Preprocedure diagnosis: Ascites Postprocedure diagnosis: Ascites Conscious sedation: None. Radiologist: Lena Lynn M.D. Ssds Mk 2 Advanced Operator: None Anesthesia: 1% Xylocaine mixed with sodium bicarbonate local anesthesia. Technique: After obtaining informed consent, ultrasound-guided paracentesis was performed under usual sterile technique. Using a 5 bulgarian drainage catheter, puncture was made in the right lower quadrant abdomen. Approximately 5000 cc of serous fluid was removed. Patient tolerated the procedure well without complication. Complication: None Graft/ Implant: None Estimated Blood Loss: NoneImpression: Ultrasound-guided paracentesis. Signed: Lena Lynn Verified Date/Time: 12/28/2017 06:59 :16 Reading Location: [facility] B1 C013Y CT Body Reading Room ALPHA FETOPROTEIN (AFP), TUMOR [id number] 06:22:00 Test Item Value Reference Range Comments ALPHA-FETOPROTEIN (BEAKER) (test kohg=7264) 4.1 ng/mL <10.0 COMPREHENSIVE METABOLIC [id number] 06:00:00 Test Item Value Reference Range Comments TOTAL PROTEIN (BEAKER) 5.3 gm/dL 6.0-8.3 (test eccy=776) ALBUMIN (BEAKER) (test 2.7 g/dL 3.5-5.0 pweu=0542) ALKALINE PHOSPHATASE 94 U/L 40-150 (BEAKER) (test qeqy=791) BILIRUBIN TOTAL (BEAKER) 3.7 mg/dL 0.2-1.2 (test viop=286) SODIUM (BEAKER) (test 124 meq/L 136-145 pbdo=416) POTASSIUM (BEAKER) (test 4.6 meq/L 3.5-5.1 yqvt=643) CHLORIDE (BEAKER) (test 96 meq/L 98-107 jayi=696) CO2 (BEAKER) (test 22 meq/L 22-29 bdxv=176) BLOOD UREA NITROGEN 22 mg/dL 7-21 (BEAKER) (test xyhf=927) CREATININE (BEAKER) (test 1.40 mg/dL 0.57-1.25 zkoh=388) GLUCOSE RANDOM (BEAKER) 89 mg/dL 70-105 (test mhoc=029) CALCIUM (BEAKER) (test 8.8 mg/dL 8.4-10.2 byqm=158) AST (SGOT) (BEAKER) (test 25 U/L 5-34 rwkt=277) ALT (SGPT) (BEAKER) (test 10 U/L 6-55 spuc=916) EGFR (BEAKER) (test 53 mL/min/1.73 sq m ESTIMATED GFR IS NOT wgsd=4445) ACCURATE CREATININE CLEARANCE IN PREDICTING GLOMERULAR FILTRATION RATE. ESTIMATED GFR IS NOT APPLICABLE FOR DIALYSIS PATIENTS. Specimen slightly ictericCBC W/PLT COUNT & AUTO [id number] 05:50 :00 Test Item Value Reference Range Comments WHITE BLOOD CELL COUNT (BEAKER) (test pjth=128) 3.1 K/ L 3.5-10.5 RED BLOOD CELL COUNT (BEAKER) (test clzs=826) 2.00 M/ L 4.63-6.08 HEMOGLOBIN (BEAKER) (test dvsy=374) 6.4 GM/DL 13.7-17.5 HEMATOCRIT (BEAKER) (test rxdt=896) 18.9 % 40.1-51.0 MEAN CORPUSCULAR VOLUME (BEAKER) (test niqj=030) 94.5 fL 79.0-92.2 MEAN CORPUSCULAR HEMOGLOBIN (BEAKER) (test 32.0 pg 25.7-32.2 jbqz=690) MEAN CORPUSCULAR HEMOGLOBIN CONC (BEAKER) (test 33.9 GM/DL 32.3-36.5 qena=170) RED CELL DISTRIBUTION WIDTH (BEAKER) (test 17.9 % 11.6-14.4 bwoi=413) PLATELET COUNT (BEAKER) (test tycd=195) 59 K/CU MM 150-450 MEAN PLATELET VOLUME (BEAKER) (test euie=563) 10.4 fL 9.4-12.4 NUCLEATED RED BLOOD CELLS (BEAKER) (test 0 /100 WBC 0-0 adet=710) NEUTROPHILS RELATIVE PERCENT (BEAKER) (test 63 % flcj=025) LYMPHOCYTES RELATIVE PERCENT (BEAKER) (test 14 % btza=288) MONOCYTES RELATIVE PERCENT (BEAKER) (test 15 % just=228) EOSINOPHILS RELATIVE PERCENT (BEAKER) (test 7 % ulub=957) BASOPHILS RELATIVE PERCENT (BEAKER) (test 0 % qgpy=273) NEUTROPHILS ABSOLUTE COUNT (BEAKER) (test 1.94 K/ L 1.78-5.38 eigy=276) LYMPHOCYTES ABSOLUTE COUNT (BEAKER) (test 0.44 K/ L 1.32-3.57 npve=713) MONOCYTES ABSOLUTE COUNT (BEAKER) (test vctb=693) 0.47 K/ L 0.30-0.82 EOSINOPHILS ABSOLUTE COUNT (BEAKER) (test 0.21 K/ L 0.04-0.54 xtap=999) BASOPHILS ABSOLUTE COUNT (BEAKER) (test nnck=533) 0.01 K/ L 0.01-0.08 IMMATURE GRANULOCYTES-RELATIVE PERCENT (BEAKER) 1 % 0-1 (test utpm=1124) BODY FLUID CELL COUNT WITH [id number] 20:39:00 Test Item Value Reference Range Comments APPEARANCE FLUID (BEAKER) (test ilfp=025) Slightly Hazy Clear COLOR FLUID (BEAKER) (test yglb=102) Yellow Colorless, Straw RBC FLUID (BEAKER) (test utsp=184) 90 /cu mm <=1 ADJUSTED WBC FLUID (BEAKER) (test huoy=9363) 47 /cu mm <=5 LINING CELLS (BEAKER) (test ldbb=7040) 3 /cu mm <=1 NEUTROPHILS FLUID (BEAKER) (test dbav=1244) 2 % LYMPHS FLUID (BEAKER) (test nkrz=935) 19 % MONO/MACROPHAGE FLUID (BEAKER) (test 79 % dogj=376) EOSINOPHILS FLUID (BEAKER) (test whqf=385) 0 % BASO FLUID (BEAKER) (test yvgm=018) 0 % CONTAINER BODY FLUID (BEAKER) (test EDTA Tube deru=6916) ALBUMIN, BODY [id number] 20:14:00 Test Item Value Reference Range Comments ALBUMIN FLUID (BEAKER) (test whmk=658) 0.4 gm/dL Reference Range: No Normals Assay performance has not been validated for this type of specimen.BASIC METABOLIC [id number] 10:31:00 Test Item Value Reference Range Comments SODIUM (BEAKER) (test 125 meq/L 136-145 vghk=495) POTASSIUM (BEAKER) (test 4.5 meq/L 3.5-5.1 rysu=234) CHLORIDE (BEAKER) (test 98 meq/L 98-107 aeyx=127) CO2 (BEAKER) (test 20 meq/L 22-29 yons=235) BLOOD UREA NITROGEN 22 mg/dL 7-21 (BEAKER) (test lzbu=946) CREATININE (BEAKER) (test 1.45 mg/dL 0.57-1.25 quac=207) GLUCOSE RANDOM (BEAKER) 87 mg/dL 70-105 (test gfye=125) CALCIUM (BEAKER) (test 8.6 mg/dL 8.4-10.2 uner=062) EGFR (BEAKER) (test 51 mL/min/1.73 sq m ESTIMATED GFR IS NOT tiss=9550) ACCURATE CREATININE CLEARANCE IN PREDICTING GLOMERULAR FILTRATION RATE. ESTIMATED GFR IS NOT APPLICABLE FOR DIALYSIS PATIENTS. Specimen slightly ictericHEPATIC FUNCTION [id number] 10:31:00 Test Item Value Reference Range Comments TOTAL PROTEIN (BEAKER) (test twnl=093) 5.8 gm/dL 6.0-8.3 ALBUMIN (BEAKER) (test qgsl=5722) 2.4 g/dL 3.5-5.0 BILIRUBIN TOTAL (BEAKER) (test alqx=971) 4.1 mg/dL 0.2-1.2 BILIRUBIN DIRECT (BEAKER) (test vvwy=674) 3.1 mg/dL 0.1-0.5 ALKALINE PHOSPHATASE (BEAKER) (test ejcx=004) 126 U/L 40-150 AST (SGOT) (BEAKER) (test beoq=867) 28 U/L 5-34 ALT (SGPT) (BEAKER) (test oiot=779) 13 U/L 6-55 Specimen slightly ictericCBC W/PLT COUNT & AUTO [id number] 10:09 :00 Test Item Value Reference Range Comments WHITE BLOOD CELL COUNT (BEAKER) (test dskx=270) 5.5 K/ L 3.5-10.5 RED BLOOD CELL COUNT (BEAKER) (test gswo=025) 2.56 M/ L 4.63-6.08 HEMOGLOBIN (BEAKER) (test blic=667) 8.1 GM/DL 13.7-17.5 HEMATOCRIT (BEAKER) (test qakc=012) 24.2 % 40.1-51.0 MEAN CORPUSCULAR VOLUME (BEAKER) (test rolg=696) 94.5 fL 79.0-92.2 MEAN CORPUSCULAR HEMOGLOBIN (BEAKER) (test 31.6 pg 25.7-32.2 qbkh=734) MEAN CORPUSCULAR HEMOGLOBIN CONC (BEAKER) (test 33.5 GM/DL 32.3-36.5 ymyv=562) RED CELL DISTRIBUTION WIDTH (BEAKER) (test 18.6 % 11.6-14.4 vmhu=248) PLATELET COUNT (BEAKER) (test nuha=538) 86 K/CU MM 150-450 MEAN PLATELET VOLUME (BEAKER) (test nyub=798) 9.7 fL 9.4-12.4 NUCLEATED RED BLOOD CELLS (BEAKER) (test 0 /100 WBC 0-0 dibg=919) NEUTROPHILS RELATIVE PERCENT (BEAKER) (test 65 % eczk=147) LYMPHOCYTES RELATIVE PERCENT (BEAKER) (test 13 % yrrm=572) MONOCYTES RELATIVE PERCENT (BEAKER) (test 14 % bzsq=036) EOSINOPHILS RELATIVE PERCENT (BEAKER) (test 6 % fnso=619) BASOPHILS RELATIVE PERCENT (BEAKER) (test 0 % dgrg=277) NEUTROPHILS ABSOLUTE COUNT (BEAKER) (test 3.59 K/ L 1.78-5.38 bdva=600) LYMPHOCYTES ABSOLUTE COUNT (BEAKER) (test 0.73 K/ L 1.32-3.57 uplh=135) MONOCYTES ABSOLUTE COUNT (BEAKER) (test fxvz=870) 0.76 K/ L 0.30-0.82 EOSINOPHILS ABSOLUTE COUNT (BEAKER) (test 0.33 K/ L 0.04-0.54 ysba=412) BASOPHILS ABSOLUTE COUNT (BEAKER) (test yncd=265) 0.02 K/ L 0.01-0.08 IMMATURE GRANULOCYTES-RELATIVE PERCENT (BEAKER) 1 % 0-1 (test dwud=9883) PROTHROMBIN [id number] 07:51:00 Test Item Value Reference Range Comments PROTIME (BEAKER) (test mqun=757) 23.8 seconds 11.7-14.7 INR (BEAKER) (test tcez=632) 2.1 <=5.9 RECOMMENDED COUMADIN/WARFARIN INR THERAPY RANGESSTANDARD DOSE: 2.0 - 3.0 Includes: PROPHYLAXIS forvenous thrombosis, systemic embolization; TREATMENT for venous thrombosis and/or pulmonary embolus.HIGH RISK: Target INR is 2.5-3.5 for patients with mechanical heart valves.BLOOD [id number] 05:02:00 Test Item Value Reference Range Comments CULTURE (BEAKER) (test jyif=7699) No growth in 5 days BLOOD [id number] 05:02:00 Test Item Value Reference Range Comments CULTURE (BEAKER) (test ijya=6561) No growth in 5 days BODY FLUID CULTURE + GRAM [id number] 09:05:00 Test Item Value Reference Range Comments CULTURE (BEAKER) (test peie=4691) No growth GRAM STAIN RESULT (BEAKER) (test No White blood cells seen pxyx=0902) GRAM STAIN RESULT (BEAKER) (test No organisms seen avtj=67377) RAPID DRUG SCREEN, [id number] 23:13:00 Test Item Value Reference Range Comments BARBITURATE URINE (BEAKER) (test lvyi=372) Negative Negative BENZODIAZEPINE SCREEN URINE (BEAKER) (test Negative Negative xjfv=983) COCAINE (METAB.) SCREEN (BEAKER) (test egyw=3488) Negative Negative METHADONE SCREEN (BEAKER) (test esjy=1316) Negative Negative OPIATE SCREEN URINE (BEAKER) (test kize=302) Negative Negative CANNABINOID SCREEN URINE (BEAKER) (test gjtx=389) Negative Negative AMPH/METHAMPH SCREEN (BEAKER) (test odgq=2217) Negative Negative PHENCYCLIDINE SCREEN URINE (BEAKER) (test ehct=932) Negative Negative OXYCODONE SCREEN URINE (BEAKER) (test yiax=6464) Negative Negative DRUG CUTOFF CONC.Cocaine 300 ng/mL Cannabinoid 50 ng/mL Benzodiazepine 200 ng/mLBarbiturate 200 ng/ mLPhencyclidine 25 ng/mLOpiate 300 ng/mLMethadone 300 ng/mLAmphetamine/ 1000 ng/mL MethamphetamineOxycodone 300 ng/mLThis assay provides an unconfirmed qualitative test result for the clinical management of patients in emergency situations. Chain of custody not maintained. Some nhsa-bvx-ookfatl medications, as well as adulterants, may cause inaccurate results. Clinical correlation should be applied. A more comprehensive drug screen or confirmation of a detected drug may be performed upon request.MR, ABDOMEN, [id number] 13:52:00FINAL REPORT MRI of the abdomen with [...] MDRort Verified Date/Time: 09/05/2017 13:52:35 Reading Location: [facility] C013Y CT BodyReading Room CBC W/PLT COUNT & AUTO [id number] 05:46:00 Test Item Value Reference Range Comments WHITE BLOOD CELL COUNT (BEAKER) (test tkdz=921) 4.7 K/ L 3.5-10.5 RED BLOOD CELL COUNT (BEAKER) (test xisz=849) 2.49 M/ L 4.63-6.08 HEMOGLOBIN (BEAKER) (test hqbk=114) 7.9 GM/DL 13.7-17.5 HEMATOCRIT (BEAKER) (test jmpc=712) 22.6 % 40.1-51.0 MEAN CORPUSCULAR VOLUME (BEAKER) (test dvqk=275) 90.8 fL 79.0-92.2 MEAN CORPUSCULAR HEMOGLOBIN (BEAKER) (test 31.7 pg 25.7-32.2 cgbr=052) MEAN CORPUSCULAR HEMOGLOBIN CONC (BEAKER) (test 35.0 GM/DL 32.3-36.5 qgfy=233) RED CELL DISTRIBUTION WIDTH (BEAKER) (test 18.8 % 11.6-14.4 vvyy=275) PLATELET COUNT (BEAKER) (test hlxf=589) 60 K/CU MM 150-450 MEAN PLATELET VOLUME (BEAKER) (test hdoa=816) 9.2 fL 9.4-12.4 NUCLEATED RED BLOOD CELLS (BEAKER) (test 0 /100 WBC 0-0 lxxq=187) NEUTROPHILS RELATIVE PERCENT (BEAKER) (test 65 % ixux=883) LYMPHOCYTES RELATIVE PERCENT (BEAKER) (test 13 % gpfm=009) MONOCYTES RELATIVE PERCENT (BEAKER) (test 15 % bhnc=059) EOSINOPHILS RELATIVE PERCENT (BEAKER) (test 6 % gwgv=970) BASOPHILS RELATIVE PERCENT (BEAKER) (test 0 % tpzf=445) NEUTROPHILS ABSOLUTE COUNT (BEAKER) (test 3.05 K/ L 1.78-5.38 vgfa=459) LYMPHOCYTES ABSOLUTE COUNT (BEAKER) (test 0.62 K/ L 1.32-3.57 ajmk=802) MONOCYTES ABSOLUTE COUNT (BEAKER) (test zsfh=172) 0.68 K/ L 0.30-0.82 EOSINOPHILS ABSOLUTE COUNT (BEAKER) (test 0.28 K/ L 0.04-0.54 zuyf=823) BASOPHILS ABSOLUTE COUNT (BEAKER) (test azvu=586) 0.02 K/ L 0.01-0.08 IMMATURE GRANULOCYTES-RELATIVE PERCENT (BEAKER) 1 % 0-1 (test icbd=1660) BASIC METABOLIC [id number] 05:44:00 Test Item Value Reference Range Comments SODIUM (BEAKER) (test 127 meq/L 136-145 yrpp=469) POTASSIUM (BEAKER) (test 4.5 meq/L 3.5-5.1 hymp=086) CHLORIDE (BEAKER) (test 101 meq/L 98-107 ucsk=587) CO2 (BEAKER) (test 19 meq/L 22-29 iydv=638) BLOOD UREA NITROGEN 17 mg/dL 7-21 (BEAKER) (test zybm=266) CREATININE (BEAKER) (test 0.91 mg/dL 0.57-1.25 azxb=029) GLUCOSE RANDOM (BEAKER) 107 mg/dL 70-105 (test bxki=691) CALCIUM (BEAKER) (test 9.4 mg/dL 8.4-10.2 ufld=256) EGFR (BEAKER) (test 87 mL/min/1.73 sq m ESTIMATED GFR IS NOT skok=8716) ACCURATE CREATININE CLEARANCE IN PREDICTING GLOMERULAR FILTRATION RATE. ESTIMATED GFR IS NOT APPLICABLE FOR DIALYSIS PATIENTS. Specimen moderately ictericHEPATIC FUNCTION [id number] 05:44:00 Test Item Value Reference Range Comments TOTAL PROTEIN (BEAKER) (test tzlm=057) 5.6 gm/dL 6.0-8.3 ALBUMIN (BEAKER) (test liqn=5690) 3.3 g/dL 3.5-5.0 BILIRUBIN TOTAL (BEAKER) (test perx=353) 10.3 mg/dL 0.2-1.2 BILIRUBIN DIRECT (BEAKER) (test imrv=490) 6.8 mg/dL 0.1-0.5 ALKALINE PHOSPHATASE (BEAKER) (test bspi=493) 103 U/L 40-150 AST (SGOT) (BEAKER) (test tnkk=086) 17 U/L 5-34 ALT (SGPT) (BEAKER) (test yqay=976) 8 U/L 6-55 Specimen moderately ictericPT/[id number] 05:31:00 Test Item Value Reference Range Comments PROTIME (BEAKER) (test bacv=560) 25.6 seconds 11.7-14.7 INR (BEAKER) (test nwci=941) 2.3 <=5.9 PARTIAL THROMBOPLASTIN TIME (BEAKER) (test 51.6 seconds 22.5-36.0 rkjp=166) RECOMMENDED COUMADIN/WARFARIN INR THERAPY RANGESSTANDARD DOSE: 2.0 - 3.0 Includes: PROPHYLAXIS forvenous thrombosis, systemic embolization; TREATMENT for venous thrombosis and/or pulmonary embolus.HIGH RISK: Target INR is 2.5-3.5 for patients with mechanical heart valves.PROTHROMBIN TIME/[id number] 05:30: 00 Test Item Value Reference Range Comments PROTIME (BEAKER) (test hnmb=807) 25.6 seconds 11.7-14.7 INR (BEAKER) (test nufv=535) 2.3 <=5.9 RECOMMENDED COUMADIN/WARFARIN INR THERAPY RANGESSTANDARD DOSE: 2.0 - 3.0 Includes: PROPHYLAXIS forvenous thrombosis, systemic embolization; TREATMENT for venous thrombosis and/or pulmonary embolus.HIGH RISK: Target INR is 2.5-3.5 for patients with mechanical heart valves.BODY FLUID CELL COUNT WITH [id number] 19:30:00 Test Item Value Reference Range Comments APPEARANCE FLUID (BEAKER) (test qjbq=311) Slightly Hazy Clear COLOR FLUID (BEAKER) (test qtrf=463) Yellow Colorless, Straw RBC FLUID (BEAKER) (test fbfq=017) 100 /cu mm <=1 ADJUSTED WBC FLUID (BEAKER) (test fufd=8397) 36 /cu mm <=5 LINING CELLS (BEAKER) (test eosk=7041) 4 /cu mm <=1 NEUTROPHILS FLUID (BEAKER) (test ocvk=0243) 0 % LYMPHS FLUID (BEAKER) (test bouz=290) 20 % MONO/MACROPHAGE FLUID (BEAKER) (test 80 % fxfu=815) EOSINOPHILS FLUID (BEAKER) (test xwrj=526) 0 % BASO FLUID (BEAKER) (test idks=648) 0 % CONTAINER BODY FLUID (BEAKER) (test EDTA Tube ontz=9303) U/S, [id number] 16:21:00Reason for exam:->ascitesShould this be performed at the bedside?->NoFINAL REPORT PROCEDURE: Ultrasound-guided paracentesis. INDICATION: 52-year-old man with ascites. DESCRIPTION: After obtaining informed written consent, ultrasound scan of the abdomen identified ascites in the right lower quadrant. The overlying skin was prepped and draped in the usual, sterile fashion and local 1% lidocaine anesthesia was administered. A 5 [place] catheter was advanced into the peritoneal cavity and 13,200 cc of cloudy yellow fluid was removed. The catheter was removed without immediate complication. Samples were sent for analysis. IMPRESSION:Uncomplicated ultrasound-guided paracentesis with 13,200 cc fluid removed. Signed: Candice Mckeon Verified Date/Time: 2016 16:21:22 Reading Location: [address] Ultrasound Reading Room BASI METABOLIC [id number] 11:07:00 Test Item Value Reference Range Comments SODIUM (BEAKER) (test 127 meq/L 136-145 yvha=376) POTASSIUM (BEAKER) (test 4.1 meq/L 3.5-5.1 ajac=394) CHLORIDE (BEAKER) (test 101 meq/L 98-107 zkvb=343) CO2 (BEAKER) (test 23 meq/L 22-29 ojck=557) BLOOD UREA NITROGEN 17 mg/dL 7-21 (BEAKER) (test logo=464) CREATININE (BEAKER) (test 1.06 mg/dL 0.57-1.25 oseu=914) GLUCOSE RANDOM (BEAKER) 104 mg/dL 70-105 (test awjp=267) CALCIUM (BEAKER) (test 8.9 mg/dL 8.4-10.2 iooy=473) EGFR (BEAKER) (test 73 mL/min/1.73 sq m ESTIMATED GFR IS NOT nzjs=6965) ACCURATE CREATININE CLEARANCE IN PREDICTING GLOMERULAR FILTRATION RATE. ESTIMATED GFR IS NOT APPLICABLE FOR DIALYSIS PATIENTS. Specimen markedly ictericHEPATIC FUNCTION [id number] 11:07:00 Test Item Value Reference Range Comments TOTAL PROTEIN (BEAKER) (test byla=157) 5.4 gm/dL 6.0-8.3 ALBUMIN (BEAKER) (test nitb=6043) 2.8 g/dL 3.5-5.0 BILIRUBIN TOTAL (BEAKER) (test ujwo=838) 12.7 mg/dL 0.2-1.2 BILIRUBIN DIRECT (BEAKER) (test bzwu=616) 7.8 mg/dL 0.1-0.5 ALKALINE PHOSPHATASE (BEAKER) (test vszy=846) 90 U/L 40-150 AST (SGOT) (BEAKER) (test lria=485) 22 U/L 5-34 ALT (SGPT) (BEAKER) (test vegv=618) 11 U/L 6-55 Specimen markedly ictericPT/[id number] 11:02:00 Test Item Value Reference Range Comments PROTIME (BEAKER) (test pczx=221) 23.4 seconds 11.7-14.7 INR (BEAKER) (test dnzt=640) 2.1 <=5.9 PARTIAL THROMBOPLASTIN TIME (BEAKER) (test 48.7 seconds 22.5-36.0 dpwq=551) RECOMMENDED COUMADIN/WARFARIN INR THERAPY RANGESSTANDARD DOSE: 2.0 - 3.0 Includes: PROPHYLAXIS forvenous thrombosis, systemic embolization; TREATMENT for venous thrombosis and/or pulmonary embolus.HIGH RISK: Target INR is 2.5-3.5 for patients with mechanical heart valves.PROTHROMBIN [id number] 11:01: 00 Test Item Value Reference Range Comments PROTIME (BEAKER) (test yxya=985) 23.4 seconds 11.7-14.7 INR (BEAKER) (test xnkt=967) 2.1 <=5.9 RECOMMENDED COUMADIN/WARFARIN INR THERAPY RANGESSTANDARD DOSE: 2.0 - 3.0 Includes: PROPHYLAXIS forvenous thrombosis, systemic embolization; TREATMENT for venous thrombosis and/or pulmonary embolus.HIGH RISK: Target INR is 2.5-3.5 for patients with mechanical heart valves.CBC W/PLT COUNT & AUTO [id number] 10:56:00 Test Item Value Reference Range Comments WHITE BLOOD CELL COUNT (BEAKER) (test ztzo=258) 4.4 K/ L 3.5-10.5 RED BLOOD CELL COUNT (BEAKER) (test gzyn=169) 2.48 M/ L 4.63-6.08 HEMOGLOBIN (BEAKER) (test rjwe=660) 7.8 GM/DL 13.7-17.5 HEMATOCRIT (BEAKER) (test kwik=911) 22.7 % 40.1-51.0 MEAN CORPUSCULAR VOLUME (BEAKER) (test bdio=610) 91.5 fL 79.0-92.2 MEAN CORPUSCULAR HEMOGLOBIN (BEAKER) (test 31.5 pg 25.7-32.2 rimt=371) MEAN CORPUSCULAR HEMOGLOBIN CONC (BEAKER) (test 34.4 GM/DL 32.3-36.5 qioi=088) RED CELL DISTRIBUTION WIDTH (BEAKER) (test 18.6 % 11.6-14.4 bdnb=933) PLATELET COUNT (BEAKER) (test yjci=362) 60 K/CU MM 150-450 MEAN PLATELET VOLUME (BEAKER) (test dkkx=353) 8.8 fL 9.4-12.4 NUCLEATED RED BLOOD CELLS (BEAKER) (test 0 /100 WBC 0-0 flds=677) NEUTROPHILS RELATIVE PERCENT (BEAKER) (test 61 % yzlu=536) LYMPHOCYTES RELATIVE PERCENT (BEAKER) (test 9 % kygk=984) MONOCYTES RELATIVE PERCENT (BEAKER) (test 21 % odqi=443) EOSINOPHILS RELATIVE PERCENT (BEAKER) (test 8 % ojfe=366) BASOPHILS RELATIVE PERCENT (BEAKER) (test 1 % bizb=426) NEUTROPHILS ABSOLUTE COUNT (BEAKER) (test 2.68 K/ L 1.78-5.38 othb=070) LYMPHOCYTES ABSOLUTE COUNT (BEAKER) (test 0.38 K/ L 1.32-3.57 kvdu=597) MONOCYTES ABSOLUTE COUNT (BEAKER) (test jakh=243) 0.94 K/ L 0.30-0.82 EOSINOPHILS ABSOLUTE COUNT (BEAKER) (test 0.33 K/ L 0.04-0.54 oswo=777) BASOPHILS ABSOLUTE COUNT (BEAKER) (test xons=549) 0.02 K/ L 0.01-0.08 IMMATURE GRANULOCYTES-RELATIVE PERCENT (BEAKER) 1 % 0-1 (test kual=3844) URINALYSIS W/ [id number] 06:18:00 Test Item Value Reference Range Comments COLOR (BEAKER) (test vdmn=492) Dark Yellow CLARITY (BEAKER) (test qroo=357) Clear SPECIFIC GRAVITY UA (BEAKER) (test qlyc=505) 1.008 1.001-1.035 PH UA (BEAKER) (test ynfc=049) 6.0 5.0-8.0 PROTEIN UA (BEAKER) (test avjs=899) Negative Negative GLUCOSE UA (BEAKER) (test ffdn=033) Negative Negative KETONES UA (BEAKER) (test swdt=747) Negative Negative BILIRUBIN UA (BEAKER) (test gpya=657) Positive Negative BLOOD UA (BEAKER) (test mxmj=845) Moderate Negative NITRITE UA (BEAKER) (test iyee=707) Negative Negative LEUKOCYTE ESTERASE UA (BEAKER) (test vlot=986) Negative Negative UROBILINOGEN UA (BEAKER) (test nlem=380) 0.2 mg/dL 0.2-1.0 RBC UA (BEAKER) (test ehdc=604) 80 /HPF WBC UA (BEAKER) (test xxxt=266) 10 /HPF HYALINE CASTS (BEAKER) (test obhj=261) 5 /LPF AMORPHOUS CRYSTALS (BEAKER) (test cvxu=5315) Rare SOURCE(BEAKER) (test hcee=6618) CBC W/PLT COUNT & AUTO [id number] 00:00:00 Test Item Value Reference Range Comments WHITE BLOOD CELL COUNT (BEAKER) (test jxao=081) 3.7 K/ L 3.5-10.5 RED BLOOD CELL COUNT (BEAKER) (test tqbt=839) 2.20 M/ L 4.63-6.08 HEMOGLOBIN (BEAKER) (test toyk=344) 7.0 GM/DL 13.7-17.5 HEMATOCRIT (BEAKER) (test tcuf=097) 20.2 % 40.1-51.0 MEAN CORPUSCULAR VOLUME (BEAKER) (test nrgp=273) 91.8 fL 79.0-92.2 MEAN CORPUSCULAR HEMOGLOBIN (BEAKER) (test 31.8 pg 25.7-32.2 bhsz=153) MEAN CORPUSCULAR HEMOGLOBIN CONC (BEAKER) (test 34.7 GM/DL 32.3-36.5 oquu=510) RED CELL DISTRIBUTION WIDTH (BEAKER) (test 19.3 % 11.6-14.4 otyx=795) PLATELET COUNT (BEAKER) (test oalk=209) 63 K/CU MM 150-450 MEAN PLATELET VOLUME (BEAKER) (test snlc=485) 9.1 fL 9.4-12.4 NUCLEATED RED BLOOD CELLS (BEAKER) (test 0 /100 WBC 0-0 wbda=353) NEUTROPHILS RELATIVE PERCENT (BEAKER) (test 62 % ipbk=380) LYMPHOCYTES RELATIVE PERCENT (BEAKER) (test 11 % oxwz=555) MONOCYTES RELATIVE PERCENT (BEAKER) (test 19 % eijb=449) EOSINOPHILS RELATIVE PERCENT (BEAKER) (test 7 % bknw=337) BASOPHILS RELATIVE PERCENT (BEAKER) (test 1 % vxqk=929) NEUTROPHILS ABSOLUTE COUNT (BEAKER) (test 2.29 K/ L 1.78-5.38 iexj=258) LYMPHOCYTES ABSOLUTE COUNT (BEAKER) (test 0.39 K/ L 1.32-3.57 nkxl=757) MONOCYTES ABSOLUTE COUNT (BEAKER) (test izck=853) 0.71 K/ L 0.30-0.82 EOSINOPHILS ABSOLUTE COUNT (BEAKER) (test 0.27 K/ L 0.04-0.54 hzwz=746) BASOPHILS ABSOLUTE COUNT (BEAKER) (test trnq=368) 0.02 K/ L 0.01-0.08 IMMATURE GRANULOCYTES-RELATIVE PERCENT (BEAKER) 1 % 0-1 (test gwhi=5357) PROTHROMBIN [id number] 22:52:00 Test Item Value Reference Range Comments PROTIME (BEAKER) (test ddxm=788) 25.6 seconds 11.7-14.7 INR (BEAKER) (test jlip=229) 2.3 <=5.9 RECOMMENDED COUMADIN/WARFARIN INR THERAPY RANGESSTANDARD DOSE: 2.0 - 3.0 Includes: PROPHYLAXIS forvenous thrombosis, systemic embolization; TREATMENT for venous thrombosis and/or pulmonary embolus.HIGH RISK: Target INR is 2.5-3.5 for patients with mechanical heart valves.[id number] 22:52:00 Test Item Value Reference Range Comments MAGNESIUM (BEAKER) (test iksr=136) 1.3 mg/dL 1.6-2.6 BASIC METABOLIC [id number] 22:52:00 Test Item Value Reference Range Comments SODIUM (BEAKER) (test 124 meq/L 136-145 zlhv=209) POTASSIUM (BEAKER) (test 4.1 meq/L 3.5-5.1 pjsm=844) CHLORIDE (BEAKER) (test 99 meq/L 98-107 wbbb=020) CO2 (BEAKER) (test 18 meq/L 22-29 xzml=106) BLOOD UREA NITROGEN 16 mg/dL 7-21 (BEAKER) (test hesz=510) CREATININE (BEAKER) (test 0.97 mg/dL 0.57-1.25 dumu=587) GLUCOSE RANDOM (BEAKER) 99 mg/dL 70-105 (test agwi=113) CALCIUM (BEAKER) (test 8.7 mg/dL 8.4-10.2 ybaa=148) EGFR (BEAKER) (test 81 mL/min/1.73 sq m ESTIMATED GFR IS NOT gggg=1129) ACCURATE CREATININE CLEARANCE IN PREDICTING GLOMERULAR FILTRATION RATE. ESTIMATED GFR IS NOT APPLICABLE FOR DIALYSIS PATIENTS. Specimen markedly ictericHEPATIC FUNCTION [id number] 22:52:00 Test Item Value Reference Range Comments TOTAL PROTEIN (BEAKER) (test jhcb=920) 5.3 gm/dL 6.0-8.3 ALBUMIN (BEAKER) (test jcmo=8568) 2.8 g/dL 3.5-5.0 BILIRUBIN TOTAL (BEAKER) (test vvbj=109) 12.7 mg/dL 0.2-1.2 BILIRUBIN DIRECT (BEAKER) (test uqud=610) 7.6 mg/dL 0.1-0.5 ALKALINE PHOSPHATASE (BEAKER) (test rwjx=947) 93 U/L 40-150 AST (SGOT) (BEAKER) (test dbos=393) 21 U/L 5-34 ALT (SGPT) (BEAKER) (test ctqy=061) 9 U/L 6-55 Specimen markedly ictericALPHA FETOPROTEIN (AFP), TUMOR [id number] 16:39: 00 Test Item Value Reference Range Comments ALPHA-FETOPROTEIN (BEAKER) (test fzwq=7805) 2.5 ng/mL <10.0 BASIC METABOLIC [id number] 15:53:00 Test Item Value Reference Range Comments SODIUM (BEAKER) (test 126 meq/L 136-145 onvg=852) POTASSIUM (BEAKER) (test 5.1 meq/L 3.5-5.1 zwqv=256) CHLORIDE (BEAKER) (test 101 meq/L 98-107 sqbp=718) CO2 (BEAKER) (test 19 meq/L 22-29 dlki=009) BLOOD UREA NITROGEN 14 mg/dL 7-21 (BEAKER) (test bstw=625) CREATININE (BEAKER) (test 1.01 mg/dL 0.57-1.25 wjpe=132) GLUCOSE RANDOM (BEAKER) 104 mg/dL 70-105 (test jckv=287) CALCIUM (BEAKER) (test 9.0 mg/dL 8.4-10.2 kotp=308) EGFR (BEAKER) (test 78 mL/min/1.73 sq m ESTIMATED GFR IS NOT igoo=5379) ACCURATE CREATININE CLEARANCE IN PREDICTING GLOMERULAR FILTRATION RATE. ESTIMATED GFR IS NOT APPLICABLE FOR DIALYSIS PATIENTS. Specimen moderately ictericHEPATIC FUNCTION [id number] 15:53:00 Test Item Value Reference Range Comments TOTAL PROTEIN (BEAKER) (test dchc=987) 6.1 gm/dL 6.0-8.3 ALBUMIN (BEAKER) (test wpso=8263) 2.6 g/dL 3.5-5.0 BILIRUBIN TOTAL (BEAKER) (test clpm=506) 10.4 mg/dL 0.2-1.2 BILIRUBIN DIRECT (BEAKER) (test tbic=300) 7.5 mg/dL 0.1-0.5 ALKALINE PHOSPHATASE (BEAKER) (test axvc=476) 124 U/L 40-150 AST (SGOT) (BEAKER) (test iodr=931) 29 U/L 5-34 ALT (SGPT) (BEAKER) (test yzut=978) 12 U/L 6-55 Specimen moderately ictericGAMMA GLUTAMYL TRANSFERASE (GGT)[id number] 15:53:00 Test Item Value Reference Range Comments GAMMA GLUTAMYL TRANSFERASE (BEAKER) (test sxab=180) 17 U/L 9-64 Specimen moderately ictericPROTHROMBIN [id number] 15:40:00 Test Item Value Reference Range Comments PROTIME (BEAKER) (test qvhc=335) 22.6 seconds 11.7-14.7 INR (BEAKER) (test jpuj=813) 2.0 <=5.9 RECOMMENDED COUMADIN/WARFARIN INR THERAPY RANGESSTANDARD DOSE: 2.0 - 3.0 Includes: PROPHYLAXIS forvenous thrombosis, systemic embolization; TREATMENT for venous thrombosis and/or pulmonary embolus.HIGH RISK: Target INR is 2.5-3.5 for patients with mechanical heart valves.CBC W/PLT COUNT & AUTO [id number] 15:38:00 Test Item Value Reference Range Comments WHITE BLOOD CELL COUNT (BEAKER) (test luti=531) 7.3 K/ L 3.5-10.5 RED BLOOD CELL COUNT (BEAKER) (test ikjq=009) 2.78 M/ L 4.63-6.08 HEMOGLOBIN (BEAKER) (test qfus=816) 9.1 GM/DL 13.7-17.5 HEMATOCRIT (BEAKER) (test gokf=362) 27.3 % 40.1-51.0 MEAN CORPUSCULAR VOLUME (BEAKER) (test pxkh=719) 98.2 fL 79.0-92.2 MEAN CORPUSCULAR HEMOGLOBIN (BEAKER) (test 32.7 pg 25.7-32.2 kwkr=031) MEAN CORPUSCULAR HEMOGLOBIN CONC (BEAKER) (test 33.3 GM/DL 32.3-36.5 qefs=370) RED CELL DISTRIBUTION WIDTH (BEAKER) (test 16.4 % 11.6-14.4 nmse=707) PLATELET COUNT (BEAKER) (test zjrk=343) 71 K/CU MM 150-450 MEAN PLATELET VOLUME (BEAKER) (test zwbw=287) 9.1 fL 9.4-12.4 NUCLEATED RED BLOOD CELLS (BEAKER) (test 0 /100 WBC 0-0 dsfr=688) NEUTROPHILS RELATIVE PERCENT (BEAKER) (test 71 % ielz=718) LYMPHOCYTES RELATIVE PERCENT (BEAKER) (test 8 % qcba=838) MONOCYTES RELATIVE PERCENT (BEAKER) (test 15 % cnup=132) EOSINOPHILS RELATIVE PERCENT (BEAKER) (test 5 % sxxt=624) BASOPHILS RELATIVE PERCENT (BEAKER) (test 0 % jyuy=407) NEUTROPHILS ABSOLUTE COUNT (BEAKER) (test 5.13 K/ L 1.78-5.38 uqcf=521) LYMPHOCYTES ABSOLUTE COUNT (BEAKER) (test 0.59 K/ L 1.32-3.57 btez=499) MONOCYTES ABSOLUTE COUNT (BEAKER) (test xrdf=705) 1.06 K/ L 0.30-0.82 EOSINOPHILS ABSOLUTE COUNT (BEAKER) (test 0.33 K/ L 0.04-0.54 bkkz=902) BASOPHILS ABSOLUTE COUNT (BEAKER) (test utrx=566) 0.03 K/ L 0.01-0.08 IMMATURE GRANULOCYTES-RELATIVE PERCENT (BEAKER) 2 % 0-1 (test cqqh=9416) FUNGUS CULTURE + [id number] 07:22:00 Test Item Value Reference Range Comments CULTURE (BEAKER) (test No fungus isolated in 28 days xgcw=7417) FUNGUS SMEAR (BEAKER) (test No fungi seen xgzl=5208) HISTOPLASMA ANTIGEN, [id number] 08:01:00 Test Item Value Reference Range Comments SCAN RESULT (test ohen=[id number]) TISSUE [id number] 10:58:00 Test Item Value Reference Range Comments LAB AP CPT CODE (BEAKER) (test iisf=3896) 79519 BLOOD [id number] 16:15:00 Test Item Value Reference Range Comments CULTURE (BEAKER) (test nooh=6853) No growth in 5 days BLOOD [id number] 16:15:00 Test Item Value Reference Range Comments CULTURE (BEAKER) (test nmxm=7090) No growth in 5 days [id number] 06:54:00 Test Item Value Reference Range Comments PHOSPHORUS (BEAKER) (test cdfl=057) 3.3 mg/dL 2.3-4.7 [id number] 06:54:00 Test Item Value Reference Range Comments MAGNESIUM (BEAKER) (test ttrl=797) 1.2 mg/dL 1.6-2.6 BASIC METABOLIC [id number] 06:54:00 Test Item Value Reference Range Comments SODIUM (BEAKER) (test 133 meq/L 136-145 ukyy=020) POTASSIUM (BEAKER) (test 3.6 meq/L 3.5-5.1 ztek=453) CHLORIDE (BEAKER) (test 108 meq/L 98-107 ftcu=393) CO2 (BEAKER) (test 17 meq/L 22-29 hfqy=719) BLOOD UREA NITROGEN 13 mg/dL 7-21 (BEAKER) (test qhey=384) CREATININE (BEAKER) (test 1.16 mg/dL 0.57-1.25 mokt=354) GLUCOSE RANDOM (BEAKER) 82 mg/dL 70-105 (test rfix=589) CALCIUM (BEAKER) (test 8.0 mg/dL 8.4-10.2 zeho=257) EGFR (BEAKER) (test 66 mL/min/1.73 sq m ESTIMATED GFR IS NOT srbq=1240) ACCURATE CREATININE CLEARANCE IN PREDICTING GLOMERULAR FILTRATION RATE. ESTIMATED GFR IS NOT APPLICABLE FOR DIALYSIS PATIENTS. Specimen moderately ictericHEPATIC FUNCTION [id number] 06:54:00 Test Item Value Reference Range Comments TOTAL PROTEIN (BEAKER) (test jkoj=453) 5.7 gm/dL 6.0-8.3 ALBUMIN (BEAKER) (test ynml=6635) 3.1 g/dL 3.5-5.0 BILIRUBIN TOTAL (BEAKER) (test wvnu=150) 5.2 mg/dL 0.2-1.2 BILIRUBIN DIRECT (BEAKER) (test sruw=796) 2.6 mg/dL 0.1-0.5 ALKALINE PHOSPHATASE (BEAKER) (test qwgz=286) 55 U/L 40-150 AST (SGOT) (BEAKER) (test dpfw=924) 32 U/L 5-34 ALT (SGPT) (BEAKER) (test sbmf=735) 9 U/L 6-55 Specimen moderately ictericCALCIUM, [id number] 06:30:00 Test Item Value Reference Range Comments CALCIUM IONIZED (BEAKER) (test hhew=575) 1.00 mmol/L 1.12-1.27 PH, BLOOD (BEAKER) (test soik=1868) 7.52 CBC W/PLT COUNT & AUTO [id number] 06:17:00 Test Item Value Reference Range Comments WHITE BLOOD CELL COUNT (BEAKER) (test hhcb=725) 4.7 K/ L 4.0-10.0 RED BLOOD CELL COUNT (BEAKER) (test uujv=016) 2.05 M/ L 4.20-5.80 HEMOGLOBIN (BEAKER) (test vrbm=395) 7.1 GM/DL 13.0-16.8 HEMATOCRIT (BEAKER) (test ezkp=869) 21.1 % 40.0-50.0 MEAN CORPUSCULAR VOLUME (BEAKER) (test ovtm=161) 103.0 fL 82.0-98.0 MEAN CORPUSCULAR HEMOGLOBIN (BEAKER) (test 34.8 pg 27.0-33.0 rlmg=542) MEAN CORPUSCULAR HEMOGLOBIN CONC (BEAKER) (test 33.8 GM/DL 32.0-36.0 vexz=893) RED CELL DISTRIBUTION WIDTH (BEAKER) (test 13.9 % 10.3-14.2 apwd=216) PLATELET COUNT (BEAKER) (test nazd=707) 71 K/CU MM 150-430 MEAN PLATELET VOLUME (BEAKER) (test occq=268) 6.6 fL 6.5-10.5 NUCLEATED RED BLOOD CELLS (BEAKER) (test 0 /100 WBC 0-0 ncom=276) NEUTROPHILS RELATIVE PERCENT (BEAKER) (test 68 % qfkv=010) LYMPHOCYTES RELATIVE PERCENT (BEAKER) (test 16 % hrrq=048) MONOCYTES RELATIVE PERCENT (BEAKER) (test 12 % sqvy=557) EOSINOPHILS RELATIVE PERCENT (BEAKER) (test 4 % nrab=210) BASOPHILS RELATIVE PERCENT (BEAKER) (test 1 % afqn=712) NEUTROPHILS ABSOLUTE COUNT (BEAKER) (test 3.21 K/ L 1.80-8.00 ayme=594) LYMPHOCYTES ABSOLUTE COUNT (BEAKER) (test 0.75 K/ L 1.48-4.50 btgb=272) MONOCYTES ABSOLUTE COUNT (BEAKER) (test yoko=518) 0.57 K/ L 0.00-1.30 EOSINOPHILS ABSOLUTE COUNT (BEAKER) (test 0.19 K/ L 0.00-0.50 ulvp=580) BASOPHILS ABSOLUTE COUNT (BEAKER) (test tytc=150) 0.03 K/ L 0.00-0.20 0.00PROTHROMBIN [id number] 05:56:00 Test Item Value Reference Range Comments PROTIME (BEAKER) (test kknj=006) 26.4 seconds 11.7-14.7 INR (BEAKER) (test jxjf=553) 2.4 <=5.9 RECOMMENDED COUMADIN/WARFARIN INR THERAPY RANGESSTANDARD DOSE: 2.0 - 3.0 Includes: PROPHYLAXIS forvenous thrombosis, systemic embolization; TREATMENT for venous thrombosis and/or pulmonary embolus.HIGH RISK: Target INR is 2.5-3.5 for patients with mechanical heart valves.BASIC METABOLIC [id number] 04:44: 00 Test Item Value Reference Range Comments SODIUM (BEAKER) (test 134 meq/L 136-145 qfzo=556) POTASSIUM (BEAKER) (test 3.6 meq/L 3.5-5.1 ahxw=875) CHLORIDE (BEAKER) (test 108 meq/L 98-107 fluo=546) CO2 (BEAKER) (test 19 meq/L 22-29 unmx=657) BLOOD UREA NITROGEN 12 mg/dL 7-21 (BEAKER) (test lnhg=103) CREATININE (BEAKER) (test 1.32 mg/dL 0.57-1.25 hbyv=001) GLUCOSE RANDOM (BEAKER) 82 mg/dL 70-105 (test uzzh=236) CALCIUM (BEAKER) (test 7.9 mg/dL 8.4-10.2 rwzg=152) EGFR (BEAKER) (test 57 mL/min/1.73 sq m ESTIMATED GFR IS NOT ymqr=0294) ACCURATE CREATININE CLEARANCE IN PREDICTING GLOMERULAR FILTRATION RATE. ESTIMATED GFR IS NOT APPLICABLE FOR DIALYSIS PATIENTS. Specimen moderately ictericHEPATIC FUNCTION [id number] 04:42:00 Test Item Value Reference Range Comments TOTAL PROTEIN (BEAKER) (test vair=210) 5.8 gm/dL 6.0-8.3 ALBUMIN (BEAKER) (test nbwo=4072) 3.1 g/dL 3.5-5.0 BILIRUBIN TOTAL (BEAKER) (test bpzu=505) 5.1 mg/dL 0.2-1.2 BILIRUBIN DIRECT (BEAKER) (test acmf=721) 2.7 mg/dL 0.1-0.5 ALKALINE PHOSPHATASE (BEAKER) (test hdeh=091) 51 U/L 40-150 AST (SGOT) (BEAKER) (test vfih=072) 27 U/L 5-34 ALT (SGPT) (BEAKER) (test mkuf=527) 7 U/L 6-55 Specimen moderately ictericCBC W/PLT COUNT & AUTO [id number] 04: 35:00 Test Item Value Reference Range Comments WHITE BLOOD CELL COUNT (BEAKER) (test bgec=894) 4.6 K/ L 4.0-10.0 RED BLOOD CELL COUNT (BEAKER) (test kwnd=458) 2.06 M/ L 4.20-5.80 HEMOGLOBIN (BEAKER) (test lqqe=741) 7.2 GM/DL 13.0-16.8 HEMATOCRIT (BEAKER) (test vkvf=477) 21.5 % 40.0-50.0 MEAN CORPUSCULAR VOLUME (BEAKER) (test qkrh=062) 104.0 fL 82.0-98.0 MEAN CORPUSCULAR HEMOGLOBIN (BEAKER) (test 35.0 pg 27.0-33.0 oiei=007) MEAN CORPUSCULAR HEMOGLOBIN CONC (BEAKER) (test 33.6 GM/DL 32.0-36.0 tmak=659) RED CELL DISTRIBUTION WIDTH (BEAKER) (test 13.4 % 10.3-14.2 mlbk=996) PLATELET COUNT (BEAKER) (test fxkb=473) 76 K/CU MM 150-430 MEAN PLATELET VOLUME (BEAKER) (test ejbt=882) 6.5 fL 6.5-10.5 NUCLEATED RED BLOOD CELLS (BEAKER) (test 0 /100 WBC 0-0 dbxz=843) NEUTROPHILS RELATIVE PERCENT (BEAKER) (test 64 % jfgo=967) LYMPHOCYTES RELATIVE PERCENT (BEAKER) (test 16 % oijh=923) MONOCYTES RELATIVE PERCENT (BEAKER) (test 16 % qwcy=783) EOSINOPHILS RELATIVE PERCENT (BEAKER) (test 4 % zdkc=260) BASOPHILS RELATIVE PERCENT (BEAKER) (test 1 % lfzb=321) NEUTROPHILS ABSOLUTE COUNT (BEAKER) (test 2.89 K/ L 1.80-8.00 rjlg=126) LYMPHOCYTES ABSOLUTE COUNT (BEAKER) (test 0.72 K/ L 1.48-4.50 hdjh=324) MONOCYTES ABSOLUTE COUNT (BEAKER) (test yqgp=792) 0.71 K/ L 0.00-1.30 EOSINOPHILS ABSOLUTE COUNT (BEAKER) (test 0.20 K/ L 0.00-0.50 uzne=490) BASOPHILS ABSOLUTE COUNT (BEAKER) (test cety=668) 0.03 K/ L 0.00-0.20 0.00PROTHROMBIN [id number] 04:33:00 Test Item Value Reference Range Comments PROTIME (BEAKER) (test ydlr=352) 30.2 seconds 11.7-14.7 INR (BEAKER) (test uxre=762) 2.9 <=5.9 RECOMMENDED COUMADIN/WARFARIN INR THERAPY RANGESSTANDARD DOSE: 2.0 - 3.0 Includes: PROPHYLAXIS forvenous thrombosis, systemic embolization; TREATMENT for venous thrombosis and/or pulmonary embolus.HIGH RISK: Target INR is 2.5-3.5 for patients with mechanical heart valves.VANCOMYCIN LEVEL, [id number] 17: 04:00 Test Item Value Reference Range Comments VANCOMYCIN TROUGH (BEAKER) (test clnm=669) 12.2 ug/mL 10.0-20.0 URINE [id number] 14:25:00 Test Item Value Reference Range Comments CULTURE (BEAKER) (test wzax=0106) No growth TSH/FREE T4 IF [id number] 14:22:00 Test Item Value Reference Range Comments THYROID STIMULATING HORMONE (BEAKER) (test 3.53 uIU/mL 0.35-4.94 dhkw=253) URINE [id number] 11:43:00 Test Item Value Reference Range Comments CULTURE (BEAKER) (test hvqm=8679) No growth CBC W/PLT COUNT & AUTO [id number] 07:55:00 Test Item Value Reference Range Comments WHITE BLOOD CELL COUNT (BEAKER) (test ldft=784) 4.5 K/ L 4.0-10.0 RED BLOOD CELL COUNT (BEAKER) (test ukhd=970) 2.06 M/ L 4.20-5.80 HEMOGLOBIN (BEAKER) (test hbdt=383) 7.1 GM/DL 13.0-16.8 HEMATOCRIT (BEAKER) (test apgc=792) 21.5 % 40.0-50.0 MEAN CORPUSCULAR VOLUME (BEAKER) (test vscx=185) 104.0 fL 82.0-98.0 MEAN CORPUSCULAR HEMOGLOBIN (BEAKER) (test 34.5 pg 27.0-33.0 rkhn=675) MEAN CORPUSCULAR HEMOGLOBIN CONC (BEAKER) (test 33.1 GM/DL 32.0-36.0 qgpn=099) RED CELL DISTRIBUTION WIDTH (BEAKER) (test 13.4 % 10.3-14.2 twrt=266) PLATELET COUNT (BEAKER) (test btrt=810) 79 K/CU MM 150-430 MEAN PLATELET VOLUME (BEAKER) (test dhag=500) 6.8 fL 6.5-10.5 NUCLEATED RED BLOOD CELLS (BEAKER) (test 0 /100 WBC 0-0 ctlb=526) NEUTROPHILS RELATIVE PERCENT (BEAKER) (test 64 % hvvw=330) LYMPHOCYTES RELATIVE PERCENT (BEAKER) (test 16 % uqmj=040) MONOCYTES RELATIVE PERCENT (BEAKER) (test 15 % havp=856) EOSINOPHILS RELATIVE PERCENT (BEAKER) (test 5 % zfxf=239) BASOPHILS RELATIVE PERCENT (BEAKER) (test 0 % ajsv=297) NEUTROPHILS ABSOLUTE COUNT (BEAKER) (test 2.88 K/ L 1.80-8.00 kgls=219) LYMPHOCYTES ABSOLUTE COUNT (BEAKER) (test 0.73 K/ L 1.48-4.50 mvwf=164) MONOCYTES ABSOLUTE COUNT (BEAKER) (test odyf=740) 0.68 K/ L 0.00-1.30 EOSINOPHILS ABSOLUTE COUNT (BEAKER) (test 0.23 K/ L 0.00-0.50 yjaq=366) BASOPHILS ABSOLUTE COUNT (BEAKER) (test klah=840) 0.02 K/ L 0.00-0.20 0.00BASI METABOLIC [id number] 05:58:00 Test Item Value Reference Range Comments SODIUM (BEAKER) (test 137 meq/L 136-145 lrto=714) POTASSIUM (BEAKER) (test 3.7 meq/L 3.5-5.1 gcpb=423) CHLORIDE (BEAKER) (test 110 meq/L 98-107 tmjv=397) CO2 (BEAKER) (test 19 meq/L 22-29 ugbi=561) BLOOD UREA NITROGEN 12 mg/dL 7-21 (BEAKER) (test hoyf=038) CREATININE (BEAKER) (test 1.29 mg/dL 0.57-1.25 uier=739) GLUCOSE RANDOM (BEAKER) 80 mg/dL 70-105 (test stzi=391) CALCIUM (BEAKER) (test 8.1 mg/dL 8.4-10.2 jnoh=537) EGFR (BEAKER) (test 59 mL/min/1.73 sq m ESTIMATED GFR IS NOT zflg=0654) ACCURATE CREATININE CLEARANCE IN PREDICTING GLOMERULAR FILTRATION RATE. ESTIMATED GFR IS NOT APPLICABLE FOR DIALYSIS PATIENTS. Specimen moderately ictericHEPATIC FUNCTION [id number] 05:58:00 Test Item Value Reference Range Comments TOTAL PROTEIN (BEAKER) (test ovbn=001) 5.9 gm/dL 6.0-8.3 ALBUMIN (BEAKER) (test xdur=8502) 3.4 g/dL 3.5-5.0 BILIRUBIN TOTAL (BEAKER) (test wfws=068) 5.6 mg/dL 0.2-1.2 BILIRUBIN DIRECT (BEAKER) (test txhh=137) 2.6 mg/dL 0.1-0.5 ALKALINE PHOSPHATASE (BEAKER) (test czoh=658) 50 U/L 40-150 AST (SGOT) (BEAKER) (test lial=257) 30 U/L 5-34 ALT (SGPT) (BEAKER) (test whud=925) 9 U/L 6-55 Specimen moderately ictericPROTHROMBIN [id number] 05:31:00 Test Item Value Reference Range Comments PROTIME (BEAKER) (test xidw=198) 29.0 seconds 11.7-14.7 INR (BEAKER) (test xczi=341) 2.7 <=5.9 RECOMMENDED COUMADIN/WARFARIN INR THERAPY RANGESSTANDARD DOSE: 2.0 - 3.0 Includes: PROPHYLAXIS forvenous thrombosis, systemic embolization; TREATMENT for venous thrombosis and/or pulmonary embolus.HIGH RISK: Target INR is 2.5-3.5 for patients with mechanical heart valves.ANAEROBIC [id number] 05:15:00 Test Item Value Reference Range Comments CULTURE (BEAKER) (test uiyf=3566) No anaerobes isolated BLOOD [id number] 00:00:00 Test Item Value Reference Range Comments CULTURE (BEAKER) (test dwlv=3543) No growth in 5 days BLOOD [id number] 00:00:00 Test Item Value Reference Range Comments CULTURE (BEAKER) (test zaqd=8516) No growth in 5 days URINALYSIS W/ REFLEX URINE [id number] 08:28:00 Test Item Value Reference Range Comments COLOR (BEAKER) (test pnuu=424) Yellow CLARITY (BEAKER) (test ultp=383) Clear SPECIFIC GRAVITY UA (BEAKER) (test jtco=204) 1.006 1.001-1.035 PH UA (BEAKER) (test bwae=204) 6.5 5.0-8.0 PROTEIN UA (BEAKER) (test pajl=677) Negative Negative GLUCOSE UA (BEAKER) (test mzgi=539) Negative Negative KETONES UA (BEAKER) (test ddny=136) Negative Negative BILIRUBIN UA (BEAKER) (test zjjb=234) Negative Negative BLOOD UA (BEAKER) (test taep=889) Negative Negative NITRITE UA (BEAKER) (test ywzx=900) Negative Negative LEUKOCYTE ESTERASE UA (BEAKER) (test bvnk=464) Small Negative UROBILINOGEN UA (BEAKER) (test lgtf=933) 0.2 mg/dL 0.2-1.0 RBC UA (BEAKER) (test euks=285) 1 /HPF WBC UA (BEAKER) (test ddcu=197) 6 /HPF BACTERIA (BEAKER) (test yrxn=073) Rare SOURCE(BEAKER) (test jemq=0447) CBC W/PLT COUNT & AUTO [id number] 07:21:00 Test Item Value Reference Range Comments WHITE BLOOD CELL COUNT (BEAKER) (test dbvs=886) 5.9 K/ L 4.0-10.0 RED BLOOD CELL COUNT (BEAKER) (test wfgp=909) 2.12 M/ L 4.20-5.80 HEMOGLOBIN (BEAKER) (test dbzc=521) 7.3 GM/DL 13.0-16.8 HEMATOCRIT (BEAKER) (test hrvp=893) 22.2 % 40.0-50.0 MEAN CORPUSCULAR VOLUME (BEAKER) (test beqp=083) 105.0 fL 82.0-98.0 MEAN CORPUSCULAR HEMOGLOBIN (BEAKER) (test 34.2 pg 27.0-33.0 mhqk=010) MEAN CORPUSCULAR HEMOGLOBIN CONC (BEAKER) (test 32.7 GM/DL 32.0-36.0 hfak=581) RED CELL DISTRIBUTION WIDTH (BEAKER) (test 13.1 % 10.3-14.2 xgko=420) PLATELET COUNT (BEAKER) (test rrqt=608) 80 K/CU MM 150-430 MEAN PLATELET VOLUME (BEAKER) (test mnsv=373) 6.5 fL 6.5-10.5 NUCLEATED RED BLOOD CELLS (BEAKER) (test 0 /100 WBC 0-0 zphn=298) NEUTROPHILS RELATIVE PERCENT (BEAKER) (test 67 % ptdb=425) LYMPHOCYTES RELATIVE PERCENT (BEAKER) (test 14 % fsmo=571) MONOCYTES RELATIVE PERCENT (BEAKER) (test 14 % zltr=409) EOSINOPHILS RELATIVE PERCENT (BEAKER) (test 4 % ekyf=003) BASOPHILS RELATIVE PERCENT (BEAKER) (test 0 % xnnl=265) NEUTROPHILS ABSOLUTE COUNT (BEAKER) (test 3.97 K/ L 1.80-8.00 rumw=481) LYMPHOCYTES ABSOLUTE COUNT (BEAKER) (test 0.85 K/ L 1.48-4.50 oepd=131) MONOCYTES ABSOLUTE COUNT (BEAKER) (test gpsz=243) 0.81 K/ L 0.00-1.30 EOSINOPHILS ABSOLUTE COUNT (BEAKER) (test 0.25 K/ L 0.00-0.50 tpxw=636) BASOPHILS ABSOLUTE COUNT (BEAKER) (test pqly=535) 0.03 K/ L 0.00-0.20 [id number] 06:35:00 Test Item Value Reference Range Comments PHOSPHORUS (BEAKER) (test idvc=462) 3.5 mg/dL 2.3-4.7 [id number] 06:35:00 Test Item Value Reference Range Comments MAGNESIUM (BEAKER) (test fqca=245) 1.7 mg/dL 1.6-2.6 BASIC METABOLIC [id number] 06:35:00 Test Item Value Reference Range Comments SODIUM (BEAKER) (test 137 meq/L 136-145 wcst=240) POTASSIUM (BEAKER) (test 4.0 meq/L 3.5-5.1 yzzf=617) CHLORIDE (BEAKER) (test 109 meq/L 98-107 kreg=079) CO2 (BEAKER) (test 20 meq/L 22-29 wmqg=332) BLOOD UREA NITROGEN 13 mg/dL 7-21 (BEAKER) (test wgfz=201) CREATININE (BEAKER) (test 1.56 mg/dL 0.57-1.25 aobb=246) GLUCOSE RANDOM (BEAKER) 85 mg/dL 70-105 (test yexs=755) CALCIUM (BEAKER) (test 8.4 mg/dL 8.4-10.2 tusf=025) EGFR (BEAKER) (test 47 mL/min/1.73 sq m ESTIMATED GFR IS NOT rpuv=1015) ACCURATE CREATININE CLEARANCE IN PREDICTING GLOMERULAR FILTRATION RATE. ESTIMATED GFR IS NOT APPLICABLE FOR DIALYSIS PATIENTS. Specimen moderately ictericHEPATIC FUNCTION [id number] 06:35:00 Test Item Value Reference Range Comments TOTAL PROTEIN (BEAKER) (test zyqq=434) 6.5 gm/dL 6.0-8.3 ALBUMIN (BEAKER) (test yhmh=8779) 3.8 g/dL 3.5-5.0 BILIRUBIN TOTAL (BEAKER) (test zyxr=468) 6.1 mg/dL 0.2-1.2 BILIRUBIN DIRECT (BEAKER) (test gdbq=102) 2.9 mg/dL 0.1-0.5 ALKALINE PHOSPHATASE (BEAKER) (test idfl=293) 54 U/L 40-150 AST (SGOT) (BEAKER) (test sumy=848) 28 U/L 5-34 ALT (SGPT) (BEAKER) (test iygv=251) 7 U/L 6-55 Specimen moderately ictericPROTHROMBIN [id number] 06:06:00 Test Item Value Reference Range Comments PROTIME (BEAKER) (test dzdb=528) 26.1 seconds 11.7-14.7 INR (BEAKER) (test kdti=902) 2.4 <=5.9 RECOMMENDED COUMADIN/WARFARIN INR THERAPY RANGESSTANDARD DOSE: 2.0 - 3.0 Includes: PROPHYLAXIS forvenous thrombosis, systemic embolization; TREATMENT for venous thrombosis and/or pulmonary embolus.HIGH RISK: Target INR is 2.5-3.5 for patients with mechanical heart valves.CALCIUM, [id number] 06:06:00 Test Item Value Reference Range Comments CALCIUM IONIZED (BEAKER) (test htwl=356) 1.06 mmol/L 1.12-1.27 PH, BLOOD (BEAKER) (test uqxm=2620) 7.46 SURGICALLY OBTAINED CULTURE + GRAM [id number] 23:51:00 Test Item Value Reference Range Comments CULTURE (BEAKER) (test hlmg=7216) No growth GRAM STAIN RESULT (BEAKER) (test 1+ WBCs zzgn=7637) GRAM STAIN RESULT (BEAKER) (test No organisms seen dmlo=88223) BODY FLUID CULTURE + GRAM [id number] 23:42:00 Test Item Value Reference Range Comments CULTURE (BEAKER) (test pxqo=9760) No growth GRAM STAIN RESULT (BEAKER) (test 1+ WBCs fooh=0196) GRAM STAIN RESULT (BEAKER) (test No organisms seen dvpb=40988) BODY FLUID CELL COUNT WITH [id number] 19:59:00 Test Item Value Reference Range Comments APPEARANCE FLUID (BEAKER) (test nkqc=896) Hazy Clear COLOR FLUID (BEAKER) (test gdtz=558) Yellow Colorless, Straw RBC FLUID (BEAKER) (test xwkk=900) 2435 /cu mm <=1 ADJUSTED WBC FLUID (BEAKER) (test uciz=3293) 441 /cu mm <=5 LINING CELLS (BEAKER) (test ygfz=5550) 9 /cu mm <=1 NEUTROPHILS FLUID (BEAKER) (test euun=6403) 16 % LYMPHS FLUID (BEAKER) (test amid=742) 10 % MONO/MACROPHAGE FLUID (BEAKER) (test bmlp=889) 74 % EOSINOPHILS FLUID (BEAKER) (test qwhy=876) 0 % BASO FLUID (BEAKER) (test gteo=506) 0 % CONTAINER BODY FLUID (BEAKER) (test jfix=0701) EDTA Tube [id number] 11:01:00 Test Item Value Reference Range Comments PROCALCITONIN (BEAKER) (test olvw=5105) 0.25 ng/mL <0.05 SEPSIS RISK (ng/mL)Low: 0.05-0.50Intermediate: 0.51-2.00High: & gt;=2.01CBC W/PLT COUNT & AUTO [id number] 08:40:00 Test Item Value Reference Range Comments WHITE BLOOD CELL COUNT (BEAKER) (test mjen=084) 6.3 K/ L 4.0-10.0 RED BLOOD CELL COUNT (BEAKER) (test aiqk=166) 2.07 M/ L 4.20-5.80 HEMOGLOBIN (BEAKER) (test iabe=475) 7.1 GM/DL 13.0-16.8 HEMATOCRIT (BEAKER) (test dffo=877) 21.9 % 40.0-50.0 MEAN CORPUSCULAR VOLUME (BEAKER) (test tdhk=448) 106.0 fL 82.0-98.0 MEAN CORPUSCULAR HEMOGLOBIN (BEAKER) (test 34.1 pg 27.0-33.0 xqzl=328) MEAN CORPUSCULAR HEMOGLOBIN CONC (BEAKER) (test 32.2 GM/DL 32.0-36.0 vakq=938) RED CELL DISTRIBUTION WIDTH (BEAKER) (test 13.1 % 10.3-14.2 rcwe=793) PLATELET COUNT (BEAKER) (test kvxa=179) 78 K/CU MM 150-430 MEAN PLATELET VOLUME (BEAKER) (test nzjt=578) 6.6 fL 6.5-10.5 NUCLEATED RED BLOOD CELLS (BEAKER) (test 0 /100 WBC 0-0 jcff=740) NEUTROPHILS RELATIVE PERCENT (BEAKER) (test 73 % mirr=753) LYMPHOCYTES RELATIVE PERCENT (BEAKER) (test 10 % daqu=788) MONOCYTES RELATIVE PERCENT (BEAKER) (test 13 % gdhd=522) EOSINOPHILS RELATIVE PERCENT (BEAKER) (test 4 % wkvb=060) BASOPHILS RELATIVE PERCENT (BEAKER) (test 0 % rbeh=065) NEUTROPHILS ABSOLUTE COUNT (BEAKER) (test 4.60 K/ L 1.80-8.00 nojf=331) LYMPHOCYTES ABSOLUTE COUNT (BEAKER) (test 0.64 K/ L 1.48-4.50 zcqu=269) MONOCYTES ABSOLUTE COUNT (BEAKER) (test dnif=693) 0.81 K/ L 0.00-1.30 EOSINOPHILS ABSOLUTE COUNT (BEAKER) (test 0.23 K/ L 0.00-0.50 mmro=909) BASOPHILS ABSOLUTE COUNT (BEAKER) (test iiih=192) 0.01 K/ L 0.00-0.20 [id number] 06:50:00 Test Item Value Reference Range Comments PHOSPHORUS (BEAKER) (test byrj=836) 3.0 mg/dL 2.3-4.7 [id number] 06:50:00 Test Item Value Reference Range Comments MAGNESIUM (BEAKER) (test xnyr=500) 1.9 mg/dL 1.6-2.6 BASIC METABOLIC [id number] 06:50:00 Test Item Value Reference Range Comments SODIUM (BEAKER) (test 135 meq/L 136-145 hgvc=228) POTASSIUM (BEAKER) (test 4.2 meq/L 3.5-5.1 leki=435) CHLORIDE (BEAKER) (test 106 meq/L 98-107 lfyy=821) CO2 (BEAKER) (test 21 meq/L 22-29 tbdn=126) BLOOD UREA NITROGEN 19 mg/dL 7-21 (BEAKER) (test titc=263) CREATININE (BEAKER) (test 1.62 mg/dL 0.57-1.25 amge=334) GLUCOSE RANDOM (BEAKER) 98 mg/dL 70-105 (test svrc=402) CALCIUM (BEAKER) (test 8.6 mg/dL 8.4-10.2 dilf=985) EGFR (BEAKER) (test 45 mL/min/1.73 sq m ESTIMATED GFR IS NOT pebx=6350) ACCURATE CREATININE CLEARANCE IN PREDICTING GLOMERULAR FILTRATION RATE. ESTIMATED GFR IS NOT APPLICABLE FOR DIALYSIS PATIENTS. Specimen moderately ictericHEPATIC FUNCTION [id number] 06:50:00 Test Item Value Reference Range Comments TOTAL PROTEIN (BEAKER) (test txhz=195) 6.3 gm/dL 6.0-8.3 ALBUMIN (BEAKER) (test tspf=8681) 3.7 g/dL 3.5-5.0 BILIRUBIN TOTAL (BEAKER) (test jexb=896) 6.2 mg/dL 0.2-1.2 BILIRUBIN DIRECT (BEAKER) (test yogb=264) 2.8 mg/dL 0.1-0.5 ALKALINE PHOSPHATASE (BEAKER) (test relo=745) 54 U/L 40-150 AST (SGOT) (BEAKER) (test edpy=054) 29 U/L 5-34 ALT (SGPT) (BEAKER) (test egjs=371) 8 U/L 6-55 Specimen moderately ictericCALCIUM, [id number] 06:48:00 Test Item Value Reference Range Comments CALCIUM IONIZED (BEAKER) (test vxfy=723) 1.12 mmol/L 1.12-1.27 PH, BLOOD (BEAKER) (test wtrm=9604) 7.33 PROTHROMBIN [id number] 06:24:00 Test Item Value Reference Range Comments PROTIME (BEAKER) (test ukzf=549) 25.4 seconds 11.7-14.7 INR (BEAKER) (test cnij=531) 2.3 <=5.9 RECOMMENDED COUMADIN/WARFARIN INR THERAPY RANGESSTANDARD DOSE: 2.0 - 3.0 Includes: PROPHYLAXIS forvenous thrombosis, systemic embolization; TREATMENT for venous thrombosis and/or pulmonary embolus.HIGH RISK: Target INR is 2.5-3.5 for patients with mechanical heart valves.[id number] 11:17:00 Test Item Value Reference Range Comments FIBRINOGEN LEVEL (BEAKER) (test xquh=490) 115 mg/dl 225-434 CALCIUM, [id number] 06:04:00 Test Item Value Reference Range Comments CALCIUM IONIZED (BEAKER) (test noxo=408) 1.08 mmol/L 1.12-1.27 PH, BLOOD (BEAKER) (test yjnz=5665) 7.41 CBC W/PLT COUNT & AUTO [id number] 05:28:00 Test Item Value Reference Range Comments WHITE BLOOD CELL COUNT (BEAKER) (test xccb=723) 5.6 K/ L 4.0-10.0 RED BLOOD CELL COUNT (BEAKER) (test obyi=578) 2.00 M/ L 4.20-5.80 HEMOGLOBIN (BEAKER) (test fyuk=147) 7.2 GM/DL 13.0-16.8 HEMATOCRIT (BEAKER) (test qyzn=725) 21.2 % 40.0-50.0 MEAN CORPUSCULAR VOLUME (BEAKER) (test bjpz=456) 106.0 fL 82.0-98.0 MEAN CORPUSCULAR HEMOGLOBIN (BEAKER) (test 36.0 pg 27.0-33.0 ykkd=989) MEAN CORPUSCULAR HEMOGLOBIN CONC (BEAKER) (test 34.0 GM/DL 32.0-36.0 wchr=355) RED CELL DISTRIBUTION WIDTH (BEAKER) (test 13.9 % 10.3-14.2 iwrp=819) PLATELET COUNT (BEAKER) (test ocsb=682) 74 K/CU MM 150-430 MEAN PLATELET VOLUME (BEAKER) (test hrny=539) 6.6 fL 6.5-10.5 NUCLEATED RED BLOOD CELLS (BEAKER) (test 0 /100 WBC 0-0 kais=516) NEUTROPHILS RELATIVE PERCENT (BEAKER) (test 66 % onhh=467) LYMPHOCYTES RELATIVE PERCENT (BEAKER) (test 14 % pzqr=344) MONOCYTES RELATIVE PERCENT (BEAKER) (test 13 % arbl=120) EOSINOPHILS RELATIVE PERCENT (BEAKER) (test 7 % enqj=548) BASOPHILS RELATIVE PERCENT (BEAKER) (test 0 % gjea=589) NEUTROPHILS ABSOLUTE COUNT (BEAKER) (test 3.67 K/ L 1.80-8.00 fvug=799) LYMPHOCYTES ABSOLUTE COUNT (BEAKER) (test 0.80 K/ L 1.48-4.50 ettc=447) MONOCYTES ABSOLUTE COUNT (BEAKER) (test bfqe=371) 0.69 K/ L 0.00-1.30 EOSINOPHILS ABSOLUTE COUNT (BEAKER) (test 0.38 K/ L 0.00-0.50 zcsr=785) BASOPHILS ABSOLUTE COUNT (BEAKER) (test dhlg=948) 0.02 K/ L 0.00-0.20 0.00PROTHROMBIN [id number] 05:11:00 Test Item Value Reference Range Comments PROTIME (BEAKER) (test eseo=248) 25.9 seconds 11.7-14.7 INR (BEAKER) (test fyzq=979) 2.4 <=5.9 RECOMMENDED COUMADIN/WARFARIN INR THERAPY RANGESSTANDARD DOSE: 2.0 - 3.0 Includes: PROPHYLAXIS forvenous thrombosis, systemic embolization; TREATMENT for venous thrombosis and/or pulmonary embolus.HIGH RISK: Target INR is 2.5-3.5 for patients with mechanical heart valves.[id number] 05:03:00 Test Item Value Reference Range Comments PHOSPHORUS (BEAKER) (test uhab=348) 3.5 mg/dL 2.3-4.7 [id number] 05:03:00 Test Item Value Reference Range Comments MAGNESIUM (BEAKER) (test bawn=256) 1.7 mg/dL 1.6-2.6 BASIC METABOLIC [id number] 05:03:00 Test Item Value Reference Range Comments SODIUM (BEAKER) (test 135 meq/L 136-145 iwmi=841) POTASSIUM (BEAKER) (test 4.0 meq/L 3.5-5.1 kcoh=129) CHLORIDE (BEAKER) (test 107 meq/L 98-107 jxgx=884) CO2 (BEAKER) (test 20 meq/L 22-29 vjhs=862) BLOOD UREA NITROGEN 22 mg/dL 7-21 (BEAKER) (test ddqm=299) CREATININE (BEAKER) (test 1.77 mg/dL 0.57-1.25 euus=186) GLUCOSE RANDOM (BEAKER) 83 mg/dL 70-105 (test weuk=177) CALCIUM (BEAKER) (test 8.3 mg/dL 8.4-10.2 ruko=562) EGFR (BEAKER) (test 41 mL/min/1.73 sq m ESTIMATED GFR IS NOT xzon=6179) ACCURATE CREATININE CLEARANCE IN PREDICTING GLOMERULAR FILTRATION RATE. ESTIMATED GFR IS NOT APPLICABLE FOR DIALYSIS PATIENTS. Specimen moderately ictericHEPATIC FUNCTION [id number] 05:03:00 Test Item Value Reference Range Comments TOTAL PROTEIN (BEAKER) (test yjuo=931) 6.2 gm/dL 6.0-8.3 ALBUMIN (BEAKER) (test utkv=6116) 3.7 g/dL 3.5-5.0 BILIRUBIN TOTAL (BEAKER) (test kpkz=198) 6.0 mg/dL 0.2-1.2 BILIRUBIN DIRECT (BEAKER) (test cote=649) 2.6 mg/dL 0.1-0.5 ALKALINE PHOSPHATASE (BEAKER) (test lgzl=319) 48 U/L 40-150 AST (SGOT) (BEAKER) (test bjst=262) 26 U/L 5-34 ALT (SGPT) (BEAKER) (test vpfi=916) 8 U/L 6-55 Specimen moderately ictericURINE [id number] 14:42:00 Test Item Value Reference Range Comments CULTURE (BEAKER) (test gdvt=3288) No growth ANTI-NUCLEAR ANTIBODY (CHERYL)[id number] 13:32:00 Test Item Value Reference Range Comments ANTI-NUCLEAR ANTIBODY (CHERYL) (BEAKER) (test Negative Negative xozc=369) PLATELET [id number] 06:30:00 Test Item Value Reference Range Comments PLATELET COUNT (BEAKER) (test blbr=870) 104 K/CU MM 150-430 [id number] 06:22:00 Test Item Value Reference Range Comments FIBRINOGEN LEVEL (BEAKER) (test umkm=958) 106 mg/dl 225-434 [id number] 06:16:00 Test Item Value Reference Range Comments PARTIAL THROMBOPLASTIN TIME (BEAKER) (test 48.1 seconds 22.5-36.0 embt=013) PROTHROMBIN [id number] 06:15:00 Test Item Value Reference Range Comments PROTIME (BEAKER) (test vkdk=273) 23.5 seconds 11.7-14.7 INR (BEAKER) (test bmwx=693) 2.1 <=5.9 RECOMMENDED COUMADIN/WARFARIN INR THERAPY RANGESSTANDARD DOSE: 2.0 - 3.0 Includes: PROPHYLAXIS forvenous thrombosis, systemic embolization; TREATMENT for venous thrombosis and/or pulmonary embolus.HIGH RISK: Target INR is 2.5-3.5 for patients with mechanical heart valves.[id number] 06:12:00 Test Item Value Reference Range Comments MAGNESIUM (BEAKER) (test 2.0 mg/dL 1.6-2.6 Specimen slightly hemolyzed hvre=840) [id number] 06:12:00 Test Item Value Reference Range Comments PHOSPHORUS (BEAKER) (test 5.0 mg/dL 2.3-4.7 Specimen slightly hemolyzed huhu=875) BASIC METABOLIC [id number] 06:12:00 Test Item Value Reference Range Comments SODIUM (BEAKER) (test 135 meq/L 136-145 hkfo=675) POTASSIUM (BEAKER) (test 4.7 meq/L 3.5-5.1 Specimen slightly vvvk=205) hemolyzed CHLORIDE (BEAKER) (test 107 meq/L 98-107 adtv=312) CO2 (BEAKER) (test 20 meq/L 22-29 taym=847) BLOOD UREA NITROGEN 18 mg/dL 7-21 (BEAKER) (test afyi=578) CREATININE (BEAKER) (test 1.74 mg/dL 0.57-1.25 Specimen slightly xvut=464) hemolyzed GLUCOSE RANDOM (BEAKER) 76 mg/dL 70-105 (test xzaf=226) CALCIUM (BEAKER) (test 8.1 mg/dL 8.4-10.2 uvez=918) EGFR (BEAKER) (test 42 mL/min/1.73 sq m ESTIMATED GFR IS NOT sbqg=4243) ACCURATE CREATININE CLEARANCE IN PREDICTING GLOMERULAR FILTRATION RATE. ESTIMATED GFR IS NOT APPLICABLE FOR DIALYSIS PATIENTS. Specimen moderately ictericHEPATIC FUNCTION [id number] 06:12:00 Test Item Value Reference Range Comments TOTAL PROTEIN (BEAKER) (test 6.6 gm/dL 6.0-8.3 Specimen slightly hemolyzed fbyp=939) ALBUMIN (BEAKER) (test 3.7 g/dL 3.5-5.0 Specimen slightly hemolyzed qzyr=8619) BILIRUBIN TOTAL (BEAKER) (test 5.7 mg/dL 0.2-1.2 Specimen slightly hemolyzed egvx=815) BILIRUBIN DIRECT (BEAKER) (test 2.7 mg/dL 0.1-0.5 Specimen slightly hemolyzed ycbu=012) ALKALINE PHOSPHATASE (BEAKER) 56 U/L 40-150 (test lcmw=059) AST (SGOT) (BEAKER) (test 29 U/L 5-34 Specimen slightly hemolyzed zzkt=332) ALT (SGPT) (BEAKER) (test 7 U/L 6-55 Specimen slightly hemolyzed rqwi=555) Specimen moderately ictericLACTIC ACID, VENOUS, WHOLE [id number] 06:04:00 Test Item Value Reference Range Comments LACTATE BLOOD VENOUS (2) (BEAKER) (test 1.0 mmol/L 0.5-2.2 nhdv=3132) Effective 02/28/2016: Units/Reference Range ChangeNew: 0.5-2.2 mmol/L Previous: 5 -20 mg/dLSpecimen moderately ictericCALCIUM, [id number] 05:56:00 Test Item Value Reference Range Comments CALCIUM IONIZED (BEAKER) (test fqkr=557) 1.00 mmol/L 1.12-1.27 PH, BLOOD (BEAKER) (test jjue=4054) 7.34 [id number] 21:34:00 Test Item Value Reference Range Comments FIBRINOGEN LEVEL (BEAKER) (test pvmn=705) 105 mg/dl 225-434 PLATELET [id number] 20:52:00 Test Item Value Reference Range Comments PLATELET COUNT (BEAKER) (test dthq=406) 77 K/CU MM 150-430 [id number] 20:51:00 Test Item Value Reference Range Comments PROTIME (BEAKER) (test tfdl=599) 21.1 seconds 11.7-14.7 INR (BEAKER) (test uorq=704) 1.8 <=5.9 PARTIAL THROMBOPLASTIN TIME (BEAKER) (test 47.3 seconds 22.5-36.0 wdgh=654) RECOMMENDED COUMADIN/WARFARIN INR THERAPY RANGESSTANDARD DOSE: 2.0 - 3.0 Includes: PROPHYLAXIS forvenous thrombosis, systemic embolization; TREATMENT for venous thrombosis and/or pulmonary embolus.HIGH RISK: Target INR is 2.5-3.5 for patients with mechanical heart valves.[id number] 20:51:00 Test Item Value Reference Range Comments PARTIAL THROMBOPLASTIN TIME (BEAKER) (test 47.3 seconds 22.5-36.0 mesj=033) PROTHROMBIN [id number] 20:50:00 Test Item Value Reference Range Comments PROTIME (BEAKER) (test rhpw=180) 21.1 seconds 11.7-14.7 INR (BEAKER) (test igxy=650) 1.8 <=5.9 RECOMMENDED COUMADIN/WARFARIN INR THERAPY RANGESSTANDARD DOSE: 2.0 - 3.0 Includes: PROPHYLAXIS forvenous thrombosis, systemic embolization; TREATMENT for venous thrombosis and/or pulmonary embolus.HIGH RISK: Target INR is 2.5-3.5 for patients with mechanical heart valves.[id number] 19:30:00 Test Item Value Reference Range Comments PARTIAL THROMBOPLASTIN TIME (BEAKER) (test 45.1 seconds 22.5-36.0 iepp=648) PROTHROMBIN [id number] 19:29:00 Test Item Value Reference Range Comments PROTIME (BEAKER) (test utis=285) 28.2 seconds 11.7-14.7 INR (BEAKER) (test sdrc=221) 2.6 <=5.9 RECOMMENDED COUMADIN/WARFARIN INR THERAPY RANGESSTANDARD DOSE: 2.0 - 3.0 Includes: PROPHYLAXIS forvenous thrombosis, systemic embolization; TREATMENT for venous thrombosis and/or pulmonary embolus.HIGH RISK: Target INR is 2.5-3.5 for patients with mechanical heart valves.BODY FLUID CELL COUNT WITH [id number] 18:53:00 Test Item Value Reference Range Comments APPEARANCE FLUID (BEAKER) (test cwhx=227) Hazy Clear COLOR FLUID (BEAKER) (test pmlz=614) Yellow Colorless, Straw RBC FLUID (BEAKER) (test ecxc=302) 900 /cu mm <=1 ADJUSTED WBC FLUID (BEAKER) (test xuiw=0779) 306 /cu mm <=5 LINING CELLS (BEAKER) (test urwj=6764) 64 /cu mm <=1 NEUTROPHILS FLUID (BEAKER) (test bqpv=1004) 4 % LYMPHS FLUID (BEAKER) (test szxj=209) 18 % MONO/MACROPHAGE FLUID (BEAKER) (test gptk=468) 78 % EOSINOPHILS FLUID (BEAKER) (test yetu=916) 0 % BASO FLUID (BEAKER) (test bell=374) 0 % CONTAINER BODY FLUID (BEAKER) (test tnfq=3055) EDTA Tube [id number] 16:56:00 Test Item Value Reference Range Comments AMYLASE (BEAKER) (test qalf=340) 37 U/L 25-125 Specimen moderately ictericCOMPREHENSIVE METABOLIC [id number] 16:56:00 Test Item Value Reference Range Comments TOTAL PROTEIN (BEAKER) 6.1 gm/dL 6.0-8.3 (test ttrq=229) ALBUMIN (BEAKER) (test 3.2 g/dL 3.5-5.0 dpvt=2586) ALKALINE PHOSPHATASE 67 U/L 40-150 (BEAKER) (test tzaw=730) BILIRUBIN TOTAL (BEAKER) 5.7 mg/dL 0.2-1.2 (test kttk=863) SODIUM (BEAKER) (test 134 meq/L 136-145 akfc=187) POTASSIUM (BEAKER) (test 3.8 meq/L 3.5-5.1 gzqk=150) CHLORIDE (BEAKER) (test 106 meq/L 98-107 ybuv=571) CO2 (BEAKER) (test 19 meq/L 22-29 pwfd=965) BLOOD UREA NITROGEN 18 mg/dL 7-21 (BEAKER) (test hqmo=713) CREATININE (BEAKER) (test 1.52 mg/dL 0.57-1.25 mkzo=742) GLUCOSE RANDOM (BEAKER) 112 mg/dL 70-105 (test heyk=115) CALCIUM (BEAKER) (test 8.3 mg/dL 8.4-10.2 oznq=920) AST (SGOT) (BEAKER) (test 28 U/L 5-34 marx=749) ALT (SGPT) (BEAKER) (test 10 U/L 6-55 jjgq=294) EGFR (BEAKER) (test 49 mL/min/1.73 sq m ESTIMATED GFR IS NOT ecrr=1215) ACCURATE CREATININE CLEARANCE IN PREDICTING GLOMERULAR FILTRATION RATE. ESTIMATED GFR IS NOT APPLICABLE FOR DIALYSIS PATIENTS. Specimen moderately [id number] 16:56:00 Test Item Value Reference Range Comments LIPASE (BEAKER) (test yazc=036) 52 U/L 8-78 Specimen moderately ictericCBC W/PLT COUNT & AUTO [id number] 16: 27:00 Test Item Value Reference Range Comments WHITE BLOOD CELL COUNT (BEAKER) (test yqib=817) 3.7 K/ L 4.0-10.0 RED BLOOD CELL COUNT (BEAKER) (test lduh=734) 2.16 M/ L 4.20-5.80 HEMOGLOBIN (BEAKER) (test dqjx=225) 7.8 GM/DL 13.0-16.8 HEMATOCRIT (BEAKER) (test nivk=646) 23.1 % 40.0-50.0 MEAN CORPUSCULAR VOLUME (BEAKER) (test edka=276) 107.0 fL 82.0-98.0 MEAN CORPUSCULAR HEMOGLOBIN (BEAKER) (test 36.0 pg 27.0-33.0 kqyw=732) MEAN CORPUSCULAR HEMOGLOBIN CONC (BEAKER) (test 33.6 GM/DL 32.0-36.0 pchl=212) RED CELL DISTRIBUTION WIDTH (BEAKER) (test 13.9 % 10.3-14.2 apjn=461) PLATELET COUNT (BEAKER) (test jzuo=246) 78 K/CU MM 150-430 MEAN PLATELET VOLUME (BEAKER) (test ztdh=365) 6.2 fL 6.5-10.5 NUCLEATED RED BLOOD CELLS (BEAKER) (test 0 /100 WBC 0-0 hxyg=362) NEUTROPHILS RELATIVE PERCENT (BEAKER) (test 50 % grbj=516) LYMPHOCYTES RELATIVE PERCENT (BEAKER) (test 25 % kdeq=788) MONOCYTES RELATIVE PERCENT (BEAKER) (test 19 % hpmb=053) EOSINOPHILS RELATIVE PERCENT (BEAKER) (test 6 % cztr=766) BASOPHILS RELATIVE PERCENT (BEAKER) (test 1 % atuy=731) NEUTROPHILS ABSOLUTE COUNT (BEAKER) (test 1.82 K/ L 1.80-8.00 dcpj=683) LYMPHOCYTES ABSOLUTE COUNT (BEAKER) (test 0.91 K/ L 1.48-4.50 qszm=146) MONOCYTES ABSOLUTE COUNT (BEAKER) (test ojjt=989) 0.69 K/ L 0.00-1.30 EOSINOPHILS ABSOLUTE COUNT (BEAKER) (test 0.21 K/ L 0.00-0.50 qepa=106) BASOPHILS ABSOLUTE COUNT (BEAKER) (test qaqe=736) 0.02 K/ L 0.00-0.20 0.00HEPATIC FUNCTION [id number] 08:34:00 Test Item Value Reference Range Comments TOTAL PROTEIN (BEAKER) (test fdvr=799) 5.9 gm/dL 6.0-8.3 ALBUMIN (BEAKER) (test wmld=2729) 3.2 g/dL 3.5-5.0 BILIRUBIN TOTAL (BEAKER) (test oert=743) 5.4 mg/dL 0.2-1.2 BILIRUBIN DIRECT (BEAKER) (test qung=084) 2.5 mg/dL 0.1-0.5 ALKALINE PHOSPHATASE (BEAKER) (test ugmw=345) 60 U/L 40-150 AST (SGOT) (BEAKER) (test zyop=046) 28 U/L 5-34 ALT (SGPT) (BEAKER) (test vjax=916) 10 U/L 6-55 Specimen moderately [id number] 08:16:00 Test Item Value Reference Range Comments PHOSPHORUS (BEAKER) (test rtlx=598) 3.0 mg/dL 2.3-4.7 [id number] 08:16:00 Test Item Value Reference Range Comments MAGNESIUM (BEAKER) (test eupx=507) 1.6 mg/dL 1.6-2.6 BASIC METABOLIC [id number] 08:16:00 Test Item Value Reference Range Comments SODIUM (BEAKER) (test 133 meq/L 136-145 xabm=529) POTASSIUM (BEAKER) (test 3.6 meq/L 3.5-5.1 pkpk=251) CHLORIDE (BEAKER) (test 105 meq/L 98-107 gxro=550) CO2 (BEAKER) (test 20 meq/L 22-29 ezek=111) BLOOD UREA NITROGEN 18 mg/dL 7-21 (BEAKER) (test dkys=988) CREATININE (BEAKER) (test 1.54 mg/dL 0.57-1.25 zbxl=225) GLUCOSE RANDOM (BEAKER) 70 mg/dL 70-105 (test necw=476) CALCIUM (BEAKER) (test 8.2 mg/dL 8.4-10.2 vmsc=015) EGFR (BEAKER) (test 48 mL/min/1.73 sq m ESTIMATED GFR IS NOT vuic=5721) ACCURATE CREATININE CLEARANCE IN PREDICTING GLOMERULAR FILTRATION RATE. ESTIMATED GFR IS NOT APPLICABLE FOR DIALYSIS PATIENTS. Specimen moderately ictericCBC W/PLT COUNT & AUTO [id number] 08: 06:00 Test Item Value Reference Range Comments WHITE BLOOD CELL COUNT (BEAKER) (test wyco=558) 3.4 K/ L 4.0-10.0 RED BLOOD CELL COUNT (BEAKER) (test kutm=844) 2.03 M/ L 4.20-5.80 HEMOGLOBIN (BEAKER) (test ksao=407) 7.3 GM/DL 13.0-16.8 HEMATOCRIT (BEAKER) (test sbdg=881) 21.6 % 40.0-50.0 MEAN CORPUSCULAR VOLUME (BEAKER) (test diwe=209) 106.0 fL 82.0-98.0 MEAN CORPUSCULAR HEMOGLOBIN (BEAKER) (test 35.8 pg 27.0-33.0 kbtl=825) MEAN CORPUSCULAR HEMOGLOBIN CONC (BEAKER) (test 33.7 GM/DL 32.0-36.0 sbsp=416) RED CELL DISTRIBUTION WIDTH (BEAKER) (test 13.5 % 10.3-14.2 ndzx=041) PLATELET COUNT (BEAKER) (test etgb=159) 82 K/CU MM 150-430 MEAN PLATELET VOLUME (BEAKER) (test woia=407) 6.7 fL 6.5-10.5 NUCLEATED RED BLOOD CELLS (BEAKER) (test 0 /100 WBC 0-0 gfgx=218) NEUTROPHILS RELATIVE PERCENT (BEAKER) (test 50 % bzqn=574) LYMPHOCYTES RELATIVE PERCENT (BEAKER) (test 25 % aczv=323) MONOCYTES RELATIVE PERCENT (BEAKER) (test 19 % yllm=430) EOSINOPHILS RELATIVE PERCENT (BEAKER) (test 5 % uetw=084) BASOPHILS RELATIVE PERCENT (BEAKER) (test 1 % xdyk=098) NEUTROPHILS ABSOLUTE COUNT (BEAKER) (test 1.69 K/ L 1.80-8.00 pela=871) LYMPHOCYTES ABSOLUTE COUNT (BEAKER) (test 0.83 K/ L 1.48-4.50 psgm=487) MONOCYTES ABSOLUTE COUNT (BEAKER) (test fqsg=317) 0.65 K/ L 0.00-1.30 EOSINOPHILS ABSOLUTE COUNT (BEAKER) (test 0.17 K/ L 0.00-0.50 yqdt=783) BASOPHILS ABSOLUTE COUNT (BEAKER) (test fbqr=391) 0.04 K/ L 0.00-0.20 0.00PROTHROMBIN [id number] 08:01:00 Test Item Value Reference Range Comments PROTIME (BEAKER) (test oxva=912) 27.6 seconds 11.7-14.7 INR (BEAKER) (test xlbe=439) 2.6 <=5.9 RECOMMENDED COUMADIN/WARFARIN INR THERAPY RANGESSTANDARD DOSE: 2.0 - 3.0 Includes: PROPHYLAXIS forvenous thrombosis, systemic embolization; TREATMENT for venous thrombosis and/or pulmonary embolus.HIGH RISK: Target INR is 2.5-3.5 for patients with mechanical heart valves.CALCIUM, [id number] 07:58:00 Test Item Value Reference Range Comments CALCIUM IONIZED (BEAKER) (test ecxq=634) 1.00 mmol/L 1.12-1.27 PH, BLOOD (BEAKER) (test hnpm=7239) 7.53 URINALYSIS W/ [id number] 18:42:00 Test Item Value Reference Range Comments COLOR (BEAKER) (test wdfl=517) Yellow CLARITY (BEAKER) (test bukc=421) Clear SPECIFIC GRAVITY UA (BEAKER) (test 1.009 1.001-1.035 hbsc=235) PH UA (BEAKER) (test xwlv=685) 7.5 5.0-8.0 PROTEIN UA (BEAKER) (test sjun=075) Negative Negative GLUCOSE UA (BEAKER) (test ewjx=446) Negative Negative KETONES UA (BEAKER) (test jzpr=624) Negative Negative BILIRUBIN UA (BEAKER) (test irua=493) Negative Negative BLOOD UA (BEAKER) (test mtcq=411) Negative Negative NITRITE UA (BEAKER) (test isvi=738) Negative Negative LEUKOCYTE ESTERASE UA (BEAKER) (test Negative Negative fnek=392) UROBILINOGEN UA (BEAKER) (test inqq=673) 3.0 mg/dL 0.2-1.0 RBC UA (BEAKER) (test mqdr=427) 6 /HPF WBC UA (BEAKER) (test wlqe=821) 1 /HPF SOURCE(BEAKER) (test bnbj=9120) Urine, Clean Catch PROTHROMBIN [id number] 15:13:00 Test Item Value Reference Range Comments PROTIME (BEAKER) (test blfs=056) 31.4 seconds 11.7-14.7 INR (BEAKER) (test meom=784) 3.0 <=5.9 RECOMMENDED COUMADIN/WARFARIN INR THERAPY RANGESSTANDARD DOSE: 2.0 - 3.0 Includes: PROPHYLAXIS forvenous thrombosis, systemic embolization; TREATMENT for venous thrombosis and/or pulmonary embolus.HIGH RISK: Target INR is 2.5-3.5 for patients with mechanical heart valves.Draw after vitamin K administrationCBC W/PLT COUNT & AUTO [id number] 07:02:00 Test Item Value Reference Range Comments WHITE BLOOD CELL COUNT (BEAKER) (test gzjv=084) 3.0 K/ L 4.0-10.0 RED BLOOD CELL COUNT (BEAKER) (test dyzp=646) 2.21 M/ L 4.20-5.80 HEMOGLOBIN (BEAKER) (test dfqi=451) 7.5 GM/DL 13.0-16.8 HEMATOCRIT (BEAKER) (test pbzn=952) 23.5 % 40.0-50.0 MEAN CORPUSCULAR VOLUME (BEAKER) (test kzpa=928) 106.0 fL 82.0-98.0 MEAN CORPUSCULAR HEMOGLOBIN (BEAKER) (test 34.0 pg 27.0-33.0 apns=671) MEAN CORPUSCULAR HEMOGLOBIN CONC (BEAKER) (test 32.0 GM/DL 32.0-36.0 yyhn=489) RED CELL DISTRIBUTION WIDTH (BEAKER) (test 13.0 % 10.3-14.2 fanq=135) PLATELET COUNT (BEAKER) (test plfp=524) 81 K/CU MM 150-430 MEAN PLATELET VOLUME (BEAKER) (test grey=906) 6.3 fL 6.5-10.5 NUCLEATED RED BLOOD CELLS (BEAKER) (test 0 /100 WBC 0-0 hjob=246) NEUTROPHILS RELATIVE PERCENT (BEAKER) (test 52 % lepn=108) LYMPHOCYTES RELATIVE PERCENT (BEAKER) (test 24 % phdj=949) MONOCYTES RELATIVE PERCENT (BEAKER) (test 20 % kohl=771) EOSINOPHILS RELATIVE PERCENT (BEAKER) (test 3 % hjem=424) BASOPHILS RELATIVE PERCENT (BEAKER) (test 1 % bois=516) NEUTROPHILS ABSOLUTE COUNT (BEAKER) (test 1.53 K/ L 1.80-8.00 eqni=830) LYMPHOCYTES ABSOLUTE COUNT (BEAKER) (test 0.71 K/ L 1.48-4.50 sjjx=574) MONOCYTES ABSOLUTE COUNT (BEAKER) (test qopb=183) 0.60 K/ L 0.00-1.30 EOSINOPHILS ABSOLUTE COUNT (BEAKER) (test 0.10 K/ L 0.00-0.50 bzys=379) BASOPHILS ABSOLUTE COUNT (BEAKER) (test uhqw=750) 0.03 K/ L 0.00-0.20 0.00BASIC METABOLIC [id number] 06:29:00 Test Item Value Reference Range Comments SODIUM (BEAKER) (test 135 meq/L 136-145 pylm=111) POTASSIUM (BEAKER) (test 4.0 meq/L 3.5-5.1 gxzj=596) CHLORIDE (BEAKER) (test 106 meq/L 98-107 ldnw=348) CO2 (BEAKER) (test 22 meq/L 22-29 mdbo=545) BLOOD UREA NITROGEN 17 mg/dL 7-21 (BEAKER) (test daij=721) CREATININE (BEAKER) (test 1.46 mg/dL 0.57-1.25 zfzk=871) GLUCOSE RANDOM (BEAKER) 75 mg/dL 70-105 (test wqjv=691) CALCIUM (BEAKER) (test 8.0 mg/dL 8.4-10.2 xrbc=056) EGFR (BEAKER) (test 51 mL/min/1.73 sq m ESTIMATED GFR IS NOT lldm=7065) ACCURATE CREATININE CLEARANCE IN PREDICTING GLOMERULAR FILTRATION RATE. ESTIMATED GFR IS NOT APPLICABLE FOR DIALYSIS PATIENTS. Specimen moderately ictericHEPATIC FUNCTION [id number] 06:29:00 Test Item Value Reference Range Comments TOTAL PROTEIN (BEAKER) (test iunu=623) 5.9 gm/dL 6.0-8.3 ALBUMIN (BEAKER) (test cbhg=5494) 3.0 g/dL 3.5-5.0 BILIRUBIN TOTAL (BEAKER) (test zbrb=354) 5.4 mg/dL 0.2-1.2 BILIRUBIN DIRECT (BEAKER) (test qxbt=325) 2.7 mg/dL 0.1-0.5 ALKALINE PHOSPHATASE (BEAKER) (test meby=385) 65 U/L 40-150 AST (SGOT) (BEAKER) (test ggpo=199) 27 U/L 5-34 ALT (SGPT) (BEAKER) (test ftbd=700) 7 U/L 6-55 Specimen moderately ictericPROTHROMBIN [id number] 06:23:00 Test Item Value Reference Range Comments PROTIME (BEAKER) (test wheq=233) 31.2 seconds 11.7-14.7 INR (BEAKER) (test ujde=890) 3.0 <=5.9 RECOMMENDED COUMADIN/WARFARIN INR THERAPY RANGESSTANDARD DOSE: 2.0 - 3.0 Includes: PROPHYLAXIS forvenous thrombosis, systemic embolization; TREATMENT for venous thrombosis and/or pulmonary embolus.HIGH RISK: Target INR is 2.5-3.5 for patients with mechanical heart valves.CBC W/PLT COUNT & AUTO [id number] 06:26:00 Test Item Value Reference Range Comments WHITE BLOOD CELL COUNT (BEAKER) (test bblt=610) 3.0 K/ L 4.0-10.0 RED BLOOD CELL COUNT (BEAKER) (test rfig=906) 2.16 M/ L 4.20-5.80 HEMOGLOBIN (BEAKER) (test edqu=887) 7.4 GM/DL 13.0-16.8 HEMATOCRIT (BEAKER) (test ebip=213) 23.1 % 40.0-50.0 MEAN CORPUSCULAR VOLUME (BEAKER) (test yzbq=326) 107.0 fL 82.0-98.0 MEAN CORPUSCULAR HEMOGLOBIN (BEAKER) (test 34.4 pg 27.0-33.0 jtwz=203) MEAN CORPUSCULAR HEMOGLOBIN CONC (BEAKER) (test 32.1 GM/DL 32.0-36.0 vgak=170) RED CELL DISTRIBUTION WIDTH (BEAKER) (test 13.1 % 10.3-14.2 eenb=709) PLATELET COUNT (BEAKER) (test fvkr=438) 72 K/CU MM 150-430 MEAN PLATELET VOLUME (BEAKER) (test jbhv=435) 6.1 fL 6.5-10.5 NUCLEATED RED BLOOD CELLS (BEAKER) (test 0 /100 WBC 0-0 mkip=623) NEUTROPHILS RELATIVE PERCENT (BEAKER) (test 58 % pduk=337) LYMPHOCYTES RELATIVE PERCENT (BEAKER) (test 21 % lspu=630) MONOCYTES RELATIVE PERCENT (BEAKER) (test 15 % dhse=975) EOSINOPHILS RELATIVE PERCENT (BEAKER) (test 4 % evel=225) BASOPHILS RELATIVE PERCENT (BEAKER) (test 1 % mvxc=048) NEUTROPHILS ABSOLUTE COUNT (BEAKER) (test 1.73 K/ L 1.80-8.00 fyik=038) LYMPHOCYTES ABSOLUTE COUNT (BEAKER) (test 0.64 K/ L 1.48-4.50 idwz=158) MONOCYTES ABSOLUTE COUNT (BEAKER) (test pqvj=736) 0.45 K/ L 0.00-1.30 EOSINOPHILS ABSOLUTE COUNT (BEAKER) (test 0.13 K/ L 0.00-0.50 rhkq=265) BASOPHILS ABSOLUTE COUNT (BEAKER) (test ujny=065) 0.02 K/ L 0.00-0.20 0.00BASIC METABOLIC [id number] 06:24:00 Test Item Value Reference Range Comments SODIUM (BEAKER) (test 134 meq/L 136-145 ybhm=142) POTASSIUM (BEAKER) (test 3.7 meq/L 3.5-5.1 ledt=721) CHLORIDE (BEAKER) (test 105 meq/L 98-107 zepa=972) CO2 (BEAKER) (test 21 meq/L 22-29 ikoj=339) BLOOD UREA NITROGEN 18 mg/dL 7-21 (BEAKER) (test hjno=152) CREATININE (BEAKER) (test 1.53 mg/dL 0.57-1.25 gnsq=671) GLUCOSE RANDOM (BEAKER) 103 mg/dL 70-105 (test ibia=797) CALCIUM (BEAKER) (test 7.6 mg/dL 8.4-10.2 ddek=305) EGFR (BEAKER) (test 48 mL/min/1.73 sq m ESTIMATED GFR IS NOT rkwk=2737) ACCURATE CREATININE CLEARANCE IN PREDICTING GLOMERULAR FILTRATION RATE. ESTIMATED GFR IS NOT APPLICABLE FOR DIALYSIS PATIENTS. Specimen moderately ictericHEPATIC FUNCTION [id number] 06:19:00 Test Item Value Reference Range Comments TOTAL PROTEIN (BEAKER) (test uycn=799) 5.6 gm/dL 6.0-8.3 ALBUMIN (BEAKER) (test oxld=6350) 2.4 g/dL 3.5-5.0 BILIRUBIN TOTAL (BEAKER) (test yloj=845) 4.8 mg/dL 0.2-1.2 BILIRUBIN DIRECT (BEAKER) (test ateu=129) 2.6 mg/dL 0.1-0.5 ALKALINE PHOSPHATASE (BEAKER) (test vixp=636) 70 U/L 40-150 AST (SGOT) (BEAKER) (test lxfu=473) 28 U/L 5-34 ALT (SGPT) (BEAKER) (test yzvt=599) 11 U/L 6-55 Specimen moderately ictericPROTHROMBIN [id number] 06:00:00 Test Item Value Reference Range Comments PROTIME (BEAKER) (test swuw=304) 36.7 seconds 11.7-14.7 INR (BEAKER) (test xmbe=479) 3.7 <=5.9 RECOMMENDED COUMADIN/WARFARIN INR THERAPY RANGESSTANDARD DOSE: 2.0 - 3.0 Includes: PROPHYLAXIS forvenous thrombosis, systemic embolization; TREATMENT for venous thrombosis and/or pulmonary embolus.HIGH RISK: Target INR is 2.5-3.5 for patients with mechanical heart valves.BODY FLUID CULTURE + GRAM [id number] 00:51:00 Test Item Value Reference Range Comments CULTURE (BEAKER) (test cqsa=6496) No growth GRAM STAIN RESULT (BEAKER) (test 3+ WBCs jxjz=2710) GRAM STAIN RESULT (BEAKER) (test No organisms seen vrur=67604) BLOOD [id number] 17:08:00 Test Item Value Reference Range Comments CULTURE (BEAKER) (test mvmh=6332) No growth in 5 days BLOOD [id number] 17:06:00 Test Item Value Reference Range Comments CULTURE (BEAKER) (test nnuh=4749) No growth in 5 days CBC W/PLT COUNT & AUTO [id number] 07:05:00 Test Item Value Reference Range Comments WHITE BLOOD CELL COUNT (BEAKER) (test rfec=248) 3.5 K/ L 4.0-10.0 RED BLOOD CELL COUNT (BEAKER) (test lofm=887) 2.16 M/ L 4.20-5.80 HEMOGLOBIN (BEAKER) (test iysy=658) 7.8 GM/DL 13.0-16.8 HEMATOCRIT (BEAKER) (test okfq=833) 23.9 % 40.0-50.0 MEAN CORPUSCULAR VOLUME (BEAKER) (test wghv=543) 111.0 fL 82.0-98.0 MEAN CORPUSCULAR HEMOGLOBIN (BEAKER) (test 36.3 pg 27.0-33.0 bant=230) MEAN CORPUSCULAR HEMOGLOBIN CONC (BEAKER) (test 32.8 GM/DL 32.0-36.0 gjve=900) RED CELL DISTRIBUTION WIDTH (BEAKER) (test 13.9 % 10.3-14.2 ndau=585) PLATELET COUNT (BEAKER) (test zsyg=354) 72 K/CU MM 150-430 MEAN PLATELET VOLUME (BEAKER) (test pcxn=686) 6.4 fL 6.5-10.5 NUCLEATED RED BLOOD CELLS (BEAKER) (test 0 /100 WBC 0-0 oimz=700) NEUTROPHILS RELATIVE PERCENT (BEAKER) (test 51 % njsb=343) LYMPHOCYTES RELATIVE PERCENT (BEAKER) (test 25 % sria=842) MONOCYTES RELATIVE PERCENT (BEAKER) (test 18 % zcit=623) EOSINOPHILS RELATIVE PERCENT (BEAKER) (test 6 % vpct=083) BASOPHILS RELATIVE PERCENT (BEAKER) (test 0 % dnaf=880) NEUTROPHILS ABSOLUTE COUNT (BEAKER) (test 1.77 K/ L 1.80-8.00 qwtw=077) LYMPHOCYTES ABSOLUTE COUNT (BEAKER) (test 0.87 K/ L 1.48-4.50 xfqg=177) MONOCYTES ABSOLUTE COUNT (BEAKER) (test rccn=720) 0.62 K/ L 0.00-1.30 EOSINOPHILS ABSOLUTE COUNT (BEAKER) (test 0.22 K/ L 0.00-0.50 dzvu=167) BASOPHILS ABSOLUTE COUNT (BEAKER) (test asbm=060) 0.01 K/ L 0.00-0.20 0.00BASIC METABOLIC [id number] 06:54:00 Test Item Value Reference Range Comments SODIUM (BEAKER) (test 137 meq/L 136-145 duly=605) POTASSIUM (BEAKER) (test 3.8 meq/L 3.5-5.1 ajhb=307) CHLORIDE (BEAKER) (test 109 meq/L 98-107 mkzq=268) CO2 (BEAKER) (test 21 meq/L 22-29 rwuy=052) BLOOD UREA NITROGEN 17 mg/dL 7-21 (BEAKER) (test rbtx=518) CREATININE (BEAKER) (test 1.60 mg/dL 0.57-1.25 dpad=494) GLUCOSE RANDOM (BEAKER) 76 mg/dL 70-105 (test ljxk=780) CALCIUM (BEAKER) (test 7.5 mg/dL 8.4-10.2 qjxg=165) EGFR (BEAKER) (test 46 mL/min/1.73 sq m ESTIMATED GFR IS NOT zdev=8248) ACCURATE CREATININE CLEARANCE IN PREDICTING GLOMERULAR FILTRATION RATE. ESTIMATED GFR IS NOT APPLICABLE FOR DIALYSIS PATIENTS. Specimen moderately ictericHEPATIC FUNCTION [id number] 06:53:00 Test Item Value Reference Range Comments TOTAL PROTEIN (BEAKER) (test bkvt=176) 5.6 gm/dL 6.0-8.3 ALBUMIN (BEAKER) (test suso=1877) 2.4 g/dL 3.5-5.0 BILIRUBIN TOTAL (BEAKER) (test beuc=077) 4.5 mg/dL 0.2-1.2 BILIRUBIN DIRECT (BEAKER) (test zkus=199) 2.7 mg/dL 0.1-0.5 ALKALINE PHOSPHATASE (BEAKER) (test eaqq=599) 74 U/L 40-150 AST (SGOT) (BEAKER) (test uzwl=402) 36 U/L 5-34 ALT (SGPT) (BEAKER) (test vxhb=823) 13 U/L 6-55 Specimen moderately ictericB-TYPE NATRIURETIC FACTOR (BNP)[id number] 06:52:00 Test Item Value Reference Range Comments B-TYPE NATRIURETIC PEPTIDE (BEAKER) (test 446 pg/mL 0-100 ukth=651) PROTHROMBIN [id number] 06:36:00 Test Item Value Reference Range Comments PROTIME (BEAKER) (test dyxi=622) 28.7 seconds 11.7-14.7 INR (BEAKER) (test vhyc=590) 2.7 <=5.9 RECOMMENDED COUMADIN/WARFARIN INR THERAPY RANGESSTANDARD DOSE: 2.0 - 3.0 Includes: PROPHYLAXIS forvenous thrombosis, systemic embolization; TREATMENT for venous thrombosis and/or pulmonary embolus.HIGH RISK: Target INR is 2.5-3.5 for patients with mechanical heart valves.EOSINOPHIL SMEAR, [id number] 21: 44:00 Test Item Value Reference Range Comments EOSINOPHIL SMEAR, URINE (BEAKER) (test No EOS seen No EOS seen vrwt=4708) CREATININE, RANDOM [id number] 18:02:00 Test Item Value Reference Range Comments CREATININE URINE (BEAKER) (test djgd=182) 96.3 mg/dL Reference Range: No NormalsSODIUM, RANDOM [id number] 18:02:00 Test Item Value Reference Range Comments SODIUM URINE (BEAKER) (test oqdi=400) 58 meq/L Reference Range: No NormalsURINALYSIS W/ [id number] 17:33:00 Test Item Value Reference Range Comments COLOR (BEAKER) (test mfdu=972) Yellow CLARITY (BEAKER) (test hfyi=916) Clear SPECIFIC GRAVITY UA (BEAKER) (test blfj=313) 1.009 1.001-1.035 PH UA (BEAKER) (test sssq=576) 6.0 5.0-8.0 PROTEIN UA (BEAKER) (test ecvl=821) Negative Negative GLUCOSE UA (BEAKER) (test lddo=901) Negative Negative KETONES UA (BEAKER) (test hyhr=528) Negative Negative BILIRUBIN UA (BEAKER) (test qkym=552) Negative Negative BLOOD UA (BEAKER) (test hhna=746) Negative Negative NITRITE UA (BEAKER) (test cowf=409) Negative Negative LEUKOCYTE ESTERASE UA (BEAKER) (test jblt=959) Negative Negative UROBILINOGEN UA (BEAKER) (test fria=609) 4.0 mg/dL 0.2-1.0 RBC UA (BEAKER) (test mtgd=960) < /HPF WBC UA (BEAKER) (test qlht=476) 2 /HPF BACTERIA (BEAKER) (test tzpy=249) Rare SOURCE(BEAKER) (test fojc=4592) CBC W/PLT COUNT & AUTO [id number] 06:53:00 Test Item Value Reference Range Comments WHITE BLOOD CELL COUNT (BEAKER) (test dbyr=851) 3.5 K/ L 4.0-10.0 RED BLOOD CELL COUNT (BEAKER) (test ihhv=588) 2.17 M/ L 4.20-5.80 HEMOGLOBIN (BEAKER) (test qzgn=242) 7.9 GM/DL 13.0-16.8 HEMATOCRIT (BEAKER) (test zxqy=810) 23.9 % 40.0-50.0 MEAN CORPUSCULAR VOLUME (BEAKER) (test tztg=563) 110.0 fL 82.0-98.0 MEAN CORPUSCULAR HEMOGLOBIN (BEAKER) (test 36.1 pg 27.0-33.0 azrx=088) MEAN CORPUSCULAR HEMOGLOBIN CONC (BEAKER) (test 32.9 GM/DL 32.0-36.0 udth=856) RED CELL DISTRIBUTION WIDTH (BEAKER) (test 14.0 % 10.3-14.2 crhm=410) PLATELET COUNT (BEAKER) (test ogvn=919) 77 K/CU MM 150-430 MEAN PLATELET VOLUME (BEAKER) (test mhay=801) 6.1 fL 6.5-10.5 NUCLEATED RED BLOOD CELLS (BEAKER) (test 0 /100 WBC 0-0 rvlj=987) NEUTROPHILS RELATIVE PERCENT (BEAKER) (test 56 % nfcg=057) LYMPHOCYTES RELATIVE PERCENT (BEAKER) (test 20 % fske=494) MONOCYTES RELATIVE PERCENT (BEAKER) (test 18 % klgv=985) EOSINOPHILS RELATIVE PERCENT (BEAKER) (test 6 % fmfs=451) BASOPHILS RELATIVE PERCENT (BEAKER) (test 1 % vmak=831) NEUTROPHILS ABSOLUTE COUNT (BEAKER) (test 1.95 K/ L 1.80-8.00 tvsr=672) LYMPHOCYTES ABSOLUTE COUNT (BEAKER) (test 0.69 K/ L 1.48-4.50 pvbk=667) MONOCYTES ABSOLUTE COUNT (BEAKER) (test eijx=016) 0.62 K/ L 0.00-1.30 EOSINOPHILS ABSOLUTE COUNT (BEAKER) (test 0.20 K/ L 0.00-0.50 dpii=512) BASOPHILS ABSOLUTE COUNT (BEAKER) (test jvsf=877) 0.03 K/ L 0.00-0.20 0.00BASI METABOLIC [id number] 06:45:00 Test Item Value Reference Range Comments SODIUM (BEAKER) (test 134 meq/L 136-145 frml=982) POTASSIUM (BEAKER) (test 3.6 meq/L 3.5-5.1 qoht=429) CHLORIDE (BEAKER) (test 106 meq/L 98-107 gilu=669) CO2 (BEAKER) (test 21 meq/L 22-29 qwvq=652) BLOOD UREA NITROGEN 14 mg/dL 7-21 (BEAKER) (test upae=948) CREATININE (BEAKER) (test 1.33 mg/dL 0.57-1.25 gsmt=063) GLUCOSE RANDOM (BEAKER) 71 mg/dL 70-105 (test dust=218) CALCIUM (BEAKER) (test 7.6 mg/dL 8.4-10.2 eatp=714) EGFR (BEAKER) (test 57 mL/min/1.73 sq m ESTIMATED GFR IS NOT ovsj=3520) ACCURATE CREATININE CLEARANCE IN PREDICTING GLOMERULAR FILTRATION RATE. ESTIMATED GFR IS NOT APPLICABLE FOR DIALYSIS PATIENTS. Specimen moderately ictericHEPATIC FUNCTION [id number] 06:40:00 Test Item Value Reference Range Comments TOTAL PROTEIN (BEAKER) (test mchx=102) 5.6 gm/dL 6.0-8.3 ALBUMIN (BEAKER) (test xtzq=4438) 2.1 g/dL 3.5-5.0 BILIRUBIN TOTAL (BEAKER) (test zavp=795) 4.4 mg/dL 0.2-1.2 BILIRUBIN DIRECT (BEAKER) (test nyaz=371) 2.9 mg/dL 0.1-0.5 ALKALINE PHOSPHATASE (BEAKER) (test caee=923) 86 U/L 40-150 AST (SGOT) (BEAKER) (test xkuv=368) 45 U/L 5-34 ALT (SGPT) (BEAKER) (test vzel=459) 13 U/L 6-55 Specimen moderately ictericPROTHROMBIN [id number] 06:05:00 Test Item Value Reference Range Comments PROTIME (BEAKER) (test jbbb=944) 29.4 seconds 11.7-14.7 INR (BEAKER) (test drtf=215) 2.8 <=5.9 RECOMMENDED COUMADIN/WARFARIN INR THERAPY RANGESSTANDARD DOSE: 2.0 - 3.0 Includes: PROPHYLAXIS forvenous thrombosis, systemic embolization; TREATMENT for venous thrombosis and/or pulmonary embolus.HIGH RISK: Target INR is 2.5-3.5 for patients with mechanical heart valves.BODY FLUID CELL COUNT WITH [id number] 20:51:00 Test Item Value Reference Range Comments APPEARANCE FLUID (BEAKER) (test wqrf=920) Slightly Hazy Clear COLOR FLUID (BEAKER) (test zmpi=369) Yellow Colorless, Straw RBC FLUID (BEAKER) (test svzv=829) 545 /cu mm <=1 ADJUSTED WBC FLUID (BEAKER) (test vzmw=6668) 104 /cu mm <=5 LINING CELLS (BEAKER) (test zaky=9859) 1 /cu mm <=1 NEUTROPHILS FLUID (BEAKER) (test hejy=8378) 3 % LYMPHS FLUID (BEAKER) (test migf=479) 13 % MONO/MACROPHAGE FLUID (BEAKER) (test 84 % epws=327) EOSINOPHILS FLUID (BEAKER) (test ajgz=586) 0 % BASO FLUID (BEAKER) (test sipn=613) 0 % CONTAINER BODY FLUID (BEAKER) (test EDTA Tube qhfe=4312) POCT-GLUCOSE [id number] 18:48:00 Test Item Value Reference Range Comments POC-GLUCOSE METER (BEAKER) 105 mg/dL 70-110 TESTED AT [facility] [address] [facility] (test eviv=6475) [facility] [id number] BASIC METABOLIC [id number] 05:45:00 Test Item Value Reference Range Comments SODIUM (BEAKER) (test 133 meq/L 136-145 rlpn=456) POTASSIUM (BEAKER) (test 4.3 meq/L 3.5-5.1 Specimen moderately xvpk=118) hemolyzed CHLORIDE (BEAKER) (test 107 meq/L 98-107 qqho=693) CO2 (BEAKER) (test 19 meq/L 22-29 tlgc=541) BLOOD UREA NITROGEN 10 mg/dL 7-21 (BEAKER) (test jjoz=431) CREATININE (BEAKER) (test 0.86 mg/dL 0.57-1.25 Specimen moderately purh=296) hemolyzed GLUCOSE RANDOM (BEAKER) 68 mg/dL 70-105 (test teym=346) CALCIUM (BEAKER) (test 7.5 mg/dL 8.4-10.2 lnnn=353) EGFR (BEAKER) (test 94 mL/min/1.73 sq m ESTIMATED GFR IS NOT lfod=7410) ACCURATE CREATININE CLEARANCE IN PREDICTING GLOMERULAR FILTRATION RATE. ESTIMATED GFR IS NOT APPLICABLE FOR DIALYSIS PATIENTS. Specimen slightly ictericHEPATIC FUNCTION [id number] 05:45:00 Test Item Value Reference Range Comments TOTAL PROTEIN (BEAKER) (test 5.9 gm/dL 6.0-8.3 Specimen moderately hemolyzed ekhb=573) ALBUMIN (BEAKER) (test 1.9 g/dL 3.5-5.0 Specimen moderately hemolyzed uxlw=5564) BILIRUBIN TOTAL (BEAKER) (test 4.4 mg/dL 0.2-1.2 Specimen moderately hemolyzed ceij=380) BILIRUBIN DIRECT (BEAKER) 2.6 mg/dL 0.1-0.5 Specimen moderately hemolyzed (test spby=220) ALKALINE PHOSPHATASE (BEAKER) 86 U/L 40-150 (test kkym=598) AST (SGOT) (BEAKER) (test 74 U/L 5-34 Specimen moderately hemolyzed ztyw=378) ALT (SGPT) (BEAKER) (test 17 U/L 6-55 Specimen moderately ohtq=280) hemolyzed Specimen slightly ictericCBC W/PLT COUNT & AUTO [id number] 05:21 :00 Test Item Value Reference Range Comments WHITE BLOOD CELL COUNT (BEAKER) (test ovhq=450) 3.5 K/ L 4.0-10.0 RED BLOOD CELL COUNT (BEAKER) (test iipk=504) 2.06 M/ L 4.20-5.80 HEMOGLOBIN (BEAKER) (test kedi=622) 7.9 GM/DL 13.0-16.8 HEMATOCRIT (BEAKER) (test mdbq=215) 22.8 % 40.0-50.0 MEAN CORPUSCULAR VOLUME (BEAKER) (test slkf=169) 110.0 fL 82.0-98.0 MEAN CORPUSCULAR HEMOGLOBIN (BEAKER) (test 38.2 pg 27.0-33.0 swbo=091) MEAN CORPUSCULAR HEMOGLOBIN CONC (BEAKER) (test 34.6 GM/DL 32.0-36.0 ecah=706) RED CELL DISTRIBUTION WIDTH (BEAKER) (test 13.5 % 10.3-14.2 dwlq=606) PLATELET COUNT (BEAKER) (test eyuo=667) 61 K/CU MM 150-430 MEAN PLATELET VOLUME (BEAKER) (test lqqa=022) 6.8 fL 6.5-10.5 NUCLEATED RED BLOOD CELLS (BEAKER) (test 0 /100 WBC 0-0 lxcj=616) NEUTROPHILS RELATIVE PERCENT (BEAKER) (test 51 % cntl=886) LYMPHOCYTES RELATIVE PERCENT (BEAKER) (test 24 % taur=964) MONOCYTES RELATIVE PERCENT (BEAKER) (test 18 % dtio=688) EOSINOPHILS RELATIVE PERCENT (BEAKER) (test 7 % czvr=493) BASOPHILS RELATIVE PERCENT (BEAKER) (test 1 % rxnv=102) NEUTROPHILS ABSOLUTE COUNT (BEAKER) (test 1.76 K/ L 1.80-8.00 slnf=838) LYMPHOCYTES ABSOLUTE COUNT (BEAKER) (test 0.85 K/ L 1.48-4.50 lnjd=222) MONOCYTES ABSOLUTE COUNT (BEAKER) (test ftbc=631) 0.61 K/ L 0.00-1.30 EOSINOPHILS ABSOLUTE COUNT (BEAKER) (test 0.23 K/ L 0.00-0.50 ijoc=456) BASOPHILS ABSOLUTE COUNT (BEAKER) (test uioh=618) 0.02 K/ L 0.00-0.20 0.00PROTHROMBIN [id number] 05:19:00 Test Item Value Reference Range Comments PROTIME (BEAKER) (test lpee=359) 28.2 seconds 11.7-14.7 INR (BEAKER) (test txru=021) 2.6 <=5.9 RECOMMENDED COUMADIN/WARFARIN INR THERAPY RANGESSTANDARD DOSE: 2.0 - 3.0 Includes: PROPHYLAXIS forvenous thrombosis, systemic embolization; TREATMENT for venous thrombosis and/or pulmonary embolus.HIGH RISK: Target INR is 2.5-3.5 for patients with mechanical heart valves.BODY FLUID CULTURE + GRAM [id number] 14:14:00 Test Item Value Reference Range Comments CULTURE (BEAKER) (test frfg=6633) No growth GRAM STAIN RESULT (BEAKER) (test 2+ WBCs ohrk=3835) GRAM STAIN RESULT (BEAKER) (test No organisms seen pheh=76241) CBC W/PLT COUNT & AUTO [id number] 10:28:00 Test Item Value Reference Range Comments WHITE BLOOD CELL COUNT (BEAKER) (test juzi=003) 3.6 K/ L 4.0-10.0 RED BLOOD CELL COUNT (BEAKER) (test tbgj=373) 2.17 M/ L 4.20-5.80 HEMOGLOBIN (BEAKER) (test nnbg=782) 7.7 GM/DL 13.0-16.8 HEMATOCRIT (BEAKER) (test crex=044) 23.8 % 40.0-50.0 MEAN CORPUSCULAR VOLUME (BEAKER) (test gwbi=794) 110.0 fL 82.0-98.0 MEAN CORPUSCULAR HEMOGLOBIN (BEAKER) (test 35.3 pg 27.0-33.0 ppet=953) MEAN CORPUSCULAR HEMOGLOBIN CONC (BEAKER) (test 32.1 GM/DL 32.0-36.0 wkee=177) RED CELL DISTRIBUTION WIDTH (BEAKER) (test 13.7 % 10.3-14.2 vrlr=933) PLATELET COUNT (BEAKER) (test xgpq=374) 62 K/CU MM 150-430 MEAN PLATELET VOLUME (BEAKER) (test wwhf=886) 6.5 fL 6.5-10.5 NUCLEATED RED BLOOD CELLS (BEAKER) (test 0 /100 WBC 0-0 hxfz=819) NEUTROPHILS RELATIVE PERCENT (BEAKER) (test 58 % rjcz=575) LYMPHOCYTES RELATIVE PERCENT (BEAKER) (test 18 % risd=851) MONOCYTES RELATIVE PERCENT (BEAKER) (test 17 % bmjx=221) EOSINOPHILS RELATIVE PERCENT (BEAKER) (test 8 % cfse=816) BASOPHILS RELATIVE PERCENT (BEAKER) (test 0 % wfff=014) NEUTROPHILS ABSOLUTE COUNT (BEAKER) (test 2.10 K/ L 1.80-8.00 zhle=746) LYMPHOCYTES ABSOLUTE COUNT (BEAKER) (test 0.63 K/ L 1.48-4.50 ptfd=955) MONOCYTES ABSOLUTE COUNT (BEAKER) (test esyv=916) 0.59 K/ L 0.00-1.30 EOSINOPHILS ABSOLUTE COUNT (BEAKER) (test 0.28 K/ L 0.00-0.50 reol=649) BASOPHILS ABSOLUTE COUNT (BEAKER) (test xtju=973) 0.00 K/ L 0.00-0.20 [id number] 10:16:00 Test Item Value Reference Range Comments PROCALCITONIN (BEAKER) (test lkdi=0972) < ng/mL <0.05 SEPSIS RISK (ng/mL)Low: 0.05-0.50Intermediate: 0.51-2.00High: & gt;=2.01HEPATIC FUNCTION [id number] 06:26:00 Test Item Value Reference Range Comments TOTAL PROTEIN (BEAKER) (test ingv=029) 5.6 gm/dL 6.0-8.3 ALBUMIN (BEAKER) (test eowd=5393) 1.9 g/dL 3.5-5.0 BILIRUBIN TOTAL (BEAKER) (test wabd=549) 4.7 mg/dL 0.2-1.2 BILIRUBIN DIRECT (BEAKER) (test wnht=211) 2.9 mg/dL 0.1-0.5 ALKALINE PHOSPHATASE (BEAKER) (test pvjg=688) 85 U/L 40-150 AST (SGOT) (BEAKER) (test chuj=665) 53 U/L 5-34 ALT (SGPT) (BEAKER) (test dgdv=956) 14 U/L 6-55 Specimen moderately ictericBASIC METABOLIC [id number] 06:26:00 Test Item Value Reference Range Comments SODIUM (BEAKER) (test 134 meq/L 136-145 buhn=557) POTASSIUM (BEAKER) (test 3.8 meq/L 3.5-5.1 pduf=420) CHLORIDE (BEAKER) (test 107 meq/L 98-107 qvbe=978) CO2 (BEAKER) (test 19 meq/L 22-29 etqk=855) BLOOD UREA NITROGEN 8 mg/dL 7-21 (BEAKER) (test wjjx=295) CREATININE (BEAKER) (test 0.73 mg/dL 0.57-1.25 jfhp=667) GLUCOSE RANDOM (BEAKER) 73 mg/dL 70-105 (test jict=471) CALCIUM (BEAKER) (test 7.2 mg/dL 8.4-10.2 usbg=032) EGFR (BEAKER) (test 113 mL/min/1.73 sq m ESTIMATED GFR IS NOT spkk=5846) ACCURATE CREATININE CLEARANCE IN PREDICTING GLOMERULAR FILTRATION RATE. ESTIMATED GFR IS NOT APPLICABLE FOR DIALYSIS PATIENTS. Specimen moderately ictericPROTHROMBIN [id number] 06:05:00 Test Item Value Reference Range Comments PROTIME (BEAKER) (test tpgc=836) 30.9 seconds 11.7-14.7 INR (BEAKER) (test mqqd=832) 3.0 <=5.9 RECOMMENDED COUMADIN/WARFARIN INR THERAPY RANGESSTANDARD DOSE: 2.0 - 3.0 Includes: PROPHYLAXIS forvenous thrombosis, systemic embolization; TREATMENT for venous thrombosis and/or pulmonary embolus.HIGH RISK: Target INR is 2.5-3.5 for patients with mechanical heart valves.[id number] 05:54:00 Test Item Value Reference Range Comments PREALBUMIN (BEAKER) (test kzph=905) < mg/dL 14-45 URINE [id number] 12:11:00 Test Item Value Reference Range Comments CULTURE (BEAKER) (test tkvl=1248) No growth VANCOMYCIN LEVEL, [id number] 09:26:00 Test Item Value Reference Range Comments VANCOMYCIN TROUGH (BEAKER) (test nasn=707) 15.3 ug/mL 10.0-20.0 HEPATIC FUNCTION [id number] 06:17:00 Test Item Value Reference Range Comments TOTAL PROTEIN (BEAKER) (test xogn=229) 5.6 gm/dL 6.0-8.3 ALBUMIN (BEAKER) (test iwpj=4704) 2.0 g/dL 3.5-5.0 BILIRUBIN TOTAL (BEAKER) (test xlns=858) 4.2 mg/dL 0.2-1.2 BILIRUBIN DIRECT (BEAKER) (test auqa=921) 2.7 mg/dL 0.1-0.5 ALKALINE PHOSPHATASE (BEAKER) (test gtyu=133) 98 U/L 40-150 AST (SGOT) (BEAKER) (test vjkr=643) 45 U/L 5-34 ALT (SGPT) (BEAKER) (test cenm=040) 12 U/L 6-55 Specimen slightly ictericBASIC METABOLIC [id number] 06:17:00 Test Item Value Reference Range Comments SODIUM (BEAKER) (test 133 meq/L 136-145 qhkz=957) POTASSIUM (BEAKER) (test 3.4 meq/L 3.5-5.1 dyny=408) CHLORIDE (BEAKER) (test 107 meq/L 98-107 nqml=297) CO2 (BEAKER) (test 22 meq/L 22-29 hewj=197) BLOOD UREA NITROGEN 7 mg/dL 7-21 (BEAKER) (test bkun=550) CREATININE (BEAKER) (test 0.73 mg/dL 0.57-1.25 oaev=493) GLUCOSE RANDOM (BEAKER) 87 mg/dL 70-105 (test fujo=828) CALCIUM (BEAKER) (test 7.2 mg/dL 8.4-10.2 tjvs=525) EGFR (BEAKER) (test 113 mL/min/1.73 sq m ESTIMATED GFR IS NOT nmda=2358) ACCURATE CREATININE CLEARANCE IN PREDICTING GLOMERULAR FILTRATION RATE. ESTIMATED GFR IS NOT APPLICABLE FOR DIALYSIS PATIENTS. Specimen slightly ictericPROTHROMBIN [id number] 06:04:00 Test Item Value Reference Range Comments PROTIME (BEAKER) (test zxlf=356) 31.7 seconds 11.7-14.7 INR (BEAKER) (test ljxe=975) 3.0 <=5.9 RECOMMENDED COUMADIN/WARFARIN INR THERAPY RANGESSTANDARD DOSE: 2.0 - 3.0 Includes: PROPHYLAXIS forvenous thrombosis, systemic embolization; TREATMENT for venous thrombosis and/or pulmonary embolus.HIGH RISK: Target INR is 2.5-3.5 for patients with mechanical heart valves.VITAMIN B12 AND [id number] 19:36 :00 Test Item Value Reference Range Comments VITAMIN B12 (BEAKER) (test mhrd=396) 1121 pg/mL 213-816 FOLATE (BEAKER) (test irld=999) 18.3 ng/mL >=7.0 Effective 09/13/2014: Folate Reference Range ChangeNew: >=7.0 Previous: & gt;=5.4VITAMIN B12 AND [id number] 14:57:00 Test Item Value Reference Range Comments VITAMIN B12 (BEAKER) (test skhn=727) 1325 pg/mL 213-816 FOLATE (BEAKER) (test xubf=397) 8.3 ng/mL >=7.0 Effective 09/13/2014: Folate Reference Range ChangeNew: >=7.0 Previous: & gt;=5.4ANTI-NUCLEAR ANTIBODY (CHERYL)2017-02-03 13:56:00 Test Item Value Reference Range Comments ANTI-NUCLEAR ANTIBODY (CHERYL) (BEAKER) (test Negative Negative zmok=908) HEPATITIS B CORE ANTIBODY, [id number] 12:27:00 Test Item Value Reference Range Comments HEPATITIS B CORE TOTAL ANTIBODY (BEAKER) (test Nonreactive Nonreactive shnb=866) CRYPTOCOCCAL [id number] 11:25:00 Test Item Value Reference Range Comments CRYPTOCOCCAL ANTIGEN, SERUM (BEAKER) (test Negative Negative, Interference mrie=8282) HEPATITIS B SURFACE [id number] 11:15:00 Test Item Value Reference Range Comments HEPATITIS B SURFACE ANTIBODY (BEAKER) (test < mIU/mL <8.0 lxhn=487) HEPATITIS B SURFACE [id number] 09:53:00 Test Item Value Reference Range Comments HEPATITIS B SURFACE ANTIGEN (2) (BEAKER) (test Nonreactive Nonreactive odys=7136) HIV-1 ANTIGEN WITH HIV-1/2 [id number] 09:53:00 Test Item Value Reference Range Comments HIV-1 ANTIGEN WITH HIV 1\\T\\2 ANTIBODY (2) Nonreactive Nonreactive (BEAKER) (test wqzg=5417) HEPATIC FUNCTION [id number] 07:01:00 Test Item Value Reference Range Comments TOTAL PROTEIN (BEAKER) (test lswk=226) 5.5 gm/dL 6.0-8.3 ALBUMIN (BEAKER) (test iqbu=3555) 2.0 g/dL 3.5-5.0 BILIRUBIN TOTAL (BEAKER) (test coxh=204) 3.8 mg/dL 0.2-1.2 BILIRUBIN DIRECT (BEAKER) (test qdzg=570) 2.5 mg/dL 0.1-0.5 ALKALINE PHOSPHATASE (BEAKER) (test qtvy=642) 108 U/L 40-150 AST (SGOT) (BEAKER) (test yhvr=408) 40 U/L 5-34 ALT (SGPT) (BEAKER) (test flhx=269) 10 U/L 6-55 Specimen slightly ictericBASIC METABOLIC [id number] 07:01:00 Test Item Value Reference Range Comments SODIUM (BEAKER) (test 133 meq/L 136-145 tjfx=273) POTASSIUM (BEAKER) (test 3.7 meq/L 3.5-5.1 jtft=438) CHLORIDE (BEAKER) (test 108 meq/L 98-107 xvcp=084) CO2 (BEAKER) (test 20 meq/L 22-29 inqi=987) BLOOD UREA NITROGEN 7 mg/dL 7-21 (BEAKER) (test xykd=697) CREATININE (BEAKER) (test 0.76 mg/dL 0.57-1.25 mijr=766) GLUCOSE RANDOM (BEAKER) 100 mg/dL 70-105 (test pfss=601) CALCIUM (BEAKER) (test 7.3 mg/dL 8.4-10.2 nuzy=537) EGFR (BEAKER) (test 108 mL/min/1.73 sq m ESTIMATED GFR IS NOT xidt=5980) ACCURATE CREATININE CLEARANCE IN PREDICTING GLOMERULAR FILTRATION RATE. ESTIMATED GFR IS NOT APPLICABLE FOR DIALYSIS PATIENTS. Specimen slightly ictericCBC W/PLT COUNT & AUTO [id number] 06:53 :00 Test Item Value Reference Range Comments WHITE BLOOD CELL COUNT (BEAKER) (test fokn=656) 3.5 K/ L 4.0-10.0 RED BLOOD CELL COUNT (BEAKER) (test tpyv=290) 1.83 M/ L 4.20-5.80 HEMOGLOBIN (BEAKER) (test wtud=163) 7.3 GM/DL 13.0-16.8 HEMATOCRIT (BEAKER) (test cyew=219) 19.9 % 40.0-50.0 MEAN CORPUSCULAR VOLUME (BEAKER) (test vmst=150) 109.0 fL 82.0-98.0 MEAN CORPUSCULAR HEMOGLOBIN (BEAKER) (test 39.9 pg 27.0-33.0 chfy=907) MEAN CORPUSCULAR HEMOGLOBIN CONC (BEAKER) (test 36.6 GM/DL 32.0-36.0 ghgz=757) RED CELL DISTRIBUTION WIDTH (BEAKER) (test 14.3 % 10.3-14.2 mwvo=255) PLATELET COUNT (BEAKER) (test rtdy=943) 35 K/CU MM 150-430 MEAN PLATELET VOLUME (BEAKER) (test htww=157) 6.6 fL 6.5-10.5 NUCLEATED RED BLOOD CELLS (BEAKER) (test 0 /100 WBC 0-0 wdov=474) NEUTROPHILS RELATIVE PERCENT (BEAKER) (test 60 % mtha=905) LYMPHOCYTES RELATIVE PERCENT (BEAKER) (test 18 % tska=050) MONOCYTES RELATIVE PERCENT (BEAKER) (test 17 % mirx=545) EOSINOPHILS RELATIVE PERCENT (BEAKER) (test 6 % pfgz=932) BASOPHILS RELATIVE PERCENT (BEAKER) (test 0 % wbrh=082) NEUTROPHILS ABSOLUTE COUNT (BEAKER) (test 2.06 K/ L 1.80-8.00 hyvo=139) LYMPHOCYTES ABSOLUTE COUNT (BEAKER) (test 0.61 K/ L 1.48-4.50 fsoe=179) MONOCYTES ABSOLUTE COUNT (BEAKER) (test hyyh=754) 0.58 K/ L 0.00-1.30 EOSINOPHILS ABSOLUTE COUNT (BEAKER) (test 0.19 K/ L 0.00-0.50 vswc=891) BASOPHILS ABSOLUTE COUNT (BEAKER) (test eyjd=403) 0.01 K/ L 0.00-0.20 0.00PROTHROMBIN [id number] 06:39:00 Test Item Value Reference Range Comments PROTIME (BEAKER) (test hdnt=817) 30.6 seconds 11.7-14.7 INR (BEAKER) (test ujvc=770) 2.9 <=5.9 RECOMMENDED COUMADIN/WARFARIN INR THERAPY RANGESSTANDARD DOSE: 2.0 - 3.0 Includes: PROPHYLAXIS forvenous thrombosis, systemic embolization; TREATMENT for venous thrombosis and/or pulmonary embolus.HIGH RISK: Target INR is 2.5-3.5 for patients with mechanical heart valves.URINALYSIS W/ [id number] 16 :58:00 Test Item Value Reference Range Comments COLOR (BEAKER) (test mfak=713) Yellow CLARITY (BEAKER) (test eaaa=957) Clear SPECIFIC GRAVITY UA (BEAKER) (test 1.025 1.001-1.035 vqgr=910) PH UA (BEAKER) (test zrhn=895) 7.0 5.0-8.0 PROTEIN UA (BEAKER) (test joam=315) Negative Negative GLUCOSE UA (BEAKER) (test xcgf=477) Negative Negative KETONES UA (BEAKER) (test oeqw=091) Negative Negative BILIRUBIN UA (BEAKER) (test bdwu=180) Positive Negative BLOOD UA (BEAKER) (test zpwu=069) Negative Negative NITRITE UA (BEAKER) (test jpzq=969) Negative Negative LEUKOCYTE ESTERASE UA (BEAKER) (test Negative Negative kfix=727) UROBILINOGEN UA (BEAKER) (test kkhp=345) 8.0 mg/dL 0.2-1.0 RBC UA (BEAKER) (test qken=962) 0 /HPF WBC UA (BEAKER) (test ygtr=785) 2 /HPF MUCUS (BEAKER) (test obur=1480) Rare HYALINE CASTS (BEAKER) (test aovs=595) 3 /LPF SOURCE(BEAKER) (test jdym=2313) Urine, Clean Catch [id number] 13:32:00 Test Item Value Reference Range Comments FERRITIN (BEAKER) (test mwsv=938) 116 ng/mL 5-275 Effective 09/13/2014: Reference Range ChangeNew: Male 5-275 Previous: Male 22-322 Female 5-275 Female 10-291HEPATITIS A ANTIBODY, [id number] 13:19:00 Test Item Value Reference Range Comments HEPATITIS A IGG ANTIBODY (BEAKER) (test xacr=0048) Reactive Nonreactive ALPHA FETOPROTEIN (AFP), TUMOR [id number] 13:17:00 Test Item Value Reference Range Comments ALPHA-FETOPROTEIN (BEAKER) (test zlks=6132) 4.5 ng/mL <10.0 Effective 09/13/2014: Reference Range ChangeNew: <10.0 Previous: 0.0- 8.0HEPATITIS C [id number] 13:17:00 Test Item Value Reference Range Comments HEPATITIS C ANTIBODY (BEAKER) (test bmlk=416) Nonreactive Nonreactive BODY FLUID CELL COUNT WITH [id number] 13:03:00 Test Item Value Reference Range Comments APPEARANCE FLUID (BEAKER) (test gxin=396) Cloudy Clear COLOR FLUID (BEAKER) (test bibn=252) Yellow Colorless, Straw RBC FLUID (BEAKER) (test alck=915) 1519 /cu mm <=1 ADJUSTED WBC FLUID (BEAKER) (test kznx=8785) 108 /cu mm <=5 LINING CELLS (BEAKER) (test dduw=2794) 14 /cu mm <=1 NEUTROPHILS FLUID (BEAKER) (test gpbh=7635) 11 % LYMPHS FLUID (BEAKER) (test xpgl=058) 30 % MONO/MACROPHAGE FLUID (BEAKER) (test zkrx=727) 59 % EOSINOPHILS FLUID (BEAKER) (test fxwy=688) 0 % BASO FLUID (BEAKER) (test bmbr=457) 0 % CONTAINER BODY FLUID (BEAKER) (test ntou=2346) EDTA Tube BASIC METABOLIC [id number] 12:56:00 Test Item Value Reference Range Comments SODIUM (BEAKER) (test 131 meq/L 136-145 hwma=230) POTASSIUM (BEAKER) (test 4.0 meq/L 3.5-5.1 Specimen moderately dkkz=778) hemolyzed CHLORIDE (BEAKER) (test 105 meq/L 98-107 pfxm=316) CO2 (BEAKER) (test 18 meq/L 22-29 gxej=706) BLOOD UREA NITROGEN 6 mg/dL 7-21 (BEAKER) (test wktg=791) CREATININE (BEAKER) (test 0.72 mg/dL 0.57-1.25 Specimen moderately hfzw=729) hemolyzed GLUCOSE RANDOM (BEAKER) 103 mg/dL 70-105 (test xpac=306) CALCIUM (BEAKER) (test 7.4 mg/dL 8.4-10.2 emrl=246) EGFR (BEAKER) (test 115 mL/min/1.73 sq m ESTIMATED GFR IS NOT erii=8391) ACCURATE CREATININE CLEARANCE IN PREDICTING GLOMERULAR FILTRATION RATE. ESTIMATED GFR IS NOT APPLICABLE FOR DIALYSIS PATIENTS. Specimen moderately ictericIRON, TIBC, % SAT. (WITHOUT FERRITIN)2017-02-02 12:56 :00 Test Item Value Reference Range Comments IRON (BEAKER) (test iveu=364) 55 ug/dL 40-160 TOTAL IRON BINDING CAPACITY (BEAKER) (test 175 ug/dL 250-450 fdxc=136) IRON % SATURATION (2) (BEAKER) (test nhnl=5609) 31 % 20-55 HEPATIC FUNCTION [id number] 12:50:00 Test Item Value Reference Range Comments TOTAL PROTEIN (BEAKER) (test 6.7 gm/dL 6.0-8.3 Specimen moderately hemolyzed xgub=189) ALBUMIN (BEAKER) (test 2.0 g/dL 3.5-5.0 Specimen moderately hemolyzed yidk=2139) BILIRUBIN TOTAL (BEAKER) (test 5.1 mg/dL 0.2-1.2 Specimen moderately hemolyzed fimj=064) BILIRUBIN DIRECT (BEAKER) 2.8 mg/dL 0.1-0.5 Specimen moderately hemolyzed (test qvhw=117) ALKALINE PHOSPHATASE (BEAKER) 99 U/L 40-150 (test dtwe=481) AST (SGOT) (BEAKER) (test 62 U/L 5-34 Specimen moderately hemolyzed iesr=117) ALT (SGPT) (BEAKER) (test 15 U/L 6-55 Specimen moderately fwrz=400) hemolyzed Specimen moderately ictericCBC W/PLT COUNT & AUTO [id number] 12: 47:00 Test Item Value Reference Range Comments WHITE BLOOD CELL COUNT (BEAKER) (test oqdx=509) 3.3 K/ L 4.0-10.0 RED BLOOD CELL COUNT (BEAKER) (test qfcr=136) 2.08 M/ L 4.20-5.80 HEMOGLOBIN (BEAKER) (test xktc=728) 7.8 GM/DL 13.0-16.8 HEMATOCRIT (BEAKER) (test ouyq=704) 22.9 % 40.0-50.0 MEAN CORPUSCULAR VOLUME (BEAKER) (test kits=331) 110.0 fL 82.0-98.0 MEAN CORPUSCULAR HEMOGLOBIN (BEAKER) (test 37.4 pg 27.0-33.0 apgy=732) MEAN CORPUSCULAR HEMOGLOBIN CONC (BEAKER) (test 34.1 GM/DL 32.0-36.0 uybj=796) RED CELL DISTRIBUTION WIDTH (BEAKER) (test 15.0 % 10.3-14.2 xaew=406) PLATELET COUNT (BEAKER) (test tven=784) 48 K/CU MM 150-430 MEAN PLATELET VOLUME (BEAKER) (test vfun=087) 6.6 fL 6.5-10.5 NUCLEATED RED BLOOD CELLS (BEAKER) (test 0 /100 WBC 0-0 pnfm=836) NEUTROPHILS RELATIVE PERCENT (BEAKER) (test 62 % qqdl=997) LYMPHOCYTES RELATIVE PERCENT (BEAKER) (test 17 % rqnj=784) MONOCYTES RELATIVE PERCENT (BEAKER) (test 15 % fbsc=846) EOSINOPHILS RELATIVE PERCENT (BEAKER) (test 6 % uzut=530) BASOPHILS RELATIVE PERCENT (BEAKER) (test 0 % frxk=129) NEUTROPHILS ABSOLUTE COUNT (BEAKER) (test 2.03 K/ L 1.80-8.00 dygq=355) LYMPHOCYTES ABSOLUTE COUNT (BEAKER) (test 0.57 K/ L 1.48-4.50 zhrw=957) MONOCYTES ABSOLUTE COUNT (BEAKER) (test thhs=971) 0.48 K/ L 0.00-1.30 EOSINOPHILS ABSOLUTE COUNT (BEAKER) (test 0.19 K/ L 0.00-0.50 htpd=917) BASOPHILS ABSOLUTE COUNT (BEAKER) (test rrtk=438) 0.01 K/ L 0.00-0.20 0.00PROTHROMBIN [id number] 12:42:00 Test Item Value Reference Range Comments PROTIME (BEAKER) (test wubo=349) 27.0 seconds 11.7-14.7 INR (BEAKER) (test exvg=815) 2.5 <=5.9 RECOMMENDED COUMADIN/WARFARIN INR THERAPY RANGESSTANDARD DOSE: 2.0 - 3.0 Includes: PROPHYLAXIS forvenous thrombosis, systemic embolization; TREATMENT for venous thrombosis and/or pulmonary embolus.HIGH RISK: Target INR is 2.5-3.5 for patients with mechanical heart valves.ALBUMIN, BODY [id number] 11:46:00 Test Item Value Reference Range Comments ALBUMIN FLUID (BEAKER) (test fqwr=853) 0.5 gm/dL Reference Range: No Normals Assay performance has not been validated for this type of specimen.PROTEIN, BODY [id number] 11:42:00 Test Item Value Reference Range Comments PROTEIN FLUID (BEAKER) (test vyhu=826) 1.3 g/dL Absence of reference range indicates that normals have not been defined.Assay performance has not been validated for this type of specimen.
--- OUTSIDE RECORDS SUMMARY | 2018-11-10 18:29 | XMS REPORT ---
[...] Status Dosage System Date Date Midodrine HCl [facility] 99476807079 10 MG Orally Active 1 tablet Three times a day Pantoprazole [facility] 92349518529 40 MG Orally Active 1 tablet Sodium Once a day Sodium Chloride ND 06837291067 1 GM Orally TID Active 2 tablets Ondansetron HCl ND 04242321272 4 MG Orally Active 1 tab every 8 hours as needed for Nausea and vomiting Hydrocortisone ND 37994880756 20 MG Orally AM Active 1 tablet Once a day with food or milk Ursodiol ND 94521346575 300 MG Orally Active not defined Lactulose ND 42417444081 10 GM/15ML Active 15 ml Orally TID Citalopram [facility] 26236739367 10 MG Active TAKE ONE Hydrobromide DAILY Rifaximin [facility] [address]-53 550 MG Orally Active 1 tablet Twice a day Ondansetron HCl [facility] 60071300533 4 MG Active 1 TAB EVERY 8 HOURS NEEDED FOR NAUSEA AND VOMITING ORALLY 10 DAYS Magnesium Oxide [facility] 98547728957 400 MG Orally Active 1 tablet BID as needed NuFera [facility] 91197989683 - Orally once a Active 1 tab day Hydrocortisone [facility] 25400633499 10 MG Orally PM Active 1 tablet Once a day with food or milk Results No Known Results Summary Purpose eClinicalWorks Submission
--- OUTSIDE RECORDS SUMMARY | 2018-11-10 18:29 | XMS REPORT ---
[...] Dosage System Date Date Ondansetron HCl [facility] 16592840758 4 MG Orally Active 1 tab every 8 hours as needed for Nausea and vomiting Hydrocortisone ND 37242469261 20 MG Orally AM Active 1 tablet Once a day with food or milk Magnesium Oxide ND 11245159421 400 MG Orally Active 1 tablet BID as needed Rifaximin [facility] [address]-77 550 MG Orally Active 1 tablet Twice a day Pantoprazole ND 34539480608 40 MG Orally Active 1 tablet Sodium Once a day Sodium Chloride ND 91873153225 1 GM Orally TID Active 2 tablets Lactulose ND 44712180351 10 GM/15ML Active 15 ml Orally TID Ondansetron HCl [facility] 02249672556 4 MG Active 1 TAB EVERY 8 HOURS NEEDED FOR NAUSEA AND VOMITING ORALLY 10 DAYS Citalopram [facility] 92157215928 40 MG Orally Active take one Hydrobromide once a day daily Hydrocortisone [facility] 48364013686 10 MG Orally PM Active 1 tablet Once a day with food or milk NuFera [facility] 37248571125 - Orally once a Active 1 tab day Citalopram [facility] 19483969817 10 MG Active TAKE ONE Hydrobromide DAILY Ursodiol [facility] 64938198348 300 MG Orally Active not defined Midodrine HCl [facility] 89332361299 10 MG Orally Active 1 tablet Three times a day Results No Known Results Summary Purpose eClinicalWorks Submission
--- OUTSIDE RECORDS SUMMARY | 2018-11-10 18:29 | XMS REPORT ---
:1965 Author Organization e[employer]Works Care Team Providers Name Role Phone Carlos Payne Provider Role Unavailable Allergies No Known Allergies Problems Problem Type Condition Code Onset Dates Condition Status Problem GERD without esophagitis K21.9 Active Problem Anemia, chronic disease D63.8 Active Problem Alcoholic cirrhosis of liver with K70.31 Active ascites Problem Chronic alcohol use F10.10 Active Problem Cirrhosis of liver K74.60 Active Problem Depression with anxiety F41.8 Active Problem History of alcohol abuse Z87.898 Active Problem Encephalopathy, hepatic K72.90 Active Problem Vertebral compression fracture M48.50XA Active Problem Orthostatic hypotension I95.1 Active Problem Ascites R18.8 Active Problem Hypomagnesemia E83.42 Active Problem Thrombocytopenia D69.6 Active Medications Medication Code Code Instructions Start End Status Dosage System Date Date Ensure High [facility] 42679835064 - Orally every Oct 19, Active drink 320 Protein 4-6 hours 2018 ml Ondansetron HCl ND 46874580533 4 MG Orally Active 1 tablet every 6 hours as needed for nausea/vo miting Results No Known Results Summary Purpose eClinicalWorks Submission
[2018-11-10 19:10] LABS: Absolute Lymphocytes (CBC) 0.7 K/uL (0.7-4.9); Absolute Monocytes 0.7 K/uL (0.1-1.3); Absolute Neutrophil 3.1 K/uL (1.8-8.0); Basophils % 0.2 % (0-1.3); Hematocrit 24.5 % (39.6-49.0); Lymphocytes % 15.5 % (15.3-44.8); Monocytes % 15.5 % (3.3-12.3); Protime INR 1.57; RBC Red Blood Cell Count 2.62 M/uL (4.33-5.43)
--- NOTE | 2018-11-10 19:17 | RAD REPORT ---
EXAM DESCRIPTION: Elizabeth Single View11/10/2018 7:04 pm CLINICAL HISTORY: Shortness of breath COMPARISON: October 28, 2018 FINDINGS: The lungs appear clear of acute infiltrate. The heart is normal size IMPRESSION: No acute abnormalities displayed
[2018-11-10 19:21] LABS: ALT/SGPT 13 U/L (12-78); AST/SGOT 18 U/L (15-37); Albumin 2.6 g/dL (3.4-5.0); Alkaline Phosphatase 135 U/L (45-117); BUN Blood Urea Nitrogen 42 mg/dL (7-18); Bicarbonate 21 mmol/L (21-32); Bilirubin Direct 0.9 mg/dL (0-0.2); Bilirubin Total 1.8 mg/dL (0.2-1.0); Glucose Level 112 mg/dL (74-106); Magnesium 2.4 mg/dL (1.8-2.4); NT PRO-BNP 326 pg/mL (<125); Potassium 4.5 mmol/L (3.5-5.1); Protein, Total 5.6 g/dL (6.4-8.2); Sodium Level 134 mmol/L (136-145); Troponin (Emerg Dept Use Only) < 0.02 ng/mL (0.0-0.045)
--- NOTE | 2018-11-10 20:12 | ER ---
Nurse's Notes [facility] Name: Abhishek Davis Age: 53 yrs Sex: Male : 1965 Arrival Date: 11/10/2018 Time: 18:26 Bed 4 Private MD: Diagnosis: Encephalopathy, unspecified;Anemia, unspecified;Altered mental status, unspecified Presentation: 11/10 18:26 Presenting complaint: EMS states: AMS and dizziness since yesterday but worse today as aa5 reported by . EMS reports pt was awake but non-verbal at scene arrival and started speaking in route to hospital but A\\T\\O x 0. Pt currently A\\T\\O x 0. EMS reports pt is awaiting liver transplant and is his liver specialist at [facility]. EMS also reports pt's BP was 85/55 upon scene arrival and reports pt's reported vomiting today. Transition of care: patient was not received from another setting of care. Onset of symptoms was October 2018. Risk Assessment: Do you want to hurt yourself or someone else? Unable to obtain. Initial Sepsis Screen: Does the patient meet any 2 criteria? Altered Mental Status. Does the patient have a suspected source of infection? No. Patient's initial sepsis screen is negative. Care prior to arrival: Medication(s) given: Normal saline infusion, 550 ml bolus IV initiated. 18 GA, in the left antecubital area, Glucose check: 123. 18:26 Method Of Arrival: EMS: [facility] aa5 18:26 Acuity: KACEY 2 aa5 Historical: - Allergies: 18:26 No Known Allergies; aa5 - Home Meds: 18:26 Lactulose Oral 30 mL 3 times per day [Active]; ursodiol 300 mg Oral cap 1 cap 2 times aa5 per day [Active]; midodrine 5 mg Oral tab twice a day [Active]; Xifaxan 550 mg Oral tab 1 tab 2 times per day [Active]; citalopram 10 mg tab 1 tab once daily [Active]; vitamin with iron daily [Active]; pantoprazole 40 mg oral TbEC 2 tabs once daily [Active]; ondansetron HCl 4 mg Oral tab PRN [Active]; hydroxyzine HCl 25 mg Oral tab PRN [Active]; - PMHx: 18:26 Anemia; Cirrhosis; renal insufficiency; Umbilical hernia; aa5 - Immunization history:: Adult Immunizations unknown. - Social history:: Smoking status: unknown. - Ebola Screening: : Unable to complete screening because patient is disoriented, . Screenin:45 Abuse screen: No signs of abuse noted. Nutritional screening: EMS reports vomiting aa5 today . 19:15 Tuberculosis screening: No symptoms or risk factors identified. Fall Risk ea Assessment: 18:26 General: Behavior is calm. Pain: Complains of pain in right leg and left leg Unable to aa5 use pain scale. Patient is disoriented. Does not appear to understand pain scale. Neuro: Level of Consciousness is awake, confused, Pt unable to follow commands. . Oriented to none Moves all extremities. Speech is normal, Facial symmetry appears normal, Pupils are PERRL. Cardiovascular: Heart tones S1 S2 present Rhythm is sinus rhythm. Respiratory: Airway is patent Respiratory effort is even, unlabored, Respiratory pattern is regular, symmetrical, Breath sounds are clear bilaterally. GI: Abdomen is round Bowel sounds present X 4 quads. : No signs and/or symptoms were reported regarding the genitourinary system. Derm: Skin is dry, Skin is jaundiced, pale, Skin temperature is warm Bruising that is dark purple, on right and left forearm Skin tear noted to right forearm with dressing noted. . 18:30 Reassessment: Pt's at bedside. Pt's states "the wound on his right arm is aa5 because he has sensitive skin and he itches his arms a lot so he gave himself a wound" . 19:00 General: Appears in no apparent distress. Behavior is calm. Pain: Denies pain. Neuro: ea Level of Consciousness is awake, Oriented to none. Cardiovascular: Heart tones S1 S2 present. Respiratory: Airway is patent Respiratory effort is even, unlabored, Respiratory pattern is regular, symmetrical, Breath sounds are clear bilaterally. GI: Abdomen is round Bowel sounds present X 4 quads. : No signs and/or symptoms were reported regarding the genitourinary system. Derm: Skin is dry, Skin is jaundiced, pale, Skin temperature is warm Bruising that is dark purple, on right and left forearms. 20:00 Reassessment: Patient and/or family updated on plan of care and expected duration. Pain ea level reassessed. Pt alert, respirations even and unlabored. Chest expansions even and symmetrical. A \\T\\ O x 0. 21:23 Reassessment: Patient and/or family updated on plan of care and expected duration. Pain ea level reassessed. Pt resting with eyes closed, respirations even and unlabored. Chest expansions even and symmetrical. 22:12 Reassessment: Report given to Eliot NÚÑEZ at [facility] [address] [place]. ea 22:39 Reassessment: Patient and/or family updated on plan of care and expected duration. Pain ea level reassessed. Pt alert and oriented x self. Respirations even and unlabored, chest expansions even and symmetrical. [facility] at facility for transfer. Report given to [facility]. Pt left with EMS per stretcher, tolerating well. Vital Signs: 18:26 BP 96 / 74; Pulse 72; Resp 18 S; Temp 98.2(TE); Pulse Ox 100% on R/A; aa5 18:30 BP 103 / 81; Pulse 71; Resp 18 S; Pulse Ox 100% on R/A; aa5 19:00 BP 101 / 80; Pulse 69; Resp 18; Pulse Ox 99% on R/A; ea 20:47 BP 97 / 72; Pulse 77; Resp 22; Pulse Ox 98% on R/A; mw2 20:49 Temp 97.8; ea 21:23 BP 92 / 76; Pulse 73; Resp 20; Pulse Ox 99% on R/A; ea 22:14 BP 101 / 73; Pulse 70; Resp 19; Pulse Ox 99% on R/A; ea 22:35 BP 100 / 83; Pulse 76; Resp 20; Pulse Ox 100% on R/A; ea [place] Coma Score: 19:47 Eye Response: to voice(3). Verbal Response: confused(4). Motor Response: obeys jr8 commands(6). Total: 13. ED Course: 18:26 Patient arrived in ED. aa5 18:26 Patient has correct armband on for positive identification. Placed in gown. Bed in low aa5 position. Side rails up X2. library monitor on. Pulse ox on. NIBP on. 18:26 Arm band placed on. aa5 18:29 Triage completed. aa5 18:47 Desi Noe, NIYA is Primary Nurse. aa5 18:52 Alberto Payton PA is PHCP. jr8 18:52 Fernando Parson MD is Attending Physician. jr8 18:55 Report given to NIYA Berrios and NIYA Melgar. aa5 18:59 X-ray completed. Portable x-ray completed in exam room. Patient tolerated procedure az well. 19:27 Agustina Stout, RN is Primary Nurse. ea 19:[address] [facility] . spoke with iliana rowe at 1953. gm 20:23 doc to doc was done with dr stratton and dr prasad at 2022. 21:10 administrative approval was given by iliana becerra at 2109. gm 22:42 No provider procedures requiring assistance completed. Patient transferred, IV remains ea in place. Administered Medications: 20:22 Drug: Lactulose 30 grams Volume: 45 ml; Route: PO; ea 22:15 Follow up: Response: No adverse reaction ea Outcome: 20:11 ER care complete, transfer ordered by MD. [facility] 21:10 Condition: stable ea 21:10 Instructed on the need for transfer. 22:43 Transferred by ground EMS to [facility], Transfer form completed. ea 22:43 Patient left the ED. ea Signatures: Stanislaw Stratton MD MD cha Calderon, Audri, RN RN aa5 Alberto Payton PA PA jr8 Agustina Stout RN RN Alexei Porter 2 Astrid Dodd Gabriella Corrections: (The following items were deleted from the chart) 18:36 18:26 Presenting complaint: EMS states: AMS and dizziness since yesterday but worse aa5 today as reported by . EMS reports pt was awake but non-verbal at scene arrival and started speaking in route to hospital but A\\T\\O x 0. Pt currently A\\T\\O x 0. EMS reports pt is awaiting liver transplant and is his liver specialist at [facility]. EMS also reports pt's BP was 85/55 upon scene arrival. aa5 18:40 18:26 Care prior to arrival: IV initiated. 18 GA, in the left antecubital area, Glucose aa5 check: 123 aa5
--- NOTE | 2018-11-10 20:12 | EDPHYS ---
Physician Documentation [facility] Name: Abhishek Davis Age: 53 yrs Sex: Male : 1965 Arrival Date: 11/10/2018 Time: 18:26 Bed 4 Private MD: ED Physician Fernando Parson HPI: 11/10 19:47 This 53 yrs old Male presents to ER via EMS with complaints of Altered Mental jr8 Status. 19:47 The patient presents with agitation, confusion, decreased mental status. Onset: The jr8 symptoms/episode began/occurred gradually, 2 day(s) ago, and became worse. Possible causes: Hepatic failure. Associated signs and symptoms: Pertinent positives: nausea, vomiting. Current symptoms: In the emergency department the patient's symptoms are unchanged from the initial presentation. Patient's baseline: Neuro: alert and fully oriented, Motor: no deficits, Ambulation: walks without assistance, Speech: normal. The patient has experienced similar episodes in the past, a few times. The patient has been recently seen by a physician:. Family stated that patient had paracentesis on Friday. Now having increased confusion that was markedly worse today. Has had n/v as well. Patient awake but confused. Not alert to person, place, time, event . Historical: - Allergies: 18:26 No Known Allergies; aa5 - Home Meds: 18:26 Lactulose Oral 30 mL 3 times per day [Active]; ursodiol 300 mg Oral cap 1 cap 2 times aa5 per day [Active]; midodrine 5 mg Oral tab twice a day [Active]; Xifaxan 550 mg Oral tab 1 tab 2 times per day [Active]; citalopram 10 mg tab 1 tab once daily [Active]; vitamin with iron daily [Active]; pantoprazole 40 mg oral TbEC 2 tabs once daily [Active]; ondansetron HCl 4 mg Oral tab PRN [Active]; hydroxyzine HCl 25 mg Oral tab PRN [Active]; - PMHx: 18:26 Anemia; Cirrhosis; renal insufficiency; Umbilical hernia; aa5 - Immunization history:: Adult Immunizations unknown. - Social history:: Smoking status: unknown. - Ebola Screening: : Unable to complete screening because patient is disoriented, . ROS: 19:47 Unable to obtain ROS due to altered mental status. jr8 Exam: 19:47 Head/Face: Normocephalic, atraumatic. Eyes: Pupils equal round and reactive to light, jr8 extra-ocular motions intact. Lids and lashes normal. Conjunctiva and sclera are icteric but not injected. Cornea within normal limits. Periorbital areas with no swelling, redness, or edema. ENT: Nares patent. No nasal discharge, no septal abnormalities noted. Tympanic membranes are normal and external auditory canals are clear. Oropharynx with no redness, swelling, or masses, exudates, or evidence of obstruction, uvula midline. Mucous membranes dry. Cardiovascular: Regular rate and rhythm with a normal S1 and S2. No gallops, murmurs, or rubs. Normal PMI, no JVD. No pulse deficits. Respiratory: Lungs have equal breath sounds bilaterally, clear to auscultation and percussion. No rales, rhonchi or wheezes noted. No increased work of breathing, no retractions or nasal flaring. Abdomen/GI: Soft, non-tender, with normal bowel sounds. Mild distention with moderate sized lower abdominal hernia present Skin: Warm, dry with normal turgor. Normal color with no rashes, no lesions, and no evidence of cellulitis. MS/ Extremity: Pulses equal, no cyanosis. Neurovascular intact. Full, normal range of motion. 19:47 Neuro: Orientation: Not oriented to person, place, time, situation, Mentation: able to follow commands, slow to respond, confused, Memory: unable to test, Cranial nerves: extraocular movements are intact, Speech is slowed, Motor: moves all fours, Sensation: no obvious gross deficits, Gait: not tested. seizure activity, is not displayed by the patient, asterixis present . Vital Signs: 18:26 BP 96 / 74; Pulse 72; Resp 18 S; Temp 98.2(TE); Pulse Ox 100% on R/A; aa5 18:30 BP 103 / 81; Pulse 71; Resp 18 S; Pulse Ox 100% on R/A; aa5 19:00 BP 101 / 80; Pulse 69; Resp 18; Pulse Ox 99% on R/A; ea 20:47 BP 97 / 72; Pulse 77; Resp 22; Pulse Ox 98% on R/A; mw2 20:49 Temp 97.8; ea 21:23 BP 92 / 76; Pulse 73; Resp 20; Pulse Ox 99% on R/A; ea 22:14 BP 101 / 73; Pulse 70; Resp 19; Pulse Ox 99% on R/A; ea 22:35 BP 100 / 83; Pulse 76; Resp 20; Pulse Ox 100% on R/A; ea [place] Coma Score: 19:47 Eye Response: to voice(3). Verbal Response: confused(4). Motor Response: obeys jr commands(6). Total: 13. MDM: 18:53 Patient medically screened. jr8 19:38 ED course: Meld score of 23. 8 11/10 18:37 Order name: Basic Metabolic Panel [facility] 11/10 18:37 Order name: CBC with Diff 11/10 18:37 Order name: LFT's [facility] 11/10 18:37 Order name: Magnesium [facility] 11/10 18:37 Order name: NT PRO-BNP [facility] 11/10 18:37 Order name: PT-INR [facility] 11/10 18:37 Order name: Troponin (emerg Dept Use Only) [facility] 11/10 18:37 Order name: AMMONIA [facility] 11/10 18:56 Order name: Glucose, Ancillary Testing; Complete Time: 19:01 EDMS 11/10 19:12 Order name: CBC with Automated Diff; Complete Time: 21:12 EDMS 11/10 19:18 Order name: Ammonia; Complete Time: 19:36 EDMS 11/10 19:22 Order name: Basic Metabolic Panel; Complete Time: 19:36 EDMS 11/10 19:23 Order name: Liver (Hepatic) Function; Complete Time: 19:36 EDMS 11/10 19:23 Order name: Troponin (Emerg Dept Use Only); Complete Time: 19:36 EDMS 11/10 18:37 Order name: XRAY Chest (1 view) 11/10 18:37 Order name: EKG; Complete Time: 18:38 11/10 18:37 Order name: Cardiac monitoring; Complete Time: 18:38 11/10 18:37 Order name: EKG - Nurse/Tech; Complete Time: 18:38 11/10 18:37 Order name: IV Saline Lock; Complete Time: 18:47 11/10 18:37 Order name: Labs collected and sent; Complete Time: 18:47 [facility] 11/10 18:37 Order name: O2 Per Protocol; Complete Time: 18:38 aa5 11/10 18:37 Order name: O2 Sat Monitoring; Complete Time: 18:38 aa5 11/10 19:19 Order name: RAD; Complete Time: 19:36 EDMS 11/10 19:23 Order name: NT PRO-BNP; Complete Time: 19:36 EDMS 11/10 19:23 Order name: Magnesium; Complete Time: 19:36 EDMS 11/10 19:24 Order name: Protime (+INR); Complete Time: 19:36 EDMS 11/10 21:10 Order name: Manual Differential; Complete Time: 21:12 EDMS Administered Medications: 20:22 Drug: Lactulose 30 grams Volume: 45 ml; Route: PO; ea 22:15 Follow up: Response: No adverse reaction ea Disposition: 11/10/18 20:11 Transfer ordered to [facility]. Diagnosis are Encephalopathy, unspecified, Anemia, unspecified, Altered mental status, unspecified. - Reason for transfer: Higher level of care. - Accepting physician is [facility], tele . liver service. - Condition is Fair. - Problem is new. - Symptoms have improved. Addendum: 11/13/2018 01:36 Co-signature as Attending Physician, Fernando Parosn MD. g s Signatures: Dispatcher [employer] Stanislaw Curry MD MD cha Calderon, Audri, RN RN aa5 Alberto Payton PA PA jr8 Agustina Stout RN RN ea Starr, Gregory, MD MD Corrections: (The following items were deleted from the chart) 11/10 22:43 20:11 11/10/2018 20:11 Transfer ordered to [facility]. Diagnosis is ea Encephalopathy, unspecified; Anemia, unspecified; Altered mental status, unspecified. Reason for transfer: Higher level of care. Accepting physician is [facility], tele . liver service. Condition is Fair. Problem is new. Symptoms have improved. marquise
[2018-11-10] MEDS ORDERED: LACTULOSE 20 GM/30 ML UCUP ONE (20:22)
[2018-11-10 21:09] LABS: Blood Morphology Comment NOT SEEN (NOT SEEN); Platelet Estimate DECR
[2018-11-10 22:59] VITALS: TEMP 97.8
[2018-11-10 23:04] VITALS: BP 100/83; O2SAT 100
--- NOTE | 2018-11-11 10:23 | EKG ---
Test Date: 2018-11-10 Test Time: 18:39:15 [employer] Agent: ADITHYA MEASUREMENT RESULTS: Intervals: Rate: 72 ME: 170 QRSD: 92 QT: 456 QTc: 499 [place]: P: 25 ME: 170 QRS: -6 T: 45 INTERPRETIVE STATEMENTS: Normal sinus rhythm Low voltage QRS Prolonged QT Abnormal ECG Compared to ECG 10/28/2018 16:44:16 Low QRS voltage now present Prolonged QT interval now present Electronically Signed On 11-11-18 10:22:16 LUMBER STRAIGHTENED by Ghanshyam Young
== END 2018-11-10 22:43 | disposition short-term general hospital (02) ==
LOC: ER 18:13
DX: G93.40 Encephalopathy, unspecified (principal); D64.9 Anemia, unspecified; R41.82 Altered mental status, unspecified; Z79.899 Other long term (current) drug therapy; R94.31 Abnormal electrocardiogram [ECG] [EKG]
CPT/HCPCS: 36415; 71045; 80048; 80076; 82140; 82962; 83735; 83880; 84484; 85025; 85610; 93005; 99285

== ENCOUNTER 2018-12-03 18:24 | Observation (INO) | payer MEDICAID ==
--- OUTSIDE RECORDS SUMMARY | 2018-12-03 18:44 | XMS REPORT ---
:1965 [facility] Address [address] [place] [address] [address]. [address] [place] [id number] Care Team Providers Name Role Phone BONILLA, BRANNONMICHAEL LEIGHEOMA Unavailable Unavailable INGRID JUNIOR Unavailable Unavailable BRANDO AGUILAR Unavailable Unavailable RYANNE LARKIN Unavailable Unavailable BRYAN MUSA Unavailable Unavailable ANDREA DENTON Unavailable Unavailable OWEN MASON Unavailable Unavailable MARIAA HEATH Unavailable Unavailable JULIO ENRIQUEZ Unavailable Unavailable LORENJUANI Unavailable Unavailable Problems This patient has no known problems. Allergies, Adverse Reactions, Alerts This patient has no known allergies or adverse reactions. Medications This patient has no known medications. Results Test Description Test Time Test Comments Text Results Atomic Results Result Comments BODY FLUID CULTURE + GRAM STAIN 2018-11-21 11:04:00 Test Item Value Reference Range Comments CULTURE (BEAKER) (test vnop=8426) No growth GRAM STAIN RESULT (BEAKER) (test viag=3796) <1+ WBCs GRAM STAIN RESULT (BEAKER) (test ctgu=09836) No organisms seen POCT-GLUCOSE [id number] 11:52:00 Test Item Value Reference Range Comments POC-GLUCOSE METER (BEAKER) 224 mg/dL 70-110 TESTED AT [facility] [address] [facility] (test zfxh=8171) [facility] [address] POCT-GLUCOSE [id number] 08:27:00 Test Item Value Reference Range Comments POC-GLUCOSE METER (BEAKER) 159 mg/dL 70-110 TESTED AT [place] [address] [facility] (test xwhu=4967) [facility] [address] CBC W/PLT COUNT & AUTO [id number] 06:22:00 Test Item Value Reference Range Comments WHITE BLOOD CELL COUNT (BEAKER) (test ckbj=245) 5.7 K/ L 3.5-10.5 RED BLOOD CELL COUNT (BEAKER) (test aqyl=324) 2.69 M/ L 4.63-6.08 HEMOGLOBIN (BEAKER) (test rgmg=766) 8.7 GM/DL 13.7-17.5 HEMATOCRIT (BEAKER) (test damw=123) 25.4 % 40.1-51.0 MEAN CORPUSCULAR VOLUME (BEAKER) (test hmhi=344) 94.4 fL 79.0-92.2 MEAN CORPUSCULAR HEMOGLOBIN (BEAKER) (test 32.3 pg 25.7-32.2 qoql=718) MEAN CORPUSCULAR HEMOGLOBIN CONC (BEAKER) (test 34.3 GM/DL 32.3-36.5 gvgu=790) RED CELL DISTRIBUTION WIDTH (BEAKER) (test 16.8 % 11.6-14.4 qzdm=977) PLATELET COUNT (BEAKER) (test ryps=897) 43 K/CU MM 150-450 MEAN PLATELET VOLUME (BEAKER) (test njdn=328) 10.6 fL 9.4-12.4 NUCLEATED RED BLOOD CELLS (BEAKER) (test 0 /100 WBC 0-0 rcyu=319) NEUTROPHILS RELATIVE PERCENT (BEAKER) (test 82 % vovm=071) LYMPHOCYTES RELATIVE PERCENT (BEAKER) (test 7 % lhjb=358) MONOCYTES RELATIVE PERCENT (BEAKER) (test 9 % salg=724) EOSINOPHILS RELATIVE PERCENT (BEAKER) (test 0 % klil=861) BASOPHILS RELATIVE PERCENT (BEAKER) (test 0 % hwlb=067) NEUTROPHILS ABSOLUTE COUNT (BEAKER) (test 4.65 K/ L 1.78-5.38 mrrb=892) LYMPHOCYTES ABSOLUTE COUNT (BEAKER) (test 0.38 K/ L 1.32-3.57 fsep=878) MONOCYTES ABSOLUTE COUNT (BEAKER) (test lcmi=449) 0.53 K/ L 0.30-0.82 EOSINOPHILS ABSOLUTE COUNT (BEAKER) (test 0.01 K/ L 0.04-0.54 npsu=633) BASOPHILS ABSOLUTE COUNT (BEAKER) (test jenc=993) 0.01 K/ L 0.01-0.08 IMMATURE GRANULOCYTES-RELATIVE PERCENT (BEAKER) 1 % 0-1 (test ocem=2809) B-TYPE NATRIURETIC FACTOR (BNP)2018-11-20 06:16:00 Test Item Value Reference Range Comments B-TYPE NATRIURETIC PEPTIDE (BEAKER) (test 2158 pg/mL 0-100 qwki=728) [id number] 06:15:00 Test Item Value Reference Range Comments PHOSPHORUS (BEAKER) (test lhen=732) 2.5 mg/dL 2.3-4.7 [id number] 06:15:00 Test Item Value Reference Range Comments MAGNESIUM (BEAKER) (test qhwu=017) 1.8 mg/dL 1.6-2.6 COMPREHENSIVE METABOLIC [id number] 06:15:00 Test Item Value Reference Range Comments TOTAL PROTEIN (BEAKER) 5.4 gm/dL 6.0-8.3 (test phga=841) ALBUMIN (BEAKER) (test 4.1 g/dL 3.5-5.0 jccr=9727) ALKALINE PHOSPHATASE 63 U/L 40-150 (BEAKER) (test xgne=748) BILIRUBIN TOTAL (BEAKER) 2.6 mg/dL 0.2-1.2 (test hjrx=529) SODIUM (BEAKER) (test 136 meq/L 136-145 jnwu=572) POTASSIUM (BEAKER) (test 3.9 meq/L 3.5-5.1 jvin=312) CHLORIDE (BEAKER) (test 107 meq/L 98-107 nphp=176) CO2 (BEAKER) (test 23 meq/L 22-29 ltlz=794) BLOOD UREA NITROGEN 41 mg/dL 7-21 (BEAKER) (test ltgy=670) CREATININE (BEAKER) (test 1.47 mg/dL 0.57-1.25 pgtc=411) GLUCOSE RANDOM (BEAKER) 169 mg/dL 70-105 (test dqxz=174) CALCIUM (BEAKER) (test 10.0 mg/dL 8.4-10.2 osqk=349) AST (SGOT) (BEAKER) (test 13 U/L 5-34 tyqg=974) ALT (SGPT) (BEAKER) (test 9 U/L 6-55 fdci=463) EGFR (BEAKER) (test 50 mL/min/1.73 sq m ESTIMATED GFR IS NOT oavc=0250) ACCURATE CREATININE CLEARANCE IN PREDICTING GLOMERULAR FILTRATION RATE. ESTIMATED GFR IS NOT APPLICABLE FOR DIALYSIS PATIENTS. CALCIUM, [id number] 05:45:00 Test Item Value Reference Range Comments CALCIUM IONIZED (BEAKER) (test kpcb=070) 1.28 mmol/L 1.12-1.27 PH, BLOOD (BEAKER) (test edwf=0081) 7.39 POCT-GLUCOSE [id number] 21:51:00 Test Item Value Reference Range Comments POC-GLUCOSE METER (BEAKER) 143 mg/dL 70-110 TESTED AT [address] (test pnub=1010) [facility] [address] POCT-GLUCOSE [id number] 17:44:00 Test Item Value Reference Range Comments POC-GLUCOSE METER (BEAKER) 288 mg/dL 70-110 TESTED AT [address] (test ayag=7555) [facility] [address] POCT-GLUCOSE [id number] 12:55:00 Test Item Value Reference Range Comments POC-GLUCOSE METER (BEAKER) 310 mg/dL 70-110 TESTED AT [address] (test evib=5345) [facility] [address] POCT-GLUCOSE [id number] 09:01:00 Test Item Value Reference Range Comments POC-GLUCOSE METER (BEAKER) 162 mg/dL 70-110 TESTED AT [address] (test etor=2597) [facility] [address] HEMOGLOBIN AND [id number] 08:59:00 Test Item Value Reference Range Comments HEMOGLOBIN (BEAKER) (test zanc=104) 6.6 GM/DL 13.7-17.5 HEMATOCRIT (BEAKER) (test cnir=133) 19.7 % 40.1-51.0 [id number] 06:54:00 Test Item Value Reference Range Comments PHOSPHORUS (BEAKER) (test wzgf=522) 1.0 mg/dL 2.3-4.7 [id number] 06:42:00 Test Item Value Reference Range Comments MAGNESIUM (BEAKER) (test vagb=237) 2.2 mg/dL 1.6-2.6 COMPREHENSIVE METABOLIC [id number] 06:42:00 Test Item Value Reference Range Comments TOTAL PROTEIN (BEAKER) 5.7 gm/dL 6.0-8.3 (test qeum=457) ALBUMIN (BEAKER) (test 4.3 g/dL 3.5-5.0 ozzx=9150) ALKALINE PHOSPHATASE 56 U/L 40-150 (BEAKER) (test qxsw=379) BILIRUBIN TOTAL (BEAKER) 1.3 mg/dL 0.2-1.2 (test ntta=745) SODIUM (BEAKER) (test 134 meq/L 136-145 aikw=984) POTASSIUM (BEAKER) (test 4.2 meq/L 3.5-5.1 jadm=701) CHLORIDE (BEAKER) (test 107 meq/L 98-107 npnf=019) CO2 (BEAKER) (test 21 meq/L 22-29 btwn=460) BLOOD UREA NITROGEN 38 mg/dL 7-21 (BEAKER) (test vbjs=302) CREATININE (BEAKER) (test 1.41 mg/dL 0.57-1.25 yvos=263) GLUCOSE RANDOM (BEAKER) 144 mg/dL 70-105 (test znfn=558) CALCIUM (BEAKER) (test 10.6 mg/dL 8.4-10.2 zmjx=195) AST (SGOT) (BEAKER) (test 13 U/L 5-34 ufzj=673) ALT (SGPT) (BEAKER) (test 8 U/L 6-55 qywi=555) EGFR (BEAKER) (test 53 mL/min/1.73 sq m ESTIMATED GFR IS NOT plof=7147) ACCURATE CREATININE CLEARANCE IN PREDICTING GLOMERULAR FILTRATION RATE. ESTIMATED GFR IS NOT APPLICABLE FOR DIALYSIS PATIENTS. CALCIUM, [id number] 05:52:00 Test Item Value Reference Range Comments CALCIUM IONIZED (BEAKER) (test orbq=506) 1.25 mmol/L 1.12-1.27 PH, BLOOD (BEAKER) (test xnua=1368) 7.47 CBC W/PLT COUNT & AUTO [id number] 04:49:00 Test Item Value Reference Range Comments WHITE BLOOD CELL COUNT (BEAKER) (test pkhq=506) 4.6 K/ L 3.5-10.5 RED BLOOD CELL COUNT (BEAKER) (test pexi=056) 2.09 M/ L 4.63-6.08 HEMOGLOBIN (BEAKER) (test aaii=165) 6.6 GM/DL 13.7-17.5 HEMATOCRIT (BEAKER) (test agtu=008) 19.8 % 40.1-51.0 MEAN CORPUSCULAR VOLUME (BEAKER) (test haic=230) 94.7 fL 79.0-92.2 MEAN CORPUSCULAR HEMOGLOBIN (BEAKER) (test 31.6 pg 25.7-32.2 utfk=630) MEAN CORPUSCULAR HEMOGLOBIN CONC (BEAKER) (test 33.3 GM/DL 32.3-36.5 ivpn=433) RED CELL DISTRIBUTION WIDTH (BEAKER) (test 16.0 % 11.6-14.4 tkua=585) PLATELET COUNT (BEAKER) (test jndb=312) 49 K/CU MM 150-450 MEAN PLATELET VOLUME (BEAKER) (test gqvp=611) 9.3 fL 9.4-12.4 NUCLEATED RED BLOOD CELLS (BEAKER) (test 0 /100 WBC 0-0 uxyb=930) NEUTROPHILS RELATIVE PERCENT (BEAKER) (test 84 % uaup=977) LYMPHOCYTES RELATIVE PERCENT (BEAKER) (test 6 % zryy=976) MONOCYTES RELATIVE PERCENT (BEAKER) (test 8 % xfda=918) EOSINOPHILS RELATIVE PERCENT (BEAKER) (test 0 % znth=392) BASOPHILS RELATIVE PERCENT (BEAKER) (test 0 % ouye=339) NEUTROPHILS ABSOLUTE COUNT (BEAKER) (test 3.90 K/ L 1.78-5.38 uarq=576) LYMPHOCYTES ABSOLUTE COUNT (BEAKER) (test 0.29 K/ L 1.32-3.57 kqqh=683) MONOCYTES ABSOLUTE COUNT (BEAKER) (test bios=701) 0.39 K/ L 0.30-0.82 EOSINOPHILS ABSOLUTE COUNT (BEAKER) (test 0.00 K/ L 0.04-0.54 raqr=067) BASOPHILS ABSOLUTE COUNT (BEAKER) (test vivp=214) 0.00 K/ L 0.01-0.08 IMMATURE GRANULOCYTES-RELATIVE PERCENT (BEAKER) 1 % 0-1 (test awar=3352) POCT-GLUCOSE [id number] 22:24:00 Test Item Value Reference Range Comments POC-GLUCOSE METER (BEAKER) 272 mg/dL 70-110 TESTED AT [facility] [address] [facility] (test rbzf=7451) [facility] [address] BODY FLUID CELL COUNT WITH [id number] 20:26:00 Test Item Value Reference Range Comments APPEARANCE FLUID (BEAKER) (test yfuc=838) Clear Clear COLOR FLUID (BEAKER) (test bwmw=947) Yellow Colorless, Straw RBC FLUID (BEAKER) (test vzps=885) 160 /cu mm <=1 ADJUSTED WBC FLUID (BEAKER) (test ppgy=7430) 66 /cu mm <=5 LINING CELLS (BEAKER) (test xwdf=6995) 0 /cu mm <=1 NEUTROPHILS FLUID (BEAKER) (test vfoo=2605) 2 % LYMPHS FLUID (BEAKER) (test gibb=810) 17 % MONO/MACROPHAGE FLUID (BEAKER) (test fkjo=499) 81 % EOSINOPHILS FLUID (BEAKER) (test qciv=723) 0 % BASO FLUID (BEAKER) (test ofmc=697) 0 % CONTAINER BODY FLUID (BEAKER) (test dekx=1653) EDTA Tube ALBUMIN, BODY [id number] 18:58:00 Test Item Value Reference Range Comments ALBUMIN FLUID (BEAKER) (test yroh=362) 1.6 gm/dL Reference Range: No Normals Assay performance has not been validated for this type of specimen.POCT-GLUCOSE [id number] 17:51:00 Test Item Value Reference Range Comments POC-GLUCOSE METER (BEAKER) 275 mg/dL 70-110 TESTED AT [address] (test trwn=9971) [place] [address] U/S, [id number] 16:16:00Reason for exam:->ascitesFINAL REPORT History: Ascites. Procedure: Following informed written consent, the patient's left lower quadrant was prepped and draped in the usual sterile manner. 2% lidocaine was given locally for anesthesia. No conscious sedation was administered. Using ultrasound guidance and a 5 hungarian angiocatheter, access was gained to the left lower quadrant peritoneal cavity. Approximately 4200 cc of clear yellow fluid was without incident. Small samples of fluid were submitted for the requested studies. Findings: Images obtained prior the procedure demonstrate a moderate amount of anechoic fluid within the peritoneal cavity surrounding multiple loops of bowel. Impression: 1. Successful ultrasound guided paracentesis. Approximately 4200 cc of ascitic fluid was removed without complications. Signed: Karina Rain MDReport Verified Date/Time: 11/18/2018 16:16:57 Reading Location: [address] Ultrasound Reading Room POCT-GLUCOSE [id number] 10:24:00 Test Item Value Reference Range Comments POC-GLUCOSE METER (BEAKER) 187 mg/dL 70-110 TESTED AT [facility] [address] (test dpih=0387) [place] [address] CALCIUM, [id number] 07:11:00 Test Item Value Reference Range Comments CALCIUM IONIZED (BEAKER) (test rgjo=273) 1.42 mmol/L 1.12-1.27 PH, BLOOD (BEAKER) (test xfdb=0412) 7.38 VITAMIN D, [id number] 07:00:00 Test Item Value Reference Range Comments VITAMIN D 25-OH (BEAKER) (test haax=6590) 6.3 ng/mL 6.6-49.9 Effective 08/06/2017: Reference Range ChangeNew: 6.6-49.9 ng/mL Previous: 13.0 -47.8 ng/mLRecommended Vitamin D Target Range: 30.0-40.0 ng/[id number] 06:43:00 Test Item Value Reference Range Comments PHOSPHORUS (BEAKER) (test bhvs=875) 1.6 mg/dL 2.3-4.7 [id number] 06:43:00 Test Item Value Reference Range Comments MAGNESIUM (BEAKER) (test eahx=967) 2.1 mg/dL 1.6-2.6 PTH, [id number] 06:43:00 Test Item Value Reference Range Comments PARATHYROID HORMONE INTACT (BEAKER) (test 18.8 pg/mL 8.5-72.5 akdn=159) COMPREHENSIVE METABOLIC [id number] 06:43:00 Test Item Value Reference Range Comments TOTAL PROTEIN (BEAKER) 5.9 gm/dL 6.0-8.3 (test kujk=798) ALBUMIN (BEAKER) (test 4.4 g/dL 3.5-5.0 wjsl=8102) ALKALINE PHOSPHATASE 66 U/L 40-150 (BEAKER) (test lsyu=004) BILIRUBIN TOTAL (BEAKER) 1.5 mg/dL 0.2-1.2 (test ruls=134) SODIUM (BEAKER) (test 134 meq/L 136-145 lkrd=048) POTASSIUM (BEAKER) (test 3.2 meq/L 3.5-5.1 igmd=292) CHLORIDE (BEAKER) (test 104 meq/L 98-107 onpp=488) CO2 (BEAKER) (test 21 meq/L 22-29 uhhn=675) BLOOD UREA NITROGEN 33 mg/dL 7-21 (BEAKER) (test jrcq=390) CREATININE (BEAKER) (test 1.60 mg/dL 0.57-1.25 mwxo=793) GLUCOSE RANDOM (BEAKER) 149 mg/dL 70-105 (test tkvh=628) CALCIUM (BEAKER) (test 11.1 mg/dL 8.4-10.2 nfud=551) AST (SGOT) (BEAKER) (test 12 U/L 5-34 ehtu=421) ALT (SGPT) (BEAKER) (test 9 U/L 6-55 ajvt=859) EGFR (BEAKER) (test 45 mL/min/1.73 sq m ESTIMATED GFR IS NOT djdc=0496) ACCURATE CREATININE CLEARANCE IN PREDICTING GLOMERULAR FILTRATION RATE. ESTIMATED GFR IS NOT APPLICABLE FOR DIALYSIS PATIENTS. CBC W/PLT COUNT & AUTO [id number] 06:28:00 Test Item Value Reference Range Comments WHITE BLOOD CELL COUNT (BEAKER) (test snxu=279) 4.6 K/ L 3.5-10.5 RED BLOOD CELL COUNT (BEAKER) (test swqh=524) 2.27 M/ L 4.63-6.08 HEMOGLOBIN (BEAKER) (test wqhq=304) 7.3 GM/DL 13.7-17.5 HEMATOCRIT (BEAKER) (test yhfz=439) 21.4 % 40.1-51.0 MEAN CORPUSCULAR VOLUME (BEAKER) (test mdup=440) 94.3 fL 79.0-92.2 MEAN CORPUSCULAR HEMOGLOBIN (BEAKER) (test 32.2 pg 25.7-32.2 kvaz=923) MEAN CORPUSCULAR HEMOGLOBIN CONC (BEAKER) (test 34.1 GM/DL 32.3-36.5 sgxs=910) RED CELL DISTRIBUTION WIDTH (BEAKER) (test 15.8 % 11.6-14.4 glcx=800) PLATELET COUNT (BEAKER) (test htjn=021) 51 K/CU MM 150-450 MEAN PLATELET VOLUME (BEAKER) (test rmtp=835) 9.8 fL 9.4-12.4 NUCLEATED RED BLOOD CELLS (BEAKER) (test 0 /100 WBC 0-0 wyua=531) NEUTROPHILS RELATIVE PERCENT (BEAKER) (test 76 % updd=443) LYMPHOCYTES RELATIVE PERCENT (BEAKER) (test 7 % nyfh=719) MONOCYTES RELATIVE PERCENT (BEAKER) (test 15 % uyja=790) EOSINOPHILS RELATIVE PERCENT (BEAKER) (test 1 % xwck=022) BASOPHILS RELATIVE PERCENT (BEAKER) (test 0 % lirs=444) NEUTROPHILS ABSOLUTE COUNT (BEAKER) (test 3.50 K/ L 1.78-5.38 cfej=218) LYMPHOCYTES ABSOLUTE COUNT (BEAKER) (test 0.31 K/ L 1.32-3.57 ggej=691) MONOCYTES ABSOLUTE COUNT (BEAKER) (test dlla=718) 0.69 K/ L 0.30-0.82 EOSINOPHILS ABSOLUTE COUNT (BEAKER) (test 0.04 K/ L 0.04-0.54 zsng=253) BASOPHILS ABSOLUTE COUNT (BEAKER) (test txon=909) 0.00 K/ L 0.01-0.08 IMMATURE GRANULOCYTES-RELATIVE PERCENT (BEAKER) 1 % 0-1 (test jqsn=3960) POCT-GLUCOSE [id number] 23:08:00 Test Item Value Reference Range Comments POC-GLUCOSE METER (BEAKER) 259 mg/dL 70-110 TESTED AT [address] (test xndn=8669) [place] [address] POCT-GLUCOSE [id number] 18:53:00 Test Item Value Reference Range Comments POC-GLUCOSE METER (BEAKER) 211 mg/dL 70-110 TESTED AT [address] (test ptpu=6937) [place] [id number] POCT-GLUCOSE [id number] 08:37:00 Test Item Value Reference Range Comments POC-GLUCOSE METER (BEAKER) 208 mg/dL 70-110 TESTED AT [address] (test sozs=9240) [place] [address] [id number] 07:38:00 Test Item Value Reference Range Comments PHOSPHORUS (BEAKER) (test twcc=062) 2.3 mg/dL 2.3-4.7 [id number] 07:38:00 Test Item Value Reference Range Comments MAGNESIUM (BEAKER) (test cjev=711) 2.2 mg/dL 1.6-2.6 BASIC METABOLIC [id number] 07:38:00 Test Item Value Reference Range Comments SODIUM (BEAKER) (test 132 meq/L 136-145 yiiv=065) POTASSIUM (BEAKER) (test 3.9 meq/L 3.5-5.1 ksdg=005) CHLORIDE (BEAKER) (test 103 meq/L 98-107 xhls=431) CO2 (BEAKER) (test 18 meq/L 22-29 rxsb=616) BLOOD UREA NITROGEN 32 mg/dL 7-21 (BEAKER) (test nkko=757) CREATININE (BEAKER) (test 1.59 mg/dL 0.57-1.25 oqyu=008) GLUCOSE RANDOM (BEAKER) 152 mg/dL 70-105 (test reeu=165) CALCIUM (BEAKER) (test 10.9 mg/dL 8.4-10.2 yybl=502) EGFR (BEAKER) (test 46 mL/min/1.73 sq m ESTIMATED GFR IS NOT tgab=6884) ACCURATE CREATININE CLEARANCE IN PREDICTING GLOMERULAR FILTRATION RATE. ESTIMATED GFR IS NOT APPLICABLE FOR DIALYSIS PATIENTS. CALCIUM, [id number] 07:14:00 Test Item Value Reference Range Comments CALCIUM IONIZED (BEAKER) (test jjah=317) 1.33 mmol/L 1.12-1.27 PH, BLOOD (BEAKER) (test whkg=4749) 7.34 CBC W/PLT COUNT & AUTO [id number] 07:13:00 Test Item Value Reference Range Comments WHITE BLOOD CELL COUNT (BEAKER) (test bqqp=542) 5.7 K/ L 3.5-10.5 RED BLOOD CELL COUNT (BEAKER) (test hgqn=838) 2.38 M/ L 4.63-6.08 HEMOGLOBIN (BEAKER) (test rwzx=135) 7.6 GM/DL 13.7-17.5 HEMATOCRIT (BEAKER) (test lqdt=109) 22.6 % 40.1-51.0 MEAN CORPUSCULAR VOLUME (BEAKER) (test krjf=702) 95.0 fL 79.0-92.2 MEAN CORPUSCULAR HEMOGLOBIN (BEAKER) (test 31.9 pg 25.7-32.2 pjpc=123) MEAN CORPUSCULAR HEMOGLOBIN CONC (BEAKER) (test 33.6 GM/DL 32.3-36.5 jipg=961) RED CELL DISTRIBUTION WIDTH (BEAKER) (test 15.8 % 11.6-14.4 kpyy=402) PLATELET COUNT (BEAKER) (test wupd=925) 60 K/CU MM 150-450 MEAN PLATELET VOLUME (BEAKER) (test lzvg=391) 9.6 fL 9.4-12.4 NUCLEATED RED BLOOD CELLS (BEAKER) (test 0 /100 WBC 0-0 halb=422) NEUTROPHILS RELATIVE PERCENT (BEAKER) (test 79 % vcgf=047) LYMPHOCYTES RELATIVE PERCENT (BEAKER) (test 7 % tiiy=065) MONOCYTES RELATIVE PERCENT (BEAKER) (test 14 % hcaw=430) EOSINOPHILS RELATIVE PERCENT (BEAKER) (test 0 % ldiw=893) BASOPHILS RELATIVE PERCENT (BEAKER) (test 0 % repz=802) NEUTROPHILS ABSOLUTE COUNT (BEAKER) (test 4.49 K/ L 1.78-5.38 qjqs=236) LYMPHOCYTES ABSOLUTE COUNT (BEAKER) (test 0.38 K/ L 1.32-3.57 mfsy=753) MONOCYTES ABSOLUTE COUNT (BEAKER) (test pddf=422) 0.77 K/ L 0.30-0.82 EOSINOPHILS ABSOLUTE COUNT (BEAKER) (test 0.00 K/ L 0.04-0.54 hcus=002) BASOPHILS ABSOLUTE COUNT (BEAKER) (test oyha=707) 0.00 K/ L 0.01-0.08 IMMATURE GRANULOCYTES-RELATIVE PERCENT (BEAKER) 1 % 0-1 (test mgty=9249) POCT-GLUCOSE [id number] 21:28:00 Test Item Value Reference Range Comments POC-GLUCOSE METER (BEAKER) 229 mg/dL 70-110 TESTED AT [address] (test oloh=7185) [facility] [address] POCT-GLUCOSE [id number] 16:58:00 Test Item Value Reference Range Comments POC-GLUCOSE METER (BEAKER) 207 mg/dL 70-110 TESTED AT [address] (test hsay=4122) [facility] [address] POCT-GLUCOSE [id number] 15:38:00 Test Item Value Reference Range Comments POC-GLUCOSE METER (BEAKER) 198 mg/dL 70-110 TESTED AT [address] (test ardv=0627) [place] [id number] BASIC METABOLIC [id number] 14:09:00 Test Item Value Reference Range Comments SODIUM (BEAKER) (test 128 meq/L 136-145 mxxk=725) POTASSIUM (BEAKER) (test 3.7 meq/L 3.5-5.1 kwvk=056) CHLORIDE (BEAKER) (test 102 meq/L 98-107 dcdd=794) CO2 (BEAKER) (test 17 meq/L 22-29 vzgp=710) BLOOD UREA NITROGEN 32 mg/dL 7-21 (BEAKER) (test gpyo=438) CREATININE (BEAKER) (test 1.59 mg/dL 0.57-1.25 aejp=701) GLUCOSE RANDOM (BEAKER) 200 mg/dL 70-105 (test wcpu=068) CALCIUM (BEAKER) (test 10.1 mg/dL 8.4-10.2 qlno=726) EGFR (BEAKER) (test 46 mL/min/1.73 sq m ESTIMATED GFR IS NOT kygg=2291) ACCURATE CREATININE CLEARANCE IN PREDICTING GLOMERULAR FILTRATION RATE. ESTIMATED GFR IS NOT APPLICABLE FOR DIALYSIS PATIENTS. POCT-GLUCOSE [id number] 08:26:00 Test Item Value Reference Range Comments POC-GLUCOSE METER (BEAKER) 188 mg/dL 70-110 TESTED AT [address] (test nrew=1770) [place] [address] BLOOD [id number] 07:00:00 Test Item Value Reference Range Comments CULTURE (BEAKER) (test eywe=3064) No growth in 5 days BLOOD [id number] 07:00:00 Test Item Value Reference Range Comments CULTURE (BEAKER) (test rdey=2541) No growth in 5 days BLOOD GAS, [id number] 06:30:00 Test Item Value Reference Range Comments PH VENOUS (BEAKER) (test ekwl=695) 7.39 7.32-7.42 PCO2 VENOUS (BEAKER) (test zkla=108) 35 mmHg 41-51 PO2 VENOUS (BEAKER) (test aezk=423) 97 mmHg 25-40 O2 SATURATION VENOUS (BEAKER) (test nuok=575) 97.4 % 40.0-70.0 HCO3 VENOUS (BEAKER) (test izbz=068) 21 mmol/L 21-29 BASE EXCESS VENOUS (BEAKER) (test bgrw=354) -3.8 mmol/L -2.0-3.0 PATIENT TEMPERATURE (BEAKER) (test yglx=8653) 37.0 C FIO2 (BEAKER) (test wrwt=4892) 100.0 % CBC W/PLT COUNT & AUTO [id number] 06:20:00 Test Item Value Reference Range Comments WHITE BLOOD CELL COUNT (BEAKER) (test tvtj=885) 6.2 K/ L 3.5-10.5 RED BLOOD CELL COUNT (BEAKER) (test udwn=700) 2.22 M/ L 4.63-6.08 HEMOGLOBIN (BEAKER) (test azxr=106) 7.0 GM/DL 13.7-17.5 HEMATOCRIT (BEAKER) (test lgif=785) 20.4 % 40.1-51.0 MEAN CORPUSCULAR VOLUME (BEAKER) (test leop=227) 91.9 fL 79.0-92.2 MEAN CORPUSCULAR HEMOGLOBIN (BEAKER) (test 31.5 pg 25.7-32.2 fiai=381) MEAN CORPUSCULAR HEMOGLOBIN CONC (BEAKER) (test 34.3 GM/DL 32.3-36.5 ubrk=450) RED CELL DISTRIBUTION WIDTH (BEAKER) (test 14.9 % 11.6-14.4 navx=483) PLATELET COUNT (BEAKER) (test vjcy=074) 53 K/CU MM 150-450 MEAN PLATELET VOLUME (BEAKER) (test iqeg=991) 9.5 fL 9.4-12.4 NUCLEATED RED BLOOD CELLS (BEAKER) (test 0 /100 WBC 0-0 ylel=465) NEUTROPHILS RELATIVE PERCENT (BEAKER) (test 84 % fupt=170) LYMPHOCYTES RELATIVE PERCENT (BEAKER) (test 5 % cvlq=109) MONOCYTES RELATIVE PERCENT (BEAKER) (test 11 % fste=396) EOSINOPHILS RELATIVE PERCENT (BEAKER) (test 0 % snyf=999) BASOPHILS RELATIVE PERCENT (BEAKER) (test 0 % lsuo=227) NEUTROPHILS ABSOLUTE COUNT (BEAKER) (test 5.16 K/ L 1.78-5.38 ugae=592) LYMPHOCYTES ABSOLUTE COUNT (BEAKER) (test 0.30 K/ L 1.32-3.57 utqa=514) MONOCYTES ABSOLUTE COUNT (BEAKER) (test tzvj=932) 0.69 K/ L 0.30-0.82 EOSINOPHILS ABSOLUTE COUNT (BEAKER) (test 0.00 K/ L 0.04-0.54 gnzv=912) BASOPHILS ABSOLUTE COUNT (BEAKER) (test dmnd=023) 0.00 K/ L 0.01-0.08 IMMATURE GRANULOCYTES-RELATIVE PERCENT (BEAKER) 1 % 0-1 (test gfuy=9792) POCT-GLUCOSE [id number] 05:04:00 Test Item Value Reference Range Comments POC-GLUCOSE METER (BEAKER) 298 mg/dL 70-110 TESTED AT [address] (test wojh=2961) [place] [address] POCT-GLUCOSE [id number] 12:28:00 Test Item Value Reference Range Comments POC-GLUCOSE METER (BEAKER) 261 mg/dL 70-110 TESTED AT [address] (test jhkl=1041) [place] [address] BODY FLUID CULTURE + GRAM [id number] 10:18:00 Test Item Value Reference Range Comments CULTURE (BEAKER) (test gqkn=0945) No growth GRAM STAIN RESULT (BEAKER) (test 1+ WBCs jnhy=9520) GRAM STAIN RESULT (BEAKER) (test No organisms seen jprv=93261) CBC W/PLT COUNT & AUTO [id number] 09:22:00 Test Item Value Reference Range Comments WHITE BLOOD CELL COUNT (BEAKER) (test auvu=618) 6.7 K/ L 3.5-10.5 RED BLOOD CELL COUNT (BEAKER) (test ftnl=640) 2.18 M/ L 4.63-6.08 HEMOGLOBIN (BEAKER) (test wlul=576) 7.0 GM/DL 13.7-17.5 HEMATOCRIT (BEAKER) (test tfzg=142) 20.4 % 40.1-51.0 MEAN CORPUSCULAR VOLUME (BEAKER) (test cflu=110) 93.6 fL 79.0-92.2 MEAN CORPUSCULAR HEMOGLOBIN (BEAKER) (test 32.1 pg 25.7-32.2 lpqe=235) MEAN CORPUSCULAR HEMOGLOBIN CONC (BEAKER) (test 34.3 GM/DL 32.3-36.5 ltxm=771) RED CELL DISTRIBUTION WIDTH (BEAKER) (test 15.1 % 11.6-14.4 njju=363) PLATELET COUNT (BEAKER) (test dtcz=972) 62 K/CU MM 150-450 MEAN PLATELET VOLUME (BEAKER) (test owfa=859) 9.0 fL 9.4-12.4 NUCLEATED RED BLOOD CELLS (BEAKER) (test 0 /100 WBC 0-0 ybgz=219) NEUTROPHILS RELATIVE PERCENT (BEAKER) (test 84 % aacd=654) LYMPHOCYTES RELATIVE PERCENT (BEAKER) (test 5 % fimc=500) MONOCYTES RELATIVE PERCENT (BEAKER) (test 10 % zoiy=735) EOSINOPHILS RELATIVE PERCENT (BEAKER) (test 0 % cbzl=643) BASOPHILS RELATIVE PERCENT (BEAKER) (test 0 % umbf=396) NEUTROPHILS ABSOLUTE COUNT (BEAKER) (test 5.63 K/ L 1.78-5.38 gzao=307) LYMPHOCYTES ABSOLUTE COUNT (BEAKER) (test 0.32 K/ L 1.32-3.57 zofe=131) MONOCYTES ABSOLUTE COUNT (BEAKER) (test vqvf=779) 0.66 K/ L 0.30-0.82 EOSINOPHILS ABSOLUTE COUNT (BEAKER) (test 0.00 K/ L 0.04-0.54 izxn=581) BASOPHILS ABSOLUTE COUNT (BEAKER) (test hmji=184) 0.00 K/ L 0.01-0.08 IMMATURE GRANULOCYTES-RELATIVE PERCENT (BEAKER) 1 % 0-1 (test kwzv=6005) POCT-GLUCOSE [id number] 08:59:00 Test Item Value Reference Range Comments POC-GLUCOSE METER (BEAKER) 180 mg/dL 70-110 TESTED AT [address] (test ljir=7705) [facility] [address] POCT-GLUCOSE [id number] 21:23:00 Test Item Value Reference Range Comments POC-GLUCOSE METER (BEAKER) 224 mg/dL 70-110 TESTED AT [address] (test xqky=7616) [facility] [address] SODIUM, RANDOM [id number] 19:24:00 Test Item Value Reference Range Comments SODIUM URINE (BEAKER) (test axiq=357) < meq/L Reference Range: No NormalsCREATININE, RANDOM [id number] 19:22:00 Test Item Value Reference Range Comments CREATININE URINE (BEAKER) (test fziy=429) 103.7 mg/dL Reference Range: No NormalsBASIC METABOLIC [id number] 19:18:00 Test Item Value Reference Range Comments SODIUM (BEAKER) (test 127 meq/L 136-145 ihoy=570) POTASSIUM (BEAKER) (test 3.5 meq/L 3.5-5.1 rrhr=176) CHLORIDE (BEAKER) (test 102 meq/L 98-107 mslb=995) CO2 (BEAKER) (test 15 meq/L 22-29 mtyp=303) BLOOD UREA NITROGEN 34 mg/dL 7-21 (BEAKER) (test uwnz=296) CREATININE (BEAKER) (test 1.61 mg/dL 0.57-1.25 ogii=191) GLUCOSE RANDOM (BEAKER) 194 mg/dL 70-105 (test uyat=123) CALCIUM (BEAKER) (test 9.3 mg/dL 8.4-10.2 vapm=523) EGFR (BEAKER) (test 45 mL/min/1.73 sq m ESTIMATED GFR IS NOT zzmg=3327) ACCURATE CREATININE CLEARANCE IN PREDICTING GLOMERULAR FILTRATION RATE. ESTIMATED GFR IS NOT APPLICABLE FOR DIALYSIS PATIENTS. OSMOLALITY, [id number] 18:58:00 Test Item Value Reference Range Comments OSMOLALITY URINE (BEAKER) (test znkn=214) 490 mOsm/kg 40-1,400 URINALYSIS W/ REFLEX URINE [id number] 18:48:00 Test Item Value Reference Range Comments COLOR (BEAKER) (test eiej=003) Yellow CLARITY (BEAKER) (test wegf=820) Clear SPECIFIC GRAVITY UA (BEAKER) (test nzhi=254) 1.016 1.001-1.035 PH UA (BEAKER) (test pqdm=027) 6.0 5.0-8.0 PROTEIN UA (BEAKER) (test hepv=915) Negative Negative GLUCOSE UA (BEAKER) (test bixm=564) Negative Negative KETONES UA (BEAKER) (test ovzo=061) Negative Negative BILIRUBIN UA (BEAKER) (test koxk=836) Negative Negative BLOOD UA (BEAKER) (test uibr=402) Negative Negative NITRITE UA (BEAKER) (test fgwl=562) Negative Negative LEUKOCYTE ESTERASE UA (BEAKER) (test gbcv=328) Negative Negative UROBILINOGEN UA (BEAKER) (test zcsi=537) 0.2 mg/dL 0.2-1.0 RBC UA (BEAKER) (test zjnm=598) < /HPF WBC UA (BEAKER) (test vvui=841) 1 /HPF SQUAMOUS EPITHELIAL (BEAKER) (test cfll=239) < /HPF HYALINE CASTS (BEAKER) (test kzsw=763) 5 /LPF SOURCE(BEAKER) (test yopg=1195) POCT-GLUCOSE [id number] 17:31:00 Test Item Value Reference Range Comments POC-GLUCOSE METER (BEAKER) 219 mg/dL 70-110 TESTED AT [address] (test ydxa=4360) [place] [id number] POCT-GLUCOSE [id number] 12:14:00 Test Item Value Reference Range Comments POC-GLUCOSE METER (BEAKER) 242 mg/dL 70-110 TESTED AT [address] (test njfd=7445) [facility] [address] POCT-GLUCOSE [id number] 09:00:00 Test Item Value Reference Range Comments POC-GLUCOSE METER (BEAKER) 259 mg/dL 70-110 TESTED AT [address] (test opaj=5621) [place] [id number] 06:29:00 Test Item Value Reference Range Comments PHOSPHORUS (BEAKER) (test nrly=213) 4.0 mg/dL 2.3-4.7 [id number] 06:29:00 Test Item Value Reference Range Comments MAGNESIUM (BEAKER) (test onap=361) 1.6 mg/dL 1.6-2.6 BASIC METABOLIC [id number] 06:29:00 Test Item Value Reference Range Comments SODIUM (BEAKER) (test 125 meq/L 136-145 jigf=988) POTASSIUM (BEAKER) (test 3.9 meq/L 3.5-5.1 etyk=025) CHLORIDE (BEAKER) (test 102 meq/L 98-107 dhvk=684) CO2 (BEAKER) (test 17 meq/L 22-29 ergw=014) BLOOD UREA NITROGEN 35 mg/dL 7-21 (BEAKER) (test cjvo=150) CREATININE (BEAKER) (test 1.60 mg/dL 0.57-1.25 ybvv=415) GLUCOSE RANDOM (BEAKER) 162 mg/dL 70-105 (test qvkx=223) CALCIUM (BEAKER) (test 8.7 mg/dL 8.4-10.2 mvtk=628) EGFR (BEAKER) (test 45 mL/min/1.73 sq m ESTIMATED GFR IS NOT upzu=6842) ACCURATE CREATININE CLEARANCE IN PREDICTING GLOMERULAR FILTRATION RATE. ESTIMATED GFR IS NOT APPLICABLE FOR DIALYSIS PATIENTS. PH, [id number] 05:47:00 Test Item Value Reference Range Comments PH VENOUS (BEAKER) (test jfzf=184) 7.39 7.32-7.42 CALCIUM, [id number] 05:47:00 Test Item Value Reference Range Comments CALCIUM IONIZED (BEAKER) (test ivit=776) 1.15 mmol/L 1.12-1.27 PH, BLOOD (BEAKER) (test jvlp=5312) 7.39 CBC W/PLT COUNT & AUTO [id number] 05:22:00 Test Item Value Reference Range Comments WHITE BLOOD CELL COUNT (BEAKER) (test khus=055) 4.5 K/ L 3.5-10.5 RED BLOOD CELL COUNT (BEAKER) (test krrw=266) 2.52 M/ L 4.63-6.08 HEMOGLOBIN (BEAKER) (test mwpc=193) 8.0 GM/DL 13.7-17.5 HEMATOCRIT (BEAKER) (test nkrd=581) 23.4 % 40.1-51.0 MEAN CORPUSCULAR VOLUME (BEAKER) (test mizn=894) 92.9 fL 79.0-92.2 MEAN CORPUSCULAR HEMOGLOBIN (BEAKER) (test 31.7 pg 25.7-32.2 gqhi=394) MEAN CORPUSCULAR HEMOGLOBIN CONC (BEAKER) (test 34.2 GM/DL 32.3-36.5 iybi=208) RED CELL DISTRIBUTION WIDTH (BEAKER) (test 14.7 % 11.6-14.4 plvl=028) PLATELET COUNT (BEAKER) (test mzki=483) 55 K/CU MM 150-450 MEAN PLATELET VOLUME (BEAKER) (test tahw=272) 9.4 fL 9.4-12.4 NUCLEATED RED BLOOD CELLS (BEAKER) (test 0 /100 WBC 0-0 hyab=662) NEUTROPHILS RELATIVE PERCENT (BEAKER) (test 82 % ozbi=164) LYMPHOCYTES RELATIVE PERCENT (BEAKER) (test 9 % csmk=559) MONOCYTES RELATIVE PERCENT (BEAKER) (test 9 % ypng=067) EOSINOPHILS RELATIVE PERCENT (BEAKER) (test 0 % gzgc=375) BASOPHILS RELATIVE PERCENT (BEAKER) (test 0 % rgpq=527) NEUTROPHILS ABSOLUTE COUNT (BEAKER) (test 3.68 K/ L 1.78-5.38 cpnw=372) LYMPHOCYTES ABSOLUTE COUNT (BEAKER) (test 0.38 K/ L 1.32-3.57 czbf=648) MONOCYTES ABSOLUTE COUNT (BEAKER) (test dtxa=434) 0.39 K/ L 0.30-0.82 EOSINOPHILS ABSOLUTE COUNT (BEAKER) (test 0.00 K/ L 0.04-0.54 yqum=185) BASOPHILS ABSOLUTE COUNT (BEAKER) (test dnph=747) 0.01 K/ L 0.01-0.08 IMMATURE GRANULOCYTES-RELATIVE PERCENT (BEAKER) 1 % 0-1 (test rigf=4113) POCT-GLUCOSE [id number] 20:56:00 Test Item Value Reference Range Comments POC-GLUCOSE METER (BEAKER) 199 mg/dL 70-110 TESTED AT [address] (test kkww=0690) [place] [address] POCT-GLUCOSE [id number] 17:21:00 Test Item Value Reference Range Comments POC-GLUCOSE METER (BEAKER) 184 mg/dL 70-110 TESTED AT [address] (test orht=2881) [place] [address] POCT-GLUCOSE [id number] 12:35:00 Test Item Value Reference Range Comments POC-GLUCOSE METER (BEAKER) 259 mg/dL 70-110 TESTED AT [address] (test caxu=6280) [place] [address] POCT-GLUCOSE [id number] 09:15:00 Test Item Value Reference Range Comments POC-GLUCOSE METER (BEAKER) 146 mg/dL 70-110 TESTED AT [address] (test anai=3385) [place] [address] CALCIUM, [id number] 07:31:00 Test Item Value Reference Range Comments CALCIUM IONIZED (BEAKER) (test sibl=673) 1.16 mmol/L 1.12-1.27 PH, BLOOD (BEAKER) (test ckux=3827) 7.36 CBC W/PLT COUNT & AUTO [id number] 06:59:00 Test Item Value Reference Range Comments WHITE BLOOD CELL COUNT (BEAKER) (test zgqs=982) 5.2 K/ L 3.5-10.5 RED BLOOD CELL COUNT (BEAKER) (test otqf=830) 2.47 M/ L 4.63-6.08 HEMOGLOBIN (BEAKER) (test mwqm=250) 7.8 GM/DL 13.7-17.5 HEMATOCRIT (BEAKER) (test umky=669) 23.5 % 40.1-51.0 MEAN CORPUSCULAR VOLUME (BEAKER) (test wnwn=823) 95.1 fL 79.0-92.2 MEAN CORPUSCULAR HEMOGLOBIN (BEAKER) (test 31.6 pg 25.7-32.2 nxrd=368) MEAN CORPUSCULAR HEMOGLOBIN CONC (BEAKER) (test 33.2 GM/DL 32.3-36.5 vifh=043) RED CELL DISTRIBUTION WIDTH (BEAKER) (test 14.9 % 11.6-14.4 qjsy=282) PLATELET COUNT (BEAKER) (test dcni=955) 57 K/CU MM 150-450 MEAN PLATELET VOLUME (BEAKER) (test roxp=732) 9.2 fL 9.4-12.4 NUCLEATED RED BLOOD CELLS (BEAKER) (test 0 /100 WBC 0-0 odkk=184) NEUTROPHILS RELATIVE PERCENT (BEAKER) (test 69 % qvqi=152) LYMPHOCYTES RELATIVE PERCENT (BEAKER) (test 10 % ageh=754) MONOCYTES RELATIVE PERCENT (BEAKER) (test 16 % ciea=729) EOSINOPHILS RELATIVE PERCENT (BEAKER) (test 4 % aphr=554) BASOPHILS RELATIVE PERCENT (BEAKER) (test 0 % aixu=305) NEUTROPHILS ABSOLUTE COUNT (BEAKER) (test 3.57 K/ L 1.78-5.38 pzhp=709) LYMPHOCYTES ABSOLUTE COUNT (BEAKER) (test 0.53 K/ L 1.32-3.57 knxo=276) MONOCYTES ABSOLUTE COUNT (BEAKER) (test vsra=780) 0.82 K/ L 0.30-0.82 EOSINOPHILS ABSOLUTE COUNT (BEAKER) (test 0.18 K/ L 0.04-0.54 kseg=364) BASOPHILS ABSOLUTE COUNT (BEAKER) (test upic=041) 0.02 K/ L 0.01-0.08 IMMATURE GRANULOCYTES-RELATIVE PERCENT (BEAKER) 1 % 0-1 (test oozm=4254) [id number] 06:00:00 Test Item Value Reference Range Comments PHOSPHORUS (BEAKER) (test lorb=660) 3.6 mg/dL 2.3-4.7 [id number] 06:00:00 Test Item Value Reference Range Comments MAGNESIUM (BEAKER) (test ureu=357) 1.8 mg/dL 1.6-2.6 BASIC METABOLIC [id number] 06:00:00 Test Item Value Reference Range Comments SODIUM (BEAKER) (test 128 meq/L 136-145 zdua=533) POTASSIUM (BEAKER) (test 3.9 meq/L 3.5-5.1 niac=737) CHLORIDE (BEAKER) (test 104 meq/L 98-107 nzkc=204) CO2 (BEAKER) (test 17 meq/L 22-29 mxxz=246) BLOOD UREA NITROGEN 38 mg/dL 7-21 (BEAKER) (test rjti=412) CREATININE (BEAKER) (test 1.80 mg/dL 0.57-1.25 pjcb=339) GLUCOSE RANDOM (BEAKER) 128 mg/dL 70-105 (test tstr=811) CALCIUM (BEAKER) (test 8.9 mg/dL 8.4-10.2 scgn=730) EGFR (BEAKER) (test 40 mL/min/1.73 sq m ESTIMATED GFR IS NOT ausg=9989) ACCURATE CREATININE CLEARANCE IN PREDICTING GLOMERULAR FILTRATION RATE. ESTIMATED GFR IS NOT APPLICABLE FOR DIALYSIS PATIENTS. HEPATIC FUNCTION [id number] 06:00:00 Test Item Value Reference Range Comments TOTAL PROTEIN (BEAKER) (test jkjl=619) 5.2 gm/dL 6.0-8.3 ALBUMIN (BEAKER) (test tgou=8364) 3.0 g/dL 3.5-5.0 BILIRUBIN TOTAL (BEAKER) (test ridr=001) 1.8 mg/dL 0.2-1.2 BILIRUBIN DIRECT (BEAKER) (test qzqv=082) 1.1 mg/dL 0.1-0.5 ALKALINE PHOSPHATASE (BEAKER) (test pzhf=508) 96 U/L 40-150 AST (SGOT) (BEAKER) (test mhai=939) 14 U/L 5-34 ALT (SGPT) (BEAKER) (test rtnd=880) 8 U/L 6-55 LACTIC ACID, VENOUS, WHOLE [id number] 05:51:00 Test Item Value Reference Range Comments LACTATE BLOOD VENOUS (2) 1.8 mmol/L 0.5-2.2 Specimen slightly hemolyzed (BEAKER) (test zbsn=8732) [id number] 05:45:00 Test Item Value Reference Range Comments PROTIME (BEAKER) (test cjjm=637) 21.8 seconds 11.7-14.7 INR (BEAKER) (test aizn=652) 1.9 <=5.9 PARTIAL THROMBOPLASTIN TIME (BEAKER) (test 51.1 seconds 22.5-36.0 ckei=218) RECOMMENDED COUMADIN/WARFARIN INR THERAPY RANGESSTANDARD DOSE: 2.0 - 3.0 Includes: PROPHYLAXIS forvenous thrombosis, systemic embolization; TREATMENT for venous thrombosis and/or pulmonary embolus.HIGH RISK: Target INR is 2.5-3.5 for patients with mechanical heart valves.CT, [id number] 22:17:00FINAL REPORT INDICATION:Abdominal pain. COMPARISON: Ultrasound abdomen duplexJan2017Abdomen pelvis CT May 08, 2018 TECHNIQUE: CT of the Abdomen and Pelvis WITHOUT intravenous contrast. Enteric contrast was used. The exam was performed according to our department dose-optimization protocol, which includes automated exposure control, adjustments of mA and kV according to patient size. Iterative reconstructions are also sometimes employed. FINDINGS :Slightly shrunken and irregular contour of the liver represents cirrhosis. No gross liver mass is demonstrated. Spleen isenlarged measuring 13 cm coronal long axis. There is diffuse moderate ascites and mesenteric edema. Innumerable tiny stones in the neck of the gallbladder are noted. Pancreas, adrenal glands, unremarkable. Kidneys are notable for increased density of the medulla suggesting medullary nephrocalcinosis. No gross renal mass is demonstrated. No hydronephrosis. Bladder is mildly distended and unremarkable.Prostate gland unremarkable. No bowel mass or bowel wall thickening is demonstrated. There is a 3 cmperiumbilical fascial defect through which protrudes two adjacent fat-and- uycedfvzfy-ftpee-pdfzuqzypz hernia sacs which together measure 11 cm TR by 6 cm AP by 8 cm SI. Scattered mild calcified plaqueof the abdominal aorta and iliac arteries noted. Extensive calcification of the visualized femoral arteries noted. There is diffuse severe osteopenia and compression fractures of all of the lumbar vertebral bodies and most of the lower thoracic vertebral bodies. Compression fractures of the L1 vertebral body is severe. There is a cemented augmentation of the L2, T12, and T11 vertebral bodies. Cemented augmentation and most of the compression fractures are new since April 2018. IMPRESSION: Cirrhosis with splenomegaly and moderate ascites. No gross liver mass demonstrated. Cholelithiasis. Medullary nephrocalcinosis. Periumbilical hernias , without entrapped bowel. Diffuse severe osteopenia and thoracolumbar compression fractures some with cemented augmentation. Most compression fractures are new since April 2018. Signed: Aristeo Xiong Verified Date/Time: 11/12/2018 22:17:07 Reading Location: [facility] [id number] Consult Reading Room 10: 17 PMU/S, [id number] 20:32:00Reason for exam:->HEShould this be performed at the bedside?->YesFINAL REPORT PROCEDURE: Ultrasound-guided paracentesis. INDICATION: Ascites. DESCRIPTION: After obtaining informed written consent, ultrasound scan of the abdomen identified ascites in the left lower quadrant. The overlying skin was prepped and draped in the usual, sterile fashion and local 1% lidocaine anesthesia was administered. A 5 Thai catheter was advanced into the peritoneal cavity and 4100 mL of cloudy yellow fluid was removed. The catheter was removed without immediate complication. Samples were sent for analysis. IMPRESSION: Uncomplicated ultrasound-guided paracentesis with 4100 mL of fluid removed. Signed: Stuart Dupree Verified Date/Time: 11/12/2018 20:32:52 Reading Location: [facility] [id number] Ultrasound Reading Room BODY FLUID CELL COUNT WITH [id number] 20:13:00 Test Item Value Reference Range Comments APPEARANCE FLUID (BEAKER) (test vfxq=618) Cloudy Clear COLOR FLUID (BEAKER) (test qpff=884) Yellow Colorless, Straw RBC FLUID (BEAKER) (test srcj=237) 78 /cu mm <=1 ADJUSTED WBC FLUID (BEAKER) (test lejx=1403) 1355 /cu mm <=5 LINING CELLS (BEAKER) (test ysth=6832) 0 /cu mm <=1 NEUTROPHILS FLUID (BEAKER) (test wwvy=1037) 84 % LYMPHS FLUID (BEAKER) (test akzc=444) 4 % MONO/MACROPHAGE FLUID (BEAKER) (test xdkn=087) 12 % EOSINOPHILS FLUID (BEAKER) (test lzuz=306) 0 % BASO FLUID (BEAKER) (test cynz=120) 0 % CONTAINER BODY FLUID (BEAKER) (test zgit=7434) EDTA Tube LACTIC ACID, VENOUS, WHOLE [id number] 18:05:00 Test Item Value Reference Range Comments LACTATE BLOOD VENOUS (2) (BEAKER) (test 2.0 mmol/L 0.5-2.2 yaif=2068) Draw after Albumin infusionPOCT-GLUCOSE [id number] 17:58:00 Test Item Value Reference Range Comments POC-GLUCOSE METER (BEAKER) 185 mg/dL 70-110 TESTED AT [facility] [address] [facility] (test aosk=6571) [facility] [address] POCT-GLUCOSE [id number] 17:36:00 Test Item Value Reference Range Comments POC-GLUCOSE METER (BEAKER) 201 mg/dL 70-110 TESTED AT [address] (test vgam=7570) [facility] [address] U/S, ABDOMINAL, [id number] 16:40:00Abdomen limited area? Add comment if clarification is needed.->Right upper quadrantReason for exam:->Hepatic encephalopathyplease complete doppler for hepatic vasculatureShould this be performed at the bedside?->YesFINAL REPORT TECHNIQUE: Grayscale ultrasound of the abdomen with color Doppler and spectral Doppler ultrasound of the portal/hepatic vasculature. INDICATION: Hepatic encephalopathy. COMPARISON: Ultrasound from 08/25/2018. FINDINGS: LIVER: Nodular and cirrhotic liver. HEPATIC VASCULATURE: Portal veins are patent with normal waveform and directionality. Flow velocity in the mainportal vein is within normal limits. The hepatic arteries are patent with normal flow velocities, resistive indices, and waveforms. The hepatic veins and confluence are patent. The main portal vein measures 1.5 cm. BILIARY:Gallbladder: Several layering gallstones. The gallbladder wall thickening is likely due to the cirrhosis and portal hypertension. Negative sonographic Bynum sign.Common bile duct measures 0.5 cm, within normal limits. No intrahepatic biliary ductal dilatation. PANCREAS: Incompletely visualized due to overlying bowel gas. SPLEEN : The spleen is at the upper limit of normal in sizeat 12.8 cm. PERITONEUM: Moderate to large volume ascites. KIDNEYS: Normal in size bilaterally. No hydronephrosis. No sonographically evident solid mass lesion. MIDLINE VASCULATURE: The visualized inferior vena cava is patent. The maximum visualized aortic diameter is 2.5 cm. Splenic artery and vein are patent. IMPRESSION: 1.Cirrhosis with sequelae of portal hypertension including moderate to large volume ascites. The spleen measures at the upper limit of normal in size. 2.The hepatic vasculature is patent. 3.Cholelithiasis without acute cholecystitis. Signed: Stuart Dupree MDReport Verified Date/Time: 11/12/2018 16:40 :20 Reading Location: [address] Ultrasound Reading Room U/S, DUPLEX, [id number] 16:40:00Please complete doppler for hepatic vasculatureReason for exam:-> hepatic encedphalopathyFINAL REPORT TECHNIQUE: Grayscale ultrasound of the abdomen with color Doppler and spectral Doppler ultrasound of the portal/hepatic vasculature. INDICATION: Hepatic encephalopathy. COMPARISON: Ultrasound from 08/25/2018. FINDINGS: LIVER: Nodular and cirrhotic liver. HEPATIC VASCULATURE: Portal veins are patent with normal waveform and directionality. Flow velocity in the mainportal vein is within normal limits. The hepatic arteries are patent with normal flow velocities, resistive indices, and waveforms. The hepatic veins and confluence are patent. The main portal vein measures 1.5 cm. BILIARY:Gallbladder: Several layering gallstones. The gallbladder wall thickening is likely due to the cirrhosis and portal hypertension. Negative sonographic Bynum sign.Common bile duct measures 0.5 cm , within normal limits. No intrahepatic biliary ductal dilatation. PANCREAS: Incompletely visualized due to overlying bowel gas. SPLEEN: The spleen is at the upper limit of normal in sizeat 12.8 cm. PERITONEUM: Moderate to large volume ascites. KIDNEYS: Normal in size bilaterally. No hydronephrosis. No sonographically evident solid mass lesion. MIDLINE VASCULATURE: The visualized inferior vena cava is patent. The maximum visualized aortic diameter is 2.5 cm. Splenic artery and vein are patent. IMPRESSION: 1.Cirrhosis with sequelae of portal hypertension including moderate to large volume ascites. The spleen measures at the upper limit of normal in size. 2.The hepatic vasculature is patent. 3.Cholelithiasis without acute cholecystitis. Signed: Stuart Dupree MDReport Verified Date/Time: 11/12/2018 16:40:20 Reading Location: [address] Ultrasound Reading Room SODIUM, RANDOM [id number] 16:29:00 Test Item Value Reference Range Comments SODIUM URINE (BEAKER) (test wtry=689) < meq/L Reference Range: No NormalsCREATININE, RANDOM [id number] 16:29:00 Test Item Value Reference Range Comments CREATININE URINE (BEAKER) (test wzyw=383) 237.3 mg/dL Reference Range: No NormalsPROTEIN, RANDOM [id number] 16:25:00 Test Item Value Reference Range Comments PROTEIN, URINE (BEAKER) (test wzfc=8547) 15 mg/dL 0-14 OSMOLALITY, [id number] 15:33:00 Test Item Value Reference Range Comments OSMOLALITY URINE (BEAKER) (test yuql=008) 575 mOsm/kg 40-1,400 URINALYSIS W/ REFLEX URINE [id number] 15:30:00 Test Item Value Reference Range Comments COLOR (BEAKER) (test xdbq=664) Yellow CLARITY (BEAKER) (test hbyl=653) Clear SPECIFIC GRAVITY UA (BEAKER) (test dwqy=665) 1.020 1.001-1.035 PH UA (BEAKER) (test fafc=515) 5.5 5.0-8.0 PROTEIN UA (BEAKER) (test qqux=991) 10 mg/dL Negative GLUCOSE UA (BEAKER) (test llob=453) Negative Negative KETONES UA (BEAKER) (test urex=448) Negative Negative BILIRUBIN UA (BEAKER) (test hbxv=752) Negative Negative BLOOD UA (BEAKER) (test meru=692) Small Negative NITRITE UA (BEAKER) (test ycxf=093) Negative Negative LEUKOCYTE ESTERASE UA (BEAKER) (test gwmq=900) Negative Negative UROBILINOGEN UA (BEAKER) (test hfrz=337) 0.2 mg/dL 0.2-1.0 RBC UA (BEAKER) (test kuhs=596) 5 /HPF WBC UA (BEAKER) (test ktbf=993) 3 /HPF HYALINE CASTS (BEAKER) (test vmcp=420) 7 /LPF SOURCE(BEAKER) (test vwex=0039) LACTIC ACID, VENOUS, WHOLE [id number] 14:42:00 Test Item Value Reference Range Comments LACTATE BLOOD VENOUS (2) (BEAKER) (test 3.2 mmol/L 0.5-2.2 sepw=8890) RAD, ABDOMEN/KUB, 1 VIEW [id number] 09:14:00Reason for exam:->persistent vomitignFINAL REPORT TECHNIQUE: Supine radiographs of the abdomen dated 11/12/2018 HISTORY: Persistent vomiting COMPARISON: None IMPRESSION:No air-filled, dilated loops of bowel to suggest obstruction. No free intraperitoneal air. No abnormal soft tissue mass. Multiple vertebral body compression fractures are seen with kyphoplasty material. Small calcification seen in the right upper quadrant are compatible with gallstones. Signed: Gabriela Navarroeport Verified Date/Time: 11/12/2018 09:14:36 Reading Location: [facility] Radiology Reading Room POCT-GLUCOSE [id number] 07:59:00 Test Item Value Reference Range Comments POC-GLUCOSE METER (BEAKER) 126 mg/dL 70-110 TESTED AT [facility] [address] [facility] (test qufb=6062) [facility] [address] [id number] 05:20:00 Test Item Value Reference Range Comments MAGNESIUM (BEAKER) (test xlio=771) 1.9 mg/dL 1.6-2.6 BASIC METABOLIC [id number] 05:20:00 Test Item Value Reference Range Comments SODIUM (BEAKER) (test 132 meq/L 136-145 mrid=992) POTASSIUM (BEAKER) (test 4.4 meq/L 3.5-5.1 eipr=239) CHLORIDE (BEAKER) (test 108 meq/L 98-107 gidx=322) CO2 (BEAKER) (test 20 meq/L 22-29 addd=786) BLOOD UREA NITROGEN 41 mg/dL 7-21 (BEAKER) (test jmxo=644) CREATININE (BEAKER) (test 1.91 mg/dL 0.57-1.25 sgvp=486) GLUCOSE RANDOM (BEAKER) 127 mg/dL 70-105 (test gbcv=273) CALCIUM (BEAKER) (test 9.0 mg/dL 8.4-10.2 wkhu=256) EGFR (BEAKER) (test 37 mL/min/1.73 sq m ESTIMATED GFR IS NOT nuqx=2693) ACCURATE CREATININE CLEARANCE IN PREDICTING GLOMERULAR FILTRATION RATE. ESTIMATED GFR IS NOT APPLICABLE FOR DIALYSIS PATIENTS. HEPATIC FUNCTION [id number] 05:20:00 Test Item Value Reference Range Comments TOTAL PROTEIN (BEAKER) (test nkqh=861) 5.4 gm/dL 6.0-8.3 ALBUMIN (BEAKER) (test qnyd=8194) 2.7 g/dL 3.5-5.0 BILIRUBIN TOTAL (BEAKER) (test seap=318) 2.0 mg/dL 0.2-1.2 BILIRUBIN DIRECT (BEAKER) (test ffvq=581) 1.2 mg/dL 0.1-0.5 ALKALINE PHOSPHATASE (BEAKER) (test qrew=240) 121 U/L 40-150 AST (SGOT) (BEAKER) (test bjlz=568) 18 U/L 5-34 ALT (SGPT) (BEAKER) (test hwvr=238) 10 U/L 6-55 PT/[id number] 05:05:00 Test Item Value Reference Range Comments PROTIME (BEAKER) (test kahl=892) 20.0 seconds 11.7-14.7 INR (BEAKER) (test ibzg=524) 1.7 <=5.9 PARTIAL THROMBOPLASTIN TIME (BEAKER) (test 42.4 seconds 22.5-36.0 npma=553) RECOMMENDED COUMADIN/WARFARIN INR THERAPY RANGESSTANDARD DOSE: 2.0 - 3.0 Includes: PROPHYLAXIS forvenous thrombosis, systemic embolization; TREATMENT for venous thrombosis and/or pulmonary embolus.HIGH RISK: Target INR is 2.5-3.5 for patients with mechanical heart valves.PROTHROMBIN TIME/[id number] 05:04: 00 Test Item Value Reference Range Comments PROTIME (BEAKER) (test lygy=638) 20.0 seconds 11.7-14.7 INR (BEAKER) (test htxy=159) 1.7 <=5.9 RECOMMENDED COUMADIN/WARFARIN INR THERAPY RANGESSTANDARD DOSE: 2.0 - 3.0 Includes: PROPHYLAXIS forvenous thrombosis, systemic embolization; TREATMENT for venous thrombosis and/or pulmonary embolus.HIGH RISK: Target INR is 2.5-3.5 for patients with mechanical heart valves.POCT-GLUCOSE [id number] 20:49:00 Test Item Value Reference Range Comments POC-GLUCOSE METER (BEAKER) 159 mg/dL 70-110 TESTED AT [address] (test kyqp=5218) [facility] [address] RAD, CHEST, 1 VIEW, NON [id number] 17:43:00Reason for exam:->evaluate for pnaShould this be performed at the bedside?->YesFINAL REPORT INDICATION: evaluate for pna COMPARISON:September 02, 2018 TECHNIQUE: Chest radiograph, single view, portable technique. FINDINGS / IMPRESSION: Lung volumes are low which decreases diagnostic accuracy. There is no discrete consolidation that would indicate pneumonia. Left retrocardiac coarse linear opacities probably atelectasis related to low lung volumes. No pneumothorax or pleural effusion demonstrated. Distal right clavicular fracture noted and seems nonacute. Signed: Aristeo Xiong MDReport Verified Date/Time: 11/11/2018 17: 43:24 Reading Location: [address] Consult Reading Room [id number] 02:29: 00 Test Item Value Reference Range Comments PROTIME (BEAKER) (test cayx=574) 19.1 seconds 11.7-14.7 INR (BEAKER) (test riiw=739) 1.6 <=5.9 PARTIAL THROMBOPLASTIN TIME (BEAKER) (test 42.2 seconds 22.5-36.0 lupi=108) RECOMMENDED COUMADIN/WARFARIN INR THERAPY RANGESSTANDARD DOSE: 2.0 - 3.0 Includes: PROPHYLAXIS forvenous thrombosis, systemic embolization; TREATMENT for venous thrombosis and/or pulmonary embolus.HIGH RISK: Target INR is 2.5-3.5 for patients with mechanical heart valves.[id number] 02:05:00 Test Item Value Reference Range Comments MAGNESIUM (BEAKER) (test rdgx=427) 2.2 mg/dL 1.6-2.6 BASIC METABOLIC [id number] 02:05:00 Test Item Value Reference Range Comments SODIUM (BEAKER) (test 130 meq/L 136-145 jman=747) POTASSIUM (BEAKER) (test 4.8 meq/L 3.5-5.1 ttpf=778) CHLORIDE (BEAKER) (test 105 meq/L 98-107 vgej=363) CO2 (BEAKER) (test 20 meq/L 22-29 fteo=597) BLOOD UREA NITROGEN 42 mg/dL 7-21 (BEAKER) (test wulr=412) CREATININE (BEAKER) (test 1.89 mg/dL 0.57-1.25 afwy=070) GLUCOSE RANDOM (BEAKER) 114 mg/dL 70-105 (test gsrm=882) CALCIUM (BEAKER) (test 9.2 mg/dL 8.4-10.2 kyfs=055) EGFR (BEAKER) (test 37 mL/min/1.73 sq m ESTIMATED GFR IS NOT fenl=5646) ACCURATE CREATININE CLEARANCE IN PREDICTING GLOMERULAR FILTRATION RATE. ESTIMATED GFR IS NOT APPLICABLE FOR DIALYSIS PATIENTS. Specimen slightly ictericHEPATIC FUNCTION [id number] 02:05:00 Test Item Value Reference Range Comments TOTAL PROTEIN (BEAKER) (test tmuv=238) 5.5 gm/dL 6.0-8.3 ALBUMIN (BEAKER) (test eerw=2497) 2.8 g/dL 3.5-5.0 BILIRUBIN TOTAL (BEAKER) (test scyx=082) 2.2 mg/dL 0.2-1.2 BILIRUBIN DIRECT (BEAKER) (test lpok=330) 1.3 mg/dL 0.1-0.5 ALKALINE PHOSPHATASE (BEAKER) (test qjss=918) 125 U/L 40-150 AST (SGOT) (BEAKER) (test amfl=018) 18 U/L 5-34 ALT (SGPT) (BEAKER) (test tbzm=472) 10 U/L 6-55 Specimen slightly [id number] 01:56:00 Test Item Value Reference Range Comments AMMONIA (BEAKER) (test ibvg=362) 74 mol/L 18-72 CBC W/PLT COUNT & AUTO [id number] 01:41:00 Test Item Value Reference Range Comments WHITE BLOOD CELL COUNT (BEAKER) (test prnr=902) 4.6 K/ L 3.5-10.5 RED BLOOD CELL COUNT (BEAKER) (test nqum=314) 2.69 M/ L 4.63-6.08 HEMOGLOBIN (BEAKER) (test ynly=393) 8.7 GM/DL 13.7-17.5 HEMATOCRIT (BEAKER) (test hwqo=543) 25.0 % 40.1-51.0 MEAN CORPUSCULAR VOLUME (BEAKER) (test hull=793) 92.9 fL 79.0-92.2 MEAN CORPUSCULAR HEMOGLOBIN (BEAKER) (test 32.3 pg 25.7-32.2 gzdw=038) MEAN CORPUSCULAR HEMOGLOBIN CONC (BEAKER) (test 34.8 GM/DL 32.3-36.5 lvnq=525) RED CELL DISTRIBUTION WIDTH (BEAKER) (test 15.0 % 11.6-14.4 fnzu=966) PLATELET COUNT (BEAKER) (test gffn=744) 63 K/CU MM 150-450 MEAN PLATELET VOLUME (BEAKER) (test mnrn=117) 9.1 fL 9.4-12.4 NUCLEATED RED BLOOD CELLS (BEAKER) (test 0 /100 WBC 0-0 upxk=270) NEUTROPHILS RELATIVE PERCENT (BEAKER) (test 65 % eimm=157) LYMPHOCYTES RELATIVE PERCENT (BEAKER) (test 15 % mzro=263) MONOCYTES RELATIVE PERCENT (BEAKER) (test 15 % tqgi=665) EOSINOPHILS RELATIVE PERCENT (BEAKER) (test 4 % lvna=913) BASOPHILS RELATIVE PERCENT (BEAKER) (test 0 % wdnj=200) NEUTROPHILS ABSOLUTE COUNT (BEAKER) (test 2.97 K/ L 1.78-5.38 ckfo=737) LYMPHOCYTES ABSOLUTE COUNT (BEAKER) (test 0.67 K/ L 1.32-3.57 qvsm=938) MONOCYTES ABSOLUTE COUNT (BEAKER) (test tzcz=908) 0.67 K/ L 0.30-0.82 EOSINOPHILS ABSOLUTE COUNT (BEAKER) (test 0.19 K/ L 0.04-0.54 hgzj=320) BASOPHILS ABSOLUTE COUNT (BEAKER) (test vgpo=118) 0.01 K/ L 0.01-0.08 IMMATURE GRANULOCYTES-RELATIVE PERCENT (BEAKER) 1 % 0-1 (test cbrr=6926) BODY FLUID CULTURE + GRAM [id number] 09:32:00 Test Item Value Reference Range Comments CULTURE (BEAKER) (test frye=1168) No growth GRAM STAIN RESULT (BEAKER) (test No WBCs wapp=5155) GRAM STAIN RESULT (BEAKER) (test No organisms seen hltl=24222) POCT-GLUCOSE [id number] 07:52:00 Test Item Value Reference Range Comments POC-GLUCOSE METER (BEAKER) 115 mg/dL 70-110 TESTED AT [facility] [address] [place] [address] (test ragr=0426) [facility] [address] [id number] 05:18:00 Test Item Value Reference Range Comments MAGNESIUM (BEAKER) (test ksmt=416) 1.9 mg/dL 1.6-2.6 COMPREHENSIVE METABOLIC [id number] 05:18:00 Test Item Value Reference Range Comments TOTAL PROTEIN (BEAKER) 5.2 gm/dL 6.0-8.3 (test sojk=790) ALBUMIN (BEAKER) (test 3.4 g/dL 3.5-5.0 yyum=8439) ALKALINE PHOSPHATASE 113 U/L 40-150 (BEAKER) (test arht=398) BILIRUBIN TOTAL (BEAKER) 2.9 mg/dL 0.2-1.2 (test osow=229) SODIUM (BEAKER) (test 131 meq/L 136-145 tzun=102) POTASSIUM (BEAKER) (test 4.0 meq/L 3.5-5.1 bdck=543) CHLORIDE (BEAKER) (test 101 meq/L 98-107 grna=449) CO2 (BEAKER) (test 21 meq/L 22-29 zsbb=011) BLOOD UREA NITROGEN 28 mg/dL 7-21 (BEAKER) (test slep=421) CREATININE (BEAKER) (test 1.65 mg/dL 0.57-1.25 ysbv=866) GLUCOSE RANDOM (BEAKER) 122 mg/dL 70-105 (test zuxi=723) CALCIUM (BEAKER) (test 9.3 mg/dL 8.4-10.2 rqcr=029) AST (SGOT) (BEAKER) (test 15 U/L 5-34 givg=581) ALT (SGPT) (BEAKER) (test 8 U/L 6-55 pkga=963) EGFR (BEAKER) (test 44 mL/min/1.73 sq m ESTIMATED GFR IS NOT fsml=7458) ACCURATE CREATININE CLEARANCE IN PREDICTING GLOMERULAR FILTRATION RATE. ESTIMATED GFR IS NOT APPLICABLE FOR DIALYSIS PATIENTS. Specimen slightly ictericPROTHROMBIN [id number] 04:48:00 Test Item Value Reference Range Comments PROTIME (BEAKER) (test yrnk=062) 20.9 seconds 11.7-14.7 INR (BEAKER) (test ozxu=686) 1.8 <=5.9 RECOMMENDED COUMADIN/WARFARIN INR THERAPY RANGESSTANDARD DOSE: 2.0 - 3.0 Includes: PROPHYLAXIS forvenous thrombosis, systemic embolization; TREATMENT for venous thrombosis and/or pulmonary embolus.HIGH RISK: Target INR is 2.5-3.5 for patients with mechanical heart valves.CBC W/PLT COUNT & AUTO [id number] 04:45:00 Test Item Value Reference Range Comments WHITE BLOOD CELL COUNT (BEAKER) (test onzs=960) 3.4 K/ L 3.5-10.5 RED BLOOD CELL COUNT (BEAKER) (test expy=626) 2.55 M/ L 4.63-6.08 HEMOGLOBIN (BEAKER) (test afwi=617) 8.1 GM/DL 13.7-17.5 HEMATOCRIT (BEAKER) (test wkli=826) 24.0 % 40.1-51.0 MEAN CORPUSCULAR VOLUME (BEAKER) (test fbwb=578) 94.1 fL 79.0-92.2 MEAN CORPUSCULAR HEMOGLOBIN (BEAKER) (test 31.8 pg 25.7-32.2 zekr=438) MEAN CORPUSCULAR HEMOGLOBIN CONC (BEAKER) (test 33.8 GM/DL 32.3-36.5 atef=400) RED CELL DISTRIBUTION WIDTH (BEAKER) (test 15.8 % 11.6-14.4 puvu=102) PLATELET COUNT (BEAKER) (test xmas=377) 41 K/CU MM 150-450 MEAN PLATELET VOLUME (BEAKER) (test jdmy=577) 10.0 fL 9.4-12.4 NUCLEATED RED BLOOD CELLS (BEAKER) (test 0 /100 WBC 0-0 ltot=507) NEUTROPHILS RELATIVE PERCENT (BEAKER) (test 63 % wggh=676) LYMPHOCYTES RELATIVE PERCENT (BEAKER) (test 19 % saza=035) MONOCYTES RELATIVE PERCENT (BEAKER) (test 16 % aubu=625) EOSINOPHILS RELATIVE PERCENT (BEAKER) (test 2 % hhtw=783) BASOPHILS RELATIVE PERCENT (BEAKER) (test 0 % mkij=855) NEUTROPHILS ABSOLUTE COUNT (BEAKER) (test 2.13 K/ L 1.78-5.38 zqzc=240) LYMPHOCYTES ABSOLUTE COUNT (BEAKER) (test 0.62 K/ L 1.32-3.57 zwuv=766) MONOCYTES ABSOLUTE COUNT (BEAKER) (test smxo=351) 0.52 K/ L 0.30-0.82 EOSINOPHILS ABSOLUTE COUNT (BEAKER) (test 0.08 K/ L 0.04-0.54 xzoa=044) BASOPHILS ABSOLUTE COUNT (BEAKER) (test kxrh=766) 0.00 K/ L 0.01-0.08 IMMATURE GRANULOCYTES-RELATIVE PERCENT (BEAKER) 0 % 0-1 (test etft=7525) POCT-GLUCOSE [id number] 21:35:00 Test Item Value Reference Range Comments POC-GLUCOSE METER (BEAKER) 215 mg/dL 70-110 TESTED AT [address] (test ycxy=3495) [facility] [address] POCT-GLUCOSE [id number] 18:17:00 Test Item Value Reference Range Comments POC-GLUCOSE METER (BEAKER) 149 mg/dL 70-110 TESTED AT [address] (test lwjr=6869) [facility] [address] COMPREHENSIVE METABOLIC [id number] 07:34:00 Test Item Value Reference Range Comments TOTAL PROTEIN (BEAKER) 4.7 gm/dL 6.0-8.3 Specimen slightly (test xyrr=661) hemolyzed ALBUMIN (BEAKER) (test 3.0 g/dL 3.5-5.0 Specimen slightly sowf=7322) hemolyzed ALKALINE PHOSPHATASE 107 U/L 40-150 (BEAKER) (test ejnj=426) BILIRUBIN TOTAL (BEAKER) 3.1 mg/dL 0.2-1.2 Specimen slightly (test lsui=565) hemolyzed SODIUM (BEAKER) (test 125 meq/L 136-145 ixdc=149) POTASSIUM (BEAKER) (test 4.9 meq/L 3.5-5.1 Specimen slightly uinb=430) hemolyzed CHLORIDE (BEAKER) (test 96 meq/L 98-107 rdgm=433) CO2 (BEAKER) (test 24 meq/L 22-29 yctq=952) BLOOD UREA NITROGEN 30 mg/dL 7-21 (BEAKER) (test uaks=542) CREATININE (BEAKER) (test 1.61 mg/dL 0.57-1.25 Specimen slightly bkvx=587) hemolyzed GLUCOSE RANDOM (BEAKER) 127 mg/dL 70-105 (test cvnx=030) CALCIUM (BEAKER) (test 8.6 mg/dL 8.4-10.2 rkea=601) AST (SGOT) (BEAKER) (test 17 U/L 5-34 Specimen slightly cpzx=933) hemolyzed ALT (SGPT) (BEAKER) (test < U/L 6-55 Specimen slightly tupb=313) hemolyzed EGFR (BEAKER) (test 45 mL/min/1.73 sq m ESTIMATED GFR IS NOT jeok=9788) ACCURATE CREATININE CLEARANCE IN PREDICTING GLOMERULAR FILTRATION RATE. ESTIMATED GFR IS NOT APPLICABLE FOR DIALYSIS PATIENTS. Specimen slightly [id number] 06:49:00 Test Item Value Reference Range Comments PHOSPHORUS (BEAKER) (test buds=736) 3.0 mg/dL 2.3-4.7 [id number] 06:49:00 Test Item Value Reference Range Comments MAGNESIUM (BEAKER) (test pmuj=347) 2.0 mg/dL 1.6-2.6 PROTHROMBIN [id number] 06:39:00 Test Item Value Reference Range Comments PROTIME (BEAKER) (test rhuo=555) 23.0 seconds 11.7-14.7 INR (BEAKER) (test ulkf=811) 2.0 <=5.9 RECOMMENDED COUMADIN/WARFARIN INR THERAPY RANGESSTANDARD DOSE: 2.0 - 3.0 Includes: PROPHYLAXIS forvenous thrombosis, systemic embolization; TREATMENT for venous thrombosis and/or pulmonary embolus.HIGH RISK: Target INR is 2.5-3.5 for patients with mechanical heart valves.CBC W/PLT COUNT & AUTO [id number] 06:37:00 Test Item Value Reference Range Comments WHITE BLOOD CELL COUNT (BEAKER) (test hhpf=200) 3.3 K/ L 3.5-10.5 RED BLOOD CELL COUNT (BEAKER) (test juvs=526) 2.43 M/ L 4.63-6.08 HEMOGLOBIN (BEAKER) (test oeer=618) 7.8 GM/DL 13.7-17.5 HEMATOCRIT (BEAKER) (test xune=643) 22.7 % 40.1-51.0 MEAN CORPUSCULAR VOLUME (BEAKER) (test lmyn=644) 93.4 fL 79.0-92.2 MEAN CORPUSCULAR HEMOGLOBIN (BEAKER) (test 32.1 pg 25.7-32.2 ynci=598) MEAN CORPUSCULAR HEMOGLOBIN CONC (BEAKER) (test 34.4 GM/DL 32.3-36.5 kbah=404) RED CELL DISTRIBUTION WIDTH (BEAKER) (test 15.7 % 11.6-14.4 gtee=916) PLATELET COUNT (BEAKER) (test vzmj=657) 37 K/CU MM 150-450 MEAN PLATELET VOLUME (BEAKER) (test prwo=893) 9.6 fL 9.4-12.4 NUCLEATED RED BLOOD CELLS (BEAKER) (test 0 /100 WBC 0-0 jdem=212) NEUTROPHILS RELATIVE PERCENT (BEAKER) (test 70 % rzfk=991) LYMPHOCYTES RELATIVE PERCENT (BEAKER) (test 16 % wysq=558) MONOCYTES RELATIVE PERCENT (BEAKER) (test 11 % tomm=632) EOSINOPHILS RELATIVE PERCENT (BEAKER) (test 2 % wfeh=459) BASOPHILS RELATIVE PERCENT (BEAKER) (test 0 % hstx=947) NEUTROPHILS ABSOLUTE COUNT (BEAKER) (test 2.29 K/ L 1.78-5.38 dscv=431) LYMPHOCYTES ABSOLUTE COUNT (BEAKER) (test 0.51 K/ L 1.32-3.57 bcjx=499) MONOCYTES ABSOLUTE COUNT (BEAKER) (test xxbf=011) 0.37 K/ L 0.30-0.82 EOSINOPHILS ABSOLUTE COUNT (BEAKER) (test 0.07 K/ L 0.04-0.54 cgvd=398) BASOPHILS ABSOLUTE COUNT (BEAKER) (test cups=683) 0.01 K/ L 0.01-0.08 IMMATURE GRANULOCYTES-RELATIVE PERCENT (BEAKER) 0 % 0-1 (test odrb=2083) CALCIUM, [id number] 06:36:00 Test Item Value Reference Range Comments CALCIUM IONIZED (BEAKER) (test cqud=223) 1.00 mmol/L 1.12-1.27 PH, BLOOD (BEAKER) (test wzpl=5038) 7.53 POCT-GLUCOSE [id number] 22:31:00 Test Item Value Reference Range Comments POC-GLUCOSE METER (BEAKER) 185 mg/dL 70-110 TESTED AT [address] (test anih=6188) [place] [id number] POCT-GLUCOSE [id number] 16:03:00 Test Item Value Reference Range Comments POC-GLUCOSE METER (BEAKER) 166 mg/dL 70-110 TESTED AT [address] (test vccn=3677) [place] [id number] POCT-GLUCOSE [id number] 12:05:00 Test Item Value Reference Range Comments POC-GLUCOSE METER (BEAKER) 175 mg/dL 70-110 TESTED AT [address] (test bgqw=8793) [place] [id number] POCT-GLUCOSE [id number] 08:02:00 Test Item Value Reference Range Comments POC-GLUCOSE METER (BEAKER) 162 mg/dL 70-110 TESTED AT [address] (test yeav=2371) [facility] [address] [id number] 03:52:00 Test Item Value Reference Range Comments MAGNESIUM (BEAKER) (test 2.1 mg/dL 1.6-2.6 Specimen slightly hemolyzed eqyf=849) [id number] 03:52:00 Test Item Value Reference Range Comments PHOSPHORUS (BEAKER) (test 3.0 mg/dL 2.3-4.7 Specimen slightly hemolyzed zezd=596) COMPREHENSIVE METABOLIC [id number] 03:52:00 Test Item Value Reference Range Comments TOTAL PROTEIN (BEAKER) 4.9 gm/dL 6.0-8.3 Specimen slightly (test ewic=124) hemolyzed ALBUMIN (BEAKER) (test 3.2 g/dL 3.5-5.0 Specimen slightly mtoq=7508) hemolyzed ALKALINE PHOSPHATASE 109 U/L 40-150 (BEAKER) (test mufb=688) BILIRUBIN TOTAL (BEAKER) 2.7 mg/dL 0.2-1.2 Specimen slightly (test bwew=506) hemolyzed SODIUM (BEAKER) (test 125 meq/L 136-145 qduz=848) POTASSIUM (BEAKER) (test 4.7 meq/L 3.5-5.1 Specimen slightly gdoc=842) hemolyzed CHLORIDE (BEAKER) (test 96 meq/L 98-107 ghio=198) CO2 (BEAKER) (test 23 meq/L 22-29 dwsr=320) BLOOD UREA NITROGEN 27 mg/dL 7-21 (BEAKER) (test fukz=306) CREATININE (BEAKER) (test 1.86 mg/dL 0.57-1.25 Specimen slightly nxwm=426) hemolyzed GLUCOSE RANDOM (BEAKER) 164 mg/dL 70-105 (test liso=322) CALCIUM (BEAKER) (test 8.4 mg/dL 8.4-10.2 sxjw=347) AST (SGOT) (BEAKER) (test 17 U/L 5-34 Specimen slightly lknk=690) hemolyzed ALT (SGPT) (BEAKER) (test 6 U/L 6-55 Specimen slightly ywob=147) hemolyzed EGFR (BEAKER) (test 38 mL/min/1.73 sq m ESTIMATED GFR IS NOT hyfd=3989) ACCURATE CREATININE CLEARANCE IN PREDICTING GLOMERULAR FILTRATION RATE. ESTIMATED GFR IS NOT APPLICABLE FOR DIALYSIS PATIENTS. Specimen slightly ictericCALCIUM, [id number] 03:13:00 Test Item Value Reference Range Comments CALCIUM IONIZED (BEAKER) (test mbdr=774) 0.94 mmol/L 1.12-1.27 PH, BLOOD (BEAKER) (test ryit=4128) 7.55 PROTHROMBIN [id number] 03:10:00 Test Item Value Reference Range Comments PROTIME (BEAKER) (test xhls=358) 22.6 seconds 11.7-14.7 INR (BEAKER) (test yzjb=036) 2.0 <=5.9 RECOMMENDED COUMADIN/WARFARIN INR THERAPY RANGESSTANDARD DOSE: 2.0 - 3.0 Includes: PROPHYLAXIS forvenous thrombosis, systemic embolization; TREATMENT for venous thrombosis and/or pulmonary embolus.HIGH RISK: Target INR is 2.5-3.5 for patients with mechanical heart valves.CBC W/PLT COUNT & AUTO [id number] 03:03:00 Test Item Value Reference Range Comments WHITE BLOOD CELL COUNT (BEAKER) (test nnti=593) 3.4 K/ L 3.5-10.5 RED BLOOD CELL COUNT (BEAKER) (test grfg=944) 2.46 M/ L 4.63-6.08 HEMOGLOBIN (BEAKER) (test hnoh=884) 7.8 GM/DL 13.7-17.5 HEMATOCRIT (BEAKER) (test pvcy=543) 23.5 % 40.1-51.0 MEAN CORPUSCULAR VOLUME (BEAKER) (test gmis=308) 95.5 fL 79.0-92.2 MEAN CORPUSCULAR HEMOGLOBIN (BEAKER) (test 31.7 pg 25.7-32.2 yzji=234) MEAN CORPUSCULAR HEMOGLOBIN CONC (BEAKER) (test 33.2 GM/DL 32.3-36.5 proh=920) RED CELL DISTRIBUTION WIDTH (BEAKER) (test 15.6 % 11.6-14.4 uxbf=610) PLATELET COUNT (BEAKER) (test clso=397) 44 K/CU MM 150-450 MEAN PLATELET VOLUME (BEAKER) (test ewux=172) 10.6 fL 9.4-12.4 NUCLEATED RED BLOOD CELLS (BEAKER) (test 0 /100 WBC 0-0 grou=467) NEUTROPHILS RELATIVE PERCENT (BEAKER) (test 79 % qgfa=404) LYMPHOCYTES RELATIVE PERCENT (BEAKER) (test 12 % xubb=595) MONOCYTES RELATIVE PERCENT (BEAKER) (test 8 % kcmw=842) EOSINOPHILS RELATIVE PERCENT (BEAKER) (test 0 % hldv=178) BASOPHILS RELATIVE PERCENT (BEAKER) (test 0 % ilpr=865) NEUTROPHILS ABSOLUTE COUNT (BEAKER) (test 2.67 K/ L 1.78-5.38 qxam=838) LYMPHOCYTES ABSOLUTE COUNT (BEAKER) (test 0.41 K/ L 1.32-3.57 drud=716) MONOCYTES ABSOLUTE COUNT (BEAKER) (test bknb=786) 0.27 K/ L 0.30-0.82 EOSINOPHILS ABSOLUTE COUNT (BEAKER) (test 0.01 K/ L 0.04-0.54 htkf=866) BASOPHILS ABSOLUTE COUNT (BEAKER) (test sdak=285) 0.01 K/ L 0.01-0.08 IMMATURE GRANULOCYTES-RELATIVE PERCENT (BEAKER) 0 % 0-1 (test rogw=9589) POCT-GLUCOSE [id number] 22:50:00 Test Item Value Reference Range Comments POC-GLUCOSE METER (BEAKER) 199 mg/dL 70-110 TESTED AT [facility] [address] [facility] (test vjzm=2320) [facility] [address] BODY FLUID CELL COUNT WITH [id number] 21:09:00 Test Item Value Reference Range Comments APPEARANCE FLUID (BEAKER) (test gajd=002) Clear Clear COLOR FLUID (BEAKER) (test bfcq=698) Yellow Colorless, Straw RBC FLUID (BEAKER) (test vsfw=501) 140 /cu mm <=1 ADJUSTED WBC FLUID (BEAKER) (test flap=6483) 70 /cu mm <=5 LINING CELLS (BEAKER) (test wgqp=9228) 0 /cu mm <=1 NEUTROPHILS FLUID (BEAKER) (test qzyb=9444) 5 % LYMPHS FLUID (BEAKER) (test vzkg=052) 18 % MONO/MACROPHAGE FLUID (BEAKER) (test kxwi=403) 77 % EOSINOPHILS FLUID (BEAKER) (test ixkm=102) 0 % BASO FLUID (BEAKER) (test wssr=841) 0 % CONTAINER BODY FLUID (BEAKER) (test tsam=0127) EDTA Tube CORTISOL,60 [id number] 20:10:00 Test Item Value Reference Range Comments CORTISOL BASELINE NETWORKED (BEAKER) (test 5.6 mcg/dL kvni=5337) CORTISOL 30 MINUTE NETWORKED (BEAKER) (test 13.7 mcg/dL ztsa=0424) CORTISOL, 60 MINUTE (BEAKER) (test xgzb=5187) 17.1 ug/dL ACTH STIMULATION TEST INTERPRETATION GUIDELINES(Synonyms: [...] serum cortisollevel 60 minutes after cosyntropin administration.CORTISOL,30 [id number] 19:45:00 Test Item Value Reference Range Comments CORTISOL BASELINE NETWORKED (BEAKER) (test 5.6 mcg/dL xuox=3194) CORTISOL, 30 MINUTE (BEAKER) (test spmq=0650) 13.7 ug/dL ACTH STIMULATION TEST INTERPRETATION GUIDELINES(Synonyms: [...] study by Mindy et al (NEVAEH 2000,283( 8):3383-45), the ACTH Stimulation Test provides important prognostic [...] serum cortisollevel 60 minutes after cosyntropin administration.U/S, [id number] 19:13:00Reason for exam:->therapeuticFINAL REPORT PROCEDURE: Ultrasound- guided paracentesis. INDICATION: Ascites. DESCRIPTION: After obtaining informed written consent, ultrasound scan of the abdomen identified ascites in the right lower quadrant. The overlying skin was prepped and draped in the usual, sterile fashion and local 1% lidocaine anesthesia was administered. A 5 Thai catheter was advanced into the peritoneal cavity and 6000 mL of area fluid was removed. The catheter was removed without immediate complication. Samples were sent for analysis. IMPRESSION:Uncomplicated ultrasound-guided paracentesis with 6000 mL of fluid removed. Signed: Stuart Dupree Verified Date/Time: 09/08/2018 19 :13:16 Reading Location: [address] Ultrasound Reading Room Electronically signed by: Claudia WEAVER 09/08/2018 07:13 PMCORTISOL, [id number] 18:54:00 Test Item Value Reference Range Comments CORTISOL, BASELINE (BEAKER) (test bbfw=0821) 5.6 ug/dL ACTH STIMULATION TEST INTERPRETATION GUIDELINES(Synonyms: [...] serum cortisollevel 60 minutes after cosyntropin administration.POCT-GLUCOSE [id number] 12:49:00 Test Item Value Reference Range Comments POC-GLUCOSE METER (BEAKER) 184 mg/dL 70-110 TESTED AT [address] (test jvyd=4382) [facility] [address] POCT-GLUCOSE [id number] 07:56:00 Test Item Value Reference Range Comments POC-GLUCOSE METER (BEAKER) 174 mg/dL 70-110 TESTED AT [address] (test noei=9591) [facility] [address] B-TYPE NATRIURETIC FACTOR (BNP)2018-09-08 05:20:00 Test Item Value Reference Range Comments B-TYPE NATRIURETIC PEPTIDE (BEAKER) (test 900 pg/mL 0-100 ecxj=792) [id number] 05:15:00 Test Item Value Reference Range Comments PHOSPHORUS (BEAKER) (test rxzm=823) 3.2 mg/dL 2.3-4.7 [id number] 05:15:00 Test Item Value Reference Range Comments MAGNESIUM (BEAKER) (test bjeg=310) 2.1 mg/dL 1.6-2.6 COMPREHENSIVE METABOLIC [id number] 05:15:00 Test Item Value Reference Range Comments TOTAL PROTEIN (BEAKER) 4.9 gm/dL 6.0-8.3 (test adbd=216) ALBUMIN (BEAKER) (test 3.2 g/dL 3.5-5.0 yxyu=7872) ALKALINE PHOSPHATASE 109 U/L 40-150 (BEAKER) (test gwyp=945) BILIRUBIN TOTAL (BEAKER) 2.7 mg/dL 0.2-1.2 (test zgyd=984) SODIUM (BEAKER) (test 128 meq/L 136-145 nrcm=082) POTASSIUM (BEAKER) (test 3.9 meq/L 3.5-5.1 wtar=128) CHLORIDE (BEAKER) (test 98 meq/L 98-107 sjrl=879) CO2 (BEAKER) (test 23 meq/L 22-29 rsgb=146) BLOOD UREA NITROGEN 27 mg/dL 7-21 (BEAKER) (test vlib=157) CREATININE (BEAKER) (test 2.17 mg/dL 0.57-1.25 jhti=793) GLUCOSE RANDOM (BEAKER) 136 mg/dL 70-105 (test svqw=825) CALCIUM (BEAKER) (test 8.6 mg/dL 8.4-10.2 ujmo=076) AST (SGOT) (BEAKER) (test 15 U/L 5-34 frxd=950) ALT (SGPT) (BEAKER) (test 7 U/L 6-55 fuuh=931) EGFR (BEAKER) (test 32 mL/min/1.73 sq m ESTIMATED GFR IS NOT catn=8916) ACCURATE CREATININE CLEARANCE IN PREDICTING GLOMERULAR FILTRATION RATE. ESTIMATED GFR IS NOT APPLICABLE FOR DIALYSIS PATIENTS. Specimen slightly ictericPROTHROMBIN [id number] 05:01:00 Test Item Value Reference Range Comments PROTIME (BEAKER) (test rvjk=041) 22.0 seconds 11.7-14.7 INR (BEAKER) (test kcxx=277) 1.9 <=5.9 RECOMMENDED COUMADIN/WARFARIN INR THERAPY RANGESSTANDARD DOSE: 2.0 - 3.0 Includes: PROPHYLAXIS forvenous thrombosis, systemic embolization; TREATMENT for venous thrombosis and/or pulmonary embolus.HIGH RISK: Target INR is 2.5-3.5 for patients with mechanical heart valves.CBC W/PLT COUNT & AUTO [id number] 04:55:00 Test Item Value Reference Range Comments WHITE BLOOD CELL COUNT (BEAKER) (test axtb=757) 4.3 K/ L 3.5-10.5 RED BLOOD CELL COUNT (BEAKER) (test pxvv=010) 2.46 M/ L 4.63-6.08 HEMOGLOBIN (BEAKER) (test hcrp=947) 7.9 GM/DL 13.7-17.5 HEMATOCRIT (BEAKER) (test tfmz=600) 23.3 % 40.1-51.0 MEAN CORPUSCULAR VOLUME (BEAKER) (test rsio=864) 94.7 fL 79.0-92.2 MEAN CORPUSCULAR HEMOGLOBIN (BEAKER) (test 32.1 pg 25.7-32.2 jbbm=390) MEAN CORPUSCULAR HEMOGLOBIN CONC (BEAKER) (test 33.9 GM/DL 32.3-36.5 ozmt=543) RED CELL DISTRIBUTION WIDTH (BEAKER) (test 15.6 % 11.6-14.4 itxq=086) PLATELET COUNT (BEAKER) (test jchf=312) 43 K/CU MM 150-450 MEAN PLATELET VOLUME (BEAKER) (test norr=546) 9.6 fL 9.4-12.4 NUCLEATED RED BLOOD CELLS (BEAKER) (test 0 /100 WBC 0-0 cwrj=003) NEUTROPHILS RELATIVE PERCENT (BEAKER) (test 63 % fetw=401) LYMPHOCYTES RELATIVE PERCENT (BEAKER) (test 13 % xiwv=788) MONOCYTES RELATIVE PERCENT (BEAKER) (test 19 % yhku=723) EOSINOPHILS RELATIVE PERCENT (BEAKER) (test 5 % yndp=272) BASOPHILS RELATIVE PERCENT (BEAKER) (test 0 % xmyi=042) NEUTROPHILS ABSOLUTE COUNT (BEAKER) (test 2.72 K/ L 1.78-5.38 jgic=561) LYMPHOCYTES ABSOLUTE COUNT (BEAKER) (test 0.55 K/ L 1.32-3.57 awvw=913) MONOCYTES ABSOLUTE COUNT (BEAKER) (test bkeu=778) 0.81 K/ L 0.30-0.82 EOSINOPHILS ABSOLUTE COUNT (BEAKER) (test 0.21 K/ L 0.04-0.54 enpe=429) BASOPHILS ABSOLUTE COUNT (BEAKER) (test qvkh=587) 0.01 K/ L 0.01-0.08 IMMATURE GRANULOCYTES-RELATIVE PERCENT (BEAKER) 0 % 0-1 (test giaz=6465) POCT-GLUCOSE [id number] 23:33:00 Test Item Value Reference Range Comments POC-GLUCOSE METER (BEAKER) 156 mg/dL 70-110 TESTED AT [address] (test wvkp=2913) [facility] [address] POCT-GLUCOSE [id number] 18:09:00 Test Item Value Reference Range Comments POC-GLUCOSE METER (BEAKER) 170 mg/dL 70-110 TESTED AT [address] (test otgx=1775) [facility] [address] POCT-GLUCOSE [id number] 12:01:00 Test Item Value Reference Range Comments POC-GLUCOSE METER (BEAKER) 181 mg/dL 70-110 TESTED AT [address] (test pzgn=2473) [facility] [address] PROTHROMBIN [id number] 08:17:00 Test Item Value Reference Range Comments PROTIME (BEAKER) (test ienr=669) 21.9 seconds 11.7-14.7 INR (BEAKER) (test ixzx=577) 1.9 <=5.9 RECOMMENDED COUMADIN/WARFARIN INR THERAPY RANGESSTANDARD DOSE: 2.0 - 3.0 Includes: PROPHYLAXIS forvenous thrombosis, systemic embolization; TREATMENT for venous thrombosis and/or pulmonary embolus.HIGH RISK: Target INR is 2.5-3.5 for patients with mechanical heart valves.POCT-GLUCOSE [id number] 08:07:00 Test Item Value Reference Range Comments POC-GLUCOSE METER (BEAKER) 205 mg/dL 70-110 TESTED AT [facility] [address] [facility] (test iypi=4637) [facility] [facility] [address] COMPREHENSIVE METABOLIC [id number] 07:29:00 Test Item Value Reference Range Comments TOTAL PROTEIN (BEAKER) 4.9 gm/dL 6.0-8.3 (test nebg=834) ALBUMIN (BEAKER) (test 3.3 g/dL 3.5-5.0 sqad=7171) ALKALINE PHOSPHATASE 106 U/L 40-150 (BEAKER) (test alxr=838) BILIRUBIN TOTAL (BEAKER) 2.6 mg/dL 0.2-1.2 (test pser=699) SODIUM (BEAKER) (test 129 meq/L 136-145 ioux=937) POTASSIUM (BEAKER) (test 4.9 meq/L 3.5-5.1 xhmv=898) CHLORIDE (BEAKER) (test 98 meq/L 98-107 bjak=345) CO2 (BEAKER) (test 23 meq/L 22-29 rexh=821) BLOOD UREA NITROGEN 28 mg/dL 7-21 (BEAKER) (test hnsf=763) CREATININE (BEAKER) (test 2.31 mg/dL 0.57-1.25 lluy=046) GLUCOSE RANDOM (BEAKER) 172 mg/dL 70-105 (test elww=469) CALCIUM (BEAKER) (test 8.5 mg/dL 8.4-10.2 epkj=513) AST (SGOT) (BEAKER) (test 15 U/L 5-34 nrvu=946) ALT (SGPT) (BEAKER) (test 6 U/L 6-55 rsrk=971) EGFR (BEAKER) (test 30 mL/min/1.73 sq m ESTIMATED GFR IS NOT bavd=8318) ACCURATE CREATININE CLEARANCE IN PREDICTING GLOMERULAR FILTRATION RATE. ESTIMATED GFR IS NOT APPLICABLE FOR DIALYSIS PATIENTS. Specimen slightly ictericCBC W/PLT COUNT & AUTO [id number] 07:11 :00 Test Item Value Reference Range Comments WHITE BLOOD CELL COUNT (BEAKER) (test nqfn=910) 4.5 K/ L 3.5-10.5 RED BLOOD CELL COUNT (BEAKER) (test xgam=977) 2.47 M/ L 4.63-6.08 HEMOGLOBIN (BEAKER) (test twwl=177) 7.8 GM/DL 13.7-17.5 HEMATOCRIT (BEAKER) (test qmkd=705) 23.3 % 40.1-51.0 MEAN CORPUSCULAR VOLUME (BEAKER) (test smnd=564) 94.3 fL 79.0-92.2 MEAN CORPUSCULAR HEMOGLOBIN (BEAKER) (test 31.6 pg 25.7-32.2 ysve=744) MEAN CORPUSCULAR HEMOGLOBIN CONC (BEAKER) (test 33.5 GM/DL 32.3-36.5 huje=996) RED CELL DISTRIBUTION WIDTH (BEAKER) (test 15.4 % 11.6-14.4 wiwe=636) PLATELET COUNT (BEAKER) (test kwrt=688) 43 K/CU MM 150-450 MEAN PLATELET VOLUME (BEAKER) (test siyo=715) 8.7 fL 9.4-12.4 NUCLEATED RED BLOOD CELLS (BEAKER) (test 0 /100 WBC 0-0 mksn=779) NEUTROPHILS RELATIVE PERCENT (BEAKER) (test 64 % lxrc=179) LYMPHOCYTES RELATIVE PERCENT (BEAKER) (test 11 % vccz=304) MONOCYTES RELATIVE PERCENT (BEAKER) (test 20 % tsiz=009) EOSINOPHILS RELATIVE PERCENT (BEAKER) (test 4 % rpgk=597) BASOPHILS RELATIVE PERCENT (BEAKER) (test 0 % ijwi=094) NEUTROPHILS ABSOLUTE COUNT (BEAKER) (test 2.86 K/ L 1.78-5.38 edxf=827) LYMPHOCYTES ABSOLUTE COUNT (BEAKER) (test 0.49 K/ L 1.32-3.57 hdly=116) MONOCYTES ABSOLUTE COUNT (BEAKER) (test omrm=702) 0.90 K/ L 0.30-0.82 EOSINOPHILS ABSOLUTE COUNT (BEAKER) (test 0.18 K/ L 0.04-0.54 wcth=524) BASOPHILS ABSOLUTE COUNT (BEAKER) (test lpfx=911) 0.02 K/ L 0.01-0.08 IMMATURE GRANULOCYTES-RELATIVE PERCENT (BEAKER) 0 % 0-1 (test rhag=0970) POCT-GLUCOSE [id number] 22:31:00 Test Item Value Reference Range Comments POC-GLUCOSE METER (BEAKER) 161 mg/dL 70-110 TESTED AT [address] (test rinr=1157) [facility] [address] POCT-GLUCOSE [id number] 16:31:00 Test Item Value Reference Range Comments POC-GLUCOSE METER (BEAKER) 135 mg/dL 70-110 TESTED AT [address] (test dsvu=6088) [facility] [address] POCT-GLUCOSE [id number] 12:16:00 Test Item Value Reference Range Comments POC-GLUCOSE METER (BEAKER) 144 mg/dL 70-110 TESTED AT [address] (test pwxn=5684) [facility] [address] POCT-GLUCOSE [id number] 07:53:00 Test Item Value Reference Range Comments POC-GLUCOSE METER (BEAKER) 93 mg/dL 70-110 TESTED AT [address] (test dkqe=2728) [facility] [address] COMPREHENSIVE METABOLIC [id number] 06:55:00 Test Item Value Reference Range Comments TOTAL PROTEIN (BEAKER) 4.8 gm/dL 6.0-8.3 (test lsqf=706) ALBUMIN (BEAKER) (test 3.3 g/dL 3.5-5.0 doev=2765) ALKALINE PHOSPHATASE 103 U/L 40-150 (BEAKER) (test ppev=876) BILIRUBIN TOTAL (BEAKER) 2.7 mg/dL 0.2-1.2 (test usmd=687) SODIUM (BEAKER) (test 125 meq/L 136-145 evic=298) POTASSIUM (BEAKER) (test 4.6 meq/L 3.5-5.1 vwee=204) CHLORIDE (BEAKER) (test 96 meq/L 98-107 amqn=364) CO2 (BEAKER) (test 22 meq/L 22-29 zgte=097) BLOOD UREA NITROGEN 30 mg/dL 7-21 (BEAKER) (test ucxa=481) CREATININE (BEAKER) (test 2.01 mg/dL 0.57-1.25 dzbe=277) GLUCOSE RANDOM (BEAKER) 88 mg/dL 70-105 (test uvcr=325) CALCIUM (BEAKER) (test 8.5 mg/dL 8.4-10.2 ivnz=985) AST (SGOT) (BEAKER) (test 17 U/L 5-34 wtgj=541) ALT (SGPT) (BEAKER) (test 7 U/L 6-55 lfwi=139) EGFR (BEAKER) (test 35 mL/min/1.73 sq m ESTIMATED GFR IS NOT agqb=2881) ACCURATE CREATININE CLEARANCE IN PREDICTING GLOMERULAR FILTRATION RATE. ESTIMATED GFR IS NOT APPLICABLE FOR DIALYSIS PATIENTS. Specimen slightly ictericPROTHROMBIN [id number] 06:10:00 Test Item Value Reference Range Comments PROTIME (BEAKER) (test yedb=671) 23.2 seconds 11.7-14.7 INR (BEAKER) (test mgrw=481) 2.1 <=5.9 RECOMMENDED COUMADIN/WARFARIN INR THERAPY RANGESSTANDARD DOSE: 2.0 - 3.0 Includes: PROPHYLAXIS forvenous thrombosis, systemic embolization; TREATMENT for venous thrombosis and/or pulmonary embolus.HIGH RISK: Target INR is 2.5-3.5 for patients with mechanical heart valves.POCT-GLUCOSE [id number] 22:42:00 Test Item Value Reference Range Comments POC-GLUCOSE METER (BEAKER) 124 mg/dL 70-110 TESTED AT [address] (test uitw=1537) [facility] [address] POCT-GLUCOSE [id number] 17:04:00 Test Item Value Reference Range Comments POC-GLUCOSE METER (BEAKER) 86 mg/dL 70-110 TESTED AT [address] (test lqvl=3853) [facility] [address] POCT-GLUCOSE [id number] 12:08:00 Test Item Value Reference Range Comments POC-GLUCOSE METER (BEAKER) 159 mg/dL 70-110 TESTED AT [address] (test dhfy=9527) [facility] [address] [id number] 08:39:00 Test Item Value Reference Range Comments PHOSPHORUS (BEAKER) (test trdu=275) 3.9 mg/dL 2.3-4.7 [id number] 08:39:00 Test Item Value Reference Range Comments MAGNESIUM (BEAKER) (test iipb=623) 2.1 mg/dL 1.6-2.6 COMPREHENSIVE METABOLIC [id number] 08:39:00 Test Item Value Reference Range Comments TOTAL PROTEIN (BEAKER) 5.2 gm/dL 6.0-8.3 (test yuby=035) ALBUMIN (BEAKER) (test 3.5 g/dL 3.5-5.0 dncx=0146) ALKALINE PHOSPHATASE 110 U/L 40-150 (BEAKER) (test yhlz=398) BILIRUBIN TOTAL (BEAKER) 2.4 mg/dL 0.2-1.2 (test fxdv=091) SODIUM (BEAKER) (test 122 meq/L 136-145 osqj=748) POTASSIUM (BEAKER) (test 4.5 meq/L 3.5-5.1 fmcm=492) CHLORIDE (BEAKER) (test 94 meq/L 98-107 jjry=058) CO2 (BEAKER) (test 20 meq/L 22-29 bbau=622) BLOOD UREA NITROGEN 31 mg/dL 7-21 (BEAKER) (test fvpw=669) CREATININE (BEAKER) (test 1.94 mg/dL 0.57-1.25 wuez=332) GLUCOSE RANDOM (BEAKER) 127 mg/dL 70-105 (test icru=632) CALCIUM (BEAKER) (test 8.6 mg/dL 8.4-10.2 fsth=620) AST (SGOT) (BEAKER) (test 17 U/L 5-34 hmbb=579) ALT (SGPT) (BEAKER) (test 8 U/L 6-55 xlkw=512) EGFR (BEAKER) (test 36 mL/min/1.73 sq m ESTIMATED GFR IS NOT hyuh=1947) ACCURATE CREATININE CLEARANCE IN PREDICTING GLOMERULAR FILTRATION RATE. ESTIMATED GFR IS NOT APPLICABLE FOR DIALYSIS PATIENTS. Specimen slightly ictericPOCT-GLUCOSE [id number] 07:49:00 Test Item Value Reference Range Comments POC-GLUCOSE METER (BEAKER) 132 mg/dL 70-110 TESTED AT [facility] [address] [facility] (test sbaq=6907) [place] [address] CALCIUM, [id number] 06:35:00 Test Item Value Reference Range Comments CALCIUM IONIZED (BEAKER) (test kiet=810) 1.08 mmol/L 1.12-1.27 PH, BLOOD (BEAKER) (test rbau=4630) 7.39 CBC W/PLT COUNT & AUTO [id number] 05:56:00 Test Item Value Reference Range Comments WHITE BLOOD CELL COUNT (BEAKER) (test shzg=097) 4.1 K/ L 3.5-10.5 RED BLOOD CELL COUNT (BEAKER) (test kljr=961) 2.67 M/ L 4.63-6.08 HEMOGLOBIN (BEAKER) (test iian=065) 8.3 GM/DL 13.7-17.5 HEMATOCRIT (BEAKER) (test xfud=164) 24.7 % 40.1-51.0 MEAN CORPUSCULAR VOLUME (BEAKER) (test mkmw=334) 92.5 fL 79.0-92.2 MEAN CORPUSCULAR HEMOGLOBIN (BEAKER) (test 31.1 pg 25.7-32.2 nryb=769) MEAN CORPUSCULAR HEMOGLOBIN CONC (BEAKER) (test 33.6 GM/DL 32.3-36.5 mpca=292) RED CELL DISTRIBUTION WIDTH (BEAKER) (test 15.0 % 11.6-14.4 bzou=610) PLATELET COUNT (BEAKER) (test vkky=501) 58 K/CU MM 150-450 MEAN PLATELET VOLUME (BEAKER) (test stkc=343) 9.3 fL 9.4-12.4 NUCLEATED RED BLOOD CELLS (BEAKER) (test 0 /100 WBC 0-0 jvha=720) NEUTROPHILS RELATIVE PERCENT (BEAKER) (test 64 % nvlk=374) LYMPHOCYTES RELATIVE PERCENT (BEAKER) (test 12 % ipcx=679) MONOCYTES RELATIVE PERCENT (BEAKER) (test 18 % omdd=679) EOSINOPHILS RELATIVE PERCENT (BEAKER) (test 5 % bfmq=217) BASOPHILS RELATIVE PERCENT (BEAKER) (test 0 % ayik=448) NEUTROPHILS ABSOLUTE COUNT (BEAKER) (test 2.63 K/ L 1.78-5.38 qksh=255) LYMPHOCYTES ABSOLUTE COUNT (BEAKER) (test 0.51 K/ L 1.32-3.57 dnpz=133) MONOCYTES ABSOLUTE COUNT (BEAKER) (test rrqu=696) 0.74 K/ L 0.30-0.82 EOSINOPHILS ABSOLUTE COUNT (BEAKER) (test 0.21 K/ L 0.04-0.54 tccs=697) BASOPHILS ABSOLUTE COUNT (BEAKER) (test gepp=414) 0.01 K/ L 0.01-0.08 IMMATURE GRANULOCYTES-RELATIVE PERCENT (BEAKER) 1 % 0-1 (test dzqd=1885) PROTHROMBIN [id number] 05:49:00 Test Item Value Reference Range Comments PROTIME (BEAKER) (test bres=942) 20.4 seconds 11.7-14.7 INR (BEAKER) (test iekz=036) 1.8 <=5.9 RECOMMENDED COUMADIN/WARFARIN INR THERAPY RANGESSTANDARD DOSE: 2.0 - 3.0 Includes: PROPHYLAXIS forvenous thrombosis, systemic embolization; TREATMENT for venous thrombosis and/or pulmonary embolus.HIGH RISK: Target INR is 2.5-3.5 for patients with mechanical heart valves.[id number] 22:31:00 Test Item Value Reference Range Comments SODIUM (BEAKER) (test qhsz=097) 123 meq/L 136-145 POTASSIUM (BEAKER) (test hgql=365) 4.5 meq/L 3.5-5.1 CHLORIDE (BEAKER) (test ejpa=572) 94 meq/L 98-107 CO2 (BEAKER) (test nufq=125) 22 meq/L 22-29 Call results "at a decent hour" to [phone]-GLUCOSE [id number] 21: 48:00 Test Item Value Reference Range Comments POC-GLUCOSE METER (BEAKER) 144 mg/dL 70-110 TESTED AT [address] (test wbpk=3172) [facility] [address] [id number] 17:27:00 Test Item Value Reference Range Comments CORTISOL, TOTAL (BEAKER) (test zmzy=6897) 1.9 ug/dL 3.7-19.4 [id number] 17:03:00 Test Item Value Reference Range Comments SODIUM (BEAKER) (test wpxz=190) 123 meq/L 136-145 POTASSIUM (BEAKER) (test aqdb=243) 4.7 meq/L 3.5-5.1 CHLORIDE (BEAKER) (test inrz=438) 95 meq/L 98-107 CO2 (BEAKER) (test bnap=947) 21 meq/L 22-29 Call resultsPOCT-GLUCOSE [id number] 16:48:00 Test Item Value Reference Range Comments POC-GLUCOSE METER (BEAKER) 117 mg/dL 70-110 TESTED AT [address] (test igyr=5384) [place] [address] SODIUM, RANDOM [id number] 15:12:00 Test Item Value Reference Range Comments SODIUM URINE (BEAKER) (test qluo=849) < meq/L Reference Range: No NormalsCREATININE, RANDOM [id number] 15:11:00 Test Item Value Reference Range Comments CREATININE URINE (BEAKER) (test cfbm=431) 87.5 mg/dL Reference Range: No NormalsOSMOLALITY, [id number] 15:05:00 Test Item Value Reference Range Comments OSMOLALITY URINE (BEAKER) (test kwsh=479) 234 mOsm/kg 40-1,400 POCT-GLUCOSE [id number] 13:14:00 Test Item Value Reference Range Comments POC-GLUCOSE METER (BEAKER) 129 mg/dL 70-110 TESTED AT [address] (test qedx=8188) [place] [address] [id number] 10:06:00 Test Item Value Reference Range Comments SODIUM (BEAKER) (test ounw=684) 120 meq/L 136-145 POTASSIUM (BEAKER) (test mutw=166) 4.6 meq/L 3.5-5.1 CHLORIDE (BEAKER) (test ffgx=659) 93 meq/L 98-107 CO2 (BEAKER) (test qgkv=137) 23 meq/L 22-29 Call [id number] 09:01:00 Test Item Value Reference Range Comments POC-GLUCOSE METER (BEAKER) 97 mg/dL 70-110 TESTED AT [address] (test cupy=4104) [place] [id number] COMPREHENSIVE METABOLIC [id number] 08:40:00 Test Item Value Reference Range Comments TOTAL PROTEIN (BEAKER) 5.2 gm/dL 6.0-8.3 (test tvjl=454) ALBUMIN (BEAKER) (test 3.7 g/dL 3.5-5.0 wuom=9164) ALKALINE PHOSPHATASE 104 U/L 40-150 (BEAKER) (test djnq=501) BILIRUBIN TOTAL (BEAKER) 3.3 mg/dL 0.2-1.2 (test dcbh=439) SODIUM (BEAKER) (test 120 meq/L 136-145 tdgi=067) POTASSIUM (BEAKER) (test 4.8 meq/L 3.5-5.1 oysx=733) CHLORIDE (BEAKER) (test 93 meq/L 98-107 adpw=731) CO2 (BEAKER) (test 20 meq/L 22-29 oqxb=336) BLOOD UREA NITROGEN 31 mg/dL 7-21 (BEAKER) (test edmd=594) CREATININE (BEAKER) (test 1.72 mg/dL 0.57-1.25 wxsg=057) GLUCOSE RANDOM (BEAKER) 99 mg/dL 70-105 (test ycmz=114) CALCIUM (BEAKER) (test 8.9 mg/dL 8.4-10.2 avwq=336) AST (SGOT) (BEAKER) (test 16 U/L 5-34 jhmz=929) ALT (SGPT) (BEAKER) (test < U/L 6-55 kdge=535) EGFR (BEAKER) (test 42 mL/min/1.73 sq m ESTIMATED GFR IS NOT edih=7926) ACCURATE CREATININE CLEARANCE IN PREDICTING GLOMERULAR FILTRATION RATE. ESTIMATED GFR IS NOT APPLICABLE FOR DIALYSIS PATIENTS. Specimen slightly [id number] 08:14:00 Test Item Value Reference Range Comments PHOSPHORUS (BEAKER) (test qkcq=702) 3.8 mg/dL 2.3-4.7 [id number] 08:14:00 Test Item Value Reference Range Comments MAGNESIUM (BEAKER) (test qqmh=711) 2.1 mg/dL 1.6-2.6 CALCIUM, [id number] 06:56:00 Test Item Value Reference Range Comments CALCIUM IONIZED (BEAKER) (test uwzt=187) 1.12 mmol/L 1.12-1.27 PH, BLOOD (BEAKER) (test exrv=3165) 7.36 CBC W/PLT COUNT & AUTO [id number] 06:38:00 Test Item Value Reference Range Comments WHITE BLOOD CELL COUNT (BEAKER) (test ofru=887) 4.9 K/ L 3.5-10.5 RED BLOOD CELL COUNT (BEAKER) (test xvgl=821) 2.69 M/ L 4.63-6.08 HEMOGLOBIN (BEAKER) (test izvk=660) 8.3 GM/DL 13.7-17.5 HEMATOCRIT (BEAKER) (test yqfl=248) 24.8 % 40.1-51.0 MEAN CORPUSCULAR VOLUME (BEAKER) (test hovy=256) 92.2 fL 79.0-92.2 MEAN CORPUSCULAR HEMOGLOBIN (BEAKER) (test 30.9 pg 25.7-32.2 rnjm=581) MEAN CORPUSCULAR HEMOGLOBIN CONC (BEAKER) (test 33.5 GM/DL 32.3-36.5 qgiu=827) RED CELL DISTRIBUTION WIDTH (BEAKER) (test 14.8 % 11.6-14.4 zczu=914) PLATELET COUNT (BEAKER) (test ktde=832) 65 K/CU MM 150-450 MEAN PLATELET VOLUME (BEAKER) (test lzeg=584) 9.1 fL 9.4-12.4 NUCLEATED RED BLOOD CELLS (BEAKER) (test 0 /100 WBC 0-0 chpg=745) NEUTROPHILS RELATIVE PERCENT (BEAKER) (test 67 % cbxm=586) LYMPHOCYTES RELATIVE PERCENT (BEAKER) (test 10 % jsqc=219) MONOCYTES RELATIVE PERCENT (BEAKER) (test 17 % tnkt=729) EOSINOPHILS RELATIVE PERCENT (BEAKER) (test 5 % ramo=710) BASOPHILS RELATIVE PERCENT (BEAKER) (test 0 % wylt=184) NEUTROPHILS ABSOLUTE COUNT (BEAKER) (test 3.32 K/ L 1.78-5.38 lats=039) LYMPHOCYTES ABSOLUTE COUNT (BEAKER) (test 0.51 K/ L 1.32-3.57 yatx=807) MONOCYTES ABSOLUTE COUNT (BEAKER) (test hikj=107) 0.83 K/ L 0.30-0.82 EOSINOPHILS ABSOLUTE COUNT (BEAKER) (test 0.23 K/ L 0.04-0.54 apis=850) BASOPHILS ABSOLUTE COUNT (BEAKER) (test wwvf=612) 0.02 K/ L 0.01-0.08 IMMATURE GRANULOCYTES-RELATIVE PERCENT (BEAKER) 1 % 0-1 (test vdtj=7164) [id number] 06:35:00 Test Item Value Reference Range Comments PARTIAL THROMBOPLASTIN TIME (BEAKER) (test 52.6 seconds 22.5-36.0 nkwq=487) PROTHROMBIN [id number] 06:34:00 Test Item Value Reference Range Comments PROTIME (BEAKER) (test lqzx=332) 21.6 seconds 11.7-14.7 INR (BEAKER) (test zzpy=718) 1.9 <=5.9 RECOMMENDED COUMADIN/WARFARIN INR THERAPY RANGESSTANDARD DOSE: 2.0 - 3.0 Includes: PROPHYLAXIS forvenous thrombosis, systemic embolization; TREATMENT for venous thrombosis and/or pulmonary embolus.HIGH RISK: Target INR is 2.5-3.5 for patients with mechanical heart valves.POCT-GLUCOSE [id number] 22:00:00 Test Item Value Reference Range Comments POC-GLUCOSE METER (BEAKER) 114 mg/dL 70-110 TESTED AT [address] (test gmvl=3013) [facility] [address] POCT-GLUCOSE [id number] 17:57:00 Test Item Value Reference Range Comments POC-GLUCOSE METER (BEAKER) 139 mg/dL 70-110 TESTED AT [address] (test lsmc=5737) [facility] [address] POCT-GLUCOSE [id number] 11:57:00 Test Item Value Reference Range Comments POC-GLUCOSE METER (BEAKER) 146 mg/dL 70-110 TESTED AT [address] (test lmou=0391) [facility] [address] POCT-GLUCOSE [id number] 09:16:00 Test Item Value Reference Range Comments POC-GLUCOSE METER (BEAKER) 109 mg/dL 70-110 TESTED AT [address] (test jybt=6477) [facility] [address] COMPREHENSIVE METABOLIC [id number] 05:53:00 Test Item Value Reference Range Comments TOTAL PROTEIN (BEAKER) 5.2 gm/dL 6.0-8.3 (test vvlu=896) ALBUMIN (BEAKER) (test 3.8 g/dL 3.5-5.0 uulp=5456) ALKALINE PHOSPHATASE 110 U/L 40-150 (BEAKER) (test ikhw=180) BILIRUBIN TOTAL (BEAKER) 4.5 mg/dL 0.2-1.2 (test axby=713) SODIUM (BEAKER) (test 124 meq/L 136-145 kkqf=942) POTASSIUM (BEAKER) (test 4.5 meq/L 3.5-5.1 jbdv=580) CHLORIDE (BEAKER) (test 95 meq/L 98-107 mnvc=946) CO2 (BEAKER) (test 22 meq/L 22-29 ryiv=582) BLOOD UREA NITROGEN 30 mg/dL 7-21 (BEAKER) (test kmvc=357) CREATININE (BEAKER) (test 1.67 mg/dL 0.57-1.25 ptqu=574) GLUCOSE RANDOM (BEAKER) 99 mg/dL 70-105 (test npvn=499) CALCIUM (BEAKER) (test 9.0 mg/dL 8.4-10.2 ngum=368) AST (SGOT) (BEAKER) (test 16 U/L 5-34 htkj=555) ALT (SGPT) (BEAKER) (test < U/L 6-55 dqgy=193) EGFR (BEAKER) (test 43 mL/min/1.73 sq m ESTIMATED GFR IS NOT jkpq=6052) ACCURATE CREATININE CLEARANCE IN PREDICTING GLOMERULAR FILTRATION RATE. ESTIMATED GFR IS NOT APPLICABLE FOR DIALYSIS PATIENTS. Specimen slightly [id number] 05:50:00 Test Item Value Reference Range Comments PHOSPHORUS (BEAKER) (test xrok=468) 3.7 mg/dL 2.3-4.7 [id number] 05:50:00 Test Item Value Reference Range Comments MAGNESIUM (BEAKER) (test ycuf=341) 2.1 mg/dL 1.6-2.6 CBC W/PLT COUNT & AUTO [id number] 05:28:00 Test Item Value Reference Range Comments WHITE BLOOD CELL COUNT (BEAKER) (test kyfa=442) 4.0 K/ L 3.5-10.5 RED BLOOD CELL COUNT (BEAKER) (test cxwj=840) 2.80 M/ L 4.63-6.08 HEMOGLOBIN (BEAKER) (test lzbe=800) 8.7 GM/DL 13.7-17.5 HEMATOCRIT (BEAKER) (test natj=374) 25.8 % 40.1-51.0 MEAN CORPUSCULAR VOLUME (BEAKER) (test ebtk=685) 92.1 fL 79.0-92.2 MEAN CORPUSCULAR HEMOGLOBIN (BEAKER) (test 31.1 pg 25.7-32.2 kkrt=027) MEAN CORPUSCULAR HEMOGLOBIN CONC (BEAKER) (test 33.7 GM/DL 32.3-36.5 xaxg=911) RED CELL DISTRIBUTION WIDTH (BEAKER) (test 14.7 % 11.6-14.4 jixb=670) PLATELET COUNT (BEAKER) (test eknd=580) 42 K/CU MM 150-450 MEAN PLATELET VOLUME (BEAKER) (test rogg=199) 9.8 fL 9.4-12.4 NUCLEATED RED BLOOD CELLS (BEAKER) (test 0 /100 WBC 0-0 hfql=092) NEUTROPHILS RELATIVE PERCENT (BEAKER) (test 59 % bazb=005) LYMPHOCYTES RELATIVE PERCENT (BEAKER) (test 15 % aqbd=055) MONOCYTES RELATIVE PERCENT (BEAKER) (test 20 % czbg=855) EOSINOPHILS RELATIVE PERCENT (BEAKER) (test 5 % ohof=094) BASOPHILS RELATIVE PERCENT (BEAKER) (test 1 % vhlk=194) NEUTROPHILS ABSOLUTE COUNT (BEAKER) (test 2.37 K/ L 1.78-5.38 aacl=802) LYMPHOCYTES ABSOLUTE COUNT (BEAKER) (test 0.58 K/ L 1.32-3.57 snoi=682) MONOCYTES ABSOLUTE COUNT (BEAKER) (test wuqr=615) 0.78 K/ L 0.30-0.82 EOSINOPHILS ABSOLUTE COUNT (BEAKER) (test 0.21 K/ L 0.04-0.54 ocdz=146) BASOPHILS ABSOLUTE COUNT (BEAKER) (test axji=280) 0.02 K/ L 0.01-0.08 IMMATURE GRANULOCYTES-RELATIVE PERCENT (BEAKER) 1 % 0-1 (test yaxc=1211) PROTHROMBIN [id number] 05:26:00 Test Item Value Reference Range Comments PROTIME (BEAKER) (test jpho=634) 23.3 seconds 11.7-14.7 INR (BEAKER) (test avqy=454) 2.1 <=5.9 RECOMMENDED COUMADIN/WARFARIN INR THERAPY RANGESSTANDARD DOSE: 2.0 - 3.0 Includes: PROPHYLAXIS forvenous thrombosis, systemic embolization; TREATMENT for venous thrombosis and/or pulmonary embolus.HIGH RISK: Target INR is 2.5-3.5 for patients with mechanical heart valves.CALCIUM, [id number] 05:21:00 Test Item Value Reference Range Comments CALCIUM IONIZED (BEAKER) (test wquu=758) 1.11 mmol/L 1.12-1.27 PH, BLOOD (BEAKER) (test gudg=4329) 7.40 POCT-GLUCOSE [id number] 21:47:00 Test Item Value Reference Range Comments POC-GLUCOSE METER (BEAKER) 129 mg/dL 70-110 TESTED AT [facility] [address] [facility] (test qwxn=2330) [facility] [address] RAD, CHEST, 1 VIEW, NON [id number] 17:18:00Reason for exam:->sobFINAL REPORT Comparison: 08/26/2018 TECHNIQUE: Single view of the chest FINDINGS: Lung volumes are low. Bibasilar densities may represent atelectasis. Otherwise lungs are clear. Cardiac silhouette is within normal limits. Soft tissues and bones are unremarkable. Signed: Rick Loomis MDReport Verified Date/Time: 09/02/2018 17:18:49 Reading Location: [facility] Mammo Reading Room CBC W/ PLT COUNT & AUTO [id number] 17:16:00 Test Item Value Reference Range Comments WHITE BLOOD CELL COUNT (BEAKER) (test xftw=785) 3.8 K/ L 3.5-10.5 RED BLOOD CELL COUNT (BEAKER) (test yaih=483) 2.37 M/ L 4.63-6.08 HEMOGLOBIN (BEAKER) (test moqj=035) 7.4 GM/DL 13.7-17.5 HEMATOCRIT (BEAKER) (test logs=008) 21.8 % 40.1-51.0 MEAN CORPUSCULAR VOLUME (BEAKER) (test twuo=463) 92.0 fL 79.0-92.2 MEAN CORPUSCULAR HEMOGLOBIN (BEAKER) (test 31.2 pg 25.7-32.2 rytx=936) MEAN CORPUSCULAR HEMOGLOBIN CONC (BEAKER) (test 33.9 GM/DL 32.3-36.5 gdtt=997) RED CELL DISTRIBUTION WIDTH (BEAKER) (test 14.9 % 11.6-14.4 iqka=355) PLATELET COUNT (BEAKER) (test oxzz=913) 41 K/CU MM 150-450 MEAN PLATELET VOLUME (BEAKER) (test izdu=634) 8.8 fL 9.4-12.4 NUCLEATED RED BLOOD CELLS (BEAKER) (test 0 /100 WBC 0-0 znjs=078) NEUTROPHILS RELATIVE PERCENT (BEAKER) (test 62 % ujcx=932) LYMPHOCYTES RELATIVE PERCENT (BEAKER) (test 14 % jvka=356) MONOCYTES RELATIVE PERCENT (BEAKER) (test 18 % pkvi=137) EOSINOPHILS RELATIVE PERCENT (BEAKER) (test 4 % wbds=015) BASOPHILS RELATIVE PERCENT (BEAKER) (test 0 % ldyk=319) NEUTROPHILS ABSOLUTE COUNT (BEAKER) (test 2.39 K/ L 1.78-5.38 nwmq=731) LYMPHOCYTES ABSOLUTE COUNT (BEAKER) (test 0.55 K/ L 1.32-3.57 rbaw=829) MONOCYTES ABSOLUTE COUNT (BEAKER) (test btts=270) 0.69 K/ L 0.30-0.82 EOSINOPHILS ABSOLUTE COUNT (BEAKER) (test 0.17 K/ L 0.04-0.54 mzwk=611) BASOPHILS ABSOLUTE COUNT (BEAKER) (test ehdg=196) 0.01 K/ L 0.01-0.08 IMMATURE GRANULOCYTES-RELATIVE PERCENT (BEAKER) 1 % 0-1 (test uznv=9928) POCT-BLOOD GASES, [id number] 16:58:00 Test Item Value Reference Range Comments TEMP, CELSIUS-POC (BEAKER) 37.0 (test eaqg=9669) FIO2-POC (BEAKER) (test TESTED AT [facility] [address] [facility] ptnm=7754) [facility] [address] PH, ARTERIAL-POC (BEAKER) 7.412 7.350-7.450 (test fcrf=6595) PCO2, ARTERIAL-POC (BEAKER) 35.5 mm Hg 35.0-45.0 (test armu=8339) PO2, ARTERIAL-POC (BEAKER) 69.0 mm Hg 80.0-90.0 (test skql=1579) SO2, ARTERIAL-POC (BEAKER) 94.0 % 96.0-97.0 (test xoom=6378) HCO3, ARTERIAL-POC (BEAKER) 22.6 meq/L 21.0-29.0 (test vsfd=7590) BASE EXCESS, ARTERIAL-POC -2.0 meq/L -2.0-3.0 (BEAKER) (test eamj=5625) [id number] 16:58:00 Test Item Value Reference Range Comments POC-SODIUM (BEAKER) (test 125 meq/L 135-148 TESTED AT [address] waht=1411) [place] [address] [id number] 16:58:00 Test Item Value Reference Range Comments POC-POTASSIUM (BEAKER) (test 4.2 meq/L 3.6-5.5 TESTED AT [address] jjha=5096) [place] [address] [id number] 16:58:00 Test Item Value Reference Range Comments POC-GLUCOSE (BEAKER) (test 128 mg/dL 70-110 TESTED AT [address] tsqg=3402) [place] [address] POCT-CALCIUM [id number] 16:58:00 Test Item Value Reference Range Comments POC-CALCIUM IONIZED (BEAKER) 1.24 mmol/L 1.12-1.27 TESTED AT [address] (test kbng=5476) [place] [address] [id number] 16:58:00 Test Item Value Reference Range Comments POC-HEMATOCRIT (BEAKER) (test 21 % 40-50 TESTED AT [address] qxhx=5984) [place] [address] [id number] 16:58:00 Test Item Value Reference Range Comments POC-HEMOGLOBIN (BEAKER) 7.1 g/dL 13.0-16.8 TESTED AT [address] (test yrdu=1810) [place] [address]TESTED AT [place] [address] POCT-LACTIC ACID, [id number] 16:58:00 Test Item Value Reference Range Comments POC-LACTIC ACID, ARTERIAL 1.0 mmol/L 0.4-1.3 TESTED AT [address] (BEAKER) (test xjur=6363) [place] [address] POCT-GLUCOSE [id number] 11:43:00 Test Item Value Reference Range Comments POC-GLUCOSE METER (BEAKER) 169 mg/dL 70-110 TESTED AT [facility] [address] [facility] (test ywcy=9122) [facility] [address] POCT-GLUCOSE [id number] 08:23:00 Test Item Value Reference Range Comments POC-GLUCOSE METER (BEAKER) 128 mg/dL 70-110 TESTED AT [facility] [address] [facility] (test fhog=8980) [facility] [address] [id number] 05:16:00 Test Item Value Reference Range Comments PHOSPHORUS (BEAKER) (test oinf=498) 3.8 mg/dL 2.3-4.7 [id number] 05:16:00 Test Item Value Reference Range Comments MAGNESIUM (BEAKER) (test ciwo=634) 2.0 mg/dL 1.6-2.6 COMPREHENSIVE METABOLIC [id number] 05:16:00 Test Item Value Reference Range Comments TOTAL PROTEIN (BEAKER) 5.0 gm/dL 6.0-8.3 (test dgbn=041) ALBUMIN (BEAKER) (test 3.5 g/dL 3.5-5.0 atda=7089) ALKALINE PHOSPHATASE 124 U/L 40-150 (BEAKER) (test eycn=682) BILIRUBIN TOTAL (BEAKER) 2.2 mg/dL 0.2-1.2 (test fssb=982) SODIUM (BEAKER) (test 125 meq/L 136-145 gyvb=700) POTASSIUM (BEAKER) (test 4.4 meq/L 3.5-5.1 eaoa=373) CHLORIDE (BEAKER) (test 96 meq/L 98-107 aanm=865) CO2 (BEAKER) (test 23 meq/L 22-29 ynlg=848) BLOOD UREA NITROGEN 27 mg/dL 7-21 (BEAKER) (test guzd=652) CREATININE (BEAKER) (test 1.74 mg/dL 0.57-1.25 edtu=214) GLUCOSE RANDOM (BEAKER) 112 mg/dL 70-105 (test dzqe=034) CALCIUM (BEAKER) (test 8.8 mg/dL 8.4-10.2 cywt=308) AST (SGOT) (BEAKER) (test 17 U/L 5-34 prnk=107) ALT (SGPT) (BEAKER) (test 7 U/L 6-55 fqyr=714) EGFR (BEAKER) (test 41 mL/min/1.73 sq m ESTIMATED GFR IS NOT agaa=6393) ACCURATE CREATININE CLEARANCE IN PREDICTING GLOMERULAR FILTRATION RATE. ESTIMATED GFR IS NOT APPLICABLE FOR DIALYSIS PATIENTS. CALCIUM, [id number] 05:13:00 Test Item Value Reference Range Comments CALCIUM IONIZED (BEAKER) (test ouhd=945) 1.10 mmol/L 1.12-1.27 PH, BLOOD (BEAKER) (test lgpn=5574) 7.44 CBC W/PLT COUNT & AUTO [id number] 05:02:00 Test Item Value Reference Range Comments WHITE BLOOD CELL COUNT (BEAKER) (test fgif=381) 3.2 K/ L 3.5-10.5 RED BLOOD CELL COUNT (BEAKER) (test zqbw=745) 2.23 M/ L 4.63-6.08 HEMOGLOBIN (BEAKER) (test hetf=493) 6.9 GM/DL 13.7-17.5 HEMATOCRIT (BEAKER) (test bpdd=699) 20.8 % 40.1-51.0 MEAN CORPUSCULAR VOLUME (BEAKER) (test siwh=366) 93.3 fL 79.0-92.2 MEAN CORPUSCULAR HEMOGLOBIN (BEAKER) (test 30.9 pg 25.7-32.2 ekyp=799) MEAN CORPUSCULAR HEMOGLOBIN CONC (BEAKER) (test 33.2 GM/DL 32.3-36.5 wmgp=238) RED CELL DISTRIBUTION WIDTH (BEAKER) (test 14.6 % 11.6-14.4 rksx=491) PLATELET COUNT (BEAKER) (test urou=313) 43 K/CU MM 150-450 MEAN PLATELET VOLUME (BEAKER) (test bfue=272) 9.3 fL 9.4-12.4 NUCLEATED RED BLOOD CELLS (BEAKER) (test 0 /100 WBC 0-0 svwx=311) NEUTROPHILS RELATIVE PERCENT (BEAKER) (test 58 % gyah=074) LYMPHOCYTES RELATIVE PERCENT (BEAKER) (test 17 % udaw=207) MONOCYTES RELATIVE PERCENT (BEAKER) (test 18 % kudt=133) EOSINOPHILS RELATIVE PERCENT (BEAKER) (test 5 % lhjz=774) BASOPHILS RELATIVE PERCENT (BEAKER) (test 1 % gltj=730) NEUTROPHILS ABSOLUTE COUNT (BEAKER) (test 1.84 K/ L 1.78-5.38 dfxk=794) LYMPHOCYTES ABSOLUTE COUNT (BEAKER) (test 0.54 K/ L 1.32-3.57 yace=181) MONOCYTES ABSOLUTE COUNT (BEAKER) (test qahb=045) 0.56 K/ L 0.30-0.82 EOSINOPHILS ABSOLUTE COUNT (BEAKER) (test 0.15 K/ L 0.04-0.54 urns=246) BASOPHILS ABSOLUTE COUNT (BEAKER) (test hzsr=011) 0.02 K/ L 0.01-0.08 IMMATURE GRANULOCYTES-RELATIVE PERCENT (BEAKER) 1 % 0-1 (test vhuy=4782) PROTHROMBIN [id number] 05:00:00 Test Item Value Reference Range Comments PROTIME (BEAKER) (test ztso=042) 22.7 seconds 11.7-14.7 INR (BEAKER) (test iclf=378) 2.0 <=5.9 RECOMMENDED COUMADIN/WARFARIN INR THERAPY RANGESSTANDARD DOSE: 2.0 - 3.0 Includes: PROPHYLAXIS forvenous thrombosis, systemic embolization; TREATMENT for venous thrombosis and/or pulmonary embolus.HIGH RISK: Target INR is 2.5-3.5 for patients with mechanical heart valves.POCT-GLUCOSE [id number] 22:18:00 Test Item Value Reference Range Comments POC-GLUCOSE METER (BEAKER) 194 mg/dL 70-110 TESTED AT [address] (test qtsu=2168) [place] [address] POCT-GLUCOSE [id number] 17:33:00 Test Item Value Reference Range Comments POC-GLUCOSE METER (BEAKER) 160 mg/dL 70-110 TESTED AT [address] (test ejoy=1661) [place] [address] POCT-GLUCOSE [id number] 11:56:00 Test Item Value Reference Range Comments POC-GLUCOSE METER (BEAKER) 151 mg/dL 70-110 TESTED AT [address] (test fmqb=0352) [place] [address] URINALYSIS W/ [id number] 09:52:00 Test Item Value Reference Range Comments COLOR (BEAKER) (test lyeu=403) Yellow CLARITY (BEAKER) (test cwtl=870) Clear SPECIFIC GRAVITY UA (BEAKER) (test 1.014 1.001-1.035 bkdg=789) PH UA (BEAKER) (test iqri=486) 5.5 5.0-8.0 PROTEIN UA (BEAKER) (test eowr=539) Negative Negative GLUCOSE UA (BEAKER) (test zxoi=302) Negative Negative KETONES UA (BEAKER) (test hfrp=658) Negative Negative BILIRUBIN UA (BEAKER) (test anrt=280) Negative Negative BLOOD UA (BEAKER) (test ewul=578) Negative Negative NITRITE UA (BEAKER) (test clwt=639) Negative Negative LEUKOCYTE ESTERASE UA (BEAKER) (test Negative Negative fmfm=772) UROBILINOGEN UA (BEAKER) (test hlcn=626) 0.2 mg/dL 0.2-1.0 RBC UA (BEAKER) (test gpmm=469) 1 /HPF WBC UA (BEAKER) (test xqtj=448) 4 /HPF BACTERIA (BEAKER) (test reur=118) Rare MUCUS (BEAKER) (test gwxo=6982) Rare HYALINE CASTS (BEAKER) (test sozj=461) 19 /LPF YEAST (BEAKER) (test vryu=2114) Rare SOURCE(BEAKER) (test osgt=8692) Urine, Clean Catch SODIUM, RANDOM [id number] 09:09:00 Test Item Value Reference Range Comments SODIUM URINE (BEAKER) (test xdgq=076) < meq/L Reference Range: No NormalsCREATININE, RANDOM [id number] 09:04:00 Test Item Value Reference Range Comments CREATININE URINE (BEAKER) (test ngay=898) 149.6 mg/dL Reference Range: No NormalsPOCT-GLUCOSE [id number] 08:12:00 Test Item Value Reference Range Comments POC-GLUCOSE METER (BEAKER) 106 mg/dL 70-110 TESTED AT [facility] [address] [facility] (test zgdd=4933) [place] [address] CBC W/PLT COUNT & AUTO [id number] 06:56:00 Test Item Value Reference Range Comments WHITE BLOOD CELL COUNT (BEAKER) (test tndg=342) 4.5 K/ L 3.5-10.5 RED BLOOD CELL COUNT (BEAKER) (test mmfl=081) 2.22 M/ L 4.63-6.08 HEMOGLOBIN (BEAKER) (test cacn=716) 7.0 GM/DL 13.7-17.5 HEMATOCRIT (BEAKER) (test kekg=921) 20.6 % 40.1-51.0 MEAN CORPUSCULAR VOLUME (BEAKER) (test bywo=247) 92.8 fL 79.0-92.2 MEAN CORPUSCULAR HEMOGLOBIN (BEAKER) (test 31.5 pg 25.7-32.2 sskd=944) MEAN CORPUSCULAR HEMOGLOBIN CONC (BEAKER) (test 34.0 GM/DL 32.3-36.5 vato=221) RED CELL DISTRIBUTION WIDTH (BEAKER) (test 14.7 % 11.6-14.4 vveb=657) PLATELET COUNT (BEAKER) (test xnja=180) 44 K/CU MM 150-450 MEAN PLATELET VOLUME (BEAKER) (test zcpw=116) 9.0 fL 9.4-12.4 NUCLEATED RED BLOOD CELLS (BEAKER) (test 0 /100 WBC 0-0 gazm=672) NEUTROPHILS RELATIVE PERCENT (BEAKER) (test 69 % kvvs=895) LYMPHOCYTES RELATIVE PERCENT (BEAKER) (test 12 % tmcd=376) MONOCYTES RELATIVE PERCENT (BEAKER) (test 14 % vezx=500) EOSINOPHILS RELATIVE PERCENT (BEAKER) (test 4 % xlbx=091) BASOPHILS RELATIVE PERCENT (BEAKER) (test 0 % ijqf=183) NEUTROPHILS ABSOLUTE COUNT (BEAKER) (test 3.12 K/ L 1.78-5.38 xffi=097) LYMPHOCYTES ABSOLUTE COUNT (BEAKER) (test 0.55 K/ L 1.32-3.57 hqcp=284) MONOCYTES ABSOLUTE COUNT (BEAKER) (test muwf=013) 0.62 K/ L 0.30-0.82 EOSINOPHILS ABSOLUTE COUNT (BEAKER) (test 0.18 K/ L 0.04-0.54 orwj=173) BASOPHILS ABSOLUTE COUNT (BEAKER) (test rcdc=657) 0.00 K/ L 0.01-0.08 IMMATURE GRANULOCYTES-RELATIVE PERCENT (BEAKER) 1 % 0-1 (test fbjw=2635) [id number] 06:41:00 Test Item Value Reference Range Comments PHOSPHORUS (BEAKER) (test mpcc=715) 2.7 mg/dL 2.3-4.7 [id number] 06:41:00 Test Item Value Reference Range Comments MAGNESIUM (BEAKER) (test sqel=534) 2.0 mg/dL 1.6-2.6 COMPREHENSIVE METABOLIC [id number] 06:41:00 Test Item Value Reference Range Comments TOTAL PROTEIN (BEAKER) 4.9 gm/dL 6.0-8.3 (test ovtp=271) ALBUMIN (BEAKER) (test 3.1 g/dL 3.5-5.0 zvyc=8917) ALKALINE PHOSPHATASE 148 U/L 40-150 (BEAKER) (test xisz=008) BILIRUBIN TOTAL (BEAKER) 1.9 mg/dL 0.2-1.2 (test bugj=579) SODIUM (BEAKER) (test 123 meq/L 136-145 eabn=309) POTASSIUM (BEAKER) (test 3.9 meq/L 3.5-5.1 xlyd=424) CHLORIDE (BEAKER) (test 94 meq/L 98-107 gumy=532) CO2 (BEAKER) (test 22 meq/L 22-29 jbjs=189) BLOOD UREA NITROGEN 24 mg/dL 7-21 (BEAKER) (test xann=357) CREATININE (BEAKER) (test 1.55 mg/dL 0.57-1.25 vtku=762) GLUCOSE RANDOM (BEAKER) 95 mg/dL 70-105 (test bwza=423) CALCIUM (BEAKER) (test 8.5 mg/dL 8.4-10.2 szss=392) AST (SGOT) (BEAKER) (test 18 U/L 5-34 bvlg=705) ALT (SGPT) (BEAKER) (test 10 U/L 6-55 rkwa=014) EGFR (BEAKER) (test 47 mL/min/1.73 sq m ESTIMATED GFR IS NOT uooq=8755) ACCURATE CREATININE CLEARANCE IN PREDICTING GLOMERULAR FILTRATION RATE. ESTIMATED GFR IS NOT APPLICABLE FOR DIALYSIS PATIENTS. BILIRUBIN, [id number] 06:41:00 Test Item Value Reference Range Comments BILIRUBIN DIRECT (BEAKER) (test otye=561) 1.3 mg/dL 0.1-0.5 PROTHROMBIN [id number] 06:26:00 Test Item Value Reference Range Comments PROTIME (BEAKER) (test lnkm=546) 23.3 seconds 11.7-14.7 INR (BEAKER) (test wllg=847) 2.1 <=5.9 RECOMMENDED COUMADIN/WARFARIN INR THERAPY RANGESSTANDARD DOSE: 2.0 - 3.0 Includes: PROPHYLAXIS forvenous thrombosis, systemic embolization; TREATMENT for venous thrombosis and/or pulmonary embolus.HIGH RISK: Target INR is 2.5-3.5 for patients with mechanical heart valves.POCT-GLUCOSE [id number] 22:17:00 Test Item Value Reference Range Comments POC-GLUCOSE METER (BEAKER) 136 mg/dL 70-110 TESTED AT [address] (test shpb=6272) [place] [address] POCT-GLUCOSE [id number] 18:08:00 Test Item Value Reference Range Comments POC-GLUCOSE METER (BEAKER) 126 mg/dL 70-110 TESTED AT [address] (test fwuf=9206) [place] [address] U/S, [id number] 17:47:00Reason for exam:->ascitesFINAL REPORT Indication: Ascites. Technique: Ultrasound guided paracentesis. Findings:Preliminary ultrasound confirms ascites. A safe window was identified in the left lower quadrant. The procedure was explained to the patient and informed consent was signed. The skin was markedand prepped in standard sterile fashion. Lidocaine was used for local anesthesia. A 5 Thai needle catheter system was advanced into the peritoneal space. 5500 cc slightly cloudy yellow fluid was taken off. Patient tolerated the procedure well. Impression: Ultrasound guided paracentesis. Signed: Aristeo Xiong [facility] Verified Date/Time: 08/31/2018 17:47:54 Reading Location: [facility] [id number] Ultrasound Reading Room POCT-GLUCOSE [id number] 11:52:00 Test Item Value Reference Range Comments POC-GLUCOSE METER (BEAKER) 151 mg/dL 70-110 TESTED AT [address] (test zayb=1570) [place] [address] POCT-GLUCOSE [id number] 08:19:00 Test Item Value Reference Range Comments POC-GLUCOSE METER (BEAKER) 129 mg/dL 70-110 TESTED AT [address] (test vzgq=7171) [place] [address] [id number] 05:12:00 Test Item Value Reference Range Comments PHOSPHORUS (BEAKER) (test iykt=992) 2.9 mg/dL 2.3-4.7 [id number] 05:12:00 Test Item Value Reference Range Comments MAGNESIUM (BEAKER) (test ovul=795) 2.0 mg/dL 1.6-2.6 COMPREHENSIVE METABOLIC [id number] 05:12:00 Test Item Value Reference Range Comments TOTAL PROTEIN (BEAKER) 5.4 gm/dL 6.0-8.3 (test ctlv=231) ALBUMIN (BEAKER) (test 3.2 g/dL 3.5-5.0 bpnj=2846) ALKALINE PHOSPHATASE 159 U/L 40-150 (BEAKER) (test zoxu=639) BILIRUBIN TOTAL (BEAKER) 1.8 mg/dL 0.2-1.2 (test zsjz=865) SODIUM (BEAKER) (test 125 meq/L 136-145 mrhg=318) POTASSIUM (BEAKER) (test 4.3 meq/L 3.5-5.1 ozxz=206) CHLORIDE (BEAKER) (test 97 meq/L 98-107 tlmg=166) CO2 (BEAKER) (test 22 meq/L 22-29 xtzl=610) BLOOD UREA NITROGEN 21 mg/dL 7-21 (BEAKER) (test edrd=290) CREATININE (BEAKER) (test 1.34 mg/dL 0.57-1.25 pwaj=288) GLUCOSE RANDOM (BEAKER) 113 mg/dL 70-105 (test egnl=700) CALCIUM (BEAKER) (test 8.8 mg/dL 8.4-10.2 nssb=016) AST (SGOT) (BEAKER) (test 22 U/L 5-34 ljpx=351) ALT (SGPT) (BEAKER) (test 11 U/L 6-55 liay=266) EGFR (BEAKER) (test 56 mL/min/1.73 sq m ESTIMATED GFR IS NOT dkcy=1078) ACCURATE CREATININE CLEARANCE IN PREDICTING GLOMERULAR FILTRATION RATE. ESTIMATED GFR IS NOT APPLICABLE FOR DIALYSIS PATIENTS. BILIRUBIN, [id number] 05:12:00 Test Item Value Reference Range Comments BILIRUBIN DIRECT (BEAKER) (test uzor=784) 1.2 mg/dL 0.1-0.5 PROTHROMBIN [id number] 04:48:00 Test Item Value Reference Range Comments PROTIME (BEAKER) (test zkit=666) 22.3 seconds 11.7-14.7 INR (BEAKER) (test izcc=619) 2.0 <=5.9 RECOMMENDED COUMADIN/WARFARIN INR THERAPY RANGESSTANDARD DOSE: 2.0 - 3.0 Includes: PROPHYLAXIS forvenous thrombosis, systemic embolization; TREATMENT for venous thrombosis and/or pulmonary embolus.HIGH RISK: Target INR is 2.5-3.5 for patients with mechanical heart valves.CBC W/PLT COUNT & AUTO [id number] 04:33:00 Test Item Value Reference Range Comments WHITE BLOOD CELL COUNT (BEAKER) (test fdsj=504) 5.5 K/ L 3.5-10.5 RED BLOOD CELL COUNT (BEAKER) (test vfnr=380) 2.58 M/ L 4.63-6.08 HEMOGLOBIN (BEAKER) (test uwcx=168) 7.9 GM/DL 13.7-17.5 HEMATOCRIT (BEAKER) (test vdeo=967) 24.3 % 40.1-51.0 MEAN CORPUSCULAR VOLUME (BEAKER) (test krpr=513) 94.2 fL 79.0-92.2 MEAN CORPUSCULAR HEMOGLOBIN (BEAKER) (test 30.6 pg 25.7-32.2 wfyz=432) MEAN CORPUSCULAR HEMOGLOBIN CONC (BEAKER) (test 32.5 GM/DL 32.3-36.5 ggwf=854) RED CELL DISTRIBUTION WIDTH (BEAKER) (test 15.0 % 11.6-14.4 zrdc=378) PLATELET COUNT (BEAKER) (test lffx=837) 57 K/CU MM 150-450 MEAN PLATELET VOLUME (BEAKER) (test cuhe=733) 9.2 fL 9.4-12.4 NUCLEATED RED BLOOD CELLS (BEAKER) (test 0 /100 WBC 0-0 gtya=661) NEUTROPHILS RELATIVE PERCENT (BEAKER) (test 70 % jsrp=053) LYMPHOCYTES RELATIVE PERCENT (BEAKER) (test 12 % ogbn=276) MONOCYTES RELATIVE PERCENT (BEAKER) (test 14 % vxye=345) EOSINOPHILS RELATIVE PERCENT (BEAKER) (test 4 % owlg=266) BASOPHILS RELATIVE PERCENT (BEAKER) (test 0 % wiru=157) NEUTROPHILS ABSOLUTE COUNT (BEAKER) (test 3.85 K/ L 1.78-5.38 ozoo=914) LYMPHOCYTES ABSOLUTE COUNT (BEAKER) (test 0.67 K/ L 1.32-3.57 emjf=886) MONOCYTES ABSOLUTE COUNT (BEAKER) (test pezn=512) 0.75 K/ L 0.30-0.82 EOSINOPHILS ABSOLUTE COUNT (BEAKER) (test 0.22 K/ L 0.04-0.54 ndgz=406) BASOPHILS ABSOLUTE COUNT (BEAKER) (test ufuk=373) 0.01 K/ L 0.01-0.08 IMMATURE GRANULOCYTES-RELATIVE PERCENT (BEAKER) 1 % 0-1 (test vvlj=3734) BLOOD [id number] 23:01:00 Test Item Value Reference Range Comments CULTURE (BEAKER) (test gwtb=8309) No growth in 5 days POCT-GLUCOSE [id number] 22:15:00 Test Item Value Reference Range Comments POC-GLUCOSE METER (BEAKER) 133 mg/dL 70-110 TESTED AT [address] (test kigj=8471) [place] [id number] POCT-GLUCOSE [id number] 17:42:00 Test Item Value Reference Range Comments POC-GLUCOSE METER (BEAKER) 139 mg/dL 70-110 TESTED AT [address] (test gcps=8021) [place] [id number] POCT-GLUCOSE [id number] 12:02:00 Test Item Value Reference Range Comments POC-GLUCOSE METER (BEAKER) 152 mg/dL 70-110 TESTED AT [address] (test xrsu=8633) [place] [id number] POCT-GLUCOSE [id number] 09:04:00 Test Item Value Reference Range Comments POC-GLUCOSE METER (BEAKER) 130 mg/dL 70-110 TESTED AT [address] (test rfil=1392) [facility] [address] CALCIUM, [id number] 07:27:00 Test Item Value Reference Range Comments CALCIUM IONIZED (BEAKER) (test mxqu=553) 1.10 mmol/L 1.12-1.27 PH, BLOOD (BEAKER) (test mvnn=1677) 7.42 [id number] 06:46:00 Test Item Value Reference Range Comments PHOSPHORUS (BEAKER) (test ckbp=748) 3.0 mg/dL 2.3-4.7 [id number] 06:46:00 Test Item Value Reference Range Comments MAGNESIUM (BEAKER) (test dxci=006) 2.0 mg/dL 1.6-2.6 COMPREHENSIVE METABOLIC [id number] 06:46:00 Test Item Value Reference Range Comments TOTAL PROTEIN (BEAKER) 4.9 gm/dL 6.0-8.3 (test cftn=597) ALBUMIN (BEAKER) (test 3.0 g/dL 3.5-5.0 qcxf=9565) ALKALINE PHOSPHATASE 145 U/L 40-150 (BEAKER) (test rwff=450) BILIRUBIN TOTAL (BEAKER) 1.9 mg/dL 0.2-1.2 (test ijqb=500) SODIUM (BEAKER) (test 127 meq/L 136-145 sctv=711) POTASSIUM (BEAKER) (test 3.7 meq/L 3.5-5.1 eqep=709) CHLORIDE (BEAKER) (test 99 meq/L 98-107 lozi=985) CO2 (BEAKER) (test 21 meq/L 22-29 mbfw=619) BLOOD UREA NITROGEN 20 mg/dL 7-21 (BEAKER) (test cwqu=987) CREATININE (BEAKER) (test 1.21 mg/dL 0.57-1.25 cnwu=768) GLUCOSE RANDOM (BEAKER) 108 mg/dL 70-105 (test obup=977) CALCIUM (BEAKER) (test 8.9 mg/dL 8.4-10.2 lfjr=802) AST (SGOT) (BEAKER) (test 22 U/L 5-34 uaoj=407) ALT (SGPT) (BEAKER) (test 9 U/L 6-55 gwgc=580) EGFR (BEAKER) (test 63 mL/min/1.73 sq m ESTIMATED GFR IS NOT qabv=2149) ACCURATE CREATININE CLEARANCE IN PREDICTING GLOMERULAR FILTRATION RATE. ESTIMATED GFR IS NOT APPLICABLE FOR DIALYSIS PATIENTS. BASIC METABOLIC [id number] 06:46:00 Test Item Value Reference Range Comments SODIUM (BEAKER) (test 127 meq/L 136-145 rjbb=829) POTASSIUM (BEAKER) (test 3.7 meq/L 3.5-5.1 qvva=912) CHLORIDE (BEAKER) (test 99 meq/L 98-107 aiqk=840) CO2 (BEAKER) (test 21 meq/L 22-29 btst=681) BLOOD UREA NITROGEN 20 mg/dL 7-21 (BEAKER) (test qqbw=011) CREATININE (BEAKER) (test 1.21 mg/dL 0.57-1.25 wbke=331) GLUCOSE RANDOM (BEAKER) 108 mg/dL 70-105 (test itnv=800) CALCIUM (BEAKER) (test 8.9 mg/dL 8.4-10.2 hqdz=180) EGFR (BEAKER) (test 63 mL/min/1.73 sq m ESTIMATED GFR IS NOT tjqb=7524) ACCURATE CREATININE CLEARANCE IN PREDICTING GLOMERULAR FILTRATION RATE. ESTIMATED GFR IS NOT APPLICABLE FOR DIALYSIS PATIENTS. BILIRUBIN, [id number] 06:46:00 Test Item Value Reference Range Comments BILIRUBIN DIRECT (BEAKER) (test pcia=100) 1.2 mg/dL 0.1-0.5 CBC W/PLT COUNT & AUTO [id number] 06:30:00 Test Item Value Reference Range Comments WHITE BLOOD CELL COUNT (BEAKER) (test fbbp=372) 3.7 K/ L 3.5-10.5 RED BLOOD CELL COUNT (BEAKER) (test jgfq=005) 2.35 M/ L 4.63-6.08 HEMOGLOBIN (BEAKER) (test ocrw=489) 7.4 GM/DL 13.7-17.5 HEMATOCRIT (BEAKER) (test ghrg=237) 22.1 % 40.1-51.0 MEAN CORPUSCULAR VOLUME (BEAKER) (test hexi=112) 94.0 fL 79.0-92.2 MEAN CORPUSCULAR HEMOGLOBIN (BEAKER) (test 31.5 pg 25.7-32.2 xokj=611) MEAN CORPUSCULAR HEMOGLOBIN CONC (BEAKER) (test 33.5 GM/DL 32.3-36.5 pcwz=088) RED CELL DISTRIBUTION WIDTH (BEAKER) (test 14.8 % 11.6-14.4 rotc=972) PLATELET COUNT (BEAKER) (test wcmc=607) 45 K/CU MM 150-450 MEAN PLATELET VOLUME (BEAKER) (test agnt=508) 8.8 fL 9.4-12.4 NUCLEATED RED BLOOD CELLS (BEAKER) (test 0 /100 WBC 0-0 ghds=197) NEUTROPHILS RELATIVE PERCENT (BEAKER) (test 61 % mogl=754) LYMPHOCYTES RELATIVE PERCENT (BEAKER) (test 14 % mtwi=000) MONOCYTES RELATIVE PERCENT (BEAKER) (test 18 % nivr=203) EOSINOPHILS RELATIVE PERCENT (BEAKER) (test 6 % bgvp=954) BASOPHILS RELATIVE PERCENT (BEAKER) (test 0 % yvkc=777) NEUTROPHILS ABSOLUTE COUNT (BEAKER) (test 2.25 K/ L 1.78-5.38 ffmf=585) LYMPHOCYTES ABSOLUTE COUNT (BEAKER) (test 0.53 K/ L 1.32-3.57 qpet=816) MONOCYTES ABSOLUTE COUNT (BEAKER) (test trmw=410) 0.67 K/ L 0.30-0.82 EOSINOPHILS ABSOLUTE COUNT (BEAKER) (test 0.23 K/ L 0.04-0.54 aciq=666) BASOPHILS ABSOLUTE COUNT (BEAKER) (test zhvj=935) 0.01 K/ L 0.01-0.08 IMMATURE GRANULOCYTES-RELATIVE PERCENT (BEAKER) 1 % 0-1 (test xawv=8532) PROTHROMBIN [id number] 06:07:00 Test Item Value Reference Range Comments PROTIME (BEAKER) (test umhf=984) 21.4 seconds 11.7-14.7 INR (BEAKER) (test iarf=704) 1.9 <=5.9 RECOMMENDED COUMADIN/WARFARIN INR THERAPY RANGESSTANDARD DOSE: 2.0 - 3.0 Includes: PROPHYLAXIS forvenous thrombosis, systemic embolization; TREATMENT for venous thrombosis and/or pulmonary embolus.HIGH RISK: Target INR is 2.5-3.5 for patients with mechanical heart valves.POCT-GLUCOSE [id number] 23:37:00 Test Item Value Reference Range Comments POC-GLUCOSE METER (BEAKER) 154 mg/dL 70-110 TESTED AT [facility] [address] [facility] (test xusg=2204) [facility] [id number] BASIC METABOLIC [id number] 20:17:00 Test Item Value Reference Range Comments SODIUM (BEAKER) (test 125 meq/L 136-145 qeju=796) POTASSIUM (BEAKER) (test 4.0 meq/L 3.5-5.1 qpht=885) CHLORIDE (BEAKER) (test 94 meq/L 98-107 yant=713) CO2 (BEAKER) (test 25 meq/L 22-29 wrmc=278) BLOOD UREA NITROGEN 20 mg/dL 7-21 (BEAKER) (test dhva=207) CREATININE (BEAKER) (test 1.34 mg/dL 0.57-1.25 yarj=074) GLUCOSE RANDOM (BEAKER) 115 mg/dL 70-105 (test qeuu=630) CALCIUM (BEAKER) (test 8.9 mg/dL 8.4-10.2 dycy=054) EGFR (BEAKER) (test 56 mL/min/1.73 sq m ESTIMATED GFR IS NOT rxzj=4621) ACCURATE CREATININE CLEARANCE IN PREDICTING GLOMERULAR FILTRATION RATE. ESTIMATED GFR IS NOT APPLICABLE FOR DIALYSIS PATIENTS. POCT-GLUCOSE [id number] 17:59:00 Test Item Value Reference Range Comments POC-GLUCOSE METER (BEAKER) 161 mg/dL 70-110 TESTED AT [address] (test aedt=9736) [place] [address] BODY FLUID CULTURE + GRAM [id number] 13:31:00 Test Item Value Reference Range Comments CULTURE (BEAKER) (test lncu=5545) No growth GRAM STAIN RESULT (BEAKER) (test No organisms seen ebjf=4923) GRAM STAIN RESULT (BEAKER) (test No White blood cells seen infz=01472) POCT-GLUCOSE [id number] 12:31:00 Test Item Value Reference Range Comments POC-GLUCOSE METER (BEAKER) 114 mg/dL 70-110 TESTED AT [address] (test zcgd=2244) [facility] [address] BASIC METABOLIC [id number] 11:33:00 Test Item Value Reference Range Comments SODIUM (BEAKER) (test 124 meq/L 136-145 rsnu=293) POTASSIUM (BEAKER) (test 4.1 meq/L 3.5-5.1 bmmx=162) CHLORIDE (BEAKER) (test 94 meq/L 98-107 imba=223) CO2 (BEAKER) (test 23 meq/L 22-29 yuik=773) BLOOD UREA NITROGEN 20 mg/dL 7-21 (BEAKER) (test kukm=810) CREATININE (BEAKER) (test 1.22 mg/dL 0.57-1.25 oafb=992) GLUCOSE RANDOM (BEAKER) 94 mg/dL 70-105 (test gzcv=435) CALCIUM (BEAKER) (test 8.8 mg/dL 8.4-10.2 vddu=066) EGFR (BEAKER) (test 62 mL/min/1.73 sq m ESTIMATED GFR IS NOT imxa=3633) ACCURATE CREATININE CLEARANCE IN PREDICTING GLOMERULAR FILTRATION RATE. ESTIMATED GFR IS NOT APPLICABLE FOR DIALYSIS PATIENTS. [id number] 09:24:00 Test Item Value Reference Range Comments FERRITIN (BEAKER) (test ksis=561) 1685 ng/mL 5-275 POCT-GLUCOSE [id number] 07:59:00 Test Item Value Reference Range Comments POC-GLUCOSE METER (BEAKER) 225 mg/dL 70-110 TESTED AT [facility] [address] [facility] (test wwnz=2226) [facility] [address] IRON, TIBC, % SAT. (WITHOUT FERRITIN)2018-08-29 07:54:00 Test Item Value Reference Range Comments IRON (BEAKER) (test knlm=592) 98 ug/dL 40-160 TOTAL IRON BINDING CAPACITY (BEAKER) (test 90 ug/dL 250-450 kkeu=947) IRON % SATURATION (2) (BEAKER) (test zlfr=2898) 109 % 20-55 CALCIUM, [id number] 07:13:00 Test Item Value Reference Range Comments CALCIUM IONIZED (BEAKER) (test xbfd=343) 1.10 mmol/L 1.12-1.27 PH, BLOOD (BEAKER) (test qhnx=6535) 7.37 [id number] 06:32:00 Test Item Value Reference Range Comments PHOSPHORUS (BEAKER) (test rrqg=713) 2.6 mg/dL 2.3-4.7 [id number] 06:32:00 Test Item Value Reference Range Comments MAGNESIUM (BEAKER) (test wzdt=170) 1.8 mg/dL 1.6-2.6 COMPREHENSIVE METABOLIC [id number] 06:32:00 Test Item Value Reference Range Comments TOTAL PROTEIN (BEAKER) 5.0 gm/dL 6.0-8.3 (test digo=177) ALBUMIN (BEAKER) (test 3.2 g/dL 3.5-5.0 opds=3285) ALKALINE PHOSPHATASE 138 U/L 40-150 (BEAKER) (test tady=115) BILIRUBIN TOTAL (BEAKER) 2.1 mg/dL 0.2-1.2 (test ifsz=138) SODIUM (BEAKER) (test 126 meq/L 136-145 czjc=961) POTASSIUM (BEAKER) (test 4.0 meq/L 3.5-5.1 mqcf=746) CHLORIDE (BEAKER) (test 95 meq/L 98-107 mhma=134) CO2 (BEAKER) (test 23 meq/L 22-29 ljgn=662) BLOOD UREA NITROGEN 21 mg/dL 7-21 (BEAKER) (test kznw=366) CREATININE (BEAKER) (test 1.15 mg/dL 0.57-1.25 esmb=159) GLUCOSE RANDOM (BEAKER) 110 mg/dL 70-105 (test kgoa=143) CALCIUM (BEAKER) (test 8.8 mg/dL 8.4-10.2 ycwv=321) AST (SGOT) (BEAKER) (test 22 U/L 5-34 rakv=601) ALT (SGPT) (BEAKER) (test 11 U/L 6-55 ndng=594) EGFR (BEAKER) (test 67 mL/min/1.73 sq m ESTIMATED GFR IS NOT kijp=4410) ACCURATE CREATININE CLEARANCE IN PREDICTING GLOMERULAR FILTRATION RATE. ESTIMATED GFR IS NOT APPLICABLE FOR DIALYSIS PATIENTS. BASIC METABOLIC [id number] 06:32:00 Test Item Value Reference Range Comments SODIUM (BEAKER) (test 126 meq/L 136-145 xdyc=258) POTASSIUM (BEAKER) (test 4.0 meq/L 3.5-5.1 gwbm=251) CHLORIDE (BEAKER) (test 95 meq/L 98-107 yoir=010) CO2 (BEAKER) (test 23 meq/L 22-29 jsjd=979) BLOOD UREA NITROGEN 21 mg/dL 7-21 (BEAKER) (test dilh=355) CREATININE (BEAKER) (test 1.15 mg/dL 0.57-1.25 sokm=717) GLUCOSE RANDOM (BEAKER) 110 mg/dL 70-105 (test vvmv=123) CALCIUM (BEAKER) (test 8.8 mg/dL 8.4-10.2 iizw=366) EGFR (BEAKER) (test 67 mL/min/1.73 sq m ESTIMATED GFR IS NOT gdqx=2495) ACCURATE CREATININE CLEARANCE IN PREDICTING GLOMERULAR FILTRATION RATE. ESTIMATED GFR IS NOT APPLICABLE FOR DIALYSIS PATIENTS. BILIRUBIN, [id number] 06:32:00 Test Item Value Reference Range Comments BILIRUBIN DIRECT (BEAKER) (test zvfi=314) 1.4 mg/dL 0.1-0.5 PROTHROMBIN [id number] 05:44:00 Test Item Value Reference Range Comments PROTIME (BEAKER) (test vzxe=386) 20.9 seconds 11.7-14.7 INR (BEAKER) (test zgxx=741) 1.8 <=5.9 RECOMMENDED COUMADIN/WARFARIN INR THERAPY RANGESSTANDARD DOSE: 2.0 - 3.0 Includes: PROPHYLAXIS forvenous thrombosis, systemic embolization; TREATMENT for venous thrombosis and/or pulmonary embolus.HIGH RISK: Target INR is 2.5-3.5 for patients with mechanical heart valves.CBC W/PLT COUNT & AUTO [id number] 05:43:00 Test Item Value Reference Range Comments WHITE BLOOD CELL COUNT (BEAKER) (test wdjp=106) 4.0 K/ L 3.5-10.5 RED BLOOD CELL COUNT (BEAKER) (test pows=468) 2.30 M/ L 4.63-6.08 HEMOGLOBIN (BEAKER) (test vrkx=927) 7.5 GM/DL 13.7-17.5 HEMATOCRIT (BEAKER) (test bzhw=502) 22.0 % 40.1-51.0 MEAN CORPUSCULAR VOLUME (BEAKER) (test xrgu=417) 95.7 fL 79.0-92.2 MEAN CORPUSCULAR HEMOGLOBIN (BEAKER) (test 32.6 pg 25.7-32.2 selr=054) MEAN CORPUSCULAR HEMOGLOBIN CONC (BEAKER) (test 34.1 GM/DL 32.3-36.5 txmb=412) RED CELL DISTRIBUTION WIDTH (BEAKER) (test 14.8 % 11.6-14.4 kjyj=013) PLATELET COUNT (BEAKER) (test wpvd=579) 51 K/CU MM 150-450 MEAN PLATELET VOLUME (BEAKER) (test zcgd=609) 8.8 fL 9.4-12.4 NUCLEATED RED BLOOD CELLS (BEAKER) (test 0 /100 WBC 0-0 zmpg=363) NEUTROPHILS RELATIVE PERCENT (BEAKER) (test 61 % xckd=592) LYMPHOCYTES RELATIVE PERCENT (BEAKER) (test 12 % nldg=565) MONOCYTES RELATIVE PERCENT (BEAKER) (test 19 % creh=102) EOSINOPHILS RELATIVE PERCENT (BEAKER) (test 7 % acro=344) BASOPHILS RELATIVE PERCENT (BEAKER) (test 0 % idxj=209) NEUTROPHILS ABSOLUTE COUNT (BEAKER) (test 2.43 K/ L 1.78-5.38 wgnj=180) LYMPHOCYTES ABSOLUTE COUNT (BEAKER) (test 0.49 K/ L 1.32-3.57 bjct=057) MONOCYTES ABSOLUTE COUNT (BEAKER) (test jxkb=440) 0.75 K/ L 0.30-0.82 EOSINOPHILS ABSOLUTE COUNT (BEAKER) (test 0.29 K/ L 0.04-0.54 siee=621) BASOPHILS ABSOLUTE COUNT (BEAKER) (test hjgi=994) 0.00 K/ L 0.01-0.08 IMMATURE GRANULOCYTES-RELATIVE PERCENT (BEAKER) 1 % 0-1 (test ejnt=2492) POCT-GLUCOSE [id number] 22:23:00 Test Item Value Reference Range Comments POC-GLUCOSE METER (BEAKER) 166 mg/dL 70-110 TESTED AT [address] (test acym=4711) [place] [address] POCT-GLUCOSE [id number] 16:12:00 Test Item Value Reference Range Comments POC-GLUCOSE METER (BEAKER) 110 mg/dL 70-110 TESTED AT [address] (test jmtf=8165) [place] [address] PTH, [id number] 15:57:00 Test Item Value Reference Range Comments PARATHYROID HORMONE INTACT (BEAKER) (test 26.2 pg/mL 8.5-72.5 dcfy=475) GAMMA GLUTAMYL TRANSFERASE ([id number] 15:51:00 Test Item Value Reference Range Comments GAMMA GLUTAMYL TRANSFERASE (BEAKER) (test bslp=036) 11 U/L 9-64 BASIC METABOLIC [id number] 15:49:00 Test Item Value Reference Range Comments SODIUM (BEAKER) (test 127 meq/L 136-145 vnkz=462) POTASSIUM (BEAKER) (test 3.6 meq/L 3.5-5.1 oblh=826) CHLORIDE (BEAKER) (test 97 meq/L 98-107 qsms=113) CO2 (BEAKER) (test 23 meq/L 22-29 bamc=152) BLOOD UREA NITROGEN 20 mg/dL 7-21 (BEAKER) (test szon=605) CREATININE (BEAKER) (test 1.19 mg/dL 0.57-1.25 ikcx=691) GLUCOSE RANDOM (BEAKER) 123 mg/dL 70-105 (test oxdz=489) CALCIUM (BEAKER) (test 8.6 mg/dL 8.4-10.2 skqq=142) EGFR (BEAKER) (test 64 mL/min/1.73 sq m ESTIMATED GFR IS NOT sfhd=9435) ACCURATE CREATININE CLEARANCE IN PREDICTING GLOMERULAR FILTRATION RATE. ESTIMATED GFR IS NOT APPLICABLE FOR DIALYSIS PATIENTS. VITAMIN D, [id number] 15:24:00 Test Item Value Reference Range Comments VITAMIN D 25-OH (BEAKER) (test kxuh=8994) 11.2 ng/mL 6.6-49.9 Effective 08/06/2017: Reference Range ChangeNew: 6.6-49.9 ng/mL Previous: 13.0 -47.8 ng/mLRecommended Vitamin D Target Range: 30.0-40.0 ng/mLPOCT-GLUCOSE [id number] 12:35:00 Test Item Value Reference Range Comments POC-GLUCOSE METER (BEAKER) 138 mg/dL 70-110 TESTED AT [facility] [address] [facility] (test vech=7928) [facility] [address] BASIC METABOLIC [id number] 09:59:00 Test Item Value Reference Range Comments SODIUM (BEAKER) (test 130 meq/L 136-145 ariu=965) POTASSIUM (BEAKER) (test 4.1 meq/L 3.5-5.1 clft=432) CHLORIDE (BEAKER) (test 99 meq/L 98-107 okqb=659) CO2 (BEAKER) (test 24 meq/L 22-29 ltcy=888) BLOOD UREA NITROGEN 22 mg/dL 7-21 (BEAKER) (test kxmv=985) CREATININE (BEAKER) (test 1.31 mg/dL 0.57-1.25 cvwf=689) GLUCOSE RANDOM (BEAKER) 121 mg/dL 70-105 (test bpty=654) CALCIUM (BEAKER) (test 9.4 mg/dL 8.4-10.2 xhne=758) EGFR (BEAKER) (test 57 mL/min/1.73 sq m ESTIMATED GFR IS NOT zhwk=1013) ACCURATE CREATININE CLEARANCE IN PREDICTING GLOMERULAR FILTRATION RATE. ESTIMATED GFR IS NOT APPLICABLE FOR DIALYSIS PATIENTS. POCT-GLUCOSE [id number] 08:17:00 Test Item Value Reference Range Comments POC-GLUCOSE METER (BEAKER) 131 mg/dL 70-110 TESTED AT [facility] [address] [facility] (test paun=4296) [facility] [address] CALCIUM, [id number] 06:01:00 Test Item Value Reference Range Comments CALCIUM IONIZED (BEAKER) (test kvmk=698) 1.06 mmol/L 1.12-1.27 PH, BLOOD (BEAKER) (test fsky=6714) 7.42 [id number] 05:52:00 Test Item Value Reference Range Comments PHOSPHORUS (BEAKER) (test oaaf=953) 3.1 mg/dL 2.3-4.7 [id number] 05:52:00 Test Item Value Reference Range Comments MAGNESIUM (BEAKER) (test jwpa=640) 2.3 mg/dL 1.6-2.6 BASIC METABOLIC [id number] 05:52:00 Test Item Value Reference Range Comments SODIUM (BEAKER) (test 130 meq/L 136-145 oyrc=109) POTASSIUM (BEAKER) (test 3.8 meq/L 3.5-5.1 esvz=997) CHLORIDE (BEAKER) (test 98 meq/L 98-107 jmok=440) CO2 (BEAKER) (test 22 meq/L 22-29 qsyi=402) BLOOD UREA NITROGEN 22 mg/dL 7-21 (BEAKER) (test smfi=780) CREATININE (BEAKER) (test 1.37 mg/dL 0.57-1.25 ctkc=639) GLUCOSE RANDOM (BEAKER) 118 mg/dL 70-105 (test qmqb=894) CALCIUM (BEAKER) (test 9.6 mg/dL 8.4-10.2 uvvw=663) EGFR (BEAKER) (test 54 mL/min/1.73 sq m ESTIMATED GFR IS NOT nkkc=0810) ACCURATE CREATININE CLEARANCE IN PREDICTING GLOMERULAR FILTRATION RATE. ESTIMATED GFR IS NOT APPLICABLE FOR DIALYSIS PATIENTS. Specimen slightly ictericCOMPREHENSIVE METABOLIC [id number] 05:52:00 Test Item Value Reference Range Comments TOTAL PROTEIN (BEAKER) 5.6 gm/dL 6.0-8.3 (test qksk=772) ALBUMIN (BEAKER) (test 3.6 g/dL 3.5-5.0 fffb=7559) ALKALINE PHOSPHATASE 146 U/L 40-150 (BEAKER) (test alxt=960) BILIRUBIN TOTAL (BEAKER) 2.5 mg/dL 0.2-1.2 (test kzfp=928) SODIUM (BEAKER) (test 130 meq/L 136-145 qlco=963) POTASSIUM (BEAKER) (test 3.8 meq/L 3.5-5.1 boog=405) CHLORIDE (BEAKER) (test 98 meq/L 98-107 gyvg=273) CO2 (BEAKER) (test 22 meq/L 22-29 fxez=281) BLOOD UREA NITROGEN 22 mg/dL 7-21 (BEAKER) (test xvhl=827) CREATININE (BEAKER) (test 1.37 mg/dL 0.57-1.25 jtje=787) GLUCOSE RANDOM (BEAKER) 118 mg/dL 70-105 (test ezhc=296) CALCIUM (BEAKER) (test 9.6 mg/dL 8.4-10.2 dooo=980) AST (SGOT) (BEAKER) (test 25 U/L 5-34 usbi=639) ALT (SGPT) (BEAKER) (test 10 U/L 6-55 hqtn=231) EGFR (BEAKER) (test 54 mL/min/1.73 sq m ESTIMATED GFR IS NOT poeu=8566) ACCURATE CREATININE CLEARANCE IN PREDICTING GLOMERULAR FILTRATION RATE. ESTIMATED GFR IS NOT APPLICABLE FOR DIALYSIS PATIENTS. Specimen slightly ictericBILIRUBIN, [id number] 05:52:00 Test Item Value Reference Range Comments BILIRUBIN DIRECT (BEAKER) (test fldm=369) 1.6 mg/dL 0.1-0.5 PROTHROMBIN [id number] 05:41:00 Test Item Value Reference Range Comments PROTIME (BEAKER) (test zstb=572) 21.3 seconds 11.7-14.7 INR (BEAKER) (test owep=380) 1.8 <=5.9 RECOMMENDED COUMADIN/WARFARIN INR THERAPY RANGESSTANDARD DOSE: 2.0 - 3.0 Includes: PROPHYLAXIS forvenous thrombosis, systemic embolization; TREATMENT for venous thrombosis and/or pulmonary embolus.HIGH RISK: Target INR is 2.5-3.5 for patients with mechanical heart valves.CBC W/PLT COUNT & AUTO [id number] 05:32:00 Test Item Value Reference Range Comments WHITE BLOOD CELL COUNT (BEAKER) (test mvay=879) 5.0 K/ L 3.5-10.5 RED BLOOD CELL COUNT (BEAKER) (test dica=838) 2.53 M/ L 4.63-6.08 HEMOGLOBIN (BEAKER) (test rgjy=953) 8.1 GM/DL 13.7-17.5 HEMATOCRIT (BEAKER) (test renp=175) 23.6 % 40.1-51.0 MEAN CORPUSCULAR VOLUME (BEAKER) (test tfdi=099) 93.3 fL 79.0-92.2 MEAN CORPUSCULAR HEMOGLOBIN (BEAKER) (test 32.0 pg 25.7-32.2 ffmp=143) MEAN CORPUSCULAR HEMOGLOBIN CONC (BEAKER) (test 34.3 GM/DL 32.3-36.5 wffo=125) RED CELL DISTRIBUTION WIDTH (BEAKER) (test 14.6 % 11.6-14.4 wuzd=407) PLATELET COUNT (BEAKER) (test ndae=882) 73 K/CU MM 150-450 MEAN PLATELET VOLUME (BEAKER) (test mlrx=223) 8.8 fL 9.4-12.4 NUCLEATED RED BLOOD CELLS (BEAKER) (test 0 /100 WBC 0-0 xrbe=087) NEUTROPHILS RELATIVE PERCENT (BEAKER) (test 71 % oxlj=898) LYMPHOCYTES RELATIVE PERCENT (BEAKER) (test 10 % pagc=247) MONOCYTES RELATIVE PERCENT (BEAKER) (test 16 % nffr=832) EOSINOPHILS RELATIVE PERCENT (BEAKER) (test 3 % dlzm=128) BASOPHILS RELATIVE PERCENT (BEAKER) (test 0 % wneb=656) NEUTROPHILS ABSOLUTE COUNT (BEAKER) (test 3.56 K/ L 1.78-5.38 kmdj=642) LYMPHOCYTES ABSOLUTE COUNT (BEAKER) (test 0.48 K/ L 1.32-3.57 qmgk=027) MONOCYTES ABSOLUTE COUNT (BEAKER) (test wgws=095) 0.80 K/ L 0.30-0.82 EOSINOPHILS ABSOLUTE COUNT (BEAKER) (test 0.13 K/ L 0.04-0.54 ppsf=744) BASOPHILS ABSOLUTE COUNT (BEAKER) (test iosg=490) 0.01 K/ L 0.01-0.08 IMMATURE GRANULOCYTES-RELATIVE PERCENT (BEAKER) 1 % 0-1 (test hgmr=8387) POCT-GLUCOSE [id number] 21:24:00 Test Item Value Reference Range Comments POC-GLUCOSE METER (BEAKER) 137 mg/dL 70-110 TESTED AT [address] (test ikdg=6049) [place] [address] POCT-GLUCOSE [id number] 17:52:00 Test Item Value Reference Range Comments POC-GLUCOSE METER (BEAKER) 166 mg/dL 70-110 TESTED AT [address] (test vbxj=7778) [place] [address] BASIC METABOLIC [id number] 17:48:00 Test Item Value Reference Range Comments SODIUM (BEAKER) (test 128 meq/L 136-145 ataj=665) POTASSIUM (BEAKER) (test 4.0 meq/L 3.5-5.1 txiv=844) CHLORIDE (BEAKER) (test 97 meq/L 98-107 tzmm=753) CO2 (BEAKER) (test 23 meq/L 22-29 geak=743) BLOOD UREA NITROGEN 24 mg/dL 7-21 (BEAKER) (test fwej=141) CREATININE (BEAKER) (test 1.25 mg/dL 0.57-1.25 bplo=823) GLUCOSE RANDOM (BEAKER) 123 mg/dL 70-105 (test shcu=452) CALCIUM (BEAKER) (test 8.9 mg/dL 8.4-10.2 hwsh=821) EGFR (BEAKER) (test 60 mL/min/1.73 sq m ESTIMATED GFR IS NOT wvfi=5048) ACCURATE CREATININE CLEARANCE IN PREDICTING GLOMERULAR FILTRATION RATE. ESTIMATED GFR IS NOT APPLICABLE FOR DIALYSIS PATIENTS. POCT-GLUCOSE [id number] 12:18:00 Test Item Value Reference Range Comments POC-GLUCOSE METER (BEAKER) 152 mg/dL 70-110 TESTED AT [address] (test palg=8662) [place] [address] POCT-GLUCOSE [id number] 09:31:00 Test Item Value Reference Range Comments POC-GLUCOSE METER (BEAKER) 142 mg/dL 70-110 TESTED AT [address] (test dsms=1166) [facility] [address] BASIC METABOLIC [id number] 09:03:00 Test Item Value Reference Range Comments SODIUM (BEAKER) (test 125 meq/L 136-145 ssjr=931) POTASSIUM (BEAKER) (test 5.1 meq/L 3.5-5.1 Specimen slightly wvzr=955) hemolyzed CHLORIDE (BEAKER) (test 95 meq/L 98-107 nsfx=418) CO2 (BEAKER) (test 23 meq/L 22-29 pdsu=507) BLOOD UREA NITROGEN 26 mg/dL 7-21 (BEAKER) (test wxro=997) CREATININE (BEAKER) (test 1.25 mg/dL 0.57-1.25 Specimen slightly cqsp=309) hemolyzed GLUCOSE RANDOM (BEAKER) 99 mg/dL 70-105 (test plmr=673) CALCIUM (BEAKER) (test 9.0 mg/dL 8.4-10.2 qahn=100) EGFR (BEAKER) (test 60 mL/min/1.73 sq m ESTIMATED GFR IS NOT lcez=3238) ACCURATE CREATININE CLEARANCE IN PREDICTING GLOMERULAR FILTRATION RATE. ESTIMATED GFR IS NOT APPLICABLE FOR DIALYSIS PATIENTS. POCT-GLUCOSE [id number] 08:38:00 Test Item Value Reference Range Comments POC-GLUCOSE METER (BEAKER) 171 mg/dL 70-110 TESTED AT [address] (test xbpt=4769) [place] [id number] 05:30:00 Test Item Value Reference Range Comments PHOSPHORUS (BEAKER) (test abhr=883) 2.9 mg/dL 2.3-4.7 [id number] 05:30:00 Test Item Value Reference Range Comments MAGNESIUM (BEAKER) (test lqug=880) 2.2 mg/dL 1.6-2.6 COMPREHENSIVE METABOLIC [id number] 05:30:00 Test Item Value Reference Range Comments TOTAL PROTEIN (BEAKER) 5.2 gm/dL 6.0-8.3 (test aehm=551) ALBUMIN (BEAKER) (test 3.4 g/dL 3.5-5.0 yecy=3510) ALKALINE PHOSPHATASE 134 U/L 40-150 (BEAKER) (test qvgo=849) BILIRUBIN TOTAL (BEAKER) 2.3 mg/dL 0.2-1.2 (test oxkd=778) SODIUM (BEAKER) (test 124 meq/L 136-145 pylb=017) POTASSIUM (BEAKER) (test 4.9 meq/L 3.5-5.1 hqpd=385) CHLORIDE (BEAKER) (test 94 meq/L 98-107 wffo=843) CO2 (BEAKER) (test 24 meq/L 22-29 tpqd=492) BLOOD UREA NITROGEN 27 mg/dL 7-21 (BEAKER) (test oysh=784) CREATININE (BEAKER) (test 1.27 mg/dL 0.57-1.25 avvk=285) GLUCOSE RANDOM (BEAKER) 122 mg/dL 70-105 (test hlym=133) CALCIUM (BEAKER) (test 9.2 mg/dL 8.4-10.2 wnhd=457) AST (SGOT) (BEAKER) (test 24 U/L 5-34 pjsg=588) ALT (SGPT) (BEAKER) (test 10 U/L 6-55 xpeg=418) EGFR (BEAKER) (test 59 mL/min/1.73 sq m ESTIMATED GFR IS NOT kdzi=8524) ACCURATE CREATININE CLEARANCE IN PREDICTING GLOMERULAR FILTRATION RATE. ESTIMATED GFR IS NOT APPLICABLE FOR DIALYSIS PATIENTS. BILIRUBIN, [id number] 05:30:00 Test Item Value Reference Range Comments BILIRUBIN DIRECT (BEAKER) (test qhcx=366) 1.5 mg/dL 0.1-0.5 PROTHROMBIN [id number] 05:09:00 Test Item Value Reference Range Comments PROTIME (BEAKER) (test obik=285) 22.3 seconds 11.7-14.7 INR (BEAKER) (test zdyu=611) 2.0 <=5.9 RECOMMENDED COUMADIN/WARFARIN INR THERAPY RANGESSTANDARD DOSE: 2.0 - 3.0 Includes: PROPHYLAXIS forvenous thrombosis, systemic embolization; TREATMENT for venous thrombosis and/or pulmonary embolus.HIGH RISK: Target INR is 2.5-3.5 for patients with mechanical heart valves.CBC W/PLT COUNT & AUTO [id number] 04:59:00 Test Item Value Reference Range Comments WHITE BLOOD CELL COUNT (BEAKER) (test vdee=909) 5.0 K/ L 3.5-10.5 RED BLOOD CELL COUNT (BEAKER) (test lcnx=063) 2.24 M/ L 4.63-6.08 HEMOGLOBIN (BEAKER) (test ojpn=181) 7.2 GM/DL 13.7-17.5 HEMATOCRIT (BEAKER) (test leay=676) 20.8 % 40.1-51.0 MEAN CORPUSCULAR VOLUME (BEAKER) (test osod=847) 92.9 fL 79.0-92.2 MEAN CORPUSCULAR HEMOGLOBIN (BEAKER) (test 32.1 pg 25.7-32.2 fhbb=443) MEAN CORPUSCULAR HEMOGLOBIN CONC (BEAKER) (test 34.6 GM/DL 32.3-36.5 trqr=325) RED CELL DISTRIBUTION WIDTH (BEAKER) (test 14.2 % 11.6-14.4 ibse=347) PLATELET COUNT (BEAKER) (test qpaq=403) 56 K/CU MM 150-450 MEAN PLATELET VOLUME (BEAKER) (test gawq=043) 8.9 fL 9.4-12.4 NUCLEATED RED BLOOD CELLS (BEAKER) (test 0 /100 WBC 0-0 lgsf=518) NEUTROPHILS RELATIVE PERCENT (BEAKER) (test 82 % rmou=279) LYMPHOCYTES RELATIVE PERCENT (BEAKER) (test 5 % xqvm=691) MONOCYTES RELATIVE PERCENT (BEAKER) (test 12 % hprl=963) EOSINOPHILS RELATIVE PERCENT (BEAKER) (test 0 % prsp=118) BASOPHILS RELATIVE PERCENT (BEAKER) (test 0 % tdei=575) NEUTROPHILS ABSOLUTE COUNT (BEAKER) (test 4.12 K/ L 1.78-5.38 srmv=813) LYMPHOCYTES ABSOLUTE COUNT (BEAKER) (test 0.26 K/ L 1.32-3.57 joyo=755) MONOCYTES ABSOLUTE COUNT (BEAKER) (test tfht=689) 0.59 K/ L 0.30-0.82 EOSINOPHILS ABSOLUTE COUNT (BEAKER) (test 0.00 K/ L 0.04-0.54 tnxi=246) BASOPHILS ABSOLUTE COUNT (BEAKER) (test ucci=858) 0.00 K/ L 0.01-0.08 IMMATURE GRANULOCYTES-RELATIVE PERCENT (BEAKER) 1 % 0-1 (test iehf=1706) CALCIUM, [id number] 04:57:00 Test Item Value Reference Range Comments CALCIUM IONIZED (BEAKER) (test tfig=581) 1.14 mmol/L 1.12-1.27 PH, BLOOD (BEAKER) (test sahf=6404) 7.39 POCT-GLUCOSE [id number] 00:41:00 Test Item Value Reference Range Comments POC-GLUCOSE METER (BEAKER) 186 mg/dL 70-110 TESTED AT [facility] [address] [facility] (test atrs=5012) [facility] [address] CORTISOL,60 [id number] 23:00:00 Test Item Value Reference Range Comments CORTISOL BASELINE NETWORKED (BEAKER) (test 7.5 mcg/dL ctqe=9711) CORTISOL 30 MINUTE NETWORKED (BEAKER) (test 14.1 mcg/dL fais=2618) CORTISOL, 60 MINUTE (BEAKER) (test gpaa=2219) 18.9 ug/dL ACTH STIMULATION TEST INTERPRETATION GUIDELINES(Synonyms: [...] serum cortisollevel 60 minutes after cosyntropin administration.CORTISOL,30 [id number] 22:05:00 Test Item Value Reference Range Comments CORTISOL BASELINE NETWORKED (BEAKER) (test 7.5 mcg/dL viqg=5379) CORTISOL, 30 MINUTE (BEAKER) (test pkrh=2489) 14.1 ug/dL ACTH STIMULATION TEST INTERPRETATION GUIDELINES(Synonyms: [...] study by Mindy et al (NEVAEH 2000,283( 8):7332-45), the ACTH Stimulation Test provides important prognostic [...] cortisollevel 60 minutes after cosyntropin administration.BASIC METABOLIC [id number] 21:42:00 Test Item Value Reference Range Comments SODIUM (BEAKER) (test 123 meq/L 136-145 lrdi=215) POTASSIUM (BEAKER) (test 4.3 meq/L 3.5-5.1 rnkg=574) CHLORIDE (BEAKER) (test 93 meq/L 98-107 gzzd=495) CO2 (BEAKER) (test 24 meq/L 22-29 trux=269) BLOOD UREA NITROGEN 29 mg/dL 7-21 (BEAKER) (test cltj=415) CREATININE (BEAKER) (test 1.38 mg/dL 0.57-1.25 pcnr=643) GLUCOSE RANDOM (BEAKER) 109 mg/dL 70-105 (test semh=329) CALCIUM (BEAKER) (test 9.2 mg/dL 8.4-10.2 zuat=989) EGFR (BEAKER) (test 54 mL/min/1.73 sq m ESTIMATED GFR IS NOT eylt=2127) ACCURATE CREATININE CLEARANCE IN PREDICTING GLOMERULAR FILTRATION RATE. ESTIMATED GFR IS NOT APPLICABLE FOR DIALYSIS PATIENTS. Call results to Dr Almendarez METABOLIC [id number] 18:03:00 Test Item Value Reference Range Comments SODIUM (BEAKER) (test 124 meq/L 136-145 srua=624) POTASSIUM (BEAKER) (test 4.6 meq/L 3.5-5.1 beuh=275) CHLORIDE (BEAKER) (test 93 meq/L 98-107 fltj=767) CO2 (BEAKER) (test 25 meq/L 22-29 irrs=607) BLOOD UREA NITROGEN 32 mg/dL 7-21 (BEAKER) (test sanq=611) CREATININE (BEAKER) (test 1.40 mg/dL 0.57-1.25 mlpj=485) GLUCOSE RANDOM (BEAKER) 94 mg/dL 70-105 (test zcwt=042) CALCIUM (BEAKER) (test 9.0 mg/dL 8.4-10.2 qlkp=932) EGFR (BEAKER) (test 53 mL/min/1.73 sq m ESTIMATED GFR IS NOT wgwt=3432) ACCURATE CREATININE CLEARANCE IN PREDICTING GLOMERULAR FILTRATION RATE. ESTIMATED GFR IS NOT APPLICABLE FOR DIALYSIS PATIENTS. BODY FLUID CELL COUNT WITH [id number] 13:54:00 Test Item Value Reference Range Comments APPEARANCE FLUID (BEAKER) (test lsiw=913) Slightly Hazy Clear COLOR FLUID (BEAKER) (test ehef=016) Yellow Colorless, Straw RBC FLUID (BEAKER) (test bsvu=655) 1000 /cu mm <=1 ADJUSTED WBC FLUID (BEAKER) (test smlw=1893) 54 /cu mm <=5 LINING CELLS (BEAKER) (test lucl=8904) 2 /cu mm <=1 NEUTROPHILS FLUID (BEAKER) (test tpnn=5273) 6 % LYMPHS FLUID (BEAKER) (test bxvc=786) 25 % MONO/MACROPHAGE FLUID (BEAKER) (test 69 % fxft=071) EOSINOPHILS FLUID (BEAKER) (test bifs=047) 0 % BASO FLUID (BEAKER) (test celu=851) 0 % CONTAINER BODY FLUID (BEAKER) (test Sterile Vial uaui=6426) ALBUMIN, BODY [id number] 13:45:00 Test Item Value Reference Range Comments ALBUMIN FLUID (BEAKER) (test ephs=652) 0.8 gm/dL Reference Range: No Normals Assay performance has not been validated for this type of specimen.LACTATE DEHYDROGENASE (LDH), BODY [id number] 13:13:00 Test Item Value Reference Range Comments LACTATE DEHYDROGENASE FLUID (BEAKER) (test kfmn=722) < U/L Absence of reference range indicates that normals have not been defined.Assay performance has not been validated for this type of specimen.GLUCOSE, BODY [id number] 13:13:00 Test Item Value Reference Range Comments GLUCOSE, BODY FLUID (BEAKER) (test zyiv=6754) 82 mg/dL Absence of reference range indicates that normals have not been defined.Assay performance has not been validated for this type of specimen.TRIGLYCERIDES, BODY [id number] 13:10:00 Test Item Value Reference Range Comments TRIGLYCERIDES FLUID (BEAKER) (test ulvu=932) 39 mg/dL Reference Range: No Normals Assay performance has not been validated for this type of specimen.PROTEIN, BODY [id number] 13:09:00 Test Item Value Reference Range Comments PROTEIN FLUID (BEAKER) (test pwhx=796) 1.2 g/dL Absence of reference range indicates that normals have not been defined.Assay performance has not been validated for this type of specimen.CORTISOL, [id number] 12:52:00 Test Item Value Reference Range Comments CORTISOL, BASELINE (BEAKER) (test mzso=5587) 7.5 ug/dL ACTH STIMULATION TEST INTERPRETATION GUIDELINES(Synonyms: [...] cortisollevel 60 minutes after cosyntropin administration.BASIC METABOLIC [id number] 12:40:00 Test Item Value Reference Range Comments SODIUM (BEAKER) (test 119 meq/L 136-145 amzc=239) POTASSIUM (BEAKER) (test 5.2 meq/L 3.5-5.1 dotz=655) CHLORIDE (BEAKER) (test 90 meq/L 98-107 yzjh=757) CO2 (BEAKER) (test 23 meq/L 22-29 gjhv=914) BLOOD UREA NITROGEN 34 mg/dL 7-21 (BEAKER) (test jluf=177) CREATININE (BEAKER) (test 1.46 mg/dL 0.57-1.25 jmhl=454) GLUCOSE RANDOM (BEAKER) 84 mg/dL 70-105 (test qgug=491) CALCIUM (BEAKER) (test 8.8 mg/dL 8.4-10.2 sgxj=651) EGFR (BEAKER) (test 51 mL/min/1.73 sq m ESTIMATED GFR IS NOT cpat=9953) ACCURATE CREATININE CLEARANCE IN PREDICTING GLOMERULAR FILTRATION RATE. ESTIMATED GFR IS NOT APPLICABLE FOR DIALYSIS PATIENTS. Specimen slightly ictericRAD, CHEST, 1 VIEW, NON [id number] 11:50:00Reason for exam:->coughShould this be performed at the bedside?->YesFINAL REPORT Chest one view compared to May 12, 2018 Discussion: There is diffuse interstitial prominence. No effusion or pneumothorax. Heart size normal. IMPRESSIONS: No changeSigned: Karina Pugheport Verified Date/ Time: 08/26/2018 11:50:19 Reading Location: [facility] Radiology Reading Room BASIC METABOLIC [id number] 09:35:00 Test Item Value Reference Range Comments SODIUM (BEAKER) (test 119 meq/L 136-145 vajq=337) POTASSIUM (BEAKER) (test 4.9 meq/L 3.5-5.1 fjbx=721) CHLORIDE (BEAKER) (test 89 meq/L 98-107 vpix=817) CO2 (BEAKER) (test 23 meq/L 22-29 msbo=743) BLOOD UREA NITROGEN 36 mg/dL 7-21 (BEAKER) (test lnsv=984) CREATININE (BEAKER) (test 1.46 mg/dL 0.57-1.25 tutw=267) GLUCOSE RANDOM (BEAKER) 83 mg/dL 70-105 (test omzb=779) CALCIUM (BEAKER) (test 8.8 mg/dL 8.4-10.2 ffxk=767) EGFR (BEAKER) (test 51 mL/min/1.73 sq m ESTIMATED GFR IS NOT zcyv=6963) ACCURATE CREATININE CLEARANCE IN PREDICTING GLOMERULAR FILTRATION RATE. ESTIMATED GFR IS NOT APPLICABLE FOR DIALYSIS PATIENTS. POCT-GLUCOSE [id number] 05:56:00 Test Item Value Reference Range Comments POC-GLUCOSE METER (BEAKER) 86 mg/dL 70-110 TESTED AT [facility] [address] [facility] (test hmjd=0096) [facility] [address] CBC W/PLT COUNT & AUTO [id number] 04:42:00 Test Item Value Reference Range Comments WHITE BLOOD CELL COUNT (BEAKER) (test hcxt=159) 10.5 K/ L 3.5-10.5 RED BLOOD CELL COUNT (BEAKER) (test tlbx=180) 2.37 M/ L 4.63-6.08 HEMOGLOBIN (BEAKER) (test mrdh=512) 7.4 GM/DL 13.7-17.5 HEMATOCRIT (BEAKER) (test fyjd=099) 21.6 % 40.1-51.0 MEAN CORPUSCULAR VOLUME (BEAKER) (test suux=287) 91.1 fL 79.0-92.2 MEAN CORPUSCULAR HEMOGLOBIN (BEAKER) (test 31.2 pg 25.7-32.2 asey=087) MEAN CORPUSCULAR HEMOGLOBIN CONC (BEAKER) (test 34.3 GM/DL 32.3-36.5 pxcz=627) RED CELL DISTRIBUTION WIDTH (BEAKER) (test 14.4 % 11.6-14.4 ttzw=664) PLATELET COUNT (BEAKER) (test rrhg=662) 67 K/CU MM 150-450 MEAN PLATELET VOLUME (BEAKER) (test oqaf=053) 8.3 fL 9.4-12.4 NUCLEATED RED BLOOD CELLS (BEAKER) (test 0 /100 WBC 0-0 oqqk=960) NEUTROPHILS RELATIVE PERCENT (BEAKER) (test 82 % nugy=471) LYMPHOCYTES RELATIVE PERCENT (BEAKER) (test 4 % mcbm=278) MONOCYTES RELATIVE PERCENT (BEAKER) (test 12 % vrfu=209) EOSINOPHILS RELATIVE PERCENT (BEAKER) (test 1 % kody=020) BASOPHILS RELATIVE PERCENT (BEAKER) (test 0 % giti=815) NEUTROPHILS ABSOLUTE COUNT (BEAKER) (test 8.62 K/ L 1.78-5.38 znsi=354) LYMPHOCYTES ABSOLUTE COUNT (BEAKER) (test 0.45 K/ L 1.32-3.57 ezgn=084) MONOCYTES ABSOLUTE COUNT (BEAKER) (test hkvl=027) 1.31 K/ L 0.30-0.82 EOSINOPHILS ABSOLUTE COUNT (BEAKER) (test 0.10 K/ L 0.04-0.54 monl=231) BASOPHILS ABSOLUTE COUNT (BEAKER) (test cqqw=963) 0.00 K/ L 0.01-0.08 IMMATURE GRANULOCYTES-RELATIVE PERCENT (BEAKER) 1 % 0-1 (test oopp=7912) COMPREHENSIVE METABOLIC [id number] 04:36:00 Test Item Value Reference Range Comments TOTAL PROTEIN (BEAKER) 4.9 gm/dL 6.0-8.3 (test hlqm=593) ALBUMIN (BEAKER) (test 2.8 g/dL 3.5-5.0 ijin=6946) ALKALINE PHOSPHATASE 146 U/L 40-150 (BEAKER) (test byza=417) BILIRUBIN TOTAL (BEAKER) 2.9 mg/dL 0.2-1.2 (test kqux=584) SODIUM (BEAKER) (test 118 meq/L 136-145 obtl=856) POTASSIUM (BEAKER) (test 5.2 meq/L 3.5-5.1 uheh=982) CHLORIDE (BEAKER) (test 90 meq/L 98-107 tded=290) CO2 (BEAKER) (test 23 meq/L 22-29 knbu=850) BLOOD UREA NITROGEN 37 mg/dL 7-21 (BEAKER) (test imvx=948) CREATININE (BEAKER) (test 1.47 mg/dL 0.57-1.25 kbeq=251) GLUCOSE RANDOM (BEAKER) 65 mg/dL 70-105 (test tkxc=930) CALCIUM (BEAKER) (test 8.9 mg/dL 8.4-10.2 wegj=441) AST (SGOT) (BEAKER) (test 29 U/L 5-34 ajmu=272) ALT (SGPT) (BEAKER) (test 10 U/L 6-55 wtpj=387) EGFR (BEAKER) (test 50 mL/min/1.73 sq m ESTIMATED GFR IS NOT hmnm=6921) ACCURATE CREATININE CLEARANCE IN PREDICTING GLOMERULAR FILTRATION RATE. ESTIMATED GFR IS NOT APPLICABLE FOR DIALYSIS PATIENTS. Specimen slightly [id number] 04:33:00 Test Item Value Reference Range Comments PHOSPHORUS (BEAKER) (test wdup=425) 3.1 mg/dL 2.3-4.7 [id number] 04:33:00 Test Item Value Reference Range Comments MAGNESIUM (BEAKER) (test vrzu=909) 2.1 mg/dL 1.6-2.6 CALCIUM, [id number] 04:05:00 Test Item Value Reference Range Comments CALCIUM IONIZED (BEAKER) (test xbxa=623) 1.13 mmol/L 1.12-1.27 PH, BLOOD (BEAKER) (test otrh=2655) 7.38 BASIC METABOLIC [id number] 01:34:00 Test Item Value Reference Range Comments SODIUM (BEAKER) (test 117 meq/L 136-145 pbgp=640) POTASSIUM (BEAKER) (test 4.9 meq/L 3.5-5.1 rpjz=278) CHLORIDE (BEAKER) (test 89 meq/L 98-107 xkgi=050) CO2 (BEAKER) (test 22 meq/L 22-29 ahtr=799) BLOOD UREA NITROGEN 37 mg/dL 7-21 (BEAKER) (test fohy=596) CREATININE (BEAKER) (test 1.52 mg/dL 0.57-1.25 ufos=405) GLUCOSE RANDOM (BEAKER) 67 mg/dL 70-105 (test izte=485) CALCIUM (BEAKER) (test 9.1 mg/dL 8.4-10.2 sdbv=715) EGFR (BEAKER) (test 48 mL/min/1.73 sq m ESTIMATED GFR IS NOT iazg=5679) ACCURATE CREATININE CLEARANCE IN PREDICTING GLOMERULAR FILTRATION RATE. ESTIMATED GFR IS NOT APPLICABLE FOR DIALYSIS PATIENTS. Specimen slightly ictericU/S, ABDOMINAL, [id number] 23:49:00Abdomen limited area? Add comment if clarification [...] by ultrasound.Large abdominal ascites. Signed : Aba Auguste MDReport Verified Date/Time: 08/25/2018 23:49:36 Reading Location: [facility] C0[facility] CT Body Reading Room POCT-GLUCOSE [id number] 23:16:00 Test Item Value Reference Range Comments POC-GLUCOSE METER (BEAKER) 89 mg/dL 70-110 TESTED AT [facility] [address] [place] [address] (test vzrc=1182) [facility] [address] COMPREHENSIVE METABOLIC [id number] 21:15:00 Test Item Value Reference Range Comments TOTAL PROTEIN (BEAKER) 5.4 gm/dL 6.0-8.3 (test ldha=182) ALBUMIN (BEAKER) (test 3.1 g/dL 3.5-5.0 apcr=3487) ALKALINE PHOSPHATASE 164 U/L 40-150 (BEAKER) (test lpsk=470) BILIRUBIN TOTAL (BEAKER) 3.1 mg/dL 0.2-1.2 (test ehys=474) SODIUM (BEAKER) (test 116 meq/L 136-145 opde=330) POTASSIUM (BEAKER) (test 5.0 meq/L 3.5-5.1 uapa=975) CHLORIDE (BEAKER) (test 87 meq/L 98-107 kfhd=008) CO2 (BEAKER) (test 22 meq/L 22-29 mpnk=547) BLOOD UREA NITROGEN 38 mg/dL 7-21 (BEAKER) (test yazo=249) CREATININE (BEAKER) (test 1.52 mg/dL 0.57-1.25 yqlr=888) GLUCOSE RANDOM (BEAKER) 67 mg/dL 70-105 (test yvpl=595) CALCIUM (BEAKER) (test 9.1 mg/dL 8.4-10.2 rcwy=204) AST (SGOT) (BEAKER) (test 30 U/L 5-34 irhr=841) ALT (SGPT) (BEAKER) (test 10 U/L 6-55 hbxr=447) EGFR (BEAKER) (test 48 mL/min/1.73 sq m ESTIMATED GFR IS NOT mycn=1816) ACCURATE CREATININE CLEARANCE IN PREDICTING GLOMERULAR FILTRATION RATE. ESTIMATED GFR IS NOT APPLICABLE FOR DIALYSIS PATIENTS. Recheck and call Dr. Solorio with results [phone] [facility] ictericBASIC METABOLIC [id number] 17:36:00 Test Item Value Reference Range Comments SODIUM (BEAKER) (test 119 meq/L 136-145 oqdw=165) POTASSIUM (BEAKER) (test 5.0 meq/L 3.5-5.1 ourk=723) CHLORIDE (BEAKER) (test 89 meq/L 98-107 fjrl=745) CO2 (BEAKER) (test 22 meq/L 22-29 wqni=314) BLOOD UREA NITROGEN 38 mg/dL 7-21 (BEAKER) (test nekv=950) CREATININE (BEAKER) (test 1.50 mg/dL 0.57-1.25 tvrf=665) GLUCOSE RANDOM (BEAKER) 70 mg/dL 70-105 (test yurh=318) CALCIUM (BEAKER) (test 8.9 mg/dL 8.4-10.2 qboq=050) EGFR (BEAKER) (test 49 mL/min/1.73 sq m ESTIMATED GFR IS NOT qehq=3500) ACCURATE CREATININE CLEARANCE IN PREDICTING GLOMERULAR FILTRATION RATE. ESTIMATED GFR IS NOT APPLICABLE FOR DIALYSIS PATIENTS. Specimen slightly ictericCT, CHEST, WITH HIGH RESOLUTION, INTERSTITAL LUNG [id number] 17:36:00Reason for exam:->follow up for lung noduleFINAL [...] MDReport Verified Date/Time: 08/25/2018 17:36:51 Reading Location: [address] Body Reading Room CT, SPINE, LUMBAR, WO [id number] 17:06:00FINAL REPORT CT thoracic and lumbar spine [...] MDReport Verified Date/Time: 08/25/2018 17:06:21 Reading Location: [facility] Reading Room CT, SPINE, THORACIC, WO [id number] 17:06:00FINAL REPORT CT thoracic and lumbar spine [...] 2. Nonskeletal findings as discussed. Signed: Chase Baineport Verified Date/Time: 08/25/2018 17: 06:21 Reading Location: [facility] Reading Room EOSINOPHIL SMEAR, [id number] 16:40:00 Test Item Value Reference Range Comments EOSINOPHIL SMEAR, URINE (BEAKER) (test No EOS seen No EOS seen eabl=0364) SODIUM, RANDOM [id number] 15:13:00 Test Item Value Reference Range Comments SODIUM URINE (BEAKER) (test oezx=748) < meq/L Reference Range: No NormalsCOMPREHENSIVE METABOLIC [id number] 15:12:00 Test Item Value Reference Range Comments TOTAL PROTEIN (BEAKER) 5.0 gm/dL 6.0-8.3 (test qiqa=024) ALBUMIN (BEAKER) (test 2.9 g/dL 3.5-5.0 hyvp=0308) ALKALINE PHOSPHATASE 154 U/L 40-150 (BEAKER) (test numi=118) BILIRUBIN TOTAL (BEAKER) 3.1 mg/dL 0.2-1.2 (test mbzz=202) SODIUM (BEAKER) (test 116 meq/L 136-145 yfym=238) POTASSIUM (BEAKER) (test 4.8 meq/L 3.5-5.1 udzi=699) CHLORIDE (BEAKER) (test 87 meq/L 98-107 dpxl=330) CO2 (BEAKER) (test 24 meq/L 22-29 urui=847) BLOOD UREA NITROGEN 39 mg/dL 7-21 (BEAKER) (test nzro=261) CREATININE (BEAKER) (test 1.53 mg/dL 0.57-1.25 umih=886) GLUCOSE RANDOM (BEAKER) 67 mg/dL 70-105 (test kvob=429) CALCIUM (BEAKER) (test 8.6 mg/dL 8.4-10.2 tluy=111) AST (SGOT) (BEAKER) (test 24 U/L 5-34 xhsq=437) ALT (SGPT) (BEAKER) (test 11 U/L 6-55 ndsj=149) EGFR (BEAKER) (test 48 mL/min/1.73 sq m ESTIMATED GFR IS NOT xkaj=7619) ACCURATE CREATININE CLEARANCE IN PREDICTING GLOMERULAR FILTRATION RATE. ESTIMATED GFR IS NOT APPLICABLE FOR DIALYSIS PATIENTS. Specimen slightly ictericPROTEIN, RANDOM [id number] 15:12:00 Test Item Value Reference Range Comments PROTEIN, URINE (BEAKER) (test jskv=8785) < mg/dL 0-14 CREATININE, RANDOM [id number] 15:10:00 Test Item Value Reference Range Comments CREATININE URINE (BEAKER) (test jzxq=190) 75.0 mg/dL Reference Range: No NormalsURINALYSIS W/ [id number] 14:55:00 Test Item Value Reference Range Comments COLOR (BEAKER) (test pumo=077) Yellow CLARITY (BEAKER) (test rigl=635) Hazy SPECIFIC GRAVITY UA (BEAKER) (test cbab=982) 1.009 1.001-1.035 PH UA (BEAKER) (test pikh=472) 5.5 5.0-8.0 PROTEIN UA (BEAKER) (test fngk=579) Negative Negative GLUCOSE UA (BEAKER) (test rkhx=608) Negative Negative KETONES UA (BEAKER) (test cngg=970) Negative Negative BILIRUBIN UA (BEAKER) (test cvpm=788) Negative Negative BLOOD UA (BEAKER) (test rzbr=495) Small Negative NITRITE UA (BEAKER) (test xkhb=188) Negative Negative LEUKOCYTE ESTERASE UA (BEAKER) (test xfol=181) Negative Negative UROBILINOGEN UA (BEAKER) (test maui=042) 0.2 mg/dL 0.2-1.0 RBC UA (BEAKER) (test veqa=075) 20 /HPF WBC UA (BEAKER) (test bnar=603) 27 /HPF SQUAMOUS EPITHELIAL (BEAKER) (test kksb=639) 18 /HPF SOURCE(BEAKER) (test yhjr=4900) URINALYSIS W/ REFLEX URINE [id number] 14:47:00 Test Item Value Reference Range Comments COLOR (BEAKER) (test hrdw=339) Yellow CLARITY (BEAKER) (test dead=559) Hazy SPECIFIC GRAVITY UA (BEAKER) (test iumj=040) 1.010 1.001-1.035 PH UA (BEAKER) (test gcsh=196) 5.5 5.0-8.0 PROTEIN UA (BEAKER) (test ejkb=342) Negative Negative GLUCOSE UA (BEAKER) (test xtjf=265) Negative Negative KETONES UA (BEAKER) (test jfcz=977) Negative Negative BILIRUBIN UA (BEAKER) (test ytxn=758) Negative Negative BLOOD UA (BEAKER) (test uwgp=554) Small Negative NITRITE UA (BEAKER) (test wdfo=802) Negative Negative LEUKOCYTE ESTERASE UA (BEAKER) (test tddn=901) Negative Negative UROBILINOGEN UA (BEAKER) (test pned=984) 0.2 mg/dL 0.2-1.0 RBC UA (BEAKER) (test hoxb=241) 38 /HPF WBC UA (BEAKER) (test ixie=810) 7 /HPF SQUAMOUS EPITHELIAL (BEAKER) (test zyhr=364) 18 /HPF AMORPHOUS CRYSTALS (BEAKER) (test csar=1859) Rare SOURCE(BEAKER) (test pfys=6940) OSMOLALITY, [id number] 14:40:00 Test Item Value Reference Range Comments OSMOLALITY URINE (BEAKER) (test jvar=624) 284 mOsm/kg 40-1,400 [id number] 13:34:00 Test Item Value Reference Range Comments PROCALCITONIN (BEAKER) (test giyd=2181) 0.25 ng/mL <0.05 SEPSIS RISK (ng/mL)Low: 0.05-0.50Intermediate: 0.51-2.00High: & gt;=2.01OSMOLALITY, [id number] 12:43:00 Test Item Value Reference Range Comments OSMOLALITY URINE (BEAKER) (test gbxx=443) 316 mOsm/kg 40-1,400 OSMOLALITY, [id number] 12:41:00 Test Item Value Reference Range Comments OSMOLALITY, SERUM (BEAKER) (test dhxz=317) 259 mOsm/kg 275-295 TSH/FREE T4 IF [id number] 11:36:00 Test Item Value Reference Range Comments THYROID STIMULATING HORMONE (BEAKER) (test 2.55 uIU/mL 0.35-4.94 yxsp=135) [id number] 11:34:00 Test Item Value Reference Range Comments CORTISOL, TOTAL (BEAKER) (test ualp=6549) 7.9 ug/dL 3.7-19.4 SODIUM, RANDOM [id number] 11:34:00 Test Item Value Reference Range Comments SODIUM URINE (BEAKER) (test hbxy=393) < meq/L Reference Range: No NormalsBASIC METABOLIC [id number] 11:24:00 Test Item Value Reference Range Comments SODIUM (BEAKER) (test 113 meq/L 136-145 tzsl=970) POTASSIUM (BEAKER) (test 5.3 meq/L 3.5-5.1 cnsw=794) CHLORIDE (BEAKER) (test 86 meq/L 98-107 aeya=799) CO2 (BEAKER) (test 21 meq/L 22-29 kcgi=642) BLOOD UREA NITROGEN 39 mg/dL 7-21 (BEAKER) (test lycb=373) CREATININE (BEAKER) (test 1.57 mg/dL 0.57-1.25 yqyb=394) GLUCOSE RANDOM (BEAKER) 64 mg/dL 70-105 (test xidp=990) CALCIUM (BEAKER) (test 9.1 mg/dL 8.4-10.2 mxgz=379) EGFR (BEAKER) (test 46 mL/min/1.73 sq m ESTIMATED GFR IS NOT ihar=5779) ACCURATE CREATININE CLEARANCE IN PREDICTING GLOMERULAR FILTRATION RATE. ESTIMATED GFR IS NOT APPLICABLE FOR DIALYSIS PATIENTS. Specimen slightly ictericURIC [id number] 11:21:00 Test Item Value Reference Range Comments URIC ACID (BEAKER) (test vmhz=851) 8.2 mg/dL 2.6-7.2 Specimen slightly ictericCREATININE, RANDOM [id number] 11:21:00 Test Item Value Reference Range Comments CREATININE URINE (BEAKER) (test myoq=949) 81.9 mg/dL Reference Range: No NormalsPOTASSIUM, RANDOM [id number] 11:21:00 Test Item Value Reference Range Comments POTASSIUM URINE (BEAKER) (test vwhs=433) 19.2 meq/L Reference Range: No NormalsCBC W/PLT COUNT & AUTO [id number] 10: 20:00 Test Item Value Reference Range Comments WHITE BLOOD CELL COUNT (BEAKER) (test aduq=362) 10.9 K/ L 3.5-10.5 RED BLOOD CELL COUNT (BEAKER) (test ksrs=441) 2.46 M/ L 4.63-6.08 HEMOGLOBIN (BEAKER) (test awgc=861) 7.9 GM/DL 13.7-17.5 HEMATOCRIT (BEAKER) (test zcve=016) 22.2 % 40.1-51.0 MEAN CORPUSCULAR VOLUME (BEAKER) (test xoxt=198) 90.2 fL 79.0-92.2 MEAN CORPUSCULAR HEMOGLOBIN (BEAKER) (test 32.1 pg 25.7-32.2 oroe=245) MEAN CORPUSCULAR HEMOGLOBIN CONC (BEAKER) (test 35.6 GM/DL 32.3-36.5 inqz=886) RED CELL DISTRIBUTION WIDTH (BEAKER) (test 14.2 % 11.6-14.4 tihs=782) PLATELET COUNT (BEAKER) (test twag=897) 82 K/CU MM 150-450 MEAN PLATELET VOLUME (BEAKER) (test rjpq=544) 8.3 fL 9.4-12.4 NUCLEATED RED BLOOD CELLS (BEAKER) (test 0 /100 WBC 0-0 cphp=291) (CELLAVISION MANUAL DIFF)[id number] 10:20:00 Test Item Value Reference Range Comments NEUTROPHILS - REL (CELLAVISION)(BEAKER) (test 80 % uqlt=0966) LYMPHOCYTES - REL (CELLAVISION)(BEAKER) (test 2 % jvwn=7639) MONOCYTES - REL (CELLAVISION)(BEAKER) (test 6 % tsub=4889) BANDS - REL (CELLAVISION)(BEAKER) (test 12 % 0-10 vgin=6517) NEUTROPHILS - ABS (CELLAVISION)(BEAKER) (test 8.72 K/ul 1.78-5.38 tuxh=7247) LYMPHOCYTES - ABS (CELLAVISION)(BEAKER) (test 0.22 K/ul 1.32-3.57 oduu=1146) MONOCYTES - ABS (CELLAVISION)(BEAKER) (test 0.65 K/uL 0.30-0.82 pstf=7736) BANDS - ABS (CELLAVISION)(BEAKER) (test 1.31 K/uL 0.00-0.80 ejre=8433) TOTAL COUNTED (BEAKER) (test hewu=6366) 100 WBC MORPHOLOGY (BEAKER) (test eqah=990) Normal PLT MORPHOLOGY (BEAKER) (test epwi=531) Normal POLYCHROMATOPHILLIC RBCS(BEAKER) (test srbx=660) 2+ moderate ANISOCYTOSIS (BEAKER) (test sfqt=022) 2+ moderate POIKILOCYTES (BEAKER) (test fcxd=726) 2+ moderate ARTIFACT (CELLAVISION)(BEAKER) (test gdqc=8013) Present PLATELET CONCENTRATION (CELLAVISION)(BEAKER) Decreased (test ucas=1410) Received comment: User comments: Slide comments:COMPREHENSIVE METABOLIC [id number] 09:30:00 Test Item Value Reference Range Comments TOTAL PROTEIN (BEAKER) 5.2 gm/dL 6.0-8.3 (test eijq=499) ALBUMIN (BEAKER) (test 3.0 g/dL 3.5-5.0 fwfq=9768) ALKALINE PHOSPHATASE 158 U/L 40-150 (BEAKER) (test bxmf=667) BILIRUBIN TOTAL (BEAKER) 2.9 mg/dL 0.2-1.2 (test msoh=309) SODIUM (BEAKER) (test 111 meq/L 136-145 zvpl=567) POTASSIUM (BEAKER) (test 5.5 meq/L 3.5-5.1 dzoc=224) CHLORIDE (BEAKER) (test 87 meq/L 98-107 uhty=486) CO2 (BEAKER) (test 20 meq/L 22-29 nocz=626) BLOOD UREA NITROGEN 39 mg/dL 7-21 (BEAKER) (test ivlq=422) CREATININE (BEAKER) (test 1.55 mg/dL 0.57-1.25 curf=962) GLUCOSE RANDOM (BEAKER) 79 mg/dL 70-105 (test fxon=636) CALCIUM (BEAKER) (test 9.0 mg/dL 8.4-10.2 wmgg=917) AST (SGOT) (BEAKER) (test 27 U/L 5-34 jkyw=412) ALT (SGPT) (BEAKER) (test 9 U/L 6-55 qbmb=911) EGFR (BEAKER) (test 47 mL/min/1.73 sq m ESTIMATED GFR IS NOT nshr=3693) ACCURATE CREATININE CLEARANCE IN PREDICTING GLOMERULAR FILTRATION RATE. ESTIMATED GFR IS NOT APPLICABLE FOR DIALYSIS PATIENTS. Specimen slightly ictericLACTIC ACID, VENOUS, WHOLE [id number] 09:15:00 Test Item Value Reference Range Comments LACTATE BLOOD VENOUS (2) (BEAKER) (test 0.9 mmol/L 0.5-2.2 xzaj=3797) Effective 02/28/2016: Units/Reference Range ChangeNew: 0.5-2.2 mmol/L Previous: 5 -20 mg/dLSpecimen slightly [id number] 09:01:00 Test Item Value Reference Range Comments AMMONIA (BEAKER) (test oslj=692) 83 mol/L 18-72 PT/[id number] 08:54:00 Test Item Value Reference Range Comments PROTIME (BEAKER) (test sdwt=148) 21.4 seconds 11.7-14.7 INR (BEAKER) (test dtvo=681) 1.9 <=5.9 PARTIAL THROMBOPLASTIN TIME (BEAKER) (test 44.2 seconds 22.5-36.0 pmis=899) RECOMMENDED COUMADIN/WARFARIN INR THERAPY RANGESSTANDARD DOSE: 2.0 - 3.0 Includes: PROPHYLAXIS forvenous thrombosis, systemic embolization; TREATMENT for venous thrombosis and/or pulmonary embolus.HIGH RISK: Target INR is 2.5-3.5 for patients with mechanical heart valves.PROTHROMBIN TIME/[id number] 08:53: 00 Test Item Value Reference Range Comments PROTIME (BEAKER) (test exas=102) 21.4 seconds 11.7-14.7 INR (BEAKER) (test lvqr=676) 1.9 <=5.9 RECOMMENDED COUMADIN/WARFARIN INR THERAPY RANGESSTANDARD DOSE: 2.0 - 3.0 Includes: PROPHYLAXIS forvenous thrombosis, systemic embolization; TREATMENT for venous thrombosis and/or pulmonary embolus.HIGH RISK: Target INR is 2.5-3.5 for patients with mechanical heart valves.COMPREHENSIVE METABOLIC [id number] 13:54:00 Test Item Value Reference Range Comments TOTAL PROTEIN (BEAKER) 6.2 gm/dL 6.0-8.3 (test yysm=891) ALBUMIN (BEAKER) (test 3.4 g/dL 3.5-5.0 eolr=0691) ALKALINE PHOSPHATASE 190 U/L 40-150 (BEAKER) (test viuq=332) BILIRUBIN TOTAL (BEAKER) 1.9 mg/dL 0.2-1.2 (test ugac=775) SODIUM (BEAKER) (test 125 meq/L 136-145 ifyw=441) POTASSIUM (BEAKER) (test 5.0 meq/L 3.5-5.1 sffv=240) CHLORIDE (BEAKER) (test 99 meq/L 98-107 rqug=598) CO2 (BEAKER) (test 19 meq/L 22-29 cpym=426) BLOOD UREA NITROGEN 36 mg/dL 7-21 (BEAKER) (test lbsw=629) CREATININE (BEAKER) (test 1.65 mg/dL 0.57-1.25 wqac=316) GLUCOSE RANDOM (BEAKER) 133 mg/dL 70-105 (test amgz=054) CALCIUM (BEAKER) (test 9.5 mg/dL 8.4-10.2 zwcq=372) AST (SGOT) (BEAKER) (test 23 U/L 5-34 mslm=665) ALT (SGPT) (BEAKER) (test 12 U/L 6-55 oyhc=830) EGFR (BEAKER) (test 44 mL/min/1.73 sq m ESTIMATED GFR IS NOT tdew=8360) ACCURATE CREATININE CLEARANCE IN PREDICTING GLOMERULAR FILTRATION RATE. ESTIMATED GFR IS NOT APPLICABLE FOR DIALYSIS PATIENTS. BILIRUBIN, [id number] 13:54:00 Test Item Value Reference Range Comments BILIRUBIN DIRECT (BEAKER) (test npxq=908) 1.4 mg/dL 0.1-0.5 CBC W/PLT COUNT & AUTO [id number] 13:50:00 Test Item Value Reference Range Comments WHITE BLOOD CELL COUNT (BEAKER) (test pvuq=570) 6.8 K/ L 3.5-10.5 RED BLOOD CELL COUNT (BEAKER) (test urtz=503) 3.01 M/ L 4.63-6.08 HEMOGLOBIN (BEAKER) (test mmtj=528) 9.5 GM/DL 13.7-17.5 HEMATOCRIT (BEAKER) (test fllm=070) 28.3 % 40.1-51.0 MEAN CORPUSCULAR VOLUME (BEAKER) (test vncm=018) 94.0 fL 79.0-92.2 MEAN CORPUSCULAR HEMOGLOBIN (BEAKER) (test 31.6 pg 25.7-32.2 clro=035) MEAN CORPUSCULAR HEMOGLOBIN CONC (BEAKER) (test 33.6 GM/DL 32.3-36.5 oyrv=947) RED CELL DISTRIBUTION WIDTH (BEAKER) (test 14.5 % 11.6-14.4 gmyp=164) PLATELET COUNT (BEAKER) (test cltu=525) 131 K/CU MM 150-450 MEAN PLATELET VOLUME (BEAKER) (test akox=339) 9.0 fL 9.4-12.4 NUCLEATED RED BLOOD CELLS (BEAKER) (test 0 /100 WBC 0-0 kovi=348) NEUTROPHILS RELATIVE PERCENT (BEAKER) (test 75 % xzdn=023) LYMPHOCYTES RELATIVE PERCENT (BEAKER) (test 7 % xzpa=332) MONOCYTES RELATIVE PERCENT (BEAKER) (test 14 % uyoe=504) EOSINOPHILS RELATIVE PERCENT (BEAKER) (test 2 % woxd=380) BASOPHILS RELATIVE PERCENT (BEAKER) (test 0 % vcww=309) NEUTROPHILS ABSOLUTE COUNT (BEAKER) (test 5.11 K/ L 1.78-5.38 umaa=620) LYMPHOCYTES ABSOLUTE COUNT (BEAKER) (test 0.50 K/ L 1.32-3.57 ufpx=882) MONOCYTES ABSOLUTE COUNT (BEAKER) (test 0.94 K/ L 0.30-0.82 ecxc=150) EOSINOPHILS ABSOLUTE COUNT (BEAKER) (test 0.12 K/ L 0.04-0.54 vivx=113) BASOPHILS ABSOLUTE COUNT (BEAKER) (test 0.03 K/ L 0.01-0.08 ervf=348) IMMATURE GRANULOCYTES-RELATIVE PERCENT (BEAKER) 1 % 0-1 (test ghcs=9704) PROTHROMBIN [id number] 13:46:00 Test Item Value Reference Range Comments PROTIME (BEAKER) (test cfmc=151) 19.5 seconds 11.7-14.7 INR (TUNG) (test xjhe=467) 1.7 <=5.9 RECOMMENDED COUMADIN/WARFARIN INR THERAPY RANGESSTANDARD DOSE: 2.0 - 3.0 Includes: PROPHYLAXIS forvenous thrombosis, systemic embolization; TREATMENT for venous thrombosis and/or pulmonary embolus.HIGH RISK: Target INR is 2.5-3.5 for patients with mechanical heart valves.BONE AND/OR JOINT IMAGING, WHOLE [id number] 16:45:00FINAL REPORT PROCEDURE: BONE SCAN, WHOLE BODY CPT CODE: [id number] INDICATION: L3 vertebral body lesion follow-up R91.1 [...] Verified Date/ Time: 08/05/2018 16:45:34 Reading Location: [address] Reading Room NIR, VERTEBROPLASTY THORACIC, [id number] 17:23:00Reason for exam:->T11, T12, L2 compression fracturesAddendum [...] Verified Date/Time: 06/04/2018 17:23:27 Reading Location : [address] Radiology Reading RoomAddendum EndsFINAL REPORT HISTORY: [...] as (Ka,r): 1550 mGy Signed: Karina Rain Verified Date/Time: 06/03/2018 17:56:43 Reading Location : [place] [address] Angio Body Reading Room ALPHA FETOPROTEIN (AFP), TUMOR [id number] 15:20:00 Test Item Value Reference Range Comments ALPHA-FETOPROTEIN (BEAKER) (test xphw=0398) 2.2 ng/mL <10.0 COMPREHENSIVE METABOLIC [id number] 14:54:00 Test Item Value Reference Range Comments TOTAL PROTEIN (BEAKER) 6.5 gm/dL 6.0-8.3 (test cfwk=616) ALBUMIN (BEAKER) (test 3.6 g/dL 3.5-5.0 enij=8908) ALKALINE PHOSPHATASE 342 U/L 40-150 (BEAKER) (test oars=911) BILIRUBIN TOTAL (BEAKER) 4.2 mg/dL 0.2-1.2 (test rzdx=347) SODIUM (BEAKER) (test 128 meq/L 136-145 vctq=918) POTASSIUM (BEAKER) (test 4.6 meq/L 3.5-5.1 ntmn=528) CHLORIDE (BEAKER) (test 100 meq/L 98-107 rbfp=487) CO2 (BEAKER) (test 21 meq/L 22-29 rbpl=893) BLOOD UREA NITROGEN 21 mg/dL 7-21 (BEAKER) (test wtio=612) CREATININE (BEAKER) (test 1.37 mg/dL 0.57-1.25 ebyt=222) GLUCOSE RANDOM (BEAKER) 108 mg/dL 70-105 (test dtdf=705) CALCIUM (BEAKER) (test 9.5 mg/dL 8.4-10.2 lelv=546) AST (SGOT) (BEAKER) (test 25 U/L 5-34 rpnv=440) ALT (SGPT) (BEAKER) (test 10 U/L 6-55 iyiv=647) EGFR (BEAKER) (test 54 mL/min/1.73 sq m ESTIMATED GFR IS NOT fwoe=2741) ACCURATE CREATININE CLEARANCE IN PREDICTING GLOMERULAR FILTRATION RATE. ESTIMATED GFR IS NOT APPLICABLE FOR DIALYSIS PATIENTS. Specimen slightly ictericBILIRUBIN, [id number] 14:54:00 Test Item Value Reference Range Comments BILIRUBIN DIRECT (BEAKER) (test djwg=824) 2.1 mg/dL 0.1-0.5 CBC W/PLT COUNT & AUTO [id number] 14:52:00 Test Item Value Reference Range Comments WHITE BLOOD CELL COUNT (BEAKER) (test dxim=144) 3.9 K/ L 3.5-10.5 RED BLOOD CELL COUNT (BEAKER) (test xoik=881) 2.69 M/ L 4.63-6.08 HEMOGLOBIN (BEAKER) (test ukrq=732) 9.1 GM/DL 13.7-17.5 HEMATOCRIT (BEAKER) (test dswl=062) 27.3 % 40.1-51.0 MEAN CORPUSCULAR VOLUME (BEAKER) (test kmnu=324) 101.5 fL 79.0-92.2 MEAN CORPUSCULAR HEMOGLOBIN (BEAKER) (test 33.8 pg 25.7-32.2 krxk=769) MEAN CORPUSCULAR HEMOGLOBIN CONC (BEAKER) (test 33.3 GM/DL 32.3-36.5 sxbc=339) RED CELL DISTRIBUTION WIDTH (BEAKER) (test 18.6 % 11.6-14.4 ojqz=807) PLATELET COUNT (BEAKER) (test pohr=161) 71 K/CU MM 150-450 MEAN PLATELET VOLUME (BEAKER) (test gjgz=837) 9.6 fL 9.4-12.4 NUCLEATED RED BLOOD CELLS (BEAKER) (test 0 /100 WBC 0-0 zjsc=190) NEUTROPHILS RELATIVE PERCENT (BEAKER) (test 62 % ugit=703) LYMPHOCYTES RELATIVE PERCENT (BEAKER) (test 16 % qmhj=281) MONOCYTES RELATIVE PERCENT (BEAKER) (test 17 % mexx=531) EOSINOPHILS RELATIVE PERCENT (BEAKER) (test 5 % cvbm=919) BASOPHILS RELATIVE PERCENT (BEAKER) (test 0 % uztj=398) NEUTROPHILS ABSOLUTE COUNT (BEAKER) (test 2.41 K/ L 1.78-5.38 krgx=100) LYMPHOCYTES ABSOLUTE COUNT (BEAKER) (test 0.62 K/ L 1.32-3.57 iyhi=635) MONOCYTES ABSOLUTE COUNT (BEAKER) (test igjs=198) 0.65 K/ L 0.30-0.82 EOSINOPHILS ABSOLUTE COUNT (BEAKER) (test 0.20 K/ L 0.04-0.54 nzcp=523) BASOPHILS ABSOLUTE COUNT (BEAKER) (test tugr=267) 0.01 K/ L 0.01-0.08 IMMATURE GRANULOCYTES-RELATIVE PERCENT (BEAKER) 0 % 0-1 (test hnzc=3924) PROTHROMBIN [id number] 14:50:00 Test Item Value Reference Range Comments PROTIME (BEAKER) (test vhpm=645) 19.5 seconds 11.7-14.7 INR (BEAKER) (test psor=564) 1.7 <=5.9 RECOMMENDED COUMADIN/WARFARIN INR THERAPY RANGESSTANDARD DOSE: 2.0 - 3.0 Includes: PROPHYLAXIS forvenous thrombosis, systemic embolization; TREATMENT for venous thrombosis and/or pulmonary embolus.HIGH RISK: Target INR is 2.5-3.5 for patients with mechanical heart valves.BODY FLUID CULTURE + GRAM [id number] 13:19:00 Test Item Value Reference Range Comments CULTURE (BEAKER) (test xnnz=0859) No growth GRAM STAIN RESULT (BEAKER) (test No WBCs tpmx=0770) GRAM STAIN RESULT (BEAKER) (test No organisms seen ajvr=48326) [id number] 17:36:00 Test Item Value Reference Range Comments SODIUM (BEAKER) (test qzli=821) 133 meq/L 136-145 POTASSIUM (BEAKER) (test edin=972) 3.2 meq/L 3.5-5.1 CHLORIDE (BEAKER) (test amrw=276) 102 meq/L 98-107 CO2 (BEAKER) (test flbz=176) 21 meq/L 22-29 [id number] 13:21:00 Test Item Value Reference Range Comments SODIUM (BEAKER) (test itcx=674) 134 meq/L 136-145 POTASSIUM (BEAKER) (test rumx=335) 3.0 meq/L 3.5-5.1 CHLORIDE (BEAKER) (test mwdm=357) 103 meq/L 98-107 CO2 (BEAKER) (test buvm=296) 22 meq/L 22-29 CALCIUM, [id number] 04:54:00 Test Item Value Reference Range Comments CALCIUM IONIZED (BEAKER) (test vhsq=855) 1.09 mmol/L 1.12-1.27 PH, BLOOD (BEAKER) (test siew=0566) 7.35 [id number] 04:04:00 Test Item Value Reference Range Comments PHOSPHORUS (BEAKER) (test agjj=107) 2.4 mg/dL 2.3-4.7 [id number] 04:04:00 Test Item Value Reference Range Comments MAGNESIUM (BEAKER) (test erid=764) 2.0 mg/dL 1.6-2.6 HEPATIC FUNCTION [id number] 04:04:00 Test Item Value Reference Range Comments TOTAL PROTEIN (BEAKER) (test utyr=481) 5.8 gm/dL 6.0-8.3 ALBUMIN (BEAKER) (test mmjh=9265) 4.1 g/dL 3.5-5.0 BILIRUBIN TOTAL (BEAKER) (test kopr=038) 3.9 mg/dL 0.2-1.2 BILIRUBIN DIRECT (BEAKER) (test yxuq=891) 2.0 mg/dL 0.1-0.5 ALKALINE PHOSPHATASE (BEAKER) (test ljhb=839) 123 U/L 40-150 AST (SGOT) (BEAKER) (test nctd=714) 14 U/L 5-34 ALT (SGPT) (BEAKER) (test ldyg=272) < U/L 6-55 Specimen slightly ictericCOMPREHENSIVE METABOLIC [id number] 04:04:00 Test Item Value Reference Range Comments TOTAL PROTEIN (BEAKER) 5.8 gm/dL 6.0-8.3 (test qidm=315) ALBUMIN (BEAKER) (test 4.1 g/dL 3.5-5.0 thko=7960) ALKALINE PHOSPHATASE 123 U/L 40-150 (BEAKER) (test freh=942) BILIRUBIN TOTAL (BEAKER) 3.9 mg/dL 0.2-1.2 (test ebui=993) SODIUM (BEAKER) (test 135 meq/L 136-145 bxcx=800) POTASSIUM (BEAKER) (test 2.9 meq/L 3.5-5.1 lbcz=584) CHLORIDE (BEAKER) (test 103 meq/L 98-107 pqqz=366) CO2 (BEAKER) (test 21 meq/L 22-29 pfuj=874) BLOOD UREA NITROGEN 18 mg/dL 7-21 (BEAKER) (test cjpj=748) CREATININE (BEAKER) (test 1.32 mg/dL 0.57-1.25 kmuu=275) GLUCOSE RANDOM (BEAKER) 126 mg/dL 70-105 (test tsnl=599) CALCIUM (BEAKER) (test 9.8 mg/dL 8.4-10.2 bpgc=465) AST (SGOT) (BEAKER) (test 14 U/L 5-34 fezw=059) ALT (SGPT) (BEAKER) (test < U/L 6-55 dhst=488) EGFR (BEAKER) (test 57 mL/min/1.73 sq m ESTIMATED GFR IS NOT iioj=8092) ACCURATE CREATININE CLEARANCE IN PREDICTING GLOMERULAR FILTRATION RATE. ESTIMATED GFR IS NOT APPLICABLE FOR DIALYSIS PATIENTS. Specimen slightly ictericPROTHROMBIN [id number] 04:02:00 Test Item Value Reference Range Comments PROTIME (BEAKER) (test hgkw=531) 25.1 seconds 11.7-14.7 INR (BEAKER) (test nmkc=939) 2.3 <=5.9 RECOMMENDED COUMADIN/WARFARIN INR THERAPY RANGESSTANDARD DOSE: 2.0 - 3.0 Includes: PROPHYLAXIS forvenous thrombosis, systemic embolization; TREATMENT for venous thrombosis and/or pulmonary embolus.HIGH RISK: Target INR is 2.5-3.5 for patients with mechanical heart valves.CBC W/PLT COUNT & AUTO [id number] 03:55:00 Test Item Value Reference Range Comments WHITE BLOOD CELL COUNT (BEAKER) (test kfmu=533) 3.6 K/ L 3.5-10.5 RED BLOOD CELL COUNT (BEAKER) (test hazu=441) 2.48 M/ L 4.63-6.08 HEMOGLOBIN (BEAKER) (test dtnx=368) 7.9 GM/DL 13.7-17.5 HEMATOCRIT (BEAKER) (test stys=813) 23.7 % 40.1-51.0 MEAN CORPUSCULAR VOLUME (BEAKER) (test ocgf=340) 95.6 fL 79.0-92.2 MEAN CORPUSCULAR HEMOGLOBIN (BEAKER) (test 31.9 pg 25.7-32.2 moqw=907) MEAN CORPUSCULAR HEMOGLOBIN CONC (BEAKER) (test 33.3 GM/DL 32.3-36.5 bofo=101) RED CELL DISTRIBUTION WIDTH (BEAKER) (test 18.8 % 11.6-14.4 qdtq=161) PLATELET COUNT (BEAKER) (test jqgh=607) 38 K/CU MM 150-450 MEAN PLATELET VOLUME (BEAKER) (test lndj=210) 9.3 fL 9.4-12.4 NUCLEATED RED BLOOD CELLS (BEAKER) (test 0 /100 WBC 0-0 lwxr=917) NEUTROPHILS RELATIVE PERCENT (BEAKER) (test 57 % jlez=096) LYMPHOCYTES RELATIVE PERCENT (BEAKER) (test 15 % ghkt=271) MONOCYTES RELATIVE PERCENT (BEAKER) (test 22 % ztpq=747) EOSINOPHILS RELATIVE PERCENT (BEAKER) (test 4 % gxfi=986) BASOPHILS RELATIVE PERCENT (BEAKER) (test 0 % pnab=315) NEUTROPHILS ABSOLUTE COUNT (BEAKER) (test 2.09 K/ L 1.78-5.38 zcus=306) LYMPHOCYTES ABSOLUTE COUNT (BEAKER) (test 0.54 K/ L 1.32-3.57 eumd=432) MONOCYTES ABSOLUTE COUNT (BEAKER) (test fdtp=549) 0.81 K/ L 0.30-0.82 EOSINOPHILS ABSOLUTE COUNT (BEAKER) (test 0.15 K/ L 0.04-0.54 ojnl=707) BASOPHILS ABSOLUTE COUNT (BEAKER) (test sksj=097) 0.01 K/ L 0.01-0.08 IMMATURE GRANULOCYTES-RELATIVE PERCENT (BEAKER) 1 % 0-1 (test lhui=5900) [id number] 18:07:00 Test Item Value Reference Range Comments SODIUM (BEAKER) (test vcre=549) 132 meq/L 136-145 POTASSIUM (BEAKER) (test 2.9 meq/L 3.5-5.1 Specimen slightly hemolyzed ufsv=051) CHLORIDE (BEAKER) (test 101 meq/L 98-107 dzgu=747) CO2 (BEAKER) (test bjvq=280) 18 meq/L 22-29 LACTIC ACID, VENOUS, WHOLE [id number] 16:43:00 Test Item Value Reference Range Comments LACTATE BLOOD VENOUS (2) 1.6 mmol/L 0.5-2.2 Specimen slightly hemolyzed (BEAKER) (test zcoy=1396) Effective 02/28/2016: Units/Reference Range ChangeNew: 0.5-2.2 mmol/L Previous: 5 -20 mg/dLSpecimen slightly ictericBODY FLUID CULTURE + GRAM [id number] 12: 08:00 Test Item Value Reference Range Comments CULTURE (BEAKER) (test zxkd=3666) No growth GRAM STAIN RESULT (BEAKER) (test <1+ WBCs seyr=7371) GRAM STAIN RESULT (BEAKER) (test No organisms seen sgnf=29294) [id number] 08:10:00 Test Item Value Reference Range Comments PHOSPHORUS (BEAKER) (test lkba=344) 2.8 mg/dL 2.3-4.7 [id number] 08:10:00 Test Item Value Reference Range Comments MAGNESIUM (BEAKER) (test azbk=290) 2.2 mg/dL 1.6-2.6 COMPREHENSIVE METABOLIC [id number] 08:10:00 Test Item Value Reference Range Comments TOTAL PROTEIN (BEAKER) 6.2 gm/dL 6.0-8.3 (test xdma=584) ALBUMIN (BEAKER) (test 4.4 g/dL 3.5-5.0 lrhw=9112) ALKALINE PHOSPHATASE 121 U/L 40-150 (BEAKER) (test xxdj=777) BILIRUBIN TOTAL (BEAKER) 4.4 mg/dL 0.2-1.2 (test lsoj=624) SODIUM (BEAKER) (test 135 meq/L 136-145 vrzo=251) POTASSIUM (BEAKER) (test 2.8 meq/L 3.5-5.1 aotq=545) CHLORIDE (BEAKER) (test 102 meq/L 98-107 lgfg=027) CO2 (BEAKER) (test 21 meq/L 22-29 sxjo=557) BLOOD UREA NITROGEN 20 mg/dL 7-21 (BEAKER) (test iokn=131) CREATININE (BEAKER) (test 1.34 mg/dL 0.57-1.25 oamj=049) GLUCOSE RANDOM (BEAKER) 132 mg/dL 70-105 (test kqnh=147) CALCIUM (BEAKER) (test 10.0 mg/dL 8.4-10.2 dmxh=854) AST (SGOT) (BEAKER) (test 16 U/L 5-34 fcfl=565) ALT (SGPT) (BEAKER) (test 6 U/L 6-55 wzse=437) EGFR (BEAKER) (test 56 mL/min/1.73 sq m ESTIMATED GFR IS NOT faop=5630) ACCURATE CREATININE CLEARANCE IN PREDICTING GLOMERULAR FILTRATION RATE. ESTIMATED GFR IS NOT APPLICABLE FOR DIALYSIS PATIENTS. Specimen slightly ictericHEPATIC FUNCTION [id number] 08:10:00 Test Item Value Reference Range Comments TOTAL PROTEIN (BEAKER) (test wzyh=977) 6.2 gm/dL 6.0-8.3 ALBUMIN (BEAKER) (test rfmx=1460) 4.4 g/dL 3.5-5.0 BILIRUBIN TOTAL (BEAKER) (test lajy=730) 4.4 mg/dL 0.2-1.2 BILIRUBIN DIRECT (BEAKER) (test hghp=206) 1.9 mg/dL 0.1-0.5 ALKALINE PHOSPHATASE (BEAKER) (test wmpm=528) 121 U/L 40-150 AST (SGOT) (BEAKER) (test jrby=983) 16 U/L 5-34 ALT (SGPT) (BEAKER) (test ydjt=735) 6 U/L 6-55 Specimen slightly ictericCALCIUM, [id number] 07:20:00 Test Item Value Reference Range Comments CALCIUM IONIZED (BEAKER) (test hays=486) 1.01 mmol/L 1.12-1.27 PH, BLOOD (BEAKER) (test cbyw=9639) 7.49 CBC W/PLT COUNT & AUTO [id number] 06:59:00 Test Item Value Reference Range Comments WHITE BLOOD CELL COUNT (BEAKER) (test xgep=890) 4.1 K/ L 3.5-10.5 RED BLOOD CELL COUNT (BEAKER) (test wrlx=884) 2.62 M/ L 4.63-6.08 HEMOGLOBIN (BEAKER) (test knpi=939) 8.2 GM/DL 13.7-17.5 HEMATOCRIT (BEAKER) (test yvbw=309) 24.9 % 40.1-51.0 MEAN CORPUSCULAR VOLUME (BEAKER) (test aobw=269) 95.0 fL 79.0-92.2 MEAN CORPUSCULAR HEMOGLOBIN (BEAKER) (test 31.3 pg 25.7-32.2 hiho=722) MEAN CORPUSCULAR HEMOGLOBIN CONC (BEAKER) (test 32.9 GM/DL 32.3-36.5 coqn=920) RED CELL DISTRIBUTION WIDTH (BEAKER) (test 18.6 % 11.6-14.4 rhzh=366) PLATELET COUNT (BEAKER) (test anxo=405) 38 K/CU MM 150-450 MEAN PLATELET VOLUME (BEAKER) (test dhqh=741) 9.3 fL 9.4-12.4 NUCLEATED RED BLOOD CELLS (BEAKER) (test 0 /100 WBC 0-0 jbvr=360) NEUTROPHILS RELATIVE PERCENT (BEAKER) (test 66 % zqzs=563) LYMPHOCYTES RELATIVE PERCENT (BEAKER) (test 12 % pvji=690) MONOCYTES RELATIVE PERCENT (BEAKER) (test 18 % uqqu=109) EOSINOPHILS RELATIVE PERCENT (BEAKER) (test 3 % dqpk=980) BASOPHILS RELATIVE PERCENT (BEAKER) (test 1 % djez=985) NEUTROPHILS ABSOLUTE COUNT (BEAKER) (test 2.74 K/ L 1.78-5.38 kobz=590) LYMPHOCYTES ABSOLUTE COUNT (BEAKER) (test 0.49 K/ L 1.32-3.57 raer=607) MONOCYTES ABSOLUTE COUNT (BEAKER) (test hmjn=883) 0.75 K/ L 0.30-0.82 EOSINOPHILS ABSOLUTE COUNT (BEAKER) (test 0.11 K/ L 0.04-0.54 izxr=102) BASOPHILS ABSOLUTE COUNT (BEAKER) (test krqw=470) 0.02 K/ L 0.01-0.08 IMMATURE GRANULOCYTES-RELATIVE PERCENT (BEAKER) 1 % 0-1 (test wndx=4173) PROTHROMBIN [id number] 06:56:00 Test Item Value Reference Range Comments PROTIME (BEAKER) (test enqm=604) 24.5 seconds 11.7-14.7 INR (BEAKER) (test zffv=745) 2.2 <=5.9 RECOMMENDED COUMADIN/WARFARIN INR THERAPY RANGESSTANDARD DOSE: 2.0 - 3.0 Includes: PROPHYLAXIS forvenous thrombosis, systemic embolization; TREATMENT for venous thrombosis and/or pulmonary embolus.HIGH RISK: Target INR is 2.5-3.5 for patients with mechanical heart valves.BODY FLUID CELL COUNT WITH [id number] 18:36:00 Test Item Value Reference Range Comments APPEARANCE FLUID (BEAKER) (test lxte=756) Hazy Clear COLOR FLUID (BEAKER) (test ictr=296) Yellow Colorless, Straw RBC FLUID (BEAKER) (test ipde=879) 2000 /cu mm <=1 ADJUSTED WBC FLUID (BEAKER) (test qjzg=7025) 96 /cu mm <=5 LINING CELLS (BEAKER) (test gqzg=4120) 2 /cu mm <=1 NEUTROPHILS FLUID (BEAKER) (test phow=2149) 4 % LYMPHS FLUID (BEAKER) (test cwyj=733) 11 % MONO/MACROPHAGE FLUID (BEAKER) (test fetn=702) 85 % EOSINOPHILS FLUID (BEAKER) (test sbzb=379) 0 % BASO FLUID (BEAKER) (test akhg=569) 0 % CONTAINER BODY FLUID (BEAKER) (test rbpc=4178) EDTA Tube U/S, [id number] 12:49:00Limit to 4L due to AKIReason for exam:-> ascitesFINAL REPORT Indication: Ascites. Technique: Ultrasound guided paracentesis. Findings:Preliminary ultrasound confirms ascites. A safe window was identified in the midline (suprapubic). The procedure was explained to the patient and informed consent was signed. The skin was marked and prepped in standard sterile fashion. 2% lidocaine was used for local anesthesia. A 5 Thai needle catheter system was advanced into the peritoneal space. 3300 cc clear yellow fluid was taken off.Sample of the fluid was sent to the laboratory. Patient tolerated the procedure well. Impression: Ultrasound guided paracentesis. Signed: Aristeo Xiong [facility] Verified Date/ Time: 05/13/2018 12:49:12 Reading Location: [address] Ultrasound Reading Room 12: 49 PMCALCIUM, [id number] 05:29:00 Test Item Value Reference Range Comments CALCIUM IONIZED (BEAKER) (test ftir=170) 1.10 mmol/L 1.12-1.27 PH, BLOOD (BEAKER) (test vzuf=8217) 7.35 B-TYPE NATRIURETIC FACTOR (BNP)2018-05-13 04:48:00 Test Item Value Reference Range Comments B-TYPE NATRIURETIC PEPTIDE (BEAKER) (test 274 pg/mL 0-100 xmig=956) [id number] 04:44:00 Test Item Value Reference Range Comments PHOSPHORUS (BEAKER) (test ljok=452) 3.0 mg/dL 2.3-4.7 [id number] 04:44:00 Test Item Value Reference Range Comments MAGNESIUM (BEAKER) (test yitf=098) 2.0 mg/dL 1.6-2.6 COMPREHENSIVE METABOLIC [id number] 04:44:00 Test Item Value Reference Range Comments TOTAL PROTEIN (BEAKER) 6.2 gm/dL 6.0-8.3 (test yhqe=037) ALBUMIN (BEAKER) (test 4.3 g/dL 3.5-5.0 eubi=6011) ALKALINE PHOSPHATASE 134 U/L 40-150 (BEAKER) (test aciw=132) BILIRUBIN TOTAL (BEAKER) 4.4 mg/dL 0.2-1.2 (test lbsk=924) SODIUM (BEAKER) (test 131 meq/L 136-145 vurq=859) POTASSIUM (BEAKER) (test 3.7 meq/L 3.5-5.1 akby=907) CHLORIDE (BEAKER) (test 96 meq/L 98-107 cqxn=863) CO2 (BEAKER) (test 26 meq/L 22-29 doht=312) BLOOD UREA NITROGEN 20 mg/dL 7-21 (BEAKER) (test ijfy=651) CREATININE (BEAKER) (test 1.60 mg/dL 0.57-1.25 dmcp=087) GLUCOSE RANDOM (BEAKER) 149 mg/dL 70-105 (test pyco=034) CALCIUM (BEAKER) (test 10.0 mg/dL 8.4-10.2 ffur=957) AST (SGOT) (BEAKER) (test 18 U/L 5-34 smbe=847) ALT (SGPT) (BEAKER) (test 7 U/L 6-55 boxa=046) EGFR (BEAKER) (test 46 mL/min/1.73 sq m ESTIMATED GFR IS NOT plag=6484) ACCURATE CREATININE CLEARANCE IN PREDICTING GLOMERULAR FILTRATION RATE. ESTIMATED GFR IS NOT APPLICABLE FOR DIALYSIS PATIENTS. Specimen slightly ictericHEPATIC FUNCTION [id number] 04:44:00 Test Item Value Reference Range Comments TOTAL PROTEIN (BEAKER) (test jegk=003) 6.2 gm/dL 6.0-8.3 ALBUMIN (BEAKER) (test wbrt=0927) 4.3 g/dL 3.5-5.0 BILIRUBIN TOTAL (BEAKER) (test hddv=780) 4.4 mg/dL 0.2-1.2 BILIRUBIN DIRECT (BEAKER) (test zyxz=447) 2.4 mg/dL 0.1-0.5 ALKALINE PHOSPHATASE (BEAKER) (test imvi=966) 134 U/L 40-150 AST (SGOT) (BEAKER) (test xugx=270) 18 U/L 5-34 ALT (SGPT) (BEAKER) (test tgql=070) 7 U/L 6-55 Specimen slightly ictericPROTHROMBIN [id number] 04:30:00 Test Item Value Reference Range Comments PROTIME (BEAKER) (test gbhd=498) 23.8 seconds 11.7-14.7 INR (BEAKER) (test vyyi=120) 2.1 <=5.9 RECOMMENDED COUMADIN/WARFARIN INR THERAPY RANGESSTANDARD DOSE: 2.0 - 3.0 Includes: PROPHYLAXIS forvenous thrombosis, systemic embolization; TREATMENT for venous thrombosis and/or pulmonary embolus.HIGH RISK: Target INR is 2.5-3.5 for patients with mechanical heart valves.CBC W/PLT COUNT & AUTO [id number] 04:19:00 Test Item Value Reference Range Comments WHITE BLOOD CELL COUNT (BEAKER) (test nfxj=883) 4.0 K/ L 3.5-10.5 RED BLOOD CELL COUNT (BEAKER) (test edhy=663) 2.60 M/ L 4.63-6.08 HEMOGLOBIN (BEAKER) (test chfl=264) 8.2 GM/DL 13.7-17.5 HEMATOCRIT (BEAKER) (test mfpr=513) 24.6 % 40.1-51.0 MEAN CORPUSCULAR VOLUME (BEAKER) (test zmzj=526) 94.6 fL 79.0-92.2 MEAN CORPUSCULAR HEMOGLOBIN (BEAKER) (test 31.5 pg 25.7-32.2 jiem=539) MEAN CORPUSCULAR HEMOGLOBIN CONC (BEAKER) (test 33.3 GM/DL 32.3-36.5 hgym=039) RED CELL DISTRIBUTION WIDTH (BEAKER) (test 18.1 % 11.6-14.4 cqpj=978) PLATELET COUNT (BEAKER) (test nifm=344) 46 K/CU MM 150-450 MEAN PLATELET VOLUME (BEAKER) (test vnfr=783) 9.1 fL 9.4-12.4 NUCLEATED RED BLOOD CELLS (BEAKER) (test 0 /100 WBC 0-0 fkbn=700) NEUTROPHILS RELATIVE PERCENT (BEAKER) (test 62 % kzio=441) LYMPHOCYTES RELATIVE PERCENT (BEAKER) (test 13 % wnfw=742) MONOCYTES RELATIVE PERCENT (BEAKER) (test 21 % oljh=118) EOSINOPHILS RELATIVE PERCENT (BEAKER) (test 3 % mzju=494) BASOPHILS RELATIVE PERCENT (BEAKER) (test 0 % lsxh=482) NEUTROPHILS ABSOLUTE COUNT (BEAKER) (test 2.49 K/ L 1.78-5.38 fyxe=321) LYMPHOCYTES ABSOLUTE COUNT (BEAKER) (test 0.53 K/ L 1.32-3.57 xsay=310) MONOCYTES ABSOLUTE COUNT (BEAKER) (test vgjx=316) 0.86 K/ L 0.30-0.82 EOSINOPHILS ABSOLUTE COUNT (BEAKER) (test 0.10 K/ L 0.04-0.54 pthh=242) BASOPHILS ABSOLUTE COUNT (BEAKER) (test julk=533) 0.01 K/ L 0.01-0.08 IMMATURE GRANULOCYTES-RELATIVE PERCENT (BEAKER) 1 % 0-1 (test xkan=0175) TISSUE [id number] 14:55:00Surgical Pathology Report Case: [id number] Authorizing Provider: Karina Rain MD Collected: 05/08/2018 2000 Ordering Location: [address] Received: 05/11/2018 0837 Service Pathologist: Jesús Craig MD Specimen: Bone L3 VERTEBRAL BODYBONE BIOPSY:BONE AND BONE MARROW, NEGATIVE FOR MALIGNANCY.SEE DIAGNOSTIC COMMENT. Signing Pathologist Direct Phone Line: [phone] signed by Jesús Craig MD on 05/12/2018 [...] as thesampled material may not be fully surgical device sales representative. This case was discussed with Dr. Andrea Mason, fish processing supervisor.[id number], [id number], [id number], [id number] fracture of body thoracic vertebralL3 vertebral body [...] developed and its performance characteristics determined by [facility], Pathology Laboratory. It has not [...] clinical laboratory testing.RAD, CHEST, 1 VIEW, NON [id number] 13:56:00Reason for exam:->edemaShould this be performed at the bedside?->YesFINAL REPORT Chest one view compared to December 30 Discussion: Ill-defined bilateral airspace opacities are worse since the previous study although this may reflect a lesser inspiratory effort. No gross effusion or pneumothorax. Signed: Karina Pugh Verified Date/Time : 05/12/2018 13:56:44 Reading Location: [address] Consult Reading Room CALCIUM, [id number] 06:58:00 Test Item Value Reference Range Comments CALCIUM IONIZED (BEAKER) (test fprp=878) 1.11 mmol/L 1.12-1.27 PH, BLOOD (BEAKER) (test gnqj=4439) 7.36 [id number] 06:31:00 Test Item Value Reference Range Comments PHOSPHORUS (BEAKER) (test jhoa=386) 2.9 mg/dL 2.3-4.7 [id number] 06:31:00 Test Item Value Reference Range Comments MAGNESIUM (BEAKER) (test smlr=995) 1.9 mg/dL 1.6-2.6 COMPREHENSIVE METABOLIC [id number] 06:31:00 Test Item Value Reference Range Comments TOTAL PROTEIN (BEAKER) 5.8 gm/dL 6.0-8.3 (test nmdb=073) ALBUMIN (BEAKER) (test 4.0 g/dL 3.5-5.0 ihyg=1189) ALKALINE PHOSPHATASE 124 U/L 40-150 (BEAKER) (test fqzk=362) BILIRUBIN TOTAL (BEAKER) 4.3 mg/dL 0.2-1.2 (test rmvm=780) SODIUM (BEAKER) (test 128 meq/L 136-145 jtlm=268) POTASSIUM (BEAKER) (test 3.9 meq/L 3.5-5.1 nphu=778) CHLORIDE (BEAKER) (test 92 meq/L 98-107 ufph=949) CO2 (BEAKER) (test 26 meq/L 22-29 khvr=020) BLOOD UREA NITROGEN 21 mg/dL 7-21 (BEAKER) (test egby=500) CREATININE (BEAKER) (test 1.54 mg/dL 0.57-1.25 todn=530) GLUCOSE RANDOM (BEAKER) 113 mg/dL 70-105 (test pwlq=806) CALCIUM (BEAKER) (test 9.5 mg/dL 8.4-10.2 rhai=809) AST (SGOT) (BEAKER) (test 16 U/L 5-34 pmro=885) ALT (SGPT) (BEAKER) (test 6 U/L 6-55 qsos=725) EGFR (BEAKER) (test 48 mL/min/1.73 sq m ESTIMATED GFR IS NOT faes=7637) ACCURATE CREATININE CLEARANCE IN PREDICTING GLOMERULAR FILTRATION RATE. ESTIMATED GFR IS NOT APPLICABLE FOR DIALYSIS PATIENTS. Specimen slightly ictericHEPATIC FUNCTION [id number] 06:31:00 Test Item Value Reference Range Comments TOTAL PROTEIN (BEAKER) (test pcxk=105) 5.8 gm/dL 6.0-8.3 ALBUMIN (BEAKER) (test hwoo=9539) 4.0 g/dL 3.5-5.0 BILIRUBIN TOTAL (BEAKER) (test cfcv=481) 4.3 mg/dL 0.2-1.2 BILIRUBIN DIRECT (BEAKER) (test lenn=415) 2.3 mg/dL 0.1-0.5 ALKALINE PHOSPHATASE (BEAKER) (test nkzx=949) 124 U/L 40-150 AST (SGOT) (BEAKER) (test vqqo=433) 16 U/L 5-34 ALT (SGPT) (BEAKER) (test rxek=387) 6 U/L 6-55 Specimen slightly ictericPROTHROMBIN [id number] 06:16:00 Test Item Value Reference Range Comments PROTIME (BEAKER) (test udpe=902) 22.3 seconds 11.7-14.7 INR (BEAKER) (test abud=474) 2.0 <=5.9 RECOMMENDED COUMADIN/WARFARIN INR THERAPY RANGESSTANDARD DOSE: 2.0 - 3.0 Includes: PROPHYLAXIS forvenous thrombosis, systemic embolization; TREATMENT for venous thrombosis and/or pulmonary embolus.HIGH RISK: Target INR is 2.5-3.5 for patients with mechanical heart valves.CBC W/PLT COUNT & AUTO [id number] 06:00:00 Test Item Value Reference Range Comments WHITE BLOOD CELL COUNT (BEAKER) (test kzcn=098) 4.3 K/ L 3.5-10.5 RED BLOOD CELL COUNT (BEAKER) (test xacv=393) 2.68 M/ L 4.63-6.08 HEMOGLOBIN (BEAKER) (test sfng=370) 8.3 GM/DL 13.7-17.5 HEMATOCRIT (BEAKER) (test cxyt=701) 25.0 % 40.1-51.0 MEAN CORPUSCULAR VOLUME (BEAKER) (test mdvu=363) 93.3 fL 79.0-92.2 MEAN CORPUSCULAR HEMOGLOBIN (BEAKER) (test 31.0 pg 25.7-32.2 mctv=752) MEAN CORPUSCULAR HEMOGLOBIN CONC (BEAKER) (test 33.2 GM/DL 32.3-36.5 goht=142) RED CELL DISTRIBUTION WIDTH (BEAKER) (test 17.4 % 11.6-14.4 ehyj=390) PLATELET COUNT (BEAKER) (test xbmq=429) 57 K/CU MM 150-450 MEAN PLATELET VOLUME (BEAKER) (test zahx=208) 9.3 fL 9.4-12.4 NUCLEATED RED BLOOD CELLS (BEAKER) (test 0 /100 WBC 0-0 jtdq=333) NEUTROPHILS RELATIVE PERCENT (BEAKER) (test 61 % etux=538) LYMPHOCYTES RELATIVE PERCENT (BEAKER) (test 14 % ecgs=449) MONOCYTES RELATIVE PERCENT (BEAKER) (test 17 % fvho=132) EOSINOPHILS RELATIVE PERCENT (BEAKER) (test 7 % qujr=056) BASOPHILS RELATIVE PERCENT (BEAKER) (test 1 % fwfy=018) NEUTROPHILS ABSOLUTE COUNT (BEAKER) (test 2.62 K/ L 1.78-5.38 wosx=630) LYMPHOCYTES ABSOLUTE COUNT (BEAKER) (test 0.59 K/ L 1.32-3.57 ttmm=283) MONOCYTES ABSOLUTE COUNT (BEAKER) (test erby=494) 0.73 K/ L 0.30-0.82 EOSINOPHILS ABSOLUTE COUNT (BEAKER) (test 0.29 K/ L 0.04-0.54 ogig=194) BASOPHILS ABSOLUTE COUNT (BEAKER) (test aeta=006) 0.02 K/ L 0.01-0.08 IMMATURE GRANULOCYTES-RELATIVE PERCENT (BEAKER) 1 % 0-1 (test olvf=9481) BLOOD [id number] 00:00:00 Test Item Value Reference Range Comments CULTURE (BEAKER) (test mywq=8800) No growth in 5 days BLOOD [id number] 00:00:00 Test Item Value Reference Range Comments CULTURE (BEAKER) (test enbk=1028) No growth in 5 days OSMOLALITY, [id number] 18:16:00 Test Item Value Reference Range Comments OSMOLALITY URINE (BEAKER) (test magw=301) 312 mOsm/kg 40-1400 BODY FLUID CELL COUNT WITH [id number] 17:17:00 Test Item Value Reference Range Comments APPEARANCE FLUID (BEAKER) (test gngk=262) Clear Clear COLOR FLUID (BEAKER) (test sgub=483) Yellow Colorless, Straw RBC FLUID (BEAKER) (test mmti=610) 150 /cu mm <=1 ADJUSTED WBC FLUID (BEAKER) (test adub=6404) 72 /cu mm <=5 LINING CELLS (BEAKER) (test tihe=3835) 2 /cu mm <=1 NEUTROPHILS FLUID (BEAKER) (test kobp=6849) 3 % LYMPHS FLUID (BEAKER) (test xhqf=526) 28 % MONO/MACROPHAGE FLUID (BEAKER) (test koat=786) 68 % EOSINOPHILS FLUID (BEAKER) (test abzl=976) 1 % BASO FLUID (BEAKER) (test gjzk=825) 0 % CONTAINER BODY FLUID (BEAKER) (test zhel=8333) EDTA Tube SODIUM, RANDOM [id number] 17:09:00 Test Item Value Reference Range Comments SODIUM URINE (BEAKER) (test yjkp=616) < meq/L Reference Range: No NormalsURINALYSIS W/ [id number] 17:08:00 Test Item Value Reference Range Comments COLOR (BEAKER) (test ikig=270) Yellow CLARITY (BEAKER) (test lfav=432) Clear SPECIFIC GRAVITY UA (BEAKER) (test jxgr=149) 1.012 1.001-1.035 PH UA (BEAKER) (test mgua=683) 5.5 5.0-8.0 PROTEIN UA (BEAKER) (test hwox=210) Negative Negative GLUCOSE UA (BEAKER) (test qjgi=811) Negative Negative KETONES UA (BEAKER) (test autx=291) Negative Negative BILIRUBIN UA (BEAKER) (test fkkp=751) Negative Negative BLOOD UA (BEAKER) (test dlkn=876) Negative Negative NITRITE UA (BEAKER) (test wony=409) Negative Negative LEUKOCYTE ESTERASE UA (BEAKER) (test etwj=799) Negative Negative UROBILINOGEN UA (BEAKER) (test mnhe=622) 2.0 mg/dL 0.2-1.0 RBC UA (BEAKER) (test eito=331) 0 /HPF WBC UA (BEAKER) (test xxgk=472) 1 /HPF MUCUS (BEAKER) (test igtb=6846) Rare HYALINE CASTS (BEAKER) (test dgys=723) 15 /LPF SOURCE(BEAKER) (test acid=6206) CREATININE, RANDOM [id number] 17:05:00 Test Item Value Reference Range Comments CREATININE URINE (BEAKER) (test okde=240) 116.1 mg/dL Reference Range: No NormalsPROTEIN, RANDOM [id number] 17:05:00 Test Item Value Reference Range Comments PROTEIN, URINE (BEAKER) (test voio=8221) 7 mg/dL 0-14 RAD, SPINE, THORACIC, 2 [id number] 13:53:00Reason for exam:->back pain, s/p kyphoplastyFINAL REPORT [...] Aristeo Xiong Verified Date/Time: 13:53:06 Reading Location: [facility] Reading Room RAD, SPINE, LUMBAR, 2 OR 3 [id number] 13:53:00Reason for exam:->back pain, s/p kyphoplastyFINAL REPORT [...] Aristeo Xiong Verified Date/Time: 13:53:06 Reading Location: [facility] Reading Room U/S, [id number] 12:52:00Limit to 4L due to AKIReason for exam:-> ascitesShould this be performed at the bedside?->NoFINAL REPORT Ultrasound guided paracentesis, 05/11/2018. Clinical History: Ascites. Sedation: None. Human Resources Records Clerk: [facility]. Padded Products Inspector Trimmer: None. Estimated Blood Loss: < 1 cc. [...] was achieved with 1% lidocaine, a 5 Thai one-step catheter was advanced into the peritoneal cavity under ultrasound guidance. After completion of drainage, the catheter was removed. There was no evidence of complication. Patient Disposition: The patient was discharged from the ultrasound department after the paracentesis, in good condition. Impression: Successful ultrasound guided paracentesis. Signed: Vinny Almeida Verified Date/Time: 05/11/2018 12:52:57 Reading Location: [facility] [id number] Ultrasound Reading Room MISCELLANEOUS LAB [id number] 10:45:00 Test Item Value Reference Range Comments SCAN RESULT (test qsxo=[id number]) [id number] 07:31:00 Test Item Value Reference Range Comments PHOSPHORUS (BEAKER) (test gqxc=174) 2.7 mg/dL 2.3-4.7 [id number] 07:31:00 Test Item Value Reference Range Comments MAGNESIUM (BEAKER) (test vowd=972) 1.8 mg/dL 1.6-2.6 COMPREHENSIVE METABOLIC [id number] 07:31:00 Test Item Value Reference Range Comments TOTAL PROTEIN (BEAKER) 5.5 gm/dL 6.0-8.3 (test wprv=015) ALBUMIN (BEAKER) (test 3.5 g/dL 3.5-5.0 hozz=3636) ALKALINE PHOSPHATASE 118 U/L 40-150 (BEAKER) (test ncic=979) BILIRUBIN TOTAL (BEAKER) 5.1 mg/dL 0.2-1.2 (test kgip=584) SODIUM (BEAKER) (test 123 meq/L 136-145 suct=673) POTASSIUM (BEAKER) (test 4.1 meq/L 3.5-5.1 yjft=062) CHLORIDE (BEAKER) (test 91 meq/L 98-107 kkaa=690) CO2 (BEAKER) (test 25 meq/L 22-29 iswl=228) BLOOD UREA NITROGEN 21 mg/dL 7-21 (BEAKER) (test dtyo=427) CREATININE (BEAKER) (test 1.59 mg/dL 0.57-1.25 zgpl=934) GLUCOSE RANDOM (BEAKER) 121 mg/dL 70-105 (test ncog=882) CALCIUM (BEAKER) (test 9.4 mg/dL 8.4-10.2 sajf=454) AST (SGOT) (BEAKER) (test 17 U/L 5-34 ythi=879) ALT (SGPT) (BEAKER) (test 8 U/L 6-55 yujz=764) EGFR (BEAKER) (test 46 mL/min/1.73 sq m ESTIMATED GFR IS NOT jvmi=2704) ACCURATE CREATININE CLEARANCE IN PREDICTING GLOMERULAR FILTRATION RATE. ESTIMATED GFR IS NOT APPLICABLE FOR DIALYSIS PATIENTS. Specimen moderately ictericHEPATIC FUNCTION [id number] 07:31:00 Test Item Value Reference Range Comments TOTAL PROTEIN (BEAKER) (test navt=210) 5.5 gm/dL 6.0-8.3 ALBUMIN (BEAKER) (test ixqa=2553) 3.5 g/dL 3.5-5.0 BILIRUBIN TOTAL (BEAKER) (test cvrt=035) 5.1 mg/dL 0.2-1.2 BILIRUBIN DIRECT (BEAKER) (test ahlq=093) 2.3 mg/dL 0.1-0.5 ALKALINE PHOSPHATASE (BEAKER) (test nuns=775) 118 U/L 40-150 AST (SGOT) (BEAKER) (test kluy=172) 17 U/L 5-34 ALT (SGPT) (BEAKER) (test sudd=996) 8 U/L 6-55 Specimen moderately ictericPROTHROMBIN [id number] 07:17:00 Test Item Value Reference Range Comments PROTIME (BEAKER) (test qrfj=541) 23.8 seconds 11.7-14.7 INR (BEAKER) (test chzr=402) 2.1 <=5.9 RECOMMENDED COUMADIN/WARFARIN INR THERAPY RANGESSTANDARD DOSE: 2.0 - 3.0 Includes: PROPHYLAXIS forvenous thrombosis, systemic embolization; TREATMENT for venous thrombosis and/or pulmonary embolus.HIGH RISK: Target INR is 2.5-3.5 for patients with mechanical heart valves.CBC W/PLT COUNT & AUTO [id number] 07:15:00 Test Item Value Reference Range Comments WHITE BLOOD CELL COUNT (BEAKER) (test ctbs=647) 4.4 K/ L 3.5-10.5 RED BLOOD CELL COUNT (BEAKER) (test oqww=211) 2.52 M/ L 4.63-6.08 HEMOGLOBIN (BEAKER) (test nena=713) 7.9 GM/DL 13.7-17.5 HEMATOCRIT (BEAKER) (test giqd=540) 23.7 % 40.1-51.0 MEAN CORPUSCULAR VOLUME (BEAKER) (test zfdj=119) 94.0 fL 79.0-92.2 MEAN CORPUSCULAR HEMOGLOBIN (BEAKER) (test 31.3 pg 25.7-32.2 dekr=179) MEAN CORPUSCULAR HEMOGLOBIN CONC (BEAKER) (test 33.3 GM/DL 32.3-36.5 vmbq=886) RED CELL DISTRIBUTION WIDTH (BEAKER) (test 17.6 % 11.6-14.4 edaq=082) PLATELET COUNT (BEAKER) (test ssgs=497) 52 K/CU MM 150-450 MEAN PLATELET VOLUME (BEAKER) (test mkaz=967) 9.2 fL 9.4-12.4 NUCLEATED RED BLOOD CELLS (BEAKER) (test 0 /100 WBC 0-0 dhcv=322) NEUTROPHILS RELATIVE PERCENT (BEAKER) (test 62 % nklh=469) LYMPHOCYTES RELATIVE PERCENT (BEAKER) (test 10 % fulb=742) MONOCYTES RELATIVE PERCENT (BEAKER) (test 19 % pkzr=876) EOSINOPHILS RELATIVE PERCENT (BEAKER) (test 8 % dvue=502) BASOPHILS RELATIVE PERCENT (BEAKER) (test 0 % tdet=807) NEUTROPHILS ABSOLUTE COUNT (BEAKER) (test 2.72 K/ L 1.78-5.38 gkxi=831) LYMPHOCYTES ABSOLUTE COUNT (BEAKER) (test 0.42 K/ L 1.32-3.57 omeb=818) MONOCYTES ABSOLUTE COUNT (BEAKER) (test rqms=793) 0.84 K/ L 0.30-0.82 EOSINOPHILS ABSOLUTE COUNT (BEAKER) (test 0.34 K/ L 0.04-0.54 fyzh=672) BASOPHILS ABSOLUTE COUNT (BEAKER) (test oyyt=699) 0.00 K/ L 0.01-0.08 IMMATURE GRANULOCYTES-RELATIVE PERCENT (BEAKER) 1 % 0-1 (test tqzb=3195) CALCIUM, [id number] 07:09:00 Test Item Value Reference Range Comments CALCIUM IONIZED (BEAKER) (test khjd=548) 1.09 mmol/L 1.12-1.27 PH, BLOOD (BEAKER) (test bhkl=3701) 7.36 BASIC METABOLIC [id number] 17:49:00 Test Item Value Reference Range Comments SODIUM (BEAKER) (test 124 meq/L 136-145 rfke=762) POTASSIUM (BEAKER) (test 3.8 meq/L 3.5-5.1 jszv=177) CHLORIDE (BEAKER) (test 91 meq/L 98-107 scnp=012) CO2 (BEAKER) (test 22 meq/L 22-29 fhsg=592) BLOOD UREA NITROGEN 19 mg/dL 7-21 (BEAKER) (test tfbn=601) CREATININE (BEAKER) (test 1.49 mg/dL 0.57-1.25 oyho=443) GLUCOSE RANDOM (BEAKER) 105 mg/dL 70-105 (test vzwv=224) CALCIUM (BEAKER) (test 9.3 mg/dL 8.4-10.2 eaaf=557) EGFR (BEAKER) (test 50 mL/min/1.73 sq m ESTIMATED GFR IS NOT hlhd=1252) ACCURATE CREATININE CLEARANCE IN PREDICTING GLOMERULAR FILTRATION RATE. ESTIMATED GFR IS NOT APPLICABLE FOR DIALYSIS PATIENTS. Call [id number] slightly ictericCALCIUM, [id number] 06:59:00 Test Item Value Reference Range Comments CALCIUM IONIZED (BEAKER) (test lcjr=272) 1.00 mmol/L 1.12-1.27 PH, BLOOD (BEAKER) (test xhvp=3891) 7.47 [id number] 05:42:00 Test Item Value Reference Range Comments PHOSPHORUS (BEAKER) (test pmes=088) 2.7 mg/dL 2.3-4.7 [id number] 05:42:00 Test Item Value Reference Range Comments MAGNESIUM (BEAKER) (test bakq=599) 1.7 mg/dL 1.6-2.6 HEPATIC FUNCTION [id number] 05:42:00 Test Item Value Reference Range Comments TOTAL PROTEIN (BEAKER) (test oedv=626) 5.2 gm/dL 6.0-8.3 ALBUMIN (BEAKER) (test awlr=0411) 3.5 g/dL 3.5-5.0 BILIRUBIN TOTAL (BEAKER) (test hniw=521) 3.4 mg/dL 0.2-1.2 BILIRUBIN DIRECT (BEAKER) (test xeag=834) 1.8 mg/dL 0.1-0.5 ALKALINE PHOSPHATASE (BEAKER) (test joif=843) 106 U/L 40-150 AST (SGOT) (BEAKER) (test cspo=224) 15 U/L 5-34 ALT (SGPT) (BEAKER) (test ktsz=428) 7 U/L 6-55 Specimen slightly ictericPROTHROMBIN [id number] 05:22:00 Test Item Value Reference Range Comments PROTIME (BEAKER) (test yqps=693) 22.6 seconds 11.7-14.7 INR (BEAKER) (test rcoe=787) 2.0 <=5.9 RECOMMENDED COUMADIN/WARFARIN INR THERAPY RANGESSTANDARD DOSE: 2.0 - 3.0 Includes: PROPHYLAXIS forvenous thrombosis, systemic embolization; TREATMENT for venous thrombosis and/or pulmonary embolus.HIGH RISK: Target INR is 2.5-3.5 for patients with mechanical heart valves.CBC W/PLT COUNT & AUTO [id number] 05:10:00 Test Item Value Reference Range Comments WHITE BLOOD CELL COUNT (BEAKER) (test cejv=988) 5.6 K/ L 3.5-10.5 RED BLOOD CELL COUNT (BEAKER) (test gayb=927) 2.09 M/ L 4.63-6.08 HEMOGLOBIN (BEAKER) (test xwpi=731) 6.5 GM/DL 13.7-17.5 HEMATOCRIT (BEAKER) (test owxz=075) 19.8 % 40.1-51.0 MEAN CORPUSCULAR VOLUME (BEAKER) (test mgya=069) 94.7 fL 79.0-92.2 MEAN CORPUSCULAR HEMOGLOBIN (BEAKER) (test 31.1 pg 25.7-32.2 xuwm=631) MEAN CORPUSCULAR HEMOGLOBIN CONC (BEAKER) (test 32.8 GM/DL 32.3-36.5 nttr=464) RED CELL DISTRIBUTION WIDTH (BEAKER) (test 17.3 % 11.6-14.4 qaok=935) PLATELET COUNT (BEAKER) (test lisy=046) 57 K/CU MM 150-450 MEAN PLATELET VOLUME (BEAKER) (test zqyg=009) 8.9 fL 9.4-12.4 NUCLEATED RED BLOOD CELLS (BEAKER) (test 0 /100 WBC 0-0 fuhw=430) NEUTROPHILS RELATIVE PERCENT (BEAKER) (test 71 % oyzw=999) LYMPHOCYTES RELATIVE PERCENT (BEAKER) (test 9 % lwev=291) MONOCYTES RELATIVE PERCENT (BEAKER) (test 16 % vcrj=582) EOSINOPHILS RELATIVE PERCENT (BEAKER) (test 3 % atfl=985) BASOPHILS RELATIVE PERCENT (BEAKER) (test 0 % stvl=276) NEUTROPHILS ABSOLUTE COUNT (BEAKER) (test 3.93 K/ L 1.78-5.38 ohxq=446) LYMPHOCYTES ABSOLUTE COUNT (BEAKER) (test 0.52 K/ L 1.32-3.57 zrbp=895) MONOCYTES ABSOLUTE COUNT (BEAKER) (test xkaz=824) 0.87 K/ L 0.30-0.82 EOSINOPHILS ABSOLUTE COUNT (BEAKER) (test 0.19 K/ L 0.04-0.54 rfeq=606) BASOPHILS ABSOLUTE COUNT (BEAKER) (test jfdu=060) 0.01 K/ L 0.01-0.08 IMMATURE GRANULOCYTES-RELATIVE PERCENT (BEAKER) 1 % 0-1 (test kzjs=7291) HEPATIC FUNCTION [id number] 11:05:00 Test Item Value Reference Range Comments TOTAL PROTEIN (BEAKER) (test pakx=587) 5.7 gm/dL 6.0-8.3 ALBUMIN (BEAKER) (test obui=9177) 3.9 g/dL 3.5-5.0 BILIRUBIN TOTAL (BEAKER) (test uwcz=749) 4.9 mg/dL 0.2-1.2 BILIRUBIN DIRECT (BEAKER) (test cnpd=847) 2.0 mg/dL 0.1-0.5 ALKALINE PHOSPHATASE (BEAKER) (test bsxc=549) 98 U/L 40-150 AST (SGOT) (BEAKER) (test cfln=736) 19 U/L 5-34 ALT (SGPT) (BEAKER) (test feoj=197) 8 U/L 6-55 Specimen moderately ictericBASIC METABOLIC [id number] 10:06:00 Test Item Value Reference Range Comments SODIUM (BEAKER) (test 132 meq/L 136-145 urkq=648) POTASSIUM (BEAKER) (test 5.0 meq/L 3.5-5.1 rbcl=847) CHLORIDE (BEAKER) (test 97 meq/L 98-107 zkhs=012) CO2 (BEAKER) (test 25 meq/L 22-29 jgjy=986) BLOOD UREA NITROGEN 17 mg/dL 7-21 (BEAKER) (test kxaf=170) CREATININE (BEAKER) (test 1.33 mg/dL 0.57-1.25 dcmp=575) GLUCOSE RANDOM (BEAKER) 181 mg/dL 70-105 (test ledo=344) CALCIUM (BEAKER) (test 9.4 mg/dL 8.4-10.2 qubi=279) EGFR (BEAKER) (test 56 mL/min/1.73 sq m ESTIMATED GFR IS NOT tszu=8601) ACCURATE CREATININE CLEARANCE IN PREDICTING GLOMERULAR FILTRATION RATE. ESTIMATED GFR IS NOT APPLICABLE FOR DIALYSIS PATIENTS. Specimen moderately ictericCBC W/PLT COUNT & AUTO [id number] 07: 45:00 Test Item Value Reference Range Comments WHITE BLOOD CELL COUNT (BEAKER) (test mkvx=985) 3.4 K/ L 3.5-10.5 RED BLOOD CELL COUNT (BEAKER) (test whdl=789) 2.26 M/ L 4.63-6.08 HEMOGLOBIN (BEAKER) (test gwup=622) 7.0 GM/DL 13.7-17.5 HEMATOCRIT (BEAKER) (test macv=176) 21.6 % 40.1-51.0 MEAN CORPUSCULAR VOLUME (BEAKER) (test oggp=049) 95.6 fL 79.0-92.2 MEAN CORPUSCULAR HEMOGLOBIN (BEAKER) (test 31.0 pg 25.7-32.2 clwo=727) MEAN CORPUSCULAR HEMOGLOBIN CONC (BEAKER) (test 32.4 GM/DL 32.3-36.5 xibq=580) RED CELL DISTRIBUTION WIDTH (BEAKER) (test 17.3 % 11.6-14.4 acwu=176) PLATELET COUNT (BEAKER) (test hwbl=779) 66 K/CU MM 150-450 MEAN PLATELET VOLUME (BEAKER) (test mzwo=454) 9.8 fL 9.4-12.4 NUCLEATED RED BLOOD CELLS (BEAKER) (test 0 /100 WBC 0-0 ztdr=769) NEUTROPHILS RELATIVE PERCENT (BEAKER) (test 87 % iaiy=633) LYMPHOCYTES RELATIVE PERCENT (BEAKER) (test 7 % erjp=743) MONOCYTES RELATIVE PERCENT (BEAKER) (test 5 % vnar=784) EOSINOPHILS RELATIVE PERCENT (BEAKER) (test 0 % vkxo=726) BASOPHILS RELATIVE PERCENT (BEAKER) (test 0 % hppo=589) NEUTROPHILS ABSOLUTE COUNT (BEAKER) (test 2.94 K/ L 1.78-5.38 nkgz=947) LYMPHOCYTES ABSOLUTE COUNT (BEAKER) (test 0.23 K/ L 1.32-3.57 mjdb=106) MONOCYTES ABSOLUTE COUNT (BEAKER) (test oqyc=083) 0.17 K/ L 0.30-0.82 EOSINOPHILS ABSOLUTE COUNT (BEAKER) (test 0.00 K/ L 0.04-0.54 etik=536) BASOPHILS ABSOLUTE COUNT (BEAKER) (test hyuz=139) 0.00 K/ L 0.01-0.08 IMMATURE GRANULOCYTES-RELATIVE PERCENT (BEAKER) 1 % 0-1 (test bqfj=8605) PROTHROMBIN [id number] 06:06:00 Test Item Value Reference Range Comments PROTIME (BEAKER) (test hlgo=388) 19.1 seconds 11.7-14.7 INR (BEAKER) (test nszk=008) 1.6 <=5.9 RECOMMENDED COUMADIN/WARFARIN INR THERAPY RANGESSTANDARD DOSE: 2.0 - 3.0 Includes: PROPHYLAXIS forvenous thrombosis, systemic embolization; TREATMENT for venous thrombosis and/or pulmonary embolus.HIGH RISK: Target INR is 2.5-3.5 for patients with mechanical heart valves.[id number] 15:35:00 Test Item Value Reference Range Comments PROTIME (BEAKER) (test ztkx=682) 20.3 seconds 11.7-14.7 INR (BEAKER) (test suby=224) 1.7 <=5.9 PARTIAL THROMBOPLASTIN TIME (BEAKER) (test 46.2 seconds 22.5-36.0 ilua=708) RECOMMENDED COUMADIN/WARFARIN INR THERAPY RANGESSTANDARD DOSE: 2.0 - 3.0 Includes: PROPHYLAXIS forvenous thrombosis, systemic embolization; TREATMENT for venous thrombosis and/or pulmonary embolus.HIGH RISK: Target INR is 2.5-3.5 for patients with mechanical heart valves.30 minutes after administration of Jyligqk47 minutes after administration of KcentraPROTHROMBIN TIME/[id number] 15:33:00 Test Item Value Reference Range Comments PROTIME (BEAKER) (test esmc=084) 20.1 seconds 11.7-14.7 INR (BEAKER) (test sheu=368) 1.7 <=5.9 RECOMMENDED COUMADIN/WARFARIN INR THERAPY RANGESSTANDARD DOSE: 2.0 - 3.0 Includes: PROPHYLAXIS forvenous thrombosis, systemic embolization; TREATMENT for venous thrombosis and/or pulmonary embolus.HIGH RISK: Target INR is 2.5-3.5 for patients with mechanical heart valves.Please draw 30 mins after Kcentra doseBODY FLUID CULTURE + GRAM [id number] 11:29:00 Test Item Value Reference Range Comments CULTURE (BEAKER) (test evfi=5115) No growth GRAM STAIN RESULT (BEAKER) (test <1+ WBCs cfot=8089) GRAM STAIN RESULT (BEAKER) (test No organisms seen raoh=07992) CT, [id number] 10:30:00FINAL REPORT HISTORY : r/o intra abdominal [...] T11 and L2 vertebral bodies. Signed: [facility] Del [facility]ost[facility] Verified Date/Time: 05/08/2018 10:30:57 Reading Location: [facility] Diagnostic Imaging Reading Room - [place] [address] CBC W/PLT COUNT & AUTO [id number] 07:27:00 Test Item Value Reference Range Comments WHITE BLOOD CELL COUNT (BEAKER) (test mkjg=912) 3.1 K/ L 3.5-10.5 RED BLOOD CELL COUNT (BEAKER) (test whgv=973) 2.27 M/ L 4.63-6.08 HEMOGLOBIN (BEAKER) (test etnp=985) 7.1 GM/DL 13.7-17.5 HEMATOCRIT (BEAKER) (test svna=814) 21.4 % 40.1-51.0 MEAN CORPUSCULAR VOLUME (BEAKER) (test ukwc=392) 94.3 fL 79.0-92.2 MEAN CORPUSCULAR HEMOGLOBIN (BEAKER) (test 31.3 pg 25.7-32.2 bakp=223) MEAN CORPUSCULAR HEMOGLOBIN CONC (BEAKER) (test 33.2 GM/DL 32.3-36.5 kpkx=894) RED CELL DISTRIBUTION WIDTH (BEAKER) (test 17.5 % 11.6-14.4 jlbz=777) PLATELET COUNT (BEAKER) (test cbfg=662) 43 K/CU MM 150-450 MEAN PLATELET VOLUME (BEAKER) (test yapb=930) 8.7 fL 9.4-12.4 NUCLEATED RED BLOOD CELLS (BEAKER) (test 0 /100 WBC 0-0 xddg=946) NEUTROPHILS RELATIVE PERCENT (BEAKER) (test 60 % byfd=017) LYMPHOCYTES RELATIVE PERCENT (BEAKER) (test 16 % qbws=489) MONOCYTES RELATIVE PERCENT (BEAKER) (test 17 % ctgu=958) EOSINOPHILS RELATIVE PERCENT (BEAKER) (test 7 % cmyb=852) BASOPHILS RELATIVE PERCENT (BEAKER) (test 0 % xxah=417) NEUTROPHILS ABSOLUTE COUNT (BEAKER) (test 1.85 K/ L 1.78-5.38 quar=783) LYMPHOCYTES ABSOLUTE COUNT (BEAKER) (test 0.48 K/ L 1.32-3.57 bajl=246) MONOCYTES ABSOLUTE COUNT (BEAKER) (test gchb=384) 0.54 K/ L 0.30-0.82 EOSINOPHILS ABSOLUTE COUNT (BEAKER) (test 0.22 K/ L 0.04-0.54 ecjm=786) BASOPHILS ABSOLUTE COUNT (BEAKER) (test tzcr=758) 0.00 K/ L 0.01-0.08 IMMATURE GRANULOCYTES-RELATIVE PERCENT (BEAKER) 0 % 0-1 (test fypt=6833) CBC W/PLT COUNT & AUTO [id number] 07:26:00 Test Item Value Reference Range Comments WHITE BLOOD CELL COUNT (BEAKER) (test emte=265) 2.9 K/ L 3.5-10.5 RED BLOOD CELL COUNT (BEAKER) (test hbyv=616) 2.25 M/ L 4.63-6.08 HEMOGLOBIN (BEAKER) (test disk=055) 7.1 GM/DL 13.7-17.5 HEMATOCRIT (BEAKER) (test xmew=390) 21.4 % 40.1-51.0 MEAN CORPUSCULAR VOLUME (BEAKER) (test thnm=663) 95.1 fL 79.0-92.2 MEAN CORPUSCULAR HEMOGLOBIN (BEAKER) (test 31.6 pg 25.7-32.2 wrcl=841) MEAN CORPUSCULAR HEMOGLOBIN CONC (BEAKER) (test 33.2 GM/DL 32.3-36.5 kqtd=352) RED CELL DISTRIBUTION WIDTH (BEAKER) (test 17.5 % 11.6-14.4 vvll=572) PLATELET COUNT (BEAKER) (test xxxq=859) 44 K/CU MM 150-450 MEAN PLATELET VOLUME (BEAKER) (test lrhq=208) 9.3 fL 9.4-12.4 NUCLEATED RED BLOOD CELLS (BEAKER) (test 0 /100 WBC 0-0 vscv=867) NEUTROPHILS RELATIVE PERCENT (BEAKER) (test 59 % tccn=169) LYMPHOCYTES RELATIVE PERCENT (BEAKER) (test 16 % psnm=004) MONOCYTES RELATIVE PERCENT (BEAKER) (test 17 % ncsf=280) EOSINOPHILS RELATIVE PERCENT (BEAKER) (test 7 % ypke=755) BASOPHILS RELATIVE PERCENT (BEAKER) (test 0 % fbqb=563) NEUTROPHILS ABSOLUTE COUNT (BEAKER) (test 1.72 K/ L 1.78-5.38 migm=058) LYMPHOCYTES ABSOLUTE COUNT (BEAKER) (test 0.46 K/ L 1.32-3.57 yryp=292) MONOCYTES ABSOLUTE COUNT (BEAKER) (test ssqp=234) 0.51 K/ L 0.30-0.82 EOSINOPHILS ABSOLUTE COUNT (BEAKER) (test 0.21 K/ L 0.04-0.54 mvst=196) BASOPHILS ABSOLUTE COUNT (BEAKER) (test cyov=708) 0.01 K/ L 0.01-0.08 IMMATURE GRANULOCYTES-RELATIVE PERCENT (BEAKER) 1 % 0-1 (test trgu=7446) BASIC METABOLIC [id number] 07:00:00 Test Item Value Reference Range Comments SODIUM (BEAKER) (test 130 meq/L 136-145 rjai=703) POTASSIUM (BEAKER) (test 3.6 meq/L 3.5-5.1 egud=392) CHLORIDE (BEAKER) (test 94 meq/L 98-107 ijul=229) CO2 (BEAKER) (test 27 meq/L 22-29 xctw=738) BLOOD UREA NITROGEN 19 mg/dL 7-21 (BEAKER) (test hpzr=995) CREATININE (BEAKER) (test 1.40 mg/dL 0.57-1.25 pjrl=840) GLUCOSE RANDOM (BEAKER) 111 mg/dL 70-105 (test ndfy=592) CALCIUM (BEAKER) (test 9.2 mg/dL 8.4-10.2 ummx=201) EGFR (BEAKER) (test 53 mL/min/1.73 sq m ESTIMATED GFR IS NOT jqbv=4104) ACCURATE CREATININE CLEARANCE IN PREDICTING GLOMERULAR FILTRATION RATE. ESTIMATED GFR IS NOT APPLICABLE FOR DIALYSIS PATIENTS. Specimen moderately ictericCOMPREHENSIVE METABOLIC [id number] 07:00:00 Test Item Value Reference Range Comments TOTAL PROTEIN (BEAKER) 5.7 gm/dL 6.0-8.3 (test dufg=586) ALBUMIN (BEAKER) (test 4.0 g/dL 3.5-5.0 zbzo=2684) ALKALINE PHOSPHATASE 92 U/L 40-150 (BEAKER) (test wdmq=092) BILIRUBIN TOTAL (BEAKER) 4.6 mg/dL 0.2-1.2 (test lzak=872) SODIUM (BEAKER) (test 130 meq/L 136-145 txjl=194) POTASSIUM (BEAKER) (test 3.6 meq/L 3.5-5.1 qsrb=859) CHLORIDE (BEAKER) (test 94 meq/L 98-107 sbgq=624) CO2 (BEAKER) (test 27 meq/L 22-29 egyu=430) BLOOD UREA NITROGEN 19 mg/dL 7-21 (BEAKER) (test eyvr=729) CREATININE (BEAKER) (test 1.40 mg/dL 0.57-1.25 egjy=033) GLUCOSE RANDOM (BEAKER) 111 mg/dL 70-105 (test qggv=232) CALCIUM (BEAKER) (test 9.2 mg/dL 8.4-10.2 wsau=709) AST (SGOT) (BEAKER) (test 16 U/L 5-34 ifts=086) ALT (SGPT) (BEAKER) (test 6 U/L 6-55 wvck=060) EGFR (BEAKER) (test 53 mL/min/1.73 sq m ESTIMATED GFR IS NOT ldfx=1732) ACCURATE CREATININE CLEARANCE IN PREDICTING GLOMERULAR FILTRATION RATE. ESTIMATED GFR IS NOT APPLICABLE FOR DIALYSIS PATIENTS. Specimen moderately ictericHEPATIC FUNCTION [id number] 07:00:00 Test Item Value Reference Range Comments TOTAL PROTEIN (BEAKER) (test wnnj=075) 5.7 gm/dL 6.0-8.3 ALBUMIN (BEAKER) (test urir=2410) 4.0 g/dL 3.5-5.0 BILIRUBIN TOTAL (BEAKER) (test grad=443) 4.6 mg/dL 0.2-1.2 BILIRUBIN DIRECT (BEAKER) (test yraf=535) 1.8 mg/dL 0.1-0.5 ALKALINE PHOSPHATASE (BEAKER) (test nmcw=239) 92 U/L 40-150 AST (SGOT) (BEAKER) (test wpno=400) 16 U/L 5-34 ALT (SGPT) (BEAKER) (test inrl=383) 6 U/L 6-55 Specimen moderately [id number] 06:57:00 Test Item Value Reference Range Comments PARTIAL THROMBOPLASTIN TIME (BEAKER) (test 47.9 seconds 22.5-36.0 pahd=683) PROTHROMBIN [id number] 06:55:00 Test Item Value Reference Range Comments PROTIME (BEAKER) (test kxqd=436) 23.7 seconds 11.7-14.7 INR (BEAKER) (test lvix=827) 2.1 <=5.9 RECOMMENDED COUMADIN/WARFARIN INR THERAPY RANGESSTANDARD DOSE: 2.0 - 3.0 Includes: PROPHYLAXIS forvenous thrombosis, systemic embolization; TREATMENT for venous thrombosis and/or pulmonary embolus.HIGH RISK: Target INR is 2.5-3.5 for patients with mechanical heart valves.MR, SPINE, LUMBAR, WITHOUT [id number] 16:57:00FINAL REPORT MRI lumbar spine without contrast [...] 16:57:00 Reading Location: [facility] Radiology Reading Room LACTIC ACID, VENOUS, WHOLE [id number] 14:13:00 Test Item Value Reference Range Comments LACTATE BLOOD VENOUS (2) (BEAKER) (test 2.6 mmol/L 0.5-2.2 fxph=9550) Effective 02/28/2016: Units/Reference Range ChangeNew: 0.5-2.2 mmol/L Previous: 5 -20 mg/dLSpecimen slightly ictericHEMOGLOBIN AND [id number] 13:51:00 Test Item Value Reference Range Comments HEMOGLOBIN (BEAKER) (test azfo=492) 7.1 GM/DL 13.7-17.5 HEMATOCRIT (BEAKER) (test asxh=058) 21.7 % 40.1-51.0 U/S, RENAL, [id number] 09:48:00Reason for exam:->AKIFINAL REPORT Renal ultrasound Clinical [...] MDReport Verified Date/Time: 05/07/2018 09:48:55 Reading Location: [address] Ultrasound Reading Room Electronically signed by: REECE HAQUE MD on 09:[id number] 09:04:00 Test Item Value Reference Range Comments MAGNESIUM (BEAKER) (test pcgn=328) 2.0 mg/dL 1.6-2.6 COMPREHENSIVE METABOLIC [id number] 09:04:00 Test Item Value Reference Range Comments TOTAL PROTEIN (BEAKER) 5.2 gm/dL 6.0-8.3 (test eflq=683) ALBUMIN (BEAKER) (test 3.5 g/dL 3.5-5.0 ukwf=8075) ALKALINE PHOSPHATASE 96 U/L 40-150 (BEAKER) (test repl=852) BILIRUBIN TOTAL (BEAKER) 4.1 mg/dL 0.2-1.2 (test clsk=556) SODIUM (BEAKER) (test 129 meq/L 136-145 wmmb=401) POTASSIUM (BEAKER) (test 3.8 meq/L 3.5-5.1 oyip=649) CHLORIDE (BEAKER) (test 96 meq/L 98-107 wojt=962) CO2 (BEAKER) (test 25 meq/L 22-29 xvec=643) BLOOD UREA NITROGEN 22 mg/dL 7-21 (BEAKER) (test fkxb=488) CREATININE (BEAKER) (test 1.57 mg/dL 0.57-1.25 kkzu=738) GLUCOSE RANDOM (BEAKER) 122 mg/dL 70-105 (test mflb=860) CALCIUM (BEAKER) (test 8.9 mg/dL 8.4-10.2 nroz=925) AST (SGOT) (BEAKER) (test 15 U/L 5-34 fgec=221) ALT (SGPT) (BEAKER) (test 7 U/L 6-55 uxdg=002) EGFR (BEAKER) (test 47 mL/min/1.73 sq m ESTIMATED GFR IS NOT ohtx=1673) ACCURATE CREATININE CLEARANCE IN PREDICTING GLOMERULAR FILTRATION RATE. ESTIMATED GFR IS NOT APPLICABLE FOR DIALYSIS PATIENTS. Specimen moderately ictericHEPATIC FUNCTION [id number] 09:04:00 Test Item Value Reference Range Comments TOTAL PROTEIN (BEAKER) (test lyum=804) 5.2 gm/dL 6.0-8.3 ALBUMIN (BEAKER) (test izbv=1838) 3.5 g/dL 3.5-5.0 BILIRUBIN TOTAL (BEAKER) (test qqad=798) 4.1 mg/dL 0.2-1.2 BILIRUBIN DIRECT (BEAKER) (test euwc=927) 1.8 mg/dL 0.1-0.5 ALKALINE PHOSPHATASE (BEAKER) (test fsuw=944) 96 U/L 40-150 AST (SGOT) (BEAKER) (test llxj=520) 15 U/L 5-34 ALT (SGPT) (BEAKER) (test pdeg=073) 7 U/L 6-55 Specimen moderately ictericCBC W/PLT COUNT & AUTO [id number] 08: 26:00 Test Item Value Reference Range Comments WHITE BLOOD CELL COUNT (BEAKER) (test cxbh=348) 2.7 K/ L 3.5-10.5 RED BLOOD CELL COUNT (BEAKER) (test frct=815) 2.13 M/ L 4.63-6.08 HEMOGLOBIN (BEAKER) (test yxoa=875) 6.8 GM/DL 13.7-17.5 HEMATOCRIT (BEAKER) (test xbwi=975) 19.5 % 40.1-51.0 MEAN CORPUSCULAR VOLUME (BEAKER) (test zcbb=833) 91.5 fL 79.0-92.2 MEAN CORPUSCULAR HEMOGLOBIN (BEAKER) (test 31.9 pg 25.7-32.2 aqzq=397) MEAN CORPUSCULAR HEMOGLOBIN CONC (BEAKER) (test 34.9 GM/DL 32.3-36.5 eaej=061) RED CELL DISTRIBUTION WIDTH (BEAKER) (test 17.5 % 11.6-14.4 imup=900) PLATELET COUNT (BEAKER) (test iihr=393) 52 K/CU MM 150-450 MEAN PLATELET VOLUME (BEAKER) (test qkwv=050) 9.1 fL 9.4-12.4 NUCLEATED RED BLOOD CELLS (BEAKER) (test 0 /100 WBC 0-0 ifbn=908) NEUTROPHILS RELATIVE PERCENT (BEAKER) (test 62 % bmdz=508) LYMPHOCYTES RELATIVE PERCENT (BEAKER) (test 16 % shdp=975) MONOCYTES RELATIVE PERCENT (BEAKER) (test 17 % smng=704) EOSINOPHILS RELATIVE PERCENT (BEAKER) (test 4 % lbpt=972) BASOPHILS RELATIVE PERCENT (BEAKER) (test 0 % fvqf=556) NEUTROPHILS ABSOLUTE COUNT (BEAKER) (test 1.66 K/ L 1.78-5.38 fory=831) LYMPHOCYTES ABSOLUTE COUNT (BEAKER) (test 0.43 K/ L 1.32-3.57 nlep=700) MONOCYTES ABSOLUTE COUNT (BEAKER) (test mdbd=407) 0.44 K/ L 0.30-0.82 EOSINOPHILS ABSOLUTE COUNT (BEAKER) (test 0.11 K/ L 0.04-0.54 gexc=489) BASOPHILS ABSOLUTE COUNT (BEAKER) (test ncrq=505) 0.00 K/ L 0.01-0.08 IMMATURE GRANULOCYTES-RELATIVE PERCENT (BEAKER) 1 % 0-1 (test lupb=3573) PROTHROMBIN [id number] 08:08:00 Test Item Value Reference Range Comments PROTIME (BEAKER) (test ohxs=332) 28.3 seconds 11.7-14.7 INR (BEAKER) (test rhmw=753) 2.7 <=5.9 RECOMMENDED COUMADIN/WARFARIN INR THERAPY RANGESSTANDARD DOSE: 2.0 - 3.0 Includes: PROPHYLAXIS forvenous thrombosis, systemic embolization; TREATMENT for venous thrombosis and/or pulmonary embolus.HIGH RISK: Target INR is 2.5-3.5 for patients with mechanical heart valves.[id number] 19:47:00 Test Item Value Reference Range Comments SODIUM (BEAKER) (test qinr=513) 129 meq/L 136-145 POTASSIUM (BEAKER) (test gqsl=281) 4.6 meq/L 3.5-5.1 CHLORIDE (BEAKER) (test gpxc=337) 96 meq/L 98-107 CO2 (BEAKER) (test gytd=733) 22 meq/L 22-29 Call [id number] 19:27:00 Test Item Value Reference Range Comments HEMOGLOBIN (BEAKER) (test gvhq=170) 7.1 GM/DL 13.7-17.5 HEMATOCRIT (BEAKER) (test evoq=442) 21.4 % 40.1-51.0 Draw after transfusion of 1u RBC, notify hospitalist if Hgb remains less than 7.0HEMOGLOBIN AND [id number] 11:52:00 Test Item Value Reference Range Comments HEMOGLOBIN (BEAKER) (test pnsj=670) 6.3 GM/DL 13.7-17.5 HEMATOCRIT (BEAKER) (test vazr=635) 18.9 % 40.1-51.0 Notify Hepatology if Hgb< 7.0YUNIOR Sandoval, SHIMA-CPager#: [phone].BASIC METABOLIC [id number] 05:55:00 Test Item Value Reference Range Comments SODIUM (BEAKER) (test 129 meq/L 136-145 rmxw=802) POTASSIUM (BEAKER) (test 5.2 meq/L 3.5-5.1 hdep=846) CHLORIDE (BEAKER) (test 97 meq/L 98-107 qzjw=514) CO2 (BEAKER) (test 22 meq/L 22-29 exuf=932) BLOOD UREA NITROGEN 28 mg/dL 7-21 (BEAKER) (test lvqg=627) CREATININE (BEAKER) (test 1.95 mg/dL 0.57-1.25 asri=665) GLUCOSE RANDOM (BEAKER) 102 mg/dL 70-105 (test uqof=620) CALCIUM (BEAKER) (test 9.4 mg/dL 8.4-10.2 xtsp=169) EGFR (BEAKER) (test 36 mL/min/1.73 sq m ESTIMATED GFR IS NOT eawy=5816) ACCURATE CREATININE CLEARANCE IN PREDICTING GLOMERULAR FILTRATION RATE. ESTIMATED GFR IS NOT APPLICABLE FOR DIALYSIS PATIENTS. Specimen slightly ictericHEPATIC FUNCTION [id number] 05:55:00 Test Item Value Reference Range Comments TOTAL PROTEIN (BEAKER) (test ycnz=599) 5.6 gm/dL 6.0-8.3 ALBUMIN (BEAKER) (test iwnz=1523) 3.4 g/dL 3.5-5.0 BILIRUBIN TOTAL (BEAKER) (test balx=309) 3.7 mg/dL 0.2-1.2 BILIRUBIN DIRECT (BEAKER) (test otxs=553) 2.5 mg/dL 0.1-0.5 ALKALINE PHOSPHATASE (BEAKER) (test eswl=326) 108 U/L 40-150 AST (SGOT) (BEAKER) (test fxnx=015) 17 U/L 5-34 ALT (SGPT) (BEAKER) (test vjqb=786) 7 U/L 6-55 Specimen slightly ictericCBC W/PLT COUNT & AUTO [id number] 05:42 :00 Test Item Value Reference Range Comments WHITE BLOOD CELL COUNT (BEAKER) (test hlxf=848) 3.7 K/ L 3.5-10.5 RED BLOOD CELL COUNT (BEAKER) (test ddes=833) 2.10 M/ L 4.63-6.08 HEMOGLOBIN (BEAKER) (test xixk=499) 6.5 GM/DL 13.7-17.5 HEMATOCRIT (BEAKER) (test sqts=324) 19.8 % 40.1-51.0 MEAN CORPUSCULAR VOLUME (BEAKER) (test sxky=575) 94.3 fL 79.0-92.2 MEAN CORPUSCULAR HEMOGLOBIN (BEAKER) (test 31.0 pg 25.7-32.2 nrtf=785) MEAN CORPUSCULAR HEMOGLOBIN CONC (BEAKER) (test 32.8 GM/DL 32.3-36.5 gjyi=923) RED CELL DISTRIBUTION WIDTH (BEAKER) (test 16.4 % 11.6-14.4 hzec=120) PLATELET COUNT (BEAKER) (test idtq=847) 54 K/CU MM 150-450 MEAN PLATELET VOLUME (BEAKER) (test stby=037) 9.8 fL 9.4-12.4 NUCLEATED RED BLOOD CELLS (BEAKER) (test 0 /100 WBC 0-0 uosn=435) NEUTROPHILS RELATIVE PERCENT (BEAKER) (test 62 % kgab=127) LYMPHOCYTES RELATIVE PERCENT (BEAKER) (test 15 % dnzj=008) MONOCYTES RELATIVE PERCENT (BEAKER) (test 18 % wpxc=290) EOSINOPHILS RELATIVE PERCENT (BEAKER) (test 3 % bgsh=857) BASOPHILS RELATIVE PERCENT (BEAKER) (test 0 % dloz=341) NEUTROPHILS ABSOLUTE COUNT (BEAKER) (test 2.27 K/ L 1.78-5.38 phfl=033) LYMPHOCYTES ABSOLUTE COUNT (BEAKER) (test 0.56 K/ L 1.32-3.57 zgvf=440) MONOCYTES ABSOLUTE COUNT (BEAKER) (test wazt=525) 0.66 K/ L 0.30-0.82 EOSINOPHILS ABSOLUTE COUNT (BEAKER) (test 0.12 K/ L 0.04-0.54 hekk=012) BASOPHILS ABSOLUTE COUNT (BEAKER) (test dcek=641) 0.01 K/ L 0.01-0.08 IMMATURE GRANULOCYTES-RELATIVE PERCENT (BEAKER) 1 % 0-1 (test hetk=5853) PROTHROMBIN [id number] 05:34:00 Test Item Value Reference Range Comments PROTIME (BEAKER) (test mxce=850) 21.7 seconds 11.7-14.7 INR (BEAKER) (test jmpi=575) 1.9 <=5.9 RECOMMENDED COUMADIN/WARFARIN INR THERAPY RANGESSTANDARD DOSE: 2.0 - 3.0 Includes: PROPHYLAXIS forvenous thrombosis, systemic embolization; TREATMENT for venous thrombosis and/or pulmonary embolus.HIGH RISK: Target INR is 2.5-3.5 for patients with mechanical heart valves.EOSINOPHIL SMEAR, [id number] 21: 51:00 Test Item Value Reference Range Comments EOSINOPHIL SMEAR, URINE (BEAKER) (test No EOS seen No EOS seen ynqz=1657) BODY FLUID CELL COUNT WITH [id number] 21:42:00 Test Item Value Reference Range Comments APPEARANCE FLUID (BEAKER) (test uigy=134) Hazy Clear COLOR FLUID (BEAKER) (test evsh=791) Yellow Colorless, Straw RBC FLUID (BEAKER) (test tmbu=060) 70 /cu mm <=1 ADJUSTED WBC FLUID (BEAKER) (test vxfd=3875) 44 /cu mm <=5 LINING CELLS (BEAKER) (test kqsi=7169) 8 /cu mm <=1 NEUTROPHILS FLUID (BEAKER) (test hpsm=0887) 0 % LYMPHS FLUID (BEAKER) (test buuc=021) 11 % MONO/MACROPHAGE FLUID (BEAKER) (test prqn=677) 89 % EOSINOPHILS FLUID (BEAKER) (test oyzn=956) 0 % BASO FLUID (BEAKER) (test xjfd=997) 0 % CONTAINER BODY FLUID (BEAKER) (test wdzj=2085) EDTA Tube OSMOLALITY, [id number] 19:46:00 Test Item Value Reference Range Comments OSMOLALITY URINE (BEAKER) (test mgmk=492) 355 mOsm/kg 40-1400 SODIUM, RANDOM [id number] 19:35:00 Test Item Value Reference Range Comments SODIUM URINE (BEAKER) (test pwcu=048) < meq/L Reference Range: No NormalsPROTEIN, RANDOM [id number] 19:27:00 Test Item Value Reference Range Comments PROTEIN, URINE (BEAKER) (test zvma=7314) 7 mg/dL 0-14 CREATININE, RANDOM [id number] 19:25:00 Test Item Value Reference Range Comments CREATININE URINE (BEAKER) (test xnjh=887) 150.3 mg/dL Reference Range: No [id number] 16:26:00 Test Item Value Reference Range Comments PREALBUMIN (BEAKER) (test aqer=080) 5 mg/dL 14-45 Listed for OLT - Nutrition Surveillance ([facility] Hepatology Transplant Team)U/S, [id number] 14:56:00Reason for exam:->ascites - limit to 5L [...] MDReport Verified Date/Time: 05/05/2018 14:56:27 Reading Location: [facility] [id number] Ultrasound Reading Room BASIC METABOLIC [id number] 09:36:00 Test Item Value Reference Range Comments SODIUM (BEAKER) (test 125 meq/L 136-145 dntq=954) POTASSIUM (BEAKER) (test 4.2 meq/L 3.5-5.1 xcgs=731) CHLORIDE (BEAKER) (test 95 meq/L 98-107 siea=133) CO2 (BEAKER) (test 23 meq/L 22-29 ghfx=594) BLOOD UREA NITROGEN 29 mg/dL 7-21 (BEAKER) (test zbfn=446) CREATININE (BEAKER) (test 2.01 mg/dL 0.57-1.25 yign=329) GLUCOSE RANDOM (BEAKER) 112 mg/dL 70-105 (test dumj=276) CALCIUM (BEAKER) (test 9.2 mg/dL 8.4-10.2 jxlm=903) EGFR (BEAKER) (test 35 mL/min/1.73 sq m ESTIMATED GFR IS NOT iflb=9995) ACCURATE CREATININE CLEARANCE IN PREDICTING GLOMERULAR FILTRATION RATE. ESTIMATED GFR IS NOT APPLICABLE FOR DIALYSIS PATIENTS. Specimen slightly ictericHEPATIC FUNCTION [id number] 09:36:00 Test Item Value Reference Range Comments TOTAL PROTEIN (BEAKER) (test kkev=980) 5.3 gm/dL 6.0-8.3 ALBUMIN (BEAKER) (test vcap=9933) 3.0 g/dL 3.5-5.0 BILIRUBIN TOTAL (BEAKER) (test nhly=792) 4.1 mg/dL 0.2-1.2 BILIRUBIN DIRECT (BEAKER) (test icne=866) 2.8 mg/dL 0.1-0.5 ALKALINE PHOSPHATASE (BEAKER) (test cbvf=623) 115 U/L 40-150 AST (SGOT) (BEAKER) (test akvh=839) 20 U/L 5-34 ALT (SGPT) (BEAKER) (test iikz=566) 9 U/L 6-55 Specimen slightly ictericCBC W/PLT COUNT & AUTO [id number] 09:28 :00 Test Item Value Reference Range Comments WHITE BLOOD CELL COUNT (BEAKER) (test rsbb=004) 4.4 K/ L 3.5-10.5 RED BLOOD CELL COUNT (BEAKER) (test emms=089) 2.20 M/ L 4.63-6.08 HEMOGLOBIN (BEAKER) (test jbqf=879) 7.1 GM/DL 13.7-17.5 HEMATOCRIT (BEAKER) (test eqhq=651) 21.1 % 40.1-51.0 MEAN CORPUSCULAR VOLUME (BEAKER) (test nxvs=574) 95.9 fL 79.0-92.2 MEAN CORPUSCULAR HEMOGLOBIN (BEAKER) (test 32.3 pg 25.7-32.2 nlxw=609) MEAN CORPUSCULAR HEMOGLOBIN CONC (BEAKER) (test 33.6 GM/DL 32.3-36.5 cygn=691) RED CELL DISTRIBUTION WIDTH (BEAKER) (test 16.7 % 11.6-14.4 xuzc=543) PLATELET COUNT (BEAKER) (test agqq=329) 60 K/CU MM 150-450 MEAN PLATELET VOLUME (BEAKER) (test ahnp=641) 9.7 fL 9.4-12.4 NUCLEATED RED BLOOD CELLS (BEAKER) (test 0 /100 WBC 0-0 cyjh=267) NEUTROPHILS RELATIVE PERCENT (BEAKER) (test 71 % cfmi=982) LYMPHOCYTES RELATIVE PERCENT (BEAKER) (test 9 % lcqo=131) MONOCYTES RELATIVE PERCENT (BEAKER) (test 16 % pdez=810) EOSINOPHILS RELATIVE PERCENT (BEAKER) (test 3 % kego=684) BASOPHILS RELATIVE PERCENT (BEAKER) (test 0 % jcvj=566) NEUTROPHILS ABSOLUTE COUNT (BEAKER) (test 3.10 K/ L 1.78-5.38 hedi=537) LYMPHOCYTES ABSOLUTE COUNT (BEAKER) (test 0.39 K/ L 1.32-3.57 dyzc=765) MONOCYTES ABSOLUTE COUNT (BEAKER) (test yryk=760) 0.69 K/ L 0.30-0.82 EOSINOPHILS ABSOLUTE COUNT (BEAKER) (test 0.12 K/ L 0.04-0.54 sakm=091) BASOPHILS ABSOLUTE COUNT (BEAKER) (test poyr=979) 0.01 K/ L 0.01-0.08 IMMATURE GRANULOCYTES-RELATIVE PERCENT (BEAKER) 1 % 0-1 (test zzqy=7886) PROTHROMBIN [id number] 09:07:00 Test Item Value Reference Range Comments PROTIME (BEAKER) (test gufv=166) 21.6 seconds 11.7-14.7 INR (BEAKER) (test mxue=287) 1.9 <=5.9 RECOMMENDED COUMADIN/WARFARIN INR THERAPY RANGESSTANDARD DOSE: 2.0 - 3.0 Includes: PROPHYLAXIS forvenous thrombosis, systemic embolization; TREATMENT for venous thrombosis and/or pulmonary embolus.HIGH RISK: Target INR is 2.5-3.5 for patients with mechanical heart valves.[id number] 13:59:00 Test Item Value Reference Range Comments POC-CREATININE (BEAKER) 2.0 mg/dL 0.6-1.3 TESTED AT [facility] [address] [facility] (test rbkn=8113) [facility] [address] POC-EGFR (BEAKER) (test 35 mL/min/1.73M2 qgbu=4949) PET/CT, LIMITED AREA [id number] 08:25:00PET/ CT ChestReason for Exam:-> Elongated nodular [...] thighsAdditional imaging: NoneSerum blood glucose: 119CPT Code: 93084 FINDINGS:Head and Neck: There is no trisha [...] MDReport Verified Date/Time: 03/31/2018 08:25:09 POCT- GLUCOSE [id number] 14:54:00 Test Item Value Reference Range Comments POC-GLUCOSE METER (BEAKER) 119 mg/dL 70-110 TESTED AT [facility] [address] [facility] (test pzff=5951) [facility] [address] COMPREHENSIVE METABOLIC [id number] 16:49:00 Test Item Value Reference Range Comments TOTAL PROTEIN (BEAKER) 6.2 gm/dL 6.0-8.3 (test jyre=987) ALBUMIN (BEAKER) (test 3.4 g/dL 3.5-5.0 hvmy=8060) ALKALINE PHOSPHATASE 139 U/L 40-150 (BEAKER) (test ibrr=316) BILIRUBIN TOTAL (BEAKER) 4.0 mg/dL 0.2-1.2 (test kuej=602) SODIUM (BEAKER) (test 129 meq/L 136-145 kluq=031) POTASSIUM (BEAKER) (test 4.3 meq/L 3.5-5.1 yenn=367) CHLORIDE (BEAKER) (test 96 meq/L 98-107 gxnc=001) CO2 (BEAKER) (test 22 meq/L 22-29 htms=700) BLOOD UREA NITROGEN 28 mg/dL 7-21 (BEAKER) (test zfjl=360) CREATININE (BEAKER) (test 1.51 mg/dL 0.57-1.25 hton=930) GLUCOSE RANDOM (BEAKER) 89 mg/dL 70-105 (test sgin=734) CALCIUM (BEAKER) (test 9.5 mg/dL 8.4-10.2 uwak=105) AST (SGOT) (BEAKER) (test 26 U/L 5-34 ohxz=075) ALT (SGPT) (BEAKER) (test 11 U/L 6-55 taxd=047) EGFR (BEAKER) (test 49 mL/min/1.73 sq m ESTIMATED GFR IS NOT awse=6268) ACCURATE CREATININE CLEARANCE IN PREDICTING GLOMERULAR FILTRATION RATE. ESTIMATED GFR IS NOT APPLICABLE FOR DIALYSIS PATIENTS. Specimen slightly ictericBILIRUBIN, [id number] 16:49:00 Test Item Value Reference Range Comments BILIRUBIN DIRECT (BEAKER) (test kakr=318) 2.8 mg/dL 0.1-0.5 PROTHROMBIN [id number] 16:36:00 Test Item Value Reference Range Comments PROTIME (BEAKER) (test jrbr=207) 19.0 seconds 11.7-14.7 INR (BEAKER) (test edkt=936) 1.6 <=5.9 RECOMMENDED COUMADIN/WARFARIN INR THERAPY RANGESSTANDARD DOSE: 2.0 - 3.0 Includes: PROPHYLAXIS forvenous thrombosis, systemic embolization; TREATMENT for venous thrombosis and/or pulmonary embolus.HIGH RISK: Target INR is 2.5-3.5 for patients with mechanical heart valves.CBC W/PLT COUNT & AUTO [id number] 16:27:00 Test Item Value Reference Range Comments WHITE BLOOD CELL COUNT (BEAKER) (test tirw=421) 6.0 K/ L 3.5-10.5 RED BLOOD CELL COUNT (BEAKER) (test ouvb=416) 2.74 M/ L 4.63-6.08 HEMOGLOBIN (BEAKER) (test bkie=661) 9.3 GM/DL 13.7-17.5 HEMATOCRIT (BEAKER) (test cjkz=466) 27.6 % 40.1-51.0 MEAN CORPUSCULAR VOLUME (BEAKER) (test spbn=721) 100.7 fL 79.0-92.2 MEAN CORPUSCULAR HEMOGLOBIN (BEAKER) (test 33.9 pg 25.7-32.2 qwsx=376) MEAN CORPUSCULAR HEMOGLOBIN CONC (BEAKER) (test 33.7 GM/DL 32.3-36.5 sjui=607) RED CELL DISTRIBUTION WIDTH (BEAKER) (test 14.9 % 11.6-14.4 nkhc=031) PLATELET COUNT (BEAKER) (test diub=331) 96 K/CU MM 150-450 MEAN PLATELET VOLUME (BEAKER) (test ffat=431) 9.4 fL 9.4-12.4 NUCLEATED RED BLOOD CELLS (BEAKER) (test 0 /100 WBC 0-0 afwy=894) NEUTROPHILS RELATIVE PERCENT (BEAKER) (test 64 % tcfk=292) LYMPHOCYTES RELATIVE PERCENT (BEAKER) (test 11 % szmi=537) MONOCYTES RELATIVE PERCENT (BEAKER) (test 16 % vdpt=552) EOSINOPHILS RELATIVE PERCENT (BEAKER) (test 7 % lljd=367) BASOPHILS RELATIVE PERCENT (BEAKER) (test 1 % iwtj=824) NEUTROPHILS ABSOLUTE COUNT (BEAKER) (test 3.83 K/ L 1.78-5.38 ffyr=965) LYMPHOCYTES ABSOLUTE COUNT (BEAKER) (test 0.66 K/ L 1.32-3.57 hclg=113) MONOCYTES ABSOLUTE COUNT (BEAKER) (test hyuk=803) 0.95 K/ L 0.30-0.82 EOSINOPHILS ABSOLUTE COUNT (BEAKER) (test 0.41 K/ L 0.04-0.54 kxmy=891) BASOPHILS ABSOLUTE COUNT (BEAKER) (test hqee=545) 0.03 K/ L 0.01-0.08 IMMATURE GRANULOCYTES-RELATIVE PERCENT (BEAKER) 2 % 0-1 (test kazt=2946) BASIC METABOLIC [id number] 08:26:00 Test Item Value Reference Range Comments SODIUM (BEAKER) (test 127 meq/L 136-145 pczn=233) POTASSIUM (BEAKER) (test 4.3 meq/L 3.5-5.1 sgzl=608) CHLORIDE (BEAKER) (test 96 meq/L 98-107 vzlh=374) CO2 (BEAKER) (test 23 meq/L 22-29 yqcb=929) BLOOD UREA NITROGEN 25 mg/dL 7-21 (BEAKER) (test grii=390) CREATININE (BEAKER) (test 1.46 mg/dL 0.57-1.25 yyck=311) GLUCOSE RANDOM (BEAKER) 130 mg/dL 70-105 (test kfle=786) CALCIUM (BEAKER) (test 9.1 mg/dL 8.4-10.2 hzzd=794) EGFR (BEAKER) (test 51 mL/min/1.73 sq m ESTIMATED GFR IS NOT kqve=3964) ACCURATE CREATININE CLEARANCE IN PREDICTING GLOMERULAR FILTRATION RATE. ESTIMATED GFR IS NOT APPLICABLE FOR DIALYSIS PATIENTS. Specimen slightly ictericCBC (HEMOGRAM ONLY)2018-02-23 08:06:00 Test Item Value Reference Range Comments WHITE BLOOD CELL COUNT (BEAKER) (test tagd=016) 5.4 K/ L 3.5-10.5 RED BLOOD CELL COUNT (BEAKER) (test fcpq=613) 2.64 M/ L 4.63-6.08 HEMOGLOBIN (BEAKER) (test wcfu=569) 8.8 GM/DL 13.7-17.5 HEMATOCRIT (BEAKER) (test lrsf=438) 26.2 % 40.1-51.0 MEAN CORPUSCULAR VOLUME (BEAKER) (test kjcf=575) 99.2 fL 79.0-92.2 MEAN CORPUSCULAR HEMOGLOBIN (BEAKER) (test 33.3 pg 25.7-32.2 pudp=248) MEAN CORPUSCULAR HEMOGLOBIN CONC (BEAKER) (test 33.6 GM/DL 32.3-36.5 xkkw=297) RED CELL DISTRIBUTION WIDTH (BEAKER) (test 16.2 % 11.6-14.4 tlsi=310) PLATELET COUNT (BEAKER) (test zocf=786) 100 K/CU MM 150-450 MEAN PLATELET VOLUME (BEAKER) (test uzbe=834) 8.7 fL 9.4-12.4 NUCLEATED RED BLOOD CELLS (BEAKER) (test 0 /100 WBC 0-0 fwdi=809) COMPREHENSIVE METABOLIC [id number] 15:06:00 Test Item Value Reference Range Comments TOTAL PROTEIN (BEAKER) 6.5 gm/dL 6.0-8.3 (test ttqz=002) ALBUMIN (BEAKER) (test 3.7 g/dL 3.5-5.0 lahr=9611) ALKALINE PHOSPHATASE 135 U/L 40-150 (BEAKER) (test oweh=619) BILIRUBIN TOTAL (BEAKER) 4.5 mg/dL 0.2-1.2 (test svwy=917) SODIUM (BEAKER) (test 131 meq/L 136-145 bozp=795) POTASSIUM (BEAKER) (test 5.8 meq/L 3.5-5.1 ohhj=149) CHLORIDE (BEAKER) (test 103 meq/L 98-107 jweo=836) CO2 (BEAKER) (test 24 meq/L 22-29 nmhp=865) BLOOD UREA NITROGEN 27 mg/dL 7-21 (BEAKER) (test vphq=616) CREATININE (BEAKER) (test 1.17 mg/dL 0.57-1.25 oifs=194) GLUCOSE RANDOM (BEAKER) 111 mg/dL 70-105 (test emli=787) CALCIUM (BEAKER) (test 11.0 mg/dL 8.4-10.2 tjss=525) AST (SGOT) (BEAKER) (test 28 U/L 5-34 eqmc=956) ALT (SGPT) (BEAKER) (test 19 U/L 6-55 qoqo=083) EGFR (BEAKER) (test 65 mL/min/1.73 sq m ESTIMATED GFR IS NOT funu=1573) ACCURATE CREATININE CLEARANCE IN PREDICTING GLOMERULAR FILTRATION RATE. ESTIMATED GFR IS NOT APPLICABLE FOR DIALYSIS PATIENTS. Specimen slightly ictericBILIRUBIN, [id number] 15:06:00 Test Item Value Reference Range Comments BILIRUBIN DIRECT (BEAKER) (test oaix=867) 3.0 mg/dL 0.1-0.5 PROTHROMBIN [id number] 14:42:00 Test Item Value Reference Range Comments PROTIME (BEAKER) (test ymhl=628) 19.1 seconds 11.7-14.7 INR (BEAKER) (test gucr=399) 1.6 <=5.9 RECOMMENDED COUMADIN/WARFARIN INR THERAPY RANGESSTANDARD DOSE: 2.0 - 3.0 Includes: PROPHYLAXIS forvenous thrombosis, systemic embolization; TREATMENT for venous thrombosis and/or pulmonary embolus.HIGH RISK: Target INR is 2.5-3.5 for patients with mechanical heart valves.CBC W/PLT COUNT & AUTO [id number] 14:36:00 Test Item Value Reference Range Comments WHITE BLOOD CELL COUNT (BEAKER) (test srnk=039) 5.5 K/ L 3.5-10.5 RED BLOOD CELL COUNT (BEAKER) (test sfdh=321) 2.84 M/ L 4.63-6.08 HEMOGLOBIN (BEAKER) (test lppc=557) 9.5 GM/DL 13.7-17.5 HEMATOCRIT (BEAKER) (test jtfq=947) 28.8 % 40.1-51.0 MEAN CORPUSCULAR VOLUME (BEAKER) (test bsri=935) 101.4 fL 79.0-92.2 MEAN CORPUSCULAR HEMOGLOBIN (BEAKER) (test 33.5 pg 25.7-32.2 qtuo=809) MEAN CORPUSCULAR HEMOGLOBIN CONC (BEAKER) (test 33.0 GM/DL 32.3-36.5 ffoe=805) RED CELL DISTRIBUTION WIDTH (BEAKER) (test 19.4 % 11.6-14.4 lcze=814) PLATELET COUNT (BEAKER) (test gnhq=508) 65 K/CU MM 150-450 MEAN PLATELET VOLUME (BEAKER) (test zwlk=385) 8.8 fL 9.4-12.4 NUCLEATED RED BLOOD CELLS (BEAKER) (test 0 /100 WBC 0-0 cwst=728) NEUTROPHILS RELATIVE PERCENT (BEAKER) (test 66 % vlvw=890) LYMPHOCYTES RELATIVE PERCENT (BEAKER) (test 14 % ztnb=641) MONOCYTES RELATIVE PERCENT (BEAKER) (test 15 % wlng=446) EOSINOPHILS RELATIVE PERCENT (BEAKER) (test 4 % uisf=752) BASOPHILS RELATIVE PERCENT (BEAKER) (test 0 % bzdv=276) NEUTROPHILS ABSOLUTE COUNT (BEAKER) (test 3.58 K/ L 1.78-5.38 lnmu=308) LYMPHOCYTES ABSOLUTE COUNT (BEAKER) (test 0.78 K/ L 1.32-3.57 jajt=292) MONOCYTES ABSOLUTE COUNT (BEAKER) (test ovqe=081) 0.79 K/ L 0.30-0.82 EOSINOPHILS ABSOLUTE COUNT (BEAKER) (test 0.23 K/ L 0.04-0.54 fpuf=819) BASOPHILS ABSOLUTE COUNT (BEAKER) (test npby=718) 0.02 K/ L 0.01-0.08 IMMATURE GRANULOCYTES-RELATIVE PERCENT (BEAKER) 1 % 0-1 (test joup=3205) RAD, KNEE, COMPLETE (4 VIEWS), [id number] 11:15:00Reason for exam:->FALL , PAINFINAL REPORT Bilateral [...] Quezada Verified Date/Time: 01/06/2018 11:15:08 Reading Location: [facility] Radiology Reading Room RAD, KNEE, COMPLETE (4 VIEWS), [id number] 11:15:00Reason for exam:->FALL, PAINFINAL REPORT Bilateral knee [...] Quezada Verified Date/Time: 01/06/2018 11:15:08 Reading Location: [facility] Radiology Reading Room CBC W/PLT COUNT & AUTO [id number] 10: 58:00 Test Item Value Reference Range Comments WHITE BLOOD CELL COUNT (BEAKER) (test sdag=209) 2.9 K/ L 3.5-10.5 RED BLOOD CELL COUNT (BEAKER) (test aoyy=812) 2.27 M/ L 4.63-6.08 HEMOGLOBIN (BEAKER) (test rils=103) 7.1 GM/DL 13.7-17.5 HEMATOCRIT (BEAKER) (test poaz=848) 21.0 % 40.1-51.0 MEAN CORPUSCULAR VOLUME (BEAKER) (test etop=911) 92.5 fL 79.0-92.2 MEAN CORPUSCULAR HEMOGLOBIN (BEAKER) (test 31.3 pg 25.7-32.2 zyds=949) MEAN CORPUSCULAR HEMOGLOBIN CONC (BEAKER) (test 33.8 GM/DL 32.3-36.5 iwiw=199) RED CELL DISTRIBUTION WIDTH (BEAKER) (test 17.2 % 11.6-14.4 whmz=625) PLATELET COUNT (BEAKER) (test dhzx=610) 42 K/CU MM 150-450 MEAN PLATELET VOLUME (BEAKER) (test rnwp=250) 10.1 fL 9.4-12.4 NUCLEATED RED BLOOD CELLS (BEAKER) (test 0 /100 WBC 0-0 zxow=588) NEUTROPHILS RELATIVE PERCENT (BEAKER) (test 77 % sjds=629) LYMPHOCYTES RELATIVE PERCENT (BEAKER) (test 12 % hwtx=758) MONOCYTES RELATIVE PERCENT (BEAKER) (test 10 % ffvp=556) EOSINOPHILS RELATIVE PERCENT (BEAKER) (test 1 % cnxv=556) BASOPHILS RELATIVE PERCENT (BEAKER) (test 0 % fxzj=718) NEUTROPHILS ABSOLUTE COUNT (BEAKER) (test 2.21 K/ L 1.78-5.38 gfrz=040) LYMPHOCYTES ABSOLUTE COUNT (BEAKER) (test 0.33 K/ L 1.32-3.57 corc=496) MONOCYTES ABSOLUTE COUNT (BEAKER) (test fdob=115) 0.30 K/ L 0.30-0.82 EOSINOPHILS ABSOLUTE COUNT (BEAKER) (test 0.03 K/ L 0.04-0.54 kpdt=297) BASOPHILS ABSOLUTE COUNT (BEAKER) (test gcrm=863) 0.00 K/ L 0.01-0.08 IMMATURE GRANULOCYTES-RELATIVE PERCENT (BEAKER) 0 % 0-1 (test fwid=0219) [id number] 06:06:00 Test Item Value Reference Range Comments PHOSPHORUS (BEAKER) (test hxdh=606) 3.6 mg/dL 2.3-4.7 [id number] 06:06:00 Test Item Value Reference Range Comments MAGNESIUM (BEAKER) (test ijuh=448) 2.0 mg/dL 1.6-2.6 BASIC METABOLIC [id number] 06:06:00 Test Item Value Reference Range Comments SODIUM (BEAKER) (test 130 meq/L 136-145 ijcg=918) POTASSIUM (BEAKER) (test 4.4 meq/L 3.5-5.1 dysd=822) CHLORIDE (BEAKER) (test 100 meq/L 98-107 jyni=695) CO2 (BEAKER) (test 23 meq/L 22-29 uojl=442) BLOOD UREA NITROGEN 21 mg/dL 7-21 (BEAKER) (test hxin=153) CREATININE (BEAKER) (test 1.11 mg/dL 0.57-1.25 cdlf=825) GLUCOSE RANDOM (BEAKER) 120 mg/dL 70-105 (test rejl=146) CALCIUM (BEAKER) (test 9.4 mg/dL 8.4-10.2 djii=725) EGFR (BEAKER) (test 70 mL/min/1.73 sq m ESTIMATED GFR IS NOT wzci=4694) ACCURATE CREATININE CLEARANCE IN PREDICTING GLOMERULAR FILTRATION RATE. ESTIMATED GFR IS NOT APPLICABLE FOR DIALYSIS PATIENTS. Specimen slightly ictericPROTHROMBIN [id number] 06:02:00 Test Item Value Reference Range Comments PROTIME (BEAKER) (test sxaz=196) 22.9 seconds 11.7-14.7 INR (BEAKER) (test xubq=507) 2.0 <=5.9 RECOMMENDED COUMADIN/WARFARIN INR THERAPY RANGESSTANDARD DOSE: 2.0 - 3.0 Includes: PROPHYLAXIS forvenous thrombosis, systemic embolization; TREATMENT for venous thrombosis and/or pulmonary embolus.HIGH RISK: Target INR is 2.5-3.5 for patients with mechanical heart valves.CALCIUM, [id number] 06:01:00 Test Item Value Reference Range Comments CALCIUM IONIZED (BEAKER) (test pivo=368) 1.11 mmol/L 1.12-1.27 PH, BLOOD (BEAKER) (test beoh=2439) 7.53 CORTISOL,60 [id number] 23:20:00 Test Item Value Reference Range Comments CORTISOL BASELINE NETWORKED (BEAKER) (test 4.8 mcg/dL ingu=8480) CORTISOL 30 MINUTE NETWORKED (BEAKER) (test 9.2 mcg/dL zvhx=6465) CORTISOL, 60 MINUTE (BEAKER) (test jzpz=9624) 12.6 ug/dL ACTH STIMULATION TEST INTERPRETATION GUIDELINES(Synonyms: [...] serum cortisollevel 60 minutes after cosyntropin administration.CORTISOL,30 [id number] 22:35:00 Test Item Value Reference Range Comments CORTISOL BASELINE NETWORKED (BEAKER) (test 4.8 mcg/dL lhef=6100) CORTISOL, 30 MINUTE (BEAKER) (test zyxr=2312) 9.2 ug/dL ACTH STIMULATION TEST INTERPRETATION GUIDELINES(Synonyms: [...] study by Mindy et al (NEVAEH 2000,283( 8):4812-24), the ACTH Stimulation Test provides important prognostic [...] Draw serum cortisollevel 60 minutes after cosyntropin administration.CORTISOL,[id number] 22:35:00 Test Item Value Reference Range Comments CORTISOL, BASELINE (TUNG) (test dimf=4223) 4.8 ug/dL ACTH STIMULATION TEST INTERPRETATION GUIDELINES(Synonyms: [...] serum cortisollevel 60 minutes after cosyntropin administration.U/S, [id number] 17:54:00Reason for exam:->therapeuticFINAL REPORT History: Ascites. PROCEDURE: Following informed written consent,the patient's right lower quadrant was prepped and draped in the usual sterile manner. 2% lidocaine was given locally for anesthesia. No conscious sedation was administered. Using ultrasound guidance, a 5 Thai one-step catheter was advanced percutaneously into the [...] Verified Date/Time: 01/05/2018 17: 54:16 Reading Location: [address] Ultrasound Reading Room [id number] 11:19:00 Test Item Value Reference Range Comments CORTISOL, TOTAL (BEAKER) (test xizy=2325) 2.7 ug/dL 3.7-19.4 [id number] 10:21:00 Test Item Value Reference Range Comments PHOSPHORUS (BEAKER) (test prfl=590) 2.8 mg/dL 2.3-4.7 [id number] 10:21:00 Test Item Value Reference Range Comments MAGNESIUM (BEAKER) (test amef=507) 1.9 mg/dL 1.6-2.6 BASIC METABOLIC [id number] 10:21:00 Test Item Value Reference Range Comments SODIUM (BEAKER) (test 127 meq/L 136-145 xmqs=312) POTASSIUM (BEAKER) (test 5.0 meq/L 3.5-5.1 jcef=684) CHLORIDE (BEAKER) (test 100 meq/L 98-107 ykbi=341) CO2 (BEAKER) (test 22 meq/L 22-29 dnvs=551) BLOOD UREA NITROGEN 25 mg/dL 7-21 (BEAKER) (test bhdw=224) CREATININE (BEAKER) (test 1.17 mg/dL 0.57-1.25 ffsr=390) GLUCOSE RANDOM (BEAKER) 84 mg/dL 70-105 (test rtcb=722) CALCIUM (BEAKER) (test 8.7 mg/dL 8.4-10.2 iqiw=728) EGFR (BEAKER) (test 65 mL/min/1.73 sq m ESTIMATED GFR IS NOT vjbv=2185) ACCURATE CREATININE CLEARANCE IN PREDICTING GLOMERULAR FILTRATION RATE. ESTIMATED GFR IS NOT APPLICABLE FOR DIALYSIS PATIENTS. Specimen slightly ictericCBC W/PLT COUNT & AUTO [id number] 08:42 :00 Test Item Value Reference Range Comments WHITE BLOOD CELL COUNT (BEAKER) (test afuc=297) 2.7 K/ L 3.5-10.5 RED BLOOD CELL COUNT (BEAKER) (test eriu=945) 2.33 M/ L 4.63-6.08 HEMOGLOBIN (BEAKER) (test nqba=665) 7.3 GM/DL 13.7-17.5 HEMATOCRIT (BEAKER) (test oqzz=489) 22.0 % 40.1-51.0 MEAN CORPUSCULAR VOLUME (BEAKER) (test vfdv=782) 94.4 fL 79.0-92.2 MEAN CORPUSCULAR HEMOGLOBIN (BEAKER) (test 31.3 pg 25.7-32.2 fghv=805) MEAN CORPUSCULAR HEMOGLOBIN CONC (BEAKER) (test 33.2 GM/DL 32.3-36.5 adtx=692) RED CELL DISTRIBUTION WIDTH (BEAKER) (test 17.2 % 11.6-14.4 fgxs=233) PLATELET COUNT (BEAKER) (test lhdb=305) 45 K/CU MM 150-450 MEAN PLATELET VOLUME (BEAKER) (test psbh=674) 9.3 fL 9.4-12.4 NUCLEATED RED BLOOD CELLS (BEAKER) (test 0 /100 WBC 0-0 kmde=772) NEUTROPHILS RELATIVE PERCENT (BEAKER) (test 60 % wlzw=231) LYMPHOCYTES RELATIVE PERCENT (BEAKER) (test 17 % fcbd=272) MONOCYTES RELATIVE PERCENT (BEAKER) (test 16 % fomf=375) EOSINOPHILS RELATIVE PERCENT (BEAKER) (test 6 % usgn=853) BASOPHILS RELATIVE PERCENT (BEAKER) (test 0 % oubm=706) NEUTROPHILS ABSOLUTE COUNT (BEAKER) (test 1.63 K/ L 1.78-5.38 jwav=244) LYMPHOCYTES ABSOLUTE COUNT (BEAKER) (test 0.45 K/ L 1.32-3.57 stol=297) MONOCYTES ABSOLUTE COUNT (BEAKER) (test iuzc=734) 0.44 K/ L 0.30-0.82 EOSINOPHILS ABSOLUTE COUNT (BEAKER) (test 0.16 K/ L 0.04-0.54 onhr=926) BASOPHILS ABSOLUTE COUNT (BEAKER) (test kxfr=893) 0.01 K/ L 0.01-0.08 IMMATURE GRANULOCYTES-RELATIVE PERCENT (BEAKER) 1 % 0-1 (test oaqb=3723) (MANUAL DIFFERENTIAL)2018-01-05 08:42:00 Test Item Value Reference Range Comments TOTAL COUNTED (BEAKER) (test soze=6700) WBC MORPHOLOGY (BEAKER) (test gwlb=767) Normal PLT MORPHOLOGY (BEAKER) (test bpoa=017) Normal ANISOCYTOSIS (BEAKER) (test ralc=794) 1+ few CALCIUM, [id number] 08:10:00 Test Item Value Reference Range Comments CALCIUM IONIZED (BEAKER) (test ywoo=147) 1.08 mmol/L 1.12-1.27 PH, BLOOD (BEAKER) (test pcgz=5462) 7.44 PROTHROMBIN TIME/[id number] 07:12:00 Test Item Value Reference Range Comments PROTIME (BEAKER) (test ckcv=857) 22.4 seconds 11.7-14.7 INR (BEAKER) (test bnaa=590) 2.0 <=5.9 RECOMMENDED COUMADIN/WARFARIN INR THERAPY RANGESSTANDARD DOSE: 2.0 - 3.0 Includes: PROPHYLAXIS forvenous thrombosis, systemic embolization; TREATMENT for venous thrombosis and/or pulmonary embolus.HIGH RISK: Target INR is 2.5-3.5 for patients with mechanical heart valves.[id number] 17:54:00 Test Item Value Reference Range Comments SODIUM (BEAKER) (test nlfk=567) 129 meq/L 136-145 POTASSIUM (BEAKER) (test fxnr=358) 5.5 meq/L 3.5-5.1 CHLORIDE (BEAKER) (test kgbx=498) 101 meq/L 98-107 CO2 (BEAKER) (test nkoq=802) 26 meq/L 22-29 Call [id number] with resultsCBC (HEMOGRAM ONLY)2018-01-04 07:16:00 Test Item Value Reference Range Comments WHITE BLOOD CELL COUNT (BEAKER) (test rhrs=773) 2.9 K/ L 3.5-10.5 RED BLOOD CELL COUNT (BEAKER) (test onnm=701) 2.25 M/ L 4.63-6.08 HEMOGLOBIN (BEAKER) (test eetj=561) 7.3 GM/DL 13.7-17.5 HEMATOCRIT (BEAKER) (test qows=596) 21.3 % 40.1-51.0 MEAN CORPUSCULAR VOLUME (BEAKER) (test cqje=396) 94.7 fL 79.0-92.2 MEAN CORPUSCULAR HEMOGLOBIN (BEAKER) (test 32.4 pg 25.7-32.2 kici=551) MEAN CORPUSCULAR HEMOGLOBIN CONC (BEAKER) (test 34.3 GM/DL 32.3-36.5 mksp=573) RED CELL DISTRIBUTION WIDTH (BEAKER) (test 17.6 % 11.6-14.4 ejje=832) PLATELET COUNT (BEAKER) (test evkn=574) 59 K/CU MM 150-450 MEAN PLATELET VOLUME (BEAKER) (test vafw=714) 11.3 fL 9.4-12.4 NUCLEATED RED BLOOD CELLS (BEAKER) (test 0 /100 WBC 0-0 ytgm=500) COMPREHENSIVE METABOLIC [id number] 06:49:00 Test Item Value Reference Range Comments TOTAL PROTEIN (BEAKER) 5.3 gm/dL 6.0-8.3 Specimen slightly (test pqky=310) hemolyzed ALBUMIN (BEAKER) (test 3.3 g/dL 3.5-5.0 Specimen slightly vxky=0835) hemolyzed ALKALINE PHOSPHATASE 81 U/L 40-150 (BEAKER) (test xrnc=840) BILIRUBIN TOTAL (BEAKER) 2.4 mg/dL 0.2-1.2 Specimen slightly (test nvnv=854) hemolyzed SODIUM (BEAKER) (test 127 meq/L 136-145 uuaz=865) POTASSIUM (BEAKER) (test 5.7 meq/L 3.5-5.1 Specimen slightly rdwe=756) hemolyzed CHLORIDE (BEAKER) (test 100 meq/L 98-107 lihn=405) CO2 (BEAKER) (test 20 meq/L 22-29 igxl=183) BLOOD UREA NITROGEN 22 mg/dL 7-21 (BEAKER) (test jzva=248) CREATININE (BEAKER) (test 1.14 mg/dL 0.57-1.25 Specimen slightly rkti=986) hemolyzed GLUCOSE RANDOM (BEAKER) 96 mg/dL 70-105 (test snsl=896) CALCIUM (BEAKER) (test 8.9 mg/dL 8.4-10.2 nreo=622) AST (SGOT) (BEAKER) (test 30 U/L 5-34 Specimen slightly yrxt=123) hemolyzed ALT (SGPT) (BEAKER) (test 8 U/L 6-55 Specimen slightly nune=408) hemolyzed EGFR (BEAKER) (test 67 mL/min/1.73 sq m ESTIMATED GFR IS NOT ardl=9963) ACCURATE CREATININE CLEARANCE IN PREDICTING GLOMERULAR FILTRATION RATE. ESTIMATED GFR IS NOT APPLICABLE FOR DIALYSIS PATIENTS. Specimen slightly ictericPROTHROMBIN [id number] 06:15:00 Test Item Value Reference Range Comments PROTIME (BEAKER) (test ojaz=114) 22.7 seconds 11.7-14.7 INR (BEAKER) (test nxts=289) 2.0 <=5.9 RECOMMENDED COUMADIN/WARFARIN INR THERAPY RANGESSTANDARD DOSE: 2.0 - 3.0 Includes: PROPHYLAXIS forvenous thrombosis, systemic embolization; TREATMENT for venous thrombosis and/or pulmonary embolus.HIGH RISK: Target INR is 2.5-3.5 for patients with mechanical heart valves.VITAMIN B12 AND [id number] 16:39 :00 Test Item Value Reference Range Comments VITAMIN B12 (BEAKER) (test yvvm=245) 829 pg/mL 213-816 FOLATE (BEAKER) (test diyx=404) 18.9 ng/mL >=7.0 CALCIUM, [id number] 07:14:00 Test Item Value Reference Range Comments CALCIUM IONIZED (BEAKER) (test lblj=570) 1.08 mmol/L 1.12-1.27 PH, BLOOD (BEAKER) (test uchw=0685) 7.41 COMPREHENSIVE METABOLIC [id number] 07:00:00 Test Item Value Reference Range Comments TOTAL PROTEIN (BEAKER) 5.0 gm/dL 6.0-8.3 (test pdmx=737) ALBUMIN (BEAKER) (test 3.1 g/dL 3.5-5.0 djrt=2049) ALKALINE PHOSPHATASE 65 U/L 40-150 (BEAKER) (test yjkm=856) BILIRUBIN TOTAL (BEAKER) 2.5 mg/dL 0.2-1.2 (test ykoq=514) SODIUM (BEAKER) (test 127 meq/L 136-145 nrbz=874) POTASSIUM (BEAKER) (test 4.7 meq/L 3.5-5.1 clec=299) CHLORIDE (BEAKER) (test 99 meq/L 98-107 ejfo=541) CO2 (BEAKER) (test 23 meq/L 22-29 mmzb=427) BLOOD UREA NITROGEN 21 mg/dL 7-21 (BEAKER) (test eyxz=631) CREATININE (BEAKER) (test 1.13 mg/dL 0.57-1.25 fgmm=576) GLUCOSE RANDOM (BEAKER) 92 mg/dL 70-105 (test gwnb=467) CALCIUM (BEAKER) (test 8.9 mg/dL 8.4-10.2 hexa=735) AST (SGOT) (BEAKER) (test 18 U/L 5-34 pcvt=780) ALT (SGPT) (BEAKER) (test 8 U/L 6-55 ncdp=766) EGFR (BEAKER) (test 68 mL/min/1.73 sq m ESTIMATED GFR IS NOT hptr=7135) ACCURATE CREATININE CLEARANCE IN PREDICTING GLOMERULAR FILTRATION RATE. ESTIMATED GFR IS NOT APPLICABLE FOR DIALYSIS PATIENTS. [id number] 06:37:00 Test Item Value Reference Range Comments PHOSPHORUS (BEAKER) (test emrp=090) 3.2 mg/dL 2.3-4.7 [id number] 06:37:00 Test Item Value Reference Range Comments MAGNESIUM (BEAKER) (test xdzq=901) 1.9 mg/dL 1.6-2.6 CBC (HEMOGRAM ONLY)2018-01-03 06:25:00 Test Item Value Reference Range Comments WHITE BLOOD CELL COUNT (BEAKER) (test wnnh=135) 3.1 K/ L 3.5-10.5 RED BLOOD CELL COUNT (BEAKER) (test anwv=689) 2.31 M/ L 4.63-6.08 HEMOGLOBIN (BEAKER) (test dopv=517) 7.4 GM/DL 13.7-17.5 HEMATOCRIT (BEAKER) (test lldk=575) 21.6 % 40.1-51.0 MEAN CORPUSCULAR VOLUME (BEAKER) (test zofm=070) 93.5 fL 79.0-92.2 MEAN CORPUSCULAR HEMOGLOBIN (BEAKER) (test 32.0 pg 25.7-32.2 fsfc=939) MEAN CORPUSCULAR HEMOGLOBIN CONC (BEAKER) (test 34.3 GM/DL 32.3-36.5 vhid=417) RED CELL DISTRIBUTION WIDTH (BEAKER) (test 17.4 % 11.6-14.4 utxf=806) PLATELET COUNT (BEAKER) (test owoc=658) 50 K/CU MM 150-450 MEAN PLATELET VOLUME (BEAKER) (test jwpl=049) 10.5 fL 9.4-12.4 NUCLEATED RED BLOOD CELLS (BEAKER) (test 0 /100 WBC 0-0 pqig=916) PROTHROMBIN [id number] 06:09:00 Test Item Value Reference Range Comments PROTIME (BEAKER) (test xnjt=993) 22.2 seconds 11.7-14.7 INR (BEAKER) (test blpw=137) 2.0 <=5.9 RECOMMENDED COUMADIN/WARFARIN INR THERAPY RANGESSTANDARD DOSE: 2.0 - 3.0 Includes: PROPHYLAXIS forvenous thrombosis, systemic embolization; TREATMENT for venous thrombosis and/or pulmonary embolus.HIGH RISK: Target INR is 2.5-3.5 for patients with mechanical heart valves.[id number] 07:54:00 Test Item Value Reference Range Comments PHOSPHORUS (BEAKER) (test ofkj=564) 3.2 mg/dL 2.3-4.7 [id number] 07:54:00 Test Item Value Reference Range Comments MAGNESIUM (BEAKER) (test zjua=498) 1.4 mg/dL 1.6-2.6 COMPREHENSIVE METABOLIC [id number] 07:54:00 Test Item Value Reference Range Comments TOTAL PROTEIN (BEAKER) 5.3 gm/dL 6.0-8.3 (test nvbj=794) ALBUMIN (BEAKER) (test 3.4 g/dL 3.5-5.0 spxv=3570) ALKALINE PHOSPHATASE 55 U/L 40-150 (BEAKER) (test xswu=830) BILIRUBIN TOTAL (BEAKER) 3.9 mg/dL 0.2-1.2 (test eahp=916) SODIUM (BEAKER) (test 131 meq/L 136-145 hyqc=584) POTASSIUM (BEAKER) (test 4.3 meq/L 3.5-5.1 euhe=950) CHLORIDE (BEAKER) (test 101 meq/L 98-107 ioyu=602) CO2 (BEAKER) (test 23 meq/L 22-29 wlut=442) BLOOD UREA NITROGEN 19 mg/dL 7-21 (BEAKER) (test opyq=987) CREATININE (BEAKER) (test 0.97 mg/dL 0.57-1.25 hfaq=781) GLUCOSE RANDOM (BEAKER) 80 mg/dL 70-105 (test gkji=075) CALCIUM (BEAKER) (test 9.4 mg/dL 8.4-10.2 wnur=755) AST (SGOT) (BEAKER) (test 17 U/L 5-34 idqk=819) ALT (SGPT) (BEAKER) (test 8 U/L 6-55 pury=890) EGFR (BEAKER) (test 81 mL/min/1.73 sq m ESTIMATED GFR IS NOT gitw=4101) ACCURATE CREATININE CLEARANCE IN PREDICTING GLOMERULAR FILTRATION RATE. ESTIMATED GFR IS NOT APPLICABLE FOR DIALYSIS PATIENTS. Specimen slightly ictericCBC W/PLT COUNT & AUTO [id number] 07:14 :00 Test Item Value Reference Range Comments WHITE BLOOD CELL COUNT (BEAKER) (test nucm=834) 2.9 K/ L 3.5-10.5 RED BLOOD CELL COUNT (BEAKER) (test qgft=936) 2.55 M/ L 4.63-6.08 HEMOGLOBIN (BEAKER) (test fgjc=359) 8.1 GM/DL 13.7-17.5 HEMATOCRIT (BEAKER) (test sisr=640) 23.7 % 40.1-51.0 MEAN CORPUSCULAR VOLUME (BEAKER) (test ytuv=344) 92.9 fL 79.0-92.2 MEAN CORPUSCULAR HEMOGLOBIN (BEAKER) (test 31.8 pg 25.7-32.2 ggus=094) MEAN CORPUSCULAR HEMOGLOBIN CONC (BEAKER) (test 34.2 GM/DL 32.3-36.5 uxjj=729) RED CELL DISTRIBUTION WIDTH (BEAKER) (test 17.5 % 11.6-14.4 yzjb=117) PLATELET COUNT (BEAKER) (test szlh=633) 50 K/CU MM 150-450 MEAN PLATELET VOLUME (BEAKER) (test bglx=138) 9.5 fL 9.4-12.4 NUCLEATED RED BLOOD CELLS (BEAKER) (test 0 /100 WBC 0-0 gflr=155) NEUTROPHILS RELATIVE PERCENT (BEAKER) (test 57 % wsjn=649) LYMPHOCYTES RELATIVE PERCENT (BEAKER) (test 17 % mdgt=520) MONOCYTES RELATIVE PERCENT (BEAKER) (test 18 % ufrx=867) EOSINOPHILS RELATIVE PERCENT (BEAKER) (test 7 % ypxe=924) BASOPHILS RELATIVE PERCENT (BEAKER) (test 0 % dhkz=025) NEUTROPHILS ABSOLUTE COUNT (BEAKER) (test 1.65 K/ L 1.78-5.38 keav=962) LYMPHOCYTES ABSOLUTE COUNT (BEAKER) (test 0.49 K/ L 1.32-3.57 dssh=446) MONOCYTES ABSOLUTE COUNT (BEAKER) (test lbwg=105) 0.51 K/ L 0.30-0.82 EOSINOPHILS ABSOLUTE COUNT (BEAKER) (test 0.20 K/ L 0.04-0.54 bnik=123) BASOPHILS ABSOLUTE COUNT (BEAKER) (test wvte=241) 0.01 K/ L 0.01-0.08 IMMATURE GRANULOCYTES-RELATIVE PERCENT (BEAKER) 1 % 0-1 (test whgw=4019) (MANUAL DIFFERENTIAL)2018-01-02 07:14:00 Test Item Value Reference Range Comments TOTAL COUNTED (BEAKER) (test btne=7465) CALCIUM, [id number] 07:04:00 Test Item Value Reference Range Comments CALCIUM IONIZED (BEAKER) (test pxfi=892) 1.07 mmol/L 1.12-1.27 PH, BLOOD (BEAKER) (test mdpe=3290) 7.49 PROTHROMBIN [id number] 06:42:00 Test Item Value Reference Range Comments PROTIME (BEAKER) (test azqh=243) 24.6 seconds 11.7-14.7 INR (BEAKER) (test szip=649) 2.2 <=5.9 RECOMMENDED COUMADIN/WARFARIN INR THERAPY RANGESSTANDARD DOSE: 2.0 - 3.0 Includes: PROPHYLAXIS forvenous thrombosis, systemic embolization; TREATMENT for venous thrombosis and/or pulmonary embolus.HIGH RISK: Target INR is 2.5-3.5 for patients with mechanical heart valves.CYTOMEGALOVIRUS ANTIBODY, [id number] 14:58:00 Test Item Value Reference Range Comments CYTOMEGALOVIRUS IGG ANTIBODY (BEAKER) (test Positive abqg=649) CYTOMEGALOVIRUS ANTIBODY, [id number] 14:58:00 Test Item Value Reference Range Comments CYTOMEGALOVIRUS IGM ANTIBODY (BEAKER) (test Negative qsvq=109) EBV-VCA ANTIBODY, [id number] 14:58:00 Test Item Value Reference Range Comments MARCELLUS-DAVIS VCA IGG (BEAKER) (test iinj=338) Positive EBV-VCA ANTIBODY, [id number] 14:58:00 Test Item Value Reference Range Comments MARCELLUS-DAVIS VCA IGM (BEAKER) (test kuho=331) Negative BODY FLUID CELL COUNT WITH [id number] 14:27:00 Test Item Value Reference Range Comments APPEARANCE FLUID (BEAKER) (test sxap=714) Slightly Hazy Clear COLOR FLUID (BEAKER) (test cnsd=294) Yellow Colorless, Straw RBC FLUID (BEAKER) (test shoq=651) 378 /cu mm <=1 ADJUSTED WBC FLUID (BEAKER) (test kjym=8589) 84 /cu mm <=5 LINING CELLS (BEAKER) (test vzyq=8944) 17 /cu mm <=1 NEUTROPHILS FLUID (BEAKER) (test jvgm=7869) 1 % LYMPHS FLUID (BEAKER) (test teie=158) 14 % MONO/MACROPHAGE FLUID (BEAKER) (test 85 % ganf=952) EOSINOPHILS FLUID (BEAKER) (test jxeq=233) 0 % BASO FLUID (BEAKER) (test ojkf=203) 0 % CONTAINER BODY FLUID (BEAKER) (test EDTA Tube xjgn=4451) U/S, [id number] 11:17:00Reason for exam:->ascitesFINAL REPORT Ultrasound guided paracentesis, 01/01/2018. Clinical History:Ascites. Sedation: None. Human Resources Records Clerk: Paul Butler MD Padded Products Inspector Trimmer: None. Estimated Blood Loss: < 1 cc. [...] was achieved with 1% lidocaine, a 5 Thai one-step catheter was advanced into the peritoneal cavity under ultrasound guidance. After completion of drainage, the catheter was removed. There was no evidence ofcomplication. Patient Disposition: The patient was transferred to the inpatient unit from the ultrasound department after the paracentesis, in good condition. Impression:Successful ultrasound guided paracentesis. Signed: Paul Butler MDReport Verified Date/Time: 01/01/2018 11:17:26 Reading Location: [address] Ultrasound Reading Room CBC W/PLT COUNT & AUTO [id number] 08:55:00 Test Item Value Reference Range Comments WHITE BLOOD CELL COUNT (BEAKER) (test fdjj=086) 2.6 K/ L 3.5-10.5 RED BLOOD CELL COUNT (BEAKER) (test vykb=847) 2.17 M/ L 4.63-6.08 HEMOGLOBIN (BEAKER) (test lhwd=085) 6.9 GM/DL 13.7-17.5 HEMATOCRIT (BEAKER) (test nuyr=994) 20.6 % 40.1-51.0 MEAN CORPUSCULAR VOLUME (BEAKER) (test hskl=923) 94.9 fL 79.0-92.2 MEAN CORPUSCULAR HEMOGLOBIN (BEAKER) (test 31.8 pg 25.7-32.2 legh=632) MEAN CORPUSCULAR HEMOGLOBIN CONC (BEAKER) (test 33.5 GM/DL 32.3-36.5 rkkv=690) RED CELL DISTRIBUTION WIDTH (BEAKER) (test 17.0 % 11.6-14.4 iwrg=854) PLATELET COUNT (BEAKER) (test bysi=487) 43 K/CU MM 150-450 MEAN PLATELET VOLUME (BEAKER) (test ytxd=322) 9.3 fL 9.4-12.4 NUCLEATED RED BLOOD CELLS (BEAKER) (test 0 /100 WBC 0-0 aiof=996) NEUTROPHILS RELATIVE PERCENT (BEAKER) (test 62 % bwjd=252) LYMPHOCYTES RELATIVE PERCENT (BEAKER) (test 13 % qkol=119) MONOCYTES RELATIVE PERCENT (BEAKER) (test 18 % nvoh=658) EOSINOPHILS RELATIVE PERCENT (BEAKER) (test 6 % loao=239) BASOPHILS RELATIVE PERCENT (BEAKER) (test 0 % nhbu=634) NEUTROPHILS ABSOLUTE COUNT (BEAKER) (test 1.58 K/ L 1.78-5.38 lwqi=848) LYMPHOCYTES ABSOLUTE COUNT (BEAKER) (test 0.33 K/ L 1.32-3.57 abtq=051) MONOCYTES ABSOLUTE COUNT (BEAKER) (test wuek=014) 0.46 K/ L 0.30-0.82 EOSINOPHILS ABSOLUTE COUNT (BEAKER) (test 0.15 K/ L 0.04-0.54 gsuh=712) BASOPHILS ABSOLUTE COUNT (BEAKER) (test jmxx=451) 0.01 K/ L 0.01-0.08 IMMATURE GRANULOCYTES-RELATIVE PERCENT (BEAKER) 1 % 0-1 (test cgxc=0927) (MANUAL DIFFERENTIAL)2018-01-01 08:55:00 Test Item Value Reference Range Comments TOTAL COUNTED (BEAKER) (test wubq=8515) CALCIUM, [id number] 07:43:00 Test Item Value Reference Range Comments CALCIUM IONIZED (BEAKER) (test xqvo=379) 1.14 mmol/L 1.12-1.27 PH, BLOOD (BEAKER) (test hknv=3531) 7.52 [id number] 06:11:00 Test Item Value Reference Range Comments PHOSPHORUS (BEAKER) (test rwkj=498) 2.5 mg/dL 2.3-4.7 [id number] 06:11:00 Test Item Value Reference Range Comments MAGNESIUM (BEAKER) (test orvw=883) 1.7 mg/dL 1.6-2.6 COMPREHENSIVE METABOLIC [id number] 06:11:00 Test Item Value Reference Range Comments TOTAL PROTEIN (BEAKER) 5.6 gm/dL 6.0-8.3 (test fnet=412) ALBUMIN (BEAKER) (test 3.6 g/dL 3.5-5.0 oqdc=6980) ALKALINE PHOSPHATASE 68 U/L 40-150 (BEAKER) (test qbmk=882) BILIRUBIN TOTAL (BEAKER) 2.7 mg/dL 0.2-1.2 (test xzjg=492) SODIUM (BEAKER) (test 132 meq/L 136-145 klbv=798) POTASSIUM (BEAKER) (test 4.9 meq/L 3.5-5.1 zsuc=585) CHLORIDE (BEAKER) (test 102 meq/L 98-107 hlwq=455) CO2 (BEAKER) (test 24 meq/L 22-29 xaar=900) BLOOD UREA NITROGEN 20 mg/dL 7-21 (BEAKER) (test movf=709) CREATININE (BEAKER) (test 1.17 mg/dL 0.57-1.25 lqml=041) GLUCOSE RANDOM (BEAKER) 92 mg/dL 70-105 (test sxij=884) CALCIUM (BEAKER) (test 9.7 mg/dL 8.4-10.2 oqlj=866) AST (SGOT) (BEAKER) (test 16 U/L 5-34 qfoi=481) ALT (SGPT) (BEAKER) (test 8 U/L 6-55 ujui=552) EGFR (BEAKER) (test 65 mL/min/1.73 sq m ESTIMATED GFR IS NOT tiuc=0667) ACCURATE CREATININE CLEARANCE IN PREDICTING GLOMERULAR FILTRATION RATE. ESTIMATED GFR IS NOT APPLICABLE FOR DIALYSIS PATIENTS. Specimen slightly ictericPROTHROMBIN [id number] 06:00:00 Test Item Value Reference Range Comments PROTIME (BEAKER) (test pfap=527) 24.0 seconds 11.7-14.7 INR (BEAKER) (test xyug=085) 2.2 <=5.9 RECOMMENDED COUMADIN/WARFARIN INR THERAPY RANGESSTANDARD DOSE: 2.0 - 3.0 Includes: PROPHYLAXIS forvenous thrombosis, systemic embolization; TREATMENT for venous thrombosis and/or pulmonary embolus.HIGH RISK: Target INR is 2.5-3.5 for patients with mechanical heart valves.CT, CHEST, WITHOUT [id number] 19:24:00FINAL REPORT HISTORY: Lung nodule, >=1cm COMPARISON [...] splenomegaly and upper abdominal ascites. Signed: Nick Del Rosarioeport Verified Date/Time: 12/31/2017 19:24:12 Reading Location: [facility] B1 [id number] Consult Reading Room 07: 24 PMPERIPHERAL BLOOD SMEAR - HOLD [id number] 19:18:00 Test Item Value Reference Range Comments PERIPHERAL SMEAR SAVE (BEAKER) prepared and saved smear, (test eozc=2953) 12/31/17 RETICULOCYTE [id number] 19:14:00 Test Item Value Reference Range Comments RETICULOCYTE COUNT PCT (BEAKER) (test obqr=944) 3.5 % 0.5-1.8 LACTATE DEHYDROGENASE (LDH)2017-12-31 17:47:00 Test Item Value Reference Range Comments LACTATE DEHYDROGENASE (BEAKER) (test qmwz=866) 112 U/L 125-220 BLOOD GAS, [id number] 17:27:00 Test Item Value Reference Range Comments PH ARTERIAL (BEAKER) (test pjhk=876) 7.45 7.35-7.45 PCO2 ARTERIAL (BEAKER) (test sndk=992) 36 mmHg 35-45 PO2 ARTERIAL (BEAKER) (test oqzy=849) 76 mmHg 80-90 O2 SATURATION ARTERIAL (BEAKER) (test zyzo=597) 96.1 % 96.0-97.0 HCO3 ARTERIAL (BEAKER) (test cfmo=412) 24 mmol/L 21-29 BASE EXCESS ARTERIAL (BEAKER) (test dgkr=287) 0.2 mmol/L -2.0-3.0 PATIENT TEMPERATURE (BEAKER) (test cfhc=9587) 36.4 C FIO2 (BEAKER) (test lyke=5077) 21.0 % MYOCARD IMAGING, MULTI, PHARM, [id number] 15:12:00FINAL REPORT PROCEDURE: Rest/Stress MYOCARDIAL PERFUSION SPECT with regadenoson\\XA9\\ CPT CODE: 27245 INDICATION: Liver transplant evaluation HISTORY: Cardiac risk [...] Normal extracardiac tracer distribution. 6. No previous [facility] study for comparison. NONINVASIVE RISK STRATIFICATION: The above findings are considered low risk (<1% annual mortality rate) based on the following criterion:- Normal orsmall myocardial perfusion defect at rest or with stress(JACC. 2012;59(9):857-81.) Signed: [facility] Verified Date/Time: 12/31/2017 15:12:03 Reading Location: [address] Reading Room BILIRUBIN, [id number] 14:10:00 Test Item Value Reference Range Comments BILIRUBIN DIRECT (BEAKER) (test ngtw=446) 1.6 mg/dL 0.1-0.5 HEMOGLOBIN AND [id number] 13:22:00 Test Item Value Reference Range Comments HEMOGLOBIN (BEAKER) (test qhdd=116) 7.3 GM/DL 13.7-17.5 HEMATOCRIT (BEAKER) (test ictt=733) 21.9 % 40.1-51.0 CBC W/PLT COUNT & AUTO [id number] 11:06:00 Test Item Value Reference Range Comments WHITE BLOOD CELL COUNT (BEAKER) (test aghd=293) 2.2 K/ L 3.5-10.5 RED BLOOD CELL COUNT (BEAKER) (test omhf=855) 2.07 M/ L 4.63-6.08 HEMOGLOBIN (BEAKER) (test oaec=264) 6.8 GM/DL 13.7-17.5 HEMATOCRIT (BEAKER) (test eopj=525) 19.6 % 40.1-51.0 MEAN CORPUSCULAR VOLUME (BEAKER) (test dihn=767) 94.7 fL 79.0-92.2 MEAN CORPUSCULAR HEMOGLOBIN (BEAKER) (test 32.9 pg 25.7-32.2 apde=050) MEAN CORPUSCULAR HEMOGLOBIN CONC (BEAKER) (test 34.7 GM/DL 32.3-36.5 uhnm=850) RED CELL DISTRIBUTION WIDTH (BEAKER) (test 16.9 % 11.6-14.4 otlz=837) PLATELET COUNT (BEAKER) (test jdpl=007) 47 K/CU MM 150-450 MEAN PLATELET VOLUME (BEAKER) (test jmmx=616) 9.7 fL 9.4-12.4 NUCLEATED RED BLOOD CELLS (BEAKER) (test 0 /100 WBC 0-0 ysjn=343) NEUTROPHILS RELATIVE PERCENT (BEAKER) (test 54 % kacu=655) LYMPHOCYTES RELATIVE PERCENT (BEAKER) (test 17 % xkeb=286) MONOCYTES RELATIVE PERCENT (BEAKER) (test 21 % xbgl=165) EOSINOPHILS RELATIVE PERCENT (BEAKER) (test 8 % nehr=268) BASOPHILS RELATIVE PERCENT (BEAKER) (test 1 % zfdt=622) NEUTROPHILS ABSOLUTE COUNT (BEAKER) (test 1.17 K/ L 1.78-5.38 ecyz=589) LYMPHOCYTES ABSOLUTE COUNT (BEAKER) (test 0.36 K/ L 1.32-3.57 zhtg=632) MONOCYTES ABSOLUTE COUNT (BEAKER) (test lvnp=404) 0.45 K/ L 0.30-0.82 EOSINOPHILS ABSOLUTE COUNT (BEAKER) (test 0.17 K/ L 0.04-0.54 olks=903) BASOPHILS ABSOLUTE COUNT (BEAKER) (test dzof=664) 0.01 K/ L 0.01-0.08 IMMATURE GRANULOCYTES-RELATIVE PERCENT (BEAKER) 1 % 0-1 (test jrmo=6666) (MANUAL DIFFERENTIAL)2017-12-31 11:06:00 Test Item Value Reference Range Comments TOTAL COUNTED (BEAKER) (test bcdn=1804) [id number] 08:37:00 Test Item Value Reference Range Comments PROTIME (BEAKER) (test rnsz=625) 24.0 seconds 11.7-14.7 INR (BEAKER) (test bqwo=504) 2.2 <=5.9 PARTIAL THROMBOPLASTIN TIME (BEAKER) (test 55.2 seconds 22.5-36.0 bnqg=447) RECOMMENDED COUMADIN/WARFARIN INR THERAPY RANGESSTANDARD DOSE: 2.0 - 3.0 Includes: PROPHYLAXIS forvenous thrombosis, systemic embolization; TREATMENT for venous thrombosis and/or pulmonary embolus.HIGH RISK: Target INR is 2.5-3.5 for patients with mechanical heart valves.COMPREHENSIVE METABOLIC [id number] 06:37:00 Test Item Value Reference Range Comments TOTAL PROTEIN (BEAKER) 5.7 gm/dL 6.0-8.3 (test xuqs=125) ALBUMIN (BEAKER) (test 3.7 g/dL 3.5-5.0 aufz=5057) ALKALINE PHOSPHATASE 70 U/L 40-150 (BEAKER) (test ooox=416) BILIRUBIN TOTAL (BEAKER) 2.6 mg/dL 0.2-1.2 (test jceg=060) SODIUM (BEAKER) (test 130 meq/L 136-145 aboj=320) POTASSIUM (BEAKER) (test 5.2 meq/L 3.5-5.1 nway=455) CHLORIDE (BEAKER) (test 100 meq/L 98-107 vnun=540) CO2 (BEAKER) (test 25 meq/L 22-29 dhiz=169) BLOOD UREA NITROGEN 20 mg/dL 7-21 (BEAKER) (test eofw=075) CREATININE (BEAKER) (test 1.08 mg/dL 0.57-1.25 zznf=851) GLUCOSE RANDOM (BEAKER) 91 mg/dL 70-105 (test xrwj=794) CALCIUM (BEAKER) (test 9.6 mg/dL 8.4-10.2 cbjq=260) AST (SGOT) (BEAKER) (test 16 U/L 5-34 veyp=193) ALT (SGPT) (BEAKER) (test 6 U/L 6-55 pcdl=144) EGFR (BEAKER) (test 72 mL/min/1.73 sq m ESTIMATED GFR IS NOT bpzg=9349) ACCURATE CREATININE CLEARANCE IN PREDICTING GLOMERULAR FILTRATION RATE. ESTIMATED GFR IS NOT APPLICABLE FOR DIALYSIS PATIENTS. Specimen slightly [id number] 06:01:00 Test Item Value Reference Range Comments RPR SCREEN (BEAKER) (test weux=116) Nonreactive Nonreactive CRYPTOCOCCAL [id number] 05:59:00 Test Item Value Reference Range Comments CRYPTOCOCCAL ANTIGEN, SERUM (BEAKER) (test Negative Negative, Interference qlep=5408) RAD, MANDIBLE, MIN 4 [id number] 01:37:00Reason for exam:->liver transplant evalShould this be [...] scattered sclerotic calvarial foci. Signed: Slick Barcenas [facility] Verified Date/Time: 12/31/2017 01:37:57 Reading Location: [address] Reading Room Electronically signed by: SLICK BARCENAS M.D. on 04/2018 01:37 AMRAD, CHEST, 2 [id number] 23:32:00Reason for exam:-> liver transplant evalShould this [...] MDReport Verified Date/Time: 12/30/2017 23:32:31 Reading Location: [address] Reading Room HEMOGLOBIN [id number] 22:54:00 Test Item Value Reference Range Comments HEMOGLOBIN A1C (BEAKER) (test uiha=232) 4.1 % 4.3-6.1 HEPATITIS B SURFACE [id number] 16:31:00 Test Item Value Reference Range Comments HEPATITIS B SURFACE ANTIBODY (BEAKER) (test < mIU/mL <8.0 aucj=078) HEPATITIS B SURFACE [id number] 16:29:00 Test Item Value Reference Range Comments HEPATITIS B SURFACE ANTIGEN (2) (BEAKER) (test Nonreactive Nonreactive escy=1314) HEPATITIS B CORE ANTIBODY, [id number] 16:29:00 Test Item Value Reference Range Comments HEPATITIS B CORE IGM ANTIBODY (BEAKER) (test Nonreactive Nonreactive tqts=615) HEPATITIS A ANTIBODY, [id number] 16:29:00 Test Item Value Reference Range Comments HEPATITIS A IGM ANTIBODY (BEAKER) (test Nonreactive Nonreactive iuwg=356) HEPATITIS B CORE ANTIBODY, [id number] 16:29:00 Test Item Value Reference Range Comments HEPATITIS B CORE TOTAL ANTIBODY (BEAKER) (test Nonreactive Nonreactive vaxi=260) [id number] 16:26:00 Test Item Value Reference Range Comments T4 TOTAL (BEAKER) (test ddpl=129) 3.5 ug/dL 4.9-11.7 [id number] 16:26:00 Test Item Value Reference Range Comments T3 TOTAL (BEAKER) (test wwje=702) 42 ng/dL 48-159 [id number] 16:24:00 Test Item Value Reference Range Comments FERRITIN (BEAKER) (test uzyj=879) 1460 ng/mL 5-275 VITAMIN D, [id number] 16:24:00 Test Item Value Reference Range Comments VITAMIN D 25-OH (BEAKER) (test wlnd=5716) 6.9 ng/mL 6.6-49.9 Effective 08/06/2017: Reference Range ChangeNew: 6.6-49.9 ng/mL Previous: 13.0 -47.8 ng/mLRecommended Vitamin D Target Range: 30.0-40.0 ng/[id number] 16: 24:00 Test Item Value Reference Range Comments THYROID STIMULATING HORMONE (BEAKER) (test 1.55 uIU/mL 0.35-4.94 ozzr=646) CARCINOEMBRYONIC ANTIGEN (CEA)2017-12-30 16:24:00 Test Item Value Reference Range Comments CARCINOEMBRYONIC ANTIGEN (BEAKER) (test phgq=387) 3.0 ng/mL 0.0-5.0 [id number] 16:23:00 Test Item Value Reference Range Comments PROSTATE SPECIFIC ANTIGEN (BEAKER) (test ykzi=154) 0.1 ng/mL 0.0-4.0 HIV-1 ANTIGEN WITH HIV-1/2 [id number] 16:23:00 Test Item Value Reference Range Comments HIV-1 ANTIGEN WITH HIV 1\\T\\2 ANTIBODY (2) Nonreactive Nonreactive (BEAKER) (test vvca=3438) HEPATITIS C [id number] 16:23:00 Test Item Value Reference Range Comments HEPATITIS C ANTIBODY (BEAKER) (test ryfh=196) Nonreactive Nonreactive LIPID [id number] 16:06:00 Test Item Value Reference Range Comments TRIGLYCERIDES (BEAKER) (test kekb=619) 38 mg/dL CHOLESTEROL (BEAKER) (test kwmh=470) 51 mg/dL HDL CHOLESTEROL (BEAKER) (test oasg=758) 10 mg/dL LDL CHOLESTEROL CALCULATED (BEAKER) (test btjp=788) 33 mg/dL Triglyceride Reference Range: Low Risk [...] Value Reference Range Comments IRON (BEAKER) (test enmp=890) 90 ug/dL 40-160 TOTAL IRON BINDING CAPACITY (BEAKER) (test 85 ug/dL 250-450 nmgq=463) IRON % SATURATION (2) (BEAKER) (test ivkb=9820) 106 % 20-55 [id number] 16:04:00 Test Item Value Reference Range Comments TRANSFERRIN (BEAKER) (test croz=513) 65 mg/dL 174-382 Specimen slightly ictericURIC [id number] 16:02:00 Test Item Value Reference Range Comments URIC ACID (BEAKER) (test tghq=006) 8.5 mg/dL 2.6-7.2 Specimen slightly [id number] 15:50:00 Test Item Value Reference Range Comments FIBRINOGEN LEVEL (BEAKER) (test bxug=814) 161 mg/dl 225-434 BODY FLUID CULTURE + GRAM [id number] 11:45:00 Test Item Value Reference Range Comments CULTURE (BEAKER) (test sgea=5386) No growth GRAM STAIN RESULT (BEAKER) (test No WBCs qmwi=2917) GRAM STAIN RESULT (BEAKER) (test No organisms seen ylnu=30889) CBC W/PLT COUNT & AUTO [id number] 08:05:00 Test Item Value Reference Range Comments WHITE BLOOD CELL COUNT (BEAKER) (test skht=159) 2.0 K/ L 3.5-10.5 RED BLOOD CELL COUNT (BEAKER) (test iaue=556) 2.20 M/ L 4.63-6.08 HEMOGLOBIN (BEAKER) (test jwdl=814) 7.1 GM/DL 13.7-17.5 HEMATOCRIT (BEAKER) (test hrev=953) 20.8 % 40.1-51.0 MEAN CORPUSCULAR VOLUME (BEAKER) (test vivz=394) 94.5 fL 79.0-92.2 MEAN CORPUSCULAR HEMOGLOBIN (BEAKER) (test 32.3 pg 25.7-32.2 bhpk=745) MEAN CORPUSCULAR HEMOGLOBIN CONC (BEAKER) (test 34.1 GM/DL 32.3-36.5 kxrk=738) RED CELL DISTRIBUTION WIDTH (BEAKER) (test 17.0 % 11.6-14.4 jwsy=785) PLATELET COUNT (BEAKER) (test ttlu=537) 52 K/CU MM 150-450 MEAN PLATELET VOLUME (BEAKER) (test cnnb=635) 10.7 fL 9.4-12.4 NUCLEATED RED BLOOD CELLS (BEAKER) (test 0 /100 WBC 0-0 yhkz=848) NEUTROPHILS RELATIVE PERCENT (BEAKER) (test 55 % sfaq=216) LYMPHOCYTES RELATIVE PERCENT (BEAKER) (test 16 % ylfo=739) MONOCYTES RELATIVE PERCENT (BEAKER) (test 20 % fzvx=430) EOSINOPHILS RELATIVE PERCENT (BEAKER) (test 8 % qmdo=577) BASOPHILS RELATIVE PERCENT (BEAKER) (test 1 % dzvs=733) NEUTROPHILS ABSOLUTE COUNT (BEAKER) (test 1.10 K/ L 1.78-5.38 viaa=990) LYMPHOCYTES ABSOLUTE COUNT (BEAKER) (test 0.32 K/ L 1.32-3.57 ujhc=808) MONOCYTES ABSOLUTE COUNT (BEAKER) (test tego=213) 0.40 K/ L 0.30-0.82 EOSINOPHILS ABSOLUTE COUNT (BEAKER) (test 0.16 K/ L 0.04-0.54 sqde=416) BASOPHILS ABSOLUTE COUNT (BEAKER) (test nyzb=459) 0.01 K/ L 0.01-0.08 IMMATURE GRANULOCYTES-RELATIVE PERCENT (BEAKER) 1 % 0-1 (test khcu=3551) (MANUAL DIFFERENTIAL)2017-12-30 08:05:00 Test Item Value Reference Range Comments TOTAL COUNTED (BEAKER) (test vbxx=4718) URINALYSIS W/ [id number] 06:46:00 Test Item Value Reference Range Comments COLOR (BEAKER) (test kojx=135) Yellow CLARITY (BEAKER) (test zpdg=793) Clear SPECIFIC GRAVITY UA (BEAKER) (test pula=033) 1.008 1.001-1.035 PH UA (BEAKER) (test owez=105) 6.0 5.0-8.0 PROTEIN UA (BEAKER) (test jvcg=847) Negative Negative GLUCOSE UA (BEAKER) (test dejh=783) Negative Negative KETONES UA (BEAKER) (test kdzv=312) Negative Negative BILIRUBIN UA (BEAKER) (test aptj=069) Negative Negative BLOOD UA (BEAKER) (test xauq=889) Negative Negative NITRITE UA (BEAKER) (test zooa=483) Negative Negative LEUKOCYTE ESTERASE UA (BEAKER) (test xlao=048) Negative Negative UROBILINOGEN UA (BEAKER) (test hkdl=779) 0.2 mg/dL 0.2-1.0 RBC UA (BEAKER) (test naej=612) 0 /HPF WBC UA (BEAKER) (test kmfz=237) 0 /HPF HYALINE CASTS (BEAKER) (test wpxk=506) 5 /LPF SOURCE(BEAKER) (test mfdi=7845) Urine, Voided SODIUM, RANDOM [id number] 06:35:00 Test Item Value Reference Range Comments SODIUM URINE (BEAKER) (test vinj=897) < meq/L Reference Range: No NormalsPROTEIN, RANDOM [id number] 06:35:00 Test Item Value Reference Range Comments PROTEIN, URINE (BEAKER) (test bcvx=9349) < mg/dL 0-14 [id number] 06:21:00 Test Item Value Reference Range Comments MAGNESIUM (BEAKER) (test 1.8 mg/dL 1.6-2.6 Specimen slightly hemolyzed ttca=052) [id number] 06:21:00 Test Item Value Reference Range Comments PHOSPHORUS (BEAKER) (test 2.9 mg/dL 2.3-4.7 Specimen slightly hemolyzed wayx=751) COMPREHENSIVE METABOLIC [id number] 06:21:00 Test Item Value Reference Range Comments TOTAL PROTEIN (BEAKER) 5.6 gm/dL 6.0-8.3 Specimen slightly (test vkrw=483) hemolyzed ALBUMIN (BEAKER) (test 3.5 g/dL 3.5-5.0 Specimen slightly sxic=4257) hemolyzed ALKALINE PHOSPHATASE 75 U/L 40-150 (BEAKER) (test cglw=282) BILIRUBIN TOTAL (BEAKER) 3.0 mg/dL 0.2-1.2 Specimen slightly (test blcv=826) hemolyzed SODIUM (BEAKER) (test 127 meq/L 136-145 whmm=857) POTASSIUM (BEAKER) (test 5.2 meq/L 3.5-5.1 Specimen slightly rbfv=928) hemolyzed CHLORIDE (BEAKER) (test 97 meq/L 98-107 cxhn=432) CO2 (BEAKER) (test 24 meq/L 22-29 lzwj=569) BLOOD UREA NITROGEN 22 mg/dL 7-21 (BEAKER) (test qvch=735) CREATININE (BEAKER) (test 1.11 mg/dL 0.57-1.25 Specimen slightly jxgt=112) hemolyzed GLUCOSE RANDOM (BEAKER) 94 mg/dL 70-105 (test grru=101) CALCIUM (BEAKER) (test 9.4 mg/dL 8.4-10.2 ovtn=550) AST (SGOT) (BEAKER) (test 22 U/L 5-34 Specimen slightly ovte=160) hemolyzed ALT (SGPT) (BEAKER) (test 7 U/L 6-55 Specimen slightly ranm=320) hemolyzed EGFR (BEAKER) (test 70 mL/min/1.73 sq m ESTIMATED GFR IS NOT fvkd=2350) ACCURATE CREATININE CLEARANCE IN PREDICTING GLOMERULAR FILTRATION RATE. ESTIMATED GFR IS NOT APPLICABLE FOR DIALYSIS PATIENTS. Specimen slightly ictericCREATININE, RANDOM [id number] 06:19:00 Test Item Value Reference Range Comments CREATININE URINE (BEAKER) (test juap=735) 60.6 mg/dL Reference Range: No [id number] 13:43:00 Test Item Value Reference Range Comments ETHANOL (BEAKER) (test czrf=888) < mg/dL <=10 COMPREHENSIVE METABOLIC [id number] 08:23:00 Test Item Value Reference Range Comments TOTAL PROTEIN (BEAKER) 5.5 gm/dL 6.0-8.3 (test wjjc=620) ALBUMIN (BEAKER) (test 3.3 g/dL 3.5-5.0 tkvl=8387) ALKALINE PHOSPHATASE 85 U/L 40-150 (BEAKER) (test ysmm=220) BILIRUBIN TOTAL (BEAKER) 3.8 mg/dL 0.2-1.2 (test mfyc=929) SODIUM (BEAKER) (test 125 meq/L 136-145 mtaa=243) POTASSIUM (BEAKER) (test 4.7 meq/L 3.5-5.1 ackr=358) CHLORIDE (BEAKER) (test 96 meq/L 98-107 cste=436) CO2 (BEAKER) (test 21 meq/L 22-29 erui=541) BLOOD UREA NITROGEN 22 mg/dL 7-21 (BEAKER) (test qzcs=395) CREATININE (BEAKER) (test 1.26 mg/dL 0.57-1.25 vmjv=926) GLUCOSE RANDOM (BEAKER) 95 mg/dL 70-105 (test gcpy=197) CALCIUM (BEAKER) (test 9.1 mg/dL 8.4-10.2 cjqe=298) AST (SGOT) (BEAKER) (test 20 U/L 5-34 sitf=753) ALT (SGPT) (BEAKER) (test 8 U/L 6-55 wvpi=525) EGFR (BEAKER) (test 60 mL/min/1.73 sq m ESTIMATED GFR IS NOT oyyi=3475) ACCURATE CREATININE CLEARANCE IN PREDICTING GLOMERULAR FILTRATION RATE. ESTIMATED GFR IS NOT APPLICABLE FOR DIALYSIS PATIENTS. Specimen slightly ictericCBC W/PLT COUNT & AUTO [id number] 07:17 :00 Test Item Value Reference Range Comments WHITE BLOOD CELL COUNT (BEAKER) (test oxjy=610) 2.8 K/ L 3.5-10.5 RED BLOOD CELL COUNT (BEAKER) (test movu=186) 2.28 M/ L 4.63-6.08 HEMOGLOBIN (BEAKER) (test zdxp=024) 7.3 GM/DL 13.7-17.5 HEMATOCRIT (BEAKER) (test ttak=687) 21.4 % 40.1-51.0 MEAN CORPUSCULAR VOLUME (BEAKER) (test uztu=579) 93.9 fL 79.0-92.2 MEAN CORPUSCULAR HEMOGLOBIN (BEAKER) (test 32.0 pg 25.7-32.2 wyuf=088) MEAN CORPUSCULAR HEMOGLOBIN CONC (BEAKER) (test 34.1 GM/DL 32.3-36.5 okrk=805) RED CELL DISTRIBUTION WIDTH (BEAKER) (test 16.9 % 11.6-14.4 daeh=197) PLATELET COUNT (BEAKER) (test bdjd=007) 52 K/CU MM 150-450 MEAN PLATELET VOLUME (BEAKER) (test xwzw=663) 9.8 fL 9.4-12.4 NUCLEATED RED BLOOD CELLS (BEAKER) (test 0 /100 WBC 0-0 jgqv=450) NEUTROPHILS RELATIVE PERCENT (BEAKER) (test 61 % xelx=145) LYMPHOCYTES RELATIVE PERCENT (BEAKER) (test 14 % kdgb=198) MONOCYTES RELATIVE PERCENT (BEAKER) (test 18 % ibxv=197) EOSINOPHILS RELATIVE PERCENT (BEAKER) (test 7 % thqb=202) BASOPHILS RELATIVE PERCENT (BEAKER) (test 0 % eygv=762) NEUTROPHILS ABSOLUTE COUNT (BEAKER) (test 1.69 K/ L 1.78-5.38 krsy=640) LYMPHOCYTES ABSOLUTE COUNT (BEAKER) (test 0.38 K/ L 1.32-3.57 whom=276) MONOCYTES ABSOLUTE COUNT (BEAKER) (test fimn=118) 0.51 K/ L 0.30-0.82 EOSINOPHILS ABSOLUTE COUNT (BEAKER) (test 0.18 K/ L 0.04-0.54 yjor=077) BASOPHILS ABSOLUTE COUNT (BEAKER) (test llzn=152) 0.01 K/ L 0.01-0.08 IMMATURE GRANULOCYTES-RELATIVE PERCENT (BEAKER) 1 % 0-1 (test wgjq=6756) CT, [id number] 22:20:00FINAL REPORT EXAM: CT of the abdomen [...] MDReport Verified Date/Time: 12/28/2017 22:20:52 Reading Location: [address] Transitional Reading Room CBC W/PLT COUNT & AUTO [id number] 18:06:00 Test Item Value Reference Range Comments WHITE BLOOD CELL COUNT (BEAKER) (test nwho=736) 2.9 K/ L 3.5-10.5 RED BLOOD CELL COUNT (BEAKER) (test wfoc=099) 2.03 M/ L 4.63-6.08 HEMOGLOBIN (BEAKER) (test ughg=307) 6.5 GM/DL 13.7-17.5 HEMATOCRIT (BEAKER) (test vbyq=125) 19.2 % 40.1-51.0 MEAN CORPUSCULAR VOLUME (BEAKER) (test zhww=831) 94.6 fL 79.0-92.2 MEAN CORPUSCULAR HEMOGLOBIN (BEAKER) (test 32.0 pg 25.7-32.2 uxwa=577) MEAN CORPUSCULAR HEMOGLOBIN CONC (BEAKER) (test 33.9 GM/DL 32.3-36.5 qxag=841) RED CELL DISTRIBUTION WIDTH (BEAKER) (test 17.6 % 11.6-14.4 embk=755) PLATELET COUNT (BEAKER) (test tzfm=018) 46 K/CU MM 150-450 MEAN PLATELET VOLUME (BEAKER) (test gkan=770) 9.3 fL 9.4-12.4 NUCLEATED RED BLOOD CELLS (BEAKER) (test 0 /100 WBC 0-0 gfar=037) NEUTROPHILS RELATIVE PERCENT (BEAKER) (test 66 % klzt=523) LYMPHOCYTES RELATIVE PERCENT (BEAKER) (test 12 % epen=475) MONOCYTES RELATIVE PERCENT (BEAKER) (test 15 % rhgh=766) EOSINOPHILS RELATIVE PERCENT (BEAKER) (test 6 % rhbw=408) BASOPHILS RELATIVE PERCENT (BEAKER) (test 0 % xgdd=643) NEUTROPHILS ABSOLUTE COUNT (BEAKER) (test 1.92 K/ L 1.78-5.38 eznx=649) LYMPHOCYTES ABSOLUTE COUNT (BEAKER) (test 0.36 K/ L 1.32-3.57 zlhx=602) MONOCYTES ABSOLUTE COUNT (BEAKER) (test jjwr=131) 0.44 K/ L 0.30-0.82 EOSINOPHILS ABSOLUTE COUNT (BEAKER) (test 0.16 K/ L 0.04-0.54 iurq=528) BASOPHILS ABSOLUTE COUNT (BEAKER) (test iebl=991) 0.01 K/ L 0.01-0.08 IMMATURE GRANULOCYTES-RELATIVE PERCENT (BEAKER) 1 % 0-1 (test wksg=2337) CBC W/PLT COUNT & AUTO [id number] 12:30:00 Test Item Value Reference Range Comments WHITE BLOOD CELL COUNT (BEAKER) (test dlav=637) 3.1 K/ L 3.5-10.5 RED BLOOD CELL COUNT (BEAKER) (test uccw=792) 2.09 M/ L 4.63-6.08 HEMOGLOBIN (BEAKER) (test ctsh=889) 6.8 GM/DL 13.7-17.5 HEMATOCRIT (BEAKER) (test rpxd=814) 19.9 % 40.1-51.0 MEAN CORPUSCULAR VOLUME (BEAKER) (test qwkb=718) 95.2 fL 79.0-92.2 MEAN CORPUSCULAR HEMOGLOBIN (BEAKER) (test 32.5 pg 25.7-32.2 fjxk=764) MEAN CORPUSCULAR HEMOGLOBIN CONC (BEAKER) (test 34.2 GM/DL 32.3-36.5 male=318) RED CELL DISTRIBUTION WIDTH (BEAKER) (test 17.5 % 11.6-14.4 txak=496) PLATELET COUNT (BEAKER) (test ghld=845) 65 K/CU MM 150-450 MEAN PLATELET VOLUME (BEAKER) (test aqgn=795) 10.6 fL 9.4-12.4 NUCLEATED RED BLOOD CELLS (BEAKER) (test 0 /100 WBC 0-0 imzy=553) NEUTROPHILS RELATIVE PERCENT (BEAKER) (test 60 % sfra=078) LYMPHOCYTES RELATIVE PERCENT (BEAKER) (test 14 % mbzj=286) MONOCYTES RELATIVE PERCENT (BEAKER) (test 17 % wbsk=090) EOSINOPHILS RELATIVE PERCENT (BEAKER) (test 8 % psgm=385) BASOPHILS RELATIVE PERCENT (BEAKER) (test 0 % hkwg=397) NEUTROPHILS ABSOLUTE COUNT (BEAKER) (test 1.85 K/ L 1.78-5.38 mvbp=505) LYMPHOCYTES ABSOLUTE COUNT (BEAKER) (test 0.42 K/ L 1.32-3.57 aiws=773) MONOCYTES ABSOLUTE COUNT (BEAKER) (test abib=500) 0.52 K/ L 0.30-0.82 EOSINOPHILS ABSOLUTE COUNT (BEAKER) (test 0.26 K/ L 0.04-0.54 jfmy=431) BASOPHILS ABSOLUTE COUNT (BEAKER) (test ulgl=670) 0.01 K/ L 0.01-0.08 IMMATURE GRANULOCYTES-RELATIVE PERCENT (BEAKER) 1 % 0-1 (test vows=7803) U/S, [id number] 06:59:00Limit fluid removal to no more than 5 litersReason for exam:->ascites, concern for sbpShould thisbe performed at the bedside?->NoFINAL REPORT Paracentesis dated 2017 Procedure: Ultrasound-guided paracentesis. Preprocedure diagnosis: Ascites Postprocedure diagnosis: Ascites Conscious sedation: None. Radiologist: Lena Lynn M.D. Padded Products Inspector Trimmer: None Anesthesia: 1% Xylocaine mixed with sodium bicarbonate local anesthesia. Technique: After obtaining informed consent, ultrasound-guided paracentesis was performed under usual sterile technique. Using a 5 hungarian drainage catheter, puncture was made in the right lower quadrant abdomen. Approximately 5000 cc of serous fluid was removed. Patient tolerated the procedure well without complication. Complication: None Graft/ Implant: None Estimated Blood Loss: NoneImpression: Ultrasound-guided paracentesis. Signed: Lena Lynn MDReport Verified Date/Time: 12/28/2017 06:59 :16 Reading Location: [facility] B1 C013Y CT Body Reading Room ALPHA FETOPROTEIN (AFP), TUMOR [id number] 06:22:00 Test Item Value Reference Range Comments ALPHA-FETOPROTEIN (BEAKER) (test aels=2374) 4.1 ng/mL <10.0 COMPREHENSIVE METABOLIC [id number] 06:00:00 Test Item Value Reference Range Comments TOTAL PROTEIN (BEAKER) 5.3 gm/dL 6.0-8.3 (test jwkx=316) ALBUMIN (BEAKER) (test 2.7 g/dL 3.5-5.0 hrnx=5625) ALKALINE PHOSPHATASE 94 U/L 40-150 (BEAKER) (test oopg=130) BILIRUBIN TOTAL (BEAKER) 3.7 mg/dL 0.2-1.2 (test hsdl=841) SODIUM (BEAKER) (test 124 meq/L 136-145 pimi=789) POTASSIUM (BEAKER) (test 4.6 meq/L 3.5-5.1 raqe=535) CHLORIDE (BEAKER) (test 96 meq/L 98-107 jnsz=841) CO2 (BEAKER) (test 22 meq/L 22-29 zaav=502) BLOOD UREA NITROGEN 22 mg/dL 7-21 (BEAKER) (test ueat=609) CREATININE (BEAKER) (test 1.40 mg/dL 0.57-1.25 sipz=361) GLUCOSE RANDOM (BEAKER) 89 mg/dL 70-105 (test xxsg=438) CALCIUM (BEAKER) (test 8.8 mg/dL 8.4-10.2 ixma=234) AST (SGOT) (BEAKER) (test 25 U/L 5-34 fbil=170) ALT (SGPT) (BEAKER) (test 10 U/L 6-55 xqcw=448) EGFR (BEAKER) (test 53 mL/min/1.73 sq m ESTIMATED GFR IS NOT uwvx=5238) ACCURATE CREATININE CLEARANCE IN PREDICTING GLOMERULAR FILTRATION RATE. ESTIMATED GFR IS NOT APPLICABLE FOR DIALYSIS PATIENTS. Specimen slightly ictericCBC W/PLT COUNT & AUTO [id number] 05:50 :00 Test Item Value Reference Range Comments WHITE BLOOD CELL COUNT (BEAKER) (test ksjl=214) 3.1 K/ L 3.5-10.5 RED BLOOD CELL COUNT (BEAKER) (test sjlj=287) 2.00 M/ L 4.63-6.08 HEMOGLOBIN (BEAKER) (test hoxr=140) 6.4 GM/DL 13.7-17.5 HEMATOCRIT (BEAKER) (test pbwo=574) 18.9 % 40.1-51.0 MEAN CORPUSCULAR VOLUME (BEAKER) (test eche=682) 94.5 fL 79.0-92.2 MEAN CORPUSCULAR HEMOGLOBIN (BEAKER) (test 32.0 pg 25.7-32.2 yunz=764) MEAN CORPUSCULAR HEMOGLOBIN CONC (BEAKER) (test 33.9 GM/DL 32.3-36.5 upsu=304) RED CELL DISTRIBUTION WIDTH (BEAKER) (test 17.9 % 11.6-14.4 ywwo=153) PLATELET COUNT (BEAKER) (test rfap=489) 59 K/CU MM 150-450 MEAN PLATELET VOLUME (BEAKER) (test tvlu=584) 10.4 fL 9.4-12.4 NUCLEATED RED BLOOD CELLS (BEAKER) (test 0 /100 WBC 0-0 jwmy=966) NEUTROPHILS RELATIVE PERCENT (BEAKER) (test 63 % ptcw=767) LYMPHOCYTES RELATIVE PERCENT (BEAKER) (test 14 % muvc=743) MONOCYTES RELATIVE PERCENT (BEAKER) (test 15 % okfz=210) EOSINOPHILS RELATIVE PERCENT (BEAKER) (test 7 % zilm=428) BASOPHILS RELATIVE PERCENT (BEAKER) (test 0 % jvfa=008) NEUTROPHILS ABSOLUTE COUNT (BEAKER) (test 1.94 K/ L 1.78-5.38 wndp=046) LYMPHOCYTES ABSOLUTE COUNT (BEAKER) (test 0.44 K/ L 1.32-3.57 vebx=346) MONOCYTES ABSOLUTE COUNT (BEAKER) (test lgoe=422) 0.47 K/ L 0.30-0.82 EOSINOPHILS ABSOLUTE COUNT (BEAKER) (test 0.21 K/ L 0.04-0.54 ibqh=761) BASOPHILS ABSOLUTE COUNT (BEAKER) (test jkbx=367) 0.01 K/ L 0.01-0.08 IMMATURE GRANULOCYTES-RELATIVE PERCENT (BEAKER) 1 % 0-1 (test iojd=5815) BODY FLUID CELL COUNT WITH [id number] 20:39:00 Test Item Value Reference Range Comments APPEARANCE FLUID (BEAKER) (test toyp=141) Slightly Hazy Clear COLOR FLUID (BEAKER) (test htnc=403) Yellow Colorless, Straw RBC FLUID (BEAKER) (test dagu=314) 90 /cu mm <=1 ADJUSTED WBC FLUID (BEAKER) (test xvah=0598) 47 /cu mm <=5 LINING CELLS (BEAKER) (test ieag=5158) 3 /cu mm <=1 NEUTROPHILS FLUID (BEAKER) (test oywk=3938) 2 % LYMPHS FLUID (BEAKER) (test vztm=904) 19 % MONO/MACROPHAGE FLUID (BEAKER) (test 79 % ezph=125) EOSINOPHILS FLUID (BEAKER) (test qwaz=204) 0 % BASO FLUID (BEAKER) (test tifm=066) 0 % CONTAINER BODY FLUID (BEAKER) (test EDTA Tube kspl=1098) ALBUMIN, BODY [id number] 20:14:00 Test Item Value Reference Range Comments ALBUMIN FLUID (BEAKER) (test dzun=968) 0.4 gm/dL Reference Range: No Normals Assay performance has not been validated for this type of specimen.BASIC METABOLIC [id number] 10:31:00 Test Item Value Reference Range Comments SODIUM (BEAKER) (test 125 meq/L 136-145 sznh=451) POTASSIUM (BEAKER) (test 4.5 meq/L 3.5-5.1 vgnh=957) CHLORIDE (BEAKER) (test 98 meq/L 98-107 incw=086) CO2 (BEAKER) (test 20 meq/L 22-29 noqa=936) BLOOD UREA NITROGEN 22 mg/dL 7-21 (BEAKER) (test poxe=272) CREATININE (BEAKER) (test 1.45 mg/dL 0.57-1.25 tacd=928) GLUCOSE RANDOM (BEAKER) 87 mg/dL 70-105 (test ygwo=414) CALCIUM (BEAKER) (test 8.6 mg/dL 8.4-10.2 hlto=271) EGFR (BEAKER) (test 51 mL/min/1.73 sq m ESTIMATED GFR IS NOT ujrt=2336) ACCURATE CREATININE CLEARANCE IN PREDICTING GLOMERULAR FILTRATION RATE. ESTIMATED GFR IS NOT APPLICABLE FOR DIALYSIS PATIENTS. Specimen slightly ictericHEPATIC FUNCTION [id number] 10:31:00 Test Item Value Reference Range Comments TOTAL PROTEIN (BEAKER) (test dcvz=470) 5.8 gm/dL 6.0-8.3 ALBUMIN (BEAKER) (test ovdc=9838) 2.4 g/dL 3.5-5.0 BILIRUBIN TOTAL (BEAKER) (test izxi=752) 4.1 mg/dL 0.2-1.2 BILIRUBIN DIRECT (BEAKER) (test saan=324) 3.1 mg/dL 0.1-0.5 ALKALINE PHOSPHATASE (BEAKER) (test eqyy=636) 126 U/L 40-150 AST (SGOT) (BEAKER) (test rjpo=126) 28 U/L 5-34 ALT (SGPT) (BEAKER) (test dyym=907) 13 U/L 6-55 Specimen slightly ictericCBC W/PLT COUNT & AUTO [id number] 10:09 :00 Test Item Value Reference Range Comments WHITE BLOOD CELL COUNT (BEAKER) (test nflx=560) 5.5 K/ L 3.5-10.5 RED BLOOD CELL COUNT (BEAKER) (test hviq=332) 2.56 M/ L 4.63-6.08 HEMOGLOBIN (BEAKER) (test xfvm=281) 8.1 GM/DL 13.7-17.5 HEMATOCRIT (BEAKER) (test kyeh=837) 24.2 % 40.1-51.0 MEAN CORPUSCULAR VOLUME (BEAKER) (test yuun=098) 94.5 fL 79.0-92.2 MEAN CORPUSCULAR HEMOGLOBIN (BEAKER) (test 31.6 pg 25.7-32.2 tsuh=759) MEAN CORPUSCULAR HEMOGLOBIN CONC (BEAKER) (test 33.5 GM/DL 32.3-36.5 qabx=013) RED CELL DISTRIBUTION WIDTH (BEAKER) (test 18.6 % 11.6-14.4 gvnh=354) PLATELET COUNT (BEAKER) (test tjtr=736) 86 K/CU MM 150-450 MEAN PLATELET VOLUME (BEAKER) (test yged=456) 9.7 fL 9.4-12.4 NUCLEATED RED BLOOD CELLS (BEAKER) (test 0 /100 WBC 0-0 lxnv=015) NEUTROPHILS RELATIVE PERCENT (BEAKER) (test 65 % mppe=272) LYMPHOCYTES RELATIVE PERCENT (BEAKER) (test 13 % nllm=490) MONOCYTES RELATIVE PERCENT (BEAKER) (test 14 % qbtf=954) EOSINOPHILS RELATIVE PERCENT (BEAKER) (test 6 % gizh=328) BASOPHILS RELATIVE PERCENT (BEAKER) (test 0 % kedr=767) NEUTROPHILS ABSOLUTE COUNT (BEAKER) (test 3.59 K/ L 1.78-5.38 ywoo=965) LYMPHOCYTES ABSOLUTE COUNT (BEAKER) (test 0.73 K/ L 1.32-3.57 dhxk=771) MONOCYTES ABSOLUTE COUNT (BEAKER) (test bavc=094) 0.76 K/ L 0.30-0.82 EOSINOPHILS ABSOLUTE COUNT (BEAKER) (test 0.33 K/ L 0.04-0.54 hjky=228) BASOPHILS ABSOLUTE COUNT (BEAKER) (test ivgu=842) 0.02 K/ L 0.01-0.08 IMMATURE GRANULOCYTES-RELATIVE PERCENT (BEAKER) 1 % 0-1 (test jqdr=4278) PROTHROMBIN [id number] 07:51:00 Test Item Value Reference Range Comments PROTIME (BEAKER) (test dkcd=081) 23.8 seconds 11.7-14.7 INR (BEAKER) (test ytih=121) 2.1 <=5.9 RECOMMENDED COUMADIN/WARFARIN INR THERAPY RANGESSTANDARD DOSE: 2.0 - 3.0 Includes: PROPHYLAXIS forvenous thrombosis, systemic embolization; TREATMENT for venous thrombosis and/or pulmonary embolus.HIGH RISK: Target INR is 2.5-3.5 for patients with mechanical heart valves.BLOOD [id number] 05:02:00 Test Item Value Reference Range Comments CULTURE (BEAKER) (test podq=4491) No growth in 5 days BLOOD [id number] 05:02:00 Test Item Value Reference Range Comments CULTURE (BEAKER) (test quta=8288) No growth in 5 days BODY FLUID CULTURE + GRAM [id number] 09:05:00 Test Item Value Reference Range Comments CULTURE (BEAKER) (test hfba=3510) No growth GRAM STAIN RESULT (BEAKER) (test No White blood cells seen fdie=6313) GRAM STAIN RESULT (BEAKER) (test No organisms seen plzg=17933) RAPID DRUG SCREEN, [id number] 23:13:00 Test Item Value Reference Range Comments BARBITURATE URINE (BEAKER) (test qckx=132) Negative Negative BENZODIAZEPINE SCREEN URINE (BEAKER) (test Negative Negative eyec=159) COCAINE (METAB.) SCREEN (BEAKER) (test fias=3583) Negative Negative METHADONE SCREEN (BEAKER) (test gtqp=6368) Negative Negative OPIATE SCREEN URINE (BEAKER) (test vezh=318) Negative Negative CANNABINOID SCREEN URINE (BEAKER) (test gash=801) Negative Negative AMPH/METHAMPH SCREEN (BEAKER) (test gjcw=7783) Negative Negative PHENCYCLIDINE SCREEN URINE (BEAKER) (test ofei=241) Negative Negative OXYCODONE SCREEN URINE (BEAKER) (test ingw=5386) Negative Negative DRUG CUTOFF CONC.Cocaine 300 ng/mL Cannabinoid 50 ng/mL Benzodiazepine 200 ng/mLBarbiturate 200 ng/ mLPhencyclidine 25 ng/mLOpiate 300 ng/mLMethadone 300 ng/mLAmphetamine/ 1000 ng/mL MethamphetamineOxycodone 300 ng/mLThis assay provides an unconfirmed qualitative test result for the clinical management of patients in emergency situations. Chain of custody not maintained. Some taym-bvd-lweswpk medications, as well as adulterants, may cause inaccurate results. Clinical correlation should be applied. A more comprehensive drug screen or confirmation of a detected drug may be performed upon request.MR, ABDOMEN, [id number] 13:52:00FINAL REPORT MRI of the abdomen with [...] Verified Date/Time: 09/05/2017 13:52:35 Reading Location: [facility] [id number] CT BodyReading Room CBC W/PLT COUNT & AUTO [id number] 05:46:00 Test Item Value Reference Range Comments WHITE BLOOD CELL COUNT (BEAKER) (test zxsg=860) 4.7 K/ L 3.5-10.5 RED BLOOD CELL COUNT (BEAKER) (test errh=126) 2.49 M/ L 4.63-6.08 HEMOGLOBIN (BEAKER) (test tvyc=199) 7.9 GM/DL 13.7-17.5 HEMATOCRIT (BEAKER) (test etis=742) 22.6 % 40.1-51.0 MEAN CORPUSCULAR VOLUME (BEAKER) (test lula=941) 90.8 fL 79.0-92.2 MEAN CORPUSCULAR HEMOGLOBIN (BEAKER) (test 31.7 pg 25.7-32.2 vnpz=784) MEAN CORPUSCULAR HEMOGLOBIN CONC (BEAKER) (test 35.0 GM/DL 32.3-36.5 frju=852) RED CELL DISTRIBUTION WIDTH (BEAKER) (test 18.8 % 11.6-14.4 orga=273) PLATELET COUNT (BEAKER) (test airt=925) 60 K/CU MM 150-450 MEAN PLATELET VOLUME (BEAKER) (test ziwf=327) 9.2 fL 9.4-12.4 NUCLEATED RED BLOOD CELLS (BEAKER) (test 0 /100 WBC 0-0 tzod=221) NEUTROPHILS RELATIVE PERCENT (BEAKER) (test 65 % vfwc=223) LYMPHOCYTES RELATIVE PERCENT (BEAKER) (test 13 % edvk=456) MONOCYTES RELATIVE PERCENT (BEAKER) (test 15 % ehrf=869) EOSINOPHILS RELATIVE PERCENT (BEAKER) (test 6 % lptx=210) BASOPHILS RELATIVE PERCENT (BEAKER) (test 0 % awph=186) NEUTROPHILS ABSOLUTE COUNT (BEAKER) (test 3.05 K/ L 1.78-5.38 tpap=568) LYMPHOCYTES ABSOLUTE COUNT (BEAKER) (test 0.62 K/ L 1.32-3.57 zubl=874) MONOCYTES ABSOLUTE COUNT (BEAKER) (test arkm=672) 0.68 K/ L 0.30-0.82 EOSINOPHILS ABSOLUTE COUNT (BEAKER) (test 0.28 K/ L 0.04-0.54 wvwo=379) BASOPHILS ABSOLUTE COUNT (BEAKER) (test wqgm=081) 0.02 K/ L 0.01-0.08 IMMATURE GRANULOCYTES-RELATIVE PERCENT (BEAKER) 1 % 0-1 (test hewr=9828) BASIC METABOLIC [id number] 05:44:00 Test Item Value Reference Range Comments SODIUM (BEAKER) (test 127 meq/L 136-145 jydy=049) POTASSIUM (BEAKER) (test 4.5 meq/L 3.5-5.1 zdbz=781) CHLORIDE (BEAKER) (test 101 meq/L 98-107 xfgi=291) CO2 (BEAKER) (test 19 meq/L 22-29 uqhq=149) BLOOD UREA NITROGEN 17 mg/dL 7-21 (BEAKER) (test dasz=441) CREATININE (BEAKER) (test 0.91 mg/dL 0.57-1.25 cewc=582) GLUCOSE RANDOM (BEAKER) 107 mg/dL 70-105 (test efzm=117) CALCIUM (BEAKER) (test 9.4 mg/dL 8.4-10.2 ozoj=375) EGFR (BEAKER) (test 87 mL/min/1.73 sq m ESTIMATED GFR IS NOT soke=9107) ACCURATE CREATININE CLEARANCE IN PREDICTING GLOMERULAR FILTRATION RATE. ESTIMATED GFR IS NOT APPLICABLE FOR DIALYSIS PATIENTS. Specimen moderately ictericHEPATIC FUNCTION [id number] 05:44:00 Test Item Value Reference Range Comments TOTAL PROTEIN (BEAKER) (test ruwm=736) 5.6 gm/dL 6.0-8.3 ALBUMIN (BEAKER) (test ynfs=3235) 3.3 g/dL 3.5-5.0 BILIRUBIN TOTAL (BEAKER) (test yhcj=917) 10.3 mg/dL 0.2-1.2 BILIRUBIN DIRECT (BEAKER) (test xvcn=011) 6.8 mg/dL 0.1-0.5 ALKALINE PHOSPHATASE (BEAKER) (test jpvw=273) 103 U/L 40-150 AST (SGOT) (BEAKER) (test vikv=596) 17 U/L 5-34 ALT (SGPT) (BEAKER) (test unej=324) 8 U/L 6-55 Specimen moderately ictericPT/[id number] 05:31:00 Test Item Value Reference Range Comments PROTIME (BEAKER) (test nipm=115) 25.6 seconds 11.7-14.7 INR (BEAKER) (test suzf=407) 2.3 <=5.9 PARTIAL THROMBOPLASTIN TIME (BEAKER) (test 51.6 seconds 22.5-36.0 gpis=552) RECOMMENDED COUMADIN/WARFARIN INR THERAPY RANGESSTANDARD DOSE: 2.0 - 3.0 Includes: PROPHYLAXIS forvenous thrombosis, systemic embolization; TREATMENT for venous thrombosis and/or pulmonary embolus.HIGH RISK: Target INR is 2.5-3.5 for patients with mechanical heart valves.PROTHROMBIN TIME/[id number] 05:30: 00 Test Item Value Reference Range Comments PROTIME (BEAKER) (test uldp=671) 25.6 seconds 11.7-14.7 INR (BEAKER) (test rkao=016) 2.3 <=5.9 RECOMMENDED COUMADIN/WARFARIN INR THERAPY RANGESSTANDARD DOSE: 2.0 - 3.0 Includes: PROPHYLAXIS forvenous thrombosis, systemic embolization; TREATMENT for venous thrombosis and/or pulmonary embolus.HIGH RISK: Target INR is 2.5-3.5 for patients with mechanical heart valves.BODY FLUID CELL COUNT WITH [id number] 19:30:00 Test Item Value Reference Range Comments APPEARANCE FLUID (BEAKER) (test dmzd=197) Slightly Hazy Clear COLOR FLUID (BEAKER) (test gklo=472) Yellow Colorless, Straw RBC FLUID (BEAKER) (test accn=790) 100 /cu mm <=1 ADJUSTED WBC FLUID (BEAKER) (test hdtq=4443) 36 /cu mm <=5 LINING CELLS (BEAKER) (test szup=7296) 4 /cu mm <=1 NEUTROPHILS FLUID (BEAKER) (test omlw=6331) 0 % LYMPHS FLUID (BEAKER) (test kjwi=394) 20 % MONO/MACROPHAGE FLUID (BEAKER) (test 80 % buzi=497) EOSINOPHILS FLUID (BEAKER) (test oeyz=982) 0 % BASO FLUID (BEAKER) (test nxzp=067) 0 % CONTAINER BODY FLUID (BEAKER) (test EDTA Tube dtyu=1744) U/S, [id number] 16:21:00Reason for exam:->ascitesShould this be performed at the bedside?->NoFINAL REPORT PROCEDURE: Ultrasound-guided paracentesis. INDICATION: 52-year-old man with ascites. DESCRIPTION: After obtaining informed written consent, ultrasound scan of the abdomen identified ascites in the right lower quadrant. The overlying skin was prepped and draped in the usual, sterile fashion and local 1% lidocaine anesthesia was administered. A 5 Thai catheter was advanced into the peritoneal cavity and 13,200 cc of cloudy yellow fluid was removed. The catheter was removed without immediate complication. Samples were sent for analysis. IMPRESSION:Uncomplicated ultrasound-guided paracentesis with 13,200 cc fluid removed. [facility]: [facility] Verified Date/Time: 2016 16:21:22 Reading Location: [address] Ultrasound Reading Room [facility] METABOLIC [id number] 11:07:00 Test Item Value Reference Range Comments SODIUM (BEAKER) (test 127 meq/L 136-145 xqnq=121) POTASSIUM (BEAKER) (test 4.1 meq/L 3.5-5.1 axch=943) CHLORIDE (BEAKER) (test 101 meq/L 98-107 mqgz=959) CO2 (BEAKER) (test 23 meq/L 22-29 dkym=247) BLOOD UREA NITROGEN 17 mg/dL 7-21 (BEAKER) (test nkih=227) CREATININE (BEAKER) (test 1.06 mg/dL 0.57-1.25 ypax=686) GLUCOSE RANDOM (BEAKER) 104 mg/dL 70-105 (test emhj=208) CALCIUM (BEAKER) (test 8.9 mg/dL 8.4-10.2 tlbq=576) EGFR (BEAKER) (test 73 mL/min/1.73 sq m ESTIMATED GFR IS NOT xzvs=7915) ACCURATE CREATININE CLEARANCE IN PREDICTING GLOMERULAR FILTRATION RATE. ESTIMATED GFR IS NOT APPLICABLE FOR DIALYSIS PATIENTS. Specimen markedly ictericHEPATIC FUNCTION [id number] 11:07:00 Test Item Value Reference Range Comments TOTAL PROTEIN (BEAKER) (test xfkn=139) 5.4 gm/dL 6.0-8.3 ALBUMIN (BEAKER) (test qtqw=2907) 2.8 g/dL 3.5-5.0 BILIRUBIN TOTAL (BEAKER) (test pkzs=609) 12.7 mg/dL 0.2-1.2 BILIRUBIN DIRECT (BEAKER) (test oiit=164) 7.8 mg/dL 0.1-0.5 ALKALINE PHOSPHATASE (BEAKER) (test kjft=921) 90 U/L 40-150 AST (SGOT) (BEAKER) (test tymb=537) 22 U/L 5-34 ALT (SGPT) (BEAKER) (test puua=578) 11 U/L 6-55 Specimen markedly ictericPT/[id number] 11:02:00 Test Item Value Reference Range Comments PROTIME (BEAKER) (test lvml=822) 23.4 seconds 11.7-14.7 INR (BEAKER) (test obwk=654) 2.1 <=5.9 PARTIAL THROMBOPLASTIN TIME (BEAKER) (test 48.7 seconds 22.5-36.0 immx=728) RECOMMENDED COUMADIN/WARFARIN INR THERAPY RANGESSTANDARD DOSE: 2.0 - 3.0 Includes: PROPHYLAXIS forvenous thrombosis, systemic embolization; TREATMENT for venous thrombosis and/or pulmonary embolus.HIGH RISK: Target INR is 2.5-3.5 for patients with mechanical heart valves.PROTHROMBIN TIME/[id number] 11:01: 00 Test Item Value Reference Range Comments PROTIME (BEAKER) (test rvwc=551) 23.4 seconds 11.7-14.7 INR (BEAKER) (test helx=610) 2.1 <=5.9 RECOMMENDED COUMADIN/WARFARIN INR THERAPY RANGESSTANDARD DOSE: 2.0 - 3.0 Includes: PROPHYLAXIS forvenous thrombosis, systemic embolization; TREATMENT for venous thrombosis and/or pulmonary embolus.HIGH RISK: Target INR is 2.5-3.5 for patients with mechanical heart valves.CBC W/PLT COUNT & AUTO [id number] 10:56:00 Test Item Value Reference Range Comments WHITE BLOOD CELL COUNT (BEAKER) (test jsjm=230) 4.4 K/ L 3.5-10.5 RED BLOOD CELL COUNT (BEAKER) (test viph=973) 2.48 M/ L 4.63-6.08 HEMOGLOBIN (BEAKER) (test gsfk=578) 7.8 GM/DL 13.7-17.5 HEMATOCRIT (BEAKER) (test gnpx=890) 22.7 % 40.1-51.0 MEAN CORPUSCULAR VOLUME (BEAKER) (test fwpg=030) 91.5 fL 79.0-92.2 MEAN CORPUSCULAR HEMOGLOBIN (BEAKER) (test 31.5 pg 25.7-32.2 ymxh=235) MEAN CORPUSCULAR HEMOGLOBIN CONC (BEAKER) (test 34.4 GM/DL 32.3-36.5 rogc=911) RED CELL DISTRIBUTION WIDTH (BEAKER) (test 18.6 % 11.6-14.4 unpm=423) PLATELET COUNT (BEAKER) (test lepw=939) 60 K/CU MM 150-450 MEAN PLATELET VOLUME (BEAKER) (test rgks=778) 8.8 fL 9.4-12.4 NUCLEATED RED BLOOD CELLS (BEAKER) (test 0 /100 WBC 0-0 qbst=816) NEUTROPHILS RELATIVE PERCENT (BEAKER) (test 61 % yxjk=726) LYMPHOCYTES RELATIVE PERCENT (BEAKER) (test 9 % yjkk=602) MONOCYTES RELATIVE PERCENT (BEAKER) (test 21 % pgrx=623) EOSINOPHILS RELATIVE PERCENT (BEAKER) (test 8 % cqru=073) BASOPHILS RELATIVE PERCENT (BEAKER) (test 1 % czaa=579) NEUTROPHILS ABSOLUTE COUNT (BEAKER) (test 2.68 K/ L 1.78-5.38 azjj=843) LYMPHOCYTES ABSOLUTE COUNT (BEAKER) (test 0.38 K/ L 1.32-3.57 xtls=911) MONOCYTES ABSOLUTE COUNT (BEAKER) (test engz=668) 0.94 K/ L 0.30-0.82 EOSINOPHILS ABSOLUTE COUNT (BEAKER) (test 0.33 K/ L 0.04-0.54 gvlt=945) BASOPHILS ABSOLUTE COUNT (BEAKER) (test dnkn=696) 0.02 K/ L 0.01-0.08 IMMATURE GRANULOCYTES-RELATIVE PERCENT (BEAKER) 1 % 0-1 (test sbbb=7639) URINALYSIS W/ [id number] 06:18:00 Test Item Value Reference Range Comments COLOR (BEAKER) (test vwzi=787) Dark Yellow CLARITY (BEAKER) (test qxuz=536) Clear SPECIFIC GRAVITY UA (BEAKER) (test clxj=739) 1.008 1.001-1.035 PH UA (BEAKER) (test lpyb=137) 6.0 5.0-8.0 PROTEIN UA (BEAKER) (test ixsj=455) Negative Negative GLUCOSE UA (BEAKER) (test hlwq=404) Negative Negative KETONES UA (BEAKER) (test neag=358) Negative Negative BILIRUBIN UA (BEAKER) (test narl=152) Positive Negative BLOOD UA (BEAKER) (test enzs=796) Moderate Negative NITRITE UA (BEAKER) (test culp=904) Negative Negative LEUKOCYTE ESTERASE UA (BEAKER) (test yqwl=173) Negative Negative UROBILINOGEN UA (BEAKER) (test yccd=391) 0.2 mg/dL 0.2-1.0 RBC UA (BEAKER) (test uzjp=714) 80 /HPF WBC UA (BEAKER) (test akiy=098) 10 /HPF HYALINE CASTS (BEAKER) (test gwwv=651) 5 /LPF AMORPHOUS CRYSTALS (BEAKER) (test ranm=7212) Rare SOURCE(BEAKER) (test zsxx=5828) CBC W/PLT COUNT & AUTO [id number] 00:00:00 Test Item Value Reference Range Comments WHITE BLOOD CELL COUNT (BEAKER) (test wslr=807) 3.7 K/ L 3.5-10.5 RED BLOOD CELL COUNT (BEAKER) (test pmwv=636) 2.20 M/ L 4.63-6.08 HEMOGLOBIN (BEAKER) (test ccsp=329) 7.0 GM/DL 13.7-17.5 HEMATOCRIT (BEAKER) (test sijy=511) 20.2 % 40.1-51.0 MEAN CORPUSCULAR VOLUME (BEAKER) (test kmtf=314) 91.8 fL 79.0-92.2 MEAN CORPUSCULAR HEMOGLOBIN (BEAKER) (test 31.8 pg 25.7-32.2 dzqj=448) MEAN CORPUSCULAR HEMOGLOBIN CONC (BEAKER) (test 34.7 GM/DL 32.3-36.5 xsyt=977) RED CELL DISTRIBUTION WIDTH (BEAKER) (test 19.3 % 11.6-14.4 ufbs=747) PLATELET COUNT (BEAKER) (test deel=644) 63 K/CU MM 150-450 MEAN PLATELET VOLUME (BEAKER) (test ntdj=668) 9.1 fL 9.4-12.4 NUCLEATED RED BLOOD CELLS (BEAKER) (test 0 /100 WBC 0-0 liiz=585) NEUTROPHILS RELATIVE PERCENT (BEAKER) (test 62 % bskf=633) LYMPHOCYTES RELATIVE PERCENT (BEAKER) (test 11 % apdz=924) MONOCYTES RELATIVE PERCENT (BEAKER) (test 19 % sksx=120) EOSINOPHILS RELATIVE PERCENT (BEAKER) (test 7 % ppjx=608) BASOPHILS RELATIVE PERCENT (BEAKER) (test 1 % ccrd=103) NEUTROPHILS ABSOLUTE COUNT (BEAKER) (test 2.29 K/ L 1.78-5.38 hxea=590) LYMPHOCYTES ABSOLUTE COUNT (BEAKER) (test 0.39 K/ L 1.32-3.57 rhax=165) MONOCYTES ABSOLUTE COUNT (BEAKER) (test qvao=645) 0.71 K/ L 0.30-0.82 EOSINOPHILS ABSOLUTE COUNT (BEAKER) (test 0.27 K/ L 0.04-0.54 apah=675) BASOPHILS ABSOLUTE COUNT (BEAKER) (test pnxo=767) 0.02 K/ L 0.01-0.08 IMMATURE GRANULOCYTES-RELATIVE PERCENT (BEAKER) 1 % 0-1 (test mpxe=2771) PROTHROMBIN [id number] 22:52:00 Test Item Value Reference Range Comments PROTIME (BEAKER) (test wtex=471) 25.6 seconds 11.7-14.7 INR (BEAKER) (test ffaq=993) 2.3 <=5.9 RECOMMENDED COUMADIN/WARFARIN INR THERAPY RANGESSTANDARD DOSE: 2.0 - 3.0 Includes: PROPHYLAXIS forvenous thrombosis, systemic embolization; TREATMENT for venous thrombosis and/or pulmonary embolus.HIGH RISK: Target INR is 2.5-3.5 for patients with mechanical heart valves.[id number] 22:52:00 Test Item Value Reference Range Comments MAGNESIUM (BEAKER) (test mcwg=270) 1.3 mg/dL 1.6-2.6 BASIC METABOLIC [id number] 22:52:00 Test Item Value Reference Range Comments SODIUM (BEAKER) (test 124 meq/L 136-145 jmnd=103) POTASSIUM (BEAKER) (test 4.1 meq/L 3.5-5.1 zjjq=532) CHLORIDE (BEAKER) (test 99 meq/L 98-107 urdu=313) CO2 (BEAKER) (test 18 meq/L 22-29 qjhk=871) BLOOD UREA NITROGEN 16 mg/dL 7-21 (BEAKER) (test uioi=290) CREATININE (BEAKER) (test 0.97 mg/dL 0.57-1.25 zpmh=252) GLUCOSE RANDOM (BEAKER) 99 mg/dL 70-105 (test asiz=436) CALCIUM (BEAKER) (test 8.7 mg/dL 8.4-10.2 vqia=739) EGFR (BEAKER) (test 81 mL/min/1.73 sq m ESTIMATED GFR IS NOT bxoo=7211) ACCURATE CREATININE CLEARANCE IN PREDICTING GLOMERULAR FILTRATION RATE. ESTIMATED GFR IS NOT APPLICABLE FOR DIALYSIS PATIENTS. Specimen markedly ictericHEPATIC FUNCTION [id number] 22:52:00 Test Item Value Reference Range Comments TOTAL PROTEIN (BEAKER) (test anlf=864) 5.3 gm/dL 6.0-8.3 ALBUMIN (BEAKER) (test lkjs=8467) 2.8 g/dL 3.5-5.0 BILIRUBIN TOTAL (BEAKER) (test mvzf=517) 12.7 mg/dL 0.2-1.2 BILIRUBIN DIRECT (BEAKER) (test wzhy=007) 7.6 mg/dL 0.1-0.5 ALKALINE PHOSPHATASE (BEAKER) (test lgap=492) 93 U/L 40-150 AST (SGOT) (BEAKER) (test tdwd=782) 21 U/L 5-34 ALT (SGPT) (BEAKER) (test ltxq=019) 9 U/L 6-55 Specimen markedly ictericALPHA FETOPROTEIN (AFP), TUMOR [id number] 16:39: 00 Test Item Value Reference Range Comments ALPHA-FETOPROTEIN (BEAKER) (test zfch=0960) 2.5 ng/mL <10.0 BASIC METABOLIC [id number] 15:53:00 Test Item Value Reference Range Comments SODIUM (BEAKER) (test 126 meq/L 136-145 zmhs=096) POTASSIUM (BEAKER) (test 5.1 meq/L 3.5-5.1 uebz=794) CHLORIDE (BEAKER) (test 101 meq/L 98-107 zaco=058) CO2 (BEAKER) (test 19 meq/L 22-29 lajw=430) BLOOD UREA NITROGEN 14 mg/dL 7-21 (BEAKER) (test minb=254) CREATININE (BEAKER) (test 1.01 mg/dL 0.57-1.25 npjk=937) GLUCOSE RANDOM (BEAKER) 104 mg/dL 70-105 (test oxdk=909) CALCIUM (BEAKER) (test 9.0 mg/dL 8.4-10.2 saym=844) EGFR (BEAKER) (test 78 mL/min/1.73 sq m ESTIMATED GFR IS NOT dcwz=9078) ACCURATE CREATININE CLEARANCE IN PREDICTING GLOMERULAR FILTRATION RATE. ESTIMATED GFR IS NOT APPLICABLE FOR DIALYSIS PATIENTS. Specimen moderately ictericHEPATIC FUNCTION [id number] 15:53:00 Test Item Value Reference Range Comments TOTAL PROTEIN (BEAKER) (test rhbn=051) 6.1 gm/dL 6.0-8.3 ALBUMIN (BEAKER) (test grwa=6573) 2.6 g/dL 3.5-5.0 BILIRUBIN TOTAL (BEAKER) (test udsd=902) 10.4 mg/dL 0.2-1.2 BILIRUBIN DIRECT (BEAKER) (test lcac=878) 7.5 mg/dL 0.1-0.5 ALKALINE PHOSPHATASE (BEAKER) (test yacb=670) 124 U/L 40-150 AST (SGOT) (BEAKER) (test axta=221) 29 U/L 5-34 ALT (SGPT) (BEAKER) (test xajq=395) 12 U/L 6-55 Specimen moderately ictericGAMMA GLUTAMYL TRANSFERASE (GGT)[id number] 15:53:00 Test Item Value Reference Range Comments GAMMA GLUTAMYL TRANSFERASE (BEAKER) (test hzes=206) 17 U/L 9-64 Specimen moderately ictericPROTHROMBIN TIME/[id number] 15:40:00 Test Item Value Reference Range Comments PROTIME (BEAKER) (test uacm=675) 22.6 seconds 11.7-14.7 INR (BEAKER) (test eked=971) 2.0 <=5.9 RECOMMENDED COUMADIN/WARFARIN INR THERAPY RANGESSTANDARD DOSE: 2.0 - 3.0 Includes: PROPHYLAXIS forvenous thrombosis, systemic embolization; TREATMENT for venous thrombosis and/or pulmonary embolus.HIGH RISK: Target INR is 2.5-3.5 for patients with mechanical heart valves.CBC W/PLT COUNT & AUTO [id number] 15:38:00 Test Item Value Reference Range Comments WHITE BLOOD CELL COUNT (BEAKER) (test bnth=011) 7.3 K/ L 3.5-10.5 RED BLOOD CELL COUNT (BEAKER) (test evmk=602) 2.78 M/ L 4.63-6.08 HEMOGLOBIN (BEAKER) (test sotz=274) 9.1 GM/DL 13.7-17.5 HEMATOCRIT (BEAKER) (test yuml=605) 27.3 % 40.1-51.0 MEAN CORPUSCULAR VOLUME (BEAKER) (test mqzs=811) 98.2 fL 79.0-92.2 MEAN CORPUSCULAR HEMOGLOBIN (BEAKER) (test 32.7 pg 25.7-32.2 pqup=569) MEAN CORPUSCULAR HEMOGLOBIN CONC (BEAKER) (test 33.3 GM/DL 32.3-36.5 pcww=853) RED CELL DISTRIBUTION WIDTH (BEAKER) (test 16.4 % 11.6-14.4 dflq=884) PLATELET COUNT (BEAKER) (test sfjc=559) 71 K/CU MM 150-450 MEAN PLATELET VOLUME (BEAKER) (test haom=973) 9.1 fL 9.4-12.4 NUCLEATED RED BLOOD CELLS (BEAKER) (test 0 /100 WBC 0-0 shli=916) NEUTROPHILS RELATIVE PERCENT (BEAKER) (test 71 % lkay=484) LYMPHOCYTES RELATIVE PERCENT (BEAKER) (test 8 % qlhd=879) MONOCYTES RELATIVE PERCENT (BEAKER) (test 15 % dwxn=399) EOSINOPHILS RELATIVE PERCENT (BEAKER) (test 5 % jzsg=544) BASOPHILS RELATIVE PERCENT (BEAKER) (test 0 % wric=925) NEUTROPHILS ABSOLUTE COUNT (BEAKER) (test 5.13 K/ L 1.78-5.38 yqco=956) LYMPHOCYTES ABSOLUTE COUNT (BEAKER) (test 0.59 K/ L 1.32-3.57 gxzx=727) MONOCYTES ABSOLUTE COUNT (BEAKER) (test wzqu=478) 1.06 K/ L 0.30-0.82 EOSINOPHILS ABSOLUTE COUNT (BEAKER) (test 0.33 K/ L 0.04-0.54 suaa=539) BASOPHILS ABSOLUTE COUNT (BEAKER) (test sonn=099) 0.03 K/ L 0.01-0.08 IMMATURE GRANULOCYTES-RELATIVE PERCENT (BEAKER) 2 % 0-1 (test bswz=6168) FUNGUS CULTURE + [id number] 07:22:00 Test Item Value Reference Range Comments CULTURE (BEAKER) (test No fungus isolated in 28 days xkxj=1110) FUNGUS SMEAR (BEAKER) (test No fungi seen stgj=6810) HISTOPLASMA ANTIGEN, [id number] 08:01:00 Test Item Value Reference Range Comments SCAN RESULT (test mntz=[id number]) TISSUE [id number] 10:58:00 Test Item Value Reference Range Comments LAB AP CPT CODE (BEAKER) (test cpzn=9242) 24921 BLOOD [id number] 16:15:00 Test Item Value Reference Range Comments CULTURE (BEAKER) (test oxum=1648) No growth in 5 days BLOOD [id number] 16:15:00 Test Item Value Reference Range Comments CULTURE (BEAKER) (test pisp=5622) No growth in 5 days [id number] 06:54:00 Test Item Value Reference Range Comments PHOSPHORUS (BEAKER) (test aoos=167) 3.3 mg/dL 2.3-4.7 [id number] 06:54:00 Test Item Value Reference Range Comments MAGNESIUM (BEAKER) (test rstj=575) 1.2 mg/dL 1.6-2.6 BASIC METABOLIC [id number] 06:54:00 Test Item Value Reference Range Comments SODIUM (BEAKER) (test 133 meq/L 136-145 gztk=825) POTASSIUM (BEAKER) (test 3.6 meq/L 3.5-5.1 jnak=049) CHLORIDE (BEAKER) (test 108 meq/L 98-107 zyho=612) CO2 (BEAKER) (test 17 meq/L 22-29 noha=171) BLOOD UREA NITROGEN 13 mg/dL 7-21 (BEAKER) (test zdtb=602) CREATININE (BEAKER) (test 1.16 mg/dL 0.57-1.25 wfxb=484) GLUCOSE RANDOM (BEAKER) 82 mg/dL 70-105 (test dzyl=943) CALCIUM (BEAKER) (test 8.0 mg/dL 8.4-10.2 fxwc=495) EGFR (BEAKER) (test 66 mL/min/1.73 sq m ESTIMATED GFR IS NOT atxs=6183) ACCURATE CREATININE CLEARANCE IN PREDICTING GLOMERULAR FILTRATION RATE. ESTIMATED GFR IS NOT APPLICABLE FOR DIALYSIS PATIENTS. Specimen moderately ictericHEPATIC FUNCTION [id number] 06:54:00 Test Item Value Reference Range Comments TOTAL PROTEIN (BEAKER) (test brmd=120) 5.7 gm/dL 6.0-8.3 ALBUMIN (BEAKER) (test epbb=1426) 3.1 g/dL 3.5-5.0 BILIRUBIN TOTAL (BEAKER) (test asqn=485) 5.2 mg/dL 0.2-1.2 BILIRUBIN DIRECT (BEAKER) (test wmby=182) 2.6 mg/dL 0.1-0.5 ALKALINE PHOSPHATASE (BEAKER) (test inoz=747) 55 U/L 40-150 AST (SGOT) (BEAKER) (test ckoc=237) 32 U/L 5-34 ALT (SGPT) (BEAKER) (test erom=886) 9 U/L 6-55 Specimen moderately ictericCALCIUM, [id number] 06:30:00 Test Item Value Reference Range Comments CALCIUM IONIZED (BEAKER) (test lmnp=632) 1.00 mmol/L 1.12-1.27 PH, BLOOD (BEAKER) (test wmyw=2437) 7.52 CBC W/PLT COUNT & AUTO [id number] 06:17:00 Test Item Value Reference Range Comments WHITE BLOOD CELL COUNT (BEAKER) (test lldj=319) 4.7 K/ L 4.0-10.0 RED BLOOD CELL COUNT (BEAKER) (test xwll=773) 2.05 M/ L 4.20-5.80 HEMOGLOBIN (BEAKER) (test orgs=392) 7.1 GM/DL 13.0-16.8 HEMATOCRIT (BEAKER) (test ocvn=582) 21.1 % 40.0-50.0 MEAN CORPUSCULAR VOLUME (BEAKER) (test ttzy=612) 103.0 fL 82.0-98.0 MEAN CORPUSCULAR HEMOGLOBIN (BEAKER) (test 34.8 pg 27.0-33.0 pikx=312) MEAN CORPUSCULAR HEMOGLOBIN CONC (BEAKER) (test 33.8 GM/DL 32.0-36.0 unvq=421) RED CELL DISTRIBUTION WIDTH (BEAKER) (test 13.9 % 10.3-14.2 yvph=747) PLATELET COUNT (BEAKER) (test jqbj=405) 71 K/CU MM 150-430 MEAN PLATELET VOLUME (BEAKER) (test grox=073) 6.6 fL 6.5-10.5 NUCLEATED RED BLOOD CELLS (BEAKER) (test 0 /100 WBC 0-0 apye=258) NEUTROPHILS RELATIVE PERCENT (BEAKER) (test 68 % lomy=387) LYMPHOCYTES RELATIVE PERCENT (BEAKER) (test 16 % zrai=687) MONOCYTES RELATIVE PERCENT (BEAKER) (test 12 % wbyb=959) EOSINOPHILS RELATIVE PERCENT (BEAKER) (test 4 % bwqf=156) BASOPHILS RELATIVE PERCENT (BEAKER) (test 1 % xccn=522) NEUTROPHILS ABSOLUTE COUNT (BEAKER) (test 3.21 K/ L 1.80-8.00 pdyv=218) LYMPHOCYTES ABSOLUTE COUNT (BEAKER) (test 0.75 K/ L 1.48-4.50 ybod=786) MONOCYTES ABSOLUTE COUNT (BEAKER) (test txqq=224) 0.57 K/ L 0.00-1.30 EOSINOPHILS ABSOLUTE COUNT (BEAKER) (test 0.19 K/ L 0.00-0.50 bhog=384) BASOPHILS ABSOLUTE COUNT (BEAKER) (test zamy=002) 0.03 K/ L 0.00-0.20 0.00PROTHROMBIN [id number] 05:56:00 Test Item Value Reference Range Comments PROTIME (BEAKER) (test hzqd=557) 26.4 seconds 11.7-14.7 INR (BEAKER) (test azrx=875) 2.4 <=5.9 RECOMMENDED COUMADIN/WARFARIN INR THERAPY RANGESSTANDARD DOSE: 2.0 - 3.0 Includes: PROPHYLAXIS forvenous thrombosis, systemic embolization; TREATMENT for venous thrombosis and/or pulmonary embolus.HIGH RISK: Target INR is 2.5-3.5 for patients with mechanical heart valves.BASIC METABOLIC [id number] 04:44: 00 Test Item Value Reference Range Comments SODIUM (BEAKER) (test 134 meq/L 136-145 gctv=810) POTASSIUM (BEAKER) (test 3.6 meq/L 3.5-5.1 wzdj=349) CHLORIDE (BEAKER) (test 108 meq/L 98-107 iwnl=141) CO2 (BEAKER) (test 19 meq/L 22-29 dfxr=441) BLOOD UREA NITROGEN 12 mg/dL 7-21 (BEAKER) (test qsxb=033) CREATININE (BEAKER) (test 1.32 mg/dL 0.57-1.25 qnrz=321) GLUCOSE RANDOM (BEAKER) 82 mg/dL 70-105 (test dbtp=846) CALCIUM (BEAKER) (test 7.9 mg/dL 8.4-10.2 yqyv=793) EGFR (BEAKER) (test 57 mL/min/1.73 sq m ESTIMATED GFR IS NOT brmp=5962) ACCURATE CREATININE CLEARANCE IN PREDICTING GLOMERULAR FILTRATION RATE. ESTIMATED GFR IS NOT APPLICABLE FOR DIALYSIS PATIENTS. Specimen moderately ictericHEPATIC FUNCTION [id number] 04:42:00 Test Item Value Reference Range Comments TOTAL PROTEIN (BEAKER) (test ofjd=764) 5.8 gm/dL 6.0-8.3 ALBUMIN (BEAKER) (test xdyc=1529) 3.1 g/dL 3.5-5.0 BILIRUBIN TOTAL (BEAKER) (test lxop=486) 5.1 mg/dL 0.2-1.2 BILIRUBIN DIRECT (BEAKER) (test xtsl=715) 2.7 mg/dL 0.1-0.5 ALKALINE PHOSPHATASE (BEAKER) (test hlvb=059) 51 U/L 40-150 AST (SGOT) (BEAKER) (test nuta=307) 27 U/L 5-34 ALT (SGPT) (BEAKER) (test hqjb=559) 7 U/L 6-55 Specimen moderately ictericCBC W/PLT COUNT & AUTO [id number] 04: 35:00 Test Item Value Reference Range Comments WHITE BLOOD CELL COUNT (BEAKER) (test xpol=343) 4.6 K/ L 4.0-10.0 RED BLOOD CELL COUNT (BEAKER) (test rjss=352) 2.06 M/ L 4.20-5.80 HEMOGLOBIN (BEAKER) (test iqzv=304) 7.2 GM/DL 13.0-16.8 HEMATOCRIT (BEAKER) (test nrtv=697) 21.5 % 40.0-50.0 MEAN CORPUSCULAR VOLUME (BEAKER) (test mujp=752) 104.0 fL 82.0-98.0 MEAN CORPUSCULAR HEMOGLOBIN (BEAKER) (test 35.0 pg 27.0-33.0 qcpv=447) MEAN CORPUSCULAR HEMOGLOBIN CONC (BEAKER) (test 33.6 GM/DL 32.0-36.0 jdgt=772) RED CELL DISTRIBUTION WIDTH (BEAKER) (test 13.4 % 10.3-14.2 viuq=373) PLATELET COUNT (BEAKER) (test walu=623) 76 K/CU MM 150-430 MEAN PLATELET VOLUME (BEAKER) (test ffan=242) 6.5 fL 6.5-10.5 NUCLEATED RED BLOOD CELLS (BEAKER) (test 0 /100 WBC 0-0 msjf=443) NEUTROPHILS RELATIVE PERCENT (BEAKER) (test 64 % pzvp=169) LYMPHOCYTES RELATIVE PERCENT (BEAKER) (test 16 % ovwf=053) MONOCYTES RELATIVE PERCENT (BEAKER) (test 16 % qjbr=381) EOSINOPHILS RELATIVE PERCENT (BEAKER) (test 4 % efwx=265) BASOPHILS RELATIVE PERCENT (BEAKER) (test 1 % ptip=435) NEUTROPHILS ABSOLUTE COUNT (BEAKER) (test 2.89 K/ L 1.80-8.00 tewo=813) LYMPHOCYTES ABSOLUTE COUNT (BEAKER) (test 0.72 K/ L 1.48-4.50 nomc=769) MONOCYTES ABSOLUTE COUNT (BEAKER) (test rafz=916) 0.71 K/ L 0.00-1.30 EOSINOPHILS ABSOLUTE COUNT (BEAKER) (test 0.20 K/ L 0.00-0.50 phxq=174) BASOPHILS ABSOLUTE COUNT (BEAKER) (test ngkg=288) 0.03 K/ L 0.00-0.20 0.00PROTHROMBIN [id number] 04:33:00 Test Item Value Reference Range Comments PROTIME (BEAKER) (test dgzj=853) 30.2 seconds 11.7-14.7 INR (BEAKER) (test tqaj=894) 2.9 <=5.9 RECOMMENDED COUMADIN/WARFARIN INR THERAPY RANGESSTANDARD DOSE: 2.0 - 3.0 Includes: PROPHYLAXIS forvenous thrombosis, systemic embolization; TREATMENT for venous thrombosis and/or pulmonary embolus.HIGH RISK: Target INR is 2.5-3.5 for patients with mechanical heart valves.VANCOMYCIN LEVEL, [id number] 17: 04:00 Test Item Value Reference Range Comments VANCOMYCIN TROUGH (BEAKER) (test pxzp=587) 12.2 ug/mL 10.0-20.0 URINE [id number] 14:25:00 Test Item Value Reference Range Comments CULTURE (BEAKER) (test pyyd=5523) No growth TSH/FREE T4 IF [id number] 14:22:00 Test Item Value Reference Range Comments THYROID STIMULATING HORMONE (BEAKER) (test 3.53 uIU/mL 0.35-4.94 oodz=291) URINE [id number] 11:43:00 Test Item Value Reference Range Comments CULTURE (BEAKER) (test fdtz=4046) No growth CBC W/PLT COUNT & AUTO [id number] 07:55:00 Test Item Value Reference Range Comments WHITE BLOOD CELL COUNT (BEAKER) (test ygqj=570) 4.5 K/ L 4.0-10.0 RED BLOOD CELL COUNT (BEAKER) (test ctbz=020) 2.06 M/ L 4.20-5.80 HEMOGLOBIN (BEAKER) (test fkbt=016) 7.1 GM/DL 13.0-16.8 HEMATOCRIT (BEAKER) (test faor=408) 21.5 % 40.0-50.0 MEAN CORPUSCULAR VOLUME (BEAKER) (test segf=268) 104.0 fL 82.0-98.0 MEAN CORPUSCULAR HEMOGLOBIN (BEAKER) (test 34.5 pg 27.0-33.0 xghw=421) MEAN CORPUSCULAR HEMOGLOBIN CONC (BEAKER) (test 33.1 GM/DL 32.0-36.0 jrtk=963) RED CELL DISTRIBUTION WIDTH (BEAKER) (test 13.4 % 10.3-14.2 uixi=100) PLATELET COUNT (BEAKER) (test tays=223) 79 K/CU MM 150-430 MEAN PLATELET VOLUME (BEAKER) (test icli=728) 6.8 fL 6.5-10.5 NUCLEATED RED BLOOD CELLS (BEAKER) (test 0 /100 WBC 0-0 cbdi=481) NEUTROPHILS RELATIVE PERCENT (BEAKER) (test 64 % pzkm=376) LYMPHOCYTES RELATIVE PERCENT (BEAKER) (test 16 % wrwr=758) MONOCYTES RELATIVE PERCENT (BEAKER) (test 15 % vnuu=149) EOSINOPHILS RELATIVE PERCENT (BEAKER) (test 5 % xefc=640) BASOPHILS RELATIVE PERCENT (BEAKER) (test 0 % qvae=406) NEUTROPHILS ABSOLUTE COUNT (BEAKER) (test 2.88 K/ L 1.80-8.00 jlzn=245) LYMPHOCYTES ABSOLUTE COUNT (BEAKER) (test 0.73 K/ L 1.48-4.50 tpzq=448) MONOCYTES ABSOLUTE COUNT (BEAKER) (test rqbt=209) 0.68 K/ L 0.00-1.30 EOSINOPHILS ABSOLUTE COUNT (BEAKER) (test 0.23 K/ L 0.00-0.50 este=935) BASOPHILS ABSOLUTE COUNT (BEAKER) (test lzuh=266) 0.02 K/ L 0.00-0.20 0.00BASI METABOLIC [id number] 05:58:00 Test Item Value Reference Range Comments SODIUM (BEAKER) (test 137 meq/L 136-145 czms=274) POTASSIUM (BEAKER) (test 3.7 meq/L 3.5-5.1 qhie=642) CHLORIDE (BEAKER) (test 110 meq/L 98-107 fuwx=054) CO2 (BEAKER) (test 19 meq/L 22-29 qijq=745) BLOOD UREA NITROGEN 12 mg/dL 7-21 (BEAKER) (test dnle=923) CREATININE (BEAKER) (test 1.29 mg/dL 0.57-1.25 gvzm=948) GLUCOSE RANDOM (BEAKER) 80 mg/dL 70-105 (test nyyc=980) CALCIUM (BEAKER) (test 8.1 mg/dL 8.4-10.2 qdkd=811) EGFR (BEAKER) (test 59 mL/min/1.73 sq m ESTIMATED GFR IS NOT hztt=9262) ACCURATE CREATININE CLEARANCE IN PREDICTING GLOMERULAR FILTRATION RATE. ESTIMATED GFR IS NOT APPLICABLE FOR DIALYSIS PATIENTS. Specimen moderately ictericHEPATIC FUNCTION [id number] 05:58:00 Test Item Value Reference Range Comments TOTAL PROTEIN (BEAKER) (test blvw=558) 5.9 gm/dL 6.0-8.3 ALBUMIN (BEAKER) (test xsmb=4248) 3.4 g/dL 3.5-5.0 BILIRUBIN TOTAL (BEAKER) (test kxnj=329) 5.6 mg/dL 0.2-1.2 BILIRUBIN DIRECT (BEAKER) (test gumf=897) 2.6 mg/dL 0.1-0.5 ALKALINE PHOSPHATASE (BEAKER) (test zgad=993) 50 U/L 40-150 AST (SGOT) (BEAKER) (test vahy=387) 30 U/L 5-34 ALT (SGPT) (BEAKER) (test anpg=791) 9 U/L 6-55 Specimen moderately ictericPROTHROMBIN [id number] 05:31:00 Test Item Value Reference Range Comments PROTIME (BEAKER) (test qgdi=480) 29.0 seconds 11.7-14.7 INR (BEAKER) (test xivq=791) 2.7 <=5.9 RECOMMENDED COUMADIN/WARFARIN INR THERAPY RANGESSTANDARD DOSE: 2.0 - 3.0 Includes: PROPHYLAXIS forvenous thrombosis, systemic embolization; TREATMENT for venous thrombosis and/or pulmonary embolus.HIGH RISK: Target INR is 2.5-3.5 for patients with mechanical heart valves.ANAEROBIC [id number] 05:15:00 Test Item Value Reference Range Comments CULTURE (BEAKER) (test ayjg=9575) No anaerobes isolated BLOOD [id number] 00:00:00 Test Item Value Reference Range Comments CULTURE (BEAKER) (test ohly=7453) No growth in 5 days BLOOD [id number] 00:00:00 Test Item Value Reference Range Comments CULTURE (BEAKER) (test eglv=3984) No growth in 5 days URINALYSIS W/ REFLEX URINE [id number] 08:28:00 Test Item Value Reference Range Comments COLOR (BEAKER) (test cbsl=981) Yellow CLARITY (BEAKER) (test wtnx=424) Clear SPECIFIC GRAVITY UA (BEAKER) (test wfww=571) 1.006 1.001-1.035 PH UA (BEAKER) (test qtjh=801) 6.5 5.0-8.0 PROTEIN UA (BEAKER) (test jxaw=216) Negative Negative GLUCOSE UA (BEAKER) (test onzy=927) Negative Negative KETONES UA (BEAKER) (test phve=617) Negative Negative BILIRUBIN UA (BEAKER) (test zvgx=626) Negative Negative BLOOD UA (BEAKER) (test jutl=463) Negative Negative NITRITE UA (BEAKER) (test jfup=437) Negative Negative LEUKOCYTE ESTERASE UA (BEAKER) (test vfge=633) Small Negative UROBILINOGEN UA (BEAKER) (test efyk=300) 0.2 mg/dL 0.2-1.0 RBC UA (BEAKER) (test qvyo=643) 1 /HPF WBC UA (BEAKER) (test wshv=559) 6 /HPF BACTERIA (BEAKER) (test fnom=050) Rare SOURCE(BEAKER) (test qnsv=7450) CBC W/PLT COUNT & AUTO [id number] 07:21:00 Test Item Value Reference Range Comments WHITE BLOOD CELL COUNT (BEAKER) (test ouxm=550) 5.9 K/ L 4.0-10.0 RED BLOOD CELL COUNT (BEAKER) (test vmli=049) 2.12 M/ L 4.20-5.80 HEMOGLOBIN (BEAKER) (test onsk=576) 7.3 GM/DL 13.0-16.8 HEMATOCRIT (BEAKER) (test vqko=648) 22.2 % 40.0-50.0 MEAN CORPUSCULAR VOLUME (BEAKER) (test giyw=556) 105.0 fL 82.0-98.0 MEAN CORPUSCULAR HEMOGLOBIN (BEAKER) (test 34.2 pg 27.0-33.0 irbc=715) MEAN CORPUSCULAR HEMOGLOBIN CONC (BEAKER) (test 32.7 GM/DL 32.0-36.0 xhhe=331) RED CELL DISTRIBUTION WIDTH (BEAKER) (test 13.1 % 10.3-14.2 wolu=286) PLATELET COUNT (BEAKER) (test depj=120) 80 K/CU MM 150-430 MEAN PLATELET VOLUME (BEAKER) (test wnej=483) 6.5 fL 6.5-10.5 NUCLEATED RED BLOOD CELLS (BEAKER) (test 0 /100 WBC 0-0 swjs=149) NEUTROPHILS RELATIVE PERCENT (BEAKER) (test 67 % cnyt=926) LYMPHOCYTES RELATIVE PERCENT (BEAKER) (test 14 % ykno=684) MONOCYTES RELATIVE PERCENT (BEAKER) (test 14 % xeoj=448) EOSINOPHILS RELATIVE PERCENT (BEAKER) (test 4 % sgaz=621) BASOPHILS RELATIVE PERCENT (BEAKER) (test 0 % rqbj=886) NEUTROPHILS ABSOLUTE COUNT (BEAKER) (test 3.97 K/ L 1.80-8.00 maix=925) LYMPHOCYTES ABSOLUTE COUNT (BEAKER) (test 0.85 K/ L 1.48-4.50 trom=209) MONOCYTES ABSOLUTE COUNT (BEAKER) (test jzqc=204) 0.81 K/ L 0.00-1.30 EOSINOPHILS ABSOLUTE COUNT (BEAKER) (test 0.25 K/ L 0.00-0.50 cuiz=051) BASOPHILS ABSOLUTE COUNT (BEAKER) (test xtju=338) 0.03 K/ L 0.00-0.20 [id number] 06:35:00 Test Item Value Reference Range Comments PHOSPHORUS (BEAKER) (test awcm=930) 3.5 mg/dL 2.3-4.7 [id number] 06:35:00 Test Item Value Reference Range Comments MAGNESIUM (BEAKER) (test mywa=104) 1.7 mg/dL 1.6-2.6 BASIC METABOLIC [id number] 06:35:00 Test Item Value Reference Range Comments SODIUM (BEAKER) (test 137 meq/L 136-145 bumj=677) POTASSIUM (BEAKER) (test 4.0 meq/L 3.5-5.1 puky=667) CHLORIDE (BEAKER) (test 109 meq/L 98-107 tdqu=530) CO2 (BEAKER) (test 20 meq/L 22-29 ruey=588) BLOOD UREA NITROGEN 13 mg/dL 7-21 (BEAKER) (test kuxu=470) CREATININE (BEAKER) (test 1.56 mg/dL 0.57-1.25 guar=166) GLUCOSE RANDOM (BEAKER) 85 mg/dL 70-105 (test juwi=299) CALCIUM (BEAKER) (test 8.4 mg/dL 8.4-10.2 qmwy=554) EGFR (BEAKER) (test 47 mL/min/1.73 sq m ESTIMATED GFR IS NOT ngbs=9340) ACCURATE CREATININE CLEARANCE IN PREDICTING GLOMERULAR FILTRATION RATE. ESTIMATED GFR IS NOT APPLICABLE FOR DIALYSIS PATIENTS. Specimen moderately ictericHEPATIC FUNCTION [id number] 06:35:00 Test Item Value Reference Range Comments TOTAL PROTEIN (BEAKER) (test usvc=570) 6.5 gm/dL 6.0-8.3 ALBUMIN (BEAKER) (test sqia=2930) 3.8 g/dL 3.5-5.0 BILIRUBIN TOTAL (BEAKER) (test lrdv=204) 6.1 mg/dL 0.2-1.2 BILIRUBIN DIRECT (BEAKER) (test fsti=902) 2.9 mg/dL 0.1-0.5 ALKALINE PHOSPHATASE (BEAKER) (test vmfg=083) 54 U/L 40-150 AST (SGOT) (BEAKER) (test tboa=402) 28 U/L 5-34 ALT (SGPT) (BEAKER) (test tzoy=520) 7 U/L 6-55 Specimen moderately ictericPROTHROMBIN [id number] 06:06:00 Test Item Value Reference Range Comments PROTIME (BEAKER) (test jpoa=049) 26.1 seconds 11.7-14.7 INR (BEAKER) (test nnsa=949) 2.4 <=5.9 RECOMMENDED COUMADIN/WARFARIN INR THERAPY RANGESSTANDARD DOSE: 2.0 - 3.0 Includes: PROPHYLAXIS forvenous thrombosis, systemic embolization; TREATMENT for venous thrombosis and/or pulmonary embolus.HIGH RISK: Target INR is 2.5-3.5 for patients with mechanical heart valves.CALCIUM, [id number] 06:06:00 Test Item Value Reference Range Comments CALCIUM IONIZED (BEAKER) (test xiii=609) 1.06 mmol/L 1.12-1.27 PH, BLOOD (BEAKER) (test vgos=7561) 7.46 SURGICALLY OBTAINED CULTURE + GRAM [id number] 23:51:00 Test Item Value Reference Range Comments CULTURE (BEAKER) (test lsgw=7097) No growth GRAM STAIN RESULT (BEAKER) (test 1+ WBCs bimr=6465) GRAM STAIN RESULT (BEAKER) (test No organisms seen swob=77802) BODY FLUID CULTURE + GRAM [id number] 23:42:00 Test Item Value Reference Range Comments CULTURE (BEAKER) (test axzv=4886) No growth GRAM STAIN RESULT (BEAKER) (test 1+ WBCs lfqv=7470) GRAM STAIN RESULT (BEAKER) (test No organisms seen jmpc=53358) BODY FLUID CELL COUNT WITH [id number] 19:59:00 Test Item Value Reference Range Comments APPEARANCE FLUID (BEAKER) (test sjlk=603) Hazy Clear COLOR FLUID (BEAKER) (test pwzn=937) Yellow Colorless, Straw RBC FLUID (BEAKER) (test xjhj=860) 2435 /cu mm <=1 ADJUSTED WBC FLUID (BEAKER) (test msoe=3129) 441 /cu mm <=5 LINING CELLS (BEAKER) (test uxvd=4049) 9 /cu mm <=1 NEUTROPHILS FLUID (BEAKER) (test uzjt=4369) 16 % LYMPHS FLUID (BEAKER) (test ckzf=950) 10 % MONO/MACROPHAGE FLUID (BEAKER) (test yamd=613) 74 % EOSINOPHILS FLUID (BEAKER) (test zywc=342) 0 % BASO FLUID (BEAKER) (test megw=581) 0 % CONTAINER BODY FLUID (BEAKER) (test hdxm=6897) EDTA Tube [id number] 11:01:00 Test Item Value Reference Range Comments PROCALCITONIN (BEAKER) (test obhl=3006) 0.25 ng/mL <0.05 SEPSIS RISK (ng/mL)Low: 0.05-0.50Intermediate: 0.51-2.00High: & gt;=2.01CBC W/PLT COUNT & AUTO [id number] 08:40:00 Test Item Value Reference Range Comments WHITE BLOOD CELL COUNT (BEAKER) (test onxg=612) 6.3 K/ L 4.0-10.0 RED BLOOD CELL COUNT (BEAKER) (test jdnj=451) 2.07 M/ L 4.20-5.80 HEMOGLOBIN (BEAKER) (test lnct=596) 7.1 GM/DL 13.0-16.8 HEMATOCRIT (BEAKER) (test glrk=097) 21.9 % 40.0-50.0 MEAN CORPUSCULAR VOLUME (BEAKER) (test rfdg=623) 106.0 fL 82.0-98.0 MEAN CORPUSCULAR HEMOGLOBIN (BEAKER) (test 34.1 pg 27.0-33.0 zilo=639) MEAN CORPUSCULAR HEMOGLOBIN CONC (BEAKER) (test 32.2 GM/DL 32.0-36.0 egwp=206) RED CELL DISTRIBUTION WIDTH (BEAKER) (test 13.1 % 10.3-14.2 yolq=161) PLATELET COUNT (BEAKER) (test hvnf=504) 78 K/CU MM 150-430 MEAN PLATELET VOLUME (BEAKER) (test codh=107) 6.6 fL 6.5-10.5 NUCLEATED RED BLOOD CELLS (BEAKER) (test 0 /100 WBC 0-0 yrgw=093) NEUTROPHILS RELATIVE PERCENT (BEAKER) (test 73 % rlca=858) LYMPHOCYTES RELATIVE PERCENT (BEAKER) (test 10 % qdts=662) MONOCYTES RELATIVE PERCENT (BEAKER) (test 13 % xzgr=318) EOSINOPHILS RELATIVE PERCENT (BEAKER) (test 4 % mfpj=386) BASOPHILS RELATIVE PERCENT (BEAKER) (test 0 % sjev=658) NEUTROPHILS ABSOLUTE COUNT (BEAKER) (test 4.60 K/ L 1.80-8.00 hfzp=255) LYMPHOCYTES ABSOLUTE COUNT (BEAKER) (test 0.64 K/ L 1.48-4.50 vlan=398) MONOCYTES ABSOLUTE COUNT (BEAKER) (test outz=295) 0.81 K/ L 0.00-1.30 EOSINOPHILS ABSOLUTE COUNT (BEAKER) (test 0.23 K/ L 0.00-0.50 suni=117) BASOPHILS ABSOLUTE COUNT (BEAKER) (test prqt=938) 0.01 K/ L 0.00-0.20 [id number] 06:50:00 Test Item Value Reference Range Comments PHOSPHORUS (BEAKER) (test dwki=671) 3.0 mg/dL 2.3-4.7 [id number] 06:50:00 Test Item Value Reference Range Comments MAGNESIUM (BEAKER) (test okgk=206) 1.9 mg/dL 1.6-2.6 BASIC METABOLIC [id number] 06:50:00 Test Item Value Reference Range Comments SODIUM (BEAKER) (test 135 meq/L 136-145 mclp=193) POTASSIUM (BEAKER) (test 4.2 meq/L 3.5-5.1 lyjx=403) CHLORIDE (BEAKER) (test 106 meq/L 98-107 iozw=690) CO2 (BEAKER) (test 21 meq/L 22-29 whey=206) BLOOD UREA NITROGEN 19 mg/dL 7-21 (BEAKER) (test eltm=347) CREATININE (BEAKER) (test 1.62 mg/dL 0.57-1.25 ueyf=104) GLUCOSE RANDOM (BEAKER) 98 mg/dL 70-105 (test frlh=159) CALCIUM (BEAKER) (test 8.6 mg/dL 8.4-10.2 lgua=279) EGFR (BEAKER) (test 45 mL/min/1.73 sq m ESTIMATED GFR IS NOT ooxz=8484) ACCURATE CREATININE CLEARANCE IN PREDICTING GLOMERULAR FILTRATION RATE. ESTIMATED GFR IS NOT APPLICABLE FOR DIALYSIS PATIENTS. Specimen moderately ictericHEPATIC FUNCTION [id number] 06:50:00 Test Item Value Reference Range Comments TOTAL PROTEIN (BEAKER) (test hfnc=330) 6.3 gm/dL 6.0-8.3 ALBUMIN (BEAKER) (test bqul=9442) 3.7 g/dL 3.5-5.0 BILIRUBIN TOTAL (BEAKER) (test kmso=957) 6.2 mg/dL 0.2-1.2 BILIRUBIN DIRECT (BEAKER) (test guvy=392) 2.8 mg/dL 0.1-0.5 ALKALINE PHOSPHATASE (BEAKER) (test grlz=744) 54 U/L 40-150 AST (SGOT) (BEAKER) (test uqbz=148) 29 U/L 5-34 ALT (SGPT) (BEAKER) (test pnsb=715) 8 U/L 6-55 Specimen moderately ictericCALCIUM, [id number] 06:48:00 Test Item Value Reference Range Comments CALCIUM IONIZED (BEAKER) (test tfue=487) 1.12 mmol/L 1.12-1.27 PH, BLOOD (BEAKER) (test gyqw=1801) 7.33 PROTHROMBIN [id number] 06:24:00 Test Item Value Reference Range Comments PROTIME (BEAKER) (test hjif=420) 25.4 seconds 11.7-14.7 INR (BEAKER) (test xyxr=233) 2.3 <=5.9 RECOMMENDED COUMADIN/WARFARIN INR THERAPY RANGESSTANDARD DOSE: 2.0 - 3.0 Includes: PROPHYLAXIS forvenous thrombosis, systemic embolization; TREATMENT for venous thrombosis and/or pulmonary embolus.HIGH RISK: Target INR is 2.5-3.5 for patients with mechanical heart valves.[id number] 11:17:00 Test Item Value Reference Range Comments FIBRINOGEN LEVEL (BEAKER) (test olze=453) 115 mg/dl 225-434 CALCIUM, [id number] 06:04:00 Test Item Value Reference Range Comments CALCIUM IONIZED (BEAKER) (test qokb=888) 1.08 mmol/L 1.12-1.27 PH, BLOOD (BEAKER) (test myql=8107) 7.41 CBC W/PLT COUNT & AUTO [id number] 05:28:00 Test Item Value Reference Range Comments WHITE BLOOD CELL COUNT (BEAKER) (test jutr=737) 5.6 K/ L 4.0-10.0 RED BLOOD CELL COUNT (BEAKER) (test owju=838) 2.00 M/ L 4.20-5.80 HEMOGLOBIN (BEAKER) (test saca=779) 7.2 GM/DL 13.0-16.8 HEMATOCRIT (BEAKER) (test yfzn=084) 21.2 % 40.0-50.0 MEAN CORPUSCULAR VOLUME (BEAKER) (test chtg=627) 106.0 fL 82.0-98.0 MEAN CORPUSCULAR HEMOGLOBIN (BEAKER) (test 36.0 pg 27.0-33.0 oyzw=846) MEAN CORPUSCULAR HEMOGLOBIN CONC (BEAKER) (test 34.0 GM/DL 32.0-36.0 nmoh=625) RED CELL DISTRIBUTION WIDTH (BEAKER) (test 13.9 % 10.3-14.2 sgdw=718) PLATELET COUNT (BEAKER) (test tyha=965) 74 K/CU MM 150-430 MEAN PLATELET VOLUME (BEAKER) (test hhjj=079) 6.6 fL 6.5-10.5 NUCLEATED RED BLOOD CELLS (BEAKER) (test 0 /100 WBC 0-0 kdjn=608) NEUTROPHILS RELATIVE PERCENT (BEAKER) (test 66 % kosp=858) LYMPHOCYTES RELATIVE PERCENT (BEAKER) (test 14 % yzhf=005) MONOCYTES RELATIVE PERCENT (BEAKER) (test 13 % wcvg=302) EOSINOPHILS RELATIVE PERCENT (BEAKER) (test 7 % wldu=315) BASOPHILS RELATIVE PERCENT (BEAKER) (test 0 % khfm=987) NEUTROPHILS ABSOLUTE COUNT (BEAKER) (test 3.67 K/ L 1.80-8.00 pilm=562) LYMPHOCYTES ABSOLUTE COUNT (BEAKER) (test 0.80 K/ L 1.48-4.50 kfat=502) MONOCYTES ABSOLUTE COUNT (BEAKER) (test gzqo=132) 0.69 K/ L 0.00-1.30 EOSINOPHILS ABSOLUTE COUNT (BEAKER) (test 0.38 K/ L 0.00-0.50 rlfr=447) BASOPHILS ABSOLUTE COUNT (BEAKER) (test kbny=427) 0.02 K/ L 0.00-0.20 0.00PROTHROMBIN [id number] 05:11:00 Test Item Value Reference Range Comments PROTIME (BEAKER) (test wsjr=350) 25.9 seconds 11.7-14.7 INR (BEAKER) (test ldrh=145) 2.4 <=5.9 RECOMMENDED COUMADIN/WARFARIN INR THERAPY RANGESSTANDARD DOSE: 2.0 - 3.0 Includes: PROPHYLAXIS forvenous thrombosis, systemic embolization; TREATMENT for venous thrombosis and/or pulmonary embolus.HIGH RISK: Target INR is 2.5-3.5 for patients with mechanical heart valves.[id number] 05:03:00 Test Item Value Reference Range Comments PHOSPHORUS (BEAKER) (test ivgr=991) 3.5 mg/dL 2.3-4.7 [id number] 05:03:00 Test Item Value Reference Range Comments MAGNESIUM (BEAKER) (test vobo=690) 1.7 mg/dL 1.6-2.6 BASIC METABOLIC [id number] 05:03:00 Test Item Value Reference Range Comments SODIUM (BEAKER) (test 135 meq/L 136-145 ehft=186) POTASSIUM (BEAKER) (test 4.0 meq/L 3.5-5.1 yiln=924) CHLORIDE (BEAKER) (test 107 meq/L 98-107 pnzj=030) CO2 (BEAKER) (test 20 meq/L 22-29 euvl=531) BLOOD UREA NITROGEN 22 mg/dL 7-21 (BEAKER) (test rtun=118) CREATININE (BEAKER) (test 1.77 mg/dL 0.57-1.25 hzhq=646) GLUCOSE RANDOM (BEAKER) 83 mg/dL 70-105 (test fyzv=439) CALCIUM (BEAKER) (test 8.3 mg/dL 8.4-10.2 pkel=950) EGFR (BEAKER) (test 41 mL/min/1.73 sq m ESTIMATED GFR IS NOT qxgo=4696) ACCURATE CREATININE CLEARANCE IN PREDICTING GLOMERULAR FILTRATION RATE. ESTIMATED GFR IS NOT APPLICABLE FOR DIALYSIS PATIENTS. Specimen moderately ictericHEPATIC FUNCTION [id number] 05:03:00 Test Item Value Reference Range Comments TOTAL PROTEIN (BEAKER) (test fzuu=370) 6.2 gm/dL 6.0-8.3 ALBUMIN (BEAKER) (test inob=6037) 3.7 g/dL 3.5-5.0 BILIRUBIN TOTAL (BEAKER) (test agub=670) 6.0 mg/dL 0.2-1.2 BILIRUBIN DIRECT (BEAKER) (test isvq=423) 2.6 mg/dL 0.1-0.5 ALKALINE PHOSPHATASE (BEAKER) (test tgjw=064) 48 U/L 40-150 AST (SGOT) (BEAKER) (test zycr=603) 26 U/L 5-34 ALT (SGPT) (BEAKER) (test vfso=445) 8 U/L 6-55 Specimen moderately ictericURINE [id number] 14:42:00 Test Item Value Reference Range Comments CULTURE (BEAKER) (test zckb=6014) No growth ANTI-NUCLEAR ANTIBODY (CHERYL)[id number] 13:32:00 Test Item Value Reference Range Comments ANTI-NUCLEAR ANTIBODY (CHERYL) (BEAKER) (test Negative Negative lorq=431) PLATELET [id number] 06:30:00 Test Item Value Reference Range Comments PLATELET COUNT (BEAKER) (test htwt=016) 104 K/CU MM 150-430 [id number] 06:22:00 Test Item Value Reference Range Comments FIBRINOGEN LEVEL (BEAKER) (test oirj=811) 106 mg/dl 225-434 [id number] 06:16:00 Test Item Value Reference Range Comments PARTIAL THROMBOPLASTIN TIME (BEAKER) (test 48.1 seconds 22.5-36.0 fxyw=335) PROTHROMBIN [id number] 06:15:00 Test Item Value Reference Range Comments PROTIME (BEAKER) (test wrbo=956) 23.5 seconds 11.7-14.7 INR (BEAKER) (test dzlr=383) 2.1 <=5.9 RECOMMENDED COUMADIN/WARFARIN INR THERAPY RANGESSTANDARD DOSE: 2.0 - 3.0 Includes: PROPHYLAXIS forvenous thrombosis, systemic embolization; TREATMENT for venous thrombosis and/or pulmonary embolus.HIGH RISK: Target INR is 2.5-3.5 for patients with mechanical heart valves.[id number] 06:12:00 Test Item Value Reference Range Comments MAGNESIUM (BEAKER) (test 2.0 mg/dL 1.6-2.6 Specimen slightly hemolyzed rpal=026) [id number] 06:12:00 Test Item Value Reference Range Comments PHOSPHORUS (BEAKER) (test 5.0 mg/dL 2.3-4.7 Specimen slightly hemolyzed dong=223) BASIC METABOLIC [id number] 06:12:00 Test Item Value Reference Range Comments SODIUM (BEAKER) (test 135 meq/L 136-145 rzgd=756) POTASSIUM (BEAKER) (test 4.7 meq/L 3.5-5.1 Specimen slightly ojew=383) hemolyzed CHLORIDE (BEAKER) (test 107 meq/L 98-107 nsph=509) CO2 (BEAKER) (test 20 meq/L 22-29 mggb=068) BLOOD UREA NITROGEN 18 mg/dL 7-21 (BEAKER) (test zlxy=069) CREATININE (BEAKER) (test 1.74 mg/dL 0.57-1.25 Specimen slightly ghil=361) hemolyzed GLUCOSE RANDOM (BEAKER) 76 mg/dL 70-105 (test pbaz=797) CALCIUM (BEAKER) (test 8.1 mg/dL 8.4-10.2 nbci=245) EGFR (BEAKER) (test 42 mL/min/1.73 sq m ESTIMATED GFR IS NOT hink=8152) ACCURATE CREATININE CLEARANCE IN PREDICTING GLOMERULAR FILTRATION RATE. ESTIMATED GFR IS NOT APPLICABLE FOR DIALYSIS PATIENTS. Specimen moderately ictericHEPATIC FUNCTION [id number] 06:12:00 Test Item Value Reference Range Comments TOTAL PROTEIN (BEAKER) (test 6.6 gm/dL 6.0-8.3 Specimen slightly hemolyzed hdcv=905) ALBUMIN (BEAKER) (test 3.7 g/dL 3.5-5.0 Specimen slightly hemolyzed gqbf=8762) BILIRUBIN TOTAL (BEAKER) (test 5.7 mg/dL 0.2-1.2 Specimen slightly hemolyzed ipni=137) BILIRUBIN DIRECT (BEAKER) (test 2.7 mg/dL 0.1-0.5 Specimen slightly hemolyzed onwt=140) ALKALINE PHOSPHATASE (BEAKER) 56 U/L 40-150 (test huab=295) AST (SGOT) (BEAKER) (test 29 U/L 5-34 Specimen slightly hemolyzed ipfx=533) ALT (SGPT) (BEAKER) (test 7 U/L 6-55 Specimen slightly hemolyzed ihkl=507) Specimen moderately ictericLACTIC ACID, VENOUS, WHOLE [id number] 06:04:00 Test Item Value Reference Range Comments LACTATE BLOOD VENOUS (2) (BEAKER) (test 1.0 mmol/L 0.5-2.2 xjsz=8721) Effective 02/28/2016: Units/Reference Range ChangeNew: 0.5-2.2 mmol/L Previous: 5 -20 mg/dLSpecimen moderately ictericCALCIUM, [id number] 05:56:00 Test Item Value Reference Range Comments CALCIUM IONIZED (BEAKER) (test qguz=844) 1.00 mmol/L 1.12-1.27 PH, BLOOD (BEAKER) (test nuka=8996) 7.34 [id number] 21:34:00 Test Item Value Reference Range Comments FIBRINOGEN LEVEL (BEAKER) (test sgyb=959) 105 mg/dl 225-434 PLATELET [id number] 20:52:00 Test Item Value Reference Range Comments PLATELET COUNT (BEAKER) (test utxe=896) 77 K/CU MM 150-430 PT/[id number] 20:51:00 Test Item Value Reference Range Comments PROTIME (BEAKER) (test xqfg=358) 21.1 seconds 11.7-14.7 INR (BEAKER) (test uhep=948) 1.8 <=5.9 PARTIAL THROMBOPLASTIN TIME (BEAKER) (test 47.3 seconds 22.5-36.0 fhjc=092) RECOMMENDED COUMADIN/WARFARIN INR THERAPY RANGESSTANDARD DOSE: 2.0 - 3.0 Includes: PROPHYLAXIS forvenous thrombosis, systemic embolization; TREATMENT for venous thrombosis and/or pulmonary embolus.HIGH RISK: Target INR is 2.5-3.5 for patients with mechanical heart valves.[id number] 20:51:00 Test Item Value Reference Range Comments PARTIAL THROMBOPLASTIN TIME (BEAKER) (test 47.3 seconds 22.5-36.0 rreg=672) PROTHROMBIN TIME/[id number] 20:50:00 Test Item Value Reference Range Comments PROTIME (BEAKER) (test qvyu=992) 21.1 seconds 11.7-14.7 INR (BEAKER) (test ulps=732) 1.8 <=5.9 RECOMMENDED COUMADIN/WARFARIN INR THERAPY RANGESSTANDARD DOSE: 2.0 - 3.0 Includes: PROPHYLAXIS forvenous thrombosis, systemic embolization; TREATMENT for venous thrombosis and/or pulmonary embolus.HIGH RISK: Target INR is 2.5-3.5 for patients with mechanical heart valves.[id number] 19:30:00 Test Item Value Reference Range Comments PARTIAL THROMBOPLASTIN TIME (BEAKER) (test 45.1 seconds 22.5-36.0 wswq=399) PROTHROMBIN TIME/[id number] 19:29:00 Test Item Value Reference Range Comments PROTIME (BEAKER) (test eqop=424) 28.2 seconds 11.7-14.7 INR (BEAKER) (test ikcn=571) 2.6 <=5.9 RECOMMENDED COUMADIN/WARFARIN INR THERAPY RANGESSTANDARD DOSE: 2.0 - 3.0 Includes: PROPHYLAXIS forvenous thrombosis, systemic embolization; TREATMENT for venous thrombosis and/or pulmonary embolus.HIGH RISK: Target INR is 2.5-3.5 for patients with mechanical heart valves.BODY FLUID CELL COUNT WITH [id number] 18:53:00 Test Item Value Reference Range Comments APPEARANCE FLUID (BEAKER) (test loqe=989) Hazy Clear COLOR FLUID (BEAKER) (test yazd=831) Yellow Colorless, Straw RBC FLUID (BEAKER) (test uxht=203) 900 /cu mm <=1 ADJUSTED WBC FLUID (BEAKER) (test axze=1310) 306 /cu mm <=5 LINING CELLS (BEAKER) (test bvur=6012) 64 /cu mm <=1 NEUTROPHILS FLUID (BEAKER) (test soin=6508) 4 % LYMPHS FLUID (BEAKER) (test tkjp=502) 18 % MONO/MACROPHAGE FLUID (BEAKER) (test uwko=073) 78 % EOSINOPHILS FLUID (BEAKER) (test mydv=548) 0 % BASO FLUID (BEAKER) (test fbwn=168) 0 % CONTAINER BODY FLUID (BEAKER) (test flcg=7301) EDTA Tube [id number] 16:56:00 Test Item Value Reference Range Comments AMYLASE (BEAKER) (test eumb=184) 37 U/L 25-125 Specimen moderately ictericCOMPREHENSIVE METABOLIC [id number] 16:56:00 Test Item Value Reference Range Comments TOTAL PROTEIN (BEAKER) 6.1 gm/dL 6.0-8.3 (test hmji=746) ALBUMIN (BEAKER) (test 3.2 g/dL 3.5-5.0 cahz=3350) ALKALINE PHOSPHATASE 67 U/L 40-150 (BEAKER) (test godi=748) BILIRUBIN TOTAL (BEAKER) 5.7 mg/dL 0.2-1.2 (test afca=331) SODIUM (BEAKER) (test 134 meq/L 136-145 ctxx=066) POTASSIUM (BEAKER) (test 3.8 meq/L 3.5-5.1 tjvu=115) CHLORIDE (BEAKER) (test 106 meq/L 98-107 aeve=407) CO2 (BEAKER) (test 19 meq/L 22-29 bxhi=543) BLOOD UREA NITROGEN 18 mg/dL 7-21 (BEAKER) (test aptq=138) CREATININE (BEAKER) (test 1.52 mg/dL 0.57-1.25 ucge=877) GLUCOSE RANDOM (BEAKER) 112 mg/dL 70-105 (test ldld=283) CALCIUM (BEAKER) (test 8.3 mg/dL 8.4-10.2 joyd=333) AST (SGOT) (BEAKER) (test 28 U/L 5-34 ekun=982) ALT (SGPT) (BEAKER) (test 10 U/L 6-55 lrfs=481) EGFR (BEAKER) (test 49 mL/min/1.73 sq m ESTIMATED GFR IS NOT fsqr=9513) ACCURATE CREATININE CLEARANCE IN PREDICTING GLOMERULAR FILTRATION RATE. ESTIMATED GFR IS NOT APPLICABLE FOR DIALYSIS PATIENTS. Specimen moderately [id number] 16:56:00 Test Item Value Reference Range Comments LIPASE (BEAKER) (test fnvv=914) 52 U/L 8-78 Specimen moderately ictericCBC W/PLT COUNT & AUTO [id number] 16: 27:00 Test Item Value Reference Range Comments WHITE BLOOD CELL COUNT (BEAKER) (test dugj=619) 3.7 K/ L 4.0-10.0 RED BLOOD CELL COUNT (BEAKER) (test absz=194) 2.16 M/ L 4.20-5.80 HEMOGLOBIN (BEAKER) (test dyao=846) 7.8 GM/DL 13.0-16.8 HEMATOCRIT (BEAKER) (test dxxe=820) 23.1 % 40.0-50.0 MEAN CORPUSCULAR VOLUME (BEAKER) (test lkbj=855) 107.0 fL 82.0-98.0 MEAN CORPUSCULAR HEMOGLOBIN (BEAKER) (test 36.0 pg 27.0-33.0 mfcw=125) MEAN CORPUSCULAR HEMOGLOBIN CONC (BEAKER) (test 33.6 GM/DL 32.0-36.0 tfyr=106) RED CELL DISTRIBUTION WIDTH (BEAKER) (test 13.9 % 10.3-14.2 jhyh=849) PLATELET COUNT (BEAKER) (test xwjg=394) 78 K/CU MM 150-430 MEAN PLATELET VOLUME (BEAKER) (test bfwm=436) 6.2 fL 6.5-10.5 NUCLEATED RED BLOOD CELLS (BEAKER) (test 0 /100 WBC 0-0 dyru=286) NEUTROPHILS RELATIVE PERCENT (BEAKER) (test 50 % clvk=842) LYMPHOCYTES RELATIVE PERCENT (BEAKER) (test 25 % lzlv=375) MONOCYTES RELATIVE PERCENT (BEAKER) (test 19 % lwmc=908) EOSINOPHILS RELATIVE PERCENT (BEAKER) (test 6 % rsyy=845) BASOPHILS RELATIVE PERCENT (BEAKER) (test 1 % xswc=087) NEUTROPHILS ABSOLUTE COUNT (BEAKER) (test 1.82 K/ L 1.80-8.00 pnvg=492) LYMPHOCYTES ABSOLUTE COUNT (BEAKER) (test 0.91 K/ L 1.48-4.50 yvfz=734) MONOCYTES ABSOLUTE COUNT (BEAKER) (test wpzt=092) 0.69 K/ L 0.00-1.30 EOSINOPHILS ABSOLUTE COUNT (BEAKER) (test 0.21 K/ L 0.00-0.50 qymj=768) BASOPHILS ABSOLUTE COUNT (BEAKER) (test lffd=384) 0.02 K/ L 0.00-0.20 0.00HEPATIC FUNCTION [id number] 08:34:00 Test Item Value Reference Range Comments TOTAL PROTEIN (BEAKER) (test zsvv=198) 5.9 gm/dL 6.0-8.3 ALBUMIN (BEAKER) (test htay=5264) 3.2 g/dL 3.5-5.0 BILIRUBIN TOTAL (BEAKER) (test hbfb=794) 5.4 mg/dL 0.2-1.2 BILIRUBIN DIRECT (BEAKER) (test dzxd=470) 2.5 mg/dL 0.1-0.5 ALKALINE PHOSPHATASE (BEAKER) (test cvfm=231) 60 U/L 40-150 AST (SGOT) (BEAKER) (test xxtf=944) 28 U/L 5-34 ALT (SGPT) (BEAKER) (test fegh=720) 10 U/L 6-55 Specimen moderately [id number] 08:16:00 Test Item Value Reference Range Comments PHOSPHORUS (BEAKER) (test qsuo=378) 3.0 mg/dL 2.3-4.7 [id number] 08:16:00 Test Item Value Reference Range Comments MAGNESIUM (BEAKER) (test jlak=413) 1.6 mg/dL 1.6-2.6 BASIC METABOLIC [id number] 08:16:00 Test Item Value Reference Range Comments SODIUM (BEAKER) (test 133 meq/L 136-145 xgcq=868) POTASSIUM (BEAKER) (test 3.6 meq/L 3.5-5.1 htqt=095) CHLORIDE (BEAKER) (test 105 meq/L 98-107 guij=674) CO2 (BEAKER) (test 20 meq/L 22-29 tdmj=467) BLOOD UREA NITROGEN 18 mg/dL 7-21 (BEAKER) (test nvxm=249) CREATININE (BEAKER) (test 1.54 mg/dL 0.57-1.25 gnli=949) GLUCOSE RANDOM (BEAKER) 70 mg/dL 70-105 (test enzh=589) CALCIUM (BEAKER) (test 8.2 mg/dL 8.4-10.2 cmar=839) EGFR (BEAKER) (test 48 mL/min/1.73 sq m ESTIMATED GFR IS NOT wnzc=5050) ACCURATE CREATININE CLEARANCE IN PREDICTING GLOMERULAR FILTRATION RATE. ESTIMATED GFR IS NOT APPLICABLE FOR DIALYSIS PATIENTS. Specimen moderately ictericCBC W/PLT COUNT & AUTO [id number] 08: 06:00 Test Item Value Reference Range Comments WHITE BLOOD CELL COUNT (BEAKER) (test kcrk=429) 3.4 K/ L 4.0-10.0 RED BLOOD CELL COUNT (BEAKER) (test hodi=469) 2.03 M/ L 4.20-5.80 HEMOGLOBIN (BEAKER) (test gzfr=679) 7.3 GM/DL 13.0-16.8 HEMATOCRIT (BEAKER) (test jnhe=559) 21.6 % 40.0-50.0 MEAN CORPUSCULAR VOLUME (BEAKER) (test ptdo=916) 106.0 fL 82.0-98.0 MEAN CORPUSCULAR HEMOGLOBIN (BEAKER) (test 35.8 pg 27.0-33.0 lpwl=103) MEAN CORPUSCULAR HEMOGLOBIN CONC (BEAKER) (test 33.7 GM/DL 32.0-36.0 nnca=052) RED CELL DISTRIBUTION WIDTH (BEAKER) (test 13.5 % 10.3-14.2 wcyo=188) PLATELET COUNT (BEAKER) (test vvzd=264) 82 K/CU MM 150-430 MEAN PLATELET VOLUME (BEAKER) (test jfmj=646) 6.7 fL 6.5-10.5 NUCLEATED RED BLOOD CELLS (BEAKER) (test 0 /100 WBC 0-0 knqz=472) NEUTROPHILS RELATIVE PERCENT (BEAKER) (test 50 % zfuj=914) LYMPHOCYTES RELATIVE PERCENT (BEAKER) (test 25 % lgbu=801) MONOCYTES RELATIVE PERCENT (BEAKER) (test 19 % gooz=854) EOSINOPHILS RELATIVE PERCENT (BEAKER) (test 5 % fzog=217) BASOPHILS RELATIVE PERCENT (BEAKER) (test 1 % flyg=108) NEUTROPHILS ABSOLUTE COUNT (BEAKER) (test 1.69 K/ L 1.80-8.00 oixd=669) LYMPHOCYTES ABSOLUTE COUNT (BEAKER) (test 0.83 K/ L 1.48-4.50 yozx=889) MONOCYTES ABSOLUTE COUNT (BEAKER) (test kxek=381) 0.65 K/ L 0.00-1.30 EOSINOPHILS ABSOLUTE COUNT (BEAKER) (test 0.17 K/ L 0.00-0.50 lsic=634) BASOPHILS ABSOLUTE COUNT (BEAKER) (test qqkn=339) 0.04 K/ L 0.00-0.20 0.00PROTHROMBIN [id number] 08:01:00 Test Item Value Reference Range Comments PROTIME (BEAKER) (test vjpf=325) 27.6 seconds 11.7-14.7 INR (BEAKER) (test ayvp=886) 2.6 <=5.9 RECOMMENDED COUMADIN/WARFARIN INR THERAPY RANGESSTANDARD DOSE: 2.0 - 3.0 Includes: PROPHYLAXIS forvenous thrombosis, systemic embolization; TREATMENT for venous thrombosis and/or pulmonary embolus.HIGH RISK: Target INR is 2.5-3.5 for patients with mechanical heart valves.CALCIUM, [id number] 07:58:00 Test Item Value Reference Range Comments CALCIUM IONIZED (BEAKER) (test galw=493) 1.00 mmol/L 1.12-1.27 PH, BLOOD (BEAKER) (test yefb=4659) 7.53 URINALYSIS W/ [id number] 18:42:00 Test Item Value Reference Range Comments COLOR (BEAKER) (test qllz=969) Yellow CLARITY (BEAKER) (test qrje=722) Clear SPECIFIC GRAVITY UA (BEAKER) (test 1.009 1.001-1.035 liel=424) PH UA (BEAKER) (test eocu=635) 7.5 5.0-8.0 PROTEIN UA (BEAKER) (test qmpz=214) Negative Negative GLUCOSE UA (BEAKER) (test vsjr=552) Negative Negative KETONES UA (BEAKER) (test gudc=589) Negative Negative BILIRUBIN UA (BEAKER) (test bhfk=332) Negative Negative BLOOD UA (BEAKER) (test uiaz=015) Negative Negative NITRITE UA (BEAKER) (test irck=790) Negative Negative LEUKOCYTE ESTERASE UA (BEAKER) (test Negative Negative klni=736) UROBILINOGEN UA (BEAKER) (test pnmj=103) 3.0 mg/dL 0.2-1.0 RBC UA (BEAKER) (test tjqr=959) 6 /HPF WBC UA (BEAKER) (test aupt=153) 1 /HPF SOURCE(BEAKER) (test mpli=7086) Urine, Clean Catch PROTHROMBIN [id number] 15:13:00 Test Item Value Reference Range Comments PROTIME (BEAKER) (test qxwe=438) 31.4 seconds 11.7-14.7 INR (BEAKER) (test djub=627) 3.0 <=5.9 RECOMMENDED COUMADIN/WARFARIN INR THERAPY RANGESSTANDARD DOSE: 2.0 - 3.0 Includes: PROPHYLAXIS forvenous thrombosis, systemic embolization; TREATMENT for venous thrombosis and/or pulmonary embolus.HIGH RISK: Target INR is 2.5-3.5 for patients with mechanical heart valves.Draw after vitamin K administrationCBC W/PLT COUNT & AUTO [id number] 07:02:00 Test Item Value Reference Range Comments WHITE BLOOD CELL COUNT (BEAKER) (test sjea=413) 3.0 K/ L 4.0-10.0 RED BLOOD CELL COUNT (BEAKER) (test ufzk=896) 2.21 M/ L 4.20-5.80 HEMOGLOBIN (BEAKER) (test ifse=726) 7.5 GM/DL 13.0-16.8 HEMATOCRIT (BEAKER) (test osyo=152) 23.5 % 40.0-50.0 MEAN CORPUSCULAR VOLUME (BEAKER) (test waaq=505) 106.0 fL 82.0-98.0 MEAN CORPUSCULAR HEMOGLOBIN (BEAKER) (test 34.0 pg 27.0-33.0 ksxx=775) MEAN CORPUSCULAR HEMOGLOBIN CONC (BEAKER) (test 32.0 GM/DL 32.0-36.0 mpkl=463) RED CELL DISTRIBUTION WIDTH (BEAKER) (test 13.0 % 10.3-14.2 hxub=897) PLATELET COUNT (BEAKER) (test tojl=074) 81 K/CU MM 150-430 MEAN PLATELET VOLUME (BEAKER) (test gbmx=523) 6.3 fL 6.5-10.5 NUCLEATED RED BLOOD CELLS (BEAKER) (test 0 /100 WBC 0-0 efip=629) NEUTROPHILS RELATIVE PERCENT (BEAKER) (test 52 % ywwc=486) LYMPHOCYTES RELATIVE PERCENT (BEAKER) (test 24 % mxhb=550) MONOCYTES RELATIVE PERCENT (BEAKER) (test 20 % tjou=295) EOSINOPHILS RELATIVE PERCENT (BEAKER) (test 3 % mabd=925) BASOPHILS RELATIVE PERCENT (BEAKER) (test 1 % cnwc=990) NEUTROPHILS ABSOLUTE COUNT (BEAKER) (test 1.53 K/ L 1.80-8.00 lbpw=930) LYMPHOCYTES ABSOLUTE COUNT (BEAKER) (test 0.71 K/ L 1.48-4.50 tcvh=722) MONOCYTES ABSOLUTE COUNT (BEAKER) (test kcwc=007) 0.60 K/ L 0.00-1.30 EOSINOPHILS ABSOLUTE COUNT (BEAKER) (test 0.10 K/ L 0.00-0.50 dahw=675) BASOPHILS ABSOLUTE COUNT (BEAKER) (test dobl=593) 0.03 K/ L 0.00-0.20 0.00BASI METABOLIC [id number] 06:29:00 Test Item Value Reference Range Comments SODIUM (BEAKER) (test 135 meq/L 136-145 lqvg=441) POTASSIUM (BEAKER) (test 4.0 meq/L 3.5-5.1 rqck=883) CHLORIDE (BEAKER) (test 106 meq/L 98-107 fsol=188) CO2 (BEAKER) (test 22 meq/L 22-29 umhw=892) BLOOD UREA NITROGEN 17 mg/dL 7-21 (BEAKER) (test hbyi=961) CREATININE (BEAKER) (test 1.46 mg/dL 0.57-1.25 gwkg=683) GLUCOSE RANDOM (BEAKER) 75 mg/dL 70-105 (test qtev=320) CALCIUM (BEAKER) (test 8.0 mg/dL 8.4-10.2 engp=266) EGFR (BEAKER) (test 51 mL/min/1.73 sq m ESTIMATED GFR IS NOT gtdg=4425) ACCURATE CREATININE CLEARANCE IN PREDICTING GLOMERULAR FILTRATION RATE. ESTIMATED GFR IS NOT APPLICABLE FOR DIALYSIS PATIENTS. Specimen moderately ictericHEPATIC FUNCTION [id number] 06:29:00 Test Item Value Reference Range Comments TOTAL PROTEIN (BEAKER) (test edva=017) 5.9 gm/dL 6.0-8.3 ALBUMIN (BEAKER) (test hnfc=1688) 3.0 g/dL 3.5-5.0 BILIRUBIN TOTAL (BEAKER) (test hoem=361) 5.4 mg/dL 0.2-1.2 BILIRUBIN DIRECT (BEAKER) (test yhjd=089) 2.7 mg/dL 0.1-0.5 ALKALINE PHOSPHATASE (BEAKER) (test xbzn=970) 65 U/L 40-150 AST (SGOT) (BEAKER) (test cfpi=335) 27 U/L 5-34 ALT (SGPT) (BEAKER) (test vinm=140) 7 U/L 6-55 Specimen moderately ictericPROTHROMBIN [id number] 06:23:00 Test Item Value Reference Range Comments PROTIME (BEAKER) (test tbhh=088) 31.2 seconds 11.7-14.7 INR (BEAKER) (test vnco=571) 3.0 <=5.9 RECOMMENDED COUMADIN/WARFARIN INR THERAPY RANGESSTANDARD DOSE: 2.0 - 3.0 Includes: PROPHYLAXIS forvenous thrombosis, systemic embolization; TREATMENT for venous thrombosis and/or pulmonary embolus.HIGH RISK: Target INR is 2.5-3.5 for patients with mechanical heart valves.CBC W/PLT COUNT & AUTO [id number] 06:26:00 Test Item Value Reference Range Comments WHITE BLOOD CELL COUNT (BEAKER) (test qppv=362) 3.0 K/ L 4.0-10.0 RED BLOOD CELL COUNT (BEAKER) (test xksl=886) 2.16 M/ L 4.20-5.80 HEMOGLOBIN (BEAKER) (test nkpg=217) 7.4 GM/DL 13.0-16.8 HEMATOCRIT (BEAKER) (test gbyo=013) 23.1 % 40.0-50.0 MEAN CORPUSCULAR VOLUME (BEAKER) (test qfmj=824) 107.0 fL 82.0-98.0 MEAN CORPUSCULAR HEMOGLOBIN (BEAKER) (test 34.4 pg 27.0-33.0 bfjb=217) MEAN CORPUSCULAR HEMOGLOBIN CONC (BEAKER) (test 32.1 GM/DL 32.0-36.0 lcfm=471) RED CELL DISTRIBUTION WIDTH (BEAKER) (test 13.1 % 10.3-14.2 dtps=938) PLATELET COUNT (BEAKER) (test rmfc=530) 72 K/CU MM 150-430 MEAN PLATELET VOLUME (BEAKER) (test znkv=160) 6.1 fL 6.5-10.5 NUCLEATED RED BLOOD CELLS (BEAKER) (test 0 /100 WBC 0-0 ammf=107) NEUTROPHILS RELATIVE PERCENT (BEAKER) (test 58 % advu=746) LYMPHOCYTES RELATIVE PERCENT (BEAKER) (test 21 % qttz=726) MONOCYTES RELATIVE PERCENT (BEAKER) (test 15 % vpdd=909) EOSINOPHILS RELATIVE PERCENT (BEAKER) (test 4 % jllt=427) BASOPHILS RELATIVE PERCENT (BEAKER) (test 1 % cqji=854) NEUTROPHILS ABSOLUTE COUNT (BEAKER) (test 1.73 K/ L 1.80-8.00 mecc=945) LYMPHOCYTES ABSOLUTE COUNT (BEAKER) (test 0.64 K/ L 1.48-4.50 ripz=920) MONOCYTES ABSOLUTE COUNT (BEAKER) (test fihv=506) 0.45 K/ L 0.00-1.30 EOSINOPHILS ABSOLUTE COUNT (BEAKER) (test 0.13 K/ L 0.00-0.50 krqo=692) BASOPHILS ABSOLUTE COUNT (BEAKER) (test pdld=935) 0.02 K/ L 0.00-0.20 0.00BASI METABOLIC [id number] 06:24:00 Test Item Value Reference Range Comments SODIUM (BEAKER) (test 134 meq/L 136-145 umau=839) POTASSIUM (BEAKER) (test 3.7 meq/L 3.5-5.1 oikg=313) CHLORIDE (BEAKER) (test 105 meq/L 98-107 wbng=501) CO2 (BEAKER) (test 21 meq/L 22-29 uteb=320) BLOOD UREA NITROGEN 18 mg/dL 7-21 (BEAKER) (test hxfh=296) CREATININE (BEAKER) (test 1.53 mg/dL 0.57-1.25 jpcf=475) GLUCOSE RANDOM (BEAKER) 103 mg/dL 70-105 (test rbnv=027) CALCIUM (BEAKER) (test 7.6 mg/dL 8.4-10.2 kvpw=421) EGFR (BEAKER) (test 48 mL/min/1.73 sq m ESTIMATED GFR IS NOT pvia=2598) ACCURATE CREATININE CLEARANCE IN PREDICTING GLOMERULAR FILTRATION RATE. ESTIMATED GFR IS NOT APPLICABLE FOR DIALYSIS PATIENTS. Specimen moderately ictericHEPATIC FUNCTION [id number] 06:19:00 Test Item Value Reference Range Comments TOTAL PROTEIN (BEAKER) (test rdde=155) 5.6 gm/dL 6.0-8.3 ALBUMIN (BEAKER) (test jjqz=1716) 2.4 g/dL 3.5-5.0 BILIRUBIN TOTAL (BEAKER) (test wbuy=093) 4.8 mg/dL 0.2-1.2 BILIRUBIN DIRECT (BEAKER) (test kusj=256) 2.6 mg/dL 0.1-0.5 ALKALINE PHOSPHATASE (BEAKER) (test jxog=981) 70 U/L 40-150 AST (SGOT) (BEAKER) (test qgqs=175) 28 U/L 5-34 ALT (SGPT) (BEAKER) (test vlls=982) 11 U/L 6-55 Specimen moderately ictericPROTHROMBIN [id number] 06:00:00 Test Item Value Reference Range Comments PROTIME (BEAKER) (test prvw=891) 36.7 seconds 11.7-14.7 INR (BEAKER) (test bcvq=950) 3.7 <=5.9 RECOMMENDED COUMADIN/WARFARIN INR THERAPY RANGESSTANDARD DOSE: 2.0 - 3.0 Includes: PROPHYLAXIS forvenous thrombosis, systemic embolization; TREATMENT for venous thrombosis and/or pulmonary embolus.HIGH RISK: Target INR is 2.5-3.5 for patients with mechanical heart valves.BODY FLUID CULTURE + GRAM [id number] 00:51:00 Test Item Value Reference Range Comments CULTURE (BEAKER) (test drxr=4033) No growth GRAM STAIN RESULT (BEAKER) (test 3+ WBCs bcxt=6539) GRAM STAIN RESULT (BEAKER) (test No organisms seen efra=50190) BLOOD [id number] 17:08:00 Test Item Value Reference Range Comments CULTURE (BEAKER) (test kkul=3167) No growth in 5 days BLOOD [id number] 17:06:00 Test Item Value Reference Range Comments CULTURE (BEAKER) (test ezgm=5183) No growth in 5 days CBC W/PLT COUNT & AUTO [id number] 07:05:00 Test Item Value Reference Range Comments WHITE BLOOD CELL COUNT (BEAKER) (test lptg=979) 3.5 K/ L 4.0-10.0 RED BLOOD CELL COUNT (BEAKER) (test tsxx=416) 2.16 M/ L 4.20-5.80 HEMOGLOBIN (BEAKER) (test gyma=830) 7.8 GM/DL 13.0-16.8 HEMATOCRIT (BEAKER) (test fxrv=890) 23.9 % 40.0-50.0 MEAN CORPUSCULAR VOLUME (BEAKER) (test laxa=157) 111.0 fL 82.0-98.0 MEAN CORPUSCULAR HEMOGLOBIN (BEAKER) (test 36.3 pg 27.0-33.0 avwh=465) MEAN CORPUSCULAR HEMOGLOBIN CONC (BEAKER) (test 32.8 GM/DL 32.0-36.0 wuln=135) RED CELL DISTRIBUTION WIDTH (BEAKER) (test 13.9 % 10.3-14.2 qhse=081) PLATELET COUNT (BEAKER) (test evrn=777) 72 K/CU MM 150-430 MEAN PLATELET VOLUME (BEAKER) (test njum=184) 6.4 fL 6.5-10.5 NUCLEATED RED BLOOD CELLS (BEAKER) (test 0 /100 WBC 0-0 sept=517) NEUTROPHILS RELATIVE PERCENT (BEAKER) (test 51 % gzlz=959) LYMPHOCYTES RELATIVE PERCENT (BEAKER) (test 25 % lnnw=178) MONOCYTES RELATIVE PERCENT (BEAKER) (test 18 % pazi=772) EOSINOPHILS RELATIVE PERCENT (BEAKER) (test 6 % hhic=123) BASOPHILS RELATIVE PERCENT (BEAKER) (test 0 % febf=533) NEUTROPHILS ABSOLUTE COUNT (BEAKER) (test 1.77 K/ L 1.80-8.00 dgvk=385) LYMPHOCYTES ABSOLUTE COUNT (BEAKER) (test 0.87 K/ L 1.48-4.50 njti=131) MONOCYTES ABSOLUTE COUNT (BEAKER) (test sqem=445) 0.62 K/ L 0.00-1.30 EOSINOPHILS ABSOLUTE COUNT (BEAKER) (test 0.22 K/ L 0.00-0.50 tydb=125) BASOPHILS ABSOLUTE COUNT (BEAKER) (test hqzh=875) 0.01 K/ L 0.00-0.20 0.00BASIC METABOLIC [id number] 06:54:00 Test Item Value Reference Range Comments SODIUM (BEAKER) (test 137 meq/L 136-145 ucos=413) POTASSIUM (BEAKER) (test 3.8 meq/L 3.5-5.1 mrgt=180) CHLORIDE (BEAKER) (test 109 meq/L 98-107 dxun=895) CO2 (BEAKER) (test 21 meq/L 22-29 sjjq=619) BLOOD UREA NITROGEN 17 mg/dL 7-21 (BEAKER) (test ticj=814) CREATININE (BEAKER) (test 1.60 mg/dL 0.57-1.25 yzer=830) GLUCOSE RANDOM (BEAKER) 76 mg/dL 70-105 (test bcth=260) CALCIUM (BEAKER) (test 7.5 mg/dL 8.4-10.2 chgx=828) EGFR (BEAKER) (test 46 mL/min/1.73 sq m ESTIMATED GFR IS NOT fazv=0942) ACCURATE CREATININE CLEARANCE IN PREDICTING GLOMERULAR FILTRATION RATE. ESTIMATED GFR IS NOT APPLICABLE FOR DIALYSIS PATIENTS. Specimen moderately ictericHEPATIC FUNCTION [id number] 06:53:00 Test Item Value Reference Range Comments TOTAL PROTEIN (BEAKER) (test ibst=978) 5.6 gm/dL 6.0-8.3 ALBUMIN (BEAKER) (test yijr=9846) 2.4 g/dL 3.5-5.0 BILIRUBIN TOTAL (BEAKER) (test mjbv=479) 4.5 mg/dL 0.2-1.2 BILIRUBIN DIRECT (BEAKER) (test tkuk=974) 2.7 mg/dL 0.1-0.5 ALKALINE PHOSPHATASE (BEAKER) (test rhoj=868) 74 U/L 40-150 AST (SGOT) (BEAKER) (test ozzg=987) 36 U/L 5-34 ALT (SGPT) (BEAKER) (test xnri=208) 13 U/L 6-55 Specimen moderately ictericB-TYPE NATRIURETIC FACTOR (BNP)[id number] 06:52:00 Test Item Value Reference Range Comments B-TYPE NATRIURETIC PEPTIDE (BEAKER) (test 446 pg/mL 0-100 pudg=885) PROTHROMBIN [id number] 06:36:00 Test Item Value Reference Range Comments PROTIME (BEAKER) (test qaah=109) 28.7 seconds 11.7-14.7 INR (BEAKER) (test auza=501) 2.7 <=5.9 RECOMMENDED COUMADIN/WARFARIN INR THERAPY RANGESSTANDARD DOSE: 2.0 - 3.0 Includes: PROPHYLAXIS forvenous thrombosis, systemic embolization; TREATMENT for venous thrombosis and/or pulmonary embolus.HIGH RISK: Target INR is 2.5-3.5 for patients with mechanical heart valves.EOSINOPHIL SMEAR, [id number] 21: 44:00 Test Item Value Reference Range Comments EOSINOPHIL SMEAR, URINE (BEAKER) (test No EOS seen No EOS seen hzij=9462) CREATININE, RANDOM [id number] 18:02:00 Test Item Value Reference Range Comments CREATININE URINE (BEAKER) (test zydp=957) 96.3 mg/dL Reference Range: No NormalsSODIUM, RANDOM [id number] 18:02:00 Test Item Value Reference Range Comments SODIUM URINE (BEAKER) (test vdlh=278) 58 meq/L Reference Range: No NormalsURINALYSIS W/ [id number] 17:33:00 Test Item Value Reference Range Comments COLOR (BEAKER) (test tzyg=402) Yellow CLARITY (BEAKER) (test tzhl=965) Clear SPECIFIC GRAVITY UA (BEAKER) (test nwgy=678) 1.009 1.001-1.035 PH UA (BEAKER) (test ibsm=545) 6.0 5.0-8.0 PROTEIN UA (BEAKER) (test pgdn=678) Negative Negative GLUCOSE UA (BEAKER) (test yayd=572) Negative Negative KETONES UA (BEAKER) (test pznu=981) Negative Negative BILIRUBIN UA (BEAKER) (test qidn=702) Negative Negative BLOOD UA (BEAKER) (test msby=587) Negative Negative NITRITE UA (BEAKER) (test rhdx=586) Negative Negative LEUKOCYTE ESTERASE UA (BEAKER) (test xsfq=775) Negative Negative UROBILINOGEN UA (BEAKER) (test moik=015) 4.0 mg/dL 0.2-1.0 RBC UA (BEAKER) (test gzes=355) < /HPF WBC UA (BEAKER) (test spxq=791) 2 /HPF BACTERIA (BEAKER) (test zicb=167) Rare SOURCE(BEAKER) (test vpgh=9863) CBC W/PLT COUNT & AUTO [id number] 06:53:00 Test Item Value Reference Range Comments WHITE BLOOD CELL COUNT (BEAKER) (test yqfa=490) 3.5 K/ L 4.0-10.0 RED BLOOD CELL COUNT (BEAKER) (test ecse=828) 2.17 M/ L 4.20-5.80 HEMOGLOBIN (BEAKER) (test gofd=478) 7.9 GM/DL 13.0-16.8 HEMATOCRIT (BEAKER) (test qtbu=288) 23.9 % 40.0-50.0 MEAN CORPUSCULAR VOLUME (BEAKER) (test gqvv=585) 110.0 fL 82.0-98.0 MEAN CORPUSCULAR HEMOGLOBIN (BEAKER) (test 36.1 pg 27.0-33.0 sumz=897) MEAN CORPUSCULAR HEMOGLOBIN CONC (BEAKER) (test 32.9 GM/DL 32.0-36.0 ebno=136) RED CELL DISTRIBUTION WIDTH (BEAKER) (test 14.0 % 10.3-14.2 fawq=383) PLATELET COUNT (BEAKER) (test xwyk=693) 77 K/CU MM 150-430 MEAN PLATELET VOLUME (BEAKER) (test lgmg=059) 6.1 fL 6.5-10.5 NUCLEATED RED BLOOD CELLS (BEAKER) (test 0 /100 WBC 0-0 hvuk=287) NEUTROPHILS RELATIVE PERCENT (BEAKER) (test 56 % wnpk=613) LYMPHOCYTES RELATIVE PERCENT (BEAKER) (test 20 % wjuw=932) MONOCYTES RELATIVE PERCENT (BEAKER) (test 18 % qbll=142) EOSINOPHILS RELATIVE PERCENT (BEAKER) (test 6 % fhpr=362) BASOPHILS RELATIVE PERCENT (BEAKER) (test 1 % xaxz=545) NEUTROPHILS ABSOLUTE COUNT (BEAKER) (test 1.95 K/ L 1.80-8.00 ftnp=822) LYMPHOCYTES ABSOLUTE COUNT (BEAKER) (test 0.69 K/ L 1.48-4.50 cdzk=426) MONOCYTES ABSOLUTE COUNT (BEAKER) (test ujjf=739) 0.62 K/ L 0.00-1.30 EOSINOPHILS ABSOLUTE COUNT (BEAKER) (test 0.20 K/ L 0.00-0.50 rprt=636) BASOPHILS ABSOLUTE COUNT (BEAKER) (test jvky=683) 0.03 K/ L 0.00-0.20 0.00BASIC METABOLIC [id number] 06:45:00 Test Item Value Reference Range Comments SODIUM (BEAKER) (test 134 meq/L 136-145 pewn=045) POTASSIUM (BEAKER) (test 3.6 meq/L 3.5-5.1 jhpx=405) CHLORIDE (BEAKER) (test 106 meq/L 98-107 effx=092) CO2 (BEAKER) (test 21 meq/L 22-29 dqbx=327) BLOOD UREA NITROGEN 14 mg/dL 7-21 (BEAKER) (test ikss=085) CREATININE (BEAKER) (test 1.33 mg/dL 0.57-1.25 wyly=960) GLUCOSE RANDOM (BEAKER) 71 mg/dL 70-105 (test mopx=753) CALCIUM (BEAKER) (test 7.6 mg/dL 8.4-10.2 wwdy=407) EGFR (BEAKER) (test 57 mL/min/1.73 sq m ESTIMATED GFR IS NOT czph=4611) ACCURATE CREATININE CLEARANCE IN PREDICTING GLOMERULAR FILTRATION RATE. ESTIMATED GFR IS NOT APPLICABLE FOR DIALYSIS PATIENTS. Specimen moderately ictericHEPATIC FUNCTION [id number] 06:40:00 Test Item Value Reference Range Comments TOTAL PROTEIN (BEAKER) (test scfj=621) 5.6 gm/dL 6.0-8.3 ALBUMIN (BEAKER) (test yzej=6023) 2.1 g/dL 3.5-5.0 BILIRUBIN TOTAL (BEAKER) (test urnx=471) 4.4 mg/dL 0.2-1.2 BILIRUBIN DIRECT (BEAKER) (test zcgh=691) 2.9 mg/dL 0.1-0.5 ALKALINE PHOSPHATASE (BEAKER) (test odgt=217) 86 U/L 40-150 AST (SGOT) (BEAKER) (test ojoc=830) 45 U/L 5-34 ALT (SGPT) (BEAKER) (test uayt=839) 13 U/L 6-55 Specimen moderately ictericPROTHROMBIN [id number] 06:05:00 Test Item Value Reference Range Comments PROTIME (BEAKER) (test aoun=947) 29.4 seconds 11.7-14.7 INR (BEAKER) (test ldsd=257) 2.8 <=5.9 RECOMMENDED COUMADIN/WARFARIN INR THERAPY RANGESSTANDARD DOSE: 2.0 - 3.0 Includes: PROPHYLAXIS forvenous thrombosis, systemic embolization; TREATMENT for venous thrombosis and/or pulmonary embolus.HIGH RISK: Target INR is 2.5-3.5 for patients with mechanical heart valves.BODY FLUID CELL COUNT WITH [id number] 20:51:00 Test Item Value Reference Range Comments APPEARANCE FLUID (BEAKER) (test zxrb=505) Slightly Hazy Clear COLOR FLUID (BEAKER) (test ltth=564) Yellow Colorless, Straw RBC FLUID (BEAKER) (test jpyo=377) 545 /cu mm <=1 ADJUSTED WBC FLUID (BEAKER) (test kyre=2608) 104 /cu mm <=5 LINING CELLS (BEAKER) (test wucu=6320) 1 /cu mm <=1 NEUTROPHILS FLUID (BEAKER) (test atys=6478) 3 % LYMPHS FLUID (BEAKER) (test yncm=140) 13 % MONO/MACROPHAGE FLUID (BEAKER) (test 84 % txrk=991) EOSINOPHILS FLUID (BEAKER) (test boie=226) 0 % BASO FLUID (BEAKER) (test azch=875) 0 % CONTAINER BODY FLUID (BEAKER) (test EDTA Tube raco=9431) POCT-GLUCOSE [id number] 18:48:00 Test Item Value Reference Range Comments POC-GLUCOSE METER (BEAKER) 105 mg/dL 70-110 TESTED AT [place] [id number] [facility] (test txry=6040) [facility] [address] BASIC METABOLIC [id number] 05:45:00 Test Item Value Reference Range Comments SODIUM (BEAKER) (test 133 meq/L 136-145 qkls=405) POTASSIUM (BEAKER) (test 4.3 meq/L 3.5-5.1 Specimen moderately eglp=623) hemolyzed CHLORIDE (BEAKER) (test 107 meq/L 98-107 ziqh=364) CO2 (BEAKER) (test 19 meq/L 22-29 zrft=876) BLOOD UREA NITROGEN 10 mg/dL 7-21 (BEAKER) (test jfqe=934) CREATININE (BEAKER) (test 0.86 mg/dL 0.57-1.25 Specimen moderately cksc=041) hemolyzed GLUCOSE RANDOM (BEAKER) 68 mg/dL 70-105 (test temi=378) CALCIUM (BEAKER) (test 7.5 mg/dL 8.4-10.2 wvln=990) EGFR (BEAKER) (test 94 mL/min/1.73 sq m ESTIMATED GFR IS NOT ynxw=2994) ACCURATE CREATININE CLEARANCE IN PREDICTING GLOMERULAR FILTRATION RATE. ESTIMATED GFR IS NOT APPLICABLE FOR DIALYSIS PATIENTS. Specimen slightly ictericHEPATIC FUNCTION [id number] 05:45:00 Test Item Value Reference Range Comments TOTAL PROTEIN (BEAKER) (test 5.9 gm/dL 6.0-8.3 Specimen moderately hemolyzed nwwo=894) ALBUMIN (BEAKER) (test 1.9 g/dL 3.5-5.0 Specimen moderately hemolyzed qvju=6792) BILIRUBIN TOTAL (BEAKER) (test 4.4 mg/dL 0.2-1.2 Specimen moderately hemolyzed dsgj=971) BILIRUBIN DIRECT (BEAKER) 2.6 mg/dL 0.1-0.5 Specimen moderately hemolyzed (test fujr=563) ALKALINE PHOSPHATASE (BEAKER) 86 U/L 40-150 (test adxh=099) AST (SGOT) (BEAKER) (test 74 U/L 5-34 Specimen moderately hemolyzed kvjo=025) ALT (SGPT) (BEAKER) (test 17 U/L 6-55 Specimen moderately jpqc=226) hemolyzed Specimen slightly ictericCBC W/PLT COUNT & AUTO [id number] 05:21 :00 Test Item Value Reference Range Comments WHITE BLOOD CELL COUNT (BEAKER) (test snvs=568) 3.5 K/ L 4.0-10.0 RED BLOOD CELL COUNT (BEAKER) (test qdfu=378) 2.06 M/ L 4.20-5.80 HEMOGLOBIN (BEAKER) (test vhjv=148) 7.9 GM/DL 13.0-16.8 HEMATOCRIT (BEAKER) (test uwad=894) 22.8 % 40.0-50.0 MEAN CORPUSCULAR VOLUME (BEAKER) (test orpy=919) 110.0 fL 82.0-98.0 MEAN CORPUSCULAR HEMOGLOBIN (BEAKER) (test 38.2 pg 27.0-33.0 mexx=050) MEAN CORPUSCULAR HEMOGLOBIN CONC (BEAKER) (test 34.6 GM/DL 32.0-36.0 ixjo=758) RED CELL DISTRIBUTION WIDTH (BEAKER) (test 13.5 % 10.3-14.2 toox=414) PLATELET COUNT (BEAKER) (test wdbn=091) 61 K/CU MM 150-430 MEAN PLATELET VOLUME (BEAKER) (test odpq=541) 6.8 fL 6.5-10.5 NUCLEATED RED BLOOD CELLS (BEAKER) (test 0 /100 WBC 0-0 mnhi=558) NEUTROPHILS RELATIVE PERCENT (BEAKER) (test 51 % mqzm=069) LYMPHOCYTES RELATIVE PERCENT (BEAKER) (test 24 % wiss=741) MONOCYTES RELATIVE PERCENT (BEAKER) (test 18 % nebe=177) EOSINOPHILS RELATIVE PERCENT (BEAKER) (test 7 % xthi=254) BASOPHILS RELATIVE PERCENT (BEAKER) (test 1 % wzph=270) NEUTROPHILS ABSOLUTE COUNT (BEAKER) (test 1.76 K/ L 1.80-8.00 tjkl=007) LYMPHOCYTES ABSOLUTE COUNT (BEAKER) (test 0.85 K/ L 1.48-4.50 ozil=744) MONOCYTES ABSOLUTE COUNT (BEAKER) (test qjkv=094) 0.61 K/ L 0.00-1.30 EOSINOPHILS ABSOLUTE COUNT (BEAKER) (test 0.23 K/ L 0.00-0.50 jrnx=230) BASOPHILS ABSOLUTE COUNT (BEAKER) (test rptw=621) 0.02 K/ L 0.00-0.20 0.00PROTHROMBIN [id number] 05:19:00 Test Item Value Reference Range Comments PROTIME (BEAKER) (test pfgr=237) 28.2 seconds 11.7-14.7 INR (BEAKER) (test qutw=812) 2.6 <=5.9 RECOMMENDED COUMADIN/WARFARIN INR THERAPY RANGESSTANDARD DOSE: 2.0 - 3.0 Includes: PROPHYLAXIS forvenous thrombosis, systemic embolization; TREATMENT for venous thrombosis and/or pulmonary embolus.HIGH RISK: Target INR is 2.5-3.5 for patients with mechanical heart valves.BODY FLUID CULTURE + GRAM [id number] 14:14:00 Test Item Value Reference Range Comments CULTURE (BEAKER) (test dujs=8389) No growth GRAM STAIN RESULT (BEAKER) (test 2+ WBCs vwts=0232) GRAM STAIN RESULT (BEAKER) (test No organisms seen lbws=61777) CBC W/PLT COUNT & AUTO [id number] 10:28:00 Test Item Value Reference Range Comments WHITE BLOOD CELL COUNT (BEAKER) (test lhpl=924) 3.6 K/ L 4.0-10.0 RED BLOOD CELL COUNT (BEAKER) (test ydck=933) 2.17 M/ L 4.20-5.80 HEMOGLOBIN (BEAKER) (test qvtt=480) 7.7 GM/DL 13.0-16.8 HEMATOCRIT (BEAKER) (test wacb=341) 23.8 % 40.0-50.0 MEAN CORPUSCULAR VOLUME (BEAKER) (test hows=960) 110.0 fL 82.0-98.0 MEAN CORPUSCULAR HEMOGLOBIN (BEAKER) (test 35.3 pg 27.0-33.0 owma=152) MEAN CORPUSCULAR HEMOGLOBIN CONC (BEAKER) (test 32.1 GM/DL 32.0-36.0 qbtl=441) RED CELL DISTRIBUTION WIDTH (BEAKER) (test 13.7 % 10.3-14.2 hkwc=943) PLATELET COUNT (BEAKER) (test hlnc=020) 62 K/CU MM 150-430 MEAN PLATELET VOLUME (BEAKER) (test wmky=792) 6.5 fL 6.5-10.5 NUCLEATED RED BLOOD CELLS (BEAKER) (test 0 /100 WBC 0-0 tmzd=565) NEUTROPHILS RELATIVE PERCENT (BEAKER) (test 58 % eolr=868) LYMPHOCYTES RELATIVE PERCENT (BEAKER) (test 18 % bvgj=284) MONOCYTES RELATIVE PERCENT (BEAKER) (test 17 % tkgn=094) EOSINOPHILS RELATIVE PERCENT (BEAKER) (test 8 % iexf=756) BASOPHILS RELATIVE PERCENT (BEAKER) (test 0 % iuwq=703) NEUTROPHILS ABSOLUTE COUNT (BEAKER) (test 2.10 K/ L 1.80-8.00 dpql=090) LYMPHOCYTES ABSOLUTE COUNT (BEAKER) (test 0.63 K/ L 1.48-4.50 wldp=167) MONOCYTES ABSOLUTE COUNT (BEAKER) (test mpib=009) 0.59 K/ L 0.00-1.30 EOSINOPHILS ABSOLUTE COUNT (BEAKER) (test 0.28 K/ L 0.00-0.50 dsrt=349) BASOPHILS ABSOLUTE COUNT (BEAKER) (test lzrv=905) 0.00 K/ L 0.00-0.20 [id number] 10:16:00 Test Item Value Reference Range Comments PROCALCITONIN (BEAKER) (test htum=6343) < ng/mL <0.05 SEPSIS RISK (ng/mL)Low: 0.05-0.50Intermediate: 0.51-2.00High: & gt;=2.01HEPATIC FUNCTION [id number] 06:26:00 Test Item Value Reference Range Comments TOTAL PROTEIN (BEAKER) (test delo=903) 5.6 gm/dL 6.0-8.3 ALBUMIN (BEAKER) (test qxfa=2686) 1.9 g/dL 3.5-5.0 BILIRUBIN TOTAL (BEAKER) (test tdfl=179) 4.7 mg/dL 0.2-1.2 BILIRUBIN DIRECT (BEAKER) (test baqp=944) 2.9 mg/dL 0.1-0.5 ALKALINE PHOSPHATASE (BEAKER) (test atoe=271) 85 U/L 40-150 AST (SGOT) (BEAKER) (test jvll=792) 53 U/L 5-34 ALT (SGPT) (BEAKER) (test gtks=755) 14 U/L 6-55 Specimen moderately ictericBASIC METABOLIC [id number] 06:26:00 Test Item Value Reference Range Comments SODIUM (BEAKER) (test 134 meq/L 136-145 uhts=899) POTASSIUM (BEAKER) (test 3.8 meq/L 3.5-5.1 mgvb=339) CHLORIDE (BEAKER) (test 107 meq/L 98-107 mlip=601) CO2 (BEAKER) (test 19 meq/L 22-29 scyr=920) BLOOD UREA NITROGEN 8 mg/dL 7-21 (BEAKER) (test stoi=746) CREATININE (BEAKER) (test 0.73 mg/dL 0.57-1.25 bgsi=314) GLUCOSE RANDOM (BEAKER) 73 mg/dL 70-105 (test ntka=264) CALCIUM (BEAKER) (test 7.2 mg/dL 8.4-10.2 zrvt=078) EGFR (BEAKER) (test 113 mL/min/1.73 sq m ESTIMATED GFR IS NOT ldkd=8824) ACCURATE CREATININE CLEARANCE IN PREDICTING GLOMERULAR FILTRATION RATE. ESTIMATED GFR IS NOT APPLICABLE FOR DIALYSIS PATIENTS. Specimen moderately ictericPROTHROMBIN [id number] 06:05:00 Test Item Value Reference Range Comments PROTIME (BEAKER) (test rhrc=944) 30.9 seconds 11.7-14.7 INR (BEAKER) (test iuwc=631) 3.0 <=5.9 RECOMMENDED COUMADIN/WARFARIN INR THERAPY RANGESSTANDARD DOSE: 2.0 - 3.0 Includes: PROPHYLAXIS forvenous thrombosis, systemic embolization; TREATMENT for venous thrombosis and/or pulmonary embolus.HIGH RISK: Target INR is 2.5-3.5 for patients with mechanical heart valves.[id number] 05:54:00 Test Item Value Reference Range Comments PREALBUMIN (BEAKER) (test dxpp=734) < mg/dL 14-45 URINE [id number] 12:11:00 Test Item Value Reference Range Comments CULTURE (BEAKER) (test mgtz=8349) No growth VANCOMYCIN LEVEL, [id number] 09:26:00 Test Item Value Reference Range Comments VANCOMYCIN TROUGH (BEAKER) (test ofep=487) 15.3 ug/mL 10.0-20.0 HEPATIC FUNCTION [id number] 06:17:00 Test Item Value Reference Range Comments TOTAL PROTEIN (BEAKER) (test azch=291) 5.6 gm/dL 6.0-8.3 ALBUMIN (BEAKER) (test lizh=4747) 2.0 g/dL 3.5-5.0 BILIRUBIN TOTAL (BEAKER) (test lfoa=842) 4.2 mg/dL 0.2-1.2 BILIRUBIN DIRECT (BEAKER) (test rwrb=400) 2.7 mg/dL 0.1-0.5 ALKALINE PHOSPHATASE (BEAKER) (test mhhn=418) 98 U/L 40-150 AST (SGOT) (BEAKER) (test wdlo=433) 45 U/L 5-34 ALT (SGPT) (BEAKER) (test kxvk=029) 12 U/L 6-55 Specimen slightly ictericBASIC METABOLIC [id number] 06:17:00 Test Item Value Reference Range Comments SODIUM (BEAKER) (test 133 meq/L 136-145 ecwp=390) POTASSIUM (BEAKER) (test 3.4 meq/L 3.5-5.1 ikgw=674) CHLORIDE (BEAKER) (test 107 meq/L 98-107 sqks=449) CO2 (BEAKER) (test 22 meq/L 22-29 xktl=533) BLOOD UREA NITROGEN 7 mg/dL 7-21 (BEAKER) (test wbxh=440) CREATININE (BEAKER) (test 0.73 mg/dL 0.57-1.25 zfej=373) GLUCOSE RANDOM (BEAKER) 87 mg/dL 70-105 (test kwkk=843) CALCIUM (BEAKER) (test 7.2 mg/dL 8.4-10.2 wwhi=936) EGFR (BEAKER) (test 113 mL/min/1.73 sq m ESTIMATED GFR IS NOT ttaa=5350) ACCURATE CREATININE CLEARANCE IN PREDICTING GLOMERULAR FILTRATION RATE. ESTIMATED GFR IS NOT APPLICABLE FOR DIALYSIS PATIENTS. Specimen slightly ictericPROTHROMBIN [id number] 06:04:00 Test Item Value Reference Range Comments PROTIME (BEAKER) (test dcwq=421) 31.7 seconds 11.7-14.7 INR (BEAKER) (test ctrd=779) 3.0 <=5.9 RECOMMENDED COUMADIN/WARFARIN INR THERAPY RANGESSTANDARD DOSE: 2.0 - 3.0 Includes: PROPHYLAXIS forvenous thrombosis, systemic embolization; TREATMENT for venous thrombosis and/or pulmonary embolus.HIGH RISK: Target INR is 2.5-3.5 for patients with mechanical heart valves.VITAMIN B12 AND [id number] 19:36 :00 Test Item Value Reference Range Comments VITAMIN B12 (BEAKER) (test qiql=295) 1121 pg/mL 213-816 FOLATE (BEAKER) (test pgby=671) 18.3 ng/mL >=7.0 Effective 09/13/2014: Folate Reference Range ChangeNew: >=7.0 Previous: & gt;=5.4VITAMIN B12 AND [id number] 14:57:00 Test Item Value Reference Range Comments VITAMIN B12 (BEAKER) (test rmod=767) 1325 pg/mL 213-816 FOLATE (BEAKER) (test qdjo=868) 8.3 ng/mL >=7.0 Effective 09/13/2014: Folate Reference Range ChangeNew: >=7.0 Previous: & gt;=5.4ANTI-NUCLEAR ANTIBODY (CHERYL)2017-02-03 13:56:00 Test Item Value Reference Range Comments ANTI-NUCLEAR ANTIBODY (CHERYL) (BEAKER) (test Negative Negative bdad=321) HEPATITIS B CORE ANTIBODY, [id number] 12:27:00 Test Item Value Reference Range Comments HEPATITIS B CORE TOTAL ANTIBODY (BEAKER) (test Nonreactive Nonreactive sdcp=581) CRYPTOCOCCAL [id number] 11:25:00 Test Item Value Reference Range Comments CRYPTOCOCCAL ANTIGEN, SERUM (BEAKER) (test Negative Negative, Interference ihju=2959) HEPATITIS B SURFACE [id number] 11:15:00 Test Item Value Reference Range Comments HEPATITIS B SURFACE ANTIBODY (BEAKER) (test < mIU/mL <8.0 mldh=557) HEPATITIS B SURFACE [id number] 09:53:00 Test Item Value Reference Range Comments HEPATITIS B SURFACE ANTIGEN (2) (BEAKER) (test Nonreactive Nonreactive umvv=7524) HIV-1 ANTIGEN WITH HIV-1/2 [id number] 09:53:00 Test Item Value Reference Range Comments HIV-1 ANTIGEN WITH HIV 1\\T\\2 ANTIBODY (2) Nonreactive Nonreactive (BEAKER) (test pegh=5568) HEPATIC FUNCTION [id number] 07:01:00 Test Item Value Reference Range Comments TOTAL PROTEIN (BEAKER) (test nhxz=404) 5.5 gm/dL 6.0-8.3 ALBUMIN (BEAKER) (test tjht=9049) 2.0 g/dL 3.5-5.0 BILIRUBIN TOTAL (BEAKER) (test zror=559) 3.8 mg/dL 0.2-1.2 BILIRUBIN DIRECT (BEAKER) (test ayfr=138) 2.5 mg/dL 0.1-0.5 ALKALINE PHOSPHATASE (BEAKER) (test conb=069) 108 U/L 40-150 AST (SGOT) (BEAKER) (test ysvo=766) 40 U/L 5-34 ALT (SGPT) (BEAKER) (test voue=268) 10 U/L 6-55 Specimen slightly ictericBASIC METABOLIC [id number] 07:01:00 Test Item Value Reference Range Comments SODIUM (BEAKER) (test 133 meq/L 136-145 nvow=256) POTASSIUM (BEAKER) (test 3.7 meq/L 3.5-5.1 rhcz=348) CHLORIDE (BEAKER) (test 108 meq/L 98-107 mjww=785) CO2 (BEAKER) (test 20 meq/L 22-29 bsmw=546) BLOOD UREA NITROGEN 7 mg/dL 7-21 (BEAKER) (test obdq=540) CREATININE (BEAKER) (test 0.76 mg/dL 0.57-1.25 aczn=632) GLUCOSE RANDOM (BEAKER) 100 mg/dL 70-105 (test lwmi=438) CALCIUM (BEAKER) (test 7.3 mg/dL 8.4-10.2 wqkv=395) EGFR (BEAKER) (test 108 mL/min/1.73 sq m ESTIMATED GFR IS NOT bbqk=4179) ACCURATE CREATININE CLEARANCE IN PREDICTING GLOMERULAR FILTRATION RATE. ESTIMATED GFR IS NOT APPLICABLE FOR DIALYSIS PATIENTS. Specimen slightly ictericCBC W/PLT COUNT & AUTO [id number] 06:53 :00 Test Item Value Reference Range Comments WHITE BLOOD CELL COUNT (BEAKER) (test fktx=012) 3.5 K/ L 4.0-10.0 RED BLOOD CELL COUNT (BEAKER) (test vfkw=189) 1.83 M/ L 4.20-5.80 HEMOGLOBIN (BEAKER) (test zgnr=586) 7.3 GM/DL 13.0-16.8 HEMATOCRIT (BEAKER) (test cmsk=495) 19.9 % 40.0-50.0 MEAN CORPUSCULAR VOLUME (BEAKER) (test amuu=404) 109.0 fL 82.0-98.0 MEAN CORPUSCULAR HEMOGLOBIN (BEAKER) (test 39.9 pg 27.0-33.0 mpdz=647) MEAN CORPUSCULAR HEMOGLOBIN CONC (BEAKER) (test 36.6 GM/DL 32.0-36.0 oyva=700) RED CELL DISTRIBUTION WIDTH (BEAKER) (test 14.3 % 10.3-14.2 ursb=344) PLATELET COUNT (BEAKER) (test jpgd=645) 35 K/CU MM 150-430 MEAN PLATELET VOLUME (BEAKER) (test nkov=510) 6.6 fL 6.5-10.5 NUCLEATED RED BLOOD CELLS (BEAKER) (test 0 /100 WBC 0-0 pdmn=414) NEUTROPHILS RELATIVE PERCENT (BEAKER) (test 60 % zyod=747) LYMPHOCYTES RELATIVE PERCENT (BEAKER) (test 18 % jclx=934) MONOCYTES RELATIVE PERCENT (BEAKER) (test 17 % erva=428) EOSINOPHILS RELATIVE PERCENT (BEAKER) (test 6 % srqv=235) BASOPHILS RELATIVE PERCENT (BEAKER) (test 0 % jhvz=748) NEUTROPHILS ABSOLUTE COUNT (BEAKER) (test 2.06 K/ L 1.80-8.00 xmsh=645) LYMPHOCYTES ABSOLUTE COUNT (BEAKER) (test 0.61 K/ L 1.48-4.50 hxvo=634) MONOCYTES ABSOLUTE COUNT (BEAKER) (test qima=348) 0.58 K/ L 0.00-1.30 EOSINOPHILS ABSOLUTE COUNT (BEAKER) (test 0.19 K/ L 0.00-0.50 pysa=483) BASOPHILS ABSOLUTE COUNT (BEAKER) (test jwml=084) 0.01 K/ L 0.00-0.20 0.00PROTHROMBIN [id number] 06:39:00 Test Item Value Reference Range Comments PROTIME (BEAKER) (test zaww=192) 30.6 seconds 11.7-14.7 INR (BEAKER) (test nqps=794) 2.9 <=5.9 RECOMMENDED COUMADIN/WARFARIN INR THERAPY RANGESSTANDARD DOSE: 2.0 - 3.0 Includes: PROPHYLAXIS forvenous thrombosis, systemic embolization; TREATMENT for venous thrombosis and/or pulmonary embolus.HIGH RISK: Target INR is 2.5-3.5 for patients with mechanical heart valves.URINALYSIS W/ [id number] 16 :58:00 Test Item Value Reference Range Comments COLOR (BEAKER) (test pgwg=697) Yellow CLARITY (BEAKER) (test huye=625) Clear SPECIFIC GRAVITY UA (BEAKER) (test 1.025 1.001-1.035 qjve=819) PH UA (BEAKER) (test popo=156) 7.0 5.0-8.0 PROTEIN UA (BEAKER) (test bxzw=345) Negative Negative GLUCOSE UA (BEAKER) (test owsg=044) Negative Negative KETONES UA (BEAKER) (test aagy=843) Negative Negative BILIRUBIN UA (BEAKER) (test sdls=572) Positive Negative BLOOD UA (BEAKER) (test zgww=631) Negative Negative NITRITE UA (BEAKER) (test anrf=953) Negative Negative LEUKOCYTE ESTERASE UA (BEAKER) (test Negative Negative bbhw=639) UROBILINOGEN UA (BEAKER) (test zcio=780) 8.0 mg/dL 0.2-1.0 RBC UA (BEAKER) (test mafo=554) 0 /HPF WBC UA (BEAKER) (test vkjl=690) 2 /HPF MUCUS (BEAKER) (test hdbf=4500) Rare HYALINE CASTS (BEAKER) (test fkmk=551) 3 /LPF SOURCE(BEAKER) (test vjrm=9189) Urine, Clean Catch [id number] 13:32:00 Test Item Value Reference Range Comments FERRITIN (BEAKER) (test fvmd=253) 116 ng/mL 5-275 Effective 09/13/2014: Reference Range ChangeNew: Male 5-275 Previous: Male 22-322 Female 5-275 Female 10-291HEPATITIS A ANTIBODY, [id number] 13:19:00 Test Item Value Reference Range Comments HEPATITIS A IGG ANTIBODY (BEAKER) (test gyjd=2187) Reactive Nonreactive ALPHA FETOPROTEIN (AFP), TUMOR [id number] 13:17:00 Test Item Value Reference Range Comments ALPHA-FETOPROTEIN (BEAKER) (test nolu=1084) 4.5 ng/mL <10.0 Effective 09/13/2014: Reference Range ChangeNew: <10.0 Previous: 0.0- 8.0HEPATITIS C [id number] 13:17:00 Test Item Value Reference Range Comments HEPATITIS C ANTIBODY (BEAKER) (test chmu=821) Nonreactive Nonreactive BODY FLUID CELL COUNT WITH [id number] 13:03:00 Test Item Value Reference Range Comments APPEARANCE FLUID (BEAKER) (test yylx=774) Cloudy Clear COLOR FLUID (BEAKER) (test obyg=464) Yellow Colorless, Straw RBC FLUID (BEAKER) (test qtqt=674) 1519 /cu mm <=1 ADJUSTED WBC FLUID (BEAKER) (test hkhs=0798) 108 /cu mm <=5 LINING CELLS (BEAKER) (test thzu=2322) 14 /cu mm <=1 NEUTROPHILS FLUID (BEAKER) (test ittz=8857) 11 % LYMPHS FLUID (BEAKER) (test ktnp=961) 30 % MONO/MACROPHAGE FLUID (BEAKER) (test fkzp=624) 59 % EOSINOPHILS FLUID (BEAKER) (test mdan=250) 0 % BASO FLUID (BEAKER) (test fshz=781) 0 % CONTAINER BODY FLUID (BEAKER) (test xnww=9240) EDTA Tube BASIC METABOLIC [id number] 12:56:00 Test Item Value Reference Range Comments SODIUM (BEAKER) (test 131 meq/L 136-145 pfsv=491) POTASSIUM (BEAKER) (test 4.0 meq/L 3.5-5.1 Specimen moderately jlbl=945) hemolyzed CHLORIDE (BEAKER) (test 105 meq/L 98-107 fwyh=082) CO2 (BEAKER) (test 18 meq/L 22-29 beaz=139) BLOOD UREA NITROGEN 6 mg/dL 7-21 (BEAKER) (test etsk=349) CREATININE (BEAKER) (test 0.72 mg/dL 0.57-1.25 Specimen moderately tpmb=338) hemolyzed GLUCOSE RANDOM (BEAKER) 103 mg/dL 70-105 (test bcvp=194) CALCIUM (BEAKER) (test 7.4 mg/dL 8.4-10.2 tnad=919) EGFR (BEAKER) (test 115 mL/min/1.73 sq m ESTIMATED GFR IS NOT pusk=4961) ACCURATE CREATININE CLEARANCE IN PREDICTING GLOMERULAR FILTRATION RATE. ESTIMATED GFR IS NOT APPLICABLE FOR DIALYSIS PATIENTS. Specimen moderately ictericIRON, TIBC, % SAT. (WITHOUT FERRITIN)2017-02-02 12:56 :00 Test Item Value Reference Range Comments IRON (BEAKER) (test sdke=010) 55 ug/dL 40-160 TOTAL IRON BINDING CAPACITY (BEAKER) (test 175 ug/dL 250-450 wtqz=922) IRON % SATURATION (2) (BEAKER) (test yiqa=4937) 31 % 20-55 HEPATIC FUNCTION [id number] 12:50:00 Test Item Value Reference Range Comments TOTAL PROTEIN (BEAKER) (test 6.7 gm/dL 6.0-8.3 Specimen moderately hemolyzed tboh=130) ALBUMIN (BEAKER) (test 2.0 g/dL 3.5-5.0 Specimen moderately hemolyzed uxgg=0525) BILIRUBIN TOTAL (BEAKER) (test 5.1 mg/dL 0.2-1.2 Specimen moderately hemolyzed enrx=140) BILIRUBIN DIRECT (BEAKER) 2.8 mg/dL 0.1-0.5 Specimen moderately hemolyzed (test oxcy=843) ALKALINE PHOSPHATASE (BEAKER) 99 U/L 40-150 (test zaai=438) AST (SGOT) (BEAKER) (test 62 U/L 5-34 Specimen moderately hemolyzed gxwm=964) ALT (SGPT) (BEAKER) (test 15 U/L 6-55 Specimen moderately kxwo=997) hemolyzed Specimen moderately ictericCBC W/PLT COUNT & AUTO [id number] 12: 47:00 Test Item Value Reference Range Comments WHITE BLOOD CELL COUNT (BEAKER) (test pyyk=608) 3.3 K/ L 4.0-10.0 RED BLOOD CELL COUNT (BEAKER) (test iepa=491) 2.08 M/ L 4.20-5.80 HEMOGLOBIN (BEAKER) (test ftea=442) 7.8 GM/DL 13.0-16.8 HEMATOCRIT (BEAKER) (test pmym=795) 22.9 % 40.0-50.0 MEAN CORPUSCULAR VOLUME (BEAKER) (test ifia=379) 110.0 fL 82.0-98.0 MEAN CORPUSCULAR HEMOGLOBIN (BEAKER) (test 37.4 pg 27.0-33.0 zsec=840) MEAN CORPUSCULAR HEMOGLOBIN CONC (BEAKER) (test 34.1 GM/DL 32.0-36.0 blay=987) RED CELL DISTRIBUTION WIDTH (BEAKER) (test 15.0 % 10.3-14.2 lnvw=969) PLATELET COUNT (BEAKER) (test rncq=682) 48 K/CU MM 150-430 MEAN PLATELET VOLUME (BEAKER) (test ospu=034) 6.6 fL 6.5-10.5 NUCLEATED RED BLOOD CELLS (BEAKER) (test 0 /100 WBC 0-0 hkwu=714) NEUTROPHILS RELATIVE PERCENT (BEAKER) (test 62 % bgfs=557) LYMPHOCYTES RELATIVE PERCENT (BEAKER) (test 17 % nums=737) MONOCYTES RELATIVE PERCENT (BEAKER) (test 15 % orry=532) EOSINOPHILS RELATIVE PERCENT (BEAKER) (test 6 % jgvg=027) BASOPHILS RELATIVE PERCENT (BEAKER) (test 0 % fqhu=710) NEUTROPHILS ABSOLUTE COUNT (BEAKER) (test 2.03 K/ L 1.80-8.00 znru=264) LYMPHOCYTES ABSOLUTE COUNT (BEAKER) (test 0.57 K/ L 1.48-4.50 bqki=919) MONOCYTES ABSOLUTE COUNT (BEAKER) (test hjpj=199) 0.48 K/ L 0.00-1.30 EOSINOPHILS ABSOLUTE COUNT (BEAKER) (test 0.19 K/ L 0.00-0.50 shjw=482) BASOPHILS ABSOLUTE COUNT (BEAKER) (test kkrw=522) 0.01 K/ L 0.00-0.20 0.00PROTHROMBIN [id number] 12:42:00 Test Item Value Reference Range Comments PROTIME (BEAKER) (test uvyk=936) 27.0 seconds 11.7-14.7 INR (BEAKER) (test yvki=466) 2.5 <=5.9 RECOMMENDED COUMADIN/WARFARIN INR THERAPY RANGESSTANDARD DOSE: 2.0 - 3.0 Includes: PROPHYLAXIS forvenous thrombosis, systemic embolization; TREATMENT for venous thrombosis and/or pulmonary embolus.HIGH RISK: Target INR is 2.5-3.5 for patients with mechanical heart valves.ALBUMIN, BODY [id number] 11:46:00 Test Item Value Reference Range Comments ALBUMIN FLUID (BEAKER) (test ltns=808) 0.5 gm/dL Reference Range: No Normals Assay performance has not been validated for this type of specimen.PROTEIN, BODY [id number] 11:42:00 Test Item Value Reference Range Comments PROTEIN FLUID (BEAKER) (test ortc=113) 1.3 g/dL Absence of reference range indicates that normals have not been defined.Assay performance has not been validated for this type of specimen.
--- OUTSIDE RECORDS SUMMARY | 2018-12-03 18:45 | XMS REPORT ---
[...] Status Dosage System Date Date Ondansetron HCl [facility] 68622481247 4 MG Orally Active 1 tab every 8 hours as needed for Nausea and vomiting Hydrocortisone ND 57166662740 20 MG Orally AM Active 1 tablet Once a day with food or milk Magnesium Oxide ND 73356351173 400 MG Orally Active 1 tablet BID as needed Rifaximin [facility] [address]-87 550 MG Orally Active 1 tablet Twice a day Pantoprazole ND 89693421191 40 MG Orally Active 1 tablet Sodium Once a day Sodium Chloride ND 87136557715 1 GM Orally TID Active 2 tablets Lactulose ND 50803989503 10 GM/15ML Active 15 ml Orally TID Ondansetron HCl [facility] 33805094558 4 MG Active 1 TAB EVERY 8 HOURS NEEDED FOR NAUSEA AND VOMITING ORALLY 10 DAYS Citalopram [facility] 39779399686 40 MG Orally Active take one Hydrobromide once a day daily Hydrocortisone [facility] 65438931756 10 MG Orally PM Active 1 tablet Once a day with food or milk NuFera [facility] 20716773019 - Orally once a Active 1 tab day Citalopram [facility] 01797768721 10 MG Active TAKE ONE Hydrobromide DAILY Ursodiol [facility] 78217883176 300 MG Orally Active not defined Midodrine HCl [facility] 60949117690 10 MG Orally Active 1 tablet Three times a day Results No Known Results Summary Purpose eClinicalWorks Submission
--- OUTSIDE RECORDS SUMMARY | 2018-12-03 18:45 | XMS REPORT ---
[...] Date Date Midodrine HCl [facility] 35569209252 10 MG Orally Active 1 tablet Three times a day Pantoprazole [facility] 33289367816 40 MG Orally Active 1 tablet Sodium Once a day Sodium Chloride ND 97670485785 1 GM Orally TID Active 2 tablets Ondansetron HCl ND 95088361393 4 MG Orally Active 1 tab every 8 hours as needed for Nausea and vomiting Hydrocortisone ND 98999336775 20 MG Orally AM Active 1 tablet Once a day with food or milk Ursodiol ND 84303101126 300 MG Orally Active not defined Lactulose ND 14706791406 10 GM/15ML Active 15 ml Orally TID Citalopram [facility] 85985580177 10 MG Active TAKE ONE Hydrobromide DAILY Rifaximin [facility] [address]-09 550 MG Orally Active 1 tablet Twice a day Ondansetron HCl [facility] 17675470026 4 MG Active 1 TAB EVERY 8 HOURS NEEDED FOR NAUSEA AND VOMITING ORALLY 10 DAYS Magnesium Oxide [facility] 15121042513 400 MG Orally Active 1 tablet BID as needed NuFera [facility] 94097785179 - Orally once a Active 1 tab day Hydrocortisone [facility] 80691293441 10 MG Orally PM Active 1 tablet Once a day with food or milk Results No Known Results Summary Purpose eClinicalWorks Submission
--- OUTSIDE RECORDS SUMMARY | 2018-12-03 18:45 | XMS REPORT ---
:1965 Author Organization e[employer]Works Care Team Providers Name Role Phone Carlos Payne Provider Role Unavailable Allergies, Adverse Reactions, Alerts Substance Reaction Event Type N.K.D.A. Info Not Available Non Drug Allergy Problems Problem Type Condition Code Onset Dates Condition Status Assessment Umbilical hernia without K42.9 Active obstruction and without gangrene Problem Cirrhosis of liver K74.60 Active Assessment Vertebral compression fracture M48.50XA Active Problem Depression with anxiety F41.8 Active Assessment History of fall Z91.81 Active Problem GERD without esophagitis K21.9 Active Problem Anemia, chronic disease D63.8 Active Problem Alcoholic cirrhosis of liver with K70.31 Active ascites Problem History of alcohol abuse Z87.898 Active Problem Encephalopathy, hepatic K72.90 Active Assessment Encephalopathy, hepatic K72.90 Active Assessment Orthostatic hypotension I95.1 Active Problem Vertebral compression fracture M48.50XA Active Assessment History of alcohol abuse Z87.898 Active Problem Orthostatic hypotension I95.1 Active Problem Ascites R18.8 Active Problem Hypomagnesemia E83.42 Active Problem Thrombocytopenia D69.6 Active Assessment GERD without esophagitis K21.9 Active Assessment Depression with anxiety F41.8 Active Assessment Thrombocytopenia D69.6 Active Assessment Hypomagnesemia E83.42 Active Problem Chronic alcohol use F10.10 Active Assessment Anemia, chronic disease D63.8 Active Assessment Alcoholic cirrhosis of liver with K70.31 Active ascites Medications Medication Code Code Instructions Start End Status Dosage System Date Date Ondansetron HCl [facility] 89126689597 4 MG Orally Active 1 tab every 8 hours as needed for Nausea and vomiting Ondansetron HCl ND 73275502343 4 MG Orally Active 1 tablet every 6 hours as needed for nausea/vom iting Citalopram [facility] 13476746256 10 MG Active TAKE ONE Hydrobromide DAILY Hydrocortisone ND 29256916086 20 MG Orally AM Active 1 tablet Once a day with food or milk Lactulose [facility] 07433726708 10 GM/15ML Active 15 ml Orally TID NuFera NDC 69174548419 - Orally once a Active 1 tab day Sodium Chloride [facility] 64406659025 1 GM Orally TID Active 2 tablets Ensure High [facility] 61419265624 - Orally every Oct 19, Active drink 320 Protein 4-6 hours 2018 ml Magnesium Oxide [facility] 06281269042 400 MG Orally Active 1 tablet BID as needed Hydrocortisone [facility] 86024472247 10 MG Orally PM Active 1 tablet Once a day with food or milk Ondansetron HCl [facility] 38906008600 4 MG Active 1 TAB EVERY 8 HOURS NEEDED FOR NAUSEA AND VOMITING ORALLY 10 DAYS Midodrine HCl [facility] 70547177937 10 MG Orally Active 1 tablet twice a day Ursodiol [facility] 38407199794 300 MG Orally Active not defined Rifaximin [facility] [address]-54 550 MG Orally Active 1 tablet Twice a day Citalopram [facility] 67919809871 40 MG Orally Active take one Hydrobromide once a day daily Pantoprazole [facility] 80571616992 40 MG Orally Active 1 tablet Sodium Once a day Results No Known Results Summary Purpose eClinicalWorks Submission
--- OUTSIDE RECORDS SUMMARY | 2018-12-03 18:45 | XMS REPORT ---
[...] Hypomagnesemia E83.42 Active Problem Thrombocytopenia D69.6 Active Problem Chronic alcohol use F10.10 Active Problem Cirrhosis of liver K74.60 Active Assessment Alcoholic cirrhosis of liver with K70.31 Active ascites Problem Depression with anxiety F41.8 Active Medications Medication Code Code Instructions Start End Status Dosage System Date Date Ondansetron HCl [facility] 98627667925 4 MG Orally Active 1 tablet every 6 hours as needed for nausea/vo miting Results No Known Results Summary Purpose [employer] Submission
--- OUTSIDE RECORDS SUMMARY | 2018-12-03 18:45 | XMS REPORT ---
[...] Status Dosage System Date Date Ensure High [facility] 71588145760 - Orally every Oct 19, Active drink 320 Protein 4-6 hours 2018 ml Ondansetron HCl ND 36211297426 4 MG Orally Active 1 tablet every 6 hours as needed for nausea/vo miting Results No Known Results Summary Purpose eClinicalWorks Submission
[2018-12-03 19:49] LABS: Absolute Lymphocytes (CBC) 0.3 K/uL (0.7-4.9); Absolute Monocytes 0.2 K/uL (0.1-1.3); Absolute Neutrophil 4.2 K/uL (1.8-8.0); Basophils % 0.1 % (0-1.3); Eosinophils % 0.4 % (0-4.4); Hematocrit 32.4 % (39.6-49.0); Lymphocytes % 6.7 % (15.3-44.8); Monocytes % 3.8 % (3.3-12.3)
[2018-12-03 20:02] LABS: Albumin 3.8 g/dL (3.4-5.0); Bilirubin Total 2.9 mg/dL (0.2-1.0); Potassium 4.8 mmol/L (3.5-5.1); Protein, Total 6.4 g/dL (6.4-8.2)
[2018-12-03] MEDS ORDERED: PANTOPRAZOLE 40 MG INJ ONE (20:18)
[2018-12-03] MEDS ORDERED: NA CHLORIDE 0.9% 1,000 ML ONE (20:18)
[2018-12-03] MEDS ORDERED: CEFTRIAXONE/SWI 1gm 1 GM/10 ML SYR ONE (20:18)
--- NOTE | 2018-12-03 20:22 | RAD REPORT ---
EXAM DESCRIPTION: RAD - Chest Single View - 12/03/2018 8:05 pm CLINICAL HISTORY: ABDOMINAL DISTENTION Chest pain. COMPARISON: Chest Single View dated 11/10/2018; Chest Single View dated 10/28/2018; Chest Single View d ated 10/02/2018; Chest Single View dated 09/22/2018 FINDINGS: Portable technique limits examination quality. The lungs are underinflated which results in vascular crowding. The heart is normal in size. No displ aced fractures. IMPRESSION: Underinflated lungs.
[2018-12-03 20:53] LABS: Protime INR 1.64
--- NOTE | 2018-12-03 20:57 | ER ---
Nurse's Notes [facility] Name: Abhishek Davis Age: 53 yrs Sex: Male : 1965 Arrival Date: 12/03/2018 Time: 18:30 Bed 23 Private MD: Diagnosis: Unspecified cirrhosis of liver;Ascites;Encephalopathy, unspecified;Unspecified kidney failure;Abdominal tenderness;Ileus, unspecified Presentation: 12/03 18:30 Presenting complaint: EMS states: patient is complaining of abdominal pain today. mg2 history of liver cirrhosis, dialysis done last Friday, missed his dialysis session last Friday. Paracentesis done last week. BGL on scene was 168 mg/dl,, NSR EKG. alert and oriented. Transition of care: patient was not received from another setting of care. Onset of symptoms was December 03, 2018. Risk Assessment: Do you want to hurt yourself or someone else? Patient reports no desire to harm self or others. Initial Sepsis Screen: Does the patient meet any 2 criteria? No. Patient's initial sepsis screen is negative. Does the patient have a suspected source of infection? No. Patient's initial sepsis screen is negative. Care prior to arrival: None. 18:30 Method Of Arrival: EMS: [facility] mg2 18:30 Acuity: KACEY 3 mg2 Historical: - Allergies: 18:36 No Known Allergies; mg2 - Home Meds: 18:52 Centrum Oral daily [Active]; citalopram 10 mg tab 1 tab once daily [Active]; mg2 hydroxyzine HCl 25 mg Oral tab PRN [Active]; Lactulose Oral 30 mL 3 times per day [Active]; Lasix 40 mg Oral tab 1 tab once daily [Active]; mag oxide 400 mg daily [Active]; midodrine 5 mg Oral tab twice a day [Active]; ondansetron HCl 4 mg Oral tab PRN [Active]; pantoprazole 40 mg Oral TbEC 2 tabs once daily [Active]; ursodiol 300 mg Oral cap 1 cap 2 times per day [Active]; vitamin with iron daily [Active]; Xifaxan 550 mg Oral tab 1 tab 2 times per day [Active]; - PMHx: 18:36 Anemia; Cirrhosis; renal insufficiency; Umbilical hernia; mg2 - Immunization history:: Flu vaccine is up to date. - Social history:: Smoking status: Patient/guardian denies using tobacco, Patient/guardian denies using alcohol, street drugs, IV drugs. - Ebola Screening: : No symptoms or risks identified at this time. - Family history:: not pertinent. Screenin:48 Abuse screen: Denies threats or abuse. Denies injuries from another. Nutritional mg2 screening: No deficits noted. Tuberculosis screening: No symptoms or risk factors identified. Fall Risk IV access (20 points). Assessment: 18:49 General: Appears in no apparent distress. comfortable, Behavior is calm, cooperative. mg2 Pain: Complains of pain in abdomen Pain does not radiate. Pain currently is 10 out of 10 on a pain scale. Quality of pain is described as aching, Pain began gradually, 1 day ago. Is intermittent. Neuro: Level of Consciousness is awake, alert, obeys commands, Oriented to person, place, time, situation. Cardiovascular: Capillary refill < 3 seconds Patient's skin is warm and dry. Respiratory: Airway is patent Respiratory effort is even, unlabored, Respiratory pattern is regular, symmetrical. GI: Abdomen is distended, noted to have ascites, Reports lower abdominal pain, upper abdominal pain. : No signs and/or symptoms were reported regarding the genitourinary system. EENT: No signs and/or symptoms were reported regarding the EENT system. Derm: Skin is intact, is healthy with good turgor, Skin is icteric. Musculoskeletal: Circulation, motion, and sensation intact. Capillary refill < 3 seconds. 21:00 Reassessment: Patient appears in no apparent distress at this time. No changes from tl3 previously documented assessment. Patient and/or family updated on plan of care and expected duration. Pain level reassessed. Patient is alert, oriented x 3, equal unlabored respirations, skin warm/dry/pink. awaiting bed assignment. 23:52 Reassessment: Patient appears in no apparent distress at this time. No changes from tl3 previously documented assessment. Patient and/or family updated on plan of care and expected duration. Pain level reassessed. Patient is alert, oriented x 3, equal unlabored respirations, skin warm/dry/pink. 08 00:29 Reassessment: No changes from previously documented assessment. Patient and/or family tl3 updated on plan of care and expected duration. Pain level reassessed. Patient is alert, oriented x 3, equal unlabored respirations, skin warm/dry/pink. room assigned and report called. Vital Signs: 12/03 18:33 BP 123 / 95; Pulse 79; Resp 18; Pulse Ox 100% on R/A; Weight 68.04 kg; Height 6 ft. 0 mg2 in. (182.88 cm); Pain 10/10; 18:38 Temp 98(O); tl3 19:15 BP 112 / 80; Pulse 80; Resp 18; Pulse Ox 100% ; tl3 20:00 BP 129 / 98; Pulse 74; Resp 18; Pulse Ox 100% on R/A; tl3 22:00 BP 131 / 99; Pulse 72; Resp 18; Pulse Ox 98% on R/A; tl3 23:58 BP 119 / 92; Pulse 75; Resp 16; Pulse Ox 100% on R/A; tl3 18:33 Body Mass Index 20.34 (68.04 kg, 182.88 cm) mg2 ED Course: 18:30 Patient arrived in ED. mg2 18:33 Triage completed. mg2 18:37 Amada Lopez, NIYA is Primary Nurse. tl3 18:48 Inserted saline lock: 20 gauge in right antecubital area, using aseptic technique. mg2 Blood collected. 18:49 Patient has correct armband on for positive identification. Pulse ox on. NIBP on. Door mg2 closed. Warm blanket given. 18:51 Arm band placed on. mg2 19:07 Stanislaw Stratton MD is Attending Physician. marquise 19:45 Initial lab(s) drawn, by ED staff, sent to lab. jp3 20:05 XRAY Chest (1 view) In Process Unspecified. EDMS 20:10 Lab(s) recollected, by me, sent to lab. First set of blood cultures drawn Right AC. jp3 20:30 Second set of blood cultures drawn Left AC. jp3 20:38 Lactate Sent. jp3 20:38 Blood Culture Adult (2) Sent. jp3 20:38 AMMONIA Sent. jp3 20:53 Bobbi Moe MD is Hospitalizing Provider. marquise 21:[address] via stretcher. vm2 21:35 CT completed. Patient tolerated procedure well. Patient moved back from CT. vm2 21:45 Abdomen In Process Unspecified. EDMS 22:42 Urine Dipstick--Ancillary (enter results) Sent. tl3 23:58 No provider procedures requiring assistance completed. Patient admitted, IV remains in tl3 place. Administered Medications: 20:18 Drug: Rocephin - (cefTRIAXone) 1 grams Route: IVPB; Infused Over: 30 mins; Site: right tl3 antecubital; Delivery: Primary tubing; 20:19 Follow up: IV Status: Completed infusion; IV Intake: 20ml tl3 20:19 Drug: NS 0.9% 1000 ml Route: IV; Rate: 75 ml/hr; Site: right antecubital; Delivery: tl3 Primary tubing; 23:59 Follow up: IV Status: Infusion continued upon admission tl3 20:19 Drug: ProTONIX 40 mg Route: IVP; Infused Over: 2 mins; Site: right antecubital; tl3 23:58 Follow up: Response: No adverse reaction tl3 12/04 00:31 Drug: Lactulose 30 grams Volume: 45 ml; Route: PO; tl3 Intake: 12/03 20:19 IV: 20ml; Total: 20ml. tl3 Outcome: 20:56 Decision to Hospitalize by Provider. marquise 12/04 00:29 Admitted to Med/surg accompanied by tech, via stretcher, with chart. tl3 Condition: stable Instructed on the need for admit. 00:40 Patient left the ED. tl3 Signatures: Dispatcher [employer] EDStanislaw Khan MD MD cha McGuire, [facility] Amada Lopez RN RN tl3 Miguel Farrell RN RN mg2 Larry Varner 3
--- NOTE | 2018-12-03 20:58 | EDPHYS ---
Physician Documentation [facility] Name: Abhishek Davis Age: 53 yrs Sex: Male : 1965 Arrival Date: 12/03/2018 Time: 18:30 Bed 23 Private MD: ED Physician Stanislaw Stratton HPI: 12/03 19:48 This 53 yrs old Male presents to ER via EMS with complaints of ascites, marquise abdominal pain and ams. 19:48 The patient presents with abdominal pain. Onset: The symptoms/episode began/occurred 3 marquise day(s) ago. hx cirrhiosis. The patient presents with decreased mental status. Onset: The symptoms/episode began/occurred 2 day(s) ago. Possible causes: encephlopathy. Associated signs and symptoms: The patient has no apparent associated signs or symptoms. Current symptoms: In the emergency department the patient's symptoms are unchanged from the initial presentation. Historical: - Allergies: 18:36 No Known Allergies; mg2 - Home Meds: 18:52 Centrum Oral daily [Active]; citalopram 10 mg tab 1 tab once daily [Active]; mg2 hydroxyzine HCl 25 mg Oral tab PRN [Active]; Lactulose Oral 30 mL 3 times per day [Active]; Lasix 40 mg Oral tab 1 tab once daily [Active]; mag oxide 400 mg daily [Active]; midodrine 5 mg Oral tab twice a day [Active]; ondansetron HCl 4 mg Oral tab PRN [Active]; pantoprazole 40 mg Oral TbEC 2 tabs once daily [Active]; ursodiol 300 mg Oral cap 1 cap 2 times per day [Active]; vitamin with iron daily [Active]; Xifaxan 550 mg Oral tab 1 tab 2 times per day [Active]; - PMHx: 18:36 Anemia; Cirrhosis; renal insufficiency; Umbilical hernia; mg2 - Immunization history:: Flu vaccine is up to date. - Social history:: Smoking status: Patient/guardian denies using tobacco, Patient/guardian denies using alcohol, street drugs, IV drugs. - Ebola Screening: : No symptoms or risks identified at this time. - Family history:: not pertinent. ROS: 19:48 Constitutional: Negative for fever, chills, and weight loss, Eyes: Negative for injury, marquise pain, redness, and discharge, ENT: Negative for injury, pain, and discharge, Neck: Negative for injury, pain, and swelling, Cardiovascular: Negative for chest pain, palpitations, and edema, Respiratory: Negative for shortness of breath, cough, wheezing, and pleuritic chest pain, Back: Negative for injury and pain, : Negative for injury, bleeding, discharge, and swelling, MS/Extremity: Negative for injury and deformity, Skin: Negative for injury, rash, and discoloration, Psych: Negative for depression, anxiety, suicide ideation, homicidal ideation, and hallucinations, Allergy/Immunology: Negative for hives, rash, and allergies, Endocrine: Negative for neck swelling, polydipsia, polyuria, polyphagia, and marked weight changes, Hematologic/Lymphatic: Negative for swollen nodes, abnormal bleeding, and unusual bruising. 19:48 Abdomen/GI: Positive for abdominal pain, abdominal distension, of the right upper quadrant, left upper quadrant, right lower quadrant and left lower quadrant, ventral hernias, reducible . Exam: 19:48 Constitutional: This is a well developed, well nourished patient who is awake, alert, marquise and in no acute distress. Head/Face: Normocephalic, atraumatic. Eyes: Pupils equal round and reactive to light, extra-ocular motions intact. Lids and lashes normal. Conjunctiva and sclera are non-icteric and not injected. Cornea within normal limits. Periorbital areas with no swelling, redness, or edema. ENT: Nares patent. No nasal discharge, no septal abnormalities noted. Tympanic membranes are normal and external auditory canals are clear. Oropharynx with no redness, swelling, or masses, exudates, or evidence of obstruction, uvula midline. Mucous membranes moist. Neck: Trachea midline, no thyromegaly or masses palpated, and no cervical lymphadenopathy. Supple, full range of motion without nuchal rigidity, or vertebral point tenderness. No Meningismus. Chest/axilla: Normal chest wall appearance and motion. Nontender with no deformity. No lesions are appreciated. Cardiovascular: Regular rate and rhythm with a normal S1 and S2. No gallops, murmurs, or rubs. Normal PMI, no JVD. No pulse deficits. Respiratory: Lungs have equal breath sounds bilaterally, clear to auscultation and percussion. No rales, rhonchi or wheezes noted. No increased work of breathing, no retractions or nasal flaring. Back: No spinal tenderness. No costovertebral tenderness. Full range of motion. Male : Normal genitalia with no discharge or lesions. Skin: Warm, dry with normal turgor. Normal color with no rashes, no lesions, and no evidence of cellulitis. MS/ Extremity: Pulses equal, no cyanosis. Neurovascular intact. Full, normal range of motion. Neuro: Awake and alert, GCS 15, oriented to person, place, time, and situation. Cranial nerves II-XII grossly intact. Motor strength 5/5 in all extremities. Sensory grossly intact. Cerebellar exam normal. Normal gait. Psych: Awake, alert, with orientation to person, place and time. Behavior, mood, and affect are within normal limits. 19:48 Abdomen/GI: Inspection: distension, Bowel sounds: normal, Palpation: mild abdominal tenderness, in all quadrants, Liver: no appreciated palpable abnormalities, Hernia: noted in the umbilical area, incarceration, is not appreciated, tenderness, that is mild. Vital Signs: 18:33 BP 123 / 95; Pulse 79; Resp 18; Pulse Ox 100% on R/A; Weight 68.04 kg; Height 6 ft. 0 mg2 in. (182.88 cm); Pain 10/10; 18:38 Temp 98(O); tl3 19:15 BP 112 / 80; Pulse 80; Resp 18; Pulse Ox 100% ; tl3 20:00 BP 129 / 98; Pulse 74; Resp 18; Pulse Ox 100% on R/A; tl3 22:00 BP 131 / 99; Pulse 72; Resp 18; Pulse Ox 98% on R/A; tl3 23:58 BP 119 / 92; Pulse 75; Resp 16; Pulse Ox 100% on R/A; tl3 18:33 Body Mass Index 20.34 (68.04 kg, 182.88 cm) mg2 MDM: 19:07 Patient medically screened. [facility] 19:51 Data reviewed: vital signs, nurses notes, lab test result(s), EKG, radiologic studies, [facility] CT scan, plain films. 12/03 19:00 Order name: Basic Metabolic Panel; Complete Time: 20:52 mg2 12/03 19:00 Order name: CBC with Diff mg2 12/03 19:00 Order name: Creatinine for Radiology; Complete Time: 20:52 mg2 12/03 19:00 Order name: Hepatic Function; Complete Time: 20:52 mg2 12/03 19:00 Order name: Lipase; Complete Time: 20:52 mg2 12/03 19:43 Order name: Magnesium [facility] 12/03 19:43 Order name: NT PRO-BNP [facility] 12/03 19:43 Order name: PT-INR [facility] 12/03 19:43 Order name: Troponin (emerg Dept Use Only) [facility] 12/03 19:46 Order name: AMMONIA [facility] 12/03 19:47 Order name: Blood Culture Adult (2) [facility] 12/03 19:47 Order name: Lactate [facility] 12/03 19:54 Order name: CBC Smear Scan [facility] 12/03 22:02 Order name: Ammonia [facility] 12/03 19:00 Order name: IV Saline Lock; Complete Time: 19:00 [facility] [place] 12/03 19:00 Order name: Labs collected and sent; Complete Time: 19:00 [facility] [place] 12/03 19:43 Order name: XRAY Chest (1 view); Complete Time: 20:52 [facility] 12/03 19:43 Order name: EKG; Complete Time: 19:44 [facility] 12/03 19:43 Order name: Cardiac monitoring; Complete Time: 19:54 [facility] 12/03 19:43 Order name: EKG - Nurse/Tech; Complete Time: 20:20 [facility] 12/03 19:43 Order name: O2 Per Protocol; Complete Time: 19:54 [facility] 12/03 20:39 Order name: Abdomen [facility] 12/03 22:02 Order name: Ammonia [facility] 12/03 22:08 Order name: Urine Dipstick--Ancillary (enter results) [facility] 12/03 22:16 Order name: Urine Dipstick-Ancillary [facility] 12/03 19:43 Order name: O2 Sat Monitoring; Complete Time: 19:54 [facility] Administered Medications: 20:18 Drug: Rocephin - (cefTRIAXone) 1 grams Route: IVPB; Infused Over: 30 mins; Site: right tl3 antecubital; Delivery: Primary tubing; 20:19 Follow up: IV Status: Completed infusion; IV Intake: 20ml tl3 20:19 Drug: NS 0.9% 1000 ml Route: IV; Rate: 75 ml/hr; Site: right antecubital; Delivery: tl3 Primary tubing; 23:59 Follow up: IV Status: Infusion continued upon admission tl3 20:19 Drug: ProTONIX 40 mg Route: IVP; Infused Over: 2 mins; Site: right antecubital; tl3 23:58 Follow up: Response: No adverse reaction tl3 12/04 00:31 Drug: Lactulose 30 grams Volume: 45 ml; Route: PO; tl3 Disposition: 12/03/18 20:56 Hospitalization ordered by Bobbi Moe for Inpatient Admission. Preliminary diagnosis are Unspecified cirrhosis of liver, Ascites, Encephalopathy, unspecified, Unspecified kidney failure, Abdominal tenderness, Ileus, unspecified. - Bed requested for Telemetry/MedSurg (Inpatient). - Status is Inpatient Admission. tl3 - Condition is Fair. - Problem is new. - Symptoms are unchanged. UTI on Admission? No Signatures: Dispatcher [employer] [facility]WI Noemi Spring RN RN Stanislaw Schmitz MD MD cha Lowrey, Tammy, RN RN tl3 Miguel Farrell RN RN mg2 Corrections: (The following items were deleted from the chart) 12/03 20:39 19:46 Abdomen Pelvis W Con+CT.RAD.BRZ ordered. [facility] 22:14 20:56 Hospitalization Ordered by Bobbi Moe MD for Inpatient Admission. Preliminary [facility] diagnosis is Unspecified cirrhosis of liver; Ascites; Encephalopathy, unspecified; Unspecified kidney failure; Abdominal tenderness. Bed requested for Telemetry/MedSurg (Inpatient). Status is Inpatient Admission. Condition is Fair. Problem is new. Symptoms are unchanged. UTI on Admission? No. marquise 12/04 00:06 12/03 22:14 12/03/2018 20:56 Hospitalization Ordered by Bobbi Meo MD for Inpatient kl Admission. Preliminary diagnosis is Unspecified cirrhosis of liver; Ascites; Encephalopathy, unspecified; Unspecified kidney failure; Abdominal tenderness; Ileus, unspecified. Bed requested for Telemetry/MedSurg (Inpatient). Status is Inpatient Admission. Condition is Fair. Problem is new. Symptoms are unchanged. UTI on Admission? No. marquise 12/04 00:40 00:06 12/03/2018 20:56 Hospitalization Ordered by Bobbi Moe MD for Inpatient tl3 Admission. Preliminary diagnosis is Unspecified cirrhosis of liver; Ascites; Encephalopathy, unspecified; Unspecified kidney failure; Abdominal tenderness; Ileus, unspecified. Bed requested for Telemetry/MedSurg (Inpatient). Status is Inpatient Admission. Condition is Fair. Problem is new. Symptoms are unchanged. UTI on Admission? No. kl
[2018-12-03 21:18] LABS: Magnesium 2.6 mg/dL (1.8-2.4); NT PRO-BNP 1691 pg/mL (<125); Troponin (Emerg Dept Use Only) < 0.02 ng/mL (0.0-0.045)
[2018-12-03 22:09] LABS: Anisocytosis 1+; Blood Morphology Comment NOTED (NOT SEEN); Platelet Estimate DECR; Urine White Blood Cell Casts OK
--- NOTE | 2018-12-03 22:09 | P.HP ---
Certification for Inpatient Patient admitted to: Inpatient With expected LOS: >2 Midnights Practitioner: I am a practitioner with admitting privileges, knowledge of patient current condition, hospital course, and medical plan of care. Services: Services provided to patient in accordance with Admission requirements found in Title 42 Section 412.3 of the Code of Federal Regulations Patient History Date of Service: 12/03/18 Reason for admission: hepatic encephalopathy History of Present Illness: Mr Davis is a 53 years old male with history of alcoholic liver cirrhosis, on transplant list, CKD, ascites requiring recurrent paracentesis, last one done 1 week ago. According to his , since the last paracentesis, the patient has been progressively more weak, lethargic and sleepy. Today, the patient was more confused. No history of fever or chills. Last bowel movement was this morning, small amount. Lab work remarkable for normal WBC count, elevated creatinine ( possible baseline) ammonia level 143. At my encounter the patient was oriented in person only. Allergies No Known Drug Allergies Allergy (Verified 11/06/18 10:46) Unknown Home medications list reviewed: Yes Home Medications: Citalopram [Celexa*] 1 tab PO DAILY 10/28/18 Lactulose 30 mg PO TID 10/28/18 Midodrine HCl [Proamatine*] 1 tab PO BID 10/28/18 Multivitamin/Iron/Folic Acid [Centrum Adults Tablet] 1 tab PO DAILY 10/28/18 Rifaximin [Xifaxan] 1 tab PO BID 10/28/18 Ursodiol 1 tab PO BID 10/28/18 - Past Medical/Surgical History Diabetic: No -: Chronic kidney disease, stage II -: Chronic alcoholic liver cirrhosis -: Ascites with multiple paracentesis in the past -: Chronic hyponatremia -: Anemia of chronic disease -: GERD -: left wrist sx to remove cyst -: hernia repair -: sx on left lower leg Psychosocial/ Personal History: Patient is - Family History Mother -: Hypertension, GI disease, Liver disease Notes: mother because of cirrhosis Father -: Diabetes - Social History Smoking Status: Never smoker Alcohol use: No CD- Drugs: No Caffeine use: No Place of Residence: Home Review of Systems 10-point ROS is otherwise unremarkable Physical Examination - Physical Exam General: Alert, In no apparent distress HEENT: Atraumatic, PERRLA, Mucous membr. moist/pink, EOMI, Sclerae nonicteric Neck: Supple, 2+ carotid pulse no bruit, No LAD, Without JVD or thyroid abnormality Respiratory: Clear to auscultation bilaterally, Normal air movement Cardiovascular: Normal S1 S2, No gallops Gastrointestinal: Normal bowel sounds, Distended, Ascites, Tenderness (diffuse tenderness) Musculoskeletal: No tenderness Integumentary: No rashes Neurological: Normal speech, Normal strength at 5/5 x4 extr, Normal tone, Normal affect Lymphatics: No axilla or inguinal lymphadenopathy - Studies Laboratory Data (last 24 hrs) 12/03/18 18:45: PT 19.6 H, INR 1.64 12/03/18 18:45: Magnesium 2.6 H 12/03/18 18:45: Creatinine 1.60 H 12/03/18 18:45: WBC 4.8, Hgb 10.8 L, Hct 32.4 L, Plt Count 52 L 12/03/18 18:45: Sodium 136, Potassium 4.8, BUN 54 H, Creatinine 1.67 H, Glucose 241 H, Total Bilirubin 2.9 H, AST 25, ALT 20, Alkaline Phosphatase 143 H, Lipase 418 H Assessment and Plan - Problems (Diagnosis) (1) Generalized weakness Onset Date: 09/24/17 Current Visit: No Status: Acute (2) Chronic renal disease Onset Date: 12/11/17 Current Visit: No Status: Chronic Qualifiers: Chronic kidney disease stage: stage 3 (moderate) Qualified Code(s): N18.3 - Chronic kidney disease, stage 3 (moderate) (3) Cirrhosis of liver Onset Date: 03/23/15 Current Visit: No Status: Chronic (4) Hepatic encephalopathy Onset Date: 12/11/17 Current Visit: No Status: Resolved - Plan Will admit Mr Davis due to hepatic encephalopathy. Will resume Rifaximin, and start higher dose of lactulose than home dose. There are no obvious signs of infection. Check ammonia level in AM. - Advance Directives Does patient have a Living Will: No Does patient have a Durable POA for Healthcare: No - Code Status/Comfort Care Code Status Assessed: Yes Code Status: Full Code
[2018-12-03 22:15] LABS: Urine Blood NEGATIVE (NEG); Urine Glucose NEGATIVE (NEG); Urine Protein NEGATIVE (NEG)
[2018-12-04] MEDS ORDERED: LACTULOSE 20 GM/30 ML UCUP ONE (00:31)
[2018-12-04] MEDS ORDERED: ONDANSETRON 4 MG/2 ML VIAL IV PRN (01:00)
[2018-12-04 01:19] VITALS: BMI 16.1
[2018-12-04 06:06] LABS: Absolute Lymphocytes (CBC) 0.5 K/uL (0.7-4.9); Absolute Monocytes 0.4 K/uL (0.1-1.3); Basophils % 0.2 % (0-1.3); Eosinophils % 2.4 % (0-4.4); Hematocrit 29.7 % (39.6-49.0); Lymphocytes % 11.7 % (15.3-44.8); Monocytes % 9.4 % (3.3-12.3); RBC Red Blood Cell Count 3.05 M/uL (4.33-5.43)
--- NOTE | 2018-12-04 06:22 | EKG ---
Test Date: 2018-12-03 Test Time: 20:00:32 Television Analyzer: TL MEASUREMENT RESULTS: Intervals: Rate: 75 MT: 162 QRSD: 86 QT: 424 QTc: 473 [place]: P: -4 MT: 162 QRS: -27 T: 10 INTERPRETIVE STATEMENTS: Normal sinus rhythm Normal ECG Compared to ECG 11/10/2018 18:39:15 Prolonged QT interval no longer present Electronically Signed On 12-04-18 06:16:42 [employer] SERVER by Ghanshyam Young
--- NOTE | 2018-12-04 08:19 | EKG ---
Test Date: 2018-12-03 Test Time: 20:01:38 Student Specialist: TL MEASUREMENT RESULTS: Intervals: Rate: 75 PA: 140 QRSD: 92 QT: 436 QTc: 486 [place]: P: 36 PA: 140 QRS: -17 T: 33 INTERPRETIVE STATEMENTS: Normal sinus rhythm Prolonged QT Abnormal ECG Compared to ECG 12/03/2018 20:00:32 Prolonged QT interval now present Electronically Signed On 12-04-18 08:17:53 AED TRAINER by Ghanshyam Young
[2018-12-04] MEDS: Rifaximin 550 MG Tab PO SCH ×2 (09:00→21:00)
[2018-12-04] MEDS ORDERED: PANTOPRAZOLE 40MG TABLET PO SCH (09:00)
[2018-12-04] MEDS: HYDROCORTISONE 10 MG TAB PO SCH ×2 (10:20→22:40)
[2018-12-04] MEDS: PANTOPRAZOLE 40MG TABLET PO SCH (10:22)
[2018-12-04] MEDS: FUROSEMIDE 40 MG TABLET PO SCH (10:22)
[2018-12-04] MEDS: MULTIVIT W/ MINERAL TAB PO SCH (10:23)
[2018-12-04] MEDS: CITALOPRAM 10 MG TABLET PO SCH (10:23)
[2018-12-04] MEDS: LACTULOSE 20 GM/30 ML UCUP PO SCH ×4 (10:24→22:41)
[2018-12-04] MEDS: MIDODRINE HCL 5 MG TABLET PO SCH ×2 (10:27→22:41)
[2018-12-04] MEDS: URSODIOL 300 MG CAP PO SCH ×2 (13:05→22:41)
--- NOTE | 2018-12-04 13:07 | P.PN ---
Subjective Date of Service: 12/04/18 Primary Care Provider: Dr. Carlos Payne; GI-Dr. Motley; Hepatology-Dr. Malave Chief Complaint: hepatic encephalopathy Subjective: Improving Physical Examination - Vital Signs Temperature: 97.9 F Blood Pressure: 113/79 Pulse: 71 Respirations: 16 Pulse Ox (%): 100 - Physical Exam General: Alert, In no apparent distress, Cooperative HEENT: Atraumatic Neck: Supple Respiratory: Clear to auscultation bilaterally, Normal air movement Cardiovascular: Normal pulses, Regular rate/rhythm Gastrointestinal: Normal bowel sounds, Soft and benign, Non-distended, Ascites ( Ascites noted but not significant) Neurological: Normal speech, Normal strength at 5/5 x4 extr, Normal tone - Studies Laboratory Data (last 24 hrs) 12/03/18 18:45: PT 19.6 H, INR 1.64 12/03/18 18:45: Magnesium 2.6 H 12/03/18 18:45: Creatinine 1.60 H 12/03/18 18:45: WBC 4.8, Hgb 10.8 L, Hct 32.4 L, Plt Count 52 L 12/03/18 18:45: Sodium 136, Potassium 4.8, BUN 54 H, Creatinine 1.67 H, Glucose 241 H, Total Bilirubin 2.9 H, AST 25, ALT 20, Alkaline Phosphatase 143 H, Lipase 418 H Medications List Reviewed: Yes Assessment & Plan Discharge Plan: Home Plan to discharge in: 24 Hours Physician Review Additional Text: Impression: Hepatic encephalopathy with history of alcoholic cirrhosis Anemia of chronic disease Thrombocytopenia secondary to alcoholic cirrhosis Hypotension on midodrine Chronic renal disease, stage II Ascites Adrenal insufficiency Depression GERD Plan: Hepatic encephalopathy with history of alcoholic cirrhosis: Ammonia level improved. He is more alert. Will increase lactulose. Continue with Xifaxan. Compliance with medication addressed in detail. Will ambulate with physical therapy. Will continue monitor. Continue with diuretic therapy as well. No need for paracentesis. Anticipate discharge in the next 24 hr. Anemia of chronic disease: Will monitor closely. Thrombocytopenia secondary to alcoholic cirrhosis: Will monitor closely. Patient may require platelet transfusion. Hypotension on midodrine: Continue with medication Chronic renal disease, stage II: Will monitor closely. Ascites: Patient with history of multiple paracentesis. Last paracentesis 1 week ago. No need for paracentesis at this time. Adrenal insufficiency: Continue with home medication. Depression: Continue with medication GERD: Continue medication. Time Spent Managing Pts Care (In Minutes): 55
--- NOTE | 2018-12-04 14:41 | RAD REPORT ---
EXAM DESCRIPTION: CT - Abdomen Pelvis Wo Contrast - 12/03/2018 10:04 pm CLINICAL HISTORY: 53 years Male, ABD PAIN COMPARISON: None. TECHNIQUE: 5 mm axial images of the abdomen and pelvis were obtained with oral and without intraveno us contrast. 3 mm reformatted coronal and sagittal images were obtained. This exam was performed according to our departmental dose-optimization program, which includes autom ated exposure control, adjustment of the mA and/or kV according to patient size and/or less of iterat tanvi reconstruction technique. FINDINGS: Lung bases: There are not active infiltrates There is evidence of coronary arterial diseas e. There is severe bilateral gynecomastia. Liver: There is evidence of hepatic cirrhosis. Spleen: There is mild splenomegaly. Pancreas: Normal. Gallbladder: There is evidence of cholelithiasis with numerous small stones demonstrated. Right adrenal gland: Normal. Left adrenal gland: Normal. Right kidney: Normal. Left kidney: Normal. Retroperitoneal structures: There is moderately severe atherosclerotic disease of the abdominal aorta and iliac arteries. Bowel survey: There is increased stool throughout the colon. There are multiple mildly distended smal l bowel loops with short air field levels. There is no evidence of obstruction. Urinary bladder: Normal. Prostate gland: Normal size. Peritoneal cavity: There is a large amount of peritoneal ascites. Mesentery structures: Normal. Abdominal wall: There is a large midline periumbilical ventral hernia containing fat and ascitic flui d. The fascial defect measures 3.8 x 6.8 cm in maximal transverse and longitudinal dimensions respect ively. Bony structures: There is evidence of osteoporosis with numerous chronic appearing compression deform ities throughout the lower thoracic and lumbar spine. Post vertebroplasty changes are noted at L2, T1 2, and T11 IMPRESSION: 1. Hepatic cirrhosis with mild splenomegaly and large amount of peritoneal ascites. 2. Mild generalized ileus with distended loops of small bowel and increased stool throughout the colo n. 3. Large ventral periumbilical hernia. 4. Atherosclerotic disease. Electronically signed by: Edd Briggs MD 12/03/2018 9:58 PM [employer] Due to temporary technical issues with the PACS/Fluency reporting system, reports are being signed by the in house radiologist as a courtesy to ensure prompt reporting. The interpreting radiologist is f ully responsible for the content of the report.
[2018-12-04 23:06] VITALS: O2SAT 97
[2018-12-05 05:59] LABS: Absolute Lymphocytes (CBC) 0.3 K/uL (0.7-4.9); Absolute Monocytes 0.3 K/uL (0.1-1.3); Absolute Neutrophil 3.8 K/uL (1.8-8.0); Basophils % 0.4 % (0-1.3); Eosinophils % 0.2 % (0-4.4); Hematocrit 28.7 % (39.6-49.0); Lymphocytes % 7.3 % (15.3-44.8); MPV 7.3 fL (7.6-11.3); Monocytes % 6.3 % (3.3-12.3); RBC Red Blood Cell Count 2.96 M/uL (4.33-5.43)
[2018-12-05 06:13] LABS: Albumin 3.3 g/dL (3.4-5.0); Bilirubin Total 2.6 mg/dL (0.2-1.0); Potassium 5.2 mmol/L (3.5-5.1); Protein, Total 5.7 g/dL (6.4-8.2)
[2018-12-05] MEDS: Rifaximin 550 MG Tab PO SCH (09:00)
--- NOTE | 2018-12-05 09:58 | P.DS ---
Admission Date: 12/03/18 Discharge Date: 12/05/18 Primary Care Provider: Dr. Carlos Payne; GI-Dr. Motley; Hepatology-Dr. Malave Disposition: ROUTINE DISCHARGE Discharge Condition: GOOD Reason for Admission: hepatic encephalopathy Consultations: none Procedures: CT AB/Pelvis: COMPARISON: None. TECHNIQUE: 5 mm axial images of the abdomen and pelvis were obtained with oral and without intravenous contrast. 3 mm reformatted coronal and sagittal images were obtained. This exam was performed according to our departmental dose-optimization program , which includes automated exposure control, adjustment of the mA and/or kV according to patient size and/or less of iterative reconstruction technique. FINDINGS: Lung bases: There are not active infiltrates There is evidence of coronary arterial disease. There is severe bilateral gynecomastia. Liver: There is evidence of hepatic cirrhosis. Spleen: There is mild splenomegaly. Pancreas: Normal. Gallbladder: There is evidence of cholelithiasis with numerous small stones demonstrated. Right adrenal gland: Normal. Left adrenal gland: Normal. Right kidney: Normal. Left kidney: Normal. Retroperitoneal structures: There is moderately severe atherosclerotic disease of the abdominal aorta and iliac arteries. Bowel survey: There is increased stool throughout the colon. There are multiple mildly distended small bowel loops with short air field levels. There is no evidence of obstruction. Urinary bladder: Normal. Prostate gland: Normal size. Peritoneal cavity: There is a large amount of peritoneal ascites. Mesentery structures: Normal. Abdominal wall: There is a large midline periumbilical ventral hernia containing fat and ascitic fluid. The fascial defect measures 3.8 x 6.8 cm in maximal transverse and longitudinal dimensions respectively. Bony structures: There is evidence of osteoporosis with numerous chronic appearing compression deformities throughout the lower thoracic and lumbar spine. Post vertebroplasty changes are noted at L2, T12, and T11 IMPRESSION: 1. Hepatic cirrhosis with mild splenomegaly and large amount of peritoneal ascites. 2. Mild generalized ileus with distended loops of small bowel and increased stool throughout the colon. 3. Large ventral periumbilical hernia. 4. Atherosclerotic disease. CXR: COMPARISON: Chest Single View dated 11/10/2018; Chest Single View dated 10/28/2018 ; Chest Single View dated 10/02/2018; Chest Single View dated 09/22/2018 FINDINGS: Portable technique limits examination quality. The lungs are underinflated which results in vascular crowding. The heart is normal in size. No displaced fractures. IMPRESSION: Underinflated lungs. Follow up KUB: FINDINGS: The bowel gas pattern is unremarkable without evidence of obstruction No abnormal mass noted Medical Problem List: Hepatic encephalopathy with history of alcoholic cirrhosis Anemia of chronic disease Thrombocytopenia secondary to alcoholic cirrhosis Hypotension on midodrine Chronic renal disease, stage II Ascites Adrenal insufficiency Depression GERD Large ventral periumbilical hernia Brief History of Present Illness: 53-year-old male presented emergency room with increased fatigue and confusion. Patient found to have hepatic encephalopathy. Patient was admitted for treatment. No significant abdominal pain noted. CT scan showed possible ileus but primarily increased stool. Hospital Course: Patient admitted for fatigue secondary to hepatic encephalopathy. Patient with history of alcoholic cirrhosis, anemia of chronic disease, thrombocytopenia secondary to alcoholic cirrhosis and ascites. Patient found to have elevated ammonia level. CT scan showed possible ileus with increased stool. Patient denied any significant abdominal pain. No significant nausea or vomiting noted. Clinically patient did not have ileus. Patient given lactulose. Good bowel movements noted. Patient tolerating diet at discharge. Patient appears to be back at his baseline level. Improved ammonia level noted. Lab stable. At discharge he will continue with Xifaxan 550 mg one pill twice daily, lactulose 4 times a day and ursodial 300 mg one pill twice daily. Patient encouraged to have at least 3-4 bowel movements per day. Compliance with medication is to be monitored closely. This is important for his cirrhosis. This will be stressed to the patient and family. Patient needs to follow up with his box spinner. Patient to continue to have outpatient paracentesis. This is to be arranged by his PCP or box spinner. Sedation medication. Patient currently on midodrine 10 mg 1 pill twice daily due to low blood pressure. Patient will continue with medication. Patient with chronic renal disease, stage II. This remained stable. Recommend no further use of nonsteroidal anti-inflammatories. Future medications will need to be renally dosed. Patient may follow up with nephrology as an outpatient to further monitor. Recommend to continue with a 1500 cc per day fluid restriction. Patient with ascites. Patient has had multiple paracentesis in the past. Last paracentesis last week. Patient will follow up with hepatology or PCP to arrange for outpatient paracentesis. Recommend to continue with a 1500 cc per day fluid restriction. Patient with depression. Patient will continue with his medication-Celexa 40 mg daily. Patient with GERD. Patient will continue with his medication-Protonix 40 mg daily. Patient taking steroid medication likely for adrenal insufficiency. Patient to continue with medication and to be monitored by his PCP. Patient will continue with aspiration and fall precaution. Vital Signs/Physical Exam: Temp Pulse Resp BP Pulse Ox 99.1 F 89 220 H 104/72 96 12/05/18 04:00 12/05/18 04:00 12/05/18 04:00 12/05/18 04:00 12/05/18 04:00 General: Alert, In no apparent distress, Oriented x3, Cooperative HEENT: Atraumatic Neck: Supple Respiratory: Clear to auscultation bilaterally, Normal air movement Cardiovascular: Normal pulses, Regular rate/rhythm Gastrointestinal: Normal bowel sounds, Soft and benign, Non-distended, No tenderness, Other (Abdomen soft. No tenderness.), Ascites (Mild ascites noted.) Integumentary: No erythema, No warmth, No cyanosis Neurological: Normal speech, Normal strength at 5/5 x4 extr, Normal tone, Normal affect Laboratory Data at Discharge: WBC 4.4 K/uL (4.3-10.9) 12/05/18 05:38 Hgb 9.9 g/dL (13.6-17.9) L 12/05/18 05:38 Hct 28.7 % (39.6-49.0) L 12/05/18 05:38 Plt Count 46 K/uL (152-406) L* 12/05/18 05:38 PT 19.6 SECONDS (9.2-12.8) H 12/03/18 18:45 INR 1.64 12/03/18 18:45 Sodium 137 mmol/L (136-145) 12/05/18 05:38 Potassium 4.7 mmol/L (3.5-5.1) 12/05/18 08:56 BUN 47 mg/dL (7-18) H 12/05/18 05:38 Creatinine 1.49 mg/dL (0.55-1.3) H 12/05/18 05:38 Glucose 151 mg/dL (74-106) H 12/05/18 05:38 Magnesium 2.6 mg/dL (1.8-2.4) H 12/03/18 18:45 Total Bilirubin 2.6 mg/dL (0.2-1.0) H 12/05/18 05:38 AST 23 U/L (15-37) 12/05/18 05:38 ALT 22 U/L (12-78) 12/05/18 05:38 Alkaline Phosphatase 134 U/L (45-117) H 12/05/18 05:38 Lipase 418 U/L (73-393) H 12/03/18 18:45 Home Medications: Citalopram [Celexa*] 40 mg PO DAILY 10/28/18 Midodrine HCl [Proamatine*] 10 mg PO BID 10/28/18 Rifaximin [Xifaxan] 1 tab PO BID 10/28/18 Ursodiol 1 tab PO BID 10/28/18 Hydrocortisone [Cortef*] 25 mg PO BID 12/04/18 Hydroxyzine HCl [Atarax] 25 mg PO PRN PRN 12/04/18 Multivitamin/Iron/Folic Acid [Centrum Adults Tablet] 1 tab PO DAILY 12/04/18 Ondansetron [Zofran (Odt)*] 4 mg PO PRN PRN 12/04/18 Pantoprazole [Protonix Tab*] 40 mg PO DAILY 12/04/18 Lactulose 30 ml PO QID #1 bottle 12/05/18 New Medications: Lactulose 30 ml PO QID #1 bottle Patient Discharge Instructions: 1. Patient will follow up with his PCP within 1 week to follow up this hospitalization. 2. Patient admitted for fatigue secondary to hepatic encephalopathy. Patient with history of alcoholic cirrhosis, anemia of chronic disease, thrombocytopenia secondary to alcoholic cirrhosis and ascites. Patient found to have elevated ammonia level. CT scan showed possible ileus with increased stool. Patient denied any significant abdominal pain. No significant nausea or vomiting noted. Clinically patient did not have ileus. Patient given lactulose. Good bowel movements noted. Patient tolerating diet at discharge. Patient appears to be back at his baseline level. Improved ammonia level noted. Lab stable. At discharge he will continue with Xifaxan 550 mg one pill twice daily, lactulose 4 times a day and ursodial 300 mg one pill twice daily. Patient encouraged to have at least 3-4 bowel movements per day. Compliance with medication is to be monitored closely. This is important for his cirrhosis. This will be stressed to the patient and family. Patient needs to follow up with his box spinner. Patient to continue to have outpatient paracentesis. This is to be arranged by his PCP or box spinner. Sedation medication. 3. Patient currently on midodrine 10 mg 1 pill twice daily due to low blood pressure. Patient will continue with medication. 4. Patient with chronic renal disease, stage II. This remained stable. Recommend no further use of nonsteroidal anti-inflammatories. Future medications will need to be renally dosed. Patient may follow up with nephrology as an outpatient to further monitor. Recommend to continue with a 1500 cc per day fluid restriction. 5. Patient with ascites. Patient has had multiple paracentesis in the past. Last paracentesis last week. Patient will follow up with hepatology or PCP to arrange for outpatient paracentesis. Recommend to continue with a 1500 cc per day fluid restriction. 6. Patient with depression. Patient will continue with his medication-Celexa 40 mg daily. 7. Patient with GERD. Patient will continue with his medication-Protonix 40 mg daily. 8. Patient taking steroid medication likely for adrenal insufficiency. Patient to continue with medication and to be monitored by his PCP. 9. Patient will continue with aspiration and fall precaution. Diet: Renal Activity: Fall precautions Time spent managing pt's care (in minutes): 55
[2018-12-05] MEDS: LACTULOSE 20 GM/30 ML UCUP PO SCH ×3 (10:08→17:45)
[2018-12-05] MEDS: HYDROCORTISONE 10 MG TAB PO SCH (10:08)
[2018-12-05] MEDS: FUROSEMIDE 40 MG TABLET PO SCH (10:09)
[2018-12-05] MEDS: MULTIVIT W/ MINERAL TAB PO SCH (10:09)
[2018-12-05] MEDS: URSODIOL 300 MG CAP PO SCH (10:09)
[2018-12-05] MEDS: CITALOPRAM 10 MG TABLET PO SCH (10:09)
[2018-12-05] MEDS: MIDODRINE HCL 5 MG TABLET PO SCH (10:10)
[2018-12-05] MEDS: PANTOPRAZOLE 40MG TABLET PO SCH (10:10)
--- NOTE | 2018-12-05 11:57 | RAD REPORT ---
EXAM DESCRIPTION: RAD - Abdomen 1 View (KUB) - 12/05/2018 11:45 am CLINICAL HISTORY: Abdomen pain. FINDINGS: The bowel gas pattern is unremarkable without evidence of obstruction No abnormal mass noted
[2018-12-05 18:44] VITALS: BP 90/67; TEMP 98.9
[2018-12-05] MEDS ORDERED: RIFAXIMIN 550 MG PO SCH (21:00)
== END 2018-12-05 18:42 | disposition home or self-care (01) ==
LOC: ER 18:24 → INTOOBSV 22:03 → ERHOLD 22:03 → 2ND 12-04 00:28
PROVIDERS: ADMIT Internal Medicine; ATTEND Internal Medicine
DX: K72.90 Hepatic failure, unspecified without coma (principal); D64.9 Anemia, unspecified; K70.31 Alcoholic cirrhosis of liver with ascites; D69.6 Thrombocytopenia, unspecified; I95.9 Hypotension, unspecified; N18.2 Chronic kidney disease, stage 2 (mild); F32.9 Major depressive disorder, single episode, unspecified; K21.9 Gastro-esophageal reflux disease without esophagitis; K43.9 Ventral hernia without obstruction or gangrene; E27.40 Unspecified adrenocortical insufficiency
CPT/HCPCS: 36415; 71045; 74018; 74176; 80048; 80053; 80076; 81003; 82140; 83605; 83690; 83735; 83880; 84132; 84484; 85025; 85610; 87040; 93005; 94760; 96361; 96374; 96375; 97163; 99285; C9113; G0378; J0696; J7030

== ENCOUNTER 2018-12-09 00:36 | Emergency (ER) | payer MEDICAID ==
--- OUTSIDE RECORDS SUMMARY | 2018-12-09 00:57 | XMS REPORT ---
:1965 [facility] [place] [address] [place] [id number] Care Team Providers Name Role Phone BRANNON BONILLA Unavailable Unavailable INGRID JUNIOR Unavailable Unavailable BRANDO [...] Value Reference Range Comments CULTURE (BEAKER) (test pngt=6049) No growth GRAM STAIN RESULT (BEAKER) (test bpob=2521) <1+ WBCs GRAM STAIN RESULT (BEAKER) (test gyhw=69841) No organisms seen POCT-GLUCOSE [id number] 11:52:00 Test Item Value Reference Range Comments POC-GLUCOSE METER (BEAKER) 224 mg/dL 70-110 TESTED AT [facility] [address] [facility] (test yhop=8257) [facility] [address] POCT-GLUCOSE [id number] 08:27:00 Test Item Value Reference Range Comments POC-GLUCOSE METER (BEAKER) 159 mg/dL 70-110 TESTED AT [facility] [address] [facility] (test xfvs=8123) [facility] [address] CBC W/PLT COUNT & AUTO [id number] 06:22:00 Test Item Value Reference Range Comments WHITE BLOOD CELL COUNT (BEAKER) (test xnov=438) 5.7 K/ L 3.5-10.5 RED BLOOD CELL COUNT (BEAKER) (test pxgx=325) 2.69 M/ L 4.63-6.08 HEMOGLOBIN (BEAKER) (test jtmc=429) 8.7 GM/DL 13.7-17.5 HEMATOCRIT (BEAKER) (test wgks=538) 25.4 % 40.1-51.0 MEAN CORPUSCULAR VOLUME (BEAKER) (test nnnm=295) 94.4 fL 79.0-92.2 MEAN CORPUSCULAR HEMOGLOBIN (BEAKER) (test 32.3 pg 25.7-32.2 exct=877) MEAN CORPUSCULAR HEMOGLOBIN CONC (BEAKER) (test 34.3 GM/DL 32.3-36.5 mcvi=285) RED CELL DISTRIBUTION WIDTH (BEAKER) (test 16.8 % 11.6-14.4 oesh=856) PLATELET COUNT (BEAKER) (test mmss=159) 43 K/CU MM 150-450 MEAN PLATELET VOLUME (BEAKER) (test nbar=209) 10.6 fL 9.4-12.4 NUCLEATED RED BLOOD CELLS (BEAKER) (test 0 /100 WBC 0-0 xvuz=599) NEUTROPHILS RELATIVE PERCENT (BEAKER) (test 82 % zaow=608) LYMPHOCYTES RELATIVE PERCENT (BEAKER) (test 7 % lbdn=637) MONOCYTES RELATIVE PERCENT (BEAKER) (test 9 % oqvr=849) EOSINOPHILS RELATIVE PERCENT (BEAKER) (test 0 % bpte=958) BASOPHILS RELATIVE PERCENT (BEAKER) (test 0 % ovif=609) NEUTROPHILS ABSOLUTE COUNT (BEAKER) (test 4.65 K/ L 1.78-5.38 lexi=615) LYMPHOCYTES ABSOLUTE COUNT (BEAKER) (test 0.38 K/ L 1.32-3.57 jvxw=135) MONOCYTES ABSOLUTE COUNT (BEAKER) (test ytki=087) 0.53 K/ L 0.30-0.82 EOSINOPHILS ABSOLUTE COUNT (BEAKER) (test 0.01 K/ L 0.04-0.54 fazi=502) BASOPHILS ABSOLUTE COUNT (BEAKER) (test cqnl=638) 0.01 K/ L 0.01-0.08 IMMATURE GRANULOCYTES-RELATIVE PERCENT (BEAKER) 1 % 0-1 (test senf=7078) B-TYPE NATRIURETIC FACTOR (BNP)2018-11-20 06:16:00 Test Item Value Reference Range Comments B-TYPE NATRIURETIC PEPTIDE (BEAKER) (test 2158 pg/mL 0-100 dxem=042) [id number] 06:15:00 Test Item Value Reference Range Comments PHOSPHORUS (BEAKER) (test rnzn=531) 2.5 mg/dL 2.3-4.7 [id number] 06:15:00 Test Item Value Reference Range Comments MAGNESIUM (BEAKER) (test uhlr=747) 1.8 mg/dL 1.6-2.6 COMPREHENSIVE METABOLIC [id number] 06:15:00 Test Item Value Reference Range Comments TOTAL PROTEIN (BEAKER) 5.4 gm/dL 6.0-8.3 (test vmci=527) ALBUMIN (BEAKER) (test 4.1 g/dL 3.5-5.0 lojz=9207) ALKALINE PHOSPHATASE 63 U/L 40-150 (BEAKER) (test ygrw=133) BILIRUBIN TOTAL (BEAKER) 2.6 mg/dL 0.2-1.2 (test bftf=719) SODIUM (BEAKER) (test 136 meq/L 136-145 yfpl=231) POTASSIUM (BEAKER) (test 3.9 meq/L 3.5-5.1 oflc=682) CHLORIDE (BEAKER) (test 107 meq/L 98-107 kvgv=784) CO2 (BEAKER) (test 23 meq/L 22-29 jtrr=615) BLOOD UREA NITROGEN 41 mg/dL 7-21 (BEAKER) (test cpzf=255) CREATININE (BEAKER) (test 1.47 mg/dL 0.57-1.25 cdcy=542) GLUCOSE RANDOM (BEAKER) 169 mg/dL 70-105 (test pzyp=911) CALCIUM (BEAKER) (test 10.0 mg/dL 8.4-10.2 iurr=149) AST (SGOT) (BEAKER) (test 13 U/L 5-34 ipch=587) ALT (SGPT) (BEAKER) (test 9 U/L 6-55 jmlt=117) EGFR (BEAKER) (test 50 mL/min/1.73 sq m ESTIMATED GFR IS NOT wfza=9729) ACCURATE CREATININE CLEARANCE IN PREDICTING GLOMERULAR FILTRATION RATE. ESTIMATED GFR IS NOT APPLICABLE FOR DIALYSIS PATIENTS. CALCIUM, [id number] 05:45:00 Test Item Value Reference Range Comments CALCIUM IONIZED (BEAKER) (test adtw=988) 1.28 mmol/L 1.12-1.27 PH, BLOOD (BEAKER) (test vmvd=5314) 7.39 POCT-GLUCOSE [id number] 21:51:00 Test Item Value Reference Range Comments POC-GLUCOSE METER (BEAKER) 143 mg/dL 70-110 TESTED AT [address] (test kjcj=2825) [facility] [address] POCT-GLUCOSE [id number] 17:44:00 Test Item Value Reference Range Comments POC-GLUCOSE METER (BEAKER) 288 mg/dL 70-110 TESTED AT [address] (test mrdp=6365) [facility] [address] POCT-GLUCOSE [id number] 12:55:00 Test Item Value Reference Range Comments POC-GLUCOSE METER (BEAKER) 310 mg/dL 70-110 TESTED AT [address] (test raxd=2646) [facility] [address] POCT-GLUCOSE [id number] 09:01:00 Test Item Value Reference Range Comments POC-GLUCOSE METER (BEAKER) 162 mg/dL 70-110 TESTED AT [address] (test hhaq=1091) [facility] [address] HEMOGLOBIN AND [id number] 08:59:00 Test Item Value Reference Range Comments HEMOGLOBIN (BEAKER) (test ybdj=074) 6.6 GM/DL 13.7-17.5 HEMATOCRIT (BEAKER) (test fszw=883) 19.7 % 40.1-51.0 [id number] 06:54:00 Test Item Value Reference Range Comments PHOSPHORUS (BEAKER) (test pnvd=928) 1.0 mg/dL 2.3-4.7 [id number] 06:42:00 Test Item Value Reference Range Comments MAGNESIUM (BEAKER) (test rtul=461) 2.2 mg/dL 1.6-2.6 COMPREHENSIVE METABOLIC [id number] 06:42:00 Test Item Value Reference Range Comments TOTAL PROTEIN (BEAKER) 5.7 gm/dL 6.0-8.3 (test danx=449) ALBUMIN (BEAKER) (test 4.3 g/dL 3.5-5.0 okch=7003) ALKALINE PHOSPHATASE 56 U/L 40-150 (BEAKER) (test ucdz=409) BILIRUBIN TOTAL (BEAKER) 1.3 mg/dL 0.2-1.2 (test johh=229) SODIUM (BEAKER) (test 134 meq/L 136-145 ksif=791) POTASSIUM (BEAKER) (test 4.2 meq/L 3.5-5.1 urck=460) CHLORIDE (BEAKER) (test 107 meq/L 98-107 noha=334) CO2 (BEAKER) (test 21 meq/L 22-29 ndyh=151) BLOOD UREA NITROGEN 38 mg/dL 7-21 (BEAKER) (test jsel=765) CREATININE (BEAKER) (test 1.41 mg/dL 0.57-1.25 pbkf=379) GLUCOSE RANDOM (BEAKER) 144 mg/dL 70-105 (test flxy=875) CALCIUM (BEAKER) (test 10.6 mg/dL 8.4-10.2 gyvv=291) AST (SGOT) (BEAKER) (test 13 U/L 5-34 iqnq=620) ALT (SGPT) (BEAKER) (test 8 U/L 6-55 yyfn=179) EGFR (BEAKER) (test 53 mL/min/1.73 sq m ESTIMATED GFR IS NOT pbpd=8615) ACCURATE CREATININE CLEARANCE IN PREDICTING GLOMERULAR FILTRATION RATE. ESTIMATED GFR IS NOT APPLICABLE FOR DIALYSIS PATIENTS. CALCIUM, [id number] 05:52:00 Test Item Value Reference Range Comments CALCIUM IONIZED (BEAKER) (test puat=313) 1.25 mmol/L 1.12-1.27 PH, BLOOD (BEAKER) (test wldt=5919) 7.47 CBC W/PLT COUNT & AUTO [id number] 04:49:00 Test Item Value Reference Range Comments WHITE BLOOD CELL COUNT (BEAKER) (test uxyn=036) 4.6 K/ L 3.5-10.5 RED BLOOD CELL COUNT (BEAKER) (test rjks=409) 2.09 M/ L 4.63-6.08 HEMOGLOBIN (BEAKER) (test pctm=745) 6.6 GM/DL 13.7-17.5 HEMATOCRIT (BEAKER) (test zcxn=367) 19.8 % 40.1-51.0 MEAN CORPUSCULAR VOLUME (BEAKER) (test mezq=351) 94.7 fL 79.0-92.2 MEAN CORPUSCULAR HEMOGLOBIN (BEAKER) (test 31.6 pg 25.7-32.2 ddjg=797) MEAN CORPUSCULAR HEMOGLOBIN CONC (BEAKER) (test 33.3 GM/DL 32.3-36.5 oamf=459) RED CELL DISTRIBUTION WIDTH (BEAKER) (test 16.0 % 11.6-14.4 eojq=086) PLATELET COUNT (BEAKER) (test ivxx=550) 49 K/CU MM 150-450 MEAN PLATELET VOLUME (BEAKER) (test trve=897) 9.3 fL 9.4-12.4 NUCLEATED RED BLOOD CELLS (BEAKER) (test 0 /100 WBC 0-0 npxl=452) NEUTROPHILS RELATIVE PERCENT (BEAKER) (test 84 % oggp=591) LYMPHOCYTES RELATIVE PERCENT (BEAKER) (test 6 % ewey=342) MONOCYTES RELATIVE PERCENT (BEAKER) (test 8 % ifmh=941) EOSINOPHILS RELATIVE PERCENT (BEAKER) (test 0 % wens=930) BASOPHILS RELATIVE PERCENT (BEAKER) (test 0 % fzqe=849) NEUTROPHILS ABSOLUTE COUNT (BEAKER) (test 3.90 K/ L 1.78-5.38 lgjv=371) LYMPHOCYTES ABSOLUTE COUNT (BEAKER) (test 0.29 K/ L 1.32-3.57 dsnh=478) MONOCYTES ABSOLUTE COUNT (BEAKER) (test gsoz=564) 0.39 K/ L 0.30-0.82 EOSINOPHILS ABSOLUTE COUNT (BEAKER) (test 0.00 K/ L 0.04-0.54 vium=226) BASOPHILS ABSOLUTE COUNT (BEAKER) (test nlvb=714) 0.00 K/ L 0.01-0.08 IMMATURE GRANULOCYTES-RELATIVE PERCENT (BEAKER) 1 % 0-1 (test udjm=1602) POCT-GLUCOSE [id number] 22:24:00 Test Item Value Reference Range Comments POC-GLUCOSE METER (BEAKER) 272 mg/dL 70-110 TESTED AT [facility] [address] [facility] (test upcv=9750) [facility] [address] BODY FLUID CELL COUNT WITH [id number] 20:26:00 Test Item Value Reference Range Comments APPEARANCE FLUID (BEAKER) (test tirl=484) Clear Clear COLOR FLUID (BEAKER) (test rmwi=860) Yellow Colorless, Straw RBC FLUID (BEAKER) (test vjba=576) 160 /cu mm <=1 ADJUSTED WBC FLUID (BEAKER) (test ltwh=2639) 66 /cu mm <=5 LINING CELLS (BEAKER) (test frki=4212) 0 /cu mm <=1 NEUTROPHILS FLUID (BEAKER) (test dqgt=8858) 2 % LYMPHS FLUID (BEAKER) (test oaam=398) 17 % MONO/MACROPHAGE FLUID (BEAKER) (test qztd=765) 81 % EOSINOPHILS FLUID (BEAKER) (test feis=982) 0 % BASO FLUID (BEAKER) (test ooec=188) 0 % CONTAINER BODY FLUID (BEAKER) (test idxh=9746) EDTA Tube ALBUMIN, BODY [id number] 18:58:00 Test Item Value Reference Range Comments ALBUMIN FLUID (BEAKER) (test vekn=354) 1.6 gm/dL Reference Range: No Normals Assay performance has not been validated for this type of specimen.POCT-GLUCOSE [id number] 17:51:00 Test Item Value Reference Range Comments POC-GLUCOSE METER (BEAKER) 275 mg/dL 70-110 TESTED AT [facility] [address] [place] [address] (test gtbw=4221) [facility] [address] U/S, [id number] 16:16:00Reason for exam:->ascitesFINAL REPORT History: Ascites. Procedure: Following informed written consent, the patient's left lower quadrant was prepped and draped in the usual sterile manner. 2% lidocaine was given locally for anesthesia. No conscious sedation was administered. Using ultrasound guidance and a 5 [place] angiocatheter, access was gained to the left [...] MDReport Verified Date/Time: 11/18/2018 16:16:57 Reading Location: [address] Ultrasound Reading Room POCT-GLUCOSE [id number] 10:24:00 Test Item Value Reference Range Comments POC-GLUCOSE METER (BEAKER) 187 mg/dL 70-110 TESTED AT [facility] [address] (test dkfu=7281) [facility] [address] CALCIUM, [id number] 07:11:00 Test Item Value Reference Range Comments CALCIUM IONIZED (BEAKER) (test rfdy=851) 1.42 mmol/L 1.12-1.27 PH, BLOOD (BEAKER) (test nmdz=0108) 7.38 VITAMIN D, [id number] 07:00:00 Test Item Value Reference Range Comments VITAMIN D 25-OH (BEAKER) (test yjyf=2741) 6.3 ng/mL 6.6-49.9 Effective 08/06/2017: Reference Range ChangeNew: 6.6-49.9 ng/mL Previous: 13.0 -47.8 ng/mLRecommended Vitamin D Target Range: 30.0-40.0 ng/[id number] 06:43:00 Test Item Value Reference Range Comments PHOSPHORUS (BEAKER) (test ctyg=707) 1.6 mg/dL 2.3-4.7 [id number] 06:43:00 Test Item Value Reference Range Comments MAGNESIUM (BEAKER) (test eigv=285) 2.1 mg/dL 1.6-2.6 PTH, [id number] 06:43:00 Test Item Value Reference Range Comments PARATHYROID HORMONE INTACT (BEAKER) (test 18.8 pg/mL 8.5-72.5 ebgj=517) COMPREHENSIVE METABOLIC [id number] 06:43:00 Test Item Value Reference Range Comments TOTAL PROTEIN (BEAKER) 5.9 gm/dL 6.0-8.3 (test wmel=252) ALBUMIN (BEAKER) (test 4.4 g/dL 3.5-5.0 nmfs=0116) ALKALINE PHOSPHATASE 66 U/L 40-150 (BEAKER) (test tzwy=750) BILIRUBIN TOTAL (BEAKER) 1.5 mg/dL 0.2-1.2 (test cgez=873) SODIUM (BEAKER) (test 134 meq/L 136-145 oanz=215) POTASSIUM (BEAKER) (test 3.2 meq/L 3.5-5.1 ypqx=026) CHLORIDE (BEAKER) (test 104 meq/L 98-107 myme=534) CO2 (BEAKER) (test 21 meq/L 22-29 wroo=690) BLOOD UREA NITROGEN 33 mg/dL 7-21 (BEAKER) (test cnxe=830) CREATININE (BEAKER) (test 1.60 mg/dL 0.57-1.25 qdob=703) GLUCOSE RANDOM (BEAKER) 149 mg/dL 70-105 (test nfdx=722) CALCIUM (BEAKER) (test 11.1 mg/dL 8.4-10.2 vloo=709) AST (SGOT) (BEAKER) (test 12 U/L 5-34 qnyw=712) ALT (SGPT) (BEAKER) (test 9 U/L 6-55 feoy=582) EGFR (BEAKER) (test 45 mL/min/1.73 sq m ESTIMATED GFR IS NOT dgbx=3495) ACCURATE CREATININE CLEARANCE IN PREDICTING GLOMERULAR FILTRATION RATE. ESTIMATED GFR IS NOT APPLICABLE FOR DIALYSIS PATIENTS. CBC W/PLT COUNT & AUTO [id number] 06:28:00 Test Item Value Reference Range Comments WHITE BLOOD CELL COUNT (BEAKER) (test symj=530) 4.6 K/ L 3.5-10.5 RED BLOOD CELL COUNT (BEAKER) (test veyx=651) 2.27 M/ L 4.63-6.08 HEMOGLOBIN (BEAKER) (test kwbo=352) 7.3 GM/DL 13.7-17.5 HEMATOCRIT (BEAKER) (test nrod=826) 21.4 % 40.1-51.0 MEAN CORPUSCULAR VOLUME (BEAKER) (test ygsm=497) 94.3 fL 79.0-92.2 MEAN CORPUSCULAR HEMOGLOBIN (BEAKER) (test 32.2 pg 25.7-32.2 qket=075) MEAN CORPUSCULAR HEMOGLOBIN CONC (BEAKER) (test 34.1 GM/DL 32.3-36.5 qspj=746) RED CELL DISTRIBUTION WIDTH (BEAKER) (test 15.8 % 11.6-14.4 lbbh=280) PLATELET COUNT (BEAKER) (test yjuu=600) 51 K/CU MM 150-450 MEAN PLATELET VOLUME (BEAKER) (test lcdn=689) 9.8 fL 9.4-12.4 NUCLEATED RED BLOOD CELLS (BEAKER) (test 0 /100 WBC 0-0 rvzo=075) NEUTROPHILS RELATIVE PERCENT (BEAKER) (test 76 % qohu=598) LYMPHOCYTES RELATIVE PERCENT (BEAKER) (test 7 % wiss=692) MONOCYTES RELATIVE PERCENT (BEAKER) (test 15 % beyx=809) EOSINOPHILS RELATIVE PERCENT (BEAKER) (test 1 % nzjs=607) BASOPHILS RELATIVE PERCENT (BEAKER) (test 0 % dvyz=803) NEUTROPHILS ABSOLUTE COUNT (BEAKER) (test 3.50 K/ L 1.78-5.38 nzac=009) LYMPHOCYTES ABSOLUTE COUNT (BEAKER) (test 0.31 K/ L 1.32-3.57 liha=995) MONOCYTES ABSOLUTE COUNT (BEAKER) (test aotf=334) 0.69 K/ L 0.30-0.82 EOSINOPHILS ABSOLUTE COUNT (BEAKER) (test 0.04 K/ L 0.04-0.54 izaa=624) BASOPHILS ABSOLUTE COUNT (BEAKER) (test ongq=354) 0.00 K/ L 0.01-0.08 IMMATURE GRANULOCYTES-RELATIVE PERCENT (BEAKER) 1 % 0-1 (test hxvz=5603) POCT-GLUCOSE [id number] 23:08:00 Test Item Value Reference Range Comments POC-GLUCOSE METER (BEAKER) 259 mg/dL 70-110 TESTED AT [address] (test hvke=6988) [place] [address] POCT-GLUCOSE [id number] 18:53:00 Test Item Value Reference Range Comments POC-GLUCOSE METER (BEAKER) 211 mg/dL 70-110 TESTED AT [address] (test oyhe=5524) [place] [id number] POCT-GLUCOSE [id number] 08:37:00 Test Item Value Reference Range Comments POC-GLUCOSE METER (BEAKER) 208 mg/dL 70-110 TESTED AT [address] (test eshx=1224) [place] [address] [id number] 07:38:00 Test Item Value Reference Range Comments PHOSPHORUS (BEAKER) (test gkzz=313) 2.3 mg/dL 2.3-4.7 [id number] 07:38:00 Test Item Value Reference Range Comments MAGNESIUM (BEAKER) (test ekpc=196) 2.2 mg/dL 1.6-2.6 BASIC METABOLIC [id number] 07:38:00 Test Item Value Reference Range Comments SODIUM (BEAKER) (test 132 meq/L 136-145 lkgd=710) POTASSIUM (BEAKER) (test 3.9 meq/L 3.5-5.1 egsw=925) CHLORIDE (BEAKER) (test 103 meq/L 98-107 llsu=051) CO2 (BEAKER) (test 18 meq/L 22-29 rsfc=630) BLOOD UREA NITROGEN 32 mg/dL 7-21 (BEAKER) (test ucvn=795) CREATININE (BEAKER) (test 1.59 mg/dL 0.57-1.25 vtrw=649) GLUCOSE RANDOM (BEAKER) 152 mg/dL 70-105 (test goem=169) CALCIUM (BEAKER) (test 10.9 mg/dL 8.4-10.2 nplm=648) EGFR (BEAKER) (test 46 mL/min/1.73 sq m ESTIMATED GFR IS NOT zbua=7890) ACCURATE CREATININE CLEARANCE IN PREDICTING GLOMERULAR FILTRATION RATE. ESTIMATED GFR IS NOT APPLICABLE FOR DIALYSIS PATIENTS. CALCIUM, [id number] 07:14:00 Test Item Value Reference Range Comments CALCIUM IONIZED (BEAKER) (test tpwi=439) 1.33 mmol/L 1.12-1.27 PH, BLOOD (BEAKER) (test zbcu=8258) 7.34 CBC W/PLT COUNT & AUTO [id number] 07:13:00 Test Item Value Reference Range Comments WHITE BLOOD CELL COUNT (BEAKER) (test vcwt=820) 5.7 K/ L 3.5-10.5 RED BLOOD CELL COUNT (BEAKER) (test rizs=416) 2.38 M/ L 4.63-6.08 HEMOGLOBIN (BEAKER) (test wwqe=112) 7.6 GM/DL 13.7-17.5 HEMATOCRIT (BEAKER) (test ktjp=151) 22.6 % 40.1-51.0 MEAN CORPUSCULAR VOLUME (BEAKER) (test pvjv=367) 95.0 fL 79.0-92.2 MEAN CORPUSCULAR HEMOGLOBIN (BEAKER) (test 31.9 pg 25.7-32.2 taau=996) MEAN CORPUSCULAR HEMOGLOBIN CONC (BEAKER) (test 33.6 GM/DL 32.3-36.5 xcfa=517) RED CELL DISTRIBUTION WIDTH (BEAKER) (test 15.8 % 11.6-14.4 fjef=206) PLATELET COUNT (BEAKER) (test ghpb=102) 60 K/CU MM 150-450 MEAN PLATELET VOLUME (BEAKER) (test okgw=844) 9.6 fL 9.4-12.4 NUCLEATED RED BLOOD CELLS (BEAKER) (test 0 /100 WBC 0-0 oerc=892) NEUTROPHILS RELATIVE PERCENT (BEAKER) (test 79 % cwle=847) LYMPHOCYTES RELATIVE PERCENT (BEAKER) (test 7 % aoli=108) MONOCYTES RELATIVE PERCENT (BEAKER) (test 14 % rtlx=169) EOSINOPHILS RELATIVE PERCENT (BEAKER) (test 0 % kgfy=796) BASOPHILS RELATIVE PERCENT (BEAKER) (test 0 % wgnu=763) NEUTROPHILS ABSOLUTE COUNT (BEAKER) (test 4.49 K/ L 1.78-5.38 vyjj=246) LYMPHOCYTES ABSOLUTE COUNT (BEAKER) (test 0.38 K/ L 1.32-3.57 rese=795) MONOCYTES ABSOLUTE COUNT (BEAKER) (test ujcr=043) 0.77 K/ L 0.30-0.82 EOSINOPHILS ABSOLUTE COUNT (BEAKER) (test 0.00 K/ L 0.04-0.54 dxjv=614) BASOPHILS ABSOLUTE COUNT (BEAKER) (test fpfp=322) 0.00 K/ L 0.01-0.08 IMMATURE GRANULOCYTES-RELATIVE PERCENT (BEAKER) 1 % 0-1 (test wjrl=2028) POCT-GLUCOSE [id number] 21:28:00 Test Item Value Reference Range Comments POC-GLUCOSE METER (BEAKER) 229 mg/dL 70-110 TESTED AT [address] (test gnbf=9994) [facility] [address] POCT-GLUCOSE [id number] 16:58:00 Test Item Value Reference Range Comments POC-GLUCOSE METER (BEAKER) 207 mg/dL 70-110 TESTED AT [address] (test gblg=8259) [facility] [address] POCT-GLUCOSE [id number] 15:38:00 Test Item Value Reference Range Comments POC-GLUCOSE METER (BEAKER) 198 mg/dL 70-110 TESTED AT [address] (test hyip=0104) [place] [id number] BASIC METABOLIC [id number] 14:09:00 Test Item Value Reference Range Comments SODIUM (BEAKER) (test 128 meq/L 136-145 ucxs=864) POTASSIUM (BEAKER) (test 3.7 meq/L 3.5-5.1 kkgk=391) CHLORIDE (BEAKER) (test 102 meq/L 98-107 zprf=497) CO2 (BEAKER) (test 17 meq/L 22-29 vlov=798) BLOOD UREA NITROGEN 32 mg/dL 7-21 (BEAKER) (test avzc=569) CREATININE (BEAKER) (test 1.59 mg/dL 0.57-1.25 gzwv=762) GLUCOSE RANDOM (BEAKER) 200 mg/dL 70-105 (test obsh=059) CALCIUM (BEAKER) (test 10.1 mg/dL 8.4-10.2 rjgy=468) EGFR (BEAKER) (test 46 mL/min/1.73 sq m ESTIMATED GFR IS NOT yeti=6678) ACCURATE CREATININE CLEARANCE IN PREDICTING GLOMERULAR FILTRATION RATE. ESTIMATED GFR IS NOT APPLICABLE FOR DIALYSIS PATIENTS. POCT-GLUCOSE [id number] 08:26:00 Test Item Value Reference Range Comments POC-GLUCOSE METER (BEAKER) 188 mg/dL 70-110 TESTED AT [address] (test jftz=7661) [place] [address] BLOOD [id number] 07:00:00 Test Item Value Reference Range Comments CULTURE (BEAKER) (test ppde=4769) No growth in 5 days BLOOD [id number] 07:00:00 Test Item Value Reference Range Comments CULTURE (BEAKER) (test klcn=4248) No growth in 5 days BLOOD GAS, [id number] 06:30:00 Test Item Value Reference Range Comments PH VENOUS (BEAKER) (test ueke=291) 7.39 7.32-7.42 PCO2 VENOUS (BEAKER) (test pdmt=809) 35 mmHg 41-51 PO2 VENOUS (BEAKER) (test vzjo=734) 97 mmHg 25-40 O2 SATURATION VENOUS (BEAKER) (test tsib=825) 97.4 % 40.0-70.0 HCO3 VENOUS (BEAKER) (test senf=673) 21 mmol/L 21-29 BASE EXCESS VENOUS (BEAKER) (test uupo=610) -3.8 mmol/L -2.0-3.0 PATIENT TEMPERATURE (BEAKER) (test whre=6759) 37.0 C FIO2 (BEAKER) (test ojew=4093) 100.0 % CBC W/PLT COUNT & AUTO [id number] 06:20:00 Test Item Value Reference Range Comments WHITE BLOOD CELL COUNT (BEAKER) (test mqgf=425) 6.2 K/ L 3.5-10.5 RED BLOOD CELL COUNT (BEAKER) (test voei=747) 2.22 M/ L 4.63-6.08 HEMOGLOBIN (BEAKER) (test mnsf=962) 7.0 GM/DL 13.7-17.5 HEMATOCRIT (BEAKER) (test raxv=756) 20.4 % 40.1-51.0 MEAN CORPUSCULAR VOLUME (BEAKER) (test glse=129) 91.9 fL 79.0-92.2 MEAN CORPUSCULAR HEMOGLOBIN (BEAKER) (test 31.5 pg 25.7-32.2 phtu=462) MEAN CORPUSCULAR HEMOGLOBIN CONC (BEAKER) (test 34.3 GM/DL 32.3-36.5 mdwz=520) RED CELL DISTRIBUTION WIDTH (BEAKER) (test 14.9 % 11.6-14.4 xkwu=157) PLATELET COUNT (BEAKER) (test rphh=075) 53 K/CU MM 150-450 MEAN PLATELET VOLUME (BEAKER) (test jfvo=646) 9.5 fL 9.4-12.4 NUCLEATED RED BLOOD CELLS (BEAKER) (test 0 /100 WBC 0-0 qapn=696) NEUTROPHILS RELATIVE PERCENT (BEAKER) (test 84 % wwwp=824) LYMPHOCYTES RELATIVE PERCENT (BEAKER) (test 5 % bczq=461) MONOCYTES RELATIVE PERCENT (BEAKER) (test 11 % bjrm=924) EOSINOPHILS RELATIVE PERCENT (BEAKER) (test 0 % vozn=136) BASOPHILS RELATIVE PERCENT (BEAKER) (test 0 % mehk=940) NEUTROPHILS ABSOLUTE COUNT (BEAKER) (test 5.16 K/ L 1.78-5.38 junq=627) LYMPHOCYTES ABSOLUTE COUNT (BEAKER) (test 0.30 K/ L 1.32-3.57 yuyy=559) MONOCYTES ABSOLUTE COUNT (BEAKER) (test fjao=063) 0.69 K/ L 0.30-0.82 EOSINOPHILS ABSOLUTE COUNT (BEAKER) (test 0.00 K/ L 0.04-0.54 kgjw=273) BASOPHILS ABSOLUTE COUNT (BEAKER) (test huvt=765) 0.00 K/ L 0.01-0.08 IMMATURE GRANULOCYTES-RELATIVE PERCENT (BEAKER) 1 % 0-1 (test blfx=7836) POCT-GLUCOSE [id number] 05:04:00 Test Item Value Reference Range Comments POC-GLUCOSE METER (BEAKER) 298 mg/dL 70-110 TESTED AT [address] (test ssjw=0586) [place] [address] POCT-GLUCOSE [id number] 12:28:00 Test Item Value Reference Range Comments POC-GLUCOSE METER (BEAKER) 261 mg/dL 70-110 TESTED AT [address] (test piut=8816) [place] [address] BODY FLUID CULTURE + GRAM [id number] 10:18:00 Test Item Value Reference Range Comments CULTURE (BEAKER) (test lsnd=3351) No growth GRAM STAIN RESULT (BEAKER) (test 1+ WBCs qraj=9682) GRAM STAIN RESULT (BEAKER) (test No organisms seen sety=81363) CBC W/PLT COUNT & AUTO [id number] 09:22:00 Test Item Value Reference Range Comments WHITE BLOOD CELL COUNT (BEAKER) (test mejf=543) 6.7 K/ L 3.5-10.5 RED BLOOD CELL COUNT (BEAKER) (test kizu=161) 2.18 M/ L 4.63-6.08 HEMOGLOBIN (BEAKER) (test tofv=964) 7.0 GM/DL 13.7-17.5 HEMATOCRIT (BEAKER) (test yvqm=010) 20.4 % 40.1-51.0 MEAN CORPUSCULAR VOLUME (BEAKER) (test wcah=862) 93.6 fL 79.0-92.2 MEAN CORPUSCULAR HEMOGLOBIN (BEAKER) (test 32.1 pg 25.7-32.2 xsuo=892) MEAN CORPUSCULAR HEMOGLOBIN CONC (BEAKER) (test 34.3 GM/DL 32.3-36.5 zqzb=607) RED CELL DISTRIBUTION WIDTH (BEAKER) (test 15.1 % 11.6-14.4 isju=671) PLATELET COUNT (BEAKER) (test uaso=973) 62 K/CU MM 150-450 MEAN PLATELET VOLUME (BEAKER) (test dbnm=050) 9.0 fL 9.4-12.4 NUCLEATED RED BLOOD CELLS (BEAKER) (test 0 /100 WBC 0-0 kqpr=848) NEUTROPHILS RELATIVE PERCENT (BEAKER) (test 84 % gmfb=414) LYMPHOCYTES RELATIVE PERCENT (BEAKER) (test 5 % juzh=545) MONOCYTES RELATIVE PERCENT (BEAKER) (test 10 % dhqj=811) EOSINOPHILS RELATIVE PERCENT (BEAKER) (test 0 % dspu=854) BASOPHILS RELATIVE PERCENT (BEAKER) (test 0 % mygn=447) NEUTROPHILS ABSOLUTE COUNT (BEAKER) (test 5.63 K/ L 1.78-5.38 vzkj=346) LYMPHOCYTES ABSOLUTE COUNT (BEAKER) (test 0.32 K/ L 1.32-3.57 wgnl=173) MONOCYTES ABSOLUTE COUNT (BEAKER) (test jaxm=433) 0.66 K/ L 0.30-0.82 EOSINOPHILS ABSOLUTE COUNT (BEAKER) (test 0.00 K/ L 0.04-0.54 uhio=032) BASOPHILS ABSOLUTE COUNT (BEAKER) (test mgad=827) 0.00 K/ L 0.01-0.08 IMMATURE GRANULOCYTES-RELATIVE PERCENT (BEAKER) 1 % 0-1 (test eogu=7491) POCT-GLUCOSE [id number] 08:59:00 Test Item Value Reference Range Comments POC-GLUCOSE METER (BEAKER) 180 mg/dL 70-110 TESTED AT [address] (test wuoa=7716) [facility] [address] POCT-GLUCOSE [id number] 21:23:00 Test Item Value Reference Range Comments POC-GLUCOSE METER (BEAKER) 224 mg/dL 70-110 TESTED AT [address] (test lkvu=2513) [facility] [address] SODIUM, RANDOM [id number] 19:24:00 Test Item Value Reference Range Comments SODIUM URINE (BEAKER) (test cdot=735) < meq/L Reference Range: No NormalsCREATININE, RANDOM [id number] 19:22:00 Test Item Value Reference Range Comments CREATININE URINE (BEAKER) (test chwm=909) 103.7 mg/dL Reference Range: No NormalsBASIC METABOLIC [id number] 19:18:00 Test Item Value Reference Range Comments SODIUM (BEAKER) (test 127 meq/L 136-145 mgfy=233) POTASSIUM (BEAKER) (test 3.5 meq/L 3.5-5.1 ukal=640) CHLORIDE (BEAKER) (test 102 meq/L 98-107 nrpl=921) CO2 (BEAKER) (test 15 meq/L 22-29 rujv=425) BLOOD UREA NITROGEN 34 mg/dL 7-21 (BEAKER) (test wffw=652) CREATININE (BEAKER) (test 1.61 mg/dL 0.57-1.25 vrox=671) GLUCOSE RANDOM (BEAKER) 194 mg/dL 70-105 (test qvnp=164) CALCIUM (BEAKER) (test 9.3 mg/dL 8.4-10.2 qfay=429) EGFR (BEAKER) (test 45 mL/min/1.73 sq m ESTIMATED GFR IS NOT zrea=3936) ACCURATE CREATININE CLEARANCE IN PREDICTING GLOMERULAR FILTRATION RATE. ESTIMATED GFR IS NOT APPLICABLE FOR DIALYSIS PATIENTS. OSMOLALITY, [id number] 18:58:00 Test Item Value Reference Range Comments OSMOLALITY URINE (BEAKER) (test iwsh=636) 490 mOsm/kg 40-1,400 URINALYSIS W/ REFLEX URINE [id number] 18:48:00 Test Item Value Reference Range Comments COLOR (BEAKER) (test yxma=281) Yellow CLARITY (BEAKER) (test emzp=103) Clear SPECIFIC GRAVITY UA (BEAKER) (test juql=677) 1.016 1.001-1.035 PH UA (BEAKER) (test jvdw=410) 6.0 5.0-8.0 PROTEIN UA (BEAKER) (test jetw=119) Negative Negative GLUCOSE UA (BEAKER) (test znia=309) Negative Negative KETONES UA (BEAKER) (test bibm=873) Negative Negative BILIRUBIN UA (BEAKER) (test vxmz=211) Negative Negative BLOOD UA (BEAKER) (test hvpb=880) Negative Negative NITRITE UA (BEAKER) (test zuht=019) Negative Negative LEUKOCYTE ESTERASE UA (BEAKER) (test yhhx=090) Negative Negative UROBILINOGEN UA (BEAKER) (test tift=006) 0.2 mg/dL 0.2-1.0 RBC UA (BEAKER) (test hgfe=787) < /HPF WBC UA (BEAKER) (test jxqp=598) 1 /HPF SQUAMOUS EPITHELIAL (BEAKER) (test htoe=702) < /HPF HYALINE CASTS (BEAKER) (test uzxm=811) 5 /LPF SOURCE(BEAKER) (test jtdo=1858) POCT-GLUCOSE [id number] 17:31:00 Test Item Value Reference Range Comments POC-GLUCOSE METER (BEAKER) 219 mg/dL 70-110 TESTED AT [address] (test syas=0453) [facility] [address] POCT-GLUCOSE [id number] 12:14:00 Test Item Value Reference Range Comments POC-GLUCOSE METER (BEAKER) 242 mg/dL 70-110 TESTED AT [address] (test kdof=1066) [facility] [address] POCT-GLUCOSE [id number] 09:00:00 Test Item Value Reference Range Comments POC-GLUCOSE METER (BEAKER) 259 mg/dL 70-110 TESTED AT [address] (test mkae=8813) [facility] [address] [id number] 06:29:00 Test Item Value Reference Range Comments PHOSPHORUS (BEAKER) (test lkxs=411) 4.0 mg/dL 2.3-4.7 [id number] 06:29:00 Test Item Value Reference Range Comments MAGNESIUM (BEAKER) (test gxgq=492) 1.6 mg/dL 1.6-2.6 BASIC METABOLIC [id number] 06:29:00 Test Item Value Reference Range Comments SODIUM (BEAKER) (test 125 meq/L 136-145 syhg=994) POTASSIUM (BEAKER) (test 3.9 meq/L 3.5-5.1 ubdz=969) CHLORIDE (BEAKER) (test 102 meq/L 98-107 lcvq=333) CO2 (BEAKER) (test 17 meq/L 22-29 vqfh=728) BLOOD UREA NITROGEN 35 mg/dL 7-21 (BEAKER) (test alrn=455) CREATININE (BEAKER) (test 1.60 mg/dL 0.57-1.25 sjkq=087) GLUCOSE RANDOM (BEAKER) 162 mg/dL 70-105 (test rqfw=349) CALCIUM (BEAKER) (test 8.7 mg/dL 8.4-10.2 lalt=932) EGFR (BEAKER) (test 45 mL/min/1.73 sq m ESTIMATED GFR IS NOT ntpr=9108) ACCURATE CREATININE CLEARANCE IN PREDICTING GLOMERULAR FILTRATION RATE. ESTIMATED GFR IS NOT APPLICABLE FOR DIALYSIS PATIENTS. PH, [id number] 05:47:00 Test Item Value Reference Range Comments PH VENOUS (BEAKER) (test vfnu=835) 7.39 7.32-7.42 CALCIUM, [id number] 05:47:00 Test Item Value Reference Range Comments CALCIUM IONIZED (BEAKER) (test xqtm=357) 1.15 mmol/L 1.12-1.27 PH, BLOOD (BEAKER) (test mksm=6268) 7.39 CBC W/PLT COUNT & AUTO [id number] 05:22:00 Test Item Value Reference Range Comments WHITE BLOOD CELL COUNT (BEAKER) (test clom=352) 4.5 K/ L 3.5-10.5 RED BLOOD CELL COUNT (BEAKER) (test btpa=573) 2.52 M/ L 4.63-6.08 HEMOGLOBIN (BEAKER) (test qmhi=596) 8.0 GM/DL 13.7-17.5 HEMATOCRIT (BEAKER) (test vsly=139) 23.4 % 40.1-51.0 MEAN CORPUSCULAR VOLUME (BEAKER) (test moei=599) 92.9 fL 79.0-92.2 MEAN CORPUSCULAR HEMOGLOBIN (BEAKER) (test 31.7 pg 25.7-32.2 yaiw=430) MEAN CORPUSCULAR HEMOGLOBIN CONC (BEAKER) (test 34.2 GM/DL 32.3-36.5 frwt=299) RED CELL DISTRIBUTION WIDTH (BEAKER) (test 14.7 % 11.6-14.4 bxgi=866) PLATELET COUNT (BEAKER) (test hyox=743) 55 K/CU MM 150-450 MEAN PLATELET VOLUME (BEAKER) (test qnls=339) 9.4 fL 9.4-12.4 NUCLEATED RED BLOOD CELLS (BEAKER) (test 0 /100 WBC 0-0 shgi=215) NEUTROPHILS RELATIVE PERCENT (BEAKER) (test 82 % rmeq=062) LYMPHOCYTES RELATIVE PERCENT (BEAKER) (test 9 % agis=089) MONOCYTES RELATIVE PERCENT (BEAKER) (test 9 % wysu=441) EOSINOPHILS RELATIVE PERCENT (BEAKER) (test 0 % xaqk=859) BASOPHILS RELATIVE PERCENT (BEAKER) (test 0 % nccc=734) NEUTROPHILS ABSOLUTE COUNT (BEAKER) (test 3.68 K/ L 1.78-5.38 vpcd=476) LYMPHOCYTES ABSOLUTE COUNT (BEAKER) (test 0.38 K/ L 1.32-3.57 xemx=614) MONOCYTES ABSOLUTE COUNT (BEAKER) (test hztk=796) 0.39 K/ L 0.30-0.82 EOSINOPHILS ABSOLUTE COUNT (BEAKER) (test 0.00 K/ L 0.04-0.54 mleo=270) BASOPHILS ABSOLUTE COUNT (BEAKER) (test diqa=192) 0.01 K/ L 0.01-0.08 IMMATURE GRANULOCYTES-RELATIVE PERCENT (BEAKER) 1 % 0-1 (test wjfr=5390) POCT-GLUCOSE [id number] 20:56:00 Test Item Value Reference Range Comments POC-GLUCOSE METER (BEAKER) 199 mg/dL 70-110 TESTED AT [address] (test yvap=6381) [place] [address] POCT-GLUCOSE [id number] 17:21:00 Test Item Value Reference Range Comments POC-GLUCOSE METER (BEAKER) 184 mg/dL 70-110 TESTED AT [address] (test dont=4929) [place] [id number] POCT-GLUCOSE [id number] 12:35:00 Test Item Value Reference Range Comments POC-GLUCOSE METER (BEAKER) 259 mg/dL 70-110 TESTED AT [address] (test baue=5813) [place] [address] POCT-GLUCOSE [id number] 09:15:00 Test Item Value Reference Range Comments POC-GLUCOSE METER (BEAKER) 146 mg/dL 70-110 TESTED AT [address] (test kqwf=5697) [place] [id number] CALCIUM, [id number] 07:31:00 Test Item Value Reference Range Comments CALCIUM IONIZED (BEAKER) (test lgnc=937) 1.16 mmol/L 1.12-1.27 PH, BLOOD (BEAKER) (test cxuc=0721) 7.36 CBC W/PLT COUNT & AUTO [id number] 06:59:00 Test Item Value Reference Range Comments WHITE BLOOD CELL COUNT (BEAKER) (test hvfv=970) 5.2 K/ L 3.5-10.5 RED BLOOD CELL COUNT (BEAKER) (test ifzy=311) 2.47 M/ L 4.63-6.08 HEMOGLOBIN (BEAKER) (test rabv=263) 7.8 GM/DL 13.7-17.5 HEMATOCRIT (BEAKER) (test kfei=439) 23.5 % 40.1-51.0 MEAN CORPUSCULAR VOLUME (BEAKER) (test nrqv=051) 95.1 fL 79.0-92.2 MEAN CORPUSCULAR HEMOGLOBIN (BEAKER) (test 31.6 pg 25.7-32.2 tgxj=331) MEAN CORPUSCULAR HEMOGLOBIN CONC (BEAKER) (test 33.2 GM/DL 32.3-36.5 gsph=970) RED CELL DISTRIBUTION WIDTH (BEAKER) (test 14.9 % 11.6-14.4 ravj=730) PLATELET COUNT (BEAKER) (test jjfv=683) 57 K/CU MM 150-450 MEAN PLATELET VOLUME (BEAKER) (test xgev=038) 9.2 fL 9.4-12.4 NUCLEATED RED BLOOD CELLS (BEAKER) (test 0 /100 WBC 0-0 bcmu=820) NEUTROPHILS RELATIVE PERCENT (BEAKER) (test 69 % zblw=990) LYMPHOCYTES RELATIVE PERCENT (BEAKER) (test 10 % zjwh=777) MONOCYTES RELATIVE PERCENT (BEAKER) (test 16 % pmqb=808) EOSINOPHILS RELATIVE PERCENT (BEAKER) (test 4 % hdmm=479) BASOPHILS RELATIVE PERCENT (BEAKER) (test 0 % mrur=099) NEUTROPHILS ABSOLUTE COUNT (BEAKER) (test 3.57 K/ L 1.78-5.38 wcdq=158) LYMPHOCYTES ABSOLUTE COUNT (BEAKER) (test 0.53 K/ L 1.32-3.57 iapp=817) MONOCYTES ABSOLUTE COUNT (BEAKER) (test agwb=662) 0.82 K/ L 0.30-0.82 EOSINOPHILS ABSOLUTE COUNT (BEAKER) (test 0.18 K/ L 0.04-0.54 ueje=216) BASOPHILS ABSOLUTE COUNT (BEAKER) (test pesn=145) 0.02 K/ L 0.01-0.08 IMMATURE GRANULOCYTES-RELATIVE PERCENT (BEAKER) 1 % 0-1 (test tafo=5719) [id number] 06:00:00 Test Item Value Reference Range Comments PHOSPHORUS (BEAKER) (test sdns=746) 3.6 mg/dL 2.3-4.7 [id number] 06:00:00 Test Item Value Reference Range Comments MAGNESIUM (BEAKER) (test xmue=454) 1.8 mg/dL 1.6-2.6 BASIC METABOLIC [id number] 06:00:00 Test Item Value Reference Range Comments SODIUM (BEAKER) (test 128 meq/L 136-145 dxuv=459) POTASSIUM (BEAKER) (test 3.9 meq/L 3.5-5.1 mwgv=106) CHLORIDE (BEAKER) (test 104 meq/L 98-107 gihi=119) CO2 (BEAKER) (test 17 meq/L 22-29 oxvf=955) BLOOD UREA NITROGEN 38 mg/dL 7-21 (BEAKER) (test usrw=648) CREATININE (BEAKER) (test 1.80 mg/dL 0.57-1.25 pgra=374) GLUCOSE RANDOM (BEAKER) 128 mg/dL 70-105 (test tmld=085) CALCIUM (BEAKER) (test 8.9 mg/dL 8.4-10.2 vpim=247) EGFR (BEAKER) (test 40 mL/min/1.73 sq m ESTIMATED GFR IS NOT tjge=1407) ACCURATE CREATININE CLEARANCE IN PREDICTING GLOMERULAR FILTRATION RATE. ESTIMATED GFR IS NOT APPLICABLE FOR DIALYSIS PATIENTS. HEPATIC FUNCTION [id number] 06:00:00 Test Item Value Reference Range Comments TOTAL PROTEIN (BEAKER) (test pvhs=733) 5.2 gm/dL 6.0-8.3 ALBUMIN (BEAKER) (test dprk=5926) 3.0 g/dL 3.5-5.0 BILIRUBIN TOTAL (BEAKER) (test lwpp=667) 1.8 mg/dL 0.2-1.2 BILIRUBIN DIRECT (BEAKER) (test duho=732) 1.1 mg/dL 0.1-0.5 ALKALINE PHOSPHATASE (BEAKER) (test krbn=992) 96 U/L 40-150 AST (SGOT) (BEAKER) (test ehfq=598) 14 U/L 5-34 ALT (SGPT) (BEAKER) (test mvum=686) 8 U/L 6-55 LACTIC ACID, VENOUS, WHOLE [id number] 05:51:00 Test Item Value Reference Range Comments LACTATE BLOOD VENOUS (2) 1.8 mmol/L 0.5-2.2 Specimen slightly hemolyzed (BEAKER) (test spxs=8001) [id number] 05:45:00 Test Item Value Reference Range Comments PROTIME (BEAKER) (test alfm=708) 21.8 seconds 11.7-14.7 INR (BEAKER) (test xqmy=460) 1.9 <=5.9 PARTIAL THROMBOPLASTIN TIME (BEAKER) (test 51.1 seconds 22.5-36.0 mxcz=284) RECOMMENDED COUMADIN/WARFARIN INR THERAPY RANGESSTANDARD DOSE: 2.0 - 3.0 Includes: PROPHYLAXIS forvenous thrombosis, systemic embolization; TREATMENT for venous thrombosis and/or pulmonary embolus.HIGH RISK: Target INR is 2.5-3.5 for patients with mechanical heart valves.CT, [id number] 22:17:00FINAL REPORT INDICATION:Abdominal pain. COMPARISON: Ultrasound abdomen [...] defect through which protrudes two adjacent fat-and- dtcpvkbbwp-gpczw-gpobvdcdmj hernia sacs which together measure 11 cm [...] Xiong Verified Date/Time: 11/12/2018 22:17:07 Reading Location: [facility] C013W Consult Reading Room 10: 17 PMU/S, [id number] 20:32:00Reason for exam:->HEShould this be performed at the bedside?->YesFINAL REPORT PROCEDURE: Ultrasound-guided paracentesis. INDICATION: Ascites. DESCRIPTION: After obtaining informed written consent, ultrasound scan of the abdomen identified ascites in the left lower quadrant. The overlying skin was prepped and draped in the usual, sterile fashion and local 1% lidocaine anesthesia was administered. A 5 [place]i catheter was advanced into the peritoneal cavity and 4100 mL of cloudy yellow fluid was removed. The catheter was removed without immediate complication. Samples were sent for analysis. IMPRESSION: Uncomplicated ultrasound-guided paracentesis with 4100 mL of fluid removed. Signed: Stuart Dupree Verified Date/Time: 11/12/2018 20:32:52 Reading Location: [facility] P006J Ultrasound Reading Room BODY FLUID CELL COUNT WITH [id number] 20:13:00 Test Item Value Reference Range Comments APPEARANCE FLUID (BEAKER) (test nyno=659) Cloudy Clear COLOR FLUID (BEAKER) (test wtob=170) Yellow Colorless, Straw RBC FLUID (BEAKER) (test bptx=626) 78 /cu mm <=1 ADJUSTED WBC FLUID (BEAKER) (test mzqc=0195) 1355 /cu mm <=5 LINING CELLS (BEAKER) (test mezm=0703) 0 /cu mm <=1 NEUTROPHILS FLUID (BEAKER) (test tnhh=4459) 84 % LYMPHS FLUID (BEAKER) (test byie=601) 4 % MONO/MACROPHAGE FLUID (BEAKER) (test asnp=098) 12 % EOSINOPHILS FLUID (BEAKER) (test hpfk=692) 0 % BASO FLUID (BEAKER) (test ajps=653) 0 % CONTAINER BODY FLUID (BEAKER) (test kbgs=2435) EDTA Tube LACTIC ACID, VENOUS, WHOLE [id number] 18:05:00 Test Item Value Reference Range Comments LACTATE BLOOD VENOUS (2) (BEAKER) (test 2.0 mmol/L 0.5-2.2 umgd=4645) Draw after Albumin infusionPOCT-GLUCOSE [id number] 17:58:00 Test Item Value Reference Range Comments POC-GLUCOSE METER (BEAKER) 185 mg/dL 70-110 TESTED AT [place] [id number] [facility] (test shlp=2988) [facility] [address] POCT-GLUCOSE [id number] 17:36:00 Test Item Value Reference Range Comments POC-GLUCOSE METER (BEAKER) 201 mg/dL 70-110 TESTED AT [address] (test bxio=6677) [facility] [address] U/S, ABDOMINAL, [id number] 16:40:00Abdomen limited area? Add comment if clarification [...] Verified Date/Time: 11/12/2018 16:40 :20 Reading Location: [address] Ultrasound Reading Room U/S, DUPLEX, [id number] 16:40:00Please complete doppler for hepatic vasculatureReason for [...] MDReport Verified Date/Time: 11/12/2018 16:40:20 Reading Location: [address] Ultrasound Reading Room SODIUM, RANDOM [id number] 16:29:00 Test Item Value Reference Range Comments SODIUM URINE (BEAKER) (test fhhb=700) < meq/L Reference Range: No NormalsCREATININE, RANDOM [id number] 16:29:00 Test Item Value Reference Range Comments CREATININE URINE (BEAKER) (test bdeo=489) 237.3 mg/dL Reference Range: No NormalsPROTEIN, RANDOM [id number] 16:25:00 Test Item Value Reference Range Comments PROTEIN, URINE (BEAKER) (test suiu=1493) 15 mg/dL 0-14 OSMOLALITY, [id number] 15:33:00 Test Item Value Reference Range Comments OSMOLALITY URINE (BEAKER) (test vcvq=435) 575 mOsm/kg 40-1,400 URINALYSIS W/ REFLEX URINE [id number] 15:30:00 Test Item Value Reference Range Comments COLOR (BEAKER) (test jyzg=361) Yellow CLARITY (BEAKER) (test lwan=274) Clear SPECIFIC GRAVITY UA (BEAKER) (test heqv=878) 1.020 1.001-1.035 PH UA (BEAKER) (test rqfe=815) 5.5 5.0-8.0 PROTEIN UA (BEAKER) (test eutc=772) 10 mg/dL Negative GLUCOSE UA (BEAKER) (test pxej=031) Negative Negative KETONES UA (BEAKER) (test eyoz=133) Negative Negative BILIRUBIN UA (BEAKER) (test vrlz=599) Negative Negative BLOOD UA (BEAKER) (test rdir=366) Small Negative NITRITE UA (BEAKER) (test mvhl=785) Negative Negative LEUKOCYTE ESTERASE UA (BEAKER) (test qdhd=429) Negative Negative UROBILINOGEN UA (BEAKER) (test hczr=756) 0.2 mg/dL 0.2-1.0 RBC UA (BEAKER) (test onrh=991) 5 /HPF WBC UA (BEAKER) (test qheu=379) 3 /HPF HYALINE CASTS (BEAKER) (test jqfj=645) 7 /LPF SOURCE(BEAKER) (test dtwg=5629) LACTIC ACID, VENOUS, WHOLE [id number] 14:42:00 Test Item Value Reference Range Comments LACTATE BLOOD VENOUS (2) (BEAKER) (test 3.2 mmol/L 0.5-2.2 pmnk=1714) RAD, ABDOMEN/KUB, 1 VIEW [id number] 09:14:00Reason for exam:->persistent vomitignFINAL REPORT TECHNIQUE: Supine radiographs of the abdomen dated 11/12/2018 HISTORY: Persistent vomiting COMPARISON: None IMPRESSION:No air-filled, dilated loops of bowel to suggest obstruction. No free intraperitoneal air. No abnormal soft tissue mass. Multiple vertebral body compression fractures are seen with kyphoplasty material. Small calcification seen in the right upper quadrant are compatible with gallstones. Signed: Gabriela Navarroepelif Verified Date/Time: 11/12/2018 09:14:36 Reading Location: [facility] Radiology Reading Room POCT-GLUCOSE [id number] 07:59:00 Test Item Value Reference Range Comments POC-GLUCOSE METER (BEAKER) 126 mg/dL 70-110 TESTED AT [facility] [address] [facility] (test pzwk=0537) [facility] [address] [id number] 05:20:00 Test Item Value Reference Range Comments MAGNESIUM (BEAKER) (test jnqr=576) 1.9 mg/dL 1.6-2.6 BASIC METABOLIC [id number] 05:20:00 Test Item Value Reference Range Comments SODIUM (BEAKER) (test 132 meq/L 136-145 zusu=677) POTASSIUM (BEAKER) (test 4.4 meq/L 3.5-5.1 vdzt=741) CHLORIDE (BEAKER) (test 108 meq/L 98-107 dfek=600) CO2 (BEAKER) (test 20 meq/L 22-29 iyqy=555) BLOOD UREA NITROGEN 41 mg/dL 7-21 (BEAKER) (test wtzh=209) CREATININE (BEAKER) (test 1.91 mg/dL 0.57-1.25 oujf=117) GLUCOSE RANDOM (BEAKER) 127 mg/dL 70-105 (test rwyy=918) CALCIUM (BEAKER) (test 9.0 mg/dL 8.4-10.2 jafb=729) EGFR (BEAKER) (test 37 mL/min/1.73 sq m ESTIMATED GFR IS NOT lnfv=9483) ACCURATE CREATININE CLEARANCE IN PREDICTING GLOMERULAR FILTRATION RATE. ESTIMATED GFR IS NOT APPLICABLE FOR DIALYSIS PATIENTS. HEPATIC FUNCTION [id number] 05:20:00 Test Item Value Reference Range Comments TOTAL PROTEIN (BEAKER) (test kcms=012) 5.4 gm/dL 6.0-8.3 ALBUMIN (BEAKER) (test xikg=6576) 2.7 g/dL 3.5-5.0 BILIRUBIN TOTAL (BEAKER) (test jrfn=933) 2.0 mg/dL 0.2-1.2 BILIRUBIN DIRECT (BEAKER) (test rfeg=378) 1.2 mg/dL 0.1-0.5 ALKALINE PHOSPHATASE (BEAKER) (test rrly=849) 121 U/L 40-150 AST (SGOT) (BEAKER) (test cnvi=950) 18 U/L 5-34 ALT (SGPT) (BEAKER) (test jgsg=549) 10 U/L 6-55 [id number] 05:05:00 Test Item Value Reference Range Comments PROTIME (BEAKER) (test sspc=169) 20.0 seconds 11.7-14.7 INR (BEAKER) (test awic=092) 1.7 <=5.9 PARTIAL THROMBOPLASTIN TIME (BEAKER) (test 42.4 seconds 22.5-36.0 ztwf=262) RECOMMENDED COUMADIN/WARFARIN INR THERAPY RANGESSTANDARD DOSE: 2.0 - 3.0 Includes: PROPHYLAXIS forvenous thrombosis, systemic embolization; TREATMENT for venous thrombosis and/or pulmonary embolus.HIGH RISK: Target INR is 2.5-3.5 for patients with mechanical heart valves.PROTHROMBIN TIME/[id number] 05:04: 00 Test Item Value Reference Range Comments PROTIME (BEAKER) (test euwx=898) 20.0 seconds 11.7-14.7 INR (BEAKER) (test omyc=589) 1.7 <=5.9 RECOMMENDED COUMADIN/WARFARIN INR THERAPY RANGESSTANDARD DOSE: 2.0 - 3.0 Includes: PROPHYLAXIS forvenous thrombosis, systemic embolization; TREATMENT for venous thrombosis and/or pulmonary embolus.HIGH RISK: Target INR is 2.5-3.5 for patients with mechanical heart valves.POCT-GLUCOSE [id number] 20:49:00 Test Item Value Reference Range Comments POC-GLUCOSE METER (BEAKER) 159 mg/dL 70-110 TESTED AT [address] (test xaik=3502) [facility] [address] RAD, CHEST, 1 VIEW, NON [id number] 17:43:00Reason for exam:->evaluate for pnaShould this be [...] Verified Date/Time: 11/11/2018 17: 43:24 Reading Location: [address] Consult Reading Room PT/[id number] 02:29: 00 Test Item Value Reference Range Comments PROTIME (BEAKER) (test nmyf=294) 19.1 seconds 11.7-14.7 INR (BEAKER) (test lmdv=461) 1.6 <=5.9 PARTIAL THROMBOPLASTIN TIME (BEAKER) (test 42.2 seconds 22.5-36.0 bupf=296) RECOMMENDED COUMADIN/WARFARIN INR THERAPY RANGESSTANDARD DOSE: 2.0 - 3.0 Includes: PROPHYLAXIS forvenous thrombosis, systemic embolization; TREATMENT for venous thrombosis and/or pulmonary embolus.HIGH RISK: Target INR is 2.5-3.5 for patients with mechanical heart valves.[id number] 02:05:00 Test Item Value Reference Range Comments MAGNESIUM (BEAKER) (test wsed=023) 2.2 mg/dL 1.6-2.6 BASIC METABOLIC [id number] 02:05:00 Test Item Value Reference Range Comments SODIUM (BEAKER) (test 130 meq/L 136-145 hgld=379) POTASSIUM (BEAKER) (test 4.8 meq/L 3.5-5.1 dxce=673) CHLORIDE (BEAKER) (test 105 meq/L 98-107 jfpa=025) CO2 (BEAKER) (test 20 meq/L 22-29 sxhr=847) BLOOD UREA NITROGEN 42 mg/dL 7-21 (BEAKER) (test mdbh=997) CREATININE (BEAKER) (test 1.89 mg/dL 0.57-1.25 kall=062) GLUCOSE RANDOM (BEAKER) 114 mg/dL 70-105 (test kfsm=376) CALCIUM (BEAKER) (test 9.2 mg/dL 8.4-10.2 vtoq=128) EGFR (BEAKER) (test 37 mL/min/1.73 sq m ESTIMATED GFR IS NOT nwjl=4779) ACCURATE CREATININE CLEARANCE IN PREDICTING GLOMERULAR FILTRATION RATE. ESTIMATED GFR IS NOT APPLICABLE FOR DIALYSIS PATIENTS. Specimen slightly ictericHEPATIC FUNCTION [id number] 02:05:00 Test Item Value Reference Range Comments TOTAL PROTEIN (BEAKER) (test zfie=430) 5.5 gm/dL 6.0-8.3 ALBUMIN (BEAKER) (test ncrv=7228) 2.8 g/dL 3.5-5.0 BILIRUBIN TOTAL (BEAKER) (test oerz=544) 2.2 mg/dL 0.2-1.2 BILIRUBIN DIRECT (BEAKER) (test ymuu=969) 1.3 mg/dL 0.1-0.5 ALKALINE PHOSPHATASE (BEAKER) (test vmjl=535) 125 U/L 40-150 AST (SGOT) (BEAKER) (test qzup=736) 18 U/L 5-34 ALT (SGPT) (BEAKER) (test mgzb=087) 10 U/L 6-55 Specimen slightly [id number] 01:56:00 Test Item Value Reference Range Comments AMMONIA (BEAKER) (test znel=313) 74 mol/L 18-72 CBC W/PLT COUNT & AUTO [id number] 01:41:00 Test Item Value Reference Range Comments WHITE BLOOD CELL COUNT (BEAKER) (test twot=916) 4.6 K/ L 3.5-10.5 RED BLOOD CELL COUNT (BEAKER) (test qsum=862) 2.69 M/ L 4.63-6.08 HEMOGLOBIN (BEAKER) (test jxjx=899) 8.7 GM/DL 13.7-17.5 HEMATOCRIT (BEAKER) (test kjgf=548) 25.0 % 40.1-51.0 MEAN CORPUSCULAR VOLUME (BEAKER) (test qggy=844) 92.9 fL 79.0-92.2 MEAN CORPUSCULAR HEMOGLOBIN (BEAKER) (test 32.3 pg 25.7-32.2 bzzg=555) MEAN CORPUSCULAR HEMOGLOBIN CONC (BEAKER) (test 34.8 GM/DL 32.3-36.5 jtnf=286) RED CELL DISTRIBUTION WIDTH (BEAKER) (test 15.0 % 11.6-14.4 jqlc=748) PLATELET COUNT (BEAKER) (test gbbp=061) 63 K/CU MM 150-450 MEAN PLATELET VOLUME (BEAKER) (test ezet=104) 9.1 fL 9.4-12.4 NUCLEATED RED BLOOD CELLS (BEAKER) (test 0 /100 WBC 0-0 cnsi=296) NEUTROPHILS RELATIVE PERCENT (BEAKER) (test 65 % rxam=124) LYMPHOCYTES RELATIVE PERCENT (BEAKER) (test 15 % etpt=537) MONOCYTES RELATIVE PERCENT (BEAKER) (test 15 % nvqj=664) EOSINOPHILS RELATIVE PERCENT (BEAKER) (test 4 % mmqv=209) BASOPHILS RELATIVE PERCENT (BEAKER) (test 0 % ftmq=535) NEUTROPHILS ABSOLUTE COUNT (BEAKER) (test 2.97 K/ L 1.78-5.38 kkam=970) LYMPHOCYTES ABSOLUTE COUNT (BEAKER) (test 0.67 K/ L 1.32-3.57 ehce=423) MONOCYTES ABSOLUTE COUNT (BEAKER) (test xheh=666) 0.67 K/ L 0.30-0.82 EOSINOPHILS ABSOLUTE COUNT (BEAKER) (test 0.19 K/ L 0.04-0.54 wkqx=424) BASOPHILS ABSOLUTE COUNT (BEAKER) (test trfw=670) 0.01 K/ L 0.01-0.08 IMMATURE GRANULOCYTES-RELATIVE PERCENT (BEAKER) 1 % 0-1 (test dfor=2355) BODY FLUID CULTURE + GRAM [id number] 09:32:00 Test Item Value Reference Range Comments CULTURE (BEAKER) (test vdtm=0775) No growth GRAM STAIN RESULT (BEAKER) (test No WBCs jygc=6251) GRAM STAIN RESULT (BEAKER) (test No organisms seen pxqs=42518) POCT-GLUCOSE [id number] 07:52:00 Test Item Value Reference Range Comments POC-GLUCOSE METER (BEAKER) 115 mg/dL 70-110 TESTED AT [facility] [address] [facility] (test iuhy=5348) [facility] [address] [id number] 05:18:00 Test Item Value Reference Range Comments MAGNESIUM (BEAKER) (test kzym=800) 1.9 mg/dL 1.6-2.6 COMPREHENSIVE METABOLIC [id number] 05:18:00 Test Item Value Reference Range Comments TOTAL PROTEIN (BEAKER) 5.2 gm/dL 6.0-8.3 (test hwpu=904) ALBUMIN (BEAKER) (test 3.4 g/dL 3.5-5.0 ooqb=8518) ALKALINE PHOSPHATASE 113 U/L 40-150 (BEAKER) (test wbyo=413) BILIRUBIN TOTAL (BEAKER) 2.9 mg/dL 0.2-1.2 (test lqiq=452) SODIUM (BEAKER) (test 131 meq/L 136-145 oymr=949) POTASSIUM (BEAKER) (test 4.0 meq/L 3.5-5.1 vaum=531) CHLORIDE (BEAKER) (test 101 meq/L 98-107 batq=434) CO2 (BEAKER) (test 21 meq/L 22-29 hcwt=838) BLOOD UREA NITROGEN 28 mg/dL 7-21 (BEAKER) (test blwe=719) CREATININE (BEAKER) (test 1.65 mg/dL 0.57-1.25 pyjs=837) GLUCOSE RANDOM (BEAKER) 122 mg/dL 70-105 (test jopk=892) CALCIUM (BEAKER) (test 9.3 mg/dL 8.4-10.2 ondv=448) AST (SGOT) (BEAKER) (test 15 U/L 5-34 msjj=552) ALT (SGPT) (BEAKER) (test 8 U/L 6-55 wqkv=632) EGFR (BEAKER) (test 44 mL/min/1.73 sq m ESTIMATED GFR IS NOT kjpu=5968) ACCURATE CREATININE CLEARANCE IN PREDICTING GLOMERULAR FILTRATION RATE. ESTIMATED GFR IS NOT APPLICABLE FOR DIALYSIS PATIENTS. Specimen slightly ictericPROTHROMBIN [id number] 04:48:00 Test Item Value Reference Range Comments PROTIME (BEAKER) (test heeu=483) 20.9 seconds 11.7-14.7 INR (BEAKER) (test zchz=452) 1.8 <=5.9 RECOMMENDED COUMADIN/WARFARIN INR THERAPY RANGESSTANDARD DOSE: 2.0 - 3.0 Includes: PROPHYLAXIS forvenous thrombosis, systemic embolization; TREATMENT for venous thrombosis and/or pulmonary embolus.HIGH RISK: Target INR is 2.5-3.5 for patients with mechanical heart valves.CBC W/PLT COUNT & AUTO [id number] 04:45:00 Test Item Value Reference Range Comments WHITE BLOOD CELL COUNT (BEAKER) (test jbbp=547) 3.4 K/ L 3.5-10.5 RED BLOOD CELL COUNT (BEAKER) (test mqkv=383) 2.55 M/ L 4.63-6.08 HEMOGLOBIN (BEAKER) (test mouz=331) 8.1 GM/DL 13.7-17.5 HEMATOCRIT (BEAKER) (test jose=106) 24.0 % 40.1-51.0 MEAN CORPUSCULAR VOLUME (BEAKER) (test oomd=658) 94.1 fL 79.0-92.2 MEAN CORPUSCULAR HEMOGLOBIN (BEAKER) (test 31.8 pg 25.7-32.2 nbql=305) MEAN CORPUSCULAR HEMOGLOBIN CONC (BEAKER) (test 33.8 GM/DL 32.3-36.5 fmkz=593) RED CELL DISTRIBUTION WIDTH (BEAKER) (test 15.8 % 11.6-14.4 rmbg=869) PLATELET COUNT (BEAKER) (test xsnf=806) 41 K/CU MM 150-450 MEAN PLATELET VOLUME (BEAKER) (test bkkf=426) 10.0 fL 9.4-12.4 NUCLEATED RED BLOOD CELLS (BEAKER) (test 0 /100 WBC 0-0 vbvd=717) NEUTROPHILS RELATIVE PERCENT (BEAKER) (test 63 % rsoy=830) LYMPHOCYTES RELATIVE PERCENT (BEAKER) (test 19 % pivm=076) MONOCYTES RELATIVE PERCENT (BEAKER) (test 16 % chfp=868) EOSINOPHILS RELATIVE PERCENT (BEAKER) (test 2 % xbhd=962) BASOPHILS RELATIVE PERCENT (BEAKER) (test 0 % spxv=380) NEUTROPHILS ABSOLUTE COUNT (BEAKER) (test 2.13 K/ L 1.78-5.38 lmys=862) LYMPHOCYTES ABSOLUTE COUNT (BEAKER) (test 0.62 K/ L 1.32-3.57 wkbl=860) MONOCYTES ABSOLUTE COUNT (BEAKER) (test xudt=420) 0.52 K/ L 0.30-0.82 EOSINOPHILS ABSOLUTE COUNT (BEAKER) (test 0.08 K/ L 0.04-0.54 rhni=736) BASOPHILS ABSOLUTE COUNT (BEAKER) (test oksv=877) 0.00 K/ L 0.01-0.08 IMMATURE GRANULOCYTES-RELATIVE PERCENT (BEAKER) 0 % 0-1 (test qubu=3253) POCT-GLUCOSE [id number] 21:35:00 Test Item Value Reference Range Comments POC-GLUCOSE METER (BEAKER) 215 mg/dL 70-110 TESTED AT [address] (test kjrm=9175) [facility] [address] POCT-GLUCOSE [id number] 18:17:00 Test Item Value Reference Range Comments POC-GLUCOSE METER (BEAKER) 149 mg/dL 70-110 TESTED AT [address] (test xacf=1386) [facility] [address] COMPREHENSIVE METABOLIC [id number] 07:34:00 Test Item Value Reference Range Comments TOTAL PROTEIN (BEAKER) 4.7 gm/dL 6.0-8.3 Specimen slightly (test gfsx=393) hemolyzed ALBUMIN (BEAKER) (test 3.0 g/dL 3.5-5.0 Specimen slightly dvsx=9437) hemolyzed ALKALINE PHOSPHATASE 107 U/L 40-150 (BEAKER) (test rufy=109) BILIRUBIN TOTAL (BEAKER) 3.1 mg/dL 0.2-1.2 Specimen slightly (test swfl=632) hemolyzed SODIUM (BEAKER) (test 125 meq/L 136-145 lcqt=833) POTASSIUM (BEAKER) (test 4.9 meq/L 3.5-5.1 Specimen slightly bwkc=224) hemolyzed CHLORIDE (BEAKER) (test 96 meq/L 98-107 zhsp=897) CO2 (BEAKER) (test 24 meq/L 22-29 dtil=290) BLOOD UREA NITROGEN 30 mg/dL 7-21 (BEAKER) (test ijia=137) CREATININE (BEAKER) (test 1.61 mg/dL 0.57-1.25 Specimen slightly xwsy=565) hemolyzed GLUCOSE RANDOM (BEAKER) 127 mg/dL 70-105 (test nxbi=178) CALCIUM (BEAKER) (test 8.6 mg/dL 8.4-10.2 cktp=556) AST (SGOT) (BEAKER) (test 17 U/L 5-34 Specimen slightly avwo=450) hemolyzed ALT (SGPT) (BEAKER) (test < U/L 6-55 Specimen slightly date=186) hemolyzed EGFR (BEAKER) (test 45 mL/min/1.73 sq m ESTIMATED GFR IS NOT exqc=2823) ACCURATE CREATININE CLEARANCE IN PREDICTING GLOMERULAR FILTRATION RATE. ESTIMATED GFR IS NOT APPLICABLE FOR DIALYSIS PATIENTS. Specimen slightly [id number] 06:49:00 Test Item Value Reference Range Comments PHOSPHORUS (BEAKER) (test avoc=677) 3.0 mg/dL 2.3-4.7 [id number] 06:49:00 Test Item Value Reference Range Comments MAGNESIUM (BEAKER) (test ioqu=778) 2.0 mg/dL 1.6-2.6 PROTHROMBIN [id number] 06:39:00 Test Item Value Reference Range Comments PROTIME (BEAKER) (test nfht=434) 23.0 seconds 11.7-14.7 INR (BEAKER) (test shbp=207) 2.0 <=5.9 RECOMMENDED COUMADIN/WARFARIN INR THERAPY RANGESSTANDARD DOSE: 2.0 - 3.0 Includes: PROPHYLAXIS forvenous thrombosis, systemic embolization; TREATMENT for venous thrombosis and/or pulmonary embolus.HIGH RISK: Target INR is 2.5-3.5 for patients with mechanical heart valves.CBC W/PLT COUNT & AUTO [id number] 06:37:00 Test Item Value Reference Range Comments WHITE BLOOD CELL COUNT (BEAKER) (test pdjs=612) 3.3 K/ L 3.5-10.5 RED BLOOD CELL COUNT (BEAKER) (test ircm=755) 2.43 M/ L 4.63-6.08 HEMOGLOBIN (BEAKER) (test lisn=094) 7.8 GM/DL 13.7-17.5 HEMATOCRIT (BEAKER) (test kivn=480) 22.7 % 40.1-51.0 MEAN CORPUSCULAR VOLUME (BEAKER) (test mtlw=105) 93.4 fL 79.0-92.2 MEAN CORPUSCULAR HEMOGLOBIN (BEAKER) (test 32.1 pg 25.7-32.2 izup=767) MEAN CORPUSCULAR HEMOGLOBIN CONC (BEAKER) (test 34.4 GM/DL 32.3-36.5 xbok=071) RED CELL DISTRIBUTION WIDTH (BEAKER) (test 15.7 % 11.6-14.4 smdu=511) PLATELET COUNT (BEAKER) (test zoka=957) 37 K/CU MM 150-450 MEAN PLATELET VOLUME (BEAKER) (test cjdk=089) 9.6 fL 9.4-12.4 NUCLEATED RED BLOOD CELLS (BEAKER) (test 0 /100 WBC 0-0 sbgu=977) NEUTROPHILS RELATIVE PERCENT (BEAKER) (test 70 % ofdc=329) LYMPHOCYTES RELATIVE PERCENT (BEAKER) (test 16 % moxw=987) MONOCYTES RELATIVE PERCENT (BEAKER) (test 11 % scuy=184) EOSINOPHILS RELATIVE PERCENT (BEAKER) (test 2 % noxy=904) BASOPHILS RELATIVE PERCENT (BEAKER) (test 0 % sgra=232) NEUTROPHILS ABSOLUTE COUNT (BEAKER) (test 2.29 K/ L 1.78-5.38 bmnh=265) LYMPHOCYTES ABSOLUTE COUNT (BEAKER) (test 0.51 K/ L 1.32-3.57 hmgu=686) MONOCYTES ABSOLUTE COUNT (BEAKER) (test okss=145) 0.37 K/ L 0.30-0.82 EOSINOPHILS ABSOLUTE COUNT (BEAKER) (test 0.07 K/ L 0.04-0.54 ssxo=122) BASOPHILS ABSOLUTE COUNT (BEAKER) (test zsxi=196) 0.01 K/ L 0.01-0.08 IMMATURE GRANULOCYTES-RELATIVE PERCENT (BEAKER) 0 % 0-1 (test lqhu=1373) CALCIUM, [id number] 06:36:00 Test Item Value Reference Range Comments CALCIUM IONIZED (BEAKER) (test uekr=795) 1.00 mmol/L 1.12-1.27 PH, BLOOD (BEAKER) (test yfcp=5072) 7.53 POCT-GLUCOSE [id number] 22:31:00 Test Item Value Reference Range Comments POC-GLUCOSE METER (BEAKER) 185 mg/dL 70-110 TESTED AT [address] (test wlta=4107) [place] [id number] POCT-GLUCOSE [id number] 16:03:00 Test Item Value Reference Range Comments POC-GLUCOSE METER (BEAKER) 166 mg/dL 70-110 TESTED AT [address] (test vnew=3461) [place] [id number] POCT-GLUCOSE [id number] 12:05:00 Test Item Value Reference Range Comments POC-GLUCOSE METER (BEAKER) 175 mg/dL 70-110 TESTED AT [address] (test vmmg=4431) [place] [id number] POCT-GLUCOSE [id number] 08:02:00 Test Item Value Reference Range Comments POC-GLUCOSE METER (BEAKER) 162 mg/dL 70-110 TESTED AT [address] (test yucf=2695) [place] [id number] 03:52:00 Test Item Value Reference Range Comments MAGNESIUM (BEAKER) (test 2.1 mg/dL 1.6-2.6 Specimen slightly hemolyzed uxyq=560) [id number] 03:52:00 Test Item Value Reference Range Comments PHOSPHORUS (BEAKER) (test 3.0 mg/dL 2.3-4.7 Specimen slightly hemolyzed jyui=554) COMPREHENSIVE METABOLIC [id number] 03:52:00 Test Item Value Reference Range Comments TOTAL PROTEIN (BEAKER) 4.9 gm/dL 6.0-8.3 Specimen slightly (test slkh=414) hemolyzed ALBUMIN (BEAKER) (test 3.2 g/dL 3.5-5.0 Specimen slightly mrqs=8277) hemolyzed ALKALINE PHOSPHATASE 109 U/L 40-150 (BEAKER) (test nldo=881) BILIRUBIN TOTAL (BEAKER) 2.7 mg/dL 0.2-1.2 Specimen slightly (test wjwl=691) hemolyzed SODIUM (BEAKER) (test 125 meq/L 136-145 yejq=003) POTASSIUM (BEAKER) (test 4.7 meq/L 3.5-5.1 Specimen slightly nazu=203) hemolyzed CHLORIDE (BEAKER) (test 96 meq/L 98-107 fxkl=596) CO2 (BEAKER) (test 23 meq/L 22-29 xpml=664) BLOOD UREA NITROGEN 27 mg/dL 7-21 (BEAKER) (test iqzc=459) CREATININE (BEAKER) (test 1.86 mg/dL 0.57-1.25 Specimen slightly fsga=518) hemolyzed GLUCOSE RANDOM (BEAKER) 164 mg/dL 70-105 (test lsso=468) CALCIUM (BEAKER) (test 8.4 mg/dL 8.4-10.2 pmbm=156) AST (SGOT) (BEAKER) (test 17 U/L 5-34 Specimen slightly rmpn=475) hemolyzed ALT (SGPT) (BEAKER) (test 6 U/L 6-55 Specimen slightly ivqk=634) hemolyzed EGFR (BEAKER) (test 38 mL/min/1.73 sq m ESTIMATED GFR IS NOT hwyl=8380) ACCURATE CREATININE CLEARANCE IN PREDICTING GLOMERULAR FILTRATION RATE. ESTIMATED GFR IS NOT APPLICABLE FOR DIALYSIS PATIENTS. Specimen slightly ictericCALCIUM, [id number] 03:13:00 Test Item Value Reference Range Comments CALCIUM IONIZED (BEAKER) (test oiuu=913) 0.94 mmol/L 1.12-1.27 PH, BLOOD (BEAKER) (test ovmp=1683) 7.55 PROTHROMBIN [id number] 03:10:00 Test Item Value Reference Range Comments PROTIME (BEAKER) (test cyal=931) 22.6 seconds 11.7-14.7 INR (BEAKER) (test oqzg=813) 2.0 <=5.9 RECOMMENDED COUMADIN/WARFARIN INR THERAPY RANGESSTANDARD DOSE: 2.0 - 3.0 Includes: PROPHYLAXIS forvenous thrombosis, systemic embolization; TREATMENT for venous thrombosis and/or pulmonary embolus.HIGH RISK: Target INR is 2.5-3.5 for patients with mechanical heart valves.CBC W/PLT COUNT & AUTO [id number] 03:03:00 Test Item Value Reference Range Comments WHITE BLOOD CELL COUNT (BEAKER) (test ratj=251) 3.4 K/ L 3.5-10.5 RED BLOOD CELL COUNT (BEAKER) (test oibp=861) 2.46 M/ L 4.63-6.08 HEMOGLOBIN (BEAKER) (test qlpf=028) 7.8 GM/DL 13.7-17.5 HEMATOCRIT (BEAKER) (test yskd=132) 23.5 % 40.1-51.0 MEAN CORPUSCULAR VOLUME (BEAKER) (test knfp=609) 95.5 fL 79.0-92.2 MEAN CORPUSCULAR HEMOGLOBIN (BEAKER) (test 31.7 pg 25.7-32.2 jlqx=710) MEAN CORPUSCULAR HEMOGLOBIN CONC (BEAKER) (test 33.2 GM/DL 32.3-36.5 ortf=368) RED CELL DISTRIBUTION WIDTH (BEAKER) (test 15.6 % 11.6-14.4 qzod=238) PLATELET COUNT (BEAKER) (test eapk=865) 44 K/CU MM 150-450 MEAN PLATELET VOLUME (BEAKER) (test nrgm=467) 10.6 fL 9.4-12.4 NUCLEATED RED BLOOD CELLS (BEAKER) (test 0 /100 WBC 0-0 qbfq=272) NEUTROPHILS RELATIVE PERCENT (BEAKER) (test 79 % femi=984) LYMPHOCYTES RELATIVE PERCENT (BEAKER) (test 12 % lskj=800) MONOCYTES RELATIVE PERCENT (BEAKER) (test 8 % uoqf=580) EOSINOPHILS RELATIVE PERCENT (BEAKER) (test 0 % whxs=992) BASOPHILS RELATIVE PERCENT (BEAKER) (test 0 % kkxl=097) NEUTROPHILS ABSOLUTE COUNT (BEAKER) (test 2.67 K/ L 1.78-5.38 qyyw=392) LYMPHOCYTES ABSOLUTE COUNT (BEAKER) (test 0.41 K/ L 1.32-3.57 ojil=192) MONOCYTES ABSOLUTE COUNT (BEAKER) (test vohu=081) 0.27 K/ L 0.30-0.82 EOSINOPHILS ABSOLUTE COUNT (BEAKER) (test 0.01 K/ L 0.04-0.54 seue=454) BASOPHILS ABSOLUTE COUNT (BEAKER) (test uidf=195) 0.01 K/ L 0.01-0.08 IMMATURE GRANULOCYTES-RELATIVE PERCENT (BEAKER) 0 % 0-1 (test fons=6212) POCT-GLUCOSE [id number] 22:50:00 Test Item Value Reference Range Comments POC-GLUCOSE METER (BEAKER) 199 mg/dL 70-110 TESTED AT [facility] [address] [facility] (test guet=1202) [facility] [address] BODY FLUID CELL COUNT WITH [id number] 21:09:00 Test Item Value Reference Range Comments APPEARANCE FLUID (BEAKER) (test ttxn=538) Clear Clear COLOR FLUID (BEAKER) (test eruc=334) Yellow Colorless, Straw RBC FLUID (BEAKER) (test uavk=213) 140 /cu mm <=1 ADJUSTED WBC FLUID (BEAKER) (test ypoo=3951) 70 /cu mm <=5 LINING CELLS (BEAKER) (test dzrd=7070) 0 /cu mm <=1 NEUTROPHILS FLUID (BEAKER) (test emrg=2773) 5 % LYMPHS FLUID (BEAKER) (test utka=291) 18 % MONO/MACROPHAGE FLUID (BEAKER) (test oyis=971) 77 % EOSINOPHILS FLUID (BEAKER) (test drzt=590) 0 % BASO FLUID (BEAKER) (test zghg=065) 0 % CONTAINER BODY FLUID (BEAKER) (test qmvt=2746) EDTA Tube CORTISOL,60 [id number] 20:10:00 Test Item Value Reference Range Comments CORTISOL BASELINE NETWORKED (BEAKER) (test 5.6 mcg/dL rxzl=8130) CORTISOL 30 MINUTE NETWORKED (BEAKER) (test 13.7 mcg/dL opsf=4012) CORTISOL, 60 MINUTE (BEAKER) (test gfvo=4040) 17.1 ug/dL ACTH STIMULATION TEST INTERPRETATION GUIDELINES(Synonyms: [...] study by Mindy et al (NEVAEH 2000,283( 8):0242-45), the ACTH Stimulation Test provides important prognostic [...] serum cortisollevel 60 minutes after cosyntropin administration.CORTISOL,30 [id number] 19:45:00 Test Item Value Reference Range Comments CORTISOL BASELINE NETWORKED (BEAKER) (test 5.6 mcg/dL kxfl=3215) CORTISOL, 30 MINUTE (BEAKER) (test ujky=5759) 13.7 ug/dL ACTH STIMULATION TEST INTERPRETATION GUIDELINES(Synonyms: [...] study by Mindy et al (NEVAEH 2000,283( 8):9221-45), the ACTH Stimulation Test provides important prognostic [...] serum cortisollevel 60 minutes after cosyntropin administration.U/S, [id number] 19:13:00Reason for exam:->therapeuticFINAL REPORT PROCEDURE: Ultrasound- guided paracentesis. INDICATION: Ascites. DESCRIPTION: After obtaining informed written consent, ultrasound scan of the abdomen identified ascites in the right lower quadrant. The overlying skin was prepped and draped in the usual, sterile fashion and local 1% lidocaine anesthesia was administered. A 5 Yemeni catheter was advanced into the peritoneal cavity and 6000 mL of area fluid was removed. The catheter was removed without immediate complication. Samples were sent for analysis. IMPRESSION:Uncomplicated ultrasound-guided paracentesis with 6000 mL of fluid removed. Signed: Stuart Dupree Verified Date/Time: 09/08/2018 19 :13:16 Reading Location: [facility] [id number] Ultrasound Reading Room Electronically signed by: Claudia WEAVER 09/08/2018 07:13 PMCORTISOL, [id number] 18:54:00 Test Item Value Reference Range Comments CORTISOL, BASELINE (BEAKER) (test mlji=0478) 5.6 ug/dL ACTH STIMULATION TEST INTERPRETATION GUIDELINES(Synonyms: [...] serum cortisollevel 60 minutes after cosyntropin administration.POCT-GLUCOSE [id number] 12:49:00 Test Item Value Reference Range Comments POC-GLUCOSE METER (BEAKER) 184 mg/dL 70-110 TESTED AT [address] (test judt=4962) [facility] [address] POCT-GLUCOSE [id number] 07:56:00 Test Item Value Reference Range Comments POC-GLUCOSE METER (BEAKER) 174 mg/dL 70-110 TESTED AT [address] (test pvjj=1816) [facility] [address] B-TYPE NATRIURETIC FACTOR (BNP)2018-09-08 05:20:00 Test Item Value Reference Range Comments B-TYPE NATRIURETIC PEPTIDE (BEAKER) (test 900 pg/mL 0-100 xhwf=335) [id number] 05:15:00 Test Item Value Reference Range Comments PHOSPHORUS (BEAKER) (test tydd=107) 3.2 mg/dL 2.3-4.7 [id number] 05:15:00 Test Item Value Reference Range Comments MAGNESIUM (BEAKER) (test eexu=173) 2.1 mg/dL 1.6-2.6 COMPREHENSIVE METABOLIC [id number] 05:15:00 Test Item Value Reference Range Comments TOTAL PROTEIN (BEAKER) 4.9 gm/dL 6.0-8.3 (test sney=344) ALBUMIN (BEAKER) (test 3.2 g/dL 3.5-5.0 guuz=1800) ALKALINE PHOSPHATASE 109 U/L 40-150 (BEAKER) (test qpev=869) BILIRUBIN TOTAL (BEAKER) 2.7 mg/dL 0.2-1.2 (test lqqw=212) SODIUM (BEAKER) (test 128 meq/L 136-145 kgoj=498) POTASSIUM (BEAKER) (test 3.9 meq/L 3.5-5.1 nquu=541) CHLORIDE (BEAKER) (test 98 meq/L 98-107 xjio=203) CO2 (BEAKER) (test 23 meq/L 22-29 gwun=328) BLOOD UREA NITROGEN 27 mg/dL 7-21 (BEAKER) (test plgk=113) CREATININE (BEAKER) (test 2.17 mg/dL 0.57-1.25 zjgo=285) GLUCOSE RANDOM (BEAKER) 136 mg/dL 70-105 (test ulik=993) CALCIUM (BEAKER) (test 8.6 mg/dL 8.4-10.2 wasf=404) AST (SGOT) (BEAKER) (test 15 U/L 5-34 dhfa=678) ALT (SGPT) (BEAKER) (test 7 U/L 6-55 yqky=029) EGFR (BEAKER) (test 32 mL/min/1.73 sq m ESTIMATED GFR IS NOT vjri=0619) ACCURATE CREATININE CLEARANCE IN PREDICTING GLOMERULAR FILTRATION RATE. ESTIMATED GFR IS NOT APPLICABLE FOR DIALYSIS PATIENTS. Specimen slightly ictericPROTHROMBIN TIME/[id number] 05:01:00 Test Item Value Reference Range Comments PROTIME (BEAKER) (test vuhu=245) 22.0 seconds 11.7-14.7 INR (BEAKER) (test kumo=610) 1.9 <=5.9 RECOMMENDED COUMADIN/WARFARIN INR THERAPY RANGESSTANDARD DOSE: 2.0 - 3.0 Includes: PROPHYLAXIS forvenous thrombosis, systemic embolization; TREATMENT for venous thrombosis and/or pulmonary embolus.HIGH RISK: Target INR is 2.5-3.5 for patients with mechanical heart valves.CBC W/PLT COUNT & AUTO [id number] 04:55:00 Test Item Value Reference Range Comments WHITE BLOOD CELL COUNT (BEAKER) (test kupl=611) 4.3 K/ L 3.5-10.5 RED BLOOD CELL COUNT (BEAKER) (test ckew=567) 2.46 M/ L 4.63-6.08 HEMOGLOBIN (BEAKER) (test hapo=230) 7.9 GM/DL 13.7-17.5 HEMATOCRIT (BEAKER) (test bkum=999) 23.3 % 40.1-51.0 MEAN CORPUSCULAR VOLUME (BEAKER) (test idkh=274) 94.7 fL 79.0-92.2 MEAN CORPUSCULAR HEMOGLOBIN (BEAKER) (test 32.1 pg 25.7-32.2 xmdj=960) MEAN CORPUSCULAR HEMOGLOBIN CONC (BEAKER) (test 33.9 GM/DL 32.3-36.5 ierj=085) RED CELL DISTRIBUTION WIDTH (BEAKER) (test 15.6 % 11.6-14.4 retq=657) PLATELET COUNT (BEAKER) (test roiz=917) 43 K/CU MM 150-450 MEAN PLATELET VOLUME (BEAKER) (test nped=764) 9.6 fL 9.4-12.4 NUCLEATED RED BLOOD CELLS (BEAKER) (test 0 /100 WBC 0-0 bogh=881) NEUTROPHILS RELATIVE PERCENT (BEAKER) (test 63 % xgwt=517) LYMPHOCYTES RELATIVE PERCENT (BEAKER) (test 13 % ucfg=601) MONOCYTES RELATIVE PERCENT (BEAKER) (test 19 % hjgm=443) EOSINOPHILS RELATIVE PERCENT (BEAKER) (test 5 % ogql=401) BASOPHILS RELATIVE PERCENT (BEAKER) (test 0 % cbif=963) NEUTROPHILS ABSOLUTE COUNT (BEAKER) (test 2.72 K/ L 1.78-5.38 kgpr=933) LYMPHOCYTES ABSOLUTE COUNT (BEAKER) (test 0.55 K/ L 1.32-3.57 cuta=235) MONOCYTES ABSOLUTE COUNT (BEAKER) (test kwij=016) 0.81 K/ L 0.30-0.82 EOSINOPHILS ABSOLUTE COUNT (BEAKER) (test 0.21 K/ L 0.04-0.54 vdpj=434) BASOPHILS ABSOLUTE COUNT (BEAKER) (test vjsq=573) 0.01 K/ L 0.01-0.08 IMMATURE GRANULOCYTES-RELATIVE PERCENT (BEAKER) 0 % 0-1 (test tfmc=3623) POCT-GLUCOSE [id number] 23:33:00 Test Item Value Reference Range Comments POC-GLUCOSE METER (BEAKER) 156 mg/dL 70-110 TESTED AT [address] (test cqpg=6427) [facility] [address] POCT-GLUCOSE [id number] 18:09:00 Test Item Value Reference Range Comments POC-GLUCOSE METER (BEAKER) 170 mg/dL 70-110 TESTED AT [address] (test jzzy=4973) [facility] [address] POCT-GLUCOSE [id number] 12:01:00 Test Item Value Reference Range Comments POC-GLUCOSE METER (BEAKER) 181 mg/dL 70-110 TESTED AT [address] (test kiby=6482) [facility] [address] PROTHROMBIN [id number] 08:17:00 Test Item Value Reference Range Comments PROTIME (BEAKER) (test qqqr=256) 21.9 seconds 11.7-14.7 INR (BEAKER) (test rqgv=690) 1.9 <=5.9 RECOMMENDED COUMADIN/WARFARIN INR THERAPY RANGESSTANDARD DOSE: 2.0 - 3.0 Includes: PROPHYLAXIS forvenous thrombosis, systemic embolization; TREATMENT for venous thrombosis and/or pulmonary embolus.HIGH RISK: Target INR is 2.5-3.5 for patients with mechanical heart valves.POCT-GLUCOSE [id number] 08:07:00 Test Item Value Reference Range Comments POC-GLUCOSE METER (BEAKER) 205 mg/dL 70-110 TESTED AT [facility] [address] [facility] (test xtnr=9216) [facility] [address] COMPREHENSIVE METABOLIC [id number] 07:29:00 Test Item Value Reference Range Comments TOTAL PROTEIN (BEAKER) 4.9 gm/dL 6.0-8.3 (test gxme=660) ALBUMIN (BEAKER) (test 3.3 g/dL 3.5-5.0 wgey=0879) ALKALINE PHOSPHATASE 106 U/L 40-150 (BEAKER) (test goyz=923) BILIRUBIN TOTAL (BEAKER) 2.6 mg/dL 0.2-1.2 (test nfqs=375) SODIUM (BEAKER) (test 129 meq/L 136-145 dumk=201) POTASSIUM (BEAKER) (test 4.9 meq/L 3.5-5.1 bxbu=501) CHLORIDE (BEAKER) (test 98 meq/L 98-107 ldcl=859) CO2 (BEAKER) (test 23 meq/L 22-29 lskg=079) BLOOD UREA NITROGEN 28 mg/dL 7-21 (BEAKER) (test levj=916) CREATININE (BEAKER) (test 2.31 mg/dL 0.57-1.25 rfrb=794) GLUCOSE RANDOM (BEAKER) 172 mg/dL 70-105 (test fjrr=159) CALCIUM (BEAKER) (test 8.5 mg/dL 8.4-10.2 tbdm=562) AST (SGOT) (BEAKER) (test 15 U/L 5-34 djyj=685) ALT (SGPT) (BEAKER) (test 6 U/L 6-55 bzaj=977) EGFR (BEAKER) (test 30 mL/min/1.73 sq m ESTIMATED GFR IS NOT uyuv=5323) ACCURATE CREATININE CLEARANCE IN PREDICTING GLOMERULAR FILTRATION RATE. ESTIMATED GFR IS NOT APPLICABLE FOR DIALYSIS PATIENTS. Specimen slightly ictericCBC W/PLT COUNT & AUTO [id number] 07:11 :00 Test Item Value Reference Range Comments WHITE BLOOD CELL COUNT (BEAKER) (test mhzj=380) 4.5 K/ L 3.5-10.5 RED BLOOD CELL COUNT (BEAKER) (test wvqf=815) 2.47 M/ L 4.63-6.08 HEMOGLOBIN (BEAKER) (test zgiv=150) 7.8 GM/DL 13.7-17.5 HEMATOCRIT (BEAKER) (test vfpx=726) 23.3 % 40.1-51.0 MEAN CORPUSCULAR VOLUME (BEAKER) (test mzrt=216) 94.3 fL 79.0-92.2 MEAN CORPUSCULAR HEMOGLOBIN (BEAKER) (test 31.6 pg 25.7-32.2 gpwl=058) MEAN CORPUSCULAR HEMOGLOBIN CONC (BEAKER) (test 33.5 GM/DL 32.3-36.5 srhq=913) RED CELL DISTRIBUTION WIDTH (BEAKER) (test 15.4 % 11.6-14.4 jkfu=513) PLATELET COUNT (BEAKER) (test zaux=876) 43 K/CU MM 150-450 MEAN PLATELET VOLUME (BEAKER) (test hjkd=790) 8.7 fL 9.4-12.4 NUCLEATED RED BLOOD CELLS (BEAKER) (test 0 /100 WBC 0-0 igbf=121) NEUTROPHILS RELATIVE PERCENT (BEAKER) (test 64 % jmzf=101) LYMPHOCYTES RELATIVE PERCENT (BEAKER) (test 11 % bdcn=964) MONOCYTES RELATIVE PERCENT (BEAKER) (test 20 % favk=260) EOSINOPHILS RELATIVE PERCENT (BEAKER) (test 4 % atmw=566) BASOPHILS RELATIVE PERCENT (BEAKER) (test 0 % zxxy=653) NEUTROPHILS ABSOLUTE COUNT (BEAKER) (test 2.86 K/ L 1.78-5.38 lvzh=040) LYMPHOCYTES ABSOLUTE COUNT (BEAKER) (test 0.49 K/ L 1.32-3.57 mhiv=720) MONOCYTES ABSOLUTE COUNT (BEAKER) (test gpaq=075) 0.90 K/ L 0.30-0.82 EOSINOPHILS ABSOLUTE COUNT (BEAKER) (test 0.18 K/ L 0.04-0.54 mwvz=015) BASOPHILS ABSOLUTE COUNT (BEAKER) (test lzai=545) 0.02 K/ L 0.01-0.08 IMMATURE GRANULOCYTES-RELATIVE PERCENT (BEAKER) 0 % 0-1 (test ldmr=6847) POCT-GLUCOSE [id number] 22:31:00 Test Item Value Reference Range Comments POC-GLUCOSE METER (BEAKER) 161 mg/dL 70-110 TESTED AT [address] (test flkx=4715) [facility] [address] POCT-GLUCOSE [id number] 16:31:00 Test Item Value Reference Range Comments POC-GLUCOSE METER (BEAKER) 135 mg/dL 70-110 TESTED AT [address] (test ihtn=9537) [facility] [address] POCT-GLUCOSE [id number] 12:16:00 Test Item Value Reference Range Comments POC-GLUCOSE METER (BEAKER) 144 mg/dL 70-110 TESTED AT [address] (test xxwq=1829) [facility] [address] POCT-GLUCOSE [id number] 07:53:00 Test Item Value Reference Range Comments POC-GLUCOSE METER (BEAKER) 93 mg/dL 70-110 TESTED AT [address] (test yjzy=3856) [facility] [address] COMPREHENSIVE METABOLIC [id number] 06:55:00 Test Item Value Reference Range Comments TOTAL PROTEIN (BEAKER) 4.8 gm/dL 6.0-8.3 (test qoud=799) ALBUMIN (BEAKER) (test 3.3 g/dL 3.5-5.0 pofk=3520) ALKALINE PHOSPHATASE 103 U/L 40-150 (BEAKER) (test sfwf=734) BILIRUBIN TOTAL (BEAKER) 2.7 mg/dL 0.2-1.2 (test uxdz=946) SODIUM (BEAKER) (test 125 meq/L 136-145 fsxi=548) POTASSIUM (BEAKER) (test 4.6 meq/L 3.5-5.1 cvwf=025) CHLORIDE (BEAKER) (test 96 meq/L 98-107 fana=697) CO2 (BEAKER) (test 22 meq/L 22-29 dsct=562) BLOOD UREA NITROGEN 30 mg/dL 7-21 (BEAKER) (test qkuw=502) CREATININE (BEAKER) (test 2.01 mg/dL 0.57-1.25 maqo=945) GLUCOSE RANDOM (BEAKER) 88 mg/dL 70-105 (test htzt=066) CALCIUM (BEAKER) (test 8.5 mg/dL 8.4-10.2 poit=926) AST (SGOT) (BEAKER) (test 17 U/L 5-34 wxnt=984) ALT (SGPT) (BEAKER) (test 7 U/L 6-55 skgr=732) EGFR (BEAKER) (test 35 mL/min/1.73 sq m ESTIMATED GFR IS NOT pztw=4595) ACCURATE CREATININE CLEARANCE IN PREDICTING GLOMERULAR FILTRATION RATE. ESTIMATED GFR IS NOT APPLICABLE FOR DIALYSIS PATIENTS. Specimen slightly ictericPROTHROMBIN [id number] 06:10:00 Test Item Value Reference Range Comments PROTIME (BEAKER) (test wyur=044) 23.2 seconds 11.7-14.7 INR (BEAKER) (test bzyl=002) 2.1 <=5.9 RECOMMENDED COUMADIN/WARFARIN INR THERAPY RANGESSTANDARD DOSE: 2.0 - 3.0 Includes: PROPHYLAXIS forvenous thrombosis, systemic embolization; TREATMENT for venous thrombosis and/or pulmonary embolus.HIGH RISK: Target INR is 2.5-3.5 for patients with mechanical heart valves.POCT-GLUCOSE [id number] 22:42:00 Test Item Value Reference Range Comments POC-GLUCOSE METER (BEAKER) 124 mg/dL 70-110 TESTED AT [address] (test fwqp=5868) [facility] [address] POCT-GLUCOSE [id number] 17:04:00 Test Item Value Reference Range Comments POC-GLUCOSE METER (BEAKER) 86 mg/dL 70-110 TESTED AT [address] (test kvqp=3268) [facility] [address] POCT-GLUCOSE [id number] 12:08:00 Test Item Value Reference Range Comments POC-GLUCOSE METER (BEAKER) 159 mg/dL 70-110 TESTED AT [address] (test ompb=9007) [facility] [address] [id number] 08:39:00 Test Item Value Reference Range Comments PHOSPHORUS (BEAKER) (test smpn=957) 3.9 mg/dL 2.3-4.7 [id number] 08:39:00 Test Item Value Reference Range Comments MAGNESIUM (BEAKER) (test izvk=055) 2.1 mg/dL 1.6-2.6 COMPREHENSIVE METABOLIC [id number] 08:39:00 Test Item Value Reference Range Comments TOTAL PROTEIN (BEAKER) 5.2 gm/dL 6.0-8.3 (test znse=116) ALBUMIN (BEAKER) (test 3.5 g/dL 3.5-5.0 hpdq=0446) ALKALINE PHOSPHATASE 110 U/L 40-150 (BEAKER) (test rjrm=188) BILIRUBIN TOTAL (BEAKER) 2.4 mg/dL 0.2-1.2 (test uobw=095) SODIUM (BEAKER) (test 122 meq/L 136-145 yuxa=552) POTASSIUM (BEAKER) (test 4.5 meq/L 3.5-5.1 ewno=853) CHLORIDE (BEAKER) (test 94 meq/L 98-107 ucez=186) CO2 (BEAKER) (test 20 meq/L 22-29 zznc=336) BLOOD UREA NITROGEN 31 mg/dL 7-21 (BEAKER) (test lyou=104) CREATININE (BEAKER) (test 1.94 mg/dL 0.57-1.25 chom=626) GLUCOSE RANDOM (BEAKER) 127 mg/dL 70-105 (test qrpb=988) CALCIUM (BEAKER) (test 8.6 mg/dL 8.4-10.2 lxaa=799) AST (SGOT) (BEAKER) (test 17 U/L 5-34 kkut=120) ALT (SGPT) (BEAKER) (test 8 U/L 6-55 cebl=304) EGFR (BEAKER) (test 36 mL/min/1.73 sq m ESTIMATED GFR IS NOT onzu=6005) ACCURATE CREATININE CLEARANCE IN PREDICTING GLOMERULAR FILTRATION RATE. ESTIMATED GFR IS NOT APPLICABLE FOR DIALYSIS PATIENTS. Specimen slightly ictericPOCT-GLUCOSE [id number] 07:49:00 Test Item Value Reference Range Comments POC-GLUCOSE METER (BEAKER) 132 mg/dL 70-110 TESTED AT [facility] [address] [facility] (test rsbg=6466) [place] [address] CALCIUM, [id number] 06:35:00 Test Item Value Reference Range Comments CALCIUM IONIZED (BEAKER) (test bsvy=702) 1.08 mmol/L 1.12-1.27 PH, BLOOD (BEAKER) (test ygfu=5592) 7.39 CBC W/PLT COUNT & AUTO [id number] 05:56:00 Test Item Value Reference Range Comments WHITE BLOOD CELL COUNT (BEAKER) (test xfqe=541) 4.1 K/ L 3.5-10.5 RED BLOOD CELL COUNT (BEAKER) (test fqok=329) 2.67 M/ L 4.63-6.08 HEMOGLOBIN (BEAKER) (test eems=265) 8.3 GM/DL 13.7-17.5 HEMATOCRIT (BEAKER) (test sdxm=576) 24.7 % 40.1-51.0 MEAN CORPUSCULAR VOLUME (BEAKER) (test kxeo=946) 92.5 fL 79.0-92.2 MEAN CORPUSCULAR HEMOGLOBIN (BEAKER) (test 31.1 pg 25.7-32.2 jwhg=813) MEAN CORPUSCULAR HEMOGLOBIN CONC (BEAKER) (test 33.6 GM/DL 32.3-36.5 imke=405) RED CELL DISTRIBUTION WIDTH (BEAKER) (test 15.0 % 11.6-14.4 aylv=068) PLATELET COUNT (BEAKER) (test srny=752) 58 K/CU MM 150-450 MEAN PLATELET VOLUME (BEAKER) (test rgpt=015) 9.3 fL 9.4-12.4 NUCLEATED RED BLOOD CELLS (BEAKER) (test 0 /100 WBC 0-0 tqhj=930) NEUTROPHILS RELATIVE PERCENT (BEAKER) (test 64 % irgn=939) LYMPHOCYTES RELATIVE PERCENT (BEAKER) (test 12 % oluw=220) MONOCYTES RELATIVE PERCENT (BEAKER) (test 18 % nddh=056) EOSINOPHILS RELATIVE PERCENT (BEAKER) (test 5 % kkgq=734) BASOPHILS RELATIVE PERCENT (BEAKER) (test 0 % uktu=105) NEUTROPHILS ABSOLUTE COUNT (BEAKER) (test 2.63 K/ L 1.78-5.38 bbsm=380) LYMPHOCYTES ABSOLUTE COUNT (BEAKER) (test 0.51 K/ L 1.32-3.57 zehv=326) MONOCYTES ABSOLUTE COUNT (BEAKER) (test wflk=444) 0.74 K/ L 0.30-0.82 EOSINOPHILS ABSOLUTE COUNT (BEAKER) (test 0.21 K/ L 0.04-0.54 hwpz=351) BASOPHILS ABSOLUTE COUNT (BEAKER) (test ruqv=699) 0.01 K/ L 0.01-0.08 IMMATURE GRANULOCYTES-RELATIVE PERCENT (BEAKER) 1 % 0-1 (test bxbo=0890) PROTHROMBIN [id number] 05:49:00 Test Item Value Reference Range Comments PROTIME (BEAKER) (test wdso=966) 20.4 seconds 11.7-14.7 INR (BEAKER) (test lyau=482) 1.8 <=5.9 RECOMMENDED COUMADIN/WARFARIN INR THERAPY RANGESSTANDARD DOSE: 2.0 - 3.0 Includes: PROPHYLAXIS forvenous thrombosis, systemic embolization; TREATMENT for venous thrombosis and/or pulmonary embolus.HIGH RISK: Target INR is 2.5-3.5 for patients with mechanical heart valves.[id number] 22:31:00 Test Item Value Reference Range Comments SODIUM (BEAKER) (test fuel=018) 123 meq/L 136-145 POTASSIUM (BEAKER) (test yfzi=796) 4.5 meq/L 3.5-5.1 CHLORIDE (BEAKER) (test brvg=066) 94 meq/L 98-107 CO2 (BEAKER) (test hsef=383) 22 meq/L 22-29 Call results "at a decent hour" to [phone]-GLUCOSE [id number] 21: 48:00 Test Item Value Reference Range Comments POC-GLUCOSE METER (BEAKER) 144 mg/dL 70-110 TESTED AT [address] (test dssg=7812) [facility] [address] [id number] 17:27:00 Test Item Value Reference Range Comments CORTISOL, TOTAL (BEAKER) (test xarn=5417) 1.9 ug/dL 3.7-19.4 [id number] 17:03:00 Test Item Value Reference Range Comments SODIUM (BEAKER) (test bypp=477) 123 meq/L 136-145 POTASSIUM (BEAKER) (test aqbj=297) 4.7 meq/L 3.5-5.1 CHLORIDE (BEAKER) (test qaxm=485) 95 meq/L 98-107 CO2 (BEAKER) (test iynj=884) 21 meq/L 22-29 Call resultsPOCT-GLUCOSE [id number] 16:48:00 Test Item Value Reference Range Comments POC-GLUCOSE METER (BEAKER) 117 mg/dL 70-110 TESTED AT [address] (test fruk=9904) [place] [address] SODIUM, RANDOM [id number] 15:12:00 Test Item Value Reference Range Comments SODIUM URINE (BEAKER) (test rdwb=805) < meq/L Reference Range: No NormalsCREATININE, RANDOM [id number] 15:11:00 Test Item Value Reference Range Comments CREATININE URINE (BEAKER) (test jxol=427) 87.5 mg/dL Reference Range: No NormalsOSMOLALITY, [id number] 15:05:00 Test Item Value Reference Range Comments OSMOLALITY URINE (BEAKER) (test rauc=290) 234 mOsm/kg 40-1,400 POCT-GLUCOSE [id number] 13:14:00 Test Item Value Reference Range Comments POC-GLUCOSE METER (BEAKER) 129 mg/dL 70-110 TESTED AT [address] (test fzvi=1947) [place] [address] [id number] 10:06:00 Test Item Value Reference Range Comments SODIUM (BEAKER) (test flrq=399) 120 meq/L 136-145 POTASSIUM (BEAKER) (test uyht=068) 4.6 meq/L 3.5-5.1 CHLORIDE (BEAKER) (test jufn=074) 93 meq/L 98-107 CO2 (BEAKER) (test yvro=204) 23 meq/L 22-29 Call [id number] 09:01:00 Test Item Value Reference Range Comments POC-GLUCOSE METER (BEAKER) 97 mg/dL 70-110 TESTED AT [address] (test yxld=5653) [place] [id number] COMPREHENSIVE METABOLIC [id number] 08:40:00 Test Item Value Reference Range Comments TOTAL PROTEIN (BEAKER) 5.2 gm/dL 6.0-8.3 (test uamo=648) ALBUMIN (BEAKER) (test 3.7 g/dL 3.5-5.0 qenz=0037) ALKALINE PHOSPHATASE 104 U/L 40-150 (BEAKER) (test psyv=355) BILIRUBIN TOTAL (BEAKER) 3.3 mg/dL 0.2-1.2 (test jhke=113) SODIUM (BEAKER) (test 120 meq/L 136-145 kvga=386) POTASSIUM (BEAKER) (test 4.8 meq/L 3.5-5.1 ddhs=112) CHLORIDE (BEAKER) (test 93 meq/L 98-107 jpzh=630) CO2 (BEAKER) (test 20 meq/L 22-29 goal=227) BLOOD UREA NITROGEN 31 mg/dL 7-21 (BEAKER) (test kdkg=516) CREATININE (BEAKER) (test 1.72 mg/dL 0.57-1.25 ixfb=074) GLUCOSE RANDOM (BEAKER) 99 mg/dL 70-105 (test ggci=348) CALCIUM (BEAKER) (test 8.9 mg/dL 8.4-10.2 ovjk=061) AST (SGOT) (BEAKER) (test 16 U/L 5-34 lihf=898) ALT (SGPT) (BEAKER) (test < U/L 6-55 slxi=814) EGFR (BEAKER) (test 42 mL/min/1.73 sq m ESTIMATED GFR IS NOT sqnv=8942) ACCURATE CREATININE CLEARANCE IN PREDICTING GLOMERULAR FILTRATION RATE. ESTIMATED GFR IS NOT APPLICABLE FOR DIALYSIS PATIENTS. Specimen slightly [id number] 08:14:00 Test Item Value Reference Range Comments PHOSPHORUS (BEAKER) (test yojw=459) 3.8 mg/dL 2.3-4.7 [id number] 08:14:00 Test Item Value Reference Range Comments MAGNESIUM (BEAKER) (test pkms=299) 2.1 mg/dL 1.6-2.6 CALCIUM, [id number] 06:56:00 Test Item Value Reference Range Comments CALCIUM IONIZED (BEAKER) (test jpwa=130) 1.12 mmol/L 1.12-1.27 PH, BLOOD (BEAKER) (test widv=3665) 7.36 CBC W/PLT COUNT & AUTO [id number] 06:38:00 Test Item Value Reference Range Comments WHITE BLOOD CELL COUNT (BEAKER) (test pebf=627) 4.9 K/ L 3.5-10.5 RED BLOOD CELL COUNT (BEAKER) (test vvjl=157) 2.69 M/ L 4.63-6.08 HEMOGLOBIN (BEAKER) (test hdaw=179) 8.3 GM/DL 13.7-17.5 HEMATOCRIT (BEAKER) (test mued=306) 24.8 % 40.1-51.0 MEAN CORPUSCULAR VOLUME (BEAKER) (test wywl=156) 92.2 fL 79.0-92.2 MEAN CORPUSCULAR HEMOGLOBIN (BEAKER) (test 30.9 pg 25.7-32.2 njhv=981) MEAN CORPUSCULAR HEMOGLOBIN CONC (BEAKER) (test 33.5 GM/DL 32.3-36.5 lpsm=288) RED CELL DISTRIBUTION WIDTH (BEAKER) (test 14.8 % 11.6-14.4 stdj=071) PLATELET COUNT (BEAKER) (test ogbz=889) 65 K/CU MM 150-450 MEAN PLATELET VOLUME (BEAKER) (test jpsb=501) 9.1 fL 9.4-12.4 NUCLEATED RED BLOOD CELLS (BEAKER) (test 0 /100 WBC 0-0 qgzf=218) NEUTROPHILS RELATIVE PERCENT (BEAKER) (test 67 % ixqr=330) LYMPHOCYTES RELATIVE PERCENT (BEAKER) (test 10 % vzqy=803) MONOCYTES RELATIVE PERCENT (BEAKER) (test 17 % auyh=541) EOSINOPHILS RELATIVE PERCENT (BEAKER) (test 5 % xqkr=002) BASOPHILS RELATIVE PERCENT (BEAKER) (test 0 % zvnt=028) NEUTROPHILS ABSOLUTE COUNT (BEAKER) (test 3.32 K/ L 1.78-5.38 lyel=745) LYMPHOCYTES ABSOLUTE COUNT (BEAKER) (test 0.51 K/ L 1.32-3.57 twgr=295) MONOCYTES ABSOLUTE COUNT (BEAKER) (test dbnu=073) 0.83 K/ L 0.30-0.82 EOSINOPHILS ABSOLUTE COUNT (BEAKER) (test 0.23 K/ L 0.04-0.54 xfkc=860) BASOPHILS ABSOLUTE COUNT (BEAKER) (test ggjw=751) 0.02 K/ L 0.01-0.08 IMMATURE GRANULOCYTES-RELATIVE PERCENT (BEAKER) 1 % 0-1 (test xnbi=7787) [id number] 06:35:00 Test Item Value Reference Range Comments PARTIAL THROMBOPLASTIN TIME (BEAKER) (test 52.6 seconds 22.5-36.0 gsvb=020) PROTHROMBIN [id number] 06:34:00 Test Item Value Reference Range Comments PROTIME (BEAKER) (test duoi=037) 21.6 seconds 11.7-14.7 INR (BEAKER) (test iglk=375) 1.9 <=5.9 RECOMMENDED COUMADIN/WARFARIN INR THERAPY RANGESSTANDARD DOSE: 2.0 - 3.0 Includes: PROPHYLAXIS forvenous thrombosis, systemic embolization; TREATMENT for venous thrombosis and/or pulmonary embolus.HIGH RISK: Target INR is 2.5-3.5 for patients with mechanical heart valves.POCT-GLUCOSE [id number] 22:00:00 Test Item Value Reference Range Comments POC-GLUCOSE METER (BEAKER) 114 mg/dL 70-110 TESTED AT [address] (test nnxv=6103) [facility] [address] POCT-GLUCOSE [id number] 17:57:00 Test Item Value Reference Range Comments POC-GLUCOSE METER (BEAKER) 139 mg/dL 70-110 TESTED AT [address] (test nczt=5772) [facility] [address] POCT-GLUCOSE [id number] 11:57:00 Test Item Value Reference Range Comments POC-GLUCOSE METER (BEAKER) 146 mg/dL 70-110 TESTED AT [address] (test tgcw=9888) [facility] [address] POCT-GLUCOSE [id number] 09:16:00 Test Item Value Reference Range Comments POC-GLUCOSE METER (BEAKER) 109 mg/dL 70-110 TESTED AT [address] (test tpmo=1295) [facility] [address] COMPREHENSIVE METABOLIC [id number] 05:53:00 Test Item Value Reference Range Comments TOTAL PROTEIN (BEAKER) 5.2 gm/dL 6.0-8.3 (test xkwi=247) ALBUMIN (BEAKER) (test 3.8 g/dL 3.5-5.0 duwt=6080) ALKALINE PHOSPHATASE 110 U/L 40-150 (BEAKER) (test nwjk=560) BILIRUBIN TOTAL (BEAKER) 4.5 mg/dL 0.2-1.2 (test txhm=962) SODIUM (BEAKER) (test 124 meq/L 136-145 qjbv=809) POTASSIUM (BEAKER) (test 4.5 meq/L 3.5-5.1 oayq=223) CHLORIDE (BEAKER) (test 95 meq/L 98-107 fwrd=775) CO2 (BEAKER) (test 22 meq/L 22-29 ugpw=485) BLOOD UREA NITROGEN 30 mg/dL 7-21 (BEAKER) (test dujj=484) CREATININE (BEAKER) (test 1.67 mg/dL 0.57-1.25 qqgw=082) GLUCOSE RANDOM (BEAKER) 99 mg/dL 70-105 (test hggy=866) CALCIUM (BEAKER) (test 9.0 mg/dL 8.4-10.2 utmx=633) AST (SGOT) (BEAKER) (test 16 U/L 5-34 iprg=471) ALT (SGPT) (BEAKER) (test < U/L 6-55 bvoc=015) EGFR (BEAKER) (test 43 mL/min/1.73 sq m ESTIMATED GFR IS NOT ltaj=8090) ACCURATE CREATININE CLEARANCE IN PREDICTING GLOMERULAR FILTRATION RATE. ESTIMATED GFR IS NOT APPLICABLE FOR DIALYSIS PATIENTS. Specimen slightly [id number] 05:50:00 Test Item Value Reference Range Comments PHOSPHORUS (BEAKER) (test mazd=125) 3.7 mg/dL 2.3-4.7 [id number] 05:50:00 Test Item Value Reference Range Comments MAGNESIUM (BEAKER) (test ewwq=729) 2.1 mg/dL 1.6-2.6 CBC W/PLT COUNT & AUTO [id number] 05:28:00 Test Item Value Reference Range Comments WHITE BLOOD CELL COUNT (BEAKER) (test hhir=982) 4.0 K/ L 3.5-10.5 RED BLOOD CELL COUNT (BEAKER) (test brkx=659) 2.80 M/ L 4.63-6.08 HEMOGLOBIN (BEAKER) (test iaok=893) 8.7 GM/DL 13.7-17.5 HEMATOCRIT (BEAKER) (test cvob=592) 25.8 % 40.1-51.0 MEAN CORPUSCULAR VOLUME (BEAKER) (test csus=423) 92.1 fL 79.0-92.2 MEAN CORPUSCULAR HEMOGLOBIN (BEAKER) (test 31.1 pg 25.7-32.2 fyhi=805) MEAN CORPUSCULAR HEMOGLOBIN CONC (BEAKER) (test 33.7 GM/DL 32.3-36.5 lbqo=484) RED CELL DISTRIBUTION WIDTH (BEAKER) (test 14.7 % 11.6-14.4 cxit=604) PLATELET COUNT (BEAKER) (test zser=249) 42 K/CU MM 150-450 MEAN PLATELET VOLUME (BEAKER) (test lxko=877) 9.8 fL 9.4-12.4 NUCLEATED RED BLOOD CELLS (BEAKER) (test 0 /100 WBC 0-0 etzz=301) NEUTROPHILS RELATIVE PERCENT (BEAKER) (test 59 % pmjq=068) LYMPHOCYTES RELATIVE PERCENT (BEAKER) (test 15 % ggho=692) MONOCYTES RELATIVE PERCENT (BEAKER) (test 20 % ohso=982) EOSINOPHILS RELATIVE PERCENT (BEAKER) (test 5 % rxml=343) BASOPHILS RELATIVE PERCENT (BEAKER) (test 1 % adky=521) NEUTROPHILS ABSOLUTE COUNT (BEAKER) (test 2.37 K/ L 1.78-5.38 eqps=666) LYMPHOCYTES ABSOLUTE COUNT (BEAKER) (test 0.58 K/ L 1.32-3.57 xwaw=006) MONOCYTES ABSOLUTE COUNT (BEAKER) (test pzhv=664) 0.78 K/ L 0.30-0.82 EOSINOPHILS ABSOLUTE COUNT (BEAKER) (test 0.21 K/ L 0.04-0.54 ixid=246) BASOPHILS ABSOLUTE COUNT (BEAKER) (test swlk=274) 0.02 K/ L 0.01-0.08 IMMATURE GRANULOCYTES-RELATIVE PERCENT (BEAKER) 1 % 0-1 (test nyiz=4523) PROTHROMBIN [id number] 05:26:00 Test Item Value Reference Range Comments PROTIME (BEAKER) (test qzlt=500) 23.3 seconds 11.7-14.7 INR (BEAKER) (test pqds=979) 2.1 <=5.9 RECOMMENDED COUMADIN/WARFARIN INR THERAPY RANGESSTANDARD DOSE: 2.0 - 3.0 Includes: PROPHYLAXIS forvenous thrombosis, systemic embolization; TREATMENT for venous thrombosis and/or pulmonary embolus.HIGH RISK: Target INR is 2.5-3.5 for patients with mechanical heart valves.CALCIUM, [id number] 05:21:00 Test Item Value Reference Range Comments CALCIUM IONIZED (BEAKER) (test ecsw=708) 1.11 mmol/L 1.12-1.27 PH, BLOOD (BEAKER) (test prnz=9362) 7.40 POCT-GLUCOSE [id number] 21:47:00 Test Item Value Reference Range Comments POC-GLUCOSE METER (BEAKER) 129 mg/dL 70-110 TESTED AT [facility] [address] [facility] (test elaf=5643) [facility] [address] RAD, CHEST, 1 VIEW, NON [id number] 17:18:00Reason for exam:->sobFINAL REPORT Comparison: 08/26/2018 TECHNIQUE: Single view of the chest FINDINGS: Lung volumes are low. Bibasilar densities may represent atelectasis. Otherwise lungs are clear. Cardiac silhouette is within normal limits. Soft tissues and bones are unremarkable. Signed: [facility] Verified Date/Time: 09/02/2018 17:18:49 Reading Location: [facility] Mammo Reading Room CBC W/ PLT COUNT & AUTO [id number] 17:16:00 Test Item Value Reference Range Comments WHITE BLOOD CELL COUNT (BEAKER) (test pcdl=680) 3.8 K/ L 3.5-10.5 RED BLOOD CELL COUNT (BEAKER) (test mhbk=741) 2.37 M/ L 4.63-6.08 HEMOGLOBIN (BEAKER) (test cbon=891) 7.4 GM/DL 13.7-17.5 HEMATOCRIT (BEAKER) (test fbma=037) 21.8 % 40.1-51.0 MEAN CORPUSCULAR VOLUME (BEAKER) (test grgz=107) 92.0 fL 79.0-92.2 MEAN CORPUSCULAR HEMOGLOBIN (BEAKER) (test 31.2 pg 25.7-32.2 rjxw=142) MEAN CORPUSCULAR HEMOGLOBIN CONC (BEAKER) (test 33.9 GM/DL 32.3-36.5 brrc=901) RED CELL DISTRIBUTION WIDTH (BEAKER) (test 14.9 % 11.6-14.4 dhce=628) PLATELET COUNT (BEAKER) (test ixph=481) 41 K/CU MM 150-450 MEAN PLATELET VOLUME (BEAKER) (test gvnt=580) 8.8 fL 9.4-12.4 NUCLEATED RED BLOOD CELLS (BEAKER) (test 0 /100 WBC 0-0 fwjr=791) NEUTROPHILS RELATIVE PERCENT (BEAKER) (test 62 % zkud=948) LYMPHOCYTES RELATIVE PERCENT (BEAKER) (test 14 % ugse=164) MONOCYTES RELATIVE PERCENT (BEAKER) (test 18 % ydxk=603) EOSINOPHILS RELATIVE PERCENT (BEAKER) (test 4 % fjvi=596) BASOPHILS RELATIVE PERCENT (BEAKER) (test 0 % sign=766) NEUTROPHILS ABSOLUTE COUNT (BEAKER) (test 2.39 K/ L 1.78-5.38 cuwp=877) LYMPHOCYTES ABSOLUTE COUNT (BEAKER) (test 0.55 K/ L 1.32-3.57 vfnp=474) MONOCYTES ABSOLUTE COUNT (BEAKER) (test tsaz=625) 0.69 K/ L 0.30-0.82 EOSINOPHILS ABSOLUTE COUNT (BEAKER) (test 0.17 K/ L 0.04-0.54 wyob=223) BASOPHILS ABSOLUTE COUNT (BEAKER) (test xwwc=992) 0.01 K/ L 0.01-0.08 IMMATURE GRANULOCYTES-RELATIVE PERCENT (BEAKER) 1 % 0-1 (test bylq=9228) POCT-BLOOD GASES, [id number] 16:58:00 Test Item Value Reference Range Comments TEMP, CELSIUS-POC (BEAKER) 37.0 (test camt=3781) FIO2-POC (BEAKER) (test TESTED AT [facility] [address] [facility] akip=1863) [facility] [address] PH, ARTERIAL-POC (BEAKER) 7.412 7.350-7.450 (test mkmq=8826) PCO2, ARTERIAL-POC (BEAKER) 35.5 mm Hg 35.0-45.0 (test ikcp=7156) PO2, ARTERIAL-POC (BEAKER) 69.0 mm Hg 80.0-90.0 (test ebhw=1071) SO2, ARTERIAL-POC (BEAKER) 94.0 % 96.0-97.0 (test xpog=2699) HCO3, ARTERIAL-POC (BEAKER) 22.6 meq/L 21.0-29.0 (test yyxy=6738) BASE EXCESS, ARTERIAL-POC -2.0 meq/L -2.0-3.0 (BEAKER) (test ygtx=8635) [id number] 16:58:00 Test Item Value Reference Range Comments POC-SODIUM (BEAKER) (test 125 meq/L 135-148 TESTED AT [address] tmkz=2855) [place] [address] [id number] 16:58:00 Test Item Value Reference Range Comments POC-POTASSIUM (BEAKER) (test 4.2 meq/L 3.6-5.5 TESTED AT [address] efkc=7104) [place] [address] [id number] 16:58:00 Test Item Value Reference Range Comments POC-GLUCOSE (BEAKER) (test 128 mg/dL 70-110 TESTED AT [address] innk=0071) [place] [address] POCT-CALCIUM [id number] 16:58:00 Test Item Value Reference Range Comments POC-CALCIUM IONIZED (BEAKER) 1.24 mmol/L 1.12-1.27 TESTED AT [address] (test ilua=1166) [place] [address] [id number] 16:58:00 Test Item Value Reference Range Comments POC-HEMATOCRIT (BEAKER) (test 21 % 40-50 TESTED AT [address] vuno=1315) [place] [address] [id number] 16:58:00 Test Item Value Reference Range Comments POC-HEMOGLOBIN (BEAKER) 7.1 g/dL 13.0-16.8 TESTED AT [address] (test txqs=1408) [place] [address]TESTED AT [place] [address] POCT-LACTIC ACID, [id number] 16:58:00 Test Item Value Reference Range Comments POC-LACTIC ACID, ARTERIAL 1.0 mmol/L 0.4-1.3 TESTED AT [address] (BEAKER) (test krmh=8785) [place] [address] POCT-GLUCOSE [id number] 11:43:00 Test Item Value Reference Range Comments POC-GLUCOSE METER (BEAKER) 169 mg/dL 70-110 TESTED AT [facility] [address] [facility] (test dzne=3015) [facility] [address] POCT-GLUCOSE [id number] 08:23:00 Test Item Value Reference Range Comments POC-GLUCOSE METER (BEAKER) 128 mg/dL 70-110 TESTED AT [facility] [address] [facility] (test xeio=6407) [facility] [address] [id number] 05:16:00 Test Item Value Reference Range Comments PHOSPHORUS (BEAKER) (test gjzy=385) 3.8 mg/dL 2.3-4.7 [id number] 05:16:00 Test Item Value Reference Range Comments MAGNESIUM (BEAKER) (test kewd=429) 2.0 mg/dL 1.6-2.6 COMPREHENSIVE METABOLIC [id number] 05:16:00 Test Item Value Reference Range Comments TOTAL PROTEIN (BEAKER) 5.0 gm/dL 6.0-8.3 (test wexa=018) ALBUMIN (BEAKER) (test 3.5 g/dL 3.5-5.0 hgck=7003) ALKALINE PHOSPHATASE 124 U/L 40-150 (BEAKER) (test hvll=754) BILIRUBIN TOTAL (BEAKER) 2.2 mg/dL 0.2-1.2 (test aiko=980) SODIUM (BEAKER) (test 125 meq/L 136-145 cysd=865) POTASSIUM (BEAKER) (test 4.4 meq/L 3.5-5.1 tpwy=789) CHLORIDE (BEAKER) (test 96 meq/L 98-107 ozlt=962) CO2 (BEAKER) (test 23 meq/L 22-29 yxwr=313) BLOOD UREA NITROGEN 27 mg/dL 7-21 (BEAKER) (test mmbw=682) CREATININE (BEAKER) (test 1.74 mg/dL 0.57-1.25 qksb=588) GLUCOSE RANDOM (BEAKER) 112 mg/dL 70-105 (test wtcq=880) CALCIUM (BEAKER) (test 8.8 mg/dL 8.4-10.2 iceq=134) AST (SGOT) (BEAKER) (test 17 U/L 5-34 jttq=951) ALT (SGPT) (BEAKER) (test 7 U/L 6-55 qlvh=486) EGFR (BEAKER) (test 41 mL/min/1.73 sq m ESTIMATED GFR IS NOT rmju=9320) ACCURATE CREATININE CLEARANCE IN PREDICTING GLOMERULAR FILTRATION RATE. ESTIMATED GFR IS NOT APPLICABLE FOR DIALYSIS PATIENTS. CALCIUM, [id number] 05:13:00 Test Item Value Reference Range Comments CALCIUM IONIZED (BEAKER) (test grio=154) 1.10 mmol/L 1.12-1.27 PH, BLOOD (BEAKER) (test xzmh=4515) 7.44 CBC W/PLT COUNT & AUTO [id number] 05:02:00 Test Item Value Reference Range Comments WHITE BLOOD CELL COUNT (BEAKER) (test bjeu=759) 3.2 K/ L 3.5-10.5 RED BLOOD CELL COUNT (BEAKER) (test cxxa=663) 2.23 M/ L 4.63-6.08 HEMOGLOBIN (BEAKER) (test pioy=698) 6.9 GM/DL 13.7-17.5 HEMATOCRIT (BEAKER) (test xesc=299) 20.8 % 40.1-51.0 MEAN CORPUSCULAR VOLUME (BEAKER) (test cqiu=766) 93.3 fL 79.0-92.2 MEAN CORPUSCULAR HEMOGLOBIN (BEAKER) (test 30.9 pg 25.7-32.2 khfj=050) MEAN CORPUSCULAR HEMOGLOBIN CONC (BEAKER) (test 33.2 GM/DL 32.3-36.5 qtgp=051) RED CELL DISTRIBUTION WIDTH (BEAKER) (test 14.6 % 11.6-14.4 zgly=764) PLATELET COUNT (BEAKER) (test lvxw=852) 43 K/CU MM 150-450 MEAN PLATELET VOLUME (BEAKER) (test yavs=402) 9.3 fL 9.4-12.4 NUCLEATED RED BLOOD CELLS (BEAKER) (test 0 /100 WBC 0-0 olvg=184) NEUTROPHILS RELATIVE PERCENT (BEAKER) (test 58 % ypqp=177) LYMPHOCYTES RELATIVE PERCENT (BEAKER) (test 17 % jvdi=907) MONOCYTES RELATIVE PERCENT (BEAKER) (test 18 % fxhx=014) EOSINOPHILS RELATIVE PERCENT (BEAKER) (test 5 % xzae=189) BASOPHILS RELATIVE PERCENT (BEAKER) (test 1 % wxzt=516) NEUTROPHILS ABSOLUTE COUNT (BEAKER) (test 1.84 K/ L 1.78-5.38 rzcb=543) LYMPHOCYTES ABSOLUTE COUNT (BEAKER) (test 0.54 K/ L 1.32-3.57 sxga=495) MONOCYTES ABSOLUTE COUNT (BEAKER) (test boqp=430) 0.56 K/ L 0.30-0.82 EOSINOPHILS ABSOLUTE COUNT (BEAKER) (test 0.15 K/ L 0.04-0.54 xohu=166) BASOPHILS ABSOLUTE COUNT (BEAKER) (test wmwj=525) 0.02 K/ L 0.01-0.08 IMMATURE GRANULOCYTES-RELATIVE PERCENT (BEAKER) 1 % 0-1 (test vvct=3476) PROTHROMBIN [id number] 05:00:00 Test Item Value Reference Range Comments PROTIME (BEAKER) (test bhie=713) 22.7 seconds 11.7-14.7 INR (BEAKER) (test rpkp=826) 2.0 <=5.9 RECOMMENDED COUMADIN/WARFARIN INR THERAPY RANGESSTANDARD DOSE: 2.0 - 3.0 Includes: PROPHYLAXIS forvenous thrombosis, systemic embolization; TREATMENT for venous thrombosis and/or pulmonary embolus.HIGH RISK: Target INR is 2.5-3.5 for patients with mechanical heart valves.POCT-GLUCOSE [id number] 22:18:00 Test Item Value Reference Range Comments POC-GLUCOSE METER (BEAKER) 194 mg/dL 70-110 TESTED AT [address] (test vonr=0475) [place] [address] POCT-GLUCOSE [id number] 17:33:00 Test Item Value Reference Range Comments POC-GLUCOSE METER (BEAKER) 160 mg/dL 70-110 TESTED AT [address] (test vfoh=5707) [place] [address] POCT-GLUCOSE [id number] 11:56:00 Test Item Value Reference Range Comments POC-GLUCOSE METER (BEAKER) 151 mg/dL 70-110 TESTED AT [address] (test aqos=2029) [place] [address] URINALYSIS W/ [id number] 09:52:00 Test Item Value Reference Range Comments COLOR (BEAKER) (test rhht=477) Yellow CLARITY (BEAKER) (test tpcd=300) Clear SPECIFIC GRAVITY UA (BEAKER) (test 1.014 1.001-1.035 bsmq=380) PH UA (BEAKER) (test dsgv=738) 5.5 5.0-8.0 PROTEIN UA (BEAKER) (test adka=931) Negative Negative GLUCOSE UA (BEAKER) (test omip=488) Negative Negative KETONES UA (BEAKER) (test tchv=626) Negative Negative BILIRUBIN UA (BEAKER) (test uqaq=336) Negative Negative BLOOD UA (BEAKER) (test rucr=045) Negative Negative NITRITE UA (BEAKER) (test mqrw=054) Negative Negative LEUKOCYTE ESTERASE UA (BEAKER) (test Negative Negative jnhv=349) UROBILINOGEN UA (BEAKER) (test ficd=295) 0.2 mg/dL 0.2-1.0 RBC UA (BEAKER) (test otyw=958) 1 /HPF WBC UA (BEAKER) (test nxhj=874) 4 /HPF BACTERIA (BEAKER) (test xtez=188) Rare MUCUS (BEAKER) (test bfsl=6281) Rare HYALINE CASTS (BEAKER) (test cack=772) 19 /LPF YEAST (BEAKER) (test hkym=5753) Rare SOURCE(BEAKER) (test qxjf=3778) Urine, Clean Catch SODIUM, RANDOM [id number] 09:09:00 Test Item Value Reference Range Comments SODIUM URINE (BEAKER) (test jwsk=444) < meq/L Reference Range: No NormalsCREATININE, RANDOM [id number] 09:04:00 Test Item Value Reference Range Comments CREATININE URINE (BEAKER) (test isxo=194) 149.6 mg/dL Reference Range: No NormalsPOCT-GLUCOSE [id number] 08:12:00 Test Item Value Reference Range Comments POC-GLUCOSE METER (BEAKER) 106 mg/dL 70-110 [facility] [address] [facility] (test mhbz=9808) [facility] [address] CBC W/PLT COUNT & AUTO [id number] 06:56:00 Test Item Value Reference Range Comments WHITE BLOOD CELL COUNT (BEAKER) (test qbvb=798) 4.5 K/ L 3.5-10.5 RED BLOOD CELL COUNT (BEAKER) (test fugb=350) 2.22 M/ L 4.63-6.08 HEMOGLOBIN (BEAKER) (test cvyb=154) 7.0 GM/DL 13.7-17.5 HEMATOCRIT (BEAKER) (test lbxn=609) 20.6 % 40.1-51.0 MEAN CORPUSCULAR VOLUME (BEAKER) (test udth=380) 92.8 fL 79.0-92.2 MEAN CORPUSCULAR HEMOGLOBIN (BEAKER) (test 31.5 pg 25.7-32.2 pzdx=958) MEAN CORPUSCULAR HEMOGLOBIN CONC (BEAKER) (test 34.0 GM/DL 32.3-36.5 oubu=724) RED CELL DISTRIBUTION WIDTH (BEAKER) (test 14.7 % 11.6-14.4 ygqh=431) PLATELET COUNT (BEAKER) (test juzb=523) 44 K/CU MM 150-450 MEAN PLATELET VOLUME (BEAKER) (test amkm=051) 9.0 fL 9.4-12.4 NUCLEATED RED BLOOD CELLS (BEAKER) (test 0 /100 WBC 0-0 amnf=776) NEUTROPHILS RELATIVE PERCENT (BEAKER) (test 69 % jokd=000) LYMPHOCYTES RELATIVE PERCENT (BEAKER) (test 12 % wcoy=493) MONOCYTES RELATIVE PERCENT (BEAKER) (test 14 % mddi=550) EOSINOPHILS RELATIVE PERCENT (BEAKER) (test 4 % nzzh=319) BASOPHILS RELATIVE PERCENT (BEAKER) (test 0 % brwr=357) NEUTROPHILS ABSOLUTE COUNT (BEAKER) (test 3.12 K/ L 1.78-5.38 nkok=142) LYMPHOCYTES ABSOLUTE COUNT (BEAKER) (test 0.55 K/ L 1.32-3.57 bsts=636) MONOCYTES ABSOLUTE COUNT (BEAKER) (test xzel=385) 0.62 K/ L 0.30-0.82 EOSINOPHILS ABSOLUTE COUNT (BEAKER) (test 0.18 K/ L 0.04-0.54 jipw=972) BASOPHILS ABSOLUTE COUNT (BEAKER) (test pqzc=591) 0.00 K/ L 0.01-0.08 IMMATURE GRANULOCYTES-RELATIVE PERCENT (BEAKER) 1 % 0-1 (test tpmk=1954) [id number] 06:41:00 Test Item Value Reference Range Comments PHOSPHORUS (BEAKER) (test jdpm=848) 2.7 mg/dL 2.3-4.7 [id number] 06:41:00 Test Item Value Reference Range Comments MAGNESIUM (BEAKER) (test cfgt=896) 2.0 mg/dL 1.6-2.6 COMPREHENSIVE METABOLIC [id number] 06:41:00 Test Item Value Reference Range Comments TOTAL PROTEIN (BEAKER) 4.9 gm/dL 6.0-8.3 (test hnqo=520) ALBUMIN (BEAKER) (test 3.1 g/dL 3.5-5.0 wnrf=1342) ALKALINE PHOSPHATASE 148 U/L 40-150 (BEAKER) (test bipa=858) BILIRUBIN TOTAL (BEAKER) 1.9 mg/dL 0.2-1.2 (test rwqa=802) SODIUM (BEAKER) (test 123 meq/L 136-145 ocjt=483) POTASSIUM (BEAKER) (test 3.9 meq/L 3.5-5.1 veji=438) CHLORIDE (BEAKER) (test 94 meq/L 98-107 anhp=516) CO2 (BEAKER) (test 22 meq/L 22-29 odbr=777) BLOOD UREA NITROGEN 24 mg/dL 7-21 (BEAKER) (test uxfp=540) CREATININE (BEAKER) (test 1.55 mg/dL 0.57-1.25 kxwo=625) GLUCOSE RANDOM (BEAKER) 95 mg/dL 70-105 (test coyx=431) CALCIUM (BEAKER) (test 8.5 mg/dL 8.4-10.2 zovr=901) AST (SGOT) (BEAKER) (test 18 U/L 5-34 gyxk=797) ALT (SGPT) (BEAKER) (test 10 U/L 6-55 qklk=822) EGFR (BEAKER) (test 47 mL/min/1.73 sq m ESTIMATED GFR IS NOT nsvt=7448) ACCURATE CREATININE CLEARANCE IN PREDICTING GLOMERULAR FILTRATION RATE. ESTIMATED GFR IS NOT APPLICABLE FOR DIALYSIS PATIENTS. BILIRUBIN, [id number] 06:41:00 Test Item Value Reference Range Comments BILIRUBIN DIRECT (BEAKER) (test eirv=644) 1.3 mg/dL 0.1-0.5 PROTHROMBIN [id number] 06:26:00 Test Item Value Reference Range Comments PROTIME (BEAKER) (test qxif=129) 23.3 seconds 11.7-14.7 INR (BEAKER) (test axkb=464) 2.1 <=5.9 RECOMMENDED COUMADIN/WARFARIN INR THERAPY RANGESSTANDARD DOSE: 2.0 - 3.0 Includes: PROPHYLAXIS forvenous thrombosis, systemic embolization; TREATMENT for venous thrombosis and/or pulmonary embolus.HIGH RISK: Target INR is 2.5-3.5 for patients with mechanical heart valves.POCT-GLUCOSE [id number] 22:17:00 Test Item Value Reference Range Comments POC-GLUCOSE METER (BEAKER) 136 mg/dL 70-110 TESTED AT [address] (test pylo=8762) [place] [address] POCT-GLUCOSE [id number] 18:08:00 Test Item Value Reference Range Comments POC-GLUCOSE METER (BEAKER) 126 mg/dL 70-110 TESTED AT [address] (test xqbj=9220) [place] [address] U/S, [id number] 17:47:00Reason for exam:->ascitesFINAL REPORT Indication: Ascites. Technique: Ultrasound guided paracentesis. Findings:Preliminary ultrasound confirms ascites. A safe window was identified in the left lower quadrant. The procedure was explained to the patient and informed consent was signed. The skin was markedand prepped in standard sterile fashion. Lidocaine was used for local anesthesia. A 5 Yemeni needle catheter system was advanced into the peritoneal space. 5500 cc slightly cloudy yellow fluid was taken off. Patient tolerated the procedure well. Impression: Ultrasound guided paracentesis. Signed: Aristeo Xiong [facility] Verified Date/Time: 08/31/2018 17:47:54 Reading Location: [facility] [id number] Ultrasound Reading Room POCT-GLUCOSE [id number] 11:52:00 Test Item Value Reference Range Comments POC-GLUCOSE METER (BEAKER) 151 mg/dL 70-110 TESTED AT [address] (test bska=6824) [facility] [address] POCT-GLUCOSE [id number] 08:19:00 Test Item Value Reference Range Comments POC-GLUCOSE METER (BEAKER) 129 mg/dL 70-110 TESTED AT [address] (test mubn=1538) [facility] [address] [id number] 05:12:00 Test Item Value Reference Range Comments PHOSPHORUS (BEAKER) (test wjni=024) 2.9 mg/dL 2.3-4.7 [id number] 05:12:00 Test Item Value Reference Range Comments MAGNESIUM (BEAKER) (test njlr=577) 2.0 mg/dL 1.6-2.6 COMPREHENSIVE METABOLIC [id number] 05:12:00 Test Item Value Reference Range Comments TOTAL PROTEIN (BEAKER) 5.4 gm/dL 6.0-8.3 (test ethd=484) ALBUMIN (BEAKER) (test 3.2 g/dL 3.5-5.0 owby=7512) ALKALINE PHOSPHATASE 159 U/L 40-150 (BEAKER) (test jsyc=016) BILIRUBIN TOTAL (BEAKER) 1.8 mg/dL 0.2-1.2 (test qgoa=885) SODIUM (BEAKER) (test 125 meq/L 136-145 expn=572) POTASSIUM (BEAKER) (test 4.3 meq/L 3.5-5.1 ifff=601) CHLORIDE (BEAKER) (test 97 meq/L 98-107 jdba=382) CO2 (BEAKER) (test 22 meq/L 22-29 cgel=906) BLOOD UREA NITROGEN 21 mg/dL 7-21 (BEAKER) (test bofj=068) CREATININE (BEAKER) (test 1.34 mg/dL 0.57-1.25 zjll=416) GLUCOSE RANDOM (BEAKER) 113 mg/dL 70-105 (test wuby=820) CALCIUM (BEAKER) (test 8.8 mg/dL 8.4-10.2 knmp=815) AST (SGOT) (BEAKER) (test 22 U/L 5-34 pqxw=665) ALT (SGPT) (BEAKER) (test 11 U/L 6-55 lrfw=502) EGFR (BEAKER) (test 56 mL/min/1.73 sq m ESTIMATED GFR IS NOT eroi=0547) ACCURATE CREATININE CLEARANCE IN PREDICTING GLOMERULAR FILTRATION RATE. ESTIMATED GFR IS NOT APPLICABLE FOR DIALYSIS PATIENTS. BILIRUBIN, [id number] 05:12:00 Test Item Value Reference Range Comments BILIRUBIN DIRECT (BEAKER) (test mpqd=994) 1.2 mg/dL 0.1-0.5 PROTHROMBIN [id number] 04:48:00 Test Item Value Reference Range Comments PROTIME (BEAKER) (test kznc=209) 22.3 seconds 11.7-14.7 INR (BEAKER) (test tigs=675) 2.0 <=5.9 RECOMMENDED COUMADIN/WARFARIN INR THERAPY RANGESSTANDARD DOSE: 2.0 - 3.0 Includes: PROPHYLAXIS forvenous thrombosis, systemic embolization; TREATMENT for venous thrombosis and/or pulmonary embolus.HIGH RISK: Target INR is 2.5-3.5 for patients with mechanical heart valves.CBC W/PLT COUNT & AUTO [id number] 04:33:00 Test Item Value Reference Range Comments WHITE BLOOD CELL COUNT (BEAKER) (test kohl=756) 5.5 K/ L 3.5-10.5 RED BLOOD CELL COUNT (BEAKER) (test jsws=845) 2.58 M/ L 4.63-6.08 HEMOGLOBIN (BEAKER) (test kfmw=909) 7.9 GM/DL 13.7-17.5 HEMATOCRIT (BEAKER) (test kzmg=087) 24.3 % 40.1-51.0 MEAN CORPUSCULAR VOLUME (BEAKER) (test nkya=210) 94.2 fL 79.0-92.2 MEAN CORPUSCULAR HEMOGLOBIN (BEAKER) (test 30.6 pg 25.7-32.2 zlql=116) MEAN CORPUSCULAR HEMOGLOBIN CONC (BEAKER) (test 32.5 GM/DL 32.3-36.5 skhc=940) RED CELL DISTRIBUTION WIDTH (BEAKER) (test 15.0 % 11.6-14.4 mila=524) PLATELET COUNT (BEAKER) (test olbc=906) 57 K/CU MM 150-450 MEAN PLATELET VOLUME (BEAKER) (test vuoh=933) 9.2 fL 9.4-12.4 NUCLEATED RED BLOOD CELLS (BEAKER) (test 0 /100 WBC 0-0 useq=498) NEUTROPHILS RELATIVE PERCENT (BEAKER) (test 70 % liwt=295) LYMPHOCYTES RELATIVE PERCENT (BEAKER) (test 12 % yatf=524) MONOCYTES RELATIVE PERCENT (BEAKER) (test 14 % tunv=332) EOSINOPHILS RELATIVE PERCENT (BEAKER) (test 4 % ffni=984) BASOPHILS RELATIVE PERCENT (BEAKER) (test 0 % cdze=652) NEUTROPHILS ABSOLUTE COUNT (BEAKER) (test 3.85 K/ L 1.78-5.38 mtkd=263) LYMPHOCYTES ABSOLUTE COUNT (BEAKER) (test 0.67 K/ L 1.32-3.57 lhgk=350) MONOCYTES ABSOLUTE COUNT (BEAKER) (test rbjs=355) 0.75 K/ L 0.30-0.82 EOSINOPHILS ABSOLUTE COUNT (BEAKER) (test 0.22 K/ L 0.04-0.54 woht=600) BASOPHILS ABSOLUTE COUNT (BEAKER) (test egvs=527) 0.01 K/ L 0.01-0.08 IMMATURE GRANULOCYTES-RELATIVE PERCENT (BEAKER) 1 % 0-1 (test uhzw=5699) BLOOD [id number] 23:01:00 Test Item Value Reference Range Comments CULTURE (BEAKER) (test vvue=0057) No growth in 5 days POCT-GLUCOSE [id number] 22:15:00 Test Item Value Reference Range Comments POC-GLUCOSE METER (BEAKER) 133 mg/dL 70-110 TESTED AT [address] (test qgqn=6904) [place] [id number] POCT-GLUCOSE [id number] 17:42:00 Test Item Value Reference Range Comments POC-GLUCOSE METER (BEAKER) 139 mg/dL 70-110 TESTED AT [address] (test uigi=0883) [place] [id number] POCT-GLUCOSE [id number] 12:02:00 Test Item Value Reference Range Comments POC-GLUCOSE METER (BEAKER) 152 mg/dL 70-110 TESTED AT [address] (test hkdw=2111) [facility] [address] POCT-GLUCOSE [id number] 09:04:00 Test Item Value Reference Range Comments POC-GLUCOSE METER (BEAKER) 130 mg/dL 70-110 TESTED AT [address] (test snmt=4589) [facility] [address] CALCIUM, [id number] 07:27:00 Test Item Value Reference Range Comments CALCIUM IONIZED (BEAKER) (test yjui=354) 1.10 mmol/L 1.12-1.27 PH, BLOOD (BEAKER) (test uwbo=4403) 7.42 [id number] 06:46:00 Test Item Value Reference Range Comments PHOSPHORUS (BEAKER) (test gdmq=608) 3.0 mg/dL 2.3-4.7 [id number] 06:46:00 Test Item Value Reference Range Comments MAGNESIUM (BEAKER) (test hthg=717) 2.0 mg/dL 1.6-2.6 COMPREHENSIVE METABOLIC [id number] 06:46:00 Test Item Value Reference Range Comments TOTAL PROTEIN (BEAKER) 4.9 gm/dL 6.0-8.3 (test fztb=585) ALBUMIN (BEAKER) (test 3.0 g/dL 3.5-5.0 ocll=4413) ALKALINE PHOSPHATASE 145 U/L 40-150 (BEAKER) (test ywfj=981) BILIRUBIN TOTAL (BEAKER) 1.9 mg/dL 0.2-1.2 (test fjzt=325) SODIUM (BEAKER) (test 127 meq/L 136-145 qwzo=687) POTASSIUM (BEAKER) (test 3.7 meq/L 3.5-5.1 ffct=670) CHLORIDE (BEAKER) (test 99 meq/L 98-107 zklr=742) CO2 (BEAKER) (test 21 meq/L 22-29 lbuj=527) BLOOD UREA NITROGEN 20 mg/dL 7-21 (BEAKER) (test bwix=927) CREATININE (BEAKER) (test 1.21 mg/dL 0.57-1.25 atyj=386) GLUCOSE RANDOM (BEAKER) 108 mg/dL 70-105 (test ixvg=813) CALCIUM (BEAKER) (test 8.9 mg/dL 8.4-10.2 mann=802) AST (SGOT) (BEAKER) (test 22 U/L 5-34 rzeo=295) ALT (SGPT) (BEAKER) (test 9 U/L 6-55 fvnn=403) EGFR (BEAKER) (test 63 mL/min/1.73 sq m ESTIMATED GFR IS NOT linz=4542) ACCURATE CREATININE CLEARANCE IN PREDICTING GLOMERULAR FILTRATION RATE. ESTIMATED GFR IS NOT APPLICABLE FOR DIALYSIS PATIENTS. BASIC METABOLIC [id number] 06:46:00 Test Item Value Reference Range Comments SODIUM (BEAKER) (test 127 meq/L 136-145 raei=231) POTASSIUM (BEAKER) (test 3.7 meq/L 3.5-5.1 axyt=727) CHLORIDE (BEAKER) (test 99 meq/L 98-107 hlpe=324) CO2 (BEAKER) (test 21 meq/L 22-29 fkli=042) BLOOD UREA NITROGEN 20 mg/dL 7-21 (BEAKER) (test ywbq=061) CREATININE (BEAKER) (test 1.21 mg/dL 0.57-1.25 rpnm=460) GLUCOSE RANDOM (BEAKER) 108 mg/dL 70-105 (test pzuv=480) CALCIUM (BEAKER) (test 8.9 mg/dL 8.4-10.2 mado=157) EGFR (BEAKER) (test 63 mL/min/1.73 sq m ESTIMATED GFR IS NOT atgb=0331) ACCURATE CREATININE CLEARANCE IN PREDICTING GLOMERULAR FILTRATION RATE. ESTIMATED GFR IS NOT APPLICABLE FOR DIALYSIS PATIENTS. BILIRUBIN, [id number] 06:46:00 Test Item Value Reference Range Comments BILIRUBIN DIRECT (BEAKER) (test kcte=525) 1.2 mg/dL 0.1-0.5 CBC W/PLT COUNT & AUTO [id number] 06:30:00 Test Item Value Reference Range Comments WHITE BLOOD CELL COUNT (BEAKER) (test jqvz=247) 3.7 K/ L 3.5-10.5 RED BLOOD CELL COUNT (BEAKER) (test llyu=965) 2.35 M/ L 4.63-6.08 HEMOGLOBIN (BEAKER) (test kdvh=916) 7.4 GM/DL 13.7-17.5 HEMATOCRIT (BEAKER) (test wqzr=267) 22.1 % 40.1-51.0 MEAN CORPUSCULAR VOLUME (BEAKER) (test ujuh=795) 94.0 fL 79.0-92.2 MEAN CORPUSCULAR HEMOGLOBIN (BEAKER) (test 31.5 pg 25.7-32.2 ohtg=086) MEAN CORPUSCULAR HEMOGLOBIN CONC (BEAKER) (test 33.5 GM/DL 32.3-36.5 cvcd=211) RED CELL DISTRIBUTION WIDTH (BEAKER) (test 14.8 % 11.6-14.4 ddaj=404) PLATELET COUNT (BEAKER) (test rusk=923) 45 K/CU MM 150-450 MEAN PLATELET VOLUME (BEAKER) (test vwty=776) 8.8 fL 9.4-12.4 NUCLEATED RED BLOOD CELLS (BEAKER) (test 0 /100 WBC 0-0 tikx=892) NEUTROPHILS RELATIVE PERCENT (BEAKER) (test 61 % plwt=708) LYMPHOCYTES RELATIVE PERCENT (BEAKER) (test 14 % sxqm=349) MONOCYTES RELATIVE PERCENT (BEAKER) (test 18 % xvab=765) EOSINOPHILS RELATIVE PERCENT (BEAKER) (test 6 % ssju=063) BASOPHILS RELATIVE PERCENT (BEAKER) (test 0 % fwle=934) NEUTROPHILS ABSOLUTE COUNT (BEAKER) (test 2.25 K/ L 1.78-5.38 wadp=555) LYMPHOCYTES ABSOLUTE COUNT (BEAKER) (test 0.53 K/ L 1.32-3.57 ineh=086) MONOCYTES ABSOLUTE COUNT (BEAKER) (test fegr=319) 0.67 K/ L 0.30-0.82 EOSINOPHILS ABSOLUTE COUNT (BEAKER) (test 0.23 K/ L 0.04-0.54 olmn=304) BASOPHILS ABSOLUTE COUNT (BEAKER) (test rxxf=251) 0.01 K/ L 0.01-0.08 IMMATURE GRANULOCYTES-RELATIVE PERCENT (BEAKER) 1 % 0-1 (test woom=6449) PROTHROMBIN [id number] 06:07:00 Test Item Value Reference Range Comments PROTIME (BEAKER) (test wcbr=647) 21.4 seconds 11.7-14.7 INR (BEAKER) (test wjwu=124) 1.9 <=5.9 RECOMMENDED COUMADIN/WARFARIN INR THERAPY RANGESSTANDARD DOSE: 2.0 - 3.0 Includes: PROPHYLAXIS forvenous thrombosis, systemic embolization; TREATMENT for venous thrombosis and/or pulmonary embolus.HIGH RISK: Target INR is 2.5-3.5 for patients with mechanical heart valves.POCT-GLUCOSE [id number] 23:37:00 Test Item Value Reference Range Comments POC-GLUCOSE METER (BEAKER) 154 mg/dL 70-110 TESTED AT [facility] [address] [facility] (test uade=6309) [facility] [address] BASIC METABOLIC [id number] 20:17:00 Test Item Value Reference Range Comments SODIUM (BEAKER) (test 125 meq/L 136-145 bkdz=184) POTASSIUM (BEAKER) (test 4.0 meq/L 3.5-5.1 yrqy=400) CHLORIDE (BEAKER) (test 94 meq/L 98-107 tvlt=551) CO2 (BEAKER) (test 25 meq/L 22-29 yqjm=431) BLOOD UREA NITROGEN 20 mg/dL 7-21 (BEAKER) (test kogl=183) CREATININE (BEAKER) (test 1.34 mg/dL 0.57-1.25 dbvd=607) GLUCOSE RANDOM (BEAKER) 115 mg/dL 70-105 (test epgi=100) CALCIUM (BEAKER) (test 8.9 mg/dL 8.4-10.2 mtah=830) EGFR (BEAKER) (test 56 mL/min/1.73 sq m ESTIMATED GFR IS NOT rixv=1809) ACCURATE CREATININE CLEARANCE IN PREDICTING GLOMERULAR FILTRATION RATE. ESTIMATED GFR IS NOT APPLICABLE FOR DIALYSIS PATIENTS. POCT-GLUCOSE [id number] 17:59:00 Test Item Value Reference Range Comments POC-GLUCOSE METER (BEAKER) 161 mg/dL 70-110 TESTED AT [address] (test nqoo=7047) [place] [address] BODY FLUID CULTURE + GRAM [id number] 13:31:00 Test Item Value Reference Range Comments CULTURE (BEAKER) (test isrw=3336) No growth GRAM STAIN RESULT (BEAKER) (test No organisms seen esij=8648) GRAM STAIN RESULT (BEAKER) (test No White blood cells seen ayqx=27941) POCT-GLUCOSE [id number] 12:31:00 Test Item Value Reference Range Comments POC-GLUCOSE METER (BEAKER) 114 mg/dL 70-110 TESTED AT [address] (test gdbo=6722) [place] [id number] BASIC METABOLIC [id number] 11:33:00 Test Item Value Reference Range Comments SODIUM (BEAKER) (test 124 meq/L 136-145 wigy=450) POTASSIUM (BEAKER) (test 4.1 meq/L 3.5-5.1 bqbw=193) CHLORIDE (BEAKER) (test 94 meq/L 98-107 okof=176) CO2 (BEAKER) (test 23 meq/L 22-29 tqcb=836) BLOOD UREA NITROGEN 20 mg/dL 7-21 (BEAKER) (test jyeu=765) CREATININE (BEAKER) (test 1.22 mg/dL 0.57-1.25 znbg=917) GLUCOSE RANDOM (BEAKER) 94 mg/dL 70-105 (test pvbe=553) CALCIUM (BEAKER) (test 8.8 mg/dL 8.4-10.2 pfay=124) EGFR (BEAKER) (test 62 mL/min/1.73 sq m ESTIMATED GFR IS NOT gwdv=9756) ACCURATE CREATININE CLEARANCE IN PREDICTING GLOMERULAR FILTRATION RATE. ESTIMATED GFR IS NOT APPLICABLE FOR DIALYSIS PATIENTS. [id number] 09:24:00 Test Item Value Reference Range Comments FERRITIN (BEAKER) (test rprw=498) 1685 ng/mL 5-275 POCT-GLUCOSE [id number] 07:59:00 Test Item Value Reference Range Comments POC-GLUCOSE METER (BEAKER) 225 mg/dL 70-110 TESTED AT [facility] [address] [facility] (test xfse=8771) [facility] [address] IRON, TIBC, % SAT. (WITHOUT FERRITIN)2018-08-29 07:54:00 Test Item Value Reference Range Comments IRON (BEAKER) (test pjhp=735) 98 ug/dL 40-160 TOTAL IRON BINDING CAPACITY (BEAKER) (test 90 ug/dL 250-450 tgjw=562) IRON % SATURATION (2) (BEAKER) (test fpnv=5873) 109 % 20-55 CALCIUM, [id number] 07:13:00 Test Item Value Reference Range Comments CALCIUM IONIZED (BEAKER) (test momj=191) 1.10 mmol/L 1.12-1.27 PH, BLOOD (BEAKER) (test lfha=2974) 7.37 [id number] 06:32:00 Test Item Value Reference Range Comments PHOSPHORUS (BEAKER) (test fnip=048) 2.6 mg/dL 2.3-4.7 [id number] 06:32:00 Test Item Value Reference Range Comments MAGNESIUM (BEAKER) (test cuyy=922) 1.8 mg/dL 1.6-2.6 COMPREHENSIVE METABOLIC [id number] 06:32:00 Test Item Value Reference Range Comments TOTAL PROTEIN (BEAKER) 5.0 gm/dL 6.0-8.3 (test kizf=104) ALBUMIN (BEAKER) (test 3.2 g/dL 3.5-5.0 igit=1708) ALKALINE PHOSPHATASE 138 U/L 40-150 (BEAKER) (test eqhm=435) BILIRUBIN TOTAL (BEAKER) 2.1 mg/dL 0.2-1.2 (test wrnw=411) SODIUM (BEAKER) (test 126 meq/L 136-145 jjrw=901) POTASSIUM (BEAKER) (test 4.0 meq/L 3.5-5.1 wfwn=629) CHLORIDE (BEAKER) (test 95 meq/L 98-107 scao=634) CO2 (BEAKER) (test 23 meq/L 22-29 gdki=654) BLOOD UREA NITROGEN 21 mg/dL 7-21 (BEAKER) (test vhqi=258) CREATININE (BEAKER) (test 1.15 mg/dL 0.57-1.25 fuzr=802) GLUCOSE RANDOM (BEAKER) 110 mg/dL 70-105 (test fvqm=925) CALCIUM (BEAKER) (test 8.8 mg/dL 8.4-10.2 hnpv=904) AST (SGOT) (BEAKER) (test 22 U/L 5-34 tyli=309) ALT (SGPT) (BEAKER) (test 11 U/L 6-55 cmmu=502) EGFR (BEAKER) (test 67 mL/min/1.73 sq m ESTIMATED GFR IS NOT xpty=1145) ACCURATE CREATININE CLEARANCE IN PREDICTING GLOMERULAR FILTRATION RATE. ESTIMATED GFR IS NOT APPLICABLE FOR DIALYSIS PATIENTS. BASIC METABOLIC [id number] 06:32:00 Test Item Value Reference Range Comments SODIUM (BEAKER) (test 126 meq/L 136-145 vten=034) POTASSIUM (BEAKER) (test 4.0 meq/L 3.5-5.1 ogee=215) CHLORIDE (BEAKER) (test 95 meq/L 98-107 kjyh=256) CO2 (BEAKER) (test 23 meq/L 22-29 upjn=552) BLOOD UREA NITROGEN 21 mg/dL 7-21 (BEAKER) (test tyur=488) CREATININE (BEAKER) (test 1.15 mg/dL 0.57-1.25 vjuk=368) GLUCOSE RANDOM (BEAKER) 110 mg/dL 70-105 (test lsiw=889) CALCIUM (BEAKER) (test 8.8 mg/dL 8.4-10.2 dyio=375) EGFR (BEAKER) (test 67 mL/min/1.73 sq m ESTIMATED GFR IS NOT psid=1526) ACCURATE CREATININE CLEARANCE IN PREDICTING GLOMERULAR FILTRATION RATE. ESTIMATED GFR IS NOT APPLICABLE FOR DIALYSIS PATIENTS. BILIRUBIN, [id number] 06:32:00 Test Item Value Reference Range Comments BILIRUBIN DIRECT (BEAKER) (test kess=282) 1.4 mg/dL 0.1-0.5 PROTHROMBIN [id number] 05:44:00 Test Item Value Reference Range Comments PROTIME (BEAKER) (test nikn=258) 20.9 seconds 11.7-14.7 INR (BEAKER) (test dbcj=193) 1.8 <=5.9 RECOMMENDED COUMADIN/WARFARIN INR THERAPY RANGESSTANDARD DOSE: 2.0 - 3.0 Includes: PROPHYLAXIS forvenous thrombosis, systemic embolization; TREATMENT for venous thrombosis and/or pulmonary embolus.HIGH RISK: Target INR is 2.5-3.5 for patients with mechanical heart valves.CBC W/PLT COUNT & AUTO [id number] 05:43:00 Test Item Value Reference Range Comments WHITE BLOOD CELL COUNT (BEAKER) (test eopf=985) 4.0 K/ L 3.5-10.5 RED BLOOD CELL COUNT (BEAKER) (test ofzy=777) 2.30 M/ L 4.63-6.08 HEMOGLOBIN (BEAKER) (test gpoh=024) 7.5 GM/DL 13.7-17.5 HEMATOCRIT (BEAKER) (test czer=773) 22.0 % 40.1-51.0 MEAN CORPUSCULAR VOLUME (BEAKER) (test hwql=588) 95.7 fL 79.0-92.2 MEAN CORPUSCULAR HEMOGLOBIN (BEAKER) (test 32.6 pg 25.7-32.2 jspi=503) MEAN CORPUSCULAR HEMOGLOBIN CONC (BEAKER) (test 34.1 GM/DL 32.3-36.5 mzdg=131) RED CELL DISTRIBUTION WIDTH (BEAKER) (test 14.8 % 11.6-14.4 imcx=425) PLATELET COUNT (BEAKER) (test wicz=539) 51 K/CU MM 150-450 MEAN PLATELET VOLUME (BEAKER) (test nkym=643) 8.8 fL 9.4-12.4 NUCLEATED RED BLOOD CELLS (BEAKER) (test 0 /100 WBC 0-0 ailb=464) NEUTROPHILS RELATIVE PERCENT (BEAKER) (test 61 % pgst=971) LYMPHOCYTES RELATIVE PERCENT (BEAKER) (test 12 % zhpp=284) MONOCYTES RELATIVE PERCENT (BEAKER) (test 19 % hnmh=328) EOSINOPHILS RELATIVE PERCENT (BEAKER) (test 7 % izdn=368) BASOPHILS RELATIVE PERCENT (BEAKER) (test 0 % uqmw=910) NEUTROPHILS ABSOLUTE COUNT (BEAKER) (test 2.43 K/ L 1.78-5.38 qdxw=163) LYMPHOCYTES ABSOLUTE COUNT (BEAKER) (test 0.49 K/ L 1.32-3.57 yrux=880) MONOCYTES ABSOLUTE COUNT (BEAKER) (test uojo=016) 0.75 K/ L 0.30-0.82 EOSINOPHILS ABSOLUTE COUNT (BEAKER) (test 0.29 K/ L 0.04-0.54 dcld=706) BASOPHILS ABSOLUTE COUNT (BEAKER) (test owpg=074) 0.00 K/ L 0.01-0.08 IMMATURE GRANULOCYTES-RELATIVE PERCENT (BEAKER) 1 % 0-1 (test ddoy=6005) POCT-GLUCOSE [id number] 22:23:00 Test Item Value Reference Range Comments POC-GLUCOSE METER (BEAKER) 166 mg/dL 70-110 TESTED AT [address] (test vymj=0304) [place] [id number] POCT-GLUCOSE [id number] 16:12:00 Test Item Value Reference Range Comments POC-GLUCOSE METER (BEAKER) 110 mg/dL 70-110 TESTED AT [address] (test bhvx=7218) [place] [address] PTH, [id number] 15:57:00 Test Item Value Reference Range Comments PARATHYROID HORMONE INTACT (BEAKER) (test 26.2 pg/mL 8.5-72.5 efgp=267) GAMMA GLUTAMYL TRANSFERASE ([id number] 15:51:00 Test Item Value Reference Range Comments GAMMA GLUTAMYL TRANSFERASE (BEAKER) (test kccs=679) 11 U/L 9-64 BASIC METABOLIC [id number] 15:49:00 Test Item Value Reference Range Comments SODIUM (BEAKER) (test 127 meq/L 136-145 swbc=806) POTASSIUM (BEAKER) (test 3.6 meq/L 3.5-5.1 nfsh=152) CHLORIDE (BEAKER) (test 97 meq/L 98-107 ksfu=577) CO2 (BEAKER) (test 23 meq/L 22-29 jhtu=064) BLOOD UREA NITROGEN 20 mg/dL 7-21 (BEAKER) (test wttb=693) CREATININE (BEAKER) (test 1.19 mg/dL 0.57-1.25 cvib=022) GLUCOSE RANDOM (BEAKER) 123 mg/dL 70-105 (test qsnd=891) CALCIUM (BEAKER) (test 8.6 mg/dL 8.4-10.2 dtlv=626) EGFR (BEAKER) (test 64 mL/min/1.73 sq m ESTIMATED GFR IS NOT alwz=5831) ACCURATE CREATININE CLEARANCE IN PREDICTING GLOMERULAR FILTRATION RATE. ESTIMATED GFR IS NOT APPLICABLE FOR DIALYSIS PATIENTS. VITAMIN D, [id number] 15:24:00 Test Item Value Reference Range Comments VITAMIN D 25-OH (BEAKER) (test dpet=7760) 11.2 ng/mL 6.6-49.9 Effective 08/06/2017: Reference Range ChangeNew: 6.6-49.9 ng/mL Previous: 13.0 -47.8 ng/mLRecommended Vitamin D Target Range: 30.0-40.0 ng/mLPOCT-GLUCOSE [id number] 12:35:00 Test Item Value Reference Range Comments POC-GLUCOSE METER (BEAKER) 138 mg/dL 70-110 TESTED AT [facility] [address] [facility] (test vkrg=6932) [facility] [address] BASIC METABOLIC [id number] 09:59:00 Test Item Value Reference Range Comments SODIUM (BEAKER) (test 130 meq/L 136-145 mumd=371) POTASSIUM (BEAKER) (test 4.1 meq/L 3.5-5.1 kdkf=013) CHLORIDE (BEAKER) (test 99 meq/L 98-107 clan=347) CO2 (BEAKER) (test 24 meq/L 22-29 gjsg=749) BLOOD UREA NITROGEN 22 mg/dL 7-21 (BEAKER) (test wbov=804) CREATININE (BEAKER) (test 1.31 mg/dL 0.57-1.25 wezh=206) GLUCOSE RANDOM (BEAKER) 121 mg/dL 70-105 (test iqkm=538) CALCIUM (BEAKER) (test 9.4 mg/dL 8.4-10.2 upwq=779) EGFR (BEAKER) (test 57 mL/min/1.73 sq m ESTIMATED GFR IS NOT lolc=3143) ACCURATE CREATININE CLEARANCE IN PREDICTING GLOMERULAR FILTRATION RATE. ESTIMATED GFR IS NOT APPLICABLE FOR DIALYSIS PATIENTS. POCT-GLUCOSE [id number] 08:17:00 Test Item Value Reference Range Comments POC-GLUCOSE METER (BEAKER) 131 mg/dL 70-110 TESTED AT [facility] [address] [facility] (test zqtc=1028) [facility] [address] CALCIUM, [id number] 06:01:00 Test Item Value Reference Range Comments CALCIUM IONIZED (BEAKER) (test zngz=046) 1.06 mmol/L 1.12-1.27 PH, BLOOD (BEAKER) (test elxj=3443) 7.42 [id number] 05:52:00 Test Item Value Reference Range Comments PHOSPHORUS (BEAKER) (test vytu=280) 3.1 mg/dL 2.3-4.7 [id number] 05:52:00 Test Item Value Reference Range Comments MAGNESIUM (BEAKER) (test qqti=759) 2.3 mg/dL 1.6-2.6 BASIC METABOLIC [id number] 05:52:00 Test Item Value Reference Range Comments SODIUM (BEAKER) (test 130 meq/L 136-145 rojy=959) POTASSIUM (BEAKER) (test 3.8 meq/L 3.5-5.1 uqba=200) CHLORIDE (BEAKER) (test 98 meq/L 98-107 zoyf=709) CO2 (BEAKER) (test 22 meq/L 22-29 pzae=889) BLOOD UREA NITROGEN 22 mg/dL 7-21 (BEAKER) (test exic=466) CREATININE (BEAKER) (test 1.37 mg/dL 0.57-1.25 hkob=382) GLUCOSE RANDOM (BEAKER) 118 mg/dL 70-105 (test eyjs=616) CALCIUM (BEAKER) (test 9.6 mg/dL 8.4-10.2 kxpy=895) EGFR (BEAKER) (test 54 mL/min/1.73 sq m ESTIMATED GFR IS NOT aoxo=2640) ACCURATE CREATININE CLEARANCE IN PREDICTING GLOMERULAR FILTRATION RATE. ESTIMATED GFR IS NOT APPLICABLE FOR DIALYSIS PATIENTS. Specimen slightly ictericCOMPREHENSIVE METABOLIC [id number] 05:52:00 Test Item Value Reference Range Comments TOTAL PROTEIN (BEAKER) 5.6 gm/dL 6.0-8.3 (test imce=385) ALBUMIN (BEAKER) (test 3.6 g/dL 3.5-5.0 htpw=7613) ALKALINE PHOSPHATASE 146 U/L 40-150 (BEAKER) (test oeyn=118) BILIRUBIN TOTAL (BEAKER) 2.5 mg/dL 0.2-1.2 (test tdcn=503) SODIUM (BEAKER) (test 130 meq/L 136-145 oyyj=530) POTASSIUM (BEAKER) (test 3.8 meq/L 3.5-5.1 rsrv=477) CHLORIDE (BEAKER) (test 98 meq/L 98-107 beiy=549) CO2 (BEAKER) (test 22 meq/L 22-29 jfrb=996) BLOOD UREA NITROGEN 22 mg/dL 7-21 (BEAKER) (test jghn=328) CREATININE (BEAKER) (test 1.37 mg/dL 0.57-1.25 zzdw=888) GLUCOSE RANDOM (BEAKER) 118 mg/dL 70-105 (test hjmr=523) CALCIUM (BEAKER) (test 9.6 mg/dL 8.4-10.2 ybud=525) AST (SGOT) (BEAKER) (test 25 U/L 5-34 fbiy=137) ALT (SGPT) (BEAKER) (test 10 U/L 6-55 uhvj=726) EGFR (BEAKER) (test 54 mL/min/1.73 sq m ESTIMATED GFR IS NOT elpf=3360) ACCURATE CREATININE CLEARANCE IN PREDICTING GLOMERULAR FILTRATION RATE. ESTIMATED GFR IS NOT APPLICABLE FOR DIALYSIS PATIENTS. Specimen slightly ictericBILIRUBIN, [id number] 05:52:00 Test Item Value Reference Range Comments BILIRUBIN DIRECT (BEAKER) (test lrkv=603) 1.6 mg/dL 0.1-0.5 PROTHROMBIN [id number] 05:41:00 Test Item Value Reference Range Comments PROTIME (BEAKER) (test jvjx=743) 21.3 seconds 11.7-14.7 INR (BEAKER) (test uecr=933) 1.8 <=5.9 RECOMMENDED COUMADIN/WARFARIN INR THERAPY RANGESSTANDARD DOSE: 2.0 - 3.0 Includes: PROPHYLAXIS forvenous thrombosis, systemic embolization; TREATMENT for venous thrombosis and/or pulmonary embolus.HIGH RISK: Target INR is 2.5-3.5 for patients with mechanical heart valves.CBC W/PLT COUNT & AUTO [id number] 05:32:00 Test Item Value Reference Range Comments WHITE BLOOD CELL COUNT (BEAKER) (test pked=959) 5.0 K/ L 3.5-10.5 RED BLOOD CELL COUNT (BEAKER) (test dcwv=964) 2.53 M/ L 4.63-6.08 HEMOGLOBIN (BEAKER) (test hrvc=741) 8.1 GM/DL 13.7-17.5 HEMATOCRIT (BEAKER) (test wctu=047) 23.6 % 40.1-51.0 MEAN CORPUSCULAR VOLUME (BEAKER) (test ntya=178) 93.3 fL 79.0-92.2 MEAN CORPUSCULAR HEMOGLOBIN (BEAKER) (test 32.0 pg 25.7-32.2 jvud=006) MEAN CORPUSCULAR HEMOGLOBIN CONC (BEAKER) (test 34.3 GM/DL 32.3-36.5 kuyh=742) RED CELL DISTRIBUTION WIDTH (BEAKER) (test 14.6 % 11.6-14.4 bgok=612) PLATELET COUNT (BEAKER) (test hdyf=832) 73 K/CU MM 150-450 MEAN PLATELET VOLUME (BEAKER) (test knjs=818) 8.8 fL 9.4-12.4 NUCLEATED RED BLOOD CELLS (BEAKER) (test 0 /100 WBC 0-0 rcpw=918) NEUTROPHILS RELATIVE PERCENT (BEAKER) (test 71 % ehqt=236) LYMPHOCYTES RELATIVE PERCENT (BEAKER) (test 10 % dbcn=727) MONOCYTES RELATIVE PERCENT (BEAKER) (test 16 % gvew=514) EOSINOPHILS RELATIVE PERCENT (BEAKER) (test 3 % powy=661) BASOPHILS RELATIVE PERCENT (BEAKER) (test 0 % wdna=298) NEUTROPHILS ABSOLUTE COUNT (BEAKER) (test 3.56 K/ L 1.78-5.38 rhav=822) LYMPHOCYTES ABSOLUTE COUNT (BEAKER) (test 0.48 K/ L 1.32-3.57 gcsi=430) MONOCYTES ABSOLUTE COUNT (BEAKER) (test wiev=816) 0.80 K/ L 0.30-0.82 EOSINOPHILS ABSOLUTE COUNT (BEAKER) (test 0.13 K/ L 0.04-0.54 fdox=766) BASOPHILS ABSOLUTE COUNT (BEAKER) (test ukhq=455) 0.01 K/ L 0.01-0.08 IMMATURE GRANULOCYTES-RELATIVE PERCENT (BEAKER) 1 % 0-1 (test esqn=5716) POCT-GLUCOSE [id number] 21:24:00 Test Item Value Reference Range Comments POC-GLUCOSE METER (BEAKER) 137 mg/dL 70-110 TESTED AT [address] (test ztfq=5883) [place] [address] POCT-GLUCOSE [id number] 17:52:00 Test Item Value Reference Range Comments POC-GLUCOSE METER (BEAKER) 166 mg/dL 70-110 TESTED AT [address] (test sile=0815) [place] [address] BASIC METABOLIC [id number] 17:48:00 Test Item Value Reference Range Comments SODIUM (BEAKER) (test 128 meq/L 136-145 jngl=335) POTASSIUM (BEAKER) (test 4.0 meq/L 3.5-5.1 nxfv=728) CHLORIDE (BEAKER) (test 97 meq/L 98-107 abia=817) CO2 (BEAKER) (test 23 meq/L 22-29 emds=972) BLOOD UREA NITROGEN 24 mg/dL 7-21 (BEAKER) (test amie=650) CREATININE (BEAKER) (test 1.25 mg/dL 0.57-1.25 wpzu=125) GLUCOSE RANDOM (BEAKER) 123 mg/dL 70-105 (test seur=298) CALCIUM (BEAKER) (test 8.9 mg/dL 8.4-10.2 mdmy=371) EGFR (BEAKER) (test 60 mL/min/1.73 sq m ESTIMATED GFR IS NOT kegm=6669) ACCURATE CREATININE CLEARANCE IN PREDICTING GLOMERULAR FILTRATION RATE. ESTIMATED GFR IS NOT APPLICABLE FOR DIALYSIS PATIENTS. POCT-GLUCOSE [id number] 12:18:00 Test Item Value Reference Range Comments POC-GLUCOSE METER (BEAKER) 152 mg/dL 70-110 TESTED AT [address] (test dqif=4033) [facility] [address] POCT-GLUCOSE [id number] 09:31:00 Test Item Value Reference Range Comments POC-GLUCOSE METER (BEAKER) 142 mg/dL 70-110 TESTED AT [address] (test qmkk=7177) [facility] [address] BASIC METABOLIC [id number] 09:03:00 Test Item Value Reference Range Comments SODIUM (BEAKER) (test 125 meq/L 136-145 bvsc=777) POTASSIUM (BEAKER) (test 5.1 meq/L 3.5-5.1 Specimen slightly hckq=549) hemolyzed CHLORIDE (BEAKER) (test 95 meq/L 98-107 uuja=842) CO2 (BEAKER) (test 23 meq/L 22-29 itbm=647) BLOOD UREA NITROGEN 26 mg/dL 7-21 (BEAKER) (test dcnn=437) CREATININE (BEAKER) (test 1.25 mg/dL 0.57-1.25 Specimen slightly riwm=028) hemolyzed GLUCOSE RANDOM (BEAKER) 99 mg/dL 70-105 (test tvuy=237) CALCIUM (BEAKER) (test 9.0 mg/dL 8.4-10.2 tjxj=758) EGFR (BEAKER) (test 60 mL/min/1.73 sq m ESTIMATED GFR IS NOT zdds=0080) ACCURATE CREATININE CLEARANCE IN PREDICTING GLOMERULAR FILTRATION RATE. ESTIMATED GFR IS NOT APPLICABLE FOR DIALYSIS PATIENTS. POCT-GLUCOSE [id number] 08:38:00 Test Item Value Reference Range Comments POC-GLUCOSE METER (BEAKER) 171 mg/dL 70-110 TESTED AT [address] (test ocqa=3326) [facility] [address] [id number] 05:30:00 Test Item Value Reference Range Comments PHOSPHORUS (BEAKER) (test gbts=952) 2.9 mg/dL 2.3-4.7 [id number] 05:30:00 Test Item Value Reference Range Comments MAGNESIUM (BEAKER) (test yyar=988) 2.2 mg/dL 1.6-2.6 COMPREHENSIVE METABOLIC [id number] 05:30:00 Test Item Value Reference Range Comments TOTAL PROTEIN (BEAKER) 5.2 gm/dL 6.0-8.3 (test toph=641) ALBUMIN (BEAKER) (test 3.4 g/dL 3.5-5.0 mdvz=5700) ALKALINE PHOSPHATASE 134 U/L 40-150 (BEAKER) (test ribo=178) BILIRUBIN TOTAL (BEAKER) 2.3 mg/dL 0.2-1.2 (test kzcg=821) SODIUM (BEAKER) (test 124 meq/L 136-145 duft=813) POTASSIUM (BEAKER) (test 4.9 meq/L 3.5-5.1 tngz=768) CHLORIDE (BEAKER) (test 94 meq/L 98-107 abmf=435) CO2 (BEAKER) (test 24 meq/L 22-29 ittv=462) BLOOD UREA NITROGEN 27 mg/dL 7-21 (BEAKER) (test nodf=488) CREATININE (BEAKER) (test 1.27 mg/dL 0.57-1.25 ibiz=796) GLUCOSE RANDOM (BEAKER) 122 mg/dL 70-105 (test vwmq=830) CALCIUM (BEAKER) (test 9.2 mg/dL 8.4-10.2 urrz=658) AST (SGOT) (BEAKER) (test 24 U/L 5-34 zuxa=502) ALT (SGPT) (BEAKER) (test 10 U/L 6-55 fbfx=515) EGFR (BEAKER) (test 59 mL/min/1.73 sq m ESTIMATED GFR IS NOT tnxi=7586) ACCURATE CREATININE CLEARANCE IN PREDICTING GLOMERULAR FILTRATION RATE. ESTIMATED GFR IS NOT APPLICABLE FOR DIALYSIS PATIENTS. BILIRUBIN, [id number] 05:30:00 Test Item Value Reference Range Comments BILIRUBIN DIRECT (BEAKER) (test rpfq=260) 1.5 mg/dL 0.1-0.5 PROTHROMBIN [id number] 05:09:00 Test Item Value Reference Range Comments PROTIME (BEAKER) (test vmqm=705) 22.3 seconds 11.7-14.7 INR (BEAKER) (test ojjj=110) 2.0 <=5.9 RECOMMENDED COUMADIN/WARFARIN INR THERAPY RANGESSTANDARD DOSE: 2.0 - 3.0 Includes: PROPHYLAXIS forvenous thrombosis, systemic embolization; TREATMENT for venous thrombosis and/or pulmonary embolus.HIGH RISK: Target INR is 2.5-3.5 for patients with mechanical heart valves.CBC W/PLT COUNT & AUTO [id number] 04:59:00 Test Item Value Reference Range Comments WHITE BLOOD CELL COUNT (BEAKER) (test opfu=210) 5.0 K/ L 3.5-10.5 RED BLOOD CELL COUNT (BEAKER) (test faxv=264) 2.24 M/ L 4.63-6.08 HEMOGLOBIN (BEAKER) (test byqc=199) 7.2 GM/DL 13.7-17.5 HEMATOCRIT (BEAKER) (test htge=374) 20.8 % 40.1-51.0 MEAN CORPUSCULAR VOLUME (BEAKER) (test ugjg=222) 92.9 fL 79.0-92.2 MEAN CORPUSCULAR HEMOGLOBIN (BEAKER) (test 32.1 pg 25.7-32.2 uoyx=407) MEAN CORPUSCULAR HEMOGLOBIN CONC (BEAKER) (test 34.6 GM/DL 32.3-36.5 rubj=379) RED CELL DISTRIBUTION WIDTH (BEAKER) (test 14.2 % 11.6-14.4 wtct=383) PLATELET COUNT (BEAKER) (test kqju=078) 56 K/CU MM 150-450 MEAN PLATELET VOLUME (BEAKER) (test qbdo=255) 8.9 fL 9.4-12.4 NUCLEATED RED BLOOD CELLS (BEAKER) (test 0 /100 WBC 0-0 njty=763) NEUTROPHILS RELATIVE PERCENT (BEAKER) (test 82 % lhaz=793) LYMPHOCYTES RELATIVE PERCENT (BEAKER) (test 5 % omld=732) MONOCYTES RELATIVE PERCENT (BEAKER) (test 12 % gcil=374) EOSINOPHILS RELATIVE PERCENT (BEAKER) (test 0 % juvn=394) BASOPHILS RELATIVE PERCENT (BEAKER) (test 0 % clge=971) NEUTROPHILS ABSOLUTE COUNT (BEAKER) (test 4.12 K/ L 1.78-5.38 sycf=826) LYMPHOCYTES ABSOLUTE COUNT (BEAKER) (test 0.26 K/ L 1.32-3.57 gyah=261) MONOCYTES ABSOLUTE COUNT (BEAKER) (test wkqr=831) 0.59 K/ L 0.30-0.82 EOSINOPHILS ABSOLUTE COUNT (BEAKER) (test 0.00 K/ L 0.04-0.54 wwah=875) BASOPHILS ABSOLUTE COUNT (BEAKER) (test onnf=849) 0.00 K/ L 0.01-0.08 IMMATURE GRANULOCYTES-RELATIVE PERCENT (BEAKER) 1 % 0-1 (test bwiy=2716) CALCIUM, [id number] 04:57:00 Test Item Value Reference Range Comments CALCIUM IONIZED (BEAKER) (test anap=368) 1.14 mmol/L 1.12-1.27 PH, BLOOD (BEAKER) (test pqnf=8467) 7.39 POCT-GLUCOSE [id number] 00:41:00 Test Item Value Reference Range Comments POC-GLUCOSE METER (BEAKER) 186 mg/dL 70-110 TESTED AT [facility] [address] [facility] (test yfun=5694) [facility] [address] CORTISOL,60 [id number] 23:00:00 Test Item Value Reference Range Comments CORTISOL BASELINE NETWORKED (BEAKER) (test 7.5 mcg/dL kzze=2044) CORTISOL 30 MINUTE NETWORKED (BEAKER) (test 14.1 mcg/dL tfxr=5358) CORTISOL, 60 MINUTE (BEAKER) (test mjag=2546) 18.9 ug/dL ACTH STIMULATION TEST INTERPRETATION GUIDELINES(Synonyms: [...] serum cortisollevel 60 minutes after cosyntropin administration.CORTISOL,30 [id number] 22:05:00 Test Item Value Reference Range Comments CORTISOL BASELINE NETWORKED (YouxinpaiAKER) (test 7.5 mcg/dL tdnb=9148) CORTISOL, 30 MINUTE (BEAKER) (test mtnu=8815) 14.1 ug/dL ACTH STIMULATION TEST INTERPRETATION GUIDELINES(Synonyms: [...] cortisollevel 60 minutes after cosyntropin administration.BASIC METABOLIC [id number] 21:42:00 Test Item Value Reference Range Comments SODIUM (BEAKER) (test 123 meq/L 136-145 qwfo=466) POTASSIUM (BEAKER) (test 4.3 meq/L 3.5-5.1 pntd=464) CHLORIDE (BEAKER) (test 93 meq/L 98-107 svvy=359) CO2 (BEAKER) (test 24 meq/L 22-29 cmpk=733) BLOOD UREA NITROGEN 29 mg/dL 7-21 (BEAKER) (test jwhl=389) CREATININE (BEAKER) (test 1.38 mg/dL 0.57-1.25 zjxr=663) GLUCOSE RANDOM (BEAKER) 109 mg/dL 70-105 (test eoac=364) CALCIUM (BEAKER) (test 9.2 mg/dL 8.4-10.2 eqwn=681) EGFR (BEAKER) (test 54 mL/min/1.73 sq m ESTIMATED GFR IS NOT zspn=9481) ACCURATE CREATININE CLEARANCE IN PREDICTING GLOMERULAR FILTRATION RATE. ESTIMATED GFR IS NOT APPLICABLE FOR DIALYSIS PATIENTS. Call results to Dr Almendarez METABOLIC [id number] 18:03:00 Test Item Value Reference Range Comments SODIUM (BEAKER) (test 124 meq/L 136-145 xlft=619) POTASSIUM (BEAKER) (test 4.6 meq/L 3.5-5.1 tgkv=380) CHLORIDE (BEAKER) (test 93 meq/L 98-107 gudh=750) CO2 (BEAKER) (test 25 meq/L 22-29 tdpu=345) BLOOD UREA NITROGEN 32 mg/dL 7-21 (BEAKER) (test pgla=619) CREATININE (BEAKER) (test 1.40 mg/dL 0.57-1.25 ruff=940) GLUCOSE RANDOM (BEAKER) 94 mg/dL 70-105 (test cvct=327) CALCIUM (BEAKER) (test 9.0 mg/dL 8.4-10.2 cikm=222) EGFR (BEAKER) (test 53 mL/min/1.73 sq m ESTIMATED GFR IS NOT beux=1613) ACCURATE CREATININE CLEARANCE IN PREDICTING GLOMERULAR FILTRATION RATE. ESTIMATED GFR IS NOT APPLICABLE FOR DIALYSIS PATIENTS. BODY FLUID CELL COUNT WITH [id number] 13:54:00 Test Item Value Reference Range Comments APPEARANCE FLUID (BEAKER) (test wkus=286) Slightly Hazy Clear COLOR FLUID (BEAKER) (test pojl=442) Yellow Colorless, Straw RBC FLUID (BEAKER) (test layq=165) 1000 /cu mm <=1 ADJUSTED WBC FLUID (BEAKER) (test blng=9484) 54 /cu mm <=5 LINING CELLS (BEAKER) (test uwrg=8650) 2 /cu mm <=1 NEUTROPHILS FLUID (BEAKER) (test ysld=8907) 6 % LYMPHS FLUID (BEAKER) (test baxm=591) 25 % MONO/MACROPHAGE FLUID (BEAKER) (test 69 % kuec=898) EOSINOPHILS FLUID (BEAKER) (test mkuj=280) 0 % BASO FLUID (BEAKER) (test bcas=811) 0 % CONTAINER BODY FLUID (BEAKER) (test Sterile Vial hsvd=5299) ALBUMIN, BODY [id number] 13:45:00 Test Item Value Reference Range Comments ALBUMIN FLUID (BEAKER) (test sdoh=147) 0.8 gm/dL Reference Range: No Normals Assay performance has not been validated for this type of specimen.LACTATE DEHYDROGENASE (LDH), BODY [id number] 13:13:00 Test Item Value Reference Range Comments LACTATE DEHYDROGENASE FLUID (BEAKER) (test jzid=622) < U/L Absence of reference range indicates that normals have not been defined.Assay performance has not been validated for this type of specimen.GLUCOSE, BODY [id number] 13:13:00 Test Item Value Reference Range Comments GLUCOSE, BODY FLUID (BEAKER) (test jdvq=8849) 82 mg/dL Absence of reference range indicates that normals have not been defined.Assay performance has not been validated for this type of specimen.TRIGLYCERIDES, BODY [id number] 13:10:00 Test Item Value Reference Range Comments TRIGLYCERIDES FLUID (BEAKER) (test vccd=068) 39 mg/dL Reference Range: No Normals Assay performance has not been validated for this type of specimen.PROTEIN, BODY [id number] 13:09:00 Test Item Value Reference Range Comments PROTEIN FLUID (BEAKER) (test kgpk=527) 1.2 g/dL Absence of reference range indicates that normals have not been defined.Assay performance has not been validated for this type of specimen.CORTISOL, [id number] 12:52:00 Test Item Value Reference Range Comments CORTISOL, BASELINE (BEAKER) (test rsrd=3523) 7.5 ug/dL ACTH STIMULATION TEST INTERPRETATION GUIDELINES(Synonyms: [...] cortisollevel 60 minutes after cosyntropin administration.BASIC METABOLIC [id number] 12:40:00 Test Item Value Reference Range Comments SODIUM (BEAKER) (test 119 meq/L 136-145 oket=457) POTASSIUM (BEAKER) (test 5.2 meq/L 3.5-5.1 nufj=122) CHLORIDE (BEAKER) (test 90 meq/L 98-107 ftgs=725) CO2 (BEAKER) (test 23 meq/L 22-29 yivz=908) BLOOD UREA NITROGEN 34 mg/dL 7-21 (BEAKER) (test mjpv=284) CREATININE (BEAKER) (test 1.46 mg/dL 0.57-1.25 uhfs=194) GLUCOSE RANDOM (BEAKER) 84 mg/dL 70-105 (test dvpe=985) CALCIUM (BEAKER) (test 8.8 mg/dL 8.4-10.2 jrkn=707) EGFR (BEAKER) (test 51 mL/min/1.73 sq m ESTIMATED GFR IS NOT xros=2240) ACCURATE CREATININE CLEARANCE IN PREDICTING GLOMERULAR FILTRATION RATE. ESTIMATED GFR IS NOT APPLICABLE FOR DIALYSIS PATIENTS. Specimen slightly ictericRAD, CHEST, 1 VIEW, NON [id number] 11:50:00Reason for exam:->coughShould this be performed at the bedside?->YesFINAL REPORT Chest one view compared to May 12, 2018 Discussion: There is diffuse interstitial prominence. No effusion or pneumothorax. Heart size normal. IMPRESSIONS: No changeSigned: Karina Pugheport Verified Date/ Time: 08/26/2018 11:50:19 Reading Location: [facility] Reading Room BASIC METABOLIC [id number] 09:35:00 Test Item Value Reference Range Comments SODIUM (BEAKER) (test 119 meq/L 136-145 zidf=478) POTASSIUM (BEAKER) (test 4.9 meq/L 3.5-5.1 dndc=485) CHLORIDE (BEAKER) (test 89 meq/L 98-107 clgk=808) CO2 (BEAKER) (test 23 meq/L 22-29 tqbh=696) BLOOD UREA NITROGEN 36 mg/dL 7-21 (BEAKER) (test lekd=995) CREATININE (BEAKER) (test 1.46 mg/dL 0.57-1.25 ydzc=486) GLUCOSE RANDOM (BEAKER) 83 mg/dL 70-105 (test pzaf=186) CALCIUM (BEAKER) (test 8.8 mg/dL 8.4-10.2 dfuj=608) EGFR (BEAKER) (test 51 mL/min/1.73 sq m ESTIMATED GFR IS NOT cpdz=0675) ACCURATE CREATININE CLEARANCE IN PREDICTING GLOMERULAR FILTRATION RATE. ESTIMATED GFR IS NOT APPLICABLE FOR DIALYSIS PATIENTS. POCT-GLUCOSE [id number] 05:56:00 Test Item Value Reference Range Comments POC-GLUCOSE METER (BEAKER) 86 mg/dL 70-110 TESTED AT [facility] [address] [facility] (test bmmg=0135) [facility] [address] CBC W/PLT COUNT & AUTO [id number] 04:42:00 Test Item Value Reference Range Comments WHITE BLOOD CELL COUNT (BEAKER) (test ljcb=979) 10.5 K/ L 3.5-10.5 RED BLOOD CELL COUNT (BEAKER) (test zvgl=048) 2.37 M/ L 4.63-6.08 HEMOGLOBIN (BEAKER) (test modb=325) 7.4 GM/DL 13.7-17.5 HEMATOCRIT (BEAKER) (test fnnf=247) 21.6 % 40.1-51.0 MEAN CORPUSCULAR VOLUME (BEAKER) (test fmhy=636) 91.1 fL 79.0-92.2 MEAN CORPUSCULAR HEMOGLOBIN (BEAKER) (test 31.2 pg 25.7-32.2 qkph=249) MEAN CORPUSCULAR HEMOGLOBIN CONC (BEAKER) (test 34.3 GM/DL 32.3-36.5 spqu=767) RED CELL DISTRIBUTION WIDTH (BEAKER) (test 14.4 % 11.6-14.4 lhfp=759) PLATELET COUNT (BEAKER) (test ajkk=633) 67 K/CU MM 150-450 MEAN PLATELET VOLUME (BEAKER) (test ekod=925) 8.3 fL 9.4-12.4 NUCLEATED RED BLOOD CELLS (BEAKER) (test 0 /100 WBC 0-0 vufo=546) NEUTROPHILS RELATIVE PERCENT (BEAKER) (test 82 % vhpc=397) LYMPHOCYTES RELATIVE PERCENT (BEAKER) (test 4 % vbyk=608) MONOCYTES RELATIVE PERCENT (BEAKER) (test 12 % nbig=404) EOSINOPHILS RELATIVE PERCENT (BEAKER) (test 1 % nnfx=994) BASOPHILS RELATIVE PERCENT (BEAKER) (test 0 % izsb=546) NEUTROPHILS ABSOLUTE COUNT (BEAKER) (test 8.62 K/ L 1.78-5.38 fwrl=754) LYMPHOCYTES ABSOLUTE COUNT (BEAKER) (test 0.45 K/ L 1.32-3.57 rexh=127) MONOCYTES ABSOLUTE COUNT (BEAKER) (test vgds=193) 1.31 K/ L 0.30-0.82 EOSINOPHILS ABSOLUTE COUNT (BEAKER) (test 0.10 K/ L 0.04-0.54 biwu=480) BASOPHILS ABSOLUTE COUNT (BEAKER) (test ehxt=578) 0.00 K/ L 0.01-0.08 IMMATURE GRANULOCYTES-RELATIVE PERCENT (BEAKER) 1 % 0-1 (test zdxl=6152) COMPREHENSIVE METABOLIC [id number] 04:36:00 Test Item Value Reference Range Comments TOTAL PROTEIN (BEAKER) 4.9 gm/dL 6.0-8.3 (test tgvp=536) ALBUMIN (BEAKER) (test 2.8 g/dL 3.5-5.0 kcoj=2024) ALKALINE PHOSPHATASE 146 U/L 40-150 (BEAKER) (test wuxj=002) BILIRUBIN TOTAL (BEAKER) 2.9 mg/dL 0.2-1.2 (test owez=949) SODIUM (BEAKER) (test 118 meq/L 136-145 zsnl=167) POTASSIUM (BEAKER) (test 5.2 meq/L 3.5-5.1 zrcd=346) CHLORIDE (BEAKER) (test 90 meq/L 98-107 ptsb=423) CO2 (BEAKER) (test 23 meq/L 22-29 wlli=390) BLOOD UREA NITROGEN 37 mg/dL 7-21 (BEAKER) (test vhdv=704) CREATININE (BEAKER) (test 1.47 mg/dL 0.57-1.25 kelc=134) GLUCOSE RANDOM (BEAKER) 65 mg/dL 70-105 (test zurj=768) CALCIUM (BEAKER) (test 8.9 mg/dL 8.4-10.2 fcdi=486) AST (SGOT) (BEAKER) (test 29 U/L 5-34 pasc=518) ALT (SGPT) (BEAKER) (test 10 U/L 6-55 vccc=980) EGFR (BEAKER) (test 50 mL/min/1.73 sq m ESTIMATED GFR IS NOT baex=2506) ACCURATE CREATININE CLEARANCE IN PREDICTING GLOMERULAR FILTRATION RATE. ESTIMATED GFR IS NOT APPLICABLE FOR DIALYSIS PATIENTS. Specimen slightly [id number] 04:33:00 Test Item Value Reference Range Comments PHOSPHORUS (BEAKER) (test heqc=509) 3.1 mg/dL 2.3-4.7 [id number] 04:33:00 Test Item Value Reference Range Comments MAGNESIUM (BEAKER) (test dawt=505) 2.1 mg/dL 1.6-2.6 CALCIUM, [id number] 04:05:00 Test Item Value Reference Range Comments CALCIUM IONIZED (BEAKER) (test mivs=520) 1.13 mmol/L 1.12-1.27 PH, BLOOD (BEAKER) (test iijz=9845) 7.38 BASIC METABOLIC [id number] 01:34:00 Test Item Value Reference Range Comments SODIUM (BEAKER) (test 117 meq/L 136-145 nnly=137) POTASSIUM (BEAKER) (test 4.9 meq/L 3.5-5.1 zroh=730) CHLORIDE (BEAKER) (test 89 meq/L 98-107 ezft=400) CO2 (BEAKER) (test 22 meq/L 22-29 buos=783) BLOOD UREA NITROGEN 37 mg/dL 7-21 (BEAKER) (test vanp=241) CREATININE (BEAKER) (test 1.52 mg/dL 0.57-1.25 ljgj=900) GLUCOSE RANDOM (BEAKER) 67 mg/dL 70-105 (test eafu=200) CALCIUM (BEAKER) (test 9.1 mg/dL 8.4-10.2 zwkp=521) EGFR (BEAKER) (test 48 mL/min/1.73 sq m ESTIMATED GFR IS NOT pqxa=2045) ACCURATE CREATININE CLEARANCE IN PREDICTING GLOMERULAR FILTRATION RATE. ESTIMATED GFR IS NOT APPLICABLE FOR DIALYSIS PATIENTS. Specimen slightly ictericU/S, ABDOMINAL, [id number] 23:49:00Abdomen limited area? Add comment if clarification [...] MDReport Verified Date/Time: 08/25/2018 23:49:36 Reading Location: [facility] C013Y CT Body Reading Room POCT-GLUCOSE [id number] 23:16:00 Test Item Value Reference Range Comments POC-GLUCOSE METER (BEAKER) 89 mg/dL 70-110 TESTED AT [facility] [address] [place] [address] (test apne=1930) [facility] [address] COMPREHENSIVE METABOLIC [id number] 21:15:00 Test Item Value Reference Range Comments TOTAL PROTEIN (BEAKER) 5.4 gm/dL 6.0-8.3 (test eaxh=159) ALBUMIN (BEAKER) (test 3.1 g/dL 3.5-5.0 fbjv=6112) ALKALINE PHOSPHATASE 164 U/L 40-150 (BEAKER) (test uqwl=595) BILIRUBIN TOTAL (BEAKER) 3.1 mg/dL 0.2-1.2 (test fehu=072) SODIUM (BEAKER) (test 116 meq/L 136-145 amet=915) POTASSIUM (BEAKER) (test 5.0 meq/L 3.5-5.1 chwh=301) CHLORIDE (BEAKER) (test 87 meq/L 98-107 kjfb=276) CO2 (BEAKER) (test 22 meq/L 22-29 jpri=504) BLOOD UREA NITROGEN 38 mg/dL 7-21 (BEAKER) (test dekb=780) CREATININE (BEAKER) (test 1.52 mg/dL 0.57-1.25 jydv=701) GLUCOSE RANDOM (BEAKER) 67 mg/dL 70-105 (test vftd=695) CALCIUM (BEAKER) (test 9.1 mg/dL 8.4-10.2 uomy=927) AST (SGOT) (BEAKER) (test 30 U/L 5-34 dimr=864) ALT (SGPT) (BEAKER) (test 10 U/L 6-55 uhfp=673) EGFR (BEAKER) (test 48 mL/min/1.73 sq m ESTIMATED GFR IS NOT sxwe=4609) ACCURATE CREATININE CLEARANCE IN PREDICTING GLOMERULAR FILTRATION RATE. ESTIMATED GFR IS NOT APPLICABLE FOR DIALYSIS PATIENTS. Recheck and call Dr. Solorio with results [phone] slightly ictericBASIC METABOLIC [id number] 17:36:00 Test Item Value Reference Range Comments SODIUM (BEAKER) (test 119 meq/L 136-145 eyip=399) POTASSIUM (BEAKER) (test 5.0 meq/L 3.5-5.1 nihu=086) CHLORIDE (BEAKER) (test 89 meq/L 98-107 udua=065) CO2 (BEAKER) (test 22 meq/L 22-29 xkui=680) BLOOD UREA NITROGEN 38 mg/dL 7-21 (BEAKER) (test klwe=084) CREATININE (BEAKER) (test 1.50 mg/dL 0.57-1.25 lyhl=975) GLUCOSE RANDOM (BEAKER) 70 mg/dL 70-105 (test jcwr=381) CALCIUM (BEAKER) (test 8.9 mg/dL 8.4-10.2 unkp=116) EGFR (BEAKER) (test 49 mL/min/1.73 sq m ESTIMATED GFR IS NOT mtwy=2086) ACCURATE CREATININE CLEARANCE IN PREDICTING GLOMERULAR FILTRATION RATE. ESTIMATED GFR IS NOT APPLICABLE FOR DIALYSIS PATIENTS. Specimen slightly ictericCT, CHEST, WITH HIGH RESOLUTION, INTERSTITAL LUNG [id number] 17:36:00Reason for exam:->follow up for lung noduleFINAL [...] present. Impression: Bibasilar subsegmental atelectasis. Signed: Lena Lynneport Verified Date/Time: 08/25/2018 17:36:51 Reading Location: [facility] B1 C013Y CT Body Reading Room CT, SPINE, LUMBAR, WO [id number] 17:06:00FINAL REPORT CT thoracic and lumbar spine [...] Nonskeletal findings as discussed. Signed: [facility] Verified Date/Time: 08/25/2018 17:06:21 Reading Location: [facility] Reading Room CT, SPINE, THORACIC, WO [id number] 17:06:00FINAL REPORT CT thoracic and lumbar spine [...] 08/25/2018 17: 06:21 Reading Location: [facility] Reading Room EOSINOPHIL SMEAR, [id number] 16:40:00 Test Item Value Reference Range Comments EOSINOPHIL SMEAR, URINE (BEAKER) (test No EOS seen No EOS seen kato=3525) SODIUM, RANDOM [id number] 15:13:00 Test Item Value Reference Range Comments SODIUM URINE (BEAKER) (test afzp=318) < meq/L Reference Range: No NormalsCOMPREHENSIVE METABOLIC [id number] 15:12:00 Test Item Value Reference Range Comments TOTAL PROTEIN (BEAKER) 5.0 gm/dL 6.0-8.3 (test dfwx=263) ALBUMIN (BEAKER) (test 2.9 g/dL 3.5-5.0 isgb=9012) ALKALINE PHOSPHATASE 154 U/L 40-150 (BEAKER) (test mbau=497) BILIRUBIN TOTAL (BEAKER) 3.1 mg/dL 0.2-1.2 (test fmbc=595) SODIUM (BEAKER) (test 116 meq/L 136-145 xxcd=664) POTASSIUM (BEAKER) (test 4.8 meq/L 3.5-5.1 esed=846) CHLORIDE (BEAKER) (test 87 meq/L 98-107 ridp=093) CO2 (BEAKER) (test 24 meq/L 22-29 slxa=762) BLOOD UREA NITROGEN 39 mg/dL 7-21 (BEAKER) (test eoai=323) CREATININE (BEAKER) (test 1.53 mg/dL 0.57-1.25 brak=144) GLUCOSE RANDOM (BEAKER) 67 mg/dL 70-105 (test mnbf=409) CALCIUM (BEAKER) (test 8.6 mg/dL 8.4-10.2 qilz=550) AST (SGOT) (BEAKER) (test 24 U/L 5-34 cyet=967) ALT (SGPT) (BEAKER) (test 11 U/L 6-55 gdhj=690) EGFR (BEAKER) (test 48 mL/min/1.73 sq m ESTIMATED GFR IS NOT bbij=2874) ACCURATE CREATININE CLEARANCE IN PREDICTING GLOMERULAR FILTRATION RATE. ESTIMATED GFR IS NOT APPLICABLE FOR DIALYSIS PATIENTS. Specimen slightly ictericPROTEIN, RANDOM [id number] 15:12:00 Test Item Value Reference Range Comments PROTEIN, URINE (BEAKER) (test scuj=4143) < mg/dL 0-14 CREATININE, RANDOM [id number] 15:10:00 Test Item Value Reference Range Comments CREATININE URINE (BEAKER) (test nfze=497) 75.0 mg/dL Reference Range: No NormalsURINALYSIS W/ [id number] 14:55:00 Test Item Value Reference Range Comments COLOR (BEAKER) (test uspe=866) Yellow CLARITY (BEAKER) (test ilcw=750) Hazy SPECIFIC GRAVITY UA (BEAKER) (test wqzq=966) 1.009 1.001-1.035 PH UA (BEAKER) (test uitj=786) 5.5 5.0-8.0 PROTEIN UA (BEAKER) (test gulw=251) Negative Negative GLUCOSE UA (BEAKER) (test duyp=266) Negative Negative KETONES UA (BEAKER) (test xqit=767) Negative Negative BILIRUBIN UA (BEAKER) (test vqnc=054) Negative Negative BLOOD UA (BEAKER) (test fryy=155) Small Negative NITRITE UA (BEAKER) (test hrtn=574) Negative Negative LEUKOCYTE ESTERASE UA (BEAKER) (test damy=027) Negative Negative UROBILINOGEN UA (BEAKER) (test hjlf=063) 0.2 mg/dL 0.2-1.0 RBC UA (BEAKER) (test fatm=639) 20 /HPF WBC UA (BEAKER) (test ollt=748) 27 /HPF SQUAMOUS EPITHELIAL (BEAKER) (test sxlr=170) 18 /HPF SOURCE(BEAKER) (test mnfk=9301) URINALYSIS W/ REFLEX URINE [id number] 14:47:00 Test Item Value Reference Range Comments COLOR (BEAKER) (test zgyo=861) Yellow CLARITY (BEAKER) (test buuh=395) Hazy SPECIFIC GRAVITY UA (BEAKER) (test fsuk=688) 1.010 1.001-1.035 PH UA (BEAKER) (test oilf=882) 5.5 5.0-8.0 PROTEIN UA (BEAKER) (test pdtz=180) Negative Negative GLUCOSE UA (BEAKER) (test bocy=093) Negative Negative KETONES UA (BEAKER) (test zuua=915) Negative Negative BILIRUBIN UA (BEAKER) (test bzsf=241) Negative Negative BLOOD UA (BEAKER) (test iodn=354) Small Negative NITRITE UA (BEAKER) (test kwtz=995) Negative Negative LEUKOCYTE ESTERASE UA (BEAKER) (test ngpg=887) Negative Negative UROBILINOGEN UA (BEAKER) (test ogvw=449) 0.2 mg/dL 0.2-1.0 RBC UA (BEAKER) (test rvxz=538) 38 /HPF WBC UA (BEAKER) (test ayko=576) 7 /HPF SQUAMOUS EPITHELIAL (BEAKER) (test sqaj=318) 18 /HPF AMORPHOUS CRYSTALS (BEAKER) (test xmiz=4215) Rare SOURCE(BEAKER) (test kqpq=9917) OSMOLALITY, [id number] 14:40:00 Test Item Value Reference Range Comments OSMOLALITY URINE (BEAKER) (test btuh=401) 284 mOsm/kg 40-1,400 [id number] 13:34:00 Test Item Value Reference Range Comments PROCALCITONIN (BEAKER) (test kadj=9351) 0.25 ng/mL <0.05 SEPSIS RISK (ng/mL)Low: 0.05-0.50Intermediate: 0.51-2.00High: & gt;=2.01OSMOLALITY, [id number] 12:43:00 Test Item Value Reference Range Comments OSMOLALITY URINE (BEAKER) (test dwdg=133) 316 mOsm/kg 40-1,400 OSMOLALITY, [id number] 12:41:00 Test Item Value Reference Range Comments OSMOLALITY, SERUM (BEAKER) (test wzwj=322) 259 mOsm/kg 275-295 TSH/FREE T4 IF [id number] 11:36:00 Test Item Value Reference Range Comments THYROID STIMULATING HORMONE (BEAKER) (test 2.55 uIU/mL 0.35-4.94 dwnv=301) [id number] 11:34:00 Test Item Value Reference Range Comments CORTISOL, TOTAL (BEAKER) (test moyl=6463) 7.9 ug/dL 3.7-19.4 SODIUM, RANDOM [id number] 11:34:00 Test Item Value Reference Range Comments SODIUM URINE (BEAKER) (test yqly=181) < meq/L Reference Range: No NormalsBASIC METABOLIC [id number] 11:24:00 Test Item Value Reference Range Comments SODIUM (BEAKER) (test 113 meq/L 136-145 ywjp=263) POTASSIUM (BEAKER) (test 5.3 meq/L 3.5-5.1 eabk=524) CHLORIDE (BEAKER) (test 86 meq/L 98-107 xass=657) CO2 (BEAKER) (test 21 meq/L 22-29 mdyz=663) BLOOD UREA NITROGEN 39 mg/dL 7-21 (BEAKER) (test ejmu=524) CREATININE (BEAKER) (test 1.57 mg/dL 0.57-1.25 gsrm=280) GLUCOSE RANDOM (BEAKER) 64 mg/dL 70-105 (test dxng=720) CALCIUM (BEAKER) (test 9.1 mg/dL 8.4-10.2 hinj=348) EGFR (BEAKER) (test 46 mL/min/1.73 sq m ESTIMATED GFR IS NOT jtem=6339) ACCURATE CREATININE CLEARANCE IN PREDICTING GLOMERULAR FILTRATION RATE. ESTIMATED GFR IS NOT APPLICABLE FOR DIALYSIS PATIENTS. Specimen slightly ictericURIC [id number] 11:21:00 Test Item Value Reference Range Comments URIC ACID (BEAKER) (test ycss=151) 8.2 mg/dL 2.6-7.2 Specimen slightly ictericCREATININE, RANDOM [id number] 11:21:00 Test Item Value Reference Range Comments CREATININE URINE (BEAKER) (test xrdx=983) 81.9 mg/dL Reference Range: No NormalsPOTASSIUM, RANDOM [id number] 11:21:00 Test Item Value Reference Range Comments POTASSIUM URINE (BEAKER) (test dkcn=353) 19.2 meq/L Reference Range: No NormalsCBC W/PLT COUNT & AUTO [id number] 10: 20:00 Test Item Value Reference Range Comments WHITE BLOOD CELL COUNT (BEAKER) (test cdhx=242) 10.9 K/ L 3.5-10.5 RED BLOOD CELL COUNT (BEAKER) (test kqkw=427) 2.46 M/ L 4.63-6.08 HEMOGLOBIN (BEAKER) (test qwsx=204) 7.9 GM/DL 13.7-17.5 HEMATOCRIT (BEAKER) (test jtlb=603) 22.2 % 40.1-51.0 MEAN CORPUSCULAR VOLUME (BEAKER) (test pelp=939) 90.2 fL 79.0-92.2 MEAN CORPUSCULAR HEMOGLOBIN (BEAKER) (test 32.1 pg 25.7-32.2 mnoo=583) MEAN CORPUSCULAR HEMOGLOBIN CONC (BEAKER) (test 35.6 GM/DL 32.3-36.5 wimm=123) RED CELL DISTRIBUTION WIDTH (BEAKER) (test 14.2 % 11.6-14.4 xzso=126) PLATELET COUNT (BEAKER) (test abmo=369) 82 K/CU MM 150-450 MEAN PLATELET VOLUME (BEAKER) (test fnck=726) 8.3 fL 9.4-12.4 NUCLEATED RED BLOOD CELLS (BEAKER) (test 0 /100 WBC 0-0 gvuz=216) (CELLAVISION MANUAL DIFF)[id number] 10:20:00 Test Item Value Reference Range Comments NEUTROPHILS - REL (CELLAVISION)(BEAKER) (test 80 % htzy=0397) LYMPHOCYTES - REL (CELLAVISION)(BEAKER) (test 2 % rful=8823) MONOCYTES - REL (CELLAVISION)(BEAKER) (test 6 % izyh=6589) BANDS - REL (CELLAVISION)(BEAKER) (test 12 % 0-10 ijzo=4672) NEUTROPHILS - ABS (CELLAVISION)(BEAKER) (test 8.72 K/ul 1.78-5.38 cayt=4242) LYMPHOCYTES - ABS (CELLAVISION)(BEAKER) (test 0.22 K/ul 1.32-3.57 niky=3944) MONOCYTES - ABS (CELLAVISION)(BEAKER) (test 0.65 K/uL 0.30-0.82 zhxe=0709) BANDS - ABS (CELLAVISION)(BEAKER) (test 1.31 K/uL 0.00-0.80 opzy=7258) TOTAL COUNTED (BEAKER) (test elra=6756) 100 WBC MORPHOLOGY (BEAKER) (test yenl=748) Normal PLT MORPHOLOGY (BEAKER) (test dgnl=575) Normal POLYCHROMATOPHILLIC RBCS(BEAKER) (test dmkr=133) 2+ moderate ANISOCYTOSIS (BEAKER) (test hjam=715) 2+ moderate POIKILOCYTES (BEAKER) (test phvl=301) 2+ moderate ARTIFACT (CELLAVISION)(BEAKER) (test wdbk=6762) Present PLATELET CONCENTRATION (CELLAVISION)(BEAKER) Decreased (test tclu=6711) Received comment: User comments: Slide comments:COMPREHENSIVE METABOLIC [id number] 09:30:00 Test Item Value Reference Range Comments TOTAL PROTEIN (BEAKER) 5.2 gm/dL 6.0-8.3 (test otmt=216) ALBUMIN (BEAKER) (test 3.0 g/dL 3.5-5.0 yhdh=3724) ALKALINE PHOSPHATASE 158 U/L 40-150 (BEAKER) (test optp=275) BILIRUBIN TOTAL (BEAKER) 2.9 mg/dL 0.2-1.2 (test vags=714) SODIUM (BEAKER) (test 111 meq/L 136-145 lzgy=492) POTASSIUM (BEAKER) (test 5.5 meq/L 3.5-5.1 spdm=074) CHLORIDE (BEAKER) (test 87 meq/L 98-107 przd=521) CO2 (BEAKER) (test 20 meq/L 22-29 wifg=145) BLOOD UREA NITROGEN 39 mg/dL 7-21 (BEAKER) (test fwxk=384) CREATININE (BEAKER) (test 1.55 mg/dL 0.57-1.25 txbl=653) GLUCOSE RANDOM (BEAKER) 79 mg/dL 70-105 (test ixqf=567) CALCIUM (BEAKER) (test 9.0 mg/dL 8.4-10.2 jwco=498) AST (SGOT) (BEAKER) (test 27 U/L 5-34 vkoo=629) ALT (SGPT) (BEAKER) (test 9 U/L 6-55 iaqs=249) EGFR (BEAKER) (test 47 mL/min/1.73 sq m ESTIMATED GFR IS NOT gsun=3947) ACCURATE CREATININE CLEARANCE IN PREDICTING GLOMERULAR FILTRATION RATE. ESTIMATED GFR IS NOT APPLICABLE FOR DIALYSIS PATIENTS. Specimen slightly ictericLACTIC ACID, VENOUS, WHOLE [id number] 09:15:00 Test Item Value Reference Range Comments LACTATE BLOOD VENOUS (2) (BEAKER) (test 0.9 mmol/L 0.5-2.2 hxxz=4682) Effective 02/28/2016: Units/Reference Range ChangeNew: 0.5-2.2 mmol/L Previous: 5 -20 mg/dLSpecimen slightly [id number] 09:01:00 Test Item Value Reference Range Comments AMMONIA (BEAKER) (test woac=821) 83 mol/L 18-72 PT/[id number] 08:54:00 Test Item Value Reference Range Comments PROTIME (BEAKER) (test jrvo=809) 21.4 seconds 11.7-14.7 INR (BEAKER) (test glrm=055) 1.9 <=5.9 PARTIAL THROMBOPLASTIN TIME (BEAKER) (test 44.2 seconds 22.5-36.0 mnqn=784) RECOMMENDED COUMADIN/WARFARIN INR THERAPY RANGESSTANDARD DOSE: 2.0 - 3.0 Includes: PROPHYLAXIS forvenous thrombosis, systemic embolization; TREATMENT for venous thrombosis and/or pulmonary embolus.HIGH RISK: Target INR is 2.5-3.5 for patients with mechanical heart valves.PROTHROMBIN TIME/[id number] 08:53: 00 Test Item Value Reference Range Comments PROTIME (BEAKER) (test giye=436) 21.4 seconds 11.7-14.7 INR (BEAKER) (test ubat=436) 1.9 <=5.9 RECOMMENDED COUMADIN/WARFARIN INR THERAPY RANGESSTANDARD DOSE: 2.0 - 3.0 Includes: PROPHYLAXIS forvenous thrombosis, systemic embolization; TREATMENT for venous thrombosis and/or pulmonary embolus.HIGH RISK: Target INR is 2.5-3.5 for patients with mechanical heart valves.COMPREHENSIVE METABOLIC [id number] 13:54:00 Test Item Value Reference Range Comments TOTAL PROTEIN (BEAKER) 6.2 gm/dL 6.0-8.3 (test dqgx=601) ALBUMIN (BEAKER) (test 3.4 g/dL 3.5-5.0 ocna=7245) ALKALINE PHOSPHATASE 190 U/L 40-150 (BEAKER) (test aqpq=041) BILIRUBIN TOTAL (BEAKER) 1.9 mg/dL 0.2-1.2 (test eocs=690) SODIUM (BEAKER) (test 125 meq/L 136-145 tqch=895) POTASSIUM (BEAKER) (test 5.0 meq/L 3.5-5.1 vxnp=705) CHLORIDE (BEAKER) (test 99 meq/L 98-107 mwln=237) CO2 (BEAKER) (test 19 meq/L 22-29 slsa=226) BLOOD UREA NITROGEN 36 mg/dL 7-21 (BEAKER) (test plxp=076) CREATININE (BEAKER) (test 1.65 mg/dL 0.57-1.25 ndyu=739) GLUCOSE RANDOM (BEAKER) 133 mg/dL 70-105 (test eymx=071) CALCIUM (BEAKER) (test 9.5 mg/dL 8.4-10.2 fquc=944) AST (SGOT) (BEAKER) (test 23 U/L 5-34 zufo=990) ALT (SGPT) (BEAKER) (test 12 U/L 6-55 musy=550) EGFR (BEAKER) (test 44 mL/min/1.73 sq m ESTIMATED GFR IS NOT abmd=0272) ACCURATE CREATININE CLEARANCE IN PREDICTING GLOMERULAR FILTRATION RATE. ESTIMATED GFR IS NOT APPLICABLE FOR DIALYSIS PATIENTS. BILIRUBIN, [id number] 13:54:00 Test Item Value Reference Range Comments BILIRUBIN DIRECT (BEAKER) (test dwho=650) 1.4 mg/dL 0.1-0.5 CBC W/PLT COUNT & AUTO [id number] 13:50:00 Test Item Value Reference Range Comments WHITE BLOOD CELL COUNT (BEAKER) (test vlgy=285) 6.8 K/ L 3.5-10.5 RED BLOOD CELL COUNT (BEAKER) (test donx=528) 3.01 M/ L 4.63-6.08 HEMOGLOBIN (BEAKER) (test qjch=040) 9.5 GM/DL 13.7-17.5 HEMATOCRIT (BEAKER) (test ayqt=792) 28.3 % 40.1-51.0 MEAN CORPUSCULAR VOLUME (BEAKER) (test iags=155) 94.0 fL 79.0-92.2 MEAN CORPUSCULAR HEMOGLOBIN (BEAKER) (test 31.6 pg 25.7-32.2 eitu=348) MEAN CORPUSCULAR HEMOGLOBIN CONC (BEAKER) (test 33.6 GM/DL 32.3-36.5 lfpk=600) RED CELL DISTRIBUTION WIDTH (BEAKER) (test 14.5 % 11.6-14.4 cbsx=672) PLATELET COUNT (BEAKER) (test zswn=639) 131 K/CU MM 150-450 MEAN PLATELET VOLUME (BEAKER) (test cpvp=180) 9.0 fL 9.4-12.4 NUCLEATED RED BLOOD CELLS (BEAKER) (test 0 /100 WBC 0-0 ngld=903) NEUTROPHILS RELATIVE PERCENT (BEAKER) (test 75 % ebfw=923) LYMPHOCYTES RELATIVE PERCENT (BEAKER) (test 7 % fuuy=756) MONOCYTES RELATIVE PERCENT (BEAKER) (test 14 % faga=792) EOSINOPHILS RELATIVE PERCENT (BEAKER) (test 2 % pjug=098) BASOPHILS RELATIVE PERCENT (BEAKER) (test 0 % yqmi=094) NEUTROPHILS ABSOLUTE COUNT (BEAKER) (test 5.11 K/ L 1.78-5.38 xfeq=918) LYMPHOCYTES ABSOLUTE COUNT (BEAKER) (test 0.50 K/ L 1.32-3.57 fymv=534) MONOCYTES ABSOLUTE COUNT (BEAKER) (test 0.94 K/ L 0.30-0.82 vblg=955) EOSINOPHILS ABSOLUTE COUNT (BEAKER) (test 0.12 K/ L 0.04-0.54 wxyv=939) BASOPHILS ABSOLUTE COUNT (BEAKER) (test 0.03 K/ L 0.01-0.08 lsvy=298) IMMATURE GRANULOCYTES-RELATIVE PERCENT (BEAKER) 1 % 0-1 (test wway=2525) PROTHROMBIN TIME/[id number] 13:46:00 Test Item Value Reference Range Comments PROTIME (BEAKER) (test lste=239) 19.5 seconds 11.7-14.7 INR (TUNG) (test yoch=086) 1.7 <=5.9 RECOMMENDED COUMADIN/WARFARIN INR THERAPY RANGESSTANDARD DOSE: 2.0 - 3.0 Includes: PROPHYLAXIS forvenous thrombosis, systemic embolization; TREATMENT for venous thrombosis and/or pulmonary embolus.HIGH RISK: Target INR is 2.5-3.5 for patients with mechanical heart valves.BONE AND/OR JOINT IMAGING, WHOLE [id number] 16:45:00FINAL REPORT PROCEDURE: BONE SCAN, WHOLE BODY CPT CODE: [id number] INDICATION: L3 vertebral body lesion follow-up R91.1 [...] Verified Date/ Time: 08/05/2018 16:45:34 Reading Location: [address] Reading Room NIR, VERTEBROPLASTY THORACIC, [id number] 17:23:00Reason for exam:->T11, T12, L2 compression fracturesAddendum BeginsREPORT STATUS:A Addendum: June 04, 2018 1720 hours It should be noted that the number images saved to PACS procedure are extremely limited due to equipment malfunction and image archiving problems. Because of these issues, two views of the thoracic and lumbar spine were obtained following the procedure Signed: Karina Rainort Verified Date/Time: 06/04/2018 17:23:27 Reading Location : [address] Radiology Reading RoomAddendum EndsFINAL REPORT HISTORY: [...] reported as (Ka,r): 1550 mGy Signed: Karina Raineport Verified Date/Time: 06/03/2018 17:56:43 Reading Location : [place] [address] Angio Body Reading Room ALPHA FETOPROTEIN (AFP), TUMOR [id number] 15:20:00 Test Item Value Reference Range Comments ALPHA-FETOPROTEIN (BEAKER) (test lzdc=7645) 2.2 ng/mL <10.0 COMPREHENSIVE METABOLIC [id number] 14:54:00 Test Item Value Reference Range Comments TOTAL PROTEIN (BEAKER) 6.5 gm/dL 6.0-8.3 (test enlh=158) ALBUMIN (BEAKER) (test 3.6 g/dL 3.5-5.0 tlbx=0661) ALKALINE PHOSPHATASE 342 U/L 40-150 (BEAKER) (test iisn=221) BILIRUBIN TOTAL (BEAKER) 4.2 mg/dL 0.2-1.2 (test awbl=885) SODIUM (BEAKER) (test 128 meq/L 136-145 rbka=504) POTASSIUM (BEAKER) (test 4.6 meq/L 3.5-5.1 zznl=595) CHLORIDE (BEAKER) (test 100 meq/L 98-107 miku=670) CO2 (BEAKER) (test 21 meq/L 22-29 sxus=537) BLOOD UREA NITROGEN 21 mg/dL 7-21 (BEAKER) (test sxbm=324) CREATININE (BEAKER) (test 1.37 mg/dL 0.57-1.25 tpbi=045) GLUCOSE RANDOM (BEAKER) 108 mg/dL 70-105 (test eakl=747) CALCIUM (BEAKER) (test 9.5 mg/dL 8.4-10.2 bisj=084) AST (SGOT) (BEAKER) (test 25 U/L 5-34 lbqy=571) ALT (SGPT) (BEAKER) (test 10 U/L 6-55 rjxz=045) EGFR (BEAKER) (test 54 mL/min/1.73 sq m ESTIMATED GFR IS NOT avrd=9146) ACCURATE CREATININE CLEARANCE IN PREDICTING GLOMERULAR FILTRATION RATE. ESTIMATED GFR IS NOT APPLICABLE FOR DIALYSIS PATIENTS. Specimen slightly ictericBILIRUBIN, [id number] 14:54:00 Test Item Value Reference Range Comments BILIRUBIN DIRECT (BEAKER) (test tiiq=582) 2.1 mg/dL 0.1-0.5 CBC W/PLT COUNT & AUTO [id number] 14:52:00 Test Item Value Reference Range Comments WHITE BLOOD CELL COUNT (BEAKER) (test faeg=030) 3.9 K/ L 3.5-10.5 RED BLOOD CELL COUNT (BEAKER) (test wkrz=264) 2.69 M/ L 4.63-6.08 HEMOGLOBIN (BEAKER) (test pmxl=751) 9.1 GM/DL 13.7-17.5 HEMATOCRIT (BEAKER) (test tlpq=789) 27.3 % 40.1-51.0 MEAN CORPUSCULAR VOLUME (BEAKER) (test tefd=473) 101.5 fL 79.0-92.2 MEAN CORPUSCULAR HEMOGLOBIN (BEAKER) (test 33.8 pg 25.7-32.2 gjud=292) MEAN CORPUSCULAR HEMOGLOBIN CONC (BEAKER) (test 33.3 GM/DL 32.3-36.5 yzuf=290) RED CELL DISTRIBUTION WIDTH (BEAKER) (test 18.6 % 11.6-14.4 uhhl=832) PLATELET COUNT (BEAKER) (test hshg=829) 71 K/CU MM 150-450 MEAN PLATELET VOLUME (BEAKER) (test sgsw=985) 9.6 fL 9.4-12.4 NUCLEATED RED BLOOD CELLS (BEAKER) (test 0 /100 WBC 0-0 ufwp=257) NEUTROPHILS RELATIVE PERCENT (BEAKER) (test 62 % aeus=707) LYMPHOCYTES RELATIVE PERCENT (BEAKER) (test 16 % btdd=985) MONOCYTES RELATIVE PERCENT (BEAKER) (test 17 % hrza=844) EOSINOPHILS RELATIVE PERCENT (BEAKER) (test 5 % xzkf=505) BASOPHILS RELATIVE PERCENT (BEAKER) (test 0 % itlx=215) NEUTROPHILS ABSOLUTE COUNT (BEAKER) (test 2.41 K/ L 1.78-5.38 jfdq=498) LYMPHOCYTES ABSOLUTE COUNT (BEAKER) (test 0.62 K/ L 1.32-3.57 kigw=987) MONOCYTES ABSOLUTE COUNT (BEAKER) (test hqop=968) 0.65 K/ L 0.30-0.82 EOSINOPHILS ABSOLUTE COUNT (BEAKER) (test 0.20 K/ L 0.04-0.54 mzyf=013) BASOPHILS ABSOLUTE COUNT (BEAKER) (test xjjl=565) 0.01 K/ L 0.01-0.08 IMMATURE GRANULOCYTES-RELATIVE PERCENT (BEAKER) 0 % 0-1 (test rzzp=5561) PROTHROMBIN TIME/[id number] 14:50:00 Test Item Value Reference Range Comments PROTIME (BEAKER) (test nrpc=537) 19.5 seconds 11.7-14.7 INR (BEAKER) (test ghoq=702) 1.7 <=5.9 RECOMMENDED COUMADIN/WARFARIN INR THERAPY RANGESSTANDARD DOSE: 2.0 - 3.0 Includes: PROPHYLAXIS forvenous thrombosis, systemic embolization; TREATMENT for venous thrombosis and/or pulmonary embolus.HIGH RISK: Target INR is 2.5-3.5 for patients with mechanical heart valves.BODY FLUID CULTURE + GRAM [id number] 13:19:00 Test Item Value Reference Range Comments CULTURE (BEAKER) (test muva=0537) No growth GRAM STAIN RESULT (BEAKER) (test No WBCs mgfq=4877) GRAM STAIN RESULT (BEAKER) (test No organisms seen eegc=15646) [id number] 17:36:00 Test Item Value Reference Range Comments SODIUM (BEAKER) (test fynt=141) 133 meq/L 136-145 POTASSIUM (BEAKER) (test nkew=564) 3.2 meq/L 3.5-5.1 CHLORIDE (BEAKER) (test arsz=544) 102 meq/L 98-107 CO2 (BEAKER) (test qbvv=467) 21 meq/L 22-29 [id number] 13:21:00 Test Item Value Reference Range Comments SODIUM (BEAKER) (test rsdh=051) 134 meq/L 136-145 POTASSIUM (BEAKER) (test dljh=391) 3.0 meq/L 3.5-5.1 CHLORIDE (BEAKER) (test hyig=999) 103 meq/L 98-107 CO2 (BEAKER) (test rxom=644) 22 meq/L 22-29 CALCIUM, [id number] 04:54:00 Test Item Value Reference Range Comments CALCIUM IONIZED (BEAKER) (test fdtg=367) 1.09 mmol/L 1.12-1.27 PH, BLOOD (BEAKER) (test pqxr=9398) 7.35 [id number] 04:04:00 Test Item Value Reference Range Comments PHOSPHORUS (BEAKER) (test wlnl=316) 2.4 mg/dL 2.3-4.7 [id number] 04:04:00 Test Item Value Reference Range Comments MAGNESIUM (BEAKER) (test ygqx=286) 2.0 mg/dL 1.6-2.6 HEPATIC FUNCTION [id number] 04:04:00 Test Item Value Reference Range Comments TOTAL PROTEIN (BEAKER) (test ofoy=899) 5.8 gm/dL 6.0-8.3 ALBUMIN (BEAKER) (test ahke=6647) 4.1 g/dL 3.5-5.0 BILIRUBIN TOTAL (BEAKER) (test dtnw=829) 3.9 mg/dL 0.2-1.2 BILIRUBIN DIRECT (BEAKER) (test mwsi=710) 2.0 mg/dL 0.1-0.5 ALKALINE PHOSPHATASE (BEAKER) (test wnyk=276) 123 U/L 40-150 AST (SGOT) (BEAKER) (test bymu=611) 14 U/L 5-34 ALT (SGPT) (BEAKER) (test pnwr=986) < U/L 6-55 Specimen slightly ictericCOMPREHENSIVE METABOLIC [id number] 04:04:00 Test Item Value Reference Range Comments TOTAL PROTEIN (BEAKER) 5.8 gm/dL 6.0-8.3 (test kewe=345) ALBUMIN (BEAKER) (test 4.1 g/dL 3.5-5.0 nqyp=8826) ALKALINE PHOSPHATASE 123 U/L 40-150 (BEAKER) (test idsb=108) BILIRUBIN TOTAL (BEAKER) 3.9 mg/dL 0.2-1.2 (test kavh=363) SODIUM (BEAKER) (test 135 meq/L 136-145 rfhe=055) POTASSIUM (BEAKER) (test 2.9 meq/L 3.5-5.1 defj=132) CHLORIDE (BEAKER) (test 103 meq/L 98-107 ycpn=466) CO2 (BEAKER) (test 21 meq/L 22-29 ijhq=673) BLOOD UREA NITROGEN 18 mg/dL 7-21 (BEAKER) (test cvfs=996) CREATININE (BEAKER) (test 1.32 mg/dL 0.57-1.25 gdgp=841) GLUCOSE RANDOM (BEAKER) 126 mg/dL 70-105 (test yzyn=020) CALCIUM (BEAKER) (test 9.8 mg/dL 8.4-10.2 udmw=236) AST (SGOT) (BEAKER) (test 14 U/L 5-34 ezlw=969) ALT (SGPT) (BEAKER) (test < U/L 6-55 dwbe=583) EGFR (BEAKER) (test 57 mL/min/1.73 sq m ESTIMATED GFR IS NOT ljcm=9107) ACCURATE CREATININE CLEARANCE IN PREDICTING GLOMERULAR FILTRATION RATE. ESTIMATED GFR IS NOT APPLICABLE FOR DIALYSIS PATIENTS. Specimen slightly ictericPROTHROMBIN [id number] 04:02:00 Test Item Value Reference Range Comments PROTIME (BEAKER) (test rqlk=015) 25.1 seconds 11.7-14.7 INR (BEAKER) (test ungp=356) 2.3 <=5.9 RECOMMENDED COUMADIN/WARFARIN INR THERAPY RANGESSTANDARD DOSE: 2.0 - 3.0 Includes: PROPHYLAXIS forvenous thrombosis, systemic embolization; TREATMENT for venous thrombosis and/or pulmonary embolus.HIGH RISK: Target INR is 2.5-3.5 for patients with mechanical heart valves.CBC W/PLT COUNT & AUTO [id number] 03:55:00 Test Item Value Reference Range Comments WHITE BLOOD CELL COUNT (BEAKER) (test qhjk=330) 3.6 K/ L 3.5-10.5 RED BLOOD CELL COUNT (BEAKER) (test mzid=219) 2.48 M/ L 4.63-6.08 HEMOGLOBIN (BEAKER) (test asez=562) 7.9 GM/DL 13.7-17.5 HEMATOCRIT (BEAKER) (test qalb=609) 23.7 % 40.1-51.0 MEAN CORPUSCULAR VOLUME (BEAKER) (test slwe=636) 95.6 fL 79.0-92.2 MEAN CORPUSCULAR HEMOGLOBIN (BEAKER) (test 31.9 pg 25.7-32.2 qatm=416) MEAN CORPUSCULAR HEMOGLOBIN CONC (BEAKER) (test 33.3 GM/DL 32.3-36.5 pojv=251) RED CELL DISTRIBUTION WIDTH (BEAKER) (test 18.8 % 11.6-14.4 txyh=542) PLATELET COUNT (BEAKER) (test kubi=722) 38 K/CU MM 150-450 MEAN PLATELET VOLUME (BEAKER) (test phdj=338) 9.3 fL 9.4-12.4 NUCLEATED RED BLOOD CELLS (BEAKER) (test 0 /100 WBC 0-0 eftb=085) NEUTROPHILS RELATIVE PERCENT (BEAKER) (test 57 % wqco=192) LYMPHOCYTES RELATIVE PERCENT (BEAKER) (test 15 % aoir=586) MONOCYTES RELATIVE PERCENT (BEAKER) (test 22 % gmjb=674) EOSINOPHILS RELATIVE PERCENT (BEAKER) (test 4 % beka=412) BASOPHILS RELATIVE PERCENT (BEAKER) (test 0 % eeyl=258) NEUTROPHILS ABSOLUTE COUNT (BEAKER) (test 2.09 K/ L 1.78-5.38 ymqn=324) LYMPHOCYTES ABSOLUTE COUNT (BEAKER) (test 0.54 K/ L 1.32-3.57 zhpg=082) MONOCYTES ABSOLUTE COUNT (BEAKER) (test smpk=517) 0.81 K/ L 0.30-0.82 EOSINOPHILS ABSOLUTE COUNT (BEAKER) (test 0.15 K/ L 0.04-0.54 rrvj=304) BASOPHILS ABSOLUTE COUNT (BEAKER) (test vggp=540) 0.01 K/ L 0.01-0.08 IMMATURE GRANULOCYTES-RELATIVE PERCENT (BEAKER) 1 % 0-1 (test hdwe=7725) [id number] 18:07:00 Test Item Value Reference Range Comments SODIUM (BEAKER) (test hgts=881) 132 meq/L 136-145 POTASSIUM (BEAKER) (test 2.9 meq/L 3.5-5.1 Specimen slightly hemolyzed oxkr=107) CHLORIDE (BEAKER) (test 101 meq/L 98-107 gzde=177) CO2 (BEAKER) (test evcs=545) 18 meq/L 22-29 LACTIC ACID, VENOUS, WHOLE [id number] 16:43:00 Test Item Value Reference Range Comments LACTATE BLOOD VENOUS (2) 1.6 mmol/L 0.5-2.2 Specimen slightly hemolyzed (BEAKER) (test mwdz=4129) Effective 02/28/2016: Units/Reference Range ChangeNew: 0.5-2.2 mmol/L Previous: 5 -20 mg/dLSpecimen slightly ictericBODY FLUID CULTURE + GRAM [id number] 12: 08:00 Test Item Value Reference Range Comments CULTURE (BEAKER) (test ucng=5173) No growth GRAM STAIN RESULT (BEAKER) (test <1+ WBCs coyj=0566) GRAM STAIN RESULT (BEAKER) (test No organisms seen tifb=52265) [id number] 08:10:00 Test Item Value Reference Range Comments PHOSPHORUS (BEAKER) (test gnzs=147) 2.8 mg/dL 2.3-4.7 [id number] 08:10:00 Test Item Value Reference Range Comments MAGNESIUM (BEAKER) (test gmwa=933) 2.2 mg/dL 1.6-2.6 COMPREHENSIVE METABOLIC [id number] 08:10:00 Test Item Value Reference Range Comments TOTAL PROTEIN (BEAKER) 6.2 gm/dL 6.0-8.3 (test ipyz=256) ALBUMIN (BEAKER) (test 4.4 g/dL 3.5-5.0 bivr=1147) ALKALINE PHOSPHATASE 121 U/L 40-150 (BEAKER) (test dmtm=669) BILIRUBIN TOTAL (BEAKER) 4.4 mg/dL 0.2-1.2 (test futt=764) SODIUM (BEAKER) (test 135 meq/L 136-145 imei=988) POTASSIUM (BEAKER) (test 2.8 meq/L 3.5-5.1 eikl=325) CHLORIDE (BEAKER) (test 102 meq/L 98-107 wjku=825) CO2 (BEAKER) (test 21 meq/L 22-29 jnqf=125) BLOOD UREA NITROGEN 20 mg/dL 7-21 (BEAKER) (test wjtf=035) CREATININE (BEAKER) (test 1.34 mg/dL 0.57-1.25 ebjz=000) GLUCOSE RANDOM (BEAKER) 132 mg/dL 70-105 (test bfra=830) CALCIUM (BEAKER) (test 10.0 mg/dL 8.4-10.2 fjdu=342) AST (SGOT) (BEAKER) (test 16 U/L 5-34 hpgj=947) ALT (SGPT) (BEAKER) (test 6 U/L 6-55 wzkt=749) EGFR (BEAKER) (test 56 mL/min/1.73 sq m ESTIMATED GFR IS NOT ctpx=9854) ACCURATE CREATININE CLEARANCE IN PREDICTING GLOMERULAR FILTRATION RATE. ESTIMATED GFR IS NOT APPLICABLE FOR DIALYSIS PATIENTS. Specimen slightly ictericHEPATIC FUNCTION [id number] 08:10:00 Test Item Value Reference Range Comments TOTAL PROTEIN (BEAKER) (test advt=855) 6.2 gm/dL 6.0-8.3 ALBUMIN (BEAKER) (test ogwa=0587) 4.4 g/dL 3.5-5.0 BILIRUBIN TOTAL (BEAKER) (test llql=916) 4.4 mg/dL 0.2-1.2 BILIRUBIN DIRECT (BEAKER) (test mjka=215) 1.9 mg/dL 0.1-0.5 ALKALINE PHOSPHATASE (BEAKER) (test mvbg=928) 121 U/L 40-150 AST (SGOT) (BEAKER) (test cqrf=852) 16 U/L 5-34 ALT (SGPT) (BEAKER) (test yldb=445) 6 U/L 6-55 Specimen slightly ictericCALCIUM, [id number] 07:20:00 Test Item Value Reference Range Comments CALCIUM IONIZED (BEAKER) (test hlzr=869) 1.01 mmol/L 1.12-1.27 PH, BLOOD (BEAKER) (test vmzu=4874) 7.49 CBC W/PLT COUNT & AUTO [id number] 06:59:00 Test Item Value Reference Range Comments WHITE BLOOD CELL COUNT (BEAKER) (test cpyf=717) 4.1 K/ L 3.5-10.5 RED BLOOD CELL COUNT (BEAKER) (test dzsc=029) 2.62 M/ L 4.63-6.08 HEMOGLOBIN (BEAKER) (test vkpc=621) 8.2 GM/DL 13.7-17.5 HEMATOCRIT (BEAKER) (test owro=474) 24.9 % 40.1-51.0 MEAN CORPUSCULAR VOLUME (BEAKER) (test hfde=852) 95.0 fL 79.0-92.2 MEAN CORPUSCULAR HEMOGLOBIN (BEAKER) (test 31.3 pg 25.7-32.2 infk=771) MEAN CORPUSCULAR HEMOGLOBIN CONC (BEAKER) (test 32.9 GM/DL 32.3-36.5 xfxm=572) RED CELL DISTRIBUTION WIDTH (BEAKER) (test 18.6 % 11.6-14.4 fkao=394) PLATELET COUNT (BEAKER) (test lxhr=566) 38 K/CU MM 150-450 MEAN PLATELET VOLUME (BEAKER) (test eonq=305) 9.3 fL 9.4-12.4 NUCLEATED RED BLOOD CELLS (BEAKER) (test 0 /100 WBC 0-0 dzcv=686) NEUTROPHILS RELATIVE PERCENT (BEAKER) (test 66 % doss=875) LYMPHOCYTES RELATIVE PERCENT (BEAKER) (test 12 % ysmx=731) MONOCYTES RELATIVE PERCENT (BEAKER) (test 18 % vrof=573) EOSINOPHILS RELATIVE PERCENT (BEAKER) (test 3 % pbrs=303) BASOPHILS RELATIVE PERCENT (BEAKER) (test 1 % gviz=022) NEUTROPHILS ABSOLUTE COUNT (BEAKER) (test 2.74 K/ L 1.78-5.38 vlkz=913) LYMPHOCYTES ABSOLUTE COUNT (BEAKER) (test 0.49 K/ L 1.32-3.57 bxpg=333) MONOCYTES ABSOLUTE COUNT (BEAKER) (test atfk=100) 0.75 K/ L 0.30-0.82 EOSINOPHILS ABSOLUTE COUNT (BEAKER) (test 0.11 K/ L 0.04-0.54 yepv=025) BASOPHILS ABSOLUTE COUNT (BEAKER) (test cxlg=266) 0.02 K/ L 0.01-0.08 IMMATURE GRANULOCYTES-RELATIVE PERCENT (BEAKER) 1 % 0-1 (test hldc=9392) PROTHROMBIN [id number] 06:56:00 Test Item Value Reference Range Comments PROTIME (BEAKER) (test ejrb=302) 24.5 seconds 11.7-14.7 INR (BEAKER) (test keqs=552) 2.2 <=5.9 RECOMMENDED COUMADIN/WARFARIN INR THERAPY RANGESSTANDARD DOSE: 2.0 - 3.0 Includes: PROPHYLAXIS forvenous thrombosis, systemic embolization; TREATMENT for venous thrombosis and/or pulmonary embolus.HIGH RISK: Target INR is 2.5-3.5 for patients with mechanical heart valves.BODY FLUID CELL COUNT WITH [id number] 18:36:00 Test Item Value Reference Range Comments APPEARANCE FLUID (BEAKER) (test mseo=947) Hazy Clear COLOR FLUID (BEAKER) (test wznj=171) Yellow Colorless, Straw RBC FLUID (BEAKER) (test amxq=581) 2000 /cu mm <=1 ADJUSTED WBC FLUID (BEAKER) (test qpii=6903) 96 /cu mm <=5 LINING CELLS (BEAKER) (test dpzc=3101) 2 /cu mm <=1 NEUTROPHILS FLUID (BEAKER) (test ggiq=9511) 4 % LYMPHS FLUID (BEAKER) (test vlyp=241) 11 % MONO/MACROPHAGE FLUID (BEAKER) (test qokq=398) 85 % EOSINOPHILS FLUID (BEAKER) (test ljtg=319) 0 % BASO FLUID (BEAKER) (test qmdh=039) 0 % CONTAINER BODY FLUID (BEAKER) (test ocol=6095) EDTA Tube U/S, [id number] 12:49:00Limit to 4L due to AKIReason for exam:-> ascitesFINAL REPORT Indication: Ascites. Technique: Ultrasound guided paracentesis. Findings:Preliminary ultrasound confirms ascites. A safe window was identified in the midline (suprapubic). The procedure was explained to the patient and informed consent was signed. The skin was marked and prepped in standard sterile fashion. 2% lidocaine was used for local anesthesia. A 5 Yemeni needle catheter system was advanced into the peritoneal space. 3300 cc clear yellow fluid was taken off.Sample of the fluid was sent to the laboratory. Patient tolerated the procedure well. Impression: Ultrasound guided paracentesis. Signed: Aristeo Xiong [facility] Verified Date/ Time: 05/13/2018 12:49:12 Reading Location: [place] [id number] Ultrasound Reading Room 12: 49 PMCALCIUM, [id number] 05:29:00 Test Item Value Reference Range Comments CALCIUM IONIZED (BEAKER) (test sjfq=650) 1.10 mmol/L 1.12-1.27 PH, BLOOD (BEAKER) (test swyw=6680) 7.35 B-TYPE NATRIURETIC FACTOR (BNP)2018-05-13 04:48:00 Test Item Value Reference Range Comments B-TYPE NATRIURETIC PEPTIDE (BEAKER) (test 274 pg/mL 0-100 znpd=860) [id number] 04:44:00 Test Item Value Reference Range Comments PHOSPHORUS (BEAKER) (test synp=156) 3.0 mg/dL 2.3-4.7 [id number] 04:44:00 Test Item Value Reference Range Comments MAGNESIUM (BEAKER) (test isjn=253) 2.0 mg/dL 1.6-2.6 COMPREHENSIVE METABOLIC [id number] 04:44:00 Test Item Value Reference Range Comments TOTAL PROTEIN (BEAKER) 6.2 gm/dL 6.0-8.3 (test tsam=254) ALBUMIN (BEAKER) (test 4.3 g/dL 3.5-5.0 afef=8925) ALKALINE PHOSPHATASE 134 U/L 40-150 (BEAKER) (test xjku=281) BILIRUBIN TOTAL (BEAKER) 4.4 mg/dL 0.2-1.2 (test usci=908) SODIUM (BEAKER) (test 131 meq/L 136-145 velr=381) POTASSIUM (BEAKER) (test 3.7 meq/L 3.5-5.1 rwcc=366) CHLORIDE (BEAKER) (test 96 meq/L 98-107 ymhj=672) CO2 (BEAKER) (test 26 meq/L 22-29 wvqg=943) BLOOD UREA NITROGEN 20 mg/dL 7-21 (BEAKER) (test qijd=932) CREATININE (BEAKER) (test 1.60 mg/dL 0.57-1.25 bwzm=843) GLUCOSE RANDOM (BEAKER) 149 mg/dL 70-105 (test qhma=988) CALCIUM (BEAKER) (test 10.0 mg/dL 8.4-10.2 vmjw=287) AST (SGOT) (BEAKER) (test 18 U/L 5-34 wuju=009) ALT (SGPT) (BEAKER) (test 7 U/L 6-55 bsni=890) EGFR (BEAKER) (test 46 mL/min/1.73 sq m ESTIMATED GFR IS NOT xxty=5121) ACCURATE CREATININE CLEARANCE IN PREDICTING GLOMERULAR FILTRATION RATE. ESTIMATED GFR IS NOT APPLICABLE FOR DIALYSIS PATIENTS. Specimen slightly ictericHEPATIC FUNCTION [id number] 04:44:00 Test Item Value Reference Range Comments TOTAL PROTEIN (BEAKER) (test bfji=673) 6.2 gm/dL 6.0-8.3 ALBUMIN (BEAKER) (test xpah=5672) 4.3 g/dL 3.5-5.0 BILIRUBIN TOTAL (BEAKER) (test ppgs=948) 4.4 mg/dL 0.2-1.2 BILIRUBIN DIRECT (BEAKER) (test eagi=005) 2.4 mg/dL 0.1-0.5 ALKALINE PHOSPHATASE (BEAKER) (test vykf=772) 134 U/L 40-150 AST (SGOT) (BEAKER) (test rwiz=485) 18 U/L 5-34 ALT (SGPT) (BEAKER) (test tokk=361) 7 U/L 6-55 Specimen slightly ictericPROTHROMBIN [id number] 04:30:00 Test Item Value Reference Range Comments PROTIME (BEAKER) (test bpab=430) 23.8 seconds 11.7-14.7 INR (BEAKER) (test yybk=787) 2.1 <=5.9 RECOMMENDED COUMADIN/WARFARIN INR THERAPY RANGESSTANDARD DOSE: 2.0 - 3.0 Includes: PROPHYLAXIS forvenous thrombosis, systemic embolization; TREATMENT for venous thrombosis and/or pulmonary embolus.HIGH RISK: Target INR is 2.5-3.5 for patients with mechanical heart valves.CBC W/PLT COUNT & AUTO [id number] 04:19:00 Test Item Value Reference Range Comments WHITE BLOOD CELL COUNT (BEAKER) (test qzkw=743) 4.0 K/ L 3.5-10.5 RED BLOOD CELL COUNT (BEAKER) (test arpc=415) 2.60 M/ L 4.63-6.08 HEMOGLOBIN (BEAKER) (test bbhf=754) 8.2 GM/DL 13.7-17.5 HEMATOCRIT (BEAKER) (test espr=171) 24.6 % 40.1-51.0 MEAN CORPUSCULAR VOLUME (BEAKER) (test kldl=451) 94.6 fL 79.0-92.2 MEAN CORPUSCULAR HEMOGLOBIN (BEAKER) (test 31.5 pg 25.7-32.2 vwdl=902) MEAN CORPUSCULAR HEMOGLOBIN CONC (BEAKER) (test 33.3 GM/DL 32.3-36.5 azdb=203) RED CELL DISTRIBUTION WIDTH (BEAKER) (test 18.1 % 11.6-14.4 qhhn=279) PLATELET COUNT (BEAKER) (test nttq=627) 46 K/CU MM 150-450 MEAN PLATELET VOLUME (BEAKER) (test mezk=173) 9.1 fL 9.4-12.4 NUCLEATED RED BLOOD CELLS (BEAKER) (test 0 /100 WBC 0-0 tlor=512) NEUTROPHILS RELATIVE PERCENT (BEAKER) (test 62 % koiy=590) LYMPHOCYTES RELATIVE PERCENT (BEAKER) (test 13 % hhxo=839) MONOCYTES RELATIVE PERCENT (BEAKER) (test 21 % mtdp=863) EOSINOPHILS RELATIVE PERCENT (BEAKER) (test 3 % lina=571) BASOPHILS RELATIVE PERCENT (BEAKER) (test 0 % oksp=340) NEUTROPHILS ABSOLUTE COUNT (BEAKER) (test 2.49 K/ L 1.78-5.38 usyn=269) LYMPHOCYTES ABSOLUTE COUNT (BEAKER) (test 0.53 K/ L 1.32-3.57 cici=098) MONOCYTES ABSOLUTE COUNT (BEAKER) (test rari=032) 0.86 K/ L 0.30-0.82 EOSINOPHILS ABSOLUTE COUNT (BEAKER) (test 0.10 K/ L 0.04-0.54 algn=280) BASOPHILS ABSOLUTE COUNT (BEAKER) (test aelt=739) 0.01 K/ L 0.01-0.08 IMMATURE GRANULOCYTES-RELATIVE PERCENT (BEAKER) 1 % 0-1 (test woar=5893) TISSUE [id number] 14:55:00Surgical Pathology Report Case: [id number] Authorizing Provider: Karina Rain MD Collected: 05/08/2018 2000 Ordering Location: [address] Received: 05/11/2018 0837 Service Pathologist: Jesús Craig MD Specimen: Bone L3 VERTEBRAL BODYBONE BIOPSY:BONE AND BONE MARROW, NEGATIVE FOR MALIGNANCY.SEE DIAGNOSTIC COMMENT. Signing Pathologist Direct Phone Line: [phone] signed by Jesús Craig MD on 05/12/2018 [...] thesampled material may not be fully patient representative. This case was discussed with Dr. Andrea Mason, glaze handler.[id number], [id number], [id number], [id number] fracture of body thoracic vertebralL3 vertebral body [...] and its performance characteristics determined by [facility], Pathology Laboratory. It has not [...] clinical laboratory testing.RAD, CHEST, 1 VIEW, NON [id number] 13:56:00Reason for exam:->edemaShould this be performed at the bedside?->YesFINAL REPORT Chest one view compared to December 30 Discussion: Ill-defined bilateral airspace opacities are worse since the previous study although this may reflect a lesser inspiratory effort. No gross effusion or pneumothorax. Signed: Karina Pugheport Verified Date/Time : 05/12/2018 13:56:44 Reading Location: [address] Consult Reading Room CALCIUM, [id number] 06:58:00 Test Item Value Reference Range Comments CALCIUM IONIZED (BEAKER) (test tayf=489) 1.11 mmol/L 1.12-1.27 PH, BLOOD (BEAKER) (test wyaf=4106) 7.36 [id number] 06:31:00 Test Item Value Reference Range Comments PHOSPHORUS (BEAKER) (test mpub=911) 2.9 mg/dL 2.3-4.7 [id number] 06:31:00 Test Item Value Reference Range Comments MAGNESIUM (BEAKER) (test swmp=873) 1.9 mg/dL 1.6-2.6 COMPREHENSIVE METABOLIC [id number] 06:31:00 Test Item Value Reference Range Comments TOTAL PROTEIN (BEAKER) 5.8 gm/dL 6.0-8.3 (test zycj=410) ALBUMIN (BEAKER) (test 4.0 g/dL 3.5-5.0 dbze=6337) ALKALINE PHOSPHATASE 124 U/L 40-150 (BEAKER) (test godl=015) BILIRUBIN TOTAL (BEAKER) 4.3 mg/dL 0.2-1.2 (test oryi=957) SODIUM (BEAKER) (test 128 meq/L 136-145 wxib=516) POTASSIUM (BEAKER) (test 3.9 meq/L 3.5-5.1 hjyr=859) CHLORIDE (BEAKER) (test 92 meq/L 98-107 cnuo=456) CO2 (BEAKER) (test 26 meq/L 22-29 unmx=895) BLOOD UREA NITROGEN 21 mg/dL 7-21 (BEAKER) (test wepz=119) CREATININE (BEAKER) (test 1.54 mg/dL 0.57-1.25 nrwd=505) GLUCOSE RANDOM (BEAKER) 113 mg/dL 70-105 (test xcki=766) CALCIUM (BEAKER) (test 9.5 mg/dL 8.4-10.2 wbrg=962) AST (SGOT) (BEAKER) (test 16 U/L 5-34 pwej=819) ALT (SGPT) (BEAKER) (test 6 U/L 6-55 nnhi=850) EGFR (BEAKER) (test 48 mL/min/1.73 sq m ESTIMATED GFR IS NOT ypjv=9093) ACCURATE CREATININE CLEARANCE IN PREDICTING GLOMERULAR FILTRATION RATE. ESTIMATED GFR IS NOT APPLICABLE FOR DIALYSIS PATIENTS. Specimen slightly ictericHEPATIC FUNCTION [id number] 06:31:00 Test Item Value Reference Range Comments TOTAL PROTEIN (BEAKER) (test czec=848) 5.8 gm/dL 6.0-8.3 ALBUMIN (BEAKER) (test sqze=9169) 4.0 g/dL 3.5-5.0 BILIRUBIN TOTAL (BEAKER) (test iaip=934) 4.3 mg/dL 0.2-1.2 BILIRUBIN DIRECT (BEAKER) (test tiie=900) 2.3 mg/dL 0.1-0.5 ALKALINE PHOSPHATASE (BEAKER) (test slys=507) 124 U/L 40-150 AST (SGOT) (BEAKER) (test hwio=764) 16 U/L 5-34 ALT (SGPT) (BEAKER) (test qlls=724) 6 U/L 6-55 Specimen slightly ictericPROTHROMBIN [id number] 06:16:00 Test Item Value Reference Range Comments PROTIME (BEAKER) (test xoks=180) 22.3 seconds 11.7-14.7 INR (BEAKER) (test gvok=606) 2.0 <=5.9 RECOMMENDED COUMADIN/WARFARIN INR THERAPY RANGESSTANDARD DOSE: 2.0 - 3.0 Includes: PROPHYLAXIS forvenous thrombosis, systemic embolization; TREATMENT for venous thrombosis and/or pulmonary embolus.HIGH RISK: Target INR is 2.5-3.5 for patients with mechanical heart valves.CBC W/PLT COUNT & AUTO [id number] 06:00:00 Test Item Value Reference Range Comments WHITE BLOOD CELL COUNT (BEAKER) (test mxhh=109) 4.3 K/ L 3.5-10.5 RED BLOOD CELL COUNT (BEAKER) (test bcec=840) 2.68 M/ L 4.63-6.08 HEMOGLOBIN (BEAKER) (test guqp=365) 8.3 GM/DL 13.7-17.5 HEMATOCRIT (BEAKER) (test zzga=497) 25.0 % 40.1-51.0 MEAN CORPUSCULAR VOLUME (BEAKER) (test thwy=284) 93.3 fL 79.0-92.2 MEAN CORPUSCULAR HEMOGLOBIN (BEAKER) (test 31.0 pg 25.7-32.2 gzpt=307) MEAN CORPUSCULAR HEMOGLOBIN CONC (BEAKER) (test 33.2 GM/DL 32.3-36.5 lups=316) RED CELL DISTRIBUTION WIDTH (BEAKER) (test 17.4 % 11.6-14.4 pwny=492) PLATELET COUNT (BEAKER) (test ygfr=750) 57 K/CU MM 150-450 MEAN PLATELET VOLUME (BEAKER) (test nuzn=271) 9.3 fL 9.4-12.4 NUCLEATED RED BLOOD CELLS (BEAKER) (test 0 /100 WBC 0-0 xuxy=083) NEUTROPHILS RELATIVE PERCENT (BEAKER) (test 61 % qgqm=167) LYMPHOCYTES RELATIVE PERCENT (BEAKER) (test 14 % vpxe=905) MONOCYTES RELATIVE PERCENT (BEAKER) (test 17 % zghe=162) EOSINOPHILS RELATIVE PERCENT (BEAKER) (test 7 % hupt=919) BASOPHILS RELATIVE PERCENT (BEAKER) (test 1 % pmap=315) NEUTROPHILS ABSOLUTE COUNT (BEAKER) (test 2.62 K/ L 1.78-5.38 vztq=094) LYMPHOCYTES ABSOLUTE COUNT (BEAKER) (test 0.59 K/ L 1.32-3.57 bskf=571) MONOCYTES ABSOLUTE COUNT (BEAKER) (test dexy=424) 0.73 K/ L 0.30-0.82 EOSINOPHILS ABSOLUTE COUNT (BEAKER) (test 0.29 K/ L 0.04-0.54 xqca=750) BASOPHILS ABSOLUTE COUNT (BEAKER) (test epgz=612) 0.02 K/ L 0.01-0.08 IMMATURE GRANULOCYTES-RELATIVE PERCENT (BEAKER) 1 % 0-1 (test yube=3620) BLOOD [id number] 00:00:00 Test Item Value Reference Range Comments CULTURE (BEAKER) (test ukwd=7216) No growth in 5 days BLOOD [id number] 00:00:00 Test Item Value Reference Range Comments CULTURE (BEAKER) (test jyeo=9919) No growth in 5 days OSMOLALITY, [id number] 18:16:00 Test Item Value Reference Range Comments OSMOLALITY URINE (BEAKER) (test xnoz=054) 312 mOsm/kg 40-1400 BODY FLUID CELL COUNT WITH [id number] 17:17:00 Test Item Value Reference Range Comments APPEARANCE FLUID (BEAKER) (test psmj=131) Clear Clear COLOR FLUID (BEAKER) (test smvq=365) Yellow Colorless, Straw RBC FLUID (BEAKER) (test nagt=888) 150 /cu mm <=1 ADJUSTED WBC FLUID (BEAKER) (test ctkf=4069) 72 /cu mm <=5 LINING CELLS (BEAKER) (test uxgm=3173) 2 /cu mm <=1 NEUTROPHILS FLUID (BEAKER) (test mamp=6599) 3 % LYMPHS FLUID (BEAKER) (test eidp=282) 28 % MONO/MACROPHAGE FLUID (BEAKER) (test wpkb=096) 68 % EOSINOPHILS FLUID (BEAKER) (test ayus=224) 1 % BASO FLUID (BEAKER) (test owfa=447) 0 % CONTAINER BODY FLUID (BEAKER) (test dgfo=0111) EDTA Tube SODIUM, RANDOM [id number] 17:09:00 Test Item Value Reference Range Comments SODIUM URINE (BEAKER) (test osik=204) < meq/L Reference Range: No NormalsURINALYSIS W/ [id number] 17:08:00 Test Item Value Reference Range Comments COLOR (BEAKER) (test zlrz=748) Yellow CLARITY (BEAKER) (test ypbn=213) Clear SPECIFIC GRAVITY UA (BEAKER) (test ratc=461) 1.012 1.001-1.035 PH UA (BEAKER) (test wqha=943) 5.5 5.0-8.0 PROTEIN UA (BEAKER) (test styv=341) Negative Negative GLUCOSE UA (BEAKER) (test ysbn=049) Negative Negative KETONES UA (BEAKER) (test vval=206) Negative Negative BILIRUBIN UA (BEAKER) (test pxka=378) Negative Negative BLOOD UA (BEAKER) (test jptm=978) Negative Negative NITRITE UA (BEAKER) (test rupe=358) Negative Negative LEUKOCYTE ESTERASE UA (BEAKER) (test szto=450) Negative Negative UROBILINOGEN UA (BEAKER) (test nawq=929) 2.0 mg/dL 0.2-1.0 RBC UA (BEAKER) (test heta=934) 0 /HPF WBC UA (BEAKER) (test lsst=294) 1 /HPF MUCUS (BEAKER) (test hucc=4590) Rare HYALINE CASTS (BEAKER) (test csxt=744) 15 /LPF SOURCE(BEAKER) (test nhoi=4167) CREATININE, RANDOM [id number] 17:05:00 Test Item Value Reference Range Comments CREATININE URINE (BEAKER) (test trsi=073) 116.1 mg/dL Reference Range: No NormalsPROTEIN, RANDOM [id number] 17:05:00 Test Item Value Reference Range Comments PROTEIN, URINE (BEAKER) (test sigk=3596) 7 mg/dL 0-14 RAD, SPINE, THORACIC, 2 [id number] 13:53:00Reason for exam:->back pain, s/p kyphoplastyFINAL REPORT [...] Aristeo Xiong Verified Date/Time: 13:53:06 [facility], SPINE, LUMBAR, 2 OR 3 [id number] 13:53:00Reason for exam:->back pain, s/p kyphoplastyFINAL REPORT [...] Aristeo Xiong Verified Date/Time: 13:53:06 [facility] U/S, [id number] 12:52:00Limit to 4L due to AKIReason for exam:-> ascitesShould this be performed at the bedside?->NoFINAL REPORT Ultrasound guided paracentesis, 05/11/2018. Clinical History: Ascites. Sedation: None. Retail Aide: Elle. Supervisor Aluminum Fabrication: None. Estimated Blood Loss: < 1 cc. [...] was achieved with 1% lidocaine, a 5 Yemeni one-step catheter was advanced into the peritoneal cavity under ultrasound guidance. After completion of drainage, the catheter was removed. There was no evidence of complication. Patient Disposition: The patient was discharged from the ultrasound department after the paracentesis, in good condition. Impression: Successful ultrasound guided paracentesis. Signed: Vinny Almeida Verified Date/Time: 05/11/2018 12:52:57 Reading Location: [place] [id number] Ultrasound Reading Room MISCELLANEOUS LAB [id number] 10:45:00 Test Item Value Reference Range Comments SCAN RESULT (test qkkb=[id number]) [id number] 07:31:00 Test Item Value Reference Range Comments PHOSPHORUS (BEAKER) (test vqpf=652) 2.7 mg/dL 2.3-4.7 [id number] 07:31:00 Test Item Value Reference Range Comments MAGNESIUM (BEAKER) (test bjfs=437) 1.8 mg/dL 1.6-2.6 COMPREHENSIVE METABOLIC [id number] 07:31:00 Test Item Value Reference Range Comments TOTAL PROTEIN (BEAKER) 5.5 gm/dL 6.0-8.3 (test lpor=656) ALBUMIN (BEAKER) (test 3.5 g/dL 3.5-5.0 cbwa=5719) ALKALINE PHOSPHATASE 118 U/L 40-150 (BEAKER) (test cqdn=292) BILIRUBIN TOTAL (BEAKER) 5.1 mg/dL 0.2-1.2 (test gqjb=830) SODIUM (BEAKER) (test 123 meq/L 136-145 ufkv=071) POTASSIUM (BEAKER) (test 4.1 meq/L 3.5-5.1 vgyi=538) CHLORIDE (BEAKER) (test 91 meq/L 98-107 bbkr=935) CO2 (BEAKER) (test 25 meq/L 22-29 gqnl=796) BLOOD UREA NITROGEN 21 mg/dL 7-21 (BEAKER) (test tzdm=371) CREATININE (BEAKER) (test 1.59 mg/dL 0.57-1.25 cprk=379) GLUCOSE RANDOM (BEAKER) 121 mg/dL 70-105 (test lyna=994) CALCIUM (BEAKER) (test 9.4 mg/dL 8.4-10.2 xrce=556) AST (SGOT) (BEAKER) (test 17 U/L 5-34 sxuz=762) ALT (SGPT) (BEAKER) (test 8 U/L 6-55 mpsx=954) EGFR (BEAKER) (test 46 mL/min/1.73 sq m ESTIMATED GFR IS NOT euie=6767) ACCURATE CREATININE CLEARANCE IN PREDICTING GLOMERULAR FILTRATION RATE. ESTIMATED GFR IS NOT APPLICABLE FOR DIALYSIS PATIENTS. Specimen moderately ictericHEPATIC FUNCTION [id number] 07:31:00 Test Item Value Reference Range Comments TOTAL PROTEIN (BEAKER) (test ougk=082) 5.5 gm/dL 6.0-8.3 ALBUMIN (BEAKER) (test mjyl=7658) 3.5 g/dL 3.5-5.0 BILIRUBIN TOTAL (BEAKER) (test qewd=883) 5.1 mg/dL 0.2-1.2 BILIRUBIN DIRECT (BEAKER) (test yrqr=743) 2.3 mg/dL 0.1-0.5 ALKALINE PHOSPHATASE (BEAKER) (test btgg=141) 118 U/L 40-150 AST (SGOT) (BEAKER) (test jjlu=886) 17 U/L 5-34 ALT (SGPT) (BEAKER) (test yeyl=005) 8 U/L 6-55 Specimen moderately ictericPROTHROMBIN [id number] 07:17:00 Test Item Value Reference Range Comments PROTIME (BEAKER) (test nwze=308) 23.8 seconds 11.7-14.7 INR (BEAKER) (test oyac=934) 2.1 <=5.9 RECOMMENDED COUMADIN/WARFARIN INR THERAPY RANGESSTANDARD DOSE: 2.0 - 3.0 Includes: PROPHYLAXIS forvenous thrombosis, systemic embolization; TREATMENT for venous thrombosis and/or pulmonary embolus.HIGH RISK: Target INR is 2.5-3.5 for patients with mechanical heart valves.CBC W/PLT COUNT & AUTO [id number] 07:15:00 Test Item Value Reference Range Comments WHITE BLOOD CELL COUNT (BEAKER) (test utvu=637) 4.4 K/ L 3.5-10.5 RED BLOOD CELL COUNT (BEAKER) (test orby=242) 2.52 M/ L 4.63-6.08 HEMOGLOBIN (BEAKER) (test ewde=015) 7.9 GM/DL 13.7-17.5 HEMATOCRIT (BEAKER) (test radn=102) 23.7 % 40.1-51.0 MEAN CORPUSCULAR VOLUME (BEAKER) (test dflt=699) 94.0 fL 79.0-92.2 MEAN CORPUSCULAR HEMOGLOBIN (BEAKER) (test 31.3 pg 25.7-32.2 zqug=819) MEAN CORPUSCULAR HEMOGLOBIN CONC (BEAKER) (test 33.3 GM/DL 32.3-36.5 xtwt=450) RED CELL DISTRIBUTION WIDTH (BEAKER) (test 17.6 % 11.6-14.4 fenn=509) PLATELET COUNT (BEAKER) (test crvj=937) 52 K/CU MM 150-450 MEAN PLATELET VOLUME (BEAKER) (test szrh=445) 9.2 fL 9.4-12.4 NUCLEATED RED BLOOD CELLS (BEAKER) (test 0 /100 WBC 0-0 tcvv=747) NEUTROPHILS RELATIVE PERCENT (BEAKER) (test 62 % jpyf=297) LYMPHOCYTES RELATIVE PERCENT (BEAKER) (test 10 % idoi=943) MONOCYTES RELATIVE PERCENT (BEAKER) (test 19 % sgpm=265) EOSINOPHILS RELATIVE PERCENT (BEAKER) (test 8 % qpzg=409) BASOPHILS RELATIVE PERCENT (BEAKER) (test 0 % rjpj=428) NEUTROPHILS ABSOLUTE COUNT (BEAKER) (test 2.72 K/ L 1.78-5.38 wylv=173) LYMPHOCYTES ABSOLUTE COUNT (BEAKER) (test 0.42 K/ L 1.32-3.57 qcll=122) MONOCYTES ABSOLUTE COUNT (BEAKER) (test opoq=962) 0.84 K/ L 0.30-0.82 EOSINOPHILS ABSOLUTE COUNT (BEAKER) (test 0.34 K/ L 0.04-0.54 hojk=833) BASOPHILS ABSOLUTE COUNT (BEAKER) (test afvv=465) 0.00 K/ L 0.01-0.08 IMMATURE GRANULOCYTES-RELATIVE PERCENT (BEAKER) 1 % 0-1 (test ogvb=6117) CALCIUM, [id number] 07:09:00 Test Item Value Reference Range Comments CALCIUM IONIZED (BEAKER) (test cnfd=286) 1.09 mmol/L 1.12-1.27 PH, BLOOD (BEAKER) (test frsy=9730) 7.36 BASIC METABOLIC [id number] 17:49:00 Test Item Value Reference Range Comments SODIUM (BEAKER) (test 124 meq/L 136-145 wdpq=873) POTASSIUM (BEAKER) (test 3.8 meq/L 3.5-5.1 iack=546) CHLORIDE (BEAKER) (test 91 meq/L 98-107 ekgh=040) CO2 (BEAKER) (test 22 meq/L 22-29 sihe=251) BLOOD UREA NITROGEN 19 mg/dL 7-21 (BEAKER) (test djwe=740) CREATININE (BEAKER) (test 1.49 mg/dL 0.57-1.25 ljsw=062) GLUCOSE RANDOM (BEAKER) 105 mg/dL 70-105 (test riwr=911) CALCIUM (BEAKER) (test 9.3 mg/dL 8.4-10.2 qygd=514) EGFR (BEAKER) (test 50 mL/min/1.73 sq m ESTIMATED GFR IS NOT xrkj=7235) ACCURATE CREATININE CLEARANCE IN PREDICTING GLOMERULAR FILTRATION RATE. ESTIMATED GFR IS NOT APPLICABLE FOR DIALYSIS PATIENTS. Call [id number] slightly ictericCALCIUM, [id number] 06:59:00 Test Item Value Reference Range Comments CALCIUM IONIZED (BEAKER) (test koht=778) 1.00 mmol/L 1.12-1.27 PH, BLOOD (BEAKER) (test xhhf=8225) 7.47 [id number] 05:42:00 Test Item Value Reference Range Comments PHOSPHORUS (BEAKER) (test llsj=546) 2.7 mg/dL 2.3-4.7 [id number] 05:42:00 Test Item Value Reference Range Comments MAGNESIUM (BEAKER) (test ikfn=248) 1.7 mg/dL 1.6-2.6 HEPATIC FUNCTION [id number] 05:42:00 Test Item Value Reference Range Comments TOTAL PROTEIN (BEAKER) (test fuli=040) 5.2 gm/dL 6.0-8.3 ALBUMIN (BEAKER) (test lxvo=2959) 3.5 g/dL 3.5-5.0 BILIRUBIN TOTAL (BEAKER) (test dvur=896) 3.4 mg/dL 0.2-1.2 BILIRUBIN DIRECT (BEAKER) (test dogy=779) 1.8 mg/dL 0.1-0.5 ALKALINE PHOSPHATASE (BEAKER) (test xwgw=517) 106 U/L 40-150 AST (SGOT) (BEAKER) (test iytd=489) 15 U/L 5-34 ALT (SGPT) (BEAKER) (test xrrq=407) 7 U/L 6-55 Specimen slightly ictericPROTHROMBIN [id number] 05:22:00 Test Item Value Reference Range Comments PROTIME (BEAKER) (test frbn=699) 22.6 seconds 11.7-14.7 INR (BEAKER) (test gqya=790) 2.0 <=5.9 RECOMMENDED COUMADIN/WARFARIN INR THERAPY RANGESSTANDARD DOSE: 2.0 - 3.0 Includes: PROPHYLAXIS forvenous thrombosis, systemic embolization; TREATMENT for venous thrombosis and/or pulmonary embolus.HIGH RISK: Target INR is 2.5-3.5 for patients with mechanical heart valves.CBC W/PLT COUNT & AUTO [id number] 05:10:00 Test Item Value Reference Range Comments WHITE BLOOD CELL COUNT (BEAKER) (test ssml=855) 5.6 K/ L 3.5-10.5 RED BLOOD CELL COUNT (BEAKER) (test fgmi=130) 2.09 M/ L 4.63-6.08 HEMOGLOBIN (BEAKER) (test uzjv=456) 6.5 GM/DL 13.7-17.5 HEMATOCRIT (BEAKER) (test ezzd=518) 19.8 % 40.1-51.0 MEAN CORPUSCULAR VOLUME (BEAKER) (test owsm=593) 94.7 fL 79.0-92.2 MEAN CORPUSCULAR HEMOGLOBIN (BEAKER) (test 31.1 pg 25.7-32.2 ykhs=769) MEAN CORPUSCULAR HEMOGLOBIN CONC (BEAKER) (test 32.8 GM/DL 32.3-36.5 iciy=153) RED CELL DISTRIBUTION WIDTH (BEAKER) (test 17.3 % 11.6-14.4 gvzs=608) PLATELET COUNT (BEAKER) (test yfuj=590) 57 K/CU MM 150-450 MEAN PLATELET VOLUME (BEAKER) (test pqbh=465) 8.9 fL 9.4-12.4 NUCLEATED RED BLOOD CELLS (BEAKER) (test 0 /100 WBC 0-0 zjdk=788) NEUTROPHILS RELATIVE PERCENT (BEAKER) (test 71 % qhtl=433) LYMPHOCYTES RELATIVE PERCENT (BEAKER) (test 9 % etqo=677) MONOCYTES RELATIVE PERCENT (BEAKER) (test 16 % vmaz=174) EOSINOPHILS RELATIVE PERCENT (BEAKER) (test 3 % nlvl=435) BASOPHILS RELATIVE PERCENT (BEAKER) (test 0 % wwzl=072) NEUTROPHILS ABSOLUTE COUNT (BEAKER) (test 3.93 K/ L 1.78-5.38 ceiz=555) LYMPHOCYTES ABSOLUTE COUNT (BEAKER) (test 0.52 K/ L 1.32-3.57 xkbi=718) MONOCYTES ABSOLUTE COUNT (BEAKER) (test cyig=705) 0.87 K/ L 0.30-0.82 EOSINOPHILS ABSOLUTE COUNT (BEAKER) (test 0.19 K/ L 0.04-0.54 hied=413) BASOPHILS ABSOLUTE COUNT (BEAKER) (test cmar=231) 0.01 K/ L 0.01-0.08 IMMATURE GRANULOCYTES-RELATIVE PERCENT (BEAKER) 1 % 0-1 (test mnai=3066) HEPATIC FUNCTION [id number] 11:05:00 Test Item Value Reference Range Comments TOTAL PROTEIN (BEAKER) (test cvlr=605) 5.7 gm/dL 6.0-8.3 ALBUMIN (BEAKER) (test ojjj=2107) 3.9 g/dL 3.5-5.0 BILIRUBIN TOTAL (BEAKER) (test pjrq=384) 4.9 mg/dL 0.2-1.2 BILIRUBIN DIRECT (BEAKER) (test xoyh=072) 2.0 mg/dL 0.1-0.5 ALKALINE PHOSPHATASE (BEAKER) (test qiix=465) 98 U/L 40-150 AST (SGOT) (BEAKER) (test nqid=711) 19 U/L 5-34 ALT (SGPT) (BEAKER) (test mlfo=884) 8 U/L 6-55 Specimen moderately ictericBASIC METABOLIC [id number] 10:06:00 Test Item Value Reference Range Comments SODIUM (BEAKER) (test 132 meq/L 136-145 coza=702) POTASSIUM (BEAKER) (test 5.0 meq/L 3.5-5.1 psqu=997) CHLORIDE (BEAKER) (test 97 meq/L 98-107 cerf=282) CO2 (BEAKER) (test 25 meq/L 22-29 zmjh=066) BLOOD UREA NITROGEN 17 mg/dL 7-21 (BEAKER) (test swhs=342) CREATININE (BEAKER) (test 1.33 mg/dL 0.57-1.25 rqpk=098) GLUCOSE RANDOM (BEAKER) 181 mg/dL 70-105 (test mefk=094) CALCIUM (BEAKER) (test 9.4 mg/dL 8.4-10.2 qxeg=011) EGFR (BEAKER) (test 56 mL/min/1.73 sq m ESTIMATED GFR IS NOT qvvg=9787) ACCURATE CREATININE CLEARANCE IN PREDICTING GLOMERULAR FILTRATION RATE. ESTIMATED GFR IS NOT APPLICABLE FOR DIALYSIS PATIENTS. Specimen moderately ictericCBC W/PLT COUNT & AUTO [id number] 07: 45:00 Test Item Value Reference Range Comments WHITE BLOOD CELL COUNT (BEAKER) (test pszk=283) 3.4 K/ L 3.5-10.5 RED BLOOD CELL COUNT (BEAKER) (test wiil=045) 2.26 M/ L 4.63-6.08 HEMOGLOBIN (BEAKER) (test pkpm=058) 7.0 GM/DL 13.7-17.5 HEMATOCRIT (BEAKER) (test rjoy=359) 21.6 % 40.1-51.0 MEAN CORPUSCULAR VOLUME (BEAKER) (test pawj=809) 95.6 fL 79.0-92.2 MEAN CORPUSCULAR HEMOGLOBIN (BEAKER) (test 31.0 pg 25.7-32.2 ecju=876) MEAN CORPUSCULAR HEMOGLOBIN CONC (BEAKER) (test 32.4 GM/DL 32.3-36.5 olql=521) RED CELL DISTRIBUTION WIDTH (BEAKER) (test 17.3 % 11.6-14.4 bxgq=302) PLATELET COUNT (BEAKER) (test haum=127) 66 K/CU MM 150-450 MEAN PLATELET VOLUME (BEAKER) (test rqya=486) 9.8 fL 9.4-12.4 NUCLEATED RED BLOOD CELLS (BEAKER) (test 0 /100 WBC 0-0 lexb=629) NEUTROPHILS RELATIVE PERCENT (BEAKER) (test 87 % xykp=906) LYMPHOCYTES RELATIVE PERCENT (BEAKER) (test 7 % agnj=594) MONOCYTES RELATIVE PERCENT (BEAKER) (test 5 % sgkc=369) EOSINOPHILS RELATIVE PERCENT (BEAKER) (test 0 % grqn=924) BASOPHILS RELATIVE PERCENT (BEAKER) (test 0 % mwfl=159) NEUTROPHILS ABSOLUTE COUNT (BEAKER) (test 2.94 K/ L 1.78-5.38 tvlm=611) LYMPHOCYTES ABSOLUTE COUNT (BEAKER) (test 0.23 K/ L 1.32-3.57 ywgh=251) MONOCYTES ABSOLUTE COUNT (BEAKER) (test jlah=052) 0.17 K/ L 0.30-0.82 EOSINOPHILS ABSOLUTE COUNT (BEAKER) (test 0.00 K/ L 0.04-0.54 swfq=174) BASOPHILS ABSOLUTE COUNT (BEAKER) (test jbcv=942) 0.00 K/ L 0.01-0.08 IMMATURE GRANULOCYTES-RELATIVE PERCENT (BEAKER) 1 % 0-1 (test neub=8068) PROTHROMBIN [id number] 06:06:00 Test Item Value Reference Range Comments PROTIME (BEAKER) (test jqqg=381) 19.1 seconds 11.7-14.7 INR (BEAKER) (test umbg=463) 1.6 <=5.9 RECOMMENDED COUMADIN/WARFARIN INR THERAPY RANGESSTANDARD DOSE: 2.0 - 3.0 Includes: PROPHYLAXIS forvenous thrombosis, systemic embolization; TREATMENT for venous thrombosis and/or pulmonary embolus.HIGH RISK: Target INR is 2.5-3.5 for patients with mechanical heart valves.PT/[id number] 15:35:00 Test Item Value Reference Range Comments PROTIME (BEAKER) (test mrvr=532) 20.3 seconds 11.7-14.7 INR (BEAKER) (test cwwi=562) 1.7 <=5.9 PARTIAL THROMBOPLASTIN TIME (BEAKER) (test 46.2 seconds 22.5-36.0 aqww=620) RECOMMENDED COUMADIN/WARFARIN INR THERAPY RANGESSTANDARD DOSE: 2.0 - 3.0 Includes: PROPHYLAXIS forvenous thrombosis, systemic embolization; TREATMENT for venous thrombosis and/or pulmonary embolus.HIGH RISK: Target INR is 2.5-3.5 for patients with mechanical heart valves.30 minutes after administration of Gqqoryn50 minutes after administration of KcentraPROTHROMBIN TIME/[id number] 15:33:00 Test Item Value Reference Range Comments PROTIME (BEAKER) (test ztdb=638) 20.1 seconds 11.7-14.7 INR (BEAKER) (test lbzh=597) 1.7 <=5.9 RECOMMENDED COUMADIN/WARFARIN INR THERAPY RANGESSTANDARD DOSE: 2.0 - 3.0 Includes: PROPHYLAXIS forvenous thrombosis, systemic embolization; TREATMENT for venous thrombosis and/or pulmonary embolus.HIGH RISK: Target INR is 2.5-3.5 for patients with mechanical heart valves.Please draw 30 mins after Kcentra doseBODY FLUID CULTURE + GRAM [id number] 11:29:00 Test Item Value Reference Range Comments CULTURE (BEAKER) (test leqb=8992) No growth GRAM STAIN RESULT (BEAKER) (test <1+ WBCs zqan=7010) GRAM STAIN RESULT (BEAKER) (test No organisms seen vmhy=77576) CT, [id number] 10:30:00FINAL REPORT HISTORY : r/o intra abdominal [...] T11 and L2 vertebral bodies. Signed: [facility] Verified Date/Time: 05/08/2018 10:30:57 Reading Location: [facility] Diagnostic Imaging Reading Room - [place] [address] CBC W/PLT COUNT & AUTO [id number] 07:27:00 Test Item Value Reference Range Comments WHITE BLOOD CELL COUNT (BEAKER) (test jyjg=464) 3.1 K/ L 3.5-10.5 RED BLOOD CELL COUNT (BEAKER) (test zzka=563) 2.27 M/ L 4.63-6.08 HEMOGLOBIN (BEAKER) (test idid=266) 7.1 GM/DL 13.7-17.5 HEMATOCRIT (BEAKER) (test nppm=228) 21.4 % 40.1-51.0 MEAN CORPUSCULAR VOLUME (BEAKER) (test hlnt=382) 94.3 fL 79.0-92.2 MEAN CORPUSCULAR HEMOGLOBIN (BEAKER) (test 31.3 pg 25.7-32.2 fict=662) MEAN CORPUSCULAR HEMOGLOBIN CONC (BEAKER) (test 33.2 GM/DL 32.3-36.5 ymqu=428) RED CELL DISTRIBUTION WIDTH (BEAKER) (test 17.5 % 11.6-14.4 majf=111) PLATELET COUNT (BEAKER) (test wruc=904) 43 K/CU MM 150-450 MEAN PLATELET VOLUME (BEAKER) (test fgja=547) 8.7 fL 9.4-12.4 NUCLEATED RED BLOOD CELLS (BEAKER) (test 0 /100 WBC 0-0 jeki=736) NEUTROPHILS RELATIVE PERCENT (BEAKER) (test 60 % suhx=801) LYMPHOCYTES RELATIVE PERCENT (BEAKER) (test 16 % mkgx=787) MONOCYTES RELATIVE PERCENT (BEAKER) (test 17 % tpdd=414) EOSINOPHILS RELATIVE PERCENT (BEAKER) (test 7 % sjam=273) BASOPHILS RELATIVE PERCENT (BEAKER) (test 0 % qajt=283) NEUTROPHILS ABSOLUTE COUNT (BEAKER) (test 1.85 K/ L 1.78-5.38 bvgk=983) LYMPHOCYTES ABSOLUTE COUNT (BEAKER) (test 0.48 K/ L 1.32-3.57 tujd=671) MONOCYTES ABSOLUTE COUNT (BEAKER) (test vquz=235) 0.54 K/ L 0.30-0.82 EOSINOPHILS ABSOLUTE COUNT (BEAKER) (test 0.22 K/ L 0.04-0.54 kcwm=435) BASOPHILS ABSOLUTE COUNT (BEAKER) (test awfa=260) 0.00 K/ L 0.01-0.08 IMMATURE GRANULOCYTES-RELATIVE PERCENT (BEAKER) 0 % 0-1 (test rntd=4703) CBC W/PLT COUNT & AUTO [id number] 07:26:00 Test Item Value Reference Range Comments WHITE BLOOD CELL COUNT (BEAKER) (test cjtn=707) 2.9 K/ L 3.5-10.5 RED BLOOD CELL COUNT (BEAKER) (test kwof=943) 2.25 M/ L 4.63-6.08 HEMOGLOBIN (BEAKER) (test rqih=458) 7.1 GM/DL 13.7-17.5 HEMATOCRIT (BEAKER) (test agfi=488) 21.4 % 40.1-51.0 MEAN CORPUSCULAR VOLUME (BEAKER) (test xmqf=221) 95.1 fL 79.0-92.2 MEAN CORPUSCULAR HEMOGLOBIN (BEAKER) (test 31.6 pg 25.7-32.2 nlfb=863) MEAN CORPUSCULAR HEMOGLOBIN CONC (BEAKER) (test 33.2 GM/DL 32.3-36.5 whrp=329) RED CELL DISTRIBUTION WIDTH (BEAKER) (test 17.5 % 11.6-14.4 asag=190) PLATELET COUNT (BEAKER) (test fcmj=251) 44 K/CU MM 150-450 MEAN PLATELET VOLUME (BEAKER) (test tbls=763) 9.3 fL 9.4-12.4 NUCLEATED RED BLOOD CELLS (BEAKER) (test 0 /100 WBC 0-0 zznm=084) NEUTROPHILS RELATIVE PERCENT (BEAKER) (test 59 % xvqu=265) LYMPHOCYTES RELATIVE PERCENT (BEAKER) (test 16 % ejmf=395) MONOCYTES RELATIVE PERCENT (BEAKER) (test 17 % jsul=998) EOSINOPHILS RELATIVE PERCENT (BEAKER) (test 7 % otbn=094) BASOPHILS RELATIVE PERCENT (BEAKER) (test 0 % khjn=565) NEUTROPHILS ABSOLUTE COUNT (BEAKER) (test 1.72 K/ L 1.78-5.38 bjjg=840) LYMPHOCYTES ABSOLUTE COUNT (BEAKER) (test 0.46 K/ L 1.32-3.57 fvwu=078) MONOCYTES ABSOLUTE COUNT (BEAKER) (test pcik=853) 0.51 K/ L 0.30-0.82 EOSINOPHILS ABSOLUTE COUNT (BEAKER) (test 0.21 K/ L 0.04-0.54 daai=382) BASOPHILS ABSOLUTE COUNT (BEAKER) (test bnjz=984) 0.01 K/ L 0.01-0.08 IMMATURE GRANULOCYTES-RELATIVE PERCENT (BEAKER) 1 % 0-1 (test dvkl=2631) BASIC METABOLIC [id number] 07:00:00 Test Item Value Reference Range Comments SODIUM (BEAKER) (test 130 meq/L 136-145 vusu=509) POTASSIUM (BEAKER) (test 3.6 meq/L 3.5-5.1 sjlz=499) CHLORIDE (BEAKER) (test 94 meq/L 98-107 hika=231) CO2 (BEAKER) (test 27 meq/L 22-29 ofmy=694) BLOOD UREA NITROGEN 19 mg/dL 7-21 (BEAKER) (test xyaq=347) CREATININE (BEAKER) (test 1.40 mg/dL 0.57-1.25 elkm=633) GLUCOSE RANDOM (BEAKER) 111 mg/dL 70-105 (test dcpl=492) CALCIUM (BEAKER) (test 9.2 mg/dL 8.4-10.2 esef=383) EGFR (BEAKER) (test 53 mL/min/1.73 sq m ESTIMATED GFR IS NOT eqck=6252) ACCURATE CREATININE CLEARANCE IN PREDICTING GLOMERULAR FILTRATION RATE. ESTIMATED GFR IS NOT APPLICABLE FOR DIALYSIS PATIENTS. Specimen moderately ictericCOMPREHENSIVE METABOLIC [id number] 07:00:00 Test Item Value Reference Range Comments TOTAL PROTEIN (BEAKER) 5.7 gm/dL 6.0-8.3 (test orkc=533) ALBUMIN (BEAKER) (test 4.0 g/dL 3.5-5.0 qeez=5953) ALKALINE PHOSPHATASE 92 U/L 40-150 (BEAKER) (test mtul=379) BILIRUBIN TOTAL (BEAKER) 4.6 mg/dL 0.2-1.2 (test efwp=667) SODIUM (BEAKER) (test 130 meq/L 136-145 xaan=294) POTASSIUM (BEAKER) (test 3.6 meq/L 3.5-5.1 zjnk=245) CHLORIDE (BEAKER) (test 94 meq/L 98-107 aobk=489) CO2 (BEAKER) (test 27 meq/L 22-29 mmil=627) BLOOD UREA NITROGEN 19 mg/dL 7-21 (BEAKER) (test dctu=830) CREATININE (BEAKER) (test 1.40 mg/dL 0.57-1.25 vmxt=448) GLUCOSE RANDOM (BEAKER) 111 mg/dL 70-105 (test rfcy=096) CALCIUM (BEAKER) (test 9.2 mg/dL 8.4-10.2 luli=805) AST (SGOT) (BEAKER) (test 16 U/L 5-34 lzzs=057) ALT (SGPT) (BEAKER) (test 6 U/L 6-55 artx=822) EGFR (BEAKER) (test 53 mL/min/1.73 sq m ESTIMATED GFR IS NOT bwpp=1224) ACCURATE CREATININE CLEARANCE IN PREDICTING GLOMERULAR FILTRATION RATE. ESTIMATED GFR IS NOT APPLICABLE FOR DIALYSIS PATIENTS. Specimen moderately ictericHEPATIC FUNCTION [id number] 07:00:00 Test Item Value Reference Range Comments TOTAL PROTEIN (BEAKER) (test ctcj=080) 5.7 gm/dL 6.0-8.3 ALBUMIN (BEAKER) (test grdk=4510) 4.0 g/dL 3.5-5.0 BILIRUBIN TOTAL (BEAKER) (test nrjr=195) 4.6 mg/dL 0.2-1.2 BILIRUBIN DIRECT (BEAKER) (test rgjy=873) 1.8 mg/dL 0.1-0.5 ALKALINE PHOSPHATASE (BEAKER) (test cinp=918) 92 U/L 40-150 AST (SGOT) (BEAKER) (test xfzz=392) 16 U/L 5-34 ALT (SGPT) (BEAKER) (test ckvv=163) 6 U/L 6-55 Specimen moderately [id number] 06:57:00 Test Item Value Reference Range Comments PARTIAL THROMBOPLASTIN TIME (BEAKER) (test 47.9 seconds 22.5-36.0 lrfq=912) PROTHROMBIN TIME/[id number] 06:55:00 Test Item Value Reference Range Comments PROTIME (BEAKER) (test evpp=787) 23.7 seconds 11.7-14.7 INR (BEAKER) (test ogfm=407) 2.1 <=5.9 RECOMMENDED COUMADIN/WARFARIN INR THERAPY RANGESSTANDARD DOSE: 2.0 - 3.0 Includes: PROPHYLAXIS forvenous thrombosis, systemic embolization; TREATMENT for venous thrombosis and/or pulmonary embolus.HIGH RISK: Target INR is 2.5-3.5 for patients with mechanical heart valves.MR, SPINE, LUMBAR, WITHOUT [id number] 16:57:00FINAL REPORT MRI lumbar spine without contrast [...] Date/Time: 05/07/2018 16:57:00 Reading Location: [facility] Radiology Reading Room LACTIC ACID, VENOUS, WHOLE [id number] 14:13:00 Test Item Value Reference Range Comments LACTATE BLOOD VENOUS (2) (BEAKER) (test 2.6 mmol/L 0.5-2.2 rrhd=9456) Effective 02/28/2016: Units/Reference Range ChangeNew: 0.5-2.2 mmol/L Previous: 5 -20 mg/dLSpecimen slightly ictericHEMOGLOBIN AND [id number] 13:51:00 Test Item Value Reference Range Comments HEMOGLOBIN (BEAKER) (test uucz=460) 7.1 GM/DL 13.7-17.5 HEMATOCRIT (BEAKER) (test ekvi=098) 21.7 % 40.1-51.0 U/S, RENAL, [id number] 09:48:00Reason for exam:->AKIFINAL REPORT Renal ultrasound Clinical [...] MDReport Verified Date/Time: 05/07/2018 09:48:55 Reading Location: [facility] [id number] Ultrasound Reading Room Electronically signed by: REECE HAQUE MD on 09:[id number] 09:04:00 Test Item Value Reference Range Comments MAGNESIUM (BEAKER) (test aswe=641) 2.0 mg/dL 1.6-2.6 COMPREHENSIVE METABOLIC [id number] 09:04:00 Test Item Value Reference Range Comments TOTAL PROTEIN (BEAKER) 5.2 gm/dL 6.0-8.3 (test utuf=830) ALBUMIN (BEAKER) (test 3.5 g/dL 3.5-5.0 rgpl=1327) ALKALINE PHOSPHATASE 96 U/L 40-150 (BEAKER) (test mgfq=955) BILIRUBIN TOTAL (BEAKER) 4.1 mg/dL 0.2-1.2 (test mgzf=470) SODIUM (BEAKER) (test 129 meq/L 136-145 jdzf=730) POTASSIUM (BEAKER) (test 3.8 meq/L 3.5-5.1 ezmc=790) CHLORIDE (BEAKER) (test 96 meq/L 98-107 nryc=270) CO2 (BEAKER) (test 25 meq/L 22-29 tfzp=764) BLOOD UREA NITROGEN 22 mg/dL 7-21 (BEAKER) (test kcvt=818) CREATININE (BEAKER) (test 1.57 mg/dL 0.57-1.25 elqy=023) GLUCOSE RANDOM (BEAKER) 122 mg/dL 70-105 (test rxsd=319) CALCIUM (BEAKER) (test 8.9 mg/dL 8.4-10.2 nmng=038) AST (SGOT) (BEAKER) (test 15 U/L 5-34 xluz=497) ALT (SGPT) (BEAKER) (test 7 U/L 6-55 hsey=005) EGFR (BEAKER) (test 47 mL/min/1.73 sq m ESTIMATED GFR IS NOT wunr=1937) ACCURATE CREATININE CLEARANCE IN PREDICTING GLOMERULAR FILTRATION RATE. ESTIMATED GFR IS NOT APPLICABLE FOR DIALYSIS PATIENTS. Specimen moderately ictericHEPATIC FUNCTION [id number] 09:04:00 Test Item Value Reference Range Comments TOTAL PROTEIN (BEAKER) (test vvhm=814) 5.2 gm/dL 6.0-8.3 ALBUMIN (BEAKER) (test shmy=0833) 3.5 g/dL 3.5-5.0 BILIRUBIN TOTAL (BEAKER) (test dazb=513) 4.1 mg/dL 0.2-1.2 BILIRUBIN DIRECT (BEAKER) (test kwvw=387) 1.8 mg/dL 0.1-0.5 ALKALINE PHOSPHATASE (BEAKER) (test uzhc=730) 96 U/L 40-150 AST (SGOT) (BEAKER) (test mzqs=812) 15 U/L 5-34 ALT (SGPT) (BEAKER) (test ziax=391) 7 U/L 6-55 Specimen moderately ictericCBC W/PLT COUNT & AUTO [id number] 08: 26:00 Test Item Value Reference Range Comments WHITE BLOOD CELL COUNT (BEAKER) (test cdpv=515) 2.7 K/ L 3.5-10.5 RED BLOOD CELL COUNT (BEAKER) (test afkn=441) 2.13 M/ L 4.63-6.08 HEMOGLOBIN (BEAKER) (test kets=420) 6.8 GM/DL 13.7-17.5 HEMATOCRIT (BEAKER) (test pgyf=343) 19.5 % 40.1-51.0 MEAN CORPUSCULAR VOLUME (BEAKER) (test rczp=616) 91.5 fL 79.0-92.2 MEAN CORPUSCULAR HEMOGLOBIN (BEAKER) (test 31.9 pg 25.7-32.2 fobf=008) MEAN CORPUSCULAR HEMOGLOBIN CONC (BEAKER) (test 34.9 GM/DL 32.3-36.5 etck=638) RED CELL DISTRIBUTION WIDTH (BEAKER) (test 17.5 % 11.6-14.4 jatg=713) PLATELET COUNT (BEAKER) (test uyxm=382) 52 K/CU MM 150-450 MEAN PLATELET VOLUME (BEAKER) (test xiyq=145) 9.1 fL 9.4-12.4 NUCLEATED RED BLOOD CELLS (BEAKER) (test 0 /100 WBC 0-0 pwme=653) NEUTROPHILS RELATIVE PERCENT (BEAKER) (test 62 % moxh=265) LYMPHOCYTES RELATIVE PERCENT (BEAKER) (test 16 % fypd=189) MONOCYTES RELATIVE PERCENT (BEAKER) (test 17 % qhup=472) EOSINOPHILS RELATIVE PERCENT (BEAKER) (test 4 % vkhc=432) BASOPHILS RELATIVE PERCENT (BEAKER) (test 0 % volm=986) NEUTROPHILS ABSOLUTE COUNT (BEAKER) (test 1.66 K/ L 1.78-5.38 pkoo=271) LYMPHOCYTES ABSOLUTE COUNT (BEAKER) (test 0.43 K/ L 1.32-3.57 wwfy=304) MONOCYTES ABSOLUTE COUNT (BEAKER) (test jqoo=053) 0.44 K/ L 0.30-0.82 EOSINOPHILS ABSOLUTE COUNT (BEAKER) (test 0.11 K/ L 0.04-0.54 swkv=905) BASOPHILS ABSOLUTE COUNT (BEAKER) (test xkht=582) 0.00 K/ L 0.01-0.08 IMMATURE GRANULOCYTES-RELATIVE PERCENT (BEAKER) 1 % 0-1 (test oibl=8796) PROTHROMBIN [id number] 08:08:00 Test Item Value Reference Range Comments PROTIME (BEAKER) (test rrsk=166) 28.3 seconds 11.7-14.7 INR (BEAKER) (test yogj=388) 2.7 <=5.9 RECOMMENDED COUMADIN/WARFARIN INR THERAPY RANGESSTANDARD DOSE: 2.0 - 3.0 Includes: PROPHYLAXIS forvenous thrombosis, systemic embolization; TREATMENT for venous thrombosis and/or pulmonary embolus.HIGH RISK: Target INR is 2.5-3.5 for patients with mechanical heart valves.[id number] 19:47:00 Test Item Value Reference Range Comments SODIUM (BEAKER) (test znse=751) 129 meq/L 136-145 POTASSIUM (BEAKER) (test hjkb=729) 4.6 meq/L 3.5-5.1 CHLORIDE (BEAKER) (test vuzl=732) 96 meq/L 98-107 CO2 (BEAKER) (test tbjz=803) 22 meq/L 22-29 Call [id number] AND [id number] 19:27:00 Test Item Value Reference Range Comments HEMOGLOBIN (BEAKER) (test ehrx=820) 7.1 GM/DL 13.7-17.5 HEMATOCRIT (BEAKER) (test tsiy=112) 21.4 % 40.1-51.0 Draw after transfusion of 1u RBC, notify hospitalist if Hgb remains less than 7.0HEMOGLOBIN AND [id number] 11:52:00 Test Item Value Reference Range Comments HEMOGLOBIN (BEAKER) (test gsap=675) 6.3 GM/DL 13.7-17.5 HEMATOCRIT (BEAKER) (test rkmf=874) 18.9 % 40.1-51.0 Notify Hepatology if Hgb< 7.0YUNIOR Sandoval PA-CPager#: .BASIC METABOLIC [id number] 05:55:00 Test Item Value Reference Range Comments SODIUM (BEAKER) (test 129 meq/L 136-145 rupq=533) POTASSIUM (BEAKER) (test 5.2 meq/L 3.5-5.1 rizo=683) CHLORIDE (BEAKER) (test 97 meq/L 98-107 ornl=493) CO2 (BEAKER) (test 22 meq/L 22-29 kwqp=958) BLOOD UREA NITROGEN 28 mg/dL 7-21 (BEAKER) (test mjbl=331) CREATININE (BEAKER) (test 1.95 mg/dL 0.57-1.25 zpbl=574) GLUCOSE RANDOM (BEAKER) 102 mg/dL 70-105 (test preo=926) CALCIUM (BEAKER) (test 9.4 mg/dL 8.4-10.2 pgqu=072) EGFR (BEAKER) (test 36 mL/min/1.73 sq m ESTIMATED GFR IS NOT faqf=3310) ACCURATE CREATININE CLEARANCE IN PREDICTING GLOMERULAR FILTRATION RATE. ESTIMATED GFR IS NOT APPLICABLE FOR DIALYSIS PATIENTS. Specimen slightly ictericHEPATIC FUNCTION [id number] 05:55:00 Test Item Value Reference Range Comments TOTAL PROTEIN (BEAKER) (test jbfk=685) 5.6 gm/dL 6.0-8.3 ALBUMIN (BEAKER) (test czbi=5093) 3.4 g/dL 3.5-5.0 BILIRUBIN TOTAL (BEAKER) (test mjdt=858) 3.7 mg/dL 0.2-1.2 BILIRUBIN DIRECT (BEAKER) (test kcjz=865) 2.5 mg/dL 0.1-0.5 ALKALINE PHOSPHATASE (BEAKER) (test lvic=020) 108 U/L 40-150 AST (SGOT) (BEAKER) (test htuy=254) 17 U/L 5-34 ALT (SGPT) (BEAKER) (test xghu=887) 7 U/L 6-55 Specimen slightly ictericCBC W/PLT COUNT & AUTO [id number] 05:42 :00 Test Item Value Reference Range Comments WHITE BLOOD CELL COUNT (BEAKER) (test hpjt=261) 3.7 K/ L 3.5-10.5 RED BLOOD CELL COUNT (BEAKER) (test tqee=055) 2.10 M/ L 4.63-6.08 HEMOGLOBIN (BEAKER) (test eeds=256) 6.5 GM/DL 13.7-17.5 HEMATOCRIT (BEAKER) (test cxft=890) 19.8 % 40.1-51.0 MEAN CORPUSCULAR VOLUME (BEAKER) (test xojs=600) 94.3 fL 79.0-92.2 MEAN CORPUSCULAR HEMOGLOBIN (BEAKER) (test 31.0 pg 25.7-32.2 axgy=893) MEAN CORPUSCULAR HEMOGLOBIN CONC (BEAKER) (test 32.8 GM/DL 32.3-36.5 klki=998) RED CELL DISTRIBUTION WIDTH (BEAKER) (test 16.4 % 11.6-14.4 nfoc=342) PLATELET COUNT (BEAKER) (test qwfk=935) 54 K/CU MM 150-450 MEAN PLATELET VOLUME (BEAKER) (test kgie=732) 9.8 fL 9.4-12.4 NUCLEATED RED BLOOD CELLS (BEAKER) (test 0 /100 WBC 0-0 ebzw=046) NEUTROPHILS RELATIVE PERCENT (BEAKER) (test 62 % iihp=107) LYMPHOCYTES RELATIVE PERCENT (BEAKER) (test 15 % ltsk=811) MONOCYTES RELATIVE PERCENT (BEAKER) (test 18 % lxha=099) EOSINOPHILS RELATIVE PERCENT (BEAKER) (test 3 % ssfe=722) BASOPHILS RELATIVE PERCENT (BEAKER) (test 0 % soch=664) NEUTROPHILS ABSOLUTE COUNT (BEAKER) (test 2.27 K/ L 1.78-5.38 pqtg=557) LYMPHOCYTES ABSOLUTE COUNT (BEAKER) (test 0.56 K/ L 1.32-3.57 lwoc=953) MONOCYTES ABSOLUTE COUNT (BEAKER) (test zagx=069) 0.66 K/ L 0.30-0.82 EOSINOPHILS ABSOLUTE COUNT (BEAKER) (test 0.12 K/ L 0.04-0.54 gtsl=650) BASOPHILS ABSOLUTE COUNT (BEAKER) (test bnwz=083) 0.01 K/ L 0.01-0.08 IMMATURE GRANULOCYTES-RELATIVE PERCENT (BEAKER) 1 % 0-1 (test mkpy=9656) PROTHROMBIN [id number] 05:34:00 Test Item Value Reference Range Comments PROTIME (BEAKER) (test icls=619) 21.7 seconds 11.7-14.7 INR (BEAKER) (test kyfx=661) 1.9 <=5.9 RECOMMENDED COUMADIN/WARFARIN INR THERAPY RANGESSTANDARD DOSE: 2.0 - 3.0 Includes: PROPHYLAXIS forvenous thrombosis, systemic embolization; TREATMENT for venous thrombosis and/or pulmonary embolus.HIGH RISK: Target INR is 2.5-3.5 for patients with mechanical heart valves.EOSINOPHIL SMEAR, [id number] 21: 51:00 Test Item Value Reference Range Comments EOSINOPHIL SMEAR, URINE (BEAKER) (test No EOS seen No EOS seen llzd=5307) BODY FLUID CELL COUNT WITH [id number] 21:42:00 Test Item Value Reference Range Comments APPEARANCE FLUID (BEAKER) (test gkkr=462) Hazy Clear COLOR FLUID (BEAKER) (test umkz=361) Yellow Colorless, Straw RBC FLUID (BEAKER) (test sskj=120) 70 /cu mm <=1 ADJUSTED WBC FLUID (BEAKER) (test bxki=2140) 44 /cu mm <=5 LINING CELLS (BEAKER) (test mfmu=1995) 8 /cu mm <=1 NEUTROPHILS FLUID (BEAKER) (test bhzt=5752) 0 % LYMPHS FLUID (BEAKER) (test gfbt=027) 11 % MONO/MACROPHAGE FLUID (BEAKER) (test xlds=030) 89 % EOSINOPHILS FLUID (BEAKER) (test yvbd=824) 0 % BASO FLUID (BEAKER) (test kvch=320) 0 % CONTAINER BODY FLUID (BEAKER) (test kcoq=8247) EDTA Tube OSMOLALITY, [id number] 19:46:00 Test Item Value Reference Range Comments OSMOLALITY URINE (BEAKER) (test xnpv=974) 355 mOsm/kg 40-1400 SODIUM, RANDOM [id number] 19:35:00 Test Item Value Reference Range Comments SODIUM URINE (BEAKER) (test livc=331) < meq/L Reference Range: No NormalsPROTEIN, RANDOM [id number] 19:27:00 Test Item Value Reference Range Comments PROTEIN, URINE (BEAKER) (test cucv=7153) 7 mg/dL 0-14 CREATININE, RANDOM [id number] 19:25:00 Test Item Value Reference Range Comments CREATININE URINE (BEAKER) (test zfxn=337) 150.3 mg/dL Reference Range: No [id number] 16:26:00 Test Item Value Reference Range Comments PREALBUMIN (BEAKER) (test vyqz=134) 5 mg/dL 14-45 Listed for OLT - Nutrition Surveillance ([facility] Hepatology Transplant Team)U/S, [id number] 14:56:00Reason for exam:->ascites - limit to 5L [...] MDReport Verified Date/Time: 05/05/2018 14:56:27 Reading Location: [facility] [id number] Ultrasound Reading Room BASIC METABOLIC [id number] 09:36:00 Test Item Value Reference Range Comments SODIUM (BEAKER) (test 125 meq/L 136-145 dvyb=536) POTASSIUM (BEAKER) (test 4.2 meq/L 3.5-5.1 wsxp=841) CHLORIDE (BEAKER) (test 95 meq/L 98-107 kmpv=230) CO2 (BEAKER) (test 23 meq/L 22-29 hncw=111) BLOOD UREA NITROGEN 29 mg/dL 7-21 (BEAKER) (test ghhr=263) CREATININE (BEAKER) (test 2.01 mg/dL 0.57-1.25 vhoj=262) GLUCOSE RANDOM (BEAKER) 112 mg/dL 70-105 (test zoco=411) CALCIUM (BEAKER) (test 9.2 mg/dL 8.4-10.2 ispl=542) EGFR (BEAKER) (test 35 mL/min/1.73 sq m ESTIMATED GFR IS NOT uawu=7520) ACCURATE CREATININE CLEARANCE IN PREDICTING GLOMERULAR FILTRATION RATE. ESTIMATED GFR IS NOT APPLICABLE FOR DIALYSIS PATIENTS. Specimen slightly ictericHEPATIC FUNCTION [id number] 09:36:00 Test Item Value Reference Range Comments TOTAL PROTEIN (BEAKER) (test qgub=378) 5.3 gm/dL 6.0-8.3 ALBUMIN (BEAKER) (test lptr=5591) 3.0 g/dL 3.5-5.0 BILIRUBIN TOTAL (BEAKER) (test ygde=492) 4.1 mg/dL 0.2-1.2 BILIRUBIN DIRECT (BEAKER) (test smez=779) 2.8 mg/dL 0.1-0.5 ALKALINE PHOSPHATASE (BEAKER) (test hyfe=805) 115 U/L 40-150 AST (SGOT) (BEAKER) (test krxj=262) 20 U/L 5-34 ALT (SGPT) (BEAKER) (test bvhf=920) 9 U/L 6-55 Specimen slightly ictericCBC W/PLT COUNT & AUTO [id number] 09:28 :00 Test Item Value Reference Range Comments WHITE BLOOD CELL COUNT (BEAKER) (test xyse=368) 4.4 K/ L 3.5-10.5 RED BLOOD CELL COUNT (BEAKER) (test ywus=067) 2.20 M/ L 4.63-6.08 HEMOGLOBIN (BEAKER) (test dwjj=338) 7.1 GM/DL 13.7-17.5 HEMATOCRIT (BEAKER) (test wnfe=152) 21.1 % 40.1-51.0 MEAN CORPUSCULAR VOLUME (BEAKER) (test bmfn=936) 95.9 fL 79.0-92.2 MEAN CORPUSCULAR HEMOGLOBIN (BEAKER) (test 32.3 pg 25.7-32.2 elxt=011) MEAN CORPUSCULAR HEMOGLOBIN CONC (BEAKER) (test 33.6 GM/DL 32.3-36.5 xdop=368) RED CELL DISTRIBUTION WIDTH (BEAKER) (test 16.7 % 11.6-14.4 xseb=267) PLATELET COUNT (BEAKER) (test xnbj=310) 60 K/CU MM 150-450 MEAN PLATELET VOLUME (BEAKER) (test oznc=492) 9.7 fL 9.4-12.4 NUCLEATED RED BLOOD CELLS (BEAKER) (test 0 /100 WBC 0-0 kstf=113) NEUTROPHILS RELATIVE PERCENT (BEAKER) (test 71 % zpzq=667) LYMPHOCYTES RELATIVE PERCENT (BEAKER) (test 9 % xqgf=229) MONOCYTES RELATIVE PERCENT (BEAKER) (test 16 % jbxd=041) EOSINOPHILS RELATIVE PERCENT (BEAKER) (test 3 % wqpl=867) BASOPHILS RELATIVE PERCENT (BEAKER) (test 0 % frep=166) NEUTROPHILS ABSOLUTE COUNT (BEAKER) (test 3.10 K/ L 1.78-5.38 qmcu=248) LYMPHOCYTES ABSOLUTE COUNT (BEAKER) (test 0.39 K/ L 1.32-3.57 uaad=083) MONOCYTES ABSOLUTE COUNT (BEAKER) (test sxdq=366) 0.69 K/ L 0.30-0.82 EOSINOPHILS ABSOLUTE COUNT (BEAKER) (test 0.12 K/ L 0.04-0.54 aojw=658) BASOPHILS ABSOLUTE COUNT (BEAKER) (test ourv=938) 0.01 K/ L 0.01-0.08 IMMATURE GRANULOCYTES-RELATIVE PERCENT (BEAKER) 1 % 0-1 (test sywb=0577) PROTHROMBIN [id number] 09:07:00 Test Item Value Reference Range Comments PROTIME (BEAKER) (test hwgd=095) 21.6 seconds 11.7-14.7 INR (BEAKER) (test eonw=086) 1.9 <=5.9 RECOMMENDED COUMADIN/WARFARIN INR THERAPY RANGESSTANDARD DOSE: 2.0 - 3.0 Includes: PROPHYLAXIS forvenous thrombosis, systemic embolization; TREATMENT for venous thrombosis and/or pulmonary embolus.HIGH RISK: Target INR is 2.5-3.5 for patients with mechanical heart valves.[id number] 13:59:00 Test Item Value Reference Range Comments POC-CREATININE (BEAKER) 2.0 mg/dL 0.6-1.3 TESTED AT [address] (test mvdv=2328) [facility] [address] POC-EGFR (BEAKER) (test 35 mL/min/1.73M2 ihuj=1229) PET/CT, LIMITED AREA [id number] 08:25:00PET/ CT ChestReason for Exam:-> Elongated nodular [...] thighsAdditional imaging: NoneSerum blood glucose: 119CPT Code: 89921 FINDINGS:Head and Neck: There is no trisha [...] MDReport Verified Date/Time: 03/31/2018 08:25:09 POCT- GLUCOSE [id number] 14:54:00 Test Item Value Reference Range Comments POC-GLUCOSE METER (BEAKER) 119 mg/dL 70-110 TESTED AT [facility] [address] [facility] (test taij=7072) [facility] [address] COMPREHENSIVE METABOLIC [id number] 16:49:00 Test Item Value Reference Range Comments TOTAL PROTEIN (BEAKER) 6.2 gm/dL 6.0-8.3 (test gkbd=890) ALBUMIN (BEAKER) (test 3.4 g/dL 3.5-5.0 achj=0195) ALKALINE PHOSPHATASE 139 U/L 40-150 (BEAKER) (test aary=702) BILIRUBIN TOTAL (BEAKER) 4.0 mg/dL 0.2-1.2 (test rpjn=327) SODIUM (BEAKER) (test 129 meq/L 136-145 mavs=585) POTASSIUM (BEAKER) (test 4.3 meq/L 3.5-5.1 kvfu=168) CHLORIDE (BEAKER) (test 96 meq/L 98-107 ouct=502) CO2 (BEAKER) (test 22 meq/L 22-29 lifn=196) BLOOD UREA NITROGEN 28 mg/dL 7-21 (BEAKER) (test vhwz=806) CREATININE (BEAKER) (test 1.51 mg/dL 0.57-1.25 wimi=827) GLUCOSE RANDOM (BEAKER) 89 mg/dL 70-105 (test krgv=421) CALCIUM (BEAKER) (test 9.5 mg/dL 8.4-10.2 hoef=480) AST (SGOT) (BEAKER) (test 26 U/L 5-34 yrwy=570) ALT (SGPT) (BEAKER) (test 11 U/L 6-55 uzxg=704) EGFR (BEAKER) (test 49 mL/min/1.73 sq m ESTIMATED GFR IS NOT xjmc=3839) ACCURATE CREATININE CLEARANCE IN PREDICTING GLOMERULAR FILTRATION RATE. ESTIMATED GFR IS NOT APPLICABLE FOR DIALYSIS PATIENTS. Specimen slightly ictericBILIRUBIN, [id number] 16:49:00 Test Item Value Reference Range Comments BILIRUBIN DIRECT (BEAKER) (test htst=046) 2.8 mg/dL 0.1-0.5 PROTHROMBIN [id number] 16:36:00 Test Item Value Reference Range Comments PROTIME (BEAKER) (test mqtf=979) 19.0 seconds 11.7-14.7 INR (BEAKER) (test wvcq=076) 1.6 <=5.9 RECOMMENDED COUMADIN/WARFARIN INR THERAPY RANGESSTANDARD DOSE: 2.0 - 3.0 Includes: PROPHYLAXIS forvenous thrombosis, systemic embolization; TREATMENT for venous thrombosis and/or pulmonary embolus.HIGH RISK: Target INR is 2.5-3.5 for patients with mechanical heart valves.CBC W/PLT COUNT & AUTO [id number] 16:27:00 Test Item Value Reference Range Comments WHITE BLOOD CELL COUNT (BEAKER) (test rtds=444) 6.0 K/ L 3.5-10.5 RED BLOOD CELL COUNT (BEAKER) (test pcwh=390) 2.74 M/ L 4.63-6.08 HEMOGLOBIN (BEAKER) (test abfr=367) 9.3 GM/DL 13.7-17.5 HEMATOCRIT (BEAKER) (test roik=329) 27.6 % 40.1-51.0 MEAN CORPUSCULAR VOLUME (BEAKER) (test eacp=627) 100.7 fL 79.0-92.2 MEAN CORPUSCULAR HEMOGLOBIN (BEAKER) (test 33.9 pg 25.7-32.2 ceco=333) MEAN CORPUSCULAR HEMOGLOBIN CONC (BEAKER) (test 33.7 GM/DL 32.3-36.5 crqr=070) RED CELL DISTRIBUTION WIDTH (BEAKER) (test 14.9 % 11.6-14.4 durq=523) PLATELET COUNT (BEAKER) (test apto=287) 96 K/CU MM 150-450 MEAN PLATELET VOLUME (BEAKER) (test nimi=959) 9.4 fL 9.4-12.4 NUCLEATED RED BLOOD CELLS (BEAKER) (test 0 /100 WBC 0-0 acrw=909) NEUTROPHILS RELATIVE PERCENT (BEAKER) (test 64 % gfuo=237) LYMPHOCYTES RELATIVE PERCENT (BEAKER) (test 11 % xqbm=575) MONOCYTES RELATIVE PERCENT (BEAKER) (test 16 % afvr=078) EOSINOPHILS RELATIVE PERCENT (BEAKER) (test 7 % tfhn=201) BASOPHILS RELATIVE PERCENT (BEAKER) (test 1 % svuf=631) NEUTROPHILS ABSOLUTE COUNT (BEAKER) (test 3.83 K/ L 1.78-5.38 wkxt=665) LYMPHOCYTES ABSOLUTE COUNT (BEAKER) (test 0.66 K/ L 1.32-3.57 tyej=061) MONOCYTES ABSOLUTE COUNT (BEAKER) (test apyr=477) 0.95 K/ L 0.30-0.82 EOSINOPHILS ABSOLUTE COUNT (BEAKER) (test 0.41 K/ L 0.04-0.54 khkf=831) BASOPHILS ABSOLUTE COUNT (BEAKER) (test syjm=182) 0.03 K/ L 0.01-0.08 IMMATURE GRANULOCYTES-RELATIVE PERCENT (BEAKER) 2 % 0-1 (test prjn=9970) BASIC METABOLIC [id number] 08:26:00 Test Item Value Reference Range Comments SODIUM (BEAKER) (test 127 meq/L 136-145 fkuw=294) POTASSIUM (BEAKER) (test 4.3 meq/L 3.5-5.1 lynw=199) CHLORIDE (BEAKER) (test 96 meq/L 98-107 klgq=956) CO2 (BEAKER) (test 23 meq/L 22-29 zuvc=404) BLOOD UREA NITROGEN 25 mg/dL 7-21 (BEAKER) (test pjez=301) CREATININE (BEAKER) (test 1.46 mg/dL 0.57-1.25 gubc=957) GLUCOSE RANDOM (BEAKER) 130 mg/dL 70-105 (test xizg=450) CALCIUM (BEAKER) (test 9.1 mg/dL 8.4-10.2 iqyr=389) EGFR (BEAKER) (test 51 mL/min/1.73 sq m ESTIMATED GFR IS NOT khyz=8645) ACCURATE CREATININE CLEARANCE IN PREDICTING GLOMERULAR FILTRATION RATE. ESTIMATED GFR IS NOT APPLICABLE FOR DIALYSIS PATIENTS. Specimen slightly ictericCBC (HEMOGRAM ONLY)2018-02-23 08:06:00 Test Item Value Reference Range Comments WHITE BLOOD CELL COUNT (BEAKER) (test vube=989) 5.4 K/ L 3.5-10.5 RED BLOOD CELL COUNT (BEAKER) (test auqs=873) 2.64 M/ L 4.63-6.08 HEMOGLOBIN (BEAKER) (test qpqu=883) 8.8 GM/DL 13.7-17.5 HEMATOCRIT (BEAKER) (test jzvi=985) 26.2 % 40.1-51.0 MEAN CORPUSCULAR VOLUME (BEAKER) (test jtvz=982) 99.2 fL 79.0-92.2 MEAN CORPUSCULAR HEMOGLOBIN (BEAKER) (test 33.3 pg 25.7-32.2 hloa=977) MEAN CORPUSCULAR HEMOGLOBIN CONC (BEAKER) (test 33.6 GM/DL 32.3-36.5 tcfj=807) RED CELL DISTRIBUTION WIDTH (BEAKER) (test 16.2 % 11.6-14.4 abrd=149) PLATELET COUNT (BEAKER) (test fpbu=582) 100 K/CU MM 150-450 MEAN PLATELET VOLUME (BEAKER) (test uqxv=972) 8.7 fL 9.4-12.4 NUCLEATED RED BLOOD CELLS (BEAKER) (test 0 /100 WBC 0-0 aqnd=547) COMPREHENSIVE METABOLIC [id number] 15:06:00 Test Item Value Reference Range Comments TOTAL PROTEIN (BEAKER) 6.5 gm/dL 6.0-8.3 (test bmkj=437) ALBUMIN (BEAKER) (test 3.7 g/dL 3.5-5.0 cixa=7049) ALKALINE PHOSPHATASE 135 U/L 40-150 (BEAKER) (test sljc=597) BILIRUBIN TOTAL (BEAKER) 4.5 mg/dL 0.2-1.2 (test ayuu=436) SODIUM (BEAKER) (test 131 meq/L 136-145 bkpc=052) POTASSIUM (BEAKER) (test 5.8 meq/L 3.5-5.1 qkvr=483) CHLORIDE (BEAKER) (test 103 meq/L 98-107 jjri=224) CO2 (BEAKER) (test 24 meq/L 22-29 ugqr=631) BLOOD UREA NITROGEN 27 mg/dL 7-21 (BEAKER) (test usgz=050) CREATININE (BEAKER) (test 1.17 mg/dL 0.57-1.25 puoi=564) GLUCOSE RANDOM (BEAKER) 111 mg/dL 70-105 (test amuw=989) CALCIUM (BEAKER) (test 11.0 mg/dL 8.4-10.2 jtag=619) AST (SGOT) (BEAKER) (test 28 U/L 5-34 vipi=989) ALT (SGPT) (BEAKER) (test 19 U/L 6-55 vqey=200) EGFR (BEAKER) (test 65 mL/min/1.73 sq m ESTIMATED GFR IS NOT wgdm=0390) ACCURATE CREATININE CLEARANCE IN PREDICTING GLOMERULAR FILTRATION RATE. ESTIMATED GFR IS NOT APPLICABLE FOR DIALYSIS PATIENTS. Specimen slightly ictericBILIRUBIN, [id number] 15:06:00 Test Item Value Reference Range Comments BILIRUBIN DIRECT (BEAKER) (test pdko=446) 3.0 mg/dL 0.1-0.5 PROTHROMBIN [id number] 14:42:00 Test Item Value Reference Range Comments PROTIME (BEAKER) (test aldq=227) 19.1 seconds 11.7-14.7 INR (BEAKER) (test lzsl=597) 1.6 <=5.9 RECOMMENDED COUMADIN/WARFARIN INR THERAPY RANGESSTANDARD DOSE: 2.0 - 3.0 Includes: PROPHYLAXIS forvenous thrombosis, systemic embolization; TREATMENT for venous thrombosis and/or pulmonary embolus.HIGH RISK: Target INR is 2.5-3.5 for patients with mechanical heart valves.CBC W/PLT COUNT & AUTO [id number] 14:36:00 Test Item Value Reference Range Comments WHITE BLOOD CELL COUNT (BEAKER) (test lrbu=084) 5.5 K/ L 3.5-10.5 RED BLOOD CELL COUNT (BEAKER) (test bquh=924) 2.84 M/ L 4.63-6.08 HEMOGLOBIN (BEAKER) (test clwx=452) 9.5 GM/DL 13.7-17.5 HEMATOCRIT (BEAKER) (test zkso=324) 28.8 % 40.1-51.0 MEAN CORPUSCULAR VOLUME (BEAKER) (test umva=452) 101.4 fL 79.0-92.2 MEAN CORPUSCULAR HEMOGLOBIN (BEAKER) (test 33.5 pg 25.7-32.2 ohxb=164) MEAN CORPUSCULAR HEMOGLOBIN CONC (BEAKER) (test 33.0 GM/DL 32.3-36.5 gzrf=201) RED CELL DISTRIBUTION WIDTH (BEAKER) (test 19.4 % 11.6-14.4 qbyw=769) PLATELET COUNT (BEAKER) (test sypz=990) 65 K/CU MM 150-450 MEAN PLATELET VOLUME (BEAKER) (test fbga=160) 8.8 fL 9.4-12.4 NUCLEATED RED BLOOD CELLS (BEAKER) (test 0 /100 WBC 0-0 ezxv=664) NEUTROPHILS RELATIVE PERCENT (BEAKER) (test 66 % byye=385) LYMPHOCYTES RELATIVE PERCENT (BEAKER) (test 14 % skhy=029) MONOCYTES RELATIVE PERCENT (BEAKER) (test 15 % xkuh=390) EOSINOPHILS RELATIVE PERCENT (BEAKER) (test 4 % tust=798) BASOPHILS RELATIVE PERCENT (BEAKER) (test 0 % tlok=966) NEUTROPHILS ABSOLUTE COUNT (BEAKER) (test 3.58 K/ L 1.78-5.38 jtuw=666) LYMPHOCYTES ABSOLUTE COUNT (BEAKER) (test 0.78 K/ L 1.32-3.57 xeuy=593) MONOCYTES ABSOLUTE COUNT (BEAKER) (test jzid=060) 0.79 K/ L 0.30-0.82 EOSINOPHILS ABSOLUTE COUNT (BEAKER) (test 0.23 K/ L 0.04-0.54 locb=002) BASOPHILS ABSOLUTE COUNT (BEAKER) (test zbsj=253) 0.02 K/ L 0.01-0.08 IMMATURE GRANULOCYTES-RELATIVE PERCENT (BEAKER) 1 % 0-1 (test vhfk=9594) RAD, KNEE, COMPLETE (4 VIEWS), [id number] 11:15:00Reason for exam:->FALL , PAINFINAL REPORT Bilateral [...] Quezada Verified Date/Time: 01/06/2018 11:15:08 Reading Location: [facility] Reading Room RAD, KNEE, COMPLETE (4 VIEWS), [id number] 11:15:00Reason for exam:->FALL, PAINFINAL REPORT Bilateral knee [...] MDRstanort Verified Date/Time: 01/06/2018 11:15:08 Reading Location: [facility] Reading Room CBC W/PLT COUNT & AUTO [id number] 10: 58:00 Test Item Value Reference Range Comments WHITE BLOOD CELL COUNT (BEAKER) (test tyjy=022) 2.9 K/ L 3.5-10.5 RED BLOOD CELL COUNT (BEAKER) (test ybjg=483) 2.27 M/ L 4.63-6.08 HEMOGLOBIN (BEAKER) (test yhca=398) 7.1 GM/DL 13.7-17.5 HEMATOCRIT (BEAKER) (test upaw=057) 21.0 % 40.1-51.0 MEAN CORPUSCULAR VOLUME (BEAKER) (test qgrg=970) 92.5 fL 79.0-92.2 MEAN CORPUSCULAR HEMOGLOBIN (BEAKER) (test 31.3 pg 25.7-32.2 bwlx=680) MEAN CORPUSCULAR HEMOGLOBIN CONC (BEAKER) (test 33.8 GM/DL 32.3-36.5 jbws=250) RED CELL DISTRIBUTION WIDTH (BEAKER) (test 17.2 % 11.6-14.4 zpcd=523) PLATELET COUNT (BEAKER) (test bcwk=165) 42 K/CU MM 150-450 MEAN PLATELET VOLUME (BEAKER) (test uzbn=679) 10.1 fL 9.4-12.4 NUCLEATED RED BLOOD CELLS (BEAKER) (test 0 /100 WBC 0-0 erfq=257) NEUTROPHILS RELATIVE PERCENT (BEAKER) (test 77 % uamn=351) LYMPHOCYTES RELATIVE PERCENT (BEAKER) (test 12 % qwra=520) MONOCYTES RELATIVE PERCENT (BEAKER) (test 10 % bcsb=146) EOSINOPHILS RELATIVE PERCENT (BEAKER) (test 1 % cezr=377) BASOPHILS RELATIVE PERCENT (BEAKER) (test 0 % mmjb=244) NEUTROPHILS ABSOLUTE COUNT (BEAKER) (test 2.21 K/ L 1.78-5.38 rbmv=302) LYMPHOCYTES ABSOLUTE COUNT (BEAKER) (test 0.33 K/ L 1.32-3.57 bciz=588) MONOCYTES ABSOLUTE COUNT (BEAKER) (test kcvj=320) 0.30 K/ L 0.30-0.82 EOSINOPHILS ABSOLUTE COUNT (BEAKER) (test 0.03 K/ L 0.04-0.54 laqv=853) BASOPHILS ABSOLUTE COUNT (BEAKER) (test feqh=628) 0.00 K/ L 0.01-0.08 IMMATURE GRANULOCYTES-RELATIVE PERCENT (BEAKER) 0 % 0-1 (test fdrp=0516) [id number] 06:06:00 Test Item Value Reference Range Comments PHOSPHORUS (BEAKER) (test psja=882) 3.6 mg/dL 2.3-4.7 [id number] 06:06:00 Test Item Value Reference Range Comments MAGNESIUM (BEAKER) (test pbam=710) 2.0 mg/dL 1.6-2.6 BASIC METABOLIC [id number] 06:06:00 Test Item Value Reference Range Comments SODIUM (BEAKER) (test 130 meq/L 136-145 qoxp=228) POTASSIUM (BEAKER) (test 4.4 meq/L 3.5-5.1 fixo=310) CHLORIDE (BEAKER) (test 100 meq/L 98-107 slyb=464) CO2 (BEAKER) (test 23 meq/L 22-29 roin=809) BLOOD UREA NITROGEN 21 mg/dL 7-21 (BEAKER) (test jswh=753) CREATININE (BEAKER) (test 1.11 mg/dL 0.57-1.25 cgry=015) GLUCOSE RANDOM (BEAKER) 120 mg/dL 70-105 (test ogph=489) CALCIUM (BEAKER) (test 9.4 mg/dL 8.4-10.2 xvyg=399) EGFR (BEAKER) (test 70 mL/min/1.73 sq m ESTIMATED GFR IS NOT enuc=7488) ACCURATE CREATININE CLEARANCE IN PREDICTING GLOMERULAR FILTRATION RATE. ESTIMATED GFR IS NOT APPLICABLE FOR DIALYSIS PATIENTS. Specimen slightly ictericPROTHROMBIN [id number] 06:02:00 Test Item Value Reference Range Comments PROTIME (BEAKER) (test nvou=403) 22.9 seconds 11.7-14.7 INR (BEAKER) (test spqo=340) 2.0 <=5.9 RECOMMENDED COUMADIN/WARFARIN INR THERAPY RANGESSTANDARD DOSE: 2.0 - 3.0 Includes: PROPHYLAXIS forvenous thrombosis, systemic embolization; TREATMENT for venous thrombosis and/or pulmonary embolus.HIGH RISK: Target INR is 2.5-3.5 for patients with mechanical heart valves.CALCIUM, [id number] 06:01:00 Test Item Value Reference Range Comments CALCIUM IONIZED (BEAKER) (test ggtz=487) 1.11 mmol/L 1.12-1.27 PH, BLOOD (BEAKER) (test biah=6709) 7.53 CORTISOL,60 [id number] 23:20:00 Test Item Value Reference Range Comments CORTISOL BASELINE NETWORKED (BEAKER) (test 4.8 mcg/dL lect=2878) CORTISOL 30 MINUTE NETWORKED (BEAKER) (test 9.2 mcg/dL qfky=8109) CORTISOL, 60 MINUTE (BEAKER) (test tyqh=9767) 12.6 ug/dL ACTH STIMULATION TEST INTERPRETATION GUIDELINES(Synonyms: [...] study by Mindy et al (NEVAEH 2000,283( 8):2751-45), the ACTH Stimulation Test provides important prognostic [...] serum cortisollevel 60 minutes after cosyntropin administration.CORTISOL,30 [id number] 22:35:00 Test Item Value Reference Range Comments CORTISOL BASELINE NETWORKED (BEAKER) (test 4.8 mcg/dL xpwn=9244) CORTISOL, 30 MINUTE (BEAKER) (test gwiv=2753) 9.2 ug/dL ACTH STIMULATION TEST INTERPRETATION GUIDELINES(Synonyms: [...] study by Mindy et al (NEVAEH 2000,283( 8):3562-82), the ACTH Stimulation Test provides important prognostic [...] Draw serum cortisollevel 60 minutes after cosyntropin administration.CORTISOL,[id number] 22:35:00 Test Item Value Reference Range Comments CORTISOL, BASELINE (TIMOTHYAKER) (test vcky=1345) 4.8 ug/dL ACTH STIMULATION TEST INTERPRETATION GUIDELINES(Synonyms: [...] serum cortisollevel 60 minutes after cosyntropin administration.U/S, [id number] 17:54:00Reason for exam:->therapeuticFINAL REPORT History: Ascites. PROCEDURE: Following informed written consent,the patient's right lower quadrant was prepped and draped in the usual sterile manner. 2% lidocaine was given locally for anesthesia. No conscious sedation was administered. Using ultrasound guidance, a 5 [place]i one-step catheter was advanced percutaneously into the [...] Verified Date/Time: 01/05/2018 17: 54:16 Reading Location: [address] Ultrasound Reading Room [id number] 11:19:00 Test Item Value Reference Range Comments CORTISOL, TOTAL (BEAKER) (test zjme=9799) 2.7 ug/dL 3.7-19.4 [id number] 10:21:00 Test Item Value Reference Range Comments PHOSPHORUS (BEAKER) (test oeor=784) 2.8 mg/dL 2.3-4.7 [id number] 10:21:00 Test Item Value Reference Range Comments MAGNESIUM (BEAKER) (test wqoq=937) 1.9 mg/dL 1.6-2.6 BASIC METABOLIC [id number] 10:21:00 Test Item Value Reference Range Comments SODIUM (BEAKER) (test 127 meq/L 136-145 dptk=487) POTASSIUM (BEAKER) (test 5.0 meq/L 3.5-5.1 weep=915) CHLORIDE (BEAKER) (test 100 meq/L 98-107 zonv=862) CO2 (BEAKER) (test 22 meq/L 22-29 beee=300) BLOOD UREA NITROGEN 25 mg/dL 7-21 (BEAKER) (test fgsn=940) CREATININE (BEAKER) (test 1.17 mg/dL 0.57-1.25 txro=090) GLUCOSE RANDOM (BEAKER) 84 mg/dL 70-105 (test nvzg=012) CALCIUM (BEAKER) (test 8.7 mg/dL 8.4-10.2 irsq=829) EGFR (BEAKER) (test 65 mL/min/1.73 sq m ESTIMATED GFR IS NOT vrss=5492) ACCURATE CREATININE CLEARANCE IN PREDICTING GLOMERULAR FILTRATION RATE. ESTIMATED GFR IS NOT APPLICABLE FOR DIALYSIS PATIENTS. Specimen slightly ictericCBC W/PLT COUNT & AUTO [id number] 08:42 :00 Test Item Value Reference Range Comments WHITE BLOOD CELL COUNT (BEAKER) (test qqun=484) 2.7 K/ L 3.5-10.5 RED BLOOD CELL COUNT (BEAKER) (test zqob=993) 2.33 M/ L 4.63-6.08 HEMOGLOBIN (BEAKER) (test hcex=199) 7.3 GM/DL 13.7-17.5 HEMATOCRIT (BEAKER) (test kujn=138) 22.0 % 40.1-51.0 MEAN CORPUSCULAR VOLUME (BEAKER) (test jeht=920) 94.4 fL 79.0-92.2 MEAN CORPUSCULAR HEMOGLOBIN (BEAKER) (test 31.3 pg 25.7-32.2 dstp=814) MEAN CORPUSCULAR HEMOGLOBIN CONC (BEAKER) (test 33.2 GM/DL 32.3-36.5 yekc=290) RED CELL DISTRIBUTION WIDTH (BEAKER) (test 17.2 % 11.6-14.4 dbed=474) PLATELET COUNT (BEAKER) (test wjzx=654) 45 K/CU MM 150-450 MEAN PLATELET VOLUME (BEAKER) (test duup=790) 9.3 fL 9.4-12.4 NUCLEATED RED BLOOD CELLS (BEAKER) (test 0 /100 WBC 0-0 vxhc=692) NEUTROPHILS RELATIVE PERCENT (BEAKER) (test 60 % fqbl=517) LYMPHOCYTES RELATIVE PERCENT (BEAKER) (test 17 % alrz=066) MONOCYTES RELATIVE PERCENT (BEAKER) (test 16 % wlzk=120) EOSINOPHILS RELATIVE PERCENT (BEAKER) (test 6 % ihod=370) BASOPHILS RELATIVE PERCENT (BEAKER) (test 0 % tpxc=926) NEUTROPHILS ABSOLUTE COUNT (BEAKER) (test 1.63 K/ L 1.78-5.38 fdlu=393) LYMPHOCYTES ABSOLUTE COUNT (BEAKER) (test 0.45 K/ L 1.32-3.57 xyht=948) MONOCYTES ABSOLUTE COUNT (BEAKER) (test yzcm=345) 0.44 K/ L 0.30-0.82 EOSINOPHILS ABSOLUTE COUNT (BEAKER) (test 0.16 K/ L 0.04-0.54 gylp=616) BASOPHILS ABSOLUTE COUNT (BEAKER) (test blaa=731) 0.01 K/ L 0.01-0.08 IMMATURE GRANULOCYTES-RELATIVE PERCENT (BEAKER) 1 % 0-1 (test itcn=7335) (MANUAL DIFFERENTIAL)2018-01-05 08:42:00 Test Item Value Reference Range Comments TOTAL COUNTED (BEAKER) (test uqxk=6270) WBC MORPHOLOGY (BEAKER) (test qtss=978) Normal PLT MORPHOLOGY (BEAKER) (test ciey=369) Normal ANISOCYTOSIS (BEAKER) (test avxh=085) 1+ few CALCIUM, [id number] 08:10:00 Test Item Value Reference Range Comments CALCIUM IONIZED (BEAKER) (test gcxx=612) 1.08 mmol/L 1.12-1.27 PH, BLOOD (BEAKER) (test gpvv=4503) 7.44 PROTHROMBIN [id number] 07:12:00 Test Item Value Reference Range Comments PROTIME (BEAKER) (test xfvh=157) 22.4 seconds 11.7-14.7 INR (BEAKER) (test gdws=592) 2.0 <=5.9 RECOMMENDED COUMADIN/WARFARIN INR THERAPY RANGESSTANDARD DOSE: 2.0 - 3.0 Includes: PROPHYLAXIS forvenous thrombosis, systemic embolization; TREATMENT for venous thrombosis and/or pulmonary embolus.HIGH RISK: Target INR is 2.5-3.5 for patients with mechanical heart valves.[id number] 17:54:00 Test Item Value Reference Range Comments SODIUM (BEAKER) (test qlcy=442) 129 meq/L 136-145 POTASSIUM (BEAKER) (test dczs=399) 5.5 meq/L 3.5-5.1 CHLORIDE (BEAKER) (test adsf=861) 101 meq/L 98-107 CO2 (BEAKER) (test vhqr=557) 26 meq/L 22-29 Call [id number] with resultsCBC (HEMOGRAM ONLY)2018-01-04 07:16:00 Test Item Value Reference Range Comments WHITE BLOOD CELL COUNT (BEAKER) (test pcuj=123) 2.9 K/ L 3.5-10.5 RED BLOOD CELL COUNT (BEAKER) (test rwyf=178) 2.25 M/ L 4.63-6.08 HEMOGLOBIN (BEAKER) (test nior=940) 7.3 GM/DL 13.7-17.5 HEMATOCRIT (BEAKER) (test zcef=582) 21.3 % 40.1-51.0 MEAN CORPUSCULAR VOLUME (BEAKER) (test fpgq=612) 94.7 fL 79.0-92.2 MEAN CORPUSCULAR HEMOGLOBIN (BEAKER) (test 32.4 pg 25.7-32.2 tvab=869) MEAN CORPUSCULAR HEMOGLOBIN CONC (BEAKER) (test 34.3 GM/DL 32.3-36.5 bibk=384) RED CELL DISTRIBUTION WIDTH (BEAKER) (test 17.6 % 11.6-14.4 mkcc=414) PLATELET COUNT (BEAKER) (test pglm=235) 59 K/CU MM 150-450 MEAN PLATELET VOLUME (BEAKER) (test sriw=675) 11.3 fL 9.4-12.4 NUCLEATED RED BLOOD CELLS (BEAKER) (test 0 /100 WBC 0-0 hqrf=112) COMPREHENSIVE METABOLIC [id number] 06:49:00 Test Item Value Reference Range Comments TOTAL PROTEIN (BEAKER) 5.3 gm/dL 6.0-8.3 Specimen slightly (test rtwq=015) hemolyzed ALBUMIN (BEAKER) (test 3.3 g/dL 3.5-5.0 Specimen slightly aetq=2223) hemolyzed ALKALINE PHOSPHATASE 81 U/L 40-150 (BEAKER) (test lpco=654) BILIRUBIN TOTAL (BEAKER) 2.4 mg/dL 0.2-1.2 Specimen slightly (test wnpg=701) hemolyzed SODIUM (BEAKER) (test 127 meq/L 136-145 ibpn=191) POTASSIUM (BEAKER) (test 5.7 meq/L 3.5-5.1 Specimen slightly ijzk=150) hemolyzed CHLORIDE (BEAKER) (test 100 meq/L 98-107 yoqm=190) CO2 (BEAKER) (test 20 meq/L 22-29 amop=028) BLOOD UREA NITROGEN 22 mg/dL 7-21 (BEAKER) (test xwwb=208) CREATININE (BEAKER) (test 1.14 mg/dL 0.57-1.25 Specimen slightly lvrf=811) hemolyzed GLUCOSE RANDOM (BEAKER) 96 mg/dL 70-105 (test nqre=248) CALCIUM (BEAKER) (test 8.9 mg/dL 8.4-10.2 pghx=891) AST (SGOT) (BEAKER) (test 30 U/L 5-34 Specimen slightly hvwk=835) hemolyzed ALT (SGPT) (BEAKER) (test 8 U/L 6-55 Specimen slightly prha=286) hemolyzed EGFR (BEAKER) (test 67 mL/min/1.73 sq m ESTIMATED GFR IS NOT pijh=0729) ACCURATE CREATININE CLEARANCE IN PREDICTING GLOMERULAR FILTRATION RATE. ESTIMATED GFR IS NOT APPLICABLE FOR DIALYSIS PATIENTS. Specimen slightly ictericPROTHROMBIN [id number] 06:15:00 Test Item Value Reference Range Comments PROTIME (BEAKER) (test bdkg=161) 22.7 seconds 11.7-14.7 INR (BEAKER) (test tmyd=648) 2.0 <=5.9 RECOMMENDED COUMADIN/WARFARIN INR THERAPY RANGESSTANDARD DOSE: 2.0 - 3.0 Includes: PROPHYLAXIS forvenous thrombosis, systemic embolization; TREATMENT for venous thrombosis and/or pulmonary embolus.HIGH RISK: Target INR is 2.5-3.5 for patients with mechanical heart valves.VITAMIN B12 AND [id number] 16:39 :00 Test Item Value Reference Range Comments VITAMIN B12 (BEAKER) (test vvfa=293) 829 pg/mL 213-816 FOLATE (BEAKER) (test ulzj=351) 18.9 ng/mL >=7.0 CALCIUM, [id number] 07:14:00 Test Item Value Reference Range Comments CALCIUM IONIZED (BEAKER) (test aidl=249) 1.08 mmol/L 1.12-1.27 PH, BLOOD (BEAKER) (test tyfs=2740) 7.41 COMPREHENSIVE METABOLIC [id number] 07:00:00 Test Item Value Reference Range Comments TOTAL PROTEIN (BEAKER) 5.0 gm/dL 6.0-8.3 (test xlad=137) ALBUMIN (BEAKER) (test 3.1 g/dL 3.5-5.0 tmfl=5117) ALKALINE PHOSPHATASE 65 U/L 40-150 (BEAKER) (test frqg=723) BILIRUBIN TOTAL (BEAKER) 2.5 mg/dL 0.2-1.2 (test uini=447) SODIUM (BEAKER) (test 127 meq/L 136-145 dpgq=231) POTASSIUM (BEAKER) (test 4.7 meq/L 3.5-5.1 sais=906) CHLORIDE (BEAKER) (test 99 meq/L 98-107 ufcr=387) CO2 (BEAKER) (test 23 meq/L 22-29 pqjk=531) BLOOD UREA NITROGEN 21 mg/dL 7-21 (BEAKER) (test vmka=120) CREATININE (BEAKER) (test 1.13 mg/dL 0.57-1.25 iinv=044) GLUCOSE RANDOM (BEAKER) 92 mg/dL 70-105 (test qcem=249) CALCIUM (BEAKER) (test 8.9 mg/dL 8.4-10.2 vrcr=296) AST (SGOT) (BEAKER) (test 18 U/L 5-34 qfli=173) ALT (SGPT) (BEAKER) (test 8 U/L 6-55 wlsj=770) EGFR (BEAKER) (test 68 mL/min/1.73 sq m ESTIMATED GFR IS NOT tzmy=4238) ACCURATE CREATININE CLEARANCE IN PREDICTING GLOMERULAR FILTRATION RATE. ESTIMATED GFR IS NOT APPLICABLE FOR DIALYSIS PATIENTS. [id number] 06:37:00 Test Item Value Reference Range Comments PHOSPHORUS (BEAKER) (test nsku=056) 3.2 mg/dL 2.3-4.7 [id number] 06:37:00 Test Item Value Reference Range Comments MAGNESIUM (BEAKER) (test pspj=496) 1.9 mg/dL 1.6-2.6 CBC (HEMOGRAM ONLY)2018-01-03 06:25:00 Test Item Value Reference Range Comments WHITE BLOOD CELL COUNT (BEAKER) (test gzzp=798) 3.1 K/ L 3.5-10.5 RED BLOOD CELL COUNT (BEAKER) (test dbmn=838) 2.31 M/ L 4.63-6.08 HEMOGLOBIN (BEAKER) (test jefj=482) 7.4 GM/DL 13.7-17.5 HEMATOCRIT (BEAKER) (test owan=367) 21.6 % 40.1-51.0 MEAN CORPUSCULAR VOLUME (BEAKER) (test tflj=627) 93.5 fL 79.0-92.2 MEAN CORPUSCULAR HEMOGLOBIN (BEAKER) (test 32.0 pg 25.7-32.2 vqbn=058) MEAN CORPUSCULAR HEMOGLOBIN CONC (BEAKER) (test 34.3 GM/DL 32.3-36.5 fkmx=685) RED CELL DISTRIBUTION WIDTH (BEAKER) (test 17.4 % 11.6-14.4 tloy=782) PLATELET COUNT (BEAKER) (test kgqn=050) 50 K/CU MM 150-450 MEAN PLATELET VOLUME (BEAKER) (test xgoz=908) 10.5 fL 9.4-12.4 NUCLEATED RED BLOOD CELLS (BEAKER) (test 0 /100 WBC 0-0 bxft=915) PROTHROMBIN [id number] 06:09:00 Test Item Value Reference Range Comments PROTIME (BEAKER) (test kcek=274) 22.2 seconds 11.7-14.7 INR (BEAKER) (test rvoq=169) 2.0 <=5.9 RECOMMENDED COUMADIN/WARFARIN INR THERAPY RANGESSTANDARD DOSE: 2.0 - 3.0 Includes: PROPHYLAXIS forvenous thrombosis, systemic embolization; TREATMENT for venous thrombosis and/or pulmonary embolus.HIGH RISK: Target INR is 2.5-3.5 for patients with mechanical heart valves.[id number] 07:54:00 Test Item Value Reference Range Comments PHOSPHORUS (BEAKER) (test sbwn=412) 3.2 mg/dL 2.3-4.7 [id number] 07:54:00 Test Item Value Reference Range Comments MAGNESIUM (BEAKER) (test zary=208) 1.4 mg/dL 1.6-2.6 COMPREHENSIVE METABOLIC [id number] 07:54:00 Test Item Value Reference Range Comments TOTAL PROTEIN (BEAKER) 5.3 gm/dL 6.0-8.3 (test dmvz=175) ALBUMIN (BEAKER) (test 3.4 g/dL 3.5-5.0 otmd=0753) ALKALINE PHOSPHATASE 55 U/L 40-150 (BEAKER) (test stwk=950) BILIRUBIN TOTAL (BEAKER) 3.9 mg/dL 0.2-1.2 (test late=352) SODIUM (BEAKER) (test 131 meq/L 136-145 uhvu=937) POTASSIUM (BEAKER) (test 4.3 meq/L 3.5-5.1 xqny=367) CHLORIDE (BEAKER) (test 101 meq/L 98-107 uptb=740) CO2 (BEAKER) (test 23 meq/L 22-29 uwuf=156) BLOOD UREA NITROGEN 19 mg/dL 7-21 (BEAKER) (test jdvi=832) CREATININE (BEAKER) (test 0.97 mg/dL 0.57-1.25 mfui=180) GLUCOSE RANDOM (BEAKER) 80 mg/dL 70-105 (test ecze=968) CALCIUM (BEAKER) (test 9.4 mg/dL 8.4-10.2 zsjs=862) AST (SGOT) (BEAKER) (test 17 U/L 5-34 ecwv=952) ALT (SGPT) (BEAKER) (test 8 U/L 6-55 xewp=455) EGFR (BEAKER) (test 81 mL/min/1.73 sq m ESTIMATED GFR IS NOT ifrk=2249) ACCURATE CREATININE CLEARANCE IN PREDICTING GLOMERULAR FILTRATION RATE. ESTIMATED GFR IS NOT APPLICABLE FOR DIALYSIS PATIENTS. Specimen slightly ictericCBC W/PLT COUNT & AUTO [id number] 07:14 :00 Test Item Value Reference Range Comments WHITE BLOOD CELL COUNT (BEAKER) (test jtlu=720) 2.9 K/ L 3.5-10.5 RED BLOOD CELL COUNT (BEAKER) (test cbir=551) 2.55 M/ L 4.63-6.08 HEMOGLOBIN (BEAKER) (test wcov=387) 8.1 GM/DL 13.7-17.5 HEMATOCRIT (BEAKER) (test bmdj=203) 23.7 % 40.1-51.0 MEAN CORPUSCULAR VOLUME (BEAKER) (test bnoj=218) 92.9 fL 79.0-92.2 MEAN CORPUSCULAR HEMOGLOBIN (BEAKER) (test 31.8 pg 25.7-32.2 dpxq=095) MEAN CORPUSCULAR HEMOGLOBIN CONC (BEAKER) (test 34.2 GM/DL 32.3-36.5 banb=930) RED CELL DISTRIBUTION WIDTH (BEAKER) (test 17.5 % 11.6-14.4 exyu=388) PLATELET COUNT (BEAKER) (test obqy=574) 50 K/CU MM 150-450 MEAN PLATELET VOLUME (BEAKER) (test nhji=248) 9.5 fL 9.4-12.4 NUCLEATED RED BLOOD CELLS (BEAKER) (test 0 /100 WBC 0-0 shgn=000) NEUTROPHILS RELATIVE PERCENT (BEAKER) (test 57 % tffr=806) LYMPHOCYTES RELATIVE PERCENT (BEAKER) (test 17 % pndl=286) MONOCYTES RELATIVE PERCENT (BEAKER) (test 18 % dzlc=928) EOSINOPHILS RELATIVE PERCENT (BEAKER) (test 7 % ujcs=620) BASOPHILS RELATIVE PERCENT (BEAKER) (test 0 % ubfa=768) NEUTROPHILS ABSOLUTE COUNT (BEAKER) (test 1.65 K/ L 1.78-5.38 mfhl=124) LYMPHOCYTES ABSOLUTE COUNT (BEAKER) (test 0.49 K/ L 1.32-3.57 qbof=615) MONOCYTES ABSOLUTE COUNT (BEAKER) (test sdnx=544) 0.51 K/ L 0.30-0.82 EOSINOPHILS ABSOLUTE COUNT (BEAKER) (test 0.20 K/ L 0.04-0.54 dxls=283) BASOPHILS ABSOLUTE COUNT (BEAKER) (test osgm=653) 0.01 K/ L 0.01-0.08 IMMATURE GRANULOCYTES-RELATIVE PERCENT (BEAKER) 1 % 0-1 (test heni=0453) (MANUAL DIFFERENTIAL)2018-01-02 07:14:00 Test Item Value Reference Range Comments TOTAL COUNTED (BEAKER) (test ldcf=8828) CALCIUM, [id number] 07:04:00 Test Item Value Reference Range Comments CALCIUM IONIZED (BEAKER) (test mcdv=617) 1.07 mmol/L 1.12-1.27 PH, BLOOD (BEAKER) (test hwhp=1681) 7.49 PROTHROMBIN [id number] 06:42:00 Test Item Value Reference Range Comments PROTIME (BEAKER) (test swzg=033) 24.6 seconds 11.7-14.7 INR (BEAKER) (test ijfq=320) 2.2 <=5.9 RECOMMENDED COUMADIN/WARFARIN INR THERAPY RANGESSTANDARD DOSE: 2.0 - 3.0 Includes: PROPHYLAXIS forvenous thrombosis, systemic embolization; TREATMENT for venous thrombosis and/or pulmonary embolus.HIGH RISK: Target INR is 2.5-3.5 for patients with mechanical heart valves.CYTOMEGALOVIRUS ANTIBODY, [id number] 14:58:00 Test Item Value Reference Range Comments CYTOMEGALOVIRUS IGG ANTIBODY (BEAKER) (test Positive yako=982) CYTOMEGALOVIRUS ANTIBODY, [id number] 14:58:00 Test Item Value Reference Range Comments CYTOMEGALOVIRUS IGM ANTIBODY (BEAKER) (test Negative thrd=636) EBV-VCA ANTIBODY, [id number] 14:58:00 Test Item Value Reference Range Comments MARCELLUS-DAVIS VCA IGG (BEAKER) (test sjcu=458) Positive EBV-VCA ANTIBODY, [id number] 14:58:00 Test Item Value Reference Range Comments MARCELLUS-DAVIS VCA IGM (BEAKER) (test oqsm=439) Negative BODY FLUID CELL COUNT WITH [id number] 14:27:00 Test Item Value Reference Range Comments APPEARANCE FLUID (BEAKER) (test jikc=454) Slightly Hazy Clear COLOR FLUID (BEAKER) (test ymez=533) Yellow Colorless, Straw RBC FLUID (BEAKER) (test rxnj=958) 378 /cu mm <=1 ADJUSTED WBC FLUID (BEAKER) (test clqs=7188) 84 /cu mm <=5 LINING CELLS (BEAKER) (test otch=3003) 17 /cu mm <=1 NEUTROPHILS FLUID (BEAKER) (test yeqi=4559) 1 % LYMPHS FLUID (BEAKER) (test ivzh=592) 14 % MONO/MACROPHAGE FLUID (BEAKER) (test 85 % gdfp=898) EOSINOPHILS FLUID (BEAKER) (test fbng=082) 0 % BASO FLUID (BEAKER) (test txhw=104) 0 % CONTAINER BODY FLUID (BEAKER) (test EDTA Tube zhxp=5087) U/S, [id number] 11:17:00Reason for exam:->ascitesFINAL REPORT Ultrasound guided paracentesis, 01/01/2018. Clinical History:Ascites. Sedation: None. Retail Aide: Paul Butler MD Supervisor [employer] Fabrication: None. Estimated Blood Loss: < 1 cc. [...] was achieved with 1% lidocaine, a 5 Yemeni one-step catheter was advanced into the peritoneal cavity under ultrasound guidance. After completion of drainage, the catheter was removed. There was no evidence ofcomplication. Patient Disposition: The patient was transferred to the inpatient unit from the ultrasound department after the paracentesis, in good condition. Impression:Successful ultrasound guided paracentesis. Signed: Paul Butler MDReport Verified Date/Time: 01/01/2018 11:17:26 Reading Location: [address] Ultrasound Reading Room CBC W/PLT COUNT & AUTO [id number] 08:55:00 Test Item Value Reference Range Comments WHITE BLOOD CELL COUNT (BEAKER) (test qduw=239) 2.6 K/ L 3.5-10.5 RED BLOOD CELL COUNT (BEAKER) (test cdrg=024) 2.17 M/ L 4.63-6.08 HEMOGLOBIN (BEAKER) (test ukws=065) 6.9 GM/DL 13.7-17.5 HEMATOCRIT (BEAKER) (test qmzk=902) 20.6 % 40.1-51.0 MEAN CORPUSCULAR VOLUME (BEAKER) (test sswy=306) 94.9 fL 79.0-92.2 MEAN CORPUSCULAR HEMOGLOBIN (BEAKER) (test 31.8 pg 25.7-32.2 mguw=781) MEAN CORPUSCULAR HEMOGLOBIN CONC (BEAKER) (test 33.5 GM/DL 32.3-36.5 gdoc=388) RED CELL DISTRIBUTION WIDTH (BEAKER) (test 17.0 % 11.6-14.4 tweb=630) PLATELET COUNT (BEAKER) (test kvkb=036) 43 K/CU MM 150-450 MEAN PLATELET VOLUME (BEAKER) (test cgwv=989) 9.3 fL 9.4-12.4 NUCLEATED RED BLOOD CELLS (BEAKER) (test 0 /100 WBC 0-0 hrxe=874) NEUTROPHILS RELATIVE PERCENT (BEAKER) (test 62 % fscm=294) LYMPHOCYTES RELATIVE PERCENT (BEAKER) (test 13 % oowa=077) MONOCYTES RELATIVE PERCENT (BEAKER) (test 18 % osho=653) EOSINOPHILS RELATIVE PERCENT (BEAKER) (test 6 % flqb=196) BASOPHILS RELATIVE PERCENT (BEAKER) (test 0 % nuxj=834) NEUTROPHILS ABSOLUTE COUNT (BEAKER) (test 1.58 K/ L 1.78-5.38 ekec=151) LYMPHOCYTES ABSOLUTE COUNT (BEAKER) (test 0.33 K/ L 1.32-3.57 wfxf=040) MONOCYTES ABSOLUTE COUNT (BEAKER) (test nurz=708) 0.46 K/ L 0.30-0.82 EOSINOPHILS ABSOLUTE COUNT (BEAKER) (test 0.15 K/ L 0.04-0.54 wcdg=630) BASOPHILS ABSOLUTE COUNT (BEAKER) (test uilh=336) 0.01 K/ L 0.01-0.08 IMMATURE GRANULOCYTES-RELATIVE PERCENT (BEAKER) 1 % 0-1 (test hyrh=1644) (MANUAL DIFFERENTIAL)2018-01-01 08:55:00 Test Item Value Reference Range Comments TOTAL COUNTED (BEAKER) (test ewnm=8707) CALCIUM, [id number] 07:43:00 Test Item Value Reference Range Comments CALCIUM IONIZED (BEAKER) (test qovn=597) 1.14 mmol/L 1.12-1.27 PH, BLOOD (BEAKER) (test abxf=3727) 7.52 [id number] 06:11:00 Test Item Value Reference Range Comments PHOSPHORUS (BEAKER) (test srun=039) 2.5 mg/dL 2.3-4.7 [id number] 06:11:00 Test Item Value Reference Range Comments MAGNESIUM (BEAKER) (test aebg=513) 1.7 mg/dL 1.6-2.6 COMPREHENSIVE METABOLIC [id number] 06:11:00 Test Item Value Reference Range Comments TOTAL PROTEIN (BEAKER) 5.6 gm/dL 6.0-8.3 (test tnje=929) ALBUMIN (BEAKER) (test 3.6 g/dL 3.5-5.0 cdpx=7373) ALKALINE PHOSPHATASE 68 U/L 40-150 (BEAKER) (test syyu=770) BILIRUBIN TOTAL (BEAKER) 2.7 mg/dL 0.2-1.2 (test oepg=758) SODIUM (BEAKER) (test 132 meq/L 136-145 aald=569) POTASSIUM (BEAKER) (test 4.9 meq/L 3.5-5.1 ilnh=521) CHLORIDE (BEAKER) (test 102 meq/L 98-107 ddrt=088) CO2 (BEAKER) (test 24 meq/L 22-29 bdez=688) BLOOD UREA NITROGEN 20 mg/dL 7-21 (BEAKER) (test cgzm=147) CREATININE (BEAKER) (test 1.17 mg/dL 0.57-1.25 iqgx=150) GLUCOSE RANDOM (BEAKER) 92 mg/dL 70-105 (test vkwn=343) CALCIUM (BEAKER) (test 9.7 mg/dL 8.4-10.2 cnjq=590) AST (SGOT) (BEAKER) (test 16 U/L 5-34 kaoa=251) ALT (SGPT) (BEAKER) (test 8 U/L 6-55 zavc=322) EGFR (BEAKER) (test 65 mL/min/1.73 sq m ESTIMATED GFR IS NOT fsua=1699) ACCURATE CREATININE CLEARANCE IN PREDICTING GLOMERULAR FILTRATION RATE. ESTIMATED GFR IS NOT APPLICABLE FOR DIALYSIS PATIENTS. Specimen slightly ictericPROTHROMBIN [id number] 06:00:00 Test Item Value Reference Range Comments PROTIME (BEAKER) (test xzpn=249) 24.0 seconds 11.7-14.7 INR (BEAKER) (test lnwq=940) 2.2 <=5.9 RECOMMENDED COUMADIN/WARFARIN INR THERAPY RANGESSTANDARD DOSE: 2.0 - 3.0 Includes: PROPHYLAXIS forvenous thrombosis, systemic embolization; TREATMENT for venous thrombosis and/or pulmonary embolus.HIGH RISK: Target INR is 2.5-3.5 for patients with mechanical heart valves.CT, CHEST, WITHOUT [id number] 19:24:00FINAL REPORT HISTORY: Lung nodule, >=1cm COMPARISON [...] 07: 24 PMPERIPHERAL BLOOD SMEAR - HOLD [id number] 19:18:00 Test Item Value Reference Range Comments PERIPHERAL SMEAR SAVE (BEAKER) prepared and saved smear, (test puvs=3451) 12/31/17 RETICULOCYTE [id number] 19:14:00 Test Item Value Reference Range Comments RETICULOCYTE COUNT PCT (BEAKER) (test gdsi=465) 3.5 % 0.5-1.8 LACTATE DEHYDROGENASE (LDH)2017-12-31 17:47:00 Test Item Value Reference Range Comments LACTATE DEHYDROGENASE (BEAKER) (test axzk=431) 112 U/L 125-220 BLOOD GAS, [id number] 17:27:00 Test Item Value Reference Range Comments PH ARTERIAL (BEAKER) (test nifs=315) 7.45 7.35-7.45 PCO2 ARTERIAL (BEAKER) (test uhlf=727) 36 mmHg 35-45 PO2 ARTERIAL (BEAKER) (test uyem=055) 76 mmHg 80-90 O2 SATURATION ARTERIAL (BEAKER) (test slmo=125) 96.1 % 96.0-97.0 HCO3 ARTERIAL (BEAKER) (test yatd=692) 24 mmol/L 21-29 BASE EXCESS ARTERIAL (BEAKER) (test dgin=033) 0.2 mmol/L -2.0-3.0 PATIENT TEMPERATURE (BEAKER) (test rmvj=7604) 36.4 C FIO2 (BEAKER) (test kkke=5707) 21.0 % MYOCARD IMAGING, MULTI, PHARM, [id number] 15:12:00FINAL REPORT PROCEDURE: Rest/Stress MYOCARDIAL PERFUSION SPECT with regadenoson\\XA9\\ CPT CODE: 34720 INDICATION: Liver transplant evaluation HISTORY: Cardiac risk [...] Normal extracardiac tracer distribution. 6. No previous [facility] study for comparison. NONINVASIVE RISK STRATIFICATION: The above findings are considered low risk (<1% annual mortality rate) based on the following criterion:- Normal orsmall myocardial perfusion defect at rest or with stress(JACC. 2012;59(9):857-81.) Signed: Quinten Napier Verified Date/Time: 12/31/2017 15:12:03 Reading Location: [address] Reading Room BILIRUBIN, [id number] 14:10:00 Test Item Value Reference Range Comments BILIRUBIN DIRECT (BEAKER) (test qhye=853) 1.6 mg/dL 0.1-0.5 HEMOGLOBIN AND [id number] 13:22:00 Test Item Value Reference Range Comments HEMOGLOBIN (BEAKER) (test lhuv=662) 7.3 GM/DL 13.7-17.5 HEMATOCRIT (BEAKER) (test rgwa=241) 21.9 % 40.1-51.0 CBC W/PLT COUNT & AUTO [id number] 11:06:00 Test Item Value Reference Range Comments WHITE BLOOD CELL COUNT (BEAKER) (test ftzm=835) 2.2 K/ L 3.5-10.5 RED BLOOD CELL COUNT (BEAKER) (test vllm=303) 2.07 M/ L 4.63-6.08 HEMOGLOBIN (BEAKER) (test tmva=712) 6.8 GM/DL 13.7-17.5 HEMATOCRIT (BEAKER) (test tutk=613) 19.6 % 40.1-51.0 MEAN CORPUSCULAR VOLUME (BEAKER) (test acyh=151) 94.7 fL 79.0-92.2 MEAN CORPUSCULAR HEMOGLOBIN (BEAKER) (test 32.9 pg 25.7-32.2 fcxa=864) MEAN CORPUSCULAR HEMOGLOBIN CONC (BEAKER) (test 34.7 GM/DL 32.3-36.5 wrfx=489) RED CELL DISTRIBUTION WIDTH (BEAKER) (test 16.9 % 11.6-14.4 nkgl=287) PLATELET COUNT (BEAKER) (test kugk=536) 47 K/CU MM 150-450 MEAN PLATELET VOLUME (BEAKER) (test uipj=518) 9.7 fL 9.4-12.4 NUCLEATED RED BLOOD CELLS (BEAKER) (test 0 /100 WBC 0-0 gmiq=073) NEUTROPHILS RELATIVE PERCENT (BEAKER) (test 54 % lqul=233) LYMPHOCYTES RELATIVE PERCENT (BEAKER) (test 17 % rymy=040) MONOCYTES RELATIVE PERCENT (BEAKER) (test 21 % zsib=690) EOSINOPHILS RELATIVE PERCENT (BEAKER) (test 8 % xxwx=050) BASOPHILS RELATIVE PERCENT (BEAKER) (test 1 % qvqx=027) NEUTROPHILS ABSOLUTE COUNT (BEAKER) (test 1.17 K/ L 1.78-5.38 exzd=977) LYMPHOCYTES ABSOLUTE COUNT (BEAKER) (test 0.36 K/ L 1.32-3.57 oblf=375) MONOCYTES ABSOLUTE COUNT (BEAKER) (test vrdq=232) 0.45 K/ L 0.30-0.82 EOSINOPHILS ABSOLUTE COUNT (BEAKER) (test 0.17 K/ L 0.04-0.54 mvft=319) BASOPHILS ABSOLUTE COUNT (BEAKER) (test aqdg=569) 0.01 K/ L 0.01-0.08 IMMATURE GRANULOCYTES-RELATIVE PERCENT (BEAKER) 1 % 0-1 (test mdvu=4642) (MANUAL DIFFERENTIAL)2017-12-31 11:06:00 Test Item Value Reference Range Comments TOTAL COUNTED (BEAKER) (test fauh=2584) [id number] 08:37:00 Test Item Value Reference Range Comments PROTIME (BEAKER) (test pnua=870) 24.0 seconds 11.7-14.7 INR (BEAKER) (test jerv=938) 2.2 <=5.9 PARTIAL THROMBOPLASTIN TIME (BEAKER) (test 55.2 seconds 22.5-36.0 pnrh=966) RECOMMENDED COUMADIN/WARFARIN INR THERAPY RANGESSTANDARD DOSE: 2.0 - 3.0 Includes: PROPHYLAXIS forvenous thrombosis, systemic embolization; TREATMENT for venous thrombosis and/or pulmonary embolus.HIGH RISK: Target INR is 2.5-3.5 for patients with mechanical heart valves.COMPREHENSIVE METABOLIC [id number] 06:37:00 Test Item Value Reference Range Comments TOTAL PROTEIN (BEAKER) 5.7 gm/dL 6.0-8.3 (test hkzb=596) ALBUMIN (BEAKER) (test 3.7 g/dL 3.5-5.0 teqe=6546) ALKALINE PHOSPHATASE 70 U/L 40-150 (BEAKER) (test zcri=273) BILIRUBIN TOTAL (BEAKER) 2.6 mg/dL 0.2-1.2 (test lygr=941) SODIUM (BEAKER) (test 130 meq/L 136-145 mqgu=432) POTASSIUM (BEAKER) (test 5.2 meq/L 3.5-5.1 eqvk=415) CHLORIDE (BEAKER) (test 100 meq/L 98-107 itdf=150) CO2 (BEAKER) (test 25 meq/L 22-29 bcpk=625) BLOOD UREA NITROGEN 20 mg/dL 7-21 (BEAKER) (test hsex=995) CREATININE (BEAKER) (test 1.08 mg/dL 0.57-1.25 zeqd=520) GLUCOSE RANDOM (BEAKER) 91 mg/dL 70-105 (test cscd=589) CALCIUM (BEAKER) (test 9.6 mg/dL 8.4-10.2 nfdl=585) AST (SGOT) (BEAKER) (test 16 U/L 5-34 cqme=140) ALT (SGPT) (BEAKER) (test 6 U/L 6-55 avyl=103) EGFR (BEAKER) (test 72 mL/min/1.73 sq m ESTIMATED GFR IS NOT okxd=7051) ACCURATE CREATININE CLEARANCE IN PREDICTING GLOMERULAR FILTRATION RATE. ESTIMATED GFR IS NOT APPLICABLE FOR DIALYSIS PATIENTS. Specimen slightly [id number] 06:01:00 Test Item Value Reference Range Comments RPR SCREEN (BEAKER) (test fdrp=858) Nonreactive Nonreactive CRYPTOCOCCAL [id number] 05:59:00 Test Item Value Reference Range Comments CRYPTOCOCCAL ANTIGEN, SERUM (BEAKER) (test Negative Negative, Interference ohho=7557) RAD, MANDIBLE, MIN 4 [id number] 01:37:00Reason for exam:->liver transplant evalShould this be [...] scattered sclerotic calvarial foci. Signed: Slick Barcenas MDRepst[facility] Verified Date/Time: 12/31/2017 01:37:57 Reading Location: [address] Reading Room Electronically signed by: SLICK BARCENAS M.D. on 04/2018 01:37 AMRAD, CHEST, 2 [id number] 23:32:00Reason for exam:-> liver transplant evalShould this [...] MDReport Verified Date/Time: 12/30/2017 23:32:31 Reading Location: [address] Reading Room HEMOGLOBIN [id number] 22:54:00 Test Item Value Reference Range Comments HEMOGLOBIN A1C (BEAKER) (test oegd=205) 4.1 % 4.3-6.1 HEPATITIS B SURFACE [id number] 16:31:00 Test Item Value Reference Range Comments HEPATITIS B SURFACE ANTIBODY (BEAKER) (test < mIU/mL <8.0 pgto=974) HEPATITIS B SURFACE [id number] 16:29:00 Test Item Value Reference Range Comments HEPATITIS B SURFACE ANTIGEN (2) (BEAKER) (test Nonreactive Nonreactive evqr=0579) HEPATITIS B CORE ANTIBODY, [id number] 16:29:00 Test Item Value Reference Range Comments HEPATITIS B CORE IGM ANTIBODY (BEAKER) (test Nonreactive Nonreactive lxiu=393) HEPATITIS A ANTIBODY, [id number] 16:29:00 Test Item Value Reference Range Comments HEPATITIS A IGM ANTIBODY (BEAKER) (test Nonreactive Nonreactive qtlr=923) HEPATITIS B CORE ANTIBODY, [id number] 16:29:00 Test Item Value Reference Range Comments HEPATITIS B CORE TOTAL ANTIBODY (BEAKER) (test Nonreactive Nonreactive fyqa=487) [id number] 16:26:00 Test Item Value Reference Range Comments T4 TOTAL (BEAKER) (test size=627) 3.5 ug/dL 4.9-11.7 [id number] 16:26:00 Test Item Value Reference Range Comments T3 TOTAL (BEAKER) (test opiz=232) 42 ng/dL 48-159 [id number] 16:24:00 Test Item Value Reference Range Comments FERRITIN (BEAKER) (test wybu=903) 1460 ng/mL 5-275 VITAMIN D, [id number] 16:24:00 Test Item Value Reference Range Comments VITAMIN D 25-OH (BEAKER) (test cdta=1521) 6.9 ng/mL 6.6-49.9 Effective 08/06/2017: Reference Range ChangeNew: 6.6-49.9 ng/mL Previous: 13.0 -47.8 ng/mLRecommended Vitamin D Target Range: 30.0-40.0 ng/[id number] 16: 24:00 Test Item Value Reference Range Comments THYROID STIMULATING HORMONE (BEAKER) (test 1.55 uIU/mL 0.35-4.94 wsdh=796) CARCINOEMBRYONIC ANTIGEN (CEA)2017-12-30 16:24:00 Test Item Value Reference Range Comments CARCINOEMBRYONIC ANTIGEN (BEAKER) (test yxbu=786) 3.0 ng/mL 0.0-5.0 [id number] 16:23:00 Test Item Value Reference Range Comments PROSTATE SPECIFIC ANTIGEN (BEAKER) (test rssj=593) 0.1 ng/mL 0.0-4.0 HIV-1 ANTIGEN WITH HIV-1/2 [id number] 16:23:00 Test Item Value Reference Range Comments HIV-1 ANTIGEN WITH HIV 1\\T\\2 ANTIBODY (2) Nonreactive Nonreactive (BEAKER) (test mdux=3199) HEPATITIS C [id number] 16:23:00 Test Item Value Reference Range Comments HEPATITIS C ANTIBODY (BEAKER) (test eyga=134) Nonreactive Nonreactive LIPID [id number] 16:06:00 Test Item Value Reference Range Comments TRIGLYCERIDES (BEAKER) (test rdgn=466) 38 mg/dL CHOLESTEROL (BEAKER) (test tcnu=875) 51 mg/dL HDL CHOLESTEROL (BEAKER) (test oaap=699) 10 mg/dL LDL CHOLESTEROL CALCULATED (BEAKER) (test gpmg=484) 33 mg/dL Triglyceride Reference Range: Low Risk [...] Value Reference Range Comments IRON (BEAKER) (test aaub=231) 90 ug/dL 40-160 TOTAL IRON BINDING CAPACITY (BEAKER) (test 85 ug/dL 250-450 ydkw=069) IRON % SATURATION (2) (BEAKER) (test wvdy=6529) 106 % 20-55 [id number] 16:04:00 Test Item Value Reference Range Comments TRANSFERRIN (BEAKER) (test cpvk=308) 65 mg/dL 174-382 Specimen slightly ictericURIC [id number] 16:02:00 Test Item Value Reference Range Comments URIC ACID (BEAKER) (test xcqn=378) 8.5 mg/dL 2.6-7.2 Specimen slightly [id number] 15:50:00 Test Item Value Reference Range Comments FIBRINOGEN LEVEL (BEAKER) (test qaia=955) 161 mg/dl 225-434 BODY FLUID CULTURE + GRAM [id number] 11:45:00 Test Item Value Reference Range Comments CULTURE (BEAKER) (test tesd=7683) No growth GRAM STAIN RESULT (BEAKER) (test No WBCs dcog=7090) GRAM STAIN RESULT (BEAKER) (test No organisms seen lfyi=06991) CBC W/PLT COUNT & AUTO [id number] 08:05:00 Test Item Value Reference Range Comments WHITE BLOOD CELL COUNT (BEAKER) (test bnvv=795) 2.0 K/ L 3.5-10.5 RED BLOOD CELL COUNT (BEAKER) (test ikpp=406) 2.20 M/ L 4.63-6.08 HEMOGLOBIN (BEAKER) (test mqgy=417) 7.1 GM/DL 13.7-17.5 HEMATOCRIT (BEAKER) (test khyo=267) 20.8 % 40.1-51.0 MEAN CORPUSCULAR VOLUME (BEAKER) (test hbfi=001) 94.5 fL 79.0-92.2 MEAN CORPUSCULAR HEMOGLOBIN (BEAKER) (test 32.3 pg 25.7-32.2 clbp=738) MEAN CORPUSCULAR HEMOGLOBIN CONC (BEAKER) (test 34.1 GM/DL 32.3-36.5 uzyb=279) RED CELL DISTRIBUTION WIDTH (BEAKER) (test 17.0 % 11.6-14.4 nsnu=618) PLATELET COUNT (BEAKER) (test lleq=842) 52 K/CU MM 150-450 MEAN PLATELET VOLUME (BEAKER) (test qxaa=227) 10.7 fL 9.4-12.4 NUCLEATED RED BLOOD CELLS (BEAKER) (test 0 /100 WBC 0-0 lghs=147) NEUTROPHILS RELATIVE PERCENT (BEAKER) (test 55 % ypee=368) LYMPHOCYTES RELATIVE PERCENT (BEAKER) (test 16 % fxob=733) MONOCYTES RELATIVE PERCENT (BEAKER) (test 20 % wowb=621) EOSINOPHILS RELATIVE PERCENT (BEAKER) (test 8 % eoki=924) BASOPHILS RELATIVE PERCENT (BEAKER) (test 1 % cxtk=223) NEUTROPHILS ABSOLUTE COUNT (BEAKER) (test 1.10 K/ L 1.78-5.38 rnyy=599) LYMPHOCYTES ABSOLUTE COUNT (BEAKER) (test 0.32 K/ L 1.32-3.57 nwfe=791) MONOCYTES ABSOLUTE COUNT (BEAKER) (test ouvu=369) 0.40 K/ L 0.30-0.82 EOSINOPHILS ABSOLUTE COUNT (BEAKER) (test 0.16 K/ L 0.04-0.54 esfe=908) BASOPHILS ABSOLUTE COUNT (BEAKER) (test qbit=224) 0.01 K/ L 0.01-0.08 IMMATURE GRANULOCYTES-RELATIVE PERCENT (BEAKER) 1 % 0-1 (test ijtz=9002) (MANUAL DIFFERENTIAL)2017-12-30 08:05:00 Test Item Value Reference Range Comments TOTAL COUNTED (BEAKER) (test edyp=4007) URINALYSIS W/ [id number] 06:46:00 Test Item Value Reference Range Comments COLOR (BEAKER) (test paoo=564) Yellow CLARITY (BEAKER) (test ftoc=018) Clear SPECIFIC GRAVITY UA (BEAKER) (test dblf=811) 1.008 1.001-1.035 PH UA (BEAKER) (test zoir=580) 6.0 5.0-8.0 PROTEIN UA (BEAKER) (test ayqj=165) Negative Negative GLUCOSE UA (BEAKER) (test qppd=633) Negative Negative KETONES UA (BEAKER) (test vpnp=787) Negative Negative BILIRUBIN UA (BEAKER) (test wxyx=541) Negative Negative BLOOD UA (BEAKER) (test vrbn=613) Negative Negative NITRITE UA (BEAKER) (test npyk=104) Negative Negative LEUKOCYTE ESTERASE UA (BEAKER) (test ywho=718) Negative Negative UROBILINOGEN UA (BEAKER) (test ojza=950) 0.2 mg/dL 0.2-1.0 RBC UA (BEAKER) (test yrmc=953) 0 /HPF WBC UA (BEAKER) (test yyxr=843) 0 /HPF HYALINE CASTS (BEAKER) (test ewvb=314) 5 /LPF SOURCE(BEAKER) (test hopt=0226) Urine, Voided SODIUM, RANDOM [id number] 06:35:00 Test Item Value Reference Range Comments SODIUM URINE (BEAKER) (test lptt=680) < meq/L Reference Range: No NormalsPROTEIN, RANDOM [id number] 06:35:00 Test Item Value Reference Range Comments PROTEIN, URINE (BEAKER) (test newo=9198) < mg/dL 0-14 [id number] 06:21:00 Test Item Value Reference Range Comments MAGNESIUM (BEAKER) (test 1.8 mg/dL 1.6-2.6 Specimen slightly hemolyzed wgks=340) [id number] 06:21:00 Test Item Value Reference Range Comments PHOSPHORUS (BEAKER) (test 2.9 mg/dL 2.3-4.7 Specimen slightly hemolyzed cvro=526) COMPREHENSIVE METABOLIC [id number] 06:21:00 Test Item Value Reference Range Comments TOTAL PROTEIN (BEAKER) 5.6 gm/dL 6.0-8.3 Specimen slightly (test ktma=402) hemolyzed ALBUMIN (BEAKER) (test 3.5 g/dL 3.5-5.0 Specimen slightly uead=4158) hemolyzed ALKALINE PHOSPHATASE 75 U/L 40-150 (BEAKER) (test ufuz=101) BILIRUBIN TOTAL (BEAKER) 3.0 mg/dL 0.2-1.2 Specimen slightly (test pxpj=942) hemolyzed SODIUM (BEAKER) (test 127 meq/L 136-145 klde=949) POTASSIUM (BEAKER) (test 5.2 meq/L 3.5-5.1 Specimen slightly llur=309) hemolyzed CHLORIDE (BEAKER) (test 97 meq/L 98-107 xrcb=304) CO2 (BEAKER) (test 24 meq/L 22-29 mrik=641) BLOOD UREA NITROGEN 22 mg/dL 7-21 (BEAKER) (test mrqw=259) CREATININE (BEAKER) (test 1.11 mg/dL 0.57-1.25 Specimen slightly lmhe=342) hemolyzed GLUCOSE RANDOM (BEAKER) 94 mg/dL 70-105 (test ibte=637) CALCIUM (BEAKER) (test 9.4 mg/dL 8.4-10.2 oitg=736) AST (SGOT) (BEAKER) (test 22 U/L 5-34 Specimen slightly jgja=086) hemolyzed ALT (SGPT) (BEAKER) (test 7 U/L 6-55 Specimen slightly fiee=148) hemolyzed EGFR (BEAKER) (test 70 mL/min/1.73 sq m ESTIMATED GFR IS NOT cgom=1960) ACCURATE CREATININE CLEARANCE IN PREDICTING GLOMERULAR FILTRATION RATE. ESTIMATED GFR IS NOT APPLICABLE FOR DIALYSIS PATIENTS. Specimen slightly ictericCREATININE, RANDOM [id number] 06:19:00 Test Item Value Reference Range Comments CREATININE URINE (BEAKER) (test uqcv=379) 60.6 mg/dL Reference Range: No [id number] 13:43:00 Test Item Value Reference Range Comments ETHANOL (BEAKER) (test mkyq=220) < mg/dL <=10 COMPREHENSIVE METABOLIC [id number] 08:23:00 Test Item Value Reference Range Comments TOTAL PROTEIN (BEAKER) 5.5 gm/dL 6.0-8.3 (test xxcr=484) ALBUMIN (BEAKER) (test 3.3 g/dL 3.5-5.0 qqvo=1514) ALKALINE PHOSPHATASE 85 U/L 40-150 (BEAKER) (test qwka=733) BILIRUBIN TOTAL (BEAKER) 3.8 mg/dL 0.2-1.2 (test kacs=694) SODIUM (BEAKER) (test 125 meq/L 136-145 bvyj=031) POTASSIUM (BEAKER) (test 4.7 meq/L 3.5-5.1 fdqb=705) CHLORIDE (BEAKER) (test 96 meq/L 98-107 ycnj=799) CO2 (BEAKER) (test 21 meq/L 22-29 buga=061) BLOOD UREA NITROGEN 22 mg/dL 7-21 (BEAKER) (test qyuq=229) CREATININE (BEAKER) (test 1.26 mg/dL 0.57-1.25 aigz=699) GLUCOSE RANDOM (BEAKER) 95 mg/dL 70-105 (test enmq=100) CALCIUM (BEAKER) (test 9.1 mg/dL 8.4-10.2 uhro=178) AST (SGOT) (BEAKER) (test 20 U/L 5-34 wuon=985) ALT (SGPT) (BEAKER) (test 8 U/L 6-55 kxyb=902) EGFR (BEAKER) (test 60 mL/min/1.73 sq m ESTIMATED GFR IS NOT xnol=5003) ACCURATE CREATININE CLEARANCE IN PREDICTING GLOMERULAR FILTRATION RATE. ESTIMATED GFR IS NOT APPLICABLE FOR DIALYSIS PATIENTS. Specimen slightly ictericCBC W/PLT COUNT & AUTO [id number] 07:17 :00 Test Item Value Reference Range Comments WHITE BLOOD CELL COUNT (BEAKER) (test rsit=522) 2.8 K/ L 3.5-10.5 RED BLOOD CELL COUNT (BEAKER) (test tsre=908) 2.28 M/ L 4.63-6.08 HEMOGLOBIN (BEAKER) (test jyfq=631) 7.3 GM/DL 13.7-17.5 HEMATOCRIT (BEAKER) (test yapy=630) 21.4 % 40.1-51.0 MEAN CORPUSCULAR VOLUME (BEAKER) (test eppk=142) 93.9 fL 79.0-92.2 MEAN CORPUSCULAR HEMOGLOBIN (BEAKER) (test 32.0 pg 25.7-32.2 tniw=024) MEAN CORPUSCULAR HEMOGLOBIN CONC (BEAKER) (test 34.1 GM/DL 32.3-36.5 jget=447) RED CELL DISTRIBUTION WIDTH (BEAKER) (test 16.9 % 11.6-14.4 znig=510) PLATELET COUNT (BEAKER) (test cvgt=920) 52 K/CU MM 150-450 MEAN PLATELET VOLUME (BEAKER) (test rixf=380) 9.8 fL 9.4-12.4 NUCLEATED RED BLOOD CELLS (BEAKER) (test 0 /100 WBC 0-0 ogij=933) NEUTROPHILS RELATIVE PERCENT (BEAKER) (test 61 % zgzu=593) LYMPHOCYTES RELATIVE PERCENT (BEAKER) (test 14 % tvxk=523) MONOCYTES RELATIVE PERCENT (BEAKER) (test 18 % qbpw=833) EOSINOPHILS RELATIVE PERCENT (BEAKER) (test 7 % lziv=494) BASOPHILS RELATIVE PERCENT (BEAKER) (test 0 % khmi=557) NEUTROPHILS ABSOLUTE COUNT (BEAKER) (test 1.69 K/ L 1.78-5.38 ssey=377) LYMPHOCYTES ABSOLUTE COUNT (BEAKER) (test 0.38 K/ L 1.32-3.57 uusl=699) MONOCYTES ABSOLUTE COUNT (BEAKER) (test eqtn=839) 0.51 K/ L 0.30-0.82 EOSINOPHILS ABSOLUTE COUNT (BEAKER) (test 0.18 K/ L 0.04-0.54 nlgg=088) BASOPHILS ABSOLUTE COUNT (BEAKER) (test fvjk=390) 0.01 K/ L 0.01-0.08 IMMATURE GRANULOCYTES-RELATIVE PERCENT (BEAKER) 1 % 0-1 (test gick=2873) CT, [id number] 22:20:00FINAL REPORT EXAM: CT of the abdomen [...] MDReport Verified Date/Time: 12/28/2017 22:20:52 Reading Location: [address] Reading Room CBC W/PLT COUNT & AUTO [id number] 18:06:00 Test Item Value Reference Range Comments WHITE BLOOD CELL COUNT (BEAKER) (test grcz=003) 2.9 K/ L 3.5-10.5 RED BLOOD CELL COUNT (BEAKER) (test lbrt=182) 2.03 M/ L 4.63-6.08 HEMOGLOBIN (BEAKER) (test mugm=932) 6.5 GM/DL 13.7-17.5 HEMATOCRIT (BEAKER) (test gydx=214) 19.2 % 40.1-51.0 MEAN CORPUSCULAR VOLUME (BEAKER) (test vdhe=676) 94.6 fL 79.0-92.2 MEAN CORPUSCULAR HEMOGLOBIN (BEAKER) (test 32.0 pg 25.7-32.2 sjde=882) MEAN CORPUSCULAR HEMOGLOBIN CONC (BEAKER) (test 33.9 GM/DL 32.3-36.5 gukq=870) RED CELL DISTRIBUTION WIDTH (BEAKER) (test 17.6 % 11.6-14.4 vsay=494) PLATELET COUNT (BEAKER) (test mufu=893) 46 K/CU MM 150-450 MEAN PLATELET VOLUME (BEAKER) (test twkj=495) 9.3 fL 9.4-12.4 NUCLEATED RED BLOOD CELLS (BEAKER) (test 0 /100 WBC 0-0 ujot=377) NEUTROPHILS RELATIVE PERCENT (BEAKER) (test 66 % jjhu=962) LYMPHOCYTES RELATIVE PERCENT (BEAKER) (test 12 % fozu=752) MONOCYTES RELATIVE PERCENT (BEAKER) (test 15 % tfjc=902) EOSINOPHILS RELATIVE PERCENT (BEAKER) (test 6 % kbth=364) BASOPHILS RELATIVE PERCENT (BEAKER) (test 0 % liss=618) NEUTROPHILS ABSOLUTE COUNT (BEAKER) (test 1.92 K/ L 1.78-5.38 oteo=814) LYMPHOCYTES ABSOLUTE COUNT (BEAKER) (test 0.36 K/ L 1.32-3.57 hgfm=453) MONOCYTES ABSOLUTE COUNT (BEAKER) (test zlkg=427) 0.44 K/ L 0.30-0.82 EOSINOPHILS ABSOLUTE COUNT (BEAKER) (test 0.16 K/ L 0.04-0.54 hylf=677) BASOPHILS ABSOLUTE COUNT (BEAKER) (test yftn=052) 0.01 K/ L 0.01-0.08 IMMATURE GRANULOCYTES-RELATIVE PERCENT (BEAKER) 1 % 0-1 (test pcxc=3157) CBC W/PLT COUNT & AUTO [id number] 12:30:00 Test Item Value Reference Range Comments WHITE BLOOD CELL COUNT (BEAKER) (test gfnn=814) 3.1 K/ L 3.5-10.5 RED BLOOD CELL COUNT (BEAKER) (test ghye=218) 2.09 M/ L 4.63-6.08 HEMOGLOBIN (BEAKER) (test zksx=628) 6.8 GM/DL 13.7-17.5 HEMATOCRIT (BEAKER) (test yezn=235) 19.9 % 40.1-51.0 MEAN CORPUSCULAR VOLUME (BEAKER) (test eyso=372) 95.2 fL 79.0-92.2 MEAN CORPUSCULAR HEMOGLOBIN (BEAKER) (test 32.5 pg 25.7-32.2 xcai=379) MEAN CORPUSCULAR HEMOGLOBIN CONC (BEAKER) (test 34.2 GM/DL 32.3-36.5 xaof=699) RED CELL DISTRIBUTION WIDTH (BEAKER) (test 17.5 % 11.6-14.4 vsao=422) PLATELET COUNT (BEAKER) (test sfit=234) 65 K/CU MM 150-450 MEAN PLATELET VOLUME (BEAKER) (test qdlp=595) 10.6 fL 9.4-12.4 NUCLEATED RED BLOOD CELLS (BEAKER) (test 0 /100 WBC 0-0 gfkv=579) NEUTROPHILS RELATIVE PERCENT (BEAKER) (test 60 % jnqw=105) LYMPHOCYTES RELATIVE PERCENT (BEAKER) (test 14 % kirk=796) MONOCYTES RELATIVE PERCENT (BEAKER) (test 17 % smph=171) EOSINOPHILS RELATIVE PERCENT (BEAKER) (test 8 % gfct=921) BASOPHILS RELATIVE PERCENT (BEAKER) (test 0 % jetr=250) NEUTROPHILS ABSOLUTE COUNT (BEAKER) (test 1.85 K/ L 1.78-5.38 poui=888) LYMPHOCYTES ABSOLUTE COUNT (BEAKER) (test 0.42 K/ L 1.32-3.57 pzsu=310) MONOCYTES ABSOLUTE COUNT (BEAKER) (test isii=553) 0.52 K/ L 0.30-0.82 EOSINOPHILS ABSOLUTE COUNT (BEAKER) (test 0.26 K/ L 0.04-0.54 vlla=590) BASOPHILS ABSOLUTE COUNT (BEAKER) (test rjjn=841) 0.01 K/ L 0.01-0.08 IMMATURE GRANULOCYTES-RELATIVE PERCENT (BEAKER) 1 % 0-1 (test dtxa=2476) U/S, [id number] 06:59:00Limit fluid removal to no more than 5 litersReason for exam:->ascites, concern for sbpShould thisbe performed at the bedside?->NoFINAL REPORT Paracentesis dated 2017 Procedure: Ultrasound-guided paracentesis. Preprocedure diagnosis: Ascites Postprocedure diagnosis: Ascites Conscious sedation: None. Radiologist: Lena Lynn M.D. Supervisor [employer]: None Anesthesia: 1% Xylocaine mixed with sodium bicarbonate local anesthesia. Technique: After obtaining informed consent, ultrasound-guided paracentesis was performed under usual sterile technique. Using a 5 [place] drainage catheter, puncture was made in the right lower quadrant abdomen. Approximately 5000 cc of serous fluid was removed. Patient tolerated the procedure well without complication. Complication: None Graft/ Implant: None Estimated Blood Loss: NoneImpression: Ultrasound-guided paracentesis. Signed: Lena Lynn MDReport Verified Date/Time: 12/28/2017 06:59 :16 Reading Location: [facility] B1 C013Y CT Body Reading Room ALPHA FETOPROTEIN (AFP), TUMOR [id number] 06:22:00 Test Item Value Reference Range Comments ALPHA-FETOPROTEIN (BEAKER) (test vrgi=4546) 4.1 ng/mL <10.0 COMPREHENSIVE METABOLIC [id number] 06:00:00 Test Item Value Reference Range Comments TOTAL PROTEIN (BEAKER) 5.3 gm/dL 6.0-8.3 (test jusg=619) ALBUMIN (BEAKER) (test 2.7 g/dL 3.5-5.0 abay=3180) ALKALINE PHOSPHATASE 94 U/L 40-150 (BEAKER) (test tcnz=806) BILIRUBIN TOTAL (BEAKER) 3.7 mg/dL 0.2-1.2 (test duqz=694) SODIUM (BEAKER) (test 124 meq/L 136-145 vgrs=726) POTASSIUM (BEAKER) (test 4.6 meq/L 3.5-5.1 zcqd=740) CHLORIDE (BEAKER) (test 96 meq/L 98-107 cqco=592) CO2 (BEAKER) (test 22 meq/L 22-29 ldby=322) BLOOD UREA NITROGEN 22 mg/dL 7-21 (BEAKER) (test nbzr=602) CREATININE (BEAKER) (test 1.40 mg/dL 0.57-1.25 hsxa=517) GLUCOSE RANDOM (BEAKER) 89 mg/dL 70-105 (test keig=880) CALCIUM (BEAKER) (test 8.8 mg/dL 8.4-10.2 ojdo=440) AST (SGOT) (BEAKER) (test 25 U/L 5-34 gvmh=590) ALT (SGPT) (BEAKER) (test 10 U/L 6-55 nfqc=583) EGFR (BEAKER) (test 53 mL/min/1.73 sq m ESTIMATED GFR IS NOT xmnk=7077) ACCURATE CREATININE CLEARANCE IN PREDICTING GLOMERULAR FILTRATION RATE. ESTIMATED GFR IS NOT APPLICABLE FOR DIALYSIS PATIENTS. Specimen slightly ictericCBC W/PLT COUNT & AUTO [id number] 05:50 :00 Test Item Value Reference Range Comments WHITE BLOOD CELL COUNT (BEAKER) (test tvxq=780) 3.1 K/ L 3.5-10.5 RED BLOOD CELL COUNT (BEAKER) (test hcdd=571) 2.00 M/ L 4.63-6.08 HEMOGLOBIN (BEAKER) (test mwiq=100) 6.4 GM/DL 13.7-17.5 HEMATOCRIT (BEAKER) (test ndlc=998) 18.9 % 40.1-51.0 MEAN CORPUSCULAR VOLUME (BEAKER) (test zjdf=087) 94.5 fL 79.0-92.2 MEAN CORPUSCULAR HEMOGLOBIN (BEAKER) (test 32.0 pg 25.7-32.2 xvbm=714) MEAN CORPUSCULAR HEMOGLOBIN CONC (BEAKER) (test 33.9 GM/DL 32.3-36.5 yqvf=477) RED CELL DISTRIBUTION WIDTH (BEAKER) (test 17.9 % 11.6-14.4 jgse=345) PLATELET COUNT (BEAKER) (test yllz=437) 59 K/CU MM 150-450 MEAN PLATELET VOLUME (BEAKER) (test kfhs=453) 10.4 fL 9.4-12.4 NUCLEATED RED BLOOD CELLS (BEAKER) (test 0 /100 WBC 0-0 rbot=186) NEUTROPHILS RELATIVE PERCENT (BEAKER) (test 63 % qgel=700) LYMPHOCYTES RELATIVE PERCENT (BEAKER) (test 14 % unpn=096) MONOCYTES RELATIVE PERCENT (BEAKER) (test 15 % dvnn=638) EOSINOPHILS RELATIVE PERCENT (BEAKER) (test 7 % srjg=630) BASOPHILS RELATIVE PERCENT (BEAKER) (test 0 % ctgy=106) NEUTROPHILS ABSOLUTE COUNT (BEAKER) (test 1.94 K/ L 1.78-5.38 vycl=196) LYMPHOCYTES ABSOLUTE COUNT (BEAKER) (test 0.44 K/ L 1.32-3.57 kblb=035) MONOCYTES ABSOLUTE COUNT (BEAKER) (test vdee=860) 0.47 K/ L 0.30-0.82 EOSINOPHILS ABSOLUTE COUNT (BEAKER) (test 0.21 K/ L 0.04-0.54 wkap=696) BASOPHILS ABSOLUTE COUNT (BEAKER) (test wcop=253) 0.01 K/ L 0.01-0.08 IMMATURE GRANULOCYTES-RELATIVE PERCENT (BEAKER) 1 % 0-1 (test jice=0711) BODY FLUID CELL COUNT WITH [id number] 20:39:00 Test Item Value Reference Range Comments APPEARANCE FLUID (BEAKER) (test jkuc=299) Slightly Hazy Clear COLOR FLUID (BEAKER) (test tkyf=591) Yellow Colorless, Straw RBC FLUID (BEAKER) (test wjip=208) 90 /cu mm <=1 ADJUSTED WBC FLUID (BEAKER) (test omao=3876) 47 /cu mm <=5 LINING CELLS (BEAKER) (test xcdz=7665) 3 /cu mm <=1 NEUTROPHILS FLUID (BEAKER) (test ohqz=8512) 2 % LYMPHS FLUID (BEAKER) (test qdhe=925) 19 % MONO/MACROPHAGE FLUID (BEAKER) (test 79 % boah=232) EOSINOPHILS FLUID (BEAKER) (test xuhu=082) 0 % BASO FLUID (BEAKER) (test ggcg=445) 0 % CONTAINER BODY FLUID (BEAKER) (test EDTA Tube lkon=8627) ALBUMIN, BODY [id number] 20:14:00 Test Item Value Reference Range Comments ALBUMIN FLUID (BEAKER) (test rvgj=294) 0.4 gm/dL Reference Range: No Normals Assay performance has not been validated for this type of specimen.BASIC METABOLIC [id number] 10:31:00 Test Item Value Reference Range Comments SODIUM (BEAKER) (test 125 meq/L 136-145 rgsl=857) POTASSIUM (BEAKER) (test 4.5 meq/L 3.5-5.1 pkba=893) CHLORIDE (BEAKER) (test 98 meq/L 98-107 lewv=107) CO2 (BEAKER) (test 20 meq/L 22-29 weaw=418) BLOOD UREA NITROGEN 22 mg/dL 7-21 (BEAKER) (test uvxq=594) CREATININE (BEAKER) (test 1.45 mg/dL 0.57-1.25 qeuw=723) GLUCOSE RANDOM (BEAKER) 87 mg/dL 70-105 (test hbdq=498) CALCIUM (BEAKER) (test 8.6 mg/dL 8.4-10.2 dyjm=647) EGFR (BEAKER) (test 51 mL/min/1.73 sq m ESTIMATED GFR IS NOT blab=5531) ACCURATE CREATININE CLEARANCE IN PREDICTING GLOMERULAR FILTRATION RATE. ESTIMATED GFR IS NOT APPLICABLE FOR DIALYSIS PATIENTS. Specimen slightly ictericHEPATIC FUNCTION [id number] 10:31:00 Test Item Value Reference Range Comments TOTAL PROTEIN (BEAKER) (test eqhc=154) 5.8 gm/dL 6.0-8.3 ALBUMIN (BEAKER) (test ezvo=5131) 2.4 g/dL 3.5-5.0 BILIRUBIN TOTAL (BEAKER) (test piot=289) 4.1 mg/dL 0.2-1.2 BILIRUBIN DIRECT (BEAKER) (test ytkk=284) 3.1 mg/dL 0.1-0.5 ALKALINE PHOSPHATASE (BEAKER) (test zrna=423) 126 U/L 40-150 AST (SGOT) (BEAKER) (test oeav=850) 28 U/L 5-34 ALT (SGPT) (BEAKER) (test zerb=470) 13 U/L 6-55 Specimen slightly ictericCBC W/PLT COUNT & AUTO [id number] 10:09 :00 Test Item Value Reference Range Comments WHITE BLOOD CELL COUNT (BEAKER) (test zdqv=008) 5.5 K/ L 3.5-10.5 RED BLOOD CELL COUNT (BEAKER) (test ryei=140) 2.56 M/ L 4.63-6.08 HEMOGLOBIN (BEAKER) (test nqqo=107) 8.1 GM/DL 13.7-17.5 HEMATOCRIT (BEAKER) (test lcak=801) 24.2 % 40.1-51.0 MEAN CORPUSCULAR VOLUME (BEAKER) (test dakc=378) 94.5 fL 79.0-92.2 MEAN CORPUSCULAR HEMOGLOBIN (BEAKER) (test 31.6 pg 25.7-32.2 hfia=170) MEAN CORPUSCULAR HEMOGLOBIN CONC (BEAKER) (test 33.5 GM/DL 32.3-36.5 xlqg=045) RED CELL DISTRIBUTION WIDTH (BEAKER) (test 18.6 % 11.6-14.4 opgl=881) PLATELET COUNT (BEAKER) (test wcme=225) 86 K/CU MM 150-450 MEAN PLATELET VOLUME (BEAKER) (test ohxr=746) 9.7 fL 9.4-12.4 NUCLEATED RED BLOOD CELLS (BEAKER) (test 0 /100 WBC 0-0 bsjd=592) NEUTROPHILS RELATIVE PERCENT (BEAKER) (test 65 % qiqh=030) LYMPHOCYTES RELATIVE PERCENT (BEAKER) (test 13 % oxzn=960) MONOCYTES RELATIVE PERCENT (BEAKER) (test 14 % eofc=017) EOSINOPHILS RELATIVE PERCENT (BEAKER) (test 6 % nsla=368) BASOPHILS RELATIVE PERCENT (BEAKER) (test 0 % oxkg=959) NEUTROPHILS ABSOLUTE COUNT (BEAKER) (test 3.59 K/ L 1.78-5.38 odwl=877) LYMPHOCYTES ABSOLUTE COUNT (BEAKER) (test 0.73 K/ L 1.32-3.57 wjzr=533) MONOCYTES ABSOLUTE COUNT (BEAKER) (test rzmw=354) 0.76 K/ L 0.30-0.82 EOSINOPHILS ABSOLUTE COUNT (BEAKER) (test 0.33 K/ L 0.04-0.54 jbpm=721) BASOPHILS ABSOLUTE COUNT (BEAKER) (test srgu=286) 0.02 K/ L 0.01-0.08 IMMATURE GRANULOCYTES-RELATIVE PERCENT (BEAKER) 1 % 0-1 (test mnsb=6256) PROTHROMBIN [id number] 07:51:00 Test Item Value Reference Range Comments PROTIME (BEAKER) (test aqvb=304) 23.8 seconds 11.7-14.7 INR (BEAKER) (test ottp=665) 2.1 <=5.9 RECOMMENDED COUMADIN/WARFARIN INR THERAPY RANGESSTANDARD DOSE: 2.0 - 3.0 Includes: PROPHYLAXIS forvenous thrombosis, systemic embolization; TREATMENT for venous thrombosis and/or pulmonary embolus.HIGH RISK: Target INR is 2.5-3.5 for patients with mechanical heart valves.BLOOD [id number] 05:02:00 Test Item Value Reference Range Comments CULTURE (BEAKER) (test srsn=0169) No growth in 5 days BLOOD [id number] 05:02:00 Test Item Value Reference Range Comments CULTURE (BEAKER) (test yrbp=4693) No growth in 5 days BODY FLUID CULTURE + GRAM [id number] 09:05:00 Test Item Value Reference Range Comments CULTURE (BEAKER) (test hniw=1805) No growth GRAM STAIN RESULT (BEAKER) (test No White blood cells seen flub=1399) GRAM STAIN RESULT (BEAKER) (test No organisms seen xfrb=61854) RAPID DRUG SCREEN, [id number] 23:13:00 Test Item Value Reference Range Comments BARBITURATE URINE (BEAKER) (test tylr=598) Negative Negative BENZODIAZEPINE SCREEN URINE (BEAKER) (test Negative Negative kxkm=210) COCAINE (METAB.) SCREEN (BEAKER) (test mmwb=2234) Negative Negative METHADONE SCREEN (BEAKER) (test zgvy=5594) Negative Negative OPIATE SCREEN URINE (BEAKER) (test jjms=659) Negative Negative CANNABINOID SCREEN URINE (BEAKER) (test owov=738) Negative Negative AMPH/METHAMPH SCREEN (BEAKER) (test mdwd=0936) Negative Negative PHENCYCLIDINE SCREEN URINE (BEAKER) (test dehg=332) Negative Negative OXYCODONE SCREEN URINE (BEAKER) (test lmjm=2963) Negative Negative DRUG CUTOFF CONC.Cocaine 300 ng/mL Cannabinoid 50 ng/mL Benzodiazepine 200 ng/mLBarbiturate 200 ng/ mLPhencyclidine 25 ng/mLOpiate 300 ng/mLMethadone 300 ng/mLAmphetamine/ 1000 ng/mL MethamphetamineOxycodone 300 ng/mLThis assay provides an unconfirmed qualitative test result for the clinical management of patients in emergency situations. Chain of custody not maintained. Some dgzm-xzc-nrphdwx medications, as well as adulterants, may cause inaccurate results. Clinical correlation should be applied. A more comprehensive drug screen or confirmation of a detected drug may be performed upon request.MR, ABDOMEN, [id number] 13:52:00FINAL REPORT MRI of the abdomen with [...] MDReport Verified Date/Time: 09/05/2017 13:52:35 Reading Location: [address] BodyReading Room CBC W/PLT COUNT & AUTO [id number] 05:46:00 Test Item Value Reference Range Comments WHITE BLOOD CELL COUNT (BEAKER) (test aovr=009) 4.7 K/ L 3.5-10.5 RED BLOOD CELL COUNT (BEAKER) (test qmzp=659) 2.49 M/ L 4.63-6.08 HEMOGLOBIN (BEAKER) (test hfax=220) 7.9 GM/DL 13.7-17.5 HEMATOCRIT (BEAKER) (test ykxa=691) 22.6 % 40.1-51.0 MEAN CORPUSCULAR VOLUME (BEAKER) (test vlmu=150) 90.8 fL 79.0-92.2 MEAN CORPUSCULAR HEMOGLOBIN (BEAKER) (test 31.7 pg 25.7-32.2 shkf=610) MEAN CORPUSCULAR HEMOGLOBIN CONC (BEAKER) (test 35.0 GM/DL 32.3-36.5 dmrq=228) RED CELL DISTRIBUTION WIDTH (BEAKER) (test 18.8 % 11.6-14.4 axpu=321) PLATELET COUNT (BEAKER) (test mxob=191) 60 K/CU MM 150-450 MEAN PLATELET VOLUME (BEAKER) (test vtgx=301) 9.2 fL 9.4-12.4 NUCLEATED RED BLOOD CELLS (BEAKER) (test 0 /100 WBC 0-0 uqxh=151) NEUTROPHILS RELATIVE PERCENT (BEAKER) (test 65 % fwsq=614) LYMPHOCYTES RELATIVE PERCENT (BEAKER) (test 13 % mkop=869) MONOCYTES RELATIVE PERCENT (BEAKER) (test 15 % wbun=104) EOSINOPHILS RELATIVE PERCENT (BEAKER) (test 6 % ocxe=040) BASOPHILS RELATIVE PERCENT (BEAKER) (test 0 % adol=928) NEUTROPHILS ABSOLUTE COUNT (BEAKER) (test 3.05 K/ L 1.78-5.38 iisg=145) LYMPHOCYTES ABSOLUTE COUNT (BEAKER) (test 0.62 K/ L 1.32-3.57 gbyz=337) MONOCYTES ABSOLUTE COUNT (BEAKER) (test ived=977) 0.68 K/ L 0.30-0.82 EOSINOPHILS ABSOLUTE COUNT (BEAKER) (test 0.28 K/ L 0.04-0.54 kmtm=232) BASOPHILS ABSOLUTE COUNT (BEAKER) (test qaej=481) 0.02 K/ L 0.01-0.08 IMMATURE GRANULOCYTES-RELATIVE PERCENT (BEAKER) 1 % 0-1 (test ogoe=6978) BASIC METABOLIC [id number] 05:44:00 Test Item Value Reference Range Comments SODIUM (BEAKER) (test 127 meq/L 136-145 ljwu=205) POTASSIUM (BEAKER) (test 4.5 meq/L 3.5-5.1 pxje=462) CHLORIDE (BEAKER) (test 101 meq/L 98-107 rxke=022) CO2 (BEAKER) (test 19 meq/L 22-29 baxb=186) BLOOD UREA NITROGEN 17 mg/dL 7-21 (BEAKER) (test cibz=118) CREATININE (BEAKER) (test 0.91 mg/dL 0.57-1.25 vvxr=790) GLUCOSE RANDOM (BEAKER) 107 mg/dL 70-105 (test havg=700) CALCIUM (BEAKER) (test 9.4 mg/dL 8.4-10.2 yqjl=294) EGFR (BEAKER) (test 87 mL/min/1.73 sq m ESTIMATED GFR IS NOT sfuz=1278) ACCURATE CREATININE CLEARANCE IN PREDICTING GLOMERULAR FILTRATION RATE. ESTIMATED GFR IS NOT APPLICABLE FOR DIALYSIS PATIENTS. Specimen moderately ictericHEPATIC FUNCTION [id number] 05:44:00 Test Item Value Reference Range Comments TOTAL PROTEIN (BEAKER) (test sucg=020) 5.6 gm/dL 6.0-8.3 ALBUMIN (BEAKER) (test skcl=8422) 3.3 g/dL 3.5-5.0 BILIRUBIN TOTAL (BEAKER) (test pstw=455) 10.3 mg/dL 0.2-1.2 BILIRUBIN DIRECT (BEAKER) (test yumk=189) 6.8 mg/dL 0.1-0.5 ALKALINE PHOSPHATASE (BEAKER) (test ihrf=894) 103 U/L 40-150 AST (SGOT) (BEAKER) (test qrga=320) 17 U/L 5-34 ALT (SGPT) (BEAKER) (test cmav=728) 8 U/L 6-55 Specimen moderately ictericPT/[id number] 05:31:00 Test Item Value Reference Range Comments PROTIME (BEAKER) (test nxeu=729) 25.6 seconds 11.7-14.7 INR (BEAKER) (test hiud=786) 2.3 <=5.9 PARTIAL THROMBOPLASTIN TIME (BEAKER) (test 51.6 seconds 22.5-36.0 ysvk=502) RECOMMENDED COUMADIN/WARFARIN INR THERAPY RANGESSTANDARD DOSE: 2.0 - 3.0 Includes: PROPHYLAXIS forvenous thrombosis, systemic embolization; TREATMENT for venous thrombosis and/or pulmonary embolus.HIGH RISK: Target INR is 2.5-3.5 for patients with mechanical heart valves.PROTHROMBIN TIME/[id number] 05:30: 00 Test Item Value Reference Range Comments PROTIME (BEAKER) (test cdbe=747) 25.6 seconds 11.7-14.7 INR (BEAKER) (test jmoe=863) 2.3 <=5.9 RECOMMENDED COUMADIN/WARFARIN INR THERAPY RANGESSTANDARD DOSE: 2.0 - 3.0 Includes: PROPHYLAXIS forvenous thrombosis, systemic embolization; TREATMENT for venous thrombosis and/or pulmonary embolus.HIGH RISK: Target INR is 2.5-3.5 for patients with mechanical heart valves.BODY FLUID CELL COUNT WITH [id number] 19:30:00 Test Item Value Reference Range Comments APPEARANCE FLUID (BEAKER) (test nmmk=605) Slightly Hazy Clear COLOR FLUID (BEAKER) (test ekua=824) Yellow Colorless, Straw RBC FLUID (BEAKER) (test jjad=760) 100 /cu mm <=1 ADJUSTED WBC FLUID (BEAKER) (test axmo=7921) 36 /cu mm <=5 LINING CELLS (BEAKER) (test vwft=5306) 4 /cu mm <=1 NEUTROPHILS FLUID (BEAKER) (test grvo=7054) 0 % LYMPHS FLUID (BEAKER) (test yovt=337) 20 % MONO/MACROPHAGE FLUID (BEAKER) (test 80 % tbnl=499) EOSINOPHILS FLUID (BEAKER) (test uxtf=449) 0 % BASO FLUID (BEAKER) (test oykq=715) 0 % CONTAINER BODY FLUID (BEAKER) (test EDTA Tube gsgp=1791) U/S, [id number] 16:21:00Reason for exam:->ascitesShould this be performed at the bedside?->NoFINAL REPORT PROCEDURE: Ultrasound-guided paracentesis. INDICATION: 52-year-old man with ascites. DESCRIPTION: After obtaining informed written consent, ultrasound scan of the abdomen identified ascites in the right lower quadrant. The overlying skin was prepped and draped in the usual, sterile fashion and local 1% lidocaine anesthesia was administered. A 5 [place]i catheter was advanced into the peritoneal cavity and 13,200 cc of cloudy yellow fluid was removed. The catheter was removed without immediate complication. Samples were sent for analysis. IMPRESSION:Uncomplicated ultrasound-guided paracentesis with 13,200 cc fluid removed. Signed: Candice Mckeon Verified Date/Time: 2016 16:21:22 Reading Location: [address] Ultrasound Reading Room [facility] [id number] 11:07:00 Test Item Value Reference Range Comments SODIUM (BEAKER) (test 127 meq/L 136-145 darp=149) POTASSIUM (BEAKER) (test 4.1 meq/L 3.5-5.1 vyac=127) CHLORIDE (BEAKER) (test 101 meq/L 98-107 glik=007) CO2 (BEAKER) (test 23 meq/L 22-29 jprr=349) BLOOD UREA NITROGEN 17 mg/dL 7-21 (BEAKER) (test gwam=095) CREATININE (BEAKER) (test 1.06 mg/dL 0.57-1.25 tuzf=179) GLUCOSE RANDOM (BEAKER) 104 mg/dL 70-105 (test rtyr=008) CALCIUM (BEAKER) (test 8.9 mg/dL 8.4-10.2 gzbd=567) EGFR (BEAKER) (test 73 mL/min/1.73 sq m ESTIMATED GFR IS NOT heaj=1243) ACCURATE CREATININE CLEARANCE IN PREDICTING GLOMERULAR FILTRATION RATE. ESTIMATED GFR IS NOT APPLICABLE FOR DIALYSIS PATIENTS. Specimen markedly ictericHEPATIC FUNCTION [id number] 11:07:00 Test Item Value Reference Range Comments TOTAL PROTEIN (BEAKER) (test krxo=776) 5.4 gm/dL 6.0-8.3 ALBUMIN (BEAKER) (test vgdg=5620) 2.8 g/dL 3.5-5.0 BILIRUBIN TOTAL (BEAKER) (test vuma=846) 12.7 mg/dL 0.2-1.2 BILIRUBIN DIRECT (BEAKER) (test vrht=552) 7.8 mg/dL 0.1-0.5 ALKALINE PHOSPHATASE (BEAKER) (test yexe=243) 90 U/L 40-150 AST (SGOT) (BEAKER) (test cxgm=898) 22 U/L 5-34 ALT (SGPT) (BEAKER) (test iwen=117) 11 U/L 6-55 Specimen markedly ictericPT/[id number] 11:02:00 Test Item Value Reference Range Comments PROTIME (BEAKER) (test xxmf=631) 23.4 seconds 11.7-14.7 INR (BEAKER) (test bsbz=048) 2.1 <=5.9 PARTIAL THROMBOPLASTIN TIME (BEAKER) (test 48.7 seconds 22.5-36.0 fznt=725) RECOMMENDED COUMADIN/WARFARIN INR THERAPY RANGESSTANDARD DOSE: 2.0 - 3.0 Includes: PROPHYLAXIS forvenous thrombosis, systemic embolization; TREATMENT for venous thrombosis and/or pulmonary embolus.HIGH RISK: Target INR is 2.5-3.5 for patients with mechanical heart valves.PROTHROMBIN TIME/[id number] 11:01: 00 Test Item Value Reference Range Comments PROTIME (BEAKER) (test nkwz=560) 23.4 seconds 11.7-14.7 INR (BEAKER) (test eteo=367) 2.1 <=5.9 RECOMMENDED COUMADIN/WARFARIN INR THERAPY RANGESSTANDARD DOSE: 2.0 - 3.0 Includes: PROPHYLAXIS forvenous thrombosis, systemic embolization; TREATMENT for venous thrombosis and/or pulmonary embolus.HIGH RISK: Target INR is 2.5-3.5 for patients with mechanical heart valves.CBC W/PLT COUNT & AUTO [id number] 10:56:00 Test Item Value Reference Range Comments WHITE BLOOD CELL COUNT (BEAKER) (test kbur=407) 4.4 K/ L 3.5-10.5 RED BLOOD CELL COUNT (BEAKER) (test phis=786) 2.48 M/ L 4.63-6.08 HEMOGLOBIN (BEAKER) (test dbge=050) 7.8 GM/DL 13.7-17.5 HEMATOCRIT (BEAKER) (test votq=010) 22.7 % 40.1-51.0 MEAN CORPUSCULAR VOLUME (BEAKER) (test nbox=477) 91.5 fL 79.0-92.2 MEAN CORPUSCULAR HEMOGLOBIN (BEAKER) (test 31.5 pg 25.7-32.2 xnch=407) MEAN CORPUSCULAR HEMOGLOBIN CONC (BEAKER) (test 34.4 GM/DL 32.3-36.5 zwpp=075) RED CELL DISTRIBUTION WIDTH (BEAKER) (test 18.6 % 11.6-14.4 wpht=923) PLATELET COUNT (BEAKER) (test zacz=460) 60 K/CU MM 150-450 MEAN PLATELET VOLUME (BEAKER) (test xvul=914) 8.8 fL 9.4-12.4 NUCLEATED RED BLOOD CELLS (BEAKER) (test 0 /100 WBC 0-0 ojht=388) NEUTROPHILS RELATIVE PERCENT (BEAKER) (test 61 % rlgj=511) LYMPHOCYTES RELATIVE PERCENT (BEAKER) (test 9 % xuwa=092) MONOCYTES RELATIVE PERCENT (BEAKER) (test 21 % iyqs=125) EOSINOPHILS RELATIVE PERCENT (BEAKER) (test 8 % laaf=297) BASOPHILS RELATIVE PERCENT (BEAKER) (test 1 % lnjx=446) NEUTROPHILS ABSOLUTE COUNT (BEAKER) (test 2.68 K/ L 1.78-5.38 vvdk=646) LYMPHOCYTES ABSOLUTE COUNT (BEAKER) (test 0.38 K/ L 1.32-3.57 imkl=073) MONOCYTES ABSOLUTE COUNT (BEAKER) (test rohb=779) 0.94 K/ L 0.30-0.82 EOSINOPHILS ABSOLUTE COUNT (BEAKER) (test 0.33 K/ L 0.04-0.54 nocu=080) BASOPHILS ABSOLUTE COUNT (BEAKER) (test lzqu=170) 0.02 K/ L 0.01-0.08 IMMATURE GRANULOCYTES-RELATIVE PERCENT (BEAKER) 1 % 0-1 (test mjnc=6856) URINALYSIS W/ [id number] 06:18:00 Test Item Value Reference Range Comments COLOR (BEAKER) (test xnnw=844) Dark Yellow CLARITY (BEAKER) (test nxmg=903) Clear SPECIFIC GRAVITY UA (BEAKER) (test leyr=343) 1.008 1.001-1.035 PH UA (BEAKER) (test msjz=480) 6.0 5.0-8.0 PROTEIN UA (BEAKER) (test guor=729) Negative Negative GLUCOSE UA (BEAKER) (test gbno=531) Negative Negative KETONES UA (BEAKER) (test gfhw=146) Negative Negative BILIRUBIN UA (BEAKER) (test hstd=684) Positive Negative BLOOD UA (BEAKER) (test zjbg=697) Moderate Negative NITRITE UA (BEAKER) (test mvny=667) Negative Negative LEUKOCYTE ESTERASE UA (BEAKER) (test euip=027) Negative Negative UROBILINOGEN UA (BEAKER) (test jkhm=284) 0.2 mg/dL 0.2-1.0 RBC UA (BEAKER) (test wwna=781) 80 /HPF WBC UA (BEAKER) (test oreh=081) 10 /HPF HYALINE CASTS (BEAKER) (test uyil=231) 5 /LPF AMORPHOUS CRYSTALS (BEAKER) (test uxcd=8727) Rare SOURCE(BEAKER) (test eliu=3456) CBC W/PLT COUNT & AUTO [id number] 00:00:00 Test Item Value Reference Range Comments WHITE BLOOD CELL COUNT (BEAKER) (test wewn=192) 3.7 K/ L 3.5-10.5 RED BLOOD CELL COUNT (BEAKER) (test cexy=419) 2.20 M/ L 4.63-6.08 HEMOGLOBIN (BEAKER) (test axdi=118) 7.0 GM/DL 13.7-17.5 HEMATOCRIT (BEAKER) (test yyvl=315) 20.2 % 40.1-51.0 MEAN CORPUSCULAR VOLUME (BEAKER) (test ghqd=387) 91.8 fL 79.0-92.2 MEAN CORPUSCULAR HEMOGLOBIN (BEAKER) (test 31.8 pg 25.7-32.2 yask=146) MEAN CORPUSCULAR HEMOGLOBIN CONC (BEAKER) (test 34.7 GM/DL 32.3-36.5 kobu=178) RED CELL DISTRIBUTION WIDTH (BEAKER) (test 19.3 % 11.6-14.4 peat=030) PLATELET COUNT (BEAKER) (test qavq=250) 63 K/CU MM 150-450 MEAN PLATELET VOLUME (BEAKER) (test zjru=000) 9.1 fL 9.4-12.4 NUCLEATED RED BLOOD CELLS (BEAKER) (test 0 /100 WBC 0-0 txmo=932) NEUTROPHILS RELATIVE PERCENT (BEAKER) (test 62 % ugxf=660) LYMPHOCYTES RELATIVE PERCENT (BEAKER) (test 11 % miez=648) MONOCYTES RELATIVE PERCENT (BEAKER) (test 19 % gzad=236) EOSINOPHILS RELATIVE PERCENT (BEAKER) (test 7 % vivv=427) BASOPHILS RELATIVE PERCENT (BEAKER) (test 1 % soie=789) NEUTROPHILS ABSOLUTE COUNT (BEAKER) (test 2.29 K/ L 1.78-5.38 droo=573) LYMPHOCYTES ABSOLUTE COUNT (BEAKER) (test 0.39 K/ L 1.32-3.57 xdse=816) MONOCYTES ABSOLUTE COUNT (BEAKER) (test giis=810) 0.71 K/ L 0.30-0.82 EOSINOPHILS ABSOLUTE COUNT (BEAKER) (test 0.27 K/ L 0.04-0.54 ahdp=577) BASOPHILS ABSOLUTE COUNT (BEAKER) (test luae=294) 0.02 K/ L 0.01-0.08 IMMATURE GRANULOCYTES-RELATIVE PERCENT (BEAKER) 1 % 0-1 (test vfgz=4495) PROTHROMBIN [id number] 22:52:00 Test Item Value Reference Range Comments PROTIME (BEAKER) (test acgp=072) 25.6 seconds 11.7-14.7 INR (BEAKER) (test qbus=818) 2.3 <=5.9 RECOMMENDED COUMADIN/WARFARIN INR THERAPY RANGESSTANDARD DOSE: 2.0 - 3.0 Includes: PROPHYLAXIS forvenous thrombosis, systemic embolization; TREATMENT for venous thrombosis and/or pulmonary embolus.HIGH RISK: Target INR is 2.5-3.5 for patients with mechanical heart valves.[id number] 22:52:00 Test Item Value Reference Range Comments MAGNESIUM (BEAKER) (test azge=579) 1.3 mg/dL 1.6-2.6 BASIC METABOLIC [id number] 22:52:00 Test Item Value Reference Range Comments SODIUM (BEAKER) (test 124 meq/L 136-145 esfi=851) POTASSIUM (BEAKER) (test 4.1 meq/L 3.5-5.1 cruj=164) CHLORIDE (BEAKER) (test 99 meq/L 98-107 zobv=091) CO2 (BEAKER) (test 18 meq/L 22-29 utdm=470) BLOOD UREA NITROGEN 16 mg/dL 7-21 (BEAKER) (test kgkb=496) CREATININE (BEAKER) (test 0.97 mg/dL 0.57-1.25 ierj=546) GLUCOSE RANDOM (BEAKER) 99 mg/dL 70-105 (test uqwk=852) CALCIUM (BEAKER) (test 8.7 mg/dL 8.4-10.2 cwrx=073) EGFR (BEAKER) (test 81 mL/min/1.73 sq m ESTIMATED GFR IS NOT qtck=5832) ACCURATE CREATININE CLEARANCE IN PREDICTING GLOMERULAR FILTRATION RATE. ESTIMATED GFR IS NOT APPLICABLE FOR DIALYSIS PATIENTS. Specimen markedly ictericHEPATIC FUNCTION [id number] 22:52:00 Test Item Value Reference Range Comments TOTAL PROTEIN (BEAKER) (test tanj=287) 5.3 gm/dL 6.0-8.3 ALBUMIN (BEAKER) (test elkk=0762) 2.8 g/dL 3.5-5.0 BILIRUBIN TOTAL (BEAKER) (test etiu=162) 12.7 mg/dL 0.2-1.2 BILIRUBIN DIRECT (BEAKER) (test xmks=532) 7.6 mg/dL 0.1-0.5 ALKALINE PHOSPHATASE (BEAKER) (test hgin=395) 93 U/L 40-150 AST (SGOT) (BEAKER) (test caxz=442) 21 U/L 5-34 ALT (SGPT) (BEAKER) (test dtsr=160) 9 U/L 6-55 Specimen markedly ictericALPHA FETOPROTEIN (AFP), TUMOR [id number] 16:39: 00 Test Item Value Reference Range Comments ALPHA-FETOPROTEIN (BEAKER) (test kdqn=7060) 2.5 ng/mL <10.0 BASIC METABOLIC [id number] 15:53:00 Test Item Value Reference Range Comments SODIUM (BEAKER) (test 126 meq/L 136-145 bjea=825) POTASSIUM (BEAKER) (test 5.1 meq/L 3.5-5.1 jepo=371) CHLORIDE (BEAKER) (test 101 meq/L 98-107 dksu=482) CO2 (BEAKER) (test 19 meq/L 22-29 kwlr=178) BLOOD UREA NITROGEN 14 mg/dL 7-21 (BEAKER) (test dhbj=272) CREATININE (BEAKER) (test 1.01 mg/dL 0.57-1.25 fgzy=103) GLUCOSE RANDOM (BEAKER) 104 mg/dL 70-105 (test yswc=751) CALCIUM (BEAKER) (test 9.0 mg/dL 8.4-10.2 calj=373) EGFR (BEAKER) (test 78 mL/min/1.73 sq m ESTIMATED GFR IS NOT jcml=2486) ACCURATE CREATININE CLEARANCE IN PREDICTING GLOMERULAR FILTRATION RATE. ESTIMATED GFR IS NOT APPLICABLE FOR DIALYSIS PATIENTS. Specimen moderately ictericHEPATIC FUNCTION [id number] 15:53:00 Test Item Value Reference Range Comments TOTAL PROTEIN (BEAKER) (test vwgv=506) 6.1 gm/dL 6.0-8.3 ALBUMIN (BEAKER) (test gfpp=7718) 2.6 g/dL 3.5-5.0 BILIRUBIN TOTAL (BEAKER) (test tlck=967) 10.4 mg/dL 0.2-1.2 BILIRUBIN DIRECT (BEAKER) (test hnnf=818) 7.5 mg/dL 0.1-0.5 ALKALINE PHOSPHATASE (BEAKER) (test xmjd=651) 124 U/L 40-150 AST (SGOT) (BEAKER) (test gmpm=478) 29 U/L 5-34 ALT (SGPT) (BEAKER) (test wspd=186) 12 U/L 6-55 Specimen moderately ictericGAMMA GLUTAMYL TRANSFERASE (GGT)[id number] 15:53:00 Test Item Value Reference Range Comments GAMMA GLUTAMYL TRANSFERASE (BEAKER) (test dfsf=569) 17 U/L 9-64 Specimen moderately ictericPROTHROMBIN [id number] 15:40:00 Test Item Value Reference Range Comments PROTIME (BEAKER) (test upnf=226) 22.6 seconds 11.7-14.7 INR (BEAKER) (test eejc=894) 2.0 <=5.9 RECOMMENDED COUMADIN/WARFARIN INR THERAPY RANGESSTANDARD DOSE: 2.0 - 3.0 Includes: PROPHYLAXIS forvenous thrombosis, systemic embolization; TREATMENT for venous thrombosis and/or pulmonary embolus.HIGH RISK: Target INR is 2.5-3.5 for patients with mechanical heart valves.CBC W/PLT COUNT & AUTO [id number] 15:38:00 Test Item Value Reference Range Comments WHITE BLOOD CELL COUNT (BEAKER) (test wtav=783) 7.3 K/ L 3.5-10.5 RED BLOOD CELL COUNT (BEAKER) (test xxvi=718) 2.78 M/ L 4.63-6.08 HEMOGLOBIN (BEAKER) (test ukeg=687) 9.1 GM/DL 13.7-17.5 HEMATOCRIT (BEAKER) (test vlgk=600) 27.3 % 40.1-51.0 MEAN CORPUSCULAR VOLUME (BEAKER) (test asru=274) 98.2 fL 79.0-92.2 MEAN CORPUSCULAR HEMOGLOBIN (BEAKER) (test 32.7 pg 25.7-32.2 btpy=790) MEAN CORPUSCULAR HEMOGLOBIN CONC (BEAKER) (test 33.3 GM/DL 32.3-36.5 rnms=538) RED CELL DISTRIBUTION WIDTH (BEAKER) (test 16.4 % 11.6-14.4 gszv=348) PLATELET COUNT (BEAKER) (test dcno=173) 71 K/CU MM 150-450 MEAN PLATELET VOLUME (BEAKER) (test negi=178) 9.1 fL 9.4-12.4 NUCLEATED RED BLOOD CELLS (BEAKER) (test 0 /100 WBC 0-0 ygwc=689) NEUTROPHILS RELATIVE PERCENT (BEAKER) (test 71 % uicq=204) LYMPHOCYTES RELATIVE PERCENT (BEAKER) (test 8 % pzmx=527) MONOCYTES RELATIVE PERCENT (BEAKER) (test 15 % mcoa=136) EOSINOPHILS RELATIVE PERCENT (BEAKER) (test 5 % ybam=885) BASOPHILS RELATIVE PERCENT (BEAKER) (test 0 % yzam=105) NEUTROPHILS ABSOLUTE COUNT (BEAKER) (test 5.13 K/ L 1.78-5.38 nwmn=600) LYMPHOCYTES ABSOLUTE COUNT (BEAKER) (test 0.59 K/ L 1.32-3.57 nkdy=360) MONOCYTES ABSOLUTE COUNT (BEAKER) (test ptja=816) 1.06 K/ L 0.30-0.82 EOSINOPHILS ABSOLUTE COUNT (BEAKER) (test 0.33 K/ L 0.04-0.54 dgqo=632) BASOPHILS ABSOLUTE COUNT (BEAKER) (test gdyp=182) 0.03 K/ L 0.01-0.08 IMMATURE GRANULOCYTES-RELATIVE PERCENT (BEAKER) 2 % 0-1 (test uejq=6932) FUNGUS CULTURE + [id number] 07:22:00 Test Item Value Reference Range Comments CULTURE (BEAKER) (test No fungus isolated in 28 days gach=0458) FUNGUS SMEAR (BEAKER) (test No fungi seen xvzb=3254) HISTOPLASMA ANTIGEN, [id number] 08:01:00 Test Item Value Reference Range Comments SCAN RESULT (test ipzj=[id number]) TISSUE [id number] 10:58:00 Test Item Value Reference Range Comments LAB AP CPT CODE (BEAKER) (test robt=0741) 150[address] BLOOD [id number] 16:15:00 Test Item Value Reference Range Comments CULTURE (BEAKER) (test rozd=0402) No growth in 5 days BLOOD [id number] 16:15:00 Test Item Value Reference Range Comments CULTURE (BEAKER) (test aufr=7248) No growth in 5 days [id number] 06:54:00 Test Item Value Reference Range Comments PHOSPHORUS (BEAKER) (test ohyz=355) 3.3 mg/dL 2.3-4.7 [id number] 06:54:00 Test Item Value Reference Range Comments MAGNESIUM (BEAKER) (test amuk=040) 1.2 mg/dL 1.6-2.6 BASIC METABOLIC [id number] 06:54:00 Test Item Value Reference Range Comments SODIUM (BEAKER) (test 133 meq/L 136-145 tojt=149) POTASSIUM (BEAKER) (test 3.6 meq/L 3.5-5.1 ivfo=678) CHLORIDE (BEAKER) (test 108 meq/L 98-107 jbbc=652) CO2 (BEAKER) (test 17 meq/L 22-29 citb=392) BLOOD UREA NITROGEN 13 mg/dL 7-21 (BEAKER) (test tahe=349) CREATININE (BEAKER) (test 1.16 mg/dL 0.57-1.25 heob=629) GLUCOSE RANDOM (BEAKER) 82 mg/dL 70-105 (test gynt=182) CALCIUM (BEAKER) (test 8.0 mg/dL 8.4-10.2 omtz=879) EGFR (BEAKER) (test 66 mL/min/1.73 sq m ESTIMATED GFR IS NOT jgqy=0437) ACCURATE CREATININE CLEARANCE IN PREDICTING GLOMERULAR FILTRATION RATE. ESTIMATED GFR IS NOT APPLICABLE FOR DIALYSIS PATIENTS. Specimen moderately ictericHEPATIC FUNCTION [id number] 06:54:00 Test Item Value Reference Range Comments TOTAL PROTEIN (BEAKER) (test ejkg=927) 5.7 gm/dL 6.0-8.3 ALBUMIN (BEAKER) (test xdhp=8593) 3.1 g/dL 3.5-5.0 BILIRUBIN TOTAL (BEAKER) (test qxqr=710) 5.2 mg/dL 0.2-1.2 BILIRUBIN DIRECT (BEAKER) (test ervr=625) 2.6 mg/dL 0.1-0.5 ALKALINE PHOSPHATASE (BEAKER) (test zaaa=822) 55 U/L 40-150 AST (SGOT) (BEAKER) (test cizt=396) 32 U/L 5-34 ALT (SGPT) (BEAKER) (test bzkj=061) 9 U/L 6-55 Specimen moderately ictericCALCIUM, [id number] 06:30:00 Test Item Value Reference Range Comments CALCIUM IONIZED (BEAKER) (test epnp=856) 1.00 mmol/L 1.12-1.27 PH, BLOOD (BEAKER) (test blga=2959) 7.52 CBC W/PLT COUNT & AUTO [id number] 06:17:00 Test Item Value Reference Range Comments WHITE BLOOD CELL COUNT (BEAKER) (test txbc=519) 4.7 K/ L 4.0-10.0 RED BLOOD CELL COUNT (BEAKER) (test pcom=769) 2.05 M/ L 4.20-5.80 HEMOGLOBIN (BEAKER) (test duds=396) 7.1 GM/DL 13.0-16.8 HEMATOCRIT (BEAKER) (test cxta=691) 21.1 % 40.0-50.0 MEAN CORPUSCULAR VOLUME (BEAKER) (test fxpy=848) 103.0 fL 82.0-98.0 MEAN CORPUSCULAR HEMOGLOBIN (BEAKER) (test 34.8 pg 27.0-33.0 dqlb=097) MEAN CORPUSCULAR HEMOGLOBIN CONC (BEAKER) (test 33.8 GM/DL 32.0-36.0 dtzw=175) RED CELL DISTRIBUTION WIDTH (BEAKER) (test 13.9 % 10.3-14.2 mkip=676) PLATELET COUNT (BEAKER) (test qzgv=182) 71 K/CU MM 150-430 MEAN PLATELET VOLUME (BEAKER) (test khyq=479) 6.6 fL 6.5-10.5 NUCLEATED RED BLOOD CELLS (BEAKER) (test 0 /100 WBC 0-0 thzu=006) NEUTROPHILS RELATIVE PERCENT (BEAKER) (test 68 % bbfb=464) LYMPHOCYTES RELATIVE PERCENT (BEAKER) (test 16 % lpvl=559) MONOCYTES RELATIVE PERCENT (BEAKER) (test 12 % vrai=992) EOSINOPHILS RELATIVE PERCENT (BEAKER) (test 4 % bdqa=730) BASOPHILS RELATIVE PERCENT (BEAKER) (test 1 % aktl=406) NEUTROPHILS ABSOLUTE COUNT (BEAKER) (test 3.21 K/ L 1.80-8.00 xujp=008) LYMPHOCYTES ABSOLUTE COUNT (BEAKER) (test 0.75 K/ L 1.48-4.50 nori=439) MONOCYTES ABSOLUTE COUNT (BEAKER) (test tgch=303) 0.57 K/ L 0.00-1.30 EOSINOPHILS ABSOLUTE COUNT (BEAKER) (test 0.19 K/ L 0.00-0.50 gmys=427) BASOPHILS ABSOLUTE COUNT (BEAKER) (test xpza=865) 0.03 K/ L 0.00-0.20 0.00PROTHROMBIN [id number] 05:56:00 Test Item Value Reference Range Comments PROTIME (BEAKER) (test xspr=205) 26.4 seconds 11.7-14.7 INR (BEAKER) (test dduy=847) 2.4 <=5.9 RECOMMENDED COUMADIN/WARFARIN INR THERAPY RANGESSTANDARD DOSE: 2.0 - 3.0 Includes: PROPHYLAXIS forvenous thrombosis, systemic embolization; TREATMENT for venous thrombosis and/or pulmonary embolus.HIGH RISK: Target INR is 2.5-3.5 for patients with mechanical heart valves.BASIC METABOLIC [id number] 04:44: 00 Test Item Value Reference Range Comments SODIUM (BEAKER) (test 134 meq/L 136-145 dbxz=713) POTASSIUM (BEAKER) (test 3.6 meq/L 3.5-5.1 tfbw=658) CHLORIDE (BEAKER) (test 108 meq/L 98-107 mmqh=515) CO2 (BEAKER) (test 19 meq/L 22-29 bcsg=008) BLOOD UREA NITROGEN 12 mg/dL 7-21 (BEAKER) (test ejnt=877) CREATININE (BEAKER) (test 1.32 mg/dL 0.57-1.25 cwja=928) GLUCOSE RANDOM (BEAKER) 82 mg/dL 70-105 (test efkp=158) CALCIUM (BEAKER) (test 7.9 mg/dL 8.4-10.2 cxqh=651) EGFR (BEAKER) (test 57 mL/min/1.73 sq m ESTIMATED GFR IS NOT svze=1539) ACCURATE CREATININE CLEARANCE IN PREDICTING GLOMERULAR FILTRATION RATE. ESTIMATED GFR IS NOT APPLICABLE FOR DIALYSIS PATIENTS. Specimen moderately ictericHEPATIC FUNCTION [id number] 04:42:00 Test Item Value Reference Range Comments TOTAL PROTEIN (BEAKER) (test ayde=339) 5.8 gm/dL 6.0-8.3 ALBUMIN (BEAKER) (test wbwu=8886) 3.1 g/dL 3.5-5.0 BILIRUBIN TOTAL (BEAKER) (test ujlb=259) 5.1 mg/dL 0.2-1.2 BILIRUBIN DIRECT (BEAKER) (test sqzi=790) 2.7 mg/dL 0.1-0.5 ALKALINE PHOSPHATASE (BEAKER) (test ilre=636) 51 U/L 40-150 AST (SGOT) (BEAKER) (test zlyq=032) 27 U/L 5-34 ALT (SGPT) (BEAKER) (test lbub=688) 7 U/L 6-55 Specimen moderately ictericCBC W/PLT COUNT & AUTO [id number] 04: 35:00 Test Item Value Reference Range Comments WHITE BLOOD CELL COUNT (BEAKER) (test totq=266) 4.6 K/ L 4.0-10.0 RED BLOOD CELL COUNT (BEAKER) (test gysf=266) 2.06 M/ L 4.20-5.80 HEMOGLOBIN (BEAKER) (test sqpl=610) 7.2 GM/DL 13.0-16.8 HEMATOCRIT (BEAKER) (test lnbm=682) 21.5 % 40.0-50.0 MEAN CORPUSCULAR VOLUME (BEAKER) (test anvy=286) 104.0 fL 82.0-98.0 MEAN CORPUSCULAR HEMOGLOBIN (BEAKER) (test 35.0 pg 27.0-33.0 tkla=369) MEAN CORPUSCULAR HEMOGLOBIN CONC (BEAKER) (test 33.6 GM/DL 32.0-36.0 ewgw=466) RED CELL DISTRIBUTION WIDTH (BEAKER) (test 13.4 % 10.3-14.2 ongh=635) PLATELET COUNT (BEAKER) (test pchp=693) 76 K/CU MM 150-430 MEAN PLATELET VOLUME (BEAKER) (test dijk=664) 6.5 fL 6.5-10.5 NUCLEATED RED BLOOD CELLS (BEAKER) (test 0 /100 WBC 0-0 hwmq=215) NEUTROPHILS RELATIVE PERCENT (BEAKER) (test 64 % azfq=359) LYMPHOCYTES RELATIVE PERCENT (BEAKER) (test 16 % jjvl=728) MONOCYTES RELATIVE PERCENT (BEAKER) (test 16 % qjmv=396) EOSINOPHILS RELATIVE PERCENT (BEAKER) (test 4 % pinu=515) BASOPHILS RELATIVE PERCENT (BEAKER) (test 1 % ouvp=254) NEUTROPHILS ABSOLUTE COUNT (BEAKER) (test 2.89 K/ L 1.80-8.00 akeq=317) LYMPHOCYTES ABSOLUTE COUNT (BEAKER) (test 0.72 K/ L 1.48-4.50 bymq=588) MONOCYTES ABSOLUTE COUNT (BEAKER) (test cjcg=079) 0.71 K/ L 0.00-1.30 EOSINOPHILS ABSOLUTE COUNT (BEAKER) (test 0.20 K/ L 0.00-0.50 ikct=491) BASOPHILS ABSOLUTE COUNT (BEAKER) (test pdyx=334) 0.03 K/ L 0.00-0.20 0.00PROTHROMBIN [id number] 04:33:00 Test Item Value Reference Range Comments PROTIME (BEAKER) (test rwir=281) 30.2 seconds 11.7-14.7 INR (BEAKER) (test lves=696) 2.9 <=5.9 RECOMMENDED COUMADIN/WARFARIN INR THERAPY RANGESSTANDARD DOSE: 2.0 - 3.0 Includes: PROPHYLAXIS forvenous thrombosis, systemic embolization; TREATMENT for venous thrombosis and/or pulmonary embolus.HIGH RISK: Target INR is 2.5-3.5 for patients with mechanical heart valves.VANCOMYCIN LEVEL, [id number] 17: 04:00 Test Item Value Reference Range Comments VANCOMYCIN TROUGH (BEAKER) (test ujzs=849) 12.2 ug/mL 10.0-20.0 URINE [id number] 14:25:00 Test Item Value Reference Range Comments CULTURE (BEAKER) (test nxsw=5772) No growth TSH/FREE T4 IF [id number] 14:22:00 Test Item Value Reference Range Comments THYROID STIMULATING HORMONE (BEAKER) (test 3.53 uIU/mL 0.35-4.94 wwwc=178) URINE [id number] 11:43:00 Test Item Value Reference Range Comments CULTURE (BEAKER) (test gteb=4378) No growth CBC W/PLT COUNT & AUTO [id number] 07:55:00 Test Item Value Reference Range Comments WHITE BLOOD CELL COUNT (BEAKER) (test rqjh=610) 4.5 K/ L 4.0-10.0 RED BLOOD CELL COUNT (BEAKER) (test dwpx=838) 2.06 M/ L 4.20-5.80 HEMOGLOBIN (BEAKER) (test mjgi=621) 7.1 GM/DL 13.0-16.8 HEMATOCRIT (BEAKER) (test bapd=498) 21.5 % 40.0-50.0 MEAN CORPUSCULAR VOLUME (BEAKER) (test tuai=107) 104.0 fL 82.0-98.0 MEAN CORPUSCULAR HEMOGLOBIN (BEAKER) (test 34.5 pg 27.0-33.0 ubyk=770) MEAN CORPUSCULAR HEMOGLOBIN CONC (BEAKER) (test 33.1 GM/DL 32.0-36.0 wiks=820) RED CELL DISTRIBUTION WIDTH (BEAKER) (test 13.4 % 10.3-14.2 kgjb=093) PLATELET COUNT (BEAKER) (test mpkc=924) 79 K/CU MM 150-430 MEAN PLATELET VOLUME (BEAKER) (test pmkd=913) 6.8 fL 6.5-10.5 NUCLEATED RED BLOOD CELLS (BEAKER) (test 0 /100 WBC 0-0 tgmr=281) NEUTROPHILS RELATIVE PERCENT (BEAKER) (test 64 % tfio=726) LYMPHOCYTES RELATIVE PERCENT (BEAKER) (test 16 % zgng=544) MONOCYTES RELATIVE PERCENT (BEAKER) (test 15 % okfm=868) EOSINOPHILS RELATIVE PERCENT (BEAKER) (test 5 % btdp=348) BASOPHILS RELATIVE PERCENT (BEAKER) (test 0 % tylg=926) NEUTROPHILS ABSOLUTE COUNT (BEAKER) (test 2.88 K/ L 1.80-8.00 oito=507) LYMPHOCYTES ABSOLUTE COUNT (BEAKER) (test 0.73 K/ L 1.48-4.50 ljdv=734) MONOCYTES ABSOLUTE COUNT (BEAKER) (test iqkx=979) 0.68 K/ L 0.00-1.30 EOSINOPHILS ABSOLUTE COUNT (BEAKER) (test 0.23 K/ L 0.00-0.50 utty=621) BASOPHILS ABSOLUTE COUNT (BEAKER) (test pnys=062) 0.02 K/ L 0.00-0.20 0.00[facility] METABOLIC [id number] 05:58:00 Test Item Value Reference Range Comments SODIUM (BEAKER) (test 137 meq/L 136-145 idve=988) POTASSIUM (BEAKER) (test 3.7 meq/L 3.5-5.1 xcym=930) CHLORIDE (BEAKER) (test 110 meq/L 98-107 uuml=116) CO2 (BEAKER) (test 19 meq/L 22-29 iphn=790) BLOOD UREA NITROGEN 12 mg/dL 7-21 (BEAKER) (test kquj=417) CREATININE (BEAKER) (test 1.29 mg/dL 0.57-1.25 yoxh=007) GLUCOSE RANDOM (BEAKER) 80 mg/dL 70-105 (test lgtw=753) CALCIUM (BEAKER) (test 8.1 mg/dL 8.4-10.2 qwzw=260) EGFR (BEAKER) (test 59 mL/min/1.73 sq m ESTIMATED GFR IS NOT aqei=8175) ACCURATE CREATININE CLEARANCE IN PREDICTING GLOMERULAR FILTRATION RATE. ESTIMATED GFR IS NOT APPLICABLE FOR DIALYSIS PATIENTS. Specimen moderately ictericHEPATIC FUNCTION [id number] 05:58:00 Test Item Value Reference Range Comments TOTAL PROTEIN (BEAKER) (test mdsf=380) 5.9 gm/dL 6.0-8.3 ALBUMIN (BEAKER) (test ohma=9328) 3.4 g/dL 3.5-5.0 BILIRUBIN TOTAL (BEAKER) (test tjyn=812) 5.6 mg/dL 0.2-1.2 BILIRUBIN DIRECT (BEAKER) (test lwrl=242) 2.6 mg/dL 0.1-0.5 ALKALINE PHOSPHATASE (BEAKER) (test froi=831) 50 U/L 40-150 AST (SGOT) (BEAKER) (test yfly=018) 30 U/L 5-34 ALT (SGPT) (BEAKER) (test jnof=466) 9 U/L 6-55 Specimen moderately ictericPROTHROMBIN [id number] 05:31:00 Test Item Value Reference Range Comments PROTIME (BEAKER) (test pexf=375) 29.0 seconds 11.7-14.7 INR (BEAKER) (test zyhc=912) 2.7 <=5.9 RECOMMENDED COUMADIN/WARFARIN INR THERAPY RANGESSTANDARD DOSE: 2.0 - 3.0 Includes: PROPHYLAXIS forvenous thrombosis, systemic embolization; TREATMENT for venous thrombosis and/or pulmonary embolus.HIGH RISK: Target INR is 2.5-3.5 for patients with mechanical heart valves.ANAEROBIC [id number] 05:15:00 Test Item Value Reference Range Comments CULTURE (BEAKER) (test jwso=1861) No anaerobes isolated BLOOD [id number] 00:00:00 Test Item Value Reference Range Comments CULTURE (BEAKER) (test oezv=1566) No growth in 5 days BLOOD [id number] 00:00:00 Test Item Value Reference Range Comments CULTURE (BEAKER) (test qyzi=2493) No growth in 5 days URINALYSIS W/ REFLEX URINE [id number] 08:28:00 Test Item Value Reference Range Comments COLOR (BEAKER) (test mbkv=677) Yellow CLARITY (BEAKER) (test xnbr=898) Clear SPECIFIC GRAVITY UA (BEAKER) (test vuqw=873) 1.006 1.001-1.035 PH UA (BEAKER) (test dlwx=717) 6.5 5.0-8.0 PROTEIN UA (BEAKER) (test mwom=491) Negative Negative GLUCOSE UA (BEAKER) (test jgsb=897) Negative Negative KETONES UA (BEAKER) (test oexh=293) Negative Negative BILIRUBIN UA (BEAKER) (test xerj=748) Negative Negative BLOOD UA (BEAKER) (test ujdx=509) Negative Negative NITRITE UA (BEAKER) (test ettp=392) Negative Negative LEUKOCYTE ESTERASE UA (BEAKER) (test vbzy=686) Small Negative UROBILINOGEN UA (BEAKER) (test emwf=543) 0.2 mg/dL 0.2-1.0 RBC UA (BEAKER) (test aavm=893) 1 /HPF WBC UA (BEAKER) (test tjsw=382) 6 /HPF BACTERIA (BEAKER) (test hdlf=025) Rare SOURCE(BEAKER) (test iize=8806) CBC W/PLT COUNT & AUTO [id number] 07:21:00 Test Item Value Reference Range Comments WHITE BLOOD CELL COUNT (BEAKER) (test xuak=177) 5.9 K/ L 4.0-10.0 RED BLOOD CELL COUNT (BEAKER) (test hpmv=572) 2.12 M/ L 4.20-5.80 HEMOGLOBIN (BEAKER) (test wfud=379) 7.3 GM/DL 13.0-16.8 HEMATOCRIT (BEAKER) (test uauq=323) 22.2 % 40.0-50.0 MEAN CORPUSCULAR VOLUME (BEAKER) (test wgnw=360) 105.0 fL 82.0-98.0 MEAN CORPUSCULAR HEMOGLOBIN (BEAKER) (test 34.2 pg 27.0-33.0 wgus=445) MEAN CORPUSCULAR HEMOGLOBIN CONC (BEAKER) (test 32.7 GM/DL 32.0-36.0 zzqg=074) RED CELL DISTRIBUTION WIDTH (BEAKER) (test 13.1 % 10.3-14.2 ktse=179) PLATELET COUNT (BEAKER) (test wezh=933) 80 K/CU MM 150-430 MEAN PLATELET VOLUME (BEAKER) (test yvgu=822) 6.5 fL 6.5-10.5 NUCLEATED RED BLOOD CELLS (BEAKER) (test 0 /100 WBC 0-0 lvbx=628) NEUTROPHILS RELATIVE PERCENT (BEAKER) (test 67 % icmn=160) LYMPHOCYTES RELATIVE PERCENT (BEAKER) (test 14 % ahqh=504) MONOCYTES RELATIVE PERCENT (BEAKER) (test 14 % znbt=225) EOSINOPHILS RELATIVE PERCENT (BEAKER) (test 4 % xolh=594) BASOPHILS RELATIVE PERCENT (BEAKER) (test 0 % hphg=948) NEUTROPHILS ABSOLUTE COUNT (BEAKER) (test 3.97 K/ L 1.80-8.00 jomt=041) LYMPHOCYTES ABSOLUTE COUNT (BEAKER) (test 0.85 K/ L 1.48-4.50 uzof=517) MONOCYTES ABSOLUTE COUNT (BEAKER) (test gtyh=979) 0.81 K/ L 0.00-1.30 EOSINOPHILS ABSOLUTE COUNT (BEAKER) (test 0.25 K/ L 0.00-0.50 wsvp=493) BASOPHILS ABSOLUTE COUNT (BEAKER) (test nefv=464) 0.03 K/ L 0.00-0.20 [id number] 06:35:00 Test Item Value Reference Range Comments PHOSPHORUS (BEAKER) (test ckgn=334) 3.5 mg/dL 2.3-4.7 [id number] 06:35:00 Test Item Value Reference Range Comments MAGNESIUM (BEAKER) (test bqeo=261) 1.7 mg/dL 1.6-2.6 BASIC METABOLIC [id number] 06:35:00 Test Item Value Reference Range Comments SODIUM (BEAKER) (test 137 meq/L 136-145 efyx=367) POTASSIUM (BEAKER) (test 4.0 meq/L 3.5-5.1 lsvi=690) CHLORIDE (BEAKER) (test 109 meq/L 98-107 dsak=008) CO2 (BEAKER) (test 20 meq/L 22-29 kbol=363) BLOOD UREA NITROGEN 13 mg/dL 7-21 (BEAKER) (test lysw=106) CREATININE (BEAKER) (test 1.56 mg/dL 0.57-1.25 vpuz=931) GLUCOSE RANDOM (BEAKER) 85 mg/dL 70-105 (test tnug=016) CALCIUM (BEAKER) (test 8.4 mg/dL 8.4-10.2 xctd=321) EGFR (BEAKER) (test 47 mL/min/1.73 sq m ESTIMATED GFR IS NOT avim=7240) ACCURATE CREATININE CLEARANCE IN PREDICTING GLOMERULAR FILTRATION RATE. ESTIMATED GFR IS NOT APPLICABLE FOR DIALYSIS PATIENTS. Specimen moderately ictericHEPATIC FUNCTION [id number] 06:35:00 Test Item Value Reference Range Comments TOTAL PROTEIN (BEAKER) (test udpr=997) 6.5 gm/dL 6.0-8.3 ALBUMIN (BEAKER) (test hrrh=2245) 3.8 g/dL 3.5-5.0 BILIRUBIN TOTAL (BEAKER) (test xwir=221) 6.1 mg/dL 0.2-1.2 BILIRUBIN DIRECT (BEAKER) (test ckyj=277) 2.9 mg/dL 0.1-0.5 ALKALINE PHOSPHATASE (BEAKER) (test ledh=272) 54 U/L 40-150 AST (SGOT) (BEAKER) (test uurk=471) 28 U/L 5-34 ALT (SGPT) (BEAKER) (test dvxd=624) 7 U/L 6-55 Specimen moderately ictericPROTHROMBIN [id number] 06:06:00 Test Item Value Reference Range Comments PROTIME (BEAKER) (test exit=382) 26.1 seconds 11.7-14.7 INR (BEAKER) (test uupc=134) 2.4 <=5.9 RECOMMENDED COUMADIN/WARFARIN INR THERAPY RANGESSTANDARD DOSE: 2.0 - 3.0 Includes: PROPHYLAXIS forvenous thrombosis, systemic embolization; TREATMENT for venous thrombosis and/or pulmonary embolus.HIGH RISK: Target INR is 2.5-3.5 for patients with mechanical heart valves.CALCIUM, [id number] 06:06:00 Test Item Value Reference Range Comments CALCIUM IONIZED (BEAKER) (test pseb=584) 1.06 mmol/L 1.12-1.27 PH, BLOOD (BEAKER) (test dsbp=8396) 7.46 SURGICALLY OBTAINED CULTURE + GRAM [id number] 23:51:00 Test Item Value Reference Range Comments CULTURE (BEAKER) (test talg=5742) No growth GRAM STAIN RESULT (BEAKER) (test 1+ WBCs pxkm=7334) GRAM STAIN RESULT (BEAKER) (test No organisms seen ttnk=01156) BODY FLUID CULTURE + GRAM [id number] 23:42:00 Test Item Value Reference Range Comments CULTURE (BEAKER) (test xchp=8562) No growth GRAM STAIN RESULT (BEAKER) (test 1+ WBCs oulw=9019) GRAM STAIN RESULT (BEAKER) (test No organisms seen lxsc=67588) BODY FLUID CELL COUNT WITH [id number] 19:59:00 Test Item Value Reference Range Comments APPEARANCE FLUID (BEAKER) (test plzm=590) Hazy Clear COLOR FLUID (BEAKER) (test lsym=647) Yellow Colorless, Straw RBC FLUID (BEAKER) (test vojh=946) 2435 /cu mm <=1 ADJUSTED WBC FLUID (BEAKER) (test ndxx=3099) 441 /cu mm <=5 LINING CELLS (BEAKER) (test hpfw=7143) 9 /cu mm <=1 NEUTROPHILS FLUID (BEAKER) (test eqri=4168) 16 % LYMPHS FLUID (BEAKER) (test ijtl=636) 10 % MONO/MACROPHAGE FLUID (BEAKER) (test mxvt=415) 74 % EOSINOPHILS FLUID (BEAKER) (test fqkh=668) 0 % BASO FLUID (BEAKER) (test jnjw=689) 0 % CONTAINER BODY FLUID (BEAKER) (test fxmx=9625) EDTA Tube [id number] 11:01:00 Test Item Value Reference Range Comments PROCALCITONIN (BEAKER) (test qwkv=0974) 0.25 ng/mL <0.05 SEPSIS RISK (ng/mL)Low: 0.05-0.50Intermediate: 0.51-2.00High: & gt;=2.01CBC W/PLT COUNT & AUTO [id number] 08:40:00 Test Item Value Reference Range Comments WHITE BLOOD CELL COUNT (BEAKER) (test zada=685) 6.3 K/ L 4.0-10.0 RED BLOOD CELL COUNT (BEAKER) (test cdoq=049) 2.07 M/ L 4.20-5.80 HEMOGLOBIN (BEAKER) (test grzs=001) 7.1 GM/DL 13.0-16.8 HEMATOCRIT (BEAKER) (test kbmg=370) 21.9 % 40.0-50.0 MEAN CORPUSCULAR VOLUME (BEAKER) (test nwki=810) 106.0 fL 82.0-98.0 MEAN CORPUSCULAR HEMOGLOBIN (BEAKER) (test 34.1 pg 27.0-33.0 xzsn=450) MEAN CORPUSCULAR HEMOGLOBIN CONC (BEAKER) (test 32.2 GM/DL 32.0-36.0 wjfb=919) RED CELL DISTRIBUTION WIDTH (BEAKER) (test 13.1 % 10.3-14.2 ijov=261) PLATELET COUNT (BEAKER) (test edio=001) 78 K/CU MM 150-430 MEAN PLATELET VOLUME (BEAKER) (test elcw=683) 6.6 fL 6.5-10.5 NUCLEATED RED BLOOD CELLS (BEAKER) (test 0 /100 WBC 0-0 cqoj=236) NEUTROPHILS RELATIVE PERCENT (BEAKER) (test 73 % tqfm=239) LYMPHOCYTES RELATIVE PERCENT (BEAKER) (test 10 % ewpl=400) MONOCYTES RELATIVE PERCENT (BEAKER) (test 13 % ebwo=027) EOSINOPHILS RELATIVE PERCENT (BEAKER) (test 4 % gwii=039) BASOPHILS RELATIVE PERCENT (BEAKER) (test 0 % ngja=326) NEUTROPHILS ABSOLUTE COUNT (BEAKER) (test 4.60 K/ L 1.80-8.00 zgru=491) LYMPHOCYTES ABSOLUTE COUNT (BEAKER) (test 0.64 K/ L 1.48-4.50 psma=930) MONOCYTES ABSOLUTE COUNT (BEAKER) (test uwzy=980) 0.81 K/ L 0.00-1.30 EOSINOPHILS ABSOLUTE COUNT (BEAKER) (test 0.23 K/ L 0.00-0.50 mfit=958) BASOPHILS ABSOLUTE COUNT (BEAKER) (test fudk=541) 0.01 K/ L 0.00-0.20 [id number] 06:50:00 Test Item Value Reference Range Comments PHOSPHORUS (BEAKER) (test pnse=392) 3.0 mg/dL 2.3-4.7 [id number] 06:50:00 Test Item Value Reference Range Comments MAGNESIUM (BEAKER) (test ifhl=744) 1.9 mg/dL 1.6-2.6 BASIC METABOLIC [id number] 06:50:00 Test Item Value Reference Range Comments SODIUM (BEAKER) (test 135 meq/L 136-145 bwhh=476) POTASSIUM (BEAKER) (test 4.2 meq/L 3.5-5.1 tptu=024) CHLORIDE (BEAKER) (test 106 meq/L 98-107 ertf=719) CO2 (BEAKER) (test 21 meq/L 22-29 mgxx=000) BLOOD UREA NITROGEN 19 mg/dL 7-21 (BEAKER) (test lvyp=524) CREATININE (BEAKER) (test 1.62 mg/dL 0.57-1.25 izen=214) GLUCOSE RANDOM (BEAKER) 98 mg/dL 70-105 (test syvd=221) CALCIUM (BEAKER) (test 8.6 mg/dL 8.4-10.2 nviu=680) EGFR (BEAKER) (test 45 mL/min/1.73 sq m ESTIMATED GFR IS NOT teqr=3083) ACCURATE CREATININE CLEARANCE IN PREDICTING GLOMERULAR FILTRATION RATE. ESTIMATED GFR IS NOT APPLICABLE FOR DIALYSIS PATIENTS. Specimen moderately ictericHEPATIC FUNCTION [id number] 06:50:00 Test Item Value Reference Range Comments TOTAL PROTEIN (BEAKER) (test adhm=997) 6.3 gm/dL 6.0-8.3 ALBUMIN (BEAKER) (test zqlv=4189) 3.7 g/dL 3.5-5.0 BILIRUBIN TOTAL (BEAKER) (test kcvr=767) 6.2 mg/dL 0.2-1.2 BILIRUBIN DIRECT (BEAKER) (test dnyw=627) 2.8 mg/dL 0.1-0.5 ALKALINE PHOSPHATASE (BEAKER) (test dzyd=559) 54 U/L 40-150 AST (SGOT) (BEAKER) (test otmn=556) 29 U/L 5-34 ALT (SGPT) (BEAKER) (test hwlt=878) 8 U/L 6-55 Specimen moderately ictericCALCIUM, [id number] 06:48:00 Test Item Value Reference Range Comments CALCIUM IONIZED (BEAKER) (test ymte=606) 1.12 mmol/L 1.12-1.27 PH, BLOOD (BEAKER) (test hbmw=0063) 7.33 PROTHROMBIN [id number] 06:24:00 Test Item Value Reference Range Comments PROTIME (BEAKER) (test ikmo=358) 25.4 seconds 11.7-14.7 INR (BEAKER) (test ufif=801) 2.3 <=5.9 RECOMMENDED COUMADIN/WARFARIN INR THERAPY RANGESSTANDARD DOSE: 2.0 - 3.0 Includes: PROPHYLAXIS forvenous thrombosis, systemic embolization; TREATMENT for venous thrombosis and/or pulmonary embolus.HIGH RISK: Target INR is 2.5-3.5 for patients with mechanical heart valves.[id number] 11:17:00 Test Item Value Reference Range Comments FIBRINOGEN LEVEL (BEAKER) (test xiqz=677) 115 mg/dl 225-434 CALCIUM, [id number] 06:04:00 Test Item Value Reference Range Comments CALCIUM IONIZED (BEAKER) (test rffu=320) 1.08 mmol/L 1.12-1.27 PH, BLOOD (BEAKER) (test yjhp=4764) 7.41 CBC W/PLT COUNT & AUTO [id number] 05:28:00 Test Item Value Reference Range Comments WHITE BLOOD CELL COUNT (BEAKER) (test sdmz=471) 5.6 K/ L 4.0-10.0 RED BLOOD CELL COUNT (BEAKER) (test qwgl=488) 2.00 M/ L 4.20-5.80 HEMOGLOBIN (BEAKER) (test mwpg=121) 7.2 GM/DL 13.0-16.8 HEMATOCRIT (BEAKER) (test wwho=122) 21.2 % 40.0-50.0 MEAN CORPUSCULAR VOLUME (BEAKER) (test zutd=162) 106.0 fL 82.0-98.0 MEAN CORPUSCULAR HEMOGLOBIN (BEAKER) (test 36.0 pg 27.0-33.0 cpua=381) MEAN CORPUSCULAR HEMOGLOBIN CONC (BEAKER) (test 34.0 GM/DL 32.0-36.0 uqaq=675) RED CELL DISTRIBUTION WIDTH (BEAKER) (test 13.9 % 10.3-14.2 ertf=504) PLATELET COUNT (BEAKER) (test utnq=077) 74 K/CU MM 150-430 MEAN PLATELET VOLUME (BEAKER) (test undx=852) 6.6 fL 6.5-10.5 NUCLEATED RED BLOOD CELLS (BEAKER) (test 0 /100 WBC 0-0 oecd=580) NEUTROPHILS RELATIVE PERCENT (BEAKER) (test 66 % kglr=773) LYMPHOCYTES RELATIVE PERCENT (BEAKER) (test 14 % xajl=479) MONOCYTES RELATIVE PERCENT (BEAKER) (test 13 % entq=310) EOSINOPHILS RELATIVE PERCENT (BEAKER) (test 7 % tsnb=998) BASOPHILS RELATIVE PERCENT (BEAKER) (test 0 % hosj=586) NEUTROPHILS ABSOLUTE COUNT (BEAKER) (test 3.67 K/ L 1.80-8.00 qpbp=520) LYMPHOCYTES ABSOLUTE COUNT (BEAKER) (test 0.80 K/ L 1.48-4.50 anun=107) MONOCYTES ABSOLUTE COUNT (BEAKER) (test uuqu=544) 0.69 K/ L 0.00-1.30 EOSINOPHILS ABSOLUTE COUNT (BEAKER) (test 0.38 K/ L 0.00-0.50 esjz=282) BASOPHILS ABSOLUTE COUNT (BEAKER) (test rsea=659) 0.02 K/ L 0.00-0.20 0.00PROTHROMBIN [id number] 05:11:00 Test Item Value Reference Range Comments PROTIME (BEAKER) (test agyd=246) 25.9 seconds 11.7-14.7 INR (BEAKER) (test emux=642) 2.4 <=5.9 RECOMMENDED COUMADIN/WARFARIN INR THERAPY RANGESSTANDARD DOSE: 2.0 - 3.0 Includes: PROPHYLAXIS forvenous thrombosis, systemic embolization; TREATMENT for venous thrombosis and/or pulmonary embolus.HIGH RISK: Target INR is 2.5-3.5 for patients with mechanical heart valves.[id number] 05:03:00 Test Item Value Reference Range Comments PHOSPHORUS (BEAKER) (test cynp=218) 3.5 mg/dL 2.3-4.7 [id number] 05:03:00 Test Item Value Reference Range Comments MAGNESIUM (BEAKER) (test beaj=459) 1.7 mg/dL 1.6-2.6 BASIC METABOLIC [id number] 05:03:00 Test Item Value Reference Range Comments SODIUM (BEAKER) (test 135 meq/L 136-145 ubdy=894) POTASSIUM (BEAKER) (test 4.0 meq/L 3.5-5.1 eauh=151) CHLORIDE (BEAKER) (test 107 meq/L 98-107 qzdg=807) CO2 (BEAKER) (test 20 meq/L 22-29 awxr=665) BLOOD UREA NITROGEN 22 mg/dL 7-21 (BEAKER) (test kybv=621) CREATININE (BEAKER) (test 1.77 mg/dL 0.57-1.25 zlec=096) GLUCOSE RANDOM (BEAKER) 83 mg/dL 70-105 (test joaq=913) CALCIUM (BEAKER) (test 8.3 mg/dL 8.4-10.2 hztt=060) EGFR (BEAKER) (test 41 mL/min/1.73 sq m ESTIMATED GFR IS NOT buqs=4445) ACCURATE CREATININE CLEARANCE IN PREDICTING GLOMERULAR FILTRATION RATE. ESTIMATED GFR IS NOT APPLICABLE FOR DIALYSIS PATIENTS. Specimen moderately ictericHEPATIC FUNCTION [id number] 05:03:00 Test Item Value Reference Range Comments TOTAL PROTEIN (BEAKER) (test tjyl=687) 6.2 gm/dL 6.0-8.3 ALBUMIN (BEAKER) (test ntkv=3897) 3.7 g/dL 3.5-5.0 BILIRUBIN TOTAL (BEAKER) (test jbxy=790) 6.0 mg/dL 0.2-1.2 BILIRUBIN DIRECT (BEAKER) (test jwix=953) 2.6 mg/dL 0.1-0.5 ALKALINE PHOSPHATASE (BEAKER) (test rccu=017) 48 U/L 40-150 AST (SGOT) (BEAKER) (test ukct=059) 26 U/L 5-34 ALT (SGPT) (BEAKER) (test acuj=654) 8 U/L 6-55 Specimen moderately ictericURINE [id number] 14:42:00 Test Item Value Reference Range Comments CULTURE (BEAKER) (test gcvp=3991) No growth ANTI-NUCLEAR ANTIBODY (CHERYL)[id number] 13:32:00 Test Item Value Reference Range Comments ANTI-NUCLEAR ANTIBODY (CHERYL) (BEAKER) (test Negative Negative lveq=693) PLATELET [id number] 06:30:00 Test Item Value Reference Range Comments PLATELET COUNT (BEAKER) (test wqth=795) 104 K/CU MM 150-430 [id number] 06:22:00 Test Item Value Reference Range Comments FIBRINOGEN LEVEL (BEAKER) (test zdxh=603) 106 mg/dl 225-434 [id number] 06:16:00 Test Item Value Reference Range Comments PARTIAL THROMBOPLASTIN TIME (BEAKER) (test 48.1 seconds 22.5-36.0 mwhb=963) PROTHROMBIN [id number] 06:15:00 Test Item Value Reference Range Comments PROTIME (BEAKER) (test wzge=387) 23.5 seconds 11.7-14.7 INR (BEAKER) (test bgzs=827) 2.1 <=5.9 RECOMMENDED COUMADIN/WARFARIN INR THERAPY RANGESSTANDARD DOSE: 2.0 - 3.0 Includes: PROPHYLAXIS forvenous thrombosis, systemic embolization; TREATMENT for venous thrombosis and/or pulmonary embolus.HIGH RISK: Target INR is 2.5-3.5 for patients with mechanical heart valves.[id number] 06:12:00 Test Item Value Reference Range Comments MAGNESIUM (BEAKER) (test 2.0 mg/dL 1.6-2.6 Specimen slightly hemolyzed rzer=020) [id number] 06:12:00 Test Item Value Reference Range Comments PHOSPHORUS (BEAKER) (test 5.0 mg/dL 2.3-4.7 Specimen slightly hemolyzed ajni=625) BASIC METABOLIC [id number] 06:12:00 Test Item Value Reference Range Comments SODIUM (BEAKER) (test 135 meq/L 136-145 nahr=520) POTASSIUM (BEAKER) (test 4.7 meq/L 3.5-5.1 Specimen slightly wkpg=951) hemolyzed CHLORIDE (BEAKER) (test 107 meq/L 98-107 iumf=665) CO2 (BEAKER) (test 20 meq/L 22-29 qghz=942) BLOOD UREA NITROGEN 18 mg/dL 7-21 (BEAKER) (test ztff=227) CREATININE (BEAKER) (test 1.74 mg/dL 0.57-1.25 Specimen slightly dbcg=201) hemolyzed GLUCOSE RANDOM (BEAKER) 76 mg/dL 70-105 (test rgcv=285) CALCIUM (BEAKER) (test 8.1 mg/dL 8.4-10.2 vznn=567) EGFR (BEAKER) (test 42 mL/min/1.73 sq m ESTIMATED GFR IS NOT gmzv=5597) ACCURATE CREATININE CLEARANCE IN PREDICTING GLOMERULAR FILTRATION RATE. ESTIMATED GFR IS NOT APPLICABLE FOR DIALYSIS PATIENTS. Specimen moderately ictericHEPATIC FUNCTION [id number] 06:12:00 Test Item Value Reference Range Comments TOTAL PROTEIN (BEAKER) (test 6.6 gm/dL 6.0-8.3 Specimen slightly hemolyzed nsyr=814) ALBUMIN (BEAKER) (test 3.7 g/dL 3.5-5.0 Specimen slightly hemolyzed ddxw=7041) BILIRUBIN TOTAL (BEAKER) (test 5.7 mg/dL 0.2-1.2 Specimen slightly hemolyzed wrmv=916) BILIRUBIN DIRECT (BEAKER) (test 2.7 mg/dL 0.1-0.5 Specimen slightly hemolyzed lzmt=667) ALKALINE PHOSPHATASE (BEAKER) 56 U/L 40-150 (test xjzz=713) AST (SGOT) (BEAKER) (test 29 U/L 5-34 Specimen slightly hemolyzed eqgx=034) ALT (SGPT) (BEAKER) (test 7 U/L 6-55 Specimen slightly hemolyzed bleu=659) Specimen moderately ictericLACTIC ACID, VENOUS, WHOLE [id number] 06:04:00 Test Item Value Reference Range Comments LACTATE BLOOD VENOUS (2) (BEAKER) (test 1.0 mmol/L 0.5-2.2 zdqb=5043) Effective 02/28/2016: Units/Reference Range ChangeNew: 0.5-2.2 mmol/L Previous: 5 -20 mg/dLSpecimen moderately ictericCALCIUM, [id number] 05:56:00 Test Item Value Reference Range Comments CALCIUM IONIZED (BEAKER) (test qlzm=537) 1.00 mmol/L 1.12-1.27 PH, BLOOD (BEAKER) (test wedz=9032) 7.34 [id number] 21:34:00 Test Item Value Reference Range Comments FIBRINOGEN LEVEL (BEAKER) (test xceh=218) 105 mg/dl 225-434 PLATELET [id number] 20:52:00 Test Item Value Reference Range Comments PLATELET COUNT (BEAKER) (test oaro=518) 77 K/CU MM 150-430 PT/[id number] 20:51:00 Test Item Value Reference Range Comments PROTIME (BEAKER) (test innx=969) 21.1 seconds 11.7-14.7 INR (BEAKER) (test skbd=193) 1.8 <=5.9 PARTIAL THROMBOPLASTIN TIME (BEAKER) (test 47.3 seconds 22.5-36.0 eole=396) RECOMMENDED COUMADIN/WARFARIN INR THERAPY RANGESSTANDARD DOSE: 2.0 - 3.0 Includes: PROPHYLAXIS forvenous thrombosis, systemic embolization; TREATMENT for venous thrombosis and/or pulmonary embolus.HIGH RISK: Target INR is 2.5-3.5 for patients with mechanical heart valves.[id number] 20:51:00 Test Item Value Reference Range Comments PARTIAL THROMBOPLASTIN TIME (BEAKER) (test 47.3 seconds 22.5-36.0 lytj=847) PROTHROMBIN TIME/[id number] 20:50:00 Test Item Value Reference Range Comments PROTIME (BEAKER) (test tiul=470) 21.1 seconds 11.7-14.7 INR (BEAKER) (test fjdf=120) 1.8 <=5.9 RECOMMENDED COUMADIN/WARFARIN INR THERAPY RANGESSTANDARD DOSE: 2.0 - 3.0 Includes: PROPHYLAXIS forvenous thrombosis, systemic embolization; TREATMENT for venous thrombosis and/or pulmonary embolus.HIGH RISK: Target INR is 2.5-3.5 for patients with mechanical heart valves.[id number] 19:30:00 Test Item Value Reference Range Comments PARTIAL THROMBOPLASTIN TIME (BEAKER) (test 45.1 seconds 22.5-36.0 mvon=486) PROTHROMBIN TIME/[id number] 19:29:00 Test Item Value Reference Range Comments PROTIME (BEAKER) (test ehfj=958) 28.2 seconds 11.7-14.7 INR (BEAKER) (test svii=437) 2.6 <=5.9 RECOMMENDED COUMADIN/WARFARIN INR THERAPY RANGESSTANDARD DOSE: 2.0 - 3.0 Includes: PROPHYLAXIS forvenous thrombosis, systemic embolization; TREATMENT for venous thrombosis and/or pulmonary embolus.HIGH RISK: Target INR is 2.5-3.5 for patients with mechanical heart valves.BODY FLUID CELL COUNT WITH [id number] 18:53:00 Test Item Value Reference Range Comments APPEARANCE FLUID (BEAKER) (test yfbq=926) Hazy Clear COLOR FLUID (BEAKER) (test nhuv=068) Yellow Colorless, Straw RBC FLUID (BEAKER) (test dcts=608) 900 /cu mm <=1 ADJUSTED WBC FLUID (BEAKER) (test uywc=5581) 306 /cu mm <=5 LINING CELLS (BEAKER) (test ogcq=5757) 64 /cu mm <=1 NEUTROPHILS FLUID (BEAKER) (test ilyj=6033) 4 % LYMPHS FLUID (BEAKER) (test lrox=182) 18 % MONO/MACROPHAGE FLUID (BEAKER) (test roev=377) 78 % EOSINOPHILS FLUID (BEAKER) (test xhzy=785) 0 % BASO FLUID (BEAKER) (test mbta=539) 0 % CONTAINER BODY FLUID (BEAKER) (test tiwq=7424) EDTA Tube [id number] 16:56:00 Test Item Value Reference Range Comments AMYLASE (BEAKER) (test xeaj=671) 37 U/L 25-125 Specimen moderately ictericCOMPREHENSIVE METABOLIC [id number] 16:56:00 Test Item Value Reference Range Comments TOTAL PROTEIN (BEAKER) 6.1 gm/dL 6.0-8.3 (test fxiw=319) ALBUMIN (BEAKER) (test 3.2 g/dL 3.5-5.0 ibwt=6565) ALKALINE PHOSPHATASE 67 U/L 40-150 (BEAKER) (test kjna=906) BILIRUBIN TOTAL (BEAKER) 5.7 mg/dL 0.2-1.2 (test nlbc=879) SODIUM (BEAKER) (test 134 meq/L 136-145 kfzv=366) POTASSIUM (BEAKER) (test 3.8 meq/L 3.5-5.1 fxdh=255) CHLORIDE (BEAKER) (test 106 meq/L 98-107 qnef=974) CO2 (BEAKER) (test 19 meq/L 22-29 snsf=207) BLOOD UREA NITROGEN 18 mg/dL 7-21 (BEAKER) (test piec=660) CREATININE (BEAKER) (test 1.52 mg/dL 0.57-1.25 ejaa=511) GLUCOSE RANDOM (BEAKER) 112 mg/dL 70-105 (test ixkl=930) CALCIUM (BEAKER) (test 8.3 mg/dL 8.4-10.2 jymj=980) AST (SGOT) (BEAKER) (test 28 U/L 5-34 ydch=208) ALT (SGPT) (BEAKER) (test 10 U/L 6-55 rgfz=169) EGFR (BEAKER) (test 49 mL/min/1.73 sq m ESTIMATED GFR IS NOT zvhm=8244) ACCURATE CREATININE CLEARANCE IN PREDICTING GLOMERULAR FILTRATION RATE. ESTIMATED GFR IS NOT APPLICABLE FOR DIALYSIS PATIENTS. Specimen moderately [id number] 16:56:00 Test Item Value Reference Range Comments LIPASE (BEAKER) (test eeyv=813) 52 U/L 8-78 Specimen moderately ictericCBC W/PLT COUNT & AUTO [id number] 16: 27:00 Test Item Value Reference Range Comments WHITE BLOOD CELL COUNT (BEAKER) (test uwms=162) 3.7 K/ L 4.0-10.0 RED BLOOD CELL COUNT (BEAKER) (test itsr=371) 2.16 M/ L 4.20-5.80 HEMOGLOBIN (BEAKER) (test wjeu=331) 7.8 GM/DL 13.0-16.8 HEMATOCRIT (BEAKER) (test uvql=509) 23.1 % 40.0-50.0 MEAN CORPUSCULAR VOLUME (BEAKER) (test gpbk=142) 107.0 fL 82.0-98.0 MEAN CORPUSCULAR HEMOGLOBIN (BEAKER) (test 36.0 pg 27.0-33.0 ijmh=647) MEAN CORPUSCULAR HEMOGLOBIN CONC (BEAKER) (test 33.6 GM/DL 32.0-36.0 srov=506) RED CELL DISTRIBUTION WIDTH (BEAKER) (test 13.9 % 10.3-14.2 ijwa=206) PLATELET COUNT (BEAKER) (test bybv=305) 78 K/CU MM 150-430 MEAN PLATELET VOLUME (BEAKER) (test xtvp=123) 6.2 fL 6.5-10.5 NUCLEATED RED BLOOD CELLS (BEAKER) (test 0 /100 WBC 0-0 diii=405) NEUTROPHILS RELATIVE PERCENT (BEAKER) (test 50 % nlkm=106) LYMPHOCYTES RELATIVE PERCENT (BEAKER) (test 25 % ijba=745) MONOCYTES RELATIVE PERCENT (BEAKER) (test 19 % vdij=439) EOSINOPHILS RELATIVE PERCENT (BEAKER) (test 6 % wvsr=507) BASOPHILS RELATIVE PERCENT (BEAKER) (test 1 % qppq=292) NEUTROPHILS ABSOLUTE COUNT (BEAKER) (test 1.82 K/ L 1.80-8.00 ascc=233) LYMPHOCYTES ABSOLUTE COUNT (BEAKER) (test 0.91 K/ L 1.48-4.50 ekjm=289) MONOCYTES ABSOLUTE COUNT (BEAKER) (test gufp=575) 0.69 K/ L 0.00-1.30 EOSINOPHILS ABSOLUTE COUNT (BEAKER) (test 0.21 K/ L 0.00-0.50 tjvn=627) BASOPHILS ABSOLUTE COUNT (BEAKER) (test mznb=327) 0.02 K/ L 0.00-0.20 0.00HEPATIC FUNCTION [id number] 08:34:00 Test Item Value Reference Range Comments TOTAL PROTEIN (BEAKER) (test fonr=254) 5.9 gm/dL 6.0-8.3 ALBUMIN (BEAKER) (test rynt=2038) 3.2 g/dL 3.5-5.0 BILIRUBIN TOTAL (BEAKER) (test soyt=937) 5.4 mg/dL 0.2-1.2 BILIRUBIN DIRECT (BEAKER) (test xtzc=630) 2.5 mg/dL 0.1-0.5 ALKALINE PHOSPHATASE (BEAKER) (test rqdy=993) 60 U/L 40-150 AST (SGOT) (BEAKER) (test rzwn=238) 28 U/L 5-34 ALT (SGPT) (BEAKER) (test oyiu=097) 10 U/L 6-55 Specimen moderately [id number] 08:16:00 Test Item Value Reference Range Comments PHOSPHORUS (BEAKER) (test lufc=685) 3.0 mg/dL 2.3-4.7 [id number] 08:16:00 Test Item Value Reference Range Comments MAGNESIUM (BEAKER) (test resd=442) 1.6 mg/dL 1.6-2.6 BASIC METABOLIC [id number] 08:16:00 Test Item Value Reference Range Comments SODIUM (BEAKER) (test 133 meq/L 136-145 rani=350) POTASSIUM (BEAKER) (test 3.6 meq/L 3.5-5.1 faxa=793) CHLORIDE (BEAKER) (test 105 meq/L 98-107 hbsq=307) CO2 (BEAKER) (test 20 meq/L 22-29 jank=371) BLOOD UREA NITROGEN 18 mg/dL 7-21 (BEAKER) (test gvcu=986) CREATININE (BEAKER) (test 1.54 mg/dL 0.57-1.25 hfwr=772) GLUCOSE RANDOM (BEAKER) 70 mg/dL 70-105 (test xrir=131) CALCIUM (BEAKER) (test 8.2 mg/dL 8.4-10.2 tlmq=471) EGFR (BEAKER) (test 48 mL/min/1.73 sq m ESTIMATED GFR IS NOT loze=1891) ACCURATE CREATININE CLEARANCE IN PREDICTING GLOMERULAR FILTRATION RATE. ESTIMATED GFR IS NOT APPLICABLE FOR DIALYSIS PATIENTS. Specimen moderately ictericCBC W/PLT COUNT & AUTO [id number] 08: 06:00 Test Item Value Reference Range Comments WHITE BLOOD CELL COUNT (BEAKER) (test xzit=373) 3.4 K/ L 4.0-10.0 RED BLOOD CELL COUNT (BEAKER) (test gzij=573) 2.03 M/ L 4.20-5.80 HEMOGLOBIN (BEAKER) (test vzeu=631) 7.3 GM/DL 13.0-16.8 HEMATOCRIT (BEAKER) (test sugz=761) 21.6 % 40.0-50.0 MEAN CORPUSCULAR VOLUME (BEAKER) (test vanl=447) 106.0 fL 82.0-98.0 MEAN CORPUSCULAR HEMOGLOBIN (BEAKER) (test 35.8 pg 27.0-33.0 obze=744) MEAN CORPUSCULAR HEMOGLOBIN CONC (BEAKER) (test 33.7 GM/DL 32.0-36.0 sqob=249) RED CELL DISTRIBUTION WIDTH (BEAKER) (test 13.5 % 10.3-14.2 bcwq=911) PLATELET COUNT (BEAKER) (test wrxi=990) 82 K/CU MM 150-430 MEAN PLATELET VOLUME (BEAKER) (test sbgh=136) 6.7 fL 6.5-10.5 NUCLEATED RED BLOOD CELLS (BEAKER) (test 0 /100 WBC 0-0 sgda=661) NEUTROPHILS RELATIVE PERCENT (BEAKER) (test 50 % gxsh=578) LYMPHOCYTES RELATIVE PERCENT (BEAKER) (test 25 % wwpe=932) MONOCYTES RELATIVE PERCENT (BEAKER) (test 19 % aaix=236) EOSINOPHILS RELATIVE PERCENT (BEAKER) (test 5 % jgwc=660) BASOPHILS RELATIVE PERCENT (BEAKER) (test 1 % pdli=782) NEUTROPHILS ABSOLUTE COUNT (BEAKER) (test 1.69 K/ L 1.80-8.00 qwfv=377) LYMPHOCYTES ABSOLUTE COUNT (BEAKER) (test 0.83 K/ L 1.48-4.50 rxlt=597) MONOCYTES ABSOLUTE COUNT (BEAKER) (test wjgu=535) 0.65 K/ L 0.00-1.30 EOSINOPHILS ABSOLUTE COUNT (BEAKER) (test 0.17 K/ L 0.00-0.50 opza=129) BASOPHILS ABSOLUTE COUNT (BEAKER) (test bepi=977) 0.04 K/ L 0.00-0.20 0.00PROTHROMBIN [id number] 08:01:00 Test Item Value Reference Range Comments PROTIME (BEAKER) (test atwa=673) 27.6 seconds 11.7-14.7 INR (BEAKER) (test noph=868) 2.6 <=5.9 RECOMMENDED COUMADIN/WARFARIN INR THERAPY RANGESSTANDARD DOSE: 2.0 - 3.0 Includes: PROPHYLAXIS forvenous thrombosis, systemic embolization; TREATMENT for venous thrombosis and/or pulmonary embolus.HIGH RISK: Target INR is 2.5-3.5 for patients with mechanical heart valves.CALCIUM, [id number] 07:58:00 Test Item Value Reference Range Comments CALCIUM IONIZED (BEAKER) (test ueke=196) 1.00 mmol/L 1.12-1.27 PH, BLOOD (BEAKER) (test zgtx=9568) 7.53 URINALYSIS W/ [id number] 18:42:00 Test Item Value Reference Range Comments COLOR (BEAKER) (test eouq=798) Yellow CLARITY (BEAKER) (test fobk=193) Clear SPECIFIC GRAVITY UA (BEAKER) (test 1.009 1.001-1.035 xhyw=435) PH UA (BEAKER) (test emau=055) 7.5 5.0-8.0 PROTEIN UA (BEAKER) (test jhgw=864) Negative Negative GLUCOSE UA (BEAKER) (test ztth=099) Negative Negative KETONES UA (BEAKER) (test zcto=310) Negative Negative BILIRUBIN UA (BEAKER) (test qxch=291) Negative Negative BLOOD UA (BEAKER) (test vqfn=329) Negative Negative NITRITE UA (BEAKER) (test ssnc=879) Negative Negative LEUKOCYTE ESTERASE UA (BEAKER) (test Negative Negative pbzq=179) UROBILINOGEN UA (BEAKER) (test lihr=362) 3.0 mg/dL 0.2-1.0 RBC UA (BEAKER) (test uswk=366) 6 /HPF WBC UA (BEAKER) (test ywcv=175) 1 /HPF SOURCE(BEAKER) (test peab=0256) Urine, Clean Catch PROTHROMBIN [id number] 15:13:00 Test Item Value Reference Range Comments PROTIME (BEAKER) (test yrgd=880) 31.4 seconds 11.7-14.7 INR (BEAKER) (test xipl=545) 3.0 <=5.9 RECOMMENDED COUMADIN/WARFARIN INR THERAPY RANGESSTANDARD DOSE: 2.0 - 3.0 Includes: PROPHYLAXIS forvenous thrombosis, systemic embolization; TREATMENT for venous thrombosis and/or pulmonary embolus.HIGH RISK: Target INR is 2.5-3.5 for patients with mechanical heart valves.Draw after vitamin K administrationCBC W/PLT COUNT & AUTO [id number] 07:02:00 Test Item Value Reference Range Comments WHITE BLOOD CELL COUNT (BEAKER) (test tbqn=846) 3.0 K/ L 4.0-10.0 RED BLOOD CELL COUNT (BEAKER) (test ylaa=673) 2.21 M/ L 4.20-5.80 HEMOGLOBIN (BEAKER) (test qugk=555) 7.5 GM/DL 13.0-16.8 HEMATOCRIT (BEAKER) (test vixh=218) 23.5 % 40.0-50.0 MEAN CORPUSCULAR VOLUME (BEAKER) (test hflo=272) 106.0 fL 82.0-98.0 MEAN CORPUSCULAR HEMOGLOBIN (BEAKER) (test 34.0 pg 27.0-33.0 kodz=880) MEAN CORPUSCULAR HEMOGLOBIN CONC (BEAKER) (test 32.0 GM/DL 32.0-36.0 jsyf=500) RED CELL DISTRIBUTION WIDTH (BEAKER) (test 13.0 % 10.3-14.2 cylf=654) PLATELET COUNT (BEAKER) (test xqmf=259) 81 K/CU MM 150-430 MEAN PLATELET VOLUME (BEAKER) (test yxbp=284) 6.3 fL 6.5-10.5 NUCLEATED RED BLOOD CELLS (BEAKER) (test 0 /100 WBC 0-0 ypew=496) NEUTROPHILS RELATIVE PERCENT (BEAKER) (test 52 % nqav=491) LYMPHOCYTES RELATIVE PERCENT (BEAKER) (test 24 % yuus=357) MONOCYTES RELATIVE PERCENT (BEAKER) (test 20 % ympe=859) EOSINOPHILS RELATIVE PERCENT (BEAKER) (test 3 % zcxg=669) BASOPHILS RELATIVE PERCENT (BEAKER) (test 1 % gnhd=867) NEUTROPHILS ABSOLUTE COUNT (BEAKER) (test 1.53 K/ L 1.80-8.00 wvnn=174) LYMPHOCYTES ABSOLUTE COUNT (BEAKER) (test 0.71 K/ L 1.48-4.50 dgor=593) MONOCYTES ABSOLUTE COUNT (BEAKER) (test izot=160) 0.60 K/ L 0.00-1.30 EOSINOPHILS ABSOLUTE COUNT (BEAKER) (test 0.10 K/ L 0.00-0.50 zsdl=589) BASOPHILS ABSOLUTE COUNT (BEAKER) (test qmtr=696) 0.03 K/ L 0.00-0.20 0.00BASI METABOLIC [id number] 06:29:00 Test Item Value Reference Range Comments SODIUM (BEAKER) (test 135 meq/L 136-145 rylj=353) POTASSIUM (BEAKER) (test 4.0 meq/L 3.5-5.1 wedm=059) CHLORIDE (BEAKER) (test 106 meq/L 98-107 qkpi=760) CO2 (BEAKER) (test 22 meq/L 22-29 tmqb=689) BLOOD UREA NITROGEN 17 mg/dL 7-21 (BEAKER) (test agnc=920) CREATININE (BEAKER) (test 1.46 mg/dL 0.57-1.25 jiyg=879) GLUCOSE RANDOM (BEAKER) 75 mg/dL 70-105 (test nape=312) CALCIUM (BEAKER) (test 8.0 mg/dL 8.4-10.2 cmef=998) EGFR (BEAKER) (test 51 mL/min/1.73 sq m ESTIMATED GFR IS NOT acez=7042) ACCURATE CREATININE CLEARANCE IN PREDICTING GLOMERULAR FILTRATION RATE. ESTIMATED GFR IS NOT APPLICABLE FOR DIALYSIS PATIENTS. Specimen moderately ictericHEPATIC FUNCTION [id number] 06:29:00 Test Item Value Reference Range Comments TOTAL PROTEIN (BEAKER) (test urml=413) 5.9 gm/dL 6.0-8.3 ALBUMIN (BEAKER) (test ilkk=0891) 3.0 g/dL 3.5-5.0 BILIRUBIN TOTAL (BEAKER) (test cwyc=291) 5.4 mg/dL 0.2-1.2 BILIRUBIN DIRECT (BEAKER) (test kgbz=934) 2.7 mg/dL 0.1-0.5 ALKALINE PHOSPHATASE (BEAKER) (test hwje=381) 65 U/L 40-150 AST (SGOT) (BEAKER) (test gxvp=790) 27 U/L 5-34 ALT (SGPT) (BEAKER) (test bsdr=952) 7 U/L 6-55 Specimen moderately ictericPROTHROMBIN [id number] 06:23:00 Test Item Value Reference Range Comments PROTIME (BEAKER) (test xart=126) 31.2 seconds 11.7-14.7 INR (BEAKER) (test styu=355) 3.0 <=5.9 RECOMMENDED COUMADIN/WARFARIN INR THERAPY RANGESSTANDARD DOSE: 2.0 - 3.0 Includes: PROPHYLAXIS forvenous thrombosis, systemic embolization; TREATMENT for venous thrombosis and/or pulmonary embolus.HIGH RISK: Target INR is 2.5-3.5 for patients with mechanical heart valves.CBC W/PLT COUNT & AUTO [id number] 06:26:00 Test Item Value Reference Range Comments WHITE BLOOD CELL COUNT (BEAKER) (test mymk=036) 3.0 K/ L 4.0-10.0 RED BLOOD CELL COUNT (BEAKER) (test jydm=509) 2.16 M/ L 4.20-5.80 HEMOGLOBIN (BEAKER) (test klca=346) 7.4 GM/DL 13.0-16.8 HEMATOCRIT (BEAKER) (test lbcl=732) 23.1 % 40.0-50.0 MEAN CORPUSCULAR VOLUME (BEAKER) (test yjyi=957) 107.0 fL 82.0-98.0 MEAN CORPUSCULAR HEMOGLOBIN (BEAKER) (test 34.4 pg 27.0-33.0 apea=301) MEAN CORPUSCULAR HEMOGLOBIN CONC (BEAKER) (test 32.1 GM/DL 32.0-36.0 thle=737) RED CELL DISTRIBUTION WIDTH (BEAKER) (test 13.1 % 10.3-14.2 imwq=884) PLATELET COUNT (BEAKER) (test mhrn=017) 72 K/CU MM 150-430 MEAN PLATELET VOLUME (BEAKER) (test ahnq=505) 6.1 fL 6.5-10.5 NUCLEATED RED BLOOD CELLS (BEAKER) (test 0 /100 WBC 0-0 kgwd=585) NEUTROPHILS RELATIVE PERCENT (BEAKER) (test 58 % eauz=907) LYMPHOCYTES RELATIVE PERCENT (BEAKER) (test 21 % aquk=015) MONOCYTES RELATIVE PERCENT (BEAKER) (test 15 % gftg=939) EOSINOPHILS RELATIVE PERCENT (BEAKER) (test 4 % ysah=128) BASOPHILS RELATIVE PERCENT (BEAKER) (test 1 % veik=297) NEUTROPHILS ABSOLUTE COUNT (BEAKER) (test 1.73 K/ L 1.80-8.00 fmnr=142) LYMPHOCYTES ABSOLUTE COUNT (BEAKER) (test 0.64 K/ L 1.48-4.50 jpzy=710) MONOCYTES ABSOLUTE COUNT (BEAKER) (test gqlf=111) 0.45 K/ L 0.00-1.30 EOSINOPHILS ABSOLUTE COUNT (BEAKER) (test 0.13 K/ L 0.00-0.50 ogca=579) BASOPHILS ABSOLUTE COUNT (BEAKER) (test ulum=134) 0.02 K/ L 0.00-0.20 0.00BASIC METABOLIC [id number] 06:24:00 Test Item Value Reference Range Comments SODIUM (BEAKER) (test 134 meq/L 136-145 bhcc=143) POTASSIUM (BEAKER) (test 3.7 meq/L 3.5-5.1 minl=660) CHLORIDE (BEAKER) (test 105 meq/L 98-107 lxbh=966) CO2 (BEAKER) (test 21 meq/L 22-29 ojzb=652) BLOOD UREA NITROGEN 18 mg/dL 7-21 (BEAKER) (test lrft=656) CREATININE (BEAKER) (test 1.53 mg/dL 0.57-1.25 huzy=321) GLUCOSE RANDOM (BEAKER) 103 mg/dL 70-105 (test hsth=451) CALCIUM (BEAKER) (test 7.6 mg/dL 8.4-10.2 jftz=268) EGFR (BEAKER) (test 48 mL/min/1.73 sq m ESTIMATED GFR IS NOT mqrd=0762) ACCURATE CREATININE CLEARANCE IN PREDICTING GLOMERULAR FILTRATION RATE. ESTIMATED GFR IS NOT APPLICABLE FOR DIALYSIS PATIENTS. Specimen moderately ictericHEPATIC FUNCTION [id number] 06:19:00 Test Item Value Reference Range Comments TOTAL PROTEIN (BEAKER) (test abgp=603) 5.6 gm/dL 6.0-8.3 ALBUMIN (BEAKER) (test yizt=8430) 2.4 g/dL 3.5-5.0 BILIRUBIN TOTAL (BEAKER) (test wacw=741) 4.8 mg/dL 0.2-1.2 BILIRUBIN DIRECT (BEAKER) (test onvg=861) 2.6 mg/dL 0.1-0.5 ALKALINE PHOSPHATASE (BEAKER) (test isov=187) 70 U/L 40-150 AST (SGOT) (BEAKER) (test ymwy=209) 28 U/L 5-34 ALT (SGPT) (BEAKER) (test brcy=425) 11 U/L 6-55 Specimen moderately ictericPROTHROMBIN [id number] 06:00:00 Test Item Value Reference Range Comments PROTIME (BEAKER) (test xzfl=541) 36.7 seconds 11.7-14.7 INR (BEAKER) (test grxu=887) 3.7 <=5.9 RECOMMENDED COUMADIN/WARFARIN INR THERAPY RANGESSTANDARD DOSE: 2.0 - 3.0 Includes: PROPHYLAXIS forvenous thrombosis, systemic embolization; TREATMENT for venous thrombosis and/or pulmonary embolus.HIGH RISK: Target INR is 2.5-3.5 for patients with mechanical heart valves.BODY FLUID CULTURE + GRAM [id number] 00:51:00 Test Item Value Reference Range Comments CULTURE (BEAKER) (test nhzk=3061) No growth GRAM STAIN RESULT (BEAKER) (test 3+ WBCs sufe=9321) GRAM STAIN RESULT (BEAKER) (test No organisms seen vpdh=54071) BLOOD [id number] 17:08:00 Test Item Value Reference Range Comments CULTURE (BEAKER) (test tkup=0557) No growth in 5 days BLOOD [id number] 17:06:00 Test Item Value Reference Range Comments CULTURE (BEAKER) (test ybwh=6835) No growth in 5 days CBC W/PLT COUNT & AUTO [id number] 07:05:00 Test Item Value Reference Range Comments WHITE BLOOD CELL COUNT (BEAKER) (test tmst=869) 3.5 K/ L 4.0-10.0 RED BLOOD CELL COUNT (BEAKER) (test txhk=975) 2.16 M/ L 4.20-5.80 HEMOGLOBIN (BEAKER) (test gttn=779) 7.8 GM/DL 13.0-16.8 HEMATOCRIT (BEAKER) (test nfzd=845) 23.9 % 40.0-50.0 MEAN CORPUSCULAR VOLUME (BEAKER) (test dlvw=503) 111.0 fL 82.0-98.0 MEAN CORPUSCULAR HEMOGLOBIN (BEAKER) (test 36.3 pg 27.0-33.0 quya=666) MEAN CORPUSCULAR HEMOGLOBIN CONC (BEAKER) (test 32.8 GM/DL 32.0-36.0 ewrx=898) RED CELL DISTRIBUTION WIDTH (BEAKER) (test 13.9 % 10.3-14.2 okch=154) PLATELET COUNT (BEAKER) (test ydsa=197) 72 K/CU MM 150-430 MEAN PLATELET VOLUME (BEAKER) (test jqov=001) 6.4 fL 6.5-10.5 NUCLEATED RED BLOOD CELLS (BEAKER) (test 0 /100 WBC 0-0 igkb=757) NEUTROPHILS RELATIVE PERCENT (BEAKER) (test 51 % ghwc=016) LYMPHOCYTES RELATIVE PERCENT (BEAKER) (test 25 % zqny=788) MONOCYTES RELATIVE PERCENT (BEAKER) (test 18 % tsxg=397) EOSINOPHILS RELATIVE PERCENT (BEAKER) (test 6 % gsjr=164) BASOPHILS RELATIVE PERCENT (BEAKER) (test 0 % qhbt=974) NEUTROPHILS ABSOLUTE COUNT (BEAKER) (test 1.77 K/ L 1.80-8.00 imxf=200) LYMPHOCYTES ABSOLUTE COUNT (BEAKER) (test 0.87 K/ L 1.48-4.50 hzqx=986) MONOCYTES ABSOLUTE COUNT (BEAKER) (test ieyc=688) 0.62 K/ L 0.00-1.30 EOSINOPHILS ABSOLUTE COUNT (BEAKER) (test 0.22 K/ L 0.00-0.50 acak=690) BASOPHILS ABSOLUTE COUNT (BEAKER) (test awsl=541) 0.01 K/ L 0.00-0.20 0.00BASIC METABOLIC [id number] 06:54:00 Test Item Value Reference Range Comments SODIUM (BEAKER) (test 137 meq/L 136-145 wfjm=367) POTASSIUM (BEAKER) (test 3.8 meq/L 3.5-5.1 lyyp=311) CHLORIDE (BEAKER) (test 109 meq/L 98-107 xowm=971) CO2 (BEAKER) (test 21 meq/L 22-29 iduk=937) BLOOD UREA NITROGEN 17 mg/dL 7-21 (BEAKER) (test mchn=306) CREATININE (BEAKER) (test 1.60 mg/dL 0.57-1.25 grhl=776) GLUCOSE RANDOM (BEAKER) 76 mg/dL 70-105 (test coii=710) CALCIUM (BEAKER) (test 7.5 mg/dL 8.4-10.2 opza=248) EGFR (BEAKER) (test 46 mL/min/1.73 sq m ESTIMATED GFR IS NOT yxkf=2171) ACCURATE CREATININE CLEARANCE IN PREDICTING GLOMERULAR FILTRATION RATE. ESTIMATED GFR IS NOT APPLICABLE FOR DIALYSIS PATIENTS. Specimen moderately ictericHEPATIC FUNCTION [id number] 06:53:00 Test Item Value Reference Range Comments TOTAL PROTEIN (BEAKER) (test teye=319) 5.6 gm/dL 6.0-8.3 ALBUMIN (BEAKER) (test uwar=9403) 2.4 g/dL 3.5-5.0 BILIRUBIN TOTAL (BEAKER) (test yusc=051) 4.5 mg/dL 0.2-1.2 BILIRUBIN DIRECT (BEAKER) (test hfxx=560) 2.7 mg/dL 0.1-0.5 ALKALINE PHOSPHATASE (BEAKER) (test waoa=574) 74 U/L 40-150 AST (SGOT) (BEAKER) (test ozqd=293) 36 U/L 5-34 ALT (SGPT) (BEAKER) (test bxlr=922) 13 U/L 6-55 Specimen moderately ictericB-TYPE NATRIURETIC FACTOR (BNP)[id number] 06:52:00 Test Item Value Reference Range Comments B-TYPE NATRIURETIC PEPTIDE (BEAKER) (test 446 pg/mL 0-100 cobz=086) PROTHROMBIN [id number] 06:36:00 Test Item Value Reference Range Comments PROTIME (BEAKER) (test vgyb=634) 28.7 seconds 11.7-14.7 INR (BEAKER) (test jvyv=104) 2.7 <=5.9 RECOMMENDED COUMADIN/WARFARIN INR THERAPY RANGESSTANDARD DOSE: 2.0 - 3.0 Includes: PROPHYLAXIS forvenous thrombosis, systemic embolization; TREATMENT for venous thrombosis and/or pulmonary embolus.HIGH RISK: Target INR is 2.5-3.5 for patients with mechanical heart valves.EOSINOPHIL SMEAR, [id number] 21: 44:00 Test Item Value Reference Range Comments EOSINOPHIL SMEAR, URINE (BEAKER) (test No EOS seen No EOS seen ugpb=0996) CREATININE, RANDOM [id number] 18:02:00 Test Item Value Reference Range Comments CREATININE URINE (BEAKER) (test xrxc=088) 96.3 mg/dL Reference Range: No NormalsSODIUM, RANDOM [id number] 18:02:00 Test Item Value Reference Range Comments SODIUM URINE (BEAKER) (test undx=542) 58 meq/L Reference Range: No NormalsURINALYSIS W/ [id number] 17:33:00 Test Item Value Reference Range Comments COLOR (BEAKER) (test scxo=837) Yellow CLARITY (BEAKER) (test luzw=880) Clear SPECIFIC GRAVITY UA (BEAKER) (test fhwo=271) 1.009 1.001-1.035 PH UA (BEAKER) (test nkfb=609) 6.0 5.0-8.0 PROTEIN UA (BEAKER) (test rbjk=002) Negative Negative GLUCOSE UA (BEAKER) (test eafs=491) Negative Negative KETONES UA (BEAKER) (test yhzc=889) Negative Negative BILIRUBIN UA (BEAKER) (test gauk=467) Negative Negative BLOOD UA (BEAKER) (test qjsi=687) Negative Negative NITRITE UA (BEAKER) (test odow=186) Negative Negative LEUKOCYTE ESTERASE UA (BEAKER) (test jdwq=585) Negative Negative UROBILINOGEN UA (BEAKER) (test fbic=456) 4.0 mg/dL 0.2-1.0 RBC UA (BEAKER) (test cofs=090) < /HPF WBC UA (BEAKER) (test rrss=099) 2 /HPF BACTERIA (BEAKER) (test pvlx=749) Rare SOURCE(BEAKER) (test vvfq=1252) CBC W/PLT COUNT & AUTO [id number] 06:53:00 Test Item Value Reference Range Comments WHITE BLOOD CELL COUNT (BEAKER) (test ezfm=469) 3.5 K/ L 4.0-10.0 RED BLOOD CELL COUNT (BEAKER) (test xqhk=273) 2.17 M/ L 4.20-5.80 HEMOGLOBIN (BEAKER) (test jrfm=994) 7.9 GM/DL 13.0-16.8 HEMATOCRIT (BEAKER) (test icap=912) 23.9 % 40.0-50.0 MEAN CORPUSCULAR VOLUME (BEAKER) (test glno=853) 110.0 fL 82.0-98.0 MEAN CORPUSCULAR HEMOGLOBIN (BEAKER) (test 36.1 pg 27.0-33.0 qwwx=901) MEAN CORPUSCULAR HEMOGLOBIN CONC (BEAKER) (test 32.9 GM/DL 32.0-36.0 fnbv=246) RED CELL DISTRIBUTION WIDTH (BEAKER) (test 14.0 % 10.3-14.2 tehe=074) PLATELET COUNT (BEAKER) (test stxn=871) 77 K/CU MM 150-430 MEAN PLATELET VOLUME (BEAKER) (test zpfo=107) 6.1 fL 6.5-10.5 NUCLEATED RED BLOOD CELLS (BEAKER) (test 0 /100 WBC 0-0 ttbo=096) NEUTROPHILS RELATIVE PERCENT (BEAKER) (test 56 % djaa=160) LYMPHOCYTES RELATIVE PERCENT (BEAKER) (test 20 % eupl=416) MONOCYTES RELATIVE PERCENT (BEAKER) (test 18 % ejkj=265) EOSINOPHILS RELATIVE PERCENT (BEAKER) (test 6 % xggg=529) BASOPHILS RELATIVE PERCENT (BEAKER) (test 1 % crhr=817) NEUTROPHILS ABSOLUTE COUNT (BEAKER) (test 1.95 K/ L 1.80-8.00 aggm=394) LYMPHOCYTES ABSOLUTE COUNT (BEAKER) (test 0.69 K/ L 1.48-4.50 iuhm=295) MONOCYTES ABSOLUTE COUNT (BEAKER) (test hinm=706) 0.62 K/ L 0.00-1.30 EOSINOPHILS ABSOLUTE COUNT (BEAKER) (test 0.20 K/ L 0.00-0.50 ougz=372) BASOPHILS ABSOLUTE COUNT (BEAKER) (test eqxx=818) 0.03 K/ L 0.00-0.20 0.00BASIC METABOLIC [id number] 06:45:00 Test Item Value Reference Range Comments SODIUM (BEAKER) (test 134 meq/L 136-145 qnsx=654) POTASSIUM (BEAKER) (test 3.6 meq/L 3.5-5.1 vvkn=198) CHLORIDE (BEAKER) (test 106 meq/L 98-107 xqpl=774) CO2 (BEAKER) (test 21 meq/L 22-29 pafo=881) BLOOD UREA NITROGEN 14 mg/dL 7-21 (BEAKER) (test wqek=590) CREATININE (BEAKER) (test 1.33 mg/dL 0.57-1.25 kjwi=228) GLUCOSE RANDOM (BEAKER) 71 mg/dL 70-105 (test hpqk=036) CALCIUM (BEAKER) (test 7.6 mg/dL 8.4-10.2 aqwq=712) EGFR (BEAKER) (test 57 mL/min/1.73 sq m ESTIMATED GFR IS NOT yfta=9112) ACCURATE CREATININE CLEARANCE IN PREDICTING GLOMERULAR FILTRATION RATE. ESTIMATED GFR IS NOT APPLICABLE FOR DIALYSIS PATIENTS. Specimen moderately ictericHEPATIC FUNCTION [id number] 06:40:00 Test Item Value Reference Range Comments TOTAL PROTEIN (BEAKER) (test mmcl=011) 5.6 gm/dL 6.0-8.3 ALBUMIN (BEAKER) (test epqd=8795) 2.1 g/dL 3.5-5.0 BILIRUBIN TOTAL (BEAKER) (test cfqy=638) 4.4 mg/dL 0.2-1.2 BILIRUBIN DIRECT (BEAKER) (test mvag=084) 2.9 mg/dL 0.1-0.5 ALKALINE PHOSPHATASE (BEAKER) (test aqiz=600) 86 U/L 40-150 AST (SGOT) (BEAKER) (test miml=564) 45 U/L 5-34 ALT (SGPT) (BEAKER) (test mrmv=888) 13 U/L 6-55 Specimen moderately ictericPROTHROMBIN [id number] 06:05:00 Test Item Value Reference Range Comments PROTIME (BEAKER) (test rgsw=336) 29.4 seconds 11.7-14.7 INR (BEAKER) (test psyv=255) 2.8 <=5.9 RECOMMENDED COUMADIN/WARFARIN INR THERAPY RANGESSTANDARD DOSE: 2.0 - 3.0 Includes: PROPHYLAXIS forvenous thrombosis, systemic embolization; TREATMENT for venous thrombosis and/or pulmonary embolus.HIGH RISK: Target INR is 2.5-3.5 for patients with mechanical heart valves.BODY FLUID CELL COUNT WITH [id number] 20:51:00 Test Item Value Reference Range Comments APPEARANCE FLUID (BEAKER) (test wlgd=811) Slightly Hazy Clear COLOR FLUID (BEAKER) (test ryks=081) Yellow Colorless, Straw RBC FLUID (BEAKER) (test vrdz=821) 545 /cu mm <=1 ADJUSTED WBC FLUID (BEAKER) (test tqvd=9150) 104 /cu mm <=5 LINING CELLS (BEAKER) (test hjzv=0583) 1 /cu mm <=1 NEUTROPHILS FLUID (BEAKER) (test bgti=5488) 3 % LYMPHS FLUID (BEAKER) (test zzsf=440) 13 % MONO/MACROPHAGE FLUID (BEAKER) (test 84 % xirf=439) EOSINOPHILS FLUID (BEAKER) (test pqgf=103) 0 % BASO FLUID (BEAKER) (test uzsp=872) 0 % CONTAINER BODY FLUID (BEAKER) (test EDTA Tube buye=5334) POCT-GLUCOSE [id number] 18:48:00 Test Item Value Reference Range Comments POC-GLUCOSE METER (BEAKER) 105 mg/dL 70-110 TESTED AT [address] (test xdtj=6903) [facility] [address] BASIC METABOLIC [id number] 05:45:00 Test Item Value Reference Range Comments SODIUM (BEAKER) (test 133 meq/L 136-145 jtde=702) POTASSIUM (BEAKER) (test 4.3 meq/L 3.5-5.1 Specimen moderately vmwd=618) hemolyzed CHLORIDE (BEAKER) (test 107 meq/L 98-107 yvth=078) CO2 (BEAKER) (test 19 meq/L 22-29 ctat=844) BLOOD UREA NITROGEN 10 mg/dL 7-21 (BEAKER) (test stgw=811) CREATININE (BEAKER) (test 0.86 mg/dL 0.57-1.25 Specimen moderately gyjy=300) hemolyzed GLUCOSE RANDOM (BEAKER) 68 mg/dL 70-105 (test fklp=617) CALCIUM (BEAKER) (test 7.5 mg/dL 8.4-10.2 hcqm=331) EGFR (BEAKER) (test 94 mL/min/1.73 sq m ESTIMATED GFR IS NOT vtxa=5716) ACCURATE CREATININE CLEARANCE IN PREDICTING GLOMERULAR FILTRATION RATE. ESTIMATED GFR IS NOT APPLICABLE FOR DIALYSIS PATIENTS. Specimen slightly ictericHEPATIC FUNCTION [id number] 05:45:00 Test Item Value Reference Range Comments TOTAL PROTEIN (BEAKER) (test 5.9 gm/dL 6.0-8.3 Specimen moderately hemolyzed ptnr=840) ALBUMIN (BEAKER) (test 1.9 g/dL 3.5-5.0 Specimen moderately hemolyzed tbom=2213) BILIRUBIN TOTAL (BEAKER) (test 4.4 mg/dL 0.2-1.2 Specimen moderately hemolyzed ainq=185) BILIRUBIN DIRECT (BEAKER) 2.6 mg/dL 0.1-0.5 Specimen moderately hemolyzed (test hkzy=482) ALKALINE PHOSPHATASE (BEAKER) 86 U/L 40-150 (test uumm=081) AST (SGOT) (BEAKER) (test 74 U/L 5-34 Specimen moderately hemolyzed tnxb=914) ALT (SGPT) (BEAKER) (test 17 U/L 6-55 Specimen moderately vhvy=762) hemolyzed Specimen slightly ictericCBC W/PLT COUNT & AUTO [id number] 05:21 :00 Test Item Value Reference Range Comments WHITE BLOOD CELL COUNT (BEAKER) (test vpaq=699) 3.5 K/ L 4.0-10.0 RED BLOOD CELL COUNT (BEAKER) (test ioup=300) 2.06 M/ L 4.20-5.80 HEMOGLOBIN (BEAKER) (test pbvj=059) 7.9 GM/DL 13.0-16.8 HEMATOCRIT (BEAKER) (test swqy=921) 22.8 % 40.0-50.0 MEAN CORPUSCULAR VOLUME (BEAKER) (test muxh=150) 110.0 fL 82.0-98.0 MEAN CORPUSCULAR HEMOGLOBIN (BEAKER) (test 38.2 pg 27.0-33.0 mpnt=010) MEAN CORPUSCULAR HEMOGLOBIN CONC (BEAKER) (test 34.6 GM/DL 32.0-36.0 hrlf=320) RED CELL DISTRIBUTION WIDTH (BEAKER) (test 13.5 % 10.3-14.2 swbq=058) PLATELET COUNT (BEAKER) (test hooy=736) 61 K/CU MM 150-430 MEAN PLATELET VOLUME (BEAKER) (test jvrf=043) 6.8 fL 6.5-10.5 NUCLEATED RED BLOOD CELLS (BEAKER) (test 0 /100 WBC 0-0 fpsv=029) NEUTROPHILS RELATIVE PERCENT (BEAKER) (test 51 % hvlu=968) LYMPHOCYTES RELATIVE PERCENT (BEAKER) (test 24 % olqb=713) MONOCYTES RELATIVE PERCENT (BEAKER) (test 18 % ntbi=954) EOSINOPHILS RELATIVE PERCENT (BEAKER) (test 7 % uiou=099) BASOPHILS RELATIVE PERCENT (BEAKER) (test 1 % oiqc=756) NEUTROPHILS ABSOLUTE COUNT (BEAKER) (test 1.76 K/ L 1.80-8.00 fnha=361) LYMPHOCYTES ABSOLUTE COUNT (BEAKER) (test 0.85 K/ L 1.48-4.50 pgtw=971) MONOCYTES ABSOLUTE COUNT (BEAKER) (test fduu=375) 0.61 K/ L 0.00-1.30 EOSINOPHILS ABSOLUTE COUNT (BEAKER) (test 0.23 K/ L 0.00-0.50 wgaw=191) BASOPHILS ABSOLUTE COUNT (BEAKER) (test ogpw=679) 0.02 K/ L 0.00-0.20 0.00PROTHROMBIN [id number] 05:19:00 Test Item Value Reference Range Comments PROTIME (BEAKER) (test btpu=277) 28.2 seconds 11.7-14.7 INR (BEAKER) (test awvh=296) 2.6 <=5.9 RECOMMENDED COUMADIN/WARFARIN INR THERAPY RANGESSTANDARD DOSE: 2.0 - 3.0 Includes: PROPHYLAXIS forvenous thrombosis, systemic embolization; TREATMENT for venous thrombosis and/or pulmonary embolus.HIGH RISK: Target INR is 2.5-3.5 for patients with mechanical heart valves.BODY FLUID CULTURE + GRAM [id number] 14:14:00 Test Item Value Reference Range Comments CULTURE (BEAKER) (test wqwq=9765) No growth GRAM STAIN RESULT (BEAKER) (test 2+ WBCs eddh=2367) GRAM STAIN RESULT (BEAKER) (test No organisms seen hdap=23215) CBC W/PLT COUNT & AUTO [id number] 10:28:00 Test Item Value Reference Range Comments WHITE BLOOD CELL COUNT (BEAKER) (test baea=026) 3.6 K/ L 4.0-10.0 RED BLOOD CELL COUNT (BEAKER) (test lzsr=830) 2.17 M/ L 4.20-5.80 HEMOGLOBIN (BEAKER) (test liln=146) 7.7 GM/DL 13.0-16.8 HEMATOCRIT (BEAKER) (test xtmb=376) 23.8 % 40.0-50.0 MEAN CORPUSCULAR VOLUME (BEAKER) (test thhg=400) 110.0 fL 82.0-98.0 MEAN CORPUSCULAR HEMOGLOBIN (BEAKER) (test 35.3 pg 27.0-33.0 rgss=385) MEAN CORPUSCULAR HEMOGLOBIN CONC (BEAKER) (test 32.1 GM/DL 32.0-36.0 zsso=344) RED CELL DISTRIBUTION WIDTH (BEAKER) (test 13.7 % 10.3-14.2 xgvd=901) PLATELET COUNT (BEAKER) (test mcnp=500) 62 K/CU MM 150-430 MEAN PLATELET VOLUME (BEAKER) (test cyyz=379) 6.5 fL 6.5-10.5 NUCLEATED RED BLOOD CELLS (BEAKER) (test 0 /100 WBC 0-0 symi=677) NEUTROPHILS RELATIVE PERCENT (BEAKER) (test 58 % rlrf=652) LYMPHOCYTES RELATIVE PERCENT (BEAKER) (test 18 % aiyc=710) MONOCYTES RELATIVE PERCENT (BEAKER) (test 17 % prpq=668) EOSINOPHILS RELATIVE PERCENT (BEAKER) (test 8 % szwg=850) BASOPHILS RELATIVE PERCENT (BEAKER) (test 0 % eopo=164) NEUTROPHILS ABSOLUTE COUNT (BEAKER) (test 2.10 K/ L 1.80-8.00 jvbe=473) LYMPHOCYTES ABSOLUTE COUNT (BEAKER) (test 0.63 K/ L 1.48-4.50 wflh=618) MONOCYTES ABSOLUTE COUNT (BEAKER) (test lkse=622) 0.59 K/ L 0.00-1.30 EOSINOPHILS ABSOLUTE COUNT (BEAKER) (test 0.28 K/ L 0.00-0.50 jjkd=514) BASOPHILS ABSOLUTE COUNT (BEAKER) (test nqkd=767) 0.00 K/ L 0.00-0.20 [id number] 10:16:00 Test Item Value Reference Range Comments PROCALCITONIN (BEAKER) (test rsgz=1833) < ng/mL <0.05 SEPSIS RISK (ng/mL)Low: 0.05-0.50Intermediate: 0.51-2.00High: & gt;=2.01HEPATIC FUNCTION [id number] 06:26:00 Test Item Value Reference Range Comments TOTAL PROTEIN (BEAKER) (test vggv=714) 5.6 gm/dL 6.0-8.3 ALBUMIN (BEAKER) (test yvtt=3031) 1.9 g/dL 3.5-5.0 BILIRUBIN TOTAL (BEAKER) (test lddj=758) 4.7 mg/dL 0.2-1.2 BILIRUBIN DIRECT (BEAKER) (test ydgh=813) 2.9 mg/dL 0.1-0.5 ALKALINE PHOSPHATASE (BEAKER) (test nbzr=441) 85 U/L 40-150 AST (SGOT) (BEAKER) (test bmfs=072) 53 U/L 5-34 ALT (SGPT) (BEAKER) (test cmvb=563) 14 U/L 6-55 Specimen moderately ictericBASIC METABOLIC [id number] 06:26:00 Test Item Value Reference Range Comments SODIUM (BEAKER) (test 134 meq/L 136-145 mlta=590) POTASSIUM (BEAKER) (test 3.8 meq/L 3.5-5.1 snay=921) CHLORIDE (BEAKER) (test 107 meq/L 98-107 hmtu=789) CO2 (BEAKER) (test 19 meq/L 22-29 jpna=788) BLOOD UREA NITROGEN 8 mg/dL 7-21 (BEAKER) (test iuoj=566) CREATININE (BEAKER) (test 0.73 mg/dL 0.57-1.25 wkzu=207) GLUCOSE RANDOM (BEAKER) 73 mg/dL 70-105 (test fhgl=738) CALCIUM (BEAKER) (test 7.2 mg/dL 8.4-10.2 relh=279) EGFR (BEAKER) (test 113 mL/min/1.73 sq m ESTIMATED GFR IS NOT iefg=0289) ACCURATE CREATININE CLEARANCE IN PREDICTING GLOMERULAR FILTRATION RATE. ESTIMATED GFR IS NOT APPLICABLE FOR DIALYSIS PATIENTS. Specimen moderately ictericPROTHROMBIN [id number] 06:05:00 Test Item Value Reference Range Comments PROTIME (BEAKER) (test omme=737) 30.9 seconds 11.7-14.7 INR (BEAKER) (test mfct=296) 3.0 <=5.9 RECOMMENDED COUMADIN/WARFARIN INR THERAPY RANGESSTANDARD DOSE: 2.0 - 3.0 Includes: PROPHYLAXIS forvenous thrombosis, systemic embolization; TREATMENT for venous thrombosis and/or pulmonary embolus.HIGH RISK: Target INR is 2.5-3.5 for patients with mechanical heart valves.[id number] 05:54:00 Test Item Value Reference Range Comments PREALBUMIN (BEAKER) (test cibp=721) < mg/dL 14-45 URINE [id number] 12:11:00 Test Item Value Reference Range Comments CULTURE (BEAKER) (test kztj=5238) No growth VANCOMYCIN LEVEL, [id number] 09:26:00 Test Item Value Reference Range Comments VANCOMYCIN TROUGH (BEAKER) (test uyin=420) 15.3 ug/mL 10.0-20.0 HEPATIC FUNCTION [id number] 06:17:00 Test Item Value Reference Range Comments TOTAL PROTEIN (BEAKER) (test otlh=956) 5.6 gm/dL 6.0-8.3 ALBUMIN (BEAKER) (test nlpb=8415) 2.0 g/dL 3.5-5.0 BILIRUBIN TOTAL (BEAKER) (test mzev=305) 4.2 mg/dL 0.2-1.2 BILIRUBIN DIRECT (BEAKER) (test drfa=412) 2.7 mg/dL 0.1-0.5 ALKALINE PHOSPHATASE (BEAKER) (test nzjz=263) 98 U/L 40-150 AST (SGOT) (BEAKER) (test yqwb=808) 45 U/L 5-34 ALT (SGPT) (BEAKER) (test rmco=783) 12 U/L 6-55 Specimen slightly ictericBASIC METABOLIC [id number] 06:17:00 Test Item Value Reference Range Comments SODIUM (BEAKER) (test 133 meq/L 136-145 fvxo=929) POTASSIUM (BEAKER) (test 3.4 meq/L 3.5-5.1 zpcl=606) CHLORIDE (BEAKER) (test 107 meq/L 98-107 mybo=542) CO2 (BEAKER) (test 22 meq/L 22-29 zeor=477) BLOOD UREA NITROGEN 7 mg/dL 7-21 (BEAKER) (test rils=175) CREATININE (BEAKER) (test 0.73 mg/dL 0.57-1.25 wmdm=304) GLUCOSE RANDOM (BEAKER) 87 mg/dL 70-105 (test pvrk=047) CALCIUM (BEAKER) (test 7.2 mg/dL 8.4-10.2 ddim=904) EGFR (BEAKER) (test 113 mL/min/1.73 sq m ESTIMATED GFR IS NOT kcre=4584) ACCURATE CREATININE CLEARANCE IN PREDICTING GLOMERULAR FILTRATION RATE. ESTIMATED GFR IS NOT APPLICABLE FOR DIALYSIS PATIENTS. Specimen slightly ictericPROTHROMBIN [id number] 06:04:00 Test Item Value Reference Range Comments PROTIME (BEAKER) (test lsoa=343) 31.7 seconds 11.7-14.7 INR (BEAKER) (test eaga=582) 3.0 <=5.9 RECOMMENDED COUMADIN/WARFARIN INR THERAPY RANGESSTANDARD DOSE: 2.0 - 3.0 Includes: PROPHYLAXIS forvenous thrombosis, systemic embolization; TREATMENT for venous thrombosis and/or pulmonary embolus.HIGH RISK: Target INR is 2.5-3.5 for patients with mechanical heart valves.VITAMIN B12 AND [id number] 19:36 :00 Test Item Value Reference Range Comments VITAMIN B12 (BEAKER) (test ywjo=501) 1121 pg/mL 213-816 FOLATE (BEAKER) (test dkxc=594) 18.3 ng/mL >=7.0 Effective 09/13/2014: Folate Reference Range ChangeNew: >=7.0 Previous: & gt;=5.4VITAMIN B12 AND [id number] 14:57:00 Test Item Value Reference Range Comments VITAMIN B12 (BEAKER) (test vdxy=647) 1325 pg/mL 213-816 FOLATE (BEAKER) (test lhbv=653) 8.3 ng/mL >=7.0 Effective 09/13/2014: Folate Reference Range ChangeNew: >=7.0 Previous: & gt;=5.4ANTI-NUCLEAR ANTIBODY (CHERYL)2017-02-03 13:56:00 Test Item Value Reference Range Comments ANTI-NUCLEAR ANTIBODY (CHERYL) (BEAKER) (test Negative Negative ffit=874) HEPATITIS B CORE ANTIBODY, [id number] 12:27:00 Test Item Value Reference Range Comments HEPATITIS B CORE TOTAL ANTIBODY (BEAKER) (test Nonreactive Nonreactive hkit=475) CRYPTOCOCCAL [id number] 11:25:00 Test Item Value Reference Range Comments CRYPTOCOCCAL ANTIGEN, SERUM (BEAKER) (test Negative Negative, Interference jgsj=4061) HEPATITIS B SURFACE [id number] 11:15:00 Test Item Value Reference Range Comments HEPATITIS B SURFACE ANTIBODY (BEAKER) (test < mIU/mL <8.0 ajyk=380) HEPATITIS B SURFACE [id number] 09:53:00 Test Item Value Reference Range Comments HEPATITIS B SURFACE ANTIGEN (2) (BEAKER) (test Nonreactive Nonreactive szdr=4312) HIV-1 ANTIGEN WITH HIV-1/2 [id number] 09:53:00 Test Item Value Reference Range Comments HIV-1 ANTIGEN WITH HIV 1\\T\\2 ANTIBODY (2) Nonreactive Nonreactive (BEAKER) (test bgld=1813) HEPATIC FUNCTION [id number] 07:01:00 Test Item Value Reference Range Comments TOTAL PROTEIN (BEAKER) (test zxcc=336) 5.5 gm/dL 6.0-8.3 ALBUMIN (BEAKER) (test qjku=4539) 2.0 g/dL 3.5-5.0 BILIRUBIN TOTAL (BEAKER) (test pkhw=163) 3.8 mg/dL 0.2-1.2 BILIRUBIN DIRECT (BEAKER) (test ubil=265) 2.5 mg/dL 0.1-0.5 ALKALINE PHOSPHATASE (BEAKER) (test qecf=345) 108 U/L 40-150 AST (SGOT) (BEAKER) (test wumr=906) 40 U/L 5-34 ALT (SGPT) (BEAKER) (test jccq=989) 10 U/L 6-55 Specimen slightly ictericBASIC METABOLIC [id number] 07:01:00 Test Item Value Reference Range Comments SODIUM (BEAKER) (test 133 meq/L 136-145 wque=662) POTASSIUM (BEAKER) (test 3.7 meq/L 3.5-5.1 vhzz=834) CHLORIDE (BEAKER) (test 108 meq/L 98-107 wrap=931) CO2 (BEAKER) (test 20 meq/L 22-29 pnuq=193) BLOOD UREA NITROGEN 7 mg/dL 7-21 (BEAKER) (test ddeu=855) CREATININE (BEAKER) (test 0.76 mg/dL 0.57-1.25 erwg=586) GLUCOSE RANDOM (BEAKER) 100 mg/dL 70-105 (test rsmv=813) CALCIUM (BEAKER) (test 7.3 mg/dL 8.4-10.2 ykbc=934) EGFR (BEAKER) (test 108 mL/min/1.73 sq m ESTIMATED GFR IS NOT jkyl=8448) ACCURATE CREATININE CLEARANCE IN PREDICTING GLOMERULAR FILTRATION RATE. ESTIMATED GFR IS NOT APPLICABLE FOR DIALYSIS PATIENTS. Specimen slightly ictericCBC W/PLT COUNT & AUTO [id number] 06:53 :00 Test Item Value Reference Range Comments WHITE BLOOD CELL COUNT (BEAKER) (test rogp=624) 3.5 K/ L 4.0-10.0 RED BLOOD CELL COUNT (BEAKER) (test upql=491) 1.83 M/ L 4.20-5.80 HEMOGLOBIN (BEAKER) (test jzwm=682) 7.3 GM/DL 13.0-16.8 HEMATOCRIT (BEAKER) (test ktuy=985) 19.9 % 40.0-50.0 MEAN CORPUSCULAR VOLUME (BEAKER) (test vflg=646) 109.0 fL 82.0-98.0 MEAN CORPUSCULAR HEMOGLOBIN (BEAKER) (test 39.9 pg 27.0-33.0 khtt=500) MEAN CORPUSCULAR HEMOGLOBIN CONC (BEAKER) (test 36.6 GM/DL 32.0-36.0 cfhk=372) RED CELL DISTRIBUTION WIDTH (BEAKER) (test 14.3 % 10.3-14.2 zrcd=577) PLATELET COUNT (BEAKER) (test rpdm=205) 35 K/CU MM 150-430 MEAN PLATELET VOLUME (BEAKER) (test ggju=451) 6.6 fL 6.5-10.5 NUCLEATED RED BLOOD CELLS (BEAKER) (test 0 /100 WBC 0-0 ymqd=076) NEUTROPHILS RELATIVE PERCENT (BEAKER) (test 60 % bwop=680) LYMPHOCYTES RELATIVE PERCENT (BEAKER) (test 18 % ozqc=838) MONOCYTES RELATIVE PERCENT (BEAKER) (test 17 % dzzj=784) EOSINOPHILS RELATIVE PERCENT (BEAKER) (test 6 % uuuk=519) BASOPHILS RELATIVE PERCENT (BEAKER) (test 0 % okqx=041) NEUTROPHILS ABSOLUTE COUNT (BEAKER) (test 2.06 K/ L 1.80-8.00 hvqw=985) LYMPHOCYTES ABSOLUTE COUNT (BEAKER) (test 0.61 K/ L 1.48-4.50 kvlm=710) MONOCYTES ABSOLUTE COUNT (BEAKER) (test bfun=927) 0.58 K/ L 0.00-1.30 EOSINOPHILS ABSOLUTE COUNT (BEAKER) (test 0.19 K/ L 0.00-0.50 tpuq=226) BASOPHILS ABSOLUTE COUNT (BEAKER) (test soqc=808) 0.01 K/ L 0.00-0.20 0.00PROTHROMBIN [id number] 06:39:00 Test Item Value Reference Range Comments PROTIME (BEAKER) (test ssps=333) 30.6 seconds 11.7-14.7 INR (BEAKER) (test wubq=920) 2.9 <=5.9 RECOMMENDED COUMADIN/WARFARIN INR THERAPY RANGESSTANDARD DOSE: 2.0 - 3.0 Includes: PROPHYLAXIS forvenous thrombosis, systemic embolization; TREATMENT for venous thrombosis and/or pulmonary embolus.HIGH RISK: Target INR is 2.5-3.5 for patients with mechanical heart valves.URINALYSIS W/ [id number] 16 :58:00 Test Item Value Reference Range Comments COLOR (BEAKER) (test dkot=093) Yellow CLARITY (BEAKER) (test neko=841) Clear SPECIFIC GRAVITY UA (BEAKER) (test 1.025 1.001-1.035 tjoh=765) PH UA (BEAKER) (test jtls=314) 7.0 5.0-8.0 PROTEIN UA (BEAKER) (test ixef=223) Negative Negative GLUCOSE UA (BEAKER) (test wfhc=512) Negative Negative KETONES UA (BEAKER) (test cuiu=641) Negative Negative BILIRUBIN UA (BEAKER) (test llof=654) Positive Negative BLOOD UA (BEAKER) (test nzjr=661) Negative Negative NITRITE UA (BEAKER) (test kden=812) Negative Negative LEUKOCYTE ESTERASE UA (BEAKER) (test Negative Negative kkoj=669) UROBILINOGEN UA (BEAKER) (test rdfg=169) 8.0 mg/dL 0.2-1.0 RBC UA (BEAKER) (test qmiv=653) 0 /HPF WBC UA (BEAKER) (test vsql=107) 2 /HPF MUCUS (BEAKER) (test gnet=2063) Rare HYALINE CASTS (BEAKER) (test fkpk=262) 3 /LPF SOURCE(BEAKER) (test qxnd=9623) Urine, Clean Catch [id number] 13:32:00 Test Item Value Reference Range Comments FERRITIN (BEAKER) (test qenj=860) 116 ng/mL 5-275 Effective 09/13/2014: Reference Range ChangeNew: Male 5-275 Previous: Male 22-322 Female 5-275 Female 10-291HEPATITIS A ANTIBODY, [id number] 13:19:00 Test Item Value Reference Range Comments HEPATITIS A IGG ANTIBODY (BEAKER) (test crhz=8370) Reactive Nonreactive ALPHA FETOPROTEIN (AFP), TUMOR [id number] 13:17:00 Test Item Value Reference Range Comments ALPHA-FETOPROTEIN (BEAKER) (test yehu=0791) 4.5 ng/mL <10.0 Effective 09/13/2014: Reference Range ChangeNew: <10.0 Previous: 0.0- 8.0HEPATITIS C [id number] 13:17:00 Test Item Value Reference Range Comments HEPATITIS C ANTIBODY (BEAKER) (test pxgp=839) Nonreactive Nonreactive BODY FLUID CELL COUNT WITH [id number] 13:03:00 Test Item Value Reference Range Comments APPEARANCE FLUID (BEAKER) (test qamm=738) Cloudy Clear COLOR FLUID (BEAKER) (test hfrp=373) Yellow Colorless, Straw RBC FLUID (BEAKER) (test mmoi=313) 1519 /cu mm <=1 ADJUSTED WBC FLUID (BEAKER) (test zoil=1852) 108 /cu mm <=5 LINING CELLS (BEAKER) (test kgke=4673) 14 /cu mm <=1 NEUTROPHILS FLUID (BEAKER) (test taab=8439) 11 % LYMPHS FLUID (BEAKER) (test nmxh=463) 30 % MONO/MACROPHAGE FLUID (BEAKER) (test slgn=529) 59 % EOSINOPHILS FLUID (BEAKER) (test mxlr=501) 0 % BASO FLUID (BEAKER) (test etbn=545) 0 % CONTAINER BODY FLUID (BEAKER) (test eoxk=5586) EDTA Tube BASIC METABOLIC [id number] 12:56:00 Test Item Value Reference Range Comments SODIUM (BEAKER) (test 131 meq/L 136-145 ihmr=760) POTASSIUM (BEAKER) (test 4.0 meq/L 3.5-5.1 Specimen moderately acpj=651) hemolyzed CHLORIDE (BEAKER) (test 105 meq/L 98-107 azmx=597) CO2 (BEAKER) (test 18 meq/L 22-29 dtwq=220) BLOOD UREA NITROGEN 6 mg/dL 7-21 (BEAKER) (test yfpd=112) CREATININE (BEAKER) (test 0.72 mg/dL 0.57-1.25 Specimen moderately fsik=844) hemolyzed GLUCOSE RANDOM (BEAKER) 103 mg/dL 70-105 (test tztw=422) CALCIUM (BEAKER) (test 7.4 mg/dL 8.4-10.2 cfyg=957) EGFR (BEAKER) (test 115 mL/min/1.73 sq m ESTIMATED GFR IS NOT xtqr=0484) ACCURATE CREATININE CLEARANCE IN PREDICTING GLOMERULAR FILTRATION RATE. ESTIMATED GFR IS NOT APPLICABLE FOR DIALYSIS PATIENTS. Specimen moderately ictericIRON, TIBC, % SAT. (WITHOUT FERRITIN)2017-02-02 12:56 :00 Test Item Value Reference Range Comments IRON (BEAKER) (test qmqg=897) 55 ug/dL 40-160 TOTAL IRON BINDING CAPACITY (BEAKER) (test 175 ug/dL 250-450 inci=209) IRON % SATURATION (2) (BEAKER) (test bfbj=1201) 31 % 20-55 HEPATIC FUNCTION [id number] 12:50:00 Test Item Value Reference Range Comments TOTAL PROTEIN (BEAKER) (test 6.7 gm/dL 6.0-8.3 Specimen moderately hemolyzed wwrj=331) ALBUMIN (BEAKER) (test 2.0 g/dL 3.5-5.0 Specimen moderately hemolyzed ddfv=6606) BILIRUBIN TOTAL (BEAKER) (test 5.1 mg/dL 0.2-1.2 Specimen moderately hemolyzed ijzw=173) BILIRUBIN DIRECT (BEAKER) 2.8 mg/dL 0.1-0.5 Specimen moderately hemolyzed (test awgr=589) ALKALINE PHOSPHATASE (BEAKER) 99 U/L 40-150 (test cjnj=363) AST (SGOT) (BEAKER) (test 62 U/L 5-34 Specimen moderately hemolyzed erdk=118) ALT (SGPT) (BEAKER) (test 15 U/L 6-55 Specimen moderately llph=377) hemolyzed Specimen moderately ictericCBC W/PLT COUNT & AUTO [id number] 12: 47:00 Test Item Value Reference Range Comments WHITE BLOOD CELL COUNT (BEAKER) (test tuew=751) 3.3 K/ L 4.0-10.0 RED BLOOD CELL COUNT (BEAKER) (test yhxd=593) 2.08 M/ L 4.20-5.80 HEMOGLOBIN (BEAKER) (test agbf=834) 7.8 GM/DL 13.0-16.8 HEMATOCRIT (BEAKER) (test gfwp=585) 22.9 % 40.0-50.0 MEAN CORPUSCULAR VOLUME (BEAKER) (test smmr=986) 110.0 fL 82.0-98.0 MEAN CORPUSCULAR HEMOGLOBIN (BEAKER) (test 37.4 pg 27.0-33.0 gmtv=610) MEAN CORPUSCULAR HEMOGLOBIN CONC (BEAKER) (test 34.1 GM/DL 32.0-36.0 qlsq=667) RED CELL DISTRIBUTION WIDTH (BEAKER) (test 15.0 % 10.3-14.2 rjpz=638) PLATELET COUNT (BEAKER) (test xqty=060) 48 K/CU MM 150-430 MEAN PLATELET VOLUME (BEAKER) (test ulkd=000) 6.6 fL 6.5-10.5 NUCLEATED RED BLOOD CELLS (BEAKER) (test 0 /100 WBC 0-0 qror=277) NEUTROPHILS RELATIVE PERCENT (BEAKER) (test 62 % djov=549) LYMPHOCYTES RELATIVE PERCENT (BEAKER) (test 17 % lyet=953) MONOCYTES RELATIVE PERCENT (BEAKER) (test 15 % ckzm=864) EOSINOPHILS RELATIVE PERCENT (BEAKER) (test 6 % kwzd=316) BASOPHILS RELATIVE PERCENT (BEAKER) (test 0 % byxz=776) NEUTROPHILS ABSOLUTE COUNT (BEAKER) (test 2.03 K/ L 1.80-8.00 uxmx=456) LYMPHOCYTES ABSOLUTE COUNT (BEAKER) (test 0.57 K/ L 1.48-4.50 zsgl=991) MONOCYTES ABSOLUTE COUNT (BEAKER) (test ngsj=249) 0.48 K/ L 0.00-1.30 EOSINOPHILS ABSOLUTE COUNT (BEAKER) (test 0.19 K/ L 0.00-0.50 kaej=953) BASOPHILS ABSOLUTE COUNT (BEAKER) (test uyht=634) 0.01 K/ L 0.00-0.20 0.00PROTHROMBIN [id number] 12:42:00 Test Item Value Reference Range Comments PROTIME (BEAKER) (test odzh=235) 27.0 seconds 11.7-14.7 INR (BEAKER) (test azuh=504) 2.5 <=5.9 RECOMMENDED COUMADIN/WARFARIN INR THERAPY RANGESSTANDARD DOSE: 2.0 - 3.0 Includes: PROPHYLAXIS forvenous thrombosis, systemic embolization; TREATMENT for venous thrombosis and/or pulmonary embolus.HIGH RISK: Target INR is 2.5-3.5 for patients with mechanical heart valves.ALBUMIN, BODY [id number] 11:46:00 Test Item Value Reference Range Comments ALBUMIN FLUID (BEAKER) (test uuci=095) 0.5 gm/dL Reference Range: No Normals Assay performance has not been validated for this type of specimen.PROTEIN, BODY [id number] 11:42:00 Test Item Value Reference Range Comments PROTEIN FLUID (BEAKER) (test bnkq=658) 1.3 g/dL Absence of reference range indicates that normals have not been defined.Assay performance has not been validated for this type of specimen.
--- OUTSIDE RECORDS SUMMARY | 2018-12-09 00:59 | XMS REPORT ---
[...] Dosage System Date Date Ondansetron HCl [facility] 70216792450 4 MG Orally Active 1 tablet every 6 hours as needed for nausea/vo miting Results No Known Results Summary Purpose VSHOREinicalPredictvia Submission
--- OUTSIDE RECORDS SUMMARY | 2018-12-09 00:59 | XMS REPORT ---
[...] Status Dosage System Date Date Ensure High [facility] 83986407212 - Orally every Oct 19, Active drink 320 Protein 4-6 hours 2018 ml Ondansetron HCl ND 95252647667 4 MG Orally Active 1 tablet every 6 hours as needed for nausea/vo miting Results No Known Results Summary Purpose eClinicalWorks Submission
--- OUTSIDE RECORDS SUMMARY | 2018-12-09 00:59 | XMS REPORT ---
[...] with anxiety F41.8 Active Medications Medication Code System Code Instructions Start Date End Date Status Dosage Lactulose [facility] 98516415066 10 GM/15ML Orally Jun 02, Active 30 ml TID 2018 Results No Known Results Summary Purpose eClinicalWorks Submission
--- OUTSIDE RECORDS SUMMARY | 2018-12-09 00:59 | XMS REPORT ---
[...] Status Dosage System Date Date Ondansetron HCl [facility] 72825635774 4 MG Orally Active 1 tab every 8 hours as needed for Nausea and vomiting Hydrocortisone ND 81751948821 20 MG Orally AM Active 1 tablet Once a day with food or milk Magnesium Oxide ND 96574675069 400 MG Orally Active 1 tablet BID as needed Rifaximin [facility] [address]-86 550 MG Orally Active 1 tablet Twice a day Pantoprazole ND 35072114245 40 MG Orally Active 1 tablet Sodium Once a day Sodium Chloride ND 71376740030 1 GM Orally TID Active 2 tablets Lactulose ND 37357700544 10 GM/15ML Active 15 ml Orally TID Ondansetron HCl [facility] 57747043210 4 MG Active 1 TAB EVERY 8 HOURS NEEDED FOR NAUSEA AND VOMITING ORALLY 10 DAYS Citalopram [facility] 53897754609 40 MG Orally Active take one Hydrobromide once a day daily Hydrocortisone [facility] 80782111106 10 MG Orally PM Active 1 tablet Once a day with food or milk NuFera [facility] 75759341790 - Orally once a Active 1 tab day Citalopram [facility] 37756408490 10 MG Active TAKE ONE Hydrobromide DAILY Ursodiol [facility] 83537047122 300 MG Orally Active not defined Midodrine HCl [facility] 72772645357 10 MG Orally Active 1 tablet Three times a day Results No Known Results Summary Purpose eClinicalWorks Submission
--- OUTSIDE RECORDS SUMMARY | 2018-12-09 00:59 | XMS REPORT ---
[...] Dosage System Date Date Ondansetron HCl [facility] 74808923068 4 MG Orally Active 1 tab every 8 hours as needed for Nausea and vomiting Ondansetron HCl ND 29444576077 4 MG Orally Active 1 tablet every 6 hours as needed for nausea/vom iting Citalopram [facility] 72940034799 10 MG Active TAKE ONE Hydrobromide DAILY Hydrocortisone ND 18471471653 20 MG Orally AM Active 1 tablet Once a day with food or milk Lactulose [facility] 17147973959 10 GM/15ML Active 15 ml Orally TID NuFera [facility]DC 94815911735 - Orally once a Active 1 tab day Sodium Chloride [facility] 07335893364 1 GM Orally TID Active 2 tablets Ensure High [facility] 06168976971 - Orally every Oct 19, Active drink 320 Protein 4-6 hours 2018 ml Magnesium Oxide [facility] 55367601173 400 MG Orally Active 1 tablet BID as needed Hydrocortisone [facility] 94992501119 10 MG Orally PM Active 1 tablet Once a day with food or milk Ondansetron HCl [facility] 10362296218 4 MG Active 1 TAB EVERY 8 HOURS NEEDED FOR NAUSEA AND VOMITING ORALLY 10 DAYS Midodrine HCl [facility] 42312975611 10 MG Orally Active 1 tablet twice a day Ursodiol [facility] 55453228811 300 MG Orally Active not defined Rifaximin [facility] [address]-79 550 MG Orally Active 1 tablet Twice a day Citalopram [facility] 06939601903 40 MG Orally Active take one Hydrobromide once a day daily Pantoprazole [facility] 46645844234 40 MG Orally Active 1 tablet Sodium Once a day Results No Known Results Summary Purpose eClinicalWorks Submission
--- OUTSIDE RECORDS SUMMARY | 2018-12-09 00:59 | XMS REPORT ---
[...] Status Dosage System Date Date Midodrine HCl [facility] 93493298260 10 MG Orally Active 1 tablet Three times a day Pantoprazole [facility] 76721397423 40 MG Orally Active 1 tablet Sodium Once a day Sodium Chloride ND 13035937197 1 GM Orally TID Active 2 tablets Ondansetron HCl ND 54627910073 4 MG Orally Active 1 tab every 8 hours as needed for Nausea and vomiting Hydrocortisone ND 40379497500 20 MG Orally AM Active 1 tablet Once a day with food or milk Ursodiol ND 40060670842 300 MG Orally Active not defined Lactulose ND 99815253650 10 GM/15ML Active 15 ml Orally TID Citalopram [facility] 33037865248 10 MG Active TAKE ONE Hydrobromide DAILY Rifaximin [facility] [address]-06 550 MG Orally Active 1 tablet Twice a day Ondansetron HCl [facility] 67707890130 4 MG Active 1 TAB EVERY 8 HOURS NEEDED FOR NAUSEA AND VOMITING ORALLY 10 DAYS Magnesium Oxide [facility] 90834952425 400 MG Orally Active 1 tablet BID as needed NuFera [facility] 21247487614 - Orally once a Active 1 tab day Hydrocortisone [facility] 53743051212 10 MG Orally PM Active 1 tablet Once a day with food or milk Results No Known Results Summary Purpose eClinicalWorks Submission
--- NOTE | 2018-12-09 01:47 | ER ---
Nurse's Notes [facility] Name: Abhishek Davis Age: 53 yrs Sex: Male : 1965 Arrival Date: 12/09/2018 Time: 00:46 Bed 19 Private MD: Diagnosis: Encephalopathy, unspecified;Unspecified cirrhosis of liver;Weakness;Altered mental status, unspecified;Ascites;Ventral hernia without obstruction or gangrene;Anemia, unspecified;Unspecified kidney failure Presentation: 12/09 00:46 Presenting complaint: EMS states: they were toned out for report of pt having altered bb mental status pt recently discharged from hospital for elevated Ammonia level pt has hx of cirrhosis of the liver, spouse states pt has not had a bowel movement in the last two days although she has given him lactulose and milk of magnesia. Transition of care: patient was not received from another setting of care. Onset of symptoms was December 06, 2018. Risk Assessment: Do you want to hurt yourself or someone else? Unable to obtain. Initial Sepsis Screen: Does the patient meet any 2 criteria? No. Patient's initial sepsis screen is negative. Does the patient have a suspected source of infection? No. Patient's initial sepsis screen is negative. Care prior to arrival: Medication(s) given: Normal saline infusion, IV initiated. 20 GA, in the right forearm, Glucose check: 173. 00:46 Method Of Arrival: EMS: [facility] 00:46 Acuity: KACEY 2 bb Historical: - Allergies: 00:49 No Known Allergies; bb - Home Meds: 00:49 Centrum Oral daily [Active]; citalopram 10 mg tab 1 tab once daily [Active]; bb hydroxyzine HCl 25 mg Oral tab PRN [Active]; Lactulose Oral 30 mL 3 times per day [Active]; Lasix 40 mg Oral tab 1 tab once daily [Active]; mag oxide 400 mg daily [Active]; midodrine 5 mg Oral tab twice a day [Active]; ondansetron HCl 4 mg Oral tab PRN [Active]; pantoprazole 40 mg Oral TbEC 2 tabs once daily [Active]; ursodiol 300 mg Oral cap 1 cap 2 times per day [Active]; vitamin with iron daily [Active]; Xifaxan 550 mg Oral tab 1 tab 2 times per day [Active]; - PMHx: 00:49 Anemia; Cirrhosis; renal insufficiency; Umbilical hernia; bb - Immunization history:: Adult Immunizations unknown. - Social history:: Smoking status: unknown. - Ebola Screening: : No symptoms or risks identified at this time. - Family history:: not pertinent. Screenin:02 Abuse screen: Denies threats or abuse. Nutritional screening: No deficits noted. jd3 Tuberculosis screening: No symptoms or risk factors identified. Fall Risk IV access (20 points). Ambulatory Aid- None/Bed Rest/Nurse Assist (0 pts). Gait- Impaired (20 pts.). Mental Status- Overestimates/Forgets Limitations (15 pts.). Total Ty Fall Scale indicates High Risk Score (45 or more points). Fall prevention measures have been instituted. Side Rails Up X 2 Placed Close to Nursing Station Frequent Obs/Assessments Occuring Family Present and informed to notify staff if the need to leave the bedside. Assessment: 01:15 General: Appears in no apparent distress. uncomfortable, Behavior is calm, restless, jd3 uncooperative. Pain: Unable to use pain scale. does not respond to question. Neuro: Level of Consciousness is awake, confused, Oriented to none does not answer any questions. Cardiovascular: Capillary refill < 3 seconds Patient's skin is warm and dry. Rhythm is regular. Respiratory: Airway is patent Respiratory effort is even, unlabored, Respiratory pattern is regular, symmetrical. GI: Abdomen is round Parent/caregiver reports the patient having nausea. : No signs and/or symptoms were reported regarding the genitourinary system. EENT: No signs and/or symptoms were reported regarding the EENT system. Derm: Skin is intact, Skin is dry, Skin is normal, Skin temperature is warm. 02:15 Reassessment: Patient appears in no apparent distress at this time. No changes from jd3 previously documented assessment. Patient and/or family updated on plan of care and expected duration. Pain level reassessed. 03:11 Reassessment: Patient appears in no apparent distress at this time. No changes from jd3 previously documented assessment. Patient and/or family updated on plan of care and expected duration. Pain level reassessed. 04:25 Reassessment: Patient appears in no apparent distress at this time. Patient and/or jd3 family updated on plan of care and expected duration. Pain level reassessed. report given to Lavonne NÚÑEZ at [facility]. 05:06 Reassessment: Patient appears in no apparent distress at this time. Patient and/or jd3 family updated on plan of care and expected duration. Pain level reassessed. report given to EMS. Vital Signs: 00:49 BP 116 / 93; Pulse 99; Resp 16 S; Temp 98.5(O); Pulse Ox 100% on R/A; Weight 81.65 kg bb (R); Height 5 ft. 6 in. (167.64 cm) (R); Pain 0/10; 03:11 BP 127 / 98; Pulse 93; Resp 17 S; Pulse Ox 100% on R/A; jd3 04:27 BP 129 / 92; Pulse 99; Resp 18 S; Pulse Ox 100% on R/A; jd3 00:49 Body Mass Index 29.05 (81.65 kg, 167.64 cm) 00:49 FLACC scale bb ED Course: 00:46 Patient arrived in ED. bb 00:48 Stanislaw Stratton MD is Attending Physician. [facility] 00:48 Triage completed. bb 00:49 Arm band placed on Patient placed in an exam room, on a stretcher, on library monitor, bb on pulse oximetry. Family accompanied patient. 01:11 Kaveh Gimenez, RN is Primary Nurse. jd3 01:16 XRAY Chest (1 view) In Process Unspecified. EDMS 01:30 Inserted saline lock: 20 gauge in left antecubital area, using aseptic technique. Blood jd3 collected. 02:03 Patient has correct armband on for positive identification. Bed in low position. Call jd3 light in reach. Side rails up X2. Adult w/ patient. 02:16 Abdomen with Erect XRAY In Process Unspecified. EDMS 04:26 No provider procedures requiring assistance completed. Patient transferred, IV remains jd3 in place. Administered Medications: 02:17 Drug: Rocephin - (cefTRIAXone) 1 grams Route: IVPB; Infused Over: 30 mins; Site: left jd3 antecubital; 03:10 Follow up: Response: No adverse reaction; IV Status: Completed infusion jd3 03:10 Not Given (Patient Refused; pt biting down on straw and refuses to drink medication.): jd3 Lactulose 60 grams 45 ml PO once 04:07 Drug: Lactulose 60 grams {Note: given rectal per Dr. Stratton's order.} Volume: 45 ml; jd3 Route: PO; 05:07 Follow up: Response: No adverse reaction jd3 Outcome: 01:46 ER care complete, transfer ordered by MD. [place] 05:06 Transferred by ground EMS to [facility], Transfer form completed. jd3 X-rays sent w/ patient. 05:06 Condition: stable 05:06 Instructed on the need for transfer. 05:07 Patient left the ED. jd3 Signatures: Dispatcher [employer] Stanislaw Curry MD MD cha Ballard, Brenda, RN RN Kaveh Salas RN RN jd3
--- NOTE | 2018-12-09 01:48 | EDPHYS ---
Physician Documentation [facility] Name: Abhishek Davis Age: 53 yrs Sex: Male : 1965 Arrival Date: 12/09/2018 Time: 00:46 Bed 19 Private MD: ED Physician Stanislaw Stratton HPI: 12/09 01:40 This 53 yrs old Male presents to ER via EMS with complaints of Altered Mental marquise Status. 01:40 The patient presents with confusion, decreased mental status, decreased responsiveness, marquise trouble concentrating. Onset: The symptoms/episode began/occurred 3 day(s) ago. Possible causes: encephlopathy. Associated signs and symptoms: The patient has no apparent associated signs or symptoms. Current symptoms: In the emergency department the patient's symptoms are unchanged from the initial presentation. Patient's baseline: Neuro: alert and fully oriented. The patient has not experienced similar symptoms in the past. Historical: - Allergies: 00:49 No Known Allergies; bb - Home Meds: 00:49 Centrum Oral daily [Active]; citalopram 10 mg tab 1 tab once daily [Active]; bb hydroxyzine HCl 25 mg Oral tab PRN [Active]; Lactulose Oral 30 mL 3 times per day [Active]; Lasix 40 mg Oral tab 1 tab once daily [Active]; mag oxide 400 mg daily [Active]; midodrine 5 mg Oral tab twice a day [Active]; ondansetron HCl 4 mg Oral tab PRN [Active]; pantoprazole 40 mg Oral TbEC 2 tabs once daily [Active]; ursodiol 300 mg Oral cap 1 cap 2 times per day [Active]; vitamin with iron daily [Active]; Xifaxan 550 mg Oral tab 1 tab 2 times per day [Active]; - PMHx: 00:49 Anemia; Cirrhosis; renal insufficiency; Umbilical hernia; bb - Immunization history:: Adult Immunizations unknown. - Social history:: Smoking status: unknown. - Ebola Screening: : No symptoms or risks identified at this time. - Family history:: not pertinent. ROS: 01:40 Constitutional: Negative for fever, chills, and weight loss, Eyes: Negative for injury, marquise pain, redness, and discharge, ENT: Negative for injury, pain, and discharge, Neck: Negative for injury, pain, and swelling, Cardiovascular: Negative for chest pain, palpitations, and edema, Respiratory: Negative for shortness of breath, cough, wheezing, and pleuritic chest pain, Back: Negative for injury and pain, : Negative for injury, bleeding, discharge, and swelling, Psych: Negative for depression, anxiety, suicide ideation, homicidal ideation, and hallucinations, Allergy/Immunology: Negative for hives, rash, and allergies, Endocrine: Negative for neck swelling, polydipsia, polyuria, polyphagia, and marked weight changes, Hematologic/Lymphatic: Negative for swollen nodes, abnormal bleeding, and unusual bruising. 01:40 Abdomen/GI: Positive for abdominal distension. 01:40 MS/extremity: Positive for contusion, ecchymosis. 01:40 Skin: Positive for jaundice. Exam: 01:40 Constitutional: This is a well developed, well nourished patient who is awake, alert, marquise and in no acute distress. Head/Face: Normocephalic, atraumatic. ENT: Nares patent. No nasal discharge, no septal abnormalities noted. Tympanic membranes are normal and external auditory canals are clear. Oropharynx with no redness, swelling, or masses, exudates, or evidence of obstruction, uvula midline. Mucous membranes moist. Neck: Trachea midline, no thyromegaly or masses palpated, and no cervical lymphadenopathy. Supple, full range of motion without nuchal rigidity, or vertebral point tenderness. No Meningismus. Chest/axilla: Normal chest wall appearance and motion. Nontender with no deformity. No lesions are appreciated. Respiratory: Lungs have equal breath sounds bilaterally, clear to auscultation and percussion. No rales, rhonchi or wheezes noted. No increased work of breathing, no retractions or nasal flaring. Abdomen/GI: Soft, non-tender, with normal bowel sounds. No distension or tympany. No guarding or rebound. No evidence of tenderness throughout. Back: No spinal tenderness. No costovertebral tenderness. Full range of motion. Male : Normal genitalia with no discharge or lesions. MS/ Extremity: Pulses equal, no cyanosis. Neurovascular intact. Full, normal range of motion. Psych: Awake, alert, with orientation to person, place and time. Behavior, mood, and affect are within normal limits. 01:40 Eyes: Pupils: equal, round, and reactive to light and accomodation, Extraocular movements: no acute changes, Conjunctiva: no acute changes, Sclera: icterus, Anterior chamber: normal. 01:40 Cardiovascular: Rate: normal, Rhythm: regular, Pulses: Pulses are 4+ in bilateral radial, brachial, femoral, popliteal, posterior tibial and and dorsalis pedis arteries.. JVD: is not appreciated. Vital Signs: 00:49 BP 116 / 93; Pulse 99; Resp 16 S; Temp 98.5(O); Pulse Ox 100% on R/A; Weight 81.65 kg bb (R); Height 5 ft. 6 in. (167.64 cm) (R); Pain 0/10; 03:11 BP 127 / 98; Pulse 93; Resp 17 S; Pulse Ox 100% on R/A; jd3 04:27 BP 129 / 92; Pulse 99; Resp 18 S; Pulse Ox 100% on R/A; jd3 00:49 Body Mass Index 29.05 (81.65 kg, 167.64 cm) bb 00:49 FLACC scale bb MDM: 00:48 Patient medically screened. [facility] 01:40 Data reviewed: vital signs, nurses notes, lab test result(s), EKG, radiologic studies, [facility] CT scan, plain films. 02 00:50 Order name: Basic Metabolic Panel; Complete Time: 02:58 [facility] 12/09 00:50 Order name: CBC with Diff [facility] 12/09 00:50 Order name: LFT's; Complete Time: 02:58 [facility] 12/09 00:50 Order name: Magnesium; Complete Time: 02:58 [facility] 12/09 00:50 Order name: NT PRO-BNP; Complete Time: 02:58 [facility] 12/09 00:50 Order name: PT-INR; Complete Time: 02:58 [facility] 12/09 00:50 Order name: Troponin (emerg Dept Use Only); Complete Time: 02:58 [facility] 12/09 00:50 Order name: XRAY Chest (1 view) [facility] 12/09 00:50 Order name: Blood Culture Adult (2) [facility] 12/09 00:50 Order name: AMMONIA; Complete Time: 02:58 [facility] 12/09 00:50 Order name: Urine Culture [facility] 12/09 00:50 Order name: Lipase; Complete Time: 02:58 [facility] 12/09 02:34 Order name: CBC Smear Scan EDMS 12/09 04:14 Order name: Urine Dipstick--Ancillary (enter results) ms 12/09 00:50 Order name: Cardiac monitoring; Complete Time: 02:07 [facility] 12/09 00:50 Order name: EKG - Nurse/Tech; Complete Time: 02:07 [facility] 12/09 00:50 Order name: IV Saline Lock; Complete Time: 01:40 [facility] 12/09 00:50 Order name: Labs collected and sent; Complete Time: 01:40 [facility] 12/09 00:50 Order name: O2 Per Protocol; Complete Time: 01:41 [facility] 12/09 00:50 Order name: O2 Sat Monitoring; Complete Time: 01:41 [facility] 12/09 00:50 Order name: Urine Dipstick-Ancillary (obtain specimen); Complete Time: 04:07 [facility] 12/09 01:36 Order name: Abdomen with Erect XRAY [facility] Administered Medications: 02:17 Drug: Rocephin - (cefTRIAXone) 1 grams Route: IVPB; Infused Over: 30 mins; Site: left jd3 antecubital; 03:10 Follow up: Response: No adverse reaction; IV Status: Completed infusion jd3 03:10 Not Given (Patient Refused; pt biting down on straw and refuses to drink medication.): jd3 Lactulose 60 grams 45 ml PO once 04:07 Drug: Lactulose 60 grams {Note: given rectal per Dr. Stratton's order.} Volume: 45 ml; jd3 Route: PO; 05:07 Follow up: Response: No adverse reaction jd3 Disposition: 12/09/18 01:46 Transfer ordered to [facility]. Diagnosis are Encephalopathy, unspecified, Unspecified cirrhosis of liver, Weakness, Altered mental status, unspecified, Ascites, Ventral hernia without obstruction or gangrene, Anemia, unspecified, Unspecified kidney failure. - Reason for transfer: Higher level of care. - Accepting physician is to [facility] [address], liver team. - Condition is Stable. - Problem is new. - Symptoms have improved. Signatures: Dispatcher [employer] Stanislaw Curry MD MD cha Ballard, Brenda, RN RN Kaveh Salas RN RN jd3 Corrections: (The following items were deleted from the chart) 02:59 01:46 12/09/2018 01:46 Transfer ordered to [facility]. Diagnosis is marquise Encephalopathy, unspecified; Unspecified cirrhosis of liver; Weakness; Altered mental status, unspecified; Ascites; Ventral hernia without obstruction or gangrene. Reason for transfer: Higher level of care. Accepting physician is to [facility] [address], liver team. Condition is Stable. Problem is new. Symptoms have improved. marquise 05:07 02:59 12/09/2018 01:46 Transfer ordered to [facility]. Diagnosis is jd3 Encephalopathy, unspecified; Unspecified cirrhosis of liver; Weakness; Altered mental status, unspecified; Ascites; Ventral hernia without obstruction or gangrene; Anemia, unspecified; Unspecified kidney failure. Reason for transfer: Higher level of care. Accepting physician is to [facility] [address], liver team. Condition is Stable. Problem is new. Symptoms have improved. marquise
[2018-12-09] MEDS ORDERED: LACTULOSE 20 GM/30 ML UCUP ONE (01:54)
[2018-12-09 02:12] LABS: Absolute Lymphocytes (CBC) 0.3 K/uL (0.7-4.9); Absolute Monocytes 0.5 K/uL (0.1-1.3); Absolute Neutrophil 3.3 K/uL (1.8-8.0); Basophils % 0.2 % (0-1.3); Eosinophils % 0.8 % (0-4.4); Hematocrit 31.1 % (39.6-49.0); Lymphocytes % 6.7 % (15.3-44.8); Monocytes % 11.1 % (3.3-12.3)
[2018-12-09 02:14] LABS: Protime INR 1.62
[2018-12-09] MEDS ORDERED: CEFTRIAXONE/SWI 1gm 1 GM/10 ML SYR ONE (02:20)
[2018-12-09 02:27] LABS: ALT/SGPT 25 U/L (12-78); AST/SGOT 22 U/L (15-37); Albumin 3.7 g/dL (3.4-5.0); Alkaline Phosphatase 183 U/L (45-117); BUN Blood Urea Nitrogen 49 mg/dL (7-18); Bicarbonate 25 mmol/L (21-32); Bilirubin Direct 1.2 mg/dL (0-0.2); Bilirubin Total 2.7 mg/dL (0.2-1.0); Glucose Level 182 mg/dL (74-106); Lipase 322 U/L (73-393); Magnesium 2.7 mg/dL (1.8-2.4); NT PRO-BNP 888 pg/mL (<125); Potassium 4.5 mmol/L (3.5-5.1); Protein, Total 6.4 g/dL (6.4-8.2); Sodium Level 135 mmol/L (136-145); Troponin (Emerg Dept Use Only) < 0.02 ng/mL (0.0-0.045)
[2018-12-09 04:10] LABS: Anisocytosis 1+; Blood Morphology Comment NOTED (NOT SEEN); Ovalocytes 1+; Platelet Estimate DECR; Urine White Blood Cell Casts OK
[2018-12-09 04:18] LABS: Urine Blood 2+ (NEG); Urine Glucose NEGATIVE (NEG); Urine Protein NEGATIVE (NEG); Urine Specific Gravity 1.015 (1.005-1.030); Urine pH 6.5 (5.0-7.0)
[2018-12-09 05:20] VITALS: TEMP 98.5; O2SAT 100
[2018-12-09 05:23] VITALS: BP 129/92
--- NOTE | 2018-12-09 08:13 | RAD REPORT ---
EXAM DESCRIPTION: Elizabeth Single View12/09/2018 1:15 am CLINICAL HISTORY: Cough COMPARISON: December 03, 2018 FINDINGS: Patient is in a poor degree of inspiration. The lungs appear clear of acute infiltrate. The heart is normal size
--- NOTE | 2018-12-09 08:15 | RAD REPORT ---
EXAM DESCRIPTION: RAD - Abdomen W Erect - 12/09/2018 2:15 am CLINICAL HISTORY: Abdominal pain FINDINGS: The bowel gas pattern is unremarkable without evidence of obstruction Cement has been placed into the lumbar spine for prior fractures
== END 2018-12-09 05:07 | disposition short-term general hospital (02) ==
LOC: ER 00:36
DX: G93.40 Encephalopathy, unspecified (principal); K74.60 Unspecified cirrhosis of liver; R53.1 Weakness; R41.82 Altered mental status, unspecified; D64.9 Anemia, unspecified; N28.9 Disorder of kidney and ureter, unspecified
CPT/HCPCS: 36415; 71045; 74019; 80048; 80076; 81003; 82140; 83690; 83735; 83880; 84484; 85025; 85610; 87040; 87086; 87088; 96365; 99285; J0696

== ENCOUNTER 2018-12-17 00:41 | Inpatient (IN) | payer MEDICAID ==
--- OUTSIDE RECORDS SUMMARY | 2018-12-17 01:05 | XMS REPORT ---
:1965 [facility] [place] [address] [place] [id number] Care Team Providers Name Role Phone STEPHONPEG SinhaCRISSBETSY MAYES Unavailable Unavailable BRANNON BONILLA Unavailable Unavailable INGRID JUNIOR Unavailable [...] Comments Text Results Atomic Results Result Comments BLOOD CULTURE 2018-12-14 19:00:00 Test Item Value Reference Range Comments CULTURE (BEAKER) (test nbbp=4900) No growth in 5 days BLOOD [id number] 19:00:00 Test Item Value Reference Range Comments CULTURE (BEAKER) (test mfbn=8031) No growth in 5 days MISCELLANEOUS LAB [id number] 09:42:00 Test Item Value Reference Range Comments SCAN RESULT (test wvui=[id number]) [id number] 07:24:00 Test Item Value Reference Range Comments MAGNESIUM (BEAKER) (test ldiy=835) 2.2 mg/dL 1.6-2.6 BASIC METABOLIC [id number] 07:24:00 Test Item Value Reference Range Comments SODIUM (BEAKER) (test 130 meq/L 136-145 elml=857) POTASSIUM (BEAKER) (test 4.0 meq/L 3.5-5.1 dhiq=698) CHLORIDE (BEAKER) (test 102 meq/L 98-107 pxdx=816) CO2 (BEAKER) (test 22 meq/L 22-29 shwc=658) BLOOD UREA NITROGEN 45 mg/dL 7-21 (BEAKER) (test cdwk=531) CREATININE (BEAKER) (test 1.42 mg/dL 0.57-1.25 hmae=134) GLUCOSE RANDOM (BEAKER) 138 mg/dL 70-105 (test wnac=061) CALCIUM (BEAKER) (test 10.0 mg/dL 8.4-10.2 zkiy=365) EGFR (BEAKER) (test 52 mL/min/1.73 sq m ESTIMATED GFR IS NOT jyfy=1806) ACCURATE CREATININE CLEARANCE IN PREDICTING GLOMERULAR FILTRATION RATE. ESTIMATED GFR IS NOT APPLICABLE FOR DIALYSIS PATIENTS. HEPATIC FUNCTION [id number] 07:24:00 Test Item Value Reference Range Comments TOTAL PROTEIN (BEAKER) (test rdmq=421) 5.3 gm/dL 6.0-8.3 ALBUMIN (BEAKER) (test ibuc=2242) 3.3 g/dL 3.5-5.0 BILIRUBIN TOTAL (BEAKER) (test kaek=323) 1.9 mg/dL 0.2-1.2 BILIRUBIN DIRECT (BEAKER) (test ejej=291) 1.2 mg/dL 0.1-0.5 ALKALINE PHOSPHATASE (BEAKER) (test ycpm=909) 130 U/L 40-150 AST (SGOT) (BEAKER) (test bbtm=946) 18 U/L 5-34 ALT (SGPT) (BEAKER) (test zyfr=200) 16 U/L 6-55 CBC W/PLT COUNT & AUTO [id number] 07:13:00 Test Item Value Reference Range Comments WHITE BLOOD CELL COUNT (BEAKER) (test ojbd=497) 5.9 K/ L 3.5-10.5 RED BLOOD CELL COUNT (BEAKER) (test qtrm=069) 2.59 M/ L 4.63-6.08 HEMOGLOBIN (BEAKER) (test elfu=942) 8.6 GM/DL 13.7-17.5 HEMATOCRIT (BEAKER) (test jtoh=435) 25.2 % 40.1-51.0 MEAN CORPUSCULAR VOLUME (BEAKER) (test qhsi=665) 97.3 fL 79.0-92.2 MEAN CORPUSCULAR HEMOGLOBIN (BEAKER) (test 33.2 pg 25.7-32.2 wcfn=809) MEAN CORPUSCULAR HEMOGLOBIN CONC (BEAKER) (test 34.1 GM/DL 32.3-36.5 swzl=284) RED CELL DISTRIBUTION WIDTH (BEAKER) (test 18.7 % 11.6-14.4 ziol=412) PLATELET COUNT (BEAKER) (test sxhk=981) 44 K/CU MM 150-450 MEAN PLATELET VOLUME (BEAKER) (test lfqo=748) 9.6 fL 9.4-12.4 NUCLEATED RED BLOOD CELLS (BEAKER) (test 0 /100 WBC 0-0 ndtn=881) NEUTROPHILS RELATIVE PERCENT (BEAKER) (test 82 % qtvn=645) LYMPHOCYTES RELATIVE PERCENT (BEAKER) (test 6 % sutl=499) MONOCYTES RELATIVE PERCENT (BEAKER) (test 12 % dgez=943) EOSINOPHILS RELATIVE PERCENT (BEAKER) (test 0 % dyxn=232) BASOPHILS RELATIVE PERCENT (BEAKER) (test 0 % eazr=941) NEUTROPHILS ABSOLUTE COUNT (BEAKER) (test 4.79 K/ L 1.78-5.38 vzks=610) LYMPHOCYTES ABSOLUTE COUNT (BEAKER) (test 0.36 K/ L 1.32-3.57 ucob=907) MONOCYTES ABSOLUTE COUNT (BEAKER) (test iicg=238) 0.70 K/ L 0.30-0.82 EOSINOPHILS ABSOLUTE COUNT (BEAKER) (test 0.00 K/ L 0.04-0.54 sonb=731) BASOPHILS ABSOLUTE COUNT (BEAKER) (test rabz=658) 0.00 K/ L 0.01-0.08 IMMATURE GRANULOCYTES-RELATIVE PERCENT (BEAKER) 1 % 0-1 (test urlk=2181) PROTHROMBIN [id number] 07:10:00 Test Item Value Reference Range Comments PROTIME (BEAKER) (test slrw=897) 22.0 seconds 11.7-14.7 INR (BEAKER) (test xphd=484) 1.9 <=5.9 RECOMMENDED COUMADIN/WARFARIN INR THERAPY RANGESSTANDARD DOSE: 2.0 - 3.0 Includes: PROPHYLAXIS forvenous thrombosis, systemic embolization; TREATMENT for venous thrombosis and/or pulmonary embolus.HIGH RISK: Target INR is 2.5-3.5 for patients with mechanical heart valves.POCT-GLUCOSE [id number] 12:46:00 Test Item Value Reference Range Comments POC-GLUCOSE METER (BEAKER) 192 mg/dL 70-110 TESTED AT [facility] [address] [facility] (test tthz=8765) [facility] [address] BODY FLUID CELL COUNT WITH [id number] 11:54:00 Test Item Value Reference Range Comments APPEARANCE FLUID (BEAKER) (test thjx=539) Hazy Clear COLOR FLUID (BEAKER) (test wcoz=684) Yellow Colorless, Straw RBC FLUID (BEAKER) (test zflv=718) 11 /cu mm <=1 ADJUSTED WBC FLUID (BEAKER) (test ltmg=7985) 4 /cu mm <=5 LINING CELLS (BEAKER) (test sgso=8491) 0 /cu mm <=1 NEUTROPHILS FLUID (BEAKER) (test watj=4627) 0 % LYMPHS FLUID (BEAKER) (test qyrq=936) 65 % MONO/MACROPHAGE FLUID (BEAKER) (test ewvn=254) 35 % EOSINOPHILS FLUID (BEAKER) (test mdqs=339) 0 % BASO FLUID (BEAKER) (test rcyu=814) 0 % CONTAINER BODY FLUID (BEAKER) (test ezbb=1101) EDTA Tube ALPHA FETOPROTEIN (AFP), TUMOR [id number] 06:46:00 Test Item Value Reference Range Comments ALPHA-FETOPROTEIN (BEAKER) (test pvyq=5193) < ng/mL <10.0 [id number] 06:29:00 Test Item Value Reference Range Comments MAGNESIUM (BEAKER) (test spdt=594) 2.4 mg/dL 1.6-2.6 BASIC METABOLIC [id number] 06:29:00 Test Item Value Reference Range Comments SODIUM (BEAKER) (test 134 meq/L 136-145 srij=930) POTASSIUM (BEAKER) (test 4.2 meq/L 3.5-5.1 pbwy=995) CHLORIDE (BEAKER) (test 105 meq/L 98-107 uhgu=740) CO2 (BEAKER) (test 23 meq/L 22-29 otxg=128) BLOOD UREA NITROGEN 44 mg/dL 7-21 (BEAKER) (test ayfx=183) CREATININE (BEAKER) (test 1.49 mg/dL 0.57-1.25 rvli=813) GLUCOSE RANDOM (BEAKER) 167 mg/dL 70-105 (test vxvi=361) CALCIUM (BEAKER) (test 10.0 mg/dL 8.4-10.2 cavg=278) EGFR (BEAKER) (test 49 mL/min/1.73 sq m ESTIMATED GFR IS NOT bsit=3038) ACCURATE CREATININE CLEARANCE IN PREDICTING GLOMERULAR FILTRATION RATE. ESTIMATED GFR IS NOT APPLICABLE FOR DIALYSIS PATIENTS. Specimen slightly ictericHEPATIC FUNCTION [id number] 06:29:00 Test Item Value Reference Range Comments TOTAL PROTEIN (BEAKER) (test dbxd=754) 5.6 gm/dL 6.0-8.3 ALBUMIN (BEAKER) (test ulmq=1255) 3.6 g/dL 3.5-5.0 BILIRUBIN TOTAL (BEAKER) (test iyla=168) 2.4 mg/dL 0.2-1.2 BILIRUBIN DIRECT (BEAKER) (test jbaw=874) 1.3 mg/dL 0.1-0.5 ALKALINE PHOSPHATASE (BEAKER) (test asfm=921) 119 U/L 40-150 AST (SGOT) (BEAKER) (test kqnq=164) 16 U/L 5-34 ALT (SGPT) (BEAKER) (test iysd=275) 15 U/L 6-55 Specimen slightly ictericPROTHROMBIN [id number] 06:23:00 Test Item Value Reference Range Comments PROTIME (BEAKER) (test swmt=055) 21.8 seconds 11.7-14.7 INR (BEAKER) (test qvqs=174) 1.9 <=5.9 RECOMMENDED COUMADIN/WARFARIN INR THERAPY RANGESSTANDARD DOSE: 2.0 - 3.0 Includes: PROPHYLAXIS forvenous thrombosis, systemic embolization; TREATMENT for venous thrombosis and/or pulmonary embolus.HIGH RISK: Target INR is 2.5-3.5 for patients with mechanical heart valves.CBC W/PLT COUNT & AUTO [id number] 06:11:00 Test Item Value Reference Range Comments WHITE BLOOD CELL COUNT (BEAKER) (test yine=466) 4.0 K/ L 3.5-10.5 RED BLOOD CELL COUNT (BEAKER) (test lpdj=062) 2.56 M/ L 4.63-6.08 HEMOGLOBIN (BEAKER) (test euue=995) 8.4 GM/DL 13.7-17.5 HEMATOCRIT (BEAKER) (test euij=866) 25.2 % 40.1-51.0 MEAN CORPUSCULAR VOLUME (BEAKER) (test izwu=398) 98.4 fL 79.0-92.2 MEAN CORPUSCULAR HEMOGLOBIN (BEAKER) (test 32.8 pg 25.7-32.2 wsyi=441) MEAN CORPUSCULAR HEMOGLOBIN CONC (BEAKER) (test 33.3 GM/DL 32.3-36.5 bnyd=353) RED CELL DISTRIBUTION WIDTH (BEAKER) (test 19.4 % 11.6-14.4 ctdl=770) PLATELET COUNT (BEAKER) (test vtwk=223) 45 K/CU MM 150-450 MEAN PLATELET VOLUME (BEAKER) (test fgle=411) 10.0 fL 9.4-12.4 NUCLEATED RED BLOOD CELLS (BEAKER) (test 0 /100 WBC 0-0 xfqw=152) NEUTROPHILS RELATIVE PERCENT (BEAKER) (test 80 % exdi=996) LYMPHOCYTES RELATIVE PERCENT (BEAKER) (test 7 % wrln=823) MONOCYTES RELATIVE PERCENT (BEAKER) (test 13 % kqpq=501) EOSINOPHILS RELATIVE PERCENT (BEAKER) (test 1 % hazw=799) BASOPHILS RELATIVE PERCENT (BEAKER) (test 0 % fhge=932) NEUTROPHILS ABSOLUTE COUNT (BEAKER) (test 3.20 K/ L 1.78-5.38 qjcr=575) LYMPHOCYTES ABSOLUTE COUNT (BEAKER) (test 0.28 K/ L 1.32-3.57 kmqs=870) MONOCYTES ABSOLUTE COUNT (BEAKER) (test arkm=229) 0.50 K/ L 0.30-0.82 EOSINOPHILS ABSOLUTE COUNT (BEAKER) (test 0.02 K/ L 0.04-0.54 wdpu=312) BASOPHILS ABSOLUTE COUNT (BEAKER) (test llpw=341) 0.00 K/ L 0.01-0.08 IMMATURE GRANULOCYTES-RELATIVE PERCENT (BEAKER) 0 % 0-1 (test tflg=4447) U/S, [id number] 18:07:00Reason for exam:->Ascites with prior SBP now with encephalopathyFINAL REPORT PROCEDURE: Ultrasound -guided paracentesis. INDICATION: Ascites with prior SBP now with encephalopathy. DESCRIPTION: After obtaining informed written consent, ultrasound scan of the abdomen identified ascites in the left lower quadrant. The overlying skin was preppedand draped in the usual, sterile fashion and local 1% lidocaine anesthesia was administered. A 5 [place] catheter was advanced into the peritoneal cavity and 9000 mL of cloudy yellow fluid was removed. The catheter was removed without immediate complication. Samples were sent for analysis. IMPRESSION:Uncomplicated ultrasound-guided paracentesis with 9000 mL of fluid removed. Signed: Stuart Dupree MDReport Verified Date/Time: 12/10 18:07:28 Reading Location: [facility] [id number] Ultrasound Reading Room HEPATIC FUNCTION [id number] 10:34:00 Test Item Value Reference Range Comments TOTAL PROTEIN (BEAKER) (test 5.5 gm/dL 6.0-8.3 Specimen slightly hemolyzed fypu=857) ALBUMIN (BEAKER) (test 3.2 g/dL 3.5-5.0 Specimen slightly hemolyzed gswn=0078) BILIRUBIN TOTAL (BEAKER) (test 2.7 mg/dL 0.2-1.2 Specimen slightly hemolyzed yauu=762) BILIRUBIN DIRECT (BEAKER) (test 1.1 mg/dL 0.1-0.5 Specimen slightly hemolyzed ojwx=251) ALKALINE PHOSPHATASE (BEAKER) 128 U/L 40-150 (test rkkp=838) AST (SGOT) (BEAKER) (test 28 U/L 5-34 Specimen slightly hemolyzed eisz=284) ALT (SGPT) (BEAKER) (test 19 U/L 6-55 Specimen slightly hemolyzed rvlb=095) Specimen slightly [id number] 07:02:00 Test Item Value Reference Range Comments MAGNESIUM (BEAKER) (test 2.6 mg/dL 1.6-2.6 Specimen slightly hemolyzed cbxm=722) BASIC METABOLIC [id number] 07:02:00 Test Item Value Reference Range Comments SODIUM (BEAKER) (test 134 meq/L 136-145 qoqv=322) POTASSIUM (BEAKER) (test 4.8 meq/L 3.5-5.1 Specimen slightly ldry=190) hemolyzed CHLORIDE (BEAKER) (test 105 meq/L 98-107 syth=216) CO2 (BEAKER) (test 24 meq/L 22-29 duew=939) BLOOD UREA NITROGEN 45 mg/dL 7-21 (BEAKER) (test qxwn=791) CREATININE (BEAKER) (test 1.39 mg/dL 0.57-1.25 Specimen slightly syxl=727) hemolyzed GLUCOSE RANDOM (BEAKER) 134 mg/dL 70-105 (test cgdw=537) CALCIUM (BEAKER) (test 9.7 mg/dL 8.4-10.2 srst=281) EGFR (BEAKER) (test 53 mL/min/1.73 sq m ESTIMATED GFR IS NOT xsls=4415) ACCURATE CREATININE CLEARANCE IN PREDICTING GLOMERULAR FILTRATION RATE. ESTIMATED GFR IS NOT APPLICABLE FOR DIALYSIS PATIENTS. Specimen slightly ictericPT/[id number] 06:53:00 Test Item Value Reference Range Comments PROTIME (BEAKER) (test eoxv=946) 19.7 seconds 11.7-14.7 INR (BEAKER) (test selt=082) 1.7 <=5.9 PARTIAL THROMBOPLASTIN TIME (BEAKER) (test 39.1 seconds 22.5-36.0 kuql=462) RECOMMENDED COUMADIN/WARFARIN INR THERAPY RANGESSTANDARD DOSE: 2.0 - 3.0 Includes: PROPHYLAXIS forvenous thrombosis, systemic embolization; TREATMENT for venous thrombosis and/or pulmonary embolus.HIGH RISK: Target INR is 2.5-3.5 for patients with mechanical heart valves.CBC W/PLT COUNT & AUTO [id number] 06:44:00 Test Item Value Reference Range Comments WHITE BLOOD CELL COUNT (BEAKER) (test wirx=064) 4.2 K/ L 3.5-10.5 RED BLOOD CELL COUNT (BEAKER) (test uqaq=325) 2.73 M/ L 4.63-6.08 HEMOGLOBIN (BEAKER) (test oxsd=163) 9.0 GM/DL 13.7-17.5 HEMATOCRIT (BEAKER) (test tzbt=654) 27.0 % 40.1-51.0 MEAN CORPUSCULAR VOLUME (BEAKER) (test fcjm=740) 98.9 fL 79.0-92.2 MEAN CORPUSCULAR HEMOGLOBIN (BEAKER) (test 33.0 pg 25.7-32.2 slkw=648) MEAN CORPUSCULAR HEMOGLOBIN CONC (BEAKER) (test 33.3 GM/DL 32.3-36.5 swjw=692) RED CELL DISTRIBUTION WIDTH (BEAKER) (test 19.8 % 11.6-14.4 gnxy=146) PLATELET COUNT (BEAKER) (test yjqp=709) 48 K/CU MM 150-450 MEAN PLATELET VOLUME (BEAKER) (test utcp=743) 8.9 fL 9.4-12.4 NUCLEATED RED BLOOD CELLS (BEAKER) (test 0 /100 WBC 0-0 rfvi=709) NEUTROPHILS RELATIVE PERCENT (BEAKER) (test 75 % xair=546) LYMPHOCYTES RELATIVE PERCENT (BEAKER) (test 8 % roft=311) MONOCYTES RELATIVE PERCENT (BEAKER) (test 15 % oypz=751) EOSINOPHILS RELATIVE PERCENT (BEAKER) (test 1 % fmkr=388) BASOPHILS RELATIVE PERCENT (BEAKER) (test 0 % jdqp=358) NEUTROPHILS ABSOLUTE COUNT (BEAKER) (test 3.15 K/ L 1.78-5.38 zdvk=476) LYMPHOCYTES ABSOLUTE COUNT (BEAKER) (test 0.35 K/ L 1.32-3.57 vfrf=098) MONOCYTES ABSOLUTE COUNT (BEAKER) (test fzvh=460) 0.65 K/ L 0.30-0.82 EOSINOPHILS ABSOLUTE COUNT (BEAKER) (test 0.04 K/ L 0.04-0.54 gmuz=444) BASOPHILS ABSOLUTE COUNT (BEAKER) (test rykf=383) 0.00 K/ L 0.01-0.08 IMMATURE GRANULOCYTES-RELATIVE PERCENT (BEAKER) 1 % 0-1 (test slyz=2855) COMPREHENSIVE METABOLIC [id number] 13:28:00 Test Item Value Reference Range Comments TOTAL PROTEIN (BEAKER) 5.9 gm/dL 6.0-8.3 (test xtzy=530) ALBUMIN (BEAKER) (test 3.5 g/dL 3.5-5.0 iylt=4441) ALKALINE PHOSPHATASE 146 U/L 40-150 (BEAKER) (test jryu=905) BILIRUBIN TOTAL (BEAKER) 3.6 mg/dL 0.2-1.2 (test ffqf=559) SODIUM (BEAKER) (test 132 meq/L 136-145 cjtp=387) POTASSIUM (BEAKER) (test 4.5 meq/L 3.5-5.1 tmsi=383) CHLORIDE (BEAKER) (test 102 meq/L 98-107 jvci=582) CO2 (BEAKER) (test 24 meq/L 22-29 fvmu=358) BLOOD UREA NITROGEN 47 mg/dL 7-21 (BEAKER) (test lgle=182) CREATININE (BEAKER) (test 1.45 mg/dL 0.57-1.25 zabe=018) GLUCOSE RANDOM (BEAKER) 113 mg/dL 70-105 (test chlg=197) CALCIUM (BEAKER) (test 10.1 mg/dL 8.4-10.2 cajj=598) AST (SGOT) (BEAKER) (test 23 U/L 5-34 mzrm=854) ALT (SGPT) (BEAKER) (test 18 U/L 6-55 wypn=533) EGFR (BEAKER) (test 51 mL/min/1.73 sq m ESTIMATED GFR IS NOT zyzj=8268) ACCURATE CREATININE CLEARANCE IN PREDICTING GLOMERULAR FILTRATION RATE. ESTIMATED GFR IS NOT APPLICABLE FOR DIALYSIS PATIENTS. Specimen moderately ictericCBC W/PLT COUNT & AUTO [id number] 13: 11:00 Test Item Value Reference Range Comments WHITE BLOOD CELL COUNT (BEAKER) (test qrzs=274) 4.3 K/ L 3.5-10.5 RED BLOOD CELL COUNT (BEAKER) (test oqsz=699) 2.98 M/ L 4.63-6.08 HEMOGLOBIN (BEAKER) (test ebrw=417) 9.7 GM/DL 13.7-17.5 HEMATOCRIT (BEAKER) (test buka=617) 29.0 % 40.1-51.0 MEAN CORPUSCULAR VOLUME (BEAKER) (test arvp=677) 97.3 fL 79.0-92.2 MEAN CORPUSCULAR HEMOGLOBIN (BEAKER) (test 32.6 pg 25.7-32.2 wpow=954) MEAN CORPUSCULAR HEMOGLOBIN CONC (BEAKER) (test 33.4 GM/DL 32.3-36.5 syaw=000) RED CELL DISTRIBUTION WIDTH (BEAKER) (test 19.9 % 11.6-14.4 dxny=459) PLATELET COUNT (BEAKER) (test aomb=393) 49 K/CU MM 150-450 MEAN PLATELET VOLUME (BEAKER) (test hwvd=966) 9.6 fL 9.4-12.4 NUCLEATED RED BLOOD CELLS (BEAKER) (test 0 /100 WBC 0-0 ocdm=541) NEUTROPHILS RELATIVE PERCENT (BEAKER) (test 74 % hmmp=706) LYMPHOCYTES RELATIVE PERCENT (BEAKER) (test 9 % azsf=815) MONOCYTES RELATIVE PERCENT (BEAKER) (test 13 % ushs=579) EOSINOPHILS RELATIVE PERCENT (BEAKER) (test 3 % jopi=532) BASOPHILS RELATIVE PERCENT (BEAKER) (test 0 % pzwx=507) NEUTROPHILS ABSOLUTE COUNT (BEAKER) (test 3.18 K/ L 1.78-5.38 jhnh=879) LYMPHOCYTES ABSOLUTE COUNT (BEAKER) (test 0.40 K/ L 1.32-3.57 iesc=478) MONOCYTES ABSOLUTE COUNT (BEAKER) (test pdbg=056) 0.55 K/ L 0.30-0.82 EOSINOPHILS ABSOLUTE COUNT (BEAKER) (test 0.13 K/ L 0.04-0.54 jxhy=841) BASOPHILS ABSOLUTE COUNT (BEAKER) (test fppj=182) 0.01 K/ L 0.01-0.08 IMMATURE GRANULOCYTES-RELATIVE PERCENT (BEAKER) 0 % 0-1 (test afjq=4841) URINALYSIS W/ REFLEX URINE [id number] 12:06:00 Test Item Value Reference Range Comments COLOR (BEAKER) (test qxfb=929) Yellow CLARITY (BEAKER) (test woea=019) Clear SPECIFIC GRAVITY UA (BEAKER) (test vpwh=966) 1.018 1.001-1.035 PH UA (BEAKER) (test kshg=666) 6.0 5.0-8.0 PROTEIN UA (BEAKER) (test ibuh=523) Negative Negative GLUCOSE UA (BEAKER) (test oitm=992) Negative Negative KETONES UA (BEAKER) (test iqkm=247) Negative Negative BILIRUBIN UA (BEAKER) (test afbs=938) Negative Negative BLOOD UA (BEAKER) (test fvvl=305) Small Negative NITRITE UA (BEAKER) (test bige=316) Negative Negative LEUKOCYTE ESTERASE UA (BEAKER) (test gjzh=344) Negative Negative UROBILINOGEN UA (BEAKER) (test tfot=734) 0.2 mg/dL 0.2-1.0 RBC UA (BEAKER) (test fwfi=678) 1 /HPF WBC UA (BEAKER) (test uucv=884) 7 /HPF SOURCE(BEAKER) (test awlc=6430) BODY FLUID CULTURE + GRAM [id number] 11:04:00 Test Item Value Reference Range Comments CULTURE (BEAKER) (test thxy=7707) No growth GRAM STAIN RESULT (BEAKER) (test <1+ WBCs pcqi=5243) GRAM STAIN RESULT (BEAKER) (test No organisms seen jlug=58822) POCT-GLUCOSE [id number] 11:52:00 Test Item Value Reference Range Comments POC-GLUCOSE METER (BEAKER) 224 mg/dL 70-110 TESTED AT [place] [id number] (test eaac=6298) [facility] [address] POCT-GLUCOSE [id number] 08:27:00 Test Item Value Reference Range Comments POC-GLUCOSE METER (BEAKER) 159 mg/dL 70-110 TESTED AT [address] (test bmun=8565) [facility] [address] CBC W/PLT COUNT & AUTO [id number] 06:22:00 Test Item Value Reference Range Comments WHITE BLOOD CELL COUNT (BEAKER) (test effs=676) 5.7 K/ L 3.5-10.5 RED BLOOD CELL COUNT (BEAKER) (test czil=991) 2.69 M/ L 4.63-6.08 HEMOGLOBIN (BEAKER) (test bgfn=183) 8.7 GM/DL 13.7-17.5 HEMATOCRIT (BEAKER) (test xwwd=224) 25.4 % 40.1-51.0 MEAN CORPUSCULAR VOLUME (BEAKER) (test dszl=908) 94.4 fL 79.0-92.2 MEAN CORPUSCULAR HEMOGLOBIN (BEAKER) (test 32.3 pg 25.7-32.2 wrmp=462) MEAN CORPUSCULAR HEMOGLOBIN CONC (BEAKER) (test 34.3 GM/DL 32.3-36.5 njvk=168) RED CELL DISTRIBUTION WIDTH (BEAKER) (test 16.8 % 11.6-14.4 ovem=541) PLATELET COUNT (BEAKER) (test xacc=586) 43 K/CU MM 150-450 MEAN PLATELET VOLUME (BEAKER) (test ucbq=333) 10.6 fL 9.4-12.4 NUCLEATED RED BLOOD CELLS (BEAKER) (test 0 /100 WBC 0-0 kvdr=711) NEUTROPHILS RELATIVE PERCENT (BEAKER) (test 82 % ymxb=982) LYMPHOCYTES RELATIVE PERCENT (BEAKER) (test 7 % yzvj=522) MONOCYTES RELATIVE PERCENT (BEAKER) (test 9 % lkel=939) EOSINOPHILS RELATIVE PERCENT (BEAKER) (test 0 % nklz=144) BASOPHILS RELATIVE PERCENT (BEAKER) (test 0 % gzqf=326) NEUTROPHILS ABSOLUTE COUNT (BEAKER) (test 4.65 K/ L 1.78-5.38 hlsl=986) LYMPHOCYTES ABSOLUTE COUNT (BEAKER) (test 0.38 K/ L 1.32-3.57 gtvh=354) MONOCYTES ABSOLUTE COUNT (BEAKER) (test hnhc=933) 0.53 K/ L 0.30-0.82 EOSINOPHILS ABSOLUTE COUNT (BEAKER) (test 0.01 K/ L 0.04-0.54 wvcr=827) BASOPHILS ABSOLUTE COUNT (BEAKER) (test xvau=224) 0.01 K/ L 0.01-0.08 IMMATURE GRANULOCYTES-RELATIVE PERCENT (BEAKER) 1 % 0-1 (test rgcz=4803) B-TYPE NATRIURETIC FACTOR (BNP)2018-11-20 06:16:00 Test Item Value Reference Range Comments B-TYPE NATRIURETIC PEPTIDE (BEAKER) (test 2158 pg/mL 0-100 nxic=950) [id number] 06:15:00 Test Item Value Reference Range Comments PHOSPHORUS (BEAKER) (test qagb=735) 2.5 mg/dL 2.3-4.7 [id number] 06:15:00 Test Item Value Reference Range Comments MAGNESIUM (BEAKER) (test mgqo=865) 1.8 mg/dL 1.6-2.6 COMPREHENSIVE METABOLIC [id number] 06:15:00 Test Item Value Reference Range Comments TOTAL PROTEIN (BEAKER) 5.4 gm/dL 6.0-8.3 (test bjyp=452) ALBUMIN (BEAKER) (test 4.1 g/dL 3.5-5.0 emkt=4994) ALKALINE PHOSPHATASE 63 U/L 40-150 (BEAKER) (test cxwt=312) BILIRUBIN TOTAL (BEAKER) 2.6 mg/dL 0.2-1.2 (test ocgn=924) SODIUM (BEAKER) (test 136 meq/L 136-145 siwv=455) POTASSIUM (BEAKER) (test 3.9 meq/L 3.5-5.1 bmrl=435) CHLORIDE (BEAKER) (test 107 meq/L 98-107 casm=068) CO2 (BEAKER) (test 23 meq/L 22-29 gyrk=575) BLOOD UREA NITROGEN 41 mg/dL 7-21 (BEAKER) (test dbvu=664) CREATININE (BEAKER) (test 1.47 mg/dL 0.57-1.25 rnre=422) GLUCOSE RANDOM (BEAKER) 169 mg/dL 70-105 (test roky=539) CALCIUM (BEAKER) (test 10.0 mg/dL 8.4-10.2 lckc=021) AST (SGOT) (BEAKER) (test 13 U/L 5-34 vjen=737) ALT (SGPT) (BEAKER) (test 9 U/L 6-55 anxs=916) EGFR (BEAKER) (test 50 mL/min/1.73 sq m ESTIMATED GFR IS NOT daaf=5601) ACCURATE CREATININE CLEARANCE IN PREDICTING GLOMERULAR FILTRATION RATE. ESTIMATED GFR IS NOT APPLICABLE FOR DIALYSIS PATIENTS. CALCIUM, [id number] 05:45:00 Test Item Value Reference Range Comments CALCIUM IONIZED (BEAKER) (test ycxf=286) 1.28 mmol/L 1.12-1.27 PH, BLOOD (BEAKER) (test wnjc=1819) 7.39 POCT-GLUCOSE [id number] 21:51:00 Test Item Value Reference Range Comments POC-GLUCOSE METER (BEAKER) 143 mg/dL 70-110 TESTED AT [address] (test pakh=4480) [facility] [address] POCT-GLUCOSE [id number] 17:44:00 Test Item Value Reference Range Comments POC-GLUCOSE METER (BEAKER) 288 mg/dL 70-110 TESTED AT [address] (test odlp=7381) [facility] [address] POCT-GLUCOSE [id number] 12:55:00 Test Item Value Reference Range Comments POC-GLUCOSE METER (BEAKER) 310 mg/dL 70-110 TESTED AT [address] (test tpuj=3148) [facility] [address] POCT-GLUCOSE [id number] 09:01:00 Test Item Value Reference Range Comments POC-GLUCOSE METER (BEAKER) 162 mg/dL 70-110 TESTED AT [facility] [address] [facility] (test kfum=4820) [facility] [address] HEMOGLOBIN AND [id number] 08:59:00 Test Item Value Reference Range Comments HEMOGLOBIN (BEAKER) (test ssep=919) 6.6 GM/DL 13.7-17.5 HEMATOCRIT (BEAKER) (test rjuv=333) 19.7 % 40.1-51.0 [id number] 06:54:00 Test Item Value Reference Range Comments PHOSPHORUS (BEAKER) (test zdqi=929) 1.0 mg/dL 2.3-4.7 [id number] 06:42:00 Test Item Value Reference Range Comments MAGNESIUM (BEAKER) (test dtie=037) 2.2 mg/dL 1.6-2.6 COMPREHENSIVE METABOLIC [id number] 06:42:00 Test Item Value Reference Range Comments TOTAL PROTEIN (BEAKER) 5.7 gm/dL 6.0-8.3 (test alrq=053) ALBUMIN (BEAKER) (test 4.3 g/dL 3.5-5.0 ujal=3599) ALKALINE PHOSPHATASE 56 U/L 40-150 (BEAKER) (test eugb=040) BILIRUBIN TOTAL (BEAKER) 1.3 mg/dL 0.2-1.2 (test tocb=444) SODIUM (BEAKER) (test 134 meq/L 136-145 jxyx=913) POTASSIUM (BEAKER) (test 4.2 meq/L 3.5-5.1 pqio=348) CHLORIDE (BEAKER) (test 107 meq/L 98-107 gxqy=624) CO2 (BEAKER) (test 21 meq/L 22-29 xoob=487) BLOOD UREA NITROGEN 38 mg/dL 7-21 (BEAKER) (test wnxl=889) CREATININE (BEAKER) (test 1.41 mg/dL 0.57-1.25 oqjg=334) GLUCOSE RANDOM (BEAKER) 144 mg/dL 70-105 (test liln=004) CALCIUM (BEAKER) (test 10.6 mg/dL 8.4-10.2 jmwm=252) AST (SGOT) (BEAKER) (test 13 U/L 5-34 blqu=351) ALT (SGPT) (BEAKER) (test 8 U/L 6-55 csks=616) EGFR (BEAKER) (test 53 mL/min/1.73 sq m ESTIMATED GFR IS NOT osat=5260) ACCURATE CREATININE CLEARANCE IN PREDICTING GLOMERULAR FILTRATION RATE. ESTIMATED GFR IS NOT APPLICABLE FOR DIALYSIS PATIENTS. CALCIUM, [id number] 05:52:00 Test Item Value Reference Range Comments CALCIUM IONIZED (BEAKER) (test emsj=990) 1.25 mmol/L 1.12-1.27 PH, BLOOD (BEAKER) (test gbfv=6705) 7.47 CBC W/PLT COUNT & AUTO [id number] 04:49:00 Test Item Value Reference Range Comments WHITE BLOOD CELL COUNT (BEAKER) (test kxvi=685) 4.6 K/ L 3.5-10.5 RED BLOOD CELL COUNT (BEAKER) (test icny=078) 2.09 M/ L 4.63-6.08 HEMOGLOBIN (BEAKER) (test vnxx=860) 6.6 GM/DL 13.7-17.5 HEMATOCRIT (BEAKER) (test bnck=352) 19.8 % 40.1-51.0 MEAN CORPUSCULAR VOLUME (BEAKER) (test cfaj=459) 94.7 fL 79.0-92.2 MEAN CORPUSCULAR HEMOGLOBIN (BEAKER) (test 31.6 pg 25.7-32.2 kxoj=526) MEAN CORPUSCULAR HEMOGLOBIN CONC (BEAKER) (test 33.3 GM/DL 32.3-36.5 eowa=518) RED CELL DISTRIBUTION WIDTH (BEAKER) (test 16.0 % 11.6-14.4 qeys=962) PLATELET COUNT (BEAKER) (test qkvy=685) 49 K/CU MM 150-450 MEAN PLATELET VOLUME (BEAKER) (test keid=560) 9.3 fL 9.4-12.4 NUCLEATED RED BLOOD CELLS (BEAKER) (test 0 /100 WBC 0-0 eiaj=225) NEUTROPHILS RELATIVE PERCENT (BEAKER) (test 84 % yzjo=907) LYMPHOCYTES RELATIVE PERCENT (BEAKER) (test 6 % fivx=096) MONOCYTES RELATIVE PERCENT (BEAKER) (test 8 % lsef=238) EOSINOPHILS RELATIVE PERCENT (BEAKER) (test 0 % fnyo=329) BASOPHILS RELATIVE PERCENT (BEAKER) (test 0 % xesn=234) NEUTROPHILS ABSOLUTE COUNT (BEAKER) (test 3.90 K/ L 1.78-5.38 yxam=494) LYMPHOCYTES ABSOLUTE COUNT (BEAKER) (test 0.29 K/ L 1.32-3.57 eobq=808) MONOCYTES ABSOLUTE COUNT (BEAKER) (test kzas=272) 0.39 K/ L 0.30-0.82 EOSINOPHILS ABSOLUTE COUNT (BEAKER) (test 0.00 K/ L 0.04-0.54 gcjn=645) BASOPHILS ABSOLUTE COUNT (BEAKER) (test crrc=816) 0.00 K/ L 0.01-0.08 IMMATURE GRANULOCYTES-RELATIVE PERCENT (BEAKER) 1 % 0-1 (test eiuo=0115) POCT-GLUCOSE [id number] 22:24:00 Test Item Value Reference Range Comments POC-GLUCOSE METER (BEAKER) 272 mg/dL 70-110 TESTED AT [facility] [address] [facility] (test xegh=2545) [facility] [address] BODY FLUID CELL COUNT WITH [id number] 20:26:00 Test Item Value Reference Range Comments APPEARANCE FLUID (BEAKER) (test zjkp=926) Clear Clear COLOR FLUID (BEAKER) (test roal=601) Yellow Colorless, Straw RBC FLUID (BEAKER) (test tuwf=367) 160 /cu mm <=1 ADJUSTED WBC FLUID (BEAKER) (test yusl=0087) 66 /cu mm <=5 LINING CELLS (BEAKER) (test isaq=1221) 0 /cu mm <=1 NEUTROPHILS FLUID (BEAKER) (test ytpr=1813) 2 % LYMPHS FLUID (BEAKER) (test dpkk=109) 17 % MONO/MACROPHAGE FLUID (BEAKER) (test zgmk=443) 81 % EOSINOPHILS FLUID (BEAKER) (test guae=598) 0 % BASO FLUID (BEAKER) (test lgnk=771) 0 % CONTAINER BODY FLUID (BEAKER) (test cgce=3402) EDTA Tube ALBUMIN, BODY [id number] 18:58:00 Test Item Value Reference Range Comments ALBUMIN FLUID (BEAKER) (test yjsm=987) 1.6 gm/dL Reference Range: No Normals Assay performance has not been validated for this type of specimen.POCT-GLUCOSE [id number] 17:51:00 Test Item Value Reference Range Comments POC-GLUCOSE METER (BEAKER) 275 mg/dL 70-110 TESTED AT [address] (test ejox=6136) [facility] [address] U/S, [id number] 16:16:00Reason for exam:->ascitesFINAL REPORT History: Ascites. Procedure: Following informed written consent, the patient's left lower quadrant was prepped and draped in the usual sterile manner. 2% lidocaine was given locally for anesthesia. No conscious sedation was administered. Using ultrasound guidance and a 5 lao angiocatheter, access was gained to the left [...] was removed without complications. Signed: Karina Rain Verified Date/Time: 11/18/2018 16:16:57 Reading Location: [address] Ultrasound Reading Room POCT-GLUCOSE [id number] 10:24:00 Test Item Value Reference Range Comments POC-GLUCOSE METER (BEAKER) 187 mg/dL 70-110 TESTED AT [address] (test mqii=4266) [facility] [address] CALCIUM, [id number] 07:11:00 Test Item Value Reference Range Comments CALCIUM IONIZED (BEAKER) (test utyn=089) 1.42 mmol/L 1.12-1.27 PH, BLOOD (BEAKER) (test xigc=9035) 7.38 VITAMIN D, [id number] 07:00:00 Test Item Value Reference Range Comments VITAMIN D 25-OH (BEAKER) (test ytbn=9950) 6.3 ng/mL 6.6-49.9 Effective 08/06/2017: Reference Range ChangeNew: 6.6-49.9 ng/mL Previous: 13.0 -47.8 ng/mLRecommended Vitamin D Target Range: 30.0-40.0 ng/[id number] 06:43:00 Test Item Value Reference Range Comments PHOSPHORUS (BEAKER) (test uoek=102) 1.6 mg/dL 2.3-4.7 [id number] 06:43:00 Test Item Value Reference Range Comments MAGNESIUM (BEAKER) (test bunz=786) 2.1 mg/dL 1.6-2.6 PTH, [id number] 06:43:00 Test Item Value Reference Range Comments PARATHYROID HORMONE INTACT (BEAKER) (test 18.8 pg/mL 8.5-72.5 spwf=256) COMPREHENSIVE METABOLIC [id number] 06:43:00 Test Item Value Reference Range Comments TOTAL PROTEIN (BEAKER) 5.9 gm/dL 6.0-8.3 (test fqxp=903) ALBUMIN (BEAKER) (test 4.4 g/dL 3.5-5.0 kwab=2852) ALKALINE PHOSPHATASE 66 U/L 40-150 (BEAKER) (test vzdz=836) BILIRUBIN TOTAL (BEAKER) 1.5 mg/dL 0.2-1.2 (test bepf=910) SODIUM (BEAKER) (test 134 meq/L 136-145 zjrz=652) POTASSIUM (BEAKER) (test 3.2 meq/L 3.5-5.1 xgfb=259) CHLORIDE (BEAKER) (test 104 meq/L 98-107 uqlu=220) CO2 (BEAKER) (test 21 meq/L 22-29 xyha=800) BLOOD UREA NITROGEN 33 mg/dL 7-21 (BEAKER) (test ufcp=750) CREATININE (BEAKER) (test 1.60 mg/dL 0.57-1.25 huar=709) GLUCOSE RANDOM (BEAKER) 149 mg/dL 70-105 (test kacx=769) CALCIUM (BEAKER) (test 11.1 mg/dL 8.4-10.2 sdwf=479) AST (SGOT) (BEAKER) (test 12 U/L 5-34 gida=963) ALT (SGPT) (BEAKER) (test 9 U/L 6-55 nbgx=660) EGFR (BEAKER) (test 45 mL/min/1.73 sq m ESTIMATED GFR IS NOT eugf=0896) ACCURATE CREATININE CLEARANCE IN PREDICTING GLOMERULAR FILTRATION RATE. ESTIMATED GFR IS NOT APPLICABLE FOR DIALYSIS PATIENTS. CBC W/PLT COUNT & AUTO [id number] 06:28:00 Test Item Value Reference Range Comments WHITE BLOOD CELL COUNT (BEAKER) (test mkcc=658) 4.6 K/ L 3.5-10.5 RED BLOOD CELL COUNT (BEAKER) (test mmcj=400) 2.27 M/ L 4.63-6.08 HEMOGLOBIN (BEAKER) (test pcgv=923) 7.3 GM/DL 13.7-17.5 HEMATOCRIT (BEAKER) (test gkue=749) 21.4 % 40.1-51.0 MEAN CORPUSCULAR VOLUME (BEAKER) (test mmnn=606) 94.3 fL 79.0-92.2 MEAN CORPUSCULAR HEMOGLOBIN (BEAKER) (test 32.2 pg 25.7-32.2 clpu=422) MEAN CORPUSCULAR HEMOGLOBIN CONC (BEAKER) (test 34.1 GM/DL 32.3-36.5 eddu=439) RED CELL DISTRIBUTION WIDTH (BEAKER) (test 15.8 % 11.6-14.4 bxai=356) PLATELET COUNT (BEAKER) (test gbgf=979) 51 K/CU MM 150-450 MEAN PLATELET VOLUME (BEAKER) (test nlea=385) 9.8 fL 9.4-12.4 NUCLEATED RED BLOOD CELLS (BEAKER) (test 0 /100 WBC 0-0 bfxw=753) NEUTROPHILS RELATIVE PERCENT (BEAKER) (test 76 % jdjg=863) LYMPHOCYTES RELATIVE PERCENT (BEAKER) (test 7 % ccmc=011) MONOCYTES RELATIVE PERCENT (BEAKER) (test 15 % xjgo=545) EOSINOPHILS RELATIVE PERCENT (BEAKER) (test 1 % wcep=638) BASOPHILS RELATIVE PERCENT (BEAKER) (test 0 % qcir=500) NEUTROPHILS ABSOLUTE COUNT (BEAKER) (test 3.50 K/ L 1.78-5.38 tyea=113) LYMPHOCYTES ABSOLUTE COUNT (BEAKER) (test 0.31 K/ L 1.32-3.57 lqml=894) MONOCYTES ABSOLUTE COUNT (BEAKER) (test tefj=379) 0.69 K/ L 0.30-0.82 EOSINOPHILS ABSOLUTE COUNT (BEAKER) (test 0.04 K/ L 0.04-0.54 epzc=070) BASOPHILS ABSOLUTE COUNT (BEAKER) (test laob=217) 0.00 K/ L 0.01-0.08 IMMATURE GRANULOCYTES-RELATIVE PERCENT (BEAKER) 1 % 0-1 (test laux=3920) POCT-GLUCOSE [id number] 23:08:00 Test Item Value Reference Range Comments POC-GLUCOSE METER (BEAKER) 259 mg/dL 70-110 TESTED AT [address] (test djzc=2796) [place] [id number] POCT-GLUCOSE [id number] 18:53:00 Test Item Value Reference Range Comments POC-GLUCOSE METER (BEAKER) 211 mg/dL 70-110 TESTED AT [address] (test lneh=4415) [place] [id number] POCT-GLUCOSE [id number] 08:37:00 Test Item Value Reference Range Comments POC-GLUCOSE METER (BEAKER) 208 mg/dL 70-110 TESTED AT [address] (test bziq=2060) [place] [address] [id number] 07:38:00 Test Item Value Reference Range Comments PHOSPHORUS (BEAKER) (test jgnj=834) 2.3 mg/dL 2.3-4.7 [id number] 07:38:00 Test Item Value Reference Range Comments MAGNESIUM (BEAKER) (test ujcq=881) 2.2 mg/dL 1.6-2.6 BASIC METABOLIC [id number] 07:38:00 Test Item Value Reference Range Comments SODIUM (BEAKER) (test 132 meq/L 136-145 jrul=843) POTASSIUM (BEAKER) (test 3.9 meq/L 3.5-5.1 zjrw=736) CHLORIDE (BEAKER) (test 103 meq/L 98-107 hpdz=687) CO2 (BEAKER) (test 18 meq/L 22-29 rzgu=602) BLOOD UREA NITROGEN 32 mg/dL 7-21 (BEAKER) (test zgzb=446) CREATININE (BEAKER) (test 1.59 mg/dL 0.57-1.25 clyj=794) GLUCOSE RANDOM (BEAKER) 152 mg/dL 70-105 (test rcsr=736) CALCIUM (BEAKER) (test 10.9 mg/dL 8.4-10.2 jozr=013) EGFR (BEAKER) (test 46 mL/min/1.73 sq m ESTIMATED GFR IS NOT lcwf=8876) ACCURATE CREATININE CLEARANCE IN PREDICTING GLOMERULAR FILTRATION RATE. ESTIMATED GFR IS NOT APPLICABLE FOR DIALYSIS PATIENTS. CALCIUM, [id number] 07:14:00 Test Item Value Reference Range Comments CALCIUM IONIZED (BEAKER) (test vrnk=538) 1.33 mmol/L 1.12-1.27 PH, BLOOD (BEAKER) (test gfet=1517) 7.34 CBC W/PLT COUNT & AUTO [id number] 07:13:00 Test Item Value Reference Range Comments WHITE BLOOD CELL COUNT (BEAKER) (test uxqt=720) 5.7 K/ L 3.5-10.5 RED BLOOD CELL COUNT (BEAKER) (test qqzn=341) 2.38 M/ L 4.63-6.08 HEMOGLOBIN (BEAKER) (test luju=673) 7.6 GM/DL 13.7-17.5 HEMATOCRIT (BEAKER) (test gtqd=537) 22.6 % 40.1-51.0 MEAN CORPUSCULAR VOLUME (BEAKER) (test qrme=606) 95.0 fL 79.0-92.2 MEAN CORPUSCULAR HEMOGLOBIN (BEAKER) (test 31.9 pg 25.7-32.2 xtrn=663) MEAN CORPUSCULAR HEMOGLOBIN CONC (BEAKER) (test 33.6 GM/DL 32.3-36.5 dsqz=912) RED CELL DISTRIBUTION WIDTH (BEAKER) (test 15.8 % 11.6-14.4 krkt=032) PLATELET COUNT (BEAKER) (test oaak=564) 60 K/CU MM 150-450 MEAN PLATELET VOLUME (BEAKER) (test qcgw=478) 9.6 fL 9.4-12.4 NUCLEATED RED BLOOD CELLS (BEAKER) (test 0 /100 WBC 0-0 hlen=380) NEUTROPHILS RELATIVE PERCENT (BEAKER) (test 79 % krgt=406) LYMPHOCYTES RELATIVE PERCENT (BEAKER) (test 7 % wugr=838) MONOCYTES RELATIVE PERCENT (BEAKER) (test 14 % nszg=563) EOSINOPHILS RELATIVE PERCENT (BEAKER) (test 0 % cbna=250) BASOPHILS RELATIVE PERCENT (BEAKER) (test 0 % tgxl=566) NEUTROPHILS ABSOLUTE COUNT (BEAKER) (test 4.49 K/ L 1.78-5.38 qhbf=514) LYMPHOCYTES ABSOLUTE COUNT (BEAKER) (test 0.38 K/ L 1.32-3.57 aoqh=175) MONOCYTES ABSOLUTE COUNT (BEAKER) (test rxaq=102) 0.77 K/ L 0.30-0.82 EOSINOPHILS ABSOLUTE COUNT (BEAKER) (test 0.00 K/ L 0.04-0.54 yzto=912) BASOPHILS ABSOLUTE COUNT (BEAKER) (test dowc=241) 0.00 K/ L 0.01-0.08 IMMATURE GRANULOCYTES-RELATIVE PERCENT (BEAKER) 1 % 0-1 (test gnas=4479) POCT-GLUCOSE [id number] 21:28:00 Test Item Value Reference Range Comments POC-GLUCOSE METER (BEAKER) 229 mg/dL 70-110 TESTED AT [address] (test iabv=7089) [place] [address] POCT-GLUCOSE [id number] 16:58:00 Test Item Value Reference Range Comments POC-GLUCOSE METER (BEAKER) 207 mg/dL 70-110 TESTED AT [address] (test pbkx=3470) [place] [address] POCT-GLUCOSE [id number] 15:38:00 Test Item Value Reference Range Comments POC-GLUCOSE METER (BEAKER) 198 mg/dL 70-110 TESTED AT [address] (test irwe=0020) [place] [address] BASIC METABOLIC [id number] 14:09:00 Test Item Value Reference Range Comments SODIUM (BEAKER) (test 128 meq/L 136-145 xyqj=033) POTASSIUM (BEAKER) (test 3.7 meq/L 3.5-5.1 oriy=631) CHLORIDE (BEAKER) (test 102 meq/L 98-107 ujdh=668) CO2 (BEAKER) (test 17 meq/L 22-29 ihhk=122) BLOOD UREA NITROGEN 32 mg/dL 7-21 (BEAKER) (test ixur=830) CREATININE (BEAKER) (test 1.59 mg/dL 0.57-1.25 kltj=315) GLUCOSE RANDOM (BEAKER) 200 mg/dL 70-105 (test rljy=683) CALCIUM (BEAKER) (test 10.1 mg/dL 8.4-10.2 sbgr=341) EGFR (BEAKER) (test 46 mL/min/1.73 sq m ESTIMATED GFR IS NOT toiy=8255) ACCURATE CREATININE CLEARANCE IN PREDICTING GLOMERULAR FILTRATION RATE. ESTIMATED GFR IS NOT APPLICABLE FOR DIALYSIS PATIENTS. POCT-GLUCOSE [id number] 08:26:00 Test Item Value Reference Range Comments POC-GLUCOSE METER (BEAKER) 188 mg/dL 70-110 TESTED AT [facility] [address] [facility] (test godv=0924) [facility] [address] BLOOD [id number] 07:00:00 Test Item Value Reference Range Comments CULTURE (BEAKER) (test ltus=9029) No growth in 5 days BLOOD [id number] 07:00:00 Test Item Value Reference Range Comments CULTURE (BEAKER) (test tfjf=7234) No growth in 5 days BLOOD GAS, [id number] 06:30:00 Test Item Value Reference Range Comments PH VENOUS (BEAKER) (test jjon=541) 7.39 7.32-7.42 PCO2 VENOUS (BEAKER) (test jtql=018) 35 mmHg 41-51 PO2 VENOUS (BEAKER) (test ekyq=394) 97 mmHg 25-40 O2 SATURATION VENOUS (BEAKER) (test yzbp=065) 97.4 % 40.0-70.0 HCO3 VENOUS (BEAKER) (test jjdt=671) 21 mmol/L 21-29 BASE EXCESS VENOUS (BEAKER) (test yxhy=743) -3.8 mmol/L -2.0-3.0 PATIENT TEMPERATURE (BEAKER) (test ymsl=1617) 37.0 C FIO2 (BEAKER) (test xrws=1700) 100.0 % CBC W/PLT COUNT & AUTO [id number] 06:20:00 Test Item Value Reference Range Comments WHITE BLOOD CELL COUNT (BEAKER) (test kpev=272) 6.2 K/ L 3.5-10.5 RED BLOOD CELL COUNT (BEAKER) (test qbgo=173) 2.22 M/ L 4.63-6.08 HEMOGLOBIN (BEAKER) (test gsoh=151) 7.0 GM/DL 13.7-17.5 HEMATOCRIT (BEAKER) (test sxld=524) 20.4 % 40.1-51.0 MEAN CORPUSCULAR VOLUME (BEAKER) (test lmuk=560) 91.9 fL 79.0-92.2 MEAN CORPUSCULAR HEMOGLOBIN (BEAKER) (test 31.5 pg 25.7-32.2 zonz=531) MEAN CORPUSCULAR HEMOGLOBIN CONC (BEAKER) (test 34.3 GM/DL 32.3-36.5 dzsw=509) RED CELL DISTRIBUTION WIDTH (BEAKER) (test 14.9 % 11.6-14.4 hvfl=330) PLATELET COUNT (BEAKER) (test tpse=475) 53 K/CU MM 150-450 MEAN PLATELET VOLUME (BEAKER) (test brbc=400) 9.5 fL 9.4-12.4 NUCLEATED RED BLOOD CELLS (BEAKER) (test 0 /100 WBC 0-0 mkxr=142) NEUTROPHILS RELATIVE PERCENT (BEAKER) (test 84 % xmmj=258) LYMPHOCYTES RELATIVE PERCENT (BEAKER) (test 5 % mhqz=963) MONOCYTES RELATIVE PERCENT (BEAKER) (test 11 % bcwy=356) EOSINOPHILS RELATIVE PERCENT (BEAKER) (test 0 % rztu=325) BASOPHILS RELATIVE PERCENT (BEAKER) (test 0 % lwcu=437) NEUTROPHILS ABSOLUTE COUNT (BEAKER) (test 5.16 K/ L 1.78-5.38 murf=935) LYMPHOCYTES ABSOLUTE COUNT (BEAKER) (test 0.30 K/ L 1.32-3.57 swtd=363) MONOCYTES ABSOLUTE COUNT (BEAKER) (test urqn=701) 0.69 K/ L 0.30-0.82 EOSINOPHILS ABSOLUTE COUNT (BEAKER) (test 0.00 K/ L 0.04-0.54 vxze=637) BASOPHILS ABSOLUTE COUNT (BEAKER) (test igtp=067) 0.00 K/ L 0.01-0.08 IMMATURE GRANULOCYTES-RELATIVE PERCENT (BEAKER) 1 % 0-1 (test jpma=3518) POCT-GLUCOSE [id number] 05:04:00 Test Item Value Reference Range Comments POC-GLUCOSE METER (BEAKER) 298 mg/dL 70-110 TESTED AT [address] (test uccm=3362) [facility] [address] POCT-GLUCOSE [id number] 12:28:00 Test Item Value Reference Range Comments POC-GLUCOSE METER (BEAKER) 261 mg/dL 70-110 TESTED AT [address] (test mgaz=9261) [facility] [address] BODY FLUID CULTURE + GRAM [id number] 10:18:00 Test Item Value Reference Range Comments CULTURE (BEAKER) (test sduw=8093) No growth GRAM STAIN RESULT (BEAKER) (test 1+ WBCs ijqy=2275) GRAM STAIN RESULT (BEAKER) (test No organisms seen nuta=14984) CBC W/PLT COUNT & AUTO [id number] 09:22:00 Test Item Value Reference Range Comments WHITE BLOOD CELL COUNT (BEAKER) (test ecwm=978) 6.7 K/ L 3.5-10.5 RED BLOOD CELL COUNT (BEAKER) (test mkaw=899) 2.18 M/ L 4.63-6.08 HEMOGLOBIN (BEAKER) (test pytn=771) 7.0 GM/DL 13.7-17.5 HEMATOCRIT (BEAKER) (test govl=399) 20.4 % 40.1-51.0 MEAN CORPUSCULAR VOLUME (BEAKER) (test ghzb=432) 93.6 fL 79.0-92.2 MEAN CORPUSCULAR HEMOGLOBIN (BEAKER) (test 32.1 pg 25.7-32.2 qexl=245) MEAN CORPUSCULAR HEMOGLOBIN CONC (BEAKER) (test 34.3 GM/DL 32.3-36.5 rlte=649) RED CELL DISTRIBUTION WIDTH (BEAKER) (test 15.1 % 11.6-14.4 jdzg=489) PLATELET COUNT (BEAKER) (test eyaf=139) 62 K/CU MM 150-450 MEAN PLATELET VOLUME (BEAKER) (test sznz=333) 9.0 fL 9.4-12.4 NUCLEATED RED BLOOD CELLS (BEAKER) (test 0 /100 WBC 0-0 tflv=914) NEUTROPHILS RELATIVE PERCENT (BEAKER) (test 84 % frnd=747) LYMPHOCYTES RELATIVE PERCENT (BEAKER) (test 5 % wyle=638) MONOCYTES RELATIVE PERCENT (BEAKER) (test 10 % wupl=889) EOSINOPHILS RELATIVE PERCENT (BEAKER) (test 0 % potf=480) BASOPHILS RELATIVE PERCENT (BEAKER) (test 0 % sgqi=283) NEUTROPHILS ABSOLUTE COUNT (BEAKER) (test 5.63 K/ L 1.78-5.38 eudh=464) LYMPHOCYTES ABSOLUTE COUNT (BEAKER) (test 0.32 K/ L 1.32-3.57 myjw=642) MONOCYTES ABSOLUTE COUNT (BEAKER) (test ueky=748) 0.66 K/ L 0.30-0.82 EOSINOPHILS ABSOLUTE COUNT (BEAKER) (test 0.00 K/ L 0.04-0.54 ddze=610) BASOPHILS ABSOLUTE COUNT (BEAKER) (test vtcm=101) 0.00 K/ L 0.01-0.08 IMMATURE GRANULOCYTES-RELATIVE PERCENT (BEAKER) 1 % 0-1 (test msms=1589) POCT-GLUCOSE [id number] 08:59:00 Test Item Value Reference Range Comments POC-GLUCOSE METER (BEAKER) 180 mg/dL 70-110 TESTED AT [address] (test geji=9771) [place] [id number] POCT-GLUCOSE [id number] 21:23:00 Test Item Value Reference Range Comments POC-GLUCOSE METER (BEAKER) 224 mg/dL 70-110 TESTED AT [address] (test qkup=3631) [place] [address] SODIUM, RANDOM [id number] 19:24:00 Test Item Value Reference Range Comments SODIUM URINE (BEAKER) (test nqrc=606) < meq/L Reference Range: No NormalsCREATININE, RANDOM [id number] 19:22:00 Test Item Value Reference Range Comments CREATININE URINE (BEAKER) (test pzwh=994) 103.7 mg/dL Reference Range: No NormalsBASIC METABOLIC [id number] 19:18:00 Test Item Value Reference Range Comments SODIUM (BEAKER) (test 127 meq/L 136-145 neeh=313) POTASSIUM (BEAKER) (test 3.5 meq/L 3.5-5.1 pqqe=427) CHLORIDE (BEAKER) (test 102 meq/L 98-107 mllb=271) CO2 (BEAKER) (test 15 meq/L 22-29 xkbl=008) BLOOD UREA NITROGEN 34 mg/dL 7-21 (BEAKER) (test apeg=905) CREATININE (BEAKER) (test 1.61 mg/dL 0.57-1.25 wvlo=299) GLUCOSE RANDOM (BEAKER) 194 mg/dL 70-105 (test ompa=441) CALCIUM (BEAKER) (test 9.3 mg/dL 8.4-10.2 imqp=094) EGFR (BEAKER) (test 45 mL/min/1.73 sq m ESTIMATED GFR IS NOT czrs=3732) ACCURATE CREATININE CLEARANCE IN PREDICTING GLOMERULAR FILTRATION RATE. ESTIMATED GFR IS NOT APPLICABLE FOR DIALYSIS PATIENTS. OSMOLALITY, [id number] 18:58:00 Test Item Value Reference Range Comments OSMOLALITY URINE (BEAKER) (test ndqa=622) 490 mOsm/kg 40-1,400 URINALYSIS W/ REFLEX URINE [id number] 18:48:00 Test Item Value Reference Range Comments COLOR (BEAKER) (test sjwm=614) Yellow CLARITY (BEAKER) (test bfat=456) Clear SPECIFIC GRAVITY UA (BEAKER) (test illi=388) 1.016 1.001-1.035 PH UA (BEAKER) (test guhf=049) 6.0 5.0-8.0 PROTEIN UA (BEAKER) (test btlh=454) Negative Negative GLUCOSE UA (BEAKER) (test gjvf=100) Negative Negative KETONES UA (BEAKER) (test xksn=602) Negative Negative BILIRUBIN UA (BEAKER) (test qgsi=509) Negative Negative BLOOD UA (BEAKER) (test blvr=659) Negative Negative NITRITE UA (BEAKER) (test xumi=045) Negative Negative LEUKOCYTE ESTERASE UA (BEAKER) (test mwiu=880) Negative Negative UROBILINOGEN UA (BEAKER) (test jxxv=374) 0.2 mg/dL 0.2-1.0 RBC UA (BEAKER) (test yxjx=923) < /HPF WBC UA (BEAKER) (test rgjx=548) 1 /HPF SQUAMOUS EPITHELIAL (BEAKER) (test pzek=880) < /HPF HYALINE CASTS (BEAKER) (test tqaw=967) 5 /LPF SOURCE(BEAKER) (test rwka=4402) POCT-GLUCOSE [id number] 17:31:00 Test Item Value Reference Range Comments POC-GLUCOSE METER (BEAKER) 219 mg/dL 70-110 TESTED AT [address] (test evbp=2698) [facility] [address] POCT-GLUCOSE [id number] 12:14:00 Test Item Value Reference Range Comments POC-GLUCOSE METER (BEAKER) 242 mg/dL 70-110 TESTED AT [address] (test ttdu=6107) [facility] [address] POCT-GLUCOSE [id number] 09:00:00 Test Item Value Reference Range Comments POC-GLUCOSE METER (BEAKER) 259 mg/dL 70-110 TESTED AT [facility] [address] [facility] (test otzl=3413) [facility] [address] [id number] 06:29:00 Test Item Value Reference Range Comments PHOSPHORUS (BEAKER) (test gqvr=538) 4.0 mg/dL 2.3-4.7 [id number] 06:29:00 Test Item Value Reference Range Comments MAGNESIUM (BEAKER) (test aywl=502) 1.6 mg/dL 1.6-2.6 BASIC METABOLIC [id number] 06:29:00 Test Item Value Reference Range Comments SODIUM (BEAKER) (test 125 meq/L 136-145 xjhu=747) POTASSIUM (BEAKER) (test 3.9 meq/L 3.5-5.1 ynwt=169) CHLORIDE (BEAKER) (test 102 meq/L 98-107 wjaf=891) CO2 (BEAKER) (test 17 meq/L 22-29 iwlg=312) BLOOD UREA NITROGEN 35 mg/dL 7-21 (BEAKER) (test gwdy=327) CREATININE (BEAKER) (test 1.60 mg/dL 0.57-1.25 riux=803) GLUCOSE RANDOM (BEAKER) 162 mg/dL 70-105 (test uyds=862) CALCIUM (BEAKER) (test 8.7 mg/dL 8.4-10.2 lyzu=903) EGFR (BEAKER) (test 45 mL/min/1.73 sq m ESTIMATED GFR IS NOT fehs=3691) ACCURATE CREATININE CLEARANCE IN PREDICTING GLOMERULAR FILTRATION RATE. ESTIMATED GFR IS NOT APPLICABLE FOR DIALYSIS PATIENTS. PH, [id number] 05:47:00 Test Item Value Reference Range Comments PH VENOUS (BEAKER) (test opce=086) 7.39 7.32-7.42 CALCIUM, [id number] 05:47:00 Test Item Value Reference Range Comments CALCIUM IONIZED (BEAKER) (test olub=377) 1.15 mmol/L 1.12-1.27 PH, BLOOD (BEAKER) (test ggfw=8405) 7.39 CBC W/PLT COUNT & AUTO [id number] 05:22:00 Test Item Value Reference Range Comments WHITE BLOOD CELL COUNT (BEAKER) (test frfp=814) 4.5 K/ L 3.5-10.5 RED BLOOD CELL COUNT (BEAKER) (test embx=995) 2.52 M/ L 4.63-6.08 HEMOGLOBIN (BEAKER) (test egfv=642) 8.0 GM/DL 13.7-17.5 HEMATOCRIT (BEAKER) (test ksjk=620) 23.4 % 40.1-51.0 MEAN CORPUSCULAR VOLUME (BEAKER) (test luyo=543) 92.9 fL 79.0-92.2 MEAN CORPUSCULAR HEMOGLOBIN (BEAKER) (test 31.7 pg 25.7-32.2 zcrm=159) MEAN CORPUSCULAR HEMOGLOBIN CONC (BEAKER) (test 34.2 GM/DL 32.3-36.5 vnti=807) RED CELL DISTRIBUTION WIDTH (BEAKER) (test 14.7 % 11.6-14.4 buxf=499) PLATELET COUNT (BEAKER) (test raor=994) 55 K/CU MM 150-450 MEAN PLATELET VOLUME (BEAKER) (test ymzz=225) 9.4 fL 9.4-12.4 NUCLEATED RED BLOOD CELLS (BEAKER) (test 0 /100 WBC 0-0 ztaf=774) NEUTROPHILS RELATIVE PERCENT (BEAKER) (test 82 % aohv=828) LYMPHOCYTES RELATIVE PERCENT (BEAKER) (test 9 % opdv=892) MONOCYTES RELATIVE PERCENT (BEAKER) (test 9 % usyc=948) EOSINOPHILS RELATIVE PERCENT (BEAKER) (test 0 % dvct=413) BASOPHILS RELATIVE PERCENT (BEAKER) (test 0 % voir=615) NEUTROPHILS ABSOLUTE COUNT (BEAKER) (test 3.68 K/ L 1.78-5.38 ljfm=129) LYMPHOCYTES ABSOLUTE COUNT (BEAKER) (test 0.38 K/ L 1.32-3.57 cade=776) MONOCYTES ABSOLUTE COUNT (BEAKER) (test zowo=497) 0.39 K/ L 0.30-0.82 EOSINOPHILS ABSOLUTE COUNT (BEAKER) (test 0.00 K/ L 0.04-0.54 qiqf=215) BASOPHILS ABSOLUTE COUNT (BEAKER) (test izjr=977) 0.01 K/ L 0.01-0.08 IMMATURE GRANULOCYTES-RELATIVE PERCENT (BEAKER) 1 % 0-1 (test wchz=5850) POCT-GLUCOSE [id number] 20:56:00 Test Item Value Reference Range Comments POC-GLUCOSE METER (BEAKER) 199 mg/dL 70-110 TESTED AT [address] (test rmcr=6625) [facility] [id number] POCT-GLUCOSE [id number] 17:21:00 Test Item Value Reference Range Comments POC-GLUCOSE METER (BEAKER) 184 mg/dL 70-110 TESTED AT [address] (test xavv=3187) [facility] [address] POCT-GLUCOSE [id number] 12:35:00 Test Item Value Reference Range Comments POC-GLUCOSE METER (BEAKER) 259 mg/dL 70-110 TESTED AT [address] (test kthd=0502) [facility] [address] POCT-GLUCOSE [id number] 09:15:00 Test Item Value Reference Range Comments POC-GLUCOSE METER (BEAKER) 146 mg/dL 70-110 TESTED AT [address] (test znnb=7255) [facility] [address] CALCIUM, [id number] 07:31:00 Test Item Value Reference Range Comments CALCIUM IONIZED (BEAKER) (test qlvf=438) 1.16 mmol/L 1.12-1.27 PH, BLOOD (BEAKER) (test orxb=8379) 7.36 CBC W/PLT COUNT & AUTO [id number] 06:59:00 Test Item Value Reference Range Comments WHITE BLOOD CELL COUNT (BEAKER) (test apmc=720) 5.2 K/ L 3.5-10.5 RED BLOOD CELL COUNT (BEAKER) (test pjdn=289) 2.47 M/ L 4.63-6.08 HEMOGLOBIN (BEAKER) (test lege=898) 7.8 GM/DL 13.7-17.5 HEMATOCRIT (BEAKER) (test ivnb=865) 23.5 % 40.1-51.0 MEAN CORPUSCULAR VOLUME (BEAKER) (test ombk=933) 95.1 fL 79.0-92.2 MEAN CORPUSCULAR HEMOGLOBIN (BEAKER) (test 31.6 pg 25.7-32.2 wsnv=572) MEAN CORPUSCULAR HEMOGLOBIN CONC (BEAKER) (test 33.2 GM/DL 32.3-36.5 lssc=337) RED CELL DISTRIBUTION WIDTH (BEAKER) (test 14.9 % 11.6-14.4 euhd=384) PLATELET COUNT (BEAKER) (test fpoh=158) 57 K/CU MM 150-450 MEAN PLATELET VOLUME (BEAKER) (test bpqa=280) 9.2 fL 9.4-12.4 NUCLEATED RED BLOOD CELLS (BEAKER) (test 0 /100 WBC 0-0 spus=406) NEUTROPHILS RELATIVE PERCENT (BEAKER) (test 69 % ecvy=464) LYMPHOCYTES RELATIVE PERCENT (BEAKER) (test 10 % alpk=613) MONOCYTES RELATIVE PERCENT (BEAKER) (test 16 % xxdv=774) EOSINOPHILS RELATIVE PERCENT (BEAKER) (test 4 % dxko=163) BASOPHILS RELATIVE PERCENT (BEAKER) (test 0 % wulz=302) NEUTROPHILS ABSOLUTE COUNT (BEAKER) (test 3.57 K/ L 1.78-5.38 wnep=214) LYMPHOCYTES ABSOLUTE COUNT (BEAKER) (test 0.53 K/ L 1.32-3.57 qkgv=808) MONOCYTES ABSOLUTE COUNT (BEAKER) (test cerh=416) 0.82 K/ L 0.30-0.82 EOSINOPHILS ABSOLUTE COUNT (BEAKER) (test 0.18 K/ L 0.04-0.54 ughj=310) BASOPHILS ABSOLUTE COUNT (BEAKER) (test tdmm=193) 0.02 K/ L 0.01-0.08 IMMATURE GRANULOCYTES-RELATIVE PERCENT (BEAKER) 1 % 0-1 (test ymkm=2079) [id number] 06:00:00 Test Item Value Reference Range Comments PHOSPHORUS (BEAKER) (test ibjz=472) 3.6 mg/dL 2.3-4.7 [id number] 06:00:00 Test Item Value Reference Range Comments MAGNESIUM (BEAKER) (test tcwl=572) 1.8 mg/dL 1.6-2.6 BASIC METABOLIC [id number] 06:00:00 Test Item Value Reference Range Comments SODIUM (BEAKER) (test 128 meq/L 136-145 gszh=829) POTASSIUM (BEAKER) (test 3.9 meq/L 3.5-5.1 zswp=720) CHLORIDE (BEAKER) (test 104 meq/L 98-107 dbip=016) CO2 (BEAKER) (test 17 meq/L 22-29 iddp=667) BLOOD UREA NITROGEN 38 mg/dL 7-21 (BEAKER) (test qttx=127) CREATININE (BEAKER) (test 1.80 mg/dL 0.57-1.25 qkyc=826) GLUCOSE RANDOM (BEAKER) 128 mg/dL 70-105 (test vfbb=134) CALCIUM (BEAKER) (test 8.9 mg/dL 8.4-10.2 escs=969) EGFR (BEAKER) (test 40 mL/min/1.73 sq m ESTIMATED GFR IS NOT tkuw=7988) ACCURATE CREATININE CLEARANCE IN PREDICTING GLOMERULAR FILTRATION RATE. ESTIMATED GFR IS NOT APPLICABLE FOR DIALYSIS PATIENTS. HEPATIC FUNCTION [id number] 06:00:00 Test Item Value Reference Range Comments TOTAL PROTEIN (BEAKER) (test jxcv=739) 5.2 gm/dL 6.0-8.3 ALBUMIN (BEAKER) (test zfml=9517) 3.0 g/dL 3.5-5.0 BILIRUBIN TOTAL (BEAKER) (test rmfr=619) 1.8 mg/dL 0.2-1.2 BILIRUBIN DIRECT (BEAKER) (test dbog=221) 1.1 mg/dL 0.1-0.5 ALKALINE PHOSPHATASE (BEAKER) (test juyp=184) 96 U/L 40-150 AST (SGOT) (BEAKER) (test eyzx=685) 14 U/L 5-34 ALT (SGPT) (BEAKER) (test jlvz=953) 8 U/L 6-55 LACTIC ACID, VENOUS, WHOLE [id number] 05:51:00 Test Item Value Reference Range Comments LACTATE BLOOD VENOUS (2) 1.8 mmol/L 0.5-2.2 Specimen slightly hemolyzed (BEAKER) (test qlia=8092) [id number] 05:45:00 Test Item Value Reference Range Comments PROTIME (BEAKER) (test aujz=452) 21.8 seconds 11.7-14.7 INR (BEAKER) (test kubm=999) 1.9 <=5.9 PARTIAL THROMBOPLASTIN TIME (BEAKER) (test 51.1 seconds 22.5-36.0 fsfc=813) RECOMMENDED COUMADIN/WARFARIN INR THERAPY RANGESSTANDARD DOSE: 2.0 - 3.0 Includes: PROPHYLAXIS forvenous thrombosis, systemic embolization; TREATMENT for venous thrombosis and/or pulmonary embolus.HIGH RISK: Target INR is 2.5-3.5 for patients with mechanical heart valves.CT, [id number] 22:17:00FINAL REPORT INDICATION:Abdominal pain. COMPARISON: Ultrasound abdomen [...] defect through which protrudes two adjacent fat-and- jcpjfztptl-dpaqh-ecjobprqas hernia sacs which together measure 11 cm [...] new since April 2018. Signed: Aristeo Xiong MDReport Verified Date/Time: 11/12/2018 22:17:07 Reading Location: [facility] [id number] Consult Reading Room 10: 17 PMU/S, [id number] 20:32:00Reason for exam:->HEShould this be performed at the bedside?->YesFINAL REPORT PROCEDURE: Ultrasound-guided paracentesis. INDICATION: Ascites. DESCRIPTION: After obtaining informed written consent, ultrasound scan of the abdomen identified ascites in the left lower quadrant. The overlying skin was prepped and draped in the usual, sterile fashion and local 1% lidocaine anesthesia was administered. A 5 [place] catheter was advanced into the peritoneal cavity and 4100 mL of cloudy yellow fluid was removed. The catheter was removed without immediate complication. Samples were sent for analysis. IMPRESSION: Uncomplicated ultrasound-guided paracentesis with 4100 mL of fluid removed. Signed: Stuart Dupree MDReport Verified Date/Time: 11/12/2018 20:32:52 Reading Location: [facility] [id number] Ultrasound Reading Room BODY FLUID CELL COUNT WITH [id number] 20:13:00 Test Item Value Reference Range Comments APPEARANCE FLUID (BEAKER) (test tvhj=018) Cloudy Clear COLOR FLUID (BEAKER) (test jdiu=371) Yellow Colorless, Straw RBC FLUID (BEAKER) (test aqsl=901) 78 /cu mm <=1 ADJUSTED WBC FLUID (BEAKER) (test pmxs=5429) 1355 /cu mm <=5 LINING CELLS (BEAKER) (test mwzr=6025) 0 /cu mm <=1 NEUTROPHILS FLUID (BEAKER) (test hzms=2999) 84 % LYMPHS FLUID (BEAKER) (test phiy=535) 4 % MONO/MACROPHAGE FLUID (BEAKER) (test xqxf=727) 12 % EOSINOPHILS FLUID (BEAKER) (test qfuw=748) 0 % BASO FLUID (BEAKER) (test ehip=519) 0 % CONTAINER BODY FLUID (BEAKER) (test viib=8340) EDTA Tube LACTIC ACID, VENOUS, WHOLE [id number] 18:05:00 Test Item Value Reference Range Comments LACTATE BLOOD VENOUS (2) (BEAKER) (test 2.0 mmol/L 0.5-2.2 liku=4186) Draw after Albumin infusionPOCT-GLUCOSE [id number] 17:58:00 Test Item Value Reference Range Comments POC-GLUCOSE METER (BEAKER) 185 mg/dL 70-110 TESTED AT [facility] [address] [facility] (test yrka=0575) [facility] [address] POCT-GLUCOSE [id number] 17:36:00 Test Item Value Reference Range Comments POC-GLUCOSE METER (BEAKER) 201 mg/dL 70-110 TESTED AT [facility] [address] [facility] (test chor=1389) [facility] [address] U/S, ABDOMINAL, [id number] 16:40:00Abdomen limited area? Add comment if clarification [...] Verified Date/Time: 11/12/2018 16:40 :20 Reading Location: [address] Ultrasound Reading Room U/S, DUPLEX, [id number] 16:40:00Please complete doppler for hepatic vasculatureReason [...] patent. 3.Cholelithiasis without acute cholecystitis. Signed: Stuart Dupreeort Verified Date/Time: 11/12/2018 16:40:20 Reading Location: [place] [id number] Ultrasound Reading Room SODIUM, RANDOM [id number] 16:29:00 Test Item Value Reference Range Comments SODIUM URINE (BEAKER) (test bxbj=587) < meq/L Reference Range: No NormalsCREATININE, RANDOM [id number] 16:29:00 Test Item Value Reference Range Comments CREATININE URINE (BEAKER) (test jgtb=047) 237.3 mg/dL Reference Range: No NormalsPROTEIN, RANDOM [id number] 16:25:00 Test Item Value Reference Range Comments PROTEIN, URINE (BEAKER) (test hkhh=0990) 15 mg/dL 0-14 OSMOLALITY, [id number] 15:33:00 Test Item Value Reference Range Comments OSMOLALITY URINE (BEAKER) (test fcdq=663) 575 mOsm/kg 40-1,400 URINALYSIS W/ REFLEX URINE [id number] 15:30:00 Test Item Value Reference Range Comments COLOR (BEAKER) (test dfyc=587) Yellow CLARITY (BEAKER) (test iptc=567) Clear SPECIFIC GRAVITY UA (BEAKER) (test flsb=014) 1.020 1.001-1.035 PH UA (BEAKER) (test eiqe=125) 5.5 5.0-8.0 PROTEIN UA (BEAKER) (test urnx=848) 10 mg/dL Negative GLUCOSE UA (BEAKER) (test ziyc=224) Negative Negative KETONES UA (BEAKER) (test zsvl=039) Negative Negative BILIRUBIN UA (BEAKER) (test gwhd=900) Negative Negative BLOOD UA (BEAKER) (test trht=596) Small Negative NITRITE UA (BEAKER) (test fwur=142) Negative Negative LEUKOCYTE ESTERASE UA (BEAKER) (test xpiq=328) Negative Negative UROBILINOGEN UA (BEAKER) (test zbvt=456) 0.2 mg/dL 0.2-1.0 RBC UA (BEAKER) (test pujk=751) 5 /HPF WBC UA (BEAKER) (test xjse=621) 3 /HPF HYALINE CASTS (BEAKER) (test uevp=736) 7 /LPF SOURCE(BEAKER) (test jgnh=0459) LACTIC ACID, VENOUS, WHOLE [id number] 14:42:00 Test Item Value Reference Range Comments LACTATE BLOOD VENOUS (2) (BEAKER) (test 3.2 mmol/L 0.5-2.2 qube=9459) RAD, ABDOMEN/KUB, 1 VIEW [id number] 09:14:00Reason for exam:->persistent vomitignFINAL REPORT TECHNIQUE: Supine radiographs of the abdomen dated 11/12/2018 HISTORY: Persistent vomiting COMPARISON: None IMPRESSION:No air-filled, dilated loops of bowel to suggest obstruction. No free intraperitoneal air. No abnormal soft tissue mass. Multiple vertebral body compression fractures are seen with kyphoplasty material. Small calcification seen in the right upper quadrant are compatible with gallstones. Signed: Gabriela Navarro MDReport Verified Date/Time: 11/12/2018 09:14:36 Reading Location: [facility] Radiology Reading Room POCT-GLUCOSE [id number] 07:59:00 Test Item Value Reference Range Comments POC-GLUCOSE METER (BEAKER) 126 mg/dL 70-110 TESTED AT [facility] [address] [facility] [facility] (test inls=1844) [facility] [address] [id number] 05:20:00 Test Item Value Reference Range Comments MAGNESIUM (BEAKER) (test cdqb=555) 1.9 mg/dL 1.6-2.6 BASIC METABOLIC [id number] 05:20:00 Test Item Value Reference Range Comments SODIUM (BEAKER) (test 132 meq/L 136-145 pyla=926) POTASSIUM (BEAKER) (test 4.4 meq/L 3.5-5.1 evyv=060) CHLORIDE (BEAKER) (test 108 meq/L 98-107 dvnv=891) CO2 (BEAKER) (test 20 meq/L 22-29 miev=173) BLOOD UREA NITROGEN 41 mg/dL 7-21 (BEAKER) (test eaog=378) CREATININE (BEAKER) (test 1.91 mg/dL 0.57-1.25 knhc=283) GLUCOSE RANDOM (BEAKER) 127 mg/dL 70-105 (test usiu=570) CALCIUM (BEAKER) (test 9.0 mg/dL 8.4-10.2 yezv=449) EGFR (BEAKER) (test 37 mL/min/1.73 sq m ESTIMATED GFR IS NOT kiac=8914) ACCURATE CREATININE CLEARANCE IN PREDICTING GLOMERULAR FILTRATION RATE. ESTIMATED GFR IS NOT APPLICABLE FOR DIALYSIS PATIENTS. HEPATIC FUNCTION [id number] 05:20:00 Test Item Value Reference Range Comments TOTAL PROTEIN (BEAKER) (test efkv=681) 5.4 gm/dL 6.0-8.3 ALBUMIN (BEAKER) (test dkhv=1708) 2.7 g/dL 3.5-5.0 BILIRUBIN TOTAL (BEAKER) (test dupj=742) 2.0 mg/dL 0.2-1.2 BILIRUBIN DIRECT (BEAKER) (test mxhq=699) 1.2 mg/dL 0.1-0.5 ALKALINE PHOSPHATASE (BEAKER) (test lowa=336) 121 U/L 40-150 AST (SGOT) (BEAKER) (test zmur=741) 18 U/L 5-34 ALT (SGPT) (BEAKER) (test yhma=507) 10 U/L 6-55 [id number] 05:05:00 Test Item Value Reference Range Comments PROTIME (BEAKER) (test ifur=715) 20.0 seconds 11.7-14.7 INR (BEAKER) (test qvrd=816) 1.7 <=5.9 PARTIAL THROMBOPLASTIN TIME (BEAKER) (test 42.4 seconds 22.5-36.0 sljx=329) RECOMMENDED COUMADIN/WARFARIN INR THERAPY RANGESSTANDARD DOSE: 2.0 - 3.0 Includes: PROPHYLAXIS forvenous thrombosis, systemic embolization; TREATMENT for venous thrombosis and/or pulmonary embolus.HIGH RISK: Target INR is 2.5-3.5 for patients with mechanical heart valves.PROTHROMBIN [id number] 05:04: 00 Test Item Value Reference Range Comments PROTIME (BEAKER) (test bvkl=525) 20.0 seconds 11.7-14.7 INR (BEAKER) (test hube=625) 1.7 <=5.9 RECOMMENDED COUMADIN/WARFARIN INR THERAPY RANGESSTANDARD DOSE: 2.0 - 3.0 Includes: PROPHYLAXIS forvenous thrombosis, systemic embolization; TREATMENT for venous thrombosis and/or pulmonary embolus.HIGH RISK: Target INR is 2.5-3.5 for patients with mechanical heart valves.POCT-GLUCOSE [id number] 20:49:00 Test Item Value Reference Range Comments POC-GLUCOSE METER (BEAKER) 159 mg/dL 70-110 TESTED AT [facility] [address] (test taoe=7085) [facility] [address] RAD, CHEST, 1 VIEW, NON [id number] 17:43:00Reason for exam:->evaluate for pnaShould this be [...] fracture noted and seems nonacute. Signed: Aristeo Xiongeport Verified Date/Time: 11/11/2018 17: 43:24 Reading Location: [facility] C013W Consult Reading Room [id number] 02:29: 00 Test Item Value Reference Range Comments PROTIME (BEAKER) (test gkxx=987) 19.1 seconds 11.7-14.7 INR (BEAKER) (test rspt=832) 1.6 <=5.9 PARTIAL THROMBOPLASTIN TIME (BEAKER) (test 42.2 seconds 22.5-36.0 fdhs=976) RECOMMENDED COUMADIN/WARFARIN INR THERAPY RANGESSTANDARD DOSE: 2.0 - 3.0 Includes: PROPHYLAXIS forvenous thrombosis, systemic embolization; TREATMENT for venous thrombosis and/or pulmonary embolus.HIGH RISK: Target INR is 2.5-3.5 for patients with mechanical heart valves.[id number] 02:05:00 Test Item Value Reference Range Comments MAGNESIUM (BEAKER) (test tvwk=828) 2.2 mg/dL 1.6-2.6 BASIC METABOLIC [id number] 02:05:00 Test Item Value Reference Range Comments SODIUM (BEAKER) (test 130 meq/L 136-145 ruvh=090) POTASSIUM (BEAKER) (test 4.8 meq/L 3.5-5.1 xtda=889) CHLORIDE (BEAKER) (test 105 meq/L 98-107 msod=846) CO2 (BEAKER) (test 20 meq/L 22-29 eaaw=476) BLOOD UREA NITROGEN 42 mg/dL 7-21 (BEAKER) (test hcua=834) CREATININE (BEAKER) (test 1.89 mg/dL 0.57-1.25 jnyx=051) GLUCOSE RANDOM (BEAKER) 114 mg/dL 70-105 (test mujg=926) CALCIUM (BEAKER) (test 9.2 mg/dL 8.4-10.2 fdtz=596) EGFR (BEAKER) (test 37 mL/min/1.73 sq m ESTIMATED GFR IS NOT bhff=2216) ACCURATE CREATININE CLEARANCE IN PREDICTING GLOMERULAR FILTRATION RATE. ESTIMATED GFR IS NOT APPLICABLE FOR DIALYSIS PATIENTS. Specimen slightly ictericHEPATIC FUNCTION [id number] 02:05:00 Test Item Value Reference Range Comments TOTAL PROTEIN (BEAKER) (test snvl=471) 5.5 gm/dL 6.0-8.3 ALBUMIN (BEAKER) (test yuhi=2128) 2.8 g/dL 3.5-5.0 BILIRUBIN TOTAL (BEAKER) (test lnsq=611) 2.2 mg/dL 0.2-1.2 BILIRUBIN DIRECT (BEAKER) (test ygwn=519) 1.3 mg/dL 0.1-0.5 ALKALINE PHOSPHATASE (BEAKER) (test nahd=031) 125 U/L 40-150 AST (SGOT) (BEAKER) (test poqg=242) 18 U/L 5-34 ALT (SGPT) (BEAKER) (test xogr=711) 10 U/L 6-55 Specimen slightly [id number] 01:56:00 Test Item Value Reference Range Comments AMMONIA (BEAKER) (test kwwa=282) 74 mol/L 18-72 CBC W/PLT COUNT & AUTO [id number] 01:41:00 Test Item Value Reference Range Comments WHITE BLOOD CELL COUNT (BEAKER) (test ympj=481) 4.6 K/ L 3.5-10.5 RED BLOOD CELL COUNT (BEAKER) (test yyub=282) 2.69 M/ L 4.63-6.08 HEMOGLOBIN (BEAKER) (test iifn=021) 8.7 GM/DL 13.7-17.5 HEMATOCRIT (BEAKER) (test fxij=808) 25.0 % 40.1-51.0 MEAN CORPUSCULAR VOLUME (BEAKER) (test slmd=659) 92.9 fL 79.0-92.2 MEAN CORPUSCULAR HEMOGLOBIN (BEAKER) (test 32.3 pg 25.7-32.2 kceo=099) MEAN CORPUSCULAR HEMOGLOBIN CONC (BEAKER) (test 34.8 GM/DL 32.3-36.5 wjsa=420) RED CELL DISTRIBUTION WIDTH (BEAKER) (test 15.0 % 11.6-14.4 irow=531) PLATELET COUNT (BEAKER) (test khse=508) 63 K/CU MM 150-450 MEAN PLATELET VOLUME (BEAKER) (test hoej=442) 9.1 fL 9.4-12.4 NUCLEATED RED BLOOD CELLS (BEAKER) (test 0 /100 WBC 0-0 iuvg=326) NEUTROPHILS RELATIVE PERCENT (BEAKER) (test 65 % hnot=443) LYMPHOCYTES RELATIVE PERCENT (BEAKER) (test 15 % xlhn=009) MONOCYTES RELATIVE PERCENT (BEAKER) (test 15 % wbzw=070) EOSINOPHILS RELATIVE PERCENT (BEAKER) (test 4 % qhnk=167) BASOPHILS RELATIVE PERCENT (BEAKER) (test 0 % nfma=032) NEUTROPHILS ABSOLUTE COUNT (BEAKER) (test 2.97 K/ L 1.78-5.38 ycmh=333) LYMPHOCYTES ABSOLUTE COUNT (BEAKER) (test 0.67 K/ L 1.32-3.57 uegt=746) MONOCYTES ABSOLUTE COUNT (BEAKER) (test wyzj=317) 0.67 K/ L 0.30-0.82 EOSINOPHILS ABSOLUTE COUNT (BEAKER) (test 0.19 K/ L 0.04-0.54 uhbu=108) BASOPHILS ABSOLUTE COUNT (BEAKER) (test mczn=647) 0.01 K/ L 0.01-0.08 IMMATURE GRANULOCYTES-RELATIVE PERCENT (BEAKER) 1 % 0-1 (test yefk=1121) BODY FLUID CULTURE + GRAM [id number] 09:32:00 Test Item Value Reference Range Comments CULTURE (BEAKER) (test azuj=5907) No growth GRAM STAIN RESULT (BEAKER) (test No WBCs tmpt=3197) GRAM STAIN RESULT (BEAKER) (test No organisms seen hzis=76152) POCT-GLUCOSE [id number] 07:52:00 Test Item Value Reference Range Comments POC-GLUCOSE METER (BEAKER) 115 mg/dL 70-110 TESTED AT [facility] [address] (test lhzt=0125) [place] [address] [id number] 05:18:00 Test Item Value Reference Range Comments MAGNESIUM (BEAKER) (test nqoj=068) 1.9 mg/dL 1.6-2.6 COMPREHENSIVE METABOLIC [id number] 05:18:00 Test Item Value Reference Range Comments TOTAL PROTEIN (BEAKER) 5.2 gm/dL 6.0-8.3 (test yueh=412) ALBUMIN (BEAKER) (test 3.4 g/dL 3.5-5.0 mpuw=0806) ALKALINE PHOSPHATASE 113 U/L 40-150 (BEAKER) (test dzdc=953) BILIRUBIN TOTAL (BEAKER) 2.9 mg/dL 0.2-1.2 (test xqyl=027) SODIUM (BEAKER) (test 131 meq/L 136-145 zjxx=867) POTASSIUM (BEAKER) (test 4.0 meq/L 3.5-5.1 mcmu=970) CHLORIDE (BEAKER) (test 101 meq/L 98-107 yzgi=409) CO2 (BEAKER) (test 21 meq/L 22-29 qeqi=583) BLOOD UREA NITROGEN 28 mg/dL 7-21 (BEAKER) (test knyk=870) CREATININE (BEAKER) (test 1.65 mg/dL 0.57-1.25 ntgb=954) GLUCOSE RANDOM (BEAKER) 122 mg/dL 70-105 (test gmws=165) CALCIUM (BEAKER) (test 9.3 mg/dL 8.4-10.2 hjxr=891) AST (SGOT) (BEAKER) (test 15 U/L 5-34 hlaj=272) ALT (SGPT) (BEAKER) (test 8 U/L 6-55 qhrt=474) EGFR (BEAKER) (test 44 mL/min/1.73 sq m ESTIMATED GFR IS NOT oqsw=8993) ACCURATE CREATININE CLEARANCE IN PREDICTING GLOMERULAR FILTRATION RATE. ESTIMATED GFR IS NOT APPLICABLE FOR DIALYSIS PATIENTS. Specimen slightly ictericPROTHROMBIN [id number] 04:48:00 Test Item Value Reference Range Comments PROTIME (BEAKER) (test ynbx=552) 20.9 seconds 11.7-14.7 INR (BEAKER) (test atqe=192) 1.8 <=5.9 RECOMMENDED COUMADIN/WARFARIN INR THERAPY RANGESSTANDARD DOSE: 2.0 - 3.0 Includes: PROPHYLAXIS forvenous thrombosis, systemic embolization; TREATMENT for venous thrombosis and/or pulmonary embolus.HIGH RISK: Target INR is 2.5-3.5 for patients with mechanical heart valves.CBC W/PLT COUNT & AUTO [id number] 04:45:00 Test Item Value Reference Range Comments WHITE BLOOD CELL COUNT (BEAKER) (test qciz=589) 3.4 K/ L 3.5-10.5 RED BLOOD CELL COUNT (BEAKER) (test iufv=787) 2.55 M/ L 4.63-6.08 HEMOGLOBIN (BEAKER) (test tyqx=835) 8.1 GM/DL 13.7-17.5 HEMATOCRIT (BEAKER) (test jopr=752) 24.0 % 40.1-51.0 MEAN CORPUSCULAR VOLUME (BEAKER) (test ijps=276) 94.1 fL 79.0-92.2 MEAN CORPUSCULAR HEMOGLOBIN (BEAKER) (test 31.8 pg 25.7-32.2 dusl=090) MEAN CORPUSCULAR HEMOGLOBIN CONC (BEAKER) (test 33.8 GM/DL 32.3-36.5 uqbp=325) RED CELL DISTRIBUTION WIDTH (BEAKER) (test 15.8 % 11.6-14.4 dmiv=883) PLATELET COUNT (BEAKER) (test zniz=257) 41 K/CU MM 150-450 MEAN PLATELET VOLUME (BEAKER) (test wtoe=558) 10.0 fL 9.4-12.4 NUCLEATED RED BLOOD CELLS (BEAKER) (test 0 /100 WBC 0-0 psxd=470) NEUTROPHILS RELATIVE PERCENT (BEAKER) (test 63 % abop=497) LYMPHOCYTES RELATIVE PERCENT (BEAKER) (test 19 % yzrn=655) MONOCYTES RELATIVE PERCENT (BEAKER) (test 16 % zvfq=313) EOSINOPHILS RELATIVE PERCENT (BEAKER) (test 2 % kyqb=623) BASOPHILS RELATIVE PERCENT (BEAKER) (test 0 % pjmk=207) NEUTROPHILS ABSOLUTE COUNT (BEAKER) (test 2.13 K/ L 1.78-5.38 tict=872) LYMPHOCYTES ABSOLUTE COUNT (BEAKER) (test 0.62 K/ L 1.32-3.57 unqy=841) MONOCYTES ABSOLUTE COUNT (BEAKER) (test elho=547) 0.52 K/ L 0.30-0.82 EOSINOPHILS ABSOLUTE COUNT (BEAKER) (test 0.08 K/ L 0.04-0.54 mqiu=880) BASOPHILS ABSOLUTE COUNT (BEAKER) (test vqpy=620) 0.00 K/ L 0.01-0.08 IMMATURE GRANULOCYTES-RELATIVE PERCENT (BEAKER) 0 % 0-1 (test ptma=3487) POCT-GLUCOSE [id number] 21:35:00 Test Item Value Reference Range Comments POC-GLUCOSE METER (BEAKER) 215 mg/dL 70-110 TESTED AT [address] (test phqi=7143) [place] [address] POCT-GLUCOSE [id number] 18:17:00 Test Item Value Reference Range Comments POC-GLUCOSE METER (BEAKER) 149 mg/dL 70-110 TESTED AT [address] (test twub=6825) [place] [id number] COMPREHENSIVE METABOLIC [id number] 07:34:00 Test Item Value Reference Range Comments TOTAL PROTEIN (BEAKER) 4.7 gm/dL 6.0-8.3 Specimen slightly (test djex=826) hemolyzed ALBUMIN (BEAKER) (test 3.0 g/dL 3.5-5.0 Specimen slightly tmig=8527) hemolyzed ALKALINE PHOSPHATASE 107 U/L 40-150 (BEAKER) (test rasj=198) BILIRUBIN TOTAL (BEAKER) 3.1 mg/dL 0.2-1.2 Specimen slightly (test vdtz=501) hemolyzed SODIUM (BEAKER) (test 125 meq/L 136-145 brir=123) POTASSIUM (BEAKER) (test 4.9 meq/L 3.5-5.1 Specimen slightly ifxv=339) hemolyzed CHLORIDE (BEAKER) (test 96 meq/L 98-107 dzom=878) CO2 (BEAKER) (test 24 meq/L 22-29 whme=816) BLOOD UREA NITROGEN 30 mg/dL 7-21 (BEAKER) (test eahd=535) CREATININE (BEAKER) (test 1.61 mg/dL 0.57-1.25 Specimen slightly eqxj=167) hemolyzed GLUCOSE RANDOM (BEAKER) 127 mg/dL 70-105 (test bcoo=389) CALCIUM (BEAKER) (test 8.6 mg/dL 8.4-10.2 xmcz=793) AST (SGOT) (BEAKER) (test 17 U/L 5-34 Specimen slightly fcth=544) hemolyzed ALT (SGPT) (BEAKER) (test < U/L 6-55 Specimen slightly awnh=687) hemolyzed EGFR (BEAKER) (test 45 mL/min/1.73 sq m ESTIMATED GFR IS NOT ktwy=7574) ACCURATE CREATININE CLEARANCE IN PREDICTING GLOMERULAR FILTRATION RATE. ESTIMATED GFR IS NOT APPLICABLE FOR DIALYSIS PATIENTS. Specimen slightly [id number] 06:49:00 Test Item Value Reference Range Comments PHOSPHORUS (BEAKER) (test iffc=270) 3.0 mg/dL 2.3-4.7 [id number] 06:49:00 Test Item Value Reference Range Comments MAGNESIUM (BEAKER) (test wcts=547) 2.0 mg/dL 1.6-2.6 PROTHROMBIN [id number] 06:39:00 Test Item Value Reference Range Comments PROTIME (BEAKER) (test laff=278) 23.0 seconds 11.7-14.7 INR (BEAKER) (test vuqe=374) 2.0 <=5.9 RECOMMENDED COUMADIN/WARFARIN INR THERAPY RANGESSTANDARD DOSE: 2.0 - 3.0 Includes: PROPHYLAXIS forvenous thrombosis, systemic embolization; TREATMENT for venous thrombosis and/or pulmonary embolus.HIGH RISK: Target INR is 2.5-3.5 for patients with mechanical heart valves.CBC W/PLT COUNT & AUTO [id number] 06:37:00 Test Item Value Reference Range Comments WHITE BLOOD CELL COUNT (BEAKER) (test givx=945) 3.3 K/ L 3.5-10.5 RED BLOOD CELL COUNT (BEAKER) (test opdf=248) 2.43 M/ L 4.63-6.08 HEMOGLOBIN (BEAKER) (test djht=856) 7.8 GM/DL 13.7-17.5 HEMATOCRIT (BEAKER) (test frke=428) 22.7 % 40.1-51.0 MEAN CORPUSCULAR VOLUME (BEAKER) (test xpxk=426) 93.4 fL 79.0-92.2 MEAN CORPUSCULAR HEMOGLOBIN (BEAKER) (test 32.1 pg 25.7-32.2 hxms=576) MEAN CORPUSCULAR HEMOGLOBIN CONC (BEAKER) (test 34.4 GM/DL 32.3-36.5 ahvh=988) RED CELL DISTRIBUTION WIDTH (BEAKER) (test 15.7 % 11.6-14.4 zexc=119) PLATELET COUNT (BEAKER) (test egie=641) 37 K/CU MM 150-450 MEAN PLATELET VOLUME (BEAKER) (test qhri=229) 9.6 fL 9.4-12.4 NUCLEATED RED BLOOD CELLS (BEAKER) (test 0 /100 WBC 0-0 ybdh=316) NEUTROPHILS RELATIVE PERCENT (BEAKER) (test 70 % sylo=962) LYMPHOCYTES RELATIVE PERCENT (BEAKER) (test 16 % aqzv=229) MONOCYTES RELATIVE PERCENT (BEAKER) (test 11 % gfjb=584) EOSINOPHILS RELATIVE PERCENT (BEAKER) (test 2 % ppjs=830) BASOPHILS RELATIVE PERCENT (BEAKER) (test 0 % fikt=730) NEUTROPHILS ABSOLUTE COUNT (BEAKER) (test 2.29 K/ L 1.78-5.38 hteh=130) LYMPHOCYTES ABSOLUTE COUNT (BEAKER) (test 0.51 K/ L 1.32-3.57 craa=256) MONOCYTES ABSOLUTE COUNT (BEAKER) (test nvol=654) 0.37 K/ L 0.30-0.82 EOSINOPHILS ABSOLUTE COUNT (BEAKER) (test 0.07 K/ L 0.04-0.54 fvpv=329) BASOPHILS ABSOLUTE COUNT (BEAKER) (test wouo=594) 0.01 K/ L 0.01-0.08 IMMATURE GRANULOCYTES-RELATIVE PERCENT (BEAKER) 0 % 0-1 (test bfac=7829) CALCIUM, [id number] 06:36:00 Test Item Value Reference Range Comments CALCIUM IONIZED (BEAKER) (test ccip=136) 1.00 mmol/L 1.12-1.27 PH, BLOOD (BEAKER) (test aiua=4903) 7.53 POCT-GLUCOSE [id number] 22:31:00 Test Item Value Reference Range Comments POC-GLUCOSE METER (BEAKER) 185 mg/dL 70-110 TESTED AT [address] (test avxu=9318) [facility] [id number] POCT-GLUCOSE [id number] 16:03:00 Test Item Value Reference Range Comments POC-GLUCOSE METER (BEAKER) 166 mg/dL 70-110 TESTED AT [place] [id number] [facility] (test ajmd=4226) [facility] [address] POCT-GLUCOSE [id number] 12:05:00 Test Item Value Reference Range Comments POC-GLUCOSE METER (BEAKER) 175 mg/dL 70-110 TESTED AT [address] (test ofzi=1579) [facility] [address] POCT-GLUCOSE [id number] 08:02:00 Test Item Value Reference Range Comments POC-GLUCOSE METER (BEAKER) 162 mg/dL 70-110 TESTED AT [address] (test wphl=0591) [facility] [id number] [id number] 03:52:00 Test Item Value Reference Range Comments MAGNESIUM (BEAKER) (test 2.1 mg/dL 1.6-2.6 Specimen slightly hemolyzed prto=043) [id number] 03:52:00 Test Item Value Reference Range Comments PHOSPHORUS (BEAKER) (test 3.0 mg/dL 2.3-4.7 Specimen slightly hemolyzed xhrm=460) COMPREHENSIVE METABOLIC [id number] 03:52:00 Test Item Value Reference Range Comments TOTAL PROTEIN (BEAKER) 4.9 gm/dL 6.0-8.3 Specimen slightly (test wyrj=668) hemolyzed ALBUMIN (BEAKER) (test 3.2 g/dL 3.5-5.0 Specimen slightly embw=1709) hemolyzed ALKALINE PHOSPHATASE 109 U/L 40-150 (BEAKER) (test rhsy=438) BILIRUBIN TOTAL (BEAKER) 2.7 mg/dL 0.2-1.2 Specimen slightly (test gzjw=165) hemolyzed SODIUM (BEAKER) (test 125 meq/L 136-145 etcj=663) POTASSIUM (BEAKER) (test 4.7 meq/L 3.5-5.1 Specimen slightly clyn=033) hemolyzed CHLORIDE (BEAKER) (test 96 meq/L 98-107 aius=611) CO2 (BEAKER) (test 23 meq/L 22-29 iaje=375) BLOOD UREA NITROGEN 27 mg/dL 7-21 (BEAKER) (test woaw=173) CREATININE (BEAKER) (test 1.86 mg/dL 0.57-1.25 Specimen slightly sqht=983) hemolyzed GLUCOSE RANDOM (BEAKER) 164 mg/dL 70-105 (test stnm=487) CALCIUM (BEAKER) (test 8.4 mg/dL 8.4-10.2 ixqv=444) AST (SGOT) (BEAKER) (test 17 U/L 5-34 Specimen slightly jxed=195) hemolyzed ALT (SGPT) (BEAKER) (test 6 U/L 6-55 Specimen slightly ewbd=478) hemolyzed EGFR (BEAKER) (test 38 mL/min/1.73 sq m ESTIMATED GFR IS NOT smbt=8311) ACCURATE CREATININE CLEARANCE IN PREDICTING GLOMERULAR FILTRATION RATE. ESTIMATED GFR IS NOT APPLICABLE FOR DIALYSIS PATIENTS. Specimen slightly ictericCALCIUM, [id number] 03:13:00 Test Item Value Reference Range Comments CALCIUM IONIZED (BEAKER) (test hnss=017) 0.94 mmol/L 1.12-1.27 PH, BLOOD (BEAKER) (test guuz=1543) 7.55 PROTHROMBIN [id number] 03:10:00 Test Item Value Reference Range Comments PROTIME (BEAKER) (test dcvk=550) 22.6 seconds 11.7-14.7 INR (BEAKER) (test hpam=530) 2.0 <=5.9 RECOMMENDED COUMADIN/WARFARIN INR THERAPY RANGESSTANDARD DOSE: 2.0 - 3.0 Includes: PROPHYLAXIS forvenous thrombosis, systemic embolization; TREATMENT for venous thrombosis and/or pulmonary embolus.HIGH RISK: Target INR is 2.5-3.5 for patients with mechanical heart valves.CBC W/PLT COUNT & AUTO [id number] 03:03:00 Test Item Value Reference Range Comments WHITE BLOOD CELL COUNT (BEAKER) (test xbvj=836) 3.4 K/ L 3.5-10.5 RED BLOOD CELL COUNT (BEAKER) (test ernw=880) 2.46 M/ L 4.63-6.08 HEMOGLOBIN (BEAKER) (test dmxy=520) 7.8 GM/DL 13.7-17.5 HEMATOCRIT (BEAKER) (test goqk=738) 23.5 % 40.1-51.0 MEAN CORPUSCULAR VOLUME (BEAKER) (test popy=537) 95.5 fL 79.0-92.2 MEAN CORPUSCULAR HEMOGLOBIN (BEAKER) (test 31.7 pg 25.7-32.2 abaw=462) MEAN CORPUSCULAR HEMOGLOBIN CONC (BEAKER) (test 33.2 GM/DL 32.3-36.5 kdoe=893) RED CELL DISTRIBUTION WIDTH (BEAKER) (test 15.6 % 11.6-14.4 nbaf=023) PLATELET COUNT (BEAKER) (test hesa=365) 44 K/CU MM 150-450 MEAN PLATELET VOLUME (BEAKER) (test aico=521) 10.6 fL 9.4-12.4 NUCLEATED RED BLOOD CELLS (BEAKER) (test 0 /100 WBC 0-0 owin=857) NEUTROPHILS RELATIVE PERCENT (BEAKER) (test 79 % ceos=033) LYMPHOCYTES RELATIVE PERCENT (BEAKER) (test 12 % orgq=290) MONOCYTES RELATIVE PERCENT (BEAKER) (test 8 % sgva=748) EOSINOPHILS RELATIVE PERCENT (BEAKER) (test 0 % whjk=737) BASOPHILS RELATIVE PERCENT (BEAKER) (test 0 % wapq=696) NEUTROPHILS ABSOLUTE COUNT (BEAKER) (test 2.67 K/ L 1.78-5.38 cazd=597) LYMPHOCYTES ABSOLUTE COUNT (BEAKER) (test 0.41 K/ L 1.32-3.57 zxhz=796) MONOCYTES ABSOLUTE COUNT (BEAKER) (test axhx=223) 0.27 K/ L 0.30-0.82 EOSINOPHILS ABSOLUTE COUNT (BEAKER) (test 0.01 K/ L 0.04-0.54 gden=695) BASOPHILS ABSOLUTE COUNT (BEAKER) (test mcdu=695) 0.01 K/ L 0.01-0.08 IMMATURE GRANULOCYTES-RELATIVE PERCENT (BEAKER) 0 % 0-1 (test ogrh=4298) POCT-GLUCOSE [id number] 22:50:00 Test Item Value Reference Range Comments POC-GLUCOSE METER (BEAKER) 199 mg/dL 70-110 TESTED AT [facility] [address] [facility] (test ejbm=3900) [facility] [address] BODY FLUID CELL COUNT WITH [id number] 21:09:00 Test Item Value Reference Range Comments APPEARANCE FLUID (BEAKER) (test mivy=798) Clear Clear COLOR FLUID (BEAKER) (test qdsf=192) Yellow Colorless, Straw RBC FLUID (BEAKER) (test kuyk=832) 140 /cu mm <=1 ADJUSTED WBC FLUID (BEAKER) (test owab=2707) 70 /cu mm <=5 LINING CELLS (BEAKER) (test deow=5338) 0 /cu mm <=1 NEUTROPHILS FLUID (BEAKER) (test aunw=9899) 5 % LYMPHS FLUID (BEAKER) (test qyfi=624) 18 % MONO/MACROPHAGE FLUID (BEAKER) (test mhsa=645) 77 % EOSINOPHILS FLUID (BEAKER) (test kldi=511) 0 % BASO FLUID (BEAKER) (test ahzc=251) 0 % CONTAINER BODY FLUID (BEAKER) (test rohx=6489) EDTA Tube CORTISOL,60 [id number] 20:10:00 Test Item Value Reference Range Comments CORTISOL BASELINE NETWORKED (BEAKER) (test 5.6 mcg/dL qbli=2088) CORTISOL 30 MINUTE NETWORKED (BEAKER) (test 13.7 mcg/dL yorq=0069) CORTISOL, 60 MINUTE (BEAKER) (test hssg=6439) 17.1 ug/dL ACTH STIMULATION TEST INTERPRETATION GUIDELINES(Synonyms: [...] study by Mindy et al (NEVAEH 2000,283( 8):4358-76), the ACTH Stimulation Test provides important prognostic [...] serum cortisollevel 60 minutes after cosyntropin administration.CORTISOL,30 [id number] 19:45:00 Test Item Value Reference Range Comments CORTISOL BASELINE NETWORKED (BEAKER) (test 5.6 mcg/dL ppbs=2266) CORTISOL, 30 MINUTE (BEAKER) (test smwt=4929) 13.7 ug/dL ACTH STIMULATION TEST INTERPRETATION GUIDELINES(Synonyms: [...] serum cortisollevel 60 minutes after cosyntropin administration.U/S, [id number] 19:13:00Reason for exam:->therapeuticFINAL REPORT PROCEDURE: Ultrasound- guided paracentesis. INDICATION: Ascites. DESCRIPTION: After obtaining informed written consent, ultrasound scan of the abdomen identified ascites in the right lower quadrant. The overlying skin was prepped and draped in the usual, sterile fashion and local 1% lidocaine anesthesia was administered. A 5 [place] catheter was advanced into the peritoneal cavity and 6000 mL of area fluid was removed. The catheter was removed without immediate complication. Samples were sent for analysis. IMPRESSION:Uncomplicated ultrasound-guided paracentesis with 6000 mL of fluid removed. Signed: Stuart Dupree MDReport Verified Date/Time: 09/08/2018 19 :13:16 Reading Location: [address] Ultrasound Reading Room Electronically signed by: Claudia WEAVER 09/08/2018 07:13 PMCORTISOL, [id number] 18:54:00 Test Item Value Reference Range Comments CORTISOL, BASELINE (BEAKER) (test qyzq=6063) 5.6 ug/dL ACTH STIMULATION TEST INTERPRETATION GUIDELINES(Synonyms: [...] serum cortisollevel 60 minutes after cosyntropin administration.POCT-GLUCOSE [id number] 12:49:00 Test Item Value Reference Range Comments POC-GLUCOSE METER (BEAKER) 184 mg/dL 70-110 TESTED AT [address] (test kkim=4284) [facility] [address] POCT-GLUCOSE [id number] 07:56:00 Test Item Value Reference Range Comments POC-GLUCOSE METER (BEAKER) 174 mg/dL 70-110 TESTED AT [address] (test uilq=2997) [facility] [address] B-TYPE NATRIURETIC FACTOR (BNP)2018-09-08 05:20:00 Test Item Value Reference Range Comments B-TYPE NATRIURETIC PEPTIDE (BEAKER) (test 900 pg/mL 0-100 axns=777) [id number] 05:15:00 Test Item Value Reference Range Comments PHOSPHORUS (BEAKER) (test fyvm=254) 3.2 mg/dL 2.3-4.7 [id number] 05:15:00 Test Item Value Reference Range Comments MAGNESIUM (BEAKER) (test waht=895) 2.1 mg/dL 1.6-2.6 COMPREHENSIVE METABOLIC [id number] 05:15:00 Test Item Value Reference Range Comments TOTAL PROTEIN (BEAKER) 4.9 gm/dL 6.0-8.3 (test awyg=740) ALBUMIN (BEAKER) (test 3.2 g/dL 3.5-5.0 otnk=9715) ALKALINE PHOSPHATASE 109 U/L 40-150 (BEAKER) (test wsam=608) BILIRUBIN TOTAL (BEAKER) 2.7 mg/dL 0.2-1.2 (test navj=230) SODIUM (BEAKER) (test 128 meq/L 136-145 mbjy=147) POTASSIUM (BEAKER) (test 3.9 meq/L 3.5-5.1 iwnt=012) CHLORIDE (BEAKER) (test 98 meq/L 98-107 udjh=706) CO2 (BEAKER) (test 23 meq/L 22-29 dear=043) BLOOD UREA NITROGEN 27 mg/dL 7-21 (BEAKER) (test ntdf=357) CREATININE (BEAKER) (test 2.17 mg/dL 0.57-1.25 lqtk=795) GLUCOSE RANDOM (BEAKER) 136 mg/dL 70-105 (test fwjr=601) CALCIUM (BEAKER) (test 8.6 mg/dL 8.4-10.2 ffjx=833) AST (SGOT) (BEAKER) (test 15 U/L 5-34 jekq=005) ALT (SGPT) (BEAKER) (test 7 U/L 6-55 wuei=605) EGFR (BEAKER) (test 32 mL/min/1.73 sq m ESTIMATED GFR IS NOT djek=7663) ACCURATE CREATININE CLEARANCE IN PREDICTING GLOMERULAR FILTRATION RATE. ESTIMATED GFR IS NOT APPLICABLE FOR DIALYSIS PATIENTS. Specimen slightly ictericPROTHROMBIN [id number] 05:01:00 Test Item Value Reference Range Comments PROTIME (BEAKER) (test stju=184) 22.0 seconds 11.7-14.7 INR (BEAKER) (test kwlr=678) 1.9 <=5.9 RECOMMENDED COUMADIN/WARFARIN INR THERAPY RANGESSTANDARD DOSE: 2.0 - 3.0 Includes: PROPHYLAXIS forvenous thrombosis, systemic embolization; TREATMENT for venous thrombosis and/or pulmonary embolus.HIGH RISK: Target INR is 2.5-3.5 for patients with mechanical heart valves.CBC W/PLT COUNT & AUTO [id number] 04:55:00 Test Item Value Reference Range Comments WHITE BLOOD CELL COUNT (BEAKER) (test okrb=729) 4.3 K/ L 3.5-10.5 RED BLOOD CELL COUNT (BEAKER) (test nxfg=752) 2.46 M/ L 4.63-6.08 HEMOGLOBIN (BEAKER) (test jnlw=282) 7.9 GM/DL 13.7-17.5 HEMATOCRIT (BEAKER) (test pzbz=615) 23.3 % 40.1-51.0 MEAN CORPUSCULAR VOLUME (BEAKER) (test xajq=630) 94.7 fL 79.0-92.2 MEAN CORPUSCULAR HEMOGLOBIN (BEAKER) (test 32.1 pg 25.7-32.2 ntlw=115) MEAN CORPUSCULAR HEMOGLOBIN CONC (BEAKER) (test 33.9 GM/DL 32.3-36.5 micy=281) RED CELL DISTRIBUTION WIDTH (BEAKER) (test 15.6 % 11.6-14.4 uprz=369) PLATELET COUNT (BEAKER) (test oyxn=891) 43 K/CU MM 150-450 MEAN PLATELET VOLUME (BEAKER) (test tamf=337) 9.6 fL 9.4-12.4 NUCLEATED RED BLOOD CELLS (BEAKER) (test 0 /100 WBC 0-0 olpk=368) NEUTROPHILS RELATIVE PERCENT (BEAKER) (test 63 % cnlr=141) LYMPHOCYTES RELATIVE PERCENT (BEAKER) (test 13 % bnzq=150) MONOCYTES RELATIVE PERCENT (BEAKER) (test 19 % ktsd=158) EOSINOPHILS RELATIVE PERCENT (BEAKER) (test 5 % egxu=158) BASOPHILS RELATIVE PERCENT (BEAKER) (test 0 % ewzq=514) NEUTROPHILS ABSOLUTE COUNT (BEAKER) (test 2.72 K/ L 1.78-5.38 upjw=296) LYMPHOCYTES ABSOLUTE COUNT (BEAKER) (test 0.55 K/ L 1.32-3.57 bizj=405) MONOCYTES ABSOLUTE COUNT (BEAKER) (test hmhf=865) 0.81 K/ L 0.30-0.82 EOSINOPHILS ABSOLUTE COUNT (BEAKER) (test 0.21 K/ L 0.04-0.54 lrdi=919) BASOPHILS ABSOLUTE COUNT (BEAKER) (test bqqo=814) 0.01 K/ L 0.01-0.08 IMMATURE GRANULOCYTES-RELATIVE PERCENT (BEAKER) 0 % 0-1 (test qhsn=1246) POCT-GLUCOSE [id number] 23:33:00 Test Item Value Reference Range Comments POC-GLUCOSE METER (BEAKER) 156 mg/dL 70-110 TESTED AT [address] (test wzgx=1095) [place] [address] POCT-GLUCOSE [id number] 18:09:00 Test Item Value Reference Range Comments POC-GLUCOSE METER (BEAKER) 170 mg/dL 70-110 TESTED AT [address] (test cjxs=3412) [place] [address] POCT-GLUCOSE [id number] 12:01:00 Test Item Value Reference Range Comments POC-GLUCOSE METER (BEAKER) 181 mg/dL 70-110 TESTED AT [address] (test quau=1602) [place] [address] PROTHROMBIN [id number] 08:17:00 Test Item Value Reference Range Comments PROTIME (BEAKER) (test wkbw=596) 21.9 seconds 11.7-14.7 INR (BEAKER) (test nmec=062) 1.9 <=5.9 RECOMMENDED COUMADIN/WARFARIN INR THERAPY RANGESSTANDARD DOSE: 2.0 - 3.0 Includes: PROPHYLAXIS forvenous thrombosis, systemic embolization; TREATMENT for venous thrombosis and/or pulmonary embolus.HIGH RISK: Target INR is 2.5-3.5 for patients with mechanical heart valves.POCT-GLUCOSE [id number] 08:07:00 Test Item Value Reference Range Comments POC-GLUCOSE METER (BEAKER) 205 mg/dL 70-110 TESTED AT [address] (test zekk=1763) [place] [id number] COMPREHENSIVE METABOLIC [id number] 07:29:00 Test Item Value Reference Range Comments TOTAL PROTEIN (BEAKER) 4.9 gm/dL 6.0-8.3 (test oqjb=165) ALBUMIN (BEAKER) (test 3.3 g/dL 3.5-5.0 nnpw=9548) ALKALINE PHOSPHATASE 106 U/L 40-150 (BEAKER) (test stzb=588) BILIRUBIN TOTAL (BEAKER) 2.6 mg/dL 0.2-1.2 (test emzd=425) SODIUM (BEAKER) (test 129 meq/L 136-145 truk=744) POTASSIUM (BEAKER) (test 4.9 meq/L 3.5-5.1 kfvs=998) CHLORIDE (BEAKER) (test 98 meq/L 98-107 btap=184) CO2 (BEAKER) (test 23 meq/L 22-29 zvic=163) BLOOD UREA NITROGEN 28 mg/dL 7-21 (BEAKER) (test kkjg=734) CREATININE (BEAKER) (test 2.31 mg/dL 0.57-1.25 tsax=886) GLUCOSE RANDOM (BEAKER) 172 mg/dL 70-105 (test rskt=801) CALCIUM (BEAKER) (test 8.5 mg/dL 8.4-10.2 wary=363) AST (SGOT) (BEAKER) (test 15 U/L 5-34 otkp=638) ALT (SGPT) (BEAKER) (test 6 U/L 6-55 pzsw=927) EGFR (BEAKER) (test 30 mL/min/1.73 sq m ESTIMATED GFR IS NOT vzxp=8388) ACCURATE CREATININE CLEARANCE IN PREDICTING GLOMERULAR FILTRATION RATE. ESTIMATED GFR IS NOT APPLICABLE FOR DIALYSIS PATIENTS. Specimen slightly ictericCBC W/PLT COUNT & AUTO [id number] 07:11 :00 Test Item Value Reference Range Comments WHITE BLOOD CELL COUNT (BEAKER) (test wgoc=637) 4.5 K/ L 3.5-10.5 RED BLOOD CELL COUNT (BEAKER) (test fehf=791) 2.47 M/ L 4.63-6.08 HEMOGLOBIN (BEAKER) (test mlfd=528) 7.8 GM/DL 13.7-17.5 HEMATOCRIT (BEAKER) (test abmi=114) 23.3 % 40.1-51.0 MEAN CORPUSCULAR VOLUME (BEAKER) (test fecr=761) 94.3 fL 79.0-92.2 MEAN CORPUSCULAR HEMOGLOBIN (BEAKER) (test 31.6 pg 25.7-32.2 yaju=717) MEAN CORPUSCULAR HEMOGLOBIN CONC (BEAKER) (test 33.5 GM/DL 32.3-36.5 pjeu=712) RED CELL DISTRIBUTION WIDTH (BEAKER) (test 15.4 % 11.6-14.4 pfej=952) PLATELET COUNT (BEAKER) (test zriz=069) 43 K/CU MM 150-450 MEAN PLATELET VOLUME (BEAKER) (test bfgn=078) 8.7 fL 9.4-12.4 NUCLEATED RED BLOOD CELLS (BEAKER) (test 0 /100 WBC 0-0 mgnf=158) NEUTROPHILS RELATIVE PERCENT (BEAKER) (test 64 % bxes=986) LYMPHOCYTES RELATIVE PERCENT (BEAKER) (test 11 % rkhc=979) MONOCYTES RELATIVE PERCENT (BEAKER) (test 20 % mtgu=098) EOSINOPHILS RELATIVE PERCENT (BEAKER) (test 4 % grtl=078) BASOPHILS RELATIVE PERCENT (BEAKER) (test 0 % btuv=372) NEUTROPHILS ABSOLUTE COUNT (BEAKER) (test 2.86 K/ L 1.78-5.38 fash=272) LYMPHOCYTES ABSOLUTE COUNT (BEAKER) (test 0.49 K/ L 1.32-3.57 fldt=986) MONOCYTES ABSOLUTE COUNT (BEAKER) (test uzuk=837) 0.90 K/ L 0.30-0.82 EOSINOPHILS ABSOLUTE COUNT (BEAKER) (test 0.18 K/ L 0.04-0.54 qhvj=269) BASOPHILS ABSOLUTE COUNT (BEAKER) (test bysy=046) 0.02 K/ L 0.01-0.08 IMMATURE GRANULOCYTES-RELATIVE PERCENT (BEAKER) 0 % 0-1 (test ixio=5986) POCT-GLUCOSE [id number] 22:31:00 Test Item Value Reference Range Comments POC-GLUCOSE METER (BEAKER) 161 mg/dL 70-110 TESTED AT [address] (test urvg=1466) [facility] [address] POCT-GLUCOSE [id number] 16:31:00 Test Item Value Reference Range Comments POC-GLUCOSE METER (BEAKER) 135 mg/dL 70-110 TESTED AT [address] (test iril=3108) [place] [id number] POCT-GLUCOSE [id number] 12:16:00 Test Item Value Reference Range Comments POC-GLUCOSE METER (BEAKER) 144 mg/dL 70-110 TESTED AT [address] (test pdhs=0851) [place] [id number] POCT-GLUCOSE [id number] 07:53:00 Test Item Value Reference Range Comments POC-GLUCOSE METER (BEAKER) 93 mg/dL 70-110 TESTED AT [facility] [address] [facility] (test wjii=2739) [facility] [address] COMPREHENSIVE METABOLIC [id number] 06:55:00 Test Item Value Reference Range Comments TOTAL PROTEIN (BEAKER) 4.8 gm/dL 6.0-8.3 (test ucms=536) ALBUMIN (BEAKER) (test 3.3 g/dL 3.5-5.0 ovuj=8690) ALKALINE PHOSPHATASE 103 U/L 40-150 (BEAKER) (test pysn=962) BILIRUBIN TOTAL (BEAKER) 2.7 mg/dL 0.2-1.2 (test tsav=595) SODIUM (BEAKER) (test 125 meq/L 136-145 gwic=686) POTASSIUM (BEAKER) (test 4.6 meq/L 3.5-5.1 dmcl=291) CHLORIDE (BEAKER) (test 96 meq/L 98-107 quwx=069) CO2 (BEAKER) (test 22 meq/L 22-29 pulm=500) BLOOD UREA NITROGEN 30 mg/dL 7-21 (BEAKER) (test cqnt=158) CREATININE (BEAKER) (test 2.01 mg/dL 0.57-1.25 nmde=879) GLUCOSE RANDOM (BEAKER) 88 mg/dL 70-105 (test ufyr=994) CALCIUM (BEAKER) (test 8.5 mg/dL 8.4-10.2 yoqq=442) AST (SGOT) (BEAKER) (test 17 U/L 5-34 xmqj=008) ALT (SGPT) (BEAKER) (test 7 U/L 6-55 patf=772) EGFR (BEAKER) (test 35 mL/min/1.73 sq m ESTIMATED GFR IS NOT ayte=2024) ACCURATE CREATININE CLEARANCE IN PREDICTING GLOMERULAR FILTRATION RATE. ESTIMATED GFR IS NOT APPLICABLE FOR DIALYSIS PATIENTS. Specimen slightly ictericPROTHROMBIN [id number] 06:10:00 Test Item Value Reference Range Comments PROTIME (BEAKER) (test jbnc=937) 23.2 seconds 11.7-14.7 INR (BEAKER) (test ussd=369) 2.1 <=5.9 RECOMMENDED COUMADIN/WARFARIN INR THERAPY RANGESSTANDARD DOSE: 2.0 - 3.0 Includes: PROPHYLAXIS forvenous thrombosis, systemic embolization; TREATMENT for venous thrombosis and/or pulmonary embolus.HIGH RISK: Target INR is 2.5-3.5 for patients with mechanical heart valves.POCT-GLUCOSE [id number] 22:42:00 Test Item Value Reference Range Comments POC-GLUCOSE METER (BEAKER) 124 mg/dL 70-110 TESTED AT [address] (test hnod=4154) [facility] [address] POCT-GLUCOSE [id number] 17:04:00 Test Item Value Reference Range Comments POC-GLUCOSE METER (BEAKER) 86 mg/dL 70-110 TESTED AT [address] (test ubmv=3751) [facility] [address] POCT-GLUCOSE [id number] 12:08:00 Test Item Value Reference Range Comments POC-GLUCOSE METER (BEAKER) 159 mg/dL 70-110 TESTED AT [address] (test shla=8743) [facility] [address] [id number] 08:39:00 Test Item Value Reference Range Comments PHOSPHORUS (BEAKER) (test ghek=548) 3.9 mg/dL 2.3-4.7 [id number] 08:39:00 Test Item Value Reference Range Comments MAGNESIUM (BEAKER) (test kbis=772) 2.1 mg/dL 1.6-2.6 COMPREHENSIVE METABOLIC [id number] 08:39:00 Test Item Value Reference Range Comments TOTAL PROTEIN (BEAKER) 5.2 gm/dL 6.0-8.3 (test mhpz=562) ALBUMIN (BEAKER) (test 3.5 g/dL 3.5-5.0 xach=1716) ALKALINE PHOSPHATASE 110 U/L 40-150 (BEAKER) (test qaly=555) BILIRUBIN TOTAL (BEAKER) 2.4 mg/dL 0.2-1.2 (test qzqs=340) SODIUM (BEAKER) (test 122 meq/L 136-145 dpxq=092) POTASSIUM (BEAKER) (test 4.5 meq/L 3.5-5.1 ycgn=099) CHLORIDE (BEAKER) (test 94 meq/L 98-107 rlwa=483) CO2 (BEAKER) (test 20 meq/L 22-29 vvqm=495) BLOOD UREA NITROGEN 31 mg/dL 7-21 (BEAKER) (test vjva=225) CREATININE (BEAKER) (test 1.94 mg/dL 0.57-1.25 vthd=313) GLUCOSE RANDOM (BEAKER) 127 mg/dL 70-105 (test hctx=379) CALCIUM (BEAKER) (test 8.6 mg/dL 8.4-10.2 hrdr=959) AST (SGOT) (BEAKER) (test 17 U/L 5-34 cfpd=021) ALT (SGPT) (BEAKER) (test 8 U/L 6-55 vblm=067) EGFR (BEAKER) (test 36 mL/min/1.73 sq m ESTIMATED GFR IS NOT ycju=0859) ACCURATE CREATININE CLEARANCE IN PREDICTING GLOMERULAR FILTRATION RATE. ESTIMATED GFR IS NOT APPLICABLE FOR DIALYSIS PATIENTS. Specimen slightly ictericPOCT-GLUCOSE [id number] 07:49:00 Test Item Value Reference Range Comments POC-GLUCOSE METER (BEAKER) 132 mg/dL 70-110 TESTED AT [address] (test txsl=3058) [facility] [address] CALCIUM, [id number] 06:35:00 Test Item Value Reference Range Comments CALCIUM IONIZED (BEAKER) (test galt=898) 1.08 mmol/L 1.12-1.27 PH, BLOOD (BEAKER) (test ahzl=0557) 7.39 CBC W/PLT COUNT & AUTO [id number] 05:56:00 Test Item Value Reference Range Comments WHITE BLOOD CELL COUNT (BEAKER) (test rdud=616) 4.1 K/ L 3.5-10.5 RED BLOOD CELL COUNT (BEAKER) (test rpya=643) 2.67 M/ L 4.63-6.08 HEMOGLOBIN (BEAKER) (test lwqt=242) 8.3 GM/DL 13.7-17.5 HEMATOCRIT (BEAKER) (test hduv=184) 24.7 % 40.1-51.0 MEAN CORPUSCULAR VOLUME (BEAKER) (test fcvf=455) 92.5 fL 79.0-92.2 MEAN CORPUSCULAR HEMOGLOBIN (BEAKER) (test 31.1 pg 25.7-32.2 ojsf=939) MEAN CORPUSCULAR HEMOGLOBIN CONC (BEAKER) (test 33.6 GM/DL 32.3-36.5 ytea=824) RED CELL DISTRIBUTION WIDTH (BEAKER) (test 15.0 % 11.6-14.4 fmfz=247) PLATELET COUNT (BEAKER) (test qujg=681) 58 K/CU MM 150-450 MEAN PLATELET VOLUME (BEAKER) (test sziq=206) 9.3 fL 9.4-12.4 NUCLEATED RED BLOOD CELLS (BEAKER) (test 0 /100 WBC 0-0 hdcu=458) NEUTROPHILS RELATIVE PERCENT (BEAKER) (test 64 % gtxv=800) LYMPHOCYTES RELATIVE PERCENT (BEAKER) (test 12 % lglx=748) MONOCYTES RELATIVE PERCENT (BEAKER) (test 18 % foui=366) EOSINOPHILS RELATIVE PERCENT (BEAKER) (test 5 % pisq=338) BASOPHILS RELATIVE PERCENT (BEAKER) (test 0 % imaz=184) NEUTROPHILS ABSOLUTE COUNT (BEAKER) (test 2.63 K/ L 1.78-5.38 sxby=192) LYMPHOCYTES ABSOLUTE COUNT (BEAKER) (test 0.51 K/ L 1.32-3.57 lgtg=583) MONOCYTES ABSOLUTE COUNT (BEAKER) (test dicm=164) 0.74 K/ L 0.30-0.82 EOSINOPHILS ABSOLUTE COUNT (BEAKER) (test 0.21 K/ L 0.04-0.54 gclv=352) BASOPHILS ABSOLUTE COUNT (BEAKER) (test sjnw=652) 0.01 K/ L 0.01-0.08 IMMATURE GRANULOCYTES-RELATIVE PERCENT (BEAKER) 1 % 0-1 (test bizi=3285) PROTHROMBIN [id number] 05:49:00 Test Item Value Reference Range Comments PROTIME (BEAKER) (test mevz=495) 20.4 seconds 11.7-14.7 INR (BEAKER) (test kfgx=245) 1.8 <=5.9 RECOMMENDED COUMADIN/WARFARIN INR THERAPY RANGESSTANDARD DOSE: 2.0 - 3.0 Includes: PROPHYLAXIS forvenous thrombosis, systemic embolization; TREATMENT for venous thrombosis and/or pulmonary embolus.HIGH RISK: Target INR is 2.5-3.5 for patients with mechanical heart valves.[id number] 22:31:00 Test Item Value Reference Range Comments SODIUM (BEAKER) (test yjoc=980) 123 meq/L 136-145 POTASSIUM (BEAKER) (test zpnv=725) 4.5 meq/L 3.5-5.1 CHLORIDE (BEAKER) (test ocut=212) 94 meq/L 98-107 CO2 (BEAKER) (test rika=713) 22 meq/L 22-29 Call results "at a decent hour" to [id number]-GLUCOSE [id number] 21: 48:00 Test Item Value Reference Range Comments POC-GLUCOSE METER (BEAKER) 144 mg/dL 70-110 TESTED AT [address] (test fmod=8592) [facility] [id number] 17:27:00 Test Item Value Reference Range Comments CORTISOL, TOTAL (BEAKER) (test avxx=0320) 1.9 ug/dL 3.7-19.4 [id number] 17:03:00 Test Item Value Reference Range Comments SODIUM (BEAKER) (test eggs=213) 123 meq/L 136-145 POTASSIUM (BEAKER) (test tgak=238) 4.7 meq/L 3.5-5.1 CHLORIDE (BEAKER) (test ehsi=441) 95 meq/L 98-107 CO2 (BEAKER) (test gxso=637) 21 meq/L 22-29 Call resultsPOCT-GLUCOSE [id number] 16:48:00 Test Item Value Reference Range Comments POC-GLUCOSE METER (BEAKER) 117 mg/dL 70-110 TESTED AT [address] (test inzp=8538) [place] [id number] SODIUM, RANDOM [id number] 15:12:00 Test Item Value Reference Range Comments SODIUM URINE (BEAKER) (test ackc=150) < meq/L Reference Range: No NormalsCREATININE, RANDOM [id number] 15:11:00 Test Item Value Reference Range Comments CREATININE URINE (BEAKER) (test grah=258) 87.5 mg/dL Reference Range: No NormalsOSMOLALITY, [id number] 15:05:00 Test Item Value Reference Range Comments OSMOLALITY URINE (BEAKER) (test lttd=815) 234 mOsm/kg 40-1,400 POCT-GLUCOSE [id number] 13:14:00 Test Item Value Reference Range Comments POC-GLUCOSE METER (BEAKER) 129 mg/dL 70-110 TESTED AT [address] (test suzv=0542) [facility] [address] [id number] 10:06:00 Test Item Value Reference Range Comments SODIUM (BEAKER) (test hqnx=894) 120 meq/L 136-145 POTASSIUM (BEAKER) (test tweu=587) 4.6 meq/L 3.5-5.1 CHLORIDE (BEAKER) (test hdoq=049) 93 meq/L 98-107 CO2 (BEAKER) (test wqhp=655) 23 meq/L 22-29 Call [id number] 09:01:00 Test Item Value Reference Range Comments POC-GLUCOSE METER (BEAKER) 97 mg/dL 70-110 TESTED AT [address] (test usxl=6210) [facility] [address] COMPREHENSIVE METABOLIC [id number] 08:40:00 Test Item Value Reference Range Comments TOTAL PROTEIN (BEAKER) 5.2 gm/dL 6.0-8.3 (test jfwl=038) ALBUMIN (BEAKER) (test 3.7 g/dL 3.5-5.0 ryqe=3377) ALKALINE PHOSPHATASE 104 U/L 40-150 (BEAKER) (test gdrr=823) BILIRUBIN TOTAL (BEAKER) 3.3 mg/dL 0.2-1.2 (test qdpq=831) SODIUM (BEAKER) (test 120 meq/L 136-145 qksu=354) POTASSIUM (BEAKER) (test 4.8 meq/L 3.5-5.1 duhb=682) CHLORIDE (BEAKER) (test 93 meq/L 98-107 xycd=982) CO2 (BEAKER) (test 20 meq/L 22-29 jqeh=217) BLOOD UREA NITROGEN 31 mg/dL 7-21 (BEAKER) (test uigl=856) CREATININE (BEAKER) (test 1.72 mg/dL 0.57-1.25 vulz=926) GLUCOSE RANDOM (BEAKER) 99 mg/dL 70-105 (test giul=256) CALCIUM (BEAKER) (test 8.9 mg/dL 8.4-10.2 osea=732) AST (SGOT) (BEAKER) (test 16 U/L 5-34 wpie=487) ALT (SGPT) (BEAKER) (test < U/L 6-55 lbpw=832) EGFR (BEAKER) (test 42 mL/min/1.73 sq m ESTIMATED GFR IS NOT wnmk=2631) ACCURATE CREATININE CLEARANCE IN PREDICTING GLOMERULAR FILTRATION RATE. ESTIMATED GFR IS NOT APPLICABLE FOR DIALYSIS PATIENTS. Specimen slightly [id number] 08:14:00 Test Item Value Reference Range Comments PHOSPHORUS (BEAKER) (test depl=771) 3.8 mg/dL 2.3-4.7 [id number] 08:14:00 Test Item Value Reference Range Comments MAGNESIUM (BEAKER) (test ycpb=419) 2.1 mg/dL 1.6-2.6 CALCIUM, [id number] 06:56:00 Test Item Value Reference Range Comments CALCIUM IONIZED (BEAKER) (test dbwu=180) 1.12 mmol/L 1.12-1.27 PH, BLOOD (BEAKER) (test cqry=7931) 7.36 CBC W/PLT COUNT & AUTO [id number] 06:38:00 Test Item Value Reference Range Comments WHITE BLOOD CELL COUNT (BEAKER) (test ymxu=009) 4.9 K/ L 3.5-10.5 RED BLOOD CELL COUNT (BEAKER) (test staf=533) 2.69 M/ L 4.63-6.08 HEMOGLOBIN (BEAKER) (test kikq=790) 8.3 GM/DL 13.7-17.5 HEMATOCRIT (BEAKER) (test agea=999) 24.8 % 40.1-51.0 MEAN CORPUSCULAR VOLUME (BEAKER) (test yxah=281) 92.2 fL 79.0-92.2 MEAN CORPUSCULAR HEMOGLOBIN (BEAKER) (test 30.9 pg 25.7-32.2 cnqe=573) MEAN CORPUSCULAR HEMOGLOBIN CONC (BEAKER) (test 33.5 GM/DL 32.3-36.5 ocdh=912) RED CELL DISTRIBUTION WIDTH (BEAKER) (test 14.8 % 11.6-14.4 qqja=708) PLATELET COUNT (BEAKER) (test hjth=091) 65 K/CU MM 150-450 MEAN PLATELET VOLUME (BEAKER) (test hrrz=439) 9.1 fL 9.4-12.4 NUCLEATED RED BLOOD CELLS (BEAKER) (test 0 /100 WBC 0-0 emau=439) NEUTROPHILS RELATIVE PERCENT (BEAKER) (test 67 % xzkq=565) LYMPHOCYTES RELATIVE PERCENT (BEAKER) (test 10 % zkow=393) MONOCYTES RELATIVE PERCENT (BEAKER) (test 17 % dphp=958) EOSINOPHILS RELATIVE PERCENT (BEAKER) (test 5 % doay=723) BASOPHILS RELATIVE PERCENT (BEAKER) (test 0 % xynb=393) NEUTROPHILS ABSOLUTE COUNT (BEAKER) (test 3.32 K/ L 1.78-5.38 evpo=513) LYMPHOCYTES ABSOLUTE COUNT (BEAKER) (test 0.51 K/ L 1.32-3.57 thrh=965) MONOCYTES ABSOLUTE COUNT (BEAKER) (test ekva=928) 0.83 K/ L 0.30-0.82 EOSINOPHILS ABSOLUTE COUNT (BEAKER) (test 0.23 K/ L 0.04-0.54 xwhy=548) BASOPHILS ABSOLUTE COUNT (BEAKER) (test szsk=038) 0.02 K/ L 0.01-0.08 IMMATURE GRANULOCYTES-RELATIVE PERCENT (BEAKER) 1 % 0-1 (test cubi=4766) [id number] 06:35:00 Test Item Value Reference Range Comments PARTIAL THROMBOPLASTIN TIME (BEAKER) (test 52.6 seconds 22.5-36.0 vxev=385) PROTHROMBIN TIME/[id number] 06:34:00 Test Item Value Reference Range Comments PROTIME (BEAKER) (test lpye=068) 21.6 seconds 11.7-14.7 INR (BEAKER) (test rmpa=480) 1.9 <=5.9 RECOMMENDED COUMADIN/WARFARIN INR THERAPY RANGESSTANDARD DOSE: 2.0 - 3.0 Includes: PROPHYLAXIS forvenous thrombosis, systemic embolization; TREATMENT for venous thrombosis and/or pulmonary embolus.HIGH RISK: Target INR is 2.5-3.5 for patients with mechanical heart valves.POCT-GLUCOSE [id number] 22:00:00 Test Item Value Reference Range Comments POC-GLUCOSE METER (BEAKER) 114 mg/dL 70-110 TESTED AT [facility] [address] [facility] (test jwdh=2128) [facility] [address] POCT-GLUCOSE [id number] 17:57:00 Test Item Value Reference Range Comments POC-GLUCOSE METER (BEAKER) 139 mg/dL 70-110 TESTED AT [facility] [address] [facility] (test bprj=5923) [facility] [address] POCT-GLUCOSE [id number] 11:57:00 Test Item Value Reference Range Comments POC-GLUCOSE METER (BEAKER) 146 mg/dL 70-110 TESTED AT [address] (test npup=1458) [facility] [address] POCT-GLUCOSE [id number] 09:16:00 Test Item Value Reference Range Comments POC-GLUCOSE METER (BEAKER) 109 mg/dL 70-110 TESTED AT [address] (test wyua=7480) [facility] [address] COMPREHENSIVE METABOLIC [id number] 05:53:00 Test Item Value Reference Range Comments TOTAL PROTEIN (BEAKER) 5.2 gm/dL 6.0-8.3 (test gvfq=895) ALBUMIN (BEAKER) (test 3.8 g/dL 3.5-5.0 bpcg=4497) ALKALINE PHOSPHATASE 110 U/L 40-150 (BEAKER) (test dmxb=749) BILIRUBIN TOTAL (BEAKER) 4.5 mg/dL 0.2-1.2 (test nbln=633) SODIUM (BEAKER) (test 124 meq/L 136-145 itfu=677) POTASSIUM (BEAKER) (test 4.5 meq/L 3.5-5.1 kmie=457) CHLORIDE (BEAKER) (test 95 meq/L 98-107 xxzf=533) CO2 (BEAKER) (test 22 meq/L 22-29 piox=923) BLOOD UREA NITROGEN 30 mg/dL 7-21 (BEAKER) (test gusz=365) CREATININE (BEAKER) (test 1.67 mg/dL 0.57-1.25 hffl=545) GLUCOSE RANDOM (BEAKER) 99 mg/dL 70-105 (test afml=120) CALCIUM (BEAKER) (test 9.0 mg/dL 8.4-10.2 bqql=405) AST (SGOT) (BEAKER) (test 16 U/L 5-34 jgyt=043) ALT (SGPT) (BEAKER) (test < U/L 6-55 khwz=899) EGFR (BEAKER) (test 43 mL/min/1.73 sq m ESTIMATED GFR IS NOT kqxv=4417) ACCURATE CREATININE CLEARANCE IN PREDICTING GLOMERULAR FILTRATION RATE. ESTIMATED GFR IS NOT APPLICABLE FOR DIALYSIS PATIENTS. Specimen slightly [id number] 05:50:00 Test Item Value Reference Range Comments PHOSPHORUS (BEAKER) (test eowq=748) 3.7 mg/dL 2.3-4.7 [id number] 05:50:00 Test Item Value Reference Range Comments MAGNESIUM (BEAKER) (test aeqf=064) 2.1 mg/dL 1.6-2.6 CBC W/PLT COUNT & AUTO [id number] 05:28:00 Test Item Value Reference Range Comments WHITE BLOOD CELL COUNT (BEAKER) (test qdwp=199) 4.0 K/ L 3.5-10.5 RED BLOOD CELL COUNT (BEAKER) (test zzgl=595) 2.80 M/ L 4.63-6.08 HEMOGLOBIN (BEAKER) (test yekh=723) 8.7 GM/DL 13.7-17.5 HEMATOCRIT (BEAKER) (test zdpd=139) 25.8 % 40.1-51.0 MEAN CORPUSCULAR VOLUME (BEAKER) (test gtkp=184) 92.1 fL 79.0-92.2 MEAN CORPUSCULAR HEMOGLOBIN (BEAKER) (test 31.1 pg 25.7-32.2 znsa=678) MEAN CORPUSCULAR HEMOGLOBIN CONC (BEAKER) (test 33.7 GM/DL 32.3-36.5 sqhz=678) RED CELL DISTRIBUTION WIDTH (BEAKER) (test 14.7 % 11.6-14.4 rbzp=157) PLATELET COUNT (BEAKER) (test buis=196) 42 K/CU MM 150-450 MEAN PLATELET VOLUME (BEAKER) (test foqn=303) 9.8 fL 9.4-12.4 NUCLEATED RED BLOOD CELLS (BEAKER) (test 0 /100 WBC 0-0 xpjc=214) NEUTROPHILS RELATIVE PERCENT (BEAKER) (test 59 % kvjz=774) LYMPHOCYTES RELATIVE PERCENT (BEAKER) (test 15 % rwzf=624) MONOCYTES RELATIVE PERCENT (BEAKER) (test 20 % kgqw=729) EOSINOPHILS RELATIVE PERCENT (BEAKER) (test 5 % umat=921) BASOPHILS RELATIVE PERCENT (BEAKER) (test 1 % bcrz=672) NEUTROPHILS ABSOLUTE COUNT (BEAKER) (test 2.37 K/ L 1.78-5.38 dqcn=883) LYMPHOCYTES ABSOLUTE COUNT (BEAKER) (test 0.58 K/ L 1.32-3.57 rdar=739) MONOCYTES ABSOLUTE COUNT (BEAKER) (test kkgp=226) 0.78 K/ L 0.30-0.82 EOSINOPHILS ABSOLUTE COUNT (BEAKER) (test 0.21 K/ L 0.04-0.54 httk=019) BASOPHILS ABSOLUTE COUNT (BEAKER) (test djge=419) 0.02 K/ L 0.01-0.08 IMMATURE GRANULOCYTES-RELATIVE PERCENT (BEAKER) 1 % 0-1 (test nzup=0852) PROTHROMBIN [id number] 05:26:00 Test Item Value Reference Range Comments PROTIME (BEAKER) (test xhdu=910) 23.3 seconds 11.7-14.7 INR (BEAKER) (test rkza=635) 2.1 <=5.9 RECOMMENDED COUMADIN/WARFARIN INR THERAPY RANGESSTANDARD DOSE: 2.0 - 3.0 Includes: PROPHYLAXIS forvenous thrombosis, systemic embolization; TREATMENT for venous thrombosis and/or pulmonary embolus.HIGH RISK: Target INR is 2.5-3.5 for patients with mechanical heart valves.CALCIUM, [id number] 05:21:00 Test Item Value Reference Range Comments CALCIUM IONIZED (BEAKER) (test lwjs=693) 1.11 mmol/L 1.12-1.27 PH, BLOOD (BEAKER) (test ykky=2986) 7.40 POCT-GLUCOSE [id number] 21:47:00 Test Item Value Reference Range Comments POC-GLUCOSE METER (BEAKER) 129 mg/dL 70-110 TESTED AT [facility] [address] [facility] (test hurw=4476) [facility] [address] RAD, CHEST, 1 VIEW, NON [id number] 17:18:00Reason for exam:->sobFINAL REPORT Comparison: 08/26/2018 TECHNIQUE: Single view of the chest FINDINGS: Lung volumes are low. Bibasilar densities may represent atelectasis. Otherwise lungs are clear. Cardiac silhouette is within normal limits. Soft tissues and bones are unremarkable. Signed: Rick Loomis MDReport Verified Date/Time: 09/02/2018 17:18:49 Reading Location: [facility] Mammo Reading Room CBC W/ PLT COUNT & AUTO [id number] 17:16:00 Test Item Value Reference Range Comments WHITE BLOOD CELL COUNT (BEAKER) (test ybxk=795) 3.8 K/ L 3.5-10.5 RED BLOOD CELL COUNT (BEAKER) (test wycm=306) 2.37 M/ L 4.63-6.08 HEMOGLOBIN (BEAKER) (test hxxk=908) 7.4 GM/DL 13.7-17.5 HEMATOCRIT (BEAKER) (test wmad=535) 21.8 % 40.1-51.0 MEAN CORPUSCULAR VOLUME (BEAKER) (test xafl=046) 92.0 fL 79.0-92.2 MEAN CORPUSCULAR HEMOGLOBIN (BEAKER) (test 31.2 pg 25.7-32.2 kezq=557) MEAN CORPUSCULAR HEMOGLOBIN CONC (BEAKER) (test 33.9 GM/DL 32.3-36.5 ctlz=421) RED CELL DISTRIBUTION WIDTH (BEAKER) (test 14.9 % 11.6-14.4 ftel=347) PLATELET COUNT (BEAKER) (test hpyi=038) 41 K/CU MM 150-450 MEAN PLATELET VOLUME (BEAKER) (test cyoq=773) 8.8 fL 9.4-12.4 NUCLEATED RED BLOOD CELLS (BEAKER) (test 0 /100 WBC 0-0 odhh=949) NEUTROPHILS RELATIVE PERCENT (BEAKER) (test 62 % xnrr=238) LYMPHOCYTES RELATIVE PERCENT (BEAKER) (test 14 % xiqo=545) MONOCYTES RELATIVE PERCENT (BEAKER) (test 18 % mqbf=921) EOSINOPHILS RELATIVE PERCENT (BEAKER) (test 4 % hlaa=056) BASOPHILS RELATIVE PERCENT (BEAKER) (test 0 % rehw=688) NEUTROPHILS ABSOLUTE COUNT (BEAKER) (test 2.39 K/ L 1.78-5.38 uxwz=036) LYMPHOCYTES ABSOLUTE COUNT (BEAKER) (test 0.55 K/ L 1.32-3.57 extp=540) MONOCYTES ABSOLUTE COUNT (BEAKER) (test iyvu=817) 0.69 K/ L 0.30-0.82 EOSINOPHILS ABSOLUTE COUNT (BEAKER) (test 0.17 K/ L 0.04-0.54 iypd=496) BASOPHILS ABSOLUTE COUNT (BEAKER) (test vluv=678) 0.01 K/ L 0.01-0.08 IMMATURE GRANULOCYTES-RELATIVE PERCENT (BEAKER) 1 % 0-1 (test hlbw=0670) POCT-BLOOD GASES, [id number] 16:58:00 Test Item Value Reference Range Comments TEMP, CELSIUS-POC (BEAKER) 37.0 (test ccgl=6587) FIO2-POC (BEAKER) (test [address] o[address] [place] [address] PH, ARTERIAL-POC (BEAKER) 7.412 7.350-7.450 (test zizn=8973) PCO2, ARTERIAL-POC (BEAKER) 35.5 mm Hg 35.0-45.0 (test mzti=5950) PO2, ARTERIAL-POC (BEAKER) 69.0 mm Hg 80.0-90.0 (test puuk=3846) SO2, ARTERIAL-POC (BEAKER) 94.0 % 96.0-97.0 (test durf=5320) HCO3, ARTERIAL-POC (BEAKER) 22.6 meq/L 21.0-29.0 (test vuaa=6876) BASE EXCESS, ARTERIAL-POC -2.0 meq/L -2.0-3.0 (BEAKER) (test ewvp=2171) [id number] 16:58:00 Test Item Value Reference Range Comments POC-SODIUM (BEAKER) (test 125 meq/L 135-148 TESTED AT [place] [address] [address] yxtt=0779) [place] [address] [id number] 16:58:00 Test Item Value Reference Range Comments POC-POTASSIUM (BEAKER) (test 4.2 meq/L 3.6-5.5 TESTED AT [place] [address] [address] vdxm=2569) [place] [address] [id number] 16:58:00 Test Item Value Reference Range Comments POC-GLUCOSE (BEAKER) (test 128 mg/dL 70-110 TESTED AT [place] [address] [address] xjma=7075) [place] [address] POCT-CALCIUM [id number] 16:58:00 Test Item Value Reference Range Comments POC-CALCIUM IONIZED (AKER) 1.24 mmol/L 1.12-1.27 TESTED AT [address] (test zdya=5061) [facility] [address] [id number] 16:58:00 Test Item Value Reference Range Comments POC-HEMATOCRIT (BEAKER) (test 21 % 40-50 TESTED AT [address] mwkk=0931) [place] [address] [id number] 16:58:00 Test Item Value Reference Range Comments POC-HEMOGLOBIN (AKER) 7.1 g/dL 13.0-16.8 TESTED AT [address] (test idfk=4475) [place] [address]TESTED AT [place] [address] POCT-LACTIC ACID, [id number] 16:58:00 Test Item Value Reference Range Comments POC-LACTIC ACID, ARTERIAL 1.0 mmol/L 0.4-1.3 TESTED AT [address] (BEAKER) (test ungs=9955) [place] [address] POCT-GLUCOSE [id number] 11:43:00 Test Item Value Reference Range Comments POC-GLUCOSE METER (AKER) 169 mg/dL 70-110 TESTED AT [address] (test tmgt=2963) [place] [address] POCT-GLUCOSE [id number] 08:23:00 Test Item Value Reference Range Comments POC-GLUCOSE METER (BEAKER) 128 mg/dL 70-110 TESTED AT [address] (test nadk=0417) [place] [address] [id number] 05:16:00 Test Item Value Reference Range Comments PHOSPHORUS (BEAKER) (test ytux=617) 3.8 mg/dL 2.3-4.7 [id number] 05:16:00 Test Item Value Reference Range Comments MAGNESIUM (BEAKER) (test mlxy=642) 2.0 mg/dL 1.6-2.6 COMPREHENSIVE METABOLIC [id number] 05:16:00 Test Item Value Reference Range Comments TOTAL PROTEIN (BEAKER) 5.0 gm/dL 6.0-8.3 (test dulj=366) ALBUMIN (BEAKER) (test 3.5 g/dL 3.5-5.0 ylzd=2093) ALKALINE PHOSPHATASE 124 U/L 40-150 (BEAKER) (test juqc=399) BILIRUBIN TOTAL (BEAKER) 2.2 mg/dL 0.2-1.2 (test kljt=162) SODIUM (BEAKER) (test 125 meq/L 136-145 lgrg=512) POTASSIUM (BEAKER) (test 4.4 meq/L 3.5-5.1 beum=195) CHLORIDE (BEAKER) (test 96 meq/L 98-107 pimj=130) CO2 (BEAKER) (test 23 meq/L 22-29 xouw=799) BLOOD UREA NITROGEN 27 mg/dL 7-21 (BEAKER) (test kina=523) CREATININE (BEAKER) (test 1.74 mg/dL 0.57-1.25 pnqg=951) GLUCOSE RANDOM (BEAKER) 112 mg/dL 70-105 (test nmyd=646) CALCIUM (BEAKER) (test 8.8 mg/dL 8.4-10.2 tptg=953) AST (SGOT) (BEAKER) (test 17 U/L 5-34 lmts=636) ALT (SGPT) (BEAKER) (test 7 U/L 6-55 tvwb=594) EGFR (BEAKER) (test 41 mL/min/1.73 sq m ESTIMATED GFR IS NOT mjvu=4396) ACCURATE CREATININE CLEARANCE IN PREDICTING GLOMERULAR FILTRATION RATE. ESTIMATED GFR IS NOT APPLICABLE FOR DIALYSIS PATIENTS. CALCIUM, [id number] 05:13:00 Test Item Value Reference Range Comments CALCIUM IONIZED (BEAKER) (test gyfm=566) 1.10 mmol/L 1.12-1.27 PH, BLOOD (BEAKER) (test oxac=3050) 7.44 CBC W/PLT COUNT & AUTO [id number] 05:02:00 Test Item Value Reference Range Comments WHITE BLOOD CELL COUNT (BEAKER) (test xjmk=518) 3.2 K/ L 3.5-10.5 RED BLOOD CELL COUNT (BEAKER) (test vkxm=506) 2.23 M/ L 4.63-6.08 HEMOGLOBIN (BEAKER) (test cxqy=163) 6.9 GM/DL 13.7-17.5 HEMATOCRIT (BEAKER) (test whmt=035) 20.8 % 40.1-51.0 MEAN CORPUSCULAR VOLUME (BEAKER) (test kozd=638) 93.3 fL 79.0-92.2 MEAN CORPUSCULAR HEMOGLOBIN (BEAKER) (test 30.9 pg 25.7-32.2 pgvx=439) MEAN CORPUSCULAR HEMOGLOBIN CONC (BEAKER) (test 33.2 GM/DL 32.3-36.5 elzl=837) RED CELL DISTRIBUTION WIDTH (BEAKER) (test 14.6 % 11.6-14.4 lvtv=298) PLATELET COUNT (BEAKER) (test qxjv=886) 43 K/CU MM 150-450 MEAN PLATELET VOLUME (BEAKER) (test zmys=058) 9.3 fL 9.4-12.4 NUCLEATED RED BLOOD CELLS (BEAKER) (test 0 /100 WBC 0-0 cddr=666) NEUTROPHILS RELATIVE PERCENT (BEAKER) (test 58 % jelx=100) LYMPHOCYTES RELATIVE PERCENT (BEAKER) (test 17 % cpgp=823) MONOCYTES RELATIVE PERCENT (BEAKER) (test 18 % olgj=255) EOSINOPHILS RELATIVE PERCENT (BEAKER) (test 5 % hsbt=243) BASOPHILS RELATIVE PERCENT (BEAKER) (test 1 % obht=355) NEUTROPHILS ABSOLUTE COUNT (BEAKER) (test 1.84 K/ L 1.78-5.38 hstv=696) LYMPHOCYTES ABSOLUTE COUNT (BEAKER) (test 0.54 K/ L 1.32-3.57 aqiv=625) MONOCYTES ABSOLUTE COUNT (BEAKER) (test bkwn=727) 0.56 K/ L 0.30-0.82 EOSINOPHILS ABSOLUTE COUNT (BEAKER) (test 0.15 K/ L 0.04-0.54 lthw=231) BASOPHILS ABSOLUTE COUNT (BEAKER) (test kiiv=196) 0.02 K/ L 0.01-0.08 IMMATURE GRANULOCYTES-RELATIVE PERCENT (BEAKER) 1 % 0-1 (test hhtu=4297) PROTHROMBIN [id number] 05:00:00 Test Item Value Reference Range Comments PROTIME (BEAKER) (test rqxk=173) 22.7 seconds 11.7-14.7 INR (BEAKER) (test ctuk=322) 2.0 <=5.9 RECOMMENDED COUMADIN/WARFARIN INR THERAPY RANGESSTANDARD DOSE: 2.0 - 3.0 Includes: PROPHYLAXIS forvenous thrombosis, systemic embolization; TREATMENT for venous thrombosis and/or pulmonary embolus.HIGH RISK: Target INR is 2.5-3.5 for patients with mechanical heart valves.POCT-GLUCOSE [id number] 22:18:00 Test Item Value Reference Range Comments POC-GLUCOSE METER (BEAKER) 194 mg/dL 70-110 TESTED AT [address] (test vgdk=1639) [place] [address] POCT-GLUCOSE [id number] 17:33:00 Test Item Value Reference Range Comments POC-GLUCOSE METER (BEAKER) 160 mg/dL 70-110 TESTED AT [address] (test pbjp=3354) [place] [address] POCT-GLUCOSE [id number] 11:56:00 Test Item Value Reference Range Comments POC-GLUCOSE METER (BEAKER) 151 mg/dL 70-110 TESTED AT [address] (test tbnw=9194) [place] [address] URINALYSIS W/ [id number] 09:52:00 Test Item Value Reference Range Comments COLOR (BEAKER) (test ptak=419) Yellow CLARITY (BEAKER) (test xgfv=886) Clear SPECIFIC GRAVITY UA (BEAKER) (test 1.014 1.001-1.035 vlxn=469) PH UA (BEAKER) (test sfhr=997) 5.5 5.0-8.0 PROTEIN UA (BEAKER) (test nshw=727) Negative Negative GLUCOSE UA (BEAKER) (test pfxq=228) Negative Negative KETONES UA (BEAKER) (test dofy=423) Negative Negative BILIRUBIN UA (BEAKER) (test pwtr=656) Negative Negative BLOOD UA (BEAKER) (test hdir=407) Negative Negative NITRITE UA (BEAKER) (test jkyq=306) Negative Negative LEUKOCYTE ESTERASE UA (BEAKER) (test Negative Negative pgrc=345) UROBILINOGEN UA (BEAKER) (test bpzo=825) 0.2 mg/dL 0.2-1.0 RBC UA (BEAKER) (test zggh=657) 1 /HPF WBC UA (BEAKER) (test avay=597) 4 /HPF BACTERIA (BEAKER) (test lybh=110) Rare MUCUS (BEAKER) (test xxxj=2760) Rare HYALINE CASTS (BEAKER) (test ewlt=340) 19 /LPF YEAST (BEAKER) (test wdjf=3313) Rare SOURCE(BEAKER) (test cvmt=1672) Urine, Clean Catch SODIUM, RANDOM [id number] 09:09:00 Test Item Value Reference Range Comments SODIUM URINE (BEAKER) (test wuim=275) < meq/L Reference Range: No NormalsCREATININE, RANDOM [id number] 09:04:00 Test Item Value Reference Range Comments CREATININE URINE (BEAKER) (test rfax=654) 149.6 mg/dL Reference Range: No NormalsPOCT-GLUCOSE [id number] 08:12:00 Test Item Value Reference Range Comments POC-GLUCOSE METER (BEAKER) 106 mg/dL 70-110 TESTED AT [facility] [address] [facility] (test brro=7317) [facility] [address] CBC W/PLT COUNT & AUTO [id number] 06:56:00 Test Item Value Reference Range Comments WHITE BLOOD CELL COUNT (BEAKER) (test fgru=591) 4.5 K/ L 3.5-10.5 RED BLOOD CELL COUNT (BEAKER) (test ibrx=838) 2.22 M/ L 4.63-6.08 HEMOGLOBIN (BEAKER) (test mbwg=785) 7.0 GM/DL 13.7-17.5 HEMATOCRIT (BEAKER) (test uxod=358) 20.6 % 40.1-51.0 MEAN CORPUSCULAR VOLUME (BEAKER) (test pauq=267) 92.8 fL 79.0-92.2 MEAN CORPUSCULAR HEMOGLOBIN (BEAKER) (test 31.5 pg 25.7-32.2 bnzh=577) MEAN CORPUSCULAR HEMOGLOBIN CONC (BEAKER) (test 34.0 GM/DL 32.3-36.5 ftho=263) RED CELL DISTRIBUTION WIDTH (BEAKER) (test 14.7 % 11.6-14.4 gnil=450) PLATELET COUNT (BEAKER) (test uzye=030) 44 K/CU MM 150-450 MEAN PLATELET VOLUME (BEAKER) (test vwzi=489) 9.0 fL 9.4-12.4 NUCLEATED RED BLOOD CELLS (BEAKER) (test 0 /100 WBC 0-0 nkvl=495) NEUTROPHILS RELATIVE PERCENT (BEAKER) (test 69 % hgew=136) LYMPHOCYTES RELATIVE PERCENT (BEAKER) (test 12 % ufox=441) MONOCYTES RELATIVE PERCENT (BEAKER) (test 14 % pmhm=815) EOSINOPHILS RELATIVE PERCENT (BEAKER) (test 4 % hahl=773) BASOPHILS RELATIVE PERCENT (BEAKER) (test 0 % zouu=616) NEUTROPHILS ABSOLUTE COUNT (BEAKER) (test 3.12 K/ L 1.78-5.38 doka=381) LYMPHOCYTES ABSOLUTE COUNT (BEAKER) (test 0.55 K/ L 1.32-3.57 sgnf=503) MONOCYTES ABSOLUTE COUNT (BEAKER) (test lafd=658) 0.62 K/ L 0.30-0.82 EOSINOPHILS ABSOLUTE COUNT (BEAKER) (test 0.18 K/ L 0.04-0.54 kjlo=486) BASOPHILS ABSOLUTE COUNT (BEAKER) (test uhng=088) 0.00 K/ L 0.01-0.08 IMMATURE GRANULOCYTES-RELATIVE PERCENT (BEAKER) 1 % 0-1 (test oros=0408) [id number] 06:41:00 Test Item Value Reference Range Comments PHOSPHORUS (BEAKER) (test iueo=485) 2.7 mg/dL 2.3-4.7 [id number] 06:41:00 Test Item Value Reference Range Comments MAGNESIUM (BEAKER) (test urio=279) 2.0 mg/dL 1.6-2.6 COMPREHENSIVE METABOLIC [id number] 06:41:00 Test Item Value Reference Range Comments TOTAL PROTEIN (BEAKER) 4.9 gm/dL 6.0-8.3 (test tolx=248) ALBUMIN (BEAKER) (test 3.1 g/dL 3.5-5.0 dizt=6154) ALKALINE PHOSPHATASE 148 U/L 40-150 (BEAKER) (test wypa=226) BILIRUBIN TOTAL (BEAKER) 1.9 mg/dL 0.2-1.2 (test gqvf=264) SODIUM (BEAKER) (test 123 meq/L 136-145 gbnt=786) POTASSIUM (BEAKER) (test 3.9 meq/L 3.5-5.1 djro=925) CHLORIDE (BEAKER) (test 94 meq/L 98-107 zhhu=938) CO2 (BEAKER) (test 22 meq/L 22-29 rnmo=904) BLOOD UREA NITROGEN 24 mg/dL 7-21 (BEAKER) (test qnsu=582) CREATININE (BEAKER) (test 1.55 mg/dL 0.57-1.25 hpzn=754) GLUCOSE RANDOM (BEAKER) 95 mg/dL 70-105 (test ssst=237) CALCIUM (BEAKER) (test 8.5 mg/dL 8.4-10.2 iovt=144) AST (SGOT) (BEAKER) (test 18 U/L 5-34 uqro=840) ALT (SGPT) (BEAKER) (test 10 U/L 6-55 daya=921) EGFR (BEAKER) (test 47 mL/min/1.73 sq m ESTIMATED GFR IS NOT olak=5342) ACCURATE CREATININE CLEARANCE IN PREDICTING GLOMERULAR FILTRATION RATE. ESTIMATED GFR IS NOT APPLICABLE FOR DIALYSIS PATIENTS. BILIRUBIN, [id number] 06:41:00 Test Item Value Reference Range Comments BILIRUBIN DIRECT (BEAKER) (test czhm=051) 1.3 mg/dL 0.1-0.5 PROTHROMBIN [id number] 06:26:00 Test Item Value Reference Range Comments PROTIME (BEAKER) (test fwck=768) 23.3 seconds 11.7-14.7 INR (BEAKER) (test ykfx=971) 2.1 <=5.9 RECOMMENDED COUMADIN/WARFARIN INR THERAPY RANGESSTANDARD DOSE: 2.0 - 3.0 Includes: PROPHYLAXIS forvenous thrombosis, systemic embolization; TREATMENT for venous thrombosis and/or pulmonary embolus.HIGH RISK: Target INR is 2.5-3.5 for patients with mechanical heart valves.POCT-GLUCOSE [id number] 22:17:00 Test Item Value Reference Range Comments POC-GLUCOSE METER (BEAKER) 136 mg/dL 70-110 TESTED AT [facility] [address] [facility] (test igta=6717) [facility] [address] POCT-GLUCOSE [id number] 18:08:00 Test Item Value Reference Range Comments POC-GLUCOSE METER (BEAKER) 126 mg/dL 70-110 TESTED AT [facility] [address] [facility] (test vefl=5641) [facility] [address] U/S, [id number] 17:47:00Reason for exam:->ascitesFINAL REPORT Indication: Ascites. Technique: Ultrasound guided paracentesis. Findings:Preliminary ultrasound confirms ascites. A safe window was identified in the left lower quadrant. The procedure was explained to the patient and informed consent was signed. The skin was markedand prepped in standard sterile fashion. Lidocaine was used for local anesthesia. A 5 [place] needle catheter system was advanced into the peritoneal space. 5500 cc slightly cloudy yellow fluid was taken off. Patient tolerated the procedure well. Impression: Ultrasound guided paracentesis. Signed: Aristeo Xiong MDReport Verified Date/Time: 08/31/2018 17:47:54 Reading Location: [address] Ultrasound Reading Room POCT-GLUCOSE [id number] 11:52:00 Test Item Value Reference Range Comments POC-GLUCOSE METER (BEAKER) 151 mg/dL 70-110 TESTED AT [address] (test dbdm=7373) [facility] [address] POCT-GLUCOSE [id number] 08:19:00 Test Item Value Reference Range Comments POC-GLUCOSE METER (BEAKER) 129 mg/dL 70-110 TESTED AT [address] (test njph=0866) [facility] [address] [id number] 05:12:00 Test Item Value Reference Range Comments PHOSPHORUS (BEAKER) (test ihls=258) 2.9 mg/dL 2.3-4.7 [id number] 05:12:00 Test Item Value Reference Range Comments MAGNESIUM (BEAKER) (test ynpa=637) 2.0 mg/dL 1.6-2.6 COMPREHENSIVE METABOLIC [id number] 05:12:00 Test Item Value Reference Range Comments TOTAL PROTEIN (BEAKER) 5.4 gm/dL 6.0-8.3 (test pgcw=294) ALBUMIN (BEAKER) (test 3.2 g/dL 3.5-5.0 axah=0952) ALKALINE PHOSPHATASE 159 U/L 40-150 (BEAKER) (test cuam=859) BILIRUBIN TOTAL (BEAKER) 1.8 mg/dL 0.2-1.2 (test uwet=978) SODIUM (BEAKER) (test 125 meq/L 136-145 hltc=536) POTASSIUM (BEAKER) (test 4.3 meq/L 3.5-5.1 fhbu=200) CHLORIDE (BEAKER) (test 97 meq/L 98-107 jkqe=088) CO2 (BEAKER) (test 22 meq/L 22-29 jlfr=968) BLOOD UREA NITROGEN 21 mg/dL 7-21 (BEAKER) (test glet=748) CREATININE (BEAKER) (test 1.34 mg/dL 0.57-1.25 dsgb=665) GLUCOSE RANDOM (BEAKER) 113 mg/dL 70-105 (test avry=351) CALCIUM (BEAKER) (test 8.8 mg/dL 8.4-10.2 svsu=034) AST (SGOT) (BEAKER) (test 22 U/L 5-34 lpba=560) ALT (SGPT) (BEAKER) (test 11 U/L 6-55 ieum=158) EGFR (BEAKER) (test 56 mL/min/1.73 sq m ESTIMATED GFR IS NOT rnms=4895) ACCURATE CREATININE CLEARANCE IN PREDICTING GLOMERULAR FILTRATION RATE. ESTIMATED GFR IS NOT APPLICABLE FOR DIALYSIS PATIENTS. BILIRUBIN, [id number] 05:12:00 Test Item Value Reference Range Comments BILIRUBIN DIRECT (BEAKER) (test cfiq=234) 1.2 mg/dL 0.1-0.5 PROTHROMBIN [id number] 04:48:00 Test Item Value Reference Range Comments PROTIME (BEAKER) (test yhea=531) 22.3 seconds 11.7-14.7 INR (BEAKER) (test yntd=805) 2.0 <=5.9 RECOMMENDED COUMADIN/WARFARIN INR THERAPY RANGESSTANDARD DOSE: 2.0 - 3.0 Includes: PROPHYLAXIS forvenous thrombosis, systemic embolization; TREATMENT for venous thrombosis and/or pulmonary embolus.HIGH RISK: Target INR is 2.5-3.5 for patients with mechanical heart valves.CBC W/PLT COUNT & AUTO [id number] 04:33:00 Test Item Value Reference Range Comments WHITE BLOOD CELL COUNT (BEAKER) (test jzum=707) 5.5 K/ L 3.5-10.5 RED BLOOD CELL COUNT (BEAKER) (test dvte=190) 2.58 M/ L 4.63-6.08 HEMOGLOBIN (BEAKER) (test pter=483) 7.9 GM/DL 13.7-17.5 HEMATOCRIT (BEAKER) (test dfym=433) 24.3 % 40.1-51.0 MEAN CORPUSCULAR VOLUME (BEAKER) (test bywl=277) 94.2 fL 79.0-92.2 MEAN CORPUSCULAR HEMOGLOBIN (BEAKER) (test 30.6 pg 25.7-32.2 oljk=474) MEAN CORPUSCULAR HEMOGLOBIN CONC (BEAKER) (test 32.5 GM/DL 32.3-36.5 yfxb=924) RED CELL DISTRIBUTION WIDTH (BEAKER) (test 15.0 % 11.6-14.4 nccw=149) PLATELET COUNT (BEAKER) (test vcxg=548) 57 K/CU MM 150-450 MEAN PLATELET VOLUME (BEAKER) (test xsmh=208) 9.2 fL 9.4-12.4 NUCLEATED RED BLOOD CELLS (BEAKER) (test 0 /100 WBC 0-0 zqdt=962) NEUTROPHILS RELATIVE PERCENT (BEAKER) (test 70 % wbay=221) LYMPHOCYTES RELATIVE PERCENT (BEAKER) (test 12 % kfag=704) MONOCYTES RELATIVE PERCENT (BEAKER) (test 14 % jgwt=379) EOSINOPHILS RELATIVE PERCENT (BEAKER) (test 4 % pfsu=381) BASOPHILS RELATIVE PERCENT (BEAKER) (test 0 % nfla=550) NEUTROPHILS ABSOLUTE COUNT (BEAKER) (test 3.85 K/ L 1.78-5.38 wuzy=946) LYMPHOCYTES ABSOLUTE COUNT (BEAKER) (test 0.67 K/ L 1.32-3.57 yicc=574) MONOCYTES ABSOLUTE COUNT (BEAKER) (test rspw=272) 0.75 K/ L 0.30-0.82 EOSINOPHILS ABSOLUTE COUNT (BEAKER) (test 0.22 K/ L 0.04-0.54 cpot=075) BASOPHILS ABSOLUTE COUNT (BEAKER) (test tvou=775) 0.01 K/ L 0.01-0.08 IMMATURE GRANULOCYTES-RELATIVE PERCENT (BEAKER) 1 % 0-1 (test xytw=2114) BLOOD [id number] 23:01:00 Test Item Value Reference Range Comments CULTURE (BEAKER) (test ayld=6536) No growth in 5 days POCT-GLUCOSE [id number] 22:15:00 Test Item Value Reference Range Comments POC-GLUCOSE METER (BEAKER) 133 mg/dL 70-110 TESTED AT [address] (test uqta=2599) [facility] [address] POCT-GLUCOSE [id number] 17:42:00 Test Item Value Reference Range Comments POC-GLUCOSE METER (BEAKER) 139 mg/dL 70-110 TESTED AT [address] (test brxr=0363) [facility] [address] POCT-GLUCOSE [id number] 12:02:00 Test Item Value Reference Range Comments POC-GLUCOSE METER (BEAKER) 152 mg/dL 70-110 TESTED AT [address] (test davd=6034) [facility] [address] POCT-GLUCOSE [id number] 09:04:00 Test Item Value Reference Range Comments POC-GLUCOSE METER (BEAKER) 130 mg/dL 70-110 TESTED AT [address] (test dgqw=4307) [facility] [address] CALCIUM, [id number] 07:27:00 Test Item Value Reference Range Comments CALCIUM IONIZED (BEAKER) (test eadj=144) 1.10 mmol/L 1.12-1.27 PH, BLOOD (BEAKER) (test wxzy=8524) 7.42 [id number] 06:46:00 Test Item Value Reference Range Comments PHOSPHORUS (BEAKER) (test ztgc=356) 3.0 mg/dL 2.3-4.7 [id number] 06:46:00 Test Item Value Reference Range Comments MAGNESIUM (BEAKER) (test advs=074) 2.0 mg/dL 1.6-2.6 COMPREHENSIVE METABOLIC [id number] 06:46:00 Test Item Value Reference Range Comments TOTAL PROTEIN (BEAKER) 4.9 gm/dL 6.0-8.3 (test sboc=500) ALBUMIN (BEAKER) (test 3.0 g/dL 3.5-5.0 zsbw=5655) ALKALINE PHOSPHATASE 145 U/L 40-150 (BEAKER) (test mysa=318) BILIRUBIN TOTAL (BEAKER) 1.9 mg/dL 0.2-1.2 (test rrti=606) SODIUM (BEAKER) (test 127 meq/L 136-145 ojtp=770) POTASSIUM (BEAKER) (test 3.7 meq/L 3.5-5.1 alvs=171) CHLORIDE (BEAKER) (test 99 meq/L 98-107 algl=415) CO2 (BEAKER) (test 21 meq/L 22-29 wiml=991) BLOOD UREA NITROGEN 20 mg/dL 7-21 (BEAKER) (test codd=954) CREATININE (BEAKER) (test 1.21 mg/dL 0.57-1.25 jaua=406) GLUCOSE RANDOM (BEAKER) 108 mg/dL 70-105 (test iikg=109) CALCIUM (BEAKER) (test 8.9 mg/dL 8.4-10.2 mfuu=341) AST (SGOT) (BEAKER) (test 22 U/L 5-34 knom=566) ALT (SGPT) (BEAKER) (test 9 U/L 6-55 uljr=269) EGFR (BEAKER) (test 63 mL/min/1.73 sq m ESTIMATED GFR IS NOT wurs=8595) ACCURATE CREATININE CLEARANCE IN PREDICTING GLOMERULAR FILTRATION RATE. ESTIMATED GFR IS NOT APPLICABLE FOR DIALYSIS PATIENTS. BASIC METABOLIC [id number] 06:46:00 Test Item Value Reference Range Comments SODIUM (BEAKER) (test 127 meq/L 136-145 okax=757) POTASSIUM (BEAKER) (test 3.7 meq/L 3.5-5.1 ygxd=283) CHLORIDE (BEAKER) (test 99 meq/L 98-107 vmlj=178) CO2 (BEAKER) (test 21 meq/L 22-29 apqi=420) BLOOD UREA NITROGEN 20 mg/dL 7-21 (BEAKER) (test suln=164) CREATININE (BEAKER) (test 1.21 mg/dL 0.57-1.25 mfkg=392) GLUCOSE RANDOM (BEAKER) 108 mg/dL 70-105 (test xhxa=123) CALCIUM (BEAKER) (test 8.9 mg/dL 8.4-10.2 lgin=848) EGFR (BEAKER) (test 63 mL/min/1.73 sq m ESTIMATED GFR IS NOT rmit=7407) ACCURATE CREATININE CLEARANCE IN PREDICTING GLOMERULAR FILTRATION RATE. ESTIMATED GFR IS NOT APPLICABLE FOR DIALYSIS PATIENTS. BILIRUBIN, [id number] 06:46:00 Test Item Value Reference Range Comments BILIRUBIN DIRECT (BEAKER) (test eimu=625) 1.2 mg/dL 0.1-0.5 CBC W/PLT COUNT & AUTO [id number] 06:30:00 Test Item Value Reference Range Comments WHITE BLOOD CELL COUNT (BEAKER) (test jder=754) 3.7 K/ L 3.5-10.5 RED BLOOD CELL COUNT (BEAKER) (test ovsc=421) 2.35 M/ L 4.63-6.08 HEMOGLOBIN (BEAKER) (test warq=018) 7.4 GM/DL 13.7-17.5 HEMATOCRIT (BEAKER) (test ddzq=407) 22.1 % 40.1-51.0 MEAN CORPUSCULAR VOLUME (BEAKER) (test vopo=749) 94.0 fL 79.0-92.2 MEAN CORPUSCULAR HEMOGLOBIN (BEAKER) (test 31.5 pg 25.7-32.2 frtq=173) MEAN CORPUSCULAR HEMOGLOBIN CONC (BEAKER) (test 33.5 GM/DL 32.3-36.5 cmrt=641) RED CELL DISTRIBUTION WIDTH (BEAKER) (test 14.8 % 11.6-14.4 thal=190) PLATELET COUNT (BEAKER) (test rigg=658) 45 K/CU MM 150-450 MEAN PLATELET VOLUME (BEAKER) (test kvwt=211) 8.8 fL 9.4-12.4 NUCLEATED RED BLOOD CELLS (BEAKER) (test 0 /100 WBC 0-0 egif=166) NEUTROPHILS RELATIVE PERCENT (BEAKER) (test 61 % grlt=102) LYMPHOCYTES RELATIVE PERCENT (BEAKER) (test 14 % fedp=437) MONOCYTES RELATIVE PERCENT (BEAKER) (test 18 % cutz=064) EOSINOPHILS RELATIVE PERCENT (BEAKER) (test 6 % ytiz=678) BASOPHILS RELATIVE PERCENT (BEAKER) (test 0 % dkhq=107) NEUTROPHILS ABSOLUTE COUNT (BEAKER) (test 2.25 K/ L 1.78-5.38 cjyd=578) LYMPHOCYTES ABSOLUTE COUNT (BEAKER) (test 0.53 K/ L 1.32-3.57 jyue=623) MONOCYTES ABSOLUTE COUNT (BEAKER) (test nqon=219) 0.67 K/ L 0.30-0.82 EOSINOPHILS ABSOLUTE COUNT (BEAKER) (test 0.23 K/ L 0.04-0.54 murr=891) BASOPHILS ABSOLUTE COUNT (BEAKER) (test xrbi=438) 0.01 K/ L 0.01-0.08 IMMATURE GRANULOCYTES-RELATIVE PERCENT (BEAKER) 1 % 0-1 (test pzcb=3990) PROTHROMBIN [id number] 06:07:00 Test Item Value Reference Range Comments PROTIME (BEAKER) (test agrt=616) 21.4 seconds 11.7-14.7 INR (BEAKER) (test lico=942) 1.9 <=5.9 RECOMMENDED COUMADIN/WARFARIN INR THERAPY RANGESSTANDARD DOSE: 2.0 - 3.0 Includes: PROPHYLAXIS forvenous thrombosis, systemic embolization; TREATMENT for venous thrombosis and/or pulmonary embolus.HIGH RISK: Target INR is 2.5-3.5 for patients with mechanical heart valves.POCT-GLUCOSE [id number] 23:37:00 Test Item Value Reference Range Comments POC-GLUCOSE METER (BEAKER) 154 mg/dL 70-110 TESTED AT [address] (test tjfa=8738) [facility] [address] BASIC METABOLIC [id number] 20:17:00 Test Item Value Reference Range Comments SODIUM (BEAKER) (test 125 meq/L 136-145 etpg=635) POTASSIUM (BEAKER) (test 4.0 meq/L 3.5-5.1 klbt=447) CHLORIDE (BEAKER) (test 94 meq/L 98-107 xsgb=419) CO2 (BEAKER) (test 25 meq/L 22-29 vqua=365) BLOOD UREA NITROGEN 20 mg/dL 7-21 (BEAKER) (test ylpr=930) CREATININE (BEAKER) (test 1.34 mg/dL 0.57-1.25 adrz=845) GLUCOSE RANDOM (BEAKER) 115 mg/dL 70-105 (test bmwv=629) CALCIUM (BEAKER) (test 8.9 mg/dL 8.4-10.2 jayx=617) EGFR (BEAKER) (test 56 mL/min/1.73 sq m ESTIMATED GFR IS NOT exoh=8268) ACCURATE CREATININE CLEARANCE IN PREDICTING GLOMERULAR FILTRATION RATE. ESTIMATED GFR IS NOT APPLICABLE FOR DIALYSIS PATIENTS. POCT-GLUCOSE [id number] 17:59:00 Test Item Value Reference Range Comments POC-GLUCOSE METER (BEAKER) 161 mg/dL 70-110 TESTED AT [address] (test geni=6746) [place] [address] BODY FLUID CULTURE + GRAM [id number] 13:31:00 Test Item Value Reference Range Comments CULTURE (BEAKER) (test mdtm=8035) No growth GRAM STAIN RESULT (BEAKER) (test No organisms seen baap=5801) GRAM STAIN RESULT (BEAKER) (test No White blood cells seen exdo=17013) POCT-GLUCOSE [id number] 12:31:00 Test Item Value Reference Range Comments POC-GLUCOSE METER (BEAKER) 114 mg/dL 70-110 TESTED AT [address] (test locg=5508) [place] [address] BASIC METABOLIC [id number] 11:33:00 Test Item Value Reference Range Comments SODIUM (BEAKER) (test 124 meq/L 136-145 esfx=775) POTASSIUM (BEAKER) (test 4.1 meq/L 3.5-5.1 fnie=084) CHLORIDE (BEAKER) (test 94 meq/L 98-107 jism=487) CO2 (BEAKER) (test 23 meq/L 22-29 fvoh=294) BLOOD UREA NITROGEN 20 mg/dL 7-21 (BEAKER) (test hfep=448) CREATININE (BEAKER) (test 1.22 mg/dL 0.57-1.25 qftb=233) GLUCOSE RANDOM (BEAKER) 94 mg/dL 70-105 (test ayqo=520) CALCIUM (BEAKER) (test 8.8 mg/dL 8.4-10.2 poyu=693) EGFR (BEAKER) (test 62 mL/min/1.73 sq m ESTIMATED GFR IS NOT cuys=2749) ACCURATE CREATININE CLEARANCE IN PREDICTING GLOMERULAR FILTRATION RATE. ESTIMATED GFR IS NOT APPLICABLE FOR DIALYSIS PATIENTS. [id number] 09:24:00 Test Item Value Reference Range Comments FERRITIN (BEAKER) (test zqxa=623) 1685 ng/mL 5-275 POCT-GLUCOSE [id number] 07:59:00 Test Item Value Reference Range Comments POC-GLUCOSE METER (BEAKER) 225 mg/dL 70-110 TESTED AT [address] (test mtba=1753) [place] [address] IRON, TIBC, % SAT. (WITHOUT FERRITIN)[id number] 07:54:00 Test Item Value Reference Range Comments IRON (BEAKER) (test msdz=771) 98 ug/dL 40-160 TOTAL IRON BINDING CAPACITY (BEAKER) (test 90 ug/dL 250-450 xhfe=778) IRON % SATURATION (2) (BEAKER) (test proo=6681) 109 % 20-55 CALCIUM, [id number] 07:13:00 Test Item Value Reference Range Comments CALCIUM IONIZED (BEAKER) (test tfwg=263) 1.10 mmol/L 1.12-1.27 PH, BLOOD (BEAKER) (test nmqc=7787) 7.37 [id number] 06:32:00 Test Item Value Reference Range Comments PHOSPHORUS (BEAKER) (test hpas=839) 2.6 mg/dL 2.3-4.7 [id number] 06:32:00 Test Item Value Reference Range Comments MAGNESIUM (BEAKER) (test lqil=284) 1.8 mg/dL 1.6-2.6 COMPREHENSIVE METABOLIC [id number] 06:32:00 Test Item Value Reference Range Comments TOTAL PROTEIN (BEAKER) 5.0 gm/dL 6.0-8.3 (test lwxt=127) ALBUMIN (BEAKER) (test 3.2 g/dL 3.5-5.0 eedn=0554) ALKALINE PHOSPHATASE 138 U/L 40-150 (BEAKER) (test jayl=089) BILIRUBIN TOTAL (BEAKER) 2.1 mg/dL 0.2-1.2 (test nfgt=678) SODIUM (BEAKER) (test 126 meq/L 136-145 lsyd=135) POTASSIUM (BEAKER) (test 4.0 meq/L 3.5-5.1 cvok=307) CHLORIDE (BEAKER) (test 95 meq/L 98-107 tjvb=905) CO2 (BEAKER) (test 23 meq/L 22-29 lntu=398) BLOOD UREA NITROGEN 21 mg/dL 7-21 (BEAKER) (test apqf=618) CREATININE (BEAKER) (test 1.15 mg/dL 0.57-1.25 kgtx=396) GLUCOSE RANDOM (BEAKER) 110 mg/dL 70-105 (test qwzg=086) CALCIUM (BEAKER) (test 8.8 mg/dL 8.4-10.2 rmcb=309) AST (SGOT) (BEAKER) (test 22 U/L 5-34 qvtp=240) ALT (SGPT) (BEAKER) (test 11 U/L 6-55 mmbo=871) EGFR (BEAKER) (test 67 mL/min/1.73 sq m ESTIMATED GFR IS NOT svnj=8808) ACCURATE CREATININE CLEARANCE IN PREDICTING GLOMERULAR FILTRATION RATE. ESTIMATED GFR IS NOT APPLICABLE FOR DIALYSIS PATIENTS. BASIC METABOLIC [id number] 06:32:00 Test Item Value Reference Range Comments SODIUM (BEAKER) (test 126 meq/L 136-145 gojj=996) POTASSIUM (BEAKER) (test 4.0 meq/L 3.5-5.1 xezu=731) CHLORIDE (BEAKER) (test 95 meq/L 98-107 uluw=943) CO2 (BEAKER) (test 23 meq/L 22-29 hymd=432) BLOOD UREA NITROGEN 21 mg/dL 7-21 (BEAKER) (test zxmi=716) CREATININE (BEAKER) (test 1.15 mg/dL 0.57-1.25 opfz=425) GLUCOSE RANDOM (BEAKER) 110 mg/dL 70-105 (test erto=446) CALCIUM (BEAKER) (test 8.8 mg/dL 8.4-10.2 ghvr=368) EGFR (BEAKER) (test 67 mL/min/1.73 sq m ESTIMATED GFR IS NOT msoy=4739) ACCURATE CREATININE CLEARANCE IN PREDICTING GLOMERULAR FILTRATION RATE. ESTIMATED GFR IS NOT APPLICABLE FOR DIALYSIS PATIENTS. BILIRUBIN, [id number] 06:32:00 Test Item Value Reference Range Comments BILIRUBIN DIRECT (BEAKER) (test natu=606) 1.4 mg/dL 0.1-0.5 PROTHROMBIN [id number] 05:44:00 Test Item Value Reference Range Comments PROTIME (BEAKER) (test dkfi=127) 20.9 seconds 11.7-14.7 INR (BEAKER) (test yfun=180) 1.8 <=5.9 RECOMMENDED COUMADIN/WARFARIN INR THERAPY RANGESSTANDARD DOSE: 2.0 - 3.0 Includes: PROPHYLAXIS forvenous thrombosis, systemic embolization; TREATMENT for venous thrombosis and/or pulmonary embolus.HIGH RISK: Target INR is 2.5-3.5 for patients with mechanical heart valves.CBC W/PLT COUNT & AUTO [id number] 05:43:00 Test Item Value Reference Range Comments WHITE BLOOD CELL COUNT (BEAKER) (test dfrb=916) 4.0 K/ L 3.5-10.5 RED BLOOD CELL COUNT (BEAKER) (test ruaa=866) 2.30 M/ L 4.63-6.08 HEMOGLOBIN (BEAKER) (test cwey=232) 7.5 GM/DL 13.7-17.5 HEMATOCRIT (BEAKER) (test xokw=044) 22.0 % 40.1-51.0 MEAN CORPUSCULAR VOLUME (BEAKER) (test kyaz=632) 95.7 fL 79.0-92.2 MEAN CORPUSCULAR HEMOGLOBIN (BEAKER) (test 32.6 pg 25.7-32.2 wzhz=795) MEAN CORPUSCULAR HEMOGLOBIN CONC (BEAKER) (test 34.1 GM/DL 32.3-36.5 jeok=074) RED CELL DISTRIBUTION WIDTH (BEAKER) (test 14.8 % 11.6-14.4 prsn=691) PLATELET COUNT (BEAKER) (test teyk=314) 51 K/CU MM 150-450 MEAN PLATELET VOLUME (BEAKER) (test yxue=076) 8.8 fL 9.4-12.4 NUCLEATED RED BLOOD CELLS (BEAKER) (test 0 /100 WBC 0-0 cepw=156) NEUTROPHILS RELATIVE PERCENT (BEAKER) (test 61 % lltz=208) LYMPHOCYTES RELATIVE PERCENT (BEAKER) (test 12 % uzof=615) MONOCYTES RELATIVE PERCENT (BEAKER) (test 19 % pdlm=413) EOSINOPHILS RELATIVE PERCENT (BEAKER) (test 7 % czow=241) BASOPHILS RELATIVE PERCENT (BEAKER) (test 0 % yskm=704) NEUTROPHILS ABSOLUTE COUNT (BEAKER) (test 2.43 K/ L 1.78-5.38 dzlw=990) LYMPHOCYTES ABSOLUTE COUNT (BEAKER) (test 0.49 K/ L 1.32-3.57 zqqy=718) MONOCYTES ABSOLUTE COUNT (BEAKER) (test wjlb=746) 0.75 K/ L 0.30-0.82 EOSINOPHILS ABSOLUTE COUNT (BEAKER) (test 0.29 K/ L 0.04-0.54 qkbo=725) BASOPHILS ABSOLUTE COUNT (BEAKER) (test zxpz=747) 0.00 K/ L 0.01-0.08 IMMATURE GRANULOCYTES-RELATIVE PERCENT (BEAKER) 1 % 0-1 (test jimr=0999) POCT-GLUCOSE [id number] 22:23:00 Test Item Value Reference Range Comments POC-GLUCOSE METER (BEAKER) 166 mg/dL 70-110 TESTED AT [place] [id number] [facility] (test mvyd=9135) [facility] [address] POCT-GLUCOSE [id number] 16:12:00 Test Item Value Reference Range Comments POC-GLUCOSE METER (BEAKER) 110 mg/dL 70-110 TESTED AT [address] (test degm=9912) [facility] [address] PTH, [id number] 15:57:00 Test Item Value Reference Range Comments PARATHYROID HORMONE INTACT (BEAKER) (test 26.2 pg/mL 8.5-72.5 adyc=143) GAMMA GLUTAMYL TRANSFERASE (GGT)[id number] 15:51:00 Test Item Value Reference Range Comments GAMMA GLUTAMYL TRANSFERASE (BEAKER) (test dcgd=923) 11 U/L 9-64 BASIC METABOLIC [id number] 15:49:00 Test Item Value Reference Range Comments SODIUM (BEAKER) (test 127 meq/L 136-145 uvto=686) POTASSIUM (BEAKER) (test 3.6 meq/L 3.5-5.1 julo=747) CHLORIDE (BEAKER) (test 97 meq/L 98-107 ouvy=514) CO2 (BEAKER) (test 23 meq/L 22-29 dexy=479) BLOOD UREA NITROGEN 20 mg/dL 7-21 (BEAKER) (test ilbk=906) CREATININE (BEAKER) (test 1.19 mg/dL 0.57-1.25 klgy=004) GLUCOSE RANDOM (BEAKER) 123 mg/dL 70-105 (test yhwi=538) CALCIUM (BEAKER) (test 8.6 mg/dL 8.4-10.2 audj=205) EGFR (BEAKER) (test 64 mL/min/1.73 sq m ESTIMATED GFR IS NOT nsma=5442) ACCURATE CREATININE CLEARANCE IN PREDICTING GLOMERULAR FILTRATION RATE. ESTIMATED GFR IS NOT APPLICABLE FOR DIALYSIS PATIENTS. VITAMIN D, [id number] 15:24:00 Test Item Value Reference Range Comments VITAMIN D 25-OH (BEAKER) (test isde=3110) 11.2 ng/mL 6.6-49.9 Effective 08/06/2017: Reference Range ChangeNew: 6.6-49.9 ng/mL Previous: 13.0 -47.8 ng/mLRecommended Vitamin D Target Range: 30.0-40.0 ng/mLPOCT-GLUCOSE [id number] 12:35:00 Test Item Value Reference Range Comments POC-GLUCOSE METER (BEAKER) 138 mg/dL 70-110 TESTED AT [address] (test frbq=6104) [place] [address] BASIC METABOLIC [id number] 09:59:00 Test Item Value Reference Range Comments SODIUM (BEAKER) (test 130 meq/L 136-145 iyzg=213) POTASSIUM (BEAKER) (test 4.1 meq/L 3.5-5.1 ppou=248) CHLORIDE (BEAKER) (test 99 meq/L 98-107 hxcd=914) CO2 (BEAKER) (test 24 meq/L 22-29 rvvc=934) BLOOD UREA NITROGEN 22 mg/dL 7-21 (BEAKER) (test uwex=672) CREATININE (BEAKER) (test 1.31 mg/dL 0.57-1.25 foak=745) GLUCOSE RANDOM (BEAKER) 121 mg/dL 70-105 (test urdw=743) CALCIUM (BEAKER) (test 9.4 mg/dL 8.4-10.2 ljbt=310) EGFR (BEAKER) (test 57 mL/min/1.73 sq m ESTIMATED GFR IS NOT fjrx=3610) ACCURATE CREATININE CLEARANCE IN PREDICTING GLOMERULAR FILTRATION RATE. ESTIMATED GFR IS NOT APPLICABLE FOR DIALYSIS PATIENTS. POCT-GLUCOSE [id number] 08:17:00 Test Item Value Reference Range Comments POC-GLUCOSE METER (BEAKER) 131 mg/dL 70-110 TESTED AT [address] (test ugxq=7438) [place] [address] CALCIUM, [id number] 06:01:00 Test Item Value Reference Range Comments CALCIUM IONIZED (BEAKER) (test zwcr=833) 1.06 mmol/L 1.12-1.27 PH, BLOOD (BEAKER) (test xdwf=0688) 7.42 [id number] 05:52:00 Test Item Value Reference Range Comments PHOSPHORUS (BEAKER) (test mwlg=189) 3.1 mg/dL 2.3-4.7 [id number] 05:52:00 Test Item Value Reference Range Comments MAGNESIUM (BEAKER) (test fhrl=560) 2.3 mg/dL 1.6-2.6 BASIC METABOLIC [id number] 05:52:00 Test Item Value Reference Range Comments SODIUM (BEAKER) (test 130 meq/L 136-145 rnpi=015) POTASSIUM (BEAKER) (test 3.8 meq/L 3.5-5.1 igms=495) CHLORIDE (BEAKER) (test 98 meq/L 98-107 uruu=079) CO2 (BEAKER) (test 22 meq/L 22-29 yhzu=964) BLOOD UREA NITROGEN 22 mg/dL 7-21 (BEAKER) (test nufm=517) CREATININE (BEAKER) (test 1.37 mg/dL 0.57-1.25 laax=647) GLUCOSE RANDOM (BEAKER) 118 mg/dL 70-105 (test yigw=009) CALCIUM (BEAKER) (test 9.6 mg/dL 8.4-10.2 uqan=421) EGFR (BEAKER) (test 54 mL/min/1.73 sq m ESTIMATED GFR IS NOT slio=8636) ACCURATE CREATININE CLEARANCE IN PREDICTING GLOMERULAR FILTRATION RATE. ESTIMATED GFR IS NOT APPLICABLE FOR DIALYSIS PATIENTS. Specimen slightly ictericCOMPREHENSIVE METABOLIC [id number] 05:52:00 Test Item Value Reference Range Comments TOTAL PROTEIN (BEAKER) 5.6 gm/dL 6.0-8.3 (test qvfa=474) ALBUMIN (BEAKER) (test 3.6 g/dL 3.5-5.0 ekcu=9727) ALKALINE PHOSPHATASE 146 U/L 40-150 (BEAKER) (test hxix=097) BILIRUBIN TOTAL (BEAKER) 2.5 mg/dL 0.2-1.2 (test amtn=857) SODIUM (BEAKER) (test 130 meq/L 136-145 keeh=979) POTASSIUM (BEAKER) (test 3.8 meq/L 3.5-5.1 eufa=677) CHLORIDE (BEAKER) (test 98 meq/L 98-107 jwzf=827) CO2 (BEAKER) (test 22 meq/L 22-29 ymka=579) BLOOD UREA NITROGEN 22 mg/dL 7-21 (BEAKER) (test keul=304) CREATININE (BEAKER) (test 1.37 mg/dL 0.57-1.25 btgv=591) GLUCOSE RANDOM (BEAKER) 118 mg/dL 70-105 (test usmo=682) CALCIUM (BEAKER) (test 9.6 mg/dL 8.4-10.2 gedi=429) AST (SGOT) (BEAKER) (test 25 U/L 5-34 udfq=767) ALT (SGPT) (BEAKER) (test 10 U/L 6-55 rgpi=278) EGFR (BEAKER) (test 54 mL/min/1.73 sq m ESTIMATED GFR IS NOT ulzj=4202) ACCURATE CREATININE CLEARANCE IN PREDICTING GLOMERULAR FILTRATION RATE. ESTIMATED GFR IS NOT APPLICABLE FOR DIALYSIS PATIENTS. Specimen slightly ictericBILIRUBIN, [id number] 05:52:00 Test Item Value Reference Range Comments BILIRUBIN DIRECT (BEAKER) (test kkpg=626) 1.6 mg/dL 0.1-0.5 PROTHROMBIN [id number] 05:41:00 Test Item Value Reference Range Comments PROTIME (BEAKER) (test goqa=588) 21.3 seconds 11.7-14.7 INR (BEAKER) (test nucr=495) 1.8 <=5.9 RECOMMENDED COUMADIN/WARFARIN INR THERAPY RANGESSTANDARD DOSE: 2.0 - 3.0 Includes: PROPHYLAXIS forvenous thrombosis, systemic embolization; TREATMENT for venous thrombosis and/or pulmonary embolus.HIGH RISK: Target INR is 2.5-3.5 for patients with mechanical heart valves.CBC W/PLT COUNT & AUTO [id number] 05:32:00 Test Item Value Reference Range Comments WHITE BLOOD CELL COUNT (BEAKER) (test hmxt=332) 5.0 K/ L 3.5-10.5 RED BLOOD CELL COUNT (BEAKER) (test uvai=330) 2.53 M/ L 4.63-6.08 HEMOGLOBIN (BEAKER) (test mzcm=232) 8.1 GM/DL 13.7-17.5 HEMATOCRIT (BEAKER) (test iriq=081) 23.6 % 40.1-51.0 MEAN CORPUSCULAR VOLUME (BEAKER) (test cxri=493) 93.3 fL 79.0-92.2 MEAN CORPUSCULAR HEMOGLOBIN (BEAKER) (test 32.0 pg 25.7-32.2 aoyt=438) MEAN CORPUSCULAR HEMOGLOBIN CONC (BEAKER) (test 34.3 GM/DL 32.3-36.5 phab=588) RED CELL DISTRIBUTION WIDTH (BEAKER) (test 14.6 % 11.6-14.4 plmm=999) PLATELET COUNT (BEAKER) (test rceg=992) 73 K/CU MM 150-450 MEAN PLATELET VOLUME (BEAKER) (test gvuf=709) 8.8 fL 9.4-12.4 NUCLEATED RED BLOOD CELLS (BEAKER) (test 0 /100 WBC 0-0 subn=316) NEUTROPHILS RELATIVE PERCENT (BEAKER) (test 71 % pupi=307) LYMPHOCYTES RELATIVE PERCENT (BEAKER) (test 10 % ikqj=519) MONOCYTES RELATIVE PERCENT (BEAKER) (test 16 % swha=911) EOSINOPHILS RELATIVE PERCENT (BEAKER) (test 3 % frea=934) BASOPHILS RELATIVE PERCENT (BEAKER) (test 0 % xasa=938) NEUTROPHILS ABSOLUTE COUNT (BEAKER) (test 3.56 K/ L 1.78-5.38 iede=242) LYMPHOCYTES ABSOLUTE COUNT (BEAKER) (test 0.48 K/ L 1.32-3.57 drjz=102) MONOCYTES ABSOLUTE COUNT (BEAKER) (test sctz=051) 0.80 K/ L 0.30-0.82 EOSINOPHILS ABSOLUTE COUNT (BEAKER) (test 0.13 K/ L 0.04-0.54 pfmi=256) BASOPHILS ABSOLUTE COUNT (BEAKER) (test hgrt=375) 0.01 K/ L 0.01-0.08 IMMATURE GRANULOCYTES-RELATIVE PERCENT (BEAKER) 1 % 0-1 (test ppmh=2111) POCT-GLUCOSE [id number] 21:24:00 Test Item Value Reference Range Comments POC-GLUCOSE METER (BEAKER) 137 mg/dL 70-110 TESTED AT [address] (test txhc=1918) [place] [address] POCT-GLUCOSE [id number] 17:52:00 Test Item Value Reference Range Comments POC-GLUCOSE METER (BEAKER) 166 mg/dL 70-110 TESTED AT [address] (test vbbu=7685) [place] [address] BASIC METABOLIC [id number] 17:48:00 Test Item Value Reference Range Comments SODIUM (BEAKER) (test 128 meq/L 136-145 mqtk=652) POTASSIUM (BEAKER) (test 4.0 meq/L 3.5-5.1 djkf=425) CHLORIDE (BEAKER) (test 97 meq/L 98-107 gofu=384) CO2 (BEAKER) (test 23 meq/L 22-29 ocaw=638) BLOOD UREA NITROGEN 24 mg/dL 7-21 (BEAKER) (test nnbu=357) CREATININE (BEAKER) (test 1.25 mg/dL 0.57-1.25 xfvh=848) GLUCOSE RANDOM (BEAKER) 123 mg/dL 70-105 (test wbua=021) CALCIUM (BEAKER) (test 8.9 mg/dL 8.4-10.2 stsi=560) EGFR (BEAKER) (test 60 mL/min/1.73 sq m ESTIMATED GFR IS NOT fgko=6547) ACCURATE CREATININE CLEARANCE IN PREDICTING GLOMERULAR FILTRATION RATE. ESTIMATED GFR IS NOT APPLICABLE FOR DIALYSIS PATIENTS. POCT-GLUCOSE [id number] 12:18:00 Test Item Value Reference Range Comments POC-GLUCOSE METER (BEAKER) 152 mg/dL 70-110 TESTED AT [place] [id number] [facility] (test gesi=3605) [place] [address] POCT-GLUCOSE [id number] 09:31:00 Test Item Value Reference Range Comments POC-GLUCOSE METER (BEAKER) 142 mg/dL 70-110 TESTED AT [place] [id number] [facility] (test kmns=5874) [place] [id number] BASIC METABOLIC [id number] 09:03:00 Test Item Value Reference Range Comments SODIUM (BEAKER) (test 125 meq/L 136-145 fzox=152) POTASSIUM (BEAKER) (test 5.1 meq/L 3.5-5.1 Specimen slightly ynvf=548) hemolyzed CHLORIDE (BEAKER) (test 95 meq/L 98-107 iawq=346) CO2 (BEAKER) (test 23 meq/L 22-29 tprc=720) BLOOD UREA NITROGEN 26 mg/dL 7-21 (BEAKER) (test wrje=753) CREATININE (BEAKER) (test 1.25 mg/dL 0.57-1.25 Specimen slightly xrsg=530) hemolyzed GLUCOSE RANDOM (BEAKER) 99 mg/dL 70-105 (test iamc=723) CALCIUM (BEAKER) (test 9.0 mg/dL 8.4-10.2 tdob=530) EGFR (BEAKER) (test 60 mL/min/1.73 sq m ESTIMATED GFR IS NOT tytp=0510) ACCURATE CREATININE CLEARANCE IN PREDICTING GLOMERULAR FILTRATION RATE. ESTIMATED GFR IS NOT APPLICABLE FOR DIALYSIS PATIENTS. POCT-GLUCOSE [id number] 08:38:00 Test Item Value Reference Range Comments POC-GLUCOSE METER (BEAKER) 171 mg/dL 70-110 TESTED AT [facility] [address] [facility] (test zzwr=6637) [facility] [address] [id number] 05:30:00 Test Item Value Reference Range Comments PHOSPHORUS (BEAKER) (test cqxn=165) 2.9 mg/dL 2.3-4.7 [id number] 05:30:00 Test Item Value Reference Range Comments MAGNESIUM (BEAKER) (test pmed=966) 2.2 mg/dL 1.6-2.6 COMPREHENSIVE METABOLIC [id number] 05:30:00 Test Item Value Reference Range Comments TOTAL PROTEIN (BEAKER) 5.2 gm/dL 6.0-8.3 (test yhuk=883) ALBUMIN (BEAKER) (test 3.4 g/dL 3.5-5.0 vxbx=4451) ALKALINE PHOSPHATASE 134 U/L 40-150 (BEAKER) (test icyu=308) BILIRUBIN TOTAL (BEAKER) 2.3 mg/dL 0.2-1.2 (test hqea=142) SODIUM (BEAKER) (test 124 meq/L 136-145 bsio=902) POTASSIUM (BEAKER) (test 4.9 meq/L 3.5-5.1 jmsq=950) CHLORIDE (BEAKER) (test 94 meq/L 98-107 upig=685) CO2 (BEAKER) (test 24 meq/L 22-29 zrhx=871) BLOOD UREA NITROGEN 27 mg/dL 7-21 (BEAKER) (test cqet=383) CREATININE (BEAKER) (test 1.27 mg/dL 0.57-1.25 lqgi=433) GLUCOSE RANDOM (BEAKER) 122 mg/dL 70-105 (test hwyp=402) CALCIUM (BEAKER) (test 9.2 mg/dL 8.4-10.2 rhip=642) AST (SGOT) (BEAKER) (test 24 U/L 5-34 dnjj=351) ALT (SGPT) (BEAKER) (test 10 U/L 6-55 jgah=212) EGFR (BEAKER) (test 59 mL/min/1.73 sq m ESTIMATED GFR IS NOT cnrl=7581) ACCURATE CREATININE CLEARANCE IN PREDICTING GLOMERULAR FILTRATION RATE. ESTIMATED GFR IS NOT APPLICABLE FOR DIALYSIS PATIENTS. BILIRUBIN, [id number] 05:30:00 Test Item Value Reference Range Comments BILIRUBIN DIRECT (BEAKER) (test lrmb=015) 1.5 mg/dL 0.1-0.5 PROTHROMBIN [id number] 05:09:00 Test Item Value Reference Range Comments PROTIME (BEAKER) (test kzxd=965) 22.3 seconds 11.7-14.7 INR (BEAKER) (test inyt=415) 2.0 <=5.9 RECOMMENDED COUMADIN/WARFARIN INR THERAPY RANGESSTANDARD DOSE: 2.0 - 3.0 Includes: PROPHYLAXIS forvenous thrombosis, systemic embolization; TREATMENT for venous thrombosis and/or pulmonary embolus.HIGH RISK: Target INR is 2.5-3.5 for patients with mechanical heart valves.CBC W/PLT COUNT & AUTO [id number] 04:59:00 Test Item Value Reference Range Comments WHITE BLOOD CELL COUNT (BEAKER) (test lpnz=419) 5.0 K/ L 3.5-10.5 RED BLOOD CELL COUNT (BEAKER) (test kzml=030) 2.24 M/ L 4.63-6.08 HEMOGLOBIN (BEAKER) (test xtwm=555) 7.2 GM/DL 13.7-17.5 HEMATOCRIT (BEAKER) (test klox=850) 20.8 % 40.1-51.0 MEAN CORPUSCULAR VOLUME (BEAKER) (test dbnj=986) 92.9 fL 79.0-92.2 MEAN CORPUSCULAR HEMOGLOBIN (BEAKER) (test 32.1 pg 25.7-32.2 uggp=329) MEAN CORPUSCULAR HEMOGLOBIN CONC (BEAKER) (test 34.6 GM/DL 32.3-36.5 rjvn=063) RED CELL DISTRIBUTION WIDTH (BEAKER) (test 14.2 % 11.6-14.4 eyjh=643) PLATELET COUNT (BEAKER) (test sgvw=804) 56 K/CU MM 150-450 MEAN PLATELET VOLUME (BEAKER) (test xrxp=934) 8.9 fL 9.4-12.4 NUCLEATED RED BLOOD CELLS (BEAKER) (test 0 /100 WBC 0-0 rrys=088) NEUTROPHILS RELATIVE PERCENT (BEAKER) (test 82 % tlga=236) LYMPHOCYTES RELATIVE PERCENT (BEAKER) (test 5 % xdpz=255) MONOCYTES RELATIVE PERCENT (BEAKER) (test 12 % lpie=117) EOSINOPHILS RELATIVE PERCENT (BEAKER) (test 0 % zvlm=769) BASOPHILS RELATIVE PERCENT (BEAKER) (test 0 % cgdi=492) NEUTROPHILS ABSOLUTE COUNT (BEAKER) (test 4.12 K/ L 1.78-5.38 rvvo=526) LYMPHOCYTES ABSOLUTE COUNT (BEAKER) (test 0.26 K/ L 1.32-3.57 cxyx=285) MONOCYTES ABSOLUTE COUNT (BEAKER) (test lslh=919) 0.59 K/ L 0.30-0.82 EOSINOPHILS ABSOLUTE COUNT (BEAKER) (test 0.00 K/ L 0.04-0.54 lfkv=391) BASOPHILS ABSOLUTE COUNT (BEAKER) (test pzzj=894) 0.00 K/ L 0.01-0.08 IMMATURE GRANULOCYTES-RELATIVE PERCENT (BEAKER) 1 % 0-1 (test dbgu=6861) CALCIUM, [id number] 04:57:00 Test Item Value Reference Range Comments CALCIUM IONIZED (BEAKER) (test rtru=723) 1.14 mmol/L 1.12-1.27 PH, BLOOD (BEAKER) (test vfty=1206) 7.39 POCT-GLUCOSE [id number] 00:41:00 Test Item Value Reference Range Comments POC-GLUCOSE METER (BEAKER) 186 mg/dL 70-110 TESTED AT [facility] [address] [facility] (test wgef=1004) [facility] [address] CORTISOL,60 [id number] 23:00:00 Test Item Value Reference Range Comments CORTISOL BASELINE NETWORKED (BEAKER) (test 7.5 mcg/dL legv=1319) CORTISOL 30 MINUTE NETWORKED (BEAKER) (test 14.1 mcg/dL lzgi=1051) CORTISOL, 60 MINUTE (BEAKER) (test qzgu=1376) 18.9 ug/dL ACTH STIMULATION TEST INTERPRETATION GUIDELINES(Synonyms: [...] serum cortisollevel 60 minutes after cosyntropin administration.CORTISOL,30 [id number] 22:05:00 Test Item Value Reference Range Comments CORTISOL BASELINE NETWORKED (BEAKER) (test 7.5 mcg/dL ttpt=1569) CORTISOL, 30 MINUTE (BEAKER) (test mavh=4540) 14.1 ug/dL ACTH STIMULATION TEST INTERPRETATION GUIDELINES(Synonyms: [...] cortisollevel 60 minutes after cosyntropin administration.BASIC METABOLIC [id number] 21:42:00 Test Item Value Reference Range Comments SODIUM (BEAKER) (test 123 meq/L 136-145 zbvk=473) POTASSIUM (BEAKER) (test 4.3 meq/L 3.5-5.1 fwcc=965) CHLORIDE (BEAKER) (test 93 meq/L 98-107 zjol=523) CO2 (BEAKER) (test 24 meq/L 22-29 curn=826) BLOOD UREA NITROGEN 29 mg/dL 7-21 (BEAKER) (test flbn=864) CREATININE (BEAKER) (test 1.38 mg/dL 0.57-1.25 wcol=613) GLUCOSE RANDOM (BEAKER) 109 mg/dL 70-105 (test mwdn=757) CALCIUM (BEAKER) (test 9.2 mg/dL 8.4-10.2 cwwm=754) EGFR (BEAKER) (test 54 mL/min/1.73 sq m ESTIMATED GFR IS NOT wrph=7135) ACCURATE CREATININE CLEARANCE IN PREDICTING GLOMERULAR FILTRATION RATE. ESTIMATED GFR IS NOT APPLICABLE FOR DIALYSIS PATIENTS. Call results to Dr Almendarez METABOLIC [id number] 18:03:00 Test Item Value Reference Range Comments SODIUM (BEAKER) (test 124 meq/L 136-145 vxnu=434) POTASSIUM (BEAKER) (test 4.6 meq/L 3.5-5.1 flpm=393) CHLORIDE (BEAKER) (test 93 meq/L 98-107 dnco=639) CO2 (BEAKER) (test 25 meq/L 22-29 zrvb=447) BLOOD UREA NITROGEN 32 mg/dL 7-21 (BEAKER) (test wzdw=654) CREATININE (BEAKER) (test 1.40 mg/dL 0.57-1.25 xajl=497) GLUCOSE RANDOM (BEAKER) 94 mg/dL 70-105 (test qalf=219) CALCIUM (BEAKER) (test 9.0 mg/dL 8.4-10.2 namb=127) EGFR (BEAKER) (test 53 mL/min/1.73 sq m ESTIMATED GFR IS NOT wkcd=3023) ACCURATE CREATININE CLEARANCE IN PREDICTING GLOMERULAR FILTRATION RATE. ESTIMATED GFR IS NOT APPLICABLE FOR DIALYSIS PATIENTS. BODY FLUID CELL COUNT WITH [id number] 13:54:00 Test Item Value Reference Range Comments APPEARANCE FLUID (BEAKER) (test octb=920) Slightly Hazy Clear COLOR FLUID (BEAKER) (test wofe=460) Yellow Colorless, Straw RBC FLUID (BEAKER) (test jpcl=184) 1000 /cu mm <=1 ADJUSTED WBC FLUID (BEAKER) (test knzz=3008) 54 /cu mm <=5 LINING CELLS (BEAKER) (test jfmm=9907) 2 /cu mm <=1 NEUTROPHILS FLUID (BEAKER) (test ikow=8103) 6 % LYMPHS FLUID (BEAKER) (test ciln=305) 25 % MONO/MACROPHAGE FLUID (BEAKER) (test 69 % uiys=116) EOSINOPHILS FLUID (BEAKER) (test wfxv=092) 0 % BASO FLUID (BEAKER) (test rhxd=307) 0 % CONTAINER BODY FLUID (BEAKER) (test Sterile Vial owuj=8057) ALBUMIN, BODY [id number] 13:45:00 Test Item Value Reference Range Comments ALBUMIN FLUID (BEAKER) (test fepy=611) 0.8 gm/dL Reference Range: No Normals Assay performance has not been validated for this type of specimen.LACTATE DEHYDROGENASE (LDH), BODY [id number] 13:13:00 Test Item Value Reference Range Comments LACTATE DEHYDROGENASE FLUID (BEAKER) (test cfkb=016) < U/L Absence of reference range indicates that normals have not been defined.Assay performance has not been validated for this type of specimen.GLUCOSE, BODY [id number] 13:13:00 Test Item Value Reference Range Comments GLUCOSE, BODY FLUID (BEAKER) (test wbdp=6584) 82 mg/dL Absence of reference range indicates that normals have not been defined.Assay performance has not been validated for this type of specimen.TRIGLYCERIDES, BODY [id number] 13:10:00 Test Item Value Reference Range Comments TRIGLYCERIDES FLUID (BEAKER) (test yewm=708) 39 mg/dL Reference Range: No Normals Assay performance has not been validated for this type of specimen.PROTEIN, BODY [id number] 13:09:00 Test Item Value Reference Range Comments PROTEIN FLUID (BEAKER) (test vkpw=968) 1.2 g/dL Absence of reference range indicates that normals have not been defined.Assay performance has not been validated for this type of specimen.CORTISOL, [id number] 12:52:00 Test Item Value Reference Range Comments CORTISOL, BASELINE (BEAKER) (test vpfs=3529) 7.5 ug/dL ACTH STIMULATION TEST INTERPRETATION GUIDELINES(Synonyms: [...] or septicshock: According to a study by Annane et al (NEVAEH 2000,283( 8):1970-45), the ACTH Stimulation Test provides important prognostic [...] cortisollevel 60 minutes after cosyntropin administration.BASIC METABOLIC [id number] 12:40:00 Test Item Value Reference Range Comments SODIUM (BEAKER) (test 119 meq/L 136-145 lowt=986) POTASSIUM (BEAKER) (test 5.2 meq/L 3.5-5.1 bggw=919) CHLORIDE (BEAKER) (test 90 meq/L 98-107 attm=989) CO2 (BEAKER) (test 23 meq/L 22-29 ozui=255) BLOOD UREA NITROGEN 34 mg/dL 7-21 (BEAKER) (test vfso=580) CREATININE (BEAKER) (test 1.46 mg/dL 0.57-1.25 ordr=147) GLUCOSE RANDOM (BEAKER) 84 mg/dL 70-105 (test ldgg=054) CALCIUM (BEAKER) (test 8.8 mg/dL 8.4-10.2 sjqt=674) EGFR (BEAKER) (test 51 mL/min/1.73 sq m ESTIMATED GFR IS NOT wqnf=1982) ACCURATE CREATININE CLEARANCE IN PREDICTING GLOMERULAR FILTRATION RATE. ESTIMATED GFR IS NOT APPLICABLE FOR DIALYSIS PATIENTS. Specimen slightly ictericRAD, CHEST, 1 VIEW, NON [id number] 11:50:00Reason for exam:->coughShould this be performed at the bedside?->YesFINAL REPORT Chest one view compared to May 12, 2018 Discussion: There is diffuse interstitial prominence. No effusion or pneumothorax. Heart size normal. IMPRESSIONS: No changeSigned: Karina Pughepelif Verified Date/ Time: 08/26/2018 11:50:19 Reading Location: [facility] Radiology Reading Room BASIC METABOLIC [id number] 09:35:00 Test Item Value Reference Range Comments SODIUM (BEAKER) (test 119 meq/L 136-145 lmqi=702) POTASSIUM (BEAKER) (test 4.9 meq/L 3.5-5.1 bonj=113) CHLORIDE (BEAKER) (test 89 meq/L 98-107 nwoi=315) CO2 (BEAKER) (test 23 meq/L 22-29 yinq=840) BLOOD UREA NITROGEN 36 mg/dL 7-21 (BEAKER) (test rbii=107) CREATININE (BEAKER) (test 1.46 mg/dL 0.57-1.25 eldb=393) GLUCOSE RANDOM (BEAKER) 83 mg/dL 70-105 (test mhjq=273) CALCIUM (BEAKER) (test 8.8 mg/dL 8.4-10.2 zkgd=630) EGFR (BEAKER) (test 51 mL/min/1.73 sq m ESTIMATED GFR IS NOT cslc=4327) ACCURATE CREATININE CLEARANCE IN PREDICTING GLOMERULAR FILTRATION RATE. ESTIMATED GFR IS NOT APPLICABLE FOR DIALYSIS PATIENTS. POCT-GLUCOSE [id number] 05:56:00 Test Item Value Reference Range Comments POC-GLUCOSE METER (BEAKER) 86 mg/dL 70-110 TESTED AT [address] (test leam=9021) [facility] [address] CBC W/PLT COUNT & AUTO [id number] 04:42:00 Test Item Value Reference Range Comments WHITE BLOOD CELL COUNT (BEAKER) (test fgic=754) 10.5 K/ L 3.5-10.5 RED BLOOD CELL COUNT (BEAKER) (test gbxq=914) 2.37 M/ L 4.63-6.08 HEMOGLOBIN (BEAKER) (test uevj=476) 7.4 GM/DL 13.7-17.5 HEMATOCRIT (BEAKER) (test esue=757) 21.6 % 40.1-51.0 MEAN CORPUSCULAR VOLUME (BEAKER) (test kkar=952) 91.1 fL 79.0-92.2 MEAN CORPUSCULAR HEMOGLOBIN (BEAKER) (test 31.2 pg 25.7-32.2 mwvm=412) MEAN CORPUSCULAR HEMOGLOBIN CONC (BEAKER) (test 34.3 GM/DL 32.3-36.5 oslj=785) RED CELL DISTRIBUTION WIDTH (BEAKER) (test 14.4 % 11.6-14.4 xluj=325) PLATELET COUNT (BEAKER) (test teaz=695) 67 K/CU MM 150-450 MEAN PLATELET VOLUME (BEAKER) (test djmw=543) 8.3 fL 9.4-12.4 NUCLEATED RED BLOOD CELLS (BEAKER) (test 0 /100 WBC 0-0 ktqo=436) NEUTROPHILS RELATIVE PERCENT (BEAKER) (test 82 % sbzw=736) LYMPHOCYTES RELATIVE PERCENT (BEAKER) (test 4 % mcgz=492) MONOCYTES RELATIVE PERCENT (BEAKER) (test 12 % bxbf=187) EOSINOPHILS RELATIVE PERCENT (BEAKER) (test 1 % mowk=208) BASOPHILS RELATIVE PERCENT (BEAKER) (test 0 % dvrt=658) NEUTROPHILS ABSOLUTE COUNT (BEAKER) (test 8.62 K/ L 1.78-5.38 mkbg=687) LYMPHOCYTES ABSOLUTE COUNT (BEAKER) (test 0.45 K/ L 1.32-3.57 tlje=124) MONOCYTES ABSOLUTE COUNT (BEAKER) (test svfv=695) 1.31 K/ L 0.30-0.82 EOSINOPHILS ABSOLUTE COUNT (BEAKER) (test 0.10 K/ L 0.04-0.54 mdob=321) BASOPHILS ABSOLUTE COUNT (BEAKER) (test fycj=454) 0.00 K/ L 0.01-0.08 IMMATURE GRANULOCYTES-RELATIVE PERCENT (BEAKER) 1 % 0-1 (test bhky=8669) COMPREHENSIVE METABOLIC [id number] 04:36:00 Test Item Value Reference Range Comments TOTAL PROTEIN (BEAKER) 4.9 gm/dL 6.0-8.3 (test oxuu=878) ALBUMIN (BEAKER) (test 2.8 g/dL 3.5-5.0 cezm=8644) ALKALINE PHOSPHATASE 146 U/L 40-150 (BEAKER) (test fmni=322) BILIRUBIN TOTAL (BEAKER) 2.9 mg/dL 0.2-1.2 (test glwf=327) SODIUM (BEAKER) (test 118 meq/L 136-145 pjlj=746) POTASSIUM (BEAKER) (test 5.2 meq/L 3.5-5.1 jbwj=333) CHLORIDE (BEAKER) (test 90 meq/L 98-107 jlfo=883) CO2 (BEAKER) (test 23 meq/L 22-29 vidv=261) BLOOD UREA NITROGEN 37 mg/dL 7-21 (BEAKER) (test vtcb=103) CREATININE (BEAKER) (test 1.47 mg/dL 0.57-1.25 ronm=974) GLUCOSE RANDOM (BEAKER) 65 mg/dL 70-105 (test fxoc=536) CALCIUM (BEAKER) (test 8.9 mg/dL 8.4-10.2 gwpb=741) AST (SGOT) (BEAKER) (test 29 U/L 5-34 hipg=933) ALT (SGPT) (BEAKER) (test 10 U/L 6-55 xbom=165) EGFR (BEAKER) (test 50 mL/min/1.73 sq m ESTIMATED GFR IS NOT vnee=3285) ACCURATE CREATININE CLEARANCE IN PREDICTING GLOMERULAR FILTRATION RATE. ESTIMATED GFR IS NOT APPLICABLE FOR DIALYSIS PATIENTS. Specimen slightly [id number] 04:33:00 Test Item Value Reference Range Comments PHOSPHORUS (BEAKER) (test glby=686) 3.1 mg/dL 2.3-4.7 [id number] 04:33:00 Test Item Value Reference Range Comments MAGNESIUM (BEAKER) (test jgfb=749) 2.1 mg/dL 1.6-2.6 CALCIUM, [id number] 04:05:00 Test Item Value Reference Range Comments CALCIUM IONIZED (BEAKER) (test tfld=538) 1.13 mmol/L 1.12-1.27 PH, BLOOD (BEAKER) (test xyjy=7296) 7.38 BASIC METABOLIC [id number] 01:34:00 Test Item Value Reference Range Comments SODIUM (BEAKER) (test 117 meq/L 136-145 xrzv=497) POTASSIUM (BEAKER) (test 4.9 meq/L 3.5-5.1 qgyn=557) CHLORIDE (BEAKER) (test 89 meq/L 98-107 rzok=755) CO2 (BEAKER) (test 22 meq/L 22-29 dbwp=998) BLOOD UREA NITROGEN 37 mg/dL 7-21 (BEAKER) (test zzkv=435) CREATININE (BEAKER) (test 1.52 mg/dL 0.57-1.25 tmkl=486) GLUCOSE RANDOM (BEAKER) 67 mg/dL 70-105 (test lwvk=061) CALCIUM (BEAKER) (test 9.1 mg/dL 8.4-10.2 ibdz=132) EGFR (BEAKER) (test 48 mL/min/1.73 sq m ESTIMATED GFR IS NOT aaaf=0229) ACCURATE CREATININE CLEARANCE IN PREDICTING GLOMERULAR FILTRATION RATE. ESTIMATED GFR IS NOT APPLICABLE FOR DIALYSIS PATIENTS. Specimen slightly ictericU/S, ABDOMINAL, [id number] 23:49:00Abdomen limited area? Add comment if clarification [...] MDReport Verified Date/Time: 08/25/2018 23:49:36 Reading Location: [facility] C013Y CT Body Reading Room POCT-GLUCOSE [id number] 23:16:00 Test Item Value Reference Range Comments POC-GLUCOSE METER (BEAKER) 89 mg/dL 70-110 TESTED AT [address] (test mygx=5791) [facility] [address] COMPREHENSIVE METABOLIC [id number] 21:15:00 Test Item Value Reference Range Comments TOTAL PROTEIN (BEAKER) 5.4 gm/dL 6.0-8.3 (test cmjg=343) ALBUMIN (BEAKER) (test 3.1 g/dL 3.5-5.0 cuzm=3836) ALKALINE PHOSPHATASE 164 U/L 40-150 (BEAKER) (test wvua=027) BILIRUBIN TOTAL (BEAKER) 3.1 mg/dL 0.2-1.2 (test hudy=292) SODIUM (BEAKER) (test 116 meq/L 136-145 kncn=862) POTASSIUM (BEAKER) (test 5.0 meq/L 3.5-5.1 qtcx=529) CHLORIDE (BEAKER) (test 87 meq/L 98-107 xetp=912) CO2 (BEAKER) (test 22 meq/L 22-29 lxnt=932) BLOOD UREA NITROGEN 38 mg/dL 7-21 (BEAKER) (test wvjx=167) CREATININE (BEAKER) (test 1.52 mg/dL 0.57-1.25 cdnh=198) GLUCOSE RANDOM (BEAKER) 67 mg/dL 70-105 (test runz=039) CALCIUM (BEAKER) (test 9.1 mg/dL 8.4-10.2 mjdt=310) AST (SGOT) (BEAKER) (test 30 U/L 5-34 gdpa=410) ALT (SGPT) (BEAKER) (test 10 U/L 6-55 hcjg=961) EGFR (BEAKER) (test 48 mL/min/1.73 sq m ESTIMATED GFR IS NOT uuhl=5113) ACCURATE CREATININE CLEARANCE IN PREDICTING GLOMERULAR FILTRATION RATE. ESTIMATED GFR IS NOT APPLICABLE FOR DIALYSIS PATIENTS. Recheck and call Dr. Solorio with results [phone] slightly ictericBASIC METABOLIC [id number] 17:36:00 Test Item Value Reference Range Comments SODIUM (BEAKER) (test 119 meq/L 136-145 qpah=292) POTASSIUM (BEAKER) (test 5.0 meq/L 3.5-5.1 hhpv=405) CHLORIDE (BEAKER) (test 89 meq/L 98-107 fqwb=831) CO2 (BEAKER) (test 22 meq/L 22-29 cayh=166) BLOOD UREA NITROGEN 38 mg/dL 7-21 (BEAKER) (test gzut=871) CREATININE (BEAKER) (test 1.50 mg/dL 0.57-1.25 vlnw=393) GLUCOSE RANDOM (BEAKER) 70 mg/dL 70-105 (test odcq=005) CALCIUM (BEAKER) (test 8.9 mg/dL 8.4-10.2 ydbo=600) EGFR (BEAKER) (test 49 mL/min/1.73 sq m ESTIMATED GFR IS NOT ihdl=6012) ACCURATE CREATININE CLEARANCE IN PREDICTING GLOMERULAR FILTRATION RATE. ESTIMATED GFR IS NOT APPLICABLE FOR DIALYSIS PATIENTS. Specimen slightly ictericCT, CHEST, WITH HIGH RESOLUTION, INTERSTITAL LUNG [id number] 17:36:00Reason for exam:->follow up for lung noduleFINAL [...] MDReport Verified Date/Time: 08/25/2018 17:36:51 Reading Location: [facility] C013Y CT Body Reading Room CT, SPINE, LUMBAR, WO [id number] 17:06:00FINAL REPORT CT thoracic and lumbar spine [...] Bain Verified Date/Time: 08/25/2018 17:06:21 Reading Location: [facility] Radiology Reading Room CT, SPINE, THORACIC, WO [id number] 17:06:00FINAL REPORT CT thoracic and lumbar spine [...] Verified Date/Time: 08/25/2018 17: 06:21 Reading Location: [facility] Radiology Reading Room EOSINOPHIL SMEAR, [id number] 16:40:00 Test Item Value Reference Range Comments EOSINOPHIL SMEAR, URINE (BEAKER) (test No EOS seen No EOS seen wczi=1764) SODIUM, RANDOM [id number] 15:13:00 Test Item Value Reference Range Comments SODIUM URINE (BEAKER) (test edhz=790) < meq/L Reference Range: No NormalsCOMPREHENSIVE METABOLIC [id number] 15:12:00 Test Item Value Reference Range Comments TOTAL PROTEIN (BEAKER) 5.0 gm/dL 6.0-8.3 (test vtrr=335) ALBUMIN (BEAKER) (test 2.9 g/dL 3.5-5.0 fxoi=4382) ALKALINE PHOSPHATASE 154 U/L 40-150 (BEAKER) (test blhi=945) BILIRUBIN TOTAL (BEAKER) 3.1 mg/dL 0.2-1.2 (test dtse=763) SODIUM (BEAKER) (test 116 meq/L 136-145 wniw=824) POTASSIUM (BEAKER) (test 4.8 meq/L 3.5-5.1 fclf=044) CHLORIDE (BEAKER) (test 87 meq/L 98-107 iegm=832) CO2 (BEAKER) (test 24 meq/L 22-29 pvte=290) BLOOD UREA NITROGEN 39 mg/dL 7-21 (BEAKER) (test jfpx=940) CREATININE (BEAKER) (test 1.53 mg/dL 0.57-1.25 rvrk=242) GLUCOSE RANDOM (BEAKER) 67 mg/dL 70-105 (test rjwj=762) CALCIUM (BEAKER) (test 8.6 mg/dL 8.4-10.2 ceft=101) AST (SGOT) (BEAKER) (test 24 U/L 5-34 lrkl=563) ALT (SGPT) (BEAKER) (test 11 U/L 6-55 dnif=845) EGFR (BEAKER) (test 48 mL/min/1.73 sq m ESTIMATED GFR IS NOT vdgy=2452) ACCURATE CREATININE CLEARANCE IN PREDICTING GLOMERULAR FILTRATION RATE. ESTIMATED GFR IS NOT APPLICABLE FOR DIALYSIS PATIENTS. Specimen slightly ictericPROTEIN, RANDOM [id number] 15:12:00 Test Item Value Reference Range Comments PROTEIN, URINE (BEAKER) (test sjia=8911) < mg/dL 0-14 CREATININE, RANDOM [id number] 15:10:00 Test Item Value Reference Range Comments CREATININE URINE (BEAKER) (test noxi=380) 75.0 mg/dL Reference Range: No NormalsURINALYSIS W/ [id number] 14:55:00 Test Item Value Reference Range Comments COLOR (BEAKER) (test axqe=017) Yellow CLARITY (BEAKER) (test npcj=927) Hazy SPECIFIC GRAVITY UA (BEAKER) (test fdoc=312) 1.009 1.001-1.035 PH UA (BEAKER) (test qcus=847) 5.5 5.0-8.0 PROTEIN UA (BEAKER) (test zmmj=331) Negative Negative GLUCOSE UA (BEAKER) (test eeov=303) Negative Negative KETONES UA (BEAKER) (test lvvn=715) Negative Negative BILIRUBIN UA (BEAKER) (test zpat=087) Negative Negative BLOOD UA (BEAKER) (test zuza=102) Small Negative NITRITE UA (BEAKER) (test gqbt=388) Negative Negative LEUKOCYTE ESTERASE UA (BEAKER) (test eezs=778) Negative Negative UROBILINOGEN UA (BEAKER) (test gdba=062) 0.2 mg/dL 0.2-1.0 RBC UA (BEAKER) (test ruzk=548) 20 /HPF WBC UA (BEAKER) (test sddg=813) 27 /HPF SQUAMOUS EPITHELIAL (BEAKER) (test tpvf=166) 18 /HPF SOURCE(BEAKER) (test rrli=1748) URINALYSIS W/ REFLEX URINE [id number] 14:47:00 Test Item Value Reference Range Comments COLOR (BEAKER) (test fsbd=445) Yellow CLARITY (BEAKER) (test lnff=189) Hazy SPECIFIC GRAVITY UA (BEAKER) (test ydzg=248) 1.010 1.001-1.035 PH UA (BEAKER) (test oqns=907) 5.5 5.0-8.0 PROTEIN UA (BEAKER) (test itku=122) Negative Negative GLUCOSE UA (BEAKER) (test tlxx=895) Negative Negative KETONES UA (BEAKER) (test lrtr=282) Negative Negative BILIRUBIN UA (BEAKER) (test efri=369) Negative Negative BLOOD UA (BEAKER) (test zmby=806) Small Negative NITRITE UA (BEAKER) (test hvkl=950) Negative Negative LEUKOCYTE ESTERASE UA (BEAKER) (test hius=720) Negative Negative UROBILINOGEN UA (BEAKER) (test wara=708) 0.2 mg/dL 0.2-1.0 RBC UA (BEAKER) (test jxmp=328) 38 /HPF WBC UA (BEAKER) (test gqde=910) 7 /HPF SQUAMOUS EPITHELIAL (BEAKER) (test aund=083) 18 /HPF AMORPHOUS CRYSTALS (BEAKER) (test aiyq=9431) Rare SOURCE(BEAKER) (test nmro=3883) OSMOLALITY, [id number] 14:40:00 Test Item Value Reference Range Comments OSMOLALITY URINE (BEAKER) (test mmzi=109) 284 mOsm/kg 40-1,400 [id number] 13:34:00 Test Item Value Reference Range Comments PROCALCITONIN (BEAKER) (test ukil=1509) 0.25 ng/mL <0.05 SEPSIS RISK (ng/mL)Low: 0.05-0.50Intermediate: 0.51-2.00High: & gt;=2.01OSMOLALITY, [id number] 12:43:00 Test Item Value Reference Range Comments OSMOLALITY URINE (BEAKER) (test lpos=518) 316 mOsm/kg 40-1,400 OSMOLALITY, [id number] 12:41:00 Test Item Value Reference Range Comments OSMOLALITY, SERUM (BEAKER) (test fagy=807) 259 mOsm/kg 275-295 TSH/FREE T4 IF [id number] 11:36:00 Test Item Value Reference Range Comments THYROID STIMULATING HORMONE (BEAKER) (test 2.55 uIU/mL 0.35-4.94 xxzf=363) [id number] 11:34:00 Test Item Value Reference Range Comments CORTISOL, TOTAL (BEAKER) (test fzgq=9911) 7.9 ug/dL 3.7-19.4 SODIUM, RANDOM [id number] 11:34:00 Test Item Value Reference Range Comments SODIUM URINE (BEAKER) (test ifnc=674) < meq/L Reference Range: No NormalsBASIC METABOLIC [id number] 11:24:00 Test Item Value Reference Range Comments SODIUM (BEAKER) (test 113 meq/L 136-145 jayc=440) POTASSIUM (BEAKER) (test 5.3 meq/L 3.5-5.1 vaiu=229) CHLORIDE (BEAKER) (test 86 meq/L 98-107 ndyp=470) CO2 (BEAKER) (test 21 meq/L 22-29 wzjr=954) BLOOD UREA NITROGEN 39 mg/dL 7-21 (BEAKER) (test nyrt=187) CREATININE (BEAKER) (test 1.57 mg/dL 0.57-1.25 pvzj=804) GLUCOSE RANDOM (BEAKER) 64 mg/dL 70-105 (test pwha=815) CALCIUM (BEAKER) (test 9.1 mg/dL 8.4-10.2 mrxv=889) EGFR (BEAKER) (test 46 mL/min/1.73 sq m ESTIMATED GFR IS NOT teqj=5793) ACCURATE CREATININE CLEARANCE IN PREDICTING GLOMERULAR FILTRATION RATE. ESTIMATED GFR IS NOT APPLICABLE FOR DIALYSIS PATIENTS. Specimen slightly ictericURIC [id number] 11:21:00 Test Item Value Reference Range Comments URIC ACID (BEAKER) (test wwve=973) 8.2 mg/dL 2.6-7.2 Specimen slightly ictericCREATININE, RANDOM [id number] 11:21:00 Test Item Value Reference Range Comments CREATININE URINE (BEAKER) (test fvlm=809) 81.9 mg/dL Reference Range: No NormalsPOTASSIUM, RANDOM [id number] 11:21:00 Test Item Value Reference Range Comments POTASSIUM URINE (BEAKER) (test bpnk=139) 19.2 meq/L Reference Range: No NormalsCBC W/PLT COUNT & AUTO [id number] 10: 20:00 Test Item Value Reference Range Comments WHITE BLOOD CELL COUNT (BEAKER) (test hilx=391) 10.9 K/ L 3.5-10.5 RED BLOOD CELL COUNT (BEAKER) (test kexy=402) 2.46 M/ L 4.63-6.08 HEMOGLOBIN (BEAKER) (test domk=732) 7.9 GM/DL 13.7-17.5 HEMATOCRIT (BEAKER) (test zruu=554) 22.2 % 40.1-51.0 MEAN CORPUSCULAR VOLUME (BEAKER) (test zhta=993) 90.2 fL 79.0-92.2 MEAN CORPUSCULAR HEMOGLOBIN (BEAKER) (test 32.1 pg 25.7-32.2 bkiv=237) MEAN CORPUSCULAR HEMOGLOBIN CONC (BEAKER) (test 35.6 GM/DL 32.3-36.5 orcy=596) RED CELL DISTRIBUTION WIDTH (BEAKER) (test 14.2 % 11.6-14.4 fhmv=893) PLATELET COUNT (BEAKER) (test hzwa=840) 82 K/CU MM 150-450 MEAN PLATELET VOLUME (BEAKER) (test qbsa=713) 8.3 fL 9.4-12.4 NUCLEATED RED BLOOD CELLS (BEAKER) (test 0 /100 WBC 0-0 chha=809) (CELLAVISION MANUAL DIFF)[id number] 10:20:00 Test Item Value Reference Range Comments NEUTROPHILS - REL (CELLAVISION)(BEAKER) (test 80 % whcw=1117) LYMPHOCYTES - REL (CELLAVISION)(BEAKER) (test 2 % qzym=4716) MONOCYTES - REL (CELLAVISION)(BEAKER) (test 6 % fjsb=5923) BANDS - REL (CELLAVISION)(BEAKER) (test 12 % 0-10 uiez=0198) NEUTROPHILS - ABS (CELLAVISION)(BEAKER) (test 8.72 K/ul 1.78-5.38 rtka=9590) LYMPHOCYTES - ABS (CELLAVISION)(BEAKER) (test 0.22 K/ul 1.32-3.57 pdgb=9789) MONOCYTES - ABS (CELLAVISION)(BEAKER) (test 0.65 K/uL 0.30-0.82 qkwl=5264) BANDS - ABS (CELLAVISION)(BEAKER) (test 1.31 K/uL 0.00-0.80 xpzg=2019) TOTAL COUNTED (BEAKER) (test ziqs=9271) 100 WBC MORPHOLOGY (BEAKER) (test haog=665) Normal PLT MORPHOLOGY (BEAKER) (test arsy=334) Normal POLYCHROMATOPHILLIC RBCS(BEAKER) (test lxme=834) 2+ moderate ANISOCYTOSIS (BEAKER) (test joxt=453) 2+ moderate POIKILOCYTES (BEAKER) (test muyk=269) 2+ moderate ARTIFACT (CELLAVISION)(BEAKER) (test vodb=4934) Present PLATELET CONCENTRATION (CELLAVISION)(BEAKER) Decreased (test kfao=9518) Received comment: User comments: Slide comments:COMPREHENSIVE METABOLIC [id number] 09:30:00 Test Item Value Reference Range Comments TOTAL PROTEIN (BEAKER) 5.2 gm/dL 6.0-8.3 (test yfmc=507) ALBUMIN (BEAKER) (test 3.0 g/dL 3.5-5.0 pruz=5585) ALKALINE PHOSPHATASE 158 U/L 40-150 (BEAKER) (test nfyu=948) BILIRUBIN TOTAL (BEAKER) 2.9 mg/dL 0.2-1.2 (test fcwc=163) SODIUM (BEAKER) (test 111 meq/L 136-145 xztz=873) POTASSIUM (BEAKER) (test 5.5 meq/L 3.5-5.1 aptq=027) CHLORIDE (BEAKER) (test 87 meq/L 98-107 pqps=885) CO2 (BEAKER) (test 20 meq/L 22-29 uedc=011) BLOOD UREA NITROGEN 39 mg/dL 7-21 (BEAKER) (test bdmp=173) CREATININE (BEAKER) (test 1.55 mg/dL 0.57-1.25 rplo=827) GLUCOSE RANDOM (BEAKER) 79 mg/dL 70-105 (test lumi=697) CALCIUM (BEAKER) (test 9.0 mg/dL 8.4-10.2 ccnh=455) AST (SGOT) (BEAKER) (test 27 U/L 5-34 qhns=409) ALT (SGPT) (BEAKER) (test 9 U/L 6-55 ldlw=587) EGFR (BEAKER) (test 47 mL/min/1.73 sq m ESTIMATED GFR IS NOT tmku=4654) ACCURATE CREATININE CLEARANCE IN PREDICTING GLOMERULAR FILTRATION RATE. ESTIMATED GFR IS NOT APPLICABLE FOR DIALYSIS PATIENTS. Specimen slightly ictericLACTIC ACID, VENOUS, WHOLE [id number] 09:15:00 Test Item Value Reference Range Comments LACTATE BLOOD VENOUS (2) (BEAKER) (test 0.9 mmol/L 0.5-2.2 sudn=2956) Effective 02/28/2016: Units/Reference Range ChangeNew: 0.5-2.2 mmol/L Previous: 5 -20 mg/dLSpecimen slightly [id number] 09:01:00 Test Item Value Reference Range Comments AMMONIA (BEAKER) (test xtto=628) 83 mol/L 18-72 PT/[id number] 08:54:00 Test Item Value Reference Range Comments PROTIME (BEAKER) (test toeg=686) 21.4 seconds 11.7-14.7 INR (BEAKER) (test susg=446) 1.9 <=5.9 PARTIAL THROMBOPLASTIN TIME (BEAKER) (test 44.2 seconds 22.5-36.0 hnus=478) RECOMMENDED COUMADIN/WARFARIN INR THERAPY RANGESSTANDARD DOSE: 2.0 - 3.0 Includes: PROPHYLAXIS forvenous thrombosis, systemic embolization; TREATMENT for venous thrombosis and/or pulmonary embolus.HIGH RISK: Target INR is 2.5-3.5 for patients with mechanical heart valves.PROTHROMBIN TIME/[id number] 08:53: 00 Test Item Value Reference Range Comments PROTIME (BEAKER) (test zuex=968) 21.4 seconds 11.7-14.7 INR (BEAKER) (test rqma=491) 1.9 <=5.9 RECOMMENDED COUMADIN/WARFARIN INR THERAPY RANGESSTANDARD DOSE: 2.0 - 3.0 Includes: PROPHYLAXIS forvenous thrombosis, systemic embolization; TREATMENT for venous thrombosis and/or pulmonary embolus.HIGH RISK: Target INR is 2.5-3.5 for patients with mechanical heart valves.COMPREHENSIVE METABOLIC [id number] 13:54:00 Test Item Value Reference Range Comments TOTAL PROTEIN (BEAKER) 6.2 gm/dL 6.0-8.3 (test micy=452) ALBUMIN (BEAKER) (test 3.4 g/dL 3.5-5.0 mgxf=8463) ALKALINE PHOSPHATASE 190 U/L 40-150 (BEAKER) (test llvx=199) BILIRUBIN TOTAL (BEAKER) 1.9 mg/dL 0.2-1.2 (test lbqy=304) SODIUM (BEAKER) (test 125 meq/L 136-145 yytw=301) POTASSIUM (BEAKER) (test 5.0 meq/L 3.5-5.1 oara=654) CHLORIDE (BEAKER) (test 99 meq/L 98-107 cptw=507) CO2 (BEAKER) (test 19 meq/L 22-29 cphs=260) BLOOD UREA NITROGEN 36 mg/dL 7-21 (BEAKER) (test aibq=950) CREATININE (BEAKER) (test 1.65 mg/dL 0.57-1.25 gyhh=435) GLUCOSE RANDOM (BEAKER) 133 mg/dL 70-105 (test mbdx=535) CALCIUM (BEAKER) (test 9.5 mg/dL 8.4-10.2 aiih=065) AST (SGOT) (BEAKER) (test 23 U/L 5-34 zvuc=379) ALT (SGPT) (BEAKER) (test 12 U/L 6-55 ljej=863) EGFR (BEAKER) (test 44 mL/min/1.73 sq m ESTIMATED GFR IS NOT oneg=1831) ACCURATE CREATININE CLEARANCE IN PREDICTING GLOMERULAR FILTRATION RATE. ESTIMATED GFR IS NOT APPLICABLE FOR DIALYSIS PATIENTS. BILIRUBIN, [id number] 13:54:00 Test Item Value Reference Range Comments BILIRUBIN DIRECT (BEAKER) (test orvq=964) 1.4 mg/dL 0.1-0.5 CBC W/PLT COUNT & AUTO [id number] 13:50:00 Test Item Value Reference Range Comments WHITE BLOOD CELL COUNT (BEAKER) (test gokx=684) 6.8 K/ L 3.5-10.5 RED BLOOD CELL COUNT (BEAKER) (test qvmr=357) 3.01 M/ L 4.63-6.08 HEMOGLOBIN (BEAKER) (test rtuc=326) 9.5 GM/DL 13.7-17.5 HEMATOCRIT (BEAKER) (test mfyp=596) 28.3 % 40.1-51.0 MEAN CORPUSCULAR VOLUME (BEAKER) (test zpkv=662) 94.0 fL 79.0-92.2 MEAN CORPUSCULAR HEMOGLOBIN (BEAKER) (test 31.6 pg 25.7-32.2 hqrh=682) MEAN CORPUSCULAR HEMOGLOBIN CONC (BEAKER) (test 33.6 GM/DL 32.3-36.5 cgif=786) RED CELL DISTRIBUTION WIDTH (BEAKER) (test 14.5 % 11.6-14.4 cxrr=575) PLATELET COUNT (BEAKER) (test rzgw=253) 131 K/CU MM 150-450 MEAN PLATELET VOLUME (BEAKER) (test tnxp=043) 9.0 fL 9.4-12.4 NUCLEATED RED BLOOD CELLS (BEAKER) (test 0 /100 WBC 0-0 soeh=808) NEUTROPHILS RELATIVE PERCENT (BEAKER) (test 75 % fkxs=560) LYMPHOCYTES RELATIVE PERCENT (BEAKER) (test 7 % zybi=656) MONOCYTES RELATIVE PERCENT (BEAKER) (test 14 % mjfd=170) EOSINOPHILS RELATIVE PERCENT (BEAKER) (test 2 % dffh=132) BASOPHILS RELATIVE PERCENT (BEAKER) (test 0 % lxdf=382) NEUTROPHILS ABSOLUTE COUNT (BEAKER) (test 5.11 K/ L 1.78-5.38 nsau=992) LYMPHOCYTES ABSOLUTE COUNT (BEAKER) (test 0.50 K/ L 1.32-3.57 ogmi=390) MONOCYTES ABSOLUTE COUNT (BEAKER) (test 0.94 K/ L 0.30-0.82 uxnz=283) EOSINOPHILS ABSOLUTE COUNT (BEAKER) (test 0.12 K/ L 0.04-0.54 zdeb=400) BASOPHILS ABSOLUTE COUNT (BEAKER) (test 0.03 K/ L 0.01-0.08 cmij=415) IMMATURE GRANULOCYTES-RELATIVE PERCENT (BEAKER) 1 % 0-1 (test fiof=7395) PROTHROMBIN [id number] 13:46:00 Test Item Value Reference Range Comments PROTIME (BEAKER) (test lyvv=293) 19.5 seconds 11.7-14.7 INR (BEAKER) (test taif=749) 1.7 <=5.9 RECOMMENDED COUMADIN/WARFARIN INR THERAPY RANGESSTANDARD DOSE: 2.0 - 3.0 Includes: PROPHYLAXIS forvenous thrombosis, systemic embolization; TREATMENT for venous thrombosis and/or pulmonary embolus.HIGH RISK: Target INR is 2.5-3.5 for patients with mechanical heart valves.BONE AND/OR JOINT IMAGING, WHOLE [id number] 16:45:00FINAL REPORT PROCEDURE: BONE SCAN, WHOLE BODY CPT CODE: [id number] INDICATION: L3 vertebral body lesion follow-up R91.1 [...] Verified Date/ Time: 08/05/2018 16:45:34 Reading Location: [address] [address] NIR, VERTEBROPLASTY THORACIC, [id number] 17:23:00Reason for exam:->T11, T12, L2 compression fracturesAddendum [...] Verified Date/Time: 06/04/2018 17:23:27 Reading Location : [address] Radiology Reading RoomAddendum EndsFINAL REPORT HISTORY: [...] as (Ka,r): 1550 mGy Signed: [facility]ina Rain [facility] Verified Date/Time: 06/03/2018 17:56:43 Reading Location : [place] [address] Angio Body Reading Room ALPHA FETOPROTEIN (AFP), TUMOR [id number] 15:20:00 Test Item Value Reference Range Comments ALPHA-FETOPROTEIN (BEAKER) (test pmgf=4737) 2.2 ng/mL <10.0 COMPREHENSIVE METABOLIC [id number] 14:54:00 Test Item Value Reference Range Comments TOTAL PROTEIN (BEAKER) 6.5 gm/dL 6.0-8.3 (test inka=190) ALBUMIN (BEAKER) (test 3.6 g/dL 3.5-5.0 nbat=0192) ALKALINE PHOSPHATASE 342 U/L 40-150 (BEAKER) (test jefj=740) BILIRUBIN TOTAL (BEAKER) 4.2 mg/dL 0.2-1.2 (test zlri=385) SODIUM (BEAKER) (test 128 meq/L 136-145 eozl=536) POTASSIUM (BEAKER) (test 4.6 meq/L 3.5-5.1 qiow=509) CHLORIDE (BEAKER) (test 100 meq/L 98-107 nahi=606) CO2 (BEAKER) (test 21 meq/L 22-29 rqeg=006) BLOOD UREA NITROGEN 21 mg/dL 7-21 (BEAKER) (test mssq=420) CREATININE (BEAKER) (test 1.37 mg/dL 0.57-1.25 ulsb=962) GLUCOSE RANDOM (BEAKER) 108 mg/dL 70-105 (test yebz=040) CALCIUM (BEAKER) (test 9.5 mg/dL 8.4-10.2 oahg=852) AST (SGOT) (BEAKER) (test 25 U/L 5-34 sacx=855) ALT (SGPT) (BEAKER) (test 10 U/L 6-55 tfed=343) EGFR (BEAKER) (test 54 mL/min/1.73 sq m ESTIMATED GFR IS NOT gjtx=0856) ACCURATE CREATININE CLEARANCE IN PREDICTING GLOMERULAR FILTRATION RATE. ESTIMATED GFR IS NOT APPLICABLE FOR DIALYSIS PATIENTS. Specimen slightly ictericBILIRUBIN, [id number] 14:54:00 Test Item Value Reference Range Comments BILIRUBIN DIRECT (BEAKER) (test fnvg=698) 2.1 mg/dL 0.1-0.5 CBC W/PLT COUNT & AUTO [id number] 14:52:00 Test Item Value Reference Range Comments WHITE BLOOD CELL COUNT (BEAKER) (test ogne=894) 3.9 K/ L 3.5-10.5 RED BLOOD CELL COUNT (BEAKER) (test proz=780) 2.69 M/ L 4.63-6.08 HEMOGLOBIN (BEAKER) (test uwhu=657) 9.1 GM/DL 13.7-17.5 HEMATOCRIT (BEAKER) (test upqk=608) 27.3 % 40.1-51.0 MEAN CORPUSCULAR VOLUME (BEAKER) (test swvm=170) 101.5 fL 79.0-92.2 MEAN CORPUSCULAR HEMOGLOBIN (BEAKER) (test 33.8 pg 25.7-32.2 rxst=917) MEAN CORPUSCULAR HEMOGLOBIN CONC (BEAKER) (test 33.3 GM/DL 32.3-36.5 gnza=342) RED CELL DISTRIBUTION WIDTH (BEAKER) (test 18.6 % 11.6-14.4 sigr=750) PLATELET COUNT (BEAKER) (test iatc=011) 71 K/CU MM 150-450 MEAN PLATELET VOLUME (BEAKER) (test hgbf=729) 9.6 fL 9.4-12.4 NUCLEATED RED BLOOD CELLS (BEAKER) (test 0 /100 WBC 0-0 wowm=015) NEUTROPHILS RELATIVE PERCENT (BEAKER) (test 62 % iplj=566) LYMPHOCYTES RELATIVE PERCENT (BEAKER) (test 16 % dbot=557) MONOCYTES RELATIVE PERCENT (BEAKER) (test 17 % pslh=980) EOSINOPHILS RELATIVE PERCENT (BEAKER) (test 5 % cbjp=718) BASOPHILS RELATIVE PERCENT (BEAKER) (test 0 % krlj=498) NEUTROPHILS ABSOLUTE COUNT (BEAKER) (test 2.41 K/ L 1.78-5.38 hifs=806) LYMPHOCYTES ABSOLUTE COUNT (BEAKER) (test 0.62 K/ L 1.32-3.57 gttv=611) MONOCYTES ABSOLUTE COUNT (BEAKER) (test cadw=426) 0.65 K/ L 0.30-0.82 EOSINOPHILS ABSOLUTE COUNT (BEAKER) (test 0.20 K/ L 0.04-0.54 xgxt=726) BASOPHILS ABSOLUTE COUNT (BEAKER) (test gfel=623) 0.01 K/ L 0.01-0.08 IMMATURE GRANULOCYTES-RELATIVE PERCENT (BEAKER) 0 % 0-1 (test litf=2419) PROTHROMBIN [id number] 14:50:00 Test Item Value Reference Range Comments PROTIME (BEAKER) (test uhcu=849) 19.5 seconds 11.7-14.7 INR (BEAKER) (test nxeq=817) 1.7 <=5.9 RECOMMENDED COUMADIN/WARFARIN INR THERAPY RANGESSTANDARD DOSE: 2.0 - 3.0 Includes: PROPHYLAXIS forvenous thrombosis, systemic embolization; TREATMENT for venous thrombosis and/or pulmonary embolus.HIGH RISK: Target INR is 2.5-3.5 for patients with mechanical heart valves.BODY FLUID CULTURE + GRAM [id number] 13:19:00 Test Item Value Reference Range Comments CULTURE (BEAKER) (test zxnz=6015) No growth GRAM STAIN RESULT (BEAKER) (test No WBCs oqem=1448) GRAM STAIN RESULT (BEAKER) (test No organisms seen vrho=08900) [id number] 17:36:00 Test Item Value Reference Range Comments SODIUM (BEAKER) (test nsjd=492) 133 meq/L 136-145 POTASSIUM (BEAKER) (test vrbw=337) 3.2 meq/L 3.5-5.1 CHLORIDE (BEAKER) (test xecm=396) 102 meq/L 98-107 CO2 (BEAKER) (test shkh=118) 21 meq/L 22-29 [id number] 13:21:00 Test Item Value Reference Range Comments SODIUM (BEAKER) (test afau=476) 134 meq/L 136-145 POTASSIUM (BEAKER) (test ddil=684) 3.0 meq/L 3.5-5.1 CHLORIDE (BEAKER) (test lyzk=902) 103 meq/L 98-107 CO2 (BEAKER) (test tywr=510) 22 meq/L 22-29 CALCIUM, [id number] 04:54:00 Test Item Value Reference Range Comments CALCIUM IONIZED (BEAKER) (test zkcj=802) 1.09 mmol/L 1.12-1.27 PH, BLOOD (BEAKER) (test avwa=1579) 7.35 [id number] 04:04:00 Test Item Value Reference Range Comments PHOSPHORUS (BEAKER) (test ntuf=026) 2.4 mg/dL 2.3-4.7 [id number] 04:04:00 Test Item Value Reference Range Comments MAGNESIUM (BEAKER) (test qzjf=345) 2.0 mg/dL 1.6-2.6 HEPATIC FUNCTION [id number] 04:04:00 Test Item Value Reference Range Comments TOTAL PROTEIN (BEAKER) (test ldnz=209) 5.8 gm/dL 6.0-8.3 ALBUMIN (BEAKER) (test jkvm=2484) 4.1 g/dL 3.5-5.0 BILIRUBIN TOTAL (BEAKER) (test tndp=927) 3.9 mg/dL 0.2-1.2 BILIRUBIN DIRECT (BEAKER) (test yehm=457) 2.0 mg/dL 0.1-0.5 ALKALINE PHOSPHATASE (BEAKER) (test vpun=693) 123 U/L 40-150 AST (SGOT) (BEAKER) (test ffgd=150) 14 U/L 5-34 ALT (SGPT) (BEAKER) (test lznu=417) < U/L 6-55 Specimen slightly ictericCOMPREHENSIVE METABOLIC [id number] 04:04:00 Test Item Value Reference Range Comments TOTAL PROTEIN (BEAKER) 5.8 gm/dL 6.0-8.3 (test filk=152) ALBUMIN (BEAKER) (test 4.1 g/dL 3.5-5.0 zlil=8164) ALKALINE PHOSPHATASE 123 U/L 40-150 (BEAKER) (test pfpc=963) BILIRUBIN TOTAL (BEAKER) 3.9 mg/dL 0.2-1.2 (test aqwi=635) SODIUM (BEAKER) (test 135 meq/L 136-145 rvpi=559) POTASSIUM (BEAKER) (test 2.9 meq/L 3.5-5.1 iuol=534) CHLORIDE (BEAKER) (test 103 meq/L 98-107 kvvw=958) CO2 (BEAKER) (test 21 meq/L 22-29 vpav=595) BLOOD UREA NITROGEN 18 mg/dL 7-21 (BEAKER) (test abkl=987) CREATININE (BEAKER) (test 1.32 mg/dL 0.57-1.25 rkik=706) GLUCOSE RANDOM (BEAKER) 126 mg/dL 70-105 (test ugao=655) CALCIUM (BEAKER) (test 9.8 mg/dL 8.4-10.2 bgtb=142) AST (SGOT) (BEAKER) (test 14 U/L 5-34 mbkf=852) ALT (SGPT) (BEAKER) (test < U/L 6-55 vehy=599) EGFR (BEAKER) (test 57 mL/min/1.73 sq m ESTIMATED GFR IS NOT hsue=3240) ACCURATE CREATININE CLEARANCE IN PREDICTING GLOMERULAR FILTRATION RATE. ESTIMATED GFR IS NOT APPLICABLE FOR DIALYSIS PATIENTS. Specimen slightly ictericPROTHROMBIN [id number] 04:02:00 Test Item Value Reference Range Comments PROTIME (BEAKER) (test dlgn=651) 25.1 seconds 11.7-14.7 INR (BEAKER) (test btky=634) 2.3 <=5.9 RECOMMENDED COUMADIN/WARFARIN INR THERAPY RANGESSTANDARD DOSE: 2.0 - 3.0 Includes: PROPHYLAXIS forvenous thrombosis, systemic embolization; TREATMENT for venous thrombosis and/or pulmonary embolus.HIGH RISK: Target INR is 2.5-3.5 for patients with mechanical heart valves.CBC W/PLT COUNT & AUTO [id number] 03:55:00 Test Item Value Reference Range Comments WHITE BLOOD CELL COUNT (BEAKER) (test mglq=769) 3.6 K/ L 3.5-10.5 RED BLOOD CELL COUNT (BEAKER) (test awkj=314) 2.48 M/ L 4.63-6.08 HEMOGLOBIN (BEAKER) (test ctes=967) 7.9 GM/DL 13.7-17.5 HEMATOCRIT (BEAKER) (test dwos=272) 23.7 % 40.1-51.0 MEAN CORPUSCULAR VOLUME (BEAKER) (test wwmr=748) 95.6 fL 79.0-92.2 MEAN CORPUSCULAR HEMOGLOBIN (BEAKER) (test 31.9 pg 25.7-32.2 xfnw=125) MEAN CORPUSCULAR HEMOGLOBIN CONC (BEAKER) (test 33.3 GM/DL 32.3-36.5 kzmy=685) RED CELL DISTRIBUTION WIDTH (BEAKER) (test 18.8 % 11.6-14.4 uvhl=159) PLATELET COUNT (BEAKER) (test lnmx=117) 38 K/CU MM 150-450 MEAN PLATELET VOLUME (BEAKER) (test zsmi=232) 9.3 fL 9.4-12.4 NUCLEATED RED BLOOD CELLS (BEAKER) (test 0 /100 WBC 0-0 tbrd=730) NEUTROPHILS RELATIVE PERCENT (BEAKER) (test 57 % pepl=521) LYMPHOCYTES RELATIVE PERCENT (BEAKER) (test 15 % vqww=333) MONOCYTES RELATIVE PERCENT (BEAKER) (test 22 % ktaq=974) EOSINOPHILS RELATIVE PERCENT (BEAKER) (test 4 % ojsv=982) BASOPHILS RELATIVE PERCENT (BEAKER) (test 0 % rbxo=440) NEUTROPHILS ABSOLUTE COUNT (BEAKER) (test 2.09 K/ L 1.78-5.38 cbgq=444) LYMPHOCYTES ABSOLUTE COUNT (BEAKER) (test 0.54 K/ L 1.32-3.57 plwv=213) MONOCYTES ABSOLUTE COUNT (BEAKER) (test xycj=773) 0.81 K/ L 0.30-0.82 EOSINOPHILS ABSOLUTE COUNT (BEAKER) (test 0.15 K/ L 0.04-0.54 dvoz=901) BASOPHILS ABSOLUTE COUNT (BEAKER) (test yoha=146) 0.01 K/ L 0.01-0.08 IMMATURE GRANULOCYTES-RELATIVE PERCENT (BEAKER) 1 % 0-1 (test tuxn=2895) [id number] 18:07:00 Test Item Value Reference Range Comments SODIUM (BEAKER) (test dqoy=919) 132 meq/L 136-145 POTASSIUM (BEAKER) (test 2.9 meq/L 3.5-5.1 Specimen slightly hemolyzed rhwe=274) CHLORIDE (BEAKER) (test 101 meq/L 98-107 owfc=813) CO2 (BEAKER) (test yirt=671) 18 meq/L 22-29 LACTIC ACID, VENOUS, WHOLE [id number] 16:43:00 Test Item Value Reference Range Comments LACTATE BLOOD VENOUS (2) 1.6 mmol/L 0.5-2.2 Specimen slightly hemolyzed (BEAKER) (test yevb=4100) Effective 02/28/2016: Units/Reference Range ChangeNew: 0.5-2.2 mmol/L Previous: 5 -20 mg/dLSpecimen slightly ictericBODY FLUID CULTURE + GRAM [id number] 12: 08:00 Test Item Value Reference Range Comments CULTURE (BEAKER) (test rglc=7412) No growth GRAM STAIN RESULT (BEAKER) (test <1+ WBCs clrr=4695) GRAM STAIN RESULT (BEAKER) (test No organisms seen jnwa=54317) [id number] 08:10:00 Test Item Value Reference Range Comments PHOSPHORUS (BEAKER) (test kzok=416) 2.8 mg/dL 2.3-4.7 [id number] 08:10:00 Test Item Value Reference Range Comments MAGNESIUM (BEAKER) (test ksrf=989) 2.2 mg/dL 1.6-2.6 COMPREHENSIVE METABOLIC [id number] 08:10:00 Test Item Value Reference Range Comments TOTAL PROTEIN (BEAKER) 6.2 gm/dL 6.0-8.3 (test jujh=943) ALBUMIN (BEAKER) (test 4.4 g/dL 3.5-5.0 lvii=2111) ALKALINE PHOSPHATASE 121 U/L 40-150 (BEAKER) (test gelu=716) BILIRUBIN TOTAL (BEAKER) 4.4 mg/dL 0.2-1.2 (test xpkt=023) SODIUM (BEAKER) (test 135 meq/L 136-145 usxv=869) POTASSIUM (BEAKER) (test 2.8 meq/L 3.5-5.1 vdxy=138) CHLORIDE (BEAKER) (test 102 meq/L 98-107 qmne=102) CO2 (BEAKER) (test 21 meq/L 22-29 ecsg=794) BLOOD UREA NITROGEN 20 mg/dL 7-21 (BEAKER) (test foky=393) CREATININE (BEAKER) (test 1.34 mg/dL 0.57-1.25 tlho=408) GLUCOSE RANDOM (BEAKER) 132 mg/dL 70-105 (test oqpv=857) CALCIUM (BEAKER) (test 10.0 mg/dL 8.4-10.2 mgxz=550) AST (SGOT) (BEAKER) (test 16 U/L 5-34 hfsf=446) ALT (SGPT) (BEAKER) (test 6 U/L 6-55 llbx=427) EGFR (BEAKER) (test 56 mL/min/1.73 sq m ESTIMATED GFR IS NOT gzoj=8907) ACCURATE CREATININE CLEARANCE IN PREDICTING GLOMERULAR FILTRATION RATE. ESTIMATED GFR IS NOT APPLICABLE FOR DIALYSIS PATIENTS. Specimen slightly ictericHEPATIC FUNCTION [id number] 08:10:00 Test Item Value Reference Range Comments TOTAL PROTEIN (BEAKER) (test mipe=834) 6.2 gm/dL 6.0-8.3 ALBUMIN (BEAKER) (test ypfd=7041) 4.4 g/dL 3.5-5.0 BILIRUBIN TOTAL (BEAKER) (test gbvl=603) 4.4 mg/dL 0.2-1.2 BILIRUBIN DIRECT (BEAKER) (test yuvf=896) 1.9 mg/dL 0.1-0.5 ALKALINE PHOSPHATASE (BEAKER) (test abvq=006) 121 U/L 40-150 AST (SGOT) (BEAKER) (test orgd=317) 16 U/L 5-34 ALT (SGPT) (BEAKER) (test nlus=747) 6 U/L 6-55 Specimen slightly ictericCALCIUM, [id number] 07:20:00 Test Item Value Reference Range Comments CALCIUM IONIZED (BEAKER) (test yojn=794) 1.01 mmol/L 1.12-1.27 PH, BLOOD (BEAKER) (test sdlu=1432) 7.49 CBC W/PLT COUNT & AUTO [id number] 06:59:00 Test Item Value Reference Range Comments WHITE BLOOD CELL COUNT (BEAKER) (test zsrm=610) 4.1 K/ L 3.5-10.5 RED BLOOD CELL COUNT (BEAKER) (test yajh=661) 2.62 M/ L 4.63-6.08 HEMOGLOBIN (BEAKER) (test cruu=567) 8.2 GM/DL 13.7-17.5 HEMATOCRIT (BEAKER) (test wrqt=123) 24.9 % 40.1-51.0 MEAN CORPUSCULAR VOLUME (BEAKER) (test oddg=363) 95.0 fL 79.0-92.2 MEAN CORPUSCULAR HEMOGLOBIN (BEAKER) (test 31.3 pg 25.7-32.2 piut=669) MEAN CORPUSCULAR HEMOGLOBIN CONC (BEAKER) (test 32.9 GM/DL 32.3-36.5 tbuz=860) RED CELL DISTRIBUTION WIDTH (BEAKER) (test 18.6 % 11.6-14.4 hmpx=067) PLATELET COUNT (BEAKER) (test yekg=197) 38 K/CU MM 150-450 MEAN PLATELET VOLUME (BEAKER) (test tsxy=942) 9.3 fL 9.4-12.4 NUCLEATED RED BLOOD CELLS (BEAKER) (test 0 /100 WBC 0-0 tjfm=290) NEUTROPHILS RELATIVE PERCENT (BEAKER) (test 66 % bgam=588) LYMPHOCYTES RELATIVE PERCENT (BEAKER) (test 12 % zocc=013) MONOCYTES RELATIVE PERCENT (BEAKER) (test 18 % vcjv=450) EOSINOPHILS RELATIVE PERCENT (BEAKER) (test 3 % xkdr=311) BASOPHILS RELATIVE PERCENT (BEAKER) (test 1 % fxhz=569) NEUTROPHILS ABSOLUTE COUNT (BEAKER) (test 2.74 K/ L 1.78-5.38 lyao=167) LYMPHOCYTES ABSOLUTE COUNT (BEAKER) (test 0.49 K/ L 1.32-3.57 nneb=756) MONOCYTES ABSOLUTE COUNT (BEAKER) (test ysnw=495) 0.75 K/ L 0.30-0.82 EOSINOPHILS ABSOLUTE COUNT (BEAKER) (test 0.11 K/ L 0.04-0.54 jprt=851) BASOPHILS ABSOLUTE COUNT (BEAKER) (test wjbq=308) 0.02 K/ L 0.01-0.08 IMMATURE GRANULOCYTES-RELATIVE PERCENT (BEAKER) 1 % 0-1 (test ncwc=4772) PROTHROMBIN [id number] 06:56:00 Test Item Value Reference Range Comments PROTIME (BEAKER) (test yylh=271) 24.5 seconds 11.7-14.7 INR (BEAKER) (test gwos=671) 2.2 <=5.9 RECOMMENDED COUMADIN/WARFARIN INR THERAPY RANGESSTANDARD DOSE: 2.0 - 3.0 Includes: PROPHYLAXIS forvenous thrombosis, systemic embolization; TREATMENT for venous thrombosis and/or pulmonary embolus.HIGH RISK: Target INR is 2.5-3.5 for patients with mechanical heart valves.BODY FLUID CELL COUNT WITH [id number] 18:36:00 Test Item Value Reference Range Comments APPEARANCE FLUID (BEAKER) (test slor=949) Hazy Clear COLOR FLUID (BEAKER) (test gwyu=283) Yellow Colorless, Straw RBC FLUID (BEAKER) (test pveo=667) 2000 /cu mm <=1 ADJUSTED WBC FLUID (BEAKER) (test zyuw=9928) 96 /cu mm <=5 LINING CELLS (BEAKER) (test igqi=4750) 2 /cu mm <=1 NEUTROPHILS FLUID (BEAKER) (test woea=4279) 4 % LYMPHS FLUID (BEAKER) (test gwxa=811) 11 % MONO/MACROPHAGE FLUID (BEAKER) (test xcqt=078) 85 % EOSINOPHILS FLUID (BEAKER) (test hkzt=023) 0 % BASO FLUID (BEAKER) (test iuyy=844) 0 % CONTAINER BODY FLUID (BEAKER) (test lrrb=7824) EDTA Tube U/S, [id number] 12:49:00Limit to 4L due to AKIReason for exam:-> ascitesFINAL REPORT Indication: Ascites. Technique: Ultrasound guided paracentesis. Findings:Preliminary ultrasound confirms ascites. A safe window was identified in the midline (suprapubic). The procedure was explained to the patient and informed consent was signed. The skin was marked and prepped in standard sterile fashion. 2% lidocaine was used for local anesthesia. A 5 [place] needle catheter system was advanced into the peritoneal space. 3300 cc clear yellow fluid was taken off.Sample of the fluid was sent to the laboratory. Patient tolerated the procedure well. Impression: Ultrasound guided paracentesis. Signed: Aristeo Xiong MDReport Verified Date/ Time: 05/13/2018 12:49:12 Reading Location: [address] Ultrasound Reading Room 12: 49 PMCALCIUM, [id number] 05:29:00 Test Item Value Reference Range Comments CALCIUM IONIZED (BEAKER) (test tlup=863) 1.10 mmol/L 1.12-1.27 PH, BLOOD (BEAKER) (test wvxt=1376) 7.35 B-TYPE NATRIURETIC FACTOR (BNP)2018-05-13 04:48:00 Test Item Value Reference Range Comments B-TYPE NATRIURETIC PEPTIDE (BEAKER) (test 274 pg/mL 0-100 broc=695) [id number] 04:44:00 Test Item Value Reference Range Comments PHOSPHORUS (BEAKER) (test ncod=560) 3.0 mg/dL 2.3-4.7 [id number] 04:44:00 Test Item Value Reference Range Comments MAGNESIUM (BEAKER) (test gcnb=038) 2.0 mg/dL 1.6-2.6 COMPREHENSIVE METABOLIC [id number] 04:44:00 Test Item Value Reference Range Comments TOTAL PROTEIN (BEAKER) 6.2 gm/dL 6.0-8.3 (test yuhz=102) ALBUMIN (BEAKER) (test 4.3 g/dL 3.5-5.0 wzdp=6167) ALKALINE PHOSPHATASE 134 U/L 40-150 (BEAKER) (test tgto=281) BILIRUBIN TOTAL (BEAKER) 4.4 mg/dL 0.2-1.2 (test yury=494) SODIUM (BEAKER) (test 131 meq/L 136-145 favo=181) POTASSIUM (BEAKER) (test 3.7 meq/L 3.5-5.1 frsi=441) CHLORIDE (BEAKER) (test 96 meq/L 98-107 jjdw=173) CO2 (BEAKER) (test 26 meq/L 22-29 gibr=395) BLOOD UREA NITROGEN 20 mg/dL 7-21 (BEAKER) (test cnfn=364) CREATININE (BEAKER) (test 1.60 mg/dL 0.57-1.25 zwog=817) GLUCOSE RANDOM (BEAKER) 149 mg/dL 70-105 (test epdm=048) CALCIUM (BEAKER) (test 10.0 mg/dL 8.4-10.2 lndf=610) AST (SGOT) (BEAKER) (test 18 U/L 5-34 oucg=623) ALT (SGPT) (BEAKER) (test 7 U/L 6-55 dssn=364) EGFR (BEAKER) (test 46 mL/min/1.73 sq m ESTIMATED GFR IS NOT hqxv=6101) ACCURATE CREATININE CLEARANCE IN PREDICTING GLOMERULAR FILTRATION RATE. ESTIMATED GFR IS NOT APPLICABLE FOR DIALYSIS PATIENTS. Specimen slightly ictericHEPATIC FUNCTION [id number] 04:44:00 Test Item Value Reference Range Comments TOTAL PROTEIN (BEAKER) (test mwcz=822) 6.2 gm/dL 6.0-8.3 ALBUMIN (BEAKER) (test njjk=8805) 4.3 g/dL 3.5-5.0 BILIRUBIN TOTAL (BEAKER) (test uuqb=325) 4.4 mg/dL 0.2-1.2 BILIRUBIN DIRECT (BEAKER) (test npjk=448) 2.4 mg/dL 0.1-0.5 ALKALINE PHOSPHATASE (BEAKER) (test xjvr=294) 134 U/L 40-150 AST (SGOT) (BEAKER) (test zyzg=967) 18 U/L 5-34 ALT (SGPT) (BEAKER) (test hmdf=378) 7 U/L 6-55 Specimen slightly ictericPROTHROMBIN [id number] 04:30:00 Test Item Value Reference Range Comments PROTIME (BEAKER) (test fxpy=143) 23.8 seconds 11.7-14.7 INR (BEAKER) (test ilqf=580) 2.1 <=5.9 RECOMMENDED COUMADIN/WARFARIN INR THERAPY RANGESSTANDARD DOSE: 2.0 - 3.0 Includes: PROPHYLAXIS forvenous thrombosis, systemic embolization; TREATMENT for venous thrombosis and/or pulmonary embolus.HIGH RISK: Target INR is 2.5-3.5 for patients with mechanical heart valves.CBC W/PLT COUNT & AUTO [id number] 04:19:00 Test Item Value Reference Range Comments WHITE BLOOD CELL COUNT (BEAKER) (test dabx=742) 4.0 K/ L 3.5-10.5 RED BLOOD CELL COUNT (BEAKER) (test wbkl=536) 2.60 M/ L 4.63-6.08 HEMOGLOBIN (BEAKER) (test hxth=242) 8.2 GM/DL 13.7-17.5 HEMATOCRIT (BEAKER) (test phty=435) 24.6 % 40.1-51.0 MEAN CORPUSCULAR VOLUME (BEAKER) (test dmnt=761) 94.6 fL 79.0-92.2 MEAN CORPUSCULAR HEMOGLOBIN (BEAKER) (test 31.5 pg 25.7-32.2 xwbc=322) MEAN CORPUSCULAR HEMOGLOBIN CONC (BEAKER) (test 33.3 GM/DL 32.3-36.5 hyki=839) RED CELL DISTRIBUTION WIDTH (BEAKER) (test 18.1 % 11.6-14.4 nfej=083) PLATELET COUNT (BEAKER) (test wvkq=556) 46 K/CU MM 150-450 MEAN PLATELET VOLUME (BEAKER) (test mrvc=869) 9.1 fL 9.4-12.4 NUCLEATED RED BLOOD CELLS (BEAKER) (test 0 /100 WBC 0-0 ogtj=341) NEUTROPHILS RELATIVE PERCENT (BEAKER) (test 62 % upcy=108) LYMPHOCYTES RELATIVE PERCENT (BEAKER) (test 13 % xhph=148) MONOCYTES RELATIVE PERCENT (BEAKER) (test 21 % oquz=355) EOSINOPHILS RELATIVE PERCENT (BEAKER) (test 3 % luck=354) BASOPHILS RELATIVE PERCENT (BEAKER) (test 0 % sdon=336) NEUTROPHILS ABSOLUTE COUNT (BEAKER) (test 2.49 K/ L 1.78-5.38 druz=548) LYMPHOCYTES ABSOLUTE COUNT (BEAKER) (test 0.53 K/ L 1.32-3.57 fssl=703) MONOCYTES ABSOLUTE COUNT (BEAKER) (test uaaw=434) 0.86 K/ L 0.30-0.82 EOSINOPHILS ABSOLUTE COUNT (BEAKER) (test 0.10 K/ L 0.04-0.54 mrvr=781) BASOPHILS ABSOLUTE COUNT (BEAKER) (test gwxf=450) 0.01 K/ L 0.01-0.08 IMMATURE GRANULOCYTES-RELATIVE PERCENT (BEAKER) 1 % 0-1 (test mhyx=8081) TISSUE [id number] 14:55:00Surgical Pathology Report Case: [id number] Authorizing Provider: Karina Rain MD Collected: 05/08/20181999 Ordering Location: [address] Received: 05/11/2018 0837 Service Pathologist: Jesús Craig MD Specimen: Bone L3 VERTEBRAL BODYBONE BIOPSY:BONE AND BONE MARROW, NEGATIVE FOR MALIGNANCY.SEE DIAGNOSTIC COMMENT. Signing Pathologist Direct Phone Line: [phone] signed by Jesús Craig MD on 05/12/2018 [...] as thesampled material may not be fully entry level marketing representative. This case was discussed with Dr. Andrea Mason, donor relations manager.[id number], [id number], [id number], [id number] fracture of body thoracic vertebralL3 vertebral body [...] developed and its performance characteristics determined by [facility], Pathology Laboratory. It has not been cleared [...] clinical laboratory testing.RAD, CHEST, 1 VIEW, NON [id number] 13:56:00Reason for exam:->edemaShould this be performed at the bedside?->YesFINAL REPORT Chest one view compared to December 30 Discussion: Ill-defined bilateral airspace opacities are worse since the previous study although this may reflect a lesser inspiratory effort. No gross effusion or pneumothorax. Signed: Karina Pugheport Verified Date/Time : 05/12/2018 13:56:44 Reading Location: [facility] C013 Consult Reading Room CALCIUM, [id number] 06:58:00 Test Item Value Reference Range Comments CALCIUM IONIZED (BEAKER) (test etaj=218) 1.11 mmol/L 1.12-1.27 PH, BLOOD (BEAKER) (test wxyj=9370) 7.36 [id number] 06:31:00 Test Item Value Reference Range Comments PHOSPHORUS (BEAKER) (test bubz=071) 2.9 mg/dL 2.3-4.7 [id number] 06:31:00 Test Item Value Reference Range Comments MAGNESIUM (BEAKER) (test zdfy=211) 1.9 mg/dL 1.6-2.6 COMPREHENSIVE METABOLIC [id number] 06:31:00 Test Item Value Reference Range Comments TOTAL PROTEIN (BEAKER) 5.8 gm/dL 6.0-8.3 (test qbmd=218) ALBUMIN (BEAKER) (test 4.0 g/dL 3.5-5.0 sbkt=1937) ALKALINE PHOSPHATASE 124 U/L 40-150 (BEAKER) (test clfi=995) BILIRUBIN TOTAL (BEAKER) 4.3 mg/dL 0.2-1.2 (test mnna=338) SODIUM (BEAKER) (test 128 meq/L 136-145 zkqy=498) POTASSIUM (BEAKER) (test 3.9 meq/L 3.5-5.1 jxfa=196) CHLORIDE (BEAKER) (test 92 meq/L 98-107 zgbs=983) CO2 (BEAKER) (test 26 meq/L 22-29 vrab=117) BLOOD UREA NITROGEN 21 mg/dL 7-21 (BEAKER) (test slum=432) CREATININE (BEAKER) (test 1.54 mg/dL 0.57-1.25 uhdx=100) GLUCOSE RANDOM (BEAKER) 113 mg/dL 70-105 (test heaz=263) CALCIUM (BEAKER) (test 9.5 mg/dL 8.4-10.2 fgyj=366) AST (SGOT) (BEAKER) (test 16 U/L 5-34 chur=379) ALT (SGPT) (BEAKER) (test 6 U/L 6-55 brrf=276) EGFR (BEAKER) (test 48 mL/min/1.73 sq m ESTIMATED GFR IS NOT stbm=2096) ACCURATE CREATININE CLEARANCE IN PREDICTING GLOMERULAR FILTRATION RATE. ESTIMATED GFR IS NOT APPLICABLE FOR DIALYSIS PATIENTS. Specimen slightly ictericHEPATIC FUNCTION [id number] 06:31:00 Test Item Value Reference Range Comments TOTAL PROTEIN (BEAKER) (test yegs=447) 5.8 gm/dL 6.0-8.3 ALBUMIN (BEAKER) (test mvyi=0606) 4.0 g/dL 3.5-5.0 BILIRUBIN TOTAL (BEAKER) (test zdmz=099) 4.3 mg/dL 0.2-1.2 BILIRUBIN DIRECT (BEAKER) (test rgkv=963) 2.3 mg/dL 0.1-0.5 ALKALINE PHOSPHATASE (BEAKER) (test ctrh=945) 124 U/L 40-150 AST (SGOT) (BEAKER) (test mxdb=466) 16 U/L 5-34 ALT (SGPT) (BEAKER) (test girc=346) 6 U/L 6-55 Specimen slightly ictericPROTHROMBIN [id number] 06:16:00 Test Item Value Reference Range Comments PROTIME (BEAKER) (test kjtc=309) 22.3 seconds 11.7-14.7 INR (BEAKER) (test cwjj=842) 2.0 <=5.9 RECOMMENDED COUMADIN/WARFARIN INR THERAPY RANGESSTANDARD DOSE: 2.0 - 3.0 Includes: PROPHYLAXIS forvenous thrombosis, systemic embolization; TREATMENT for venous thrombosis and/or pulmonary embolus.HIGH RISK: Target INR is 2.5-3.5 for patients with mechanical heart valves.CBC W/PLT COUNT & AUTO [id number] 06:00:00 Test Item Value Reference Range Comments WHITE BLOOD CELL COUNT (BEAKER) (test nzyc=969) 4.3 K/ L 3.5-10.5 RED BLOOD CELL COUNT (BEAKER) (test nggn=205) 2.68 M/ L 4.63-6.08 HEMOGLOBIN (BEAKER) (test fvsu=627) 8.3 GM/DL 13.7-17.5 HEMATOCRIT (BEAKER) (test jpgs=960) 25.0 % 40.1-51.0 MEAN CORPUSCULAR VOLUME (BEAKER) (test jlgs=860) 93.3 fL 79.0-92.2 MEAN CORPUSCULAR HEMOGLOBIN (BEAKER) (test 31.0 pg 25.7-32.2 rmal=111) MEAN CORPUSCULAR HEMOGLOBIN CONC (BEAKER) (test 33.2 GM/DL 32.3-36.5 xcgw=605) RED CELL DISTRIBUTION WIDTH (BEAKER) (test 17.4 % 11.6-14.4 vnxq=991) PLATELET COUNT (BEAKER) (test haph=660) 57 K/CU MM 150-450 MEAN PLATELET VOLUME (BEAKER) (test oiob=594) 9.3 fL 9.4-12.4 NUCLEATED RED BLOOD CELLS (BEAKER) (test 0 /100 WBC 0-0 vmxg=587) NEUTROPHILS RELATIVE PERCENT (BEAKER) (test 61 % wycj=400) LYMPHOCYTES RELATIVE PERCENT (BEAKER) (test 14 % wdxg=323) MONOCYTES RELATIVE PERCENT (BEAKER) (test 17 % eswd=481) EOSINOPHILS RELATIVE PERCENT (BEAKER) (test 7 % gqiz=346) BASOPHILS RELATIVE PERCENT (BEAKER) (test 1 % qkxy=830) NEUTROPHILS ABSOLUTE COUNT (BEAKER) (test 2.62 K/ L 1.78-5.38 uhvo=223) LYMPHOCYTES ABSOLUTE COUNT (BEAKER) (test 0.59 K/ L 1.32-3.57 kojn=445) MONOCYTES ABSOLUTE COUNT (BEAKER) (test ciap=947) 0.73 K/ L 0.30-0.82 EOSINOPHILS ABSOLUTE COUNT (BEAKER) (test 0.29 K/ L 0.04-0.54 rjgj=859) BASOPHILS ABSOLUTE COUNT (BEAKER) (test raqm=516) 0.02 K/ L 0.01-0.08 IMMATURE GRANULOCYTES-RELATIVE PERCENT (BEAKER) 1 % 0-1 (test bhfv=4000) BLOOD [id number] 00:00:00 Test Item Value Reference Range Comments CULTURE (BEAKER) (test sjsh=5275) No growth in 5 days BLOOD [id number] 00:00:00 Test Item Value Reference Range Comments CULTURE (BEAKER) (test nncu=6332) No growth in 5 days OSMOLALITY, [id number] 18:16:00 Test Item Value Reference Range Comments OSMOLALITY URINE (BEAKER) (test uaob=196) 312 mOsm/kg 40-1400 BODY FLUID CELL COUNT WITH [id number] 17:17:00 Test Item Value Reference Range Comments APPEARANCE FLUID (BEAKER) (test lvtu=823) Clear Clear COLOR FLUID (BEAKER) (test bhiq=121) Yellow Colorless, Straw RBC FLUID (BEAKER) (test viqx=553) 150 /cu mm <=1 ADJUSTED WBC FLUID (BEAKER) (test luma=3096) 72 /cu mm <=5 LINING CELLS (BEAKER) (test uccg=1334) 2 /cu mm <=1 NEUTROPHILS FLUID (BEAKER) (test cgji=1636) 3 % LYMPHS FLUID (BEAKER) (test wtvw=250) 28 % MONO/MACROPHAGE FLUID (BEAKER) (test phup=734) 68 % EOSINOPHILS FLUID (BEAKER) (test xncn=062) 1 % BASO FLUID (BEAKER) (test fzoo=982) 0 % CONTAINER BODY FLUID (BEAKER) (test mshe=9664) EDTA Tube SODIUM, RANDOM [id number] 17:09:00 Test Item Value Reference Range Comments SODIUM URINE (BEAKER) (test txzx=140) < meq/L Reference Range: No NormalsURINALYSIS W/ [id number] 17:08:00 Test Item Value Reference Range Comments COLOR (BEAKER) (test vqvl=749) Yellow CLARITY (BEAKER) (test yazs=251) Clear SPECIFIC GRAVITY UA (BEAKER) (test vnop=689) 1.012 1.001-1.035 PH UA (BEAKER) (test okip=682) 5.5 5.0-8.0 PROTEIN UA (BEAKER) (test yuot=429) Negative Negative GLUCOSE UA (BEAKER) (test qtcm=229) Negative Negative KETONES UA (BEAKER) (test hdgx=356) Negative Negative BILIRUBIN UA (BEAKER) (test qhnw=298) Negative Negative BLOOD UA (BEAKER) (test lnxl=566) Negative Negative NITRITE UA (BEAKER) (test usyz=273) Negative Negative LEUKOCYTE ESTERASE UA (BEAKER) (test ezuq=771) Negative Negative UROBILINOGEN UA (BEAKER) (test kcob=864) 2.0 mg/dL 0.2-1.0 RBC UA (BEAKER) (test uofw=271) 0 /HPF WBC UA (BEAKER) (test yxca=203) 1 /HPF MUCUS (BEAKER) (test ugos=1070) Rare HYALINE CASTS (BEAKER) (test mdrn=908) 15 /LPF SOURCE(BEAKER) (test fqeh=6160) CREATININE, RANDOM [id number] 17:05:00 Test Item Value Reference Range Comments CREATININE URINE (BEAKER) (test rnew=391) 116.1 mg/dL Reference Range: No NormalsPROTEIN, RANDOM [id number] 17:05:00 Test Item Value Reference Range Comments PROTEIN, URINE (BEAKER) (test hlse=2918) 7 mg/dL 0-14 RAD, SPINE, THORACIC, 2 [id number] 13:53:00Reason for exam:->back pain, s/p kyphoplastyFINAL REPORT [...] Xiong MDReport Verified Date/Time: 13:53:06 Reading Location: [facility] Mammo Reading Room RAD, SPINE, LUMBAR, 2 OR 3 [id number] 13:53:00Reason for exam:->back pain, s/p kyphoplastyFINAL REPORT [...] Xiong MDReport Verified Date/Time: 13:53:06 Reading Location: [facility] Reading Room U/S, [id number] 12:52:00Limit to 4L due to AKIReason for exam:-> ascitesShould this be performed at the bedside?->NoFINAL REPORT Ultrasound guided paracentesis, 05/11/2018. Clinical History: Ascites. Sedation: None. Loom Starter: Elle. Home Care Assistant: None. Estimated Blood Loss: < 1 cc. [...] was achieved with 1% lidocaine, a 5 [place] one-step catheter was advanced into the peritoneal cavity under ultrasound guidance. After completion of drainage, the catheter was removed. There was no evidence of complication. Patient Disposition: The patient was discharged from the ultrasound department after the paracentesis, in good condition. Impression: Successful ultrasound guided paracentesis. Signed: Perlita AlmeidaReport Verified Date/Time: 05/11/2018 12:52:57 Reading Location: [facility] B1 [id number] Ultrasound Reading Room MISCELLANEOUS LAB [id number] 10:45:00 Test Item Value Reference Range Comments SCAN RESULT (test [id number]) [id number] 07:31:00 Test Item Value Reference Range Comments PHOSPHORUS (BEAKER) (test uswe=412) 2.7 mg/dL 2.3-4.7 [id number] 07:31:00 Test Item Value Reference Range Comments MAGNESIUM (BEAKER) (test rbkc=857) 1.8 mg/dL 1.6-2.6 COMPREHENSIVE METABOLIC [id number] 07:31:00 Test Item Value Reference Range Comments TOTAL PROTEIN (BEAKER) 5.5 gm/dL 6.0-8.3 (test anpi=809) ALBUMIN (BEAKER) (test 3.5 g/dL 3.5-5.0 ogac=6861) ALKALINE PHOSPHATASE 118 U/L 40-150 (BEAKER) (test lkwu=954) BILIRUBIN TOTAL (BEAKER) 5.1 mg/dL 0.2-1.2 (test dutp=401) SODIUM (BEAKER) (test 123 meq/L 136-145 lgwx=122) POTASSIUM (BEAKER) (test 4.1 meq/L 3.5-5.1 rjkw=574) CHLORIDE (BEAKER) (test 91 meq/L 98-107 nwuh=968) CO2 (BEAKER) (test 25 meq/L 22-29 xokk=910) BLOOD UREA NITROGEN 21 mg/dL 7-21 (BEAKER) (test asuz=742) CREATININE (BEAKER) (test 1.59 mg/dL 0.57-1.25 fgnb=291) GLUCOSE RANDOM (BEAKER) 121 mg/dL 70-105 (test nvsb=043) CALCIUM (BEAKER) (test 9.4 mg/dL 8.4-10.2 qbxs=331) AST (SGOT) (BEAKER) (test 17 U/L 5-34 wcyp=283) ALT (SGPT) (BEAKER) (test 8 U/L 6-55 aeix=576) EGFR (BEAKER) (test 46 mL/min/1.73 sq m ESTIMATED GFR IS NOT qgth=6975) ACCURATE CREATININE CLEARANCE IN PREDICTING GLOMERULAR FILTRATION RATE. ESTIMATED GFR IS NOT APPLICABLE FOR DIALYSIS PATIENTS. Specimen moderately ictericHEPATIC FUNCTION [id number] 07:31:00 Test Item Value Reference Range Comments TOTAL PROTEIN (BEAKER) (test oknj=729) 5.5 gm/dL 6.0-8.3 ALBUMIN (BEAKER) (test xoqh=3497) 3.5 g/dL 3.5-5.0 BILIRUBIN TOTAL (BEAKER) (test rlbn=554) 5.1 mg/dL 0.2-1.2 BILIRUBIN DIRECT (BEAKER) (test gvpr=995) 2.3 mg/dL 0.1-0.5 ALKALINE PHOSPHATASE (BEAKER) (test dbje=000) 118 U/L 40-150 AST (SGOT) (BEAKER) (test nrwk=041) 17 U/L 5-34 ALT (SGPT) (BEAKER) (test mbzc=118) 8 U/L 6-55 Specimen moderately ictericPROTHROMBIN [id number] 07:17:00 Test Item Value Reference Range Comments PROTIME (BEAKER) (test lpmq=778) 23.8 seconds 11.7-14.7 INR (BEAKER) (test mjez=910) 2.1 <=5.9 RECOMMENDED COUMADIN/WARFARIN INR THERAPY RANGESSTANDARD DOSE: 2.0 - 3.0 Includes: PROPHYLAXIS forvenous thrombosis, systemic embolization; TREATMENT for venous thrombosis and/or pulmonary embolus.HIGH RISK: Target INR is 2.5-3.5 for patients with mechanical heart valves.CBC W/PLT COUNT & AUTO [id number] 07:15:00 Test Item Value Reference Range Comments WHITE BLOOD CELL COUNT (BEAKER) (test xbye=667) 4.4 K/ L 3.5-10.5 RED BLOOD CELL COUNT (BEAKER) (test kjuu=308) 2.52 M/ L 4.63-6.08 HEMOGLOBIN (BEAKER) (test wuko=432) 7.9 GM/DL 13.7-17.5 HEMATOCRIT (BEAKER) (test gkis=113) 23.7 % 40.1-51.0 MEAN CORPUSCULAR VOLUME (BEAKER) (test hbhp=361) 94.0 fL 79.0-92.2 MEAN CORPUSCULAR HEMOGLOBIN (BEAKER) (test 31.3 pg 25.7-32.2 luzy=947) MEAN CORPUSCULAR HEMOGLOBIN CONC (BEAKER) (test 33.3 GM/DL 32.3-36.5 ldrd=358) RED CELL DISTRIBUTION WIDTH (BEAKER) (test 17.6 % 11.6-14.4 jmgx=209) PLATELET COUNT (BEAKER) (test vqld=545) 52 K/CU MM 150-450 MEAN PLATELET VOLUME (BEAKER) (test bxiu=632) 9.2 fL 9.4-12.4 NUCLEATED RED BLOOD CELLS (BEAKER) (test 0 /100 WBC 0-0 phpz=561) NEUTROPHILS RELATIVE PERCENT (BEAKER) (test 62 % aegx=507) LYMPHOCYTES RELATIVE PERCENT (BEAKER) (test 10 % yqyf=083) MONOCYTES RELATIVE PERCENT (BEAKER) (test 19 % iaxe=324) EOSINOPHILS RELATIVE PERCENT (BEAKER) (test 8 % dlpd=896) BASOPHILS RELATIVE PERCENT (BEAKER) (test 0 % ptqa=379) NEUTROPHILS ABSOLUTE COUNT (BEAKER) (test 2.72 K/ L 1.78-5.38 osdo=809) LYMPHOCYTES ABSOLUTE COUNT (BEAKER) (test 0.42 K/ L 1.32-3.57 kdqw=737) MONOCYTES ABSOLUTE COUNT (BEAKER) (test fzxm=648) 0.84 K/ L 0.30-0.82 EOSINOPHILS ABSOLUTE COUNT (BEAKER) (test 0.34 K/ L 0.04-0.54 rwer=455) BASOPHILS ABSOLUTE COUNT (BEAKER) (test ryea=672) 0.00 K/ L 0.01-0.08 IMMATURE GRANULOCYTES-RELATIVE PERCENT (BEAKER) 1 % 0-1 (test fyng=8645) CALCIUM, [id number] 07:09:00 Test Item Value Reference Range Comments CALCIUM IONIZED (BEAKER) (test frfd=871) 1.09 mmol/L 1.12-1.27 PH, BLOOD (BEAKER) (test jiqc=6015) 7.36 BASIC METABOLIC [id number] 17:49:00 Test Item Value Reference Range Comments SODIUM (BEAKER) (test 124 meq/L 136-145 ykxd=559) POTASSIUM (BEAKER) (test 3.8 meq/L 3.5-5.1 lhwj=138) CHLORIDE (BEAKER) (test 91 meq/L 98-107 xkzl=015) CO2 (BEAKER) (test 22 meq/L 22-29 rtaj=859) BLOOD UREA NITROGEN 19 mg/dL 7-21 (BEAKER) (test rqib=493) CREATININE (BEAKER) (test 1.49 mg/dL 0.57-1.25 qlgc=353) GLUCOSE RANDOM (BEAKER) 105 mg/dL 70-105 (test ofmp=419) CALCIUM (BEAKER) (test 9.3 mg/dL 8.4-10.2 fbpg=509) EGFR (BEAKER) (test 50 mL/min/1.73 sq m ESTIMATED GFR IS NOT vsxk=3817) ACCURATE CREATININE CLEARANCE IN PREDICTING GLOMERULAR FILTRATION RATE. ESTIMATED GFR IS NOT APPLICABLE FOR DIALYSIS PATIENTS. Call [id number] slightly ictericCALCIUM, [id number] 06:59:00 Test Item Value Reference Range Comments CALCIUM IONIZED (BEAKER) (test qvrm=322) 1.00 mmol/L 1.12-1.27 PH, BLOOD (BEAKER) (test tefb=5437) 7.47 [id number] 05:42:00 Test Item Value Reference Range Comments PHOSPHORUS (BEAKER) (test yijg=851) 2.7 mg/dL 2.3-4.7 [id number] 05:42:00 Test Item Value Reference Range Comments MAGNESIUM (BEAKER) (test shay=460) 1.7 mg/dL 1.6-2.6 HEPATIC FUNCTION [id number] 05:42:00 Test Item Value Reference Range Comments TOTAL PROTEIN (BEAKER) (test yves=678) 5.2 gm/dL 6.0-8.3 ALBUMIN (BEAKER) (test jndr=0221) 3.5 g/dL 3.5-5.0 BILIRUBIN TOTAL (BEAKER) (test hwye=326) 3.4 mg/dL 0.2-1.2 BILIRUBIN DIRECT (BEAKER) (test rtna=580) 1.8 mg/dL 0.1-0.5 ALKALINE PHOSPHATASE (BEAKER) (test jjej=360) 106 U/L 40-150 AST (SGOT) (BEAKER) (test zcna=852) 15 U/L 5-34 ALT (SGPT) (BEAKER) (test lyyj=435) 7 U/L 6-55 Specimen slightly ictericPROTHROMBIN [id number] 05:22:00 Test Item Value Reference Range Comments PROTIME (BEAKER) (test jjfq=695) 22.6 seconds 11.7-14.7 INR (BEAKER) (test tzza=328) 2.0 <=5.9 RECOMMENDED COUMADIN/WARFARIN INR THERAPY RANGESSTANDARD DOSE: 2.0 - 3.0 Includes: PROPHYLAXIS forvenous thrombosis, systemic embolization; TREATMENT for venous thrombosis and/or pulmonary embolus.HIGH RISK: Target INR is 2.5-3.5 for patients with mechanical heart valves.CBC W/PLT COUNT & AUTO [id number] 05:10:00 Test Item Value Reference Range Comments WHITE BLOOD CELL COUNT (BEAKER) (test upow=541) 5.6 K/ L 3.5-10.5 RED BLOOD CELL COUNT (BEAKER) (test mypr=045) 2.09 M/ L 4.63-6.08 HEMOGLOBIN (BEAKER) (test zomp=504) 6.5 GM/DL 13.7-17.5 HEMATOCRIT (BEAKER) (test drrb=593) 19.8 % 40.1-51.0 MEAN CORPUSCULAR VOLUME (BEAKER) (test gxqo=151) 94.7 fL 79.0-92.2 MEAN CORPUSCULAR HEMOGLOBIN (BEAKER) (test 31.1 pg 25.7-32.2 qnae=480) MEAN CORPUSCULAR HEMOGLOBIN CONC (BEAKER) (test 32.8 GM/DL 32.3-36.5 oixj=989) RED CELL DISTRIBUTION WIDTH (BEAKER) (test 17.3 % 11.6-14.4 nmsn=593) PLATELET COUNT (BEAKER) (test dsvy=749) 57 K/CU MM 150-450 MEAN PLATELET VOLUME (BEAKER) (test utoz=264) 8.9 fL 9.4-12.4 NUCLEATED RED BLOOD CELLS (BEAKER) (test 0 /100 WBC 0-0 xoni=345) NEUTROPHILS RELATIVE PERCENT (BEAKER) (test 71 % ellh=058) LYMPHOCYTES RELATIVE PERCENT (BEAKER) (test 9 % nprx=747) MONOCYTES RELATIVE PERCENT (BEAKER) (test 16 % atjo=164) EOSINOPHILS RELATIVE PERCENT (BEAKER) (test 3 % dras=682) BASOPHILS RELATIVE PERCENT (BEAKER) (test 0 % novq=235) NEUTROPHILS ABSOLUTE COUNT (BEAKER) (test 3.93 K/ L 1.78-5.38 zajy=609) LYMPHOCYTES ABSOLUTE COUNT (BEAKER) (test 0.52 K/ L 1.32-3.57 qjbx=305) MONOCYTES ABSOLUTE COUNT (BEAKER) (test qbcz=477) 0.87 K/ L 0.30-0.82 EOSINOPHILS ABSOLUTE COUNT (BEAKER) (test 0.19 K/ L 0.04-0.54 jxve=879) BASOPHILS ABSOLUTE COUNT (BEAKER) (test gwqa=081) 0.01 K/ L 0.01-0.08 IMMATURE GRANULOCYTES-RELATIVE PERCENT (BEAKER) 1 % 0-1 (test thlg=1245) HEPATIC FUNCTION [id number] 11:05:00 Test Item Value Reference Range Comments TOTAL PROTEIN (BEAKER) (test qmbz=810) 5.7 gm/dL 6.0-8.3 ALBUMIN (BEAKER) (test qhkb=3323) 3.9 g/dL 3.5-5.0 BILIRUBIN TOTAL (BEAKER) (test blda=630) 4.9 mg/dL 0.2-1.2 BILIRUBIN DIRECT (BEAKER) (test ncye=683) 2.0 mg/dL 0.1-0.5 ALKALINE PHOSPHATASE (BEAKER) (test pkyp=046) 98 U/L 40-150 AST (SGOT) (BEAKER) (test roxo=886) 19 U/L 5-34 ALT (SGPT) (BEAKER) (test ekzd=599) 8 U/L 6-55 Specimen moderately ictericBASIC METABOLIC [id number] 10:06:00 Test Item Value Reference Range Comments SODIUM (BEAKER) (test 132 meq/L 136-145 qvle=169) POTASSIUM (BEAKER) (test 5.0 meq/L 3.5-5.1 urxc=067) CHLORIDE (BEAKER) (test 97 meq/L 98-107 dpxw=640) CO2 (BEAKER) (test 25 meq/L 22-29 buqv=123) BLOOD UREA NITROGEN 17 mg/dL 7-21 (BEAKER) (test kzrn=712) CREATININE (BEAKER) (test 1.33 mg/dL 0.57-1.25 wbbk=395) GLUCOSE RANDOM (BEAKER) 181 mg/dL 70-105 (test aydj=302) CALCIUM (BEAKER) (test 9.4 mg/dL 8.4-10.2 cjnj=269) EGFR (BEAKER) (test 56 mL/min/1.73 sq m ESTIMATED GFR IS NOT nrlk=8729) ACCURATE CREATININE CLEARANCE IN PREDICTING GLOMERULAR FILTRATION RATE. ESTIMATED GFR IS NOT APPLICABLE FOR DIALYSIS PATIENTS. Specimen [facility] & AUTO [id number] 07: 45:00 Test Item Value Reference Range Comments WHITE BLOOD CELL COUNT (BEAKER) (test uusb=831) 3.4 K/ L 3.5-10.5 RED BLOOD CELL COUNT (BEAKER) (test dyvi=650) 2.26 M/ L 4.63-6.08 HEMOGLOBIN (BEAKER) (test koau=516) 7.0 GM/DL 13.7-17.5 HEMATOCRIT (BEAKER) (test xlbp=455) 21.6 % 40.1-51.0 MEAN CORPUSCULAR VOLUME (BEAKER) (test hbuv=186) 95.6 fL 79.0-92.2 MEAN CORPUSCULAR HEMOGLOBIN (BEAKER) (test 31.0 pg 25.7-32.2 pequ=868) MEAN CORPUSCULAR HEMOGLOBIN CONC (BEAKER) (test 32.4 GM/DL 32.3-36.5 capz=090) RED CELL DISTRIBUTION WIDTH (BEAKER) (test 17.3 % 11.6-14.4 coqp=806) PLATELET COUNT (BEAKER) (test qpxm=365) 66 K/CU MM 150-450 MEAN PLATELET VOLUME (BEAKER) (test okml=912) 9.8 fL 9.4-12.4 NUCLEATED RED BLOOD CELLS (BEAKER) (test 0 /100 WBC 0-0 ebbe=466) NEUTROPHILS RELATIVE PERCENT (BEAKER) (test 87 % ures=711) LYMPHOCYTES RELATIVE PERCENT (BEAKER) (test 7 % tuac=613) MONOCYTES RELATIVE PERCENT (BEAKER) (test 5 % afdl=921) EOSINOPHILS RELATIVE PERCENT (BEAKER) (test 0 % cjzn=122) BASOPHILS RELATIVE PERCENT (BEAKER) (test 0 % lpqt=110) NEUTROPHILS ABSOLUTE COUNT (BEAKER) (test 2.94 K/ L 1.78-5.38 lypz=945) LYMPHOCYTES ABSOLUTE COUNT (BEAKER) (test 0.23 K/ L 1.32-3.57 oiie=022) MONOCYTES ABSOLUTE COUNT (BEAKER) (test enub=383) 0.17 K/ L 0.30-0.82 EOSINOPHILS ABSOLUTE COUNT (BEAKER) (test 0.00 K/ L 0.04-0.54 wxhj=897) BASOPHILS ABSOLUTE COUNT (BEAKER) (test inqu=806) 0.00 K/ L 0.01-0.08 IMMATURE GRANULOCYTES-RELATIVE PERCENT (BEAKER) 1 % 0-1 (test xxbz=3262) PROTHROMBIN [id number] 06:06:00 Test Item Value Reference Range Comments PROTIME (BEAKER) (test dzzd=443) 19.1 seconds 11.7-14.7 INR (BEAKER) (test jibx=891) 1.6 <=5.9 RECOMMENDED COUMADIN/WARFARIN INR THERAPY RANGESSTANDARD DOSE: 2.0 - 3.0 Includes: PROPHYLAXIS forvenous thrombosis, systemic embolization; TREATMENT for venous thrombosis and/or pulmonary embolus.HIGH RISK: Target INR is 2.5-3.5 for patients with mechanical heart valves.[id number] 15:35:00 Test Item Value Reference Range Comments PROTIME (BEAKER) (test defl=953) 20.3 seconds 11.7-14.7 INR (BEAKER) (test kypz=664) 1.7 <=5.9 PARTIAL THROMBOPLASTIN TIME (BEAKER) (test 46.2 seconds 22.5-36.0 rnzb=677) RECOMMENDED COUMADIN/WARFARIN INR THERAPY RANGESSTANDARD DOSE: 2.0 - 3.0 Includes: PROPHYLAXIS forvenous thrombosis, systemic embolization; TREATMENT for venous thrombosis and/or pulmonary embolus.HIGH RISK: Target INR is 2.5-3.5 for patients with mechanical heart valves.30 minutes after administration of Nrzspel16 minutes after administration of KcentraPROTHROMBIN TIME/[id number] 15:33:00 Test Item Value Reference Range Comments PROTIME (BEAKER) (test kcis=921) 20.1 seconds 11.7-14.7 INR (BEAKER) (test nqkq=908) 1.7 <=5.9 RECOMMENDED COUMADIN/WARFARIN INR THERAPY RANGESSTANDARD DOSE: 2.0 - 3.0 Includes: PROPHYLAXIS forvenous thrombosis, systemic embolization; TREATMENT for venous thrombosis and/or pulmonary embolus.HIGH RISK: Target INR is 2.5-3.5 for patients with mechanical heart valves.Please draw 30 mins after Kcentra doseBODY FLUID CULTURE + GRAM [id number] 11:29:00 Test Item Value Reference Range Comments CULTURE (BEAKER) (test jmpm=1605) No growth GRAM STAIN RESULT (BEAKER) (test <1+ WBCs mvxk=6807) GRAM STAIN RESULT (BEAKER) (test No organisms seen qcnv=51563) CT, [id number] 10:30:00FINAL REPORT HISTORY : r/o intra abdominal [...] T11 and L2 vertebral bodies. Signed: Nick Landeroseport Verified Date/Time: 05/08/2018 10:30:57 Reading Location: [facility] Diagnostic Imaging Reading Room - [place] [id number] CBC W/PLT COUNT & AUTO [id number] 07:27:00 Test Item Value Reference Range Comments WHITE BLOOD CELL COUNT (BEAKER) (test bjdd=988) 3.1 K/ L 3.5-10.5 RED BLOOD CELL COUNT (BEAKER) (test fuvx=206) 2.27 M/ L 4.63-6.08 HEMOGLOBIN (BEAKER) (test dzou=662) 7.1 GM/DL 13.7-17.5 HEMATOCRIT (BEAKER) (test ntmd=558) 21.4 % 40.1-51.0 MEAN CORPUSCULAR VOLUME (BEAKER) (test jmkw=022) 94.3 fL 79.0-92.2 MEAN CORPUSCULAR HEMOGLOBIN (BEAKER) (test 31.3 pg 25.7-32.2 qkve=970) MEAN CORPUSCULAR HEMOGLOBIN CONC (BEAKER) (test 33.2 GM/DL 32.3-36.5 jrha=892) RED CELL DISTRIBUTION WIDTH (BEAKER) (test 17.5 % 11.6-14.4 qmyz=743) PLATELET COUNT (BEAKER) (test qgpj=922) 43 K/CU MM 150-450 MEAN PLATELET VOLUME (BEAKER) (test hrai=918) 8.7 fL 9.4-12.4 NUCLEATED RED BLOOD CELLS (BEAKER) (test 0 /100 WBC 0-0 mnov=578) NEUTROPHILS RELATIVE PERCENT (BEAKER) (test 60 % cqsn=294) LYMPHOCYTES RELATIVE PERCENT (BEAKER) (test 16 % ehvc=205) MONOCYTES RELATIVE PERCENT (BEAKER) (test 17 % sssz=528) EOSINOPHILS RELATIVE PERCENT (BEAKER) (test 7 % ying=910) BASOPHILS RELATIVE PERCENT (BEAKER) (test 0 % sjvv=919) NEUTROPHILS ABSOLUTE COUNT (BEAKER) (test 1.85 K/ L 1.78-5.38 cmrp=397) LYMPHOCYTES ABSOLUTE COUNT (BEAKER) (test 0.48 K/ L 1.32-3.57 wism=095) MONOCYTES ABSOLUTE COUNT (BEAKER) (test rfna=323) 0.54 K/ L 0.30-0.82 EOSINOPHILS ABSOLUTE COUNT (BEAKER) (test 0.22 K/ L 0.04-0.54 vgls=756) BASOPHILS ABSOLUTE COUNT (BEAKER) (test bxuy=396) 0.00 K/ L 0.01-0.08 IMMATURE GRANULOCYTES-RELATIVE PERCENT (BEAKER) 0 % 0-1 (test ccde=7707) CBC W/PLT COUNT & AUTO [id number] 07:26:00 Test Item Value Reference Range Comments WHITE BLOOD CELL COUNT (BEAKER) (test equf=977) 2.9 K/ L 3.5-10.5 RED BLOOD CELL COUNT (BEAKER) (test zphr=086) 2.25 M/ L 4.63-6.08 HEMOGLOBIN (BEAKER) (test idyo=183) 7.1 GM/DL 13.7-17.5 HEMATOCRIT (BEAKER) (test guht=932) 21.4 % 40.1-51.0 MEAN CORPUSCULAR VOLUME (BEAKER) (test ixfw=848) 95.1 fL 79.0-92.2 MEAN CORPUSCULAR HEMOGLOBIN (BEAKER) (test 31.6 pg 25.7-32.2 hubw=072) MEAN CORPUSCULAR HEMOGLOBIN CONC (BEAKER) (test 33.2 GM/DL 32.3-36.5 fxjs=163) RED CELL DISTRIBUTION WIDTH (BEAKER) (test 17.5 % 11.6-14.4 srpo=878) PLATELET COUNT (BEAKER) (test ubuu=851) 44 K/CU MM 150-450 MEAN PLATELET VOLUME (BEAKER) (test ldrw=971) 9.3 fL 9.4-12.4 NUCLEATED RED BLOOD CELLS (BEAKER) (test 0 /100 WBC 0-0 erhk=261) NEUTROPHILS RELATIVE PERCENT (BEAKER) (test 59 % ntnt=382) LYMPHOCYTES RELATIVE PERCENT (BEAKER) (test 16 % lzuo=556) MONOCYTES RELATIVE PERCENT (BEAKER) (test 17 % orzp=811) EOSINOPHILS RELATIVE PERCENT (BEAKER) (test 7 % ztnd=400) BASOPHILS RELATIVE PERCENT (BEAKER) (test 0 % bitq=387) NEUTROPHILS ABSOLUTE COUNT (BEAKER) (test 1.72 K/ L 1.78-5.38 ewvf=806) LYMPHOCYTES ABSOLUTE COUNT (BEAKER) (test 0.46 K/ L 1.32-3.57 naxv=152) MONOCYTES ABSOLUTE COUNT (BEAKER) (test brbh=127) 0.51 K/ L 0.30-0.82 EOSINOPHILS ABSOLUTE COUNT (BEAKER) (test 0.21 K/ L 0.04-0.54 ejzp=776) BASOPHILS ABSOLUTE COUNT (BEAKER) (test wmnn=764) 0.01 K/ L 0.01-0.08 IMMATURE GRANULOCYTES-RELATIVE PERCENT (BEAKER) 1 % 0-1 (test qmqd=0756) BASIC METABOLIC [id number] 07:00:00 Test Item Value Reference Range Comments SODIUM (BEAKER) (test 130 meq/L 136-145 kvlw=669) POTASSIUM (BEAKER) (test 3.6 meq/L 3.5-5.1 rclr=158) CHLORIDE (BEAKER) (test 94 meq/L 98-107 knaa=029) CO2 (BEAKER) (test 27 meq/L 22-29 qgla=217) BLOOD UREA NITROGEN 19 mg/dL 7-21 (BEAKER) (test iqon=030) CREATININE (BEAKER) (test 1.40 mg/dL 0.57-1.25 jskf=421) GLUCOSE RANDOM (BEAKER) 111 mg/dL 70-105 (test cmkx=572) CALCIUM (BEAKER) (test 9.2 mg/dL 8.4-10.2 tqsg=426) EGFR (BEAKER) (test 53 mL/min/1.73 sq m ESTIMATED GFR IS NOT izlm=0852) ACCURATE CREATININE CLEARANCE IN PREDICTING GLOMERULAR FILTRATION RATE. ESTIMATED GFR IS NOT APPLICABLE FOR DIALYSIS PATIENTS. Specimen moderately ictericCOMPREHENSIVE METABOLIC [id number] 07:00:00 Test Item Value Reference Range Comments TOTAL PROTEIN (BEAKER) 5.7 gm/dL 6.0-8.3 (test wibt=639) ALBUMIN (BEAKER) (test 4.0 g/dL 3.5-5.0 qrwr=5605) ALKALINE PHOSPHATASE 92 U/L 40-150 (BEAKER) (test exvy=422) BILIRUBIN TOTAL (BEAKER) 4.6 mg/dL 0.2-1.2 (test oqrh=556) SODIUM (BEAKER) (test 130 meq/L 136-145 opvl=118) POTASSIUM (BEAKER) (test 3.6 meq/L 3.5-5.1 aqly=822) CHLORIDE (BEAKER) (test 94 meq/L 98-107 bywr=844) CO2 (BEAKER) (test 27 meq/L 22-29 nfdp=825) BLOOD UREA NITROGEN 19 mg/dL 7-21 (BEAKER) (test iumi=202) CREATININE (BEAKER) (test 1.40 mg/dL 0.57-1.25 erxs=477) GLUCOSE RANDOM (BEAKER) 111 mg/dL 70-105 (test hkxy=583) CALCIUM (BEAKER) (test 9.2 mg/dL 8.4-10.2 sxhm=112) AST (SGOT) (BEAKER) (test 16 U/L 5-34 cywl=539) ALT (SGPT) (BEAKER) (test 6 U/L 6-55 epdv=401) EGFR (BEAKER) (test 53 mL/min/1.73 sq m ESTIMATED GFR IS NOT btpx=1852) ACCURATE CREATININE CLEARANCE IN PREDICTING GLOMERULAR FILTRATION RATE. ESTIMATED GFR IS NOT APPLICABLE FOR DIALYSIS PATIENTS. Specimen moderately ictericHEPATIC FUNCTION [id number] 07:00:00 Test Item Value Reference Range Comments TOTAL PROTEIN (BEAKER) (test rwpq=299) 5.7 gm/dL 6.0-8.3 ALBUMIN (BEAKER) (test zwzg=0741) 4.0 g/dL 3.5-5.0 BILIRUBIN TOTAL (BEAKER) (test bxfu=405) 4.6 mg/dL 0.2-1.2 BILIRUBIN DIRECT (BEAKER) (test vmmd=005) 1.8 mg/dL 0.1-0.5 ALKALINE PHOSPHATASE (BEAKER) (test txtl=811) 92 U/L 40-150 AST (SGOT) (BEAKER) (test hxpq=524) 16 U/L 5-34 ALT (SGPT) (BEAKER) (test lhxg=224) 6 U/L 6-55 Specimen moderately [id number] 06:57:00 Test Item Value Reference Range Comments PARTIAL THROMBOPLASTIN TIME (BEAKER) (test 47.9 seconds 22.5-36.0 plgg=192) PROTHROMBIN TIME/[id number] 06:55:00 Test Item Value Reference Range Comments PROTIME (BELAWSON) (test uaat=453) 23.7 seconds 11.7-14.7 INR (BEAKER) (test yzys=790) 2.1 <=5.9 RECOMMENDED COUMADIN/WARFARIN INR THERAPY RANGESSTANDARD DOSE: 2.0 - 3.0 Includes: PROPHYLAXIS forvenous thrombosis, systemic embolization; TREATMENT for venous thrombosis and/or pulmonary embolus.HIGH RISK: Target INR is 2.5-3.5 for patients with mechanical heart valves.MR, SPINE, LUMBAR, WITHOUT [id number] 16:57:00FINAL REPORT MRI lumbar spine without contrast [...] Bain Verified Date/Time: 05/07/2018 16:57:00 Reading Location: [facility] Radiology Reading Room LACTIC ACID, VENOUS, WHOLE [id number] 14:13:00 Test Item Value Reference Range Comments LACTATE BLOOD VENOUS (2) (BEAKER) (test 2.6 mmol/L 0.5-2.2 qolo=1538) Effective 02/28/2016: Units/Reference Range ChangeNew: 0.5-2.2 mmol/L Previous: 5 -20 mg/dLSpecimen slightly ictericHEMOGLOBIN AND [id number] 13:51:00 Test Item Value Reference Range Comments HEMOGLOBIN (BEAKER) (test rwhr=561) 7.1 GM/DL 13.7-17.5 HEMATOCRIT (BEAKER) (test lhcj=181) 21.7 % 40.1-51.0 U/S, RENAL, [id number] 09:48:00Reason for exam:->AKIFINAL REPORT Renal ultrasound Clinical [...] Haque Verified Date/Time: 05/07/2018 09:48:55 Reading Location: [facility] [id number] Ultrasound Reading Room Electronically signed by: REECE HAQUE MD on 09:[id number] 09:04:00 Test Item Value Reference Range Comments MAGNESIUM (BEAKER) (test vzbi=875) 2.0 mg/dL 1.6-2.6 COMPREHENSIVE METABOLIC [id number] 09:04:00 Test Item Value Reference Range Comments TOTAL PROTEIN (BEAKER) 5.2 gm/dL 6.0-8.3 (test wcub=063) ALBUMIN (BEAKER) (test 3.5 g/dL 3.5-5.0 rbcw=8043) ALKALINE PHOSPHATASE 96 U/L 40-150 (BEAKER) (test znfb=993) BILIRUBIN TOTAL (BEAKER) 4.1 mg/dL 0.2-1.2 (test uaoc=367) SODIUM (BEAKER) (test 129 meq/L 136-145 etyg=120) POTASSIUM (BEAKER) (test 3.8 meq/L 3.5-5.1 jgvb=455) CHLORIDE (BEAKER) (test 96 meq/L 98-107 dsci=523) CO2 (BEAKER) (test 25 meq/L 22-29 hmrr=831) BLOOD UREA NITROGEN 22 mg/dL 7-21 (BEAKER) (test qmum=614) CREATININE (BEAKER) (test 1.57 mg/dL 0.57-1.25 eenx=931) GLUCOSE RANDOM (BEAKER) 122 mg/dL 70-105 (test ivse=265) CALCIUM (BEAKER) (test 8.9 mg/dL 8.4-10.2 zixk=981) AST (SGOT) (BEAKER) (test 15 U/L 5-34 uovb=169) ALT (SGPT) (BEAKER) (test 7 U/L 6-55 rkvh=157) EGFR (BEAKER) (test 47 mL/min/1.73 sq m ESTIMATED GFR IS NOT pgfu=9612) ACCURATE CREATININE CLEARANCE IN PREDICTING GLOMERULAR FILTRATION RATE. ESTIMATED GFR IS NOT APPLICABLE FOR DIALYSIS PATIENTS. Specimen moderately ictericHEPATIC FUNCTION [id number] 09:04:00 Test Item Value Reference Range Comments TOTAL PROTEIN (BEAKER) (test hhdl=043) 5.2 gm/dL 6.0-8.3 ALBUMIN (BEAKER) (test ztbz=5604) 3.5 g/dL 3.5-5.0 BILIRUBIN TOTAL (BEAKER) (test lkrn=843) 4.1 mg/dL 0.2-1.2 BILIRUBIN DIRECT (BEAKER) (test ciej=292) 1.8 mg/dL 0.1-0.5 ALKALINE PHOSPHATASE (BEAKER) (test fzqt=504) 96 U/L 40-150 AST (SGOT) (BEAKER) (test wusw=698) 15 U/L 5-34 ALT (SGPT) (BEAKER) (test xwka=868) 7 U/L 6-55 Specimen moderately ictericCBC W/PLT COUNT & AUTO [id number] 08: 26:00 Test Item Value Reference Range Comments WHITE BLOOD CELL COUNT (BEAKER) (test jwyt=882) 2.7 K/ L 3.5-10.5 RED BLOOD CELL COUNT (BEAKER) (test ygug=887) 2.13 M/ L 4.63-6.08 HEMOGLOBIN (BEAKER) (test cnju=149) 6.8 GM/DL 13.7-17.5 HEMATOCRIT (BEAKER) (test iotb=914) 19.5 % 40.1-51.0 MEAN CORPUSCULAR VOLUME (BEAKER) (test iiwo=684) 91.5 fL 79.0-92.2 MEAN CORPUSCULAR HEMOGLOBIN (BEAKER) (test 31.9 pg 25.7-32.2 cguz=334) MEAN CORPUSCULAR HEMOGLOBIN CONC (BEAKER) (test 34.9 GM/DL 32.3-36.5 kbzn=773) RED CELL DISTRIBUTION WIDTH (BEAKER) (test 17.5 % 11.6-14.4 wppa=424) PLATELET COUNT (BEAKER) (test opbj=974) 52 K/CU MM 150-450 MEAN PLATELET VOLUME (BEAKER) (test axns=752) 9.1 fL 9.4-12.4 NUCLEATED RED BLOOD CELLS (BEAKER) (test 0 /100 WBC 0-0 bsft=038) NEUTROPHILS RELATIVE PERCENT (BEAKER) (test 62 % zlrf=660) LYMPHOCYTES RELATIVE PERCENT (BEAKER) (test 16 % magb=123) MONOCYTES RELATIVE PERCENT (BEAKER) (test 17 % dtoo=002) EOSINOPHILS RELATIVE PERCENT (BEAKER) (test 4 % muix=476) BASOPHILS RELATIVE PERCENT (BEAKER) (test 0 % ibxh=719) NEUTROPHILS ABSOLUTE COUNT (BEAKER) (test 1.66 K/ L 1.78-5.38 vhyw=176) LYMPHOCYTES ABSOLUTE COUNT (BEAKER) (test 0.43 K/ L 1.32-3.57 tnyt=902) MONOCYTES ABSOLUTE COUNT (BEAKER) (test dzcu=451) 0.44 K/ L 0.30-0.82 EOSINOPHILS ABSOLUTE COUNT (BEAKER) (test 0.11 K/ L 0.04-0.54 xqbo=309) BASOPHILS ABSOLUTE COUNT (BEAKER) (test zlzp=358) 0.00 K/ L 0.01-0.08 IMMATURE GRANULOCYTES-RELATIVE PERCENT (BEAKER) 1 % 0-1 (test zgns=0515) PROTHROMBIN TIME/[id number] 08:08:00 Test Item Value Reference Range Comments PROTIME (BEAKER) (test qwav=250) 28.3 seconds 11.7-14.7 INR (BEAKER) (test yvpv=267) 2.7 <=5.9 RECOMMENDED COUMADIN/WARFARIN INR THERAPY RANGESSTANDARD DOSE: 2.0 - 3.0 Includes: PROPHYLAXIS forvenous thrombosis, systemic embolization; TREATMENT for venous thrombosis and/or pulmonary embolus.HIGH RISK: Target INR is 2.5-3.5 for patients with mechanical heart valves.[id number] 19:47:00 Test Item Value Reference Range Comments SODIUM (BEAKER) (test pjyy=128) 129 meq/L 136-145 POTASSIUM (BEAKER) (test xogn=642) 4.6 meq/L 3.5-5.1 CHLORIDE (BEAKER) (test ndob=336) 96 meq/L 98-107 CO2 (BEAKER) (test ojug=457) 22 meq/L 22-29 Call [id number] AND [id number] 19:27:00 Test Item Value Reference Range Comments HEMOGLOBIN (BEAKER) (test uign=456) 7.1 GM/DL 13.7-17.5 HEMATOCRIT (BEAKER) (test onxl=351) 21.4 % 40.1-51.0 Draw after transfusion of 1u RBC, notify hospitalist if Hgb remains less than 7.0HEMOGLOBIN AND [id number] 11:52:00 Test Item Value Reference Range Comments HEMOGLOBIN (BEAKER) (test qpoh=708) 6.3 GM/DL 13.7-17.5 HEMATOCRIT (BEAKER) (test hhik=299) 18.9 % 40.1-51.0 Notify Hepatology if Hgb< 7.0YUNIOR Sandoval PA-CPager#: .BASIC METABOLIC [id number] 05:55:00 Test Item Value Reference Range Comments SODIUM (BEAKER) (test 129 meq/L 136-145 kjms=069) POTASSIUM (BEAKER) (test 5.2 meq/L 3.5-5.1 kdau=949) CHLORIDE (BEAKER) (test 97 meq/L 98-107 rara=672) CO2 (BEAKER) (test 22 meq/L 22-29 jjzy=273) BLOOD UREA NITROGEN 28 mg/dL 7-21 (BEAKER) (test zaws=512) CREATININE (BEAKER) (test 1.95 mg/dL 0.57-1.25 nyhr=888) GLUCOSE RANDOM (BEAKER) 102 mg/dL 70-105 (test keoc=067) CALCIUM (BEAKER) (test 9.4 mg/dL 8.4-10.2 kket=593) EGFR (BEAKER) (test 36 mL/min/1.73 sq m ESTIMATED GFR IS NOT lnuc=4252) ACCURATE CREATININE CLEARANCE IN PREDICTING GLOMERULAR FILTRATION RATE. ESTIMATED GFR IS NOT APPLICABLE FOR DIALYSIS PATIENTS. Specimen slightly ictericHEPATIC FUNCTION [id number] 05:55:00 Test Item Value Reference Range Comments TOTAL PROTEIN (BEAKER) (test renv=494) 5.6 gm/dL 6.0-8.3 ALBUMIN (BEAKER) (test xngq=6233) 3.4 g/dL 3.5-5.0 BILIRUBIN TOTAL (BEAKER) (test fwek=047) 3.7 mg/dL 0.2-1.2 BILIRUBIN DIRECT (BEAKER) (test imcm=652) 2.5 mg/dL 0.1-0.5 ALKALINE PHOSPHATASE (BEAKER) (test slch=862) 108 U/L 40-150 AST (SGOT) (BEAKER) (test bcgo=604) 17 U/L 5-34 ALT (SGPT) (BEAKER) (test izqt=668) 7 U/L 6-55 Specimen slightly ictericCBC W/PLT COUNT & AUTO [id number] 05:42 :00 Test Item Value Reference Range Comments WHITE BLOOD CELL COUNT (BEAKER) (test iohr=317) 3.7 K/ L 3.5-10.5 RED BLOOD CELL COUNT (BEAKER) (test vtly=450) 2.10 M/ L 4.63-6.08 HEMOGLOBIN (BEAKER) (test eqrg=479) 6.5 GM/DL 13.7-17.5 HEMATOCRIT (BEAKER) (test zory=263) 19.8 % 40.1-51.0 MEAN CORPUSCULAR VOLUME (BEAKER) (test ufal=639) 94.3 fL 79.0-92.2 MEAN CORPUSCULAR HEMOGLOBIN (BEAKER) (test 31.0 pg 25.7-32.2 cjds=659) MEAN CORPUSCULAR HEMOGLOBIN CONC (BEAKER) (test 32.8 GM/DL 32.3-36.5 pmbc=563) RED CELL DISTRIBUTION WIDTH (BEAKER) (test 16.4 % 11.6-14.4 rhwf=915) PLATELET COUNT (BEAKER) (test wmll=965) 54 K/CU MM 150-450 MEAN PLATELET VOLUME (BEAKER) (test qirj=324) 9.8 fL 9.4-12.4 NUCLEATED RED BLOOD CELLS (BEAKER) (test 0 /100 WBC 0-0 cyks=098) NEUTROPHILS RELATIVE PERCENT (BEAKER) (test 62 % hewt=762) LYMPHOCYTES RELATIVE PERCENT (BEAKER) (test 15 % nnbw=640) MONOCYTES RELATIVE PERCENT (BEAKER) (test 18 % pskb=250) EOSINOPHILS RELATIVE PERCENT (BEAKER) (test 3 % jhvo=128) BASOPHILS RELATIVE PERCENT (BEAKER) (test 0 % sltq=139) NEUTROPHILS ABSOLUTE COUNT (BEAKER) (test 2.27 K/ L 1.78-5.38 xejf=643) LYMPHOCYTES ABSOLUTE COUNT (BEAKER) (test 0.56 K/ L 1.32-3.57 snmd=082) MONOCYTES ABSOLUTE COUNT (BEAKER) (test npkw=118) 0.66 K/ L 0.30-0.82 EOSINOPHILS ABSOLUTE COUNT (BEAKER) (test 0.12 K/ L 0.04-0.54 ttqz=719) BASOPHILS ABSOLUTE COUNT (BEAKER) (test kkau=498) 0.01 K/ L 0.01-0.08 IMMATURE GRANULOCYTES-RELATIVE PERCENT (BEAKER) 1 % 0-1 (test aucd=9899) PROTHROMBIN TIME/[id number] 05:34:00 Test Item Value Reference Range Comments PROTIME (BEAKER) (test hcys=090) 21.7 seconds 11.7-14.7 INR (BEAKER) (test lfzp=753) 1.9 <=5.9 RECOMMENDED COUMADIN/WARFARIN INR THERAPY RANGESSTANDARD DOSE: 2.0 - 3.0 Includes: PROPHYLAXIS forvenous thrombosis, systemic embolization; TREATMENT for venous thrombosis and/or pulmonary embolus.HIGH RISK: Target INR is 2.5-3.5 for patients with mechanical heart valves.EOSINOPHIL SMEAR, [id number] 21: 51:00 Test Item Value Reference Range Comments EOSINOPHIL SMEAR, URINE (BEAKER) (test No EOS seen No EOS seen mwzs=7778) BODY FLUID CELL COUNT WITH [id number] 21:42:00 Test Item Value Reference Range Comments APPEARANCE FLUID (BEAKER) (test orkq=641) Hazy Clear COLOR FLUID (BEAKER) (test qljp=170) Yellow Colorless, Straw RBC FLUID (BEAKER) (test hwwg=225) 70 /cu mm <=1 ADJUSTED WBC FLUID (BEAKER) (test kfwj=1068) 44 /cu mm <=5 LINING CELLS (BEAKER) (test rypf=0866) 8 /cu mm <=1 NEUTROPHILS FLUID (BEAKER) (test qwsz=3970) 0 % LYMPHS FLUID (BEAKER) (test ztxr=634) 11 % MONO/MACROPHAGE FLUID (BEAKER) (test crvz=257) 89 % EOSINOPHILS FLUID (BEAKER) (test etjw=810) 0 % BASO FLUID (BEAKER) (test whfd=233) 0 % CONTAINER BODY FLUID (BEAKER) (test otia=0242) EDTA Tube OSMOLALITY, [id number] 19:46:00 Test Item Value Reference Range Comments OSMOLALITY URINE (BEAKER) (test puxg=245) 355 mOsm/kg 40-1400 SODIUM, RANDOM [id number] 19:35:00 Test Item Value Reference Range Comments SODIUM URINE (BEAKER) (test dqgp=458) < meq/L Reference Range: No NormalsPROTEIN, RANDOM [id number] 19:27:00 Test Item Value Reference Range Comments PROTEIN, URINE (BEAKER) (test snta=3299) 7 mg/dL 0-14 CREATININE, RANDOM [id number] 19:25:00 Test Item Value Reference Range Comments CREATININE URINE (BEAKER) (test xmrd=605) 150.3 mg/dL Reference Range: No [id number] 16:26:00 Test Item Value Reference Range Comments PREALBUMIN (BEAKER) (test cvsq=747) 5 mg/dL 14-45 Listed for OLT - Nutrition Surveillance ([facility] Hepatology Transplant Team)U/S, [id number] 14:56:00Reason for exam:->ascites - limit to 5L [...] MDReport Verified Date/Time: 05/05/2018 14:56:27 Reading Location: [address] Ultrasound Reading Room [facility] METABOLIC [id number] 09:36:00 Test Item Value Reference Range Comments SODIUM (BEAKER) (test 125 meq/L 136-145 gdtb=941) POTASSIUM (BEAKER) (test 4.2 meq/L 3.5-5.1 uowi=727) CHLORIDE (BEAKER) (test 95 meq/L 98-107 pmwb=962) CO2 (BEAKER) (test 23 meq/L 22-29 matc=633) BLOOD UREA NITROGEN 29 mg/dL 7-21 (BEAKER) (test rega=928) CREATININE (BEAKER) (test 2.01 mg/dL 0.57-1.25 upqx=765) GLUCOSE RANDOM (BEAKER) 112 mg/dL 70-105 (test oycz=298) CALCIUM (BEAKER) (test 9.2 mg/dL 8.4-10.2 txkb=523) EGFR (BEAKER) (test 35 mL/min/1.73 sq m ESTIMATED GFR IS NOT whjq=1472) ACCURATE CREATININE CLEARANCE IN PREDICTING GLOMERULAR FILTRATION RATE. ESTIMATED GFR IS NOT APPLICABLE FOR DIALYSIS PATIENTS. Specimen slightly ictericHEPATIC FUNCTION [id number] 09:36:00 Test Item Value Reference Range Comments TOTAL PROTEIN (BEAKER) (test wsln=540) 5.3 gm/dL 6.0-8.3 ALBUMIN (BEAKER) (test iwdv=8677) 3.0 g/dL 3.5-5.0 BILIRUBIN TOTAL (BEAKER) (test ygda=081) 4.1 mg/dL 0.2-1.2 BILIRUBIN DIRECT (BEAKER) (test wtmj=956) 2.8 mg/dL 0.1-0.5 ALKALINE PHOSPHATASE (BEAKER) (test wqws=879) 115 U/L 40-150 AST (SGOT) (BEAKER) (test fyvk=800) 20 U/L 5-34 ALT (SGPT) (BEAKER) (test suvb=430) 9 U/L 6-55 Specimen slightly ictericCBC W/PLT COUNT & AUTO [id number] 09:28 :00 Test Item Value Reference Range Comments WHITE BLOOD CELL COUNT (BEAKER) (test ndcv=460) 4.4 K/ L 3.5-10.5 RED BLOOD CELL COUNT (BEAKER) (test ollv=647) 2.20 M/ L 4.63-6.08 HEMOGLOBIN (BEAKER) (test ojjq=901) 7.1 GM/DL 13.7-17.5 HEMATOCRIT (BEAKER) (test spud=890) 21.1 % 40.1-51.0 MEAN CORPUSCULAR VOLUME (BEAKER) (test ybuf=060) 95.9 fL 79.0-92.2 MEAN CORPUSCULAR HEMOGLOBIN (BEAKER) (test 32.3 pg 25.7-32.2 qrqt=703) MEAN CORPUSCULAR HEMOGLOBIN CONC (BEAKER) (test 33.6 GM/DL 32.3-36.5 oesu=768) RED CELL DISTRIBUTION WIDTH (BEAKER) (test 16.7 % 11.6-14.4 fmdq=635) PLATELET COUNT (BEAKER) (test dmxm=502) 60 K/CU MM 150-450 MEAN PLATELET VOLUME (BEAKER) (test gnjs=150) 9.7 fL 9.4-12.4 NUCLEATED RED BLOOD CELLS (BEAKER) (test 0 /100 WBC 0-0 fspp=020) NEUTROPHILS RELATIVE PERCENT (BEAKER) (test 71 % fuaf=815) LYMPHOCYTES RELATIVE PERCENT (BEAKER) (test 9 % rbwd=157) MONOCYTES RELATIVE PERCENT (BEAKER) (test 16 % haek=717) EOSINOPHILS RELATIVE PERCENT (BEAKER) (test 3 % heow=970) BASOPHILS RELATIVE PERCENT (BEAKER) (test 0 % mczy=317) NEUTROPHILS ABSOLUTE COUNT (BEAKER) (test 3.10 K/ L 1.78-5.38 uoor=543) LYMPHOCYTES ABSOLUTE COUNT (BEAKER) (test 0.39 K/ L 1.32-3.57 csmt=322) MONOCYTES ABSOLUTE COUNT (BEAKER) (test qcsj=263) 0.69 K/ L 0.30-0.82 EOSINOPHILS ABSOLUTE COUNT (BEAKER) (test 0.12 K/ L 0.04-0.54 wttb=266) BASOPHILS ABSOLUTE COUNT (BEAKER) (test yuev=550) 0.01 K/ L 0.01-0.08 IMMATURE GRANULOCYTES-RELATIVE PERCENT (BEAKER) 1 % 0-1 (test vqrc=1860) PROTHROMBIN [id number] 09:07:00 Test Item Value Reference Range Comments PROTIME (BEAKER) (test sfae=698) 21.6 seconds 11.7-14.7 INR (BEAKER) (test extb=851) 1.9 <=5.9 RECOMMENDED COUMADIN/WARFARIN INR THERAPY RANGESSTANDARD DOSE: 2.0 - 3.0 Includes: PROPHYLAXIS forvenous thrombosis, systemic embolization; TREATMENT for venous thrombosis and/or pulmonary embolus.HIGH RISK: Target INR is 2.5-3.5 for patients with mechanical heart valves.[id number] 13:59:00 Test Item Value Reference Range Comments POC-CREATININE (TUGN) 2.0 mg/dL 0.6-1.3 TESTED AT [facility] [address] (test hywi=1209) [facility] [address] POC-EGFR (TUNG) (test 35 mL/min/1.73M2 gdos=2300) PET/CT, LIMITED AREA [id number] 08:25:00PET/ CT ChestReason for Exam:-> Elongated nodular [...] thighsAdditional imaging: NoneSerum blood glucose: 119CPT Code: 72923 FINDINGS:Head and Neck: There is no trisha [...] Hung Verified Date/Time: 03/31/2018 08:25:09 POCT- GLUCOSE [id number] 14:54:00 Test Item Value Reference Range Comments POC-GLUCOSE METER (BEAKER) 119 mg/dL 70-110 TESTED AT [facility] [address] [facility] (test uubz=8711) [facility] [address] COMPREHENSIVE METABOLIC [id number] 16:49:00 Test Item Value Reference Range Comments TOTAL PROTEIN (BEAKER) 6.2 gm/dL 6.0-8.3 (test cbeu=380) ALBUMIN (BEAKER) (test 3.4 g/dL 3.5-5.0 bxzo=3390) ALKALINE PHOSPHATASE 139 U/L 40-150 (BEAKER) (test oshc=734) BILIRUBIN TOTAL (BEAKER) 4.0 mg/dL 0.2-1.2 (test gohy=763) SODIUM (BEAKER) (test 129 meq/L 136-145 seaj=881) POTASSIUM (BEAKER) (test 4.3 meq/L 3.5-5.1 qgpm=037) CHLORIDE (BEAKER) (test 96 meq/L 98-107 whub=839) CO2 (BEAKER) (test 22 meq/L 22-29 smmf=469) BLOOD UREA NITROGEN 28 mg/dL 7-21 (BEAKER) (test jcxw=775) CREATININE (BEAKER) (test 1.51 mg/dL 0.57-1.25 qote=128) GLUCOSE RANDOM (BEAKER) 89 mg/dL 70-105 (test cihi=898) CALCIUM (BEAKER) (test 9.5 mg/dL 8.4-10.2 mkkt=171) AST (SGOT) (BEAKER) (test 26 U/L 5-34 kblh=779) ALT (SGPT) (BEAKER) (test 11 U/L 6-55 rfon=029) EGFR (BEAKER) (test 49 mL/min/1.73 sq m ESTIMATED GFR IS NOT jymu=6990) ACCURATE CREATININE CLEARANCE IN PREDICTING GLOMERULAR FILTRATION RATE. ESTIMATED GFR IS NOT APPLICABLE FOR DIALYSIS PATIENTS. Specimen slightly ictericBILIRUBIN, [id number] 16:49:00 Test Item Value Reference Range Comments BILIRUBIN DIRECT (BEAKER) (test ogmd=681) 2.8 mg/dL 0.1-0.5 PROTHROMBIN TIME/[id number] 16:36:00 Test Item Value Reference Range Comments PROTIME (BEAKER) (test dbjn=435) 19.0 seconds 11.7-14.7 INR (BEAKER) (test yktm=197) 1.6 <=5.9 RECOMMENDED COUMADIN/WARFARIN INR THERAPY RANGESSTANDARD DOSE: 2.0 - 3.0 Includes: PROPHYLAXIS forvenous thrombosis, systemic embolization; TREATMENT for venous thrombosis and/or pulmonary embolus.HIGH RISK: Target INR is 2.5-3.5 for patients with mechanical heart valves.CBC W/PLT COUNT & AUTO [id number] 16:27:00 Test Item Value Reference Range Comments WHITE BLOOD CELL COUNT (BEAKER) (test uwdf=876) 6.0 K/ L 3.5-10.5 RED BLOOD CELL COUNT (BEAKER) (test ckuo=014) 2.74 M/ L 4.63-6.08 HEMOGLOBIN (BEAKER) (test tsrl=147) 9.3 GM/DL 13.7-17.5 HEMATOCRIT (BEAKER) (test nenv=276) 27.6 % 40.1-51.0 MEAN CORPUSCULAR VOLUME (BEAKER) (test hlqd=832) 100.7 fL 79.0-92.2 MEAN CORPUSCULAR HEMOGLOBIN (BEAKER) (test 33.9 pg 25.7-32.2 urss=395) MEAN CORPUSCULAR HEMOGLOBIN CONC (BEAKER) (test 33.7 GM/DL 32.3-36.5 etww=893) RED CELL DISTRIBUTION WIDTH (BEAKER) (test 14.9 % 11.6-14.4 qmve=478) PLATELET COUNT (BEAKER) (test bpum=973) 96 K/CU MM 150-450 MEAN PLATELET VOLUME (BEAKER) (test pjkz=630) 9.4 fL 9.4-12.4 NUCLEATED RED BLOOD CELLS (BEAKER) (test 0 /100 WBC 0-0 wgpt=091) NEUTROPHILS RELATIVE PERCENT (BEAKER) (test 64 % rwwj=600) LYMPHOCYTES RELATIVE PERCENT (BEAKER) (test 11 % mjoq=726) MONOCYTES RELATIVE PERCENT (BEAKER) (test 16 % ifgg=477) EOSINOPHILS RELATIVE PERCENT (BEAKER) (test 7 % ihur=874) BASOPHILS RELATIVE PERCENT (BEAKER) (test 1 % rftx=776) NEUTROPHILS ABSOLUTE COUNT (BEAKER) (test 3.83 K/ L 1.78-5.38 emkr=695) LYMPHOCYTES ABSOLUTE COUNT (BEAKER) (test 0.66 K/ L 1.32-3.57 oxqf=348) MONOCYTES ABSOLUTE COUNT (BEAKER) (test mhys=035) 0.95 K/ L 0.30-0.82 EOSINOPHILS ABSOLUTE COUNT (BEAKER) (test 0.41 K/ L 0.04-0.54 xala=495) BASOPHILS ABSOLUTE COUNT (BEAKER) (test owuq=026) 0.03 K/ L 0.01-0.08 IMMATURE GRANULOCYTES-RELATIVE PERCENT (BEAKER) 2 % 0-1 (test cwdr=6817) BASIC METABOLIC [id number] 08:26:00 Test Item Value Reference Range Comments SODIUM (BEAKER) (test 127 meq/L 136-145 xsok=262) POTASSIUM (BEAKER) (test 4.3 meq/L 3.5-5.1 jght=630) CHLORIDE (BEAKER) (test 96 meq/L 98-107 smup=057) CO2 (BEAKER) (test 23 meq/L 22-29 dlkg=394) BLOOD UREA NITROGEN 25 mg/dL 7-21 (BEAKER) (test arqk=496) CREATININE (BEAKER) (test 1.46 mg/dL 0.57-1.25 rrzn=063) GLUCOSE RANDOM (BEAKER) 130 mg/dL 70-105 (test foff=064) CALCIUM (BEAKER) (test 9.1 mg/dL 8.4-10.2 xxfm=670) EGFR (BEAKER) (test 51 mL/min/1.73 sq m ESTIMATED GFR IS NOT yjso=2183) ACCURATE CREATININE CLEARANCE IN PREDICTING GLOMERULAR FILTRATION RATE. ESTIMATED GFR IS NOT APPLICABLE FOR DIALYSIS PATIENTS. Specimen slightly ictericCBC (HEMOGRAM ONLY)2018-02-23 08:06:00 Test Item Value Reference Range Comments WHITE BLOOD CELL COUNT (BEAKER) (test xyvd=411) 5.4 K/ L 3.5-10.5 RED BLOOD CELL COUNT (BEAKER) (test suur=654) 2.64 M/ L 4.63-6.08 HEMOGLOBIN (BEAKER) (test ukor=103) 8.8 GM/DL 13.7-17.5 HEMATOCRIT (BEAKER) (test ngau=531) 26.2 % 40.1-51.0 MEAN CORPUSCULAR VOLUME (BEAKER) (test iimz=019) 99.2 fL 79.0-92.2 MEAN CORPUSCULAR HEMOGLOBIN (BEAKER) (test 33.3 pg 25.7-32.2 wqyy=029) MEAN CORPUSCULAR HEMOGLOBIN CONC (BEAKER) (test 33.6 GM/DL 32.3-36.5 ywqn=890) RED CELL DISTRIBUTION WIDTH (BEAKER) (test 16.2 % 11.6-14.4 aoxh=483) PLATELET COUNT (BEAKER) (test jdiu=199) 100 K/CU MM 150-450 MEAN PLATELET VOLUME (BEAKER) (test nazz=396) 8.7 fL 9.4-12.4 NUCLEATED RED BLOOD CELLS (BEAKER) (test 0 /100 WBC 0-0 vmzr=453) COMPREHENSIVE METABOLIC [id number] 15:06:00 Test Item Value Reference Range Comments TOTAL PROTEIN (BEAKER) 6.5 gm/dL 6.0-8.3 (test znwz=778) ALBUMIN (BEAKER) (test 3.7 g/dL 3.5-5.0 wbuf=4709) ALKALINE PHOSPHATASE 135 U/L 40-150 (BEAKER) (test brbu=983) BILIRUBIN TOTAL (BEAKER) 4.5 mg/dL 0.2-1.2 (test gygl=042) SODIUM (BEAKER) (test 131 meq/L 136-145 txws=301) POTASSIUM (BEAKER) (test 5.8 meq/L 3.5-5.1 tkil=148) CHLORIDE (BEAKER) (test 103 meq/L 98-107 ynxo=692) CO2 (BEAKER) (test 24 meq/L 22-29 wrdb=338) BLOOD UREA NITROGEN 27 mg/dL 7-21 (BEAKER) (test ilvp=631) CREATININE (BEAKER) (test 1.17 mg/dL 0.57-1.25 twqx=374) GLUCOSE RANDOM (BEAKER) 111 mg/dL 70-105 (test vtmz=941) CALCIUM (BEAKER) (test 11.0 mg/dL 8.4-10.2 obsz=123) AST (SGOT) (BEAKER) (test 28 U/L 5-34 audt=288) ALT (SGPT) (BEAKER) (test 19 U/L 6-55 syxl=130) EGFR (BEAKER) (test 65 mL/min/1.73 sq m ESTIMATED GFR IS NOT cgje=8539) ACCURATE CREATININE CLEARANCE IN PREDICTING GLOMERULAR FILTRATION RATE. ESTIMATED GFR IS NOT APPLICABLE FOR DIALYSIS PATIENTS. Specimen slightly ictericBILIRUBIN, [id number] 15:06:00 Test Item Value Reference Range Comments BILIRUBIN DIRECT (BEAKER) (test gsil=076) 3.0 mg/dL 0.1-0.5 PROTHROMBIN [id number] 14:42:00 Test Item Value Reference Range Comments PROTIME (BEAKER) (test htmj=761) 19.1 seconds 11.7-14.7 INR (BEAKER) (test acel=519) 1.6 <=5.9 RECOMMENDED COUMADIN/WARFARIN INR THERAPY RANGESSTANDARD DOSE: 2.0 - 3.0 Includes: PROPHYLAXIS forvenous thrombosis, systemic embolization; TREATMENT for venous thrombosis and/or pulmonary embolus.HIGH RISK: Target INR is 2.5-3.5 for patients with mechanical heart valves.CBC W/PLT COUNT & AUTO [id number] 14:36:00 Test Item Value Reference Range Comments WHITE BLOOD CELL COUNT (BEAKER) (test fmsp=233) 5.5 K/ L 3.5-10.5 RED BLOOD CELL COUNT (BEAKER) (test bfup=185) 2.84 M/ L 4.63-6.08 HEMOGLOBIN (BEAKER) (test fefb=796) 9.5 GM/DL 13.7-17.5 HEMATOCRIT (BEAKER) (test enuh=645) 28.8 % 40.1-51.0 MEAN CORPUSCULAR VOLUME (BEAKER) (test tcsb=498) 101.4 fL 79.0-92.2 MEAN CORPUSCULAR HEMOGLOBIN (BEAKER) (test 33.5 pg 25.7-32.2 hmgp=231) MEAN CORPUSCULAR HEMOGLOBIN CONC (BEAKER) (test 33.0 GM/DL 32.3-36.5 twsr=007) RED CELL DISTRIBUTION WIDTH (BEAKER) (test 19.4 % 11.6-14.4 rquq=674) PLATELET COUNT (BEAKER) (test fnuf=909) 65 K/CU MM 150-450 MEAN PLATELET VOLUME (BEAKER) (test hxui=249) 8.8 fL 9.4-12.4 NUCLEATED RED BLOOD CELLS (BEAKER) (test 0 /100 WBC 0-0 piqf=803) NEUTROPHILS RELATIVE PERCENT (BEAKER) (test 66 % guwz=448) LYMPHOCYTES RELATIVE PERCENT (BEAKER) (test 14 % ydlg=420) MONOCYTES RELATIVE PERCENT (BEAKER) (test 15 % lzek=744) EOSINOPHILS RELATIVE PERCENT (BEAKER) (test 4 % gycr=253) BASOPHILS RELATIVE PERCENT (BEAKER) (test 0 % tblp=074) NEUTROPHILS ABSOLUTE COUNT (BEAKER) (test 3.58 K/ L 1.78-5.38 mvru=718) LYMPHOCYTES ABSOLUTE COUNT (BEAKER) (test 0.78 K/ L 1.32-3.57 qbhd=842) MONOCYTES ABSOLUTE COUNT (BEAKER) (test qxuq=499) 0.79 K/ L 0.30-0.82 EOSINOPHILS ABSOLUTE COUNT (BEAKER) (test 0.23 K/ L 0.04-0.54 idtg=841) BASOPHILS ABSOLUTE COUNT (BEAKER) (test viij=563) 0.02 K/ L 0.01-0.08 IMMATURE GRANULOCYTES-RELATIVE PERCENT (BEAKER) 1 % 0-1 (test eupx=9760) RAD, KNEE, COMPLETE (4 VIEWS), [id number] 11:15:00Reason for exam:->FALL , PAINFINAL REPORT Bilateral [...] MDRstanort Verified Date/Time: 01/06/2018 11:15:08 Reading Location: [facility] Radiology Reading Room RAD, KNEE, COMPLETE (4 VIEWS), [id number] 11:15:00Reason for exam:->FALL, PAINFINAL REPORT Bilateral knee [...] MDReport Verified Date/Time: 01/06/2018 11:15:08 Reading Location: [facility] Radiology Reading Room CBC W/PLT COUNT & AUTO [id number] 10: 58:00 Test Item Value Reference Range Comments WHITE BLOOD CELL COUNT (BEAKER) (test jope=677) 2.9 K/ L 3.5-10.5 RED BLOOD CELL COUNT (BEAKER) (test fqkz=065) 2.27 M/ L 4.63-6.08 HEMOGLOBIN (BEAKER) (test sdjp=421) 7.1 GM/DL 13.7-17.5 HEMATOCRIT (BEAKER) (test iiro=684) 21.0 % 40.1-51.0 MEAN CORPUSCULAR VOLUME (BEAKER) (test xigo=480) 92.5 fL 79.0-92.2 MEAN CORPUSCULAR HEMOGLOBIN (BEAKER) (test 31.3 pg 25.7-32.2 fvdy=504) MEAN CORPUSCULAR HEMOGLOBIN CONC (BEAKER) (test 33.8 GM/DL 32.3-36.5 yqvh=463) RED CELL DISTRIBUTION WIDTH (BEAKER) (test 17.2 % 11.6-14.4 kupn=037) PLATELET COUNT (BEAKER) (test tnbp=087) 42 K/CU MM 150-450 MEAN PLATELET VOLUME (BEAKER) (test wjvh=212) 10.1 fL 9.4-12.4 NUCLEATED RED BLOOD CELLS (BEAKER) (test 0 /100 WBC 0-0 mekp=230) NEUTROPHILS RELATIVE PERCENT (BEAKER) (test 77 % jlqb=638) LYMPHOCYTES RELATIVE PERCENT (BEAKER) (test 12 % fcxu=954) MONOCYTES RELATIVE PERCENT (BEAKER) (test 10 % xwbl=858) EOSINOPHILS RELATIVE PERCENT (BEAKER) (test 1 % agkb=195) BASOPHILS RELATIVE PERCENT (BEAKER) (test 0 % ynog=318) NEUTROPHILS ABSOLUTE COUNT (BEAKER) (test 2.21 K/ L 1.78-5.38 lwrs=572) LYMPHOCYTES ABSOLUTE COUNT (BEAKER) (test 0.33 K/ L 1.32-3.57 vdxh=113) MONOCYTES ABSOLUTE COUNT (BEAKER) (test eivk=076) 0.30 K/ L 0.30-0.82 EOSINOPHILS ABSOLUTE COUNT (BEAKER) (test 0.03 K/ L 0.04-0.54 puke=902) BASOPHILS ABSOLUTE COUNT (BEAKER) (test adix=307) 0.00 K/ L 0.01-0.08 IMMATURE GRANULOCYTES-RELATIVE PERCENT (BEAKER) 0 % 0-1 (test zgtg=0587) [id number] 06:06:00 Test Item Value Reference Range Comments PHOSPHORUS (BEAKER) (test qtfg=779) 3.6 mg/dL 2.3-4.7 [id number] 06:06:00 Test Item Value Reference Range Comments MAGNESIUM (BEAKER) (test aqxx=702) 2.0 mg/dL 1.6-2.6 BASIC METABOLIC [id number] 06:06:00 Test Item Value Reference Range Comments SODIUM (BEAKER) (test 130 meq/L 136-145 lzjy=518) POTASSIUM (BEAKER) (test 4.4 meq/L 3.5-5.1 lrhl=495) CHLORIDE (BEAKER) (test 100 meq/L 98-107 ofbd=182) CO2 (BEAKER) (test 23 meq/L 22-29 oxyv=542) BLOOD UREA NITROGEN 21 mg/dL 7-21 (BEAKER) (test gelp=402) CREATININE (BEAKER) (test 1.11 mg/dL 0.57-1.25 clzy=463) GLUCOSE RANDOM (BEAKER) 120 mg/dL 70-105 (test tycg=715) CALCIUM (BEAKER) (test 9.4 mg/dL 8.4-10.2 mhcw=041) EGFR (BEAKER) (test 70 mL/min/1.73 sq m ESTIMATED GFR IS NOT qmcg=4344) ACCURATE CREATININE CLEARANCE IN PREDICTING GLOMERULAR FILTRATION RATE. ESTIMATED GFR IS NOT APPLICABLE FOR DIALYSIS PATIENTS. Specimen slightly ictericPROTHROMBIN [id number] 06:02:00 Test Item Value Reference Range Comments PROTIME (BEAKER) (test pcjo=962) 22.9 seconds 11.7-14.7 INR (BEAKER) (test cpdo=035) 2.0 <=5.9 RECOMMENDED COUMADIN/WARFARIN INR THERAPY RANGESSTANDARD DOSE: 2.0 - 3.0 Includes: PROPHYLAXIS forvenous thrombosis, systemic embolization; TREATMENT for venous thrombosis and/or pulmonary embolus.HIGH RISK: Target INR is 2.5-3.5 for patients with mechanical heart valves.CALCIUM, [id number] 06:01:00 Test Item Value Reference Range Comments CALCIUM IONIZED (BEAKER) (test synf=113) 1.11 mmol/L 1.12-1.27 PH, BLOOD (BEAKER) (test ntog=7062) 7.53 CORTISOL,60 [id number] 23:20:00 Test Item Value Reference Range Comments CORTISOL BASELINE NETWORKED (BEAKER) (test 4.8 mcg/dL dldd=0691) CORTISOL 30 MINUTE NETWORKED (BEAKER) (test 9.2 mcg/dL qjxs=6563) CORTISOL, 60 MINUTE (BEAKER) (test xskd=8936) 12.6 ug/dL ACTH STIMULATION TEST INTERPRETATION GUIDELINES(Synonyms: [...] serum cortisollevel 60 minutes after cosyntropin administration.CORTISOL,30 [id number] 22:35:00 Test Item Value Reference Range Comments CORTISOL BASELINE NETWORKED (BEAKER) (test 4.8 mcg/dL jlbf=5521) CORTISOL, 30 MINUTE (BEAKER) (test busz=5589) 9.2 ug/dL ACTH STIMULATION TEST INTERPRETATION GUIDELINES(Synonyms: [...] Draw serum cortisollevel 60 minutes after cosyntropin administration.CORTISOL,[id number] 22:35:00 Test Item Value Reference Range Comments CORTISOL, BASELINE (TUNG) (test intn=0696) 4.8 ug/dL ACTH STIMULATION TEST INTERPRETATION GUIDELINES(Synonyms: [...] serum cortisollevel 60 minutes after cosyntropin administration.U/S, [id number] 17:54:00Reason for exam:->therapeuticFINAL REPORT History: Ascites. PROCEDURE: Following informed written consent,the patient's right lower quadrant was prepped and draped in the usual sterile manner. 2% lidocaine was given locally for anesthesia. No conscious sedation was administered. Using ultrasound guidance, a 5 [place] one-step catheter was advanced percutaneously into the [...] Verified Date/Time: 01/05/2018 17: 54:16 Reading Location: [facility] P006 Ultrasound Reading Room [id number] 11:19:00 Test Item Value Reference Range Comments CORTISOL, TOTAL (BEAKER) (test vblv=6460) 2.7 ug/dL 3.7-19.4 [id number] 10:21:00 Test Item Value Reference Range Comments PHOSPHORUS (BEAKER) (test llnv=362) 2.8 mg/dL 2.3-4.7 [id number] 10:21:00 Test Item Value Reference Range Comments MAGNESIUM (BEAKER) (test hbsz=885) 1.9 mg/dL 1.6-2.6 BASIC METABOLIC [id number] 10:21:00 Test Item Value Reference Range Comments SODIUM (BEAKER) (test 127 meq/L 136-145 niyp=631) POTASSIUM (BEAKER) (test 5.0 meq/L 3.5-5.1 duuw=859) CHLORIDE (BEAKER) (test 100 meq/L 98-107 gbuc=997) CO2 (BEAKER) (test 22 meq/L 22-29 wgzx=072) BLOOD UREA NITROGEN 25 mg/dL 7-21 (BEAKER) (test tjuw=724) CREATININE (BEAKER) (test 1.17 mg/dL 0.57-1.25 rtbg=753) GLUCOSE RANDOM (BEAKER) 84 mg/dL 70-105 (test dutz=208) CALCIUM (BEAKER) (test 8.7 mg/dL 8.4-10.2 rtas=307) EGFR (BEAKER) (test 65 mL/min/1.73 sq m ESTIMATED GFR IS NOT suwc=1552) ACCURATE CREATININE CLEARANCE IN PREDICTING GLOMERULAR FILTRATION RATE. ESTIMATED GFR IS NOT APPLICABLE FOR DIALYSIS PATIENTS. Specimen slightly ictericCBC W/PLT COUNT & AUTO [id number] 08:42 :00 Test Item Value Reference Range Comments WHITE BLOOD CELL COUNT (BEAKER) (test nsky=012) 2.7 K/ L 3.5-10.5 RED BLOOD CELL COUNT (BEAKER) (test vgsw=061) 2.33 M/ L 4.63-6.08 HEMOGLOBIN (BEAKER) (test nwih=353) 7.3 GM/DL 13.7-17.5 HEMATOCRIT (BEAKER) (test vifo=879) 22.0 % 40.1-51.0 MEAN CORPUSCULAR VOLUME (BEAKER) (test pkwx=491) 94.4 fL 79.0-92.2 MEAN CORPUSCULAR HEMOGLOBIN (BEAKER) (test 31.3 pg 25.7-32.2 wpya=733) MEAN CORPUSCULAR HEMOGLOBIN CONC (BEAKER) (test 33.2 GM/DL 32.3-36.5 apcg=354) RED CELL DISTRIBUTION WIDTH (BEAKER) (test 17.2 % 11.6-14.4 kzmg=872) PLATELET COUNT (BEAKER) (test iaxr=151) 45 K/CU MM 150-450 MEAN PLATELET VOLUME (BEAKER) (test cszt=405) 9.3 fL 9.4-12.4 NUCLEATED RED BLOOD CELLS (BEAKER) (test 0 /100 WBC 0-0 ikso=081) NEUTROPHILS RELATIVE PERCENT (BEAKER) (test 60 % vpzi=552) LYMPHOCYTES RELATIVE PERCENT (BEAKER) (test 17 % sgia=582) MONOCYTES RELATIVE PERCENT (BEAKER) (test 16 % ptot=567) EOSINOPHILS RELATIVE PERCENT (BEAKER) (test 6 % fuie=583) BASOPHILS RELATIVE PERCENT (BEAKER) (test 0 % obfx=795) NEUTROPHILS ABSOLUTE COUNT (BEAKER) (test 1.63 K/ L 1.78-5.38 sqtq=169) LYMPHOCYTES ABSOLUTE COUNT (BEAKER) (test 0.45 K/ L 1.32-3.57 vwyz=032) MONOCYTES ABSOLUTE COUNT (BEAKER) (test bxvs=462) 0.44 K/ L 0.30-0.82 EOSINOPHILS ABSOLUTE COUNT (BEAKER) (test 0.16 K/ L 0.04-0.54 qjxj=454) BASOPHILS ABSOLUTE COUNT (BEAKER) (test ucba=875) 0.01 K/ L 0.01-0.08 IMMATURE GRANULOCYTES-RELATIVE PERCENT (BEAKER) 1 % 0-1 (test rexn=9249) (MANUAL DIFFERENTIAL)2018-01-05 08:42:00 Test Item Value Reference Range Comments TOTAL COUNTED (BEAKER) (test tmnq=7003) WBC MORPHOLOGY (BEAKER) (test izuy=257) Normal PLT MORPHOLOGY (BEAKER) (test ariy=398) Normal ANISOCYTOSIS (BEAKER) (test pvos=343) 1+ few CALCIUM, [id number] 08:10:00 Test Item Value Reference Range Comments CALCIUM IONIZED (BEAKER) (test vbgb=288) 1.08 mmol/L 1.12-1.27 PH, BLOOD (BEAKER) (test ntoa=0671) 7.44 PROTHROMBIN [id number] 07:12:00 Test Item Value Reference Range Comments PROTIME (BEAKER) (test qtjs=986) 22.4 seconds 11.7-14.7 INR (BEAKER) (test ozcv=953) 2.0 <=5.9 RECOMMENDED COUMADIN/WARFARIN INR THERAPY RANGESSTANDARD DOSE: 2.0 - 3.0 Includes: PROPHYLAXIS forvenous thrombosis, systemic embolization; TREATMENT for venous thrombosis and/or pulmonary embolus.HIGH RISK: Target INR is 2.5-3.5 for patients with mechanical heart valves.[id number] 17:54:00 Test Item Value Reference Range Comments SODIUM (BEAKER) (test hmkf=435) 129 meq/L 136-145 POTASSIUM (BEAKER) (test yhnu=453) 5.5 meq/L 3.5-5.1 CHLORIDE (BEAKER) (test evov=342) 101 meq/L 98-107 CO2 (BEAKER) (test mdlz=156) 26 meq/L 22-29 Call [id number] with resultsCBC (HEMOGRAM ONLY)2018-01-04 07:16:00 Test Item Value Reference Range Comments WHITE BLOOD CELL COUNT (BEAKER) (test mnxc=289) 2.9 K/ L 3.5-10.5 RED BLOOD CELL COUNT (BEAKER) (test cixh=358) 2.25 M/ L 4.63-6.08 HEMOGLOBIN (BEAKER) (test ptmg=240) 7.3 GM/DL 13.7-17.5 HEMATOCRIT (BEAKER) (test izfm=608) 21.3 % 40.1-51.0 MEAN CORPUSCULAR VOLUME (BEAKER) (test yemz=863) 94.7 fL 79.0-92.2 MEAN CORPUSCULAR HEMOGLOBIN (BEAKER) (test 32.4 pg 25.7-32.2 pkie=543) MEAN CORPUSCULAR HEMOGLOBIN CONC (BEAKER) (test 34.3 GM/DL 32.3-36.5 cciu=274) RED CELL DISTRIBUTION WIDTH (BEAKER) (test 17.6 % 11.6-14.4 tkrs=616) PLATELET COUNT (BEAKER) (test xxxa=880) 59 K/CU MM 150-450 MEAN PLATELET VOLUME (BEAKER) (test ehlt=018) 11.3 fL 9.4-12.4 NUCLEATED RED BLOOD CELLS (BEAKER) (test 0 /100 WBC 0-0 gkdh=952) COMPREHENSIVE METABOLIC [id number] 06:49:00 Test Item Value Reference Range Comments TOTAL PROTEIN (BEAKER) 5.3 gm/dL 6.0-8.3 Specimen slightly (test muda=147) hemolyzed ALBUMIN (BEAKER) (test 3.3 g/dL 3.5-5.0 Specimen slightly qqrb=8009) hemolyzed ALKALINE PHOSPHATASE 81 U/L 40-150 (BEAKER) (test rqgi=203) BILIRUBIN TOTAL (BEAKER) 2.4 mg/dL 0.2-1.2 Specimen slightly (test paom=266) hemolyzed SODIUM (BEAKER) (test 127 meq/L 136-145 cpbo=593) POTASSIUM (BEAKER) (test 5.7 meq/L 3.5-5.1 Specimen slightly zwte=916) hemolyzed CHLORIDE (BEAKER) (test 100 meq/L 98-107 isnt=973) CO2 (BEAKER) (test 20 meq/L 22-29 wnwu=331) BLOOD UREA NITROGEN 22 mg/dL 7-21 (BEAKER) (test belk=520) CREATININE (BEAKER) (test 1.14 mg/dL 0.57-1.25 Specimen slightly szba=736) hemolyzed GLUCOSE RANDOM (BEAKER) 96 mg/dL 70-105 (test ppgc=245) CALCIUM (BEAKER) (test 8.9 mg/dL 8.4-10.2 ziir=997) AST (SGOT) (BEAKER) (test 30 U/L 5-34 Specimen slightly zbnk=929) hemolyzed ALT (SGPT) (BEAKER) (test 8 U/L 6-55 Specimen slightly dtje=043) hemolyzed EGFR (BEAKER) (test 67 mL/min/1.73 sq m ESTIMATED GFR IS NOT btcy=4780) ACCURATE CREATININE CLEARANCE IN PREDICTING GLOMERULAR FILTRATION RATE. ESTIMATED GFR IS NOT APPLICABLE FOR DIALYSIS PATIENTS. Specimen slightly ictericPROTHROMBIN [id number] 06:15:00 Test Item Value Reference Range Comments PROTIME (BEAKER) (test iysw=373) 22.7 seconds 11.7-14.7 INR (BEAKER) (test ldeo=607) 2.0 <=5.9 RECOMMENDED COUMADIN/WARFARIN INR THERAPY RANGESSTANDARD DOSE: 2.0 - 3.0 Includes: PROPHYLAXIS forvenous thrombosis, systemic embolization; TREATMENT for venous thrombosis and/or pulmonary embolus.HIGH RISK: Target INR is 2.5-3.5 for patients with mechanical heart valves.VITAMIN B12 AND [id number] 16:39 :00 Test Item Value Reference Range Comments VITAMIN B12 (BEAKER) (test qdbs=056) 829 pg/mL 213-816 FOLATE (BEAKER) (test qjcf=419) 18.9 ng/mL >=7.0 CALCIUM, [id number] 07:14:00 Test Item Value Reference Range Comments CALCIUM IONIZED (BEAKER) (test xwny=948) 1.08 mmol/L 1.12-1.27 PH, BLOOD (BEAKER) (test rnez=7905) 7.41 COMPREHENSIVE METABOLIC [id number] 07:00:00 Test Item Value Reference Range Comments TOTAL PROTEIN (BEAKER) 5.0 gm/dL 6.0-8.3 (test pnlb=837) ALBUMIN (BEAKER) (test 3.1 g/dL 3.5-5.0 otlv=0218) ALKALINE PHOSPHATASE 65 U/L 40-150 (BEAKER) (test ztam=548) BILIRUBIN TOTAL (BEAKER) 2.5 mg/dL 0.2-1.2 (test poat=233) SODIUM (BEAKER) (test 127 meq/L 136-145 ryrr=100) POTASSIUM (BEAKER) (test 4.7 meq/L 3.5-5.1 pqgb=424) CHLORIDE (BEAKER) (test 99 meq/L 98-107 nrvr=528) CO2 (BEAKER) (test 23 meq/L 22-29 cpmy=516) BLOOD UREA NITROGEN 21 mg/dL 7-21 (BEAKER) (test wkqx=313) CREATININE (BEAKER) (test 1.13 mg/dL 0.57-1.25 rysm=448) GLUCOSE RANDOM (BEAKER) 92 mg/dL 70-105 (test tmmh=395) CALCIUM (BEAKER) (test 8.9 mg/dL 8.4-10.2 uhyf=191) AST (SGOT) (BEAKER) (test 18 U/L 5-34 qwxx=642) ALT (SGPT) (BEAKER) (test 8 U/L 6-55 gcws=343) EGFR (BEAKER) (test 68 mL/min/1.73 sq m ESTIMATED GFR IS NOT jyue=9490) ACCURATE CREATININE CLEARANCE IN PREDICTING GLOMERULAR FILTRATION RATE. ESTIMATED GFR IS NOT APPLICABLE FOR DIALYSIS PATIENTS. [id number] 06:37:00 Test Item Value Reference Range Comments PHOSPHORUS (BEAKER) (test crqt=301) 3.2 mg/dL 2.3-4.7 [id number] 06:37:00 Test Item Value Reference Range Comments MAGNESIUM (BEAKER) (test kulk=158) 1.9 mg/dL 1.6-2.6 CBC (HEMOGRAM ONLY)2018-01-03 06:25:00 Test Item Value Reference Range Comments WHITE BLOOD CELL COUNT (BEAKER) (test pxyt=332) 3.1 K/ L 3.5-10.5 RED BLOOD CELL COUNT (BEAKER) (test szuh=132) 2.31 M/ L 4.63-6.08 HEMOGLOBIN (BEAKER) (test luhq=534) 7.4 GM/DL 13.7-17.5 HEMATOCRIT (BEAKER) (test zjfx=586) 21.6 % 40.1-51.0 MEAN CORPUSCULAR VOLUME (BEAKER) (test vxng=955) 93.5 fL 79.0-92.2 MEAN CORPUSCULAR HEMOGLOBIN (BEAKER) (test 32.0 pg 25.7-32.2 ilzu=201) MEAN CORPUSCULAR HEMOGLOBIN CONC (BEAKER) (test 34.3 GM/DL 32.3-36.5 ttjr=828) RED CELL DISTRIBUTION WIDTH (BEAKER) (test 17.4 % 11.6-14.4 feji=421) PLATELET COUNT (BEAKER) (test bamu=017) 50 K/CU MM 150-450 MEAN PLATELET VOLUME (BEAKER) (test hxol=883) 10.5 fL 9.4-12.4 NUCLEATED RED BLOOD CELLS (BEAKER) (test 0 /100 WBC 0-0 mkqz=433) PROTHROMBIN [id number] 06:09:00 Test Item Value Reference Range Comments PROTIME (BEAKER) (test pcgg=314) 22.2 seconds 11.7-14.7 INR (BEAKER) (test jljc=668) 2.0 <=5.9 RECOMMENDED COUMADIN/WARFARIN INR THERAPY RANGESSTANDARD DOSE: 2.0 - 3.0 Includes: PROPHYLAXIS forvenous thrombosis, systemic embolization; TREATMENT for venous thrombosis and/or pulmonary embolus.HIGH RISK: Target INR is 2.5-3.5 for patients with mechanical heart valves.[id number] 07:54:00 Test Item Value Reference Range Comments PHOSPHORUS (BEAKER) (test qjmz=304) 3.2 mg/dL 2.3-4.7 [id number] 07:54:00 Test Item Value Reference Range Comments MAGNESIUM (BEAKER) (test diat=691) 1.4 mg/dL 1.6-2.6 COMPREHENSIVE METABOLIC [id number] 07:54:00 Test Item Value Reference Range Comments TOTAL PROTEIN (BEAKER) 5.3 gm/dL 6.0-8.3 (test nwpo=198) ALBUMIN (BEAKER) (test 3.4 g/dL 3.5-5.0 leou=1510) ALKALINE PHOSPHATASE 55 U/L 40-150 (BEAKER) (test mdbk=065) BILIRUBIN TOTAL (BEAKER) 3.9 mg/dL 0.2-1.2 (test uxss=151) SODIUM (BEAKER) (test 131 meq/L 136-145 tcdy=022) POTASSIUM (BEAKER) (test 4.3 meq/L 3.5-5.1 ochf=232) CHLORIDE (BEAKER) (test 101 meq/L 98-107 emmm=388) CO2 (BEAKER) (test 23 meq/L 22-29 hxrg=605) BLOOD UREA NITROGEN 19 mg/dL 7-21 (BEAKER) (test xdbm=246) CREATININE (BEAKER) (test 0.97 mg/dL 0.57-1.25 oynm=173) GLUCOSE RANDOM (BEAKER) 80 mg/dL 70-105 (test oszm=969) CALCIUM (BEAKER) (test 9.4 mg/dL 8.4-10.2 slkm=689) AST (SGOT) (BEAKER) (test 17 U/L 5-34 okau=081) ALT (SGPT) (BEAKER) (test 8 U/L 6-55 ktbp=961) EGFR (BEAKER) (test 81 mL/min/1.73 sq m ESTIMATED GFR IS NOT ikmp=5720) ACCURATE CREATININE CLEARANCE IN PREDICTING GLOMERULAR FILTRATION RATE. ESTIMATED GFR IS NOT APPLICABLE FOR DIALYSIS PATIENTS. Specimen slightly ictericCBC W/PLT COUNT & AUTO [id number] 07:14 :00 Test Item Value Reference Range Comments WHITE BLOOD CELL COUNT (BEAKER) (test rasa=324) 2.9 K/ L 3.5-10.5 RED BLOOD CELL COUNT (BEAKER) (test mpfr=605) 2.55 M/ L 4.63-6.08 HEMOGLOBIN (BEAKER) (test kgbf=851) 8.1 GM/DL 13.7-17.5 HEMATOCRIT (BEAKER) (test aiud=889) 23.7 % 40.1-51.0 MEAN CORPUSCULAR VOLUME (BEAKER) (test ceyf=273) 92.9 fL 79.0-92.2 MEAN CORPUSCULAR HEMOGLOBIN (BEAKER) (test 31.8 pg 25.7-32.2 rovq=172) MEAN CORPUSCULAR HEMOGLOBIN CONC (BEAKER) (test 34.2 GM/DL 32.3-36.5 vfvt=698) RED CELL DISTRIBUTION WIDTH (BEAKER) (test 17.5 % 11.6-14.4 sctl=918) PLATELET COUNT (BEAKER) (test nswi=884) 50 K/CU MM 150-450 MEAN PLATELET VOLUME (BEAKER) (test rzhv=150) 9.5 fL 9.4-12.4 NUCLEATED RED BLOOD CELLS (BEAKER) (test 0 /100 WBC 0-0 stkl=779) NEUTROPHILS RELATIVE PERCENT (BEAKER) (test 57 % qhlf=352) LYMPHOCYTES RELATIVE PERCENT (BEAKER) (test 17 % kcrr=166) MONOCYTES RELATIVE PERCENT (BEAKER) (test 18 % mfmt=257) EOSINOPHILS RELATIVE PERCENT (BEAKER) (test 7 % lpbm=696) BASOPHILS RELATIVE PERCENT (BEAKER) (test 0 % nptn=234) NEUTROPHILS ABSOLUTE COUNT (BEAKER) (test 1.65 K/ L 1.78-5.38 eitu=682) LYMPHOCYTES ABSOLUTE COUNT (BEAKER) (test 0.49 K/ L 1.32-3.57 fddo=220) MONOCYTES ABSOLUTE COUNT (BEAKER) (test duxg=758) 0.51 K/ L 0.30-0.82 EOSINOPHILS ABSOLUTE COUNT (BEAKER) (test 0.20 K/ L 0.04-0.54 hcad=702) BASOPHILS ABSOLUTE COUNT (BEAKER) (test btlw=002) 0.01 K/ L 0.01-0.08 IMMATURE GRANULOCYTES-RELATIVE PERCENT (BEAKER) 1 % 0-1 (test rcht=4279) (MANUAL DIFFERENTIAL)2018-01-02 07:14:00 Test Item Value Reference Range Comments TOTAL COUNTED (BEAKER) (test kfed=3729) CALCIUM, [id number] 07:04:00 Test Item Value Reference Range Comments CALCIUM IONIZED (BEAKER) (test hucu=587) 1.07 mmol/L 1.12-1.27 PH, BLOOD (BEAKER) (test kxhf=1729) 7.49 PROTHROMBIN TIME/[id number] 06:42:00 Test Item Value Reference Range Comments PROTIME (BEAKER) (test sdwl=971) 24.6 seconds 11.7-14.7 INR (BEAKER) (test msgv=006) 2.2 <=5.9 RECOMMENDED COUMADIN/WARFARIN INR THERAPY RANGESSTANDARD DOSE: 2.0 - 3.0 Includes: PROPHYLAXIS forvenous thrombosis, systemic embolization; TREATMENT for venous thrombosis and/or pulmonary embolus.HIGH RISK: Target INR is 2.5-3.5 for patients with mechanical heart valves.CYTOMEGALOVIRUS ANTIBODY, [id number] 14:58:00 Test Item Value Reference Range Comments CYTOMEGALOVIRUS IGG ANTIBODY (BEAKER) (test Positive tlle=869) CYTOMEGALOVIRUS ANTIBODY, [id number] 14:58:00 Test Item Value Reference Range Comments CYTOMEGALOVIRUS IGM ANTIBODY (BEAKER) (test Negative hhzg=729) EBV-VCA ANTIBODY, [id number] 14:58:00 Test Item Value Reference Range Comments MARCELLUS-DAVIS VCA IGG (BEAKER) (test fimw=196) Positive EBV-VCA ANTIBODY, [id number] 14:58:00 Test Item Value Reference Range Comments MARCELLUS-DAVIS VCA IGM (BEAKER) (test bxbb=505) Negative BODY FLUID CELL COUNT WITH [id number] 14:27:00 Test Item Value Reference Range Comments APPEARANCE FLUID (BEAKER) (test uawg=884) Slightly Hazy Clear COLOR FLUID (BEAKER) (test qpzn=577) Yellow Colorless, Straw RBC FLUID (BEAKER) (test ywnz=814) 378 /cu mm <=1 ADJUSTED WBC FLUID (BEAKER) (test qtuk=4942) 84 /cu mm <=5 LINING CELLS (BEAKER) (test zcpd=1686) 17 /cu mm <=1 NEUTROPHILS FLUID (BEAKER) (test esyt=5574) 1 % LYMPHS FLUID (BEAKER) (test ppzg=637) 14 % MONO/MACROPHAGE FLUID (BEAKER) (test 85 % clgp=038) EOSINOPHILS FLUID (BEAKER) (test pcco=320) 0 % BASO FLUID (BEAKER) (test bxsz=087) 0 % CONTAINER BODY FLUID (BEAKER) (test EDTA Tube puhf=4908) U/S, [id number] 11:17:00Reason for exam:->ascitesFINAL REPORT Ultrasound guided paracentesis, 01/01/2018. Clinical History:Ascites. Sedation: None. Loom Starter: Paul Butler MD Home Care Assistant: None. Estimated Blood Loss: < 1 cc. [...] was achieved with 1% lidocaine, a 5 [place] one-step catheter was advanced into the peritoneal cavity under ultrasound guidance. After completion of drainage, the catheter was removed. There was no evidence ofcomplication. Patient Disposition: The patient was transferred to the inpatient unit from the ultrasound department after the paracentesis, in good condition. Impression:Successful ultrasound guided paracentesis. Signed: Paul Butler MDReport Verified Date/Time: 01/01/2018 11:17:26 Reading Location: [facility] [id number] Ultrasound Reading Room CBC W/PLT COUNT & AUTO [id number] 08:55:00 Test Item Value Reference Range Comments WHITE BLOOD CELL COUNT (BEAKER) (test elbe=152) 2.6 K/ L 3.5-10.5 RED BLOOD CELL COUNT (BEAKER) (test popi=480) 2.17 M/ L 4.63-6.08 HEMOGLOBIN (BEAKER) (test zvgw=438) 6.9 GM/DL 13.7-17.5 HEMATOCRIT (BEAKER) (test kvqa=278) 20.6 % 40.1-51.0 MEAN CORPUSCULAR VOLUME (BEAKER) (test fozm=435) 94.9 fL 79.0-92.2 MEAN CORPUSCULAR HEMOGLOBIN (BEAKER) (test 31.8 pg 25.7-32.2 xwrl=969) MEAN CORPUSCULAR HEMOGLOBIN CONC (BEAKER) (test 33.5 GM/DL 32.3-36.5 yhsm=513) RED CELL DISTRIBUTION WIDTH (BEAKER) (test 17.0 % 11.6-14.4 tutp=902) PLATELET COUNT (BEAKER) (test glyg=406) 43 K/CU MM 150-450 MEAN PLATELET VOLUME (BEAKER) (test rrxr=800) 9.3 fL 9.4-12.4 NUCLEATED RED BLOOD CELLS (BEAKER) (test 0 /100 WBC 0-0 ngaa=861) NEUTROPHILS RELATIVE PERCENT (BEAKER) (test 62 % eyje=222) LYMPHOCYTES RELATIVE PERCENT (BEAKER) (test 13 % uhaq=897) MONOCYTES RELATIVE PERCENT (BEAKER) (test 18 % pxuf=223) EOSINOPHILS RELATIVE PERCENT (BEAKER) (test 6 % mhra=469) BASOPHILS RELATIVE PERCENT (BEAKER) (test 0 % eben=060) NEUTROPHILS ABSOLUTE COUNT (BEAKER) (test 1.58 K/ L 1.78-5.38 lmwm=593) LYMPHOCYTES ABSOLUTE COUNT (BEAKER) (test 0.33 K/ L 1.32-3.57 fcbj=702) MONOCYTES ABSOLUTE COUNT (BEAKER) (test pjfl=632) 0.46 K/ L 0.30-0.82 EOSINOPHILS ABSOLUTE COUNT (BEAKER) (test 0.15 K/ L 0.04-0.54 ywfi=054) BASOPHILS ABSOLUTE COUNT (BEAKER) (test oopc=617) 0.01 K/ L 0.01-0.08 IMMATURE GRANULOCYTES-RELATIVE PERCENT (BEAKER) 1 % 0-1 (test mgki=0432) (MANUAL DIFFERENTIAL)2018-01-01 08:55:00 Test Item Value Reference Range Comments TOTAL COUNTED (BEAKER) (test hxdr=8145) CALCIUM, [id number] 07:43:00 Test Item Value Reference Range Comments CALCIUM IONIZED (BEAKER) (test jpcs=281) 1.14 mmol/L 1.12-1.27 PH, BLOOD (BEAKER) (test ftaz=4622) 7.52 [id number] 06:11:00 Test Item Value Reference Range Comments PHOSPHORUS (BEAKER) (test shid=972) 2.5 mg/dL 2.3-4.7 [id number] 06:11:00 Test Item Value Reference Range Comments MAGNESIUM (BEAKER) (test ezyi=679) 1.7 mg/dL 1.6-2.6 COMPREHENSIVE METABOLIC [id number] 06:11:00 Test Item Value Reference Range Comments TOTAL PROTEIN (BEAKER) 5.6 gm/dL 6.0-8.3 (test jwwg=420) ALBUMIN (BEAKER) (test 3.6 g/dL 3.5-5.0 acsf=2150) ALKALINE PHOSPHATASE 68 U/L 40-150 (BEAKER) (test cpgt=565) BILIRUBIN TOTAL (BEAKER) 2.7 mg/dL 0.2-1.2 (test bigo=971) SODIUM (BEAKER) (test 132 meq/L 136-145 oqsn=481) POTASSIUM (BEAKER) (test 4.9 meq/L 3.5-5.1 dvwi=113) CHLORIDE (BEAKER) (test 102 meq/L 98-107 hpix=901) CO2 (BEAKER) (test 24 meq/L 22-29 bbji=461) BLOOD UREA NITROGEN 20 mg/dL 7-21 (BEAKER) (test bfms=353) CREATININE (BEAKER) (test 1.17 mg/dL 0.57-1.25 ktwc=947) GLUCOSE RANDOM (BEAKER) 92 mg/dL 70-105 (test suwo=271) CALCIUM (BEAKER) (test 9.7 mg/dL 8.4-10.2 cftv=549) AST (SGOT) (BEAKER) (test 16 U/L 5-34 xlwv=837) ALT (SGPT) (BEAKER) (test 8 U/L 6-55 aznr=805) EGFR (BEAKER) (test 65 mL/min/1.73 sq m ESTIMATED GFR IS NOT xgmb=3952) ACCURATE CREATININE CLEARANCE IN PREDICTING GLOMERULAR FILTRATION RATE. ESTIMATED GFR IS NOT APPLICABLE FOR DIALYSIS PATIENTS. Specimen slightly ictericPROTHROMBIN TIME/[id number] 06:00:00 Test Item Value Reference Range Comments PROTIME (BEAKER) (test hjpb=926) 24.0 seconds 11.7-14.7 INR (BEAKER) (test rkql=346) 2.2 <=5.9 RECOMMENDED COUMADIN/WARFARIN INR THERAPY RANGESSTANDARD DOSE: 2.0 - 3.0 Includes: PROPHYLAXIS forvenous thrombosis, systemic embolization; TREATMENT for venous thrombosis and/or pulmonary embolus.HIGH RISK: Target INR is 2.5-3.5 for patients with mechanical heart valves.CT, CHEST, WITHOUT [id number] 19:24:00FINAL REPORT HISTORY: Lung nodule, >=1cm COMPARISON [...] MDReport Verified Date/Time: 12/31/2017 19:24:12 Reading Location: [address] Consult Reading Room 07: 24 PMPERIPHERAL BLOOD SMEAR - HOLD [id number] 19:18:00 Test Item Value Reference Range Comments PERIPHERAL SMEAR SAVE (BEAKER) prepared and saved smear, (test oagu=2707) 12/31/17 RETICULOCYTE [id number] 19:14:00 Test Item Value Reference Range Comments RETICULOCYTE COUNT PCT (BEAKER) (test jaai=025) 3.5 % 0.5-1.8 LACTATE DEHYDROGENASE (LDH)2017-12-31 17:47:00 Test Item Value Reference Range Comments LACTATE DEHYDROGENASE (BEAKER) (test ehpq=093) 112 U/L 125-220 BLOOD GAS, [id number] 17:27:00 Test Item Value Reference Range Comments PH ARTERIAL (BEAKER) (test zqzm=275) 7.45 7.35-7.45 PCO2 ARTERIAL (BEAKER) (test flqd=305) 36 mmHg 35-45 PO2 ARTERIAL (BEAKER) (test omyw=379) 76 mmHg 80-90 O2 SATURATION ARTERIAL (BEAKER) (test jhcl=696) 96.1 % 96.0-97.0 HCO3 ARTERIAL (BEAKER) (test klxo=127) 24 mmol/L 21-29 BASE EXCESS ARTERIAL (BEAKER) (test pzkl=072) 0.2 mmol/L -2.0-3.0 PATIENT TEMPERATURE (BEAKER) (test ibaj=7484) 36.4 C FIO2 (BEAKER) (test mjig=7198) 21.0 % MYOCARD IMAGING, MULTI, PHARM, [id number] 15:12:00FINAL REPORT PROCEDURE: Rest/Stress MYOCARDIAL PERFUSION SPECT with regadenoson\\XA9\\ CPT CODE: 03897 INDICATION: Liver transplant evaluation HISTORY: Cardiac risk [...] perfusion defect at rest or with stress(JACC. 2012;59(9):217-95.) Signed: Quinten Napier Verified Date/Time: 12/31/2017 15:12:03 Reading Location: [address] Reading Room BILIRUBIN, [id number] 14:10:00 Test Item Value Reference Range Comments BILIRUBIN DIRECT (BEAKER) (test mxoi=033) 1.6 mg/dL 0.1-0.5 HEMOGLOBIN AND [id number] 13:22:00 Test Item Value Reference Range Comments HEMOGLOBIN (BEAKER) (test hbqk=282) 7.3 GM/DL 13.7-17.5 HEMATOCRIT (BEAKER) (test bhby=284) 21.9 % 40.1-51.0 CBC W/PLT COUNT & AUTO [id number] 11:06:00 Test Item Value Reference Range Comments WHITE BLOOD CELL COUNT (BEAKER) (test mzuz=607) 2.2 K/ L 3.5-10.5 RED BLOOD CELL COUNT (BEAKER) (test bhpu=365) 2.07 M/ L 4.63-6.08 HEMOGLOBIN (BEAKER) (test qnnm=987) 6.8 GM/DL 13.7-17.5 HEMATOCRIT (BEAKER) (test tvzd=765) 19.6 % 40.1-51.0 MEAN CORPUSCULAR VOLUME (BEAKER) (test blup=826) 94.7 fL 79.0-92.2 MEAN CORPUSCULAR HEMOGLOBIN (BEAKER) (test 32.9 pg 25.7-32.2 rphb=978) MEAN CORPUSCULAR HEMOGLOBIN CONC (BEAKER) (test 34.7 GM/DL 32.3-36.5 pazp=286) RED CELL DISTRIBUTION WIDTH (BEAKER) (test 16.9 % 11.6-14.4 qqmj=157) PLATELET COUNT (BEAKER) (test wase=530) 47 K/CU MM 150-450 MEAN PLATELET VOLUME (BEAKER) (test ojjt=204) 9.7 fL 9.4-12.4 NUCLEATED RED BLOOD CELLS (BEAKER) (test 0 /100 WBC 0-0 lvmi=931) NEUTROPHILS RELATIVE PERCENT (BEAKER) (test 54 % hiuh=530) LYMPHOCYTES RELATIVE PERCENT (BEAKER) (test 17 % zwpl=632) MONOCYTES RELATIVE PERCENT (BEAKER) (test 21 % weaa=820) EOSINOPHILS RELATIVE PERCENT (BEAKER) (test 8 % nbdq=611) BASOPHILS RELATIVE PERCENT (BEAKER) (test 1 % mous=501) NEUTROPHILS ABSOLUTE COUNT (BEAKER) (test 1.17 K/ L 1.78-5.38 uuio=238) LYMPHOCYTES ABSOLUTE COUNT (BEAKER) (test 0.36 K/ L 1.32-3.57 mxdl=255) MONOCYTES ABSOLUTE COUNT (BEAKER) (test koge=930) 0.45 K/ L 0.30-0.82 EOSINOPHILS ABSOLUTE COUNT (BEAKER) (test 0.17 K/ L 0.04-0.54 lihw=037) BASOPHILS ABSOLUTE COUNT (BEAKER) (test qhtl=281) 0.01 K/ L 0.01-0.08 IMMATURE GRANULOCYTES-RELATIVE PERCENT (BEAKER) 1 % 0-1 (test atkg=1618) (MANUAL DIFFERENTIAL)2017-12-31 11:06:00 Test Item Value Reference Range Comments TOTAL COUNTED (BEAKER) (test tbyz=9385) [id number] 08:37:00 Test Item Value Reference Range Comments PROTIME (BEAKER) (test fqmw=311) 24.0 seconds 11.7-14.7 INR (BEAKER) (test oduh=973) 2.2 <=5.9 PARTIAL THROMBOPLASTIN TIME (BEAKER) (test 55.2 seconds 22.5-36.0 xiii=622) RECOMMENDED COUMADIN/WARFARIN INR THERAPY RANGESSTANDARD DOSE: 2.0 - 3.0 Includes: PROPHYLAXIS forvenous thrombosis, systemic embolization; TREATMENT for venous thrombosis and/or pulmonary embolus.HIGH RISK: Target INR is 2.5-3.5 for patients with mechanical heart valves.COMPREHENSIVE METABOLIC [id number] 06:37:00 Test Item Value Reference Range Comments TOTAL PROTEIN (BEAKER) 5.7 gm/dL 6.0-8.3 (test zhje=074) ALBUMIN (BEAKER) (test 3.7 g/dL 3.5-5.0 wvet=5140) ALKALINE PHOSPHATASE 70 U/L 40-150 (BEAKER) (test lvmh=569) BILIRUBIN TOTAL (BEAKER) 2.6 mg/dL 0.2-1.2 (test myli=358) SODIUM (BEAKER) (test 130 meq/L 136-145 dehv=458) POTASSIUM (BEAKER) (test 5.2 meq/L 3.5-5.1 smse=773) CHLORIDE (BEAKER) (test 100 meq/L 98-107 uimw=345) CO2 (BEAKER) (test 25 meq/L 22-29 ancx=922) BLOOD UREA NITROGEN 20 mg/dL 7-21 (BEAKER) (test djaz=189) CREATININE (BEAKER) (test 1.08 mg/dL 0.57-1.25 yyxz=407) GLUCOSE RANDOM (BEAKER) 91 mg/dL 70-105 (test lfww=545) CALCIUM (BEAKER) (test 9.6 mg/dL 8.4-10.2 pmrc=702) AST (SGOT) (BEAKER) (test 16 U/L 5-34 efrd=363) ALT (SGPT) (BEAKER) (test 6 U/L 6-55 gmrj=758) EGFR (BEAKER) (test 72 mL/min/1.73 sq m ESTIMATED GFR IS NOT ilef=3638) ACCURATE CREATININE CLEARANCE IN PREDICTING GLOMERULAR FILTRATION RATE. ESTIMATED GFR IS NOT APPLICABLE FOR DIALYSIS PATIENTS. Specimen slightly [id number] 06:01:00 Test Item Value Reference Range Comments RPR SCREEN (BEAKER) (test tnal=285) Nonreactive Nonreactive CRYPTOCOCCAL [id number] 05:59:00 Test Item Value Reference Range Comments CRYPTOCOCCAL ANTIGEN, SERUM (BEAKER) (test Negative Negative, Interference oros=7464) RAD, MANDIBLE, MIN 4 [id number] 01:37:00Reason for exam:->liver transplant evalShould this be [...] Barcenaseport Verified Date/Time: 12/31/2017 01:37:57 Reading Location: [address] Reading Room Electronically signed by: SLICK BARCENAS M.D. on 04/2018 01:37 AMRAD, CHEST, 2 [id number] 23:32:00Reason for exam:-> liver transplant evalShould this [...] Barcenas Verified Date/Time: 12/30/2017 23:32:31 Reading Location: [address] Reading Room HEMOGLOBIN [id number] 22:54:00 Test Item Value Reference Range Comments HEMOGLOBIN A1C (TUNG) (test rxjk=010) 4.1 % 4.3-6.1 HEPATITIS B SURFACE [id number] 16:31:00 Test Item Value Reference Range Comments HEPATITIS B SURFACE ANTIBODY (BEAKER) (test < mIU/mL <8.0 bfdt=852) HEPATITIS B SURFACE [id number] 16:29:00 Test Item Value Reference Range Comments HEPATITIS B SURFACE ANTIGEN (2) (BEAKER) (test Nonreactive Nonreactive dixy=1567) HEPATITIS B CORE ANTIBODY, [id number] 16:29:00 Test Item Value Reference Range Comments HEPATITIS B CORE IGM ANTIBODY (BEAKER) (test Nonreactive Nonreactive lywd=418) HEPATITIS A ANTIBODY, [id number] 16:29:00 Test Item Value Reference Range Comments HEPATITIS A IGM ANTIBODY (BEAKER) (test Nonreactive Nonreactive zezi=948) HEPATITIS B CORE ANTIBODY, [id number] 16:29:00 Test Item Value Reference Range Comments HEPATITIS B CORE TOTAL ANTIBODY (BEAKER) (test Nonreactive Nonreactive jvmk=431) [id number] 16:26:00 Test Item Value Reference Range Comments T4 TOTAL (BEAKER) (test dcaz=037) 3.5 ug/dL 4.9-11.7 [id number] 16:26:00 Test Item Value Reference Range Comments T3 TOTAL (BEAKER) (test ztsi=421) 42 ng/dL 48-159 [id number] 16:24:00 Test Item Value Reference Range Comments FERRITIN (BEAKER) (test ztjw=635) 1460 ng/mL 5-275 VITAMIN D, [id number] 16:24:00 Test Item Value Reference Range Comments VITAMIN D 25-OH (BEAKER) (test cncn=1915) 6.9 ng/mL 6.6-49.9 Effective 08/06/2017: Reference Range ChangeNew: 6.6-49.9 ng/mL Previous: 13.0 -47.8 ng/mLRecommended Vitamin D Target Range: 30.0-40.0 ng/[id number] 16: 24:00 Test Item Value Reference Range Comments THYROID STIMULATING HORMONE (BEAKER) (test 1.55 uIU/mL 0.35-4.94 adyn=873) CARCINOEMBRYONIC ANTIGEN (CEA)2017-12-30 16:24:00 Test Item Value Reference Range Comments CARCINOEMBRYONIC ANTIGEN (BEAKER) (test uhmn=845) 3.0 ng/mL 0.0-5.0 [id number] 16:23:00 Test Item Value Reference Range Comments PROSTATE SPECIFIC ANTIGEN (BEAKER) (test hhwe=452) 0.1 ng/mL 0.0-4.0 HIV-1 ANTIGEN WITH HIV-1/2 [id number] 16:23:00 Test Item Value Reference Range Comments HIV-1 ANTIGEN WITH HIV 1\\T\\2 ANTIBODY (2) Nonreactive Nonreactive (BEAKER) (test xwvd=3223) HEPATITIS C [id number] 16:23:00 Test Item Value Reference Range Comments HEPATITIS C ANTIBODY (BEAKER) (test vrcb=888) Nonreactive Nonreactive LIPID [id number] 16:06:00 Test Item Value Reference Range Comments TRIGLYCERIDES (BEAKER) (test acbv=554) 38 mg/dL CHOLESTEROL (BEAKER) (test uiox=597) 51 mg/dL HDL CHOLESTEROL (BEAKER) (test krgf=245) 10 mg/dL LDL CHOLESTEROL CALCULATED (BEAKER) (test abud=610) 33 mg/dL Triglyceride Reference Range: Low Risk [...] Value Reference Range Comments IRON (BEAKER) (test zjxi=030) 90 ug/dL 40-160 TOTAL IRON BINDING CAPACITY (BEAKER) (test 85 ug/dL 250-450 bfog=565) IRON % SATURATION (2) (BEAKER) (test fkvj=1037) 106 % 20-55 [id number] 16:04:00 Test Item Value Reference Range Comments TRANSFERRIN (BEAKER) (test jfic=391) 65 mg/dL 174-382 Specimen slightly ictericURIC [id number] 16:02:00 Test Item Value Reference Range Comments URIC ACID (BEAKER) (test mbhq=394) 8.5 mg/dL 2.6-7.2 Specimen slightly [id number] 15:50:00 Test Item Value Reference Range Comments FIBRINOGEN LEVEL (BEAKER) (test bbqa=174) 161 mg/dl 225-434 BODY FLUID CULTURE + GRAM [id number] 11:45:00 Test Item Value Reference Range Comments CULTURE (BEAKER) (test mzyv=4213) No growth GRAM STAIN RESULT (BEAKER) (test No WBCs qnyr=8449) GRAM STAIN RESULT (BEAKER) (test No organisms seen eusn=18719) CBC W/PLT COUNT & AUTO [id number] 08:05:00 Test Item Value Reference Range Comments WHITE BLOOD CELL COUNT (BEAKER) (test qail=268) 2.0 K/ L 3.5-10.5 RED BLOOD CELL COUNT (BEAKER) (test dbvf=488) 2.20 M/ L 4.63-6.08 HEMOGLOBIN (BEAKER) (test tyhx=928) 7.1 GM/DL 13.7-17.5 HEMATOCRIT (BEAKER) (test koeh=413) 20.8 % 40.1-51.0 MEAN CORPUSCULAR VOLUME (BEAKER) (test znml=862) 94.5 fL 79.0-92.2 MEAN CORPUSCULAR HEMOGLOBIN (BEAKER) (test 32.3 pg 25.7-32.2 fkjh=224) MEAN CORPUSCULAR HEMOGLOBIN CONC (BEAKER) (test 34.1 GM/DL 32.3-36.5 auff=460) RED CELL DISTRIBUTION WIDTH (BEAKER) (test 17.0 % 11.6-14.4 ubwj=803) PLATELET COUNT (BEAKER) (test uruz=880) 52 K/CU MM 150-450 MEAN PLATELET VOLUME (BEAKER) (test njip=876) 10.7 fL 9.4-12.4 NUCLEATED RED BLOOD CELLS (BEAKER) (test 0 /100 WBC 0-0 iiqe=763) NEUTROPHILS RELATIVE PERCENT (BEAKER) (test 55 % mamd=444) LYMPHOCYTES RELATIVE PERCENT (BEAKER) (test 16 % cslt=420) MONOCYTES RELATIVE PERCENT (BEAKER) (test 20 % wbgl=272) EOSINOPHILS RELATIVE PERCENT (BEAKER) (test 8 % ywjx=623) BASOPHILS RELATIVE PERCENT (BEAKER) (test 1 % btct=356) NEUTROPHILS ABSOLUTE COUNT (BEAKER) (test 1.10 K/ L 1.78-5.38 dkuj=586) LYMPHOCYTES ABSOLUTE COUNT (BEAKER) (test 0.32 K/ L 1.32-3.57 qsfd=813) MONOCYTES ABSOLUTE COUNT (BEAKER) (test gfok=656) 0.40 K/ L 0.30-0.82 EOSINOPHILS ABSOLUTE COUNT (BEAKER) (test 0.16 K/ L 0.04-0.54 ueqh=208) BASOPHILS ABSOLUTE COUNT (BEAKER) (test ppso=129) 0.01 K/ L 0.01-0.08 IMMATURE GRANULOCYTES-RELATIVE PERCENT (BEAKER) 1 % 0-1 (test dcpo=0443) (MANUAL DIFFERENTIAL)2017-12-30 08:05:00 Test Item Value Reference Range Comments TOTAL COUNTED (BEAKER) (test opjf=8092) URINALYSIS W/ [id number] 06:46:00 Test Item Value Reference Range Comments COLOR (BEAKER) (test ills=011) Yellow CLARITY (BEAKER) (test pvbk=726) Clear SPECIFIC GRAVITY UA (BEAKER) (test ozuf=680) 1.008 1.001-1.035 PH UA (BEAKER) (test yspy=704) 6.0 5.0-8.0 PROTEIN UA (BEAKER) (test dede=355) Negative Negative GLUCOSE UA (BEAKER) (test crqf=640) Negative Negative KETONES UA (BEAKER) (test egeg=945) Negative Negative BILIRUBIN UA (BEAKER) (test zvib=237) Negative Negative BLOOD UA (BEAKER) (test aejq=036) Negative Negative NITRITE UA (BEAKER) (test eqnj=518) Negative Negative LEUKOCYTE ESTERASE UA (BEAKER) (test doih=277) Negative Negative UROBILINOGEN UA (BEAKER) (test uxdr=846) 0.2 mg/dL 0.2-1.0 RBC UA (BEAKER) (test lify=818) 0 /HPF WBC UA (BEAKER) (test kzdr=136) 0 /HPF HYALINE CASTS (BEAKER) (test rlbh=155) 5 /LPF SOURCE(BEAKER) (test ofct=4899) Urine, Voided SODIUM, RANDOM [id number] 06:35:00 Test Item Value Reference Range Comments SODIUM URINE (BEAKER) (test ckur=256) < meq/L Reference Range: No NormalsPROTEIN, RANDOM [id number] 06:35:00 Test Item Value Reference Range Comments PROTEIN, URINE (BEAKER) (test xvcu=0810) < mg/dL 0-14 [id number] 06:21:00 Test Item Value Reference Range Comments MAGNESIUM (BEAKER) (test 1.8 mg/dL 1.6-2.6 Specimen slightly hemolyzed olsw=674) [id number] 06:21:00 Test Item Value Reference Range Comments PHOSPHORUS (BEAKER) (test 2.9 mg/dL 2.3-4.7 Specimen slightly hemolyzed qppv=537) COMPREHENSIVE METABOLIC [id number] 06:21:00 Test Item Value Reference Range Comments TOTAL PROTEIN (BEAKER) 5.6 gm/dL 6.0-8.3 Specimen slightly (test rvqe=469) hemolyzed ALBUMIN (BEAKER) (test 3.5 g/dL 3.5-5.0 Specimen slightly kvnn=3243) hemolyzed ALKALINE PHOSPHATASE 75 U/L 40-150 (BEAKER) (test cjzq=247) BILIRUBIN TOTAL (BEAKER) 3.0 mg/dL 0.2-1.2 Specimen slightly (test nwri=488) hemolyzed SODIUM (BEAKER) (test 127 meq/L 136-145 ryez=267) POTASSIUM (BEAKER) (test 5.2 meq/L 3.5-5.1 Specimen slightly ukwd=019) hemolyzed CHLORIDE (BEAKER) (test 97 meq/L 98-107 uuly=821) CO2 (BEAKER) (test 24 meq/L 22-29 wmvg=257) BLOOD UREA NITROGEN 22 mg/dL 7-21 (BEAKER) (test ytkf=692) CREATININE (BEAKER) (test 1.11 mg/dL 0.57-1.25 Specimen slightly fqra=367) hemolyzed GLUCOSE RANDOM (BEAKER) 94 mg/dL 70-105 (test doll=809) CALCIUM (BEAKER) (test 9.4 mg/dL 8.4-10.2 rdmj=944) AST (SGOT) (BEAKER) (test 22 U/L 5-34 Specimen slightly abav=687) hemolyzed ALT (SGPT) (BEAKER) (test 7 U/L 6-55 Specimen slightly nxhq=780) hemolyzed EGFR (BEAKER) (test 70 mL/min/1.73 sq m ESTIMATED GFR IS NOT welq=7562) ACCURATE CREATININE CLEARANCE IN PREDICTING GLOMERULAR FILTRATION RATE. ESTIMATED GFR IS NOT APPLICABLE FOR DIALYSIS PATIENTS. Specimen slightly ictericCREATININE, RANDOM [id number] 06:19:00 Test Item Value Reference Range Comments CREATININE URINE (BEAKER) (test pcfb=232) 60.6 mg/dL Reference Range: No [id number] 13:43:00 Test Item Value Reference Range Comments ETHANOL (BEAKER) (test hxvy=745) < mg/dL <=10 COMPREHENSIVE METABOLIC [id number] 08:23:00 Test Item Value Reference Range Comments TOTAL PROTEIN (BEAKER) 5.5 gm/dL 6.0-8.3 (test kawf=840) ALBUMIN (BEAKER) (test 3.3 g/dL 3.5-5.0 xnrd=3329) ALKALINE PHOSPHATASE 85 U/L 40-150 (BEAKER) (test pcgc=191) BILIRUBIN TOTAL (BEAKER) 3.8 mg/dL 0.2-1.2 (test wbgc=866) SODIUM (BEAKER) (test 125 meq/L 136-145 ymmg=211) POTASSIUM (BEAKER) (test 4.7 meq/L 3.5-5.1 xpzb=940) CHLORIDE (BEAKER) (test 96 meq/L 98-107 plfn=787) CO2 (BEAKER) (test 21 meq/L 22-29 chyx=384) BLOOD UREA NITROGEN 22 mg/dL 7-21 (BEAKER) (test rwiw=926) CREATININE (BEAKER) (test 1.26 mg/dL 0.57-1.25 lrri=586) GLUCOSE RANDOM (BEAKER) 95 mg/dL 70-105 (test jppl=703) CALCIUM (BEAKER) (test 9.1 mg/dL 8.4-10.2 mhrr=471) AST (SGOT) (BEAKER) (test 20 U/L 5-34 qljr=458) ALT (SGPT) (BEAKER) (test 8 U/L 6-55 ceit=536) EGFR (BEAKER) (test 60 mL/min/1.73 sq m ESTIMATED GFR IS NOT gsnr=9422) ACCURATE CREATININE CLEARANCE IN PREDICTING GLOMERULAR FILTRATION RATE. ESTIMATED GFR IS NOT APPLICABLE FOR DIALYSIS PATIENTS. Specimen slightly ictericCBC W/PLT COUNT & AUTO [id number] 07:17 :00 Test Item Value Reference Range Comments WHITE BLOOD CELL COUNT (BEAKER) (test rdom=360) 2.8 K/ L 3.5-10.5 RED BLOOD CELL COUNT (BEAKER) (test qjou=472) 2.28 M/ L 4.63-6.08 HEMOGLOBIN (BEAKER) (test bkjl=363) 7.3 GM/DL 13.7-17.5 HEMATOCRIT (BEAKER) (test lxaz=026) 21.4 % 40.1-51.0 MEAN CORPUSCULAR VOLUME (BEAKER) (test mcsi=529) 93.9 fL 79.0-92.2 MEAN CORPUSCULAR HEMOGLOBIN (BEAKER) (test 32.0 pg 25.7-32.2 sebd=824) MEAN CORPUSCULAR HEMOGLOBIN CONC (BEAKER) (test 34.1 GM/DL 32.3-36.5 zgax=241) RED CELL DISTRIBUTION WIDTH (BEAKER) (test 16.9 % 11.6-14.4 tbjr=555) PLATELET COUNT (BEAKER) (test sunm=626) 52 K/CU MM 150-450 MEAN PLATELET VOLUME (BEAKER) (test bntc=107) 9.8 fL 9.4-12.4 NUCLEATED RED BLOOD CELLS (BEAKER) (test 0 /100 WBC 0-0 wzpp=873) NEUTROPHILS RELATIVE PERCENT (BEAKER) (test 61 % esmi=456) LYMPHOCYTES RELATIVE PERCENT (BEAKER) (test 14 % wtop=278) MONOCYTES RELATIVE PERCENT (BEAKER) (test 18 % qhqs=706) EOSINOPHILS RELATIVE PERCENT (BEAKER) (test 7 % tyuc=156) BASOPHILS RELATIVE PERCENT (BEAKER) (test 0 % seid=407) NEUTROPHILS ABSOLUTE COUNT (BEAKER) (test 1.69 K/ L 1.78-5.38 hdrh=227) LYMPHOCYTES ABSOLUTE COUNT (BEAKER) (test 0.38 K/ L 1.32-3.57 qmpl=630) MONOCYTES ABSOLUTE COUNT (BEAKER) (test piwh=854) 0.51 K/ L 0.30-0.82 EOSINOPHILS ABSOLUTE COUNT (BEAKER) (test 0.18 K/ L 0.04-0.54 ptzs=250) BASOPHILS ABSOLUTE COUNT (BEAKER) (test qvfq=722) 0.01 K/ L 0.01-0.08 IMMATURE GRANULOCYTES-RELATIVE PERCENT (BEAKER) 1 % 0-1 (test elae=7699) CT, [id number] 22:20:00FINAL REPORT EXAM: CT of the abdomen [...] retroperitoneal hematoma.Cirrhosis. Mild hepatomegaly.Cholelithiasis. Signed: Aba Auguste [facility] Verified Date/Time: 12/28/2017 22:20:52 Reading Location: [address] Reading Room CBC W/PLT COUNT & AUTO [id number] 18:06:00 Test Item Value Reference Range Comments WHITE BLOOD CELL COUNT (BEAKER) (test eref=691) 2.9 K/ L 3.5-10.5 RED BLOOD CELL COUNT (BEAKER) (test vhwz=213) 2.03 M/ L 4.63-6.08 HEMOGLOBIN (BEAKER) (test sgrv=115) 6.5 GM/DL 13.7-17.5 HEMATOCRIT (BEAKER) (test bwuo=265) 19.2 % 40.1-51.0 MEAN CORPUSCULAR VOLUME (BEAKER) (test rqzw=231) 94.6 fL 79.0-92.2 MEAN CORPUSCULAR HEMOGLOBIN (BEAKER) (test 32.0 pg 25.7-32.2 yezr=452) MEAN CORPUSCULAR HEMOGLOBIN CONC (BEAKER) (test 33.9 GM/DL 32.3-36.5 rora=773) RED CELL DISTRIBUTION WIDTH (BEAKER) (test 17.6 % 11.6-14.4 cpva=006) PLATELET COUNT (BEAKER) (test uwml=815) 46 K/CU MM 150-450 MEAN PLATELET VOLUME (BEAKER) (test wvdg=760) 9.3 fL 9.4-12.4 NUCLEATED RED BLOOD CELLS (BEAKER) (test 0 /100 WBC 0-0 gxsa=165) NEUTROPHILS RELATIVE PERCENT (BEAKER) (test 66 % wavh=728) LYMPHOCYTES RELATIVE PERCENT (BEAKER) (test 12 % sdhl=748) MONOCYTES RELATIVE PERCENT (BEAKER) (test 15 % iqts=297) EOSINOPHILS RELATIVE PERCENT (BEAKER) (test 6 % dtxu=623) BASOPHILS RELATIVE PERCENT (BEAKER) (test 0 % hzbk=282) NEUTROPHILS ABSOLUTE COUNT (BEAKER) (test 1.92 K/ L 1.78-5.38 ejnm=415) LYMPHOCYTES ABSOLUTE COUNT (BEAKER) (test 0.36 K/ L 1.32-3.57 ogad=097) MONOCYTES ABSOLUTE COUNT (BEAKER) (test ymec=240) 0.44 K/ L 0.30-0.82 EOSINOPHILS ABSOLUTE COUNT (BEAKER) (test 0.16 K/ L 0.04-0.54 pzbc=785) BASOPHILS ABSOLUTE COUNT (BEAKER) (test fkip=741) 0.01 K/ L 0.01-0.08 IMMATURE GRANULOCYTES-RELATIVE PERCENT (BEAKER) 1 % 0-1 (test lzfp=7986) CBC W/PLT COUNT & AUTO [id number] 12:30:00 Test Item Value Reference Range Comments WHITE BLOOD CELL COUNT (BEAKER) (test apca=405) 3.1 K/ L 3.5-10.5 RED BLOOD CELL COUNT (BEAKER) (test jgdy=609) 2.09 M/ L 4.63-6.08 HEMOGLOBIN (BEAKER) (test tcxe=719) 6.8 GM/DL 13.7-17.5 HEMATOCRIT (BEAKER) (test hjee=349) 19.9 % 40.1-51.0 MEAN CORPUSCULAR VOLUME (BEAKER) (test vcue=403) 95.2 fL 79.0-92.2 MEAN CORPUSCULAR HEMOGLOBIN (BEAKER) (test 32.5 pg 25.7-32.2 kaos=540) MEAN CORPUSCULAR HEMOGLOBIN CONC (BEAKER) (test 34.2 GM/DL 32.3-36.5 smsr=649) RED CELL DISTRIBUTION WIDTH (BEAKER) (test 17.5 % 11.6-14.4 oyfz=706) PLATELET COUNT (BEAKER) (test sssz=971) 65 K/CU MM 150-450 MEAN PLATELET VOLUME (BEAKER) (test awpk=567) 10.6 fL 9.4-12.4 NUCLEATED RED BLOOD CELLS (BEAKER) (test 0 /100 WBC 0-0 vjcm=880) NEUTROPHILS RELATIVE PERCENT (BEAKER) (test 60 % efcw=232) LYMPHOCYTES RELATIVE PERCENT (BEAKER) (test 14 % arxd=776) MONOCYTES RELATIVE PERCENT (BEAKER) (test 17 % rung=634) EOSINOPHILS RELATIVE PERCENT (BEAKER) (test 8 % zzqg=079) BASOPHILS RELATIVE PERCENT (BEAKER) (test 0 % gyty=687) NEUTROPHILS ABSOLUTE COUNT (BEAKER) (test 1.85 K/ L 1.78-5.38 flta=882) LYMPHOCYTES ABSOLUTE COUNT (BEAKER) (test 0.42 K/ L 1.32-3.57 uogj=168) MONOCYTES ABSOLUTE COUNT (BEAKER) (test ggta=011) 0.52 K/ L 0.30-0.82 EOSINOPHILS ABSOLUTE COUNT (BEAKER) (test 0.26 K/ L 0.04-0.54 tila=775) BASOPHILS ABSOLUTE COUNT (BEAKER) (test dkxm=318) 0.01 K/ L 0.01-0.08 IMMATURE GRANULOCYTES-RELATIVE PERCENT (BEAKER) 1 % 0-1 (test lioe=9496) U/S, [id number] 06:59:00Limit fluid removal to no more than 5 litersReason for exam:->ascites, concern for sbpShould thisbe performed at the bedside?->NoFINAL REPORT Paracentesis dated 2017 Procedure: Ultrasound-guided paracentesis. Preprocedure diagnosis: Ascites Postprocedure diagnosis: Ascites Conscious sedation: None. Radiologist: Lena Lynn M.D. Home Care Assistant: None Anesthesia: 1% Xylocaine mixed with sodium bicarbonate local anesthesia. Technique: After obtaining informed consent, ultrasound-guided paracentesis was performed under usual sterile technique. Using a 5 lao drainage catheter, puncture was made in the right lower quadrant abdomen. Approximately 5000 cc of serous fluid was removed. Patient tolerated the procedure well without complication. Complication: None Graft/ Implant: None Estimated Blood Loss: NoneImpression: Ultrasound-guided paracentesis. Signed: Lena Lynn MDReport Verified Date/Time: 12/28/2017 06:59 :16 Reading Location: [address] Body Reading Room ALPHA FETOPROTEIN (AFP), TUMOR [id number] 06:22:00 Test Item Value Reference Range Comments ALPHA-FETOPROTEIN (BEAKER) (test oohc=7552) 4.1 ng/mL <10.0 COMPREHENSIVE METABOLIC [id number] 06:00:00 Test Item Value Reference Range Comments TOTAL PROTEIN (BEAKER) 5.3 gm/dL 6.0-8.3 (test puhd=045) ALBUMIN (BEAKER) (test 2.7 g/dL 3.5-5.0 wssu=0676) ALKALINE PHOSPHATASE 94 U/L 40-150 (BEAKER) (test efog=321) BILIRUBIN TOTAL (BEAKER) 3.7 mg/dL 0.2-1.2 (test opct=295) SODIUM (BEAKER) (test 124 meq/L 136-145 xmlo=953) POTASSIUM (BEAKER) (test 4.6 meq/L 3.5-5.1 feff=189) CHLORIDE (BEAKER) (test 96 meq/L 98-107 rtrd=909) CO2 (BEAKER) (test 22 meq/L 22-29 cvxa=839) BLOOD UREA NITROGEN 22 mg/dL 7-21 (BEAKER) (test zlaq=649) CREATININE (BEAKER) (test 1.40 mg/dL 0.57-1.25 awyp=368) GLUCOSE RANDOM (BEAKER) 89 mg/dL 70-105 (test njgc=441) CALCIUM (BEAKER) (test 8.8 mg/dL 8.4-10.2 eeln=674) AST (SGOT) (BEAKER) (test 25 U/L 5-34 jxjo=819) ALT (SGPT) (BEAKER) (test 10 U/L 6-55 bxio=747) EGFR (BEAKER) (test 53 mL/min/1.73 sq m ESTIMATED GFR IS NOT bgct=4447) ACCURATE CREATININE CLEARANCE IN PREDICTING GLOMERULAR FILTRATION RATE. ESTIMATED GFR IS NOT APPLICABLE FOR DIALYSIS PATIENTS. Specimen slightly ictericCBC W/PLT COUNT & AUTO [id number] 05:50 :00 Test Item Value Reference Range Comments WHITE BLOOD CELL COUNT (BEAKER) (test ynax=847) 3.1 K/ L 3.5-10.5 RED BLOOD CELL COUNT (BEAKER) (test bwhu=634) 2.00 M/ L 4.63-6.08 HEMOGLOBIN (BEAKER) (test ayls=776) 6.4 GM/DL 13.7-17.5 HEMATOCRIT (BEAKER) (test nvgv=811) 18.9 % 40.1-51.0 MEAN CORPUSCULAR VOLUME (BEAKER) (test yfod=115) 94.5 fL 79.0-92.2 MEAN CORPUSCULAR HEMOGLOBIN (BEAKER) (test 32.0 pg 25.7-32.2 lvvv=248) MEAN CORPUSCULAR HEMOGLOBIN CONC (BEAKER) (test 33.9 GM/DL 32.3-36.5 kyyb=323) RED CELL DISTRIBUTION WIDTH (BEAKER) (test 17.9 % 11.6-14.4 ikyi=774) PLATELET COUNT (BEAKER) (test vrcs=457) 59 K/CU MM 150-450 MEAN PLATELET VOLUME (BEAKER) (test znyt=816) 10.4 fL 9.4-12.4 NUCLEATED RED BLOOD CELLS (BEAKER) (test 0 /100 WBC 0-0 wodq=573) NEUTROPHILS RELATIVE PERCENT (BEAKER) (test 63 % ctby=443) LYMPHOCYTES RELATIVE PERCENT (BEAKER) (test 14 % eghf=961) MONOCYTES RELATIVE PERCENT (BEAKER) (test 15 % pyaa=424) EOSINOPHILS RELATIVE PERCENT (BEAKER) (test 7 % rkbg=766) BASOPHILS RELATIVE PERCENT (BEAKER) (test 0 % bfyt=726) NEUTROPHILS ABSOLUTE COUNT (BEAKER) (test 1.94 K/ L 1.78-5.38 bmfc=357) LYMPHOCYTES ABSOLUTE COUNT (BEAKER) (test 0.44 K/ L 1.32-3.57 ifpx=559) MONOCYTES ABSOLUTE COUNT (BEAKER) (test nwbj=069) 0.47 K/ L 0.30-0.82 EOSINOPHILS ABSOLUTE COUNT (BEAKER) (test 0.21 K/ L 0.04-0.54 drbj=888) BASOPHILS ABSOLUTE COUNT (BEAKER) (test vblu=994) 0.01 K/ L 0.01-0.08 IMMATURE GRANULOCYTES-RELATIVE PERCENT (BEAKER) 1 % 0-1 (test dghy=1959) BODY FLUID CELL COUNT WITH [id number] 20:39:00 Test Item Value Reference Range Comments APPEARANCE FLUID (BEAKER) (test nwmq=752) Slightly Hazy Clear COLOR FLUID (BEAKER) (test mcic=605) Yellow Colorless, Straw RBC FLUID (BEAKER) (test gnrr=497) 90 /cu mm <=1 ADJUSTED WBC FLUID (BEAKER) (test naeb=5380) 47 /cu mm <=5 LINING CELLS (BEAKER) (test wbuj=7774) 3 /cu mm <=1 NEUTROPHILS FLUID (BEAKER) (test tfjz=8076) 2 % LYMPHS FLUID (BEAKER) (test hexr=634) 19 % MONO/MACROPHAGE FLUID (BEAKER) (test 79 % htxp=845) EOSINOPHILS FLUID (BEAKER) (test dtem=882) 0 % BASO FLUID (BEAKER) (test mkno=751) 0 % CONTAINER BODY FLUID (BEAKER) (test EDTA Tube djrw=9918) ALBUMIN, BODY [id number] 20:14:00 Test Item Value Reference Range Comments ALBUMIN FLUID (BEAKER) (test xikk=261) 0.4 gm/dL Reference Range: No Normals Assay performance has not been validated for this type of specimen.BASIC METABOLIC [id number] 10:31:00 Test Item Value Reference Range Comments SODIUM (BEAKER) (test 125 meq/L 136-145 fymv=985) POTASSIUM (BEAKER) (test 4.5 meq/L 3.5-5.1 ndov=382) CHLORIDE (BEAKER) (test 98 meq/L 98-107 jbny=832) CO2 (BEAKER) (test 20 meq/L 22-29 jvnj=191) BLOOD UREA NITROGEN 22 mg/dL 7-21 (BEAKER) (test hgyj=503) CREATININE (BEAKER) (test 1.45 mg/dL 0.57-1.25 rxri=591) GLUCOSE RANDOM (BEAKER) 87 mg/dL 70-105 (test mbsc=647) CALCIUM (BEAKER) (test 8.6 mg/dL 8.4-10.2 fijh=298) EGFR (BEAKER) (test 51 mL/min/1.73 sq m ESTIMATED GFR IS NOT sigu=1280) ACCURATE CREATININE CLEARANCE IN PREDICTING GLOMERULAR FILTRATION RATE. ESTIMATED GFR IS NOT APPLICABLE FOR DIALYSIS PATIENTS. Specimen slightly ictericHEPATIC FUNCTION [id number] 10:31:00 Test Item Value Reference Range Comments TOTAL PROTEIN (BEAKER) (test bmgz=948) 5.8 gm/dL 6.0-8.3 ALBUMIN (BEAKER) (test jfvl=9282) 2.4 g/dL 3.5-5.0 BILIRUBIN TOTAL (BEAKER) (test tega=658) 4.1 mg/dL 0.2-1.2 BILIRUBIN DIRECT (BEAKER) (test bclr=927) 3.1 mg/dL 0.1-0.5 ALKALINE PHOSPHATASE (BEAKER) (test rbzm=610) 126 U/L 40-150 AST (SGOT) (BEAKER) (test tyyz=512) 28 U/L 5-34 ALT (SGPT) (BEAKER) (test dcyp=110) 13 U/L 6-55 Specimen slightly ictericCBC W/PLT COUNT & AUTO [id number] 10:09 :00 Test Item Value Reference Range Comments WHITE BLOOD CELL COUNT (BEAKER) (test mrkz=038) 5.5 K/ L 3.5-10.5 RED BLOOD CELL COUNT (BEAKER) (test yxrd=807) 2.56 M/ L 4.63-6.08 HEMOGLOBIN (BEAKER) (test ayla=714) 8.1 GM/DL 13.7-17.5 HEMATOCRIT (BEAKER) (test bnxc=841) 24.2 % 40.1-51.0 MEAN CORPUSCULAR VOLUME (BEAKER) (test fmdy=985) 94.5 fL 79.0-92.2 MEAN CORPUSCULAR HEMOGLOBIN (BEAKER) (test 31.6 pg 25.7-32.2 byyl=599) MEAN CORPUSCULAR HEMOGLOBIN CONC (BEAKER) (test 33.5 GM/DL 32.3-36.5 jdef=391) RED CELL DISTRIBUTION WIDTH (BEAKER) (test 18.6 % 11.6-14.4 onlp=446) PLATELET COUNT (BEAKER) (test misj=315) 86 K/CU MM 150-450 MEAN PLATELET VOLUME (BEAKER) (test krfp=475) 9.7 fL 9.4-12.4 NUCLEATED RED BLOOD CELLS (BEAKER) (test 0 /100 WBC 0-0 rqat=797) NEUTROPHILS RELATIVE PERCENT (BEAKER) (test 65 % ikdc=297) LYMPHOCYTES RELATIVE PERCENT (BEAKER) (test 13 % slcg=876) MONOCYTES RELATIVE PERCENT (BEAKER) (test 14 % ohuh=589) EOSINOPHILS RELATIVE PERCENT (BEAKER) (test 6 % ifhu=192) BASOPHILS RELATIVE PERCENT (BEAKER) (test 0 % ypdv=364) NEUTROPHILS ABSOLUTE COUNT (BEAKER) (test 3.59 K/ L 1.78-5.38 rgcv=149) LYMPHOCYTES ABSOLUTE COUNT (BEAKER) (test 0.73 K/ L 1.32-3.57 nriq=398) MONOCYTES ABSOLUTE COUNT (BEAKER) (test iysg=917) 0.76 K/ L 0.30-0.82 EOSINOPHILS ABSOLUTE COUNT (BEAKER) (test 0.33 K/ L 0.04-0.54 ckvn=549) BASOPHILS ABSOLUTE COUNT (BEAKER) (test yxun=429) 0.02 K/ L 0.01-0.08 IMMATURE GRANULOCYTES-RELATIVE PERCENT (BEAKER) 1 % 0-1 (test mywh=8628) PROTHROMBIN TIME/[id number] 07:51:00 Test Item Value Reference Range Comments PROTIME (BEAKER) (test lper=389) 23.8 seconds 11.7-14.7 INR (BEAKER) (test dius=601) 2.1 <=5.9 RECOMMENDED COUMADIN/WARFARIN INR THERAPY RANGESSTANDARD DOSE: 2.0 - 3.0 Includes: PROPHYLAXIS forvenous thrombosis, systemic embolization; TREATMENT for venous thrombosis and/or pulmonary embolus.HIGH RISK: Target INR is 2.5-3.5 for patients with mechanical heart valves.BLOOD [id number] 05:02:00 Test Item Value Reference Range Comments CULTURE (BEAKER) (test uuxd=6089) No growth in 5 days BLOOD [id number] 05:02:00 Test Item Value Reference Range Comments CULTURE (BEAKER) (test fuyq=4795) No growth in 5 days BODY FLUID CULTURE + GRAM [id number] 09:05:00 Test Item Value Reference Range Comments CULTURE (BEAKER) (test veaf=4878) No growth GRAM STAIN RESULT (BEAKER) (test No White blood cells seen taba=9860) GRAM STAIN RESULT (BEAKER) (test No organisms seen nepe=12274) RAPID DRUG SCREEN, [id number] 23:13:00 Test Item Value Reference Range Comments BARBITURATE URINE (BEAKER) (test xlim=184) Negative Negative BENZODIAZEPINE SCREEN URINE (BEAKER) (test Negative Negative axub=215) COCAINE (METAB.) SCREEN (BEAKER) (test yonq=5384) Negative Negative METHADONE SCREEN (BEAKER) (test gzra=4682) Negative Negative OPIATE SCREEN URINE (BEAKER) (test xyzo=738) Negative Negative CANNABINOID SCREEN URINE (BEAKER) (test asnx=868) Negative Negative AMPH/METHAMPH SCREEN (BEAKER) (test nsme=0165) Negative Negative PHENCYCLIDINE SCREEN URINE (BEAKER) (test wjgg=165) Negative Negative OXYCODONE SCREEN URINE (BEAKER) (test dyfl=7425) Negative Negative DRUG CUTOFF CONC.Cocaine 300 ng/mL Cannabinoid 50 ng/mL Benzodiazepine 200 ng/mLBarbiturate 200 ng/ mLPhencyclidine 25 ng/mLOpiate 300 ng/mLMethadone 300 ng/mLAmphetamine/ 1000 ng/mL MethamphetamineOxycodone 300 ng/mLThis assay provides an unconfirmed qualitative test result for the clinical management of patients in emergency situations. Chain of custody not maintained. Some czkb-oji-ifqvnep medications, as well as adulterants, may cause inaccurate results. Clinical correlation should be applied. A more comprehensive drug screen or confirmation of a detected drug may be performed upon request.MR, ABDOMEN, [id number] 13:52:00FINAL REPORT MRI of the abdomen with [...] MDReport Verified Date/Time: 09/05/2017 13:52:35 Reading Location: [address] BodyReading Room CBC W/PLT COUNT & AUTO [id number] 05:46:00 Test Item Value Reference Range Comments WHITE BLOOD CELL COUNT (BEAKER) (test yxuy=657) 4.7 K/ L 3.5-10.5 RED BLOOD CELL COUNT (BEAKER) (test kjzz=646) 2.49 M/ L 4.63-6.08 HEMOGLOBIN (BEAKER) (test tdiz=784) 7.9 GM/DL 13.7-17.5 HEMATOCRIT (BEAKER) (test birt=649) 22.6 % 40.1-51.0 MEAN CORPUSCULAR VOLUME (BEAKER) (test pduz=673) 90.8 fL 79.0-92.2 MEAN CORPUSCULAR HEMOGLOBIN (BEAKER) (test 31.7 pg 25.7-32.2 nyrj=178) MEAN CORPUSCULAR HEMOGLOBIN CONC (BEAKER) (test 35.0 GM/DL 32.3-36.5 trvb=133) RED CELL DISTRIBUTION WIDTH (BEAKER) (test 18.8 % 11.6-14.4 fgef=057) PLATELET COUNT (BEAKER) (test zqpt=403) 60 K/CU MM 150-450 MEAN PLATELET VOLUME (BEAKER) (test jhzo=554) 9.2 fL 9.4-12.4 NUCLEATED RED BLOOD CELLS (BEAKER) (test 0 /100 WBC 0-0 bxwu=499) NEUTROPHILS RELATIVE PERCENT (BEAKER) (test 65 % dkkm=133) LYMPHOCYTES RELATIVE PERCENT (BEAKER) (test 13 % tdak=728) MONOCYTES RELATIVE PERCENT (BEAKER) (test 15 % mtkj=521) EOSINOPHILS RELATIVE PERCENT (BEAKER) (test 6 % vtmf=093) BASOPHILS RELATIVE PERCENT (BEAKER) (test 0 % ihfa=313) NEUTROPHILS ABSOLUTE COUNT (BEAKER) (test 3.05 K/ L 1.78-5.38 toob=574) LYMPHOCYTES ABSOLUTE COUNT (BEAKER) (test 0.62 K/ L 1.32-3.57 ginf=633) MONOCYTES ABSOLUTE COUNT (BEAKER) (test gaaz=635) 0.68 K/ L 0.30-0.82 EOSINOPHILS ABSOLUTE COUNT (BEAKER) (test 0.28 K/ L 0.04-0.54 wcvd=693) BASOPHILS ABSOLUTE COUNT (BEAKER) (test zipv=085) 0.02 K/ L 0.01-0.08 IMMATURE GRANULOCYTES-RELATIVE PERCENT (BEAKER) 1 % 0-1 (test fuhm=8368) BASIC METABOLIC [id number] 05:44:00 Test Item Value Reference Range Comments SODIUM (BEAKER) (test 127 meq/L 136-145 cvly=310) POTASSIUM (BEAKER) (test 4.5 meq/L 3.5-5.1 jymp=179) CHLORIDE (BEAKER) (test 101 meq/L 98-107 qfkt=192) CO2 (BEAKER) (test 19 meq/L 22-29 moya=915) BLOOD UREA NITROGEN 17 mg/dL 7-21 (BEAKER) (test bdno=425) CREATININE (BEAKER) (test 0.91 mg/dL 0.57-1.25 podf=934) GLUCOSE RANDOM (BEAKER) 107 mg/dL 70-105 (test aqfg=646) CALCIUM (BEAKER) (test 9.4 mg/dL 8.4-10.2 gloi=882) EGFR (BEAKER) (test 87 mL/min/1.73 sq m ESTIMATED GFR IS NOT ahhm=2065) ACCURATE CREATININE CLEARANCE IN PREDICTING GLOMERULAR FILTRATION RATE. ESTIMATED GFR IS NOT APPLICABLE FOR DIALYSIS PATIENTS. Specimen moderately ictericHEPATIC FUNCTION [id number] 05:44:00 Test Item Value Reference Range Comments TOTAL PROTEIN (BEAKER) (test wifs=222) 5.6 gm/dL 6.0-8.3 ALBUMIN (BEAKER) (test ofaw=8907) 3.3 g/dL 3.5-5.0 BILIRUBIN TOTAL (BEAKER) (test safo=077) 10.3 mg/dL 0.2-1.2 BILIRUBIN DIRECT (BEAKER) (test akgn=461) 6.8 mg/dL 0.1-0.5 ALKALINE PHOSPHATASE (BEAKER) (test hzkm=285) 103 U/L 40-150 AST (SGOT) (BEAKER) (test zmui=622) 17 U/L 5-34 ALT (SGPT) (BEAKER) (test uulp=611) 8 U/L 6-55 Specimen moderately ictericPT/[id number] 05:31:00 Test Item Value Reference Range Comments PROTIME (BEAKER) (test vyex=517) 25.6 seconds 11.7-14.7 INR (BEAKER) (test xzst=842) 2.3 <=5.9 PARTIAL THROMBOPLASTIN TIME (BEAKER) (test 51.6 seconds 22.5-36.0 fjis=728) RECOMMENDED COUMADIN/WARFARIN INR THERAPY RANGESSTANDARD DOSE: 2.0 - 3.0 Includes: PROPHYLAXIS forvenous thrombosis, systemic embolization; TREATMENT for venous thrombosis and/or pulmonary embolus.HIGH RISK: Target INR is 2.5-3.5 for patients with mechanical heart valves.PROTHROMBIN TIME/[id number] 05:30: 00 Test Item Value Reference Range Comments PROTIME (BEAKER) (test eemz=989) 25.6 seconds 11.7-14.7 INR (BEAKER) (test fprc=458) 2.3 <=5.9 RECOMMENDED COUMADIN/WARFARIN INR THERAPY RANGESSTANDARD DOSE: 2.0 - 3.0 Includes: PROPHYLAXIS forvenous thrombosis, systemic embolization; TREATMENT for venous thrombosis and/or pulmonary embolus.HIGH RISK: Target INR is 2.5-3.5 for patients with mechanical heart valves.BODY FLUID CELL COUNT WITH [id number] 19:30:00 Test Item Value Reference Range Comments APPEARANCE FLUID (BEAKER) (test iygz=554) Slightly Hazy Clear COLOR FLUID (BEAKER) (test tjel=638) Yellow Colorless, Straw RBC FLUID (BEAKER) (test cbxw=297) 100 /cu mm <=1 ADJUSTED WBC FLUID (BEAKER) (test wsoy=5029) 36 /cu mm <=5 LINING CELLS (BEAKER) (test ixzu=3606) 4 /cu mm <=1 NEUTROPHILS FLUID (BEAKER) (test ahpf=5037) 0 % LYMPHS FLUID (BEAKER) (test tdnh=787) 20 % MONO/MACROPHAGE FLUID (BEAKER) (test 80 % eufq=092) EOSINOPHILS FLUID (BEAKER) (test xiez=414) 0 % BASO FLUID (BEAKER) (test txps=838) 0 % CONTAINER BODY FLUID (BEAKER) (test EDTA Tube wpni=6558) U/S, [id number] 16:21:00Reason for exam:->ascitesShould this be performed at the bedside?->NoFINAL REPORT PROCEDURE: Ultrasound-guided paracentesis. INDICATION: 52-year-old man with ascites. DESCRIPTION: After obtaining informed written consent, ultrasound scan of the abdomen identified ascites in the right lower quadrant. The overlying skin was prepped and draped in the usual, sterile fashion and local 1% lidocaine anesthesia was administered. A 5 [place] catheter was advanced into the peritoneal cavity and 13,200 cc of cloudy yellow fluid was removed. The catheter was removed without immediate complication. Samples were sent for analysis. IMPRESSION:Uncomplicated ultrasound-guided paracentesis with 13,200 cc fluid removed. Signed: Candice Mckeon MDReport Verified Date/Time: 2016 16:21:22 Reading Location: [address] Ultrasound Reading Room [facility] METABOLIC [id number] 11:07:00 Test Item Value Reference Range Comments SODIUM (BEAKER) (test 127 meq/L 136-145 kzll=894) POTASSIUM (BEAKER) (test 4.1 meq/L 3.5-5.1 lqku=115) CHLORIDE (BEAKER) (test 101 meq/L 98-107 lsxh=473) CO2 (BEAKER) (test 23 meq/L 22-29 vwlo=801) BLOOD UREA NITROGEN 17 mg/dL 7-21 (BEAKER) (test ibns=111) CREATININE (BEAKER) (test 1.06 mg/dL 0.57-1.25 ziec=476) GLUCOSE RANDOM (BEAKER) 104 mg/dL 70-105 (test odxw=957) CALCIUM (BEAKER) (test 8.9 mg/dL 8.4-10.2 ertf=687) EGFR (BEAKER) (test 73 mL/min/1.73 sq m ESTIMATED GFR IS NOT rwut=9995) ACCURATE CREATININE CLEARANCE IN PREDICTING GLOMERULAR FILTRATION RATE. ESTIMATED GFR IS NOT APPLICABLE FOR DIALYSIS PATIENTS. Specimen markedly ictericHEPATIC FUNCTION [id number] 11:07:00 Test Item Value Reference Range Comments TOTAL PROTEIN (BEAKER) (test lyfx=687) 5.4 gm/dL 6.0-8.3 ALBUMIN (BEAKER) (test bmlj=9793) 2.8 g/dL 3.5-5.0 BILIRUBIN TOTAL (BEAKER) (test tvce=396) 12.7 mg/dL 0.2-1.2 BILIRUBIN DIRECT (BEAKER) (test cryh=011) 7.8 mg/dL 0.1-0.5 ALKALINE PHOSPHATASE (BEAKER) (test yurx=767) 90 U/L 40-150 AST (SGOT) (BEAKER) (test owij=318) 22 U/L 5-34 ALT (SGPT) (BEAKER) (test aucu=468) 11 U/L 6-55 Specimen markedly ictericPT/[id number] 11:02:00 Test Item Value Reference Range Comments PROTIME (BEAKER) (test afjk=500) 23.4 seconds 11.7-14.7 INR (BEAKER) (test bajp=062) 2.1 <=5.9 PARTIAL THROMBOPLASTIN TIME (BEAKER) (test 48.7 seconds 22.5-36.0 mhzs=610) RECOMMENDED COUMADIN/WARFARIN INR THERAPY RANGESSTANDARD DOSE: 2.0 - 3.0 Includes: PROPHYLAXIS forvenous thrombosis, systemic embolization; TREATMENT for venous thrombosis and/or pulmonary embolus.HIGH RISK: Target INR is 2.5-3.5 for patients with mechanical heart valves.PROTHROMBIN TIME/[id number] 11:01: 00 Test Item Value Reference Range Comments PROTIME (BEAKER) (test thhz=978) 23.4 seconds 11.7-14.7 INR (BEAKER) (test zqnz=804) 2.1 <=5.9 RECOMMENDED COUMADIN/WARFARIN INR THERAPY RANGESSTANDARD DOSE: 2.0 - 3.0 Includes: PROPHYLAXIS forvenous thrombosis, systemic embolization; TREATMENT for venous thrombosis and/or pulmonary embolus.HIGH RISK: Target INR is 2.5-3.5 for patients with mechanical heart valves.CBC W/PLT COUNT & AUTO [id number] 10:56:00 Test Item Value Reference Range Comments WHITE BLOOD CELL COUNT (BEAKER) (test ranw=112) 4.4 K/ L 3.5-10.5 RED BLOOD CELL COUNT (BEAKER) (test qoow=147) 2.48 M/ L 4.63-6.08 HEMOGLOBIN (BEAKER) (test ccen=707) 7.8 GM/DL 13.7-17.5 HEMATOCRIT (BEAKER) (test dtvl=790) 22.7 % 40.1-51.0 MEAN CORPUSCULAR VOLUME (BEAKER) (test uhuw=966) 91.5 fL 79.0-92.2 MEAN CORPUSCULAR HEMOGLOBIN (BEAKER) (test 31.5 pg 25.7-32.2 opqp=264) MEAN CORPUSCULAR HEMOGLOBIN CONC (BEAKER) (test 34.4 GM/DL 32.3-36.5 wida=696) RED CELL DISTRIBUTION WIDTH (BEAKER) (test 18.6 % 11.6-14.4 gzsy=428) PLATELET COUNT (BEAKER) (test lmdn=818) 60 K/CU MM 150-450 MEAN PLATELET VOLUME (BEAKER) (test wris=804) 8.8 fL 9.4-12.4 NUCLEATED RED BLOOD CELLS (BEAKER) (test 0 /100 WBC 0-0 nzna=141) NEUTROPHILS RELATIVE PERCENT (BEAKER) (test 61 % lman=200) LYMPHOCYTES RELATIVE PERCENT (BEAKER) (test 9 % cqcp=330) MONOCYTES RELATIVE PERCENT (BEAKER) (test 21 % hvsy=962) EOSINOPHILS RELATIVE PERCENT (BEAKER) (test 8 % bwes=153) BASOPHILS RELATIVE PERCENT (BEAKER) (test 1 % lcmk=084) NEUTROPHILS ABSOLUTE COUNT (BEAKER) (test 2.68 K/ L 1.78-5.38 shtg=088) LYMPHOCYTES ABSOLUTE COUNT (BEAKER) (test 0.38 K/ L 1.32-3.57 qarj=571) MONOCYTES ABSOLUTE COUNT (BEAKER) (test eocq=194) 0.94 K/ L 0.30-0.82 EOSINOPHILS ABSOLUTE COUNT (BEAKER) (test 0.33 K/ L 0.04-0.54 ddgh=306) BASOPHILS ABSOLUTE COUNT (BEAKER) (test widi=107) 0.02 K/ L 0.01-0.08 IMMATURE GRANULOCYTES-RELATIVE PERCENT (BEAKER) 1 % 0-1 (test cepm=5520) URINALYSIS W/ [id number] 06:18:00 Test Item Value Reference Range Comments COLOR (BEAKER) (test slqp=512) Dark Yellow CLARITY (BEAKER) (test nnlw=087) Clear SPECIFIC GRAVITY UA (BEAKER) (test snaf=259) 1.008 1.001-1.035 PH UA (BEAKER) (test uwlu=871) 6.0 5.0-8.0 PROTEIN UA (BEAKER) (test dybb=871) Negative Negative GLUCOSE UA (BEAKER) (test jvwi=676) Negative Negative KETONES UA (BEAKER) (test qtfc=297) Negative Negative BILIRUBIN UA (BEAKER) (test qxam=005) Positive Negative BLOOD UA (BEAKER) (test efrh=796) Moderate Negative NITRITE UA (BEAKER) (test aequ=881) Negative Negative LEUKOCYTE ESTERASE UA (BEAKER) (test nlto=735) Negative Negative UROBILINOGEN UA (BEAKER) (test wsvj=343) 0.2 mg/dL 0.2-1.0 RBC UA (BEAKER) (test lroi=706) 80 /HPF WBC UA (BEAKER) (test dlyv=732) 10 /HPF HYALINE CASTS (BEAKER) (test crvh=727) 5 /LPF AMORPHOUS CRYSTALS (BEAKER) (test icus=7824) Rare SOURCE(BEAKER) (test tzxh=8095) CBC W/PLT COUNT & AUTO [id number] 00:00:00 Test Item Value Reference Range Comments WHITE BLOOD CELL COUNT (BEAKER) (test wztr=822) 3.7 K/ L 3.5-10.5 RED BLOOD CELL COUNT (BEAKER) (test byyi=062) 2.20 M/ L 4.63-6.08 HEMOGLOBIN (BEAKER) (test zhwg=622) 7.0 GM/DL 13.7-17.5 HEMATOCRIT (BEAKER) (test zlst=849) 20.2 % 40.1-51.0 MEAN CORPUSCULAR VOLUME (BEAKER) (test ewkb=566) 91.8 fL 79.0-92.2 MEAN CORPUSCULAR HEMOGLOBIN (BEAKER) (test 31.8 pg 25.7-32.2 urhv=234) MEAN CORPUSCULAR HEMOGLOBIN CONC (BEAKER) (test 34.7 GM/DL 32.3-36.5 jimh=818) RED CELL DISTRIBUTION WIDTH (BEAKER) (test 19.3 % 11.6-14.4 tjja=880) PLATELET COUNT (BEAKER) (test utlx=627) 63 K/CU MM 150-450 MEAN PLATELET VOLUME (BEAKER) (test ynsa=327) 9.1 fL 9.4-12.4 NUCLEATED RED BLOOD CELLS (BEAKER) (test 0 /100 WBC 0-0 smuu=854) NEUTROPHILS RELATIVE PERCENT (BEAKER) (test 62 % hugj=184) LYMPHOCYTES RELATIVE PERCENT (BEAKER) (test 11 % lodt=745) MONOCYTES RELATIVE PERCENT (BEAKER) (test 19 % iyeb=721) EOSINOPHILS RELATIVE PERCENT (BEAKER) (test 7 % lnfa=852) BASOPHILS RELATIVE PERCENT (BEAKER) (test 1 % zijx=370) NEUTROPHILS ABSOLUTE COUNT (BEAKER) (test 2.29 K/ L 1.78-5.38 eetk=326) LYMPHOCYTES ABSOLUTE COUNT (BEAKER) (test 0.39 K/ L 1.32-3.57 hxhc=163) MONOCYTES ABSOLUTE COUNT (BEAKER) (test ggnv=051) 0.71 K/ L 0.30-0.82 EOSINOPHILS ABSOLUTE COUNT (BEAKER) (test 0.27 K/ L 0.04-0.54 nguc=473) BASOPHILS ABSOLUTE COUNT (BEAKER) (test revw=917) 0.02 K/ L 0.01-0.08 IMMATURE GRANULOCYTES-RELATIVE PERCENT (BEAKER) 1 % 0-1 (test ekku=9128) PROTHROMBIN [id number] 22:52:00 Test Item Value Reference Range Comments PROTIME (BEAKER) (test ebpk=385) 25.6 seconds 11.7-14.7 INR (BEAKER) (test clqw=588) 2.3 <=5.9 RECOMMENDED COUMADIN/WARFARIN INR THERAPY RANGESSTANDARD DOSE: 2.0 - 3.0 Includes: PROPHYLAXIS forvenous thrombosis, systemic embolization; TREATMENT for venous thrombosis and/or pulmonary embolus.HIGH RISK: Target INR is 2.5-3.5 for patients with mechanical heart valves.[id number] 22:52:00 Test Item Value Reference Range Comments MAGNESIUM (BEAKER) (test zkfz=425) 1.3 mg/dL 1.6-2.6 BASIC METABOLIC [id number] 22:52:00 Test Item Value Reference Range Comments SODIUM (BEAKER) (test 124 meq/L 136-145 pegr=125) POTASSIUM (BEAKER) (test 4.1 meq/L 3.5-5.1 jrrq=973) CHLORIDE (BEAKER) (test 99 meq/L 98-107 gald=383) CO2 (BEAKER) (test 18 meq/L 22-29 dkrg=903) BLOOD UREA NITROGEN 16 mg/dL 7-21 (BEAKER) (test gqik=770) CREATININE (BEAKER) (test 0.97 mg/dL 0.57-1.25 wtsk=506) GLUCOSE RANDOM (BEAKER) 99 mg/dL 70-105 (test weds=023) CALCIUM (BEAKER) (test 8.7 mg/dL 8.4-10.2 uskk=610) EGFR (BEAKER) (test 81 mL/min/1.73 sq m ESTIMATED GFR IS NOT aycv=5051) ACCURATE CREATININE CLEARANCE IN PREDICTING GLOMERULAR FILTRATION RATE. ESTIMATED GFR IS NOT APPLICABLE FOR DIALYSIS PATIENTS. Specimen markedly ictericHEPATIC FUNCTION [id number] 22:52:00 Test Item Value Reference Range Comments TOTAL PROTEIN (BEAKER) (test tjej=434) 5.3 gm/dL 6.0-8.3 ALBUMIN (BEAKER) (test xotk=5128) 2.8 g/dL 3.5-5.0 BILIRUBIN TOTAL (BEAKER) (test bfhm=838) 12.7 mg/dL 0.2-1.2 BILIRUBIN DIRECT (BEAKER) (test sflf=671) 7.6 mg/dL 0.1-0.5 ALKALINE PHOSPHATASE (BEAKER) (test kfct=235) 93 U/L 40-150 AST (SGOT) (BEAKER) (test xyvv=669) 21 U/L 5-34 ALT (SGPT) (BEAKER) (test yayq=173) 9 U/L 6-55 Specimen markedly ictericALPHA FETOPROTEIN (AFP), TUMOR [id number] 16:39: 00 Test Item Value Reference Range Comments ALPHA-FETOPROTEIN (BEAKER) (test dtkx=3849) 2.5 ng/mL <10.0 BASIC METABOLIC [id number] 15:53:00 Test Item Value Reference Range Comments SODIUM (BEAKER) (test 126 meq/L 136-145 srtl=132) POTASSIUM (BEAKER) (test 5.1 meq/L 3.5-5.1 qpzp=201) CHLORIDE (BEAKER) (test 101 meq/L 98-107 ttdq=565) CO2 (BEAKER) (test 19 meq/L 22-29 njoj=309) BLOOD UREA NITROGEN 14 mg/dL 7-21 (BEAKER) (test gauz=128) CREATININE (BEAKER) (test 1.01 mg/dL 0.57-1.25 zgtc=179) GLUCOSE RANDOM (BEAKER) 104 mg/dL 70-105 (test ohsw=057) CALCIUM (BEAKER) (test 9.0 mg/dL 8.4-10.2 rbas=704) EGFR (BEAKER) (test 78 mL/min/1.73 sq m ESTIMATED GFR IS NOT bmrl=7365) ACCURATE CREATININE CLEARANCE IN PREDICTING GLOMERULAR FILTRATION RATE. ESTIMATED GFR IS NOT APPLICABLE FOR DIALYSIS PATIENTS. Specimen moderately ictericHEPATIC FUNCTION [id number] 15:53:00 Test Item Value Reference Range Comments TOTAL PROTEIN (BEAKER) (test jkxs=219) 6.1 gm/dL 6.0-8.3 ALBUMIN (BEAKER) (test wokb=9480) 2.6 g/dL 3.5-5.0 BILIRUBIN TOTAL (BEAKER) (test ucph=369) 10.4 mg/dL 0.2-1.2 BILIRUBIN DIRECT (BEAKER) (test qbvy=197) 7.5 mg/dL 0.1-0.5 ALKALINE PHOSPHATASE (BEAKER) (test ohts=875) 124 U/L 40-150 AST (SGOT) (BEAKER) (test nhuh=379) 29 U/L 5-34 ALT (SGPT) (BEAKER) (test xrte=699) 12 U/L 6-55 Specimen moderately ictericGAMMA GLUTAMYL TRANSFERASE (GGT)[id number] 15:53:00 Test Item Value Reference Range Comments GAMMA GLUTAMYL TRANSFERASE (BEAKER) (test pdua=693) 17 U/L 9-64 Specimen moderately ictericPROTHROMBIN [id number] 15:40:00 Test Item Value Reference Range Comments PROTIME (BEAKER) (test oswh=986) 22.6 seconds 11.7-14.7 INR (BEAKER) (test wmfm=646) 2.0 <=5.9 RECOMMENDED COUMADIN/WARFARIN INR THERAPY RANGESSTANDARD DOSE: 2.0 - 3.0 Includes: PROPHYLAXIS forvenous thrombosis, systemic embolization; TREATMENT for venous thrombosis and/or pulmonary embolus.HIGH RISK: Target INR is 2.5-3.5 for patients with mechanical heart valves.CBC W/PLT COUNT & AUTO [id number] 15:38:00 Test Item Value Reference Range Comments WHITE BLOOD CELL COUNT (BEAKER) (test kgmm=742) 7.3 K/ L 3.5-10.5 RED BLOOD CELL COUNT (BEAKER) (test pqav=575) 2.78 M/ L 4.63-6.08 HEMOGLOBIN (BEAKER) (test vixn=344) 9.1 GM/DL 13.7-17.5 HEMATOCRIT (BEAKER) (test egjz=173) 27.3 % 40.1-51.0 MEAN CORPUSCULAR VOLUME (BEAKER) (test xgov=664) 98.2 fL 79.0-92.2 MEAN CORPUSCULAR HEMOGLOBIN (BEAKER) (test 32.7 pg 25.7-32.2 zyrl=420) MEAN CORPUSCULAR HEMOGLOBIN CONC (BEAKER) (test 33.3 GM/DL 32.3-36.5 lbdv=979) RED CELL DISTRIBUTION WIDTH (BEAKER) (test 16.4 % 11.6-14.4 pwns=756) PLATELET COUNT (BEAKER) (test ptfq=056) 71 K/CU MM 150-450 MEAN PLATELET VOLUME (BEAKER) (test quxm=225) 9.1 fL 9.4-12.4 NUCLEATED RED BLOOD CELLS (BEAKER) (test 0 /100 WBC 0-0 bkwp=880) NEUTROPHILS RELATIVE PERCENT (BEAKER) (test 71 % pcyr=290) LYMPHOCYTES RELATIVE PERCENT (BEAKER) (test 8 % fqnm=697) MONOCYTES RELATIVE PERCENT (BEAKER) (test 15 % myru=584) EOSINOPHILS RELATIVE PERCENT (BEAKER) (test 5 % xxmx=768) BASOPHILS RELATIVE PERCENT (BEAKER) (test 0 % yacv=625) NEUTROPHILS ABSOLUTE COUNT (BEAKER) (test 5.13 K/ L 1.78-5.38 wthd=169) LYMPHOCYTES ABSOLUTE COUNT (BEAKER) (test 0.59 K/ L 1.32-3.57 mohs=409) MONOCYTES ABSOLUTE COUNT (BEAKER) (test fkbf=099) 1.06 K/ L 0.30-0.82 EOSINOPHILS ABSOLUTE COUNT (BEAKER) (test 0.33 K/ L 0.04-0.54 oubx=722) BASOPHILS ABSOLUTE COUNT (BEAKER) (test vgcm=379) 0.03 K/ L 0.01-0.08 IMMATURE GRANULOCYTES-RELATIVE PERCENT (BEAKER) 2 % 0-1 (test hdqd=0968) FUNGUS CULTURE + [id number] 07:22:00 Test Item Value Reference Range Comments CULTURE (BEAKER) (test No fungus isolated in 28 days jfic=8045) FUNGUS SMEAR (BEAKER) (test No fungi seen obhf=2506) HISTOPLASMA ANTIGEN, [id number] 08:01:00 Test Item Value Reference Range Comments SCAN RESULT (test [id number]=[id number]) TISSUE [id number] 10:58:00 Test Item Value Reference Range Comments LAB AP CPT CODE (BEAKER) (test vlsi=0320) [id number] BLOOD [id number] 16:15:00 Test Item Value Reference Range Comments CULTURE (BEAKER) (test ugzm=8742) No growth in 5 days BLOOD [id number] 16:15:00 Test Item Value Reference Range Comments CULTURE (BEAKER) (test wccn=2682) No growth in 5 days [id number] 06:54:00 Test Item Value Reference Range Comments PHOSPHORUS (BEAKER) (test sccp=779) 3.3 mg/dL 2.3-4.7 [id number] 06:54:00 Test Item Value Reference Range Comments MAGNESIUM (BEAKER) (test aday=922) 1.2 mg/dL 1.6-2.6 BASIC METABOLIC [id number] 06:54:00 Test Item Value Reference Range Comments SODIUM (BEAKER) (test 133 meq/L 136-145 rwvr=191) POTASSIUM (BEAKER) (test 3.6 meq/L 3.5-5.1 wsad=466) CHLORIDE (BEAKER) (test 108 meq/L 98-107 ospn=980) CO2 (BEAKER) (test 17 meq/L 22-29 dvph=075) BLOOD UREA NITROGEN 13 mg/dL 7-21 (BEAKER) (test ogex=822) CREATININE (BEAKER) (test 1.16 mg/dL 0.57-1.25 awyi=306) GLUCOSE RANDOM (BEAKER) 82 mg/dL 70-105 (test arht=497) CALCIUM (BEAKER) (test 8.0 mg/dL 8.4-10.2 wkgt=188) EGFR (BEAKER) (test 66 mL/min/1.73 sq m ESTIMATED GFR IS NOT myjn=4602) ACCURATE CREATININE CLEARANCE IN PREDICTING GLOMERULAR FILTRATION RATE. ESTIMATED GFR IS NOT APPLICABLE FOR DIALYSIS PATIENTS. Specimen moderately ictericHEPATIC FUNCTION [id number] 06:54:00 Test Item Value Reference Range Comments TOTAL PROTEIN (BEAKER) (test kmff=685) 5.7 gm/dL 6.0-8.3 ALBUMIN (BEAKER) (test drun=0646) 3.1 g/dL 3.5-5.0 BILIRUBIN TOTAL (BEAKER) (test eiui=144) 5.2 mg/dL 0.2-1.2 BILIRUBIN DIRECT (BEAKER) (test zdvo=901) 2.6 mg/dL 0.1-0.5 ALKALINE PHOSPHATASE (BEAKER) (test tgpb=998) 55 U/L 40-150 AST (SGOT) (BEAKER) (test nnfg=664) 32 U/L 5-34 ALT (SGPT) (BEAKER) (test ziyr=159) 9 U/L 6-55 Specimen moderately ictericCALCIUM, [id number] 06:30:00 Test Item Value Reference Range Comments CALCIUM IONIZED (BEAKER) (test ggeo=367) 1.00 mmol/L 1.12-1.27 PH, BLOOD (BEAKER) (test rdur=2342) 7.52 CBC W/PLT COUNT & AUTO [id number] 06:17:00 Test Item Value Reference Range Comments WHITE BLOOD CELL COUNT (BEAKER) (test umir=187) 4.7 K/ L 4.0-10.0 RED BLOOD CELL COUNT (BEAKER) (test efrs=911) 2.05 M/ L 4.20-5.80 HEMOGLOBIN (BEAKER) (test ggda=668) 7.1 GM/DL 13.0-16.8 HEMATOCRIT (BEAKER) (test krrc=562) 21.1 % 40.0-50.0 MEAN CORPUSCULAR VOLUME (BEAKER) (test yukm=042) 103.0 fL 82.0-98.0 MEAN CORPUSCULAR HEMOGLOBIN (BEAKER) (test 34.8 pg 27.0-33.0 enqw=949) MEAN CORPUSCULAR HEMOGLOBIN CONC (BEAKER) (test 33.8 GM/DL 32.0-36.0 xnna=432) RED CELL DISTRIBUTION WIDTH (BEAKER) (test 13.9 % 10.3-14.2 yhjl=898) PLATELET COUNT (BEAKER) (test scmz=734) 71 K/CU MM 150-430 MEAN PLATELET VOLUME (BEAKER) (test tdpu=179) 6.6 fL 6.5-10.5 NUCLEATED RED BLOOD CELLS (BEAKER) (test 0 /100 WBC 0-0 wvfm=222) NEUTROPHILS RELATIVE PERCENT (BEAKER) (test 68 % fmce=670) LYMPHOCYTES RELATIVE PERCENT (BEAKER) (test 16 % xtff=465) MONOCYTES RELATIVE PERCENT (BEAKER) (test 12 % olom=036) EOSINOPHILS RELATIVE PERCENT (BEAKER) (test 4 % fenk=642) BASOPHILS RELATIVE PERCENT (BEAKER) (test 1 % lzcy=723) NEUTROPHILS ABSOLUTE COUNT (BEAKER) (test 3.21 K/ L 1.80-8.00 temr=817) LYMPHOCYTES ABSOLUTE COUNT (BEAKER) (test 0.75 K/ L 1.48-4.50 xwlm=247) MONOCYTES ABSOLUTE COUNT (BEAKER) (test vpqn=362) 0.57 K/ L 0.00-1.30 EOSINOPHILS ABSOLUTE COUNT (BEAKER) (test 0.19 K/ L 0.00-0.50 rtbg=190) BASOPHILS ABSOLUTE COUNT (BEAKER) (test vetg=336) 0.03 K/ L 0.00-0.20 0.00PROTHROMBIN [id number] 05:56:00 Test Item Value Reference Range Comments PROTIME (BEAKER) (test wvwk=142) 26.4 seconds 11.7-14.7 INR (BEAKER) (test cplr=366) 2.4 <=5.9 RECOMMENDED COUMADIN/WARFARIN INR THERAPY RANGESSTANDARD DOSE: 2.0 - 3.0 Includes: PROPHYLAXIS forvenous thrombosis, systemic embolization; TREATMENT for venous thrombosis and/or pulmonary embolus.HIGH RISK: Target INR is 2.5-3.5 for patients with mechanical heart valves.BASIC METABOLIC [id number] 04:44: 00 Test Item Value Reference Range Comments SODIUM (BEAKER) (test 134 meq/L 136-145 dvqo=814) POTASSIUM (BEAKER) (test 3.6 meq/L 3.5-5.1 hjhp=046) CHLORIDE (BEAKER) (test 108 meq/L 98-107 jvxo=754) CO2 (BEAKER) (test 19 meq/L 22-29 oacz=183) BLOOD UREA NITROGEN 12 mg/dL 7-21 (BEAKER) (test cetr=211) CREATININE (BEAKER) (test 1.32 mg/dL 0.57-1.25 skyb=353) GLUCOSE RANDOM (BEAKER) 82 mg/dL 70-105 (test omur=331) CALCIUM (BEAKER) (test 7.9 mg/dL 8.4-10.2 zkvy=556) EGFR (BEAKER) (test 57 mL/min/1.73 sq m ESTIMATED GFR IS NOT natx=7577) ACCURATE CREATININE CLEARANCE IN PREDICTING GLOMERULAR FILTRATION RATE. ESTIMATED GFR IS NOT APPLICABLE FOR DIALYSIS PATIENTS. Specimen moderately ictericHEPATIC FUNCTION [id number] 04:42:00 Test Item Value Reference Range Comments TOTAL PROTEIN (BEAKER) (test iqmy=582) 5.8 gm/dL 6.0-8.3 ALBUMIN (BEAKER) (test zyaq=4687) 3.1 g/dL 3.5-5.0 BILIRUBIN TOTAL (BEAKER) (test dwtv=555) 5.1 mg/dL 0.2-1.2 BILIRUBIN DIRECT (BEAKER) (test sueu=590) 2.7 mg/dL 0.1-0.5 ALKALINE PHOSPHATASE (BEAKER) (test tjwc=929) 51 U/L 40-150 AST (SGOT) (BEAKER) (test easr=676) 27 U/L 5-34 ALT (SGPT) (BEAKER) (test extj=277) 7 U/L 6-55 Specimen moderately ictericCBC W/PLT COUNT & AUTO [id number] 04: 35:00 Test Item Value Reference Range Comments WHITE BLOOD CELL COUNT (BEAKER) (test agfk=996) 4.6 K/ L 4.0-10.0 RED BLOOD CELL COUNT (BEAKER) (test nakv=341) 2.06 M/ L 4.20-5.80 HEMOGLOBIN (BEAKER) (test afus=950) 7.2 GM/DL 13.0-16.8 HEMATOCRIT (BEAKER) (test fggv=934) 21.5 % 40.0-50.0 MEAN CORPUSCULAR VOLUME (BEAKER) (test dozv=126) 104.0 fL 82.0-98.0 MEAN CORPUSCULAR HEMOGLOBIN (BEAKER) (test 35.0 pg 27.0-33.0 kfdt=589) MEAN CORPUSCULAR HEMOGLOBIN CONC (BEAKER) (test 33.6 GM/DL 32.0-36.0 zqcm=670) RED CELL DISTRIBUTION WIDTH (BEAKER) (test 13.4 % 10.3-14.2 caee=834) PLATELET COUNT (BEAKER) (test lmgk=351) 76 K/CU MM 150-430 MEAN PLATELET VOLUME (BEAKER) (test ohdz=801) 6.5 fL 6.5-10.5 NUCLEATED RED BLOOD CELLS (BEAKER) (test 0 /100 WBC 0-0 egtg=345) NEUTROPHILS RELATIVE PERCENT (BEAKER) (test 64 % mvsw=561) LYMPHOCYTES RELATIVE PERCENT (BEAKER) (test 16 % smlx=429) MONOCYTES RELATIVE PERCENT (BEAKER) (test 16 % ormh=326) EOSINOPHILS RELATIVE PERCENT (BEAKER) (test 4 % lvgu=568) BASOPHILS RELATIVE PERCENT (BEAKER) (test 1 % xxoj=556) NEUTROPHILS ABSOLUTE COUNT (BEAKER) (test 2.89 K/ L 1.80-8.00 vbtz=659) LYMPHOCYTES ABSOLUTE COUNT (BEAKER) (test 0.72 K/ L 1.48-4.50 vcnn=875) MONOCYTES ABSOLUTE COUNT (BEAKER) (test jirl=086) 0.71 K/ L 0.00-1.30 EOSINOPHILS ABSOLUTE COUNT (BEAKER) (test 0.20 K/ L 0.00-0.50 csyn=224) BASOPHILS ABSOLUTE COUNT (BEAKER) (test ipik=534) 0.03 K/ L 0.00-0.20 0.00PROTHROMBIN [id number] 04:33:00 Test Item Value Reference Range Comments PROTIME (BEAKER) (test vhfx=985) 30.2 seconds 11.7-14.7 INR (BEAKER) (test kfib=863) 2.9 <=5.9 RECOMMENDED COUMADIN/WARFARIN INR THERAPY RANGESSTANDARD DOSE: 2.0 - 3.0 Includes: PROPHYLAXIS forvenous thrombosis, systemic embolization; TREATMENT for venous thrombosis and/or pulmonary embolus.HIGH RISK: Target INR is 2.5-3.5 for patients with mechanical heart valves.VANCOMYCIN LEVEL, [id number] 17: 04:00 Test Item Value Reference Range Comments VANCOMYCIN TROUGH (BEAKER) (test jnsf=482) 12.2 ug/mL 10.0-20.0 URINE [id number] 14:25:00 Test Item Value Reference Range Comments CULTURE (BEAKER) (test xymq=5637) No growth TSH/FREE T4 IF [id number] 14:22:00 Test Item Value Reference Range Comments THYROID STIMULATING HORMONE (BEAKER) (test 3.53 uIU/mL 0.35-4.94 fxzv=666) URINE [id number] 11:43:00 Test Item Value Reference Range Comments CULTURE (BEAKER) (test kfmw=4300) No growth CBC W/PLT COUNT & AUTO [id number] 07:55:00 Test Item Value Reference Range Comments WHITE BLOOD CELL COUNT (BEAKER) (test hqhf=924) 4.5 K/ L 4.0-10.0 RED BLOOD CELL COUNT (BEAKER) (test yjuz=799) 2.06 M/ L 4.20-5.80 HEMOGLOBIN (BEAKER) (test yvvr=299) 7.1 GM/DL 13.0-16.8 HEMATOCRIT (BEAKER) (test hlza=018) 21.5 % 40.0-50.0 MEAN CORPUSCULAR VOLUME (BEAKER) (test whap=346) 104.0 fL 82.0-98.0 MEAN CORPUSCULAR HEMOGLOBIN (BEAKER) (test 34.5 pg 27.0-33.0 basg=767) MEAN CORPUSCULAR HEMOGLOBIN CONC (BEAKER) (test 33.1 GM/DL 32.0-36.0 xqkr=635) RED CELL DISTRIBUTION WIDTH (BEAKER) (test 13.4 % 10.3-14.2 mphy=578) PLATELET COUNT (BEAKER) (test fhff=558) 79 K/CU MM 150-430 MEAN PLATELET VOLUME (BEAKER) (test ioqi=400) 6.8 fL 6.5-10.5 NUCLEATED RED BLOOD CELLS (BEAKER) (test 0 /100 WBC 0-0 rzmi=006) NEUTROPHILS RELATIVE PERCENT (BEAKER) (test 64 % ifps=438) LYMPHOCYTES RELATIVE PERCENT (BEAKER) (test 16 % aogm=232) MONOCYTES RELATIVE PERCENT (BEAKER) (test 15 % bezr=616) EOSINOPHILS RELATIVE PERCENT (BEAKER) (test 5 % yzdw=499) BASOPHILS RELATIVE PERCENT (BEAKER) (test 0 % rhpa=141) NEUTROPHILS ABSOLUTE COUNT (BEAKER) (test 2.88 K/ L 1.80-8.00 hpkc=523) LYMPHOCYTES ABSOLUTE COUNT (BEAKER) (test 0.73 K/ L 1.48-4.50 yuym=489) MONOCYTES ABSOLUTE COUNT (BEAKER) (test whqi=824) 0.68 K/ L 0.00-1.30 EOSINOPHILS ABSOLUTE COUNT (BEAKER) (test 0.23 K/ L 0.00-0.50 tpjb=586) BASOPHILS ABSOLUTE COUNT (BEAKER) (test vjar=217) 0.02 K/ L 0.00-0.20 0.00BASIC METABOLIC [id number] 05:58:00 Test Item Value Reference Range Comments SODIUM (BEAKER) (test 137 meq/L 136-145 nrdl=062) POTASSIUM (BEAKER) (test 3.7 meq/L 3.5-5.1 xcps=422) CHLORIDE (BEAKER) (test 110 meq/L 98-107 coux=767) CO2 (BEAKER) (test 19 meq/L 22-29 ycqp=200) BLOOD UREA NITROGEN 12 mg/dL 7-21 (BEAKER) (test jpmn=174) CREATININE (BEAKER) (test 1.29 mg/dL 0.57-1.25 dpef=483) GLUCOSE RANDOM (BEAKER) 80 mg/dL 70-105 (test ghvc=518) CALCIUM (BEAKER) (test 8.1 mg/dL 8.4-10.2 dcwp=547) EGFR (BEAKER) (test 59 mL/min/1.73 sq m ESTIMATED GFR IS NOT ryaz=8442) ACCURATE CREATININE CLEARANCE IN PREDICTING GLOMERULAR FILTRATION RATE. ESTIMATED GFR IS NOT APPLICABLE FOR DIALYSIS PATIENTS. Specimen moderately ictericHEPATIC FUNCTION [id number] 05:58:00 Test Item Value Reference Range Comments TOTAL PROTEIN (BEAKER) (test frps=177) 5.9 gm/dL 6.0-8.3 ALBUMIN (BEAKER) (test wjur=7203) 3.4 g/dL 3.5-5.0 BILIRUBIN TOTAL (BEAKER) (test jsnr=870) 5.6 mg/dL 0.2-1.2 BILIRUBIN DIRECT (BEAKER) (test prqm=463) 2.6 mg/dL 0.1-0.5 ALKALINE PHOSPHATASE (BEAKER) (test nlzl=369) 50 U/L 40-150 AST (SGOT) (BEAKER) (test yybd=287) 30 U/L 5-34 ALT (SGPT) (BEAKER) (test epfd=579) 9 U/L 6-55 Specimen moderately ictericPROTHROMBIN [id number] 05:31:00 Test Item Value Reference Range Comments PROTIME (BEAKER) (test yoxq=514) 29.0 seconds 11.7-14.7 INR (BEAKER) (test cfvp=030) 2.7 <=5.9 RECOMMENDED COUMADIN/WARFARIN INR THERAPY RANGESSTANDARD DOSE: 2.0 - 3.0 Includes: PROPHYLAXIS forvenous thrombosis, systemic embolization; TREATMENT for venous thrombosis and/or pulmonary embolus.HIGH RISK: Target INR is 2.5-3.5 for patients with mechanical heart valves.ANAEROBIC [id number] 05:15:00 Test Item Value Reference Range Comments CULTURE (BEAKER) (test lgpl=9290) No anaerobes isolated BLOOD [id number] 00:00:00 Test Item Value Reference Range Comments CULTURE (BEAKER) (test oibw=2197) No growth in 5 days BLOOD [id number] 00:00:00 Test Item Value Reference Range Comments CULTURE (BEAKER) (test wdip=2521) No growth in 5 days URINALYSIS W/ REFLEX URINE [id number] 08:28:00 Test Item Value Reference Range Comments COLOR (BEAKER) (test lnqx=055) Yellow CLARITY (BEAKER) (test wiue=945) Clear SPECIFIC GRAVITY UA (BEAKER) (test inzv=194) 1.006 1.001-1.035 PH UA (BEAKER) (test orta=490) 6.5 5.0-8.0 PROTEIN UA (BEAKER) (test qjrn=806) Negative Negative GLUCOSE UA (BEAKER) (test mhbn=824) Negative Negative KETONES UA (BEAKER) (test vttw=394) Negative Negative BILIRUBIN UA (BEAKER) (test qdtd=898) Negative Negative BLOOD UA (BEAKER) (test kqck=188) Negative Negative NITRITE UA (BEAKER) (test ekpb=021) Negative Negative LEUKOCYTE ESTERASE UA (BEAKER) (test qkzk=527) Small Negative UROBILINOGEN UA (BEAKER) (test serb=737) 0.2 mg/dL 0.2-1.0 RBC UA (BEAKER) (test nqir=662) 1 /HPF WBC UA (BEAKER) (test kcov=595) 6 /HPF BACTERIA (BEAKER) (test zyyc=512) Rare SOURCE(BEAKER) (test ifwj=0295) CBC W/PLT COUNT & AUTO [id number] 07:21:00 Test Item Value Reference Range Comments WHITE BLOOD CELL COUNT (BEAKER) (test yqoi=473) 5.9 K/ L 4.0-10.0 RED BLOOD CELL COUNT (BEAKER) (test yhbq=728) 2.12 M/ L 4.20-5.80 HEMOGLOBIN (BEAKER) (test aqxy=326) 7.3 GM/DL 13.0-16.8 HEMATOCRIT (BEAKER) (test xfog=801) 22.2 % 40.0-50.0 MEAN CORPUSCULAR VOLUME (BEAKER) (test vmlq=800) 105.0 fL 82.0-98.0 MEAN CORPUSCULAR HEMOGLOBIN (BEAKER) (test 34.2 pg 27.0-33.0 bblc=310) MEAN CORPUSCULAR HEMOGLOBIN CONC (BEAKER) (test 32.7 GM/DL 32.0-36.0 sgrf=342) RED CELL DISTRIBUTION WIDTH (BEAKER) (test 13.1 % 10.3-14.2 jtdq=953) PLATELET COUNT (BEAKER) (test ardz=536) 80 K/CU MM 150-430 MEAN PLATELET VOLUME (BEAKER) (test wzmg=040) 6.5 fL 6.5-10.5 NUCLEATED RED BLOOD CELLS (BEAKER) (test 0 /100 WBC 0-0 xnwr=286) NEUTROPHILS RELATIVE PERCENT (BEAKER) (test 67 % cajr=068) LYMPHOCYTES RELATIVE PERCENT (BEAKER) (test 14 % nwct=800) MONOCYTES RELATIVE PERCENT (BEAKER) (test 14 % ydmq=623) EOSINOPHILS RELATIVE PERCENT (BEAKER) (test 4 % bhnx=839) BASOPHILS RELATIVE PERCENT (BEAKER) (test 0 % qriy=551) NEUTROPHILS ABSOLUTE COUNT (BEAKER) (test 3.97 K/ L 1.80-8.00 ypna=131) LYMPHOCYTES ABSOLUTE COUNT (BEAKER) (test 0.85 K/ L 1.48-4.50 vnod=952) MONOCYTES ABSOLUTE COUNT (BEAKER) (test wbny=171) 0.81 K/ L 0.00-1.30 EOSINOPHILS ABSOLUTE COUNT (BEAKER) (test 0.25 K/ L 0.00-0.50 shez=248) BASOPHILS ABSOLUTE COUNT (BEAKER) (test gort=724) 0.03 K/ L 0.00-0.20 [id number] 06:35:00 Test Item Value Reference Range Comments PHOSPHORUS (BEAKER) (test epew=129) 3.5 mg/dL 2.3-4.7 [id number] 06:35:00 Test Item Value Reference Range Comments MAGNESIUM (BEAKER) (test zwrv=235) 1.7 mg/dL 1.6-2.6 BASIC METABOLIC [id number] 06:35:00 Test Item Value Reference Range Comments SODIUM (BEAKER) (test 137 meq/L 136-145 yyxa=248) POTASSIUM (BEAKER) (test 4.0 meq/L 3.5-5.1 fvvb=529) CHLORIDE (BEAKER) (test 109 meq/L 98-107 tcvg=470) CO2 (BEAKER) (test 20 meq/L 22-29 bvxv=970) BLOOD UREA NITROGEN 13 mg/dL 7-21 (BEAKER) (test wrfn=673) CREATININE (BEAKER) (test 1.56 mg/dL 0.57-1.25 srkm=738) GLUCOSE RANDOM (BEAKER) 85 mg/dL 70-105 (test ygog=220) CALCIUM (BEAKER) (test 8.4 mg/dL 8.4-10.2 ysqa=287) EGFR (BEAKER) (test 47 mL/min/1.73 sq m ESTIMATED GFR IS NOT foom=9388) ACCURATE CREATININE CLEARANCE IN PREDICTING GLOMERULAR FILTRATION RATE. ESTIMATED GFR IS NOT APPLICABLE FOR DIALYSIS PATIENTS. Specimen moderately ictericHEPATIC FUNCTION [id number] 06:35:00 Test Item Value Reference Range Comments TOTAL PROTEIN (BEAKER) (test fcbf=337) 6.5 gm/dL 6.0-8.3 ALBUMIN (BEAKER) (test ecjn=8470) 3.8 g/dL 3.5-5.0 BILIRUBIN TOTAL (BEAKER) (test iihg=986) 6.1 mg/dL 0.2-1.2 BILIRUBIN DIRECT (BEAKER) (test tftw=584) 2.9 mg/dL 0.1-0.5 ALKALINE PHOSPHATASE (BEAKER) (test azjr=347) 54 U/L 40-150 AST (SGOT) (BEAKER) (test wkfr=072) 28 U/L 5-34 ALT (SGPT) (BEAKER) (test fakq=733) 7 U/L 6-55 Specimen moderately ictericPROTHROMBIN [id number] 06:06:00 Test Item Value Reference Range Comments PROTIME (BEAKER) (test wzwq=826) 26.1 seconds 11.7-14.7 INR (BEAKER) (test kydl=386) 2.4 <=5.9 RECOMMENDED COUMADIN/WARFARIN INR THERAPY RANGESSTANDARD DOSE: 2.0 - 3.0 Includes: PROPHYLAXIS forvenous thrombosis, systemic embolization; TREATMENT for venous thrombosis and/or pulmonary embolus.HIGH RISK: Target INR is 2.5-3.5 for patients with mechanical heart valves.CALCIUM, [id number] 06:06:00 Test Item Value Reference Range Comments CALCIUM IONIZED (BEAKER) (test yala=976) 1.06 mmol/L 1.12-1.27 PH, BLOOD (BEAKER) (test wovr=2939) 7.46 SURGICALLY OBTAINED CULTURE + GRAM [id number] 23:51:00 Test Item Value Reference Range Comments CULTURE (BEAKER) (test xxkk=1494) No growth GRAM STAIN RESULT (BEAKER) (test 1+ WBCs rrhu=2369) GRAM STAIN RESULT (BEAKER) (test No organisms seen uwmg=12010) BODY FLUID CULTURE + GRAM [id number] 23:42:00 Test Item Value Reference Range Comments CULTURE (BEAKER) (test jiim=3792) No growth GRAM STAIN RESULT (BEAKER) (test 1+ WBCs rlkf=4815) GRAM STAIN RESULT (BEAKER) (test No organisms seen yonm=53955) BODY FLUID CELL COUNT WITH [id number] 19:59:00 Test Item Value Reference Range Comments APPEARANCE FLUID (BEAKER) (test qnph=835) Hazy Clear COLOR FLUID (BEAKER) (test duoj=135) Yellow Colorless, Straw RBC FLUID (BEAKER) (test zstr=497) 2435 /cu mm <=1 ADJUSTED WBC FLUID (BEAKER) (test svgk=9431) 441 /cu mm <=5 LINING CELLS (BEAKER) (test ztsv=8336) 9 /cu mm <=1 NEUTROPHILS FLUID (BEAKER) (test ajrt=0410) 16 % LYMPHS FLUID (BEAKER) (test wflb=689) 10 % MONO/MACROPHAGE FLUID (BEAKER) (test xosp=929) 74 % EOSINOPHILS FLUID (BEAKER) (test bkfa=150) 0 % BASO FLUID (BEAKER) (test eiyj=405) 0 % CONTAINER BODY FLUID (BEAKER) (test twim=3505) EDTA Tube [id number] 11:01:00 Test Item Value Reference Range Comments PROCALCITONIN (BEAKER) (test btir=6439) 0.25 ng/mL <0.05 SEPSIS RISK (ng/mL)Low: 0.05-0.50Intermediate: 0.51-2.00High: & gt;=2.01CBC W/PLT COUNT & AUTO [id number] 08:40:00 Test Item Value Reference Range Comments WHITE BLOOD CELL COUNT (BEAKER) (test lvhe=428) 6.3 K/ L 4.0-10.0 RED BLOOD CELL COUNT (BEAKER) (test kwvg=261) 2.07 M/ L 4.20-5.80 HEMOGLOBIN (BEAKER) (test jpzd=099) 7.1 GM/DL 13.0-16.8 HEMATOCRIT (BEAKER) (test sypd=980) 21.9 % 40.0-50.0 MEAN CORPUSCULAR VOLUME (BEAKER) (test lvvf=596) 106.0 fL 82.0-98.0 MEAN CORPUSCULAR HEMOGLOBIN (BEAKER) (test 34.1 pg 27.0-33.0 epnb=456) MEAN CORPUSCULAR HEMOGLOBIN CONC (BEAKER) (test 32.2 GM/DL 32.0-36.0 ngei=130) RED CELL DISTRIBUTION WIDTH (BEAKER) (test 13.1 % 10.3-14.2 zuah=355) PLATELET COUNT (BEAKER) (test ismr=964) 78 K/CU MM 150-430 MEAN PLATELET VOLUME (BEAKER) (test woom=244) 6.6 fL 6.5-10.5 NUCLEATED RED BLOOD CELLS (BEAKER) (test 0 /100 WBC 0-0 afdi=693) NEUTROPHILS RELATIVE PERCENT (BEAKER) (test 73 % ygqi=598) LYMPHOCYTES RELATIVE PERCENT (BEAKER) (test 10 % ebqk=877) MONOCYTES RELATIVE PERCENT (BEAKER) (test 13 % upaa=652) EOSINOPHILS RELATIVE PERCENT (BEAKER) (test 4 % vkst=515) BASOPHILS RELATIVE PERCENT (BEAKER) (test 0 % nqde=430) NEUTROPHILS ABSOLUTE COUNT (BEAKER) (test 4.60 K/ L 1.80-8.00 iehz=375) LYMPHOCYTES ABSOLUTE COUNT (BEAKER) (test 0.64 K/ L 1.48-4.50 jbcn=347) MONOCYTES ABSOLUTE COUNT (BEAKER) (test zmsy=081) 0.81 K/ L 0.00-1.30 EOSINOPHILS ABSOLUTE COUNT (BEAKER) (test 0.23 K/ L 0.00-0.50 hihe=163) BASOPHILS ABSOLUTE COUNT (BEAKER) (test zmyt=227) 0.01 K/ L 0.00-0.20 [id number] 06:50:00 Test Item Value Reference Range Comments PHOSPHORUS (BEAKER) (test gmhc=862) 3.0 mg/dL 2.3-4.7 [id number] 06:50:00 Test Item Value Reference Range Comments MAGNESIUM (BEAKER) (test fbfh=066) 1.9 mg/dL 1.6-2.6 BASIC METABOLIC [id number] 06:50:00 Test Item Value Reference Range Comments SODIUM (BEAKER) (test 135 meq/L 136-145 qbdm=908) POTASSIUM (BEAKER) (test 4.2 meq/L 3.5-5.1 eepz=306) CHLORIDE (BEAKER) (test 106 meq/L 98-107 sapf=998) CO2 (BEAKER) (test 21 meq/L 22-29 limn=453) BLOOD UREA NITROGEN 19 mg/dL 7-21 (BEAKER) (test qkpx=885) CREATININE (BEAKER) (test 1.62 mg/dL 0.57-1.25 mqlr=946) GLUCOSE RANDOM (BEAKER) 98 mg/dL 70-105 (test ekon=115) CALCIUM (BEAKER) (test 8.6 mg/dL 8.4-10.2 gjrp=888) EGFR (BEAKER) (test 45 mL/min/1.73 sq m ESTIMATED GFR IS NOT dxmu=4814) ACCURATE CREATININE CLEARANCE IN PREDICTING GLOMERULAR FILTRATION RATE. ESTIMATED GFR IS NOT APPLICABLE FOR DIALYSIS PATIENTS. Specimen moderately ictericHEPATIC FUNCTION [id number] 06:50:00 Test Item Value Reference Range Comments TOTAL PROTEIN (BEAKER) (test zwxr=311) 6.3 gm/dL 6.0-8.3 ALBUMIN (BEAKER) (test xwij=4105) 3.7 g/dL 3.5-5.0 BILIRUBIN TOTAL (BEAKER) (test jdsq=055) 6.2 mg/dL 0.2-1.2 BILIRUBIN DIRECT (BEAKER) (test dtmm=426) 2.8 mg/dL 0.1-0.5 ALKALINE PHOSPHATASE (BEAKER) (test jgkj=579) 54 U/L 40-150 AST (SGOT) (BEAKER) (test pgey=986) 29 U/L 5-34 ALT (SGPT) (BEAKER) (test qfzb=143) 8 U/L 6-55 Specimen moderately ictericCALCIUM, [id number] 06:48:00 Test Item Value Reference Range Comments CALCIUM IONIZED (BEAKER) (test oxao=697) 1.12 mmol/L 1.12-1.27 PH, BLOOD (BEAKER) (test pbjv=0676) 7.33 PROTHROMBIN [id number] 06:24:00 Test Item Value Reference Range Comments PROTIME (BEAKER) (test nqeq=857) 25.4 seconds 11.7-14.7 INR (BEAKER) (test wqgl=967) 2.3 <=5.9 RECOMMENDED COUMADIN/WARFARIN INR THERAPY RANGESSTANDARD DOSE: 2.0 - 3.0 Includes: PROPHYLAXIS forvenous thrombosis, systemic embolization; TREATMENT for venous thrombosis and/or pulmonary embolus.HIGH RISK: Target INR is 2.5-3.5 for patients with mechanical heart valves.[id number] 11:17:00 Test Item Value Reference Range Comments FIBRINOGEN LEVEL (BEAKER) (test yvkj=990) 115 mg/dl 225-434 CALCIUM, [id number] 06:04:00 Test Item Value Reference Range Comments CALCIUM IONIZED (BEAKER) (test kpyv=481) 1.08 mmol/L 1.12-1.27 PH, BLOOD (BEAKER) (test xcwg=9187) 7.41 CBC W/PLT COUNT & AUTO [id number] 05:28:00 Test Item Value Reference Range Comments WHITE BLOOD CELL COUNT (BEAKER) (test oowu=208) 5.6 K/ L 4.0-10.0 RED BLOOD CELL COUNT (BEAKER) (test jsyy=811) 2.00 M/ L 4.20-5.80 HEMOGLOBIN (BEAKER) (test uwjl=274) 7.2 GM/DL 13.0-16.8 HEMATOCRIT (BEAKER) (test glqn=984) 21.2 % 40.0-50.0 MEAN CORPUSCULAR VOLUME (BEAKER) (test qazs=758) 106.0 fL 82.0-98.0 MEAN CORPUSCULAR HEMOGLOBIN (BEAKER) (test 36.0 pg 27.0-33.0 vfam=185) MEAN CORPUSCULAR HEMOGLOBIN CONC (BEAKER) (test 34.0 GM/DL 32.0-36.0 dyjc=367) RED CELL DISTRIBUTION WIDTH (BEAKER) (test 13.9 % 10.3-14.2 cxau=456) PLATELET COUNT (BEAKER) (test mjlf=520) 74 K/CU MM 150-430 MEAN PLATELET VOLUME (BEAKER) (test ylbu=653) 6.6 fL 6.5-10.5 NUCLEATED RED BLOOD CELLS (BEAKER) (test 0 /100 WBC 0-0 rwqi=547) NEUTROPHILS RELATIVE PERCENT (BEAKER) (test 66 % mqkm=169) LYMPHOCYTES RELATIVE PERCENT (BEAKER) (test 14 % kdsp=835) MONOCYTES RELATIVE PERCENT (BEAKER) (test 13 % dtpf=415) EOSINOPHILS RELATIVE PERCENT (BEAKER) (test 7 % bcft=948) BASOPHILS RELATIVE PERCENT (BEAKER) (test 0 % fykb=216) NEUTROPHILS ABSOLUTE COUNT (BEAKER) (test 3.67 K/ L 1.80-8.00 orrk=855) LYMPHOCYTES ABSOLUTE COUNT (BEAKER) (test 0.80 K/ L 1.48-4.50 znvp=509) MONOCYTES ABSOLUTE COUNT (BEAKER) (test bfcf=882) 0.69 K/ L 0.00-1.30 EOSINOPHILS ABSOLUTE COUNT (BEAKER) (test 0.38 K/ L 0.00-0.50 beaf=206) BASOPHILS ABSOLUTE COUNT (BEAKER) (test zpyt=661) 0.02 K/ L 0.00-0.20 0.00PROTHROMBIN [id number] 05:11:00 Test Item Value Reference Range Comments PROTIME (BEAKER) (test tyyd=128) 25.9 seconds 11.7-14.7 INR (BEAKER) (test ngzf=755) 2.4 <=5.9 RECOMMENDED COUMADIN/WARFARIN INR THERAPY RANGESSTANDARD DOSE: 2.0 - 3.0 Includes: PROPHYLAXIS forvenous thrombosis, systemic embolization; TREATMENT for venous thrombosis and/or pulmonary embolus.HIGH RISK: Target INR is 2.5-3.5 for patients with mechanical heart valves.[id number] 05:03:00 Test Item Value Reference Range Comments PHOSPHORUS (BEAKER) (test tbeq=312) 3.5 mg/dL 2.3-4.7 [id number] 05:03:00 Test Item Value Reference Range Comments MAGNESIUM (BEAKER) (test jzdt=820) 1.7 mg/dL 1.6-2.6 BASIC METABOLIC [id number] 05:03:00 Test Item Value Reference Range Comments SODIUM (BEAKER) (test 135 meq/L 136-145 whdx=067) POTASSIUM (BEAKER) (test 4.0 meq/L 3.5-5.1 hyuh=983) CHLORIDE (BEAKER) (test 107 meq/L 98-107 kawi=187) CO2 (BEAKER) (test 20 meq/L 22-29 mswp=415) BLOOD UREA NITROGEN 22 mg/dL 7-21 (BEAKER) (test cpll=674) CREATININE (BEAKER) (test 1.77 mg/dL 0.57-1.25 qcah=914) GLUCOSE RANDOM (BEAKER) 83 mg/dL 70-105 (test uobl=005) CALCIUM (BEAKER) (test 8.3 mg/dL 8.4-10.2 fvzh=894) EGFR (BEAKER) (test 41 mL/min/1.73 sq m ESTIMATED GFR IS NOT kyml=0466) ACCURATE CREATININE CLEARANCE IN PREDICTING GLOMERULAR FILTRATION RATE. ESTIMATED GFR IS NOT APPLICABLE FOR DIALYSIS PATIENTS. Specimen moderately ictericHEPATIC FUNCTION [id number] 05:03:00 Test Item Value Reference Range Comments TOTAL PROTEIN (BEAKER) (test yzft=814) 6.2 gm/dL 6.0-8.3 ALBUMIN (BEAKER) (test kxsn=8293) 3.7 g/dL 3.5-5.0 BILIRUBIN TOTAL (BEAKER) (test sdqm=087) 6.0 mg/dL 0.2-1.2 BILIRUBIN DIRECT (BEAKER) (test mnmk=238) 2.6 mg/dL 0.1-0.5 ALKALINE PHOSPHATASE (BEAKER) (test oqcn=657) 48 U/L 40-150 AST (SGOT) (BEAKER) (test nnns=407) 26 U/L 5-34 ALT (SGPT) (BEAKER) (test zdwj=147) 8 U/L 6-55 Specimen moderately ictericURINE [id number] 14:42:00 Test Item Value Reference Range Comments CULTURE (BEAKER) (test rjmq=7713) No growth ANTI-NUCLEAR ANTIBODY (CHERYL)2017-02-12 13:32:00 Test Item Value Reference Range Comments ANTI-NUCLEAR ANTIBODY (CHERYL) (BEAKER) (test Negative Negative ylqz=329) PLATELET [id number] 06:30:00 Test Item Value Reference Range Comments PLATELET COUNT (BEAKER) (test raxt=973) 104 K/CU MM 150-430 [id number] 06:22:00 Test Item Value Reference Range Comments FIBRINOGEN LEVEL (BEAKER) (test hlrj=196) 106 mg/dl 225-434 [id number] 06:16:00 Test Item Value Reference Range Comments PARTIAL THROMBOPLASTIN TIME (BEAKER) (test 48.1 seconds 22.5-36.0 yrvi=036) PROTHROMBIN [id number] 06:15:00 Test Item Value Reference Range Comments PROTIME (BEAKER) (test yday=327) 23.5 seconds 11.7-14.7 INR (BEAKER) (test ajrt=932) 2.1 <=5.9 RECOMMENDED COUMADIN/WARFARIN INR THERAPY RANGESSTANDARD DOSE: 2.0 - 3.0 Includes: PROPHYLAXIS forvenous thrombosis, systemic embolization; TREATMENT for venous thrombosis and/or pulmonary embolus.HIGH RISK: Target INR is 2.5-3.5 for patients with mechanical heart valves.[id number] 06:12:00 Test Item Value Reference Range Comments MAGNESIUM (BEAKER) (test 2.0 mg/dL 1.6-2.6 Specimen slightly hemolyzed uavd=154) [id number] 06:12:00 Test Item Value Reference Range Comments PHOSPHORUS (BEAKER) (test 5.0 mg/dL 2.3-4.7 Specimen slightly hemolyzed seft=562) BASIC METABOLIC [id number] 06:12:00 Test Item Value Reference Range Comments SODIUM (BEAKER) (test 135 meq/L 136-145 tefk=077) POTASSIUM (BEAKER) (test 4.7 meq/L 3.5-5.1 Specimen slightly ihzu=955) hemolyzed CHLORIDE (BEAKER) (test 107 meq/L 98-107 yehj=226) CO2 (BEAKER) (test 20 meq/L 22-29 ustl=951) BLOOD UREA NITROGEN 18 mg/dL 7-21 (BEAKER) (test yzoi=046) CREATININE (BEAKER) (test 1.74 mg/dL 0.57-1.25 Specimen slightly aoko=562) hemolyzed GLUCOSE RANDOM (BEAKER) 76 mg/dL 70-105 (test nkbq=860) CALCIUM (BEAKER) (test 8.1 mg/dL 8.4-10.2 fojb=909) EGFR (BEAKER) (test 42 mL/min/1.73 sq m ESTIMATED GFR IS NOT gney=7806) ACCURATE CREATININE CLEARANCE IN PREDICTING GLOMERULAR FILTRATION RATE. ESTIMATED GFR IS NOT APPLICABLE FOR DIALYSIS PATIENTS. Specimen moderately ictericHEPATIC FUNCTION [id number] 06:12:00 Test Item Value Reference Range Comments TOTAL PROTEIN (BEAKER) (test 6.6 gm/dL 6.0-8.3 Specimen slightly hemolyzed dsll=260) ALBUMIN (BEAKER) (test 3.7 g/dL 3.5-5.0 Specimen slightly hemolyzed mzbo=0651) BILIRUBIN TOTAL (BEAKER) (test 5.7 mg/dL 0.2-1.2 Specimen slightly hemolyzed vige=939) BILIRUBIN DIRECT (BEAKER) (test 2.7 mg/dL 0.1-0.5 Specimen slightly hemolyzed kttw=371) ALKALINE PHOSPHATASE (BEAKER) 56 U/L 40-150 (test sjql=445) AST (SGOT) (BEAKER) (test 29 U/L 5-34 Specimen slightly hemolyzed kyxt=272) ALT (SGPT) (BEAKER) (test 7 U/L 6-55 Specimen slightly hemolyzed pjuv=318) Specimen moderately ictericLACTIC ACID, VENOUS, WHOLE [id number] 06:04:00 Test Item Value Reference Range Comments LACTATE BLOOD VENOUS (2) (BEAKER) (test 1.0 mmol/L 0.5-2.2 axwn=4389) Effective 02/28/2016: Units/Reference Range ChangeNew: 0.5-2.2 mmol/L Previous: 5 -20 mg/dLSpecimen moderately ictericCALCIUM, [id number] 05:56:00 Test Item Value Reference Range Comments CALCIUM IONIZED (BEAKER) (test dwwc=643) 1.00 mmol/L 1.12-1.27 PH, BLOOD (BEAKER) (test gnpp=3132) 7.34 [id number] 21:34:00 Test Item Value Reference Range Comments FIBRINOGEN LEVEL (BEAKER) (test bwyn=172) 105 mg/dl 225-434 PLATELET [id number] 20:52:00 Test Item Value Reference Range Comments PLATELET COUNT (BEAKER) (test igbq=988) 77 K/CU MM 150-430 PT/[id number] 20:51:00 Test Item Value Reference Range Comments PROTIME (BEAKER) (test dgkn=327) 21.1 seconds 11.7-14.7 INR (BEAKER) (test adzg=713) 1.8 <=5.9 PARTIAL THROMBOPLASTIN TIME (BEAKER) (test 47.3 seconds 22.5-36.0 eman=712) RECOMMENDED COUMADIN/WARFARIN INR THERAPY RANGESSTANDARD DOSE: 2.0 - 3.0 Includes: PROPHYLAXIS forvenous thrombosis, systemic embolization; TREATMENT for venous thrombosis and/or pulmonary embolus.HIGH RISK: Target INR is 2.5-3.5 for patients with mechanical heart valves.[id number] 20:51:00 Test Item Value Reference Range Comments PARTIAL THROMBOPLASTIN TIME (BEAKER) (test 47.3 seconds 22.5-36.0 omnc=304) PROTHROMBIN [id number] 20:50:00 Test Item Value Reference Range Comments PROTIME (BEAKER) (test ekgb=959) 21.1 seconds 11.7-14.7 INR (BEAKER) (test aenz=840) 1.8 <=5.9 RECOMMENDED COUMADIN/WARFARIN INR THERAPY RANGESSTANDARD DOSE: 2.0 - 3.0 Includes: PROPHYLAXIS forvenous thrombosis, systemic embolization; TREATMENT for venous thrombosis and/or pulmonary embolus.HIGH RISK: Target INR is 2.5-3.5 for patients with mechanical heart valves.[id number] 19:30:00 Test Item Value Reference Range Comments PARTIAL THROMBOPLASTIN TIME (BEAKER) (test 45.1 seconds 22.5-36.0 dwjt=199) PROTHROMBIN [id number] 19:29:00 Test Item Value Reference Range Comments PROTIME (BEAKER) (test ptgu=022) 28.2 seconds 11.7-14.7 INR (BEAKER) (test egcd=624) 2.6 <=5.9 RECOMMENDED COUMADIN/WARFARIN INR THERAPY RANGESSTANDARD DOSE: 2.0 - 3.0 Includes: PROPHYLAXIS forvenous thrombosis, systemic embolization; TREATMENT for venous thrombosis and/or pulmonary embolus.HIGH RISK: Target INR is 2.5-3.5 for patients with mechanical heart valves.BODY FLUID CELL COUNT WITH [id number] 18:53:00 Test Item Value Reference Range Comments APPEARANCE FLUID (BEAKER) (test uecw=421) Hazy Clear COLOR FLUID (BEAKER) (test xinz=540) Yellow Colorless, Straw RBC FLUID (BEAKER) (test sgxq=612) 900 /cu mm <=1 ADJUSTED WBC FLUID (BEAKER) (test mvei=5783) 306 /cu mm <=5 LINING CELLS (BEAKER) (test svnr=3005) 64 /cu mm <=1 NEUTROPHILS FLUID (BEAKER) (test ojfp=1598) 4 % LYMPHS FLUID (BEAKER) (test evbk=679) 18 % MONO/MACROPHAGE FLUID (BEAKER) (test gznn=751) 78 % EOSINOPHILS FLUID (BEAKER) (test lifa=489) 0 % BASO FLUID (BEAKER) (test zqvk=566) 0 % CONTAINER BODY FLUID (BEAKER) (test qgyy=5091) EDTA Tube [id number] 16:56:00 Test Item Value Reference Range Comments AMYLASE (BEAKER) (test iejk=230) 37 U/L 25-125 Specimen moderately ictericCOMPREHENSIVE METABOLIC [id number] 16:56:00 Test Item Value Reference Range Comments TOTAL PROTEIN (BEAKER) 6.1 gm/dL 6.0-8.3 (test cztl=407) ALBUMIN (BEAKER) (test 3.2 g/dL 3.5-5.0 vtjb=5131) ALKALINE PHOSPHATASE 67 U/L 40-150 (BEAKER) (test ssim=717) BILIRUBIN TOTAL (BEAKER) 5.7 mg/dL 0.2-1.2 (test ulwf=455) SODIUM (BEAKER) (test 134 meq/L 136-145 qwnz=958) POTASSIUM (BEAKER) (test 3.8 meq/L 3.5-5.1 wjyh=467) CHLORIDE (BEAKER) (test 106 meq/L 98-107 wttx=854) CO2 (BEAKER) (test 19 meq/L 22-29 gkwk=123) BLOOD UREA NITROGEN 18 mg/dL 7-21 (BEAKER) (test atss=941) CREATININE (BEAKER) (test 1.52 mg/dL 0.57-1.25 tkke=599) GLUCOSE RANDOM (BEAKER) 112 mg/dL 70-105 (test okgp=899) CALCIUM (BEAKER) (test 8.3 mg/dL 8.4-10.2 mnkd=544) AST (SGOT) (BEAKER) (test 28 U/L 5-34 kvrm=088) ALT (SGPT) (BEAKER) (test 10 U/L 6-55 tlmo=824) EGFR (BEAKER) (test 49 mL/min/1.73 sq m ESTIMATED GFR IS NOT lsti=8774) ACCURATE CREATININE CLEARANCE IN PREDICTING GLOMERULAR FILTRATION RATE. ESTIMATED GFR IS NOT APPLICABLE FOR DIALYSIS PATIENTS. Specimen moderately [id number] 16:56:00 Test Item Value Reference Range Comments LIPASE (BEAKER) (test ndkg=464) 52 U/L 8-78 Specimen moderately ictericCBC W/PLT COUNT & AUTO [id number] 16: 27:00 Test Item Value Reference Range Comments WHITE BLOOD CELL COUNT (BEAKER) (test nsrq=068) 3.7 K/ L 4.0-10.0 RED BLOOD CELL COUNT (BEAKER) (test glac=137) 2.16 M/ L 4.20-5.80 HEMOGLOBIN (BEAKER) (test bgte=310) 7.8 GM/DL 13.0-16.8 HEMATOCRIT (BEAKER) (test oifp=088) 23.1 % 40.0-50.0 MEAN CORPUSCULAR VOLUME (BEAKER) (test bkza=305) 107.0 fL 82.0-98.0 MEAN CORPUSCULAR HEMOGLOBIN (BEAKER) (test 36.0 pg 27.0-33.0 ymje=032) MEAN CORPUSCULAR HEMOGLOBIN CONC (BEAKER) (test 33.6 GM/DL 32.0-36.0 csrn=867) RED CELL DISTRIBUTION WIDTH (BEAKER) (test 13.9 % 10.3-14.2 uwhg=382) PLATELET COUNT (BEAKER) (test grsk=025) 78 K/CU MM 150-430 MEAN PLATELET VOLUME (BEAKER) (test muwn=448) 6.2 fL 6.5-10.5 NUCLEATED RED BLOOD CELLS (BEAKER) (test 0 /100 WBC 0-0 wsbt=104) NEUTROPHILS RELATIVE PERCENT (BEAKER) (test 50 % acbp=247) LYMPHOCYTES RELATIVE PERCENT (BEAKER) (test 25 % xmpv=520) MONOCYTES RELATIVE PERCENT (BEAKER) (test 19 % gdgw=963) EOSINOPHILS RELATIVE PERCENT (BEAKER) (test 6 % kuii=392) BASOPHILS RELATIVE PERCENT (BEAKER) (test 1 % ebyt=737) NEUTROPHILS ABSOLUTE COUNT (BEAKER) (test 1.82 K/ L 1.80-8.00 quhj=460) LYMPHOCYTES ABSOLUTE COUNT (BEAKER) (test 0.91 K/ L 1.48-4.50 hovy=531) MONOCYTES ABSOLUTE COUNT (BEAKER) (test hikc=675) 0.69 K/ L 0.00-1.30 EOSINOPHILS ABSOLUTE COUNT (BEAKER) (test 0.21 K/ L 0.00-0.50 mggw=795) BASOPHILS ABSOLUTE COUNT (BEAKER) (test bluh=551) 0.02 K/ L 0.00-0.20 0.00HEPATIC FUNCTION [id number] 08:34:00 Test Item Value Reference Range Comments TOTAL PROTEIN (BEAKER) (test bpkz=069) 5.9 gm/dL 6.0-8.3 ALBUMIN (BEAKER) (test okyz=2943) 3.2 g/dL 3.5-5.0 BILIRUBIN TOTAL (BEAKER) (test vwfu=850) 5.4 mg/dL 0.2-1.2 BILIRUBIN DIRECT (BEAKER) (test hjts=203) 2.5 mg/dL 0.1-0.5 ALKALINE PHOSPHATASE (BEAKER) (test tlbh=474) 60 U/L 40-150 AST (SGOT) (BEAKER) (test osax=609) 28 U/L 5-34 ALT (SGPT) (BEAKER) (test rohk=837) 10 U/L 6-55 Specimen moderately [id number] 08:16:00 Test Item Value Reference Range Comments PHOSPHORUS (BEAKER) (test corf=601) 3.0 mg/dL 2.3-4.7 [id number] 08:16:00 Test Item Value Reference Range Comments MAGNESIUM (BEAKER) (test obot=056) 1.6 mg/dL 1.6-2.6 BASIC METABOLIC [id number] 08:16:00 Test Item Value Reference Range Comments SODIUM (BEAKER) (test 133 meq/L 136-145 lmql=018) POTASSIUM (BEAKER) (test 3.6 meq/L 3.5-5.1 jprq=391) CHLORIDE (BEAKER) (test 105 meq/L 98-107 bivr=767) CO2 (BEAKER) (test 20 meq/L 22-29 kvif=051) BLOOD UREA NITROGEN 18 mg/dL 7-21 (BEAKER) (test ejdv=052) CREATININE (BEAKER) (test 1.54 mg/dL 0.57-1.25 grko=482) GLUCOSE RANDOM (BEAKER) 70 mg/dL 70-105 (test oaem=078) CALCIUM (BEAKER) (test 8.2 mg/dL 8.4-10.2 mxzt=160) EGFR (BEAKER) (test 48 mL/min/1.73 sq m ESTIMATED GFR IS NOT xvyh=2294) ACCURATE CREATININE CLEARANCE IN PREDICTING GLOMERULAR FILTRATION RATE. ESTIMATED GFR IS NOT APPLICABLE FOR DIALYSIS PATIENTS. Specimen moderately ictericCBC W/PLT COUNT & AUTO [id number] 08: 06:00 Test Item Value Reference Range Comments WHITE BLOOD CELL COUNT (BEAKER) (test jiqm=883) 3.4 K/ L 4.0-10.0 RED BLOOD CELL COUNT (BEAKER) (test yuwb=997) 2.03 M/ L 4.20-5.80 HEMOGLOBIN (BEAKER) (test eiyk=572) 7.3 GM/DL 13.0-16.8 HEMATOCRIT (BEAKER) (test ehin=079) 21.6 % 40.0-50.0 MEAN CORPUSCULAR VOLUME (BEAKER) (test kias=883) 106.0 fL 82.0-98.0 MEAN CORPUSCULAR HEMOGLOBIN (BEAKER) (test 35.8 pg 27.0-33.0 hzvz=824) MEAN CORPUSCULAR HEMOGLOBIN CONC (BEAKER) (test 33.7 GM/DL 32.0-36.0 lssf=365) RED CELL DISTRIBUTION WIDTH (BEAKER) (test 13.5 % 10.3-14.2 qmbl=872) PLATELET COUNT (BEAKER) (test txex=877) 82 K/CU MM 150-430 MEAN PLATELET VOLUME (BEAKER) (test xoxa=197) 6.7 fL 6.5-10.5 NUCLEATED RED BLOOD CELLS (BEAKER) (test 0 /100 WBC 0-0 wyub=617) NEUTROPHILS RELATIVE PERCENT (BEAKER) (test 50 % eboe=002) LYMPHOCYTES RELATIVE PERCENT (BEAKER) (test 25 % upkq=517) MONOCYTES RELATIVE PERCENT (BEAKER) (test 19 % ylra=474) EOSINOPHILS RELATIVE PERCENT (BEAKER) (test 5 % ilcy=007) BASOPHILS RELATIVE PERCENT (BEAKER) (test 1 % eunz=012) NEUTROPHILS ABSOLUTE COUNT (BEAKER) (test 1.69 K/ L 1.80-8.00 bfoi=358) LYMPHOCYTES ABSOLUTE COUNT (BEAKER) (test 0.83 K/ L 1.48-4.50 akdl=674) MONOCYTES ABSOLUTE COUNT (BEAKER) (test xvqj=961) 0.65 K/ L 0.00-1.30 EOSINOPHILS ABSOLUTE COUNT (BEAKER) (test 0.17 K/ L 0.00-0.50 njwp=466) BASOPHILS ABSOLUTE COUNT (BEAKER) (test nkpk=087) 0.04 K/ L 0.00-0.20 0.00PROTHROMBIN [id number] 08:01:00 Test Item Value Reference Range Comments PROTIME (BEAKER) (test zlks=098) 27.6 seconds 11.7-14.7 INR (BEAKER) (test abds=807) 2.6 <=5.9 RECOMMENDED COUMADIN/WARFARIN INR THERAPY RANGESSTANDARD DOSE: 2.0 - 3.0 Includes: PROPHYLAXIS forvenous thrombosis, systemic embolization; TREATMENT for venous thrombosis and/or pulmonary embolus.HIGH RISK: Target INR is 2.5-3.5 for patients with mechanical heart valves.CALCIUM, [id number] 07:58:00 Test Item Value Reference Range Comments CALCIUM IONIZED (BEAKER) (test kvpe=299) 1.00 mmol/L 1.12-1.27 PH, BLOOD (BEAKER) (test rgls=5900) 7.53 URINALYSIS W/ [id number] 18:42:00 Test Item Value Reference Range Comments COLOR (BEAKER) (test hpon=693) Yellow CLARITY (BEAKER) (test pzus=148) Clear SPECIFIC GRAVITY UA (BEAKER) (test 1.009 1.001-1.035 gmhx=037) PH UA (BEAKER) (test ftwg=878) 7.5 5.0-8.0 PROTEIN UA (BEAKER) (test nshg=333) Negative Negative GLUCOSE UA (BEAKER) (test ykhz=256) Negative Negative KETONES UA (BEAKER) (test wqqt=587) Negative Negative BILIRUBIN UA (BEAKER) (test yaow=849) Negative Negative BLOOD UA (BEAKER) (test nsvd=833) Negative Negative NITRITE UA (BEAKER) (test pnpb=477) Negative Negative LEUKOCYTE ESTERASE UA (BEAKER) (test Negative Negative doxr=186) UROBILINOGEN UA (BEAKER) (test xeox=814) 3.0 mg/dL 0.2-1.0 RBC UA (BEAKER) (test qubq=162) 6 /HPF WBC UA (BEAKER) (test hcod=241) 1 /HPF SOURCE(BEAKER) (test upxt=1338) Urine, Clean Catch PROTHROMBIN [id number] 15:13:00 Test Item Value Reference Range Comments PROTIME (BEAKER) (test cibh=070) 31.4 seconds 11.7-14.7 INR (BEAKER) (test meli=195) 3.0 <=5.9 RECOMMENDED COUMADIN/WARFARIN INR THERAPY RANGESSTANDARD DOSE: 2.0 - 3.0 Includes: PROPHYLAXIS forvenous thrombosis, systemic embolization; TREATMENT for venous thrombosis and/or pulmonary embolus.HIGH RISK: Target INR is 2.5-3.5 for patients with mechanical heart valves.Draw after vitamin K administrationCBC W/PLT COUNT & AUTO [id number] 07:02:00 Test Item Value Reference Range Comments WHITE BLOOD CELL COUNT (BEAKER) (test dsht=186) 3.0 K/ L 4.0-10.0 RED BLOOD CELL COUNT (BEAKER) (test nont=791) 2.21 M/ L 4.20-5.80 HEMOGLOBIN (BEAKER) (test hpkv=762) 7.5 GM/DL 13.0-16.8 HEMATOCRIT (BEAKER) (test hfux=831) 23.5 % 40.0-50.0 MEAN CORPUSCULAR VOLUME (BEAKER) (test lwgc=551) 106.0 fL 82.0-98.0 MEAN CORPUSCULAR HEMOGLOBIN (BEAKER) (test 34.0 pg 27.0-33.0 etmd=544) MEAN CORPUSCULAR HEMOGLOBIN CONC (BEAKER) (test 32.0 GM/DL 32.0-36.0 vxgc=466) RED CELL DISTRIBUTION WIDTH (BEAKER) (test 13.0 % 10.3-14.2 rfty=308) PLATELET COUNT (BEAKER) (test fkzc=768) 81 K/CU MM 150-430 MEAN PLATELET VOLUME (BEAKER) (test hizi=169) 6.3 fL 6.5-10.5 NUCLEATED RED BLOOD CELLS (BEAKER) (test 0 /100 WBC 0-0 acyj=322) NEUTROPHILS RELATIVE PERCENT (BEAKER) (test 52 % abfy=034) LYMPHOCYTES RELATIVE PERCENT (BEAKER) (test 24 % oobe=998) MONOCYTES RELATIVE PERCENT (BEAKER) (test 20 % lixg=140) EOSINOPHILS RELATIVE PERCENT (BEAKER) (test 3 % fvui=097) BASOPHILS RELATIVE PERCENT (BEAKER) (test 1 % ujaj=685) NEUTROPHILS ABSOLUTE COUNT (BEAKER) (test 1.53 K/ L 1.80-8.00 aswr=800) LYMPHOCYTES ABSOLUTE COUNT (BEAKER) (test 0.71 K/ L 1.48-4.50 ofnw=765) MONOCYTES ABSOLUTE COUNT (BEAKER) (test meiv=052) 0.60 K/ L 0.00-1.30 EOSINOPHILS ABSOLUTE COUNT (BEAKER) (test 0.10 K/ L 0.00-0.50 vrjm=365) BASOPHILS ABSOLUTE COUNT (BEAKER) (test npgs=407) 0.03 K/ L 0.00-0.20 0.00BASIC METABOLIC [id number] 06:29:00 Test Item Value Reference Range Comments SODIUM (BEAKER) (test 135 meq/L 136-145 gqnd=101) POTASSIUM (BEAKER) (test 4.0 meq/L 3.5-5.1 hbfm=805) CHLORIDE (BEAKER) (test 106 meq/L 98-107 drws=337) CO2 (BEAKER) (test 22 meq/L 22-29 dmfe=319) BLOOD UREA NITROGEN 17 mg/dL 7-21 (BEAKER) (test xbnv=769) CREATININE (BEAKER) (test 1.46 mg/dL 0.57-1.25 rvxd=676) GLUCOSE RANDOM (BEAKER) 75 mg/dL 70-105 (test kscv=996) CALCIUM (BEAKER) (test 8.0 mg/dL 8.4-10.2 ysvp=982) EGFR (BEAKER) (test 51 mL/min/1.73 sq m ESTIMATED GFR IS NOT wgvt=2608) ACCURATE CREATININE CLEARANCE IN PREDICTING GLOMERULAR FILTRATION RATE. ESTIMATED GFR IS NOT APPLICABLE FOR DIALYSIS PATIENTS. Specimen moderately ictericHEPATIC FUNCTION [id number] 06:29:00 Test Item Value Reference Range Comments TOTAL PROTEIN (BEAKER) (test uhrq=220) 5.9 gm/dL 6.0-8.3 ALBUMIN (BEAKER) (test tuyd=2048) 3.0 g/dL 3.5-5.0 BILIRUBIN TOTAL (BEAKER) (test sxtm=422) 5.4 mg/dL 0.2-1.2 BILIRUBIN DIRECT (BEAKER) (test ydbt=379) 2.7 mg/dL 0.1-0.5 ALKALINE PHOSPHATASE (BEAKER) (test ktvl=281) 65 U/L 40-150 AST (SGOT) (BEAKER) (test djea=803) 27 U/L 5-34 ALT (SGPT) (BEAKER) (test sldz=278) 7 U/L 6-55 Specimen moderately ictericPROTHROMBIN [id number] 06:23:00 Test Item Value Reference Range Comments PROTIME (BEAKER) (test mbss=103) 31.2 seconds 11.7-14.7 INR (BEAKER) (test nudr=412) 3.0 <=5.9 RECOMMENDED COUMADIN/WARFARIN INR THERAPY RANGESSTANDARD DOSE: 2.0 - 3.0 Includes: PROPHYLAXIS forvenous thrombosis, systemic embolization; TREATMENT for venous thrombosis and/or pulmonary embolus.HIGH RISK: Target INR is 2.5-3.5 for patients with mechanical heart valves.CBC W/PLT COUNT & AUTO [id number] 06:26:00 Test Item Value Reference Range Comments WHITE BLOOD CELL COUNT (BEAKER) (test wdsi=579) 3.0 K/ L 4.0-10.0 RED BLOOD CELL COUNT (BEAKER) (test gnhe=129) 2.16 M/ L 4.20-5.80 HEMOGLOBIN (BEAKER) (test znon=778) 7.4 GM/DL 13.0-16.8 HEMATOCRIT (BEAKER) (test vanx=981) 23.1 % 40.0-50.0 MEAN CORPUSCULAR VOLUME (BEAKER) (test stae=942) 107.0 fL 82.0-98.0 MEAN CORPUSCULAR HEMOGLOBIN (BEAKER) (test 34.4 pg 27.0-33.0 eekb=122) MEAN CORPUSCULAR HEMOGLOBIN CONC (BEAKER) (test 32.1 GM/DL 32.0-36.0 scar=459) RED CELL DISTRIBUTION WIDTH (BEAKER) (test 13.1 % 10.3-14.2 mtck=240) PLATELET COUNT (BEAKER) (test obvz=828) 72 K/CU MM 150-430 MEAN PLATELET VOLUME (BEAKER) (test sjci=710) 6.1 fL 6.5-10.5 NUCLEATED RED BLOOD CELLS (BEAKER) (test 0 /100 WBC 0-0 opsr=699) NEUTROPHILS RELATIVE PERCENT (BEAKER) (test 58 % kyne=386) LYMPHOCYTES RELATIVE PERCENT (BEAKER) (test 21 % ofrz=004) MONOCYTES RELATIVE PERCENT (BEAKER) (test 15 % trzc=545) EOSINOPHILS RELATIVE PERCENT (BEAKER) (test 4 % yywm=646) BASOPHILS RELATIVE PERCENT (BEAKER) (test 1 % khvg=257) NEUTROPHILS ABSOLUTE COUNT (BEAKER) (test 1.73 K/ L 1.80-8.00 pvzn=850) LYMPHOCYTES ABSOLUTE COUNT (BEAKER) (test 0.64 K/ L 1.48-4.50 mrpu=935) MONOCYTES ABSOLUTE COUNT (BEAKER) (test mnjh=952) 0.45 K/ L 0.00-1.30 EOSINOPHILS ABSOLUTE COUNT (BEAKER) (test 0.13 K/ L 0.00-0.50 lkeu=874) BASOPHILS ABSOLUTE COUNT (BEAKER) (test cgpb=924) 0.02 K/ L 0.00-0.20 0.00BASIC METABOLIC [id number] 06:24:00 Test Item Value Reference Range Comments SODIUM (BEAKER) (test 134 meq/L 136-145 qlla=514) POTASSIUM (BEAKER) (test 3.7 meq/L 3.5-5.1 tukk=610) CHLORIDE (BEAKER) (test 105 meq/L 98-107 urvw=071) CO2 (BEAKER) (test 21 meq/L 22-29 azom=650) BLOOD UREA NITROGEN 18 mg/dL 7-21 (BEAKER) (test prut=639) CREATININE (BEAKER) (test 1.53 mg/dL 0.57-1.25 jvcp=769) GLUCOSE RANDOM (BEAKER) 103 mg/dL 70-105 (test cign=848) CALCIUM (BEAKER) (test 7.6 mg/dL 8.4-10.2 upqs=786) EGFR (BEAKER) (test 48 mL/min/1.73 sq m ESTIMATED GFR IS NOT umqz=7401) ACCURATE CREATININE CLEARANCE IN PREDICTING GLOMERULAR FILTRATION RATE. ESTIMATED GFR IS NOT APPLICABLE FOR DIALYSIS PATIENTS. Specimen moderately ictericHEPATIC FUNCTION [id number] 06:19:00 Test Item Value Reference Range Comments TOTAL PROTEIN (BEAKER) (test xtmr=648) 5.6 gm/dL 6.0-8.3 ALBUMIN (BEAKER) (test mnku=8333) 2.4 g/dL 3.5-5.0 BILIRUBIN TOTAL (BEAKER) (test tfpn=336) 4.8 mg/dL 0.2-1.2 BILIRUBIN DIRECT (BEAKER) (test yidc=561) 2.6 mg/dL 0.1-0.5 ALKALINE PHOSPHATASE (BEAKER) (test bati=345) 70 U/L 40-150 AST (SGOT) (BEAKER) (test wbek=169) 28 U/L 5-34 ALT (SGPT) (BEAKER) (test acsu=464) 11 U/L 6-55 Specimen moderately ictericPROTHROMBIN [id number] 06:00:00 Test Item Value Reference Range Comments PROTIME (BEAKER) (test ilmb=489) 36.7 seconds 11.7-14.7 INR (BEAKER) (test nako=236) 3.7 <=5.9 RECOMMENDED COUMADIN/WARFARIN INR THERAPY RANGESSTANDARD DOSE: 2.0 - 3.0 Includes: PROPHYLAXIS forvenous thrombosis, systemic embolization; TREATMENT for venous thrombosis and/or pulmonary embolus.HIGH RISK: Target INR is 2.5-3.5 for patients with mechanical heart valves.BODY FLUID CULTURE + GRAM [id number] 00:51:00 Test Item Value Reference Range Comments CULTURE (BEAKER) (test tcjb=0108) No growth GRAM STAIN RESULT (BEAKER) (test 3+ WBCs bgcx=1895) GRAM STAIN RESULT (BEAKER) (test No organisms seen kujl=12210) BLOOD [id number] 17:08:00 Test Item Value Reference Range Comments CULTURE (BEAKER) (test itet=2746) No growth in 5 days BLOOD [id number] 17:06:00 Test Item Value Reference Range Comments CULTURE (BEAKER) (test vycy=6464) No growth in 5 days CBC W/PLT COUNT & AUTO [id number] 07:05:00 Test Item Value Reference Range Comments WHITE BLOOD CELL COUNT (BEAKER) (test zlol=788) 3.5 K/ L 4.0-10.0 RED BLOOD CELL COUNT (BEAKER) (test fgms=105) 2.16 M/ L 4.20-5.80 HEMOGLOBIN (BEAKER) (test fgix=189) 7.8 GM/DL 13.0-16.8 HEMATOCRIT (BEAKER) (test zbxx=749) 23.9 % 40.0-50.0 MEAN CORPUSCULAR VOLUME (BEAKER) (test nlcm=208) 111.0 fL 82.0-98.0 MEAN CORPUSCULAR HEMOGLOBIN (BEAKER) (test 36.3 pg 27.0-33.0 azxi=363) MEAN CORPUSCULAR HEMOGLOBIN CONC (BEAKER) (test 32.8 GM/DL 32.0-36.0 qjye=559) RED CELL DISTRIBUTION WIDTH (BEAKER) (test 13.9 % 10.3-14.2 ukba=458) PLATELET COUNT (BEAKER) (test kdwu=979) 72 K/CU MM 150-430 MEAN PLATELET VOLUME (BEAKER) (test uabi=620) 6.4 fL 6.5-10.5 NUCLEATED RED BLOOD CELLS (BEAKER) (test 0 /100 WBC 0-0 mcza=169) NEUTROPHILS RELATIVE PERCENT (BEAKER) (test 51 % nhch=909) LYMPHOCYTES RELATIVE PERCENT (BEAKER) (test 25 % slve=204) MONOCYTES RELATIVE PERCENT (BEAKER) (test 18 % sdtn=686) EOSINOPHILS RELATIVE PERCENT (BEAKER) (test 6 % kwfr=264) BASOPHILS RELATIVE PERCENT (BEAKER) (test 0 % afjn=199) NEUTROPHILS ABSOLUTE COUNT (BEAKER) (test 1.77 K/ L 1.80-8.00 ygto=148) LYMPHOCYTES ABSOLUTE COUNT (BEAKER) (test 0.87 K/ L 1.48-4.50 mnxq=895) MONOCYTES ABSOLUTE COUNT (BEAKER) (test mzoi=761) 0.62 K/ L 0.00-1.30 EOSINOPHILS ABSOLUTE COUNT (BEAKER) (test 0.22 K/ L 0.00-0.50 mnqh=795) BASOPHILS ABSOLUTE COUNT (BEAKER) (test zack=121) 0.01 K/ L 0.00-0.20 0.00BASI METABOLIC [id number] 06:54:00 Test Item Value Reference Range Comments SODIUM (BEAKER) (test 137 meq/L 136-145 tecd=971) POTASSIUM (BEAKER) (test 3.8 meq/L 3.5-5.1 gigb=252) CHLORIDE (BEAKER) (test 109 meq/L 98-107 ulga=070) CO2 (BEAKER) (test 21 meq/L 22-29 cfgx=811) BLOOD UREA NITROGEN 17 mg/dL 7-21 (BEAKER) (test gxgh=345) CREATININE (BEAKER) (test 1.60 mg/dL 0.57-1.25 hgfz=703) GLUCOSE RANDOM (BEAKER) 76 mg/dL 70-105 (test nsyl=697) CALCIUM (BEAKER) (test 7.5 mg/dL 8.4-10.2 xmrz=351) EGFR (BEAKER) (test 46 mL/min/1.73 sq m ESTIMATED GFR IS NOT cwdo=9939) ACCURATE CREATININE CLEARANCE IN PREDICTING GLOMERULAR FILTRATION RATE. ESTIMATED GFR IS NOT APPLICABLE FOR DIALYSIS PATIENTS. Specimen moderately ictericHEPATIC FUNCTION [id number] 06:53:00 Test Item Value Reference Range Comments TOTAL PROTEIN (BEAKER) (test altn=352) 5.6 gm/dL 6.0-8.3 ALBUMIN (BEAKER) (test mdvl=4652) 2.4 g/dL 3.5-5.0 BILIRUBIN TOTAL (BEAKER) (test mazk=866) 4.5 mg/dL 0.2-1.2 BILIRUBIN DIRECT (BEAKER) (test vpek=737) 2.7 mg/dL 0.1-0.5 ALKALINE PHOSPHATASE (BEAKER) (test eqpy=265) 74 U/L 40-150 AST (SGOT) (BEAKER) (test gsnb=093) 36 U/L 5-34 ALT (SGPT) (BEAKER) (test hpeg=083) 13 U/L 6-55 Specimen moderately ictericB-TYPE NATRIURETIC FACTOR (BNP)2017-02-08 06:52:00 Test Item Value Reference Range Comments B-TYPE NATRIURETIC PEPTIDE (BEAKER) (test 446 pg/mL 0-100 bupl=078) PROTHROMBIN [id number] 06:36:00 Test Item Value Reference Range Comments PROTIME (BEAKER) (test mxgc=179) 28.7 seconds 11.7-14.7 INR (BEAKER) (test diwv=370) 2.7 <=5.9 RECOMMENDED COUMADIN/WARFARIN INR THERAPY RANGESSTANDARD DOSE: 2.0 - 3.0 Includes: PROPHYLAXIS forvenous thrombosis, systemic embolization; TREATMENT for venous thrombosis and/or pulmonary embolus.HIGH RISK: Target INR is 2.5-3.5 for patients with mechanical heart valves.EOSINOPHIL SMEAR, [id number] 21: 44:00 Test Item Value Reference Range Comments EOSINOPHIL SMEAR, URINE (BEAKER) (test No EOS seen No EOS seen tsdv=1217) CREATININE, RANDOM [id number] 18:02:00 Test Item Value Reference Range Comments CREATININE URINE (BEAKER) (test nuda=288) 96.3 mg/dL Reference Range: No NormalsSODIUM, RANDOM [id number] 18:02:00 Test Item Value Reference Range Comments SODIUM URINE (BEAKER) (test xrcq=573) 58 meq/L Reference Range: No NormalsURINALYSIS W/ [id number] 17:33:00 Test Item Value Reference Range Comments COLOR (BEAKER) (test qxkb=366) Yellow CLARITY (BEAKER) (test rwrt=305) Clear SPECIFIC GRAVITY UA (BEAKER) (test ezjm=295) 1.009 1.001-1.035 PH UA (BEAKER) (test ttwx=443) 6.0 5.0-8.0 PROTEIN UA (BEAKER) (test bbpl=589) Negative Negative GLUCOSE UA (BEAKER) (test wzoj=594) Negative Negative KETONES UA (BEAKER) (test gglm=038) Negative Negative BILIRUBIN UA (BEAKER) (test edis=958) Negative Negative BLOOD UA (BEAKER) (test ebxm=547) Negative Negative NITRITE UA (BEAKER) (test agck=405) Negative Negative LEUKOCYTE ESTERASE UA (BEAKER) (test ytkk=117) Negative Negative UROBILINOGEN UA (BEAKER) (test zbxh=553) 4.0 mg/dL 0.2-1.0 RBC UA (BEAKER) (test frvc=302) < /HPF WBC UA (BEAKER) (test rner=242) 2 /HPF BACTERIA (BEAKER) (test hkbq=168) Rare SOURCE(BEAKER) (test pmyh=3280) CBC W/PLT COUNT & AUTO [id number] 06:53:00 Test Item Value Reference Range Comments WHITE BLOOD CELL COUNT (BEAKER) (test qglq=271) 3.5 K/ L 4.0-10.0 RED BLOOD CELL COUNT (BEAKER) (test ybli=021) 2.17 M/ L 4.20-5.80 HEMOGLOBIN (BEAKER) (test xlvo=751) 7.9 GM/DL 13.0-16.8 HEMATOCRIT (BEAKER) (test ckzu=038) 23.9 % 40.0-50.0 MEAN CORPUSCULAR VOLUME (BEAKER) (test ywrr=622) 110.0 fL 82.0-98.0 MEAN CORPUSCULAR HEMOGLOBIN (BEAKER) (test 36.1 pg 27.0-33.0 vnpo=960) MEAN CORPUSCULAR HEMOGLOBIN CONC (BEAKER) (test 32.9 GM/DL 32.0-36.0 ukzd=865) RED CELL DISTRIBUTION WIDTH (BEAKER) (test 14.0 % 10.3-14.2 cujq=353) PLATELET COUNT (BEAKER) (test hiku=317) 77 K/CU MM 150-430 MEAN PLATELET VOLUME (BEAKER) (test ctlk=780) 6.1 fL 6.5-10.5 NUCLEATED RED BLOOD CELLS (BEAKER) (test 0 /100 WBC 0-0 flcm=243) NEUTROPHILS RELATIVE PERCENT (BEAKER) (test 56 % gxxe=493) LYMPHOCYTES RELATIVE PERCENT (BEAKER) (test 20 % ukbp=863) MONOCYTES RELATIVE PERCENT (BEAKER) (test 18 % ifdd=474) EOSINOPHILS RELATIVE PERCENT (BEAKER) (test 6 % aeys=059) BASOPHILS RELATIVE PERCENT (BEAKER) (test 1 % bewn=253) NEUTROPHILS ABSOLUTE COUNT (BEAKER) (test 1.95 K/ L 1.80-8.00 mowk=021) LYMPHOCYTES ABSOLUTE COUNT (BEAKER) (test 0.69 K/ L 1.48-4.50 aqdr=619) MONOCYTES ABSOLUTE COUNT (BEAKER) (test baqp=313) 0.62 K/ L 0.00-1.30 EOSINOPHILS ABSOLUTE COUNT (BEAKER) (test 0.20 K/ L 0.00-0.50 kztm=357) BASOPHILS ABSOLUTE COUNT (BEAKER) (test smvw=071) 0.03 K/ L 0.00-0.20 0.00BASI METABOLIC [id number] 06:45:00 Test Item Value Reference Range Comments SODIUM (BEAKER) (test 134 meq/L 136-145 ympq=093) POTASSIUM (BEAKER) (test 3.6 meq/L 3.5-5.1 rvsd=280) CHLORIDE (BEAKER) (test 106 meq/L 98-107 frtf=322) CO2 (BEAKER) (test 21 meq/L 22-29 bfuo=935) BLOOD UREA NITROGEN 14 mg/dL 7-21 (BEAKER) (test elya=950) CREATININE (BEAKER) (test 1.33 mg/dL 0.57-1.25 njrn=658) GLUCOSE RANDOM (BEAKER) 71 mg/dL 70-105 (test slqg=415) CALCIUM (BEAKER) (test 7.6 mg/dL 8.4-10.2 ujad=526) EGFR (BEAKER) (test 57 mL/min/1.73 sq m ESTIMATED GFR IS NOT tcma=8628) ACCURATE CREATININE CLEARANCE IN PREDICTING GLOMERULAR FILTRATION RATE. ESTIMATED GFR IS NOT APPLICABLE FOR DIALYSIS PATIENTS. Specimen moderately ictericHEPATIC FUNCTION [id number] 06:40:00 Test Item Value Reference Range Comments TOTAL PROTEIN (BEAKER) (test cxjw=652) 5.6 gm/dL 6.0-8.3 ALBUMIN (BEAKER) (test rxfw=3105) 2.1 g/dL 3.5-5.0 BILIRUBIN TOTAL (BEAKER) (test jgqh=707) 4.4 mg/dL 0.2-1.2 BILIRUBIN DIRECT (BEAKER) (test sfvm=908) 2.9 mg/dL 0.1-0.5 ALKALINE PHOSPHATASE (BEAKER) (test yepi=647) 86 U/L 40-150 AST (SGOT) (BEAKER) (test ynya=898) 45 U/L 5-34 ALT (SGPT) (BEAKER) (test wuvj=693) 13 U/L 6-55 Specimen moderately ictericPROTHROMBIN [id number] 06:05:00 Test Item Value Reference Range Comments PROTIME (BEAKER) (test oxxb=500) 29.4 seconds 11.7-14.7 INR (BEAKER) (test nzpf=142) 2.8 <=5.9 RECOMMENDED COUMADIN/WARFARIN INR THERAPY RANGESSTANDARD DOSE: 2.0 - 3.0 Includes: PROPHYLAXIS forvenous thrombosis, systemic embolization; TREATMENT for venous thrombosis and/or pulmonary embolus.HIGH RISK: Target INR is 2.5-3.5 for patients with mechanical heart valves.BODY FLUID CELL COUNT WITH [id number] 20:51:00 Test Item Value Reference Range Comments APPEARANCE FLUID (BEAKER) (test ggao=801) Slightly Hazy Clear COLOR FLUID (BEAKER) (test kktp=071) Yellow Colorless, Straw RBC FLUID (BEAKER) (test owpt=780) 545 /cu mm <=1 ADJUSTED WBC FLUID (BEAKER) (test gpzm=8895) 104 /cu mm <=5 LINING CELLS (BEAKER) (test zrvl=2175) 1 /cu mm <=1 NEUTROPHILS FLUID (BEAKER) (test ntyd=4152) 3 % LYMPHS FLUID (BEAKER) (test kjtb=566) 13 % MONO/MACROPHAGE FLUID (BEAKER) (test 84 % whrv=763) EOSINOPHILS FLUID (BEAKER) (test juto=029) 0 % BASO FLUID (BEAKER) (test sagv=135) 0 % CONTAINER BODY FLUID (BEAKER) (test EDTA Tube vgqj=0737) POCT-GLUCOSE [id number] 18:48:00 Test Item Value Reference Range Comments POC-GLUCOSE METER (BEAKER) 105 mg/dL 70-110 TESTED AT [facility] [address] [facility] (test buor=0518) [facility] [address] BASIC METABOLIC [id number] 05:45:00 Test Item Value Reference Range Comments SODIUM (BEAKER) (test 133 meq/L 136-145 rpep=703) POTASSIUM (BEAKER) (test 4.3 meq/L 3.5-5.1 Specimen moderately zdgs=238) hemolyzed CHLORIDE (BEAKER) (test 107 meq/L 98-107 yedd=727) CO2 (BEAKER) (test 19 meq/L 22-29 uedk=280) BLOOD UREA NITROGEN 10 mg/dL 7-21 (BEAKER) (test dhbm=852) CREATININE (BEAKER) (test 0.86 mg/dL 0.57-1.25 Specimen moderately totw=735) hemolyzed GLUCOSE RANDOM (BEAKER) 68 mg/dL 70-105 (test lgzx=637) CALCIUM (BEAKER) (test 7.5 mg/dL 8.4-10.2 rgln=228) EGFR (BEAKER) (test 94 mL/min/1.73 sq m ESTIMATED GFR IS NOT amju=1864) ACCURATE CREATININE CLEARANCE IN PREDICTING GLOMERULAR FILTRATION RATE. ESTIMATED GFR IS NOT APPLICABLE FOR DIALYSIS PATIENTS. Specimen slightly ictericHEPATIC FUNCTION [id number] 05:45:00 Test Item Value Reference Range Comments TOTAL PROTEIN (BEAKER) (test 5.9 gm/dL 6.0-8.3 Specimen moderately hemolyzed xxvv=684) ALBUMIN (BEAKER) (test 1.9 g/dL 3.5-5.0 Specimen moderately hemolyzed qtil=9683) BILIRUBIN TOTAL (BEAKER) (test 4.4 mg/dL 0.2-1.2 Specimen moderately hemolyzed hkzo=031) BILIRUBIN DIRECT (BEAKER) 2.6 mg/dL 0.1-0.5 Specimen moderately hemolyzed (test dhmo=601) ALKALINE PHOSPHATASE (BEAKER) 86 U/L 40-150 (test phoq=760) AST (SGOT) (BEAKER) (test 74 U/L 5-34 Specimen moderately hemolyzed pbkt=129) ALT (SGPT) (BEAKER) (test 17 U/L 6-55 Specimen moderately ktom=184) hemolyzed Specimen slightly ictericCBC W/PLT COUNT & AUTO [id number] 05:21 :00 Test Item Value Reference Range Comments WHITE BLOOD CELL COUNT (BEAKER) (test akmm=986) 3.5 K/ L 4.0-10.0 RED BLOOD CELL COUNT (BEAKER) (test pkwq=156) 2.06 M/ L 4.20-5.80 HEMOGLOBIN (BEAKER) (test nlfw=390) 7.9 GM/DL 13.0-16.8 HEMATOCRIT (BEAKER) (test wqag=970) 22.8 % 40.0-50.0 MEAN CORPUSCULAR VOLUME (BEAKER) (test ewnz=745) 110.0 fL 82.0-98.0 MEAN CORPUSCULAR HEMOGLOBIN (BEAKER) (test 38.2 pg 27.0-33.0 ipdg=182) MEAN CORPUSCULAR HEMOGLOBIN CONC (BEAKER) (test 34.6 GM/DL 32.0-36.0 swap=586) RED CELL DISTRIBUTION WIDTH (BEAKER) (test 13.5 % 10.3-14.2 flsd=912) PLATELET COUNT (BEAKER) (test tkza=704) 61 K/CU MM 150-430 MEAN PLATELET VOLUME (BEAKER) (test uthj=086) 6.8 fL 6.5-10.5 NUCLEATED RED BLOOD CELLS (BEAKER) (test 0 /100 WBC 0-0 jgdz=657) NEUTROPHILS RELATIVE PERCENT (BEAKER) (test 51 % kcaw=711) LYMPHOCYTES RELATIVE PERCENT (BEAKER) (test 24 % mriq=759) MONOCYTES RELATIVE PERCENT (BEAKER) (test 18 % hemb=808) EOSINOPHILS RELATIVE PERCENT (BEAKER) (test 7 % nxue=044) BASOPHILS RELATIVE PERCENT (BEAKER) (test 1 % kalv=998) NEUTROPHILS ABSOLUTE COUNT (BEAKER) (test 1.76 K/ L 1.80-8.00 lksw=302) LYMPHOCYTES ABSOLUTE COUNT (BEAKER) (test 0.85 K/ L 1.48-4.50 frxl=287) MONOCYTES ABSOLUTE COUNT (BEAKER) (test ozby=115) 0.61 K/ L 0.00-1.30 EOSINOPHILS ABSOLUTE COUNT (BEAKER) (test 0.23 K/ L 0.00-0.50 uago=366) BASOPHILS ABSOLUTE COUNT (BEAKER) (test idaw=255) 0.02 K/ L 0.00-0.20 0.00PROTHROMBIN [id number] 05:19:00 Test Item Value Reference Range Comments PROTIME (BEAKER) (test ebna=047) 28.2 seconds 11.7-14.7 INR (BEAKER) (test sdki=418) 2.6 <=5.9 RECOMMENDED COUMADIN/WARFARIN INR THERAPY RANGESSTANDARD DOSE: 2.0 - 3.0 Includes: PROPHYLAXIS forvenous thrombosis, systemic embolization; TREATMENT for venous thrombosis and/or pulmonary embolus.HIGH RISK: Target INR is 2.5-3.5 for patients with mechanical heart valves.BODY FLUID CULTURE + GRAM [id number] 14:14:00 Test Item Value Reference Range Comments CULTURE (BEAKER) (test mtuf=2218) No growth GRAM STAIN RESULT (BEAKER) (test 2+ WBCs suwf=4208) GRAM STAIN RESULT (BEAKER) (test No organisms seen weov=41014) CBC W/PLT COUNT & AUTO [id number] 10:28:00 Test Item Value Reference Range Comments WHITE BLOOD CELL COUNT (BEAKER) (test ewlo=787) 3.6 K/ L 4.0-10.0 RED BLOOD CELL COUNT (BEAKER) (test rxdy=199) 2.17 M/ L 4.20-5.80 HEMOGLOBIN (BEAKER) (test ruux=268) 7.7 GM/DL 13.0-16.8 HEMATOCRIT (BEAKER) (test hybi=727) 23.8 % 40.0-50.0 MEAN CORPUSCULAR VOLUME (BEAKER) (test thpg=773) 110.0 fL 82.0-98.0 MEAN CORPUSCULAR HEMOGLOBIN (BEAKER) (test 35.3 pg 27.0-33.0 epyw=746) MEAN CORPUSCULAR HEMOGLOBIN CONC (BEAKER) (test 32.1 GM/DL 32.0-36.0 qlmp=219) RED CELL DISTRIBUTION WIDTH (BEAKER) (test 13.7 % 10.3-14.2 radl=270) PLATELET COUNT (BEAKER) (test mgsr=345) 62 K/CU MM 150-430 MEAN PLATELET VOLUME (BEAKER) (test roon=360) 6.5 fL 6.5-10.5 NUCLEATED RED BLOOD CELLS (BEAKER) (test 0 /100 WBC 0-0 cbhg=521) NEUTROPHILS RELATIVE PERCENT (BEAKER) (test 58 % hggl=378) LYMPHOCYTES RELATIVE PERCENT (BEAKER) (test 18 % exua=136) MONOCYTES RELATIVE PERCENT (BEAKER) (test 17 % ibju=600) EOSINOPHILS RELATIVE PERCENT (BEAKER) (test 8 % lokz=617) BASOPHILS RELATIVE PERCENT (BEAKER) (test 0 % reyj=613) NEUTROPHILS ABSOLUTE COUNT (BEAKER) (test 2.10 K/ L 1.80-8.00 tzjv=966) LYMPHOCYTES ABSOLUTE COUNT (BEAKER) (test 0.63 K/ L 1.48-4.50 kkut=814) MONOCYTES ABSOLUTE COUNT (BEAKER) (test cmbg=289) 0.59 K/ L 0.00-1.30 EOSINOPHILS ABSOLUTE COUNT (BEAKER) (test 0.28 K/ L 0.00-0.50 vtyy=635) BASOPHILS ABSOLUTE COUNT (BEAKER) (test xqrp=529) 0.00 K/ L 0.00-0.20 [id number] 10:16:00 Test Item Value Reference Range Comments PROCALCITONIN (BEAKER) (test upeg=3137) < ng/mL <0.05 SEPSIS RISK (ng/mL)Low: 0.05-0.50Intermediate: 0.51-2.00High: & gt;=2.01HEPATIC FUNCTION [id number] 06:26:00 Test Item Value Reference Range Comments TOTAL PROTEIN (BEAKER) (test jzqb=524) 5.6 gm/dL 6.0-8.3 ALBUMIN (BEAKER) (test tehy=6929) 1.9 g/dL 3.5-5.0 BILIRUBIN TOTAL (BEAKER) (test stbo=989) 4.7 mg/dL 0.2-1.2 BILIRUBIN DIRECT (BEAKER) (test uvqb=575) 2.9 mg/dL 0.1-0.5 ALKALINE PHOSPHATASE (BEAKER) (test edpt=788) 85 U/L 40-150 AST (SGOT) (BEAKER) (test liav=893) 53 U/L 5-34 ALT (SGPT) (BEAKER) (test phrb=516) 14 U/L 6-55 Specimen moderately ictericBASIC METABOLIC [id number] 06:26:00 Test Item Value Reference Range Comments SODIUM (BEAKER) (test 134 meq/L 136-145 kekq=847) POTASSIUM (BEAKER) (test 3.8 meq/L 3.5-5.1 txeb=422) CHLORIDE (BEAKER) (test 107 meq/L 98-107 kqkl=381) CO2 (BEAKER) (test 19 meq/L 22-29 vgej=657) BLOOD UREA NITROGEN 8 mg/dL 7-21 (BEAKER) (test sire=371) CREATININE (BEAKER) (test 0.73 mg/dL 0.57-1.25 ireb=535) GLUCOSE RANDOM (BEAKER) 73 mg/dL 70-105 (test hifq=559) CALCIUM (BEAKER) (test 7.2 mg/dL 8.4-10.2 xbwk=982) EGFR (BEAKER) (test 113 mL/min/1.73 sq m ESTIMATED GFR IS NOT sopm=6737) ACCURATE CREATININE CLEARANCE IN PREDICTING GLOMERULAR FILTRATION RATE. ESTIMATED GFR IS NOT APPLICABLE FOR DIALYSIS PATIENTS. Specimen moderately ictericPROTHROMBIN [id number] 06:05:00 Test Item Value Reference Range Comments PROTIME (BEAKER) (test nmpx=584) 30.9 seconds 11.7-14.7 INR (BEAKER) (test rinc=819) 3.0 <=5.9 RECOMMENDED COUMADIN/WARFARIN INR THERAPY RANGESSTANDARD DOSE: 2.0 - 3.0 Includes: PROPHYLAXIS forvenous thrombosis, systemic embolization; TREATMENT for venous thrombosis and/or pulmonary embolus.HIGH RISK: Target INR is 2.5-3.5 for patients with mechanical heart valves.[id number] 05:54:00 Test Item Value Reference Range Comments PREALBUMIN (BEAKER) (test bxez=964) < mg/dL 14-45 URINE [id number] 12:11:00 Test Item Value Reference Range Comments CULTURE (BEAKER) (test hmdy=0146) No growth VANCOMYCIN LEVEL, [id number] 09:26:00 Test Item Value Reference Range Comments VANCOMYCIN TROUGH (BEAKER) (test lhnu=235) 15.3 ug/mL 10.0-20.0 HEPATIC FUNCTION [id number] 06:17:00 Test Item Value Reference Range Comments TOTAL PROTEIN (BEAKER) (test cmcp=572) 5.6 gm/dL 6.0-8.3 ALBUMIN (BEAKER) (test ekfg=9958) 2.0 g/dL 3.5-5.0 BILIRUBIN TOTAL (BEAKER) (test yeko=193) 4.2 mg/dL 0.2-1.2 BILIRUBIN DIRECT (BEAKER) (test kyhe=539) 2.7 mg/dL 0.1-0.5 ALKALINE PHOSPHATASE (BEAKER) (test zaxm=942) 98 U/L 40-150 AST (SGOT) (BEAKER) (test pbwz=124) 45 U/L 5-34 ALT (SGPT) (BEAKER) (test zdgx=678) 12 U/L 6-55 Specimen slightly ictericBASIC METABOLIC [id number] 06:17:00 Test Item Value Reference Range Comments SODIUM (BEAKER) (test 133 meq/L 136-145 gvuy=681) POTASSIUM (BEAKER) (test 3.4 meq/L 3.5-5.1 xeuc=688) CHLORIDE (BEAKER) (test 107 meq/L 98-107 maah=111) CO2 (BEAKER) (test 22 meq/L 22-29 yjww=150) BLOOD UREA NITROGEN 7 mg/dL 7-21 (BEAKER) (test mvhj=787) CREATININE (BEAKER) (test 0.73 mg/dL 0.57-1.25 ircy=766) GLUCOSE RANDOM (BEAKER) 87 mg/dL 70-105 (test kiho=364) CALCIUM (BEAKER) (test 7.2 mg/dL 8.4-10.2 somv=174) EGFR (BEAKER) (test 113 mL/min/1.73 sq m ESTIMATED GFR IS NOT luvl=4656) ACCURATE CREATININE CLEARANCE IN PREDICTING GLOMERULAR FILTRATION RATE. ESTIMATED GFR IS NOT APPLICABLE FOR DIALYSIS PATIENTS. Specimen slightly ictericPROTHROMBIN [id number] 06:04:00 Test Item Value Reference Range Comments PROTIME (BEAKER) (test tkac=375) 31.7 seconds 11.7-14.7 INR (BEAKER) (test pofd=673) 3.0 <=5.9 RECOMMENDED COUMADIN/WARFARIN INR THERAPY RANGESSTANDARD DOSE: 2.0 - 3.0 Includes: PROPHYLAXIS forvenous thrombosis, systemic embolization; TREATMENT for venous thrombosis and/or pulmonary embolus.HIGH RISK: Target INR is 2.5-3.5 for patients with mechanical heart valves.VITAMIN B12 AND [id number] 19:36 :00 Test Item Value Reference Range Comments VITAMIN B12 (BEAKER) (test sadn=521) 1121 pg/mL 213-816 FOLATE (BEAKER) (test eptj=147) 18.3 ng/mL >=7.0 Effective 09/13/2014: Folate Reference Range ChangeNew: >=7.0 Previous: & gt;=5.4VITAMIN B12 AND [id number] 14:57:00 Test Item Value Reference Range Comments VITAMIN B12 (BEAKER) (test suqt=349) 1325 pg/mL 213-816 FOLATE (BEAKER) (test hhka=337) 8.3 ng/mL >=7.0 Effective 09/13/2014: Folate Reference Range ChangeNew: >=7.0 Previous: & gt;=5.4ANTI-NUCLEAR ANTIBODY (CHERYL)2017-02-03 13:56:00 Test Item Value Reference Range Comments ANTI-NUCLEAR ANTIBODY (CHERYL) (BEAKER) (test Negative Negative lopi=323) HEPATITIS B CORE ANTIBODY, [id number] 12:27:00 Test Item Value Reference Range Comments HEPATITIS B CORE TOTAL ANTIBODY (BEAKER) (test Nonreactive Nonreactive timc=121) CRYPTOCOCCAL [id number] 11:25:00 Test Item Value Reference Range Comments CRYPTOCOCCAL ANTIGEN, SERUM (BEAKER) (test Negative Negative, Interference ttnb=6954) HEPATITIS B SURFACE [id number] 11:15:00 Test Item Value Reference Range Comments HEPATITIS B SURFACE ANTIBODY (BEAKER) (test < mIU/mL <8.0 wgwh=010) HEPATITIS B SURFACE [id number] 09:53:00 Test Item Value Reference Range Comments HEPATITIS B SURFACE ANTIGEN (2) (BEAKER) (test Nonreactive Nonreactive svlc=2797) HIV-1 ANTIGEN WITH HIV-1/2 [id number] 09:53:00 Test Item Value Reference Range Comments HIV-1 ANTIGEN WITH HIV 1\\T\\2 ANTIBODY (2) Nonreactive Nonreactive (BEAKER) (test bogy=1164) HEPATIC FUNCTION [id number] 07:01:00 Test Item Value Reference Range Comments TOTAL PROTEIN (BEAKER) (test uoou=670) 5.5 gm/dL 6.0-8.3 ALBUMIN (BEAKER) (test dlwi=1560) 2.0 g/dL 3.5-5.0 BILIRUBIN TOTAL (BEAKER) (test tyig=950) 3.8 mg/dL 0.2-1.2 BILIRUBIN DIRECT (BEAKER) (test rmdh=516) 2.5 mg/dL 0.1-0.5 ALKALINE PHOSPHATASE (BEAKER) (test yzwg=242) 108 U/L 40-150 AST (SGOT) (BEAKER) (test gynz=851) 40 U/L 5-34 ALT (SGPT) (BEAKER) (test gykp=168) 10 U/L 6-55 Specimen slightly ictericBASIC METABOLIC [id number] 07:01:00 Test Item Value Reference Range Comments SODIUM (BEAKER) (test 133 meq/L 136-145 zwyk=839) POTASSIUM (BEAKER) (test 3.7 meq/L 3.5-5.1 hvfv=190) CHLORIDE (BEAKER) (test 108 meq/L 98-107 dsrf=367) CO2 (BEAKER) (test 20 meq/L 22-29 nanf=102) BLOOD UREA NITROGEN 7 mg/dL 7-21 (BEAKER) (test bcku=839) CREATININE (BEAKER) (test 0.76 mg/dL 0.57-1.25 ypeq=843) GLUCOSE RANDOM (BEAKER) 100 mg/dL 70-105 (test kcdn=743) CALCIUM (BEAKER) (test 7.3 mg/dL 8.4-10.2 yjxd=939) EGFR (BEAKER) (test 108 mL/min/1.73 sq m ESTIMATED GFR IS NOT zejh=5542) ACCURATE CREATININE CLEARANCE IN PREDICTING GLOMERULAR FILTRATION RATE. ESTIMATED GFR IS NOT APPLICABLE FOR DIALYSIS PATIENTS. Specimen slightly ictericCBC W/PLT COUNT & AUTO [id number] 06:53 :00 Test Item Value Reference Range Comments WHITE BLOOD CELL COUNT (BEAKER) (test nglf=700) 3.5 K/ L 4.0-10.0 RED BLOOD CELL COUNT (BEAKER) (test uoou=251) 1.83 M/ L 4.20-5.80 HEMOGLOBIN (BEAKER) (test xasr=915) 7.3 GM/DL 13.0-16.8 HEMATOCRIT (BEAKER) (test iyto=815) 19.9 % 40.0-50.0 MEAN CORPUSCULAR VOLUME (BEAKER) (test biqa=444) 109.0 fL 82.0-98.0 MEAN CORPUSCULAR HEMOGLOBIN (BEAKER) (test 39.9 pg 27.0-33.0 olgk=111) MEAN CORPUSCULAR HEMOGLOBIN CONC (BEAKER) (test 36.6 GM/DL 32.0-36.0 lhfo=874) RED CELL DISTRIBUTION WIDTH (BEAKER) (test 14.3 % 10.3-14.2 dcde=984) PLATELET COUNT (BEAKER) (test rfwh=060) 35 K/CU MM 150-430 MEAN PLATELET VOLUME (BEAKER) (test ayxn=378) 6.6 fL 6.5-10.5 NUCLEATED RED BLOOD CELLS (BEAKER) (test 0 /100 WBC 0-0 dufo=059) NEUTROPHILS RELATIVE PERCENT (BEAKER) (test 60 % cibq=847) LYMPHOCYTES RELATIVE PERCENT (BEAKER) (test 18 % wdxh=931) MONOCYTES RELATIVE PERCENT (BEAKER) (test 17 % jbxy=496) EOSINOPHILS RELATIVE PERCENT (BEAKER) (test 6 % nejq=966) BASOPHILS RELATIVE PERCENT (BEAKER) (test 0 % ache=395) NEUTROPHILS ABSOLUTE COUNT (BEAKER) (test 2.06 K/ L 1.80-8.00 hivi=688) LYMPHOCYTES ABSOLUTE COUNT (BEAKER) (test 0.61 K/ L 1.48-4.50 zbyx=923) MONOCYTES ABSOLUTE COUNT (BEAKER) (test dbjn=975) 0.58 K/ L 0.00-1.30 EOSINOPHILS ABSOLUTE COUNT (BEAKER) (test 0.19 K/ L 0.00-0.50 ybxe=117) BASOPHILS ABSOLUTE COUNT (BEAKER) (test bpwy=836) 0.01 K/ L 0.00-0.20 0.00PROTHROMBIN [id number] 06:39:00 Test Item Value Reference Range Comments PROTIME (BEAKER) (test zyvf=058) 30.6 seconds 11.7-14.7 INR (BEAKER) (test rxnk=047) 2.9 <=5.9 RECOMMENDED COUMADIN/WARFARIN INR THERAPY RANGESSTANDARD DOSE: 2.0 - 3.0 Includes: PROPHYLAXIS forvenous thrombosis, systemic embolization; TREATMENT for venous thrombosis and/or pulmonary embolus.HIGH RISK: Target INR is 2.5-3.5 for patients with mechanical heart valves.URINALYSIS W/ [id number] 16 :58:00 Test Item Value Reference Range Comments COLOR (BEAKER) (test bofh=252) Yellow CLARITY (BEAKER) (test aywt=373) Clear SPECIFIC GRAVITY UA (BEAKER) (test 1.025 1.001-1.035 uzdi=203) PH UA (BEAKER) (test dxpn=370) 7.0 5.0-8.0 PROTEIN UA (BEAKER) (test wpns=836) Negative Negative GLUCOSE UA (BEAKER) (test spga=882) Negative Negative KETONES UA (BEAKER) (test qzgn=365) Negative Negative BILIRUBIN UA (BEAKER) (test aiio=819) Positive Negative BLOOD UA (BEAKER) (test awbp=788) Negative Negative NITRITE UA (BEAKER) (test nsvp=601) Negative Negative LEUKOCYTE ESTERASE UA (BEAKER) (test Negative Negative zqjh=361) UROBILINOGEN UA (BEAKER) (test pdlf=404) 8.0 mg/dL 0.2-1.0 RBC UA (BEAKER) (test jroo=582) 0 /HPF WBC UA (BEAKER) (test angr=693) 2 /HPF MUCUS (BEAKER) (test ppgk=7962) Rare HYALINE CASTS (BEAKER) (test cxtg=410) 3 /LPF SOURCE(BEAKER) (test pzya=2905) Urine, Clean Catch [id number] 13:32:00 Test Item Value Reference Range Comments FERRITIN (BEAKER) (test uomu=220) 116 ng/mL 5-275 Effective 09/13/2014: Reference Range ChangeNew: Male 5-275 Previous: Male 22-322 Female 5-275 Female 10-291HEPATITIS A ANTIBODY, [id number] 13:19:00 Test Item Value Reference Range Comments HEPATITIS A IGG ANTIBODY (BEAKER) (test pmrz=3953) Reactive Nonreactive ALPHA FETOPROTEIN (AFP), TUMOR [id number] 13:17:00 Test Item Value Reference Range Comments ALPHA-FETOPROTEIN (BEAKER) (test enta=4309) 4.5 ng/mL <10.0 Effective 09/13/2014: Reference Range ChangeNew: <10.0 Previous: 0.0- 8.0HEPATITIS C [id number] 13:17:00 Test Item Value Reference Range Comments HEPATITIS C ANTIBODY (BEAKER) (test orsq=013) Nonreactive Nonreactive BODY FLUID CELL COUNT WITH [id number] 13:03:00 Test Item Value Reference Range Comments APPEARANCE FLUID (BEAKER) (test oadp=664) Cloudy Clear COLOR FLUID (BEAKER) (test nyjn=890) Yellow Colorless, Straw RBC FLUID (BEAKER) (test svvc=763) 1519 /cu mm <=1 ADJUSTED WBC FLUID (BEAKER) (test hels=1906) 108 /cu mm <=5 LINING CELLS (BEAKER) (test aobl=4472) 14 /cu mm <=1 NEUTROPHILS FLUID (BEAKER) (test knpw=6660) 11 % LYMPHS FLUID (BEAKER) (test qvnp=230) 30 % MONO/MACROPHAGE FLUID (BEAKER) (test ijsm=549) 59 % EOSINOPHILS FLUID (BEAKER) (test tipy=343) 0 % BASO FLUID (BEAKER) (test knrw=654) 0 % CONTAINER BODY FLUID (BEAKER) (test mrfd=6488) EDTA Tube BASIC METABOLIC [id number] 12:56:00 Test Item Value Reference Range Comments SODIUM (BEAKER) (test 131 meq/L 136-145 ficb=933) POTASSIUM (BEAKER) (test 4.0 meq/L 3.5-5.1 Specimen moderately fkel=061) hemolyzed CHLORIDE (BEAKER) (test 105 meq/L 98-107 ubuh=945) CO2 (BEAKER) (test 18 meq/L 22-29 wcgs=047) BLOOD UREA NITROGEN 6 mg/dL 7-21 (BEAKER) (test bcug=639) CREATININE (BEAKER) (test 0.72 mg/dL 0.57-1.25 Specimen moderately kmmb=353) hemolyzed GLUCOSE RANDOM (BEAKER) 103 mg/dL 70-105 (test lupq=240) CALCIUM (BEAKER) (test 7.4 mg/dL 8.4-10.2 xaiq=972) EGFR (BEAKER) (test 115 mL/min/1.73 sq m ESTIMATED GFR IS NOT xkou=2972) ACCURATE CREATININE CLEARANCE IN PREDICTING GLOMERULAR FILTRATION RATE. ESTIMATED GFR IS NOT APPLICABLE FOR DIALYSIS PATIENTS. Specimen moderately ictericIRON, TIBC, % SAT. (WITHOUT FERRITIN)2017-02-02 12:56 :00 Test Item Value Reference Range Comments IRON (BEAKER) (test qeoh=638) 55 ug/dL 40-160 TOTAL IRON BINDING CAPACITY (BEAKER) (test 175 ug/dL 250-450 vcad=617) IRON % SATURATION (2) (BEAKER) (test wgbu=2925) 31 % 20-55 HEPATIC FUNCTION [id number] 12:50:00 Test Item Value Reference Range Comments TOTAL PROTEIN (BEAKER) (test 6.7 gm/dL 6.0-8.3 Specimen moderately hemolyzed bgae=980) ALBUMIN (BEAKER) (test 2.0 g/dL 3.5-5.0 Specimen moderately hemolyzed uqxf=0201) BILIRUBIN TOTAL (BEAKER) (test 5.1 mg/dL 0.2-1.2 Specimen moderately hemolyzed ndmy=007) BILIRUBIN DIRECT (BEAKER) 2.8 mg/dL 0.1-0.5 Specimen moderately hemolyzed (test resa=579) ALKALINE PHOSPHATASE (BEAKER) 99 U/L 40-150 (test enkk=183) AST (SGOT) (BEAKER) (test 62 U/L 5-34 Specimen moderately hemolyzed zurk=703) ALT (SGPT) (BEAKER) (test 15 U/L 6-55 Specimen moderately wzig=034) hemolyzed Specimen moderately ictericCBC W/PLT COUNT & AUTO [id number] 12: 47:00 Test Item Value Reference Range Comments WHITE BLOOD CELL COUNT (BEAKER) (test aprw=445) 3.3 K/ L 4.0-10.0 RED BLOOD CELL COUNT (BEAKER) (test ranh=038) 2.08 M/ L 4.20-5.80 HEMOGLOBIN (BEAKER) (test kkbe=644) 7.8 GM/DL 13.0-16.8 HEMATOCRIT (BEAKER) (test seag=923) 22.9 % 40.0-50.0 MEAN CORPUSCULAR VOLUME (BEAKER) (test tzaz=776) 110.0 fL 82.0-98.0 MEAN CORPUSCULAR HEMOGLOBIN (BEAKER) (test 37.4 pg 27.0-33.0 fybf=841) MEAN CORPUSCULAR HEMOGLOBIN CONC (BEAKER) (test 34.1 GM/DL 32.0-36.0 bdaz=301) RED CELL DISTRIBUTION WIDTH (BEAKER) (test 15.0 % 10.3-14.2 jumb=291) PLATELET COUNT (BEAKER) (test hsqe=711) 48 K/CU MM 150-430 MEAN PLATELET VOLUME (BEAKER) (test hewr=752) 6.6 fL 6.5-10.5 NUCLEATED RED BLOOD CELLS (BEAKER) (test 0 /100 WBC 0-0 uybp=183) NEUTROPHILS RELATIVE PERCENT (BEAKER) (test 62 % mkgn=165) LYMPHOCYTES RELATIVE PERCENT (BEAKER) (test 17 % ezja=949) MONOCYTES RELATIVE PERCENT (BEAKER) (test 15 % pjfp=983) EOSINOPHILS RELATIVE PERCENT (BEAKER) (test 6 % rzny=331) BASOPHILS RELATIVE PERCENT (BEAKER) (test 0 % hpga=495) NEUTROPHILS ABSOLUTE COUNT (BEAKER) (test 2.03 K/ L 1.80-8.00 nhnc=235) LYMPHOCYTES ABSOLUTE COUNT (BEAKER) (test 0.57 K/ L 1.48-4.50 bvci=004) MONOCYTES ABSOLUTE COUNT (BEAKER) (test jsme=522) 0.48 K/ L 0.00-1.30 EOSINOPHILS ABSOLUTE COUNT (BEAKER) (test 0.19 K/ L 0.00-0.50 tyst=110) BASOPHILS ABSOLUTE COUNT (BEAKER) (test mdbx=358) 0.01 K/ L 0.00-0.20 0.00PROTHROMBIN [id number] 12:42:00 Test Item Value Reference Range Comments PROTIME (BEAKER) (test hhej=458) 27.0 seconds 11.7-14.7 INR (BEAKER) (test zfdf=652) 2.5 <=5.9 RECOMMENDED COUMADIN/WARFARIN INR THERAPY RANGESSTANDARD DOSE: 2.0 - 3.0 Includes: PROPHYLAXIS forvenous thrombosis, systemic embolization; TREATMENT for venous thrombosis and/or pulmonary embolus.HIGH RISK: Target INR is 2.5-3.5 for patients with mechanical heart valves.ALBUMIN, BODY [id number] 11:46:00 Test Item Value Reference Range Comments ALBUMIN FLUID (BEAKER) (test bmzj=132) 0.5 gm/dL Reference Range: No Normals Assay performance has not been validated for this type of specimen.PROTEIN, BODY [id number] 11:42:00 Test Item Value Reference Range Comments PROTEIN FLUID (BEAKER) (test vinb=579) 1.3 g/dL Absence of reference range indicates that normals have not been defined.Assay performance has not been validated for this type of specimen.
--- OUTSIDE RECORDS SUMMARY | 2018-12-17 01:07 | XMS REPORT ---
[...] Start Date End Date Status Dosage Lactulose [facility] 16248929186 10 GM/15ML Orally Jun 02, Active 30 ml TID 2018 Results No Known Results Summary Purpose eClinicalWorks Submission
--- OUTSIDE RECORDS SUMMARY | 2018-12-17 01:07 | XMS REPORT ---
[...] Date Date Ondansetron HCl [facility] 85468295095 4 MG Orally Active 1 tab every 8 hours as needed for Nausea and vomiting Ondansetron HCl ND 44244454541 4 MG Orally Active 1 tablet every 6 hours as needed for nausea/vom iting Citalopram [facility] 61029533385 10 MG Active TAKE ONE Hydrobromide DAILY Hydrocortisone ND 98881199623 20 MG Orally AM Active 1 tablet Once a day with food or milk Lactulose [facility] 35564803294 10 GM/15ML Active 15 ml Orally TID NuFera NDC 45115949115 - Orally once a Active 1 tab day Sodium Chloride [facility] 59588474423 1 GM Orally TID Active 2 tablets Ensure High [facility] 78995833936 - Orally every Oct 19, Active drink 320 Protein 4-6 hours 2018 ml Magnesium Oxide [facility] 92568303516 400 MG Orally Active 1 tablet BID as needed Hydrocortisone [facility] 45857254592 10 MG Orally PM Active 1 tablet Once a day with food or milk Ondansetron HCl [facility] 64162714042 4 MG Active 1 TAB EVERY 8 HOURS NEEDED FOR NAUSEA AND VOMITING ORALLY 10 DAYS Midodrine HCl [facility] 41634213144 10 MG Orally Active 1 tablet twice a day Ursodiol [facility] 23467561509 300 MG Orally Active not defined Rifaximin [facility] [address]-30 550 MG Orally Active 1 tablet Twice a day Citalopram [facility] 32704106500 40 MG Orally Active take one Hydrobromide once a day daily Pantoprazole [facility] 60980122864 40 MG Orally Active 1 tablet Sodium Once a day Results No Known Results Summary Purpose eClinicalWorks Submission
--- OUTSIDE RECORDS SUMMARY | 2018-12-17 01:07 | XMS REPORT ---
[...] Date Date Ondansetron HCl [facility] 18168907153 4 MG Orally Active 1 tablet every 6 hours as needed for nausea/vo miting Results No Known Results Summary Purpose [employer] Submission
--- OUTSIDE RECORDS SUMMARY | 2018-12-17 01:07 | XMS REPORT ---
[...] Status Dosage System Date Date Ensure High [facility] 52854866150 - Orally every Oct 19, Active drink 320 Protein 4-6 hours 2018 ml Ondansetron HCl ND 10599188804 4 MG Orally Active 1 tablet every 6 hours as needed for nausea/vo miting Results No Known Results Summary Purpose eClinicalWorks Submission
--- OUTSIDE RECORDS SUMMARY | 2018-12-17 01:07 | XMS REPORT ---
[...] Status Dosage System Date Date Ondansetron HCl [facility] 46545896268 4 MG Orally Active 1 tab every 8 hours as needed for Nausea and vomiting Hydrocortisone ND 61004222769 20 MG Orally AM Active 1 tablet Once a day with food or milk Magnesium Oxide ND 06086051036 400 MG Orally Active 1 tablet BID as needed Rifaximin [facility] [address]-02 550 MG Orally Active 1 tablet Twice a day Pantoprazole ND 89821709362 40 MG Orally Active 1 tablet Sodium Once a day Sodium Chloride ND 79605511295 1 GM Orally TID Active 2 tablets Lactulose ND 75152151504 10 GM/15ML Active 15 ml Orally TID Ondansetron HCl [facility] 54555117609 4 MG Active 1 TAB EVERY 8 HOURS NEEDED FOR NAUSEA AND VOMITING ORALLY 10 DAYS Citalopram [facility] 74162141588 40 MG Orally Active take one Hydrobromide once a day daily Hydrocortisone [facility] 44812338548 10 MG Orally PM Active 1 tablet Once a day with food or milk NuFera [facility] 16313540958 - Orally once a Active 1 tab day Citalopram [facility] 01122238355 10 MG Active TAKE ONE Hydrobromide DAILY Ursodiol [facility] 58001513683 300 MG Orally Active not defined Midodrine HCl [facility] 26349699326 10 MG Orally Active 1 tablet Three times a day Results No Known Results Summary Purpose eClinicalWorks Submission
--- OUTSIDE RECORDS SUMMARY | 2018-12-17 01:07 | XMS REPORT ---
[...] Date Date Midodrine HCl [facility] 37627348714 10 MG Orally Active 1 tablet Three times a day Pantoprazole [facility] 17576791202 40 MG Orally Active 1 tablet Sodium Once a day Sodium Chloride ND 87239294251 1 GM Orally TID Active 2 tablets Ondansetron HCl ND 97689925719 4 MG Orally Active 1 tab every 8 hours as needed for Nausea and vomiting Hydrocortisone ND 67941683945 20 MG Orally AM Active 1 tablet Once a day with food or milk Ursodiol ND 12845641617 300 MG Orally Active not defined Lactulose ND 62919959092 10 GM/15ML Active 15 ml Orally TID Citalopram [facility] 11663338444 10 MG Active TAKE ONE Hydrobromide DAILY Rifaximin [facility] [address]-48 550 MG Orally Active 1 tablet Twice a day Ondansetron HCl [facility] 42746961278 4 MG Active 1 TAB EVERY 8 HOURS NEEDED FOR NAUSEA AND VOMITING ORALLY 10 DAYS Magnesium Oxide [facility] 38078827929 400 MG Orally Active 1 tablet BID as needed NuFera [facility] 13332599221 - Orally once a Active 1 tab day Hydrocortisone [facility] 09057579576 10 MG Orally PM Active 1 tablet Once a day with food or milk Results No Known Results Summary Purpose eClinicalWorks Submission
[2018-12-17 01:22] LABS: Absolute Lymphocytes (CBC) 0.3 K/uL (0.7-4.9); Absolute Monocytes 0.4 K/uL (0.1-1.3); Absolute Neutrophil 5.9 K/uL (1.8-8.0); Basophils % 0.2 % (0-1.3); Eosinophils % 0.1 % (0-4.4); Hematocrit 37.2 % (39.6-49.0); Lymphocytes % 4.1 % (15.3-44.8); MPV 7.6 fL (7.6-11.3); Monocytes % 5.7 % (3.3-12.3); RBC Red Blood Cell Count 3.72 M/uL (4.33-5.43)
[2018-12-17] MEDS ORDERED: NA CHLORIDE 0.9% 1,000 ML ONE ×3 (01:25→03:12)
[2018-12-17 01:32] LABS: Protime INR 1.43
[2018-12-17 01:42] LABS: Albumin 3.7 g/dL (3.4-5.0); Bilirubin Direct 1.3 mg/dL (0-0.2); Bilirubin Total 3.2 mg/dL (0.2-1.0); Potassium 4.4 mmol/L (3.5-5.1); Protein, Total 6.5 g/dL (6.4-8.2); Troponin I 0.02 ng/mL (0.0-0.045)
--- NOTE | 2018-12-17 02:24 | ER ---
Nurse's Notes [facility] Name: Abhishek Davis Age: 53 yrs Sex: Male : 1965 Arrival Date: 12/17/2018 Time: 00:52 Bed 7 Private MD: Diagnosis: Urinary tract infection, site not specified;Encephalopathy, unspecified;Altered mental status, unspecified Presentation: 12/17 00:53 Presenting complaint: EMS states: they were toned out for report of pt having altered bb mental status and rectal bleeding which started yesterday pt recently discharged from [facility] for elevated ammonia levels secondary to liver cirrhosis. Transition of care: patient was not received from another setting of care. Onset of symptoms was December 16, 2018. Risk Assessment: Do you want to hurt yourself or someone else? Unable to obtain. Initial Sepsis Screen: Does the patient meet any 2 criteria? No. Patient's initial sepsis screen is negative. Does the patient have a suspected source of infection? No. Patient's initial sepsis screen is negative. Care prior to arrival: Glucose check: 183. 00:53 Method Of Arrival: EMS: [facility] bb 00:53 Acuity: KACEY 2 bb Historical: - Allergies: 00:58 No Known Allergies; bb - Home Meds: 00:58 Centrum Oral daily [Active]; citalopram 10 mg tab 1 tab once daily [Active]; bb hydroxyzine HCl 25 mg Oral tab PRN [Active]; Lactulose Oral 30 mL 3 times per day [Active]; Lasix 40 mg Oral tab 1 tab once daily [Active]; mag oxide 400 mg daily [Active]; midodrine 5 mg Oral tab twice a day [Active]; ondansetron HCl 4 mg Oral tab PRN [Active]; pantoprazole 40 mg Oral TbEC 2 tabs once daily [Active]; ursodiol 300 mg Oral cap 1 cap 2 times per day [Active]; vitamin with iron daily [Active]; Xifaxan 550 mg Oral tab 1 tab 2 times per day [Active]; - PMHx: 00:58 Anemia; Cirrhosis; renal insufficiency; Umbilical hernia; bb - Immunization history:: Adult Immunizations. - Social history:: Smoking status: unknown. - Ebola Screening: : No symptoms or risks identified at this time. Screenin:10 Abuse screen: Denies threats or abuse. Nutritional screening: No deficits noted. ea Tuberculosis screening: No symptoms or risk factors identified. Fall Risk IV access (20 points). Mental Status- Overestimates/Forgets Limitations (15 pts.). Assessment: 01:10 General: Appears uncomfortable, Behavior is cooperative. Pain: Unable to use pain ea scale. Patient appears to be grimacing, FLACC scale score is 5 out of 10. Neuro: Level of Consciousness is awake, alert, confused, Oriented to none. Cardiovascular: Patient's skin is warm and dry. Respiratory: Airway is patent Respiratory effort is even, unlabored, Respiratory pattern is regular, symmetrical. GI: Abdomen is distended, discolored. Derm: Skin is dry, Skin is pale, Skin temperature is hot. 02:49 Reassessment: No changes from previously documented assessment. Patient and/or family jd3 updated on plan of care and expected duration. Pain level reassessed. 03:12 Reassessment: Patient alert and oriented to self. Respirations even and unlabored, ea chest expansions even and symmetrical. Pt is able to follow verbal commands but is confused. Awaiting on room assignment. 03:30 Reassessment: Report given to Renny NÚÑEZ on fourth floor. ea 03:50 Reassessment: No changes from previously documented assessment. Pt taken to fourth ea floor via stretcher per nurse, pt accompanied by family member. Vital Signs: 00:58 BP 115 / 84; Pulse 146; Resp 28 S; Temp 99.2(O); Pulse Ox 97% on R/A; Weight 70.31 kg bb (R); Height 6 ft. 0 in. (182.88 cm) (R); 01:50 BP 105 / 85; Pulse 134; Resp 24; Pulse Ox 96% ; ea 02:49 BP 109 / 86; Pulse 137; Resp 25 S; Pulse Ox 95% on R/A; jd3 03:11 BP 112 / 92; Pulse 128; Resp 25; Temp 97.9; Pulse Ox 97% ; ea 03:45 BP 92 / 73; Pulse 129; Resp 25; Pulse Ox 98% on 2 lpm NC; ea 00:58 Body Mass Index 21.02 (70.31 kg, 182.88 cm) bb ED Course: 00:52 Patient arrived in ED. bb 00:53 Stanislaw Matias PA is PHCP. cp 00:53 Yasir Watkins MD is Attending Physician. cp 00:57 Triage completed. bb 00:58 Arm band placed on Patient placed in an exam room, on a stretcher, on monitoring and evaluation advisor, bb on pulse oximetry. EKG completed in triage. Results shown to MD. Family accompanied patient. 01:05 Agustina Stout, RN is Primary Nurse. ea 01:05 Patient has correct armband on for positive identification. Placed in gown. Bed in low ea position. Call light in reach. Side rails up X2. family member at bedside. 01:15 Inserted saline lock: 20 gauge in right antecubital area, using aseptic technique. ea Blood collected. 01:32 X-ray completed. Portable x-ray completed in exam room. Patient tolerated procedure kw well. 01:35 Chest Single View In Process Unspecified. EDMS 02:22 Bobbi Moe MD is Hospitalizing Provider. cp 02:57 No provider procedures requiring assistance completed. Patient admitted, IV remains in ea place. Administered Medications: 01:36 Drug: NS 0.9% 1000 ml Route: IV; Rate: 1 bolus; Site: right antecubital; ea 02:15 Follow up: Response: No adverse reaction; IV Status: Completed infusion; IV Intake: ea 1000ml 02:28 Drug: ProTONIX 40 mg Route: IVP; Site: right antecubital; ea 03:10 Follow up: Response: No adverse reaction ea 02:29 Drug: NS 0.9% 1000 ml Route: IV; Rate: 1 bolus; Site: right antecubital; ea 03:41 Follow up: Response: No adverse reaction; IV Status: Completed infusion; IV Intake: ea 1000ml 02:29 Drug: Rocephin - (cefTRIAXone) 1 grams Route: IVPB; Infused Over: 30 mins; Site: right ea antecubital; 03:09 Follow up: Response: No adverse reaction; IV Status: Completed infusion ea 03:05 Drug: NS 0.9% 1000 ml Route: IV; Rate: 125 ml/hr; Site: right antecubital; ea 03:10 Follow up: Response: No adverse reaction; IV Status: Infusion continued upon admission ea Intake: 02:15 IV: 1000ml; Total: 1000ml. ea 03:41 IV: 1000ml; Total: 2000ml. ea Outcome: 02:23 Decision to Hospitalize by Provider. krystal 02:57 Instructed on the need for admit. los 03:40 Admitted to Med/surg accompanied by nurse, room 413, with oxygen, with chart, Report ea called to Renny NÚÑEZ 03:40 Condition: stable 04:10 Patient left the ED. los Signatures: Dispatcher [employer] EDAndie Espinoza RN RN Renetta Wilkins Corey, PA PA cp Antunez, Elena, RN RN ea Davies, Jonathon RN RN jd3
--- NOTE | 2018-12-17 02:25 | EDPHYS ---
Physician Documentation [facility] Name: Abhishek Davis Age: 53 yrs Sex: Male : 1965 Arrival Date: 12/17/2018 Time: 00:52 Bed 7 Private MD: ED Physician Yasir Watkins HPI: 12/17 01:09 This 53 yrs old Male presents to ER via EMS with complaints of Altered Mental cp Status. 01:09 The patient presents with confusion. Onset: The symptoms/episode began/occurred cp yesterday. Possible causes: history of liver disease. Associated signs and symptoms: Pertinent positives: blood in stool, Pertinent negatives: abdominal pain, chest pain, diarrhea, vomiting. Current symptoms: In the emergency department the patient's symptoms are unchanged from the initial presentation, despite home interventions. Historical: - Allergies: 00:58 No Known Allergies; bb - Home Meds: 00:58 Centrum Oral daily [Active]; citalopram 10 mg tab 1 tab once daily [Active]; bb hydroxyzine HCl 25 mg Oral tab PRN [Active]; Lactulose Oral 30 mL 3 times per day [Active]; Lasix 40 mg Oral tab 1 tab once daily [Active]; mag oxide 400 mg daily [Active]; midodrine 5 mg Oral tab twice a day [Active]; ondansetron HCl 4 mg Oral tab PRN [Active]; pantoprazole 40 mg Oral TbEC 2 tabs once daily [Active]; ursodiol 300 mg Oral cap 1 cap 2 times per day [Active]; vitamin with iron daily [Active]; Xifaxan 550 mg Oral tab 1 tab 2 times per day [Active]; - PMHx: 00:58 Anemia; Cirrhosis; renal insufficiency; Umbilical hernia; bb - Immunization history:: Adult Immunizations. - Social history:: Smoking status: unknown. - Ebola Screening: : No symptoms or risks identified at this time. ROS: 01:11 Constitutional: Negative for fever. cp 01:11 Cardiovascular: Negative for chest pain. 01:11 Abdomen/GI: Positive for rectal bleeding, Negative for abdominal pain. 01:11 Neuro: Positive for altered mental status. 01:11 Unable to obtain ROS due to altered mental status. Exam: 01:20 Constitutional: The patient appears in no acute distress, alert, awake, cp non-diaphoretic, non-toxic, well developed, well nourished. 01:20 Head/Face: Normocephalic, atraumatic. cp 01:20 Eyes: Periorbital structures: appear normal, Pupils: equal, round, and reactive to light and accomodation, Conjunctiva: normal, no exudate, no injection, Sclera: no appreciated abnormality, Lids and lashes: appear normal, bilaterally. 01:20 ENT: External ear(s): are unremarkable, Ear canal(s): are normal, clear, TM's: bulging, cp is not appreciated, bilaterally, dullness, bilaterally, erythema, is not appreciated, bilaterally, Nose: is normal, Mouth: Lips: moist, Oral mucosa: moist, Posterior pharynx: Airway: no evidence of obstruction, patent, erythema, is not appreciated, exudate, is not appreciated. 01:20 Neck: ROM/movement: is normal, is supple, without pain, no meningismus, no nuchal rigidity. 01:20 Chest/axilla: Inspection: normal, Palpation: is normal, no crepitus, no tenderness. 01:20 Cardiovascular: Rate: tachycardic, Rhythm: regular, Pulses: Pulses are 2+ in right radial artery and left radial artery. Edema: is not appreciated, JVD: is not appreciated. 01:20 Respiratory: the patient does not display signs of respiratory distress, Respirations: normal, no use of accessory muscles, no retractions, no splinting, no tachypnea, labored breathing, is not present, Breath sounds: decreased breath sounds, are not appreciated, rhonchi, are not appreciated, stridor, is not appreciated, wheezing: is not appreciated. 01:20 Abdomen/GI: Inspection: distension, that is mild, Palpation: abdomen is soft and non-tender, in all quadrants, involuntary guarding, is not appreciated, Rectal exam: Stool: brown, guaiac positive, Hernia: noted in the paraumbilical area, tenderness, is not appreciated, bowel sounds are appreciated on auscultation. 01:20 Back: pain, is absent, ROM is normal. 01:20 Skin: cellulitis, is not appreciated, no rash present. 01:20 Neuro: Orientation: Not oriented to person, place, situation, Mentation: slow to respond, confused, Motor: moves all fours. 01:30 ECG was reviewed by the Attending Physician. cp Vital Signs: 00:58 BP 115 / 84; Pulse 146; Resp 28 S; Temp 99.2(O); Pulse Ox 97% on R/A; Weight 70.31 kg bb (R); Height 6 ft. 0 in. (182.88 cm) (R); 01:50 BP 105 / 85; Pulse 134; Resp 24; Pulse Ox 96% ; ea 02:49 BP 109 / 86; Pulse 137; Resp 25 S; Pulse Ox 95% on R/A; jd3 03:11 BP 112 / 92; Pulse 128; Resp 25; Temp 97.9; Pulse Ox 97% ; ea 03:45 BP 92 / 73; Pulse 129; Resp 25; Pulse Ox 98% on 2 lpm NC; ea 00:58 Body Mass Index 21.02 (70.31 kg, 182.88 cm) bb MDM: 00:58 Patient medically screened. cp 01:38 Differential Diagnosis: electrolyte abnormality, pneumonia, sepsis, UTI, volume cp depletion, hepatic encephalopathy. 02:20 Data reviewed: vital signs, nurses notes, lab test result(s), EKG, radiologic studies, cp plain films. 02:20 Test interpretation: by ED physician or midlevel provider: ECG, plain radiologic cp studies. 02:20 Physician consultation: Bobbi Moe MD was called at 02:20, was contacted at 02:20, regarding admission, to the medical/surgical unit. patient's condition. 12/17 00:56 Order name: Urine Culture cp 12/17 00:56 Order name: Basic Metabolic Panel cp 12/17 00:56 Order name: Blood Culture Adult (2) cp 12/17 00:56 Order name: CBC with Diff cp 12/17 00:56 Order name: CPK cp 12/17 00:56 Order name: Lactate cp 12/17 00:56 Order name: LFT's cp 12/17 00:56 Order name: Lipase cp 12/17 00:56 Order name: Procalcitonin cp 12/17 00:56 Order name: Protime (+inr) cp 12/17 00:56 Order name: Ptt, Activated cp 12/17 00:56 Order name: Troponin (emerg Dept Use Only) cp 12/17 00:56 Order name: Urine Microscopic Only cp 12/17 00:56 Order name: AMMONIA cp 12/17 00:56 Order name: Influenza Screen (a \T\ B) cp 12/17 01:17 Order name: Basic Metabolic Panel; Complete Time: 01:51 EDMS 12/17 01:51 Interpretation: Normal except: CO2 19; GLUC 171; BUN 49; CRE 1.94; GFR 36; CA 11.0. 12/17 01:17 Order name: Liver (Hepatic) Function; Complete Time: 01:51 EDMS 12/17 01:54 Interpretation: Normal except: ALK 195; BILIT 3.2; BILID 1.3. cp 12/17 01:18 Order name: Creatine Phosphokinase; Complete Time: 01:51 EDMS 12/17 02:11 Interpretation: Reviewed. 12/17 01:18 Order name: Troponin I; Complete Time: 01:51 EDMS 12/17 02:11 Interpretation: Reviewed. 12/17 01:18 Order name: Lipase; Complete Time: 01:51 EDMS 12/17 01:24 Order name: Lactate; Complete Time: 01:51 EDMS 12/17 02:04 Interpretation: Abnormal: LAC 7.2. cp 12/17 01:24 Order name: Procalcitonin; Complete Time: 02:03 EDMS 12/17 02:03 Interpretation: Reviewed. 12/17 01:24 Order name: CBC with Automated Diff; Complete Time: 02:10 EDMS 12/17 02:04 Interpretation: Normal except: WBC 6.5; RBC 3.72; HGB 12.6; HCT 37.2; MCV 100.2; PLT cp 102; RDW 22.3; EMANI% 89.9; LYM% 4.1; LYMA 0.3. 12/17 01:24 Order name: Protime (+INR); Complete Time: 01:51 EDMS 12/17 02:05 Interpretation: Abnormal: PT 16.6. 12/17 01:24 Order name: PTT, Activated Partial Thromb; Complete Time: 01:51 EDMS 12/17 01:24 Order name: Blood Culture EDMS 12/17 01:24 Order name: Influenza Screen (A ; Complete Time: 01:51 EDMS 12/17 02:11 Interpretation: Reviewed. 12/17 01:24 Order name: Ammonia; Complete Time: 01:51 EDMS 12/17 02:04 Interpretation: Abnormal: JESICA 141. cp 12/17 01:24 Order name: Blood Culture EDMS 12/17 01:29 Order name: Manual Differential; Complete Time: 02:10 EDMS 12/17 00:56 Order name: Cath; Complete Time: 02:51 cp 12/17 00:56 Order name: Chest Single View XRAY cp 12/17 00:56 Order name: Accucheck; Complete Time: 02:51 cp 12/17 00:56 Order name: Cardiac monitoring; Complete Time: 02:51 cp 12/17 00:56 Order name: EKG - Nurse/Tech; Complete Time: 02:51 cp 12/17 00:56 Order name: IV Saline Lock - Large Bore; Complete Time: 02:51 cp 12/17 00:56 Order name: Labs collected and sent; Complete Time: 02:51 cp 12/17 00:56 Order name: O2 Per Protocol; Complete Time: 02:51 cp 12/17 00:56 Order name: O2 Sat Monitoring; Complete Time: 02:51 cp 12/17 00:56 Order name: Urine Dipstick-Ancillary (obtain specimen); Complete Time: 02:51 cp 12/17 01:28 Order name: Chest Single View; Complete Time: 02:10 EDMS 12/17 01:54 Order name: Simmons; Complete Time: 02:16 cp 12/17 02:10 Order name: Urine Microscopic Only; Complete Time: 03:30 EDMS 12/17 02:10 Order name: Urine Culture EDMS 12/17 02:28 Order name: Urine Dipstick--Ancillary (enter results) ar5 12/17 03:34 Order name: Lactate ea EC:30 Rate is 135 beats/min. Rhythm is regular. DC interval is normal. QRS interval is cp normal. QT interval is normal. Interpreted by me. Reviewed by me. Administered Medications: 01:36 Drug: NS 0.9% 1000 ml Route: IV; Rate: 1 bolus; Site: right antecubital; ea 02:15 Follow up: Response: No adverse reaction; IV Status: Completed infusion; IV Intake: ea 1000ml 02:28 Drug: ProTONIX 40 mg Route: IVP; Site: right antecubital; ea 03:10 Follow up: Response: No adverse reaction ea 02:29 Drug: NS 0.9% 1000 ml Route: IV; Rate: 1 bolus; Site: right antecubital; ea 03:41 Follow up: Response: No adverse reaction; IV Status: Completed infusion; IV Intake: ea 1000ml 02:29 Drug: Rocephin - (cefTRIAXone) 1 grams Route: IVPB; Infused Over: 30 mins; Site: right ea antecubital; 03:09 Follow up: Response: No adverse reaction; IV Status: Completed infusion ea 03:05 Drug: NS 0.9% 1000 ml Route: IV; Rate: 125 ml/hr; Site: right antecubital; ea 03:10 Follow up: Response: No adverse reaction; IV Status: Infusion continued upon admission ea Disposition: 03:02 Chart complete. cp 06:33 Co-signature as Attending Physician, Yasir Watkins MD. rn Disposition: 12/17/18 02:23 Hospitalization ordered by Bobbi Moe for Inpatient Admission. Preliminary diagnosis are Urinary tract infection, site not specified, Encephalopathy, unspecified, Altered mental status, unspecified. - Bed requested for Telemetry/MedSurg (Inpatient). - Status is Inpatient Admission. ea - Condition is Stable. - Problem is new. - Symptoms have improved. UTI on Admission? Yes Signatures: Dispatcher [employer] EDAndie Espinoza RN RN bb Nieto, Roman, MD MD rn Page, Corey, PA PA cp Rocio Crawley RN RN cg Antunez, Elena, RN RN Corrections: (The following items were deleted from the chart) 01:51 01:51 Normal except: CO2 19; GLUC 171; BUN 49; CRE 1.94; GFR 36. cp cp 02:55 02:23 Hospitalization Ordered by Bobbi Moe MD for Inpatient Admission. Preliminary cg diagnosis is Urinary tract infection, site not specified; Encephalopathy, unspecified; Altered mental status, unspecified. Bed requested for Telemetry/MedSurg (Inpatient). Status is Inpatient Admission. Condition is Stable. Problem is new. Symptoms have improved. UTI on Admission? Yes. cp 04:10 02:55 12/17/2018 02:23 Hospitalization Ordered by Bobbi Moe MD for Inpatient ea Admission. Preliminary diagnosis is Urinary tract infection, site not specified; Encephalopathy, unspecified; Altered mental status, unspecified. Bed requested for Telemetry/MedSurg (Inpatient). Status is Inpatient Admission. Condition is Stable. Problem is new. Symptoms have improved. UTI on Admission? Yes. cg
[2018-12-17] MEDS ORDERED: CEFTRIAXONE 1000 MG/VIAL ONE (02:28)
[2018-12-17] MEDS ORDERED: PANTOPRAZOLE 40 MG INJ ONE (02:29)
[2018-12-17 02:49] LABS: Urine Bacteria <20 /HPF (NONE SEEN); Urine Culture Reflex Order NOT NEEDED; Urine Mucus LIGHT /HPF (NONE SEEN)
--- NOTE | 2018-12-17 03:00 | P.HP ---
Certification for Inpatient Patient admitted to: Inpatient With expected LOS: >2 Midnights Practitioner: I am a practitioner with admitting privileges, knowledge of patient current condition, hospital course, and medical plan of care. Services: Services provided to patient in accordance with Admission requirements found in Title 42 Section 412.3 of the Code of Federal Regulations Patient History Date of Service: 12/17/18 Reason for admission: hepatic encephalopathy History of Present Illness: Mr Davis is a 53 years old male with history of alcoholic liver cirrhosis, CKD, recurrent admission for hepatic encephalopathy, ascites last time tap was last week, he was recently admitted to [facility] due to GIB. According to his , the patient started yesterday to be more confuse and sleepy. No history of fever or chills. Last bowel movement was yesterday morning. Lab work shows normal WBC count, elevated ammonia level 141, UA pending. At my encounter he was obtunded. Temp 99.2F, BP 115/84. Allergies No Known Drug Allergies Allergy (Verified 11/06/18 10:46) Unknown Home medications list reviewed: Yes Home Medications: Citalopram [Celexa*] 40 mg PO DAILY 10/28/18 Midodrine HCl [Proamatine*] 10 mg PO BID 10/28/18 Rifaximin [Xifaxan] 1 tab PO BID 10/28/18 Ursodiol 1 tab PO BID 10/28/18 Hydrocortisone [Cortef*] 25 mg PO BID 12/04/18 Hydroxyzine HCl [Atarax] 25 mg PO PRN PRN 12/04/18 Multivitamin/Iron/Folic Acid [Centrum Adults Tablet] 1 tab PO DAILY 12/04/18 Ondansetron [Zofran (Odt)*] 4 mg PO PRN PRN 12/04/18 Pantoprazole [Protonix Tab*] 40 mg PO DAILY 12/04/18 Lactulose 30 ml PO QID #1 bottle 12/05/18 - Past Medical/Surgical History Diabetic: No -: Chronic kidney disease -: Chronic alcoholic liver cirrhosis -: Ascites with multiple paracentesis in the past -: Chronic hyponatremia -: Anemia of chronic disease -: GERD -: left wrist sx to remove cyst -: hernia repair -: sx on left lower leg Psychosocial/ Personal History: Patient is - Family History Mother -: Hypertension, GI disease, Liver disease Notes: mother because of cirrhosis Father -: Diabetes - Social History Smoking Status: Never smoker Alcohol use: No CD- Drugs: No Caffeine use: No Place of Residence: Home Review of Systems 10-point ROS is otherwise unremarkable Physical Examination - Physical Exam General: In no apparent distress, Unresponsive HEENT: Atraumatic, PERRLA, Mucous membr. moist/pink, EOMI, Sclerae nonicteric Neck: Supple, 2+ carotid pulse no bruit, No LAD, Without JVD or thyroid abnormality Respiratory: Clear to auscultation bilaterally, Diminished Cardiovascular: Normal S1 S2, No gallops Gastrointestinal: Hypoactive, No tenderness, Distended, Ascites Musculoskeletal: No tenderness Integumentary: No rashes Neurological: Normal strength at 5/5 x4 extr, Normal tone, Normal affect Lymphatics: No axilla or inguinal lymphadenopathy - Studies Laboratory Data (last 24 hrs) 12/17/18 01:00: PT 16.6 H, INR 1.43, APTT 31.5 12/17/18 01:00: WBC 6.5 D, Hgb 12.6 L, Hct 37.2 L D, Plt Count 102 L D 12/17/18 01:00: Sodium 138, Potassium 4.4, BUN 49 H, Creatinine 1.94 H, Glucose 171 H, Total Bilirubin 3.2 H, AST 24, ALT 28, Alkaline Phosphatase 195 H, Troponin I 0.02, Lipase 181 Microbiology Data (last 24 hrs): 12/17/18 01:00 Nasopharnyx Influenza Type A Antigen Screen - Final 12/17/18 01:00 Nasopharnyx Influenza Type B Antigen Screen - Final Assessment and Plan - Problems (Diagnosis) (1) Ascites Onset Date: 11/20/17 Current Visit: No Status: Chronic Qualifiers: Ascites type: due to alcoholic cirrhosis (2) Chronic renal disease Onset Date: 12/04/18 Current Visit: No Status: Chronic Qualifiers: Chronic kidney disease stage: stage 3 (moderate) Qualified Code(s): N18.3 - Chronic kidney disease, stage 3 (moderate) (3) Cirrhosis of liver Onset Date: 03/23/15 Current Visit: No Status: Chronic (4) Hepatic encephalopathy Onset Date: 12/04/18 Current Visit: No Status: Resolved - Plan Will admit Mr Davis due to hepatic encephalopathy. Resume lactulose and rifaximine. Awaiting UA report. Fall precautions. - Advance Directives Does patient have a Living Will: No Does patient have a Durable POA for Healthcare: No - Code Status/Comfort Care Code Status Assessed: Yes Code Status: Full Code
[2018-12-17 03:30] LABS: Anisocytosis 2+; Blood Morphology Comment NOTED (NOT SEEN); Burr Cells 2+; Platelet Estimate DECR
[2018-12-17] MEDS: NA CHLORIDE 0.9% 1,000 ML IV SCH ×2 (04:54→14:54)
[2018-12-17] MEDS ORDERED: ONDANSETRON 4 MG/2 ML VIAL IV PRN (04:54)
[2018-12-17 05:24] VITALS: BMI 20.9
[2018-12-17] MEDS: INSULIN -REGULAR HUMAN 50 UNIT/0.5 ML ML SQ SCH ×3 (06:00→17:44)
[2018-12-17 07:18] LABS: Urine Appearance CLOUDY; Urine Blood 3+ (NEG); Urine Color ORANGE; Urine Glucose NEGATIVE (NEG); Urine Protein TRACE (NEG); Urine Specific Gravity 1.025 (1.005-1.030); Urine pH 5.5 (5.0-7.0)
[2018-12-17 07:28] LABS: Urine Bilirubin 2+ (NEG); Urine Microscopic Reflex ORDER UMIC
[2018-12-17 07:30] LABS: Urine Blood 1+ (NEG); Urine Glucose NEGATIVE (NEG); Urine Protein 1+ (NEG); Urine Specific Gravity 1.015 (1.005-1.030)
[2018-12-17 07:33] LABS: Urine Culture Reflex Order NOT NEEDED
[2018-12-17 07:35] LABS: Urine Bacteria <20 /HPF (NONE SEEN)
--- NOTE | 2018-12-17 08:18 | RAD REPORT ---
EXAM DESCRIPTION: RAD - Chest Single View - 12/17/2018 1:35 am CLINICAL HISTORY: AMS Chest pain. COMPARISON: Chest Single View dated 12/09/2018; Abdomen 1 View (KUB) dated 12/05/2018; Chest Single Vie w dated 12/03/2018; Chest Single View dated 11/10/2018 FINDINGS: Portable technique limits examination quality. Linear subsegmental atelectasis is present in the left lung base. The lungs are underinflated. The he art is normal in size. No displaced fractures. IMPRESSION: Underinflated lungs.
[2018-12-17] MEDS ORDERED: HYDROCORTISONE SUC 100 MG INJ IV ONE (08:43)
--- NOTE | 2018-12-17 08:43 | EKG ---
Test Date: 2018-12-17 Test Time: 01:25:26 Food Scientist: NATALI MEASUREMENT RESULTS: Intervals: Rate: 135 NM: 146 QRSD: 74 QT: 282 QTc: 423 [place]: P: 24 NM: 146 QRS: -26 T: 22 INTERPRETIVE STATEMENTS: Sinus tachycardia Anterior infarct, age undetermined Abnormal ECG Compared to ECG 12/03/2018 20:01:38 Myocardial infarct finding now present Sinus rhythm no longer present Prolonged QT interval no longer present Electronically Signed On 12-17-18 08:43:18 DIRECTOR [employer] by Chris Ramos
[2018-12-17] MEDS ORDERED: HYDROCORTISONE 10 MG TAB PO SCH (09:00)
[2018-12-17] MEDS ORDERED: CEFTRIAXONE/SWI 1gm 1 GM/10 ML SYR IV SCH (09:00)
[2018-12-17] MEDS ORDERED: CEFTRIAXONE 1 GM/NS 50 ML 1 GM/50 ML BAG IV SCH (09:00)
[2018-12-17] MEDS ORDERED: URSODIOL 300 MG CAP PO SCH (09:00)
[2018-12-17] MEDS ORDERED: MULTIVITAMIN TAB PO SCH (09:00)
[2018-12-17] MEDS ORDERED: Rifaximin 550 MG Tab PO SCH (09:00)
[2018-12-17] MEDS: LACTULOSE 20 GM/30 ML UCUP PO SCH ×3 (09:08→16:29)
--- NOTE | 2018-12-17 11:01 | P.PN ---
Subjective Date of Service: 12/17/18 Primary Care Provider: Dr. Carlos Payne; Hepatology/Liver Center-Dr. Malave Chief Complaint: hepatic encephalopathy Subjective: Other (Patient alert but still confused. at bedside.) Physical Examination - Vital Signs Temperature: 99.0 F Blood Pressure: 114/66 Pulse: 120 Respirations: 24 Pulse Ox (%): 97 - Physical Exam General: Alert, Confused HEENT: Atraumatic Neck: Supple Respiratory: Clear to auscultation bilaterally, Normal air movement Cardiovascular: Abnormal pulses (Sinus tachycardia) Gastrointestinal: Normal bowel sounds, Soft and benign, Ascites (Large ascites noted.) Musculoskeletal: No tenderness, No warmth Integumentary: No warmth, No cyanosis, Other (Some ecchymosis to the lower extremities.) Neurological: Normal speech, Normal strength at 5/5 x4 extr, Normal tone - Studies Laboratory Data (last 24 hrs) 12/17/18 01:00: PT 16.6 H, INR 1.43, APTT 31.5 12/17/18 01:00: WBC 6.5 D, Hgb 12.6 L, Hct 37.2 L D, Plt Count 102 L D 12/17/18 01:00: Sodium 138, Potassium 4.4, BUN 49 H, Creatinine 1.94 H, Glucose 171 H, Total Bilirubin 3.2 H, AST 24, ALT 28, Alkaline Phosphatase 195 H, Troponin I 0.02, Lipase 181 12/17/18 00:56: PT Cancelled, INR Cancelled, APTT Cancelled 12/17/18 00:56: WBC Cancelled, Hgb Cancelled, Hct Cancelled, Plt Count Cancelled 12/17/18 00:56: Sodium Cancelled, Potassium Cancelled, BUN Cancelled, Creatinine Cancelled, Glucose Cancelled, Total Bilirubin Cancelled, AST Cancelled, ALT Cancelled, Alkaline Phosphatase Cancelled, Lipase Cancelled Microbiology Data (last 24 hrs): 12/17/18 01:00 Nasopharnyx Influenza Type A Antigen Screen - Final 12/17/18 01:00 Nasopharnyx Influenza Type B Antigen Screen - Final Medications List Reviewed: Yes Assessment & Plan Discharge Plan: Transfer Plan to discharge in: 24 Hours Physician Review Additional Text: Impression: Altered mental status secondary to Hepatic encephalopathy with history of end- stage alcoholic cirrhosis complicated with dehydration and UTI Acute on chronic renal disease with dehydration, stage III Anemia of chronic disease Thrombocytopenia secondary to alcoholic cirrhosis Hypotension on midodrine Ascites with history of recurrent paracentesis Adrenal insufficiency on chronic steroids Depression GERD Plan: Altered mental status secondary to Hepatic encephalopathy with history of end- stage alcoholic cirrhosis complicated with dehydration and UTI: Patient alert but confused. Will continue with lactulose and his Xifaxan by mouth. If not able to take good oral intake then will need to provide lactulose per rectum. Will monitor with serial exams. Will continue with IV fluids due to dehydration and UTI. Patient on IV Rocephin for underlying UTI. Blood cultures and urine cultures obtained. Will continue to monitor electrolytes and ammonia level. Patient will require paracentesis. Case discussed at length with his cytotechnologist/cytology supervisor at [facility] [place]-. Family desires patient to be at the liver center. Patient likely still candidate for liver transplant as per discussion with Dr. Malave's notes concerning recommendation by Liver surgeon. Transfer initiated and discuss with Dr. Malave. Dr. Malave agrees with transfer. Await acceptance. Continue to monitor closely. Nephrology consulted to further address his dehydration with chronic renal disease. Acute on chronic renal disease with dehydration, stage III: Continue with IV fluids. Will monitor closely. Await further recommendations from nephrology. Anemia of chronic disease: No active bleeding noted. Will monitor hemoglobin. Thrombocytopenia secondary to alcoholic cirrhosis: Will monitor closely. Will hold off on DVT prophylaxis due to risk of bleeding. Hypotension on midodrine: Will provide midodrine as needed. Ascites with history of recurrent paracentesis: Patient will need paracentesis due to ascites. This will need to be set up at [facility] or here. Adrenal insufficiency on chronic steroid: Will provide IV hydrocortisone. Will continue with his medication. Depression: Will review and restart home medication. GERD: Will provide medication. Time Spent Managing Pts Care (In Minutes): 55
[2018-12-17] MEDS ORDERED: SODIUM CHLORIDE 0.9% 10ML INJ IV PRN (11:02)
--- NOTE | 2018-12-17 12:45 | P.DS ---
Admission Date: 12/17/18 Discharge Date: 12/17/18 Primary Care Provider: Dr. Carlos Payne; Hepatology/Liver Center-Dr. Malave Disposition: TRANSFER TO [facility] Discharge Condition: GOOD Reason for Admission: hepatic encephalopathy Consultations: Nephrology-Dr. Johnson Procedures: CXR: COMPARISON: Chest Single View dated 12/09/2018; Abdomen 1 View (KUB) dated 2018; Chest Single View dated 12/03/2018; Chest Single View dated 11/10/2018 FINDINGS: Portable technique limits examination quality. Linear subsegmental atelectasis is present in the left lung base. The lungs are underinflated. The heart is normal in size. No displaced fractures. IMPRESSION: Underinflated lungs. Medical Problem List: Altered mental status secondary to Hepatic encephalopathy with history of end- stage alcoholic cirrhosis complicated with dehydration and UTI Acute on chronic renal disease with dehydration, stage III Anemia of chronic disease Thrombocytopenia secondary to alcoholic cirrhosis Hypotension on midodrine Ascites with history of recurrent paracentesis Adrenal insufficiency on chronic steroids Depression GERD Brief History of Present Illness: 53-year-old male presented to emergency room with altered mental status. Patient with end-stage liver cirrhosis, chronic kidney disease, adrenal insufficiency on steroid, anemia with thrombocytopenia. Patient found to have hepatic encephalopathy with UTI and dehydration. Patient was admitted for treatment. Patient recently hospitalized at [facility] with the liver center. Hospital Course: The patient presents with altered mental status secondary to hepatic encephalopathy with history of end-stage alcoholic cirrhosis complicated with dehydration and UTI. Blood cultures and urine cultures obtained. Patient on IV Rocephin. Patient continues with IV fluids. Patient alert but still confused. Patient currently on lactulose and xifaxan. Case discussed at length with his virology teacher at [facility]-. Family desires patient to be at the liver [place]. Patient likely still candidate for liver transplant as per discussion with Dr. Malave's notes concerning recommendation by Liver surgeon. Transfer initiated and discuss with Dr. Malave. Dr. Malave agrees with transfer. Case also discussed with hospitalist. Hospital has accepted. Patient to be transferred to higher level of care center to further evaluate and treat. Patient with acute on chronic renal disease with dehydration, stage III. Patient continues with IV fluids. This will need to be monitored closely. Nephrology will need to be consulted. Patient with anemia of chronic disease. No active bleeding noted this time. Hemoglobin will need to be monitored. Hypotension on midodrine. Patient continues with midodrine. Patient with adrenal insufficiency on chronic steroids. Patient given IV hydrocortisone. Oral hydrocortisone to be continued. Patient with GERD. Patient continues with medication. Patient with depression. Once more alert medication can be started. Patient to be transferred. Further adjustment in medication can be done by liver center team. Vital Signs/Physical Exam: Temp Pulse Resp BP Pulse Ox 99.0 F 120 H 24 H 114/66 97 12/17/18 11:01 12/17/18 11:01 12/17/18 11:01 12/17/18 11:01 12/17/18 11:01 General: Alert, Confused HEENT: Atraumatic, Other (Dry mucous membranes) Neck: Supple Respiratory: Clear to auscultation bilaterally, Normal air movement Cardiovascular: Abnormal pulses (Sinus tachycardia) Gastrointestinal: Normal bowel sounds, Soft and benign, No tenderness, No masses , No rebound, No guarding, Ascites (Ascites noted) Integumentary: Other (Ecchymosis in various stages to the extremities.) Neurological: Normal speech, Normal strength at 5/5 x4 extr, Normal tone, Other (Muscle atrophy noted throughout.) Laboratory Data at Discharge: WBC 6.5 K/uL (4.3-10.9) D 12/17/18 01:00 Hgb 12.6 g/dL (13.6-17.9) L 12/17/18 01:00 Hct 37.2 % (39.6-49.0) L D 12/17/18 01:00 Plt Count 102 K/uL (152-406) L D 12/17/18 01:00 PT 16.6 SECONDS (9.5-12.5) H 12/17/18 01:00 INR 1.43 12/17/18 01:00 APTT 31.5 SECONDS (24.3-36.9) 12/17/18 01:00 Sodium 138 mmol/L (136-145) 12/17/18 01:00 Potassium 4.4 mmol/L (3.5-5.1) 12/17/18 01:00 BUN 49 mg/dL (7-18) H 12/17/18 01:00 Creatinine 1.94 mg/dL (0.55-1.3) H 12/17/18 01:00 Glucose 171 mg/dL (74-106) H 12/17/18 01:00 Total Bilirubin 3.2 mg/dL (0.2-1.0) H 12/17/18 01:00 AST 24 U/L (15-37) 12/17/18 01:00 ALT 28 U/L (12-78) 12/17/18 01:00 Alkaline Phosphatase 195 U/L (45-117) H 12/17/18 01:00 Troponin I 0.02 ng/mL (0.0-0.045) 12/17/18 01:00 Lipase 181 U/L (73-393) 12/17/18 01:00 Home Medications: Citalopram [Celexa*] 40 mg PO DAILY 10/28/18 Midodrine HCl [Proamatine*] 10 mg PO BID 10/28/18 Rifaximin [Xifaxan] 1 tab PO BID 10/28/18 Ursodiol 1 tab PO BID 10/28/18 Hydrocortisone [Cortef*] 25 mg PO BID 12/04/18 Hydroxyzine HCl [Atarax] 25 mg PO PRN PRN 12/04/18 Multivitamin/Iron/Folic Acid [Centrum Adults Tablet] 1 tab PO DAILY 12/04/18 Ondansetron [Zofran (Odt)*] 4 mg PO PRN PRN 12/04/18 Pantoprazole [Protonix Tab*] 40 mg PO DAILY 12/04/18 Lactulose 30 ml PO QID #1 bottle 12/05/18 Patient Discharge Instructions: 1. Patient be transferred to [facility] for further treatment. 2. The patient presents with altered mental status secondary to hepatic encephalopathy with history of end-stage alcoholic cirrhosis complicated with dehydration and UTI. Blood cultures and urine cultures obtained. Patient on IV Rocephin. Patient continues with IV fluids. Patient alert but still confused. Patient currently on lactulose and xifaxan. Case discussed at length with his virology teacher at [facility]- . Family desires patient to be at the liver center. Patient likely still candidate for liver transplant as per discussion with Dr. Malave's notes concerning recommendation by Liver surgeon. Transfer initiated and discuss with Dr. Malave. Dr. Malave agrees with transfer. Case also discussed with hospitalist. Hospital has accepted. Patient to be transferred to higher level of care center to further evaluate and treat. Diet: Clear liquid diet, advanced to GI soft as tolerated Activity: Fall precautions Time spent managing pt's care (in minutes): 55
[2018-12-17 13:34] LABS: Hematocrit 33.4 % (39.6-49.0)
[2018-12-17 13:40] VITALS: O2SAT 96
[2018-12-17] MEDS ORDERED: FUROSEMIDE 40 MG/4 ML VIAL IV ONE (17:08)
[2018-12-17] MEDS ORDERED: D50W 25 GM/50 ML SYRINGE IV PRN (17:10)
[2018-12-17] MEDS ORDERED: GLUCAGON 1 MG/VIAL IM PRN (17:10)
[2018-12-17 17:16] VITALS: BP 149/88
[2018-12-17 17:55] VITALS: TEMP 99.6
[2018-12-17] MEDS ORDERED: ACETAMINOPHEN 500 MG TAB PO ONE (18:00)
[2018-12-17] MEDS ORDERED: PANTOPRAZOLE 40 MG INJ IVP SCH (21:00)
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
== END 2018-12-17 19:30 | disposition short-term general hospital (02) | DRG 442 ==
LOC: ER 00:41 → ERHOLD 02:42 → 4TH 03:43
PROVIDERS: ADMIT Internal Medicine; ATTEND Family Medicine
DX: K72.90 Hepatic failure, unspecified without coma (principal); N39.0 Urinary tract infection, site not specified; N17.9 Acute kidney failure, unspecified; E27.40 Unspecified adrenocortical insufficiency; K70.31 Alcoholic cirrhosis of liver with ascites; F10.10 Alcohol abuse, uncomplicated; E86.0 Dehydration; N18.3 Chronic kidney disease, stage 3 (moderate); D63.8 Anemia in other chronic diseases classified elsewhere; D69.6 Thrombocytopenia, unspecified; I95.9 Hypotension, unspecified; F32.9 Major depressive disorder, single episode, unspecified; K21.9 Gastro-esophageal reflux disease without esophagitis
CPT/HCPCS: 36415; 71045; 80048; 80076; 81003; 81015; 82140; 82550; 82962; 83605; 83690; 84145; 84484; 85014; 85018; 85025; 85610; 85730; 87040; 87086; 87088; 87804; 93005; 96361; 96365; 96375; 99285; C9113; J0696; J1720; J1940; J7030

== ENCOUNTER 2019-01-25 13:17 | Emergency (ER) | payer MEDICAID ==
--- OUTSIDE RECORDS SUMMARY | 2019-01-25 14:52 | XMS REPORT ---
:1965 [facility] Address [address] [place] [address] Dr. [place] [address] [place] [id number] Care Team Providers Name Role Phone BENTON REED Unavailable Unavailable CRISS SZYMANSKI Unavailable Unavailable BRANNON BONILLA Unavailable Unavailable INGRID [...] Atomic Results Result Comments COMPREHENSIVE METABOLIC PANEL 2018-12-28 06:32:00 Test Item Value Reference Range Comments TOTAL PROTEIN (BEAKER) (test 5.2 gm/dL 6.0-8.3 hdhp=416) ALBUMIN (BEAKER) (test 3.4 g/dL 3.5-5.0 yskj=5668) ALKALINE PHOSPHATASE 76 U/L 40-150 (BEAKER) (test pbpr=691) BILIRUBIN TOTAL (BEAKER) 2.4 mg/dL 0.2-1.2 (test rftd=643) SODIUM (BEAKER) (test 128 meq/L 136-145 brdz=232) POTASSIUM (BEAKER) (test 4.2 meq/L 3.5-5.1 xiuq=721) CHLORIDE (BEAKER) (test 100 meq/L 98-107 aupt=159) CO2 (BEAKER) (test axhf=937) 22 meq/L 22-29 BLOOD UREA NITROGEN (BEAKER) 41 mg/dL 7-21 (test niws=124) CREATININE (BEAKER) (test 1.51 mg/dL 0.57-1.25 vaoy=931) GLUCOSE RANDOM (BEAKER) 174 mg/dL 70-105 (test arci=090) CALCIUM (BEAKER) (test 9.7 mg/dL 8.4-10.2 uauu=885) AST (SGOT) (BEAKER) (test 12 U/L 5-34 wavd=832) ALT (SGPT) (BEAKER) (test 11 U/L 6-55 mvso=797) EGFR (BEAKER) (test 49 mL/min/1.73 sq m ESTIMATED GFR IS NOT gbjg=9462) ACCURATE CREATININE CLEARANCE IN PREDICTING GLOMERULAR FILTRATION RATE. ESTIMATED GFR IS NOT APPLICABLE FOR DIALYSIS PATIENTS. Specimen slightly ictericBODY FLUID CULTURE + GRAM [id number] 08:52:00 Test Item Value Reference Range Comments CULTURE (BEAKER) (test ryma=5847) No growth GRAM STAIN RESULT (BEAKER) (test 1+ White blood cells seen tvmk=9463) GRAM STAIN RESULT (BEAKER) (test No organisms seen ytuw=64135) [id number] 06:29:00 Test Item Value Reference Range Comments MAGNESIUM (BEAKER) (test djnh=910) 2.1 mg/dL 1.6-2.6 COMPREHENSIVE METABOLIC [id number] 06:29:00 Test Item Value Reference Range Comments TOTAL PROTEIN (BEAKER) 5.4 gm/dL 6.0-8.3 (test ficv=377) ALBUMIN (BEAKER) (test 3.6 g/dL 3.5-5.0 wbup=8734) ALKALINE PHOSPHATASE 79 U/L 40-150 (BEAKER) (test qfef=924) BILIRUBIN TOTAL (BEAKER) 2.3 mg/dL 0.2-1.2 (test tvtr=033) SODIUM (BEAKER) (test 128 meq/L 136-145 wyfl=094) POTASSIUM (BEAKER) (test 4.4 meq/L 3.5-5.1 xain=092) CHLORIDE (BEAKER) (test 100 meq/L 98-107 rpkv=005) CO2 (BEAKER) (test 21 meq/L 22-29 ugqh=141) BLOOD UREA NITROGEN 38 mg/dL 7-21 (BEAKER) (test wpnj=211) CREATININE (BEAKER) (test 1.48 mg/dL 0.57-1.25 mjey=371) GLUCOSE RANDOM (BEAKER) 166 mg/dL 70-105 (test rsox=165) CALCIUM (BEAKER) (test 10.1 mg/dL 8.4-10.2 ynji=681) AST (SGOT) (BEAKER) (test 13 U/L 5-34 lmjs=537) ALT (SGPT) (BEAKER) (test 14 U/L 6-55 xhqj=008) EGFR (BEAKER) (test 50 mL/min/1.73 sq m ESTIMATED GFR IS NOT pauv=9178) ACCURATE CREATININE CLEARANCE IN PREDICTING GLOMERULAR FILTRATION RATE. ESTIMATED GFR IS NOT APPLICABLE FOR DIALYSIS PATIENTS. CALCIUM, [id number] 05:54:00 Test Item Value Reference Range Comments CALCIUM IONIZED (BEAKER) (test rptz=394) 1.23 mmol/L 1.12-1.27 PH, BLOOD (BEAKER) (test zrgf=6849) 7.51 URINE PROTEIN ELECTROPHORESIS, [id number] 10:35:00 Test Item Value Reference Range Comments PROTEIN, URINE (BEAKER) (test < mg/dL 0-14 egwa=0525) ALBUMIN URINE ELP (BEAKER) 19.7 % (test fndv=6045) GAMMA GLOBULIN URINE (BEAKER) 80.3 % (test sbvh=2638) UPEP, ID-438 (BEAKER) (test iacc=9403) [id number]-[id number] (BEAKER) Kulwinder Mueller M.D. (test vkuo=8088) (electonic signature) Normal urine protein electrophoresisOSMOLALITY, [id number] 08:24:00 Test Item Value Reference Range Comments OSMOLALITY URINE (BEAKER) (test rrin=700) 565 mOsm/kg 40-1,400 SODIUM, RANDOM [id number] 07:54:00 Test Item Value Reference Range Comments SODIUM URINE (BEAKER) (test iqsg=799) < meq/L Reference Range: No NormalsCREATININE, RANDOM [id number] 07:53:00 Test Item Value Reference Range Comments CREATININE URINE (BEAKER) (test zfql=814) 92.2 mg/dL Reference Range: No NormalsPROTEIN, RANDOM [id number] 07:53:00 Test Item Value Reference Range Comments PROTEIN, URINE (BEAKER) (test esso=4054) 12 mg/dL 0-14 URINALYSIS W/ [id number] 07:52:00 Test Item Value Reference Range Comments COLOR (BEAKER) (test khqy=854) Yellow CLARITY (BEAKER) (test xdic=133) Hazy SPECIFIC GRAVITY UA (BEAKER) (test iwto=560) 1.019 1.001-1.035 PH UA (BEAKER) (test iwvl=459) 6.0 5.0-8.0 PROTEIN UA (BEAKER) (test rtzp=504) 10 mg/dL Negative GLUCOSE UA (BEAKER) (test teso=359) Negative Negative KETONES UA (BEAKER) (test drpw=875) Negative Negative BILIRUBIN UA (BEAKER) (test nzge=198) Negative Negative BLOOD UA (BEAKER) (test akrn=341) Negative Negative NITRITE UA (BEAKER) (test ebew=517) Negative Negative LEUKOCYTE ESTERASE UA (BEAKER) (test tddu=041) Large Negative UROBILINOGEN UA (BEAKER) (test ntfz=930) 0.2 mg/dL 0.2-1.0 RBC UA (BEAKER) (test qgwk=897) 3 /HPF WBC UA (BEAKER) (test rlfz=826) 16 /HPF SQUAMOUS EPITHELIAL (BEAKER) (test exmk=184) < /HPF HYALINE CASTS (BEAKER) (test cqep=669) 4 /LPF SOURCE(BEAKER) (test cpti=2361) SODIUM, RANDOM [id number] 07:48:00 Test Item Value Reference Range Comments SODIUM URINE (BEAKER) (test yhdd=301) < meq/L Reference Range: No NormalsEOSINOPHIL SMEAR, [id number] 07:44:00 Test Item Value Reference Range Comments EOSINOPHIL SMEAR, URINE (BEAKER) (test No EOS seen No EOS seen gnei=3093) CBC W/PLT COUNT & AUTO [id number] 06:39:00 Test Item Value Reference Range Comments WHITE BLOOD CELL COUNT (BEAKER) (test umni=906) 6.4 K/ L 3.5-10.5 RED BLOOD CELL COUNT (BEAKER) (test onxp=872) 2.57 M/ L 4.63-6.08 HEMOGLOBIN (BEAKER) (test hepe=101) 8.8 GM/DL 13.7-17.5 HEMATOCRIT (BEAKER) (test mozx=483) 25.6 % 40.1-51.0 MEAN CORPUSCULAR VOLUME (BEAKER) (test ohds=844) 99.6 fL 79.0-92.2 MEAN CORPUSCULAR HEMOGLOBIN (BEAKER) (test 34.2 pg 25.7-32.2 myuc=606) MEAN CORPUSCULAR HEMOGLOBIN CONC (BEAKER) (test 34.4 GM/DL 32.3-36.5 pxes=530) RED CELL DISTRIBUTION WIDTH (BEAKER) (test 17.6 % 11.6-14.4 xmkc=431) PLATELET COUNT (BEAKER) (test jskw=090) 54 K/CU MM 150-450 MEAN PLATELET VOLUME (BEAKER) (test lnxa=360) 9.6 fL 9.4-12.4 NUCLEATED RED BLOOD CELLS (BEAKER) (test 0 /100 WBC 0-0 qyob=388) NEUTROPHILS RELATIVE PERCENT (BEAKER) (test 87 % qpoa=127) LYMPHOCYTES RELATIVE PERCENT (BEAKER) (test 4 % ynzf=888) MONOCYTES RELATIVE PERCENT (BEAKER) (test 8 % riwx=439) EOSINOPHILS RELATIVE PERCENT (BEAKER) (test 0 % femk=134) BASOPHILS RELATIVE PERCENT (BEAKER) (test 0 % cbdj=647) NEUTROPHILS ABSOLUTE COUNT (BEAKER) (test 5.54 K/ L 1.78-5.38 fkpr=068) LYMPHOCYTES ABSOLUTE COUNT (BEAKER) (test 0.25 K/ L 1.32-3.57 gstn=814) MONOCYTES ABSOLUTE COUNT (BEAKER) (test vhhf=854) 0.53 K/ L 0.30-0.82 EOSINOPHILS ABSOLUTE COUNT (BEAKER) (test 0.00 K/ L 0.04-0.54 mqxr=992) BASOPHILS ABSOLUTE COUNT (BEAKER) (test jfte=071) 0.01 K/ L 0.01-0.08 IMMATURE GRANULOCYTES-RELATIVE PERCENT (BEAKER) 1 % 0-1 (test npzp=7396) [id number] 06:09:00 Test Item Value Reference Range Comments PHOSPHORUS (BEAKER) (test xbuf=942) 2.9 mg/dL 2.3-4.7 [id number] 06:09:00 Test Item Value Reference Range Comments MAGNESIUM (BEAKER) (test bkip=217) 2.1 mg/dL 1.6-2.6 COMPREHENSIVE METABOLIC [id number] 06:09:00 Test Item Value Reference Range Comments TOTAL PROTEIN (BEAKER) 5.5 gm/dL 6.0-8.3 (test xnwl=521) ALBUMIN (BEAKER) (test 3.8 g/dL 3.5-5.0 ptdm=7935) ALKALINE PHOSPHATASE 83 U/L 40-150 (BEAKER) (test usbl=979) BILIRUBIN TOTAL (BEAKER) 2.2 mg/dL 0.2-1.2 (test antn=092) SODIUM (BEAKER) (test 126 meq/L 136-145 xqtf=212) POTASSIUM (BEAKER) (test 4.1 meq/L 3.5-5.1 jilu=896) CHLORIDE (BEAKER) (test 100 meq/L 98-107 dkko=045) CO2 (BEAKER) (test 19 meq/L 22-29 dcrh=574) BLOOD UREA NITROGEN 36 mg/dL 7-21 (BEAKER) (test cieq=846) CREATININE (BEAKER) (test 1.55 mg/dL 0.57-1.25 lsie=940) GLUCOSE RANDOM (BEAKER) 180 mg/dL 70-105 (test tibx=809) CALCIUM (BEAKER) (test 10.0 mg/dL 8.4-10.2 fukn=050) AST (SGOT) (BEAKER) (test 13 U/L 5-34 sqmt=871) ALT (SGPT) (BEAKER) (test 13 U/L 6-55 kglq=672) EGFR (BEAKER) (test 47 mL/min/1.73 sq m ESTIMATED GFR IS NOT xebl=9063) ACCURATE CREATININE CLEARANCE IN PREDICTING GLOMERULAR FILTRATION RATE. ESTIMATED GFR IS NOT APPLICABLE FOR DIALYSIS PATIENTS. Specimen slightly ictericPROTHROMBIN [id number] 06:01:00 Test Item Value Reference Range Comments PROTIME (BEAKER) (test xyxi=656) 21.9 seconds 11.7-14.7 INR (BEAKER) (test axcj=160) 1.9 <=5.9 RECOMMENDED COUMADIN/WARFARIN INR THERAPY RANGESSTANDARD DOSE: 2.0 - 3.0 Includes: PROPHYLAXIS forvenous thrombosis, systemic embolization; TREATMENT for venous thrombosis and/or pulmonary embolus.HIGH RISK: Target INR is 2.5-3.5 for patients with mechanical heart valves.CALCIUM, [id number] 05:30:00 Test Item Value Reference Range Comments CALCIUM IONIZED (BEAKER) (test mawg=193) 1.25 mmol/L 1.12-1.27 PH, BLOOD (BEAKER) (test ybhe=2423) 7.45 BASIC METABOLIC [id number] 18:06:00 Test Item Value Reference Range Comments SODIUM (BEAKER) (test 130 meq/L 136-145 fwwa=557) POTASSIUM (BEAKER) (test 4.4 meq/L 3.5-5.1 uhfh=418) CHLORIDE (BEAKER) (test 100 meq/L 98-107 pcmg=463) CO2 (BEAKER) (test 22 meq/L 22-29 bfjn=528) BLOOD UREA NITROGEN 38 mg/dL 7-21 (BEAKER) (test ubll=064) CREATININE (BEAKER) (test 1.67 mg/dL 0.57-1.25 krzk=043) GLUCOSE RANDOM (BEAKER) 199 mg/dL 70-105 (test dxjf=640) CALCIUM (BEAKER) (test 10.8 mg/dL 8.4-10.2 kxuq=958) EGFR (BEAKER) (test 43 mL/min/1.73 sq m ESTIMATED GFR IS NOT ciox=7917) ACCURATE CREATININE CLEARANCE IN PREDICTING GLOMERULAR FILTRATION RATE. ESTIMATED GFR IS NOT APPLICABLE FOR DIALYSIS PATIENTS. [id number] 17:59:00 Test Item Value Reference Range Comments AMMONIA (BEAKER) (test rrev=526) 71 mol/L 18-72 CALCIUM, [id number] 06:28:00 Test Item Value Reference Range Comments CALCIUM IONIZED (BEAKER) (test psmt=722) 1.24 mmol/L 1.12-1.27 PH, BLOOD (BEAKER) (test dyzq=9255) 7.49 [id number] 05:39:00 Test Item Value Reference Range Comments PHOSPHORUS (BEAKER) (test ujcj=751) 2.2 mg/dL 2.3-4.7 [id number] 05:39:00 Test Item Value Reference Range Comments MAGNESIUM (BEAKER) (test bszx=338) 1.9 mg/dL 1.6-2.6 COMPREHENSIVE METABOLIC [id number] 05:39:00 Test Item Value Reference Range Comments TOTAL PROTEIN (BEAKER) 5.7 gm/dL 6.0-8.3 (test clrd=469) ALBUMIN (BEAKER) (test 4.1 g/dL 3.5-5.0 nlza=1147) ALKALINE PHOSPHATASE 85 U/L 40-150 (BEAKER) (test zjlj=400) BILIRUBIN TOTAL (BEAKER) 2.0 mg/dL 0.2-1.2 (test ylqd=199) SODIUM (BEAKER) (test 125 meq/L 136-145 bpja=530) POTASSIUM (BEAKER) (test 4.1 meq/L 3.5-5.1 qjlh=068) CHLORIDE (BEAKER) (test 98 meq/L 98-107 ycke=764) CO2 (BEAKER) (test 20 meq/L 22-29 srev=159) BLOOD UREA NITROGEN 38 mg/dL 7-21 (BEAKER) (test eqkf=800) CREATININE (BEAKER) (test 1.72 mg/dL 0.57-1.25 ayob=572) GLUCOSE RANDOM (BEAKER) 193 mg/dL 70-105 (test neqm=095) CALCIUM (BEAKER) (test 10.1 mg/dL 8.4-10.2 baff=539) AST (SGOT) (BEAKER) (test 13 U/L 5-34 ioqa=758) ALT (SGPT) (BEAKER) (test 12 U/L 6-55 vito=773) EGFR (BEAKER) (test 42 mL/min/1.73 sq m ESTIMATED GFR IS NOT oxrk=4312) ACCURATE CREATININE CLEARANCE IN PREDICTING GLOMERULAR FILTRATION RATE. ESTIMATED GFR IS NOT APPLICABLE FOR DIALYSIS PATIENTS. CBC W/PLT COUNT & AUTO [id number] 05:11:00 Test Item Value Reference Range Comments WHITE BLOOD CELL COUNT (BEAKER) (test bmtf=887) 4.9 K/ L 3.5-10.5 RED BLOOD CELL COUNT (BEAKER) (test ehcs=389) 2.36 M/ L 4.63-6.08 HEMOGLOBIN (BEAKER) (test lkrn=309) 7.9 GM/DL 13.7-17.5 HEMATOCRIT (BEAKER) (test xlol=384) 23.0 % 40.1-51.0 MEAN CORPUSCULAR VOLUME (BEAKER) (test zpea=691) 97.5 fL 79.0-92.2 MEAN CORPUSCULAR HEMOGLOBIN (BEAKER) (test 33.5 pg 25.7-32.2 msku=078) MEAN CORPUSCULAR HEMOGLOBIN CONC (BEAKER) (test 34.3 GM/DL 32.3-36.5 ueyv=379) RED CELL DISTRIBUTION WIDTH (BEAKER) (test 17.3 % 11.6-14.4 lfga=214) PLATELET COUNT (BEAKER) (test fowg=729) 45 K/CU MM 150-450 MEAN PLATELET VOLUME (BEAKER) (test dpeb=623) 10.0 fL 9.4-12.4 NUCLEATED RED BLOOD CELLS (BEAKER) (test 0 /100 WBC 0-0 zuqj=843) NEUTROPHILS RELATIVE PERCENT (BEAKER) (test 87 % qgey=176) LYMPHOCYTES RELATIVE PERCENT (BEAKER) (test 4 % yabp=205) MONOCYTES RELATIVE PERCENT (BEAKER) (test 8 % emqj=375) EOSINOPHILS RELATIVE PERCENT (BEAKER) (test 0 % ianv=086) BASOPHILS RELATIVE PERCENT (BEAKER) (test 0 % lidf=658) NEUTROPHILS ABSOLUTE COUNT (BEAKER) (test 4.27 K/ L 1.78-5.38 msli=285) LYMPHOCYTES ABSOLUTE COUNT (BEAKER) (test 0.19 K/ L 1.32-3.57 hlqt=969) MONOCYTES ABSOLUTE COUNT (BEAKER) (test uoad=597) 0.41 K/ L 0.30-0.82 EOSINOPHILS ABSOLUTE COUNT (BEAKER) (test 0.00 K/ L 0.04-0.54 qifm=693) BASOPHILS ABSOLUTE COUNT (BEAKER) (test lfgv=153) 0.00 K/ L 0.01-0.08 IMMATURE GRANULOCYTES-RELATIVE PERCENT (BEAKER) 1 % 0-1 (test xmdf=2243) PTH, [id number] 05:00:00 Test Item Value Reference Range Comments PARATHYROID HORMONE INTACT (BEAKER) (test 28.0 pg/mL 8.5-72.5 luby=336) PROTHROMBIN [id number] 04:48:00 Test Item Value Reference Range Comments PROTIME (BEAKER) (test jdez=837) 22.6 seconds 11.7-14.7 INR (BEAKER) (test wqpb=381) 2.0 <=5.9 RECOMMENDED COUMADIN/WARFARIN INR THERAPY RANGESSTANDARD DOSE: 2.0 - 3.0 Includes: PROPHYLAXIS forvenous thrombosis, systemic embolization; TREATMENT for venous thrombosis and/or pulmonary embolus.HIGH RISK: Target INR is 2.5-3.5 for patients with mechanical heart valves.BODY FLUID CELL COUNT WITH [id number] 21:53:00 Test Item Value Reference Range Comments APPEARANCE FLUID (BEAKER) (test bylm=184) Cloudy Clear COLOR FLUID (BEAKER) (test uwae=978) Jenna Colorless, Straw RBC FLUID (BEAKER) (test untd=537) 5467 /cu mm <=1 ADJUSTED WBC FLUID (BEAKER) (test opjq=0677) 66 /cu mm <=5 LINING CELLS (BEAKER) (test hecb=5959) 0 /cu mm <=1 NEUTROPHILS FLUID (BEAKER) (test dise=4838) 41 % LYMPHS FLUID (BEAKER) (test inqg=552) 10 % MONO/MACROPHAGE FLUID (BEAKER) (test iich=757) 48 % EOSINOPHILS FLUID (BEAKER) (test bamd=952) 1 % BASO FLUID (BEAKER) (test zbaj=824) 0 % CONTAINER BODY FLUID (BEAKER) (test unrx=1411) EDTA Tube CT, BRAIN, WITHOUT [id number] 18:15:00FINAL REPORT CT, BRAIN, WITHOUT CONTRAST INDICATION: persistent encephalopathy - please eval for acute process TECHNIQUE: Noncontrast axial imaging was obtained from the vertex to the skull base. Axial images were reconstructed using a bone algorithm. DOSE REDUCTION: Dose modulation, iterative reconstruction, and/or weight-based adjustment of the mA/kV was utilized to reduce the radiation dose to as low as reasonably achievable. COMPARISON: None. FINDINGS: Cerebral parenchyma:Diffuse parenchymal volume loss. Appearance of the white matter suggests chronic microvascular disease.Midline structures: Normally positioned.Cerebellum and brainstem: Commensurate volume loss.Ventricles: Normal volume.Extra-axial spaces: Unremarkable. Calvarium and skull base: Intact.Paranasal sinuses and mastoid air cells: Visible chambers are clear.Orbital contents: Included portions unremarkable. Additional findings: None. IMPRESSION: Chronic involutional changes without acute intracranial abnormality. If there is persistent clinical concern for intracranial pathology , MR examination is recommended for further characterization. Signed: JR Raman Robert MDReport Verified Date/Time: 12/24/2018 18:15:07 Reading Location: [facility] Radiology Reading Room U/S, [id number] 17: 50:00Reason for exam:->ascitesShould this be performed at the bedside?-> NoFINAL REPORT Ultrasound guided paracentesis Clinical History: Ascites LocalAnesthesia: 5 cc of 1% lidocaine Technique: Informed consent is obtained. The risks of pain, bleeding, infection, bowel perforation , injury to adjacent structures, and adverse medication reactions are discussed with the patient. After informed consent is obtained, the patient's abdomen is scanned. The right lower quadrant of the abdomen is selected for paracentesis. After the largest fluid pocket area is marked, and the anterior abdominal wall is evaluated with color Doppler to exclude presence of blood vessels traversing the area, the skin is prepped and draped in the usual sterile manner.After local anesthesia is achieved, a 5 Polish catheter is advanced into the peritoneal cavity. Approximately 2250 cc of serosanguineous fluid is drained, without immediate complications. Fluid is sent for analysis. Patient Disposition: The patient is discharged from the ultrasound department after the paracentesis, in good condition. Impression: Successful and uncomplicated ultrasound guided paracentesis is performed. Signed : Corinne Mott Verified Date/Time: 12/24/2018 17:50:42 Reading Location: [facility] B1 [id number] Ultrasound Reading Room Electronically signed by: CORINNE MOTT M.D.on 12/24/2018 05:50 PMBODY FLUID CULTURE + GRAM [id number] 10:02:00 Test Item Value Reference Range Comments CULTURE (BEAKER) (test kbiz=2386) No growth GRAM STAIN RESULT (BEAKER) (test <1+ WBCs jzak=7676) GRAM STAIN RESULT (BEAKER) (test No organisms seen gpwe=26929) CALCIUM, [id number] 07:41:00 Test Item Value Reference Range Comments CALCIUM IONIZED (BEAKER) (test lflc=842) 1.26 mmol/L 1.12-1.27 PH, BLOOD (BEAKER) (test gkge=7463) 7.47 [id number] 07:08:00 Test Item Value Reference Range Comments PHOSPHORUS (BEAKER) (test ddpy=676) 2.5 mg/dL 2.3-4.7 [id number] 07:08:00 Test Item Value Reference Range Comments MAGNESIUM (BEAKER) (test lrcj=265) 2.0 mg/dL 1.6-2.6 COMPREHENSIVE METABOLIC [id number] 07:08:00 Test Item Value Reference Range Comments TOTAL PROTEIN (BEAKER) 5.3 gm/dL 6.0-8.3 (test eedv=034) ALBUMIN (BEAKER) (test 3.7 g/dL 3.5-5.0 mcly=9658) ALKALINE PHOSPHATASE 84 U/L 40-150 (BEAKER) (test xwrd=295) BILIRUBIN TOTAL (BEAKER) 2.0 mg/dL 0.2-1.2 (test dhdf=190) SODIUM (BEAKER) (test 128 meq/L 136-145 mfka=651) POTASSIUM (BEAKER) (test 4.0 meq/L 3.5-5.1 djga=079) CHLORIDE (BEAKER) (test 101 meq/L 98-107 skoj=940) CO2 (BEAKER) (test 20 meq/L 22-29 iwhz=007) BLOOD UREA NITROGEN 37 mg/dL 7-21 (BEAKER) (test ixwo=182) CREATININE (BEAKER) (test 1.60 mg/dL 0.57-1.25 pqep=135) GLUCOSE RANDOM (BEAKER) 141 mg/dL 70-105 (test fokz=823) CALCIUM (BEAKER) (test 10.0 mg/dL 8.4-10.2 ibsy=772) AST (SGOT) (BEAKER) (test 12 U/L 5-34 vafm=876) ALT (SGPT) (BEAKER) (test 13 U/L 6-55 wfzi=310) EGFR (BEAKER) (test 45 mL/min/1.73 sq m ESTIMATED GFR IS NOT bykk=5827) ACCURATE CREATININE CLEARANCE IN PREDICTING GLOMERULAR FILTRATION RATE. ESTIMATED GFR IS NOT APPLICABLE FOR DIALYSIS PATIENTS. PROTHROMBIN [id number] 06:59:00 Test Item Value Reference Range Comments PROTIME (BEAKER) (test ssvi=159) 21.6 seconds 11.7-14.7 INR (BEAKER) (test oger=651) 1.8 <=5.9 RECOMMENDED COUMADIN/WARFARIN INR THERAPY RANGESSTANDARD DOSE: 2.0 - 3.0 Includes: PROPHYLAXIS forvenous thrombosis, systemic embolization; TREATMENT for venous thrombosis and/or pulmonary embolus.HIGH RISK: Target INR is 2.5-3.5 for patients with mechanical heart valves.CBC W/PLT COUNT & AUTO [id number] 06:49:00 Test Item Value Reference Range Comments WHITE BLOOD CELL COUNT (BEAKER) (test lypf=700) 4.9 K/ L 3.5-10.5 RED BLOOD CELL COUNT (BEAKER) (test dout=173) 2.41 M/ L 4.63-6.08 HEMOGLOBIN (BEAKER) (test wlkh=046) 8.0 GM/DL 13.7-17.5 HEMATOCRIT (BEAKER) (test ohvu=301) 23.8 % 40.1-51.0 MEAN CORPUSCULAR VOLUME (BEAKER) (test wtsh=548) 98.8 fL 79.0-92.2 MEAN CORPUSCULAR HEMOGLOBIN (BEAKER) (test 33.2 pg 25.7-32.2 qaiy=020) MEAN CORPUSCULAR HEMOGLOBIN CONC (BEAKER) (test 33.6 GM/DL 32.3-36.5 vlsx=513) RED CELL DISTRIBUTION WIDTH (BEAKER) (test 17.2 % 11.6-14.4 crqe=787) PLATELET COUNT (BEAKER) (test adri=060) 44 K/CU MM 150-450 MEAN PLATELET VOLUME (BEAKER) (test hbwu=679) 10.4 fL 9.4-12.4 NUCLEATED RED BLOOD CELLS (BEAKER) (test 0 /100 WBC 0-0 tszx=726) NEUTROPHILS RELATIVE PERCENT (BEAKER) (test 84 % vizs=598) LYMPHOCYTES RELATIVE PERCENT (BEAKER) (test 5 % rpay=519) MONOCYTES RELATIVE PERCENT (BEAKER) (test 10 % tlbo=153) EOSINOPHILS RELATIVE PERCENT (BEAKER) (test 0 % xxha=750) BASOPHILS RELATIVE PERCENT (BEAKER) (test 0 % ihkt=623) NEUTROPHILS ABSOLUTE COUNT (BEAKER) (test 4.12 K/ L 1.78-5.38 xfab=391) LYMPHOCYTES ABSOLUTE COUNT (BEAKER) (test 0.26 K/ L 1.32-3.57 mryf=309) MONOCYTES ABSOLUTE COUNT (BEAKER) (test mqwa=345) 0.50 K/ L 0.30-0.82 EOSINOPHILS ABSOLUTE COUNT (BEAKER) (test 0.01 K/ L 0.04-0.54 rmpa=641) BASOPHILS ABSOLUTE COUNT (BEAKER) (test gvjr=290) 0.00 K/ L 0.01-0.08 IMMATURE GRANULOCYTES-RELATIVE PERCENT (BEAKER) 1 % 0-1 (test ixsa=3736) BLOOD [id number] 01:00:00 Test Item Value Reference Range Comments CULTURE (BEAKER) (test dsob=5552) No growth in 5 days BLOOD [id number] 01:00:00 Test Item Value Reference Range Comments CULTURE (BEAKER) (test zpne=1195) No growth in 5 days CBC W/PLT COUNT & AUTO [id number] 04:57:00 Test Item Value Reference Range Comments WHITE BLOOD CELL COUNT (BEAKER) (test sgib=987) 4.7 K/ L 3.5-10.5 RED BLOOD CELL COUNT (BEAKER) (test lqtd=782) 2.35 M/ L 4.63-6.08 HEMOGLOBIN (BEAKER) (test exbw=063) 7.9 GM/DL 13.7-17.5 HEMATOCRIT (BEAKER) (test xjwx=372) 23.4 % 40.1-51.0 MEAN CORPUSCULAR VOLUME (BEAKER) (test tjyh=157) 99.6 fL 79.0-92.2 MEAN CORPUSCULAR HEMOGLOBIN (BEAKER) (test 33.6 pg 25.7-32.2 hwsa=311) MEAN CORPUSCULAR HEMOGLOBIN CONC (BEAKER) (test 33.8 GM/DL 32.3-36.5 ggpw=075) RED CELL DISTRIBUTION WIDTH (BEAKER) (test 17.4 % 11.6-14.4 ilgx=844) PLATELET COUNT (BEAKER) (test jdtn=681) 36 K/CU MM 150-450 MEAN PLATELET VOLUME (BEAKER) (test bwwn=386) 10.5 fL 9.4-12.4 NUCLEATED RED BLOOD CELLS (BEAKER) (test 0 /100 WBC 0-0 aogw=687) NEUTROPHILS RELATIVE PERCENT (BEAKER) (test 84 % zrej=921) LYMPHOCYTES RELATIVE PERCENT (BEAKER) (test 4 % eefy=449) MONOCYTES RELATIVE PERCENT (BEAKER) (test 11 % jqkq=608) EOSINOPHILS RELATIVE PERCENT (BEAKER) (test 0 % wrwc=774) BASOPHILS RELATIVE PERCENT (BEAKER) (test 0 % mdnd=777) NEUTROPHILS ABSOLUTE COUNT (BEAKER) (test 3.97 K/ L 1.78-5.38 rxjs=001) LYMPHOCYTES ABSOLUTE COUNT (BEAKER) (test 0.20 K/ L 1.32-3.57 xxha=540) MONOCYTES ABSOLUTE COUNT (BEAKER) (test nwce=414) 0.53 K/ L 0.30-0.82 EOSINOPHILS ABSOLUTE COUNT (BEAKER) (test 0.00 K/ L 0.04-0.54 fzih=088) BASOPHILS ABSOLUTE COUNT (BEAKER) (test eaxh=336) 0.00 K/ L 0.01-0.08 IMMATURE GRANULOCYTES-RELATIVE PERCENT (BEAKER) 1 % 0-1 (test wlqd=9469) CALCIUM, [id number] 04:48:00 Test Item Value Reference Range Comments CALCIUM IONIZED (BEAKER) (test yphg=911) 1.33 mmol/L 1.12-1.27 PH, BLOOD (BEAKER) (test zfsq=9807) 7.36 [id number] 04:41:00 Test Item Value Reference Range Comments PHOSPHORUS (BEAKER) (test zafl=692) 2.4 mg/dL 2.3-4.7 [id number] 04:41:00 Test Item Value Reference Range Comments MAGNESIUM (BEAKER) (test opcz=821) 2.0 mg/dL 1.6-2.6 COMPREHENSIVE METABOLIC [id number] 04:41:00 Test Item Value Reference Range Comments TOTAL PROTEIN (BEAKER) 5.5 gm/dL 6.0-8.3 (test lsed=757) ALBUMIN (BEAKER) (test 4.0 g/dL 3.5-5.0 nzhn=9575) ALKALINE PHOSPHATASE 79 U/L 40-150 (BEAKER) (test dcar=459) BILIRUBIN TOTAL (BEAKER) 1.9 mg/dL 0.2-1.2 (test hwoo=084) SODIUM (BEAKER) (test 128 meq/L 136-145 wnpa=265) POTASSIUM (BEAKER) (test 4.3 meq/L 3.5-5.1 mwzf=472) CHLORIDE (BEAKER) (test 102 meq/L 98-107 abiq=002) CO2 (BEAKER) (test 19 meq/L 22-29 sbms=117) BLOOD UREA NITROGEN 37 mg/dL 7-21 (BEAKER) (test stzj=724) CREATININE (BEAKER) (test 1.77 mg/dL 0.57-1.25 ziqz=821) GLUCOSE RANDOM (BEAKER) 150 mg/dL 70-105 (test ahjk=649) CALCIUM (BEAKER) (test 10.2 mg/dL 8.4-10.2 avpg=078) AST (SGOT) (BEAKER) (test 12 U/L 5-34 sfte=000) ALT (SGPT) (BEAKER) (test 11 U/L 6-55 sicu=875) EGFR (BEAKER) (test 40 mL/min/1.73 sq m ESTIMATED GFR IS NOT kfxn=1500) ACCURATE CREATININE CLEARANCE IN PREDICTING GLOMERULAR FILTRATION RATE. ESTIMATED GFR IS NOT APPLICABLE FOR DIALYSIS PATIENTS. PROTHROMBIN [id number] 04:29:00 Test Item Value Reference Range Comments PROTIME (BEAKER) (test ldhj=327) 22.2 seconds 11.7-14.7 INR (BEAKER) (test bkht=934) 1.9 <=5.9 RECOMMENDED COUMADIN/WARFARIN INR THERAPY RANGESSTANDARD DOSE: 2.0 - 3.0 Includes: PROPHYLAXIS forvenous thrombosis, systemic embolization; TREATMENT for venous thrombosis and/or pulmonary embolus.HIGH RISK: Target INR is 2.5-3.5 for patients with mechanical heart valves.CALCIUM, [id number] 05:49:00 Test Item Value Reference Range Comments CALCIUM IONIZED (BEAKER) (test ubpv=022) 1.33 mmol/L 1.12-1.27 PH, BLOOD (BEAKER) (test qymh=6384) 7.30 PROTHROMBIN [id number] 05:40:00 Test Item Value Reference Range Comments PROTIME (BEAKER) (test dxnc=496) 22.7 seconds 11.7-14.7 INR (BEAKER) (test pzlj=866) 2.0 <=5.9 RECOMMENDED COUMADIN/WARFARIN INR THERAPY RANGESSTANDARD DOSE: 2.0 - 3.0 Includes: PROPHYLAXIS forvenous thrombosis, systemic embolization; TREATMENT for venous thrombosis and/or pulmonary embolus.HIGH RISK: Target INR is 2.5-3.5 for patients with mechanical heart valves.[id number] 05:20:00 Test Item Value Reference Range Comments PHOSPHORUS (BEAKER) (test smua=256) 2.4 mg/dL 2.3-4.7 [id number] 05:20:00 Test Item Value Reference Range Comments MAGNESIUM (BEAKER) (test xbmi=471) 2.3 mg/dL 1.6-2.6 COMPREHENSIVE METABOLIC [id number] 05:20:00 Test Item Value Reference Range Comments TOTAL PROTEIN (BEAKER) 5.5 gm/dL 6.0-8.3 (test ldoq=559) ALBUMIN (BEAKER) (test 3.8 g/dL 3.5-5.0 bqrw=9171) ALKALINE PHOSPHATASE 84 U/L 40-150 (BEAKER) (test hcru=666) BILIRUBIN TOTAL (BEAKER) 1.9 mg/dL 0.2-1.2 (test iejt=642) SODIUM (BEAKER) (test 129 meq/L 136-145 ldnz=510) POTASSIUM (BEAKER) (test 4.8 meq/L 3.5-5.1 czfj=553) CHLORIDE (BEAKER) (test 103 meq/L 98-107 pjfm=537) CO2 (BEAKER) (test 20 meq/L 22-29 znft=806) BLOOD UREA NITROGEN 41 mg/dL 7-21 (BEAKER) (test uwkg=703) CREATININE (BEAKER) (test 1.66 mg/dL 0.57-1.25 ymyo=101) GLUCOSE RANDOM (BEAKER) 139 mg/dL 70-105 (test rowd=749) CALCIUM (BEAKER) (test 10.0 mg/dL 8.4-10.2 sxuy=659) AST (SGOT) (BEAKER) (test 11 U/L 5-34 ibvo=610) ALT (SGPT) (BEAKER) (test 13 U/L 6-55 zwfo=361) EGFR (BEAKER) (test 44 mL/min/1.73 sq m ESTIMATED GFR IS NOT akpr=8883) ACCURATE CREATININE CLEARANCE IN PREDICTING GLOMERULAR FILTRATION RATE. ESTIMATED GFR IS NOT APPLICABLE FOR DIALYSIS PATIENTS. [id number] 05:09:00 Test Item Value Reference Range Comments AMMONIA (BEAKER) (test qcuu=060) 73 mol/L 18-72 CBC W/PLT COUNT & AUTO [id number] 04:58:00 Test Item Value Reference Range Comments WHITE BLOOD CELL COUNT (BEAKER) (test wval=691) 5.0 K/ L 3.5-10.5 RED BLOOD CELL COUNT (BEAKER) (test cckl=213) 2.41 M/ L 4.63-6.08 HEMOGLOBIN (BEAKER) (test saom=971) 8.1 GM/DL 13.7-17.5 HEMATOCRIT (BEAKER) (test yigz=172) 24.3 % 40.1-51.0 MEAN CORPUSCULAR VOLUME (BEAKER) (test wfgl=710) 100.8 fL 79.0-92.2 MEAN CORPUSCULAR HEMOGLOBIN (BEAKER) (test 33.6 pg 25.7-32.2 ztle=543) MEAN CORPUSCULAR HEMOGLOBIN CONC (BEAKER) (test 33.3 GM/DL 32.3-36.5 tunu=616) RED CELL DISTRIBUTION WIDTH (BEAKER) (test 17.2 % 11.6-14.4 gtbz=544) PLATELET COUNT (BEAKER) (test jhio=748) 33 K/CU MM 150-450 MEAN PLATELET VOLUME (BEAKER) (test hcgf=642) 10.0 fL 9.4-12.4 NUCLEATED RED BLOOD CELLS (BEAKER) (test 0 /100 WBC 0-0 vzbn=186) NEUTROPHILS RELATIVE PERCENT (BEAKER) (test 81 % cbwd=540) LYMPHOCYTES RELATIVE PERCENT (BEAKER) (test 6 % trdt=475) MONOCYTES RELATIVE PERCENT (BEAKER) (test 13 % vbsg=122) EOSINOPHILS RELATIVE PERCENT (BEAKER) (test 0 % rjcg=981) BASOPHILS RELATIVE PERCENT (BEAKER) (test 0 % xrli=655) NEUTROPHILS ABSOLUTE COUNT (BEAKER) (test 4.02 K/ L 1.78-5.38 tjek=330) LYMPHOCYTES ABSOLUTE COUNT (BEAKER) (test 0.28 K/ L 1.32-3.57 wozs=826) MONOCYTES ABSOLUTE COUNT (BEAKER) (test txcl=564) 0.65 K/ L 0.30-0.82 EOSINOPHILS ABSOLUTE COUNT (BEAKER) (test 0.01 K/ L 0.04-0.54 wbrc=228) BASOPHILS ABSOLUTE COUNT (BEAKER) (test rmug=885) 0.00 K/ L 0.01-0.08 IMMATURE GRANULOCYTES-RELATIVE PERCENT (BEAKER) 0 % 0-1 (test exeo=5659) [id number] 22:53:00Medical Cytology Report Case: [id number] Authorizing Provider: Fer Castellanos Collected: 12/18/2018 1349 Felton Liu MD OrderingLocation: [address] Received: 2018 0954 Service Pathologist: Mata Pickard MD Specimen: Peritoneal Fluid PERITONEAL FLUID (CYTOSPINS) : - NEGATIVE FOR MALIGNANCY ACUTE INFLAMMATION PRESENT Signing Pathologist Direct Phone Line: [phone] signed by Mata Pickard MD on 12/21/2018 at 10:53 [id number], cirrhosisPERITONEAL [id number] mls yellow; 4 cytospinsCollected: [id number]: [id number].SatisfactoryK[facility], Department of Pathology, [address] [place] [address], [facility], [facility] of Pathology, [address] [place] [address], HlgvopHighland Springs [facility], Department of Pathology, [address] [place] [address], WMMJ FLUID CELL COUNT WITH [id number] 19:53:00 Test Item Value Reference Range Comments APPEARANCE FLUID (BEAKER) (test bxah=284) Hazy Clear COLOR FLUID (BEAKER) (test stxh=999) Straw Colorless, Straw RBC FLUID (BEAKER) (test chhe=684) 290 /cu mm <=1 ADJUSTED WBC FLUID (BEAKER) (test pdod=1582) 118 /cu mm <=5 LINING CELLS (BEAKER) (test ieem=0151) 2 /cu mm <=1 NEUTROPHILS FLUID (BEAKER) (test mdum=0171) 45 % LYMPHS FLUID (BEAKER) (test actg=337) 11 % MONO/MACROPHAGE FLUID (BEAKER) (test isuu=388) 44 % EOSINOPHILS FLUID (BEAKER) (test ikng=812) 0 % BASO FLUID (BEAKER) (test dsjh=656) 0 % CONTAINER BODY FLUID (BEAKER) (test csug=7681) EDTA Tube PROTEIN ELECTROPHORESIS, [id number] 17:38:00 Test Item Value Reference Range Comments ALBUMIN FRACTION (BEAKER) 3.4 g/dL 3.5-5.5 (test fwye=126) ALPHA 1 FRACTION (BEAKER) 0.1 g/dL 0.2-0.4 (test nwvc=587) ALPHA 2 FRACTION (BEAKER) 0.4 g/dL 0.5-0.9 (test lvip=360) BETA FRACTION (BEAKER) (test 0.4 g/dL 0.6-1.1 mhnp=967) GAMMA GLOBULIN FRACTION 0.7 g/dL 0.7-1.7 (BEAKER) (test mkom=528) INTERPRETATION-119 (BEAKER) Mild decrease in globulin alpha (test zmpl=3039) and beta globulin fractions in a nonspecific pattern. No monoclonal bands detected. [id number] (BEAKER) Traci Royal MD (test ijkd=2683) (electronic signature) PROTEIN TOTAL SERUM, SPEP 5.1 gm/dL 6.0-8.3 (BEAKER) (test eikw=1632) U/S, [id number] 17:24:00Reason for exam:->ascitesShould this be performed at the bedside?->NoFINAL REPORT Paracentesis: Performing MD: Meggan Escoto M.D.Preoperative Diagnosis: AscitesPostoperative Diagnosis: AscitesAssistant: noneSpecimen: As requestedEstimated Blood Loss: less than 10 ccComplications: noneAnesthesia: local 2% subcutaneously at the insertion site Grafts or Implants: noneModality: sonographySedation: noneApproach: Right lower quadrant, anterior [...] of the right lower quadrant peritoneal space. 7800 cc of serous fluid was removed. Signed: Meggan Escoto Verified Date/Time: 12/21 17:24:34 Reading Location: [facility] [id number] Ultrasound Reading Room BODY FLUID CULTURE + GRAM [id number] 14:03:00 Test Item Value Reference Range Comments CULTURE (BEAKER) (test jlcx=6483) No growth GRAM STAIN RESULT (BEAKER) (test 2+ WBCs oxvv=6233) GRAM STAIN RESULT (BEAKER) (test No organisms seen cnvo=30367) CALCIUM, [id number] 07:16:00 Test Item Value Reference Range Comments CALCIUM IONIZED (BEAKER) (test wuth=670) 1.23 mmol/L 1.12-1.27 PH, BLOOD (BEAKER) (test ljaj=6299) 7.46 [id number] 05:27:00 Test Item Value Reference Range Comments PHOSPHORUS (BEAKER) (test avca=958) 2.6 mg/dL 2.3-4.7 [id number] 05:27:00 Test Item Value Reference Range Comments MAGNESIUM (BEAKER) (test mjop=626) 2.2 mg/dL 1.6-2.6 COMPREHENSIVE METABOLIC [id number] 05:27:00 Test Item Value Reference Range Comments TOTAL PROTEIN (BEAKER) 5.1 gm/dL 6.0-8.3 (test zvge=037) ALBUMIN (BEAKER) (test 3.3 g/dL 3.5-5.0 tvvt=5089) ALKALINE PHOSPHATASE 84 U/L 40-150 (BEAKER) (test irli=311) BILIRUBIN TOTAL (BEAKER) 2.1 mg/dL 0.2-1.2 (test zvfo=028) SODIUM (BEAKER) (test 128 meq/L 136-145 qdjo=638) POTASSIUM (BEAKER) (test 4.2 meq/L 3.5-5.1 uawr=524) CHLORIDE (BEAKER) (test 103 meq/L 98-107 ueoe=762) CO2 (BEAKER) (test 19 meq/L 22-29 zpsn=964) BLOOD UREA NITROGEN 48 mg/dL 7-21 (BEAKER) (test vkgt=609) CREATININE (BEAKER) (test 1.58 mg/dL 0.57-1.25 xkdf=355) GLUCOSE RANDOM (BEAKER) 132 mg/dL 70-105 (test zspv=734) CALCIUM (BEAKER) (test 10.0 mg/dL 8.4-10.2 bskd=665) AST (SGOT) (BEAKER) (test 14 U/L 5-34 bcjs=384) ALT (SGPT) (BEAKER) (test 14 U/L 6-55 bwcr=483) EGFR (BEAKER) (test 46 mL/min/1.73 sq m ESTIMATED GFR IS NOT zyvu=8534) ACCURATE CREATININE CLEARANCE IN PREDICTING GLOMERULAR FILTRATION RATE. ESTIMATED GFR IS NOT APPLICABLE FOR DIALYSIS PATIENTS. PROTHROMBIN [id number] 05:15:00 Test Item Value Reference Range Comments PROTIME (BEAKER) (test wlkc=931) 21.5 seconds 11.7-14.7 INR (BEAKER) (test zoqt=171) 1.9 <=5.9 RECOMMENDED COUMADIN/WARFARIN INR THERAPY RANGESSTANDARD DOSE: 2.0 - 3.0 Includes: PROPHYLAXIS forvenous thrombosis, systemic embolization; TREATMENT for venous thrombosis and/or pulmonary embolus.HIGH RISK: Target INR is 2.5-3.5 for patients with mechanical heart valves.CBC W/PLT COUNT & AUTO [id number] 05:06:00 Test Item Value Reference Range Comments WHITE BLOOD CELL COUNT (BEAKER) (test zvii=392) 5.1 K/ L 3.5-10.5 RED BLOOD CELL COUNT (BEAKER) (test pgjt=450) 2.34 M/ L 4.63-6.08 HEMOGLOBIN (BEAKER) (test zrfd=866) 7.9 GM/DL 13.7-17.5 HEMATOCRIT (BEAKER) (test uzvm=868) 22.8 % 40.1-51.0 MEAN CORPUSCULAR VOLUME (BEAKER) (test wudq=987) 97.4 fL 79.0-92.2 MEAN CORPUSCULAR HEMOGLOBIN (BEAKER) (test 33.8 pg 25.7-32.2 wqos=546) MEAN CORPUSCULAR HEMOGLOBIN CONC (BEAKER) (test 34.6 GM/DL 32.3-36.5 zyvc=674) RED CELL DISTRIBUTION WIDTH (BEAKER) (test 17.7 % 11.6-14.4 qqoc=870) PLATELET COUNT (BEAKER) (test epoo=679) 37 K/CU MM 150-450 MEAN PLATELET VOLUME (BEAKER) (test zncz=039) 10.0 fL 9.4-12.4 NUCLEATED RED BLOOD CELLS (BEAKER) (test 0 /100 WBC 0-0 bysh=432) NEUTROPHILS RELATIVE PERCENT (BEAKER) (test 79 % xkuw=847) LYMPHOCYTES RELATIVE PERCENT (BEAKER) (test 6 % eqjo=418) MONOCYTES RELATIVE PERCENT (BEAKER) (test 15 % ojok=210) EOSINOPHILS RELATIVE PERCENT (BEAKER) (test 0 % ciae=524) BASOPHILS RELATIVE PERCENT (BEAKER) (test 0 % abne=685) NEUTROPHILS ABSOLUTE COUNT (BEAKER) (test 4.04 K/ L 1.78-5.38 dvtu=053) LYMPHOCYTES ABSOLUTE COUNT (BEAKER) (test 0.29 K/ L 1.32-3.57 hbnh=735) MONOCYTES ABSOLUTE COUNT (BEAKER) (test kfbj=757) 0.77 K/ L 0.30-0.82 EOSINOPHILS ABSOLUTE COUNT (BEAKER) (test 0.02 K/ L 0.04-0.54 clwn=166) BASOPHILS ABSOLUTE COUNT (BEAKER) (test vkpy=278) 0.00 K/ L 0.01-0.08 IMMATURE GRANULOCYTES-RELATIVE PERCENT (BEAKER) 0 % 0-1 (test ugrf=8275) VITAMIN D, [id number] 08:24:00 Test Item Value Reference Range Comments VITAMIN D 25-OH (BEAKER) (test jtoi=3313) 5.2 ng/mL 6.6-49.9 Effective 08/06/2017: Reference Range ChangeNew: 6.6-49.9 ng/mL Previous: 13.0 -47.8 ng/mLRecommended Vitamin D Target Range: 30.0-40.0 ng/mLT4, [id number] 08:19:00 Test Item Value Reference Range Comments FREE T4 (BEAKER) (test bwlo=311) 0.69 ng/dL 0.70-1.48 TSH/FREE T4 IF [id number] 07:46:00 Test Item Value Reference Range Comments THYROID STIMULATING HORMONE (BEAKER) (test 0.18 uIU/mL 0.35-4.94 wvfr=502) CALCIUM, [id number] 07:25:00 Test Item Value Reference Range Comments CALCIUM IONIZED (BEAKER) (test hygu=031) 1.29 mmol/L 1.12-1.27 PH, BLOOD (BEAKER) (test qrub=2252) 7.44 PTH, [id number] 07:25:00 Test Item Value Reference Range Comments PARATHYROID HORMONE INTACT (BEAKER) (test 25.4 pg/mL 8.5-72.5 uxxn=256) [id number] 07:22:00 Test Item Value Reference Range Comments PHOSPHORUS (BEAKER) (test xdil=907) 2.6 mg/dL 2.3-4.7 [id number] 07:22:00 Test Item Value Reference Range Comments MAGNESIUM (BEAKER) (test mifm=116) 2.3 mg/dL 1.6-2.6 COMPREHENSIVE METABOLIC [id number] 07:22:00 Test Item Value Reference Range Comments TOTAL PROTEIN (BEAKER) 5.2 gm/dL 6.0-8.3 (test igtl=182) ALBUMIN (BEAKER) (test 3.5 g/dL 3.5-5.0 zpei=6923) ALKALINE PHOSPHATASE 85 U/L 40-150 (BEAKER) (test iqbe=260) BILIRUBIN TOTAL (BEAKER) 1.9 mg/dL 0.2-1.2 (test vtik=855) SODIUM (BEAKER) (test 127 meq/L 136-145 oelv=179) POTASSIUM (BEAKER) (test 4.2 meq/L 3.5-5.1 ycxb=675) CHLORIDE (BEAKER) (test 101 meq/L 98-107 nwyg=476) CO2 (BEAKER) (test 19 meq/L 22-29 jftl=865) BLOOD UREA NITROGEN 51 mg/dL 7-21 (BEAKER) (test elxc=122) CREATININE (BEAKER) (test 1.62 mg/dL 0.57-1.25 vert=390) GLUCOSE RANDOM (BEAKER) 124 mg/dL 70-105 (test ymwr=560) CALCIUM (BEAKER) (test 10.3 mg/dL 8.4-10.2 bvcg=592) AST (SGOT) (BEAKER) (test 13 U/L 5-34 dxjz=011) ALT (SGPT) (BEAKER) (test 14 U/L 6-55 ajrt=039) EGFR (BEAKER) (test 45 mL/min/1.73 sq m ESTIMATED GFR IS NOT jxol=8394) ACCURATE CREATININE CLEARANCE IN PREDICTING GLOMERULAR FILTRATION RATE. ESTIMATED GFR IS NOT APPLICABLE FOR DIALYSIS PATIENTS. PROTHROMBIN [id number] 07:20:00 Test Item Value Reference Range Comments PROTIME (BEAKER) (test fwoo=495) 22.2 seconds 11.7-14.7 INR (BEAKER) (test lxqi=905) 2.0 <=5.9 RECOMMENDED COUMADIN/WARFARIN INR THERAPY RANGESSTANDARD DOSE: 2.0 - 3.0 Includes: PROPHYLAXIS forvenous thrombosis, systemic embolization; TREATMENT for venous thrombosis and/or pulmonary embolus.HIGH RISK: Target INR is 2.5-3.5 for patients with mechanical heart valves.CBC W/PLT COUNT & AUTO [id number] 07:12:00 Test Item Value Reference Range Comments WHITE BLOOD CELL COUNT (BEAKER) (test lxyo=173) 4.9 K/ L 3.5-10.5 RED BLOOD CELL COUNT (BEAKER) (test cjhm=428) 2.32 M/ L 4.63-6.08 HEMOGLOBIN (BEAKER) (test uvqb=327) 7.8 GM/DL 13.7-17.5 HEMATOCRIT (BEAKER) (test duec=140) 23.1 % 40.1-51.0 MEAN CORPUSCULAR VOLUME (BEAKER) (test yrwu=013) 99.6 fL 79.0-92.2 MEAN CORPUSCULAR HEMOGLOBIN (BEAKER) (test 33.6 pg 25.7-32.2 rzuh=135) MEAN CORPUSCULAR HEMOGLOBIN CONC (BEAKER) (test 33.8 GM/DL 32.3-36.5 slrm=806) RED CELL DISTRIBUTION WIDTH (BEAKER) (test 18.1 % 11.6-14.4 bhsx=992) PLATELET COUNT (BEAKER) (test vkof=378) 31 K/CU MM 150-450 MEAN PLATELET VOLUME (BEAKER) (test lxcm=284) 10.8 fL 9.4-12.4 NUCLEATED RED BLOOD CELLS (BEAKER) (test 0 /100 WBC 0-0 nsup=273) NEUTROPHILS RELATIVE PERCENT (BEAKER) (test 83 % jzkr=816) LYMPHOCYTES RELATIVE PERCENT (BEAKER) (test 4 % aidx=485) MONOCYTES RELATIVE PERCENT (BEAKER) (test 12 % vomy=911) EOSINOPHILS RELATIVE PERCENT (BEAKER) (test 0 % pmpb=206) BASOPHILS RELATIVE PERCENT (BEAKER) (test 0 % paxh=621) NEUTROPHILS ABSOLUTE COUNT (BEAKER) (test 4.03 K/ L 1.78-5.38 mqon=098) LYMPHOCYTES ABSOLUTE COUNT (BEAKER) (test 0.21 K/ L 1.32-3.57 kdhl=058) MONOCYTES ABSOLUTE COUNT (BEAKER) (test aeof=941) 0.59 K/ L 0.30-0.82 EOSINOPHILS ABSOLUTE COUNT (BEAKER) (test 0.00 K/ L 0.04-0.54 jxiu=772) BASOPHILS ABSOLUTE COUNT (BEAKER) (test olql=255) 0.00 K/ L 0.01-0.08 IMMATURE GRANULOCYTES-RELATIVE PERCENT (BEAKER) 1 % 0-1 (test pmjv=5652) CBC W/PLT COUNT & AUTO [id number] 08:27:00 Test Item Value Reference Range Comments WHITE BLOOD CELL COUNT (BEAKER) (test hwqx=073) 6.7 K/ L 3.5-10.5 RED BLOOD CELL COUNT (BEAKER) (test zsrp=613) 2.52 M/ L 4.63-6.08 HEMOGLOBIN (BEAKER) (test olsu=880) 8.4 GM/DL 13.7-17.5 HEMATOCRIT (BEAKER) (test leqn=440) 25.6 % 40.1-51.0 MEAN CORPUSCULAR VOLUME (BEAKER) (test knqm=304) 101.6 fL 79.0-92.2 MEAN CORPUSCULAR HEMOGLOBIN (BEAKER) (test 33.3 pg 25.7-32.2 qcrj=423) MEAN CORPUSCULAR HEMOGLOBIN CONC (BEAKER) (test 32.8 GM/DL 32.3-36.5 texr=032) RED CELL DISTRIBUTION WIDTH (BEAKER) (test 18.8 % 11.6-14.4 ufhs=768) PLATELET COUNT (BEAKER) (test pmpd=605) 38 K/CU MM 150-450 MEAN PLATELET VOLUME (BEAKER) (test glqa=523) 10.2 fL 9.4-12.4 NUCLEATED RED BLOOD CELLS (BEAKER) (test 0 /100 WBC 0-0 suus=446) NEUTROPHILS RELATIVE PERCENT (BEAKER) (test 83 % ztzx=856) LYMPHOCYTES RELATIVE PERCENT (BEAKER) (test 4 % bzxc=840) MONOCYTES RELATIVE PERCENT (BEAKER) (test 13 % umfg=844) EOSINOPHILS RELATIVE PERCENT (BEAKER) (test 0 % npdp=627) BASOPHILS RELATIVE PERCENT (BEAKER) (test 0 % tpfa=576) NEUTROPHILS ABSOLUTE COUNT (BEAKER) (test 5.58 K/ L 1.78-5.38 qpmp=730) LYMPHOCYTES ABSOLUTE COUNT (BEAKER) (test 0.24 K/ L 1.32-3.57 thwy=853) MONOCYTES ABSOLUTE COUNT (BEAKER) (test ovmb=123) 0.85 K/ L 0.30-0.82 EOSINOPHILS ABSOLUTE COUNT (BEAKER) (test 0.00 K/ L 0.04-0.54 vvhd=861) BASOPHILS ABSOLUTE COUNT (BEAKER) (test wkjp=868) 0.01 K/ L 0.01-0.08 IMMATURE GRANULOCYTES-RELATIVE PERCENT (BEAKER) 1 % 0-1 (test wfoo=0588) [id number] 08:04:00 Test Item Value Reference Range Comments PREALBUMIN (BEAKER) (test cnlp=750) 5 mg/dL 14-45 [id number] 07:59:00 Test Item Value Reference Range Comments PHOSPHORUS (BEAKER) (test xsfi=300) 3.3 mg/dL 2.3-4.7 [id number] 07:59:00 Test Item Value Reference Range Comments MAGNESIUM (BEAKER) (test zhld=907) 2.5 mg/dL 1.6-2.6 COMPREHENSIVE METABOLIC [id number] 07:59:00 Test Item Value Reference Range Comments TOTAL PROTEIN (BEAKER) 5.3 gm/dL 6.0-8.3 (test xumc=950) ALBUMIN (BEAKER) (test 3.3 g/dL 3.5-5.0 hikn=3288) ALKALINE PHOSPHATASE 101 U/L 40-150 (BEAKER) (test ntho=688) BILIRUBIN TOTAL (BEAKER) 1.9 mg/dL 0.2-1.2 (test hvgs=257) SODIUM (BEAKER) (test 127 meq/L 136-145 mesw=742) POTASSIUM (BEAKER) (test 4.6 meq/L 3.5-5.1 hwvt=015) CHLORIDE (BEAKER) (test 101 meq/L 98-107 wkyz=404) CO2 (BEAKER) (test 20 meq/L 22-29 joue=485) BLOOD UREA NITROGEN 52 mg/dL 7-21 (BEAKER) (test hylw=863) CREATININE (BEAKER) (test 1.82 mg/dL 0.57-1.25 fcfk=717) GLUCOSE RANDOM (BEAKER) 115 mg/dL 70-105 (test jtvx=909) CALCIUM (BEAKER) (test 10.2 mg/dL 8.4-10.2 srza=640) AST (SGOT) (BEAKER) (test 16 U/L 5-34 rpxi=101) ALT (SGPT) (BEAKER) (test 16 U/L 6-55 bbdr=386) EGFR (BEAKER) (test 39 mL/min/1.73 sq m ESTIMATED GFR IS NOT cmeq=9621) ACCURATE CREATININE CLEARANCE IN PREDICTING GLOMERULAR FILTRATION RATE. ESTIMATED GFR IS NOT APPLICABLE FOR DIALYSIS PATIENTS. PROTHROMBIN TIME/[id number] 07:47:00 Test Item Value Reference Range Comments PROTIME (BEAKER) (test jmvp=808) 23.9 seconds 11.7-14.7 INR (BEAKER) (test iocy=996) 2.1 <=5.9 RECOMMENDED COUMADIN/WARFARIN INR THERAPY RANGESSTANDARD DOSE: 2.0 - 3.0 Includes: PROPHYLAXIS forvenous thrombosis, systemic embolization; TREATMENT for venous thrombosis and/or pulmonary embolus.HIGH RISK: Target INR is 2.5-3.5 for patients with mechanical heart valves.CALCIUM, [id number] 06:39:00 Test Item Value Reference Range Comments CALCIUM IONIZED (BEAKER) (test buaj=619) 1.31 mmol/L 1.12-1.27 PH, BLOOD (BEAKER) (test rlzz=9622) 7.39 OSMOLALITY, [id number] 21:37:00 Test Item Value Reference Range Comments OSMOLALITY URINE (BEAKER) (test bgvw=980) 545 mOsm/kg 40-1,400 SODIUM, RANDOM [id number] 21:29:00 Test Item Value Reference Range Comments SODIUM URINE (BEAKER) (test yylh=801) < meq/L Reference Range: No NormalsCREATININE, RANDOM [id number] 21:28:00 Test Item Value Reference Range Comments CREATININE URINE (BEAKER) (test scrl=532) 104.9 mg/dL Reference Range: No NormalsPROTEIN, RANDOM [id number] 21:28:00 Test Item Value Reference Range Comments PROTEIN, URINE (BEAKER) (test abqt=8770) 9 mg/dL 0-14 URINALYSIS W/ REFLEX URINE [id number] 21:22:00 Test Item Value Reference Range Comments COLOR (BEAKER) (test donp=660) Yellow CLARITY (BEAKER) (test hmti=847) Clear SPECIFIC GRAVITY UA (BEAKER) (test cxoy=405) 1.016 1.001-1.035 PH UA (BEAKER) (test dewv=967) 5.5 5.0-8.0 PROTEIN UA (BEAKER) (test kfkk=420) Negative Negative GLUCOSE UA (BEAKER) (test gksk=659) Negative Negative KETONES UA (BEAKER) (test knjt=186) Negative Negative BILIRUBIN UA (BEAKER) (test mctp=286) Negative Negative BLOOD UA (BEAKER) (test etfq=514) Negative Negative NITRITE UA (BEAKER) (test tksy=584) Negative Negative LEUKOCYTE ESTERASE UA (BEAKER) (test lfxq=026) Negative Negative UROBILINOGEN UA (BEAKER) (test yuqn=774) 0.2 mg/dL 0.2-1.0 RBC UA (BEAKER) (test tgst=649) 1 /HPF WBC UA (BEAKER) (test nfpw=934) 2 /HPF BACTERIA (BEAKER) (test zscz=212) Rare SQUAMOUS EPITHELIAL (BEAKER) (test fujj=213) < /HPF HYALINE CASTS (BEAKER) (test acja=921) 10 /LPF CRYSTALS, URINE (BEAKER) (test mxbz=5509) Rare SOURCE(BEAKER) (test cmkh=9995) U/S, RENAL, [id number] 20:01:00Reason for exam:->AKIFINAL REPORT TECHNIQUE: Grayscale ultrasound of the kidneys and bladder. INDICATION: POLLY. COMPARISON: Ultrasound from 05/07/2018. FINDINGS: RIGHT KIDNEY: The right kidney measures 9.7 x 6.4 x 5 cm with a cortical thickness of 1.3 cm. Mildly increased echogenicity. No solid mass lesions. No hydronephrosis. Renal artery and vein are patent. LEFT KIDNEY: The left kidney measures 9.7 x 4.8 x 4.4 cm with a cortical thickness of 1.1 cm each. Mild increased echogenicity. No solid mass lesions. No hydronephrosis. Renal artery and vein are patent. BLADDER: Unremarkable. Moderate volume ascites. IMPRESSION : 1.The mildly increased renal cortical echogenicity may be due to chronic medical renal disease. No hydronephrosis. 2.Partially visualized moderate volume ascites. Signed: Nataly Dupree Verified Date/Time: 12/18/2018 20: 01:21 Reading Location: [address] Consult Reading Room [id number] 18:04:00 Test Item Value Reference Range Comments AMMONIA (BEAKER) (test gtgi=048) 53 mol/L 18-72 U/S, [id number] 15:47:00Please send ascitic fluid for Albumin, protein, cell count with differential, gram stain, culture, cytology.Reason for exam:->Massive ascities.FINAL REPORT HISTORY : Ascites Technique/findings:Informed written consent was obtained. Discussion of risks, benefits, and alternatives were made with the patient. The patient expressed understanding and agreed to proceed. A universal timeout was performed prior to starting the procedure. Initial ultrasound images demonstrate large volume of ascites. A pocket of fluid was identified in the right lower quadrant of the abdomen. This area was marked. The area was prepped and draped in the usual sterile fashion. 1% lidocaine was applied to the skin and deep soft tissues. A 5 Polish one-step catheter was inserted and removed from the peritoneal space and approximately 6.5 liters of cloudy yellow fluid was aspirated from the abdomen. Specimens were collected for the lab. There were no immediate complications. Impression: Successful ultrasound guided paracentesis with aspiration of 6.5 liters of fluid. Signed: Reece Haque MDReport Verified Date/Time: 12/18/2018 15:47:45 Reading Location: [facility] [id number] Ultrasound Reading Room BODY FLUID CELL COUNT WITH [id number] 15:43 :00 Test Item Value Reference Range Comments APPEARANCE FLUID (BEAKER) (test pqdp=720) Slightly Cloudy Clear COLOR FLUID (BEAKER) (test agcr=825) Yellow Colorless, Straw RBC FLUID (BEAKER) (test yjhg=991) 280 /cu mm <=1 ADJUSTED WBC FLUID (BEAKER) (test 2020 /cu mm <=5 fmaj=9032) LINING CELLS (BEAKER) (test kpcj=4553) 0 /cu mm <=1 NEUTROPHILS FLUID (BEAKER) (test hyhs=9247) 91 % LYMPHS FLUID (BEAKER) (test zuij=959) 3 % MONO/MACROPHAGE FLUID (BEAKER) (test 6 % usus=286) EOSINOPHILS FLUID (BEAKER) (test ukhj=058) 0 % BASO FLUID (BEAKER) (test zqbc=713) 0 % CONTAINER BODY FLUID (BEAKER) (test EDTA Tube djdf=5745) PROTEIN, BODY [id number] 15:23:00 Test Item Value Reference Range Comments PROTEIN FLUID (BEAKER) (test fztv=308) 0.8 g/dL Absence of reference range indicates that normals have not been defined.Assay performance has not been validated for this type of specimen.ALBUMIN, BODY [id number] 15:23:00 Test Item Value Reference Range Comments ALBUMIN FLUID (BEAKER) (test qrzu=528) 0.5 gm/dL Reference Range: No Normals Assay performance has not been validated for this type of specimen.RAD, ABDOMEN/KUB, 1 VIEW [id number] 15:05:00Reason for exam:- >Abdominal distension with periumbilical herniaFINAL REPORT Technique: Supine radiographs of the abdomen dated 12/18/2018 HISTORY: Abdominal distention and periumbilical hernia. COMPARISON: Abdominal radiographs dated 11/12/2018 IMPRESSION:No air-filled, dilated loops of bowel to suggest obstruction. No free intraperitoneal air. No abnormal soft tissue mass or calcification. Bones are markedly osteopenic. Kyphoplasty materialis seen at multiple vertebral bodies. There are compression deformities of the lumbar vertebral bodies. Signed: Gabriela Navarro MDReport Verified Date/Time: 12/18 15:05:12 Reading Location: [facility] Radiology Reading Room [id number] 07: 04:00 Test Item Value Reference Range Comments PARTIAL THROMBOPLASTIN TIME (BEAKER) (test 46.6 seconds 22.5-36.0 lbig=656) [id number] 05:56:00 Test Item Value Reference Range Comments MAGNESIUM (BEAKER) (test adbp=288) 2.3 mg/dL 1.6-2.6 BASIC METABOLIC [id number] 05:56:00 Test Item Value Reference Range Comments SODIUM (BEAKER) (test 131 meq/L 136-145 ruxp=234) POTASSIUM (BEAKER) (test 4.9 meq/L 3.5-5.1 kwsm=605) CHLORIDE (BEAKER) (test 104 meq/L 98-107 zgrw=626) CO2 (BEAKER) (test 20 meq/L 22-29 tmzd=660) BLOOD UREA NITROGEN 50 mg/dL 7-21 (BEAKER) (test qlev=283) CREATININE (BEAKER) (test 1.81 mg/dL 0.57-1.25 qfhb=903) GLUCOSE RANDOM (BEAKER) 127 mg/dL 70-105 (test qrxb=982) CALCIUM (BEAKER) (test 9.8 mg/dL 8.4-10.2 gmhy=471) EGFR (BEAKER) (test 39 mL/min/1.73 sq m ESTIMATED GFR IS NOT ajun=6742) ACCURATE CREATININE CLEARANCE IN PREDICTING GLOMERULAR FILTRATION RATE. ESTIMATED GFR IS NOT APPLICABLE FOR DIALYSIS PATIENTS. Specimen slightly ictericHEPATIC FUNCTION [id number] 05:56:00 Test Item Value Reference Range Comments TOTAL PROTEIN (BEAKER) (test qhra=293) 5.2 gm/dL 6.0-8.3 ALBUMIN (BEAKER) (test dgce=3350) 3.1 g/dL 3.5-5.0 BILIRUBIN TOTAL (BEAKER) (test tmvl=645) 2.3 mg/dL 0.2-1.2 BILIRUBIN DIRECT (BEAKER) (test thdd=166) 1.3 mg/dL 0.1-0.5 ALKALINE PHOSPHATASE (BEAKER) (test bmxh=076) 111 U/L 40-150 AST (SGOT) (BEAKER) (test pkpz=276) 22 U/L 5-34 ALT (SGPT) (BEAKER) (test swli=293) 22 U/L 6-55 Specimen slightly ictericPROTHROMBIN [id number] 05:29:00 Test Item Value Reference Range Comments PROTIME (BEAKER) (test zwfq=294) 25.8 seconds 11.7-14.7 INR (BEAKER) (test wryu=975) 2.3 <=5.9 RECOMMENDED COUMADIN/WARFARIN INR THERAPY RANGESSTANDARD DOSE: 2.0 - 3.0 Includes: PROPHYLAXIS forvenous thrombosis, systemic embolization; TREATMENT for venous thrombosis and/or pulmonary embolus.HIGH RISK: Target INR is 2.5-3.5 for patients with mechanical heart valves.CBC (HEMOGRAM ONLY)2018-12-18 05:16:00 Test Item Value Reference Range Comments WHITE BLOOD CELL COUNT (BEAKER) (test qujc=346) 8.6 K/ L 3.5-10.5 RED BLOOD CELL COUNT (BEAKER) (test vxdw=993) 2.74 M/ L 4.63-6.08 HEMOGLOBIN (BEAKER) (test rzrh=942) 9.4 GM/DL 13.7-17.5 HEMATOCRIT (BEAKER) (test cjtq=606) 28.0 % 40.1-51.0 MEAN CORPUSCULAR VOLUME (BEAKER) (test ecil=553) 102.2 fL 79.0-92.2 MEAN CORPUSCULAR HEMOGLOBIN (BEAKER) (test 34.3 pg 25.7-32.2 cnyw=216) MEAN CORPUSCULAR HEMOGLOBIN CONC (BEAKER) (test 33.6 GM/DL 32.3-36.5 zfxk=384) RED CELL DISTRIBUTION WIDTH (BEAKER) (test 19.8 % 11.6-14.4 qbur=128) PLATELET COUNT (BEAKER) (test ggym=930) 45 K/CU MM 150-450 MEAN PLATELET VOLUME (BEAKER) (test hclx=597) 9.7 fL 9.4-12.4 NUCLEATED RED BLOOD CELLS (BEAKER) (test 0 /100 WBC 0-0 rwac=102) BLOOD [id number] 19:00:00 Test Item Value Reference Range Comments CULTURE (BEAKER) (test epqj=9965) No growth in 5 days BLOOD [id number] 19:00:00 Test Item Value Reference Range Comments CULTURE (BEAKER) (test onzs=7519) No growth in 5 days MISCELLANEOUS LAB [id number] 09:42:00 Test Item Value Reference Range Comments SCAN RESULT (test fpva=[id number]) [id number] 07:24:00 Test Item Value Reference Range Comments MAGNESIUM (BEAKER) (test jgob=999) 2.2 mg/dL 1.6-2.6 BASIC METABOLIC [id number] 07:24:00 Test Item Value Reference Range Comments SODIUM (BEAKER) (test 130 meq/L 136-145 akeb=237) POTASSIUM (BEAKER) (test 4.0 meq/L 3.5-5.1 jqwa=014) CHLORIDE (BEAKER) (test 102 meq/L 98-107 tfet=965) CO2 (BEAKER) (test 22 meq/L 22-29 plln=347) BLOOD UREA NITROGEN 45 mg/dL 7-21 (BEAKER) (test wlna=420) CREATININE (BEAKER) (test 1.42 mg/dL 0.57-1.25 snna=675) GLUCOSE RANDOM (BEAKER) 138 mg/dL 70-105 (test emsw=911) CALCIUM (BEAKER) (test 10.0 mg/dL 8.4-10.2 nash=862) EGFR (BEAKER) (test 52 mL/min/1.73 sq m ESTIMATED GFR IS NOT wnug=6390) ACCURATE CREATININE CLEARANCE IN PREDICTING GLOMERULAR FILTRATION RATE. ESTIMATED GFR IS NOT APPLICABLE FOR DIALYSIS PATIENTS. HEPATIC FUNCTION [id number] 07:24:00 Test Item Value Reference Range Comments TOTAL PROTEIN (BEAKER) (test zemi=768) 5.3 gm/dL 6.0-8.3 ALBUMIN (BEAKER) (test hegh=8529) 3.3 g/dL 3.5-5.0 BILIRUBIN TOTAL (BEAKER) (test enuk=622) 1.9 mg/dL 0.2-1.2 BILIRUBIN DIRECT (BEAKER) (test xtiv=274) 1.2 mg/dL 0.1-0.5 ALKALINE PHOSPHATASE (BEAKER) (test vpss=314) 130 U/L 40-150 AST (SGOT) (BEAKER) (test gfud=131) 18 U/L 5-34 ALT (SGPT) (BEAKER) (test mqan=291) 16 U/L 6-55 CBC W/PLT COUNT & AUTO [id number] 07:13:00 Test Item Value Reference Range Comments WHITE BLOOD CELL COUNT (BEAKER) (test jqjv=214) 5.9 K/ L 3.5-10.5 RED BLOOD CELL COUNT (BEAKER) (test azxj=709) 2.59 M/ L 4.63-6.08 HEMOGLOBIN (BEAKER) (test johq=487) 8.6 GM/DL 13.7-17.5 HEMATOCRIT (BEAKER) (test vniv=144) 25.2 % 40.1-51.0 MEAN CORPUSCULAR VOLUME (BEAKER) (test trsy=420) 97.3 fL 79.0-92.2 MEAN CORPUSCULAR HEMOGLOBIN (BEAKER) (test 33.2 pg 25.7-32.2 uaxd=793) MEAN CORPUSCULAR HEMOGLOBIN CONC (BEAKER) (test 34.1 GM/DL 32.3-36.5 cpea=841) RED CELL DISTRIBUTION WIDTH (BEAKER) (test 18.7 % 11.6-14.4 gynp=348) PLATELET COUNT (BEAKER) (test kjkm=333) 44 K/CU MM 150-450 MEAN PLATELET VOLUME (BEAKER) (test urig=442) 9.6 fL 9.4-12.4 NUCLEATED RED BLOOD CELLS (BEAKER) (test 0 /100 WBC 0-0 ttcw=738) NEUTROPHILS RELATIVE PERCENT (BEAKER) (test 82 % ntck=226) LYMPHOCYTES RELATIVE PERCENT (BEAKER) (test 6 % rkjz=684) MONOCYTES RELATIVE PERCENT (BEAKER) (test 12 % xhow=595) EOSINOPHILS RELATIVE PERCENT (BEAKER) (test 0 % aqyc=393) BASOPHILS RELATIVE PERCENT (BEAKER) (test 0 % kqnk=445) NEUTROPHILS ABSOLUTE COUNT (BEAKER) (test 4.79 K/ L 1.78-5.38 pqai=257) LYMPHOCYTES ABSOLUTE COUNT (BEAKER) (test 0.36 K/ L 1.32-3.57 kkkb=980) MONOCYTES ABSOLUTE COUNT (BEAKER) (test kvfj=496) 0.70 K/ L 0.30-0.82 EOSINOPHILS ABSOLUTE COUNT (BEAKER) (test 0.00 K/ L 0.04-0.54 thdg=968) BASOPHILS ABSOLUTE COUNT (BEAKER) (test fpzn=618) 0.00 K/ L 0.01-0.08 IMMATURE GRANULOCYTES-RELATIVE PERCENT (BEAKER) 1 % 0-1 (test ygah=0994) PROTHROMBIN [id number] 07:10:00 Test Item Value Reference Range Comments PROTIME (BEAKER) (test tewn=926) 22.0 seconds 11.7-14.7 INR (BEAKER) (test jyyo=004) 1.9 <=5.9 RECOMMENDED COUMADIN/WARFARIN INR THERAPY RANGESSTANDARD DOSE: 2.0 - 3.0 Includes: PROPHYLAXIS forvenous thrombosis, systemic embolization; TREATMENT for venous thrombosis and/or pulmonary embolus.HIGH RISK: Target INR is 2.5-3.5 for patients with mechanical heart valves.POCT-GLUCOSE [id number] 12:46:00 Test Item Value Reference Range Comments POC-GLUCOSE METER (BEAKER) 192 mg/dL 70-[address] [facility] [address] [facility] (test nlqo=8111) [facility] [address] BODY FLUID CELL COUNT WITH [id number] 11:54:00 Test Item Value Reference Range Comments APPEARANCE FLUID (BEAKER) (test qfdx=812) Hazy Clear COLOR FLUID (BEAKER) (test opua=478) Yellow Colorless, Straw RBC FLUID (BEAKER) (test opgh=174) 11 /cu mm <=1 ADJUSTED WBC FLUID (BEAKER) (test oxxp=4393) 4 /cu mm <=5 LINING CELLS (BEAKER) (test dngx=4564) 0 /cu mm <=1 NEUTROPHILS FLUID (BEAKER) (test echo=2833) 0 % LYMPHS FLUID (BEAKER) (test kbxk=404) 65 % MONO/MACROPHAGE FLUID (BEAKER) (test fcxi=751) 35 % EOSINOPHILS FLUID (BEAKER) (test xusf=457) 0 % BASO FLUID (BEAKER) (test lbxi=038) 0 % CONTAINER BODY FLUID (BEAKER) (test cjtf=0258) EDTA Tube ALPHA FETOPROTEIN (AFP), TUMOR [id number] 06:46:00 Test Item Value Reference Range Comments ALPHA-FETOPROTEIN (BEAKER) (test nrcx=5717) < ng/mL <10.0 [id number] 06:29:00 Test Item Value Reference Range Comments MAGNESIUM (BEAKER) (test pimy=127) 2.4 mg/dL 1.6-2.6 BASIC METABOLIC [id number] 06:29:00 Test Item Value Reference Range Comments SODIUM (BEAKER) (test 134 meq/L 136-145 svsy=216) POTASSIUM (BEAKER) (test 4.2 meq/L 3.5-5.1 xbsz=343) CHLORIDE (BEAKER) (test 105 meq/L 98-107 zwwy=279) CO2 (BEAKER) (test 23 meq/L 22-29 kwtc=960) BLOOD UREA NITROGEN 44 mg/dL 7-21 (BEAKER) (test lzud=526) CREATININE (BEAKER) (test 1.49 mg/dL 0.57-1.25 fbxf=944) GLUCOSE RANDOM (BEAKER) 167 mg/dL 70-105 (test cpwg=414) CALCIUM (BEAKER) (test 10.0 mg/dL 8.4-10.2 etmg=569) EGFR (BEAKER) (test 49 mL/min/1.73 sq m ESTIMATED GFR IS NOT navg=7491) ACCURATE CREATININE CLEARANCE IN PREDICTING GLOMERULAR FILTRATION RATE. ESTIMATED GFR IS NOT APPLICABLE FOR DIALYSIS PATIENTS. Specimen slightly ictericHEPATIC FUNCTION [id number] 06:29:00 Test Item Value Reference Range Comments TOTAL PROTEIN (BEAKER) (test qrmb=540) 5.6 gm/dL 6.0-8.3 ALBUMIN (BEAKER) (test sflm=3323) 3.6 g/dL 3.5-5.0 BILIRUBIN TOTAL (BEAKER) (test gbqp=642) 2.4 mg/dL 0.2-1.2 BILIRUBIN DIRECT (BEAKER) (test sqtt=315) 1.3 mg/dL 0.1-0.5 ALKALINE PHOSPHATASE (BEAKER) (test diwh=380) 119 U/L 40-150 AST (SGOT) (BEAKER) (test uekl=833) 16 U/L 5-34 ALT (SGPT) (BEAKER) (test efzs=570) 15 U/L 6-55 Specimen slightly ictericPROTHROMBIN [id number] 06:23:00 Test Item Value Reference Range Comments PROTIME (BEAKER) (test amyt=423) 21.8 seconds 11.7-14.7 INR (BEAKER) (test clgr=174) 1.9 <=5.9 RECOMMENDED COUMADIN/WARFARIN INR THERAPY RANGESSTANDARD DOSE: 2.0 - 3.0 Includes: PROPHYLAXIS forvenous thrombosis, systemic embolization; TREATMENT for venous thrombosis and/or pulmonary embolus.HIGH RISK: Target INR is 2.5-3.5 for patients with mechanical heart valves.CBC W/PLT COUNT & AUTO [id number] 06:11:00 Test Item Value Reference Range Comments WHITE BLOOD CELL COUNT (BEAKER) (test qqef=047) 4.0 K/ L 3.5-10.5 RED BLOOD CELL COUNT (BEAKER) (test oqwp=003) 2.56 M/ L 4.63-6.08 HEMOGLOBIN (BEAKER) (test xoir=261) 8.4 GM/DL 13.7-17.5 HEMATOCRIT (BEAKER) (test qvvb=064) 25.2 % 40.1-51.0 MEAN CORPUSCULAR VOLUME (BEAKER) (test xgdp=972) 98.4 fL 79.0-92.2 MEAN CORPUSCULAR HEMOGLOBIN (BEAKER) (test 32.8 pg 25.7-32.2 lyfh=872) MEAN CORPUSCULAR HEMOGLOBIN CONC (BEAKER) (test 33.3 GM/DL 32.3-36.5 crbf=997) RED CELL DISTRIBUTION WIDTH (BEAKER) (test 19.4 % 11.6-14.4 fiqz=901) PLATELET COUNT (BEAKER) (test xczf=970) 45 K/CU MM 150-450 MEAN PLATELET VOLUME (BEAKER) (test svyg=397) 10.0 fL 9.4-12.4 NUCLEATED RED BLOOD CELLS (BEAKER) (test 0 /100 WBC 0-0 dmhz=123) NEUTROPHILS RELATIVE PERCENT (BEAKER) (test 80 % tift=385) LYMPHOCYTES RELATIVE PERCENT (BEAKER) (test 7 % ymxh=192) MONOCYTES RELATIVE PERCENT (BEAKER) (test 13 % zqwd=243) EOSINOPHILS RELATIVE PERCENT (BEAKER) (test 1 % aivc=665) BASOPHILS RELATIVE PERCENT (BEAKER) (test 0 % woiy=724) NEUTROPHILS ABSOLUTE COUNT (BEAKER) (test 3.20 K/ L 1.78-5.38 wnpc=694) LYMPHOCYTES ABSOLUTE COUNT (BEAKER) (test 0.28 K/ L 1.32-3.57 zocg=175) MONOCYTES ABSOLUTE COUNT (BEAKER) (test kedv=934) 0.50 K/ L 0.30-0.82 EOSINOPHILS ABSOLUTE COUNT (BEAKER) (test 0.02 K/ L 0.04-0.54 kumi=402) BASOPHILS ABSOLUTE COUNT (BEAKER) (test pqzj=732) 0.00 K/ L 0.01-0.08 IMMATURE GRANULOCYTES-RELATIVE PERCENT (BEAKER) 0 % 0-1 (test tmis=5431) U/S, [id number] 18:07:00Reason for exam:->Ascites with prior SBP now with encephalopathyFINAL REPORT PROCEDURE: Ultrasound -guided paracentesis. INDICATION: Ascites with prior SBP now with encephalopathy. DESCRIPTION: After obtaining informed written consent, ultrasound scan of the abdomen identified ascites in the left lower quadrant. The overlying skin was preppedand draped in the usual, sterile fashion and local 1% lidocaine anesthesia was administered. A 5 Polish catheter was advanced into the peritoneal cavity and 9000 mL of cloudy yellow fluid was removed. The catheter was removed without immediate complication. Samples were sent for analysis. IMPRESSION:Uncomplicated ultrasound-guided paracentesis with 9000 mL of fluid removed. Signed: Nataly Dupree MDReport Verified Date/Time: 12/10 18:07:28 Reading Location: [facility] [id number] Ultrasound Reading Room HEPATIC FUNCTION [id number] 10:34:00 Test Item Value Reference Range Comments TOTAL PROTEIN (BEAKER) (test 5.5 gm/dL 6.0-8.3 Specimen slightly hemolyzed avba=648) ALBUMIN (BEAKER) (test 3.2 g/dL 3.5-5.0 Specimen slightly hemolyzed limq=1370) BILIRUBIN TOTAL (BEAKER) (test 2.7 mg/dL 0.2-1.2 Specimen slightly hemolyzed momt=695) BILIRUBIN DIRECT (BEAKER) (test 1.1 mg/dL 0.1-0.5 Specimen slightly hemolyzed abgc=601) ALKALINE PHOSPHATASE (BEAKER) 128 U/L 40-150 (test gsgz=465) AST (SGOT) (BEAKER) (test 28 U/L 5-34 Specimen slightly hemolyzed ljwp=371) ALT (SGPT) (BEAKER) (test 19 U/L 6-55 Specimen slightly hemolyzed ebfq=844) Specimen slightly [id number] 07:02:00 Test Item Value Reference Range Comments MAGNESIUM (BEAKER) (test 2.6 mg/dL 1.6-2.6 Specimen slightly hemolyzed dhfo=559) BASIC METABOLIC [id number] 07:02:00 Test Item Value Reference Range Comments SODIUM (BEAKER) (test 134 meq/L 136-145 uhpi=914) POTASSIUM (BEAKER) (test 4.8 meq/L 3.5-5.1 Specimen slightly bgor=589) hemolyzed CHLORIDE (BEAKER) (test 105 meq/L 98-107 urjj=216) CO2 (BEAKER) (test 24 meq/L 22-29 gcou=119) BLOOD UREA NITROGEN 45 mg/dL 7-21 (BEAKER) (test vndl=185) CREATININE (BEAKER) (test 1.39 mg/dL 0.57-1.25 Specimen slightly ogtv=926) hemolyzed GLUCOSE RANDOM (BEAKER) 134 mg/dL 70-105 (test takn=498) CALCIUM (BEAKER) (test 9.7 mg/dL 8.4-10.2 ddgv=891) EGFR (BEAKER) (test 53 mL/min/1.73 sq m ESTIMATED GFR IS NOT qpqm=3994) ACCURATE CREATININE CLEARANCE IN PREDICTING GLOMERULAR FILTRATION RATE. ESTIMATED GFR IS NOT APPLICABLE FOR DIALYSIS PATIENTS. Specimen slightly ictericPT/[id number] 06:53:00 Test Item Value Reference Range Comments PROTIME (BEAKER) (test gnif=767) 19.7 seconds 11.7-14.7 INR (BEAKER) (test lule=750) 1.7 <=5.9 PARTIAL THROMBOPLASTIN TIME (BEAKER) (test 39.1 seconds 22.5-36.0 rwoe=320) RECOMMENDED COUMADIN/WARFARIN INR THERAPY RANGESSTANDARD DOSE: 2.0 - 3.0 Includes: PROPHYLAXIS forvenous thrombosis, systemic embolization; TREATMENT for venous thrombosis and/or pulmonary embolus.HIGH RISK: Target INR is 2.5-3.5 for patients with mechanical heart valves.CBC W/PLT COUNT & AUTO [id number] 06:44:00 Test Item Value Reference Range Comments WHITE BLOOD CELL COUNT (BEAKER) (test pqbr=368) 4.2 K/ L 3.5-10.5 RED BLOOD CELL COUNT (BEAKER) (test opcq=984) 2.73 M/ L 4.63-6.08 HEMOGLOBIN (BEAKER) (test wynm=307) 9.0 GM/DL 13.7-17.5 HEMATOCRIT (BEAKER) (test orku=903) 27.0 % 40.1-51.0 MEAN CORPUSCULAR VOLUME (BEAKER) (test igss=059) 98.9 fL 79.0-92.2 MEAN CORPUSCULAR HEMOGLOBIN (BEAKER) (test 33.0 pg 25.7-32.2 jgiq=722) MEAN CORPUSCULAR HEMOGLOBIN CONC (BEAKER) (test 33.3 GM/DL 32.3-36.5 ihty=074) RED CELL DISTRIBUTION WIDTH (BEAKER) (test 19.8 % 11.6-14.4 cqms=206) PLATELET COUNT (BEAKER) (test cbxv=865) 48 K/CU MM 150-450 MEAN PLATELET VOLUME (BEAKER) (test xblu=217) 8.9 fL 9.4-12.4 NUCLEATED RED BLOOD CELLS (BEAKER) (test 0 /100 WBC 0-0 smux=373) NEUTROPHILS RELATIVE PERCENT (BEAKER) (test 75 % aayn=234) LYMPHOCYTES RELATIVE PERCENT (BEAKER) (test 8 % bagv=783) MONOCYTES RELATIVE PERCENT (BEAKER) (test 15 % lecu=887) EOSINOPHILS RELATIVE PERCENT (BEAKER) (test 1 % qzpc=872) BASOPHILS RELATIVE PERCENT (BEAKER) (test 0 % jrnk=980) NEUTROPHILS ABSOLUTE COUNT (BEAKER) (test 3.15 K/ L 1.78-5.38 ytao=604) LYMPHOCYTES ABSOLUTE COUNT (BEAKER) (test 0.35 K/ L 1.32-3.57 espg=147) MONOCYTES ABSOLUTE COUNT (BEAKER) (test fpdn=585) 0.65 K/ L 0.30-0.82 EOSINOPHILS ABSOLUTE COUNT (BEAKER) (test 0.04 K/ L 0.04-0.54 clgh=351) BASOPHILS ABSOLUTE COUNT (BEAKER) (test ndbf=574) 0.00 K/ L 0.01-0.08 IMMATURE GRANULOCYTES-RELATIVE PERCENT (BEAKER) 1 % 0-1 (test otmm=0354) COMPREHENSIVE METABOLIC [id number] 13:28:00 Test Item Value Reference Range Comments TOTAL PROTEIN (BEAKER) 5.9 gm/dL 6.0-8.3 (test ytdg=970) ALBUMIN (BEAKER) (test 3.5 g/dL 3.5-5.0 siaw=3068) ALKALINE PHOSPHATASE 146 U/L 40-150 (BEAKER) (test emuk=874) BILIRUBIN TOTAL (BEAKER) 3.6 mg/dL 0.2-1.2 (test kstp=628) SODIUM (BEAKER) (test 132 meq/L 136-145 gktp=632) POTASSIUM (BEAKER) (test 4.5 meq/L 3.5-5.1 cags=685) CHLORIDE (BEAKER) (test 102 meq/L 98-107 ggwx=590) CO2 (BEAKER) (test 24 meq/L 22-29 nrgb=749) BLOOD UREA NITROGEN 47 mg/dL 7-21 (BEAKER) (test iwpa=782) CREATININE (BEAKER) (test 1.45 mg/dL 0.57-1.25 absd=878) GLUCOSE RANDOM (BEAKER) 113 mg/dL 70-105 (test rmzw=761) CALCIUM (BEAKER) (test 10.1 mg/dL 8.4-10.2 szao=479) AST (SGOT) (BEAKER) (test 23 U/L 5-34 bils=846) ALT (SGPT) (BEAKER) (test 18 U/L 6-55 rocb=482) EGFR (BEAKER) (test 51 mL/min/1.73 sq m ESTIMATED GFR IS NOT jyru=8233) ACCURATE CREATININE CLEARANCE IN PREDICTING GLOMERULAR FILTRATION RATE. ESTIMATED GFR IS NOT APPLICABLE FOR DIALYSIS PATIENTS. Specimen moderately ictericCBC W/PLT COUNT & AUTO [id number] 13: 11:00 Test Item Value Reference Range Comments WHITE BLOOD CELL COUNT (BEAKER) (test gnja=264) 4.3 K/ L 3.5-10.5 RED BLOOD CELL COUNT (BEAKER) (test zkli=604) 2.98 M/ L 4.63-6.08 HEMOGLOBIN (BEAKER) (test txsg=842) 9.7 GM/DL 13.7-17.5 HEMATOCRIT (BEAKER) (test bfmw=510) 29.0 % 40.1-51.0 MEAN CORPUSCULAR VOLUME (BEAKER) (test gesa=858) 97.3 fL 79.0-92.2 MEAN CORPUSCULAR HEMOGLOBIN (BEAKER) (test 32.6 pg 25.7-32.2 pper=548) MEAN CORPUSCULAR HEMOGLOBIN CONC (BEAKER) (test 33.4 GM/DL 32.3-36.5 jzao=845) RED CELL DISTRIBUTION WIDTH (BEAKER) (test 19.9 % 11.6-14.4 ytis=097) PLATELET COUNT (BEAKER) (test njtf=877) 49 K/CU MM 150-450 MEAN PLATELET VOLUME (BEAKER) (test edew=254) 9.6 fL 9.4-12.4 NUCLEATED RED BLOOD CELLS (BEAKER) (test 0 /100 WBC 0-0 oedh=859) NEUTROPHILS RELATIVE PERCENT (BEAKER) (test 74 % ksfk=750) LYMPHOCYTES RELATIVE PERCENT (BEAKER) (test 9 % dhze=559) MONOCYTES RELATIVE PERCENT (BEAKER) (test 13 % uhvu=930) EOSINOPHILS RELATIVE PERCENT (BEAKER) (test 3 % ouup=744) BASOPHILS RELATIVE PERCENT (BEAKER) (test 0 % kgch=268) NEUTROPHILS ABSOLUTE COUNT (BEAKER) (test 3.18 K/ L 1.78-5.38 pfsu=780) LYMPHOCYTES ABSOLUTE COUNT (BEAKER) (test 0.40 K/ L 1.32-3.57 oifb=188) MONOCYTES ABSOLUTE COUNT (BEAKER) (test ukze=522) 0.55 K/ L 0.30-0.82 EOSINOPHILS ABSOLUTE COUNT (BEAKER) (test 0.13 K/ L 0.04-0.54 enor=922) BASOPHILS ABSOLUTE COUNT (BEAKER) (test panw=622) 0.01 K/ L 0.01-0.08 IMMATURE GRANULOCYTES-RELATIVE PERCENT (BEAKER) 0 % 0-1 (test wmtt=4427) URINALYSIS W/ REFLEX URINE [id number] 12:06:00 Test Item Value Reference Range Comments COLOR (BEAKER) (test sqoj=319) Yellow CLARITY (BEAKER) (test zojg=964) Clear SPECIFIC GRAVITY UA (BEAKER) (test dohk=790) 1.018 1.001-1.035 PH UA (BEAKER) (test pfnq=884) 6.0 5.0-8.0 PROTEIN UA (BEAKER) (test ptpb=562) Negative Negative GLUCOSE UA (BEAKER) (test wvat=784) Negative Negative KETONES UA (BEAKER) (test vsyt=068) Negative Negative BILIRUBIN UA (BEAKER) (test lgug=453) Negative Negative BLOOD UA (BEAKER) (test uydd=567) Small Negative NITRITE UA (BEAKER) (test bdeo=170) Negative Negative LEUKOCYTE ESTERASE UA (BEAKER) (test cpso=961) Negative Negative UROBILINOGEN UA (BEAKER) (test snbw=679) 0.2 mg/dL 0.2-1.0 RBC UA (BEAKER) (test lyaw=813) 1 /HPF WBC UA (BEAKER) (test qrhr=881) 7 /HPF SOURCE(BEAKER) (test jyfl=9610) BODY FLUID CULTURE + GRAM [id number] 11:04:00 Test Item Value Reference Range Comments CULTURE (BEAKER) (test kifv=5533) No growth GRAM STAIN RESULT (BEAKER) (test <1+ WBCs nbgg=6485) GRAM STAIN RESULT (BEAKER) (test No organisms seen anqw=66633) POCT-GLUCOSE [id number] 11:52:00 Test Item Value Reference Range Comments POC-GLUCOSE METER (BEAKER) 224 mg/dL 70-[address] [facility] [address] [facility] (test hxlq=5969) [facility] [address] POCT-GLUCOSE [id number] 08:27:00 Test Item Value Reference Range Comments POC-GLUCOSE METER (BEAKER) 159 mg/dL 70-[address] [facility] [address] [facility] (test cocw=0880) [facility] [address] CBC W/PLT COUNT & AUTO [id number] 06:22:00 Test Item Value Reference Range Comments WHITE BLOOD CELL COUNT (BEAKER) (test zpqo=350) 5.7 K/ L 3.5-10.5 RED BLOOD CELL COUNT (BEAKER) (test mqum=553) 2.69 M/ L 4.63-6.08 HEMOGLOBIN (BEAKER) (test uxze=610) 8.7 GM/DL 13.7-17.5 HEMATOCRIT (BEAKER) (test lqyj=090) 25.4 % 40.1-51.0 MEAN CORPUSCULAR VOLUME (BEAKER) (test qtmy=941) 94.4 fL 79.0-92.2 MEAN CORPUSCULAR HEMOGLOBIN (BEAKER) (test 32.3 pg 25.7-32.2 hjvb=458) MEAN CORPUSCULAR HEMOGLOBIN CONC (BEAKER) (test 34.3 GM/DL 32.3-36.5 hhwp=118) RED CELL DISTRIBUTION WIDTH (BEAKER) (test 16.8 % 11.6-14.4 zdeb=325) PLATELET COUNT (BEAKER) (test cjik=110) 43 K/CU MM 150-450 MEAN PLATELET VOLUME (BEAKER) (test oepu=116) 10.6 fL 9.4-12.4 NUCLEATED RED BLOOD CELLS (BEAKER) (test 0 /100 WBC 0-0 lpnr=224) NEUTROPHILS RELATIVE PERCENT (BEAKER) (test 82 % csfc=174) LYMPHOCYTES RELATIVE PERCENT (BEAKER) (test 7 % pwdj=400) MONOCYTES RELATIVE PERCENT (BEAKER) (test 9 % lfbw=459) EOSINOPHILS RELATIVE PERCENT (BEAKER) (test 0 % uzcu=342) BASOPHILS RELATIVE PERCENT (BEAKER) (test 0 % grsd=021) NEUTROPHILS ABSOLUTE COUNT (BEAKER) (test 4.65 K/ L 1.78-5.38 adca=883) LYMPHOCYTES ABSOLUTE COUNT (BEAKER) (test 0.38 K/ L 1.32-3.57 wtcr=260) MONOCYTES ABSOLUTE COUNT (BEAKER) (test flou=106) 0.53 K/ L 0.30-0.82 EOSINOPHILS ABSOLUTE COUNT (BEAKER) (test 0.01 K/ L 0.04-0.54 kfso=768) BASOPHILS ABSOLUTE COUNT (BEAKER) (test fmau=235) 0.01 K/ L 0.01-0.08 IMMATURE GRANULOCYTES-RELATIVE PERCENT (BEAKER) 1 % 0-1 (test vpzf=9004) B-TYPE NATRIURETIC FACTOR (BNP)2018-11-20 06:16:00 Test Item Value Reference Range Comments B-TYPE NATRIURETIC PEPTIDE (BEAKER) (test 2158 pg/mL 0-100 qnsj=008) [id number] 06:15:00 Test Item Value Reference Range Comments PHOSPHORUS (BEAKER) (test tflk=919) 2.5 mg/dL 2.3-4.7 [id number] 06:15:00 Test Item Value Reference Range Comments MAGNESIUM (BEAKER) (test lblr=705) 1.8 mg/dL 1.6-2.6 COMPREHENSIVE METABOLIC [id number] 06:15:00 Test Item Value Reference Range Comments TOTAL PROTEIN (BEAKER) 5.4 gm/dL 6.0-8.3 (test feio=747) ALBUMIN (BEAKER) (test 4.1 g/dL 3.5-5.0 aaks=2532) ALKALINE PHOSPHATASE 63 U/L 40-150 (BEAKER) (test lqka=886) BILIRUBIN TOTAL (BEAKER) 2.6 mg/dL 0.2-1.2 (test frir=296) SODIUM (BEAKER) (test 136 meq/L 136-145 fzjx=382) POTASSIUM (BEAKER) (test 3.9 meq/L 3.5-5.1 nros=086) CHLORIDE (BEAKER) (test 107 meq/L 98-107 juay=851) CO2 (BEAKER) (test 23 meq/L 22-29 figl=766) BLOOD UREA NITROGEN 41 mg/dL 7-21 (BEAKER) (test yiog=416) CREATININE (BEAKER) (test 1.47 mg/dL 0.57-1.25 ppds=574) GLUCOSE RANDOM (BEAKER) 169 mg/dL 70-105 (test duto=176) CALCIUM (BEAKER) (test 10.0 mg/dL 8.4-10.2 acnu=130) AST (SGOT) (BEAKER) (test 13 U/L 5-34 vazk=344) ALT (SGPT) (BEAKER) (test 9 U/L 6-55 ogbx=119) EGFR (BEAKER) (test 50 mL/min/1.73 sq m ESTIMATED GFR IS NOT wcsq=1812) ACCURATE CREATININE CLEARANCE IN PREDICTING GLOMERULAR FILTRATION RATE. ESTIMATED GFR IS NOT APPLICABLE FOR DIALYSIS PATIENTS. CALCIUM, [id number] 05:45:00 Test Item Value Reference Range Comments CALCIUM IONIZED (BEAKER) (test rdjo=882) 1.28 mmol/L 1.12-1.27 PH, BLOOD (BEAKER) (test nvuo=0007) 7.39 POCT-GLUCOSE [id number] 21:51:00 Test Item Value Reference Range Comments POC-GLUCOSE METER (BEAKER) 143 mg/dL 70-110 TESTED AT [address] (test giud=1395) [place] [address] POCT-GLUCOSE [id number] 17:44:00 Test Item Value Reference Range Comments POC-GLUCOSE METER (BEAKER) 288 mg/dL 70-110 TESTED AT [address] (test sshw=3850) [place] [address] POCT-GLUCOSE [id number] 12:55:00 Test Item Value Reference Range Comments POC-GLUCOSE METER (BEAKER) 310 mg/dL 70-110 TESTED AT [address] (test ntde=9434) [place] [address] POCT-GLUCOSE [id number] 09:01:00 Test Item Value Reference Range Comments POC-GLUCOSE METER (BEAKER) 162 mg/dL 70-110 TESTED AT [address] (test qnes=0736) [place] [address] HEMOGLOBIN AND [id number] 08:59:00 Test Item Value Reference Range Comments HEMOGLOBIN (BEAKER) (test exjz=144) 6.6 GM/DL 13.7-17.5 HEMATOCRIT (BEAKER) (test ydqe=377) 19.7 % 40.1-51.0 [id number] 06:54:00 Test Item Value Reference Range Comments PHOSPHORUS (BEAKER) (test xspo=691) 1.0 mg/dL 2.3-4.7 [id number] 06:42:00 Test Item Value Reference Range Comments MAGNESIUM (BEAKER) (test fvnt=117) 2.2 mg/dL 1.6-2.6 COMPREHENSIVE METABOLIC [id number] 06:42:00 Test Item Value Reference Range Comments TOTAL PROTEIN (BEAKER) 5.7 gm/dL 6.0-8.3 (test bwia=633) ALBUMIN (BEAKER) (test 4.3 g/dL 3.5-5.0 dbsf=8136) ALKALINE PHOSPHATASE 56 U/L 40-150 (BEAKER) (test wsvd=801) BILIRUBIN TOTAL (BEAKER) 1.3 mg/dL 0.2-1.2 (test ylcx=500) SODIUM (BEAKER) (test 134 meq/L 136-145 dsmz=686) POTASSIUM (BEAKER) (test 4.2 meq/L 3.5-5.1 hxjn=091) CHLORIDE (BEAKER) (test 107 meq/L 98-107 gumo=929) CO2 (BEAKER) (test 21 meq/L 22-29 vgly=432) BLOOD UREA NITROGEN 38 mg/dL 7-21 (BEAKER) (test zqjm=357) CREATININE (BEAKER) (test 1.41 mg/dL 0.57-1.25 ftun=650) GLUCOSE RANDOM (BEAKER) 144 mg/dL 70-105 (test nhcd=776) CALCIUM (BEAKER) (test 10.6 mg/dL 8.4-10.2 etvg=935) AST (SGOT) (BEAKER) (test 13 U/L 5-34 zlwy=737) ALT (SGPT) (BEAKER) (test 8 U/L 6-55 qtmq=847) EGFR (BEAKER) (test 53 mL/min/1.73 sq m ESTIMATED GFR IS NOT mhxb=4582) ACCURATE CREATININE CLEARANCE IN PREDICTING GLOMERULAR FILTRATION RATE. ESTIMATED GFR IS NOT APPLICABLE FOR DIALYSIS PATIENTS. CALCIUM, [id number] 05:52:00 Test Item Value Reference Range Comments CALCIUM IONIZED (BEAKER) (test lqli=640) 1.25 mmol/L 1.12-1.27 PH, BLOOD (BEAKER) (test ypzk=5943) 7.47 CBC W/PLT COUNT & AUTO [id number] 04:49:00 Test Item Value Reference Range Comments WHITE BLOOD CELL COUNT (BEAKER) (test dxhw=775) 4.6 K/ L 3.5-10.5 RED BLOOD CELL COUNT (BEAKER) (test kdlx=369) 2.09 M/ L 4.63-6.08 HEMOGLOBIN (BEAKER) (test txcf=832) 6.6 GM/DL 13.7-17.5 HEMATOCRIT (BEAKER) (test gyws=562) 19.8 % 40.1-51.0 MEAN CORPUSCULAR VOLUME (BEAKER) (test oznz=637) 94.7 fL 79.0-92.2 MEAN CORPUSCULAR HEMOGLOBIN (BEAKER) (test 31.6 pg 25.7-32.2 sydw=140) MEAN CORPUSCULAR HEMOGLOBIN CONC (BEAKER) (test 33.3 GM/DL 32.3-36.5 vjgr=660) RED CELL DISTRIBUTION WIDTH (BEAKER) (test 16.0 % 11.6-14.4 zncq=858) PLATELET COUNT (BEAKER) (test mtlt=178) 49 K/CU MM 150-450 MEAN PLATELET VOLUME (BEAKER) (test xkkd=377) 9.3 fL 9.4-12.4 NUCLEATED RED BLOOD CELLS (BEAKER) (test 0 /100 WBC 0-0 sgic=301) NEUTROPHILS RELATIVE PERCENT (BEAKER) (test 84 % cnsk=681) LYMPHOCYTES RELATIVE PERCENT (BEAKER) (test 6 % pbli=377) MONOCYTES RELATIVE PERCENT (BEAKER) (test 8 % oxob=526) EOSINOPHILS RELATIVE PERCENT (BEAKER) (test 0 % ewsx=054) BASOPHILS RELATIVE PERCENT (BEAKER) (test 0 % guwm=152) NEUTROPHILS ABSOLUTE COUNT (BEAKER) (test 3.90 K/ L 1.78-5.38 sysf=867) LYMPHOCYTES ABSOLUTE COUNT (BEAKER) (test 0.29 K/ L 1.32-3.57 yyhv=432) MONOCYTES ABSOLUTE COUNT (BEAKER) (test casl=893) 0.39 K/ L 0.30-0.82 EOSINOPHILS ABSOLUTE COUNT (BEAKER) (test 0.00 K/ L 0.04-0.54 rgik=791) BASOPHILS ABSOLUTE COUNT (BEAKER) (test qalr=460) 0.00 K/ L 0.01-0.08 IMMATURE GRANULOCYTES-RELATIVE PERCENT (BEAKER) 1 % 0-1 (test jqcw=6572) POCT-GLUCOSE [id number] 22:24:00 Test Item Value Reference Range Comments POC-GLUCOSE METER (BEAKER) 272 mg/dL 70-110 TESTED AT [address] (test dkiv=9005) [place] [id number] BODY FLUID CELL COUNT WITH [id number] 20:26:00 Test Item Value Reference Range Comments APPEARANCE FLUID (BEAKER) (test bxpw=002) Clear Clear COLOR FLUID (BEAKER) (test vilk=490) Yellow Colorless, Straw RBC FLUID (BEAKER) (test jzak=980) 160 /cu mm <=1 ADJUSTED WBC FLUID (BEAKER) (test wwfi=7854) 66 /cu mm <=5 LINING CELLS (BEAKER) (test kowd=5363) 0 /cu mm <=1 NEUTROPHILS FLUID (BEAKER) (test cppy=7645) 2 % LYMPHS FLUID (BEAKER) (test uvbt=578) 17 % MONO/MACROPHAGE FLUID (BEAKER) (test xnbf=764) 81 % EOSINOPHILS FLUID (BEAKER) (test kune=670) 0 % BASO FLUID (BEAKER) (test eirl=712) 0 % CONTAINER BODY FLUID (BEAKER) (test skur=4523) EDTA Tube ALBUMIN, BODY [id number] 18:58:00 Test Item Value Reference Range Comments ALBUMIN FLUID (BEAKER) (test nbwo=869) 1.6 gm/dL Reference Range: No Normals Assay performance has not been validated for this type of specimen.POCT-GLUCOSE [id number] 17:51:00 Test Item Value Reference Range Comments POC-GLUCOSE METER (BEAKER) 275 mg/dL 70-110 TESTED AT [address] (test pqus=5243) [place] [id number] U/S, [id number] 16:16:00Reason for exam:->ascitesFINAL REPORT History: Ascites. Procedure: Following informed written consent, the patient's left lower quadrant was prepped and draped in the usual sterile manner. 2% lidocaine was given locally for anesthesia. No conscious sedation was administered. Using ultrasound guidance and a 5 chilean angiocatheter, access was gained to the left [...] fluid was removed without complications. Signed: Karina Rainort Verified Date/Time: 11/18/2018 16:16:57 Reading Location: [facility] [id number] Ultrasound Reading Room POCT-GLUCOSE [id number] 10:24:00 Test Item Value Reference Range Comments POC-GLUCOSE METER (BEAKER) 187 mg/dL 70-[address] [facility] [address] [facility] (test gdnd=4732) [facility] [address] CALCIUM, [id number] 07:11:00 Test Item Value Reference Range Comments CALCIUM IONIZED (BEAKER) (test ejum=686) 1.42 mmol/L 1.12-1.27 PH, BLOOD (BEAKER) (test dtci=1445) 7.38 VITAMIN D, [id number] 07:00:00 Test Item Value Reference Range Comments VITAMIN D 25-OH (BEAKER) (test nsec=0941) 6.3 ng/mL 6.6-49.9 Effective 08/06/2017: Reference Range ChangeNew: 6.6-49.9 ng/mL Previous: 13.0 -47.8 ng/mLRecommended Vitamin D Target Range: 30.0-40.0 ng/[id number] 06:43:00 Test Item Value Reference Range Comments PHOSPHORUS (BEAKER) (test uano=751) 1.6 mg/dL 2.3-4.7 [id number] 06:43:00 Test Item Value Reference Range Comments MAGNESIUM (BEAKER) (test beqt=937) 2.1 mg/dL 1.6-2.6 PTH, [id number] 06:43:00 Test Item Value Reference Range Comments PARATHYROID HORMONE INTACT (BEAKER) (test 18.8 pg/mL 8.5-72.5 kkjt=484) COMPREHENSIVE METABOLIC [id number] 06:43:00 Test Item Value Reference Range Comments TOTAL PROTEIN (BEAKER) 5.9 gm/dL 6.0-8.3 (test sjiu=684) ALBUMIN (BEAKER) (test 4.4 g/dL 3.5-5.0 dwbv=3016) ALKALINE PHOSPHATASE 66 U/L 40-150 (BEAKER) (test zcju=125) BILIRUBIN TOTAL (BEAKER) 1.5 mg/dL 0.2-1.2 (test fdmq=467) SODIUM (BEAKER) (test 134 meq/L 136-145 ljjb=774) POTASSIUM (BEAKER) (test 3.2 meq/L 3.5-5.1 omuh=601) CHLORIDE (BEAKER) (test 104 meq/L 98-107 ealf=221) CO2 (BEAKER) (test 21 meq/L 22-29 kwrv=084) BLOOD UREA NITROGEN 33 mg/dL 7-21 (BEAKER) (test srml=473) CREATININE (BEAKER) (test 1.60 mg/dL 0.57-1.25 lqsf=683) GLUCOSE RANDOM (BEAKER) 149 mg/dL 70-105 (test ncyy=055) CALCIUM (BEAKER) (test 11.1 mg/dL 8.4-10.2 ontk=768) AST (SGOT) (BEAKER) (test 12 U/L 5-34 mymo=250) ALT (SGPT) (BEAKER) (test 9 U/L 6-55 dahn=788) EGFR (BEAKER) (test 45 mL/min/1.73 sq m ESTIMATED GFR IS NOT nugo=6460) ACCURATE CREATININE CLEARANCE IN PREDICTING GLOMERULAR FILTRATION RATE. ESTIMATED GFR IS NOT APPLICABLE FOR DIALYSIS PATIENTS. CBC W/PLT COUNT & AUTO [id number] 06:28:00 Test Item Value Reference Range Comments WHITE BLOOD CELL COUNT (BEAKER) (test ijxq=014) 4.6 K/ L 3.5-10.5 RED BLOOD CELL COUNT (BEAKER) (test cotf=044) 2.27 M/ L 4.63-6.08 HEMOGLOBIN (BEAKER) (test kmbc=908) 7.3 GM/DL 13.7-17.5 HEMATOCRIT (BEAKER) (test bbku=008) 21.4 % 40.1-51.0 MEAN CORPUSCULAR VOLUME (BEAKER) (test mrhw=121) 94.3 fL 79.0-92.2 MEAN CORPUSCULAR HEMOGLOBIN (BEAKER) (test 32.2 pg 25.7-32.2 qjbo=129) MEAN CORPUSCULAR HEMOGLOBIN CONC (BEAKER) (test 34.1 GM/DL 32.3-36.5 ipuk=027) RED CELL DISTRIBUTION WIDTH (BEAKER) (test 15.8 % 11.6-14.4 xfjr=793) PLATELET COUNT (BEAKER) (test uvqm=350) 51 K/CU MM 150-450 MEAN PLATELET VOLUME (BEAKER) (test jbha=009) 9.8 fL 9.4-12.4 NUCLEATED RED BLOOD CELLS (BEAKER) (test 0 /100 WBC 0-0 rkwy=800) NEUTROPHILS RELATIVE PERCENT (BEAKER) (test 76 % vdpg=906) LYMPHOCYTES RELATIVE PERCENT (BEAKER) (test 7 % kfym=877) MONOCYTES RELATIVE PERCENT (BEAKER) (test 15 % mpnh=268) EOSINOPHILS RELATIVE PERCENT (BEAKER) (test 1 % lyrv=206) BASOPHILS RELATIVE PERCENT (BEAKER) (test 0 % ijmr=051) NEUTROPHILS ABSOLUTE COUNT (BEAKER) (test 3.50 K/ L 1.78-5.38 tvps=324) LYMPHOCYTES ABSOLUTE COUNT (BEAKER) (test 0.31 K/ L 1.32-3.57 atds=517) MONOCYTES ABSOLUTE COUNT (BEAKER) (test zzef=557) 0.69 K/ L 0.30-0.82 EOSINOPHILS ABSOLUTE COUNT (BEAKER) (test 0.04 K/ L 0.04-0.54 bept=668) BASOPHILS ABSOLUTE COUNT (BEAKER) (test byfy=488) 0.00 K/ L 0.01-0.08 IMMATURE GRANULOCYTES-RELATIVE PERCENT (BEAKER) 1 % 0-1 (test exsj=0813) POCT-GLUCOSE [id number] 23:08:00 Test Item Value Reference Range Comments POC-GLUCOSE METER (BEAKER) 259 mg/dL 70-[address] [facility] [address] [facility] (test unqc=7818) [facility] [address] POCT-GLUCOSE [id number] 18:53:00 Test Item Value Reference Range Comments POC-GLUCOSE METER (BEAKER) 211 mg/dL 70-[address] [facility] [address] [facility] (test qksj=4514) [facility] [address] POCT-GLUCOSE [id number] 08:37:00 Test Item Value Reference Range Comments POC-GLUCOSE METER (BEAKER) 208 mg/dL 70-[address] [facility] [address] [facility] (test unhw=3487) [facility] [address] [id number] 07:38:00 Test Item Value Reference Range Comments PHOSPHORUS (BEAKER) (test emon=853) 2.3 mg/dL 2.3-4.7 [id number] 07:38:00 Test Item Value Reference Range Comments MAGNESIUM (BEAKER) (test drbr=855) 2.2 mg/dL 1.6-2.6 BASIC METABOLIC [id number] 07:38:00 Test Item Value Reference Range Comments SODIUM (BEAKER) (test 132 meq/L 136-145 fgrt=729) POTASSIUM (BEAKER) (test 3.9 meq/L 3.5-5.1 tmeu=452) CHLORIDE (BEAKER) (test 103 meq/L 98-107 atoo=114) CO2 (BEAKER) (test 18 meq/L 22-29 xlao=999) BLOOD UREA NITROGEN 32 mg/dL 7-21 (BEAKER) (test pibm=089) CREATININE (BEAKER) (test 1.59 mg/dL 0.57-1.25 cxnj=376) GLUCOSE RANDOM (BEAKER) 152 mg/dL 70-105 (test fgwe=670) CALCIUM (BEAKER) (test 10.9 mg/dL 8.4-10.2 bdfn=880) EGFR (BEAKER) (test 46 mL/min/1.73 sq m ESTIMATED GFR IS NOT cbhu=8411) ACCURATE CREATININE CLEARANCE IN PREDICTING GLOMERULAR FILTRATION RATE. ESTIMATED GFR IS NOT APPLICABLE FOR DIALYSIS PATIENTS. CALCIUM, [id number] 07:14:00 Test Item Value Reference Range Comments CALCIUM IONIZED (BEAKER) (test dycj=509) 1.33 mmol/L 1.12-1.27 PH, BLOOD (BEAKER) (test vyiz=3997) 7.34 CBC W/PLT COUNT & AUTO [id number] 07:13:00 Test Item Value Reference Range Comments WHITE BLOOD CELL COUNT (BEAKER) (test opsh=009) 5.7 K/ L 3.5-10.5 RED BLOOD CELL COUNT (BEAKER) (test cgqv=689) 2.38 M/ L 4.63-6.08 HEMOGLOBIN (BEAKER) (test olmt=492) 7.6 GM/DL 13.7-17.5 HEMATOCRIT (BEAKER) (test cblv=984) 22.6 % 40.1-51.0 MEAN CORPUSCULAR VOLUME (BEAKER) (test oysv=333) 95.0 fL 79.0-92.2 MEAN CORPUSCULAR HEMOGLOBIN (BEAKER) (test 31.9 pg 25.7-32.2 bpsx=649) MEAN CORPUSCULAR HEMOGLOBIN CONC (BEAKER) (test 33.6 GM/DL 32.3-36.5 lzgh=292) RED CELL DISTRIBUTION WIDTH (BEAKER) (test 15.8 % 11.6-14.4 rsoa=631) PLATELET COUNT (BEAKER) (test qgwh=048) 60 K/CU MM 150-450 MEAN PLATELET VOLUME (BEAKER) (test nxjp=222) 9.6 fL 9.4-12.4 NUCLEATED RED BLOOD CELLS (BEAKER) (test 0 /100 WBC 0-0 hdjt=203) NEUTROPHILS RELATIVE PERCENT (BEAKER) (test 79 % acyr=920) LYMPHOCYTES RELATIVE PERCENT (BEAKER) (test 7 % ugxv=808) MONOCYTES RELATIVE PERCENT (BEAKER) (test 14 % peuw=105) EOSINOPHILS RELATIVE PERCENT (BEAKER) (test 0 % wkst=889) BASOPHILS RELATIVE PERCENT (BEAKER) (test 0 % trvu=560) NEUTROPHILS ABSOLUTE COUNT (BEAKER) (test 4.49 K/ L 1.78-5.38 pjuj=180) LYMPHOCYTES ABSOLUTE COUNT (BEAKER) (test 0.38 K/ L 1.32-3.57 ajgv=439) MONOCYTES ABSOLUTE COUNT (BEAKER) (test enbd=015) 0.77 K/ L 0.30-0.82 EOSINOPHILS ABSOLUTE COUNT (BEAKER) (test 0.00 K/ L 0.04-0.54 mqrw=962) BASOPHILS ABSOLUTE COUNT (BEAKER) (test txte=789) 0.00 K/ L 0.01-0.08 IMMATURE GRANULOCYTES-RELATIVE PERCENT (BEAKER) 1 % 0-1 (test wfpx=4671) POCT-GLUCOSE [id number] 21:28:00 Test Item Value Reference Range Comments POC-GLUCOSE METER (BEAKER) 229 mg/dL 70-110 TESTED AT [address] (test caty=6294) [place] [address] POCT-GLUCOSE [id number] 16:58:00 Test Item Value Reference Range Comments POC-GLUCOSE METER (BEAKER) 207 mg/dL 70-110 TESTED AT [address] (test ntau=3620) [place] [address] POCT-GLUCOSE [id number] 15:38:00 Test Item Value Reference Range Comments POC-GLUCOSE METER (BEAKER) 198 mg/dL 70-110 TESTED AT [address] (test icny=3258) [place] [address] BASIC METABOLIC [id number] 14:09:00 Test Item Value Reference Range Comments SODIUM (BEAKER) (test 128 meq/L 136-145 ylvw=570) POTASSIUM (BEAKER) (test 3.7 meq/L 3.5-5.1 luhe=283) CHLORIDE (BEAKER) (test 102 meq/L 98-107 xkak=122) CO2 (BEAKER) (test 17 meq/L 22-29 fpec=221) BLOOD UREA NITROGEN 32 mg/dL 7-21 (BEAKER) (test qmzy=836) CREATININE (BEAKER) (test 1.59 mg/dL 0.57-1.25 qfsd=497) GLUCOSE RANDOM (BEAKER) 200 mg/dL 70-105 (test wjxu=337) CALCIUM (BEAKER) (test 10.1 mg/dL 8.4-10.2 bbty=435) EGFR (BEAKER) (test 46 mL/min/1.73 sq m ESTIMATED GFR IS NOT lgzs=2342) ACCURATE CREATININE CLEARANCE IN PREDICTING GLOMERULAR FILTRATION RATE. ESTIMATED GFR IS NOT APPLICABLE FOR DIALYSIS PATIENTS. POCT-GLUCOSE [id number] 08:26:00 Test Item Value Reference Range Comments POC-GLUCOSE METER (BEAKER) 188 mg/dL 70-110 TESTED AT [address] (test ijck=6800) [place] [address] BLOOD [id number] 07:00:00 Test Item Value Reference Range Comments CULTURE (BEAKER) (test wjpk=5646) No growth in 5 days BLOOD [id number] 07:00:00 Test Item Value Reference Range Comments CULTURE (BEAKER) (test nsay=3064) No growth in 5 days BLOOD GAS, [id number] 06:30:00 Test Item Value Reference Range Comments PH VENOUS (BEAKER) (test jbit=366) 7.39 7.32-7.42 PCO2 VENOUS (BEAKER) (test hnca=037) 35 mmHg 41-51 PO2 VENOUS (BEAKER) (test xeoi=850) 97 mmHg 25-40 O2 SATURATION VENOUS (BEAKER) (test lehn=647) 97.4 % 40.0-70.0 HCO3 VENOUS (BEAKER) (test vaml=265) 21 mmol/L 21-29 BASE EXCESS VENOUS (BEAKER) (test vlbn=854) -3.8 mmol/L -2.0-3.0 PATIENT TEMPERATURE (BEAKER) (test xtzx=9087) 37.0 C FIO2 (BEAKER) (test jezr=6702) 100.0 % CBC W/PLT COUNT & AUTO [id number] 06:20:00 Test Item Value Reference Range Comments WHITE BLOOD CELL COUNT (BEAKER) (test jaen=211) 6.2 K/ L 3.5-10.5 RED BLOOD CELL COUNT (BEAKER) (test puwl=256) 2.22 M/ L 4.63-6.08 HEMOGLOBIN (BEAKER) (test zqqp=953) 7.0 GM/DL 13.7-17.5 HEMATOCRIT (BEAKER) (test juii=991) 20.4 % 40.1-51.0 MEAN CORPUSCULAR VOLUME (BEAKER) (test fibs=322) 91.9 fL 79.0-92.2 MEAN CORPUSCULAR HEMOGLOBIN (BEAKER) (test 31.5 pg 25.7-32.2 lgna=369) MEAN CORPUSCULAR HEMOGLOBIN CONC (BEAKER) (test 34.3 GM/DL 32.3-36.5 jlhh=695) RED CELL DISTRIBUTION WIDTH (BEAKER) (test 14.9 % 11.6-14.4 xucg=717) PLATELET COUNT (BEAKER) (test ssrv=040) 53 K/CU MM 150-450 MEAN PLATELET VOLUME (BEAKER) (test lqda=422) 9.5 fL 9.4-12.4 NUCLEATED RED BLOOD CELLS (BEAKER) (test 0 /100 WBC 0-0 qinb=002) NEUTROPHILS RELATIVE PERCENT (BEAKER) (test 84 % xsgj=251) LYMPHOCYTES RELATIVE PERCENT (BEAKER) (test 5 % aceo=365) MONOCYTES RELATIVE PERCENT (BEAKER) (test 11 % xcwl=112) EOSINOPHILS RELATIVE PERCENT (BEAKER) (test 0 % fuhj=630) BASOPHILS RELATIVE PERCENT (BEAKER) (test 0 % glbt=760) NEUTROPHILS ABSOLUTE COUNT (BEAKER) (test 5.16 K/ L 1.78-5.38 eezk=159) LYMPHOCYTES ABSOLUTE COUNT (BEAKER) (test 0.30 K/ L 1.32-3.57 shhp=875) MONOCYTES ABSOLUTE COUNT (BEAKER) (test pdzt=111) 0.69 K/ L 0.30-0.82 EOSINOPHILS ABSOLUTE COUNT (BEAKER) (test 0.00 K/ L 0.04-0.54 ksqy=968) BASOPHILS ABSOLUTE COUNT (BEAKER) (test enxd=801) 0.00 K/ L 0.01-0.08 IMMATURE GRANULOCYTES-RELATIVE PERCENT (BEAKER) 1 % 0-1 (test eafd=3036) POCT-GLUCOSE [id number] 05:04:00 Test Item Value Reference Range Comments POC-GLUCOSE METER (BEAKER) 298 mg/dL 70-110 TESTED AT [address] (test uviu=4519) [place] [id number] POCT-GLUCOSE [id number] 12:28:00 Test Item Value Reference Range Comments POC-GLUCOSE METER (BEAKER) 261 mg/dL 70-110 TESTED AT [address] (test puvr=1336) [place] [address] BODY FLUID CULTURE + GRAM [id number] 10:18:00 Test Item Value Reference Range Comments CULTURE (BEAKER) (test dhbt=5945) No growth GRAM STAIN RESULT (BEAKER) (test 1+ WBCs oasz=1681) GRAM STAIN RESULT (BEAKER) (test No organisms seen zaub=86530) CBC W/PLT COUNT & AUTO [id number] 09:22:00 Test Item Value Reference Range Comments WHITE BLOOD CELL COUNT (BEAKER) (test wgbp=740) 6.7 K/ L 3.5-10.5 RED BLOOD CELL COUNT (BEAKER) (test zwgj=019) 2.18 M/ L 4.63-6.08 HEMOGLOBIN (BEAKER) (test yvmf=311) 7.0 GM/DL 13.7-17.5 HEMATOCRIT (BEAKER) (test zaci=783) 20.4 % 40.1-51.0 MEAN CORPUSCULAR VOLUME (BEAKER) (test xaze=924) 93.6 fL 79.0-92.2 MEAN CORPUSCULAR HEMOGLOBIN (BEAKER) (test 32.1 pg 25.7-32.2 idpn=953) MEAN CORPUSCULAR HEMOGLOBIN CONC (BEAKER) (test 34.3 GM/DL 32.3-36.5 ieyh=058) RED CELL DISTRIBUTION WIDTH (BEAKER) (test 15.1 % 11.6-14.4 sfuo=726) PLATELET COUNT (BEAKER) (test wodo=150) 62 K/CU MM 150-450 MEAN PLATELET VOLUME (BEAKER) (test bocv=742) 9.0 fL 9.4-12.4 NUCLEATED RED BLOOD CELLS (BEAKER) (test 0 /100 WBC 0-0 ytvo=711) NEUTROPHILS RELATIVE PERCENT (BEAKER) (test 84 % xyuk=148) LYMPHOCYTES RELATIVE PERCENT (BEAKER) (test 5 % gkzu=450) MONOCYTES RELATIVE PERCENT (BEAKER) (test 10 % kwvx=370) EOSINOPHILS RELATIVE PERCENT (BEAKER) (test 0 % lzft=741) BASOPHILS RELATIVE PERCENT (BEAKER) (test 0 % rgso=724) NEUTROPHILS ABSOLUTE COUNT (BEAKER) (test 5.63 K/ L 1.78-5.38 kfhw=274) LYMPHOCYTES ABSOLUTE COUNT (BEAKER) (test 0.32 K/ L 1.32-3.57 czcs=727) MONOCYTES ABSOLUTE COUNT (BEAKER) (test pbsv=868) 0.66 K/ L 0.30-0.82 EOSINOPHILS ABSOLUTE COUNT (BEAKER) (test 0.00 K/ L 0.04-0.54 hxdw=260) BASOPHILS ABSOLUTE COUNT (BEAKER) (test xved=729) 0.00 K/ L 0.01-0.08 IMMATURE GRANULOCYTES-RELATIVE PERCENT (BEAKER) 1 % 0-1 (test dpnj=5805) POCT-GLUCOSE [id number] 08:59:00 Test Item Value Reference Range Comments POC-GLUCOSE METER (BEAKER) 180 mg/dL 70-[address] [facility] [address] [facility] (test youd=8422) [facility] [address] POCT-GLUCOSE [id number] 21:23:00 Test Item Value Reference Range Comments POC-GLUCOSE METER (BEAKER) 224 mg/dL 70-[address] [facility] [address] [facility] (test rxle=1675) [facility] [address] SODIUM, RANDOM [id number] 19:24:00 Test Item Value Reference Range Comments SODIUM URINE (BEAKER) (test ypbs=178) < meq/L Reference Range: No NormalsCREATININE, RANDOM [id number] 19:22:00 Test Item Value Reference Range Comments CREATININE URINE (BEAKER) (test jpla=802) 103.7 mg/dL Reference Range: No NormalsBASIC METABOLIC [id number] 19:18:00 Test Item Value Reference Range Comments SODIUM (BEAKER) (test 127 meq/L 136-145 gyla=218) POTASSIUM (BEAKER) (test 3.5 meq/L 3.5-5.1 msmu=668) CHLORIDE (BEAKER) (test 102 meq/L 98-107 ooyk=737) CO2 (BEAKER) (test 15 meq/L 22-29 cilt=900) BLOOD UREA NITROGEN 34 mg/dL 7-21 (BEAKER) (test bszi=762) CREATININE (BEAKER) (test 1.61 mg/dL 0.57-1.25 dngq=786) GLUCOSE RANDOM (BEAKER) 194 mg/dL 70-105 (test omkz=952) CALCIUM (BEAKER) (test 9.3 mg/dL 8.4-10.2 zjje=172) EGFR (BEAKER) (test 45 mL/min/1.73 sq m ESTIMATED GFR IS NOT hrvx=9244) ACCURATE CREATININE CLEARANCE IN PREDICTING GLOMERULAR FILTRATION RATE. ESTIMATED GFR IS NOT APPLICABLE FOR DIALYSIS PATIENTS. OSMOLALITY, [id number] 18:58:00 Test Item Value Reference Range Comments OSMOLALITY URINE (BEAKER) (test cqzk=714) 490 mOsm/kg 40-1,400 URINALYSIS W/ REFLEX URINE [id number] 18:48:00 Test Item Value Reference Range Comments COLOR (BEAKER) (test tdpz=162) Yellow CLARITY (BEAKER) (test kczb=610) Clear SPECIFIC GRAVITY UA (BEAKER) (test oooo=775) 1.016 1.001-1.035 PH UA (BEAKER) (test mcak=502) 6.0 5.0-8.0 PROTEIN UA (BEAKER) (test oxai=279) Negative Negative GLUCOSE UA (BEAKER) (test touf=029) Negative Negative KETONES UA (BEAKER) (test nncg=297) Negative Negative BILIRUBIN UA (BEAKER) (test airo=667) Negative Negative BLOOD UA (BEAKER) (test jfvl=619) Negative Negative NITRITE UA (BEAKER) (test ijls=761) Negative Negative LEUKOCYTE ESTERASE UA (BEAKER) (test sffj=560) Negative Negative UROBILINOGEN UA (BEAKER) (test bnfg=013) 0.2 mg/dL 0.2-1.0 RBC UA (BEAKER) (test jpxu=133) < /HPF WBC UA (BEAKER) (test yjeq=379) 1 /HPF SQUAMOUS EPITHELIAL (BEAKER) (test eeug=597) < /HPF HYALINE CASTS (BEAKER) (test jhbu=386) 5 /LPF SOURCE(BEAKER) (test jcoo=3500) POCT-GLUCOSE [id number] 17:31:00 Test Item Value Reference Range Comments POC-GLUCOSE METER (BEAKER) 219 mg/dL 70-110 TESTED AT [address] (test hlpf=0707) [place] [id number] POCT-GLUCOSE [id number] 12:14:00 Test Item Value Reference Range Comments POC-GLUCOSE METER (BEAKER) 242 mg/dL 70-110 TESTED AT [address] (test vqjg=2152) [place] [id number] POCT-GLUCOSE [id number] 09:00:00 Test Item Value Reference Range Comments POC-GLUCOSE METER (BEAKER) 259 mg/dL 70-110 TESTED AT [address] (test zsnq=3585) [place] [address] [id number] 06:29:00 Test Item Value Reference Range Comments PHOSPHORUS (BEAKER) (test cdvv=336) 4.0 mg/dL 2.3-4.7 [id number] 06:29:00 Test Item Value Reference Range Comments MAGNESIUM (BEAKER) (test wjbg=095) 1.6 mg/dL 1.6-2.6 BASIC METABOLIC [id number] 06:29:00 Test Item Value Reference Range Comments SODIUM (BEAKER) (test 125 meq/L 136-145 rfwh=775) POTASSIUM (BEAKER) (test 3.9 meq/L 3.5-5.1 zsnw=809) CHLORIDE (BEAKER) (test 102 meq/L 98-107 bvis=328) CO2 (BEAKER) (test 17 meq/L 22-29 vdgy=436) BLOOD UREA NITROGEN 35 mg/dL 7-21 (BEAKER) (test dres=656) CREATININE (BEAKER) (test 1.60 mg/dL 0.57-1.25 most=436) GLUCOSE RANDOM (BEAKER) 162 mg/dL 70-105 (test fbdv=731) CALCIUM (BEAKER) (test 8.7 mg/dL 8.4-10.2 hfuh=155) EGFR (BEAKER) (test 45 mL/min/1.73 sq m ESTIMATED GFR IS NOT euvz=9884) ACCURATE CREATININE CLEARANCE IN PREDICTING GLOMERULAR FILTRATION RATE. ESTIMATED GFR IS NOT APPLICABLE FOR DIALYSIS PATIENTS. PH, [id number] 05:47:00 Test Item Value Reference Range Comments PH VENOUS (BEAKER) (test evav=500) 7.39 7.32-7.42 CALCIUM, [id number] 05:47:00 Test Item Value Reference Range Comments CALCIUM IONIZED (BEAKER) (test kxml=900) 1.15 mmol/L 1.12-1.27 PH, BLOOD (BEAKER) (test orpa=2599) 7.39 CBC W/PLT COUNT & AUTO [id number] 05:22:00 Test Item Value Reference Range Comments WHITE BLOOD CELL COUNT (BEAKER) (test ioux=621) 4.5 K/ L 3.5-10.5 RED BLOOD CELL COUNT (BEAKER) (test zhay=768) 2.52 M/ L 4.63-6.08 HEMOGLOBIN (BEAKER) (test ukab=151) 8.0 GM/DL 13.7-17.5 HEMATOCRIT (BEAKER) (test rsje=129) 23.4 % 40.1-51.0 MEAN CORPUSCULAR VOLUME (BEAKER) (test qubu=412) 92.9 fL 79.0-92.2 MEAN CORPUSCULAR HEMOGLOBIN (BEAKER) (test 31.7 pg 25.7-32.2 lbtm=687) MEAN CORPUSCULAR HEMOGLOBIN CONC (BEAKER) (test 34.2 GM/DL 32.3-36.5 zqvc=783) RED CELL DISTRIBUTION WIDTH (BEAKER) (test 14.7 % 11.6-14.4 aitk=273) PLATELET COUNT (BEAKER) (test ikwb=578) 55 K/CU MM 150-450 MEAN PLATELET VOLUME (BEAKER) (test fszh=774) 9.4 fL 9.4-12.4 NUCLEATED RED BLOOD CELLS (BEAKER) (test 0 /100 WBC 0-0 rijv=829) NEUTROPHILS RELATIVE PERCENT (BEAKER) (test 82 % eypa=445) LYMPHOCYTES RELATIVE PERCENT (BEAKER) (test 9 % qxuv=696) MONOCYTES RELATIVE PERCENT (BEAKER) (test 9 % kmbs=493) EOSINOPHILS RELATIVE PERCENT (BEAKER) (test 0 % bdbd=047) BASOPHILS RELATIVE PERCENT (BEAKER) (test 0 % wila=933) NEUTROPHILS ABSOLUTE COUNT (BEAKER) (test 3.68 K/ L 1.78-5.38 qncp=898) LYMPHOCYTES ABSOLUTE COUNT (BEAKER) (test 0.38 K/ L 1.32-3.57 yfgr=740) MONOCYTES ABSOLUTE COUNT (BEAKER) (test ohyl=141) 0.39 K/ L 0.30-0.82 EOSINOPHILS ABSOLUTE COUNT (BEAKER) (test 0.00 K/ L 0.04-0.54 xejt=401) BASOPHILS ABSOLUTE COUNT (BEAKER) (test aknv=563) 0.01 K/ L 0.01-0.08 IMMATURE GRANULOCYTES-RELATIVE PERCENT (BEAKER) 1 % 0-1 (test ixgg=2765) POCT-GLUCOSE [id number] 20:56:00 Test Item Value Reference Range Comments POC-GLUCOSE METER (BEAKER) 199 mg/dL 70-110 TESTED AT [address] (test vyvj=2865) [place] [address] POCT-GLUCOSE [id number] 17:21:00 Test Item Value Reference Range Comments POC-GLUCOSE METER (BEAKER) 184 mg/dL 70-110 TESTED AT [address] (test phbo=2235) [place] [address] POCT-GLUCOSE [id number] 12:35:00 Test Item Value Reference Range Comments POC-GLUCOSE METER (BEAKER) 259 mg/dL 70-110 TESTED AT [place] [id number] [facility] (test akiq=0852) [facility] [address] POCT-GLUCOSE [id number] 09:15:00 Test Item Value Reference Range Comments POC-GLUCOSE METER (BEAKER) 146 mg/dL 70-110 TESTED AT [address] (test ijit=9013) [facility] [address] CALCIUM, [id number] 07:31:00 Test Item Value Reference Range Comments CALCIUM IONIZED (BEAKER) (test neqk=041) 1.16 mmol/L 1.12-1.27 PH, BLOOD (BEAKER) (test pjwh=3380) 7.36 CBC W/PLT COUNT & AUTO [id number] 06:59:00 Test Item Value Reference Range Comments WHITE BLOOD CELL COUNT (BEAKER) (test kaec=842) 5.2 K/ L 3.5-10.5 RED BLOOD CELL COUNT (BEAKER) (test vsek=430) 2.47 M/ L 4.63-6.08 HEMOGLOBIN (BEAKER) (test hbit=934) 7.8 GM/DL 13.7-17.5 HEMATOCRIT (BEAKER) (test cwch=150) 23.5 % 40.1-51.0 MEAN CORPUSCULAR VOLUME (BEAKER) (test fdec=142) 95.1 fL 79.0-92.2 MEAN CORPUSCULAR HEMOGLOBIN (BEAKER) (test 31.6 pg 25.7-32.2 dsuw=012) MEAN CORPUSCULAR HEMOGLOBIN CONC (BEAKER) (test 33.2 GM/DL 32.3-36.5 anrg=282) RED CELL DISTRIBUTION WIDTH (BEAKER) (test 14.9 % 11.6-14.4 jmli=983) PLATELET COUNT (BEAKER) (test znco=809) 57 K/CU MM 150-450 MEAN PLATELET VOLUME (BEAKER) (test brdx=319) 9.2 fL 9.4-12.4 NUCLEATED RED BLOOD CELLS (BEAKER) (test 0 /100 WBC 0-0 jatp=092) NEUTROPHILS RELATIVE PERCENT (BEAKER) (test 69 % mshc=653) LYMPHOCYTES RELATIVE PERCENT (BEAKER) (test 10 % yzgj=880) MONOCYTES RELATIVE PERCENT (BEAKER) (test 16 % sfry=385) EOSINOPHILS RELATIVE PERCENT (BEAKER) (test 4 % hyif=830) BASOPHILS RELATIVE PERCENT (BEAKER) (test 0 % ojos=770) NEUTROPHILS ABSOLUTE COUNT (BEAKER) (test 3.57 K/ L 1.78-5.38 knkg=760) LYMPHOCYTES ABSOLUTE COUNT (BEAKER) (test 0.53 K/ L 1.32-3.57 khgn=219) MONOCYTES ABSOLUTE COUNT (BEAKER) (test fsdl=836) 0.82 K/ L 0.30-0.82 EOSINOPHILS ABSOLUTE COUNT (BEAKER) (test 0.18 K/ L 0.04-0.54 nude=070) BASOPHILS ABSOLUTE COUNT (BEAKER) (test feop=985) 0.02 K/ L 0.01-0.08 IMMATURE GRANULOCYTES-RELATIVE PERCENT (BEAKER) 1 % 0-1 (test ifkf=0164) [id number] 06:00:00 Test Item Value Reference Range Comments PHOSPHORUS (BEAKER) (test dzzi=176) 3.6 mg/dL 2.3-4.7 [id number] 06:00:00 Test Item Value Reference Range Comments MAGNESIUM (BEAKER) (test hqlo=406) 1.8 mg/dL 1.6-2.6 BASIC METABOLIC [id number] 06:00:00 Test Item Value Reference Range Comments SODIUM (BEAKER) (test 128 meq/L 136-145 ujtq=171) POTASSIUM (BEAKER) (test 3.9 meq/L 3.5-5.1 eqen=790) CHLORIDE (BEAKER) (test 104 meq/L 98-107 wabl=856) CO2 (BEAKER) (test 17 meq/L 22-29 ryqf=741) BLOOD UREA NITROGEN 38 mg/dL 7-21 (BEAKER) (test tugn=725) CREATININE (BEAKER) (test 1.80 mg/dL 0.57-1.25 krip=372) GLUCOSE RANDOM (BEAKER) 128 mg/dL 70-105 (test lvly=072) CALCIUM (BEAKER) (test 8.9 mg/dL 8.4-10.2 dugn=695) EGFR (BEAKER) (test 40 mL/min/1.73 sq m ESTIMATED GFR IS NOT iiba=9428) ACCURATE CREATININE CLEARANCE IN PREDICTING GLOMERULAR FILTRATION RATE. ESTIMATED GFR IS NOT APPLICABLE FOR DIALYSIS PATIENTS. HEPATIC FUNCTION [id number] 06:00:00 Test Item Value Reference Range Comments TOTAL PROTEIN (BEAKER) (test uaua=067) 5.2 gm/dL 6.0-8.3 ALBUMIN (BEAKER) (test ymaf=3743) 3.0 g/dL 3.5-5.0 BILIRUBIN TOTAL (BEAKER) (test yypx=076) 1.8 mg/dL 0.2-1.2 BILIRUBIN DIRECT (BEAKER) (test dzgb=265) 1.1 mg/dL 0.1-0.5 ALKALINE PHOSPHATASE (BEAKER) (test mdqn=524) 96 U/L 40-150 AST (SGOT) (BEAKER) (test ejjh=133) 14 U/L 5-34 ALT (SGPT) (BEAKER) (test zsna=171) 8 U/L 6-55 LACTIC ACID, VENOUS, WHOLE [id number] 05:51:00 Test Item Value Reference Range Comments LACTATE BLOOD VENOUS (2) 1.8 mmol/L 0.5-2.2 Specimen slightly hemolyzed (BEAKER) (test goll=3556) [id number] 05:45:00 Test Item Value Reference Range Comments PROTIME (BEAKER) (test lota=798) 21.8 seconds 11.7-14.7 INR (BEAKER) (test nncx=513) 1.9 <=5.9 PARTIAL THROMBOPLASTIN TIME (BEAKER) (test 51.1 seconds 22.5-36.0 yfbr=521) RECOMMENDED COUMADIN/WARFARIN INR THERAPY RANGESSTANDARD DOSE: 2.0 - 3.0 Includes: PROPHYLAXIS forvenous thrombosis, systemic embolization; TREATMENT for venous thrombosis and/or pulmonary embolus.HIGH RISK: Target INR is 2.5-3.5 for patients with mechanical heart valves.CT, [id number] 22:17:00FINAL REPORT INDICATION:Abdominal pain. COMPARISON: Ultrasound abdomen [...] defect through which protrudes two adjacent fat-and- pebpqdnzsc-jsrah-eaycesancb hernia sacs which together measure 11 cm [...] fractures are new since April 2018. Signed: Jono Xiong [facility] Verified Date/Time: 11/12/2018 22:17:07 Reading Location: [facility] B1 C013W Consult Reading Room 10: 17 PMU/S, [id number] 20:32:00Reason for exam:->HEShould this be performed at the bedside?->YesFINAL REPORT PROCEDURE: Ultrasound-guided paracentesis. INDICATION: Ascites. DESCRIPTION: After obtaining informed written consent, ultrasound scan of the abdomen identified ascites in the left lower quadrant. The overlying skin was prepped and draped in the usual, sterile fashion and local 1% lidocaine anesthesia was administered. A 5 Polish catheter was advanced into the peritoneal cavity and 4100 mL of cloudy yellow fluid was removed. The catheter was removed without immediate complication. Samples were sent for analysis. IMPRESSION: Uncomplicated ultrasound-guided paracentesis with 4100 mL of fluid removed. Signed: Nataly Dupree [facility] Verified Date/Time: 11/12/2018 20:32:52 Reading Location: [address] Ultrasound Reading Room BODY FLUID CELL COUNT WITH [id number] 20:13:00 Test Item Value Reference Range Comments APPEARANCE FLUID (BEAKER) (test boya=275) Cloudy Clear COLOR FLUID (BEAKER) (test orih=172) Yellow Colorless, Straw RBC FLUID (BEAKER) (test ibue=490) 78 /cu mm <=1 ADJUSTED WBC FLUID (BEAKER) (test oowr=9131) 1355 /cu mm <=5 LINING CELLS (BEAKER) (test nuie=9627) 0 /cu mm <=1 NEUTROPHILS FLUID (BEAKER) (test pkyv=1492) 84 % LYMPHS FLUID (BEAKER) (test prld=677) 4 % MONO/MACROPHAGE FLUID (BEAKER) (test piju=214) 12 % EOSINOPHILS FLUID (BEAKER) (test kqfm=772) 0 % BASO FLUID (BEAKER) (test hlar=706) 0 % CONTAINER BODY FLUID (BEAKER) (test jdsy=2711) EDTA Tube LACTIC ACID, VENOUS, WHOLE [id number] 18:05:00 Test Item Value Reference Range Comments LACTATE BLOOD VENOUS (2) (BEAKER) (test 2.0 mmol/L 0.5-2.2 qvfz=5847) Draw after Albumin infusionPOCT-GLUCOSE [id number] 17:58:00 Test Item Value Reference Range Comments POC-GLUCOSE METER (BEAKER) 185 mg/dL 70-110 TESTED AT [address] (test cfpn=8754) [facility] [address] POCT-GLUCOSE [id number] 17:36:00 Test Item Value Reference Range Comments POC-GLUCOSE METER (BEAKER) 201 mg/dL 70-110 TESTED AT [address] (test srvm=7183) [facility] [address] U/S, ABDOMINAL, [id number] 16:40:00Abdomen limited area? Add comment if clarification [...] is patent. 3.Cholelithiasis without acute cholecystitis. Signed: Nataly Dupree MDRstanort Verified Date/Time: 11/12/2018 16:40 :20 Reading Location: [address] Ultrasound Reading Room U/S, DUPLEX, [id number] 16:40:00Please complete doppler for hepatic vasculatureReason [...] is patent. 3.Cholelithiasis without acute cholecystitis. Signed: [facility] Ver[facility] Date/Time: 11/12/2018 16:40:20 Reading Location: [address] Ultrasound Reading Room SODIUM, RANDOM [id number] 16:29:00 Test Item Value Reference Range Comments SODIUM URINE (BEAKER) (test dabx=850) < meq/L Reference Range: No NormalsCREATININE, RANDOM [id number] 16:29:00 Test Item Value Reference Range Comments CREATININE URINE (BEAKER) (test yonu=234) 237.3 mg/dL Reference Range: No NormalsPROTEIN, RANDOM [id number] 16:25:00 Test Item Value Reference Range Comments PROTEIN, URINE (BEAKER) (test bazl=8909) 15 mg/dL 0-14 OSMOLALITY, [id number] 15:33:00 Test Item Value Reference Range Comments OSMOLALITY URINE (BEAKER) (test nhdm=045) 575 mOsm/kg 40-1,400 URINALYSIS W/ REFLEX URINE [id number] 15:30:00 Test Item Value Reference Range Comments COLOR (BEAKER) (test xueh=370) Yellow CLARITY (BEAKER) (test jojv=016) Clear SPECIFIC GRAVITY UA (BEAKER) (test dpjg=097) 1.020 1.001-1.035 PH UA (BEAKER) (test qikm=325) 5.5 5.0-8.0 PROTEIN UA (BEAKER) (test yvll=702) 10 mg/dL Negative GLUCOSE UA (BEAKER) (test adft=386) Negative Negative KETONES UA (BEAKER) (test cqyk=448) Negative Negative BILIRUBIN UA (BEAKER) (test egqe=643) Negative Negative BLOOD UA (BEAKER) (test uacm=435) Small Negative NITRITE UA (BEAKER) (test flji=722) Negative Negative LEUKOCYTE ESTERASE UA (BEAKER) (test zpif=277) Negative Negative UROBILINOGEN UA (BEAKER) (test lhip=465) 0.2 mg/dL 0.2-1.0 RBC UA (BEAKER) (test avnz=409) 5 /HPF WBC UA (BEAKER) (test wyyp=605) 3 /HPF HYALINE CASTS (BEAKER) (test dnby=038) 7 /LPF SOURCE(BEAKER) (test hwei=1159) LACTIC ACID, VENOUS, WHOLE [id number] 14:42:00 Test Item Value Reference Range Comments LACTATE BLOOD VENOUS (2) (BEAKER) (test 3.2 mmol/L 0.5-2.2 dqbb=1522) RAD, ABDOMEN/KUB, 1 VIEW [id number] 09:14:00Reason for exam:->persistent vomitignFINAL REPORT TECHNIQUE: Supine radiographs of the abdomen dated 11/12/2018 HISTORY: Persistent vomiting COMPARISON: None IMPRESSION:No air-filled, dilated loops of bowel to suggest obstruction. No free intraperitoneal air. No abnormal soft tissue mass. Multiple vertebral body compression fractures are seen with kyphoplasty material. Small calcification seen in the right upper quadrant are compatible with gallstones. Signed: Gabriela Navarro Verified Date/Time: 11/12/2018 09:14:36 Reading Location: [facility] Radiology Reading Room POCT-GLUCOSE [id number] 07:59:00 Test Item Value Reference Range Comments POC-GLUCOSE METER (BEAKER) 126 mg/dL 70-[address] [facility] [address] (test ijzl=1689) [facility] [address] [id number] 05:20:00 Test Item Value Reference Range Comments MAGNESIUM (BEAKER) (test qcvr=437) 1.9 mg/dL 1.6-2.6 BASIC METABOLIC [id number] 05:20:00 Test Item Value Reference Range Comments SODIUM (BEAKER) (test 132 meq/L 136-145 avnw=272) POTASSIUM (BEAKER) (test 4.4 meq/L 3.5-5.1 mrjz=397) CHLORIDE (BEAKER) (test 108 meq/L 98-107 vbxc=602) CO2 (BEAKER) (test 20 meq/L 22-29 uhpk=573) BLOOD UREA NITROGEN 41 mg/dL 7-21 (BEAKER) (test yvvq=280) CREATININE (BEAKER) (test 1.91 mg/dL 0.57-1.25 xewi=728) GLUCOSE RANDOM (BEAKER) 127 mg/dL 70-105 (test fmrl=461) CALCIUM (BEAKER) (test 9.0 mg/dL 8.4-10.2 bise=185) EGFR (BEAKER) (test 37 mL/min/1.73 sq m ESTIMATED GFR IS NOT mnbh=9223) ACCURATE CREATININE CLEARANCE IN PREDICTING GLOMERULAR FILTRATION RATE. ESTIMATED GFR IS NOT APPLICABLE FOR DIALYSIS PATIENTS. HEPATIC FUNCTION [id number] 05:20:00 Test Item Value Reference Range Comments TOTAL PROTEIN (BEAKER) (test ktnk=256) 5.4 gm/dL 6.0-8.3 ALBUMIN (BEAKER) (test rtfs=7891) 2.7 g/dL 3.5-5.0 BILIRUBIN TOTAL (BEAKER) (test tkrv=786) 2.0 mg/dL 0.2-1.2 BILIRUBIN DIRECT (BEAKER) (test psgl=597) 1.2 mg/dL 0.1-0.5 ALKALINE PHOSPHATASE (BEAKER) (test eegu=711) 121 U/L 40-150 AST (SGOT) (BEAKER) (test ydqa=317) 18 U/L 5-34 ALT (SGPT) (BEAKER) (test xoph=393) 10 U/L 6-55 [id number] 05:05:00 Test Item Value Reference Range Comments PROTIME (BEAKER) (test bvwe=139) 20.0 seconds 11.7-14.7 INR (BEAKER) (test giba=704) 1.7 <=5.9 PARTIAL THROMBOPLASTIN TIME (BEAKER) (test 42.4 seconds 22.5-36.0 kexf=928) RECOMMENDED COUMADIN/WARFARIN INR THERAPY RANGESSTANDARD DOSE: 2.0 - 3.0 Includes: PROPHYLAXIS forvenous thrombosis, systemic embolization; TREATMENT for venous thrombosis and/or pulmonary embolus.HIGH RISK: Target INR is 2.5-3.5 for patients with mechanical heart valves.PROTHROMBIN [id number] 05:04: 00 Test Item Value Reference Range Comments PROTIME (BEAKER) (test scfz=047) 20.0 seconds 11.7-14.7 INR (BEAKER) (test piey=214) 1.7 <=5.9 RECOMMENDED COUMADIN/WARFARIN INR THERAPY RANGESSTANDARD DOSE: 2.0 - 3.0 Includes: PROPHYLAXIS forvenous thrombosis, systemic embolization; TREATMENT for venous thrombosis and/or pulmonary embolus.HIGH RISK: Target INR is 2.5-3.5 for patients with mechanical heart valves.POCT-GLUCOSE [id number] 20:49:00 Test Item Value Reference Range Comments POC-GLUCOSE METER (BEAKER) 159 mg/dL 70-110 TESTED AT [address] (test byqd=1297) [facility] [address] RAD, CHEST, 1 VIEW, NON [id number] 17:43:00Reason for exam:->evaluate for pnaShould this be [...] clavicular fracture noted and seems nonacute. Signed: Jono Xiong MDR[facility] Verified Date/Time: 11/11/2018 17: 43:24 Reading Location: [facility] B1 C013W Consult Reading Room [id number] 02:29: 00 Test Item Value Reference Range Comments PROTIME (BEAKER) (test hgyd=125) 19.1 seconds 11.7-14.7 INR (BEAKER) (test zkwj=439) 1.6 <=5.9 PARTIAL THROMBOPLASTIN TIME (BEAKER) (test 42.2 seconds 22.5-36.0 reim=032) RECOMMENDED COUMADIN/WARFARIN INR THERAPY RANGESSTANDARD DOSE: 2.0 - 3.0 Includes: PROPHYLAXIS forvenous thrombosis, systemic embolization; TREATMENT for venous thrombosis and/or pulmonary embolus.HIGH RISK: Target INR is 2.5-3.5 for patients with mechanical heart valves.[id number] 02:05:00 Test Item Value Reference Range Comments MAGNESIUM (BEAKER) (test pfnp=665) 2.2 mg/dL 1.6-2.6 BASIC METABOLIC [id number] 02:05:00 Test Item Value Reference Range Comments SODIUM (BEAKER) (test 130 meq/L 136-145 oryz=965) POTASSIUM (BEAKER) (test 4.8 meq/L 3.5-5.1 rtcu=250) CHLORIDE (BEAKER) (test 105 meq/L 98-107 lnzu=940) CO2 (BEAKER) (test 20 meq/L 22-29 dhbl=817) BLOOD UREA NITROGEN 42 mg/dL 7-21 (BEAKER) (test xclo=983) CREATININE (BEAKER) (test 1.89 mg/dL 0.57-1.25 goho=223) GLUCOSE RANDOM (BEAKER) 114 mg/dL 70-105 (test waqb=933) CALCIUM (BEAKER) (test 9.2 mg/dL 8.4-10.2 wtya=511) EGFR (BEAKER) (test 37 mL/min/1.73 sq m ESTIMATED GFR IS NOT evkg=4078) ACCURATE CREATININE CLEARANCE IN PREDICTING GLOMERULAR FILTRATION RATE. ESTIMATED GFR IS NOT APPLICABLE FOR DIALYSIS PATIENTS. Specimen slightly ictericHEPATIC FUNCTION [id number] 02:05:00 Test Item Value Reference Range Comments TOTAL PROTEIN (BEAKER) (test eqri=950) 5.5 gm/dL 6.0-8.3 ALBUMIN (BEAKER) (test lkbl=0905) 2.8 g/dL 3.5-5.0 BILIRUBIN TOTAL (BEAKER) (test cqkd=121) 2.2 mg/dL 0.2-1.2 BILIRUBIN DIRECT (BEAKER) (test ydgt=803) 1.3 mg/dL 0.1-0.5 ALKALINE PHOSPHATASE (BEAKER) (test zbxl=093) 125 U/L 40-150 AST (SGOT) (BEAKER) (test jknl=969) 18 U/L 5-34 ALT (SGPT) (BEAKER) (test lqmv=481) 10 U/L 6-55 Specimen slightly [id number] 01:56:00 Test Item Value Reference Range Comments AMMONIA (BEAKER) (test plca=739) 74 mol/L 18-72 CBC W/PLT COUNT & AUTO [id number] 01:41:00 Test Item Value Reference Range Comments WHITE BLOOD CELL COUNT (BEAKER) (test ienz=038) 4.6 K/ L 3.5-10.5 RED BLOOD CELL COUNT (BEAKER) (test bgab=416) 2.69 M/ L 4.63-6.08 HEMOGLOBIN (BEAKER) (test veoq=463) 8.7 GM/DL 13.7-17.5 HEMATOCRIT (BEAKER) (test xqni=203) 25.0 % 40.1-51.0 MEAN CORPUSCULAR VOLUME (BEAKER) (test cptp=283) 92.9 fL 79.0-92.2 MEAN CORPUSCULAR HEMOGLOBIN (BEAKER) (test 32.3 pg 25.7-32.2 evml=983) MEAN CORPUSCULAR HEMOGLOBIN CONC (BEAKER) (test 34.8 GM/DL 32.3-36.5 hixk=837) RED CELL DISTRIBUTION WIDTH (BEAKER) (test 15.0 % 11.6-14.4 nviv=616) PLATELET COUNT (BEAKER) (test zzgj=133) 63 K/CU MM 150-450 MEAN PLATELET VOLUME (BEAKER) (test xkac=028) 9.1 fL 9.4-12.4 NUCLEATED RED BLOOD CELLS (BEAKER) (test 0 /100 WBC 0-0 gpit=511) NEUTROPHILS RELATIVE PERCENT (BEAKER) (test 65 % wcxp=354) LYMPHOCYTES RELATIVE PERCENT (BEAKER) (test 15 % akjo=005) MONOCYTES RELATIVE PERCENT (BEAKER) (test 15 % lfhz=932) EOSINOPHILS RELATIVE PERCENT (BEAKER) (test 4 % shpq=878) BASOPHILS RELATIVE PERCENT (BEAKER) (test 0 % seom=383) NEUTROPHILS ABSOLUTE COUNT (BEAKER) (test 2.97 K/ L 1.78-5.38 mqkt=731) LYMPHOCYTES ABSOLUTE COUNT (BEAKER) (test 0.67 K/ L 1.32-3.57 yyks=597) MONOCYTES ABSOLUTE COUNT (BEAKER) (test lpjw=795) 0.67 K/ L 0.30-0.82 EOSINOPHILS ABSOLUTE COUNT (BEAKER) (test 0.19 K/ L 0.04-0.54 chts=684) BASOPHILS ABSOLUTE COUNT (BEAKER) (test fxmt=694) 0.01 K/ L 0.01-0.08 IMMATURE GRANULOCYTES-RELATIVE PERCENT (BEAKER) 1 % 0-1 (test zkse=6305) BODY FLUID CULTURE + GRAM [id number] 09:32:00 Test Item Value Reference Range Comments CULTURE (BEAKER) (test qbvj=1161) No growth GRAM STAIN RESULT (BEAKER) (test No WBCs ykex=0826) GRAM STAIN RESULT (BEAKER) (test No organisms seen ofnw=22364) POCT-GLUCOSE [id number] 07:52:00 Test Item Value Reference Range Comments POC-GLUCOSE METER (BEAKER) 115 mg/dL 70-[address] [facility] [address] [facility] (test zhds=3208) [facility] [address] [id number] 05:18:00 Test Item Value Reference Range Comments MAGNESIUM (BEAKER) (test qxot=948) 1.9 mg/dL 1.6-2.6 COMPREHENSIVE METABOLIC [id number] 05:18:00 Test Item Value Reference Range Comments TOTAL PROTEIN (BEAKER) 5.2 gm/dL 6.0-8.3 (test kpec=126) ALBUMIN (BEAKER) (test 3.4 g/dL 3.5-5.0 twwh=2026) ALKALINE PHOSPHATASE 113 U/L 40-150 (BEAKER) (test gpra=663) BILIRUBIN TOTAL (BEAKER) 2.9 mg/dL 0.2-1.2 (test stpk=184) SODIUM (BEAKER) (test 131 meq/L 136-145 uafv=298) POTASSIUM (BEAKER) (test 4.0 meq/L 3.5-5.1 exyy=725) CHLORIDE (BEAKER) (test 101 meq/L 98-107 bzqe=506) CO2 (BEAKER) (test 21 meq/L 22-29 ejyb=661) BLOOD UREA NITROGEN 28 mg/dL 7-21 (BEAKER) (test kyrs=998) CREATININE (BEAKER) (test 1.65 mg/dL 0.57-1.25 xadj=004) GLUCOSE RANDOM (BEAKER) 122 mg/dL 70-105 (test wawk=537) CALCIUM (BEAKER) (test 9.3 mg/dL 8.4-10.2 qiyr=198) AST (SGOT) (BEAKER) (test 15 U/L 5-34 gnrr=076) ALT (SGPT) (BEAKER) (test 8 U/L 6-55 cmwe=146) EGFR (BEAKER) (test 44 mL/min/1.73 sq m ESTIMATED GFR IS NOT wngu=0884) ACCURATE CREATININE CLEARANCE IN PREDICTING GLOMERULAR FILTRATION RATE. ESTIMATED GFR IS NOT APPLICABLE FOR DIALYSIS PATIENTS. Specimen slightly ictericPROTHROMBIN [id number] 04:48:00 Test Item Value Reference Range Comments PROTIME (BEAKER) (test fgnd=594) 20.9 seconds 11.7-14.7 INR (BEAKER) (test woko=046) 1.8 <=5.9 RECOMMENDED COUMADIN/WARFARIN INR THERAPY RANGESSTANDARD DOSE: 2.0 - 3.0 Includes: PROPHYLAXIS forvenous thrombosis, systemic embolization; TREATMENT for venous thrombosis and/or pulmonary embolus.HIGH RISK: Target INR is 2.5-3.5 for patients with mechanical heart valves.CBC W/PLT COUNT & AUTO [id number] 04:45:00 Test Item Value Reference Range Comments WHITE BLOOD CELL COUNT (BEAKER) (test ytok=731) 3.4 K/ L 3.5-10.5 RED BLOOD CELL COUNT (BEAKER) (test hxao=295) 2.55 M/ L 4.63-6.08 HEMOGLOBIN (BEAKER) (test pite=714) 8.1 GM/DL 13.7-17.5 HEMATOCRIT (BEAKER) (test gbes=936) 24.0 % 40.1-51.0 MEAN CORPUSCULAR VOLUME (BEAKER) (test tyzg=680) 94.1 fL 79.0-92.2 MEAN CORPUSCULAR HEMOGLOBIN (BEAKER) (test 31.8 pg 25.7-32.2 tagi=503) MEAN CORPUSCULAR HEMOGLOBIN CONC (BEAKER) (test 33.8 GM/DL 32.3-36.5 pzjy=623) RED CELL DISTRIBUTION WIDTH (BEAKER) (test 15.8 % 11.6-14.4 sfyl=017) PLATELET COUNT (BEAKER) (test iyhw=956) 41 K/CU MM 150-450 MEAN PLATELET VOLUME (BEAKER) (test jwad=309) 10.0 fL 9.4-12.4 NUCLEATED RED BLOOD CELLS (BEAKER) (test 0 /100 WBC 0-0 hxgs=472) NEUTROPHILS RELATIVE PERCENT (BEAKER) (test 63 % gdmh=495) LYMPHOCYTES RELATIVE PERCENT (BEAKER) (test 19 % awbn=128) MONOCYTES RELATIVE PERCENT (BEAKER) (test 16 % pxku=016) EOSINOPHILS RELATIVE PERCENT (BEAKER) (test 2 % adpx=375) BASOPHILS RELATIVE PERCENT (BEAKER) (test 0 % oxbq=771) NEUTROPHILS ABSOLUTE COUNT (BEAKER) (test 2.13 K/ L 1.78-5.38 fedv=114) LYMPHOCYTES ABSOLUTE COUNT (BEAKER) (test 0.62 K/ L 1.32-3.57 mqmw=894) MONOCYTES ABSOLUTE COUNT (BEAKER) (test thac=115) 0.52 K/ L 0.30-0.82 EOSINOPHILS ABSOLUTE COUNT (BEAKER) (test 0.08 K/ L 0.04-0.54 ldvw=548) BASOPHILS ABSOLUTE COUNT (BEAKER) (test itce=782) 0.00 K/ L 0.01-0.08 IMMATURE GRANULOCYTES-RELATIVE PERCENT (BEAKER) 0 % 0-1 (test vnev=5354) POCT-GLUCOSE [id number] 21:35:00 Test Item Value Reference Range Comments POC-GLUCOSE METER (BEAKER) 215 mg/dL 70-[address] [facility] [address] [facility] (test hebp=1796) [facility] [address] POCT-GLUCOSE [id number] 18:17:00 Test Item Value Reference Range Comments POC-GLUCOSE METER (BEAKER) 149 mg/dL 70-[address] [facility] [address] [facility] (test zldn=0779) [facility] [address] COMPREHENSIVE METABOLIC [id number] 07:34:00 Test Item Value Reference Range Comments TOTAL PROTEIN (BEAKER) 4.7 gm/dL 6.0-8.3 Specimen slightly (test jmak=853) hemolyzed ALBUMIN (BEAKER) (test 3.0 g/dL 3.5-5.0 Specimen slightly iqyy=8647) hemolyzed ALKALINE PHOSPHATASE 107 U/L 40-150 (BEAKER) (test aqot=732) BILIRUBIN TOTAL (BEAKER) 3.1 mg/dL 0.2-1.2 Specimen slightly (test aewg=740) hemolyzed SODIUM (BEAKER) (test 125 meq/L 136-145 akxa=416) POTASSIUM (BEAKER) (test 4.9 meq/L 3.5-5.1 Specimen slightly pduy=717) hemolyzed CHLORIDE (BEAKER) (test 96 meq/L 98-107 sdle=215) CO2 (BEAKER) (test 24 meq/L 22-29 bftt=208) BLOOD UREA NITROGEN 30 mg/dL 7-21 (BEAKER) (test gmni=380) CREATININE (BEAKER) (test 1.61 mg/dL 0.57-1.25 Specimen slightly csoy=482) hemolyzed GLUCOSE RANDOM (BEAKER) 127 mg/dL 70-105 (test boli=927) CALCIUM (BEAKER) (test 8.6 mg/dL 8.4-10.2 zqzn=211) AST (SGOT) (BEAKER) (test 17 U/L 5-34 Specimen slightly dweq=808) hemolyzed ALT (SGPT) (BEAKER) (test < U/L 6-55 Specimen slightly jbyu=466) hemolyzed EGFR (BEAKER) (test 45 mL/min/1.73 sq m ESTIMATED GFR IS NOT pvsn=2194) ACCURATE CREATININE CLEARANCE IN PREDICTING GLOMERULAR FILTRATION RATE. ESTIMATED GFR IS NOT APPLICABLE FOR DIALYSIS PATIENTS. Specimen slightly [id number] 06:49:00 Test Item Value Reference Range Comments PHOSPHORUS (BEAKER) (test uqxt=323) 3.0 mg/dL 2.3-4.7 [id number] 06:49:00 Test Item Value Reference Range Comments MAGNESIUM (BEAKER) (test pjkw=786) 2.0 mg/dL 1.6-2.6 PROTHROMBIN [id number] 06:39:00 Test Item Value Reference Range Comments PROTIME (BEAKER) (test terr=521) 23.0 seconds 11.7-14.7 INR (BEAKER) (test dzlu=481) 2.0 <=5.9 RECOMMENDED COUMADIN/WARFARIN INR THERAPY RANGESSTANDARD DOSE: 2.0 - 3.0 Includes: PROPHYLAXIS forvenous thrombosis, systemic embolization; TREATMENT for venous thrombosis and/or pulmonary embolus.HIGH RISK: Target INR is 2.5-3.5 for patients with mechanical heart valves.CBC W/PLT COUNT & AUTO [id number] 06:37:00 Test Item Value Reference Range Comments WHITE BLOOD CELL COUNT (BEAKER) (test lxca=214) 3.3 K/ L 3.5-10.5 RED BLOOD CELL COUNT (BEAKER) (test ylhv=321) 2.43 M/ L 4.63-6.08 HEMOGLOBIN (BEAKER) (test tbpr=576) 7.8 GM/DL 13.7-17.5 HEMATOCRIT (BEAKER) (test tqsh=649) 22.7 % 40.1-51.0 MEAN CORPUSCULAR VOLUME (BEAKER) (test knwp=351) 93.4 fL 79.0-92.2 MEAN CORPUSCULAR HEMOGLOBIN (BEAKER) (test 32.1 pg 25.7-32.2 mpkr=065) MEAN CORPUSCULAR HEMOGLOBIN CONC (BEAKER) (test 34.4 GM/DL 32.3-36.5 watx=106) RED CELL DISTRIBUTION WIDTH (BEAKER) (test 15.7 % 11.6-14.4 wzye=982) PLATELET COUNT (BEAKER) (test vxuu=157) 37 K/CU MM 150-450 MEAN PLATELET VOLUME (BEAKER) (test lndl=644) 9.6 fL 9.4-12.4 NUCLEATED RED BLOOD CELLS (BEAKER) (test 0 /100 WBC 0-0 vnbi=145) NEUTROPHILS RELATIVE PERCENT (BEAKER) (test 70 % spqy=697) LYMPHOCYTES RELATIVE PERCENT (BEAKER) (test 16 % hzjt=510) MONOCYTES RELATIVE PERCENT (BEAKER) (test 11 % nwqg=316) EOSINOPHILS RELATIVE PERCENT (BEAKER) (test 2 % xywj=450) BASOPHILS RELATIVE PERCENT (BEAKER) (test 0 % espb=544) NEUTROPHILS ABSOLUTE COUNT (BEAKER) (test 2.29 K/ L 1.78-5.38 ljnt=027) LYMPHOCYTES ABSOLUTE COUNT (BEAKER) (test 0.51 K/ L 1.32-3.57 dbrl=812) MONOCYTES ABSOLUTE COUNT (BEAKER) (test czgl=725) 0.37 K/ L 0.30-0.82 EOSINOPHILS ABSOLUTE COUNT (BEAKER) (test 0.07 K/ L 0.04-0.54 ncda=612) BASOPHILS ABSOLUTE COUNT (BEAKER) (test fsqw=351) 0.01 K/ L 0.01-0.08 IMMATURE GRANULOCYTES-RELATIVE PERCENT (BEAKER) 0 % 0-1 (test ybbg=8996) CALCIUM, [id number] 06:36:00 Test Item Value Reference Range Comments CALCIUM IONIZED (BEAKER) (test jixf=725) 1.00 mmol/L 1.12-1.27 PH, BLOOD (BEAKER) (test lryk=5837) 7.53 POCT-GLUCOSE [id number] 22:31:00 Test Item Value Reference Range Comments POC-GLUCOSE METER (BEAKER) 185 mg/dL 70-110 TESTED AT [address] (test ovfj=6084) [facility] [address] POCT-GLUCOSE [id number] 16:03:00 Test Item Value Reference Range Comments POC-GLUCOSE METER (BEAKER) 166 mg/dL 70-110 TESTED AT [address] (test dtpw=4045) [facility] [address] POCT-GLUCOSE [id number] 12:05:00 Test Item Value Reference Range Comments POC-GLUCOSE METER (BEAKER) 175 mg/dL 70-110 TESTED AT [address] (test nszn=2002) [facility] [address] POCT-GLUCOSE [id number] 08:02:00 Test Item Value Reference Range Comments POC-GLUCOSE METER (BEAKER) 162 mg/dL 70-[address] [facility] [address] (test jczp=5046) [place] [address] [id number] 03:52:00 Test Item Value Reference Range Comments MAGNESIUM (BEAKER) (test 2.1 mg/dL 1.6-2.6 Specimen slightly hemolyzed unyt=303) [id number] 03:52:00 Test Item Value Reference Range Comments PHOSPHORUS (BEAKER) (test 3.0 mg/dL 2.3-4.7 Specimen slightly hemolyzed zfgl=995) COMPREHENSIVE METABOLIC [id number] 03:52:00 Test Item Value Reference Range Comments TOTAL PROTEIN (BEAKER) 4.9 gm/dL 6.0-8.3 Specimen slightly (test hpvw=976) hemolyzed ALBUMIN (BEAKER) (test 3.2 g/dL 3.5-5.0 Specimen slightly wfym=6843) hemolyzed ALKALINE PHOSPHATASE 109 U/L 40-150 (BEAKER) (test elka=316) BILIRUBIN TOTAL (BEAKER) 2.7 mg/dL 0.2-1.2 Specimen slightly (test wsdk=486) hemolyzed SODIUM (BEAKER) (test 125 meq/L 136-145 erny=552) POTASSIUM (BEAKER) (test 4.7 meq/L 3.5-5.1 Specimen slightly gjly=543) hemolyzed CHLORIDE (BEAKER) (test 96 meq/L 98-107 wfnj=989) CO2 (BEAKER) (test 23 meq/L 22-29 vkim=260) BLOOD UREA NITROGEN 27 mg/dL 7-21 (BEAKER) (test srqw=114) CREATININE (BEAKER) (test 1.86 mg/dL 0.57-1.25 Specimen slightly wxur=238) hemolyzed GLUCOSE RANDOM (BEAKER) 164 mg/dL 70-105 (test zymy=033) CALCIUM (BEAKER) (test 8.4 mg/dL 8.4-10.2 sccx=651) AST (SGOT) (BEAKER) (test 17 U/L 5-34 Specimen slightly cyem=419) hemolyzed ALT (SGPT) (BEAKER) (test 6 U/L 6-55 Specimen slightly tmbp=027) hemolyzed EGFR (BEAKER) (test 38 mL/min/1.73 sq m ESTIMATED GFR IS NOT vraw=4079) ACCURATE CREATININE CLEARANCE IN PREDICTING GLOMERULAR FILTRATION RATE. ESTIMATED GFR IS NOT APPLICABLE FOR DIALYSIS PATIENTS. Specimen slightly ictericCALCIUM, [id number] 03:13:00 Test Item Value Reference Range Comments CALCIUM IONIZED (BEAKER) (test fase=140) 0.94 mmol/L 1.12-1.27 PH, BLOOD (BEAKER) (test piqe=0028) 7.55 PROTHROMBIN [id number] 03:10:00 Test Item Value Reference Range Comments PROTIME (BEAKER) (test fvgm=217) 22.6 seconds 11.7-14.7 INR (BEAKER) (test okkg=913) 2.0 <=5.9 RECOMMENDED COUMADIN/WARFARIN INR THERAPY RANGESSTANDARD DOSE: 2.0 - 3.0 Includes: PROPHYLAXIS forvenous thrombosis, systemic embolization; TREATMENT for venous thrombosis and/or pulmonary embolus.HIGH RISK: Target INR is 2.5-3.5 for patients with mechanical heart valves.CBC W/PLT COUNT & AUTO [id number] 03:03:00 Test Item Value Reference Range Comments WHITE BLOOD CELL COUNT (BEAKER) (test agrv=729) 3.4 K/ L 3.5-10.5 RED BLOOD CELL COUNT (BEAKER) (test ezwa=270) 2.46 M/ L 4.63-6.08 HEMOGLOBIN (BEAKER) (test xryt=574) 7.8 GM/DL 13.7-17.5 HEMATOCRIT (BEAKER) (test ytor=888) 23.5 % 40.1-51.0 MEAN CORPUSCULAR VOLUME (BEAKER) (test gimp=076) 95.5 fL 79.0-92.2 MEAN CORPUSCULAR HEMOGLOBIN (BEAKER) (test 31.7 pg 25.7-32.2 fvdc=115) MEAN CORPUSCULAR HEMOGLOBIN CONC (BEAKER) (test 33.2 GM/DL 32.3-36.5 zoic=322) RED CELL DISTRIBUTION WIDTH (BEAKER) (test 15.6 % 11.6-14.4 nnah=756) PLATELET COUNT (BEAKER) (test mxri=529) 44 K/CU MM 150-450 MEAN PLATELET VOLUME (BEAKER) (test kmmf=803) 10.6 fL 9.4-12.4 NUCLEATED RED BLOOD CELLS (BEAKER) (test 0 /100 WBC 0-0 xjvz=706) NEUTROPHILS RELATIVE PERCENT (BEAKER) (test 79 % dplb=831) LYMPHOCYTES RELATIVE PERCENT (BEAKER) (test 12 % dsvi=232) MONOCYTES RELATIVE PERCENT (BEAKER) (test 8 % drln=981) EOSINOPHILS RELATIVE PERCENT (BEAKER) (test 0 % cqey=860) BASOPHILS RELATIVE PERCENT (BEAKER) (test 0 % zjrm=457) NEUTROPHILS ABSOLUTE COUNT (BEAKER) (test 2.67 K/ L 1.78-5.38 qsrd=748) LYMPHOCYTES ABSOLUTE COUNT (BEAKER) (test 0.41 K/ L 1.32-3.57 lpqx=009) MONOCYTES ABSOLUTE COUNT (BEAKER) (test arrr=756) 0.27 K/ L 0.30-0.82 EOSINOPHILS ABSOLUTE COUNT (BEAKER) (test 0.01 K/ L 0.04-0.54 jzyg=590) BASOPHILS ABSOLUTE COUNT (BEAKER) (test ypbj=303) 0.01 K/ L 0.01-0.08 IMMATURE GRANULOCYTES-RELATIVE PERCENT (BEAKER) 0 % 0-1 (test vasi=7210) POCT-GLUCOSE [id number] 22:50:00 Test Item Value Reference Range Comments POC-GLUCOSE METER (BEAKER) 199 mg/dL 70-[address] [facility] [address] [facility] (test vbsz=2880) [facility] [address] BODY FLUID CELL COUNT WITH [id number] 21:09:00 Test Item Value Reference Range Comments APPEARANCE FLUID (BEAKER) (test mtap=636) Clear Clear COLOR FLUID (BEAKER) (test qdeb=280) Yellow Colorless, Straw RBC FLUID (BEAKER) (test lbzp=561) 140 /cu mm <=1 ADJUSTED WBC FLUID (BEAKER) (test iswi=2917) 70 /cu mm <=5 LINING CELLS (BEAKER) (test kazc=3317) 0 /cu mm <=1 NEUTROPHILS FLUID (BEAKER) (test mtrv=4677) 5 % LYMPHS FLUID (BEAKER) (test qfxy=205) 18 % MONO/MACROPHAGE FLUID (BEAKER) (test leub=627) 77 % EOSINOPHILS FLUID (BEAKER) (test cesb=879) 0 % BASO FLUID (BEAKER) (test ekgb=182) 0 % CONTAINER BODY FLUID (BEAKER) (test vvkk=7643) EDTA Tube CORTISOL,60 [id number] 20:10:00 Test Item Value Reference Range Comments CORTISOL BASELINE NETWORKED (BEAKER) (test 5.6 mcg/dL szhm=0381) CORTISOL 30 MINUTE NETWORKED (BEAKER) (test 13.7 mcg/dL okwz=1861) CORTISOL, 60 MINUTE (BEAKER) (test gbry=1407) 17.1 ug/dL ACTH STIMULATION TEST INTERPRETATION GUIDELINES(Synonyms: [...] study by Mindy et al (NEVAEH 2000,283( 8):2537-45), the ACTH Stimulation Test provides important prognostic [...] serum cortisollevel 60 minutes after cosyntropin administration.CORTISOL,30 [id number] 19:45:00 Test Item Value Reference Range Comments CORTISOL BASELINE NETWORKED (BEAKER) (test 5.6 mcg/dL eghz=5490) CORTISOL, 30 MINUTE (BEAKER) (test bhqo=6138) 13.7 ug/dL ACTH STIMULATION TEST INTERPRETATION GUIDELINES(Synonyms: [...] study by Mindy et al (NEVAEH 2000,283( 8):8028-33), the ACTH Stimulation Test provides important prognostic [...] serum cortisollevel 60 minutes after cosyntropin administration.U/S, [id number] 19:13:00Reason for exam:->therapeuticFINAL REPORT PROCEDURE: Ultrasound- guided paracentesis. INDICATION: Ascites. DESCRIPTION: After obtaining informed written consent, ultrasound scan of the abdomen identified ascites in the right lower quadrant. The overlying skin was prepped and draped in the usual, sterile fashion and local 1% lidocaine anesthesia was administered. A 5 Polish catheter was advanced into the peritoneal cavity and 6000 mL of area fluid was removed. The catheter was removed without immediate complication. Samples were sent for analysis. IMPRESSION:Uncomplicated ultrasound-guided paracentesis with 6000 mL of fluid removed. Signed: Nataly Dupree Verified Date/Time: 09/08/2018 19 :13:16 Reading Location: [facility] [id number] Ultrasound Reading Room Electronically signed by: Claudia WEAVER 09/08/2018 07:13 PMCORTISOL, [id number] 18:54:00 Test Item Value Reference Range Comments CORTISOL, BASELINE (TUNG) (test pqcv=7677) 5.6 ug/dL ACTH STIMULATION TEST INTERPRETATION GUIDELINES(Synonyms: [...] serum cortisollevel 60 minutes after cosyntropin administration.POCT-GLUCOSE [id number] 12:49:00 Test Item Value Reference Range Comments POC-GLUCOSE METER (BEAKER) 184 mg/dL 70-110 TESTED AT [address] (test xjob=2977) [facility] [address] POCT-GLUCOSE [id number] 07:56:00 Test Item Value Reference Range Comments POC-GLUCOSE METER (BEAKER) 174 mg/dL 70-110 TESTED AT [address] (test etfw=8274) [facility] [address] B-TYPE NATRIURETIC FACTOR (BNP)2018-09-08 05:20:00 Test Item Value Reference Range Comments B-TYPE NATRIURETIC PEPTIDE (BEAKER) (test 900 pg/mL 0-100 oegd=126) [id number] 05:15:00 Test Item Value Reference Range Comments PHOSPHORUS (BEAKER) (test ggdu=431) 3.2 mg/dL 2.3-4.7 [id number] 05:15:00 Test Item Value Reference Range Comments MAGNESIUM (BEAKER) (test jxde=446) 2.1 mg/dL 1.6-2.6 COMPREHENSIVE METABOLIC [id number] 05:15:00 Test Item Value Reference Range Comments TOTAL PROTEIN (BEAKER) 4.9 gm/dL 6.0-8.3 (test ulut=635) ALBUMIN (BEAKER) (test 3.2 g/dL 3.5-5.0 rtnc=0253) ALKALINE PHOSPHATASE 109 U/L 40-150 (BEAKER) (test gzmw=688) BILIRUBIN TOTAL (BEAKER) 2.7 mg/dL 0.2-1.2 (test wqwq=215) SODIUM (BEAKER) (test 128 meq/L 136-145 lpof=210) POTASSIUM (BEAKER) (test 3.9 meq/L 3.5-5.1 bwki=357) CHLORIDE (BEAKER) (test 98 meq/L 98-107 fexx=556) CO2 (BEAKER) (test 23 meq/L 22-29 vdbj=389) BLOOD UREA NITROGEN 27 mg/dL 7-21 (BEAKER) (test zhqn=119) CREATININE (BEAKER) (test 2.17 mg/dL 0.57-1.25 dvdo=972) GLUCOSE RANDOM (BEAKER) 136 mg/dL 70-105 (test wmrz=593) CALCIUM (BEAKER) (test 8.6 mg/dL 8.4-10.2 csdj=948) AST (SGOT) (BEAKER) (test 15 U/L 5-34 dctj=681) ALT (SGPT) (BEAKER) (test 7 U/L 6-55 twjf=224) EGFR (BEAKER) (test 32 mL/min/1.73 sq m ESTIMATED GFR IS NOT qfvj=9979) ACCURATE CREATININE CLEARANCE IN PREDICTING GLOMERULAR FILTRATION RATE. ESTIMATED GFR IS NOT APPLICABLE FOR DIALYSIS PATIENTS. Specimen slightly ictericPROTHROMBIN [id number] 05:01:00 Test Item Value Reference Range Comments PROTIME (BEAKER) (test aarv=843) 22.0 seconds 11.7-14.7 INR (BEAKER) (test rpsj=053) 1.9 <=5.9 RECOMMENDED COUMADIN/WARFARIN INR THERAPY RANGESSTANDARD DOSE: 2.0 - 3.0 Includes: PROPHYLAXIS forvenous thrombosis, systemic embolization; TREATMENT for venous thrombosis and/or pulmonary embolus.HIGH RISK: Target INR is 2.5-3.5 for patients with mechanical heart valves.CBC W/PLT COUNT & AUTO [id number] 04:55:00 Test Item Value Reference Range Comments WHITE BLOOD CELL COUNT (BEAKER) (test chlz=290) 4.3 K/ L 3.5-10.5 RED BLOOD CELL COUNT (BEAKER) (test mvob=935) 2.46 M/ L 4.63-6.08 HEMOGLOBIN (BEAKER) (test ysna=713) 7.9 GM/DL 13.7-17.5 HEMATOCRIT (BEAKER) (test bhsm=660) 23.3 % 40.1-51.0 MEAN CORPUSCULAR VOLUME (BEAKER) (test izws=554) 94.7 fL 79.0-92.2 MEAN CORPUSCULAR HEMOGLOBIN (BEAKER) (test 32.1 pg 25.7-32.2 gpeq=646) MEAN CORPUSCULAR HEMOGLOBIN CONC (BEAKER) (test 33.9 GM/DL 32.3-36.5 ciia=247) RED CELL DISTRIBUTION WIDTH (BEAKER) (test 15.6 % 11.6-14.4 elqx=542) PLATELET COUNT (BEAKER) (test dqme=187) 43 K/CU MM 150-450 MEAN PLATELET VOLUME (BEAKER) (test buse=330) 9.6 fL 9.4-12.4 NUCLEATED RED BLOOD CELLS (BEAKER) (test 0 /100 WBC 0-0 vxzq=185) NEUTROPHILS RELATIVE PERCENT (BEAKER) (test 63 % mblx=983) LYMPHOCYTES RELATIVE PERCENT (BEAKER) (test 13 % zqci=934) MONOCYTES RELATIVE PERCENT (BEAKER) (test 19 % meqw=172) EOSINOPHILS RELATIVE PERCENT (BEAKER) (test 5 % dyhc=426) BASOPHILS RELATIVE PERCENT (BEAKER) (test 0 % sqct=239) NEUTROPHILS ABSOLUTE COUNT (BEAKER) (test 2.72 K/ L 1.78-5.38 zsts=583) LYMPHOCYTES ABSOLUTE COUNT (BEAKER) (test 0.55 K/ L 1.32-3.57 nfan=908) MONOCYTES ABSOLUTE COUNT (BEAKER) (test dgct=882) 0.81 K/ L 0.30-0.82 EOSINOPHILS ABSOLUTE COUNT (BEAKER) (test 0.21 K/ L 0.04-0.54 qcws=088) BASOPHILS ABSOLUTE COUNT (BEAKER) (test gtwh=088) 0.01 K/ L 0.01-0.08 IMMATURE GRANULOCYTES-RELATIVE PERCENT (BEAKER) 0 % 0-1 (test hvtm=9300) POCT-GLUCOSE [id number] 23:33:00 Test Item Value Reference Range Comments POC-GLUCOSE METER (BEAKER) 156 mg/dL 70-[address] [facility] [address] [facility] (test rycs=9369) [facility] [address] POCT-GLUCOSE [id number] 18:09:00 Test Item Value Reference Range Comments POC-GLUCOSE METER (BEAKER) 170 mg/dL 70-[address] [facility] [address] [facility] (test vxpk=0525) [facility] [address] POCT-GLUCOSE [id number] 12:01:00 Test Item Value Reference Range Comments POC-GLUCOSE METER (BEAKER) 181 mg/dL 70-110 TESTED AT [address] (test urfl=9847) [facility] [address] PROTHROMBIN [id number] 08:17:00 Test Item Value Reference Range Comments PROTIME (BEAKER) (test lypj=552) 21.9 seconds 11.7-14.7 INR (BEAKER) (test vtou=722) 1.9 <=5.9 RECOMMENDED COUMADIN/WARFARIN INR THERAPY RANGESSTANDARD DOSE: 2.0 - 3.0 Includes: PROPHYLAXIS forvenous thrombosis, systemic embolization; TREATMENT for venous thrombosis and/or pulmonary embolus.HIGH RISK: Target INR is 2.5-3.5 for patients with mechanical heart valves.POCT-GLUCOSE [id number] 08:07:00 Test Item Value Reference Range Comments POC-GLUCOSE METER (BEAKER) 205 mg/dL 70-110 TESTED AT [address] (test oqws=4187) [facility] [address] COMPREHENSIVE METABOLIC [id number] 07:29:00 Test Item Value Reference Range Comments TOTAL PROTEIN (BEAKER) 4.9 gm/dL 6.0-8.3 (test dfdm=276) ALBUMIN (BEAKER) (test 3.3 g/dL 3.5-5.0 ivmt=8108) ALKALINE PHOSPHATASE 106 U/L 40-150 (BEAKER) (test lezp=908) BILIRUBIN TOTAL (BEAKER) 2.6 mg/dL 0.2-1.2 (test kxas=853) SODIUM (BEAKER) (test 129 meq/L 136-145 ndho=686) POTASSIUM (BEAKER) (test 4.9 meq/L 3.5-5.1 lolu=977) CHLORIDE (BEAKER) (test 98 meq/L 98-107 xrqj=696) CO2 (BEAKER) (test 23 meq/L 22-29 vqcp=557) BLOOD UREA NITROGEN 28 mg/dL 7-21 (BEAKER) (test wvus=616) CREATININE (BEAKER) (test 2.31 mg/dL 0.57-1.25 zifi=646) GLUCOSE RANDOM (BEAKER) 172 mg/dL 70-105 (test xquu=116) CALCIUM (BEAKER) (test 8.5 mg/dL 8.4-10.2 efqe=523) AST (SGOT) (BEAKER) (test 15 U/L 5-34 juiu=844) ALT (SGPT) (BEAKER) (test 6 U/L 6-55 esex=345) EGFR (BEAKER) (test 30 mL/min/1.73 sq m ESTIMATED GFR IS NOT wked=3476) ACCURATE CREATININE CLEARANCE IN PREDICTING GLOMERULAR FILTRATION RATE. ESTIMATED GFR IS NOT APPLICABLE FOR DIALYSIS PATIENTS. Specimen slightly ictericCBC W/PLT COUNT & AUTO [id number] 07:11 :00 Test Item Value Reference Range Comments WHITE BLOOD CELL COUNT (BEAKER) (test dkig=252) 4.5 K/ L 3.5-10.5 RED BLOOD CELL COUNT (BEAKER) (test xsxn=506) 2.47 M/ L 4.63-6.08 HEMOGLOBIN (BEAKER) (test optr=142) 7.8 GM/DL 13.7-17.5 HEMATOCRIT (BEAKER) (test dyjy=263) 23.3 % 40.1-51.0 MEAN CORPUSCULAR VOLUME (BEAKER) (test stsv=410) 94.3 fL 79.0-92.2 MEAN CORPUSCULAR HEMOGLOBIN (BEAKER) (test 31.6 pg 25.7-32.2 lbav=459) MEAN CORPUSCULAR HEMOGLOBIN CONC (BEAKER) (test 33.5 GM/DL 32.3-36.5 tika=924) RED CELL DISTRIBUTION WIDTH (BEAKER) (test 15.4 % 11.6-14.4 yiog=301) PLATELET COUNT (BEAKER) (test zlcl=158) 43 K/CU MM 150-450 MEAN PLATELET VOLUME (BEAKER) (test bbiz=841) 8.7 fL 9.4-12.4 NUCLEATED RED BLOOD CELLS (BEAKER) (test 0 /100 WBC 0-0 vfmm=303) NEUTROPHILS RELATIVE PERCENT (BEAKER) (test 64 % vhvk=095) LYMPHOCYTES RELATIVE PERCENT (BEAKER) (test 11 % gmpb=697) MONOCYTES RELATIVE PERCENT (BEAKER) (test 20 % lmxf=353) EOSINOPHILS RELATIVE PERCENT (BEAKER) (test 4 % aaux=744) BASOPHILS RELATIVE PERCENT (BEAKER) (test 0 % iixl=274) NEUTROPHILS ABSOLUTE COUNT (BEAKER) (test 2.86 K/ L 1.78-5.38 mztw=162) LYMPHOCYTES ABSOLUTE COUNT (BEAKER) (test 0.49 K/ L 1.32-3.57 ykjx=399) MONOCYTES ABSOLUTE COUNT (BEAKER) (test kdav=173) 0.90 K/ L 0.30-0.82 EOSINOPHILS ABSOLUTE COUNT (BEAKER) (test 0.18 K/ L 0.04-0.54 fouz=576) BASOPHILS ABSOLUTE COUNT (BEAKER) (test lucx=832) 0.02 K/ L 0.01-0.08 IMMATURE GRANULOCYTES-RELATIVE PERCENT (BEAKER) 0 % 0-1 (test gdfv=3762) POCT-GLUCOSE [id number] 22:31:00 Test Item Value Reference Range Comments POC-GLUCOSE METER (BEAKER) 161 mg/dL 70-110 TESTED AT [address] (test bwnp=3742) [place] [address] POCT-GLUCOSE [id number] 16:31:00 Test Item Value Reference Range Comments POC-GLUCOSE METER (BEAKER) 135 mg/dL 70-110 TESTED AT [address] (test fvxr=9784) [place] [address] POCT-GLUCOSE [id number] 12:16:00 Test Item Value Reference Range Comments POC-GLUCOSE METER (BEAKER) 144 mg/dL 70-110 TESTED AT [address] (test iirt=5659) [place] [address] POCT-GLUCOSE [id number] 07:53:00 Test Item Value Reference Range Comments POC-GLUCOSE METER (BEAKER) 93 mg/dL 70-110 TESTED AT [address] (test uzzi=1258) [place] [address] COMPREHENSIVE METABOLIC [id number] 06:55:00 Test Item Value Reference Range Comments TOTAL PROTEIN (BEAKER) 4.8 gm/dL 6.0-8.3 (test bxjp=441) ALBUMIN (BEAKER) (test 3.3 g/dL 3.5-5.0 aaaj=6143) ALKALINE PHOSPHATASE 103 U/L 40-150 (BEAKER) (test jdgp=821) BILIRUBIN TOTAL (BEAKER) 2.7 mg/dL 0.2-1.2 (test pppj=417) SODIUM (BEAKER) (test 125 meq/L 136-145 pnxr=457) POTASSIUM (BEAKER) (test 4.6 meq/L 3.5-5.1 ncgi=148) CHLORIDE (BEAKER) (test 96 meq/L 98-107 jczu=459) CO2 (BEAKER) (test 22 meq/L 22-29 lsdt=569) BLOOD UREA NITROGEN 30 mg/dL 7-21 (BEAKER) (test xgyp=767) CREATININE (BEAKER) (test 2.01 mg/dL 0.57-1.25 oolc=837) GLUCOSE RANDOM (BEAKER) 88 mg/dL 70-105 (test wvnj=677) CALCIUM (BEAKER) (test 8.5 mg/dL 8.4-10.2 ynqi=499) AST (SGOT) (BEAKER) (test 17 U/L 5-34 stgm=319) ALT (SGPT) (BEAKER) (test 7 U/L 6-55 cnpm=168) EGFR (BEAKER) (test 35 mL/min/1.73 sq m ESTIMATED GFR IS NOT wezx=8737) ACCURATE CREATININE CLEARANCE IN PREDICTING GLOMERULAR FILTRATION RATE. ESTIMATED GFR IS NOT APPLICABLE FOR DIALYSIS PATIENTS. Specimen slightly ictericPROTHROMBIN [id number] 06:10:00 Test Item Value Reference Range Comments PROTIME (BEAKER) (test pdnc=924) 23.2 seconds 11.7-14.7 INR (BEAKER) (test oyzk=640) 2.1 <=5.9 RECOMMENDED COUMADIN/WARFARIN INR THERAPY RANGESSTANDARD DOSE: 2.0 - 3.0 Includes: PROPHYLAXIS forvenous thrombosis, systemic embolization; TREATMENT for venous thrombosis and/or pulmonary embolus.HIGH RISK: Target INR is 2.5-3.5 for patients with mechanical heart valves.POCT-GLUCOSE [id number] 22:42:00 Test Item Value Reference Range Comments POC-GLUCOSE METER (BEAKER) 124 mg/dL 70-[address] [facility] [address] [facility] (test afow=6812) [facility] [address] POCT-GLUCOSE [id number] 17:04:00 Test Item Value Reference Range Comments POC-GLUCOSE METER (BEAKER) 86 mg/dL 70-[address] [facility] [address] [facility] (test fdwn=5523) [facility] [address] POCT-GLUCOSE [id number] 12:08:00 Test Item Value Reference Range Comments POC-GLUCOSE METER (BEAKER) 159 mg/dL 70-[address] [facility] [address] [facility] (test vepc=2572) [facility] [address] [id number] 08:39:00 Test Item Value Reference Range Comments PHOSPHORUS (BEAKER) (test pszu=548) 3.9 mg/dL 2.3-4.7 [id number] 08:39:00 Test Item Value Reference Range Comments MAGNESIUM (BEAKER) (test mhtd=003) 2.1 mg/dL 1.6-2.6 COMPREHENSIVE METABOLIC [id number] 08:39:00 Test Item Value Reference Range Comments TOTAL PROTEIN (BEAKER) 5.2 gm/dL 6.0-8.3 (test ubbp=206) ALBUMIN (BEAKER) (test 3.5 g/dL 3.5-5.0 xwnm=4559) ALKALINE PHOSPHATASE 110 U/L 40-150 (BEAKER) (test kvwn=647) BILIRUBIN TOTAL (BEAKER) 2.4 mg/dL 0.2-1.2 (test vsfq=665) SODIUM (BEAKER) (test 122 meq/L 136-145 jbci=725) POTASSIUM (BEAKER) (test 4.5 meq/L 3.5-5.1 nqpv=754) CHLORIDE (BEAKER) (test 94 meq/L 98-107 noco=103) CO2 (BEAKER) (test 20 meq/L 22-29 tnuq=774) BLOOD UREA NITROGEN 31 mg/dL 7-21 (BEAKER) (test jnxl=077) CREATININE (BEAKER) (test 1.94 mg/dL 0.57-1.25 apfd=705) GLUCOSE RANDOM (BEAKER) 127 mg/dL 70-105 (test hcst=459) CALCIUM (BEAKER) (test 8.6 mg/dL 8.4-10.2 ozua=737) AST (SGOT) (BEAKER) (test 17 U/L 5-34 sjfa=200) ALT (SGPT) (BEAKER) (test 8 U/L 6-55 fumg=176) EGFR (BEAKER) (test 36 mL/min/1.73 sq m ESTIMATED GFR IS NOT sauh=9556) ACCURATE CREATININE CLEARANCE IN PREDICTING GLOMERULAR FILTRATION RATE. ESTIMATED GFR IS NOT APPLICABLE FOR DIALYSIS PATIENTS. Specimen slightly ictericPOCT-GLUCOSE [id number] 07:49:00 Test Item Value Reference Range Comments POC-GLUCOSE METER (BEAKER) 132 mg/dL 70-[address] [facility] [address] [facility] (test jofd=2867) [facility] [address] CALCIUM, [id number] 06:35:00 Test Item Value Reference Range Comments CALCIUM IONIZED (BEAKER) (test jrqi=306) 1.08 mmol/L 1.12-1.27 PH, BLOOD (BEAKER) (test xsdq=1544) 7.39 CBC W/PLT COUNT & AUTO [id number] 05:56:00 Test Item Value Reference Range Comments WHITE BLOOD CELL COUNT (BEAKER) (test hvrq=935) 4.1 K/ L 3.5-10.5 RED BLOOD CELL COUNT (BEAKER) (test rjfu=706) 2.67 M/ L 4.63-6.08 HEMOGLOBIN (BEAKER) (test shcf=196) 8.3 GM/DL 13.7-17.5 HEMATOCRIT (BEAKER) (test qnvb=783) 24.7 % 40.1-51.0 MEAN CORPUSCULAR VOLUME (BEAKER) (test otkg=432) 92.5 fL 79.0-92.2 MEAN CORPUSCULAR HEMOGLOBIN (BEAKER) (test 31.1 pg 25.7-32.2 whfe=640) MEAN CORPUSCULAR HEMOGLOBIN CONC (BEAKER) (test 33.6 GM/DL 32.3-36.5 flqd=886) RED CELL DISTRIBUTION WIDTH (BEAKER) (test 15.0 % 11.6-14.4 fhhs=070) PLATELET COUNT (BEAKER) (test jqld=186) 58 K/CU MM 150-450 MEAN PLATELET VOLUME (BEAKER) (test dneo=821) 9.3 fL 9.4-12.4 NUCLEATED RED BLOOD CELLS (BEAKER) (test 0 /100 WBC 0-0 uqcu=926) NEUTROPHILS RELATIVE PERCENT (BEAKER) (test 64 % doxz=152) LYMPHOCYTES RELATIVE PERCENT (BEAKER) (test 12 % dgou=044) MONOCYTES RELATIVE PERCENT (BEAKER) (test 18 % diwp=854) EOSINOPHILS RELATIVE PERCENT (BEAKER) (test 5 % jumy=178) BASOPHILS RELATIVE PERCENT (BEAKER) (test 0 % zpyh=861) NEUTROPHILS ABSOLUTE COUNT (BEAKER) (test 2.63 K/ L 1.78-5.38 fdiw=356) LYMPHOCYTES ABSOLUTE COUNT (BEAKER) (test 0.51 K/ L 1.32-3.57 nsxz=048) MONOCYTES ABSOLUTE COUNT (BEAKER) (test vriv=692) 0.74 K/ L 0.30-0.82 EOSINOPHILS ABSOLUTE COUNT (BEAKER) (test 0.21 K/ L 0.04-0.54 fygp=259) BASOPHILS ABSOLUTE COUNT (BEAKER) (test yerw=258) 0.01 K/ L 0.01-0.08 IMMATURE GRANULOCYTES-RELATIVE PERCENT (BEAKER) 1 % 0-1 (test vyid=2931) PROTHROMBIN [id number] 05:49:00 Test Item Value Reference Range Comments PROTIME (BEAKER) (test mxvi=296) 20.4 seconds 11.7-14.7 INR (BEAKER) (test gdsm=492) 1.8 <=5.9 RECOMMENDED COUMADIN/WARFARIN INR THERAPY RANGESSTANDARD DOSE: 2.0 - 3.0 Includes: PROPHYLAXIS forvenous thrombosis, systemic embolization; TREATMENT for venous thrombosis and/or pulmonary embolus.HIGH RISK: Target INR is 2.5-3.5 for patients with mechanical heart valves.[id number] 22:31:00 Test Item Value Reference Range Comments SODIUM (BEAKER) (test esxy=872) 123 meq/L 136-145 POTASSIUM (BEAKER) (test gcxz=308) 4.5 meq/L 3.5-5.1 CHLORIDE (BEAKER) (test vrgy=477) 94 meq/L 98-107 CO2 (BEAKER) (test hbmv=909) 22 meq/L 22-29 Call results "at a decent hour" to [id number]-[id number] [id number] 21: 48:00 Test Item Value Reference Range Comments POC-GLUCOSE METER (BEAKER) 144 mg/dL 70-110 TESTED AT [address] (test opec=2228) [facility] [address] [id number] 17:27:00 Test Item Value Reference Range Comments CORTISOL, TOTAL (BEAKER) (test sgty=0452) 1.9 ug/dL 3.7-19.4 [id number] 17:03:00 Test Item Value Reference Range Comments SODIUM (BEAKER) (test cobh=305) 123 meq/L 136-145 POTASSIUM (BEAKER) (test sauy=146) 4.7 meq/L 3.5-5.1 CHLORIDE (BEAKER) (test igll=125) 95 meq/L 98-107 CO2 (BEAKER) (test qjjn=938) 21 meq/L 22-29 Call resultsPOCT-GLUCOSE [id number] 16:48:00 Test Item Value Reference Range Comments POC-GLUCOSE METER (BEAKER) 117 mg/dL 70-110 TESTED AT [address] (test pkzp=6355) [place] [address] SODIUM, RANDOM [id number] 15:12:00 Test Item Value Reference Range Comments SODIUM URINE (BEAKER) (test orlk=367) < meq/L Reference Range: No NormalsCREATININE, RANDOM [id number] 15:11:00 Test Item Value Reference Range Comments CREATININE URINE (BEAKER) (test sznt=850) 87.5 mg/dL Reference Range: No NormalsOSMOLALITY, [id number] 15:05:00 Test Item Value Reference Range Comments OSMOLALITY URINE (BEAKER) (test zhib=620) 234 mOsm/kg 40-1,400 POCT-GLUCOSE [id number] 13:14:00 Test Item Value Reference Range Comments POC-GLUCOSE METER (BEAKER) 129 mg/dL 70-110 TESTED AT [address] (test nmus=4502) [place] [id number] 10:06:00 Test Item Value Reference Range Comments SODIUM (BEAKER) (test ykla=291) 120 meq/L 136-145 POTASSIUM (BEAKER) (test wevp=712) 4.6 meq/L 3.5-5.1 CHLORIDE (BEAKER) (test mhfw=289) 93 meq/L 98-107 CO2 (BEAKER) (test jiby=880) 23 meq/L 22-29 Call [id number] 09:01:00 Test Item Value Reference Range Comments POC-GLUCOSE METER (BEAKER) 97 mg/dL 70-[address] [facility] [address] [facility] (test uozm=3109) [facility] [address] COMPREHENSIVE METABOLIC [id number] 08:40:00 Test Item Value Reference Range Comments TOTAL PROTEIN (BEAKER) 5.2 gm/dL 6.0-8.3 (test dqdm=674) ALBUMIN (BEAKER) (test 3.7 g/dL 3.5-5.0 uoxh=4703) ALKALINE PHOSPHATASE 104 U/L 40-150 (BEAKER) (test bkjd=073) BILIRUBIN TOTAL (BEAKER) 3.3 mg/dL 0.2-1.2 (test zrfk=691) SODIUM (BEAKER) (test 120 meq/L 136-145 hsiq=530) POTASSIUM (BEAKER) (test 4.8 meq/L 3.5-5.1 dsya=238) CHLORIDE (BEAKER) (test 93 meq/L 98-107 muiz=226) CO2 (BEAKER) (test 20 meq/L 22-29 ebft=126) BLOOD UREA NITROGEN 31 mg/dL 7-21 (BEAKER) (test hryl=330) CREATININE (BEAKER) (test 1.72 mg/dL 0.57-1.25 tsna=341) GLUCOSE RANDOM (BEAKER) 99 mg/dL 70-105 (test rpym=388) CALCIUM (BEAKER) (test 8.9 mg/dL 8.4-10.2 gcar=938) AST (SGOT) (BEAKER) (test 16 U/L 5-34 mncs=326) ALT (SGPT) (BEAKER) (test < U/L 6-55 yqbm=061) EGFR (BEAKER) (test 42 mL/min/1.73 sq m ESTIMATED GFR IS NOT zfsz=7781) ACCURATE CREATININE CLEARANCE IN PREDICTING GLOMERULAR FILTRATION RATE. ESTIMATED GFR IS NOT APPLICABLE FOR DIALYSIS PATIENTS. Specimen slightly [id number] 08:14:00 Test Item Value Reference Range Comments PHOSPHORUS (BEAKER) (test ryij=654) 3.8 mg/dL 2.3-4.7 [id number] 08:14:00 Test Item Value Reference Range Comments MAGNESIUM (BEAKER) (test htfd=622) 2.1 mg/dL 1.6-2.6 CALCIUM, [id number] 06:56:00 Test Item Value Reference Range Comments CALCIUM IONIZED (BEAKER) (test mtwf=347) 1.12 mmol/L 1.12-1.27 PH, BLOOD (BEAKER) (test adcw=4723) 7.36 CBC W/PLT COUNT & AUTO [id number] 06:38:00 Test Item Value Reference Range Comments WHITE BLOOD CELL COUNT (BEAKER) (test afkw=194) 4.9 K/ L 3.5-10.5 RED BLOOD CELL COUNT (BEAKER) (test rchn=213) 2.69 M/ L 4.63-6.08 HEMOGLOBIN (BEAKER) (test vuxn=156) 8.3 GM/DL 13.7-17.5 HEMATOCRIT (BEAKER) (test zeyk=412) 24.8 % 40.1-51.0 MEAN CORPUSCULAR VOLUME (BEAKER) (test yyoi=969) 92.2 fL 79.0-92.2 MEAN CORPUSCULAR HEMOGLOBIN (BEAKER) (test 30.9 pg 25.7-32.2 xhsv=915) MEAN CORPUSCULAR HEMOGLOBIN CONC (BEAKER) (test 33.5 GM/DL 32.3-36.5 ehdb=946) RED CELL DISTRIBUTION WIDTH (BEAKER) (test 14.8 % 11.6-14.4 mpfc=965) PLATELET COUNT (BEAKER) (test cnrm=415) 65 K/CU MM 150-450 MEAN PLATELET VOLUME (BEAKER) (test vbuj=868) 9.1 fL 9.4-12.4 NUCLEATED RED BLOOD CELLS (BEAKER) (test 0 /100 WBC 0-0 eike=653) NEUTROPHILS RELATIVE PERCENT (BEAKER) (test 67 % kdzw=165) LYMPHOCYTES RELATIVE PERCENT (BEAKER) (test 10 % sajh=416) MONOCYTES RELATIVE PERCENT (BEAKER) (test 17 % bsqq=741) EOSINOPHILS RELATIVE PERCENT (BEAKER) (test 5 % odvw=193) BASOPHILS RELATIVE PERCENT (BEAKER) (test 0 % mzar=562) NEUTROPHILS ABSOLUTE COUNT (BEAKER) (test 3.32 K/ L 1.78-5.38 ufxi=387) LYMPHOCYTES ABSOLUTE COUNT (BEAKER) (test 0.51 K/ L 1.32-3.57 iccx=012) MONOCYTES ABSOLUTE COUNT (BEAKER) (test tuok=276) 0.83 K/ L 0.30-0.82 EOSINOPHILS ABSOLUTE COUNT (BEAKER) (test 0.23 K/ L 0.04-0.54 crip=840) BASOPHILS ABSOLUTE COUNT (BEAKER) (test ubxm=410) 0.02 K/ L 0.01-0.08 IMMATURE GRANULOCYTES-RELATIVE PERCENT (BEAKER) 1 % 0-1 (test jiab=6546) [id number] 06:35:00 Test Item Value Reference Range Comments PARTIAL THROMBOPLASTIN TIME (BEAKER) (test 52.6 seconds 22.5-36.0 jvwt=282) PROTHROMBIN [id number] 06:34:00 Test Item Value Reference Range Comments PROTIME (BEAKER) (test tuvv=826) 21.6 seconds 11.7-14.7 INR (BEAKER) (test ddpx=183) 1.9 <=5.9 RECOMMENDED COUMADIN/WARFARIN INR THERAPY RANGESSTANDARD DOSE: 2.0 - 3.0 Includes: PROPHYLAXIS forvenous thrombosis, systemic embolization; TREATMENT for venous thrombosis and/or pulmonary embolus.HIGH RISK: Target INR is 2.5-3.5 for patients with mechanical heart valves.POCT-GLUCOSE [id number] 22:00:00 Test Item Value Reference Range Comments POC-GLUCOSE METER (BEAKER) 114 mg/dL 70-110 TESTED AT [address] (test umng=0289) [facility] [address] POCT-GLUCOSE [id number] 17:57:00 Test Item Value Reference Range Comments POC-GLUCOSE METER (BEAKER) 139 mg/dL 70-110 TESTED AT [address] (test yieg=1280) [facility] [address] POCT-GLUCOSE [id number] 11:57:00 Test Item Value Reference Range Comments POC-GLUCOSE METER (BEAKER) 146 mg/dL 70-110 TESTED AT [address] (test mjfo=6508) [facility] [address] POCT-GLUCOSE [id number] 09:16:00 Test Item Value Reference Range Comments POC-GLUCOSE METER (BEAKER) 109 mg/dL 70-110 TESTED AT [address] (test zeko=1905) [facility] [address] COMPREHENSIVE METABOLIC [id number] 05:53:00 Test Item Value Reference Range Comments TOTAL PROTEIN (BEAKER) 5.2 gm/dL 6.0-8.3 (test dfzb=171) ALBUMIN (BEAKER) (test 3.8 g/dL 3.5-5.0 jqha=6386) ALKALINE PHOSPHATASE 110 U/L 40-150 (BEAKER) (test sham=812) BILIRUBIN TOTAL (BEAKER) 4.5 mg/dL 0.2-1.2 (test koxe=830) SODIUM (BEAKER) (test 124 meq/L 136-145 wfgb=229) POTASSIUM (BEAKER) (test 4.5 meq/L 3.5-5.1 xtlu=230) CHLORIDE (BEAKER) (test 95 meq/L 98-107 gmze=391) CO2 (BEAKER) (test 22 meq/L 22-29 qbhd=693) BLOOD UREA NITROGEN 30 mg/dL 7-21 (BEAKER) (test ybtv=109) CREATININE (BEAKER) (test 1.67 mg/dL 0.57-1.25 nvps=367) GLUCOSE RANDOM (BEAKER) 99 mg/dL 70-105 (test dklw=859) CALCIUM (BEAKER) (test 9.0 mg/dL 8.4-10.2 iatq=024) AST (SGOT) (BEAKER) (test 16 U/L 5-34 qzfj=260) ALT (SGPT) (BEAKER) (test < U/L 6-55 jkoo=868) EGFR (BEAKER) (test 43 mL/min/1.73 sq m ESTIMATED GFR IS NOT cdmj=3562) ACCURATE CREATININE CLEARANCE IN PREDICTING GLOMERULAR FILTRATION RATE. ESTIMATED GFR IS NOT APPLICABLE FOR DIALYSIS PATIENTS. Specimen slightly [id number] 05:50:00 Test Item Value Reference Range Comments PHOSPHORUS (BEAKER) (test vlao=612) 3.7 mg/dL 2.3-4.7 [id number] 05:50:00 Test Item Value Reference Range Comments MAGNESIUM (BEAKER) (test tpnz=521) 2.1 mg/dL 1.6-2.6 CBC W/PLT COUNT & AUTO [id number] 05:28:00 Test Item Value Reference Range Comments WHITE BLOOD CELL COUNT (BEAKER) (test zzbo=928) 4.0 K/ L 3.5-10.5 RED BLOOD CELL COUNT (BEAKER) (test wxyq=158) 2.80 M/ L 4.63-6.08 HEMOGLOBIN (BEAKER) (test womd=861) 8.7 GM/DL 13.7-17.5 HEMATOCRIT (BEAKER) (test gjcl=581) 25.8 % 40.1-51.0 MEAN CORPUSCULAR VOLUME (BEAKER) (test xljw=449) 92.1 fL 79.0-92.2 MEAN CORPUSCULAR HEMOGLOBIN (BEAKER) (test 31.1 pg 25.7-32.2 zuus=745) MEAN CORPUSCULAR HEMOGLOBIN CONC (BEAKER) (test 33.7 GM/DL 32.3-36.5 kgis=254) RED CELL DISTRIBUTION WIDTH (BEAKER) (test 14.7 % 11.6-14.4 zhaw=159) PLATELET COUNT (BEAKER) (test vktj=820) 42 K/CU MM 150-450 MEAN PLATELET VOLUME (BEAKER) (test rzfm=116) 9.8 fL 9.4-12.4 NUCLEATED RED BLOOD CELLS (BEAKER) (test 0 /100 WBC 0-0 wdcw=288) NEUTROPHILS RELATIVE PERCENT (BEAKER) (test 59 % iblf=149) LYMPHOCYTES RELATIVE PERCENT (BEAKER) (test 15 % ingq=731) MONOCYTES RELATIVE PERCENT (BEAKER) (test 20 % acql=811) EOSINOPHILS RELATIVE PERCENT (BEAKER) (test 5 % uzhq=714) BASOPHILS RELATIVE PERCENT (BEAKER) (test 1 % kxhy=482) NEUTROPHILS ABSOLUTE COUNT (BEAKER) (test 2.37 K/ L 1.78-5.38 tzgn=149) LYMPHOCYTES ABSOLUTE COUNT (BEAKER) (test 0.58 K/ L 1.32-3.57 xarc=121) MONOCYTES ABSOLUTE COUNT (BEAKER) (test brzm=460) 0.78 K/ L 0.30-0.82 EOSINOPHILS ABSOLUTE COUNT (BEAKER) (test 0.21 K/ L 0.04-0.54 ptxk=757) BASOPHILS ABSOLUTE COUNT (BEAKER) (test psdq=391) 0.02 K/ L 0.01-0.08 IMMATURE GRANULOCYTES-RELATIVE PERCENT (BEAKER) 1 % 0-1 (test hfsc=1915) PROTHROMBIN [id number] 05:26:00 Test Item Value Reference Range Comments PROTIME (BEAKER) (test wvol=812) 23.3 seconds 11.7-14.7 INR (BEAKER) (test hybd=672) 2.1 <=5.9 RECOMMENDED COUMADIN/WARFARIN INR THERAPY RANGESSTANDARD DOSE: 2.0 - 3.0 Includes: PROPHYLAXIS forvenous thrombosis, systemic embolization; TREATMENT for venous thrombosis and/or pulmonary embolus.HIGH RISK: Target INR is 2.5-3.5 for patients with mechanical heart valves.CALCIUM, [id number] 05:21:00 Test Item Value Reference Range Comments CALCIUM IONIZED (BEAKER) (test oibi=395) 1.11 mmol/L 1.12-1.27 PH, BLOOD (BEAKER) (test qtgf=6337) 7.40 POCT-GLUCOSE [id number] 21:47:00 Test Item Value Reference Range Comments POC-GLUCOSE METER (BEAKER) 129 mg/dL 70-110 TESTED AT [address] (test soan=3389) [facility] [address] RAD, CHEST, 1 VIEW, NON [id number] 17:18:00Reason for exam:->sobFINAL REPORT Comparison: 08/26/2018 TECHNIQUE: Single view of the chest FINDINGS: Lung volumes are low. Bibasilar densities may represent atelectasis. Otherwise lungs are clear. Cardiac silhouette is within normal limits. Soft tissues and bones are unremarkable. Signed: Rick Loomis Verified Date/Time: 09/02/2018 17:18:49 Reading Location: [facility] Mammo Reading Room CBC W/ PLT COUNT & AUTO [id number] 17:16:00 Test Item Value Reference Range Comments WHITE BLOOD CELL COUNT (BEAKER) (test klmt=324) 3.8 K/ L 3.5-10.5 RED BLOOD CELL COUNT (BEAKER) (test cflc=412) 2.37 M/ L 4.63-6.08 HEMOGLOBIN (BEAKER) (test ifba=610) 7.4 GM/DL 13.7-17.5 HEMATOCRIT (BEAKER) (test uqye=613) 21.8 % 40.1-51.0 MEAN CORPUSCULAR VOLUME (BEAKER) (test yryn=601) 92.0 fL 79.0-92.2 MEAN CORPUSCULAR HEMOGLOBIN (BEAKER) (test 31.2 pg 25.7-32.2 hize=823) MEAN CORPUSCULAR HEMOGLOBIN CONC (BEAKER) (test 33.9 GM/DL 32.3-36.5 atjo=555) RED CELL DISTRIBUTION WIDTH (BEAKER) (test 14.9 % 11.6-14.4 iyle=035) PLATELET COUNT (BEAKER) (test lfnz=504) 41 K/CU MM 150-450 MEAN PLATELET VOLUME (BEAKER) (test jgdr=713) 8.8 fL 9.4-12.4 NUCLEATED RED BLOOD CELLS (BEAKER) (test 0 /100 WBC 0-0 uirc=169) NEUTROPHILS RELATIVE PERCENT (BEAKER) (test 62 % sjes=106) LYMPHOCYTES RELATIVE PERCENT (BEAKER) (test 14 % shlf=345) MONOCYTES RELATIVE PERCENT (BEAKER) (test 18 % wqqh=759) EOSINOPHILS RELATIVE PERCENT (BEAKER) (test 4 % mdcx=200) BASOPHILS RELATIVE PERCENT (BEAKER) (test 0 % msxs=130) NEUTROPHILS ABSOLUTE COUNT (BEAKER) (test 2.39 K/ L 1.78-5.38 zgbr=099) LYMPHOCYTES ABSOLUTE COUNT (BEAKER) (test 0.55 K/ L 1.32-3.57 umkh=894) MONOCYTES ABSOLUTE COUNT (BEAKER) (test rwqe=185) 0.69 K/ L 0.30-0.82 EOSINOPHILS ABSOLUTE COUNT (BEAKER) (test 0.17 K/ L 0.04-0.54 bcpt=043) BASOPHILS ABSOLUTE COUNT (BEAKER) (test byev=292) 0.01 K/ L 0.01-0.08 IMMATURE GRANULOCYTES-RELATIVE PERCENT (BEAKER) 1 % 0-1 (test oorh=6241) POCT-BLOOD GASES, [id number] 16:58:00 Test Item Value Reference Range Comments TEMP, CELSIUS-POC (BEAKER) 37.0 (test qjtx=7739) FIO2-POC (BEAKER) (test TESTED AT [address] zrrk=0607) [place] [address] PH, ARTERIAL-POC (BEAKER) 7.412 7.350-7.450 (test smju=9609) PCO2, ARTERIAL-POC (BEAKER) 35.5 mm Hg 35.0-45.0 (test mabe=1148) PO2, ARTERIAL-POC (BEAKER) 69.0 mm Hg 80.0-90.0 (test wysx=9869) SO2, ARTERIAL-POC (BEAKER) 94.0 % 96.0-97.0 (test hhma=0698) HCO3, ARTERIAL-POC (BEAKER) 22.6 meq/L 21.0-29.0 (test ygdy=6614) BASE EXCESS, ARTERIAL-POC -2.0 meq/L -2.0-3.0 (BEAKER) (test huza=4509) [id number] 16:58:00 Test Item Value Reference Range Comments POC-SODIUM (BEAKER) (test 125 meq/L 135-148 TESTED AT [address] zute=8472) [place] [address] [id number] 16:58:00 Test Item Value Reference Range Comments POC-POTASSIUM (BEAKER) (test 4.2 meq/L 3.6-5.5 TESTED AT [address] nzde=4934) [place] [address] [id number] 16:58:00 Test Item Value Reference Range Comments POC-GLUCOSE (BEAKER) (test 128 mg/dL 70-110 TESTED AT [address] sqhe=0315) [place] [address] POCT-CALCIUM [id number] 16:58:00 Test Item Value Reference Range Comments POC-CALCIUM IONIZED (BEAKER) 1.24 mmol/L 1.12-1.27 TESTED AT [address] (test eoyi=9740) [place] [address] [id number] 16:58:00 Test Item Value Reference Range Comments POC-HEMATOCRIT (BEAKER) (test 21 % 40-50 TESTED AT [address] pryw=8735) [place] [address] [id number] 16:58:00 Test Item Value Reference Range Comments POC-HEMOGLOBIN (BEAKER) 7.1 g/dL 13.0-16.8 TESTED AT [address] (test cjrr=7137) [facility] [address]CTKIJO AT [address] [address] POCT-LACTIC ACID, [id number] 16:58:00 Test Item Value Reference Range Comments POC-LACTIC ACID, ARTERIAL 1.0 mmol/L 0.4-1.3 TESTED AT [address] (BEAKER) (test pbzf=2873) [facility] [address] POCT-GLUCOSE [id number] 11:43:00 Test Item Value Reference Range Comments POC-GLUCOSE METER (BEAKER) 169 mg/dL 70-110 TESTED AT [address] (test hyrr=3358) [facility] [address] POCT-GLUCOSE [id number] 08:23:00 Test Item Value Reference Range Comments POC-GLUCOSE METER (BEAKER) 128 mg/dL 70-110 TESTED AT [address] (test xqxq=0968) [facility] [address] [id number] 05:16:00 Test Item Value Reference Range Comments PHOSPHORUS (BEAKER) (test lxmt=184) 3.8 mg/dL 2.3-4.7 [id number] 05:16:00 Test Item Value Reference Range Comments MAGNESIUM (BEAKER) (test vtxs=165) 2.0 mg/dL 1.6-2.6 COMPREHENSIVE METABOLIC [id number] 05:16:00 Test Item Value Reference Range Comments TOTAL PROTEIN (BEAKER) 5.0 gm/dL 6.0-8.3 (test tmmz=368) ALBUMIN (BEAKER) (test 3.5 g/dL 3.5-5.0 ptlc=2086) ALKALINE PHOSPHATASE 124 U/L 40-150 (BEAKER) (test nhwp=605) BILIRUBIN TOTAL (BEAKER) 2.2 mg/dL 0.2-1.2 (test fmmk=312) SODIUM (BEAKER) (test 125 meq/L 136-145 pvmx=416) POTASSIUM (BEAKER) (test 4.4 meq/L 3.5-5.1 ydgk=368) CHLORIDE (BEAKER) (test 96 meq/L 98-107 otfg=775) CO2 (BEAKER) (test 23 meq/L 22-29 aban=747) BLOOD UREA NITROGEN 27 mg/dL 7-21 (BEAKER) (test dlje=887) CREATININE (BEAKER) (test 1.74 mg/dL 0.57-1.25 exxu=212) GLUCOSE RANDOM (BEAKER) 112 mg/dL 70-105 (test yvij=025) CALCIUM (BEAKER) (test 8.8 mg/dL 8.4-10.2 cahn=151) AST (SGOT) (BEAKER) (test 17 U/L 5-34 thxl=415) ALT (SGPT) (BEAKER) (test 7 U/L 6-55 uxfv=884) EGFR (BEAKER) (test 41 mL/min/1.73 sq m ESTIMATED GFR IS NOT qqzh=8028) ACCURATE CREATININE CLEARANCE IN PREDICTING GLOMERULAR FILTRATION RATE. ESTIMATED GFR IS NOT APPLICABLE FOR DIALYSIS PATIENTS. CALCIUM, [id number] 05:13:00 Test Item Value Reference Range Comments CALCIUM IONIZED (BEAKER) (test kief=128) 1.10 mmol/L 1.12-1.27 PH, BLOOD (BEAKER) (test gmnk=1674) 7.44 CBC W/PLT COUNT & AUTO [id number] 05:02:00 Test Item Value Reference Range Comments WHITE BLOOD CELL COUNT (BEAKER) (test jbgu=424) 3.2 K/ L 3.5-10.5 RED BLOOD CELL COUNT (BEAKER) (test ufth=865) 2.23 M/ L 4.63-6.08 HEMOGLOBIN (BEAKER) (test hzcx=138) 6.9 GM/DL 13.7-17.5 HEMATOCRIT (BEAKER) (test jouc=385) 20.8 % 40.1-51.0 MEAN CORPUSCULAR VOLUME (BEAKER) (test osyz=012) 93.3 fL 79.0-92.2 MEAN CORPUSCULAR HEMOGLOBIN (BEAKER) (test 30.9 pg 25.7-32.2 oqwh=803) MEAN CORPUSCULAR HEMOGLOBIN CONC (BEAKER) (test 33.2 GM/DL 32.3-36.5 nqyk=597) RED CELL DISTRIBUTION WIDTH (BEAKER) (test 14.6 % 11.6-14.4 qwhf=701) PLATELET COUNT (BEAKER) (test mhrf=435) 43 K/CU MM 150-450 MEAN PLATELET VOLUME (BEAKER) (test znhi=513) 9.3 fL 9.4-12.4 NUCLEATED RED BLOOD CELLS (BEAKER) (test 0 /100 WBC 0-0 smfy=986) NEUTROPHILS RELATIVE PERCENT (BEAKER) (test 58 % eypg=479) LYMPHOCYTES RELATIVE PERCENT (BEAKER) (test 17 % igty=505) MONOCYTES RELATIVE PERCENT (BEAKER) (test 18 % dila=525) EOSINOPHILS RELATIVE PERCENT (BEAKER) (test 5 % beil=060) BASOPHILS RELATIVE PERCENT (BEAKER) (test 1 % soes=295) NEUTROPHILS ABSOLUTE COUNT (BEAKER) (test 1.84 K/ L 1.78-5.38 jjmw=500) LYMPHOCYTES ABSOLUTE COUNT (BEAKER) (test 0.54 K/ L 1.32-3.57 eycv=459) MONOCYTES ABSOLUTE COUNT (BEAKER) (test mupg=318) 0.56 K/ L 0.30-0.82 EOSINOPHILS ABSOLUTE COUNT (BEAKER) (test 0.15 K/ L 0.04-0.54 tifw=343) BASOPHILS ABSOLUTE COUNT (BEAKER) (test jeik=469) 0.02 K/ L 0.01-0.08 IMMATURE GRANULOCYTES-RELATIVE PERCENT (BEAKER) 1 % 0-1 (test xsed=7633) PROTHROMBIN [id number] 05:00:00 Test Item Value Reference Range Comments PROTIME (BEAKER) (test ooat=377) 22.7 seconds 11.7-14.7 INR (BEAKER) (test fdrx=116) 2.0 <=5.9 RECOMMENDED COUMADIN/WARFARIN INR THERAPY RANGESSTANDARD DOSE: 2.0 - 3.0 Includes: PROPHYLAXIS forvenous thrombosis, systemic embolization; TREATMENT for venous thrombosis and/or pulmonary embolus.HIGH RISK: Target INR is 2.5-3.5 for patients with mechanical heart valves.POCT-GLUCOSE [id number] 22:18:00 Test Item Value Reference Range Comments POC-GLUCOSE METER (BEAKER) 194 mg/dL 70-[address] [facility] [address] [facility] (test dnqu=2479) [facility] [address] POCT-GLUCOSE [id number] 17:33:00 Test Item Value Reference Range Comments POC-GLUCOSE METER (BEAKER) 160 mg/dL 70-[address] [facility] [address] [facility] (test mdsa=7070) [facility] [address] POCT-GLUCOSE [id number] 11:56:00 Test Item Value Reference Range Comments POC-GLUCOSE METER (BEAKER) 151 mg/dL 70-[address] [facility] [address] [facility] (test ctno=2119) [facility] [address] URINALYSIS W/ [id number] 09:52:00 Test Item Value Reference Range Comments COLOR (BEAKER) (test mrvp=594) Yellow CLARITY (BEAKER) (test hymm=372) Clear SPECIFIC GRAVITY UA (BEAKER) (test 1.014 1.001-1.035 blbf=886) PH UA (BEAKER) (test qtrk=523) 5.5 5.0-8.0 PROTEIN UA (BEAKER) (test wakj=748) Negative Negative GLUCOSE UA (BEAKER) (test ehnv=890) Negative Negative KETONES UA (BEAKER) (test mtju=469) Negative Negative BILIRUBIN UA (BEAKER) (test qpfs=331) Negative Negative BLOOD UA (BEAKER) (test qchh=184) Negative Negative NITRITE UA (BEAKER) (test mero=411) Negative Negative LEUKOCYTE ESTERASE UA (BEAKER) (test Negative Negative ownu=555) UROBILINOGEN UA (BEAKER) (test kwvc=862) 0.2 mg/dL 0.2-1.0 RBC UA (BEAKER) (test uhym=957) 1 /HPF WBC UA (BEAKER) (test pkjp=612) 4 /HPF BACTERIA (BEAKER) (test txhg=642) Rare MUCUS (BEAKER) (test lgys=1680) Rare HYALINE CASTS (BEAKER) (test bbxk=429) 19 /LPF YEAST (BEAKER) (test dhwt=3810) Rare SOURCE(BEAKER) (test jlpu=7317) Urine, Clean Catch SODIUM, RANDOM [id number] 09:09:00 Test Item Value Reference Range Comments SODIUM URINE (BEAKER) (test hzxi=773) < meq/L Reference Range: No NormalsCREATININE, RANDOM [id number] 09:04:00 Test Item Value Reference Range Comments CREATININE URINE (BEAKER) (test acwg=488) 149.6 mg/dL Reference Range: No NormalsPOCT-GLUCOSE [id number] 08:12:00 Test Item Value Reference Range Comments POC-GLUCOSE METER (BEAKER) 106 mg/dL 70-[address] [facility] [address] [facility] (test xcnx=6947) [facility] [address] CBC W/PLT COUNT & AUTO [id number] 06:56:00 Test Item Value Reference Range Comments WHITE BLOOD CELL COUNT (BEAKER) (test hgxe=131) 4.5 K/ L 3.5-10.5 RED BLOOD CELL COUNT (BEAKER) (test epgh=922) 2.22 M/ L 4.63-6.08 HEMOGLOBIN (BEAKER) (test sowl=241) 7.0 GM/DL 13.7-17.5 HEMATOCRIT (BEAKER) (test xqni=468) 20.6 % 40.1-51.0 MEAN CORPUSCULAR VOLUME (BEAKER) (test ywiz=258) 92.8 fL 79.0-92.2 MEAN CORPUSCULAR HEMOGLOBIN (BEAKER) (test 31.5 pg 25.7-32.2 ecde=767) MEAN CORPUSCULAR HEMOGLOBIN CONC (BEAKER) (test 34.0 GM/DL 32.3-36.5 fhqm=045) RED CELL DISTRIBUTION WIDTH (BEAKER) (test 14.7 % 11.6-14.4 xzjt=215) PLATELET COUNT (BEAKER) (test whhy=451) 44 K/CU MM 150-450 MEAN PLATELET VOLUME (BEAKER) (test gveg=394) 9.0 fL 9.4-12.4 NUCLEATED RED BLOOD CELLS (BEAKER) (test 0 /100 WBC 0-0 acyt=482) NEUTROPHILS RELATIVE PERCENT (BEAKER) (test 69 % eihk=711) LYMPHOCYTES RELATIVE PERCENT (BEAKER) (test 12 % uqah=415) MONOCYTES RELATIVE PERCENT (BEAKER) (test 14 % pthv=874) EOSINOPHILS RELATIVE PERCENT (BEAKER) (test 4 % vurz=030) BASOPHILS RELATIVE PERCENT (BEAKER) (test 0 % lweh=815) NEUTROPHILS ABSOLUTE COUNT (BEAKER) (test 3.12 K/ L 1.78-5.38 jxwm=006) LYMPHOCYTES ABSOLUTE COUNT (BEAKER) (test 0.55 K/ L 1.32-3.57 jvzm=091) MONOCYTES ABSOLUTE COUNT (BEAKER) (test qpfo=722) 0.62 K/ L 0.30-0.82 EOSINOPHILS ABSOLUTE COUNT (BEAKER) (test 0.18 K/ L 0.04-0.54 docf=356) BASOPHILS ABSOLUTE COUNT (BEAKER) (test wzac=530) 0.00 K/ L 0.01-0.08 IMMATURE GRANULOCYTES-RELATIVE PERCENT (BEAKER) 1 % 0-1 (test afrr=3738) [id number] 06:41:00 Test Item Value Reference Range Comments PHOSPHORUS (BEAKER) (test ftin=563) 2.7 mg/dL 2.3-4.7 [id number] 06:41:00 Test Item Value Reference Range Comments MAGNESIUM (BEAKER) (test molu=606) 2.0 mg/dL 1.6-2.6 COMPREHENSIVE METABOLIC [id number] 06:41:00 Test Item Value Reference Range Comments TOTAL PROTEIN (BEAKER) 4.9 gm/dL 6.0-8.3 (test hspr=851) ALBUMIN (BEAKER) (test 3.1 g/dL 3.5-5.0 grpy=5643) ALKALINE PHOSPHATASE 148 U/L 40-150 (BEAKER) (test pczf=497) BILIRUBIN TOTAL (BEAKER) 1.9 mg/dL 0.2-1.2 (test hzgi=701) SODIUM (BEAKER) (test 123 meq/L 136-145 rmeo=645) POTASSIUM (BEAKER) (test 3.9 meq/L 3.5-5.1 ibff=759) CHLORIDE (BEAKER) (test 94 meq/L 98-107 idxm=377) CO2 (BEAKER) (test 22 meq/L 22-29 bqqh=917) BLOOD UREA NITROGEN 24 mg/dL 7-21 (BEAKER) (test njyr=293) CREATININE (BEAKER) (test 1.55 mg/dL 0.57-1.25 iyfn=936) GLUCOSE RANDOM (BEAKER) 95 mg/dL 70-105 (test xuxh=403) CALCIUM (BEAKER) (test 8.5 mg/dL 8.4-10.2 ktgn=367) AST (SGOT) (BEAKER) (test 18 U/L 5-34 rgup=998) ALT (SGPT) (BEAKER) (test 10 U/L 6-55 ejam=573) EGFR (BEAKER) (test 47 mL/min/1.73 sq m ESTIMATED GFR IS NOT lvcj=2831) ACCURATE CREATININE CLEARANCE IN PREDICTING GLOMERULAR FILTRATION RATE. ESTIMATED GFR IS NOT APPLICABLE FOR DIALYSIS PATIENTS. BILIRUBIN, [id number] 06:41:00 Test Item Value Reference Range Comments BILIRUBIN DIRECT (BEAKER) (test shmw=827) 1.3 mg/dL 0.1-0.5 PROTHROMBIN [id number] 06:26:00 Test Item Value Reference Range Comments PROTIME (BEAKER) (test rfkd=242) 23.3 seconds 11.7-14.7 INR (BEAKER) (test sfrl=440) 2.1 <=5.9 RECOMMENDED COUMADIN/WARFARIN INR THERAPY RANGESSTANDARD DOSE: 2.0 - 3.0 Includes: PROPHYLAXIS forvenous thrombosis, systemic embolization; TREATMENT for venous thrombosis and/or pulmonary embolus.HIGH RISK: Target INR is 2.5-3.5 for patients with mechanical heart valves.POCT-GLUCOSE [id number] 22:17:00 Test Item Value Reference Range Comments POC-GLUCOSE METER (BEAKER) 136 mg/dL 70-[address] [facility] [address] [facility] (test omuu=9368) [facility] [address] POCT-GLUCOSE [id number] 18:08:00 Test Item Value Reference Range Comments POC-GLUCOSE METER (BEAKER) 126 mg/dL 70-110 TESTED AT [place] [id number] [facility] (test wdix=2910) [facility] [address] U/S, [id number] 17:47:00Reason for exam:->ascitesFINAL REPORT Indication: Ascites. Technique: Ultrasound guided paracentesis. Findings:Preliminary ultrasound confirms ascites. A safe window was identified in the left lower quadrant. The procedure was explained to the patient and informed consent was signed. The skin was markedand prepped in standard sterile fashion. Lidocaine was used for local anesthesia. A 5 Polish needle catheter system was advanced into the peritoneal space. 5500 cc slightly cloudy yellow fluid was taken off. Patient tolerated the procedure well. Impression: Ultrasound guided paracentesis. Signed: Jono Xiongort Verified Date/Time: 08/31/2018 17:47:54 Reading Location: [facility] [id number] Ultrasound Reading Room POCT-GLUCOSE [id number] 11:52:00 Test Item Value Reference Range Comments POC-GLUCOSE METER (BEAKER) 151 mg/dL 70-[address] [facility] [address] [facility] (test phog=7902) [facility] [address] POCT-GLUCOSE [id number] 08:19:00 Test Item Value Reference Range Comments POC-GLUCOSE METER (BEAKER) 129 mg/dL 70-110 TESTED AT [place] [id number] [facility] (test cfxc=3863) [facility] [address] [id number] 05:12:00 Test Item Value Reference Range Comments PHOSPHORUS (BEAKER) (test ivch=049) 2.9 mg/dL 2.3-4.7 [id number] 05:12:00 Test Item Value Reference Range Comments MAGNESIUM (BEAKER) (test byuc=929) 2.0 mg/dL 1.6-2.6 COMPREHENSIVE METABOLIC [id number] 05:12:00 Test Item Value Reference Range Comments TOTAL PROTEIN (BEAKER) 5.4 gm/dL 6.0-8.3 (test pyyf=189) ALBUMIN (BEAKER) (test 3.2 g/dL 3.5-5.0 jwdy=7273) ALKALINE PHOSPHATASE 159 U/L 40-150 (BEAKER) (test qrwl=808) BILIRUBIN TOTAL (BEAKER) 1.8 mg/dL 0.2-1.2 (test kimk=683) SODIUM (BEAKER) (test 125 meq/L 136-145 ycxs=795) POTASSIUM (BEAKER) (test 4.3 meq/L 3.5-5.1 kswv=144) CHLORIDE (BEAKER) (test 97 meq/L 98-107 pttg=198) CO2 (BEAKER) (test 22 meq/L 22-29 lhec=219) BLOOD UREA NITROGEN 21 mg/dL 7-21 (BEAKER) (test lduf=947) CREATININE (BEAKER) (test 1.34 mg/dL 0.57-1.25 rseq=854) GLUCOSE RANDOM (BEAKER) 113 mg/dL 70-105 (test wmzx=928) CALCIUM (BEAKER) (test 8.8 mg/dL 8.4-10.2 xwfb=645) AST (SGOT) (BEAKER) (test 22 U/L 5-34 lnyn=101) ALT (SGPT) (BEAKER) (test 11 U/L 6-55 iiny=874) EGFR (BEAKER) (test 56 mL/min/1.73 sq m ESTIMATED GFR IS NOT dhiz=6685) ACCURATE CREATININE CLEARANCE IN PREDICTING GLOMERULAR FILTRATION RATE. ESTIMATED GFR IS NOT APPLICABLE FOR DIALYSIS PATIENTS. BILIRUBIN, [id number] 05:12:00 Test Item Value Reference Range Comments BILIRUBIN DIRECT (BEAKER) (test olay=846) 1.2 mg/dL 0.1-0.5 PROTHROMBIN [id number] 04:48:00 Test Item Value Reference Range Comments PROTIME (BEAKER) (test zwaw=791) 22.3 seconds 11.7-14.7 INR (BEAKER) (test iuov=960) 2.0 <=5.9 RECOMMENDED COUMADIN/WARFARIN INR THERAPY RANGESSTANDARD DOSE: 2.0 - 3.0 Includes: PROPHYLAXIS forvenous thrombosis, systemic embolization; TREATMENT for venous thrombosis and/or pulmonary embolus.HIGH RISK: Target INR is 2.5-3.5 for patients with mechanical heart valves.CBC W/PLT COUNT & AUTO [id number] 04:33:00 Test Item Value Reference Range Comments WHITE BLOOD CELL COUNT (BEAKER) (test jwwf=738) 5.5 K/ L 3.5-10.5 RED BLOOD CELL COUNT (BEAKER) (test fuza=532) 2.58 M/ L 4.63-6.08 HEMOGLOBIN (BEAKER) (test mcfy=002) 7.9 GM/DL 13.7-17.5 HEMATOCRIT (BEAKER) (test aiyu=066) 24.3 % 40.1-51.0 MEAN CORPUSCULAR VOLUME (BEAKER) (test bjju=863) 94.2 fL 79.0-92.2 MEAN CORPUSCULAR HEMOGLOBIN (BEAKER) (test 30.6 pg 25.7-32.2 npfc=872) MEAN CORPUSCULAR HEMOGLOBIN CONC (BEAKER) (test 32.5 GM/DL 32.3-36.5 stkk=394) RED CELL DISTRIBUTION WIDTH (BEAKER) (test 15.0 % 11.6-14.4 ixys=486) PLATELET COUNT (BEAKER) (test ztbw=749) 57 K/CU MM 150-450 MEAN PLATELET VOLUME (BEAKER) (test gvcj=263) 9.2 fL 9.4-12.4 NUCLEATED RED BLOOD CELLS (BEAKER) (test 0 /100 WBC 0-0 kddv=265) NEUTROPHILS RELATIVE PERCENT (BEAKER) (test 70 % qvka=557) LYMPHOCYTES RELATIVE PERCENT (BEAKER) (test 12 % wlld=067) MONOCYTES RELATIVE PERCENT (BEAKER) (test 14 % hudw=723) EOSINOPHILS RELATIVE PERCENT (BEAKER) (test 4 % iysb=113) BASOPHILS RELATIVE PERCENT (BEAKER) (test 0 % kgii=834) NEUTROPHILS ABSOLUTE COUNT (BEAKER) (test 3.85 K/ L 1.78-5.38 bkab=078) LYMPHOCYTES ABSOLUTE COUNT (BEAKER) (test 0.67 K/ L 1.32-3.57 wsua=632) MONOCYTES ABSOLUTE COUNT (BEAKER) (test vqpf=788) 0.75 K/ L 0.30-0.82 EOSINOPHILS ABSOLUTE COUNT (BEAKER) (test 0.22 K/ L 0.04-0.54 ivzl=871) BASOPHILS ABSOLUTE COUNT (BEAKER) (test lkya=090) 0.01 K/ L 0.01-0.08 IMMATURE GRANULOCYTES-RELATIVE PERCENT (BEAKER) 1 % 0-1 (test xtup=2379) BLOOD [id number] 23:01:00 Test Item Value Reference Range Comments CULTURE (BEAKER) (test qibn=7923) No growth in 5 days POCT-GLUCOSE [id number] 22:15:00 Test Item Value Reference Range Comments POC-GLUCOSE METER (BEAKER) 133 mg/dL 70-110 TESTED AT [address] (test rxqq=2611) [facility] [address] POCT-GLUCOSE [id number] 17:42:00 Test Item Value Reference Range Comments POC-GLUCOSE METER (BEAKER) 139 mg/dL 70-110 TESTED AT [address] (test neji=5455) [facility] [address] POCT-GLUCOSE [id number] 12:02:00 Test Item Value Reference Range Comments POC-GLUCOSE METER (BEAKER) 152 mg/dL 70-110 TESTED AT [address] (test wste=3376) [facility] [address] POCT-GLUCOSE [id number] 09:04:00 Test Item Value Reference Range Comments POC-GLUCOSE METER (BEAKER) 130 mg/dL 70-[address] [facility] [address] [facility] (test fegi=9044) [facility] [address] CALCIUM, [id number] 07:27:00 Test Item Value Reference Range Comments CALCIUM IONIZED (BEAKER) (test hrez=422) 1.10 mmol/L 1.12-1.27 PH, BLOOD (BEAKER) (test ftfn=2626) 7.42 [id number] 06:46:00 Test Item Value Reference Range Comments PHOSPHORUS (BEAKER) (test dvoc=023) 3.0 mg/dL 2.3-4.7 [id number] 06:46:00 Test Item Value Reference Range Comments MAGNESIUM (BEAKER) (test mqtq=288) 2.0 mg/dL 1.6-2.6 COMPREHENSIVE METABOLIC [id number] 06:46:00 Test Item Value Reference Range Comments TOTAL PROTEIN (BEAKER) 4.9 gm/dL 6.0-8.3 (test vwsb=490) ALBUMIN (BEAKER) (test 3.0 g/dL 3.5-5.0 mqhe=7341) ALKALINE PHOSPHATASE 145 U/L 40-150 (BEAKER) (test fonv=151) BILIRUBIN TOTAL (BEAKER) 1.9 mg/dL 0.2-1.2 (test zzsp=967) SODIUM (BEAKER) (test 127 meq/L 136-145 tsoz=293) POTASSIUM (BEAKER) (test 3.7 meq/L 3.5-5.1 uvit=957) CHLORIDE (BEAKER) (test 99 meq/L 98-107 bdkb=464) CO2 (BEAKER) (test 21 meq/L 22-29 yweb=739) BLOOD UREA NITROGEN 20 mg/dL 7-21 (BEAKER) (test udwv=314) CREATININE (BEAKER) (test 1.21 mg/dL 0.57-1.25 efjr=500) GLUCOSE RANDOM (BEAKER) 108 mg/dL 70-105 (test pqun=059) CALCIUM (BEAKER) (test 8.9 mg/dL 8.4-10.2 doxl=689) AST (SGOT) (BEAKER) (test 22 U/L 5-34 japl=261) ALT (SGPT) (BEAKER) (test 9 U/L 6-55 fgkm=842) EGFR (BEAKER) (test 63 mL/min/1.73 sq m ESTIMATED GFR IS NOT mzwo=5408) ACCURATE CREATININE CLEARANCE IN PREDICTING GLOMERULAR FILTRATION RATE. ESTIMATED GFR IS NOT APPLICABLE FOR DIALYSIS PATIENTS. BASIC METABOLIC [id number] 06:46:00 Test Item Value Reference Range Comments SODIUM (BEAKER) (test 127 meq/L 136-145 cmii=387) POTASSIUM (BEAKER) (test 3.7 meq/L 3.5-5.1 musr=047) CHLORIDE (BEAKER) (test 99 meq/L 98-107 mewp=264) CO2 (BEAKER) (test 21 meq/L 22-29 rjwo=553) BLOOD UREA NITROGEN 20 mg/dL 7-21 (BEAKER) (test ekds=071) CREATININE (BEAKER) (test 1.21 mg/dL 0.57-1.25 buge=001) GLUCOSE RANDOM (BEAKER) 108 mg/dL 70-105 (test kxzw=660) CALCIUM (BEAKER) (test 8.9 mg/dL 8.4-10.2 xcyx=771) EGFR (BEAKER) (test 63 mL/min/1.73 sq m ESTIMATED GFR IS NOT fgcg=8197) ACCURATE CREATININE CLEARANCE IN PREDICTING GLOMERULAR FILTRATION RATE. ESTIMATED GFR IS NOT APPLICABLE FOR DIALYSIS PATIENTS. BILIRUBIN, [id number] 06:46:00 Test Item Value Reference Range Comments BILIRUBIN DIRECT (BEAKER) (test zrxa=713) 1.2 mg/dL 0.1-0.5 CBC W/PLT COUNT & AUTO [id number] 06:30:00 Test Item Value Reference Range Comments WHITE BLOOD CELL COUNT (BEAKER) (test ripm=496) 3.7 K/ L 3.5-10.5 RED BLOOD CELL COUNT (BEAKER) (test tsml=487) 2.35 M/ L 4.63-6.08 HEMOGLOBIN (BEAKER) (test tbol=274) 7.4 GM/DL 13.7-17.5 HEMATOCRIT (BEAKER) (test qkvv=274) 22.1 % 40.1-51.0 MEAN CORPUSCULAR VOLUME (BEAKER) (test bqod=632) 94.0 fL 79.0-92.2 MEAN CORPUSCULAR HEMOGLOBIN (BEAKER) (test 31.5 pg 25.7-32.2 ziqe=108) MEAN CORPUSCULAR HEMOGLOBIN CONC (BEAKER) (test 33.5 GM/DL 32.3-36.5 agof=572) RED CELL DISTRIBUTION WIDTH (BEAKER) (test 14.8 % 11.6-14.4 hcnh=894) PLATELET COUNT (BEAKER) (test kovp=768) 45 K/CU MM 150-450 MEAN PLATELET VOLUME (BEAKER) (test jgpk=860) 8.8 fL 9.4-12.4 NUCLEATED RED BLOOD CELLS (BEAKER) (test 0 /100 WBC 0-0 rfuk=584) NEUTROPHILS RELATIVE PERCENT (BEAKER) (test 61 % cpjp=406) LYMPHOCYTES RELATIVE PERCENT (BEAKER) (test 14 % yqdx=900) MONOCYTES RELATIVE PERCENT (BEAKER) (test 18 % ioeh=032) EOSINOPHILS RELATIVE PERCENT (BEAKER) (test 6 % ffum=689) BASOPHILS RELATIVE PERCENT (BEAKER) (test 0 % lxjx=562) NEUTROPHILS ABSOLUTE COUNT (BEAKER) (test 2.25 K/ L 1.78-5.38 lbtd=352) LYMPHOCYTES ABSOLUTE COUNT (BEAKER) (test 0.53 K/ L 1.32-3.57 sccj=722) MONOCYTES ABSOLUTE COUNT (BEAKER) (test xpcv=737) 0.67 K/ L 0.30-0.82 EOSINOPHILS ABSOLUTE COUNT (BEAKER) (test 0.23 K/ L 0.04-0.54 dxto=661) BASOPHILS ABSOLUTE COUNT (BEAKER) (test ffey=867) 0.01 K/ L 0.01-0.08 IMMATURE GRANULOCYTES-RELATIVE PERCENT (BEAKER) 1 % 0-1 (test kxpc=0891) PROTHROMBIN [id number] 06:07:00 Test Item Value Reference Range Comments PROTIME (BEAKER) (test wysi=978) 21.4 seconds 11.7-14.7 INR (BEAKER) (test zppu=879) 1.9 <=5.9 RECOMMENDED COUMADIN/WARFARIN INR THERAPY RANGESSTANDARD DOSE: 2.0 - 3.0 Includes: PROPHYLAXIS forvenous thrombosis, systemic embolization; TREATMENT for venous thrombosis and/or pulmonary embolus.HIGH RISK: Target INR is 2.5-3.5 for patients with mechanical heart valves.POCT-GLUCOSE [id number] 23:37:00 Test Item Value Reference Range Comments POC-GLUCOSE METER (BEAKER) 154 mg/dL 70-110 TESTED AT [address] (test mwqk=7945) [place] [address] BASIC METABOLIC [id number] 20:17:00 Test Item Value Reference Range Comments SODIUM (BEAKER) (test 125 meq/L 136-145 uibk=478) POTASSIUM (BEAKER) (test 4.0 meq/L 3.5-5.1 tvjb=644) CHLORIDE (BEAKER) (test 94 meq/L 98-107 klrv=240) CO2 (BEAKER) (test 25 meq/L 22-29 xoip=123) BLOOD UREA NITROGEN 20 mg/dL 7-21 (BEAKER) (test yrhq=613) CREATININE (BEAKER) (test 1.34 mg/dL 0.57-1.25 znuc=312) GLUCOSE RANDOM (BEAKER) 115 mg/dL 70-105 (test ilvj=789) CALCIUM (BEAKER) (test 8.9 mg/dL 8.4-10.2 veav=820) EGFR (BEAKER) (test 56 mL/min/1.73 sq m ESTIMATED GFR IS NOT xvwh=9406) ACCURATE CREATININE CLEARANCE IN PREDICTING GLOMERULAR FILTRATION RATE. ESTIMATED GFR IS NOT APPLICABLE FOR DIALYSIS PATIENTS. POCT-GLUCOSE [id number] 17:59:00 Test Item Value Reference Range Comments POC-GLUCOSE METER (BEAKER) 161 mg/dL 70-110 TESTED AT [address] (test bzbb=7462) [place] [address] BODY FLUID CULTURE + GRAM [id number] 13:31:00 Test Item Value Reference Range Comments CULTURE (BEAKER) (test fagk=6800) No growth GRAM STAIN RESULT (BEAKER) (test No organisms seen wuku=6418) GRAM STAIN RESULT (BEAKER) (test No White blood cells seen iorj=78199) POCT-GLUCOSE [id number] 12:31:00 Test Item Value Reference Range Comments POC-GLUCOSE METER (BEAKER) 114 mg/dL 70-110 TESTED AT [address] (test yscw=4210) [place] [address] BASIC METABOLIC [id number] 11:33:00 Test Item Value Reference Range Comments SODIUM (BEAKER) (test 124 meq/L 136-145 femz=573) POTASSIUM (BEAKER) (test 4.1 meq/L 3.5-5.1 nlia=470) CHLORIDE (BEAKER) (test 94 meq/L 98-107 zadu=319) CO2 (BEAKER) (test 23 meq/L 22-29 twji=178) BLOOD UREA NITROGEN 20 mg/dL 7-21 (BEAKER) (test jbqh=899) CREATININE (BEAKER) (test 1.22 mg/dL 0.57-1.25 ewgu=344) GLUCOSE RANDOM (BEAKER) 94 mg/dL 70-105 (test mbqz=405) CALCIUM (BEAKER) (test 8.8 mg/dL 8.4-10.2 flyf=657) EGFR (BEAKER) (test 62 mL/min/1.73 sq m ESTIMATED GFR IS NOT xvcm=5947) ACCURATE CREATININE CLEARANCE IN PREDICTING GLOMERULAR FILTRATION RATE. ESTIMATED GFR IS NOT APPLICABLE FOR DIALYSIS PATIENTS. [id number] 09:24:00 Test Item Value Reference Range Comments FERRITIN (BEAKER) (test escb=633) 1685 ng/mL 5-275 POCT-GLUCOSE [id number] 07:59:00 Test Item Value Reference Range Comments POC-GLUCOSE METER (BEAKER) 225 mg/dL 70-[address] [facility] [address] [facility] (test tkbf=6780) [facility] [address] IRON, TIBC, % SAT. (WITHOUT FERRITIN)2018-08-29 07:54:00 Test Item Value Reference Range Comments IRON (BEAKER) (test qlob=378) 98 ug/dL 40-160 TOTAL IRON BINDING CAPACITY (BEAKER) (test 90 ug/dL 250-450 fdsl=981) IRON % SATURATION (2) (BEAKER) (test nfji=7586) 109 % 20-55 CALCIUM, [id number] 07:13:00 Test Item Value Reference Range Comments CALCIUM IONIZED (BEAKER) (test vkdg=403) 1.10 mmol/L 1.12-1.27 PH, BLOOD (BEAKER) (test umok=1421) 7.37 [id number] 06:32:00 Test Item Value Reference Range Comments PHOSPHORUS (BEAKER) (test qmbu=367) 2.6 mg/dL 2.3-4.7 [id number] 06:32:00 Test Item Value Reference Range Comments MAGNESIUM (BEAKER) (test fywx=116) 1.8 mg/dL 1.6-2.6 COMPREHENSIVE METABOLIC [id number] 06:32:00 Test Item Value Reference Range Comments TOTAL PROTEIN (BEAKER) 5.0 gm/dL 6.0-8.3 (test pttt=392) ALBUMIN (BEAKER) (test 3.2 g/dL 3.5-5.0 eygk=5583) ALKALINE PHOSPHATASE 138 U/L 40-150 (BEAKER) (test mckq=518) BILIRUBIN TOTAL (BEAKER) 2.1 mg/dL 0.2-1.2 (test edcj=467) SODIUM (BEAKER) (test 126 meq/L 136-145 hfzg=493) POTASSIUM (BEAKER) (test 4.0 meq/L 3.5-5.1 yugp=618) CHLORIDE (BEAKER) (test 95 meq/L 98-107 gbne=298) CO2 (BEAKER) (test 23 meq/L 22-29 bbix=077) BLOOD UREA NITROGEN 21 mg/dL 7-21 (BEAKER) (test rviz=774) CREATININE (BEAKER) (test 1.15 mg/dL 0.57-1.25 vqcl=679) GLUCOSE RANDOM (BEAKER) 110 mg/dL 70-105 (test qyiv=665) CALCIUM (BEAKER) (test 8.8 mg/dL 8.4-10.2 dkiy=324) AST (SGOT) (BEAKER) (test 22 U/L 5-34 lyri=957) ALT (SGPT) (BEAKER) (test 11 U/L 6-55 seqt=210) EGFR (BEAKER) (test 67 mL/min/1.73 sq m ESTIMATED GFR IS NOT bxhf=1319) ACCURATE CREATININE CLEARANCE IN PREDICTING GLOMERULAR FILTRATION RATE. ESTIMATED GFR IS NOT APPLICABLE FOR DIALYSIS PATIENTS. BASIC METABOLIC [id number] 06:32:00 Test Item Value Reference Range Comments SODIUM (BEAKER) (test 126 meq/L 136-145 prpb=971) POTASSIUM (BEAKER) (test 4.0 meq/L 3.5-5.1 xkhb=786) CHLORIDE (BEAKER) (test 95 meq/L 98-107 cvcl=851) CO2 (BEAKER) (test 23 meq/L 22-29 dwuk=817) BLOOD UREA NITROGEN 21 mg/dL 7-21 (BEAKER) (test wcom=687) CREATININE (BEAKER) (test 1.15 mg/dL 0.57-1.25 cdlh=882) GLUCOSE RANDOM (BEAKER) 110 mg/dL 70-105 (test inyd=229) CALCIUM (BEAKER) (test 8.8 mg/dL 8.4-10.2 sfml=154) EGFR (BEAKER) (test 67 mL/min/1.73 sq m ESTIMATED GFR IS NOT sjyi=6163) ACCURATE CREATININE CLEARANCE IN PREDICTING GLOMERULAR FILTRATION RATE. ESTIMATED GFR IS NOT APPLICABLE FOR DIALYSIS PATIENTS. BILIRUBIN, [id number] 06:32:00 Test Item Value Reference Range Comments BILIRUBIN DIRECT (BEAKER) (test dulq=376) 1.4 mg/dL 0.1-0.5 PROTHROMBIN [id number] 05:44:00 Test Item Value Reference Range Comments PROTIME (BEAKER) (test hutg=362) 20.9 seconds 11.7-14.7 INR (BEAKER) (test bxsm=916) 1.8 <=5.9 RECOMMENDED COUMADIN/WARFARIN INR THERAPY RANGESSTANDARD DOSE: 2.0 - 3.0 Includes: PROPHYLAXIS forvenous thrombosis, systemic embolization; TREATMENT for venous thrombosis and/or pulmonary embolus.HIGH RISK: Target INR is 2.5-3.5 for patients with mechanical heart valves.CBC W/PLT COUNT & AUTO [id number] 05:43:00 Test Item Value Reference Range Comments WHITE BLOOD CELL COUNT (BEAKER) (test hwhl=927) 4.0 K/ L 3.5-10.5 RED BLOOD CELL COUNT (BEAKER) (test iqoy=517) 2.30 M/ L 4.63-6.08 HEMOGLOBIN (BEAKER) (test cgta=696) 7.5 GM/DL 13.7-17.5 HEMATOCRIT (BEAKER) (test vuwr=499) 22.0 % 40.1-51.0 MEAN CORPUSCULAR VOLUME (BEAKER) (test mfow=898) 95.7 fL 79.0-92.2 MEAN CORPUSCULAR HEMOGLOBIN (BEAKER) (test 32.6 pg 25.7-32.2 bxcd=370) MEAN CORPUSCULAR HEMOGLOBIN CONC (BEAKER) (test 34.1 GM/DL 32.3-36.5 iiog=661) RED CELL DISTRIBUTION WIDTH (BEAKER) (test 14.8 % 11.6-14.4 uvep=314) PLATELET COUNT (BEAKER) (test tydi=291) 51 K/CU MM 150-450 MEAN PLATELET VOLUME (BEAKER) (test ftnp=620) 8.8 fL 9.4-12.4 NUCLEATED RED BLOOD CELLS (BEAKER) (test 0 /100 WBC 0-0 lnlu=072) NEUTROPHILS RELATIVE PERCENT (BEAKER) (test 61 % wvok=559) LYMPHOCYTES RELATIVE PERCENT (BEAKER) (test 12 % kkjr=243) MONOCYTES RELATIVE PERCENT (BEAKER) (test 19 % grnm=982) EOSINOPHILS RELATIVE PERCENT (BEAKER) (test 7 % hlca=523) BASOPHILS RELATIVE PERCENT (BEAKER) (test 0 % pcjb=871) NEUTROPHILS ABSOLUTE COUNT (BEAKER) (test 2.43 K/ L 1.78-5.38 wpyk=532) LYMPHOCYTES ABSOLUTE COUNT (BEAKER) (test 0.49 K/ L 1.32-3.57 fomk=500) MONOCYTES ABSOLUTE COUNT (BEAKER) (test obrg=591) 0.75 K/ L 0.30-0.82 EOSINOPHILS ABSOLUTE COUNT (BEAKER) (test 0.29 K/ L 0.04-0.54 qzyp=228) BASOPHILS ABSOLUTE COUNT (BEAKER) (test rhql=194) 0.00 K/ L 0.01-0.08 IMMATURE GRANULOCYTES-RELATIVE PERCENT (BEAKER) 1 % 0-1 (test mcjo=7406) POCT-GLUCOSE [id number] 22:23:00 Test Item Value Reference Range Comments POC-GLUCOSE METER (BEAKER) 166 mg/dL 70-110 TESTED AT [address] (test nkyt=8930) [place] [id number] POCT-GLUCOSE [id number] 16:12:00 Test Item Value Reference Range Comments POC-GLUCOSE METER (BEAKER) 110 mg/dL 70-110 TESTED AT [address] (test hdez=4250) [place] [id number] PTH, [id number] 15:57:00 Test Item Value Reference Range Comments PARATHYROID HORMONE INTACT (BEAKER) (test 26.2 pg/mL 8.5-72.5 ujfj=284) GAMMA GLUTAMYL TRANSFERASE (GGT)[id number] 15:51:00 Test Item Value Reference Range Comments GAMMA GLUTAMYL TRANSFERASE (BEAKER) (test xqxb=282) 11 U/L 9-64 BASIC METABOLIC [id number] 15:49:00 Test Item Value Reference Range Comments SODIUM (BEAKER) (test 127 meq/L 136-145 fshb=370) POTASSIUM (BEAKER) (test 3.6 meq/L 3.5-5.1 mgzg=801) CHLORIDE (BEAKER) (test 97 meq/L 98-107 ctpf=716) CO2 (BEAKER) (test 23 meq/L 22-29 gowj=648) BLOOD UREA NITROGEN 20 mg/dL 7-21 (BEAKER) (test zmic=181) CREATININE (BEAKER) (test 1.19 mg/dL 0.57-1.25 nnaa=162) GLUCOSE RANDOM (BEAKER) 123 mg/dL 70-105 (test bfii=081) CALCIUM (BEAKER) (test 8.6 mg/dL 8.4-10.2 qved=497) EGFR (BEAKER) (test 64 mL/min/1.73 sq m ESTIMATED GFR IS NOT ojkj=8648) ACCURATE CREATININE CLEARANCE IN PREDICTING GLOMERULAR FILTRATION RATE. ESTIMATED GFR IS NOT APPLICABLE FOR DIALYSIS PATIENTS. VITAMIN D, [id number] 15:24:00 Test Item Value Reference Range Comments VITAMIN D 25-OH (BEAKER) (test vtyw=7138) 11.2 ng/mL 6.6-49.9 Effective 08/06/2017: Reference Range ChangeNew: 6.6-49.9 ng/mL Previous: 13.0 -47.8 ng/mLRecommended Vitamin D Target Range: 30.0-40.0 ng/mLPOCT-GLUCOSE [id number] 12:35:00 Test Item Value Reference Range Comments POC-GLUCOSE METER (BEAKER) 138 mg/dL 70-[address] [facility] [address] [facility] (test cgpu=6162) [facility] [address] BASIC METABOLIC [id number] 09:59:00 Test Item Value Reference Range Comments SODIUM (BEAKER) (test 130 meq/L 136-145 gaaz=078) POTASSIUM (BEAKER) (test 4.1 meq/L 3.5-5.1 hxyh=091) CHLORIDE (BEAKER) (test 99 meq/L 98-107 wdjg=554) CO2 (BEAKER) (test 24 meq/L 22-29 tgbx=118) BLOOD UREA NITROGEN 22 mg/dL 7-21 (BEAKER) (test wzpd=844) CREATININE (BEAKER) (test 1.31 mg/dL 0.57-1.25 hwjh=388) GLUCOSE RANDOM (BEAKER) 121 mg/dL 70-105 (test jmth=815) CALCIUM (BEAKER) (test 9.4 mg/dL 8.4-10.2 ziuk=839) EGFR (BEAKER) (test 57 mL/min/1.73 sq m ESTIMATED GFR IS NOT muzu=0893) ACCURATE CREATININE CLEARANCE IN PREDICTING GLOMERULAR FILTRATION RATE. ESTIMATED GFR IS NOT APPLICABLE FOR DIALYSIS PATIENTS. POCT-GLUCOSE [id number] 08:17:00 Test Item Value Reference Range Comments POC-GLUCOSE METER (BEAKER) 131 mg/dL 70-[address] [facility] [address] [facility] (test jktz=2137) [facility] [address] CALCIUM, [id number] 06:01:00 Test Item Value Reference Range Comments CALCIUM IONIZED (BEAKER) (test rbdf=541) 1.06 mmol/L 1.12-1.27 PH, BLOOD (BEAKER) (test lvjs=3993) 7.42 [id number] 05:52:00 Test Item Value Reference Range Comments PHOSPHORUS (BEAKER) (test ecna=608) 3.1 mg/dL 2.3-4.7 [id number] 05:52:00 Test Item Value Reference Range Comments MAGNESIUM (BEAKER) (test hous=947) 2.3 mg/dL 1.6-2.6 BASIC METABOLIC [id number] 05:52:00 Test Item Value Reference Range Comments SODIUM (BEAKER) (test 130 meq/L 136-145 hxnp=055) POTASSIUM (BEAKER) (test 3.8 meq/L 3.5-5.1 ejbm=085) CHLORIDE (BEAKER) (test 98 meq/L 98-107 pfem=717) CO2 (BEAKER) (test 22 meq/L 22-29 ifef=291) BLOOD UREA NITROGEN 22 mg/dL 7-21 (BEAKER) (test budb=514) CREATININE (BEAKER) (test 1.37 mg/dL 0.57-1.25 huin=581) GLUCOSE RANDOM (BEAKER) 118 mg/dL 70-105 (test iddv=976) CALCIUM (BEAKER) (test 9.6 mg/dL 8.4-10.2 uedo=849) EGFR (BEAKER) (test 54 mL/min/1.73 sq m ESTIMATED GFR IS NOT brey=6797) ACCURATE CREATININE CLEARANCE IN PREDICTING GLOMERULAR FILTRATION RATE. ESTIMATED GFR IS NOT APPLICABLE FOR DIALYSIS PATIENTS. Specimen slightly ictericCOMPREHENSIVE METABOLIC [id number] 05:52:00 Test Item Value Reference Range Comments TOTAL PROTEIN (BEAKER) 5.6 gm/dL 6.0-8.3 (test nheg=762) ALBUMIN (BEAKER) (test 3.6 g/dL 3.5-5.0 qdnj=6516) ALKALINE PHOSPHATASE 146 U/L 40-150 (BEAKER) (test tafp=109) BILIRUBIN TOTAL (BEAKER) 2.5 mg/dL 0.2-1.2 (test rzum=586) SODIUM (BEAKER) (test 130 meq/L 136-145 wliy=259) POTASSIUM (BEAKER) (test 3.8 meq/L 3.5-5.1 qtjz=368) CHLORIDE (BEAKER) (test 98 meq/L 98-107 zzun=959) CO2 (BEAKER) (test 22 meq/L 22-29 kbky=267) BLOOD UREA NITROGEN 22 mg/dL 7-21 (BEAKER) (test njio=044) CREATININE (BEAKER) (test 1.37 mg/dL 0.57-1.25 sstw=808) GLUCOSE RANDOM (BEAKER) 118 mg/dL 70-105 (test dvcj=472) CALCIUM (BEAKER) (test 9.6 mg/dL 8.4-10.2 iehk=585) AST (SGOT) (BEAKER) (test 25 U/L 5-34 lwtv=614) ALT (SGPT) (BEAKER) (test 10 U/L 6-55 owuf=035) EGFR (BEAKER) (test 54 mL/min/1.73 sq m ESTIMATED GFR IS NOT cdhz=6401) ACCURATE CREATININE CLEARANCE IN PREDICTING GLOMERULAR FILTRATION RATE. ESTIMATED GFR IS NOT APPLICABLE FOR DIALYSIS PATIENTS. Specimen slightly ictericBILIRUBIN, [id number] 05:52:00 Test Item Value Reference Range Comments BILIRUBIN DIRECT (BEAKER) (test mdhh=237) 1.6 mg/dL 0.1-0.5 PROTHROMBIN [id number] 05:41:00 Test Item Value Reference Range Comments PROTIME (BEAKER) (test nimh=292) 21.3 seconds 11.7-14.7 INR (BEAKER) (test tfyi=261) 1.8 <=5.9 RECOMMENDED COUMADIN/WARFARIN INR THERAPY RANGESSTANDARD DOSE: 2.0 - 3.0 Includes: PROPHYLAXIS forvenous thrombosis, systemic embolization; TREATMENT for venous thrombosis and/or pulmonary embolus.HIGH RISK: Target INR is 2.5-3.5 for patients with mechanical heart valves.CBC W/PLT COUNT & AUTO [id number] 05:32:00 Test Item Value Reference Range Comments WHITE BLOOD CELL COUNT (BEAKER) (test rqsh=226) 5.0 K/ L 3.5-10.5 RED BLOOD CELL COUNT (BEAKER) (test qpge=937) 2.53 M/ L 4.63-6.08 HEMOGLOBIN (BEAKER) (test qjkc=912) 8.1 GM/DL 13.7-17.5 HEMATOCRIT (BEAKER) (test ngja=279) 23.6 % 40.1-51.0 MEAN CORPUSCULAR VOLUME (BEAKER) (test qykm=111) 93.3 fL 79.0-92.2 MEAN CORPUSCULAR HEMOGLOBIN (BEAKER) (test 32.0 pg 25.7-32.2 nuey=529) MEAN CORPUSCULAR HEMOGLOBIN CONC (BEAKER) (test 34.3 GM/DL 32.3-36.5 rmas=520) RED CELL DISTRIBUTION WIDTH (BEAKER) (test 14.6 % 11.6-14.4 ajqi=798) PLATELET COUNT (BEAKER) (test edmq=299) 73 K/CU MM 150-450 MEAN PLATELET VOLUME (BEAKER) (test cxgo=739) 8.8 fL 9.4-12.4 NUCLEATED RED BLOOD CELLS (BEAKER) (test 0 /100 WBC 0-0 zlfv=917) NEUTROPHILS RELATIVE PERCENT (BEAKER) (test 71 % wina=186) LYMPHOCYTES RELATIVE PERCENT (BEAKER) (test 10 % krxw=173) MONOCYTES RELATIVE PERCENT (BEAKER) (test 16 % jhtp=410) EOSINOPHILS RELATIVE PERCENT (BEAKER) (test 3 % ksli=253) BASOPHILS RELATIVE PERCENT (BEAKER) (test 0 % awdo=637) NEUTROPHILS ABSOLUTE COUNT (BEAKER) (test 3.56 K/ L 1.78-5.38 ofdz=903) LYMPHOCYTES ABSOLUTE COUNT (BEAKER) (test 0.48 K/ L 1.32-3.57 bgzg=463) MONOCYTES ABSOLUTE COUNT (BEAKER) (test qilt=283) 0.80 K/ L 0.30-0.82 EOSINOPHILS ABSOLUTE COUNT (BEAKER) (test 0.13 K/ L 0.04-0.54 vpgk=452) BASOPHILS ABSOLUTE COUNT (BEAKER) (test glpy=276) 0.01 K/ L 0.01-0.08 IMMATURE GRANULOCYTES-RELATIVE PERCENT (BEAKER) 1 % 0-1 (test opkz=7694) POCT-GLUCOSE [id number] 21:24:00 Test Item Value Reference Range Comments POC-GLUCOSE METER (BEAKER) 137 mg/dL 70-110 TESTED AT [address] (test evgl=6467) [place] [address] POCT-GLUCOSE [id number] 17:52:00 Test Item Value Reference Range Comments POC-GLUCOSE METER (BEAKER) 166 mg/dL 70-110 TESTED AT [address] (test lgqi=7176) [place] [address] BASIC METABOLIC [id number] 17:48:00 Test Item Value Reference Range Comments SODIUM (BEAKER) (test 128 meq/L 136-145 ontz=899) POTASSIUM (BEAKER) (test 4.0 meq/L 3.5-5.1 gooo=334) CHLORIDE (BEAKER) (test 97 meq/L 98-107 fjmf=502) CO2 (BEAKER) (test 23 meq/L 22-29 zfpr=444) BLOOD UREA NITROGEN 24 mg/dL 7-21 (BEAKER) (test amrh=543) CREATININE (BEAKER) (test 1.25 mg/dL 0.57-1.25 zsoo=572) GLUCOSE RANDOM (BEAKER) 123 mg/dL 70-105 (test qqta=502) CALCIUM (BEAKER) (test 8.9 mg/dL 8.4-10.2 aibs=825) EGFR (BEAKER) (test 60 mL/min/1.73 sq m ESTIMATED GFR IS NOT zzcz=0859) ACCURATE CREATININE CLEARANCE IN PREDICTING GLOMERULAR FILTRATION RATE. ESTIMATED GFR IS NOT APPLICABLE FOR DIALYSIS PATIENTS. POCT-GLUCOSE [id number] 12:18:00 Test Item Value Reference Range Comments POC-GLUCOSE METER (BEAKER) 152 mg/dL 70-110 TESTED AT [address] (test drqf=0522) [place] [address] POCT-GLUCOSE [id number] 09:31:00 Test Item Value Reference Range Comments POC-GLUCOSE METER (BEAKER) 142 mg/dL 70-110 TESTED AT [address] (test tnzy=1908) [place] [address] BASIC METABOLIC [id number] 09:03:00 Test Item Value Reference Range Comments SODIUM (BEAKER) (test 125 meq/L 136-145 hhxv=012) POTASSIUM (BEAKER) (test 5.1 meq/L 3.5-5.1 Specimen slightly xdcr=116) hemolyzed CHLORIDE (BEAKER) (test 95 meq/L 98-107 dfdc=971) CO2 (BEAKER) (test 23 meq/L 22-29 pdxf=605) BLOOD UREA NITROGEN 26 mg/dL 7-21 (BEAKER) (test axwy=988) CREATININE (BEAKER) (test 1.25 mg/dL 0.57-1.25 Specimen slightly lhxl=330) hemolyzed GLUCOSE RANDOM (BEAKER) 99 mg/dL 70-105 (test xqby=236) CALCIUM (BEAKER) (test 9.0 mg/dL 8.4-10.2 rqpx=480) EGFR (BEAKER) (test 60 mL/min/1.73 sq m ESTIMATED GFR IS NOT mszt=1781) ACCURATE CREATININE CLEARANCE IN PREDICTING GLOMERULAR FILTRATION RATE. ESTIMATED GFR IS NOT APPLICABLE FOR DIALYSIS PATIENTS. POCT-GLUCOSE [id number] 08:38:00 Test Item Value Reference Range Comments POC-GLUCOSE METER (BEAKER) 171 mg/dL 70-110 TESTED AT [address] (test isbp=2277) [place] [address] [id number] 05:30:00 Test Item Value Reference Range Comments PHOSPHORUS (BEAKER) (test uwuc=039) 2.9 mg/dL 2.3-4.7 [id number] 05:30:00 Test Item Value Reference Range Comments MAGNESIUM (BEAKER) (test rquw=348) 2.2 mg/dL 1.6-2.6 COMPREHENSIVE METABOLIC [id number] 05:30:00 Test Item Value Reference Range Comments TOTAL PROTEIN (BEAKER) 5.2 gm/dL 6.0-8.3 (test rbgh=603) ALBUMIN (BEAKER) (test 3.4 g/dL 3.5-5.0 eyzq=6373) ALKALINE PHOSPHATASE 134 U/L 40-150 (BEAKER) (test zybj=214) BILIRUBIN TOTAL (BEAKER) 2.3 mg/dL 0.2-1.2 (test mgsf=234) SODIUM (BEAKER) (test 124 meq/L 136-145 qjcs=760) POTASSIUM (BEAKER) (test 4.9 meq/L 3.5-5.1 rvoq=084) CHLORIDE (BEAKER) (test 94 meq/L 98-107 xtcn=679) CO2 (BEAKER) (test 24 meq/L 22-29 ifjd=856) BLOOD UREA NITROGEN 27 mg/dL 7-21 (BEAKER) (test hwgk=770) CREATININE (BEAKER) (test 1.27 mg/dL 0.57-1.25 qgxf=933) GLUCOSE RANDOM (BEAKER) 122 mg/dL 70-105 (test yzct=738) CALCIUM (BEAKER) (test 9.2 mg/dL 8.4-10.2 gdrn=462) AST (SGOT) (BEAKER) (test 24 U/L 5-34 kxys=751) ALT (SGPT) (BEAKER) (test 10 U/L 6-55 xohn=813) EGFR (BEAKER) (test 59 mL/min/1.73 sq m ESTIMATED GFR IS NOT tgdx=2635) ACCURATE CREATININE CLEARANCE IN PREDICTING GLOMERULAR FILTRATION RATE. ESTIMATED GFR IS NOT APPLICABLE FOR DIALYSIS PATIENTS. BILIRUBIN, [id number] 05:30:00 Test Item Value Reference Range Comments BILIRUBIN DIRECT (BEAKER) (test smot=860) 1.5 mg/dL 0.1-0.5 PROTHROMBIN TIME/[id number] 05:09:00 Test Item Value Reference Range Comments PROTIME (BEAKER) (test bvnd=616) 22.3 seconds 11.7-14.7 INR (BEAKER) (test gbeg=219) 2.0 <=5.9 RECOMMENDED COUMADIN/WARFARIN INR THERAPY RANGESSTANDARD DOSE: 2.0 - 3.0 Includes: PROPHYLAXIS forvenous thrombosis, systemic embolization; TREATMENT for venous thrombosis and/or pulmonary embolus.HIGH RISK: Target INR is 2.5-3.5 for patients with mechanical heart valves.CBC W/PLT COUNT & AUTO [id number] 04:59:00 Test Item Value Reference Range Comments WHITE BLOOD CELL COUNT (BEAKER) (test ojyx=685) 5.0 K/ L 3.5-10.5 RED BLOOD CELL COUNT (BEAKER) (test xxre=780) 2.24 M/ L 4.63-6.08 HEMOGLOBIN (BEAKER) (test kikk=945) 7.2 GM/DL 13.7-17.5 HEMATOCRIT (BEAKER) (test iahr=806) 20.8 % 40.1-51.0 MEAN CORPUSCULAR VOLUME (BEAKER) (test qgrz=524) 92.9 fL 79.0-92.2 MEAN CORPUSCULAR HEMOGLOBIN (BEAKER) (test 32.1 pg 25.7-32.2 ybvc=839) MEAN CORPUSCULAR HEMOGLOBIN CONC (BEAKER) (test 34.6 GM/DL 32.3-36.5 viux=445) RED CELL DISTRIBUTION WIDTH (BEAKER) (test 14.2 % 11.6-14.4 pqde=392) PLATELET COUNT (BEAKER) (test cwtl=434) 56 K/CU MM 150-450 MEAN PLATELET VOLUME (BEAKER) (test zbaq=905) 8.9 fL 9.4-12.4 NUCLEATED RED BLOOD CELLS (BEAKER) (test 0 /100 WBC 0-0 azxw=762) NEUTROPHILS RELATIVE PERCENT (BEAKER) (test 82 % vibz=434) LYMPHOCYTES RELATIVE PERCENT (BEAKER) (test 5 % wwdb=545) MONOCYTES RELATIVE PERCENT (BEAKER) (test 12 % hbpd=593) EOSINOPHILS RELATIVE PERCENT (BEAKER) (test 0 % aupf=412) BASOPHILS RELATIVE PERCENT (BEAKER) (test 0 % rdcb=813) NEUTROPHILS ABSOLUTE COUNT (BEAKER) (test 4.12 K/ L 1.78-5.38 qbgc=471) LYMPHOCYTES ABSOLUTE COUNT (BEAKER) (test 0.26 K/ L 1.32-3.57 rcyk=215) MONOCYTES ABSOLUTE COUNT (BEAKER) (test puxm=125) 0.59 K/ L 0.30-0.82 EOSINOPHILS ABSOLUTE COUNT (BEAKER) (test 0.00 K/ L 0.04-0.54 ajnk=045) BASOPHILS ABSOLUTE COUNT (BEAKER) (test puwk=718) 0.00 K/ L 0.01-0.08 IMMATURE GRANULOCYTES-RELATIVE PERCENT (BEAKER) 1 % 0-1 (test ddpl=6955) CALCIUM, [id number] 04:57:00 Test Item Value Reference Range Comments CALCIUM IONIZED (BEAKER) (test chbp=699) 1.14 mmol/L 1.12-1.27 PH, BLOOD (BEAKER) (test cwda=4865) 7.39 POCT-GLUCOSE [id number] 00:41:00 Test Item Value Reference Range Comments POC-GLUCOSE METER (BEAKER) 186 mg/dL 70-[address] [facility] [address] [facility] (test hyrv=9911) [facility] [address] CORTISOL,60 [id number] 23:00:00 Test Item Value Reference Range Comments CORTISOL BASELINE NETWORKED (BEAKER) (test 7.5 mcg/dL aaff=6810) CORTISOL 30 MINUTE NETWORKED (BEAKER) (test 14.1 mcg/dL kuhm=4586) CORTISOL, 60 MINUTE (BEAKER) (test dkro=3273) 18.9 ug/dL ACTH STIMULATION TEST INTERPRETATION GUIDELINES(Synonyms: [...] serum cortisollevel 60 minutes after cosyntropin administration.CORTISOL,30 [id number] 22:05:00 Test Item Value Reference Range Comments CORTISOL BASELINE NETWORKED (BEAKER) (test 7.5 mcg/dL ogjm=2955) CORTISOL, 30 MINUTE (BEAKER) (test gofw=3149) 14.1 ug/dL ACTH STIMULATION TEST INTERPRETATION GUIDELINES(Synonyms: [...] study by Mindy et al (NEVAEH 2000,283( 8):0748-45), the ACTH Stimulation Test provides important prognostic [...] cortisollevel 60 minutes after cosyntropin administration.BASIC METABOLIC [id number] 21:42:00 Test Item Value Reference Range Comments SODIUM (BEAKER) (test 123 meq/L 136-145 qolk=247) POTASSIUM (BEAKER) (test 4.3 meq/L 3.5-5.1 sqjo=028) CHLORIDE (BEAKER) (test 93 meq/L 98-107 twoj=331) CO2 (BEAKER) (test 24 meq/L 22-29 fdyq=131) BLOOD UREA NITROGEN 29 mg/dL 7-21 (BEAKER) (test lhxt=860) CREATININE (BEAKER) (test 1.38 mg/dL 0.57-1.25 tfkm=901) GLUCOSE RANDOM (BEAKER) 109 mg/dL 70-105 (test gacu=879) CALCIUM (BEAKER) (test 9.2 mg/dL 8.4-10.2 kdpi=744) EGFR (BEAKER) (test 54 mL/min/1.73 sq m ESTIMATED GFR IS NOT qwxr=8436) ACCURATE CREATININE CLEARANCE IN PREDICTING GLOMERULAR FILTRATION RATE. ESTIMATED GFR IS NOT APPLICABLE FOR DIALYSIS PATIENTS. Call results to Dr Almendarez METABOLIC [id number] 18:03:00 Test Item Value Reference Range Comments SODIUM (BEAKER) (test 124 meq/L 136-145 twgl=684) POTASSIUM (BEAKER) (test 4.6 meq/L 3.5-5.1 rdjo=096) CHLORIDE (BEAKER) (test 93 meq/L 98-107 gurs=843) CO2 (BEAKER) (test 25 meq/L 22-29 rtln=519) BLOOD UREA NITROGEN 32 mg/dL 7-21 (BEAKER) (test xqjf=966) CREATININE (BEAKER) (test 1.40 mg/dL 0.57-1.25 vyqu=346) GLUCOSE RANDOM (BEAKER) 94 mg/dL 70-105 (test rjbo=416) CALCIUM (BEAKER) (test 9.0 mg/dL 8.4-10.2 dpaz=237) EGFR (BEAKER) (test 53 mL/min/1.73 sq m ESTIMATED GFR IS NOT hkem=3436) ACCURATE CREATININE CLEARANCE IN PREDICTING GLOMERULAR FILTRATION RATE. ESTIMATED GFR IS NOT APPLICABLE FOR DIALYSIS PATIENTS. BODY FLUID CELL COUNT WITH [id number] 13:54:00 Test Item Value Reference Range Comments APPEARANCE FLUID (BEAKER) (test rnpv=977) Slightly Hazy Clear COLOR FLUID (BEAKER) (test oxpq=309) Yellow Colorless, Straw RBC FLUID (BEAKER) (test hafq=082) 1000 /cu mm <=1 ADJUSTED WBC FLUID (BEAKER) (test ynem=6627) 54 /cu mm <=5 LINING CELLS (BEAKER) (test qiwl=9932) 2 /cu mm <=1 NEUTROPHILS FLUID (BEAKER) (test lseo=6219) 6 % LYMPHS FLUID (BEAKER) (test pfiq=727) 25 % MONO/MACROPHAGE FLUID (BEAKER) (test 69 % endn=112) EOSINOPHILS FLUID (BEAKER) (test vlnf=504) 0 % BASO FLUID (BEAKER) (test tgzs=265) 0 % CONTAINER BODY FLUID (BEAKER) (test Sterile Vial thck=1612) ALBUMIN, BODY [id number] 13:45:00 Test Item Value Reference Range Comments ALBUMIN FLUID (BEAKER) (test wfpx=190) 0.8 gm/dL Reference Range: No Normals Assay performance has not been validated for this type of specimen.LACTATE DEHYDROGENASE (LDH), BODY [id number] 13:13:00 Test Item Value Reference Range Comments LACTATE DEHYDROGENASE FLUID (BEAKER) (test rwbu=435) < U/L Absence of reference range indicates that normals have not been defined.Assay performance has not been validated for this type of specimen.GLUCOSE, BODY [id number] 13:13:00 Test Item Value Reference Range Comments GLUCOSE, BODY FLUID (BEAKER) (test dyof=2743) 82 mg/dL Absence of reference range indicates that normals have not been defined.Assay performance has not been validated for this type of specimen.TRIGLYCERIDES, BODY [id number] 13:10:00 Test Item Value Reference Range Comments TRIGLYCERIDES FLUID (BEAKER) (test yzds=133) 39 mg/dL Reference Range: No Normals Assay performance has not been validated for this type of specimen.PROTEIN, BODY [id number] 13:09:00 Test Item Value Reference Range Comments PROTEIN FLUID (BEAKER) (test kcgq=756) 1.2 g/dL Absence of reference range indicates that normals have not been defined.Assay performance has not been validated for this type of specimen.CORTISOL, [id number] 12:52:00 Test Item Value Reference Range Comments CORTISOL, BASELINE (BEAKER) (test atcu=3494) 7.5 ug/dL ACTH STIMULATION TEST INTERPRETATION GUIDELINES(Synonyms: [...] study by Mindy et al (NEVAEH 2000,283( 8):1678-45), the ACTH Stimulation Test provides important prognostic [...] cortisollevel 60 minutes after cosyntropin administration.BASIC METABOLIC [id number] 12:40:00 Test Item Value Reference Range Comments SODIUM (BEAKER) (test 119 meq/L 136-145 eqcw=310) POTASSIUM (BEAKER) (test 5.2 meq/L 3.5-5.1 cghp=868) CHLORIDE (BEAKER) (test 90 meq/L 98-107 diyy=827) CO2 (BEAKER) (test 23 meq/L 22-29 twpc=071) BLOOD UREA NITROGEN 34 mg/dL 7-21 (BEAKER) (test joss=774) CREATININE (BEAKER) (test 1.46 mg/dL 0.57-1.25 xaus=751) GLUCOSE RANDOM (BEAKER) 84 mg/dL 70-105 (test pdjt=455) CALCIUM (BEAKER) (test 8.8 mg/dL 8.4-10.2 kvoa=288) EGFR (BEAKER) (test 51 mL/min/1.73 sq m ESTIMATED GFR IS NOT zfhy=0112) ACCURATE CREATININE CLEARANCE IN PREDICTING GLOMERULAR FILTRATION RATE. ESTIMATED GFR IS NOT APPLICABLE FOR DIALYSIS PATIENTS. Specimen slightly ictericRAD, CHEST, 1 VIEW, NON [id number] 11:50:00Reason for exam:->coughShould this be performed at the bedside?->YesFINAL REPORT Chest one view compared to May 12, 2018 Discussion: There is diffuse interstitial prominence. No effusion or pneumothorax. Heart size normal. IMPRESSIONS: No changeSigned: Karina Pugh MDReport Verified Date/ Time: 08/26/2018 11:50:19 Reading Location: [facility] Reading Room BASIC METABOLIC [id number] 09:35:00 Test Item Value Reference Range Comments SODIUM (BEAKER) (test 119 meq/L 136-145 qsnz=318) POTASSIUM (BEAKER) (test 4.9 meq/L 3.5-5.1 tuzb=400) CHLORIDE (BEAKER) (test 89 meq/L 98-107 dlbu=833) CO2 (BEAKER) (test 23 meq/L 22-29 chuw=547) BLOOD UREA NITROGEN 36 mg/dL 7-21 (BEAKER) (test stqn=831) CREATININE (BEAKER) (test 1.46 mg/dL 0.57-1.25 fpqd=072) GLUCOSE RANDOM (BEAKER) 83 mg/dL 70-105 (test whsc=875) CALCIUM (BEAKER) (test 8.8 mg/dL 8.4-10.2 fxza=217) EGFR (BEAKER) (test 51 mL/min/1.73 sq m ESTIMATED GFR IS NOT qyaz=2359) ACCURATE CREATININE CLEARANCE IN PREDICTING GLOMERULAR FILTRATION RATE. ESTIMATED GFR IS NOT APPLICABLE FOR DIALYSIS PATIENTS. POCT-GLUCOSE [id number] 05:56:00 Test Item Value Reference Range Comments POC-GLUCOSE METER (BEAKER) 86 mg/dL 70-110 TESTED AT [address] (test juqd=8117) [facility] [address] CBC W/PLT COUNT & AUTO [id number] 04:42:00 Test Item Value Reference Range Comments WHITE BLOOD CELL COUNT (BEAKER) (test kzto=809) 10.5 K/ L 3.5-10.5 RED BLOOD CELL COUNT (BEAKER) (test zqrc=126) 2.37 M/ L 4.63-6.08 HEMOGLOBIN (BEAKER) (test qype=171) 7.4 GM/DL 13.7-17.5 HEMATOCRIT (BEAKER) (test rxur=554) 21.6 % 40.1-51.0 MEAN CORPUSCULAR VOLUME (BEAKER) (test svho=661) 91.1 fL 79.0-92.2 MEAN CORPUSCULAR HEMOGLOBIN (BEAKER) (test 31.2 pg 25.7-32.2 rtqv=891) MEAN CORPUSCULAR HEMOGLOBIN CONC (BEAKER) (test 34.3 GM/DL 32.3-36.5 wwfp=872) RED CELL DISTRIBUTION WIDTH (BEAKER) (test 14.4 % 11.6-14.4 crvz=713) PLATELET COUNT (BEAKER) (test gcgn=154) 67 K/CU MM 150-450 MEAN PLATELET VOLUME (BEAKER) (test xbup=041) 8.3 fL 9.4-12.4 NUCLEATED RED BLOOD CELLS (BEAKER) (test 0 /100 WBC 0-0 jndp=921) NEUTROPHILS RELATIVE PERCENT (BEAKER) (test 82 % cyes=766) LYMPHOCYTES RELATIVE PERCENT (BEAKER) (test 4 % tdkt=232) MONOCYTES RELATIVE PERCENT (BEAKER) (test 12 % vvtu=877) EOSINOPHILS RELATIVE PERCENT (BEAKER) (test 1 % jlsd=815) BASOPHILS RELATIVE PERCENT (BEAKER) (test 0 % hzil=691) NEUTROPHILS ABSOLUTE COUNT (BEAKER) (test 8.62 K/ L 1.78-5.38 hjka=853) LYMPHOCYTES ABSOLUTE COUNT (BEAKER) (test 0.45 K/ L 1.32-3.57 kctd=698) MONOCYTES ABSOLUTE COUNT (BEAKER) (test whet=282) 1.31 K/ L 0.30-0.82 EOSINOPHILS ABSOLUTE COUNT (BEAKER) (test 0.10 K/ L 0.04-0.54 datr=227) BASOPHILS ABSOLUTE COUNT (BEAKER) (test nskf=575) 0.00 K/ L 0.01-0.08 IMMATURE GRANULOCYTES-RELATIVE PERCENT (BEAKER) 1 % 0-1 (test cobo=5841) COMPREHENSIVE METABOLIC [id number] 04:36:00 Test Item Value Reference Range Comments TOTAL PROTEIN (BEAKER) 4.9 gm/dL 6.0-8.3 (test kilu=954) ALBUMIN (BEAKER) (test 2.8 g/dL 3.5-5.0 kjdx=6213) ALKALINE PHOSPHATASE 146 U/L 40-150 (BEAKER) (test qkre=822) BILIRUBIN TOTAL (BEAKER) 2.9 mg/dL 0.2-1.2 (test mfnb=754) SODIUM (BEAKER) (test 118 meq/L 136-145 rmwu=071) POTASSIUM (BEAKER) (test 5.2 meq/L 3.5-5.1 areq=638) CHLORIDE (BEAKER) (test 90 meq/L 98-107 nlbh=700) CO2 (BEAKER) (test 23 meq/L 22-29 vcug=443) BLOOD UREA NITROGEN 37 mg/dL 7-21 (BEAKER) (test rdtd=679) CREATININE (BEAKER) (test 1.47 mg/dL 0.57-1.25 skvs=666) GLUCOSE RANDOM (BEAKER) 65 mg/dL 70-105 (test lirn=528) CALCIUM (BEAKER) (test 8.9 mg/dL 8.4-10.2 kqjn=434) AST (SGOT) (BEAKER) (test 29 U/L 5-34 gjrj=404) ALT (SGPT) (BEAKER) (test 10 U/L 6-55 vqig=497) EGFR (BEAKER) (test 50 mL/min/1.73 sq m ESTIMATED GFR IS NOT qbxb=1398) ACCURATE CREATININE CLEARANCE IN PREDICTING GLOMERULAR FILTRATION RATE. ESTIMATED GFR IS NOT APPLICABLE FOR DIALYSIS PATIENTS. Specimen slightly [id number] 04:33:00 Test Item Value Reference Range Comments PHOSPHORUS (BEAKER) (test nmud=894) 3.1 mg/dL 2.3-4.7 [id number] 04:33:00 Test Item Value Reference Range Comments MAGNESIUM (BEAKER) (test hgnb=843) 2.1 mg/dL 1.6-2.6 CALCIUM, [id number] 04:05:00 Test Item Value Reference Range Comments CALCIUM IONIZED (BEAKER) (test ysmj=753) 1.13 mmol/L 1.12-1.27 PH, BLOOD (BEAKER) (test fxhs=1527) 7.38 BASIC METABOLIC [id number] 01:34:00 Test Item Value Reference Range Comments SODIUM (BEAKER) (test 117 meq/L 136-145 dfli=281) POTASSIUM (BEAKER) (test 4.9 meq/L 3.5-5.1 sigf=256) CHLORIDE (BEAKER) (test 89 meq/L 98-107 abnm=498) CO2 (BEAKER) (test 22 meq/L 22-29 etml=630) BLOOD UREA NITROGEN 37 mg/dL 7-21 (BEAKER) (test mlkd=178) CREATININE (BEAKER) (test 1.52 mg/dL 0.57-1.25 yrgf=279) GLUCOSE RANDOM (BEAKER) 67 mg/dL 70-105 (test pvvz=828) CALCIUM (BEAKER) (test 9.1 mg/dL 8.4-10.2 aucf=731) EGFR (BEAKER) (test 48 mL/min/1.73 sq m ESTIMATED GFR IS NOT ggsf=1479) ACCURATE CREATININE CLEARANCE IN PREDICTING GLOMERULAR FILTRATION RATE. ESTIMATED GFR IS NOT APPLICABLE FOR DIALYSIS PATIENTS. Specimen slightly ictericU/S, ABDOMINAL, [id number] 23:49:00Abdomen limited area? Add comment if clarification [...] Verified Date/Time: 08/25/2018 23:49:36 Reading Location: [facility] C013Y CT Body Reading Room POCT-GLUCOSE [id number] 23:16:00 Test Item Value Reference Range Comments POC-GLUCOSE METER (BEAKER) 89 mg/dL 70-[address] [facility] [address] [facility] (test yhyz=8812) [facility] [address] COMPREHENSIVE METABOLIC [id number] 21:15:00 Test Item Value Reference Range Comments TOTAL PROTEIN (BEAKER) 5.4 gm/dL 6.0-8.3 (test ajwp=622) ALBUMIN (BEAKER) (test 3.1 g/dL 3.5-5.0 nkpc=5898) ALKALINE PHOSPHATASE 164 U/L 40-150 (BEAKER) (test ucfs=874) BILIRUBIN TOTAL (BEAKER) 3.1 mg/dL 0.2-1.2 (test ztno=149) SODIUM (BEAKER) (test 116 meq/L 136-145 vrwo=391) POTASSIUM (BEAKER) (test 5.0 meq/L 3.5-5.1 vxbh=816) CHLORIDE (BEAKER) (test 87 meq/L 98-107 ixjs=105) CO2 (BEAKER) (test 22 meq/L 22-29 xxjr=781) BLOOD UREA NITROGEN 38 mg/dL 7-21 (BEAKER) (test tstw=802) CREATININE (BEAKER) (test 1.52 mg/dL 0.57-1.25 yrlr=614) GLUCOSE RANDOM (BEAKER) 67 mg/dL 70-105 (test vnhy=198) CALCIUM (BEAKER) (test 9.1 mg/dL 8.4-10.2 ymmv=662) AST (SGOT) (BEAKER) (test 30 U/L 5-34 tzey=429) ALT (SGPT) (BEAKER) (test 10 U/L 6-55 vars=071) EGFR (BEAKER) (test 48 mL/min/1.73 sq m ESTIMATED GFR IS NOT itfi=5817) ACCURATE CREATININE CLEARANCE IN PREDICTING GLOMERULAR FILTRATION RATE. ESTIMATED GFR IS NOT APPLICABLE FOR DIALYSIS PATIENTS. Recheck and call Dr. Solorio with results [phone] slightly ictericBASIC METABOLIC [id number] 17:36:00 Test Item Value Reference Range Comments SODIUM (BEAKER) (test 119 meq/L 136-145 rrsq=164) POTASSIUM (BEAKER) (test 5.0 meq/L 3.5-5.1 ggkp=412) CHLORIDE (BEAKER) (test 89 meq/L 98-107 udnd=592) CO2 (BEAKER) (test 22 meq/L 22-29 reee=182) BLOOD UREA NITROGEN 38 mg/dL 7-21 (BEAKER) (test uxrn=244) CREATININE (BEAKER) (test 1.50 mg/dL 0.57-1.25 dxxq=031) GLUCOSE RANDOM (BEAKER) 70 mg/dL 70-105 (test plbx=423) CALCIUM (BEAKER) (test 8.9 mg/dL 8.4-10.2 easy=600) EGFR (BEAKER) (test 49 mL/min/1.73 sq m ESTIMATED GFR IS NOT jtbu=9552) ACCURATE CREATININE CLEARANCE IN PREDICTING GLOMERULAR FILTRATION RATE. ESTIMATED GFR IS NOT APPLICABLE FOR DIALYSIS PATIENTS. Specimen slightly ictericCT, CHEST, WITH HIGH RESOLUTION, INTERSTITAL LUNG [id number] 17:36:00Reason for exam:->follow up for lung noduleFINAL [...] Impression: Bibasilar subsegmental atelectasis. Signed: Lena Lynn Verified Date/Time: 08/25/2018 17:36:51 Reading Location: [facility] C013Y CT Body Reading Room CT, SPINE, LUMBAR, WO [id number] 17:06:00FINAL REPORT CT thoracic and lumbar spine [...] compromise. 2. Nonskeletal findings as discussed. Signed: Tashia Bain Verified Date/Time: 08/25/2018 17:06:21 Reading Location: [facility] Radiology Reading Room CT, SPINE, THORACIC, WO [id number] 17:06:00FINAL REPORT CT thoracic and lumbar spine [...] compromise. 2. Nonskeletal findings as discussed. Signed: Tashia Baineport Verified Date/Time: 08/25/2018 17: 06:21 Reading Location: [facility] Radiology Reading Room EOSINOPHIL SMEAR, [id number] 16:40:00 Test Item Value Reference Range Comments EOSINOPHIL SMEAR, URINE (BEAKER) (test No EOS seen No EOS seen impr=3868) SODIUM, RANDOM [id number] 15:13:00 Test Item Value Reference Range Comments SODIUM URINE (BEAKER) (test lopb=434) < meq/L Reference Range: No NormalsCOMPREHENSIVE METABOLIC [id number] 15:12:00 Test Item Value Reference Range Comments TOTAL PROTEIN (BEAKER) 5.0 gm/dL 6.0-8.3 (test chft=383) ALBUMIN (BEAKER) (test 2.9 g/dL 3.5-5.0 elhz=2519) ALKALINE PHOSPHATASE 154 U/L 40-150 (BEAKER) (test kxwh=000) BILIRUBIN TOTAL (BEAKER) 3.1 mg/dL 0.2-1.2 (test ihke=199) SODIUM (BEAKER) (test 116 meq/L 136-145 hejz=791) POTASSIUM (BEAKER) (test 4.8 meq/L 3.5-5.1 toeo=463) CHLORIDE (BEAKER) (test 87 meq/L 98-107 acbb=250) CO2 (BEAKER) (test 24 meq/L 22-29 xcah=539) BLOOD UREA NITROGEN 39 mg/dL 7-21 (BEAKER) (test sqfd=498) CREATININE (BEAKER) (test 1.53 mg/dL 0.57-1.25 yheu=570) GLUCOSE RANDOM (BEAKER) 67 mg/dL 70-105 (test drrs=962) CALCIUM (BEAKER) (test 8.6 mg/dL 8.4-10.2 puen=540) AST (SGOT) (BEAKER) (test 24 U/L 5-34 emny=437) ALT (SGPT) (BEAKER) (test 11 U/L 6-55 ktsq=506) EGFR (BEAKER) (test 48 mL/min/1.73 sq m ESTIMATED GFR IS NOT gimr=7054) ACCURATE CREATININE CLEARANCE IN PREDICTING GLOMERULAR FILTRATION RATE. ESTIMATED GFR IS NOT APPLICABLE FOR DIALYSIS PATIENTS. Specimen slightly ictericPROTEIN, RANDOM [id number] 15:12:00 Test Item Value Reference Range Comments PROTEIN, URINE (BEAKER) (test zhoe=0947) < mg/dL 0-14 CREATININE, RANDOM [id number] 15:10:00 Test Item Value Reference Range Comments CREATININE URINE (BEAKER) (test ikot=676) 75.0 mg/dL Reference Range: No NormalsURINALYSIS W/ [id number] 14:55:00 Test Item Value Reference Range Comments COLOR (BEAKER) (test egyx=924) Yellow CLARITY (BEAKER) (test jvza=218) Hazy SPECIFIC GRAVITY UA (BEAKER) (test notg=706) 1.009 1.001-1.035 PH UA (BEAKER) (test zwda=731) 5.5 5.0-8.0 PROTEIN UA (BEAKER) (test nyvx=182) Negative Negative GLUCOSE UA (BEAKER) (test pxax=595) Negative Negative KETONES UA (BEAKER) (test xgak=864) Negative Negative BILIRUBIN UA (BEAKER) (test xrzc=735) Negative Negative BLOOD UA (BEAKER) (test ceay=755) Small Negative NITRITE UA (BEAKER) (test fqru=548) Negative Negative LEUKOCYTE ESTERASE UA (BEAKER) (test yzoo=637) Negative Negative UROBILINOGEN UA (BEAKER) (test hryc=600) 0.2 mg/dL 0.2-1.0 RBC UA (BEAKER) (test trwo=208) 20 /HPF WBC UA (BEAKER) (test faqb=267) 27 /HPF SQUAMOUS EPITHELIAL (BEAKER) (test aaea=115) 18 /HPF SOURCE(BEAKER) (test iqwh=8852) URINALYSIS W/ REFLEX URINE [id number] 14:47:00 Test Item Value Reference Range Comments COLOR (BEAKER) (test sjml=908) Yellow CLARITY (BEAKER) (test phhq=607) Hazy SPECIFIC GRAVITY UA (BEAKER) (test nbhm=662) 1.010 1.001-1.035 PH UA (BEAKER) (test mpkk=193) 5.5 5.0-8.0 PROTEIN UA (BEAKER) (test nlnd=302) Negative Negative GLUCOSE UA (BEAKER) (test ugno=742) Negative Negative KETONES UA (BEAKER) (test vvty=035) Negative Negative BILIRUBIN UA (BEAKER) (test bnbk=491) Negative Negative BLOOD UA (BEAKER) (test gtdf=180) Small Negative NITRITE UA (BEAKER) (test umdn=242) Negative Negative LEUKOCYTE ESTERASE UA (BEAKER) (test geif=354) Negative Negative UROBILINOGEN UA (BEAKER) (test qitv=044) 0.2 mg/dL 0.2-1.0 RBC UA (BEAKER) (test inxw=836) 38 /HPF WBC UA (BEAKER) (test juwa=427) 7 /HPF SQUAMOUS EPITHELIAL (BEAKER) (test hmxs=392) 18 /HPF AMORPHOUS CRYSTALS (BEAKER) (test ukem=4697) Rare SOURCE(BEAKER) (test woxz=4695) OSMOLALITY, [id number] 14:40:00 Test Item Value Reference Range Comments OSMOLALITY URINE (BEAKER) (test tcor=110) 284 mOsm/kg 40-1,400 [id number] 13:34:00 Test Item Value Reference Range Comments PROCALCITONIN (BEAKER) (test quiq=9334) 0.25 ng/mL <0.05 SEPSIS RISK (ng/mL)Low: 0.05-0.50Intermediate: 0.51-2.00High: & gt;=2.01OSMOLALITY, [id number] 12:43:00 Test Item Value Reference Range Comments OSMOLALITY URINE (BEAKER) (test uwxn=428) 316 mOsm/kg 40-1,400 OSMOLALITY, [id number] 12:41:00 Test Item Value Reference Range Comments OSMOLALITY, SERUM (BEAKER) (test tnuw=805) 259 mOsm/kg 275-295 TSH/FREE T4 IF [id number] 11:36:00 Test Item Value Reference Range Comments THYROID STIMULATING HORMONE (BEAKER) (test 2.55 uIU/mL 0.35-4.94 sjwk=234) [id number] 11:34:00 Test Item Value Reference Range Comments CORTISOL, TOTAL (BEAKER) (test kcjc=8333) 7.9 ug/dL 3.7-19.4 SODIUM, RANDOM [id number] 11:34:00 Test Item Value Reference Range Comments SODIUM URINE (BEAKER) (test jhrz=826) < meq/L Reference Range: No NormalsBASIC METABOLIC [id number] 11:24:00 Test Item Value Reference Range Comments SODIUM (BEAKER) (test 113 meq/L 136-145 bayk=051) POTASSIUM (BEAKER) (test 5.3 meq/L 3.5-5.1 rxjp=019) CHLORIDE (BEAKER) (test 86 meq/L 98-107 ypvy=601) CO2 (BEAKER) (test 21 meq/L 22-29 bnqk=501) BLOOD UREA NITROGEN 39 mg/dL 7-21 (BEAKER) (test gaip=624) CREATININE (BEAKER) (test 1.57 mg/dL 0.57-1.25 swag=943) GLUCOSE RANDOM (BEAKER) 64 mg/dL 70-105 (test wgdb=576) CALCIUM (BEAKER) (test 9.1 mg/dL 8.4-10.2 mima=715) EGFR (BEAKER) (test 46 mL/min/1.73 sq m ESTIMATED GFR IS NOT kpyb=1927) ACCURATE CREATININE CLEARANCE IN PREDICTING GLOMERULAR FILTRATION RATE. ESTIMATED GFR IS NOT APPLICABLE FOR DIALYSIS PATIENTS. Specimen slightly ictericURIC [id number] 11:21:00 Test Item Value Reference Range Comments URIC ACID (BEAKER) (test dhav=451) 8.2 mg/dL 2.6-7.2 Specimen slightly ictericCREATININE, RANDOM [id number] 11:21:00 Test Item Value Reference Range Comments CREATININE URINE (BEAKER) (test hape=323) 81.9 mg/dL Reference Range: No NormalsPOTASSIUM, RANDOM [id number] 11:21:00 Test Item Value Reference Range Comments POTASSIUM URINE (BEAKER) (test apll=800) 19.2 meq/L Reference Range: No NormalsCBC W/PLT COUNT & AUTO [id number] 10: 20:00 Test Item Value Reference Range Comments WHITE BLOOD CELL COUNT (BEAKER) (test slnu=696) 10.9 K/ L 3.5-10.5 RED BLOOD CELL COUNT (BEAKER) (test sdrb=854) 2.46 M/ L 4.63-6.08 HEMOGLOBIN (BEAKER) (test jrsq=715) 7.9 GM/DL 13.7-17.5 HEMATOCRIT (BEAKER) (test rcrv=019) 22.2 % 40.1-51.0 MEAN CORPUSCULAR VOLUME (BEAKER) (test pacn=534) 90.2 fL 79.0-92.2 MEAN CORPUSCULAR HEMOGLOBIN (BEAKER) (test 32.1 pg 25.7-32.2 jlad=748) MEAN CORPUSCULAR HEMOGLOBIN CONC (BEAKER) (test 35.6 GM/DL 32.3-36.5 oytr=035) RED CELL DISTRIBUTION WIDTH (BEAKER) (test 14.2 % 11.6-14.4 sxxz=183) PLATELET COUNT (BEAKER) (test yeza=357) 82 K/CU MM 150-450 MEAN PLATELET VOLUME (BEAKER) (test gwgd=760) 8.3 fL 9.4-12.4 NUCLEATED RED BLOOD CELLS (BEAKER) (test 0 /100 WBC 0-0 oipu=958) (CELLAVISION MANUAL DIFF)[id number] 10:20:00 Test Item Value Reference Range Comments NEUTROPHILS - REL (CELLAVISION)(BEAKER) (test 80 % wjmi=4816) LYMPHOCYTES - REL (CELLAVISION)(BEAKER) (test 2 % czrb=1267) MONOCYTES - REL (CELLAVISION)(BEAKER) (test 6 % amvs=0827) BANDS - REL (CELLAVISION)(BEAKER) (test 12 % 0-10 tdih=7708) NEUTROPHILS - ABS (CELLAVISION)(BEAKER) (test 8.72 K/ul 1.78-5.38 exry=4660) LYMPHOCYTES - ABS (CELLAVISION)(BEAKER) (test 0.22 K/ul 1.32-3.57 wbkx=9073) MONOCYTES - ABS (CELLAVISION)(BEAKER) (test 0.65 K/uL 0.30-0.82 puka=9945) BANDS - ABS (CELLAVISION)(BEAKER) (test 1.31 K/uL 0.00-0.80 jwga=1647) TOTAL COUNTED (BEAKER) (test zvjf=8247) 100 WBC MORPHOLOGY (BEAKER) (test jawf=620) Normal PLT MORPHOLOGY (BEAKER) (test vrwn=281) Normal POLYCHROMATOPHILLIC RBCS(BEAKER) (test ryvr=460) 2+ moderate ANISOCYTOSIS (BEAKER) (test aoac=556) 2+ moderate POIKILOCYTES (BEAKER) (test qiln=768) 2+ moderate ARTIFACT (CELLAVISION)(BEAKER) (test rrvu=5925) Present PLATELET CONCENTRATION (CELLAVISION)(BEAKER) Decreased (test ximu=8054) Received comment: User comments: Slide comments:COMPREHENSIVE METABOLIC [id number] 09:30:00 Test Item Value Reference Range Comments TOTAL PROTEIN (BEAKER) 5.2 gm/dL 6.0-8.3 (test ndzv=293) ALBUMIN (BEAKER) (test 3.0 g/dL 3.5-5.0 pvms=7379) ALKALINE PHOSPHATASE 158 U/L 40-150 (BEAKER) (test pptu=414) BILIRUBIN TOTAL (BEAKER) 2.9 mg/dL 0.2-1.2 (test ebqo=227) SODIUM (BEAKER) (test 111 meq/L 136-145 qdnu=426) POTASSIUM (BEAKER) (test 5.5 meq/L 3.5-5.1 bftp=949) CHLORIDE (BEAKER) (test 87 meq/L 98-107 pdca=749) CO2 (BEAKER) (test 20 meq/L 22-29 gnxr=494) BLOOD UREA NITROGEN 39 mg/dL 7-21 (BEAKER) (test gwkw=390) CREATININE (BEAKER) (test 1.55 mg/dL 0.57-1.25 zgtb=259) GLUCOSE RANDOM (BEAKER) 79 mg/dL 70-105 (test pwxc=186) CALCIUM (BEAKER) (test 9.0 mg/dL 8.4-10.2 uzdd=917) AST (SGOT) (BEAKER) (test 27 U/L 5-34 eogu=333) ALT (SGPT) (BEAKER) (test 9 U/L 6-55 vtey=595) EGFR (BEAKER) (test 47 mL/min/1.73 sq m ESTIMATED GFR IS NOT iaqp=3336) ACCURATE CREATININE CLEARANCE IN PREDICTING GLOMERULAR FILTRATION RATE. ESTIMATED GFR IS NOT APPLICABLE FOR DIALYSIS PATIENTS. Specimen slightly ictericLACTIC ACID, VENOUS, WHOLE [id number] 09:15:00 Test Item Value Reference Range Comments LACTATE BLOOD VENOUS (2) (BEAKER) (test 0.9 mmol/L 0.5-2.2 ltua=3194) Effective 02/28/2016: Units/Reference Range ChangeNew: 0.5-2.2 mmol/L Previous: 5 -20 mg/dLSpecimen slightly [id number] 09:01:00 Test Item Value Reference Range Comments AMMONIA (BEAKER) (test jbsv=267) 83 mol/L 18-72 PT/[id number] 08:54:00 Test Item Value Reference Range Comments PROTIME (BEAKER) (test mtyw=337) 21.4 seconds 11.7-14.7 INR (BEAKER) (test wiai=396) 1.9 <=5.9 PARTIAL THROMBOPLASTIN TIME (BEAKER) (test 44.2 seconds 22.5-36.0 gvlb=822) RECOMMENDED COUMADIN/WARFARIN INR THERAPY RANGESSTANDARD DOSE: 2.0 - 3.0 Includes: PROPHYLAXIS forvenous thrombosis, systemic embolization; TREATMENT for venous thrombosis and/or pulmonary embolus.HIGH RISK: Target INR is 2.5-3.5 for patients with mechanical heart valves.PROTHROMBIN TIME/[id number] 08:53: 00 Test Item Value Reference Range Comments PROTIME (BEAKER) (test gtrt=406) 21.4 seconds 11.7-14.7 INR (BEAKER) (test uvuu=450) 1.9 <=5.9 RECOMMENDED COUMADIN/WARFARIN INR THERAPY RANGESSTANDARD DOSE: 2.0 - 3.0 Includes: PROPHYLAXIS forvenous thrombosis, systemic embolization; TREATMENT for venous thrombosis and/or pulmonary embolus.HIGH RISK: Target INR is 2.5-3.5 for patients with mechanical heart valves.COMPREHENSIVE METABOLIC [id number] 13:54:00 Test Item Value Reference Range Comments TOTAL PROTEIN (BEAKER) 6.2 gm/dL 6.0-8.3 (test yusa=505) ALBUMIN (BEAKER) (test 3.4 g/dL 3.5-5.0 lrsi=6799) ALKALINE PHOSPHATASE 190 U/L 40-150 (BEAKER) (test kbmc=882) BILIRUBIN TOTAL (BEAKER) 1.9 mg/dL 0.2-1.2 (test ewxj=843) SODIUM (BEAKER) (test 125 meq/L 136-145 pile=764) POTASSIUM (BEAKER) (test 5.0 meq/L 3.5-5.1 efgv=326) CHLORIDE (BEAKER) (test 99 meq/L 98-107 qijd=515) CO2 (BEAKER) (test 19 meq/L 22-29 qjiw=695) BLOOD UREA NITROGEN 36 mg/dL 7-21 (BEAKER) (test tpcu=663) CREATININE (BEAKER) (test 1.65 mg/dL 0.57-1.25 hcwe=428) GLUCOSE RANDOM (BEAKER) 133 mg/dL 70-105 (test nhhs=165) CALCIUM (BEAKER) (test 9.5 mg/dL 8.4-10.2 ceyg=402) AST (SGOT) (BEAKER) (test 23 U/L 5-34 bgld=563) ALT (SGPT) (BEAKER) (test 12 U/L 6-55 pebh=707) EGFR (BEAKER) (test 44 mL/min/1.73 sq m ESTIMATED GFR IS NOT adrv=2876) ACCURATE CREATININE CLEARANCE IN PREDICTING GLOMERULAR FILTRATION RATE. ESTIMATED GFR IS NOT APPLICABLE FOR DIALYSIS PATIENTS. BILIRUBIN, [id number] 13:54:00 Test Item Value Reference Range Comments BILIRUBIN DIRECT (BEAKER) (test eyrc=824) 1.4 mg/dL 0.1-0.5 CBC W/PLT COUNT & AUTO [id number] 13:50:00 Test Item Value Reference Range Comments WHITE BLOOD CELL COUNT (BEAKER) (test ehor=157) 6.8 K/ L 3.5-10.5 RED BLOOD CELL COUNT (BEAKER) (test iigp=533) 3.01 M/ L 4.63-6.08 HEMOGLOBIN (BEAKER) (test ylai=007) 9.5 GM/DL 13.7-17.5 HEMATOCRIT (BEAKER) (test vhcf=294) 28.3 % 40.1-51.0 MEAN CORPUSCULAR VOLUME (BEAKER) (test xurd=208) 94.0 fL 79.0-92.2 MEAN CORPUSCULAR HEMOGLOBIN (BEAKER) (test 31.6 pg 25.7-32.2 vhly=667) MEAN CORPUSCULAR HEMOGLOBIN CONC (BEAKER) (test 33.6 GM/DL 32.3-36.5 pkhj=820) RED CELL DISTRIBUTION WIDTH (BEAKER) (test 14.5 % 11.6-14.4 hpcy=168) PLATELET COUNT (BEAKER) (test ozlo=359) 131 K/CU MM 150-450 MEAN PLATELET VOLUME (BEAKER) (test smjc=664) 9.0 fL 9.4-12.4 NUCLEATED RED BLOOD CELLS (BEAKER) (test 0 /100 WBC 0-0 lccn=207) NEUTROPHILS RELATIVE PERCENT (BEAKER) (test 75 % adqb=023) LYMPHOCYTES RELATIVE PERCENT (BEAKER) (test 7 % uquc=890) MONOCYTES RELATIVE PERCENT (BEAKER) (test 14 % lypr=010) EOSINOPHILS RELATIVE PERCENT (BEAKER) (test 2 % tcvt=973) BASOPHILS RELATIVE PERCENT (BEAKER) (test 0 % seun=645) NEUTROPHILS ABSOLUTE COUNT (BEAKER) (test 5.11 K/ L 1.78-5.38 crsw=690) LYMPHOCYTES ABSOLUTE COUNT (BEAKER) (test 0.50 K/ L 1.32-3.57 ulqw=872) MONOCYTES ABSOLUTE COUNT (BEAKER) (test 0.94 K/ L 0.30-0.82 nzxd=375) EOSINOPHILS ABSOLUTE COUNT (BEAKER) (test 0.12 K/ L 0.04-0.54 ukel=278) BASOPHILS ABSOLUTE COUNT (BEAKER) (test 0.03 K/ L 0.01-0.08 cqfw=225) IMMATURE GRANULOCYTES-RELATIVE PERCENT (BEAKER) 1 % 0-1 (test vkcb=9655) PROTHROMBIN [id number] 13:46:00 Test Item Value Reference Range Comments PROTIME (BEAKER) (test zyip=816) 19.5 seconds 11.7-14.7 INR (BEAKER) (test nknh=870) 1.7 <=5.9 RECOMMENDED COUMADIN/WARFARIN INR THERAPY RANGESSTANDARD DOSE: 2.0 - 3.0 Includes: PROPHYLAXIS forvenous thrombosis, systemic embolization; TREATMENT for venous thrombosis and/or pulmonary embolus.HIGH RISK: Target INR is 2.5-3.5 for patients with mechanical heart valves.BONE AND/OR JOINT IMAGING, WHOLE [id number] 16:45:00FINAL REPORT PROCEDURE: BONE SCAN, WHOLE BODY CPT CODE: 64150 INDICATION: L3 vertebral body lesion follow-up R91.1 [...] with CT Abdomen/Pelvis dated 05/08/2018. Signed: Ashutosh Reid MDReport Verified Date/ Time: 08/05/2018 16:45:34 Reading Location: [address] [address] Reading [facility] NIR, VERTEBROPLASTY THORACIC, [id number] 17:23:00Reason for exam:->T11, T12, L2 compression fracturesAddendum [...] Verified Date/Time: 06/04/2018 17:23:27 Reading Location : [address] Radiology Reading RoomAddendum EndsFINAL REPORT HISTORY: [...] Verified Date/Time: 06/03/2018 17:56:43 Reading Location : [place] [address] Angio Body Reading Room ALPHA FETOPROTEIN (AFP), TUMOR [id number] 15:20:00 Test Item Value Reference Range Comments ALPHA-FETOPROTEIN (BEAKER) (test qmjv=2147) 2.2 ng/mL <10.0 COMPREHENSIVE METABOLIC [id number] 14:54:00 Test Item Value Reference Range Comments TOTAL PROTEIN (BEAKER) 6.5 gm/dL 6.0-8.3 (test kyqd=827) ALBUMIN (BEAKER) (test 3.6 g/dL 3.5-5.0 ohbs=7941) ALKALINE PHOSPHATASE 342 U/L 40-150 (BEAKER) (test jnuw=399) BILIRUBIN TOTAL (BEAKER) 4.2 mg/dL 0.2-1.2 (test bszg=258) SODIUM (BEAKER) (test 128 meq/L 136-145 qsdp=872) POTASSIUM (BEAKER) (test 4.6 meq/L 3.5-5.1 ktdk=265) CHLORIDE (BEAKER) (test 100 meq/L 98-107 ndou=173) CO2 (BEAKER) (test 21 meq/L 22-29 ossf=206) BLOOD UREA NITROGEN 21 mg/dL 7-21 (BEAKER) (test rfzc=026) CREATININE (BEAKER) (test 1.37 mg/dL 0.57-1.25 dmtg=662) GLUCOSE RANDOM (BEAKER) 108 mg/dL 70-105 (test lzwa=395) CALCIUM (BEAKER) (test 9.5 mg/dL 8.4-10.2 blhe=744) AST (SGOT) (BEAKER) (test 25 U/L 5-34 lhid=270) ALT (SGPT) (BEAKER) (test 10 U/L 6-55 wwpj=501) EGFR (BEAKER) (test 54 mL/min/1.73 sq m ESTIMATED GFR IS NOT wmfd=6314) ACCURATE CREATININE CLEARANCE IN PREDICTING GLOMERULAR FILTRATION RATE. ESTIMATED GFR IS NOT APPLICABLE FOR DIALYSIS PATIENTS. Specimen slightly ictericBILIRUBIN, [id number] 14:54:00 Test Item Value Reference Range Comments BILIRUBIN DIRECT (BEAKER) (test rtxt=372) 2.1 mg/dL 0.1-0.5 CBC W/PLT COUNT & AUTO [id number] 14:52:00 Test Item Value Reference Range Comments WHITE BLOOD CELL COUNT (BEAKER) (test yybt=983) 3.9 K/ L 3.5-10.5 RED BLOOD CELL COUNT (BEAKER) (test pctu=600) 2.69 M/ L 4.63-6.08 HEMOGLOBIN (BEAKER) (test jiub=342) 9.1 GM/DL 13.7-17.5 HEMATOCRIT (BEAKER) (test gmix=126) 27.3 % 40.1-51.0 MEAN CORPUSCULAR VOLUME (BEAKER) (test qnio=039) 101.5 fL 79.0-92.2 MEAN CORPUSCULAR HEMOGLOBIN (BEAKER) (test 33.8 pg 25.7-32.2 ryak=908) MEAN CORPUSCULAR HEMOGLOBIN CONC (BEAKER) (test 33.3 GM/DL 32.3-36.5 bdgi=220) RED CELL DISTRIBUTION WIDTH (BEAKER) (test 18.6 % 11.6-14.4 doas=568) PLATELET COUNT (BEAKER) (test ykug=067) 71 K/CU MM 150-450 MEAN PLATELET VOLUME (BEAKER) (test zdvv=940) 9.6 fL 9.4-12.4 NUCLEATED RED BLOOD CELLS (BEAKER) (test 0 /100 WBC 0-0 kknv=656) NEUTROPHILS RELATIVE PERCENT (BEAKER) (test 62 % nlja=919) LYMPHOCYTES RELATIVE PERCENT (BEAKER) (test 16 % rdms=236) MONOCYTES RELATIVE PERCENT (BEAKER) (test 17 % xmvv=043) EOSINOPHILS RELATIVE PERCENT (BEAKER) (test 5 % ioig=247) BASOPHILS RELATIVE PERCENT (BEAKER) (test 0 % ehhi=018) NEUTROPHILS ABSOLUTE COUNT (BEAKER) (test 2.41 K/ L 1.78-5.38 xkge=971) LYMPHOCYTES ABSOLUTE COUNT (BEAKER) (test 0.62 K/ L 1.32-3.57 zmwo=088) MONOCYTES ABSOLUTE COUNT (BEAKER) (test mxgz=223) 0.65 K/ L 0.30-0.82 EOSINOPHILS ABSOLUTE COUNT (BEAKER) (test 0.20 K/ L 0.04-0.54 wbey=225) BASOPHILS ABSOLUTE COUNT (BEAKER) (test gulh=879) 0.01 K/ L 0.01-0.08 IMMATURE GRANULOCYTES-RELATIVE PERCENT (BEAKER) 0 % 0-1 (test mnvj=6043) PROTHROMBIN [id number] 14:50:00 Test Item Value Reference Range Comments PROTIME (BEAKER) (test pjni=705) 19.5 seconds 11.7-14.7 INR (BEAKER) (test gemy=091) 1.7 <=5.9 RECOMMENDED COUMADIN/WARFARIN INR THERAPY RANGESSTANDARD DOSE: 2.0 - 3.0 Includes: PROPHYLAXIS forvenous thrombosis, systemic embolization; TREATMENT for venous thrombosis and/or pulmonary embolus.HIGH RISK: Target INR is 2.5-3.5 for patients with mechanical heart valves.BODY FLUID CULTURE + GRAM [id number] 13:19:00 Test Item Value Reference Range Comments CULTURE (BEAKER) (test phtj=7820) No growth GRAM STAIN RESULT (BEAKER) (test No WBCs veuv=7109) GRAM STAIN RESULT (BEAKER) (test No organisms seen jxlh=46700) [id number] 17:36:00 Test Item Value Reference Range Comments SODIUM (BEAKER) (test ezco=935) 133 meq/L 136-145 POTASSIUM (BEAKER) (test lxlf=435) 3.2 meq/L 3.5-5.1 CHLORIDE (BEAKER) (test ewmu=124) 102 meq/L 98-107 CO2 (BEAKER) (test qeyu=597) 21 meq/L 22-29 [id number] 13:21:00 Test Item Value Reference Range Comments SODIUM (BEAKER) (test awrz=951) 134 meq/L 136-145 POTASSIUM (BEAKER) (test sgyj=089) 3.0 meq/L 3.5-5.1 CHLORIDE (BEAKER) (test trig=339) 103 meq/L 98-107 CO2 (BEAKER) (test oomw=901) 22 meq/L 22-29 CALCIUM, [id number] 04:54:00 Test Item Value Reference Range Comments CALCIUM IONIZED (BEAKER) (test htuf=567) 1.09 mmol/L 1.12-1.27 PH, BLOOD (BEAKER) (test dlbm=4936) 7.35 [id number] 04:04:00 Test Item Value Reference Range Comments PHOSPHORUS (BEAKER) (test swnr=970) 2.4 mg/dL 2.3-4.7 [id number] 04:04:00 Test Item Value Reference Range Comments MAGNESIUM (BEAKER) (test wyoe=426) 2.0 mg/dL 1.6-2.6 HEPATIC FUNCTION [id number] 04:04:00 Test Item Value Reference Range Comments TOTAL PROTEIN (BEAKER) (test crgp=191) 5.8 gm/dL 6.0-8.3 ALBUMIN (BEAKER) (test vkfp=9515) 4.1 g/dL 3.5-5.0 BILIRUBIN TOTAL (BEAKER) (test bhmu=642) 3.9 mg/dL 0.2-1.2 BILIRUBIN DIRECT (BEAKER) (test hplq=889) 2.0 mg/dL 0.1-0.5 ALKALINE PHOSPHATASE (BEAKER) (test cohn=457) 123 U/L 40-150 AST (SGOT) (BEAKER) (test wktx=978) 14 U/L 5-34 ALT (SGPT) (BEAKER) (test xaib=349) < U/L 6-55 Specimen slightly ictericCOMPREHENSIVE METABOLIC [id number] 04:04:00 Test Item Value Reference Range Comments TOTAL PROTEIN (BEAKER) 5.8 gm/dL 6.0-8.3 (test jjbz=867) ALBUMIN (BEAKER) (test 4.1 g/dL 3.5-5.0 bykc=8131) ALKALINE PHOSPHATASE 123 U/L 40-150 (BEAKER) (test yvat=057) BILIRUBIN TOTAL (BEAKER) 3.9 mg/dL 0.2-1.2 (test qphc=417) SODIUM (BEAKER) (test 135 meq/L 136-145 lvit=891) POTASSIUM (BEAKER) (test 2.9 meq/L 3.5-5.1 kteh=784) CHLORIDE (BEAKER) (test 103 meq/L 98-107 lshq=366) CO2 (BEAKER) (test 21 meq/L 22-29 ripe=167) BLOOD UREA NITROGEN 18 mg/dL 7-21 (BEAKER) (test rnjb=493) CREATININE (BEAKER) (test 1.32 mg/dL 0.57-1.25 lpbe=607) GLUCOSE RANDOM (BEAKER) 126 mg/dL 70-105 (test tqok=239) CALCIUM (BEAKER) (test 9.8 mg/dL 8.4-10.2 yswv=904) AST (SGOT) (BEAKER) (test 14 U/L 5-34 drrz=677) ALT (SGPT) (BEAKER) (test < U/L 6-55 iwyx=918) EGFR (BEAKER) (test 57 mL/min/1.73 sq m ESTIMATED GFR IS NOT dpaq=0417) ACCURATE CREATININE CLEARANCE IN PREDICTING GLOMERULAR FILTRATION RATE. ESTIMATED GFR IS NOT APPLICABLE FOR DIALYSIS PATIENTS. Specimen slightly ictericPROTHROMBIN [id number] 04:02:00 Test Item Value Reference Range Comments PROTIME (BEAKER) (test gibh=316) 25.1 seconds 11.7-14.7 INR (BEAKER) (test uiwx=225) 2.3 <=5.9 RECOMMENDED COUMADIN/WARFARIN INR THERAPY RANGESSTANDARD DOSE: 2.0 - 3.0 Includes: PROPHYLAXIS forvenous thrombosis, systemic embolization; TREATMENT for venous thrombosis and/or pulmonary embolus.HIGH RISK: Target INR is 2.5-3.5 for patients with mechanical heart valves.CBC W/PLT COUNT & AUTO [id number] 03:55:00 Test Item Value Reference Range Comments WHITE BLOOD CELL COUNT (BEAKER) (test ozsf=510) 3.6 K/ L 3.5-10.5 RED BLOOD CELL COUNT (BEAKER) (test kyvi=554) 2.48 M/ L 4.63-6.08 HEMOGLOBIN (BEAKER) (test qwmi=741) 7.9 GM/DL 13.7-17.5 HEMATOCRIT (BEAKER) (test qgjj=701) 23.7 % 40.1-51.0 MEAN CORPUSCULAR VOLUME (BEAKER) (test jcpt=127) 95.6 fL 79.0-92.2 MEAN CORPUSCULAR HEMOGLOBIN (BEAKER) (test 31.9 pg 25.7-32.2 yybz=157) MEAN CORPUSCULAR HEMOGLOBIN CONC (BEAKER) (test 33.3 GM/DL 32.3-36.5 rsra=502) RED CELL DISTRIBUTION WIDTH (BEAKER) (test 18.8 % 11.6-14.4 mwod=163) PLATELET COUNT (BEAKER) (test mctn=862) 38 K/CU MM 150-450 MEAN PLATELET VOLUME (BEAKER) (test oxrw=010) 9.3 fL 9.4-12.4 NUCLEATED RED BLOOD CELLS (BEAKER) (test 0 /100 WBC 0-0 jmfp=456) NEUTROPHILS RELATIVE PERCENT (BEAKER) (test 57 % dawm=517) LYMPHOCYTES RELATIVE PERCENT (BEAKER) (test 15 % njod=013) MONOCYTES RELATIVE PERCENT (BEAKER) (test 22 % kbre=418) EOSINOPHILS RELATIVE PERCENT (BEAKER) (test 4 % hqwt=095) BASOPHILS RELATIVE PERCENT (BEAKER) (test 0 % roaw=711) NEUTROPHILS ABSOLUTE COUNT (BEAKER) (test 2.09 K/ L 1.78-5.38 sgsz=960) LYMPHOCYTES ABSOLUTE COUNT (BEAKER) (test 0.54 K/ L 1.32-3.57 xspe=053) MONOCYTES ABSOLUTE COUNT (BEAKER) (test tilz=190) 0.81 K/ L 0.30-0.82 EOSINOPHILS ABSOLUTE COUNT (BEAKER) (test 0.15 K/ L 0.04-0.54 aikh=188) BASOPHILS ABSOLUTE COUNT (BEAKER) (test jhdu=331) 0.01 K/ L 0.01-0.08 IMMATURE GRANULOCYTES-RELATIVE PERCENT (BEAKER) 1 % 0-1 (test fbfs=5290) [id number] 18:07:00 Test Item Value Reference Range Comments SODIUM (BEAKER) (test ctff=442) 132 meq/L 136-145 POTASSIUM (BEAKER) (test 2.9 meq/L 3.5-5.1 Specimen slightly hemolyzed iazu=805) CHLORIDE (BEAKER) (test 101 meq/L 98-107 wddm=142) CO2 (BEAKER) (test uyfz=509) 18 meq/L 22-29 LACTIC ACID, VENOUS, WHOLE [id number] 16:43:00 Test Item Value Reference Range Comments LACTATE BLOOD VENOUS (2) 1.6 mmol/L 0.5-2.2 Specimen slightly hemolyzed (BEAKER) (test cney=7070) Effective 02/28/2016: Units/Reference Range ChangeNew: 0.5-2.2 mmol/L Previous: 5 -20 mg/dLSpecimen slightly ictericBODY FLUID CULTURE + GRAM [id number] 12: 08:00 Test Item Value Reference Range Comments CULTURE (BEAKER) (test lqmx=7399) No growth GRAM STAIN RESULT (BEAKER) (test <1+ WBCs xchz=5515) GRAM STAIN RESULT (BEAKER) (test No organisms seen kvig=26609) [id number] 08:10:00 Test Item Value Reference Range Comments PHOSPHORUS (BEAKER) (test erap=582) 2.8 mg/dL 2.3-4.7 [id number] 08:10:00 Test Item Value Reference Range Comments MAGNESIUM (BEAKER) (test dfcl=086) 2.2 mg/dL 1.6-2.6 COMPREHENSIVE METABOLIC [id number] 08:10:00 Test Item Value Reference Range Comments TOTAL PROTEIN (BEAKER) 6.2 gm/dL 6.0-8.3 (test ajcg=284) ALBUMIN (BEAKER) (test 4.4 g/dL 3.5-5.0 vbaa=6574) ALKALINE PHOSPHATASE 121 U/L 40-150 (BEAKER) (test zvzg=767) BILIRUBIN TOTAL (BEAKER) 4.4 mg/dL 0.2-1.2 (test jofb=385) SODIUM (BEAKER) (test 135 meq/L 136-145 flfu=266) POTASSIUM (BEAKER) (test 2.8 meq/L 3.5-5.1 sppk=152) CHLORIDE (BEAKER) (test 102 meq/L 98-107 trzt=996) CO2 (BEAKER) (test 21 meq/L 22-29 mwwe=484) BLOOD UREA NITROGEN 20 mg/dL 7-21 (BEAKER) (test uaop=191) CREATININE (BEAKER) (test 1.34 mg/dL 0.57-1.25 enrd=356) GLUCOSE RANDOM (BEAKER) 132 mg/dL 70-105 (test misa=220) CALCIUM (BEAKER) (test 10.0 mg/dL 8.4-10.2 fwah=490) AST (SGOT) (BEAKER) (test 16 U/L 5-34 niad=254) ALT (SGPT) (BEAKER) (test 6 U/L 6-55 pcat=672) EGFR (BEAKER) (test 56 mL/min/1.73 sq m ESTIMATED GFR IS NOT rnni=3223) ACCURATE CREATININE CLEARANCE IN PREDICTING GLOMERULAR FILTRATION RATE. ESTIMATED GFR IS NOT APPLICABLE FOR DIALYSIS PATIENTS. Specimen slightly ictericHEPATIC FUNCTION [id number] 08:10:00 Test Item Value Reference Range Comments TOTAL PROTEIN (BEAKER) (test enwh=017) 6.2 gm/dL 6.0-8.3 ALBUMIN (BEAKER) (test tzim=2197) 4.4 g/dL 3.5-5.0 BILIRUBIN TOTAL (BEAKER) (test utbt=783) 4.4 mg/dL 0.2-1.2 BILIRUBIN DIRECT (BEAKER) (test acgb=669) 1.9 mg/dL 0.1-0.5 ALKALINE PHOSPHATASE (BEAKER) (test mcrn=679) 121 U/L 40-150 AST (SGOT) (BEAKER) (test zrjk=736) 16 U/L 5-34 ALT (SGPT) (BEAKER) (test zsij=017) 6 U/L 6-55 Specimen slightly ictericCALCIUM, [id number] 07:20:00 Test Item Value Reference Range Comments CALCIUM IONIZED (BEAKER) (test agos=960) 1.01 mmol/L 1.12-1.27 PH, BLOOD (BEAKER) (test chlq=5598) 7.49 CBC W/PLT COUNT & AUTO [id number] 06:59:00 Test Item Value Reference Range Comments WHITE BLOOD CELL COUNT (BEAKER) (test gmul=376) 4.1 K/ L 3.5-10.5 RED BLOOD CELL COUNT (BEAKER) (test omfy=197) 2.62 M/ L 4.63-6.08 HEMOGLOBIN (BEAKER) (test ozne=836) 8.2 GM/DL 13.7-17.5 HEMATOCRIT (BEAKER) (test mchh=904) 24.9 % 40.1-51.0 MEAN CORPUSCULAR VOLUME (BEAKER) (test luld=534) 95.0 fL 79.0-92.2 MEAN CORPUSCULAR HEMOGLOBIN (BEAKER) (test 31.3 pg 25.7-32.2 tlws=808) MEAN CORPUSCULAR HEMOGLOBIN CONC (BEAKER) (test 32.9 GM/DL 32.3-36.5 fsnu=888) RED CELL DISTRIBUTION WIDTH (BEAKER) (test 18.6 % 11.6-14.4 peuj=707) PLATELET COUNT (BEAKER) (test bjiq=176) 38 K/CU MM 150-450 MEAN PLATELET VOLUME (BEAKER) (test jono=795) 9.3 fL 9.4-12.4 NUCLEATED RED BLOOD CELLS (BEAKER) (test 0 /100 WBC 0-0 cfpk=076) NEUTROPHILS RELATIVE PERCENT (BEAKER) (test 66 % iram=820) LYMPHOCYTES RELATIVE PERCENT (BEAKER) (test 12 % dvxn=542) MONOCYTES RELATIVE PERCENT (BEAKER) (test 18 % ebvo=413) EOSINOPHILS RELATIVE PERCENT (BEAKER) (test 3 % orly=704) BASOPHILS RELATIVE PERCENT (BEAKER) (test 1 % otfl=701) NEUTROPHILS ABSOLUTE COUNT (BEAKER) (test 2.74 K/ L 1.78-5.38 qjlx=370) LYMPHOCYTES ABSOLUTE COUNT (BEAKER) (test 0.49 K/ L 1.32-3.57 mnpb=266) MONOCYTES ABSOLUTE COUNT (BEAKER) (test mchv=769) 0.75 K/ L 0.30-0.82 EOSINOPHILS ABSOLUTE COUNT (BEAKER) (test 0.11 K/ L 0.04-0.54 xmxv=986) BASOPHILS ABSOLUTE COUNT (BEAKER) (test khzx=189) 0.02 K/ L 0.01-0.08 IMMATURE GRANULOCYTES-RELATIVE PERCENT (BEAKER) 1 % 0-1 (test kuly=5590) PROTHROMBIN [id number] 06:56:00 Test Item Value Reference Range Comments PROTIME (BEAKER) (test pwer=069) 24.5 seconds 11.7-14.7 INR (BEAKER) (test ykka=656) 2.2 <=5.9 RECOMMENDED COUMADIN/WARFARIN INR THERAPY RANGESSTANDARD DOSE: 2.0 - 3.0 Includes: PROPHYLAXIS forvenous thrombosis, systemic embolization; TREATMENT for venous thrombosis and/or pulmonary embolus.HIGH RISK: Target INR is 2.5-3.5 for patients with mechanical heart valves.BODY FLUID CELL COUNT WITH [id number] 18:36:00 Test Item Value Reference Range Comments APPEARANCE FLUID (BEAKER) (test gxmt=733) Hazy Clear COLOR FLUID (BEAKER) (test mrja=829) Yellow Colorless, Straw RBC FLUID (BEAKER) (test xurf=721) 2000 /cu mm <=1 ADJUSTED WBC FLUID (BEAKER) (test yfmr=4058) 96 /cu mm <=5 LINING CELLS (BEAKER) (test svfr=4946) 2 /cu mm <=1 NEUTROPHILS FLUID (BEAKER) (test qoea=2635) 4 % LYMPHS FLUID (BEAKER) (test hqtx=764) 11 % MONO/MACROPHAGE FLUID (BEAKER) (test veto=243) 85 % EOSINOPHILS FLUID (BEAKER) (test sawj=059) 0 % BASO FLUID (BEAKER) (test tbgo=909) 0 % CONTAINER BODY FLUID (BEAKER) (test uysy=8224) EDTA Tube U/S, [id number] 12:49:00Limit to 4L due to AKIReason for exam:-> ascitesFINAL REPORT Indication: Ascites. Technique: Ultrasound guided paracentesis. Findings:Preliminary ultrasound confirms ascites. A safe window was identified in the midline (suprapubic). The procedure was explained to the patient and informed consent was signed. The skin was marked and prepped in standard sterile fashion. 2% lidocaine was used for local anesthesia. A 5 Polish needle catheter system was advanced into the peritoneal space. 3300 cc clear yellow fluid was taken off.Sample of the fluid was sent to the laboratory. Patient tolerated the procedure well. Impression: Ultrasound guided paracentesis. Signed: Jono Xiong MDReport Verified Date/ Time: 05/13/2018 12:49:12 Reading Location: [facility] [id number] Ultrasound Reading Room 12: 49 PMCALCIUM, [id number] 05:29:00 Test Item Value Reference Range Comments CALCIUM IONIZED (BEAKER) (test bpco=446) 1.10 mmol/L 1.12-1.27 PH, BLOOD (BEAKER) (test wnni=0351) 7.35 B-TYPE NATRIURETIC FACTOR (BNP)2018-05-13 04:48:00 Test Item Value Reference Range Comments B-TYPE NATRIURETIC PEPTIDE (BEAKER) (test 274 pg/mL 0-100 ewuo=618) [id number] 04:44:00 Test Item Value Reference Range Comments PHOSPHORUS (BEAKER) (test iuth=969) 3.0 mg/dL 2.3-4.7 [id number] 04:44:00 Test Item Value Reference Range Comments MAGNESIUM (BEAKER) (test ykam=783) 2.0 mg/dL 1.6-2.6 COMPREHENSIVE METABOLIC [id number] 04:44:00 Test Item Value Reference Range Comments TOTAL PROTEIN (BEAKER) 6.2 gm/dL 6.0-8.3 (test rnjy=613) ALBUMIN (BEAKER) (test 4.3 g/dL 3.5-5.0 wphz=9761) ALKALINE PHOSPHATASE 134 U/L 40-150 (BEAKER) (test rjwz=655) BILIRUBIN TOTAL (BEAKER) 4.4 mg/dL 0.2-1.2 (test rmgj=363) SODIUM (BEAKER) (test 131 meq/L 136-145 ydqf=914) POTASSIUM (BEAKER) (test 3.7 meq/L 3.5-5.1 kojy=553) CHLORIDE (BEAKER) (test 96 meq/L 98-107 joqd=548) CO2 (BEAKER) (test 26 meq/L 22-29 pqcj=719) BLOOD UREA NITROGEN 20 mg/dL 7-21 (BEAKER) (test uwvg=198) CREATININE (BEAKER) (test 1.60 mg/dL 0.57-1.25 wdof=164) GLUCOSE RANDOM (BEAKER) 149 mg/dL 70-105 (test sglh=979) CALCIUM (BEAKER) (test 10.0 mg/dL 8.4-10.2 jnbz=335) AST (SGOT) (BEAKER) (test 18 U/L 5-34 tkqr=287) ALT (SGPT) (BEAKER) (test 7 U/L 6-55 axic=498) EGFR (BEAKER) (test 46 mL/min/1.73 sq m ESTIMATED GFR IS NOT ksqb=2858) ACCURATE CREATININE CLEARANCE IN PREDICTING GLOMERULAR FILTRATION RATE. ESTIMATED GFR IS NOT APPLICABLE FOR DIALYSIS PATIENTS. Specimen slightly ictericHEPATIC FUNCTION [id number] 04:44:00 Test Item Value Reference Range Comments TOTAL PROTEIN (BEAKER) (test efop=862) 6.2 gm/dL 6.0-8.3 ALBUMIN (BEAKER) (test nlfs=7002) 4.3 g/dL 3.5-5.0 BILIRUBIN TOTAL (BEAKER) (test ealu=611) 4.4 mg/dL 0.2-1.2 BILIRUBIN DIRECT (BEAKER) (test dsdn=553) 2.4 mg/dL 0.1-0.5 ALKALINE PHOSPHATASE (BEAKER) (test xmyt=277) 134 U/L 40-150 AST (SGOT) (BEAKER) (test kuax=630) 18 U/L 5-34 ALT (SGPT) (BEAKER) (test zbht=565) 7 U/L 6-55 Specimen slightly ictericPROTHROMBIN [id number] 04:30:00 Test Item Value Reference Range Comments PROTIME (BEAKER) (test ypkn=010) 23.8 seconds 11.7-14.7 INR (BEAKER) (test gryf=253) 2.1 <=5.9 RECOMMENDED COUMADIN/WARFARIN INR THERAPY RANGESSTANDARD DOSE: 2.0 - 3.0 Includes: PROPHYLAXIS forvenous thrombosis, systemic embolization; TREATMENT for venous thrombosis and/or pulmonary embolus.HIGH RISK: Target INR is 2.5-3.5 for patients with mechanical heart valves.CBC W/PLT COUNT & AUTO [id number] 04:19:00 Test Item Value Reference Range Comments WHITE BLOOD CELL COUNT (BEAKER) (test vioz=763) 4.0 K/ L 3.5-10.5 RED BLOOD CELL COUNT (BEAKER) (test zjfa=471) 2.60 M/ L 4.63-6.08 HEMOGLOBIN (BEAKER) (test sfik=172) 8.2 GM/DL 13.7-17.5 HEMATOCRIT (BEAKER) (test vzez=891) 24.6 % 40.1-51.0 MEAN CORPUSCULAR VOLUME (BEAKER) (test btyb=558) 94.6 fL 79.0-92.2 MEAN CORPUSCULAR HEMOGLOBIN (BEAKER) (test 31.5 pg 25.7-32.2 qoen=725) MEAN CORPUSCULAR HEMOGLOBIN CONC (BEAKER) (test 33.3 GM/DL 32.3-36.5 gcno=980) RED CELL DISTRIBUTION WIDTH (BEAKER) (test 18.1 % 11.6-14.4 vquc=019) PLATELET COUNT (BEAKER) (test cdaw=126) 46 K/CU MM 150-450 MEAN PLATELET VOLUME (BEAKER) (test ufno=595) 9.1 fL 9.4-12.4 NUCLEATED RED BLOOD CELLS (BEAKER) (test 0 /100 WBC 0-0 tthq=974) NEUTROPHILS RELATIVE PERCENT (BEAKER) (test 62 % iexn=685) LYMPHOCYTES RELATIVE PERCENT (BEAKER) (test 13 % heum=180) MONOCYTES RELATIVE PERCENT (BEAKER) (test 21 % jqax=944) EOSINOPHILS RELATIVE PERCENT (BEAKER) (test 3 % oclb=673) BASOPHILS RELATIVE PERCENT (BEAKER) (test 0 % cvje=243) NEUTROPHILS ABSOLUTE COUNT (BEAKER) (test 2.49 K/ L 1.78-5.38 lroi=407) LYMPHOCYTES ABSOLUTE COUNT (BEAKER) (test 0.53 K/ L 1.32-3.57 xslx=534) MONOCYTES ABSOLUTE COUNT (BEAKER) (test tifh=773) 0.86 K/ L 0.30-0.82 EOSINOPHILS ABSOLUTE COUNT (BEAKER) (test 0.10 K/ L 0.04-0.54 xmsj=933) BASOPHILS ABSOLUTE COUNT (BEAKER) (test gehx=723) 0.01 K/ L 0.01-0.08 IMMATURE GRANULOCYTES-RELATIVE PERCENT (BEAKER) 1 % 0-1 (test qytq=2285) TISSUE [id number] 14:55:00Surgical Pathology Report Case: [id number] Authorizing Provider: Karina Rian MD Collected: 05/08/20181999 Ordering Location: [address] Received: 05/11/2018 0837 Service Pathologist: Jesús Craig MD Specimen: Bone L3 VERTEBRAL BODYBONE BIOPSY:BONE AND BONE MARROW, NEGATIVE FOR MALIGNANCY.SEE DIAGNOSTIC COMMENT. Signing Pathologist Direct Phone Line: [phone] signed by Jesús Craig MD on 05/12/2018 [...] case was discussed with Dr. Andrea Mason, elementary teacher.[id number], [id number], [id number], [id number] fracture of body thoracic vertebralL3 vertebral body [...] and its performance characteristics determined by [facility], Pathology Laboratory. It has not been cleared [...] clinical laboratory testing.RAD, CHEST, 1 VIEW, NON [id number] 13:56:00Reason for exam:->edemaShould this be performed at the bedside?->YesFINAL REPORT Chest one view compared to December 30 Discussion: Ill-defined bilateral airspace opacities are worse since the previous study although this may reflect a lesser inspiratory effort. No gross effusion or pneumothorax. Signed: Karina Pugh Verified Date/Time : 05/12/2018 13:56:44 Reading Location: [address] Consult Reading Room CALCIUM, [id number] 06:58:00 Test Item Value Reference Range Comments CALCIUM IONIZED (BEAKER) (test gcfo=470) 1.11 mmol/L 1.12-1.27 PH, BLOOD (BEAKER) (test hmzo=7646) 7.36 [id number] 06:31:00 Test Item Value Reference Range Comments PHOSPHORUS (BEAKER) (test ymrv=103) 2.9 mg/dL 2.3-4.7 [id number] 06:31:00 Test Item Value Reference Range Comments MAGNESIUM (BEAKER) (test atli=056) 1.9 mg/dL 1.6-2.6 COMPREHENSIVE METABOLIC [id number] 06:31:00 Test Item Value Reference Range Comments TOTAL PROTEIN (BEAKER) 5.8 gm/dL 6.0-8.3 (test eaqf=468) ALBUMIN (BEAKER) (test 4.0 g/dL 3.5-5.0 pqyy=0327) ALKALINE PHOSPHATASE 124 U/L 40-150 (BEAKER) (test ajlg=153) BILIRUBIN TOTAL (BEAKER) 4.3 mg/dL 0.2-1.2 (test rpcw=637) SODIUM (BEAKER) (test 128 meq/L 136-145 wmsi=222) POTASSIUM (BEAKER) (test 3.9 meq/L 3.5-5.1 nfcq=450) CHLORIDE (BEAKER) (test 92 meq/L 98-107 flgq=890) CO2 (BEAKER) (test 26 meq/L 22-29 odfp=436) BLOOD UREA NITROGEN 21 mg/dL 7-21 (BEAKER) (test ltmg=728) CREATININE (BEAKER) (test 1.54 mg/dL 0.57-1.25 rgds=006) GLUCOSE RANDOM (BEAKER) 113 mg/dL 70-105 (test qiqv=858) CALCIUM (BEAKER) (test 9.5 mg/dL 8.4-10.2 nlye=291) AST (SGOT) (BEAKER) (test 16 U/L 5-34 ytxx=991) ALT (SGPT) (BEAKER) (test 6 U/L 6-55 lvsu=062) EGFR (BEAKER) (test 48 mL/min/1.73 sq m ESTIMATED GFR IS NOT czys=0974) ACCURATE CREATININE CLEARANCE IN PREDICTING GLOMERULAR FILTRATION RATE. ESTIMATED GFR IS NOT APPLICABLE FOR DIALYSIS PATIENTS. Specimen slightly ictericHEPATIC FUNCTION [id number] 06:31:00 Test Item Value Reference Range Comments TOTAL PROTEIN (BEAKER) (test kdyl=463) 5.8 gm/dL 6.0-8.3 ALBUMIN (BEAKER) (test xquz=4886) 4.0 g/dL 3.5-5.0 BILIRUBIN TOTAL (BEAKER) (test xepr=192) 4.3 mg/dL 0.2-1.2 BILIRUBIN DIRECT (BEAKER) (test xweb=827) 2.3 mg/dL 0.1-0.5 ALKALINE PHOSPHATASE (BEAKER) (test hahp=876) 124 U/L 40-150 AST (SGOT) (BEAKER) (test udot=902) 16 U/L 5-34 ALT (SGPT) (BEAKER) (test ooxa=811) 6 U/L 6-55 Specimen slightly ictericPROTHROMBIN [id number] 06:16:00 Test Item Value Reference Range Comments PROTIME (BEAKER) (test gllf=209) 22.3 seconds 11.7-14.7 INR (BEAKER) (test qsjf=454) 2.0 <=5.9 RECOMMENDED COUMADIN/WARFARIN INR THERAPY RANGESSTANDARD DOSE: 2.0 - 3.0 Includes: PROPHYLAXIS forvenous thrombosis, systemic embolization; TREATMENT for venous thrombosis and/or pulmonary embolus.HIGH RISK: Target INR is 2.5-3.5 for patients with mechanical heart valves.CBC W/PLT COUNT & AUTO [id number] 06:00:00 Test Item Value Reference Range Comments WHITE BLOOD CELL COUNT (BEAKER) (test pemn=019) 4.3 K/ L 3.5-10.5 RED BLOOD CELL COUNT (BEAKER) (test qlut=917) 2.68 M/ L 4.63-6.08 HEMOGLOBIN (BEAKER) (test mhua=340) 8.3 GM/DL 13.7-17.5 HEMATOCRIT (BEAKER) (test tvbj=114) 25.0 % 40.1-51.0 MEAN CORPUSCULAR VOLUME (BEAKER) (test hqlc=764) 93.3 fL 79.0-92.2 MEAN CORPUSCULAR HEMOGLOBIN (BEAKER) (test 31.0 pg 25.7-32.2 ngmg=380) MEAN CORPUSCULAR HEMOGLOBIN CONC (BEAKER) (test 33.2 GM/DL 32.3-36.5 zuoo=230) RED CELL DISTRIBUTION WIDTH (BEAKER) (test 17.4 % 11.6-14.4 kzmc=677) PLATELET COUNT (BEAKER) (test hgbc=203) 57 K/CU MM 150-450 MEAN PLATELET VOLUME (BEAKER) (test djeg=598) 9.3 fL 9.4-12.4 NUCLEATED RED BLOOD CELLS (BEAKER) (test 0 /100 WBC 0-0 wyrs=137) NEUTROPHILS RELATIVE PERCENT (BEAKER) (test 61 % zwvl=573) LYMPHOCYTES RELATIVE PERCENT (BEAKER) (test 14 % lrpn=100) MONOCYTES RELATIVE PERCENT (BEAKER) (test 17 % fxfa=235) EOSINOPHILS RELATIVE PERCENT (BEAKER) (test 7 % iddn=843) BASOPHILS RELATIVE PERCENT (BEAKER) (test 1 % pkya=327) NEUTROPHILS ABSOLUTE COUNT (BEAKER) (test 2.62 K/ L 1.78-5.38 amng=036) LYMPHOCYTES ABSOLUTE COUNT (BEAKER) (test 0.59 K/ L 1.32-3.57 cceo=701) MONOCYTES ABSOLUTE COUNT (BEAKER) (test ltyb=439) 0.73 K/ L 0.30-0.82 EOSINOPHILS ABSOLUTE COUNT (BEAKER) (test 0.29 K/ L 0.04-0.54 npdf=158) BASOPHILS ABSOLUTE COUNT (BEAKER) (test nylo=500) 0.02 K/ L 0.01-0.08 IMMATURE GRANULOCYTES-RELATIVE PERCENT (BEAKER) 1 % 0-1 (test iqpj=2062) BLOOD [id number] 00:00:00 Test Item Value Reference Range Comments CULTURE (BEAKER) (test snpw=8329) No growth in 5 days BLOOD [id number] 00:00:00 Test Item Value Reference Range Comments CULTURE (BEAKER) (test mugx=7191) No growth in 5 days OSMOLALITY, [id number] 18:16:00 Test Item Value Reference Range Comments OSMOLALITY URINE (BEAKER) (test uadi=376) 312 mOsm/kg 40-1400 BODY FLUID CELL COUNT WITH [id number] 17:17:00 Test Item Value Reference Range Comments APPEARANCE FLUID (BEAKER) (test ancr=121) Clear Clear COLOR FLUID (BEAKER) (test pdbq=257) Yellow Colorless, Straw RBC FLUID (BEAKER) (test dqmp=322) 150 /cu mm <=1 ADJUSTED WBC FLUID (BEAKER) (test feia=2215) 72 /cu mm <=5 LINING CELLS (BEAKER) (test fpdk=2402) 2 /cu mm <=1 NEUTROPHILS FLUID (BEAKER) (test vfmo=9916) 3 % LYMPHS FLUID (BEAKER) (test wtrb=298) 28 % MONO/MACROPHAGE FLUID (BEAKER) (test qizc=514) 68 % EOSINOPHILS FLUID (BEAKER) (test jfoj=103) 1 % BASO FLUID (BEAKER) (test nzap=629) 0 % CONTAINER BODY FLUID (BEAKER) (test uevx=3836) EDTA Tube SODIUM, RANDOM [id number] 17:09:00 Test Item Value Reference Range Comments SODIUM URINE (BEAKER) (test pvgo=533) < meq/L Reference Range: No NormalsURINALYSIS W/ [id number] 17:08:00 Test Item Value Reference Range Comments COLOR (BEAKER) (test eunl=479) Yellow CLARITY (BEAKER) (test vxvg=964) Clear SPECIFIC GRAVITY UA (BEAKER) (test evln=118) 1.012 1.001-1.035 PH UA (BEAKER) (test bsgc=634) 5.5 5.0-8.0 PROTEIN UA (BEAKER) (test ejbj=125) Negative Negative GLUCOSE UA (BEAKER) (test mxdg=463) Negative Negative KETONES UA (BEAKER) (test telx=312) Negative Negative BILIRUBIN UA (BEAKER) (test qwcs=636) Negative Negative BLOOD UA (BEAKER) (test lxqc=817) Negative Negative NITRITE UA (BEAKER) (test hykc=337) Negative Negative LEUKOCYTE ESTERASE UA (BEAKER) (test isvy=019) Negative Negative UROBILINOGEN UA (BEAKER) (test aqeo=294) 2.0 mg/dL 0.2-1.0 RBC UA (BEAKER) (test ogkl=883) 0 /HPF WBC UA (BEAKER) (test cuum=188) 1 /HPF MUCUS (BEAKER) (test nkee=4516) Rare HYALINE CASTS (BEAKER) (test eskx=127) 15 /LPF SOURCE(BEAKER) (test swjt=3702) CREATININE, RANDOM [id number] 17:05:00 Test Item Value Reference Range Comments CREATININE URINE (BEAKER) (test mrex=015) 116.1 mg/dL Reference Range: No NormalsPROTEIN, RANDOM [id number] 17:05:00 Test Item Value Reference Range Comments PROTEIN, URINE (BEAKER) (test zvjx=9805) 7 mg/dL 0-14 RAD, SPINE, THORACIC, 2 [id number] 13:53:00Reason for exam:->back pain, s/p kyphoplastyFINAL REPORT [...] disc space is relatively maintained. Signed: Jono Xiong Verified Date/Time: 13:53:06 Reading Location: [facility] Mammo Reading Room RAD, SPINE, LUMBAR, 2 OR 3 [id number] 13:53:00Reason for exam:->back pain, s/p kyphoplastyFINAL REPORT [...] disc space is relatively maintained. Signed: Jono XiongLensX Lasers Verified Date/Time: 13:53:06 Reading Location: [facility] Mammo Reading Room U/S, [id number] 12:52:00Limit to 4L due to AKIReason for exam:-> ascitesShould this be performed at the bedside?->NoFINAL REPORT Ultrasound guided paracentesis, 05/11/2018. Clinical History: Ascites. Sedation: None. Life Enrichment Assistant: Elle. Freight Loading Supervisor: None. Estimated Blood Loss: < 1 [...] was achieved with 1% lidocaine, a 5 Polish one-step catheter was advanced into the peritoneal cavity under ultrasound guidance. After completion of drainage, the catheter was removed. There was no evidence of complication. Patient Disposition: The patient was discharged from the ultrasound department after the paracentesis, in good condition. Impression: Successful ultrasound guided paracentesis. Signed: Vinny Almeida Verified Date/Time: 05/11/2018 12:52:57 Reading Location: [facility] B1 P006J Ultrasound Reading Room MISCELLANEOUS LAB [id number] 10:45:00 Test Item Value Reference Range Comments SCAN RESULT (test [id number]=[id number]) [id number] 07:31:00 Test Item Value Reference Range Comments PHOSPHORUS (BEAKER) (test rina=447) 2.7 mg/dL 2.3-4.7 [id number] 07:31:00 Test Item Value Reference Range Comments MAGNESIUM (BEAKER) (test bzcm=015) 1.8 mg/dL 1.6-2.6 COMPREHENSIVE METABOLIC [id number] 07:31:00 Test Item Value Reference Range Comments TOTAL PROTEIN (BEAKER) 5.5 gm/dL 6.0-8.3 (test nlsp=587) ALBUMIN (BEAKER) (test 3.5 g/dL 3.5-5.0 hzqe=6346) ALKALINE PHOSPHATASE 118 U/L 40-150 (BEAKER) (test kjbt=425) BILIRUBIN TOTAL (BEAKER) 5.1 mg/dL 0.2-1.2 (test kcam=418) SODIUM (BEAKER) (test 123 meq/L 136-145 unhm=281) POTASSIUM (BEAKER) (test 4.1 meq/L 3.5-5.1 kaei=985) CHLORIDE (BEAKER) (test 91 meq/L 98-107 tasu=795) CO2 (BEAKER) (test 25 meq/L 22-29 vvau=567) BLOOD UREA NITROGEN 21 mg/dL 7-21 (BEAKER) (test pozj=282) CREATININE (BEAKER) (test 1.59 mg/dL 0.57-1.25 qzlx=286) GLUCOSE RANDOM (BEAKER) 121 mg/dL 70-105 (test uths=022) CALCIUM (BEAKER) (test 9.4 mg/dL 8.4-10.2 xfdo=338) AST (SGOT) (BEAKER) (test 17 U/L 5-34 hzkh=058) ALT (SGPT) (BEAKER) (test 8 U/L 6-55 rlcy=103) EGFR (BEAKER) (test 46 mL/min/1.73 sq m ESTIMATED GFR IS NOT ngwj=6906) ACCURATE CREATININE CLEARANCE IN PREDICTING GLOMERULAR FILTRATION RATE. ESTIMATED GFR IS NOT APPLICABLE FOR DIALYSIS PATIENTS. Specimen moderately ictericHEPATIC FUNCTION [id number] 07:31:00 Test Item Value Reference Range Comments TOTAL PROTEIN (BEAKER) (test gvou=841) 5.5 gm/dL 6.0-8.3 ALBUMIN (BEAKER) (test csiz=1395) 3.5 g/dL 3.5-5.0 BILIRUBIN TOTAL (BEAKER) (test ocxl=014) 5.1 mg/dL 0.2-1.2 BILIRUBIN DIRECT (BEAKER) (test eswd=319) 2.3 mg/dL 0.1-0.5 ALKALINE PHOSPHATASE (BEAKER) (test aayp=981) 118 U/L 40-150 AST (SGOT) (BEAKER) (test evnv=552) 17 U/L 5-34 ALT (SGPT) (BEAKER) (test grey=524) 8 U/L 6-55 Specimen moderately ictericPROTHROMBIN [id number] 07:17:00 Test Item Value Reference Range Comments PROTIME (BEAKER) (test yyzg=057) 23.8 seconds 11.7-14.7 INR (BEAKER) (test lhsl=168) 2.1 <=5.9 RECOMMENDED COUMADIN/WARFARIN INR THERAPY RANGESSTANDARD DOSE: 2.0 - 3.0 Includes: PROPHYLAXIS forvenous thrombosis, systemic embolization; TREATMENT for venous thrombosis and/or pulmonary embolus.HIGH RISK: Target INR is 2.5-3.5 for patients with mechanical heart valves.CBC W/PLT COUNT & AUTO [id number] 07:15:00 Test Item Value Reference Range Comments WHITE BLOOD CELL COUNT (BEAKER) (test lvhy=049) 4.4 K/ L 3.5-10.5 RED BLOOD CELL COUNT (BEAKER) (test odtc=779) 2.52 M/ L 4.63-6.08 HEMOGLOBIN (BEAKER) (test bqba=799) 7.9 GM/DL 13.7-17.5 HEMATOCRIT (BEAKER) (test hhbg=321) 23.7 % 40.1-51.0 MEAN CORPUSCULAR VOLUME (BEAKER) (test clsf=432) 94.0 fL 79.0-92.2 MEAN CORPUSCULAR HEMOGLOBIN (BEAKER) (test 31.3 pg 25.7-32.2 wnvh=338) MEAN CORPUSCULAR HEMOGLOBIN CONC (BEAKER) (test 33.3 GM/DL 32.3-36.5 fbgb=947) RED CELL DISTRIBUTION WIDTH (BEAKER) (test 17.6 % 11.6-14.4 rsve=317) PLATELET COUNT (BEAKER) (test wqdn=823) 52 K/CU MM 150-450 MEAN PLATELET VOLUME (BEAKER) (test wxou=259) 9.2 fL 9.4-12.4 NUCLEATED RED BLOOD CELLS (BEAKER) (test 0 /100 WBC 0-0 daak=529) NEUTROPHILS RELATIVE PERCENT (BEAKER) (test 62 % suwc=391) LYMPHOCYTES RELATIVE PERCENT (BEAKER) (test 10 % bybf=117) MONOCYTES RELATIVE PERCENT (BEAKER) (test 19 % sazx=371) EOSINOPHILS RELATIVE PERCENT (BEAKER) (test 8 % jumm=343) BASOPHILS RELATIVE PERCENT (BEAKER) (test 0 % kywi=690) NEUTROPHILS ABSOLUTE COUNT (BEAKER) (test 2.72 K/ L 1.78-5.38 cbky=555) LYMPHOCYTES ABSOLUTE COUNT (BEAKER) (test 0.42 K/ L 1.32-3.57 tnfb=013) MONOCYTES ABSOLUTE COUNT (BEAKER) (test xiyx=434) 0.84 K/ L 0.30-0.82 EOSINOPHILS ABSOLUTE COUNT (BEAKER) (test 0.34 K/ L 0.04-0.54 fppz=112) BASOPHILS ABSOLUTE COUNT (BEAKER) (test xwof=543) 0.00 K/ L 0.01-0.08 IMMATURE GRANULOCYTES-RELATIVE PERCENT (BEAKER) 1 % 0-1 (test iemn=0855) CALCIUM, [id number] 07:09:00 Test Item Value Reference Range Comments CALCIUM IONIZED (BEAKER) (test ubkv=575) 1.09 mmol/L 1.12-1.27 PH, BLOOD (BEAKER) (test goew=1875) 7.36 BASIC METABOLIC [id number] 17:49:00 Test Item Value Reference Range Comments SODIUM (BEAKER) (test 124 meq/L 136-145 ohlh=818) POTASSIUM (BEAKER) (test 3.8 meq/L 3.5-5.1 kqen=802) CHLORIDE (BEAKER) (test 91 meq/L 98-107 skbt=900) CO2 (BEAKER) (test 22 meq/L 22-29 fpza=690) BLOOD UREA NITROGEN 19 mg/dL 7-21 (BEAKER) (test dmsw=672) CREATININE (BEAKER) (test 1.49 mg/dL 0.57-1.25 kazy=725) GLUCOSE RANDOM (BEAKER) 105 mg/dL 70-105 (test nzrs=134) CALCIUM (BEAKER) (test 9.3 mg/dL 8.4-10.2 nlru=100) EGFR (BEAKER) (test 50 mL/min/1.73 sq m ESTIMATED GFR IS NOT yfje=3541) ACCURATE CREATININE CLEARANCE IN PREDICTING GLOMERULAR FILTRATION RATE. ESTIMATED GFR IS NOT APPLICABLE FOR DIALYSIS PATIENTS. Call [id number] slightly ictericCALCIUM, [id number] 06:59:00 Test Item Value Reference Range Comments CALCIUM IONIZED (BEAKER) (test sbju=538) 1.00 mmol/L 1.12-1.27 PH, BLOOD (BEAKER) (test ilhe=6106) 7.47 [id number] 05:42:00 Test Item Value Reference Range Comments PHOSPHORUS (BEAKER) (test jlwo=805) 2.7 mg/dL 2.3-4.7 [id number] 05:42:00 Test Item Value Reference Range Comments MAGNESIUM (BEAKER) (test nyna=745) 1.7 mg/dL 1.6-2.6 HEPATIC FUNCTION [id number] 05:42:00 Test Item Value Reference Range Comments TOTAL PROTEIN (BEAKER) (test qkko=066) 5.2 gm/dL 6.0-8.3 ALBUMIN (BEAKER) (test yvgr=3388) 3.5 g/dL 3.5-5.0 BILIRUBIN TOTAL (BEAKER) (test udxm=505) 3.4 mg/dL 0.2-1.2 BILIRUBIN DIRECT (BEAKER) (test tcqk=484) 1.8 mg/dL 0.1-0.5 ALKALINE PHOSPHATASE (BEAKER) (test jqzj=507) 106 U/L 40-150 AST (SGOT) (BEAKER) (test hlgj=002) 15 U/L 5-34 ALT (SGPT) (BEAKER) (test mnla=287) 7 U/L 6-55 Specimen slightly ictericPROTHROMBIN [id number] 05:22:00 Test Item Value Reference Range Comments PROTIME (BEAKER) (test xqos=739) 22.6 seconds 11.7-14.7 INR (BEAKER) (test mzkx=672) 2.0 <=5.9 RECOMMENDED COUMADIN/WARFARIN INR THERAPY RANGESSTANDARD DOSE: 2.0 - 3.0 Includes: PROPHYLAXIS forvenous thrombosis, systemic embolization; TREATMENT for venous thrombosis and/or pulmonary embolus.HIGH RISK: Target INR is 2.5-3.5 for patients with mechanical heart valves.CBC W/PLT COUNT & AUTO [id number] 05:10:00 Test Item Value Reference Range Comments WHITE BLOOD CELL COUNT (BEAKER) (test gacg=253) 5.6 K/ L 3.5-10.5 RED BLOOD CELL COUNT (BEAKER) (test lilx=323) 2.09 M/ L 4.63-6.08 HEMOGLOBIN (BEAKER) (test hwrl=094) 6.5 GM/DL 13.7-17.5 HEMATOCRIT (BEAKER) (test uhlu=320) 19.8 % 40.1-51.0 MEAN CORPUSCULAR VOLUME (BEAKER) (test dlln=992) 94.7 fL 79.0-92.2 MEAN CORPUSCULAR HEMOGLOBIN (BEAKER) (test 31.1 pg 25.7-32.2 agez=370) MEAN CORPUSCULAR HEMOGLOBIN CONC (BEAKER) (test 32.8 GM/DL 32.3-36.5 xgnt=490) RED CELL DISTRIBUTION WIDTH (BEAKER) (test 17.3 % 11.6-14.4 bhvl=707) PLATELET COUNT (BEAKER) (test jtwc=669) 57 K/CU MM 150-450 MEAN PLATELET VOLUME (BEAKER) (test vlos=600) 8.9 fL 9.4-12.4 NUCLEATED RED BLOOD CELLS (BEAKER) (test 0 /100 WBC 0-0 ebvc=793) NEUTROPHILS RELATIVE PERCENT (BEAKER) (test 71 % ixyg=912) LYMPHOCYTES RELATIVE PERCENT (BEAKER) (test 9 % enbn=808) MONOCYTES RELATIVE PERCENT (BEAKER) (test 16 % iybx=599) EOSINOPHILS RELATIVE PERCENT (BEAKER) (test 3 % tbus=869) BASOPHILS RELATIVE PERCENT (BEAKER) (test 0 % slkd=316) NEUTROPHILS ABSOLUTE COUNT (BEAKER) (test 3.93 K/ L 1.78-5.38 kbhw=541) LYMPHOCYTES ABSOLUTE COUNT (BEAKER) (test 0.52 K/ L 1.32-3.57 ejkk=419) MONOCYTES ABSOLUTE COUNT (BEAKER) (test zmzr=030) 0.87 K/ L 0.30-0.82 EOSINOPHILS ABSOLUTE COUNT (BEAKER) (test 0.19 K/ L 0.04-0.54 daxr=953) BASOPHILS ABSOLUTE COUNT (BEAKER) (test jish=867) 0.01 K/ L 0.01-0.08 IMMATURE GRANULOCYTES-RELATIVE PERCENT (BEAKER) 1 % 0-1 (test yxoi=1992) HEPATIC FUNCTION [id number] 11:05:00 Test Item Value Reference Range Comments TOTAL PROTEIN (BEAKER) (test eyvy=227) 5.7 gm/dL 6.0-8.3 ALBUMIN (BEAKER) (test rcbm=4718) 3.9 g/dL 3.5-5.0 BILIRUBIN TOTAL (BEAKER) (test hcsz=869) 4.9 mg/dL 0.2-1.2 BILIRUBIN DIRECT (BEAKER) (test bttf=568) 2.0 mg/dL 0.1-0.5 ALKALINE PHOSPHATASE (BEAKER) (test vkzk=498) 98 U/L 40-150 AST (SGOT) (BEAKER) (test sdmo=426) 19 U/L 5-34 ALT (SGPT) (BEAKER) (test idrc=993) 8 U/L 6-55 Specimen moderately ictericBASIC METABOLIC [id number] 10:06:00 Test Item Value Reference Range Comments SODIUM (BEAKER) (test 132 meq/L 136-145 clik=385) POTASSIUM (BEAKER) (test 5.0 meq/L 3.5-5.1 hlmo=948) CHLORIDE (BEAKER) (test 97 meq/L 98-107 pzna=325) CO2 (BEAKER) (test 25 meq/L 22-29 dpsm=733) BLOOD UREA NITROGEN 17 mg/dL 7-21 (BEAKER) (test ezck=873) CREATININE (BEAKER) (test 1.33 mg/dL 0.57-1.25 neus=493) GLUCOSE RANDOM (BEAKER) 181 mg/dL 70-105 (test sawz=698) CALCIUM (BEAKER) (test 9.4 mg/dL 8.4-10.2 kote=644) EGFR (BEAKER) (test 56 mL/min/1.73 sq m ESTIMATED GFR IS NOT eqmg=5412) ACCURATE CREATININE CLEARANCE IN PREDICTING GLOMERULAR FILTRATION RATE. ESTIMATED GFR IS NOT APPLICABLE FOR DIALYSIS PATIENTS. Specimen moderately ictericCBC W/PLT COUNT & AUTO [id number] 07: 45:00 Test Item Value Reference Range Comments WHITE BLOOD CELL COUNT (BEAKER) (test ocia=197) 3.4 K/ L 3.5-10.5 RED BLOOD CELL COUNT (BEAKER) (test jnlv=588) 2.26 M/ L 4.63-6.08 HEMOGLOBIN (BEAKER) (test hmzo=330) 7.0 GM/DL 13.7-17.5 HEMATOCRIT (BEAKER) (test sxhg=906) 21.6 % 40.1-51.0 MEAN CORPUSCULAR VOLUME (BEAKER) (test norm=903) 95.6 fL 79.0-92.2 MEAN CORPUSCULAR HEMOGLOBIN (BEAKER) (test 31.0 pg 25.7-32.2 wrah=844) MEAN CORPUSCULAR HEMOGLOBIN CONC (BEAKER) (test 32.4 GM/DL 32.3-36.5 psrq=661) RED CELL DISTRIBUTION WIDTH (BEAKER) (test 17.3 % 11.6-14.4 sccl=020) PLATELET COUNT (BEAKER) (test hapg=001) 66 K/CU MM 150-450 MEAN PLATELET VOLUME (BEAKER) (test hssr=204) 9.8 fL 9.4-12.4 NUCLEATED RED BLOOD CELLS (BEAKER) (test 0 /100 WBC 0-0 bost=643) NEUTROPHILS RELATIVE PERCENT (BEAKER) (test 87 % uhzw=048) LYMPHOCYTES RELATIVE PERCENT (BEAKER) (test 7 % fvoj=827) MONOCYTES RELATIVE PERCENT (BEAKER) (test 5 % ltje=151) EOSINOPHILS RELATIVE PERCENT (BEAKER) (test 0 % jgha=031) BASOPHILS RELATIVE PERCENT (BEAKER) (test 0 % vtfj=067) NEUTROPHILS ABSOLUTE COUNT (BEAKER) (test 2.94 K/ L 1.78-5.38 uoqb=756) LYMPHOCYTES ABSOLUTE COUNT (BEAKER) (test 0.23 K/ L 1.32-3.57 plah=805) MONOCYTES ABSOLUTE COUNT (BEAKER) (test zrwe=241) 0.17 K/ L 0.30-0.82 EOSINOPHILS ABSOLUTE COUNT (BEAKER) (test 0.00 K/ L 0.04-0.54 syrh=273) BASOPHILS ABSOLUTE COUNT (BEAKER) (test ausd=215) 0.00 K/ L 0.01-0.08 IMMATURE GRANULOCYTES-RELATIVE PERCENT (BEAKER) 1 % 0-1 (test iuqs=7913) PROTHROMBIN [id number] 06:06:00 Test Item Value Reference Range Comments PROTIME (BEAKER) (test iwzm=406) 19.1 seconds 11.7-14.7 INR (BEAKER) (test tiwu=515) 1.6 <=5.9 RECOMMENDED COUMADIN/WARFARIN INR THERAPY RANGESSTANDARD DOSE: 2.0 - 3.0 Includes: PROPHYLAXIS forvenous thrombosis, systemic embolization; TREATMENT for venous thrombosis and/or pulmonary embolus.HIGH RISK: Target INR is 2.5-3.5 for patients with mechanical heart valves.PT/[id number] 15:35:00 Test Item Value Reference Range Comments PROTIME (BEAKER) (test smkz=815) 20.3 seconds 11.7-14.7 INR (BEAKER) (test excc=906) 1.7 <=5.9 PARTIAL THROMBOPLASTIN TIME (BEAKER) (test 46.2 seconds 22.5-36.0 awiv=501) RECOMMENDED COUMADIN/WARFARIN INR THERAPY RANGESSTANDARD DOSE: 2.0 - 3.0 Includes: PROPHYLAXIS forvenous thrombosis, systemic embolization; TREATMENT for venous thrombosis and/or pulmonary embolus.HIGH RISK: Target INR is 2.5-3.5 for patients with mechanical heart valves.30 minutes after administration of Tggvusj17 minutes after administration of KcentraPROTHROMBIN TIME/[id number] 15:33:00 Test Item Value Reference Range Comments PROTIME (BEAKER) (test llrj=831) 20.1 seconds 11.7-14.7 INR (BEAKER) (test itqy=075) 1.7 <=5.9 RECOMMENDED COUMADIN/WARFARIN INR THERAPY RANGESSTANDARD DOSE: 2.0 - 3.0 Includes: PROPHYLAXIS forvenous thrombosis, systemic embolization; TREATMENT for venous thrombosis and/or pulmonary embolus.HIGH RISK: Target INR is 2.5-3.5 for patients with mechanical heart valves.Please draw 30 mins after Kcentra doseBODY FLUID CULTURE + GRAM [id number] 11:29:00 Test Item Value Reference Range Comments CULTURE (BEAKER) (test gwte=2331) No growth GRAM STAIN RESULT (BEAKER) (test <1+ WBCs xquh=6157) GRAM STAIN RESULT (BEAKER) (test No organisms seen uppv=63468) CT, [id number] 10:30:00FINAL REPORT HISTORY : r/o intra abdominal [...] T11 and L2 vertebral bodies. Signed: Sol Landerosort Verified Date/Time: 05/08/2018 10:30:57 Reading Location: [facility] Diagnostic Imaging Reading Room - [place] [id number] CBC W/PLT COUNT & AUTO [id number] 07:27:00 Test Item Value Reference Range Comments WHITE BLOOD CELL COUNT (BEAKER) (test hzzi=296) 3.1 K/ L 3.5-10.5 RED BLOOD CELL COUNT (BEAKER) (test tjxs=166) 2.27 M/ L 4.63-6.08 HEMOGLOBIN (BEAKER) (test cfod=401) 7.1 GM/DL 13.7-17.5 HEMATOCRIT (BEAKER) (test exvv=986) 21.4 % 40.1-51.0 MEAN CORPUSCULAR VOLUME (BEAKER) (test erky=711) 94.3 fL 79.0-92.2 MEAN CORPUSCULAR HEMOGLOBIN (BEAKER) (test 31.3 pg 25.7-32.2 ecsa=767) MEAN CORPUSCULAR HEMOGLOBIN CONC (BEAKER) (test 33.2 GM/DL 32.3-36.5 efvk=172) RED CELL DISTRIBUTION WIDTH (BEAKER) (test 17.5 % 11.6-14.4 ajxt=150) PLATELET COUNT (BEAKER) (test oryr=018) 43 K/CU MM 150-450 MEAN PLATELET VOLUME (BEAKER) (test nhvq=366) 8.7 fL 9.4-12.4 NUCLEATED RED BLOOD CELLS (BEAKER) (test 0 /100 WBC 0-0 uqbk=092) NEUTROPHILS RELATIVE PERCENT (BEAKER) (test 60 % eolg=150) LYMPHOCYTES RELATIVE PERCENT (BEAKER) (test 16 % aydi=338) MONOCYTES RELATIVE PERCENT (BEAKER) (test 17 % comb=277) EOSINOPHILS RELATIVE PERCENT (BEAKER) (test 7 % ptkn=626) BASOPHILS RELATIVE PERCENT (BEAKER) (test 0 % uvgy=841) NEUTROPHILS ABSOLUTE COUNT (BEAKER) (test 1.85 K/ L 1.78-5.38 erjr=565) LYMPHOCYTES ABSOLUTE COUNT (BEAKER) (test 0.48 K/ L 1.32-3.57 mrzf=611) MONOCYTES ABSOLUTE COUNT (BEAKER) (test ssgz=528) 0.54 K/ L 0.30-0.82 EOSINOPHILS ABSOLUTE COUNT (BEAKER) (test 0.22 K/ L 0.04-0.54 ncvt=461) BASOPHILS ABSOLUTE COUNT (BEAKER) (test bgbr=375) 0.00 K/ L 0.01-0.08 IMMATURE GRANULOCYTES-RELATIVE PERCENT (BEAKER) 0 % 0-1 (test dupg=1021) CBC W/PLT COUNT & AUTO [id number] 07:26:00 Test Item Value Reference Range Comments WHITE BLOOD CELL COUNT (BEAKER) (test eqpf=235) 2.9 K/ L 3.5-10.5 RED BLOOD CELL COUNT (BEAKER) (test epwh=868) 2.25 M/ L 4.63-6.08 HEMOGLOBIN (BEAKER) (test tccq=903) 7.1 GM/DL 13.7-17.5 HEMATOCRIT (BEAKER) (test kwjy=508) 21.4 % 40.1-51.0 MEAN CORPUSCULAR VOLUME (BEAKER) (test rqsq=779) 95.1 fL 79.0-92.2 MEAN CORPUSCULAR HEMOGLOBIN (BEAKER) (test 31.6 pg 25.7-32.2 rsjp=328) MEAN CORPUSCULAR HEMOGLOBIN CONC (BEAKER) (test 33.2 GM/DL 32.3-36.5 qlkv=554) RED CELL DISTRIBUTION WIDTH (BEAKER) (test 17.5 % 11.6-14.4 gdwi=152) PLATELET COUNT (BEAKER) (test hufy=343) 44 K/CU MM 150-450 MEAN PLATELET VOLUME (BEAKER) (test cxsv=985) 9.3 fL 9.4-12.4 NUCLEATED RED BLOOD CELLS (BEAKER) (test 0 /100 WBC 0-0 qmji=314) NEUTROPHILS RELATIVE PERCENT (BEAKER) (test 59 % thri=221) LYMPHOCYTES RELATIVE PERCENT (BEAKER) (test 16 % ipkk=294) MONOCYTES RELATIVE PERCENT (BEAKER) (test 17 % twsb=684) EOSINOPHILS RELATIVE PERCENT (BEAKER) (test 7 % piqe=929) BASOPHILS RELATIVE PERCENT (BEAKER) (test 0 % utgv=168) NEUTROPHILS ABSOLUTE COUNT (BEAKER) (test 1.72 K/ L 1.78-5.38 glht=088) LYMPHOCYTES ABSOLUTE COUNT (BEAKER) (test 0.46 K/ L 1.32-3.57 thkl=328) MONOCYTES ABSOLUTE COUNT (BEAKER) (test jefd=876) 0.51 K/ L 0.30-0.82 EOSINOPHILS ABSOLUTE COUNT (BEAKER) (test 0.21 K/ L 0.04-0.54 pwjx=499) BASOPHILS ABSOLUTE COUNT (BEAKER) (test uvpr=318) 0.01 K/ L 0.01-0.08 IMMATURE GRANULOCYTES-RELATIVE PERCENT (BEAKER) 1 % 0-1 (test zkml=1856) BASIC METABOLIC [id number] 07:00:00 Test Item Value Reference Range Comments SODIUM (BEAKER) (test 130 meq/L 136-145 xrvp=925) POTASSIUM (BEAKER) (test 3.6 meq/L 3.5-5.1 kslv=770) CHLORIDE (BEAKER) (test 94 meq/L 98-107 qgmn=680) CO2 (BEAKER) (test 27 meq/L 22-29 kgae=137) BLOOD UREA NITROGEN 19 mg/dL 7-21 (BEAKER) (test dyyd=600) CREATININE (BEAKER) (test 1.40 mg/dL 0.57-1.25 ztuq=950) GLUCOSE RANDOM (BEAKER) 111 mg/dL 70-105 (test picw=041) CALCIUM (BEAKER) (test 9.2 mg/dL 8.4-10.2 ukkx=363) EGFR (BEAKER) (test 53 mL/min/1.73 sq m ESTIMATED GFR IS NOT rmbq=1992) ACCURATE CREATININE CLEARANCE IN PREDICTING GLOMERULAR FILTRATION RATE. ESTIMATED GFR IS NOT APPLICABLE FOR DIALYSIS PATIENTS. Specimen moderately ictericCOMPREHENSIVE METABOLIC [id number] 07:00:00 Test Item Value Reference Range Comments TOTAL PROTEIN (BEAKER) 5.7 gm/dL 6.0-8.3 (test agjz=177) ALBUMIN (BEAKER) (test 4.0 g/dL 3.5-5.0 lhqq=2311) ALKALINE PHOSPHATASE 92 U/L 40-150 (BEAKER) (test ekdj=046) BILIRUBIN TOTAL (BEAKER) 4.6 mg/dL 0.2-1.2 (test tthq=459) SODIUM (BEAKER) (test 130 meq/L 136-145 pjmp=667) POTASSIUM (BEAKER) (test 3.6 meq/L 3.5-5.1 gcop=733) CHLORIDE (BEAKER) (test 94 meq/L 98-107 wkwj=246) CO2 (BEAKER) (test 27 meq/L 22-29 adag=224) BLOOD UREA NITROGEN 19 mg/dL 7-21 (BEAKER) (test mqvh=381) CREATININE (BEAKER) (test 1.40 mg/dL 0.57-1.25 onrt=371) GLUCOSE RANDOM (BEAKER) 111 mg/dL 70-105 (test pjok=467) CALCIUM (BEAKER) (test 9.2 mg/dL 8.4-10.2 nojk=951) AST (SGOT) (BEAKER) (test 16 U/L 5-34 rfxu=794) ALT (SGPT) (BEAKER) (test 6 U/L 6-55 qkuy=702) EGFR (BEAKER) (test 53 mL/min/1.73 sq m ESTIMATED GFR IS NOT yeno=7144) ACCURATE CREATININE CLEARANCE IN PREDICTING GLOMERULAR FILTRATION RATE. ESTIMATED GFR IS NOT APPLICABLE FOR DIALYSIS PATIENTS. Specimen moderately ictericHEPATIC FUNCTION [id number] 07:00:00 Test Item Value Reference Range Comments TOTAL PROTEIN (BEAKER) (test bkqb=355) 5.7 gm/dL 6.0-8.3 ALBUMIN (BEAKER) (test ocvb=9862) 4.0 g/dL 3.5-5.0 BILIRUBIN TOTAL (BEAKER) (test tmqd=073) 4.6 mg/dL 0.2-1.2 BILIRUBIN DIRECT (BEAKER) (test fxyv=700) 1.8 mg/dL 0.1-0.5 ALKALINE PHOSPHATASE (BEAKER) (test kbnl=415) 92 U/L 40-150 AST (SGOT) (BEAKER) (test ihcb=622) 16 U/L 5-34 ALT (SGPT) (BEAKER) (test dsow=166) 6 U/L 6-55 Specimen moderately [id number] 06:57:00 Test Item Value Reference Range Comments PARTIAL THROMBOPLASTIN TIME (BEAKER) (test 47.9 seconds 22.5-36.0 ssqu=637) PROTHROMBIN TIME/[id number] 06:55:00 Test Item Value Reference Range Comments PROTIME (BEAKER) (test ierg=804) 23.7 seconds 11.7-14.7 INR (BEAKER) (test dnuf=200) 2.1 <=5.9 RECOMMENDED COUMADIN/WARFARIN INR THERAPY RANGESSTANDARD DOSE: 2.0 - 3.0 Includes: PROPHYLAXIS forvenous thrombosis, systemic embolization; TREATMENT for venous thrombosis and/or pulmonary embolus.HIGH RISK: Target INR is 2.5-3.5 for patients with mechanical heart valves.MR, SPINE, LUMBAR, WITHOUT [id number] 16:57:00FINAL REPORT MRI lumbar spine without contrast [...] and large volume ascites. Signed: Tashia Bain Verified Date/Time: 05/07/2018 16:57:00 Reading Location: [facility] Radiology Reading Room LACTIC ACID, VENOUS, WHOLE [id number] 14:13:00 Test Item Value Reference Range Comments LACTATE BLOOD VENOUS (2) (BEAKER) (test 2.6 mmol/L 0.5-2.2 uhus=1095) Effective 02/28/2016: Units/Reference Range ChangeNew: 0.5-2.2 mmol/L Previous: 5 -20 mg/dLSpecimen slightly ictericHEMOGLOBIN AND [id number] 13:51:00 Test Item Value Reference Range Comments HEMOGLOBIN (BEAKER) (test aweh=195) 7.1 GM/DL 13.7-17.5 HEMATOCRIT (BEAKER) (test bqwo=177) 21.7 % 40.1-51.0 U/S, RENAL, [id number] 09:48:00Reason for exam:->AKIFINAL REPORT Renal ultrasound Clinical [...] Haque Verified Date/Time: 05/07/2018 09:48:55 Reading Location: [address] Ultrasound Reading Room Electronically signed by: REECE HAQUE MD on 09:[id number] 09:04:00 Test Item Value Reference Range Comments MAGNESIUM (BEAKER) (test rjvi=710) 2.0 mg/dL 1.6-2.6 COMPREHENSIVE METABOLIC [id number] 09:04:00 Test Item Value Reference Range Comments TOTAL PROTEIN (BEAKER) 5.2 gm/dL 6.0-8.3 (test tdtr=576) ALBUMIN (BEAKER) (test 3.5 g/dL 3.5-5.0 maav=3640) ALKALINE PHOSPHATASE 96 U/L 40-150 (BEAKER) (test twld=692) BILIRUBIN TOTAL (BEAKER) 4.1 mg/dL 0.2-1.2 (test zyzu=476) SODIUM (BEAKER) (test 129 meq/L 136-145 wjmu=673) POTASSIUM (BEAKER) (test 3.8 meq/L 3.5-5.1 fixu=104) CHLORIDE (BEAKER) (test 96 meq/L 98-107 mgyc=936) CO2 (BEAKER) (test 25 meq/L 22-29 fgll=350) BLOOD UREA NITROGEN 22 mg/dL 7-21 (BEAKER) (test dczs=830) CREATININE (BEAKER) (test 1.57 mg/dL 0.57-1.25 qvig=982) GLUCOSE RANDOM (BEAKER) 122 mg/dL 70-105 (test vbew=055) CALCIUM (BEAKER) (test 8.9 mg/dL 8.4-10.2 arju=142) AST (SGOT) (BEAKER) (test 15 U/L 5-34 bvot=060) ALT (SGPT) (BEAKER) (test 7 U/L 6-55 pqqw=977) EGFR (BEAKER) (test 47 mL/min/1.73 sq m ESTIMATED GFR IS NOT zisj=8877) ACCURATE CREATININE CLEARANCE IN PREDICTING GLOMERULAR FILTRATION RATE. ESTIMATED GFR IS NOT APPLICABLE FOR DIALYSIS PATIENTS. Specimen moderately ictericHEPATIC FUNCTION [id number] 09:04:00 Test Item Value Reference Range Comments TOTAL PROTEIN (BEAKER) (test omjc=244) 5.2 gm/dL 6.0-8.3 ALBUMIN (BEAKER) (test fqvf=4265) 3.5 g/dL 3.5-5.0 BILIRUBIN TOTAL (BEAKER) (test mdrj=375) 4.1 mg/dL 0.2-1.2 BILIRUBIN DIRECT (BEAKER) (test svuy=674) 1.8 mg/dL 0.1-0.5 ALKALINE PHOSPHATASE (BEAKER) (test eavh=144) 96 U/L 40-150 AST (SGOT) (BEAKER) (test zehx=360) 15 U/L 5-34 ALT (SGPT) (BEAKER) (test sknr=144) 7 U/L 6-55 Specimen moderately ictericCBC W/PLT COUNT & AUTO [id number] 08: 26:00 Test Item Value Reference Range Comments WHITE BLOOD CELL COUNT (BEAKER) (test ayte=327) 2.7 K/ L 3.5-10.5 RED BLOOD CELL COUNT (BEAKER) (test ruun=021) 2.13 M/ L 4.63-6.08 HEMOGLOBIN (BEAKER) (test blkt=270) 6.8 GM/DL 13.7-17.5 HEMATOCRIT (BEAKER) (test bgct=245) 19.5 % 40.1-51.0 MEAN CORPUSCULAR VOLUME (BEAKER) (test bhxp=372) 91.5 fL 79.0-92.2 MEAN CORPUSCULAR HEMOGLOBIN (BEAKER) (test 31.9 pg 25.7-32.2 pyom=850) MEAN CORPUSCULAR HEMOGLOBIN CONC (BEAKER) (test 34.9 GM/DL 32.3-36.5 izaj=184) RED CELL DISTRIBUTION WIDTH (BEAKER) (test 17.5 % 11.6-14.4 dkjf=984) PLATELET COUNT (BEAKER) (test cgcr=658) 52 K/CU MM 150-450 MEAN PLATELET VOLUME (BEAKER) (test qdom=068) 9.1 fL 9.4-12.4 NUCLEATED RED BLOOD CELLS (BEAKER) (test 0 /100 WBC 0-0 piyw=001) NEUTROPHILS RELATIVE PERCENT (BEAKER) (test 62 % sfvh=846) LYMPHOCYTES RELATIVE PERCENT (BEAKER) (test 16 % vfzb=873) MONOCYTES RELATIVE PERCENT (BEAKER) (test 17 % svog=782) EOSINOPHILS RELATIVE PERCENT (BEAKER) (test 4 % wixh=756) BASOPHILS RELATIVE PERCENT (BEAKER) (test 0 % jkus=262) NEUTROPHILS ABSOLUTE COUNT (BEAKER) (test 1.66 K/ L 1.78-5.38 exel=598) LYMPHOCYTES ABSOLUTE COUNT (BEAKER) (test 0.43 K/ L 1.32-3.57 gpec=045) MONOCYTES ABSOLUTE COUNT (BEAKER) (test burg=590) 0.44 K/ L 0.30-0.82 EOSINOPHILS ABSOLUTE COUNT (BEAKER) (test 0.11 K/ L 0.04-0.54 juln=966) BASOPHILS ABSOLUTE COUNT (BEAKER) (test jbut=509) 0.00 K/ L 0.01-0.08 IMMATURE GRANULOCYTES-RELATIVE PERCENT (BEAKER) 1 % 0-1 (test lnkv=6289) PROTHROMBIN [id number] 08:08:00 Test Item Value Reference Range Comments PROTIME (BEAKER) (test kxeu=521) 28.3 seconds 11.7-14.7 INR (BEAKER) (test xidg=910) 2.7 <=5.9 RECOMMENDED COUMADIN/WARFARIN INR THERAPY RANGESSTANDARD DOSE: 2.0 - 3.0 Includes: PROPHYLAXIS forvenous thrombosis, systemic embolization; TREATMENT for venous thrombosis and/or pulmonary embolus.HIGH RISK: Target INR is 2.5-3.5 for patients with mechanical heart valves.[id number] 19:47:00 Test Item Value Reference Range Comments SODIUM (BEAKER) (test jqpm=037) 129 meq/L 136-145 POTASSIUM (BEAKER) (test airq=207) 4.6 meq/L 3.5-5.1 CHLORIDE (BEAKER) (test almi=521) 96 meq/L 98-107 CO2 (BEAKER) (test fhkb=699) 22 meq/L 22-29 Call [id number] AND [id number] 19:27:00 Test Item Value Reference Range Comments HEMOGLOBIN (BEAKER) (test kafo=481) 7.1 GM/DL 13.7-17.5 HEMATOCRIT (BEAKER) (test fkbj=970) 21.4 % 40.1-51.0 Draw after transfusion of 1u RBC, notify hospitalist if Hgb remains less than 7.0HEMOGLOBIN AND [id number] 11:52:00 Test Item Value Reference Range Comments HEMOGLOBIN (BEAKER) (test ageb=005) 6.3 GM/DL 13.7-17.5 HEMATOCRIT (BEAKER) (test hofm=686) 18.9 % 40.1-51.0 Notify Hepatology if Hgb< 7.0YUNIOR Sandoval PA-CPager#: .BASIC METABOLIC [id number] 05:55:00 Test Item Value Reference Range Comments SODIUM (BEAKER) (test 129 meq/L 136-145 absh=878) POTASSIUM (BEAKER) (test 5.2 meq/L 3.5-5.1 fkpk=916) CHLORIDE (BEAKER) (test 97 meq/L 98-107 wiex=871) CO2 (BEAKER) (test 22 meq/L 22-29 mvcc=652) BLOOD UREA NITROGEN 28 mg/dL 7-21 (BEAKER) (test fmgq=779) CREATININE (BEAKER) (test 1.95 mg/dL 0.57-1.25 zwvc=960) GLUCOSE RANDOM (BEAKER) 102 mg/dL 70-105 (test yzpk=455) CALCIUM (BEAKER) (test 9.4 mg/dL 8.4-10.2 easz=037) EGFR (BEAKER) (test 36 mL/min/1.73 sq m ESTIMATED GFR IS NOT ecsm=3338) ACCURATE CREATININE CLEARANCE IN PREDICTING GLOMERULAR FILTRATION RATE. ESTIMATED GFR IS NOT APPLICABLE FOR DIALYSIS PATIENTS. Specimen slightly ictericHEPATIC FUNCTION [id number] 05:55:00 Test Item Value Reference Range Comments TOTAL PROTEIN (BEAKER) (test awfm=598) 5.6 gm/dL 6.0-8.3 ALBUMIN (BEAKER) (test eosg=2061) 3.4 g/dL 3.5-5.0 BILIRUBIN TOTAL (BEAKER) (test gyyp=901) 3.7 mg/dL 0.2-1.2 BILIRUBIN DIRECT (BEAKER) (test rqhd=375) 2.5 mg/dL 0.1-0.5 ALKALINE PHOSPHATASE (BEAKER) (test mrdb=208) 108 U/L 40-150 AST (SGOT) (BEAKER) (test pptg=627) 17 U/L 5-34 ALT (SGPT) (BEAKER) (test mpmb=710) 7 U/L 6-55 Specimen slightly ictericCBC W/PLT COUNT & AUTO [id number] 05:42 :00 Test Item Value Reference Range Comments WHITE BLOOD CELL COUNT (BEAKER) (test kptr=398) 3.7 K/ L 3.5-10.5 RED BLOOD CELL COUNT (BEAKER) (test kuuu=344) 2.10 M/ L 4.63-6.08 HEMOGLOBIN (BEAKER) (test ntbk=091) 6.5 GM/DL 13.7-17.5 HEMATOCRIT (BEAKER) (test pwop=815) 19.8 % 40.1-51.0 MEAN CORPUSCULAR VOLUME (BEAKER) (test frte=113) 94.3 fL 79.0-92.2 MEAN CORPUSCULAR HEMOGLOBIN (BEAKER) (test 31.0 pg 25.7-32.2 mqax=703) MEAN CORPUSCULAR HEMOGLOBIN CONC (BEAKER) (test 32.8 GM/DL 32.3-36.5 gufp=954) RED CELL DISTRIBUTION WIDTH (BEAKER) (test 16.4 % 11.6-14.4 eyta=759) PLATELET COUNT (BEAKER) (test aqpd=739) 54 K/CU MM 150-450 MEAN PLATELET VOLUME (BEAKER) (test agrk=621) 9.8 fL 9.4-12.4 NUCLEATED RED BLOOD CELLS (BEAKER) (test 0 /100 WBC 0-0 xckz=722) NEUTROPHILS RELATIVE PERCENT (BEAKER) (test 62 % mkjo=865) LYMPHOCYTES RELATIVE PERCENT (BEAKER) (test 15 % cujr=546) MONOCYTES RELATIVE PERCENT (BEAKER) (test 18 % lqia=229) EOSINOPHILS RELATIVE PERCENT (BEAKER) (test 3 % waij=041) BASOPHILS RELATIVE PERCENT (BEAKER) (test 0 % uguq=421) NEUTROPHILS ABSOLUTE COUNT (BEAKER) (test 2.27 K/ L 1.78-5.38 ivpr=324) LYMPHOCYTES ABSOLUTE COUNT (BEAKER) (test 0.56 K/ L 1.32-3.57 mlmd=093) MONOCYTES ABSOLUTE COUNT (BEAKER) (test eamk=227) 0.66 K/ L 0.30-0.82 EOSINOPHILS ABSOLUTE COUNT (BEAKER) (test 0.12 K/ L 0.04-0.54 goqj=554) BASOPHILS ABSOLUTE COUNT (BEAKER) (test vuaz=739) 0.01 K/ L 0.01-0.08 IMMATURE GRANULOCYTES-RELATIVE PERCENT (BEAKER) 1 % 0-1 (test crwh=9684) PROTHROMBIN TIME/[id number] 05:34:00 Test Item Value Reference Range Comments PROTIME (BEAKER) (test ktqh=915) 21.7 seconds 11.7-14.7 INR (BEAKER) (test nbuv=220) 1.9 <=5.9 RECOMMENDED COUMADIN/WARFARIN INR THERAPY RANGESSTANDARD DOSE: 2.0 - 3.0 Includes: PROPHYLAXIS forvenous thrombosis, systemic embolization; TREATMENT for venous thrombosis and/or pulmonary embolus.HIGH RISK: Target INR is 2.5-3.5 for patients with mechanical heart valves.EOSINOPHIL SMEAR, [id number] 21: 51:00 Test Item Value Reference Range Comments EOSINOPHIL SMEAR, URINE (BEAKER) (test No EOS seen No EOS seen lnnh=1578) BODY FLUID CELL COUNT WITH [id number] 21:42:00 Test Item Value Reference Range Comments APPEARANCE FLUID (BEAKER) (test ohfo=678) Hazy Clear COLOR FLUID (BEAKER) (test xspp=700) Yellow Colorless, Straw RBC FLUID (BEAKER) (test fwef=321) 70 /cu mm <=1 ADJUSTED WBC FLUID (BEAKER) (test vsyc=3552) 44 /cu mm <=5 LINING CELLS (BEAKER) (test qaim=6099) 8 /cu mm <=1 NEUTROPHILS FLUID (BEAKER) (test xhcb=6395) 0 % LYMPHS FLUID (BEAKER) (test tyal=335) 11 % MONO/MACROPHAGE FLUID (BEAKER) (test ysaa=052) 89 % EOSINOPHILS FLUID (BEAKER) (test boky=192) 0 % BASO FLUID (BEAKER) (test vonw=918) 0 % CONTAINER BODY FLUID (BEAKER) (test vtjj=2170) EDTA Tube OSMOLALITY, [id number] 19:46:00 Test Item Value Reference Range Comments OSMOLALITY URINE (BEAKER) (test gvma=257) 355 mOsm/kg 40-1400 SODIUM, RANDOM [id number] 19:35:00 Test Item Value Reference Range Comments SODIUM URINE (BEAKER) (test fbbm=344) < meq/L Reference Range: No NormalsPROTEIN, RANDOM [id number] 19:27:00 Test Item Value Reference Range Comments PROTEIN, URINE (BEAKER) (test mbkm=2660) 7 mg/dL 0-14 CREATININE, RANDOM [id number] 19:25:00 Test Item Value Reference Range Comments CREATININE URINE (BEAKER) (test cvyf=870) 150.3 mg/dL Reference Range: No [id number] 16:26:00 Test Item Value Reference Range Comments PREALBUMIN (BEAKER) (test vvny=139) 5 mg/dL 14-45 Listed for OLT - Nutrition Surveillance ([facility] Hepatology Transplant Team)U/S, [id number] 14:56:00Reason for exam:->ascites - limit to 5L [...] Verified Date/Time: 05/05/2018 14:56:27 Reading Location: [facility] [id number] Ultrasound Reading Room [facility] METABOLIC [id number] 09:36:00 Test Item Value Reference Range Comments SODIUM (BEAKER) (test 125 meq/L 136-145 uepr=892) POTASSIUM (BEAKER) (test 4.2 meq/L 3.5-5.1 ynmm=660) CHLORIDE (BEAKER) (test 95 meq/L 98-107 gipg=943) CO2 (BEAKER) (test 23 meq/L 22-29 girk=814) BLOOD UREA NITROGEN 29 mg/dL 7-21 (BEAKER) (test vwfj=969) CREATININE (BEAKER) (test 2.01 mg/dL 0.57-1.25 xyqj=048) GLUCOSE RANDOM (BEAKER) 112 mg/dL 70-105 (test shvv=894) CALCIUM (BEAKER) (test 9.2 mg/dL 8.4-10.2 rwkf=368) EGFR (BEAKER) (test 35 mL/min/1.73 sq m ESTIMATED GFR IS NOT zokn=1478) ACCURATE CREATININE CLEARANCE IN PREDICTING GLOMERULAR FILTRATION RATE. ESTIMATED GFR IS NOT APPLICABLE FOR DIALYSIS PATIENTS. Specimen slightly ictericHEPATIC FUNCTION [id number] 09:36:00 Test Item Value Reference Range Comments TOTAL PROTEIN (BEAKER) (test tkxg=021) 5.3 gm/dL 6.0-8.3 ALBUMIN (BEAKER) (test ikfn=6430) 3.0 g/dL 3.5-5.0 BILIRUBIN TOTAL (BEAKER) (test puuz=926) 4.1 mg/dL 0.2-1.2 BILIRUBIN DIRECT (BEAKER) (test prwu=428) 2.8 mg/dL 0.1-0.5 ALKALINE PHOSPHATASE (BEAKER) (test zuip=000) 115 U/L 40-150 AST (SGOT) (BEAKER) (test iqob=055) 20 U/L 5-34 ALT (SGPT) (BEAKER) (test kwrr=920) 9 U/L 6-55 Specimen slightly ictericCBC W/PLT COUNT & AUTO [id number] 09:28 :00 Test Item Value Reference Range Comments WHITE BLOOD CELL COUNT (BEAKER) (test bwjr=576) 4.4 K/ L 3.5-10.5 RED BLOOD CELL COUNT (BEAKER) (test bsex=005) 2.20 M/ L 4.63-6.08 HEMOGLOBIN (BEAKER) (test kxgs=399) 7.1 GM/DL 13.7-17.5 HEMATOCRIT (BEAKER) (test evfw=711) 21.1 % 40.1-51.0 MEAN CORPUSCULAR VOLUME (BEAKER) (test hirg=977) 95.9 fL 79.0-92.2 MEAN CORPUSCULAR HEMOGLOBIN (BEAKER) (test 32.3 pg 25.7-32.2 hwpq=828) MEAN CORPUSCULAR HEMOGLOBIN CONC (BEAKER) (test 33.6 GM/DL 32.3-36.5 eqry=648) RED CELL DISTRIBUTION WIDTH (BEAKER) (test 16.7 % 11.6-14.4 grrz=623) PLATELET COUNT (BEAKER) (test wtem=861) 60 K/CU MM 150-450 MEAN PLATELET VOLUME (BEAKER) (test dlju=399) 9.7 fL 9.4-12.4 NUCLEATED RED BLOOD CELLS (BEAKER) (test 0 /100 WBC 0-0 ygbr=706) NEUTROPHILS RELATIVE PERCENT (BEAKER) (test 71 % wvca=835) LYMPHOCYTES RELATIVE PERCENT (BEAKER) (test 9 % vnbi=651) MONOCYTES RELATIVE PERCENT (BEAKER) (test 16 % vmah=184) EOSINOPHILS RELATIVE PERCENT (BEAKER) (test 3 % yoib=418) BASOPHILS RELATIVE PERCENT (BEAKER) (test 0 % qftl=161) NEUTROPHILS ABSOLUTE COUNT (BEAKER) (test 3.10 K/ L 1.78-5.38 ewrz=537) LYMPHOCYTES ABSOLUTE COUNT (BEAKER) (test 0.39 K/ L 1.32-3.57 oyeg=342) MONOCYTES ABSOLUTE COUNT (BEAKER) (test xmbt=409) 0.69 K/ L 0.30-0.82 EOSINOPHILS ABSOLUTE COUNT (BEAKER) (test 0.12 K/ L 0.04-0.54 xdgm=488) BASOPHILS ABSOLUTE COUNT (BEAKER) (test wwft=225) 0.01 K/ L 0.01-0.08 IMMATURE GRANULOCYTES-RELATIVE PERCENT (BEAKER) 1 % 0-1 (test tnpd=1495) PROTHROMBIN [id number] 09:07:00 Test Item Value Reference Range Comments PROTIME (BEAKER) (test deup=115) 21.6 seconds 11.7-14.7 INR (BEAKER) (test nxtm=825) 1.9 <=5.9 RECOMMENDED COUMADIN/WARFARIN INR THERAPY RANGESSTANDARD DOSE: 2.0 - 3.0 Includes: PROPHYLAXIS forvenous thrombosis, systemic embolization; TREATMENT for venous thrombosis and/or pulmonary embolus.HIGH RISK: Target INR is 2.5-3.5 for patients with mechanical heart valves.[id number] 13:59:00 Test Item Value Reference Range Comments POC-CREATININE (BEAKER) 2.0 mg/dL 0.6-1.[address] [facility] [address] [facility] (test ammn=9610) [facility] [address] POC-EGFR (BEAKER) (test 35 mL/min/1.73M2 xqli=3372) PET/CT, LIMITED AREA [id number] 08:25:00PET/ CT ChestReason for Exam:-> Elongated nodular [...] thighsAdditional imaging: NoneSerum blood glucose: 119CPT Code: 01511 FINDINGS:Head and Neck: There is no trisha [...] MDReport Verified Date/Time: 03/31/2018 08:25:09 POCT- GLUCOSE [id number] 14:54:00 Test Item Value Reference Range Comments POC-GLUCOSE METER (BEAKER) 119 mg/dL 70-[address] [facility] [address] (test oznq=0543) [facility] [address] COMPREHENSIVE METABOLIC [id number] 16:49:00 Test Item Value Reference Range Comments TOTAL PROTEIN (BEAKER) 6.2 gm/dL 6.0-8.3 (test hwbk=740) ALBUMIN (BEAKER) (test 3.4 g/dL 3.5-5.0 whwf=9071) ALKALINE PHOSPHATASE 139 U/L 40-150 (BEAKER) (test mazr=979) BILIRUBIN TOTAL (BEAKER) 4.0 mg/dL 0.2-1.2 (test kajl=188) SODIUM (BEAKER) (test 129 meq/L 136-145 iktj=704) POTASSIUM (BEAKER) (test 4.3 meq/L 3.5-5.1 tnxs=760) CHLORIDE (BEAKER) (test 96 meq/L 98-107 sbxo=502) CO2 (BEAKER) (test 22 meq/L 22-29 ahqf=341) BLOOD UREA NITROGEN 28 mg/dL 7-21 (BEAKER) (test qnck=109) CREATININE (BEAKER) (test 1.51 mg/dL 0.57-1.25 gyet=949) GLUCOSE RANDOM (BEAKER) 89 mg/dL 70-105 (test jkoh=526) CALCIUM (BEAKER) (test 9.5 mg/dL 8.4-10.2 ryzo=062) AST (SGOT) (BEAKER) (test 26 U/L 5-34 klqe=027) ALT (SGPT) (BEAKER) (test 11 U/L 6-55 rbju=612) EGFR (BEAKER) (test 49 mL/min/1.73 sq m ESTIMATED GFR IS NOT mvqs=5462) ACCURATE CREATININE CLEARANCE IN PREDICTING GLOMERULAR FILTRATION RATE. ESTIMATED GFR IS NOT APPLICABLE FOR DIALYSIS PATIENTS. Specimen slightly ictericBILIRUBIN, [id number] 16:49:00 Test Item Value Reference Range Comments BILIRUBIN DIRECT (BEAKER) (test siij=117) 2.8 mg/dL 0.1-0.5 PROTHROMBIN [id number] 16:36:00 Test Item Value Reference Range Comments PROTIME (BEAKER) (test rnyg=430) 19.0 seconds 11.7-14.7 INR (BEAKER) (test bidx=682) 1.6 <=5.9 RECOMMENDED COUMADIN/WARFARIN INR THERAPY RANGESSTANDARD DOSE: 2.0 - 3.0 Includes: PROPHYLAXIS forvenous thrombosis, systemic embolization; TREATMENT for venous thrombosis and/or pulmonary embolus.HIGH RISK: Target INR is 2.5-3.5 for patients with mechanical heart valves.CBC W/PLT COUNT & AUTO [id number] 16:27:00 Test Item Value Reference Range Comments WHITE BLOOD CELL COUNT (BEAKER) (test ynew=932) 6.0 K/ L 3.5-10.5 RED BLOOD CELL COUNT (BEAKER) (test jjoi=535) 2.74 M/ L 4.63-6.08 HEMOGLOBIN (BEAKER) (test otyg=807) 9.3 GM/DL 13.7-17.5 HEMATOCRIT (BEAKER) (test obve=426) 27.6 % 40.1-51.0 MEAN CORPUSCULAR VOLUME (BEAKER) (test fkvy=555) 100.7 fL 79.0-92.2 MEAN CORPUSCULAR HEMOGLOBIN (BEAKER) (test 33.9 pg 25.7-32.2 xdwm=820) MEAN CORPUSCULAR HEMOGLOBIN CONC (BEAKER) (test 33.7 GM/DL 32.3-36.5 iltj=275) RED CELL DISTRIBUTION WIDTH (BEAKER) (test 14.9 % 11.6-14.4 aipe=481) PLATELET COUNT (BEAKER) (test eant=027) 96 K/CU MM 150-450 MEAN PLATELET VOLUME (BEAKER) (test tdts=887) 9.4 fL 9.4-12.4 NUCLEATED RED BLOOD CELLS (BEAKER) (test 0 /100 WBC 0-0 izlz=079) NEUTROPHILS RELATIVE PERCENT (BEAKER) (test 64 % uvxo=871) LYMPHOCYTES RELATIVE PERCENT (BEAKER) (test 11 % ndcv=924) MONOCYTES RELATIVE PERCENT (BEAKER) (test 16 % mrwk=433) EOSINOPHILS RELATIVE PERCENT (BEAKER) (test 7 % udfs=028) BASOPHILS RELATIVE PERCENT (BEAKER) (test 1 % yvoy=648) NEUTROPHILS ABSOLUTE COUNT (BEAKER) (test 3.83 K/ L 1.78-5.38 ffma=783) LYMPHOCYTES ABSOLUTE COUNT (BEAKER) (test 0.66 K/ L 1.32-3.57 pcnv=447) MONOCYTES ABSOLUTE COUNT (BEAKER) (test uozj=992) 0.95 K/ L 0.30-0.82 EOSINOPHILS ABSOLUTE COUNT (BEAKER) (test 0.41 K/ L 0.04-0.54 gsgd=275) BASOPHILS ABSOLUTE COUNT (BEAKER) (test rzul=427) 0.03 K/ L 0.01-0.08 IMMATURE GRANULOCYTES-RELATIVE PERCENT (BEAKER) 2 % 0-1 (test qmfm=4355) BASIC METABOLIC [id number] 08:26:00 Test Item Value Reference Range Comments SODIUM (BEAKER) (test 127 meq/L 136-145 yugw=425) POTASSIUM (BEAKER) (test 4.3 meq/L 3.5-5.1 ykus=538) CHLORIDE (BEAKER) (test 96 meq/L 98-107 spcb=707) CO2 (BEAKER) (test 23 meq/L 22-29 bnpg=524) BLOOD UREA NITROGEN 25 mg/dL 7-21 (BEAKER) (test hhko=864) CREATININE (BEAKER) (test 1.46 mg/dL 0.57-1.25 sndp=625) GLUCOSE RANDOM (BEAKER) 130 mg/dL 70-105 (test rafn=310) CALCIUM (BEAKER) (test 9.1 mg/dL 8.4-10.2 wecg=178) EGFR (BEAKER) (test 51 mL/min/1.73 sq m ESTIMATED GFR IS NOT nauy=1160) ACCURATE CREATININE CLEARANCE IN PREDICTING GLOMERULAR FILTRATION RATE. ESTIMATED GFR IS NOT APPLICABLE FOR DIALYSIS PATIENTS. Specimen slightly ictericCBC (HEMOGRAM ONLY)2018-02-23 08:06:00 Test Item Value Reference Range Comments WHITE BLOOD CELL COUNT (BEAKER) (test gtxb=099) 5.4 K/ L 3.5-10.5 RED BLOOD CELL COUNT (BEAKER) (test sbjw=251) 2.64 M/ L 4.63-6.08 HEMOGLOBIN (BEAKER) (test nnxp=851) 8.8 GM/DL 13.7-17.5 HEMATOCRIT (BEAKER) (test tapp=440) 26.2 % 40.1-51.0 MEAN CORPUSCULAR VOLUME (BEAKER) (test umfu=042) 99.2 fL 79.0-92.2 MEAN CORPUSCULAR HEMOGLOBIN (BEAKER) (test 33.3 pg 25.7-32.2 rwtv=154) MEAN CORPUSCULAR HEMOGLOBIN CONC (BEAKER) (test 33.6 GM/DL 32.3-36.5 tbxa=737) RED CELL DISTRIBUTION WIDTH (BEAKER) (test 16.2 % 11.6-14.4 smid=607) PLATELET COUNT (BEAKER) (test qfzg=180) 100 K/CU MM 150-450 MEAN PLATELET VOLUME (BEAKER) (test xves=860) 8.7 fL 9.4-12.4 NUCLEATED RED BLOOD CELLS (BEAKER) (test 0 /100 WBC 0-0 tspc=148) COMPREHENSIVE METABOLIC [id number] 15:06:00 Test Item Value Reference Range Comments TOTAL PROTEIN (BEAKER) 6.5 gm/dL 6.0-8.3 (test ofen=795) ALBUMIN (BEAKER) (test 3.7 g/dL 3.5-5.0 cgia=5858) ALKALINE PHOSPHATASE 135 U/L 40-150 (BEAKER) (test akgm=168) BILIRUBIN TOTAL (BEAKER) 4.5 mg/dL 0.2-1.2 (test kenh=268) SODIUM (BEAKER) (test 131 meq/L 136-145 gciw=163) POTASSIUM (BEAKER) (test 5.8 meq/L 3.5-5.1 wyau=882) CHLORIDE (BEAKER) (test 103 meq/L 98-107 wfaa=491) CO2 (BEAKER) (test 24 meq/L 22-29 vstm=687) BLOOD UREA NITROGEN 27 mg/dL 7-21 (BEAKER) (test uuih=627) CREATININE (BEAKER) (test 1.17 mg/dL 0.57-1.25 obht=245) GLUCOSE RANDOM (BEAKER) 111 mg/dL 70-105 (test vsgv=523) CALCIUM (BEAKER) (test 11.0 mg/dL 8.4-10.2 xvdp=961) AST (SGOT) (BEAKER) (test 28 U/L 5-34 ufgz=077) ALT (SGPT) (BEAKER) (test 19 U/L 6-55 hmpq=006) EGFR (BEAKER) (test 65 mL/min/1.73 sq m ESTIMATED GFR IS NOT zyup=5842) ACCURATE CREATININE CLEARANCE IN PREDICTING GLOMERULAR FILTRATION RATE. ESTIMATED GFR IS NOT APPLICABLE FOR DIALYSIS PATIENTS. Specimen slightly ictericBILIRUBIN, [id number] 15:06:00 Test Item Value Reference Range Comments BILIRUBIN DIRECT (BEAKER) (test azlx=707) 3.0 mg/dL 0.1-0.5 PROTHROMBIN [id number] 14:42:00 Test Item Value Reference Range Comments PROTIME (BEAKER) (test zdma=748) 19.1 seconds 11.7-14.7 INR (BEAKER) (test qzfi=139) 1.6 <=5.9 RECOMMENDED COUMADIN/WARFARIN INR THERAPY RANGESSTANDARD DOSE: 2.0 - 3.0 Includes: PROPHYLAXIS forvenous thrombosis, systemic embolization; TREATMENT for venous thrombosis and/or pulmonary embolus.HIGH RISK: Target INR is 2.5-3.5 for patients with mechanical heart valves.CBC W/PLT COUNT & AUTO [id number] 14:36:00 Test Item Value Reference Range Comments WHITE BLOOD CELL COUNT (BEAKER) (test ljgg=858) 5.5 K/ L 3.5-10.5 RED BLOOD CELL COUNT (BEAKER) (test tfot=540) 2.84 M/ L 4.63-6.08 HEMOGLOBIN (BEAKER) (test jcky=229) 9.5 GM/DL 13.7-17.5 HEMATOCRIT (BEAKER) (test cxzv=411) 28.8 % 40.1-51.0 MEAN CORPUSCULAR VOLUME (BEAKER) (test imlo=508) 101.4 fL 79.0-92.2 MEAN CORPUSCULAR HEMOGLOBIN (BEAKER) (test 33.5 pg 25.7-32.2 cwvr=855) MEAN CORPUSCULAR HEMOGLOBIN CONC (BEAKER) (test 33.0 GM/DL 32.3-36.5 cydm=685) RED CELL DISTRIBUTION WIDTH (BEAKER) (test 19.4 % 11.6-14.4 scrf=073) PLATELET COUNT (BEAKER) (test foqk=072) 65 K/CU MM 150-450 MEAN PLATELET VOLUME (BEAKER) (test nfsq=018) 8.8 fL 9.4-12.4 NUCLEATED RED BLOOD CELLS (BEAKER) (test 0 /100 WBC 0-0 cnaa=900) NEUTROPHILS RELATIVE PERCENT (BEAKER) (test 66 % dbop=421) LYMPHOCYTES RELATIVE PERCENT (BEAKER) (test 14 % cuwb=603) MONOCYTES RELATIVE PERCENT (BEAKER) (test 15 % awxa=882) EOSINOPHILS RELATIVE PERCENT (BEAKER) (test 4 % ewzk=950) BASOPHILS RELATIVE PERCENT (BEAKER) (test 0 % naqy=800) NEUTROPHILS ABSOLUTE COUNT (BEAKER) (test 3.58 K/ L 1.78-5.38 jvft=758) LYMPHOCYTES ABSOLUTE COUNT (BEAKER) (test 0.78 K/ L 1.32-3.57 rmho=783) MONOCYTES ABSOLUTE COUNT (BEAKER) (test cqlc=532) 0.79 K/ L 0.30-0.82 EOSINOPHILS ABSOLUTE COUNT (BEAKER) (test 0.23 K/ L 0.04-0.54 gkci=471) BASOPHILS ABSOLUTE COUNT (BEAKER) (test frob=260) 0.02 K/ L 0.01-0.08 IMMATURE GRANULOCYTES-RELATIVE PERCENT (BEAKER) 1 % 0-1 (test zltn=7368) RAD, KNEE, COMPLETE (4 VIEWS), [id number] 11:15:00Reason for exam:->FALL , PAINFINAL REPORT Bilateral [...] extensive bilateral vascular calcifications. Signed: Armin Quezada MDReport Verified Date/Time: 01/06/2018 11:15:08 Reading Location: [facility] Radiology Reading Room RAD, KNEE, COMPLETE (4 VIEWS), [id number] 11:15:00Reason for exam:->FALL, PAINFINAL REPORT Bilateral knee [...] extensive bilateral vascular calcifications. Signed: Armin Quezada MDReport Verified Date/Time: 01/06/2018 11:15:08 Reading Location: [facility] Radiology Reading Room CBC W/PLT COUNT & AUTO [id number] 10: 58:00 Test Item Value Reference Range Comments WHITE BLOOD CELL COUNT (BEAKER) (test lwrz=147) 2.9 K/ L 3.5-10.5 RED BLOOD CELL COUNT (BEAKER) (test wisw=925) 2.27 M/ L 4.63-6.08 HEMOGLOBIN (BEAKER) (test uoor=218) 7.1 GM/DL 13.7-17.5 HEMATOCRIT (BEAKER) (test owdm=289) 21.0 % 40.1-51.0 MEAN CORPUSCULAR VOLUME (BEAKER) (test hywb=406) 92.5 fL 79.0-92.2 MEAN CORPUSCULAR HEMOGLOBIN (BEAKER) (test 31.3 pg 25.7-32.2 pmbc=399) MEAN CORPUSCULAR HEMOGLOBIN CONC (BEAKER) (test 33.8 GM/DL 32.3-36.5 zdjg=413) RED CELL DISTRIBUTION WIDTH (BEAKER) (test 17.2 % 11.6-14.4 jsbs=471) PLATELET COUNT (BEAKER) (test mqze=258) 42 K/CU MM 150-450 MEAN PLATELET VOLUME (BEAKER) (test dajl=260) 10.1 fL 9.4-12.4 NUCLEATED RED BLOOD CELLS (BEAKER) (test 0 /100 WBC 0-0 bevd=319) NEUTROPHILS RELATIVE PERCENT (BEAKER) (test 77 % oxuu=260) LYMPHOCYTES RELATIVE PERCENT (BEAKER) (test 12 % wabi=212) MONOCYTES RELATIVE PERCENT (BEAKER) (test 10 % qmvq=020) EOSINOPHILS RELATIVE PERCENT (BEAKER) (test 1 % plvy=429) BASOPHILS RELATIVE PERCENT (BEAKER) (test 0 % upis=034) NEUTROPHILS ABSOLUTE COUNT (BEAKER) (test 2.21 K/ L 1.78-5.38 ubld=206) LYMPHOCYTES ABSOLUTE COUNT (BEAKER) (test 0.33 K/ L 1.32-3.57 qwfq=033) MONOCYTES ABSOLUTE COUNT (BEAKER) (test qlkd=698) 0.30 K/ L 0.30-0.82 EOSINOPHILS ABSOLUTE COUNT (BEAKER) (test 0.03 K/ L 0.04-0.54 ubbo=643) BASOPHILS ABSOLUTE COUNT (BEAKER) (test kbei=458) 0.00 K/ L 0.01-0.08 IMMATURE GRANULOCYTES-RELATIVE PERCENT (BEAKER) 0 % 0-1 (test qsgp=3696) [id number] 06:06:00 Test Item Value Reference Range Comments PHOSPHORUS (BEAKER) (test awsj=506) 3.6 mg/dL 2.3-4.7 [id number] 06:06:00 Test Item Value Reference Range Comments MAGNESIUM (BEAKER) (test tzln=812) 2.0 mg/dL 1.6-2.6 BASIC METABOLIC [id number] 06:06:00 Test Item Value Reference Range Comments SODIUM (BEAKER) (test 130 meq/L 136-145 spnv=532) POTASSIUM (BEAKER) (test 4.4 meq/L 3.5-5.1 migl=214) CHLORIDE (BEAKER) (test 100 meq/L 98-107 beiu=359) CO2 (BEAKER) (test 23 meq/L 22-29 iufi=753) BLOOD UREA NITROGEN 21 mg/dL 7-21 (BEAKER) (test hwux=146) CREATININE (BEAKER) (test 1.11 mg/dL 0.57-1.25 fyhy=766) GLUCOSE RANDOM (BEAKER) 120 mg/dL 70-105 (test ijgw=009) CALCIUM (BEAKER) (test 9.4 mg/dL 8.4-10.2 seja=883) EGFR (BEAKER) (test 70 mL/min/1.73 sq m ESTIMATED GFR IS NOT fqys=6562) ACCURATE CREATININE CLEARANCE IN PREDICTING GLOMERULAR FILTRATION RATE. ESTIMATED GFR IS NOT APPLICABLE FOR DIALYSIS PATIENTS. Specimen slightly ictericPROTHROMBIN TIME/[id number] 06:02:00 Test Item Value Reference Range Comments PROTIME (BEAKER) (test lexz=231) 22.9 seconds 11.7-14.7 INR (BEAKER) (test expv=740) 2.0 <=5.9 RECOMMENDED COUMADIN/WARFARIN INR THERAPY RANGESSTANDARD DOSE: 2.0 - 3.0 Includes: PROPHYLAXIS forvenous thrombosis, systemic embolization; TREATMENT for venous thrombosis and/or pulmonary embolus.HIGH RISK: Target INR is 2.5-3.5 for patients with mechanical heart valves.CALCIUM, [id number] 06:01:00 Test Item Value Reference Range Comments CALCIUM IONIZED (BEAKER) (test dhrl=979) 1.11 mmol/L 1.12-1.27 PH, BLOOD (BEAKER) (test bitp=0402) 7.53 CORTISOL,60 [id number] 23:20:00 Test Item Value Reference Range Comments CORTISOL BASELINE NETWORKED (BEAKER) (test 4.8 mcg/dL wvnc=7691) CORTISOL 30 MINUTE NETWORKED (BEAKER) (test 9.2 mcg/dL ypfn=9129) CORTISOL, 60 MINUTE (BEAKER) (test ofce=9487) 12.6 ug/dL ACTH STIMULATION TEST INTERPRETATION GUIDELINES(Synonyms: [...] study by Mindy et al (NEVAEH 2000,283( 8):9071-52), the ACTH Stimulation Test provides important prognostic [...] serum cortisollevel 60 minutes after cosyntropin administration.CORTISOL,30 [id number] 22:35:00 Test Item Value Reference Range Comments CORTISOL BASELINE NETWORKED (BEAKER) (test 4.8 mcg/dL mzfj=4571) CORTISOL, 30 MINUTE (BEAKER) (test qime=5313) 9.2 ug/dL ACTH STIMULATION TEST INTERPRETATION GUIDELINES(Synonyms: [...] Draw serum cortisollevel 60 minutes after cosyntropin administration.CORTISOL,[id number] 22:35:00 Test Item Value Reference Range Comments CORTISOL, BASELINE (BEAKER) (test mrew=8001) 4.8 ug/dL ACTH STIMULATION TEST INTERPRETATION GUIDELINES(Synonyms: [...] serum cortisollevel 60 minutes after cosyntropin administration.U/S, [id number] 17:54:00Reason for exam:->therapeuticFINAL REPORT History: Ascites. PROCEDURE: Following informed written consent,the patient's right lower quadrant was prepped and draped in the usual sterile manner. 2% lidocaine was given locally for anesthesia. No conscious sedation was administered. Using ultrasound guidance, a 5 Polish one-step catheter was advanced percutaneously into the [...] Verified Date/Time: 01/05/2018 17: 54:16 Reading Location: [address] Ultrasound Reading Room [id number] 11:19:00 Test Item Value Reference Range Comments CORTISOL, TOTAL (BEAKER) (test xyvr=4993) 2.7 ug/dL 3.7-19.4 [id number] 10:21:00 Test Item Value Reference Range Comments PHOSPHORUS (BEAKER) (test darf=609) 2.8 mg/dL 2.3-4.7 [id number] 10:21:00 Test Item Value Reference Range Comments MAGNESIUM (BEAKER) (test jfnt=328) 1.9 mg/dL 1.6-2.6 BASIC METABOLIC [id number] 10:21:00 Test Item Value Reference Range Comments SODIUM (BEAKER) (test 127 meq/L 136-145 ojal=708) POTASSIUM (BEAKER) (test 5.0 meq/L 3.5-5.1 mxgm=674) CHLORIDE (BEAKER) (test 100 meq/L 98-107 lqud=488) CO2 (BEAKER) (test 22 meq/L 22-29 dzeb=227) BLOOD UREA NITROGEN 25 mg/dL 7-21 (BEAKER) (test onhx=346) CREATININE (BEAKER) (test 1.17 mg/dL 0.57-1.25 hrvf=925) GLUCOSE RANDOM (BEAKER) 84 mg/dL 70-105 (test vnud=052) CALCIUM (BEAKER) (test 8.7 mg/dL 8.4-10.2 feun=176) EGFR (BEAKER) (test 65 mL/min/1.73 sq m ESTIMATED GFR IS NOT qqul=1040) ACCURATE CREATININE CLEARANCE IN PREDICTING GLOMERULAR FILTRATION RATE. ESTIMATED GFR IS NOT APPLICABLE FOR DIALYSIS PATIENTS. Specimen slightly ictericCBC W/PLT COUNT & AUTO [id number] 08:42 :00 Test Item Value Reference Range Comments WHITE BLOOD CELL COUNT (BEAKER) (test rzgl=834) 2.7 K/ L 3.5-10.5 RED BLOOD CELL COUNT (BEAKER) (test tpay=434) 2.33 M/ L 4.63-6.08 HEMOGLOBIN (BEAKER) (test qtre=066) 7.3 GM/DL 13.7-17.5 HEMATOCRIT (BEAKER) (test hlaj=688) 22.0 % 40.1-51.0 MEAN CORPUSCULAR VOLUME (BEAKER) (test eesk=351) 94.4 fL 79.0-92.2 MEAN CORPUSCULAR HEMOGLOBIN (BEAKER) (test 31.3 pg 25.7-32.2 thvm=107) MEAN CORPUSCULAR HEMOGLOBIN CONC (BEAKER) (test 33.2 GM/DL 32.3-36.5 xcva=733) RED CELL DISTRIBUTION WIDTH (BEAKER) (test 17.2 % 11.6-14.4 zfhm=175) PLATELET COUNT (BEAKER) (test nqce=579) 45 K/CU MM 150-450 MEAN PLATELET VOLUME (BEAKER) (test hkem=569) 9.3 fL 9.4-12.4 NUCLEATED RED BLOOD CELLS (BEAKER) (test 0 /100 WBC 0-0 pvxw=355) NEUTROPHILS RELATIVE PERCENT (BEAKER) (test 60 % azrl=585) LYMPHOCYTES RELATIVE PERCENT (BEAKER) (test 17 % jbfc=019) MONOCYTES RELATIVE PERCENT (BEAKER) (test 16 % ssiq=225) EOSINOPHILS RELATIVE PERCENT (BEAKER) (test 6 % qnpk=335) BASOPHILS RELATIVE PERCENT (BEAKER) (test 0 % iugs=404) NEUTROPHILS ABSOLUTE COUNT (BEAKER) (test 1.63 K/ L 1.78-5.38 thtk=423) LYMPHOCYTES ABSOLUTE COUNT (BEAKER) (test 0.45 K/ L 1.32-3.57 euin=732) MONOCYTES ABSOLUTE COUNT (BEAKER) (test hmgn=315) 0.44 K/ L 0.30-0.82 EOSINOPHILS ABSOLUTE COUNT (BEAKER) (test 0.16 K/ L 0.04-0.54 ukec=245) BASOPHILS ABSOLUTE COUNT (BEAKER) (test gutl=554) 0.01 K/ L 0.01-0.08 IMMATURE GRANULOCYTES-RELATIVE PERCENT (BEAKER) 1 % 0-1 (test kifm=3646) (MANUAL DIFFERENTIAL)2018-01-05 08:42:00 Test Item Value Reference Range Comments TOTAL COUNTED (BEAKER) (test ixhq=5291) WBC MORPHOLOGY (BEAKER) (test hnid=921) Normal PLT MORPHOLOGY (BEAKER) (test ssvm=679) Normal ANISOCYTOSIS (BEAKER) (test rxwn=519) 1+ few CALCIUM, [id number] 08:10:00 Test Item Value Reference Range Comments CALCIUM IONIZED (BEAKER) (test flro=942) 1.08 mmol/L 1.12-1.27 PH, BLOOD (BEAKER) (test olvo=2041) 7.44 PROTHROMBIN [id number] 07:12:00 Test Item Value Reference Range Comments PROTIME (BEAKER) (test imle=476) 22.4 seconds 11.7-14.7 INR (BEAKER) (test srrd=553) 2.0 <=5.9 RECOMMENDED COUMADIN/WARFARIN INR THERAPY RANGESSTANDARD DOSE: 2.0 - 3.0 Includes: PROPHYLAXIS forvenous thrombosis, systemic embolization; TREATMENT for venous thrombosis and/or pulmonary embolus.HIGH RISK: Target INR is 2.5-3.5 for patients with mechanical heart valves.[id number] 17:54:00 Test Item Value Reference Range Comments SODIUM (BEAKER) (test gxam=691) 129 meq/L 136-145 POTASSIUM (BEAKER) (test lxfs=025) 5.5 meq/L 3.5-5.1 CHLORIDE (BEAKER) (test mfso=152) 101 meq/L 98-107 CO2 (BEAKER) (test pwae=411) 26 meq/L 22-29 Call [phone] with resultsCBC (HEMOGRAM ONLY)2018-01-04 07:16:00 Test Item Value Reference Range Comments WHITE BLOOD CELL COUNT (BEAKER) (test nlfl=787) 2.9 K/ L 3.5-10.5 RED BLOOD CELL COUNT (BEAKER) (test kzkh=535) 2.25 M/ L 4.63-6.08 HEMOGLOBIN (BEAKER) (test pzkd=911) 7.3 GM/DL 13.7-17.5 HEMATOCRIT (BEAKER) (test jgtl=309) 21.3 % 40.1-51.0 MEAN CORPUSCULAR VOLUME (BEAKER) (test umsj=692) 94.7 fL 79.0-92.2 MEAN CORPUSCULAR HEMOGLOBIN (BEAKER) (test 32.4 pg 25.7-32.2 xacc=106) MEAN CORPUSCULAR HEMOGLOBIN CONC (BEAKER) (test 34.3 GM/DL 32.3-36.5 rhnw=106) RED CELL DISTRIBUTION WIDTH (BEAKER) (test 17.6 % 11.6-14.4 wsvf=906) PLATELET COUNT (BEAKER) (test qlys=128) 59 K/CU MM 150-450 MEAN PLATELET VOLUME (BEAKER) (test ageu=791) 11.3 fL 9.4-12.4 NUCLEATED RED BLOOD CELLS (BEAKER) (test 0 /100 WBC 0-0 kczg=410) COMPREHENSIVE METABOLIC [id number] 06:49:00 Test Item Value Reference Range Comments TOTAL PROTEIN (BEAKER) 5.3 gm/dL 6.0-8.3 Specimen slightly (test xgvz=045) hemolyzed ALBUMIN (BEAKER) (test 3.3 g/dL 3.5-5.0 Specimen slightly swon=9435) hemolyzed ALKALINE PHOSPHATASE 81 U/L 40-150 (BEAKER) (test kcgv=914) BILIRUBIN TOTAL (BEAKER) 2.4 mg/dL 0.2-1.2 Specimen slightly (test mlgl=081) hemolyzed SODIUM (BEAKER) (test 127 meq/L 136-145 ulhm=272) POTASSIUM (BEAKER) (test 5.7 meq/L 3.5-5.1 Specimen slightly ncir=879) hemolyzed CHLORIDE (BEAKER) (test 100 meq/L 98-107 fyru=006) CO2 (BEAKER) (test 20 meq/L 22-29 gauj=040) BLOOD UREA NITROGEN 22 mg/dL 7-21 (BEAKER) (test tjsj=911) CREATININE (BEAKER) (test 1.14 mg/dL 0.57-1.25 Specimen slightly lrvr=478) hemolyzed GLUCOSE RANDOM (BEAKER) 96 mg/dL 70-105 (test hzfc=691) CALCIUM (BEAKER) (test 8.9 mg/dL 8.4-10.2 guov=177) AST (SGOT) (BEAKER) (test 30 U/L 5-34 Specimen slightly oipg=683) hemolyzed ALT (SGPT) (BEAKER) (test 8 U/L 6-55 Specimen slightly qcjp=736) hemolyzed EGFR (BEAKER) (test 67 mL/min/1.73 sq m ESTIMATED GFR IS NOT yjba=9036) ACCURATE CREATININE CLEARANCE IN PREDICTING GLOMERULAR FILTRATION RATE. ESTIMATED GFR IS NOT APPLICABLE FOR DIALYSIS PATIENTS. Specimen slightly ictericPROTHROMBIN [id number] 06:15:00 Test Item Value Reference Range Comments PROTIME (BEAKER) (test uuiy=359) 22.7 seconds 11.7-14.7 INR (BEAKER) (test jhst=190) 2.0 <=5.9 RECOMMENDED COUMADIN/WARFARIN INR THERAPY RANGESSTANDARD DOSE: 2.0 - 3.0 Includes: PROPHYLAXIS forvenous thrombosis, systemic embolization; TREATMENT for venous thrombosis and/or pulmonary embolus.HIGH RISK: Target INR is 2.5-3.5 for patients with mechanical heart valves.VITAMIN B12 AND [id number] 16:39 :00 Test Item Value Reference Range Comments VITAMIN B12 (BEAKER) (test ifkl=801) 829 pg/mL 213-816 FOLATE (BEAKER) (test mrer=554) 18.9 ng/mL >=7.0 CALCIUM, [id number] 07:14:00 Test Item Value Reference Range Comments CALCIUM IONIZED (BEAKER) (test peqm=393) 1.08 mmol/L 1.12-1.27 PH, BLOOD (BEAKER) (test stdo=9762) 7.41 COMPREHENSIVE METABOLIC [id number] 07:00:00 Test Item Value Reference Range Comments TOTAL PROTEIN (BEAKER) 5.0 gm/dL 6.0-8.3 (test soss=142) ALBUMIN (BEAKER) (test 3.1 g/dL 3.5-5.0 qnwt=2810) ALKALINE PHOSPHATASE 65 U/L 40-150 (BEAKER) (test yhgz=497) BILIRUBIN TOTAL (BEAKER) 2.5 mg/dL 0.2-1.2 (test logy=509) SODIUM (BEAKER) (test 127 meq/L 136-145 fehr=134) POTASSIUM (BEAKER) (test 4.7 meq/L 3.5-5.1 uwka=274) CHLORIDE (BEAKER) (test 99 meq/L 98-107 stkg=505) CO2 (BEAKER) (test 23 meq/L 22-29 xdrd=456) BLOOD UREA NITROGEN 21 mg/dL 7-21 (BEAKER) (test dbav=775) CREATININE (BEAKER) (test 1.13 mg/dL 0.57-1.25 nmly=772) GLUCOSE RANDOM (BEAKER) 92 mg/dL 70-105 (test xcqc=606) CALCIUM (BEAKER) (test 8.9 mg/dL 8.4-10.2 rhrf=830) AST (SGOT) (BEAKER) (test 18 U/L 5-34 lzly=480) ALT (SGPT) (BEAKER) (test 8 U/L 6-55 axfc=981) EGFR (BEAKER) (test 68 mL/min/1.73 sq m ESTIMATED GFR IS NOT pmqq=5682) ACCURATE CREATININE CLEARANCE IN PREDICTING GLOMERULAR FILTRATION RATE. ESTIMATED GFR IS NOT APPLICABLE FOR DIALYSIS PATIENTS. [id number] 06:37:00 Test Item Value Reference Range Comments PHOSPHORUS (BEAKER) (test wcyl=044) 3.2 mg/dL 2.3-4.7 [id number] 06:37:00 Test Item Value Reference Range Comments MAGNESIUM (BEAKER) (test vkns=323) 1.9 mg/dL 1.6-2.6 CBC (HEMOGRAM ONLY)2018-01-03 06:25:00 Test Item Value Reference Range Comments WHITE BLOOD CELL COUNT (BEAKER) (test kgmd=935) 3.1 K/ L 3.5-10.5 RED BLOOD CELL COUNT (BEAKER) (test whrx=466) 2.31 M/ L 4.63-6.08 HEMOGLOBIN (BEAKER) (test dbbo=405) 7.4 GM/DL 13.7-17.5 HEMATOCRIT (BEAKER) (test okmv=616) 21.6 % 40.1-51.0 MEAN CORPUSCULAR VOLUME (BEAKER) (test aqre=067) 93.5 fL 79.0-92.2 MEAN CORPUSCULAR HEMOGLOBIN (BEAKER) (test 32.0 pg 25.7-32.2 tbae=624) MEAN CORPUSCULAR HEMOGLOBIN CONC (BEAKER) (test 34.3 GM/DL 32.3-36.5 gjkh=590) RED CELL DISTRIBUTION WIDTH (BEAKER) (test 17.4 % 11.6-14.4 tvab=126) PLATELET COUNT (BEAKER) (test fpnu=339) 50 K/CU MM 150-450 MEAN PLATELET VOLUME (BEAKER) (test erwm=944) 10.5 fL 9.4-12.4 NUCLEATED RED BLOOD CELLS (BEAKER) (test 0 /100 WBC 0-0 leza=178) PROTHROMBIN [id number] 06:09:00 Test Item Value Reference Range Comments PROTIME (BEAKER) (test figx=273) 22.2 seconds 11.7-14.7 INR (BEAKER) (test mldm=082) 2.0 <=5.9 RECOMMENDED COUMADIN/WARFARIN INR THERAPY RANGESSTANDARD DOSE: 2.0 - 3.0 Includes: PROPHYLAXIS forvenous thrombosis, systemic embolization; TREATMENT for venous thrombosis and/or pulmonary embolus.HIGH RISK: Target INR is 2.5-3.5 for patients with mechanical heart valves.[id number] 07:54:00 Test Item Value Reference Range Comments PHOSPHORUS (BEAKER) (test vchs=132) 3.2 mg/dL 2.3-4.7 [id number] 07:54:00 Test Item Value Reference Range Comments MAGNESIUM (BEAKER) (test nnxp=131) 1.4 mg/dL 1.6-2.6 COMPREHENSIVE METABOLIC [id number] 07:54:00 Test Item Value Reference Range Comments TOTAL PROTEIN (BEAKER) 5.3 gm/dL 6.0-8.3 (test qmiq=712) ALBUMIN (BEAKER) (test 3.4 g/dL 3.5-5.0 xody=9077) ALKALINE PHOSPHATASE 55 U/L 40-150 (BEAKER) (test dyek=233) BILIRUBIN TOTAL (BEAKER) 3.9 mg/dL 0.2-1.2 (test tdga=036) SODIUM (BEAKER) (test 131 meq/L 136-145 kdxa=184) POTASSIUM (BEAKER) (test 4.3 meq/L 3.5-5.1 qiao=225) CHLORIDE (BEAKER) (test 101 meq/L 98-107 hoqs=518) CO2 (BEAKER) (test 23 meq/L 22-29 yqfd=757) BLOOD UREA NITROGEN 19 mg/dL 7-21 (BEAKER) (test qncd=260) CREATININE (BEAKER) (test 0.97 mg/dL 0.57-1.25 cssn=116) GLUCOSE RANDOM (BEAKER) 80 mg/dL 70-105 (test gtgq=570) CALCIUM (BEAKER) (test 9.4 mg/dL 8.4-10.2 tnqq=223) AST (SGOT) (BEAKER) (test 17 U/L 5-34 cqrw=549) ALT (SGPT) (BEAKER) (test 8 U/L 6-55 jawo=632) EGFR (BEAKER) (test 81 mL/min/1.73 sq m ESTIMATED GFR IS NOT jtvx=5863) ACCURATE CREATININE CLEARANCE IN PREDICTING GLOMERULAR FILTRATION RATE. ESTIMATED GFR IS NOT APPLICABLE FOR DIALYSIS PATIENTS. Specimen slightly ictericCBC W/PLT COUNT & AUTO [id number] 07:14 :00 Test Item Value Reference Range Comments WHITE BLOOD CELL COUNT (BEAKER) (test bcrj=783) 2.9 K/ L 3.5-10.5 RED BLOOD CELL COUNT (BEAKER) (test xkox=480) 2.55 M/ L 4.63-6.08 HEMOGLOBIN (BEAKER) (test ksve=498) 8.1 GM/DL 13.7-17.5 HEMATOCRIT (BEAKER) (test acgz=854) 23.7 % 40.1-51.0 MEAN CORPUSCULAR VOLUME (BEAKER) (test rcjf=809) 92.9 fL 79.0-92.2 MEAN CORPUSCULAR HEMOGLOBIN (BEAKER) (test 31.8 pg 25.7-32.2 uphv=194) MEAN CORPUSCULAR HEMOGLOBIN CONC (BEAKER) (test 34.2 GM/DL 32.3-36.5 uzit=375) RED CELL DISTRIBUTION WIDTH (BEAKER) (test 17.5 % 11.6-14.4 lhps=824) PLATELET COUNT (BEAKER) (test lcjd=132) 50 K/CU MM 150-450 MEAN PLATELET VOLUME (BEAKER) (test sfno=398) 9.5 fL 9.4-12.4 NUCLEATED RED BLOOD CELLS (BEAKER) (test 0 /100 WBC 0-0 tvbv=073) NEUTROPHILS RELATIVE PERCENT (BEAKER) (test 57 % rbcs=007) LYMPHOCYTES RELATIVE PERCENT (BEAKER) (test 17 % wzad=645) MONOCYTES RELATIVE PERCENT (BEAKER) (test 18 % mqim=355) EOSINOPHILS RELATIVE PERCENT (BEAKER) (test 7 % pyts=857) BASOPHILS RELATIVE PERCENT (BEAKER) (test 0 % cwdv=456) NEUTROPHILS ABSOLUTE COUNT (BEAKER) (test 1.65 K/ L 1.78-5.38 azeg=237) LYMPHOCYTES ABSOLUTE COUNT (BEAKER) (test 0.49 K/ L 1.32-3.57 zcic=888) MONOCYTES ABSOLUTE COUNT (BEAKER) (test jvvn=583) 0.51 K/ L 0.30-0.82 EOSINOPHILS ABSOLUTE COUNT (BEAKER) (test 0.20 K/ L 0.04-0.54 kqfj=383) BASOPHILS ABSOLUTE COUNT (BEAKER) (test ahkx=492) 0.01 K/ L 0.01-0.08 IMMATURE GRANULOCYTES-RELATIVE PERCENT (BEAKER) 1 % 0-1 (test ghmz=7620) (MANUAL DIFFERENTIAL)2018-01-02 07:14:00 Test Item Value Reference Range Comments TOTAL COUNTED (BEAKER) (test mkhp=4109) CALCIUM, [id number] 07:04:00 Test Item Value Reference Range Comments CALCIUM IONIZED (BEAKER) (test ooet=515) 1.07 mmol/L 1.12-1.27 PH, BLOOD (BEAKER) (test quak=9070) 7.49 PROTHROMBIN [id number] 06:42:00 Test Item Value Reference Range Comments PROTIME (BEAKER) (test jsql=747) 24.6 seconds 11.7-14.7 INR (BEAKER) (test dyjf=515) 2.2 <=5.9 RECOMMENDED COUMADIN/WARFARIN INR THERAPY RANGESSTANDARD DOSE: 2.0 - 3.0 Includes: PROPHYLAXIS forvenous thrombosis, systemic embolization; TREATMENT for venous thrombosis and/or pulmonary embolus.HIGH RISK: Target INR is 2.5-3.5 for patients with mechanical heart valves.CYTOMEGALOVIRUS ANTIBODY, [id number] 14:58:00 Test Item Value Reference Range Comments CYTOMEGALOVIRUS IGG ANTIBODY (BEAKER) (test Positive iydw=125) CYTOMEGALOVIRUS ANTIBODY, [id number] 14:58:00 Test Item Value Reference Range Comments CYTOMEGALOVIRUS IGM ANTIBODY (BEAKER) (test Negative oqrf=416) EBV-VCA ANTIBODY, [id number] 14:58:00 Test Item Value Reference Range Comments MARCELLUS-DAVIS VCA IGG (BEAKER) (test lidm=766) Positive EBV-VCA ANTIBODY, [id number] 14:58:00 Test Item Value Reference Range Comments MARCELLUS-DAVIS VCA IGM (BEAKER) (test vapl=912) Negative BODY FLUID CELL COUNT WITH [id number] 14:27:00 Test Item Value Reference Range Comments APPEARANCE FLUID (BEAKER) (test jlsm=551) Slightly Hazy Clear COLOR FLUID (BEAKER) (test mspc=708) Yellow Colorless, Straw RBC FLUID (BEAKER) (test vrol=641) 378 /cu mm <=1 ADJUSTED WBC FLUID (BEAKER) (test nmzv=0478) 84 /cu mm <=5 LINING CELLS (BEAKER) (test mwdg=9149) 17 /cu mm <=1 NEUTROPHILS FLUID (BEAKER) (test ulqw=6395) 1 % LYMPHS FLUID (BEAKER) (test uibr=679) 14 % MONO/MACROPHAGE FLUID (BEAKER) (test 85 % iuco=679) EOSINOPHILS FLUID (BEAKER) (test zuro=689) 0 % BASO FLUID (BEAKER) (test eknf=711) 0 % CONTAINER BODY FLUID (BEAKER) (test EDTA Tube jtjq=0309) U/S, [id number] 11:17:00Reason for exam:->ascitesFINAL REPORT Ultrasound guided paracentesis, 01/01/2018. Clinical History:Ascites. Sedation: None. Life Enrichment Assistant: Paul Butler MD Freight Loading Supervisor: None. Estimated Blood Loss: < 1 [...] was achieved with 1% lidocaine, a 5 Polish one-step catheter was advanced into the peritoneal cavity under ultrasound guidance. After completion of drainage, the catheter was removed. There was no evidence ofcomplication. Patient Disposition: The patient was transferred to the inpatient unit from the ultrasound department after the paracentesis, in good condition. Impression:Successful ultrasound guided paracentesis. Signed: Paul Butler MDReport Verified Date/Time: 01/01/2018 11:17:26 Reading Location: [address] Ultrasound Reading Room CBC W/PLT COUNT & AUTO [id number] 08:55:00 Test Item Value Reference Range Comments WHITE BLOOD CELL COUNT (BEAKER) (test dgqt=823) 2.6 K/ L 3.5-10.5 RED BLOOD CELL COUNT (BEAKER) (test vihr=948) 2.17 M/ L 4.63-6.08 HEMOGLOBIN (BEAKER) (test svsw=136) 6.9 GM/DL 13.7-17.5 HEMATOCRIT (BEAKER) (test xwqu=025) 20.6 % 40.1-51.0 MEAN CORPUSCULAR VOLUME (BEAKER) (test xmxj=031) 94.9 fL 79.0-92.2 MEAN CORPUSCULAR HEMOGLOBIN (BEAKER) (test 31.8 pg 25.7-32.2 pxgi=601) MEAN CORPUSCULAR HEMOGLOBIN CONC (BEAKER) (test 33.5 GM/DL 32.3-36.5 vjqn=661) RED CELL DISTRIBUTION WIDTH (BEAKER) (test 17.0 % 11.6-14.4 hnuy=086) PLATELET COUNT (BEAKER) (test zwdx=002) 43 K/CU MM 150-450 MEAN PLATELET VOLUME (BEAKER) (test wpey=504) 9.3 fL 9.4-12.4 NUCLEATED RED BLOOD CELLS (BEAKER) (test 0 /100 WBC 0-0 akkk=453) NEUTROPHILS RELATIVE PERCENT (BEAKER) (test 62 % yoco=113) LYMPHOCYTES RELATIVE PERCENT (BEAKER) (test 13 % cqwt=162) MONOCYTES RELATIVE PERCENT (BEAKER) (test 18 % skel=080) EOSINOPHILS RELATIVE PERCENT (BEAKER) (test 6 % blyx=571) BASOPHILS RELATIVE PERCENT (BEAKER) (test 0 % mntt=174) NEUTROPHILS ABSOLUTE COUNT (BEAKER) (test 1.58 K/ L 1.78-5.38 lslk=146) LYMPHOCYTES ABSOLUTE COUNT (BEAKER) (test 0.33 K/ L 1.32-3.57 wtph=771) MONOCYTES ABSOLUTE COUNT (BEAKER) (test dyyd=613) 0.46 K/ L 0.30-0.82 EOSINOPHILS ABSOLUTE COUNT (BEAKER) (test 0.15 K/ L 0.04-0.54 pvtt=495) BASOPHILS ABSOLUTE COUNT (BEAKER) (test yynh=808) 0.01 K/ L 0.01-0.08 IMMATURE GRANULOCYTES-RELATIVE PERCENT (BEAKER) 1 % 0-1 (test oddb=8075) (MANUAL DIFFERENTIAL)2018-01-01 08:55:00 Test Item Value Reference Range Comments TOTAL COUNTED (BEAKER) (test cbcs=6306) CALCIUM, [id number] 07:43:00 Test Item Value Reference Range Comments CALCIUM IONIZED (BEAKER) (test ucxv=826) 1.14 mmol/L 1.12-1.27 PH, BLOOD (BEAKER) (test gpji=3676) 7.52 [id number] 06:11:00 Test Item Value Reference Range Comments PHOSPHORUS (BEAKER) (test phnn=103) 2.5 mg/dL 2.3-4.7 [id number] 06:11:00 Test Item Value Reference Range Comments MAGNESIUM (BEAKER) (test uijj=395) 1.7 mg/dL 1.6-2.6 COMPREHENSIVE METABOLIC [id number] 06:11:00 Test Item Value Reference Range Comments TOTAL PROTEIN (BEAKER) 5.6 gm/dL 6.0-8.3 (test pske=220) ALBUMIN (BEAKER) (test 3.6 g/dL 3.5-5.0 ybtj=0853) ALKALINE PHOSPHATASE 68 U/L 40-150 (BEAKER) (test uoys=697) BILIRUBIN TOTAL (BEAKER) 2.7 mg/dL 0.2-1.2 (test tbak=404) SODIUM (BEAKER) (test 132 meq/L 136-145 imwe=808) POTASSIUM (BEAKER) (test 4.9 meq/L 3.5-5.1 ilys=413) CHLORIDE (BEAKER) (test 102 meq/L 98-107 xayd=697) CO2 (BEAKER) (test 24 meq/L 22-29 ecsh=422) BLOOD UREA NITROGEN 20 mg/dL 7-21 (BEAKER) (test ptql=124) CREATININE (BEAKER) (test 1.17 mg/dL 0.57-1.25 zutb=761) GLUCOSE RANDOM (BEAKER) 92 mg/dL 70-105 (test msgj=997) CALCIUM (BEAKER) (test 9.7 mg/dL 8.4-10.2 xbxt=793) AST (SGOT) (BEAKER) (test 16 U/L 5-34 qpte=139) ALT (SGPT) (BEAKER) (test 8 U/L 6-55 xhmh=421) EGFR (BEAKER) (test 65 mL/min/1.73 sq m ESTIMATED GFR IS NOT czuh=3603) ACCURATE CREATININE CLEARANCE IN PREDICTING GLOMERULAR FILTRATION RATE. ESTIMATED GFR IS NOT APPLICABLE FOR DIALYSIS PATIENTS. Specimen slightly ictericPROTHROMBIN TIME/[id number] 06:00:00 Test Item Value Reference Range Comments PROTIME (TUNG) (test zpfu=242) 24.0 seconds 11.7-14.7 INR (BEAKER) (test ksgk=993) 2.2 <=5.9 RECOMMENDED COUMADIN/WARFARIN INR THERAPY RANGESSTANDARD DOSE: 2.0 - 3.0 Includes: PROPHYLAXIS forvenous thrombosis, systemic embolization; TREATMENT for venous thrombosis and/or pulmonary embolus.HIGH RISK: Target INR is 2.5-3.5 for patients with mechanical heart valves.CT, CHEST, WITHOUT [id number] 19:24:00FINAL REPORT HISTORY: Lung nodule, >=1cm COMPARISON [...] and upper abdominal ascites. Signed: Sol Landeros MDReport Verified Date/Time: 12/31/2017 19:24:12 Reading Location: [address] Consult Reading Room 07: 24 PMPERIPHERAL BLOOD SMEAR - HOLD [id number] 19:18:00 Test Item Value Reference Range Comments PERIPHERAL SMEAR SAVE (BEAKER) prepared and saved smear, (test pbte=1084) 12/31/17 RETICULOCYTE [id number] 19:14:00 Test Item Value Reference Range Comments RETICULOCYTE COUNT PCT (BEAKER) (test wtzq=387) 3.5 % 0.5-1.8 LACTATE DEHYDROGENASE (LDH)2017-12-31 17:47:00 Test Item Value Reference Range Comments LACTATE DEHYDROGENASE (BEAKER) (test owgc=092) 112 U/L 125-220 BLOOD GAS, [id number] 17:27:00 Test Item Value Reference Range Comments PH ARTERIAL (BEAKER) (test fagp=958) 7.45 7.35-7.45 PCO2 ARTERIAL (BEAKER) (test hmfb=763) 36 mmHg 35-45 PO2 ARTERIAL (BEAKER) (test qdbv=572) 76 mmHg 80-90 O2 SATURATION ARTERIAL (BEAKER) (test gpgn=866) 96.1 % 96.0-97.0 HCO3 ARTERIAL (BEAKER) (test cdrx=450) 24 mmol/L 21-29 BASE EXCESS ARTERIAL (BEAKER) (test ooxd=221) 0.2 mmol/L -2.0-3.0 PATIENT TEMPERATURE (BEAKER) (test dzxi=2445) 36.4 C FIO2 (BEAKER) (test tpke=5532) 21.0 % MYOCARD IMAGING, MULTI, PHARM, [id number] 15:12:00FINAL REPORT PROCEDURE: Rest/Stress MYOCARDIAL PERFUSION SPECT with regadenoson\\XA9\\ CPT CODE: 89662 INDICATION: Liver transplant evaluation HISTORY: Cardiac risk [...] tracer distribution. 6. No previous [facility] study for comparison. NONINVASIVE RISK STRATIFICATION: The above findings are considered low risk (<1% annual mortality rate) based on the following criterion:- Normal orsmall myocardial perfusion defect at rest or with stress(JACC. 2012;59(9):857-81.) Signed: Mabel Napier Verified Date/Time: 12/31/2017 15:12:03 Reading Location: [address] Reading Room BILIRUBIN, [id number] 14:10:00 Test Item Value Reference Range Comments BILIRUBIN DIRECT (BEAKER) (test ojuk=399) 1.6 mg/dL 0.1-0.5 HEMOGLOBIN AND [id number] 13:22:00 Test Item Value Reference Range Comments HEMOGLOBIN (BEAKER) (test yxfd=292) 7.3 GM/DL 13.7-17.5 HEMATOCRIT (BEAKER) (test bfou=760) 21.9 % 40.1-51.0 CBC W/PLT COUNT & AUTO [id number] 11:06:00 Test Item Value Reference Range Comments WHITE BLOOD CELL COUNT (BEAKER) (test dcoo=097) 2.2 K/ L 3.5-10.5 RED BLOOD CELL COUNT (BEAKER) (test jopu=211) 2.07 M/ L 4.63-6.08 HEMOGLOBIN (BEAKER) (test gzbl=631) 6.8 GM/DL 13.7-17.5 HEMATOCRIT (BEAKER) (test nxhq=897) 19.6 % 40.1-51.0 MEAN CORPUSCULAR VOLUME (BEAKER) (test xejw=428) 94.7 fL 79.0-92.2 MEAN CORPUSCULAR HEMOGLOBIN (BEAKER) (test 32.9 pg 25.7-32.2 ofmf=397) MEAN CORPUSCULAR HEMOGLOBIN CONC (BEAKER) (test 34.7 GM/DL 32.3-36.5 hvfp=517) RED CELL DISTRIBUTION WIDTH (BEAKER) (test 16.9 % 11.6-14.4 wxyl=599) PLATELET COUNT (BEAKER) (test bjnb=416) 47 K/CU MM 150-450 MEAN PLATELET VOLUME (BEAKER) (test edpd=875) 9.7 fL 9.4-12.4 NUCLEATED RED BLOOD CELLS (BEAKER) (test 0 /100 WBC 0-0 mwew=529) NEUTROPHILS RELATIVE PERCENT (BEAKER) (test 54 % ului=537) LYMPHOCYTES RELATIVE PERCENT (BEAKER) (test 17 % solb=061) MONOCYTES RELATIVE PERCENT (BEAKER) (test 21 % hvdl=718) EOSINOPHILS RELATIVE PERCENT (BEAKER) (test 8 % dvqj=814) BASOPHILS RELATIVE PERCENT (BEAKER) (test 1 % cfnz=860) NEUTROPHILS ABSOLUTE COUNT (BEAKER) (test 1.17 K/ L 1.78-5.38 ppmn=971) LYMPHOCYTES ABSOLUTE COUNT (BEAKER) (test 0.36 K/ L 1.32-3.57 qqdn=649) MONOCYTES ABSOLUTE COUNT (BEAKER) (test yiqp=634) 0.45 K/ L 0.30-0.82 EOSINOPHILS ABSOLUTE COUNT (BEAKER) (test 0.17 K/ L 0.04-0.54 arpn=810) BASOPHILS ABSOLUTE COUNT (BEAKER) (test uiub=772) 0.01 K/ L 0.01-0.08 IMMATURE GRANULOCYTES-RELATIVE PERCENT (BEAKER) 1 % 0-1 (test iykl=5951) (MANUAL DIFFERENTIAL)2017-12-31 11:06:00 Test Item Value Reference Range Comments TOTAL COUNTED (BEAKER) (test wugw=6078) [id number] 08:37:00 Test Item Value Reference Range Comments PROTIME (BEAKER) (test nope=586) 24.0 seconds 11.7-14.7 INR (BEAKER) (test zmgl=909) 2.2 <=5.9 PARTIAL THROMBOPLASTIN TIME (BEAKER) (test 55.2 seconds 22.5-36.0 htfi=326) RECOMMENDED COUMADIN/WARFARIN INR THERAPY RANGESSTANDARD DOSE: 2.0 - 3.0 Includes: PROPHYLAXIS forvenous thrombosis, systemic embolization; TREATMENT for venous thrombosis and/or pulmonary embolus.HIGH RISK: Target INR is 2.5-3.5 for patients with mechanical heart valves.COMPREHENSIVE METABOLIC [id number] 06:37:00 Test Item Value Reference Range Comments TOTAL PROTEIN (BEAKER) 5.7 gm/dL 6.0-8.3 (test jlnj=150) ALBUMIN (BEAKER) (test 3.7 g/dL 3.5-5.0 icmm=1681) ALKALINE PHOSPHATASE 70 U/L 40-150 (BEAKER) (test lerc=581) BILIRUBIN TOTAL (BEAKER) 2.6 mg/dL 0.2-1.2 (test fvmz=961) SODIUM (BEAKER) (test 130 meq/L 136-145 ubkr=960) POTASSIUM (BEAKER) (test 5.2 meq/L 3.5-5.1 fqfj=384) CHLORIDE (BEAKER) (test 100 meq/L 98-107 coav=137) CO2 (BEAKER) (test 25 meq/L 22-29 ivja=815) BLOOD UREA NITROGEN 20 mg/dL 7-21 (BEAKER) (test neod=079) CREATININE (BEAKER) (test 1.08 mg/dL 0.57-1.25 xxye=054) GLUCOSE RANDOM (BEAKER) 91 mg/dL 70-105 (test xtkt=123) CALCIUM (BEAKER) (test 9.6 mg/dL 8.4-10.2 xsnm=356) AST (SGOT) (BEAKER) (test 16 U/L 5-34 stva=584) ALT (SGPT) (BEAKER) (test 6 U/L 6-55 oydu=879) EGFR (BEAKER) (test 72 mL/min/1.73 sq m ESTIMATED GFR IS NOT alqr=6295) ACCURATE CREATININE CLEARANCE IN PREDICTING GLOMERULAR FILTRATION RATE. ESTIMATED GFR IS NOT APPLICABLE FOR DIALYSIS PATIENTS. Specimen slightly [id number] 06:01:00 Test Item Value Reference Range Comments RPR SCREEN (BEAKER) (test rgde=137) Nonreactive Nonreactive CRYPTOCOCCAL [id number] 05:59:00 Test Item Value Reference Range Comments CRYPTOCOCCAL ANTIGEN, SERUM (BEAKER) (test Negative Negative, Interference agbm=0696) RAD, MANDIBLE, MIN 4 [id number] 01:37:00Reason for exam:->liver transplant evalShould this be [...] small scattered sclerotic calvarial foci. Signed: Cash Barcenaseport Verified Date/Time: 12/31/2017 01:37:57 Reading Location: [address] Reading Room Electronically signed by: CASH BARCENAS M.D. on 04/2018 01:37 AMRAD, CHEST, 2 [id number] 23:32:00Reason for exam:-> liver transplant evalShould this [...] further evaluation if warranted. Signed: Cash Barcenas [facility] Verified Date/Time: 12/30/2017 23:32:31 Reading Location: [address] Reading Room HEMOGLOBIN [id number] 22:54:00 Test Item Value Reference Range Comments HEMOGLOBIN A1C (BEAKER) (test xmwx=281) 4.1 % 4.3-6.1 HEPATITIS B SURFACE [id number] 16:31:00 Test Item Value Reference Range Comments HEPATITIS B SURFACE ANTIBODY (BEAKER) (test < mIU/mL <8.0 ppfy=751) HEPATITIS B SURFACE [id number] 16:29:00 Test Item Value Reference Range Comments HEPATITIS B SURFACE ANTIGEN (2) (BEAKER) (test Nonreactive Nonreactive nfzi=8761) HEPATITIS B CORE ANTIBODY, [id number] 16:29:00 Test Item Value Reference Range Comments HEPATITIS B CORE IGM ANTIBODY (BEAKER) (test Nonreactive Nonreactive nnbt=017) HEPATITIS A ANTIBODY, [id number] 16:29:00 Test Item Value Reference Range Comments HEPATITIS A IGM ANTIBODY (BEAKER) (test Nonreactive Nonreactive dyfn=999) HEPATITIS B CORE ANTIBODY, [id number] 16:29:00 Test Item Value Reference Range Comments HEPATITIS B CORE TOTAL ANTIBODY (BEAKER) (test Nonreactive Nonreactive ooki=820) [id number] 16:26:00 Test Item Value Reference Range Comments T4 TOTAL (BEAKER) (test xvgs=689) 3.5 ug/dL 4.9-11.7 [id number] 16:26:00 Test Item Value Reference Range Comments T3 TOTAL (BEAKER) (test uaen=129) 42 ng/dL 48-159 [id number] 16:24:00 Test Item Value Reference Range Comments FERRITIN (BEAKER) (test uium=770) 1460 ng/mL 5-275 VITAMIN D, [id number] 16:24:00 Test Item Value Reference Range Comments VITAMIN D 25-OH (BEAKER) (test evzq=3574) 6.9 ng/mL 6.6-49.9 Effective 08/06/2017: Reference Range ChangeNew: 6.6-49.9 ng/mL Previous: 13.0 -47.8 ng/mLRecommended Vitamin D Target Range: 30.0-40.0 ng/[id number] 16: 24:00 Test Item Value Reference Range Comments THYROID STIMULATING HORMONE (BEAKER) (test 1.55 uIU/mL 0.35-4.94 gvmm=802) CARCINOEMBRYONIC ANTIGEN (CEA)2017-12-30 16:24:00 Test Item Value Reference Range Comments CARCINOEMBRYONIC ANTIGEN (BEAKER) (test ogtv=279) 3.0 ng/mL 0.0-5.0 [id number] 16:23:00 Test Item Value Reference Range Comments PROSTATE SPECIFIC ANTIGEN (BEAKER) (test hvnu=239) 0.1 ng/mL 0.0-4.0 HIV-1 ANTIGEN WITH HIV-1/2 [id number] 16:23:00 Test Item Value Reference Range Comments HIV-1 ANTIGEN WITH HIV 1\\T\\2 ANTIBODY (2) Nonreactive Nonreactive (BEAKER) (test essa=2005) HEPATITIS C [id number] 16:23:00 Test Item Value Reference Range Comments HEPATITIS C ANTIBODY (BEAKER) (test smzu=604) Nonreactive Nonreactive LIPID [id number] 16:06:00 Test Item Value Reference Range Comments TRIGLYCERIDES (BEAKER) (test syqb=251) 38 mg/dL CHOLESTEROL (BEAKER) (test rpsz=672) 51 mg/dL HDL CHOLESTEROL (BEAKER) (test eqrh=410) 10 mg/dL LDL CHOLESTEROL CALCULATED (BEAKER) (test gqoc=978) 33 mg/dL Triglyceride Reference Range: Low Risk [...] Value Reference Range Comments IRON (BEAKER) (test gpzt=744) 90 ug/dL 40-160 TOTAL IRON BINDING CAPACITY (BEAKER) (test 85 ug/dL 250-450 ssco=520) IRON % SATURATION (2) (BEAKER) (test vadn=2317) 106 % 20-55 [id number] 16:04:00 Test Item Value Reference Range Comments TRANSFERRIN (BEAKER) (test hsnv=714) 65 mg/dL 174-382 Specimen slightly ictericURIC [id number] 16:02:00 Test Item Value Reference Range Comments URIC ACID (BEAKER) (test agun=938) 8.5 mg/dL 2.6-7.2 Specimen slightly [id number] 15:50:00 Test Item Value Reference Range Comments FIBRINOGEN LEVEL (BEAKER) (test mhfj=000) 161 mg/dl 225-434 BODY FLUID CULTURE + GRAM [id number] 11:45:00 Test Item Value Reference Range Comments CULTURE (BEAKER) (test elds=4037) No growth GRAM STAIN RESULT (BEAKER) (test No WBCs mgtp=7465) GRAM STAIN RESULT (BEAKER) (test No organisms seen lnyz=61021) CBC W/PLT COUNT & AUTO [id number] 08:05:00 Test Item Value Reference Range Comments WHITE BLOOD CELL COUNT (BEAKER) (test rdcz=650) 2.0 K/ L 3.5-10.5 RED BLOOD CELL COUNT (BEAKER) (test nkwh=156) 2.20 M/ L 4.63-6.08 HEMOGLOBIN (BEAKER) (test qbqt=245) 7.1 GM/DL 13.7-17.5 HEMATOCRIT (BEAKER) (test iryf=297) 20.8 % 40.1-51.0 MEAN CORPUSCULAR VOLUME (BEAKER) (test sgsk=638) 94.5 fL 79.0-92.2 MEAN CORPUSCULAR HEMOGLOBIN (BEAKER) (test 32.3 pg 25.7-32.2 ytxt=871) MEAN CORPUSCULAR HEMOGLOBIN CONC (BEAKER) (test 34.1 GM/DL 32.3-36.5 mvqy=656) RED CELL DISTRIBUTION WIDTH (BEAKER) (test 17.0 % 11.6-14.4 cpng=665) PLATELET COUNT (BEAKER) (test cojo=105) 52 K/CU MM 150-450 MEAN PLATELET VOLUME (BEAKER) (test ckbw=726) 10.7 fL 9.4-12.4 NUCLEATED RED BLOOD CELLS (BEAKER) (test 0 /100 WBC 0-0 qmcm=549) NEUTROPHILS RELATIVE PERCENT (BEAKER) (test 55 % onvf=611) LYMPHOCYTES RELATIVE PERCENT (BEAKER) (test 16 % tzqy=171) MONOCYTES RELATIVE PERCENT (BEAKER) (test 20 % ooji=907) EOSINOPHILS RELATIVE PERCENT (BEAKER) (test 8 % cdlw=281) BASOPHILS RELATIVE PERCENT (BEAKER) (test 1 % thjv=863) NEUTROPHILS ABSOLUTE COUNT (BEAKER) (test 1.10 K/ L 1.78-5.38 kqho=192) LYMPHOCYTES ABSOLUTE COUNT (BEAKER) (test 0.32 K/ L 1.32-3.57 lrsv=357) MONOCYTES ABSOLUTE COUNT (BEAKER) (test lphp=109) 0.40 K/ L 0.30-0.82 EOSINOPHILS ABSOLUTE COUNT (BEAKER) (test 0.16 K/ L 0.04-0.54 bmpp=296) BASOPHILS ABSOLUTE COUNT (BEAKER) (test jhiu=923) 0.01 K/ L 0.01-0.08 IMMATURE GRANULOCYTES-RELATIVE PERCENT (BEAKER) 1 % 0-1 (test tnze=6438) (MANUAL DIFFERENTIAL)2017-12-30 08:05:00 Test Item Value Reference Range Comments TOTAL COUNTED (BEAKER) (test pjkj=2998) URINALYSIS W/ [id number] 06:46:00 Test Item Value Reference Range Comments COLOR (BEAKER) (test zrmx=349) Yellow CLARITY (BEAKER) (test qehg=665) Clear SPECIFIC GRAVITY UA (BEAKER) (test fgcx=164) 1.008 1.001-1.035 PH UA (BEAKER) (test ocig=162) 6.0 5.0-8.0 PROTEIN UA (BEAKER) (test iqtf=173) Negative Negative GLUCOSE UA (BEAKER) (test pomk=246) Negative Negative KETONES UA (BEAKER) (test lztk=669) Negative Negative BILIRUBIN UA (BEAKER) (test rdxz=078) Negative Negative BLOOD UA (BEAKER) (test swui=117) Negative Negative NITRITE UA (BEAKER) (test cueq=792) Negative Negative LEUKOCYTE ESTERASE UA (BEAKER) (test amtl=448) Negative Negative UROBILINOGEN UA (BEAKER) (test puzt=082) 0.2 mg/dL 0.2-1.0 RBC UA (BEAKER) (test poij=381) 0 /HPF WBC UA (BEAKER) (test sgje=584) 0 /HPF HYALINE CASTS (BEAKER) (test xovy=546) 5 /LPF SOURCE(BEAKER) (test spso=4198) Urine, Voided SODIUM, RANDOM [id number] 06:35:00 Test Item Value Reference Range Comments SODIUM URINE (BEAKER) (test dntn=443) < meq/L Reference Range: No NormalsPROTEIN, RANDOM [id number] 06:35:00 Test Item Value Reference Range Comments PROTEIN, URINE (BEAKER) (test dukm=0729) < mg/dL 0-14 [id number] 06:21:00 Test Item Value Reference Range Comments MAGNESIUM (BEAKER) (test 1.8 mg/dL 1.6-2.6 Specimen slightly hemolyzed nnrc=708) [id number] 06:21:00 Test Item Value Reference Range Comments PHOSPHORUS (BEAKER) (test 2.9 mg/dL 2.3-4.7 Specimen slightly hemolyzed auxt=948) COMPREHENSIVE METABOLIC [id number] 06:21:00 Test Item Value Reference Range Comments TOTAL PROTEIN (BEAKER) 5.6 gm/dL 6.0-8.3 Specimen slightly (test vdft=983) hemolyzed ALBUMIN (BEAKER) (test 3.5 g/dL 3.5-5.0 Specimen slightly otwq=4008) hemolyzed ALKALINE PHOSPHATASE 75 U/L 40-150 (BEAKER) (test cosd=649) BILIRUBIN TOTAL (BEAKER) 3.0 mg/dL 0.2-1.2 Specimen slightly (test khae=616) hemolyzed SODIUM (BEAKER) (test 127 meq/L 136-145 qiuq=455) POTASSIUM (BEAKER) (test 5.2 meq/L 3.5-5.1 Specimen slightly lcbn=665) hemolyzed CHLORIDE (BEAKER) (test 97 meq/L 98-107 zyav=216) CO2 (BEAKER) (test 24 meq/L 22-29 djkf=034) BLOOD UREA NITROGEN 22 mg/dL 7-21 (BEAKER) (test xqyg=160) CREATININE (BEAKER) (test 1.11 mg/dL 0.57-1.25 Specimen slightly ezsa=774) hemolyzed GLUCOSE RANDOM (BEAKER) 94 mg/dL 70-105 (test jzyc=808) CALCIUM (BEAKER) (test 9.4 mg/dL 8.4-10.2 wnfi=699) AST (SGOT) (BEAKER) (test 22 U/L 5-34 Specimen slightly nkle=333) hemolyzed ALT (SGPT) (BEAKER) (test 7 U/L 6-55 Specimen slightly ujnv=953) hemolyzed EGFR (BEAKER) (test 70 mL/min/1.73 sq m ESTIMATED GFR IS NOT bqub=2341) ACCURATE CREATININE CLEARANCE IN PREDICTING GLOMERULAR FILTRATION RATE. ESTIMATED GFR IS NOT APPLICABLE FOR DIALYSIS PATIENTS. Specimen slightly ictericCREATININE, RANDOM [id number] 06:19:00 Test Item Value Reference Range Comments CREATININE URINE (BEAKER) (test paka=929) 60.6 mg/dL Reference Range: No [id number] 13:43:00 Test Item Value Reference Range Comments ETHANOL (BEAKER) (test fiyq=719) < mg/dL <=10 COMPREHENSIVE METABOLIC [id number] 08:23:00 Test Item Value Reference Range Comments TOTAL PROTEIN (BEAKER) 5.5 gm/dL 6.0-8.3 (test bzmj=291) ALBUMIN (BEAKER) (test 3.3 g/dL 3.5-5.0 ltnr=1249) ALKALINE PHOSPHATASE 85 U/L 40-150 (BEAKER) (test fyga=193) BILIRUBIN TOTAL (BEAKER) 3.8 mg/dL 0.2-1.2 (test utsl=116) SODIUM (BEAKER) (test 125 meq/L 136-145 mzsi=691) POTASSIUM (BEAKER) (test 4.7 meq/L 3.5-5.1 xggo=511) CHLORIDE (BEAKER) (test 96 meq/L 98-107 pbyt=235) CO2 (BEAKER) (test 21 meq/L 22-29 wijr=930) BLOOD UREA NITROGEN 22 mg/dL 7-21 (BEAKER) (test uigd=684) CREATININE (BEAKER) (test 1.26 mg/dL 0.57-1.25 jpda=520) GLUCOSE RANDOM (BEAKER) 95 mg/dL 70-105 (test hvhd=867) CALCIUM (BEAKER) (test 9.1 mg/dL 8.4-10.2 lirr=790) AST (SGOT) (BEAKER) (test 20 U/L 5-34 qcqx=313) ALT (SGPT) (BEAKER) (test 8 U/L 6-55 wjdr=572) EGFR (BEAKER) (test 60 mL/min/1.73 sq m ESTIMATED GFR IS NOT afdn=3374) ACCURATE CREATININE CLEARANCE IN PREDICTING GLOMERULAR FILTRATION RATE. ESTIMATED GFR IS NOT APPLICABLE FOR DIALYSIS PATIENTS. Specimen slightly ictericCBC W/PLT COUNT & AUTO [id number] 07:17 :00 Test Item Value Reference Range Comments WHITE BLOOD CELL COUNT (BEAKER) (test dzby=405) 2.8 K/ L 3.5-10.5 RED BLOOD CELL COUNT (BEAKER) (test wvcs=954) 2.28 M/ L 4.63-6.08 HEMOGLOBIN (BEAKER) (test knth=037) 7.3 GM/DL 13.7-17.5 HEMATOCRIT (BEAKER) (test rwdv=180) 21.4 % 40.1-51.0 MEAN CORPUSCULAR VOLUME (BEAKER) (test vlvr=304) 93.9 fL 79.0-92.2 MEAN CORPUSCULAR HEMOGLOBIN (BEAKER) (test 32.0 pg 25.7-32.2 fhft=041) MEAN CORPUSCULAR HEMOGLOBIN CONC (BEAKER) (test 34.1 GM/DL 32.3-36.5 mnqe=538) RED CELL DISTRIBUTION WIDTH (BEAKER) (test 16.9 % 11.6-14.4 kbnu=679) PLATELET COUNT (BEAKER) (test ruwk=117) 52 K/CU MM 150-450 MEAN PLATELET VOLUME (BEAKER) (test eefm=550) 9.8 fL 9.4-12.4 NUCLEATED RED BLOOD CELLS (BEAKER) (test 0 /100 WBC 0-0 fxzs=096) NEUTROPHILS RELATIVE PERCENT (BEAKER) (test 61 % uuzm=343) LYMPHOCYTES RELATIVE PERCENT (BEAKER) (test 14 % mwet=455) MONOCYTES RELATIVE PERCENT (BEAKER) (test 18 % xcgf=885) EOSINOPHILS RELATIVE PERCENT (BEAKER) (test 7 % kivw=204) BASOPHILS RELATIVE PERCENT (BEAKER) (test 0 % pqcd=070) NEUTROPHILS ABSOLUTE COUNT (BEAKER) (test 1.69 K/ L 1.78-5.38 gyeb=200) LYMPHOCYTES ABSOLUTE COUNT (BEAKER) (test 0.38 K/ L 1.32-3.57 uzur=801) MONOCYTES ABSOLUTE COUNT (BEAKER) (test sdfw=427) 0.51 K/ L 0.30-0.82 EOSINOPHILS ABSOLUTE COUNT (BEAKER) (test 0.18 K/ L 0.04-0.54 fqfo=991) BASOPHILS ABSOLUTE COUNT (BEAKER) (test hwmj=397) 0.01 K/ L 0.01-0.08 IMMATURE GRANULOCYTES-RELATIVE PERCENT (BEAKER) 1 % 0-1 (test htaq=0113) CT, [id number] 22:20:00FINAL REPORT EXAM: CT of the abdomen [...] MDReport Verified Date/Time: 12/28/2017 22:20:52 Reading Location: [address] Transitional Reading Room CBC W/PLT COUNT & AUTO [id number] 18:06:00 Test Item Value Reference Range Comments WHITE BLOOD CELL COUNT (BEAKER) (test jycf=868) 2.9 K/ L 3.5-10.5 RED BLOOD CELL COUNT (BEAKER) (test bwol=997) 2.03 M/ L 4.63-6.08 HEMOGLOBIN (BEAKER) (test fojh=724) 6.5 GM/DL 13.7-17.5 HEMATOCRIT (BEAKER) (test pnao=311) 19.2 % 40.1-51.0 MEAN CORPUSCULAR VOLUME (BEAKER) (test amlw=310) 94.6 fL 79.0-92.2 MEAN CORPUSCULAR HEMOGLOBIN (BEAKER) (test 32.0 pg 25.7-32.2 cehm=492) MEAN CORPUSCULAR HEMOGLOBIN CONC (BEAKER) (test 33.9 GM/DL 32.3-36.5 dxkm=364) RED CELL DISTRIBUTION WIDTH (BEAKER) (test 17.6 % 11.6-14.4 sngl=530) PLATELET COUNT (BEAKER) (test gmiw=560) 46 K/CU MM 150-450 MEAN PLATELET VOLUME (BEAKER) (test xfvn=120) 9.3 fL 9.4-12.4 NUCLEATED RED BLOOD CELLS (BEAKER) (test 0 /100 WBC 0-0 tbqt=809) NEUTROPHILS RELATIVE PERCENT (BEAKER) (test 66 % vxgf=827) LYMPHOCYTES RELATIVE PERCENT (BEAKER) (test 12 % hjwg=986) MONOCYTES RELATIVE PERCENT (BEAKER) (test 15 % evqg=817) EOSINOPHILS RELATIVE PERCENT (BEAKER) (test 6 % fwdq=200) BASOPHILS RELATIVE PERCENT (BEAKER) (test 0 % naka=884) NEUTROPHILS ABSOLUTE COUNT (BEAKER) (test 1.92 K/ L 1.78-5.38 uaeh=210) LYMPHOCYTES ABSOLUTE COUNT (BEAKER) (test 0.36 K/ L 1.32-3.57 zusj=883) MONOCYTES ABSOLUTE COUNT (BEAKER) (test bjsh=067) 0.44 K/ L 0.30-0.82 EOSINOPHILS ABSOLUTE COUNT (BEAKER) (test 0.16 K/ L 0.04-0.54 ixtt=923) BASOPHILS ABSOLUTE COUNT (BEAKER) (test hahj=761) 0.01 K/ L 0.01-0.08 IMMATURE GRANULOCYTES-RELATIVE PERCENT (BEAKER) 1 % 0-1 (test kkkc=4854) CBC W/PLT COUNT & AUTO [id number] 12:30:00 Test Item Value Reference Range Comments WHITE BLOOD CELL COUNT (BEAKER) (test ukqk=902) 3.1 K/ L 3.5-10.5 RED BLOOD CELL COUNT (BEAKER) (test mvwy=437) 2.09 M/ L 4.63-6.08 HEMOGLOBIN (BEAKER) (test ivjw=744) 6.8 GM/DL 13.7-17.5 HEMATOCRIT (BEAKER) (test vysr=175) 19.9 % 40.1-51.0 MEAN CORPUSCULAR VOLUME (BEAKER) (test nllp=219) 95.2 fL 79.0-92.2 MEAN CORPUSCULAR HEMOGLOBIN (BEAKER) (test 32.5 pg 25.7-32.2 kycp=240) MEAN CORPUSCULAR HEMOGLOBIN CONC (BEAKER) (test 34.2 GM/DL 32.3-36.5 ceyf=774) RED CELL DISTRIBUTION WIDTH (BEAKER) (test 17.5 % 11.6-14.4 hjji=759) PLATELET COUNT (BEAKER) (test msoz=707) 65 K/CU MM 150-450 MEAN PLATELET VOLUME (BEAKER) (test twfr=095) 10.6 fL 9.4-12.4 NUCLEATED RED BLOOD CELLS (BEAKER) (test 0 /100 WBC 0-0 tmwo=783) NEUTROPHILS RELATIVE PERCENT (BEAKER) (test 60 % wzeh=067) LYMPHOCYTES RELATIVE PERCENT (BEAKER) (test 14 % pbsc=540) MONOCYTES RELATIVE PERCENT (BEAKER) (test 17 % qtot=675) EOSINOPHILS RELATIVE PERCENT (BEAKER) (test 8 % seii=264) BASOPHILS RELATIVE PERCENT (BEAKER) (test 0 % oolo=238) NEUTROPHILS ABSOLUTE COUNT (BEAKER) (test 1.85 K/ L 1.78-5.38 lfnq=967) LYMPHOCYTES ABSOLUTE COUNT (BEAKER) (test 0.42 K/ L 1.32-3.57 qkqv=083) MONOCYTES ABSOLUTE COUNT (BEAKER) (test cxnb=075) 0.52 K/ L 0.30-0.82 EOSINOPHILS ABSOLUTE COUNT (BEAKER) (test 0.26 K/ L 0.04-0.54 gpia=501) BASOPHILS ABSOLUTE COUNT (BEAKER) (test kphs=307) 0.01 K/ L 0.01-0.08 IMMATURE GRANULOCYTES-RELATIVE PERCENT (BEAKER) 1 % 0-1 (test svio=1457) U/S, [id number] 06:59:00Limit fluid removal to no more than 5 litersReason for exam:->ascites, concern for sbpShould thisbe performed at the bedside?->NoFINAL REPORT Paracentesis dated 2017 Procedure: Ultrasound-guided paracentesis. Preprocedure diagnosis: Ascites Postprocedure diagnosis: Ascites Conscious sedation: None. Radiologist: Lena Lynn M.D. Freight Loading Supervisor: None Anesthesia: 1% Xylocaine mixed with sodium bicarbonate local anesthesia. Technique: After obtaining informed consent, ultrasound-guided paracentesis was performed under usual sterile technique. Using a 5 chilean drainage catheter, puncture was made in the right lower quadrant abdomen. Approximately 5000 cc of serous fluid was removed. Patient tolerated the procedure well without complication. Complication: None Graft/ Implant: None Estimated Blood Loss: NoneImpression: Ultrasound-guided paracentesis. Signed: Lena Lynn MDReport Verified Date/Time: 12/28/2017 06:59 :16 Reading Location: [facility] C013Y CT Body Reading Room ALPHA FETOPROTEIN (AFP), TUMOR [id number] 06:22:00 Test Item Value Reference Range Comments ALPHA-FETOPROTEIN (BEAKER) (test kwcz=9848) 4.1 ng/mL <10.0 COMPREHENSIVE METABOLIC [id number] 06:00:00 Test Item Value Reference Range Comments TOTAL PROTEIN (BEAKER) 5.3 gm/dL 6.0-8.3 (test nbli=474) ALBUMIN (BEAKER) (test 2.7 g/dL 3.5-5.0 mgic=9646) ALKALINE PHOSPHATASE 94 U/L 40-150 (BEAKER) (test cjpv=929) BILIRUBIN TOTAL (BEAKER) 3.7 mg/dL 0.2-1.2 (test hvxs=331) SODIUM (BEAKER) (test 124 meq/L 136-145 hwuh=866) POTASSIUM (BEAKER) (test 4.6 meq/L 3.5-5.1 uajo=820) CHLORIDE (BEAKER) (test 96 meq/L 98-107 labp=180) CO2 (BEAKER) (test 22 meq/L 22-29 pjkl=745) BLOOD UREA NITROGEN 22 mg/dL 7-21 (BEAKER) (test ilxu=955) CREATININE (BEAKER) (test 1.40 mg/dL 0.57-1.25 bzwc=092) GLUCOSE RANDOM (BEAKER) 89 mg/dL 70-105 (test ekpd=873) CALCIUM (BEAKER) (test 8.8 mg/dL 8.4-10.2 yrsf=512) AST (SGOT) (BEAKER) (test 25 U/L 5-34 mwee=895) ALT (SGPT) (BEAKER) (test 10 U/L 6-55 bkax=379) EGFR (BEAKER) (test 53 mL/min/1.73 sq m ESTIMATED GFR IS NOT iimf=3638) ACCURATE CREATININE CLEARANCE IN PREDICTING GLOMERULAR FILTRATION RATE. ESTIMATED GFR IS NOT APPLICABLE FOR DIALYSIS PATIENTS. Specimen slightly ictericCBC W/PLT COUNT & AUTO [id number] 05:50 :00 Test Item Value Reference Range Comments WHITE BLOOD CELL COUNT (BEAKER) (test wnes=989) 3.1 K/ L 3.5-10.5 RED BLOOD CELL COUNT (BEAKER) (test izra=320) 2.00 M/ L 4.63-6.08 HEMOGLOBIN (BEAKER) (test iflz=458) 6.4 GM/DL 13.7-17.5 HEMATOCRIT (BEAKER) (test ruoc=752) 18.9 % 40.1-51.0 MEAN CORPUSCULAR VOLUME (BEAKER) (test fmdj=791) 94.5 fL 79.0-92.2 MEAN CORPUSCULAR HEMOGLOBIN (BEAKER) (test 32.0 pg 25.7-32.2 laip=429) MEAN CORPUSCULAR HEMOGLOBIN CONC (BEAKER) (test 33.9 GM/DL 32.3-36.5 gesb=808) RED CELL DISTRIBUTION WIDTH (BEAKER) (test 17.9 % 11.6-14.4 obvk=105) PLATELET COUNT (BEAKER) (test ceeq=543) 59 K/CU MM 150-450 MEAN PLATELET VOLUME (BEAKER) (test dtms=002) 10.4 fL 9.4-12.4 NUCLEATED RED BLOOD CELLS (BEAKER) (test 0 /100 WBC 0-0 vdng=119) NEUTROPHILS RELATIVE PERCENT (BEAKER) (test 63 % okht=243) LYMPHOCYTES RELATIVE PERCENT (BEAKER) (test 14 % nebt=005) MONOCYTES RELATIVE PERCENT (BEAKER) (test 15 % jyef=970) EOSINOPHILS RELATIVE PERCENT (BEAKER) (test 7 % pncl=745) BASOPHILS RELATIVE PERCENT (BEAKER) (test 0 % uvqx=487) NEUTROPHILS ABSOLUTE COUNT (BEAKER) (test 1.94 K/ L 1.78-5.38 nmfg=081) LYMPHOCYTES ABSOLUTE COUNT (BEAKER) (test 0.44 K/ L 1.32-3.57 whlu=402) MONOCYTES ABSOLUTE COUNT (BEAKER) (test gtbb=590) 0.47 K/ L 0.30-0.82 EOSINOPHILS ABSOLUTE COUNT (BEAKER) (test 0.21 K/ L 0.04-0.54 nsqr=196) BASOPHILS ABSOLUTE COUNT (BEAKER) (test pxlc=695) 0.01 K/ L 0.01-0.08 IMMATURE GRANULOCYTES-RELATIVE PERCENT (BEAKER) 1 % 0-1 (test ggkl=0327) BODY FLUID CELL COUNT WITH [id number] 20:39:00 Test Item Value Reference Range Comments APPEARANCE FLUID (BEAKER) (test nadn=031) Slightly Hazy Clear COLOR FLUID (BEAKER) (test kzvc=290) Yellow Colorless, Straw RBC FLUID (BEAKER) (test sshs=878) 90 /cu mm <=1 ADJUSTED WBC FLUID (BEAKER) (test niga=0166) 47 /cu mm <=5 LINING CELLS (BEAKER) (test cnjk=1524) 3 /cu mm <=1 NEUTROPHILS FLUID (BEAKER) (test ekyn=9756) 2 % LYMPHS FLUID (BEAKER) (test lhue=229) 19 % MONO/MACROPHAGE FLUID (BEAKER) (test 79 % csxu=581) EOSINOPHILS FLUID (BEAKER) (test snnu=738) 0 % BASO FLUID (BEAKER) (test bpbx=634) 0 % CONTAINER BODY FLUID (BEAKER) (test EDTA Tube wfeq=3498) ALBUMIN, BODY [id number] 20:14:00 Test Item Value Reference Range Comments ALBUMIN FLUID (BEAKER) (test lgdy=404) 0.4 gm/dL Reference Range: No Normals Assay performance has not been validated for this type of specimen.BASIC METABOLIC [id number] 10:31:00 Test Item Value Reference Range Comments SODIUM (BEAKER) (test 125 meq/L 136-145 lpil=485) POTASSIUM (BEAKER) (test 4.5 meq/L 3.5-5.1 sdlp=728) CHLORIDE (BEAKER) (test 98 meq/L 98-107 ctbb=370) CO2 (BEAKER) (test 20 meq/L 22-29 kvfv=015) BLOOD UREA NITROGEN 22 mg/dL 7-21 (BEAKER) (test wjdl=461) CREATININE (BEAKER) (test 1.45 mg/dL 0.57-1.25 fgse=478) GLUCOSE RANDOM (BEAKER) 87 mg/dL 70-105 (test dqzk=824) CALCIUM (BEAKER) (test 8.6 mg/dL 8.4-10.2 szxb=821) EGFR (BEAKER) (test 51 mL/min/1.73 sq m ESTIMATED GFR IS NOT htkk=1132) ACCURATE CREATININE CLEARANCE IN PREDICTING GLOMERULAR FILTRATION RATE. ESTIMATED GFR IS NOT APPLICABLE FOR DIALYSIS PATIENTS. Specimen slightly ictericHEPATIC FUNCTION [id number] 10:31:00 Test Item Value Reference Range Comments TOTAL PROTEIN (BEAKER) (test cwgk=277) 5.8 gm/dL 6.0-8.3 ALBUMIN (BEAKER) (test jwcj=8721) 2.4 g/dL 3.5-5.0 BILIRUBIN TOTAL (BEAKER) (test grej=629) 4.1 mg/dL 0.2-1.2 BILIRUBIN DIRECT (BEAKER) (test nols=278) 3.1 mg/dL 0.1-0.5 ALKALINE PHOSPHATASE (BEAKER) (test wufy=219) 126 U/L 40-150 AST (SGOT) (BEAKER) (test npgr=900) 28 U/L 5-34 ALT (SGPT) (BEAKER) (test xpxd=283) 13 U/L 6-55 Specimen slightly ictericCBC W/PLT COUNT & AUTO [id number] 10:09 :00 Test Item Value Reference Range Comments WHITE BLOOD CELL COUNT (BEAKER) (test scmt=461) 5.5 K/ L 3.5-10.5 RED BLOOD CELL COUNT (BEAKER) (test jnfa=552) 2.56 M/ L 4.63-6.08 HEMOGLOBIN (BEAKER) (test kumg=971) 8.1 GM/DL 13.7-17.5 HEMATOCRIT (BEAKER) (test hmfa=883) 24.2 % 40.1-51.0 MEAN CORPUSCULAR VOLUME (BEAKER) (test hoem=353) 94.5 fL 79.0-92.2 MEAN CORPUSCULAR HEMOGLOBIN (BEAKER) (test 31.6 pg 25.7-32.2 cqyi=205) MEAN CORPUSCULAR HEMOGLOBIN CONC (BEAKER) (test 33.5 GM/DL 32.3-36.5 ovup=940) RED CELL DISTRIBUTION WIDTH (BEAKER) (test 18.6 % 11.6-14.4 lrhg=128) PLATELET COUNT (BEAKER) (test jims=141) 86 K/CU MM 150-450 MEAN PLATELET VOLUME (BEAKER) (test miwr=155) 9.7 fL 9.4-12.4 NUCLEATED RED BLOOD CELLS (BEAKER) (test 0 /100 WBC 0-0 anfe=840) NEUTROPHILS RELATIVE PERCENT (BEAKER) (test 65 % aufb=889) LYMPHOCYTES RELATIVE PERCENT (BEAKER) (test 13 % tkfo=176) MONOCYTES RELATIVE PERCENT (BEAKER) (test 14 % sdlk=141) EOSINOPHILS RELATIVE PERCENT (BEAKER) (test 6 % kqfg=424) BASOPHILS RELATIVE PERCENT (BEAKER) (test 0 % fguu=993) NEUTROPHILS ABSOLUTE COUNT (BEAKER) (test 3.59 K/ L 1.78-5.38 vmzz=580) LYMPHOCYTES ABSOLUTE COUNT (BEAKER) (test 0.73 K/ L 1.32-3.57 rwnh=379) MONOCYTES ABSOLUTE COUNT (BEAKER) (test nyom=484) 0.76 K/ L 0.30-0.82 EOSINOPHILS ABSOLUTE COUNT (BEAKER) (test 0.33 K/ L 0.04-0.54 tido=338) BASOPHILS ABSOLUTE COUNT (BEAKER) (test sfej=664) 0.02 K/ L 0.01-0.08 IMMATURE GRANULOCYTES-RELATIVE PERCENT (BEAKER) 1 % 0-1 (test rprv=5446) PROTHROMBIN TIME/[id number] 07:51:00 Test Item Value Reference Range Comments PROTIME (BEAKER) (test yebz=692) 23.8 seconds 11.7-14.7 INR (BEAKER) (test lwgi=193) 2.1 <=5.9 RECOMMENDED COUMADIN/WARFARIN INR THERAPY RANGESSTANDARD DOSE: 2.0 - 3.0 Includes: PROPHYLAXIS forvenous thrombosis, systemic embolization; TREATMENT for venous thrombosis and/or pulmonary embolus.HIGH RISK: Target INR is 2.5-3.5 for patients with mechanical heart valves.BLOOD [id number] 05:02:00 Test Item Value Reference Range Comments CULTURE (BEAKER) (test pbis=2226) No growth in 5 days BLOOD [id number] 05:02:00 Test Item Value Reference Range Comments CULTURE (BEAKER) (test ikty=9382) No growth in 5 days BODY FLUID CULTURE + GRAM [id number] 09:05:00 Test Item Value Reference Range Comments CULTURE (BEAKER) (test vble=4871) No growth GRAM STAIN RESULT (BEAKER) (test No White blood cells seen mdrj=5572) GRAM STAIN RESULT (BEAKER) (test No organisms seen rhdy=17163) RAPID DRUG SCREEN, [id number] 23:13:00 Test Item Value Reference Range Comments BARBITURATE URINE (BEAKER) (test xckq=493) Negative Negative BENZODIAZEPINE SCREEN URINE (BEAKER) (test Negative Negative tfpa=319) COCAINE (METAB.) SCREEN (BEAKER) (test zxxj=3529) Negative Negative METHADONE SCREEN (BEAKER) (test zloz=6452) Negative Negative OPIATE SCREEN URINE (BEAKER) (test iooi=470) Negative Negative CANNABINOID SCREEN URINE (BEAKER) (test waod=187) Negative Negative AMPH/METHAMPH SCREEN (BEAKER) (test axcv=6873) Negative Negative PHENCYCLIDINE SCREEN URINE (BEAKER) (test egim=479) Negative Negative OXYCODONE SCREEN URINE (BEAKER) (test vbal=1041) Negative Negative DRUG CUTOFF CONC.Cocaine 300 ng/mL Cannabinoid 50 ng/mL Benzodiazepine 200 ng/mLBarbiturate 200 ng/ mLPhencyclidine 25 ng/mLOpiate 300 ng/mLMethadone 300 ng/mLAmphetamine/ 1000 ng/mL MethamphetamineOxycodone 300 ng/mLThis assay provides an unconfirmed qualitative test result for the clinical management of patients in emergency situations. Chain of custody not maintained. Some qanr-rlv-rbthblh medications, as well as adulterants, may cause inaccurate results. Clinical correlation should be applied. A more comprehensive drug screen or confirmation of a detected drug may be performed upon request.MR, ABDOMEN, [id number] 13:52:00FINAL REPORT MRI of the abdomen with [...] MDReport Verified Date/Time: 09/05/2017 13:52:35 Reading Location: [address] BodyReading Room CBC W/PLT COUNT & AUTO [id number] 05:46:00 Test Item Value Reference Range Comments WHITE BLOOD CELL COUNT (BEAKER) (test ktgw=335) 4.7 K/ L 3.5-10.5 RED BLOOD CELL COUNT (BEAKER) (test gcwg=218) 2.49 M/ L 4.63-6.08 HEMOGLOBIN (BEAKER) (test wynu=471) 7.9 GM/DL 13.7-17.5 HEMATOCRIT (BEAKER) (test fyac=123) 22.6 % 40.1-51.0 MEAN CORPUSCULAR VOLUME (BEAKER) (test mjdp=261) 90.8 fL 79.0-92.2 MEAN CORPUSCULAR HEMOGLOBIN (BEAKER) (test 31.7 pg 25.7-32.2 kwfk=362) MEAN CORPUSCULAR HEMOGLOBIN CONC (BEAKER) (test 35.0 GM/DL 32.3-36.5 vfga=573) RED CELL DISTRIBUTION WIDTH (BEAKER) (test 18.8 % 11.6-14.4 azuk=000) PLATELET COUNT (BEAKER) (test sfsl=603) 60 K/CU MM 150-450 MEAN PLATELET VOLUME (BEAKER) (test ehod=881) 9.2 fL 9.4-12.4 NUCLEATED RED BLOOD CELLS (BEAKER) (test 0 /100 WBC 0-0 fyql=118) NEUTROPHILS RELATIVE PERCENT (BEAKER) (test 65 % djdc=326) LYMPHOCYTES RELATIVE PERCENT (BEAKER) (test 13 % ypke=802) MONOCYTES RELATIVE PERCENT (BEAKER) (test 15 % mbyy=742) EOSINOPHILS RELATIVE PERCENT (BEAKER) (test 6 % ijks=049) BASOPHILS RELATIVE PERCENT (BEAKER) (test 0 % aodk=010) NEUTROPHILS ABSOLUTE COUNT (BEAKER) (test 3.05 K/ L 1.78-5.38 nqjb=794) LYMPHOCYTES ABSOLUTE COUNT (BEAKER) (test 0.62 K/ L 1.32-3.57 zyhp=922) MONOCYTES ABSOLUTE COUNT (BEAKER) (test hpsu=092) 0.68 K/ L 0.30-0.82 EOSINOPHILS ABSOLUTE COUNT (BEAKER) (test 0.28 K/ L 0.04-0.54 ejco=472) BASOPHILS ABSOLUTE COUNT (BEAKER) (test mogi=393) 0.02 K/ L 0.01-0.08 IMMATURE GRANULOCYTES-RELATIVE PERCENT (BEAKER) 1 % 0-1 (test surv=4269) BASIC METABOLIC [id number] 05:44:00 Test Item Value Reference Range Comments SODIUM (BEAKER) (test 127 meq/L 136-145 kqfd=996) POTASSIUM (BEAKER) (test 4.5 meq/L 3.5-5.1 kyrd=819) CHLORIDE (BEAKER) (test 101 meq/L 98-107 xrsr=796) CO2 (BEAKER) (test 19 meq/L 22-29 vqdl=098) BLOOD UREA NITROGEN 17 mg/dL 7-21 (BEAKER) (test efex=547) CREATININE (BEAKER) (test 0.91 mg/dL 0.57-1.25 bvsu=528) GLUCOSE RANDOM (BEAKER) 107 mg/dL 70-105 (test kcno=587) CALCIUM (BEAKER) (test 9.4 mg/dL 8.4-10.2 eimr=462) EGFR (BEAKER) (test 87 mL/min/1.73 sq m ESTIMATED GFR IS NOT fhis=4607) ACCURATE CREATININE CLEARANCE IN PREDICTING GLOMERULAR FILTRATION RATE. ESTIMATED GFR IS NOT APPLICABLE FOR DIALYSIS PATIENTS. Specimen moderately ictericHEPATIC FUNCTION [id number] 05:44:00 Test Item Value Reference Range Comments TOTAL PROTEIN (BEAKER) (test huuj=506) 5.6 gm/dL 6.0-8.3 ALBUMIN (BEAKER) (test fmbr=4343) 3.3 g/dL 3.5-5.0 BILIRUBIN TOTAL (BEAKER) (test bagw=349) 10.3 mg/dL 0.2-1.2 BILIRUBIN DIRECT (BEAKER) (test dtmz=445) 6.8 mg/dL 0.1-0.5 ALKALINE PHOSPHATASE (BEAKER) (test aflr=454) 103 U/L 40-150 AST (SGOT) (BEAKER) (test awtf=583) 17 U/L 5-34 ALT (SGPT) (BEAKER) (test dwtl=805) 8 U/L 6-55 Specimen moderately ictericPT/[id number] 05:31:00 Test Item Value Reference Range Comments PROTIME (BEAKER) (test tgke=256) 25.6 seconds 11.7-14.7 INR (BEAKER) (test ntcn=722) 2.3 <=5.9 PARTIAL THROMBOPLASTIN TIME (BEAKER) (test 51.6 seconds 22.5-36.0 dpbh=033) RECOMMENDED COUMADIN/WARFARIN INR THERAPY RANGESSTANDARD DOSE: 2.0 - 3.0 Includes: PROPHYLAXIS forvenous thrombosis, systemic embolization; TREATMENT for venous thrombosis and/or pulmonary embolus.HIGH RISK: Target INR is 2.5-3.5 for patients with mechanical heart valves.PROTHROMBIN TIME/[id number] 05:30: 00 Test Item Value Reference Range Comments PROTIME (BEAKER) (test ggfz=251) 25.6 seconds 11.7-14.7 INR (BEAKER) (test nczf=055) 2.3 <=5.9 RECOMMENDED COUMADIN/WARFARIN INR THERAPY RANGESSTANDARD DOSE: 2.0 - 3.0 Includes: PROPHYLAXIS forvenous thrombosis, systemic embolization; TREATMENT for venous thrombosis and/or pulmonary embolus.HIGH RISK: Target INR is 2.5-3.5 for patients with mechanical heart valves.BODY FLUID CELL COUNT WITH [id number] 19:30:00 Test Item Value Reference Range Comments APPEARANCE FLUID (BEAKER) (test gvdw=045) Slightly Hazy Clear COLOR FLUID (BEAKER) (test wrhw=481) Yellow Colorless, Straw RBC FLUID (BEAKER) (test gbgu=809) 100 /cu mm <=1 ADJUSTED WBC FLUID (BEAKER) (test rwzy=1069) 36 /cu mm <=5 LINING CELLS (BEAKER) (test whhv=2065) 4 /cu mm <=1 NEUTROPHILS FLUID (BEAKER) (test dwob=7017) 0 % LYMPHS FLUID (BEAKER) (test ybvl=778) 20 % MONO/MACROPHAGE FLUID (BEAKER) (test 80 % owza=277) EOSINOPHILS FLUID (BEAKER) (test ymdy=308) 0 % BASO FLUID (BEAKER) (test atsb=669) 0 % CONTAINER BODY FLUID (BEAKER) (test EDTA Tube begw=7443) U/S, [id number] 16:21:00Reason for exam:->ascitesShould this be performed at the bedside?->NoFINAL REPORT PROCEDURE: Ultrasound-guided paracentesis. INDICATION: 52-year-old man with ascites. DESCRIPTION: After obtaining informed written consent, ultrasound scan of the abdomen identified ascites in the right lower quadrant. The overlying skin was prepped and draped in the usual, sterile fashion and local 1% lidocaine anesthesia was administered. A 5 Polish catheter was advanced into the peritoneal cavity and 13,200 cc of cloudy yellow fluid was removed. The catheter was removed without immediate complication. Samples were sent for analysis. IMPRESSION:Uncomplicated ultrasound-guided paracentesis with 13,200 cc fluid removed. Signed: Candice Mckeonort Verified Date/Time: 2016 16:21:22 Reading Location: [address] Ultrasound Reading Room [facility] METABOLIC [id number] 11:07:00 Test Item Value Reference Range Comments SODIUM (BEAKER) (test 127 meq/L 136-145 mqal=809) POTASSIUM (BEAKER) (test 4.1 meq/L 3.5-5.1 jzmc=794) CHLORIDE (BEAKER) (test 101 meq/L 98-107 nstu=199) CO2 (BEAKER) (test 23 meq/L 22-29 dvvt=629) BLOOD UREA NITROGEN 17 mg/dL 7-21 (BEAKER) (test bpvd=519) CREATININE (BEAKER) (test 1.06 mg/dL 0.57-1.25 qjdf=949) GLUCOSE RANDOM (BEAKER) 104 mg/dL 70-105 (test kedd=000) CALCIUM (BEAKER) (test 8.9 mg/dL 8.4-10.2 jifd=432) EGFR (BEAKER) (test 73 mL/min/1.73 sq m ESTIMATED GFR IS NOT rzxk=0630) ACCURATE CREATININE CLEARANCE IN PREDICTING GLOMERULAR FILTRATION RATE. ESTIMATED GFR IS NOT APPLICABLE FOR DIALYSIS PATIENTS. Specimen markedly ictericHEPATIC FUNCTION [id number] 11:07:00 Test Item Value Reference Range Comments TOTAL PROTEIN (BEAKER) (test odbe=343) 5.4 gm/dL 6.0-8.3 ALBUMIN (BEAKER) (test xuum=4878) 2.8 g/dL 3.5-5.0 BILIRUBIN TOTAL (BEAKER) (test xpxw=431) 12.7 mg/dL 0.2-1.2 BILIRUBIN DIRECT (BEAKER) (test wgnz=829) 7.8 mg/dL 0.1-0.5 ALKALINE PHOSPHATASE (BEAKER) (test nqxo=201) 90 U/L 40-150 AST (SGOT) (BEAKER) (test mmam=637) 22 U/L 5-34 ALT (SGPT) (BEAKER) (test elau=425) 11 U/L 6-55 Specimen markedly ictericPT/[id number] 11:02:00 Test Item Value Reference Range Comments PROTIME (BEAKER) (test qgog=503) 23.4 seconds 11.7-14.7 INR (BEAKER) (test ugmv=661) 2.1 <=5.9 PARTIAL THROMBOPLASTIN TIME (BEAKER) (test 48.7 seconds 22.5-36.0 glfy=007) RECOMMENDED COUMADIN/WARFARIN INR THERAPY RANGESSTANDARD DOSE: 2.0 - 3.0 Includes: PROPHYLAXIS forvenous thrombosis, systemic embolization; TREATMENT for venous thrombosis and/or pulmonary embolus.HIGH RISK: Target INR is 2.5-3.5 for patients with mechanical heart valves.PROTHROMBIN TIME/[id number] 11:01: 00 Test Item Value Reference Range Comments PROTIME (BEAKER) (test siod=562) 23.4 seconds 11.7-14.7 INR (BEAKER) (test iunq=178) 2.1 <=5.9 RECOMMENDED COUMADIN/WARFARIN INR THERAPY RANGESSTANDARD DOSE: 2.0 - 3.0 Includes: PROPHYLAXIS forvenous thrombosis, systemic embolization; TREATMENT for venous thrombosis and/or pulmonary embolus.HIGH RISK: Target INR is 2.5-3.5 for patients with mechanical heart valves.CBC W/PLT COUNT & AUTO [id number] 10:56:00 Test Item Value Reference Range Comments WHITE BLOOD CELL COUNT (BEAKER) (test twzy=429) 4.4 K/ L 3.5-10.5 RED BLOOD CELL COUNT (BEAKER) (test qpno=201) 2.48 M/ L 4.63-6.08 HEMOGLOBIN (BEAKER) (test zgvk=744) 7.8 GM/DL 13.7-17.5 HEMATOCRIT (BEAKER) (test hyar=752) 22.7 % 40.1-51.0 MEAN CORPUSCULAR VOLUME (BEAKER) (test meec=457) 91.5 fL 79.0-92.2 MEAN CORPUSCULAR HEMOGLOBIN (BEAKER) (test 31.5 pg 25.7-32.2 ssxp=213) MEAN CORPUSCULAR HEMOGLOBIN CONC (BEAKER) (test 34.4 GM/DL 32.3-36.5 zfcz=294) RED CELL DISTRIBUTION WIDTH (BEAKER) (test 18.6 % 11.6-14.4 ptpz=621) PLATELET COUNT (BEAKER) (test gjrm=108) 60 K/CU MM 150-450 MEAN PLATELET VOLUME (BEAKER) (test gcls=770) 8.8 fL 9.4-12.4 NUCLEATED RED BLOOD CELLS (BEAKER) (test 0 /100 WBC 0-0 vesy=466) NEUTROPHILS RELATIVE PERCENT (BEAKER) (test 61 % tajr=897) LYMPHOCYTES RELATIVE PERCENT (BEAKER) (test 9 % dzbw=606) MONOCYTES RELATIVE PERCENT (BEAKER) (test 21 % kfqx=214) EOSINOPHILS RELATIVE PERCENT (BEAKER) (test 8 % yswg=531) BASOPHILS RELATIVE PERCENT (BEAKER) (test 1 % hoto=964) NEUTROPHILS ABSOLUTE COUNT (BEAKER) (test 2.68 K/ L 1.78-5.38 dhzj=606) LYMPHOCYTES ABSOLUTE COUNT (BEAKER) (test 0.38 K/ L 1.32-3.57 moxt=233) MONOCYTES ABSOLUTE COUNT (BEAKER) (test dtkf=373) 0.94 K/ L 0.30-0.82 EOSINOPHILS ABSOLUTE COUNT (BEAKER) (test 0.33 K/ L 0.04-0.54 qzqm=141) BASOPHILS ABSOLUTE COUNT (BEAKER) (test avhn=044) 0.02 K/ L 0.01-0.08 IMMATURE GRANULOCYTES-RELATIVE PERCENT (BEAKER) 1 % 0-1 (test ukud=5450) URINALYSIS W/ [id number] 06:18:00 Test Item Value Reference Range Comments COLOR (BEAKER) (test kohc=485) Dark Yellow CLARITY (BEAKER) (test wnsa=671) Clear SPECIFIC GRAVITY UA (BEAKER) (test nkmw=606) 1.008 1.001-1.035 PH UA (BEAKER) (test idpt=976) 6.0 5.0-8.0 PROTEIN UA (BEAKER) (test wclu=827) Negative Negative GLUCOSE UA (BEAKER) (test uxaz=227) Negative Negative KETONES UA (BEAKER) (test uxmt=547) Negative Negative BILIRUBIN UA (BEAKER) (test yqgv=557) Positive Negative BLOOD UA (BEAKER) (test nwbu=280) Moderate Negative NITRITE UA (BEAKER) (test yvoz=280) Negative Negative LEUKOCYTE ESTERASE UA (BEAKER) (test mqxf=861) Negative Negative UROBILINOGEN UA (BEAKER) (test mefm=135) 0.2 mg/dL 0.2-1.0 RBC UA (BEAKER) (test wwjn=115) 80 /HPF WBC UA (BEAKER) (test qncf=027) 10 /HPF HYALINE CASTS (BEAKER) (test myam=008) 5 /LPF AMORPHOUS CRYSTALS (BEAKER) (test jlws=8974) Rare SOURCE(BEAKER) (test gjpu=3695) CBC W/PLT COUNT & AUTO [id number] 00:00:00 Test Item Value Reference Range Comments WHITE BLOOD CELL COUNT (BEAKER) (test ewoq=236) 3.7 K/ L 3.5-10.5 RED BLOOD CELL COUNT (BEAKER) (test unhs=079) 2.20 M/ L 4.63-6.08 HEMOGLOBIN (BEAKER) (test dbxh=510) 7.0 GM/DL 13.7-17.5 HEMATOCRIT (BEAKER) (test jxan=663) 20.2 % 40.1-51.0 MEAN CORPUSCULAR VOLUME (BEAKER) (test pjcn=857) 91.8 fL 79.0-92.2 MEAN CORPUSCULAR HEMOGLOBIN (BEAKER) (test 31.8 pg 25.7-32.2 jjml=049) MEAN CORPUSCULAR HEMOGLOBIN CONC (BEAKER) (test 34.7 GM/DL 32.3-36.5 asgl=788) RED CELL DISTRIBUTION WIDTH (BEAKER) (test 19.3 % 11.6-14.4 alrj=968) PLATELET COUNT (BEAKER) (test xkgf=187) 63 K/CU MM 150-450 MEAN PLATELET VOLUME (BEAKER) (test atva=241) 9.1 fL 9.4-12.4 NUCLEATED RED BLOOD CELLS (BEAKER) (test 0 /100 WBC 0-0 evsv=676) NEUTROPHILS RELATIVE PERCENT (BEAKER) (test 62 % jycf=634) LYMPHOCYTES RELATIVE PERCENT (BEAKER) (test 11 % ingz=183) MONOCYTES RELATIVE PERCENT (BEAKER) (test 19 % rfqf=445) EOSINOPHILS RELATIVE PERCENT (BEAKER) (test 7 % yrnd=811) BASOPHILS RELATIVE PERCENT (BEAKER) (test 1 % hgnv=151) NEUTROPHILS ABSOLUTE COUNT (BEAKER) (test 2.29 K/ L 1.78-5.38 xqec=808) LYMPHOCYTES ABSOLUTE COUNT (BEAKER) (test 0.39 K/ L 1.32-3.57 bbop=163) MONOCYTES ABSOLUTE COUNT (BEAKER) (test bkxv=025) 0.71 K/ L 0.30-0.82 EOSINOPHILS ABSOLUTE COUNT (BEAKER) (test 0.27 K/ L 0.04-0.54 lyje=832) BASOPHILS ABSOLUTE COUNT (BEAKER) (test lcdm=173) 0.02 K/ L 0.01-0.08 IMMATURE GRANULOCYTES-RELATIVE PERCENT (BEAKER) 1 % 0-1 (test zvzm=7809) PROTHROMBIN [id number] 22:52:00 Test Item Value Reference Range Comments PROTIME (BEAKER) (test ntfh=373) 25.6 seconds 11.7-14.7 INR (BEAKER) (test jokf=960) 2.3 <=5.9 RECOMMENDED COUMADIN/WARFARIN INR THERAPY RANGESSTANDARD DOSE: 2.0 - 3.0 Includes: PROPHYLAXIS forvenous thrombosis, systemic embolization; TREATMENT for venous thrombosis and/or pulmonary embolus.HIGH RISK: Target INR is 2.5-3.5 for patients with mechanical heart valves.[id number] 22:52:00 Test Item Value Reference Range Comments MAGNESIUM (BEAKER) (test kpxi=728) 1.3 mg/dL 1.6-2.6 BASIC METABOLIC [id number] 22:52:00 Test Item Value Reference Range Comments SODIUM (BEAKER) (test 124 meq/L 136-145 xvmg=312) POTASSIUM (BEAKER) (test 4.1 meq/L 3.5-5.1 hegi=249) CHLORIDE (BEAKER) (test 99 meq/L 98-107 tydc=091) CO2 (BEAKER) (test 18 meq/L 22-29 yaax=123) BLOOD UREA NITROGEN 16 mg/dL 7-21 (BEAKER) (test pjju=350) CREATININE (BEAKER) (test 0.97 mg/dL 0.57-1.25 wzef=554) GLUCOSE RANDOM (BEAKER) 99 mg/dL 70-105 (test srbc=006) CALCIUM (BEAKER) (test 8.7 mg/dL 8.4-10.2 ldpb=804) EGFR (BEAKER) (test 81 mL/min/1.73 sq m ESTIMATED GFR IS NOT yrpa=8608) ACCURATE CREATININE CLEARANCE IN PREDICTING GLOMERULAR FILTRATION RATE. ESTIMATED GFR IS NOT APPLICABLE FOR DIALYSIS PATIENTS. Specimen markedly ictericHEPATIC FUNCTION [id number] 22:52:00 Test Item Value Reference Range Comments TOTAL PROTEIN (BEAKER) (test ckzg=554) 5.3 gm/dL 6.0-8.3 ALBUMIN (BEAKER) (test rzwk=6436) 2.8 g/dL 3.5-5.0 BILIRUBIN TOTAL (BEAKER) (test dnwl=291) 12.7 mg/dL 0.2-1.2 BILIRUBIN DIRECT (BEAKER) (test nspm=492) 7.6 mg/dL 0.1-0.5 ALKALINE PHOSPHATASE (BEAKER) (test zhno=504) 93 U/L 40-150 AST (SGOT) (BEAKER) (test hqgc=021) 21 U/L 5-34 ALT (SGPT) (BEAKER) (test cnul=987) 9 U/L 6-55 Specimen markedly ictericALPHA FETOPROTEIN (AFP), TUMOR [id number] 16:39: 00 Test Item Value Reference Range Comments ALPHA-FETOPROTEIN (BEAKER) (test amag=8429) 2.5 ng/mL <10.0 BASIC METABOLIC [id number] 15:53:00 Test Item Value Reference Range Comments SODIUM (BEAKER) (test 126 meq/L 136-145 txxf=543) POTASSIUM (BEAKER) (test 5.1 meq/L 3.5-5.1 hsma=518) CHLORIDE (BEAKER) (test 101 meq/L 98-107 ugqp=802) CO2 (BEAKER) (test 19 meq/L 22-29 qgpc=815) BLOOD UREA NITROGEN 14 mg/dL 7-21 (BEAKER) (test qptb=961) CREATININE (BEAKER) (test 1.01 mg/dL 0.57-1.25 izrs=574) GLUCOSE RANDOM (BEAKER) 104 mg/dL 70-105 (test nbbw=958) CALCIUM (BEAKER) (test 9.0 mg/dL 8.4-10.2 perw=522) EGFR (BEAKER) (test 78 mL/min/1.73 sq m ESTIMATED GFR IS NOT pgqq=4196) ACCURATE CREATININE CLEARANCE IN PREDICTING GLOMERULAR FILTRATION RATE. ESTIMATED GFR IS NOT APPLICABLE FOR DIALYSIS PATIENTS. Specimen moderately ictericHEPATIC FUNCTION [id number] 15:53:00 Test Item Value Reference Range Comments TOTAL PROTEIN (BEAKER) (test hkxh=798) 6.1 gm/dL 6.0-8.3 ALBUMIN (BEAKER) (test ibwq=4143) 2.6 g/dL 3.5-5.0 BILIRUBIN TOTAL (BEAKER) (test jnmd=206) 10.4 mg/dL 0.2-1.2 BILIRUBIN DIRECT (BEAKER) (test ujfk=492) 7.5 mg/dL 0.1-0.5 ALKALINE PHOSPHATASE (BEAKER) (test mdba=459) 124 U/L 40-150 AST (SGOT) (BEAKER) (test dhqv=441) 29 U/L 5-34 ALT (SGPT) (BEAKER) (test zyfq=079) 12 U/L 6-55 Specimen moderately ictericGAMMA GLUTAMYL TRANSFERASE (GGT)2017-07-24 15:53:00 Test Item Value Reference Range Comments GAMMA GLUTAMYL TRANSFERASE (BEAKER) (test uomd=677) 17 U/L 9-64 Specimen moderately ictericPROTHROMBIN [id number] 15:40:00 Test Item Value Reference Range Comments PROTIME (BEAKER) (test wuet=397) 22.6 seconds 11.7-14.7 INR (BEAKER) (test nrys=156) 2.0 <=5.9 RECOMMENDED COUMADIN/WARFARIN INR THERAPY RANGESSTANDARD DOSE: 2.0 - 3.0 Includes: PROPHYLAXIS forvenous thrombosis, systemic embolization; TREATMENT for venous thrombosis and/or pulmonary embolus.HIGH RISK: Target INR is 2.5-3.5 for patients with mechanical heart valves.CBC W/PLT COUNT & AUTO [id number] 15:38:00 Test Item Value Reference Range Comments WHITE BLOOD CELL COUNT (BEAKER) (test popo=581) 7.3 K/ L 3.5-10.5 RED BLOOD CELL COUNT (BEAKER) (test ibqi=000) 2.78 M/ L 4.63-6.08 HEMOGLOBIN (BEAKER) (test fikq=988) 9.1 GM/DL 13.7-17.5 HEMATOCRIT (BEAKER) (test emep=973) 27.3 % 40.1-51.0 MEAN CORPUSCULAR VOLUME (BEAKER) (test dlck=050) 98.2 fL 79.0-92.2 MEAN CORPUSCULAR HEMOGLOBIN (BEAKER) (test 32.7 pg 25.7-32.2 mbwg=315) MEAN CORPUSCULAR HEMOGLOBIN CONC (BEAKER) (test 33.3 GM/DL 32.3-36.5 tyab=835) RED CELL DISTRIBUTION WIDTH (BEAKER) (test 16.4 % 11.6-14.4 acwc=625) PLATELET COUNT (BEAKER) (test vrtf=313) 71 K/CU MM 150-450 MEAN PLATELET VOLUME (BEAKER) (test dhfb=602) 9.1 fL 9.4-12.4 NUCLEATED RED BLOOD CELLS (BEAKER) (test 0 /100 WBC 0-0 yqbn=417) NEUTROPHILS RELATIVE PERCENT (BEAKER) (test 71 % fjzv=239) LYMPHOCYTES RELATIVE PERCENT (BEAKER) (test 8 % eoic=607) MONOCYTES RELATIVE PERCENT (BEAKER) (test 15 % qjtw=485) EOSINOPHILS RELATIVE PERCENT (BEAKER) (test 5 % fbhi=014) BASOPHILS RELATIVE PERCENT (BEAKER) (test 0 % erxc=575) NEUTROPHILS ABSOLUTE COUNT (BEAKER) (test 5.13 K/ L 1.78-5.38 spyq=996) LYMPHOCYTES ABSOLUTE COUNT (BEAKER) (test 0.59 K/ L 1.32-3.57 cdit=268) MONOCYTES ABSOLUTE COUNT (BEAKER) (test zngb=644) 1.06 K/ L 0.30-0.82 EOSINOPHILS ABSOLUTE COUNT (BEAKER) (test 0.33 K/ L 0.04-0.54 lzbn=326) BASOPHILS ABSOLUTE COUNT (BEAKER) (test tjij=334) 0.03 K/ L 0.01-0.08 IMMATURE GRANULOCYTES-RELATIVE PERCENT (BEAKER) 2 % 0-1 (test pgbg=0711) FUNGUS CULTURE + [id number] 07:22:00 Test Item Value Reference Range Comments CULTURE (BEAKER) (test No fungus isolated in 28 days inid=1020) FUNGUS SMEAR (BEAKER) (test No fungi seen vbtw=8077) HISTOPLASMA ANTIGEN, [id number] 08:01:00 Test Item Value Reference Range Comments SCAN RESULT (test nqsb=[id number]) TISSUE [id number] 10:58:00 Test Item Value Reference Range Comments LAB AP CPT CODE (BEAKER) (test rgbx=2240) [address] BLOOD [id number] 16:15:00 Test Item Value Reference Range Comments CULTURE (BEAKER) (test fabg=3978) No growth in 5 days BLOOD [id number] 16:15:00 Test Item Value Reference Range Comments CULTURE (BEAKER) (test jxxu=2713) No growth in 5 days [id number] 06:54:00 Test Item Value Reference Range Comments PHOSPHORUS (BEAKER) (test whpr=077) 3.3 mg/dL 2.3-4.7 [id number] 06:54:00 Test Item Value Reference Range Comments MAGNESIUM (BEAKER) (test drsd=099) 1.2 mg/dL 1.6-2.6 BASIC METABOLIC [id number] 06:54:00 Test Item Value Reference Range Comments SODIUM (BEAKER) (test 133 meq/L 136-145 ltqj=388) POTASSIUM (BEAKER) (test 3.6 meq/L 3.5-5.1 lilk=323) CHLORIDE (BEAKER) (test 108 meq/L 98-107 rhll=454) CO2 (BEAKER) (test 17 meq/L 22-29 bnfx=774) BLOOD UREA NITROGEN 13 mg/dL 7-21 (BEAKER) (test lgal=075) CREATININE (BEAKER) (test 1.16 mg/dL 0.57-1.25 dsbn=041) GLUCOSE RANDOM (BEAKER) 82 mg/dL 70-105 (test wcpt=456) CALCIUM (BEAKER) (test 8.0 mg/dL 8.4-10.2 ynwf=771) EGFR (BEAKER) (test 66 mL/min/1.73 sq m ESTIMATED GFR IS NOT iarh=5470) ACCURATE CREATININE CLEARANCE IN PREDICTING GLOMERULAR FILTRATION RATE. ESTIMATED GFR IS NOT APPLICABLE FOR DIALYSIS PATIENTS. Specimen moderately ictericHEPATIC FUNCTION [id number] 06:54:00 Test Item Value Reference Range Comments TOTAL PROTEIN (BEAKER) (test wkso=515) 5.7 gm/dL 6.0-8.3 ALBUMIN (BEAKER) (test zkvq=8938) 3.1 g/dL 3.5-5.0 BILIRUBIN TOTAL (BEAKER) (test irxl=696) 5.2 mg/dL 0.2-1.2 BILIRUBIN DIRECT (BEAKER) (test lwjx=968) 2.6 mg/dL 0.1-0.5 ALKALINE PHOSPHATASE (BEAKER) (test jrri=915) 55 U/L 40-150 AST (SGOT) (BEAKER) (test dwfc=576) 32 U/L 5-34 ALT (SGPT) (BEAKER) (test ctcs=832) 9 U/L 6-55 Specimen moderately ictericCALCIUM, [id number] 06:30:00 Test Item Value Reference Range Comments CALCIUM IONIZED (BEAKER) (test mubq=757) 1.00 mmol/L 1.12-1.27 PH, BLOOD (BEAKER) (test fzqy=9984) 7.52 CBC W/PLT COUNT & AUTO [id number] 06:17:00 Test Item Value Reference Range Comments WHITE BLOOD CELL COUNT (BEAKER) (test xnsq=280) 4.7 K/ L 4.0-10.0 RED BLOOD CELL COUNT (BEAKER) (test pojd=344) 2.05 M/ L 4.20-5.80 HEMOGLOBIN (BEAKER) (test zglk=128) 7.1 GM/DL 13.0-16.8 HEMATOCRIT (BEAKER) (test ngoh=485) 21.1 % 40.0-50.0 MEAN CORPUSCULAR VOLUME (BEAKER) (test pyhl=414) 103.0 fL 82.0-98.0 MEAN CORPUSCULAR HEMOGLOBIN (BEAKER) (test 34.8 pg 27.0-33.0 hiwu=432) MEAN CORPUSCULAR HEMOGLOBIN CONC (BEAKER) (test 33.8 GM/DL 32.0-36.0 edmo=267) RED CELL DISTRIBUTION WIDTH (BEAKER) (test 13.9 % 10.3-14.2 vgsi=193) PLATELET COUNT (BEAKER) (test kgxg=894) 71 K/CU MM 150-430 MEAN PLATELET VOLUME (BEAKER) (test qxam=285) 6.6 fL 6.5-10.5 NUCLEATED RED BLOOD CELLS (BEAKER) (test 0 /100 WBC 0-0 zall=049) NEUTROPHILS RELATIVE PERCENT (BEAKER) (test 68 % fdce=736) LYMPHOCYTES RELATIVE PERCENT (BEAKER) (test 16 % bqxa=774) MONOCYTES RELATIVE PERCENT (BEAKER) (test 12 % vxqe=349) EOSINOPHILS RELATIVE PERCENT (BEAKER) (test 4 % zeay=846) BASOPHILS RELATIVE PERCENT (BEAKER) (test 1 % xkxb=531) NEUTROPHILS ABSOLUTE COUNT (BEAKER) (test 3.21 K/ L 1.80-8.00 xtgr=543) LYMPHOCYTES ABSOLUTE COUNT (BEAKER) (test 0.75 K/ L 1.48-4.50 fgxe=567) MONOCYTES ABSOLUTE COUNT (BEAKER) (test lqog=967) 0.57 K/ L 0.00-1.30 EOSINOPHILS ABSOLUTE COUNT (BEAKER) (test 0.19 K/ L 0.00-0.50 dhsu=138) BASOPHILS ABSOLUTE COUNT (BEAKER) (test zllw=142) 0.03 K/ L 0.00-0.20 0.00PROTHROMBIN [id number] 05:56:00 Test Item Value Reference Range Comments PROTIME (BEAKER) (test zbwj=419) 26.4 seconds 11.7-14.7 INR (BEAKER) (test rnof=634) 2.4 <=5.9 RECOMMENDED COUMADIN/WARFARIN INR THERAPY RANGESSTANDARD DOSE: 2.0 - 3.0 Includes: PROPHYLAXIS forvenous thrombosis, systemic embolization; TREATMENT for venous thrombosis and/or pulmonary embolus.HIGH RISK: Target INR is 2.5-3.5 for patients with mechanical heart valves.BASIC METABOLIC [id number] 04:44: 00 Test Item Value Reference Range Comments SODIUM (BEAKER) (test 134 meq/L 136-145 ojnr=502) POTASSIUM (BEAKER) (test 3.6 meq/L 3.5-5.1 hjca=654) CHLORIDE (BEAKER) (test 108 meq/L 98-107 hzve=714) CO2 (BEAKER) (test 19 meq/L 22-29 wxre=482) BLOOD UREA NITROGEN 12 mg/dL 7-21 (BEAKER) (test lzju=188) CREATININE (BEAKER) (test 1.32 mg/dL 0.57-1.25 cdbm=250) GLUCOSE RANDOM (BEAKER) 82 mg/dL 70-105 (test rpwj=886) CALCIUM (BEAKER) (test 7.9 mg/dL 8.4-10.2 hjii=215) EGFR (BEAKER) (test 57 mL/min/1.73 sq m ESTIMATED GFR IS NOT eehv=4371) ACCURATE CREATININE CLEARANCE IN PREDICTING GLOMERULAR FILTRATION RATE. ESTIMATED GFR IS NOT APPLICABLE FOR DIALYSIS PATIENTS. Specimen moderately ictericHEPATIC FUNCTION [id number] 04:42:00 Test Item Value Reference Range Comments TOTAL PROTEIN (BEAKER) (test nvxt=681) 5.8 gm/dL 6.0-8.3 ALBUMIN (BEAKER) (test spou=2590) 3.1 g/dL 3.5-5.0 BILIRUBIN TOTAL (BEAKER) (test pjve=374) 5.1 mg/dL 0.2-1.2 BILIRUBIN DIRECT (BEAKER) (test zxgc=268) 2.7 mg/dL 0.1-0.5 ALKALINE PHOSPHATASE (BEAKER) (test elqj=963) 51 U/L 40-150 AST (SGOT) (BEAKER) (test reyh=397) 27 U/L 5-34 ALT (SGPT) (BEAKER) (test arbg=723) 7 U/L 6-55 Specimen moderately ictericCBC W/PLT COUNT & AUTO [id number] 04: 35:00 Test Item Value Reference Range Comments WHITE BLOOD CELL COUNT (BEAKER) (test twun=026) 4.6 K/ L 4.0-10.0 RED BLOOD CELL COUNT (BEAKER) (test krxx=582) 2.06 M/ L 4.20-5.80 HEMOGLOBIN (BEAKER) (test njoe=477) 7.2 GM/DL 13.0-16.8 HEMATOCRIT (BEAKER) (test urqw=144) 21.5 % 40.0-50.0 MEAN CORPUSCULAR VOLUME (BEAKER) (test ppew=455) 104.0 fL 82.0-98.0 MEAN CORPUSCULAR HEMOGLOBIN (BEAKER) (test 35.0 pg 27.0-33.0 hpjm=868) MEAN CORPUSCULAR HEMOGLOBIN CONC (BEAKER) (test 33.6 GM/DL 32.0-36.0 brsl=104) RED CELL DISTRIBUTION WIDTH (BEAKER) (test 13.4 % 10.3-14.2 htci=406) PLATELET COUNT (BEAKER) (test kfeg=845) 76 K/CU MM 150-430 MEAN PLATELET VOLUME (BEAKER) (test womr=651) 6.5 fL 6.5-10.5 NUCLEATED RED BLOOD CELLS (BEAKER) (test 0 /100 WBC 0-0 nung=912) NEUTROPHILS RELATIVE PERCENT (BEAKER) (test 64 % gsfq=981) LYMPHOCYTES RELATIVE PERCENT (BEAKER) (test 16 % tkuo=655) MONOCYTES RELATIVE PERCENT (BEAKER) (test 16 % bgkg=717) EOSINOPHILS RELATIVE PERCENT (BEAKER) (test 4 % putq=536) BASOPHILS RELATIVE PERCENT (BEAKER) (test 1 % dvhh=009) NEUTROPHILS ABSOLUTE COUNT (BEAKER) (test 2.89 K/ L 1.80-8.00 nsgx=777) LYMPHOCYTES ABSOLUTE COUNT (BEAKER) (test 0.72 K/ L 1.48-4.50 izjy=987) MONOCYTES ABSOLUTE COUNT (BEAKER) (test sngp=426) 0.71 K/ L 0.00-1.30 EOSINOPHILS ABSOLUTE COUNT (BEAKER) (test 0.20 K/ L 0.00-0.50 mjli=295) BASOPHILS ABSOLUTE COUNT (BEAKER) (test zuax=123) 0.03 K/ L 0.00-0.20 0.00PROTHROMBIN [id number] 04:33:00 Test Item Value Reference Range Comments PROTIME (BEAKER) (test bqwy=389) 30.2 seconds 11.7-14.7 INR (BEAKER) (test gvte=680) 2.9 <=5.9 RECOMMENDED COUMADIN/WARFARIN INR THERAPY RANGESSTANDARD DOSE: 2.0 - 3.0 Includes: PROPHYLAXIS forvenous thrombosis, systemic embolization; TREATMENT for venous thrombosis and/or pulmonary embolus.HIGH RISK: Target INR is 2.5-3.5 for patients with mechanical heart valves.VANCOMYCIN LEVEL, [id number] 17: 04:00 Test Item Value Reference Range Comments VANCOMYCIN TROUGH (BEAKER) (test eokb=398) 12.2 ug/mL 10.0-20.0 URINE [id number] 14:25:00 Test Item Value Reference Range Comments CULTURE (BEAKER) (test kmcw=7585) No growth TSH/FREE T4 IF [id number] 14:22:00 Test Item Value Reference Range Comments THYROID STIMULATING HORMONE (BEAKER) (test 3.53 uIU/mL 0.35-4.94 kpgj=389) URINE [id number] 11:43:00 Test Item Value Reference Range Comments CULTURE (BEAKER) (test xcze=1031) No growth CBC W/PLT COUNT & AUTO [id number] 07:55:00 Test Item Value Reference Range Comments WHITE BLOOD CELL COUNT (BEAKER) (test atie=225) 4.5 K/ L 4.0-10.0 RED BLOOD CELL COUNT (BEAKER) (test rqxe=266) 2.06 M/ L 4.20-5.80 HEMOGLOBIN (BEAKER) (test kdmh=777) 7.1 GM/DL 13.0-16.8 HEMATOCRIT (BEAKER) (test doud=748) 21.5 % 40.0-50.0 MEAN CORPUSCULAR VOLUME (BEAKER) (test pdpw=570) 104.0 fL 82.0-98.0 MEAN CORPUSCULAR HEMOGLOBIN (BEAKER) (test 34.5 pg 27.0-33.0 wgbs=281) MEAN CORPUSCULAR HEMOGLOBIN CONC (BEAKER) (test 33.1 GM/DL 32.0-36.0 oqdt=058) RED CELL DISTRIBUTION WIDTH (BEAKER) (test 13.4 % 10.3-14.2 mkic=951) PLATELET COUNT (BEAKER) (test mhlh=436) 79 K/CU MM 150-430 MEAN PLATELET VOLUME (BEAKER) (test jwkg=455) 6.8 fL 6.5-10.5 NUCLEATED RED BLOOD CELLS (BEAKER) (test 0 /100 WBC 0-0 nneq=665) NEUTROPHILS RELATIVE PERCENT (BEAKER) (test 64 % pdnp=080) LYMPHOCYTES RELATIVE PERCENT (BEAKER) (test 16 % hjsc=421) MONOCYTES RELATIVE PERCENT (BEAKER) (test 15 % ylut=247) EOSINOPHILS RELATIVE PERCENT (BEAKER) (test 5 % qgcb=091) BASOPHILS RELATIVE PERCENT (BEAKER) (test 0 % cphc=897) NEUTROPHILS ABSOLUTE COUNT (BEAKER) (test 2.88 K/ L 1.80-8.00 dzgu=571) LYMPHOCYTES ABSOLUTE COUNT (BEAKER) (test 0.73 K/ L 1.48-4.50 rlxf=273) MONOCYTES ABSOLUTE COUNT (BEAKER) (test idmj=457) 0.68 K/ L 0.00-1.30 EOSINOPHILS ABSOLUTE COUNT (BEAKER) (test 0.23 K/ L 0.00-0.50 pxul=378) BASOPHILS ABSOLUTE COUNT (BEAKER) (test ztri=812) 0.02 K/ L 0.00-0.20 0.00BASIC METABOLIC [id number] 05:58:00 Test Item Value Reference Range Comments SODIUM (BEAKER) (test 137 meq/L 136-145 pisj=172) POTASSIUM (BEAKER) (test 3.7 meq/L 3.5-5.1 gwvt=584) CHLORIDE (BEAKER) (test 110 meq/L 98-107 hyfk=283) CO2 (BEAKER) (test 19 meq/L 22-29 kpmp=002) BLOOD UREA NITROGEN 12 mg/dL 7-21 (BEAKER) (test ammt=053) CREATININE (BEAKER) (test 1.29 mg/dL 0.57-1.25 asur=062) GLUCOSE RANDOM (BEAKER) 80 mg/dL 70-105 (test qclt=013) CALCIUM (BEAKER) (test 8.1 mg/dL 8.4-10.2 vxjx=620) EGFR (BEAKER) (test 59 mL/min/1.73 sq m ESTIMATED GFR IS NOT iomd=5102) ACCURATE CREATININE CLEARANCE IN PREDICTING GLOMERULAR FILTRATION RATE. ESTIMATED GFR IS NOT APPLICABLE FOR DIALYSIS PATIENTS. Specimen moderately ictericHEPATIC FUNCTION [id number] 05:58:00 Test Item Value Reference Range Comments TOTAL PROTEIN (BEAKER) (test weci=436) 5.9 gm/dL 6.0-8.3 ALBUMIN (BEAKER) (test ccyj=8973) 3.4 g/dL 3.5-5.0 BILIRUBIN TOTAL (BEAKER) (test krhs=648) 5.6 mg/dL 0.2-1.2 BILIRUBIN DIRECT (BEAKER) (test towj=735) 2.6 mg/dL 0.1-0.5 ALKALINE PHOSPHATASE (BEAKER) (test qglh=738) 50 U/L 40-150 AST (SGOT) (BEAKER) (test ufij=832) 30 U/L 5-34 ALT (SGPT) (BEAKER) (test uqbq=797) 9 U/L 6-55 Specimen moderately ictericPROTHROMBIN [id number] 05:31:00 Test Item Value Reference Range Comments PROTIME (BEAKER) (test svtd=166) 29.0 seconds 11.7-14.7 INR (BEAKER) (test oczq=317) 2.7 <=5.9 RECOMMENDED COUMADIN/WARFARIN INR THERAPY RANGESSTANDARD DOSE: 2.0 - 3.0 Includes: PROPHYLAXIS forvenous thrombosis, systemic embolization; TREATMENT for venous thrombosis and/or pulmonary embolus.HIGH RISK: Target INR is 2.5-3.5 for patients with mechanical heart valves.ANAEROBIC [id number] 05:15:00 Test Item Value Reference Range Comments CULTURE (BEAKER) (test pxov=8130) No anaerobes isolated BLOOD [id number] 00:00:00 Test Item Value Reference Range Comments CULTURE (BEAKER) (test artz=4442) No growth in 5 days BLOOD [id number] 00:00:00 Test Item Value Reference Range Comments CULTURE (BEAKER) (test qkke=3568) No growth in 5 days URINALYSIS W/ REFLEX URINE [id number] 08:28:00 Test Item Value Reference Range Comments COLOR (BEAKER) (test arlk=656) Yellow CLARITY (BEAKER) (test cifl=313) Clear SPECIFIC GRAVITY UA (BEAKER) (test nzmt=565) 1.006 1.001-1.035 PH UA (BEAKER) (test cwnm=630) 6.5 5.0-8.0 PROTEIN UA (BEAKER) (test bull=923) Negative Negative GLUCOSE UA (BEAKER) (test chgj=272) Negative Negative KETONES UA (BEAKER) (test cujs=212) Negative Negative BILIRUBIN UA (BEAKER) (test hzsk=457) Negative Negative BLOOD UA (BEAKER) (test jhpv=392) Negative Negative NITRITE UA (BEAKER) (test rhxs=491) Negative Negative LEUKOCYTE ESTERASE UA (BEAKER) (test uzgn=467) Small Negative UROBILINOGEN UA (BEAKER) (test ozqe=069) 0.2 mg/dL 0.2-1.0 RBC UA (BEAKER) (test aarc=093) 1 /HPF WBC UA (BEAKER) (test dgvo=568) 6 /HPF BACTERIA (BEAKER) (test kuni=520) Rare SOURCE(BEAKER) (test fxvh=9221) CBC W/PLT COUNT & AUTO [id number] 07:21:00 Test Item Value Reference Range Comments WHITE BLOOD CELL COUNT (BEAKER) (test idzv=445) 5.9 K/ L 4.0-10.0 RED BLOOD CELL COUNT (BEAKER) (test bjvp=232) 2.12 M/ L 4.20-5.80 HEMOGLOBIN (BEAKER) (test qlpd=668) 7.3 GM/DL 13.0-16.8 HEMATOCRIT (BEAKER) (test fckz=259) 22.2 % 40.0-50.0 MEAN CORPUSCULAR VOLUME (BEAKER) (test qcgb=748) 105.0 fL 82.0-98.0 MEAN CORPUSCULAR HEMOGLOBIN (BEAKER) (test 34.2 pg 27.0-33.0 amyo=646) MEAN CORPUSCULAR HEMOGLOBIN CONC (BEAKER) (test 32.7 GM/DL 32.0-36.0 ranl=296) RED CELL DISTRIBUTION WIDTH (BEAKER) (test 13.1 % 10.3-14.2 gfnc=394) PLATELET COUNT (BEAKER) (test grsr=138) 80 K/CU MM 150-430 MEAN PLATELET VOLUME (BEAKER) (test tmpo=677) 6.5 fL 6.5-10.5 NUCLEATED RED BLOOD CELLS (BEAKER) (test 0 /100 WBC 0-0 baga=589) NEUTROPHILS RELATIVE PERCENT (BEAKER) (test 67 % fbom=778) LYMPHOCYTES RELATIVE PERCENT (BEAKER) (test 14 % nfhg=986) MONOCYTES RELATIVE PERCENT (BEAKER) (test 14 % jfhd=341) EOSINOPHILS RELATIVE PERCENT (BEAKER) (test 4 % ylec=629) BASOPHILS RELATIVE PERCENT (BEAKER) (test 0 % eapi=969) NEUTROPHILS ABSOLUTE COUNT (BEAKER) (test 3.97 K/ L 1.80-8.00 hgsh=656) LYMPHOCYTES ABSOLUTE COUNT (BEAKER) (test 0.85 K/ L 1.48-4.50 vsul=887) MONOCYTES ABSOLUTE COUNT (BEAKER) (test ptif=996) 0.81 K/ L 0.00-1.30 EOSINOPHILS ABSOLUTE COUNT (BEAKER) (test 0.25 K/ L 0.00-0.50 jbvs=474) BASOPHILS ABSOLUTE COUNT (BEAKER) (test zcir=663) 0.03 K/ L 0.00-0.20 [id number] 06:35:00 Test Item Value Reference Range Comments PHOSPHORUS (BEAKER) (test hxzr=007) 3.5 mg/dL 2.3-4.7 [id number] 06:35:00 Test Item Value Reference Range Comments MAGNESIUM (BEAKER) (test jrvy=060) 1.7 mg/dL 1.6-2.6 BASIC METABOLIC [id number] 06:35:00 Test Item Value Reference Range Comments SODIUM (BEAKER) (test 137 meq/L 136-145 smbv=682) POTASSIUM (BEAKER) (test 4.0 meq/L 3.5-5.1 psip=157) CHLORIDE (BEAKER) (test 109 meq/L 98-107 suqo=989) CO2 (BEAKER) (test 20 meq/L 22-29 buqr=929) BLOOD UREA NITROGEN 13 mg/dL 7-21 (BEAKER) (test bnjb=536) CREATININE (BEAKER) (test 1.56 mg/dL 0.57-1.25 xypd=524) GLUCOSE RANDOM (BEAKER) 85 mg/dL 70-105 (test nzpl=339) CALCIUM (BEAKER) (test 8.4 mg/dL 8.4-10.2 gwqt=912) EGFR (BEAKER) (test 47 mL/min/1.73 sq m ESTIMATED GFR IS NOT dlzg=1817) ACCURATE CREATININE CLEARANCE IN PREDICTING GLOMERULAR FILTRATION RATE. ESTIMATED GFR IS NOT APPLICABLE FOR DIALYSIS PATIENTS. Specimen moderately ictericHEPATIC FUNCTION [id number] 06:35:00 Test Item Value Reference Range Comments TOTAL PROTEIN (BEAKER) (test xmie=609) 6.5 gm/dL 6.0-8.3 ALBUMIN (BEAKER) (test jksx=1187) 3.8 g/dL 3.5-5.0 BILIRUBIN TOTAL (BEAKER) (test syuu=634) 6.1 mg/dL 0.2-1.2 BILIRUBIN DIRECT (BEAKER) (test qfpt=001) 2.9 mg/dL 0.1-0.5 ALKALINE PHOSPHATASE (BEAKER) (test ynlx=144) 54 U/L 40-150 AST (SGOT) (BEAKER) (test dgwu=035) 28 U/L 5-34 ALT (SGPT) (BEAKER) (test opmb=209) 7 U/L 6-55 Specimen moderately ictericPROTHROMBIN [id number] 06:06:00 Test Item Value Reference Range Comments PROTIME (BEAKER) (test drop=633) 26.1 seconds 11.7-14.7 INR (BEAKER) (test qbkt=906) 2.4 <=5.9 RECOMMENDED COUMADIN/WARFARIN INR THERAPY RANGESSTANDARD DOSE: 2.0 - 3.0 Includes: PROPHYLAXIS forvenous thrombosis, systemic embolization; TREATMENT for venous thrombosis and/or pulmonary embolus.HIGH RISK: Target INR is 2.5-3.5 for patients with mechanical heart valves.CALCIUM, [id number] 06:06:00 Test Item Value Reference Range Comments CALCIUM IONIZED (BEAKER) (test oclh=880) 1.06 mmol/L 1.12-1.27 PH, BLOOD (BEAKER) (test azfu=7291) 7.46 SURGICALLY OBTAINED CULTURE + GRAM [id number] 23:51:00 Test Item Value Reference Range Comments CULTURE (BEAKER) (test fngb=4574) No growth GRAM STAIN RESULT (BEAKER) (test 1+ WBCs zode=2523) GRAM STAIN RESULT (BEAKER) (test No organisms seen xvow=44241) BODY FLUID CULTURE + GRAM [id number] 23:42:00 Test Item Value Reference Range Comments CULTURE (BEAKER) (test szep=9464) No growth GRAM STAIN RESULT (BEAKER) (test 1+ WBCs mdlf=2985) GRAM STAIN RESULT (BEAKER) (test No organisms seen bkuv=17578) BODY FLUID CELL COUNT WITH [id number] 19:59:00 Test Item Value Reference Range Comments APPEARANCE FLUID (BEAKER) (test ckul=392) Hazy Clear COLOR FLUID (BEAKER) (test pooi=445) Yellow Colorless, Straw RBC FLUID (BEAKER) (test krkl=149) 2435 /cu mm <=1 ADJUSTED WBC FLUID (BEAKER) (test nzrs=6577) 441 /cu mm <=5 LINING CELLS (BEAKER) (test casp=6949) 9 /cu mm <=1 NEUTROPHILS FLUID (BEAKER) (test xfim=6432) 16 % LYMPHS FLUID (BEAKER) (test qazg=202) 10 % MONO/MACROPHAGE FLUID (BEAKER) (test trcs=633) 74 % EOSINOPHILS FLUID (BEAKER) (test tgxr=355) 0 % BASO FLUID (BEAKER) (test zhew=294) 0 % CONTAINER BODY FLUID (BEAKER) (test enog=5487) EDTA Tube [id number] 11:01:00 Test Item Value Reference Range Comments PROCALCITONIN (BEAKER) (test dhop=7954) 0.25 ng/mL <0.05 SEPSIS RISK (ng/mL)Low: 0.05-0.50Intermediate: 0.51-2.00High: & gt;=2.01CBC W/PLT COUNT & AUTO [id number] 08:40:00 Test Item Value Reference Range Comments WHITE BLOOD CELL COUNT (BEAKER) (test lwmz=863) 6.3 K/ L 4.0-10.0 RED BLOOD CELL COUNT (BEAKER) (test rxzz=148) 2.07 M/ L 4.20-5.80 HEMOGLOBIN (BEAKER) (test dqel=448) 7.1 GM/DL 13.0-16.8 HEMATOCRIT (BEAKER) (test twaj=061) 21.9 % 40.0-50.0 MEAN CORPUSCULAR VOLUME (BEAKER) (test htcq=318) 106.0 fL 82.0-98.0 MEAN CORPUSCULAR HEMOGLOBIN (BEAKER) (test 34.1 pg 27.0-33.0 uiqd=313) MEAN CORPUSCULAR HEMOGLOBIN CONC (BEAKER) (test 32.2 GM/DL 32.0-36.0 rbak=236) RED CELL DISTRIBUTION WIDTH (BEAKER) (test 13.1 % 10.3-14.2 ktvm=588) PLATELET COUNT (BEAKER) (test nynw=041) 78 K/CU MM 150-430 MEAN PLATELET VOLUME (BEAKER) (test inkq=617) 6.6 fL 6.5-10.5 NUCLEATED RED BLOOD CELLS (BEAKER) (test 0 /100 WBC 0-0 trtc=110) NEUTROPHILS RELATIVE PERCENT (BEAKER) (test 73 % qgzz=927) LYMPHOCYTES RELATIVE PERCENT (BEAKER) (test 10 % iwri=380) MONOCYTES RELATIVE PERCENT (BEAKER) (test 13 % jhiu=126) EOSINOPHILS RELATIVE PERCENT (BEAKER) (test 4 % wetm=404) BASOPHILS RELATIVE PERCENT (BEAKER) (test 0 % ftnb=290) NEUTROPHILS ABSOLUTE COUNT (BEAKER) (test 4.60 K/ L 1.80-8.00 pcoe=384) LYMPHOCYTES ABSOLUTE COUNT (BEAKER) (test 0.64 K/ L 1.48-4.50 wavz=981) MONOCYTES ABSOLUTE COUNT (BEAKER) (test isjy=887) 0.81 K/ L 0.00-1.30 EOSINOPHILS ABSOLUTE COUNT (BEAKER) (test 0.23 K/ L 0.00-0.50 wamh=464) BASOPHILS ABSOLUTE COUNT (BEAKER) (test wevg=357) 0.01 K/ L 0.00-0.20 [id number] 06:50:00 Test Item Value Reference Range Comments PHOSPHORUS (BEAKER) (test hdli=905) 3.0 mg/dL 2.3-4.7 [id number] 06:50:00 Test Item Value Reference Range Comments MAGNESIUM (BEAKER) (test mjqu=565) 1.9 mg/dL 1.6-2.6 BASIC METABOLIC [id number] 06:50:00 Test Item Value Reference Range Comments SODIUM (BEAKER) (test 135 meq/L 136-145 leni=861) POTASSIUM (BEAKER) (test 4.2 meq/L 3.5-5.1 lzqv=337) CHLORIDE (BEAKER) (test 106 meq/L 98-107 wztf=624) CO2 (BEAKER) (test 21 meq/L 22-29 bkzl=207) BLOOD UREA NITROGEN 19 mg/dL 7-21 (BEAKER) (test uktc=530) CREATININE (BEAKER) (test 1.62 mg/dL 0.57-1.25 kszw=429) GLUCOSE RANDOM (BEAKER) 98 mg/dL 70-105 (test ooho=534) CALCIUM (BEAKER) (test 8.6 mg/dL 8.4-10.2 wqrb=168) EGFR (BEAKER) (test 45 mL/min/1.73 sq m ESTIMATED GFR IS NOT ured=6050) ACCURATE CREATININE CLEARANCE IN PREDICTING GLOMERULAR FILTRATION RATE. ESTIMATED GFR IS NOT APPLICABLE FOR DIALYSIS PATIENTS. Specimen moderately ictericHEPATIC FUNCTION [id number] 06:50:00 Test Item Value Reference Range Comments TOTAL PROTEIN (BEAKER) (test yrfj=252) 6.3 gm/dL 6.0-8.3 ALBUMIN (BEAKER) (test gipe=0546) 3.7 g/dL 3.5-5.0 BILIRUBIN TOTAL (BEAKER) (test cvun=379) 6.2 mg/dL 0.2-1.2 BILIRUBIN DIRECT (BEAKER) (test vekh=476) 2.8 mg/dL 0.1-0.5 ALKALINE PHOSPHATASE (BEAKER) (test rhvm=640) 54 U/L 40-150 AST (SGOT) (BEAKER) (test zvvm=403) 29 U/L 5-34 ALT (SGPT) (BEAKER) (test upkt=269) 8 U/L 6-55 Specimen moderately ictericCALCIUM, [id number] 06:48:00 Test Item Value Reference Range Comments CALCIUM IONIZED (BEAKER) (test awze=051) 1.12 mmol/L 1.12-1.27 PH, BLOOD (BEAKER) (test dnxa=1260) 7.33 PROTHROMBIN [id number] 06:24:00 Test Item Value Reference Range Comments PROTIME (BEAKER) (test bedt=045) 25.4 seconds 11.7-14.7 INR (BEAKER) (test lakj=987) 2.3 <=5.9 RECOMMENDED COUMADIN/WARFARIN INR THERAPY RANGESSTANDARD DOSE: 2.0 - 3.0 Includes: PROPHYLAXIS forvenous thrombosis, systemic embolization; TREATMENT for venous thrombosis and/or pulmonary embolus.HIGH RISK: Target INR is 2.5-3.5 for patients with mechanical heart valves.[id number] 11:17:00 Test Item Value Reference Range Comments FIBRINOGEN LEVEL (BEAKER) (test iugp=118) 115 mg/dl 225-434 CALCIUM, [id number] 06:04:00 Test Item Value Reference Range Comments CALCIUM IONIZED (BEAKER) (test uqle=593) 1.08 mmol/L 1.12-1.27 PH, BLOOD (BEAKER) (test wikp=1018) 7.41 CBC W/PLT COUNT & AUTO [id number] 05:28:00 Test Item Value Reference Range Comments WHITE BLOOD CELL COUNT (BEAKER) (test elpv=684) 5.6 K/ L 4.0-10.0 RED BLOOD CELL COUNT (BEAKER) (test fxqp=152) 2.00 M/ L 4.20-5.80 HEMOGLOBIN (BEAKER) (test ozyi=216) 7.2 GM/DL 13.0-16.8 HEMATOCRIT (BEAKER) (test ggiz=614) 21.2 % 40.0-50.0 MEAN CORPUSCULAR VOLUME (BEAKER) (test fwiw=147) 106.0 fL 82.0-98.0 MEAN CORPUSCULAR HEMOGLOBIN (BEAKER) (test 36.0 pg 27.0-33.0 spte=637) MEAN CORPUSCULAR HEMOGLOBIN CONC (BEAKER) (test 34.0 GM/DL 32.0-36.0 zhgy=306) RED CELL DISTRIBUTION WIDTH (BEAKER) (test 13.9 % 10.3-14.2 lilg=412) PLATELET COUNT (BEAKER) (test oths=677) 74 K/CU MM 150-430 MEAN PLATELET VOLUME (BEAKER) (test hnym=284) 6.6 fL 6.5-10.5 NUCLEATED RED BLOOD CELLS (BEAKER) (test 0 /100 WBC 0-0 xbir=092) NEUTROPHILS RELATIVE PERCENT (BEAKER) (test 66 % mxmy=586) LYMPHOCYTES RELATIVE PERCENT (BEAKER) (test 14 % vyfq=962) MONOCYTES RELATIVE PERCENT (BEAKER) (test 13 % xkgm=972) EOSINOPHILS RELATIVE PERCENT (BEAKER) (test 7 % tvfc=048) BASOPHILS RELATIVE PERCENT (BEAKER) (test 0 % wgja=332) NEUTROPHILS ABSOLUTE COUNT (BEAKER) (test 3.67 K/ L 1.80-8.00 htmw=717) LYMPHOCYTES ABSOLUTE COUNT (BEAKER) (test 0.80 K/ L 1.48-4.50 bphn=913) MONOCYTES ABSOLUTE COUNT (BEAKER) (test mbiu=677) 0.69 K/ L 0.00-1.30 EOSINOPHILS ABSOLUTE COUNT (BEAKER) (test 0.38 K/ L 0.00-0.50 dhto=573) BASOPHILS ABSOLUTE COUNT (BEAKER) (test kqgh=003) 0.02 K/ L 0.00-0.20 0.00PROTHROMBIN [id number] 05:11:00 Test Item Value Reference Range Comments PROTIME (BEAKER) (test vnya=720) 25.9 seconds 11.7-14.7 INR (BEAKER) (test jdyf=644) 2.4 <=5.9 RECOMMENDED COUMADIN/WARFARIN INR THERAPY RANGESSTANDARD DOSE: 2.0 - 3.0 Includes: PROPHYLAXIS forvenous thrombosis, systemic embolization; TREATMENT for venous thrombosis and/or pulmonary embolus.HIGH RISK: Target INR is 2.5-3.5 for patients with mechanical heart valves.[id number] 05:03:00 Test Item Value Reference Range Comments PHOSPHORUS (BEAKER) (test yoej=583) 3.5 mg/dL 2.3-4.7 [id number] 05:03:00 Test Item Value Reference Range Comments MAGNESIUM (BEAKER) (test bxoa=390) 1.7 mg/dL 1.6-2.6 BASIC METABOLIC [id number] 05:03:00 Test Item Value Reference Range Comments SODIUM (BEAKER) (test 135 meq/L 136-145 ntnq=912) POTASSIUM (BEAKER) (test 4.0 meq/L 3.5-5.1 ytvi=344) CHLORIDE (BEAKER) (test 107 meq/L 98-107 zmzy=118) CO2 (BEAKER) (test 20 meq/L 22-29 tyjp=122) BLOOD UREA NITROGEN 22 mg/dL 7-21 (BEAKER) (test jqmr=456) CREATININE (BEAKER) (test 1.77 mg/dL 0.57-1.25 gwfx=244) GLUCOSE RANDOM (BEAKER) 83 mg/dL 70-105 (test rbfe=894) CALCIUM (BEAKER) (test 8.3 mg/dL 8.4-10.2 rdou=681) EGFR (BEAKER) (test 41 mL/min/1.73 sq m ESTIMATED GFR IS NOT alfd=5187) ACCURATE CREATININE CLEARANCE IN PREDICTING GLOMERULAR FILTRATION RATE. ESTIMATED GFR IS NOT APPLICABLE FOR DIALYSIS PATIENTS. Specimen moderately ictericHEPATIC FUNCTION [id number] 05:03:00 Test Item Value Reference Range Comments TOTAL PROTEIN (BEAKER) (test bayw=357) 6.2 gm/dL 6.0-8.3 ALBUMIN (BEAKER) (test axne=3234) 3.7 g/dL 3.5-5.0 BILIRUBIN TOTAL (BEAKER) (test yrzt=011) 6.0 mg/dL 0.2-1.2 BILIRUBIN DIRECT (BEAKER) (test zrdm=029) 2.6 mg/dL 0.1-0.5 ALKALINE PHOSPHATASE (BEAKER) (test ujuh=656) 48 U/L 40-150 AST (SGOT) (BEAKER) (test palu=479) 26 U/L 5-34 ALT (SGPT) (BEAKER) (test cnys=462) 8 U/L 6-55 Specimen moderately ictericURINE [id number] 14:42:00 Test Item Value Reference Range Comments CULTURE (BEAKER) (test wpui=4154) No growth ANTI-NUCLEAR ANTIBODY (CHERYL)[id number] 13:32:00 Test Item Value Reference Range Comments ANTI-NUCLEAR ANTIBODY (CHERYL) (BEAKER) (test Negative Negative bref=432) PLATELET [id number] 06:30:00 Test Item Value Reference Range Comments PLATELET COUNT (BEAKER) (test oyhu=867) 104 K/CU MM 150-430 [id number] 06:22:00 Test Item Value Reference Range Comments FIBRINOGEN LEVEL (BEAKER) (test ausj=576) 106 mg/dl 225-434 [id number] 06:16:00 Test Item Value Reference Range Comments PARTIAL THROMBOPLASTIN TIME (BEAKER) (test 48.1 seconds 22.5-36.0 ewxv=282) PROTHROMBIN [id number] 06:15:00 Test Item Value Reference Range Comments PROTIME (BEAKER) (test nhyn=305) 23.5 seconds 11.7-14.7 INR (BEAKER) (test zeah=867) 2.1 <=5.9 RECOMMENDED COUMADIN/WARFARIN INR THERAPY RANGESSTANDARD DOSE: 2.0 - 3.0 Includes: PROPHYLAXIS forvenous thrombosis, systemic embolization; TREATMENT for venous thrombosis and/or pulmonary embolus.HIGH RISK: Target INR is 2.5-3.5 for patients with mechanical heart valves.[id number] 06:12:00 Test Item Value Reference Range Comments MAGNESIUM (BEAKER) (test 2.0 mg/dL 1.6-2.6 Specimen slightly hemolyzed zhxg=546) [id number] 06:12:00 Test Item Value Reference Range Comments PHOSPHORUS (BEAKER) (test 5.0 mg/dL 2.3-4.7 Specimen slightly hemolyzed xwcp=423) BASIC METABOLIC [id number] 06:12:00 Test Item Value Reference Range Comments SODIUM (BEAKER) (test 135 meq/L 136-145 gzwe=684) POTASSIUM (BEAKER) (test 4.7 meq/L 3.5-5.1 Specimen slightly nrbc=555) hemolyzed CHLORIDE (BEAKER) (test 107 meq/L 98-107 fxju=599) CO2 (BEAKER) (test 20 meq/L 22-29 nowa=190) BLOOD UREA NITROGEN 18 mg/dL 7-21 (BEAKER) (test tbjp=732) CREATININE (BEAKER) (test 1.74 mg/dL 0.57-1.25 Specimen slightly ggsj=739) hemolyzed GLUCOSE RANDOM (BEAKER) 76 mg/dL 70-105 (test ghjs=203) CALCIUM (BEAKER) (test 8.1 mg/dL 8.4-10.2 ahrk=538) EGFR (BEAKER) (test 42 mL/min/1.73 sq m ESTIMATED GFR IS NOT jthw=5514) ACCURATE CREATININE CLEARANCE IN PREDICTING GLOMERULAR FILTRATION RATE. ESTIMATED GFR IS NOT APPLICABLE FOR DIALYSIS PATIENTS. Specimen moderately ictericHEPATIC FUNCTION [id number] 06:12:00 Test Item Value Reference Range Comments TOTAL PROTEIN (BEAKER) (test 6.6 gm/dL 6.0-8.3 Specimen slightly hemolyzed ukud=721) ALBUMIN (BEAKER) (test 3.7 g/dL 3.5-5.0 Specimen slightly hemolyzed tykr=4678) BILIRUBIN TOTAL (BEAKER) (test 5.7 mg/dL 0.2-1.2 Specimen slightly hemolyzed qnkp=387) BILIRUBIN DIRECT (BEAKER) (test 2.7 mg/dL 0.1-0.5 Specimen slightly hemolyzed qbli=996) ALKALINE PHOSPHATASE (BEAKER) 56 U/L 40-150 (test wlrn=811) AST (SGOT) (BEAKER) (test 29 U/L 5-34 Specimen slightly hemolyzed vzyz=427) ALT (SGPT) (BEAKER) (test 7 U/L 6-55 Specimen slightly hemolyzed ypuf=961) Specimen moderately ictericLACTIC ACID, VENOUS, WHOLE [id number] 06:04:00 Test Item Value Reference Range Comments LACTATE BLOOD VENOUS (2) (BEAKER) (test 1.0 mmol/L 0.5-2.2 ozil=9380) Effective 02/28/2016: Units/Reference Range ChangeNew: 0.5-2.2 mmol/L Previous: 5 -20 mg/dLSpecimen moderately ictericCALCIUM, [id number] 05:56:00 Test Item Value Reference Range Comments CALCIUM IONIZED (BEAKER) (test flxd=649) 1.00 mmol/L 1.12-1.27 PH, BLOOD (BEAKER) (test wrlv=3987) 7.34 [id number] 21:34:00 Test Item Value Reference Range Comments FIBRINOGEN LEVEL (BEAKER) (test orlg=014) 105 mg/dl 225-434 PLATELET [id number] 20:52:00 Test Item Value Reference Range Comments PLATELET COUNT (BEAKER) (test uomj=642) 77 K/CU MM 150-430 [id number] 20:51:00 Test Item Value Reference Range Comments PROTIME (BEAKER) (test yxzj=974) 21.1 seconds 11.7-14.7 INR (BEAKER) (test scru=879) 1.8 <=5.9 PARTIAL THROMBOPLASTIN TIME (BEAKER) (test 47.3 seconds 22.5-36.0 cpqo=262) RECOMMENDED COUMADIN/WARFARIN INR THERAPY RANGESSTANDARD DOSE: 2.0 - 3.0 Includes: PROPHYLAXIS forvenous thrombosis, systemic embolization; TREATMENT for venous thrombosis and/or pulmonary embolus.HIGH RISK: Target INR is 2.5-3.5 for patients with mechanical heart valves.[id number] 20:51:00 Test Item Value Reference Range Comments PARTIAL THROMBOPLASTIN TIME (BEAKER) (test 47.3 seconds 22.5-36.0 lgmk=417) PROTHROMBIN [id number] 20:50:00 Test Item Value Reference Range Comments PROTIME (BEAKER) (test iudx=334) 21.1 seconds 11.7-14.7 INR (BEAKER) (test pzsu=977) 1.8 <=5.9 RECOMMENDED COUMADIN/WARFARIN INR THERAPY RANGESSTANDARD DOSE: 2.0 - 3.0 Includes: PROPHYLAXIS forvenous thrombosis, systemic embolization; TREATMENT for venous thrombosis and/or pulmonary embolus.HIGH RISK: Target INR is 2.5-3.5 for patients with mechanical heart valves.[id number] 19:30:00 Test Item Value Reference Range Comments PARTIAL THROMBOPLASTIN TIME (BEAKER) (test 45.1 seconds 22.5-36.0 kiyb=722) PROTHROMBIN [id number] 19:29:00 Test Item Value Reference Range Comments PROTIME (BEAKER) (test nuww=756) 28.2 seconds 11.7-14.7 INR (BEAKER) (test mazj=400) 2.6 <=5.9 RECOMMENDED COUMADIN/WARFARIN INR THERAPY RANGESSTANDARD DOSE: 2.0 - 3.0 Includes: PROPHYLAXIS forvenous thrombosis, systemic embolization; TREATMENT for venous thrombosis and/or pulmonary embolus.HIGH RISK: Target INR is 2.5-3.5 for patients with mechanical heart valves.BODY FLUID CELL COUNT WITH [id number] 18:53:00 Test Item Value Reference Range Comments APPEARANCE FLUID (BEAKER) (test sujf=056) Hazy Clear COLOR FLUID (BEAKER) (test cszu=987) Yellow Colorless, Straw RBC FLUID (BEAKER) (test glmg=724) 900 /cu mm <=1 ADJUSTED WBC FLUID (BEAKER) (test iwvx=6707) 306 /cu mm <=5 LINING CELLS (BEAKER) (test xuzi=3658) 64 /cu mm <=1 NEUTROPHILS FLUID (BEAKER) (test fdfu=1944) 4 % LYMPHS FLUID (BEAKER) (test piyj=649) 18 % MONO/MACROPHAGE FLUID (BEAKER) (test ogyy=439) 78 % EOSINOPHILS FLUID (BEAKER) (test aexl=560) 0 % BASO FLUID (BEAKER) (test rist=805) 0 % CONTAINER BODY FLUID (BEAKER) (test zezf=9666) EDTA Tube [id number] 16:56:00 Test Item Value Reference Range Comments AMYLASE (BEAKER) (test qbvu=661) 37 U/L 25-125 Specimen moderately ictericCOMPREHENSIVE METABOLIC [id number] 16:56:00 Test Item Value Reference Range Comments TOTAL PROTEIN (BEAKER) 6.1 gm/dL 6.0-8.3 (test vzis=096) ALBUMIN (BEAKER) (test 3.2 g/dL 3.5-5.0 wpxj=2036) ALKALINE PHOSPHATASE 67 U/L 40-150 (BEAKER) (test hqdd=251) BILIRUBIN TOTAL (BEAKER) 5.7 mg/dL 0.2-1.2 (test iqwl=414) SODIUM (BEAKER) (test 134 meq/L 136-145 fgwh=281) POTASSIUM (BEAKER) (test 3.8 meq/L 3.5-5.1 msvr=380) CHLORIDE (BEAKER) (test 106 meq/L 98-107 ksei=774) CO2 (BEAKER) (test 19 meq/L 22-29 dpax=968) BLOOD UREA NITROGEN 18 mg/dL 7-21 (BEAKER) (test hgto=525) CREATININE (BEAKER) (test 1.52 mg/dL 0.57-1.25 zoji=626) GLUCOSE RANDOM (BEAKER) 112 mg/dL 70-105 (test vpjd=394) CALCIUM (BEAKER) (test 8.3 mg/dL 8.4-10.2 skjt=341) AST (SGOT) (BEAKER) (test 28 U/L 5-34 jhjx=663) ALT (SGPT) (BEAKER) (test 10 U/L 6-55 vvtf=549) EGFR (BEAKER) (test 49 mL/min/1.73 sq m ESTIMATED GFR IS NOT alft=3148) ACCURATE CREATININE CLEARANCE IN PREDICTING GLOMERULAR FILTRATION RATE. ESTIMATED GFR IS NOT APPLICABLE FOR DIALYSIS PATIENTS. Specimen moderately [id number] 16:56:00 Test Item Value Reference Range Comments LIPASE (BEAKER) (test tdof=053) 52 U/L 8-78 Specimen moderately ictericCBC W/PLT COUNT & AUTO [id number] 16: 27:00 Test Item Value Reference Range Comments WHITE BLOOD CELL COUNT (BEAKER) (test thah=145) 3.7 K/ L 4.0-10.0 RED BLOOD CELL COUNT (BEAKER) (test uoxf=362) 2.16 M/ L 4.20-5.80 HEMOGLOBIN (BEAKER) (test vhpq=065) 7.8 GM/DL 13.0-16.8 HEMATOCRIT (BEAKER) (test nksw=406) 23.1 % 40.0-50.0 MEAN CORPUSCULAR VOLUME (BEAKER) (test lyhp=071) 107.0 fL 82.0-98.0 MEAN CORPUSCULAR HEMOGLOBIN (BEAKER) (test 36.0 pg 27.0-33.0 dzfd=557) MEAN CORPUSCULAR HEMOGLOBIN CONC (BEAKER) (test 33.6 GM/DL 32.0-36.0 xftz=388) RED CELL DISTRIBUTION WIDTH (BEAKER) (test 13.9 % 10.3-14.2 nyll=565) PLATELET COUNT (BEAKER) (test hfod=720) 78 K/CU MM 150-430 MEAN PLATELET VOLUME (BEAKER) (test dzqr=358) 6.2 fL 6.5-10.5 NUCLEATED RED BLOOD CELLS (BEAKER) (test 0 /100 WBC 0-0 jgrg=680) NEUTROPHILS RELATIVE PERCENT (BEAKER) (test 50 % anmi=133) LYMPHOCYTES RELATIVE PERCENT (BEAKER) (test 25 % umjx=790) MONOCYTES RELATIVE PERCENT (BEAKER) (test 19 % bedl=064) EOSINOPHILS RELATIVE PERCENT (BEAKER) (test 6 % uage=251) BASOPHILS RELATIVE PERCENT (BEAKER) (test 1 % nbmj=789) NEUTROPHILS ABSOLUTE COUNT (BEAKER) (test 1.82 K/ L 1.80-8.00 gnfg=858) LYMPHOCYTES ABSOLUTE COUNT (BEAKER) (test 0.91 K/ L 1.48-4.50 qjft=379) MONOCYTES ABSOLUTE COUNT (BEAKER) (test vsry=360) 0.69 K/ L 0.00-1.30 EOSINOPHILS ABSOLUTE COUNT (BEAKER) (test 0.21 K/ L 0.00-0.50 uypo=526) BASOPHILS ABSOLUTE COUNT (BEAKER) (test omky=865) 0.02 K/ L 0.00-0.20 0.00HEPATIC FUNCTION [id number] 08:34:00 Test Item Value Reference Range Comments TOTAL PROTEIN (BEAKER) (test dyyx=586) 5.9 gm/dL 6.0-8.3 ALBUMIN (BEAKER) (test rank=0807) 3.2 g/dL 3.5-5.0 BILIRUBIN TOTAL (BEAKER) (test ranh=882) 5.4 mg/dL 0.2-1.2 BILIRUBIN DIRECT (BEAKER) (test mggh=398) 2.5 mg/dL 0.1-0.5 ALKALINE PHOSPHATASE (BEAKER) (test gpvo=631) 60 U/L 40-150 AST (SGOT) (BEAKER) (test zidw=733) 28 U/L 5-34 ALT (SGPT) (BEAKER) (test atrw=600) 10 U/L 6-55 Specimen moderately [id number] 08:16:00 Test Item Value Reference Range Comments PHOSPHORUS (BEAKER) (test yfuj=014) 3.0 mg/dL 2.3-4.7 [id number] 08:16:00 Test Item Value Reference Range Comments MAGNESIUM (BEAKER) (test mqda=880) 1.6 mg/dL 1.6-2.6 BASIC METABOLIC [id number] 08:16:00 Test Item Value Reference Range Comments SODIUM (BEAKER) (test 133 meq/L 136-145 turk=722) POTASSIUM (BEAKER) (test 3.6 meq/L 3.5-5.1 lgrx=119) CHLORIDE (BEAKER) (test 105 meq/L 98-107 mfrz=512) CO2 (BEAKER) (test 20 meq/L 22-29 esrk=721) BLOOD UREA NITROGEN 18 mg/dL 7-21 (BEAKER) (test cwua=612) CREATININE (BEAKER) (test 1.54 mg/dL 0.57-1.25 cmvk=223) GLUCOSE RANDOM (BEAKER) 70 mg/dL 70-105 (test ggpt=716) CALCIUM (BEAKER) (test 8.2 mg/dL 8.4-10.2 fyhe=136) EGFR (BEAKER) (test 48 mL/min/1.73 sq m ESTIMATED GFR IS NOT xxjf=9395) ACCURATE CREATININE CLEARANCE IN PREDICTING GLOMERULAR FILTRATION RATE. ESTIMATED GFR IS NOT APPLICABLE FOR DIALYSIS PATIENTS. Specimen moderately ictericCBC W/PLT COUNT & AUTO [id number] 08: 06:00 Test Item Value Reference Range Comments WHITE BLOOD CELL COUNT (BEAKER) (test mofe=698) 3.4 K/ L 4.0-10.0 RED BLOOD CELL COUNT (BEAKER) (test zcbc=544) 2.03 M/ L 4.20-5.80 HEMOGLOBIN (BEAKER) (test cmgz=463) 7.3 GM/DL 13.0-16.8 HEMATOCRIT (BEAKER) (test ynuv=005) 21.6 % 40.0-50.0 MEAN CORPUSCULAR VOLUME (BEAKER) (test ttqi=095) 106.0 fL 82.0-98.0 MEAN CORPUSCULAR HEMOGLOBIN (BEAKER) (test 35.8 pg 27.0-33.0 boxj=805) MEAN CORPUSCULAR HEMOGLOBIN CONC (BEAKER) (test 33.7 GM/DL 32.0-36.0 mtsa=671) RED CELL DISTRIBUTION WIDTH (BEAKER) (test 13.5 % 10.3-14.2 vpse=273) PLATELET COUNT (BEAKER) (test yjhj=747) 82 K/CU MM 150-430 MEAN PLATELET VOLUME (BEAKER) (test fiva=491) 6.7 fL 6.5-10.5 NUCLEATED RED BLOOD CELLS (BEAKER) (test 0 /100 WBC 0-0 wequ=143) NEUTROPHILS RELATIVE PERCENT (BEAKER) (test 50 % ybcj=457) LYMPHOCYTES RELATIVE PERCENT (BEAKER) (test 25 % kcnz=180) MONOCYTES RELATIVE PERCENT (BEAKER) (test 19 % ffrh=675) EOSINOPHILS RELATIVE PERCENT (BEAKER) (test 5 % ldcx=778) BASOPHILS RELATIVE PERCENT (BEAKER) (test 1 % vjue=064) NEUTROPHILS ABSOLUTE COUNT (BEAKER) (test 1.69 K/ L 1.80-8.00 qzqm=519) LYMPHOCYTES ABSOLUTE COUNT (BEAKER) (test 0.83 K/ L 1.48-4.50 xosu=462) MONOCYTES ABSOLUTE COUNT (BEAKER) (test qnux=315) 0.65 K/ L 0.00-1.30 EOSINOPHILS ABSOLUTE COUNT (BEAKER) (test 0.17 K/ L 0.00-0.50 sgcc=856) BASOPHILS ABSOLUTE COUNT (BEAKER) (test jbis=402) 0.04 K/ L 0.00-0.20 0.00PROTHROMBIN [id number] 08:01:00 Test Item Value Reference Range Comments PROTIME (BEAKER) (test dkso=548) 27.6 seconds 11.7-14.7 INR (BEAKER) (test inlv=701) 2.6 <=5.9 RECOMMENDED COUMADIN/WARFARIN INR THERAPY RANGESSTANDARD DOSE: 2.0 - 3.0 Includes: PROPHYLAXIS forvenous thrombosis, systemic embolization; TREATMENT for venous thrombosis and/or pulmonary embolus.HIGH RISK: Target INR is 2.5-3.5 for patients with mechanical heart valves.CALCIUM, [id number] 07:58:00 Test Item Value Reference Range Comments CALCIUM IONIZED (BEAKER) (test kmra=944) 1.00 mmol/L 1.12-1.27 PH, BLOOD (BEAKER) (test zpup=0638) 7.53 URINALYSIS W/ [id number] 18:42:00 Test Item Value Reference Range Comments COLOR (BEAKER) (test dzto=977) Yellow CLARITY (BEAKER) (test crsm=034) Clear SPECIFIC GRAVITY UA (BEAKER) (test 1.009 1.001-1.035 kecn=323) PH UA (BEAKER) (test kouj=393) 7.5 5.0-8.0 PROTEIN UA (BEAKER) (test qrys=329) Negative Negative GLUCOSE UA (BEAKER) (test vtal=623) Negative Negative KETONES UA (BEAKER) (test pbiw=360) Negative Negative BILIRUBIN UA (BEAKER) (test qutn=562) Negative Negative BLOOD UA (BEAKER) (test fcrr=663) Negative Negative NITRITE UA (BEAKER) (test obbh=777) Negative Negative LEUKOCYTE ESTERASE UA (BEAKER) (test Negative Negative nomk=997) UROBILINOGEN UA (BEAKER) (test zkoj=595) 3.0 mg/dL 0.2-1.0 RBC UA (BEAKER) (test awuo=111) 6 /HPF WBC UA (BEAKER) (test dnex=689) 1 /HPF SOURCE(BEAKER) (test gneq=6553) Urine, Clean Catch PROTHROMBIN [id number] 15:13:00 Test Item Value Reference Range Comments PROTIME (BEAKER) (test pbku=369) 31.4 seconds 11.7-14.7 INR (BEAKER) (test dpyw=495) 3.0 <=5.9 RECOMMENDED COUMADIN/WARFARIN INR THERAPY RANGESSTANDARD DOSE: 2.0 - 3.0 Includes: PROPHYLAXIS forvenous thrombosis, systemic embolization; TREATMENT for venous thrombosis and/or pulmonary embolus.HIGH RISK: Target INR is 2.5-3.5 for patients with mechanical heart valves.Draw after vitamin K administrationCBC W/PLT COUNT & AUTO [id number] 07:02:00 Test Item Value Reference Range Comments WHITE BLOOD CELL COUNT (BEAKER) (test yvuf=966) 3.0 K/ L 4.0-10.0 RED BLOOD CELL COUNT (BEAKER) (test slpa=679) 2.21 M/ L 4.20-5.80 HEMOGLOBIN (BEAKER) (test fxdg=668) 7.5 GM/DL 13.0-16.8 HEMATOCRIT (BEAKER) (test chdi=555) 23.5 % 40.0-50.0 MEAN CORPUSCULAR VOLUME (BEAKER) (test zesd=713) 106.0 fL 82.0-98.0 MEAN CORPUSCULAR HEMOGLOBIN (BEAKER) (test 34.0 pg 27.0-33.0 imzy=329) MEAN CORPUSCULAR HEMOGLOBIN CONC (BEAKER) (test 32.0 GM/DL 32.0-36.0 sdkz=017) RED CELL DISTRIBUTION WIDTH (BEAKER) (test 13.0 % 10.3-14.2 eeei=726) PLATELET COUNT (BEAKER) (test nmvf=209) 81 K/CU MM 150-430 MEAN PLATELET VOLUME (BEAKER) (test zfqp=432) 6.3 fL 6.5-10.5 NUCLEATED RED BLOOD CELLS (BEAKER) (test 0 /100 WBC 0-0 ecnk=217) NEUTROPHILS RELATIVE PERCENT (BEAKER) (test 52 % ugah=272) LYMPHOCYTES RELATIVE PERCENT (BEAKER) (test 24 % ekml=336) MONOCYTES RELATIVE PERCENT (BEAKER) (test 20 % wlwo=126) EOSINOPHILS RELATIVE PERCENT (BEAKER) (test 3 % mwah=399) BASOPHILS RELATIVE PERCENT (BEAKER) (test 1 % nvwl=236) NEUTROPHILS ABSOLUTE COUNT (BEAKER) (test 1.53 K/ L 1.80-8.00 dlgs=343) LYMPHOCYTES ABSOLUTE COUNT (BEAKER) (test 0.71 K/ L 1.48-4.50 tktp=709) MONOCYTES ABSOLUTE COUNT (BEAKER) (test fotn=311) 0.60 K/ L 0.00-1.30 EOSINOPHILS ABSOLUTE COUNT (BEAKER) (test 0.10 K/ L 0.00-0.50 rmzb=938) BASOPHILS ABSOLUTE COUNT (BEAKER) (test kkgv=462) 0.03 K/ L 0.00-0.20 0.00BASIC METABOLIC [id number] 06:29:00 Test Item Value Reference Range Comments SODIUM (BEAKER) (test 135 meq/L 136-145 anvl=737) POTASSIUM (BEAKER) (test 4.0 meq/L 3.5-5.1 pptr=222) CHLORIDE (BEAKER) (test 106 meq/L 98-107 owrr=627) CO2 (BEAKER) (test 22 meq/L 22-29 rtie=776) BLOOD UREA NITROGEN 17 mg/dL 7-21 (BEAKER) (test hauw=244) CREATININE (BEAKER) (test 1.46 mg/dL 0.57-1.25 zvsq=637) GLUCOSE RANDOM (BEAKER) 75 mg/dL 70-105 (test ihts=045) CALCIUM (BEAKER) (test 8.0 mg/dL 8.4-10.2 frrl=228) EGFR (BEAKER) (test 51 mL/min/1.73 sq m ESTIMATED GFR IS NOT nxgc=8892) ACCURATE CREATININE CLEARANCE IN PREDICTING GLOMERULAR FILTRATION RATE. ESTIMATED GFR IS NOT APPLICABLE FOR DIALYSIS PATIENTS. Specimen moderately ictericHEPATIC FUNCTION [id number] 06:29:00 Test Item Value Reference Range Comments TOTAL PROTEIN (BEAKER) (test hckx=973) 5.9 gm/dL 6.0-8.3 ALBUMIN (BEAKER) (test vpvs=1572) 3.0 g/dL 3.5-5.0 BILIRUBIN TOTAL (BEAKER) (test padu=395) 5.4 mg/dL 0.2-1.2 BILIRUBIN DIRECT (BEAKER) (test trzf=116) 2.7 mg/dL 0.1-0.5 ALKALINE PHOSPHATASE (BEAKER) (test iowq=072) 65 U/L 40-150 AST (SGOT) (BEAKER) (test myfo=198) 27 U/L 5-34 ALT (SGPT) (BEAKER) (test liby=153) 7 U/L 6-55 Specimen moderately ictericPROTHROMBIN [id number] 06:23:00 Test Item Value Reference Range Comments PROTIME (BEAKER) (test nrbn=973) 31.2 seconds 11.7-14.7 INR (BEAKER) (test mxiy=242) 3.0 <=5.9 RECOMMENDED COUMADIN/WARFARIN INR THERAPY RANGESSTANDARD DOSE: 2.0 - 3.0 Includes: PROPHYLAXIS forvenous thrombosis, systemic embolization; TREATMENT for venous thrombosis and/or pulmonary embolus.HIGH RISK: Target INR is 2.5-3.5 for patients with mechanical heart valves.CBC W/PLT COUNT & AUTO [id number] 06:26:00 Test Item Value Reference Range Comments WHITE BLOOD CELL COUNT (BEAKER) (test dyga=281) 3.0 K/ L 4.0-10.0 RED BLOOD CELL COUNT (BEAKER) (test wftk=836) 2.16 M/ L 4.20-5.80 HEMOGLOBIN (BEAKER) (test pytq=598) 7.4 GM/DL 13.0-16.8 HEMATOCRIT (BEAKER) (test hbgg=283) 23.1 % 40.0-50.0 MEAN CORPUSCULAR VOLUME (BEAKER) (test yysc=377) 107.0 fL 82.0-98.0 MEAN CORPUSCULAR HEMOGLOBIN (BEAKER) (test 34.4 pg 27.0-33.0 qoat=007) MEAN CORPUSCULAR HEMOGLOBIN CONC (BEAKER) (test 32.1 GM/DL 32.0-36.0 ivqw=526) RED CELL DISTRIBUTION WIDTH (BEAKER) (test 13.1 % 10.3-14.2 smbu=759) PLATELET COUNT (BEAKER) (test canl=235) 72 K/CU MM 150-430 MEAN PLATELET VOLUME (BEAKER) (test wnct=216) 6.1 fL 6.5-10.5 NUCLEATED RED BLOOD CELLS (BEAKER) (test 0 /100 WBC 0-0 qmfn=544) NEUTROPHILS RELATIVE PERCENT (BEAKER) (test 58 % sdek=721) LYMPHOCYTES RELATIVE PERCENT (BEAKER) (test 21 % lcpr=067) MONOCYTES RELATIVE PERCENT (BEAKER) (test 15 % pghv=925) EOSINOPHILS RELATIVE PERCENT (BEAKER) (test 4 % ayla=546) BASOPHILS RELATIVE PERCENT (BEAKER) (test 1 % sejj=692) NEUTROPHILS ABSOLUTE COUNT (BEAKER) (test 1.73 K/ L 1.80-8.00 oftj=361) LYMPHOCYTES ABSOLUTE COUNT (BEAKER) (test 0.64 K/ L 1.48-4.50 lome=795) MONOCYTES ABSOLUTE COUNT (BEAKER) (test giaa=861) 0.45 K/ L 0.00-1.30 EOSINOPHILS ABSOLUTE COUNT (BEAKER) (test 0.13 K/ L 0.00-0.50 reak=198) BASOPHILS ABSOLUTE COUNT (BEAKER) (test wevw=943) 0.02 K/ L 0.00-0.20 0.00BASIC METABOLIC [id number] 06:24:00 Test Item Value Reference Range Comments SODIUM (BEAKER) (test 134 meq/L 136-145 lcya=682) POTASSIUM (BEAKER) (test 3.7 meq/L 3.5-5.1 wtfn=870) CHLORIDE (BEAKER) (test 105 meq/L 98-107 mgeh=638) CO2 (BEAKER) (test 21 meq/L 22-29 ahom=772) BLOOD UREA NITROGEN 18 mg/dL 7-21 (BEAKER) (test fdaz=666) CREATININE (BEAKER) (test 1.53 mg/dL 0.57-1.25 wyox=629) GLUCOSE RANDOM (BEAKER) 103 mg/dL 70-105 (test vmei=495) CALCIUM (BEAKER) (test 7.6 mg/dL 8.4-10.2 nsms=830) EGFR (BEAKER) (test 48 mL/min/1.73 sq m ESTIMATED GFR IS NOT agyo=6571) ACCURATE CREATININE CLEARANCE IN PREDICTING GLOMERULAR FILTRATION RATE. ESTIMATED GFR IS NOT APPLICABLE FOR DIALYSIS PATIENTS. Specimen moderately ictericHEPATIC FUNCTION [id number] 06:19:00 Test Item Value Reference Range Comments TOTAL PROTEIN (BEAKER) (test gste=513) 5.6 gm/dL 6.0-8.3 ALBUMIN (BEAKER) (test oqxu=3332) 2.4 g/dL 3.5-5.0 BILIRUBIN TOTAL (BEAKER) (test blbe=140) 4.8 mg/dL 0.2-1.2 BILIRUBIN DIRECT (BEAKER) (test gmad=015) 2.6 mg/dL 0.1-0.5 ALKALINE PHOSPHATASE (BEAKER) (test vrne=337) 70 U/L 40-150 AST (SGOT) (BEAKER) (test pcnm=703) 28 U/L 5-34 ALT (SGPT) (BEAKER) (test ilac=231) 11 U/L 6-55 Specimen moderately ictericPROTHROMBIN [id number] 06:00:00 Test Item Value Reference Range Comments PROTIME (BEAKER) (test vdmq=907) 36.7 seconds 11.7-14.7 INR (BEAKER) (test ftil=915) 3.7 <=5.9 RECOMMENDED COUMADIN/WARFARIN INR THERAPY RANGESSTANDARD DOSE: 2.0 - 3.0 Includes: PROPHYLAXIS forvenous thrombosis, systemic embolization; TREATMENT for venous thrombosis and/or pulmonary embolus.HIGH RISK: Target INR is 2.5-3.5 for patients with mechanical heart valves.BODY FLUID CULTURE + GRAM [id number] 00:51:00 Test Item Value Reference Range Comments CULTURE (BEAKER) (test suqu=4938) No growth GRAM STAIN RESULT (BEAKER) (test 3+ WBCs hzey=4894) GRAM STAIN RESULT (BEAKER) (test No organisms seen hffk=06915) BLOOD [id number] 17:08:00 Test Item Value Reference Range Comments CULTURE (BEAKER) (test ozzy=5609) No growth in 5 days BLOOD [id number] 17:06:00 Test Item Value Reference Range Comments CULTURE (BEAKER) (test psze=7784) No growth in 5 days CBC W/PLT COUNT & AUTO [id number] 07:05:00 Test Item Value Reference Range Comments WHITE BLOOD CELL COUNT (BEAKER) (test ckpq=815) 3.5 K/ L 4.0-10.0 RED BLOOD CELL COUNT (BEAKER) (test znht=692) 2.16 M/ L 4.20-5.80 HEMOGLOBIN (BEAKER) (test fwiy=428) 7.8 GM/DL 13.0-16.8 HEMATOCRIT (BEAKER) (test lmhc=098) 23.9 % 40.0-50.0 MEAN CORPUSCULAR VOLUME (BEAKER) (test sjxk=504) 111.0 fL 82.0-98.0 MEAN CORPUSCULAR HEMOGLOBIN (BEAKER) (test 36.3 pg 27.0-33.0 dixc=486) MEAN CORPUSCULAR HEMOGLOBIN CONC (BEAKER) (test 32.8 GM/DL 32.0-36.0 ijtr=068) RED CELL DISTRIBUTION WIDTH (BEAKER) (test 13.9 % 10.3-14.2 kjkv=877) PLATELET COUNT (BEAKER) (test iidg=895) 72 K/CU MM 150-430 MEAN PLATELET VOLUME (BEAKER) (test qhwx=358) 6.4 fL 6.5-10.5 NUCLEATED RED BLOOD CELLS (BEAKER) (test 0 /100 WBC 0-0 qtwd=680) NEUTROPHILS RELATIVE PERCENT (BEAKER) (test 51 % cmmd=265) LYMPHOCYTES RELATIVE PERCENT (BEAKER) (test 25 % btsh=457) MONOCYTES RELATIVE PERCENT (BEAKER) (test 18 % xtct=403) EOSINOPHILS RELATIVE PERCENT (BEAKER) (test 6 % blax=807) BASOPHILS RELATIVE PERCENT (BEAKER) (test 0 % rnrh=403) NEUTROPHILS ABSOLUTE COUNT (BEAKER) (test 1.77 K/ L 1.80-8.00 dnek=051) LYMPHOCYTES ABSOLUTE COUNT (BEAKER) (test 0.87 K/ L 1.48-4.50 pjed=563) MONOCYTES ABSOLUTE COUNT (BEAKER) (test cpme=365) 0.62 K/ L 0.00-1.30 EOSINOPHILS ABSOLUTE COUNT (BEAKER) (test 0.22 K/ L 0.00-0.50 wrzn=564) BASOPHILS ABSOLUTE COUNT (BEAKER) (test ntsm=936) 0.01 K/ L 0.00-0.20 0.00BASI METABOLIC [id number] 06:54:00 Test Item Value Reference Range Comments SODIUM (BEAKER) (test 137 meq/L 136-145 nrnv=387) POTASSIUM (BEAKER) (test 3.8 meq/L 3.5-5.1 qnbs=519) CHLORIDE (BEAKER) (test 109 meq/L 98-107 alkr=790) CO2 (BEAKER) (test 21 meq/L 22-29 efoa=514) BLOOD UREA NITROGEN 17 mg/dL 7-21 (BEAKER) (test csqa=922) CREATININE (BEAKER) (test 1.60 mg/dL 0.57-1.25 pfjt=146) GLUCOSE RANDOM (BEAKER) 76 mg/dL 70-105 (test gyba=421) CALCIUM (BEAKER) (test 7.5 mg/dL 8.4-10.2 mtvg=945) EGFR (BEAKER) (test 46 mL/min/1.73 sq m ESTIMATED GFR IS NOT rcyf=3581) ACCURATE CREATININE CLEARANCE IN PREDICTING GLOMERULAR FILTRATION RATE. ESTIMATED GFR IS NOT APPLICABLE FOR DIALYSIS PATIENTS. Specimen moderately ictericHEPATIC FUNCTION [id number] 06:53:00 Test Item Value Reference Range Comments TOTAL PROTEIN (BEAKER) (test ykfy=700) 5.6 gm/dL 6.0-8.3 ALBUMIN (BEAKER) (test poan=8643) 2.4 g/dL 3.5-5.0 BILIRUBIN TOTAL (BEAKER) (test tktc=306) 4.5 mg/dL 0.2-1.2 BILIRUBIN DIRECT (BEAKER) (test rzwl=711) 2.7 mg/dL 0.1-0.5 ALKALINE PHOSPHATASE (BEAKER) (test csqd=369) 74 U/L 40-150 AST (SGOT) (BEAKER) (test impg=298) 36 U/L 5-34 ALT (SGPT) (BEAKER) (test zcje=786) 13 U/L 6-55 Specimen moderately ictericB-TYPE NATRIURETIC FACTOR (BNP)2017-02-08 06:52:00 Test Item Value Reference Range Comments B-TYPE NATRIURETIC PEPTIDE (BEAKER) (test 446 pg/mL 0-100 hgio=548) PROTHROMBIN [id number] 06:36:00 Test Item Value Reference Range Comments PROTIME (BEAKER) (test yncl=674) 28.7 seconds 11.7-14.7 INR (BEAKER) (test ubgn=579) 2.7 <=5.9 RECOMMENDED COUMADIN/WARFARIN INR THERAPY RANGESSTANDARD DOSE: 2.0 - 3.0 Includes: PROPHYLAXIS forvenous thrombosis, systemic embolization; TREATMENT for venous thrombosis and/or pulmonary embolus.HIGH RISK: Target INR is 2.5-3.5 for patients with mechanical heart valves.EOSINOPHIL SMEAR, [id number] 21: 44:00 Test Item Value Reference Range Comments EOSINOPHIL SMEAR, URINE (BEAKER) (test No EOS seen No EOS seen uxoe=1606) CREATININE, RANDOM [id number] 18:02:00 Test Item Value Reference Range Comments CREATININE URINE (BEAKER) (test vrbq=957) 96.3 mg/dL Reference Range: No NormalsSODIUM, RANDOM [id number] 18:02:00 Test Item Value Reference Range Comments SODIUM URINE (BEAKER) (test qttb=862) 58 meq/L Reference Range: No NormalsURINALYSIS W/ [id number] 17:33:00 Test Item Value Reference Range Comments COLOR (BEAKER) (test froi=616) Yellow CLARITY (BEAKER) (test ptqq=635) Clear SPECIFIC GRAVITY UA (BEAKER) (test mvrq=175) 1.009 1.001-1.035 PH UA (BEAKER) (test sdmv=934) 6.0 5.0-8.0 PROTEIN UA (BEAKER) (test dlrt=789) Negative Negative GLUCOSE UA (BEAKER) (test jcgv=816) Negative Negative KETONES UA (BEAKER) (test cfdp=275) Negative Negative BILIRUBIN UA (BEAKER) (test kutp=458) Negative Negative BLOOD UA (BEAKER) (test fiac=516) Negative Negative NITRITE UA (BEAKER) (test xuhk=687) Negative Negative LEUKOCYTE ESTERASE UA (BEAKER) (test uolr=932) Negative Negative UROBILINOGEN UA (BEAKER) (test impm=627) 4.0 mg/dL 0.2-1.0 RBC UA (BEAKER) (test zuzq=660) < /HPF WBC UA (BEAKER) (test cesv=892) 2 /HPF BACTERIA (BEAKER) (test aasd=221) Rare SOURCE(BEAKER) (test ghwm=3643) CBC W/PLT COUNT & AUTO [id number] 06:53:00 Test Item Value Reference Range Comments WHITE BLOOD CELL COUNT (BEAKER) (test rztu=134) 3.5 K/ L 4.0-10.0 RED BLOOD CELL COUNT (BEAKER) (test vyxs=101) 2.17 M/ L 4.20-5.80 HEMOGLOBIN (BEAKER) (test ksku=088) 7.9 GM/DL 13.0-16.8 HEMATOCRIT (BEAKER) (test lopo=558) 23.9 % 40.0-50.0 MEAN CORPUSCULAR VOLUME (BEAKER) (test fnkx=421) 110.0 fL 82.0-98.0 MEAN CORPUSCULAR HEMOGLOBIN (BEAKER) (test 36.1 pg 27.0-33.0 tlif=154) MEAN CORPUSCULAR HEMOGLOBIN CONC (BEAKER) (test 32.9 GM/DL 32.0-36.0 qihm=088) RED CELL DISTRIBUTION WIDTH (BEAKER) (test 14.0 % 10.3-14.2 zbqh=582) PLATELET COUNT (BEAKER) (test yxub=724) 77 K/CU MM 150-430 MEAN PLATELET VOLUME (BEAKER) (test ftwm=683) 6.1 fL 6.5-10.5 NUCLEATED RED BLOOD CELLS (BEAKER) (test 0 /100 WBC 0-0 jksh=280) NEUTROPHILS RELATIVE PERCENT (BEAKER) (test 56 % ehrf=370) LYMPHOCYTES RELATIVE PERCENT (BEAKER) (test 20 % guhv=931) MONOCYTES RELATIVE PERCENT (BEAKER) (test 18 % tcgn=874) EOSINOPHILS RELATIVE PERCENT (BEAKER) (test 6 % bbjn=987) BASOPHILS RELATIVE PERCENT (BEAKER) (test 1 % hqwm=861) NEUTROPHILS ABSOLUTE COUNT (BEAKER) (test 1.95 K/ L 1.80-8.00 nshm=094) LYMPHOCYTES ABSOLUTE COUNT (BEAKER) (test 0.69 K/ L 1.48-4.50 shhr=864) MONOCYTES ABSOLUTE COUNT (BEAKER) (test gbyc=862) 0.62 K/ L 0.00-1.30 EOSINOPHILS ABSOLUTE COUNT (BEAKER) (test 0.20 K/ L 0.00-0.50 ncul=869) BASOPHILS ABSOLUTE COUNT (BEAKER) (test cqdj=491) 0.03 K/ L 0.00-0.20 0.00BASI METABOLIC [id number] 06:45:00 Test Item Value Reference Range Comments SODIUM (BEAKER) (test 134 meq/L 136-145 julo=085) POTASSIUM (BEAKER) (test 3.6 meq/L 3.5-5.1 tbcy=605) CHLORIDE (BEAKER) (test 106 meq/L 98-107 lufe=227) CO2 (BEAKER) (test 21 meq/L 22-29 gkkh=180) BLOOD UREA NITROGEN 14 mg/dL 7-21 (BEAKER) (test fxcb=129) CREATININE (BEAKER) (test 1.33 mg/dL 0.57-1.25 ugvv=801) GLUCOSE RANDOM (BEAKER) 71 mg/dL 70-105 (test yrrz=906) CALCIUM (BEAKER) (test 7.6 mg/dL 8.4-10.2 zjsu=627) EGFR (BEAKER) (test 57 mL/min/1.73 sq m ESTIMATED GFR IS NOT svoo=1854) ACCURATE CREATININE CLEARANCE IN PREDICTING GLOMERULAR FILTRATION RATE. ESTIMATED GFR IS NOT APPLICABLE FOR DIALYSIS PATIENTS. Specimen moderately ictericHEPATIC FUNCTION [id number] 06:40:00 Test Item Value Reference Range Comments TOTAL PROTEIN (BEAKER) (test lkmq=645) 5.6 gm/dL 6.0-8.3 ALBUMIN (BEAKER) (test ahzg=0797) 2.1 g/dL 3.5-5.0 BILIRUBIN TOTAL (BEAKER) (test fcvf=539) 4.4 mg/dL 0.2-1.2 BILIRUBIN DIRECT (BEAKER) (test fkno=500) 2.9 mg/dL 0.1-0.5 ALKALINE PHOSPHATASE (BEAKER) (test nwrm=235) 86 U/L 40-150 AST (SGOT) (BEAKER) (test nzxe=340) 45 U/L 5-34 ALT (SGPT) (BEAKER) (test rdgf=432) 13 U/L 6-55 Specimen moderately ictericPROTHROMBIN TIME/[id number] 06:05:00 Test Item Value Reference Range Comments PROTIME (BEAKER) (test awsm=544) 29.4 seconds 11.7-14.7 INR (BEAKER) (test iweb=820) 2.8 <=5.9 RECOMMENDED COUMADIN/WARFARIN INR THERAPY RANGESSTANDARD DOSE: 2.0 - 3.0 Includes: PROPHYLAXIS forvenous thrombosis, systemic embolization; TREATMENT for venous thrombosis and/or pulmonary embolus.HIGH RISK: Target INR is 2.5-3.5 for patients with mechanical heart valves.BODY FLUID CELL COUNT WITH [id number] 20:51:00 Test Item Value Reference Range Comments APPEARANCE FLUID (BEAKER) (test xumz=448) Slightly Hazy Clear COLOR FLUID (BEAKER) (test yean=475) Yellow Colorless, Straw RBC FLUID (BEAKER) (test jids=152) 545 /cu mm <=1 ADJUSTED WBC FLUID (BEAKER) (test ayqs=3441) 104 /cu mm <=5 LINING CELLS (BEAKER) (test omon=2474) 1 /cu mm <=1 NEUTROPHILS FLUID (BEAKER) (test lrjm=4054) 3 % LYMPHS FLUID (BEAKER) (test tkoc=457) 13 % MONO/MACROPHAGE FLUID (BEAKER) (test 84 % mcuf=562) EOSINOPHILS FLUID (BEAKER) (test yyev=612) 0 % BASO FLUID (BEAKER) (test ygvu=992) 0 % CONTAINER BODY FLUID (BEAKER) (test EDTA Tube zgry=9440) POCT-GLUCOSE [id number] 18:48:00 Test Item Value Reference Range Comments POC-GLUCOSE METER (BEAKER) 105 mg/dL 70-[address] [facility] [address] [facility] (test tdyw=0570) [facility] [address] BASIC METABOLIC [id number] 05:45:00 Test Item Value Reference Range Comments SODIUM (BEAKER) (test 133 meq/L 136-145 vzvn=279) POTASSIUM (BEAKER) (test 4.3 meq/L 3.5-5.1 Specimen moderately uixu=392) hemolyzed CHLORIDE (BEAKER) (test 107 meq/L 98-107 kccj=354) CO2 (BEAKER) (test 19 meq/L 22-29 fyaw=982) BLOOD UREA NITROGEN 10 mg/dL 7-21 (BEAKER) (test rqia=119) CREATININE (BEAKER) (test 0.86 mg/dL 0.57-1.25 Specimen moderately kgfk=345) hemolyzed GLUCOSE RANDOM (BEAKER) 68 mg/dL 70-105 (test tyjp=357) CALCIUM (BEAKER) (test 7.5 mg/dL 8.4-10.2 sdqj=740) EGFR (BEAKER) (test 94 mL/min/1.73 sq m ESTIMATED GFR IS NOT tqam=2798) ACCURATE CREATININE CLEARANCE IN PREDICTING GLOMERULAR FILTRATION RATE. ESTIMATED GFR IS NOT APPLICABLE FOR DIALYSIS PATIENTS. Specimen slightly ictericHEPATIC FUNCTION [id number] 05:45:00 Test Item Value Reference Range Comments TOTAL PROTEIN (BEAKER) (test 5.9 gm/dL 6.0-8.3 Specimen moderately hemolyzed dxpo=959) ALBUMIN (BEAKER) (test 1.9 g/dL 3.5-5.0 Specimen moderately hemolyzed naok=3623) BILIRUBIN TOTAL (BEAKER) (test 4.4 mg/dL 0.2-1.2 Specimen moderately hemolyzed euko=944) BILIRUBIN DIRECT (BEAKER) 2.6 mg/dL 0.1-0.5 Specimen moderately hemolyzed (test gzns=176) ALKALINE PHOSPHATASE (BEAKER) 86 U/L 40-150 (test ecbf=336) AST (SGOT) (BEAKER) (test 74 U/L 5-34 Specimen moderately hemolyzed ykqz=452) ALT (SGPT) (BEAKER) (test 17 U/L 6-55 Specimen moderately wmak=625) hemolyzed Specimen slightly ictericCBC W/PLT COUNT & AUTO [id number] 05:21 :00 Test Item Value Reference Range Comments WHITE BLOOD CELL COUNT (BEAKER) (test gdfu=660) 3.5 K/ L 4.0-10.0 RED BLOOD CELL COUNT (BEAKER) (test mxff=208) 2.06 M/ L 4.20-5.80 HEMOGLOBIN (BEAKER) (test lkwv=764) 7.9 GM/DL 13.0-16.8 HEMATOCRIT (BEAKER) (test tolh=447) 22.8 % 40.0-50.0 MEAN CORPUSCULAR VOLUME (BEAKER) (test gplx=134) 110.0 fL 82.0-98.0 MEAN CORPUSCULAR HEMOGLOBIN (BEAKER) (test 38.2 pg 27.0-33.0 fiem=621) MEAN CORPUSCULAR HEMOGLOBIN CONC (BEAKER) (test 34.6 GM/DL 32.0-36.0 bqrd=323) RED CELL DISTRIBUTION WIDTH (BEAKER) (test 13.5 % 10.3-14.2 bdxx=597) PLATELET COUNT (BEAKER) (test wrfk=947) 61 K/CU MM 150-430 MEAN PLATELET VOLUME (BEAKER) (test rcpi=914) 6.8 fL 6.5-10.5 NUCLEATED RED BLOOD CELLS (BEAKER) (test 0 /100 WBC 0-0 zpyn=437) NEUTROPHILS RELATIVE PERCENT (BEAKER) (test 51 % giaf=882) LYMPHOCYTES RELATIVE PERCENT (BEAKER) (test 24 % gxyx=526) MONOCYTES RELATIVE PERCENT (BEAKER) (test 18 % pvzf=158) EOSINOPHILS RELATIVE PERCENT (BEAKER) (test 7 % wlaq=986) BASOPHILS RELATIVE PERCENT (BEAKER) (test 1 % avtd=949) NEUTROPHILS ABSOLUTE COUNT (BEAKER) (test 1.76 K/ L 1.80-8.00 accw=224) LYMPHOCYTES ABSOLUTE COUNT (BEAKER) (test 0.85 K/ L 1.48-4.50 sker=608) MONOCYTES ABSOLUTE COUNT (BEAKER) (test nabr=686) 0.61 K/ L 0.00-1.30 EOSINOPHILS ABSOLUTE COUNT (BEAKER) (test 0.23 K/ L 0.00-0.50 azoz=769) BASOPHILS ABSOLUTE COUNT (BEAKER) (test whmw=794) 0.02 K/ L 0.00-0.20 0.00PROTHROMBIN [id number] 05:19:00 Test Item Value Reference Range Comments PROTIME (BEAKER) (test icsk=552) 28.2 seconds 11.7-14.7 INR (BEAKER) (test qxwq=010) 2.6 <=5.9 RECOMMENDED COUMADIN/WARFARIN INR THERAPY RANGESSTANDARD DOSE: 2.0 - 3.0 Includes: PROPHYLAXIS forvenous thrombosis, systemic embolization; TREATMENT for venous thrombosis and/or pulmonary embolus.HIGH RISK: Target INR is 2.5-3.5 for patients with mechanical heart valves.BODY FLUID CULTURE + GRAM [id number] 14:14:00 Test Item Value Reference Range Comments CULTURE (BEAKER) (test ydfv=5846) No growth GRAM STAIN RESULT (BEAKER) (test 2+ WBCs jdbf=6624) GRAM STAIN RESULT (BEAKER) (test No organisms seen ldkb=20031) CBC W/PLT COUNT & AUTO [id number] 10:28:00 Test Item Value Reference Range Comments WHITE BLOOD CELL COUNT (BEAKER) (test knet=646) 3.6 K/ L 4.0-10.0 RED BLOOD CELL COUNT (BEAKER) (test gexf=199) 2.17 M/ L 4.20-5.80 HEMOGLOBIN (BEAKER) (test boce=517) 7.7 GM/DL 13.0-16.8 HEMATOCRIT (BEAKER) (test xcfb=763) 23.8 % 40.0-50.0 MEAN CORPUSCULAR VOLUME (BEAKER) (test lton=335) 110.0 fL 82.0-98.0 MEAN CORPUSCULAR HEMOGLOBIN (BEAKER) (test 35.3 pg 27.0-33.0 cvwk=920) MEAN CORPUSCULAR HEMOGLOBIN CONC (BEAKER) (test 32.1 GM/DL 32.0-36.0 xxnt=088) RED CELL DISTRIBUTION WIDTH (BEAKER) (test 13.7 % 10.3-14.2 dvoq=358) PLATELET COUNT (BEAKER) (test rhlq=569) 62 K/CU MM 150-430 MEAN PLATELET VOLUME (BEAKER) (test jees=141) 6.5 fL 6.5-10.5 NUCLEATED RED BLOOD CELLS (BEAKER) (test 0 /100 WBC 0-0 xgtj=357) NEUTROPHILS RELATIVE PERCENT (BEAKER) (test 58 % osza=597) LYMPHOCYTES RELATIVE PERCENT (BEAKER) (test 18 % lqjy=203) MONOCYTES RELATIVE PERCENT (BEAKER) (test 17 % xhzg=978) EOSINOPHILS RELATIVE PERCENT (BEAKER) (test 8 % ridw=521) BASOPHILS RELATIVE PERCENT (BEAKER) (test 0 % sjfv=267) NEUTROPHILS ABSOLUTE COUNT (BEAKER) (test 2.10 K/ L 1.80-8.00 hmeo=959) LYMPHOCYTES ABSOLUTE COUNT (BEAKER) (test 0.63 K/ L 1.48-4.50 bxys=240) MONOCYTES ABSOLUTE COUNT (BEAKER) (test xyvd=764) 0.59 K/ L 0.00-1.30 EOSINOPHILS ABSOLUTE COUNT (BEAKER) (test 0.28 K/ L 0.00-0.50 bosz=396) BASOPHILS ABSOLUTE COUNT (BEAKER) (test slux=590) 0.00 K/ L 0.00-0.20 [id number] 10:16:00 Test Item Value Reference Range Comments PROCALCITONIN (BEAKER) (test nahk=3104) < ng/mL <0.05 SEPSIS RISK (ng/mL)Low: 0.05-0.50Intermediate: 0.51-2.00High: & gt;=2.01HEPATIC FUNCTION [id number] 06:26:00 Test Item Value Reference Range Comments TOTAL PROTEIN (BEAKER) (test fnyx=691) 5.6 gm/dL 6.0-8.3 ALBUMIN (BEAKER) (test mrcp=0954) 1.9 g/dL 3.5-5.0 BILIRUBIN TOTAL (BEAKER) (test naum=293) 4.7 mg/dL 0.2-1.2 BILIRUBIN DIRECT (BEAKER) (test eioc=686) 2.9 mg/dL 0.1-0.5 ALKALINE PHOSPHATASE (BEAKER) (test yclv=482) 85 U/L 40-150 AST (SGOT) (BEAKER) (test vkxj=791) 53 U/L 5-34 ALT (SGPT) (BEAKER) (test lilf=242) 14 U/L 6-55 Specimen moderately ictericBASIC METABOLIC [id number] 06:26:00 Test Item Value Reference Range Comments SODIUM (BEAKER) (test 134 meq/L 136-145 gxnv=303) POTASSIUM (BEAKER) (test 3.8 meq/L 3.5-5.1 oafm=076) CHLORIDE (BEAKER) (test 107 meq/L 98-107 whjc=300) CO2 (BEAKER) (test 19 meq/L 22-29 ftyg=062) BLOOD UREA NITROGEN 8 mg/dL 7-21 (BEAKER) (test keck=535) CREATININE (BEAKER) (test 0.73 mg/dL 0.57-1.25 nlhr=698) GLUCOSE RANDOM (BEAKER) 73 mg/dL 70-105 (test wllt=617) CALCIUM (BEAKER) (test 7.2 mg/dL 8.4-10.2 yzcs=428) EGFR (BEAKER) (test 113 mL/min/1.73 sq m ESTIMATED GFR IS NOT ckwq=2131) ACCURATE CREATININE CLEARANCE IN PREDICTING GLOMERULAR FILTRATION RATE. ESTIMATED GFR IS NOT APPLICABLE FOR DIALYSIS PATIENTS. Specimen moderately ictericPROTHROMBIN [id number] 06:05:00 Test Item Value Reference Range Comments PROTIME (BEAKER) (test xjml=301) 30.9 seconds 11.7-14.7 INR (BEAKER) (test reky=383) 3.0 <=5.9 RECOMMENDED COUMADIN/WARFARIN INR THERAPY RANGESSTANDARD DOSE: 2.0 - 3.0 Includes: PROPHYLAXIS forvenous thrombosis, systemic embolization; TREATMENT for venous thrombosis and/or pulmonary embolus.HIGH RISK: Target INR is 2.5-3.5 for patients with mechanical heart valves.[id number] 05:54:00 Test Item Value Reference Range Comments PREALBUMIN (BEAKER) (test hydj=856) < mg/dL 14-45 URINE [id number] 12:11:00 Test Item Value Reference Range Comments CULTURE (BEAKER) (test peli=3682) No growth VANCOMYCIN LEVEL, [id number] 09:26:00 Test Item Value Reference Range Comments VANCOMYCIN TROUGH (BEAKER) (test fgco=893) 15.3 ug/mL 10.0-20.0 HEPATIC FUNCTION [id number] 06:17:00 Test Item Value Reference Range Comments TOTAL PROTEIN (BEAKER) (test yyca=015) 5.6 gm/dL 6.0-8.3 ALBUMIN (BEAKER) (test xmei=1184) 2.0 g/dL 3.5-5.0 BILIRUBIN TOTAL (BEAKER) (test gwda=260) 4.2 mg/dL 0.2-1.2 BILIRUBIN DIRECT (BEAKER) (test dzzn=293) 2.7 mg/dL 0.1-0.5 ALKALINE PHOSPHATASE (BEAKER) (test muws=609) 98 U/L 40-150 AST (SGOT) (BEAKER) (test kqee=915) 45 U/L 5-34 ALT (SGPT) (BEAKER) (test ggte=206) 12 U/L 6-55 Specimen slightly ictericBASIC METABOLIC [id number] 06:17:00 Test Item Value Reference Range Comments SODIUM (BEAKER) (test 133 meq/L 136-145 xlsr=853) POTASSIUM (BEAKER) (test 3.4 meq/L 3.5-5.1 rwdb=971) CHLORIDE (BEAKER) (test 107 meq/L 98-107 rnrl=930) CO2 (BEAKER) (test 22 meq/L 22-29 wswp=634) BLOOD UREA NITROGEN 7 mg/dL 7-21 (BEAKER) (test jpwf=552) CREATININE (BEAKER) (test 0.73 mg/dL 0.57-1.25 kyzy=549) GLUCOSE RANDOM (BEAKER) 87 mg/dL 70-105 (test bwfw=733) CALCIUM (BEAKER) (test 7.2 mg/dL 8.4-10.2 jjjm=701) EGFR (BEAKER) (test 113 mL/min/1.73 sq m ESTIMATED GFR IS NOT xbix=6817) ACCURATE CREATININE CLEARANCE IN PREDICTING GLOMERULAR FILTRATION RATE. ESTIMATED GFR IS NOT APPLICABLE FOR DIALYSIS PATIENTS. Specimen slightly ictericPROTHROMBIN [id number] 06:04:00 Test Item Value Reference Range Comments PROTIME (BEAKER) (test zznk=522) 31.7 seconds 11.7-14.7 INR (BEAKER) (test blwq=893) 3.0 <=5.9 RECOMMENDED COUMADIN/WARFARIN INR THERAPY RANGESSTANDARD DOSE: 2.0 - 3.0 Includes: PROPHYLAXIS forvenous thrombosis, systemic embolization; TREATMENT for venous thrombosis and/or pulmonary embolus.HIGH RISK: Target INR is 2.5-3.5 for patients with mechanical heart valves.VITAMIN B12 AND [id number] 19:36 :00 Test Item Value Reference Range Comments VITAMIN B12 (BEAKER) (test okvg=838) 1121 pg/mL 213-816 FOLATE (BEAKER) (test mmkf=419) 18.3 ng/mL >=7.0 Effective 09/13/2014: Folate Reference Range ChangeNew: >=7.0 Previous: & gt;=5.4VITAMIN B12 AND [id number] 14:57:00 Test Item Value Reference Range Comments VITAMIN B12 (BEAKER) (test hdvd=677) 1325 pg/mL 213-816 FOLATE (BEAKER) (test aweb=876) 8.3 ng/mL >=7.0 Effective 09/13/2014: Folate Reference Range ChangeNew: >=7.0 Previous: & gt;=5.4ANTI-NUCLEAR ANTIBODY (CHERYL)2017-02-03 13:56:00 Test Item Value Reference Range Comments ANTI-NUCLEAR ANTIBODY (CHERYL) (BEAKER) (test Negative Negative grnt=426) HEPATITIS B CORE ANTIBODY, [id number] 12:27:00 Test Item Value Reference Range Comments HEPATITIS B CORE TOTAL ANTIBODY (BEAKER) (test Nonreactive Nonreactive cxdq=087) CRYPTOCOCCAL [id number] 11:25:00 Test Item Value Reference Range Comments CRYPTOCOCCAL ANTIGEN, SERUM (BEAKER) (test Negative Negative, Interference rexs=6431) HEPATITIS B SURFACE [id number] 11:15:00 Test Item Value Reference Range Comments HEPATITIS B SURFACE ANTIBODY (BEAKER) (test < mIU/mL <8.0 dzqa=866) HEPATITIS B SURFACE [id number] 09:53:00 Test Item Value Reference Range Comments HEPATITIS B SURFACE ANTIGEN (2) (BEAKER) (test Nonreactive Nonreactive mxce=6429) HIV-1 ANTIGEN WITH HIV-1/2 [id number] 09:53:00 Test Item Value Reference Range Comments HIV-1 ANTIGEN WITH HIV 1\\T\\2 ANTIBODY (2) Nonreactive Nonreactive (BEAKER) (test vwwj=7481) HEPATIC FUNCTION [id number] 07:01:00 Test Item Value Reference Range Comments TOTAL PROTEIN (BEAKER) (test qwnv=952) 5.5 gm/dL 6.0-8.3 ALBUMIN (BEAKER) (test eqng=9430) 2.0 g/dL 3.5-5.0 BILIRUBIN TOTAL (BEAKER) (test ekhi=040) 3.8 mg/dL 0.2-1.2 BILIRUBIN DIRECT (BEAKER) (test fqnb=434) 2.5 mg/dL 0.1-0.5 ALKALINE PHOSPHATASE (BEAKER) (test omtl=010) 108 U/L 40-150 AST (SGOT) (BEAKER) (test yhmm=915) 40 U/L 5-34 ALT (SGPT) (BEAKER) (test wguf=412) 10 U/L 6-55 Specimen slightly ictericBASIC METABOLIC [id number] 07:01:00 Test Item Value Reference Range Comments SODIUM (BEAKER) (test 133 meq/L 136-145 hlnh=992) POTASSIUM (BEAKER) (test 3.7 meq/L 3.5-5.1 ueag=478) CHLORIDE (BEAKER) (test 108 meq/L 98-107 xlsp=569) CO2 (BEAKER) (test 20 meq/L 22-29 pbaa=350) BLOOD UREA NITROGEN 7 mg/dL 7-21 (BEAKER) (test kgfw=284) CREATININE (BEAKER) (test 0.76 mg/dL 0.57-1.25 qzyj=083) GLUCOSE RANDOM (BEAKER) 100 mg/dL 70-105 (test qrtf=347) CALCIUM (BEAKER) (test 7.3 mg/dL 8.4-10.2 spxm=078) EGFR (BEAKER) (test 108 mL/min/1.73 sq m ESTIMATED GFR IS NOT tdbb=3313) ACCURATE CREATININE CLEARANCE IN PREDICTING GLOMERULAR FILTRATION RATE. ESTIMATED GFR IS NOT APPLICABLE FOR DIALYSIS PATIENTS. Specimen slightly ictericCBC W/PLT COUNT & AUTO [id number] 06:53 :00 Test Item Value Reference Range Comments WHITE BLOOD CELL COUNT (BEAKER) (test cfgc=116) 3.5 K/ L 4.0-10.0 RED BLOOD CELL COUNT (BEAKER) (test hqhs=323) 1.83 M/ L 4.20-5.80 HEMOGLOBIN (BEAKER) (test xdcy=440) 7.3 GM/DL 13.0-16.8 HEMATOCRIT (BEAKER) (test vcdk=094) 19.9 % 40.0-50.0 MEAN CORPUSCULAR VOLUME (BEAKER) (test aqyi=465) 109.0 fL 82.0-98.0 MEAN CORPUSCULAR HEMOGLOBIN (BEAKER) (test 39.9 pg 27.0-33.0 zgdl=743) MEAN CORPUSCULAR HEMOGLOBIN CONC (BEAKER) (test 36.6 GM/DL 32.0-36.0 nccu=701) RED CELL DISTRIBUTION WIDTH (BEAKER) (test 14.3 % 10.3-14.2 fbwo=511) PLATELET COUNT (BEAKER) (test kxly=211) 35 K/CU MM 150-430 MEAN PLATELET VOLUME (BEAKER) (test xmme=255) 6.6 fL 6.5-10.5 NUCLEATED RED BLOOD CELLS (BEAKER) (test 0 /100 WBC 0-0 dzup=870) NEUTROPHILS RELATIVE PERCENT (BEAKER) (test 60 % eqlk=442) LYMPHOCYTES RELATIVE PERCENT (BEAKER) (test 18 % lugf=627) MONOCYTES RELATIVE PERCENT (BEAKER) (test 17 % cjyd=076) EOSINOPHILS RELATIVE PERCENT (BEAKER) (test 6 % mann=225) BASOPHILS RELATIVE PERCENT (BEAKER) (test 0 % rgge=452) NEUTROPHILS ABSOLUTE COUNT (BEAKER) (test 2.06 K/ L 1.80-8.00 hbmm=561) LYMPHOCYTES ABSOLUTE COUNT (BEAKER) (test 0.61 K/ L 1.48-4.50 xbzx=344) MONOCYTES ABSOLUTE COUNT (BEAKER) (test fylx=632) 0.58 K/ L 0.00-1.30 EOSINOPHILS ABSOLUTE COUNT (BEAKER) (test 0.19 K/ L 0.00-0.50 fbbh=559) BASOPHILS ABSOLUTE COUNT (BEAKER) (test etgt=607) 0.01 K/ L 0.00-0.20 0.00PROTHROMBIN [id number] 06:39:00 Test Item Value Reference Range Comments PROTIME (BEAKER) (test qjbi=347) 30.6 seconds 11.7-14.7 INR (BEAKER) (test ujln=443) 2.9 <=5.9 RECOMMENDED COUMADIN/WARFARIN INR THERAPY RANGESSTANDARD DOSE: 2.0 - 3.0 Includes: PROPHYLAXIS forvenous thrombosis, systemic embolization; TREATMENT for venous thrombosis and/or pulmonary embolus.HIGH RISK: Target INR is 2.5-3.5 for patients with mechanical heart valves.URINALYSIS W/ [id number] 16 :58:00 Test Item Value Reference Range Comments COLOR (BEAKER) (test dmwt=196) Yellow CLARITY (BEAKER) (test rnnz=510) Clear SPECIFIC GRAVITY UA (BEAKER) (test 1.025 1.001-1.035 rbvc=765) PH UA (BEAKER) (test fmgz=491) 7.0 5.0-8.0 PROTEIN UA (BEAKER) (test ghpc=790) Negative Negative GLUCOSE UA (BEAKER) (test wknk=945) Negative Negative KETONES UA (BEAKER) (test okpn=683) Negative Negative BILIRUBIN UA (BEAKER) (test ufov=785) Positive Negative BLOOD UA (BEAKER) (test mket=711) Negative Negative NITRITE UA (BEAKER) (test bqgi=685) Negative Negative LEUKOCYTE ESTERASE UA (BEAKER) (test Negative Negative rrbh=860) UROBILINOGEN UA (BEAKER) (test tkzb=507) 8.0 mg/dL 0.2-1.0 RBC UA (BEAKER) (test hxtp=965) 0 /HPF WBC UA (BEAKER) (test nwnj=550) 2 /HPF MUCUS (BEAKER) (test awnf=1904) Rare HYALINE CASTS (BEAKER) (test nmuk=350) 3 /LPF SOURCE(BEAKER) (test dugz=9479) Urine, Clean Catch [id number] 13:32:00 Test Item Value Reference Range Comments FERRITIN (BEAKER) (test umdl=824) 116 ng/mL 5-275 Effective 09/13/2014: Reference Range ChangeNew: Male 5-275 Previous: Male 22-322 Female 5-275 Female 10-291HEPATITIS A ANTIBODY, [id number] 13:19:00 Test Item Value Reference Range Comments HEPATITIS A IGG ANTIBODY (BEAKER) (test yhxg=8478) Reactive Nonreactive ALPHA FETOPROTEIN (AFP), TUMOR [id number] 13:17:00 Test Item Value Reference Range Comments ALPHA-FETOPROTEIN (BEAKER) (test ulfy=9073) 4.5 ng/mL <10.0 Effective 09/13/2014: Reference Range ChangeNew: <10.0 Previous: 0.0- 8.0HEPATITIS C [id number] 13:17:00 Test Item Value Reference Range Comments HEPATITIS C ANTIBODY (BEAKER) (test yzig=686) Nonreactive Nonreactive BODY FLUID CELL COUNT WITH [id number] 13:03:00 Test Item Value Reference Range Comments APPEARANCE FLUID (BEAKER) (test muda=404) Cloudy Clear COLOR FLUID (BEAKER) (test feha=878) Yellow Colorless, Straw RBC FLUID (BEAKER) (test nfiw=591) 1519 /cu mm <=1 ADJUSTED WBC FLUID (BEAKER) (test knry=0089) 108 /cu mm <=5 LINING CELLS (BEAKER) (test nzrp=3814) 14 /cu mm <=1 NEUTROPHILS FLUID (BEAKER) (test guyz=8777) 11 % LYMPHS FLUID (BEAKER) (test yekp=507) 30 % MONO/MACROPHAGE FLUID (BEAKER) (test bnob=726) 59 % EOSINOPHILS FLUID (BEAKER) (test zawt=618) 0 % BASO FLUID (BEAKER) (test umry=480) 0 % CONTAINER BODY FLUID (BEAKER) (test acoo=1720) EDTA Tube BASIC METABOLIC [id number] 12:56:00 Test Item Value Reference Range Comments SODIUM (BEAKER) (test 131 meq/L 136-145 uvdg=604) POTASSIUM (BEAKER) (test 4.0 meq/L 3.5-5.1 Specimen moderately ruld=564) hemolyzed CHLORIDE (BEAKER) (test 105 meq/L 98-107 owtk=049) CO2 (BEAKER) (test 18 meq/L 22-29 elat=167) BLOOD UREA NITROGEN 6 mg/dL 7-21 (BEAKER) (test ftii=667) CREATININE (BEAKER) (test 0.72 mg/dL 0.57-1.25 Specimen moderately dzqu=272) hemolyzed GLUCOSE RANDOM (BEAKER) 103 mg/dL 70-105 (test asfl=618) CALCIUM (BEAKER) (test 7.4 mg/dL 8.4-10.2 axdb=994) EGFR (BEAKER) (test 115 mL/min/1.73 sq m ESTIMATED GFR IS NOT jest=2908) ACCURATE CREATININE CLEARANCE IN PREDICTING GLOMERULAR FILTRATION RATE. ESTIMATED GFR IS NOT APPLICABLE FOR DIALYSIS PATIENTS. Specimen moderately ictericIRON, TIBC, % SAT. (WITHOUT FERRITIN)2017-02-02 12:56 :00 Test Item Value Reference Range Comments IRON (BEAKER) (test qhyj=868) 55 ug/dL 40-160 TOTAL IRON BINDING CAPACITY (BEAKER) (test 175 ug/dL 250-450 hogs=776) IRON % SATURATION (2) (BEAKER) (test umcv=6756) 31 % 20-55 HEPATIC FUNCTION [id number] 12:50:00 Test Item Value Reference Range Comments TOTAL PROTEIN (BEAKER) (test 6.7 gm/dL 6.0-8.3 Specimen moderately hemolyzed wwez=135) ALBUMIN (BEAKER) (test 2.0 g/dL 3.5-5.0 Specimen moderately hemolyzed piar=9343) BILIRUBIN TOTAL (BEAKER) (test 5.1 mg/dL 0.2-1.2 Specimen moderately hemolyzed joeo=703) BILIRUBIN DIRECT (BEAKER) 2.8 mg/dL 0.1-0.5 Specimen moderately hemolyzed (test ifkb=977) ALKALINE PHOSPHATASE (BEAKER) 99 U/L 40-150 (test xyup=178) AST (SGOT) (BEAKER) (test 62 U/L 5-34 Specimen moderately hemolyzed fufk=884) ALT (SGPT) (BEAKER) (test 15 U/L 6-55 Specimen moderately baly=287) hemolyzed Specimen moderately ictericCBC W/PLT COUNT & AUTO [id number] 12: 47:00 Test Item Value Reference Range Comments WHITE BLOOD CELL COUNT (BEAKER) (test krui=691) 3.3 K/ L 4.0-10.0 RED BLOOD CELL COUNT (BEAKER) (test hdif=942) 2.08 M/ L 4.20-5.80 HEMOGLOBIN (BEAKER) (test mwkx=402) 7.8 GM/DL 13.0-16.8 HEMATOCRIT (BEAKER) (test vjmt=796) 22.9 % 40.0-50.0 MEAN CORPUSCULAR VOLUME (BEAKER) (test fqxh=921) 110.0 fL 82.0-98.0 MEAN CORPUSCULAR HEMOGLOBIN (BEAKER) (test 37.4 pg 27.0-33.0 wwrp=576) MEAN CORPUSCULAR HEMOGLOBIN CONC (BEAKER) (test 34.1 GM/DL 32.0-36.0 sklc=392) RED CELL DISTRIBUTION WIDTH (BEAKER) (test 15.0 % 10.3-14.2 fxnx=519) PLATELET COUNT (BEAKER) (test vwet=943) 48 K/CU MM 150-430 MEAN PLATELET VOLUME (BEAKER) (test aido=802) 6.6 fL 6.5-10.5 NUCLEATED RED BLOOD CELLS (BEAKER) (test 0 /100 WBC 0-0 njvy=844) NEUTROPHILS RELATIVE PERCENT (BEAKER) (test 62 % dgsz=613) LYMPHOCYTES RELATIVE PERCENT (BEAKER) (test 17 % iqhc=465) MONOCYTES RELATIVE PERCENT (BEAKER) (test 15 % jriy=743) EOSINOPHILS RELATIVE PERCENT (BEAKER) (test 6 % mkvo=175) BASOPHILS RELATIVE PERCENT (BEAKER) (test 0 % ffrh=438) NEUTROPHILS ABSOLUTE COUNT (BEAKER) (test 2.03 K/ L 1.80-8.00 syao=176) LYMPHOCYTES ABSOLUTE COUNT (BEAKER) (test 0.57 K/ L 1.48-4.50 gutf=277) MONOCYTES ABSOLUTE COUNT (BEAKER) (test eqqf=145) 0.48 K/ L 0.00-1.30 EOSINOPHILS ABSOLUTE COUNT (BEAKER) (test 0.19 K/ L 0.00-0.50 fcez=292) BASOPHILS ABSOLUTE COUNT (BEAKER) (test srvd=915) 0.01 K/ L 0.00-0.20 0.00PROTHROMBIN [id number] 12:42:00 Test Item Value Reference Range Comments PROTIME (BEAKER) (test wmsk=545) 27.0 seconds 11.7-14.7 INR (BEAKER) (test gicm=349) 2.5 <=5.9 RECOMMENDED COUMADIN/WARFARIN INR THERAPY RANGESSTANDARD DOSE: 2.0 - 3.0 Includes: PROPHYLAXIS forvenous thrombosis, systemic embolization; TREATMENT for venous thrombosis and/or pulmonary embolus.HIGH RISK: Target INR is 2.5-3.5 for patients with mechanical heart valves.ALBUMIN, BODY [id number] 11:46:00 Test Item Value Reference Range Comments ALBUMIN FLUID (BEAKER) (test zbtz=688) 0.5 gm/dL Reference Range: No Normals Assay performance has not been validated for this type of specimen.PROTEIN, BODY [id number] 11:42:00 Test Item Value Reference Range Comments PROTEIN FLUID (BEAKER) (test lbnk=193) 1.3 g/dL Absence of reference range indicates that normals have not been defined.Assay performance has not been validated for this type of specimen.
--- OUTSIDE RECORDS SUMMARY | 2019-01-25 14:54 | XMS REPORT ---
[...] Dosage System Date Date Midodrine HCl [facility] 65159023120 10 MG Orally Active 1 tablet Three times a day Pantoprazole [facility] 92862660793 40 MG Orally Active 1 tablet Sodium Once a day Sodium Chloride ND 37330617476 1 GM Orally TID Active 2 tablets Ondansetron HCl ND 38452370207 4 MG Orally Active 1 tab every 8 hours as needed for Nausea and vomiting Hydrocortisone ND 32234427634 20 MG Orally AM Active 1 tablet Once a day with food or milk Ursodiol ND 57032343137 300 MG Orally Active not defined Lactulose ND 71963548603 10 GM/15ML Active 15 ml Orally TID Citalopram [facility] 69927983291 10 MG Active TAKE ONE Hydrobromide DAILY Rifaximin [facility] [address]-42 550 MG Orally Active 1 tablet Twice a day Ondansetron HCl [facility] 93698438208 4 MG Active 1 TAB EVERY 8 HOURS NEEDED FOR NAUSEA AND VOMITING ORALLY 10 DAYS Magnesium Oxide [facility] 25176339877 400 MG Orally Active 1 tablet BID as needed NuFera [facility] 92254664370 - Orally once a Active 1 tab day Hydrocortisone [facility] 04743837417 10 MG Orally PM Active 1 tablet Once a day with food or milk Results No Known Results Summary Purpose eClinicalWorks Submission
--- OUTSIDE RECORDS SUMMARY | 2019-01-25 14:54 | XMS REPORT ---
[...] Status Dosage System Date Date Ensure High [facility] 98910026712 - Orally every Oct 19, Active drink 320 Protein 4-6 hours 2018 ml Ondansetron HCl ND 66100150549 4 MG Orally Active 1 tablet every 6 hours as needed for nausea/vo miting Results No Known Results Summary Purpose eClinicalWorks Submission
--- OUTSIDE RECORDS SUMMARY | 2019-01-25 14:54 | XMS REPORT ---
[...] Date Date Ondansetron HCl [facility] 79190120623 4 MG Orally Active 1 tab every 8 hours as needed for Nausea and vomiting Hydrocortisone ND 86057034868 20 MG Orally AM Active 1 tablet Once a day with food or milk Magnesium Oxide ND 62997133676 400 MG Orally Active 1 tablet BID as needed Rifaximin [facility] [address]-86 550 MG Orally Active 1 tablet Twice a day Pantoprazole ND 53460942481 40 MG Orally Active 1 tablet Sodium Once a day Sodium Chloride ND 91769993976 1 GM Orally TID Active 2 tablets Lactulose ND 78944928052 10 GM/15ML Active 15 ml Orally TID Ondansetron HCl [facility] 08874350921 4 MG Active 1 TAB EVERY 8 HOURS NEEDED FOR NAUSEA AND VOMITING ORALLY 10 DAYS Citalopram [facility] 93483886109 40 MG Orally Active take one Hydrobromide once a day daily Hydrocortisone [facility] 90044339727 10 MG Orally PM Active 1 tablet Once a day with food or milk NuFera [facility] 34579079813 - Orally once a Active 1 tab day Citalopram [facility] 89488637542 10 MG Active TAKE ONE Hydrobromide DAILY Ursodiol [facility] 12689042253 300 MG Orally Active not defined Midodrine HCl [facility] 30944336291 10 MG Orally Active 1 tablet Three times a day Results No Known Results Summary Purpose eClinicalWorks Submission
--- OUTSIDE RECORDS SUMMARY | 2019-01-25 14:55 | XMS REPORT ---
[...] Start Date End Date Status Dosage Lactulose [facility] 64540971080 10 GM/15ML Orally Jun 02, Active 30 ml TID 2018 Results No Known Results Summary Purpose eClinicalWorks Submission
--- OUTSIDE RECORDS SUMMARY | 2019-01-25 14:55 | XMS REPORT ---
[...] System Date Date Ondansetron HCl [facility] 14421401741 4 MG Orally Active 1 tablet every 6 hours as needed for nausea/vo miting Results No Known Results Summary Purpose [employer] Submission
--- OUTSIDE RECORDS SUMMARY | 2019-01-25 14:55 | XMS REPORT ---
:1965 Author Organization eClinicalWorks Care Team Providers Name Role Phone Carlos Payne Provider Role Unavailable Allergies No Known Allergies Problems Problem Type Condition Code Onset Dates Condition Status Problem Alcoholic cirrhosis of liver with K70.31 Active ascites Problem Ascites R18.8 Active Problem Anemia, chronic disease D63.8 Active Problem Vertebral compression fracture M48.50XA Active Problem History of alcohol abuse Z87.898 Active Problem Constipation, unspecified K59.00 Active constipation type Problem Thrombocytopenia D69.6 Active Problem Orthostatic hypotension I95.1 Active Problem Encephalopathy, hepatic K72.90 Active Problem Hypomagnesemia E83.42 Active Problem Chronic alcohol use F10.10 Active Problem Cirrhosis of liver K74.60 Active Assessment Constipation, unspecified K59.00 Active constipation type Problem Depression with anxiety F41.8 Active Problem GERD without esophagitis K21.9 Active Medications No Known Medications Results No Known Results Summary Purpose [employer] Submission
--- OUTSIDE RECORDS SUMMARY | 2019-01-25 14:55 | XMS REPORT ---
[...] Dosage System Date Date Ondansetron HCl [facility] 13365375822 4 MG Orally Active 1 tab every 8 hours as needed for Nausea and vomiting Ondansetron HCl ND 90632495243 4 MG Orally Active 1 tablet every 6 hours as needed for nausea/vom iting Citalopram [facility] 59461830585 10 MG Active TAKE ONE Hydrobromide DAILY Hydrocortisone ND 51217333269 20 MG Orally AM Active 1 tablet Once a day with food or milk Lactulose [facility] 22205485427 10 GM/15ML Active 15 ml Orally TID NuFera NDC 98449335324 - Orally once a Active 1 tab day Sodium Chloride [facility] 25694295026 1 GM Orally TID Active 2 tablets Ensure High [facility] 68581923887 - Orally every Oct 19, Active drink 320 Protein 4-6 hours 2018 ml Magnesium Oxide [facility] 08879664609 400 MG Orally Active 1 tablet BID as needed Hydrocortisone [facility] 91456345435 10 MG Orally PM Active 1 tablet Once a day with food or milk Ondansetron HCl [facility] 02028270430 4 MG Active 1 TAB EVERY 8 HOURS NEEDED FOR NAUSEA AND VOMITING ORALLY 10 DAYS Midodrine HCl [facility] 25657390544 10 MG Orally Active 1 tablet twice a day Ursodiol [facility] 83772772235 300 MG Orally Active not defined Rifaximin [facility] [address]-84 550 MG Orally Active 1 tablet Twice a day Citalopram [facility] 89900211952 40 MG Orally Active take one Hydrobromide once a day daily Pantoprazole [facility] 31454501549 40 MG Orally Active 1 tablet Sodium Once a day Results No Known Results Summary Purpose eClinicalWorks Submission
--- NOTE | 2019-01-25 15:33 | ER ---
Nurse's Notes [facility] Name: Abhishek Davis Age: 53 yrs Sex: Male : 1965 Arrival Date: 01/25/2019 Time: 13:21 Bed 13 Private MD: Diagnosis: Ascites Presentation: 01/25 13:21 Presenting complaint: EMS states: Pt from [facility], hx of alcoholic cirrhosis w/ ph ascites, has paracentesis are preformed regularly however due to an insurance issue pt is not covered for the procedure and abdomen has become very distended, pt denies pain but reports slight SOB, VSS w/ BP 110s/80s and HR 91 bpm. Transition of care: patient was not received from another setting of care. Onset of symptoms was January 25, 2019. Risk Assessment: Do you want to hurt yourself or someone else? Patient reports no desire to harm self or others. Initial Sepsis Screen: Does the patient meet any 2 criteria? No. Patient's initial sepsis screen is negative. Does the patient have a suspected source of infection? No. Patient's initial sepsis screen is negative. Care prior to arrival: None. 13:21 Method Of Arrival: EMS: [facility] 13:21 Acuity: KACEY 3 ph Triage Assessment: 14:28 General: Appears in no apparent distress. uncomfortable, Behavior is drowsy, listless. bp Pain: Complains of pain in abdomen. EENT: No deficits noted. Neuro: Level of Consciousness is lethargic. Cardiovascular: No deficits noted. Respiratory: Airway is patent Respiratory effort is even, unlabored, Respiratory pattern is regular, symmetrical. GI: Abdomen is noted to have ascites. : No signs and/or symptoms were reported regarding the genitourinary system. Derm: No deficits noted. Musculoskeletal: Circulation, motion, and sensation intact. Historical: - Allergies: 13:51 No Known Drug Allergies; ph - Home Meds: 13:51 hydroxyzine HCl 25 mg Oral tab PRN [Active]; Lactulose Oral 30 mL 3 times per day ph [Active]; midodrine 10 mg oral tab 1 tab 3 times per day [Active]; Centrum Oral daily [Active]; ondansetron HCl 4 mg Oral tab 1 tabs every 12 hours [Active]; pantoprazole 40 mg Oral TbEC 2 tabs once daily [Active]; Xifaxan 550 mg Oral tab 1 tab 2 times per day [Active]; ursodiol 300 mg Oral cap 1 cap 2 times per day [Active]; tramadol 50 mg Oral tab 1 tab every 6 hours [Active]; mirtazapine 7.5 mg Oral tab 1 tabs once daily [Active]; hydrocortisone 5 mg Oral tab 1 tab 2 times per day [Active]; ergocalciferol (vitamin D2) miscellaneous powd [Active]; Cipro 500 mg Oral tab 1 tab daily [Active]; - PMHx: 13:51 Anemia; Cirrhosis; renal insufficiency; Umbilical hernia; ph - Immunization history:: Adult Immunizations up to date. - Social history:: The patient lives in a alf, Smoking status: Patient/guardian denies using tobacco. - Ebola Screening: : Patient negative for fever greater than or equal to 101.5 degrees Fahrenheit, and additional compatible Ebola Virus Disease symptoms Patient denies exposure to infectious person Patient denies travel to an Ebola-affected area in the 21 days before illness onset No symptoms or risks identified at this time. Screenin:37 Abuse screen: Denies threats or abuse. Denies injuries from another. Nutritional bp screening: No deficits noted. Tuberculosis screening: No symptoms or risk factors identified. Fall Risk None identified. Assessment: 14:37 General: SEE TRIAGE NOTE. bp 15:00 GI: Bowel sounds diminished in abdomen diffusely Abd is rigid X 4 quads. bp 15:43 Reassessment: REPORT TO [facility]. TRANSPORT PENDING VIA [facility] [place]. 15:53 Reassessment: [facility] [place] AT B/S FOR TRANSPORT. PT SURESH. bp Vital Signs: 13:21 BP 115 / 96; Pulse 99; Resp 19; Temp 98.6(O); Pulse Ox 99% on R/A; Pain 0/10; dh3 15:30 BP 121 / 96; Pulse 80; Resp 16; Pulse Ox 99% ; bp ED Course: 13:21 Patient arrived in ED. ph 13:28 Triage completed. ph 14:27 Cash Torre, NIYA is Primary Nurse. bp 14:27 Arm band placed on. bp 14:35 Fernando Parson MD is Attending Physician. gs 14:37 Patient has correct armband on for positive identification. Bed in low position. Call bp light in reach. Side rails up X2. 15:44 No provider procedures requiring assistance completed. Patient did not have IV access bp during this emergency room visit. Administered Medications: No medications were administered Outcome: 15:32 Discharge ordered by . 15:54 Discharged to alf. Report called to LETTY NÚÑEZ bp 15:54 Condition: stable 15:54 Discharge instructions given to alf. 15:55 Patient left the ED. bp Signatures: Griselda Pandey, RN RN Sue Torres [facility] Fernando Parson MD MD gs Peltier, Brian, RN RN bp
--- NOTE | 2019-01-25 15:33 | EDPHYS ---
Physician Documentation [facility] Name: Abhishek Davis Age: 53 yrs Sex: Male : 1965 Arrival Date: 01/25/2019 Time: 13:21 Bed 13 Private MD: ED Physician Fernando Parson HPI: 01/25 15:14 This 53 yrs old Male presents to ER via EMS with complaints of Abdominal gs Swelling. 15:14 The patient presents with abdominal distention that is diffuse. Onset: The gs symptoms/episode began/occurred CHRONIC. Associated signs and symptoms: Pertinent negatives: nausea and vomiting, chest pain, constipation, fever. Modifying factors: The symptoms are alleviated by nothing, the symptoms are aggravated by nothing. Severity of pain:. The patient has experienced similar episodes in the past, chronically, PATIENT'S FACILITY SENT PT TO THE ED FOR PARACENTESIS BECAUSE HOSPITAL'S DAYS SURGERY DECLINED DUE TO INSURANCE. Historical: - Allergies: 13:51 No Known Drug Allergies; ph - Home Meds: 13:51 hydroxyzine HCl 25 mg Oral tab PRN [Active]; Lactulose Oral 30 mL 3 times per day ph [Active]; midodrine 10 mg oral tab 1 tab 3 times per day [Active]; Centrum Oral daily [Active]; ondansetron HCl 4 mg Oral tab 1 tabs every 12 hours [Active]; pantoprazole 40 mg Oral TbEC 2 tabs once daily [Active]; Xifaxan 550 mg Oral tab 1 tab 2 times per day [Active]; ursodiol 300 mg Oral cap 1 cap 2 times per day [Active]; tramadol 50 mg Oral tab 1 tab every 6 hours [Active]; mirtazapine 7.5 mg Oral tab 1 tabs once daily [Active]; hydrocortisone 5 mg Oral tab 1 tab 2 times per day [Active]; ergocalciferol (vitamin D2) miscellaneous powd [Active]; Cipro 500 mg Oral tab 1 tab daily [Active]; - PMHx: 13:51 Anemia; Cirrhosis; renal insufficiency; Umbilical hernia; ph - Immunization history:: Adult Immunizations up to date. - Social history:: The patient lives in a longterm, Smoking status: Patient/guardian denies using tobacco. - Ebola Screening: : Patient negative for fever greater than or equal to 101.5 degrees Fahrenheit, and additional compatible Ebola Virus Disease symptoms Patient denies exposure to infectious person Patient denies travel to an Ebola-affected area in the 21 days before illness onset No symptoms or risks identified at this time. ROS: 15:19 All other systems are negative. gs Exam: 15:19 Head/Face: Normocephalic, atraumatic. ENT: Nares patent. No nasal discharge, no gs septal abnormalities noted. Tympanic membranes are normal and external auditory canals are clear. Oropharynx with no redness, swelling, or masses, exudates, or evidence of obstruction, uvula midline. Mucous membranes moist. Cardiovascular: Regular rate and rhythm with a normal S1 and S2. No gallops, murmurs, or rubs. Normal PMI, no JVD. No pulse deficits. Respiratory: Lungs have equal breath sounds bilaterally, clear to auscultation and percussion. No rales, rhonchi or wheezes noted. No increased work of breathing, no retractions or nasal flaring. Back: No spinal tenderness. No costovertebral tenderness. Full range of motion. MS/ Extremity: Pulses equal, no cyanosis. Neurovascular intact. Full, normal range of motion. Neuro: Awake and alert, GCS 15, oriented to person, place, time, and situation. Cranial nerves II-XII grossly intact. Motor strength 5/5 in all extremities. Sensory grossly intact. Cerebellar exam normal. Normal gait. 15:19 Constitutional: The patient appears alert, awake. 15:19 Abdomen/GI: Inspection: distension, that is moderate, ASCITES DISTENDED NOT TO THE POINT NEEDING EMERGENT PARACENTESIS, NO SOB RESTING COMFORTABLY NO DISTRESS, GOOD SATS AND RESPIRATORY RATE, Palpation: abdomen is soft and non-tender, in all quadrants. Vital Signs: 13:21 BP 115 / 96; Pulse 99; Resp 19; Temp 98.6(O); Pulse Ox 99% on R/A; Pain 0/10; dh3 15:30 BP 121 / 96; Pulse 80; Resp 16; Pulse Ox 99% ; bp MDM: 15:13 Patient medically screened. gs 15:19 Data reviewed: vital signs, nurses notes, old medical records. gs Administered Medications: No medications were administered Disposition: 01/25/19 15:32 Discharged to Home. Impression: Ascites. - Condition is Stable. - Discharge Instructions: Ascites. - Medication Reconciliation Form, Thank You Letter, Antibiotic Education, Prescription Opioid Use form. - Follow up: Private Physician; When: 2 - 3 days; Reason: Re-evaluation by your physician. Signatures: Griselda Pandey, RN RN Fernando Parson MD MD Cash Torre RN RN bp Corrections: (The following items were deleted from the chart) 15:55 15:32 01/25/2019 15:32 Discharged to Home. Impression: Ascites. Condition is Stable. bp Forms are Medication Reconciliation Form, Thank You Letter, Antibiotic Education, Prescription Opioid Use. Follow up: Private Physician; When: 2 - 3 days; Reason: Re-evaluation by your physician. gs
[2019-01-25 16:47] VITALS: TEMP 98.6; O2SAT 99
[2019-01-25 16:49] VITALS: BP 121/96
== END 2019-01-25 15:55 | disposition home or self-care (01) ==
LOC: ER 13:17
DX: R18.8 Other ascites (principal); D64.9 Anemia, unspecified; N28.9 Disorder of kidney and ureter, unspecified; K74.60 Unspecified cirrhosis of liver
CPT/HCPCS: 99283

== ENCOUNTER 2019-02-01 17:49 | Emergency (ER) | payer MEDICAID ==
[2019-02-01 18:15] LABS: Absolute Lymphocytes (CBC) 0.2 K/uL (0.7-4.9); Absolute Monocytes 0.8 K/uL (0.1-1.3); Absolute Neutrophil 13.7 K/uL (1.8-8.0); Basophils % 0.2 % (0-1.3); Eosinophils % 0.1 % (0-4.4); Hematocrit 31.2 % (39.6-49.0); Lymphocytes % 1.5 % (15.3-44.8); MPV 8.4 fL (7.6-11.3); Monocytes % 5.5 % (3.3-12.3); RBC Red Blood Cell Count 3.13 M/uL (4.33-5.43)
--- OUTSIDE RECORDS SUMMARY | 2019-02-01 18:18 | XMS REPORT ---
:1965 [facility] Organization [facility] Address [address] [place] [address] Dr. Lant[address]ua [address] [place] [id number] Care Team Providers Name Role Phone [place] [...] TOTAL PROTEIN (BEAKER) (test 5.2 gm/dL 6.0-8.3 nyvj=312) ALBUMIN (BEAKER) (test 3.4 g/dL 3.5-5.0 hdll=7330) ALKALINE PHOSPHATASE 76 U/L 40-150 (BEAKER) (test zhrb=434) BILIRUBIN TOTAL (BEAKER) 2.4 mg/dL 0.2-1.2 (test ucte=805) SODIUM (BEAKER) (test 128 meq/L 136-145 ltso=787) POTASSIUM (BEAKER) (test 4.2 meq/L 3.5-5.1 ovsn=589) CHLORIDE (BEAKER) (test 100 meq/L 98-107 klwt=126) CO2 (BEAKER) (test rvan=094) 22 meq/L 22-29 BLOOD UREA NITROGEN (BEAKER) 41 mg/dL 7-21 (test pewc=552) CREATININE (BEAKER) (test 1.51 mg/dL 0.57-1.25 terr=837) GLUCOSE RANDOM (BEAKER) 174 mg/dL 70-105 (test swgp=727) CALCIUM (BEAKER) (test 9.7 mg/dL 8.4-10.2 oydc=280) AST (SGOT) (BEAKER) (test 12 U/L 5-34 leqf=353) ALT (SGPT) (BEAKER) (test 11 U/L 6-55 kpcg=312) EGFR (BEAKER) (test 49 mL/min/1.73 sq m ESTIMATED GFR IS NOT wamq=5246) ACCURATE CREATININE CLEARANCE IN PREDICTING GLOMERULAR FILTRATION RATE. ESTIMATED GFR IS NOT APPLICABLE FOR DIALYSIS PATIENTS. Specimen slightly ictericBODY FLUID CULTURE + GRAM [id number] 08:52:00 Test Item Value Reference Range Comments CULTURE (BEAKER) (test qqxd=6248) No growth GRAM STAIN RESULT (BEAKER) (test 1+ White blood cells seen xnvp=9263) GRAM STAIN RESULT (BEAKER) (test No organisms seen vnvj=67816) [id number] 06:29:00 Test Item Value Reference Range Comments MAGNESIUM (BEAKER) (test yleq=727) 2.1 mg/dL 1.6-2.6 COMPREHENSIVE METABOLIC [id number] 06:29:00 Test Item Value Reference Range Comments TOTAL PROTEIN (BEAKER) 5.4 gm/dL 6.0-8.3 (test etfg=351) ALBUMIN (BEAKER) (test 3.6 g/dL 3.5-5.0 yhpp=1320) ALKALINE PHOSPHATASE 79 U/L 40-150 (BEAKER) (test xuon=253) BILIRUBIN TOTAL (BEAKER) 2.3 mg/dL 0.2-1.2 (test czck=331) SODIUM (BEAKER) (test 128 meq/L 136-145 pbqm=188) POTASSIUM (BEAKER) (test 4.4 meq/L 3.5-5.1 tegx=944) CHLORIDE (BEAKER) (test 100 meq/L 98-107 rwwf=471) CO2 (BEAKER) (test 21 meq/L 22-29 qapq=043) BLOOD UREA NITROGEN 38 mg/dL 7-21 (BEAKER) (test ziuf=042) CREATININE (BEAKER) (test 1.48 mg/dL 0.57-1.25 wlfq=365) GLUCOSE RANDOM (BEAKER) 166 mg/dL 70-105 (test qbmt=166) CALCIUM (BEAKER) (test 10.1 mg/dL 8.4-10.2 amkf=207) AST (SGOT) (BEAKER) (test 13 U/L 5-34 vubl=116) ALT (SGPT) (BEAKER) (test 14 U/L 6-55 xscr=358) EGFR (BEAKER) (test 50 mL/min/1.73 sq m ESTIMATED GFR IS NOT lmjb=0563) ACCURATE CREATININE CLEARANCE IN PREDICTING GLOMERULAR FILTRATION RATE. ESTIMATED GFR IS NOT APPLICABLE FOR DIALYSIS PATIENTS. CALCIUM, [id number] 05:54:00 Test Item Value Reference Range Comments CALCIUM IONIZED (BEAKER) (test xuok=417) 1.23 mmol/L 1.12-1.27 PH, BLOOD (BEAKER) (test xmlj=2883) 7.51 URINE PROTEIN ELECTROPHORESIS, [id number] 10:35:00 Test Item Value Reference Range Comments PROTEIN, URINE (BEAKER) (test < mg/dL 0-14 duhs=1008) ALBUMIN URINE ELP (BEAKER) 19.7 % (test phkv=9001) GAMMA GLOBULIN URINE (BEAKER) 80.3 % (test hihc=5714) UPEP, ID-438 (BEAKER) (test goyq=5902) HQYH-ZDHYUYBQQSH-587 (BEAKER) Kulwinder Mueller M.D. (test oceo=0179) (electonic signature) Normal urine protein electrophoresisOSMOLALITY, [id number] 08:24:00 Test Item Value Reference Range Comments OSMOLALITY URINE (BEAKER) (test wjnu=426) 565 mOsm/kg 40-1,400 SODIUM, RANDOM [id number] 07:54:00 Test Item Value Reference Range Comments SODIUM URINE (BEAKER) (test owwi=060) < meq/L Reference Range: No NormalsCREATININE, RANDOM [id number] 07:53:00 Test Item Value Reference Range Comments CREATININE URINE (BEAKER) (test hdsn=159) 92.2 mg/dL Reference Range: No NormalsPROTEIN, RANDOM [id number] 07:53:00 Test Item Value Reference Range Comments PROTEIN, URINE (BEAKER) (test vowr=8888) 12 mg/dL 0-14 URINALYSIS W/ [id number] 07:52:00 Test Item Value Reference Range Comments COLOR (BEAKER) (test wieh=790) Yellow CLARITY (BEAKER) (test rawj=456) Hazy SPECIFIC GRAVITY UA (BEAKER) (test avwf=846) 1.019 1.001-1.035 PH UA (BEAKER) (test smga=643) 6.0 5.0-8.0 PROTEIN UA (BEAKER) (test cbva=736) 10 mg/dL Negative GLUCOSE UA (BEAKER) (test bwmh=154) Negative Negative KETONES UA (BEAKER) (test kwwf=008) Negative Negative BILIRUBIN UA (BEAKER) (test usvz=988) Negative Negative BLOOD UA (BEAKER) (test stxp=413) Negative Negative NITRITE UA (BEAKER) (test xayu=245) Negative Negative LEUKOCYTE ESTERASE UA (BEAKER) (test acjx=149) Large Negative UROBILINOGEN UA (BEAKER) (test zjwg=628) 0.2 mg/dL 0.2-1.0 RBC UA (BEAKER) (test uwnv=192) 3 /HPF WBC UA (BEAKER) (test khka=475) 16 /HPF SQUAMOUS EPITHELIAL (BEAKER) (test hqdt=090) < /HPF HYALINE CASTS (BEAKER) (test jusk=228) 4 /LPF SOURCE(BEAKER) (test welo=7527) SODIUM, RANDOM [id number] 07:48:00 Test Item Value Reference Range Comments SODIUM URINE (BEAKER) (test owsq=654) < meq/L Reference Range: No NormalsEOSINOPHIL SMEAR, [id number] 07:44:00 Test Item Value Reference Range Comments EOSINOPHIL SMEAR, URINE (BEAKER) (test No EOS seen No EOS seen oqmt=1880) CBC W/PLT COUNT & AUTO [id number] 06:39:00 Test Item Value Reference Range Comments WHITE BLOOD CELL COUNT (BEAKER) (test zpds=741) 6.4 K/ L 3.5-10.5 RED BLOOD CELL COUNT (BEAKER) (test bobg=119) 2.57 M/ L 4.63-6.08 HEMOGLOBIN (BEAKER) (test hemd=190) 8.8 GM/DL 13.7-17.5 HEMATOCRIT (BEAKER) (test pohd=293) 25.6 % 40.1-51.0 MEAN CORPUSCULAR VOLUME (BEAKER) (test lnmx=257) 99.6 fL 79.0-92.2 MEAN CORPUSCULAR HEMOGLOBIN (BEAKER) (test 34.2 pg 25.7-32.2 wrsb=938) MEAN CORPUSCULAR HEMOGLOBIN CONC (BEAKER) (test 34.4 GM/DL 32.3-36.5 loed=995) RED CELL DISTRIBUTION WIDTH (BEAKER) (test 17.6 % 11.6-14.4 yjnq=468) PLATELET COUNT (BEAKER) (test ltat=665) 54 K/CU MM 150-450 MEAN PLATELET VOLUME (BEAKER) (test xroq=641) 9.6 fL 9.4-12.4 NUCLEATED RED BLOOD CELLS (BEAKER) (test 0 /100 WBC 0-0 vhms=452) NEUTROPHILS RELATIVE PERCENT (BEAKER) (test 87 % fzfy=546) LYMPHOCYTES RELATIVE PERCENT (BEAKER) (test 4 % wohz=418) MONOCYTES RELATIVE PERCENT (BEAKER) (test 8 % ivuo=260) EOSINOPHILS RELATIVE PERCENT (BEAKER) (test 0 % jbxx=031) BASOPHILS RELATIVE PERCENT (BEAKER) (test 0 % zbag=621) NEUTROPHILS ABSOLUTE COUNT (BEAKER) (test 5.54 K/ L 1.78-5.38 tfqs=685) LYMPHOCYTES ABSOLUTE COUNT (BEAKER) (test 0.25 K/ L 1.32-3.57 rqqf=330) MONOCYTES ABSOLUTE COUNT (BEAKER) (test fksc=409) 0.53 K/ L 0.30-0.82 EOSINOPHILS ABSOLUTE COUNT (BEAKER) (test 0.00 K/ L 0.04-0.54 wdzu=074) BASOPHILS ABSOLUTE COUNT (BEAKER) (test jekh=621) 0.01 K/ L 0.01-0.08 IMMATURE GRANULOCYTES-RELATIVE PERCENT (BEAKER) 1 % 0-1 (test fhvs=7524) [id number] 06:09:00 Test Item Value Reference Range Comments PHOSPHORUS (BEAKER) (test qmuq=453) 2.9 mg/dL 2.3-4.7 [id number] 06:09:00 Test Item Value Reference Range Comments MAGNESIUM (BEAKER) (test zmbv=554) 2.1 mg/dL 1.6-2.6 COMPREHENSIVE METABOLIC [id number] 06:09:00 Test Item Value Reference Range Comments TOTAL PROTEIN (BEAKER) 5.5 gm/dL 6.0-8.3 (test kfvd=427) ALBUMIN (BEAKER) (test 3.8 g/dL 3.5-5.0 fnoq=7792) ALKALINE PHOSPHATASE 83 U/L 40-150 (BEAKER) (test tvfv=393) BILIRUBIN TOTAL (BEAKER) 2.2 mg/dL 0.2-1.2 (test piho=891) SODIUM (BEAKER) (test 126 meq/L 136-145 sids=028) POTASSIUM (BEAKER) (test 4.1 meq/L 3.5-5.1 eake=386) CHLORIDE (BEAKER) (test 100 meq/L 98-107 mcwf=529) CO2 (BEAKER) (test 19 meq/L 22-29 olsf=037) BLOOD UREA NITROGEN 36 mg/dL 7-21 (BEAKER) (test qmdd=899) CREATININE (BEAKER) (test 1.55 mg/dL 0.57-1.25 wznc=053) GLUCOSE RANDOM (BEAKER) 180 mg/dL 70-105 (test hhec=999) CALCIUM (BEAKER) (test 10.0 mg/dL 8.4-10.2 tufw=145) AST (SGOT) (BEAKER) (test 13 U/L 5-34 yhrg=358) ALT (SGPT) (BEAKER) (test 13 U/L 6-55 obtn=389) EGFR (BEAKER) (test 47 mL/min/1.73 sq m ESTIMATED GFR IS NOT dcnw=7631) ACCURATE CREATININE CLEARANCE IN PREDICTING GLOMERULAR FILTRATION RATE. ESTIMATED GFR IS NOT APPLICABLE FOR DIALYSIS PATIENTS. Specimen slightly ictericPROTHROMBIN [id number] 06:01:00 Test Item Value Reference Range Comments PROTIME (BEAKER) (test yfnp=366) 21.9 seconds 11.7-14.7 INR (BEAKER) (test hsqg=620) 1.9 <=5.9 RECOMMENDED COUMADIN/WARFARIN INR THERAPY RANGESSTANDARD DOSE: 2.0 - 3.0 Includes: PROPHYLAXIS forvenous thrombosis, systemic embolization; TREATMENT for venous thrombosis and/or pulmonary embolus.HIGH RISK: Target INR is 2.5-3.5 for patients with mechanical heart valves.CALCIUM, [id number] 05:30:00 Test Item Value Reference Range Comments CALCIUM IONIZED (BEAKER) (test mjfe=821) 1.25 mmol/L 1.12-1.27 PH, BLOOD (BEAKER) (test yfqt=6325) 7.45 BASIC METABOLIC [id number] 18:06:00 Test Item Value Reference Range Comments SODIUM (BEAKER) (test 130 meq/L 136-145 mhwp=298) POTASSIUM (BEAKER) (test 4.4 meq/L 3.5-5.1 tmuh=171) CHLORIDE (BEAKER) (test 100 meq/L 98-107 fxsi=767) CO2 (BEAKER) (test 22 meq/L 22-29 ohqr=563) BLOOD UREA NITROGEN 38 mg/dL 7-21 (BEAKER) (test rrgo=749) CREATININE (BEAKER) (test 1.67 mg/dL 0.57-1.25 lggk=401) GLUCOSE RANDOM (BEAKER) 199 mg/dL 70-105 (test jzln=390) CALCIUM (BEAKER) (test 10.8 mg/dL 8.4-10.2 vewe=890) EGFR (BEAKER) (test 43 mL/min/1.73 sq m ESTIMATED GFR IS NOT hlhh=3501) ACCURATE CREATININE CLEARANCE IN PREDICTING GLOMERULAR FILTRATION RATE. ESTIMATED GFR IS NOT APPLICABLE FOR DIALYSIS PATIENTS. [id number] 17:59:00 Test Item Value Reference Range Comments AMMONIA (BEAKER) (test jvpx=317) 71 mol/L 18-72 CALCIUM, [id number] 06:28:00 Test Item Value Reference Range Comments CALCIUM IONIZED (BEAKER) (test lrfw=182) 1.24 mmol/L 1.12-1.27 PH, BLOOD (BEAKER) (test mlnx=0578) 7.49 [id number] 05:39:00 Test Item Value Reference Range Comments PHOSPHORUS (BEAKER) (test djxi=653) 2.2 mg/dL 2.3-4.7 [id number] 05:39:00 Test Item Value Reference Range Comments MAGNESIUM (BEAKER) (test ayrr=500) 1.9 mg/dL 1.6-2.6 COMPREHENSIVE METABOLIC [id number] 05:39:00 Test Item Value Reference Range Comments TOTAL PROTEIN (BEAKER) 5.7 gm/dL 6.0-8.3 (test jepf=667) ALBUMIN (BEAKER) (test 4.1 g/dL 3.5-5.0 zbmr=3171) ALKALINE PHOSPHATASE 85 U/L 40-150 (BEAKER) (test wrtd=615) BILIRUBIN TOTAL (BEAKER) 2.0 mg/dL 0.2-1.2 (test dexg=008) SODIUM (BEAKER) (test 125 meq/L 136-145 tycw=878) POTASSIUM (BEAKER) (test 4.1 meq/L 3.5-5.1 uggw=804) CHLORIDE (BEAKER) (test 98 meq/L 98-107 wexv=274) CO2 (BEAKER) (test 20 meq/L 22-29 epku=917) BLOOD UREA NITROGEN 38 mg/dL 7-21 (BEAKER) (test udxy=405) CREATININE (BEAKER) (test 1.72 mg/dL 0.57-1.25 ymsz=163) GLUCOSE RANDOM (BEAKER) 193 mg/dL 70-105 (test yqdc=317) CALCIUM (BEAKER) (test 10.1 mg/dL 8.4-10.2 bfru=195) AST (SGOT) (BEAKER) (test 13 U/L 5-34 edqx=000) ALT (SGPT) (BEAKER) (test 12 U/L 6-55 dilh=253) EGFR (BEAKER) (test 42 mL/min/1.73 sq m ESTIMATED GFR IS NOT ydyq=4833) ACCURATE CREATININE CLEARANCE IN PREDICTING GLOMERULAR FILTRATION RATE. ESTIMATED GFR IS NOT APPLICABLE FOR DIALYSIS PATIENTS. CBC W/PLT COUNT & AUTO [id number] 05:11:00 Test Item Value Reference Range Comments WHITE BLOOD CELL COUNT (BEAKER) (test uebh=896) 4.9 K/ L 3.5-10.5 RED BLOOD CELL COUNT (BEAKER) (test ihwg=683) 2.36 M/ L 4.63-6.08 HEMOGLOBIN (BEAKER) (test bfci=594) 7.9 GM/DL 13.7-17.5 HEMATOCRIT (BEAKER) (test fqgu=512) 23.0 % 40.1-51.0 MEAN CORPUSCULAR VOLUME (BEAKER) (test aqic=080) 97.5 fL 79.0-92.2 MEAN CORPUSCULAR HEMOGLOBIN (BEAKER) (test 33.5 pg 25.7-32.2 nwsq=312) MEAN CORPUSCULAR HEMOGLOBIN CONC (BEAKER) (test 34.3 GM/DL 32.3-36.5 rlbp=686) RED CELL DISTRIBUTION WIDTH (BEAKER) (test 17.3 % 11.6-14.4 ojjc=856) PLATELET COUNT (BEAKER) (test aquo=857) 45 K/CU MM 150-450 MEAN PLATELET VOLUME (BEAKER) (test fbat=378) 10.0 fL 9.4-12.4 NUCLEATED RED BLOOD CELLS (BEAKER) (test 0 /100 WBC 0-0 hprp=059) NEUTROPHILS RELATIVE PERCENT (BEAKER) (test 87 % ckju=211) LYMPHOCYTES RELATIVE PERCENT (BEAKER) (test 4 % zftz=373) MONOCYTES RELATIVE PERCENT (BEAKER) (test 8 % wkni=961) EOSINOPHILS RELATIVE PERCENT (BEAKER) (test 0 % nmrh=880) BASOPHILS RELATIVE PERCENT (BEAKER) (test 0 % dcyh=988) NEUTROPHILS ABSOLUTE COUNT (BEAKER) (test 4.27 K/ L 1.78-5.38 ypxu=116) LYMPHOCYTES ABSOLUTE COUNT (BEAKER) (test 0.19 K/ L 1.32-3.57 ovyk=867) MONOCYTES ABSOLUTE COUNT (BEAKER) (test vhkr=489) 0.41 K/ L 0.30-0.82 EOSINOPHILS ABSOLUTE COUNT (BEAKER) (test 0.00 K/ L 0.04-0.54 oivd=045) BASOPHILS ABSOLUTE COUNT (BEAKER) (test nkql=517) 0.00 K/ L 0.01-0.08 IMMATURE GRANULOCYTES-RELATIVE PERCENT (BEAKER) 1 % 0-1 (test qixu=5858) PTH, [id number] 05:00:00 Test Item Value Reference Range Comments PARATHYROID HORMONE INTACT (BEAKER) (test 28.0 pg/mL 8.5-72.5 euzv=615) PROTHROMBIN TIME/[id number] 04:48:00 Test Item Value Reference Range Comments PROTIME (BEAKER) (test iduc=487) 22.6 seconds 11.7-14.7 INR (BEAKER) (test wwek=034) 2.0 <=5.9 RECOMMENDED COUMADIN/WARFARIN INR THERAPY RANGESSTANDARD DOSE: 2.0 - 3.0 Includes: PROPHYLAXIS forvenous thrombosis, systemic embolization; TREATMENT for venous thrombosis and/or pulmonary embolus.HIGH RISK: Target INR is 2.5-3.5 for patients with mechanical heart valves.BODY FLUID CELL COUNT WITH [id number] 21:53:00 Test Item Value Reference Range Comments APPEARANCE FLUID (BEAKER) (test witu=341) Cloudy Clear COLOR FLUID (BEAKER) (test qkuj=942) Jenna Colorless, Straw RBC FLUID (BEAKER) (test idts=677) 5467 /cu mm <=1 ADJUSTED WBC FLUID (BEAKER) (test dhrg=0782) 66 /cu mm <=5 LINING CELLS (BEAKER) (test kcgc=6625) 0 /cu mm <=1 NEUTROPHILS FLUID (BEAKER) (test jeyt=7886) 41 % LYMPHS FLUID (BEAKER) (test gawh=879) 10 % MONO/MACROPHAGE FLUID (BEAKER) (test xyro=574) 48 % EOSINOPHILS FLUID (BEAKER) (test vigx=487) 1 % BASO FLUID (BEAKER) (test wnoa=288) 0 % CONTAINER BODY FLUID (BEAKER) (test thqu=6258) EDTA Tube CT, BRAIN, WITHOUT [id number] 18:15:00FINAL REPORT CT, BRAIN, WITHOUT CONTRAST INDICATION: [...] MDReport Verified Date/Time: 12/24/2018 18:15:07 Reading Location: [facility] Radiology Reading Room U/S, [id number] 17: 50:00Reason for exam:->ascitesShould this be performed [...] manner.After local anesthesia is achieved, a 5 Algerian catheter is advanced into the peritoneal cavity. Approximately 2250 cc of serosanguineous fluid is drained, without immediate complications. Fluid is sent for analysis. Patient Disposition: The patient is discharged from the ultrasound department after the paracentesis, in good condition. Impression: Successful and uncomplicated ultrasound guided paracentesis is performed. Signed : Corinne Mott Verified Date/Time: 12/24/2018 17:50:42 Reading Location: [facility] B1 [id number] Ultrasound Reading Room Electronically signed by: CORINNE MOTT M.D.on 12/24/2018 05:50 PMBODY FLUID CULTURE + GRAM [id number] 10:02:00 Test Item Value Reference Range Comments CULTURE (BEAKER) (test zcie=9587) No growth GRAM STAIN RESULT (BEAKER) (test <1+ WBCs uakh=4512) GRAM STAIN RESULT (BEAKER) (test No organisms seen hnsm=84636) CALCIUM, [id number] 07:41:00 Test Item Value Reference Range Comments CALCIUM IONIZED (BEAKER) (test hlkg=834) 1.26 mmol/L 1.12-1.27 PH, BLOOD (BEAKER) (test irgd=8414) 7.47 [id number] 07:08:00 Test Item Value Reference Range Comments PHOSPHORUS (BEAKER) (test truv=375) 2.5 mg/dL 2.3-4.7 [id number] 07:08:00 Test Item Value Reference Range Comments MAGNESIUM (BEAKER) (test czbx=021) 2.0 mg/dL 1.6-2.6 COMPREHENSIVE METABOLIC [id number] 07:08:00 Test Item Value Reference Range Comments TOTAL PROTEIN (BEAKER) 5.3 gm/dL 6.0-8.3 (test qgbs=463) ALBUMIN (BEAKER) (test 3.7 g/dL 3.5-5.0 vmfk=8965) ALKALINE PHOSPHATASE 84 U/L 40-150 (BEAKER) (test kayg=919) BILIRUBIN TOTAL (BEAKER) 2.0 mg/dL 0.2-1.2 (test aphe=242) SODIUM (BEAKER) (test 128 meq/L 136-145 uhei=779) POTASSIUM (BEAKER) (test 4.0 meq/L 3.5-5.1 tawo=327) CHLORIDE (BEAKER) (test 101 meq/L 98-107 wjrn=306) CO2 (BEAKER) (test 20 meq/L 22-29 fkqc=521) BLOOD UREA NITROGEN 37 mg/dL 7-21 (BEAKER) (test cbct=950) CREATININE (BEAKER) (test 1.60 mg/dL 0.57-1.25 iwio=432) GLUCOSE RANDOM (BEAKER) 141 mg/dL 70-105 (test tpfa=796) CALCIUM (BEAKER) (test 10.0 mg/dL 8.4-10.2 ljgw=820) AST (SGOT) (BEAKER) (test 12 U/L 5-34 cdpk=971) ALT (SGPT) (BEAKER) (test 13 U/L 6-55 hpau=126) EGFR (BEAKER) (test 45 mL/min/1.73 sq m ESTIMATED GFR IS NOT ymqh=5356) ACCURATE CREATININE CLEARANCE IN PREDICTING GLOMERULAR FILTRATION RATE. ESTIMATED GFR IS NOT APPLICABLE FOR DIALYSIS PATIENTS. PROTHROMBIN [id number] 06:59:00 Test Item Value Reference Range Comments PROTIME (BEAKER) (test qwzm=615) 21.6 seconds 11.7-14.7 INR (BEAKER) (test kyyt=553) 1.8 <=5.9 RECOMMENDED COUMADIN/WARFARIN INR THERAPY RANGESSTANDARD DOSE: 2.0 - 3.0 Includes: PROPHYLAXIS forvenous thrombosis, systemic embolization; TREATMENT for venous thrombosis and/or pulmonary embolus.HIGH RISK: Target INR is 2.5-3.5 for patients with mechanical heart valves.CBC W/PLT COUNT & AUTO [id number] 06:49:00 Test Item Value Reference Range Comments WHITE BLOOD CELL COUNT (BEAKER) (test uppe=900) 4.9 K/ L 3.5-10.5 RED BLOOD CELL COUNT (BEAKER) (test nfqz=106) 2.41 M/ L 4.63-6.08 HEMOGLOBIN (BEAKER) (test uvao=406) 8.0 GM/DL 13.7-17.5 HEMATOCRIT (BEAKER) (test xpjg=137) 23.8 % 40.1-51.0 MEAN CORPUSCULAR VOLUME (BEAKER) (test beje=277) 98.8 fL 79.0-92.2 MEAN CORPUSCULAR HEMOGLOBIN (BEAKER) (test 33.2 pg 25.7-32.2 ngir=251) MEAN CORPUSCULAR HEMOGLOBIN CONC (BEAKER) (test 33.6 GM/DL 32.3-36.5 rpkb=919) RED CELL DISTRIBUTION WIDTH (BEAKER) (test 17.2 % 11.6-14.4 jzsa=073) PLATELET COUNT (BEAKER) (test chuy=795) 44 K/CU MM 150-450 MEAN PLATELET VOLUME (BEAKER) (test lahe=876) 10.4 fL 9.4-12.4 NUCLEATED RED BLOOD CELLS (BEAKER) (test 0 /100 WBC 0-0 mzhe=574) NEUTROPHILS RELATIVE PERCENT (BEAKER) (test 84 % kxlh=768) LYMPHOCYTES RELATIVE PERCENT (BEAKER) (test 5 % bgfj=552) MONOCYTES RELATIVE PERCENT (BEAKER) (test 10 % skij=900) EOSINOPHILS RELATIVE PERCENT (BEAKER) (test 0 % dhwi=988) BASOPHILS RELATIVE PERCENT (BEAKER) (test 0 % kjpc=292) NEUTROPHILS ABSOLUTE COUNT (BEAKER) (test 4.12 K/ L 1.78-5.38 osfk=454) LYMPHOCYTES ABSOLUTE COUNT (BEAKER) (test 0.26 K/ L 1.32-3.57 zfzl=380) MONOCYTES ABSOLUTE COUNT (BEAKER) (test cgxa=913) 0.50 K/ L 0.30-0.82 EOSINOPHILS ABSOLUTE COUNT (BEAKER) (test 0.01 K/ L 0.04-0.54 ufdj=652) BASOPHILS ABSOLUTE COUNT (BEAKER) (test flrl=079) 0.00 K/ L 0.01-0.08 IMMATURE GRANULOCYTES-RELATIVE PERCENT (BEAKER) 1 % 0-1 (test dfev=7989) BLOOD [id number] 01:00:00 Test Item Value Reference Range Comments CULTURE (BEAKER) (test jeob=6307) No growth in 5 days BLOOD [id number] 01:00:00 Test Item Value Reference Range Comments CULTURE (BEAKER) (test xkrc=1317) No growth in 5 days CBC W/PLT COUNT & AUTO [id number] 04:57:00 Test Item Value Reference Range Comments WHITE BLOOD CELL COUNT (BEAKER) (test fptg=152) 4.7 K/ L 3.5-10.5 RED BLOOD CELL COUNT (BEAKER) (test yuul=203) 2.35 M/ L 4.63-6.08 HEMOGLOBIN (BEAKER) (test zonf=609) 7.9 GM/DL 13.7-17.5 HEMATOCRIT (BEAKER) (test seqk=989) 23.4 % 40.1-51.0 MEAN CORPUSCULAR VOLUME (BEAKER) (test pelk=402) 99.6 fL 79.0-92.2 MEAN CORPUSCULAR HEMOGLOBIN (BEAKER) (test 33.6 pg 25.7-32.2 fjdo=563) MEAN CORPUSCULAR HEMOGLOBIN CONC (BEAKER) (test 33.8 GM/DL 32.3-36.5 cdyj=485) RED CELL DISTRIBUTION WIDTH (BEAKER) (test 17.4 % 11.6-14.4 cjwe=035) PLATELET COUNT (BEAKER) (test zgcn=472) 36 K/CU MM 150-450 MEAN PLATELET VOLUME (BEAKER) (test iisp=697) 10.5 fL 9.4-12.4 NUCLEATED RED BLOOD CELLS (BEAKER) (test 0 /100 WBC 0-0 znwl=160) NEUTROPHILS RELATIVE PERCENT (BEAKER) (test 84 % tipl=986) LYMPHOCYTES RELATIVE PERCENT (BEAKER) (test 4 % tyep=424) MONOCYTES RELATIVE PERCENT (BEAKER) (test 11 % uhno=020) EOSINOPHILS RELATIVE PERCENT (BEAKER) (test 0 % nlbw=532) BASOPHILS RELATIVE PERCENT (BEAKER) (test 0 % axhi=697) NEUTROPHILS ABSOLUTE COUNT (BEAKER) (test 3.97 K/ L 1.78-5.38 yhef=708) LYMPHOCYTES ABSOLUTE COUNT (BEAKER) (test 0.20 K/ L 1.32-3.57 xgju=509) MONOCYTES ABSOLUTE COUNT (BEAKER) (test opxk=586) 0.53 K/ L 0.30-0.82 EOSINOPHILS ABSOLUTE COUNT (BEAKER) (test 0.00 K/ L 0.04-0.54 prtm=631) BASOPHILS ABSOLUTE COUNT (BEAKER) (test pitt=685) 0.00 K/ L 0.01-0.08 IMMATURE GRANULOCYTES-RELATIVE PERCENT (BEAKER) 1 % 0-1 (test odgh=0007) CALCIUM, [id number] 04:48:00 Test Item Value Reference Range Comments CALCIUM IONIZED (BEAKER) (test lpvk=883) 1.33 mmol/L 1.12-1.27 PH, BLOOD (BEAKER) (test yqbn=4341) 7.36 [id number] 04:41:00 Test Item Value Reference Range Comments PHOSPHORUS (BEAKER) (test aduh=171) 2.4 mg/dL 2.3-4.7 [id number] 04:41:00 Test Item Value Reference Range Comments MAGNESIUM (BEAKER) (test trrn=436) 2.0 mg/dL 1.6-2.6 COMPREHENSIVE METABOLIC [id number] 04:41:00 Test Item Value Reference Range Comments TOTAL PROTEIN (BEAKER) 5.5 gm/dL 6.0-8.3 (test mywr=651) ALBUMIN (BEAKER) (test 4.0 g/dL 3.5-5.0 anah=8809) ALKALINE PHOSPHATASE 79 U/L 40-150 (BEAKER) (test klds=988) BILIRUBIN TOTAL (BEAKER) 1.9 mg/dL 0.2-1.2 (test zmry=619) SODIUM (BEAKER) (test 128 meq/L 136-145 zsdf=288) POTASSIUM (BEAKER) (test 4.3 meq/L 3.5-5.1 atqz=920) CHLORIDE (BEAKER) (test 102 meq/L 98-107 ksvr=812) CO2 (BEAKER) (test 19 meq/L 22-29 cwjr=475) BLOOD UREA NITROGEN 37 mg/dL 7-21 (BEAKER) (test sjvy=601) CREATININE (BEAKER) (test 1.77 mg/dL 0.57-1.25 tmfx=292) GLUCOSE RANDOM (BEAKER) 150 mg/dL 70-105 (test obui=534) CALCIUM (BEAKER) (test 10.2 mg/dL 8.4-10.2 iwpf=736) AST (SGOT) (BEAKER) (test 12 U/L 5-34 gkky=688) ALT (SGPT) (BEAKER) (test 11 U/L 6-55 muhd=698) EGFR (BEAKER) (test 40 mL/min/1.73 sq m ESTIMATED GFR IS NOT ezgz=7991) ACCURATE CREATININE CLEARANCE IN PREDICTING GLOMERULAR FILTRATION RATE. ESTIMATED GFR IS NOT APPLICABLE FOR DIALYSIS PATIENTS. PROTHROMBIN [id number] 04:29:00 Test Item Value Reference Range Comments PROTIME (BEAKER) (test tdrc=495) 22.2 seconds 11.7-14.7 INR (BEAKER) (test wpvb=132) 1.9 <=5.9 RECOMMENDED COUMADIN/WARFARIN INR THERAPY RANGESSTANDARD DOSE: 2.0 - 3.0 Includes: PROPHYLAXIS forvenous thrombosis, systemic embolization; TREATMENT for venous thrombosis and/or pulmonary embolus.HIGH RISK: Target INR is 2.5-3.5 for patients with mechanical heart valves.CALCIUM, [id number] 05:49:00 Test Item Value Reference Range Comments CALCIUM IONIZED (BEAKER) (test prrm=959) 1.33 mmol/L 1.12-1.27 PH, BLOOD (BEAKER) (test dfrt=6778) 7.30 PROTHROMBIN [id number] 05:40:00 Test Item Value Reference Range Comments PROTIME (BEAKER) (test owfw=584) 22.7 seconds 11.7-14.7 INR (BEAKER) (test vjik=160) 2.0 <=5.9 RECOMMENDED COUMADIN/WARFARIN INR THERAPY RANGESSTANDARD DOSE: 2.0 - 3.0 Includes: PROPHYLAXIS forvenous thrombosis, systemic embolization; TREATMENT for venous thrombosis and/or pulmonary embolus.HIGH RISK: Target INR is 2.5-3.5 for patients with mechanical heart valves.[id number] 05:20:00 Test Item Value Reference Range Comments PHOSPHORUS (BEAKER) (test zgqi=283) 2.4 mg/dL 2.3-4.7 [id number] 05:20:00 Test Item Value Reference Range Comments MAGNESIUM (BEAKER) (test zttk=552) 2.3 mg/dL 1.6-2.6 COMPREHENSIVE METABOLIC [id number] 05:20:00 Test Item Value Reference Range Comments TOTAL PROTEIN (BEAKER) 5.5 gm/dL 6.0-8.3 (test qful=617) ALBUMIN (BEAKER) (test 3.8 g/dL 3.5-5.0 sgda=4564) ALKALINE PHOSPHATASE 84 U/L 40-150 (BEAKER) (test jcbj=373) BILIRUBIN TOTAL (BEAKER) 1.9 mg/dL 0.2-1.2 (test xzlc=090) SODIUM (BEAKER) (test 129 meq/L 136-145 sclr=594) POTASSIUM (BEAKER) (test 4.8 meq/L 3.5-5.1 sici=197) CHLORIDE (BEAKER) (test 103 meq/L 98-107 gbza=560) CO2 (BEAKER) (test 20 meq/L 22-29 ljol=228) BLOOD UREA NITROGEN 41 mg/dL 7-21 (BEAKER) (test qsff=043) CREATININE (BEAKER) (test 1.66 mg/dL 0.57-1.25 devh=151) GLUCOSE RANDOM (BEAKER) 139 mg/dL 70-105 (test wmzv=471) CALCIUM (BEAKER) (test 10.0 mg/dL 8.4-10.2 sxkv=011) AST (SGOT) (BEAKER) (test 11 U/L 5-34 oqmf=193) ALT (SGPT) (BEAKER) (test 13 U/L 6-55 hjti=758) EGFR (BEAKER) (test 44 mL/min/1.73 sq m ESTIMATED GFR IS NOT hsyf=6204) ACCURATE CREATININE CLEARANCE IN PREDICTING GLOMERULAR FILTRATION RATE. ESTIMATED GFR IS NOT APPLICABLE FOR DIALYSIS PATIENTS. [id number] 05:09:00 Test Item Value Reference Range Comments AMMONIA (BEAKER) (test pjrd=590) 73 mol/L 18-72 CBC W/PLT COUNT & AUTO [id number] 04:58:00 Test Item Value Reference Range Comments WHITE BLOOD CELL COUNT (BEAKER) (test pgvb=737) 5.0 K/ L 3.5-10.5 RED BLOOD CELL COUNT (BEAKER) (test euwe=985) 2.41 M/ L 4.63-6.08 HEMOGLOBIN (BEAKER) (test wrsq=386) 8.1 GM/DL 13.7-17.5 HEMATOCRIT (BEAKER) (test ixzz=317) 24.3 % 40.1-51.0 MEAN CORPUSCULAR VOLUME (BEAKER) (test gdui=836) 100.8 fL 79.0-92.2 MEAN CORPUSCULAR HEMOGLOBIN (BEAKER) (test 33.6 pg 25.7-32.2 sjns=528) MEAN CORPUSCULAR HEMOGLOBIN CONC (BEAKER) (test 33.3 GM/DL 32.3-36.5 azag=607) RED CELL DISTRIBUTION WIDTH (BEAKER) (test 17.2 % 11.6-14.4 qisn=719) PLATELET COUNT (BEAKER) (test eopz=489) 33 K/CU MM 150-450 MEAN PLATELET VOLUME (BEAKER) (test nikq=689) 10.0 fL 9.4-12.4 NUCLEATED RED BLOOD CELLS (BEAKER) (test 0 /100 WBC 0-0 vvdu=559) NEUTROPHILS RELATIVE PERCENT (BEAKER) (test 81 % qcjr=724) LYMPHOCYTES RELATIVE PERCENT (BEAKER) (test 6 % cjmj=800) MONOCYTES RELATIVE PERCENT (BEAKER) (test 13 % fxic=263) EOSINOPHILS RELATIVE PERCENT (BEAKER) (test 0 % hqiv=745) BASOPHILS RELATIVE PERCENT (BEAKER) (test 0 % rttk=673) NEUTROPHILS ABSOLUTE COUNT (BEAKER) (test 4.02 K/ L 1.78-5.38 uuus=690) LYMPHOCYTES ABSOLUTE COUNT (BEAKER) (test 0.28 K/ L 1.32-3.57 ficu=184) MONOCYTES ABSOLUTE COUNT (BEAKER) (test koat=451) 0.65 K/ L 0.30-0.82 EOSINOPHILS ABSOLUTE COUNT (BEAKER) (test 0.01 K/ L 0.04-0.54 tfol=510) BASOPHILS ABSOLUTE COUNT (BEAKER) (test cqoo=580) 0.00 K/ L 0.01-0.08 IMMATURE GRANULOCYTES-RELATIVE PERCENT (BEAKER) 0 % 0-1 (test accx=0743) [id number] 22:53:00Medical Cytology Report Case: [id number] Authorizing Provider: Fer Castellanos Collected: 12/18/2018 1349 Felton Liu MD OrderingLocation: [address] Received: 2018 0954 Service Pathologist: Mata Pickard MD Specimen: Peritoneal Fluid PERITONEAL FLUID (CYTOSPINS) : - NEGATIVE FOR MALIGNANCY ACUTE INFLAMMATION PRESENT Signing Pathologist Direct Phone Line: [phone] signed by Mata Pickard MD on 12/21/2018 at 10:53 [id number], cirrhosisPERITONEAL [id number] mls yellow; 4 cytospinsCollected: [id number]: [id number].[facility], [facility] of [facility]ology, [address] [place] [address], [facility], [address] [place] [address], [facility], Department of [facility]ology, [address] [place] [address], MREE FLUID CELL COUNT WITH [id number] 19:53:00 Test Item Value Reference Range Comments APPEARANCE FLUID (BEAKER) (test ctpi=690) Hazy Clear COLOR FLUID (BEAKER) (test ninc=887) Straw Colorless, Straw RBC FLUID (BEAKER) (test fbvo=591) 290 /cu mm <=1 ADJUSTED WBC FLUID (BEAKER) (test jxas=9462) 118 /cu mm <=5 LINING CELLS (BEAKER) (test bgsb=4179) 2 /cu mm <=1 NEUTROPHILS FLUID (BEAKER) (test snkg=6049) 45 % LYMPHS FLUID (BEAKER) (test mkfs=018) 11 % MONO/MACROPHAGE FLUID (BEAKER) (test yxmt=036) 44 % EOSINOPHILS FLUID (BEAKER) (test xglb=801) 0 % BASO FLUID (BEAKER) (test izfe=702) 0 % CONTAINER BODY FLUID (BEAKER) (test abyp=1509) EDTA Tube PROTEIN ELECTROPHORESIS, [id number] 17:38:00 Test Item Value Reference Range Comments ALBUMIN FRACTION (BEAKER) 3.4 g/dL 3.5-5.5 (test wloc=761) ALPHA 1 FRACTION (BEAKER) 0.1 g/dL 0.2-0.4 (test kqri=027) ALPHA 2 FRACTION (BEAKER) 0.4 g/dL 0.5-0.9 (test frvw=524) BETA FRACTION (BEAKER) (test 0.4 g/dL 0.6-1.1 hbhu=429) GAMMA GLOBULIN FRACTION 0.7 g/dL 0.7-1.7 (BEAKER) (test ismj=641) INTERPRETATION-119 (BEAKER) Mild decrease in globulin alpha (test gpue=5760) and beta globulin fractions in a nonspecific pattern. No monoclonal bands detected. [id number] (BEAKER) Traci Royal MD (test kpdw=8086) (electronic signature) PROTEIN TOTAL SERUM, SPEP 5.1 gm/dL 6.0-8.3 (BEAKER) (test cqkj=4118) U/S, [id number] 17:24:00Reason for exam:->ascitesShould this be performed at [...] Verified Date/Time: 12/21 17:24:34 Reading Location: [facility] [id number] Ultrasound Reading Room BODY FLUID CULTURE + GRAM [id number] 14:03:00 Test Item Value Reference Range Comments CULTURE (BEAKER) (test vcty=4820) No growth GRAM STAIN RESULT (BEAKER) (test 2+ WBCs ajcd=4496) GRAM STAIN RESULT (BEAKER) (test No organisms seen mhoe=64945) CALCIUM, [id number] 07:16:00 Test Item Value Reference Range Comments CALCIUM IONIZED (BEAKER) (test ovqm=783) 1.23 mmol/L 1.12-1.27 PH, BLOOD (BEAKER) (test serj=4109) 7.46 [id number] 05:27:00 Test Item Value Reference Range Comments PHOSPHORUS (BEAKER) (test qhjb=172) 2.6 mg/dL 2.3-4.7 [id number] 05:27:00 Test Item Value Reference Range Comments MAGNESIUM (BEAKER) (test wluq=942) 2.2 mg/dL 1.6-2.6 COMPREHENSIVE METABOLIC [id number] 05:27:00 Test Item Value Reference Range Comments TOTAL PROTEIN (BEAKER) 5.1 gm/dL 6.0-8.3 (test beag=642) ALBUMIN (BEAKER) (test 3.3 g/dL 3.5-5.0 jvma=9184) ALKALINE PHOSPHATASE 84 U/L 40-150 (BEAKER) (test wkgz=008) BILIRUBIN TOTAL (BEAKER) 2.1 mg/dL 0.2-1.2 (test nhsi=464) SODIUM (BEAKER) (test 128 meq/L 136-145 qllt=046) POTASSIUM (BEAKER) (test 4.2 meq/L 3.5-5.1 zxtx=670) CHLORIDE (BEAKER) (test 103 meq/L 98-107 lpgn=323) CO2 (BEAKER) (test 19 meq/L 22-29 bufp=423) BLOOD UREA NITROGEN 48 mg/dL 7-21 (BEAKER) (test hmxv=444) CREATININE (BEAKER) (test 1.58 mg/dL 0.57-1.25 pjjl=033) GLUCOSE RANDOM (BEAKER) 132 mg/dL 70-105 (test ccnf=566) CALCIUM (BEAKER) (test 10.0 mg/dL 8.4-10.2 bhxr=544) AST (SGOT) (BEAKER) (test 14 U/L 5-34 rcqr=571) ALT (SGPT) (BEAKER) (test 14 U/L 6-55 cllj=499) EGFR (BEAKER) (test 46 mL/min/1.73 sq m ESTIMATED GFR IS NOT xncu=6252) ACCURATE CREATININE CLEARANCE IN PREDICTING GLOMERULAR FILTRATION RATE. ESTIMATED GFR IS NOT APPLICABLE FOR DIALYSIS PATIENTS. PROTHROMBIN [id number] 05:15:00 Test Item Value Reference Range Comments PROTIME (BEAKER) (test zqgt=056) 21.5 seconds 11.7-14.7 INR (BEAKER) (test aoyp=355) 1.9 <=5.9 RECOMMENDED COUMADIN/WARFARIN INR THERAPY RANGESSTANDARD DOSE: 2.0 - 3.0 Includes: PROPHYLAXIS forvenous thrombosis, systemic embolization; TREATMENT for venous thrombosis and/or pulmonary embolus.HIGH RISK: Target INR is 2.5-3.5 for patients with mechanical heart valves.CBC W/PLT COUNT & AUTO [id number] 05:06:00 Test Item Value Reference Range Comments WHITE BLOOD CELL COUNT (BEAKER) (test ynoa=526) 5.1 K/ L 3.5-10.5 RED BLOOD CELL COUNT (BEAKER) (test xxbw=087) 2.34 M/ L 4.63-6.08 HEMOGLOBIN (BEAKER) (test fldl=250) 7.9 GM/DL 13.7-17.5 HEMATOCRIT (BEAKER) (test nnxt=833) 22.8 % 40.1-51.0 MEAN CORPUSCULAR VOLUME (BEAKER) (test tuya=235) 97.4 fL 79.0-92.2 MEAN CORPUSCULAR HEMOGLOBIN (BEAKER) (test 33.8 pg 25.7-32.2 dwnd=974) MEAN CORPUSCULAR HEMOGLOBIN CONC (BEAKER) (test 34.6 GM/DL 32.3-36.5 lcfj=522) RED CELL DISTRIBUTION WIDTH (BEAKER) (test 17.7 % 11.6-14.4 elua=825) PLATELET COUNT (BEAKER) (test qmgb=162) 37 K/CU MM 150-450 MEAN PLATELET VOLUME (BEAKER) (test zwml=055) 10.0 fL 9.4-12.4 NUCLEATED RED BLOOD CELLS (BEAKER) (test 0 /100 WBC 0-0 ufzk=467) NEUTROPHILS RELATIVE PERCENT (BEAKER) (test 79 % zkue=327) LYMPHOCYTES RELATIVE PERCENT (BEAKER) (test 6 % hqcp=538) MONOCYTES RELATIVE PERCENT (BEAKER) (test 15 % kzub=084) EOSINOPHILS RELATIVE PERCENT (BEAKER) (test 0 % cfva=025) BASOPHILS RELATIVE PERCENT (BEAKER) (test 0 % elxo=724) NEUTROPHILS ABSOLUTE COUNT (BEAKER) (test 4.04 K/ L 1.78-5.38 pagt=859) LYMPHOCYTES ABSOLUTE COUNT (BEAKER) (test 0.29 K/ L 1.32-3.57 vfim=322) MONOCYTES ABSOLUTE COUNT (BEAKER) (test kdiz=686) 0.77 K/ L 0.30-0.82 EOSINOPHILS ABSOLUTE COUNT (BEAKER) (test 0.02 K/ L 0.04-0.54 yuuy=035) BASOPHILS ABSOLUTE COUNT (BEAKER) (test hbnh=560) 0.00 K/ L 0.01-0.08 IMMATURE GRANULOCYTES-RELATIVE PERCENT (BEAKER) 0 % 0-1 (test prvr=9401) VITAMIN D, [id number] 08:24:00 Test Item Value Reference Range Comments VITAMIN D 25-OH (BEAKER) (test eaxt=9591) 5.2 ng/mL 6.6-49.9 Effective 08/06/2017: Reference Range ChangeNew: 6.6-49.9 ng/mL Previous: 13.0 -47.8 ng/mLRecommended Vitamin D Target Range: 30.0-40.0 ng/mLT4, [id number] 08:19:00 Test Item Value Reference Range Comments FREE T4 (BEAKER) (test bwnp=003) 0.69 ng/dL 0.70-1.48 TSH/FREE T4 IF [id number] 07:46:00 Test Item Value Reference Range Comments THYROID STIMULATING HORMONE (BEAKER) (test 0.18 uIU/mL 0.35-4.94 hlod=884) CALCIUM, [id number] 07:25:00 Test Item Value Reference Range Comments CALCIUM IONIZED (BEAKER) (test hipm=979) 1.29 mmol/L 1.12-1.27 PH, BLOOD (BEAKER) (test qaiz=9202) 7.44 PTH, [id number] 07:25:00 Test Item Value Reference Range Comments PARATHYROID HORMONE INTACT (BEAKER) (test 25.4 pg/mL 8.5-72.5 tlru=455) [id number] 07:22:00 Test Item Value Reference Range Comments PHOSPHORUS (BEAKER) (test kvnn=669) 2.6 mg/dL 2.3-4.7 [id number] 07:22:00 Test Item Value Reference Range Comments MAGNESIUM (BEAKER) (test agmh=388) 2.3 mg/dL 1.6-2.6 COMPREHENSIVE METABOLIC [id number] 07:22:00 Test Item Value Reference Range Comments TOTAL PROTEIN (BEAKER) 5.2 gm/dL 6.0-8.3 (test xzce=064) ALBUMIN (BEAKER) (test 3.5 g/dL 3.5-5.0 kuke=0097) ALKALINE PHOSPHATASE 85 U/L 40-150 (BEAKER) (test fhja=264) BILIRUBIN TOTAL (BEAKER) 1.9 mg/dL 0.2-1.2 (test ckxg=036) SODIUM (BEAKER) (test 127 meq/L 136-145 bsba=644) POTASSIUM (BEAKER) (test 4.2 meq/L 3.5-5.1 mmcm=920) CHLORIDE (BEAKER) (test 101 meq/L 98-107 qpqd=683) CO2 (BEAKER) (test 19 meq/L 22-29 gqtz=048) BLOOD UREA NITROGEN 51 mg/dL 7-21 (BEAKER) (test eqcx=637) CREATININE (BEAKER) (test 1.62 mg/dL 0.57-1.25 bdle=191) GLUCOSE RANDOM (BEAKER) 124 mg/dL 70-105 (test htww=282) CALCIUM (BEAKER) (test 10.3 mg/dL 8.4-10.2 pzax=745) AST (SGOT) (BEAKER) (test 13 U/L 5-34 aiyo=564) ALT (SGPT) (BEAKER) (test 14 U/L 6-55 xfnk=803) EGFR (BEAKER) (test 45 mL/min/1.73 sq m ESTIMATED GFR IS NOT udim=0597) ACCURATE CREATININE CLEARANCE IN PREDICTING GLOMERULAR FILTRATION RATE. ESTIMATED GFR IS NOT APPLICABLE FOR DIALYSIS PATIENTS. PROTHROMBIN TIME/[id number] 07:20:00 Test Item Value Reference Range Comments PROTIME (BEAKER) (test krye=705) 22.2 seconds 11.7-14.7 INR (BEAKER) (test errt=650) 2.0 <=5.9 RECOMMENDED COUMADIN/WARFARIN INR THERAPY RANGESSTANDARD DOSE: 2.0 - 3.0 Includes: PROPHYLAXIS forvenous thrombosis, systemic embolization; TREATMENT for venous thrombosis and/or pulmonary embolus.HIGH RISK: Target INR is 2.5-3.5 for patients with mechanical heart valves.CBC W/PLT COUNT & AUTO [id number] 07:12:00 Test Item Value Reference Range Comments WHITE BLOOD CELL COUNT (BEAKER) (test ldsf=232) 4.9 K/ L 3.5-10.5 RED BLOOD CELL COUNT (BEAKER) (test iyki=381) 2.32 M/ L 4.63-6.08 HEMOGLOBIN (BEAKER) (test bnoh=060) 7.8 GM/DL 13.7-17.5 HEMATOCRIT (BEAKER) (test mtad=528) 23.1 % 40.1-51.0 MEAN CORPUSCULAR VOLUME (BEAKER) (test wqtp=362) 99.6 fL 79.0-92.2 MEAN CORPUSCULAR HEMOGLOBIN (BEAKER) (test 33.6 pg 25.7-32.2 gami=670) MEAN CORPUSCULAR HEMOGLOBIN CONC (BEAKER) (test 33.8 GM/DL 32.3-36.5 inzo=737) RED CELL DISTRIBUTION WIDTH (BEAKER) (test 18.1 % 11.6-14.4 ihjc=342) PLATELET COUNT (BEAKER) (test gmtv=676) 31 K/CU MM 150-450 MEAN PLATELET VOLUME (BEAKER) (test feem=531) 10.8 fL 9.4-12.4 NUCLEATED RED BLOOD CELLS (BEAKER) (test 0 /100 WBC 0-0 hxys=996) NEUTROPHILS RELATIVE PERCENT (BEAKER) (test 83 % joer=039) LYMPHOCYTES RELATIVE PERCENT (BEAKER) (test 4 % fxtp=838) MONOCYTES RELATIVE PERCENT (BEAKER) (test 12 % drhr=633) EOSINOPHILS RELATIVE PERCENT (BEAKER) (test 0 % zfce=164) BASOPHILS RELATIVE PERCENT (BEAKER) (test 0 % nhuj=820) NEUTROPHILS ABSOLUTE COUNT (BEAKER) (test 4.03 K/ L 1.78-5.38 zmhi=694) LYMPHOCYTES ABSOLUTE COUNT (BEAKER) (test 0.21 K/ L 1.32-3.57 lwus=136) MONOCYTES ABSOLUTE COUNT (BEAKER) (test luja=258) 0.59 K/ L 0.30-0.82 EOSINOPHILS ABSOLUTE COUNT (BEAKER) (test 0.00 K/ L 0.04-0.54 eceh=471) BASOPHILS ABSOLUTE COUNT (BEAKER) (test fuzb=500) 0.00 K/ L 0.01-0.08 IMMATURE GRANULOCYTES-RELATIVE PERCENT (BEAKER) 1 % 0-1 (test plzb=6738) CBC W/PLT COUNT & AUTO [id number] 08:27:00 Test Item Value Reference Range Comments WHITE BLOOD CELL COUNT (BEAKER) (test dexm=395) 6.7 K/ L 3.5-10.5 RED BLOOD CELL COUNT (BEAKER) (test pobg=236) 2.52 M/ L 4.63-6.08 HEMOGLOBIN (BEAKER) (test xnqo=627) 8.4 GM/DL 13.7-17.5 HEMATOCRIT (BEAKER) (test qckj=235) 25.6 % 40.1-51.0 MEAN CORPUSCULAR VOLUME (BEAKER) (test ptsn=123) 101.6 fL 79.0-92.2 MEAN CORPUSCULAR HEMOGLOBIN (BEAKER) (test 33.3 pg 25.7-32.2 ftpv=965) MEAN CORPUSCULAR HEMOGLOBIN CONC (BEAKER) (test 32.8 GM/DL 32.3-36.5 outv=281) RED CELL DISTRIBUTION WIDTH (BEAKER) (test 18.8 % 11.6-14.4 qnlw=180) PLATELET COUNT (BEAKER) (test eass=163) 38 K/CU MM 150-450 MEAN PLATELET VOLUME (BEAKER) (test uekt=684) 10.2 fL 9.4-12.4 NUCLEATED RED BLOOD CELLS (BEAKER) (test 0 /100 WBC 0-0 vrzl=330) NEUTROPHILS RELATIVE PERCENT (BEAKER) (test 83 % uatm=822) LYMPHOCYTES RELATIVE PERCENT (BEAKER) (test 4 % uthv=478) MONOCYTES RELATIVE PERCENT (BEAKER) (test 13 % bxjp=064) EOSINOPHILS RELATIVE PERCENT (BEAKER) (test 0 % ihne=198) BASOPHILS RELATIVE PERCENT (BEAKER) (test 0 % llaq=214) NEUTROPHILS ABSOLUTE COUNT (BEAKER) (test 5.58 K/ L 1.78-5.38 tszz=514) LYMPHOCYTES ABSOLUTE COUNT (BEAKER) (test 0.24 K/ L 1.32-3.57 zuuz=731) MONOCYTES ABSOLUTE COUNT (BEAKER) (test mced=273) 0.85 K/ L 0.30-0.82 EOSINOPHILS ABSOLUTE COUNT (BEAKER) (test 0.00 K/ L 0.04-0.54 cyjn=877) BASOPHILS ABSOLUTE COUNT (BEAKER) (test knoq=743) 0.01 K/ L 0.01-0.08 IMMATURE GRANULOCYTES-RELATIVE PERCENT (BEAKER) 1 % 0-1 (test yjwx=9839) [id number] 08:04:00 Test Item Value Reference Range Comments PREALBUMIN (BEAKER) (test konz=572) 5 mg/dL 14-45 [id number] 07:59:00 Test Item Value Reference Range Comments PHOSPHORUS (BEAKER) (test epzj=603) 3.3 mg/dL 2.3-4.7 [id number] 07:59:00 Test Item Value Reference Range Comments MAGNESIUM (BEAKER) (test xncf=173) 2.5 mg/dL 1.6-2.6 COMPREHENSIVE METABOLIC [id number] 07:59:00 Test Item Value Reference Range Comments TOTAL PROTEIN (BEAKER) 5.3 gm/dL 6.0-8.3 (test xedn=919) ALBUMIN (BEAKER) (test 3.3 g/dL 3.5-5.0 yiak=1795) ALKALINE PHOSPHATASE 101 U/L 40-150 (BEAKER) (test wzgu=655) BILIRUBIN TOTAL (BEAKER) 1.9 mg/dL 0.2-1.2 (test xebc=575) SODIUM (BEAKER) (test 127 meq/L 136-145 fuys=436) POTASSIUM (BEAKER) (test 4.6 meq/L 3.5-5.1 wyup=414) CHLORIDE (BEAKER) (test 101 meq/L 98-107 tqef=786) CO2 (BEAKER) (test 20 meq/L 22-29 bumq=334) BLOOD UREA NITROGEN 52 mg/dL 7-21 (BEAKER) (test ckil=962) CREATININE (BEAKER) (test 1.82 mg/dL 0.57-1.25 ewrd=409) GLUCOSE RANDOM (BEAKER) 115 mg/dL 70-105 (test cqan=005) CALCIUM (BEAKER) (test 10.2 mg/dL 8.4-10.2 nipu=901) AST (SGOT) (BEAKER) (test 16 U/L 5-34 dlsq=752) ALT (SGPT) (BEAKER) (test 16 U/L 6-55 fihs=074) EGFR (BEAKER) (test 39 mL/min/1.73 sq m ESTIMATED GFR IS NOT ufll=0663) ACCURATE CREATININE CLEARANCE IN PREDICTING GLOMERULAR FILTRATION RATE. ESTIMATED GFR IS NOT APPLICABLE FOR DIALYSIS PATIENTS. PROTHROMBIN TIME/[id number] 07:47:00 Test Item Value Reference Range Comments PROTIME (BEAKER) (test ruid=117) 23.9 seconds 11.7-14.7 INR (BEAKER) (test qgbd=353) 2.1 <=5.9 RECOMMENDED COUMADIN/WARFARIN INR THERAPY RANGESSTANDARD DOSE: 2.0 - 3.0 Includes: PROPHYLAXIS forvenous thrombosis, systemic embolization; TREATMENT for venous thrombosis and/or pulmonary embolus.HIGH RISK: Target INR is 2.5-3.5 for patients with mechanical heart valves.CALCIUM, [id number] 06:39:00 Test Item Value Reference Range Comments CALCIUM IONIZED (BEAKER) (test fobh=143) 1.31 mmol/L 1.12-1.27 PH, BLOOD (BEAKER) (test dfnq=8519) 7.39 OSMOLALITY, [id number] 21:37:00 Test Item Value Reference Range Comments OSMOLALITY URINE (BEAKER) (test kzaj=839) 545 mOsm/kg 40-1,400 SODIUM, RANDOM [id number] 21:29:00 Test Item Value Reference Range Comments SODIUM URINE (BEAKER) (test tcqd=859) < meq/L Reference Range: No NormalsCREATININE, RANDOM [id number] 21:28:00 Test Item Value Reference Range Comments CREATININE URINE (BEAKER) (test cznh=939) 104.9 mg/dL Reference Range: No NormalsPROTEIN, RANDOM [id number] 21:28:00 Test Item Value Reference Range Comments PROTEIN, URINE (BEAKER) (test rlbs=5620) 9 mg/dL 0-14 URINALYSIS W/ REFLEX URINE [id number] 21:22:00 Test Item Value Reference Range Comments COLOR (BEAKER) (test iqkc=886) Yellow CLARITY (BEAKER) (test ohir=773) Clear SPECIFIC GRAVITY UA (BEAKER) (test zdrm=437) 1.016 1.001-1.035 PH UA (BEAKER) (test eibu=160) 5.5 5.0-8.0 PROTEIN UA (BEAKER) (test xare=856) Negative Negative GLUCOSE UA (BEAKER) (test bvwt=426) Negative Negative KETONES UA (BEAKER) (test jadj=030) Negative Negative BILIRUBIN UA (BEAKER) (test fbwg=032) Negative Negative BLOOD UA (BEAKER) (test ehwn=802) Negative Negative NITRITE UA (BEAKER) (test bgxb=225) Negative Negative LEUKOCYTE ESTERASE UA (BEAKER) (test vitn=281) Negative Negative UROBILINOGEN UA (BEAKER) (test cqmn=570) 0.2 mg/dL 0.2-1.0 RBC UA (BEAKER) (test usyz=971) 1 /HPF WBC UA (BEAKER) (test kmbr=221) 2 /HPF BACTERIA (BEAKER) (test cflb=840) Rare SQUAMOUS EPITHELIAL (BEAKER) (test akze=640) < /HPF HYALINE CASTS (BEAKER) (test kovr=099) 10 /LPF CRYSTALS, URINE (BEAKER) (test lbgv=4886) Rare SOURCE(BEAKER) (test dftj=7790) U/S, RENAL, [id number] 20:01:00Reason for exam:->AKIFINAL REPORT TECHNIQUE: Grayscale ultrasound [...] Verified Date/Time: 12/18/2018 20: 01:21 Reading Location: [address] Consult Reading Room [id number] 18:04:00 Test Item Value Reference Range Comments AMMONIA (BEAKER) (test sobo=075) 53 mol/L 18-72 U/S, [id number] 15:47:00Please send ascitic fluid for Albumin, protein, [...] skin and deep soft tissues. A 5 Algerian one-step catheter was inserted and removed from the peritoneal space and approximately 6.5 liters of cloudy yellow fluid was aspirated from the abdomen. Specimens were collected for the lab. There were no immediate complications. Impression: Successful ultrasound guided paracentesis with aspiration of 6.5 liters of fluid. Signed: Reece Haque MDReport Verified Date/Time: 12/18/2018 15:47:45 Reading Location: [facility] [id number] Ultrasound Reading Room BODY FLUID CELL COUNT WITH [id number] 15:43 :00 Test Item Value Reference Range Comments APPEARANCE FLUID (BEAKER) (test fjht=673) Slightly Cloudy Clear COLOR FLUID (BEAKER) (test jikg=922) Yellow Colorless, Straw RBC FLUID (BEAKER) (test fcgt=990) 280 /cu mm <=1 ADJUSTED WBC FLUID (BEAKER) (test 2020 /cu mm <=5 xhad=5735) LINING CELLS (BEAKER) (test imui=5973) 0 /cu mm <=1 NEUTROPHILS FLUID (BEAKER) (test zzqh=2588) 91 % LYMPHS FLUID (BEAKER) (test dtrv=633) 3 % MONO/MACROPHAGE FLUID (BEAKER) (test 6 % ppyp=976) EOSINOPHILS FLUID (BEAKER) (test fbah=813) 0 % BASO FLUID (BEAKER) (test ipgt=907) 0 % CONTAINER BODY FLUID (BEAKER) (test EDTA Tube lvxx=8358) PROTEIN, BODY [id number] 15:23:00 Test Item Value Reference Range Comments PROTEIN FLUID (BEAKER) (test ohgz=534) 0.8 g/dL Absence of reference range indicates that normals have not been defined.Assay performance has not been validated for this type of specimen.ALBUMIN, BODY [id number] 15:23:00 Test Item Value Reference Range Comments ALBUMIN FLUID (BEAKER) (test lthl=815) 0.5 gm/dL Reference Range: No Normals Assay performance has not been validated for this type of specimen.RAD, ABDOMEN/KUB, 1 VIEW [id number] 15:05:00Reason for exam:- >Abdominal distension with periumbilical [...] MDReport Verified Date/Time: 12/18 15:05:12 Reading Location: [facility] Radiology Reading Room [id number] 07: 04:00 Test Item Value Reference Range Comments PARTIAL THROMBOPLASTIN TIME (BEAKER) (test 46.6 seconds 22.5-36.0 yllk=668) [id number] 05:56:00 Test Item Value Reference Range Comments MAGNESIUM (BEAKER) (test ryoa=853) 2.3 mg/dL 1.6-2.6 BASIC METABOLIC [id number] 05:56:00 Test Item Value Reference Range Comments SODIUM (BEAKER) (test 131 meq/L 136-145 sgyc=370) POTASSIUM (BEAKER) (test 4.9 meq/L 3.5-5.1 aegj=191) CHLORIDE (BEAKER) (test 104 meq/L 98-107 mlrp=021) CO2 (BEAKER) (test 20 meq/L 22-29 uvto=358) BLOOD UREA NITROGEN 50 mg/dL 7-21 (BEAKER) (test dlaf=875) CREATININE (BEAKER) (test 1.81 mg/dL 0.57-1.25 dpgu=486) GLUCOSE RANDOM (BEAKER) 127 mg/dL 70-105 (test haxf=554) CALCIUM (BEAKER) (test 9.8 mg/dL 8.4-10.2 cpdf=190) EGFR (BEAKER) (test 39 mL/min/1.73 sq m ESTIMATED GFR IS NOT zchn=1499) ACCURATE CREATININE CLEARANCE IN PREDICTING GLOMERULAR FILTRATION RATE. ESTIMATED GFR IS NOT APPLICABLE FOR DIALYSIS PATIENTS. Specimen slightly ictericHEPATIC FUNCTION [id number] 05:56:00 Test Item Value Reference Range Comments TOTAL PROTEIN (BEAKER) (test nvgj=757) 5.2 gm/dL 6.0-8.3 ALBUMIN (BEAKER) (test kwmr=1449) 3.1 g/dL 3.5-5.0 BILIRUBIN TOTAL (BEAKER) (test ieqk=144) 2.3 mg/dL 0.2-1.2 BILIRUBIN DIRECT (BEAKER) (test njva=663) 1.3 mg/dL 0.1-0.5 ALKALINE PHOSPHATASE (BEAKER) (test hkxs=938) 111 U/L 40-150 AST (SGOT) (BEAKER) (test umow=090) 22 U/L 5-34 ALT (SGPT) (BEAKER) (test yoyx=154) 22 U/L 6-55 Specimen slightly ictericPROTHROMBIN TIME/[id number] 05:29:00 Test Item Value Reference Range Comments PROTIME (BEAKER) (test bgrk=925) 25.8 seconds 11.7-14.7 INR (BEAKER) (test afpq=520) 2.3 <=5.9 RECOMMENDED COUMADIN/WARFARIN INR THERAPY RANGESSTANDARD DOSE: 2.0 - 3.0 Includes: PROPHYLAXIS forvenous thrombosis, systemic embolization; TREATMENT for venous thrombosis and/or pulmonary embolus.HIGH RISK: Target INR is 2.5-3.5 for patients with mechanical heart valves.CBC (HEMOGRAM ONLY)2018-12-18 05:16:00 Test Item Value Reference Range Comments WHITE BLOOD CELL COUNT (BEAKER) (test dohs=577) 8.6 K/ L 3.5-10.5 RED BLOOD CELL COUNT (BEAKER) (test evtv=025) 2.74 M/ L 4.63-6.08 HEMOGLOBIN (BEAKER) (test srbp=791) 9.4 GM/DL 13.7-17.5 HEMATOCRIT (BEAKER) (test jfag=301) 28.0 % 40.1-51.0 MEAN CORPUSCULAR VOLUME (BEAKER) (test ygwl=561) 102.2 fL 79.0-92.2 MEAN CORPUSCULAR HEMOGLOBIN (BEAKER) (test 34.3 pg 25.7-32.2 gecz=077) MEAN CORPUSCULAR HEMOGLOBIN CONC (BEAKER) (test 33.6 GM/DL 32.3-36.5 jdha=929) RED CELL DISTRIBUTION WIDTH (BEAKER) (test 19.8 % 11.6-14.4 mqaq=708) PLATELET COUNT (BEAKER) (test fltj=768) 45 K/CU MM 150-450 MEAN PLATELET VOLUME (BEAKER) (test qinq=537) 9.7 fL 9.4-12.4 NUCLEATED RED BLOOD CELLS (BEAKER) (test 0 /100 WBC 0-0 oabt=264) BLOOD [id number] 19:00:00 Test Item Value Reference Range Comments CULTURE (BEAKER) (test cgmy=8694) No growth in 5 days BLOOD [id number] 19:00:00 Test Item Value Reference Range Comments CULTURE (BEAKER) (test ryso=7557) No growth in 5 days MISCELLANEOUS LAB [id number] 09:42:00 Test Item Value Reference Range Comments SCAN RESULT (test bcss=[id number]) [id number] 07:24:00 Test Item Value Reference Range Comments MAGNESIUM (BEAKER) (test dwtz=466) 2.2 mg/dL 1.6-2.6 BASIC METABOLIC [id number] 07:24:00 Test Item Value Reference Range Comments SODIUM (BEAKER) (test 130 meq/L 136-145 exbd=828) POTASSIUM (BEAKER) (test 4.0 meq/L 3.5-5.1 gkdt=452) CHLORIDE (BEAKER) (test 102 meq/L 98-107 msaf=346) CO2 (BEAKER) (test 22 meq/L 22-29 bvho=925) BLOOD UREA NITROGEN 45 mg/dL 7-21 (BEAKER) (test jywt=421) CREATININE (BEAKER) (test 1.42 mg/dL 0.57-1.25 nxoc=569) GLUCOSE RANDOM (BEAKER) 138 mg/dL 70-105 (test ainq=139) CALCIUM (BEAKER) (test 10.0 mg/dL 8.4-10.2 vwrl=720) EGFR (BEAKER) (test 52 mL/min/1.73 sq m ESTIMATED GFR IS NOT ubip=1640) ACCURATE CREATININE CLEARANCE IN PREDICTING GLOMERULAR FILTRATION RATE. ESTIMATED GFR IS NOT APPLICABLE FOR DIALYSIS PATIENTS. HEPATIC FUNCTION [id number] 07:24:00 Test Item Value Reference Range Comments TOTAL PROTEIN (BEAKER) (test esbi=801) 5.3 gm/dL 6.0-8.3 ALBUMIN (BEAKER) (test lweg=8898) 3.3 g/dL 3.5-5.0 BILIRUBIN TOTAL (BEAKER) (test cnpe=902) 1.9 mg/dL 0.2-1.2 BILIRUBIN DIRECT (BEAKER) (test hefx=528) 1.2 mg/dL 0.1-0.5 ALKALINE PHOSPHATASE (BEAKER) (test jmax=566) 130 U/L 40-150 AST (SGOT) (BEAKER) (test yurp=596) 18 U/L 5-34 ALT (SGPT) (BEAKER) (test apyt=630) 16 U/L 6-55 CBC W/PLT COUNT & AUTO [id number] 07:13:00 Test Item Value Reference Range Comments WHITE BLOOD CELL COUNT (BEAKER) (test yluf=640) 5.9 K/ L 3.5-10.5 RED BLOOD CELL COUNT (BEAKER) (test tvii=565) 2.59 M/ L 4.63-6.08 HEMOGLOBIN (BEAKER) (test yrwq=144) 8.6 GM/DL 13.7-17.5 HEMATOCRIT (BEAKER) (test rxza=200) 25.2 % 40.1-51.0 MEAN CORPUSCULAR VOLUME (BEAKER) (test ffqv=666) 97.3 fL 79.0-92.2 MEAN CORPUSCULAR HEMOGLOBIN (BEAKER) (test 33.2 pg 25.7-32.2 xckg=975) MEAN CORPUSCULAR HEMOGLOBIN CONC (BEAKER) (test 34.1 GM/DL 32.3-36.5 zofk=140) RED CELL DISTRIBUTION WIDTH (BEAKER) (test 18.7 % 11.6-14.4 ebhy=770) PLATELET COUNT (BEAKER) (test zace=635) 44 K/CU MM 150-450 MEAN PLATELET VOLUME (BEAKER) (test vhhh=591) 9.6 fL 9.4-12.4 NUCLEATED RED BLOOD CELLS (BEAKER) (test 0 /100 WBC 0-0 uuxm=673) NEUTROPHILS RELATIVE PERCENT (BEAKER) (test 82 % fscn=201) LYMPHOCYTES RELATIVE PERCENT (BEAKER) (test 6 % aieb=039) MONOCYTES RELATIVE PERCENT (BEAKER) (test 12 % prqa=967) EOSINOPHILS RELATIVE PERCENT (BEAKER) (test 0 % vzzk=457) BASOPHILS RELATIVE PERCENT (BEAKER) (test 0 % ldwg=683) NEUTROPHILS ABSOLUTE COUNT (BEAKER) (test 4.79 K/ L 1.78-5.38 vndc=832) LYMPHOCYTES ABSOLUTE COUNT (BEAKER) (test 0.36 K/ L 1.32-3.57 vhbj=644) MONOCYTES ABSOLUTE COUNT (BEAKER) (test rqsy=884) 0.70 K/ L 0.30-0.82 EOSINOPHILS ABSOLUTE COUNT (BEAKER) (test 0.00 K/ L 0.04-0.54 rdmt=690) BASOPHILS ABSOLUTE COUNT (BEAKER) (test pmvv=236) 0.00 K/ L 0.01-0.08 IMMATURE GRANULOCYTES-RELATIVE PERCENT (BEAKER) 1 % 0-1 (test ejkm=3929) PROTHROMBIN [id number] 07:10:00 Test Item Value Reference Range Comments PROTIME (BEAKER) (test idhd=615) 22.0 seconds 11.7-14.7 INR (BEAKER) (test absx=288) 1.9 <=5.9 RECOMMENDED COUMADIN/WARFARIN INR THERAPY RANGESSTANDARD DOSE: 2.0 - 3.0 Includes: PROPHYLAXIS forvenous thrombosis, systemic embolization; TREATMENT for venous thrombosis and/or pulmonary embolus.HIGH RISK: Target INR is 2.5-3.5 for patients with mechanical heart valves.POCT-GLUCOSE [id number] 12:46:00 Test Item Value Reference Range Comments POC-GLUCOSE METER (BEAKER) 192 mg/dL 70-[address] [facility] [address] [facility] (test odbf=8882) [facility] [address] BODY FLUID CELL COUNT WITH [id number] 11:54:00 Test Item Value Reference Range Comments APPEARANCE FLUID (BEAKER) (test ozcr=336) Hazy Clear COLOR FLUID (BEAKER) (test ocqt=012) Yellow Colorless, Straw RBC FLUID (BEAKER) (test bdrh=713) 11 /cu mm <=1 ADJUSTED WBC FLUID (BEAKER) (test suhl=8312) 4 /cu mm <=5 LINING CELLS (BEAKER) (test qrjh=7069) 0 /cu mm <=1 NEUTROPHILS FLUID (BEAKER) (test xbhj=8277) 0 % LYMPHS FLUID (BEAKER) (test hbxs=383) 65 % MONO/MACROPHAGE FLUID (BEAKER) (test mlah=557) 35 % EOSINOPHILS FLUID (BEAKER) (test rtfq=429) 0 % BASO FLUID (BEAKER) (test aafe=728) 0 % CONTAINER BODY FLUID (BEAKER) (test zhqx=6656) EDTA Tube ALPHA FETOPROTEIN (AFP), TUMOR [id number] 06:46:00 Test Item Value Reference Range Comments ALPHA-FETOPROTEIN (BEAKER) (test jppx=6211) < ng/mL <10.0 [id number] 06:29:00 Test Item Value Reference Range Comments MAGNESIUM (BEAKER) (test okmm=320) 2.4 mg/dL 1.6-2.6 BASIC METABOLIC [id number] 06:29:00 Test Item Value Reference Range Comments SODIUM (BEAKER) (test 134 meq/L 136-145 jxen=875) POTASSIUM (BEAKER) (test 4.2 meq/L 3.5-5.1 cyem=213) CHLORIDE (BEAKER) (test 105 meq/L 98-107 eekw=235) CO2 (BEAKER) (test 23 meq/L 22-29 svtp=581) BLOOD UREA NITROGEN 44 mg/dL 7-21 (BEAKER) (test xxmb=742) CREATININE (BEAKER) (test 1.49 mg/dL 0.57-1.25 oasu=352) GLUCOSE RANDOM (BEAKER) 167 mg/dL 70-105 (test dtik=237) CALCIUM (BEAKER) (test 10.0 mg/dL 8.4-10.2 wfdh=570) EGFR (BEAKER) (test 49 mL/min/1.73 sq m ESTIMATED GFR IS NOT ylbt=3082) ACCURATE CREATININE CLEARANCE IN PREDICTING GLOMERULAR FILTRATION RATE. ESTIMATED GFR IS NOT APPLICABLE FOR DIALYSIS PATIENTS. Specimen slightly ictericHEPATIC FUNCTION [id number] 06:29:00 Test Item Value Reference Range Comments TOTAL PROTEIN (BEAKER) (test aveo=760) 5.6 gm/dL 6.0-8.3 ALBUMIN (BEAKER) (test bjmp=8642) 3.6 g/dL 3.5-5.0 BILIRUBIN TOTAL (BEAKER) (test kdor=393) 2.4 mg/dL 0.2-1.2 BILIRUBIN DIRECT (BEAKER) (test ksta=652) 1.3 mg/dL 0.1-0.5 ALKALINE PHOSPHATASE (BEAKER) (test oklg=731) 119 U/L 40-150 AST (SGOT) (BEAKER) (test ploy=879) 16 U/L 5-34 ALT (SGPT) (BEAKER) (test hbom=106) 15 U/L 6-55 Specimen slightly ictericPROTHROMBIN [id number] 06:23:00 Test Item Value Reference Range Comments PROTIME (BEAKER) (test jhgz=933) 21.8 seconds 11.7-14.7 INR (BEAKER) (test qvvk=030) 1.9 <=5.9 RECOMMENDED COUMADIN/WARFARIN INR THERAPY RANGESSTANDARD DOSE: 2.0 - 3.0 Includes: PROPHYLAXIS forvenous thrombosis, systemic embolization; TREATMENT for venous thrombosis and/or pulmonary embolus.HIGH RISK: Target INR is 2.5-3.5 for patients with mechanical heart valves.CBC W/PLT COUNT & AUTO [id number] 06:11:00 Test Item Value Reference Range Comments WHITE BLOOD CELL COUNT (BEAKER) (test rahr=585) 4.0 K/ L 3.5-10.5 RED BLOOD CELL COUNT (BEAKER) (test fdrn=942) 2.56 M/ L 4.63-6.08 HEMOGLOBIN (BEAKER) (test xedz=076) 8.4 GM/DL 13.7-17.5 HEMATOCRIT (BEAKER) (test uddp=887) 25.2 % 40.1-51.0 MEAN CORPUSCULAR VOLUME (BEAKER) (test seko=323) 98.4 fL 79.0-92.2 MEAN CORPUSCULAR HEMOGLOBIN (BEAKER) (test 32.8 pg 25.7-32.2 kcjw=743) MEAN CORPUSCULAR HEMOGLOBIN CONC (BEAKER) (test 33.3 GM/DL 32.3-36.5 dhls=965) RED CELL DISTRIBUTION WIDTH (BEAKER) (test 19.4 % 11.6-14.4 tdow=394) PLATELET COUNT (BEAKER) (test njga=809) 45 K/CU MM 150-450 MEAN PLATELET VOLUME (BEAKER) (test coyu=750) 10.0 fL 9.4-12.4 NUCLEATED RED BLOOD CELLS (BEAKER) (test 0 /100 WBC 0-0 ctqz=653) NEUTROPHILS RELATIVE PERCENT (BEAKER) (test 80 % xemd=429) LYMPHOCYTES RELATIVE PERCENT (BEAKER) (test 7 % jrcg=064) MONOCYTES RELATIVE PERCENT (BEAKER) (test 13 % dtwe=158) EOSINOPHILS RELATIVE PERCENT (BEAKER) (test 1 % frgb=637) BASOPHILS RELATIVE PERCENT (BEAKER) (test 0 % zbsx=404) NEUTROPHILS ABSOLUTE COUNT (BEAKER) (test 3.20 K/ L 1.78-5.38 ujsu=885) LYMPHOCYTES ABSOLUTE COUNT (BEAKER) (test 0.28 K/ L 1.32-3.57 kpql=854) MONOCYTES ABSOLUTE COUNT (BEAKER) (test xtoh=694) 0.50 K/ L 0.30-0.82 EOSINOPHILS ABSOLUTE COUNT (BEAKER) (test 0.02 K/ L 0.04-0.54 jovt=612) BASOPHILS ABSOLUTE COUNT (BEAKER) (test miwh=363) 0.00 K/ L 0.01-0.08 IMMATURE GRANULOCYTES-RELATIVE PERCENT (BEAKER) 0 % 0-1 (test xvwx=9801) U/S, [id number] 18:07:00Reason for exam:->Ascites with prior SBP now with encephalopathyFINAL REPORT PROCEDURE: Ultrasound -guided paracentesis. INDICATION: Ascites with prior SBP now with encephalopathy. DESCRIPTION: After obtaining informed written consent, ultrasound scan of the abdomen identified ascites in the left lower quadrant. The overlying skin was preppedand draped in the usual, sterile fashion and local 1% lidocaine anesthesia was administered. A 5 Algerian catheter was advanced into the peritoneal cavity and 9000 mL of cloudy yellow fluid was removed. The catheter was removed without immediate complication. Samples were sent for analysis. IMPRESSION:Uncomplicated ultrasound-guided paracentesis with 9000 mL of fluid removed. Signed: Nataly Dupree MDReport Verified Date/Time: 12/10 18:07:28 Reading Location: [facility] [id number] Ultrasound Reading Room HEPATIC FUNCTION [id number] 10:34:00 Test Item Value Reference Range Comments TOTAL PROTEIN (BEAKER) (test 5.5 gm/dL 6.0-8.3 Specimen slightly hemolyzed picp=301) ALBUMIN (BEAKER) (test 3.2 g/dL 3.5-5.0 Specimen slightly hemolyzed uquj=1997) BILIRUBIN TOTAL (BEAKER) (test 2.7 mg/dL 0.2-1.2 Specimen slightly hemolyzed okut=516) BILIRUBIN DIRECT (BEAKER) (test 1.1 mg/dL 0.1-0.5 Specimen slightly hemolyzed snfh=673) ALKALINE PHOSPHATASE (BEAKER) 128 U/L 40-150 (test iywp=615) AST (SGOT) (BEAKER) (test 28 U/L 5-34 Specimen slightly hemolyzed tgtx=798) ALT (SGPT) (BEAKER) (test 19 U/L 6-55 Specimen slightly hemolyzed hjzm=226) Specimen slightly [id number] 07:02:00 Test Item Value Reference Range Comments MAGNESIUM (BEAKER) (test 2.6 mg/dL 1.6-2.6 Specimen slightly hemolyzed uamr=846) BASIC METABOLIC [id number] 07:02:00 Test Item Value Reference Range Comments SODIUM (BEAKER) (test 134 meq/L 136-145 irxf=093) POTASSIUM (BEAKER) (test 4.8 meq/L 3.5-5.1 Specimen slightly nzkr=470) hemolyzed CHLORIDE (BEAKER) (test 105 meq/L 98-107 abbr=114) CO2 (BEAKER) (test 24 meq/L 22-29 tvac=636) BLOOD UREA NITROGEN 45 mg/dL 7-21 (BEAKER) (test nrry=820) CREATININE (BEAKER) (test 1.39 mg/dL 0.57-1.25 Specimen slightly tueb=811) hemolyzed GLUCOSE RANDOM (BEAKER) 134 mg/dL 70-105 (test wvfa=002) CALCIUM (BEAKER) (test 9.7 mg/dL 8.4-10.2 yfwq=975) EGFR (BEAKER) (test 53 mL/min/1.73 sq m ESTIMATED GFR IS NOT apqy=0488) ACCURATE CREATININE CLEARANCE IN PREDICTING GLOMERULAR FILTRATION RATE. ESTIMATED GFR IS NOT APPLICABLE FOR DIALYSIS PATIENTS. Specimen slightly ictericPT/[id number] 06:53:00 Test Item Value Reference Range Comments PROTIME (BEAKER) (test mavv=302) 19.7 seconds 11.7-14.7 INR (BEAKER) (test pzye=958) 1.7 <=5.9 PARTIAL THROMBOPLASTIN TIME (BEAKER) (test 39.1 seconds 22.5-36.0 bwpo=583) RECOMMENDED COUMADIN/WARFARIN INR THERAPY RANGESSTANDARD DOSE: 2.0 - 3.0 Includes: PROPHYLAXIS forvenous thrombosis, systemic embolization; TREATMENT for venous thrombosis and/or pulmonary embolus.HIGH RISK: Target INR is 2.5-3.5 for patients with mechanical heart valves.CBC W/PLT COUNT & AUTO [id number] 06:44:00 Test Item Value Reference Range Comments WHITE BLOOD CELL COUNT (BEAKER) (test qgod=949) 4.2 K/ L 3.5-10.5 RED BLOOD CELL COUNT (BEAKER) (test ideu=203) 2.73 M/ L 4.63-6.08 HEMOGLOBIN (BEAKER) (test mqdr=128) 9.0 GM/DL 13.7-17.5 HEMATOCRIT (BEAKER) (test jrjq=550) 27.0 % 40.1-51.0 MEAN CORPUSCULAR VOLUME (BEAKER) (test nove=144) 98.9 fL 79.0-92.2 MEAN CORPUSCULAR HEMOGLOBIN (BEAKER) (test 33.0 pg 25.7-32.2 nlpv=629) MEAN CORPUSCULAR HEMOGLOBIN CONC (BEAKER) (test 33.3 GM/DL 32.3-36.5 enfq=933) RED CELL DISTRIBUTION WIDTH (BEAKER) (test 19.8 % 11.6-14.4 klxn=107) PLATELET COUNT (BEAKER) (test yghx=695) 48 K/CU MM 150-450 MEAN PLATELET VOLUME (BEAKER) (test emly=441) 8.9 fL 9.4-12.4 NUCLEATED RED BLOOD CELLS (BEAKER) (test 0 /100 WBC 0-0 ibjh=818) NEUTROPHILS RELATIVE PERCENT (BEAKER) (test 75 % yvgy=988) LYMPHOCYTES RELATIVE PERCENT (BEAKER) (test 8 % kebz=809) MONOCYTES RELATIVE PERCENT (BEAKER) (test 15 % lrmy=404) EOSINOPHILS RELATIVE PERCENT (BEAKER) (test 1 % xwvv=860) BASOPHILS RELATIVE PERCENT (BEAKER) (test 0 % iokg=548) NEUTROPHILS ABSOLUTE COUNT (BEAKER) (test 3.15 K/ L 1.78-5.38 wqtf=981) LYMPHOCYTES ABSOLUTE COUNT (BEAKER) (test 0.35 K/ L 1.32-3.57 umbs=691) MONOCYTES ABSOLUTE COUNT (BEAKER) (test ferl=620) 0.65 K/ L 0.30-0.82 EOSINOPHILS ABSOLUTE COUNT (BEAKER) (test 0.04 K/ L 0.04-0.54 nkvs=911) BASOPHILS ABSOLUTE COUNT (BEAKER) (test rizh=249) 0.00 K/ L 0.01-0.08 IMMATURE GRANULOCYTES-RELATIVE PERCENT (BEAKER) 1 % 0-1 (test cwch=3199) COMPREHENSIVE METABOLIC [id number] 13:28:00 Test Item Value Reference Range Comments TOTAL PROTEIN (BEAKER) 5.9 gm/dL 6.0-8.3 (test vlpa=099) ALBUMIN (BEAKER) (test 3.5 g/dL 3.5-5.0 cwgl=9026) ALKALINE PHOSPHATASE 146 U/L 40-150 (BEAKER) (test waqu=063) BILIRUBIN TOTAL (BEAKER) 3.6 mg/dL 0.2-1.2 (test ydnr=919) SODIUM (BEAKER) (test 132 meq/L 136-145 ydxh=633) POTASSIUM (BEAKER) (test 4.5 meq/L 3.5-5.1 crzl=553) CHLORIDE (BEAKER) (test 102 meq/L 98-107 lqqq=135) CO2 (BEAKER) (test 24 meq/L 22-29 thap=826) BLOOD UREA NITROGEN 47 mg/dL 7-21 (BEAKER) (test mpqh=415) CREATININE (BEAKER) (test 1.45 mg/dL 0.57-1.25 spiv=133) GLUCOSE RANDOM (BEAKER) 113 mg/dL 70-105 (test ennb=851) CALCIUM (BEAKER) (test 10.1 mg/dL 8.4-10.2 vzgi=519) AST (SGOT) (BEAKER) (test 23 U/L 5-34 viqx=004) ALT (SGPT) (BEAKER) (test 18 U/L 6-55 qxsq=478) EGFR (BEAKER) (test 51 mL/min/1.73 sq m ESTIMATED GFR IS NOT kbky=1933) ACCURATE CREATININE CLEARANCE IN PREDICTING GLOMERULAR FILTRATION RATE. ESTIMATED GFR IS NOT APPLICABLE FOR DIALYSIS PATIENTS. Specimen moderately ictericCBC W/PLT COUNT & AUTO [id number] 13: 11:00 Test Item Value Reference Range Comments WHITE BLOOD CELL COUNT (BEAKER) (test qqkg=530) 4.3 K/ L 3.5-10.5 RED BLOOD CELL COUNT (BEAKER) (test pgkw=583) 2.98 M/ L 4.63-6.08 HEMOGLOBIN (BEAKER) (test qgvz=358) 9.7 GM/DL 13.7-17.5 HEMATOCRIT (BEAKER) (test fpcp=254) 29.0 % 40.1-51.0 MEAN CORPUSCULAR VOLUME (BEAKER) (test yhfz=296) 97.3 fL 79.0-92.2 MEAN CORPUSCULAR HEMOGLOBIN (BEAKER) (test 32.6 pg 25.7-32.2 uugd=157) MEAN CORPUSCULAR HEMOGLOBIN CONC (BEAKER) (test 33.4 GM/DL 32.3-36.5 kprv=618) RED CELL DISTRIBUTION WIDTH (BEAKER) (test 19.9 % 11.6-14.4 oqcp=603) PLATELET COUNT (BEAKER) (test lpsv=673) 49 K/CU MM 150-450 MEAN PLATELET VOLUME (BEAKER) (test mmfn=766) 9.6 fL 9.4-12.4 NUCLEATED RED BLOOD CELLS (BEAKER) (test 0 /100 WBC 0-0 yjbz=046) NEUTROPHILS RELATIVE PERCENT (BEAKER) (test 74 % qudr=965) LYMPHOCYTES RELATIVE PERCENT (BEAKER) (test 9 % pnxg=537) MONOCYTES RELATIVE PERCENT (BEAKER) (test 13 % vrpn=681) EOSINOPHILS RELATIVE PERCENT (BEAKER) (test 3 % fkyl=259) BASOPHILS RELATIVE PERCENT (BEAKER) (test 0 % wgtk=401) NEUTROPHILS ABSOLUTE COUNT (BEAKER) (test 3.18 K/ L 1.78-5.38 lzhx=769) LYMPHOCYTES ABSOLUTE COUNT (BEAKER) (test 0.40 K/ L 1.32-3.57 luay=742) MONOCYTES ABSOLUTE COUNT (BEAKER) (test syxv=335) 0.55 K/ L 0.30-0.82 EOSINOPHILS ABSOLUTE COUNT (BEAKER) (test 0.13 K/ L 0.04-0.54 gnlu=758) BASOPHILS ABSOLUTE COUNT (BEAKER) (test jrim=377) 0.01 K/ L 0.01-0.08 IMMATURE GRANULOCYTES-RELATIVE PERCENT (BEAKER) 0 % 0-1 (test pffg=6295) URINALYSIS W/ REFLEX URINE [id number] 12:06:00 Test Item Value Reference Range Comments COLOR (BEAKER) (test yjjn=300) Yellow CLARITY (BEAKER) (test eoaq=360) Clear SPECIFIC GRAVITY UA (BEAKER) (test hvte=866) 1.018 1.001-1.035 PH UA (BEAKER) (test ogfb=949) 6.0 5.0-8.0 PROTEIN UA (BEAKER) (test yihq=813) Negative Negative GLUCOSE UA (BEAKER) (test fcma=059) Negative Negative KETONES UA (BEAKER) (test cytk=705) Negative Negative BILIRUBIN UA (BEAKER) (test fgcv=652) Negative Negative BLOOD UA (BEAKER) (test ekqq=638) Small Negative NITRITE UA (BEAKER) (test mitr=883) Negative Negative LEUKOCYTE ESTERASE UA (BEAKER) (test mjmz=498) Negative Negative UROBILINOGEN UA (BEAKER) (test tvpa=491) 0.2 mg/dL 0.2-1.0 RBC UA (BEAKER) (test tmna=922) 1 /HPF WBC UA (BEAKER) (test cmqa=188) 7 /HPF SOURCE(BEAKER) (test bxaj=0290) BODY FLUID CULTURE + GRAM [id number] 11:04:00 Test Item Value Reference Range Comments CULTURE (BEAKER) (test etpl=2888) No growth GRAM STAIN RESULT (BEAKER) (test <1+ WBCs szsa=3641) GRAM STAIN RESULT (BEAKER) (test No organisms seen illf=29241) POCT-GLUCOSE [id number] 11:52:00 Test Item Value Reference Range Comments POC-GLUCOSE METER (BEAKER) 224 mg/dL 70-[address] [facility] [address] [facility] (test ywly=6637) [facility] [address] POCT-GLUCOSE [id number] 08:27:00 Test Item Value Reference Range Comments POC-GLUCOSE METER (BEAKER) 159 mg/dL 70-[address] [facility] [address] [facility] (test owgp=8390) [facility] [address] CBC W/PLT COUNT & AUTO [id number] 06:22:00 Test Item Value Reference Range Comments WHITE BLOOD CELL COUNT (BEAKER) (test pjdz=392) 5.7 K/ L 3.5-10.5 RED BLOOD CELL COUNT (BEAKER) (test gorh=728) 2.69 M/ L 4.63-6.08 HEMOGLOBIN (BEAKER) (test cgql=228) 8.7 GM/DL 13.7-17.5 HEMATOCRIT (BEAKER) (test yoxi=549) 25.4 % 40.1-51.0 MEAN CORPUSCULAR VOLUME (BEAKER) (test fnrn=045) 94.4 fL 79.0-92.2 MEAN CORPUSCULAR HEMOGLOBIN (BEAKER) (test 32.3 pg 25.7-32.2 vjco=404) MEAN CORPUSCULAR HEMOGLOBIN CONC (BEAKER) (test 34.3 GM/DL 32.3-36.5 yhxq=499) RED CELL DISTRIBUTION WIDTH (BEAKER) (test 16.8 % 11.6-14.4 vvgb=878) PLATELET COUNT (BEAKER) (test raua=177) 43 K/CU MM 150-450 MEAN PLATELET VOLUME (BEAKER) (test zirl=237) 10.6 fL 9.4-12.4 NUCLEATED RED BLOOD CELLS (BEAKER) (test 0 /100 WBC 0-0 exay=701) NEUTROPHILS RELATIVE PERCENT (BEAKER) (test 82 % ksuw=685) LYMPHOCYTES RELATIVE PERCENT (BEAKER) (test 7 % vpxg=498) MONOCYTES RELATIVE PERCENT (BEAKER) (test 9 % odux=384) EOSINOPHILS RELATIVE PERCENT (BEAKER) (test 0 % yiem=053) BASOPHILS RELATIVE PERCENT (BEAKER) (test 0 % lvbm=136) NEUTROPHILS ABSOLUTE COUNT (BEAKER) (test 4.65 K/ L 1.78-5.38 frfm=946) LYMPHOCYTES ABSOLUTE COUNT (BEAKER) (test 0.38 K/ L 1.32-3.57 fkip=645) MONOCYTES ABSOLUTE COUNT (BEAKER) (test qvvr=290) 0.53 K/ L 0.30-0.82 EOSINOPHILS ABSOLUTE COUNT (BEAKER) (test 0.01 K/ L 0.04-0.54 gsbu=653) BASOPHILS ABSOLUTE COUNT (BEAKER) (test ftdp=680) 0.01 K/ L 0.01-0.08 IMMATURE GRANULOCYTES-RELATIVE PERCENT (BEAKER) 1 % 0-1 (test nfmi=1630) B-TYPE NATRIURETIC FACTOR (BNP)2018-11-20 06:16:00 Test Item Value Reference Range Comments B-TYPE NATRIURETIC PEPTIDE (BEAKER) (test 2158 pg/mL 0-100 swaw=374) [id number] 06:15:00 Test Item Value Reference Range Comments PHOSPHORUS (BEAKER) (test yjhe=817) 2.5 mg/dL 2.3-4.7 [id number] 06:15:00 Test Item Value Reference Range Comments MAGNESIUM (BEAKER) (test ugty=961) 1.8 mg/dL 1.6-2.6 COMPREHENSIVE METABOLIC [id number] 06:15:00 Test Item Value Reference Range Comments TOTAL PROTEIN (BEAKER) 5.4 gm/dL 6.0-8.3 (test qlqy=881) ALBUMIN (BEAKER) (test 4.1 g/dL 3.5-5.0 zxoy=7245) ALKALINE PHOSPHATASE 63 U/L 40-150 (BEAKER) (test knnd=441) BILIRUBIN TOTAL (BEAKER) 2.6 mg/dL 0.2-1.2 (test ossd=871) SODIUM (BEAKER) (test 136 meq/L 136-145 hmjv=476) POTASSIUM (BEAKER) (test 3.9 meq/L 3.5-5.1 hqad=847) CHLORIDE (BEAKER) (test 107 meq/L 98-107 terd=225) CO2 (BEAKER) (test 23 meq/L 22-29 nudk=042) BLOOD UREA NITROGEN 41 mg/dL 7-21 (BEAKER) (test ecsa=507) CREATININE (BEAKER) (test 1.47 mg/dL 0.57-1.25 aktz=032) GLUCOSE RANDOM (BEAKER) 169 mg/dL 70-105 (test esto=091) CALCIUM (BEAKER) (test 10.0 mg/dL 8.4-10.2 xdly=449) AST (SGOT) (BEAKER) (test 13 U/L 5-34 vssr=570) ALT (SGPT) (BEAKER) (test 9 U/L 6-55 aera=380) EGFR (BEAKER) (test 50 mL/min/1.73 sq m ESTIMATED GFR IS NOT yede=6278) ACCURATE CREATININE CLEARANCE IN PREDICTING GLOMERULAR FILTRATION RATE. ESTIMATED GFR IS NOT APPLICABLE FOR DIALYSIS PATIENTS. CALCIUM, [id number] 05:45:00 Test Item Value Reference Range Comments CALCIUM IONIZED (BEAKER) (test bgct=247) 1.28 mmol/L 1.12-1.27 PH, BLOOD (BEAKER) (test toey=0115) 7.39 POCT-GLUCOSE [id number] 21:51:00 Test Item Value Reference Range Comments POC-GLUCOSE METER (BEAKER) 143 mg/dL 70-110 TESTED AT [address] (test kwhd=6015) [place] [address] POCT-GLUCOSE [id number] 17:44:00 Test Item Value Reference Range Comments POC-GLUCOSE METER (BEAKER) 288 mg/dL 70-110 TESTED AT [address] (test whai=1744) [place] [address] POCT-GLUCOSE [id number] 12:55:00 Test Item Value Reference Range Comments POC-GLUCOSE METER (BEAKER) 310 mg/dL 70-110 TESTED AT [address] (test uptf=9147) [place] [address] POCT-GLUCOSE [id number] 09:01:00 Test Item Value Reference Range Comments POC-GLUCOSE METER (BEAKER) 162 mg/dL 70-110 TESTED AT [address] (test rqgt=1145) [place] [address] HEMOGLOBIN AND [id number] 08:59:00 Test Item Value Reference Range Comments HEMOGLOBIN (BEAKER) (test slbq=653) 6.6 GM/DL 13.7-17.5 HEMATOCRIT (BEAKER) (test fumj=423) 19.7 % 40.1-51.0 [id number] 06:54:00 Test Item Value Reference Range Comments PHOSPHORUS (BEAKER) (test vdyh=215) 1.0 mg/dL 2.3-4.7 [id number] 06:42:00 Test Item Value Reference Range Comments MAGNESIUM (BEAKER) (test smck=491) 2.2 mg/dL 1.6-2.6 COMPREHENSIVE METABOLIC [id number] 06:42:00 Test Item Value Reference Range Comments TOTAL PROTEIN (BEAKER) 5.7 gm/dL 6.0-8.3 (test dzgx=359) ALBUMIN (BEAKER) (test 4.3 g/dL 3.5-5.0 xjue=9866) ALKALINE PHOSPHATASE 56 U/L 40-150 (BEAKER) (test kqbz=129) BILIRUBIN TOTAL (BEAKER) 1.3 mg/dL 0.2-1.2 (test kmzh=194) SODIUM (BEAKER) (test 134 meq/L 136-145 ejeu=397) POTASSIUM (BEAKER) (test 4.2 meq/L 3.5-5.1 jiad=071) CHLORIDE (BEAKER) (test 107 meq/L 98-107 rhbu=998) CO2 (BEAKER) (test 21 meq/L 22-29 xhqb=148) BLOOD UREA NITROGEN 38 mg/dL 7-21 (BEAKER) (test spwn=429) CREATININE (BEAKER) (test 1.41 mg/dL 0.57-1.25 sluf=753) GLUCOSE RANDOM (BEAKER) 144 mg/dL 70-105 (test fkcz=136) CALCIUM (BEAKER) (test 10.6 mg/dL 8.4-10.2 viba=005) AST (SGOT) (BEAKER) (test 13 U/L 5-34 etbp=226) ALT (SGPT) (BEAKER) (test 8 U/L 6-55 rbxi=599) EGFR (BEAKER) (test 53 mL/min/1.73 sq m ESTIMATED GFR IS NOT udpg=5979) ACCURATE CREATININE CLEARANCE IN PREDICTING GLOMERULAR FILTRATION RATE. ESTIMATED GFR IS NOT APPLICABLE FOR DIALYSIS PATIENTS. CALCIUM, [id number] 05:52:00 Test Item Value Reference Range Comments CALCIUM IONIZED (BEAKER) (test ssiz=880) 1.25 mmol/L 1.12-1.27 PH, BLOOD (BEAKER) (test idhb=7375) 7.47 CBC W/PLT COUNT & AUTO [id number] 04:49:00 Test Item Value Reference Range Comments WHITE BLOOD CELL COUNT (BEAKER) (test vxbr=711) 4.6 K/ L 3.5-10.5 RED BLOOD CELL COUNT (BEAKER) (test qsvv=878) 2.09 M/ L 4.63-6.08 HEMOGLOBIN (BEAKER) (test uunt=794) 6.6 GM/DL 13.7-17.5 HEMATOCRIT (BEAKER) (test sizi=950) 19.8 % 40.1-51.0 MEAN CORPUSCULAR VOLUME (BEAKER) (test vwzk=323) 94.7 fL 79.0-92.2 MEAN CORPUSCULAR HEMOGLOBIN (BEAKER) (test 31.6 pg 25.7-32.2 ixmp=470) MEAN CORPUSCULAR HEMOGLOBIN CONC (BEAKER) (test 33.3 GM/DL 32.3-36.5 tkiq=701) RED CELL DISTRIBUTION WIDTH (BEAKER) (test 16.0 % 11.6-14.4 mrqt=857) PLATELET COUNT (BEAKER) (test hukx=878) 49 K/CU MM 150-450 MEAN PLATELET VOLUME (BEAKER) (test yaoh=549) 9.3 fL 9.4-12.4 NUCLEATED RED BLOOD CELLS (BEAKER) (test 0 /100 WBC 0-0 jnyv=014) NEUTROPHILS RELATIVE PERCENT (BEAKER) (test 84 % duzs=973) LYMPHOCYTES RELATIVE PERCENT (BEAKER) (test 6 % bgqv=666) MONOCYTES RELATIVE PERCENT (BEAKER) (test 8 % oxlo=522) EOSINOPHILS RELATIVE PERCENT (BEAKER) (test 0 % maff=089) BASOPHILS RELATIVE PERCENT (BEAKER) (test 0 % jihn=428) NEUTROPHILS ABSOLUTE COUNT (BEAKER) (test 3.90 K/ L 1.78-5.38 dbrk=784) LYMPHOCYTES ABSOLUTE COUNT (BEAKER) (test 0.29 K/ L 1.32-3.57 jcpa=819) MONOCYTES ABSOLUTE COUNT (BEAKER) (test jrhd=057) 0.39 K/ L 0.30-0.82 EOSINOPHILS ABSOLUTE COUNT (BEAKER) (test 0.00 K/ L 0.04-0.54 rmrq=946) BASOPHILS ABSOLUTE COUNT (BEAKER) (test ynzs=305) 0.00 K/ L 0.01-0.08 IMMATURE GRANULOCYTES-RELATIVE PERCENT (BEAKER) 1 % 0-1 (test dvmd=5836) POCT-GLUCOSE [id number] 22:24:00 Test Item Value Reference Range Comments POC-GLUCOSE METER (BEAKER) 272 mg/dL 70-110 TESTED AT [address] (test lqkj=1958) [place] [id number] BODY FLUID CELL COUNT WITH [id number] 20:26:00 Test Item Value Reference Range Comments APPEARANCE FLUID (BEAKER) (test wgca=326) Clear Clear COLOR FLUID (BEAKER) (test gngo=207) Yellow Colorless, Straw RBC FLUID (BEAKER) (test ftms=737) 160 /cu mm <=1 ADJUSTED WBC FLUID (BEAKER) (test fhdw=2719) 66 /cu mm <=5 LINING CELLS (BEAKER) (test gwby=8773) 0 /cu mm <=1 NEUTROPHILS FLUID (BEAKER) (test bxny=7553) 2 % LYMPHS FLUID (BEAKER) (test bsvp=780) 17 % MONO/MACROPHAGE FLUID (BEAKER) (test kewe=444) 81 % EOSINOPHILS FLUID (BEAKER) (test bcry=954) 0 % BASO FLUID (BEAKER) (test lpfv=216) 0 % CONTAINER BODY FLUID (BEAKER) (test wbwu=3075) EDTA Tube ALBUMIN, BODY [id number] 18:58:00 Test Item Value Reference Range Comments ALBUMIN FLUID (BEAKER) (test fxcq=325) 1.6 gm/dL Reference Range: No Normals Assay performance has not been validated for this type of specimen.POCT-GLUCOSE [id number] 17:51:00 Test Item Value Reference Range Comments POC-GLUCOSE METER (BEAKER) 275 mg/dL 70-110 TESTED AT [address] (test uqkp=3449) [place] [id number] U/S, [id number] 16:16:00Reason for exam:->ascitesFINAL REPORT History: Ascites. Procedure: Following informed written consent, the patient's left lower quadrant was prepped and draped in the usual sterile manner. 2% lidocaine was given locally for anesthesia. No conscious sedation was administered. Using ultrasound guidance and a 5 ir[place]i angiocatheter, access was gained to the left [...] Verified Date/Time: 11/18/2018 16:16:57 Reading Location: [facility] [id number] Ultrasound Reading Room POCT-GLUCOSE [id number] 10:24:00 Test Item Value Reference Range Comments POC-GLUCOSE METER (BEAKER) 187 mg/dL 70-[address] [facility] [address] [facility] (test uzgo=8717) [place] [facility] [id number] CALCIUM, [id number] 07:11:00 Test Item Value Reference Range Comments CALCIUM IONIZED (BEAKER) (test ulko=332) 1.42 mmol/L 1.12-1.27 PH, BLOOD (BEAKER) (test gjqk=3543) 7.38 VITAMIN D, [id number] 07:00:00 Test Item Value Reference Range Comments VITAMIN D 25-OH (BEAKER) (test xmzc=0729) 6.3 ng/mL 6.6-49.9 Effective 08/06/2017: Reference Range ChangeNew: 6.6-49.9 ng/mL Previous: 13.0 -47.8 ng/mLRecommended Vitamin D Target Range: 30.0-40.0 ng/[id number] 06:43:00 Test Item Value Reference Range Comments PHOSPHORUS (BEAKER) (test joqv=415) 1.6 mg/dL 2.3-4.7 [id number] 06:43:00 Test Item Value Reference Range Comments MAGNESIUM (BEAKER) (test wsgr=613) 2.1 mg/dL 1.6-2.6 PTH, [id number] 06:43:00 Test Item Value Reference Range Comments PARATHYROID HORMONE INTACT (BEAKER) (test 18.8 pg/mL 8.5-72.5 kkde=792) COMPREHENSIVE METABOLIC [id number] 06:43:00 Test Item Value Reference Range Comments TOTAL PROTEIN (BEAKER) 5.9 gm/dL 6.0-8.3 (test wptb=437) ALBUMIN (BEAKER) (test 4.4 g/dL 3.5-5.0 gzrm=7778) ALKALINE PHOSPHATASE 66 U/L 40-150 (BEAKER) (test fcvn=487) BILIRUBIN TOTAL (BEAKER) 1.5 mg/dL 0.2-1.2 (test bdlj=090) SODIUM (BEAKER) (test 134 meq/L 136-145 aegu=562) POTASSIUM (BEAKER) (test 3.2 meq/L 3.5-5.1 bgmx=460) CHLORIDE (BEAKER) (test 104 meq/L 98-107 zvsu=483) CO2 (BEAKER) (test 21 meq/L 22-29 vyse=807) BLOOD UREA NITROGEN 33 mg/dL 7-21 (BEAKER) (test lkmu=836) CREATININE (BEAKER) (test 1.60 mg/dL 0.57-1.25 nhhf=507) GLUCOSE RANDOM (BEAKER) 149 mg/dL 70-105 (test pqeb=806) CALCIUM (BEAKER) (test 11.1 mg/dL 8.4-10.2 mxmr=171) AST (SGOT) (BEAKER) (test 12 U/L 5-34 fovp=113) ALT (SGPT) (BEAKER) (test 9 U/L 6-55 dswi=850) EGFR (BEAKER) (test 45 mL/min/1.73 sq m ESTIMATED GFR IS NOT euit=5778) ACCURATE CREATININE CLEARANCE IN PREDICTING GLOMERULAR FILTRATION RATE. ESTIMATED GFR IS NOT APPLICABLE FOR DIALYSIS PATIENTS. CBC W/PLT COUNT & AUTO [id number] 06:28:00 Test Item Value Reference Range Comments WHITE BLOOD CELL COUNT (BEAKER) (test sqln=404) 4.6 K/ L 3.5-10.5 RED BLOOD CELL COUNT (BEAKER) (test gdfc=943) 2.27 M/ L 4.63-6.08 HEMOGLOBIN (BEAKER) (test nxyc=107) 7.3 GM/DL 13.7-17.5 HEMATOCRIT (BEAKER) (test mysj=235) 21.4 % 40.1-51.0 MEAN CORPUSCULAR VOLUME (BEAKER) (test qymr=300) 94.3 fL 79.0-92.2 MEAN CORPUSCULAR HEMOGLOBIN (BEAKER) (test 32.2 pg 25.7-32.2 exsi=709) MEAN CORPUSCULAR HEMOGLOBIN CONC (BEAKER) (test 34.1 GM/DL 32.3-36.5 nmyx=080) RED CELL DISTRIBUTION WIDTH (BEAKER) (test 15.8 % 11.6-14.4 pvrb=924) PLATELET COUNT (BEAKER) (test hgjr=793) 51 K/CU MM 150-450 MEAN PLATELET VOLUME (BEAKER) (test expx=140) 9.8 fL 9.4-12.4 NUCLEATED RED BLOOD CELLS (BEAKER) (test 0 /100 WBC 0-0 ebxd=834) NEUTROPHILS RELATIVE PERCENT (BEAKER) (test 76 % yvwp=590) LYMPHOCYTES RELATIVE PERCENT (BEAKER) (test 7 % xase=042) MONOCYTES RELATIVE PERCENT (BEAKER) (test 15 % lsts=794) EOSINOPHILS RELATIVE PERCENT (BEAKER) (test 1 % otdg=262) BASOPHILS RELATIVE PERCENT (BEAKER) (test 0 % bsgv=650) NEUTROPHILS ABSOLUTE COUNT (BEAKER) (test 3.50 K/ L 1.78-5.38 wjnk=431) LYMPHOCYTES ABSOLUTE COUNT (BEAKER) (test 0.31 K/ L 1.32-3.57 fwmb=119) MONOCYTES ABSOLUTE COUNT (BEAKER) (test irod=960) 0.69 K/ L 0.30-0.82 EOSINOPHILS ABSOLUTE COUNT (BEAKER) (test 0.04 K/ L 0.04-0.54 zsss=387) BASOPHILS ABSOLUTE COUNT (BEAKER) (test sguq=404) 0.00 K/ L 0.01-0.08 IMMATURE GRANULOCYTES-RELATIVE PERCENT (BEAKER) 1 % 0-1 (test arga=6118) POCT-GLUCOSE [id number] 23:08:00 Test Item Value Reference Range Comments POC-GLUCOSE METER (BEAKER) 259 mg/dL 70-[address] [facility] [address] [facility] (test xpyh=1467) [facility] [address] POCT-GLUCOSE [id number] 18:53:00 Test Item Value Reference Range Comments POC-GLUCOSE METER (BEAKER) 211 mg/dL 70-[address] [facility] [address] [facility] (test fbie=4944) [facility] [address] POCT-GLUCOSE [id number] 08:37:00 Test Item Value Reference Range Comments POC-GLUCOSE METER (BEAKER) 208 mg/dL 70-[address] [facility] [address] [facility] (test xjyn=5542) [facility] [address] [id number] 07:38:00 Test Item Value Reference Range Comments PHOSPHORUS (BEAKER) (test pwpr=081) 2.3 mg/dL 2.3-4.7 [id number] 07:38:00 Test Item Value Reference Range Comments MAGNESIUM (BEAKER) (test zbhe=152) 2.2 mg/dL 1.6-2.6 BASIC METABOLIC [id number] 07:38:00 Test Item Value Reference Range Comments SODIUM (BEAKER) (test 132 meq/L 136-145 oadc=397) POTASSIUM (BEAKER) (test 3.9 meq/L 3.5-5.1 krlv=835) CHLORIDE (BEAKER) (test 103 meq/L 98-107 nwll=397) CO2 (BEAKER) (test 18 meq/L 22-29 mtum=230) BLOOD UREA NITROGEN 32 mg/dL 7-21 (BEAKER) (test ujfk=741) CREATININE (BEAKER) (test 1.59 mg/dL 0.57-1.25 gsaz=889) GLUCOSE RANDOM (BEAKER) 152 mg/dL 70-105 (test ibks=758) CALCIUM (BEAKER) (test 10.9 mg/dL 8.4-10.2 nogf=940) EGFR (BEAKER) (test 46 mL/min/1.73 sq m ESTIMATED GFR IS NOT dohy=9566) ACCURATE CREATININE CLEARANCE IN PREDICTING GLOMERULAR FILTRATION RATE. ESTIMATED GFR IS NOT APPLICABLE FOR DIALYSIS PATIENTS. CALCIUM, [id number] 07:14:00 Test Item Value Reference Range Comments CALCIUM IONIZED (BEAKER) (test ymod=321) 1.33 mmol/L 1.12-1.27 PH, BLOOD (BEAKER) (test xntk=1897) 7.34 CBC W/PLT COUNT & AUTO [id number] 07:13:00 Test Item Value Reference Range Comments WHITE BLOOD CELL COUNT (BEAKER) (test stwv=334) 5.7 K/ L 3.5-10.5 RED BLOOD CELL COUNT (BEAKER) (test bzyx=089) 2.38 M/ L 4.63-6.08 HEMOGLOBIN (BEAKER) (test lduj=372) 7.6 GM/DL 13.7-17.5 HEMATOCRIT (BEAKER) (test tsnz=516) 22.6 % 40.1-51.0 MEAN CORPUSCULAR VOLUME (BEAKER) (test vllw=973) 95.0 fL 79.0-92.2 MEAN CORPUSCULAR HEMOGLOBIN (BEAKER) (test 31.9 pg 25.7-32.2 vazu=816) MEAN CORPUSCULAR HEMOGLOBIN CONC (BEAKER) (test 33.6 GM/DL 32.3-36.5 rcbz=447) RED CELL DISTRIBUTION WIDTH (BEAKER) (test 15.8 % 11.6-14.4 izpc=799) PLATELET COUNT (BEAKER) (test gzwz=312) 60 K/CU MM 150-450 MEAN PLATELET VOLUME (BEAKER) (test ywsn=897) 9.6 fL 9.4-12.4 NUCLEATED RED BLOOD CELLS (BEAKER) (test 0 /100 WBC 0-0 eyvm=833) NEUTROPHILS RELATIVE PERCENT (BEAKER) (test 79 % oktn=994) LYMPHOCYTES RELATIVE PERCENT (BEAKER) (test 7 % mdam=533) MONOCYTES RELATIVE PERCENT (BEAKER) (test 14 % vnay=332) EOSINOPHILS RELATIVE PERCENT (BEAKER) (test 0 % fzkl=420) BASOPHILS RELATIVE PERCENT (BEAKER) (test 0 % cuse=563) NEUTROPHILS ABSOLUTE COUNT (BEAKER) (test 4.49 K/ L 1.78-5.38 emwg=639) LYMPHOCYTES ABSOLUTE COUNT (BEAKER) (test 0.38 K/ L 1.32-3.57 tpiv=834) MONOCYTES ABSOLUTE COUNT (BEAKER) (test kfer=793) 0.77 K/ L 0.30-0.82 EOSINOPHILS ABSOLUTE COUNT (BEAKER) (test 0.00 K/ L 0.04-0.54 ylem=806) BASOPHILS ABSOLUTE COUNT (BEAKER) (test zhhf=797) 0.00 K/ L 0.01-0.08 IMMATURE GRANULOCYTES-RELATIVE PERCENT (BEAKER) 1 % 0-1 (test cqrd=0151) POCT-GLUCOSE [id number] 21:28:00 Test Item Value Reference Range Comments POC-GLUCOSE METER (BEAKER) 229 mg/dL 70-110 TESTED AT [address] (test bium=0677) [place] [address] POCT-GLUCOSE [id number] 16:58:00 Test Item Value Reference Range Comments POC-GLUCOSE METER (BEAKER) 207 mg/dL 70-110 TESTED AT [address] (test ryec=7785) [place] [address] POCT-GLUCOSE [id number] 15:38:00 Test Item Value Reference Range Comments POC-GLUCOSE METER (BEAKER) 198 mg/dL 70-110 TESTED AT [address] (test bdtn=5864) [place] [address] BASIC METABOLIC [id number] 14:09:00 Test Item Value Reference Range Comments SODIUM (BEAKER) (test 128 meq/L 136-145 qnwb=557) POTASSIUM (BEAKER) (test 3.7 meq/L 3.5-5.1 tzmj=412) CHLORIDE (BEAKER) (test 102 meq/L 98-107 keas=581) CO2 (BEAKER) (test 17 meq/L 22-29 ywnt=363) BLOOD UREA NITROGEN 32 mg/dL 7-21 (BEAKER) (test dnoe=951) CREATININE (BEAKER) (test 1.59 mg/dL 0.57-1.25 nckp=007) GLUCOSE RANDOM (BEAKER) 200 mg/dL 70-105 (test ozcl=091) CALCIUM (BEAKER) (test 10.1 mg/dL 8.4-10.2 rbxu=613) EGFR (BEAKER) (test 46 mL/min/1.73 sq m ESTIMATED GFR IS NOT ewpz=6184) ACCURATE CREATININE CLEARANCE IN PREDICTING GLOMERULAR FILTRATION RATE. ESTIMATED GFR IS NOT APPLICABLE FOR DIALYSIS PATIENTS. POCT-GLUCOSE [id number] 08:26:00 Test Item Value Reference Range Comments POC-GLUCOSE METER (BEAKER) 188 mg/dL 70-110 TESTED AT [address] (test cjcm=9865) [place] [address] BLOOD [id number] 07:00:00 Test Item Value Reference Range Comments CULTURE (BEAKER) (test wuka=0366) No growth in 5 days BLOOD [id number] 07:00:00 Test Item Value Reference Range Comments CULTURE (BEAKER) (test szaq=8614) No growth in 5 days BLOOD GAS, [id number] 06:30:00 Test Item Value Reference Range Comments PH VENOUS (BEAKER) (test uqyo=928) 7.39 7.32-7.42 PCO2 VENOUS (BEAKER) (test dexs=401) 35 mmHg 41-51 PO2 VENOUS (BEAKER) (test bbvt=220) 97 mmHg 25-40 O2 SATURATION VENOUS (BEAKER) (test rpcg=629) 97.4 % 40.0-70.0 HCO3 VENOUS (BEAKER) (test itkz=244) 21 mmol/L 21-29 BASE EXCESS VENOUS (BEAKER) (test vret=605) -3.8 mmol/L -2.0-3.0 PATIENT TEMPERATURE (BEAKER) (test hqgg=3684) 37.0 C FIO2 (BEAKER) (test plxv=9080) 100.0 % CBC W/PLT COUNT & AUTO [id number] 06:20:00 Test Item Value Reference Range Comments WHITE BLOOD CELL COUNT (BEAKER) (test qxhh=099) 6.2 K/ L 3.5-10.5 RED BLOOD CELL COUNT (BEAKER) (test fyhi=313) 2.22 M/ L 4.63-6.08 HEMOGLOBIN (BEAKER) (test jsvv=129) 7.0 GM/DL 13.7-17.5 HEMATOCRIT (BEAKER) (test rcqj=988) 20.4 % 40.1-51.0 MEAN CORPUSCULAR VOLUME (BEAKER) (test ywgo=167) 91.9 fL 79.0-92.2 MEAN CORPUSCULAR HEMOGLOBIN (BEAKER) (test 31.5 pg 25.7-32.2 ukqn=932) MEAN CORPUSCULAR HEMOGLOBIN CONC (BEAKER) (test 34.3 GM/DL 32.3-36.5 dxyc=947) RED CELL DISTRIBUTION WIDTH (BEAKER) (test 14.9 % 11.6-14.4 wjdn=658) PLATELET COUNT (BEAKER) (test koot=697) 53 K/CU MM 150-450 MEAN PLATELET VOLUME (BEAKER) (test wtze=829) 9.5 fL 9.4-12.4 NUCLEATED RED BLOOD CELLS (BEAKER) (test 0 /100 WBC 0-0 lgfm=253) NEUTROPHILS RELATIVE PERCENT (BEAKER) (test 84 % qrnz=152) LYMPHOCYTES RELATIVE PERCENT (BEAKER) (test 5 % djid=708) MONOCYTES RELATIVE PERCENT (BEAKER) (test 11 % jfvi=376) EOSINOPHILS RELATIVE PERCENT (BEAKER) (test 0 % mifj=287) BASOPHILS RELATIVE PERCENT (BEAKER) (test 0 % ucyn=702) NEUTROPHILS ABSOLUTE COUNT (BEAKER) (test 5.16 K/ L 1.78-5.38 ujlm=157) LYMPHOCYTES ABSOLUTE COUNT (BEAKER) (test 0.30 K/ L 1.32-3.57 ljga=020) MONOCYTES ABSOLUTE COUNT (BEAKER) (test jcye=919) 0.69 K/ L 0.30-0.82 EOSINOPHILS ABSOLUTE COUNT (BEAKER) (test 0.00 K/ L 0.04-0.54 omeh=541) BASOPHILS ABSOLUTE COUNT (BEAKER) (test njjg=356) 0.00 K/ L 0.01-0.08 IMMATURE GRANULOCYTES-RELATIVE PERCENT (BEAKER) 1 % 0-1 (test ejwn=9524) POCT-GLUCOSE [id number] 05:04:00 Test Item Value Reference Range Comments POC-GLUCOSE METER (BEAKER) 298 mg/dL 70-110 TESTED AT [address] (test iqxb=6705) [place] [id number] POCT-GLUCOSE [id number] 12:28:00 Test Item Value Reference Range Comments POC-GLUCOSE METER (BEAKER) 261 mg/dL 70-110 TESTED AT [address] (test vful=0496) [place] [address] BODY FLUID CULTURE + GRAM [id number] 10:18:00 Test Item Value Reference Range Comments CULTURE (BEAKER) (test nmmj=5872) No growth GRAM STAIN RESULT (BEAKER) (test 1+ WBCs ccsz=6690) GRAM STAIN RESULT (BEAKER) (test No organisms seen tflr=29247) CBC W/PLT COUNT & AUTO [id number] 09:22:00 Test Item Value Reference Range Comments WHITE BLOOD CELL COUNT (BEAKER) (test vtxh=994) 6.7 K/ L 3.5-10.5 RED BLOOD CELL COUNT (BEAKER) (test yxid=957) 2.18 M/ L 4.63-6.08 HEMOGLOBIN (BEAKER) (test fprl=960) 7.0 GM/DL 13.7-17.5 HEMATOCRIT (BEAKER) (test uykw=265) 20.4 % 40.1-51.0 MEAN CORPUSCULAR VOLUME (BEAKER) (test qnrv=920) 93.6 fL 79.0-92.2 MEAN CORPUSCULAR HEMOGLOBIN (BEAKER) (test 32.1 pg 25.7-32.2 usyy=554) MEAN CORPUSCULAR HEMOGLOBIN CONC (BEAKER) (test 34.3 GM/DL 32.3-36.5 mqws=094) RED CELL DISTRIBUTION WIDTH (BEAKER) (test 15.1 % 11.6-14.4 fsqu=361) PLATELET COUNT (BEAKER) (test dtzt=172) 62 K/CU MM 150-450 MEAN PLATELET VOLUME (BEAKER) (test uwhq=841) 9.0 fL 9.4-12.4 NUCLEATED RED BLOOD CELLS (BEAKER) (test 0 /100 WBC 0-0 kldn=302) NEUTROPHILS RELATIVE PERCENT (BEAKER) (test 84 % urfc=054) LYMPHOCYTES RELATIVE PERCENT (BEAKER) (test 5 % xhab=070) MONOCYTES RELATIVE PERCENT (BEAKER) (test 10 % tfza=441) EOSINOPHILS RELATIVE PERCENT (BEAKER) (test 0 % yuhg=561) BASOPHILS RELATIVE PERCENT (BEAKER) (test 0 % nrgh=396) NEUTROPHILS ABSOLUTE COUNT (BEAKER) (test 5.63 K/ L 1.78-5.38 mwgg=120) LYMPHOCYTES ABSOLUTE COUNT (BEAKER) (test 0.32 K/ L 1.32-3.57 aqmy=246) MONOCYTES ABSOLUTE COUNT (BEAKER) (test hwri=979) 0.66 K/ L 0.30-0.82 EOSINOPHILS ABSOLUTE COUNT (BEAKER) (test 0.00 K/ L 0.04-0.54 luer=236) BASOPHILS ABSOLUTE COUNT (BEAKER) (test znee=165) 0.00 K/ L 0.01-0.08 IMMATURE GRANULOCYTES-RELATIVE PERCENT (BEAKER) 1 % 0-1 (test hmvm=6952) POCT-GLUCOSE [id number] 08:59:00 Test Item Value Reference Range Comments POC-GLUCOSE METER (BEAKER) 180 mg/dL 70-[address] [facility] [address] [facility] (test goxq=0871) [facility] [address] POCT-GLUCOSE [id number] 21:23:00 Test Item Value Reference Range Comments POC-GLUCOSE METER (BEAKER) 224 mg/dL 70-[address] [facility] [address] [facility] (test mqfu=2286) [facility] [address] SODIUM, RANDOM [id number] 19:24:00 Test Item Value Reference Range Comments SODIUM URINE (BEAKER) (test xbvt=866) < meq/L Reference Range: No NormalsCREATININE, RANDOM [id number] 19:22:00 Test Item Value Reference Range Comments CREATININE URINE (BEAKER) (test mbve=713) 103.7 mg/dL Reference Range: No NormalsBASIC METABOLIC [id number] 19:18:00 Test Item Value Reference Range Comments SODIUM (BEAKER) (test 127 meq/L 136-145 ikoo=723) POTASSIUM (BEAKER) (test 3.5 meq/L 3.5-5.1 hnqf=666) CHLORIDE (BEAKER) (test 102 meq/L 98-107 kpyv=341) CO2 (BEAKER) (test 15 meq/L 22-29 hzyq=413) BLOOD UREA NITROGEN 34 mg/dL 7-21 (BEAKER) (test vjvq=682) CREATININE (BEAKER) (test 1.61 mg/dL 0.57-1.25 tvxq=837) GLUCOSE RANDOM (BEAKER) 194 mg/dL 70-105 (test vftw=425) CALCIUM (BEAKER) (test 9.3 mg/dL 8.4-10.2 bdgn=743) EGFR (BEAKER) (test 45 mL/min/1.73 sq m ESTIMATED GFR IS NOT gptb=8459) ACCURATE CREATININE CLEARANCE IN PREDICTING GLOMERULAR FILTRATION RATE. ESTIMATED GFR IS NOT APPLICABLE FOR DIALYSIS PATIENTS. OSMOLALITY, [id number] 18:58:00 Test Item Value Reference Range Comments OSMOLALITY URINE (BEAKER) (test gpzs=325) 490 mOsm/kg 40-1,400 URINALYSIS W/ REFLEX URINE [id number] 18:48:00 Test Item Value Reference Range Comments COLOR (BEAKER) (test ydul=819) Yellow CLARITY (BEAKER) (test hdkt=882) Clear SPECIFIC GRAVITY UA (BEAKER) (test psoi=390) 1.016 1.001-1.035 PH UA (BEAKER) (test parw=130) 6.0 5.0-8.0 PROTEIN UA (BEAKER) (test lttj=092) Negative Negative GLUCOSE UA (BEAKER) (test meco=924) Negative Negative KETONES UA (BEAKER) (test dfoe=555) Negative Negative BILIRUBIN UA (BEAKER) (test oqks=830) Negative Negative BLOOD UA (BEAKER) (test uhej=388) Negative Negative NITRITE UA (BEAKER) (test ziut=593) Negative Negative LEUKOCYTE ESTERASE UA (BEAKER) (test usxs=535) Negative Negative UROBILINOGEN UA (BEAKER) (test racp=482) 0.2 mg/dL 0.2-1.0 RBC UA (BEAKER) (test shpt=254) < /HPF WBC UA (BEAKER) (test gmbe=181) 1 /HPF SQUAMOUS EPITHELIAL (BEAKER) (test lpho=158) < /HPF HYALINE CASTS (BEAKER) (test xpsd=605) 5 /LPF SOURCE(BEAKER) (test fclk=7965) POCT-GLUCOSE [id number] 17:31:00 Test Item Value Reference Range Comments POC-GLUCOSE METER (BEAKER) 219 mg/dL 70-110 TESTED AT [address] (test maov=6291) [place] [id number] POCT-GLUCOSE [id number] 12:14:00 Test Item Value Reference Range Comments POC-GLUCOSE METER (BEAKER) 242 mg/dL 70-110 TESTED AT [address] (test uwdh=5935) [place] [id number] POCT-GLUCOSE [id number] 09:00:00 Test Item Value Reference Range Comments POC-GLUCOSE METER (BEAKER) 259 mg/dL 70-110 TESTED AT [address] (test enui=9890) [place] [address] [id number] 06:29:00 Test Item Value Reference Range Comments PHOSPHORUS (BEAKER) (test shgf=465) 4.0 mg/dL 2.3-4.7 [id number] 06:29:00 Test Item Value Reference Range Comments MAGNESIUM (BEAKER) (test cipj=025) 1.6 mg/dL 1.6-2.6 BASIC METABOLIC [id number] 06:29:00 Test Item Value Reference Range Comments SODIUM (BEAKER) (test 125 meq/L 136-145 ywak=193) POTASSIUM (BEAKER) (test 3.9 meq/L 3.5-5.1 kywy=382) CHLORIDE (BEAKER) (test 102 meq/L 98-107 jflb=666) CO2 (BEAKER) (test 17 meq/L 22-29 qoqk=965) BLOOD UREA NITROGEN 35 mg/dL 7-21 (BEAKER) (test paru=800) CREATININE (BEAKER) (test 1.60 mg/dL 0.57-1.25 vkiy=753) GLUCOSE RANDOM (BEAKER) 162 mg/dL 70-105 (test wfau=056) CALCIUM (BEAKER) (test 8.7 mg/dL 8.4-10.2 zusm=868) EGFR (BEAKER) (test 45 mL/min/1.73 sq m ESTIMATED GFR IS NOT rwvg=8519) ACCURATE CREATININE CLEARANCE IN PREDICTING GLOMERULAR FILTRATION RATE. ESTIMATED GFR IS NOT APPLICABLE FOR DIALYSIS PATIENTS. PH, [id number] 05:47:00 Test Item Value Reference Range Comments PH VENOUS (BEAKER) (test zncr=477) 7.39 7.32-7.42 CALCIUM, [id number] 05:47:00 Test Item Value Reference Range Comments CALCIUM IONIZED (BEAKER) (test inzz=660) 1.15 mmol/L 1.12-1.27 PH, BLOOD (BEAKER) (test nnyz=1945) 7.39 CBC W/PLT COUNT & AUTO [id number] 05:22:00 Test Item Value Reference Range Comments WHITE BLOOD CELL COUNT (BEAKER) (test ewvw=647) 4.5 K/ L 3.5-10.5 RED BLOOD CELL COUNT (BEAKER) (test rlbl=001) 2.52 M/ L 4.63-6.08 HEMOGLOBIN (BEAKER) (test qgpu=174) 8.0 GM/DL 13.7-17.5 HEMATOCRIT (BEAKER) (test nyxx=385) 23.4 % 40.1-51.0 MEAN CORPUSCULAR VOLUME (BEAKER) (test pckq=122) 92.9 fL 79.0-92.2 MEAN CORPUSCULAR HEMOGLOBIN (BEAKER) (test 31.7 pg 25.7-32.2 sbxq=324) MEAN CORPUSCULAR HEMOGLOBIN CONC (BEAKER) (test 34.2 GM/DL 32.3-36.5 vgfi=548) RED CELL DISTRIBUTION WIDTH (BEAKER) (test 14.7 % 11.6-14.4 fqrc=179) PLATELET COUNT (BEAKER) (test iaod=402) 55 K/CU MM 150-450 MEAN PLATELET VOLUME (BEAKER) (test ceku=404) 9.4 fL 9.4-12.4 NUCLEATED RED BLOOD CELLS (BEAKER) (test 0 /100 WBC 0-0 qywd=392) NEUTROPHILS RELATIVE PERCENT (BEAKER) (test 82 % bzny=936) LYMPHOCYTES RELATIVE PERCENT (BEAKER) (test 9 % cbmf=855) MONOCYTES RELATIVE PERCENT (BEAKER) (test 9 % hfph=437) EOSINOPHILS RELATIVE PERCENT (BEAKER) (test 0 % loac=488) BASOPHILS RELATIVE PERCENT (BEAKER) (test 0 % doxh=676) NEUTROPHILS ABSOLUTE COUNT (BEAKER) (test 3.68 K/ L 1.78-5.38 inur=131) LYMPHOCYTES ABSOLUTE COUNT (BEAKER) (test 0.38 K/ L 1.32-3.57 siwr=261) MONOCYTES ABSOLUTE COUNT (BEAKER) (test xogo=318) 0.39 K/ L 0.30-0.82 EOSINOPHILS ABSOLUTE COUNT (BEAKER) (test 0.00 K/ L 0.04-0.54 vcyf=235) BASOPHILS ABSOLUTE COUNT (BEAKER) (test mqbn=093) 0.01 K/ L 0.01-0.08 IMMATURE GRANULOCYTES-RELATIVE PERCENT (BEAKER) 1 % 0-1 (test pzdo=0595) POCT-GLUCOSE [id number] 20:56:00 Test Item Value Reference Range Comments POC-GLUCOSE METER (BEAKER) 199 mg/dL 70-110 TESTED AT [address] (test wxgh=0985) [place] [address] POCT-GLUCOSE [id number] 17:21:00 Test Item Value Reference Range Comments POC-GLUCOSE METER (BEAKER) 184 mg/dL 70-110 TESTED AT [address] (test pgsj=9707) [place] [address] POCT-GLUCOSE [id number] 12:35:00 Test Item Value Reference Range Comments POC-GLUCOSE METER (BEAKER) 259 mg/dL 70-110 TESTED AT [place] [id number] [facility] (test wqws=1243) [facility] [address] POCT-GLUCOSE [id number] 09:15:00 Test Item Value Reference Range Comments POC-GLUCOSE METER (BEAKER) 146 mg/dL 70-110 TESTED AT [address] (test ptow=7477) [facility] [address] CALCIUM, [id number] 07:31:00 Test Item Value Reference Range Comments CALCIUM IONIZED (BEAKER) (test glfq=246) 1.16 mmol/L 1.12-1.27 PH, BLOOD (BEAKER) (test tdby=5436) 7.36 CBC W/PLT COUNT & AUTO [id number] 06:59:00 Test Item Value Reference Range Comments WHITE BLOOD CELL COUNT (BEAKER) (test bzlr=472) 5.2 K/ L 3.5-10.5 RED BLOOD CELL COUNT (BEAKER) (test wris=858) 2.47 M/ L 4.63-6.08 HEMOGLOBIN (BEAKER) (test yzpg=285) 7.8 GM/DL 13.7-17.5 HEMATOCRIT (BEAKER) (test ehxg=698) 23.5 % 40.1-51.0 MEAN CORPUSCULAR VOLUME (BEAKER) (test jqmm=648) 95.1 fL 79.0-92.2 MEAN CORPUSCULAR HEMOGLOBIN (BEAKER) (test 31.6 pg 25.7-32.2 udww=022) MEAN CORPUSCULAR HEMOGLOBIN CONC (BEAKER) (test 33.2 GM/DL 32.3-36.5 owxd=406) RED CELL DISTRIBUTION WIDTH (BEAKER) (test 14.9 % 11.6-14.4 hcip=357) PLATELET COUNT (BEAKER) (test tprx=606) 57 K/CU MM 150-450 MEAN PLATELET VOLUME (BEAKER) (test awtx=106) 9.2 fL 9.4-12.4 NUCLEATED RED BLOOD CELLS (BEAKER) (test 0 /100 WBC 0-0 hsne=308) NEUTROPHILS RELATIVE PERCENT (BEAKER) (test 69 % ykta=184) LYMPHOCYTES RELATIVE PERCENT (BEAKER) (test 10 % isbr=381) MONOCYTES RELATIVE PERCENT (BEAKER) (test 16 % ntjf=139) EOSINOPHILS RELATIVE PERCENT (BEAKER) (test 4 % gqfi=904) BASOPHILS RELATIVE PERCENT (BEAKER) (test 0 % voed=447) NEUTROPHILS ABSOLUTE COUNT (BEAKER) (test 3.57 K/ L 1.78-5.38 jvaj=887) LYMPHOCYTES ABSOLUTE COUNT (BEAKER) (test 0.53 K/ L 1.32-3.57 zdgn=161) MONOCYTES ABSOLUTE COUNT (BEAKER) (test dxiy=147) 0.82 K/ L 0.30-0.82 EOSINOPHILS ABSOLUTE COUNT (BEAKER) (test 0.18 K/ L 0.04-0.54 xafm=827) BASOPHILS ABSOLUTE COUNT (BEAKER) (test qhvy=424) 0.02 K/ L 0.01-0.08 IMMATURE GRANULOCYTES-RELATIVE PERCENT (BEAKER) 1 % 0-1 (test zrcl=1125) [id number] 06:00:00 Test Item Value Reference Range Comments PHOSPHORUS (BEAKER) (test vkqw=244) 3.6 mg/dL 2.3-4.7 [id number] 06:00:00 Test Item Value Reference Range Comments MAGNESIUM (BEAKER) (test xyab=073) 1.8 mg/dL 1.6-2.6 BASIC METABOLIC [id number] 06:00:00 Test Item Value Reference Range Comments SODIUM (BEAKER) (test 128 meq/L 136-145 ytrl=144) POTASSIUM (BEAKER) (test 3.9 meq/L 3.5-5.1 mirx=211) CHLORIDE (BEAKER) (test 104 meq/L 98-107 uvrp=842) CO2 (BEAKER) (test 17 meq/L 22-29 ckgz=120) BLOOD UREA NITROGEN 38 mg/dL 7-21 (BEAKER) (test mwvz=855) CREATININE (BEAKER) (test 1.80 mg/dL 0.57-1.25 jzqb=397) GLUCOSE RANDOM (BEAKER) 128 mg/dL 70-105 (test opym=117) CALCIUM (BEAKER) (test 8.9 mg/dL 8.4-10.2 knqi=221) EGFR (BEAKER) (test 40 mL/min/1.73 sq m ESTIMATED GFR IS NOT rnro=0159) ACCURATE CREATININE CLEARANCE IN PREDICTING GLOMERULAR FILTRATION RATE. ESTIMATED GFR IS NOT APPLICABLE FOR DIALYSIS PATIENTS. HEPATIC FUNCTION [id number] 06:00:00 Test Item Value Reference Range Comments TOTAL PROTEIN (BEAKER) (test qlmq=001) 5.2 gm/dL 6.0-8.3 ALBUMIN (BEAKER) (test bueb=8614) 3.0 g/dL 3.5-5.0 BILIRUBIN TOTAL (BEAKER) (test nrbo=695) 1.8 mg/dL 0.2-1.2 BILIRUBIN DIRECT (BEAKER) (test prjt=951) 1.1 mg/dL 0.1-0.5 ALKALINE PHOSPHATASE (BEAKER) (test ktav=984) 96 U/L 40-150 AST (SGOT) (BEAKER) (test hkfi=598) 14 U/L 5-34 ALT (SGPT) (BEAKER) (test kkom=842) 8 U/L 6-55 LACTIC ACID, VENOUS, WHOLE [id number] 05:51:00 Test Item Value Reference Range Comments LACTATE BLOOD VENOUS (2) 1.8 mmol/L 0.5-2.2 Specimen slightly hemolyzed (BEAKER) (test qmqf=0042) [id number] 05:45:00 Test Item Value Reference Range Comments PROTIME (BEAKER) (test msxr=801) 21.8 seconds 11.7-14.7 INR (BEAKER) (test tjzj=168) 1.9 <=5.9 PARTIAL THROMBOPLASTIN TIME (BEAKER) (test 51.1 seconds 22.5-36.0 atrb=524) RECOMMENDED COUMADIN/WARFARIN INR THERAPY RANGESSTANDARD DOSE: 2.0 - 3.0 Includes: PROPHYLAXIS forvenous thrombosis, systemic embolization; TREATMENT for venous thrombosis and/or pulmonary embolus.HIGH RISK: Target INR is 2.5-3.5 for patients with mechanical heart valves.CT, [id number] 22:17:00FINAL REPORT INDICATION:Abdominal pain. COMPARISON: Ultrasound abdomen [...] defect through which protrudes two adjacent fat-and- mmkoatwgng-koahp-jlukffhgfu hernia sacs which together measure 11 cm [...] new since April 2018. Signed: [facility] Verified Date/Time: 11/12/2018 22:17:07 Reading Location: [facility] B1 [id number] Consult Reading Room 10: 17 PMU/S, [id number] 20:32:00Reason for exam:->HEShould this be performed at the bedside?->YesFINAL REPORT PROCEDURE: Ultrasound-guided paracentesis. INDICATION: Ascites. DESCRIPTION: After obtaining informed written consent, ultrasound scan of the abdomen identified ascites in the left lower quadrant. The overlying skin was prepped and draped in the usual, sterile fashion and local 1% lidocaine anesthesia was administered. A 5 Algerian catheter was advanced into the peritoneal cavity and 4100 mL of cloudy yellow fluid was removed. The catheter was removed without immediate complication. Samples were sent for analysis. IMPRESSION: Uncomplicated ultrasound-guided paracentesis with 4100 mL of fluid removed. Signed: Nataly Dupree MDReport Verified Date/Time: 11/12/2018 20:32:52 Reading Location: [address] Ultrasound Reading Room BODY FLUID CELL COUNT WITH [id number] 20:13:00 Test Item Value Reference Range Comments APPEARANCE FLUID (BEAKER) (test jmod=514) Cloudy Clear COLOR FLUID (BEAKER) (test qtxd=013) Yellow Colorless, Straw RBC FLUID (BEAKER) (test ymcg=354) 78 /cu mm <=1 ADJUSTED WBC FLUID (BEAKER) (test auqi=9226) 1355 /cu mm <=5 LINING CELLS (BEAKER) (test zdxn=8558) 0 /cu mm <=1 NEUTROPHILS FLUID (BEAKER) (test bwfu=0429) 84 % LYMPHS FLUID (BEAKER) (test wxkl=696) 4 % MONO/MACROPHAGE FLUID (BEAKER) (test ydjp=177) 12 % EOSINOPHILS FLUID (BEAKER) (test cpvh=791) 0 % BASO FLUID (BEAKER) (test mfay=930) 0 % CONTAINER BODY FLUID (BEAKER) (test jzvd=5957) EDTA Tube LACTIC ACID, VENOUS, WHOLE [id number] 18:05:00 Test Item Value Reference Range Comments LACTATE BLOOD VENOUS (2) (BEAKER) (test 2.0 mmol/L 0.5-2.2 cgbh=9170) Draw after Albumin infusionPOCT-GLUCOSE [id number] 17:58:00 Test Item Value Reference Range Comments POC-GLUCOSE METER (BEAKER) 185 mg/dL 70-110 TESTED AT [address] (test qiie=6697) [facility] [address] POCT-GLUCOSE [id number] 17:36:00 Test Item Value Reference Range Comments POC-GLUCOSE METER (BEAKER) 201 mg/dL 70-110 TESTED AT [address] (test dgby=8818) [facility] [address] U/S, ABDOMINAL, [id number] 16:40:00Abdomen limited area? Add comment if clarification [...] Verified Date/Time: 11/12/2018 16:40 :20 Reading Location: [address] Ultrasound Reading Room U/S, DUPLEX, [id number] 16:40:00Please complete doppler for hepatic vasculatureReason [...] 3.Cholelithiasis without acute cholecystitis. Signed: Nataly Dupree [facility] Verified Date/Time: 11/12/2018 16:40:20 Reading Location: [address] Ultrasound Reading Room SODIUM, RANDOM [id number] 16:29:00 Test Item Value Reference Range Comments SODIUM URINE (BEAKER) (test jpjq=251) < meq/L Reference Range: No NormalsCREATININE, RANDOM [id number] 16:29:00 Test Item Value Reference Range Comments CREATININE URINE (BEAKER) (test fxet=910) 237.3 mg/dL Reference Range: No NormalsPROTEIN, RANDOM [id number] 16:25:00 Test Item Value Reference Range Comments PROTEIN, URINE (BEAKER) (test wkrm=3103) 15 mg/dL 0-14 OSMOLALITY, [id number] 15:33:00 Test Item Value Reference Range Comments OSMOLALITY URINE (BEAKER) (test nydv=189) 575 mOsm/kg 40-1,400 URINALYSIS W/ REFLEX URINE [id number] 15:30:00 Test Item Value Reference Range Comments COLOR (BEAKER) (test hhps=982) Yellow CLARITY (BEAKER) (test wljr=924) Clear SPECIFIC GRAVITY UA (BEAKER) (test lwdi=896) 1.020 1.001-1.035 PH UA (BEAKER) (test jaqe=601) 5.5 5.0-8.0 PROTEIN UA (BEAKER) (test bnxf=501) 10 mg/dL Negative GLUCOSE UA (BEAKER) (test juuf=197) Negative Negative KETONES UA (BEAKER) (test hqnd=678) Negative Negative BILIRUBIN UA (BEAKER) (test iwim=521) Negative Negative BLOOD UA (BEAKER) (test khvk=091) Small Negative NITRITE UA (BEAKER) (test udub=095) Negative Negative LEUKOCYTE ESTERASE UA (BEAKER) (test tknw=578) Negative Negative UROBILINOGEN UA (BEAKER) (test xaxm=001) 0.2 mg/dL 0.2-1.0 RBC UA (BEAKER) (test ogsa=414) 5 /HPF WBC UA (BEAKER) (test resa=237) 3 /HPF HYALINE CASTS (BEAKER) (test ssje=076) 7 /LPF SOURCE(BEAKER) (test xiwf=1094) LACTIC ACID, VENOUS, WHOLE [id number] 14:42:00 Test Item Value Reference Range Comments LACTATE BLOOD VENOUS (2) (BEAKER) (test 3.2 mmol/L 0.5-2.2 mvbw=7526) RAD, ABDOMEN/KUB, 1 VIEW [id number] 09:14:00Reason for exam:->persistent vomitignFINAL REPORT TECHNIQUE: Supine [...] Navarro Verified Date/Time: 11/12/2018 09:14:36 Reading Location: [facility] Radiology Reading Room POCT-GLUCOSE [id number] 07:59:00 Test Item Value Reference Range Comments POC-GLUCOSE METER (BEAKER) 126 mg/dL 70-[address] [facility] [address] (test qlol=8553) [facility] [address] [id number] 05:20:00 Test Item Value Reference Range Comments MAGNESIUM (BEAKER) (test qxrm=900) 1.9 mg/dL 1.6-2.6 BASIC METABOLIC [id number] 05:20:00 Test Item Value Reference Range Comments SODIUM (BEAKER) (test 132 meq/L 136-145 qmof=148) POTASSIUM (BEAKER) (test 4.4 meq/L 3.5-5.1 aksz=885) CHLORIDE (BEAKER) (test 108 meq/L 98-107 bxct=093) CO2 (BEAKER) (test 20 meq/L 22-29 rmhf=499) BLOOD UREA NITROGEN 41 mg/dL 7-21 (BEAKER) (test efye=043) CREATININE (BEAKER) (test 1.91 mg/dL 0.57-1.25 nktw=621) GLUCOSE RANDOM (BEAKER) 127 mg/dL 70-105 (test rvoe=429) CALCIUM (BEAKER) (test 9.0 mg/dL 8.4-10.2 nzsu=264) EGFR (BEAKER) (test 37 mL/min/1.73 sq m ESTIMATED GFR IS NOT svvg=3547) ACCURATE CREATININE CLEARANCE IN PREDICTING GLOMERULAR FILTRATION RATE. ESTIMATED GFR IS NOT APPLICABLE FOR DIALYSIS PATIENTS. HEPATIC FUNCTION [id number] 05:20:00 Test Item Value Reference Range Comments TOTAL PROTEIN (BEAKER) (test qgar=757) 5.4 gm/dL 6.0-8.3 ALBUMIN (BEAKER) (test cjys=9133) 2.7 g/dL 3.5-5.0 BILIRUBIN TOTAL (BEAKER) (test ckga=937) 2.0 mg/dL 0.2-1.2 BILIRUBIN DIRECT (BEAKER) (test ocqz=282) 1.2 mg/dL 0.1-0.5 ALKALINE PHOSPHATASE (BEAKER) (test bgqm=655) 121 U/L 40-150 AST (SGOT) (BEAKER) (test gzrp=540) 18 U/L 5-34 ALT (SGPT) (BEAKER) (test wmwp=877) 10 U/L 6-55 [id number] 05:05:00 Test Item Value Reference Range Comments PROTIME (BEAKER) (test ubnn=375) 20.0 seconds 11.7-14.7 INR (BEAKER) (test qdys=909) 1.7 <=5.9 PARTIAL THROMBOPLASTIN TIME (BEAKER) (test 42.4 seconds 22.5-36.0 hlbj=172) RECOMMENDED COUMADIN/WARFARIN INR THERAPY RANGESSTANDARD DOSE: 2.0 - 3.0 Includes: PROPHYLAXIS forvenous thrombosis, systemic embolization; TREATMENT for venous thrombosis and/or pulmonary embolus.HIGH RISK: Target INR is 2.5-3.5 for patients with mechanical heart valves.PROTHROMBIN [id number] 05:04: 00 Test Item Value Reference Range Comments PROTIME (BEAKER) (test smih=786) 20.0 seconds 11.7-14.7 INR (BEAKER) (test zmvk=236) 1.7 <=5.9 RECOMMENDED COUMADIN/WARFARIN INR THERAPY RANGESSTANDARD DOSE: 2.0 - 3.0 Includes: PROPHYLAXIS forvenous thrombosis, systemic embolization; TREATMENT for venous thrombosis and/or pulmonary embolus.HIGH RISK: Target INR is 2.5-3.5 for patients with mechanical heart valves.POCT-GLUCOSE [id number] 20:49:00 Test Item Value Reference Range Comments POC-GLUCOSE METER (BEAKER) 159 mg/dL 70-110 TESTED AT [address] (test lhyc=3821) [facility] [address] RAD, CHEST, 1 VIEW, NON [id number] 17:43:00Reason for exam:->evaluate for pnaShould this be [...] Verified Date/Time: 11/11/2018 17: 43:24 Reading Location: [facility] B1 [id number] Consult Reading Room [id number] 02:29: 00 Test Item Value Reference Range Comments PROTIME (BEAKER) (test ddrb=666) 19.1 seconds 11.7-14.7 INR (BEAKER) (test idil=696) 1.6 <=5.9 PARTIAL THROMBOPLASTIN TIME (BEAKER) (test 42.2 seconds 22.5-36.0 zdrx=032) RECOMMENDED COUMADIN/WARFARIN INR THERAPY RANGESSTANDARD DOSE: 2.0 - 3.0 Includes: PROPHYLAXIS forvenous thrombosis, systemic embolization; TREATMENT for venous thrombosis and/or pulmonary embolus.HIGH RISK: Target INR is 2.5-3.5 for patients with mechanical heart valves.[id number] 02:05:00 Test Item Value Reference Range Comments MAGNESIUM (BEAKER) (test jhoe=716) 2.2 mg/dL 1.6-2.6 BASIC METABOLIC [id number] 02:05:00 Test Item Value Reference Range Comments SODIUM (BEAKER) (test 130 meq/L 136-145 mlje=982) POTASSIUM (BEAKER) (test 4.8 meq/L 3.5-5.1 fwrn=373) CHLORIDE (BEAKER) (test 105 meq/L 98-107 lcav=654) CO2 (BEAKER) (test 20 meq/L 22-29 tmsg=014) BLOOD UREA NITROGEN 42 mg/dL 7-21 (BEAKER) (test vgts=984) CREATININE (BEAKER) (test 1.89 mg/dL 0.57-1.25 kyct=314) GLUCOSE RANDOM (BEAKER) 114 mg/dL 70-105 (test mhfk=659) CALCIUM (BEAKER) (test 9.2 mg/dL 8.4-10.2 tytp=719) EGFR (BEAKER) (test 37 mL/min/1.73 sq m ESTIMATED GFR IS NOT jyhb=2526) ACCURATE CREATININE CLEARANCE IN PREDICTING GLOMERULAR FILTRATION RATE. ESTIMATED GFR IS NOT APPLICABLE FOR DIALYSIS PATIENTS. Specimen slightly ictericHEPATIC FUNCTION [id number] 02:05:00 Test Item Value Reference Range Comments TOTAL PROTEIN (BEAKER) (test pngy=026) 5.5 gm/dL 6.0-8.3 ALBUMIN (BEAKER) (test dnsj=2558) 2.8 g/dL 3.5-5.0 BILIRUBIN TOTAL (BEAKER) (test cfij=005) 2.2 mg/dL 0.2-1.2 BILIRUBIN DIRECT (BEAKER) (test qkag=658) 1.3 mg/dL 0.1-0.5 ALKALINE PHOSPHATASE (BEAKER) (test dgbj=496) 125 U/L 40-150 AST (SGOT) (BEAKER) (test crzm=215) 18 U/L 5-34 ALT (SGPT) (BEAKER) (test auth=950) 10 U/L 6-55 Specimen slightly [id number] 01:56:00 Test Item Value Reference Range Comments AMMONIA (BEAKER) (test ighs=694) 74 mol/L 18-72 CBC W/PLT COUNT & AUTO [id number] 01:41:00 Test Item Value Reference Range Comments WHITE BLOOD CELL COUNT (BEAKER) (test ucaq=069) 4.6 K/ L 3.5-10.5 RED BLOOD CELL COUNT (BEAKER) (test judy=475) 2.69 M/ L 4.63-6.08 HEMOGLOBIN (BEAKER) (test fmwk=831) 8.7 GM/DL 13.7-17.5 HEMATOCRIT (BEAKER) (test bweg=477) 25.0 % 40.1-51.0 MEAN CORPUSCULAR VOLUME (BEAKER) (test gnur=124) 92.9 fL 79.0-92.2 MEAN CORPUSCULAR HEMOGLOBIN (BEAKER) (test 32.3 pg 25.7-32.2 qiey=719) MEAN CORPUSCULAR HEMOGLOBIN CONC (BEAKER) (test 34.8 GM/DL 32.3-36.5 ysll=448) RED CELL DISTRIBUTION WIDTH (BEAKER) (test 15.0 % 11.6-14.4 ymhc=795) PLATELET COUNT (BEAKER) (test cdbp=709) 63 K/CU MM 150-450 MEAN PLATELET VOLUME (BEAKER) (test awmg=091) 9.1 fL 9.4-12.4 NUCLEATED RED BLOOD CELLS (BEAKER) (test 0 /100 WBC 0-0 ncfo=295) NEUTROPHILS RELATIVE PERCENT (BEAKER) (test 65 % ubpz=851) LYMPHOCYTES RELATIVE PERCENT (BEAKER) (test 15 % pntl=682) MONOCYTES RELATIVE PERCENT (BEAKER) (test 15 % kyvw=193) EOSINOPHILS RELATIVE PERCENT (BEAKER) (test 4 % zyxw=089) BASOPHILS RELATIVE PERCENT (BEAKER) (test 0 % fmuk=603) NEUTROPHILS ABSOLUTE COUNT (BEAKER) (test 2.97 K/ L 1.78-5.38 jpoc=155) LYMPHOCYTES ABSOLUTE COUNT (BEAKER) (test 0.67 K/ L 1.32-3.57 buvx=900) MONOCYTES ABSOLUTE COUNT (BEAKER) (test lpcs=971) 0.67 K/ L 0.30-0.82 EOSINOPHILS ABSOLUTE COUNT (BEAKER) (test 0.19 K/ L 0.04-0.54 qtii=341) BASOPHILS ABSOLUTE COUNT (BEAKER) (test pybk=523) 0.01 K/ L 0.01-0.08 IMMATURE GRANULOCYTES-RELATIVE PERCENT (BEAKER) 1 % 0-1 (test tevq=7886) BODY FLUID CULTURE + GRAM [id number] 09:32:00 Test Item Value Reference Range Comments CULTURE (BEAKER) (test bxke=5603) No growth GRAM STAIN RESULT (BEAKER) (test No WBCs yijh=0713) GRAM STAIN RESULT (BEAKER) (test No organisms seen nljh=18307) POCT-GLUCOSE [id number] 07:52:00 Test Item Value Reference Range Comments POC-GLUCOSE METER (BEAKER) 115 mg/dL 70-[address] [facility] [address] [facility] (test syvu=1462) [facility] [address] [id number] 05:18:00 Test Item Value Reference Range Comments MAGNESIUM (BEAKER) (test ivda=195) 1.9 mg/dL 1.6-2.6 COMPREHENSIVE METABOLIC [id number] 05:18:00 Test Item Value Reference Range Comments TOTAL PROTEIN (BEAKER) 5.2 gm/dL 6.0-8.3 (test qnhz=734) ALBUMIN (BEAKER) (test 3.4 g/dL 3.5-5.0 izkh=3009) ALKALINE PHOSPHATASE 113 U/L 40-150 (BEAKER) (test sqmu=201) BILIRUBIN TOTAL (BEAKER) 2.9 mg/dL 0.2-1.2 (test hiyb=469) SODIUM (BEAKER) (test 131 meq/L 136-145 jgzq=724) POTASSIUM (BEAKER) (test 4.0 meq/L 3.5-5.1 kvsr=023) CHLORIDE (BEAKER) (test 101 meq/L 98-107 wdmf=760) CO2 (BEAKER) (test 21 meq/L 22-29 ngix=955) BLOOD UREA NITROGEN 28 mg/dL 7-21 (BEAKER) (test sunn=934) CREATININE (BEAKER) (test 1.65 mg/dL 0.57-1.25 fvvk=250) GLUCOSE RANDOM (BEAKER) 122 mg/dL 70-105 (test tnua=930) CALCIUM (BEAKER) (test 9.3 mg/dL 8.4-10.2 nlto=787) AST (SGOT) (BEAKER) (test 15 U/L 5-34 snwl=402) ALT (SGPT) (BEAKER) (test 8 U/L 6-55 zlcb=982) EGFR (BEAKER) (test 44 mL/min/1.73 sq m ESTIMATED GFR IS NOT wuej=8948) ACCURATE CREATININE CLEARANCE IN PREDICTING GLOMERULAR FILTRATION RATE. ESTIMATED GFR IS NOT APPLICABLE FOR DIALYSIS PATIENTS. Specimen slightly ictericPROTHROMBIN TIME/[id number] 04:48:00 Test Item Value Reference Range Comments PROTIME (BEAKER) (test mcej=751) 20.9 seconds 11.7-14.7 INR (BEAKER) (test jpic=271) 1.8 <=5.9 RECOMMENDED COUMADIN/WARFARIN INR THERAPY RANGESSTANDARD DOSE: 2.0 - 3.0 Includes: PROPHYLAXIS forvenous thrombosis, systemic embolization; TREATMENT for venous thrombosis and/or pulmonary embolus.HIGH RISK: Target INR is 2.5-3.5 for patients with mechanical heart valves.CBC W/PLT COUNT & AUTO [id number] 04:45:00 Test Item Value Reference Range Comments WHITE BLOOD CELL COUNT (BEAKER) (test swxp=639) 3.4 K/ L 3.5-10.5 RED BLOOD CELL COUNT (BEAKER) (test hxpv=169) 2.55 M/ L 4.63-6.08 HEMOGLOBIN (BEAKER) (test awag=268) 8.1 GM/DL 13.7-17.5 HEMATOCRIT (BEAKER) (test uhvu=584) 24.0 % 40.1-51.0 MEAN CORPUSCULAR VOLUME (BEAKER) (test xjuz=047) 94.1 fL 79.0-92.2 MEAN CORPUSCULAR HEMOGLOBIN (BEAKER) (test 31.8 pg 25.7-32.2 kyev=072) MEAN CORPUSCULAR HEMOGLOBIN CONC (BEAKER) (test 33.8 GM/DL 32.3-36.5 dxbs=595) RED CELL DISTRIBUTION WIDTH (BEAKER) (test 15.8 % 11.6-14.4 vefx=555) PLATELET COUNT (BEAKER) (test chhr=789) 41 K/CU MM 150-450 MEAN PLATELET VOLUME (BEAKER) (test ctxf=269) 10.0 fL 9.4-12.4 NUCLEATED RED BLOOD CELLS (BEAKER) (test 0 /100 WBC 0-0 vgwx=016) NEUTROPHILS RELATIVE PERCENT (BEAKER) (test 63 % ctrq=637) LYMPHOCYTES RELATIVE PERCENT (BEAKER) (test 19 % hwvg=670) MONOCYTES RELATIVE PERCENT (BEAKER) (test 16 % vvyv=580) EOSINOPHILS RELATIVE PERCENT (BEAKER) (test 2 % mceb=700) BASOPHILS RELATIVE PERCENT (BEAKER) (test 0 % snor=461) NEUTROPHILS ABSOLUTE COUNT (BEAKER) (test 2.13 K/ L 1.78-5.38 lmdj=780) LYMPHOCYTES ABSOLUTE COUNT (BEAKER) (test 0.62 K/ L 1.32-3.57 frno=515) MONOCYTES ABSOLUTE COUNT (BEAKER) (test vqjj=903) 0.52 K/ L 0.30-0.82 EOSINOPHILS ABSOLUTE COUNT (BEAKER) (test 0.08 K/ L 0.04-0.54 zsub=407) BASOPHILS ABSOLUTE COUNT (BEAKER) (test aesr=689) 0.00 K/ L 0.01-0.08 IMMATURE GRANULOCYTES-RELATIVE PERCENT (BEAKER) 0 % 0-1 (test owrl=6621) POCT-GLUCOSE [id number] 21:35:00 Test Item Value Reference Range Comments POC-GLUCOSE METER (BEAKER) 215 mg/dL 70-[address] [facility] [address] [facility] (test xqsu=4034) [facility] [address] POCT-GLUCOSE [id number] 18:17:00 Test Item Value Reference Range Comments POC-GLUCOSE METER (BEAKER) 149 mg/dL 70-[address] [facility] [address] [facility] (test lfac=1940) [facility] [address] COMPREHENSIVE METABOLIC [id number] 07:34:00 Test Item Value Reference Range Comments TOTAL PROTEIN (BEAKER) 4.7 gm/dL 6.0-8.3 Specimen slightly (test xqfq=844) hemolyzed ALBUMIN (BEAKER) (test 3.0 g/dL 3.5-5.0 Specimen slightly njyv=4127) hemolyzed ALKALINE PHOSPHATASE 107 U/L 40-150 (BEAKER) (test tisw=388) BILIRUBIN TOTAL (BEAKER) 3.1 mg/dL 0.2-1.2 Specimen slightly (test qyhd=400) hemolyzed SODIUM (BEAKER) (test 125 meq/L 136-145 ubln=633) POTASSIUM (BEAKER) (test 4.9 meq/L 3.5-5.1 Specimen slightly gnww=654) hemolyzed CHLORIDE (BEAKER) (test 96 meq/L 98-107 cpbj=484) CO2 (BEAKER) (test 24 meq/L 22-29 vfzb=005) BLOOD UREA NITROGEN 30 mg/dL 7-21 (BEAKER) (test bixu=579) CREATININE (BEAKER) (test 1.61 mg/dL 0.57-1.25 Specimen slightly cfli=112) hemolyzed GLUCOSE RANDOM (BEAKER) 127 mg/dL 70-105 (test ksle=331) CALCIUM (BEAKER) (test 8.6 mg/dL 8.4-10.2 erwn=230) AST (SGOT) (BEAKER) (test 17 U/L 5-34 Specimen slightly zilb=763) hemolyzed ALT (SGPT) (BEAKER) (test < U/L 6-55 Specimen slightly iepy=783) hemolyzed EGFR (BEAKER) (test 45 mL/min/1.73 sq m ESTIMATED GFR IS NOT ziqc=7596) ACCURATE CREATININE CLEARANCE IN PREDICTING GLOMERULAR FILTRATION RATE. ESTIMATED GFR IS NOT APPLICABLE FOR DIALYSIS PATIENTS. Specimen slightly [id number] 06:49:00 Test Item Value Reference Range Comments PHOSPHORUS (BEAKER) (test iydv=788) 3.0 mg/dL 2.3-4.7 [id number] 06:49:00 Test Item Value Reference Range Comments MAGNESIUM (BEAKER) (test mnrd=945) 2.0 mg/dL 1.6-2.6 PROTHROMBIN TIME/[id number] 06:39:00 Test Item Value Reference Range Comments PROTIME (BEAKER) (test njjf=516) 23.0 seconds 11.7-14.7 INR (BEAKER) (test waki=191) 2.0 <=5.9 RECOMMENDED COUMADIN/WARFARIN INR THERAPY RANGESSTANDARD DOSE: 2.0 - 3.0 Includes: PROPHYLAXIS forvenous thrombosis, systemic embolization; TREATMENT for venous thrombosis and/or pulmonary embolus.HIGH RISK: Target INR is 2.5-3.5 for patients with mechanical heart valves.CBC W/PLT COUNT & AUTO [id number] 06:37:00 Test Item Value Reference Range Comments WHITE BLOOD CELL COUNT (BEAKER) (test qsde=321) 3.3 K/ L 3.5-10.5 RED BLOOD CELL COUNT (BEAKER) (test dpcu=713) 2.43 M/ L 4.63-6.08 HEMOGLOBIN (BEAKER) (test sapx=347) 7.8 GM/DL 13.7-17.5 HEMATOCRIT (BEAKER) (test hlun=464) 22.7 % 40.1-51.0 MEAN CORPUSCULAR VOLUME (BEAKER) (test rftr=679) 93.4 fL 79.0-92.2 MEAN CORPUSCULAR HEMOGLOBIN (BEAKER) (test 32.1 pg 25.7-32.2 qvdh=714) MEAN CORPUSCULAR HEMOGLOBIN CONC (BEAKER) (test 34.4 GM/DL 32.3-36.5 ttys=954) RED CELL DISTRIBUTION WIDTH (BEAKER) (test 15.7 % 11.6-14.4 hfrv=491) PLATELET COUNT (BEAKER) (test tkzr=395) 37 K/CU MM 150-450 MEAN PLATELET VOLUME (BEAKER) (test avon=212) 9.6 fL 9.4-12.4 NUCLEATED RED BLOOD CELLS (BEAKER) (test 0 /100 WBC 0-0 pdms=580) NEUTROPHILS RELATIVE PERCENT (BEAKER) (test 70 % mukb=467) LYMPHOCYTES RELATIVE PERCENT (BEAKER) (test 16 % fatw=851) MONOCYTES RELATIVE PERCENT (BEAKER) (test 11 % aovm=202) EOSINOPHILS RELATIVE PERCENT (BEAKER) (test 2 % cftq=126) BASOPHILS RELATIVE PERCENT (BEAKER) (test 0 % ywbk=647) NEUTROPHILS ABSOLUTE COUNT (BEAKER) (test 2.29 K/ L 1.78-5.38 sxkq=387) LYMPHOCYTES ABSOLUTE COUNT (BEAKER) (test 0.51 K/ L 1.32-3.57 xpsh=209) MONOCYTES ABSOLUTE COUNT (BEAKER) (test eqze=627) 0.37 K/ L 0.30-0.82 EOSINOPHILS ABSOLUTE COUNT (BEAKER) (test 0.07 K/ L 0.04-0.54 zbqm=485) BASOPHILS ABSOLUTE COUNT (BEAKER) (test juse=214) 0.01 K/ L 0.01-0.08 IMMATURE GRANULOCYTES-RELATIVE PERCENT (BEAKER) 0 % 0-1 (test whkc=5767) CALCIUM, [id number] 06:36:00 Test Item Value Reference Range Comments CALCIUM IONIZED (BEAKER) (test nufa=796) 1.00 mmol/L 1.12-1.27 PH, BLOOD (BEAKER) (test mhks=0823) 7.53 POCT-GLUCOSE [id number] 22:31:00 Test Item Value Reference Range Comments POC-GLUCOSE METER (BEAKER) 185 mg/dL 70-110 TESTED AT [address] (test rkaf=4483) [facility] [address] POCT-GLUCOSE [id number] 16:03:00 Test Item Value Reference Range Comments POC-GLUCOSE METER (BEAKER) 166 mg/dL 70-110 TESTED AT [address] (test dqdx=1020) [facility] [address] POCT-GLUCOSE [id number] 12:05:00 Test Item Value Reference Range Comments POC-GLUCOSE METER (BEAKER) 175 mg/dL 70-110 TESTED AT [address] (test rofe=1715) [facility] [address] POCT-GLUCOSE [id number] 08:02:00 Test Item Value Reference Range Comments POC-GLUCOSE METER (BEAKER) 162 mg/dL 70-[address] [facility] [address] (test ebat=7528) [place] [address] [id number] 03:52:00 Test Item Value Reference Range Comments MAGNESIUM (BEAKER) (test 2.1 mg/dL 1.6-2.6 Specimen slightly hemolyzed fbpf=647) [id number] 03:52:00 Test Item Value Reference Range Comments PHOSPHORUS (BEAKER) (test 3.0 mg/dL 2.3-4.7 Specimen slightly hemolyzed kjrr=943) COMPREHENSIVE METABOLIC [id number] 03:52:00 Test Item Value Reference Range Comments TOTAL PROTEIN (BEAKER) 4.9 gm/dL 6.0-8.3 Specimen slightly (test dhzn=511) hemolyzed ALBUMIN (BEAKER) (test 3.2 g/dL 3.5-5.0 Specimen slightly qulh=2751) hemolyzed ALKALINE PHOSPHATASE 109 U/L 40-150 (BEAKER) (test btma=442) BILIRUBIN TOTAL (BEAKER) 2.7 mg/dL 0.2-1.2 Specimen slightly (test nfep=390) hemolyzed SODIUM (BEAKER) (test 125 meq/L 136-145 spld=013) POTASSIUM (BEAKER) (test 4.7 meq/L 3.5-5.1 Specimen slightly opwf=432) hemolyzed CHLORIDE (BEAKER) (test 96 meq/L 98-107 towr=421) CO2 (BEAKER) (test 23 meq/L 22-29 xtvr=443) BLOOD UREA NITROGEN 27 mg/dL 7-21 (BEAKER) (test yytk=743) CREATININE (BEAKER) (test 1.86 mg/dL 0.57-1.25 Specimen slightly jtdu=953) hemolyzed GLUCOSE RANDOM (BEAKER) 164 mg/dL 70-105 (test xfkb=467) CALCIUM (BEAKER) (test 8.4 mg/dL 8.4-10.2 ozqx=227) AST (SGOT) (BEAKER) (test 17 U/L 5-34 Specimen slightly muoz=804) hemolyzed ALT (SGPT) (BEAKER) (test 6 U/L 6-55 Specimen slightly iiui=236) hemolyzed EGFR (BEAKER) (test 38 mL/min/1.73 sq m ESTIMATED GFR IS NOT beso=3397) ACCURATE CREATININE CLEARANCE IN PREDICTING GLOMERULAR FILTRATION RATE. ESTIMATED GFR IS NOT APPLICABLE FOR DIALYSIS PATIENTS. Specimen slightly ictericCALCIUM, [id number] 03:13:00 Test Item Value Reference Range Comments CALCIUM IONIZED (BEAKER) (test cnbh=803) 0.94 mmol/L 1.12-1.27 PH, BLOOD (BEAKER) (test ugvv=2419) 7.55 PROTHROMBIN [id number] 03:10:00 Test Item Value Reference Range Comments PROTIME (BEAKER) (test wuxk=093) 22.6 seconds 11.7-14.7 INR (BEAKER) (test aysx=536) 2.0 <=5.9 RECOMMENDED COUMADIN/WARFARIN INR THERAPY RANGESSTANDARD DOSE: 2.0 - 3.0 Includes: PROPHYLAXIS forvenous thrombosis, systemic embolization; TREATMENT for venous thrombosis and/or pulmonary embolus.HIGH RISK: Target INR is 2.5-3.5 for patients with mechanical heart valves.CBC W/PLT COUNT & AUTO [id number] 03:03:00 Test Item Value Reference Range Comments WHITE BLOOD CELL COUNT (BEAKER) (test vdxp=020) 3.4 K/ L 3.5-10.5 RED BLOOD CELL COUNT (BEAKER) (test nfwv=006) 2.46 M/ L 4.63-6.08 HEMOGLOBIN (BEAKER) (test znbl=952) 7.8 GM/DL 13.7-17.5 HEMATOCRIT (BEAKER) (test gvld=692) 23.5 % 40.1-51.0 MEAN CORPUSCULAR VOLUME (BEAKER) (test onfk=568) 95.5 fL 79.0-92.2 MEAN CORPUSCULAR HEMOGLOBIN (BEAKER) (test 31.7 pg 25.7-32.2 ggjt=585) MEAN CORPUSCULAR HEMOGLOBIN CONC (BEAKER) (test 33.2 GM/DL 32.3-36.5 plms=500) RED CELL DISTRIBUTION WIDTH (BEAKER) (test 15.6 % 11.6-14.4 cczu=264) PLATELET COUNT (BEAKER) (test udkx=924) 44 K/CU MM 150-450 MEAN PLATELET VOLUME (BEAKER) (test flfq=411) 10.6 fL 9.4-12.4 NUCLEATED RED BLOOD CELLS (BEAKER) (test 0 /100 WBC 0-0 tmxa=399) NEUTROPHILS RELATIVE PERCENT (BEAKER) (test 79 % jamy=150) LYMPHOCYTES RELATIVE PERCENT (BEAKER) (test 12 % evlt=665) MONOCYTES RELATIVE PERCENT (BEAKER) (test 8 % tqir=523) EOSINOPHILS RELATIVE PERCENT (BEAKER) (test 0 % cbgd=411) BASOPHILS RELATIVE PERCENT (BEAKER) (test 0 % cxic=274) NEUTROPHILS ABSOLUTE COUNT (BEAKER) (test 2.67 K/ L 1.78-5.38 xgvc=097) LYMPHOCYTES ABSOLUTE COUNT (BEAKER) (test 0.41 K/ L 1.32-3.57 jotq=168) MONOCYTES ABSOLUTE COUNT (BEAKER) (test hwfw=084) 0.27 K/ L 0.30-0.82 EOSINOPHILS ABSOLUTE COUNT (BEAKER) (test 0.01 K/ L 0.04-0.54 yysa=806) BASOPHILS ABSOLUTE COUNT (BEAKER) (test czvc=173) 0.01 K/ L 0.01-0.08 IMMATURE GRANULOCYTES-RELATIVE PERCENT (BEAKER) 0 % 0-1 (test ccic=3019) POCT-GLUCOSE [id number] 22:50:00 Test Item Value Reference Range Comments POC-GLUCOSE METER (BEAKER) 199 mg/dL 70-[address] [facility] [address] [facility] (test cvva=8898) [facility] [address] BODY FLUID CELL COUNT WITH [id number] 21:09:00 Test Item Value Reference Range Comments APPEARANCE FLUID (BEAKER) (test djwo=549) Clear Clear COLOR FLUID (BEAKER) (test ptdv=956) Yellow Colorless, Straw RBC FLUID (BEAKER) (test nerd=608) 140 /cu mm <=1 ADJUSTED WBC FLUID (BEAKER) (test ycez=9166) 70 /cu mm <=5 LINING CELLS (BEAKER) (test hmkr=7281) 0 /cu mm <=1 NEUTROPHILS FLUID (BEAKER) (test zdif=7398) 5 % LYMPHS FLUID (BEAKER) (test jado=907) 18 % MONO/MACROPHAGE FLUID (BEAKER) (test vhep=923) 77 % EOSINOPHILS FLUID (BEAKER) (test hstu=047) 0 % BASO FLUID (BEAKER) (test xrgr=852) 0 % CONTAINER BODY FLUID (BEAKER) (test pvks=9926) EDTA Tube CORTISOL,60 [id number] 20:10:00 Test Item Value Reference Range Comments CORTISOL BASELINE NETWORKED (BEAKER) (test 5.6 mcg/dL jkzj=0329) CORTISOL 30 MINUTE NETWORKED (BEAKER) (test 13.7 mcg/dL eiwq=9246) CORTISOL, 60 MINUTE (BEAKER) (test pant=9866) 17.1 ug/dL ACTH STIMULATION TEST INTERPRETATION GUIDELINES(Synonyms: [...] study by Mindy et al (NEVAEH 2000,283( 8):8698-45), the ACTH Stimulation Test provides important prognostic [...] serum cortisollevel 60 minutes after cosyntropin administration.CORTISOL,30 [id number] 19:45:00 Test Item Value Reference Range Comments CORTISOL BASELINE NETWORKED (BEAKER) (test 5.6 mcg/dL eaxg=2339) CORTISOL, 30 MINUTE (BEAKER) (test vgcx=0654) 13.7 ug/dL ACTH STIMULATION TEST INTERPRETATION GUIDELINES(Synonyms: [...] study by Mindy et al (NEVAEH 2000,283( 8):8164-94), the ACTH Stimulation Test provides important prognostic [...] serum cortisollevel 60 minutes after cosyntropin administration.U/S, [id number] 19:13:00Reason for exam:->therapeuticFINAL REPORT PROCEDURE: Ultrasound- guided paracentesis. INDICATION: Ascites. DESCRIPTION: After obtaining informed written consent, ultrasound scan of the abdomen identified ascites in the right lower quadrant. The overlying skin was prepped and draped in the usual, sterile fashion and local 1% lidocaine anesthesia was administered. A 5 Algerian catheter was advanced into the peritoneal cavity and 6000 mL of area fluid was removed. The catheter was removed without immediate complication. Samples were sent for analysis. IMPRESSION:Uncomplicated ultrasound-guided paracentesis with 6000 mL of fluid removed. Signed: Nataly Dupree Verified Date/Time: 09/08/2018 19 :13:16 Reading Location: [facility] [id number] Ultrasound Reading Room Electronically signed by: Claudia WEAVER 09/08/2018 07:13 PMCORTISOL, [id number] 18:54:00 Test Item Value Reference Range Comments CORTISOL, BASELINE (TUNG) (test hvhk=5317) 5.6 ug/dL ACTH STIMULATION TEST INTERPRETATION GUIDELINES(Synonyms: [...] serum cortisollevel 60 minutes after cosyntropin administration.POCT-GLUCOSE [id number] 12:49:00 Test Item Value Reference Range Comments POC-GLUCOSE METER (BEAKER) 184 mg/dL 70-110 TESTED AT [address] (test pokp=8402) [facility] [address] POCT-GLUCOSE [id number] 07:56:00 Test Item Value Reference Range Comments POC-GLUCOSE METER (BEAKER) 174 mg/dL 70-110 TESTED AT [address] (test sreq=3174) [facility] [address] B-TYPE NATRIURETIC FACTOR (BNP)2018-09-08 05:20:00 Test Item Value Reference Range Comments B-TYPE NATRIURETIC PEPTIDE (BEAKER) (test 900 pg/mL 0-100 ncoe=439) [id number] 05:15:00 Test Item Value Reference Range Comments PHOSPHORUS (BEAKER) (test abxq=823) 3.2 mg/dL 2.3-4.7 [id number] 05:15:00 Test Item Value Reference Range Comments MAGNESIUM (BEAKER) (test zoqr=022) 2.1 mg/dL 1.6-2.6 COMPREHENSIVE METABOLIC [id number] 05:15:00 Test Item Value Reference Range Comments TOTAL PROTEIN (BEAKER) 4.9 gm/dL 6.0-8.3 (test kzuf=803) ALBUMIN (BEAKER) (test 3.2 g/dL 3.5-5.0 gsav=7521) ALKALINE PHOSPHATASE 109 U/L 40-150 (BEAKER) (test plna=146) BILIRUBIN TOTAL (BEAKER) 2.7 mg/dL 0.2-1.2 (test msym=688) SODIUM (BEAKER) (test 128 meq/L 136-145 pqzd=986) POTASSIUM (BEAKER) (test 3.9 meq/L 3.5-5.1 lgpv=962) CHLORIDE (BEAKER) (test 98 meq/L 98-107 wfzc=990) CO2 (BEAKER) (test 23 meq/L 22-29 wubh=976) BLOOD UREA NITROGEN 27 mg/dL 7-21 (BEAKER) (test qfid=497) CREATININE (BEAKER) (test 2.17 mg/dL 0.57-1.25 fetf=028) GLUCOSE RANDOM (BEAKER) 136 mg/dL 70-105 (test rxjj=210) CALCIUM (BEAKER) (test 8.6 mg/dL 8.4-10.2 nlef=829) AST (SGOT) (BEAKER) (test 15 U/L 5-34 uwbb=180) ALT (SGPT) (BEAKER) (test 7 U/L 6-55 ojeh=852) EGFR (BEAKER) (test 32 mL/min/1.73 sq m ESTIMATED GFR IS NOT gquj=7126) ACCURATE CREATININE CLEARANCE IN PREDICTING GLOMERULAR FILTRATION RATE. ESTIMATED GFR IS NOT APPLICABLE FOR DIALYSIS PATIENTS. Specimen slightly ictericPROTHROMBIN [id number] 05:01:00 Test Item Value Reference Range Comments PROTIME (BEAKER) (test sgsk=863) 22.0 seconds 11.7-14.7 INR (BEAKER) (test aqqc=787) 1.9 <=5.9 RECOMMENDED COUMADIN/WARFARIN INR THERAPY RANGESSTANDARD DOSE: 2.0 - 3.0 Includes: PROPHYLAXIS forvenous thrombosis, systemic embolization; TREATMENT for venous thrombosis and/or pulmonary embolus.HIGH RISK: Target INR is 2.5-3.5 for patients with mechanical heart valves.CBC W/PLT COUNT & AUTO [id number] 04:55:00 Test Item Value Reference Range Comments WHITE BLOOD CELL COUNT (BEAKER) (test uhdw=224) 4.3 K/ L 3.5-10.5 RED BLOOD CELL COUNT (BEAKER) (test gwjj=530) 2.46 M/ L 4.63-6.08 HEMOGLOBIN (BEAKER) (test lxro=819) 7.9 GM/DL 13.7-17.5 HEMATOCRIT (BEAKER) (test nxxk=580) 23.3 % 40.1-51.0 MEAN CORPUSCULAR VOLUME (BEAKER) (test qzvm=669) 94.7 fL 79.0-92.2 MEAN CORPUSCULAR HEMOGLOBIN (BEAKER) (test 32.1 pg 25.7-32.2 dyee=212) MEAN CORPUSCULAR HEMOGLOBIN CONC (BEAKER) (test 33.9 GM/DL 32.3-36.5 rvkg=585) RED CELL DISTRIBUTION WIDTH (BEAKER) (test 15.6 % 11.6-14.4 anxn=091) PLATELET COUNT (BEAKER) (test kika=954) 43 K/CU MM 150-450 MEAN PLATELET VOLUME (BEAKER) (test wcmv=807) 9.6 fL 9.4-12.4 NUCLEATED RED BLOOD CELLS (BEAKER) (test 0 /100 WBC 0-0 fqbj=705) NEUTROPHILS RELATIVE PERCENT (BEAKER) (test 63 % tpqc=230) LYMPHOCYTES RELATIVE PERCENT (BEAKER) (test 13 % wjih=098) MONOCYTES RELATIVE PERCENT (BEAKER) (test 19 % lppe=872) EOSINOPHILS RELATIVE PERCENT (BEAKER) (test 5 % krvk=687) BASOPHILS RELATIVE PERCENT (BEAKER) (test 0 % yqlw=403) NEUTROPHILS ABSOLUTE COUNT (BEAKER) (test 2.72 K/ L 1.78-5.38 iwhx=669) LYMPHOCYTES ABSOLUTE COUNT (BEAKER) (test 0.55 K/ L 1.32-3.57 fjcl=577) MONOCYTES ABSOLUTE COUNT (BEAKER) (test eqhe=992) 0.81 K/ L 0.30-0.82 EOSINOPHILS ABSOLUTE COUNT (BEAKER) (test 0.21 K/ L 0.04-0.54 rsof=578) BASOPHILS ABSOLUTE COUNT (BEAKER) (test hxvz=161) 0.01 K/ L 0.01-0.08 IMMATURE GRANULOCYTES-RELATIVE PERCENT (BEAKER) 0 % 0-1 (test btko=5474) POCT-GLUCOSE [id number] 23:33:00 Test Item Value Reference Range Comments POC-GLUCOSE METER (BEAKER) 156 mg/dL 70-[address] [facility] [address] [facility] (test rptg=2938) [facility] [address] POCT-GLUCOSE [id number] 18:09:00 Test Item Value Reference Range Comments POC-GLUCOSE METER (BEAKER) 170 mg/dL 70-[address] [facility] [address] [facility] (test ezhd=7650) [facility] [address] POCT-GLUCOSE [id number] 12:01:00 Test Item Value Reference Range Comments POC-GLUCOSE METER (BEAKER) 181 mg/dL 70-110 TESTED AT [address] (test tbhw=3459) [facility] [address] PROTHROMBIN [id number] 08:17:00 Test Item Value Reference Range Comments PROTIME (BEAKER) (test edqy=985) 21.9 seconds 11.7-14.7 INR (BEAKER) (test qxwc=764) 1.9 <=5.9 RECOMMENDED COUMADIN/WARFARIN INR THERAPY RANGESSTANDARD DOSE: 2.0 - 3.0 Includes: PROPHYLAXIS forvenous thrombosis, systemic embolization; TREATMENT for venous thrombosis and/or pulmonary embolus.HIGH RISK: Target INR is 2.5-3.5 for patients with mechanical heart valves.POCT-GLUCOSE [id number] 08:07:00 Test Item Value Reference Range Comments POC-GLUCOSE METER (BEAKER) 205 mg/dL 70-110 TESTED AT [address] (test osui=8940) [facility] [address] COMPREHENSIVE METABOLIC [id number] 07:29:00 Test Item Value Reference Range Comments TOTAL PROTEIN (BEAKER) 4.9 gm/dL 6.0-8.3 (test bdas=329) ALBUMIN (BEAKER) (test 3.3 g/dL 3.5-5.0 uziz=5452) ALKALINE PHOSPHATASE 106 U/L 40-150 (BEAKER) (test deal=163) BILIRUBIN TOTAL (BEAKER) 2.6 mg/dL 0.2-1.2 (test vhfo=135) SODIUM (BEAKER) (test 129 meq/L 136-145 krqc=063) POTASSIUM (BEAKER) (test 4.9 meq/L 3.5-5.1 mxgs=888) CHLORIDE (BEAKER) (test 98 meq/L 98-107 bghu=083) CO2 (BEAKER) (test 23 meq/L 22-29 vruv=094) BLOOD UREA NITROGEN 28 mg/dL 7-21 (BEAKER) (test ccba=821) CREATININE (BEAKER) (test 2.31 mg/dL 0.57-1.25 rkiv=132) GLUCOSE RANDOM (BEAKER) 172 mg/dL 70-105 (test zyri=992) CALCIUM (BEAKER) (test 8.5 mg/dL 8.4-10.2 csed=169) AST (SGOT) (BEAKER) (test 15 U/L 5-34 ryfo=357) ALT (SGPT) (BEAKER) (test 6 U/L 6-55 tlfr=741) EGFR (BEAKER) (test 30 mL/min/1.73 sq m ESTIMATED GFR IS NOT fohl=8726) ACCURATE CREATININE CLEARANCE IN PREDICTING GLOMERULAR FILTRATION RATE. ESTIMATED GFR IS NOT APPLICABLE FOR DIALYSIS PATIENTS. Specimen slightly ictericCBC W/PLT COUNT & AUTO [id number] 07:11 :00 Test Item Value Reference Range Comments WHITE BLOOD CELL COUNT (BEAKER) (test lnve=479) 4.5 K/ L 3.5-10.5 RED BLOOD CELL COUNT (BEAKER) (test arga=157) 2.47 M/ L 4.63-6.08 HEMOGLOBIN (BEAKER) (test ftkg=632) 7.8 GM/DL 13.7-17.5 HEMATOCRIT (BEAKER) (test nywl=041) 23.3 % 40.1-51.0 MEAN CORPUSCULAR VOLUME (BEAKER) (test uzwx=013) 94.3 fL 79.0-92.2 MEAN CORPUSCULAR HEMOGLOBIN (BEAKER) (test 31.6 pg 25.7-32.2 plnk=394) MEAN CORPUSCULAR HEMOGLOBIN CONC (BEAKER) (test 33.5 GM/DL 32.3-36.5 saac=651) RED CELL DISTRIBUTION WIDTH (BEAKER) (test 15.4 % 11.6-14.4 uwyd=065) PLATELET COUNT (BEAKER) (test amvh=200) 43 K/CU MM 150-450 MEAN PLATELET VOLUME (BEAKER) (test srdk=176) 8.7 fL 9.4-12.4 NUCLEATED RED BLOOD CELLS (BEAKER) (test 0 /100 WBC 0-0 rakd=890) NEUTROPHILS RELATIVE PERCENT (BEAKER) (test 64 % mnhg=897) LYMPHOCYTES RELATIVE PERCENT (BEAKER) (test 11 % dimd=217) MONOCYTES RELATIVE PERCENT (BEAKER) (test 20 % gcae=638) EOSINOPHILS RELATIVE PERCENT (BEAKER) (test 4 % bqwr=669) BASOPHILS RELATIVE PERCENT (BEAKER) (test 0 % gdpm=631) NEUTROPHILS ABSOLUTE COUNT (BEAKER) (test 2.86 K/ L 1.78-5.38 nmzx=559) LYMPHOCYTES ABSOLUTE COUNT (BEAKER) (test 0.49 K/ L 1.32-3.57 pmgs=091) MONOCYTES ABSOLUTE COUNT (BEAKER) (test fpiy=042) 0.90 K/ L 0.30-0.82 EOSINOPHILS ABSOLUTE COUNT (BEAKER) (test 0.18 K/ L 0.04-0.54 kusa=683) BASOPHILS ABSOLUTE COUNT (BEAKER) (test wair=400) 0.02 K/ L 0.01-0.08 IMMATURE GRANULOCYTES-RELATIVE PERCENT (BEAKER) 0 % 0-1 (test nufa=0812) POCT-GLUCOSE [id number] 22:31:00 Test Item Value Reference Range Comments POC-GLUCOSE METER (BEAKER) 161 mg/dL 70-110 TESTED AT [address] (test zgkq=9583) [place] [address] POCT-GLUCOSE [id number] 16:31:00 Test Item Value Reference Range Comments POC-GLUCOSE METER (BEAKER) 135 mg/dL 70-110 TESTED AT [address] (test ebuu=8492) [place] [address] POCT-GLUCOSE [id number] 12:16:00 Test Item Value Reference Range Comments POC-GLUCOSE METER (BEAKER) 144 mg/dL 70-110 TESTED AT [address] (test ziki=1302) [place] [address] POCT-GLUCOSE [id number] 07:53:00 Test Item Value Reference Range Comments POC-GLUCOSE METER (BEAKER) 93 mg/dL 70-110 TESTED AT [address] (test raal=7897) [place] [address] COMPREHENSIVE METABOLIC [id number] 06:55:00 Test Item Value Reference Range Comments TOTAL PROTEIN (BEAKER) 4.8 gm/dL 6.0-8.3 (test jarm=523) ALBUMIN (BEAKER) (test 3.3 g/dL 3.5-5.0 cnnm=7194) ALKALINE PHOSPHATASE 103 U/L 40-150 (BEAKER) (test bojr=879) BILIRUBIN TOTAL (BEAKER) 2.7 mg/dL 0.2-1.2 (test haiq=810) SODIUM (BEAKER) (test 125 meq/L 136-145 addw=404) POTASSIUM (BEAKER) (test 4.6 meq/L 3.5-5.1 gbss=922) CHLORIDE (BEAKER) (test 96 meq/L 98-107 wchs=171) CO2 (BEAKER) (test 22 meq/L 22-29 xpal=346) BLOOD UREA NITROGEN 30 mg/dL 7-21 (BEAKER) (test cbiv=189) CREATININE (BEAKER) (test 2.01 mg/dL 0.57-1.25 hish=654) GLUCOSE RANDOM (BEAKER) 88 mg/dL 70-105 (test kofi=511) CALCIUM (BEAKER) (test 8.5 mg/dL 8.4-10.2 hapd=476) AST (SGOT) (BEAKER) (test 17 U/L 5-34 cosz=753) ALT (SGPT) (BEAKER) (test 7 U/L 6-55 jifv=399) EGFR (BEAKER) (test 35 mL/min/1.73 sq m ESTIMATED GFR IS NOT krpp=4877) ACCURATE CREATININE CLEARANCE IN PREDICTING GLOMERULAR FILTRATION RATE. ESTIMATED GFR IS NOT APPLICABLE FOR DIALYSIS PATIENTS. Specimen slightly ictericPROTHROMBIN [id number] 06:10:00 Test Item Value Reference Range Comments PROTIME (BEAKER) (test qpcx=810) 23.2 seconds 11.7-14.7 INR (BEAKER) (test kqvx=939) 2.1 <=5.9 RECOMMENDED COUMADIN/WARFARIN INR THERAPY RANGESSTANDARD DOSE: 2.0 - 3.0 Includes: PROPHYLAXIS forvenous thrombosis, systemic embolization; TREATMENT for venous thrombosis and/or pulmonary embolus.HIGH RISK: Target INR is 2.5-3.5 for patients with mechanical heart valves.POCT-GLUCOSE [id number] 22:42:00 Test Item Value Reference Range Comments POC-GLUCOSE METER (BEAKER) 124 mg/dL 70-[address] [facility] [address] [facility] (test wdmx=2242) [facility] [address] POCT-GLUCOSE [id number] 17:04:00 Test Item Value Reference Range Comments POC-GLUCOSE METER (BEAKER) 86 mg/dL 70-[address] [facility] [address] [facility] (test vwul=6483) [facility] [address] POCT-GLUCOSE [id number] 12:08:00 Test Item Value Reference Range Comments POC-GLUCOSE METER (BEAKER) 159 mg/dL 70-[address] [facility] [address] [facility] (test ysfn=6876) [facility] [address] [id number] 08:39:00 Test Item Value Reference Range Comments PHOSPHORUS (BEAKER) (test vzue=464) 3.9 mg/dL 2.3-4.7 [id number] 08:39:00 Test Item Value Reference Range Comments MAGNESIUM (BEAKER) (test zybg=791) 2.1 mg/dL 1.6-2.6 COMPREHENSIVE METABOLIC [id number] 08:39:00 Test Item Value Reference Range Comments TOTAL PROTEIN (BEAKER) 5.2 gm/dL 6.0-8.3 (test gsrj=811) ALBUMIN (BEAKER) (test 3.5 g/dL 3.5-5.0 heba=6553) ALKALINE PHOSPHATASE 110 U/L 40-150 (BEAKER) (test hnsh=663) BILIRUBIN TOTAL (BEAKER) 2.4 mg/dL 0.2-1.2 (test cewq=858) SODIUM (BEAKER) (test 122 meq/L 136-145 frbv=877) POTASSIUM (BEAKER) (test 4.5 meq/L 3.5-5.1 jbmp=118) CHLORIDE (BEAKER) (test 94 meq/L 98-107 tscr=877) CO2 (BEAKER) (test 20 meq/L 22-29 jcch=623) BLOOD UREA NITROGEN 31 mg/dL 7-21 (BEAKER) (test ahee=541) CREATININE (BEAKER) (test 1.94 mg/dL 0.57-1.25 cqif=731) GLUCOSE RANDOM (BEAKER) 127 mg/dL 70-105 (test rtkv=256) CALCIUM (BEAKER) (test 8.6 mg/dL 8.4-10.2 jhwl=515) AST (SGOT) (BEAKER) (test 17 U/L 5-34 onqk=665) ALT (SGPT) (BEAKER) (test 8 U/L 6-55 yfoq=874) EGFR (BEAKER) (test 36 mL/min/1.73 sq m ESTIMATED GFR IS NOT pkgm=8719) ACCURATE CREATININE CLEARANCE IN PREDICTING GLOMERULAR FILTRATION RATE. ESTIMATED GFR IS NOT APPLICABLE FOR DIALYSIS PATIENTS. Specimen slightly ictericPOCT-GLUCOSE [id number] 07:49:00 Test Item Value Reference Range Comments POC-GLUCOSE METER (BEAKER) 132 mg/dL 70-[address] [facility] [address] [facility] (test elvr=6922) [facility] [address] CALCIUM, [id number] 06:35:00 Test Item Value Reference Range Comments CALCIUM IONIZED (BEAKER) (test ycos=841) 1.08 mmol/L 1.12-1.27 PH, BLOOD (BEAKER) (test rgzi=6399) 7.39 CBC W/PLT COUNT & AUTO [id number] 05:56:00 Test Item Value Reference Range Comments WHITE BLOOD CELL COUNT (BEAKER) (test pscl=074) 4.1 K/ L 3.5-10.5 RED BLOOD CELL COUNT (BEAKER) (test nrez=106) 2.67 M/ L 4.63-6.08 HEMOGLOBIN (BEAKER) (test swjt=659) 8.3 GM/DL 13.7-17.5 HEMATOCRIT (BEAKER) (test lxcm=893) 24.7 % 40.1-51.0 MEAN CORPUSCULAR VOLUME (BEAKER) (test gnyp=119) 92.5 fL 79.0-92.2 MEAN CORPUSCULAR HEMOGLOBIN (BEAKER) (test 31.1 pg 25.7-32.2 riml=520) MEAN CORPUSCULAR HEMOGLOBIN CONC (BEAKER) (test 33.6 GM/DL 32.3-36.5 rqvf=587) RED CELL DISTRIBUTION WIDTH (BEAKER) (test 15.0 % 11.6-14.4 widm=020) PLATELET COUNT (BEAKER) (test cuem=183) 58 K/CU MM 150-450 MEAN PLATELET VOLUME (BEAKER) (test rmrg=210) 9.3 fL 9.4-12.4 NUCLEATED RED BLOOD CELLS (BEAKER) (test 0 /100 WBC 0-0 oemw=489) NEUTROPHILS RELATIVE PERCENT (BEAKER) (test 64 % vfpe=737) LYMPHOCYTES RELATIVE PERCENT (BEAKER) (test 12 % msvv=368) MONOCYTES RELATIVE PERCENT (BEAKER) (test 18 % zgum=559) EOSINOPHILS RELATIVE PERCENT (BEAKER) (test 5 % evdp=435) BASOPHILS RELATIVE PERCENT (BEAKER) (test 0 % ahkr=025) NEUTROPHILS ABSOLUTE COUNT (BEAKER) (test 2.63 K/ L 1.78-5.38 vtgj=422) LYMPHOCYTES ABSOLUTE COUNT (BEAKER) (test 0.51 K/ L 1.32-3.57 znym=583) MONOCYTES ABSOLUTE COUNT (BEAKER) (test rxpm=906) 0.74 K/ L 0.30-0.82 EOSINOPHILS ABSOLUTE COUNT (BEAKER) (test 0.21 K/ L 0.04-0.54 orye=028) BASOPHILS ABSOLUTE COUNT (BEAKER) (test usic=138) 0.01 K/ L 0.01-0.08 IMMATURE GRANULOCYTES-RELATIVE PERCENT (BEAKER) 1 % 0-1 (test rfnw=0744) PROTHROMBIN [id number] 05:49:00 Test Item Value Reference Range Comments PROTIME (BEAKER) (test xzjb=951) 20.4 seconds 11.7-14.7 INR (BEAKER) (test riwr=750) 1.8 <=5.9 RECOMMENDED COUMADIN/WARFARIN INR THERAPY RANGESSTANDARD DOSE: 2.0 - 3.0 Includes: PROPHYLAXIS forvenous thrombosis, systemic embolization; TREATMENT for venous thrombosis and/or pulmonary embolus.HIGH RISK: Target INR is 2.5-3.5 for patients with mechanical heart valves.[id number] 22:31:00 Test Item Value Reference Range Comments SODIUM (BEAKER) (test wvtk=439) 123 meq/L 136-145 POTASSIUM (BEAKER) (test buwe=088) 4.5 meq/L 3.5-5.1 CHLORIDE (BEAKER) (test jwvb=170) 94 meq/L 98-107 CO2 (BEAKER) (test rwfa=007) 22 meq/L 22-29 Call results "at a decent hour" to [phone]-GLUCOSE [id number] 21: 48:00 Test Item Value Reference Range Comments POC-GLUCOSE METER (BEAKER) 144 mg/dL 70-110 TESTED AT [address] (test brwq=6635) [facility] [address] [id number] 17:27:00 Test Item Value Reference Range Comments CORTISOL, TOTAL (BEAKER) (test fhmn=8410) 1.9 ug/dL 3.7-19.4 [id number] 17:03:00 Test Item Value Reference Range Comments SODIUM (BEAKER) (test mpne=702) 123 meq/L 136-145 POTASSIUM (BEAKER) (test msrr=126) 4.7 meq/L 3.5-5.1 CHLORIDE (BEAKER) (test wbyg=002) 95 meq/L 98-107 CO2 (BEAKER) (test utmq=331) 21 meq/L 22-29 Call resultsPOCT-GLUCOSE [id number] 16:48:00 Test Item Value Reference Range Comments POC-GLUCOSE METER (BEAKER) 117 mg/dL 70-110 TESTED AT [address] (test gmjt=2693) [place] [address] SODIUM, RANDOM [id number] 15:12:00 Test Item Value Reference Range Comments SODIUM URINE (BEAKER) (test dguj=666) < meq/L Reference Range: No NormalsCREATININE, RANDOM [id number] 15:11:00 Test Item Value Reference Range Comments CREATININE URINE (BEAKER) (test ywwa=665) 87.5 mg/dL Reference Range: No NormalsOSMOLALITY, [id number] 15:05:00 Test Item Value Reference Range Comments OSMOLALITY URINE (BEAKER) (test pshp=640) 234 mOsm/kg 40-1,400 POCT-GLUCOSE [id number] 13:14:00 Test Item Value Reference Range Comments POC-GLUCOSE METER (BEAKER) 129 mg/dL 70-110 TESTED AT [address] (test bket=2842) [place] [id number] 10:06:00 Test Item Value Reference Range Comments SODIUM (BEAKER) (test djsh=641) 120 meq/L 136-145 POTASSIUM (BEAKER) (test aiez=537) 4.6 meq/L 3.5-5.1 CHLORIDE (BEAKER) (test eidm=699) 93 meq/L 98-107 CO2 (BEAKER) (test xzzf=277) 23 meq/L 22-29 Call [id number] 09:01:00 Test Item Value Reference Range Comments POC-GLUCOSE METER (BEAKER) 97 mg/dL 70-[address] [facility] [address] (test jtsy=4024) [facility] [address] COMPREHENSIVE METABOLIC [id number] 08:40:00 Test Item Value Reference Range Comments TOTAL PROTEIN (BEAKER) 5.2 gm/dL 6.0-8.3 (test oonn=474) ALBUMIN (BEAKER) (test 3.7 g/dL 3.5-5.0 exeq=2471) ALKALINE PHOSPHATASE 104 U/L 40-150 (BEAKER) (test pyir=628) BILIRUBIN TOTAL (BEAKER) 3.3 mg/dL 0.2-1.2 (test rrju=716) SODIUM (BEAKER) (test 120 meq/L 136-145 fwnq=024) POTASSIUM (BEAKER) (test 4.8 meq/L 3.5-5.1 kptz=860) CHLORIDE (BEAKER) (test 93 meq/L 98-107 pfzj=451) CO2 (BEAKER) (test 20 meq/L 22-29 rhvq=161) BLOOD UREA NITROGEN 31 mg/dL 7-21 (BEAKER) (test wkzt=754) CREATININE (BEAKER) (test 1.72 mg/dL 0.57-1.25 vjzf=739) GLUCOSE RANDOM (BEAKER) 99 mg/dL 70-105 (test feji=023) CALCIUM (BEAKER) (test 8.9 mg/dL 8.4-10.2 azki=258) AST (SGOT) (BEAKER) (test 16 U/L 5-34 jitc=463) ALT (SGPT) (BEAKER) (test < U/L 6-55 haox=613) EGFR (BEAKER) (test 42 mL/min/1.73 sq m ESTIMATED GFR IS NOT vgqe=0753) ACCURATE CREATININE CLEARANCE IN PREDICTING GLOMERULAR FILTRATION RATE. ESTIMATED GFR IS NOT APPLICABLE FOR DIALYSIS PATIENTS. Specimen slightly [id number] 08:14:00 Test Item Value Reference Range Comments PHOSPHORUS (BEAKER) (test jepa=648) 3.8 mg/dL 2.3-4.7 [id number] 08:14:00 Test Item Value Reference Range Comments MAGNESIUM (BEAKER) (test fhll=002) 2.1 mg/dL 1.6-2.6 CALCIUM, [id number] 06:56:00 Test Item Value Reference Range Comments CALCIUM IONIZED (BEAKER) (test vght=889) 1.12 mmol/L 1.12-1.27 PH, BLOOD (BEAKER) (test cqdy=2891) 7.36 CBC W/PLT COUNT & AUTO [id number] 06:38:00 Test Item Value Reference Range Comments WHITE BLOOD CELL COUNT (BEAKER) (test eogk=971) 4.9 K/ L 3.5-10.5 RED BLOOD CELL COUNT (BEAKER) (test dxgl=072) 2.69 M/ L 4.63-6.08 HEMOGLOBIN (BEAKER) (test puck=399) 8.3 GM/DL 13.7-17.5 HEMATOCRIT (BEAKER) (test hrnr=881) 24.8 % 40.1-51.0 MEAN CORPUSCULAR VOLUME (BEAKER) (test mtkd=326) 92.2 fL 79.0-92.2 MEAN CORPUSCULAR HEMOGLOBIN (BEAKER) (test 30.9 pg 25.7-32.2 jcqx=608) MEAN CORPUSCULAR HEMOGLOBIN CONC (BEAKER) (test 33.5 GM/DL 32.3-36.5 mhmb=901) RED CELL DISTRIBUTION WIDTH (BEAKER) (test 14.8 % 11.6-14.4 hcaa=794) PLATELET COUNT (BEAKER) (test bemc=773) 65 K/CU MM 150-450 MEAN PLATELET VOLUME (BEAKER) (test gwes=128) 9.1 fL 9.4-12.4 NUCLEATED RED BLOOD CELLS (BEAKER) (test 0 /100 WBC 0-0 olcc=421) NEUTROPHILS RELATIVE PERCENT (BEAKER) (test 67 % xqpj=720) LYMPHOCYTES RELATIVE PERCENT (BEAKER) (test 10 % liaf=233) MONOCYTES RELATIVE PERCENT (BEAKER) (test 17 % lqaj=063) EOSINOPHILS RELATIVE PERCENT (BEAKER) (test 5 % wrzp=572) BASOPHILS RELATIVE PERCENT (BEAKER) (test 0 % fibz=237) NEUTROPHILS ABSOLUTE COUNT (BEAKER) (test 3.32 K/ L 1.78-5.38 ltsv=599) LYMPHOCYTES ABSOLUTE COUNT (BEAKER) (test 0.51 K/ L 1.32-3.57 pdxg=020) MONOCYTES ABSOLUTE COUNT (BEAKER) (test quvf=222) 0.83 K/ L 0.30-0.82 EOSINOPHILS ABSOLUTE COUNT (BEAKER) (test 0.23 K/ L 0.04-0.54 eoxv=292) BASOPHILS ABSOLUTE COUNT (BEAKER) (test ctus=714) 0.02 K/ L 0.01-0.08 IMMATURE GRANULOCYTES-RELATIVE PERCENT (BEAKER) 1 % 0-1 (test bhko=1247) [id number] 06:35:00 Test Item Value Reference Range Comments PARTIAL THROMBOPLASTIN TIME (BEAKER) (test 52.6 seconds 22.5-36.0 lofc=299) PROTHROMBIN [id number] 06:34:00 Test Item Value Reference Range Comments PROTIME (BEAKER) (test rhcw=731) 21.6 seconds 11.7-14.7 INR (BEAKER) (test tipu=434) 1.9 <=5.9 RECOMMENDED COUMADIN/WARFARIN INR THERAPY RANGESSTANDARD DOSE: 2.0 - 3.0 Includes: PROPHYLAXIS forvenous thrombosis, systemic embolization; TREATMENT for venous thrombosis and/or pulmonary embolus.HIGH RISK: Target INR is 2.5-3.5 for patients with mechanical heart valves.POCT-GLUCOSE [id number] 22:00:00 Test Item Value Reference Range Comments POC-GLUCOSE METER (BEAKER) 114 mg/dL 70-110 TESTED AT [address] (test eroq=1448) [facility] [id number] POCT-GLUCOSE [id number] 17:57:00 Test Item Value Reference Range Comments POC-GLUCOSE METER (BEAKER) 139 mg/dL 70-110 TESTED AT [address] (test opir=0372) [facility] [id number] POCT-GLUCOSE [id number] 11:57:00 Test Item Value Reference Range Comments POC-GLUCOSE METER (BEAKER) 146 mg/dL 70-110 TESTED AT [address] (test repk=3088) [facility] [address] POCT-GLUCOSE [id number] 09:16:00 Test Item Value Reference Range Comments POC-GLUCOSE METER (BEAKER) 109 mg/dL 70-110 TESTED AT [address] (test jkgo=1173) [facility] [id number] COMPREHENSIVE METABOLIC [id number] 05:53:00 Test Item Value Reference Range Comments TOTAL PROTEIN (BEAKER) 5.2 gm/dL 6.0-8.3 (test sqin=183) ALBUMIN (BEAKER) (test 3.8 g/dL 3.5-5.0 mxzu=3518) ALKALINE PHOSPHATASE 110 U/L 40-150 (BEAKER) (test ulwr=740) BILIRUBIN TOTAL (BEAKER) 4.5 mg/dL 0.2-1.2 (test utfi=892) SODIUM (BEAKER) (test 124 meq/L 136-145 szva=809) POTASSIUM (BEAKER) (test 4.5 meq/L 3.5-5.1 fxqi=786) CHLORIDE (BEAKER) (test 95 meq/L 98-107 vorl=440) CO2 (BEAKER) (test 22 meq/L 22-29 jlpf=019) BLOOD UREA NITROGEN 30 mg/dL 7-21 (BEAKER) (test bdpb=400) CREATININE (BEAKER) (test 1.67 mg/dL 0.57-1.25 snhs=834) GLUCOSE RANDOM (BEAKER) 99 mg/dL 70-105 (test mnxj=116) CALCIUM (BEAKER) (test 9.0 mg/dL 8.4-10.2 vkmo=113) AST (SGOT) (BEAKER) (test 16 U/L 5-34 bidf=900) ALT (SGPT) (BEAKER) (test < U/L 6-55 aqzg=101) EGFR (BEAKER) (test 43 mL/min/1.73 sq m ESTIMATED GFR IS NOT xznh=7218) ACCURATE CREATININE CLEARANCE IN PREDICTING GLOMERULAR FILTRATION RATE. ESTIMATED GFR IS NOT APPLICABLE FOR DIALYSIS PATIENTS. Specimen slightly [id number] 05:50:00 Test Item Value Reference Range Comments PHOSPHORUS (BEAKER) (test iefe=126) 3.7 mg/dL 2.3-4.7 [id number] 05:50:00 Test Item Value Reference Range Comments MAGNESIUM (BEAKER) (test yttd=036) 2.1 mg/dL 1.6-2.6 CBC W/PLT COUNT & AUTO [id number] 05:28:00 Test Item Value Reference Range Comments WHITE BLOOD CELL COUNT (BEAKER) (test tfdc=388) 4.0 K/ L 3.5-10.5 RED BLOOD CELL COUNT (BEAKER) (test pwto=670) 2.80 M/ L 4.63-6.08 HEMOGLOBIN (BEAKER) (test sszp=029) 8.7 GM/DL 13.7-17.5 HEMATOCRIT (BEAKER) (test zjfl=211) 25.8 % 40.1-51.0 MEAN CORPUSCULAR VOLUME (BEAKER) (test cwnp=967) 92.1 fL 79.0-92.2 MEAN CORPUSCULAR HEMOGLOBIN (BEAKER) (test 31.1 pg 25.7-32.2 fnay=741) MEAN CORPUSCULAR HEMOGLOBIN CONC (BEAKER) (test 33.7 GM/DL 32.3-36.5 fthz=344) RED CELL DISTRIBUTION WIDTH (BEAKER) (test 14.7 % 11.6-14.4 xojk=348) PLATELET COUNT (BEAKER) (test akvi=866) 42 K/CU MM 150-450 MEAN PLATELET VOLUME (BEAKER) (test mhin=961) 9.8 fL 9.4-12.4 NUCLEATED RED BLOOD CELLS (BEAKER) (test 0 /100 WBC 0-0 jsqk=571) NEUTROPHILS RELATIVE PERCENT (BEAKER) (test 59 % knox=073) LYMPHOCYTES RELATIVE PERCENT (BEAKER) (test 15 % renr=283) MONOCYTES RELATIVE PERCENT (BEAKER) (test 20 % shji=507) EOSINOPHILS RELATIVE PERCENT (BEAKER) (test 5 % ewli=900) BASOPHILS RELATIVE PERCENT (BEAKER) (test 1 % bvwy=147) NEUTROPHILS ABSOLUTE COUNT (BEAKER) (test 2.37 K/ L 1.78-5.38 zdit=531) LYMPHOCYTES ABSOLUTE COUNT (BEAKER) (test 0.58 K/ L 1.32-3.57 pcvj=832) MONOCYTES ABSOLUTE COUNT (BEAKER) (test ijxb=717) 0.78 K/ L 0.30-0.82 EOSINOPHILS ABSOLUTE COUNT (BEAKER) (test 0.21 K/ L 0.04-0.54 myob=176) BASOPHILS ABSOLUTE COUNT (BEAKER) (test xygm=857) 0.02 K/ L 0.01-0.08 IMMATURE GRANULOCYTES-RELATIVE PERCENT (BEAKER) 1 % 0-1 (test xoxq=4342) PROTHROMBIN [id number] 05:26:00 Test Item Value Reference Range Comments PROTIME (BEAKER) (test qewb=316) 23.3 seconds 11.7-14.7 INR (BEAKER) (test nbxx=411) 2.1 <=5.9 RECOMMENDED COUMADIN/WARFARIN INR THERAPY RANGESSTANDARD DOSE: 2.0 - 3.0 Includes: PROPHYLAXIS forvenous thrombosis, systemic embolization; TREATMENT for venous thrombosis and/or pulmonary embolus.HIGH RISK: Target INR is 2.5-3.5 for patients with mechanical heart valves.CALCIUM, [id number] 05:21:00 Test Item Value Reference Range Comments CALCIUM IONIZED (BEAKER) (test abpu=607) 1.11 mmol/L 1.12-1.27 PH, BLOOD (BEAKER) (test bbrw=9931) 7.40 POCT-GLUCOSE [id number] 21:47:00 Test Item Value Reference Range Comments POC-GLUCOSE METER (BEAKER) 129 mg/dL 70-110 TESTED AT [address] (test unty=5624) [facility] [address] RAD, CHEST, 1 VIEW, NON [id number] 17:18:00Reason for exam:->sobFINAL REPORT Comparison: 08/26/2018 TECHNIQUE: Single view of the chest FINDINGS: Lung volumes are low. Bibasilar densities may represent atelectasis. Otherwise lungs are clear. Cardiac silhouette is within normal limits. Soft tissues and bones are unremarkable. Signed: Rick Loomis Verified Date/Time: 09/02/2018 17:18:49 Reading Location: [facility] Mammo Reading Room CBC W/ PLT COUNT & AUTO [id number] 17:16:00 Test Item Value Reference Range Comments WHITE BLOOD CELL COUNT (BEAKER) (test zgea=585) 3.8 K/ L 3.5-10.5 RED BLOOD CELL COUNT (BEAKER) (test mzga=518) 2.37 M/ L 4.63-6.08 HEMOGLOBIN (BEAKER) (test ugby=672) 7.4 GM/DL 13.7-17.5 HEMATOCRIT (BEAKER) (test chcx=023) 21.8 % 40.1-51.0 MEAN CORPUSCULAR VOLUME (BEAKER) (test cbcu=500) 92.0 fL 79.0-92.2 MEAN CORPUSCULAR HEMOGLOBIN (BEAKER) (test 31.2 pg 25.7-32.2 xwcx=694) MEAN CORPUSCULAR HEMOGLOBIN CONC (BEAKER) (test 33.9 GM/DL 32.3-36.5 uqeg=469) RED CELL DISTRIBUTION WIDTH (BEAKER) (test 14.9 % 11.6-14.4 dkux=237) PLATELET COUNT (BEAKER) (test dmec=296) 41 K/CU MM 150-450 MEAN PLATELET VOLUME (BEAKER) (test fnfp=460) 8.8 fL 9.4-12.4 NUCLEATED RED BLOOD CELLS (BEAKER) (test 0 /100 WBC 0-0 qoch=846) NEUTROPHILS RELATIVE PERCENT (BEAKER) (test 62 % ohmo=143) LYMPHOCYTES RELATIVE PERCENT (BEAKER) (test 14 % yrqq=715) MONOCYTES RELATIVE PERCENT (BEAKER) (test 18 % tjxx=738) EOSINOPHILS RELATIVE PERCENT (BEAKER) (test 4 % pivh=706) BASOPHILS RELATIVE PERCENT (BEAKER) (test 0 % cmvn=254) NEUTROPHILS ABSOLUTE COUNT (BEAKER) (test 2.39 K/ L 1.78-5.38 adfx=344) LYMPHOCYTES ABSOLUTE COUNT (BEAKER) (test 0.55 K/ L 1.32-3.57 vuhu=088) MONOCYTES ABSOLUTE COUNT (BEAKER) (test nryz=122) 0.69 K/ L 0.30-0.82 EOSINOPHILS ABSOLUTE COUNT (BEAKER) (test 0.17 K/ L 0.04-0.54 jblg=799) BASOPHILS ABSOLUTE COUNT (BEAKER) (test lolh=426) 0.01 K/ L 0.01-0.08 IMMATURE GRANULOCYTES-RELATIVE PERCENT (BEAKER) 1 % 0-1 (test tlpq=5205) POCT-BLOOD GASES, [id number] 16:58:00 Test Item Value Reference Range Comments TEMP, CELSIUS-POC (BEAKER) 37.0 (test hqgm=9556) FIO2-POC (BEAKER) (test TESTED AT [address] skiu=1388) [place] [address] PH, ARTERIAL-POC (BEAKER) 7.412 7.350-7.450 (test kkff=0487) PCO2, ARTERIAL-POC (BEAKER) 35.5 mm Hg 35.0-45.0 (test mxng=2366) PO2, ARTERIAL-POC (BEAKER) 69.0 mm Hg 80.0-90.0 (test aiek=4146) SO2, ARTERIAL-POC (BEAKER) 94.0 % 96.0-97.0 (test puio=3403) HCO3, ARTERIAL-POC (BEAKER) 22.6 meq/L 21.0-29.0 (test bnyj=7318) BASE EXCESS, ARTERIAL-POC -2.0 meq/L -2.0-3.0 (BEAKER) (test aagz=4221) [id number] 16:58:00 Test Item Value Reference Range Comments POC-SODIUM (BEAKER) (test 125 meq/L 135-148 TESTED AT [address] rpif=8476) [place] [address] [id number] 16:58:00 Test Item Value Reference Range Comments POC-POTASSIUM (BEAKER) (test 4.2 meq/L 3.6-5.5 TESTED AT [address] bgtg=3755) [place] [address] [id number] 16:58:00 Test Item Value Reference Range Comments POC-GLUCOSE (BEAKER) (test 128 mg/dL 70-110 TESTED AT [address] hzaa=2962) [place] [address] POCT-CALCIUM [id number] 16:58:00 Test Item Value Reference Range Comments POC-CALCIUM IONIZED (BEAKER) 1.24 mmol/L 1.12-1.27 TESTED AT [address] (test fqml=6190) [place] [address] [id number] 16:58:00 Test Item Value Reference Range Comments POC-HEMATOCRIT (BEAKER) (test 21 % 40-50 TESTED AT [address] trdf=6719) [place] [address] [id number] 16:58:00 Test Item Value Reference Range Comments POC-HEMOGLOBIN (BEAKER) 7.1 g/dL 13.0-16.8 TESTED AT [address] (test bqut=3607) [facility] [address]Z[place]TRUD AT [address] [address] POCT-LACTIC ACID, [id number] 16:58:00 Test Item Value Reference Range Comments POC-LACTIC ACID, ARTERIAL 1.0 mmol/L 0.4-1.3 TESTED AT [address] (BEAKER) (test ygda=2205) [facility] [address] POCT-GLUCOSE [id number] 11:43:00 Test Item Value Reference Range Comments POC-GLUCOSE METER (BEAKER) 169 mg/dL 70-110 TESTED AT [address] (test xklq=6478) [facility] [address] POCT-GLUCOSE [id number] 08:23:00 Test Item Value Reference Range Comments POC-GLUCOSE METER (BEAKER) 128 mg/dL 70-110 TESTED AT [address] (test ltyz=3038) [facility] [address] [id number] 05:16:00 Test Item Value Reference Range Comments PHOSPHORUS (BEAKER) (test ruvc=022) 3.8 mg/dL 2.3-4.7 [id number] 05:16:00 Test Item Value Reference Range Comments MAGNESIUM (BEAKER) (test lhia=121) 2.0 mg/dL 1.6-2.6 COMPREHENSIVE METABOLIC [id number] 05:16:00 Test Item Value Reference Range Comments TOTAL PROTEIN (BEAKER) 5.0 gm/dL 6.0-8.3 (test gkao=506) ALBUMIN (BEAKER) (test 3.5 g/dL 3.5-5.0 tfye=4051) ALKALINE PHOSPHATASE 124 U/L 40-150 (BEAKER) (test ptvm=697) BILIRUBIN TOTAL (BEAKER) 2.2 mg/dL 0.2-1.2 (test mbsc=960) SODIUM (BEAKER) (test 125 meq/L 136-145 wevh=906) POTASSIUM (BEAKER) (test 4.4 meq/L 3.5-5.1 tqdv=987) CHLORIDE (BEAKER) (test 96 meq/L 98-107 rabs=900) CO2 (BEAKER) (test 23 meq/L 22-29 kdmm=880) BLOOD UREA NITROGEN 27 mg/dL 7-21 (BEAKER) (test flov=772) CREATININE (BEAKER) (test 1.74 mg/dL 0.57-1.25 fuzd=023) GLUCOSE RANDOM (BEAKER) 112 mg/dL 70-105 (test emsu=177) CALCIUM (BEAKER) (test 8.8 mg/dL 8.4-10.2 vquy=488) AST (SGOT) (BEAKER) (test 17 U/L 5-34 cmmo=374) ALT (SGPT) (BEAKER) (test 7 U/L 6-55 qktl=584) EGFR (BEAKER) (test 41 mL/min/1.73 sq m ESTIMATED GFR IS NOT torm=6279) ACCURATE CREATININE CLEARANCE IN PREDICTING GLOMERULAR FILTRATION RATE. ESTIMATED GFR IS NOT APPLICABLE FOR DIALYSIS PATIENTS. CALCIUM, [id number] 05:13:00 Test Item Value Reference Range Comments CALCIUM IONIZED (BEAKER) (test bgcr=639) 1.10 mmol/L 1.12-1.27 PH, BLOOD (BEAKER) (test flpf=3261) 7.44 CBC W/PLT COUNT & AUTO [id number] 05:02:00 Test Item Value Reference Range Comments WHITE BLOOD CELL COUNT (BEAKER) (test beff=685) 3.2 K/ L 3.5-10.5 RED BLOOD CELL COUNT (BEAKER) (test mvpq=993) 2.23 M/ L 4.63-6.08 HEMOGLOBIN (BEAKER) (test mpbs=380) 6.9 GM/DL 13.7-17.5 HEMATOCRIT (BEAKER) (test dfvp=277) 20.8 % 40.1-51.0 MEAN CORPUSCULAR VOLUME (BEAKER) (test pjfx=109) 93.3 fL 79.0-92.2 MEAN CORPUSCULAR HEMOGLOBIN (BEAKER) (test 30.9 pg 25.7-32.2 kyqa=832) MEAN CORPUSCULAR HEMOGLOBIN CONC (BEAKER) (test 33.2 GM/DL 32.3-36.5 xmrs=882) RED CELL DISTRIBUTION WIDTH (BEAKER) (test 14.6 % 11.6-14.4 vvfa=438) PLATELET COUNT (BEAKER) (test dlbi=059) 43 K/CU MM 150-450 MEAN PLATELET VOLUME (BEAKER) (test wjun=968) 9.3 fL 9.4-12.4 NUCLEATED RED BLOOD CELLS (BEAKER) (test 0 /100 WBC 0-0 dosy=475) NEUTROPHILS RELATIVE PERCENT (BEAKER) (test 58 % ifdr=061) LYMPHOCYTES RELATIVE PERCENT (BEAKER) (test 17 % iykn=946) MONOCYTES RELATIVE PERCENT (BEAKER) (test 18 % entz=575) EOSINOPHILS RELATIVE PERCENT (BEAKER) (test 5 % chno=326) BASOPHILS RELATIVE PERCENT (BEAKER) (test 1 % ptlr=695) NEUTROPHILS ABSOLUTE COUNT (BEAKER) (test 1.84 K/ L 1.78-5.38 juyd=900) LYMPHOCYTES ABSOLUTE COUNT (BEAKER) (test 0.54 K/ L 1.32-3.57 qqdn=515) MONOCYTES ABSOLUTE COUNT (BEAKER) (test xtrh=050) 0.56 K/ L 0.30-0.82 EOSINOPHILS ABSOLUTE COUNT (BEAKER) (test 0.15 K/ L 0.04-0.54 uzeu=514) BASOPHILS ABSOLUTE COUNT (BEAKER) (test qhme=821) 0.02 K/ L 0.01-0.08 IMMATURE GRANULOCYTES-RELATIVE PERCENT (BEAKER) 1 % 0-1 (test ymuo=3627) PROTHROMBIN [id number] 05:00:00 Test Item Value Reference Range Comments PROTIME (BEAKER) (test ycag=279) 22.7 seconds 11.7-14.7 INR (BEAKER) (test gqqm=006) 2.0 <=5.9 RECOMMENDED COUMADIN/WARFARIN INR THERAPY RANGESSTANDARD DOSE: 2.0 - 3.0 Includes: PROPHYLAXIS forvenous thrombosis, systemic embolization; TREATMENT for venous thrombosis and/or pulmonary embolus.HIGH RISK: Target INR is 2.5-3.5 for patients with mechanical heart valves.POCT-GLUCOSE [id number] 22:18:00 Test Item Value Reference Range Comments POC-GLUCOSE METER (BEAKER) 194 mg/dL 70-[address] [facility] [address] [facility] (test nlso=4132) [facility] [address] POCT-GLUCOSE [id number] 17:33:00 Test Item Value Reference Range Comments POC-GLUCOSE METER (BEAKER) 160 mg/dL 70-[address] [facility] [address] [facility] (test riky=9946) [facility] [address] POCT-GLUCOSE [id number] 11:56:00 Test Item Value Reference Range Comments POC-GLUCOSE METER (BEAKER) 151 mg/dL 70-[address] [facility] [address] [facility] (test rvxu=6879) [facility] [address] URINALYSIS W/ [id number] 09:52:00 Test Item Value Reference Range Comments COLOR (BEAKER) (test ytwy=032) Yellow CLARITY (BEAKER) (test yjph=197) Clear SPECIFIC GRAVITY UA (BEAKER) (test 1.014 1.001-1.035 pzvi=260) PH UA (BEAKER) (test lfzd=084) 5.5 5.0-8.0 PROTEIN UA (BEAKER) (test hpsr=336) Negative Negative GLUCOSE UA (BEAKER) (test mhyp=131) Negative Negative KETONES UA (BEAKER) (test vuys=365) Negative Negative BILIRUBIN UA (BEAKER) (test lwgj=065) Negative Negative BLOOD UA (BEAKER) (test kipp=581) Negative Negative NITRITE UA (BEAKER) (test hwhe=387) Negative Negative LEUKOCYTE ESTERASE UA (BEAKER) (test Negative Negative yiow=214) UROBILINOGEN UA (BEAKER) (test tqva=310) 0.2 mg/dL 0.2-1.0 RBC UA (BEAKER) (test bsfw=748) 1 /HPF WBC UA (BEAKER) (test fgnw=527) 4 /HPF BACTERIA (BEAKER) (test rklq=874) Rare MUCUS (BEAKER) (test ykox=4043) Rare HYALINE CASTS (BEAKER) (test jqnt=400) 19 /LPF YEAST (BEAKER) (test qjbp=6587) Rare SOURCE(BEAKER) (test myzf=4928) Urine, Clean Catch SODIUM, RANDOM [id number] 09:09:00 Test Item Value Reference Range Comments SODIUM URINE (BEAKER) (test xswz=101) < meq/L Reference Range: No NormalsCREATININE, RANDOM [id number] 09:04:00 Test Item Value Reference Range Comments CREATININE URINE (BEAKER) (test aoxb=802) 149.6 mg/dL Reference Range: No NormalsPOCT-GLUCOSE [id number] 08:12:00 Test Item Value Reference Range Comments POC-GLUCOSE METER (BEAKER) 106 mg/dL 70-[address] [facility] [address] [facility] (test agco=6043) [facility] [address] CBC W/PLT COUNT & AUTO [id number] 06:56:00 Test Item Value Reference Range Comments WHITE BLOOD CELL COUNT (BEAKER) (test jctc=740) 4.5 K/ L 3.5-10.5 RED BLOOD CELL COUNT (BEAKER) (test yhib=377) 2.22 M/ L 4.63-6.08 HEMOGLOBIN (BEAKER) (test gwjp=331) 7.0 GM/DL 13.7-17.5 HEMATOCRIT (BEAKER) (test uetp=781) 20.6 % 40.1-51.0 MEAN CORPUSCULAR VOLUME (BEAKER) (test wukx=272) 92.8 fL 79.0-92.2 MEAN CORPUSCULAR HEMOGLOBIN (BEAKER) (test 31.5 pg 25.7-32.2 xlqe=491) MEAN CORPUSCULAR HEMOGLOBIN CONC (BEAKER) (test 34.0 GM/DL 32.3-36.5 gozr=880) RED CELL DISTRIBUTION WIDTH (BEAKER) (test 14.7 % 11.6-14.4 mdzm=063) PLATELET COUNT (BEAKER) (test polo=108) 44 K/CU MM 150-450 MEAN PLATELET VOLUME (BEAKER) (test bual=013) 9.0 fL 9.4-12.4 NUCLEATED RED BLOOD CELLS (BEAKER) (test 0 /100 WBC 0-0 lkjg=441) NEUTROPHILS RELATIVE PERCENT (BEAKER) (test 69 % qasa=352) LYMPHOCYTES RELATIVE PERCENT (BEAKER) (test 12 % lftc=672) MONOCYTES RELATIVE PERCENT (BEAKER) (test 14 % uwqc=854) EOSINOPHILS RELATIVE PERCENT (BEAKER) (test 4 % ivbb=338) BASOPHILS RELATIVE PERCENT (BEAKER) (test 0 % yduw=066) NEUTROPHILS ABSOLUTE COUNT (BEAKER) (test 3.12 K/ L 1.78-5.38 lxgw=670) LYMPHOCYTES ABSOLUTE COUNT (BEAKER) (test 0.55 K/ L 1.32-3.57 kcuc=928) MONOCYTES ABSOLUTE COUNT (BEAKER) (test vmep=957) 0.62 K/ L 0.30-0.82 EOSINOPHILS ABSOLUTE COUNT (BEAKER) (test 0.18 K/ L 0.04-0.54 sjyq=199) BASOPHILS ABSOLUTE COUNT (BEAKER) (test ekch=199) 0.00 K/ L 0.01-0.08 IMMATURE GRANULOCYTES-RELATIVE PERCENT (BEAKER) 1 % 0-1 (test rnpq=6855) [id number] 06:41:00 Test Item Value Reference Range Comments PHOSPHORUS (BEAKER) (test tjbi=942) 2.7 mg/dL 2.3-4.7 [id number] 06:41:00 Test Item Value Reference Range Comments MAGNESIUM (BEAKER) (test kxaw=929) 2.0 mg/dL 1.6-2.6 COMPREHENSIVE METABOLIC [id number] 06:41:00 Test Item Value Reference Range Comments TOTAL PROTEIN (BEAKER) 4.9 gm/dL 6.0-8.3 (test acym=177) ALBUMIN (BEAKER) (test 3.1 g/dL 3.5-5.0 uicn=7973) ALKALINE PHOSPHATASE 148 U/L 40-150 (BEAKER) (test scxl=317) BILIRUBIN TOTAL (BEAKER) 1.9 mg/dL 0.2-1.2 (test uadq=714) SODIUM (BEAKER) (test 123 meq/L 136-145 sctr=379) POTASSIUM (BEAKER) (test 3.9 meq/L 3.5-5.1 ucyu=342) CHLORIDE (BEAKER) (test 94 meq/L 98-107 wdlp=835) CO2 (BEAKER) (test 22 meq/L 22-29 aiux=269) BLOOD UREA NITROGEN 24 mg/dL 7-21 (BEAKER) (test ywyw=289) CREATININE (BEAKER) (test 1.55 mg/dL 0.57-1.25 zhhd=410) GLUCOSE RANDOM (BEAKER) 95 mg/dL 70-105 (test epav=671) CALCIUM (BEAKER) (test 8.5 mg/dL 8.4-10.2 eugv=269) AST (SGOT) (BEAKER) (test 18 U/L 5-34 jkcf=024) ALT (SGPT) (BEAKER) (test 10 U/L 6-55 fzzn=986) EGFR (BEAKER) (test 47 mL/min/1.73 sq m ESTIMATED GFR IS NOT rngf=0568) ACCURATE CREATININE CLEARANCE IN PREDICTING GLOMERULAR FILTRATION RATE. ESTIMATED GFR IS NOT APPLICABLE FOR DIALYSIS PATIENTS. BILIRUBIN, [id number] 06:41:00 Test Item Value Reference Range Comments BILIRUBIN DIRECT (BEAKER) (test rzmc=753) 1.3 mg/dL 0.1-0.5 PROTHROMBIN [id number] 06:26:00 Test Item Value Reference Range Comments PROTIME (BEAKER) (test urgs=330) 23.3 seconds 11.7-14.7 INR (BEAKER) (test oayt=789) 2.1 <=5.9 RECOMMENDED COUMADIN/WARFARIN INR THERAPY RANGESSTANDARD DOSE: 2.0 - 3.0 Includes: PROPHYLAXIS forvenous thrombosis, systemic embolization; TREATMENT for venous thrombosis and/or pulmonary embolus.HIGH RISK: Target INR is 2.5-3.5 for patients with mechanical heart valves.POCT-GLUCOSE [id number] 22:17:00 Test Item Value Reference Range Comments POC-GLUCOSE METER (BEAKER) 136 mg/dL 70-[address] [facility] [address] [facility] (test qxep=5637) [facility] [address] POCT-GLUCOSE [id number] 18:08:00 Test Item Value Reference Range Comments POC-GLUCOSE METER (BEAKER) 126 mg/dL 70-110 TESTED AT [place] [id number] [facility] (test cdvj=9442) [facility] [address] U/S, [id number] 17:47:00Reason for exam:->ascitesFINAL REPORT Indication: Ascites. Technique: Ultrasound guided paracentesis. Findings:Preliminary ultrasound confirms ascites. A safe window was identified in the left lower quadrant. The procedure was explained to the patient and informed consent was signed. The skin was markedand prepped in standard sterile fashion. Lidocaine was used for local anesthesia. A 5 Algerian needle catheter system was advanced into the peritoneal space. 5500 cc slightly cloudy yellow fluid was taken off. Patient tolerated the procedure well. Impression: Ultrasound guided paracentesis. Signed: Jono Xiongort Verified Date/Time: 08/31/2018 17:47:54 Reading Location: [facility] [id number] Ultrasound Reading Room POCT-GLUCOSE [id number] 11:52:00 Test Item Value Reference Range Comments POC-GLUCOSE METER (BEAKER) 151 mg/dL 70-[address] [facility] [address] [facility] (test noaz=6127) [facility] [address] POCT-GLUCOSE [id number] 08:19:00 Test Item Value Reference Range Comments POC-GLUCOSE METER (BEAKER) 129 mg/dL 70-110 TESTED AT [place] [id number] [facility] (test auap=1034) [facility] [address] [id number] 05:12:00 Test Item Value Reference Range Comments PHOSPHORUS (BEAKER) (test gisg=552) 2.9 mg/dL 2.3-4.7 [id number] 05:12:00 Test Item Value Reference Range Comments MAGNESIUM (BEAKER) (test dhqd=571) 2.0 mg/dL 1.6-2.6 COMPREHENSIVE METABOLIC [id number] 05:12:00 Test Item Value Reference Range Comments TOTAL PROTEIN (BEAKER) 5.4 gm/dL 6.0-8.3 (test haki=390) ALBUMIN (BEAKER) (test 3.2 g/dL 3.5-5.0 ctva=4744) ALKALINE PHOSPHATASE 159 U/L 40-150 (BEAKER) (test enyl=226) BILIRUBIN TOTAL (BEAKER) 1.8 mg/dL 0.2-1.2 (test ezhz=349) SODIUM (BEAKER) (test 125 meq/L 136-145 zeqn=073) POTASSIUM (BEAKER) (test 4.3 meq/L 3.5-5.1 xdfn=626) CHLORIDE (BEAKER) (test 97 meq/L 98-107 kwwu=956) CO2 (BEAKER) (test 22 meq/L 22-29 baol=371) BLOOD UREA NITROGEN 21 mg/dL 7-21 (BEAKER) (test zjvj=411) CREATININE (BEAKER) (test 1.34 mg/dL 0.57-1.25 riec=716) GLUCOSE RANDOM (BEAKER) 113 mg/dL 70-105 (test ffqu=607) CALCIUM (BEAKER) (test 8.8 mg/dL 8.4-10.2 rqwd=140) AST (SGOT) (BEAKER) (test 22 U/L 5-34 pigw=313) ALT (SGPT) (BEAKER) (test 11 U/L 6-55 apcd=613) EGFR (BEAKER) (test 56 mL/min/1.73 sq m ESTIMATED GFR IS NOT syrl=4520) ACCURATE CREATININE CLEARANCE IN PREDICTING GLOMERULAR FILTRATION RATE. ESTIMATED GFR IS NOT APPLICABLE FOR DIALYSIS PATIENTS. BILIRUBIN, [id number] 05:12:00 Test Item Value Reference Range Comments BILIRUBIN DIRECT (BEAKER) (test nevq=024) 1.2 mg/dL 0.1-0.5 PROTHROMBIN [id number] 04:48:00 Test Item Value Reference Range Comments PROTIME (BEAKER) (test mbtu=393) 22.3 seconds 11.7-14.7 INR (BEAKER) (test cvnr=592) 2.0 <=5.9 RECOMMENDED COUMADIN/WARFARIN INR THERAPY RANGESSTANDARD DOSE: 2.0 - 3.0 Includes: PROPHYLAXIS forvenous thrombosis, systemic embolization; TREATMENT for venous thrombosis and/or pulmonary embolus.HIGH RISK: Target INR is 2.5-3.5 for patients with mechanical heart valves.CBC W/PLT COUNT & AUTO [id number] 04:33:00 Test Item Value Reference Range Comments WHITE BLOOD CELL COUNT (BEAKER) (test efhd=074) 5.5 K/ L 3.5-10.5 RED BLOOD CELL COUNT (BEAKER) (test tdwe=591) 2.58 M/ L 4.63-6.08 HEMOGLOBIN (BEAKER) (test upbz=789) 7.9 GM/DL 13.7-17.5 HEMATOCRIT (BEAKER) (test exkf=881) 24.3 % 40.1-51.0 MEAN CORPUSCULAR VOLUME (BEAKER) (test dbcf=106) 94.2 fL 79.0-92.2 MEAN CORPUSCULAR HEMOGLOBIN (BEAKER) (test 30.6 pg 25.7-32.2 jrko=811) MEAN CORPUSCULAR HEMOGLOBIN CONC (BEAKER) (test 32.5 GM/DL 32.3-36.5 lrme=317) RED CELL DISTRIBUTION WIDTH (BEAKER) (test 15.0 % 11.6-14.4 cmcp=270) PLATELET COUNT (BEAKER) (test dkig=496) 57 K/CU MM 150-450 MEAN PLATELET VOLUME (BEAKER) (test mmgg=759) 9.2 fL 9.4-12.4 NUCLEATED RED BLOOD CELLS (BEAKER) (test 0 /100 WBC 0-0 dioe=107) NEUTROPHILS RELATIVE PERCENT (BEAKER) (test 70 % ggyl=701) LYMPHOCYTES RELATIVE PERCENT (BEAKER) (test 12 % kdya=600) MONOCYTES RELATIVE PERCENT (BEAKER) (test 14 % bsvf=703) EOSINOPHILS RELATIVE PERCENT (BEAKER) (test 4 % adcr=126) BASOPHILS RELATIVE PERCENT (BEAKER) (test 0 % dwqb=317) NEUTROPHILS ABSOLUTE COUNT (BEAKER) (test 3.85 K/ L 1.78-5.38 ubdv=339) LYMPHOCYTES ABSOLUTE COUNT (BEAKER) (test 0.67 K/ L 1.32-3.57 hkim=672) MONOCYTES ABSOLUTE COUNT (BEAKER) (test ttmf=813) 0.75 K/ L 0.30-0.82 EOSINOPHILS ABSOLUTE COUNT (BEAKER) (test 0.22 K/ L 0.04-0.54 uwbr=365) BASOPHILS ABSOLUTE COUNT (BEAKER) (test jirf=730) 0.01 K/ L 0.01-0.08 IMMATURE GRANULOCYTES-RELATIVE PERCENT (BEAKER) 1 % 0-1 (test isif=1470) BLOOD [id number] 23:01:00 Test Item Value Reference Range Comments CULTURE (BEAKER) (test izfk=9079) No growth in 5 days POCT-GLUCOSE [id number] 22:15:00 Test Item Value Reference Range Comments POC-GLUCOSE METER (BEAKER) 133 mg/dL 70-110 TESTED AT [address] (test qbci=7458) [facility] [id number] POCT-GLUCOSE [id number] 17:42:00 Test Item Value Reference Range Comments POC-GLUCOSE METER (BEAKER) 139 mg/dL 70-110 TESTED AT [address] (test tpiw=8353) [facility] [address] POCT-GLUCOSE [id number] 12:02:00 Test Item Value Reference Range Comments POC-GLUCOSE METER (BEAKER) 152 mg/dL 70-110 TESTED AT [address] (test trft=8959) [facility] [address] POCT-GLUCOSE [id number] 09:04:00 Test Item Value Reference Range Comments POC-GLUCOSE METER (BEAKER) 130 mg/dL 70-[address] [facility] [address] [facility] (test rrhc=2906) [facility] [address] CALCIUM, [id number] 07:27:00 Test Item Value Reference Range Comments CALCIUM IONIZED (BEAKER) (test wofy=888) 1.10 mmol/L 1.12-1.27 PH, BLOOD (BEAKER) (test etoh=8970) 7.42 [id number] 06:46:00 Test Item Value Reference Range Comments PHOSPHORUS (BEAKER) (test nkxc=173) 3.0 mg/dL 2.3-4.7 [id number] 06:46:00 Test Item Value Reference Range Comments MAGNESIUM (BEAKER) (test qrqx=558) 2.0 mg/dL 1.6-2.6 COMPREHENSIVE METABOLIC [id number] 06:46:00 Test Item Value Reference Range Comments TOTAL PROTEIN (BEAKER) 4.9 gm/dL 6.0-8.3 (test dmkc=936) ALBUMIN (BEAKER) (test 3.0 g/dL 3.5-5.0 ymxb=9781) ALKALINE PHOSPHATASE 145 U/L 40-150 (BEAKER) (test eenz=950) BILIRUBIN TOTAL (BEAKER) 1.9 mg/dL 0.2-1.2 (test povp=978) SODIUM (BEAKER) (test 127 meq/L 136-145 qztc=764) POTASSIUM (BEAKER) (test 3.7 meq/L 3.5-5.1 pipk=760) CHLORIDE (BEAKER) (test 99 meq/L 98-107 euae=119) CO2 (BEAKER) (test 21 meq/L 22-29 hlrw=642) BLOOD UREA NITROGEN 20 mg/dL 7-21 (BEAKER) (test bigf=289) CREATININE (BEAKER) (test 1.21 mg/dL 0.57-1.25 dqrg=607) GLUCOSE RANDOM (BEAKER) 108 mg/dL 70-105 (test ajcx=485) CALCIUM (BEAKER) (test 8.9 mg/dL 8.4-10.2 xpxn=052) AST (SGOT) (BEAKER) (test 22 U/L 5-34 fffd=758) ALT (SGPT) (BEAKER) (test 9 U/L 6-55 ikro=761) EGFR (BEAKER) (test 63 mL/min/1.73 sq m ESTIMATED GFR IS NOT vmfi=7130) ACCURATE CREATININE CLEARANCE IN PREDICTING GLOMERULAR FILTRATION RATE. ESTIMATED GFR IS NOT APPLICABLE FOR DIALYSIS PATIENTS. BASIC METABOLIC [id number] 06:46:00 Test Item Value Reference Range Comments SODIUM (BEAKER) (test 127 meq/L 136-145 rbrc=934) POTASSIUM (BEAKER) (test 3.7 meq/L 3.5-5.1 rlop=437) CHLORIDE (BEAKER) (test 99 meq/L 98-107 lbyo=421) CO2 (BEAKER) (test 21 meq/L 22-29 jonm=340) BLOOD UREA NITROGEN 20 mg/dL 7-21 (BEAKER) (test wgaz=537) CREATININE (BEAKER) (test 1.21 mg/dL 0.57-1.25 gqlu=563) GLUCOSE RANDOM (BEAKER) 108 mg/dL 70-105 (test sqpu=502) CALCIUM (BEAKER) (test 8.9 mg/dL 8.4-10.2 xwbp=028) EGFR (BEAKER) (test 63 mL/min/1.73 sq m ESTIMATED GFR IS NOT wbqf=3539) ACCURATE CREATININE CLEARANCE IN PREDICTING GLOMERULAR FILTRATION RATE. ESTIMATED GFR IS NOT APPLICABLE FOR DIALYSIS PATIENTS. BILIRUBIN, [id number] 06:46:00 Test Item Value Reference Range Comments BILIRUBIN DIRECT (BEAKER) (test imcg=763) 1.2 mg/dL 0.1-0.5 CBC W/PLT COUNT & AUTO [id number] 06:30:00 Test Item Value Reference Range Comments WHITE BLOOD CELL COUNT (BEAKER) (test kqvz=471) 3.7 K/ L 3.5-10.5 RED BLOOD CELL COUNT (BEAKER) (test buse=024) 2.35 M/ L 4.63-6.08 HEMOGLOBIN (BEAKER) (test vlfn=609) 7.4 GM/DL 13.7-17.5 HEMATOCRIT (BEAKER) (test tqtq=956) 22.1 % 40.1-51.0 MEAN CORPUSCULAR VOLUME (BEAKER) (test hkot=572) 94.0 fL 79.0-92.2 MEAN CORPUSCULAR HEMOGLOBIN (BEAKER) (test 31.5 pg 25.7-32.2 wsfy=683) MEAN CORPUSCULAR HEMOGLOBIN CONC (BEAKER) (test 33.5 GM/DL 32.3-36.5 oxux=256) RED CELL DISTRIBUTION WIDTH (BEAKER) (test 14.8 % 11.6-14.4 lrqa=953) PLATELET COUNT (BEAKER) (test zaag=902) 45 K/CU MM 150-450 MEAN PLATELET VOLUME (BEAKER) (test reej=785) 8.8 fL 9.4-12.4 NUCLEATED RED BLOOD CELLS (BEAKER) (test 0 /100 WBC 0-0 kghn=104) NEUTROPHILS RELATIVE PERCENT (BEAKER) (test 61 % mkjz=501) LYMPHOCYTES RELATIVE PERCENT (BEAKER) (test 14 % oydj=558) MONOCYTES RELATIVE PERCENT (BEAKER) (test 18 % htbu=729) EOSINOPHILS RELATIVE PERCENT (BEAKER) (test 6 % rnji=129) BASOPHILS RELATIVE PERCENT (BEAKER) (test 0 % wgmf=891) NEUTROPHILS ABSOLUTE COUNT (BEAKER) (test 2.25 K/ L 1.78-5.38 sdny=578) LYMPHOCYTES ABSOLUTE COUNT (BEAKER) (test 0.53 K/ L 1.32-3.57 qbhv=938) MONOCYTES ABSOLUTE COUNT (BEAKER) (test lmws=453) 0.67 K/ L 0.30-0.82 EOSINOPHILS ABSOLUTE COUNT (BEAKER) (test 0.23 K/ L 0.04-0.54 vodj=222) BASOPHILS ABSOLUTE COUNT (BEAKER) (test bfbn=450) 0.01 K/ L 0.01-0.08 IMMATURE GRANULOCYTES-RELATIVE PERCENT (BEAKER) 1 % 0-1 (test aswu=5312) PROTHROMBIN [id number] 06:07:00 Test Item Value Reference Range Comments PROTIME (BEAKER) (test jntn=797) 21.4 seconds 11.7-14.7 INR (BEAKER) (test lakn=831) 1.9 <=5.9 RECOMMENDED COUMADIN/WARFARIN INR THERAPY RANGESSTANDARD DOSE: 2.0 - 3.0 Includes: PROPHYLAXIS forvenous thrombosis, systemic embolization; TREATMENT for venous thrombosis and/or pulmonary embolus.HIGH RISK: Target INR is 2.5-3.5 for patients with mechanical heart valves.POCT-GLUCOSE [id number] 23:37:00 Test Item Value Reference Range Comments POC-GLUCOSE METER (BEAKER) 154 mg/dL 70-110 TESTED AT [address] (test zkhw=0039) [place] [address] BASIC METABOLIC [id number] 20:17:00 Test Item Value Reference Range Comments SODIUM (BEAKER) (test 125 meq/L 136-145 hegz=021) POTASSIUM (BEAKER) (test 4.0 meq/L 3.5-5.1 xguj=278) CHLORIDE (BEAKER) (test 94 meq/L 98-107 ommn=001) CO2 (BEAKER) (test 25 meq/L 22-29 tzeq=390) BLOOD UREA NITROGEN 20 mg/dL 7-21 (BEAKER) (test shtl=580) CREATININE (BEAKER) (test 1.34 mg/dL 0.57-1.25 hfqt=916) GLUCOSE RANDOM (BEAKER) 115 mg/dL 70-105 (test bdrk=785) CALCIUM (BEAKER) (test 8.9 mg/dL 8.4-10.2 vlal=694) EGFR (BEAKER) (test 56 mL/min/1.73 sq m ESTIMATED GFR IS NOT ftyc=6176) ACCURATE CREATININE CLEARANCE IN PREDICTING GLOMERULAR FILTRATION RATE. ESTIMATED GFR IS NOT APPLICABLE FOR DIALYSIS PATIENTS. POCT-GLUCOSE [id number] 17:59:00 Test Item Value Reference Range Comments POC-GLUCOSE METER (BEAKER) 161 mg/dL 70-110 TESTED AT [address] (test tqlq=8178) [place] [address] BODY FLUID CULTURE + GRAM [id number] 13:31:00 Test Item Value Reference Range Comments CULTURE (BEAKER) (test mnbx=5368) No growth GRAM STAIN RESULT (BEAKER) (test No organisms seen agds=9961) GRAM STAIN RESULT (BEAKER) (test No White blood cells seen fldm=19453) POCT-GLUCOSE [id number] 12:31:00 Test Item Value Reference Range Comments POC-GLUCOSE METER (BEAKER) 114 mg/dL 70-110 TESTED AT [address] (test xfbc=8804) [place] [address] BASIC METABOLIC [id number] 11:33:00 Test Item Value Reference Range Comments SODIUM (BEAKER) (test 124 meq/L 136-145 febj=681) POTASSIUM (BEAKER) (test 4.1 meq/L 3.5-5.1 erjz=906) CHLORIDE (BEAKER) (test 94 meq/L 98-107 ndxq=900) CO2 (BEAKER) (test 23 meq/L 22-29 cktz=573) BLOOD UREA NITROGEN 20 mg/dL 7-21 (BEAKER) (test inkk=465) CREATININE (BEAKER) (test 1.22 mg/dL 0.57-1.25 xkgf=741) GLUCOSE RANDOM (BEAKER) 94 mg/dL 70-105 (test olmr=566) CALCIUM (BEAKER) (test 8.8 mg/dL 8.4-10.2 nzgh=717) EGFR (BEAKER) (test 62 mL/min/1.73 sq m ESTIMATED GFR IS NOT jhxg=2172) ACCURATE CREATININE CLEARANCE IN PREDICTING GLOMERULAR FILTRATION RATE. ESTIMATED GFR IS NOT APPLICABLE FOR DIALYSIS PATIENTS. [id number] 09:24:00 Test Item Value Reference Range Comments FERRITIN (BEAKER) (test njcr=241) 1685 ng/mL 5-275 POCT-GLUCOSE [id number] 07:59:00 Test Item Value Reference Range Comments POC-GLUCOSE METER (BEAKER) 225 mg/dL 70-[address] [facility] [address] [facility] (test bcdp=2346) [facility] [address] IRON, TIBC, % SAT. (WITHOUT FERRITIN)2018-08-29 07:54:00 Test Item Value Reference Range Comments IRON (BEAKER) (test guet=633) 98 ug/dL 40-160 TOTAL IRON BINDING CAPACITY (BEAKER) (test 90 ug/dL 250-450 bnvm=459) IRON % SATURATION (2) (BEAKER) (test stcp=7119) 109 % 20-55 CALCIUM, [id number] 07:13:00 Test Item Value Reference Range Comments CALCIUM IONIZED (BEAKER) (test lzum=263) 1.10 mmol/L 1.12-1.27 PH, BLOOD (BEAKER) (test hjmv=8974) 7.37 [id number] 06:32:00 Test Item Value Reference Range Comments PHOSPHORUS (BEAKER) (test zlwq=332) 2.6 mg/dL 2.3-4.7 [id number] 06:32:00 Test Item Value Reference Range Comments MAGNESIUM (BEAKER) (test ejuo=241) 1.8 mg/dL 1.6-2.6 COMPREHENSIVE METABOLIC [id number] 06:32:00 Test Item Value Reference Range Comments TOTAL PROTEIN (BEAKER) 5.0 gm/dL 6.0-8.3 (test tctx=707) ALBUMIN (BEAKER) (test 3.2 g/dL 3.5-5.0 ptbs=9982) ALKALINE PHOSPHATASE 138 U/L 40-150 (BEAKER) (test rias=236) BILIRUBIN TOTAL (BEAKER) 2.1 mg/dL 0.2-1.2 (test qzfj=300) SODIUM (BEAKER) (test 126 meq/L 136-145 moxq=166) POTASSIUM (BEAKER) (test 4.0 meq/L 3.5-5.1 xrjw=159) CHLORIDE (BEAKER) (test 95 meq/L 98-107 vemi=712) CO2 (BEAKER) (test 23 meq/L 22-29 adpj=000) BLOOD UREA NITROGEN 21 mg/dL 7-21 (BEAKER) (test xqdr=975) CREATININE (BEAKER) (test 1.15 mg/dL 0.57-1.25 fcqd=443) GLUCOSE RANDOM (BEAKER) 110 mg/dL 70-105 (test rtlq=940) CALCIUM (BEAKER) (test 8.8 mg/dL 8.4-10.2 pihg=294) AST (SGOT) (BEAKER) (test 22 U/L 5-34 fpmy=990) ALT (SGPT) (BEAKER) (test 11 U/L 6-55 gfma=537) EGFR (BEAKER) (test 67 mL/min/1.73 sq m ESTIMATED GFR IS NOT laiy=2856) ACCURATE CREATININE CLEARANCE IN PREDICTING GLOMERULAR FILTRATION RATE. ESTIMATED GFR IS NOT APPLICABLE FOR DIALYSIS PATIENTS. BASIC METABOLIC [id number] 06:32:00 Test Item Value Reference Range Comments SODIUM (BEAKER) (test 126 meq/L 136-145 injs=642) POTASSIUM (BEAKER) (test 4.0 meq/L 3.5-5.1 upbz=997) CHLORIDE (BEAKER) (test 95 meq/L 98-107 htfq=585) CO2 (BEAKER) (test 23 meq/L 22-29 pbjs=950) BLOOD UREA NITROGEN 21 mg/dL 7-21 (BEAKER) (test pgpe=388) CREATININE (BEAKER) (test 1.15 mg/dL 0.57-1.25 yzeh=820) GLUCOSE RANDOM (BEAKER) 110 mg/dL 70-105 (test jajp=602) CALCIUM (BEAKER) (test 8.8 mg/dL 8.4-10.2 mxut=790) EGFR (BEAKER) (test 67 mL/min/1.73 sq m ESTIMATED GFR IS NOT behz=3622) ACCURATE CREATININE CLEARANCE IN PREDICTING GLOMERULAR FILTRATION RATE. ESTIMATED GFR IS NOT APPLICABLE FOR DIALYSIS PATIENTS. BILIRUBIN, [id number] 06:32:00 Test Item Value Reference Range Comments BILIRUBIN DIRECT (BEAKER) (test rgoh=394) 1.4 mg/dL 0.1-0.5 PROTHROMBIN [id number] 05:44:00 Test Item Value Reference Range Comments PROTIME (BEAKER) (test pxxh=042) 20.9 seconds 11.7-14.7 INR (BEAKER) (test fafr=117) 1.8 <=5.9 RECOMMENDED COUMADIN/WARFARIN INR THERAPY RANGESSTANDARD DOSE: 2.0 - 3.0 Includes: PROPHYLAXIS forvenous thrombosis, systemic embolization; TREATMENT for venous thrombosis and/or pulmonary embolus.HIGH RISK: Target INR is 2.5-3.5 for patients with mechanical heart valves.CBC W/PLT COUNT & AUTO [id number] 05:43:00 Test Item Value Reference Range Comments WHITE BLOOD CELL COUNT (BEAKER) (test nkws=505) 4.0 K/ L 3.5-10.5 RED BLOOD CELL COUNT (BEAKER) (test vsgg=831) 2.30 M/ L 4.63-6.08 HEMOGLOBIN (BEAKER) (test rqvc=443) 7.5 GM/DL 13.7-17.5 HEMATOCRIT (BEAKER) (test exdc=224) 22.0 % 40.1-51.0 MEAN CORPUSCULAR VOLUME (BEAKER) (test xybf=043) 95.7 fL 79.0-92.2 MEAN CORPUSCULAR HEMOGLOBIN (BEAKER) (test 32.6 pg 25.7-32.2 xivn=742) MEAN CORPUSCULAR HEMOGLOBIN CONC (BEAKER) (test 34.1 GM/DL 32.3-36.5 orrn=639) RED CELL DISTRIBUTION WIDTH (BEAKER) (test 14.8 % 11.6-14.4 alrp=130) PLATELET COUNT (BEAKER) (test qjkz=514) 51 K/CU MM 150-450 MEAN PLATELET VOLUME (BEAKER) (test gepu=284) 8.8 fL 9.4-12.4 NUCLEATED RED BLOOD CELLS (BEAKER) (test 0 /100 WBC 0-0 lazb=549) NEUTROPHILS RELATIVE PERCENT (BEAKER) (test 61 % wxkt=658) LYMPHOCYTES RELATIVE PERCENT (BEAKER) (test 12 % gurz=129) MONOCYTES RELATIVE PERCENT (BEAKER) (test 19 % cpyx=023) EOSINOPHILS RELATIVE PERCENT (BEAKER) (test 7 % ifhu=279) BASOPHILS RELATIVE PERCENT (BEAKER) (test 0 % rzrb=233) NEUTROPHILS ABSOLUTE COUNT (BEAKER) (test 2.43 K/ L 1.78-5.38 oluv=236) LYMPHOCYTES ABSOLUTE COUNT (BEAKER) (test 0.49 K/ L 1.32-3.57 plmd=301) MONOCYTES ABSOLUTE COUNT (BEAKER) (test bwlq=293) 0.75 K/ L 0.30-0.82 EOSINOPHILS ABSOLUTE COUNT (BEAKER) (test 0.29 K/ L 0.04-0.54 ejrb=978) BASOPHILS ABSOLUTE COUNT (BEAKER) (test qgfm=019) 0.00 K/ L 0.01-0.08 IMMATURE GRANULOCYTES-RELATIVE PERCENT (BEAKER) 1 % 0-1 (test ixvq=1981) POCT-GLUCOSE [id number] 22:23:00 Test Item Value Reference Range Comments POC-GLUCOSE METER (BEAKER) 166 mg/dL 70-110 TESTED AT [address] (test przz=7445) [place] [id number] POCT-GLUCOSE [id number] 16:12:00 Test Item Value Reference Range Comments POC-GLUCOSE METER (BEAKER) 110 mg/dL 70-110 TESTED AT [address] (test fqga=2710) [place] [id number] PTH, [id number] 15:57:00 Test Item Value Reference Range Comments PARATHYROID HORMONE INTACT (BEAKER) (test 26.2 pg/mL 8.5-72.5 edqb=127) GAMMA GLUTAMYL TRANSFERASE (GGT)[id number] 15:51:00 Test Item Value Reference Range Comments GAMMA GLUTAMYL TRANSFERASE (BEAKER) (test psak=838) 11 U/L 9-64 BASIC METABOLIC [id number] 15:49:00 Test Item Value Reference Range Comments SODIUM (BEAKER) (test 127 meq/L 136-145 bdpn=813) POTASSIUM (BEAKER) (test 3.6 meq/L 3.5-5.1 ofsa=171) CHLORIDE (BEAKER) (test 97 meq/L 98-107 pfsa=604) CO2 (BEAKER) (test 23 meq/L 22-29 hptt=915) BLOOD UREA NITROGEN 20 mg/dL 7-21 (BEAKER) (test efag=166) CREATININE (BEAKER) (test 1.19 mg/dL 0.57-1.25 gqhx=179) GLUCOSE RANDOM (BEAKER) 123 mg/dL 70-105 (test ohiu=255) CALCIUM (BEAKER) (test 8.6 mg/dL 8.4-10.2 sibf=262) EGFR (BEAKER) (test 64 mL/min/1.73 sq m ESTIMATED GFR IS NOT vpsf=2063) ACCURATE CREATININE CLEARANCE IN PREDICTING GLOMERULAR FILTRATION RATE. ESTIMATED GFR IS NOT APPLICABLE FOR DIALYSIS PATIENTS. VITAMIN D, [id number] 15:24:00 Test Item Value Reference Range Comments VITAMIN D 25-OH (BEAKER) (test iead=9336) 11.2 ng/mL 6.6-49.9 Effective 08/06/2017: Reference Range ChangeNew: 6.6-49.9 ng/mL Previous: 13.0 -47.8 ng/mLRecommended Vitamin D Target Range: 30.0-40.0 ng/mLPOCT-GLUCOSE [id number] 12:35:00 Test Item Value Reference Range Comments POC-GLUCOSE METER (BEAKER) 138 mg/dL 70-[address] [facility] [address] [facility] (test thwk=7502) [facility] [address] BASIC METABOLIC [id number] 09:59:00 Test Item Value Reference Range Comments SODIUM (BEAKER) (test 130 meq/L 136-145 kcot=492) POTASSIUM (BEAKER) (test 4.1 meq/L 3.5-5.1 bish=920) CHLORIDE (BEAKER) (test 99 meq/L 98-107 ryzo=190) CO2 (BEAKER) (test 24 meq/L 22-29 giyz=534) BLOOD UREA NITROGEN 22 mg/dL 7-21 (BEAKER) (test mfwh=302) CREATININE (BEAKER) (test 1.31 mg/dL 0.57-1.25 xyxo=844) GLUCOSE RANDOM (BEAKER) 121 mg/dL 70-105 (test tbow=457) CALCIUM (BEAKER) (test 9.4 mg/dL 8.4-10.2 jwti=488) EGFR (BEAKER) (test 57 mL/min/1.73 sq m ESTIMATED GFR IS NOT qfkl=8054) ACCURATE CREATININE CLEARANCE IN PREDICTING GLOMERULAR FILTRATION RATE. ESTIMATED GFR IS NOT APPLICABLE FOR DIALYSIS PATIENTS. POCT-GLUCOSE [id number] 08:17:00 Test Item Value Reference Range Comments POC-GLUCOSE METER (BEAKER) 131 mg/dL 70-[address] [facility] [address] [facility] (test inrg=0294) [facility] [address] CALCIUM, [id number] 06:01:00 Test Item Value Reference Range Comments CALCIUM IONIZED (BEAKER) (test vqiy=818) 1.06 mmol/L 1.12-1.27 PH, BLOOD (BEAKER) (test gahw=5407) 7.42 [id number] 05:52:00 Test Item Value Reference Range Comments PHOSPHORUS (BEAKER) (test pjwp=416) 3.1 mg/dL 2.3-4.7 [id number] 05:52:00 Test Item Value Reference Range Comments MAGNESIUM (BEAKER) (test jyoy=204) 2.3 mg/dL 1.6-2.6 BASIC METABOLIC [id number] 05:52:00 Test Item Value Reference Range Comments SODIUM (BEAKER) (test 130 meq/L 136-145 fyfg=493) POTASSIUM (BEAKER) (test 3.8 meq/L 3.5-5.1 prdl=744) CHLORIDE (BEAKER) (test 98 meq/L 98-107 zyav=779) CO2 (BEAKER) (test 22 meq/L 22-29 bwsq=975) BLOOD UREA NITROGEN 22 mg/dL 7-21 (BEAKER) (test jvct=580) CREATININE (BEAKER) (test 1.37 mg/dL 0.57-1.25 dsel=164) GLUCOSE RANDOM (BEAKER) 118 mg/dL 70-105 (test vykp=993) CALCIUM (BEAKER) (test 9.6 mg/dL 8.4-10.2 tptv=726) EGFR (BEAKER) (test 54 mL/min/1.73 sq m ESTIMATED GFR IS NOT zuqy=5039) ACCURATE CREATININE CLEARANCE IN PREDICTING GLOMERULAR FILTRATION RATE. ESTIMATED GFR IS NOT APPLICABLE FOR DIALYSIS PATIENTS. Specimen slightly ictericCOMPREHENSIVE METABOLIC [id number] 05:52:00 Test Item Value Reference Range Comments TOTAL PROTEIN (BEAKER) 5.6 gm/dL 6.0-8.3 (test abeq=278) ALBUMIN (BEAKER) (test 3.6 g/dL 3.5-5.0 laiz=3445) ALKALINE PHOSPHATASE 146 U/L 40-150 (BEAKER) (test hkef=687) BILIRUBIN TOTAL (BEAKER) 2.5 mg/dL 0.2-1.2 (test kiib=849) SODIUM (BEAKER) (test 130 meq/L 136-145 ypag=562) POTASSIUM (BEAKER) (test 3.8 meq/L 3.5-5.1 cufu=579) CHLORIDE (BEAKER) (test 98 meq/L 98-107 ryjd=833) CO2 (BEAKER) (test 22 meq/L 22-29 drdi=776) BLOOD UREA NITROGEN 22 mg/dL 7-21 (BEAKER) (test uvav=113) CREATININE (BEAKER) (test 1.37 mg/dL 0.57-1.25 hslf=206) GLUCOSE RANDOM (BEAKER) 118 mg/dL 70-105 (test azrn=854) CALCIUM (BEAKER) (test 9.6 mg/dL 8.4-10.2 knwh=832) AST (SGOT) (BEAKER) (test 25 U/L 5-34 yjoh=181) ALT (SGPT) (BEAKER) (test 10 U/L 6-55 zorb=010) EGFR (BEAKER) (test 54 mL/min/1.73 sq m ESTIMATED GFR IS NOT hjae=5644) ACCURATE CREATININE CLEARANCE IN PREDICTING GLOMERULAR FILTRATION RATE. ESTIMATED GFR IS NOT APPLICABLE FOR DIALYSIS PATIENTS. Specimen slightly ictericBILIRUBIN, [id number] 05:52:00 Test Item Value Reference Range Comments BILIRUBIN DIRECT (BEAKER) (test tcyd=484) 1.6 mg/dL 0.1-0.5 PROTHROMBIN [id number] 05:41:00 Test Item Value Reference Range Comments PROTIME (BEAKER) (test kcqr=496) 21.3 seconds 11.7-14.7 INR (BEAKER) (test zupa=821) 1.8 <=5.9 RECOMMENDED COUMADIN/WARFARIN INR THERAPY RANGESSTANDARD DOSE: 2.0 - 3.0 Includes: PROPHYLAXIS forvenous thrombosis, systemic embolization; TREATMENT for venous thrombosis and/or pulmonary embolus.HIGH RISK: Target INR is 2.5-3.5 for patients with mechanical heart valves.CBC W/PLT COUNT & AUTO [id number] 05:32:00 Test Item Value Reference Range Comments WHITE BLOOD CELL COUNT (BEAKER) (test rkag=968) 5.0 K/ L 3.5-10.5 RED BLOOD CELL COUNT (BEAKER) (test xavh=725) 2.53 M/ L 4.63-6.08 HEMOGLOBIN (BEAKER) (test dylw=507) 8.1 GM/DL 13.7-17.5 HEMATOCRIT (BEAKER) (test aujy=432) 23.6 % 40.1-51.0 MEAN CORPUSCULAR VOLUME (BEAKER) (test mozw=536) 93.3 fL 79.0-92.2 MEAN CORPUSCULAR HEMOGLOBIN (BEAKER) (test 32.0 pg 25.7-32.2 utyo=020) MEAN CORPUSCULAR HEMOGLOBIN CONC (BEAKER) (test 34.3 GM/DL 32.3-36.5 vtev=016) RED CELL DISTRIBUTION WIDTH (BEAKER) (test 14.6 % 11.6-14.4 mhzj=132) PLATELET COUNT (BEAKER) (test nxjm=043) 73 K/CU MM 150-450 MEAN PLATELET VOLUME (BEAKER) (test lyjs=944) 8.8 fL 9.4-12.4 NUCLEATED RED BLOOD CELLS (BEAKER) (test 0 /100 WBC 0-0 lhgu=920) NEUTROPHILS RELATIVE PERCENT (BEAKER) (test 71 % aczq=437) LYMPHOCYTES RELATIVE PERCENT (BEAKER) (test 10 % nqzt=438) MONOCYTES RELATIVE PERCENT (BEAKER) (test 16 % yvhr=282) EOSINOPHILS RELATIVE PERCENT (BEAKER) (test 3 % lwdk=096) BASOPHILS RELATIVE PERCENT (BEAKER) (test 0 % dcza=377) NEUTROPHILS ABSOLUTE COUNT (BEAKER) (test 3.56 K/ L 1.78-5.38 xykx=023) LYMPHOCYTES ABSOLUTE COUNT (BEAKER) (test 0.48 K/ L 1.32-3.57 zgxx=301) MONOCYTES ABSOLUTE COUNT (BEAKER) (test ggqb=386) 0.80 K/ L 0.30-0.82 EOSINOPHILS ABSOLUTE COUNT (BEAKER) (test 0.13 K/ L 0.04-0.54 ddhs=893) BASOPHILS ABSOLUTE COUNT (BEAKER) (test vkhi=900) 0.01 K/ L 0.01-0.08 IMMATURE GRANULOCYTES-RELATIVE PERCENT (BEAKER) 1 % 0-1 (test hdmu=7425) POCT-GLUCOSE [id number] 21:24:00 Test Item Value Reference Range Comments POC-GLUCOSE METER (BEAKER) 137 mg/dL 70-110 TESTED AT [address] (test oclg=3232) [place] [address] POCT-GLUCOSE [id number] 17:52:00 Test Item Value Reference Range Comments POC-GLUCOSE METER (BEAKER) 166 mg/dL 70-110 TESTED AT [address] (test rvps=0712) [place] [address] BASIC METABOLIC [id number] 17:48:00 Test Item Value Reference Range Comments SODIUM (BEAKER) (test 128 meq/L 136-145 nbxj=560) POTASSIUM (BEAKER) (test 4.0 meq/L 3.5-5.1 klwa=517) CHLORIDE (BEAKER) (test 97 meq/L 98-107 mktj=041) CO2 (BEAKER) (test 23 meq/L 22-29 xxya=522) BLOOD UREA NITROGEN 24 mg/dL 7-21 (BEAKER) (test uxyt=875) CREATININE (BEAKER) (test 1.25 mg/dL 0.57-1.25 gqdw=329) GLUCOSE RANDOM (BEAKER) 123 mg/dL 70-105 (test qutv=793) CALCIUM (BEAKER) (test 8.9 mg/dL 8.4-10.2 sooj=319) EGFR (BEAKER) (test 60 mL/min/1.73 sq m ESTIMATED GFR IS NOT pyhk=4487) ACCURATE CREATININE CLEARANCE IN PREDICTING GLOMERULAR FILTRATION RATE. ESTIMATED GFR IS NOT APPLICABLE FOR DIALYSIS PATIENTS. POCT-GLUCOSE [id number] 12:18:00 Test Item Value Reference Range Comments POC-GLUCOSE METER (BEAKER) 152 mg/dL 70-110 TESTED AT [address] (test vlsz=5024) [place] [address] POCT-GLUCOSE [id number] 09:31:00 Test Item Value Reference Range Comments POC-GLUCOSE METER (BEAKER) 142 mg/dL 70-110 TESTED AT [address] (test xioh=1594) [place] [address] BASIC METABOLIC [id number] 09:03:00 Test Item Value Reference Range Comments SODIUM (BEAKER) (test 125 meq/L 136-145 ozfe=042) POTASSIUM (BEAKER) (test 5.1 meq/L 3.5-5.1 Specimen slightly iasw=154) hemolyzed CHLORIDE (BEAKER) (test 95 meq/L 98-107 elsj=227) CO2 (BEAKER) (test 23 meq/L 22-29 lkpw=426) BLOOD UREA NITROGEN 26 mg/dL 7-21 (BEAKER) (test wayw=612) CREATININE (BEAKER) (test 1.25 mg/dL 0.57-1.25 Specimen slightly wyew=086) hemolyzed GLUCOSE RANDOM (BEAKER) 99 mg/dL 70-105 (test alki=654) CALCIUM (BEAKER) (test 9.0 mg/dL 8.4-10.2 giky=771) EGFR (BEAKER) (test 60 mL/min/1.73 sq m ESTIMATED GFR IS NOT kaxj=9058) ACCURATE CREATININE CLEARANCE IN PREDICTING GLOMERULAR FILTRATION RATE. ESTIMATED GFR IS NOT APPLICABLE FOR DIALYSIS PATIENTS. POCT-GLUCOSE [id number] 08:38:00 Test Item Value Reference Range Comments POC-GLUCOSE METER (BEAKER) 171 mg/dL 70-110 TESTED AT [address] (test gcbp=8378) [place] [address] [id number] 05:30:00 Test Item Value Reference Range Comments PHOSPHORUS (BEAKER) (test ngxv=158) 2.9 mg/dL 2.3-4.7 [id number] 05:30:00 Test Item Value Reference Range Comments MAGNESIUM (BEAKER) (test cozp=397) 2.2 mg/dL 1.6-2.6 COMPREHENSIVE METABOLIC [id number] 05:30:00 Test Item Value Reference Range Comments TOTAL PROTEIN (BEAKER) 5.2 gm/dL 6.0-8.3 (test pwto=989) ALBUMIN (BEAKER) (test 3.4 g/dL 3.5-5.0 pzst=1267) ALKALINE PHOSPHATASE 134 U/L 40-150 (BEAKER) (test efyt=593) BILIRUBIN TOTAL (BEAKER) 2.3 mg/dL 0.2-1.2 (test zahk=420) SODIUM (BEAKER) (test 124 meq/L 136-145 xvpb=952) POTASSIUM (BEAKER) (test 4.9 meq/L 3.5-5.1 nocm=286) CHLORIDE (BEAKER) (test 94 meq/L 98-107 pgru=713) CO2 (BEAKER) (test 24 meq/L 22-29 kicz=832) BLOOD UREA NITROGEN 27 mg/dL 7-21 (BEAKER) (test xftw=497) CREATININE (BEAKER) (test 1.27 mg/dL 0.57-1.25 lpxd=871) GLUCOSE RANDOM (BEAKER) 122 mg/dL 70-105 (test nzmm=403) CALCIUM (BEAKER) (test 9.2 mg/dL 8.4-10.2 tmnn=385) AST (SGOT) (BEAKER) (test 24 U/L 5-34 oiex=947) ALT (SGPT) (BEAKER) (test 10 U/L 6-55 uwih=566) EGFR (BEAKER) (test 59 mL/min/1.73 sq m ESTIMATED GFR IS NOT vvso=2954) ACCURATE CREATININE CLEARANCE IN PREDICTING GLOMERULAR FILTRATION RATE. ESTIMATED GFR IS NOT APPLICABLE FOR DIALYSIS PATIENTS. BILIRUBIN, [id number] 05:30:00 Test Item Value Reference Range Comments BILIRUBIN DIRECT (BEAKER) (test elmz=225) 1.5 mg/dL 0.1-0.5 PROTHROMBIN [id number] 05:09:00 Test Item Value Reference Range Comments PROTIME (BEAKER) (test rbrl=508) 22.3 seconds 11.7-14.7 INR (BEAKER) (test fikf=797) 2.0 <=5.9 RECOMMENDED COUMADIN/WARFARIN INR THERAPY RANGESSTANDARD DOSE: 2.0 - 3.0 Includes: PROPHYLAXIS forvenous thrombosis, systemic embolization; TREATMENT for venous thrombosis and/or pulmonary embolus.HIGH RISK: Target INR is 2.5-3.5 for patients with mechanical heart valves.CBC W/PLT COUNT & AUTO [id number] 04:59:00 Test Item Value Reference Range Comments WHITE BLOOD CELL COUNT (BEAKER) (test alco=348) 5.0 K/ L 3.5-10.5 RED BLOOD CELL COUNT (BEAKER) (test qbff=458) 2.24 M/ L 4.63-6.08 HEMOGLOBIN (BEAKER) (test bbxl=566) 7.2 GM/DL 13.7-17.5 HEMATOCRIT (BEAKER) (test mdac=544) 20.8 % 40.1-51.0 MEAN CORPUSCULAR VOLUME (BEAKER) (test tziy=128) 92.9 fL 79.0-92.2 MEAN CORPUSCULAR HEMOGLOBIN (BEAKER) (test 32.1 pg 25.7-32.2 wmco=733) MEAN CORPUSCULAR HEMOGLOBIN CONC (BEAKER) (test 34.6 GM/DL 32.3-36.5 btum=239) RED CELL DISTRIBUTION WIDTH (BEAKER) (test 14.2 % 11.6-14.4 kjln=786) PLATELET COUNT (BEAKER) (test wvqr=759) 56 K/CU MM 150-450 MEAN PLATELET VOLUME (BEAKER) (test eiwq=104) 8.9 fL 9.4-12.4 NUCLEATED RED BLOOD CELLS (BEAKER) (test 0 /100 WBC 0-0 sluj=577) NEUTROPHILS RELATIVE PERCENT (BEAKER) (test 82 % cknp=907) LYMPHOCYTES RELATIVE PERCENT (BEAKER) (test 5 % smmy=553) MONOCYTES RELATIVE PERCENT (BEAKER) (test 12 % hbfk=351) EOSINOPHILS RELATIVE PERCENT (BEAKER) (test 0 % jxvi=593) BASOPHILS RELATIVE PERCENT (BEAKER) (test 0 % ybjg=049) NEUTROPHILS ABSOLUTE COUNT (BEAKER) (test 4.12 K/ L 1.78-5.38 apph=121) LYMPHOCYTES ABSOLUTE COUNT (BEAKER) (test 0.26 K/ L 1.32-3.57 xqjp=646) MONOCYTES ABSOLUTE COUNT (BEAKER) (test eoyo=203) 0.59 K/ L 0.30-0.82 EOSINOPHILS ABSOLUTE COUNT (BEAKER) (test 0.00 K/ L 0.04-0.54 hujk=590) BASOPHILS ABSOLUTE COUNT (BEAKER) (test sgda=595) 0.00 K/ L 0.01-0.08 IMMATURE GRANULOCYTES-RELATIVE PERCENT (BEAKER) 1 % 0-1 (test ibmr=7510) CALCIUM, [id number] 04:57:00 Test Item Value Reference Range Comments CALCIUM IONIZED (BEAKER) (test mpza=054) 1.14 mmol/L 1.12-1.27 PH, BLOOD (BEAKER) (test qwro=6876) 7.39 POCT-GLUCOSE [id number] 00:41:00 Test Item Value Reference Range Comments POC-GLUCOSE METER (BEAKER) 186 mg/dL 70-[address] [facility] [address] [facility] (test hoxl=4778) [facility] [address] CORTISOL,60 [id number] 23:00:00 Test Item Value Reference Range Comments CORTISOL BASELINE NETWORKED (BEAKER) (test 7.5 mcg/dL qcdg=5280) CORTISOL 30 MINUTE NETWORKED (BEAKER) (test 14.1 mcg/dL dhtn=4348) CORTISOL, 60 MINUTE (BEAKER) (test epuh=6324) 18.9 ug/dL ACTH STIMULATION TEST INTERPRETATION GUIDELINES(Synonyms: [...] serum cortisollevel 60 minutes after cosyntropin administration.CORTISOL,30 [id number] 22:05:00 Test Item Value Reference Range Comments CORTISOL BASELINE NETWORKED (BEAKER) (test 7.5 mcg/dL jmcc=1404) CORTISOL, 30 MINUTE (BEAKER) (test zovz=0491) 14.1 ug/dL ACTH STIMULATION TEST INTERPRETATION GUIDELINES(Synonyms: [...] study by Mindy et al (NEVAEH 2000,283( 8):[id number]), the ACTH Stimulation Test provides important prognostic [...] cortisollevel 60 minutes after cosyntropin administration.BASIC METABOLIC [id number] 21:42:00 Test Item Value Reference Range Comments SODIUM (BEAKER) (test 123 meq/L 136-145 kzgh=662) POTASSIUM (BEAKER) (test 4.3 meq/L 3.5-5.1 trlp=450) CHLORIDE (BEAKER) (test 93 meq/L 98-107 smkw=174) CO2 (BEAKER) (test 24 meq/L 22-29 lwst=628) BLOOD UREA NITROGEN 29 mg/dL 7-21 (BEAKER) (test xdty=229) CREATININE (BEAKER) (test 1.38 mg/dL 0.57-1.25 iezc=855) GLUCOSE RANDOM (BEAKER) 109 mg/dL 70-105 (test devr=135) CALCIUM (BEAKER) (test 9.2 mg/dL 8.4-10.2 qvoi=439) EGFR (BEAKER) (test 54 mL/min/1.73 sq m ESTIMATED GFR IS NOT gxqt=0161) ACCURATE CREATININE CLEARANCE IN PREDICTING GLOMERULAR FILTRATION RATE. ESTIMATED GFR IS NOT APPLICABLE FOR DIALYSIS PATIENTS. Call results to Dr Almendarez METABOLIC [id number] 18:03:00 Test Item Value Reference Range Comments SODIUM (BEAKER) (test 124 meq/L 136-145 nfkm=422) POTASSIUM (BEAKER) (test 4.6 meq/L 3.5-5.1 aqkd=472) CHLORIDE (BEAKER) (test 93 meq/L 98-107 xlov=329) CO2 (BEAKER) (test 25 meq/L 22-29 oyga=219) BLOOD UREA NITROGEN 32 mg/dL 7-21 (BEAKER) (test ojrn=470) CREATININE (BEAKER) (test 1.40 mg/dL 0.57-1.25 kdfz=477) GLUCOSE RANDOM (BEAKER) 94 mg/dL 70-105 (test mfyr=354) CALCIUM (BEAKER) (test 9.0 mg/dL 8.4-10.2 unlm=290) EGFR (BEAKER) (test 53 mL/min/1.73 sq m ESTIMATED GFR IS NOT wtag=1433) ACCURATE CREATININE CLEARANCE IN PREDICTING GLOMERULAR FILTRATION RATE. ESTIMATED GFR IS NOT APPLICABLE FOR DIALYSIS PATIENTS. BODY FLUID CELL COUNT WITH [id number] 13:54:00 Test Item Value Reference Range Comments APPEARANCE FLUID (BEAKER) (test wqtc=312) Slightly Hazy Clear COLOR FLUID (BEAKER) (test enan=194) Yellow Colorless, Straw RBC FLUID (BEAKER) (test upuh=619) 1000 /cu mm <=1 ADJUSTED WBC FLUID (BEAKER) (test waqa=6651) 54 /cu mm <=5 LINING CELLS (BEAKER) (test eedb=4839) 2 /cu mm <=1 NEUTROPHILS FLUID (BEAKER) (test qrax=8394) 6 % LYMPHS FLUID (BEAKER) (test apji=959) 25 % MONO/MACROPHAGE FLUID (BEAKER) (test 69 % nglc=719) EOSINOPHILS FLUID (BEAKER) (test nyqm=751) 0 % BASO FLUID (BEAKER) (test hguc=317) 0 % CONTAINER BODY FLUID (BEAKER) (test Sterile Vial tyxi=1547) ALBUMIN, BODY [id number] 13:45:00 Test Item Value Reference Range Comments ALBUMIN FLUID (BEAKER) (test cqwz=478) 0.8 gm/dL Reference Range: No Normals Assay performance has not been validated for this type of specimen.LACTATE DEHYDROGENASE (LDH), BODY [id number] 13:13:00 Test Item Value Reference Range Comments LACTATE DEHYDROGENASE FLUID (BEAKER) (test oezm=677) < U/L Absence of reference range indicates that normals have not been defined.Assay performance has not been validated for this type of specimen.GLUCOSE, BODY [id number] 13:13:00 Test Item Value Reference Range Comments GLUCOSE, BODY FLUID (BEAKER) (test hgnc=8151) 82 mg/dL Absence of reference range indicates that normals have not been defined.Assay performance has not been validated for this type of specimen.TRIGLYCERIDES, BODY [id number] 13:10:00 Test Item Value Reference Range Comments TRIGLYCERIDES FLUID (BEAKER) (test chzh=102) 39 mg/dL Reference Range: No Normals Assay performance has not been validated for this type of specimen.PROTEIN, BODY [id number] 13:09:00 Test Item Value Reference Range Comments PROTEIN FLUID (BEAKER) (test xskv=043) 1.2 g/dL Absence of reference range indicates that normals have not been defined.Assay performance has not been validated for this type of specimen.CORTISOL, [id number] 12:52:00 Test Item Value Reference Range Comments CORTISOL, BASELINE (BEAKER) (test mbmv=4469) 7.5 ug/dL ACTH STIMULATION TEST INTERPRETATION GUIDELINES(Synonyms: [...] study by Mindy et al (NEVAEH 2000,283( 8):5764-45), the ACTH Stimulation Test provides important prognostic [...] cortisollevel 60 minutes after cosyntropin administration.BASIC METABOLIC [id number] 12:40:00 Test Item Value Reference Range Comments SODIUM (BEAKER) (test 119 meq/L 136-145 mmhw=276) POTASSIUM (BEAKER) (test 5.2 meq/L 3.5-5.1 srew=900) CHLORIDE (BEAKER) (test 90 meq/L 98-107 dhji=117) CO2 (BEAKER) (test 23 meq/L 22-29 mhxt=044) BLOOD UREA NITROGEN 34 mg/dL 7-21 (BEAKER) (test uvmj=927) CREATININE (BEAKER) (test 1.46 mg/dL 0.57-1.25 llso=148) GLUCOSE RANDOM (BEAKER) 84 mg/dL 70-105 (test xrhb=969) CALCIUM (BEAKER) (test 8.8 mg/dL 8.4-10.2 lzel=210) EGFR (BEAKER) (test 51 mL/min/1.73 sq m ESTIMATED GFR IS NOT pzne=6334) ACCURATE CREATININE CLEARANCE IN PREDICTING GLOMERULAR FILTRATION RATE. ESTIMATED GFR IS NOT APPLICABLE FOR DIALYSIS PATIENTS. Specimen slightly ictericRAD, CHEST, 1 VIEW, NON [id number] 11:50:00Reason for exam:->coughShould this be performed at the bedside?->YesFINAL REPORT Chest one view compared to May 12, 2018 Discussion: There is diffuse interstitial prominence. No effusion or pneumothorax. Heart size normal. IMPRESSIONS: No changeSigned: Karina Pugh MDReport Verified Date/ Time: 08/26/2018 11:50:19 Reading Location: [facility] Reading Room BASIC METABOLIC [id number] 09:35:00 Test Item Value Reference Range Comments SODIUM (BEAKER) (test 119 meq/L 136-145 fhfv=202) POTASSIUM (BEAKER) (test 4.9 meq/L 3.5-5.1 jnak=601) CHLORIDE (BEAKER) (test 89 meq/L 98-107 ggfm=833) CO2 (BEAKER) (test 23 meq/L 22-29 uccv=571) BLOOD UREA NITROGEN 36 mg/dL 7-21 (BEAKER) (test cjmh=707) CREATININE (BEAKER) (test 1.46 mg/dL 0.57-1.25 ypue=920) GLUCOSE RANDOM (BEAKER) 83 mg/dL 70-105 (test sedw=903) CALCIUM (BEAKER) (test 8.8 mg/dL 8.4-10.2 iris=263) EGFR (BEAKER) (test 51 mL/min/1.73 sq m ESTIMATED GFR IS NOT uuvo=4685) ACCURATE CREATININE CLEARANCE IN PREDICTING GLOMERULAR FILTRATION RATE. ESTIMATED GFR IS NOT APPLICABLE FOR DIALYSIS PATIENTS. POCT-GLUCOSE [id number] 05:56:00 Test Item Value Reference Range Comments POC-GLUCOSE METER (BEAKER) 86 mg/dL 70-110 TESTED AT [address] (test rpss=3803) [facility] [address] CBC W/PLT COUNT & AUTO [id number] 04:42:00 Test Item Value Reference Range Comments WHITE BLOOD CELL COUNT (BEAKER) (test obng=136) 10.5 K/ L 3.5-10.5 RED BLOOD CELL COUNT (BEAKER) (test cjwm=503) 2.37 M/ L 4.63-6.08 HEMOGLOBIN (BEAKER) (test hnlx=850) 7.4 GM/DL 13.7-17.5 HEMATOCRIT (BEAKER) (test ngnc=899) 21.6 % 40.1-51.0 MEAN CORPUSCULAR VOLUME (BEAKER) (test xihu=879) 91.1 fL 79.0-92.2 MEAN CORPUSCULAR HEMOGLOBIN (BEAKER) (test 31.2 pg 25.7-32.2 irrf=379) MEAN CORPUSCULAR HEMOGLOBIN CONC (BEAKER) (test 34.3 GM/DL 32.3-36.5 buht=942) RED CELL DISTRIBUTION WIDTH (BEAKER) (test 14.4 % 11.6-14.4 lvnk=462) PLATELET COUNT (BEAKER) (test zdcm=176) 67 K/CU MM 150-450 MEAN PLATELET VOLUME (BEAKER) (test lelc=479) 8.3 fL 9.4-12.4 NUCLEATED RED BLOOD CELLS (BEAKER) (test 0 /100 WBC 0-0 thwd=736) NEUTROPHILS RELATIVE PERCENT (BEAKER) (test 82 % iuhj=490) LYMPHOCYTES RELATIVE PERCENT (BEAKER) (test 4 % msjn=631) MONOCYTES RELATIVE PERCENT (BEAKER) (test 12 % huby=887) EOSINOPHILS RELATIVE PERCENT (BEAKER) (test 1 % epfc=771) BASOPHILS RELATIVE PERCENT (BEAKER) (test 0 % klbn=537) NEUTROPHILS ABSOLUTE COUNT (BEAKER) (test 8.62 K/ L 1.78-5.38 odad=054) LYMPHOCYTES ABSOLUTE COUNT (BEAKER) (test 0.45 K/ L 1.32-3.57 evea=010) MONOCYTES ABSOLUTE COUNT (BEAKER) (test akkw=458) 1.31 K/ L 0.30-0.82 EOSINOPHILS ABSOLUTE COUNT (BEAKER) (test 0.10 K/ L 0.04-0.54 dkib=188) BASOPHILS ABSOLUTE COUNT (BEAKER) (test qxyl=705) 0.00 K/ L 0.01-0.08 IMMATURE GRANULOCYTES-RELATIVE PERCENT (BEAKER) 1 % 0-1 (test xtkt=7894) COMPREHENSIVE METABOLIC [id number] 04:36:00 Test Item Value Reference Range Comments TOTAL PROTEIN (BEAKER) 4.9 gm/dL 6.0-8.3 (test ygak=852) ALBUMIN (BEAKER) (test 2.8 g/dL 3.5-5.0 ysnl=3475) ALKALINE PHOSPHATASE 146 U/L 40-150 (BEAKER) (test lats=781) BILIRUBIN TOTAL (BEAKER) 2.9 mg/dL 0.2-1.2 (test exjt=015) SODIUM (BEAKER) (test 118 meq/L 136-145 mapl=993) POTASSIUM (BEAKER) (test 5.2 meq/L 3.5-5.1 dffv=428) CHLORIDE (BEAKER) (test 90 meq/L 98-107 ioyq=189) CO2 (BEAKER) (test 23 meq/L 22-29 xkog=097) BLOOD UREA NITROGEN 37 mg/dL 7-21 (BEAKER) (test mair=863) CREATININE (BEAKER) (test 1.47 mg/dL 0.57-1.25 dkqs=922) GLUCOSE RANDOM (BEAKER) 65 mg/dL 70-105 (test ixmc=009) CALCIUM (BEAKER) (test 8.9 mg/dL 8.4-10.2 vsfd=262) AST (SGOT) (BEAKER) (test 29 U/L 5-34 qgly=101) ALT (SGPT) (BEAKER) (test 10 U/L 6-55 znda=821) EGFR (BEAKER) (test 50 mL/min/1.73 sq m ESTIMATED GFR IS NOT gdeu=5819) ACCURATE CREATININE CLEARANCE IN PREDICTING GLOMERULAR FILTRATION RATE. ESTIMATED GFR IS NOT APPLICABLE FOR DIALYSIS PATIENTS. Specimen slightly [id number] 04:33:00 Test Item Value Reference Range Comments PHOSPHORUS (BEAKER) (test zsop=447) 3.1 mg/dL 2.3-4.7 [id number] 04:33:00 Test Item Value Reference Range Comments MAGNESIUM (BEAKER) (test prjt=134) 2.1 mg/dL 1.6-2.6 CALCIUM, [id number] 04:05:00 Test Item Value Reference Range Comments CALCIUM IONIZED (BEAKER) (test vknu=838) 1.13 mmol/L 1.12-1.27 PH, BLOOD (BEAKER) (test bckk=9007) 7.38 BASIC METABOLIC [id number] 01:34:00 Test Item Value Reference Range Comments SODIUM (BEAKER) (test 117 meq/L 136-145 mhoc=003) POTASSIUM (BEAKER) (test 4.9 meq/L 3.5-5.1 gytq=516) CHLORIDE (BEAKER) (test 89 meq/L 98-107 wmrh=212) CO2 (BEAKER) (test 22 meq/L 22-29 likm=289) BLOOD UREA NITROGEN 37 mg/dL 7-21 (BEAKER) (test kbuc=723) CREATININE (BEAKER) (test 1.52 mg/dL 0.57-1.25 ajst=753) GLUCOSE RANDOM (BEAKER) 67 mg/dL 70-105 (test vkfn=436) CALCIUM (BEAKER) (test 9.1 mg/dL 8.4-10.2 azvj=475) EGFR (BEAKER) (test 48 mL/min/1.73 sq m ESTIMATED GFR IS NOT cpam=8846) ACCURATE CREATININE CLEARANCE IN PREDICTING GLOMERULAR FILTRATION RATE. ESTIMATED GFR IS NOT APPLICABLE FOR DIALYSIS PATIENTS. Specimen slightly ictericU/S, ABDOMINAL, [id number] 23:49:00Abdomen limited area? Add comment if clarification [...] Verified Date/Time: 08/25/2018 23:49:36 Reading Location: [facility] C013Y CT Body Reading Room POCT-GLUCOSE [id number] 23:16:00 Test Item Value Reference Range Comments POC-GLUCOSE METER (BEAKER) 89 mg/dL 70-[address] [facility] [address] [facility] (test alov=2073) [facility] [address] COMPREHENSIVE METABOLIC [id number] 21:15:00 Test Item Value Reference Range Comments TOTAL PROTEIN (BEAKER) 5.4 gm/dL 6.0-8.3 (test enez=477) ALBUMIN (BEAKER) (test 3.1 g/dL 3.5-5.0 wuxs=1838) ALKALINE PHOSPHATASE 164 U/L 40-150 (BEAKER) (test wuiv=074) BILIRUBIN TOTAL (BEAKER) 3.1 mg/dL 0.2-1.2 (test uttk=674) SODIUM (BEAKER) (test 116 meq/L 136-145 blwt=193) POTASSIUM (BEAKER) (test 5.0 meq/L 3.5-5.1 ildy=706) CHLORIDE (BEAKER) (test 87 meq/L 98-107 fxfx=575) CO2 (BEAKER) (test 22 meq/L 22-29 vlbd=226) BLOOD UREA NITROGEN 38 mg/dL 7-21 (BEAKER) (test djup=194) CREATININE (BEAKER) (test 1.52 mg/dL 0.57-1.25 utiz=169) GLUCOSE RANDOM (BEAKER) 67 mg/dL 70-105 (test xmru=445) CALCIUM (BEAKER) (test 9.1 mg/dL 8.4-10.2 zoip=361) AST (SGOT) (BEAKER) (test 30 U/L 5-34 ynqt=544) ALT (SGPT) (BEAKER) (test 10 U/L 6-55 lkuv=403) EGFR (BEAKER) (test 48 mL/min/1.73 sq m ESTIMATED GFR IS NOT adti=8383) ACCURATE CREATININE CLEARANCE IN PREDICTING GLOMERULAR FILTRATION RATE. ESTIMATED GFR IS NOT APPLICABLE FOR DIALYSIS PATIENTS. Recheck and call Dr. Solorio with results [phone] slightly ictericBASIC METABOLIC [id number] 17:36:00 Test Item Value Reference Range Comments SODIUM (BEAKER) (test 119 meq/L 136-145 shtn=989) POTASSIUM (BEAKER) (test 5.0 meq/L 3.5-5.1 mlrh=984) CHLORIDE (BEAKER) (test 89 meq/L 98-107 anmy=267) CO2 (BEAKER) (test 22 meq/L 22-29 daai=409) BLOOD UREA NITROGEN 38 mg/dL 7-21 (BEAKER) (test cknf=014) CREATININE (BEAKER) (test 1.50 mg/dL 0.57-1.25 sgnl=209) GLUCOSE RANDOM (BEAKER) 70 mg/dL 70-105 (test hnzs=669) CALCIUM (BEAKER) (test 8.9 mg/dL 8.4-10.2 scml=927) EGFR (BEAKER) (test 49 mL/min/1.73 sq m ESTIMATED GFR IS NOT xvar=7876) ACCURATE CREATININE CLEARANCE IN PREDICTING GLOMERULAR FILTRATION RATE. ESTIMATED GFR IS NOT APPLICABLE FOR DIALYSIS PATIENTS. Specimen slightly ictericCT, CHEST, WITH HIGH RESOLUTION, INTERSTITAL LUNG [id number] 17:36:00Reason for exam:->follow up for lung noduleFINAL [...] Verified Date/Time: 08/25/2018 17:36:51 Reading Location: [facility] C013Y CT Body Reading Room CT, SPINE, LUMBAR, WO [id number] 17:06:00FINAL REPORT CT thoracic and lumbar spine [...] Bain Verified Date/Time: 08/25/2018 17:06:21 Reading Location: [facility] Radiology Reading Room CT, SPINE, THORACIC, WO [id number] 17:06:00FINAL REPORT CT thoracic and lumbar spine [...] Verified Date/Time: 08/25/2018 17: 06:21 Reading Location: [facility] Radiology Reading Room EOSINOPHIL SMEAR, [id number] 16:40:00 Test Item Value Reference Range Comments EOSINOPHIL SMEAR, URINE (BEAKER) (test No EOS seen No EOS seen jwjc=7232) SODIUM, RANDOM [id number] 15:13:00 Test Item Value Reference Range Comments SODIUM URINE (BEAKER) (test uqnr=229) < meq/L Reference Range: No NormalsCOMPREHENSIVE METABOLIC [id number] 15:12:00 Test Item Value Reference Range Comments TOTAL PROTEIN (BEAKER) 5.0 gm/dL 6.0-8.3 (test bhvg=660) ALBUMIN (BEAKER) (test 2.9 g/dL 3.5-5.0 avel=7405) ALKALINE PHOSPHATASE 154 U/L 40-150 (BEAKER) (test iuei=959) BILIRUBIN TOTAL (BEAKER) 3.1 mg/dL 0.2-1.2 (test bwtl=398) SODIUM (BEAKER) (test 116 meq/L 136-145 pnkp=473) POTASSIUM (BEAKER) (test 4.8 meq/L 3.5-5.1 dkiy=493) CHLORIDE (BEAKER) (test 87 meq/L 98-107 mvqs=028) CO2 (BEAKER) (test 24 meq/L 22-29 jcfa=329) BLOOD UREA NITROGEN 39 mg/dL 7-21 (BEAKER) (test mjdm=774) CREATININE (BEAKER) (test 1.53 mg/dL 0.57-1.25 nkiw=037) GLUCOSE RANDOM (BEAKER) 67 mg/dL 70-105 (test wsfz=564) CALCIUM (BEAKER) (test 8.6 mg/dL 8.4-10.2 lmbb=173) AST (SGOT) (BEAKER) (test 24 U/L 5-34 mnlj=012) ALT (SGPT) (BEAKER) (test 11 U/L 6-55 gujf=679) EGFR (BEAKER) (test 48 mL/min/1.73 sq m ESTIMATED GFR IS NOT etnf=7453) ACCURATE CREATININE CLEARANCE IN PREDICTING GLOMERULAR FILTRATION RATE. ESTIMATED GFR IS NOT APPLICABLE FOR DIALYSIS PATIENTS. Specimen slightly ictericPROTEIN, RANDOM [id number] 15:12:00 Test Item Value Reference Range Comments PROTEIN, URINE (BEAKER) (test ueia=6025) < mg/dL 0-14 CREATININE, RANDOM [id number] 15:10:00 Test Item Value Reference Range Comments CREATININE URINE (BEAKER) (test drfd=462) 75.0 mg/dL Reference Range: No NormalsURINALYSIS W/ [id number] 14:55:00 Test Item Value Reference Range Comments COLOR (BEAKER) (test fgwy=007) Yellow CLARITY (BEAKER) (test oyek=842) Hazy SPECIFIC GRAVITY UA (BEAKER) (test xtwi=827) 1.009 1.001-1.035 PH UA (BEAKER) (test zfvf=966) 5.5 5.0-8.0 PROTEIN UA (BEAKER) (test krwf=694) Negative Negative GLUCOSE UA (BEAKER) (test cgdt=618) Negative Negative KETONES UA (BEAKER) (test yacj=861) Negative Negative BILIRUBIN UA (BEAKER) (test uqws=114) Negative Negative BLOOD UA (BEAKER) (test dxdn=351) Small Negative NITRITE UA (BEAKER) (test wxpj=453) Negative Negative LEUKOCYTE ESTERASE UA (BEAKER) (test ofmy=767) Negative Negative UROBILINOGEN UA (BEAKER) (test upbu=000) 0.2 mg/dL 0.2-1.0 RBC UA (BEAKER) (test aqze=657) 20 /HPF WBC UA (BEAKER) (test xyqs=556) 27 /HPF SQUAMOUS EPITHELIAL (BEAKER) (test jmqs=489) 18 /HPF SOURCE(BEAKER) (test feri=6571) URINALYSIS W/ REFLEX URINE [id number] 14:47:00 Test Item Value Reference Range Comments COLOR (BEAKER) (test whcf=821) Yellow CLARITY (BEAKER) (test lqdq=394) Hazy SPECIFIC GRAVITY UA (BEAKER) (test ynkp=138) 1.010 1.001-1.035 PH UA (BEAKER) (test sick=937) 5.5 5.0-8.0 PROTEIN UA (BEAKER) (test soic=193) Negative Negative GLUCOSE UA (BEAKER) (test htdh=576) Negative Negative KETONES UA (BEAKER) (test dbzm=348) Negative Negative BILIRUBIN UA (BEAKER) (test jyfe=044) Negative Negative BLOOD UA (BEAKER) (test lvig=221) Small Negative NITRITE UA (BEAKER) (test eypn=393) Negative Negative LEUKOCYTE ESTERASE UA (BEAKER) (test cbmx=526) Negative Negative UROBILINOGEN UA (BEAKER) (test wngk=031) 0.2 mg/dL 0.2-1.0 RBC UA (BEAKER) (test nktp=245) 38 /HPF WBC UA (BEAKER) (test ftvj=746) 7 /HPF SQUAMOUS EPITHELIAL (BEAKER) (test vhtj=131) 18 /HPF AMORPHOUS CRYSTALS (BEAKER) (test bnby=2818) Rare SOURCE(BEAKER) (test fjtk=2523) OSMOLALITY, [id number] 14:40:00 Test Item Value Reference Range Comments OSMOLALITY URINE (BEAKER) (test xmbx=862) 284 mOsm/kg 40-1,400 [id number] 13:34:00 Test Item Value Reference Range Comments PROCALCITONIN (BEAKER) (test ejkj=2509) 0.25 ng/mL <0.05 SEPSIS RISK (ng/mL)Low: 0.05-0.50Intermediate: 0.51-2.00High: & gt;=2.01OSMOLALITY, [id number] 12:43:00 Test Item Value Reference Range Comments OSMOLALITY URINE (BEAKER) (test fvic=787) 316 mOsm/kg 40-1,400 OSMOLALITY, [id number] 12:41:00 Test Item Value Reference Range Comments OSMOLALITY, SERUM (BEAKER) (test rzmt=198) 259 mOsm/kg 275-295 TSH/FREE T4 IF [id number] 11:36:00 Test Item Value Reference Range Comments THYROID STIMULATING HORMONE (BEAKER) (test 2.55 uIU/mL 0.35-4.94 jvwf=189) [id number] 11:34:00 Test Item Value Reference Range Comments CORTISOL, TOTAL (BEAKER) (test pbxn=9629) 7.9 ug/dL 3.7-19.4 SODIUM, RANDOM [id number] 11:34:00 Test Item Value Reference Range Comments SODIUM URINE (BEAKER) (test fqms=813) < meq/L Reference Range: No NormalsBASIC METABOLIC [id number] 11:24:00 Test Item Value Reference Range Comments SODIUM (BEAKER) (test 113 meq/L 136-145 hiie=524) POTASSIUM (BEAKER) (test 5.3 meq/L 3.5-5.1 bdlq=000) CHLORIDE (BEAKER) (test 86 meq/L 98-107 nssv=695) CO2 (BEAKER) (test 21 meq/L 22-29 mird=310) BLOOD UREA NITROGEN 39 mg/dL 7-21 (BEAKER) (test qpln=783) CREATININE (BEAKER) (test 1.57 mg/dL 0.57-1.25 ebpu=519) GLUCOSE RANDOM (BEAKER) 64 mg/dL 70-105 (test gnza=680) CALCIUM (BEAKER) (test 9.1 mg/dL 8.4-10.2 qetg=828) EGFR (BEAKER) (test 46 mL/min/1.73 sq m ESTIMATED GFR IS NOT yhgg=9516) ACCURATE CREATININE CLEARANCE IN PREDICTING GLOMERULAR FILTRATION RATE. ESTIMATED GFR IS NOT APPLICABLE FOR DIALYSIS PATIENTS. Specimen slightly ictericURIC [id number] 11:21:00 Test Item Value Reference Range Comments URIC ACID (BEAKER) (test czyf=039) 8.2 mg/dL 2.6-7.2 Specimen slightly ictericCREATININE, RANDOM [id number] 11:21:00 Test Item Value Reference Range Comments CREATININE URINE (BEAKER) (test jifm=637) 81.9 mg/dL Reference Range: No NormalsPOTASSIUM, RANDOM [id number] 11:21:00 Test Item Value Reference Range Comments POTASSIUM URINE (BEAKER) (test rgbf=039) 19.2 meq/L Reference Range: No NormalsCBC W/PLT COUNT & AUTO [id number] 10: 20:00 Test Item Value Reference Range Comments WHITE BLOOD CELL COUNT (BEAKER) (test mtom=468) 10.9 K/ L 3.5-10.5 RED BLOOD CELL COUNT (BEAKER) (test qlrv=820) 2.46 M/ L 4.63-6.08 HEMOGLOBIN (BEAKER) (test cmzv=051) 7.9 GM/DL 13.7-17.5 HEMATOCRIT (BEAKER) (test yixy=525) 22.2 % 40.1-51.0 MEAN CORPUSCULAR VOLUME (BEAKER) (test mojj=958) 90.2 fL 79.0-92.2 MEAN CORPUSCULAR HEMOGLOBIN (BEAKER) (test 32.1 pg 25.7-32.2 nxrp=208) MEAN CORPUSCULAR HEMOGLOBIN CONC (BEAKER) (test 35.6 GM/DL 32.3-36.5 mrkt=574) RED CELL DISTRIBUTION WIDTH (BEAKER) (test 14.2 % 11.6-14.4 whin=788) PLATELET COUNT (BEAKER) (test vmfc=799) 82 K/CU MM 150-450 MEAN PLATELET VOLUME (BEAKER) (test dddz=241) 8.3 fL 9.4-12.4 NUCLEATED RED BLOOD CELLS (BEAKER) (test 0 /100 WBC 0-0 jsks=465) (CELLAVISION MANUAL DIFF)2018-08-25 10:20:00 Test Item Value Reference Range Comments NEUTROPHILS - REL (CELLAVISION)(BEAKER) (test 80 % vmck=3957) LYMPHOCYTES - REL (CELLAVISION)(BEAKER) (test 2 % gpmf=9849) MONOCYTES - REL (CELLAVISION)(BEAKER) (test 6 % ezmy=3033) BANDS - REL (CELLAVISION)(BEAKER) (test 12 % 0-10 ragf=1819) NEUTROPHILS - ABS (CELLAVISION)(BEAKER) (test 8.72 K/ul 1.78-5.38 iffr=8010) LYMPHOCYTES - ABS (CELLAVISION)(BEAKER) (test 0.22 K/ul 1.32-3.57 xkxv=0183) MONOCYTES - ABS (CELLAVISION)(BEAKER) (test 0.65 K/uL 0.30-0.82 ohfn=0273) BANDS - ABS (CELLAVISION)(BEAKER) (test 1.31 K/uL 0.00-0.80 rvoz=6739) TOTAL COUNTED (BEAKER) (test hyyq=3651) 100 WBC MORPHOLOGY (BEAKER) (test rbsu=705) Normal PLT MORPHOLOGY (BEAKER) (test chve=957) Normal POLYCHROMATOPHILLIC RBCS(BEAKER) (test wrev=505) 2+ moderate ANISOCYTOSIS (BEAKER) (test dexw=125) 2+ moderate POIKILOCYTES (BEAKER) (test htno=763) 2+ moderate ARTIFACT (CELLAVISION)(BEAKER) (test rswy=8889) Present PLATELET CONCENTRATION (CELLAVISION)(BEAKER) Decreased (test hflf=7976) Received comment: User comments: Slide comments:COMPREHENSIVE METABOLIC [id number] 09:30:00 Test Item Value Reference Range Comments TOTAL PROTEIN (BEAKER) 5.2 gm/dL 6.0-8.3 (test vvka=881) ALBUMIN (BEAKER) (test 3.0 g/dL 3.5-5.0 clyc=0595) ALKALINE PHOSPHATASE 158 U/L 40-150 (BEAKER) (test zykj=516) BILIRUBIN TOTAL (BEAKER) 2.9 mg/dL 0.2-1.2 (test wfmh=144) SODIUM (BEAKER) (test 111 meq/L 136-145 ztuz=843) POTASSIUM (BEAKER) (test 5.5 meq/L 3.5-5.1 snwr=385) CHLORIDE (BEAKER) (test 87 meq/L 98-107 eoyq=374) CO2 (BEAKER) (test 20 meq/L 22-29 lryo=085) BLOOD UREA NITROGEN 39 mg/dL 7-21 (BEAKER) (test uwec=442) CREATININE (BEAKER) (test 1.55 mg/dL 0.57-1.25 avhe=289) GLUCOSE RANDOM (BEAKER) 79 mg/dL 70-105 (test cuaz=449) CALCIUM (BEAKER) (test 9.0 mg/dL 8.4-10.2 cjsg=903) AST (SGOT) (BEAKER) (test 27 U/L 5-34 edeq=181) ALT (SGPT) (BEAKER) (test 9 U/L 6-55 qcjw=835) EGFR (BEAKER) (test 47 mL/min/1.73 sq m ESTIMATED GFR IS NOT slpc=9633) ACCURATE CREATININE CLEARANCE IN PREDICTING GLOMERULAR FILTRATION RATE. ESTIMATED GFR IS NOT APPLICABLE FOR DIALYSIS PATIENTS. Specimen slightly ictericLACTIC ACID, VENOUS, WHOLE [id number] 09:15:00 Test Item Value Reference Range Comments LACTATE BLOOD VENOUS (2) (BEAKER) (test 0.9 mmol/L 0.5-2.2 dmyq=1642) Effective 02/28/2016: Units/Reference Range ChangeNew: 0.5-2.2 mmol/L Previous: 5 -20 mg/dLSpecimen slightly [id number] 09:01:00 Test Item Value Reference Range Comments AMMONIA (BEAKER) (test fqch=037) 83 mol/L 18-72 PT/[id number] 08:54:00 Test Item Value Reference Range Comments PROTIME (BEAKER) (test xdno=943) 21.4 seconds 11.7-14.7 INR (BEAKER) (test hvpe=500) 1.9 <=5.9 PARTIAL THROMBOPLASTIN TIME (BEAKER) (test 44.2 seconds 22.5-36.0 iafr=021) RECOMMENDED COUMADIN/WARFARIN INR THERAPY RANGESSTANDARD DOSE: 2.0 - 3.0 Includes: PROPHYLAXIS forvenous thrombosis, systemic embolization; TREATMENT for venous thrombosis and/or pulmonary embolus.HIGH RISK: Target INR is 2.5-3.5 for patients with mechanical heart valves.PROTHROMBIN TIME/[id number] 08:53: 00 Test Item Value Reference Range Comments PROTIME (BEAKER) (test nbqh=195) 21.4 seconds 11.7-14.7 INR (BEAKER) (test qorn=014) 1.9 <=5.9 RECOMMENDED COUMADIN/WARFARIN INR THERAPY RANGESSTANDARD DOSE: 2.0 - 3.0 Includes: PROPHYLAXIS forvenous thrombosis, systemic embolization; TREATMENT for venous thrombosis and/or pulmonary embolus.HIGH RISK: Target INR is 2.5-3.5 for patients with mechanical heart valves.COMPREHENSIVE METABOLIC [id number] 13:54:00 Test Item Value Reference Range Comments TOTAL PROTEIN (BEAKER) 6.2 gm/dL 6.0-8.3 (test zdec=455) ALBUMIN (BEAKER) (test 3.4 g/dL 3.5-5.0 alji=3104) ALKALINE PHOSPHATASE 190 U/L 40-150 (BEAKER) (test hmqb=697) BILIRUBIN TOTAL (BEAKER) 1.9 mg/dL 0.2-1.2 (test skre=310) SODIUM (BEAKER) (test 125 meq/L 136-145 euex=256) POTASSIUM (BEAKER) (test 5.0 meq/L 3.5-5.1 rqgu=881) CHLORIDE (BEAKER) (test 99 meq/L 98-107 sdgb=435) CO2 (BEAKER) (test 19 meq/L 22-29 ljat=698) BLOOD UREA NITROGEN 36 mg/dL 7-21 (BEAKER) (test huhh=542) CREATININE (BEAKER) (test 1.65 mg/dL 0.57-1.25 rolk=170) GLUCOSE RANDOM (BEAKER) 133 mg/dL 70-105 (test oimi=341) CALCIUM (BEAKER) (test 9.5 mg/dL 8.4-10.2 ulby=228) AST (SGOT) (BEAKER) (test 23 U/L 5-34 dppy=723) ALT (SGPT) (BEAKER) (test 12 U/L 6-55 zupk=979) EGFR (BEAKER) (test 44 mL/min/1.73 sq m ESTIMATED GFR IS NOT ohwq=6891) ACCURATE CREATININE CLEARANCE IN PREDICTING GLOMERULAR FILTRATION RATE. ESTIMATED GFR IS NOT APPLICABLE FOR DIALYSIS PATIENTS. BILIRUBIN, [id number] 13:54:00 Test Item Value Reference Range Comments BILIRUBIN DIRECT (BEAKER) (test wekm=179) 1.4 mg/dL 0.1-0.5 CBC W/PLT COUNT & AUTO [id number] 13:50:00 Test Item Value Reference Range Comments WHITE BLOOD CELL COUNT (BEAKER) (test zkrx=774) 6.8 K/ L 3.5-10.5 RED BLOOD CELL COUNT (BEAKER) (test bvuq=648) 3.01 M/ L 4.63-6.08 HEMOGLOBIN (BEAKER) (test qnxw=081) 9.5 GM/DL 13.7-17.5 HEMATOCRIT (BEAKER) (test peio=227) 28.3 % 40.1-51.0 MEAN CORPUSCULAR VOLUME (BEAKER) (test tbsa=582) 94.0 fL 79.0-92.2 MEAN CORPUSCULAR HEMOGLOBIN (BEAKER) (test 31.6 pg 25.7-32.2 tlwa=782) MEAN CORPUSCULAR HEMOGLOBIN CONC (BEAKER) (test 33.6 GM/DL 32.3-36.5 josb=494) RED CELL DISTRIBUTION WIDTH (BEAKER) (test 14.5 % 11.6-14.4 awgf=096) PLATELET COUNT (BEAKER) (test qqqu=391) 131 K/CU MM 150-450 MEAN PLATELET VOLUME (BEAKER) (test zvzp=856) 9.0 fL 9.4-12.4 NUCLEATED RED BLOOD CELLS (BEAKER) (test 0 /100 WBC 0-0 nbog=845) NEUTROPHILS RELATIVE PERCENT (BEAKER) (test 75 % zbkq=201) LYMPHOCYTES RELATIVE PERCENT (BEAKER) (test 7 % ennm=675) MONOCYTES RELATIVE PERCENT (BEAKER) (test 14 % hpcx=691) EOSINOPHILS RELATIVE PERCENT (BEAKER) (test 2 % lzgl=095) BASOPHILS RELATIVE PERCENT (BEAKER) (test 0 % gfli=748) NEUTROPHILS ABSOLUTE COUNT (BEAKER) (test 5.11 K/ L 1.78-5.38 sfoy=281) LYMPHOCYTES ABSOLUTE COUNT (BEAKER) (test 0.50 K/ L 1.32-3.57 cbmf=573) MONOCYTES ABSOLUTE COUNT (BEAKER) (test 0.94 K/ L 0.30-0.82 akwi=776) EOSINOPHILS ABSOLUTE COUNT (BEAKER) (test 0.12 K/ L 0.04-0.54 hnci=559) BASOPHILS ABSOLUTE COUNT (BEAKER) (test 0.03 K/ L 0.01-0.08 lxic=979) IMMATURE GRANULOCYTES-RELATIVE PERCENT (BEAKER) 1 % 0-1 (test afis=3364) PROTHROMBIN [id number] 13:46:00 Test Item Value Reference Range Comments PROTIME (BEAKER) (test gcyz=560) 19.5 seconds 11.7-14.7 INR (BEAKER) (test hlag=493) 1.7 <=5.9 RECOMMENDED COUMADIN/WARFARIN INR THERAPY RANGESSTANDARD DOSE: 2.0 - 3.0 Includes: PROPHYLAXIS forvenous thrombosis, systemic embolization; TREATMENT for venous thrombosis and/or pulmonary embolus.HIGH RISK: Target INR is 2.5-3.5 for patients with mechanical heart valves.BONE AND/OR JOINT IMAGING, WHOLE [id number] 16:45:00FINAL REPORT PROCEDURE: BONE SCAN, WHOLE BODY CPT CODE: [id number] INDICATION: L3 vertebral body lesion follow-up R91.1 [...] Verified Date/ Time: 08/05/2018 16:45:34 Reading Location: [address] [address] Reading Room NIR, VERTEBROPLASTY THORACIC, [id number] 17:23:00Reason for exam:->T11, T12, L2 compression fracturesAddendum [...] Date/Time: 06/04/2018 17:23:27 Reading Location : [address] Radiology Reading RoomAddendum EndsFINAL REPORT HISTORY: [...] Verified Date/Time: 06/03/2018 17:56:43 Reading Location : [place] [address] Angio Body Reading Room ALPHA FETOPROTEIN (AFP), TUMOR [id number] 15:20:00 Test Item Value Reference Range Comments ALPHA-FETOPROTEIN (BEAKER) (test bswz=7854) 2.2 ng/mL <10.0 COMPREHENSIVE METABOLIC [id number] 14:54:00 Test Item Value Reference Range Comments TOTAL PROTEIN (BEAKER) 6.5 gm/dL 6.0-8.3 (test wjix=890) ALBUMIN (BEAKER) (test 3.6 g/dL 3.5-5.0 zoaa=9921) ALKALINE PHOSPHATASE 342 U/L 40-150 (BEAKER) (test thtx=605) BILIRUBIN TOTAL (BEAKER) 4.2 mg/dL 0.2-1.2 (test lgmk=285) SODIUM (BEAKER) (test 128 meq/L 136-145 lpnd=483) POTASSIUM (BEAKER) (test 4.6 meq/L 3.5-5.1 gyqa=919) CHLORIDE (BEAKER) (test 100 meq/L 98-107 dgsq=092) CO2 (BEAKER) (test 21 meq/L 22-29 bnsf=276) BLOOD UREA NITROGEN 21 mg/dL 7-21 (BEAKER) (test iqlf=122) CREATININE (BEAKER) (test 1.37 mg/dL 0.57-1.25 eyxs=484) GLUCOSE RANDOM (BEAKER) 108 mg/dL 70-105 (test uabu=686) CALCIUM (BEAKER) (test 9.5 mg/dL 8.4-10.2 wivv=301) AST (SGOT) (BEAKER) (test 25 U/L 5-34 ryef=028) ALT (SGPT) (BEAKER) (test 10 U/L 6-55 lcyq=602) EGFR (BEAKER) (test 54 mL/min/1.73 sq m ESTIMATED GFR IS NOT txmv=9246) ACCURATE CREATININE CLEARANCE IN PREDICTING GLOMERULAR FILTRATION RATE. ESTIMATED GFR IS NOT APPLICABLE FOR DIALYSIS PATIENTS. Specimen slightly ictericBILIRUBIN, [id number] 14:54:00 Test Item Value Reference Range Comments BILIRUBIN DIRECT (BEAKER) (test fmzh=545) 2.1 mg/dL 0.1-0.5 CBC W/PLT COUNT & AUTO [id number] 14:52:00 Test Item Value Reference Range Comments WHITE BLOOD CELL COUNT (BEAKER) (test jiko=160) 3.9 K/ L 3.5-10.5 RED BLOOD CELL COUNT (BEAKER) (test fxit=265) 2.69 M/ L 4.63-6.08 HEMOGLOBIN (BEAKER) (test ypvo=982) 9.1 GM/DL 13.7-17.5 HEMATOCRIT (BEAKER) (test zutb=474) 27.3 % 40.1-51.0 MEAN CORPUSCULAR VOLUME (BEAKER) (test goss=216) 101.5 fL 79.0-92.2 MEAN CORPUSCULAR HEMOGLOBIN (BEAKER) (test 33.8 pg 25.7-32.2 cinx=156) MEAN CORPUSCULAR HEMOGLOBIN CONC (BEAKER) (test 33.3 GM/DL 32.3-36.5 rpkw=039) RED CELL DISTRIBUTION WIDTH (BEAKER) (test 18.6 % 11.6-14.4 ggbk=177) PLATELET COUNT (BEAKER) (test fgoq=250) 71 K/CU MM 150-450 MEAN PLATELET VOLUME (BEAKER) (test fomj=705) 9.6 fL 9.4-12.4 NUCLEATED RED BLOOD CELLS (BEAKER) (test 0 /100 WBC 0-0 nwgp=893) NEUTROPHILS RELATIVE PERCENT (BEAKER) (test 62 % mzrr=241) LYMPHOCYTES RELATIVE PERCENT (BEAKER) (test 16 % nboh=109) MONOCYTES RELATIVE PERCENT (BEAKER) (test 17 % yspr=144) EOSINOPHILS RELATIVE PERCENT (BEAKER) (test 5 % tcyg=883) BASOPHILS RELATIVE PERCENT (BEAKER) (test 0 % syrt=771) NEUTROPHILS ABSOLUTE COUNT (BEAKER) (test 2.41 K/ L 1.78-5.38 engg=843) LYMPHOCYTES ABSOLUTE COUNT (BEAKER) (test 0.62 K/ L 1.32-3.57 hqyo=437) MONOCYTES ABSOLUTE COUNT (BEAKER) (test aogr=808) 0.65 K/ L 0.30-0.82 EOSINOPHILS ABSOLUTE COUNT (BEAKER) (test 0.20 K/ L 0.04-0.54 qwjy=709) BASOPHILS ABSOLUTE COUNT (BEAKER) (test outp=407) 0.01 K/ L 0.01-0.08 IMMATURE GRANULOCYTES-RELATIVE PERCENT (BEAKER) 0 % 0-1 (test fzhs=0128) PROTHROMBIN [id number] 14:50:00 Test Item Value Reference Range Comments PROTIME (BEAKER) (test fths=386) 19.5 seconds 11.7-14.7 INR (BEAKER) (test xnqh=828) 1.7 <=5.9 RECOMMENDED COUMADIN/WARFARIN INR THERAPY RANGESSTANDARD DOSE: 2.0 - 3.0 Includes: PROPHYLAXIS forvenous thrombosis, systemic embolization; TREATMENT for venous thrombosis and/or pulmonary embolus.HIGH RISK: Target INR is 2.5-3.5 for patients with mechanical heart valves.BODY FLUID CULTURE + GRAM [id number] 13:19:00 Test Item Value Reference Range Comments CULTURE (BEAKER) (test tegc=4465) No growth GRAM STAIN RESULT (BEAKER) (test No WBCs ecgd=7229) GRAM STAIN RESULT (BEAKER) (test No organisms seen lchw=66130) [id number] 17:36:00 Test Item Value Reference Range Comments SODIUM (BEAKER) (test zgvv=076) 133 meq/L 136-145 POTASSIUM (BEAKER) (test voht=802) 3.2 meq/L 3.5-5.1 CHLORIDE (BEAKER) (test mpog=533) 102 meq/L 98-107 CO2 (BEAKER) (test vnfy=662) 21 meq/L 22-29 [id number] 13:21:00 Test Item Value Reference Range Comments SODIUM (BEAKER) (test xasj=228) 134 meq/L 136-145 POTASSIUM (BEAKER) (test juih=890) 3.0 meq/L 3.5-5.1 CHLORIDE (BEAKER) (test jjbp=109) 103 meq/L 98-107 CO2 (BEAKER) (test hbbu=178) 22 meq/L 22-29 CALCIUM, [id number] 04:54:00 Test Item Value Reference Range Comments CALCIUM IONIZED (BEAKER) (test loeq=137) 1.09 mmol/L 1.12-1.27 PH, BLOOD (BEAKER) (test beth=8405) 7.35 [id number] 04:04:00 Test Item Value Reference Range Comments PHOSPHORUS (BEAKER) (test bmzw=874) 2.4 mg/dL 2.3-4.7 [id number] 04:04:00 Test Item Value Reference Range Comments MAGNESIUM (BEAKER) (test djnw=993) 2.0 mg/dL 1.6-2.6 HEPATIC FUNCTION [id number] 04:04:00 Test Item Value Reference Range Comments TOTAL PROTEIN (BEAKER) (test nwmd=944) 5.8 gm/dL 6.0-8.3 ALBUMIN (BEAKER) (test dzmn=1328) 4.1 g/dL 3.5-5.0 BILIRUBIN TOTAL (BEAKER) (test wxrd=152) 3.9 mg/dL 0.2-1.2 BILIRUBIN DIRECT (BEAKER) (test pjfp=908) 2.0 mg/dL 0.1-0.5 ALKALINE PHOSPHATASE (BEAKER) (test oacj=294) 123 U/L 40-150 AST (SGOT) (BEAKER) (test hqil=964) 14 U/L 5-34 ALT (SGPT) (BEAKER) (test jcnx=980) < U/L 6-55 Specimen slightly ictericCOMPREHENSIVE METABOLIC [id number] 04:04:00 Test Item Value Reference Range Comments TOTAL PROTEIN (BEAKER) 5.8 gm/dL 6.0-8.3 (test hwuq=746) ALBUMIN (BEAKER) (test 4.1 g/dL 3.5-5.0 yojt=0289) ALKALINE PHOSPHATASE 123 U/L 40-150 (BEAKER) (test cxxi=641) BILIRUBIN TOTAL (BEAKER) 3.9 mg/dL 0.2-1.2 (test cimk=914) SODIUM (BEAKER) (test 135 meq/L 136-145 vpbr=199) POTASSIUM (BEAKER) (test 2.9 meq/L 3.5-5.1 kiec=023) CHLORIDE (BEAKER) (test 103 meq/L 98-107 hjht=616) CO2 (BEAKER) (test 21 meq/L 22-29 ceey=900) BLOOD UREA NITROGEN 18 mg/dL 7-21 (BEAKER) (test paip=134) CREATININE (BEAKER) (test 1.32 mg/dL 0.57-1.25 bgsk=430) GLUCOSE RANDOM (BEAKER) 126 mg/dL 70-105 (test txka=321) CALCIUM (BEAKER) (test 9.8 mg/dL 8.4-10.2 kvve=474) AST (SGOT) (BEAKER) (test 14 U/L 5-34 oynn=867) ALT (SGPT) (BEAKER) (test < U/L 6-55 cmfz=839) EGFR (BEAKER) (test 57 mL/min/1.73 sq m ESTIMATED GFR IS NOT okda=2330) ACCURATE CREATININE CLEARANCE IN PREDICTING GLOMERULAR FILTRATION RATE. ESTIMATED GFR IS NOT APPLICABLE FOR DIALYSIS PATIENTS. Specimen slightly ictericPROTHROMBIN [id number] 04:02:00 Test Item Value Reference Range Comments PROTIME (BEAKER) (test vglf=087) 25.1 seconds 11.7-14.7 INR (BEAKER) (test cqfu=378) 2.3 <=5.9 RECOMMENDED COUMADIN/WARFARIN INR THERAPY RANGESSTANDARD DOSE: 2.0 - 3.0 Includes: PROPHYLAXIS forvenous thrombosis, systemic embolization; TREATMENT for venous thrombosis and/or pulmonary embolus.HIGH RISK: Target INR is 2.5-3.5 for patients with mechanical heart valves.CBC W/PLT COUNT & AUTO [id number] 03:55:00 Test Item Value Reference Range Comments WHITE BLOOD CELL COUNT (BEAKER) (test mtif=600) 3.6 K/ L 3.5-10.5 RED BLOOD CELL COUNT (BEAKER) (test lnbd=802) 2.48 M/ L 4.63-6.08 HEMOGLOBIN (BEAKER) (test qxkx=183) 7.9 GM/DL 13.7-17.5 HEMATOCRIT (BEAKER) (test usok=634) 23.7 % 40.1-51.0 MEAN CORPUSCULAR VOLUME (BEAKER) (test kdna=456) 95.6 fL 79.0-92.2 MEAN CORPUSCULAR HEMOGLOBIN (BEAKER) (test 31.9 pg 25.7-32.2 epaj=435) MEAN CORPUSCULAR HEMOGLOBIN CONC (BEAKER) (test 33.3 GM/DL 32.3-36.5 lfcj=319) RED CELL DISTRIBUTION WIDTH (BEAKER) (test 18.8 % 11.6-14.4 idzn=785) PLATELET COUNT (BEAKER) (test llep=267) 38 K/CU MM 150-450 MEAN PLATELET VOLUME (BEAKER) (test tfsk=718) 9.3 fL 9.4-12.4 NUCLEATED RED BLOOD CELLS (BEAKER) (test 0 /100 WBC 0-0 ifdj=947) NEUTROPHILS RELATIVE PERCENT (BEAKER) (test 57 % sfqp=953) LYMPHOCYTES RELATIVE PERCENT (BEAKER) (test 15 % iquw=105) MONOCYTES RELATIVE PERCENT (BEAKER) (test 22 % xvuz=538) EOSINOPHILS RELATIVE PERCENT (BEAKER) (test 4 % vwiz=643) BASOPHILS RELATIVE PERCENT (BEAKER) (test 0 % enht=773) NEUTROPHILS ABSOLUTE COUNT (BEAKER) (test 2.09 K/ L 1.78-5.38 zwtu=010) LYMPHOCYTES ABSOLUTE COUNT (BEAKER) (test 0.54 K/ L 1.32-3.57 yrcq=170) MONOCYTES ABSOLUTE COUNT (BEAKER) (test utdq=041) 0.81 K/ L 0.30-0.82 EOSINOPHILS ABSOLUTE COUNT (BEAKER) (test 0.15 K/ L 0.04-0.54 nlch=803) BASOPHILS ABSOLUTE COUNT (BEAKER) (test iuqe=444) 0.01 K/ L 0.01-0.08 IMMATURE GRANULOCYTES-RELATIVE PERCENT (BEAKER) 1 % 0-1 (test vgcs=2794) [id number] 18:07:00 Test Item Value Reference Range Comments SODIUM (BEAKER) (test qcgc=874) 132 meq/L 136-145 POTASSIUM (BEAKER) (test 2.9 meq/L 3.5-5.1 Specimen slightly hemolyzed kqkd=447) CHLORIDE (BEAKER) (test 101 meq/L 98-107 ryxc=659) CO2 (BEAKER) (test lvio=528) 18 meq/L 22-29 LACTIC ACID, VENOUS, WHOLE [id number] 16:43:00 Test Item Value Reference Range Comments LACTATE BLOOD VENOUS (2) 1.6 mmol/L 0.5-2.2 Specimen slightly hemolyzed (BEAKER) (test ixqp=4634) Effective 02/28/2016: Units/Reference Range ChangeNew: 0.5-2.2 mmol/L Previous: 5 -20 mg/dLSpecimen slightly ictericBODY FLUID CULTURE + GRAM [id number] 12: 08:00 Test Item Value Reference Range Comments CULTURE (BEAKER) (test vnkc=5630) No growth GRAM STAIN RESULT (BEAKER) (test <1+ WBCs fugg=7248) GRAM STAIN RESULT (BEAKER) (test No organisms seen bqmy=17133) [id number] 08:10:00 Test Item Value Reference Range Comments PHOSPHORUS (BEAKER) (test wzqu=117) 2.8 mg/dL 2.3-4.7 [id number] 08:10:00 Test Item Value Reference Range Comments MAGNESIUM (BEAKER) (test qhni=060) 2.2 mg/dL 1.6-2.6 COMPREHENSIVE METABOLIC [id number] 08:10:00 Test Item Value Reference Range Comments TOTAL PROTEIN (BEAKER) 6.2 gm/dL 6.0-8.3 (test euyc=625) ALBUMIN (BEAKER) (test 4.4 g/dL 3.5-5.0 ugeo=4248) ALKALINE PHOSPHATASE 121 U/L 40-150 (BEAKER) (test euab=314) BILIRUBIN TOTAL (BEAKER) 4.4 mg/dL 0.2-1.2 (test svsy=832) SODIUM (BEAKER) (test 135 meq/L 136-145 webe=485) POTASSIUM (BEAKER) (test 2.8 meq/L 3.5-5.1 xtch=666) CHLORIDE (BEAKER) (test 102 meq/L 98-107 xkdd=667) CO2 (BEAKER) (test 21 meq/L 22-29 afoy=361) BLOOD UREA NITROGEN 20 mg/dL 7-21 (BEAKER) (test tpyl=095) CREATININE (BEAKER) (test 1.34 mg/dL 0.57-1.25 ptin=498) GLUCOSE RANDOM (BEAKER) 132 mg/dL 70-105 (test eslt=981) CALCIUM (BEAKER) (test 10.0 mg/dL 8.4-10.2 hrak=921) AST (SGOT) (BEAKER) (test 16 U/L 5-34 mhrw=669) ALT (SGPT) (BEAKER) (test 6 U/L 6-55 hbbj=878) EGFR (BEAKER) (test 56 mL/min/1.73 sq m ESTIMATED GFR IS NOT nqcr=8171) ACCURATE CREATININE CLEARANCE IN PREDICTING GLOMERULAR FILTRATION RATE. ESTIMATED GFR IS NOT APPLICABLE FOR DIALYSIS PATIENTS. Specimen slightly ictericHEPATIC FUNCTION [id number] 08:10:00 Test Item Value Reference Range Comments TOTAL PROTEIN (BEAKER) (test zcnz=234) 6.2 gm/dL 6.0-8.3 ALBUMIN (BEAKER) (test ihmr=8711) 4.4 g/dL 3.5-5.0 BILIRUBIN TOTAL (BEAKER) (test idbv=440) 4.4 mg/dL 0.2-1.2 BILIRUBIN DIRECT (BEAKER) (test whlz=383) 1.9 mg/dL 0.1-0.5 ALKALINE PHOSPHATASE (BEAKER) (test gwxw=514) 121 U/L 40-150 AST (SGOT) (BEAKER) (test blfr=215) 16 U/L 5-34 ALT (SGPT) (BEAKER) (test qidt=385) 6 U/L 6-55 Specimen slightly ictericCALCIUM, [id number] 07:20:00 Test Item Value Reference Range Comments CALCIUM IONIZED (BEAKER) (test zwkg=583) 1.01 mmol/L 1.12-1.27 PH, BLOOD (BEAKER) (test ijid=3787) 7.49 CBC W/PLT COUNT & AUTO [id number] 06:59:00 Test Item Value Reference Range Comments WHITE BLOOD CELL COUNT (BEAKER) (test ohiz=927) 4.1 K/ L 3.5-10.5 RED BLOOD CELL COUNT (BEAKER) (test jhal=987) 2.62 M/ L 4.63-6.08 HEMOGLOBIN (BEAKER) (test pcng=090) 8.2 GM/DL 13.7-17.5 HEMATOCRIT (BEAKER) (test uxpu=667) 24.9 % 40.1-51.0 MEAN CORPUSCULAR VOLUME (BEAKER) (test rqzr=891) 95.0 fL 79.0-92.2 MEAN CORPUSCULAR HEMOGLOBIN (BEAKER) (test 31.3 pg 25.7-32.2 sgzj=017) MEAN CORPUSCULAR HEMOGLOBIN CONC (BEAKER) (test 32.9 GM/DL 32.3-36.5 bbae=732) RED CELL DISTRIBUTION WIDTH (BEAKER) (test 18.6 % 11.6-14.4 nmxq=840) PLATELET COUNT (BEAKER) (test rqez=935) 38 K/CU MM 150-450 MEAN PLATELET VOLUME (BEAKER) (test suhr=203) 9.3 fL 9.4-12.4 NUCLEATED RED BLOOD CELLS (BEAKER) (test 0 /100 WBC 0-0 yust=287) NEUTROPHILS RELATIVE PERCENT (BEAKER) (test 66 % urgi=458) LYMPHOCYTES RELATIVE PERCENT (BEAKER) (test 12 % dcwr=542) MONOCYTES RELATIVE PERCENT (BEAKER) (test 18 % vlfy=541) EOSINOPHILS RELATIVE PERCENT (BEAKER) (test 3 % pqnf=438) BASOPHILS RELATIVE PERCENT (BEAKER) (test 1 % vbjc=954) NEUTROPHILS ABSOLUTE COUNT (BEAKER) (test 2.74 K/ L 1.78-5.38 ubcs=830) LYMPHOCYTES ABSOLUTE COUNT (BEAKER) (test 0.49 K/ L 1.32-3.57 mmwy=539) MONOCYTES ABSOLUTE COUNT (BEAKER) (test yhiw=563) 0.75 K/ L 0.30-0.82 EOSINOPHILS ABSOLUTE COUNT (BEAKER) (test 0.11 K/ L 0.04-0.54 ajyr=967) BASOPHILS ABSOLUTE COUNT (BEAKER) (test olhm=432) 0.02 K/ L 0.01-0.08 IMMATURE GRANULOCYTES-RELATIVE PERCENT (BEAKER) 1 % 0-1 (test hbfp=7207) PROTHROMBIN [id number] 06:56:00 Test Item Value Reference Range Comments PROTIME (BEAKER) (test tgve=209) 24.5 seconds 11.7-14.7 INR (BEAKER) (test zbfd=761) 2.2 <=5.9 RECOMMENDED COUMADIN/WARFARIN INR THERAPY RANGESSTANDARD DOSE: 2.0 - 3.0 Includes: PROPHYLAXIS forvenous thrombosis, systemic embolization; TREATMENT for venous thrombosis and/or pulmonary embolus.HIGH RISK: Target INR is 2.5-3.5 for patients with mechanical heart valves.BODY FLUID CELL COUNT WITH [id number] 18:36:00 Test Item Value Reference Range Comments APPEARANCE FLUID (BEAKER) (test njxo=051) Hazy Clear COLOR FLUID (BEAKER) (test ghis=700) Yellow Colorless, Straw RBC FLUID (BEAKER) (test lgnn=329) 2000 /cu mm <=1 ADJUSTED WBC FLUID (BEAKER) (test wvix=9638) 96 /cu mm <=5 LINING CELLS (BEAKER) (test vaqg=6694) 2 /cu mm <=1 NEUTROPHILS FLUID (BEAKER) (test joza=2224) 4 % LYMPHS FLUID (BEAKER) (test aplf=370) 11 % MONO/MACROPHAGE FLUID (BEAKER) (test pmbp=294) 85 % EOSINOPHILS FLUID (BEAKER) (test ihbc=057) 0 % BASO FLUID (BEAKER) (test ycjc=470) 0 % CONTAINER BODY FLUID (BEAKER) (test lrpx=3065) EDTA Tube U/S, [id number] 12:49:00Limit to 4L due to AKIReason for exam:-> ascitesFINAL REPORT Indication: Ascites. Technique: Ultrasound guided paracentesis. Findings:Preliminary ultrasound confirms ascites. A safe window was identified in the midline (suprapubic). The procedure was explained to the patient and informed consent was signed. The skin was marked and prepped in standard sterile fashion. 2% lidocaine was used for local anesthesia. A 5 Algerian needle catheter system was advanced into the peritoneal space. 3300 cc clear yellow fluid was taken off.Sample of the fluid was sent to the laboratory. Patient tolerated the procedure well. Impression: Ultrasound guided paracentesis. Signed: Jono Xiong MDReport Verified Date/ Time: 05/13/2018 12:49:12 Reading Location: [facility] [id number] Ultrasound Reading Room 12: 49 PMCALCIUM, [id number] 05:29:00 Test Item Value Reference Range Comments CALCIUM IONIZED (BEAKER) (test jgrh=907) 1.10 mmol/L 1.12-1.27 PH, BLOOD (BEAKER) (test likj=6415) 7.35 B-TYPE NATRIURETIC FACTOR (BNP)2018-05-13 04:48:00 Test Item Value Reference Range Comments B-TYPE NATRIURETIC PEPTIDE (BEAKER) (test 274 pg/mL 0-100 wqgr=891) [id number] 04:44:00 Test Item Value Reference Range Comments PHOSPHORUS (BEAKER) (test ljqj=900) 3.0 mg/dL 2.3-4.7 [id number] 04:44:00 Test Item Value Reference Range Comments MAGNESIUM (BEAKER) (test gxmz=659) 2.0 mg/dL 1.6-2.6 COMPREHENSIVE METABOLIC [id number] 04:44:00 Test Item Value Reference Range Comments TOTAL PROTEIN (BEAKER) 6.2 gm/dL 6.0-8.3 (test wfnv=082) ALBUMIN (BEAKER) (test 4.3 g/dL 3.5-5.0 oysk=5146) ALKALINE PHOSPHATASE 134 U/L 40-150 (BEAKER) (test dqxa=286) BILIRUBIN TOTAL (BEAKER) 4.4 mg/dL 0.2-1.2 (test xfzd=134) SODIUM (BEAKER) (test 131 meq/L 136-145 zphs=637) POTASSIUM (BEAKER) (test 3.7 meq/L 3.5-5.1 dnxn=619) CHLORIDE (BEAKER) (test 96 meq/L 98-107 plcw=753) CO2 (BEAKER) (test 26 meq/L 22-29 esyi=197) BLOOD UREA NITROGEN 20 mg/dL 7-21 (BEAKER) (test lfzn=172) CREATININE (BEAKER) (test 1.60 mg/dL 0.57-1.25 rosq=817) GLUCOSE RANDOM (BEAKER) 149 mg/dL 70-105 (test myne=582) CALCIUM (BEAKER) (test 10.0 mg/dL 8.4-10.2 wsdf=136) AST (SGOT) (BEAKER) (test 18 U/L 5-34 xtjy=902) ALT (SGPT) (BEAKER) (test 7 U/L 6-55 innp=554) EGFR (BEAKER) (test 46 mL/min/1.73 sq m ESTIMATED GFR IS NOT kovb=7248) ACCURATE CREATININE CLEARANCE IN PREDICTING GLOMERULAR FILTRATION RATE. ESTIMATED GFR IS NOT APPLICABLE FOR DIALYSIS PATIENTS. Specimen slightly ictericHEPATIC FUNCTION [id number] 04:44:00 Test Item Value Reference Range Comments TOTAL PROTEIN (BEAKER) (test mwnl=483) 6.2 gm/dL 6.0-8.3 ALBUMIN (BEAKER) (test glyb=1364) 4.3 g/dL 3.5-5.0 BILIRUBIN TOTAL (BEAKER) (test imjl=621) 4.4 mg/dL 0.2-1.2 BILIRUBIN DIRECT (BEAKER) (test jxme=891) 2.4 mg/dL 0.1-0.5 ALKALINE PHOSPHATASE (BEAKER) (test laig=237) 134 U/L 40-150 AST (SGOT) (BEAKER) (test bvif=957) 18 U/L 5-34 ALT (SGPT) (BEAKER) (test bxxq=518) 7 U/L 6-55 Specimen slightly ictericPROTHROMBIN [id number] 04:30:00 Test Item Value Reference Range Comments PROTIME (BEAKER) (test jpce=171) 23.8 seconds 11.7-14.7 INR (BEAKER) (test bgah=637) 2.1 <=5.9 RECOMMENDED COUMADIN/WARFARIN INR THERAPY RANGESSTANDARD DOSE: 2.0 - 3.0 Includes: PROPHYLAXIS forvenous thrombosis, systemic embolization; TREATMENT for venous thrombosis and/or pulmonary embolus.HIGH RISK: Target INR is 2.5-3.5 for patients with mechanical heart valves.CBC W/PLT COUNT & AUTO [id number] 04:19:00 Test Item Value Reference Range Comments WHITE BLOOD CELL COUNT (BEAKER) (test auae=762) 4.0 K/ L 3.5-10.5 RED BLOOD CELL COUNT (BEAKER) (test dcyr=448) 2.60 M/ L 4.63-6.08 HEMOGLOBIN (BEAKER) (test dlyo=414) 8.2 GM/DL 13.7-17.5 HEMATOCRIT (BEAKER) (test cmkd=007) 24.6 % 40.1-51.0 MEAN CORPUSCULAR VOLUME (BEAKER) (test wnpk=845) 94.6 fL 79.0-92.2 MEAN CORPUSCULAR HEMOGLOBIN (BEAKER) (test 31.5 pg 25.7-32.2 tual=046) MEAN CORPUSCULAR HEMOGLOBIN CONC (BEAKER) (test 33.3 GM/DL 32.3-36.5 hhid=381) RED CELL DISTRIBUTION WIDTH (BEAKER) (test 18.1 % 11.6-14.4 kxbp=713) PLATELET COUNT (BEAKER) (test qije=959) 46 K/CU MM 150-450 MEAN PLATELET VOLUME (BEAKER) (test cerc=800) 9.1 fL 9.4-12.4 NUCLEATED RED BLOOD CELLS (BEAKER) (test 0 /100 WBC 0-0 igcz=761) NEUTROPHILS RELATIVE PERCENT (BEAKER) (test 62 % suwy=892) LYMPHOCYTES RELATIVE PERCENT (BEAKER) (test 13 % nfec=759) MONOCYTES RELATIVE PERCENT (BEAKER) (test 21 % lngv=470) EOSINOPHILS RELATIVE PERCENT (BEAKER) (test 3 % ybpm=515) BASOPHILS RELATIVE PERCENT (BEAKER) (test 0 % ydag=442) NEUTROPHILS ABSOLUTE COUNT (BEAKER) (test 2.49 K/ L 1.78-5.38 bkki=639) LYMPHOCYTES ABSOLUTE COUNT (BEAKER) (test 0.53 K/ L 1.32-3.57 gkhd=043) MONOCYTES ABSOLUTE COUNT (BEAKER) (test dpnz=357) 0.86 K/ L 0.30-0.82 EOSINOPHILS ABSOLUTE COUNT (BEAKER) (test 0.10 K/ L 0.04-0.54 dogz=316) BASOPHILS ABSOLUTE COUNT (BEAKER) (test bwqu=591) 0.01 K/ L 0.01-0.08 IMMATURE GRANULOCYTES-RELATIVE PERCENT (BEAKER) 1 % 0-1 (test fymp=1963) TISSUE [id number] 14:55:00Surgical Pathology Report Case: [id number] Authorizing Provider: Karina Rain MD Collected: 05/08/20181999 Ordering Location: [address] Received: 05/11/2018 0837 Service Pathologist: Jesús Craig MD Specimen: Bone L3 VERTEBRAL BODYBONE BIOPSY:BONE AND BONE MARROW, NEGATIVE FOR MALIGNANCY.SEE DIAGNOSTIC COMMENT. Signing Pathologist Direct Phone Line: [phone] signed by Jesús Craig MD on 05/12/2018 [...] as thesampled material may not be fully retail sales representative. This case was discussed with Dr. Andrea Mason, digital production artist.[id number], [id number], [id number], [id number] fracture of body thoracic vertebralL3 vertebral body [...] developed and its performance characteristics determined by [facility], Pathology Laboratory. It has not [...] clinical laboratory testing.RAD, CHEST, 1 VIEW, NON [id number] 13:56:00Reason for exam:->edemaShould this be performed at the bedside?->YesFINAL REPORT Chest one view compared to December 30 Discussion: Ill-defined bilateral airspace opacities are worse since the previous study although this may reflect a lesser inspiratory effort. No gross effusion or pneumothorax. Signed: Karina Pugh Verified Date/Time : 05/12/2018 13:56:44 Reading Location: [address] Consult Reading Room CALCIUM, [id number] 06:58:00 Test Item Value Reference Range Comments CALCIUM IONIZED (BEAKER) (test zmld=884) 1.11 mmol/L 1.12-1.27 PH, BLOOD (BEAKER) (test nhno=1533) 7.36 [id number] 06:31:00 Test Item Value Reference Range Comments PHOSPHORUS (BEAKER) (test jgnt=370) 2.9 mg/dL 2.3-4.7 [id number] 06:31:00 Test Item Value Reference Range Comments MAGNESIUM (BEAKER) (test spms=604) 1.9 mg/dL 1.6-2.6 COMPREHENSIVE METABOLIC [id number] 06:31:00 Test Item Value Reference Range Comments TOTAL PROTEIN (BEAKER) 5.8 gm/dL 6.0-8.3 (test pvrz=049) ALBUMIN (BEAKER) (test 4.0 g/dL 3.5-5.0 ztdc=0279) ALKALINE PHOSPHATASE 124 U/L 40-150 (BEAKER) (test lwac=456) BILIRUBIN TOTAL (BEAKER) 4.3 mg/dL 0.2-1.2 (test pbct=032) SODIUM (BEAKER) (test 128 meq/L 136-145 tbvn=360) POTASSIUM (BEAKER) (test 3.9 meq/L 3.5-5.1 wtve=712) CHLORIDE (BEAKER) (test 92 meq/L 98-107 xexq=882) CO2 (BEAKER) (test 26 meq/L 22-29 jtdu=969) BLOOD UREA NITROGEN 21 mg/dL 7-21 (BEAKER) (test vyhf=496) CREATININE (BEAKER) (test 1.54 mg/dL 0.57-1.25 xzhs=516) GLUCOSE RANDOM (BEAKER) 113 mg/dL 70-105 (test apsv=250) CALCIUM (BEAKER) (test 9.5 mg/dL 8.4-10.2 xgjw=685) AST (SGOT) (BEAKER) (test 16 U/L 5-34 hpxo=140) ALT (SGPT) (BEAKER) (test 6 U/L 6-55 ekbn=751) EGFR (BEAKER) (test 48 mL/min/1.73 sq m ESTIMATED GFR IS NOT ceux=7823) ACCURATE CREATININE CLEARANCE IN PREDICTING GLOMERULAR FILTRATION RATE. ESTIMATED GFR IS NOT APPLICABLE FOR DIALYSIS PATIENTS. Specimen slightly ictericHEPATIC FUNCTION [id number] 06:31:00 Test Item Value Reference Range Comments TOTAL PROTEIN (BEAKER) (test zrrn=450) 5.8 gm/dL 6.0-8.3 ALBUMIN (BEAKER) (test behk=3163) 4.0 g/dL 3.5-5.0 BILIRUBIN TOTAL (BEAKER) (test wyuj=598) 4.3 mg/dL 0.2-1.2 BILIRUBIN DIRECT (BEAKER) (test cvkh=211) 2.3 mg/dL 0.1-0.5 ALKALINE PHOSPHATASE (BEAKER) (test grfe=706) 124 U/L 40-150 AST (SGOT) (BEAKER) (test hhla=633) 16 U/L 5-34 ALT (SGPT) (BEAKER) (test dkru=390) 6 U/L 6-55 Specimen slightly ictericPROTHROMBIN [id number] 06:16:00 Test Item Value Reference Range Comments PROTIME (BEAKER) (test hdzo=806) 22.3 seconds 11.7-14.7 INR (BEAKER) (test tcbx=915) 2.0 <=5.9 RECOMMENDED COUMADIN/WARFARIN INR THERAPY RANGESSTANDARD DOSE: 2.0 - 3.0 Includes: PROPHYLAXIS forvenous thrombosis, systemic embolization; TREATMENT for venous thrombosis and/or pulmonary embolus.HIGH RISK: Target INR is 2.5-3.5 for patients with mechanical heart valves.CBC W/PLT COUNT & AUTO [id number] 06:00:00 Test Item Value Reference Range Comments WHITE BLOOD CELL COUNT (BEAKER) (test swsj=253) 4.3 K/ L 3.5-10.5 RED BLOOD CELL COUNT (BEAKER) (test ubbx=169) 2.68 M/ L 4.63-6.08 HEMOGLOBIN (BEAKER) (test ylge=378) 8.3 GM/DL 13.7-17.5 HEMATOCRIT (BEAKER) (test qyam=586) 25.0 % 40.1-51.0 MEAN CORPUSCULAR VOLUME (BEAKER) (test dlwf=895) 93.3 fL 79.0-92.2 MEAN CORPUSCULAR HEMOGLOBIN (BEAKER) (test 31.0 pg 25.7-32.2 pzvn=142) MEAN CORPUSCULAR HEMOGLOBIN CONC (BEAKER) (test 33.2 GM/DL 32.3-36.5 eksp=102) RED CELL DISTRIBUTION WIDTH (BEAKER) (test 17.4 % 11.6-14.4 jmlu=265) PLATELET COUNT (BEAKER) (test wcgg=211) 57 K/CU MM 150-450 MEAN PLATELET VOLUME (BEAKER) (test aaqs=353) 9.3 fL 9.4-12.4 NUCLEATED RED BLOOD CELLS (BEAKER) (test 0 /100 WBC 0-0 gpuc=554) NEUTROPHILS RELATIVE PERCENT (BEAKER) (test 61 % yjox=264) LYMPHOCYTES RELATIVE PERCENT (BEAKER) (test 14 % fgbm=185) MONOCYTES RELATIVE PERCENT (BEAKER) (test 17 % qqmb=237) EOSINOPHILS RELATIVE PERCENT (BEAKER) (test 7 % zzrx=376) BASOPHILS RELATIVE PERCENT (BEAKER) (test 1 % xqjn=780) NEUTROPHILS ABSOLUTE COUNT (BEAKER) (test 2.62 K/ L 1.78-5.38 wket=677) LYMPHOCYTES ABSOLUTE COUNT (BEAKER) (test 0.59 K/ L 1.32-3.57 iqjn=547) MONOCYTES ABSOLUTE COUNT (BEAKER) (test ksxl=176) 0.73 K/ L 0.30-0.82 EOSINOPHILS ABSOLUTE COUNT (BEAKER) (test 0.29 K/ L 0.04-0.54 etsm=764) BASOPHILS ABSOLUTE COUNT (BEAKER) (test ipkb=564) 0.02 K/ L 0.01-0.08 IMMATURE GRANULOCYTES-RELATIVE PERCENT (BEAKER) 1 % 0-1 (test fdno=6949) BLOOD [id number] 00:00:00 Test Item Value Reference Range Comments CULTURE (BEAKER) (test whde=4358) No growth in 5 days BLOOD [id number] 00:00:00 Test Item Value Reference Range Comments CULTURE (BEAKER) (test gbbg=3357) No growth in 5 days OSMOLALITY, [id number] 18:16:00 Test Item Value Reference Range Comments OSMOLALITY URINE (BEAKER) (test jzfr=957) 312 mOsm/kg 40-1400 BODY FLUID CELL COUNT WITH [id number] 17:17:00 Test Item Value Reference Range Comments APPEARANCE FLUID (BEAKER) (test eslg=657) Clear Clear COLOR FLUID (BEAKER) (test gork=285) Yellow Colorless, Straw RBC FLUID (BEAKER) (test obgv=628) 150 /cu mm <=1 ADJUSTED WBC FLUID (BEAKER) (test mhfh=7142) 72 /cu mm <=5 LINING CELLS (BEAKER) (test crbz=4149) 2 /cu mm <=1 NEUTROPHILS FLUID (BEAKER) (test pjrv=2900) 3 % LYMPHS FLUID (BEAKER) (test cpha=671) 28 % MONO/MACROPHAGE FLUID (BEAKER) (test ybfb=344) 68 % EOSINOPHILS FLUID (BEAKER) (test rxtd=647) 1 % BASO FLUID (BEAKER) (test crts=811) 0 % CONTAINER BODY FLUID (BEAKER) (test tdbn=2232) EDTA Tube SODIUM, RANDOM [id number] 17:09:00 Test Item Value Reference Range Comments SODIUM URINE (BEAKER) (test reer=375) < meq/L Reference Range: No NormalsURINALYSIS W/ [id number] 17:08:00 Test Item Value Reference Range Comments COLOR (BEAKER) (test zvol=881) Yellow CLARITY (BEAKER) (test vtao=006) Clear SPECIFIC GRAVITY UA (BEAKER) (test qhyq=870) 1.012 1.001-1.035 PH UA (BEAKER) (test cfnw=228) 5.5 5.0-8.0 PROTEIN UA (BEAKER) (test sufw=881) Negative Negative GLUCOSE UA (BEAKER) (test drof=091) Negative Negative KETONES UA (BEAKER) (test yddb=053) Negative Negative BILIRUBIN UA (BEAKER) (test xaev=629) Negative Negative BLOOD UA (BEAKER) (test wora=357) Negative Negative NITRITE UA (BEAKER) (test qkkp=246) Negative Negative LEUKOCYTE ESTERASE UA (BEAKER) (test nugb=229) Negative Negative UROBILINOGEN UA (BEAKER) (test iaeu=562) 2.0 mg/dL 0.2-1.0 RBC UA (BEAKER) (test ktyb=350) 0 /HPF WBC UA (BEAKER) (test esks=536) 1 /HPF MUCUS (BEAKER) (test hvvw=3590) Rare HYALINE CASTS (BEAKER) (test awap=888) 15 /LPF SOURCE(BEAKER) (test bakk=9604) CREATININE, RANDOM [id number] 17:05:00 Test Item Value Reference Range Comments CREATININE URINE (BEAKER) (test ffnl=111) 116.1 mg/dL Reference Range: No NormalsPROTEIN, RANDOM [id number] 17:05:00 Test Item Value Reference Range Comments PROTEIN, URINE (BEAKER) (test yctw=0795) 7 mg/dL 0-14 RAD, SPINE, THORACIC, 2 [id number] 13:53:00Reason for exam:->back pain, s/p kyphoplastyFINAL REPORT [...] Jono Xiong Verified Date/Time: 13:53:06 Reading Location: [facility] Mammo Reading Room RAD, SPINE, LUMBAR, 2 OR 3 [id number] 13:53:00Reason for exam:->back pain, s/p kyphoplastyFINAL REPORT [...] disc space is relatively maintained. Signed: Jono XiongMarina [employer] Verified Date/Time: 13:53:06 Reading Location: [facility] Mammo Reading Room U/S, [id number] 12:52:00Limit to 4L due to AKIReason for exam:-> ascitesShould this be performed at the bedside?->NoFINAL REPORT Ultrasound guided paracentesis, 05/11/2018. Clinical History: Ascites. Sedation: None. Inventory Checker: Elle. Public Service Representative: None. Estimated Blood Loss: < 1 cc. [...] was achieved with 1% lidocaine, a 5 Algerian one-step catheter was advanced into the peritoneal cavity under ultrasound guidance. After completion of drainage, the catheter was removed. There was no evidence of complication. Patient Disposition: The patient was discharged from the ultrasound department after the paracentesis, in good condition. Impression: Successful ultrasound guided paracentesis. Signed: Vinny Almeida Verified Date/Time: 05/11/2018 12:52:57 Reading Location: [facility] B1 [id number] Ultrasound Reading Room MISCELLANEOUS LAB [id number] 10:45:00 Test Item Value Reference Range Comments SCAN RESULT (test qzmo=[id number]) [id number] 07:31:00 Test Item Value Reference Range Comments PHOSPHORUS (BEAKER) (test shnu=050) 2.7 mg/dL 2.3-4.7 [id number] 07:31:00 Test Item Value Reference Range Comments MAGNESIUM (BEAKER) (test qjim=839) 1.8 mg/dL 1.6-2.6 COMPREHENSIVE METABOLIC [id number] 07:31:00 Test Item Value Reference Range Comments TOTAL PROTEIN (BEAKER) 5.5 gm/dL 6.0-8.3 (test ritx=202) ALBUMIN (BEAKER) (test 3.5 g/dL 3.5-5.0 qckf=4537) ALKALINE PHOSPHATASE 118 U/L 40-150 (BEAKER) (test vkvp=696) BILIRUBIN TOTAL (BEAKER) 5.1 mg/dL 0.2-1.2 (test cuzj=441) SODIUM (BEAKER) (test 123 meq/L 136-145 qwku=234) POTASSIUM (BEAKER) (test 4.1 meq/L 3.5-5.1 zzoq=018) CHLORIDE (BEAKER) (test 91 meq/L 98-107 tpqp=559) CO2 (BEAKER) (test 25 meq/L 22-29 rkzs=231) BLOOD UREA NITROGEN 21 mg/dL 7-21 (BEAKER) (test qvhy=419) CREATININE (BEAKER) (test 1.59 mg/dL 0.57-1.25 bkjs=067) GLUCOSE RANDOM (BEAKER) 121 mg/dL 70-105 (test uqcw=409) CALCIUM (BEAKER) (test 9.4 mg/dL 8.4-10.2 ngvv=914) AST (SGOT) (BEAKER) (test 17 U/L 5-34 bups=111) ALT (SGPT) (BEAKER) (test 8 U/L 6-55 szvy=443) EGFR (BEAKER) (test 46 mL/min/1.73 sq m ESTIMATED GFR IS NOT ynxu=9189) ACCURATE CREATININE CLEARANCE IN PREDICTING GLOMERULAR FILTRATION RATE. ESTIMATED GFR IS NOT APPLICABLE FOR DIALYSIS PATIENTS. Specimen moderately ictericHEPATIC FUNCTION [id number] 07:31:00 Test Item Value Reference Range Comments TOTAL PROTEIN (BEAKER) (test qydg=437) 5.5 gm/dL 6.0-8.3 ALBUMIN (BEAKER) (test xduy=3445) 3.5 g/dL 3.5-5.0 BILIRUBIN TOTAL (BEAKER) (test uofp=360) 5.1 mg/dL 0.2-1.2 BILIRUBIN DIRECT (BEAKER) (test tnuh=459) 2.3 mg/dL 0.1-0.5 ALKALINE PHOSPHATASE (BEAKER) (test paee=586) 118 U/L 40-150 AST (SGOT) (BEAKER) (test bbfx=546) 17 U/L 5-34 ALT (SGPT) (BEAKER) (test vtqv=675) 8 U/L 6-55 Specimen moderately ictericPROTHROMBIN [id number] 07:17:00 Test Item Value Reference Range Comments PROTIME (BEAKER) (test drfm=916) 23.8 seconds 11.7-14.7 INR (BEAKER) (test fwgx=245) 2.1 <=5.9 RECOMMENDED COUMADIN/WARFARIN INR THERAPY RANGESSTANDARD DOSE: 2.0 - 3.0 Includes: PROPHYLAXIS forvenous thrombosis, systemic embolization; TREATMENT for venous thrombosis and/or pulmonary embolus.HIGH RISK: Target INR is 2.5-3.5 for patients with mechanical heart valves.CBC W/PLT COUNT & AUTO [id number] 07:15:00 Test Item Value Reference Range Comments WHITE BLOOD CELL COUNT (BEAKER) (test otqq=796) 4.4 K/ L 3.5-10.5 RED BLOOD CELL COUNT (BEAKER) (test djzc=538) 2.52 M/ L 4.63-6.08 HEMOGLOBIN (BEAKER) (test brtu=493) 7.9 GM/DL 13.7-17.5 HEMATOCRIT (BEAKER) (test seuf=320) 23.7 % 40.1-51.0 MEAN CORPUSCULAR VOLUME (BEAKER) (test zaam=529) 94.0 fL 79.0-92.2 MEAN CORPUSCULAR HEMOGLOBIN (BEAKER) (test 31.3 pg 25.7-32.2 ieno=933) MEAN CORPUSCULAR HEMOGLOBIN CONC (BEAKER) (test 33.3 GM/DL 32.3-36.5 uuvd=889) RED CELL DISTRIBUTION WIDTH (BEAKER) (test 17.6 % 11.6-14.4 kchf=202) PLATELET COUNT (BEAKER) (test tbxt=190) 52 K/CU MM 150-450 MEAN PLATELET VOLUME (BEAKER) (test oegu=759) 9.2 fL 9.4-12.4 NUCLEATED RED BLOOD CELLS (BEAKER) (test 0 /100 WBC 0-0 xlit=330) NEUTROPHILS RELATIVE PERCENT (BEAKER) (test 62 % iaut=000) LYMPHOCYTES RELATIVE PERCENT (BEAKER) (test 10 % fueu=863) MONOCYTES RELATIVE PERCENT (BEAKER) (test 19 % uifo=509) EOSINOPHILS RELATIVE PERCENT (BEAKER) (test 8 % mvhi=281) BASOPHILS RELATIVE PERCENT (BEAKER) (test 0 % ifgj=290) NEUTROPHILS ABSOLUTE COUNT (BEAKER) (test 2.72 K/ L 1.78-5.38 vpox=897) LYMPHOCYTES ABSOLUTE COUNT (BEAKER) (test 0.42 K/ L 1.32-3.57 cpfb=188) MONOCYTES ABSOLUTE COUNT (BEAKER) (test sfwj=021) 0.84 K/ L 0.30-0.82 EOSINOPHILS ABSOLUTE COUNT (BEAKER) (test 0.34 K/ L 0.04-0.54 rodf=874) BASOPHILS ABSOLUTE COUNT (BEAKER) (test edph=484) 0.00 K/ L 0.01-0.08 IMMATURE GRANULOCYTES-RELATIVE PERCENT (BEAKER) 1 % 0-1 (test covc=8171) CALCIUM, [id number] 07:09:00 Test Item Value Reference Range Comments CALCIUM IONIZED (BEAKER) (test uebe=585) 1.09 mmol/L 1.12-1.27 PH, BLOOD (BEAKER) (test ntlq=1550) 7.36 BASIC METABOLIC [id number] 17:49:00 Test Item Value Reference Range Comments SODIUM (BEAKER) (test 124 meq/L 136-145 ndbx=002) POTASSIUM (BEAKER) (test 3.8 meq/L 3.5-5.1 wgvi=779) CHLORIDE (BEAKER) (test 91 meq/L 98-107 nkfy=994) CO2 (BEAKER) (test 22 meq/L 22-29 vitf=752) BLOOD UREA NITROGEN 19 mg/dL 7-21 (BEAKER) (test febw=319) CREATININE (BEAKER) (test 1.49 mg/dL 0.57-1.25 wbyk=478) GLUCOSE RANDOM (BEAKER) 105 mg/dL 70-105 (test bkqc=774) CALCIUM (BEAKER) (test 9.3 mg/dL 8.4-10.2 eovd=445) EGFR (BEAKER) (test 50 mL/min/1.73 sq m ESTIMATED GFR IS NOT gbha=3390) ACCURATE CREATININE CLEARANCE IN PREDICTING GLOMERULAR FILTRATION RATE. ESTIMATED GFR IS NOT APPLICABLE FOR DIALYSIS PATIENTS. Call [id number] slightly ictericCALCIUM, [id number] 06:59:00 Test Item Value Reference Range Comments CALCIUM IONIZED (BEAKER) (test gkrh=659) 1.00 mmol/L 1.12-1.27 PH, BLOOD (BEAKER) (test vsri=1497) 7.47 [id number] 05:42:00 Test Item Value Reference Range Comments PHOSPHORUS (BEAKER) (test drti=322) 2.7 mg/dL 2.3-4.7 [id number] 05:42:00 Test Item Value Reference Range Comments MAGNESIUM (BEAKER) (test zeqc=866) 1.7 mg/dL 1.6-2.6 HEPATIC FUNCTION [id number] 05:42:00 Test Item Value Reference Range Comments TOTAL PROTEIN (BEAKER) (test hqmx=120) 5.2 gm/dL 6.0-8.3 ALBUMIN (BEAKER) (test rzyl=0139) 3.5 g/dL 3.5-5.0 BILIRUBIN TOTAL (BEAKER) (test oick=666) 3.4 mg/dL 0.2-1.2 BILIRUBIN DIRECT (BEAKER) (test puhe=061) 1.8 mg/dL 0.1-0.5 ALKALINE PHOSPHATASE (BEAKER) (test katk=895) 106 U/L 40-150 AST (SGOT) (BEAKER) (test djpu=340) 15 U/L 5-34 ALT (SGPT) (BEAKER) (test iwhw=672) 7 U/L 6-55 Specimen slightly ictericPROTHROMBIN [id number] 05:22:00 Test Item Value Reference Range Comments PROTIME (BEAKER) (test flxi=373) 22.6 seconds 11.7-14.7 INR (BEAKER) (test taqs=975) 2.0 <=5.9 RECOMMENDED COUMADIN/WARFARIN INR THERAPY RANGESSTANDARD DOSE: 2.0 - 3.0 Includes: PROPHYLAXIS forvenous thrombosis, systemic embolization; TREATMENT for venous thrombosis and/or pulmonary embolus.HIGH RISK: Target INR is 2.5-3.5 for patients with mechanical heart valves.CBC W/PLT COUNT & AUTO [id number] 05:10:00 Test Item Value Reference Range Comments WHITE BLOOD CELL COUNT (BEAKER) (test kuta=501) 5.6 K/ L 3.5-10.5 RED BLOOD CELL COUNT (BEAKER) (test bgeq=529) 2.09 M/ L 4.63-6.08 HEMOGLOBIN (BEAKER) (test matb=028) 6.5 GM/DL 13.7-17.5 HEMATOCRIT (BEAKER) (test qaft=232) 19.8 % 40.1-51.0 MEAN CORPUSCULAR VOLUME (BEAKER) (test gfbc=038) 94.7 fL 79.0-92.2 MEAN CORPUSCULAR HEMOGLOBIN (BEAKER) (test 31.1 pg 25.7-32.2 xnvg=407) MEAN CORPUSCULAR HEMOGLOBIN CONC (BEAKER) (test 32.8 GM/DL 32.3-36.5 tfyh=924) RED CELL DISTRIBUTION WIDTH (BEAKER) (test 17.3 % 11.6-14.4 veqh=248) PLATELET COUNT (BEAKER) (test fltn=898) 57 K/CU MM 150-450 MEAN PLATELET VOLUME (BEAKER) (test elty=066) 8.9 fL 9.4-12.4 NUCLEATED RED BLOOD CELLS (BEAKER) (test 0 /100 WBC 0-0 edfr=392) NEUTROPHILS RELATIVE PERCENT (BEAKER) (test 71 % mlea=867) LYMPHOCYTES RELATIVE PERCENT (BEAKER) (test 9 % lxfs=719) MONOCYTES RELATIVE PERCENT (BEAKER) (test 16 % kpxl=557) EOSINOPHILS RELATIVE PERCENT (BEAKER) (test 3 % kvjo=114) BASOPHILS RELATIVE PERCENT (BEAKER) (test 0 % rqqr=801) NEUTROPHILS ABSOLUTE COUNT (BEAKER) (test 3.93 K/ L 1.78-5.38 ejso=015) LYMPHOCYTES ABSOLUTE COUNT (BEAKER) (test 0.52 K/ L 1.32-3.57 qsxg=415) MONOCYTES ABSOLUTE COUNT (BEAKER) (test pbfu=486) 0.87 K/ L 0.30-0.82 EOSINOPHILS ABSOLUTE COUNT (BEAKER) (test 0.19 K/ L 0.04-0.54 manf=372) BASOPHILS ABSOLUTE COUNT (BEAKER) (test cjtw=383) 0.01 K/ L 0.01-0.08 IMMATURE GRANULOCYTES-RELATIVE PERCENT (BEAKER) 1 % 0-1 (test ftbk=2544) HEPATIC FUNCTION [id number] 11:05:00 Test Item Value Reference Range Comments TOTAL PROTEIN (BEAKER) (test rzyb=927) 5.7 gm/dL 6.0-8.3 ALBUMIN (BEAKER) (test zaxm=1705) 3.9 g/dL 3.5-5.0 BILIRUBIN TOTAL (BEAKER) (test dgfn=566) 4.9 mg/dL 0.2-1.2 BILIRUBIN DIRECT (BEAKER) (test aegg=785) 2.0 mg/dL 0.1-0.5 ALKALINE PHOSPHATASE (BEAKER) (test dvwi=188) 98 U/L 40-150 AST (SGOT) (BEAKER) (test auld=840) 19 U/L 5-34 ALT (SGPT) (BEAKER) (test zlzx=547) 8 U/L 6-55 Specimen moderately ictericBASIC METABOLIC [id number] 10:06:00 Test Item Value Reference Range Comments SODIUM (BEAKER) (test 132 meq/L 136-145 obpr=709) POTASSIUM (BEAKER) (test 5.0 meq/L 3.5-5.1 usqj=572) CHLORIDE (BEAKER) (test 97 meq/L 98-107 dbnc=569) CO2 (BEAKER) (test 25 meq/L 22-29 fobs=473) BLOOD UREA NITROGEN 17 mg/dL 7-21 (BEAKER) (test bqby=389) CREATININE (BEAKER) (test 1.33 mg/dL 0.57-1.25 qjeb=553) GLUCOSE RANDOM (BEAKER) 181 mg/dL 70-105 (test ymue=370) CALCIUM (BEAKER) (test 9.4 mg/dL 8.4-10.2 gbbp=579) EGFR (BEAKER) (test 56 mL/min/1.73 sq m ESTIMATED GFR IS NOT zoxa=6074) ACCURATE CREATININE CLEARANCE IN PREDICTING GLOMERULAR FILTRATION RATE. ESTIMATED GFR IS NOT APPLICABLE FOR DIALYSIS PATIENTS. Specimen moderately ictericCBC W/PLT COUNT & AUTO [id number] 07: 45:00 Test Item Value Reference Range Comments WHITE BLOOD CELL COUNT (BEAKER) (test pxfc=873) 3.4 K/ L 3.5-10.5 RED BLOOD CELL COUNT (BEAKER) (test oqdj=971) 2.26 M/ L 4.63-6.08 HEMOGLOBIN (BEAKER) (test phml=314) 7.0 GM/DL 13.7-17.5 HEMATOCRIT (BEAKER) (test mzoj=941) 21.6 % 40.1-51.0 MEAN CORPUSCULAR VOLUME (BEAKER) (test aiqt=206) 95.6 fL 79.0-92.2 MEAN CORPUSCULAR HEMOGLOBIN (BEAKER) (test 31.0 pg 25.7-32.2 tgil=767) MEAN CORPUSCULAR HEMOGLOBIN CONC (BEAKER) (test 32.4 GM/DL 32.3-36.5 phgt=466) RED CELL DISTRIBUTION WIDTH (BEAKER) (test 17.3 % 11.6-14.4 sccc=577) PLATELET COUNT (BEAKER) (test qrll=905) 66 K/CU MM 150-450 MEAN PLATELET VOLUME (BEAKER) (test vugd=802) 9.8 fL 9.4-12.4 NUCLEATED RED BLOOD CELLS (BEAKER) (test 0 /100 WBC 0-0 mrcw=080) NEUTROPHILS RELATIVE PERCENT (BEAKER) (test 87 % iacr=175) LYMPHOCYTES RELATIVE PERCENT (BEAKER) (test 7 % zram=433) MONOCYTES RELATIVE PERCENT (BEAKER) (test 5 % jyet=837) EOSINOPHILS RELATIVE PERCENT (BEAKER) (test 0 % etaa=313) BASOPHILS RELATIVE PERCENT (BEAKER) (test 0 % eyej=541) NEUTROPHILS ABSOLUTE COUNT (BEAKER) (test 2.94 K/ L 1.78-5.38 aman=370) LYMPHOCYTES ABSOLUTE COUNT (BEAKER) (test 0.23 K/ L 1.32-3.57 mmaa=167) MONOCYTES ABSOLUTE COUNT (BEAKER) (test mjpl=362) 0.17 K/ L 0.30-0.82 EOSINOPHILS ABSOLUTE COUNT (BEAKER) (test 0.00 K/ L 0.04-0.54 hvhg=290) BASOPHILS ABSOLUTE COUNT (BEAKER) (test epes=932) 0.00 K/ L 0.01-0.08 IMMATURE GRANULOCYTES-RELATIVE PERCENT (BEAKER) 1 % 0-1 (test qvqe=8026) PROTHROMBIN [id number] 06:06:00 Test Item Value Reference Range Comments PROTIME (BEAKER) (test ghrv=879) 19.1 seconds 11.7-14.7 INR (BEAKER) (test gqyl=057) 1.6 <=5.9 RECOMMENDED COUMADIN/WARFARIN INR THERAPY RANGESSTANDARD DOSE: 2.0 - 3.0 Includes: PROPHYLAXIS forvenous thrombosis, systemic embolization; TREATMENT for venous thrombosis and/or pulmonary embolus.HIGH RISK: Target INR is 2.5-3.5 for patients with mechanical heart valves.[id number] 15:35:00 Test Item Value Reference Range Comments PROTIME (BEAKER) (test uucv=661) 20.3 seconds 11.7-14.7 INR (BEAKER) (test kznr=357) 1.7 <=5.9 PARTIAL THROMBOPLASTIN TIME (BEAKER) (test 46.2 seconds 22.5-36.0 doro=747) RECOMMENDED COUMADIN/WARFARIN INR THERAPY RANGESSTANDARD DOSE: 2.0 - 3.0 Includes: PROPHYLAXIS forvenous thrombosis, systemic embolization; TREATMENT for venous thrombosis and/or pulmonary embolus.HIGH RISK: Target INR is 2.5-3.5 for patients with mechanical heart valves.30 minutes after administration of Poysedl24 minutes after administration of KcentraPROTHROMBIN [id number] 15:33:00 Test Item Value Reference Range Comments PROTIME (BEAKER) (test xlhy=024) 20.1 seconds 11.7-14.7 INR (BEAKER) (test afdo=591) 1.7 <=5.9 RECOMMENDED COUMADIN/WARFARIN INR THERAPY RANGESSTANDARD DOSE: 2.0 - 3.0 Includes: PROPHYLAXIS forvenous thrombosis, systemic embolization; TREATMENT for venous thrombosis and/or pulmonary embolus.HIGH RISK: Target INR is 2.5-3.5 for patients with mechanical heart valves.Please draw 30 mins after Kcentra doseBODY FLUID CULTURE + GRAM [id number] 11:29:00 Test Item Value Reference Range Comments CULTURE (BEAKER) (test xqhb=8152) No growth GRAM STAIN RESULT (BEAKER) (test <1+ WBCs tlqc=0927) GRAM STAIN RESULT (BEAKER) (test No organisms seen ruir=73145) CT, [id number] 10:30:00FINAL REPORT HISTORY : r/o intra abdominal [...] Landerosort Verified Date/Time: 05/08/2018 10:30:57 Reading Location: [facility] [place] Diagnostic Imaging Reading Room - [place] [id number] CBC W/PLT COUNT & AUTO [id number] 07:27:00 Test Item Value Reference Range Comments WHITE BLOOD CELL COUNT (BEAKER) (test oxvs=366) 3.1 K/ L 3.5-10.5 RED BLOOD CELL COUNT (BEAKER) (test bowu=673) 2.27 M/ L 4.63-6.08 HEMOGLOBIN (BEAKER) (test rzqb=923) 7.1 GM/DL 13.7-17.5 HEMATOCRIT (BEAKER) (test jmyq=073) 21.4 % 40.1-51.0 MEAN CORPUSCULAR VOLUME (BEAKER) (test kqdb=821) 94.3 fL 79.0-92.2 MEAN CORPUSCULAR HEMOGLOBIN (BEAKER) (test 31.3 pg 25.7-32.2 bvhq=598) MEAN CORPUSCULAR HEMOGLOBIN CONC (BEAKER) (test 33.2 GM/DL 32.3-36.5 fnvh=484) RED CELL DISTRIBUTION WIDTH (BEAKER) (test 17.5 % 11.6-14.4 aysd=922) PLATELET COUNT (BEAKER) (test elgh=300) 43 K/CU MM 150-450 MEAN PLATELET VOLUME (BEAKER) (test codi=817) 8.7 fL 9.4-12.4 NUCLEATED RED BLOOD CELLS (BEAKER) (test 0 /100 WBC 0-0 bgkf=493) NEUTROPHILS RELATIVE PERCENT (BEAKER) (test 60 % thsa=789) LYMPHOCYTES RELATIVE PERCENT (BEAKER) (test 16 % eyho=321) MONOCYTES RELATIVE PERCENT (BEAKER) (test 17 % bxew=486) EOSINOPHILS RELATIVE PERCENT (BEAKER) (test 7 % wuiw=312) BASOPHILS RELATIVE PERCENT (BEAKER) (test 0 % ofwm=357) NEUTROPHILS ABSOLUTE COUNT (BEAKER) (test 1.85 K/ L 1.78-5.38 crqu=856) LYMPHOCYTES ABSOLUTE COUNT (BEAKER) (test 0.48 K/ L 1.32-3.57 oppn=658) MONOCYTES ABSOLUTE COUNT (BEAKER) (test ojfq=412) 0.54 K/ L 0.30-0.82 EOSINOPHILS ABSOLUTE COUNT (BEAKER) (test 0.22 K/ L 0.04-0.54 lpwc=885) BASOPHILS ABSOLUTE COUNT (BEAKER) (test tfln=360) 0.00 K/ L 0.01-0.08 IMMATURE GRANULOCYTES-RELATIVE PERCENT (BEAKER) 0 % 0-1 (test twan=3013) CBC W/PLT COUNT & AUTO [id number] 07:26:00 Test Item Value Reference Range Comments WHITE BLOOD CELL COUNT (BEAKER) (test iasf=172) 2.9 K/ L 3.5-10.5 RED BLOOD CELL COUNT (BEAKER) (test gmpn=141) 2.25 M/ L 4.63-6.08 HEMOGLOBIN (BEAKER) (test icoz=709) 7.1 GM/DL 13.7-17.5 HEMATOCRIT (BEAKER) (test yiyb=004) 21.4 % 40.1-51.0 MEAN CORPUSCULAR VOLUME (BEAKER) (test knty=900) 95.1 fL 79.0-92.2 MEAN CORPUSCULAR HEMOGLOBIN (BEAKER) (test 31.6 pg 25.7-32.2 wejb=214) MEAN CORPUSCULAR HEMOGLOBIN CONC (BEAKER) (test 33.2 GM/DL 32.3-36.5 tmjx=455) RED CELL DISTRIBUTION WIDTH (BEAKER) (test 17.5 % 11.6-14.4 dfwd=080) PLATELET COUNT (BEAKER) (test rriu=335) 44 K/CU MM 150-450 MEAN PLATELET VOLUME (BEAKER) (test pkze=387) 9.3 fL 9.4-12.4 NUCLEATED RED BLOOD CELLS (BEAKER) (test 0 /100 WBC 0-0 rvjr=242) NEUTROPHILS RELATIVE PERCENT (BEAKER) (test 59 % zrwg=176) LYMPHOCYTES RELATIVE PERCENT (BEAKER) (test 16 % tmcd=181) MONOCYTES RELATIVE PERCENT (BEAKER) (test 17 % yeil=543) EOSINOPHILS RELATIVE PERCENT (BEAKER) (test 7 % olre=124) BASOPHILS RELATIVE PERCENT (BEAKER) (test 0 % okat=765) NEUTROPHILS ABSOLUTE COUNT (BEAKER) (test 1.72 K/ L 1.78-5.38 jepk=839) LYMPHOCYTES ABSOLUTE COUNT (BEAKER) (test 0.46 K/ L 1.32-3.57 kjgd=322) MONOCYTES ABSOLUTE COUNT (BEAKER) (test bhje=251) 0.51 K/ L 0.30-0.82 EOSINOPHILS ABSOLUTE COUNT (BEAKER) (test 0.21 K/ L 0.04-0.54 ecfv=252) BASOPHILS ABSOLUTE COUNT (BEAKER) (test qfhj=563) 0.01 K/ L 0.01-0.08 IMMATURE GRANULOCYTES-RELATIVE PERCENT (BEAKER) 1 % 0-1 (test fedc=4343) BASIC METABOLIC [id number] 07:00:00 Test Item Value Reference Range Comments SODIUM (BEAKER) (test 130 meq/L 136-145 oqub=031) POTASSIUM (BEAKER) (test 3.6 meq/L 3.5-5.1 vvyn=527) CHLORIDE (BEAKER) (test 94 meq/L 98-107 vvnt=925) CO2 (BEAKER) (test 27 meq/L 22-29 mfrl=414) BLOOD UREA NITROGEN 19 mg/dL 7-21 (BEAKER) (test anfg=185) CREATININE (BEAKER) (test 1.40 mg/dL 0.57-1.25 iixf=479) GLUCOSE RANDOM (BEAKER) 111 mg/dL 70-105 (test hkmi=175) CALCIUM (BEAKER) (test 9.2 mg/dL 8.4-10.2 lxkf=972) EGFR (BEAKER) (test 53 mL/min/1.73 sq m ESTIMATED GFR IS NOT utkt=8330) ACCURATE CREATININE CLEARANCE IN PREDICTING GLOMERULAR FILTRATION RATE. ESTIMATED GFR IS NOT APPLICABLE FOR DIALYSIS PATIENTS. Specimen moderately ictericCOMPREHENSIVE METABOLIC [id number] 07:00:00 Test Item Value Reference Range Comments TOTAL PROTEIN (BEAKER) 5.7 gm/dL 6.0-8.3 (test fewb=430) ALBUMIN (BEAKER) (test 4.0 g/dL 3.5-5.0 vpuz=6203) ALKALINE PHOSPHATASE 92 U/L 40-150 (BEAKER) (test oqbz=593) BILIRUBIN TOTAL (BEAKER) 4.6 mg/dL 0.2-1.2 (test vvzg=386) SODIUM (BEAKER) (test 130 meq/L 136-145 vwmo=748) POTASSIUM (BEAKER) (test 3.6 meq/L 3.5-5.1 jtgu=326) CHLORIDE (BEAKER) (test 94 meq/L 98-107 qtgd=893) CO2 (BEAKER) (test 27 meq/L 22-29 hsjw=783) BLOOD UREA NITROGEN 19 mg/dL 7-21 (BEAKER) (test qzin=741) CREATININE (BEAKER) (test 1.40 mg/dL 0.57-1.25 svwa=092) GLUCOSE RANDOM (BEAKER) 111 mg/dL 70-105 (test nfhu=849) CALCIUM (BEAKER) (test 9.2 mg/dL 8.4-10.2 xyde=781) AST (SGOT) (BEAKER) (test 16 U/L 5-34 bhag=424) ALT (SGPT) (BEAKER) (test 6 U/L 6-55 gaei=666) EGFR (BEAKER) (test 53 mL/min/1.73 sq m ESTIMATED GFR IS NOT vclg=3299) ACCURATE CREATININE CLEARANCE IN PREDICTING GLOMERULAR FILTRATION RATE. ESTIMATED GFR IS NOT APPLICABLE FOR DIALYSIS PATIENTS. Specimen moderately ictericHEPATIC FUNCTION [id number] 07:00:00 Test Item Value Reference Range Comments TOTAL PROTEIN (BEAKER) (test fxwu=256) 5.7 gm/dL 6.0-8.3 ALBUMIN (BEAKER) (test sgbi=6038) 4.0 g/dL 3.5-5.0 BILIRUBIN TOTAL (BEAKER) (test eazr=511) 4.6 mg/dL 0.2-1.2 BILIRUBIN DIRECT (BEAKER) (test ffjp=822) 1.8 mg/dL 0.1-0.5 ALKALINE PHOSPHATASE (BEAKER) (test qztm=479) 92 U/L 40-150 AST (SGOT) (BEAKER) (test nriv=469) 16 U/L 5-34 ALT (SGPT) (BEAKER) (test hdcq=599) 6 U/L 6-55 Specimen moderately [id number] 06:57:00 Test Item Value Reference Range Comments PARTIAL THROMBOPLASTIN TIME (BEAKER) (test 47.9 seconds 22.5-36.0 iisl=115) PROTHROMBIN TIME/[id number] 06:55:00 Test Item Value Reference Range Comments PROTIME (BEAKER) (test besz=337) 23.7 seconds 11.7-14.7 INR (BEAKER) (test yezn=557) 2.1 <=5.9 RECOMMENDED COUMADIN/WARFARIN INR THERAPY RANGESSTANDARD DOSE: 2.0 - 3.0 Includes: PROPHYLAXIS forvenous thrombosis, systemic embolization; TREATMENT for venous thrombosis and/or pulmonary embolus.HIGH RISK: Target INR is 2.5-3.5 for patients with mechanical heart valves.MR, SPINE, LUMBAR, WITHOUT [id number] 16:57:00FINAL REPORT MRI lumbar spine without contrast [...] Bain Verified Date/Time: 05/07/2018 16:57:00 Reading Location: [facility] Radiology Reading Room LACTIC ACID, VENOUS, WHOLE [id number] 14:13:00 Test Item Value Reference Range Comments LACTATE BLOOD VENOUS (2) (BEAKER) (test 2.6 mmol/L 0.5-2.2 twvj=8297) Effective 02/28/2016: Units/Reference Range ChangeNew: 0.5-2.2 mmol/L Previous: 5 -20 mg/dLSpecimen slightly ictericHEMOGLOBIN AND [id number] 13:51:00 Test Item Value Reference Range Comments HEMOGLOBIN (BEAKER) (test teml=424) 7.1 GM/DL 13.7-17.5 HEMATOCRIT (BEAKER) (test xdas=240) 21.7 % 40.1-51.0 U/S, RENAL, [id number] 09:48:00Reason for exam:->AKIFINAL REPORT Renal ultrasound Clinical [...] Haque Verified Date/Time: 05/07/2018 09:48:55 Reading Location: [address] Ultrasound Reading Room Electronically signed by: REECE HAQUE MD on 09:[id number] 09:04:00 Test Item Value Reference Range Comments MAGNESIUM (BEAKER) (test amvk=274) 2.0 mg/dL 1.6-2.6 COMPREHENSIVE METABOLIC [id number] 09:04:00 Test Item Value Reference Range Comments TOTAL PROTEIN (BEAKER) 5.2 gm/dL 6.0-8.3 (test fzrq=384) ALBUMIN (BEAKER) (test 3.5 g/dL 3.5-5.0 dehv=1033) ALKALINE PHOSPHATASE 96 U/L 40-150 (BEAKER) (test nuga=034) BILIRUBIN TOTAL (BEAKER) 4.1 mg/dL 0.2-1.2 (test sjyu=464) SODIUM (BEAKER) (test 129 meq/L 136-145 qtoq=638) POTASSIUM (BEAKER) (test 3.8 meq/L 3.5-5.1 oocj=187) CHLORIDE (BEAKER) (test 96 meq/L 98-107 obpr=950) CO2 (BEAKER) (test 25 meq/L 22-29 tgqa=184) BLOOD UREA NITROGEN 22 mg/dL 7-21 (BEAKER) (test bfxi=511) CREATININE (BEAKER) (test 1.57 mg/dL 0.57-1.25 lekm=666) GLUCOSE RANDOM (BEAKER) 122 mg/dL 70-105 (test lund=898) CALCIUM (BEAKER) (test 8.9 mg/dL 8.4-10.2 hxpp=736) AST (SGOT) (BEAKER) (test 15 U/L 5-34 bfvf=820) ALT (SGPT) (BEAKER) (test 7 U/L 6-55 afmn=929) EGFR (BEAKER) (test 47 mL/min/1.73 sq m ESTIMATED GFR IS NOT tnno=8743) ACCURATE CREATININE CLEARANCE IN PREDICTING GLOMERULAR FILTRATION RATE. ESTIMATED GFR IS NOT APPLICABLE FOR DIALYSIS PATIENTS. Specimen moderately ictericHEPATIC FUNCTION [id number] 09:04:00 Test Item Value Reference Range Comments TOTAL PROTEIN (BEAKER) (test uwrg=902) 5.2 gm/dL 6.0-8.3 ALBUMIN (BEAKER) (test adtx=3914) 3.5 g/dL 3.5-5.0 BILIRUBIN TOTAL (BEAKER) (test kmdo=472) 4.1 mg/dL 0.2-1.2 BILIRUBIN DIRECT (BEAKER) (test ibzs=171) 1.8 mg/dL 0.1-0.5 ALKALINE PHOSPHATASE (BEAKER) (test bldf=329) 96 U/L 40-150 AST (SGOT) (BEAKER) (test hvsu=731) 15 U/L 5-34 ALT (SGPT) (BEAKER) (test fpbt=446) 7 U/L 6-55 Specimen moderately ictericCBC W/PLT COUNT & AUTO [id number] 08: 26:00 Test Item Value Reference Range Comments WHITE BLOOD CELL COUNT (BEAKER) (test emau=031) 2.7 K/ L 3.5-10.5 RED BLOOD CELL COUNT (BEAKER) (test gvpm=182) 2.13 M/ L 4.63-6.08 HEMOGLOBIN (BEAKER) (test diph=758) 6.8 GM/DL 13.7-17.5 HEMATOCRIT (BEAKER) (test gbfg=168) 19.5 % 40.1-51.0 MEAN CORPUSCULAR VOLUME (BEAKER) (test ealn=745) 91.5 fL 79.0-92.2 MEAN CORPUSCULAR HEMOGLOBIN (BEAKER) (test 31.9 pg 25.7-32.2 qrjh=743) MEAN CORPUSCULAR HEMOGLOBIN CONC (BEAKER) (test 34.9 GM/DL 32.3-36.5 zowz=503) RED CELL DISTRIBUTION WIDTH (BEAKER) (test 17.5 % 11.6-14.4 podd=338) PLATELET COUNT (BEAKER) (test pymt=835) 52 K/CU MM 150-450 MEAN PLATELET VOLUME (BEAKER) (test iwcn=983) 9.1 fL 9.4-12.4 NUCLEATED RED BLOOD CELLS (BEAKER) (test 0 /100 WBC 0-0 gpdf=444) NEUTROPHILS RELATIVE PERCENT (BEAKER) (test 62 % begp=044) LYMPHOCYTES RELATIVE PERCENT (BEAKER) (test 16 % piib=633) MONOCYTES RELATIVE PERCENT (BEAKER) (test 17 % pouc=267) EOSINOPHILS RELATIVE PERCENT (BEAKER) (test 4 % gpub=941) BASOPHILS RELATIVE PERCENT (BEAKER) (test 0 % hefd=300) NEUTROPHILS ABSOLUTE COUNT (BEAKER) (test 1.66 K/ L 1.78-5.38 sfkk=836) LYMPHOCYTES ABSOLUTE COUNT (BEAKER) (test 0.43 K/ L 1.32-3.57 lzip=149) MONOCYTES ABSOLUTE COUNT (BEAKER) (test uymc=877) 0.44 K/ L 0.30-0.82 EOSINOPHILS ABSOLUTE COUNT (BEAKER) (test 0.11 K/ L 0.04-0.54 jjed=839) BASOPHILS ABSOLUTE COUNT (BEAKER) (test fxza=711) 0.00 K/ L 0.01-0.08 IMMATURE GRANULOCYTES-RELATIVE PERCENT (BEAKER) 1 % 0-1 (test fnlm=1646) PROTHROMBIN TIME/[id number] 08:08:00 Test Item Value Reference Range Comments PROTIME (BEAKER) (test smag=117) 28.3 seconds 11.7-14.7 INR (BEAKER) (test tmzy=814) 2.7 <=5.9 RECOMMENDED COUMADIN/WARFARIN INR THERAPY RANGESSTANDARD DOSE: 2.0 - 3.0 Includes: PROPHYLAXIS forvenous thrombosis, systemic embolization; TREATMENT for venous thrombosis and/or pulmonary embolus.HIGH RISK: Target INR is 2.5-3.5 for patients with mechanical heart valves.[id number] 19:47:00 Test Item Value Reference Range Comments SODIUM (BEAKER) (test mbfb=078) 129 meq/L 136-145 POTASSIUM (BEAKER) (test swfp=034) 4.6 meq/L 3.5-5.1 CHLORIDE (BEAKER) (test iaff=333) 96 meq/L 98-107 CO2 (BEAKER) (test auqn=923) 22 meq/L 22-29 Call [id number] AND [id number] 19:27:00 Test Item Value Reference Range Comments HEMOGLOBIN (BEAKER) (test glmz=758) 7.1 GM/DL 13.7-17.5 HEMATOCRIT (BEAKER) (test sdtl=149) 21.4 % 40.1-51.0 Draw after transfusion of 1u RBC, notify hospitalist if Hgb remains less than 7.0HEMOGLOBIN AND [id number] 11:52:00 Test Item Value Reference Range Comments HEMOGLOBIN (BEAKER) (test fxpw=069) 6.3 GM/DL 13.7-17.5 HEMATOCRIT (BEAKER) (test jqwm=237) 18.9 % 40.1-51.0 Notify Hepatology if Hgb< 7.0YUNIOR Sandoval PA-CPager#: .BASIC METABOLIC [id number] 05:55:00 Test Item Value Reference Range Comments SODIUM (BEAKER) (test 129 meq/L 136-145 ooja=391) POTASSIUM (BEAKER) (test 5.2 meq/L 3.5-5.1 ionu=379) CHLORIDE (BEAKER) (test 97 meq/L 98-107 wldd=533) CO2 (BEAKER) (test 22 meq/L 22-29 vnav=909) BLOOD UREA NITROGEN 28 mg/dL 7-21 (BEAKER) (test efpg=458) CREATININE (BEAKER) (test 1.95 mg/dL 0.57-1.25 uxol=315) GLUCOSE RANDOM (BEAKER) 102 mg/dL 70-105 (test mpkx=949) CALCIUM (BEAKER) (test 9.4 mg/dL 8.4-10.2 ktdx=252) EGFR (BEAKER) (test 36 mL/min/1.73 sq m ESTIMATED GFR IS NOT udnk=4049) ACCURATE CREATININE CLEARANCE IN PREDICTING GLOMERULAR FILTRATION RATE. ESTIMATED GFR IS NOT APPLICABLE FOR DIALYSIS PATIENTS. Specimen slightly ictericHEPATIC FUNCTION [id number] 05:55:00 Test Item Value Reference Range Comments TOTAL PROTEIN (BEAKER) (test htsd=190) 5.6 gm/dL 6.0-8.3 ALBUMIN (BEAKER) (test fvoo=7730) 3.4 g/dL 3.5-5.0 BILIRUBIN TOTAL (BEAKER) (test thga=889) 3.7 mg/dL 0.2-1.2 BILIRUBIN DIRECT (BEAKER) (test lapn=568) 2.5 mg/dL 0.1-0.5 ALKALINE PHOSPHATASE (BEAKER) (test hvqp=014) 108 U/L 40-150 AST (SGOT) (BEAKER) (test tttu=378) 17 U/L 5-34 ALT (SGPT) (BEAKER) (test awam=589) 7 U/L 6-55 Specimen slightly ictericCBC W/PLT COUNT & AUTO [id number] 05:42 :00 Test Item Value Reference Range Comments WHITE BLOOD CELL COUNT (BEAKER) (test ftpx=040) 3.7 K/ L 3.5-10.5 RED BLOOD CELL COUNT (BEAKER) (test qrov=391) 2.10 M/ L 4.63-6.08 HEMOGLOBIN (BEAKER) (test njzu=705) 6.5 GM/DL 13.7-17.5 HEMATOCRIT (BEAKER) (test idnr=119) 19.8 % 40.1-51.0 MEAN CORPUSCULAR VOLUME (BEAKER) (test iskb=894) 94.3 fL 79.0-92.2 MEAN CORPUSCULAR HEMOGLOBIN (BEAKER) (test 31.0 pg 25.7-32.2 nnlb=631) MEAN CORPUSCULAR HEMOGLOBIN CONC (BEAKER) (test 32.8 GM/DL 32.3-36.5 gnzx=571) RED CELL DISTRIBUTION WIDTH (BEAKER) (test 16.4 % 11.6-14.4 cewq=338) PLATELET COUNT (BEAKER) (test jumb=596) 54 K/CU MM 150-450 MEAN PLATELET VOLUME (BEAKER) (test ebkj=377) 9.8 fL 9.4-12.4 NUCLEATED RED BLOOD CELLS (BEAKER) (test 0 /100 WBC 0-0 imxr=126) NEUTROPHILS RELATIVE PERCENT (BEAKER) (test 62 % zgwu=615) LYMPHOCYTES RELATIVE PERCENT (BEAKER) (test 15 % twks=779) MONOCYTES RELATIVE PERCENT (BEAKER) (test 18 % ysgh=326) EOSINOPHILS RELATIVE PERCENT (BEAKER) (test 3 % jkpc=572) BASOPHILS RELATIVE PERCENT (BEAKER) (test 0 % gxdr=928) NEUTROPHILS ABSOLUTE COUNT (BEAKER) (test 2.27 K/ L 1.78-5.38 mapd=028) LYMPHOCYTES ABSOLUTE COUNT (BEAKER) (test 0.56 K/ L 1.32-3.57 xjct=191) MONOCYTES ABSOLUTE COUNT (BEAKER) (test cylj=486) 0.66 K/ L 0.30-0.82 EOSINOPHILS ABSOLUTE COUNT (BEAKER) (test 0.12 K/ L 0.04-0.54 afkb=534) BASOPHILS ABSOLUTE COUNT (BEAKER) (test nywq=444) 0.01 K/ L 0.01-0.08 IMMATURE GRANULOCYTES-RELATIVE PERCENT (BEAKER) 1 % 0-1 (test bjxr=3443) PROTHROMBIN TIME/[id number] 05:34:00 Test Item Value Reference Range Comments PROTIME (BEAKER) (test bqkr=977) 21.7 seconds 11.7-14.7 INR (BEAKER) (test tdbl=316) 1.9 <=5.9 RECOMMENDED COUMADIN/WARFARIN INR THERAPY RANGESSTANDARD DOSE: 2.0 - 3.0 Includes: PROPHYLAXIS forvenous thrombosis, systemic embolization; TREATMENT for venous thrombosis and/or pulmonary embolus.HIGH RISK: Target INR is 2.5-3.5 for patients with mechanical heart valves.EOSINOPHIL SMEAR, [id number] 21: 51:00 Test Item Value Reference Range Comments EOSINOPHIL SMEAR, URINE (BEAKER) (test No EOS seen No EOS seen jutn=8805) BODY FLUID CELL COUNT WITH [id number] 21:42:00 Test Item Value Reference Range Comments APPEARANCE FLUID (BEAKER) (test dnli=099) Hazy Clear COLOR FLUID (BEAKER) (test gzem=883) Yellow Colorless, Straw RBC FLUID (BEAKER) (test njuc=382) 70 /cu mm <=1 ADJUSTED WBC FLUID (BEAKER) (test dymc=0068) 44 /cu mm <=5 LINING CELLS (BEAKER) (test ljtm=7054) 8 /cu mm <=1 NEUTROPHILS FLUID (BEAKER) (test bogo=8663) 0 % LYMPHS FLUID (BEAKER) (test ebvb=738) 11 % MONO/MACROPHAGE FLUID (BEAKER) (test bzzm=732) 89 % EOSINOPHILS FLUID (BEAKER) (test vujt=399) 0 % BASO FLUID (BEAKER) (test towd=852) 0 % CONTAINER BODY FLUID (BEAKER) (test wmah=7180) EDTA Tube OSMOLALITY, [id number] 19:46:00 Test Item Value Reference Range Comments OSMOLALITY URINE (BEAKER) (test hwqh=629) 355 mOsm/kg 40-1400 SODIUM, RANDOM [id number] 19:35:00 Test Item Value Reference Range Comments SODIUM URINE (BEAKER) (test txic=164) < meq/L Reference Range: No NormalsPROTEIN, RANDOM [id number] 19:27:00 Test Item Value Reference Range Comments PROTEIN, URINE (BEAKER) (test rntf=4059) 7 mg/dL 0-14 CREATININE, RANDOM [id number] 19:25:00 Test Item Value Reference Range Comments CREATININE URINE (BEAKER) (test mhhy=767) 150.3 mg/dL Reference Range: No [id number] 16:26:00 Test Item Value Reference Range Comments PREALBUMIN (BEAKER) (test hdri=809) 5 mg/dL 14-45 Listed for OLT - Nutrition Surveillance ([facility] Hepatology Transplant Team)U/S, [id number] 14:56:00Reason for exam:->ascites - limit to 5L [...] Verified Date/Time: 05/05/2018 14:56:27 Reading Location: [facility] [id number] Ultrasound Reading Room [facility] METABOLIC [id number] 09:36:00 Test Item Value Reference Range Comments SODIUM (BEAKER) (test 125 meq/L 136-145 dail=892) POTASSIUM (BEAKER) (test 4.2 meq/L 3.5-5.1 tnoe=166) CHLORIDE (BEAKER) (test 95 meq/L 98-107 yyss=263) CO2 (BEAKER) (test 23 meq/L 22-29 xfqw=941) BLOOD UREA NITROGEN 29 mg/dL 7-21 (BEAKER) (test xuai=218) CREATININE (BEAKER) (test 2.01 mg/dL 0.57-1.25 jidc=681) GLUCOSE RANDOM (BEAKER) 112 mg/dL 70-105 (test svww=158) CALCIUM (BEAKER) (test 9.2 mg/dL 8.4-10.2 xwgs=933) EGFR (BEAKER) (test 35 mL/min/1.73 sq m ESTIMATED GFR IS NOT ppnj=9966) ACCURATE CREATININE CLEARANCE IN PREDICTING GLOMERULAR FILTRATION RATE. ESTIMATED GFR IS NOT APPLICABLE FOR DIALYSIS PATIENTS. Specimen slightly ictericHEPATIC FUNCTION [id number] 09:36:00 Test Item Value Reference Range Comments TOTAL PROTEIN (BEAKER) (test njyx=419) 5.3 gm/dL 6.0-8.3 ALBUMIN (BEAKER) (test tqac=6376) 3.0 g/dL 3.5-5.0 BILIRUBIN TOTAL (BEAKER) (test wgrc=530) 4.1 mg/dL 0.2-1.2 BILIRUBIN DIRECT (BEAKER) (test pfxg=016) 2.8 mg/dL 0.1-0.5 ALKALINE PHOSPHATASE (BEAKER) (test ybew=616) 115 U/L 40-150 AST (SGOT) (BEAKER) (test ezzm=327) 20 U/L 5-34 ALT (SGPT) (BEAKER) (test qhur=639) 9 U/L 6-55 Specimen slightly ictericCBC W/PLT COUNT & AUTO [id number] 09:28 :00 Test Item Value Reference Range Comments WHITE BLOOD CELL COUNT (BEAKER) (test ngqt=448) 4.4 K/ L 3.5-10.5 RED BLOOD CELL COUNT (BEAKER) (test zstt=822) 2.20 M/ L 4.63-6.08 HEMOGLOBIN (BEAKER) (test miup=897) 7.1 GM/DL 13.7-17.5 HEMATOCRIT (BEAKER) (test ltyp=231) 21.1 % 40.1-51.0 MEAN CORPUSCULAR VOLUME (BEAKER) (test buzh=156) 95.9 fL 79.0-92.2 MEAN CORPUSCULAR HEMOGLOBIN (BEAKER) (test 32.3 pg 25.7-32.2 jeao=664) MEAN CORPUSCULAR HEMOGLOBIN CONC (BEAKER) (test 33.6 GM/DL 32.3-36.5 leda=746) RED CELL DISTRIBUTION WIDTH (BEAKER) (test 16.7 % 11.6-14.4 wztl=559) PLATELET COUNT (BEAKER) (test pceh=011) 60 K/CU MM 150-450 MEAN PLATELET VOLUME (BEAKER) (test sgtg=944) 9.7 fL 9.4-12.4 NUCLEATED RED BLOOD CELLS (BEAKER) (test 0 /100 WBC 0-0 tcyd=148) NEUTROPHILS RELATIVE PERCENT (BEAKER) (test 71 % yvit=525) LYMPHOCYTES RELATIVE PERCENT (BEAKER) (test 9 % vysg=860) MONOCYTES RELATIVE PERCENT (BEAKER) (test 16 % bhua=152) EOSINOPHILS RELATIVE PERCENT (BEAKER) (test 3 % efxp=527) BASOPHILS RELATIVE PERCENT (BEAKER) (test 0 % ikas=251) NEUTROPHILS ABSOLUTE COUNT (BEAKER) (test 3.10 K/ L 1.78-5.38 iccj=375) LYMPHOCYTES ABSOLUTE COUNT (BEAKER) (test 0.39 K/ L 1.32-3.57 fznr=938) MONOCYTES ABSOLUTE COUNT (BEAKER) (test opgb=438) 0.69 K/ L 0.30-0.82 EOSINOPHILS ABSOLUTE COUNT (BEAKER) (test 0.12 K/ L 0.04-0.54 laai=140) BASOPHILS ABSOLUTE COUNT (BEAKER) (test pxtb=275) 0.01 K/ L 0.01-0.08 IMMATURE GRANULOCYTES-RELATIVE PERCENT (BEAKER) 1 % 0-1 (test sfuu=7981) PROTHROMBIN [id number] 09:07:00 Test Item Value Reference Range Comments PROTIME (BEAKER) (test jiut=556) 21.6 seconds 11.7-14.7 INR (BEAKER) (test eeue=899) 1.9 <=5.9 RECOMMENDED COUMADIN/WARFARIN INR THERAPY RANGESSTANDARD DOSE: 2.0 - 3.0 Includes: PROPHYLAXIS forvenous thrombosis, systemic embolization; TREATMENT for venous thrombosis and/or pulmonary embolus.HIGH RISK: Target INR is 2.5-3.5 for patients with mechanical heart valves.[id number] 13:59:00 Test Item Value Reference Range Comments POC-CREATININE (BEAKER) 2.0 mg/dL 0.6-1.[address] [facility] [address] [facility] (test zbvq=7675) [facility] [address] POC-EGFR (BEAKER) (test 35 mL/min/1.73M2 wnfs=5470) PET/CT, LIMITED AREA [id number] 08:25:00PET/ CT ChestReason for Exam:-> Elongated nodular [...] thighsAdditional imaging: NoneSerum blood glucose: 119CPT Code: 46086 FINDINGS:Head and Neck: There is no trisha [...] MDReport Verified Date/Time: 03/31/2018 08:25:09 POCT- GLUCOSE [id number] 14:54:00 Test Item Value Reference Range Comments POC-GLUCOSE METER (BEAKER) 119 mg/dL 70-[address] [facility] [address] (test alia=7102) [facility] [address] COMPREHENSIVE METABOLIC [id number] 16:49:00 Test Item Value Reference Range Comments TOTAL PROTEIN (BEAKER) 6.2 gm/dL 6.0-8.3 (test tiop=511) ALBUMIN (BEAKER) (test 3.4 g/dL 3.5-5.0 qnvi=8133) ALKALINE PHOSPHATASE 139 U/L 40-150 (BEAKER) (test pogq=142) BILIRUBIN TOTAL (BEAKER) 4.0 mg/dL 0.2-1.2 (test lqrg=493) SODIUM (BEAKER) (test 129 meq/L 136-145 ynkq=556) POTASSIUM (BEAKER) (test 4.3 meq/L 3.5-5.1 pclo=457) CHLORIDE (BEAKER) (test 96 meq/L 98-107 svud=969) CO2 (BEAKER) (test 22 meq/L 22-29 hjky=363) BLOOD UREA NITROGEN 28 mg/dL 7-21 (BEAKER) (test eiet=755) CREATININE (BEAKER) (test 1.51 mg/dL 0.57-1.25 gjbr=155) GLUCOSE RANDOM (BEAKER) 89 mg/dL 70-105 (test sdgj=746) CALCIUM (BEAKER) (test 9.5 mg/dL 8.4-10.2 lvds=503) AST (SGOT) (BEAKER) (test 26 U/L 5-34 aemj=221) ALT (SGPT) (BEAKER) (test 11 U/L 6-55 trol=239) EGFR (BEAKER) (test 49 mL/min/1.73 sq m ESTIMATED GFR IS NOT rlqq=1237) ACCURATE CREATININE CLEARANCE IN PREDICTING GLOMERULAR FILTRATION RATE. ESTIMATED GFR IS NOT APPLICABLE FOR DIALYSIS PATIENTS. Specimen slightly ictericBILIRUBIN, [id number] 16:49:00 Test Item Value Reference Range Comments BILIRUBIN DIRECT (BEAKER) (test mbnn=375) 2.8 mg/dL 0.1-0.5 PROTHROMBIN [id number] 16:36:00 Test Item Value Reference Range Comments PROTIME (BEAKER) (test shlw=341) 19.0 seconds 11.7-14.7 INR (BEAKER) (test yzri=741) 1.6 <=5.9 RECOMMENDED COUMADIN/WARFARIN INR THERAPY RANGESSTANDARD DOSE: 2.0 - 3.0 Includes: PROPHYLAXIS forvenous thrombosis, systemic embolization; TREATMENT for venous thrombosis and/or pulmonary embolus.HIGH RISK: Target INR is 2.5-3.5 for patients with mechanical heart valves.CBC W/PLT COUNT & AUTO [id number] 16:27:00 Test Item Value Reference Range Comments WHITE BLOOD CELL COUNT (BEAKER) (test qqwu=859) 6.0 K/ L 3.5-10.5 RED BLOOD CELL COUNT (BEAKER) (test tseu=528) 2.74 M/ L 4.63-6.08 HEMOGLOBIN (BEAKER) (test srsh=872) 9.3 GM/DL 13.7-17.5 HEMATOCRIT (BEAKER) (test mhvc=909) 27.6 % 40.1-51.0 MEAN CORPUSCULAR VOLUME (BEAKER) (test tvcq=349) 100.7 fL 79.0-92.2 MEAN CORPUSCULAR HEMOGLOBIN (BEAKER) (test 33.9 pg 25.7-32.2 lbkv=446) MEAN CORPUSCULAR HEMOGLOBIN CONC (BEAKER) (test 33.7 GM/DL 32.3-36.5 aqns=544) RED CELL DISTRIBUTION WIDTH (BEAKER) (test 14.9 % 11.6-14.4 ciwk=452) PLATELET COUNT (BEAKER) (test qvuj=619) 96 K/CU MM 150-450 MEAN PLATELET VOLUME (BEAKER) (test oynh=919) 9.4 fL 9.4-12.4 NUCLEATED RED BLOOD CELLS (BEAKER) (test 0 /100 WBC 0-0 njty=639) NEUTROPHILS RELATIVE PERCENT (BEAKER) (test 64 % tiwv=326) LYMPHOCYTES RELATIVE PERCENT (BEAKER) (test 11 % ovhh=621) MONOCYTES RELATIVE PERCENT (BEAKER) (test 16 % cjhr=019) EOSINOPHILS RELATIVE PERCENT (BEAKER) (test 7 % jqww=334) BASOPHILS RELATIVE PERCENT (BEAKER) (test 1 % csce=987) NEUTROPHILS ABSOLUTE COUNT (BEAKER) (test 3.83 K/ L 1.78-5.38 tvpx=289) LYMPHOCYTES ABSOLUTE COUNT (BEAKER) (test 0.66 K/ L 1.32-3.57 cqmb=528) MONOCYTES ABSOLUTE COUNT (BEAKER) (test ubdm=201) 0.95 K/ L 0.30-0.82 EOSINOPHILS ABSOLUTE COUNT (BEAKER) (test 0.41 K/ L 0.04-0.54 vscl=908) BASOPHILS ABSOLUTE COUNT (BEAKER) (test yxtg=839) 0.03 K/ L 0.01-0.08 IMMATURE GRANULOCYTES-RELATIVE PERCENT (BEAKER) 2 % 0-1 (test thsa=4489) BASIC METABOLIC [id number] 08:26:00 Test Item Value Reference Range Comments SODIUM (BEAKER) (test 127 meq/L 136-145 uhlo=146) POTASSIUM (BEAKER) (test 4.3 meq/L 3.5-5.1 maiw=635) CHLORIDE (BEAKER) (test 96 meq/L 98-107 wnbc=572) CO2 (BEAKER) (test 23 meq/L 22-29 htxa=949) BLOOD UREA NITROGEN 25 mg/dL 7-21 (BEAKER) (test npat=823) CREATININE (BEAKER) (test 1.46 mg/dL 0.57-1.25 jiex=550) GLUCOSE RANDOM (BEAKER) 130 mg/dL 70-105 (test vmla=755) CALCIUM (BEAKER) (test 9.1 mg/dL 8.4-10.2 wdke=777) EGFR (BEAKER) (test 51 mL/min/1.73 sq m ESTIMATED GFR IS NOT hklr=0614) ACCURATE CREATININE CLEARANCE IN PREDICTING GLOMERULAR FILTRATION RATE. ESTIMATED GFR IS NOT APPLICABLE FOR DIALYSIS PATIENTS. Specimen slightly ictericCBC (HEMOGRAM ONLY)2018-02-23 08:06:00 Test Item Value Reference Range Comments WHITE BLOOD CELL COUNT (BEAKER) (test aejq=046) 5.4 K/ L 3.5-10.5 RED BLOOD CELL COUNT (BEAKER) (test baoy=380) 2.64 M/ L 4.63-6.08 HEMOGLOBIN (BEAKER) (test hhnm=843) 8.8 GM/DL 13.7-17.5 HEMATOCRIT (BEAKER) (test khyc=233) 26.2 % 40.1-51.0 MEAN CORPUSCULAR VOLUME (BEAKER) (test tlhs=627) 99.2 fL 79.0-92.2 MEAN CORPUSCULAR HEMOGLOBIN (BEAKER) (test 33.3 pg 25.7-32.2 vavs=885) MEAN CORPUSCULAR HEMOGLOBIN CONC (BEAKER) (test 33.6 GM/DL 32.3-36.5 qrdz=042) RED CELL DISTRIBUTION WIDTH (BEAKER) (test 16.2 % 11.6-14.4 tzsu=960) PLATELET COUNT (BEAKER) (test oqlr=666) 100 K/CU MM 150-450 MEAN PLATELET VOLUME (BEAKER) (test bayq=058) 8.7 fL 9.4-12.4 NUCLEATED RED BLOOD CELLS (BEAKER) (test 0 /100 WBC 0-0 xzdn=919) COMPREHENSIVE METABOLIC [id number] 15:06:00 Test Item Value Reference Range Comments TOTAL PROTEIN (BEAKER) 6.5 gm/dL 6.0-8.3 (test lhvi=411) ALBUMIN (BEAKER) (test 3.7 g/dL 3.5-5.0 rarf=8309) ALKALINE PHOSPHATASE 135 U/L 40-150 (BEAKER) (test mtho=462) BILIRUBIN TOTAL (BEAKER) 4.5 mg/dL 0.2-1.2 (test phik=939) SODIUM (BEAKER) (test 131 meq/L 136-145 cxjk=780) POTASSIUM (BEAKER) (test 5.8 meq/L 3.5-5.1 hznf=922) CHLORIDE (BEAKER) (test 103 meq/L 98-107 dznh=867) CO2 (BEAKER) (test 24 meq/L 22-29 cdos=003) BLOOD UREA NITROGEN 27 mg/dL 7-21 (BEAKER) (test lplp=453) CREATININE (BEAKER) (test 1.17 mg/dL 0.57-1.25 eqvl=298) GLUCOSE RANDOM (BEAKER) 111 mg/dL 70-105 (test ykgd=521) CALCIUM (BEAKER) (test 11.0 mg/dL 8.4-10.2 iyle=650) AST (SGOT) (BEAKER) (test 28 U/L 5-34 lsio=783) ALT (SGPT) (BEAKER) (test 19 U/L 6-55 yebz=526) EGFR (BEAKER) (test 65 mL/min/1.73 sq m ESTIMATED GFR IS NOT pcnv=1496) ACCURATE CREATININE CLEARANCE IN PREDICTING GLOMERULAR FILTRATION RATE. ESTIMATED GFR IS NOT APPLICABLE FOR DIALYSIS PATIENTS. Specimen slightly ictericBILIRUBIN, [id number] 15:06:00 Test Item Value Reference Range Comments BILIRUBIN DIRECT (BEAKER) (test idtn=528) 3.0 mg/dL 0.1-0.5 PROTHROMBIN [id number] 14:42:00 Test Item Value Reference Range Comments PROTIME (BEAKER) (test hydp=397) 19.1 seconds 11.7-14.7 INR (BEAKER) (test dkov=102) 1.6 <=5.9 RECOMMENDED COUMADIN/WARFARIN INR THERAPY RANGESSTANDARD DOSE: 2.0 - 3.0 Includes: PROPHYLAXIS forvenous thrombosis, systemic embolization; TREATMENT for venous thrombosis and/or pulmonary embolus.HIGH RISK: Target INR is 2.5-3.5 for patients with mechanical heart valves.CBC W/PLT COUNT & AUTO [id number] 14:36:00 Test Item Value Reference Range Comments WHITE BLOOD CELL COUNT (BEAKER) (test cdtl=421) 5.5 K/ L 3.5-10.5 RED BLOOD CELL COUNT (BEAKER) (test birb=271) 2.84 M/ L 4.63-6.08 HEMOGLOBIN (BEAKER) (test jzkm=262) 9.5 GM/DL 13.7-17.5 HEMATOCRIT (BEAKER) (test ippq=657) 28.8 % 40.1-51.0 MEAN CORPUSCULAR VOLUME (BEAKER) (test tedd=799) 101.4 fL 79.0-92.2 MEAN CORPUSCULAR HEMOGLOBIN (BEAKER) (test 33.5 pg 25.7-32.2 xeup=067) MEAN CORPUSCULAR HEMOGLOBIN CONC (BEAKER) (test 33.0 GM/DL 32.3-36.5 hrlg=296) RED CELL DISTRIBUTION WIDTH (BEAKER) (test 19.4 % 11.6-14.4 vala=889) PLATELET COUNT (BEAKER) (test jhjt=948) 65 K/CU MM 150-450 MEAN PLATELET VOLUME (BEAKER) (test uaxr=729) 8.8 fL 9.4-12.4 NUCLEATED RED BLOOD CELLS (BEAKER) (test 0 /100 WBC 0-0 qghn=133) NEUTROPHILS RELATIVE PERCENT (BEAKER) (test 66 % fakz=972) LYMPHOCYTES RELATIVE PERCENT (BEAKER) (test 14 % vflx=559) MONOCYTES RELATIVE PERCENT (BEAKER) (test 15 % scbt=469) EOSINOPHILS RELATIVE PERCENT (BEAKER) (test 4 % dmkp=002) BASOPHILS RELATIVE PERCENT (BEAKER) (test 0 % mtxs=088) NEUTROPHILS ABSOLUTE COUNT (BEAKER) (test 3.58 K/ L 1.78-5.38 qfyh=577) LYMPHOCYTES ABSOLUTE COUNT (BEAKER) (test 0.78 K/ L 1.32-3.57 yker=314) MONOCYTES ABSOLUTE COUNT (BEAKER) (test nfpx=123) 0.79 K/ L 0.30-0.82 EOSINOPHILS ABSOLUTE COUNT (BEAKER) (test 0.23 K/ L 0.04-0.54 ffhk=593) BASOPHILS ABSOLUTE COUNT (BEAKER) (test nmbi=663) 0.02 K/ L 0.01-0.08 IMMATURE GRANULOCYTES-RELATIVE PERCENT (BEAKER) 1 % 0-1 (test whcc=3638) RAD, KNEE, COMPLETE (4 VIEWS), [id number] 11:15:00Reason for exam:->FALL , PAINFINAL REPORT Bilateral [...] MDReport Verified Date/Time: 01/06/2018 11:15:08 Reading Location: [facility] Radiology Reading Room RAD, KNEE, COMPLETE (4 VIEWS), [id number] 11:15:00Reason for exam:->FALL, PAINFINAL REPORT Bilateral knee [...] MDReport Verified Date/Time: 01/06/2018 11:15:08 Reading Location: [facility] Radiology Reading Room CBC W/PLT COUNT & AUTO [id number] 10: 58:00 Test Item Value Reference Range Comments WHITE BLOOD CELL COUNT (BEAKER) (test zwyz=255) 2.9 K/ L 3.5-10.5 RED BLOOD CELL COUNT (BEAKER) (test ajox=929) 2.27 M/ L 4.63-6.08 HEMOGLOBIN (BEAKER) (test simp=374) 7.1 GM/DL 13.7-17.5 HEMATOCRIT (BEAKER) (test uksr=080) 21.0 % 40.1-51.0 MEAN CORPUSCULAR VOLUME (BEAKER) (test lhby=996) 92.5 fL 79.0-92.2 MEAN CORPUSCULAR HEMOGLOBIN (BEAKER) (test 31.3 pg 25.7-32.2 efhr=381) MEAN CORPUSCULAR HEMOGLOBIN CONC (BEAKER) (test 33.8 GM/DL 32.3-36.5 tvvl=198) RED CELL DISTRIBUTION WIDTH (BEAKER) (test 17.2 % 11.6-14.4 ihuu=678) PLATELET COUNT (BEAKER) (test jvzi=930) 42 K/CU MM 150-450 MEAN PLATELET VOLUME (BEAKER) (test hheo=460) 10.1 fL 9.4-12.4 NUCLEATED RED BLOOD CELLS (BEAKER) (test 0 /100 WBC 0-0 xpdh=315) NEUTROPHILS RELATIVE PERCENT (BEAKER) (test 77 % kvpw=746) LYMPHOCYTES RELATIVE PERCENT (BEAKER) (test 12 % tiyj=563) MONOCYTES RELATIVE PERCENT (BEAKER) (test 10 % cyai=315) EOSINOPHILS RELATIVE PERCENT (BEAKER) (test 1 % nfro=831) BASOPHILS RELATIVE PERCENT (BEAKER) (test 0 % tfqq=653) NEUTROPHILS ABSOLUTE COUNT (BEAKER) (test 2.21 K/ L 1.78-5.38 etkx=229) LYMPHOCYTES ABSOLUTE COUNT (BEAKER) (test 0.33 K/ L 1.32-3.57 scaz=053) MONOCYTES ABSOLUTE COUNT (BEAKER) (test bjte=294) 0.30 K/ L 0.30-0.82 EOSINOPHILS ABSOLUTE COUNT (BEAKER) (test 0.03 K/ L 0.04-0.54 qppd=962) BASOPHILS ABSOLUTE COUNT (BEAKER) (test knjn=531) 0.00 K/ L 0.01-0.08 IMMATURE GRANULOCYTES-RELATIVE PERCENT (BEAKER) 0 % 0-1 (test zllr=2690) [id number] 06:06:00 Test Item Value Reference Range Comments PHOSPHORUS (BEAKER) (test qwpy=232) 3.6 mg/dL 2.3-4.7 [id number] 06:06:00 Test Item Value Reference Range Comments MAGNESIUM (BEAKER) (test jtuw=146) 2.0 mg/dL 1.6-2.6 BASIC METABOLIC [id number] 06:06:00 Test Item Value Reference Range Comments SODIUM (BEAKER) (test 130 meq/L 136-145 mibf=742) POTASSIUM (BEAKER) (test 4.4 meq/L 3.5-5.1 fdih=993) CHLORIDE (BEAKER) (test 100 meq/L 98-107 hmbp=843) CO2 (BEAKER) (test 23 meq/L 22-29 oivi=993) BLOOD UREA NITROGEN 21 mg/dL 7-21 (BEAKER) (test hpic=140) CREATININE (BEAKER) (test 1.11 mg/dL 0.57-1.25 etfn=206) GLUCOSE RANDOM (BEAKER) 120 mg/dL 70-105 (test cmlg=472) CALCIUM (BEAKER) (test 9.4 mg/dL 8.4-10.2 yolw=440) EGFR (BEAKER) (test 70 mL/min/1.73 sq m ESTIMATED GFR IS NOT vurr=0510) ACCURATE CREATININE CLEARANCE IN PREDICTING GLOMERULAR FILTRATION RATE. ESTIMATED GFR IS NOT APPLICABLE FOR DIALYSIS PATIENTS. Specimen slightly ictericPROTHROMBIN TIME/[id number] 06:02:00 Test Item Value Reference Range Comments PROTIME (BEAKER) (test muev=846) 22.9 seconds 11.7-14.7 INR (BEAKER) (test umgb=435) 2.0 <=5.9 RECOMMENDED COUMADIN/WARFARIN INR THERAPY RANGESSTANDARD DOSE: 2.0 - 3.0 Includes: PROPHYLAXIS forvenous thrombosis, systemic embolization; TREATMENT for venous thrombosis and/or pulmonary embolus.HIGH RISK: Target INR is 2.5-3.5 for patients with mechanical heart valves.CALCIUM, [id number] 06:01:00 Test Item Value Reference Range Comments CALCIUM IONIZED (BEAKER) (test ytke=948) 1.11 mmol/L 1.12-1.27 PH, BLOOD (BEAKER) (test czcr=4223) 7.53 CORTISOL,60 [id number] 23:20:00 Test Item Value Reference Range Comments CORTISOL BASELINE NETWORKED (BEAKER) (test 4.8 mcg/dL swbt=4341) CORTISOL 30 MINUTE NETWORKED (BEAKER) (test 9.2 mcg/dL gglu=9269) CORTISOL, 60 MINUTE (BEAKER) (test zgrs=5938) 12.6 ug/dL ACTH STIMULATION TEST INTERPRETATION GUIDELINES(Synonyms: [...] study by Mindy et al (NEVAEH 2000,283( 8):2239-96), the ACTH Stimulation Test provides important prognostic [...] serum cortisollevel 60 minutes after cosyntropin administration.CORTISOL,30 [id number] 22:35:00 Test Item Value Reference Range Comments CORTISOL BASELINE NETWORKED (BEAKER) (test 4.8 mcg/dL tnzg=3675) CORTISOL, 30 MINUTE (BEAKER) (test lhht=6821) 9.2 ug/dL ACTH STIMULATION TEST INTERPRETATION GUIDELINES(Synonyms: [...] Draw serum cortisollevel 60 minutes after cosyntropin administration.CORTISOL,[id number] 22:35:00 Test Item Value Reference Range Comments CORTISOL, BASELINE (BEAKER) (test ggcn=7502) 4.8 ug/dL ACTH STIMULATION TEST INTERPRETATION GUIDELINES(Synonyms: [...] serum cortisollevel 60 minutes after cosyntropin administration.U/S, [id number] 17:54:00Reason for exam:->therapeuticFINAL REPORT History: Ascites. PROCEDURE: Following informed written consent,the patient's right lower quadrant was prepped and draped in the usual sterile manner. 2% lidocaine was given locally for anesthesia. No conscious sedation was administered. Using ultrasound guidance, a 5 Algerian one-step catheter was advanced percutaneously into the [...] Date/Time: 01/05/2018 17: 54:16 Reading Location: [address] Ultrasound Reading Room [id number] 11:19:00 Test Item Value Reference Range Comments CORTISOL, TOTAL (BEAKER) (test zjii=0359) 2.7 ug/dL 3.7-19.4 [id number] 10:21:00 Test Item Value Reference Range Comments PHOSPHORUS (BEAKER) (test ahjk=426) 2.8 mg/dL 2.3-4.7 [id number] 10:21:00 Test Item Value Reference Range Comments MAGNESIUM (BEAKER) (test nfcg=206) 1.9 mg/dL 1.6-2.6 BASIC METABOLIC [id number] 10:21:00 Test Item Value Reference Range Comments SODIUM (BEAKER) (test 127 meq/L 136-145 zlwo=693) POTASSIUM (BEAKER) (test 5.0 meq/L 3.5-5.1 seqn=329) CHLORIDE (BEAKER) (test 100 meq/L 98-107 ftyn=192) CO2 (BEAKER) (test 22 meq/L 22-29 xmhu=931) BLOOD UREA NITROGEN 25 mg/dL 7-21 (BEAKER) (test ekki=708) CREATININE (BEAKER) (test 1.17 mg/dL 0.57-1.25 aoug=232) GLUCOSE RANDOM (BEAKER) 84 mg/dL 70-105 (test lpjx=216) CALCIUM (BEAKER) (test 8.7 mg/dL 8.4-10.2 teku=003) EGFR (BEAKER) (test 65 mL/min/1.73 sq m ESTIMATED GFR IS NOT nflu=5830) ACCURATE CREATININE CLEARANCE IN PREDICTING GLOMERULAR FILTRATION RATE. ESTIMATED GFR IS NOT APPLICABLE FOR DIALYSIS PATIENTS. Specimen slightly ictericCBC W/PLT COUNT & AUTO [id number] 08:42 :00 Test Item Value Reference Range Comments WHITE BLOOD CELL COUNT (BEAKER) (test yxsd=109) 2.7 K/ L 3.5-10.5 RED BLOOD CELL COUNT (BEAKER) (test bdsi=247) 2.33 M/ L 4.63-6.08 HEMOGLOBIN (BEAKER) (test zsmk=040) 7.3 GM/DL 13.7-17.5 HEMATOCRIT (BEAKER) (test hwrx=227) 22.0 % 40.1-51.0 MEAN CORPUSCULAR VOLUME (BEAKER) (test qccp=043) 94.4 fL 79.0-92.2 MEAN CORPUSCULAR HEMOGLOBIN (BEAKER) (test 31.3 pg 25.7-32.2 ucur=056) MEAN CORPUSCULAR HEMOGLOBIN CONC (BEAKER) (test 33.2 GM/DL 32.3-36.5 hxpr=988) RED CELL DISTRIBUTION WIDTH (BEAKER) (test 17.2 % 11.6-14.4 hwxv=315) PLATELET COUNT (BEAKER) (test hpph=374) 45 K/CU MM 150-450 MEAN PLATELET VOLUME (BEAKER) (test hvfd=654) 9.3 fL 9.4-12.4 NUCLEATED RED BLOOD CELLS (BEAKER) (test 0 /100 WBC 0-0 vemc=309) NEUTROPHILS RELATIVE PERCENT (BEAKER) (test 60 % yxta=170) LYMPHOCYTES RELATIVE PERCENT (BEAKER) (test 17 % ydvr=470) MONOCYTES RELATIVE PERCENT (BEAKER) (test 16 % bsws=726) EOSINOPHILS RELATIVE PERCENT (BEAKER) (test 6 % klgl=016) BASOPHILS RELATIVE PERCENT (BEAKER) (test 0 % uvco=328) NEUTROPHILS ABSOLUTE COUNT (BEAKER) (test 1.63 K/ L 1.78-5.38 ivrz=151) LYMPHOCYTES ABSOLUTE COUNT (BEAKER) (test 0.45 K/ L 1.32-3.57 qccc=638) MONOCYTES ABSOLUTE COUNT (BEAKER) (test wklp=906) 0.44 K/ L 0.30-0.82 EOSINOPHILS ABSOLUTE COUNT (BEAKER) (test 0.16 K/ L 0.04-0.54 fhff=945) BASOPHILS ABSOLUTE COUNT (BEAKER) (test pnxb=445) 0.01 K/ L 0.01-0.08 IMMATURE GRANULOCYTES-RELATIVE PERCENT (BEAKER) 1 % 0-1 (test seqo=3952) (MANUAL DIFFERENTIAL)2018-01-05 08:42:00 Test Item Value Reference Range Comments TOTAL COUNTED (BEAKER) (test cyqx=1728) WBC MORPHOLOGY (BEAKER) (test ibek=294) Normal PLT MORPHOLOGY (BEAKER) (test thyl=850) Normal ANISOCYTOSIS (BEAKER) (test ghwf=629) 1+ few CALCIUM, [id number] 08:10:00 Test Item Value Reference Range Comments CALCIUM IONIZED (BEAKER) (test maui=655) 1.08 mmol/L 1.12-1.27 PH, BLOOD (BEAKER) (test jrkl=0486) 7.44 PROTHROMBIN [id number] 07:12:00 Test Item Value Reference Range Comments PROTIME (BEAKER) (test hurt=793) 22.4 seconds 11.7-14.7 INR (BEAKER) (test syqc=825) 2.0 <=5.9 RECOMMENDED COUMADIN/WARFARIN INR THERAPY RANGESSTANDARD DOSE: 2.0 - 3.0 Includes: PROPHYLAXIS forvenous thrombosis, systemic embolization; TREATMENT for venous thrombosis and/or pulmonary embolus.HIGH RISK: Target INR is 2.5-3.5 for patients with mechanical heart valves.[id number] 17:54:00 Test Item Value Reference Range Comments SODIUM (BEAKER) (test sdpm=555) 129 meq/L 136-145 POTASSIUM (BEAKER) (test mbni=739) 5.5 meq/L 3.5-5.1 CHLORIDE (BEAKER) (test xebd=781) 101 meq/L 98-107 CO2 (BEAKER) (test odqm=590) 26 meq/L 22-29 Call [id number] with resultsCBC (HEMOGRAM ONLY)2018-01-04 07:16:00 Test Item Value Reference Range Comments WHITE BLOOD CELL COUNT (BEAKER) (test dymw=801) 2.9 K/ L 3.5-10.5 RED BLOOD CELL COUNT (BEAKER) (test ckpw=335) 2.25 M/ L 4.63-6.08 HEMOGLOBIN (BEAKER) (test xifc=940) 7.3 GM/DL 13.7-17.5 HEMATOCRIT (BEAKER) (test gmpk=930) 21.3 % 40.1-51.0 MEAN CORPUSCULAR VOLUME (BEAKER) (test xhcm=109) 94.7 fL 79.0-92.2 MEAN CORPUSCULAR HEMOGLOBIN (BEAKER) (test 32.4 pg 25.7-32.2 jgye=766) MEAN CORPUSCULAR HEMOGLOBIN CONC (BEAKER) (test 34.3 GM/DL 32.3-36.5 qlsm=463) RED CELL DISTRIBUTION WIDTH (BEAKER) (test 17.6 % 11.6-14.4 vyog=038) PLATELET COUNT (BEAKER) (test wehu=640) 59 K/CU MM 150-450 MEAN PLATELET VOLUME (BEAKER) (test oaqm=095) 11.3 fL 9.4-12.4 NUCLEATED RED BLOOD CELLS (BEAKER) (test 0 /100 WBC 0-0 yykq=185) COMPREHENSIVE METABOLIC [id number] 06:49:00 Test Item Value Reference Range Comments TOTAL PROTEIN (BEAKER) 5.3 gm/dL 6.0-8.3 Specimen slightly (test ljqs=823) hemolyzed ALBUMIN (BEAKER) (test 3.3 g/dL 3.5-5.0 Specimen slightly szln=9190) hemolyzed ALKALINE PHOSPHATASE 81 U/L 40-150 (BEAKER) (test lynj=269) BILIRUBIN TOTAL (BEAKER) 2.4 mg/dL 0.2-1.2 Specimen slightly (test thzt=118) hemolyzed SODIUM (BEAKER) (test 127 meq/L 136-145 sgpg=779) POTASSIUM (BEAKER) (test 5.7 meq/L 3.5-5.1 Specimen slightly dsue=186) hemolyzed CHLORIDE (BEAKER) (test 100 meq/L 98-107 nysc=637) CO2 (BEAKER) (test 20 meq/L 22-29 zokd=181) BLOOD UREA NITROGEN 22 mg/dL 7-21 (BEAKER) (test fepk=852) CREATININE (BEAKER) (test 1.14 mg/dL 0.57-1.25 Specimen slightly awwm=489) hemolyzed GLUCOSE RANDOM (BEAKER) 96 mg/dL 70-105 (test vkne=814) CALCIUM (BEAKER) (test 8.9 mg/dL 8.4-10.2 brop=185) AST (SGOT) (BEAKER) (test 30 U/L 5-34 Specimen slightly bnqf=545) hemolyzed ALT (SGPT) (BEAKER) (test 8 U/L 6-55 Specimen slightly hjxc=257) hemolyzed EGFR (BEAKER) (test 67 mL/min/1.73 sq m ESTIMATED GFR IS NOT drsg=8407) ACCURATE CREATININE CLEARANCE IN PREDICTING GLOMERULAR FILTRATION RATE. ESTIMATED GFR IS NOT APPLICABLE FOR DIALYSIS PATIENTS. Specimen slightly ictericPROTHROMBIN [id number] 06:15:00 Test Item Value Reference Range Comments PROTIME (BEAKER) (test snic=556) 22.7 seconds 11.7-14.7 INR (BEAKER) (test dxpc=333) 2.0 <=5.9 RECOMMENDED COUMADIN/WARFARIN INR THERAPY RANGESSTANDARD DOSE: 2.0 - 3.0 Includes: PROPHYLAXIS forvenous thrombosis, systemic embolization; TREATMENT for venous thrombosis and/or pulmonary embolus.HIGH RISK: Target INR is 2.5-3.5 for patients with mechanical heart valves.VITAMIN B12 AND [id number] 16:39 :00 Test Item Value Reference Range Comments VITAMIN B12 (BEAKER) (test kqjo=889) 829 pg/mL 213-816 FOLATE (BEAKER) (test atqe=265) 18.9 ng/mL >=7.0 CALCIUM, [id number] 07:14:00 Test Item Value Reference Range Comments CALCIUM IONIZED (BEAKER) (test nbgr=234) 1.08 mmol/L 1.12-1.27 PH, BLOOD (BEAKER) (test adcu=9742) 7.41 COMPREHENSIVE METABOLIC [id number] 07:00:00 Test Item Value Reference Range Comments TOTAL PROTEIN (BEAKER) 5.0 gm/dL 6.0-8.3 (test whnh=396) ALBUMIN (BEAKER) (test 3.1 g/dL 3.5-5.0 ozrs=5379) ALKALINE PHOSPHATASE 65 U/L 40-150 (BEAKER) (test gncp=812) BILIRUBIN TOTAL (BEAKER) 2.5 mg/dL 0.2-1.2 (test rshz=589) SODIUM (BEAKER) (test 127 meq/L 136-145 ualy=708) POTASSIUM (BEAKER) (test 4.7 meq/L 3.5-5.1 wfcx=175) CHLORIDE (BEAKER) (test 99 meq/L 98-107 wpwi=139) CO2 (BEAKER) (test 23 meq/L 22-29 pgve=489) BLOOD UREA NITROGEN 21 mg/dL 7-21 (BEAKER) (test uuui=232) CREATININE (BEAKER) (test 1.13 mg/dL 0.57-1.25 ovcm=417) GLUCOSE RANDOM (BEAKER) 92 mg/dL 70-105 (test lmht=448) CALCIUM (BEAKER) (test 8.9 mg/dL 8.4-10.2 przq=186) AST (SGOT) (BEAKER) (test 18 U/L 5-34 fzej=387) ALT (SGPT) (BEAKER) (test 8 U/L 6-55 oevf=347) EGFR (BEAKER) (test 68 mL/min/1.73 sq m ESTIMATED GFR IS NOT nmci=9137) ACCURATE CREATININE CLEARANCE IN PREDICTING GLOMERULAR FILTRATION RATE. ESTIMATED GFR IS NOT APPLICABLE FOR DIALYSIS PATIENTS. [id number] 06:37:00 Test Item Value Reference Range Comments PHOSPHORUS (BEAKER) (test uvwx=872) 3.2 mg/dL 2.3-4.7 [id number] 06:37:00 Test Item Value Reference Range Comments MAGNESIUM (BEAKER) (test lyvi=233) 1.9 mg/dL 1.6-2.6 CBC (HEMOGRAM ONLY)2018-01-03 06:25:00 Test Item Value Reference Range Comments WHITE BLOOD CELL COUNT (BEAKER) (test jxbv=852) 3.1 K/ L 3.5-10.5 RED BLOOD CELL COUNT (BEAKER) (test pkiu=410) 2.31 M/ L 4.63-6.08 HEMOGLOBIN (BEAKER) (test ukez=324) 7.4 GM/DL 13.7-17.5 HEMATOCRIT (BEAKER) (test ilwh=324) 21.6 % 40.1-51.0 MEAN CORPUSCULAR VOLUME (BEAKER) (test qzoh=651) 93.5 fL 79.0-92.2 MEAN CORPUSCULAR HEMOGLOBIN (BEAKER) (test 32.0 pg 25.7-32.2 kjzj=065) MEAN CORPUSCULAR HEMOGLOBIN CONC (BEAKER) (test 34.3 GM/DL 32.3-36.5 ndhu=819) RED CELL DISTRIBUTION WIDTH (BEAKER) (test 17.4 % 11.6-14.4 zmmq=576) PLATELET COUNT (BEAKER) (test dcdv=853) 50 K/CU MM 150-450 MEAN PLATELET VOLUME (BEAKER) (test uint=246) 10.5 fL 9.4-12.4 NUCLEATED RED BLOOD CELLS (BEAKER) (test 0 /100 WBC 0-0 jjvk=634) PROTHROMBIN [id number] 06:09:00 Test Item Value Reference Range Comments PROTIME (BEAKER) (test jnnm=476) 22.2 seconds 11.7-14.7 INR (BEAKER) (test niqz=797) 2.0 <=5.9 RECOMMENDED COUMADIN/WARFARIN INR THERAPY RANGESSTANDARD DOSE: 2.0 - 3.0 Includes: PROPHYLAXIS forvenous thrombosis, systemic embolization; TREATMENT for venous thrombosis and/or pulmonary embolus.HIGH RISK: Target INR is 2.5-3.5 for patients with mechanical heart valves.[id number] 07:54:00 Test Item Value Reference Range Comments PHOSPHORUS (BEAKER) (test cvga=925) 3.2 mg/dL 2.3-4.7 [id number] 07:54:00 Test Item Value Reference Range Comments MAGNESIUM (BEAKER) (test jkqs=643) 1.4 mg/dL 1.6-2.6 COMPREHENSIVE METABOLIC [id number] 07:54:00 Test Item Value Reference Range Comments TOTAL PROTEIN (BEAKER) 5.3 gm/dL 6.0-8.3 (test uetz=214) ALBUMIN (BEAKER) (test 3.4 g/dL 3.5-5.0 ijic=3836) ALKALINE PHOSPHATASE 55 U/L 40-150 (BEAKER) (test vdjb=254) BILIRUBIN TOTAL (BEAKER) 3.9 mg/dL 0.2-1.2 (test vfqc=420) SODIUM (BEAKER) (test 131 meq/L 136-145 ulsd=327) POTASSIUM (BEAKER) (test 4.3 meq/L 3.5-5.1 leej=233) CHLORIDE (BEAKER) (test 101 meq/L 98-107 gnox=236) CO2 (BEAKER) (test 23 meq/L 22-29 zjeb=440) BLOOD UREA NITROGEN 19 mg/dL 7-21 (BEAKER) (test rklc=468) CREATININE (BEAKER) (test 0.97 mg/dL 0.57-1.25 nglk=906) GLUCOSE RANDOM (BEAKER) 80 mg/dL 70-105 (test cywr=662) CALCIUM (BEAKER) (test 9.4 mg/dL 8.4-10.2 xibz=457) AST (SGOT) (BEAKER) (test 17 U/L 5-34 tujq=882) ALT (SGPT) (BEAKER) (test 8 U/L 6-55 gqnm=219) EGFR (BEAKER) (test 81 mL/min/1.73 sq m ESTIMATED GFR IS NOT smek=1185) ACCURATE CREATININE CLEARANCE IN PREDICTING GLOMERULAR FILTRATION RATE. ESTIMATED GFR IS NOT APPLICABLE FOR DIALYSIS PATIENTS. Specimen slightly ictericCBC W/PLT COUNT & AUTO [id number] 07:14 :00 Test Item Value Reference Range Comments WHITE BLOOD CELL COUNT (BEAKER) (test grve=123) 2.9 K/ L 3.5-10.5 RED BLOOD CELL COUNT (BEAKER) (test wblm=107) 2.55 M/ L 4.63-6.08 HEMOGLOBIN (BEAKER) (test zhzt=592) 8.1 GM/DL 13.7-17.5 HEMATOCRIT (BEAKER) (test zzan=359) 23.7 % 40.1-51.0 MEAN CORPUSCULAR VOLUME (BEAKER) (test hico=701) 92.9 fL 79.0-92.2 MEAN CORPUSCULAR HEMOGLOBIN (BEAKER) (test 31.8 pg 25.7-32.2 gzud=050) MEAN CORPUSCULAR HEMOGLOBIN CONC (BEAKER) (test 34.2 GM/DL 32.3-36.5 dqfg=729) RED CELL DISTRIBUTION WIDTH (BEAKER) (test 17.5 % 11.6-14.4 juoh=238) PLATELET COUNT (BEAKER) (test ylqn=751) 50 K/CU MM 150-450 MEAN PLATELET VOLUME (BEAKER) (test ogwy=060) 9.5 fL 9.4-12.4 NUCLEATED RED BLOOD CELLS (BEAKER) (test 0 /100 WBC 0-0 ixwr=952) NEUTROPHILS RELATIVE PERCENT (BEAKER) (test 57 % rswe=100) LYMPHOCYTES RELATIVE PERCENT (BEAKER) (test 17 % gmdl=796) MONOCYTES RELATIVE PERCENT (BEAKER) (test 18 % raxp=017) EOSINOPHILS RELATIVE PERCENT (BEAKER) (test 7 % tlru=001) BASOPHILS RELATIVE PERCENT (BEAKER) (test 0 % qezk=207) NEUTROPHILS ABSOLUTE COUNT (BEAKER) (test 1.65 K/ L 1.78-5.38 efzh=711) LYMPHOCYTES ABSOLUTE COUNT (BEAKER) (test 0.49 K/ L 1.32-3.57 qdqp=121) MONOCYTES ABSOLUTE COUNT (BEAKER) (test bgyf=022) 0.51 K/ L 0.30-0.82 EOSINOPHILS ABSOLUTE COUNT (BEAKER) (test 0.20 K/ L 0.04-0.54 hgrh=917) BASOPHILS ABSOLUTE COUNT (BEAKER) (test tucd=693) 0.01 K/ L 0.01-0.08 IMMATURE GRANULOCYTES-RELATIVE PERCENT (BEAKER) 1 % 0-1 (test lyhk=9241) (MANUAL DIFFERENTIAL)2018-01-02 07:14:00 Test Item Value Reference Range Comments TOTAL COUNTED (BEAKER) (test nhme=7518) CALCIUM, [id number] 07:04:00 Test Item Value Reference Range Comments CALCIUM IONIZED (BEAKER) (test amxn=919) 1.07 mmol/L 1.12-1.27 PH, BLOOD (BEAKER) (test vdgc=2648) 7.49 PROTHROMBIN [id number] 06:42:00 Test Item Value Reference Range Comments PROTIME (BEAKER) (test mera=277) 24.6 seconds 11.7-14.7 INR (BEAKER) (test tbyl=650) 2.2 <=5.9 RECOMMENDED COUMADIN/WARFARIN INR THERAPY RANGESSTANDARD DOSE: 2.0 - 3.0 Includes: PROPHYLAXIS forvenous thrombosis, systemic embolization; TREATMENT for venous thrombosis and/or pulmonary embolus.HIGH RISK: Target INR is 2.5-3.5 for patients with mechanical heart valves.CYTOMEGALOVIRUS ANTIBODY, [id number] 14:58:00 Test Item Value Reference Range Comments CYTOMEGALOVIRUS IGG ANTIBODY (BEAKER) (test Positive orch=115) CYTOMEGALOVIRUS ANTIBODY, [id number] 14:58:00 Test Item Value Reference Range Comments CYTOMEGALOVIRUS IGM ANTIBODY (BEAKER) (test Negative hkof=180) EBV-VCA ANTIBODY, [id number] 14:58:00 Test Item Value Reference Range Comments MARCELLUS-DAVIS VCA IGG (BEAKER) (test stkr=972) Positive EBV-VCA ANTIBODY, [id number] 14:58:00 Test Item Value Reference Range Comments MARCELLUS-DAVIS VCA IGM (BEAKER) (test jnio=993) Negative BODY FLUID CELL COUNT WITH [id number] 14:27:00 Test Item Value Reference Range Comments APPEARANCE FLUID (BEAKER) (test xawl=178) Slightly Hazy Clear COLOR FLUID (BEAKER) (test eanb=406) Yellow Colorless, Straw RBC FLUID (BEAKER) (test bvbz=635) 378 /cu mm <=1 ADJUSTED WBC FLUID (BEAKER) (test dsgv=7855) 84 /cu mm <=5 LINING CELLS (BEAKER) (test qgbg=2949) 17 /cu mm <=1 NEUTROPHILS FLUID (BEAKER) (test gsdq=3432) 1 % LYMPHS FLUID (BEAKER) (test kcbk=404) 14 % MONO/MACROPHAGE FLUID (BEAKER) (test 85 % winb=099) EOSINOPHILS FLUID (BEAKER) (test wlbh=052) 0 % BASO FLUID (BEAKER) (test milh=071) 0 % CONTAINER BODY FLUID (BEAKER) (test EDTA Tube obnv=9394) U/S, [id number] 11:17:00Reason for exam:->ascitesFINAL REPORT Ultrasound guided paracentesis, 01/01/2018. Clinical History:Ascites. Sedation: None. Inventory Checker: Paul Butler MD Public Service Representative: None. Estimated Blood Loss: < 1 cc. [...] was achieved with 1% lidocaine, a 5 Algerian one-step catheter was advanced into the peritoneal cavity under ultrasound guidance. After completion of drainage, the catheter was removed. There was no evidence ofcomplication. Patient Disposition: The patient was transferred to the inpatient unit from the ultrasound department after the paracentesis, in good condition. Impression:Successful ultrasound guided paracentesis. Signed: Paul Butler MDReport Verified Date/Time: 01/01/2018 11:17:26 Reading Location: [address] Ultrasound Reading Room CBC W/PLT COUNT & AUTO [id number] 08:55:00 Test Item Value Reference Range Comments WHITE BLOOD CELL COUNT (BEAKER) (test rdph=447) 2.6 K/ L 3.5-10.5 RED BLOOD CELL COUNT (BEAKER) (test wzun=491) 2.17 M/ L 4.63-6.08 HEMOGLOBIN (BEAKER) (test yopv=287) 6.9 GM/DL 13.7-17.5 HEMATOCRIT (BEAKER) (test josx=852) 20.6 % 40.1-51.0 MEAN CORPUSCULAR VOLUME (BEAKER) (test xsjp=985) 94.9 fL 79.0-92.2 MEAN CORPUSCULAR HEMOGLOBIN (BEAKER) (test 31.8 pg 25.7-32.2 uacz=960) MEAN CORPUSCULAR HEMOGLOBIN CONC (BEAKER) (test 33.5 GM/DL 32.3-36.5 gchb=880) RED CELL DISTRIBUTION WIDTH (BEAKER) (test 17.0 % 11.6-14.4 oexd=767) PLATELET COUNT (BEAKER) (test vtpz=466) 43 K/CU MM 150-450 MEAN PLATELET VOLUME (BEAKER) (test fvhl=337) 9.3 fL 9.4-12.4 NUCLEATED RED BLOOD CELLS (BEAKER) (test 0 /100 WBC 0-0 dmeh=787) NEUTROPHILS RELATIVE PERCENT (BEAKER) (test 62 % wutz=339) LYMPHOCYTES RELATIVE PERCENT (BEAKER) (test 13 % ivbd=332) MONOCYTES RELATIVE PERCENT (BEAKER) (test 18 % rqfi=052) EOSINOPHILS RELATIVE PERCENT (BEAKER) (test 6 % eguz=470) BASOPHILS RELATIVE PERCENT (BEAKER) (test 0 % jtuw=297) NEUTROPHILS ABSOLUTE COUNT (BEAKER) (test 1.58 K/ L 1.78-5.38 uhaq=140) LYMPHOCYTES ABSOLUTE COUNT (BEAKER) (test 0.33 K/ L 1.32-3.57 adqb=304) MONOCYTES ABSOLUTE COUNT (BEAKER) (test hntf=547) 0.46 K/ L 0.30-0.82 EOSINOPHILS ABSOLUTE COUNT (BEAKER) (test 0.15 K/ L 0.04-0.54 ioyu=859) BASOPHILS ABSOLUTE COUNT (BEAKER) (test nbca=775) 0.01 K/ L 0.01-0.08 IMMATURE GRANULOCYTES-RELATIVE PERCENT (BEAKER) 1 % 0-1 (test uszp=3261) (MANUAL DIFFERENTIAL)2018-01-01 08:55:00 Test Item Value Reference Range Comments TOTAL COUNTED (BEAKER) (test javm=6619) CALCIUM, [id number] 07:43:00 Test Item Value Reference Range Comments CALCIUM IONIZED (BEAKER) (test emzy=894) 1.14 mmol/L 1.12-1.27 PH, BLOOD (BEAKER) (test naax=7157) 7.52 [id number] 06:11:00 Test Item Value Reference Range Comments PHOSPHORUS (BEAKER) (test sees=865) 2.5 mg/dL 2.3-4.7 [id number] 06:11:00 Test Item Value Reference Range Comments MAGNESIUM (BEAKER) (test fvpc=414) 1.7 mg/dL 1.6-2.6 COMPREHENSIVE METABOLIC [id number] 06:11:00 Test Item Value Reference Range Comments TOTAL PROTEIN (BEAKER) 5.6 gm/dL 6.0-8.3 (test iiez=245) ALBUMIN (BEAKER) (test 3.6 g/dL 3.5-5.0 syhx=9240) ALKALINE PHOSPHATASE 68 U/L 40-150 (BEAKER) (test xdvw=031) BILIRUBIN TOTAL (BEAKER) 2.7 mg/dL 0.2-1.2 (test yxig=265) SODIUM (BEAKER) (test 132 meq/L 136-145 rrvx=860) POTASSIUM (BEAKER) (test 4.9 meq/L 3.5-5.1 hkmo=457) CHLORIDE (BEAKER) (test 102 meq/L 98-107 ncdc=427) CO2 (BEAKER) (test 24 meq/L 22-29 zyvp=733) BLOOD UREA NITROGEN 20 mg/dL 7-21 (BEAKER) (test hvdv=442) CREATININE (BEAKER) (test 1.17 mg/dL 0.57-1.25 asqg=269) GLUCOSE RANDOM (BEAKER) 92 mg/dL 70-105 (test cquc=251) CALCIUM (BEAKER) (test 9.7 mg/dL 8.4-10.2 btfz=644) AST (SGOT) (BEAKER) (test 16 U/L 5-34 vvaf=331) ALT (SGPT) (BEAKER) (test 8 U/L 6-55 shla=554) EGFR (BEAKER) (test 65 mL/min/1.73 sq m ESTIMATED GFR IS NOT ijhg=7163) ACCURATE CREATININE CLEARANCE IN PREDICTING GLOMERULAR FILTRATION RATE. ESTIMATED GFR IS NOT APPLICABLE FOR DIALYSIS PATIENTS. Specimen slightly ictericPROTHROMBIN [id number] 06:00:00 Test Item Value Reference Range Comments PROTIME (TUNG) (test riou=637) 24.0 seconds 11.7-14.7 INR (BEAKER) (test idjl=142) 2.2 <=5.9 RECOMMENDED COUMADIN/WARFARIN INR THERAPY RANGESSTANDARD DOSE: 2.0 - 3.0 Includes: PROPHYLAXIS forvenous thrombosis, systemic embolization; TREATMENT for venous thrombosis and/or pulmonary embolus.HIGH RISK: Target INR is 2.5-3.5 for patients with mechanical heart valves.CT, CHEST, WITHOUT [id number] 19:24:00FINAL REPORT HISTORY: Lung nodule, >=1cm COMPARISON [...] MDReport Verified Date/Time: 12/31/2017 19:24:12 Reading Location: [address] Consult Reading Room 07: 24 PMPERIPHERAL BLOOD SMEAR - HOLD [id number] 19:18:00 Test Item Value Reference Range Comments PERIPHERAL SMEAR SAVE (BEAKER) prepared and saved smear, (test vtvc=7769) 12/31/17 RETICULOCYTE [id number] 19:14:00 Test Item Value Reference Range Comments RETICULOCYTE COUNT PCT (BEAKER) (test ytva=214) 3.5 % 0.5-1.8 LACTATE DEHYDROGENASE (LDH)2017-12-31 17:47:00 Test Item Value Reference Range Comments LACTATE DEHYDROGENASE (BEAKER) (test xhxb=862) 112 U/L 125-220 BLOOD GAS, [id number] 17:27:00 Test Item Value Reference Range Comments PH ARTERIAL (BEAKER) (test zvlu=508) 7.45 7.35-7.45 PCO2 ARTERIAL (BEAKER) (test gpcm=101) 36 mmHg 35-45 PO2 ARTERIAL (BEAKER) (test jiuo=443) 76 mmHg 80-90 O2 SATURATION ARTERIAL (BEAKER) (test afmn=658) 96.1 % 96.0-97.0 HCO3 ARTERIAL (BEAKER) (test jwsj=703) 24 mmol/L 21-29 BASE EXCESS ARTERIAL (BEAKER) (test near=512) 0.2 mmol/L -2.0-3.0 PATIENT TEMPERATURE (BEAKER) (test lbie=5011) 36.4 C FIO2 (BEAKER) (test nqsy=4723) 21.0 % MYOCARD IMAGING, MULTI, PHARM, [id number] 15:12:00FINAL REPORT PROCEDURE: Rest/Stress MYOCARDIAL PERFUSION SPECT with regadenoson\\XA9\\ CPT CODE: 61830 INDICATION: Liver transplant evaluation HISTORY: Cardiac risk [...] extracardiac tracer distribution. 6. No previous [facility] study for comparison. NONINVASIVE RISK STRATIFICATION: The above findings are considered low risk (<1% annual mortality rate) based on the following criterion:- Normal orsmall myocardial perfusion defect at rest or with stress(JACC. 2012;59(9):857-81.) Signed: Mabel Napier Verified Date/Time: 12/31/2017 15:12:03 Reading Location: [address] Reading Room BILIRUBIN, [id number] 14:10:00 Test Item Value Reference Range Comments BILIRUBIN DIRECT (BEAKER) (test duig=768) 1.6 mg/dL 0.1-0.5 HEMOGLOBIN AND [id number] 13:22:00 Test Item Value Reference Range Comments HEMOGLOBIN (BEAKER) (test tiav=135) 7.3 GM/DL 13.7-17.5 HEMATOCRIT (BEAKER) (test fzeu=835) 21.9 % 40.1-51.0 CBC W/PLT COUNT & AUTO [id number] 11:06:00 Test Item Value Reference Range Comments WHITE BLOOD CELL COUNT (BEAKER) (test gdik=478) 2.2 K/ L 3.5-10.5 RED BLOOD CELL COUNT (BEAKER) (test fhcb=874) 2.07 M/ L 4.63-6.08 HEMOGLOBIN (BEAKER) (test wfhz=282) 6.8 GM/DL 13.7-17.5 HEMATOCRIT (BEAKER) (test umfl=625) 19.6 % 40.1-51.0 MEAN CORPUSCULAR VOLUME (BEAKER) (test phmy=165) 94.7 fL 79.0-92.2 MEAN CORPUSCULAR HEMOGLOBIN (BEAKER) (test 32.9 pg 25.7-32.2 kbco=026) MEAN CORPUSCULAR HEMOGLOBIN CONC (BEAKER) (test 34.7 GM/DL 32.3-36.5 bpuc=661) RED CELL DISTRIBUTION WIDTH (BEAKER) (test 16.9 % 11.6-14.4 pcjg=206) PLATELET COUNT (BEAKER) (test szjn=695) 47 K/CU MM 150-450 MEAN PLATELET VOLUME (BEAKER) (test fgnb=427) 9.7 fL 9.4-12.4 NUCLEATED RED BLOOD CELLS (BEAKER) (test 0 /100 WBC 0-0 bndw=322) NEUTROPHILS RELATIVE PERCENT (BEAKER) (test 54 % ofoa=409) LYMPHOCYTES RELATIVE PERCENT (BEAKER) (test 17 % qnpf=493) MONOCYTES RELATIVE PERCENT (BEAKER) (test 21 % cjyg=919) EOSINOPHILS RELATIVE PERCENT (BEAKER) (test 8 % qiir=622) BASOPHILS RELATIVE PERCENT (BEAKER) (test 1 % iaif=080) NEUTROPHILS ABSOLUTE COUNT (BEAKER) (test 1.17 K/ L 1.78-5.38 xoed=771) LYMPHOCYTES ABSOLUTE COUNT (BEAKER) (test 0.36 K/ L 1.32-3.57 zhwu=423) MONOCYTES ABSOLUTE COUNT (BEAKER) (test wxyk=813) 0.45 K/ L 0.30-0.82 EOSINOPHILS ABSOLUTE COUNT (BEAKER) (test 0.17 K/ L 0.04-0.54 vwku=640) BASOPHILS ABSOLUTE COUNT (BEAKER) (test qrky=464) 0.01 K/ L 0.01-0.08 IMMATURE GRANULOCYTES-RELATIVE PERCENT (BEAKER) 1 % 0-1 (test shpg=5187) (MANUAL DIFFERENTIAL)2017-12-31 11:06:00 Test Item Value Reference Range Comments TOTAL COUNTED (BEAKER) (test cpqo=1443) [id number] 08:37:00 Test Item Value Reference Range Comments PROTIME (BEAKER) (test gkci=033) 24.0 seconds 11.7-14.7 INR (BEAKER) (test smsm=840) 2.2 <=5.9 PARTIAL THROMBOPLASTIN TIME (BEAKER) (test 55.2 seconds 22.5-36.0 cskv=546) RECOMMENDED COUMADIN/WARFARIN INR THERAPY RANGESSTANDARD DOSE: 2.0 - 3.0 Includes: PROPHYLAXIS forvenous thrombosis, systemic embolization; TREATMENT for venous thrombosis and/or pulmonary embolus.HIGH RISK: Target INR is 2.5-3.5 for patients with mechanical heart valves.COMPREHENSIVE METABOLIC [id number] 06:37:00 Test Item Value Reference Range Comments TOTAL PROTEIN (BEAKER) 5.7 gm/dL 6.0-8.3 (test okjz=816) ALBUMIN (BEAKER) (test 3.7 g/dL 3.5-5.0 evet=4578) ALKALINE PHOSPHATASE 70 U/L 40-150 (BEAKER) (test fqii=726) BILIRUBIN TOTAL (BEAKER) 2.6 mg/dL 0.2-1.2 (test yzsc=327) SODIUM (BEAKER) (test 130 meq/L 136-145 meqv=258) POTASSIUM (BEAKER) (test 5.2 meq/L 3.5-5.1 xkha=056) CHLORIDE (BEAKER) (test 100 meq/L 98-107 tnmf=861) CO2 (BEAKER) (test 25 meq/L 22-29 ahgj=785) BLOOD UREA NITROGEN 20 mg/dL 7-21 (BEAKER) (test qkbg=617) CREATININE (BEAKER) (test 1.08 mg/dL 0.57-1.25 fdfq=331) GLUCOSE RANDOM (BEAKER) 91 mg/dL 70-105 (test bncx=287) CALCIUM (BEAKER) (test 9.6 mg/dL 8.4-10.2 aglz=963) AST (SGOT) (BEAKER) (test 16 U/L 5-34 okos=081) ALT (SGPT) (BEAKER) (test 6 U/L 6-55 swxh=370) EGFR (BEAKER) (test 72 mL/min/1.73 sq m ESTIMATED GFR IS NOT fvbq=3374) ACCURATE CREATININE CLEARANCE IN PREDICTING GLOMERULAR FILTRATION RATE. ESTIMATED GFR IS NOT APPLICABLE FOR DIALYSIS PATIENTS. Specimen slightly [id number] 06:01:00 Test Item Value Reference Range Comments RPR SCREEN (BEAKER) (test dktq=638) Nonreactive Nonreactive CRYPTOCOCCAL [id number] 05:59:00 Test Item Value Reference Range Comments CRYPTOCOCCAL ANTIGEN, SERUM (BEAKER) (test Negative Negative, Interference czhg=7250) RAD, MANDIBLE, MIN 4 [id number] 01:37:00Reason for exam:->liver transplant evalShould this be [...] Barcenaseport Verified Date/Time: 12/31/2017 01:37:57 Reading Location: [address] Reading Room Electronically signed by: CASH BARCENAS M.D. on 04/2018 01:37 AMRAD, CHEST, 2 [id number] 23:32:00Reason for exam:-> liver transplant evalShould this [...] further evaluation if warranted. Signed: [facility] Verified Date/Time: 12/30/2017 23:32:31 Reading Location: [address] Reading Room HEMOGLOBIN [id number] 22:54:00 Test Item Value Reference Range Comments HEMOGLOBIN A1C (BEAKER) (test ljpj=322) 4.1 % 4.3-6.1 HEPATITIS B SURFACE [id number] 16:31:00 Test Item Value Reference Range Comments HEPATITIS B SURFACE ANTIBODY (BEAKER) (test < mIU/mL <8.0 myny=418) HEPATITIS B SURFACE [id number] 16:29:00 Test Item Value Reference Range Comments HEPATITIS B SURFACE ANTIGEN (2) (BEAKER) (test Nonreactive Nonreactive sfos=6634) HEPATITIS B CORE ANTIBODY, [id number] 16:29:00 Test Item Value Reference Range Comments HEPATITIS B CORE IGM ANTIBODY (BEAKER) (test Nonreactive Nonreactive miow=197) HEPATITIS A ANTIBODY, [id number] 16:29:00 Test Item Value Reference Range Comments HEPATITIS A IGM ANTIBODY (BEAKER) (test Nonreactive Nonreactive ygpk=228) HEPATITIS B CORE ANTIBODY, [id number] 16:29:00 Test Item Value Reference Range Comments HEPATITIS B CORE TOTAL ANTIBODY (BEAKER) (test Nonreactive Nonreactive bvco=505) [id number] 16:26:00 Test Item Value Reference Range Comments T4 TOTAL (BEAKER) (test fwru=983) 3.5 ug/dL 4.9-11.7 [id number] 16:26:00 Test Item Value Reference Range Comments T3 TOTAL (BEAKER) (test zcxt=140) 42 ng/dL 48-159 [id number] 16:24:00 Test Item Value Reference Range Comments FERRITIN (BEAKER) (test ltkw=879) 1460 ng/mL 5-275 VITAMIN D, [id number] 16:24:00 Test Item Value Reference Range Comments VITAMIN D 25-OH (BEAKER) (test xjgn=0202) 6.9 ng/mL 6.6-49.9 Effective 08/06/2017: Reference Range ChangeNew: 6.6-49.9 ng/mL Previous: 13.0 -47.8 ng/mLRecommended Vitamin D Target Range: 30.0-40.0 ng/[id number] 16: 24:00 Test Item Value Reference Range Comments THYROID STIMULATING HORMONE (BEAKER) (test 1.55 uIU/mL 0.35-4.94 vhtb=266) CARCINOEMBRYONIC ANTIGEN (CEA)2017-12-30 16:24:00 Test Item Value Reference Range Comments CARCINOEMBRYONIC ANTIGEN (BEAKER) (test xahs=329) 3.0 ng/mL 0.0-5.0 [id number] 16:23:00 Test Item Value Reference Range Comments PROSTATE SPECIFIC ANTIGEN (BEAKER) (test ntid=370) 0.1 ng/mL 0.0-4.0 HIV-1 ANTIGEN WITH HIV-1/2 [id number] 16:23:00 Test Item Value Reference Range Comments HIV-1 ANTIGEN WITH HIV 1\\T\\2 ANTIBODY (2) Nonreactive Nonreactive (BEAKER) (test mevh=6290) HEPATITIS C [id number] 16:23:00 Test Item Value Reference Range Comments HEPATITIS C ANTIBODY (BEAKER) (test gcpu=870) Nonreactive Nonreactive LIPID [id number] 16:06:00 Test Item Value Reference Range Comments TRIGLYCERIDES (BEAKER) (test xbyv=042) 38 mg/dL CHOLESTEROL (BEAKER) (test vsqu=984) 51 mg/dL HDL CHOLESTEROL (BEAKER) (test vzjt=964) 10 mg/dL LDL CHOLESTEROL CALCULATED (BEAKER) (test kcpn=999) 33 mg/dL Triglyceride Reference Range: Low Risk [...] Value Reference Range Comments IRON (BEAKER) (test bczi=813) 90 ug/dL 40-160 TOTAL IRON BINDING CAPACITY (BEAKER) (test 85 ug/dL 250-450 wypa=791) IRON % SATURATION (2) (BEAKER) (test rxag=1069) 106 % 20-55 [id number] 16:04:00 Test Item Value Reference Range Comments TRANSFERRIN (BEAKER) (test qmpo=492) 65 mg/dL 174-382 Specimen slightly ictericURIC [id number] 16:02:00 Test Item Value Reference Range Comments URIC ACID (BEAKER) (test ysge=457) 8.5 mg/dL 2.6-7.2 Specimen slightly [id number] 15:50:00 Test Item Value Reference Range Comments FIBRINOGEN LEVEL (BEAKER) (test icrj=646) 161 mg/dl 225-434 BODY FLUID CULTURE + GRAM [id number] 11:45:00 Test Item Value Reference Range Comments CULTURE (BEAKER) (test rbrd=8613) No growth GRAM STAIN RESULT (BEAKER) (test No WBCs ltqq=1199) GRAM STAIN RESULT (BEAKER) (test No organisms seen pmav=95762) CBC W/PLT COUNT & AUTO [id number] 08:05:00 Test Item Value Reference Range Comments WHITE BLOOD CELL COUNT (BEAKER) (test ozwp=577) 2.0 K/ L 3.5-10.5 RED BLOOD CELL COUNT (BEAKER) (test sbks=042) 2.20 M/ L 4.63-6.08 HEMOGLOBIN (BEAKER) (test gfzc=354) 7.1 GM/DL 13.7-17.5 HEMATOCRIT (BEAKER) (test uxwg=280) 20.8 % 40.1-51.0 MEAN CORPUSCULAR VOLUME (BEAKER) (test pmqy=284) 94.5 fL 79.0-92.2 MEAN CORPUSCULAR HEMOGLOBIN (BEAKER) (test 32.3 pg 25.7-32.2 pjbf=584) MEAN CORPUSCULAR HEMOGLOBIN CONC (BEAKER) (test 34.1 GM/DL 32.3-36.5 xykt=900) RED CELL DISTRIBUTION WIDTH (BEAKER) (test 17.0 % 11.6-14.4 fdqm=786) PLATELET COUNT (BEAKER) (test tqir=101) 52 K/CU MM 150-450 MEAN PLATELET VOLUME (BEAKER) (test nkpr=412) 10.7 fL 9.4-12.4 NUCLEATED RED BLOOD CELLS (BEAKER) (test 0 /100 WBC 0-0 xwis=655) NEUTROPHILS RELATIVE PERCENT (BEAKER) (test 55 % rilq=983) LYMPHOCYTES RELATIVE PERCENT (BEAKER) (test 16 % yaew=713) MONOCYTES RELATIVE PERCENT (BEAKER) (test 20 % asmb=219) EOSINOPHILS RELATIVE PERCENT (BEAKER) (test 8 % poem=066) BASOPHILS RELATIVE PERCENT (BEAKER) (test 1 % kvra=810) NEUTROPHILS ABSOLUTE COUNT (BEAKER) (test 1.10 K/ L 1.78-5.38 bqnf=004) LYMPHOCYTES ABSOLUTE COUNT (BEAKER) (test 0.32 K/ L 1.32-3.57 pzgt=630) MONOCYTES ABSOLUTE COUNT (BEAKER) (test lqer=060) 0.40 K/ L 0.30-0.82 EOSINOPHILS ABSOLUTE COUNT (BEAKER) (test 0.16 K/ L 0.04-0.54 bmxu=146) BASOPHILS ABSOLUTE COUNT (BEAKER) (test tzkk=468) 0.01 K/ L 0.01-0.08 IMMATURE GRANULOCYTES-RELATIVE PERCENT (BEAKER) 1 % 0-1 (test vwlv=7592) (MANUAL DIFFERENTIAL)2017-12-30 08:05:00 Test Item Value Reference Range Comments TOTAL COUNTED (BEAKER) (test pqsj=9455) URINALYSIS W/ [id number] 06:46:00 Test Item Value Reference Range Comments COLOR (BEAKER) (test txzl=288) Yellow CLARITY (BEAKER) (test fise=453) Clear SPECIFIC GRAVITY UA (BEAKER) (test rmqn=486) 1.008 1.001-1.035 PH UA (BEAKER) (test uehg=688) 6.0 5.0-8.0 PROTEIN UA (BEAKER) (test dfrt=642) Negative Negative GLUCOSE UA (BEAKER) (test oaeb=129) Negative Negative KETONES UA (BEAKER) (test rerk=676) Negative Negative BILIRUBIN UA (BEAKER) (test hget=614) Negative Negative BLOOD UA (BEAKER) (test zqvm=353) Negative Negative NITRITE UA (BEAKER) (test odxo=974) Negative Negative LEUKOCYTE ESTERASE UA (BEAKER) (test ixaf=713) Negative Negative UROBILINOGEN UA (BEAKER) (test lozr=865) 0.2 mg/dL 0.2-1.0 RBC UA (BEAKER) (test gnxo=641) 0 /HPF WBC UA (BEAKER) (test dbch=101) 0 /HPF HYALINE CASTS (BEAKER) (test ibcn=206) 5 /LPF SOURCE(BEAKER) (test nybw=2963) Urine, Voided SODIUM, RANDOM [id number] 06:35:00 Test Item Value Reference Range Comments SODIUM URINE (BEAKER) (test btlp=347) < meq/L Reference Range: No NormalsPROTEIN, RANDOM [id number] 06:35:00 Test Item Value Reference Range Comments PROTEIN, URINE (BEAKER) (test nhqu=6578) < mg/dL 0-14 [id number] 06:21:00 Test Item Value Reference Range Comments MAGNESIUM (BEAKER) (test 1.8 mg/dL 1.6-2.6 Specimen slightly hemolyzed mubq=368) [id number] 06:21:00 Test Item Value Reference Range Comments PHOSPHORUS (BEAKER) (test 2.9 mg/dL 2.3-4.7 Specimen slightly hemolyzed upqn=583) COMPREHENSIVE METABOLIC [id number] 06:21:00 Test Item Value Reference Range Comments TOTAL PROTEIN (BEAKER) 5.6 gm/dL 6.0-8.3 Specimen slightly (test rruc=187) hemolyzed ALBUMIN (BEAKER) (test 3.5 g/dL 3.5-5.0 Specimen slightly grmu=3109) hemolyzed ALKALINE PHOSPHATASE 75 U/L 40-150 (BEAKER) (test usxx=281) BILIRUBIN TOTAL (BEAKER) 3.0 mg/dL 0.2-1.2 Specimen slightly (test hhce=445) hemolyzed SODIUM (BEAKER) (test 127 meq/L 136-145 wrac=057) POTASSIUM (BEAKER) (test 5.2 meq/L 3.5-5.1 Specimen slightly bpyn=070) hemolyzed CHLORIDE (BEAKER) (test 97 meq/L 98-107 mwjv=775) CO2 (BEAKER) (test 24 meq/L 22-29 wekt=725) BLOOD UREA NITROGEN 22 mg/dL 7-21 (BEAKER) (test mssv=304) CREATININE (BEAKER) (test 1.11 mg/dL 0.57-1.25 Specimen slightly kpdg=241) hemolyzed GLUCOSE RANDOM (BEAKER) 94 mg/dL 70-105 (test mivu=486) CALCIUM (BEAKER) (test 9.4 mg/dL 8.4-10.2 vbox=903) AST (SGOT) (BEAKER) (test 22 U/L 5-34 Specimen slightly bxdm=439) hemolyzed ALT (SGPT) (BEAKER) (test 7 U/L 6-55 Specimen slightly dsou=534) hemolyzed EGFR (BEAKER) (test 70 mL/min/1.73 sq m ESTIMATED GFR IS NOT irdn=1390) ACCURATE CREATININE CLEARANCE IN PREDICTING GLOMERULAR FILTRATION RATE. ESTIMATED GFR IS NOT APPLICABLE FOR DIALYSIS PATIENTS. Specimen slightly ictericCREATININE, RANDOM [id number] 06:19:00 Test Item Value Reference Range Comments CREATININE URINE (BEAKER) (test xgfe=833) 60.6 mg/dL Reference Range: No [id number] 13:43:00 Test Item Value Reference Range Comments ETHANOL (BEAKER) (test sptr=777) < mg/dL <=10 COMPREHENSIVE METABOLIC [id number] 08:23:00 Test Item Value Reference Range Comments TOTAL PROTEIN (BEAKER) 5.5 gm/dL 6.0-8.3 (test huoo=334) ALBUMIN (BEAKER) (test 3.3 g/dL 3.5-5.0 wnts=3177) ALKALINE PHOSPHATASE 85 U/L 40-150 (BEAKER) (test dwvd=017) BILIRUBIN TOTAL (BEAKER) 3.8 mg/dL 0.2-1.2 (test ncco=336) SODIUM (BEAKER) (test 125 meq/L 136-145 xuhb=187) POTASSIUM (BEAKER) (test 4.7 meq/L 3.5-5.1 biea=426) CHLORIDE (BEAKER) (test 96 meq/L 98-107 abxk=945) CO2 (BEAKER) (test 21 meq/L 22-29 iqvx=833) BLOOD UREA NITROGEN 22 mg/dL 7-21 (BEAKER) (test fbzj=721) CREATININE (BEAKER) (test 1.26 mg/dL 0.57-1.25 vyyy=441) GLUCOSE RANDOM (BEAKER) 95 mg/dL 70-105 (test vfgw=707) CALCIUM (BEAKER) (test 9.1 mg/dL 8.4-10.2 gafn=371) AST (SGOT) (BEAKER) (test 20 U/L 5-34 wybc=379) ALT (SGPT) (BEAKER) (test 8 U/L 6-55 ndng=052) EGFR (BEAKER) (test 60 mL/min/1.73 sq m ESTIMATED GFR IS NOT oiul=1046) ACCURATE CREATININE CLEARANCE IN PREDICTING GLOMERULAR FILTRATION RATE. ESTIMATED GFR IS NOT APPLICABLE FOR DIALYSIS PATIENTS. Specimen slightly ictericCBC W/PLT COUNT & AUTO [id number] 07:17 :00 Test Item Value Reference Range Comments WHITE BLOOD CELL COUNT (BEAKER) (test syhs=760) 2.8 K/ L 3.5-10.5 RED BLOOD CELL COUNT (BEAKER) (test nmla=485) 2.28 M/ L 4.63-6.08 HEMOGLOBIN (BEAKER) (test copy=833) 7.3 GM/DL 13.7-17.5 HEMATOCRIT (BEAKER) (test hwcj=948) 21.4 % 40.1-51.0 MEAN CORPUSCULAR VOLUME (BEAKER) (test mdxb=539) 93.9 fL 79.0-92.2 MEAN CORPUSCULAR HEMOGLOBIN (BEAKER) (test 32.0 pg 25.7-32.2 kvsg=546) MEAN CORPUSCULAR HEMOGLOBIN CONC (BEAKER) (test 34.1 GM/DL 32.3-36.5 aeog=033) RED CELL DISTRIBUTION WIDTH (BEAKER) (test 16.9 % 11.6-14.4 nhqm=161) PLATELET COUNT (BEAKER) (test ryfb=123) 52 K/CU MM 150-450 MEAN PLATELET VOLUME (BEAKER) (test phwy=078) 9.8 fL 9.4-12.4 NUCLEATED RED BLOOD CELLS (BEAKER) (test 0 /100 WBC 0-0 sses=873) NEUTROPHILS RELATIVE PERCENT (BEAKER) (test 61 % ftyo=758) LYMPHOCYTES RELATIVE PERCENT (BEAKER) (test 14 % mpqi=836) MONOCYTES RELATIVE PERCENT (BEAKER) (test 18 % qyew=098) EOSINOPHILS RELATIVE PERCENT (BEAKER) (test 7 % bndq=031) BASOPHILS RELATIVE PERCENT (BEAKER) (test 0 % hxrm=767) NEUTROPHILS ABSOLUTE COUNT (BEAKER) (test 1.69 K/ L 1.78-5.38 vwsx=112) LYMPHOCYTES ABSOLUTE COUNT (BEAKER) (test 0.38 K/ L 1.32-3.57 pagb=609) MONOCYTES ABSOLUTE COUNT (BEAKER) (test fggx=249) 0.51 K/ L 0.30-0.82 EOSINOPHILS ABSOLUTE COUNT (BEAKER) (test 0.18 K/ L 0.04-0.54 celf=518) BASOPHILS ABSOLUTE COUNT (BEAKER) (test lewe=246) 0.01 K/ L 0.01-0.08 IMMATURE GRANULOCYTES-RELATIVE PERCENT (BEAKER) 1 % 0-1 (test htzg=9705) CT, [id number] 22:20:00FINAL REPORT EXAM: CT of the abdomen [...] MDReport Verified Date/Time: 12/28/2017 22:20:52 Reading Location: [address] Transitional Reading Room CBC W/PLT COUNT & AUTO [id number] 18:06:00 Test Item Value Reference Range Comments WHITE BLOOD CELL COUNT (BEAKER) (test rzrl=133) 2.9 K/ L 3.5-10.5 RED BLOOD CELL COUNT (BEAKER) (test fffi=485) 2.03 M/ L 4.63-6.08 HEMOGLOBIN (BEAKER) (test hdcy=091) 6.5 GM/DL 13.7-17.5 HEMATOCRIT (BEAKER) (test qtfx=752) 19.2 % 40.1-51.0 MEAN CORPUSCULAR VOLUME (BEAKER) (test jwsx=924) 94.6 fL 79.0-92.2 MEAN CORPUSCULAR HEMOGLOBIN (BEAKER) (test 32.0 pg 25.7-32.2 tnbf=498) MEAN CORPUSCULAR HEMOGLOBIN CONC (BEAKER) (test 33.9 GM/DL 32.3-36.5 jjja=178) RED CELL DISTRIBUTION WIDTH (BEAKER) (test 17.6 % 11.6-14.4 zngo=272) PLATELET COUNT (BEAKER) (test ppvl=517) 46 K/CU MM 150-450 MEAN PLATELET VOLUME (BEAKER) (test vrss=938) 9.3 fL 9.4-12.4 NUCLEATED RED BLOOD CELLS (BEAKER) (test 0 /100 WBC 0-0 uyar=159) NEUTROPHILS RELATIVE PERCENT (BEAKER) (test 66 % mpxs=895) LYMPHOCYTES RELATIVE PERCENT (BEAKER) (test 12 % yppj=931) MONOCYTES RELATIVE PERCENT (BEAKER) (test 15 % bmab=120) EOSINOPHILS RELATIVE PERCENT (BEAKER) (test 6 % qyda=691) BASOPHILS RELATIVE PERCENT (BEAKER) (test 0 % htti=526) NEUTROPHILS ABSOLUTE COUNT (BEAKER) (test 1.92 K/ L 1.78-5.38 tvsf=448) LYMPHOCYTES ABSOLUTE COUNT (BEAKER) (test 0.36 K/ L 1.32-3.57 qyrp=186) MONOCYTES ABSOLUTE COUNT (BEAKER) (test gjzq=356) 0.44 K/ L 0.30-0.82 EOSINOPHILS ABSOLUTE COUNT (BEAKER) (test 0.16 K/ L 0.04-0.54 ggwj=041) BASOPHILS ABSOLUTE COUNT (BEAKER) (test alkp=971) 0.01 K/ L 0.01-0.08 IMMATURE GRANULOCYTES-RELATIVE PERCENT (BEAKER) 1 % 0-1 (test suzq=3179) CBC W/PLT COUNT & AUTO [id number] 12:30:00 Test Item Value Reference Range Comments WHITE BLOOD CELL COUNT (BEAKER) (test qlbb=749) 3.1 K/ L 3.5-10.5 RED BLOOD CELL COUNT (BEAKER) (test azcv=897) 2.09 M/ L 4.63-6.08 HEMOGLOBIN (BEAKER) (test bjbx=276) 6.8 GM/DL 13.7-17.5 HEMATOCRIT (BEAKER) (test ttrp=374) 19.9 % 40.1-51.0 MEAN CORPUSCULAR VOLUME (BEAKER) (test vkqe=309) 95.2 fL 79.0-92.2 MEAN CORPUSCULAR HEMOGLOBIN (BEAKER) (test 32.5 pg 25.7-32.2 vvxd=927) MEAN CORPUSCULAR HEMOGLOBIN CONC (BEAKER) (test 34.2 GM/DL 32.3-36.5 wgwg=857) RED CELL DISTRIBUTION WIDTH (BEAKER) (test 17.5 % 11.6-14.4 akuv=193) PLATELET COUNT (BEAKER) (test ucha=480) 65 K/CU MM 150-450 MEAN PLATELET VOLUME (BEAKER) (test izal=435) 10.6 fL 9.4-12.4 NUCLEATED RED BLOOD CELLS (BEAKER) (test 0 /100 WBC 0-0 wryh=428) NEUTROPHILS RELATIVE PERCENT (BEAKER) (test 60 % hfmt=460) LYMPHOCYTES RELATIVE PERCENT (BEAKER) (test 14 % phjx=674) MONOCYTES RELATIVE PERCENT (BEAKER) (test 17 % pxdk=714) EOSINOPHILS RELATIVE PERCENT (BEAKER) (test 8 % cddm=697) BASOPHILS RELATIVE PERCENT (BEAKER) (test 0 % lvee=759) NEUTROPHILS ABSOLUTE COUNT (BEAKER) (test 1.85 K/ L 1.78-5.38 vpri=564) LYMPHOCYTES ABSOLUTE COUNT (BEAKER) (test 0.42 K/ L 1.32-3.57 vyym=376) MONOCYTES ABSOLUTE COUNT (BEAKER) (test doua=885) 0.52 K/ L 0.30-0.82 EOSINOPHILS ABSOLUTE COUNT (BEAKER) (test 0.26 K/ L 0.04-0.54 fycv=678) BASOPHILS ABSOLUTE COUNT (BEAKER) (test ydya=951) 0.01 K/ L 0.01-0.08 IMMATURE GRANULOCYTES-RELATIVE PERCENT (BEAKER) 1 % 0-1 (test rnsd=0573) U/S, [id number] 06:59:00Limit fluid removal to no more than 5 litersReason for exam:->ascites, concern for sbpShould thisbe performed at the bedside?->NoFINAL REPORT Paracentesis dated 2017 Procedure: Ultrasound-guided paracentesis. Preprocedure diagnosis: Ascites Postprocedure diagnosis: Ascites Conscious sedation: None. Radiologist: Lena Lynn M.D. Public Service Representative: None Anesthesia: 1% Xylocaine mixed with sodium bicarbonate local anesthesia. Technique: After obtaining informed consent, ultrasound-guided paracentesis was performed under usual sterile technique. Using a 5 iraqi drainage catheter, puncture was made in the right lower quadrant abdomen. Approximately 5000 cc of serous fluid was removed. Patient tolerated the procedure well without complication. Complication: None Graft/ Implant: None Estimated Blood Loss: NoneImpression: Ultrasound-guided paracentesis. Signed: Lena Lynn MDReport Verified Date/Time: 12/28/2017 06:59 :16 Reading Location: [facility] C[address] CT Body Reading Room ALPHA FETOPROTEIN (AFP), TUMOR [id number] 06:22:00 Test Item Value Reference Range Comments ALPHA-FETOPROTEIN (BEAKER) (test cuiv=7257) 4.1 ng/mL <10.0 COMPREHENSIVE METABOLIC [id number] 06:00:00 Test Item Value Reference Range Comments TOTAL PROTEIN (BEAKER) 5.3 gm/dL 6.0-8.3 (test mjmv=745) ALBUMIN (BEAKER) (test 2.7 g/dL 3.5-5.0 mcuy=6271) ALKALINE PHOSPHATASE 94 U/L 40-150 (BEAKER) (test rjmu=310) BILIRUBIN TOTAL (BEAKER) 3.7 mg/dL 0.2-1.2 (test ezgk=634) SODIUM (BEAKER) (test 124 meq/L 136-145 ilba=475) POTASSIUM (BEAKER) (test 4.6 meq/L 3.5-5.1 moxa=547) CHLORIDE (BEAKER) (test 96 meq/L 98-107 vvfx=938) CO2 (BEAKER) (test 22 meq/L 22-29 cjpm=649) BLOOD UREA NITROGEN 22 mg/dL 7-21 (BEAKER) (test xhec=940) CREATININE (BEAKER) (test 1.40 mg/dL 0.57-1.25 ckem=204) GLUCOSE RANDOM (BEAKER) 89 mg/dL 70-105 (test nxun=281) CALCIUM (BEAKER) (test 8.8 mg/dL 8.4-10.2 auza=948) AST (SGOT) (BEAKER) (test 25 U/L 5-34 gdhk=246) ALT (SGPT) (BEAKER) (test 10 U/L 6-55 obvr=055) EGFR (BEAKER) (test 53 mL/min/1.73 sq m ESTIMATED GFR IS NOT ajqw=0805) ACCURATE CREATININE CLEARANCE IN PREDICTING GLOMERULAR FILTRATION RATE. ESTIMATED GFR IS NOT APPLICABLE FOR DIALYSIS PATIENTS. Specimen slightly ictericCBC W/PLT COUNT & AUTO [id number] 05:50 :00 Test Item Value Reference Range Comments WHITE BLOOD CELL COUNT (BEAKER) (test fbso=214) 3.1 K/ L 3.5-10.5 RED BLOOD CELL COUNT (BEAKER) (test bswm=397) 2.00 M/ L 4.63-6.08 HEMOGLOBIN (BEAKER) (test qxbt=108) 6.4 GM/DL 13.7-17.5 HEMATOCRIT (BEAKER) (test pgyc=377) 18.9 % 40.1-51.0 MEAN CORPUSCULAR VOLUME (BEAKER) (test urfb=649) 94.5 fL 79.0-92.2 MEAN CORPUSCULAR HEMOGLOBIN (BEAKER) (test 32.0 pg 25.7-32.2 aaeg=241) MEAN CORPUSCULAR HEMOGLOBIN CONC (BEAKER) (test 33.9 GM/DL 32.3-36.5 gskc=079) RED CELL DISTRIBUTION WIDTH (BEAKER) (test 17.9 % 11.6-14.4 ssks=047) PLATELET COUNT (BEAKER) (test otht=605) 59 K/CU MM 150-450 MEAN PLATELET VOLUME (BEAKER) (test injs=762) 10.4 fL 9.4-12.4 NUCLEATED RED BLOOD CELLS (BEAKER) (test 0 /100 WBC 0-0 pkqb=999) NEUTROPHILS RELATIVE PERCENT (BEAKER) (test 63 % lklb=993) LYMPHOCYTES RELATIVE PERCENT (BEAKER) (test 14 % dasg=787) MONOCYTES RELATIVE PERCENT (BEAKER) (test 15 % invv=580) EOSINOPHILS RELATIVE PERCENT (BEAKER) (test 7 % tvpc=652) BASOPHILS RELATIVE PERCENT (BEAKER) (test 0 % jqok=695) NEUTROPHILS ABSOLUTE COUNT (BEAKER) (test 1.94 K/ L 1.78-5.38 xrdm=182) LYMPHOCYTES ABSOLUTE COUNT (BEAKER) (test 0.44 K/ L 1.32-3.57 egxv=428) MONOCYTES ABSOLUTE COUNT (BEAKER) (test uyxk=861) 0.47 K/ L 0.30-0.82 EOSINOPHILS ABSOLUTE COUNT (BEAKER) (test 0.21 K/ L 0.04-0.54 wckq=335) BASOPHILS ABSOLUTE COUNT (BEAKER) (test ntns=308) 0.01 K/ L 0.01-0.08 IMMATURE GRANULOCYTES-RELATIVE PERCENT (BEAKER) 1 % 0-1 (test deav=3640) BODY FLUID CELL COUNT WITH [id number] 20:39:00 Test Item Value Reference Range Comments APPEARANCE FLUID (BEAKER) (test gvbs=102) Slightly Hazy Clear COLOR FLUID (BEAKER) (test suhu=169) Yellow Colorless, Straw RBC FLUID (BEAKER) (test qapq=611) 90 /cu mm <=1 ADJUSTED WBC FLUID (BEAKER) (test amtr=0502) 47 /cu mm <=5 LINING CELLS (BEAKER) (test rarl=3983) 3 /cu mm <=1 NEUTROPHILS FLUID (BEAKER) (test nqbb=3135) 2 % LYMPHS FLUID (BEAKER) (test uyge=696) 19 % MONO/MACROPHAGE FLUID (BEAKER) (test 79 % xgxp=187) EOSINOPHILS FLUID (BEAKER) (test vjme=834) 0 % BASO FLUID (BEAKER) (test qoug=611) 0 % CONTAINER BODY FLUID (BEAKER) (test EDTA Tube dovd=3444) ALBUMIN, BODY [id number] 20:14:00 Test Item Value Reference Range Comments ALBUMIN FLUID (BEAKER) (test cehw=017) 0.4 gm/dL Reference Range: No Normals Assay performance has not been validated for this type of specimen.BASIC METABOLIC [id number] 10:31:00 Test Item Value Reference Range Comments SODIUM (BEAKER) (test 125 meq/L 136-145 vedi=617) POTASSIUM (BEAKER) (test 4.5 meq/L 3.5-5.1 nkmi=630) CHLORIDE (BEAKER) (test 98 meq/L 98-107 oocc=013) CO2 (BEAKER) (test 20 meq/L 22-29 tnwq=540) BLOOD UREA NITROGEN 22 mg/dL 7-21 (BEAKER) (test ukjh=912) CREATININE (BEAKER) (test 1.45 mg/dL 0.57-1.25 jxam=969) GLUCOSE RANDOM (BEAKER) 87 mg/dL 70-105 (test ifie=609) CALCIUM (BEAKER) (test 8.6 mg/dL 8.4-10.2 jzbk=628) EGFR (BEAKER) (test 51 mL/min/1.73 sq m ESTIMATED GFR IS NOT zlgc=7416) ACCURATE CREATININE CLEARANCE IN PREDICTING GLOMERULAR FILTRATION RATE. ESTIMATED GFR IS NOT APPLICABLE FOR DIALYSIS PATIENTS. Specimen slightly ictericHEPATIC FUNCTION [id number] 10:31:00 Test Item Value Reference Range Comments TOTAL PROTEIN (BEAKER) (test jpld=215) 5.8 gm/dL 6.0-8.3 ALBUMIN (BEAKER) (test ydaz=3408) 2.4 g/dL 3.5-5.0 BILIRUBIN TOTAL (BEAKER) (test epxq=755) 4.1 mg/dL 0.2-1.2 BILIRUBIN DIRECT (BEAKER) (test exaw=256) 3.1 mg/dL 0.1-0.5 ALKALINE PHOSPHATASE (BEAKER) (test hpeo=947) 126 U/L 40-150 AST (SGOT) (BEAKER) (test cvsx=797) 28 U/L 5-34 ALT (SGPT) (BEAKER) (test xcnm=297) 13 U/L 6-55 Specimen slightly ictericCBC W/PLT COUNT & AUTO [id number] 10:09 :00 Test Item Value Reference Range Comments WHITE BLOOD CELL COUNT (BEAKER) (test jcfn=811) 5.5 K/ L 3.5-10.5 RED BLOOD CELL COUNT (BEAKER) (test alcj=827) 2.56 M/ L 4.63-6.08 HEMOGLOBIN (BEAKER) (test uwzn=267) 8.1 GM/DL 13.7-17.5 HEMATOCRIT (BEAKER) (test ieak=999) 24.2 % 40.1-51.0 MEAN CORPUSCULAR VOLUME (BEAKER) (test uzbg=540) 94.5 fL 79.0-92.2 MEAN CORPUSCULAR HEMOGLOBIN (BEAKER) (test 31.6 pg 25.7-32.2 zkzl=611) MEAN CORPUSCULAR HEMOGLOBIN CONC (BEAKER) (test 33.5 GM/DL 32.3-36.5 rwgg=545) RED CELL DISTRIBUTION WIDTH (BEAKER) (test 18.6 % 11.6-14.4 rsnf=748) PLATELET COUNT (BEAKER) (test mtmm=531) 86 K/CU MM 150-450 MEAN PLATELET VOLUME (BEAKER) (test cdxm=584) 9.7 fL 9.4-12.4 NUCLEATED RED BLOOD CELLS (BEAKER) (test 0 /100 WBC 0-0 kixm=935) NEUTROPHILS RELATIVE PERCENT (BEAKER) (test 65 % jwam=770) LYMPHOCYTES RELATIVE PERCENT (BEAKER) (test 13 % evip=772) MONOCYTES RELATIVE PERCENT (BEAKER) (test 14 % uqbg=906) EOSINOPHILS RELATIVE PERCENT (BEAKER) (test 6 % rpsn=893) BASOPHILS RELATIVE PERCENT (BEAKER) (test 0 % xegd=029) NEUTROPHILS ABSOLUTE COUNT (BEAKER) (test 3.59 K/ L 1.78-5.38 seuf=947) LYMPHOCYTES ABSOLUTE COUNT (BEAKER) (test 0.73 K/ L 1.32-3.57 gsvp=812) MONOCYTES ABSOLUTE COUNT (BEAKER) (test okfk=057) 0.76 K/ L 0.30-0.82 EOSINOPHILS ABSOLUTE COUNT (BEAKER) (test 0.33 K/ L 0.04-0.54 ylxc=253) BASOPHILS ABSOLUTE COUNT (BEAKER) (test irnc=859) 0.02 K/ L 0.01-0.08 IMMATURE GRANULOCYTES-RELATIVE PERCENT (BEAKER) 1 % 0-1 (test expn=1842) PROTHROMBIN [id number] 07:51:00 Test Item Value Reference Range Comments PROTIME (BEAKER) (test bxjt=848) 23.8 seconds 11.7-14.7 INR (BEAKER) (test kakh=653) 2.1 <=5.9 RECOMMENDED COUMADIN/WARFARIN INR THERAPY RANGESSTANDARD DOSE: 2.0 - 3.0 Includes: PROPHYLAXIS forvenous thrombosis, systemic embolization; TREATMENT for venous thrombosis and/or pulmonary embolus.HIGH RISK: Target INR is 2.5-3.5 for patients with mechanical heart valves.BLOOD [id number] 05:02:00 Test Item Value Reference Range Comments CULTURE (BEAKER) (test erkb=6622) No growth in 5 days BLOOD [id number] 05:02:00 Test Item Value Reference Range Comments CULTURE (BEAKER) (test fxqo=3324) No growth in 5 days BODY FLUID CULTURE + GRAM [id number] 09:05:00 Test Item Value Reference Range Comments CULTURE (BEAKER) (test csqj=2270) No growth GRAM STAIN RESULT (BEAKER) (test No White blood cells seen czfm=6979) GRAM STAIN RESULT (BEAKER) (test No organisms seen djuc=63531) RAPID DRUG SCREEN, [id number] 23:13:00 Test Item Value Reference Range Comments BARBITURATE URINE (BEAKER) (test kvod=691) Negative Negative BENZODIAZEPINE SCREEN URINE (BEAKER) (test Negative Negative dzum=829) COCAINE (METAB.) SCREEN (BEAKER) (test xdtq=2776) Negative Negative METHADONE SCREEN (BEAKER) (test fhbt=7204) Negative Negative OPIATE SCREEN URINE (BEAKER) (test cxwc=898) Negative Negative CANNABINOID SCREEN URINE (BEAKER) (test yesq=709) Negative Negative AMPH/METHAMPH SCREEN (BEAKER) (test lesg=6347) Negative Negative PHENCYCLIDINE SCREEN URINE (BEAKER) (test scza=759) Negative Negative OXYCODONE SCREEN URINE (BEAKER) (test vxcq=3838) Negative Negative DRUG CUTOFF CONC.Cocaine 300 ng/mL Cannabinoid 50 ng/mL Benzodiazepine 200 ng/mLBarbiturate 200 ng/ mLPhencyclidine 25 ng/mLOpiate 300 ng/mLMethadone 300 ng/mLAmphetamine/ 1000 ng/mL MethamphetamineOxycodone 300 ng/mLThis assay provides an unconfirmed qualitative test result for the clinical management of patients in emergency situations. Chain of custody not maintained. Some jkxz-etv-airmkvh medications, as well as adulterants, may cause inaccurate results. Clinical correlation should be applied. A more comprehensive drug screen or confirmation of a detected drug may be performed upon request.MR, ABDOMEN, [id number] 13:52:00FINAL REPORT MRI of the abdomen with [...] MDReport Verified Date/Time: 09/05/2017 13:52:35 Reading Location: [address] BodyReading Room CBC W/PLT COUNT & AUTO [id number] 05:46:00 Test Item Value Reference Range Comments WHITE BLOOD CELL COUNT (BEAKER) (test slyr=799) 4.7 K/ L 3.5-10.5 RED BLOOD CELL COUNT (BEAKER) (test qdwj=101) 2.49 M/ L 4.63-6.08 HEMOGLOBIN (BEAKER) (test llxy=031) 7.9 GM/DL 13.7-17.5 HEMATOCRIT (BEAKER) (test hhdr=475) 22.6 % 40.1-51.0 MEAN CORPUSCULAR VOLUME (BEAKER) (test ccgu=438) 90.8 fL 79.0-92.2 MEAN CORPUSCULAR HEMOGLOBIN (BEAKER) (test 31.7 pg 25.7-32.2 rktv=837) MEAN CORPUSCULAR HEMOGLOBIN CONC (BEAKER) (test 35.0 GM/DL 32.3-36.5 tyiy=966) RED CELL DISTRIBUTION WIDTH (BEAKER) (test 18.8 % 11.6-14.4 tiwr=302) PLATELET COUNT (BEAKER) (test jplj=663) 60 K/CU MM 150-450 MEAN PLATELET VOLUME (BEAKER) (test mwim=172) 9.2 fL 9.4-12.4 NUCLEATED RED BLOOD CELLS (BEAKER) (test 0 /100 WBC 0-0 ioii=057) NEUTROPHILS RELATIVE PERCENT (BEAKER) (test 65 % wwbe=096) LYMPHOCYTES RELATIVE PERCENT (BEAKER) (test 13 % waka=534) MONOCYTES RELATIVE PERCENT (BEAKER) (test 15 % zbxy=596) EOSINOPHILS RELATIVE PERCENT (BEAKER) (test 6 % qaog=252) BASOPHILS RELATIVE PERCENT (BEAKER) (test 0 % zwbn=711) NEUTROPHILS ABSOLUTE COUNT (BEAKER) (test 3.05 K/ L 1.78-5.38 zcip=217) LYMPHOCYTES ABSOLUTE COUNT (BEAKER) (test 0.62 K/ L 1.32-3.57 ccbg=384) MONOCYTES ABSOLUTE COUNT (BEAKER) (test fphl=624) 0.68 K/ L 0.30-0.82 EOSINOPHILS ABSOLUTE COUNT (BEAKER) (test 0.28 K/ L 0.04-0.54 wubs=512) BASOPHILS ABSOLUTE COUNT (BEAKER) (test cdfb=248) 0.02 K/ L 0.01-0.08 IMMATURE GRANULOCYTES-RELATIVE PERCENT (BEAKER) 1 % 0-1 (test irfb=5158) BASIC METABOLIC [id number] 05:44:00 Test Item Value Reference Range Comments SODIUM (BEAKER) (test 127 meq/L 136-145 hzrb=772) POTASSIUM (BEAKER) (test 4.5 meq/L 3.5-5.1 xcju=464) CHLORIDE (BEAKER) (test 101 meq/L 98-107 ucuo=925) CO2 (BEAKER) (test 19 meq/L 22-29 rcew=024) BLOOD UREA NITROGEN 17 mg/dL 7-21 (BEAKER) (test bilb=604) CREATININE (BEAKER) (test 0.91 mg/dL 0.57-1.25 aqec=804) GLUCOSE RANDOM (BEAKER) 107 mg/dL 70-105 (test dmpe=562) CALCIUM (BEAKER) (test 9.4 mg/dL 8.4-10.2 zvbi=370) EGFR (BEAKER) (test 87 mL/min/1.73 sq m ESTIMATED GFR IS NOT qtse=8995) ACCURATE CREATININE CLEARANCE IN PREDICTING GLOMERULAR FILTRATION RATE. ESTIMATED GFR IS NOT APPLICABLE FOR DIALYSIS PATIENTS. Specimen moderately ictericHEPATIC FUNCTION [id number] 05:44:00 Test Item Value Reference Range Comments TOTAL PROTEIN (BEAKER) (test zjcq=657) 5.6 gm/dL 6.0-8.3 ALBUMIN (BEAKER) (test wvlc=4758) 3.3 g/dL 3.5-5.0 BILIRUBIN TOTAL (BEAKER) (test yikj=222) 10.3 mg/dL 0.2-1.2 BILIRUBIN DIRECT (BEAKER) (test ejlo=358) 6.8 mg/dL 0.1-0.5 ALKALINE PHOSPHATASE (BEAKER) (test svsl=248) 103 U/L 40-150 AST (SGOT) (BEAKER) (test ivjq=444) 17 U/L 5-34 ALT (SGPT) (BEAKER) (test nlzp=953) 8 U/L 6-55 Specimen moderately ictericPT/[id number] 05:31:00 Test Item Value Reference Range Comments PROTIME (BEAKER) (test nuqi=123) 25.6 seconds 11.7-14.7 INR (BEAKER) (test njts=479) 2.3 <=5.9 PARTIAL THROMBOPLASTIN TIME (BEAKER) (test 51.6 seconds 22.5-36.0 xwrl=747) RECOMMENDED COUMADIN/WARFARIN INR THERAPY RANGESSTANDARD DOSE: 2.0 - 3.0 Includes: PROPHYLAXIS forvenous thrombosis, systemic embolization; TREATMENT for venous thrombosis and/or pulmonary embolus.HIGH RISK: Target INR is 2.5-3.5 for patients with mechanical heart valves.PROTHROMBIN TIME/[id number] 05:30: 00 Test Item Value Reference Range Comments PROTIME (BEAKER) (test ungl=965) 25.6 seconds 11.7-14.7 INR (BEAKER) (test xjoj=165) 2.3 <=5.9 RECOMMENDED COUMADIN/WARFARIN INR THERAPY RANGESSTANDARD DOSE: 2.0 - 3.0 Includes: PROPHYLAXIS forvenous thrombosis, systemic embolization; TREATMENT for venous thrombosis and/or pulmonary embolus.HIGH RISK: Target INR is 2.5-3.5 for patients with mechanical heart valves.BODY FLUID CELL COUNT WITH [id number] 19:30:00 Test Item Value Reference Range Comments APPEARANCE FLUID (BEAKER) (test rgbr=754) Slightly Hazy Clear COLOR FLUID (BEAKER) (test pmkn=555) Yellow Colorless, Straw RBC FLUID (BEAKER) (test kqfx=427) 100 /cu mm <=1 ADJUSTED WBC FLUID (BEAKER) (test oons=3689) 36 /cu mm <=5 LINING CELLS (BEAKER) (test wuil=6228) 4 /cu mm <=1 NEUTROPHILS FLUID (BEAKER) (test qfaf=8691) 0 % LYMPHS FLUID (BEAKER) (test tnri=971) 20 % MONO/MACROPHAGE FLUID (BEAKER) (test 80 % cpiv=695) EOSINOPHILS FLUID (BEAKER) (test yemn=953) 0 % BASO FLUID (BEAKER) (test etde=822) 0 % CONTAINER BODY FLUID (BEAKER) (test EDTA Tube yect=5389) U/S, [id number] 16:21:00Reason for exam:->ascitesShould this be performed at the bedside?->NoFINAL REPORT PROCEDURE: Ultrasound-guided paracentesis. INDICATION: 52-year-old man with ascites. DESCRIPTION: After obtaining informed written consent, ultrasound scan of the abdomen identified ascites in the right lower quadrant. The overlying skin was prepped and draped in the usual, sterile fashion and local 1% lidocaine anesthesia was administered. A 5 [place]ian catheter was advanced into the peritoneal cavity and 13,200 cc of cloudy yellow fluid was removed. The catheter was removed without immediate complication. Samples were sent for analysis. IMPRESSION:Uncomplicated ultrasound-guided paracentesis with 13,200 cc fluid removed. Signed: Candice Mckeonort Verified Date/Time: 2016 16:21:22 Reading Location: [address] Ultrasound Reading Room [facility] METABOLIC [id number] 11:07:00 Test Item Value Reference Range Comments SODIUM (BEAKER) (test 127 meq/L 136-145 rryr=019) POTASSIUM (BEAKER) (test 4.1 meq/L 3.5-5.1 jwqa=262) CHLORIDE (BEAKER) (test 101 meq/L 98-107 rkdr=351) CO2 (BEAKER) (test 23 meq/L 22-29 pkgo=700) BLOOD UREA NITROGEN 17 mg/dL 7-21 (BEAKER) (test ypcm=131) CREATININE (BEAKER) (test 1.06 mg/dL 0.57-1.25 unbn=756) GLUCOSE RANDOM (BEAKER) 104 mg/dL 70-105 (test toup=381) CALCIUM (BEAKER) (test 8.9 mg/dL 8.4-10.2 qmsa=778) EGFR (BEAKER) (test 73 mL/min/1.73 sq m ESTIMATED GFR IS NOT ubjp=0582) ACCURATE CREATININE CLEARANCE IN PREDICTING GLOMERULAR FILTRATION RATE. ESTIMATED GFR IS NOT APPLICABLE FOR DIALYSIS PATIENTS. Specimen markedly ictericHEPATIC FUNCTION [id number] 11:07:00 Test Item Value Reference Range Comments TOTAL PROTEIN (BEAKER) (test rbsu=537) 5.4 gm/dL 6.0-8.3 ALBUMIN (BEAKER) (test xado=2311) 2.8 g/dL 3.5-5.0 BILIRUBIN TOTAL (BEAKER) (test utft=202) 12.7 mg/dL 0.2-1.2 BILIRUBIN DIRECT (BEAKER) (test kerc=344) 7.8 mg/dL 0.1-0.5 ALKALINE PHOSPHATASE (BEAKER) (test dnsi=310) 90 U/L 40-150 AST (SGOT) (BEAKER) (test wydo=934) 22 U/L 5-34 ALT (SGPT) (BEAKER) (test lhkj=918) 11 U/L 6-55 Specimen markedly ictericPT/[id number] 11:02:00 Test Item Value Reference Range Comments PROTIME (BEAKER) (test thsl=840) 23.4 seconds 11.7-14.7 INR (BEAKER) (test pseb=163) 2.1 <=5.9 PARTIAL THROMBOPLASTIN TIME (BEAKER) (test 48.7 seconds 22.5-36.0 adzt=555) RECOMMENDED COUMADIN/WARFARIN INR THERAPY RANGESSTANDARD DOSE: 2.0 - 3.0 Includes: PROPHYLAXIS forvenous thrombosis, systemic embolization; TREATMENT for venous thrombosis and/or pulmonary embolus.HIGH RISK: Target INR is 2.5-3.5 for patients with mechanical heart valves.PROTHROMBIN TIME/[id number] 11:01: 00 Test Item Value Reference Range Comments PROTIME (BEAKER) (test xvvn=404) 23.4 seconds 11.7-14.7 INR (BEAKER) (test ncyz=810) 2.1 <=5.9 RECOMMENDED COUMADIN/WARFARIN INR THERAPY RANGESSTANDARD DOSE: 2.0 - 3.0 Includes: PROPHYLAXIS forvenous thrombosis, systemic embolization; TREATMENT for venous thrombosis and/or pulmonary embolus.HIGH RISK: Target INR is 2.5-3.5 for patients with mechanical heart valves.CBC W/PLT COUNT & AUTO [id number] 10:56:00 Test Item Value Reference Range Comments WHITE BLOOD CELL COUNT (BEAKER) (test fdzl=405) 4.4 K/ L 3.5-10.5 RED BLOOD CELL COUNT (BEAKER) (test gqzk=674) 2.48 M/ L 4.63-6.08 HEMOGLOBIN (BEAKER) (test otjc=518) 7.8 GM/DL 13.7-17.5 HEMATOCRIT (BEAKER) (test rqnd=024) 22.7 % 40.1-51.0 MEAN CORPUSCULAR VOLUME (BEAKER) (test gdqo=992) 91.5 fL 79.0-92.2 MEAN CORPUSCULAR HEMOGLOBIN (BEAKER) (test 31.5 pg 25.7-32.2 jhwf=860) MEAN CORPUSCULAR HEMOGLOBIN CONC (BEAKER) (test 34.4 GM/DL 32.3-36.5 zupm=139) RED CELL DISTRIBUTION WIDTH (BEAKER) (test 18.6 % 11.6-14.4 xeyd=400) PLATELET COUNT (BEAKER) (test zmkv=228) 60 K/CU MM 150-450 MEAN PLATELET VOLUME (BEAKER) (test zrmk=723) 8.8 fL 9.4-12.4 NUCLEATED RED BLOOD CELLS (BEAKER) (test 0 /100 WBC 0-0 dfqi=170) NEUTROPHILS RELATIVE PERCENT (BEAKER) (test 61 % miij=833) LYMPHOCYTES RELATIVE PERCENT (BEAKER) (test 9 % zixx=140) MONOCYTES RELATIVE PERCENT (BEAKER) (test 21 % gbau=748) EOSINOPHILS RELATIVE PERCENT (BEAKER) (test 8 % ftsv=954) BASOPHILS RELATIVE PERCENT (BEAKER) (test 1 % brln=532) NEUTROPHILS ABSOLUTE COUNT (BEAKER) (test 2.68 K/ L 1.78-5.38 pukk=078) LYMPHOCYTES ABSOLUTE COUNT (BEAKER) (test 0.38 K/ L 1.32-3.57 xtse=266) MONOCYTES ABSOLUTE COUNT (BEAKER) (test oxwu=952) 0.94 K/ L 0.30-0.82 EOSINOPHILS ABSOLUTE COUNT (BEAKER) (test 0.33 K/ L 0.04-0.54 pwbm=669) BASOPHILS ABSOLUTE COUNT (BEAKER) (test apdd=442) 0.02 K/ L 0.01-0.08 IMMATURE GRANULOCYTES-RELATIVE PERCENT (BEAKER) 1 % 0-1 (test zvwv=8777) URINALYSIS W/ [id number] 06:18:00 Test Item Value Reference Range Comments COLOR (BEAKER) (test crqx=680) Dark Yellow CLARITY (BEAKER) (test ziwi=811) Clear SPECIFIC GRAVITY UA (BEAKER) (test olgk=750) 1.008 1.001-1.035 PH UA (BEAKER) (test qgql=236) 6.0 5.0-8.0 PROTEIN UA (BEAKER) (test xvgp=034) Negative Negative GLUCOSE UA (BEAKER) (test dheo=539) Negative Negative KETONES UA (BEAKER) (test elwx=540) Negative Negative BILIRUBIN UA (BEAKER) (test gnuo=105) Positive Negative BLOOD UA (BEAKER) (test ijqw=874) Moderate Negative NITRITE UA (BEAKER) (test bgat=584) Negative Negative LEUKOCYTE ESTERASE UA (BEAKER) (test ciop=737) Negative Negative UROBILINOGEN UA (BEAKER) (test yupk=545) 0.2 mg/dL 0.2-1.0 RBC UA (BEAKER) (test fqea=804) 80 /HPF WBC UA (BEAKER) (test igzw=338) 10 /HPF HYALINE CASTS (BEAKER) (test ikns=625) 5 /LPF AMORPHOUS CRYSTALS (BEAKER) (test bvom=9957) Rare SOURCE(BEAKER) (test fvzv=4344) CBC W/PLT COUNT & AUTO [id number] 00:00:00 Test Item Value Reference Range Comments WHITE BLOOD CELL COUNT (BEAKER) (test menw=876) 3.7 K/ L 3.5-10.5 RED BLOOD CELL COUNT (BEAKER) (test irrb=783) 2.20 M/ L 4.63-6.08 HEMOGLOBIN (BEAKER) (test xxtn=661) 7.0 GM/DL 13.7-17.5 HEMATOCRIT (BEAKER) (test zyoa=622) 20.2 % 40.1-51.0 MEAN CORPUSCULAR VOLUME (BEAKER) (test yaqy=178) 91.8 fL 79.0-92.2 MEAN CORPUSCULAR HEMOGLOBIN (BEAKER) (test 31.8 pg 25.7-32.2 mezv=643) MEAN CORPUSCULAR HEMOGLOBIN CONC (BEAKER) (test 34.7 GM/DL 32.3-36.5 sbjg=065) RED CELL DISTRIBUTION WIDTH (BEAKER) (test 19.3 % 11.6-14.4 fpms=714) PLATELET COUNT (BEAKER) (test ugyx=115) 63 K/CU MM 150-450 MEAN PLATELET VOLUME (BEAKER) (test fvma=169) 9.1 fL 9.4-12.4 NUCLEATED RED BLOOD CELLS (BEAKER) (test 0 /100 WBC 0-0 sibp=242) NEUTROPHILS RELATIVE PERCENT (BEAKER) (test 62 % qtdk=652) LYMPHOCYTES RELATIVE PERCENT (BEAKER) (test 11 % fnny=756) MONOCYTES RELATIVE PERCENT (BEAKER) (test 19 % gtgs=755) EOSINOPHILS RELATIVE PERCENT (BEAKER) (test 7 % wesj=182) BASOPHILS RELATIVE PERCENT (BEAKER) (test 1 % hmqi=072) NEUTROPHILS ABSOLUTE COUNT (BEAKER) (test 2.29 K/ L 1.78-5.38 szti=000) LYMPHOCYTES ABSOLUTE COUNT (BEAKER) (test 0.39 K/ L 1.32-3.57 yioq=004) MONOCYTES ABSOLUTE COUNT (BEAKER) (test izfb=968) 0.71 K/ L 0.30-0.82 EOSINOPHILS ABSOLUTE COUNT (BEAKER) (test 0.27 K/ L 0.04-0.54 vzmx=989) BASOPHILS ABSOLUTE COUNT (BEAKER) (test iadk=374) 0.02 K/ L 0.01-0.08 IMMATURE GRANULOCYTES-RELATIVE PERCENT (BEAKER) 1 % 0-1 (test bbjz=9390) PROTHROMBIN TIME/[id number] 22:52:00 Test Item Value Reference Range Comments PROTIME (BEAKER) (test umoc=497) 25.6 seconds 11.7-14.7 INR (BEAKER) (test emdk=426) 2.3 <=5.9 RECOMMENDED COUMADIN/WARFARIN INR THERAPY RANGESSTANDARD DOSE: 2.0 - 3.0 Includes: PROPHYLAXIS forvenous thrombosis, systemic embolization; TREATMENT for venous thrombosis and/or pulmonary embolus.HIGH RISK: Target INR is 2.5-3.5 for patients with mechanical heart valves.[id number] 22:52:00 Test Item Value Reference Range Comments MAGNESIUM (BEAKER) (test hlzl=804) 1.3 mg/dL 1.6-2.6 BASIC METABOLIC [id number] 22:52:00 Test Item Value Reference Range Comments SODIUM (BEAKER) (test 124 meq/L 136-145 snul=792) POTASSIUM (BEAKER) (test 4.1 meq/L 3.5-5.1 qhvv=679) CHLORIDE (BEAKER) (test 99 meq/L 98-107 vboj=532) CO2 (BEAKER) (test 18 meq/L 22-29 jqbm=678) BLOOD UREA NITROGEN 16 mg/dL 7-21 (BEAKER) (test hjmh=226) CREATININE (BEAKER) (test 0.97 mg/dL 0.57-1.25 oocx=852) GLUCOSE RANDOM (BEAKER) 99 mg/dL 70-105 (test dpbu=965) CALCIUM (BEAKER) (test 8.7 mg/dL 8.4-10.2 vgwi=682) EGFR (BEAKER) (test 81 mL/min/1.73 sq m ESTIMATED GFR IS NOT lwra=3346) ACCURATE CREATININE CLEARANCE IN PREDICTING GLOMERULAR FILTRATION RATE. ESTIMATED GFR IS NOT APPLICABLE FOR DIALYSIS PATIENTS. Specimen markedly ictericHEPATIC FUNCTION [id number] 22:52:00 Test Item Value Reference Range Comments TOTAL PROTEIN (BEAKER) (test esjx=664) 5.3 gm/dL 6.0-8.3 ALBUMIN (BEAKER) (test yifx=7358) 2.8 g/dL 3.5-5.0 BILIRUBIN TOTAL (BEAKER) (test ulir=681) 12.7 mg/dL 0.2-1.2 BILIRUBIN DIRECT (BEAKER) (test fwzl=744) 7.6 mg/dL 0.1-0.5 ALKALINE PHOSPHATASE (BEAKER) (test acnw=632) 93 U/L 40-150 AST (SGOT) (BEAKER) (test djvf=541) 21 U/L 5-34 ALT (SGPT) (BEAKER) (test qyex=822) 9 U/L 6-55 Specimen markedly ictericALPHA FETOPROTEIN (AFP), TUMOR [id number] 16:39: 00 Test Item Value Reference Range Comments ALPHA-FETOPROTEIN (BEAKER) (test qfan=8199) 2.5 ng/mL <10.0 BASIC METABOLIC [id number] 15:53:00 Test Item Value Reference Range Comments SODIUM (BEAKER) (test 126 meq/L 136-145 clve=786) POTASSIUM (BEAKER) (test 5.1 meq/L 3.5-5.1 ewit=740) CHLORIDE (BEAKER) (test 101 meq/L 98-107 hsof=843) CO2 (BEAKER) (test 19 meq/L 22-29 ckkh=445) BLOOD UREA NITROGEN 14 mg/dL 7-21 (BEAKER) (test nrtz=395) CREATININE (BEAKER) (test 1.01 mg/dL 0.57-1.25 trea=267) GLUCOSE RANDOM (BEAKER) 104 mg/dL 70-105 (test cpng=934) CALCIUM (BEAKER) (test 9.0 mg/dL 8.4-10.2 caue=253) EGFR (BEAKER) (test 78 mL/min/1.73 sq m ESTIMATED GFR IS NOT bgin=7480) ACCURATE CREATININE CLEARANCE IN PREDICTING GLOMERULAR FILTRATION RATE. ESTIMATED GFR IS NOT APPLICABLE FOR DIALYSIS PATIENTS. Specimen moderately ictericHEPATIC FUNCTION [id number] 15:53:00 Test Item Value Reference Range Comments TOTAL PROTEIN (BEAKER) (test gjsq=637) 6.1 gm/dL 6.0-8.3 ALBUMIN (BEAKER) (test vpjp=7384) 2.6 g/dL 3.5-5.0 BILIRUBIN TOTAL (BEAKER) (test nbyy=554) 10.4 mg/dL 0.2-1.2 BILIRUBIN DIRECT (BEAKER) (test lsca=071) 7.5 mg/dL 0.1-0.5 ALKALINE PHOSPHATASE (BEAKER) (test litj=442) 124 U/L 40-150 AST (SGOT) (BEAKER) (test gpck=209) 29 U/L 5-34 ALT (SGPT) (BEAKER) (test yufl=444) 12 U/L 6-55 Specimen moderately ictericGAMMA GLUTAMYL TRANSFERASE (GGT)[id number] 15:53:00 Test Item Value Reference Range Comments GAMMA GLUTAMYL TRANSFERASE (BEAKER) (test yudz=196) 17 U/L 9-64 Specimen moderately ictericPROTHROMBIN [id number] 15:40:00 Test Item Value Reference Range Comments PROTIME (BEAKER) (test ctnf=859) 22.6 seconds 11.7-14.7 INR (BEAKER) (test fpcb=171) 2.0 <=5.9 RECOMMENDED COUMADIN/WARFARIN INR THERAPY RANGESSTANDARD DOSE: 2.0 - 3.0 Includes: PROPHYLAXIS forvenous thrombosis, systemic embolization; TREATMENT for venous thrombosis and/or pulmonary embolus.HIGH RISK: Target INR is 2.5-3.5 for patients with mechanical heart valves.CBC W/PLT COUNT & AUTO [id number] 15:38:00 Test Item Value Reference Range Comments WHITE BLOOD CELL COUNT (BEAKER) (test tptq=899) 7.3 K/ L 3.5-10.5 RED BLOOD CELL COUNT (BEAKER) (test cyui=298) 2.78 M/ L 4.63-6.08 HEMOGLOBIN (BEAKER) (test hgzr=680) 9.1 GM/DL 13.7-17.5 HEMATOCRIT (BEAKER) (test wpbp=285) 27.3 % 40.1-51.0 MEAN CORPUSCULAR VOLUME (BEAKER) (test yycm=438) 98.2 fL 79.0-92.2 MEAN CORPUSCULAR HEMOGLOBIN (BEAKER) (test 32.7 pg 25.7-32.2 zcxc=704) MEAN CORPUSCULAR HEMOGLOBIN CONC (BEAKER) (test 33.3 GM/DL 32.3-36.5 hixq=449) RED CELL DISTRIBUTION WIDTH (BEAKER) (test 16.4 % 11.6-14.4 aklr=061) PLATELET COUNT (BEAKER) (test jnff=015) 71 K/CU MM 150-450 MEAN PLATELET VOLUME (BEAKER) (test vkyj=819) 9.1 fL 9.4-12.4 NUCLEATED RED BLOOD CELLS (BEAKER) (test 0 /100 WBC 0-0 ytgy=324) NEUTROPHILS RELATIVE PERCENT (BEAKER) (test 71 % gdgo=663) LYMPHOCYTES RELATIVE PERCENT (BEAKER) (test 8 % ykbb=706) MONOCYTES RELATIVE PERCENT (BEAKER) (test 15 % jsut=450) EOSINOPHILS RELATIVE PERCENT (BEAKER) (test 5 % jmcq=901) BASOPHILS RELATIVE PERCENT (BEAKER) (test 0 % loem=238) NEUTROPHILS ABSOLUTE COUNT (BEAKER) (test 5.13 K/ L 1.78-5.38 hlrc=310) LYMPHOCYTES ABSOLUTE COUNT (BEAKER) (test 0.59 K/ L 1.32-3.57 nofj=697) MONOCYTES ABSOLUTE COUNT (BEAKER) (test bwon=897) 1.06 K/ L 0.30-0.82 EOSINOPHILS ABSOLUTE COUNT (BEAKER) (test 0.33 K/ L 0.04-0.54 yhoi=283) BASOPHILS ABSOLUTE COUNT (BEAKER) (test uchq=245) 0.03 K/ L 0.01-0.08 IMMATURE GRANULOCYTES-RELATIVE PERCENT (BEAKER) 2 % 0-1 (test abtk=3930) FUNGUS CULTURE + [id number] 07:22:00 Test Item Value Reference Range Comments CULTURE (BEAKER) (test No fungus isolated in 28 days dovi=0988) FUNGUS SMEAR (BEAKER) (test No fungi seen mcmh=7702) HISTOPLASMA ANTIGEN, [id number] 08:01:00 Test Item Value Reference Range Comments SCAN RESULT (test cwyh=[id number]) TISSUE [id number] 10:58:00 Test Item Value Reference Range Comments LAB AP CPT CODE (BEAKER) (test cpuw=2225) [id number] BLOOD [id number] 16:15:00 Test Item Value Reference Range Comments CULTURE (BEAKER) (test gsiq=9221) No growth in 5 days BLOOD [id number] 16:15:00 Test Item Value Reference Range Comments CULTURE (BEAKER) (test oyvq=9017) No growth in 5 days [id number] 06:54:00 Test Item Value Reference Range Comments PHOSPHORUS (BEAKER) (test hitw=896) 3.3 mg/dL 2.3-4.7 [id number] 06:54:00 Test Item Value Reference Range Comments MAGNESIUM (BEAKER) (test fkyp=108) 1.2 mg/dL 1.6-2.6 BASIC METABOLIC [id number] 06:54:00 Test Item Value Reference Range Comments SODIUM (BEAKER) (test 133 meq/L 136-145 akwn=046) POTASSIUM (BEAKER) (test 3.6 meq/L 3.5-5.1 viks=411) CHLORIDE (BEAKER) (test 108 meq/L 98-107 lebm=347) CO2 (BEAKER) (test 17 meq/L 22-29 eqov=104) BLOOD UREA NITROGEN 13 mg/dL 7-21 (BEAKER) (test mutj=431) CREATININE (BEAKER) (test 1.16 mg/dL 0.57-1.25 bwpb=478) GLUCOSE RANDOM (BEAKER) 82 mg/dL 70-105 (test hiug=081) CALCIUM (BEAKER) (test 8.0 mg/dL 8.4-10.2 xjof=333) EGFR (BEAKER) (test 66 mL/min/1.73 sq m ESTIMATED GFR IS NOT xjun=1772) ACCURATE CREATININE CLEARANCE IN PREDICTING GLOMERULAR FILTRATION RATE. ESTIMATED GFR IS NOT APPLICABLE FOR DIALYSIS PATIENTS. Specimen moderately ictericHEPATIC FUNCTION [id number] 06:54:00 Test Item Value Reference Range Comments TOTAL PROTEIN (BEAKER) (test fgei=561) 5.7 gm/dL 6.0-8.3 ALBUMIN (BEAKER) (test tdgq=0322) 3.1 g/dL 3.5-5.0 BILIRUBIN TOTAL (BEAKER) (test vhov=338) 5.2 mg/dL 0.2-1.2 BILIRUBIN DIRECT (BEAKER) (test ukxc=495) 2.6 mg/dL 0.1-0.5 ALKALINE PHOSPHATASE (BEAKER) (test htoy=966) 55 U/L 40-150 AST (SGOT) (BEAKER) (test rzsx=351) 32 U/L 5-34 ALT (SGPT) (BEAKER) (test mkoi=516) 9 U/L 6-55 Specimen moderately ictericCALCIUM, [id number] 06:30:00 Test Item Value Reference Range Comments CALCIUM IONIZED (BEAKER) (test hqhi=543) 1.00 mmol/L 1.12-1.27 PH, BLOOD (BEAKER) (test fmwo=0366) 7.52 CBC W/PLT COUNT & AUTO [id number] 06:17:00 Test Item Value Reference Range Comments WHITE BLOOD CELL COUNT (BEAKER) (test srfj=371) 4.7 K/ L 4.0-10.0 RED BLOOD CELL COUNT (BEAKER) (test orto=093) 2.05 M/ L 4.20-5.80 HEMOGLOBIN (BEAKER) (test gsbh=136) 7.1 GM/DL 13.0-16.8 HEMATOCRIT (BEAKER) (test jfgn=287) 21.1 % 40.0-50.0 MEAN CORPUSCULAR VOLUME (BEAKER) (test umkj=418) 103.0 fL 82.0-98.0 MEAN CORPUSCULAR HEMOGLOBIN (BEAKER) (test 34.8 pg 27.0-33.0 cwic=872) MEAN CORPUSCULAR HEMOGLOBIN CONC (BEAKER) (test 33.8 GM/DL 32.0-36.0 hcny=188) RED CELL DISTRIBUTION WIDTH (BEAKER) (test 13.9 % 10.3-14.2 iovw=173) PLATELET COUNT (BEAKER) (test yajc=263) 71 K/CU MM 150-430 MEAN PLATELET VOLUME (BEAKER) (test rrni=122) 6.6 fL 6.5-10.5 NUCLEATED RED BLOOD CELLS (BEAKER) (test 0 /100 WBC 0-0 edcr=837) NEUTROPHILS RELATIVE PERCENT (BEAKER) (test 68 % yfme=621) LYMPHOCYTES RELATIVE PERCENT (BEAKER) (test 16 % xwxj=264) MONOCYTES RELATIVE PERCENT (BEAKER) (test 12 % xyxp=520) EOSINOPHILS RELATIVE PERCENT (BEAKER) (test 4 % auhw=507) BASOPHILS RELATIVE PERCENT (BEAKER) (test 1 % fbdr=394) NEUTROPHILS ABSOLUTE COUNT (BEAKER) (test 3.21 K/ L 1.80-8.00 meoj=712) LYMPHOCYTES ABSOLUTE COUNT (BEAKER) (test 0.75 K/ L 1.48-4.50 dwrr=574) MONOCYTES ABSOLUTE COUNT (BEAKER) (test yegp=690) 0.57 K/ L 0.00-1.30 EOSINOPHILS ABSOLUTE COUNT (BEAKER) (test 0.19 K/ L 0.00-0.50 rpim=424) BASOPHILS ABSOLUTE COUNT (BEAKER) (test olcc=152) 0.03 K/ L 0.00-0.20 0.00PROTHROMBIN [id number] 05:56:00 Test Item Value Reference Range Comments PROTIME (BEAKER) (test dvuu=631) 26.4 seconds 11.7-14.7 INR (BEAKER) (test sfda=620) 2.4 <=5.9 RECOMMENDED COUMADIN/WARFARIN INR THERAPY RANGESSTANDARD DOSE: 2.0 - 3.0 Includes: PROPHYLAXIS forvenous thrombosis, systemic embolization; TREATMENT for venous thrombosis and/or pulmonary embolus.HIGH RISK: Target INR is 2.5-3.5 for patients with mechanical heart valves.BASIC METABOLIC [id number] 04:44: 00 Test Item Value Reference Range Comments SODIUM (BEAKER) (test 134 meq/L 136-145 xtue=301) POTASSIUM (BEAKER) (test 3.6 meq/L 3.5-5.1 fvbi=474) CHLORIDE (BEAKER) (test 108 meq/L 98-107 guxe=951) CO2 (BEAKER) (test 19 meq/L 22-29 seyj=580) BLOOD UREA NITROGEN 12 mg/dL 7-21 (BEAKER) (test pzki=123) CREATININE (BEAKER) (test 1.32 mg/dL 0.57-1.25 gbbs=259) GLUCOSE RANDOM (BEAKER) 82 mg/dL 70-105 (test zfiu=441) CALCIUM (BEAKER) (test 7.9 mg/dL 8.4-10.2 gnhm=323) EGFR (BEAKER) (test 57 mL/min/1.73 sq m ESTIMATED GFR IS NOT bloq=7833) ACCURATE CREATININE CLEARANCE IN PREDICTING GLOMERULAR FILTRATION RATE. ESTIMATED GFR IS NOT APPLICABLE FOR DIALYSIS PATIENTS. Specimen moderately ictericHEPATIC FUNCTION [id number] 04:42:00 Test Item Value Reference Range Comments TOTAL PROTEIN (BEAKER) (test ubhy=483) 5.8 gm/dL 6.0-8.3 ALBUMIN (BEAKER) (test fimo=1610) 3.1 g/dL 3.5-5.0 BILIRUBIN TOTAL (BEAKER) (test jhlu=432) 5.1 mg/dL 0.2-1.2 BILIRUBIN DIRECT (BEAKER) (test xcre=567) 2.7 mg/dL 0.1-0.5 ALKALINE PHOSPHATASE (BEAKER) (test xkpn=859) 51 U/L 40-150 AST (SGOT) (BEAKER) (test xmuv=478) 27 U/L 5-34 ALT (SGPT) (BEAKER) (test oobe=680) 7 U/L 6-55 Specimen moderately ictericCBC W/PLT COUNT & AUTO [id number] 04: 35:00 Test Item Value Reference Range Comments WHITE BLOOD CELL COUNT (BEAKER) (test pwnm=412) 4.6 K/ L 4.0-10.0 RED BLOOD CELL COUNT (BEAKER) (test wjvv=739) 2.06 M/ L 4.20-5.80 HEMOGLOBIN (BEAKER) (test sloj=038) 7.2 GM/DL 13.0-16.8 HEMATOCRIT (BEAKER) (test mejn=905) 21.5 % 40.0-50.0 MEAN CORPUSCULAR VOLUME (BEAKER) (test pymm=761) 104.0 fL 82.0-98.0 MEAN CORPUSCULAR HEMOGLOBIN (BEAKER) (test 35.0 pg 27.0-33.0 xbdo=094) MEAN CORPUSCULAR HEMOGLOBIN CONC (BEAKER) (test 33.6 GM/DL 32.0-36.0 czdo=433) RED CELL DISTRIBUTION WIDTH (BEAKER) (test 13.4 % 10.3-14.2 zgil=526) PLATELET COUNT (BEAKER) (test qxrw=310) 76 K/CU MM 150-430 MEAN PLATELET VOLUME (BEAKER) (test ghfr=847) 6.5 fL 6.5-10.5 NUCLEATED RED BLOOD CELLS (BEAKER) (test 0 /100 WBC 0-0 yugq=382) NEUTROPHILS RELATIVE PERCENT (BEAKER) (test 64 % npez=523) LYMPHOCYTES RELATIVE PERCENT (BEAKER) (test 16 % qxsv=096) MONOCYTES RELATIVE PERCENT (BEAKER) (test 16 % sctt=653) EOSINOPHILS RELATIVE PERCENT (BEAKER) (test 4 % jqqs=461) BASOPHILS RELATIVE PERCENT (BEAKER) (test 1 % hzyn=146) NEUTROPHILS ABSOLUTE COUNT (BEAKER) (test 2.89 K/ L 1.80-8.00 ldag=986) LYMPHOCYTES ABSOLUTE COUNT (BEAKER) (test 0.72 K/ L 1.48-4.50 ppvv=281) MONOCYTES ABSOLUTE COUNT (BEAKER) (test qqzd=899) 0.71 K/ L 0.00-1.30 EOSINOPHILS ABSOLUTE COUNT (BEAKER) (test 0.20 K/ L 0.00-0.50 nett=210) BASOPHILS ABSOLUTE COUNT (BEAKER) (test crko=600) 0.03 K/ L 0.00-0.20 0.00PROTHROMBIN [id number] 04:33:00 Test Item Value Reference Range Comments PROTIME (BEAKER) (test bagh=401) 30.2 seconds 11.7-14.7 INR (BEAKER) (test misi=974) 2.9 <=5.9 RECOMMENDED COUMADIN/WARFARIN INR THERAPY RANGESSTANDARD DOSE: 2.0 - 3.0 Includes: PROPHYLAXIS forvenous thrombosis, systemic embolization; TREATMENT for venous thrombosis and/or pulmonary embolus.HIGH RISK: Target INR is 2.5-3.5 for patients with mechanical heart valves.VANCOMYCIN LEVEL, [id number] 17: 04:00 Test Item Value Reference Range Comments VANCOMYCIN TROUGH (BEAKER) (test lcsb=372) 12.2 ug/mL 10.0-20.0 URINE [id number] 14:25:00 Test Item Value Reference Range Comments CULTURE (BEAKER) (test yaxv=6078) No growth TSH/FREE T4 IF [id number] 14:22:00 Test Item Value Reference Range Comments THYROID STIMULATING HORMONE (BEAKER) (test 3.53 uIU/mL 0.35-4.94 ojhf=671) URINE [id number] 11:43:00 Test Item Value Reference Range Comments CULTURE (BEAKER) (test boiz=3151) No growth CBC W/PLT COUNT & AUTO [id number] 07:55:00 Test Item Value Reference Range Comments WHITE BLOOD CELL COUNT (BEAKER) (test zcwk=161) 4.5 K/ L 4.0-10.0 RED BLOOD CELL COUNT (BEAKER) (test ywzd=698) 2.06 M/ L 4.20-5.80 HEMOGLOBIN (BEAKER) (test rgfh=335) 7.1 GM/DL 13.0-16.8 HEMATOCRIT (BEAKER) (test vtru=350) 21.5 % 40.0-50.0 MEAN CORPUSCULAR VOLUME (BEAKER) (test lajv=539) 104.0 fL 82.0-98.0 MEAN CORPUSCULAR HEMOGLOBIN (BEAKER) (test 34.5 pg 27.0-33.0 klpp=832) MEAN CORPUSCULAR HEMOGLOBIN CONC (BEAKER) (test 33.1 GM/DL 32.0-36.0 wvyh=789) RED CELL DISTRIBUTION WIDTH (BEAKER) (test 13.4 % 10.3-14.2 rjqp=872) PLATELET COUNT (BEAKER) (test gyjd=275) 79 K/CU MM 150-430 MEAN PLATELET VOLUME (BEAKER) (test vaul=934) 6.8 fL 6.5-10.5 NUCLEATED RED BLOOD CELLS (BEAKER) (test 0 /100 WBC 0-0 ykhr=175) NEUTROPHILS RELATIVE PERCENT (BEAKER) (test 64 % rztw=488) LYMPHOCYTES RELATIVE PERCENT (BEAKER) (test 16 % jred=068) MONOCYTES RELATIVE PERCENT (BEAKER) (test 15 % kzzo=960) EOSINOPHILS RELATIVE PERCENT (BEAKER) (test 5 % rtql=354) BASOPHILS RELATIVE PERCENT (BEAKER) (test 0 % ufzk=989) NEUTROPHILS ABSOLUTE COUNT (BEAKER) (test 2.88 K/ L 1.80-8.00 sgda=611) LYMPHOCYTES ABSOLUTE COUNT (BEAKER) (test 0.73 K/ L 1.48-4.50 dhuq=238) MONOCYTES ABSOLUTE COUNT (BEAKER) (test yimp=320) 0.68 K/ L 0.00-1.30 EOSINOPHILS ABSOLUTE COUNT (BEAKER) (test 0.23 K/ L 0.00-0.50 vyup=998) BASOPHILS ABSOLUTE COUNT (BEAKER) (test ovgq=327) 0.02 K/ L 0.00-0.20 0.00BASIC METABOLIC [id number] 05:58:00 Test Item Value Reference Range Comments SODIUM (BEAKER) (test 137 meq/L 136-145 tivg=328) POTASSIUM (BEAKER) (test 3.7 meq/L 3.5-5.1 udts=913) CHLORIDE (BEAKER) (test 110 meq/L 98-107 olff=208) CO2 (BEAKER) (test 19 meq/L 22-29 dhlx=132) BLOOD UREA NITROGEN 12 mg/dL 7-21 (BEAKER) (test hned=804) CREATININE (BEAKER) (test 1.29 mg/dL 0.57-1.25 buoj=644) GLUCOSE RANDOM (BEAKER) 80 mg/dL 70-105 (test ildh=516) CALCIUM (BEAKER) (test 8.1 mg/dL 8.4-10.2 kiuc=973) EGFR (BEAKER) (test 59 mL/min/1.73 sq m ESTIMATED GFR IS NOT tmxp=3414) ACCURATE CREATININE CLEARANCE IN PREDICTING GLOMERULAR FILTRATION RATE. ESTIMATED GFR IS NOT APPLICABLE FOR DIALYSIS PATIENTS. Specimen moderately ictericHEPATIC FUNCTION [id number] 05:58:00 Test Item Value Reference Range Comments TOTAL PROTEIN (BEAKER) (test xghc=096) 5.9 gm/dL 6.0-8.3 ALBUMIN (BEAKER) (test lbar=0335) 3.4 g/dL 3.5-5.0 BILIRUBIN TOTAL (BEAKER) (test udub=104) 5.6 mg/dL 0.2-1.2 BILIRUBIN DIRECT (BEAKER) (test hmil=225) 2.6 mg/dL 0.1-0.5 ALKALINE PHOSPHATASE (BEAKER) (test otca=331) 50 U/L 40-150 AST (SGOT) (BEAKER) (test cnnn=639) 30 U/L 5-34 ALT (SGPT) (BEAKER) (test knwl=620) 9 U/L 6-55 Specimen moderately ictericPROTHROMBIN [id number] 05:31:00 Test Item Value Reference Range Comments PROTIME (BEAKER) (test nrca=070) 29.0 seconds 11.7-14.7 INR (BEAKER) (test zree=982) 2.7 <=5.9 RECOMMENDED COUMADIN/WARFARIN INR THERAPY RANGESSTANDARD DOSE: 2.0 - 3.0 Includes: PROPHYLAXIS forvenous thrombosis, systemic embolization; TREATMENT for venous thrombosis and/or pulmonary embolus.HIGH RISK: Target INR is 2.5-3.5 for patients with mechanical heart valves.ANAEROBIC [id number] 05:15:00 Test Item Value Reference Range Comments CULTURE (BEAKER) (test sxev=9979) No anaerobes isolated BLOOD [id number] 00:00:00 Test Item Value Reference Range Comments CULTURE (BEAKER) (test zvdh=0985) No growth in 5 days BLOOD [id number] 00:00:00 Test Item Value Reference Range Comments CULTURE (BEAKER) (test djlt=4186) No growth in 5 days URINALYSIS W/ REFLEX URINE [id number] 08:28:00 Test Item Value Reference Range Comments COLOR (BEAKER) (test vgax=114) Yellow CLARITY (BEAKER) (test oqmq=218) Clear SPECIFIC GRAVITY UA (BEAKER) (test peng=885) 1.006 1.001-1.035 PH UA (BEAKER) (test xhah=400) 6.5 5.0-8.0 PROTEIN UA (BEAKER) (test djat=325) Negative Negative GLUCOSE UA (BEAKER) (test ikiq=690) Negative Negative KETONES UA (BEAKER) (test xvua=136) Negative Negative BILIRUBIN UA (BEAKER) (test xfqi=796) Negative Negative BLOOD UA (BEAKER) (test jynm=336) Negative Negative NITRITE UA (BEAKER) (test lsdv=266) Negative Negative LEUKOCYTE ESTERASE UA (BEAKER) (test takw=353) Small Negative UROBILINOGEN UA (BEAKER) (test raky=256) 0.2 mg/dL 0.2-1.0 RBC UA (BEAKER) (test txqp=414) 1 /HPF WBC UA (BEAKER) (test caxe=153) 6 /HPF BACTERIA (BEAKER) (test pxvc=230) Rare SOURCE(BEAKER) (test okpk=9669) CBC W/PLT COUNT & AUTO [id number] 07:21:00 Test Item Value Reference Range Comments WHITE BLOOD CELL COUNT (BEAKER) (test qjgs=756) 5.9 K/ L 4.0-10.0 RED BLOOD CELL COUNT (BEAKER) (test ebwq=329) 2.12 M/ L 4.20-5.80 HEMOGLOBIN (BEAKER) (test ngbu=741) 7.3 GM/DL 13.0-16.8 HEMATOCRIT (BEAKER) (test sckn=494) 22.2 % 40.0-50.0 MEAN CORPUSCULAR VOLUME (BEAKER) (test pmvi=593) 105.0 fL 82.0-98.0 MEAN CORPUSCULAR HEMOGLOBIN (BEAKER) (test 34.2 pg 27.0-33.0 djli=835) MEAN CORPUSCULAR HEMOGLOBIN CONC (BEAKER) (test 32.7 GM/DL 32.0-36.0 fsyk=464) RED CELL DISTRIBUTION WIDTH (BEAKER) (test 13.1 % 10.3-14.2 hqqw=411) PLATELET COUNT (BEAKER) (test yxhz=197) 80 K/CU MM 150-430 MEAN PLATELET VOLUME (BEAKER) (test zrhx=177) 6.5 fL 6.5-10.5 NUCLEATED RED BLOOD CELLS (BEAKER) (test 0 /100 WBC 0-0 hiag=538) NEUTROPHILS RELATIVE PERCENT (BEAKER) (test 67 % ipyk=803) LYMPHOCYTES RELATIVE PERCENT (BEAKER) (test 14 % pafk=171) MONOCYTES RELATIVE PERCENT (BEAKER) (test 14 % legs=778) EOSINOPHILS RELATIVE PERCENT (BEAKER) (test 4 % gghj=999) BASOPHILS RELATIVE PERCENT (BEAKER) (test 0 % vjtb=068) NEUTROPHILS ABSOLUTE COUNT (BEAKER) (test 3.97 K/ L 1.80-8.00 gauu=046) LYMPHOCYTES ABSOLUTE COUNT (BEAKER) (test 0.85 K/ L 1.48-4.50 towi=945) MONOCYTES ABSOLUTE COUNT (BEAKER) (test qyew=327) 0.81 K/ L 0.00-1.30 EOSINOPHILS ABSOLUTE COUNT (BEAKER) (test 0.25 K/ L 0.00-0.50 glaj=151) BASOPHILS ABSOLUTE COUNT (BEAKER) (test hfvs=539) 0.03 K/ L 0.00-0.20 [id number] 06:35:00 Test Item Value Reference Range Comments PHOSPHORUS (BEAKER) (test uqfu=765) 3.5 mg/dL 2.3-4.7 [id number] 06:35:00 Test Item Value Reference Range Comments MAGNESIUM (BEAKER) (test ikzz=553) 1.7 mg/dL 1.6-2.6 BASIC METABOLIC [id number] 06:35:00 Test Item Value Reference Range Comments SODIUM (BEAKER) (test 137 meq/L 136-145 xpjo=806) POTASSIUM (BEAKER) (test 4.0 meq/L 3.5-5.1 bion=867) CHLORIDE (BEAKER) (test 109 meq/L 98-107 xurq=126) CO2 (BEAKER) (test 20 meq/L 22-29 lyuu=774) BLOOD UREA NITROGEN 13 mg/dL 7-21 (BEAKER) (test btsd=226) CREATININE (BEAKER) (test 1.56 mg/dL 0.57-1.25 udcx=032) GLUCOSE RANDOM (BEAKER) 85 mg/dL 70-105 (test kkcz=684) CALCIUM (BEAKER) (test 8.4 mg/dL 8.4-10.2 xgtn=295) EGFR (BEAKER) (test 47 mL/min/1.73 sq m ESTIMATED GFR IS NOT nghs=9085) ACCURATE CREATININE CLEARANCE IN PREDICTING GLOMERULAR FILTRATION RATE. ESTIMATED GFR IS NOT APPLICABLE FOR DIALYSIS PATIENTS. Specimen moderately ictericHEPATIC FUNCTION [id number] 06:35:00 Test Item Value Reference Range Comments TOTAL PROTEIN (BEAKER) (test sqmd=830) 6.5 gm/dL 6.0-8.3 ALBUMIN (BEAKER) (test rpei=5260) 3.8 g/dL 3.5-5.0 BILIRUBIN TOTAL (BEAKER) (test cset=356) 6.1 mg/dL 0.2-1.2 BILIRUBIN DIRECT (BEAKER) (test fshe=702) 2.9 mg/dL 0.1-0.5 ALKALINE PHOSPHATASE (BEAKER) (test wwgg=195) 54 U/L 40-150 AST (SGOT) (BEAKER) (test rbmg=807) 28 U/L 5-34 ALT (SGPT) (BEAKER) (test rqpv=762) 7 U/L 6-55 Specimen moderately ictericPROTHROMBIN [id number] 06:06:00 Test Item Value Reference Range Comments PROTIME (BEAKER) (test hnfb=223) 26.1 seconds 11.7-14.7 INR (BEAKER) (test vefm=977) 2.4 <=5.9 RECOMMENDED COUMADIN/WARFARIN INR THERAPY RANGESSTANDARD DOSE: 2.0 - 3.0 Includes: PROPHYLAXIS forvenous thrombosis, systemic embolization; TREATMENT for venous thrombosis and/or pulmonary embolus.HIGH RISK: Target INR is 2.5-3.5 for patients with mechanical heart valves.CALCIUM, [id number] 06:06:00 Test Item Value Reference Range Comments CALCIUM IONIZED (BEAKER) (test fhbv=467) 1.06 mmol/L 1.12-1.27 PH, BLOOD (BEAKER) (test gidk=6854) 7.46 SURGICALLY OBTAINED CULTURE + GRAM [id number] 23:51:00 Test Item Value Reference Range Comments CULTURE (BEAKER) (test vcva=7528) No growth GRAM STAIN RESULT (BEAKER) (test 1+ WBCs brns=3583) GRAM STAIN RESULT (BEAKER) (test No organisms seen rbof=05101) BODY FLUID CULTURE + GRAM [id number] 23:42:00 Test Item Value Reference Range Comments CULTURE (BEAKER) (test apiq=3219) No growth GRAM STAIN RESULT (BEAKER) (test 1+ WBCs cjun=1990) GRAM STAIN RESULT (BEAKER) (test No organisms seen jhhl=45897) BODY FLUID CELL COUNT WITH [id number] 19:59:00 Test Item Value Reference Range Comments APPEARANCE FLUID (BEAKER) (test lfdk=215) Hazy Clear COLOR FLUID (BEAKER) (test ujmv=891) Yellow Colorless, Straw RBC FLUID (BEAKER) (test bokh=432) 2435 /cu mm <=1 ADJUSTED WBC FLUID (BEAKER) (test xvbm=8256) 441 /cu mm <=5 LINING CELLS (BEAKER) (test nugm=7486) 9 /cu mm <=1 NEUTROPHILS FLUID (BEAKER) (test lsjq=4754) 16 % LYMPHS FLUID (BEAKER) (test gnwo=709) 10 % MONO/MACROPHAGE FLUID (BEAKER) (test dvia=311) 74 % EOSINOPHILS FLUID (BEAKER) (test esbh=856) 0 % BASO FLUID (BEAKER) (test hzof=666) 0 % CONTAINER BODY FLUID (BEAKER) (test zmcq=6490) EDTA Tube [id number] 11:01:00 Test Item Value Reference Range Comments PROCALCITONIN (BEAKER) (test wgmg=2908) 0.25 ng/mL <0.05 SEPSIS RISK (ng/mL)Low: 0.05-0.50Intermediate: 0.51-2.00High: & gt;=2.01CBC W/PLT COUNT & AUTO [id number] 08:40:00 Test Item Value Reference Range Comments WHITE BLOOD CELL COUNT (BEAKER) (test zlkk=630) 6.3 K/ L 4.0-10.0 RED BLOOD CELL COUNT (BEAKER) (test xizf=338) 2.07 M/ L 4.20-5.80 HEMOGLOBIN (BEAKER) (test lkwg=978) 7.1 GM/DL 13.0-16.8 HEMATOCRIT (BEAKER) (test wqun=666) 21.9 % 40.0-50.0 MEAN CORPUSCULAR VOLUME (BEAKER) (test qftr=675) 106.0 fL 82.0-98.0 MEAN CORPUSCULAR HEMOGLOBIN (BEAKER) (test 34.1 pg 27.0-33.0 xhqs=443) MEAN CORPUSCULAR HEMOGLOBIN CONC (BEAKER) (test 32.2 GM/DL 32.0-36.0 qnva=588) RED CELL DISTRIBUTION WIDTH (BEAKER) (test 13.1 % 10.3-14.2 usuf=430) PLATELET COUNT (BEAKER) (test rqmg=357) 78 K/CU MM 150-430 MEAN PLATELET VOLUME (BEAKER) (test fgvj=242) 6.6 fL 6.5-10.5 NUCLEATED RED BLOOD CELLS (BEAKER) (test 0 /100 WBC 0-0 pdrf=161) NEUTROPHILS RELATIVE PERCENT (BEAKER) (test 73 % qdyi=132) LYMPHOCYTES RELATIVE PERCENT (BEAKER) (test 10 % fkjk=961) MONOCYTES RELATIVE PERCENT (BEAKER) (test 13 % hawm=108) EOSINOPHILS RELATIVE PERCENT (BEAKER) (test 4 % rrot=883) BASOPHILS RELATIVE PERCENT (BEAKER) (test 0 % jjgt=477) NEUTROPHILS ABSOLUTE COUNT (BEAKER) (test 4.60 K/ L 1.80-8.00 rjbu=625) LYMPHOCYTES ABSOLUTE COUNT (BEAKER) (test 0.64 K/ L 1.48-4.50 rtcv=546) MONOCYTES ABSOLUTE COUNT (BEAKER) (test kpgp=045) 0.81 K/ L 0.00-1.30 EOSINOPHILS ABSOLUTE COUNT (BEAKER) (test 0.23 K/ L 0.00-0.50 rdui=938) BASOPHILS ABSOLUTE COUNT (BEAKER) (test ybqz=257) 0.01 K/ L 0.00-0.20 [id number] 06:50:00 Test Item Value Reference Range Comments PHOSPHORUS (BEAKER) (test sjbk=656) 3.0 mg/dL 2.3-4.7 [id number] 06:50:00 Test Item Value Reference Range Comments MAGNESIUM (BEAKER) (test bflf=091) 1.9 mg/dL 1.6-2.6 BASIC METABOLIC [id number] 06:50:00 Test Item Value Reference Range Comments SODIUM (BEAKER) (test 135 meq/L 136-145 rqro=308) POTASSIUM (BEAKER) (test 4.2 meq/L 3.5-5.1 efvi=744) CHLORIDE (BEAKER) (test 106 meq/L 98-107 hrxt=956) CO2 (BEAKER) (test 21 meq/L 22-29 qlpd=658) BLOOD UREA NITROGEN 19 mg/dL 7-21 (BEAKER) (test lvqm=289) CREATININE (BEAKER) (test 1.62 mg/dL 0.57-1.25 ugqq=666) GLUCOSE RANDOM (BEAKER) 98 mg/dL 70-105 (test ajxi=001) CALCIUM (BEAKER) (test 8.6 mg/dL 8.4-10.2 selv=749) EGFR (BEAKER) (test 45 mL/min/1.73 sq m ESTIMATED GFR IS NOT chwh=2476) ACCURATE CREATININE CLEARANCE IN PREDICTING GLOMERULAR FILTRATION RATE. ESTIMATED GFR IS NOT APPLICABLE FOR DIALYSIS PATIENTS. Specimen moderately ictericHEPATIC FUNCTION [id number] 06:50:00 Test Item Value Reference Range Comments TOTAL PROTEIN (BEAKER) (test cnoj=000) 6.3 gm/dL 6.0-8.3 ALBUMIN (BEAKER) (test ygrn=8689) 3.7 g/dL 3.5-5.0 BILIRUBIN TOTAL (BEAKER) (test wexz=467) 6.2 mg/dL 0.2-1.2 BILIRUBIN DIRECT (BEAKER) (test pynf=679) 2.8 mg/dL 0.1-0.5 ALKALINE PHOSPHATASE (BEAKER) (test jioq=784) 54 U/L 40-150 AST (SGOT) (BEAKER) (test vimv=471) 29 U/L 5-34 ALT (SGPT) (BEAKER) (test wkyr=744) 8 U/L 6-55 Specimen moderately ictericCALCIUM, [id number] 06:48:00 Test Item Value Reference Range Comments CALCIUM IONIZED (BEAKER) (test ijlq=232) 1.12 mmol/L 1.12-1.27 PH, BLOOD (BEAKER) (test ogsc=9154) 7.33 PROTHROMBIN [id number] 06:24:00 Test Item Value Reference Range Comments PROTIME (BEAKER) (test ftgc=154) 25.4 seconds 11.7-14.7 INR (BEAKER) (test tsow=736) 2.3 <=5.9 RECOMMENDED COUMADIN/WARFARIN INR THERAPY RANGESSTANDARD DOSE: 2.0 - 3.0 Includes: PROPHYLAXIS forvenous thrombosis, systemic embolization; TREATMENT for venous thrombosis and/or pulmonary embolus.HIGH RISK: Target INR is 2.5-3.5 for patients with mechanical heart valves.[id number] 11:17:00 Test Item Value Reference Range Comments FIBRINOGEN LEVEL (BEAKER) (test nrfu=596) 115 mg/dl 225-434 CALCIUM, [id number] 06:04:00 Test Item Value Reference Range Comments CALCIUM IONIZED (BEAKER) (test vxxg=299) 1.08 mmol/L 1.12-1.27 PH, BLOOD (BEAKER) (test thcb=7458) 7.41 CBC W/PLT COUNT & AUTO [id number] 05:28:00 Test Item Value Reference Range Comments WHITE BLOOD CELL COUNT (BEAKER) (test uosg=151) 5.6 K/ L 4.0-10.0 RED BLOOD CELL COUNT (BEAKER) (test dksx=884) 2.00 M/ L 4.20-5.80 HEMOGLOBIN (BEAKER) (test ybqc=542) 7.2 GM/DL 13.0-16.8 HEMATOCRIT (BEAKER) (test hvkw=262) 21.2 % 40.0-50.0 MEAN CORPUSCULAR VOLUME (BEAKER) (test yujt=916) 106.0 fL 82.0-98.0 MEAN CORPUSCULAR HEMOGLOBIN (BEAKER) (test 36.0 pg 27.0-33.0 aavf=567) MEAN CORPUSCULAR HEMOGLOBIN CONC (BEAKER) (test 34.0 GM/DL 32.0-36.0 znng=069) RED CELL DISTRIBUTION WIDTH (BEAKER) (test 13.9 % 10.3-14.2 gsxs=569) PLATELET COUNT (BEAKER) (test ukew=423) 74 K/CU MM 150-430 MEAN PLATELET VOLUME (BEAKER) (test tmzy=761) 6.6 fL 6.5-10.5 NUCLEATED RED BLOOD CELLS (BEAKER) (test 0 /100 WBC 0-0 spzc=394) NEUTROPHILS RELATIVE PERCENT (BEAKER) (test 66 % juek=833) LYMPHOCYTES RELATIVE PERCENT (BEAKER) (test 14 % nyzz=147) MONOCYTES RELATIVE PERCENT (BEAKER) (test 13 % euag=814) EOSINOPHILS RELATIVE PERCENT (BEAKER) (test 7 % ewlq=045) BASOPHILS RELATIVE PERCENT (BEAKER) (test 0 % rtnp=394) NEUTROPHILS ABSOLUTE COUNT (BEAKER) (test 3.67 K/ L 1.80-8.00 mqyg=779) LYMPHOCYTES ABSOLUTE COUNT (BEAKER) (test 0.80 K/ L 1.48-4.50 girt=880) MONOCYTES ABSOLUTE COUNT (BEAKER) (test lnuu=337) 0.69 K/ L 0.00-1.30 EOSINOPHILS ABSOLUTE COUNT (BEAKER) (test 0.38 K/ L 0.00-0.50 xmsf=875) BASOPHILS ABSOLUTE COUNT (BEAKER) (test covw=560) 0.02 K/ L 0.00-0.20 0.00PROTHROMBIN [id number] 05:11:00 Test Item Value Reference Range Comments PROTIME (BEAKER) (test roao=985) 25.9 seconds 11.7-14.7 INR (BEAKER) (test wave=181) 2.4 <=5.9 RECOMMENDED COUMADIN/WARFARIN INR THERAPY RANGESSTANDARD DOSE: 2.0 - 3.0 Includes: PROPHYLAXIS forvenous thrombosis, systemic embolization; TREATMENT for venous thrombosis and/or pulmonary embolus.HIGH RISK: Target INR is 2.5-3.5 for patients with mechanical heart valves.[id number] 05:03:00 Test Item Value Reference Range Comments PHOSPHORUS (BEAKER) (test iuht=075) 3.5 mg/dL 2.3-4.7 [id number] 05:03:00 Test Item Value Reference Range Comments MAGNESIUM (BEAKER) (test qaxk=095) 1.7 mg/dL 1.6-2.6 BASIC METABOLIC [id number] 05:03:00 Test Item Value Reference Range Comments SODIUM (BEAKER) (test 135 meq/L 136-145 uqnn=048) POTASSIUM (BEAKER) (test 4.0 meq/L 3.5-5.1 ezgc=305) CHLORIDE (BEAKER) (test 107 meq/L 98-107 bjuw=114) CO2 (BEAKER) (test 20 meq/L 22-29 jmsr=042) BLOOD UREA NITROGEN 22 mg/dL 7-21 (BEAKER) (test jrhp=417) CREATININE (BEAKER) (test 1.77 mg/dL 0.57-1.25 ttwr=776) GLUCOSE RANDOM (BEAKER) 83 mg/dL 70-105 (test weoc=874) CALCIUM (BEAKER) (test 8.3 mg/dL 8.4-10.2 nkof=861) EGFR (BEAKER) (test 41 mL/min/1.73 sq m ESTIMATED GFR IS NOT xiik=9192) ACCURATE CREATININE CLEARANCE IN PREDICTING GLOMERULAR FILTRATION RATE. ESTIMATED GFR IS NOT APPLICABLE FOR DIALYSIS PATIENTS. Specimen moderately ictericHEPATIC FUNCTION [id number] 05:03:00 Test Item Value Reference Range Comments TOTAL PROTEIN (BEAKER) (test ajjk=861) 6.2 gm/dL 6.0-8.3 ALBUMIN (BEAKER) (test sxny=4159) 3.7 g/dL 3.5-5.0 BILIRUBIN TOTAL (BEAKER) (test koko=327) 6.0 mg/dL 0.2-1.2 BILIRUBIN DIRECT (BEAKER) (test igne=411) 2.6 mg/dL 0.1-0.5 ALKALINE PHOSPHATASE (BEAKER) (test cxun=714) 48 U/L 40-150 AST (SGOT) (BEAKER) (test pfti=452) 26 U/L 5-34 ALT (SGPT) (BEAKER) (test kdxk=658) 8 U/L 6-55 Specimen moderately ictericURINE [id number] 14:42:00 Test Item Value Reference Range Comments CULTURE (BEAKER) (test zdwa=9691) No growth ANTI-NUCLEAR ANTIBODY (CHERYL)2017-02-12 13:32:00 Test Item Value Reference Range Comments ANTI-NUCLEAR ANTIBODY (CHERYL) (BEAKER) (test Negative Negative hwws=220) PLATELET [id number] 06:30:00 Test Item Value Reference Range Comments PLATELET COUNT (BEAKER) (test fpya=337) 104 K/CU MM 150-430 [id number] 06:22:00 Test Item Value Reference Range Comments FIBRINOGEN LEVEL (BEAKER) (test hzfq=311) 106 mg/dl 225-434 [id number] 06:16:00 Test Item Value Reference Range Comments PARTIAL THROMBOPLASTIN TIME (BEAKER) (test 48.1 seconds 22.5-36.0 jaju=275) PROTHROMBIN [id number] 06:15:00 Test Item Value Reference Range Comments PROTIME (BEAKER) (test rinr=063) 23.5 seconds 11.7-14.7 INR (BEAKER) (test lpud=386) 2.1 <=5.9 RECOMMENDED COUMADIN/WARFARIN INR THERAPY RANGESSTANDARD DOSE: 2.0 - 3.0 Includes: PROPHYLAXIS forvenous thrombosis, systemic embolization; TREATMENT for venous thrombosis and/or pulmonary embolus.HIGH RISK: Target INR is 2.5-3.5 for patients with mechanical heart valves.[id number] 06:12:00 Test Item Value Reference Range Comments MAGNESIUM (BEAKER) (test 2.0 mg/dL 1.6-2.6 Specimen slightly hemolyzed igwz=217) [id number] 06:12:00 Test Item Value Reference Range Comments PHOSPHORUS (BEAKER) (test 5.0 mg/dL 2.3-4.7 Specimen slightly hemolyzed mnzi=208) BASIC METABOLIC [id number] 06:12:00 Test Item Value Reference Range Comments SODIUM (BEAKER) (test 135 meq/L 136-145 wfbn=469) POTASSIUM (BEAKER) (test 4.7 meq/L 3.5-5.1 Specimen slightly pmic=590) hemolyzed CHLORIDE (BEAKER) (test 107 meq/L 98-107 gcwv=911) CO2 (BEAKER) (test 20 meq/L 22-29 mjms=163) BLOOD UREA NITROGEN 18 mg/dL 7-21 (BEAKER) (test gdmm=067) CREATININE (BEAKER) (test 1.74 mg/dL 0.57-1.25 Specimen slightly npjf=691) hemolyzed GLUCOSE RANDOM (BEAKER) 76 mg/dL 70-105 (test cnem=453) CALCIUM (BEAKER) (test 8.1 mg/dL 8.4-10.2 fgao=689) EGFR (BEAKER) (test 42 mL/min/1.73 sq m ESTIMATED GFR IS NOT syda=5500) ACCURATE CREATININE CLEARANCE IN PREDICTING GLOMERULAR FILTRATION RATE. ESTIMATED GFR IS NOT APPLICABLE FOR DIALYSIS PATIENTS. Specimen moderately ictericHEPATIC FUNCTION [id number] 06:12:00 Test Item Value Reference Range Comments TOTAL PROTEIN (BEAKER) (test 6.6 gm/dL 6.0-8.3 Specimen slightly hemolyzed gyiq=354) ALBUMIN (BEAKER) (test 3.7 g/dL 3.5-5.0 Specimen slightly hemolyzed gpne=2458) BILIRUBIN TOTAL (BEAKER) (test 5.7 mg/dL 0.2-1.2 Specimen slightly hemolyzed tasp=645) BILIRUBIN DIRECT (BEAKER) (test 2.7 mg/dL 0.1-0.5 Specimen slightly hemolyzed xfsn=080) ALKALINE PHOSPHATASE (BEAKER) 56 U/L 40-150 (test uvmh=739) AST (SGOT) (BEAKER) (test 29 U/L 5-34 Specimen slightly hemolyzed oghs=540) ALT (SGPT) (BEAKER) (test 7 U/L 6-55 Specimen slightly hemolyzed zaxa=791) Specimen moderately ictericLACTIC ACID, VENOUS, WHOLE [id number] 06:04:00 Test Item Value Reference Range Comments LACTATE BLOOD VENOUS (2) (BEAKER) (test 1.0 mmol/L 0.5-2.2 piot=9687) Effective 02/28/2016: Units/Reference Range ChangeNew: 0.5-2.2 mmol/L Previous: 5 -20 mg/dLSpecimen moderately ictericCALCIUM, [id number] 05:56:00 Test Item Value Reference Range Comments CALCIUM IONIZED (BEAKER) (test fbwm=944) 1.00 mmol/L 1.12-1.27 PH, BLOOD (BEAKER) (test siia=3744) 7.34 [id number] 21:34:00 Test Item Value Reference Range Comments FIBRINOGEN LEVEL (BEAKER) (test khgc=592) 105 mg/dl 225-434 PLATELET [id number] 20:52:00 Test Item Value Reference Range Comments PLATELET COUNT (BEAKER) (test webc=688) 77 K/CU MM 150-430 [id number] 20:51:00 Test Item Value Reference Range Comments PROTIME (BEAKER) (test udlv=631) 21.1 seconds 11.7-14.7 INR (BEAKER) (test mwsi=842) 1.8 <=5.9 PARTIAL THROMBOPLASTIN TIME (BEAKER) (test 47.3 seconds 22.5-36.0 retw=608) RECOMMENDED COUMADIN/WARFARIN INR THERAPY RANGESSTANDARD DOSE: 2.0 - 3.0 Includes: PROPHYLAXIS forvenous thrombosis, systemic embolization; TREATMENT for venous thrombosis and/or pulmonary embolus.HIGH RISK: Target INR is 2.5-3.5 for patients with mechanical heart valves.[id number] 20:51:00 Test Item Value Reference Range Comments PARTIAL THROMBOPLASTIN TIME (BEAKER) (test 47.3 seconds 22.5-36.0 zjgh=100) PROTHROMBIN [id number] 20:50:00 Test Item Value Reference Range Comments PROTIME (BEAKER) (test crxj=678) 21.1 seconds 11.7-14.7 INR (BEAKER) (test qzev=835) 1.8 <=5.9 RECOMMENDED COUMADIN/WARFARIN INR THERAPY RANGESSTANDARD DOSE: 2.0 - 3.0 Includes: PROPHYLAXIS forvenous thrombosis, systemic embolization; TREATMENT for venous thrombosis and/or pulmonary embolus.HIGH RISK: Target INR is 2.5-3.5 for patients with mechanical heart valves.[id number] 19:30:00 Test Item Value Reference Range Comments PARTIAL THROMBOPLASTIN TIME (BEAKER) (test 45.1 seconds 22.5-36.0 vsul=142) PROTHROMBIN TIME/[id number] 19:29:00 Test Item Value Reference Range Comments PROTIME (BEAKER) (test noao=383) 28.2 seconds 11.7-14.7 INR (BEAKER) (test lxii=644) 2.6 <=5.9 RECOMMENDED COUMADIN/WARFARIN INR THERAPY RANGESSTANDARD DOSE: 2.0 - 3.0 Includes: PROPHYLAXIS forvenous thrombosis, systemic embolization; TREATMENT for venous thrombosis and/or pulmonary embolus.HIGH RISK: Target INR is 2.5-3.5 for patients with mechanical heart valves.BODY FLUID CELL COUNT WITH [id number] 18:53:00 Test Item Value Reference Range Comments APPEARANCE FLUID (BEAKER) (test gkxe=806) Hazy Clear COLOR FLUID (BEAKER) (test brdd=289) Yellow Colorless, Straw RBC FLUID (BEAKER) (test guap=112) 900 /cu mm <=1 ADJUSTED WBC FLUID (BEAKER) (test qbry=7038) 306 /cu mm <=5 LINING CELLS (BEAKER) (test momm=1248) 64 /cu mm <=1 NEUTROPHILS FLUID (BEAKER) (test mzbj=9101) 4 % LYMPHS FLUID (BEAKER) (test gefm=374) 18 % MONO/MACROPHAGE FLUID (BEAKER) (test omwq=585) 78 % EOSINOPHILS FLUID (BEAKER) (test mvng=856) 0 % BASO FLUID (BEAKER) (test fcdo=227) 0 % CONTAINER BODY FLUID (BEAKER) (test pqfe=6823) EDTA Tube [id number] 16:56:00 Test Item Value Reference Range Comments AMYLASE (BEAKER) (test nylx=828) 37 U/L 25-125 Specimen moderately ictericCOMPREHENSIVE METABOLIC [id number] 16:56:00 Test Item Value Reference Range Comments TOTAL PROTEIN (BEAKER) 6.1 gm/dL 6.0-8.3 (test sotz=932) ALBUMIN (BEAKER) (test 3.2 g/dL 3.5-5.0 emch=9767) ALKALINE PHOSPHATASE 67 U/L 40-150 (BEAKER) (test csha=806) BILIRUBIN TOTAL (BEAKER) 5.7 mg/dL 0.2-1.2 (test pohm=155) SODIUM (BEAKER) (test 134 meq/L 136-145 rfax=858) POTASSIUM (BEAKER) (test 3.8 meq/L 3.5-5.1 fese=645) CHLORIDE (BEAKER) (test 106 meq/L 98-107 pzhe=975) CO2 (BEAKER) (test 19 meq/L 22-29 ozxm=389) BLOOD UREA NITROGEN 18 mg/dL 7-21 (BEAKER) (test lwme=750) CREATININE (BEAKER) (test 1.52 mg/dL 0.57-1.25 fmvg=181) GLUCOSE RANDOM (BEAKER) 112 mg/dL 70-105 (test qseh=830) CALCIUM (BEAKER) (test 8.3 mg/dL 8.4-10.2 thxj=157) AST (SGOT) (BEAKER) (test 28 U/L 5-34 ymtp=623) ALT (SGPT) (BEAKER) (test 10 U/L 6-55 odcr=916) EGFR (BEAKER) (test 49 mL/min/1.73 sq m ESTIMATED GFR IS NOT gpvk=0161) ACCURATE CREATININE CLEARANCE IN PREDICTING GLOMERULAR FILTRATION RATE. ESTIMATED GFR IS NOT APPLICABLE FOR DIALYSIS PATIENTS. Specimen moderately [id number] 16:56:00 Test Item Value Reference Range Comments LIPASE (BEAKER) (test owxd=524) 52 U/L 8-78 Specimen moderately ictericCBC W/PLT COUNT & AUTO [id number] 16: 27:00 Test Item Value Reference Range Comments WHITE BLOOD CELL COUNT (BEAKER) (test mlju=101) 3.7 K/ L 4.0-10.0 RED BLOOD CELL COUNT (BEAKER) (test gtgi=878) 2.16 M/ L 4.20-5.80 HEMOGLOBIN (BEAKER) (test rdgv=101) 7.8 GM/DL 13.0-16.8 HEMATOCRIT (BEAKER) (test lwmc=166) 23.1 % 40.0-50.0 MEAN CORPUSCULAR VOLUME (BEAKER) (test ppec=413) 107.0 fL 82.0-98.0 MEAN CORPUSCULAR HEMOGLOBIN (BEAKER) (test 36.0 pg 27.0-33.0 fcmo=318) MEAN CORPUSCULAR HEMOGLOBIN CONC (BEAKER) (test 33.6 GM/DL 32.0-36.0 owiu=697) RED CELL DISTRIBUTION WIDTH (BEAKER) (test 13.9 % 10.3-14.2 hmhf=672) PLATELET COUNT (BEAKER) (test ndpv=540) 78 K/CU MM 150-430 MEAN PLATELET VOLUME (BEAKER) (test iyan=956) 6.2 fL 6.5-10.5 NUCLEATED RED BLOOD CELLS (BEAKER) (test 0 /100 WBC 0-0 vbdf=988) NEUTROPHILS RELATIVE PERCENT (BEAKER) (test 50 % uoqp=981) LYMPHOCYTES RELATIVE PERCENT (BEAKER) (test 25 % klqe=131) MONOCYTES RELATIVE PERCENT (BEAKER) (test 19 % bhcj=790) EOSINOPHILS RELATIVE PERCENT (BEAKER) (test 6 % xpar=969) BASOPHILS RELATIVE PERCENT (BEAKER) (test 1 % kmfs=237) NEUTROPHILS ABSOLUTE COUNT (BEAKER) (test 1.82 K/ L 1.80-8.00 axqk=826) LYMPHOCYTES ABSOLUTE COUNT (BEAKER) (test 0.91 K/ L 1.48-4.50 lvqn=415) MONOCYTES ABSOLUTE COUNT (BEAKER) (test jbaq=573) 0.69 K/ L 0.00-1.30 EOSINOPHILS ABSOLUTE COUNT (BEAKER) (test 0.21 K/ L 0.00-0.50 edqg=568) BASOPHILS ABSOLUTE COUNT (BEAKER) (test tygo=638) 0.02 K/ L 0.00-0.20 0.00HEPATIC FUNCTION [id number] 08:34:00 Test Item Value Reference Range Comments TOTAL PROTEIN (BEAKER) (test nzmj=585) 5.9 gm/dL 6.0-8.3 ALBUMIN (BEAKER) (test xeuy=4344) 3.2 g/dL 3.5-5.0 BILIRUBIN TOTAL (BEAKER) (test joxl=123) 5.4 mg/dL 0.2-1.2 BILIRUBIN DIRECT (BEAKER) (test vfdq=988) 2.5 mg/dL 0.1-0.5 ALKALINE PHOSPHATASE (BEAKER) (test cjpi=770) 60 U/L 40-150 AST (SGOT) (BEAKER) (test xrod=870) 28 U/L 5-34 ALT (SGPT) (BEAKER) (test ndky=906) 10 U/L 6-55 Specimen moderately [id number] 08:16:00 Test Item Value Reference Range Comments PHOSPHORUS (BEAKER) (test obxi=556) 3.0 mg/dL 2.3-4.7 [id number] 08:16:00 Test Item Value Reference Range Comments MAGNESIUM (BEAKER) (test afjp=006) 1.6 mg/dL 1.6-2.6 BASIC METABOLIC [id number] 08:16:00 Test Item Value Reference Range Comments SODIUM (BEAKER) (test 133 meq/L 136-145 qiti=246) POTASSIUM (BEAKER) (test 3.6 meq/L 3.5-5.1 ahxt=234) CHLORIDE (BEAKER) (test 105 meq/L 98-107 hjpo=767) CO2 (BEAKER) (test 20 meq/L 22-29 aexi=367) BLOOD UREA NITROGEN 18 mg/dL 7-21 (BEAKER) (test ccnn=802) CREATININE (BEAKER) (test 1.54 mg/dL 0.57-1.25 uoam=933) GLUCOSE RANDOM (BEAKER) 70 mg/dL 70-105 (test gugg=965) CALCIUM (BEAKER) (test 8.2 mg/dL 8.4-10.2 cuuo=093) EGFR (BEAKER) (test 48 mL/min/1.73 sq m ESTIMATED GFR IS NOT hszh=8438) ACCURATE CREATININE CLEARANCE IN PREDICTING GLOMERULAR FILTRATION RATE. ESTIMATED GFR IS NOT APPLICABLE FOR DIALYSIS PATIENTS. Specimen moderately ictericCBC W/PLT COUNT & AUTO [id number] 08: 06:00 Test Item Value Reference Range Comments WHITE BLOOD CELL COUNT (BEAKER) (test bxii=151) 3.4 K/ L 4.0-10.0 RED BLOOD CELL COUNT (BEAKER) (test saot=862) 2.03 M/ L 4.20-5.80 HEMOGLOBIN (BEAKER) (test rdmh=431) 7.3 GM/DL 13.0-16.8 HEMATOCRIT (BEAKER) (test wkma=962) 21.6 % 40.0-50.0 MEAN CORPUSCULAR VOLUME (BEAKER) (test thlh=372) 106.0 fL 82.0-98.0 MEAN CORPUSCULAR HEMOGLOBIN (BEAKER) (test 35.8 pg 27.0-33.0 bztw=318) MEAN CORPUSCULAR HEMOGLOBIN CONC (BEAKER) (test 33.7 GM/DL 32.0-36.0 ewva=594) RED CELL DISTRIBUTION WIDTH (BEAKER) (test 13.5 % 10.3-14.2 tifw=618) PLATELET COUNT (BEAKER) (test bypl=243) 82 K/CU MM 150-430 MEAN PLATELET VOLUME (BEAKER) (test iusp=715) 6.7 fL 6.5-10.5 NUCLEATED RED BLOOD CELLS (BEAKER) (test 0 /100 WBC 0-0 qvxh=536) NEUTROPHILS RELATIVE PERCENT (BEAKER) (test 50 % cdir=044) LYMPHOCYTES RELATIVE PERCENT (BEAKER) (test 25 % rwnt=344) MONOCYTES RELATIVE PERCENT (BEAKER) (test 19 % fejl=826) EOSINOPHILS RELATIVE PERCENT (BEAKER) (test 5 % vvko=968) BASOPHILS RELATIVE PERCENT (BEAKER) (test 1 % cmxs=193) NEUTROPHILS ABSOLUTE COUNT (BEAKER) (test 1.69 K/ L 1.80-8.00 bmnm=424) LYMPHOCYTES ABSOLUTE COUNT (BEAKER) (test 0.83 K/ L 1.48-4.50 eglq=126) MONOCYTES ABSOLUTE COUNT (BEAKER) (test wthq=187) 0.65 K/ L 0.00-1.30 EOSINOPHILS ABSOLUTE COUNT (BEAKER) (test 0.17 K/ L 0.00-0.50 vjpl=076) BASOPHILS ABSOLUTE COUNT (BEAKER) (test neln=932) 0.04 K/ L 0.00-0.20 0.00PROTHROMBIN [id number] 08:01:00 Test Item Value Reference Range Comments PROTIME (BEAKER) (test zuqt=701) 27.6 seconds 11.7-14.7 INR (BEAKER) (test vhcj=523) 2.6 <=5.9 RECOMMENDED COUMADIN/WARFARIN INR THERAPY RANGESSTANDARD DOSE: 2.0 - 3.0 Includes: PROPHYLAXIS forvenous thrombosis, systemic embolization; TREATMENT for venous thrombosis and/or pulmonary embolus.HIGH RISK: Target INR is 2.5-3.5 for patients with mechanical heart valves.CALCIUM, [id number] 07:58:00 Test Item Value Reference Range Comments CALCIUM IONIZED (BEAKER) (test ntdw=545) 1.00 mmol/L 1.12-1.27 PH, BLOOD (BEAKER) (test vcrg=0080) 7.53 URINALYSIS W/ [id number] 18:42:00 Test Item Value Reference Range Comments COLOR (BEAKER) (test mebp=017) Yellow CLARITY (BEAKER) (test zoxl=554) Clear SPECIFIC GRAVITY UA (BEAKER) (test 1.009 1.001-1.035 qptp=145) PH UA (BEAKER) (test lrab=508) 7.5 5.0-8.0 PROTEIN UA (BEAKER) (test wjxp=777) Negative Negative GLUCOSE UA (BEAKER) (test zkfb=587) Negative Negative KETONES UA (BEAKER) (test qflk=600) Negative Negative BILIRUBIN UA (BEAKER) (test jxkc=062) Negative Negative BLOOD UA (BEAKER) (test hkex=089) Negative Negative NITRITE UA (BEAKER) (test kleb=288) Negative Negative LEUKOCYTE ESTERASE UA (BEAKER) (test Negative Negative rgjj=547) UROBILINOGEN UA (BEAKER) (test gelk=984) 3.0 mg/dL 0.2-1.0 RBC UA (BEAKER) (test oqxp=540) 6 /HPF WBC UA (BEAKER) (test evpk=263) 1 /HPF SOURCE(BEAKER) (test mhlm=0596) Urine, Clean Catch PROTHROMBIN [id number] 15:13:00 Test Item Value Reference Range Comments PROTIME (BEAKER) (test hfhz=094) 31.4 seconds 11.7-14.7 INR (BEAKER) (test omdf=825) 3.0 <=5.9 RECOMMENDED COUMADIN/WARFARIN INR THERAPY RANGESSTANDARD DOSE: 2.0 - 3.0 Includes: PROPHYLAXIS forvenous thrombosis, systemic embolization; TREATMENT for venous thrombosis and/or pulmonary embolus.HIGH RISK: Target INR is 2.5-3.5 for patients with mechanical heart valves.Draw after vitamin K administrationCBC W/PLT COUNT & AUTO [id number] 07:02:00 Test Item Value Reference Range Comments WHITE BLOOD CELL COUNT (BEAKER) (test qbxo=274) 3.0 K/ L 4.0-10.0 RED BLOOD CELL COUNT (BEAKER) (test nfrq=060) 2.21 M/ L 4.20-5.80 HEMOGLOBIN (BEAKER) (test fzul=429) 7.5 GM/DL 13.0-16.8 HEMATOCRIT (BEAKER) (test rbow=300) 23.5 % 40.0-50.0 MEAN CORPUSCULAR VOLUME (BEAKER) (test xfiy=117) 106.0 fL 82.0-98.0 MEAN CORPUSCULAR HEMOGLOBIN (BEAKER) (test 34.0 pg 27.0-33.0 qbbp=656) MEAN CORPUSCULAR HEMOGLOBIN CONC (BEAKER) (test 32.0 GM/DL 32.0-36.0 auou=960) RED CELL DISTRIBUTION WIDTH (BEAKER) (test 13.0 % 10.3-14.2 bjfe=956) PLATELET COUNT (BEAKER) (test mxix=813) 81 K/CU MM 150-430 MEAN PLATELET VOLUME (BEAKER) (test hkzw=392) 6.3 fL 6.5-10.5 NUCLEATED RED BLOOD CELLS (BEAKER) (test 0 /100 WBC 0-0 sqrt=902) NEUTROPHILS RELATIVE PERCENT (BEAKER) (test 52 % qtjs=110) LYMPHOCYTES RELATIVE PERCENT (BEAKER) (test 24 % hdjz=565) MONOCYTES RELATIVE PERCENT (BEAKER) (test 20 % fnqr=133) EOSINOPHILS RELATIVE PERCENT (BEAKER) (test 3 % kkuh=485) BASOPHILS RELATIVE PERCENT (BEAKER) (test 1 % lybn=416) NEUTROPHILS ABSOLUTE COUNT (BEAKER) (test 1.53 K/ L 1.80-8.00 qiuu=682) LYMPHOCYTES ABSOLUTE COUNT (BEAKER) (test 0.71 K/ L 1.48-4.50 sboq=653) MONOCYTES ABSOLUTE COUNT (BEAKER) (test zprs=438) 0.60 K/ L 0.00-1.30 EOSINOPHILS ABSOLUTE COUNT (BEAKER) (test 0.10 K/ L 0.00-0.50 wrrk=008) BASOPHILS ABSOLUTE COUNT (BEAKER) (test gdqg=997) 0.03 K/ L 0.00-0.20 0.00BASIC METABOLIC [id number] 06:29:00 Test Item Value Reference Range Comments SODIUM (BEAKER) (test 135 meq/L 136-145 iwkp=936) POTASSIUM (BEAKER) (test 4.0 meq/L 3.5-5.1 cotv=675) CHLORIDE (BEAKER) (test 106 meq/L 98-107 uoio=011) CO2 (BEAKER) (test 22 meq/L 22-29 dpiy=255) BLOOD UREA NITROGEN 17 mg/dL 7-21 (BEAKER) (test egyc=462) CREATININE (BEAKER) (test 1.46 mg/dL 0.57-1.25 rjrq=628) GLUCOSE RANDOM (BEAKER) 75 mg/dL 70-105 (test gtsw=163) CALCIUM (BEAKER) (test 8.0 mg/dL 8.4-10.2 nons=659) EGFR (BEAKER) (test 51 mL/min/1.73 sq m ESTIMATED GFR IS NOT srlc=8735) ACCURATE CREATININE CLEARANCE IN PREDICTING GLOMERULAR FILTRATION RATE. ESTIMATED GFR IS NOT APPLICABLE FOR DIALYSIS PATIENTS. Specimen moderately ictericHEPATIC FUNCTION [id number] 06:29:00 Test Item Value Reference Range Comments TOTAL PROTEIN (BEAKER) (test fjhu=858) 5.9 gm/dL 6.0-8.3 ALBUMIN (BEAKER) (test wyil=1511) 3.0 g/dL 3.5-5.0 BILIRUBIN TOTAL (BEAKER) (test nlzt=307) 5.4 mg/dL 0.2-1.2 BILIRUBIN DIRECT (BEAKER) (test dlwe=674) 2.7 mg/dL 0.1-0.5 ALKALINE PHOSPHATASE (BEAKER) (test esem=103) 65 U/L 40-150 AST (SGOT) (BEAKER) (test lbsa=845) 27 U/L 5-34 ALT (SGPT) (BEAKER) (test jtsl=129) 7 U/L 6-55 Specimen moderately ictericPROTHROMBIN TIME/[id number] 06:23:00 Test Item Value Reference Range Comments PROTIME (BEAKER) (test yaca=350) 31.2 seconds 11.7-14.7 INR (BEAKER) (test voxu=640) 3.0 <=5.9 RECOMMENDED COUMADIN/WARFARIN INR THERAPY RANGESSTANDARD DOSE: 2.0 - 3.0 Includes: PROPHYLAXIS forvenous thrombosis, systemic embolization; TREATMENT for venous thrombosis and/or pulmonary embolus.HIGH RISK: Target INR is 2.5-3.5 for patients with mechanical heart valves.CBC W/PLT COUNT & AUTO [id number] 06:26:00 Test Item Value Reference Range Comments WHITE BLOOD CELL COUNT (BEAKER) (test pyax=390) 3.0 K/ L 4.0-10.0 RED BLOOD CELL COUNT (BEAKER) (test kjek=648) 2.16 M/ L 4.20-5.80 HEMOGLOBIN (BEAKER) (test yauw=651) 7.4 GM/DL 13.0-16.8 HEMATOCRIT (BEAKER) (test cdox=253) 23.1 % 40.0-50.0 MEAN CORPUSCULAR VOLUME (BEAKER) (test bwsw=071) 107.0 fL 82.0-98.0 MEAN CORPUSCULAR HEMOGLOBIN (BEAKER) (test 34.4 pg 27.0-33.0 pfqw=072) MEAN CORPUSCULAR HEMOGLOBIN CONC (BEAKER) (test 32.1 GM/DL 32.0-36.0 gbwy=858) RED CELL DISTRIBUTION WIDTH (BEAKER) (test 13.1 % 10.3-14.2 hwmh=899) PLATELET COUNT (BEAKER) (test lzvg=892) 72 K/CU MM 150-430 MEAN PLATELET VOLUME (BEAKER) (test egjv=286) 6.1 fL 6.5-10.5 NUCLEATED RED BLOOD CELLS (BEAKER) (test 0 /100 WBC 0-0 obvl=676) NEUTROPHILS RELATIVE PERCENT (BEAKER) (test 58 % rsln=796) LYMPHOCYTES RELATIVE PERCENT (BEAKER) (test 21 % kvdf=177) MONOCYTES RELATIVE PERCENT (BEAKER) (test 15 % huaz=281) EOSINOPHILS RELATIVE PERCENT (BEAKER) (test 4 % hcal=958) BASOPHILS RELATIVE PERCENT (BEAKER) (test 1 % iktj=971) NEUTROPHILS ABSOLUTE COUNT (BEAKER) (test 1.73 K/ L 1.80-8.00 opcf=722) LYMPHOCYTES ABSOLUTE COUNT (BEAKER) (test 0.64 K/ L 1.48-4.50 lwke=223) MONOCYTES ABSOLUTE COUNT (BEAKER) (test nnqt=894) 0.45 K/ L 0.00-1.30 EOSINOPHILS ABSOLUTE COUNT (BEAKER) (test 0.13 K/ L 0.00-0.50 jmut=132) BASOPHILS ABSOLUTE COUNT (BEAKER) (test xvzt=473) 0.02 K/ L 0.00-0.20 0.00BASIC METABOLIC [id number] 06:24:00 Test Item Value Reference Range Comments SODIUM (BEAKER) (test 134 meq/L 136-145 yvsa=782) POTASSIUM (BEAKER) (test 3.7 meq/L 3.5-5.1 tdyc=630) CHLORIDE (BEAKER) (test 105 meq/L 98-107 nerv=836) CO2 (BEAKER) (test 21 meq/L 22-29 uifc=263) BLOOD UREA NITROGEN 18 mg/dL 7-21 (BEAKER) (test xjty=229) CREATININE (BEAKER) (test 1.53 mg/dL 0.57-1.25 veaf=458) GLUCOSE RANDOM (BEAKER) 103 mg/dL 70-105 (test lhhh=544) CALCIUM (BEAKER) (test 7.6 mg/dL 8.4-10.2 qgxx=004) EGFR (BEAKER) (test 48 mL/min/1.73 sq m ESTIMATED GFR IS NOT pezz=3628) ACCURATE CREATININE CLEARANCE IN PREDICTING GLOMERULAR FILTRATION RATE. ESTIMATED GFR IS NOT APPLICABLE FOR DIALYSIS PATIENTS. Specimen moderately ictericHEPATIC FUNCTION [id number] 06:19:00 Test Item Value Reference Range Comments TOTAL PROTEIN (BEAKER) (test wfqb=911) 5.6 gm/dL 6.0-8.3 ALBUMIN (BEAKER) (test fpbv=0003) 2.4 g/dL 3.5-5.0 BILIRUBIN TOTAL (BEAKER) (test imjo=306) 4.8 mg/dL 0.2-1.2 BILIRUBIN DIRECT (BEAKER) (test ijrl=745) 2.6 mg/dL 0.1-0.5 ALKALINE PHOSPHATASE (BEAKER) (test mtdy=439) 70 U/L 40-150 AST (SGOT) (BEAKER) (test fiax=152) 28 U/L 5-34 ALT (SGPT) (BEAKER) (test yfgn=689) 11 U/L 6-55 Specimen moderately ictericPROTHROMBIN TIME/[id number] 06:00:00 Test Item Value Reference Range Comments PROTIME (BEAKER) (test tnfs=394) 36.7 seconds 11.7-14.7 INR (BEAKER) (test zjfs=219) 3.7 <=5.9 RECOMMENDED COUMADIN/WARFARIN INR THERAPY RANGESSTANDARD DOSE: 2.0 - 3.0 Includes: PROPHYLAXIS forvenous thrombosis, systemic embolization; TREATMENT for venous thrombosis and/or pulmonary embolus.HIGH RISK: Target INR is 2.5-3.5 for patients with mechanical heart valves.BODY FLUID CULTURE + GRAM [id number] 00:51:00 Test Item Value Reference Range Comments CULTURE (BEAKER) (test oywv=3164) No growth GRAM STAIN RESULT (BEAKER) (test 3+ WBCs ezoc=9345) GRAM STAIN RESULT (BEAKER) (test No organisms seen pcsf=39481) BLOOD [id number] 17:08:00 Test Item Value Reference Range Comments CULTURE (BEAKER) (test qlbc=1627) No growth in 5 days BLOOD [id number] 17:06:00 Test Item Value Reference Range Comments CULTURE (BEAKER) (test jteo=6272) No growth in 5 days CBC W/PLT COUNT & AUTO [id number] 07:05:00 Test Item Value Reference Range Comments WHITE BLOOD CELL COUNT (BEAKER) (test vdnd=602) 3.5 K/ L 4.0-10.0 RED BLOOD CELL COUNT (BEAKER) (test pejz=852) 2.16 M/ L 4.20-5.80 HEMOGLOBIN (BEAKER) (test zuma=545) 7.8 GM/DL 13.0-16.8 HEMATOCRIT (BEAKER) (test isio=737) 23.9 % 40.0-50.0 MEAN CORPUSCULAR VOLUME (BEAKER) (test pmgr=619) 111.0 fL 82.0-98.0 MEAN CORPUSCULAR HEMOGLOBIN (BEAKER) (test 36.3 pg 27.0-33.0 uuwc=002) MEAN CORPUSCULAR HEMOGLOBIN CONC (BEAKER) (test 32.8 GM/DL 32.0-36.0 uwij=810) RED CELL DISTRIBUTION WIDTH (BEAKER) (test 13.9 % 10.3-14.2 eznd=772) PLATELET COUNT (BEAKER) (test mfep=872) 72 K/CU MM 150-430 MEAN PLATELET VOLUME (BEAKER) (test ghsd=408) 6.4 fL 6.5-10.5 NUCLEATED RED BLOOD CELLS (BEAKER) (test 0 /100 WBC 0-0 vldf=713) NEUTROPHILS RELATIVE PERCENT (BEAKER) (test 51 % pldc=382) LYMPHOCYTES RELATIVE PERCENT (BEAKER) (test 25 % gigj=829) MONOCYTES RELATIVE PERCENT (BEAKER) (test 18 % qlra=530) EOSINOPHILS RELATIVE PERCENT (BEAKER) (test 6 % horo=682) BASOPHILS RELATIVE PERCENT (BEAKER) (test 0 % nvxo=320) NEUTROPHILS ABSOLUTE COUNT (BEAKER) (test 1.77 K/ L 1.80-8.00 grhn=038) LYMPHOCYTES ABSOLUTE COUNT (BEAKER) (test 0.87 K/ L 1.48-4.50 vttk=973) MONOCYTES ABSOLUTE COUNT (BEAKER) (test cikb=018) 0.62 K/ L 0.00-1.30 EOSINOPHILS ABSOLUTE COUNT (BEAKER) (test 0.22 K/ L 0.00-0.50 slxa=841) BASOPHILS ABSOLUTE COUNT (BEAKER) (test reum=944) 0.01 K/ L 0.00-0.20 0.00BASI METABOLIC [id number] 06:54:00 Test Item Value Reference Range Comments SODIUM (BEAKER) (test 137 meq/L 136-145 farj=774) POTASSIUM (BEAKER) (test 3.8 meq/L 3.5-5.1 ufyn=632) CHLORIDE (BEAKER) (test 109 meq/L 98-107 hwst=347) CO2 (BEAKER) (test 21 meq/L 22-29 ywlh=520) BLOOD UREA NITROGEN 17 mg/dL 7-21 (BEAKER) (test mflr=827) CREATININE (BEAKER) (test 1.60 mg/dL 0.57-1.25 tnrl=043) GLUCOSE RANDOM (BEAKER) 76 mg/dL 70-105 (test wrzq=789) CALCIUM (BEAKER) (test 7.5 mg/dL 8.4-10.2 apyg=112) EGFR (BEAKER) (test 46 mL/min/1.73 sq m ESTIMATED GFR IS NOT zmmk=9053) ACCURATE CREATININE CLEARANCE IN PREDICTING GLOMERULAR FILTRATION RATE. ESTIMATED GFR IS NOT APPLICABLE FOR DIALYSIS PATIENTS. Specimen moderately ictericHEPATIC FUNCTION [id number] 06:53:00 Test Item Value Reference Range Comments TOTAL PROTEIN (BEAKER) (test geof=509) 5.6 gm/dL 6.0-8.3 ALBUMIN (BEAKER) (test bidy=5062) 2.4 g/dL 3.5-5.0 BILIRUBIN TOTAL (BEAKER) (test zfqi=336) 4.5 mg/dL 0.2-1.2 BILIRUBIN DIRECT (BEAKER) (test rxah=919) 2.7 mg/dL 0.1-0.5 ALKALINE PHOSPHATASE (BEAKER) (test nwrw=071) 74 U/L 40-150 AST (SGOT) (BEAKER) (test ccga=395) 36 U/L 5-34 ALT (SGPT) (BEAKER) (test tkqr=681) 13 U/L 6-55 Specimen moderately ictericB-TYPE NATRIURETIC FACTOR (BNP)2017-02-08 06:52:00 Test Item Value Reference Range Comments B-TYPE NATRIURETIC PEPTIDE (BEAKER) (test 446 pg/mL 0-100 qgna=097) PROTHROMBIN [id number] 06:36:00 Test Item Value Reference Range Comments PROTIME (BEAKER) (test jkmm=914) 28.7 seconds 11.7-14.7 INR (BEAKER) (test hmst=990) 2.7 <=5.9 RECOMMENDED COUMADIN/WARFARIN INR THERAPY RANGESSTANDARD DOSE: 2.0 - 3.0 Includes: PROPHYLAXIS forvenous thrombosis, systemic embolization; TREATMENT for venous thrombosis and/or pulmonary embolus.HIGH RISK: Target INR is 2.5-3.5 for patients with mechanical heart valves.EOSINOPHIL SMEAR, [id number] 21: 44:00 Test Item Value Reference Range Comments EOSINOPHIL SMEAR, URINE (BEAKER) (test No EOS seen No EOS seen cdri=0473) CREATININE, RANDOM [id number] 18:02:00 Test Item Value Reference Range Comments CREATININE URINE (BEAKER) (test syfq=514) 96.3 mg/dL Reference Range: No NormalsSODIUM, RANDOM [id number] 18:02:00 Test Item Value Reference Range Comments SODIUM URINE (BEAKER) (test lodx=243) 58 meq/L Reference Range: No NormalsURINALYSIS W/ [id number] 17:33:00 Test Item Value Reference Range Comments COLOR (BEAKER) (test tvxp=423) Yellow CLARITY (BEAKER) (test grfi=935) Clear SPECIFIC GRAVITY UA (BEAKER) (test gkjc=117) 1.009 1.001-1.035 PH UA (BEAKER) (test fzab=371) 6.0 5.0-8.0 PROTEIN UA (BEAKER) (test rkkd=334) Negative Negative GLUCOSE UA (BEAKER) (test swdl=541) Negative Negative KETONES UA (BEAKER) (test iqwf=603) Negative Negative BILIRUBIN UA (BEAKER) (test tgzt=927) Negative Negative BLOOD UA (BEAKER) (test lbhq=280) Negative Negative NITRITE UA (BEAKER) (test qxzr=586) Negative Negative LEUKOCYTE ESTERASE UA (BEAKER) (test gszc=655) Negative Negative UROBILINOGEN UA (BEAKER) (test clax=965) 4.0 mg/dL 0.2-1.0 RBC UA (BEAKER) (test ngvd=584) < /HPF WBC UA (BEAKER) (test adjo=948) 2 /HPF BACTERIA (BEAKER) (test jfon=710) Rare SOURCE(BEAKER) (test xmrj=3078) CBC W/PLT COUNT & AUTO [id number] 06:53:00 Test Item Value Reference Range Comments WHITE BLOOD CELL COUNT (BEAKER) (test vnkd=158) 3.5 K/ L 4.0-10.0 RED BLOOD CELL COUNT (BEAKER) (test jatm=750) 2.17 M/ L 4.20-5.80 HEMOGLOBIN (BEAKER) (test qzeh=778) 7.9 GM/DL 13.0-16.8 HEMATOCRIT (BEAKER) (test pnvg=735) 23.9 % 40.0-50.0 MEAN CORPUSCULAR VOLUME (BEAKER) (test sezp=827) 110.0 fL 82.0-98.0 MEAN CORPUSCULAR HEMOGLOBIN (BEAKER) (test 36.1 pg 27.0-33.0 owut=370) MEAN CORPUSCULAR HEMOGLOBIN CONC (BEAKER) (test 32.9 GM/DL 32.0-36.0 kwab=371) RED CELL DISTRIBUTION WIDTH (BEAKER) (test 14.0 % 10.3-14.2 seuq=640) PLATELET COUNT (BEAKER) (test lzyp=163) 77 K/CU MM 150-430 MEAN PLATELET VOLUME (BEAKER) (test boca=974) 6.1 fL 6.5-10.5 NUCLEATED RED BLOOD CELLS (BEAKER) (test 0 /100 WBC 0-0 kvcx=132) NEUTROPHILS RELATIVE PERCENT (BEAKER) (test 56 % hsax=440) LYMPHOCYTES RELATIVE PERCENT (BEAKER) (test 20 % swgy=513) MONOCYTES RELATIVE PERCENT (BEAKER) (test 18 % dasw=089) EOSINOPHILS RELATIVE PERCENT (BEAKER) (test 6 % lzas=402) BASOPHILS RELATIVE PERCENT (BEAKER) (test 1 % iffn=637) NEUTROPHILS ABSOLUTE COUNT (BEAKER) (test 1.95 K/ L 1.80-8.00 eowp=438) LYMPHOCYTES ABSOLUTE COUNT (BEAKER) (test 0.69 K/ L 1.48-4.50 zvxu=570) MONOCYTES ABSOLUTE COUNT (BEAKER) (test fjkr=145) 0.62 K/ L 0.00-1.30 EOSINOPHILS ABSOLUTE COUNT (BEAKER) (test 0.20 K/ L 0.00-0.50 pckh=181) BASOPHILS ABSOLUTE COUNT (BEAKER) (test kchm=160) 0.03 K/ L 0.00-0.20 0.00BASI METABOLIC [id number] 06:45:00 Test Item Value Reference Range Comments SODIUM (BEAKER) (test 134 meq/L 136-145 onxr=843) POTASSIUM (BEAKER) (test 3.6 meq/L 3.5-5.1 henn=809) CHLORIDE (BEAKER) (test 106 meq/L 98-107 tvho=490) CO2 (BEAKER) (test 21 meq/L 22-29 nseo=807) BLOOD UREA NITROGEN 14 mg/dL 7-21 (BEAKER) (test fwqj=174) CREATININE (BEAKER) (test 1.33 mg/dL 0.57-1.25 svro=261) GLUCOSE RANDOM (BEAKER) 71 mg/dL 70-105 (test poxi=998) CALCIUM (BEAKER) (test 7.6 mg/dL 8.4-10.2 kksy=981) EGFR (BEAKER) (test 57 mL/min/1.73 sq m ESTIMATED GFR IS NOT evnq=4852) ACCURATE CREATININE CLEARANCE IN PREDICTING GLOMERULAR FILTRATION RATE. ESTIMATED GFR IS NOT APPLICABLE FOR DIALYSIS PATIENTS. Specimen moderately ictericHEPATIC FUNCTION [id number] 06:40:00 Test Item Value Reference Range Comments TOTAL PROTEIN (BEAKER) (test lcpr=606) 5.6 gm/dL 6.0-8.3 ALBUMIN (BEAKER) (test nqyf=6186) 2.1 g/dL 3.5-5.0 BILIRUBIN TOTAL (BEAKER) (test rcih=203) 4.4 mg/dL 0.2-1.2 BILIRUBIN DIRECT (BEAKER) (test svcc=756) 2.9 mg/dL 0.1-0.5 ALKALINE PHOSPHATASE (BEAKER) (test rger=658) 86 U/L 40-150 AST (SGOT) (BEAKER) (test rjrs=937) 45 U/L 5-34 ALT (SGPT) (BEAKER) (test gfot=300) 13 U/L 6-55 Specimen moderately ictericPROTHROMBIN [id number] 06:05:00 Test Item Value Reference Range Comments PROTIME (BEAKER) (test pqtg=142) 29.4 seconds 11.7-14.7 INR (BEAKER) (test argd=403) 2.8 <=5.9 RECOMMENDED COUMADIN/WARFARIN INR THERAPY RANGESSTANDARD DOSE: 2.0 - 3.0 Includes: PROPHYLAXIS forvenous thrombosis, systemic embolization; TREATMENT for venous thrombosis and/or pulmonary embolus.HIGH RISK: Target INR is 2.5-3.5 for patients with mechanical heart valves.BODY FLUID CELL COUNT WITH [id number] 20:51:00 Test Item Value Reference Range Comments APPEARANCE FLUID (BEAKER) (test fwwj=326) Slightly Hazy Clear COLOR FLUID (BEAKER) (test brfp=757) Yellow Colorless, Straw RBC FLUID (BEAKER) (test bhws=524) 545 /cu mm <=1 ADJUSTED WBC FLUID (BEAKER) (test podq=1988) 104 /cu mm <=5 LINING CELLS (BEAKER) (test mqdo=9605) 1 /cu mm <=1 NEUTROPHILS FLUID (BEAKER) (test uccw=0977) 3 % LYMPHS FLUID (BEAKER) (test cllq=814) 13 % MONO/MACROPHAGE FLUID (BEAKER) (test 84 % wrdc=260) EOSINOPHILS FLUID (BEAKER) (test mdsl=912) 0 % BASO FLUID (BEAKER) (test gmvc=769) 0 % CONTAINER BODY FLUID (BEAKER) (test EDTA Tube frws=3821) POCT-GLUCOSE [id number] 18:48:00 Test Item Value Reference Range Comments POC-GLUCOSE METER (BEAKER) 105 mg/dL 70-[address] [facility] [address] [facility] (test drnq=4702) [facility] [address] BASIC METABOLIC [id number] 05:45:00 Test Item Value Reference Range Comments SODIUM (BEAKER) (test 133 meq/L 136-145 enoz=876) POTASSIUM (BEAKER) (test 4.3 meq/L 3.5-5.1 Specimen moderately pjdg=294) hemolyzed CHLORIDE (BEAKER) (test 107 meq/L 98-107 dxlc=995) CO2 (BEAKER) (test 19 meq/L 22-29 lxkv=640) BLOOD UREA NITROGEN 10 mg/dL 7-21 (BEAKER) (test iljl=581) CREATININE (BEAKER) (test 0.86 mg/dL 0.57-1.25 Specimen moderately pbru=716) hemolyzed GLUCOSE RANDOM (BEAKER) 68 mg/dL 70-105 (test nawc=997) CALCIUM (BEAKER) (test 7.5 mg/dL 8.4-10.2 ukpw=386) EGFR (BEAKER) (test 94 mL/min/1.73 sq m ESTIMATED GFR IS NOT zdrz=7320) ACCURATE CREATININE CLEARANCE IN PREDICTING GLOMERULAR FILTRATION RATE. ESTIMATED GFR IS NOT APPLICABLE FOR DIALYSIS PATIENTS. Specimen slightly ictericHEPATIC FUNCTION [id number] 05:45:00 Test Item Value Reference Range Comments TOTAL PROTEIN (BEAKER) (test 5.9 gm/dL 6.0-8.3 Specimen moderately hemolyzed hnar=101) ALBUMIN (BEAKER) (test 1.9 g/dL 3.5-5.0 Specimen moderately hemolyzed cnhf=9226) BILIRUBIN TOTAL (BEAKER) (test 4.4 mg/dL 0.2-1.2 Specimen moderately hemolyzed rmpy=446) BILIRUBIN DIRECT (BEAKER) 2.6 mg/dL 0.1-0.5 Specimen moderately hemolyzed (test ncsv=420) ALKALINE PHOSPHATASE (BEAKER) 86 U/L 40-150 (test iraz=665) AST (SGOT) (BEAKER) (test 74 U/L 5-34 Specimen moderately hemolyzed xeiw=082) ALT (SGPT) (BEAKER) (test 17 U/L 6-55 Specimen moderately yulu=096) hemolyzed Specimen slightly ictericCBC W/PLT COUNT & AUTO [id number] 05:21 :00 Test Item Value Reference Range Comments WHITE BLOOD CELL COUNT (BEAKER) (test ngxo=981) 3.5 K/ L 4.0-10.0 RED BLOOD CELL COUNT (BEAKER) (test dbko=223) 2.06 M/ L 4.20-5.80 HEMOGLOBIN (BEAKER) (test uwlx=430) 7.9 GM/DL 13.0-16.8 HEMATOCRIT (BEAKER) (test mgfi=737) 22.8 % 40.0-50.0 MEAN CORPUSCULAR VOLUME (BEAKER) (test qfun=772) 110.0 fL 82.0-98.0 MEAN CORPUSCULAR HEMOGLOBIN (BEAKER) (test 38.2 pg 27.0-33.0 hhbe=210) MEAN CORPUSCULAR HEMOGLOBIN CONC (BEAKER) (test 34.6 GM/DL 32.0-36.0 niyk=267) RED CELL DISTRIBUTION WIDTH (BEAKER) (test 13.5 % 10.3-14.2 rawc=664) PLATELET COUNT (BEAKER) (test jygz=194) 61 K/CU MM 150-430 MEAN PLATELET VOLUME (BEAKER) (test xrzc=556) 6.8 fL 6.5-10.5 NUCLEATED RED BLOOD CELLS (BEAKER) (test 0 /100 WBC 0-0 jlda=996) NEUTROPHILS RELATIVE PERCENT (BEAKER) (test 51 % jdjh=694) LYMPHOCYTES RELATIVE PERCENT (BEAKER) (test 24 % oaeq=933) MONOCYTES RELATIVE PERCENT (BEAKER) (test 18 % jgvj=950) EOSINOPHILS RELATIVE PERCENT (BEAKER) (test 7 % xwwy=745) BASOPHILS RELATIVE PERCENT (BEAKER) (test 1 % atwm=799) NEUTROPHILS ABSOLUTE COUNT (BEAKER) (test 1.76 K/ L 1.80-8.00 jgwd=014) LYMPHOCYTES ABSOLUTE COUNT (BEAKER) (test 0.85 K/ L 1.48-4.50 bwau=028) MONOCYTES ABSOLUTE COUNT (BEAKER) (test mchz=893) 0.61 K/ L 0.00-1.30 EOSINOPHILS ABSOLUTE COUNT (BEAKER) (test 0.23 K/ L 0.00-0.50 wkjb=327) BASOPHILS ABSOLUTE COUNT (BEAKER) (test ozsm=450) 0.02 K/ L 0.00-0.20 0.00PROTHROMBIN [id number] 05:19:00 Test Item Value Reference Range Comments PROTIME (BEAKER) (test wtan=536) 28.2 seconds 11.7-14.7 INR (BEAKER) (test sxii=770) 2.6 <=5.9 RECOMMENDED COUMADIN/WARFARIN INR THERAPY RANGESSTANDARD DOSE: 2.0 - 3.0 Includes: PROPHYLAXIS forvenous thrombosis, systemic embolization; TREATMENT for venous thrombosis and/or pulmonary embolus.HIGH RISK: Target INR is 2.5-3.5 for patients with mechanical heart valves.BODY FLUID CULTURE + GRAM [id number] 14:14:00 Test Item Value Reference Range Comments CULTURE (BEAKER) (test xdom=6885) No growth GRAM STAIN RESULT (BEAKER) (test 2+ WBCs qqrs=8352) GRAM STAIN RESULT (BEAKER) (test No organisms seen ukbk=74934) CBC W/PLT COUNT & AUTO [id number] 10:28:00 Test Item Value Reference Range Comments WHITE BLOOD CELL COUNT (BEAKER) (test eske=916) 3.6 K/ L 4.0-10.0 RED BLOOD CELL COUNT (BEAKER) (test znvv=314) 2.17 M/ L 4.20-5.80 HEMOGLOBIN (BEAKER) (test hacc=862) 7.7 GM/DL 13.0-16.8 HEMATOCRIT (BEAKER) (test pkhw=612) 23.8 % 40.0-50.0 MEAN CORPUSCULAR VOLUME (BEAKER) (test miso=377) 110.0 fL 82.0-98.0 MEAN CORPUSCULAR HEMOGLOBIN (BEAKER) (test 35.3 pg 27.0-33.0 qwhd=080) MEAN CORPUSCULAR HEMOGLOBIN CONC (BEAKER) (test 32.1 GM/DL 32.0-36.0 qprh=256) RED CELL DISTRIBUTION WIDTH (BEAKER) (test 13.7 % 10.3-14.2 tfim=787) PLATELET COUNT (BEAKER) (test imzp=257) 62 K/CU MM 150-430 MEAN PLATELET VOLUME (BEAKER) (test cksg=624) 6.5 fL 6.5-10.5 NUCLEATED RED BLOOD CELLS (BEAKER) (test 0 /100 WBC 0-0 hkwg=597) NEUTROPHILS RELATIVE PERCENT (BEAKER) (test 58 % ywdf=430) LYMPHOCYTES RELATIVE PERCENT (BEAKER) (test 18 % brgw=901) MONOCYTES RELATIVE PERCENT (BEAKER) (test 17 % dnzn=752) EOSINOPHILS RELATIVE PERCENT (BEAKER) (test 8 % iumt=249) BASOPHILS RELATIVE PERCENT (BEAKER) (test 0 % ydsi=896) NEUTROPHILS ABSOLUTE COUNT (BEAKER) (test 2.10 K/ L 1.80-8.00 ujcg=353) LYMPHOCYTES ABSOLUTE COUNT (BEAKER) (test 0.63 K/ L 1.48-4.50 usix=770) MONOCYTES ABSOLUTE COUNT (BEAKER) (test flxr=258) 0.59 K/ L 0.00-1.30 EOSINOPHILS ABSOLUTE COUNT (BEAKER) (test 0.28 K/ L 0.00-0.50 bmak=756) BASOPHILS ABSOLUTE COUNT (BEAKER) (test mwbw=811) 0.00 K/ L 0.00-0.20 [id number] 10:16:00 Test Item Value Reference Range Comments PROCALCITONIN (BEAKER) (test zver=6492) < ng/mL <0.05 SEPSIS RISK (ng/mL)Low: 0.05-0.50Intermediate: 0.51-2.00High: & gt;=2.01HEPATIC FUNCTION [id number] 06:26:00 Test Item Value Reference Range Comments TOTAL PROTEIN (BEAKER) (test nxvf=145) 5.6 gm/dL 6.0-8.3 ALBUMIN (BEAKER) (test woab=9934) 1.9 g/dL 3.5-5.0 BILIRUBIN TOTAL (BEAKER) (test slys=868) 4.7 mg/dL 0.2-1.2 BILIRUBIN DIRECT (BEAKER) (test chqk=023) 2.9 mg/dL 0.1-0.5 ALKALINE PHOSPHATASE (BEAKER) (test rvfe=175) 85 U/L 40-150 AST (SGOT) (BEAKER) (test afcd=837) 53 U/L 5-34 ALT (SGPT) (BEAKER) (test sheb=490) 14 U/L 6-55 Specimen moderately ictericBASIC METABOLIC [id number] 06:26:00 Test Item Value Reference Range Comments SODIUM (BEAKER) (test 134 meq/L 136-145 laln=781) POTASSIUM (BEAKER) (test 3.8 meq/L 3.5-5.1 srzx=049) CHLORIDE (BEAKER) (test 107 meq/L 98-107 vspp=055) CO2 (BEAKER) (test 19 meq/L 22-29 bmhj=001) BLOOD UREA NITROGEN 8 mg/dL 7-21 (BEAKER) (test yued=013) CREATININE (BEAKER) (test 0.73 mg/dL 0.57-1.25 agcd=264) GLUCOSE RANDOM (BEAKER) 73 mg/dL 70-105 (test soet=670) CALCIUM (BEAKER) (test 7.2 mg/dL 8.4-10.2 wrhe=526) EGFR (BEAKER) (test 113 mL/min/1.73 sq m ESTIMATED GFR IS NOT knvt=2383) ACCURATE CREATININE CLEARANCE IN PREDICTING GLOMERULAR FILTRATION RATE. ESTIMATED GFR IS NOT APPLICABLE FOR DIALYSIS PATIENTS. Specimen moderately ictericPROTHROMBIN [id number] 06:05:00 Test Item Value Reference Range Comments PROTIME (BEAKER) (test aqde=708) 30.9 seconds 11.7-14.7 INR (BEAKER) (test oofp=310) 3.0 <=5.9 RECOMMENDED COUMADIN/WARFARIN INR THERAPY RANGESSTANDARD DOSE: 2.0 - 3.0 Includes: PROPHYLAXIS forvenous thrombosis, systemic embolization; TREATMENT for venous thrombosis and/or pulmonary embolus.HIGH RISK: Target INR is 2.5-3.5 for patients with mechanical heart valves.[id number] 05:54:00 Test Item Value Reference Range Comments PREALBUMIN (BEAKER) (test tzcj=014) < mg/dL 14-45 URINE [id number] 12:11:00 Test Item Value Reference Range Comments CULTURE (BEAKER) (test miau=2777) No growth VANCOMYCIN LEVEL, [id number] 09:26:00 Test Item Value Reference Range Comments VANCOMYCIN TROUGH (BEAKER) (test olwb=321) 15.3 ug/mL 10.0-20.0 HEPATIC FUNCTION [id number] 06:17:00 Test Item Value Reference Range Comments TOTAL PROTEIN (BEAKER) (test boip=079) 5.6 gm/dL 6.0-8.3 ALBUMIN (BEAKER) (test uevh=4758) 2.0 g/dL 3.5-5.0 BILIRUBIN TOTAL (BEAKER) (test gtnk=865) 4.2 mg/dL 0.2-1.2 BILIRUBIN DIRECT (BEAKER) (test mztk=485) 2.7 mg/dL 0.1-0.5 ALKALINE PHOSPHATASE (BEAKER) (test legt=764) 98 U/L 40-150 AST (SGOT) (BEAKER) (test ngrc=196) 45 U/L 5-34 ALT (SGPT) (BEAKER) (test ejmr=318) 12 U/L 6-55 Specimen slightly ictericBASIC METABOLIC [id number] 06:17:00 Test Item Value Reference Range Comments SODIUM (BEAKER) (test 133 meq/L 136-145 slkr=203) POTASSIUM (BEAKER) (test 3.4 meq/L 3.5-5.1 ghgq=843) CHLORIDE (BEAKER) (test 107 meq/L 98-107 wheg=499) CO2 (BEAKER) (test 22 meq/L 22-29 fqfm=560) BLOOD UREA NITROGEN 7 mg/dL 7-21 (BEAKER) (test mhzl=922) CREATININE (BEAKER) (test 0.73 mg/dL 0.57-1.25 jrvz=351) GLUCOSE RANDOM (BEAKER) 87 mg/dL 70-105 (test sjiv=278) CALCIUM (BEAKER) (test 7.2 mg/dL 8.4-10.2 xlmi=849) EGFR (BEAKER) (test 113 mL/min/1.73 sq m ESTIMATED GFR IS NOT fgyq=5968) ACCURATE CREATININE CLEARANCE IN PREDICTING GLOMERULAR FILTRATION RATE. ESTIMATED GFR IS NOT APPLICABLE FOR DIALYSIS PATIENTS. Specimen slightly ictericPROTHROMBIN [id number] 06:04:00 Test Item Value Reference Range Comments PROTIME (BEAKER) (test azti=192) 31.7 seconds 11.7-14.7 INR (BEAKER) (test sgtn=305) 3.0 <=5.9 RECOMMENDED COUMADIN/WARFARIN INR THERAPY RANGESSTANDARD DOSE: 2.0 - 3.0 Includes: PROPHYLAXIS forvenous thrombosis, systemic embolization; TREATMENT for venous thrombosis and/or pulmonary embolus.HIGH RISK: Target INR is 2.5-3.5 for patients with mechanical heart valves.VITAMIN B12 AND [id number] 19:36 :00 Test Item Value Reference Range Comments VITAMIN B12 (BEAKER) (test wxgg=782) 1121 pg/mL 213-816 FOLATE (BEAKER) (test ypbq=456) 18.3 ng/mL >=7.0 Effective 09/13/2014: Folate Reference Range ChangeNew: >=7.0 Previous: & gt;=5.4VITAMIN B12 AND [id number] 14:57:00 Test Item Value Reference Range Comments VITAMIN B12 (BEAKER) (test kpyo=123) 1325 pg/mL 213-816 FOLATE (BEAKER) (test aqun=568) 8.3 ng/mL >=7.0 Effective 09/13/2014: Folate Reference Range ChangeNew: >=7.0 Previous: & gt;=5.4ANTI-NUCLEAR ANTIBODY (CHERYL)2017-02-03 13:56:00 Test Item Value Reference Range Comments ANTI-NUCLEAR ANTIBODY (CHERYL) (BEAKER) (test Negative Negative yemk=706) HEPATITIS B CORE ANTIBODY, [id number] 12:27:00 Test Item Value Reference Range Comments HEPATITIS B CORE TOTAL ANTIBODY (BEAKER) (test Nonreactive Nonreactive cakx=366) CRYPTOCOCCAL [id number] 11:25:00 Test Item Value Reference Range Comments CRYPTOCOCCAL ANTIGEN, SERUM (BEAKER) (test Negative Negative, Interference tlys=7467) HEPATITIS B SURFACE [id number] 11:15:00 Test Item Value Reference Range Comments HEPATITIS B SURFACE ANTIBODY (BEAKER) (test < mIU/mL <8.0 uwei=037) HEPATITIS B SURFACE [id number] 09:53:00 Test Item Value Reference Range Comments HEPATITIS B SURFACE ANTIGEN (2) (BEAKER) (test Nonreactive Nonreactive zehk=0387) HIV-1 ANTIGEN WITH HIV-1/2 [id number] 09:53:00 Test Item Value Reference Range Comments HIV-1 ANTIGEN WITH HIV 1\\T\\2 ANTIBODY (2) Nonreactive Nonreactive (BEAKER) (test dupp=6236) HEPATIC FUNCTION [id number] 07:01:00 Test Item Value Reference Range Comments TOTAL PROTEIN (BEAKER) (test bbik=788) 5.5 gm/dL 6.0-8.3 ALBUMIN (BEAKER) (test isov=9298) 2.0 g/dL 3.5-5.0 BILIRUBIN TOTAL (BEAKER) (test duth=954) 3.8 mg/dL 0.2-1.2 BILIRUBIN DIRECT (BEAKER) (test yphw=564) 2.5 mg/dL 0.1-0.5 ALKALINE PHOSPHATASE (BEAKER) (test jczk=274) 108 U/L 40-150 AST (SGOT) (BEAKER) (test xvdl=829) 40 U/L 5-34 ALT (SGPT) (BEAKER) (test kykn=056) 10 U/L 6-55 Specimen slightly ictericBASIC METABOLIC [id number] 07:01:00 Test Item Value Reference Range Comments SODIUM (BEAKER) (test 133 meq/L 136-145 kcfo=229) POTASSIUM (BEAKER) (test 3.7 meq/L 3.5-5.1 nrsd=063) CHLORIDE (BEAKER) (test 108 meq/L 98-107 avaf=514) CO2 (BEAKER) (test 20 meq/L 22-29 dhnk=062) BLOOD UREA NITROGEN 7 mg/dL 7-21 (BEAKER) (test ylwl=410) CREATININE (BEAKER) (test 0.76 mg/dL 0.57-1.25 ralr=653) GLUCOSE RANDOM (BEAKER) 100 mg/dL 70-105 (test ictu=042) CALCIUM (BEAKER) (test 7.3 mg/dL 8.4-10.2 qrak=738) EGFR (BEAKER) (test 108 mL/min/1.73 sq m ESTIMATED GFR IS NOT hsln=2041) ACCURATE CREATININE CLEARANCE IN PREDICTING GLOMERULAR FILTRATION RATE. ESTIMATED GFR IS NOT APPLICABLE FOR DIALYSIS PATIENTS. Specimen slightly ictericCBC W/PLT COUNT & AUTO [id number] 06:53 :00 Test Item Value Reference Range Comments WHITE BLOOD CELL COUNT (BEAKER) (test xnqc=023) 3.5 K/ L 4.0-10.0 RED BLOOD CELL COUNT (BEAKER) (test irna=355) 1.83 M/ L 4.20-5.80 HEMOGLOBIN (BEAKER) (test deyj=525) 7.3 GM/DL 13.0-16.8 HEMATOCRIT (BEAKER) (test fbaz=213) 19.9 % 40.0-50.0 MEAN CORPUSCULAR VOLUME (BEAKER) (test essi=462) 109.0 fL 82.0-98.0 MEAN CORPUSCULAR HEMOGLOBIN (BEAKER) (test 39.9 pg 27.0-33.0 vqob=139) MEAN CORPUSCULAR HEMOGLOBIN CONC (BEAKER) (test 36.6 GM/DL 32.0-36.0 gcge=637) RED CELL DISTRIBUTION WIDTH (BEAKER) (test 14.3 % 10.3-14.2 dykg=419) PLATELET COUNT (BEAKER) (test iakk=515) 35 K/CU MM 150-430 MEAN PLATELET VOLUME (BEAKER) (test yzgn=189) 6.6 fL 6.5-10.5 NUCLEATED RED BLOOD CELLS (BEAKER) (test 0 /100 WBC 0-0 fovr=856) NEUTROPHILS RELATIVE PERCENT (BEAKER) (test 60 % bdrn=481) LYMPHOCYTES RELATIVE PERCENT (BEAKER) (test 18 % nvxa=353) MONOCYTES RELATIVE PERCENT (BEAKER) (test 17 % zikh=440) EOSINOPHILS RELATIVE PERCENT (BEAKER) (test 6 % qjpq=239) BASOPHILS RELATIVE PERCENT (BEAKER) (test 0 % qeoz=264) NEUTROPHILS ABSOLUTE COUNT (BEAKER) (test 2.06 K/ L 1.80-8.00 pwcy=100) LYMPHOCYTES ABSOLUTE COUNT (BEAKER) (test 0.61 K/ L 1.48-4.50 xadt=415) MONOCYTES ABSOLUTE COUNT (BEAKER) (test gwkr=455) 0.58 K/ L 0.00-1.30 EOSINOPHILS ABSOLUTE COUNT (BEAKER) (test 0.19 K/ L 0.00-0.50 hrlu=798) BASOPHILS ABSOLUTE COUNT (BEAKER) (test rgev=156) 0.01 K/ L 0.00-0.20 0.00PROTHROMBIN [id number] 06:39:00 Test Item Value Reference Range Comments PROTIME (BEAKER) (test ouzt=091) 30.6 seconds 11.7-14.7 INR (BEAKER) (test beln=101) 2.9 <=5.9 RECOMMENDED COUMADIN/WARFARIN INR THERAPY RANGESSTANDARD DOSE: 2.0 - 3.0 Includes: PROPHYLAXIS forvenous thrombosis, systemic embolization; TREATMENT for venous thrombosis and/or pulmonary embolus.HIGH RISK: Target INR is 2.5-3.5 for patients with mechanical heart valves.URINALYSIS W/ [id number] 16 :58:00 Test Item Value Reference Range Comments COLOR (BEAKER) (test smkl=226) Yellow CLARITY (BEAKER) (test ntmj=808) Clear SPECIFIC GRAVITY UA (BEAKER) (test 1.025 1.001-1.035 omfo=465) PH UA (BEAKER) (test zclo=163) 7.0 5.0-8.0 PROTEIN UA (BEAKER) (test mlnc=995) Negative Negative GLUCOSE UA (BEAKER) (test sfsq=573) Negative Negative KETONES UA (BEAKER) (test soza=107) Negative Negative BILIRUBIN UA (BEAKER) (test ywhm=801) Positive Negative BLOOD UA (BEAKER) (test zhvv=622) Negative Negative NITRITE UA (BEAKER) (test kfhs=232) Negative Negative LEUKOCYTE ESTERASE UA (BEAKER) (test Negative Negative inbo=966) UROBILINOGEN UA (BEAKER) (test uyqw=336) 8.0 mg/dL 0.2-1.0 RBC UA (BEAKER) (test vone=147) 0 /HPF WBC UA (BEAKER) (test ostx=340) 2 /HPF MUCUS (BEAKER) (test heic=3087) Rare HYALINE CASTS (BEAKER) (test vnnx=612) 3 /LPF SOURCE(BEAKER) (test fvkm=4787) Urine, Clean Catch [id number] 13:32:00 Test Item Value Reference Range Comments FERRITIN (BEAKER) (test till=427) 116 ng/mL 5-275 Effective 09/13/2014: Reference Range ChangeNew: Male 5-275 Previous: Male 22-322 Female 5-275 Female 10-291HEPATITIS A ANTIBODY, [id number] 13:19:00 Test Item Value Reference Range Comments HEPATITIS A IGG ANTIBODY (BEAKER) (test swvk=2582) Reactive Nonreactive ALPHA FETOPROTEIN (AFP), TUMOR [id number] 13:17:00 Test Item Value Reference Range Comments ALPHA-FETOPROTEIN (BEAKER) (test ewbf=4354) 4.5 ng/mL <10.0 Effective 09/13/2014: Reference Range ChangeNew: <10.0 Previous: 0.0- 8.0HEPATITIS C [id number] 13:17:00 Test Item Value Reference Range Comments HEPATITIS C ANTIBODY (BEAKER) (test zwkc=556) Nonreactive Nonreactive BODY FLUID CELL COUNT WITH [id number] 13:03:00 Test Item Value Reference Range Comments APPEARANCE FLUID (BEAKER) (test aooh=563) Cloudy Clear COLOR FLUID (BEAKER) (test qfeg=905) Yellow Colorless, Straw RBC FLUID (BEAKER) (test etwn=476) 1519 /cu mm <=1 ADJUSTED WBC FLUID (BEAKER) (test zsev=4305) 108 /cu mm <=5 LINING CELLS (BEAKER) (test uflj=6389) 14 /cu mm <=1 NEUTROPHILS FLUID (BEAKER) (test pudt=4276) 11 % LYMPHS FLUID (BEAKER) (test ebjt=824) 30 % MONO/MACROPHAGE FLUID (BEAKER) (test nwgn=589) 59 % EOSINOPHILS FLUID (BEAKER) (test jkex=811) 0 % BASO FLUID (BEAKER) (test uhyz=629) 0 % CONTAINER BODY FLUID (BEAKER) (test ypvl=4286) EDTA Tube BASIC METABOLIC [id number] 12:56:00 Test Item Value Reference Range Comments SODIUM (BEAKER) (test 131 meq/L 136-145 wsyb=889) POTASSIUM (BEAKER) (test 4.0 meq/L 3.5-5.1 Specimen moderately kwws=120) hemolyzed CHLORIDE (BEAKER) (test 105 meq/L 98-107 fgmh=084) CO2 (BEAKER) (test 18 meq/L 22-29 limz=600) BLOOD UREA NITROGEN 6 mg/dL 7-21 (BEAKER) (test jtyg=670) CREATININE (BEAKER) (test 0.72 mg/dL 0.57-1.25 Specimen moderately kyas=062) hemolyzed GLUCOSE RANDOM (BEAKER) 103 mg/dL 70-105 (test olcd=350) CALCIUM (BEAKER) (test 7.4 mg/dL 8.4-10.2 urmx=941) EGFR (BEAKER) (test 115 mL/min/1.73 sq m ESTIMATED GFR IS NOT akoe=9929) ACCURATE CREATININE CLEARANCE IN PREDICTING GLOMERULAR FILTRATION RATE. ESTIMATED GFR IS NOT APPLICABLE FOR DIALYSIS PATIENTS. Specimen moderately ictericIRON, TIBC, % SAT. (WITHOUT FERRITIN)2017-02-02 12:56 :00 Test Item Value Reference Range Comments IRON (BEAKER) (test aonx=424) 55 ug/dL 40-160 TOTAL IRON BINDING CAPACITY (BEAKER) (test 175 ug/dL 250-450 jqed=378) IRON % SATURATION (2) (BEAKER) (test sdrg=6142) 31 % 20-55 HEPATIC FUNCTION [id number] 12:50:00 Test Item Value Reference Range Comments TOTAL PROTEIN (BEAKER) (test 6.7 gm/dL 6.0-8.3 Specimen moderately hemolyzed dcgw=152) ALBUMIN (BEAKER) (test 2.0 g/dL 3.5-5.0 Specimen moderately hemolyzed tpex=1614) BILIRUBIN TOTAL (BEAKER) (test 5.1 mg/dL 0.2-1.2 Specimen moderately hemolyzed pnrn=965) BILIRUBIN DIRECT (BEAKER) 2.8 mg/dL 0.1-0.5 Specimen moderately hemolyzed (test adcv=804) ALKALINE PHOSPHATASE (BEAKER) 99 U/L 40-150 (test kmof=898) AST (SGOT) (BEAKER) (test 62 U/L 5-34 Specimen moderately hemolyzed ucio=262) ALT (SGPT) (BEAKER) (test 15 U/L 6-55 Specimen moderately kaaw=692) hemolyzed Specimen moderately ictericCBC W/PLT COUNT & AUTO [id number] 12: 47:00 Test Item Value Reference Range Comments WHITE BLOOD CELL COUNT (BEAKER) (test lxnw=969) 3.3 K/ L 4.0-10.0 RED BLOOD CELL COUNT (BEAKER) (test feee=807) 2.08 M/ L 4.20-5.80 HEMOGLOBIN (BEAKER) (test jsae=115) 7.8 GM/DL 13.0-16.8 HEMATOCRIT (BEAKER) (test uqvi=565) 22.9 % 40.0-50.0 MEAN CORPUSCULAR VOLUME (BEAKER) (test epod=506) 110.0 fL 82.0-98.0 MEAN CORPUSCULAR HEMOGLOBIN (BEAKER) (test 37.4 pg 27.0-33.0 ebdk=664) MEAN CORPUSCULAR HEMOGLOBIN CONC (BEAKER) (test 34.1 GM/DL 32.0-36.0 pare=573) RED CELL DISTRIBUTION WIDTH (BEAKER) (test 15.0 % 10.3-14.2 wygp=189) PLATELET COUNT (BEAKER) (test home=438) 48 K/CU MM 150-430 MEAN PLATELET VOLUME (BEAKER) (test kqgs=035) 6.6 fL 6.5-10.5 NUCLEATED RED BLOOD CELLS (BEAKER) (test 0 /100 WBC 0-0 tsjm=903) NEUTROPHILS RELATIVE PERCENT (BEAKER) (test 62 % pvyn=924) LYMPHOCYTES RELATIVE PERCENT (BEAKER) (test 17 % wuij=701) MONOCYTES RELATIVE PERCENT (BEAKER) (test 15 % hnhs=077) EOSINOPHILS RELATIVE PERCENT (BEAKER) (test 6 % cpgq=059) BASOPHILS RELATIVE PERCENT (BEAKER) (test 0 % hlcf=659) NEUTROPHILS ABSOLUTE COUNT (BEAKER) (test 2.03 K/ L 1.80-8.00 ilvs=376) LYMPHOCYTES ABSOLUTE COUNT (BEAKER) (test 0.57 K/ L 1.48-4.50 fuvq=666) MONOCYTES ABSOLUTE COUNT (BEAKER) (test kudx=446) 0.48 K/ L 0.00-1.30 EOSINOPHILS ABSOLUTE COUNT (BEAKER) (test 0.19 K/ L 0.00-0.50 nfcm=119) BASOPHILS ABSOLUTE COUNT (BEAKER) (test piuu=294) 0.01 K/ L 0.00-0.20 0.00PROTHROMBIN [id number] 12:42:00 Test Item Value Reference Range Comments PROTIME (BEAKER) (test hnmo=527) 27.0 seconds 11.7-14.7 INR (BEAKER) (test avna=793) 2.5 <=5.9 RECOMMENDED COUMADIN/WARFARIN INR THERAPY RANGESSTANDARD DOSE: 2.0 - 3.0 Includes: PROPHYLAXIS forvenous thrombosis, systemic embolization; TREATMENT for venous thrombosis and/or pulmonary embolus.HIGH RISK: Target INR is 2.5-3.5 for patients with mechanical heart valves.ALBUMIN, BODY [id number] 11:46:00 Test Item Value Reference Range Comments ALBUMIN FLUID (BEAKER) (test sgwo=221) 0.5 gm/dL Reference Range: No Normals Assay performance has not been validated for this type of specimen.PROTEIN, BODY [id number] 11:42:00 Test Item Value Reference Range Comments PROTEIN FLUID (BEAKER) (test bcxe=647) 1.3 g/dL Absence of reference range indicates that normals have not been defined.Assay performance has not been validated for this type of specimen.
--- OUTSIDE RECORDS SUMMARY | 2019-02-01 18:20 | XMS REPORT ---
[...] Dosage System Date Date Ondansetron HCl [facility] 47039673522 4 MG Orally Active 1 tab every 8 hours as needed for Nausea and vomiting Hydrocortisone ND 23982661482 20 MG Orally AM Active 1 tablet Once a day with food or milk Magnesium Oxide ND 98382030199 400 MG Orally Active 1 tablet BID as needed Rifaximin [facility] [address]-50 550 MG Orally Active 1 tablet Twice a day Pantoprazole ND 96579607233 40 MG Orally Active 1 tablet Sodium Once a day Sodium Chloride ND 55959437851 1 GM Orally TID Active 2 tablets Lactulose ND 81621927734 10 GM/15ML Active 15 ml Orally TID Ondansetron HCl [facility] 62805892721 4 MG Active 1 TAB EVERY 8 HOURS NEEDED FOR NAUSEA AND VOMITING ORALLY 10 DAYS Citalopram [facility] 19729628038 40 MG Orally Active take one Hydrobromide once a day daily Hydrocortisone [facility] 87795288449 10 MG Orally PM Active 1 tablet Once a day with food or milk NuFera [facility] 73485368662 - Orally once a Active 1 tab day Citalopram [facility] 04037030808 10 MG Active TAKE ONE Hydrobromide DAILY Ursodiol [facility] 63699619464 300 MG Orally Active not defined Midodrine HCl [facility] 13863161708 10 MG Orally Active 1 tablet Three times a day Results No Known Results Summary Purpose eClinicalWorks Submission
--- OUTSIDE RECORDS SUMMARY | 2019-02-01 18:20 | XMS REPORT ---
[...] Status Dosage System Date Date Ensure High [facility] 83480916709 - Orally every Oct 19, Active drink 320 Protein 4-6 hours 2018 ml Ondansetron HCl ND 00484029287 4 MG Orally Active 1 tablet every 6 hours as needed for nausea/vo miting Results No Known Results Summary Purpose eClinicalWorks Submission
--- OUTSIDE RECORDS SUMMARY | 2019-02-01 18:20 | XMS REPORT ---
[...] Status Dosage System Date Date Midodrine HCl [facility] 84848978590 10 MG Orally Active 1 tablet Three times a day Pantoprazole [facility] 42479940423 40 MG Orally Active 1 tablet Sodium Once a day Sodium Chloride ND 64073049521 1 GM Orally TID Active 2 tablets Ondansetron HCl ND 51817360878 4 MG Orally Active 1 tab every 8 hours as needed for Nausea and vomiting Hydrocortisone ND 22602725926 20 MG Orally AM Active 1 tablet Once a day with food or milk Ursodiol ND 83919955543 300 MG Orally Active not defined Lactulose ND 11283203127 10 GM/15ML Active 15 ml Orally TID Citalopram [facility] 88807890850 10 MG Active TAKE ONE Hydrobromide DAILY Rifaximin [facility] [address]-27 550 MG Orally Active 1 tablet Twice a day Ondansetron HCl [facility] 41456762829 4 MG Active 1 TAB EVERY 8 HOURS NEEDED FOR NAUSEA AND VOMITING ORALLY 10 DAYS Magnesium Oxide [facility] 44880524807 400 MG Orally Active 1 tablet BID as needed NuFera [facility] 03861813558 - Orally once a Active 1 tab day Hydrocortisone [facility] 84946065551 10 MG Orally PM Active 1 tablet Once a day with food or milk Results No Known Results Summary Purpose eClinicalWorks Submission
--- OUTSIDE RECORDS SUMMARY | 2019-02-01 18:20 | XMS REPORT ---
[...] Status Dosage System Date Date Ondansetron HCl [facility] 10409896819 4 MG Orally Active 1 tab every 8 hours as needed for Nausea and vomiting Ondansetron HCl ND 17593187223 4 MG Orally Active 1 tablet every 6 hours as needed for nausea/vom iting Citalopram [facility] 97356670847 10 MG Active TAKE ONE Hydrobromide DAILY Hydrocortisone ND 04826271187 20 MG Orally AM Active 1 tablet Once a day with food or milk Lactulose [facility] 40846687617 10 GM/15ML Active 15 ml Orally TID NuFera [facility] 46794002976 - Orally once a Active 1 tab day Sodium Chloride [facility] 56870579347 1 GM Orally TID Active 2 tablets Ensure High [facility] 91560232004 - Orally every Oct 19, Active drink 320 Protein 4-6 hours 2018 ml Magnesium Oxide [facility] 12672436928 400 MG Orally Active 1 tablet BID as needed Hydrocortisone [facility] 94203357466 10 MG Orally PM Active 1 tablet Once a day with food or milk Ondansetron HCl [facility] 11885246674 4 MG Active 1 TAB EVERY 8 HOURS NEEDED FOR NAUSEA AND VOMITING ORALLY 10 DAYS Midodrine HCl [facility] 94927157384 10 MG Orally Active 1 tablet twice a day Ursodiol [facility] 07235009453 300 MG Orally Active not defined Rifaximin [facility] [address]-75 550 MG Orally Active 1 tablet Twice a day Citalopram [facility] 00461163997 40 MG Orally Active take one Hydrobromide once a day daily Pantoprazole [facility] 67336278624 40 MG Orally Active 1 tablet Sodium Once a day Results No Known Results Summary Purpose eClinicalWorks Submission
--- OUTSIDE RECORDS SUMMARY | 2019-02-01 18:21 | XMS REPORT ---
[...] Status Dosage System Date Date Ondansetron HCl [facility] 63109541660 4 MG Orally Active 1 tablet every 6 hours as needed for nausea/vo miting Results No Known Results Summary Purpose [employer] Submission
--- OUTSIDE RECORDS SUMMARY | 2019-02-01 18:21 | XMS REPORT ---
[...] Medications Results No Known Results Summary Purpose [employer] Submission
--- OUTSIDE RECORDS SUMMARY | 2019-02-01 18:21 | XMS REPORT ---
[...] Start Date End Date Status Dosage Lactulose [facility] 00338855011 10 GM/15ML Orally Jun 02, Active 30 ml TID 2018 Results No Known Results Summary Purpose eClinicalWorks Submission
[2019-02-01 18:24] LABS: Protime INR 1.79
--- NOTE | 2019-02-01 18:32 | EDPHYS ---
Physician Documentation [facility] Name: Abhishek Davis Age: 53 yrs Sex: Male : 1965 Arrival Date: 02/01/2019 Time: 17:51 Bed 4 Private MD: ED Physician Stanislaw Stratton HPI: 02/01 18:16 This 53 yrs old Male presents to ER via EMS with complaints of Tachycardia, marquise Shortness Of Breath. 18:16 The patient has shortness of breath at rest, with light activity. Onset: The marquise symptoms/episode began/occurred 2 day(s) ago. The patient's shortness of breath has no apparent modifying factors. Historical: - Allergies: 18:19 No Known Allergies; sv - Home Meds: 18:19 ergocalciferol (vitamin D2) miscellaneous powd [Active]; hydroxyzine HCl 25 mg Oral tab sv PRN [Active]; Lactulose Oral 30 mL 3 times per day [Active]; midodrine 10 mg Oral tab 1 tab 3 times per day [Active]; mirtazapine 7.5 mg Oral tab 1 tabs once daily [Active]; ondansetron HCl 4 mg Oral tab 1 tabs every 12 hours [Active]; pantoprazole 40 mg Oral TbEC 2 tabs once daily [Active]; multivitamin oral tab daily [Active]; rifaximin oral 550 mg PO BID oral [Active]; tramadol 50 mg Oral tab 1 tab every 6 hours [Active]; ursodiol 300 mg Oral cap 1 cap 2 times per day [Active]; - PMHx: 18:19 Anemia; renal insufficiency; Umbilical hernia; Vitamin D deficiency; Depression; sv Encephalopathy; GERD; Alcoholic cirrhosis; Dermatitis; Muscle weakness; Lack of coordination; - Immunization history:: Adult Immunizations up to date. - Social history:: Smoking status: Patient/guardian denies using tobacco. - Family history:: not pertinent. - Ebola Screening: : No symptoms or risks identified at this time. ROS: 18:17 Constitutional: Negative for fever, chills, and weight loss, Eyes: Negative for injury, marquise pain, redness, and discharge, ENT: Negative for injury, pain, and discharge, Neck: Negative for injury, pain, and swelling, Back: Negative for injury and pain, Skin: Negative for injury, rash, and discoloration, Psych: Negative for depression, anxiety, suicide ideation, homicidal ideation, and hallucinations, Allergy/Immunology: Negative for hives, rash, and allergies, Endocrine: Negative for neck swelling, polydipsia, polyuria, polyphagia, and marked weight changes, Hematologic/Lymphatic: Negative for swollen nodes, abnormal bleeding, and unusual bruising. 18:17 Cardiovascular: Positive for palpitations. 18:17 Respiratory: Positive for shortness of breath. 18:17 Abdomen/GI: Positive for abdominal distension. 18:17 MS/extremity: Positive for decreased range of motion, of the right leg and left leg. Exam: 18:17 Eyes: Extraocular movements: no acute changes, Conjunctiva: pale, Sclera: icterus. marquise 18:17 Chest/axilla: Inspection: no acute changes. 18:17 Cardiovascular: Rate: tachycardic, Rhythm: regular, Pulses: Pulses are 3+ in bilateral radial, brachial, femoral, popliteal, posterior tibial and and dorsalis pedis arteries.. Heart sounds: normal, Edema: is not appreciated, JVD: is not appreciated. 18:17 Respiratory: the patient does not display signs of respiratory distress, Respirations: labored breathing, that is mild, Breath sounds: decreased breath sounds, Respiratory rate: 22 Vital Signs: 17:47 BP 112 / 90; Pulse 148; Resp 26; Temp 99.9(O); Pulse Ox 95% ; sv 18:47 BP 129 / 101; Pulse 136; Resp 19; Pulse Ox 98% on R/A; sv 19:00 BP 132 / 101; Pulse 142; Resp 19; Pulse Ox 97% ; ea 19:30 BP 122 / 101; Pulse 133; Resp 17; Pulse Ox 96% on R/A; ea 19:36 BP 122 / 104; Pulse 118; Resp 19; Pulse Ox 97% ; ea 20:00 BP 135 / 104; Pulse 113; Resp 19; Temp 98.7; Pulse Ox 99% ; ea 21:00 BP 134 / 102; Pulse 108; Resp 19; Pulse Ox 98% ; ea MDM: 17:53 Patient medically screened. marquise 18:32 Data reviewed: vital signs, nurses notes, lab test result(s), EKG, radiologic studies, marquise plain films. 02/01 17:53 Order name: Basic Metabolic Panel sv 02/01 17:53 Order name: Blood Culture Adult (2) sv 02/01 17:53 Order name: CBC with Diff sv 02/01 17:53 Order name: Ckmb; Complete Time: 18:48 sv 02/01 17:53 Order name: CPK; Complete Time: 18:48 sv 02/01 17:53 Order name: Lactate; Complete Time: 18:36 sv 02/01 17:53 Order name: LFT's; Complete Time: 18:48 sv 02/01 17:53 Order name: Lipase; Complete Time: 18:48 sv 02/01 17:53 Order name: Procalcitonin; Complete Time: 18:48 sv 02/01 17:53 Order name: Protime (+inr); Complete Time: 18:36 sv 02/01 17:53 Order name: Ptt, Activated; Complete Time: 18:36 sv 02/01 17:53 Order name: Troponin (emerg Dept Use Only); Complete Time: 18:48 sv 02/01 17:53 Order name: Urine Microscopic Only; Complete Time: 20:31 sv 02/01 17:53 Order name: AMMONIA; Complete Time: 18:27 sv 02/01 17:53 Order name: Chest Single View XRAY; Complete Time: 20:31 sv 02/01 17:53 Order name: Basic Metabolic Panel; Complete Time: 18:48 EDMS 02/01 17:53 Order name: Blood Culture EDMS 02/01 17:53 Order name: CBC with Automated Diff; Complete Time: 18:27 EDMS 02/01 18:46 Order name: Glucose, Ancillary Testing; Complete Time: 18:48 EDMS 02/01 19:03 Order name: Urine Dipstick--Ancillary (enter results); Complete Time: 20:31 ar5 02/01 17:53 Order name: Accucheck; Complete Time: 18:24 sv 02/01 17:53 Order name: Cardiac monitoring; Complete Time: 18:24 sv 02/01 17:53 Order name: EKG - Nurse/Tech; Complete Time: 18:24 sv 02/01 17:53 Order name: IV Saline Lock - Large Bore; Complete Time: 18:24 sv 02/01 17:53 Order name: Labs collected and sent; Complete Time: 18:25 sv 02/01 17:53 Order name: O2 Per Protocol; Complete Time: 18:25 sv 02/01 17:53 Order name: O2 Sat Monitoring; Complete Time: 18:25 sv 02/01 17:53 Order name: Urine Dipstick-Ancillary (obtain specimen); Complete Time: 19:01 sv 02/01 18:16 Order name: EKG Electrocardiogram; Complete Time: 18:24 EDMS 02/01 18:27 Order name: Simmons; Complete Time: 19:01 marquise Administered Medications: 18:45 Drug: NS 0.9% 250 ml Route: IV; Rate: bolus; Site: right upper arm; sv 19:05 Follow up: Response: No adverse reaction; IV Status: Completed infusion; IV Intake: sv 250ml 19:03 Drug: Lactulose 30 grams Volume: 45 ml; Route: PO; sv 19:12 Follow up: Response: No adverse reaction sv 19:09 Drug: Solu-CORTEF 100 mg Route: IVP; Site: right upper arm; sv 19:12 Follow up: Response: No adverse reaction sv 19:10 Drug: Rocephin - (cefTRIAXone) 1 grams Route: IVPB; Infused Over: 30 mins; Site: right sv upper arm; 19:10 Drug: ProTONIX 40 mg Route: IVP; Site: right upper arm; sv 19:12 Follow up: Response: No adverse reaction sv 19:30 Drug: Lopressor 2.5 mg Route: IVP; Site: right antecubital; ea 19:40 Drug: Lopressor 2.5 mg Route: IVP; Site: right antecubital; ea 19:55 Drug: Flagyl 500 mg Volume: 100 ml; Route: IVPB; Rate: 200 ml/hr; Infused Over: 30 ea mins; Site: right antecubital; 20:00 Drug: Vitamin K1 10 mg Route: Sub-Q; Site: right upper arm; ea Point of Care Testing: Blood Glucose: 18:00 Blood Glucose: 149 mg/dL; sv Ranges: Critical Glucose Levels:Adult <50 mg/dl or >400 mg/dl <40 mg/dl or >180 mg/dl Disposition: 02/01/19 18:32 Transfer ordered to [facility]. Diagnosis are Ascites, Unspecified cirrhosis of liver, Encephalopathy, unspecified, Tachycardia, unspecified, Unspecified kidney failure, Ventral hernia, Altered mental status, unspecified. - Reason for transfer: Higher level of care. - Accepting physician is to [facility] ICU, DR ISAAC. - Condition is Fair. - Problem is new. - Symptoms are unchanged. Signatures: Dispatcher [employer] Sarah Abdi, RN Stanislaw Mcdonald MD MD cha Antunez, Elena, RN RN ea Corrections: (The following items were deleted from the chart) 20:31 18:32 02/01/2019 18:32 Transfer ordered to [facility]. Diagnosis is marquise Ascites; Unspecified cirrhosis of liver; Encephalopathy, unspecified; Tachycardia, unspecified. Reason for transfer: Higher level of care. Accepting physician is to [facility]. Condition is Fair. Problem is new. Symptoms are unchanged. marquise 20:33 20:31 02/01/2019 18:32 Transfer ordered to [facility]. Diagnosis is Ascites; marquise Unspecified cirrhosis of liver; Encephalopathy, unspecified; Tachycardia, unspecified. Reason for transfer: Higher level of care. Accepting physician is to [facility] ICU, DR ISAAC. Condition is Fair. Problem is new. Symptoms are unchanged. marquise 21:20 20:33 02/01/2019 18:32 Transfer ordered to [facility]. Diagnosis is Ascites; ea Unspecified cirrhosis of liver; Encephalopathy, unspecified; Tachycardia, unspecified; Unspecified kidney failure; Ventral hernia; Altered mental status, unspecified. Reason for transfer: Higher level of care. Accepting physician is to [facility] ICU, DR ISAAC. Condition is Fair. Problem is new. Symptoms are unchanged. marquise
--- NOTE | 2019-02-01 18:32 | ER ---
Nurse's Notes [facility] Name: Abhishek Davis Age: 53 yrs Sex: Male : 1965 Arrival Date: 02/01/2019 Time: 17:51 Bed 4 Private MD: Diagnosis: Ascites;Unspecified cirrhosis of liver;Encephalopathy, unspecified;Tachycardia, unspecified;Unspecified kidney failure;Ventral hernia;Altered mental status, unspecified Presentation: 02/01 17:45 Presenting complaint: EMS states: [facility] staff called for wheezing 85% RA placed sv on O2 \T\ 5L per NC HR-150s. On EMS arrival pt was 100% on 5L NC, HR-130s BP 120/70 Temp99, BS-167. Normally A\T\O x3, pt is altered at this time. Transition of care: patient was received from another setting of care (long-term care facility), [facility]. Onset of symptoms was February 01, 2019. Risk Assessment: Do you want to hurt yourself or someone else? Unable to obtain. Initial Sepsis Screen: Does the patient meet any 2 criteria? Altered Mental Status. HR > 90 bpm. Yes Does the patient have a suspected source of infection? No. Patient's initial sepsis screen is negative. Care prior to arrival: Glucose check: 167 Oxygen administered. via nasal cannula. 17:45 Method Of Arrival: EMS: [facility] sv 17:45 Acuity: KACEY 2 sv Triage Assessment: 17:45 General: Appears uncomfortable, unkempt, Behavior is cooperative, quiet. Pain: Denies sv pain. Neuro: Level of Consciousness is awake, alert, obeys commands, confused, Oriented to none. Respiratory: Airway is patent Respiratory effort is even, unlabored, Respiratory pattern is regular, symmetrical, Onset: The symptoms/episode began/occurred today, the patient has moderate shortness of breath. GI: Abdomen is distended, discolored, Pt has deformity noted to the abdomen. EMS stated that they were told it was from his umbilical hernia. Derm: Skin is fragile, is thin, with poor turgor Skin is icteric, jaundiced. Historical: - Allergies: 18:19 No Known Allergies; sv - Home Meds: 18:19 ergocalciferol (vitamin D2) miscellaneous powd [Active]; hydroxyzine HCl 25 mg Oral tab sv PRN [Active]; Lactulose Oral 30 mL 3 times per day [Active]; midodrine 10 mg Oral tab 1 tab 3 times per day [Active]; mirtazapine 7.5 mg Oral tab 1 tabs once daily [Active]; ondansetron HCl 4 mg Oral tab 1 tabs every 12 hours [Active]; pantoprazole 40 mg Oral TbEC 2 tabs once daily [Active]; multivitamin oral tab daily [Active]; rifaximin oral 550 mg PO BID oral [Active]; tramadol 50 mg Oral tab 1 tab every 6 hours [Active]; ursodiol 300 mg Oral cap 1 cap 2 times per day [Active]; - PMHx: 18:19 Anemia; renal insufficiency; Umbilical hernia; Vitamin D deficiency; Depression; sv Encephalopathy; GERD; Alcoholic cirrhosis; Dermatitis; Muscle weakness; Lack of coordination; - Immunization history:: Adult Immunizations up to date. - Social history:: Smoking status: Patient/guardian denies using tobacco. - Family history:: not pertinent. - Ebola Screening: : No symptoms or risks identified at this time. Screenin:25 Abuse screen: Denies threats or abuse. Denies injuries from another. Nutritional sv screening: No deficits noted. Tuberculosis screening: No symptoms or risk factors identified. Fall Risk No fall in past 12 months (0 pts). Secondary diagnosis (15 points) AMS. IV access (20 points). Ambulatory Aid- None/Bed Rest/Nurse Assist (0 pts). Gait- Normal/Bed Rest/Wheelchair (0 pts) Mental Status- Overestimates/Forgets Limitations (15 pts.). Total Ty Fall Scale indicates High Risk Score (45 or more points). Fall prevention measures have been instituted. Side Rails Up X 2 Frequent Obs/Assessments Occuring As available patient and family educated on Fall Prevention Program and Strategies. Assessment: 18:30 Reassessment: Patient appears in no apparent distress at this time. No changes from sv previously documented assessment. 18:50 Reassessment: Patient appears in no apparent distress at this time. No changes from sv previously documented assessment. 18:52 Reassessment: Traci from [facility] is on saturation for ICU. iw 19:10 General: Appears in no apparent distress. Behavior is calm. Neuro: Level of ea Consciousness is awake, alert, confused, Oriented to person. Cardiovascular: Patient's skin is warm and dry. Rhythm is sinus tachycardia. Respiratory: Airway is patent Respiratory effort is even, unlabored, Respiratory pattern is regular, symmetrical. GI: Abdomen is distended, noted to have ascites. Derm: Skin is jaundiced, pale, Skin temperature is warm Bruising that is dark purple, on right arm and left arm. 20:00 Reassessment: Patient and/or family updated on plan of care and expected duration. Pain ea level reassessed. Pt alert and oriented to self. Respirations even and unlabored. Chest expansions even and symmetrical. is at bedside. No obvious s/s of pain or discomfort noted at this time. 20:23 Reassessment: Report called to Pat at [facility] ICU. ea 21:15 Reassessment: Patient and/or family updated on plan of care and expected duration. Pain ea level reassessed. [facility] at facility for transfer, report given to EMS. Pt remains alert and oriented to self. Respirations even and unlabored. Chest expansions even and symmetrical. No s/s of pain noted at this time. Pt left ED on stretcher per EMS. Pt tolerating well. Vital Signs: 17:47 BP 112 / 90; Pulse 148; Resp 26; Temp 99.9(O); Pulse Ox 95% ; sv 18:47 BP 129 / 101; Pulse 136; Resp 19; Pulse Ox 98% on R/A; sv 19:00 BP 132 / 101; Pulse 142; Resp 19; Pulse Ox 97% ; ea 19:30 BP 122 / 101; Pulse 133; Resp 17; Pulse Ox 96% on R/A; ea 19:36 BP 122 / 104; Pulse 118; Resp 19; Pulse Ox 97% ; ea 20:00 BP 135 / 104; Pulse 113; Resp 19; Temp 98.7; Pulse Ox 99% ; ea 21:00 BP 134 / 102; Pulse 108; Resp 19; Pulse Ox 98% ; ea ED Course: 17:51 Patient arrived in ED. sv 17:53 Stanislaw Stratton MD is Attending Physician. marquise 17:55 EKG done, by production technologist. reviewed by Yasir Watkins MD. sm3 17:55 Patient has correct armband on for positive identification. Placed in gown. Bed in low sv position. Call light in reach. Side rails up X2. monitoring specialist on. Pulse ox on. NIBP on. Door closed. Head of bed elevated. 18:00 Initial lab(s) drawn, by me, sent to lab. First set of blood cultures drawn by me. sv Inserted saline lock: 18 gauge in right upper arm, using aseptic technique. Blood collected. Flushed right with 5 ml normal saline upper arm. 18:00 Arm band placed on. sv 18:07 Sarah Singh, RN is Primary Nurse. sv 18:14 Triage completed. sv 18:24 Basic Metabolic Panel Sent. sv 18:24 CBC with Diff Sent. sv 18:24 Blood Culture Adult (2) Sent. sv 18:25 ED physician to see patient. sv 18:34 Notified ED physician of a critical lab result(s). lactic acid-3.0. sv 18:40 Chest Single View XRAY In Process Unspecified. EDMS 18:50 Urine collected: Simmons catheter specimen, cloudy, adolfo colored. Simmons cath inserted, sv using sterile technique, 16 Fr., by me, balloon inflated, to gravity drainage, urine specimen collected. 19:14 Primary Nurse role handed off by Sarah Singh, RN sv 19:24 Report given to Agustina NÚÑEZ and Paras NÚÑEZ. sv 20:14 Agustina Stout, RN is Primary Nurse. ea 21:00 No provider procedures requiring assistance completed. Patient transferred, IV remains ea in place. Administered Medications: 18:45 Drug: NS 0.9% 250 ml Route: IV; Rate: bolus; Site: right upper arm; sv 19:05 Follow up: Response: No adverse reaction; IV Status: Completed infusion; IV Intake: sv 250ml 19:03 Drug: Lactulose 30 grams Volume: 45 ml; Route: PO; sv 19:12 Follow up: Response: No adverse reaction sv 19:09 Drug: Solu-CORTEF 100 mg Route: IVP; Site: right upper arm; sv 19:12 Follow up: Response: No adverse reaction sv 19:10 Drug: Rocephin - (cefTRIAXone) 1 grams Route: IVPB; Infused Over: 30 mins; Site: right sv upper arm; 19:10 Drug: ProTONIX 40 mg Route: IVP; Site: right upper arm; sv 19:12 Follow up: Response: No adverse reaction sv 19:30 Drug: Lopressor 2.5 mg Route: IVP; Site: right antecubital; ea 19:40 Drug: Lopressor 2.5 mg Route: IVP; Site: right antecubital; ea 19:55 Drug: Flagyl 500 mg Volume: 100 ml; Route: IVPB; Rate: 200 ml/hr; Infused Over: 30 ea mins; Site: right antecubital; 20:00 Drug: Vitamin K1 10 mg Route: Sub-Q; Site: right upper arm; ea Point of Care Testing: Blood Glucose: 18:00 Blood Glucose: 149 mg/dL; sv Ranges: Intake: 19:05 IV: 250ml; Total: 250ml. sv Outcome: 18:32 ER care complete, transfer ordered by . [facility] 19:30 Instructed on the need for transfer, Demonstrated understanding of instructions. ea 21:15 Patient left the ED. ea 21:15 Transferred by ground EMS to [facility], Transfer form ea completed. 21:15 Condition: stable Signatures: Dispatcher [employer] EDJasbir Vegas [email or web address] Sarah Singh, Stanislaw Mcdonald RN, MD MD cha Williams, Irene, RN RN iw Antunez, Elena, RN RN ea Montes, Shakira 3 Corrections: (The following items were deleted from the chart) 18:38 18:34 Notified ED physician of a critical lab result(s). lactic acid-3.6 sv sv 19:01 19:00 Urine collected: Simmons catheter specimen, cloudy, adolfo colored, jb1 sv 19:01 19:00 Simmons cath inserted, using sterile technique, 16 Fr., by ri, balloon inflated, to sv gravity drainage, urine specimen collected. jb1 22:15 21:20 Patient left the ED. ea ea 02/02 07:21 07:20 BP 134 / 102; Pulse 108bpm; Resp 19bpm; Pulse Ox 98%; ea ea
[2019-02-01 18:38] LABS: Albumin 2.6 g/dL (3.4-5.0); Bilirubin Direct 2.1 mg/dL (0-0.2); Bilirubin Total 3.3 mg/dL (0.2-1.0); CKMB Creatine Kinase MB 3.2 ng/mL (0.3-3.6); Potassium 4.9 mmol/L (3.5-5.1); Protein, Total 6.5 g/dL (6.4-8.2); Troponin (Emerg Dept Use Only) 0.04 ng/mL (0.0-0.045)
[2019-02-01] MEDS ORDERED: PANTOPRAZOLE 40 MG INJ ONE (18:52)
[2019-02-01] MEDS ORDERED: CEFTRIAXONE/SWI 1gm 1 GM/10 ML SYR ONE (18:52)
[2019-02-01] MEDS ORDERED: HYDROCORTISONE SUC 100 MG INJ ONE (18:52)
[2019-02-01] MEDS ORDERED: NA CHLORIDE 0.9% 1,000 ML ONE (18:52)
[2019-02-01] MEDS ORDERED: LACTULOSE 20 GM/30 ML UCUP ONE (18:53)
[2019-02-01 19:24] LABS: Urine Bacteria <20 /HPF (NONE SEEN); Urine RBC <5 /HPF (NONE SEEN)
[2019-02-01 19:25] LABS: Urine Culture Reflex Order NOT NEEDED
[2019-02-01] MEDS ORDERED: METRONIDAZOLE 500mg IVPB 500 MG/100 ML BAG IV ONE (19:36)
[2019-02-01] MEDS ORDERED: METOPROLOL TARTRATE 5 MG/5 ML INJ IV ONE (19:36)
[2019-02-01] MEDS ORDERED: VITAMIN K (ADULT) 10 MG/ML ONE (19:48)
--- NOTE | 2019-02-01 19:50 | RAD REPORT ---
EXAM DESCRIPTION: RAD - Chest Single View - 02/01/2019 6:40 pm CLINICAL HISTORY: sepsis Chest pain. COMPARISON: Chest Single View dated 12/17/2018; Chest Single View dated 12/09/2018; Abdomen 1 View ([facility]) dated 12/05/2018; Chest Single View dated 12/03/2018 FINDINGS: Portable technique limits examination quality. The lungs are underinflated resulting in vascular crowding. The heart is normal in size. No displaced fractures. IMPRESSION: Underinflated lungs.
[2019-02-01 20:02] LABS: Urine Blood NEGATIVE (NEG); Urine Glucose NEGATIVE (NEG); Urine Protein NEGATIVE (NEG); Urine pH 5.5 (5.0-7.0)
[2019-02-01 21:53] VITALS: BP 135/104; TEMP 98.7; O2SAT 99
--- NOTE | 2019-02-02 11:46 | EKG ---
Test Date: 2019-02-01 Test Time: 17:51:17 [employer]: [facility] MEASUREMENT RESULTS: Intervals: Rate: 147 MN: 140 QRSD: 76 QT: 258 QTc: 403 Jackson: P: 37 MN: 140 QRS: -24 T: 61 INTERPRETIVE STATEMENTS: Sinus tachycardia with premature atrial complexes Inferior infarct, age undetermined Anterolateral infarct, age undetermined Abnormal ECG Compared to ECG 12/17/2018 01:25:26 Atrial premature complex(es) now present Myocardial infarct finding still present Electronically Signed On 02-02-19 10:05:46 CDT by Ghanshyam Young
== END 2019-02-01 21:20 | disposition short-term general hospital (02) ==
LOC: ER 17:49
DX: G93.40 Encephalopathy, unspecified (principal); K70.31 Alcoholic cirrhosis of liver with ascites; R00.0 Tachycardia, unspecified; R41.82 Altered mental status, unspecified; K43.9 Ventral hernia without obstruction or gangrene; F32.9 Major depressive disorder, single episode, unspecified
CPT/HCPCS: 36415; 51702; 71045; 80048; 80076; 81003; 81015; 82140; 82550; 82553; 82962; 83605; 83690; 84145; 84484; 85025; 85610; 85730; 87040; 93005; 96372; 99285; C9113; J0696; J1720; J3430; J7030